=== PATIENT | female | born 1960 | race African-American/Black ===

== ENCOUNTER 2019-11-23 | Outpatient (REF) | payer OTHER, SELFPAY | END 2019-11-23 00:01 | disposition home or self-care (01) | LOC: HO.MDS | PROVIDERS: PCP Family Medicine; Visit Provider Internal Medicine Pulmonary Disease | DX: J45.50 Severe persistent asthma, uncomplicated (principal); K75.81 Nonalcoholic steatohepatitis (NASH); I77.819 Aortic ectasia, unspecified site; K59.04 Chronic idiopathic constipation | CPT/HCPCS: 99213 ==

== ENCOUNTER → 2019-11-24 10:26 | Outpatient (REF) | payer OTHER, SELFPAY ==
--- NOTE | 2019-11-24 10:19 | CA_ITS ---
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 The visually estimated ejection fraction is between 60-65%. - There is an interatrial septal aneurysm seen. Interatrial shunt cannot be excluded. - Recommend contrast study to evaluate intracardiac shunting. - No obvious valvular pathology seen on this study. - There is mild dilatation of the ascending aorta measuring 4.20 cm. Findings Left Ventricle Normal left ventricular cavity size. There is mildly increased left ventricular wall thickness. The left ventricular systolic function is normal. The visually estimated ejection fraction is between 60-65%. There is no evidence of regional wall motion abnormalities. Diastolic function is normal for age. Right Ventricle Normal right ventricular cavity size and systolic function. Atria The left atrium is normal in size. There is an interatrial septal aneurysm seen. Interatrial shunt cannot be excluded. The right atrium is normal in size. Aortic Valve There is a normal trileaflet aortic valve. There is mild calcification of the aortic valve. There is no aortic valve stenosis. There is trace (trivial) aortic valve regurgitation. Mitral Valve The mitral valve appears normal. There is trace mitral valve regurgitation. There is no mitral valve stenosis. Pulmonic Valve The pulmonic valve was not well visualized. There is trace pulmonic valve regurgitation. Tricuspid Valve Normal tricuspid valve structure. There is trace tricuspid valve regurgitation. The pulmonary artery systolic pressure is normal. Great Vessels There is mild dilatation of the ascending aorta measuring 4.20 cm. Venous The inferior vena cava is normal in size and collapses greater than 50% with inspiration. Pericardium/Pleural There is no evidence of pericardial effusion. Prior Study Comparison Changes noted compared to prior study dated: 02/04/2008. Recommendations, Care & Conclusions No obvious valvular pathology seen on this study. Recommend contrast study to evaluate intracardiac shunting. Measurements 2D Linear Measurements IVSd: 1.31 0.6-0.9/0.6-1.0 cm LVIDd: 4.53 3.9-5.3/4.2-5.9 cm LVIDd Index: 2.30 2.4-3.2/2.2-3.1 cm/m2 LVIDs: 3.49 2.0-3.6 cm LVPWd: 1.05 0.7-1.1 cm Ao Root: 3.30 2.1-3.5 cm LA Diam: 3.50 2.7-3.8/3.0-4.0 cm LAIDs Index: 1.78 1.5-2.3 cm/m2 LV Mass: 243.49 67-162/88-224 g LV Mass Index: 123.60 43-95/49-115 g/m2 LVOT Diam: 2.20 3.0+(-)1.3 cm 2D Systolic Function EF 4C: 73.50 >55% EF 2C: 57.10 >55% EF BiP: 66.40 >55% Mitral Valve MV Pk E: 0.38 MV PK A: 0.63 MV Decel Time: 296.00 E/A: 0.60 E'Lateral: 5.61 E'Medial: 5.42 E/E' Med: 7.00 E/E' Lat: 6.70 PHT: 87.00 MVA PHT: 2.53 Decel Mobile: 1.28 Aortic Valve AoV Pk Robert: 1.15 AoV Pk Grad: 5.00 AI Pk Robert: 3.73 AI Mobile: 1.19 LVOT LVOT Pk Robert: 0.95 LVOT Mn Robert: 0.71 LVOT VTI: 0.21 LVOT Pk Grad: 4.00 LVOT Mn Grad: 2.00 LVOT Diam: 2.20 LVOT Area: 3.80 Diastolic Function MV Pk E: 0.38 MV Pk A: 0.63 E/A: 0.60 E'Medial: 5.42 E/E' Med: 7.00 E' Laterial: 5.61 E/E' Lat: 6.70 Tricuspid Valve TR Pk Robert: 2.01 TR Pk Grad: 16.00 RA Press: 3.00 RVSP: 19.00 Great Vessels Aorta Ao Root-2D: 3.30 2.0-3.7 cm Ao Asc: 4.30 2.1-3.4 cm Updated in Other Vendor System with Status of Final Felipe Alanis MD electronically signed on 11/27/2019 1:06:05 PM with status of Final
== END ==
LOC: HO.CARD 10:26
PROVIDERS: PCP Nurse Practitioner Family; Visit Provider Internal Medicine Cardiovascular Disease
DX: R07.9 Chest pain, unspecified (principal)
CPT/HCPCS: 93306

== ENCOUNTER → 2019-11-25 09:42 | Outpatient (BNVA) | payer OTHER, SELFPAY | PROVIDERS: PCP Nurse Practitioner Primary Care; Referring Provider Nurse Practitioner Primary Care; Visit Provider Dietitian, Registered | DX: Z76.89 Persons encountering health services in other specified circumstances (principal) ==

== ENCOUNTER 2019-12-07 10:36 | Outpatient (REF) | payer OTHER, SELFPAY | END 2019-12-07 10:37 | disposition home or self-care (01) | LOC: HO.MDS 10:36 | PROVIDERS: PCP Family Medicine; Visit Provider Internal Medicine Pulmonary Disease | DX: J45.50 Severe persistent asthma, uncomplicated (principal) | CPT/HCPCS: 96372 ==

== ENCOUNTER 2019-12-07 11:02 | Outpatient (REF) | payer OTHER, SELFPAY | END 2019-12-07 11:03 | disposition home or self-care (01) | LOC: HO.LAB 11:02 | PROVIDERS: Visit Provider Internal Medicine | DX: Z20.828 Contact with and (suspected) exposure to other viral communicable diseases (principal) | CPT/HCPCS: 87635 ==

== ENCOUNTER 2019-12-14 13:29 | Outpatient (REF) | payer OTHER, SELFPAY | END 2019-12-14 13:30 | disposition home or self-care (01) | LOC: HO.LAB 13:29 | PROVIDERS: Visit Provider Internal Medicine | DX: Z20.828 Contact with and (suspected) exposure to other viral communicable diseases (principal) | CPT/HCPCS: 87635 ==

== ENCOUNTER 2019-12-22 10:42 | Outpatient (REF) | payer OTHER, SELFPAY | END 2019-12-22 10:43 | disposition home or self-care (01) | LOC: HO.MDS 10:42 | PROVIDERS: PCP Family Medicine; Visit Provider Internal Medicine Pulmonary Disease | DX: J45.909 Unspecified asthma, uncomplicated (principal) | CPT/HCPCS: 96372; J2357 ==

== ENCOUNTER 2019-12-23 17:15 | Outpatient (REF) | payer OTHER, SELFPAY | END 2019-12-23 17:16 | disposition home or self-care (01) | LOC: HO.LAB 17:15 | PROVIDERS: Visit Provider Internal Medicine | DX: Z20.828 Contact with and (suspected) exposure to other viral communicable diseases (principal) | CPT/HCPCS: C9803; U0003 ==

== ENCOUNTER 2019-12-25 10:51 | Emergency (ER) | payer OTHER, SELFPAY ==
--- NOTE | 2019-12-25 11:22 | XR_ITS ---
EXAMINATION: XR CHEST CLINICAL INFORMATION: Cough. COMPARISON: Several priors. Most recent of 11/17/19. TECHNIQUE: Frontal view of the chest was obtained. FINDINGS: There is a small linear opacity at the left base consistent with subsegmental atelectasis or scarring. The lungs are otherwise clear. The pleural spaces are clear. Heart size is normal. Atherosclerotic changes in the thoracic aorta with mild unfolding is unchanged. No acute bony abnormality. XR/XR chest 1V IMPRESSION: Small linear opacity left base. Otherwise unremarkable. No pneumonic consolidation.
--- NOTE | 2019-12-25 11:22 | ED_ITS ---
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 Mode of arrival: ambulatory Limitations: no limitations History of Present Illness MD elicited complaint: cough, rhinorrhea and nasal congestion Pertinent past history: asthma Onset (ago): day(s) (5) Consistency: constant Severity: moderate Able to tolerate fluids by mouth: Yes Exacerbating factors: nothing Relieving factors: nothing Associated symptoms: chills, myalgias, rhinorrhea, cough and shortness of breath Treatments prior to arrival: other (on prednisone x 5 days, had COVID test friday, has seen PCP) Related Data Home Medications Medication Instructions Recorded Confirmed acetaminophen 325 mg tablet 0 mg PO 11/20/19 11/20/19 albuterol sulfate 90 mcg/actuation 2 puff PO QID 11/20/19 11/20/19 aerosol inhaler alcohol swabs pad TOPICAL DAILY 11/20/19 11/20/19 amlodipine 10 mg tablet 10 mg PO BEDTIME 11/20/19 11/20/19 blood sugar diagnostic #10 ea 11/20/19 11/20/19 blood-glucose meter #1 ea 11/20/19 11/20/19 buspirone 5 mg tablet 5 mg PO BID 11/20/19 11/20/19 calcium carbonate 600 mg (1,500 1 tab PO BID 11/20/19 11/20/19 mg)-vitamin D3 400 unit tablet cetirizine 10 mg tablet 10 mg PO BEDTIME 11/20/19 11/20/19 cholecalciferol (vitamin D3) 50 50 mcg PO QAM 11/20/19 11/20/19 mcg (2,000 unit) capsule clonazepam 1 mg tablet 3 mg PO Q OTHER DAY PRN 11/20/19 11/20/19 cyclobenzaprine 10 mg tablet 10 mg PO DAILY PRN 11/20/19 11/20/19 docusate sodium 100 mg capsule 100 mg PO BID 11/20/19 11/20/19 doxycycline hyclate 100 mg capsule 100 mg PO Q12H 11/20/19 11/20/19 enalapril maleate 10 mg tablet 10 mg PO QAM 11/20/19 11/20/19 fluticasone propionate 220 1 puff PO BID 11/20/19 11/20/19 mcg/actuation HFA aerosol inhaler fluticasone propionate 50 1 spray INTRANASAL BID 11/20/19 11/20/19 mcg/actuation nasal spray,suspension gabapentin 400 mg capsule 400 mg PO 11/20/19 11/20/19 glucose 4 gram chewable tablet 16 g PO 11/20/19 11/20/19 hydrocodone-homatropine 5 mg-1.5 5 ml PO Q6H PRN 11/20/19 11/20/19 mg/5 mL oral syrup ipratropium 0.5 mg-albuterol 3 mg ml INHALATION Q6H PRN 11/20/19 11/20/19 (2.5 mg base)/3 mL nebulization soln ipratropium 20 mcg-albuterol 100 1 puff PO QID 11/20/19 11/20/19 mcg/actuation mist for inhalation lancets 33 gauge #100 ea 11/20/19 11/20/19 levothyroxine 75 mcg tablet 75 mcg PO QAM 11/20/19 11/20/19 meclizine 25 mg tablet mg PO 11/20/19 11/20/19 montelukast 10 mg tablet 10 mg PO DAILY 11/20/19 11/20/19 multivitamin-ferrous 1 tab PO QAM 11/20/19 11/20/19 fumarate-folic acid 18 mg-400 mcg tablet omalizumab 150 mg/mL subcutaneous mg SUBCUT 11/20/19 11/20/19 syringe omeprazole 20 mg capsule,delayed 20 mg PO QAM 11/20/19 11/20/19 release potassium chloride 20 mEq 20 meq PO BID 11/20/19 11/20/19 tablet,extended release(part/cryst) pravastatin 80 mg tablet 80 mg PO BEDTIME 11/20/19 11/20/19 risperidone 0.5 mg tablet 0.5 mg PO BID 11/20/19 11/20/19 tiotropium bromide 18 mcg capsule 1 cap INHALATION DAILY 11/20/19 11/20/19 with inhalation device tramadol 50 mg tablet 50 mg PO Q12H PRN 11/20/19 11/20/19 zolpidem 10 mg tablet 10 mg PO BEDTIME PRN 11/20/19 11/20/19 omeprazole 20 mg capsule,delayed 20 mg PO BID 11/23/19 11/23/19 release Previous Rx's Medication Instructions Recorded Saccharomyces swapnildii 250 mg 250 mg PO BID #50 ea 11/24/19 capsule glucose 4 gram chewable tablet 16 g PO Q15M PRN 30 Days #30 tab 12/03/19 plecanatide 3 mg tablet 3 mg PO DAILY 30 Days #30 tab 12/23/19 prednisone 10 mg tablet 40 mg PO DAILY 7 Days #28 tab 12/24/19 doxycycline hyclate 100 mg PO BID 7 Days #14 cap 12/25/19 hydrocodone-homatropine 5 ml PO Q6H PRN #60 ml 12/25/19 Allergies Allergy/AdvReac Type Severity Reaction Status Date / Time aspirin [Aspirin] Allergy Mild ITCHY Verified 12/25/19 11:59 THROAT azithromycin Allergy Unknown Unknown Verified 12/25/19 11:59 naproxen Allergy Unknown Unknown Verified 12/25/19 11:59 simvastatin Allergy Unknown Unknown Verified 12/25/19 11:59 onion [ONION] AdvReac Mild RED FACE Verified 12/25/19 11:59 Seafood Allergy Mild ITCHY Uncoded 12/25/19 11:59 THROAT,SWELLING 1st Choice Lancets Super Thin Allergy Unknown Unknown Uncoded 12/25/19 11:59 fish Allergy Unknown Unknown Uncoded 12/25/19 11:59 macrolide antibiotics Allergy Unknown Unknown Uncoded 12/25/19 11:59 NSAIDS Allergy Unknown Unknown Uncoded 12/25/19 11:59 onions Allergy Unknown Unknown Uncoded 12/25/19 11:59 salicylates Allergy Unknown Unknown Uncoded 12/25/19 11:59 SEAFOOD Allergy Unknown Unknown Uncoded 12/25/19 11:59 shellfish Allergy Unknown Unknown Uncoded 12/25/19 11:59 ANTIBIOTICS AdvReac Unknown RASH Uncoded 12/25/19 11:59 Review of Systems Review of Systems: Constitutional : No Fever, pos Chills, pos myalgias ENT/Mouth : No Hoarseness, No sore throat, pos Rhinorrhea Eyes: No Redness, No Discharge, No Vision Changes Cardiovascular : No Chest Pain, positive SOB, positive Dyspnea on Exertion, No Edema Respiratory : positive Cough, No Sputum, positive Wheezing, Gastrointestinal : No Nausea, No Vomiting, No Diarrhea, No abdominal Pain Genitourinary : No Dysuria, No Hematuria Musculoskeletal : No joint pain, No Myalgias Skin : No rash Neuro : No Weakness, No Numbness, No Headache Psych : No anxiety, depression Heme/Lymph: No Bruising, No Bleeding Endocrine : No Polyuria, No Polydipsia All other systems reviewed and are negative [facility] Past Medical History Attestation statement: The following information was validated with the patient. Medical History Cocaine abuse DVT (deep venous thrombosis) Menometrorrhagia Surgical History H/O colonoscopy with polypectomy History of esophagogastroduodenoscopy (EGD) History of hysterectomy History of lithotripsy History of selective injection of anesthetic agent around lumbar nerve root Hx of right breast biopsy Family History Family History (Updated 11/19/19 @ 12:32 by FABIAN Yang) Father No problems noted. Mother Myocardial infarction CVA (cerebral vascular accident) Social History Social History (Updated 12/25/19 @ 11:53 by Lenka Butt DO) Alcohol intake: never Smoking Status: Former smoker Use of substances other than those prescribed or required for medical reasons: No Advance Directives: No Advance Directives Information Provided: No Physical Exam Vital Signs: Vital Signs: Last Vital Signs Temp 98.7 F 12/25/19 12:04 Pulse 78 12/25/19 12:04 Resp 18 12/25/19 12:04 BP 148/91 H 12/25/19 12:04 Pulse Ox 95 12/25/19 12:04 Body Mass Index 37.2 Appearance: Alert. Oriented X3. No acute distress. Eyes: Pupils equal, round and reactive to light. ENT: Pharynx normal. Neck: Normal inspection. Neck supple. CVS: Normal heart rate and rhythm. Pulses normal. Respiratory: No respiratory distress. Breath sounds slightly decreased, mild end exp wheezes. Abdomen: Soft and nontender. Skin: Skin warm and dry. Normal skin color. Normal skin turgor. Extremities: No lower extremity edema. No calf ttp Neuro: Oriented X 3. No motor deficit. No sensory deficit. Course Course Course Narrative: feels better stable for DC MDM - URI/Sore Throat MDM Narrative Medical decision making narrative: 59 yo female with COPD, asthma here with URI symptoms, no hypoxia not toxic, no resp distress, already on steroids, will need neb, CXR, basic labs, COVID pending from Friday, anti tussive, possible doxy for bronchitis, dispo per results and findings. Lab Data Result diagrams: 12/25/19 12:12 12/25/19 12:12 Labs: Lab Results 12/25/19 12/25/19 12/25/19 Range/Units 12:12 12:12 12:12 WBC 7.6 (4.8-10.8) X10*3/uL RBC 4.26 (4.20-5.50) X10*6/uL Hgb 13.3 (12.0-16.0) g/dl Hct 39.2 (37-47) % MCV 92.0 (80-98) fL MCH 31.2 (27.0-33.0) pg MCHC 33.9 (31.0-35.0) g/dl RDW 13.5 (11.0-16.0) % Plt Count 265 (160-400) X10*3/uL MPV 9.6 (9.4-12.3) fL Immature Gran % (Auto) 0.3 (0.0-0.4) % Neut % (Auto) 78.4 H (45-73) % Lymph % (Auto) 18.0 L (20-40) % [place] % (Auto) 2.9 (2-11) % Eos % (Auto) 0.1 (0-4) % Baso % (Auto) 0.3 (0-2) % Lymph # (Auto) 1.4 (1.2-4.9) X10*3/uL [place] # (Auto) 0.2 (0.1-1.2) X10*3/uL Eos # (Auto) 0.0 (0.0-0.4) X10*3/uL Baso # (Auto) 0.0 (0.0-0.2) X10*3/uL Abs Immat Gran (auto) 0.02 (0.00-0.03) X10*3/uL Absolute Neuts (auto) 6.0 (2.0-8.3) X10*3/uL Absolute Nucleated RBC 0.000 (0.0-0.012) X10*3/uL Nucleated RBC % (auto) 0.0 (0.0-0.2) /100WBC Sodium 140 (135-145) mmol/L Potassium 3.9 (3.3-5.1) mmol/l Chloride 108 (96-108) mmol/L Carbon Dioxide 24 (22-29) mmol/L Anion Gap 12 (12-20) BUN 17 H (9-16) mg/dL Creatinine 0.86 (0.5-1.4) mg/dL Estim Creat Clear Calc 77.3 Estimated GFR > 60 Random Glucose 145 H (60-115) mg/dL Calcium 8.6 (8.4-10.2) mg/dL Troponin I High Sens < 3.5 (<3.5-17.0) ng/L ECG Data Attestation: I personally reviewed and interpreted this ECG as follows: ECG interpretation date: 12/25/19 ECG interpretation time: 11:50 Interpretation: Rate: 76 Rhythm: NSR with 1st degree AVB [place]: left, LVH Normal P waves. Normal NEREYDA. Normal QRS complex. ST T wave : normal qTC: normal prior studies: no acute ischemia The study has been interpreted contemporaneously by me. . Discharge Plan Discharge Clinical Impression: Bronchitis Patient Disposition: Home, Self-Care Instructions: Acute Bronchitis (ED) Prescriptions: New doxycycline hyclate 100 mg capsule 100 mg PO BID 7 Days Qty: 14 RF: 0 hydrocodone-homatropine 5-1.5 mg/5 mL (5 mL) syrup 5 ml PO Q6H PRN (Reason: cough) Qty: 60 RF: 0 No Action Saccharomyces boulardii [Florastor] 250 mg capsule 250 mg PO BID Qty: 50 RF: 5 glucose [Dex4 Glucose] 4 gram tablet,chewable 16 g PO Q15M PRN (Reason: hypoglycemia) 30 Days Qty: 30 RF: 5 plecanatide [Trulance] 3 mg tablet 3 mg PO DAILY 30 Days Qty: 30 RF: 5 prednisone 10 mg tablet 40 mg PO DAILY 7 Days Qty: 28 RF: 0 meclizine 25 mg tablet PO RF: 0 Xolair 150 mg/mL syringe subcut RF: 0 hydrocodone-homatropine 5-1.5 mg/5 mL syrup 5 ml PO Q6H PRN (Reason: cough) RF: 0 doxycycline hyclate 100 mg capsule 100 mg PO Q12H RF: 0 glucose 4 gram tablet,chewable 16 g PO RF: 0 tramadol 50 mg tablet 50 mg PO Q12H PRN (Reason: pain) RF: 0 ipratropium-albuterol 0.5 mg-3 mg(2.5 mg base)/3 mL solution for nebulization inhalation Q6H PRNRF: 0 alcohol swabs Pads, Medicated topical DAILY RF: 0 acetaminophen 325 mg tablet 0 mg PO RF: 0 zolpidem 10 mg tablet 10 mg PO BEDTIME PRNRF: 0 clonazepam 1 mg tablet 3 mg PO Q OTHER DAY PRNRF: 0 buspirone 5 mg tablet 5 mg PO BID RF: 0 Spiriva with HandiHaler 18 mcg capsule, w/inhalation device 1 cap inhalation DAILY RF: 0 fluticasone propionate 50 mcg/actuation spray,suspension 1 spray intranasal BID RF: 0 montelukast 10 mg tablet 10 mg PO DAILY RF: 0 Cerovite Advanced Formula 18-400 mg-mcg tablet 1 tab PO QAM RF: 0 cholecalciferol (vitamin D3) 50 mcg (2,000 unit) capsule 50 mcg PO QAM RF: 0 risperidone 0.5 mg tablet 0.5 mg PO BID RF: 0 albuterol sulfate 90 mcg/actuation HFA aerosol inhaler 2 puff PO QID RF: 0 docusate sodium 100 mg capsule 100 mg PO BID RF: 0 amlodipine 10 mg tablet 10 mg PO BEDTIME RF: 0 pravastatin 80 mg tablet 80 mg PO BEDTIME RF: 0 levothyroxine 75 mcg tablet 75 mcg PO QAM RF: 0 gabapentin 400 mg capsule 400 mg PO RF: 0 enalapril maleate 10 mg tablet 10 mg PO QAM RF: 0 cyclobenzaprine 10 mg tablet 10 mg PO DAILY PRNRF: 0 Combivent Respimat 20-100 mcg/actuation mist 1 puff PO QID RF: 0 (DME) lancets 33 gauge misc See Rx Instructions ea Not Applicable DAILY Qty: 100 RF: 0 Flovent HFA 220 mcg/actuation HFA aerosol inhaler 1 puff PO BID RF: 0 (DME) FreeStyle Lite Strips Strip See Rx Instructions ea Not Applicable DAILY Qty: 10 RF: 0 calcium carbonate-vitamin D3 600 mg(1,500mg) -400 unit tablet 1 tab PO BID RF: 0 omeprazole 20 mg capsule,delayed release(DR/EC) 20 mg PO QAM RF: 0 potassium chloride 20 mEq tablet,ER particles/crystals 20 meq PO BID RF: 0 cetirizine 10 mg tablet 10 mg PO BEDTIME RF: 0 (DME) blood-glucose meter Kit See Rx Instructions ea .ROUTE DAILY Qty: 1 RF: 0 omeprazole 20 mg capsule,delayed release(DR/EC) 20 mg PO BID RF: 0 Referrals: Sariah Vickers [Primary Care Provider] - 2 days (if not better) Print Language: Austrian
--- NOTE | 2019-12-25 11:32 | ECG_ITS ---
Test Reason : CHEST PAIN Blood Pressure : / mmHG Vent. Rate : 076 BPM Atrial Rate : 076 BPM P-R Int : 240 ms QRS Dur : 104 ms QT Int : 396 ms P-R-T Axes : 021 -32 021 degrees QTc Int : 445 ms Sinus rhythm with 1st degree A-V block Left anterior fascicular block Abnormal ECG When compared with ECG of 12-OCT-2019 19:41, No significant change was found Referred By: Lenka Btut Electronically Signed By:NATALIA WEBER MD
[2019-12-25 11:59] VITALS: BP 148/91; PULSE 83; RESP 16; TEMP 37.1; O2SAT 95; BMI 37.2
[2019-12-25] MEDS: HYDROcodone/Homat 5/1.5/5 ML 5 ML SYRUP PO (12:02)
[2019-12-25 12:04] VITALS: BP 148/91; PULSE 78; RESP 18; TEMP 37.1; O2SAT 95
[2019-12-25 12:17] LABS: Basophils Percent Auto 0.3 % (0-2); Eosinophils Percent Auto 0.1 % (0-4); Hematocrit 39.2 % (37-47); Hemoglobin 13.3 g/dl (12.0-16.0); Imm Gran Abs Auto 0.02 X10*3/uL (0.00-0.03); Imm Gran Pct Auto 0.3 % (0.0-0.4); Lymphocytes Absolute Auto 1.4 X10*3/uL (1.2-4.9); MANUAL DIFF FLAG NO; Mean Corpuscular HGB Conc 33.9 g/dl (31.0-35.0); Mean Corpuscular Hemoglobin 31.2 pg (27.0-33.0); Mean Platelet Volume 9.6 fL (9.4-12.3); Monocytes Absolute Auto 0.2 X10*3/uL (0.1-1.2); Monocytes Percent Auto 2.9 % (2-11); Neutrophils Percent Auto 78.4 % (45-73); Platelet Count 265 X10*3/uL (160-400); Red Blood Count 4.26 X10*6/uL (4.20-5.50); Red Cell Distribution Width 13.5 % (11.0-16.0); White Blood Count 7.6 X10*3/uL (4.8-10.8)
[2019-12-25 12:52] LABS: Anion Gap 12 (12-20); Blood Urea Nitrogen 17 mg/dL (9-16); Calcium 8.6 mg/dL (8.4-10.2); Carbon Dioxide 24 mmol/L (22-29); Chloride 108 mmol/L (96-108); Creatinine Clr Calc Pharmacy 77.3; Estimated Glomerular Filt Rate > 60; Glucose Random 145 mg/dL (60-115); Potassium 3.9 mmol/l (3.3-5.1); Sodium 140 mmol/L (135-145)
[2019-12-25 12:56] LABS: Troponin-I High Sensitivity < 3.5 ng/L (<3.5-17.0)
[2019-12-25] MEDS: Albuterol Sulfate (0.083%) 2.5 MG/3 ML VIAL.NEB INHALE (13:50)
[2019-12-25 14:02] VITALS: BP 146/96; PULSE 88; RESP 18; O2SAT 95
--- NOTE | 2019-12-25 14:09 | PC.NURSE ---
PT WAS TRIAGED C/O GENERAL MALAISE, PRODUCTIVE COUGH, CHILLS AT HOME X A FEW DAYS. LS CLEAR, HX ASTHMA. VS WNL, AFEBRILE. CALL MADE OUT TO RESPIRATORY FOR NEB TX. PT SPEAKING IN CLEAR FULL SENTENCES, RESP EVEN AND NONLABOURED. SKIN COLOUR APPROPRIATE FOR ETHNICITY, WARM & DRY.
== END 2019-12-25 14:15 | disposition home or self-care (01) ==
PROVIDERS: Emergency Provider Emergency Medicine
DX: J40 Bronchitis, not specified as acute or chronic (principal); R05 Cough; M79.10 Myalgia, unspecified site; Z79.899 Other long term (current) drug therapy
CPT/HCPCS: 36415; 71045; 80048; 84484; 85025; 93005; 94640; 99284; 99285

== ENCOUNTER 2020-01-06 10:09 | Outpatient (REF) | payer OTHER, SELFPAY | END 2020-01-06 10:10 | disposition home or self-care (01) | LOC: HO.MDS 10:09 | PROVIDERS: Visit Provider Internal Medicine Pulmonary Disease | DX: J45.909 Unspecified asthma, uncomplicated (principal) | CPT/HCPCS: 96372; J2357 ==

== ENCOUNTER 2020-01-11 17:09 | Outpatient (REF) | payer OTHER, SELFPAY | END 2020-01-11 17:10 | disposition home or self-care (01) | LOC: HO.LAB 17:09 | PROVIDERS: PCP Nurse Practitioner Primary Care; Visit Provider Internal Medicine | DX: Z20.828 Contact with and (suspected) exposure to other viral communicable diseases (principal) | CPT/HCPCS: C9803; U0003 ==

== ENCOUNTER 2020-01-17 08:42 | Outpatient (REF) | payer OTHER, SELFPAY ==
[2020-01-17 10:47] LABS: Estimated Average Glucose 166 mg/dL; Hemoglobin A1c % 7.4 %
[2020-01-17 11:25] LABS: Alanine Aminotransferase 16 U/L (0-31); Albumin Level 4.2 g/dL (3.5-5.0); Alkaline Phosphatase 84 U/L (39-117); Anion Gap 13 (12-20); Aspartate Amino Transferase 19 U/L (5-31); Bilirubin Total 0.4 mg/dL (0.0-1.0); Blood Urea Nitrogen 11 mg/dL (9-16); Calcium 8.8 mg/dL (8.4-10.2); Carbon Dioxide 26 mmol/L (22-29); Chloride 107 mmol/L (96-108); Cholesterol 197 mg/dL; Estimated Glomerular Filt Rate > 60; Glucose Fasting 139 mg/dL (60-99); HDL Cholesterol 64 mg/dL; LDL Cholesterol Calculated 110 mg/dl; Sodium 142 mmol/L (135-145); Total Protein 6.9 g/dL (6.5-8.0); Triglycerides 117 mg/dL
[2020-01-17 11:39] LABS: Vitamin B12 716 pg/mL (200-900)
[2020-01-17 11:40] LABS: Free T4 (Free Thyroxine) 1.04 ng/dL (0.71-1.85); Thyroid Stimulating Hormone 3.35 uIU/mL (0.32-4.0)
[2020-01-17 11:53] LABS: Creatinine Urine 152.71 mg/dL; Microalbum/Creatinine Ratio Ur 9.8 ug/mg cr
[2020-01-18 07:28] LABS: LDL Cholesterol Direct 111 mg/dL (<100)
== END 2020-01-17 08:43 | disposition home or self-care (01) ==
LOC: HO.LAB 08:42
PROVIDERS: PCP Nurse Practitioner Primary Care; Visit Provider Internal Medicine Endocrinology, Diabetes & Metabolism
DX: E11.65 Type 2 diabetes mellitus with hyperglycemia (principal)
CPT/HCPCS: 80053; 80061; 82043; 82607; 83036; 83721; 84439; 84443

== ENCOUNTER 2020-01-17 10:30 | Outpatient (RCR) | payer OTHER, SELFPAY | END 2020-03-06 11:06 | disposition other institution (70) | LOC: HO.PT 10:30 | PROVIDERS: Visit Provider Nurse Practitioner Primary Care | DX: R42 Dizziness and giddiness (principal) | CPT/HCPCS: 95992; 97161; 97535; Q3014 ==

== ENCOUNTER 2020-01-18 13:53 | Emergency (ER) | payer OTHER, SELFPAY | END 2020-01-18 16:49 | disposition left against medical advice (07) | PROVIDERS: Emergency Provider Emergency Medicine | DX: L02.214 Cutaneous abscess of groin (principal); Z79.899 Other long term (current) drug therapy | CPT/HCPCS: 10060; 99281 ==

== ENCOUNTER 2020-01-19 08:56 | Emergency (ER) | payer OTHER, SELFPAY ==
[2020-01-19 09:06] VITALS: BP 128/72; PULSE 97; RESP 18; TEMP 36.6; O2SAT 97; BMI 38.6
--- NOTE | 2020-01-19 09:17 | XR_ITS ---
EXAMINATION: XR CHEST CLINICAL INFORMATION: Shortness of breath, cough COMPARISON: Chest radiographs 12/25/2019, 11/17/2019, 11/11/2019 TECHNIQUE: Portable upright AP view of the chest was obtained. FINDINGS: The lungs are clear. There is no airspace consolidation or groundglass opacity or effusion. Subsegmental atelectasis left lateral base noted on prior study is resolved. The heart is normal in size. The costophrenic sulci are clear. The hilar and mediastinal contours and bony structures are unremarkable. XR/XR chest 1V IMPRESSION: Unremarkable examination.
--- NOTE | 2020-01-19 09:26 | ED.URI ---
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 No fevers, chills, vomiting. No shortness of breath or chest pain. <Alexandra Martinez NP - Last Filed: 01/19/20 12:08> MD elicited complaint: cough <MARKO Mcdaniels Last Filed: 01/19/20 12:08> Pertinent past history: asthma <MARKO Mcdaniels Last Filed: 01/19/20 12:08> Onset (ago): day(s) <MARKO Mcdaniels Last Filed: 01/19/20 12:08> Consistency: intermittent <MARKO Mcdaniels Last Filed: 01/19/20 12:08> Severity: mild <MARKO Mcdaniels Last Filed: 01/19/20 12:08> Able to tolerate fluids by mouth: Yes <MARKO Mcdaniels Last Filed: 01/19/20 12:08> Exacerbating factors: nothing <MARKO Mcdaniels Last Filed: 01/19/20 12:08> Relieving factors: nothing <Alexandra Martinez NP - Last Filed: 01/19/20 12:08> Associated symptoms: chills, myalgias, headache, cough, abdominal pain and diarrhea <Alexandra Martinez NP - Last Filed: 01/19/20 12:08> Treatments prior to arrival: none <Alexandra Martinez NP - Last Filed: 01/19/20 12:08> Related Data Home Medications: Home Medications Medication Instructions Recorded Confirmed acetaminophen 325 mg tablet 0 mg PO 11/20/19 01/11/20 albuterol sulfate 90 mcg/actuation 2 puff PO QID 11/20/19 01/11/20 aerosol inhaler alcohol swabs pad TOPICAL DAILY 11/20/19 01/11/20 amlodipine 10 mg tablet 10 mg PO BEDTIME 11/20/19 01/11/20 blood sugar diagnostic #10 ea 11/20/19 01/11/20 blood-glucose meter #1 ea 11/20/19 01/11/20 buspirone 5 mg tablet 5 mg PO BID 11/20/19 01/11/20 calcium carbonate 600 mg (1,500 1 tab PO BID 11/20/19 01/11/20 mg)-vitamin D3 400 unit tablet cetirizine 10 mg tablet 10 mg PO BEDTIME 11/20/19 01/11/20 cholecalciferol (vitamin D3) 50 50 mcg PO QAM 11/20/19 01/11/20 mcg (2,000 unit) capsule clonazepam 1 mg tablet 3 mg PO Q OTHER DAY PRN 11/20/19 01/11/20 cyclobenzaprine 10 mg tablet 10 mg PO DAILY PRN 11/20/19 01/11/20 docusate sodium 100 mg capsule 100 mg PO BID 11/20/19 01/11/20 enalapril maleate 10 mg tablet 10 mg PO QAM 11/20/19 01/11/20 fluticasone propionate 220 1 puff PO BID 11/20/19 01/11/20 mcg/actuation HFA aerosol inhaler fluticasone propionate 50 1 spray INTRANASAL BID 11/20/19 01/11/20 mcg/actuation nasal spray,suspension gabapentin 400 mg capsule 400 mg PO 11/20/19 01/11/20 glucose 4 gram chewable tablet 16 g PO 11/20/19 01/11/20 hydrocodone-homatropine 5 mg-1.5 5 ml PO Q6H PRN 11/20/19 01/11/20 mg/5 mL oral syrup ipratropium 0.5 mg-albuterol 3 mg ml INHALATION Q6H PRN 11/20/19 01/11/20 (2.5 mg base)/3 mL nebulization soln ipratropium 20 mcg-albuterol 100 1 puff PO QID 11/20/19 01/11/20 mcg/actuation mist for inhalation lancets 33 gauge #100 ea 11/20/19 01/11/20 meclizine 25 mg tablet mg PO 11/20/19 01/11/20 montelukast 10 mg tablet 10 mg PO DAILY 11/20/19 01/11/20 multivitamin-ferrous 1 tab PO QAM 11/20/19 01/11/20 fumarate-folic acid 18 mg-400 mcg tablet omalizumab 150 mg/mL subcutaneous mg SUBCUT 11/20/19 01/11/20 syringe potassium chloride 20 mEq 20 meq PO BID 11/20/19 01/11/20 tablet,extended release(part/cryst) risperidone 0.5 mg tablet 0.5 mg PO BID 11/20/19 01/11/20 tramadol 50 mg tablet 50 mg PO Q12H PRN 11/20/19 01/11/20 zolpidem 10 mg tablet 10 mg PO BEDTIME PRN 11/20/19 01/11/20 omeprazole 20 mg capsule,delayed 20 mg PO BID 11/23/19 01/11/20 release codeine 10 mg-guaifenesin 100 mg/5 10 ml PO Q6H PRN 01/11/20 01/11/20 mL oral liquid fluticasone 250 mcg-salmeterol 50 ea INHALATION 01/11/20 01/11/20 mcg/dose blistr powdr for inhalation Previous Rx's Medication Instructions Recorded Saccharomyces boulardii 250 mg 250 mg PO BID #50 ea 11/24/19 capsule glucose 4 gram chewable tablet 16 g PO Q15M PRN 30 Days #30 tab 12/03/19 plecanatide 3 mg tablet 3 mg PO DAILY 30 Days #30 tab 12/23/19 hydrocodone-homatropine 5 ml PO Q6H PRN #60 ml 12/25/19 tiotropium bromide 18 mcg capsule 1 cap INHALATION DAILY 30 Days #30 12/31/19 with inhalation device inh levothyroxine 75 mcg tablet 75 mcg PO QAM 90 Days #90 tab 01/11/20 metformin 500 mg tablet,extended 500 mg PO BID 30 Days #60 tab 01/11/20 release 24 hr prednisone 40 mg PO DAILY #10 tab 01/19/20 bisacodyl 5 mg tablet,delayed See Rx Instructions PO BEDTIME 30 01/27/20 release Days #90 tab rosuvastatin 40 mg tablet 40 mg PO DAILY 30 Days #30 tab 01/27/20 <Alexandra Martinez NP - Last Filed: 01/19/20 12:08> Allergies/Adverse Reactions: Allergies Allergy/AdvReac Type Severity Reaction Status Date / Time aspirin [Aspirin] Allergy Mild ITCHY Verified 01/28/20 09:46 THROAT azithromycin Allergy Unknown Unknown Verified 01/28/20 09:46 naproxen Allergy Unknown Unknown Verified 01/28/20 09:46 simvastatin Allergy Unknown Unknown Verified 01/28/20 09:46 onion [ONION] AdvReac Mild RED FACE Verified 01/28/20 09:46 <Alexandra Martinez NP - Last Filed: 01/19/20 12:08> Review of Systems Review of Systems: Yes all other systems are reviewed and are negative <Alexandra Martinez NP - Last Filed: 01/19/20 12:08> Constitutional: Constitutional: Reports no additional constitutional complaints, Reports body ache(s), Denies chills, Denies fever(s), Denies headache(s) and Denies weakness <Alexandra Martinez NP - Last Filed: 01/19/20 12:08> Eyes: Eyes: Reports no additional eye complaints and Denies change in vision <Alexandra Martinez NP - Last Filed: 01/19/20 12:08> ENT: Reports system reviewed and no additional complaints, except as documented, Denies dizziness, Denies headache(s), Denies nasal congestion, Denies nasal discharge and Denies neck pain <Alexandra Martinez NP - Last Filed: 01/19/20 12:08> Cardiovascular: Cardiovascular: Reports no additional cardiovascular complaints, Denies chest pain, Denies leg edema and Denies dyspnea <Alexandra Martinez NP - Last Filed: 01/19/20 12:08> Respiratory: Respiratory: Reports no additional respiratory complaints, Reports cough and Denies dyspnea <Alexandra Martinez NP - Last Filed: 01/19/20 12:08> Gastrointestinal: Gastrointestinal: Reports no additional gastrointestinal complaints, Reports abdominal pain, Reports diarrhea, Denies nausea and Denies vomiting <Alexandra Martinez NP - Last Filed: 01/19/20 12:08> Genitourinary: Genitourinary: Reports no additional female genitourinary complaints and Denies urinary incontinence <Alexandra Martinez NP - Last Filed: 01/19/20 12:08> Musculoskeletal: Musculoskeletal: Reports no additional musculoskeletal complaints, Denies back pain, Denies arthralgias, Denies joint swelling, Denies neck pain, Denies numbness and Denies tingling <Alexandra Martinez NP - Last Filed: 01/19/20 12:08> Integumentary/Breasts: Skin/Breast: Reports system reviewed and no additional complaints, except as docu and Denies rash <Alexandra Martinez NP - Last Filed: 01/19/20 12:08> Neurologic: Reports system reviewed and no additional complaints, except as documented, Denies Abnormal speech present, Denies dizziness, Denies headache(s), Denies numbness, Denies tingling and Denies weakness <Alexandra Martinez NP - Last Filed: 01/19/20 12:08> PMF Past Medical History Attestation statement: The following information was validated with the patient. <Alexandra Martinez NP - Last Filed: 01/19/20 12:08> Source: old records reviewed and nursing notes reviewed <Alexandra Martinez NP - Last Filed: 01/19/20 12:08> Medical History: Medical History Cocaine abuse DVT (deep venous thrombosis) Hypothyroidism Menometrorrhagia Non-toxic multinodular goiter <Alexandra Martinez NP - Last Filed: 01/19/20 12:08> Surgical History: Surgical History H/O colonoscopy with polypectomy History of esophagogastroduodenoscopy (EGD) History of hysterectomy History of lithotripsy History of selective injection of anesthetic agent around lumbar nerve root Hx of right breast biopsy <Alexandra Martinez NP - Last Filed: 01/19/20 12:08> Family History Family History: Family History Father No problems noted. Mother Myocardial infarction CVA (cerebral vascular accident) <Alexandra Martinez NP - Last Filed: 01/19/20 12:08> Social History Social History: Social History (Updated 01/27/20 @ 08:36 by LIZET Cox) Household Members: None Alcohol intake: current Alcohol intake frequency: does not drink Smoking Status: Former smoker Smoked in Last 30 Days: No Use of substances other than those prescribed or required for medical reasons: No Advance Directives: No Advance Directives Information Provided: Yes Current occupational status: disabled <Alexandra Martinez NP - Last Filed: 01/19/20 12:08> Physical Exam Vital Signs: Vital Signs: Last Vital Signs Temp 97.6 F 01/19/20 11:04 Pulse 76 01/19/20 11:04 Resp 16 01/19/20 11:04 BP 131/90 H 01/19/20 11:04 Pulse Ox 98 01/19/20 11:14 Body Mass Index 38.6 <Alexandra Martinez NP - Last Filed: 01/19/20 12:08> Vital Signs: Last Vital Signs Temp 97.6 F 01/19/20 11:04 Pulse 76 01/19/20 11:04 Resp 16 01/19/20 11:04 BP 131/90 H 01/19/20 11:04 Pulse Ox 98 01/19/20 11:14 Body Mass Index 38.6 <Juan Ramon Vickers MD - Last Filed: 02/06/20 19:59> Const: General: cooperative, healthy appearing, comfortable and no acute distress <Alexandra Martinez NP - Last Filed: 01/19/20 12:08> Orientation/consciousness: patient oriented x3 <Alexandra Martinez NP - Last Filed: 01/19/20 12:08> Limitations: no limitations <Alexandra Martinez NP - Last Filed: 01/19/20 12:08> HENMT: Head: Yes normal to inspection <Alexandra Martinez NP - Last Filed: 01/19/20 12:08> Ears: hearing grossly normal bilaterally <Alexandra Martinez NP - Last Filed: 01/19/20 12:08> General nose exam: Normal external nose present <Alexandra Martinez NP - Last Filed: 01/19/20 12:08> Face and sinus: Yes normal facial exam <Alexandra Martinez NP - Last Filed: 01/19/20 12:08> Mouth: Normal oral and palatal mucosa present <Alexandra Martinez NP - Last Filed: 01/19/20 12:08> Throat: Yes posterior oropharynx normal <Alexandra Martinez NP - Last Filed: 01/19/20 12:08> Eyes: General: appearance normal, both eyes and all related structures <Alexandra Martinez NP - Last Filed: 01/19/20 12:08> Pupils: Equal, round and reactive pupils present <Alexandra Martinez NP - Last Filed: 01/19/20 12:08> Neck: Neck: Yes normal visual inspection <Alexandra Martinez NP - Last Filed: 01/19/20 12:08> Chest: Chest palpation & inspection: normal inspection of the chest <Alexandra Martinez NP - Last Filed: 01/19/20 12:08> Resp: Other: Patient has a forced expiratory wheeze. She has no inspiratory or expiratory wheezing on her lung exam. <Alexandra Martinez NP - Last Filed: 01/19/20 12:08> Effort & Inspection: normal respiratory effort <Alexandra Martinez NP - Last Filed: 01/19/20 12:08> Auscultation: clear to auscultation bilaterally <Alexandra Martinez NP - Last Filed: 01/19/20 12:08> Cardio: Rate: regular rate <Alexandra Martinez NP - Last Filed: 01/19/20 12:08> Rhythm: regular rhythm <Alexandra Martinez NP - Last Filed: 01/19/20 12:08> Peripheral pulses: Peripheral pulses 2+ throughout <Alexandra Martinez NP - Last Filed: 01/19/20 12:08> GI: Other: Mild epigastric discomfort. No rebound or guarding. <Alexandra Martinez NP - Last Filed: 01/19/20 12:08> Inspection: Yes normal to inspection <Alexandra Martinez NP - Last Filed: 01/19/20 12:08> Palpation (GI): Soft to palpation, nontender and no guarding <Alexandra Martinez NP - Last Filed: 01/19/20 12:08> Auscultation: normal bowel sounds <Alexandra Martinez NP - Last Filed: 01/19/20 12:08> Back/Spine/Pelvis: Thoracic/Lumbar Spine: thoracic and lumbar spine normal to inspection <Alexandra Martinez NP - Last Filed: 01/19/20 12:08> Skin: General skin exam: no rashes or lesions noted <Alexandra Martinez NP - Last Filed: 01/19/20 12:08> Neuro: General: patient oriented x3, no focal motor deficits and normal sensation to monofilament <Alexandra Martinez NP - Last Filed: 01/19/20 12:08> Cranial nerves: Yes Equal, round and reactive pupils present <Alexandra Martinez NP - Last Filed: 01/19/20 12:08> Cognition (Neuro): normal cognition <Alexandra Martinez NP - Last Filed: 01/19/20 12:08> Speech: No Abnormal speech present <Alexandra Martinez NP - Last Filed: 01/19/20 12:08> Gait exam (Neuro): Normal gait present <Alexandra Martinez NP - Last Filed: 01/19/20 12:08> Motor exam (neuro): 5/5 motor strength present throughout <Alexandra Martinez NP - Last Filed: 01/19/20 12:08> Extrem: General: Yes normal to inspection <Alexandra Martinez NP - Last Filed: 01/19/20 12:08> Course Course Course Narrative: 59-year-old female here with cough, congestion, chills, body aches, headache, upper abdominal pain diarrhea for the last 3-4 days. On exam patient appears well, stable vital signs, afebrile. Mild epigastric discomfort. Will check labs, COVID testing, chest x-ray. Will give bronchodilator, GI cocktail reassess. 1140- Labs unremarkable. Chest x-ray unremarkable. COVID testing negative. Patient is feeling improved and is tolerating p.o.. No abdominal pain on exam. Her lungs are clear with stable saturations. Likely viral syndrome with some gastritis. Reviewed worrisome signs and symptoms and when to return to the emergency department. Comfortable discharge home. <Alexandra Martinez NP - Last Filed: 01/19/20 12:08> I have reviewed the chart <Juan Ramon Vickers MD - Last Filed: 02/06/20 19:59> MDM - URI/Sore Throat Medical Records Attestation: I reviewed the patient's medical records. <Alexandra Martinez NP - Last Filed: 01/19/20 12:08> Lab Data Attestation: I reviewed the patient's lab results. <Alexandra Martinez NP - Last Filed: 01/19/20 12:08> Result diagrams: : 01/19/20 10:03 01/19/20 10:03 <Alexandra Martinez NP - Last Filed: 01/19/20 12:08> Labs: Lab Results 01/19/20 01/19/20 01/19/20 Range/Units 10:00 10:03 10:03 WBC 6.3 (4.8-10.8) X10*3/uL RBC 4.59 (4.20-5.50) X10*6/uL Hgb 14.1 (12.0-16.0) g/dl Hct 42.9 (37-47) % MCV 93.5 (80-98) fL MCH 30.7 (27.0-33.0) pg MCHC 32.9 (31.0-35.0) g/dl RDW 13.9 (11.0-16.0) % Plt Count 289 (160-400) X10*3/uL MPV 9.7 (9.4-12.3) fL Immature Gran % (Auto) 0.2 (0.0-0.4) % Neut % (Auto) 43.4 L (45-73) % Lymph % (Auto) 47.6 H (20-40) % [place] % (Auto) 6.2 (2-11) % Eos % (Auto) 2.1 (0-4) % Baso % (Auto) 0.5 (0-2) % Lymph # (Auto) 3.0 (1.2-4.9) X10*3/uL [place] # (Auto) 0.4 (0.1-1.2) X10*3/uL Eos # (Auto) 0.1 (0.0-0.4) X10*3/uL Baso # (Auto) 0.0 (0.0-0.2) X10*3/uL Abs Immat Gran (auto) 0.01 (0.00-0.03) X10*3/uL Absolute Neuts (auto) 2.7 (2.0-8.3) X10*3/uL Absolute Nucleated RBC 0.000 (0.0-0.012) X10*3/uL Nucleated RBC % (auto) 0.0 (0.0-0.2) /100WBC Hold Blue Top SEE NOTE Sodium (135-145) mmol/L Potassium (3.3-5.1) mmol/l Chloride (96-108) mmol/L Carbon Dioxide (22-29) mmol/L Anion Gap (12-20) BUN (9-16) mg/dL Creatinine (0.5-1.4) mg/dL Estim Creat Clear Calc Estimated GFR Random Glucose (60-115) mg/dL Calcium (8.4-10.2) mg/dL Magnesium (1.6-2.6) mg/dL Total Bilirubin (0.0-1.0) mg/dL Direct Bilirubin (0.0-0.5) mg/dL AST (5-31) U/L ALT (0-31) U/L Alkaline Phosphatase (39-117) U/L Total Protein (6.5-8.0) g/dL Albumin (3.5-5.0) g/dL Lipase (8-78) U/L Coronavirus (PCR) NEGATIVE (Negative) Influenza Type A (PCR) NEGATIVE (Negative) Influenza Type B (PCR) NEGATIVE (Negative) RSV RNA Qual (PCR) NEGATIVE (Negative) 01/19/20 Range/Units 10:03 WBC (4.8-10.8) X10*3/uL RBC (4.20-5.50) X10*6/uL Hgb (12.0-16.0) g/dl Hct (37-47) % MCV (80-98) fL MCH (27.0-33.0) pg MCHC (31.0-35.0) g/dl RDW (11.0-16.0) % Plt Count (160-400) X10*3/uL MPV (9.4-12.3) fL Immature Gran % (Auto) (0.0-0.4) % Neut % (Auto) (45-73) % Lymph % (Auto) (20-40) % [place] % (Auto) (2-11) % Eos % (Auto) (0-4) % Baso % (Auto) (0-2) % Lymph # (Auto) (1.2-4.9) X10*3/uL [place] # (Auto) (0.1-1.2) X10*3/uL Eos # (Auto) (0.0-0.4) X10*3/uL Baso # (Auto) (0.0-0.2) X10*3/uL Abs Immat Gran (auto) (0.00-0.03) X10*3/uL Absolute Neuts (auto) (2.0-8.3) X10*3/uL Absolute Nucleated RBC (0.0-0.012) X10*3/uL Nucleated RBC % (auto) (0.0-0.2) /100WBC Hold Blue Top Sodium 142 (135-145) mmol/L Potassium 4.1 (3.3-5.1) mmol/l Chloride 108 (96-108) mmol/L Carbon Dioxide 25 (22-29) mmol/L Anion Gap 13 (12-20) BUN 14 (9-16) mg/dL Creatinine 0.88 (0.5-1.4) mg/dL Estim Creat Clear Calc 77.2 Estimated GFR > 60 Random Glucose 134 H (60-115) mg/dL Calcium 9.4 D (8.4-10.2) mg/dL Magnesium 2.2 (1.6-2.6) mg/dL Total Bilirubin 0.4 (0.0-1.0) mg/dL Direct Bilirubin < 0.2 (0.0-0.5) mg/dL AST 20 (5-31) U/L ALT 15 (0-31) U/L Alkaline Phosphatase 80 (39-117) U/L Total Protein 6.9 (6.5-8.0) g/dL Albumin 4.1 (3.5-5.0) g/dL Lipase 19 (8-78) U/L Coronavirus (PCR) (Negative) Influenza Type A (PCR) (Negative) Influenza Type B (PCR) (Negative) RSV RNA Qual (PCR) (Negative) <Alexandra Martinez NP - Last Filed: 01/19/20 12:08> Lab Results 01/19/20 01/19/20 01/19/20 Range/Units 10:00 10:03 10:03 WBC 6.3 (4.8-10.8) X10*3/uL RBC 4.59 (4.20-5.50) X10*6/uL Hgb 14.1 (12.0-16.0) g/dl Hct 42.9 (37-47) % MCV 93.5 (80-98) fL MCH 30.7 (27.0-33.0) pg MCHC 32.9 (31.0-35.0) g/dl RDW 13.9 (11.0-16.0) % Plt Count 289 (160-400) X10*3/uL MPV 9.7 (9.4-12.3) fL Immature Gran % (Auto) 0.2 (0.0-0.4) % Neut % (Auto) 43.4 L (45-73) % Lymph % (Auto) 47.6 H (20-40) % [place] % (Auto) 6.2 (2-11) % Eos % (Auto) 2.1 (0-4) % Baso % (Auto) 0.5 (0-2) % Lymph # (Auto) 3.0 (1.2-4.9) X10*3/uL [place] # (Auto) 0.4 (0.1-1.2) X10*3/uL Eos # (Auto) 0.1 (0.0-0.4) X10*3/uL Baso # (Auto) 0.0 (0.0-0.2) X10*3/uL Abs Immat Gran (auto) 0.01 (0.00-0.03) X10*3/uL Absolute Neuts (auto) 2.7 (2.0-8.3) X10*3/uL Absolute Nucleated RBC 0.000 (0.0-0.012) X10*3/uL Nucleated RBC % (auto) 0.0 (0.0-0.2) /100WBC Hold Blue Top SEE NOTE Sodium (135-145) mmol/L Potassium (3.3-5.1) mmol/l Chloride (96-108) mmol/L Carbon Dioxide (22-29) mmol/L Anion Gap (12-20) BUN (9-16) mg/dL Creatinine (0.5-1.4) mg/dL Estim Creat Clear Calc Estimated GFR Random Glucose (60-115) mg/dL Calcium (8.4-10.2) mg/dL Magnesium (1.6-2.6) mg/dL Total Bilirubin (0.0-1.0) mg/dL Direct Bilirubin (0.0-0.5) mg/dL AST (5-31) U/L ALT (0-31) U/L Alkaline Phosphatase (39-117) U/L Total Protein (6.5-8.0) g/dL Albumin (3.5-5.0) g/dL Lipase (8-78) U/L Coronavirus (PCR) NEGATIVE (Negative) Influenza Type A (PCR) NEGATIVE (Negative) Influenza Type B (PCR) NEGATIVE (Negative) RSV RNA Qual (PCR) NEGATIVE (Negative) 01/19/20 Range/Units 10:03 WBC (4.8-10.8) X10*3/uL RBC (4.20-5.50) X10*6/uL Hgb (12.0-16.0) g/dl Hct (37-47) % MCV (80-98) fL MCH (27.0-33.0) pg MCHC (31.0-35.0) g/dl RDW (11.0-16.0) % Plt Count (160-400) X10*3/uL MPV (9.4-12.3) fL Immature Gran % (Auto) (0.0-0.4) % Neut % (Auto) (45-73) % Lymph % (Auto) (20-40) % [place] % (Auto) (2-11) % Eos % (Auto) (0-4) % Baso % (Auto) (0-2) % Lymph # (Auto) (1.2-4.9) X10*3/uL [place] # (Auto) (0.1-1.2) X10*3/uL Eos # (Auto) (0.0-0.4) X10*3/uL Baso # (Auto) (0.0-0.2) X10*3/uL Abs Immat Gran (auto) (0.00-0.03) X10*3/uL Absolute Neuts (auto) (2.0-8.3) X10*3/uL Absolute Nucleated RBC (0.0-0.012) X10*3/uL Nucleated RBC % (auto) (0.0-0.2) /100WBC Hold Blue Top Sodium 142 (135-145) mmol/L Potassium 4.1 (3.3-5.1) mmol/l Chloride 108 (96-108) mmol/L Carbon Dioxide 25 (22-29) mmol/L Anion Gap 13 (12-20) BUN 14 (9-16) mg/dL Creatinine 0.88 (0.5-1.4) mg/dL Estim Creat Clear Calc 77.2 Estimated GFR > 60 Random Glucose 134 H (60-115) mg/dL Calcium 9.4 D (8.4-10.2) mg/dL Magnesium 2.2 (1.6-2.6) mg/dL Total Bilirubin 0.4 (0.0-1.0) mg/dL Direct Bilirubin < 0.2 (0.0-0.5) mg/dL AST 20 (5-31) U/L ALT 15 (0-31) U/L Alkaline Phosphatase 80 (39-117) U/L Total Protein 6.9 (6.5-8.0) g/dL Albumin 4.1 (3.5-5.0) g/dL Lipase 19 (8-78) U/L Coronavirus (PCR) (Negative) Influenza Type A (PCR) (Negative) Influenza Type B (PCR) (Negative) RSV RNA Qual (PCR) (Negative) <Juan Ramon Vickers MD - Last Filed: 02/06/20 19:59> Imaging Data Chest x-ray: Attestation: I personally reviewed and interpreted this imaging study as follows: <Alexandra Martinez NP - Last Filed: 01/19/20 12:08> Radiologist's impression: EXAMINATION: XR CHEST CLINICAL INFORMATION: Shortness of breath, cough COMPARISON: Chest radiographs 12/25/2019, 11/17/2019, 11/11/2019 TECHNIQUE: Portable upright AP view of the chest was obtained. FINDINGS: The lungs are clear. There is no airspace consolidation or groundglass opacity or effusion. Subsegmental atelectasis left lateral base noted on prior study is resolved. The heart is normal in size. The costophrenic sulci are clear. The hilar and mediastinal contours and bony structures are unremarkable. XR/XR chest 1V IMPRESSION: Unremarkable examination. <Alexandra Martinez NP - Last Filed: 01/19/20 12:08> Discharge Plan Discharge Clinical Impression: Acute viral syndrome, Asthma, Acute epigastric pain <Alexandra Martinez NP - Last Filed: 01/19/20 12:08> Patient Disposition: Home, Self-Care <Alexandra Martinez NP - Last Filed: 01/19/20 12:08> Instructions: Asthma (ED), Viral Syndrome (ED), Abdominal Pain (ED) <Alexandra Martinez NP - Last Filed: 01/19/20 12:08> Additional Instructions: Spink diet Start prednisone today <Alexandra Martinez NP - Last Filed: 01/19/20 12:08> Prescriptions: New prednisone 20 mg tablet 40 mg PO DAILY Qty: 10 RF: 0 No Action Saccharomyces boulardii [Florastor] 250 mg capsule 250 mg PO BID Qty: 50 RF: 5 glucose [Dex4 Glucose] 4 gram tablet,chewable 16 g PO Q15M PRN (Reason: hypoglycemia) 30 Days Qty: 30 RF: 5 plecanatide [Trulance] 3 mg tablet 3 mg PO DAILY 30 Days Qty: 30 RF: 5 tiotropium bromide 18 mcg capsule, w/inhalation device 1 cap inhalation DAILY 30 Days Qty: 30 RF: 6 rosuvastatin 40 mg tablet 40 mg PO DAILY 30 Days Qty: 30 RF: 5 hydrocodone-homatropine 5-1.5 mg/5 mL (5 mL) syrup 5 ml PO Q6H PRN (Reason: cough) Qty: 60 RF: 0 codeine-guaifenesin 10-100 mg/5 mL liquid 10 ml PO Q6H PRNRF: 0 fluticasone propion-salmeterol 250-50 mcg/dose blister with device inhalation RF: 0 metformin 500 mg tablet extended release 24 hr 500 mg PO BID 30 Days Qty: 60 RF: 6 levothyroxine 75 mcg tablet 75 mcg PO QAM 90 Days Qty: 90 RF: 2 bisacodyl [Dulcolax (bisacodyl)] 5 mg tablet,delayed release (DR/EC) See Rx Instructions PO BEDTIME 30 Days Qty: 90 RF: 3 meclizine 25 mg tablet PO RF: 0 Xolair 150 mg/mL syringe subcut RF: 0 hydrocodone-homatropine 5-1.5 mg/5 mL syrup 5 ml PO Q6H PRN (Reason: cough) RF: 0 glucose 4 gram tablet,chewable 16 g PO RF: 0 tramadol 50 mg tablet 50 mg PO Q12H PRN (Reason: pain) RF: 0 ipratropium-albuterol 0.5 mg-3 mg(2.5 mg base)/3 mL solution for nebulization inhalation Q6H PRNRF: 0 alcohol swabs Pads, Medicated topical DAILY RF: 0 acetaminophen 325 mg tablet 0 mg PO RF: 0 zolpidem 10 mg tablet 10 mg PO BEDTIME PRNRF: 0 clonazepam 1 mg tablet 3 mg PO Q OTHER DAY PRNRF: 0 buspirone 5 mg tablet 5 mg PO BID RF: 0 fluticasone propionate 50 mcg/actuation spray,suspension 1 spray intranasal BID RF: 0 montelukast 10 mg tablet 10 mg PO DAILY RF: 0 Cerovite Advanced Formula 18-400 mg-mcg tablet 1 tab PO QAM RF: 0 cholecalciferol (vitamin D3) 50 mcg (2,000 unit) capsule 50 mcg PO QAM RF: 0 risperidone 0.5 mg tablet 0.5 mg PO BID RF: 0 albuterol sulfate 90 mcg/actuation HFA aerosol inhaler 2 puff PO QID RF: 0 docusate sodium 100 mg capsule 100 mg PO BID RF: 0 amlodipine 10 mg tablet 10 mg PO BEDTIME RF: 0 gabapentin 400 mg capsule 400 mg PO RF: 0 enalapril maleate 10 mg tablet 10 mg PO QAM RF: 0 cyclobenzaprine 10 mg tablet 10 mg PO DAILY PRNRF: 0 Combivent Respimat 20-100 mcg/actuation mist 1 puff PO QID RF: 0 (DME) lancets 33 gauge misc See Rx Instructions ea Not Applicable DAILY Qty: 100 RF: 0 Flovent HFA 220 mcg/actuation HFA aerosol inhaler 1 puff PO BID RF: 0 (DME) FreeStyle Lite Strips Strip See Rx Instructions ea Not Applicable DAILY Qty: 10 RF: 0 calcium carbonate-vitamin D3 600 mg(1,500mg) -400 unit tablet 1 tab PO BID RF: 0 potassium chloride 20 mEq tablet,ER particles/crystals 20 meq PO BID RF: 0 cetirizine 10 mg tablet 10 mg PO BEDTIME RF: 0 (DME) blood-glucose meter Kit See Rx Instructions ea .ROUTE DAILY Qty: 1 RF: 0 omeprazole 20 mg capsule,delayed release(DR/EC) 20 mg PO BID RF: 0 <Alexandra Martinez NP - Last Filed: 01/19/20 12:08> Referrals: Physician,Unknown [Primary Care Provider] - 2 days <Alexandra Martinez NP - Last Filed: 01/19/20 12:08> Interventions: ED Discharge Assessment Last Done: 01/19/20 11:44 <Alexandra Martinez NP - Last Filed: 01/19/20 12:08> Discharge Date/Time: 01/19/20 11:35 <Alexandra Martinez NP - Last Filed: 01/19/20 12:08> Print Language: Eritrean <Alexandra Martinez NP - Last Filed: 01/19/20 12:08>
[2020-01-19] MEDS: Albuterol/Iprat 2.5/0.5MG 3 ML AMPUL.NEB INHALE (09:50)
[2020-01-19 10:00] VITALS: BP 141/97; PULSE 98; RESP 16; TEMP 36.8; O2SAT 96
[2020-01-19 10:09] LABS: MANUAL DIFF FLAG NO
[2020-01-19 10:12] LABS: Basophils Percent Auto 0.5 % (0-2); Eosinophils Absolute Auto 0.1 X10*3/uL (0.0-0.4); Eosinophils Percent Auto 2.1 % (0-4); Hematocrit 42.9 % (37-47); Hemoglobin 14.1 g/dl (12.0-16.0); Imm Gran Abs Auto 0.01 X10*3/uL (0.00-0.03); Imm Gran Pct Auto 0.2 % (0.0-0.4); Lymphocytes Percent Auto 47.6 % (20-40); Mean Corpuscular HGB Conc 32.9 g/dl (31.0-35.0); Mean Corpuscular Hemoglobin 30.7 pg (27.0-33.0); Mean Corpuscular Volume 93.5 fL (80-98); Mean Platelet Volume 9.7 fL (9.4-12.3); Monocytes Absolute Auto 0.4 X10*3/uL (0.1-1.2); Monocytes Percent Auto 6.2 % (2-11); Neutrophils Absolute Auto 2.7 X10*3/uL (2.0-8.3); Neutrophils Percent Auto 43.4 % (45-73); Platelet Count 289 X10*3/uL (160-400); Red Blood Count 4.59 X10*6/uL (4.20-5.50); Red Cell Distribution Width 13.9 % (11.0-16.0); White Blood Count 6.3 X10*3/uL (4.8-10.8)
[2020-01-19] MEDS: Magnesium Hydrox/Alum Hydrox 30 ML ORAL.SUSP PO (10:18)
[2020-01-19] MEDS: Lidocaine HCl Viscous 2 % 15 ML SOLUTION MUCOUS MEM (10:18)
[2020-01-19 10:40] LABS: Alanine Aminotransferase 15 U/L (0-31); Albumin Level 4.1 g/dL (3.5-5.0); Alkaline Phosphatase 80 U/L (39-117); Anion Gap 13 (12-20); Aspartate Amino Transferase 20 U/L (5-31); Bilirubin Direct < 0.2 mg/dL (0.0-0.5); Bilirubin Total 0.4 mg/dL (0.0-1.0); Blood Urea Nitrogen 14 mg/dL (9-16); Calcium 9.4 mg/dL (8.4-10.2); Carbon Dioxide 25 mmol/L (22-29); Chloride 108 mmol/L (96-108); Creatinine Clr Calc Pharmacy 77.2; Estimated Glomerular Filt Rate > 60; Glucose Random 134 mg/dL (60-115); Lipase 19 U/L (8-78); Magnesium 2.2 mg/dL (1.6-2.6); Potassium 4.1 mmol/l (3.3-5.1); Sodium 142 mmol/L (135-145); Total Protein 6.9 g/dL (6.5-8.0)
[2020-01-19 10:50] LABS: Influenza A PCR NEGATIVE (Negative); Influenza B PCR NEGATIVE (Negative); Resp Syncy Virus RNA Qual PCR NEGATIVE (Negative); SARS COV2 PCR INHOUSE NEGATIVE (Negative)
[2020-01-19 11:04] VITALS: BP 131/90; PULSE 76; RESP 16; TEMP 36.4; O2SAT 98
[2020-01-19 11:14] VITALS: O2SAT 98
== END 2020-01-19 11:35 | disposition home or self-care (01) ==
PROVIDERS: Nurse Practitioner Family; Emergency Provider Emergency Medicine
DX: B34.9 Viral infection, unspecified (principal); J45.909 Unspecified asthma, uncomplicated; R10.13 Epigastric pain; M79.10 Myalgia, unspecified site; R05 Cough; Z20.828 Contact with and (suspected) exposure to other viral communicable diseases; F17.200 Nicotine dependence, unspecified, uncomplicated; Z71.6 Tobacco abuse counseling
CPT/HCPCS: 0241U; 36415; 71045; 80048; 80076; 83690; 83735; 85025; 94640; 99284; 99285

== ENCOUNTER 2020-01-21 09:45 | Outpatient (REF) | payer OTHER, SELFPAY | END 2020-01-21 09:46 | disposition home or self-care (01) | LOC: HO.MDS 09:45 | PROVIDERS: Visit Provider Internal Medicine Pulmonary Disease | DX: J45.909 Unspecified asthma, uncomplicated (principal) | CPT/HCPCS: 96372; J2357 ==

== ENCOUNTER 2020-01-27 08:32 | Outpatient (REF) | payer OTHER, SELFPAY | END 2020-01-27 08:33 | disposition home or self-care (01) | LOC: HO.LAB 08:32 | PROVIDERS: PCP Nurse Practitioner Primary Care; Referring Provider Nurse Practitioner Primary Care; Visit Provider Nurse Practitioner | DX: E11.65 Type 2 diabetes mellitus with hyperglycemia (principal); K59.04 Chronic idiopathic constipation; K75.81 Nonalcoholic steatohepatitis (NASH); K21.9 Gastro-esophageal reflux disease without esophagitis | CPT/HCPCS: Q3014 ==

== ENCOUNTER 2020-01-28 09:20 | Outpatient (REF) | payer OTHER, SELFPAY | END 2020-01-28 09:21 | disposition home or self-care (01) | LOC: HO.LAB 09:20 | PROVIDERS: PCP Internal Medicine Geriatric Medicine; Visit Provider Nurse Practitioner | DX: J45.50 Severe persistent asthma, uncomplicated (principal); R68.2 Dry mouth, unspecified; Z91.09 Other allergy status, other than to drugs and biological substances | CPT/HCPCS: 82105; 99212 ==

== ENCOUNTER 2020-02-04 09:45 | Outpatient (REF) | payer OTHER, SELFPAY | END 2020-02-04 09:46 | disposition home or self-care (01) | LOC: HO.MDS 09:45 | PROVIDERS: Visit Provider Internal Medicine Pulmonary Disease | DX: J45.50 Severe persistent asthma, uncomplicated (principal) | CPT/HCPCS: 96372; J2357 ==

== ENCOUNTER 2020-02-04 10:16 | Emergency (ER) | payer OTHER, SELFPAY ==
[2020-02-04 10:39] VITALS: BP 126/86; PULSE 88; RESP 18; TEMP 36.7; O2SAT 95; BMI 35.5
--- NOTE | 2020-02-04 11:21 | ED_ITS ---
HPI - Fever General Chief Complaint: Fever Stated Complaint: body aches,temp Time Seen by Provider: 02/04/20 10:41 Source: patient Mode of arrival: ambulatory Limitations: no limitations and language barrier (player development manager used to obtain history) History of Present Illness HPI Narrative: 59-year-old female who was referred to the emergency department from the outpatient clinic for evaluation of fever of 99.4, body aches cough and shortness of breath. Patient states she was at the clinic to receive an injection for her asthma and was noted to have a temperature of 99.5?. Given her symptoms, she was referred to the emergency department for further evaluation. Patient states she has been feeling sick for approximately 2-3 days. She states that she has had total body aches. She has had fatigue. She states she has felt hot and cold at home but did not take her temperature. She has had intermittent chest pain which is worse with breathing. She states that she has had some mild shortness of breath and mild dyspnea on exertion. She does have asthma and she states she has been using her inhaler and her nebulizer over the past several days with improvement of her shortness of breath. She denied nausea, vomiting or diarrhea. She does not know of any known COVID-19 exposures. Currently in the emergency department she states that she is feeling fine and has no complaints. Related Data Home Medications Medication Instructions Recorded Confirmed acetaminophen 325 mg tablet 0 mg PO 11/20/19 01/11/20 albuterol sulfate 90 mcg/actuation 2 puff PO QID 11/20/19 01/11/20 aerosol inhaler alcohol swabs pad TOPICAL DAILY 11/20/19 01/11/20 amlodipine 10 mg tablet 10 mg PO BEDTIME 11/20/19 01/11/20 blood sugar diagnostic #10 ea 11/20/19 01/11/20 blood-glucose meter #1 ea 11/20/19 01/11/20 buspirone 5 mg tablet 5 mg PO BID 11/20/19 01/11/20 calcium carbonate 600 mg (1,500 1 tab PO BID 11/20/19 01/11/20 mg)-vitamin D3 400 unit tablet cetirizine 10 mg tablet 10 mg PO BEDTIME 11/20/19 01/11/20 cholecalciferol (vitamin D3) 50 50 mcg PO QAM 11/20/19 01/11/20 mcg (2,000 unit) capsule clonazepam 1 mg tablet 3 mg PO Q OTHER DAY PRN 11/20/19 01/11/20 cyclobenzaprine 10 mg tablet 10 mg PO DAILY PRN 11/20/19 01/11/20 docusate sodium 100 mg capsule 100 mg PO BID 11/20/19 01/11/20 enalapril maleate 10 mg tablet 10 mg PO QAM 11/20/19 01/11/20 fluticasone propionate 220 1 puff PO BID 11/20/19 01/11/20 mcg/actuation HFA aerosol inhaler fluticasone propionate 50 1 spray INTRANASAL BID 11/20/19 01/11/20 mcg/actuation nasal spray,suspension gabapentin 400 mg capsule 400 mg PO 11/20/19 01/11/20 glucose 4 gram chewable tablet 16 g PO 11/20/19 01/11/20 hydrocodone-homatropine 5 mg-1.5 5 ml PO Q6H PRN 11/20/19 01/11/20 mg/5 mL oral syrup ipratropium 0.5 mg-albuterol 3 mg ml INHALATION Q6H PRN 11/20/19 01/11/20 (2.5 mg base)/3 mL nebulization soln ipratropium 20 mcg-albuterol 100 1 puff PO QID 11/20/19 01/11/20 mcg/actuation mist for inhalation lancets 33 gauge #100 ea 11/20/19 01/11/20 meclizine 25 mg tablet mg PO 11/20/19 01/11/20 montelukast 10 mg tablet 10 mg PO DAILY 11/20/19 01/11/20 multivitamin-ferrous 1 tab PO QAM 11/20/19 01/11/20 fumarate-folic acid 18 mg-400 mcg tablet omalizumab 150 mg/mL subcutaneous mg SUBCUT 11/20/19 01/11/20 syringe potassium chloride 20 mEq 20 meq PO BID 11/20/19 01/11/20 tablet,extended release(part/cryst) risperidone 0.5 mg tablet 0.5 mg PO BID 11/20/19 01/11/20 tramadol 50 mg tablet 50 mg PO Q12H PRN 11/20/19 01/11/20 zolpidem 10 mg tablet 10 mg PO BEDTIME PRN 11/20/19 01/11/20 omeprazole 20 mg capsule,delayed 20 mg PO BID 11/23/19 01/11/20 release codeine 10 mg-guaifenesin 100 mg/5 10 ml PO Q6H PRN 01/11/20 01/11/20 mL oral liquid fluticasone 250 mcg-salmeterol 50 ea INHALATION 01/11/20 01/11/20 mcg/dose blistr powdr for inhalation Previous Rx's Medication Instructions Recorded Saccharomyces boulardii 250 mg 250 mg PO BID #50 ea 11/24/19 capsule glucose 4 gram chewable tablet 16 g PO Q15M PRN 30 Days #30 tab 12/03/19 plecanatide 3 mg tablet 3 mg PO DAILY 30 Days #30 tab 12/23/19 hydrocodone-homatropine 5 ml PO Q6H PRN #60 ml 12/25/19 tiotropium bromide 18 mcg capsule 1 cap INHALATION DAILY 30 Days #30 12/31/19 with inhalation device inh levothyroxine 75 mcg tablet 75 mcg PO QAM 90 Days #90 tab 01/11/20 metformin 500 mg tablet,extended 500 mg PO BID 30 Days #60 tab 01/11/20 release 24 hr prednisone 40 mg PO DAILY #10 tab 01/19/20 bisacodyl 5 mg tablet,delayed See Rx Instructions PO BEDTIME 30 01/27/20 release Days #90 tab rosuvastatin 40 mg tablet 40 mg PO DAILY 30 Days #30 tab 01/27/20 Allergies Allergy/AdvReac Type Severity Reaction Status Date / Time aspirin [Aspirin] Allergy Mild ITCHY Verified 01/28/20 09:46 THROAT azithromycin Allergy Unknown Unknown Verified 01/28/20 09:46 naproxen Allergy Unknown Unknown Verified 01/28/20 09:46 simvastatin Allergy Unknown Unknown Verified 01/28/20 09:46 onion [ONION] AdvReac Mild RED FACE Verified 01/28/20 09:46 Review of Systems Review of Systems: Yes all other systems are reviewed and are negative Constitutional: Constitutional: Reports as per HPI Eyes: Eyes: Reports as per HPI ENT: Reports as per HPI Cardiovascular: Cardiovascular: Reports as per HPI Respiratory: Respiratory: Reports as per HPI Gastrointestinal: Gastrointestinal: Reports as per HPI Genitourinary: Genitourinary: Reports as per HPI Musculoskeletal: Musculoskeletal: Reports as per HPI Integumentary/Breasts: Skin/Breast: Reports as per HPI Neurologic: Reports as per HPI and Reports Abnormal speech present Psychiatric: Psychiatric: Reports as per HPI Allergic/Immunologic: Allergic/Immunologic: Reports as per HPI [facility] Past Medical History Attestation statement: The following information was validated with the patient. [facility] Narrative: The patient states that she is a former smoker and quit 8 years prior, she denies current tobacco use, she denies alcohol and drug use. Medical History Cocaine abuse DVT (deep venous thrombosis) Hypothyroidism Menometrorrhagia Non-toxic multinodular goiter Surgical History H/O colonoscopy with polypectomy History of esophagogastroduodenoscopy (EGD) History of hysterectomy History of lithotripsy History of selective injection of anesthetic agent around lumbar nerve root Hx of right breast biopsy Family History Family History Father No problems noted. Mother Myocardial infarction CVA (cerebral vascular accident) Social History Social History (Updated 01/27/20 @ 08:36 by LIZET Cox) Household Members: None Alcohol intake: current Alcohol intake frequency: does not drink Smoking Status: Former smoker Smoked in Last 30 Days: No Use of substances other than those prescribed or required for medical reasons: No Advance Directives: No Advance Directives Information Provided: Yes Current occupational status: disabled Physical Exam Vital Signs: Vital Signs: Last Vital Signs Temp 98.1 F 02/04/20 10:39 Pulse 88 02/04/20 10:39 Resp 18 02/04/20 10:39 BP 126/86 02/04/20 10:39 Pulse Ox 95 02/04/20 10:39 Body Mass Index 35.5 Const: General: cooperative and healthy appearing Nutritional Appearance: average body habitus Orientation/consciousness: oriented to person and oriented to place Limitations: no limitations HENMT: Head: Yes normal to inspection, Yes normocephalic and Yes atraumatic Ears: external ears normal General nose exam: Normal external nose present Face and sinus: Yes normal facial exam Mouth: Normal oral and palatal mucosa present Throat: Yes posterior oropharynx normal Eyes: General: appearance normal, both eyes and all related structures Alignment and Position: alignment normal Periorbital: periorbital findings normal Eyelids: Yes eyelids normal Conjunctivae: conjunctivae normal Sclerae: sclerae normal Pupils: Equal, round and reactive pupils present Direct Ophthalmoscopy: normal light reflex Neck: Neck: Yes normal visual inspection and Yes supple Thyroid: Thyroid normal Chest: Chest palpation & inspection: normal inspection of the chest and tenderness (Diffuse anterior wall tenderness) Resp: Effort & Inspection: normal respiratory effort and able to speak in complete sentences Auscultation: clear to auscultation bilaterally, no crackles, no rales and no rhonchi Cardio: Rate: regular rate Rhythm: regular rhythm Heart sounds: S1 normal heart sound present, S2 normal heart sound present and no murmurs GI: Inspection: Yes normal to inspection Palpation (GI): Soft to palpation, nontender and no guarding Auscultation: normal bowel sounds : General: Yes no CVA tenderness Back/Spine/Pelvis: Back: no CVA tenderness Cervical Spine: normal cervical lordosis Thoracic/Lumbar Spine: thoracic and lumbar spine normal to inspection Skin: General skin exam: no rashes or lesions noted Lesions: no lesions Rashes: no rashes Trauma: no lacerations or abrasions Neuro: General: oriented to person and oriented to place Cranial nerves: Yes CN's II-XII intact bilaterally and Yes Equal, round and reactive pupils present Cognition (Neuro): normal cognition Speech: Abnormal speech present Motor exam (neuro): 5/5 motor strength present throughout Extrem: General: Yes normal to inspection and Yes full ROM Psych: Appearance: grossly normal and well kempt Mental Status: mental status grossly normal Speech and movement: Normal speech and movement present Affect: normal affect Attitude: cooperative Thought process: Normal thought process present Thought content: Normal thought content present Insight: Good insight present (Psych) Judgement: Good judgement present (Psych) Course Course Course Narrative: 59-year-old female with history of asthma who presents emergency department for evaluation of viral-like symptoms and low-grade fever of 99.5. Patient's vital signs here in the emergency department release was afebrile, O2 saturation was 95% on room air suggest that she does not have significant hypoxia. Lung exam was normal. The patient most likely has a viral syndrome and I did discuss this with her. The patient will be tested for COVID- 19 and influenza. The patient was discharged home and advised to isolate until she knows her results. She was also advised to take Tylenol for fever and to continue using her asthma medications as prescribed by her doctor. Please advise follow up with the doctor in 2 days and return to the emergency department if she develops symptoms that are concerning to her. Discharge Plan Discharge Clinical Impression: Viral URI Patient Disposition: Home, Self-Care Instructions: Viral Syndrome (ED) Additional Instructions: Rest at home. Take Tylenol 500 mg pills, 2 pills every 4-6 hours as needed for pain or fever. Continue to take your asthma medications as prescribed by your doctors. I will contact you with your COVID-19 and your influenza results. Until you know your COVID-19 result, stay home and isolate yourself. Follow-up with doctor in 2 days. Please return to the emergency department if her symptoms get worse or if you develop any new symptoms that are concerning to you. Prescriptions: No Action Saccharomyces boulardii [Florastor] 250 mg capsule 250 mg PO BID Qty: 50 RF: 5 glucose [Dex4 Glucose] 4 gram tablet,chewable 16 g PO Q15M PRN (Reason: hypoglycemia) 30 Days Qty: 30 RF: 5 plecanatide [Trulance] 3 mg tablet 3 mg PO DAILY 30 Days Qty: 30 RF: 5 tiotropium bromide 18 mcg capsule, w/inhalation device 1 cap inhalation DAILY 30 Days Qty: 30 RF: 6 rosuvastatin 40 mg tablet 40 mg PO DAILY 30 Days Qty: 30 RF: 5 hydrocodone-homatropine 5-1.5 mg/5 mL (5 mL) syrup 5 ml PO Q6H PRN (Reason: cough) Qty: 60 RF: 0 prednisone 20 mg tablet 40 mg PO DAILY Qty: 10 RF: 0 codeine-guaifenesin 10-100 mg/5 mL liquid 10 ml PO Q6H PRNRF: 0 fluticasone propion-salmeterol 250-50 mcg/dose blister with device inhalation RF: 0 metformin 500 mg tablet extended release 24 hr 500 mg PO BID 30 Days Qty: 60 RF: 6 levothyroxine 75 mcg tablet 75 mcg PO QAM 90 Days Qty: 90 RF: 2 bisacodyl [Dulcolax (bisacodyl)] 5 mg tablet,delayed release (DR/EC) See Rx Instructions PO BEDTIME 30 Days Qty: 90 RF: 3 meclizine 25 mg tablet PO RF: 0 Xolair 150 mg/mL syringe subcut RF: 0 hydrocodone-homatropine 5-1.5 mg/5 mL syrup 5 ml PO Q6H PRN (Reason: cough) RF: 0 glucose 4 gram tablet,chewable 16 g PO RF: 0 tramadol 50 mg tablet 50 mg PO Q12H PRN (Reason: pain) RF: 0 ipratropium-albuterol 0.5 mg-3 mg(2.5 mg base)/3 mL solution for nebulization inhalation Q6H PRNRF: 0 alcohol swabs Pads, Medicated topical DAILY RF: 0 acetaminophen 325 mg tablet 0 mg PO RF: 0 zolpidem 10 mg tablet 10 mg PO BEDTIME PRNRF: 0 clonazepam 1 mg tablet 3 mg PO Q OTHER DAY PRNRF: 0 buspirone 5 mg tablet 5 mg PO BID RF: 0 fluticasone propionate 50 mcg/actuation spray,suspension 1 spray intranasal BID RF: 0 montelukast 10 mg tablet 10 mg PO DAILY RF: 0 Cerovite Advanced Formula 18-400 mg-mcg tablet 1 tab PO QAM RF: 0 cholecalciferol (vitamin D3) 50 mcg (2,000 unit) capsule 50 mcg PO QAM RF: 0 risperidone 0.5 mg tablet 0.5 mg PO BID RF: 0 albuterol sulfate 90 mcg/actuation HFA aerosol inhaler 2 puff PO QID RF: 0 docusate sodium 100 mg capsule 100 mg PO BID RF: 0 amlodipine 10 mg tablet 10 mg PO BEDTIME RF: 0 gabapentin 400 mg capsule 400 mg PO RF: 0 enalapril maleate 10 mg tablet 10 mg PO QAM RF: 0 cyclobenzaprine 10 mg tablet 10 mg PO DAILY PRNRF: 0 Combivent Respimat 20-100 mcg/actuation mist 1 puff PO QID RF: 0 (DME) lancets 33 gauge misc See Rx Instructions ea Not Applicable DAILY Qty: 100 RF: 0 Flovent HFA 220 mcg/actuation HFA aerosol inhaler 1 puff PO BID RF: 0 (DME) FreeStyle Lite Strips Strip See Rx Instructions ea Not Applicable DAILY Qty: 10 RF: 0 calcium carbonate-vitamin D3 600 mg(1,500mg) -400 unit tablet 1 tab PO BID RF: 0 potassium chloride 20 mEq tablet,ER particles/crystals 20 meq PO BID RF: 0 cetirizine 10 mg tablet 10 mg PO BEDTIME RF: 0 (DME) blood-glucose meter Kit See Rx Instructions ea .ROUTE DAILY Qty: 1 RF: 0 omeprazole 20 mg capsule,delayed release(DR/EC) 20 mg PO BID RF: 0
[2020-02-04 12:29] LABS: Influenza A PCR NEGATIVE (Negative); Influenza B PCR NEGATIVE (Negative); Resp Syncy Virus RNA Qual PCR NEGATIVE (Negative); SARS COV2 PCR INHOUSE NEGATIVE (Negative)
== END 2020-02-04 11:31 | disposition home or self-care (01) ==
PROVIDERS: Emergency Provider Emergency Medicine Emergency Medical Services
DX: J06.9 Acute upper respiratory infection, unspecified (principal); Z20.828 Contact with and (suspected) exposure to other viral communicable diseases; J45.909 Unspecified asthma, uncomplicated; F14.10 Cocaine abuse, uncomplicated; Z86.718 Personal history of other venous thrombosis and embolism; Z79.899 Other long term (current) drug therapy
CPT/HCPCS: 0241U; 99283; 99284

== ENCOUNTER 2020-02-15 10:52 | Outpatient (REF) | payer OTHER, SELFPAY | END 2020-02-15 10:53 | disposition home or self-care (01) | LOC: HO.LAB 10:52 | PROVIDERS: Visit Provider Internal Medicine | DX: Z20.828 Contact with and (suspected) exposure to other viral communicable diseases (principal) | CPT/HCPCS: C9803; U0003 ==

== ENCOUNTER 2020-02-21 08:05 | Outpatient (REF) | payer OTHER, SELFPAY ==
--- NOTE | 2020-02-21 08:08 | US_ITS ---
EXAMINATION: US ABDOMEN LIMITED CLINICAL INFORMATION: OKEEFE (nonalcoholic steatosis). COMPARISON: Ultrasound abdomen 07/28/2019 TECHNIQUE: Real-time imaging of the right upper quadrant abdominal viscera. FINDINGS: PANCREAS: The head and the body of the pancreas are homogeneous in echotexture. The tail is obscured by overlying gas. LIVER: The liver is normal in size and contour with increased echogenicity. No focal hepatic lesion. There is no intrahepatic biliary duct dilatation seen. GALLBLADDER: Gallbladder wall thickness measures 0.2 cm. The gallbladder is physiologically distended without evidence of stones, sludge, polyps, wall thickening or pericholecystic fluid. COMMON BILE DUCT: Normal in caliber measuring 0.7 cm in diameter. RIGHT KIDNEY: There is an anechoic cyst in the upper pole measuring 1.1 x 1.0 x 1.2 cm. No hydronephrosis or renal calculi. The kidney measures 11.4 cm in maximum dimension. FREE FLUID: None. US/US abdomen limited IMPRESSION: Diffusely echogenic liver without focal lesion. No change from 07/28/2019 ultrasound. Anechoic cyst upper pole right kidney. New since previous ultrasound exam Unremarkable gallbladder, pancreas and CBD.
== END 2020-02-21 08:06 | disposition home or self-care (01) ==
LOC: HO.US 08:05
PROVIDERS: Visit Provider Nurse Practitioner
DX: K75.81 Nonalcoholic steatohepatitis (NASH) (principal)
CPT/HCPCS: 76705

== ENCOUNTER 2020-02-21 09:58 | Outpatient (REF) | payer OTHER, SELFPAY | END 2020-02-21 09:59 | disposition home or self-care (01) | LOC: HO.MDS 09:58 | PROVIDERS: Visit Provider Internal Medicine Pulmonary Disease | DX: J45.50 Severe persistent asthma, uncomplicated (principal) | CPT/HCPCS: 96372; J2357 ==

== ENCOUNTER 2020-03-01 09:59 | Emergency (ER) | payer OTHER, SELFPAY ==
[2020-03-01 10:27] VITALS: BP 141/97; PULSE 87; RESP 20; TEMP 37.1; O2SAT 96; BMI 33.2
[2020-03-01 11:53] LABS: Influenza A PCR NEGATIVE (Negative); Influenza B PCR NEGATIVE (Negative); Resp Syncy Virus RNA Qual PCR NEGATIVE (Negative); SARS COV2 PCR INHOUSE NEGATIVE (Negative)
--- NOTE | 2020-03-01 13:00 | ED_ITS ---
HPI - General Adult General Chief complaint: General Medical <Abdi Barahona NP - Last Filed: 03/01/20 13:34> Stated complaint: covid symptoms <Abdi Barahona NP - Last Filed: 03/01/20 13:34> Time Seen by Provider: 03/01/20 10:33 <Abdi Barahona NP - Last Filed: 03/01/20 13:34> Source: patient <Abdi Barahona NP - Last Filed: 03/01/20 13:34> Mode of arrival: ambulatory <Abdi Barahona NP - Last Filed: 03/01/20 13:34> Limitations: no limitations <Abdi Barahona NP - Last Filed: 03/01/20 13:34> History of Present Illness HPI narrative: Body aches, chills, runny nose and congestion for 1 day. <Abdi Barahona NP - Last Filed: 03/01/20 13:34> Onset (ago): day(s) <Abdi Barahona NP - Last Filed: 03/01/20 13:34> Treatments prior to arrival: none <Abdi Barahona NP - Last Filed: 03/01/20 13:34> Related Data Home medications: Home Medications Medication Instructions Recorded Confirmed acetaminophen 325 mg tablet 0 mg PO 11/20/19 03/08/20 albuterol sulfate 90 mcg/actuation 2 puff PO QID 11/20/19 03/08/20 aerosol inhaler alcohol swabs pad TOPICAL DAILY 11/20/19 03/08/20 amlodipine 10 mg tablet 10 mg PO BEDTIME 11/20/19 03/08/20 blood sugar diagnostic #10 ea 11/20/19 03/08/20 blood-glucose meter #1 ea 11/20/19 03/08/20 buspirone 5 mg tablet 5 mg PO BID 11/20/19 03/08/20 calcium carbonate 600 mg (1,500 1 tab PO BID 11/20/19 03/08/20 mg)-vitamin D3 400 unit tablet cetirizine 10 mg tablet 10 mg PO BEDTIME 11/20/19 03/08/20 cyclobenzaprine 10 mg tablet 10 mg PO DAILY PRN 11/20/19 03/08/20 docusate sodium 100 mg capsule 100 mg PO BID 11/20/19 03/08/20 enalapril maleate 10 mg tablet 10 mg PO QAM 11/20/19 03/08/20 fluticasone propionate 220 1 puff PO BID 11/20/19 03/08/20 mcg/actuation HFA aerosol inhaler fluticasone propionate 50 1 spray INTRANASAL BID 11/20/19 03/08/20 mcg/actuation nasal spray,suspension glucose 4 gram chewable tablet 16 g PO 11/20/19 03/08/20 ipratropium 0.5 mg-albuterol 3 mg ml INHALATION Q6H PRN 11/20/19 03/08/20 (2.5 mg base)/3 mL nebulization soln ipratropium 20 mcg-albuterol 100 1 puff PO QID 11/20/19 03/08/20 mcg/actuation mist for inhalation lancets 33 gauge #100 ea 11/20/19 03/08/20 meclizine 25 mg tablet mg PO 11/20/19 03/08/20 montelukast 10 mg tablet 10 mg PO DAILY 11/20/19 03/08/20 multivitamin-ferrous 1 tab PO QAM 11/20/19 03/08/20 fumarate-folic acid 18 mg-400 mcg tablet omalizumab 150 mg/mL subcutaneous mg SUBCUT 11/20/19 03/08/20 syringe potassium chloride 20 mEq 20 meq PO BID 11/20/19 03/08/20 tablet,extended release(part/cryst) risperidone 0.5 mg tablet 0.5 mg PO BID 11/20/19 03/08/20 tramadol 50 mg tablet 50 mg PO Q12H PRN 11/20/19 03/08/20 zolpidem 10 mg tablet 10 mg PO BEDTIME PRN 11/20/19 03/08/20 omeprazole 20 mg capsule,delayed 20 mg PO BID 11/23/19 03/08/20 release fluticasone 250 mcg-salmeterol 50 ea INHALATION 01/11/20 03/08/20 mcg/dose blistr powdr for inhalation clonazepam 1 mg tablet 1 mg PO BEDTIME 03/08/20 03/08/20 levothyroxine 75 mcg capsule 75 mcg PO DAILY 03/08/20 03/08/20 montelukast 10 mg tablet 10 mg PO DAILY 03/08/20 03/08/20 tramadol 50 mg tablet 50 mg PO BID PRN 03/08/20 03/08/20 Previous Rx's Medication Instructions Recorded Saccharomyces boulardii 250 mg 250 mg PO BID #50 ea 11/24/19 capsule glucose 4 gram chewable tablet 16 g PO Q15M PRN 30 Days #30 tab 12/03/19 plecanatide 3 mg tablet 3 mg PO DAILY 30 Days #30 tab 12/23/19 tiotropium bromide 18 mcg capsule 1 cap INHALATION DAILY 30 Days #30 12/31/19 with inhalation device inh metformin 500 mg tablet,extended 500 mg PO BID 30 Days #60 tab 01/11/20 release 24 hr prednisone 40 mg PO DAILY #10 tab 01/19/20 bisacodyl 5 mg tablet,delayed See Rx Instructions PO BEDTIME 30 01/27/20 release Days #90 tab rosuvastatin 40 mg tablet 40 mg PO DAILY 30 Days #30 tab 01/27/20 cholecalciferol (vitamin D3) 50 50 mcg PO QAM #30 cap 02/15/20 mcg (2,000 unit) capsule gabapentin 400 mg capsule 400 mg PO BID #60 cap 02/22/20 prednisone 10 mg tablet 40 mg PO DAILY 5 Days #20 tab 03/01/20 leg brace #2 ea 03/08/20 <Abdi Barahona NP - Last Filed: 03/01/20 13:34> Allergies/adverse reactions: Allergies Allergy/AdvReac Type Severity Reaction Status Date / Time aspirin [Aspirin] Allergy Mild ITCHY Verified 03/08/20 13:03 THROAT azithromycin Allergy Unknown Unknown Verified 03/08/20 13:03 naproxen Allergy Unknown Unknown Verified 03/08/20 13:03 simvastatin Allergy Unknown Unknown Verified 03/08/20 13:03 onion [ONION] AdvReac Mild RED FACE Verified 03/08/20 13:03 <Abdi Barahona NP - Last Filed: 03/01/20 13:34> Review of Systems Review of Systems: Constitutional: No Weight loss, No Fever, No Chills, No Night Sweats, No Fatigue, No Malaise ENT/Mouth: No Hearing loss, No Ear Pain, + Nasal Congestion, No Sinus Pain, No Hoarseness, No sore throat, + Rhinorrhea, No Swallowing Difficulty Eyes: No Eye Pain, No Swelling, No Redness, No Foreign Body, No Discharge, No Vision Changes Cardiovascular: No Chest Pain, No SOB, No Dyspnea on Exertion, No Orthopnea, No Edema, No Palpitations Respiratory: No Cough, No Sputum, No Wheezing, No Smoke Exposure, No Dyspnea Gastrointestinal: No Nausea, No Vomiting, No Diarrhea, No Constipation, No abdominal Pain, No Hematochezia, No Melena Genitourinary: no irregular bleeding, No Dysuria, No Urinary Frequency, No Hematuria, No Urinary Incontinence, No Urgency, No Flank Pain Musculoskeletal: No joint pain, No Myalgias, No Joint Swelling Skin: No Skin Lesions, No rash Neuro: No Weakness, No Numbness, No Paresthesias, No Loss of Consciousness, No Dizziness, No Headache Psych: No Social Issues Heme/Lymph: No Bruising, No Bleeding,No Lymphadenopathy Endocrine: No Polyuria, No Polydipsia, No Temperature Intolerance <Abdi Barahona NP - Last Filed: 03/01/20 13:34> Yes all other systems are reviewed and are negative <Abdi Barahona NP - Last Filed: 03/01/20 13:34> [facility] Past Medical History Medical History: Medical History Cocaine abuse DVT (deep venous thrombosis) Hypothyroidism Low vitamin D level Menometrorrhagia Non-toxic multinodular goiter <Abdi Barahona NP - Last Filed: 03/01/20 13:34> Surgical History: Surgical History H/O colonoscopy with polypectomy History of esophagogastroduodenoscopy (EGD) History of hysterectomy History of lithotripsy History of selective injection of anesthetic agent around lumbar nerve root Hx of right breast biopsy <Abdi Barahona NP - Last Filed: 03/01/20 13:34> Family History Family History: Family History Father No problems noted. Mother Myocardial infarction CVA (cerebral vascular accident) <Abdi Barahona NP - Last Filed: 03/01/20 13:34> Social History Social History: Social History Household Members: None Alcohol intake: current Alcohol intake frequency: does not drink Smoking Status: Former smoker Current occupational status: disabled <Abdi Barahona NP - Last Filed: 03/01/20 13:34> Physical Exam Vital Signs: Vital Signs: Last Vital Signs Temp 98.7 F 03/01/20 10:27 Pulse 87 03/01/20 10:27 Resp 20 03/01/20 10:27 BP 141/97 H 03/01/20 10:27 Pulse Ox 96 03/01/20 10:27 Body Mass Index 33.2 Reviewed <Abdi Barahona NP - Last Filed: 03/01/20 13:34> Vital Signs: Last Vital Signs Temp 98.7 F 03/01/20 10:27 Pulse 87 03/01/20 10:27 Resp 03/01/20 10:27 BP 141/97 H 03/01/20 10:27 Pulse Ox 96 03/01/20 10:27 Body Mass Index 33.2 <Juan Ramon Vickers MD - Last Filed: 03/09/20 23:27> Const: General: cooperative and healthy appearing; No acute distress or intoxicated appearing <Abdi Barahona NP - Last Filed: 03/01/20 13:34> Nutritional Appearance: average body habitus <Abdi Barahona NP - Last Filed: 03/01/20 13:34> Orientation/consciousness: patient oriented x3 <Abdi Barahona NP - Last Filed: 03/01/20 13:34> HENMT: Head: Yes normal to inspection <Abdi Barahona NP - Last Filed: 03/01/20 13:34> Ears: hearing grossly normal bilaterally <Abdi Barahona NP - Last Filed: 03/01/20 13:34> Eyes: General: appearance normal, both eyes and all related structures <Abdi Barahona NP - Last Filed: 03/01/20 13:34> Visual Gonazlez: normal visual gonzalez by confrontation <Abdi Barahona NP - Last Filed: 03/01/20 13:34> Neck: Neck: Yes normal visual inspection, No positive Brudzinski's sign, No positive Kernig's sign and No tender <Abdi Barahona NP - Last Filed: 03/01/20 13:34> Thyroid: Thyroid normal <Abdi Barahona [facility] Last Filed: 03/01/20 13:34> Chest: Chest palpation & inspection: normal inspection of the chest <Abdi Barahona [facility] - Last Filed: 03/01/20 13:34> Resp: Effort & Inspection: normal respiratory effort <Abdi Barahona - Last Filed: 03/01/20 13:34> Cardio: Jugular venous distension: no JVD <Abdi Jun - Last Filed: 03/01/20 13:34> Rate: regular rate <Abdi Jun - Last Filed: 03/01/20 13:34> Rhythm: regular rhythm <[facility] Jun - Last Filed: 03/01/20 13:34> Heart sounds: S1 normal heart sound present and S2 normal heart sound present <[facility] Jun - Last Filed: 03/01/20 13:34> GI: Inspection: Yes normal to inspection <[facility] Jun - Last Filed: 03/01/20 13:34> Palpation (GI): Soft to palpation <Abdi Jun - Last Filed: 03/01/20 13:34> Percussion: Yes normal to percussion <[facility] Jun - Last Filed: 03/01/20 13:34> Auscultation: normal bowel sounds <Abdienrique Barahona - Last Filed: 03/01/20 13:34> : General: Yes no CVA tenderness <Abdi Jun [facility] Last Filed: 03/01/20 13:34> Back/Spine/Pelvis: Back: no CVA tenderness <[facility] Jun - Last Filed: 03/01/20 13:34> Skin: General skin exam: no rashes or lesions noted <[facility] Jun - Last Filed: 03/01/20 13:34> Neuro: General: patient oriented x3 <Abdienrique Barahona - Last Filed: 03/01/20 13:34> Extrem: General: Yes normal to inspection <[facility] Jun [facility] - Last Filed: 03/01/20 13:34> Course Course Course Narrative: A P of 59-year-old female with above history presents with mild rhinorrhea and congestion seeking COVID-19 test. COVID/RSV/fluid done negative though given her symptoms this could be early false negative. She is overall nontoxic appearing. Lung sounds are clear. No chest pain or shortness of breath. Hemodynamically stable. Will go ahead and proceed with self-quarantine out of caution and return if any concerns. Clear return follow-up precautions provided. <Abdi Barahona NP - Last Filed: 03/01/20 13:34> I have reviewed the chart <Juan Ramon Vickers MD - Last Filed: 03/09/20 23:27> Medical Decision Making MDM Narrative Medical decision making narrative: POC 90 this morning prior to coming Differential diagnosis include but not limited to viral URI, nasal pharyngitis, COVID-19, influenza, sinusitis, less likely pneumonia. <Abdi Barahona NP - Last Filed: 03/01/20 13:34> Lab Data Labs: Lab Results 03/01/20 Range/Units Unknown Coronavirus (PCR) NEGATIVE (Negative) Influenza Type A (PCR) NEGATIVE (Negative) Influenza Type B (PCR) NEGATIVE (Negative) RSV RNA Qual (PCR) NEGATIVE (Negative) <Abdi Barahona NP - Last Filed: 03/01/20 13:34> Lab Results 03/01/20 Range/Units Unknown Coronavirus (PCR) NEGATIVE (Negative) Influenza Type A (PCR) NEGATIVE (Negative) Influenza Type B (PCR) NEGATIVE (Negative) RSV RNA Qual (PCR) NEGATIVE (Negative) <Juan Ramon Vickers MD - Last Filed: 03/09/20 23:27> Discharge Plan Discharge Clinical Impression: Acute viral syndrome <Abdi Barahona NP - Last Filed: 03/01/20 13:34> Patient Disposition: Home, Self-Care <Abdi Barahona NP - Last Filed: 03/01/20 13:34> Instructions: Viral Syndrome (ED) <Abdi Barahona NP - Last Filed: 03/01/20 13:34> Additional Instructions: Your COVID test was negative there is a potential that this could be a false negative given with tested you at 2 days of your symptoms Quarantine yourself for 14 days Social distancing Self-isolation Drink plenty of fluids Return if any concerns worsening symptoms Thank you <Abdi Barahona NP - Last Filed: 03/01/20 13:34> Prescriptions: No Action Saccharomyces boulardii [Florastor] 250 mg capsule 250 mg PO BID Qty: 50 RF: 5 glucose [Dex4 Glucose] 4 gram tablet,chewable 16 g PO Q15M PRN (Reason: hypoglycemia) 30 Days Qty: 30 RF: 5 plecanatide [Trulance] 3 mg tablet 3 mg PO DAILY 30 Days Qty: 30 RF: 5 tiotropium bromide 18 mcg capsule, w/inhalation device 1 cap inhalation DAILY 30 Days Qty: 30 RF: 6 rosuvastatin 40 mg tablet 40 mg PO DAILY 30 Days Qty: 30 RF: 5 cholecalciferol (vitamin D3) 50 mcg (2,000 unit) capsule 50 mcg PO QAM Qty: 30 RF: 3 gabapentin 400 mg capsule 400 mg PO BID Qty: 60 RF: 5 prednisone 10 mg tablet 40 mg PO DAILY 5 Days Qty: 20 RF: 0 prednisone 20 mg tablet 40 mg PO DAILY Qty: 10 RF: 0 fluticasone propion-salmeterol 250-50 mcg/dose blister with device inhalation RF: 0 metformin 500 mg tablet extended release 24 hr 500 mg PO BID 30 Days Qty: 60 RF: 6 tramadol 50 mg tablet 50 mg PO BID PRNRF: 0 levothyroxine 75 mcg capsule 75 mcg PO DAILY RF: 0 montelukast 10 mg tablet 10 mg PO DAILY RF: 0 clonazepam [Klonopin] 1 mg tablet 1 mg PO BEDTIME RF: 0 (DME) Knee Support Brace Misc See Rx Instructions .ROUTE .MEDSUPPLY Qty: 2 RF: 0 bisacodyl [Dulcolax (bisacodyl)] 5 mg tablet,delayed release (DR/EC) See Rx Instructions PO BEDTIME 30 Days Qty: 90 RF: 3 meclizine 25 mg tablet PO RF: 0 Xolair 150 mg/mL syringe subcut RF: 0 glucose 4 gram tablet,chewable 16 g PO RF: 0 tramadol 50 mg tablet 50 mg PO Q12H PRN (Reason: pain) RF: 0 ipratropium-albuterol 0.5 mg-3 mg(2.5 mg base)/3 mL solution for nebulization inhalation Q6H PRNRF: 0 alcohol swabs Pads, Medicated topical DAILY RF: 0 acetaminophen 325 mg tablet 0 mg PO RF: 0 zolpidem 10 mg tablet 10 mg PO BEDTIME PRNRF: 0 buspirone 5 mg tablet 5 mg PO BID RF: 0 fluticasone propionate 50 mcg/actuation spray,suspension 1 spray intranasal BID RF: 0 montelukast 10 mg tablet 10 mg PO DAILY RF: 0 Cerovite Advanced Formula 18-400 mg-mcg tablet 1 tab PO QAM RF: 0 risperidone 0.5 mg tablet 0.5 mg PO BID RF: 0 albuterol sulfate 90 mcg/actuation HFA aerosol inhaler 2 puff PO QID RF: 0 docusate sodium 100 mg capsule 100 mg PO BID RF: 0 amlodipine 10 mg tablet 10 mg PO BEDTIME RF: 0 enalapril maleate 10 mg tablet 10 mg PO QAM RF: 0 cyclobenzaprine 10 mg tablet 10 mg PO DAILY PRNRF: 0 Combivent Respimat 20-100 mcg/actuation mist 1 puff PO QID RF: 0 (DME) lancets 33 gauge misc See Rx Instructions ea Not Applicable DAILY Qty: 100 RF: 0 Flovent HFA 220 mcg/actuation HFA aerosol inhaler 1 puff PO BID RF: 0 (DME) FreeStyle Lite Strips Strip See Rx Instructions ea Not Applicable DAILY Qty: 10 RF: 0 calcium carbonate-vitamin D3 600 mg(1,500mg) -400 unit tablet 1 tab PO BID RF: 0 potassium chloride 20 mEq tablet,ER particles/crystals 20 meq PO BID RF: 0 cetirizine 10 mg tablet 10 mg PO BEDTIME RF: 0 (DME) blood-glucose meter Kit See Rx Instructions ea .ROUTE DAILY Qty: 1 RF: 0 omeprazole 20 mg capsule,delayed release(DR/EC) 20 mg PO BID RF: 0 <Abdi Barahona NP - Last Filed: 03/01/20 13:34> Referrals: [facility] [Primary Care Provider] - 1 week (PHONE VISIT ) <Abdi Barahona NP - Last Filed: 03/01/20 13:34> Interventions: ED Discharge Assessment Last Done: 03/01/20 13:36 <Abdi Barahona NP - Last Filed: 03/01/20 13:34> Discharge Date/Time: 03/01/20 13:36 <Abdi Barahona, [facility] - Last Filed: 03/01/20 13:34>
== END 2020-03-01 13:36 | disposition home or self-care (01) ==
PROVIDERS: Physician Assistant Medical; Emergency Provider Emergency Medicine
DX: B34.9 Viral infection, unspecified (principal); Z20.822 Contact with and (suspected) exposure to COVID-19; F14.10 Cocaine abuse, uncomplicated; Z86.718 Personal history of other venous thrombosis and embolism; Z79.899 Other long term (current) drug therapy; Z87.891 Personal history of nicotine dependence
CPT/HCPCS: 0241U; 36415; 99283

== ENCOUNTER 2020-03-06 10:03 | Outpatient (REF) | payer OTHER, SELFPAY | END 2020-03-06 10:04 | disposition home or self-care (01) | LOC: HO.MDS 10:03 | PROVIDERS: Visit Provider Internal Medicine Pulmonary Disease | DX: J45.50 Severe persistent asthma, uncomplicated (principal) | CPT/HCPCS: 96372; J2357 ==

== ENCOUNTER → 2020-03-08 12:54 | Outpatient (BNVA) | payer OTHER, SELFPAY | PROVIDERS: PCP Family Medicine; Referring Provider Nurse Practitioner Primary Care; Visit Provider Student in an Organized Health Care Education/Training Program | DX: M79.7 Fibromyalgia (principal); M25.561 Pain in right knee; M25.562 Pain in left knee; M79.641 Pain in right hand; M79.642 Pain in left hand | CPT/HCPCS: 99212 ==

== ENCOUNTER 2020-03-09 09:43 | Outpatient (REF) | payer OTHER, SELFPAY ==
--- NOTE | 2020-03-09 09:56 | XR_ITS ---
EXAMINATION: XR KNEE, RIGHT XR KNEE, LEFT CLINICAL INFORMATION: Fibromyalgia. COMPARISON: Right and left knee radiographs dated 11/18/2018. TECHNIQUE: AP, tunnel, lateral, and sunrise views of the right and left knee. FINDINGS: Right Knee: No acute fracture or dislocation. No significant joint space narrowing or marginal osteophytes. No osseous erosion. No abnormal soft tissue calcification. No significant joint effusion. Left Knee: Medial compartment joint space narrowing. Tiny medial and patellofemoral compartment marginal osteophytes. No osseous erosion. No fracture or dislocation. No significant joint effusion. Previously seen intercondylar notch loose body partially visualized and unchanged. XR/XR knee LT 3V IMPRESSION: RIGHT KNEE: Unremarkable examination. LEFT KNEE: Mild medial and patellofemoral compartment degenerative arthritis, unchanged. Possible intercondylar notch loose body partially visualized and grossly unchanged.
--- NOTE | 2020-03-09 09:56 | XR_ITS ---
EXAMINATION: XR HAND, RIGHT XR HAND, LEFT CLINICAL INFORMATION: Fibromyalgia. COMPARISON: Right and left hand radiographs dated 11/01/2016 TECHNIQUE: AP, oblique, and lateral views of the right and left hand. FINDINGS: Right hand: No fracture or dislocation. Normal carpal alignment. No significant joint space narrowing or marginal osteophytes. No osseous erosion. No periarticular osteopenia. No abnormal soft tissue calcification. Left hand: No fracture or dislocation. Normal carpal alignment. No significant joint space narrowing or marginal osteophytes. No osseous erosion. No periarticular osteopenia. No abnormal soft tissue calcification. XR/XR hand LT min 3V IMPRESSION: Right hand: Unremarkable examination. Left hand: Unremarkable examination.
--- NOTE | 2020-03-09 09:56 | XR_ITS ---
EXAMINATION: XR KNEE, RIGHT XR KNEE, LEFT CLINICAL INFORMATION: Fibromyalgia. COMPARISON: Right and left knee radiographs dated 11/18/2018. TECHNIQUE: AP, tunnel, lateral, and sunrise views of the right and left knee. FINDINGS: Right Knee: No acute fracture or dislocation. No significant joint space narrowing or marginal osteophytes. No osseous erosion. No abnormal soft tissue calcification. No significant joint effusion. Left Knee: Medial compartment joint space narrowing. Tiny medial and patellofemoral compartment marginal osteophytes. No osseous erosion. No fracture or dislocation. No significant joint effusion. Previously seen intercondylar notch loose body partially visualized and unchanged. XR/XR knee RT 3V IMPRESSION: RIGHT KNEE: Unremarkable examination. LEFT KNEE: Mild medial and patellofemoral compartment degenerative arthritis, unchanged. Possible intercondylar notch loose body partially visualized and grossly unchanged.
--- NOTE | 2020-03-09 09:56 | XR_ITS ---
EXAMINATION: XR HAND, RIGHT XR HAND, LEFT CLINICAL INFORMATION: Fibromyalgia. COMPARISON: Right and left hand radiographs dated 11/01/2016 TECHNIQUE: AP, oblique, and lateral views of the right and left hand. FINDINGS: Right hand: No fracture or dislocation. Normal carpal alignment. No significant joint space narrowing or marginal osteophytes. No osseous erosion. No periarticular osteopenia. No abnormal soft tissue calcification. Left hand: No fracture or dislocation. Normal carpal alignment. No significant joint space narrowing or marginal osteophytes. No osseous erosion. No periarticular osteopenia. No abnormal soft tissue calcification. XR/XR hand RT min 3V IMPRESSION: Right hand: Unremarkable examination. Left hand: Unremarkable examination.
== END 2020-03-09 09:44 | disposition home or self-care (01) ==
LOC: HO.XRAY 09:43
PROVIDERS: PCP Nurse Practitioner Primary Care; Visit Provider Student in an Organized Health Care Education/Training Program
DX: M79.7 Fibromyalgia (principal)
CPT/HCPCS: 73130; 73562

== ENCOUNTER 2020-03-10 08:55 | Outpatient (REF) | payer OTHER, SELFPAY ==
[2020-03-10 09:43] LABS: Cholesterol 245 mg/dL; HDL Cholesterol 67 mg/dL; LDL Cholesterol Calculated 160 mg/dl; Triglycerides 93 mg/dL
== END 2020-03-10 08:56 | disposition home or self-care (01) ==
LOC: HO.LAB 08:55
PROVIDERS: PCP Nurse Practitioner Primary Care; Visit Provider Internal Medicine Endocrinology, Diabetes & Metabolism
DX: E78.00 Pure hypercholesterolemia, unspecified (principal)
CPT/HCPCS: 36415; 80061

== ENCOUNTER 2020-03-16 10:13 | Outpatient (REF) | payer OTHER, SELFPAY | END 2020-03-16 10:14 | disposition home or self-care (01) | LOC: HO.LAB 10:13 | PROVIDERS: Visit Provider Internal Medicine | DX: Z20.822 Contact with and (suspected) exposure to COVID-19 (principal) | CPT/HCPCS: 36415; C9803; U0003 ==

== ENCOUNTER 2020-03-20 09:18 | Outpatient (REF) | payer OTHER, SELFPAY | END 2020-03-20 09:19 | disposition home or self-care (01) | LOC: HO.MDS 09:18 | PROVIDERS: PCP Nurse Practitioner Primary Care; Visit Provider Internal Medicine Pulmonary Disease | DX: J45.50 Severe persistent asthma, uncomplicated (principal) | CPT/HCPCS: 96372; J2357 ==

== ENCOUNTER 2020-03-31 09:39 | Outpatient (RCR) | payer OTHER, SELFPAY ==
--- NOTE | 2020-03-31 11:11 | MHC.PT.EP ---
[facility] [place] [facility] [place] [facility] [place] [facility] [address] [phone] F: [phone] F: [phone] F: [phone] F: [phone] Physical Therapy Plan of Care Date of Evaluation: 03/31/20 Date of Surgery: Diagnosis: BPPV and knee pain. Assessment: The patient arrived reporting dizziness with movement. Pt was negative during Hallpike testing and during bilateral roll tests for nystagmus and reports of vertigo. I did CRM for right side as a precautionary measure because she reported dizziness in this position. She will return for an evaluation for her knees once BPPV is resolved. Frequency and Duration: The patient will be seen 1x/week x 4 weeks. Short Term Goals: Short term goals 1.Pt to be negative for nystagmus in all diagnostic positions for BPPV to facilitate improved functional movements. Detention Goals: 1. For the patient to be negative for nystagmus or reports of vertigo in all diagnostic positions bilaterally to resolution of BPPV in 4 weeks. 2. For the patient to be able to functionally move in all planes and directions without provocation of dizziness to show return to PLOF. 3.For the patient to be educated on symptoms and indications to return to therapy when needed in 4 weeks. Treatment Plan: Modalities to reduce pain, spasms and effusion. Manual therapy to restore motion and function. Therapeutic exercise to improve strength and flexibility. Neuromuscular re-education for posture and balance. Therapeutic activities to return to functional activities of daily living. Electronically signed by: Lanette Burton PT DPT Please sign and return to therapist. Thank you for your referral.
== END 2020-05-22 15:39 | disposition other institution (70) ==
LOC: HO.PT 09:39
PROVIDERS: PCP Nurse Practitioner Primary Care; Visit Provider Nurse Practitioner Primary Care
DX: R42 Dizziness and giddiness (principal)
CPT/HCPCS: 97162

== ENCOUNTER 2020-03-31 10:44 | Outpatient (REF) | payer OTHER, SELFPAY | END 2020-03-31 10:45 | disposition home or self-care (01) | LOC: HO.LAB 10:44 | PROVIDERS: Visit Provider Internal Medicine | DX: Z20.822 Contact with and (suspected) exposure to COVID-19 (principal) | CPT/HCPCS: 36415; C9803; U0003; U0005 ==

== ENCOUNTER 2020-04-07 09:08 | Outpatient (REF) | payer OTHER, SELFPAY | END 2020-04-07 09:09 | disposition home or self-care (01) | LOC: HO.MDS 09:08 | PROVIDERS: Visit Provider Internal Medicine Pulmonary Disease | DX: J45.50 Severe persistent asthma, uncomplicated (principal) | CPT/HCPCS: 96372; J2357 ==

== ENCOUNTER 2020-04-17 09:54 | Outpatient (RCR) | payer OTHER, SELFPAY | END 2020-05-31 07:48 | disposition other institution (70) | LOC: HO.PT 09:54 | PROVIDERS: PCP Student in an Organized Health Care Education/Training Program; Visit Provider Student in an Organized Health Care Education/Training Program | DX: Z13.89 Encounter for screening for other disorder (principal) ==

== ENCOUNTER 2020-04-21 09:03 | Outpatient (REF) | payer OTHER, SELFPAY | END 2020-04-21 09:04 | disposition home or self-care (01) | LOC: HO.MDS 09:03 | PROVIDERS: Visit Provider Internal Medicine Pulmonary Disease | DX: J45.50 Severe persistent asthma, uncomplicated (principal) | CPT/HCPCS: 96372; J2357 ==

== ENCOUNTER → 2020-04-24 12:04 | Outpatient (BNVA) | payer OTHER, SELFPAY | PROVIDERS: PCP Student in an Organized Health Care Education/Training Program; Visit Provider Dietitian, Registered ==

== ENCOUNTER 2020-04-26 10:38 | Emergency (ER) | payer OTHER, SELFPAY ==
--- NOTE | 2020-04-26 | ECG_ITS ---
Test Reason : CHEST PAIN Blood Pressure : / mmHG Vent. Rate : 080 BPM Atrial Rate : 080 BPM P-R Int : 216 ms QRS Dur : 102 ms QT Int : 400 ms P-R-T Axes : 039 -50 029 degrees QTc Int : 461 ms Sinus rhythm with 1st degree A-V block Left anterior fascicular block Abnormal ECG When compared with ECG of 25-DEC-2019 11:45, No significant change was found Referred By: Tomy Glover Electronically Signed By:Agus Denise
--- NOTE | ~2020-04-26 | XR_ITS ---
EXAMINATION: XR CHEST CLINICAL INFORMATION: Chest pain COMPARISON: Chest radiographs 01/19/2020, 12/25/2019 TECHNIQUE: 2 views of the chest were obtained. FINDINGS: There is no pneumothorax, pleural reaction, infiltrate, or effusion. Linear disc atelectasis present left lateral base. The costophrenic sulci are clear. The heart is normal in size. The hilar and mediastinal contours and visualized bony structures are unremarkable. XR/XR chest 2V IMPRESSION: Disc atelectasis left lateral base. No pneumothorax, airspace consolidation, or effusion.
[2020-04-26 11:18] VITALS: BP 126/87; PULSE 78; RESP 16; TEMP 36.8; O2SAT 97; BMI 34.4
[2020-04-26 11:31] VITALS: BP 130/80; PULSE 74; RESP 14; RESP 18; TEMP 36.9; O2SAT 96
--- NOTE | 2020-04-26 11:59 | PC.NURSE ---
Addendum entered by Maia Butts 04/26/20 12:00: WRONG PATIENT - CHARTING. Original Note: JUNIOR FROM [facility] ).
[2020-04-26 12:47] LABS: MANUAL DIFF FLAG NO
[2020-04-26 12:48] LABS: Basophils Percent Auto 0.5 % (0-2); Eosinophils Absolute Auto 0.2 X10*3/uL (0.0-0.4); Eosinophils Percent Auto 2.4 % (0-4); Hemoglobin 14.2 g/dl (12.0-16.0); Imm Gran Abs Auto 0.01 X10*3/uL (0.00-0.03); Imm Gran Pct Auto 0.2 % (0.0-0.4); Lymphocytes Absolute Auto 2.5 X10*3/uL (1.2-4.9); Mean Corpuscular Volume 93.9 fL (80-98); Monocytes Absolute Auto 0.4 X10*3/uL (0.1-1.2); Monocytes Percent Auto 6.6 % (2-11); Neutrophils Absolute Auto 3.2 X10*3/uL (2.0-8.3); Neutrophils Percent Auto 50.3 % (45-73); Platelet Count 292 X10*3/uL (160-400); Red Blood Count 4.58 X10*6/uL (4.20-5.50); Red Cell Distribution Width 13.2 % (11.0-16.0); White Blood Count 6.3 X10*3/uL (4.8-10.8)
[2020-04-26 13:06] LABS: Glucose, Whole Blood 96 mg/dL (60-115)
[2020-04-26 13:22] VITALS: BP 132/78; PULSE 65; RESP 18; O2SAT 98
[2020-04-26 13:25] VITALS: RESP 18
[2020-04-26] MEDS: Morphine Sulfate 4 MG/ML CARTRIDGE IVPUSH (13:25)
[2020-04-26] MEDS: ondansetron HCL 4 MG/2 ML VIAL IVPUSH (13:25)
[2020-04-26 13:53] LABS: Alanine Aminotransferase 18 U/L (0-31); Albumin Level 4.3 g/dL (3.5-5.0); Alkaline Phosphatase 86 U/L (39-117); Anion Gap 13 (12-20); Aspartate Amino Transferase 21 U/L (5-31); Bilirubin Total 0.3 mg/dL (0.0-1.0); Blood Urea Nitrogen 18 mg/dL (9-16); Calcium 9.4 mg/dL (8.4-10.2); Carbon Dioxide 27 mmol/L (22-29); Chloride 107 mmol/L (96-108); Creatinine Clr Calc Pharmacy 78.8; Estimated Glomerular Filt Rate > 60; Glucose Random 106 mg/dL (60-115); Potassium 4.6 mmol/L (3.3-5.1); Sodium 142 mmol/L (135-145); Total Protein 7.1 g/dL (6.5-8.0); Troponin-I High Sensitivity < 3.5 ng/L (<3.5-17.0)
--- NOTE | 2020-04-26 14:02 | ED_ITS ---
HPI - Chest Pain General Chief Complaint: Chest Pain Stated Complaint: chest pain Time Seen by Provider: 04/26/20 11:15 Source: patient Mode of arrival: ambulatory Limitations: language barrier (interpreter for the deaf used to obtain information) History of Present Illness HPI narrative: 59-year-old female who presents emergency department for evaluation right-sided chest pain. The patient states that the chest pain started 4 days prior. The pain came on gradually while she was at home carrying a bag. She describes the pain as a stabbing sensation which is worse with movement and with breathing. The pain is intermittent. The pain lasts 10-15 minutes and she gets the pain several times a day. She states that she has associated dizziness. She denies radiation of the pain tear neck, jaw, arms. She denied associated diaphoresis, nausea, vomiting. She states she has had similar pain in the past. She denied cough, myalgias, arthralgias, loss of sense of taste or smell. Related Data Home Medications Medication Instructions Recorded Confirmed acetaminophen 325 mg tablet 0 mg PO 11/20/19 03/08/20 albuterol sulfate 90 mcg/actuation 2 puff PO QID 11/20/19 03/08/20 aerosol inhaler alcohol swabs pad TOPICAL DAILY 11/20/19 03/08/20 amlodipine 10 mg tablet 10 mg PO BEDTIME 11/20/19 03/08/20 blood sugar diagnostic #10 ea 11/20/19 03/08/20 blood-glucose meter #1 ea 11/20/19 03/08/20 buspirone 5 mg tablet 5 mg PO BID 11/20/19 03/08/20 calcium carbonate 600 mg (1,500 1 tab PO BID 11/20/19 03/08/20 mg)-vitamin D3 400 unit tablet cetirizine 10 mg tablet 10 mg PO BEDTIME 11/20/19 03/08/20 cyclobenzaprine 10 mg tablet 10 mg PO DAILY PRN 11/20/19 03/08/20 docusate sodium 100 mg capsule 100 mg PO BID 11/20/19 03/08/20 enalapril maleate 10 mg tablet 10 mg PO QAM 11/20/19 03/08/20 fluticasone propionate 220 1 puff PO BID 11/20/19 03/08/20 mcg/actuation HFA aerosol inhaler fluticasone propionate 50 1 spray INTRANASAL BID 10/03/20 01/20/21 mcg/actuation nasal spray,suspension glucose 4 gram chewable tablet 16 g PO 11/20/19 03/08/20 ipratropium 0.5 mg-albuterol 3 mg ml INHALATION Q6H PRN 11/20/19 03/08/20 (2.5 mg base)/3 mL nebulization soln ipratropium 20 mcg-albuterol 100 1 puff PO QID 11/20/19 03/08/20 mcg/actuation mist for inhalation lancets 33 gauge #100 ea 11/20/19 03/08/20 meclizine 25 mg tablet mg PO 11/20/19 03/08/20 montelukast 10 mg tablet 10 mg PO DAILY 11/20/19 03/08/20 multivitamin-ferrous 1 tab PO QAM 11/20/19 03/08/20 fumarate-folic acid 18 mg-400 mcg tablet omalizumab 150 mg/mL subcutaneous mg SUBCUT 11/20/19 03/08/20 syringe potassium chloride 20 mEq 20 meq PO BID 11/20/19 03/08/20 tablet,extended release(part/cryst) risperidone 0.5 mg tablet 0.5 mg PO BID 11/20/19 03/08/20 tramadol 50 mg tablet 50 mg PO Q12H PRN 11/20/19 03/08/20 zolpidem 10 mg tablet 10 mg PO BEDTIME PRN 11/20/19 03/08/20 omeprazole 20 mg capsule,delayed 20 mg PO BID 11/23/19 03/08/20 release fluticasone 250 mcg-salmeterol 50 ea INHALATION 01/11/20 03/08/20 mcg/dose blistr powdr for inhalation clonazepam 1 mg tablet 1 mg PO BEDTIME 03/08/20 03/08/20 levothyroxine 75 mcg capsule 75 mcg PO DAILY 03/08/20 03/08/20 montelukast 10 mg tablet 10 mg PO DAILY 03/08/20 03/08/20 tramadol 50 mg tablet 50 mg PO BID PRN 03/08/20 03/08/20 Previous Rx's Medication Instructions Recorded Saccharomyces boulardii 250 mg 250 mg PO BID #50 ea 11/24/19 capsule plecanatide 3 mg tablet 3 mg PO DAILY 30 Days #30 tab 12/23/19 tiotropium bromide 18 mcg capsule 1 cap INHALATION DAILY 30 Days #30 12/31/19 with inhalation device inh metformin 500 mg tablet,extended 500 mg PO BID 30 Days #60 tab 01/11/20 release 24 hr bisacodyl 5 mg tablet,delayed See Rx Instructions PO BEDTIME 30 01/27/20 release Days #90 tab rosuvastatin 40 mg tablet 40 mg PO DAILY 30 Days #30 tab 01/27/20 cholecalciferol (vitamin D3) 50 50 mcg PO QAM #30 cap 02/15/20 mcg (2,000 unit) capsule gabapentin 400 mg capsule 400 mg PO BID #60 cap 02/22/20 leg brace #2 ea 03/08/20 prednisone 10 mg tablet 40 mg PO DAILY 5 Days #20 tab 03/20/20 Culturelle 10 billion cell capsule 1 cap PO DAILY 30 Days #30 cap NS 04/14/20 glucose 4 gram chewable tablet 16 g PO Q15M PRN 30 Days #30 tab 04/20/20 Lactobacillus rhamnosus GG 10 1 cap PO DAILY 30 Days #30 cap 04/26/20 billion cell capsule Allergies Allergy/AdvReac Type Severity Reaction Status Date / Time aspirin [Aspirin] Allergy Mild ITCHY Verified 03/08/20 13:03 THROAT azithromycin Allergy Unknown Unknown Verified 03/08/20 13:03 naproxen Allergy Unknown Unknown Verified 03/08/20 13:03 simvastatin Allergy Unknown Unknown Verified 03/08/20 13:03 onion [ONION] AdvReac Mild RED FACE Verified 03/08/20 13:03 Review of Systems Review of Systems: Yes all other systems are reviewed and are negative [facility] Past Medical History Medical History Cocaine abuse DVT (deep venous thrombosis) Hypothyroidism Low vitamin D level Menometrorrhagia Non-toxic multinodular goiter Surgical History H/O colonoscopy with polypectomy History of esophagogastroduodenoscopy (EGD) History of hysterectomy History of lithotripsy History of selective injection of anesthetic agent around lumbar nerve root Hx of right breast biopsy Family History Family History Father No problems noted. Mother Myocardial infarction CVA (cerebral vascular accident) Social History Social History Household Members: None Alcohol intake: never Smoking Status: Former smoker Smoked in Last 30 Days: No Use of substances other than those prescribed or required for medical reasons: No Advance Directives: Yes Advance Directives Information Provided: Yes Advance Directives on File: No Current occupational status: disabled Physical Exam Vital Signs: Vital Signs: Last Vital Signs Temp 98.4 F 04/26/20 11:31 Pulse 65 04/26/20 13:22 Resp 18 04/26/20 13:25 BP 132/78 04/26/20 13:22 Pulse Ox 98 04/26/20 13:22 Body Mass Index 34.4 Const: General: cooperative and healthy appearing Nutritional Appearance: overweight Orientation/consciousness: oriented to person and oriented to place Limitations: no limitations HENMT: Head: Yes normal to inspection, Yes normocephalic and Yes atraumatic Ears: external ears normal General nose exam: Normal external nose present Face and sinus: Yes normal facial exam Mouth: Normal oral and palatal mucosa present Throat: Yes posterior oropharynx normal Eyes: Periorbital: periorbital findings normal Eyelids: Yes eyelids normal Conjunctivae: conjunctivae normal Sclerae: sclerae normal Corneas: corneas normal Pupils: Equal, round and reactive pupils present Direct Ophthalmoscopy: normal light reflex Neck: Neck: Yes full ROM, Yes no lymphadenopathy, Yes no meningeal signs, Yes trachea midline and Yes supple Chest: Chest palpation & inspection: normal inspection of the chest and tenderness (Right anterior chest) Resp: Effort & Inspection: normal respiratory effort and able to speak in complete sentences Auscultation: clear to auscultation bilaterally Cardio: Rate: regular rate Rhythm: regular rhythm Heart sounds: S1 normal heart sound present, S2 normal heart sound present and no murmurs GI: Inspection: Yes normal to inspection Palpation (GI): Soft to palpation, nontender, no guarding, not rigid and No hepatosplenomegaly present : General: Yes no CVA tenderness Back/Spine/Pelvis: Back: no CVA tenderness Cervical Spine: normal cervical lordosis Thoracic/Lumbar Spine: thoracic and lumbar spine normal to inspection Skin: Lesions: no lesions Rashes: no rashes Wounds: no wounds Neuro: General: oriented to person, oriented to place and no meningeal signs Cranial nerves: Yes CN's II-XII intact bilaterally and Yes Equal, round and reactive pupils present Cognition (Neuro): normal cognition Motor exam (neuro): 5/5 motor strength present throughout Extrem: General: Yes normal to inspection and Yes full ROM Psych: Appearance: well kempt Mental Status: mental status grossly normal Speech and movement: Normal speech and movement present Affect: normal affect Attitude: cooperative Thought process: Normal thought process present Thought content: Normal thought content present Course Course Course Narrative: 59-year-old female who presents emergency department for e valuation of intermittent right-sided chest pain x4 days. The patient's physical examination did reveal right-sided chest wall tenderness. Twelve EKG revealed no evidence of cardiac ischemia or injury. The patient's high sensitivity troponin was undetectable which is reassuring. The patient's other laboratory evaluation was normal. X-ray revealed no evidence of pneumonia. The patient was treated with morphine 4 mg IV with improvement of her pain. The patient was discharged home advised to take Tylenol for her pain. She was given verbal and printed instructions on costochondritis and discharged home. MDM - Chest Pain Lab Data Result diagrams: 04/26/20 12:42 04/26/20 12:42 Labs: Lab Results 04/26/20 04/26/20 04/26/20 Range/Units 12:42 12:42 12:42 WBC 6.3 (4.8-10.8) X10*3/uL RBC 4.58 (4.20-5.50) X10*6/uL Hgb 14.2 (12.0-16.0) g/dl Hct 43.0 (37-47) % MCV 93.9 (80-98) fL MCH 31.0 (27.0-33.0) pg MCHC 33.0 (31.0-35.0) g/dl RDW 13.2 (11.0-16.0) % Plt Count 292 (160-400) X10*3/uL MPV 10.0 (9.4-12.3) fL Immature Gran % (Auto) 0.2 (0.0-0.4) % Neut % (Auto) 50.3 (45-73) % Lymph % (Auto) 40.0 (20-40) % [place] % (Auto) 6.6 (2-11) % Eos % (Auto) 2.4 (0-4) % Baso % (Auto) 0.5 (0-2) % Lymph # (Auto) 2.5 (1.2-4.9) X10*3/uL [place] # (Auto) 0.4 (0.1-1.2) X10*3/uL Eos # (Auto) 0.2 (0.0-0.4) X10*3/uL Baso # (Auto) 0.0 (0.0-0.2) X10*3/uL Abs Immat Gran (auto) 0.01 (0.00-0.03) X10*3/uL Absolute Neuts (auto) 3.2 (2.0-8.3) X10*3/uL Absolute Nucleated RBC 0.000 (0.0-0.012) X10*3/uL Nucleated RBC % (auto) 0.0 (0.0-0.2) /100WBC Sodium 142 (135-145) mmol/L Potassium 4.6 (3.3-5.1) mmol/L Chloride 107 (96-108) mmol/L Carbon Dioxide 27 (22-29) mmol/L Anion Gap 13 (12-20) BUN 18 H (9-16) mg/dL Creatinine 0.87 (0.5-1.4) mg/dL Estim Creat Clear Calc 78.8 Estimated GFR > 60 POC Glucose (60-115) mg/dL Random Glucose 106 (60-115) mg/dL Calcium 9.4 (8.4-10.2) mg/dL Total Bilirubin 0.3 (0.0-1.0) mg/dL AST 21 (5-31) U/L ALT 18 (0-31) U/L Alkaline Phosphatase 86 (39-117) U/L Troponin I High Sens < 3.5 (<3.5-17.0) ng/L Total Protein 7.1 (6.5-8.0) g/dL Albumin 4.3 (3.5-5.0) g/dL 04/26/20 Range/Units 12:57 WBC (4.8-10.8) X10*3/uL RBC (4.20-5.50) X10*6/uL Hgb (12.0-16.0) g/dl Hct (37-47) % MCV (80-98) fL MCH (27.0-33.0) pg MCHC (31.0-35.0) g/dl RDW (11.0-16.0) % Plt Count (160-400) X10*3/uL MPV (9.4-12.3) fL Immature Gran % (Auto) (0.0-0.4) % Neut % (Auto) (45-73) % Lymph % (Auto) (20-40) % [place] % (Auto) (2-11) % Eos % (Auto) (0-4) % Baso % (Auto) (0-2) % Lymph # (Auto) (1.2-4.9) X10*3/uL [place] # (Auto) (0.1-1.2) X10*3/uL Eos # (Auto) (0.0-0.4) X10*3/uL Baso # (Auto) (0.0-0.2) X10*3/uL Abs Immat Gran (auto) (0.00-0.03) X10*3/uL Absolute Neuts (auto) (2.0-8.3) X10*3/uL Absolute Nucleated RBC (0.0-0.012) X10*3/uL Nucleated RBC % (auto) (0.0-0.2) /100WBC Sodium (135-145) mmol/L Potassium (3.3-5.1) mmol/L Chloride (96-108) mmol/L Carbon Dioxide (22-29) mmol/L Anion Gap (12-20) BUN (9-16) mg/dL Creatinine (0.5-1.4) mg/dL Estim Creat Clear Calc Estimated GFR POC Glucose 96 (60-115) mg/dL Random Glucose (60-115) mg/dL Calcium (8.4-10.2) mg/dL Total Bilirubin (0.0-1.0) mg/dL AST (5-31) U/L ALT (0-31) U/L Alkaline Phosphatase (39-117) U/L Troponin I High Sens (<3.5-17.0) ng/L Total Protein (6.5-8.0) g/dL Albumin (3.5-5.0) g/dL ECG Data ECG #1: Attestation: I personally reviewed and interpreted this ECG as follows: Interpretation: 1111: Sinus rhythm with a first-degree AV block, rate 80, prolonged QRS interval of 102 milliseconds, normal QTC interval, T-wave in lead 3, no ST segment elevation, no ST segment depression, no old EKG for comparison. Discharge Plan Discharge Clinical Impression: Acute costochondritis Patient Disposition: Home, Self-Care Instructions: Costochondritis (ED) Additional Instructions: Your blood work was normal. Your troponin was normal, the suggest that she did not have a heart attack today. Your very tender when I push on the right side of your chest, your pain is caused by inflammation of the joints of the chest. Take Tylenol (acetaminophen) 500 mg pills, 2 pills every 4 to 6 hours as needed for pain. Use a heating pad on low for 10-15 minutes 4 to 6 times a day. Follow-up with your doctor in 2 days. Please return to the emergency department if your symptoms get worse or if you develop any symptoms that are concerning to you. Prescriptions: No Action Saccharomyces boulardii [Florastor] 250 mg capsule 250 mg PO BID Qty: 50 RF: 5 plecanatide [Trulance] 3 mg tablet 3 mg PO DAILY 30 Days Qty: 30 RF: 5 tiotropium bromide 18 mcg capsule, w/inhalation device 1 cap inhalation DAILY 30 Days Qty: 30 RF: 6 rosuvastatin 40 mg tablet 40 mg PO DAILY 30 Days Qty: 30 RF: 5 cholecalciferol (vitamin D3) 50 mcg (2,000 unit) capsule 50 mcg PO QAM Qty: 30 RF: 3 gabapentin 400 mg capsule 400 mg PO BID Qty: 60 RF: 5 prednisone 10 mg tablet 40 mg PO DAILY 5 Days Qty: 20 RF: 0 Culturelle 10 billion cell capsule 1 cap PO DAILY 30 Days Qty: 30 RF: 3 glucose [Dex4 Glucose] 4 gram tablet,chewable 16 g PO Q15M PRN (Reason: hypoglycemia) 30 Days Qty: 30 RF: 5 Culturelle 10 billion cell capsule 1 cap PO DAILY 30 Days Qty: 30 RF: 6 fluticasone propion-salmeterol 250-50 mcg/dose blister with device inhalation RF: 0 metformin 500 mg tablet extended release 24 hr 500 mg PO BID 30 Days Qty: 60 RF: 6 tramadol 50 mg tablet 50 mg PO BID PRNRF: 0 levothyroxine 75 mcg capsule 75 mcg PO DAILY RF: 0 montelukast 10 mg tablet 10 mg PO DAILY RF: 0 clonazepam [Klonopin] 1 mg tablet 1 mg PO BEDTIME RF: 0 (DME) Knee Support Brace Misc See Rx Instructions .ROUTE .MEDSUPPLY Qty: 2 RF: 0 bisacodyl [Dulcolax (bisacodyl)] 5 mg tablet,delayed release (DR/EC) See Rx Instructions PO BEDTIME 30 Days Qty: 90 RF: 3 meclizine 25 mg tablet PO RF: 0 Xolair 150 mg/mL syringe subcut RF: 0 glucose 4 gram tablet,chewable 16 g PO RF: 0 tramadol 50 mg tablet 50 mg PO Q12H PRN (Reason: pain) RF: 0 ipratropium-albuterol 0.5 mg-3 mg(2.5 mg base)/3 mL solution for nebulization inhalation Q6H PRNRF: 0 alcohol swabs Pads, Medicated topical DAILY RF: 0 acetaminophen 325 mg tablet 0 mg PO RF: 0 zolpidem 10 mg tablet 10 mg PO BEDTIME PRNRF: 0 buspirone 5 mg tablet 5 mg PO BID RF: 0 fluticasone propionate 50 mcg/actuation spray,suspension 1 spray intranasal BID RF: 0 montelukast 10 mg tablet 10 mg PO DAILY RF: 0 Cerovite Advanced Formula 18-400 mg-mcg tablet 1 tab PO QAM RF: 0 risperidone 0.5 mg tablet 0.5 mg PO BID RF: 0 albuterol sulfate 90 mcg/actuation HFA aerosol inhaler 2 puff PO QID RF: 0 docusate sodium 100 mg capsule 100 mg PO BID RF: 0 amlodipine 10 mg tablet 10 mg PO BEDTIME RF: 0 enalapril maleate 10 mg tablet 10 mg PO QAM RF: 0 cyclobenzaprine 10 mg tablet 10 mg PO DAILY PRNRF: 0 Combivent Respimat 20-100 mcg/actuation mist 1 puff PO QID RF: 0 (DME) lancets 33 gauge misc See Rx Instructions ea Not Applicable DAILY Qty: 100 RF: 0 Flovent HFA 220 mcg/actuation HFA aerosol inhaler 1 puff PO BID RF: 0 (DME) FreeStyle Lite Strips Strip See Rx Instructions ea Not Applicable DAILY Qty: 10 RF: 0 calcium carbonate-vitamin D3 600 mg(1,500mg) -400 unit tablet 1 tab PO BID RF: 0 potassium chloride 20 mEq tablet,ER particles/crystals 20 meq PO BID RF: 0 cetirizine 10 mg tablet 10 mg PO BEDTIME RF: 0 (DME) blood-glucose meter Kit See Rx Instructions ea .ROUTE DAILY Qty: 1 RF: 0 omeprazole 20 mg capsule,delayed release(DR/EC) 20 mg PO BID RF: 0
[2020-04-26 14:05] VITALS: BP 151/105; PULSE 70; RESP 12; TEMP 36.6; O2SAT 99
== END 2020-04-26 14:25 | disposition home or self-care (01) ==
PROVIDERS: Emergency Provider Emergency Medicine Emergency Medical Services; PCP Nurse Practitioner Primary Care
DX: M94.0 Chondrocostal junction syndrome [Tietze] (principal); F14.10 Cocaine abuse, uncomplicated; Z86.718 Personal history of other venous thrombosis and embolism; Z79.899 Other long term (current) drug therapy
CPT/HCPCS: 36415; 71046; 80053; 82947; 84484; 85025; 93005; 96374; 96375; 99284; 99285; J2270; J2405

== ENCOUNTER → 2020-05-02 13:09 | Outpatient (BNVA) | payer OTHER, SELFPAY | PROVIDERS: PCP Nurse Practitioner Primary Care; Visit Provider Internal Medicine Pulmonary Disease | DX: J45.50 Severe persistent asthma, uncomplicated (principal); Z91.09 Other allergy status, other than to drugs and biological substances | CPT/HCPCS: 99212 ==

== ENCOUNTER 2020-05-05 10:14 | Outpatient (REF) | payer OTHER, SELFPAY | END 2020-05-05 10:15 | disposition home or self-care (01) | LOC: HO.MDS 10:14 | PROVIDERS: Visit Provider Internal Medicine Pulmonary Disease | DX: J45.50 Severe persistent asthma, uncomplicated (principal) | CPT/HCPCS: 96372; J2357 ==

== ENCOUNTER 2020-05-08 10:00 | Outpatient (RCR) | payer OTHER, SELFPAY ==
--- NOTE | 2020-03-27 15:00 | MHC.OT.OEV ---
[address] [phone] F: [phone] Occupational Therapy Evaluation Diagnosis: B/L HAND PAIN Date of Onset: 11/18/19 Date of Surgery: Attending Provider: Mariel Carver Prescribed Treatment: EVAL AND TREAT History of Current Condition: REPORTS AN INCREASE IN B/L HAND PAIN R>L, AGGRIVATED BY COLD TEMPERATURES. HX OF ATTENDING OUTPATIENT OT 2 YEARS AGO WITH (+) RELIEF. Significant Medical History: DM TYPE I, ARTHRITIS IN HANDS AND KNEES Precautions/Contraindications: LANGUAGE BARRIER Patient Goals: TO DECREASE PAIN Hand Dominance: Right QuickDASH Score: CONTINUE TO ASSESS Prior Level of Function and Occupation Self Care, Employment, Leisure: SOME ASSIST FROM TRANSPORTATION SUPERVISOR FOR ADLs AND RECEIVES MOST ASSIST FOR IADLs HOBBIES: EXERCISING AND BIKE RIDING, LISTENING TO MUSIC, USING/ PLAYING ON CELL PHONE Living Situation, Family and/or Social Support: HAS TRANSPORTATION SUPERVISOR 3 PM -6 PM AND 10 PM-2 AM; 7 DAYS/ WEEK FROM SON LIVES ALONE Current Level of Function and Occupation Self Care, Employment, Leisure: ASSIST FOR BUTTONS, ZIPPERS, AND OPENING JARS. RECENT INCREASE IN ASSIST FOR ADLs. Sleep: SOME INTERRUPTIONS DUE TO PAIN IN B/L HANDS (COLD) Driving: DOES NOT DRIVE Pain Assessment Pain Score: 5-9/10 Pain Scale Used: Numeric (0 - 10) Pain Location and Description: 5-6/10 LEFT HAND 7/10 RIGHT HAND AT REST, 9/10 LEFT HAND WITH USE, 9/10 RIGHT HAND WITH USE Aggravating Factors: COLD, GRIPPING ACTIVITES Alleviating Factors: SOAKING HANDS IN HOT WATER Skin and Soft Tissue Assessment Skin and Soft Tissue: Comments: DRY B/L HANDS Nerve assessment Ulnar Nerve: Median Nerve: WFL Radial Nerve: Comments: Sensory Assessment Temperature: Light Touch: WFL Proprioception: Vibration: Comments: DIMINISHED TO LIGHT TOUCH B/L PER SEMMES CRISTOFER ASSESSMENT Edema Assessment Upper Extremity: WNL Lower Extremity: Comments: GROSSLY EQUAL B/L'LY IN WRISTS AND DIGITS Dexterity Assessment Dexterity: B/L Impaired Comments: FUNCTIONAL DEXTERITY TEST: 51 SECONDS RIGHT ( NONFUNCTIONAL) DROPPED 1 TIME, 41 SECONDS LEFT (MODERATELY FUNCTIONAL) Special Tests Comments: (-) PHALENES B/L'LY AROM(PROM) Strength Wrist Flexion: L 60, R 60 Extension: L 75, R 75 Ulnar Deviation: Radial Deviation: Comments: WFL B/L'LY Flexion: Extension: Ulnar Deviation: Radial Deviation: Comments: Digits Index MCP: PIP: DIP: Long MCP: PIP: DIP: Ring MCP: PIP: DIP: Small MCP: PIP: DIP: Comments: TIP TO DPC, ABLE TO MAKE COMPOSITE FIST Gross Grasp: R 55, L 52 Lateral Pinch: R 13, L 12 Two-Point Pinch: R 6, L 6 Three-Jaw Gus: R 11, L 10 Comments: Patient Education 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 Patient demonstrates Patient verbalizes Needs reinforcement Barriers to Learning: Other Readiness for Learning: Accepting Who was educated? 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 SHE REPORTS INCREASED DIFFICULTIES WITH PERFORMING ADLs AND WITH HER QUALITY OF SLEEP. SHE PREVIOUSLY OWNED A RIGHT RESTING HAND SPLINT, YET HAS MISPLACED SPLINT. HER SON/ TRANSPORTATION SUPERVISOR ASSISTS WITH MOST IADLs, YET Pt RECEPTIVE TO PATIENT EDUCATION AND JOINT PROTECTION. SHE WOULD CONTINUE TO BENEFIT FROM ONGOING OT TO ACHIEVE OPTIMAL FUNCTIONAL LEVEL. STG Duration: 2 WEEKS Short Term Goals: IND HEP IND WITH USE OF HEAT, INCLUDING HOME PARAFFIN UNIT IND JOINT PROTECTION AND ACTIVITY MODIFICATION IND WITH ORTHOSIS WEAR REPORT <3/10 PAIN AT REST IND WITH ADL CLOSURE BOARD/ FINE MOTOR TASKS LTG Duration: 4 WEEKS Pull Through Hooker Goals: IMPROVE DEXTERITY TO MODERATELY FUNCTIONAL LEVEL FOR R HAND, PER FDT REPORT <4/10 WITH ADLs AND LIGHT IADLs IMPROVE B/L GRASP BY 5 POUNDS REPORT <MINIMAL SLEEP INTERRUPTIONS DUE TO PAIN Frequency and Duration: The patient will be seen 2x/WEEK FOR 4 WEEKS Treatment Plan: Therapeutic Exercise Therapeutic Activity Home Exercise Program Splinting Neuro Re-ed Patient Education Desensitization/Sensory Re-ed Edema Control ADL Training Ultrasound NMES Paraffin Fluidotherapy MHP Cold Packs Joint Mobilization Soft Tissue Mobilization Kinesiotaping Electronically Signed By: PADMA BRISENO, OTR/L Please sign and return to therapist, Thank you for your referral.
--- NOTE | 2020-05-30 07:49 | MHC.OT.DC ---
[address] [phone] F: [phone] Occupational Therapy Discharge Note Provider: Mariel Carver MD Diagnosis: B/L HAND PAIN Date of Surgery: Date of Evaluation: 03/27/20 Date of Discharge: Treatments to Date: 4 Discharge Status: Achieved Goals Improved Function Independent with HEP Discharge Summary: Pt reports hands are painfree with daily activities unless their cold Associate Producer and hand dexterity are WNL Pt is aware of activity modification for joint protection with homemaking tasks. Goals met. Electronically Signed By: Rosana Javier OT CHT CLT Reviewed/agree with student documentation: N/A Therapist: Please Sign and return to therapist, thank you for your referral.
--- NOTE | 2020-05-30 08:22 | MHC.OT.DC ---
[address] [phone] F: [phone] Occupational Therapy Discharge Note Provider: Mariel Carver MD Diagnosis: B/L HAND PAIN Date of Surgery: Date of Evaluation: 03/27/20 Date of Discharge: Treatments to Date: 4 Cancellations to Date: No Shows to Date: Discharge Status: Achieved Goals Improved Function Independent with HEP Discharge Summary: Pt reports hands are painfree with daily activities unless their cold Telepathist and hand dexterity are WNL Pt is aware of activity modification for joint protection with homemaking tasks. Goals met. Electronically Signed By: Rosana Javier OT CHT CLT Reviewed/agree with student documentation: N/A Therapist: Please Sign and return to therapist, thank you for your referral.
== END 2020-05-30 08:24 | disposition other institution (70) ==
LOC: HO.OT 10:00
PROVIDERS: PCP Nurse Practitioner Family; Visit Provider Student in an Organized Health Care Education/Training Program
DX: M79.7 Fibromyalgia (principal)
CPT/HCPCS: 29130; 97018; 97110; 97166; 97760

== ENCOUNTER 2020-05-09 09:35 | Outpatient (REF) | payer OTHER, SELFPAY ==
[2020-05-09 16:36] LABS: CT PCR NOT DETECTED (Not Detect.); NG PCR NOT DETECTED (Not Detect.)
[2020-05-10 09:23] LABS: BV Int Neg Control Negative (Negative); BV Int Pos Control Positive (Positive)
[2020-05-12 00:36] LABS: HPV mRNA E6/E7 rflx Not Detected (Not Detected)
== END 2020-05-09 09:36 | disposition home or self-care (01) ==
LOC: HO.LAB 09:35
PROVIDERS: PCP Nurse Practitioner Primary Care; Visit Provider Advanced Practice Midwife
DX: Z01.419 Encounter for gynecological examination (general) (routine) without abnormal findings (principal); Z11.51 Encounter for screening for human papillomavirus (HPV); B37.9 Candidiasis, unspecified; Z62.810 Personal history of physical and sexual abuse in childhood
CPT/HCPCS: 36415; 87480; 87491; 87510; 87591; 87624; 87660; 88142

== ENCOUNTER 2020-05-17 10:55 | Emergency (ER) | payer OTHER, SELFPAY ==
[2020-05-17 11:44] VITALS: BP 133/93; PULSE 82; RESP 18; TEMP 36.8; O2SAT 95; BMI 34.6
== END 2020-05-17 13:07 | disposition left against medical advice (07) ==
PROVIDERS: Emergency Provider Emergency Medicine; PCP Nurse Practitioner Primary Care
DX: J45.909 Unspecified asthma, uncomplicated (principal); Z79.899 Other long term (current) drug therapy
CPT/HCPCS: 99281; 99282

== ENCOUNTER → 2020-05-18 11:10 | Outpatient (BNVA) | payer OTHER, SELFPAY | PROVIDERS: PCP Nurse Practitioner Primary Care; Visit Provider Internal Medicine | DX: J44.1 Chronic obstructive pulmonary disease with (acute) exacerbation (principal); J45.50 Severe persistent asthma, uncomplicated; J30.9 Allergic rhinitis, unspecified; J40 Bronchitis, not specified as acute or chronic; F17.200 Nicotine dependence, unspecified, uncomplicated | CPT/HCPCS: 99212 ==

== ENCOUNTER 2020-05-19 09:32 | Outpatient (REF) | payer OTHER, SELFPAY | END 2020-05-19 09:33 | disposition home or self-care (01) | LOC: HO.MDS 09:32 | PROVIDERS: PCP Nurse Practitioner Primary Care; Visit Provider Internal Medicine Pulmonary Disease | DX: J45.50 Severe persistent asthma, uncomplicated (principal) | CPT/HCPCS: 96372; J2357 ==

== ENCOUNTER → 2020-05-22 09:46 | Outpatient (BNVA) | payer OTHER, SELFPAY | PROVIDERS: PCP Nurse Practitioner Primary Care; Visit Provider Nurse Practitioner | DX: Z13.89 Encounter for screening for other disorder (principal) | CPT/HCPCS: 99212 ==

== ENCOUNTER 2020-05-24 13:30 | Outpatient (RCR) | payer OTHER, SELFPAY | END 2020-10-25 13:27 | disposition home or self-care (01) | LOC: HO.PT 13:30 | PROVIDERS: Visit Provider Nurse Practitioner Primary Care | DX: R42 Dizziness and giddiness (principal) | CPT/HCPCS: 95992; 97161; 97535 ==

== ENCOUNTER 2020-06-02 09:17 | Outpatient (REF) | payer OTHER, SELFPAY | END 2020-06-02 09:18 | disposition home or self-care (01) | LOC: HO.MDS 09:17 | PROVIDERS: PCP Nurse Practitioner Primary Care; Visit Provider Internal Medicine Pulmonary Disease | DX: J45.50 Severe persistent asthma, uncomplicated (principal) | CPT/HCPCS: 96372; J2357 ==

== ENCOUNTER 2020-06-06 07:54 | Outpatient (REF) | payer OTHER, SELFPAY ==
--- NOTE | ~2020-06-06 | US_ITS ---
EXAMINATION: US ABDOMEN COMPLETE CLINICAL INFORMATION: [place]. COMPARISON: Ultrasound abdomen limited 02/21/2020 and 07/28/2019. CT abdomen and pelvis 12/25/2018. KUB 04/21/2017 and 05/15/2017. TECHNIQUE: Real-time imaging of the abdominal viscera. FINDINGS: PANCREAS: Normal. ABDOMINAL AORTA: Focal dilatation of the distal abdominal aorta is redemonstrated measuring approximately 2.6 x 2.7 cm, similar when compared to the CT dated 12/25/2018. The proximal abdominal aorta measures up to 2.2 cm in greatest dimension. Given the difference in caliber of the proximal and distal abdominal aorta, no routine follow-up imaging recommended. INFERIOR VENA CAVA: Visualized portions are normal. LIVER: Normal. The liver is normal in size. The liver contour is normal. Parenchymal echogenicity is normal. No focal hepatic lesion. There is no intrahepatic biliary duct dilatation seen. GALLBLADDER: Normal. The gallbladder is physiologically distended without evidence of stones, sludge, polyps, wall thickening or pericholecystic fluid. COMMON BILE DUCT: Normal in caliber measuring 0.34 cm in diameter. RIGHT KIDNEY: Normal. No hydronephrosis. No renal calculi or focal parenchymal lesions. The kidney measures 10.6 cm in maximum dimension. LEFT KIDNEY: Midpole simple cyst measuring 2.1 cm. Findings are not clinically significant and no follow-up imaging is recommended. Lower pole stone measuring up to 0.6 cm, slightly more prominent when compared to the prior CT. No hydronephrosis. The kidney measures 12.5 cm in maximum dimension. SPLEEN: Normal. The spleen measures 7.5 cm in maximum dimension. FREE FLUID: None. US/US abdomen complete IMPRESSION: 1. Left lower pole renal stone measuring 0.6 cm, slightly more prominent when compared to the prior CT. No right-sided renal stone. No hydronephrosis. 2. Normal hepatic echogenicity. No hepatic parenchymal lesion or biliary ductal dilatation. 3. No cholelithiasis, gallbladder wall thickening, or pericholecystic free fluid to suggest acute cholecystitis.
== END 2020-06-06 07:55 | disposition home or self-care (01) ==
LOC: HO.US 07:54
PROVIDERS: Visit Provider Nurse Practitioner
DX: K75.81 Nonalcoholic steatohepatitis (NASH) (principal)
CPT/HCPCS: 76700

== ENCOUNTER 2020-06-11 14:17 | Emergency (ER) | payer OTHER, SELFPAY ==
--- NOTE | ~2020-06-11 | US_ITS ---
EXAMINATION: US DIAGNOSTIC ULTRASOUND BREAST, LEFT CLINICAL INFORMATION: Erythema. Pain. Concern for abscess.. COMPARISON: Mammogram from October 12, 2019. TECHNIQUE: Ultrasound of the breast is performed with real-time quiñones scale imaging and color Doppler. FINDINGS: There are no concerning solid or cystic lesions. There is mild periareolar ductal dilation. No intraductal mass lesions are demonstrable. US/US breast LT limited IMPRESSION: Periareolar ductal dilation without intraductal mass lesions. No concerning solid or cystic lesions. ASSESSMENT: BI-RADS 2: Benign RECOMMENDATION: Routine annual mammography screening, due in September 2020. This patient's information was entered into a reminder system with a target due date for their next mammogram.
[2020-06-11 14:28] VITALS: BP 112/70; PULSE 83; RESP 18; TEMP 37.1; O2SAT 94; BMI 31.8
--- NOTE | 2020-06-11 15:35 | ED.SKABFB ---
HPI - Skin/Abscess/Foreign Bdy General Chief complaint: Skin/Abscess/Foreign Body Stated complaint: abscess Time Seen by Provider: 06/11/20 15:34 Source: patient Mode of arrival: ambulatory Limitations: no limitations History of Present Illness HPI narrative: 59 yo female with history of diabetes, COPD, GERD, OKEEFE, fibromyalgia, depression/anxiety who presents with a reddened tender area on her left breast that has been worsening over the last 3 days. She states she 1st noticed some tenderness to her left breast around her nipple area about 3 days when she touched it. It was slightly hard and red. She had left over antibiotics (unknown name) and started taking them. She states the redness has improved with the antibiotic but the pain has not. She reports when she squeezed her breast she was able to express a small amount of pink fluid from her left nipple. She states this feels similar to when she had mastitis when she was nursing decades ago. She denies fever, chills, N/V or chest pain. She had a normal mammogram in the last 1 year and denies family history of breast cancer. She states her glucose has been under adequate control, 120 this morning. MD complaint: discoloration (& tenderness) Onset (ago): day(s) (3) Tetanus up to date: yes Location: chest Severity: moderate Quality: aching Pain Consistency: constant Relieving factors: medication Exacerbating factors: palpation Context: none Associated symptoms: denies other symptoms Treatments prior to arrival: attempted to drain pus at home and other (old antibiotic) Related Data Home Medications Medication Instructions Recorded Confirmed acetaminophen 325 mg tablet 0 mg PO 11/20/19 05/09/20 albuterol sulfate 90 mcg/actuation 2 puff PO QID 11/20/19 05/09/20 aerosol inhaler alcohol swabs pad TOPICAL DAILY 11/20/19 03/08/20 amlodipine 10 mg tablet 10 mg PO BEDTIME 11/20/19 03/08/20 blood sugar diagnostic #10 ea 11/20/19 03/08/20 blood-glucose meter #1 ea 11/20/19 03/08/20 buspirone 5 mg tablet 5 mg PO BID 11/20/19 03/08/20 calcium carbonate 600 mg (1,500 1 tab PO BID 11/20/19 03/08/20 mg)-vitamin D3 400 unit tablet cetirizine 10 mg tablet 10 mg PO BEDTIME 11/20/19 03/08/20 cyclobenzaprine 10 mg tablet 10 mg PO DAILY PRN 11/20/19 03/08/20 enalapril maleate 10 mg tablet 10 mg PO QAM 11/20/19 05/09/20 fluticasone propionate 220 1 puff PO BID 11/20/19 05/09/20 mcg/actuation HFA aerosol inhaler fluticasone propionate 50 1 spray INTRANASAL BID 11/20/19 03/08/20 mcg/actuation nasal spray,suspension glucose 4 gram chewable tablet 16 g PO 11/20/19 03/08/20 ipratropium 0.5 mg-albuterol 3 mg ml INHALATION Q6H PRN 11/20/19 03/08/20 (2.5 mg base)/3 mL nebulization soln ipratropium 20 mcg-albuterol 100 1 puff PO QID 11/20/19 03/08/20 mcg/actuation mist for inhalation lancets 33 gauge #100 ea 11/20/19 03/08/20 meclizine 25 mg tablet mg PO 11/20/19 05/09/20 omalizumab 150 mg/mL subcutaneous mg SUBCUT 11/20/19 03/08/20 syringe potassium chloride 20 mEq 20 meq PO BID 11/20/19 05/09/20 tablet,extended release(part/cryst) risperidone 0.5 mg tablet 0.5 mg PO BID 11/20/19 05/09/20 zolpidem 10 mg tablet 10 mg PO BEDTIME PRN 11/20/19 05/09/20 omeprazole 20 mg capsule,delayed 20 mg PO BID 11/23/19 05/09/20 release fluticasone 250 mcg-salmeterol 50 ea INHALATION 01/11/20 03/08/20 mcg/dose blistr powdr for inhalation clonazepam 1 mg tablet 1 mg PO BEDTIME 03/08/20 05/09/20 levothyroxine 75 mcg capsule 75 mcg PO DAILY 03/08/20 05/09/20 montelukast 10 mg tablet 10 mg PO DAILY 03/08/20 05/09/20 tramadol 50 mg tablet 50 mg PO BID PRN 03/08/20 03/08/20 Previous Rx's Medication Instructions Recorded tiotropium bromide 18 mcg capsule 1 cap INHALATION DAILY 30 Days #30 12/31/19 with inhalation device inh metformin 500 mg tablet,extended 500 mg PO BID 30 Days #60 tab 01/11/20 release 24 hr rosuvastatin 40 mg tablet 40 mg PO DAILY 30 Days #30 tab 01/27/20 cholecalciferol (vitamin D3) 50 50 mcg PO QAM #30 cap 02/15/20 mcg (2,000 unit) capsule gabapentin 400 mg capsule 400 mg PO BID #60 cap 02/22/20 leg brace #2 ea 03/08/20 prednisone 10 mg tablet 40 mg PO DAILY 5 Days #20 tab 03/20/20 Culturelle 10 billion cell capsule 1 cap PO DAILY 30 Days #30 cap NS 04/14/20 glucose 4 gram chewable tablet 16 g PO Q15M PRN 30 Days #30 tab 04/20/20 Lactobacillus rhamnosus GG 10 1 cap PO DAILY 30 Days #30 cap 04/26/20 billion cell capsule fluconazole 150 mg tablet 150 mg PO ONCE 1 Days #2 tab 05/09/20 miconazole nitrate 2 % vaginal 1 appful VAGINAL BEDTIME 7 Days 05/09/20 cream #45 g amoxicillin 500 mg-potassium 1 tab PO TID 7 Days #21 tab 05/18/20 clavulanate 125 mg tablet prednisone 20 mg tablet 20 mg PO BID 5 Days #10 tab 05/18/20 bisacodyl 5 mg tablet,delayed See Rx Instructions PO BEDTIME 30 05/22/20 release Days #90 tab docusate sodium 100 mg capsule 100 mg PO BID 30 Days #60 cap 05/22/20 plecanatide 3 mg tablet 3 mg PO DAILY 30 Days #30 tab 05/22/20 hydrocortisone 2.5 % topical cream 1 appl [place] BID PRN #30 g 05/23/20 with perineal applicator cephalexin 500 mg PO Q8H 10 Days #30 cap 06/11/20 doxycycline hyclate 100 mg PO BID #14 tab 06/11/20 Allergies Allergy/AdvReac Type Severity Reaction Status Date / Time aspirin [Aspirin] Allergy Mild ITCHY Verified 05/22/20 09:48 THROAT azithromycin Allergy Unknown Unknown Verified 05/22/20 09:48 naproxen Allergy Unknown Unknown Verified 05/22/20 09:48 simvastatin Allergy Unknown Unknown Verified 05/22/20 09:48 onion [ONION] AdvReac Mild RED FACE Verified 05/22/20 09:48 Review of Systems Review of Systems: Constitutional: No Fever, No Chills Cardiovascular: No Chest Pain, No SOB Respiratory: No Cough, No Sputum Gastrointestinal: No Nausea, No Vomiting, No Diarrhea, No abdominal Pain Musculoskeletal: No joint pain, No Myalgias Skin: + Skin Lesions, No rash Heme/Lymph: No Bruising, No Lymphadenopathy PMFSH Past Medical History Medical History Bronchitis Cocaine abuse COPD exacerbation DVT (deep venous thrombosis) Hypothyroidism Low vitamin D level Menometrorrhagia Non-toxic multinodular goiter Surgical History H/O colonoscopy with polypectomy History of esophagogastroduodenoscopy (EGD) History of hysterectomy History of lithotripsy History of selective injection of anesthetic agent around lumbar nerve root Hx of right breast biopsy Family History Family History Father No problems noted. Mother Myocardial infarction CVA (cerebral vascular accident) Social History Social History (Updated 05/22/20 @ 10:03 by LIZET Tillman) Household Members: None Alcohol intake: never Smoking Status: Former smoker Smoked in Last 30 Days: No Use of substances other than those prescribed or required for medical reasons: No Advance Directives: No Advance Directives Information Provided: No Current occupational status: disabled Physical Exam Vital Signs: Vital Signs: Last Vital Signs Temp 98.8 F 06/11/20 14:28 Pulse 83 06/11/20 14:28 Resp 18 06/11/20 14:28 BP 112/70 06/11/20 14:28 Pulse Ox 94 06/11/20 14:28 Body Mass Index 31.8 Appearance: Alert. Oriented X3. No acute distress. HEENT: normal inspection CVS: Normal heart rate and rhythm. Pulses normal. Respiratory: No respiratory distress. Lungs clear throughout Chest: left breast with mild javier-areolar erythema, tenderness. normal appearing left areola, unable to express discharge or pus, no palpable mass or fluctuance Skin: Skin warm and dry. Normal skin color. Normal skin turgor. No rashes. Extremities: atraumatic, no edema. Neuro: Oriented X 3. No motor deficit. No sensory deficit. Course Course Course Narrative: 59 y/o female with multiple co-morbidities presenting with reddened and tender area on her left breast around her areola. She is non-toxic appearing and afebrile on arrival. Will get U/S to r/o underlying abscess. No palpable mass or area of fluctuance on examination. PO abx ordered to cover for cellulitis. Reevaluation(s) Reevaluation #1: U/S showing: Periareolar ductal dilation without intraductal mass lesions. No concerning solid or cystic lesions. ASSESSMENT: BI-RADS 2: Benign RECOMMENDATION: Routine annual mammography screening, due in September 2020. This patient's information was entered into a reminder system with a target due date for their next mammogram. Will treat with PO antibiotics and have her follow up with her PCP. Instructed to return to the ER if symptoms worsen or change despite abx. Discharge Plan Discharge Clinical Impression: Cellulitis Qualifiers: Site of cellulitis: trunk Site of cellulitis of trunk: chest wall Qualified Code(s): L03.313 - Cellulitis of chest wall Patient Disposition: Home, Self-Care Instructions: Cellulitis (ED) Additional Instructions: Your ultrasound results are as follows: Periareolar ductal dilation without intraductal mass lesions. No concerning solid or cystic lesions. ASSESSMENT: BI-RADS 2: Benign RECOMMENDATION: Routine annual mammography screening, due in September 2020. This patient's information was entered into a reminder system with a target due date for their next mammogram. Take the prescribed antibiotics as directed. Use warm compresses to the area several times per day. Follow up with your doctor in 1 week. If the redness extends beyond the margins call your doctor or come back to the ER. If you have worsening symptoms come back to the ER for further evaluation. Prescriptions: New doxycycline hyclate 100 mg tablet,delayed release (DR/EC) 100 mg PO BID Qty: 14 RF: 0 cephalexin 500 mg capsule 500 mg PO Q8H 10 Days Qty: 30 RF: 0 No Action tiotropium bromide 18 mcg capsule, w/inhalation device 1 cap inhalation DAILY 30 Days Qty: 30 RF: 6 rosuvastatin 40 mg tablet 40 mg PO DAILY 30 Days Qty: 30 RF: 5 cholecalciferol (vitamin D3) 50 mcg (2,000 unit) capsule 50 mcg PO QAM Qty: 30 RF: 3 gabapentin 400 mg capsule 400 mg PO BID Qty: 60 RF: 5 prednisone 10 mg tablet 40 mg PO DAILY 5 Days Qty: 20 RF: 0 Culturelle 10 billion cell capsule 1 cap PO DAILY 30 Days Qty: 30 RF: 3 glucose [Dex4 Glucose] 4 gram tablet,chewable 16 g PO Q15M PRN (Reason: hypoglycemia) 30 Days Qty: 30 RF: 5 Culturelle 10 billion cell capsule 1 cap PO DAILY 30 Days Qty: 30 RF: 6 hydrocortisone [Proctosol HC] 2.5 % cream with perineal applicator 1 appl [place] BID PRN (Reason: hemorrhoids) Qty: 30 RF: 6 fluticasone propion-salmeterol 250-50 mcg/dose blister with device inhalation RF: 0 metformin 500 mg tablet extended release 24 hr 500 mg PO BID 30 Days Qty: 60 RF: 6 tramadol 50 mg tablet 50 mg PO BID PRNRF: 0 levothyroxine 75 mcg capsule 75 mcg PO DAILY RF: 0 montelukast 10 mg tablet 10 mg PO DAILY RF: 0 clonazepam [Klonopin] 1 mg tablet 1 mg PO BEDTIME RF: 0 (DME) Knee Support Brace Misc See Rx Instructions .ROUTE .MEDSUPPLY Qty: 2 RF: 0 Trulance 3 mg tablet 3 mg PO DAILY 30 Days Qty: 30 RF: 5 bisacodyl [Dulcolax (bisacodyl)] 5 mg tablet,delayed release (DR/EC) See Rx Instructions PO BEDTIME 30 Days Qty: 90 RF: 6 docusate sodium 100 mg capsule 100 mg PO BID 30 Days Qty: 60 RF: 4 fluconazole 150 mg tablet 150 mg PO ONCE 1 Days Qty: 2 RF: 6 miconazole nitrate [Miconazole 7] 2 % cream 1 appful vaginal BEDTIME 7 Days Qty: 45 RF: 6 meclizine 25 mg tablet PO RF: 0 Xolair 150 mg/mL syringe subcut RF: 0 glucose 4 gram tablet,chewable 16 g PO RF: 0 ipratropium-albuterol 0.5 mg-3 mg(2.5 mg base)/3 mL solution for nebulization inhalation Q6H PRNRF: 0 alcohol swabs Pads, Medicated topical DAILY RF: 0 acetaminophen 325 mg tablet 0 mg PO RF: 0 zolpidem 10 mg tablet 10 mg PO BEDTIME PRNRF: 0 buspirone 5 mg tablet 5 mg PO BID RF: 0 fluticasone propionate 50 mcg/actuation spray,suspension 1 spray intranasal BID RF: 0 risperidone 0.5 mg tablet 0.5 mg PO BID RF: 0 albuterol sulfate 90 mcg/actuation HFA aerosol inhaler 2 puff PO QID RF: 0 amlodipine 10 mg tablet 10 mg PO BEDTIME RF: 0 enalapril maleate 10 mg tablet 10 mg PO QAM RF: 0 cyclobenzaprine 10 mg tablet 10 mg PO DAILY PRNRF: 0 Combivent Respimat 20-100 mcg/actuation mist 1 puff PO QID RF: 0 (DME) lancets 33 gauge misc See Rx Instructions ea Not Applicable DAILY Qty: 100 RF: 0 Flovent HFA 220 mcg/actuation HFA aerosol inhaler 1 puff PO BID RF: 0 (DME) FreeStyle Lite Strips Strip See Rx Instructions ea Not Applicable DAILY Qty: 10 RF: 0 calcium carbonate-vitamin D3 600 mg(1,500mg) -400 unit tablet 1 tab PO BID RF: 0 potassium chloride 20 mEq tablet,ER particles/crystals 20 meq PO BID RF: 0 cetirizine 10 mg tablet 10 mg PO BEDTIME RF: 0 (DME) blood-glucose meter Kit See Rx Instructions ea .ROUTE DAILY Qty: 1 RF: 0 omeprazole 20 mg capsule,delayed release(DR/EC) 20 mg PO BID RF: 0 amoxicillin-pot clavulanate [Augmentin] 500-125 mg tablet 1 tab PO TID 7 Days Qty: 21 RF: 0 prednisone 20 mg tablet 20 mg PO BID 5 Days Qty: 10 RF: 0 Referrals: Sariah Vickers, [facility] [Primary Care Provider] - 1 week
[2020-06-11] MEDS: cephALEXin 500 MG CAPSULE PO (16:25)
== END 2020-06-11 17:03 | disposition home or self-care (01) ==
PROVIDERS: Emergency Provider Emergency Medicine; PCP Nurse Practitioner Primary Care
DX: L03.313 Cellulitis of chest wall (principal); I10 Essential (primary) hypertension; E78.5 Hyperlipidemia, unspecified; J44.9 Chronic obstructive pulmonary disease, unspecified; F14.10 Cocaine abuse, uncomplicated; Z86.718 Personal history of other venous thrombosis and embolism; Z79.02 Long term (current) use of antithrombotics/antiplatelets; Z79.899 Other long term (current) drug therapy; Z87.891 Personal history of nicotine dependence
CPT/HCPCS: 76642; 99284

== ENCOUNTER 2020-06-16 09:38 | Outpatient (REF) | payer OTHER, SELFPAY | END 2020-06-16 09:39 | disposition home or self-care (01) | LOC: HO.MDS 09:38 | PROVIDERS: PCP Nurse Practitioner Primary Care; Visit Provider Internal Medicine Pulmonary Disease | DX: J45.50 Severe persistent asthma, uncomplicated (principal) | CPT/HCPCS: 96372; J2357 ==

== ENCOUNTER 2020-06-19 10:00 | Outpatient (RCR) | payer OTHER, SELFPAY ==
--- NOTE | 2020-06-02 13:12 | MHC.PT.EP ---
[facility] [place] [facility] [place] [facility] [place] [facility] [address] [phone] F: [phone] F: [phone] F: [phone] F: [phone] Physical Therapy Plan of Care Date of Evaluation: 06/02/20 Date of Surgery: NA Diagnosis: FIBROMYALGIA, B KNEE PAIN Assessment: Pt IS 59 YO F REFERRED TO PT FROM DR MCQUEEN WITH FIBROMYALGIA AND B KNEE PAIN.. Pt HAS HAD PT IN PAST BUT REPORTS SHE DOES NOT DO EXS AT HOME. Pt WAS NOT SURE WHY THE DR SENT HER FOR PT. REPORTS NO PAIN IN KNEES WITH REST BUT PAIN IN KNEES WITH INCREASED WALKING. PRESENTS WITH ROM AND STRENGTH WFLS BUT SOME DECREASE IN ENDURANCE WITH PERFORMANCE OF EXS. 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 I HEP 2. INCREASED AWARENESS KNEE CARE 3. DECREASED KNEE PAIN AT LEAST 50% WITH ADLS Ladle Operator Goals: Treatment Plan: Modalities to reduce pain, spasms and effusion. Manual therapy to restore motion and function. Therapeutic exercise to improve strength and flexibility. Neuromuscular re-education for posture and balance. Therapeutic activities to return to functional activities of daily living. Electronically signed by: VAISHNAVI GAMBAO PT Please sign and return to therapist. Thank you for your referral.
--- NOTE | 2020-07-03 16:02 | MHC.PT.DC ---
[facility] [place] Office [place] Office [place] Office [address] Fred Brown [address] [phone] F: [phone] F: [phone] F: [phone] F: [phone] Physical Therapy Discharge Report Diagnosis: FIBROMYALGIA, B KNEE PAIN Date of Surgery: NA Date of Evaluation: 06/02/20 Date of Discharge: 07/03/20 Treatments to Date: 3 Cancellations to Date: No Shows to Date: Discharge Status: Independent with HEP Discharge Summary: AT LAST VISIT, PER NOTE FROM 06/19/20: ART IS INDEPENDENT WITH CURRENT HEP AND SELF MANAGEMENT OF SYMPTOMS. SHE DOES REPORT HER PAIN LEVELS CAN VARY. WE WILL DC ON THIS DAY PER PLAN. ART IS IN AGREEMENT AND WILL CONTACT US WITH ANY QUESTIONS Electronically signed by: VAISHNAVI GAMBOA PT Please sign and return to therapist. Thank you for your referral.
== END 2020-07-03 15:58 | disposition other institution (70) ==
LOC: HO.PT 10:00
PROVIDERS: Visit Provider Student in an Organized Health Care Education/Training Program
DX: M79.7 Fibromyalgia (principal)
CPT/HCPCS: 97110; 97161

== ENCOUNTER 2020-06-27 11:17 | Outpatient (REF) | payer OTHER, SELFPAY ==
--- NOTE | ~2020-06-27 | XR_ITS ---
EXAMINATION: XR HAND, RIGHT CLINICAL INFORMATION: Pain right fingers. COMPARISON: None TECHNIQUE: PA, lateral, and oblique views of the right hand. FINDINGS: The bones and soft tissues are normal. No fracture. Alignment is anatomic. Joint spaces are maintained. No erosions or soft tissue calcifications. XR/XR hand RT min 3V IMPRESSION: Unremarkable right hand exam.
[2020-06-27 12:58] LABS: Cholesterol 255 mg/dL; HDL Cholesterol 59 mg/dL; LDL Cholesterol Calculated 164 mg/dl; Triglycerides 163 mg/dL
[2020-06-28 12:44] LABS: Alpha Fetoprotein 2.3 ng/mL; LDL Cholesterol Direct 161 mg/dL (<100)
== END 2020-06-27 11:18 | disposition home or self-care (01) ==
LOC: HO.XRAY 11:17
PROVIDERS: Nurse Practitioner; Absent Provider Nurse Practitioner Primary Care; PCP Nurse Practitioner Primary Care; Referring Provider Internal Medicine Endocrinology, Diabetes & Metabolism; Visit Provider Emergency Medicine
DX: M79.644 Pain in right finger(s) (principal); Z91.81 History of falling; K59.04 Chronic idiopathic constipation; K75.81 Nonalcoholic steatohepatitis (NASH); E78.00 Pure hypercholesterolemia, unspecified
CPT/HCPCS: 36415; 73130; 80061; 82105; 83721; 84443

== ENCOUNTER 2020-06-30 09:54 | Outpatient (REF) | payer OTHER, SELFPAY | END 2020-06-30 09:55 | disposition home or self-care (01) | LOC: HO.MDS 09:54 | PROVIDERS: PCP Nurse Practitioner Primary Care; Visit Provider Internal Medicine Pulmonary Disease | DX: J45.50 Severe persistent asthma, uncomplicated (principal) | CPT/HCPCS: 96372; J2357 ==

== ENCOUNTER → 2020-07-03 15:35 | Outpatient (BNVA) | payer OTHER, SELFPAY | PROVIDERS: PCP Nurse Practitioner Primary Care; Visit Provider Nurse Practitioner Family | DX: M47.816 Spondylosis without myelopathy or radiculopathy, lumbar region (principal); M17.0 Bilateral primary osteoarthritis of knee | CPT/HCPCS: 99212 ==

== ENCOUNTER 2020-07-04 10:23 | Emergency (ER) | payer OTHER, SELFPAY ==
--- NOTE | ~2020-07-04 | XR_ITS ---
EXAMINATION: XR CHEST CLINICAL INFORMATION: Chest pain. COMPARISON: Chest 04/26/2020 TECHNIQUE: Frontal view of the chest was obtained. FINDINGS: No significant abnormality is noted involving the heart, lungs, mediastinum, bony thorax or soft tissues. XR/XR chest 1V IMPRESSION: Unremarkable chest examination.
--- NOTE | ~2020-07-04 | CT_ITS ---
EXAMINATION: CT ANGIOGRAM OF THE CHEST WITH AND WITHOUT CONTRAST (CT PULMONARY ANGIOGRAM FOR PE) CLINICAL INFORMATION: Reason for Exam pleuretic chest pain. Rule out PE? COMPARISON: Previous chest x-ray was recent from earlier the same day and chest CT September 2019 TECHNIQUE: Prior to contrast administration, noncontrast localization images were obtained. Subsequently, multidetector volumetric imaging was performed from the thoracic inlet to below the diaphragms following the administration of 70 mL Omnipaque 350 intravenous contrast. No contrast reaction reported Sagittal, coronal, and MIP oblique sagittal reformatted images were obtained on the CT workstation, uploaded to PACS, and reviewed. This CT examination was performed using dose optimization techniques as appropriate, variously including the following: *Automated exposure control *Adjustment of mA and/or kV according to patient size (this includes techniques or standardized protocols for targeted exams where dose is matched to indication/reason for exam; i.e. extremities or head) *Use of iterative reconstruction technique Total exam dose-length product 359 mGy-cm FINDINGS: QUALITY OF STUDY/CONTRAST BOLUS: Satisfactory. PULMONARY ARTERIES: No central or segmental pulmonary emboli. THORACIC AORTA: The thoracic aorta is dilated. The ascending thoracic aorta measures 4 x 4.3 cm. The aortic arch measures 3.3 cm. The descending thoracic aorta is normal in caliber measuring 2.5 cm but tortuous. There is a bovine arch. LUNG: There is a 4 mm calcified left lower lobe nodule axial image 47 series 7 that is stable. The lungs are otherwise clear. PLEURA: No pleural effusion or pneumothorax. MEDIASTINUM: Normal heart size. No pericardial effusion. No hilar or mediastinal lymphadenopathy. No evidence of septal bowing or right heart strain. CHEST WALL/AXILLA: No axillary or internal mammary lymphadenopathy. OSSEOUS STRUCTURES: No acute or suspicious osseous abnormality. UPPER ABDOMEN: Unremarkable. No reflux of contrast into the hepatic veins to suggest elevated right heart pressures. CT/CT angio chest PE protocol IMPRESSION: No evidence of pulmonary embolism. Slightly dilated ascending thoracic aorta and aortic arch. This is similar to September 2019 exam. Stable small calcified left lower lobe nodule probably representing a calcified granuloma. VTE: negative
--- NOTE | 2020-07-04 10:51 | ECG_ITS ---
Test Reason : CHEST PAIN Blood Pressure : / mmHG Vent. Rate : 091 BPM Atrial Rate : 091 BPM P-R Int : 210 ms QRS Dur : 098 ms QT Int : 386 ms P-R-T Axes : 046 -44 029 degrees QTc Int : 474 ms Sinus rhythm with 1st degree A-V block Left axis deviation Abnormal ECG When compared with ECG of 26-APR-2020 11:11, No significant change was found Referred By: Derian Allen Electronically Signed By:BEHZAD LOUIE MD
[2020-07-04 10:52] VITALS: BP 126/84; PULSE 86; RESP 18; TEMP 36.8; O2SAT 96; BMI 40.4
--- NOTE | 2020-07-04 11:08 | ED.CHESTPAIN ---
HPI - Chest Pain General Chief Complaint: Chest Pain <RAYMUNDO Nova Last Filed: 07/04/20 16:51> Stated Complaint: CHEST PAIN <RAYMUNDO Nova Last Filed: 07/04/20 16:51> Time Seen by Provider: 07/04/20 10:40 <RAYMUNDO Nova Last Filed: 07/04/20 16:51> Source: patient <RAYMUNDO Nova Last Filed: 07/04/20 16:51> Mode of arrival: ambulatory <RAYMUNDO Nova Last Filed: 07/04/20 16:51> Limitations: no limitations <RAYMUNDO Nova Last Filed: 07/04/20 16:51> History of Present Illness HPI narrative: Patient presents to ED for right-sided chest pain, cough, hemoptysis, body aches, and chest pain on inspiration. Patient states having symptoms for 3 days. Patient denies any fever chills. <RAYMUNDO Nova Last Filed: 07/04/20 16:51> MD complaint: chest pain <RAYMUNDO Nova Last Filed: 07/04/20 16:51> Related Data Home Medications: Home Medications Medication Instructions Recorded Confirmed albuterol sulfate 90 mcg/actuation 2 puff PO QID 11/20/19 07/10/20 aerosol inhaler alcohol swabs pad TOPICAL DAILY 11/20/19 07/10/20 amlodipine 10 mg tablet 10 mg PO BEDTIME 11/20/19 07/10/20 blood sugar diagnostic #10 ea 11/20/19 07/10/20 blood-glucose meter #1 ea 11/20/19 07/10/20 buspirone 5 mg tablet 5 mg PO BID 11/20/19 07/10/20 calcium carbonate 600 mg (1,500 1 tab PO BID 11/20/19 07/10/20 mg)-vitamin D3 400 unit tablet cetirizine 10 mg tablet 10 mg PO BEDTIME 11/20/19 07/10/20 cyclobenzaprine 10 mg tablet 10 mg PO DAILY PRN 11/20/19 07/10/20 enalapril maleate 10 mg tablet 10 mg PO QAM 11/20/19 07/10/20 fluticasone propionate 220 1 puff PO BID 11/20/19 07/10/20 mcg/actuation HFA aerosol inhaler fluticasone propionate 50 1 spray INTRANASAL BID 11/20/19 07/10/20 mcg/actuation nasal spray,suspension glucose 4 gram chewable tablet 16 g PO 11/20/19 07/10/20 ipratropium 0.5 mg-albuterol 3 mg ml INHALATION Q6H PRN 11/20/19 07/10/20 (2.5 mg base)/3 mL nebulization soln ipratropium 20 mcg-albuterol 100 1 puff PO QID 11/20/19 07/10/20 mcg/actuation mist for inhalation lancets 33 gauge #100 ea 11/20/19 07/10/20 potassium chloride 20 mEq 20 meq PO BID 11/20/19 07/10/20 tablet,extended release(part/cryst) risperidone 0.5 mg tablet 0.5 mg PO BID 11/20/19 07/10/20 zolpidem 10 mg tablet 10 mg PO BEDTIME PRN 11/20/19 07/10/20 omeprazole 20 mg capsule,delayed 20 mg PO BID 11/23/19 07/10/20 release fluticasone 250 mcg-salmeterol 50 ea INHALATION 01/11/20 07/10/20 mcg/dose blistr powdr for inhalation clonazepam 1 mg tablet 1 mg PO BEDTIME 03/08/20 07/10/20 montelukast 10 mg tablet 10 mg PO DAILY 03/08/20 07/10/20 tramadol 50 mg tablet 50 mg PO BID PRN 03/08/20 07/10/20 acetaminophen 325 mg tablet 650 mg PO QID tab 07/03/20 07/10/20 meclizine 25 mg tablet 25 mg PO PRN tab 07/10/20 07/10/20 Previous Rx's Medication Instructions Recorded gabapentin 400 mg capsule 400 mg PO BID #60 cap 02/22/20 leg brace #2 ea 03/08/20 Culturelle 10 billion cell capsule 1 cap PO DAILY 30 Days #30 cap NS 04/14/20 glucose 4 gram chewable tablet 16 g PO Q15M PRN 30 Days #30 tab 04/20/20 Lactobacillus rhamnosus GG 10 1 cap PO DAILY 30 Days #30 cap 04/26/20 billion cell capsule fluconazole 150 mg tablet 150 mg PO ONCE 1 Days #2 tab 05/09/20 miconazole nitrate 2 % vaginal 1 appful VAGINAL BEDTIME 7 Days 05/09/20 cream #45 g amoxicillin 500 mg-potassium 1 tab PO TID 7 Days #21 tab 05/18/20 clavulanate 125 mg tablet bisacodyl 5 mg tablet,delayed See Rx Instructions PO BEDTIME 30 05/22/20 release Days #90 tab docusate sodium 100 mg capsule 100 mg PO BID 30 Days #60 cap 05/22/20 plecanatide 3 mg tablet 3 mg PO DAILY 30 Days #30 tab 05/22/20 hydrocortisone 2.5 % topical cream 1 appl ID BID PRN #30 g 05/23/20 with perineal applicator doxycycline hyclate 100 mg PO BID #14 tab 06/11/20 cholecalciferol (vitamin D3) 50 50 mcg PO QAM #30 cap 06/19/20 mcg (2,000 unit) capsule dextrose 40 % oral gel 10 g PO Q15M PRN 30 Days #37.5 g 06/23/20 albuterol sulfate 2 puff INHALATION Q6H PRN #8.5 g 07/04/20 benzonatate [Tessalon Perles] 100 mg PO TID PRN #15 cap 07/04/20 cephalexin 500 mg PO BID 10 Days #20 cap 07/05/20 levothyroxine 75 mcg tablet 75 mcg PO DAILY 90 Days #90 tab 07/10/20 metformin 500 mg tablet,extended 500 mg PO DAILY 30 Days #30 tab 07/10/20 release 24 hr omalizumab 150 mg/mL subcutaneous 300 mg SUBCUT Q2W #2 ml 07/10/20 syringe pravastatin 80 mg tablet 80 mg PO BEDTIME 30 Days #30 tab 07/10/20 tiotropium 2.5 mcg-olodaterol 2.5 2 puff INHALATION DAILY 30 Days #1 07/18/20 mcg/actuation mist for inhalation ea <RAYMUNDO Nova - Last Filed: 07/04/20 16:51> Allergies/Adverse Reactions: Allergies Allergy/AdvReac Type Severity Reaction Status Date / Time aspirin [Aspirin] Allergy Mild ITCHY Verified 07/03/20 15:43 THROAT azithromycin Allergy Unknown Unknown Verified 07/03/20 15:43 naproxen Allergy Unknown Unknown Verified 07/03/20 15:43 simvastatin Allergy Unknown Unknown Verified 07/03/20 15:43 onion [ONION] AdvReac Mild RED FACE Verified 07/03/20 15:43 <RAYMUNDO Nova Last Filed: 07/04/20 16:51> Review of Systems Review of Systems: Yes all other systems are reviewed and are negative <RAYMUNDO Nova Last Filed: 07/04/20 16:51> Constitutional: Constitutional: Reports as per HPI and Reports no additional constitutional complaints <RAYMUNDO Nova Last Filed: 07/04/20 16:51> Eyes: Eyes: Reports as per HPI and Reports no additional eye complaints <RAYMUNDO Nova Last Filed: 07/04/20 16:51> ENT: Reports system reviewed and no additional complaints, except as documented and Reports as per HPI <RAYMUNDO Nova Last Filed: 07/04/20 16:51> Cardiovascular: Cardiovascular: Reports as per HPI, Reports no additional cardiovascular complaints, Reports chest pain (Right-sided) and Reports dyspnea <RAYMUNDO Nova Last Filed: 07/04/20 16:51> Respiratory: Respiratory: Reports as per HPI, Reports no additional respiratory complaints, Reports cough, Reports pain on inspiration and Reports dyspnea <RAYMUNDO Nova Last Filed: 07/04/20 16:51> Gastrointestinal: Gastrointestinal: Reports as per HPI and Reports no additional gastrointestinal complaints <RAYMUNDO Nova Last Filed: 07/04/20 16:51> Genitourinary: Genitourinary: Reports no additional female genitourinary complaints and Reports as per HPI <RAYMUNDO Nova Last Filed: 07/04/20 16:51> Musculoskeletal: Musculoskeletal: Reports no additional musculoskeletal complaints and Reports as per HPI <RAYMUNDO Nova Last Filed: 07/04/20 16:51> Neurologic: Reports system reviewed and no additional complaints, except as documented and Reports as per HPI <RAYMUNDO Nova Last Filed: 07/04/20 16:51> Psychiatric: Psychiatric: Reports no additional psychiatric complaints and Reports as per HPI <RAYMNUDO Nova Last Filed: 07/04/20 16:51> PMFSH Past Medical History Medical History: Medical History (Updated 07/05/20 @ 00:02 by Doris Guo) Bronchitis Cocaine abuse COPD exacerbation DVT (deep venous thrombosis) Hypothyroidism Low vitamin D level Menometrorrhagia Non-toxic multinodular goiter Spondylosis of cervical region without myelopathy or radiculopathy <RAYMUNDO Nova - Last Filed: 07/04/20 16:51> Surgical History: Surgical History H/O colonoscopy with polypectomy History of esophagogastroduodenoscopy (EGD) History of hysterectomy History of lithotripsy History of selective injection of anesthetic agent around lumbar nerve root Hx of right breast biopsy <RAYMUNDO Nova - Last Filed: 07/04/20 16:51> Family History Family History: Family History Father No problems noted. Mother Myocardial infarction CVA (cerebral vascular accident) <RAYMUNDO Nova - Last Filed: 07/04/20 16:51> Social History Social History: Social History (Updated 05/22/20 @ 10:03 by LIZET Tillman) Household Members: None Alcohol intake: never Current occupational status: disabled <RAYMUNDO Nova - Last Filed: 07/04/20 16:51> Physical Exam Vital Signs: Vital Signs: Last Vital Signs Temp 97.8 F 07/04/20 15:36 Pulse 76 07/04/20 15:36 Resp 16 07/04/20 15:36 BP 134/88 07/04/20 15:36 Pulse Ox 99 07/04/20 15:36 Body Mass Index 40.4 <RAYMUNDO Nova - Last Filed: 07/04/20 16:51> Vital Signs: Last Vital Signs Temp 97.8 F 07/04/20 15:36 Pulse 76 07/04/20 15:36 Resp 16 07/04/20 15:36 BP 134/88 07/04/20 15:36 Pulse Ox 99 07/04/20 15:36 Body Mass Index 40.4 <Juan Ramon Vickers MD - Last Filed: 07/27/20 01:43> Const: General: cooperative, healthy appearing, comfortable, no acute distress, well developed, alert, awake and Physically active <Derian Aeljandro, PA Last Filed: 07/04/20 16:51> Orientation/consciousness: patient oriented x3 <Derian Alejandro, [facility] Last Filed: 07/04/20 16:51> HENMT: Head: Yes normal to inspection, Yes No palpable skull fracture present, Yes normocephalic and Yes atraumatic <Derian Alejandro, PA Last Filed: 07/04/20 16:51> Eyes: General: appearance normal, both eyes and all related structures <Derian Alejandro, [facility] Last Filed: 07/04/20 16:51> Neck: Neck: Yes normal visual inspection, Yes full ROM, Yes no lymphadenopathy, Yes no meningeal signs, Yes trachea midline, Yes supple and No tender <Derian Alejandro, PA Last Filed: 07/04/20 16:51> Chest: Other: Positive for right chest wall tenderness on palpation <Derian Alejandro, [facility] Last Filed: 07/04/20 16:51> Chest palpation & inspection: normal inspection of the chest <Derian Alejandro, [facility] Last Filed: 07/04/20 16:51> Resp: Other: Positive for pleurisy <Derian Alejandro, [facility] Last Filed: 07/04/20 16:51> Effort & Inspection: normal respiratory effort and able to speak in complete sentences <Derian Alejandro, [facility] Filed: 07/04/20 16:51> Auscultation: clear to auscultation bilaterally <Derian Alejandro, PA Filed: 07/04/20 16:51> Cardio: Jugular venous distension: no JVD <Derian Alejandro, [facility] Last Filed: 07/04/20 16:51> Heart sounds: S1 normal heart sound present and S2 normal heart sound present <RAYMUNDO Noav Last Filed: 07/04/20 16:51> GI: Inspection: Yes normal to inspection <RAYMUNDO Nova Filed: 07/04/20 16:51> Palpation (GI): Soft to palpation, not firm, nontender, no guarding and not rigid <RAYMUNDO Nvoa Last Filed: 07/04/20 16:51> : General: No CVA tenderness and Yes no CVA tenderness <RAYMUNDO Nova Last Filed: 07/04/20 16:51> Back/Spine/Pelvis: Back: no CVA tenderness, No CVA tenderness and No back tenderness <RAYMUNDO Nova - Last Filed: 07/04/20 16:51> Skin: General skin exam: no rashes or lesions noted and elasticity normal <RAYMUNDO Nova Last Filed: 07/04/20 16:51> Neuro: General: patient oriented x3, gait normal, no meningeal signs and CN's II-XI intact bilaterally <RAYMUNDO Nova Last Filed: 07/04/20 16:51> Cranial nerves: Yes CN's II-XII intact bilaterally <RAYMUNDO Nova Last Filed: 07/04/20 16:51> Extrem: Other: Lower extremities negative for swelling, pain edema, calf tenderness <RAYMUNDO Nova Last Filed: 07/04/20 16:51> Psych: Appearance: grossly normal and well kempt <RAYMUNDO Nova Last Filed: 07/04/20 16:51> Course Course Course Narrative: Patient will have a cardiac evaluation which will include troponin BNP. Patient have a chest x-ray to rule out pneumonia. Patient also have a SARS COVID swab sent. <RAYMUNDO Nova - Last Filed: 07/04/20 16:51> I have reviewed the chart <Juan Ramon Vickers MD - Last Filed: 07/27/20 01:43> Reevaluation(s) Reevaluation #1: EKG negative for STEMI. EKG shows sinus rhythm with first-degree AV block. Troponin negative after 3 days of right-sided chest pain. Chest x-ray negative for pneumonia. COVID swab negative for COVID. BNP negative for CHF. Was sent for chest CT to rule out PE due to history of DVT and now having hemoptysis right-sided chest pain and pleuritic chest pain. <RAYMUNDO Nova Last Filed: 07/04/20 16:51> Reevaluation #2: Chest CT came back negative for PE. Diagnosis bronchitis. Discharged with antibiotics. <RAYMUNDO Nova Last Filed: 07/04/20 16:51> MDM - Chest Pain MDM Narrative Medical decision making narrative: Bronchitis <RAYMUNDO Nova - Last Filed: 07/04/20 16:51> Lab Data Result diagrams: : 07/04/20 11:06 07/04/20 11:06 <RAYMUNDO Nova - Last Filed: 07/04/20 16:51> Labs: Lab Results 07/04/20 07/04/20 07/04/20 Range/Units 11:06 11:06 11:06 WBC 5.6 (4.8-10.8) X10*3/uL RBC 4.21 (4.20-5.50) X10*6/uL Hgb 13.2 (12.0-16.0) g/dl Hct 39.3 (37-47) % MCV 93.3 (80-98) fL MCH 31.4 (27.0-33.0) pg MCHC 33.6 (31.0-35.0) g/dl RDW 13.5 (11.0-16.0) % Plt Count 265 (160-400) X10*3/uL MPV 9.9 (9.4-12.3) fL Immature Gran % (Auto) 0.2 (0.0-0.4) % Neut % (Auto) 49.1 (45-73) % Lymph % (Auto) 39.9 (20-40) % [place] % (Auto) 7.6 (2-11) % Eos % (Auto) 2.8 (0-4) % Baso % (Auto) 0.4 (0-2) % Lymph # (Auto) 2.3 (1.2-4.9) X10*3/uL [place] # (Auto) 0.4 (0.1-1.2) X10*3/uL Eos # (Auto) 0.2 (0.0-0.4) X10*3/uL Baso # (Auto) 0.0 (0.0-0.2) X10*3/uL Abs Immat Gran (auto) 0.01 (0.00-0.03) X10*3/uL Absolute Neuts (auto) 2.8 (2.0-8.3) X10*3/uL Absolute Nucleated RBC 0.000 (0.0-0.012) X10*3/uL Nucleated RBC % (auto) 0.0 (0.0-0.2) /100WBC PT 11.7 (10.8-13.0) SEC INR 1.0 (0.9-1.1) APTT 38.0 (24.1-38.0) SEC Sodium 141 (135-145) mmol/L Potassium 3.6 D (3.3-5.1) mmol/L Chloride 110 H (96-108) mmol/L Carbon Dioxide 23 (22-29) mmol/L Anion Gap 12 (12-20) BUN 17 H (9-16) mg/dL Creatinine 0.81 (0.5-1.4) mg/dL Estim Creat Clear Calc 79.6 Estimated GFR > 60 Random Glucose 151 H D (60-115) mg/dL Calcium 8.8 D (8.4-10.2) mg/dL Total Bilirubin 0.4 (0.0-1.0) mg/dL Direct Bilirubin < 0.2 (0.0-0.5) mg/dL AST 21 (5-31) U/L ALT 16 (0-31) U/L Alkaline Phosphatase 88 (39-117) U/L Troponin I High Sens (<3.5-17.0) ng/L B-Natriuretic Peptide (<100) pg/mL Total Protein 6.6 (6.5-8.0) g/dL Albumin 3.9 (3.5-5.0) g/dL Lipase 20 (8-78) U/L Coronavirus (PCR) (Negative) Influenza Type A (PCR) (Negative) Influenza Type B (PCR) (Negative) RSV RNA Qual (PCR) (Negative) 07/04/20 07/04/20 Range/Units 11:06 11:06 WBC (4.8-10.8) X10*3/uL RBC (4.20-5.50) X10*6/uL Hgb (12.0-16.0) g/dl Hct (37-47) % MCV (80-98) fL MCH (27.0-33.0) pg MCHC (31.0-35.0) g/dl RDW (11.0-16.0) % Plt Count (160-400) X10*3/uL MPV (9.4-12.3) fL Immature Gran % (Auto) (0.0-0.4) % Neut % (Auto) (45-73) % Lymph % (Auto) (20-40) % [place] % (Auto) (2-11) % Eos % (Auto) (0-4) % Baso % (Auto) (0-2) % Lymph # (Auto) (1.2-4.9) X10*3/uL [place] # (Auto) (0.1-1.2) X10*3/uL Eos # (Auto) (0.0-0.4) X10*3/uL Baso # (Auto) (0.0-0.2) X10*3/uL Abs Immat Gran (auto) (0.00-0.03) X10*3/uL Absolute Neuts (auto) (2.0-8.3) X10*3/uL Absolute Nucleated RBC (0.0-0.012) X10*3/uL Nucleated RBC % (auto) (0.0-0.2) /100WBC PT (10.8-13.0) SEC INR (0.9-1.1) APTT (24.1-38.0) SEC Sodium (135-145) mmol/L Potassium (3.3-5.1) mmol/L Chloride (96-108) mmol/L Carbon Dioxide (22-29) mmol/L Anion Gap (12-20) BUN (9-16) mg/dL Creatinine (0.5-1.4) mg/dL Estim Creat Clear Calc Estimated GFR Random Glucose (60-115) mg/dL Calcium (8.4-10.2) mg/dL Total Bilirubin (0.0-1.0) mg/dL Direct Bilirubin (0.0-0.5) mg/dL AST (5-31) U/L ALT (0-31) U/L Alkaline Phosphatase (39-117) U/L Troponin I High Sens < 3.5 (<3.5-17.0) ng/L B-Natriuretic Peptide 52 (<100) pg/mL Total Protein (6.5-8.0) g/dL Albumin (3.5-5.0) g/dL Lipase (8-78) U/L Coronavirus (PCR) NEGATIVE (Negative) Influenza Type A (PCR) NEGATIVE (Negative) Influenza Type B (PCR) NEGATIVE (Negative) RSV RNA Qual (PCR) NEGATIVE (Negative) <RAYMUNDO Nova - Last Filed: 07/04/20 16:51> Lab Results 07/04/20 07/04/20 07/04/20 Range/Units 11:06 11:06 11:06 WBC 5.6 (4.8-10.8) X10*3/uL RBC 4.21 (4.20-5.50) X10*6/uL Hgb 13.2 (12.0-16.0) g/dl Hct 39.3 (37-47) % MCV 93.3 (80-98) fL MCH 31.4 (27.0-33.0) pg MCHC 33.6 (31.0-35.0) g/dl RDW 13.5 (11.0-16.0) % Plt Count 265 (160-400) X10*3/uL MPV 9.9 (9.4-12.3) fL Immature Gran % (Auto) 0.2 (0.0-0.4) % Neut % (Auto) 49.1 (45-73) % Lymph % (Auto) 39.9 (20-40) % [place] % (Auto) 7.6 (2-11) % Eos % (Auto) 2.8 (0-4) % Baso % (Auto) 0.4 (0-2) % Lymph # (Auto) 2.3 (1.2-4.9) X10*3/uL [place] # (Auto) 0.4 (0.1-1.2) X10*3/uL Eos # (Auto) 0.2 (0.0-0.4) X10*3/uL Baso # (Auto) 0.0 (0.0-0.2) X10*3/uL Abs Immat Gran (auto) 0.01 (0.00-0.03) X10*3/uL Absolute Neuts (auto) 2.8 (2.0-8.3) X10*3/uL Absolute Nucleated RBC 0.000 (0.0-0.012) X10*3/uL Nucleated RBC % (auto) 0.0 (0.0-0.2) /100WBC PT 11.7 (10.8-13.0) SEC INR 1.0 (0.9-1.1) APTT 38.0 (24.1-38.0) SEC Sodium 141 (135-145) mmol/L Potassium 3.6 D (3.3-5.1) mmol/L Chloride 110 H (96-108) mmol/L Carbon Dioxide 23 (22-29) mmol/L Anion Gap 12 (12-20) BUN 17 H (9-16) mg/dL Creatinine 0.81 (0.5-1.4) mg/dL Estim Creat Clear Calc 79.6 Estimated GFR > 60 Random Glucose 151 H D (60-115) mg/dL Calcium 8.8 D (8.4-10.2) mg/dL Total Bilirubin 0.4 (0.0-1.0) mg/dL Direct Bilirubin < 0.2 (0.0-0.5) mg/dL AST 21 (5-31) U/L ALT 16 (0-31) U/L Alkaline Phosphatase 88 (39-117) U/L Troponin I High Sens (<3.5-17.0) ng/L B-Natriuretic Peptide (<100) pg/mL Total Protein 6.6 (6.5-8.0) g/dL Albumin 3.9 (3.5-5.0) g/dL Lipase 20 (8-78) U/L Coronavirus (PCR) (Negative) Influenza Type A (PCR) (Negative) Influenza Type B (PCR) (Negative) RSV RNA Qual (PCR) (Negative) 07/04/20 07/04/20 Range/Units 11:06 11:06 WBC (4.8-10.8) X10*3/uL RBC (4.20-5.50) X10*6/uL Hgb (12.0-16.0) g/dl Hct (37-47) % MCV (80-98) fL MCH (27.0-33.0) pg MCHC (31.0-35.0) g/dl RDW (11.0-16.0) % Plt Count (160-400) X10*3/uL MPV (9.4-12.3) fL Immature Gran % (Auto) (0.0-0.4) % Neut % (Auto) (45-73) % Lymph % (Auto) (20-40) % [place] % (Auto) (2-11) % Eos % (Auto) (0-4) % Baso % (Auto) (0-2) % Lymph # (Auto) (1.2-4.9) X10*3/uL [place] # (Auto) (0.1-1.2) X10*3/uL Eos # (Auto) (0.0-0.4) X10*3/uL Baso # (Auto) (0.0-0.2) X10*3/uL Abs Immat Gran (auto) (0.00-0.03) X10*3/uL Absolute Neuts (auto) (2.0-8.3) X10*3/uL Absolute Nucleated RBC (0.0-0.012) X10*3/uL Nucleated RBC % (auto) (0.0-0.2) /100WBC PT (10.8-13.0) SEC INR (0.9-1.1) APTT (24.1-38.0) SEC Sodium (135-145) mmol/L Potassium (3.3-5.1) mmol/L Chloride (96-108) mmol/L Carbon Dioxide (22-29) mmol/L Anion Gap (12-20) BUN (9-16) mg/dL Creatinine (0.5-1.4) mg/dL Estim Creat Clear Calc Estimated GFR Random Glucose (60-115) mg/dL Calcium (8.4-10.2) mg/dL Total Bilirubin (0.0-1.0) mg/dL Direct Bilirubin (0.0-0.5) mg/dL AST (5-31) U/L ALT (0-31) U/L Alkaline Phosphatase (39-117) U/L Troponin I High Sens < 3.5 (<3.5-17.0) ng/L B-Natriuretic Peptide 52 (<100) pg/mL Total Protein (6.5-8.0) g/dL Albumin (3.5-5.0) g/dL Lipase (8-78) U/L Coronavirus (PCR) NEGATIVE (Negative) Influenza Type A (PCR) NEGATIVE (Negative) Influenza Type B (PCR) NEGATIVE (Negative) RSV RNA Qual (PCR) NEGATIVE (Negative) <Juan Ramon Vickers MD - Last Filed: 07/27/20 01:43> ECG Data ECG #1: Interpretation: Sinus rhythm with first-degree AV block. Ventricular rate 91. Pr interval 210. QRS 98. QTC 474. Negative STEMI. <RAYMUNDO Nova - Last Filed: 07/04/20 16:51> Discharge Plan Discharge Clinical Impression: Bronchitis <RAYMUNDO Nova Last Filed: 07/04/20 16:51> Patient Disposition: Home, Self-Care <RAYMUNDO Nova Last Filed: 07/04/20 16:51> Instructions: Acute Bronchitis (ED) <RAYMUNDO Nova Last Filed: 07/04/20 16:51> Additional Instructions: Regrese al servicio de urgencias si tiene dolor de pecho, dificultad para respirar, debilidad, mareos, dolor en la pantorrilla, hinchaz?n de las piernas, dificultad para respirar al hacer ejercicio o cualquier otro s?ntoma que le preocupe. Tus laboratorios volvieron normales. El electrocardiograma volvi? a la normalidad. La troponina result? negativa. El hisopo COVID result? negativo. La radiograf?a de t?rax result? negativa para neumon?a. Y la ATC de t?rax result? negativa para embolia pulmonar. <RAYMUNDO Nova - Last Filed: 07/04/20 16:51> Prescriptions: New albuterol sulfate 90 mcg/actuation HFA aerosol inhaler 2 puff inhalation Q6H PRN (Reason: bronchitis) Qty: 8.5 RF: 0 benzonatate [Tessalon Perles] 100 mg capsule 100 mg PO TID PRN (Reason: cough) Qty: 15 RF: 0 cephalexin 500 mg capsule 500 mg PO BID 10 Days Qty: 20 RF: 0 No Action gabapentin 400 mg capsule 400 mg PO BID Qty: 60 RF: 5 Culturelle 10 billion cell capsule 1 cap PO DAILY 30 Days Qty: 30 RF: 3 glucose [Dex4 Glucose] 4 gram tablet,chewable 16 g PO Q15M PRN (Reason: hypoglycemia) 30 Days Qty: 30 RF: 5 Culturelle 10 billion cell capsule 1 cap PO DAILY 30 Days Qty: 30 RF: 6 hydrocortisone [Proctosol HC] 2.5 % cream with perineal applicator 1 appl ID BID PRN (Reason: hemorrhoids) Qty: 30 RF: 6 cholecalciferol (vitamin D3) 50 mcg (2,000 unit) capsule 50 mcg PO QAM Qty: 30 RF: 3 dextrose [Dex4 Glucose] 40 % gel 10 g PO Q15M PRN (Reason: hypoglycemia) 30 Days Qty: 37.5 RF: 5 omalizumab 150 mg/mL syringe 300 mg subcut Q2W Qty: 2 RF: 12 Stiolto Respimat 2.5-2.5 mcg/actuation mist 2 puff inhalation DAILY 30 Days Qty: 1 RF: 6 doxycycline hyclate 100 mg tablet,delayed release (DR/EC) 100 mg PO BID Qty: 14 RF: 0 fluticasone propion-salmeterol 250-50 mcg/dose blister with device inhalation RF: 0 tramadol 50 mg tablet 50 mg PO BID PRNRF: 0 montelukast 10 mg tablet 10 mg PO DAILY RF: 0 clonazepam [Klonopin] 1 mg tablet 1 mg PO BEDTIME RF: 0 (DME) Knee Support Brace Misc See Rx Instructions .ROUTE .MEDSUPPLY Qty: 2 RF: 0 Trulance 3 mg tablet 3 mg PO DAILY 30 Days Qty: 30 RF: 5 bisacodyl [Dulcolax (bisacodyl)] 5 mg tablet,delayed release (DR/EC) See Rx Instructions PO BEDTIME 30 Days Qty: 90 RF: 6 docusate sodium 100 mg capsule 100 mg PO BID 30 Days Qty: 60 RF: 4 levothyroxine 75 mcg tablet 75 mcg PO DAILY 90 Days Qty: 90 RF: 2 metformin 500 mg tablet extended release 24 hr 500 mg PO DAILY 30 Days Qty: 30 RF: 6 pravastatin 80 mg tablet 80 mg PO BEDTIME 30 Days Qty: 30 RF: 6 fluconazole 150 mg tablet 150 mg PO ONCE 1 Days Qty: 2 RF: 6 miconazole nitrate [Miconazole 7] 2 % cream 1 appful vaginal BEDTIME 7 Days Qty: 45 RF: 6 glucose 4 gram tablet,chewable 16 g PO RF: 0 ipratropium-albuterol 0.5 mg-3 mg(2.5 mg base)/3 mL solution for nebulization inhalation Q6H PRNRF: 0 alcohol swabs Pads, Medicated topical DAILY RF: 0 zolpidem 10 mg tablet 10 mg PO BEDTIME PRNRF: 0 buspirone 5 mg tablet 5 mg PO BID RF: 0 fluticasone propionate 50 mcg/actuation spray,suspension 1 spray intranasal BID RF: 0 risperidone 0.5 mg tablet 0.5 mg PO BID RF: 0 albuterol sulfate 90 mcg/actuation HFA aerosol inhaler 2 puff PO QID RF: 0 amlodipine 10 mg tablet 10 mg PO BEDTIME RF: 0 enalapril maleate 10 mg tablet 10 mg PO QAM RF: 0 cyclobenzaprine 10 mg tablet 10 mg PO DAILY PRNRF: 0 Combivent Respimat 20-100 mcg/actuation mist 1 puff PO QID RF: 0 (DME) lancets 33 gauge misc See Rx Instructions ea Not Applicable DAILY Qty: 100 RF: 0 Flovent HFA 220 mcg/actuation HFA aerosol inhaler 1 puff PO BID RF: 0 (DME) FreeStyle Lite Strips Strip See Rx Instructions ea Not Applicable DAILY Qty: 10 RF: 0 calcium carbonate-vitamin D3 600 mg(1,500mg) -400 unit tablet 1 tab PO BID RF: 0 potassium chloride 20 mEq tablet,ER particles/crystals 20 meq PO BID RF: 0 cetirizine 10 mg tablet 10 mg PO BEDTIME RF: 0 (DME) blood-glucose meter Kit See Rx Instructions ea .ROUTE DAILY Qty: 1 RF: 0 omeprazole 20 mg capsule,delayed release(DR/EC) 20 mg PO BID RF: 0 acetaminophen 325 mg tablet 650 mg PO QID RF: 0 meclizine 25 mg tablet 25 mg PO PRN (Reason: dizziness) RF: 0 amoxicillin-pot clavulanate [Augmentin] 500-125 mg tablet 1 tab PO TID 7 Days Qty: 21 RF: 0 <RAYMUNDO Nova - Last Filed: 07/04/20 16:51> Referrals: Vickers,Sariah, HEDIS MANAGER [Primary Care Provider] - 2 days (Bronchitis.) <RAYMUNDO Nova - Last Filed: 07/04/20 16:51> Interventions: ED Discharge Assessment Last Done: 07/04/20 16:44 <RAYMUNDO Nova - Last Filed: 07/04/20 16:51> Discharge Date/Time: 07/04/20 16:46 <RAYMUNDO Nova - Last Filed: 07/04/20 16:51> Print Language: [place] <RAYMUNDO Nova - Last Filed: 07/04/20 16:51>
--- NOTE | 2020-07-04 11:09 | PC.NURSE ---
IV placed and labs obtained. Pt resting in bed quietly
[2020-07-04 11:11] LABS: MANUAL DIFF FLAG NO
[2020-07-04 11:14] LABS: Basophils Percent Auto 0.4 % (0-2); Eosinophils Absolute Auto 0.2 X10*3/uL (0.0-0.4); Eosinophils Percent Auto 2.8 % (0-4); Hematocrit 39.3 % (37-47); Hemoglobin 13.2 g/dl (12.0-16.0); Imm Gran Abs Auto 0.01 X10*3/uL (0.00-0.03); Imm Gran Pct Auto 0.2 % (0.0-0.4); Lymphocytes Absolute Auto 2.3 X10*3/uL (1.2-4.9); Lymphocytes Percent Auto 39.9 % (20-40); Mean Corpuscular HGB Conc 33.6 g/dl (31.0-35.0); Mean Corpuscular Hemoglobin 31.4 pg (27.0-33.0); Mean Corpuscular Volume 93.3 fL (80-98); Mean Platelet Volume 9.9 fL (9.4-12.3); Monocytes Absolute Auto 0.4 X10*3/uL (0.1-1.2); Monocytes Percent Auto 7.6 % (2-11); Neutrophils Absolute Auto 2.8 X10*3/uL (2.0-8.3); Neutrophils Percent Auto 49.1 % (45-73); Platelet Count 265 X10*3/uL (160-400); Red Blood Count 4.21 X10*6/uL (4.20-5.50); Red Cell Distribution Width 13.5 % (11.0-16.0); White Blood Count 5.6 X10*3/uL (4.8-10.8)
[2020-07-04 11:20] LABS: Prothrombin Time 11.7 SEC (10.8-13.0)
[2020-07-04 11:38] LABS: Alanine Aminotransferase 16 U/L (0-31); Albumin Level 3.9 g/dL (3.5-5.0); Alkaline Phosphatase 88 U/L (39-117); Anion Gap 12 (12-20); Aspartate Amino Transferase 21 U/L (5-31); Bilirubin Direct < 0.2 mg/dL (0.0-0.5); Bilirubin Total 0.4 mg/dL (0.0-1.0); Blood Urea Nitrogen 17 mg/dL (9-16); Calcium 8.8 mg/dL (8.4-10.2); Carbon Dioxide 23 mmol/L (22-29); Chloride 110 mmol/L (96-108); Creatinine Clr Calc Pharmacy 79.6; Estimated Glomerular Filt Rate > 60; Glucose Random 151 mg/dL (60-115); Lipase 20 U/L (8-78); Potassium 3.6 mmol/L (3.3-5.1); Sodium 141 mmol/L (135-145); Total Protein 6.6 g/dL (6.5-8.0)
[2020-07-04 11:43] LABS: B Type Natriuretic Peptide 52 pg/mL (<100); Troponin-I High Sensitivity < 3.5 ng/L (<3.5-17.0)
[2020-07-04 12:00] VITALS: BP 139/92; PULSE 74; RESP 18; O2SAT 95
[2020-07-04 12:47] VITALS: PULSE 76
--- NOTE | 2020-07-04 13:04 | PC.NURSE ---
Pt resting quietly. Awaiting CT scan of the chest.
[2020-07-04 14:09] LABS: Influenza A PCR NEGATIVE (Negative); Influenza B PCR NEGATIVE (Negative); Resp Syncy Virus RNA Qual PCR NEGATIVE (Negative); SARS COV2 PCR INHOUSE NEGATIVE (Negative)
[2020-07-04] MEDS: iohexoL 350 MG/ML 100 ML INFUS..BTL IV (15:01)
[2020-07-04 15:36] VITALS: BP 134/88; PULSE 76; RESP 16; TEMP 36.6; O2SAT 99
--- NOTE | 2020-07-04 16:13 | PC.NURSE ---
pt becomes more and more irriated. Slovak-speaking staff pulled to bedside to help with conversation. Pt visibly irritated that she has been waiting all day for this bullshit Per patient i want to go home. if i there so be it . Pt now calling for ride. Per patient I'll only wait a few more minutes then i'll pull out my IV myself. MLP aware.
== END 2020-07-04 16:46 | disposition home or self-care (01) ==
PROVIDERS: Physician Assistant; Emergency Provider Emergency Medicine; PCP Nurse Practitioner Primary Care
DX: J20.9 Acute bronchitis, unspecified (principal); R07.9 Chest pain, unspecified; Z20.822 Contact with and (suspected) exposure to COVID-19; I10 Essential (primary) hypertension; E11.9 Type 2 diabetes mellitus without complications; E78.5 Hyperlipidemia, unspecified; F17.200 Nicotine dependence, unspecified, uncomplicated; Z79.02 Long term (current) use of antithrombotics/antiplatelets; Z79.84 Long term (current) use of oral hypoglycemic drugs; Z79.899 Other long term (current) drug therapy
CPT/HCPCS: 0241U; 36415; 71045; 71275; 80053; 80076; 82248; 83690; 83880; 84484; 85025; 85610; 85730; 93005; 99284; Q9967

== ENCOUNTER → 2020-07-10 13:07 | Outpatient (BNVA) | payer OTHER, SELFPAY | PROVIDERS: PCP Nurse Practitioner Primary Care; Visit Provider Internal Medicine Endocrinology, Diabetes & Metabolism | DX: E11.65 Type 2 diabetes mellitus with hyperglycemia (principal); E03.9 Hypothyroidism, unspecified; E04.2 Nontoxic multinodular goiter; I10 Essential (primary) hypertension; E78.00 Pure hypercholesterolemia, unspecified | CPT/HCPCS: 82947; 99212 ==

== ENCOUNTER 2020-07-14 09:31 | Outpatient (REF) | payer OTHER, SELFPAY | END 2020-07-14 09:32 | disposition home or self-care (01) | LOC: HO.MDS 09:31 | PROVIDERS: PCP Nurse Practitioner Primary Care; Visit Provider Internal Medicine Pulmonary Disease | DX: J45.50 Severe persistent asthma, uncomplicated (principal) | CPT/HCPCS: 96372; J2357 ==

== ENCOUNTER → 2020-07-18 13:04 | Outpatient (BNVA) | payer OTHER, SELFPAY | PROVIDERS: PCP Nurse Practitioner Primary Care; Visit Provider Dietitian, Registered | DX: Z13.89 Encounter for screening for other disorder (principal) | CPT/HCPCS: 97803 ==

== ENCOUNTER 2020-07-28 10:12 | Outpatient (REF) | payer OTHER, SELFPAY | END 2020-07-28 10:13 | disposition home or self-care (01) | LOC: HO.MDS 10:12 | PROVIDERS: PCP Nurse Practitioner Primary Care; Visit Provider Internal Medicine Pulmonary Disease | DX: J45.50 Severe persistent asthma, uncomplicated (principal) | CPT/HCPCS: 96372; J2357 ==

== ENCOUNTER → 2020-08-01 14:13 | Outpatient (BNVA) | payer OTHER, SELFPAY | PROVIDERS: PCP Nurse Practitioner Primary Care; Visit Provider Internal Medicine | DX: J44.1 Chronic obstructive pulmonary disease with (acute) exacerbation (principal); J40 Bronchitis, not specified as acute or chronic; J45.50 Severe persistent asthma, uncomplicated | CPT/HCPCS: 99212 ==

== ENCOUNTER → 2020-08-04 08:41 | Outpatient (BNVA) | payer OTHER, SELFPAY | PROVIDERS: PCP Nurse Practitioner Primary Care; Visit Provider Nurse Practitioner | DX: K21.9 Gastro-esophageal reflux disease without esophagitis (principal); K59.04 Chronic idiopathic constipation; K75.81 Nonalcoholic steatohepatitis (NASH); F41.8 Other specified anxiety disorders; B37.81 Candidal esophagitis; B37.0 Candidal stomatitis | CPT/HCPCS: Q3014 ==

== ENCOUNTER 2020-08-08 11:27 | Outpatient (REF) | payer OTHER, SELFPAY ==
[2020-08-08 13:47] LABS: Alanine Aminotransferase 14 U/L (0-31); Albumin Level 4.3 g/dL (3.5-5.0); Alkaline Phosphatase 85 U/L (39-117); Aspartate Amino Transferase 21 U/L (5-31); Bilirubin Direct < 0.2 mg/dL (0.0-0.5); Bilirubin Total 0.4 mg/dL (0.0-1.0)
[2020-08-08 14:09] LABS: TSH reflex Free T4 1.79 uIU/mL (0.32-4.0)
[2020-08-09 11:33] LABS: Alpha Fetoprotein 2.1 ng/mL
== END 2020-08-08 11:28 | disposition home or self-care (01) ==
LOC: HO.LAB 11:27
PROVIDERS: PCP Nurse Practitioner Primary Care; Visit Provider Nurse Practitioner
DX: K59.04 Chronic idiopathic constipation (principal); K75.81 Nonalcoholic steatohepatitis (NASH); F41.8 Other specified anxiety disorders
CPT/HCPCS: 36415; 80076; 82105; 84443

== ENCOUNTER 2020-08-08 11:53 | Emergency (ER) | payer OTHER, SELFPAY ==
--- NOTE | 2020-08-08 11:57 | ECG_ITS ---
Test Reason : CHEST PAIN Blood Pressure : / mmHG Vent. Rate : 073 BPM Atrial Rate : 073 BPM P-R Int : 210 ms QRS Dur : 098 ms QT Int : 398 ms P-R-T Axes : 042 -44 026 degrees QTc Int : 438 ms Sinus rhythm with 1st degree A-V block Left axis deviation Abnormal ECG When compared with ECG of 04-JUL-2020 10:32, No significant change was found Referred By: Generic ED Physician Electronically Signed By:Agus Denise
[2020-08-08 12:10] VITALS: BP 101/75; PULSE 67; RESP 18; TEMP 36.9; O2SAT 97; BMI 37.8
== END 2020-08-08 14:59 | disposition left against medical advice (07) ==
PROVIDERS: Emergency Provider Emergency Medicine; PCP Nurse Practitioner Primary Care
DX: R07.9 Chest pain, unspecified (principal)
CPT/HCPCS: 93005; 99282; 99283

== ENCOUNTER 2020-08-14 12:22 | Outpatient (REF) | payer OTHER, SELFPAY | END 2020-08-14 12:23 | disposition home or self-care (01) | LOC: HO.MDS 12:22 | PROVIDERS: PCP Nurse Practitioner Primary Care; Visit Provider Internal Medicine Pulmonary Disease | DX: J45.50 Severe persistent asthma, uncomplicated (principal) | CPT/HCPCS: J2357 ==

== ENCOUNTER 2020-08-16 06:05 | Outpatient (REF) | payer OTHER, SELFPAY ==
--- NOTE | ~2020-08-16 | FL_ITS ---
EXAMINATION: XR FLUOROSCOPY WITH IMAGES CLINICAL INFORMATION: M17.0 - Bilateral primary osteoarthritis of knee COMPARISON: Radiographs right knee 03/09/2020 TECHNIQUE: Fluoroscopy performed by Nicole Paiz NP. Fluoroscopy time: 0.3 minutes DAP: 0.814 Gycm2 Images: 3 FINDINGS: There are spinal needles overlying mid aspect distal femur and mid aspect proximal tibia, respectively. FL/FL guidance in treatment room IMPRESSION: Fluoroscopy for pain management procedures.
== END 2020-08-16 06:06 | disposition home or self-care (01) ==
LOC: HO.RADIR 06:05
PROVIDERS: Visit Provider Internal Medicine
DX: M17.0 Bilateral primary osteoarthritis of knee (principal)
CPT/HCPCS: 64450; 64454

== ENCOUNTER → 2020-08-24 09:45 | Outpatient (BNVA) | payer OTHER, SELFPAY | PROVIDERS: PCP Nurse Practitioner Primary Care; Visit Provider Surgery Vascular Surgery | DX: I83.12 Varicose veins of left lower extremity with inflammation (principal) | CPT/HCPCS: 99212 ==

== ENCOUNTER → 2020-08-25 10:31 | Outpatient (BNVA) | payer OTHER, SELFPAY | PROVIDERS: PCP Nurse Practitioner Primary Care; Visit Provider Internal Medicine | DX: M25.561 Pain in right knee (principal); M25.562 Pain in left knee; G89.29 Other chronic pain | CPT/HCPCS: Q3014 ==

== ENCOUNTER 2020-08-28 09:08 | Outpatient (REF) | payer OTHER, SELFPAY | END 2020-08-28 09:09 | disposition home or self-care (01) | LOC: HO.MDS 09:08 | PROVIDERS: PCP Nurse Practitioner Primary Care; Visit Provider Internal Medicine Pulmonary Disease | DX: J45.50 Severe persistent asthma, uncomplicated (principal) | CPT/HCPCS: 96372; J2357 ==

== ENCOUNTER 2020-09-05 12:53 | Outpatient (REF) | payer OTHER, SELFPAY ==
--- NOTE | ~2020-09-05 | XR_ITS ---
EXAMINATION: XR CHEST CLINICAL INFORMATION: COPD with acute exacerbation. COMPARISON: Multiple priors, most recent CTA chest dated 07/04/2020. TECHNIQUE: 2 views of the chest were obtained. FINDINGS: The lungs are clear. The cardiomediastinal silhouette is normal in size. There is no pleural effusion or pneumothorax. No acute osseous abnormality. XR/XR chest 2V IMPRESSION: No acute cardiopulmonary findings.
== END 2020-09-05 12:54 | disposition home or self-care (01) ==
LOC: HO.XRAY 12:53
PROVIDERS: PCP Nurse Practitioner Primary Care; Referring Provider Emergency Medicine; Visit Provider Internal Medicine Pulmonary Disease
DX: J44.1 Chronic obstructive pulmonary disease with (acute) exacerbation (principal); J45.50 Severe persistent asthma, uncomplicated; Z91.09 Other allergy status, other than to drugs and biological substances
CPT/HCPCS: 71046; 99212

== ENCOUNTER 2020-09-11 09:11 | Outpatient (REF) | payer OTHER, SELFPAY | END 2020-09-11 09:12 | disposition home or self-care (01) | LOC: HO.MDS 09:11 | PROVIDERS: PCP Nurse Practitioner Primary Care; Visit Provider Internal Medicine Pulmonary Disease | DX: J45.50 Severe persistent asthma, uncomplicated (principal) | CPT/HCPCS: 96372; J2357 ==

== ENCOUNTER → 2020-09-18 09:21 | Outpatient (BNVA) | payer OTHER, SELFPAY | PROVIDERS: PCP Nurse Practitioner Primary Care; Visit Provider Nurse Practitioner | CPT/HCPCS: Q3014 ==

== ENCOUNTER 2020-09-25 09:58 | Outpatient (REF) | payer OTHER, SELFPAY | END 2020-09-25 09:59 | disposition home or self-care (01) | LOC: HO.MDS 09:58 | PROVIDERS: PCP Nurse Practitioner Primary Care; Visit Provider Internal Medicine Pulmonary Disease | DX: J45.50 Severe persistent asthma, uncomplicated (principal) | CPT/HCPCS: 96372; J2357 ==

== ENCOUNTER 2020-09-29 09:47 | Emergency (ER) | payer OTHER, SELFPAY ==
--- NOTE | ~2020-09-29 | CT_ITS ---
EXAMINATION: CT ANGIOGRAM OF THE CHEST WITH AND WITHOUT CONTRAST (CT PULMONARY ANGIOGRAM FOR PE) CLINICAL INFORMATION: SOB, elevated D-dimer. COMPARISON: None TECHNIQUE: Prior to contrast administration, noncontrast localization images were obtained. Subsequently, multidetector volumetric imaging was performed from the thoracic inlet to below the diaphragms following the administration of 80 mL Omnipaque 350 intravenous contrast. No contrast reaction reported. Sagittal, coronal, and MIP oblique sagittal reformatted images were obtained on the CT workstation, uploaded to PACS, and reviewed. This CT examination was performed using dose optimization techniques as appropriate, variously including the following: Automated exposure control. Adjustment of mA and/or kV according to patient size (this includes techniques or standardized protocols for targeted exams where dose is matched to indication/reason for exam; i.e. extremities or head). Use of iterative reconstruction technique. Total exam dose-length product 389 mGy-cm FINDINGS: QUALITY OF STUDY/CONTRAST BOLUS: Satisfactory. PULMONARY ARTERIES: No central or segmental pulmonary emboli. THORACIC AORTA: No aneurysm or dissection. LUNG: The lungs are well expanded and clear of acute pneumonic process. There are no pulmonary nodules, mass or ground-glass density. There are minimal atelectatic changes visualized in the left lung base. There is a punctate 2 mm calcification left lower lobe centrally image 34/7. No atelectasis seen either. PLEURA: No pleural effusion or pneumothorax. MEDIASTINUM: Heart size is enlarged. No pericardial effusion seen. No abnormal size mediastinal or hilar lymph nodes. Central trachea and the bronchi is widely patent. No evidence of septal bowing or right heart strain. CHEST WALL/AXILLA: No axillary or internal mammary lymphadenopathy. OSSEOUS STRUCTURES: No acute or suspicious osseous abnormality. UPPER ABDOMEN: Visualized liver, spleen, pancreas and bilateral adrenal glands are unremarkable. There is a partially exophytic 1.3 cm complex cyst upper pole left kidney. No reflux of contrast into the hepatic veins to suggest elevated right heart pressures. CT/CT angio chest PE protocol IMPRESSION: No evidence of PE. No evidence of aortic dissection or aneurysm. Punctate 2 mm calcification left lower lobe. Minimal subpleural atelectasis left lower lobe. VTEC: Negative.
--- NOTE | ~2020-09-29 | XR_ITS ---
EXAMINATION: XR CHEST CLINICAL INFORMATION: Shortness of breath with cough COMPARISON: September 05, 2020 TECHNIQUE: AP portable view of the chest was obtained. FINDINGS: There is no evidence of acute parenchymal disease, pneumothorax, or pleural effusion. Heart normal size. No evidence of pulmonary edema. Linear scarring is seen at the left base. XR/XR chest 1V IMPRESSION: No acute disease.
--- NOTE | 2020-09-29 10:07 | ED_ITS ---
HPI - SOB/Dyspnea General Chief Complaint: Dyspnea Stated Complaint: sob Time Seen by Provider: 09/29/20 09:58 Source: patient Mode of arrival: ambulatory Limitations: no limitations History of Present Illness HPI Narrative: 6-year-old female with history of COPD, bronchitis, diabetes, presents with 4 days of coughing, feeling short of breath, and wheezing. Patient has not had fevers, but has had chills, and body aches. States she is using her nebulizer every 2 hours, but when I asked the last time she used her nebulizer she said it was yesterday. States she has had streaking of blood in her sputum. She was vaccinated for COVID, and had a negative COVID test last week. Patient had chest pain for short period 2 days ago. No leg swelling no sick contacts. No chest pain now. . MD elicited complaint: shortness of breath and cough Pertinent past history: COPD, asthma and diabetes Related Data Home Medications Medication Instructions Recorded Confirmed alcohol swabs pad TOPICAL DAILY 11/20/19 08/16/20 amlodipine 10 mg tablet 10 mg PO BEDTIME 11/20/19 08/16/20 blood sugar diagnostic #10 ea 11/20/19 08/16/20 blood-glucose meter #1 ea 11/20/19 08/16/20 buspirone 5 mg tablet 5 mg PO BID 11/20/19 08/16/20 calcium carbonate 600 mg (1,500 1 tab PO BID 11/20/19 08/16/20 mg)-vitamin D3 400 unit tablet cetirizine 10 mg tablet 10 mg PO BEDTIME 11/20/19 08/16/20 cyclobenzaprine 10 mg tablet 10 mg PO DAILY PRN 11/20/19 08/16/20 enalapril maleate 10 mg tablet 10 mg PO QAM 11/20/19 08/16/20 fluticasone propionate 220 1 puff PO BID 11/20/19 08/16/20 mcg/actuation HFA aerosol inhaler fluticasone propionate 50 1 spray INTRANASAL BID 11/20/19 08/16/20 mcg/actuation nasal spray,suspension glucose 4 gram chewable tablet 16 g PO 11/20/19 08/16/20 ipratropium 0.5 mg-albuterol 3 mg ml INHALATION Q6H PRN 11/20/19 08/16/20 (2.5 mg base)/3 mL nebulization soln lancets 33 gauge #100 ea 11/20/19 08/16/20 potassium chloride 20 mEq 20 meq PO BID 11/20/19 08/16/20 tablet,extended release(part/cryst) risperidone 0.5 mg tablet 0.5 mg PO BID 11/20/19 08/16/20 zolpidem 10 mg tablet 10 mg PO BEDTIME PRN 11/20/19 08/16/20 omeprazole 20 mg capsule,delayed 20 mg PO BID 11/23/19 08/16/20 release clonazepam 1 mg tablet (Klonopin) 1 mg PO BEDTIME 03/08/20 08/16/20 montelukast 10 mg tablet 10 mg PO DAILY 03/08/20 08/16/20 tramadol 50 mg tablet 50 mg PO BID PRN 03/08/20 08/16/20 acetaminophen 325 mg tablet 650 mg PO QID tab 07/03/20 08/16/20 meclizine 25 mg tablet 25 mg PO PRN tab 07/10/20 08/16/20 Previous Rx's Medication Instructions Recorded leg brace (Knee Support Brace) #2 ea 03/08/20 Culturelle 10 billion cell capsule 1 cap PO DAILY 30 Days #30 cap NS 04/14/20 (Lactobacillus rhamnosus GG) Lactobacillus rhamnosus GG 10 1 cap PO DAILY 30 Days #30 cap 04/26/20 billion cell capsule (Culturelle) bisacodyl 5 mg tablet,delayed See Rx Instructions PO BEDTIME 30 05/22/20 release (Dulcolax (bisacodyl)) Days #90 tab docusate sodium 100 mg capsule 100 mg PO BID 30 Days #60 cap 05/22/20 plecanatide 3 mg tablet (Trulance) 3 mg PO DAILY 30 Days #30 tab 05/22/20 cholecalciferol (vitamin D3) 50 50 mcg PO QAM #30 cap 06/19/20 mcg (2,000 unit) capsule albuterol sulfate 90 mcg/actuation 2 puff INHALATION Q6H PRN #8.5 g 07/04/20 aerosol inhaler benzonatate 100 mg capsule 100 mg PO TID PRN #15 cap 07/04/20 (Hilaria Garcia) levothyroxine 75 mcg tablet 75 mcg PO DAILY 90 Days #90 tab 07/10/20 metformin 500 mg tablet,extended 500 mg PO DAILY 30 Days #30 tab 07/10/20 release 24 hr omalizumab 150 mg/mL subcutaneous 300 mg SUBCUT Q2W #2 ml 07/10/20 syringe pravastatin 80 mg tablet 80 mg PO BEDTIME 30 Days #30 tab 07/10/20 gabapentin 400 mg capsule 400 mg PO BID #60 cap 08/15/20 tiotropium bromide 18 mcg capsule 1 cap INHALATION DAILY 30 Days #30 08/15/20 with inhalation device (Spiriva inh with HandiHaler) dextrose 40 % oral gel (Dex4 10 g PO Q15M PRN 30 Days #37.5 g 08/24/20 Glucose) hydrocortisone 2.5 % topical cream 1 appl NJ BID PRN #30 g 08/30/20 with perineal applicator (Proctosol HC) albuterol sulfate 90 mcg/actuation 2 puff INHALATION Q4-6H PRN #6.7 g 09/29/20 aerosol inhaler benzonatate 200 mg capsule 200 mg PO BID PRN 5 Days #10 cap 09/29/20 cephalexin 500 mg capsule 500 mg PO QID 7 Days #28 cap 09/29/20 Allergies Allergy/AdvReac Type Severity Reaction Status Date / Time aspirin [Aspirin] Allergy Mild ITCHY Verified 09/18/20 09:22 THROAT azithromycin Allergy Unknown Unknown Verified 09/18/20 09:22 naproxen Allergy Unknown Unknown Verified 09/18/20 09:22 simvastatin Allergy Unknown Unknown Verified 09/18/20 09:22 onion [ONION] AdvReac Mild RED FACE Verified 09/18/20 09:22 Review of Systems Constitutional: Constitutional: Reports body ache(s), Reports chills, Reports fatigue, Denies fever(s), Denies headache(s), Denies malaise and Denies weakness Eyes: Eyes: Denies diplopia ENT: Denies vertigo, Denies dizziness, Denies otalgia, Denies headache(s), Denies mouth pain, Denies post nasal drip, Denies sinus pain, Denies sinus pressure, Denies sore throat and Denies throat swelling Cardiovascular: Cardiovascular: Reports chest pain, Denies syncope, Denies leg edema, Denies lightheadedness, Denies palpitations and Reports dyspnea Respiratory: Respiratory: Reports chest congestion, Reports cough, Reports dyspnea and Reports wheezing Gastrointestinal: Gastrointestinal: Denies abdominal pain, Denies hematochezia, Denies constipation, Denies diarrhea and Denies vomiting Genitourinary: Genitourinary: Reports no additional female genitourinary complaints Musculoskeletal: Musculoskeletal: Reports myalgias Integumentary/Breasts: Skin/Breast: Denies erythema and Denies rash Neurologic: Denies confusion, Denies vertigo, Denies dizziness, Denies syncope, Denies headache(s) and Denies weakness Psychiatric: Psychiatric: Denies anxiety, Denies confusion and Denies depression Endocrine: Endocrine: Reports fatigue and Denies palpitations Allergic/Immunologic: Allergic/Immunologic: Denies throat swelling and Reports wheezing PMFSH Past Medical History Medical History Bronchitis Bronchitis Cocaine abuse COPD exacerbation DVT (deep venous thrombosis) Hypothyroidism Low vitamin D level Menometrorrhagia Non-toxic multinodular goiter Spondylosis of cervical region without myelopathy or radiculopathy Surgical History H/O colonoscopy with polypectomy History of esophagogastroduodenoscopy (EGD) History of hysterectomy History of lithotripsy History of selective injection of anesthetic agent around lumbar nerve root Hx of right breast biopsy Family History Family History Father No problems noted. Mother Myocardial infarction CVA (cerebral vascular accident) Social History Social History Household Members: None Alcohol intake: never Patient Tobacco Use Status: Never used Tobacco Current occupational status: disabled Physical Exam Vital Signs: Vital Signs: Last Vital Signs Temp 98.0 F 09/29/20 14:25 Pulse 78 09/29/20 14:25 Resp 18 09/29/20 14:25 BP 133/89 09/29/20 14:25 Pulse Ox 95 09/29/20 14:25 Body Mass Index 0.3 Const: General: No confusion Nutritional Appearance: well nourished Orientation/consciousness: No confusion Limitations: no limitations HENMT: Head: Yes normal to inspection, Yes normocephalic and Yes atraumatic Ears: hearing grossly normal bilaterally, external ears normal, TM's normal bilaterally and EAC's normal General nose exam: Normal external nose present Face and sinus: Yes normal facial exam and Yes sinuses nontender Mouth: Normal oral and palatal mucosa present Throat: Yes posterior oropharynx normal Eyes: Conjunctivae: conjunctivae normal Pupils: Equal, round and reactive pupils present EOM: EOMs intact bilaterally Neck: Neck: Yes full ROM, Yes no lymphadenopathy and Yes supple Resp: Effort & Inspection: able to speak in complete sentences Auscultation: no crackles, no rales, no rhonchi and wheezes Cardio: Rate: regular rate Rhythm: regular rhythm Heart sounds: S1 normal heart sound present and S2 normal heart sound present GI: Inspection: Yes normal to inspection Palpation (GI): Soft to palpation, nontender, no guarding and not rigid Percussion: Yes normal to percussion Auscultation: normal bowel sounds Skin: General skin exam: no rashes or lesions noted Neuro: General: No confusion Cranial nerves: Yes Equal, round and reactive pupils present Extrem: General: Yes normal to inspection and Yes full ROM Psych: Appearance: grossly normal Affect: normal affect Attitude: cooperative Thought process: Normal thought process present Course Course Course Narrative: 60-year-old female with past medical history of COPD, asthma, diabetes, and DVT presents for 4 days of chills, body aches, cough, wheezing, shortness of breath. States mild blood streaking in sputum. Patient was seen for similar symptoms then June and had a CTA which was negative. On exam, patient is well-appearing, is satting 94% on room air, has scattered wheezes throughout. Give albuterol inhaler, prednisone, Discussed with Dr. Butt D-dimer versus CTA.Dr Butt felt ddimer would be sufficient. On exam, patient is satting 94% on room air. She has scattered wheezes throughout her lung khan, able to speak in complete sentences, no work of breathing. Chest x-ray is negative, troponin is negative, EKGs shows no ischemic changes, labs are unremarkable, COVID is negative. Patient was given albuterol inhaler and prednisone d-dimer is 270, prior d-dimers were less than 200. Will do a CTA to rule out PE NO PE on CTA. Will treat with albuterol inhaler and keflex. Gave return precautions. MDM - SOB/Dyspnea Lab Data Attestation: I reviewed the patient's lab results. Result diagrams: 09/29/20 11:10 09/29/20 11:10 Labs: Lab Results 09/29/20 09/29/20 09/29/20 Range/Units 11:10 11:10 11:10 WBC 6.3 (4.8-10.8) X10*3/uL RBC 4.52 (4.20-5.50) X10*6/uL Hgb 14.1 (12.0-16.0) g/dl Hct 42.3 (37-47) % MCV 93.6 (80-98) fL MCH 31.2 (27.0-33.0) pg MCHC 33.3 (31.0-35.0) g/dl RDW 13.4 (11.0-16.0) % Plt Count 275 (160-400) X10*3/uL MPV 9.8 (9.4-12.3) fL Immature Gran % (Auto) 0.2 (0.0-0.4) % Neut % (Auto) 54.8 (45-73) % Lymph % (Auto) 33.5 (20-40) % [place] % (Auto) 8.9 (2-11) % Eos % (Auto) 2.1 (0-4) % Baso % (Auto) 0.5 (0-2) % Lymph # (Auto) 2.1 (1.2-4.9) X10*3/uL [place] # (Auto) 0.6 (0.1-1.2) X10*3/uL Eos # (Auto) 0.1 (0.0-0.4) X10*3/uL Baso # (Auto) 0.0 (0.0-0.2) X10*3/uL Abs Immat Gran (auto) 0.01 (0.00-0.03) X10*3/uL Absolute Neuts (auto) 3.5 (2.0-8.3) X10*3/uL Absolute Nucleated RBC 0.000 (0.0-0.012) X10*3/uL Nucleated RBC % (auto) 0.0 (0.0-0.2) /100WBC D-Dimer NG/ML Sodium 144 (135-145) mmol/L Potassium 3.9 (3.3-5.1) mmol/L Chloride 111 H (96-108) mmol/L Carbon Dioxide 24 (22-29) mmol/L Anion Gap 13 (12-20) BUN 12 (9-16) mg/dL Creatinine 0.84 (0.5-1.4) mg/dL Estim Creat Clear Calc 104.0 Estimated GFR > 60 Random Glucose 121 H (60-115) mg/dL Calcium 9.9 D (8.4-10.2) mg/dL Total Bilirubin 0.4 (0.0-1.0) mg/dL AST 21 (5-31) U/L ALT 17 (0-31) U/L Alkaline Phosphatase 89 (39-117) U/L Troponin I High Sens < 3.5 (<3.5-17.0) ng/L B-Natriuretic Peptide 63 (<100) pg/mL Total Protein 6.9 (6.5-8.0) g/dL Albumin 4.2 (3.5-5.0) g/dL COVID-19 (DONALD) (Negative) COVID-19 Clin Com 09/29/20 09/29/20 Range/Units 11:14 13:56 WBC (4.8-10.8) X10*3/uL RBC (4.20-5.50) X10*6/uL Hgb (12.0-16.0) g/dl Hct (37-47) % MCV (80-98) fL MCH (27.0-33.0) pg MCHC (31.0-35.0) g/dl RDW (11.0-16.0) % Plt Count (160-400) X10*3/uL MPV (9.4-12.3) fL Immature Gran % (Auto) (0.0-0.4) % Neut % (Auto) (45-73) % Lymph % (Auto) (20-40) % [place] % (Auto) (2-11) % Eos % (Auto) (0-4) % Baso % (Auto) (0-2) % Lymph # (Auto) (1.2-4.9) X10*3/uL [place] # (Auto) (0.1-1.2) X10*3/uL Eos # (Auto) (0.0-0.4) X10*3/uL Baso # (Auto) (0.0-0.2) X10*3/uL Abs Immat Gran (auto) (0.00-0.03) X10*3/uL Absolute Neuts (auto) (2.0-8.3) X10*3/uL Absolute Nucleated RBC (0.0-0.012) X10*3/uL Nucleated RBC % (auto) (0.0-0.2) /100WBC D-Dimer 270 NG/ML Sodium (135-145) mmol/L Potassium (3.3-5.1) mmol/L Chloride (96-108) mmol/L Carbon Dioxide (22-29) mmol/L Anion Gap (12-20) BUN (9-16) mg/dL Creatinine (0.5-1.4) mg/dL Estim Creat Clear Calc Estimated GFR Random Glucose (60-115) mg/dL Calcium (8.4-10.2) mg/dL Total Bilirubin (0.0-1.0) mg/dL AST (5-31) U/L ALT (0-31) U/L Alkaline Phosphatase (39-117) U/L Troponin I High Sens (<3.5-17.0) ng/L B-Natriuretic Peptide (<100) pg/mL Total Protein (6.5-8.0) g/dL Albumin (3.5-5.0) g/dL COVID-19 (DONALD) Negative (Negative) COVID-19 Clin Com See Note ECG Data Interpretation: Sinus rhythm with first-degree AV block, rate is 66, normal axis, NJ interval 2-6, QRS 100, QTC 457. No ST elevations or depressions, no T- wave inversions or flattening. Discharge Plan Discharge Clinical Impression: Bronchitis Patient Disposition: Home, Self-Care Instructions: Acute Bronchitis (ED) Additional Instructions: Your COVID test today is negative. Your chest x-ray shows no sign of pneumonia. All of your labs are within normal limits. This may be bronchitis. I am starting you on antibiotics, Tessalon Perles, and albuterol inhaler. Please take your daily oral inhaler 2 puffs every 4 hours for next 2 or 3 days. Please return to emergency room if you have fevers, worsening shortness of breath, chest pain, or any other new or concerning symptoms. Please call your primary care provider today for follow-up appointment next 2 or 3 days. Tu prueba de COVID de hoy es negativa. Booth radiograf?a de t?rax no muestra signos de neumon?a. Todos norah laboratorios est?n dentro de los l?mites normales. [place] puede ser bronquitis. Te estoy comenzando con antibi?ticos, Tessalon Perles e inhalador de albuterol. [place] booth inhalador oral diario 2 inhalaciones cada 4 horas anabel los pr?ximos 2 o 3 d?as. Regrese a la chucky de emergencias si tiene fiebre, empeoramiento de la dificultad para respirar, dolor en el pecho o cualquier otro s?ntoma nuevo o preocupante. Llame a booth proveedor de atenci?n primaria hoy para glory william de seguimiento los pr?ximos 2 o 3 d?as. Prescriptions: New cephalexin 500 mg capsule 500 mg PO QID 7 Days Qty: 28 RF: 0 benzonatate 200 mg capsule 200 mg PO BID PRN (Reason: cough) 5 Days Qty: 10 RF: 0 albuterol sulfate 90 mcg/actuation HFA aerosol inhaler 2 puff inhalation Q4-6H PRN (Reason: shortness of breath or wheezing) Qty: 6.7 RF: 0 No Action Culturelle 10 billion cell capsule 1 cap PO DAILY 30 Days Qty: 30 RF: 3 Culturelle 10 billion cell capsule 1 cap PO DAILY 30 Days Qty: 30 RF: 6 cholecalciferol (vitamin D3) 50 mcg (2,000 unit) capsule 50 mcg PO QAM Qty: 30 RF: 3 omalizumab 150 mg/mL syringe 300 mg subcut Q2W Qty: 2 RF: 12 gabapentin 400 mg capsule 400 mg PO BID Qty: 60 RF: 5 Spiriva with HandiHaler 18 mcg capsule, w/inhalation device 1 cap inhalation DAILY 30 Days Qty: 30 RF: 6 dextrose [Dex4 Glucose] 40 % gel 10 g PO Q15M PRN (Reason: hypoglycemia) 30 Days Qty: 37.5 RF: 5 hydrocortisone [Proctosol HC] 2.5 % cream with perineal applicator 1 appl NJ BID PRN (Reason: hemorrhoids) Qty: 30 RF: 6 albuterol sulfate 90 mcg/actuation HFA aerosol inhaler 2 puff inhalation Q6H PRN (Reason: bronchitis) Qty: 8.5 RF: 0 benzonatate [Tessalon Perles] 100 mg capsule 100 mg PO TID PRN (Reason: cough) Qty: 15 RF: 0 tramadol 50 mg tablet 50 mg PO BID PRNRF: 0 montelukast 10 mg tablet 10 mg PO DAILY RF: 0 clonazepam [Klonopin] 1 mg tablet 1 mg PO BEDTIME RF: 0 (DME) Knee Support Brace Misc See Rx Instructions .ROUTE .MEDSUPPLY Qty: 2 RF: 0 Trulance 3 mg tablet 3 mg PO DAILY 30 Days Qty: 30 RF: 5 bisacodyl [Dulcolax (bisacodyl)] 5 mg tablet,delayed release (DR/EC) See Rx Instructions PO BEDTIME 30 Days Qty: 90 RF: 6 docusate sodium 100 mg capsule 100 mg PO BID 30 Days Qty: 60 RF: 4 levothyroxine 75 mcg tablet 75 mcg PO DAILY 90 Days Qty: 90 RF: 2 metformin 500 mg tablet extended release 24 hr 500 mg PO DAILY 30 Days Qty: 30 RF: 6 pravastatin 80 mg tablet 80 mg PO BEDTIME 30 Days Qty: 30 RF: 6 glucose 4 gram tablet,chewable 16 g PO RF: 0 ipratropium-albuterol 0.5 mg-3 mg(2.5 mg base)/3 mL solution for nebulization inhalation Q6H PRNRF: 0 alcohol swabs Pads, Medicated topical DAILY RF: 0 zolpidem 10 mg tablet 10 mg PO BEDTIME PRNRF: 0 buspirone 5 mg tablet 5 mg PO BID RF: 0 fluticasone propionate 50 mcg/actuation spray,suspension 1 spray intranasal BID RF: 0 risperidone 0.5 mg tablet 0.5 mg PO BID RF: 0 amlodipine 10 mg tablet 10 mg PO BEDTIME RF: 0 enalapril maleate 10 mg tablet 10 mg PO QAM RF: 0 cyclobenzaprine 10 mg tablet 10 mg PO DAILY PRNRF: 0 (DME) lancets 33 gauge misc See Rx Instructions ea Not Applicable DAILY Qty: 100 RF: 0 Flovent HFA 220 mcg/actuation HFA aerosol inhaler 1 puff PO BID RF: 0 (DME) FreeStyle Lite Strips Strip See Rx Instructions ea Not Applicable DAILY Qty: 10 RF: 0 calcium carbonate-vitamin D3 600 mg(1,500mg) -400 unit tablet 1 tab PO BID RF: 0 potassium chloride 20 mEq tablet,ER particles/crystals 20 meq PO BID RF: 0 cetirizine 10 mg tablet 10 mg PO BEDTIME RF: 0 (DME) blood-glucose meter Kit See Rx Instructions ea .ROUTE DAILY Qty: 1 RF: 0 omeprazole 20 mg capsule,delayed release(DR/EC) 20 mg PO BID RF: 0 acetaminophen 325 mg tablet 650 mg PO QID RF: 0 meclizine 25 mg tablet 25 mg PO PRN (Reason: dizziness) RF: 0 Interventions: ED Discharge Assessment Last Done: 09/29/20 17:19 Discharge Date/Time: 09/29/20 17:20 Print Language: Barbadian
[2020-09-29 10:16] VITALS: BP 141/91; PULSE 72; RESP 18; TEMP 36.8; O2SAT 94
--- NOTE | 2020-09-29 10:54 | ECG_ITS ---
Test Reason : SHORTNESS OF BREATH Blood Pressure : / mmHG Vent. Rate : 066 BPM Atrial Rate : 066 BPM P-R Int : 226 ms QRS Dur : 100 ms QT Int : 436 ms P-R-T Axes : 046 -41 016 degrees QTc Int : 457 ms Sinus rhythm with 1st degree A-V block Left axis deviation Abnormal ECG When compared with ECG of 08-AUG-2020 12:08, No significant change was found Referred By: Catie Davis Electronically Signed By:LIVE YANEZ
[2020-09-29] MEDS: predniSONE 20 MG TABLET 60 MG PO (11:03)
[2020-09-29 11:12] VITALS: BP 141/91; PULSE 64; RESP 16; O2SAT 98
[2020-09-29 11:17] LABS: MANUAL DIFF FLAG NO
[2020-09-29 11:19] LABS: Basophils Percent Auto 0.5 % (0-2); Eosinophils Absolute Auto 0.1 X10*3/uL (0.0-0.4); Eosinophils Percent Auto 2.1 % (0-4); Hematocrit 42.3 % (37-47); Hemoglobin 14.1 g/dl (12.0-16.0); Imm Gran Abs Auto 0.01 X10*3/uL (0.00-0.03); Imm Gran Pct Auto 0.2 % (0.0-0.4); Lymphocytes Absolute Auto 2.1 X10*3/uL (1.2-4.9); Lymphocytes Percent Auto 33.5 % (20-40); Mean Corpuscular HGB Conc 33.3 g/dl (31.0-35.0); Mean Corpuscular Hemoglobin 31.2 pg (27.0-33.0); Mean Corpuscular Volume 93.6 fL (80-98); Mean Platelet Volume 9.8 fL (9.4-12.3); Monocytes Absolute Auto 0.6 X10*3/uL (0.1-1.2); Monocytes Percent Auto 8.9 % (2-11); Neutrophils Absolute Auto 3.5 X10*3/uL (2.0-8.3); Neutrophils Percent Auto 54.8 % (45-73); Platelet Count 275 X10*3/uL (160-400); Red Blood Count 4.52 X10*6/uL (4.20-5.50); Red Cell Distribution Width 13.4 % (11.0-16.0); White Blood Count 6.3 X10*3/uL (4.8-10.8)
[2020-09-29 11:36] VITALS: PULSE 67; O2SAT 98
[2020-09-29] MEDS: Albuterol Sulfate 90 MCG 8 GM INHALER 2 PUFF INHALE (11:36)
[2020-09-29 11:39] LABS: COVID-19 Test Negative (Negative)
[2020-09-29 11:42] LABS: Alanine Aminotransferase 17 U/L (0-31); Albumin Level 4.2 g/dL (3.5-5.0); Alkaline Phosphatase 89 U/L (39-117); Anion Gap 13 (12-20); Aspartate Amino Transferase 21 U/L (5-31); Bilirubin Total 0.4 mg/dL (0.0-1.0); Blood Urea Nitrogen 12 mg/dL (9-16); Calcium 9.9 mg/dL (8.4-10.2); Carbon Dioxide 24 mmol/L (22-29); Chloride 111 mmol/L (96-108); Estimated Glomerular Filt Rate > 60; Glucose Random 121 mg/dL (60-115); Potassium 3.9 mmol/L (3.3-5.1); Sodium 144 mmol/L (135-145); Total Protein 6.9 g/dL (6.5-8.0)
[2020-09-29 11:48] LABS: B Type Natriuretic Peptide 63 pg/mL (<100); Troponin-I High Sensitivity < 3.5 ng/L (<3.5-17.0)
[2020-09-29 13:22] VITALS: BP 132/109; PULSE 72; RESP 16; TEMP 36.7; O2SAT 96
[2020-09-29 14:17] LABS: D Dimer 270 NG/ML
[2020-09-29 14:25] VITALS: BP 133/89; PULSE 78; RESP 18; TEMP 36.7; O2SAT 95
--- NOTE | 2020-09-29 15:03 | PC.NURSE ---
PT TO CT IN STRETCHER. PT COMPLAINING THAT SANDRA BEEN HERE SINCE 9AM [employer] BILINGUAL IN ROOM FOR EXPLANATION. WILL CONTINUE TO MONITOR PT.
[2020-09-29] MEDS: iohexoL 350 MG/ML 100 ML INFUS..BTL 71 ML IV (15:05)
--- NOTE | 2020-09-29 16:52 | PC.NURSE ---
PT UP AND AMBULATES TO RESTROOM W/O DIFFICULTY. PT AWAITING FOR PENDING CTA. WILL CONTINUE TO [id number] PT.
== END 2020-09-29 17:20 | disposition home or self-care (01) ==
PROVIDERS: Physician Assistant; Emergency Provider Emergency Medicine; PCP Nurse Practitioner Primary Care
DX: J40 Bronchitis, not specified as acute or chronic (principal); R06.02 Shortness of breath; J44.9 Chronic obstructive pulmonary disease, unspecified; Z79.899 Other long term (current) drug therapy; Z20.822 Contact with and (suspected) exposure to COVID-19
CPT/HCPCS: 36415; 71045; 71275; 80053; 83880; 84484; 85025; 85379; 87635; 93005; 94640; 99284; Q9967

== ENCOUNTER 2020-10-09 09:18 | Outpatient (REF) | payer OTHER, SELFPAY | END 2020-10-09 09:19 | disposition home or self-care (01) | LOC: HO.MDS 09:18 | PROVIDERS: PCP Nurse Practitioner Primary Care; Visit Provider Internal Medicine Pulmonary Disease | DX: J45.50 Severe persistent asthma, uncomplicated (principal) | CPT/HCPCS: 96372; J2357 ==

== ENCOUNTER → 2020-10-16 13:48 | Outpatient (BNVA) | payer OTHER, SELFPAY | PROVIDERS: PCP Nurse Practitioner Primary Care; Visit Provider Dietitian, Registered | DX: E11.65 Type 2 diabetes mellitus with hyperglycemia (principal) | CPT/HCPCS: 97803 ==

== ENCOUNTER 2020-10-23 08:52 | Emergency (ER) | payer OTHER, SELFPAY ==
--- NOTE | ~2020-10-23 | XR_ITS ---
EXAMINATION: XR CHEST CLINICAL INFORMATION: Cough and shortness of breath COMPARISON: Previous chest x-ray and chest CTA September 2020 TECHNIQUE: 2 views of the chest were obtained. FINDINGS: The cardiac silhouette does not appear enlarged. The thoracic aorta is tortuous. Hilar and mediastinal contours are otherwise unremarkable. There is new subsegmental atelectasis at the left lung base. The lungs are otherwise clear. There is no pleural effusion or pneumothorax. Bony structures are unremarkable. XR/XR chest 2V IMPRESSION: Subsegmental atelectasis at the left lung base. Otherwise unremarkable exam.
[2020-10-23 08:53] VITALS: BP 140/88; PULSE 69; RESP 18; TEMP 36.6; O2SAT 98; BMI 36.6
--- NOTE | 2020-10-23 09:27 | ED.GENADULT ---
HPI - General Adult General Chief complaint: General Medical Stated complaint: MULTIPLE ISSUES Time Seen by Provider: 10/23/20 09:19 Source: patient Mode of arrival: ambulatory Limitations: language barrier History of Present Illness HPI narrative: 60 years old female with past medical history of bronchitis, osteoarthritis of her knees, COPD, diabetes, hypercholesteremia, GERD, CIC, Mccoy, fibromyalgia, hypertension is here today for complaints of low oxygen level. Patient reports that she checked her oxygen level in it was 62 on her machine at home. Patient began starting feeling dizzy. Patient reports that for the last couple days she had been coughing and had cold symptoms. Patient denies any fever or chills. Patient reports that she had both COVID vaccines. Related Data Home Medications Medication Instructions Recorded Confirmed alcohol swabs pad TOPICAL DAILY 11/20/19 08/16/20 amlodipine 10 mg tablet 10 mg PO BEDTIME 11/20/19 08/16/20 blood sugar diagnostic #10 ea 11/20/19 08/16/20 blood-glucose meter #1 ea 11/20/19 08/16/20 buspirone 5 mg tablet 5 mg PO BID 11/20/19 08/16/20 calcium carbonate 600 mg (1,500 1 tab PO BID 11/20/19 08/16/20 mg)-vitamin D3 400 unit tablet cetirizine 10 mg tablet 10 mg PO BEDTIME 11/20/19 08/16/20 cyclobenzaprine 10 mg tablet 10 mg PO DAILY PRN 11/20/19 08/16/20 enalapril maleate 10 mg tablet 10 mg PO QAM 11/20/19 08/16/20 fluticasone propionate 220 1 puff PO BID 11/20/19 08/16/20 mcg/actuation HFA aerosol inhaler fluticasone propionate 50 1 spray INTRANASAL BID 11/20/19 08/16/20 mcg/actuation nasal spray,suspension glucose 4 gram chewable tablet 16 g PO 11/20/19 08/16/20 ipratropium 0.5 mg-albuterol 3 mg ml INHALATION Q6H PRN 11/20/19 08/16/20 (2.5 mg base)/3 mL nebulization soln lancets 33 gauge #100 ea 11/20/19 08/16/20 potassium chloride 20 mEq 20 meq PO BID 11/20/19 08/16/20 tablet,extended release(part/cryst) risperidone 0.5 mg tablet 0.5 mg PO BID 11/20/19 08/16/20 zolpidem 10 mg tablet 10 mg PO BEDTIME PRN 11/20/19 08/16/20 omeprazole 20 mg capsule,delayed 20 mg PO BID 11/23/19 08/16/20 release clonazepam 1 mg tablet (Klonopin) 1 mg PO BEDTIME 03/08/20 08/16/20 montelukast 10 mg tablet 10 mg PO DAILY 03/08/20 08/16/20 tramadol 50 mg tablet 50 mg PO BID PRN 03/08/20 08/16/20 acetaminophen 325 mg tablet 650 mg PO QID tab 07/03/20 08/16/20 meclizine 25 mg tablet 25 mg PO PRN tab 07/10/20 08/16/20 Previous Rx's Medication Instructions Recorded leg brace (Knee Support Brace) #2 ea 03/08/20 Culturelle 10 billion cell capsule 1 cap PO DAILY 30 Days #30 cap NS 04/14/20 (Lactobacillus rhamnosus GG) Lactobacillus rhamnosus GG 10 1 cap PO DAILY 30 Days #30 cap 04/26/20 billion cell capsule (Culturelle) bisacodyl 5 mg tablet,delayed See Rx Instructions PO BEDTIME 30 05/22/20 release (Dulcolax (bisacodyl)) Days #90 tab plecanatide 3 mg tablet (Trulance) 3 mg PO DAILY 30 Days #30 tab 05/22/20 albuterol sulfate 90 mcg/actuation 2 puff INHALATION Q6H PRN #8.5 g 07/04/20 aerosol inhaler benzonatate 100 mg capsule 100 mg PO TID PRN #15 cap 07/04/20 (Tessalmary Garcia) levothyroxine 75 mcg tablet 75 mcg PO DAILY 90 Days #90 tab 07/10/20 metformin 500 mg tablet,extended 500 mg PO DAILY 30 Days #30 tab 07/10/20 release 24 hr omalizumab 150 mg/mL subcutaneous 300 mg SUBCUT Q2W #2 ml 07/10/20 syringe pravastatin 80 mg tablet 80 mg PO BEDTIME 30 Days #30 tab 07/10/20 gabapentin 400 mg capsule 400 mg PO BID #60 cap 06/29/21 tiotropium bromide 18 mcg capsule 1 cap INHALATION DAILY 30 Days #30 08/15/20 with inhalation device (Spiriva inh with HandiHaler) dextrose 40 % oral gel (Dex4 10 g PO Q15M PRN 30 Days #37.5 g 08/24/20 Glucose) hydrocortisone 2.5 % topical cream 1 appl ID BID PRN #30 g 08/30/20 with perineal applicator (Proctosol HC) albuterol sulfate 90 mcg/actuation 2 puff INHALATION Q4-6H PRN #6.7 g 09/29/20 aerosol inhaler benzonatate 200 mg capsule 200 mg PO BID PRN 5 Days #10 cap 09/29/20 cephalexin 500 mg capsule 500 mg PO QID 7 Days #28 cap 09/29/20 cholecalciferol (vitamin D3) 50 50 mcg PO QAM #30 cap 10/19/20 mcg (2,000 unit) capsule docusate sodium 100 mg capsule 100 mg PO BID 30 Days #60 cap 10/20/20 Allergies Allergy/AdvReac Type Severity Reaction Status Date / Time aspirin [Aspirin] Allergy Mild ITCHY Verified 09/18/20 09:22 THROAT azithromycin Allergy Unknown Unknown Verified 09/18/20 09:22 naproxen Allergy Unknown Unknown Verified 09/18/20 09:22 simvastatin Allergy Unknown Unknown Verified 09/18/20 09:22 onion [ONION] AdvReac Mild RED FACE Verified 09/18/20 09:22 Review of Systems Review of Systems: Constitutional : No Weight loss, No Fever, No Chills, No Night Sweats, No Fatigue, No Malaise ENT/Mouth : No Hearing loss, No Ear Pain, No Nasal Congestion, No Sinus Pain, No Hoarseness, No sore throat, No Rhinorrhea, No Swallowing Difficulty Eyes: No Eye Pain, No Swelling, No Redness, No Foreign Body, No Discharge, No Vision Changes Cardiovascular : No Chest Pain, No SOB, No Dyspnea on Exertion, No Orthopnea, No Edema, No Palpitations Respiratory : Cough, No Sputum, No Wheezing, No Smoke Exposure, No Dyspnea Gastrointestinal : No Nausea, No Vomiting, No Diarrhea, No Constipation, No abdominal Pain, No Hematochezia, No Melena Genitourinary : no irregular bleeding, No Dysuria, No Urinary Frequency, No Hematuria, No Urinary Incontinence, No Urgency, No Flank Pain, No Urinary Flow Changes, No Hesitancy Musculoskeletal : No joint pain, No Myalgias, No Joint Swelling Skin : No Skin Lesions, No rash Neuro : No Weakness, No Numbness, No Paresthesias, No Loss of Consciousness, No Dizziness, No Headache Psych : No Anxiety/Panic, No Depression, No SI/HI/AH/VH, No Social Issues, Heme/Lymph: No Bruising, No Bleeding,No Lymphadenopathy Endocrine : No Polyuria, No Polydipsia, No Temperature Intolerance Yes all other systems are reviewed and are negative PMFSH Past Medical History Medical History Bronchitis Bronchitis Cocaine abuse COPD exacerbation DVT (deep venous thrombosis) Hypothyroidism Low vitamin D level Menometrorrhagia Non-toxic multinodular goiter Spondylosis of cervical region without myelopathy or radiculopathy Surgical History H/O colonoscopy with polypectomy History of esophagogastroduodenoscopy (EGD) History of hysterectomy History of lithotripsy History of selective injection of anesthetic agent around lumbar nerve root Hx of right breast biopsy Family History Family History Father No problems noted. Mother Myocardial infarction CVA (cerebral vascular accident) Social History Social History Household Members: None Alcohol intake: never Patient Tobacco Use Status: Never used Tobacco Advance Directives: Yes Advance Directives Information Provided: No Advance Directives on File: No Patient : No Current occupational status: disabled Physical Exam Vital Signs: Vital Signs: Last Vital Signs Temp 97.9 F 10/23/20 08:53 Pulse 69 10/23/20 08:53 Resp 18 10/23/20 08:53 BP 140/88 H 10/23/20 08:53 Pulse Ox 98 10/23/20 08:53 Body Mass Index 36.6 Const: General: healthy appearing, no acute distress and well developed Nutritional Appearance: well nourished Orientation/consciousness: patient oriented x3 HENMT: Head: Yes normal to inspection, Yes normocephalic and Yes atraumatic Ears: hearing grossly normal bilaterally General nose exam: Normal external nose present Face and sinus: Yes normal facial exam Mouth: Normal oral and palatal mucosa present Throat: Yes posterior oropharynx normal Eyes: General: appearance normal, both eyes and all related structures Neck: Neck: Yes normal visual inspection, Yes full ROM and Yes trachea midline Thyroid: Thyroid normal Resp: Auscultation: clear to auscultation bilaterally Cardio: Rate: regular rate Rhythm: regular rhythm GI: Inspection: Yes normal to inspection and No distended Palpation (GI): No hepatosplenomegaly present Auscultation: normal bowel sounds Skin: General skin exam: elasticity normal, turgor normal and dry skin Neuro: General: patient oriented x3 Course Course Course Narrative: 60 years old female is here today for complaints of cold symptoms, cough. Checked her O2 sat at home and reports that on her machine it was 62. Patient was 98% in triage. Afebrile. Will check for COVID, chest x-ray as she reports that she has cough symptoms. Lung sounds are clear with no wheezing. Will do CBC to make sure that she does not have a leukocytosis. Patient is agreeable to this plan she does not have any other symptoms. Reevaluation(s) Reevaluation #1: No leukocytosis, awaiting COVID testing and x-ray. Reevaluation #2: X-ray negative for any acute processes. Patient reports that she is feeling well. Denies any SOB, respiratory distress. O2 saturation 98. Will send patient home and she can follow-up with her PCP on as needed basis. Medical Decision Making Lab Data Result diagrams: 10/23/20 09:42 Labs: Lab Results 10/23/20 10/23/20 Range/Units 09:42 09:42 WBC 6.3 (4.8-10.8) X10*3/uL RBC 4.37 (4.20-5.50) X10*6/uL Hgb 13.6 (12.0-16.0) g/dl Hct 40.5 (37-47) % MCV 92.7 (80-98) fL MCH 31.1 (27.0-33.0) pg MCHC 33.6 (31.0-35.0) g/dl RDW 13.4 (11.0-16.0) % Plt Count 257 (160-400) X10*3/uL MPV 9.7 (9.4-12.3) fL Immature Gran % (Auto) 0.2 (0.0-0.4) % Neut % (Auto) 55.6 (45-73) % Lymph % (Auto) 32.5 (20-40) % Maury % (Auto) 9.1 (2-11) % Eos % (Auto) 2.1 (0-4) % Baso % (Auto) 0.5 (0-2) % Lymph # (Auto) 2.0 (1.2-4.9) X10*3/uL Maury # (Auto) 0.6 (0.1-1.2) X10*3/uL Eos # (Auto) 0.1 (0.0-0.4) X10*3/uL Baso # (Auto) 0.0 (0.0-0.2) X10*3/uL Abs Immat Gran (auto) 0.01 (0.00-0.03) X10*3/uL Absolute Neuts (auto) 3.5 (2.0-8.3) X10*3/uL Absolute Nucleated RBC 0.000 (0.0-0.012) X10*3/uL Nucleated RBC % (auto) 0.0 (0.0-0.2) /100WBC Coronavirus (PCR) NEGATIVE (Negative) Influenza Type A (PCR) NEGATIVE (Negative) Influenza Type B (PCR) NEGATIVE (Negative) RSV RNA Qual (PCR) NEGATIVE (Negative) Imaging Data Chest x-ray: Radiologist's impression: FINDINGS: The cardiac silhouette does not appear enlarged. The thoracic aorta is tortuous. Hilar and mediastinal contours are otherwise unremarkable. There is new subsegmental atelectasis at the left lung base. The lungs are otherwise clear. There is no pleural effusion or pneumothorax. Bony structures are unremarkable. Discharge Plan Discharge Clinical Impression: Dyspnea Qualifiers: Dyspnea type: unspecified Qualified Code(s): R06.00 - Dyspnea, unspecified Patient Disposition: Home, Self-Care Instructions: Breathing Techniques (ED) Additional Instructions: Lo vieron aqu? hoy por un nivel bajo de ox?montrell. Respire profunda y lentamente. Booth ox?montrell en la chucky de emergencias era normal. Booth radiograf?a de t?rax es normal. Holli un seguimiento con booth proveedor de atenci?n primaria en 2-3 d?as. Puede regresar al departamento de emergencias si experimenta un empeoramiento de los s?ntomas o desarrolla cualquier otro s?ntoma preocupante. Prescriptions: No Action Culturelle 10 billion cell capsule 1 cap PO DAILY 30 Days Qty: 30 RF: 3 Culturelle 10 billion cell capsule 1 cap PO DAILY 30 Days Qty: 30 RF: 6 omalizumab 150 mg/mL syringe 300 mg subcut Q2W Qty: 2 RF: 12 gabapentin 400 mg capsule 400 mg PO BID Qty: 60 RF: 5 Spiriva with HandiHaler 18 mcg capsule, w/inhalation device 1 cap inhalation DAILY 30 Days Qty: 30 RF: 6 dextrose [Dex4 Glucose] 40 % gel 10 g PO Q15M PRN (Reason: hypoglycemia) 30 Days Qty: 37.5 RF: 5 hydrocortisone [Proctosol HC] 2.5 % cream with perineal applicator 1 appl ID BID PRN (Reason: hemorrhoids) Qty: 30 RF: 6 cholecalciferol (vitamin D3) 50 mcg (2,000 unit) capsule 50 mcg PO QAM Qty: 30 RF: 3 docusate sodium 100 mg capsule 100 mg PO BID 30 Days Qty: 60 RF: 5 albuterol sulfate 90 mcg/actuation HFA aerosol inhaler 2 puff inhalation Q6H PRN (Reason: bronchitis) Qty: 8.5 RF: 0 benzonatate [Tessalon Perles] 100 mg capsule 100 mg PO TID PRN (Reason: cough) Qty: 15 RF: 0 cephalexin 500 mg capsule 500 mg PO QID 7 Days Qty: 28 RF: 0 benzonatate 200 mg capsule 200 mg PO BID PRN (Reason: cough) 5 Days Qty: 10 RF: 0 albuterol sulfate 90 mcg/actuation HFA aerosol inhaler 2 puff inhalation Q4-6H PRN (Reason: shortness of breath or wheezing) Qty: 6.7 RF: 0 tramadol 50 mg tablet 50 mg PO BID PRNRF: 0 montelukast 10 mg tablet 10 mg PO DAILY RF: 0 clonazepam [Klonopin] 1 mg tablet 1 mg PO BEDTIME RF: 0 (DME) Knee Support Brace Misc See Rx Instructions .ROUTE .MEDSUPPLY Qty: 2 RF: 0 Trulance 3 mg tablet 3 mg PO DAILY 30 Days Qty: 30 RF: 5 bisacodyl [Dulcolax (bisacodyl)] 5 mg tablet,delayed release (DR/EC) See Rx Instructions PO BEDTIME 30 Days Qty: 90 RF: 6 levothyroxine 75 mcg tablet 75 mcg PO DAILY 90 Days Qty: 90 RF: 2 metformin 500 mg tablet extended release 24 hr 500 mg PO DAILY 30 Days Qty: 30 RF: 6 pravastatin 80 mg tablet 80 mg PO BEDTIME 30 Days Qty: 30 RF: 6 glucose 4 gram tablet,chewable 16 g PO RF: 0 ipratropium-albuterol 0.5 mg-3 mg(2.5 mg base)/3 mL solution for nebulization inhalation Q6H PRNRF: 0 alcohol swabs Pads, Medicated topical DAILY RF: 0 zolpidem 10 mg tablet 10 mg PO BEDTIME PRNRF: 0 buspirone 5 mg tablet 5 mg PO BID RF: 0 fluticasone propionate 50 mcg/actuation spray,suspension 1 spray intranasal BID RF: 0 risperidone 0.5 mg tablet 0.5 mg PO BID RF: 0 amlodipine 10 mg tablet 10 mg PO BEDTIME RF: 0 enalapril maleate 10 mg tablet 10 mg PO QAM RF: 0 cyclobenzaprine 10 mg tablet 10 mg PO DAILY PRNRF: 0 (DME) lancets 33 gauge misc See Rx Instructions ea Not Applicable DAILY Qty: 100 RF: 0 Flovent HFA 220 mcg/actuation HFA aerosol inhaler 1 puff PO BID RF: 0 (DME) FreeStyle Lite Strips Strip See Rx Instructions ea Not Applicable DAILY Qty: 10 RF: 0 calcium carbonate-vitamin D3 600 mg(1,500mg) -400 unit tablet 1 tab PO BID RF: 0 potassium chloride 20 mEq tablet,ER particles/crystals 20 meq PO BID RF: 0 cetirizine 10 mg tablet 10 mg PO BEDTIME RF: 0 (DME) blood-glucose meter Kit See Rx Instructions ea .ROUTE DAILY Qty: 1 RF: 0 omeprazole 20 mg capsule,delayed release(DR/EC) 20 mg PO BID RF: 0 acetaminophen 325 mg tablet 650 mg PO QID RF: 0 meclizine 25 mg tablet 25 mg PO PRN (Reason: dizziness) RF: 0 Referrals: Sariah Vickers CONDUCTOR/BRAKEMAN [Primary Care Provider] - 2 days Interventions: ED Discharge Assessment Last Done: 10/23/20 11:32 Discharge Date/Time: 10/23/20 11:33
[2020-10-23 09:46] LABS: MANUAL DIFF FLAG NO
[2020-10-23 09:48] LABS: Basophils Percent Auto 0.5 % (0-2); Eosinophils Absolute Auto 0.1 X10*3/uL (0.0-0.4); Eosinophils Percent Auto 2.1 % (0-4); Hematocrit 40.5 % (37-47); Hemoglobin 13.6 g/dl (12.0-16.0); Imm Gran Abs Auto 0.01 X10*3/uL (0.00-0.03); Imm Gran Pct Auto 0.2 % (0.0-0.4); Lymphocytes Percent Auto 32.5 % (20-40); Mean Corpuscular HGB Conc 33.6 g/dl (31.0-35.0); Mean Corpuscular Hemoglobin 31.1 pg (27.0-33.0); Mean Corpuscular Volume 92.7 fL (80-98); Mean Platelet Volume 9.7 fL (9.4-12.3); Monocytes Absolute Auto 0.6 X10*3/uL (0.1-1.2); Monocytes Percent Auto 9.1 % (2-11); Neutrophils Absolute Auto 3.5 X10*3/uL (2.0-8.3); Neutrophils Percent Auto 55.6 % (45-73); Platelet Count 257 X10*3/uL (160-400); Red Blood Count 4.37 X10*6/uL (4.20-5.50); Red Cell Distribution Width 13.4 % (11.0-16.0); White Blood Count 6.3 X10*3/uL (4.8-10.8)
[2020-10-23 10:26] LABS: Influenza A PCR NEGATIVE (Negative); Influenza B PCR NEGATIVE (Negative); Resp Syncy Virus RNA Qual PCR NEGATIVE (Negative); SARS COV2 PCR INHOUSE NEGATIVE (Negative)
== END 2020-10-23 11:33 | disposition home or self-care (01) ==
PROVIDERS: Nurse Practitioner Family; Emergency Provider Emergency Medicine; PCP Nurse Practitioner Primary Care
DX: R06.00 Dyspnea, unspecified (principal); Z20.822 Contact with and (suspected) exposure to COVID-19; E11.9 Type 2 diabetes mellitus without complications; I10 Essential (primary) hypertension; F17.210 Nicotine dependence, cigarettes, uncomplicated; F14.10 Cocaine abuse, uncomplicated; Z79.899 Other long term (current) drug therapy
CPT/HCPCS: 0241U; 36415; 71046; 85025; 99283

== ENCOUNTER 2020-10-24 10:07 | Outpatient (REF) | payer OTHER, SELFPAY | END 2020-10-24 10:08 | disposition home or self-care (01) | LOC: HO.MDS 10:07 | PROVIDERS: Visit Provider Internal Medicine Pulmonary Disease | DX: J45.50 Severe persistent asthma, uncomplicated (principal) | CPT/HCPCS: 96372; J2357 ==

== ENCOUNTER → 2020-10-26 10:17 | Outpatient (BNVA) | payer OTHER, SELFPAY | PROVIDERS: PCP Nurse Practitioner Primary Care; Visit Provider Internal Medicine Pulmonary Disease | DX: J45.50 Severe persistent asthma, uncomplicated (principal); Z91.09 Other allergy status, other than to drugs and biological substances | CPT/HCPCS: 99212 ==

== ENCOUNTER 2020-11-01 | Outpatient (REF) | payer OTHER, SELFPAY ==
--- NOTE | ~2020-11-01 | FL_ITS ---
EXAMINATION: XR FLUOROSCOPY WITH IMAGES CLINICAL INFORMATION: Pain left knee COMPARISON: None. TECHNIQUE: Fluoroscopy performed by Dr. Michael. Fluoroscopy time: 0.3 minutes DAP: 0.389 Gycm2 Images: 2 FINDINGS: There are needles residing adjacent to the distal femur on both the medial and lateral sides, mid depth. There is a needle adjacent to the medial side proximal tibia, mid depth. There is no bony destructive process. No fracture or dislocation. FL/FL guidance in treatment room IMPRESSION: Fluoroscopy for pain management procedure.
== END 2020-11-01 00:01 | disposition home or self-care (01) ==
LOC: HO.RADIR
PROVIDERS: Visit Provider Internal Medicine
DX: Z13.89 Encounter for screening for other disorder (principal)

== ENCOUNTER → 2020-11-01 09:58 | Outpatient (BNVA) | payer OTHER, SELFPAY | PROVIDERS: PCP Nurse Practitioner Primary Care; Visit Provider Internal Medicine | DX: M25.561 Pain in right knee (principal); M25.562 Pain in left knee; G89.29 Other chronic pain | CPT/HCPCS: 64450 ==

== ENCOUNTER 2020-11-07 09:58 | Outpatient (REF) | payer OTHER, SELFPAY | END 2020-11-07 09:59 | disposition home or self-care (01) | LOC: HO.MDS 09:58 | PROVIDERS: PCP Nurse Practitioner Primary Care; Visit Provider Internal Medicine Pulmonary Disease | DX: J45.50 Severe persistent asthma, uncomplicated (principal) | CPT/HCPCS: 96372; J2357 ==

== ENCOUNTER 2020-11-07 13:51 | Outpatient (REF) | payer OTHER, SELFPAY | END 2020-11-07 13:52 | disposition home or self-care (01) | LOC: HO.RADIR 13:51 | PROVIDERS: Visit Provider Internal Medicine | DX: Z13.89 Encounter for screening for other disorder (principal) ==

== ENCOUNTER 2020-11-10 09:20 | Outpatient (REF) | payer OTHER, SELFPAY ==
--- NOTE | ~2020-11-10 | XR_ITS ---
EXAMINATION: XR LUMBOSACRAL SPINE CLINICAL INFORMATION: Spondylosis COMPARISON: None TECHNIQUE: Three views of the lumbosacral spine. FINDINGS: The vertebral body heights are maintained. There is mild intervertebral disc space loss with endplate degenerative changes L3-L4. The paraspinal soft tissues are normal. XR/XR lumbar spine 2-3V IMPRESSION: Mild degenerative disease of the lumbar spine.
== END 2020-11-10 09:21 | disposition home or self-care (01) ==
LOC: HO.XRAY 09:20
PROVIDERS: PCP Nurse Practitioner Primary Care; Visit Provider Internal Medicine
DX: M47.816 Spondylosis without myelopathy or radiculopathy, lumbar region (principal); M17.0 Bilateral primary osteoarthritis of knee
CPT/HCPCS: 72100; 99212

== ENCOUNTER 2020-11-14 13:00 | Outpatient (RCR) | payer OTHER, SELFPAY | END 2020-11-14 15:13 | disposition home or self-care (01) | LOC: HO.PT 13:00 | PROVIDERS: PCP Nurse Practitioner Primary Care; Visit Provider Nurse Practitioner Primary Care | DX: R42 Dizziness and giddiness (principal) | CPT/HCPCS: 95992; 97161 ==

== ENCOUNTER 2020-11-21 08:56 | Outpatient (REF) | payer OTHER, SELFPAY | END 2020-11-21 08:57 | disposition home or self-care (01) | LOC: HO.MDS 08:56 | PROVIDERS: Visit Provider Internal Medicine Pulmonary Disease | DX: J45.50 Severe persistent asthma, uncomplicated (principal) | CPT/HCPCS: 96372; J2357 ==

== ENCOUNTER 2020-12-05 11:30 | Outpatient (REF) | payer OTHER, SELFPAY | END 2020-12-05 11:31 | disposition home or self-care (01) | LOC: HO.MDS 11:30 | PROVIDERS: PCP Nurse Practitioner Primary Care; Visit Provider Internal Medicine Pulmonary Disease | DX: J45.50 Severe persistent asthma, uncomplicated (principal) | CPT/HCPCS: 96372; J2357 ==

== ENCOUNTER → 2020-12-06 13:24 | Outpatient (BNVA) | payer OTHER, SELFPAY | PROVIDERS: PCP Nurse Practitioner Primary Care; Visit Provider Internal Medicine Pulmonary Disease | DX: J45.901 Unspecified asthma with (acute) exacerbation (principal) | CPT/HCPCS: 99212 ==

== ENCOUNTER 2020-12-19 10:33 | Outpatient (REF) | payer OTHER, SELFPAY | END 2020-12-19 10:34 | disposition home or self-care (01) | LOC: HO.MDS 10:33 | PROVIDERS: PCP Nurse Practitioner Primary Care; Visit Provider Internal Medicine Pulmonary Disease | DX: J45.50 Severe persistent asthma, uncomplicated (principal) | CPT/HCPCS: 96372; J2357 ==

== ENCOUNTER 2020-12-25 08:10 | Emergency (ER) | payer OTHER, SELFPAY ==
--- NOTE | ~2020-12-25 | XR_ITS ---
EXAMINATION: XR CHEST CLINICAL INFORMATION: Chest pain COMPARISON: Chest x-ray 10/23/2020 TECHNIQUE: Frontal view of the chest was obtained. FINDINGS: Cardiac silhouette is normal in size. Atherosclerotic disease of the aortic arch. The lungs are adequately aerated. There is no lobar consolidation. No pleural effusion or pneumothorax. XR/XR chest 1V IMPRESSION: No acute pulmonary pathology.
--- NOTE | 2020-12-25 08:22 | ECG_ITS ---
Test Reason : CHEST PAIN Blood Pressure : / mmHG Vent. Rate : 084 BPM Atrial Rate : 084 BPM P-R Int : 214 ms QRS Dur : 104 ms QT Int : 388 ms P-R-T Axes : 054 -51 046 degrees QTc Int : 458 ms Sinus rhythm with 1st degree A-V block Left anterior fascicular block Abnormal ECG No significant changes seen Referred By: Kourtney Jones Electronically Signed By:NATALIA WEBER MD
[2020-12-25 08:27] VITALS: BP 139/84; PULSE 87; RESP 18; TEMP 37; O2SAT 93; BMI 37.5
--- NOTE | 2020-12-25 08:34 | ED.CHESTPAIN ---
HPI - Chest Pain General Chief Complaint: Chest Pain Stated Complaint: chest pain Time Seen by Provider: 12/25/20 08:19 History of Present Illness HPI narrative: Patient is 60-year-old female with a history of diabetes, hypertension, asthma. No previous history of smoking. Presented today with having right-sided chest pain that is been constant since last night. It is sharp in nature it is worse with touch. Not associated with worsening shortness of breath. Patient from home. No travel history no leg swelling. No history of blood clots. Patient from home. No history of stress test. Never had a stent. Never had a heart attack. Never had a stroke. Related Data Home Medications Medication Instructions Recorded Confirmed alcohol swabs pad TOPICAL DAILY 11/20/19 11/01/20 amlodipine 10 mg tablet 10 mg PO BEDTIME 11/20/19 11/01/20 blood sugar diagnostic #10 ea 11/20/19 11/01/20 blood-glucose meter #1 ea 11/20/19 11/01/20 buspirone 5 mg tablet 5 mg PO BID 11/20/19 11/01/20 calcium carbonate 600 mg (1,500 1 tab PO BID 11/20/19 11/01/20 mg)-vitamin D3 400 unit tablet cetirizine 10 mg tablet 10 mg PO BEDTIME 11/20/19 11/01/20 cyclobenzaprine 10 mg tablet 10 mg PO DAILY PRN 11/20/19 11/01/20 enalapril maleate 10 mg tablet 10 mg PO QAM 11/20/19 11/01/20 fluticasone propionate 220 1 puff PO BID 11/20/19 11/01/20 mcg/actuation HFA aerosol inhaler fluticasone propionate 50 1 spray INTRANASAL BID 11/20/19 11/01/20 mcg/actuation nasal spray,suspension glucose 4 gram chewable tablet 16 g PO 11/20/19 11/01/20 ipratropium 0.5 mg-albuterol 3 mg ml INHALATION Q6H PRN 11/20/19 11/01/20 (2.5 mg base)/3 mL nebulization soln lancets 33 gauge #100 ea 11/20/19 11/01/20 potassium chloride 20 mEq 20 meq PO BID 11/20/19 11/01/20 tablet,extended release(part/cryst) risperidone 0.5 mg tablet 0.5 mg PO BID 11/20/19 11/01/20 zolpidem 10 mg tablet 10 mg PO BEDTIME PRN 11/20/19 11/01/20 omeprazole 20 mg capsule,delayed 20 mg PO BID 11/23/19 11/01/20 release clonazepam 1 mg tablet (Klonopin) 1 mg PO BEDTIME 03/08/20 11/01/20 montelukast 10 mg tablet 10 mg PO DAILY 03/08/20 11/01/20 tramadol 50 mg tablet 50 mg PO BID PRN 03/08/20 11/01/20 acetaminophen 325 mg tablet 650 mg PO QID tab 07/03/20 11/01/20 meclizine 25 mg tablet 25 mg PO PRN tab 07/10/20 11/01/20 Previous Rx's Medication Instructions Recorded leg brace (Knee Support Brace) #2 ea 03/08/20 Culturelle 10 billion cell capsule 1 cap PO DAILY 30 Days #30 cap NS 04/14/20 (Lactobacillus rhamnosus GG) albuterol sulfate 90 mcg/actuation 2 puff INHALATION Q6H PRN #8.5 g 07/04/20 aerosol inhaler benzonatate 100 mg capsule 100 mg PO TID PRN #15 cap 07/04/20 (Tessalon Radha) levothyroxine 75 mcg tablet 75 mcg PO DAILY 90 Days #90 tab 07/10/20 metformin 500 mg tablet,extended 500 mg PO DAILY 30 Days #30 tab 07/10/20 release 24 hr omalizumab 150 mg/mL subcutaneous 300 mg (2 mL) SUBCUT Q2W #2 ml 07/10/20 syringe pravastatin 80 mg tablet 80 mg PO BEDTIME 30 Days #30 tab 07/10/20 gabapentin 400 mg capsule 400 mg PO BID #60 cap 08/15/20 tiotropium bromide 18 mcg capsule 1 cap INHALATION DAILY 30 Days #30 08/15/20 with inhalation device (Spiriva inh with HandiHaler) dextrose 40 % oral gel (Dex4 10 g PO Q15M PRN 30 Days #37.5 g 08/24/20 Glucose) hydrocortisone 2.5 % topical cream 1 appl MD BID PRN #30 g 08/30/20 with perineal applicator (Proctosol HC) albuterol sulfate 90 mcg/actuation 2 puff INHALATION Q4-6H PRN #6.7 g 09/29/20 aerosol inhaler benzonatate 200 mg capsule 200 mg PO BID PRN 5 Days #10 cap 09/29/20 cholecalciferol (vitamin D3) 50 50 mcg PO QAM #30 cap 10/19/20 mcg (2,000 unit) capsule docusate sodium 100 mg capsule 100 mg PO BID 30 Days #60 cap 10/20/20 bisacodyl 5 mg tablet,delayed 10 mg PO BID #90 tab 11/08/20 release Lactobacillus rhamnosus GG 10 1 cap PO DAILY 30 Days #30 cap 11/17/20 billion cell capsule (Culturelle) prednisone 10 mg tablet 40 mg PO DAILY 7 Days #28 tab 12/06/20 cefpodoxime 200 mg tablet 400 mg PO BID 7 Days #28 tab 12/07/20 plecanatide 3 mg tablet (Trulance) 3 mg PO DAILY 30 Days #30 tab 12/12/20 Allergies Allergy/AdvReac Type Severity Reaction Status Date / Time aspirin [Aspirin] Allergy Mild ITCHY Verified 12/06/20 13:28 THROAT azithromycin Allergy Unknown Unknown Verified 12/06/20 13:28 naproxen Allergy Unknown Unknown Verified 12/06/20 13:28 simvastatin Allergy Unknown Unknown Verified 12/06/20 13:28 onion [ONION] AdvReac Mild RED FACE Verified 12/06/20 13:28 Review of Systems Review of Systems: Positive right-sided chest pain No new shortness of breath No new coughing congestion upper respiratory symptoms Patient immunized for COVID No diaphoresis All systems reviewed otherwise negative PMFSH Past Medical History Attestation statement: The following information was validated with the patient. Medical History Bronchitis Bronchitis Cocaine abuse COPD exacerbation DVT (deep venous thrombosis) Hypothyroidism Low vitamin D level Menometrorrhagia Non-toxic multinodular goiter Spondylosis of cervical region without myelopathy or radiculopathy Surgical History H/O colonoscopy with polypectomy History of esophagogastroduodenoscopy (EGD) History of hysterectomy History of lithotripsy History of selective injection of anesthetic agent around lumbar nerve root Hx of right breast biopsy Family History Family History Father No problems noted. Mother Myocardial infarction CVA (cerebral vascular accident) Social History Social History Household Members: None Alcohol intake: never Patient Tobacco Use Status: Never used Tobacco Advance Directives: No Advance Directives Information Provided: No Patient : No Current occupational status: disabled Physical Exam Vital Signs: Vital Signs: Last Vital Signs Temp 97.9 F 12/25/20 11:43 Pulse 67 12/25/20 11:43 Resp 16 12/25/20 11:43 BP 142/89 H 12/25/20 11:43 Pulse Ox 97 12/25/20 11:43 Body Mass Index 37.5 Appearance: Alert. Oriented X3. No acute distress. Eyes: Pupils equal, round and reactive to light. ENT: Pharynx normal. Neck: Normal inspection. Neck supple. No lymph nodes noted. No crepitus CVS: Normal heart rate and rhythm. Pulses normal. Normal S1 and S2 Respiratory: No respiratory distress. Minimal wheezing bilaterally. Abdomen: Soft and nontender. No rigidity. No distention. good BS x4 Skin: Skin warm and dry. Normal skin color. Normal skin turgor. Extremities: No lower extremity edema. Neurovascular intact to all extremities. No Lacerations. No Rash Neuro: Oriented X 3. No motor deficit. No sensory deficit. Moving all extermities. No slurred speech MDM - Chest Pain MDM Narrative Medical decision making narrative: Patient's EKG showed a sinus pattern heart rate is 80 MD QRS QT within normal limits is no acute ST segment elevation. Patient has significant risk factor being hypertension and also diabetes. She is 60 years old. Her pain is atypical for ACS. Troponin is currently pending. X-ray pending. Two sets of heart enzymes are negative. Will discharge patient home. Close follow-up on an outpatient basis. In stable condition. Medical Records Data Attestation: I reviewed the patient's medical records. Lab Data Attestation: I reviewed the patient's lab results. Result diagrams: 12/25/20 08:52 12/25/20 08:52 Labs: Lab Results 12/25/20 12/25/20 12/25/20 Range/Units 08:52 08:52 08:52 WBC 6.6 (4.8-10.8) X10*3/uL RBC 4.68 (4.20-5.50) X10*6/uL Hgb 14.6 (12.0-16.0) g/dl Hct 43.9 (37.0-47.0) % MCV 93.8 (80.0-98.0) fL MCH 31.2 (27.0-33.0) pg MCHC 33.3 (31.0-35.0) g/dl RDW 13.4 (11.0-16.0) % Plt Count 297 (160-400) X10*3/uL MPV 9.6 (9.4-12.3) fL Immature Gran % (Auto) 0.2 (0.0-0.4) % Neut % (Auto) 54.1 (45-73) % Lymph % (Auto) 36.9 (20-40) % [place] % (Auto) 6.5 (2-11) % Eos % (Auto) 2.0 (0-4) % Baso % (Auto) 0.3 (0-2) % Lymph # (Auto) 2.4 (1.2-4.9) X10*3/uL [place] # (Auto) 0.4 (0.1-1.2) X10*3/uL Eos # (Auto) 0.1 (0.0-0.4) X10*3/uL Baso # (Auto) 0.0 (0.0-0.2) X10*3/uL Abs Immat Gran (auto) 0.01 (0.00-0.03) X10*3/uL Absolute Neuts (auto) 3.6 (2.0-8.3) x10*3/uL Absolute Nucleated RBC 0.000 (0.0-0.012) X10*3/uL Nucleated RBC % (auto) 0.0 (0.0-0.2) /100WBC Sodium 142 (135-145) mmol/L Potassium 3.7 (3.3-5.1) mmol/L Chloride 110 H (96-108) mmol/L Carbon Dioxide 22 (22-29) mmol/L Anion Gap 14 (12-20) BUN 16 (9-16) mg/dL Creatinine 0.85 (0.5-1.4) mg/dL Estim Creat Clear Calc 74.8 Estimated GFR > 60 Random Glucose 144 H (60-115) mg/dL Calcium 9.8 (8.4-10.2) mg/dL Troponin I High Sens < 3.5 (<3.5-17.0) ng/L 12/25/20 Range/Units 11:11 WBC (4.8-10.8) X10*3/uL RBC (4.20-5.50) X10*6/uL Hgb (12.0-16.0) g/dl Hct (37.0-47.0) % MCV (80.0-98.0) fL MCH (27.0-33.0) pg MCHC (31.0-35.0) g/dl RDW (11.0-16.0) % Plt Count (160-400) X10*3/uL MPV (9.4-12.3) fL Immature Gran % (Auto) (0.0-0.4) % Neut % (Auto) (45-73) % Lymph % (Auto) (20-40) % [place] % (Auto) (2-11) % Eos % (Auto) (0-4) % Baso % (Auto) (0-2) % Lymph # (Auto) (1.2-4.9) X10*3/uL [place] # (Auto) (0.1-1.2) X10*3/uL Eos # (Auto) (0.0-0.4) X10*3/uL Baso # (Auto) (0.0-0.2) X10*3/uL Abs Immat Gran (auto) (0.00-0.03) X10*3/uL Absolute Neuts (auto) (2.0-8.3) x10*3/uL Absolute Nucleated RBC (0.0-0.012) X10*3/uL Nucleated RBC % (auto) (0.0-0.2) /100WBC Sodium (135-145) mmol/L Potassium (3.3-5.1) mmol/L Chloride (96-108) mmol/L Carbon Dioxide (22-29) mmol/L Anion Gap (12-20) BUN (9-16) mg/dL Creatinine (0.5-1.4) mg/dL Estim Creat Clear Calc Estimated GFR Random Glucose (60-115) mg/dL Calcium (8.4-10.2) mg/dL Troponin I High Sens < 3.5 (<3.5-17.0) ng/L Discharge Plan Discharge Clinical Impression: Chest pain Patient Disposition: Home, Self-Care Instructions: Chest Pain (ED) Prescriptions: No Action Culturelle 10 billion cell capsule 1 cap PO DAILY 30 Days Qty: 30 RF: 3 omalizumab 150 mg/mL syringe 300 mg subcut Q2W Qty: 2 RF: 12 gabapentin 400 mg capsule 400 mg PO BID Qty: 60 RF: 5 Spiriva with HandiHaler 18 mcg capsule, w/inhalation device 1 cap inhalation DAILY 30 Days Qty: 30 RF: 6 dextrose [Dex4 Glucose] 40 % gel 10 g PO Q15M PRN (Reason: hypoglycemia) 30 Days Qty: 37.5 RF: 5 hydrocortisone [Proctosol HC] 2.5 % cream with perineal applicator 1 appl MD BID PRN (Reason: hemorrhoids) Qty: 30 RF: 6 cholecalciferol (vitamin D3) 50 mcg (2,000 unit) capsule 50 mcg PO QAM Qty: 30 RF: 3 docusate sodium 100 mg capsule 100 mg PO BID 30 Days Qty: 60 RF: 5 bisacodyl 5 mg tablet,delayed release (DR/EC) 10 mg PO BID Qty: 90 RF: 6 Culturelle 10 billion cell capsule 1 cap PO DAILY 30 Days Qty: 30 RF: 6 cefpodoxime 200 mg tablet 400 mg PO BID 7 Days Qty: 28 RF: 0 Trulance 3 mg tablet 3 mg PO DAILY 30 Days Qty: 30 RF: 5 albuterol sulfate 90 mcg/actuation HFA aerosol inhaler 2 puff inhalation Q6H PRN (Reason: bronchitis) Qty: 8.5 RF: 0 benzonatate [Tessalon Perles] 100 mg capsule 100 mg PO TID PRN (Reason: cough) Qty: 15 RF: 0 benzonatate 200 mg capsule 200 mg PO BID PRN (Reason: cough) 5 Days Qty: 10 RF: 0 albuterol sulfate 90 mcg/actuation HFA aerosol inhaler 2 puff inhalation Q4-6H PRN (Reason: shortness of breath or wheezing) Qty: 6.7 RF: 0 tramadol 50 mg tablet 50 mg PO BID PRNRF: 0 montelukast 10 mg tablet 10 mg PO DAILY RF: 0 clonazepam [Klonopin] 1 mg tablet 1 mg PO BEDTIME RF: 0 (DME) Knee Support Brace Misc See Rx Instructions .ROUTE .MEDSUPPLY Qty: 2 RF: 0 levothyroxine 75 mcg tablet 75 mcg PO DAILY 90 Days Qty: 90 RF: 2 metformin 500 mg tablet extended release 24 hr 500 mg PO DAILY 30 Days Qty: 30 RF: 6 pravastatin 80 mg tablet 80 mg PO BEDTIME 30 Days Qty: 30 RF: 6 glucose 4 gram tablet,chewable 16 g PO RF: 0 ipratropium-albuterol 0.5 mg-3 mg(2.5 mg base)/3 mL solution for nebulization inhalation Q6H PRNRF: 0 alcohol swabs Pads, Medicated topical DAILY RF: 0 zolpidem 10 mg tablet 10 mg PO BEDTIME PRNRF: 0 buspirone 5 mg tablet 5 mg PO BID RF: 0 fluticasone propionate 50 mcg/actuation spray,suspension 1 spray intranasal BID RF: 0 risperidone 0.5 mg tablet 0.5 mg PO BID RF: 0 amlodipine 10 mg tablet 10 mg PO BEDTIME RF: 0 enalapril maleate 10 mg tablet 10 mg PO QAM RF: 0 cyclobenzaprine 10 mg tablet 10 mg PO DAILY PRNRF: 0 (DME) lancets 33 gauge misc See Rx Instructions ea Not Applicable DAILY Qty: 100 RF: 0 Flovent HFA 220 mcg/actuation HFA aerosol inhaler 1 puff PO BID RF: 0 (DME) FreeStyle Lite Strips Strip See Rx Instructions ea Not Applicable DAILY Qty: 10 RF: 0 calcium carbonate-vitamin D3 600 mg(1,500mg) -400 unit tablet 1 tab PO BID RF: 0 potassium chloride 20 mEq tablet,ER particles/crystals 20 meq PO BID RF: 0 cetirizine 10 mg tablet 10 mg PO BEDTIME RF: 0 (DME) blood-glucose meter Kit See Rx Instructions ea .ROUTE DAILY Qty: 1 RF: 0 omeprazole 20 mg capsule,delayed release(DR/EC) 20 mg PO BID RF: 0 acetaminophen 325 mg tablet 650 mg PO QID RF: 0 meclizine 25 mg tablet 25 mg PO PRN (Reason: dizziness) RF: 0 prednisone 10 mg tablet 40 mg PO DAILY 7 Days Qty: 28 RF: 0 Print Language: Nepali
[2020-12-25 09:00] LABS: MANUAL DIFF FLAG NO
[2020-12-25 09:06] LABS: Basophils Percent Auto 0.3 % (0-2); Eosinophils Absolute Auto 0.1 X10*3/uL (0.0-0.4); Hematocrit 43.9 % (37.0-47.0); Hemoglobin 14.6 g/dl (12.0-16.0); Imm Gran Abs Auto 0.01 X10*3/uL (0.00-0.03); Imm Gran Pct Auto 0.2 % (0.0-0.4); Lymphocytes Absolute Auto 2.4 X10*3/uL (1.2-4.9); Lymphocytes Percent Auto 36.9 % (20-40); Mean Corpuscular HGB Conc 33.3 g/dl (31.0-35.0); Mean Corpuscular Hemoglobin 31.2 pg (27.0-33.0); Mean Corpuscular Volume 93.8 fL (80.0-98.0); Mean Platelet Volume 9.6 fL (9.4-12.3); Monocytes Absolute Auto 0.4 X10*3/uL (0.1-1.2); Monocytes Percent Auto 6.5 % (2-11); Neutrophils Absolute Auto 3.6 x10*3/uL (2.0-8.3); Neutrophils Percent Auto 54.1 % (45-73); Platelet Count 297 X10*3/uL (160-400); Red Blood Count 4.68 X10*6/uL (4.20-5.50); Red Cell Distribution Width 13.4 % (11.0-16.0); White Blood Count 6.6 X10*3/uL (4.8-10.8)
[2020-12-25 09:21] LABS: Troponin-I High Sensitivity < 3.5 ng/L (<3.5-17.0)
[2020-12-25 09:24] LABS: Anion Gap 14 (12-20); Blood Urea Nitrogen 16 mg/dL (9-16); Calcium 9.8 mg/dL (8.4-10.2); Carbon Dioxide 22 mmol/L (22-29); Chloride 110 mmol/L (96-108); Creatinine Clr Calc Pharmacy 74.8; Estimated Glomerular Filt Rate > 60; Glucose Random 144 mg/dL (60-115); Potassium 3.7 mmol/L (3.3-5.1); Sodium 142 mmol/L (135-145)
[2020-12-25 11:43] VITALS: BP 142/89; PULSE 67; RESP 16; TEMP 36.6; O2SAT 97
[2020-12-25 11:44] LABS: Troponin-I High Sensitivity < 3.5 ng/L (<3.5-17.0)
== END 2020-12-25 12:00 | disposition home or self-care (01) ==
PROVIDERS: Emergency Provider Emergency Medicine Emergency Medical Services; PCP Nurse Practitioner Primary Care
DX: R07.9 Chest pain, unspecified (principal); E11.9 Type 2 diabetes mellitus without complications; I10 Essential (primary) hypertension; Z79.899 Other long term (current) drug therapy
CPT/HCPCS: 36415; 71045; 80048; 84484; 85025; 93005; 99283; 99284

== ENCOUNTER 2021-01-01 12:32 | Outpatient (REF) | payer OTHER, SELFPAY | END 2021-01-01 12:33 | disposition home or self-care (01) | LOC: HO.LAB 12:32 | PROVIDERS: PCP Nurse Practitioner Primary Care; Visit Provider Internal Medicine | DX: Z20.822 Contact with and (suspected) exposure to COVID-19 (principal) | CPT/HCPCS: C9803; U0003; U0005 ==

== ENCOUNTER 2021-01-02 10:55 | Outpatient (REF) | payer OTHER, SELFPAY | END 2021-01-02 10:56 | disposition home or self-care (01) | LOC: HO.MDS 10:55 | PROVIDERS: PCP Nurse Practitioner Primary Care; Visit Provider Internal Medicine Pulmonary Disease | DX: J45.50 Severe persistent asthma, uncomplicated (principal) | CPT/HCPCS: 96372; J2357 ==

== ENCOUNTER 2021-01-12 11:30 | Outpatient (REF) | payer OTHER, SELFPAY ==
--- NOTE | ~2021-01-12 | MM_ITS ---
EXAMINATION: MM DIAGNOSTIC DIGITAL BREAST TOMOSYNTHESIS, BILATERAL US DIAGNOSTIC ULTRASOUND BREAST, RIGHT CLINICAL INFORMATION: Recent right breast pain subareolar region with course of antibiotics, seen at outside facility. Symptoms have expanded slightly decreased, almost resolved. No palpable mass or discharge. Due for yearly. No known family history breast cancer. The lifetime risk of breast cancer based on the Tyrer-Cuzick Model is 5%. COMPARISON: Mammography: 10/12/2019, 05/05/2018, 04/30/2017 TECHNIQUE: Digital breast tomosynthesis is performed in both the craniocaudal and mediolateral oblique views along with computer-aided detection (CAD). Synthesized 2D images are generated from the tomosynthesis. Additional bilateral CC and additional bilateral MLO views are provided. Ultrasound right breast is targeted to the retroareolar and periareolar region. Grayscale imaging and color Doppler are performed without and with harmonics. FINDINGS: There are scattered areas of fibroglandular density (ACR BI-RADS breast composition Category b). Breast tissue borders on predominantly fatty. There is no interval significant mass or architectural abnormality or developing density. No skin thickening or coarsening of the Eric's ligaments. A biopsy clip marker again seen anterior lower inner right breast. No interval duct ectasia. No abnormal calcifications. The axilla are unremarkable. No significant changes. Ultrasound demonstrates no cystic or solid mass or architectural abnormality. No focal duct ectasia. No hyperemia. No skin thickening or edema tracking in soft tissue planes. Results are discussed with the patient at time of visit, using an wind turbine service technician. MM/MM tomosynthesis diagnostic RT IMPRESSION: No mammographic evidence of malignancy or inflammatory changes. Unremarkable targeted right breast ultrasound. ASSESSMENT: BI-RADS 1: Negative RECOMMENDATION: 1. Patient may be managed and followed clinically for the recent right breast symptoms as needed. 2. Otherwise, routine annual screening mammography. This patient's information was entered into a reminder system with a target due date for their next mammogram.
== END 2021-01-12 11:31 | disposition home or self-care (01) ==
LOC: HO.MAMMO 11:30
PROVIDERS: Visit Provider Nurse Practitioner Primary Care
DX: N64.4 Mastodynia (principal)
CPT/HCPCS: 76642; 77061; 77065

== ENCOUNTER → 2021-01-16 13:51 | Outpatient (BNVA) | payer OTHER, MEDICARE, SELFPAY | PROVIDERS: PCP Nurse Practitioner Primary Care; Visit Provider Dietitian, Registered | DX: E11.65 Type 2 diabetes mellitus with hyperglycemia (principal); E03.9 Hypothyroidism, unspecified; E04.2 Nontoxic multinodular goiter; E55.9 Vitamin D deficiency, unspecified; J44.1 Chronic obstructive pulmonary disease with (acute) exacerbation; J45.50 Severe persistent asthma, uncomplicated; Z82.49 Family history of ischemic heart disease and other diseases of the circulatory system; Z88.6 Allergy status to analgesic agent; Z88.1 Allergy status to other antibiotic agents; Z88.8 Allergy status to other drugs, medicaments and biological substances; Z91.018 Allergy to other foods; Z71.3 Dietary counseling and surveillance | CPT/HCPCS: 97803 ==

== ENCOUNTER 2021-01-17 09:40 | Outpatient (REF) | payer OTHER, SELFPAY | END 2021-01-17 09:41 | disposition home or self-care (01) | LOC: HO.MDS 09:40 | PROVIDERS: PCP Nurse Practitioner Primary Care; Visit Provider Internal Medicine Pulmonary Disease | DX: J45.50 Severe persistent asthma, uncomplicated (principal) | CPT/HCPCS: 96372; J2357 ==

== ENCOUNTER 2021-01-18 12:47 | Outpatient (REF) | payer OTHER, SELFPAY | END 2021-01-18 12:48 | disposition home or self-care (01) | LOC: HO.LAB 12:47 | PROVIDERS: Visit Provider Internal Medicine | DX: Z20.822 Contact with and (suspected) exposure to COVID-19 (principal) | CPT/HCPCS: 99212; C9803; U0003; U0005 ==

== ENCOUNTER 2021-01-22 10:22 | Emergency (ER) | payer OTHER, SELFPAY ==
[2021-01-22 10:44] VITALS: BP 151/95; PULSE 90; RESP 18; TEMP 36.6; O2SAT 95; BMI 36.9
[2021-01-22 11:05] LABS: Appearance Urine CLOUDY; Color Urine DK YELLOW; Glucose Urine UA NEG (NEG); Leukocyte Esterase Urine 3+ (NEG); Nitrite Urine NEG (NEG); PH 6.5 (5.0-8.0); Specific Gravity - Urine 1.015 (1.005-1.025); UACC Culture Trigger YES; Urine Blood 3+ (NEG); Urine Ketones NEG (NEG); Urine Protein 2+ MG/DL (NEG-TRACE)
[2021-01-22 11:25] LABS: Bacteria Urine 1+ /LPF; RBC Urine TNTC /HPF (0)
[2021-01-22 11:26] LABS: Squamous Epithelial Cell Urine TRACE /LPF
[2021-01-22 11:48] VITALS: BP 151/95; PULSE 90; RESP 18; TEMP 36.6; O2SAT 95
--- NOTE | 2021-01-22 12:03 | ED_ITS ---
HPI - Female Genitourinary General Chief complaint: Urogenital-Female Stated complaint: Pain when urinating Time Seen by Provider: 01/22/21 12:03 Source: patient Mode of arrival: ambulatory Limitations: no limitations History of Present Illness HPI Narrative: dysuria for the past week, she at times noticed a little blood. patient states shehas chills. MD elicited complaint: dysuria and UTI Onset (ago): week(s) Severity: moderate Quality of pain: burning Related Data Home Medications Medication Instructions Recorded Confirmed alcohol swabs pad TOPICAL DAILY 11/20/19 11/01/20 amlodipine 10 mg tablet 10 mg PO BEDTIME 11/20/19 11/01/20 blood sugar diagnostic #10 ea 11/20/19 11/01/20 blood-glucose meter #1 ea 11/20/19 11/01/20 buspirone 5 mg tablet 5 mg PO BID 11/20/19 11/01/20 calcium carbonate 600 mg (1,500 1 tab PO BID 11/20/19 11/01/20 mg)-vitamin D3 400 unit tablet cetirizine 10 mg tablet 10 mg PO BEDTIME 11/20/19 11/01/20 cyclobenzaprine 10 mg tablet 10 mg PO DAILY PRN 11/20/19 11/01/20 enalapril maleate 10 mg tablet 10 mg PO QAM 11/20/19 11/01/20 fluticasone propionate 220 1 puff PO BID 11/20/19 11/01/20 mcg/actuation HFA aerosol inhaler fluticasone propionate 50 1 spray INTRANASAL BID 11/20/19 11/01/20 mcg/actuation nasal spray,suspension glucose 4 gram chewable tablet 16 g PO 11/20/19 11/01/20 ipratropium 0.5 mg-albuterol 3 mg ml INHALATION Q6H PRN 11/20/19 11/01/20 (2.5 mg base)/3 mL nebulization soln lancets 33 gauge #100 ea 11/20/19 11/01/20 potassium chloride 20 mEq 20 meq PO BID 11/20/19 11/01/20 tablet,extended release(part/cryst) risperidone 0.5 mg tablet 0.5 mg PO BID 11/20/19 11/01/20 zolpidem 10 mg tablet 10 mg PO BEDTIME PRN 11/20/19 11/01/20 omeprazole 20 mg capsule,delayed 20 mg PO BID 11/23/19 11/01/20 release clonazepam 1 mg tablet (Klonopin) 1 mg PO BEDTIME 03/08/20 11/01/20 montelukast 10 mg tablet 10 mg PO DAILY 03/08/20 11/01/20 tramadol 50 mg tablet 50 mg PO BID PRN 03/08/20 11/01/20 acetaminophen 325 mg tablet 650 mg PO QID tab 07/03/20 11/01/20 meclizine 25 mg tablet 25 mg PO PRN tab 07/10/20 11/01/20 Previous Rx's Medication Instructions Recorded leg brace (Knee Support Brace) #2 ea 03/08/20 Culturelle 10 billion cell capsule 1 cap PO DAILY 30 Days #30 cap NS 04/14/20 (Lactobacillus rhamnosus GG) albuterol sulfate 90 mcg/actuation 2 puff INHALATION Q6H PRN #8.5 g 07/04/20 aerosol inhaler benzonatate 100 mg capsule 100 mg PO TID PRN #15 cap 07/04/20 (Tessalon Perles) levothyroxine 75 mcg tablet 75 mcg PO DAILY 90 Days #90 tab 07/10/20 metformin 500 mg tablet,extended 500 mg PO DAILY 30 Days #30 tab 07/10/20 release 24 hr omalizumab 150 mg/mL subcutaneous 300 mg (2 mL) SUBCUT Q2W #2 ml 07/10/20 syringe pravastatin 80 mg tablet 80 mg PO BEDTIME 30 Days #30 tab 07/10/20 gabapentin 400 mg capsule 400 mg PO BID #60 cap 08/15/20 dextrose 40 % oral gel (Dex4 10 g PO Q15M PRN 30 Days #37.5 g 08/24/20 Glucose) hydrocortisone 2.5 % topical cream 1 appl FL BID PRN #30 g 08/30/20 with perineal applicator (Proctosol HC) albuterol sulfate 90 mcg/actuation 2 puff INHALATION Q4-6H PRN #6.7 g 09/29/20 aerosol inhaler benzonatate 200 mg capsule 200 mg PO BID PRN 5 Days #10 cap 09/29/20 cholecalciferol (vitamin D3) 50 50 mcg PO QAM #30 cap 10/19/20 mcg (2,000 unit) capsule docusate sodium 100 mg capsule 100 mg PO BID 30 Days #60 cap 10/20/20 bisacodyl 5 mg tablet,delayed 10 mg PO BID #90 tab 11/08/20 release Lactobacillus rhamnosus GG 10 1 cap PO DAILY 30 Days #30 cap 11/17/20 billion cell capsule (Culturelle) prednisone 10 mg tablet 40 mg PO DAILY 7 Days #28 tab 12/06/20 cefpodoxime 200 mg tablet 400 mg PO BID 7 Days #28 tab 12/07/20 plecanatide 3 mg tablet (Trulance) 3 mg PO DAILY 30 Days #30 tab 12/12/20 tiotropium bromide 18 mcg capsule 1 cap INHALATION DAILY 30 Days #30 01/15/21 with inhalation device (Spiriva inh with HandiHaler) tiotropium bromide 18 mcg capsule 1 cap INHALATION DAILY 30 Days #30 01/18/21 with inhalation device (Spiriva inh with HandiHaler) cephalexin 500 mg capsule 500 mg PO Q6H #20 cap 01/22/21 phenazopyridine 100 mg tablet 100 mg PO TID #6 tab 01/22/21 (Pyridium) Allergies Allergy/AdvReac Type Severity Reaction Status Date / Time aspirin [Aspirin] Allergy Mild ITCHY Verified 01/18/21 13:07 THROAT azithromycin Allergy Unknown Unknown Verified 01/18/21 13:07 naproxen Allergy Unknown Unknown Verified 01/18/21 13:07 simvastatin Allergy Unknown Unknown Verified 01/18/21 13:07 onion [ONION] AdvReac Mild RED FACE Verified 01/18/21 13:07 Review of Systems Constitutional: Constitutional: Reports no additional constitutional complaints Eyes: Eyes: Reports no additional eye complaints ENT: Denies dizziness Cardiovascular: Cardiovascular: Reports no additional cardiovascular complaints Respiratory: Respiratory: Reports as per HPI Gastrointestinal: Gastrointestinal: Reports no additional gastrointestinal complaints Genitourinary: Genitourinary: Reports no additional female genitourinary complaints Musculoskeletal: Musculoskeletal: Reports no additional musculoskeletal complaints Integumentary/Breasts: Skin/Breast: Denies rash Neurologic: Reports system reviewed and no additional complaints, except as documented, Denies dizziness and Denies Sensory deficit (Neuro) Psychiatric: Psychiatric: Denies anxiety PMFSH Past Medical History Medical History Bronchitis Bronchitis Cocaine abuse COPD exacerbation DVT (deep venous thrombosis) Hypothyroidism Low vitamin D level Menometrorrhagia Non-toxic multinodular goiter Spondylosis of cervical region without myelopathy or radiculopathy Surgical History H/O colonoscopy with polypectomy History of esophagogastroduodenoscopy (EGD) History of hysterectomy History of lithotripsy History of selective injection of anesthetic agent around lumbar nerve root Hx of right breast biopsy Family History Family History Father No problems noted. Mother Myocardial infarction CVA (cerebral vascular accident) Social History Social History Household Members: None Alcohol intake: never Patient Tobacco Use Status: Never used Tobacco Advance Directives: No Advance Directives Information Provided: No Current occupational status: disabled Physical Exam Vital Signs: Vital Signs: Last Vital Signs Temp 98 F 01/22/21 11:48 Pulse 90 01/22/21 11:48 Resp 18 01/22/21 11:48 BP 151/95 H 01/22/21 11:48 Pulse Ox 95 01/22/21 11:48 BMI result Body Mass Index 36.9 Const: General: healthy appearing Nutritional Appearance: average body habitus Orientation/consciousness: oriented to person and patient oriented x3 Limitations: no limitations HENMT: Head: Yes normal to inspection Ears: external ears normal General nose exam: Normal external nose present Mouth: Normal oral and palatal mucosa present and oropharynx normal Throat: Yes posterior oropharynx normal Eyes: General: appearance normal, both eyes and all related structures Neck: Other: supple Neck: Yes normal visual inspection Chest: Chest palpation & inspection: normal inspection of the chest Resp: Auscultation: clear to auscultation bilaterally Cardio: Jugular venous distension: no JVD Rate: regular rate Rhythm: regular rhythm Heart sounds: S1 normal heart sound present and S2 normal heart sound present GI: Inspection: Yes normal to inspection Palpation (GI): Soft to palpation, nontender and No hepatosplenomegaly present Auscultation: normal bowel sounds : General: Yes no CVA tenderness Back/Spine/Pelvis: Back: no CVA tenderness Skin: General skin exam: no rashes or lesions noted Neuro: General: oriented to person and patient oriented x3 Cranial nerves: Yes CN's II-XII intact bilaterally Motor exam (neuro): 5/5 motor strength present throughout Sensory Exam: No Sensory deficit (Neuro) Extrem: General: Yes normal to inspection Psych: Appearance: grossly normal MDM - Female Genitourinary Lab Data Labs: Lab Results 01/22/21 Range/Units 10:56 Urine Color DK YELLOW Urine Appearance CLOUDY Urine pH 6.5 (5.0-8.0) Ur Specific [place] 1.015 (1.005-1.025) Urine Protein 2+ H (NEG-TRACE) MG/DL Urine Glucose (UA) NEG (NEG) MG/DL Urine Ketones NEG (NEG) MG/DL Urine Blood 3+ H (NEG) Urine Nitrite NEG (NEG) Ur Leukocyte Esterase 3+ H (NEG) Urine RBC TNTC H (0) /HPF Urine WBC 15-29 H (0-4) /HPF Ur Squamous Epith Cells TRACE /LPF Urine Bacteria 1+ /LPF Discharge Plan Discharge Clinical Impression: Urinary tract infection, Cystitis Patient Disposition: Home, Self-Care Instructions: Urinary Tract Infection in Women (ED) Prescriptions: New phenazopyridine [Pyridium] 100 mg tablet 100 mg PO TID Qty: 6 RF: 0 cephalexin 500 mg capsule 500 mg PO Q6H Qty: 20 RF: 0 No Action Culturelle 10 billion cell capsule 1 cap PO DAILY 30 Days Qty: 30 RF: 3 omalizumab 150 mg/mL syringe 300 mg subcut Q2W Qty: 2 RF: 12 gabapentin 400 mg capsule 400 mg PO BID Qty: 60 RF: 5 dextrose [Dex4 Glucose] 40 % gel 10 g PO Q15M PRN (Reason: hypoglycemia) 30 Days Qty: 37.5 RF: 5 hydrocortisone [Proctosol HC] 2.5 % cream with perineal applicator 1 appl FL BID PRN (Reason: hemorrhoids) Qty: 30 RF: 6 cholecalciferol (vitamin D3) 50 mcg (2,000 unit) capsule 50 mcg PO QAM Qty: 30 RF: 3 docusate sodium 100 mg capsule 100 mg PO BID 30 Days Qty: 60 RF: 5 bisacodyl 5 mg tablet,delayed release (DR/EC) 10 mg PO BID Qty: 90 RF: 6 Culturelle 10 billion cell capsule 1 cap PO DAILY 30 Days Qty: 30 RF: 6 cefpodoxime 200 mg tablet 400 mg PO BID 7 Days Qty: 28 RF: 0 Trulance 3 mg tablet 3 mg PO DAILY 30 Days Qty: 30 RF: 5 Spiriva with HandiHaler 18 mcg capsule, w/inhalation device 1 cap inhalation DAILY 30 Days Qty: 30 RF: 6 albuterol sulfate 90 mcg/actuation HFA aerosol inhaler 2 puff inhalation Q6H PRN (Reason: bronchitis) Qty: 8.5 RF: 0 benzonatate [Tessalon Perles] 100 mg capsule 100 mg PO TID PRN (Reason: cough) Qty: 15 RF: 0 benzonatate 200 mg capsule 200 mg PO BID PRN (Reason: cough) 5 Days Qty: 10 RF: 0 albuterol sulfate 90 mcg/actuation HFA aerosol inhaler 2 puff inhalation Q4-6H PRN (Reason: shortness of breath or wheezing) Qty: 6.7 RF: 0 tramadol 50 mg tablet 50 mg PO BID PRNRF: 0 montelukast 10 mg tablet 10 mg PO DAILY RF: 0 clonazepam [Klonopin] 1 mg tablet 1 mg PO BEDTIME RF: 0 (DME) Knee Support Brace Misc See Rx Instructions .ROUTE .MEDSUPPLY Qty: 2 RF: 0 levothyroxine 75 mcg tablet 75 mcg PO DAILY 90 Days Qty: 90 RF: 2 metformin 500 mg tablet extended release 24 hr 500 mg PO DAILY 30 Days Qty: 30 RF: 6 pravastatin 80 mg tablet 80 mg PO BEDTIME 30 Days Qty: 30 RF: 6 glucose 4 gram tablet,chewable 16 g PO RF: 0 ipratropium-albuterol 0.5 mg-3 mg(2.5 mg base)/3 mL solution for nebulization inhalation Q6H PRNRF: 0 alcohol swabs Pads, Medicated topical DAILY RF: 0 zolpidem 10 mg tablet 10 mg PO BEDTIME PRNRF: 0 buspirone 5 mg tablet 5 mg PO BID RF: 0 fluticasone propionate 50 mcg/actuation spray,suspension 1 spray intranasal BID RF: 0 risperidone 0.5 mg tablet 0.5 mg PO BID RF: 0 amlodipine 10 mg tablet 10 mg PO BEDTIME RF: 0 enalapril maleate 10 mg tablet 10 mg PO QAM RF: 0 cyclobenzaprine 10 mg tablet 10 mg PO DAILY PRNRF: 0 (DME) lancets 33 gauge misc See Rx Instructions ea Not Applicable DAILY Qty: 100 RF: 0 Flovent HFA 220 mcg/actuation HFA aerosol inhaler 1 puff PO BID RF: 0 (DME) FreeStyle Lite Strips Strip See Rx Instructions ea Not Applicable DAILY Qty: 10 RF: 0 calcium carbonate-vitamin D3 600 mg(1,500mg) -400 unit tablet 1 tab PO BID RF: 0 potassium chloride 20 mEq tablet,ER particles/crystals 20 meq PO BID RF: 0 cetirizine 10 mg tablet 10 mg PO BEDTIME RF: 0 (DME) blood-glucose meter Kit See Rx Instructions ea .ROUTE DAILY Qty: 1 RF: 0 omeprazole 20 mg capsule,delayed release(DR/EC) 20 mg PO BID RF: 0 acetaminophen 325 mg tablet 650 mg PO QID RF: 0 meclizine 25 mg tablet 25 mg PO PRN (Reason: dizziness) RF: 0 prednisone 10 mg tablet 40 mg PO DAILY 7 Days Qty: 28 RF: 0 Spiriva with HandiHaler 18 mcg capsule, w/inhalation device 1 cap inhalation DAILY 30 Days Qty: 30 RF: 6 Referrals: Sariah Vickers NP [Primary Care Provider] - 1 week
[2021-01-22] MEDS: cephALEXin 500 MG CAPSULE PO (12:29)
[2021-01-22] MEDS: Phenazopyridine HCL 100 MG TABLET PO (12:29)
== END 2021-01-22 12:56 | disposition home or self-care (01) ==
PROVIDERS: Emergency Provider Emergency Medicine; PCP Nurse Practitioner Primary Care
DX: N30.00 Acute cystitis without hematuria (principal); I10 Essential (primary) hypertension; E78.5 Hyperlipidemia, unspecified; F17.200 Nicotine dependence, unspecified, uncomplicated
CPT/HCPCS: 81001; 81003; 87086; 87088; 87186; 99283

== ENCOUNTER 2021-01-30 13:01 | Outpatient (REF) | payer OTHER, SELFPAY ==
[2021-01-31 11:17] LABS: BV Int Neg Control Negative (Negative); BV Int Pos Control Positive (Positive)
== END 2021-01-30 13:02 | disposition home or self-care (01) ==
LOC: HO.LAB 13:01
PROVIDERS: PCP Nurse Practitioner Primary Care; Visit Provider Obstetrics & Gynecology
DX: N76.0 Acute vaginitis (principal)
CPT/HCPCS: 87480; 87510; 87660; 99212

== ENCOUNTER 2021-01-31 09:57 | Outpatient (REF) | payer OTHER, SELFPAY | END 2021-01-31 09:58 | disposition home or self-care (01) | LOC: HO.MDS 09:57 | PROVIDERS: PCP Nurse Practitioner Primary Care; Visit Provider Internal Medicine Pulmonary Disease | DX: J45.50 Severe persistent asthma, uncomplicated (principal) | CPT/HCPCS: 96372; J2357 ==

== ENCOUNTER 2021-02-14 09:38 | Outpatient (REF) | payer OTHER, SELFPAY | END 2021-02-14 09:39 | disposition home or self-care (01) | LOC: HO.MDS 09:38 | PROVIDERS: PCP Nurse Practitioner Primary Care; Visit Provider Internal Medicine Pulmonary Disease | DX: J45.50 Severe persistent asthma, uncomplicated (principal) | CPT/HCPCS: 96372; J2357 ==

== ENCOUNTER → 2021-02-21 15:59 | Outpatient (BNVA) | payer OTHER, SELFPAY | PROVIDERS: PCP Nurse Practitioner Primary Care; Visit Provider Anesthesiology | DX: M47.816 Spondylosis without myelopathy or radiculopathy, lumbar region (principal); M17.0 Bilateral primary osteoarthritis of knee | CPT/HCPCS: Q3014 ==

== ENCOUNTER 2021-02-28 11:18 | Outpatient (REF) | payer OTHER, SELFPAY | END 2021-02-28 11:19 | disposition home or self-care (01) | LOC: HO.MDS 11:18 | PROVIDERS: PCP Nurse Practitioner Primary Care; Visit Provider Internal Medicine Pulmonary Disease | DX: J45.50 Severe persistent asthma, uncomplicated (principal) | CPT/HCPCS: 96372; J2357 ==

== ENCOUNTER 2021-03-01 11:24 | Outpatient (REF) | payer OTHER, SELFPAY ==
--- NOTE | ~2021-03-01 | XR_ITS ---
EXAMINATION: XR CHEST CLINICAL INFORMATION: Acute lower respiratory infection. COMPARISON: None TECHNIQUE: 2 views of the chest were obtained. FINDINGS: The lungs are expanded with platelike atelectasis or scarring in the left lung base. Rest of lungs are clear. The heart size and progress clarities normal. No gross bony abnormality seen. XR/XR chest 2V IMPRESSION: Left lower lobe platelike atelectasis.
== END 2021-03-01 11:25 | disposition home or self-care (01) ==
LOC: HO.XRAY 11:24
PROVIDERS: Absent Provider Nurse Practitioner Primary Care; PCP Nurse Practitioner Primary Care; Visit Provider Emergency Medicine
DX: J22 Unspecified acute lower respiratory infection (principal)
CPT/HCPCS: 71046

== ENCOUNTER → 2021-03-02 12:13 | Outpatient (BNVA) | payer OTHER, SELFPAY | PROVIDERS: PCP Nurse Practitioner Primary Care; Visit Provider Dietitian, Registered | DX: E11.65 Type 2 diabetes mellitus with hyperglycemia (principal); Z79.84 Long term (current) use of oral hypoglycemic drugs; Z71.3 Dietary counseling and surveillance | CPT/HCPCS: 97803 ==

== ENCOUNTER → 2021-03-08 09:52 | Outpatient (BNVA) | payer OTHER, SELFPAY | PROVIDERS: PCP Family Medicine; Visit Provider Nurse Practitioner Family | DX: M79.7 Fibromyalgia (principal); M25.561 Pain in right knee; M25.562 Pain in left knee; G89.29 Other chronic pain | CPT/HCPCS: 99212 ==

== ENCOUNTER 2021-03-12 11:00 | Outpatient (RCR) | payer OTHER, SELFPAY | END 2021-04-11 13:54 | disposition home or self-care (01) | LOC: HO.PT 11:00 | PROVIDERS: PCP Nurse Practitioner Primary Care; Visit Provider Nurse Practitioner Primary Care | DX: R42 Dizziness and giddiness (principal) | CPT/HCPCS: 95992; 97112; 97161 ==

== ENCOUNTER 2021-03-16 09:26 | Outpatient (REF) | payer OTHER, SELFPAY | END 2021-03-16 09:27 | disposition home or self-care (01) | LOC: HO.MDS 09:26 | PROVIDERS: PCP Nurse Practitioner Primary Care; Visit Provider Internal Medicine Pulmonary Disease | DX: J45.50 Severe persistent asthma, uncomplicated (principal) | CPT/HCPCS: 96372; J2357 ==

== ENCOUNTER 2021-03-19 12:04 | Outpatient (REF) | payer OTHER, SELFPAY ==
[2021-03-19 14:07] LABS: Estimated Average Glucose 157 mg/dL; Hemoglobin A1c % 7.1 %
[2021-03-19 14:19] LABS: Alanine Aminotransferase 14 U/L (0-31); Albumin Level 4.3 g/dL (3.5-5.0); Alkaline Phosphatase 84 U/L (39-117); Anion Gap 11 (12-20); Aspartate Amino Transferase 21 U/L (5-31); Bilirubin Total 0.3 mg/dL (0.0-1.0); Blood Urea Nitrogen 15 mg/dL (9-16); Carbon Dioxide 28 mmol/L (22-29); Chloride 109 mmol/L (96-108); Estimated Glomerular Filt Rate > 60; Glucose Random 118 mg/dL (60-115); Potassium 4.5 mmol/L (3.3-5.1); Sodium 143 mmol/L (135-145); Total Protein 7.3 g/dL (6.5-8.0)
[2021-03-21 11:41] LABS: Alpha Fetoprotein 2.3 ng/mL
== END 2021-03-19 12:05 | disposition home or self-care (01) ==
LOC: HO.LAB 12:04
PROVIDERS: PCP Nurse Practitioner Primary Care; Referring Provider Nurse Practitioner Primary Care; Visit Provider Nurse Practitioner
DX: K21.9 Gastro-esophageal reflux disease without esophagitis (principal); K75.81 Nonalcoholic steatohepatitis (NASH); K59.04 Chronic idiopathic constipation; D12.6 Benign neoplasm of colon, unspecified
CPT/HCPCS: 36415; 80053; 82105; 83036; 99202

== ENCOUNTER 2021-03-28 12:14 | Outpatient (REF) | payer OTHER, SELFPAY ==
[2021-03-28 15:11] LABS: Cholesterol 211 mg/dL; HDL Cholesterol 62 mg/dL; LDL Cholesterol Calculated 112 mg/dl; Triglycerides 188 mg/dL
== END 2021-03-28 12:15 | disposition home or self-care (01) ==
LOC: HO.LAB 12:14
PROVIDERS: PCP Nurse Practitioner Primary Care; Visit Provider Internal Medicine Endocrinology, Diabetes & Metabolism
DX: E03.9 Hypothyroidism, unspecified (principal); E04.2 Nontoxic multinodular goiter; E11.65 Type 2 diabetes mellitus with hyperglycemia
CPT/HCPCS: 36415; 80061; 82947; 99212

== ENCOUNTER 2021-03-29 14:20 | Outpatient (REF) | payer OTHER, SELFPAY ==
--- NOTE | ~2021-03-29 | XR_ITS ---
EXAMINATION: XR CHEST CLINICAL INFORMATION: Chest pain COMPARISON: Previous chest x-rays most recent 03/01/2021 and chest CTA September 2020 TECHNIQUE: 2 views of the chest were obtained. FINDINGS: The heart does not appear enlarged. The thoracic aorta is tortuous. There may be ectasia of the ascending thoracic aorta.. Hilar and mediastinal contours are unremarkable. Chronic scarring or subsegmental atelectasis at the left lung base similar to previous exams The lungs are otherwise clear. There is no pleural effusion or pneumothorax. Bony structures are unremarkable. XR/XR chest 2V IMPRESSION: No evidence for acute disease in the chest. Chronic scarring or linear subsegmental atelectasis at the left lung base. Tortuous and slightly ectatic thoracic aorta.
[2021-03-29 15:27] LABS: MANUAL DIFF FLAG NO
[2021-03-29 16:08] LABS: Basophils Percent Auto 0.5 % (0-2); Eosinophils Absolute Auto 0.2 X10*3/uL (0.0-0.4); Eosinophils Percent Auto 3.1 % (0-4); Hematocrit 42.3 % (37.0-47.0); Hemoglobin 13.9 g/dl (12.0-16.0); Imm Gran Abs Auto 0.02 X10*3/uL (0.00-0.03); Imm Gran Pct Auto 0.3 % (0.0-0.4); Lymphocytes Absolute Auto 2.7 X10*3/uL (1.2-4.9); Lymphocytes Percent Auto 44.9 % (20-40); Mean Corpuscular HGB Conc 32.9 g/dl (31.0-35.0); Mean Corpuscular Hemoglobin 31.1 pg (27.0-33.0); Mean Corpuscular Volume 94.6 fL (80.0-98.0); Mean Platelet Volume 9.8 fL (9.4-12.3); Monocytes Absolute Auto 0.4 X10*3/uL (0.1-1.2); Monocytes Percent Auto 6.6 % (2-11); Neutrophils Absolute Auto 2.7 x10*3/uL (2.0-8.3); Neutrophils Percent Auto 44.6 % (45-73); Platelet Count 299 X10*3/uL (160-400); Red Blood Count 4.47 X10*6/uL (4.20-5.50); Red Cell Distribution Width 13.5 % (11.0-16.0); White Blood Count 6.1 X10*3/uL (4.8-10.8)
[2021-03-29 16:35] LABS: Anion Gap 10 (12-20); Blood Urea Nitrogen 13 mg/dL (9-16); Calcium 9.8 mg/dL (8.4-10.2); Carbon Dioxide 30 mmol/L (22-29); Chloride 106 mmol/L (96-108); Estimated Glomerular Filt Rate 59; Glucose Random 129 mg/dL (60-115); Potassium 4.3 mmol/L (3.3-5.1); Sodium 142 mmol/L (135-145)
[2021-03-29 16:54] LABS: D Dimer High Sensitivity < 150 NG/ML
[2021-03-29 17:19] LABS: Erythrocyte Sedimentation Rate 12 MM/HR (0-20)
== END 2021-03-29 14:21 | disposition home or self-care (01) ==
LOC: HO.XRAY 14:20
PROVIDERS: PCP Nurse Practitioner Primary Care; Visit Provider Hospitalist
DX: R07.9 Chest pain, unspecified (principal); J45.50 Severe persistent asthma, uncomplicated; J44.0 Chronic obstructive pulmonary disease with (acute) lower respiratory infection; E78.00 Pure hypercholesterolemia, unspecified
CPT/HCPCS: 36415; 71046; 80048; 85025; 85379; 85652; 99212

== ENCOUNTER 2021-03-30 10:01 | Outpatient (REF) | payer OTHER, SELFPAY | END 2021-03-30 10:02 | disposition home or self-care (01) | LOC: HO.MDS 10:01 | PROVIDERS: PCP Nurse Practitioner Primary Care; Visit Provider Internal Medicine Pulmonary Disease | DX: J45.50 Severe persistent asthma, uncomplicated (principal) | CPT/HCPCS: 96372; J2357 ==

== ENCOUNTER → 2021-04-02 15:43 | Outpatient (BNVA) | payer OTHER, SELFPAY | PROVIDERS: PCP Nurse Practitioner Primary Care; Referring Provider Nurse Practitioner Primary Care; Visit Provider Nurse Practitioner | DX: K75.81 Nonalcoholic steatohepatitis (NASH) (principal); K59.04 Chronic idiopathic constipation; K21.9 Gastro-esophageal reflux disease without esophagitis | CPT/HCPCS: 99212 ==

== ENCOUNTER → 2021-04-10 09:14 | Outpatient (BNVA) | payer OTHER, SELFPAY | PROVIDERS: PCP Nurse Practitioner Primary Care; Visit Provider Registered Nurse Diabetes Educator | DX: E11.65 Type 2 diabetes mellitus with hyperglycemia (principal) | CPT/HCPCS: 99211 ==

== ENCOUNTER 2021-04-12 11:05 | Outpatient (REF) | payer OTHER, SELFPAY | END 2021-04-12 11:06 | disposition home or self-care (01) | LOC: HO.MDS 11:05 | PROVIDERS: Visit Provider Internal Medicine Pulmonary Disease | DX: J45.50 Severe persistent asthma, uncomplicated (principal) | CPT/HCPCS: 96372; J2357 ==

== ENCOUNTER 2021-04-15 11:40 | Emergency (ER) | payer OTHER, SELFPAY ==
--- NOTE | ~2021-04-15 | CT_ITS ---
EXAMINATION: CT ABDOMEN AND PELVIS WITH CONTRAST CLINICAL INFORMATION: Right upper quadrant and right lower quadrant tenderness to touch. Nausea and vomiting. COMPARISON: None TECHNIQUE: Multidetector volumetric images were obtained from the superior aspect of the liver through the pubic symphysis following administration 85 mL of Omnipaque 350 intravenous contrast. Sagittal and coronal reformatted images were obtained on the technologist's workstation. Oral contrast: No This CT examination was performed using dose optimization techniques as appropriate, variously including the following: *Automated exposure control *Adjustment of mA and/or kV according to patient size (this includes techniques or standardized protocols for targeted exams where dose is matched to indication/reason for exam; i.e. extremities or head) *Use of iterative reconstruction technique DLP: 759 mGy-cm FINDINGS: LUNG BASES: There is minimal dependent by basilar atelectasis. Heart size is normal. LIVER, GALLBLADDER, AND BILIARY TREE: The liver is normal in size, shape, and attenuation. No focal hepatic lesion or biliary ductal dilatation is present. The gallbladder is unremarkable with no evidence of radiopaque gallstones, gallbladder wall thickening, or obvious pericholecystic inflammatory changes. PANCREAS: Unremarkable. SPLEEN: Unremarkable. ADRENAL GLANDS: Unremarkable. KIDNEYS AND URETERS: The kidneys are normal in size, shape, and attenuation. No hydronephrosis, hydroureter, or calculi seen. No perinephric stranding. There is a 2 cm exophytic cyst upper pole left kidney. BLADDER: Unremarkable. GASTROINTESTINAL TRACT: There is moderate scattered stool and diverticuli seen in the colon without any significant distention. The small bowel loops are normal caliber. Appendix is normal caliber. No fat stranding, free fluid or free air seen. ABDOMINAL WALL: There is a small and umbilical hernia measuring 17 cm in length, 4.2 cm in thickness and approximately and 10.2 cm in AP dimension. LYMPH NODES: Normal. VASCULAR: There is atherosclerotic calcification of abdominal aorta with mild aneurysmal dilatation of distal abdominal aorta measuring 2.8 cm in AP and the 2.9 cm wide. The common iliac artery and the bifurcation is normal.. PELVIC VISCERA: The uterus is surgically removed. No adnexal mass or free fluid seen. OSSEOUS STRUCTURES: Unremarkable. CT/CT abdomen pelvis w con IMPRESSION: Moderate constipation with colonic diverticulosis without diverticulitis. Moderate size right abdominal wall lipoma. Normal appendix. Partially exophytic cyst upper pole left kidney Fleischner guidelines were followed.
--- NOTE | 2021-04-15 11:44 | PC.NURSE ---
called spanish medical interpreter - triage pending.
[2021-04-15 11:52] VITALS: PULSE 90; RESP 18; TEMP 36.9; O2SAT 94; BMI 35.0
[2021-04-15 12:19] LABS: COVID-19 Test Negative (Negative)
--- NOTE | 2021-04-15 12:27 | ECG_ITS ---
Test Reason : abdominal pain Blood Pressure : / mmHG Vent. Rate : 076 BPM Atrial Rate : 076 BPM P-R Int : 230 ms QRS Dur : 106 ms QT Int : 402 ms P-R-T Axes : 048 -40 015 degrees QTc Int : 452 ms Sinus rhythm with 1st degree A-V block Left axis deviation Minimal voltage criteria for LVH, may be normal variant ( Bala product ) Abnormal ECG When compared with ECG of 25-DEC-2020 09:17, No significant change was found Referred By: Maritza Mckeon Electronically Signed By:Agus Denise
--- NOTE | 2021-04-15 12:44 | ED.ABDPAIN ---
HPI - Abdominal Pain General Chief Complaint: Abdominal Pain Stated Complaint: Liver pain Time Seen by Provider: 04/15/21 12:24 Source: patient Mode of arrival: ambulatory History of Present Illness HPI narrative: 60-year-old female with a past medical history of COPD, diabetes, DVT, vertigo, substance abuse, hypothyroid, menometrorrhagia, presenting to the ED complaining of RUQ abdominal pain x3 days with associated nausea, vomiting, and chills. Admits to similar symptoms in the past. Also reports room spinning dizziness worse with position changes/head movement similar to prior vertigo episodes. Denies headache, CP/SOB, diarrhea/constipation, dysuria/hematuria, weakness MD elicited complaint: abdominal pain Pertinent past history: none Onset (ago): day(s) Related Data Home Medications Medication Instructions Recorded Confirmed alcohol swabs 1 pad TOPICAL DAILY 11/20/19 03/08/21 amlodipine 10 mg tablet 10 mg PO BEDTIME 11/20/19 03/29/21 blood sugar diagnostic #10 ea 11/20/19 03/08/21 blood-glucose meter #1 ea 11/20/19 03/08/21 buspirone 5 mg tablet 5 mg PO BID 11/20/19 03/29/21 calcium carbonate 600 mg-vitamin 1 tab PO BID 11/20/19 03/29/21 D3 10 mcg (400 unit) tablet cetirizine 10 mg tablet 10 mg PO BEDTIME 11/20/19 03/29/21 enalapril maleate 10 mg tablet 10 mg PO QAM 11/20/19 03/29/21 fluticasone propionate 220 1 puff PO BID 11/20/19 03/29/21 mcg/actuation HFA aerosol inhaler fluticasone propionate 50 1 spray INTRANASAL BID 11/20/19 03/29/21 mcg/actuation nasal spray,suspension glucose 4 gram chewable tablet 16 g PO 11/20/19 03/08/21 ipratropium 0.5 mg-albuterol 3 mg 3 ml INHALATION Q6H PRN 11/20/19 03/29/21 (2.5 mg base)/3 mL nebulization soln lancets 33 gauge #100 ea 11/20/19 03/08/21 potassium chloride 20 mEq 20 meq PO BID 11/20/19 03/29/21 tablet,extended release(part/cryst) risperidone 0.5 mg tablet 0.5 mg PO BID 11/20/19 03/29/21 zolpidem 10 mg tablet 10 mg PO BEDTIME PRN 11/20/19 03/29/21 clonazepam 1 mg tablet (Klonopin) 1 mg PO BEDTIME 03/08/20 03/08/21 montelukast 10 mg tablet 10 mg PO DAILY 03/08/20 03/29/21 tramadol 50 mg tablet 50 mg PO BID PRN 03/08/20 03/29/21 acetaminophen 325 mg tablet 650 mg PO QID tab 07/03/20 03/29/21 meclizine 25 mg tablet 25 mg PO DAILY PRN tab 07/10/20 03/29/21 Lactobacil rhamnosus GG 10 billion 1 cap PO DAILY 04/02/21 cell-inulin 200 mg sprinkle capsule ([facility] [facility]) prednisone 20 mg tablet 20 mg PO BID 04/02/21 Previous Rx's Medication Instructions Recorded leg brace (Knee Support Brace) #2 ea 03/08/20 levothyroxine 75 mcg tablet 75 mcg PO DAILY 90 Days #90 tab 07/10/20 dextrose 40 % oral gel (Dex4 10 g PO Q15M PRN 30 Days #37.5 g 08/24/20 Glucose) albuterol sulfate 90 mcg/actuation 2 puff INHALATION Q4-6H PRN #6.7 g 09/29/20 aerosol inhaler Lactobacillus rhamnosus GG 10 1 cap PO DAILY 30 Days #30 cap 11/17/20 billion cell capsule (SpeechTranslle) tiotropium bromide 18 mcg capsule 1 cap INHALATION DAILY 30 Days #30 01/18/21 with inhalation device (Spiriva inh with HandiHaler) phenazopyridine 100 mg tablet 100 mg PO TID #6 tab 01/22/21 (Pyridium) terconazole 0.8 % vaginal cream 1 appful VAGINAL BEDTIME 3 Days 01/30/21 #20 g gabapentin 400 mg capsule 400 mg PO BID #60 cap 02/06/21 omalizumab 150 mg/mL subcutaneous 300 mg (2 mL) SUBCUT Q2W #2 ml 02/19/21 syringe hydrocortisone 2.5 % topical cream 1 appl [place] BID PRN #30 g 02/26/21 with perineal applicator (Proctozone-HC) bisacodyl 5 mg tablet,delayed 10 mg PO BEDTIME 2 Days #4 tab 03/19/21 release (Dulcolax (bisacodyl)) docusate sodium 100 mg capsule 100 mg PO BID 30 Days #60 cap 03/19/21 magnesium citrate 150 ml PO DAILY #300 ml 03/19/21 metoclopramide HCl 5 mg tablet 5 mg PO QIDACHS 30 Days #120 tab 03/19/21 (Reglan) omeprazole 20 mg capsule,delayed 20 mg PO BID 60 Days #120 cap 03/19/21 release plecanatide 3 mg tablet (Trulance) 3 mg PO DAILY 30 Days #30 tab 03/19/21 sennosides 8.6 mg capsule (senna) 17.2 mg PO BEDTIME 30 Days #60 cap 03/19/21 atorvastatin 80 mg tablet 80 mg PO DAILY 30 Days #30 tab 03/29/21 doxycycline hyclate 100 mg capsule 100 mg PO BID 10 Days #20 cap 03/29/21 prednisone 10 mg tablet See Rx Instructions PO DAILY 10 03/29/21 Days #15 tab sodium,potassium,mag sulfates 17.5 See Rx Instructions PO .COMPLEX 04/04/21 gram-3.13 gram-1.6 gram oral soln #354 ml (Suprep Bowel Prep Kit) peg 3350-electrolytes 236 240 ml PO Q10M 1 Days #4000 ml 04/05/21 gram-22.74 gram-6.74 gram-5.86 gram solution (Golytely) aluminum-mag hydroxide-simethicone 5 ml PO 5XD PRN #30 ml 04/15/21 200 mg-200 mg-20 mg/5 mL oral susp (Maalox Advanced) famotidine 20 mg tablet (Pepcid) 20 mg PO DAILY #14 tab 04/15/21 meclizine 25 mg tablet 25 mg PO TID PRN #14 tab 04/15/21 Allergies Allergy/AdvReac Type Severity Reaction Status Date / Time aspirin [Aspirin] Allergy Mild ITCHY Verified 04/15/21 11:52 THROAT azithromycin Allergy Unknown Unknown Verified 04/15/21 11:52 naproxen Allergy Unknown Unknown Verified 04/15/21 11:52 simvastatin Allergy Unknown Unknown Verified 04/15/21 11:52 Fish Containing Products Allergy Swelling Verified 04/15/21 11:52 onion [ONION] AdvReac Mild RED FACE Verified 04/15/21 11:52 Review of Systems Review of Systems Constitutional: No Fever, + Chills, No Fatigue, No Malaise ENT/Mouth: No Ear Pain, No Nasal Congestion, No Sinus Pain, No sore throat, No Rhinorrhea, No Swallowing Difficulty Eyes: No Eye Pain, No Swelling, No Redness Cardiovascular: No Chest Pain, No SOB, No Dyspnea on Exertion, No Orthopnea, No Edema, No Palpitations Respiratory: No Cough, No Sputum, No Dyspnea Gastrointestinal: + Nausea, + Vomiting, No Diarrhea, No Constipation, + Abdominal pain Genitourinary: No Dysuria, No Urinary Frequency, No Hematuria, No Flank Pain, No Urinary Flow Changes Musculoskeletal: No joint pain, No Myalgias, No Joint Swelling Skin: No Skin Lesions, No rash Neuro: No Weakness, No Numbness, No Paresthesias, No Loss of Consciousness, + Dizziness, No Headache Yes all other systems are reviewed and are negative Denies Abnormal speech present [facility] Past Medical History Attestation statement: The following information was validated with the patient. Medical History Bronchitis Chest pain Cocaine abuse COPD exacerbation Diabetes DVT (deep venous thrombosis) Hypothyroidism Low vitamin D level Menometrorrhagia Non-toxic multinodular goiter Spondylosis of cervical region without myelopathy or radiculopathy Vertigo Surgical History H/O colonoscopy with polypectomy History of esophagogastroduodenoscopy (EGD) History of hysterectomy History of lithotripsy History of selective injection of anesthetic agent around lumbar nerve root Hx of right breast biopsy Family History Family History Father No problems noted. Mother Myocardial infarction CVA (cerebral vascular accident) Social History Social History Household Members: None Alcohol intake: never Patient Tobacco Use Status: Never used Tobacco Use of substances other than those prescribed or required for medical reasons: No Advance Directives: No Advance Directives Information Provided: No Patient : No Current occupational status: disabled Physical Exam ED Vital Signs: Vital Signs - 24 hr 04/15/21 11:52 04/15/21 13:03 04/15/21 13:18 Temperature 98.4 F Pulse Rate 90 74 80 Respiratory Rate 18 16 Blood Pressure 133/87 122/82 Pulse Oximetry 94 96 04/15/21 13:19 Temperature Pulse Rate 76 Respiratory Rate Blood Pressure 131/85 Pulse Oximetry BMI result Body Mass Index 35.0 Const General: cooperative, healthy appearing and no acute distress Orientation/consciousness: patient oriented x3 Limitations: no limitations HENIL Head: Yes normal to inspection Ears: hearing grossly normal bilaterally General nose exam: Normal external nose present Face and sinus: Yes normal facial exam Eyes General: appearance normal, both eyes and all related structures EOM: EOMs intact bilaterally Neck Neck: Yes normal visual inspection and Yes no meningeal signs Resp Effort & Inspection: normal respiratory effort and no respiratory distress Auscultation: clear to auscultation bilaterally Cardio Rate: regular rate Heart sounds: S1 normal heart sound present and S2 normal heart sound present GI Inspection: Yes normal to inspection Palpation (GI): Soft to palpation, Tenderness to palpation present (GI) in the epigastrum, in the RLQ and in the RUQ, no guarding and not rigid General: Yes no CVA tenderness Back/Spine/Pelvis Back: no CVA tenderness Skin Rashes: no rashes Wounds: no wounds Neuro General: patient oriented x3, gait normal, tone normal, moves all extremities, no meningeal signs, no focal motor deficits and CN's II-XI intact bilaterally Cranial nerves: Yes CN's II-XII intact bilaterally, Yes Bilaterally intact EOM present and Yes Nystagmus not present Cognition (Neuro): normal cognition Speech: No Abnormal speech present Gait exam (Neuro): Normal gait present Motor exam (neuro): 5/5 motor strength present throughout, Pronator motor function not present and no tremor noted Coordination: [id number] test normal Romberg Test: Negative Extrem General: Yes normal to inspection, Yes no pedal edema and Yes no calf tenderness Course Course Course Narrative: -1327--no leukocytosis. Labs otherwise unremarkable -UA negative -1451--CT abdomen pelvis w con IMPRESSION: Moderate constipation with colonic diverticulosis without diverticulitis. ? Moderate size right abdominal wall lipoma. ? Normal appendix. ? Partially exophytic cyst upper pole left kidney ? Fleischner guidelines were followed. >> results discussed with patient with dictaphone operator. Patient requesting food> Tolerating p.o. without difficulty. Reports pain improvement/resolution. Discussed worrisome signs and symptoms and strict return precautions & needed close follow-up with PCP and GI. Patient verbalized understanding feel safe for discharge home at this time. Denies dizziness at present. Orthostatic vital signs were negative MDM - Abdominal Pain MDM Narrative Medical decision making narrative: 60-year-old female with a past medical history of COPD, diabetes, DVT, vertigo, substance abuse, hypothyroid, menometrorrhagia, presenting to the ED complaining of RUQ abdominal pain x3 days with associated nausea, vomiting, and chills. Also reports room spinning dizziness worse with position changes/head movement similar to prior vertigo episodes. On exam vital signs stable, NAD/nontoxic abdomen soft with RUQ/epigastric and RLQ tenderness to palpation, no rebound or guarding. No focal neuro deficits. Concern for cholelithiasis/cystitis vs pancreatitis vs appendicitis vs GERD/PUD/gastritis. Concern for BPPV/vertigo. Lower concern for SAH the central causes of vertigo or meningitis/encephalitis Plan: EKG, labs, UA, CT abdomen/pelvis, IVF, orthostatic some symptomatic remedies, re-evaluate Differential Diagnosis Differential diagnosis: Likely abdominal pain, gastroenteritis, gastritis, pancreatitis and peptic ulcer disease Medical Records Attestation: I reviewed the patient's medical records. Lab Data Attestation: I reviewed the patient's lab results. Result diagrams: 04/15/21 12:55 04/15/21 12:55 Labs: Lab Results 04/15/21 04/15/21 04/15/21 Range/Units 11:58 12:55 12:55 WBC 6.2 (4.8-10.8) X10*3/uL RBC 4.42 (4.20-5.50) X10*6/uL Hgb 14.0 (12.0-16.0) g/dl Hct 40.8 (37.0-47.0) % MCV 92.3 (80.0-98.0) fL MCH 31.7 (27.0-33.0) pg MCHC 34.3 (31.0-35.0) g/dl RDW 13.4 (11.0-16.0) % Plt Count 272 (160-400) X10*3/uL MPV 9.5 (9.4-12.3) fL Immature Gran % (Auto) 0.2 (0.0-0.4) % Neut % (Auto) 49.9 (45-73) % Lymph % (Auto) 37.8 (20-40) % [place] % (Auto) 8.2 (2-11) % Eos % (Auto) 3.4 (0-4) % Baso % (Auto) 0.5 (0-2) % Lymph # (Auto) 2.3 (1.2-4.9) X10*3/uL [place] # (Auto) 0.5 (0.1-1.2) X10*3/uL Eos # (Auto) 0.2 (0.0-0.4) X10*3/uL Baso # (Auto) 0.0 (0.0-0.2) X10*3/uL Abs Immat Gran (auto) 0.01 (0.00-0.03) X10*3/uL Absolute Neuts (auto) 3.1 (2.0-8.3) x10*3/uL Absolute Nucleated RBC 0.000 (0.0-0.012) X10*3/uL Nucleated RBC % (auto) 0.0 (0.0-0.2) /100WBC Sodium 144 (135-145) mmol/L Potassium 3.7 (3.3-5.1) mmol/L Chloride 111 H (96-108) mmol/L Carbon Dioxide 25 (22-29) mmol/L Anion Gap 12 (12-20) BUN 15 (9-16) mg/dL Creatinine 0.86 (0.5-1.4) mg/dL Estim Creat Clear Calc 77.3 Estimated GFR > 60 POC Glucose (60-115) mg/dL Random Glucose 114 (60-115) mg/dL Calcium 9.9 (8.4-10.2) mg/dL Magnesium 2.1 (1.6-2.6) mg/dL Total Bilirubin 0.5 (0.0-1.0) mg/dL Direct Bilirubin < 0.2 (0.0-0.5) mg/dL AST 20 (5-31) U/L ALT 16 (0-31) U/L Alkaline Phosphatase 86 (39-117) U/L Total Protein 6.9 (6.5-8.0) g/dL Albumin 4.1 (3.5-5.0) g/dL Lipase 30 (8-78) U/L Urine Color Urine Appearance Urine pH (5.0-8.0) Ur Specific [place] (1.005-1.025) Urine Protein (NEG-TRACE) MG/DL Urine Glucose (UA) (NEG) MG/DL Urine Ketones (NEG) MG/DL Urine Blood (NEG) Urine Nitrite (NEG) Ur Leukocyte Esterase (NEG) COVID-19 (DONALD) Negative (Negative) COVID-19 Clin Com See Note 04/15/21 04/15/21 Range/Units 13:25 14:45 WBC (4.8-10.8) X10*3/uL RBC (4.20-5.50) X10*6/uL Hgb (12.0-16.0) g/dl Hct (37.0-47.0) % MCV (80.0-98.0) fL MCH (27.0-33.0) pg MCHC (31.0-35.0) g/dl RDW (11.0-16.0) % Plt Count (160-400) X10*3/uL MPV (9.4-12.3) fL Immature Gran % (Auto) (0.0-0.4) % Neut % (Auto) (45-73) % Lymph % (Auto) (20-40) % [place] % (Auto) (2-11) % Eos % (Auto) (0-4) % Baso % (Auto) (0-2) % Lymph # (Auto) (1.2-4.9) X10*3/uL [place] # (Auto) (0.1-1.2) X10*3/uL Eos # (Auto) (0.0-0.4) X10*3/uL Baso # (Auto) (0.0-0.2) X10*3/uL Abs Immat Gran (auto) (0.00-0.03) X10*3/uL Absolute Neuts (auto) (2.0-8.3) x10*3/uL Absolute Nucleated RBC (0.0-0.012) X10*3/uL Nucleated RBC % (auto) (0.0-0.2) /100WBC Sodium (135-145) mmol/L Potassium (3.3-5.1) mmol/L Chloride (96-108) mmol/L Carbon Dioxide (22-29) mmol/L Anion Gap (12-20) BUN (9-16) mg/dL Creatinine (0.5-1.4) mg/dL Estim Creat Clear Calc Estimated GFR POC Glucose 94 (60-115) mg/dL Random Glucose (60-115) mg/dL Calcium (8.4-10.2) mg/dL Magnesium (1.6-2.6) mg/dL Total Bilirubin (0.0-1.0) mg/dL Direct Bilirubin (0.0-0.5) mg/dL AST (5-31) U/L ALT (0-31) U/L Alkaline Phosphatase (39-117) U/L Total Protein (6.5-8.0) g/dL Albumin (3.5-5.0) g/dL Lipase (8-78) U/L Urine Color YELLOW Urine Appearance CLEAR Urine pH 6.5 (5.0-8.0) Ur Specific [place] 1.010 (1.005-1.025) Urine Protein NEG (NEG-TRACE) MG/DL Urine Glucose (UA) NEG (NEG) MG/DL Urine Ketones NEG (NEG) MG/DL Urine Blood NEG (NEG) Urine Nitrite NEG (NEG) Ur Leukocyte Esterase NEG (NEG) COVID-19 (DONALD) (Negative) COVID-19 Clin Com ECG Data Attestation: I personally reviewed and interpreted this ECG as follows: ECG interpretation date: 04/15/21 ECG interpretation time: 12:39 Interpretation: EKG sinus rhythm first-degree AV block at a rate of 76. . Tooth 30. QRS 106. Inverted T-wave in lead 3. No STEMI. Nonischemic. Discharge Plan Discharge Clinical Impression: Abdominal pain, Dizziness Patient Disposition: Home, Self-Care Instructions: Vertigo (DC), Abdominal Pain (ED) Additional Instructions: Your blood work was reassuring today in the ED. Her CT showed moderate constipation, and a cyst in her left kidney, otherwise unremarkable. Meclizine will help with dizziness. Pepcid and Maalox will help with acid reduction. Please avoid spicy foods, caffeine, chocolate, eating right before bed as well exacerbate her abdominal pain Please follow-up with Gastroenterology and her primary care doctor If her symptoms persist or worsen, pain becomes unbearable, your unable to eat or drink, constant worsening dizziness, headache, or developed chest pain or shortness of breath please return to the ED Booth an?lisis de rocky fue tranquilizador hoy en el servicio de urgencias. Booth TC mostr? estre?imiento moderado y un quiste en el ri??n loki, por lo dem?s sin complicaciones. La meclizina ayudar? con los mareos. Pepcid y Maalox ayudar?n con la reducci?n de ?cido. Evite las comidas picantes, la cafe?na, el chocolate, comer laura antes de acostarse y exacerbar booth dolor abdominal. Por favor, jessica un seguimiento con Gastroenterolog?a y booth m?dico de atenci?n primaria. Si norah s?ntomas persisten o empeoran, el dolor se vuelve insoportable, no puede comer ni beber, mareos que empeoran constantemente, dolor de ricco o dolor en el pecho o dificultad para respirar, regrese al servicio de urgencias. Prescriptions: New famotidine [Pepcid] 20 mg tablet 20 mg PO DAILY Qty: 14 0RF alum-mag hydroxide-simeth [Maalox Advanced] 200-200-20 mg/5 mL suspension 5 ml PO 5XD PRN (Reason: dyspepsia) Qty: 30 0RF Rx Instructions: administer between meals and at bedtime meclizine 25 mg tablet 25 mg PO TID PRN (Reason: dizziness) Qty: 14 0RF No Action dextrose [Dex4 Glucose] 40 % gel 10 g PO Q15M PRN (Reason: hypoglycemia) 30 Days Qty: 37.5 5RF Rx Instructions: until symptoms of low blood sugar are controlled Culturelle 10 billion cell capsule 1 cap PO DAILY 30 Days Qty: 30 6RF gabapentin 400 mg capsule 400 mg PO BID Qty: 60 5RF omalizumab 150 mg/mL syringe 300 mg subcut Q2W Qty: 2 12RF hydrocortisone [Proctozone-HC] 2.5 % cream with perineal applicator 1 appl [place] BID PRN (Reason: hemorrhoids) Qty: 30 6RF atorvastatin 80 mg tablet 80 mg PO DAILY 30 Days Qty: 30 4RF Suprep Bowel Prep Kit 17.5-3.13-1.6 gram recon soln See Rx Instructions PO .COMPLEX Qty: 354 0RF Rx Instructions: DILUTE; drink full amount early evening before AND next morning at least 2 hr before procedure; follow w 32 oz. water PO peg 3350-electrolytes [Golytely] 236-22.74-6.74 -5.86 gram recon soln 240 ml PO Q10M 1 Days Qty: 4000 0RF Rx Instructions: until fecal effluent is clear; do not exceed a total volume of 2,000 mL albuterol sulfate 90 mcg/actuation HFA aerosol inhaler 2 puff inhalation Q4-6H PRN (Reason: shortness of breath or wheezing) Qty: 6.7 0RF phenazopyridine [Pyridium] 100 mg tablet 100 mg PO TID Qty: 6 0RF tramadol 50 mg tablet 50 mg PO BID PRN (Reason: Pain) 0RF montelukast 10 mg tablet 10 mg PO DAILY 0RF clonazepam [Klonopin] 1 mg tablet 1 mg PO BEDTIME 0RF Rx Instructions: administer 30 minutes before bedtime (DME) Knee Support Brace Misc See Rx Instructions .ROUTE .MEDSUPPLY Qty: 2 0RF Rx Instructions: As directed levothyroxine 75 mcg tablet 75 mcg PO DAILY 90 Days Qty: 90 2RF bisacodyl [Dulcolax (bisacodyl)] 5 mg tablet,delayed release (DR/EC) 10 mg PO BEDTIME 2 Days Qty: 4 0RF magnesium citrate Solution 150 ml PO DAILY Qty: 300 0RF docusate sodium 100 mg capsule 100 mg PO BID 30 Days Qty: 60 5RF omeprazole 20 mg capsule,delayed release(DR/EC) 20 mg PO BID 60 Days Qty: 120 6RF Trulance 3 mg tablet 3 mg PO DAILY 30 Days Qty: 30 6RF Rx Instructions: Take one tablet by mouth once a day senna 8.6 mg capsule 17.2 mg PO BEDTIME 30 Days Qty: 60 6RF metoclopramide HCl [Reglan] 5 mg tablet 5 mg PO QIDACHS 30 Days Qty: 120 6RF Rx Instructions: Provider aware of possible interaction and pt is being monitored glucose 4 gram tablet,chewable 16 g PO 0RF ipratropium-albuterol 0.5 mg-3 mg(2.5 mg base)/3 mL solution for nebulization 3 ml inhalation Q6H PRN (Reason: Shortness Of Breath) 0RF alcohol swabs Pads, Medicated 1 pad topical DAILY 0RF zolpidem 10 mg tablet 10 mg PO BEDTIME PRN (Reason: Insomnia) 0RF buspirone 5 mg tablet 5 mg PO BID 0RF fluticasone propionate 50 mcg/actuation spray,suspension 1 spray intranasal BID 0RF risperidone 0.5 mg tablet 0.5 mg PO BID 0RF amlodipine 10 mg tablet 10 mg PO BEDTIME 0RF enalapril maleate 10 mg tablet 10 mg PO QAM 0RF (DME) lancets 33 gauge misc See Rx Instructions ea Not Applicable DAILY Qty: 100 0RF Rx Instructions: As directed Flovent HFA 220 mcg/actuation HFA aerosol inhaler 1 puff PO BID 0RF (DME) FreeStyle Lite Strips Strip See Rx Instructions ea Not Applicable DAILY Qty: 10 0RF Rx Instructions: As directed calcium carbonate-vitamin D3 600 mg(1,500mg) -400 unit tablet 1 tab PO BID 0RF potassium chloride 20 mEq tablet,ER particles/crystals 20 meq PO BID 0RF cetirizine 10 mg tablet 10 mg PO BEDTIME 0RF (DME) blood-glucose meter Kit See Rx Instructions ea .ROUTE DAILY Qty: 1 0RF Rx Instructions: As directed acetaminophen 325 mg tablet 650 mg PO QID 0RF meclizine 25 mg tablet 25 mg PO DAILY PRN (Reason: dizziness) 0RF prednisone 20 mg tablet 20 mg PO BID 0RF Culturelle [facility] 10 billion cell -200 mg capsule, sprinkle 1 cap PO DAILY 0RF doxycycline hyclate 100 mg capsule 100 mg PO BID 10 Days Qty: 20 0RF prednisone 10 mg tablet See Rx Instructions PO DAILY 10 Days Qty: 15 0RF Rx Instructions: 2 tablets x 5 day, then 1 tab daily x 5 days Spiriva with HandiHaler 18 mcg capsule, w/inhalation device 1 cap inhalation DAILY 30 Days Qty: 30 6RF Rx Instructions: puncture 1 cap using device; one dose = 2 inhalations terconazole 0.8 % cream 1 appful vaginal BEDTIME 3 Days Qty: 20 0RF Referrals: Miguel Bryant MD [Physician] - 3 days Sariah Vickers NP [Primary Care Provider] - 2 days Print Language: Setswana
[2021-04-15 13:00] LABS: Basophils Percent Auto 0.5 % (0-2); Eosinophils Absolute Auto 0.2 X10*3/uL (0.0-0.4); Eosinophils Percent Auto 3.4 % (0-4); Hematocrit 40.8 % (37.0-47.0); Imm Gran Abs Auto 0.01 X10*3/uL (0.00-0.03); Imm Gran Pct Auto 0.2 % (0.0-0.4); Lymphocytes Absolute Auto 2.3 X10*3/uL (1.2-4.9); Lymphocytes Percent Auto 37.8 % (20-40); MANUAL DIFF FLAG NO; Mean Corpuscular HGB Conc 34.3 g/dl (31.0-35.0); Mean Corpuscular Hemoglobin 31.7 pg (27.0-33.0); Mean Corpuscular Volume 92.3 fL (80.0-98.0); Mean Platelet Volume 9.5 fL (9.4-12.3); Monocytes Absolute Auto 0.5 X10*3/uL (0.1-1.2); Monocytes Percent Auto 8.2 % (2-11); Neutrophils Absolute Auto 3.1 x10*3/uL (2.0-8.3); Neutrophils Percent Auto 49.9 % (45-73); Platelet Count 272 X10*3/uL (160-400); Red Blood Count 4.42 X10*6/uL (4.20-5.50); Red Cell Distribution Width 13.4 % (11.0-16.0); White Blood Count 6.2 X10*3/uL (4.8-10.8)
[2021-04-15] MEDS: ondansetron HCL 4 MG/2 ML VIAL IVPUSH (13:01)
[2021-04-15] MEDS: Meclizine HCl 25 MG TABLET PO (13:01)
[2021-04-15] MEDS: Magnesium Hydrox/Alum Hydrox 30 ML ORAL.SUSP PO (13:01)
[2021-04-15] MEDS: 0.9 % Sodium Chloride 1,000 ML 999 ML IV (13:02)
[2021-04-15] MEDS: Famotidine/PF 20 MG/2 ML VIAL IVPUSH (13:02)
[2021-04-15 13:03] VITALS: BP 133/87; PULSE 74; RESP 16; O2SAT 96
[2021-04-15 13:17] LABS: Alanine Aminotransferase 16 U/L (0-31); Albumin Level 4.1 g/dL (3.5-5.0); Alkaline Phosphatase 86 U/L (39-117); Anion Gap 12 (12-20); Aspartate Amino Transferase 20 U/L (5-31); Bilirubin Direct < 0.2 mg/dL (0.0-0.5); Bilirubin Total 0.5 mg/dL (0.0-1.0); Blood Urea Nitrogen 15 mg/dL (9-16); Calcium 9.9 mg/dL (8.4-10.2); Carbon Dioxide 25 mmol/L (22-29); Chloride 111 mmol/L (96-108); Creatinine Clr Calc Pharmacy 77.3; Estimated Glomerular Filt Rate > 60; Glucose Random 114 mg/dL (60-115); Lipase 30 U/L (8-78); Magnesium 2.1 mg/dL (1.6-2.6); Potassium 3.7 mmol/L (3.3-5.1); Sodium 144 mmol/L (135-145); Total Protein 6.9 g/dL (6.5-8.0)
[2021-04-15 13:18] VITALS: BP 122/82; PULSE 80
[2021-04-15 13:19] VITALS: BP 125/84; BP 131/85; PULSE 75; PULSE 76
[2021-04-15 13:31] LABS: Appearance Urine CLEAR; Color Urine YELLOW; Glucose Urine UA NEG (NEG); Leukocyte Esterase Urine NEG (NEG); Nitrite Urine NEG (NEG); PH 6.5 (5.0-8.0); Urine Blood NEG (NEG); Urine Ketones NEG (NEG); Urine Protein NEG (NEG-TRACE)
[2021-04-15] MEDS: iohexoL 350 MG/ML 100 ML INFUS..BTL IV (13:50)
[2021-04-15 14:50] LABS: Glucose, Whole Blood 94 mg/dL (60-115)
== END 2021-04-15 15:15 | disposition home or self-care (01) ==
PROVIDERS: Physician Assistant; Emergency Provider Emergency Medicine Emergency Medical Services; PCP Nurse Practitioner Primary Care
DX: R10.11 Right upper quadrant pain (principal); R42 Dizziness and giddiness; J44.9 Chronic obstructive pulmonary disease, unspecified; E11.9 Type 2 diabetes mellitus without complications; Z20.822 Contact with and (suspected) exposure to COVID-19; Z79.4 Long term (current) use of insulin; Z79.899 Other long term (current) drug therapy
CPT/HCPCS: 36415; 74177; 80048; 80076; 81003; 82947; 83690; 83735; 85025; 87635; 93005; 96360; 96376; 99285; J2405; Q9967

== ENCOUNTER 2021-04-18 08:22 | Outpatient (REF) | payer OTHER, SELFPAY ==
--- NOTE | ~2021-04-18 | US_ITS ---
EXAMINATION: US ABDOMEN LIMITED CLINICAL INFORMATION: Nonalcoholic steatohepatitis. COMPARISON: CT abdomen and pelvis 04/15/2021. Ultrasound abdomen complete 06/06/2020. Ultrasound abdomen limited 02/21/2020. X-ray KUB 05/15/2017 and 04/21/2017. TECHNIQUE: Real-time imaging of the right upper quadrant abdominal viscera. FINDINGS: PANCREAS: The head and the body of the pancreas is homogeneous in echotexture. The tail of the pancreas is obscured by overlying gas. LIVER: Normal. The liver is normal in size. The liver contour is normal. Parenchymal echogenicity is normal. No focal hepatic lesion. There is no intrahepatic biliary duct dilatation seen. GALLBLADDER: Gallbladder wall measures 0.17 cm. The gallbladder is physiologically distended without evidence of stones, sludge, polyps, wall thickening or pericholecystic fluid. COMMON BILE DUCT: Normal in caliber measuring 0.7 cm in diameter. RIGHT KIDNEY: There is mild lobulation in the upper pole. No hydronephrosis. No renal calculi or focal parenchymal lesions. The kidney measures 11.2 cm in maximum dimension. FREE FLUID: None. US/US abdomen limited IMPRESSION: Unremarkable liver, gallbladder, CBD and right kidney. Visualized head and body of the pancreas is unremarkable.
== END 2021-04-18 08:23 | disposition home or self-care (01) ==
LOC: HO.US 08:22
PROVIDERS: Visit Provider Nurse Practitioner
DX: K75.81 Nonalcoholic steatohepatitis (NASH) (principal)
CPT/HCPCS: 76705

== ENCOUNTER → 2021-04-25 12:45 | Outpatient (BNVA) | payer OTHER, SELFPAY | PROVIDERS: PCP Nurse Practitioner Primary Care; Visit Provider Internal Medicine Pulmonary Disease | DX: Z01.811 Encounter for preprocedural respiratory examination (principal); J45.50 Severe persistent asthma, uncomplicated; Z91.09 Other allergy status, other than to drugs and biological substances | CPT/HCPCS: 99212 ==

== ENCOUNTER 2021-04-26 09:56 | Outpatient (REF) | payer OTHER, SELFPAY | END 2021-04-26 09:57 | disposition home or self-care (01) | LOC: HO.MDS 09:56 | PROVIDERS: Visit Provider Internal Medicine Pulmonary Disease | DX: J45.50 Severe persistent asthma, uncomplicated (principal) | CPT/HCPCS: 96372; J2357 ==

== ENCOUNTER 2021-05-01 07:46 | Day surgery (SDC) | payer OTHER, SELFPAY ==
[2021-03-29 15:16] VITALS: BMI 37.5
--- NOTE | 2021-04-04 10:14 | P.CONAN_ITS ---
HPI - Anesthesia Eval Consult details Narrative: 60yo F for Colonoscopy 03/30/21 Sick visit with pulmo - rx for abx and prednisone. Last dose 04/05/21. Covid negative 04/03/21. Pt states feeling better, at baseline. Hx cocaine abuse - ? last used. Tox screen DOS. PMFSH Active Problems Active Problems: All Active Problems (Updated 04/01/21 @ 20:49 by Pedrito Wallace MD) Asthma (Acute) Chest pain (Acute) Hypertension (Acute) High cholesterol (Acute) NIDDY (non-insulin dependent diabetes mellitus in young) (Acute) COPD (chronic obstructive pulmonary disease) (Acute) Smoker (Acute) PTSD (post-traumatic stress disorder) (Acute) Depression with anxiety (Acute) Fibromyalgia (Acute) Cervical spondylosis (Acute) Plantar fasciitis (Acute) CTS (carpal tunnel syndrome) (Acute) Allergic rhinitis (Acute) Menopausal state (Acute) Nephrolithiasis (Acute) OKEEFE (nonalcoholic steatohepatitis) (Acute) Chronic idiopathic constipation (Acute) GERD (gastroesophageal reflux disease) (Acute) Ectatic aorta (Acute) Type 2 diabetes mellitus with hyperglycemia (Acute) Severe persistent asthma (Acute) Environmental allergies (Acute) Dry mouth (Acute) Bilateral knee pain (Acute) Bilateral hand pain (Acute) Well woman exam with routine gynecological exam (Acute) Papanicolaou smear for cervical cancer screening (Acute) Yeast infection (Acute) Hemorrhoids (Acute) Osteoarthritis of knees, bilateral (Acute) Spondylosis of lumbar region without myelopathy or radiculopathy (Acute) Candidiasis of mouth and esophagus (Acute) Varicose veins of left lower extremity with inflammation (Acute) Acute asthma exacerbation (Acute) Vulvovaginitis (Acute) Tubular adenoma of colon (Acute) Bronchitis (Acute) Bronchitis (Acute) COPD exacerbation (Acute) Non-toxic multinodular goiter (Acute) Hypothyroidism (Acute) Past Medical History Medical History (Updated 04/01/21 @ 20:49 by Pedrito Wallace MD) Bronchitis Chest pain Cocaine abuse COPD exacerbation DVT (deep venous thrombosis) Hypothyroidism Low vitamin D level Menometrorrhagia Non-toxic multinodular goiter Spondylosis of cervical region without myelopathy or radiculopathy Family History Family History Father No problems noted. Mother Myocardial infarction CVA (cerebral vascular accident) Surgical History Surgical History H/O colonoscopy with polypectomy History of esophagogastroduodenoscopy (EGD) History of hysterectomy History of lithotripsy History of selective injection of anesthetic agent around lumbar nerve root Hx of right breast biopsy Social History Social History Household Members: None Alcohol intake: never Patient Tobacco Use Status: Never used Tobacco Current occupational status: disabled Meds Allergies Allergy/AdvReac Type Severity Reaction Status Date / Time aspirin [Aspirin] Allergy Mild ITCHY Verified 04/02/21 15:52 THROAT azithromycin Allergy Unknown Unknown Verified 04/02/21 15:52 naproxen Allergy Unknown Unknown Verified 04/02/21 15:52 simvastatin Allergy Unknown Unknown Verified 04/02/21 15:52 Fish Containing Products Allergy Swelling Verified 04/02/21 15:52 onion [ONION] AdvReac Mild RED FACE Verified 04/02/21 15:52 Home Medications Medication Instructions Recorded Confirmed Last Taken Type alcohol swabs 1 pad TOPICAL DAILY 11/20/19 03/08/21 Unknown History amlodipine 10 mg tablet 10 mg PO BEDTIME 11/20/19 03/29/21 Unknown History blood sugar diagnostic #10 ea 11/20/19 03/08/21 Unknown History blood-glucose meter #1 ea 11/20/19 03/08/21 Unknown History buspirone 5 mg tablet 5 mg PO BID 11/20/19 03/29/21 Unknown History calcium carbonate 600 mg-vitamin 1 tab PO BID 11/20/19 03/29/21 Unknown History D3 10 mcg (400 unit) tablet cetirizine 10 mg tablet 10 mg PO BEDTIME 11/20/19 03/29/21 Unknown History enalapril maleate 10 mg tablet 10 mg PO QAM 11/20/19 03/29/21 Unknown History fluticasone propionate 220 1 puff PO BID 11/20/19 03/29/21 Unknown History mcg/actuation HFA aerosol inhaler fluticasone propionate 50 1 spray INTRANASAL BID 11/20/19 03/29/21 Unknown History mcg/actuation nasal spray,suspension glucose 4 gram chewable tablet 16 g PO 11/20/19 03/08/21 Unknown History ipratropium 0.5 mg-albuterol 3 mg 3 ml INHALATION Q6H PRN 11/20/19 03/29/21 Unknown History (2.5 mg base)/3 mL nebulization soln lancets 33 gauge #100 ea 11/20/19 03/08/21 Unknown History potassium chloride 20 mEq 20 meq PO BID 11/20/19 03/29/21 Unknown History tablet,extended release(part/cryst) risperidone 0.5 mg tablet 0.5 mg PO BID 11/20/19 03/29/21 Unknown History zolpidem 10 mg tablet 10 mg PO BEDTIME PRN 11/20/19 03/29/21 Unknown History clonazepam 1 mg tablet (Klonopin) 1 mg PO BEDTIME 03/08/20 03/08/21 Unknown History montelukast 10 mg tablet 10 mg PO DAILY 03/08/20 03/29/21 Unknown History tramadol 50 mg tablet 50 mg PO BID PRN 03/08/20 03/29/21 Unknown History acetaminophen 325 mg tablet 650 mg PO QID tab 07/03/20 03/29/21 Unknown History meclizine 25 mg tablet 25 mg PO DAILY PRN tab 07/10/20 03/29/21 Unknown History Lactobacil rhamnosus GG 10 billion 1 cap PO DAILY 04/02/21 Unknown History cell-inulin 200 mg sprinkle capsule ([facility] V[facility]) prednisone 20 mg tablet 20 mg PO BID 04/02/21 Unknown History Exam Exam Date and Time: April 04, 2021 1014 Height,Weight and Vital Signs: Height 5 ft 2 in Weight 92.986 kg Pertinent Lab Results Pertinent Lab Results: Laboratory Tests 03/29/21 03/29/21 15:25 15:25 WBC 6.1 Hgb 13.9 Hct 42.3 Plt Count 299 Sodium 142 Potassium 4.3 Chloride 106 Carbon Dioxide 30 H BUN 13 Creatinine 0.96 Narrative Narrative: EKG 12/2020 Vent. Rate : 084 BPM ? ? Atrial Rate : 084 BPM ?? P-R Int : 214 ms? QRS Dur : 104 ms ? ? QT Int : 388 ms ? ? ? P-R-T Axes : 054 -51 046 degrees ?? QTc Int : 458 ms ? Sinus rhythm with 1st degree A-V block Left anterior fascicular block Abnormal ECG No significant changes seen Assessment and Plan Assessment Anesthesia Assessment: Chart Reviewed
--- NOTE | 2021-04-30 10:02 | HO.ANESPROP2 ---
Documented by User: Swapna Lockwood NP 04/30/21 10:05 HPI - Anesthesia Eval Consult details Narrative: 60yo F for Colonoscopy Cocaine use disorder - ? 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) (Acute) COPD (chronic obstructive pulmonary disease) (Acute) Smoker (Acute) PTSD (post-traumatic stress disorder) (Acute) Depression with anxiety (Acute) Fibromyalgia (Acute) Cervical spondylosis (Acute) Plantar fasciitis (Acute) CTS (carpal tunnel syndrome) (Acute) Allergic rhinitis (Acute) Menopausal state (Acute) Nephrolithiasis (Acute) [place]EEFE (nonalcoholic steatohepatitis) (Acute) Chronic idiopathic constipation (Acute) GERD (gastroesophageal reflux disease) (Acute) Ectatic aorta (Acute) Type 2 diabetes mellitus with hyperglycemia (Acute) Severe persistent asthma (Acute) Environmental allergies (Acute) Dry mouth (Acute) Bilateral knee pain (Acute) Bilateral hand pain (Acute) Well woman exam with routine gynecological exam (Acute) Papanicolaou smear for cervical cancer screening (Acute) Yeast infection (Acute) Hemorrhoids (Acute) Osteoarthritis of knees, bilateral (Acute) Spondylosis of lumbar region without myelopathy or radiculopathy (Acute) Bronchitis (Acute) Candidiasis of mouth and esophagus (Acute) Varicose veins of left lower extremity with inflammation (Acute) Acute asthma exacerbation (Acute) Vulvovaginitis (Acute) Tubular adenoma of colon (Acute) Asthma (Acute) Preop pulmonary/respiratory exam (Acute) Chest pain (Acute) Bronchitis (Acute) COPD exacerbation (Acute) Non-toxic multinodular goiter (Acute) Hypothyroidism (Acute) Past Medical History Medical History (Updated 04/25/21 @ 15:14 by Arina Loza, MARTIN) Allergic rhinitis Anxiety and depression Bronchitis Chest pain Cocaine abuse COPD exacerbation Diabetes DVT (deep venous thrombosis) Fibromyalgia HTN (hypertension) Hypothyroidism Low vitamin D level Menometrorrhagia Non-toxic multinodular goiter PTSD (post-traumatic stress disorder) Spondylosis of cervical region without myelopathy or radiculopathy Vertigo Family History Family History Father No problems noted. Mother Myocardial infarction CVA (cerebral vascular accident) Surgical History Surgical History H/O colonoscopy with polypectomy History of esophagogastroduodenoscopy (EGD) History of hysterectomy History of lithotripsy History of selective injection of anesthetic agent around lumbar nerve root Hx of right breast biopsy Social History Social History Household Members: None Alcohol intake: never Patient Tobacco Use Status: Never used Tobacco Current occupational status: disabled Meds Allergies Allergy/AdvReac Type Severity Reaction Status Date / Time aspirin [Aspirin] Allergy Mild ITCHY Verified 04/25/21 12:58 THROAT azithromycin Allergy Unknown Unknown Verified 04/25/21 12:58 naproxen Allergy Unknown Unknown Verified 04/25/21 12:58 simvastatin Allergy Unknown Unknown Verified 04/25/21 12:58 Fish Containing Products Allergy Swelling Verified 04/25/21 12:58 onion [ONION] AdvReac Mild RED FACE Verified 04/25/21 12:58 Home Medications Medication Instructions Recorded Confirmed Last Taken Type alcohol swabs 1 pad TOPICAL DAILY 11/20/19 03/08/21 Unknown History amlodipine 10 mg tablet 10 mg PO BEDTIME 11/20/19 03/29/21 Unknown History blood sugar diagnostic #10 ea 11/20/19 03/08/21 Unknown History blood-glucose meter #1 ea 11/20/19 03/08/21 Unknown History buspirone 5 mg tablet 5 mg PO BID 11/20/19 03/29/21 Unknown History calcium carbonate 600 mg-vitamin 1 tab PO BID 11/20/19 03/29/21 Unknown History D3 10 mcg (400 unit) tablet cetirizine 10 mg tablet 10 mg PO BEDTIME 11/20/19 03/29/21 Unknown History enalapril maleate 10 mg tablet 10 mg PO QAM 11/20/19 03/29/21 Unknown History fluticasone propionate 220 1 puff PO BID 11/20/19 03/29/21 Unknown History mcg/actuation HFA aerosol inhaler fluticasone propionate 50 1 spray INTRANASAL BID 11/20/19 03/29/21 Unknown History mcg/actuation nasal spray,suspension glucose 4 gram chewable tablet 16 g PO 11/20/19 03/08/21 Unknown History ipratropium 0.5 mg-albuterol 3 mg 3 ml INHALATION Q6H PRN 11/20/19 03/29/21 Unknown History (2.5 mg base)/3 mL nebulization soln lancets 33 gauge #100 ea 11/20/19 03/08/21 Unknown History potassium chloride 20 mEq 20 meq PO BID 11/20/19 03/29/21 Unknown History tablet,extended release(part/cryst) risperidone 0.5 mg tablet 0.5 mg PO BID 11/20/19 03/29/21 Unknown History zolpidem 10 mg tablet 10 mg PO BEDTIME PRN 11/20/19 03/29/21 Unknown History clonazepam 1 mg tablet (Klonopin) 1 mg PO BEDTIME 03/08/20 04/25/21 Unknown History montelukast 10 mg tablet 10 mg PO DAILY 03/08/20 03/29/21 Unknown History tramadol 50 mg tablet 50 mg PO BID PRN 03/08/20 03/29/21 Unknown History acetaminophen 325 mg tablet 650 mg PO QID tab 07/03/20 03/29/21 Unknown History Exam Exam Date and Time: April 30, 2021 1002 Height,Weight and Vital Signs: Height 5 ft 2 in Weight 92.986 kg Pertinent Lab Results Pertinent Lab Results: Laboratory Tests 04/15/21 04/15/21 12:55 12:55 WBC 6.2 Hgb 14.0 Hct 40.8 Plt Count 272 Sodium 144 Potassium 3.7 Chloride 111 H Carbon Dioxide 25 BUN 15 Creatinine 0.86 Narrative Narrative: EKG 03/2021 Vent. Rate : 076 BPM ? ? Atrial Rate : 076 BPM ?? P-R Int : 230 ms? QRS Dur : 106 ms ? ? QT Int : 402 ms ? ? ? P-R-T Axes : 048 -40 015 degrees ?? QTc Int : 452 ms ? Sinus rhythm with 1st degree A-V block Left axis deviation Minimal voltage criteria for LVH, may be normal variant ( Bala product ) Abnormal ECG When compared with ECG of 25-DEC-2020 09:17, No significant change was found Assessment and Plan Assessment Anesthesia Assessment: Chart Reviewed Documented by User: Letha Xiao MD 05/01/21 07:26 COUNTS INCLUDE 234 BEDS AT THE [facility] Past Medical History Medical History (Updated 04/25/21 @ 15:14 by Arina Loza, MARTIN) Allergic rhinitis Anxiety and depression Bronchitis Chest pain Cocaine abuse COPD exacerbation Diabetes DVT (deep venous thrombosis) Fibromyalgia HTN (hypertension) Hypothyroidism Low vitamin D level Menometrorrhagia Non-toxic multinodular goiter PTSD (post-traumatic stress disorder) Spondylosis of cervical region without myelopathy or radiculopathy Vertigo Family History Family History Father No problems noted. Mother Myocardial infarction CVA (cerebral vascular accident) Family history of problems with anesthesia: No Surgical History Surgical History H/O colonoscopy with polypectomy History of esophagogastroduodenoscopy (EGD) History of hysterectomy History of lithotripsy History of selective injection of anesthetic agent around lumbar nerve root Hx of right breast biopsy History of Problems with Anesthesia: No Social History Social History Household Members: None Alcohol intake: never Patient Tobacco Use Status: Never used Tobacco Current occupational status: disabled Meds Allergies Allergy/AdvReac Type Severity Reaction Status Date / Time aspirin [Aspirin] Allergy Mild ITCHY Verified 04/25/21 12:58 THROAT azithromycin Allergy Unknown Unknown Verified 04/25/21 12:58 naproxen Allergy Unknown Unknown Verified 04/25/21 12:58 simvastatin Allergy Unknown Unknown Verified 04/25/21 12:58 Fish Containing Products Allergy Swelling Verified 04/25/21 12:58 onion [ONION] AdvReac Mild RED FACE Verified 04/25/21 12:58 Home Medications Medication Instructions Recorded Confirmed Last Taken Type alcohol swabs 1 pad TOPICAL DAILY 11/20/19 03/08/21 Unknown History amlodipine 10 mg tablet 10 mg PO BEDTIME 11/20/19 03/29/21 Unknown History blood sugar diagnostic #10 ea 11/20/19 03/08/21 Unknown History blood-glucose meter #1 ea 11/20/19 03/08/21 Unknown History buspirone 5 mg tablet 5 mg PO BID 11/20/19 03/29/21 Unknown History calcium carbonate 600 mg-vitamin 1 tab PO BID 11/20/19 03/29/21 Unknown History D3 10 mcg (400 unit) tablet cetirizine 10 mg tablet 10 mg PO BEDTIME 11/20/19 03/29/21 Unknown History enalapril maleate 10 mg tablet 10 mg PO QAM 11/20/19 03/29/21 Unknown History fluticasone propionate 220 1 puff PO BID 11/20/19 03/29/21 Unknown History mcg/actuation HFA aerosol inhaler fluticasone propionate 50 1 spray INTRANASAL BID 11/20/19 03/29/21 Unknown History mcg/actuation nasal spray,suspension glucose 4 gram chewable tablet 16 g PO 11/20/19 03/08/21 Unknown History ipratropium 0.5 mg-albuterol 3 mg 3 ml INHALATION Q6H PRN 11/20/19 03/29/21 Unknown History (2.5 mg base)/3 mL nebulization soln lancets 33 gauge #100 ea 11/20/19 03/08/21 Unknown History potassium chloride 20 mEq 20 meq PO BID 11/20/19 03/29/21 Unknown History tablet,extended release(part/cryst) risperidone 0.5 mg tablet 0.5 mg PO BID 11/20/19 03/29/21 Unknown History zolpidem 10 mg tablet 10 mg PO BEDTIME PRN 11/20/19 03/29/21 Unknown History clonazepam 1 mg tablet (Klonopin) 1 mg PO BEDTIME 03/08/20 04/25/21 Unknown History montelukast 10 mg tablet 10 mg PO DAILY 03/08/20 03/29/21 Unknown History tramadol 50 mg tablet 50 mg PO BID PRN 03/08/20 03/29/21 Unknown History acetaminophen 325 mg tablet 650 mg PO QID tab 07/03/20 03/29/21 Unknown History Exam Airway Mallampati Class: II TM Dist: >3cm Neck ROM: Full Assessment and Plan Assessment Anesthesia Assessment: Anesthesia Plan Discussed and Smoking Cess. Discussed Final Anesthetic Review Family History of Problems with Anesthesia: No History of Problems with Anesthesia: No NPO: Yes ASA Class: III Final Preanesthetic Review: No Changes in Pt Med Stat, Meds/Allgs Chart Reviewed, Consent Obtained/Reviewed and Anes Risks/Benef Reviewed Patient Risk: Intermediate Procedure Risk: Low Anesthetic Plan Anesthetic Plan: MAC: Disposition: Standard PACU
[2021-05-01 07:52] VITALS: BP 121/84; PULSE 100; RESP 18; TEMP 36.8; O2SAT 97
[2021-05-01] MEDS: Lactated Ringers 1,000 ML 100 ML IVCONT (08:12)
--- NOTE | 2021-05-01 08:12 | PC.NURSE ---
no utox neede per dr sosa
--- NOTE | 2021-05-01 08:29 | MHC.SHP ---
Pre-Procedural Eval Section A Date of Service: 05/01/21 Section B Chief Complaint: Benign Neoplasm of colon,unspecified Details of Present Illness: hx of polyps Relevant Family History (Specify if Yes): No Relevant Social History: None Present Medications: see Short Stay Collaborative assessment Medical History: Significant History (Allergic rhinitis Anxiety and depression Bronchitis Chest pain Cocaine abuse COPD exacerbation Diabetes DVT (deep venous thrombosis) Fibromyalgia HTN (hypertension) Hypothyroidism Low vitamin D level Menometrorrhagia Non-toxic multinodular goiter PTSD (post-traumatic stress disorder) Spondylosis of ) History of Previous Operations: Relevant previous surgery/procedure and date(s) (H/O colonoscopy with polypectomy History of esophagogastroduodenoscopy (EGD) History of hysterectomy History of lithotripsy History of selective injection of anesthetic agent around lumbar nerve root Hx of right breast biopsy) Allergies: Allergies Allergy/AdvReac Type Severity Reaction Status Date / Time aspirin [Aspirin] Allergy Mild ITCHY Verified 04/25/21 12:58 THROAT azithromycin Allergy Unknown Unknown Verified 04/25/21 12:58 naproxen Allergy Unknown Unknown Verified 04/25/21 12:58 simvastatin Allergy Unknown Unknown Verified 04/25/21 12:58 Fish Containing Products Allergy Swelling Verified 04/25/21 12:58 onion [ONION] AdvReac Mild RED FACE Verified 04/25/21 12:58 Review of Systems Sugical H&P ROS: Negative: Constitution, Cardiovascular, Respiratory, Neurological, Psychiatric, Hem-Onc, Allergic/Immunologic, Gastrointestinal, Genitourinary, Musculoskeletal, Integumentary, Endocrine and Eyes/Ears/Nose/Throat Exam Surgical H&P Exam: Normal: HEENT, Normal: Heart, Normal: Lungs, Normal: Extremities, Normal: Abdomen, Normal: Skin and Normal: Neurological Plan Diagnosis/Plan: Unchanged I have reviewed the history and physical and performed a pertinent physical examination on my patient. No changes have occurred unless specified.
--- NOTE | 2021-05-01 08:32 | P.BOP_ITS ---
Brief Operative Note Date of Service: 05/01/21 Pre-op diagnosis: colon screening, hx of colon polyps Post-op diagnosis: same Procedure: see op note Surgeon: Renetta Vanessa MD Anesthesia: MAC Was an C [employer] Developer used for this Procedure?: No Estimated blood loss (mL): 0 Condition: stable Disposition: PACU
[2021-05-01 08:37] LABS: Glucose, Whole Blood 153 mg/dL (60-115)
--- NOTE | 2021-05-01 09:03 | W.PM.OPN ---
Operative Note Operative Note Date of Service: 05/01/21 Narrative: Operative Information Procedure Description: Colonoscopy COLONOSCOPY Instrument: Olympus variable stiffness pediatric scope 190L Colonoscopy Monitoring: Vital signs and clinical assessment, continuous EKG monitoring, Pulse oximetry, Carbon Dioxide monitoring and blood pressure monitoring were done throughout the procedure. Colon withdrawal time was 19 minutes. Procedure: The patient was placed in the left lateral decubitis position and pre-procedure medications were administered. After a digital rectal examination of the ano-rectum, the video colonoscope was inserted into the rectum and advanced through the colon to the cecum/TI. The colonoscope was slowly withdrawn in a retrograde panoramic fashion and the colon mucosa was carefully examined including a retroflexed view of the rectum. Findings and interventions are described below. Procedure Difficulty: moderate Findings: Terminal Ileum-normal, bx taken Cecum: localized area of edema and erythema with small erosion bx taken from here and in separate jar random right sided bx Ascending Colon: normal Transverse Colon -normal Descending Colon: 8-9 mm sessile polyp removed with cold snare Sigmoid Colon: moderate diverticulosis Rectum: Retroflexion with small internal hemorrhoids, grade I, x 3 sessile polyps noted, 8-9 mm, x2 removed with forceps and x 1 with cold snare Anorectum - normal Colon preparation: [place] Bowel Preparation Scale Right colon; 2 Transverse colon: 2 Left colon; 2 (0 = Unprepared colon segment with mucosa not seen due to solid stool that cannot be cleared. 1 = Portion of mucosa of the colon segment seen, but other areas of the colon segment not well seen due to staining, residual stool and/or opaque liquid. 2 = Minor amount of residual staining, small fragments of stool and/or opaque liquid, but mucosa of colon segment seen well. 3 = Entire mucosa of colon segment seen well with no residual staining, small fragments of stool or opaque liquid) Impression and Post Procedure Diagnosis: polyps internal hemorrhoids diverticular disease localized cecal colitis, ?medication or prep artifact Plan: High fiber diet leaflet Avoid straining at stool, epsom salts and sitz bath, anusol supps or cream Repeat Colonoscopy in 3-5 years or earlier if clinically indicated Above findings were reviewed with the patient and relevant handouts were provided if indicated.
[2021-05-01 09:11] VITALS: BP 120/78; PULSE 84; RESP 19; TEMP 36.4; O2SAT 96
[2021-05-01 09:26] VITALS: BP 127/84; PULSE 71; RESP 18; TEMP 36.4; O2SAT 97
== END 2021-05-01 09:43 | disposition home or self-care (01) ==
PROVIDERS: PCP Nurse Practitioner Primary Care; Visit Provider Internal Medicine Gastroenterology
PROC: 0DJD8ZZ Inspection of Lower Intestinal Tract, Via Natural or Artificial Opening Endoscopic (ICD-10-PCS; CPT 45378; principal; 2021-05-01 08:30)
DX: Z12.11 Encounter for screening for malignant neoplasm of colon (principal); Z86.010 Personal history of colon polyps; D12.4 Benign neoplasm of descending colon; K62.1 Rectal polyp; K57.30 Diverticulosis of large intestine without perforation or abscess without bleeding; K64.0 First degree hemorrhoids; K52.9 Noninfective gastroenteritis and colitis, unspecified; K63.89 Other specified diseases of intestine; K59.04 Chronic idiopathic constipation; K75.81 Nonalcoholic steatohepatitis (NASH); K21.9 Gastro-esophageal reflux disease without esophagitis; J44.9 Chronic obstructive pulmonary disease, unspecified; J45.50 Severe persistent asthma, uncomplicated; Z87.891 Personal history of nicotine dependence; J40 Bronchitis, not specified as acute or chronic; E11.9 Type 2 diabetes mellitus without complications; Z79.51 Long term (current) use of inhaled steroids; Z79.899 Other long term (current) drug therapy; F14.10 Cocaine abuse, uncomplicated; Z88.8 Allergy status to other drugs, medicaments and biological substances
CPT/HCPCS: 45385; 45380; 82947; 88305

== ENCOUNTER → 2021-05-07 12:29 | Outpatient (BNVA) | payer OTHER, SELFPAY | PROVIDERS: PCP Nurse Practitioner Primary Care; Visit Provider Dietitian, Registered | DX: E11.65 Type 2 diabetes mellitus with hyperglycemia (principal); I10 Essential (primary) hypertension; E03.9 Hypothyroidism, unspecified; E55.9 Vitamin D deficiency, unspecified; Z88.6 Allergy status to analgesic agent; Z88.1 Allergy status to other antibiotic agents; Z91.013 Allergy to seafood; Z88.8 Allergy status to other drugs, medicaments and biological substances; Z91.018 Allergy to other foods | CPT/HCPCS: 97803 ==

== ENCOUNTER 2021-05-10 08:34 | Outpatient (REF) | payer OTHER, SELFPAY | END 2021-05-10 08:35 | disposition home or self-care (01) | LOC: HO.MDS 08:34 | PROVIDERS: Visit Provider Internal Medicine Pulmonary Disease | DX: J45.50 Severe persistent asthma, uncomplicated (principal) | CPT/HCPCS: 96372; J2357 ==

== ENCOUNTER 2021-05-10 14:30 | Outpatient (RCR) | payer OTHER, SELFPAY ==
[2021-05-04 11:00] VITALS: BP 153/92; PULSE 77
== END 2021-06-13 08:28 | disposition home or self-care (01) ==
LOC: HO.PT 14:30
PROVIDERS: PCP Nurse Practitioner Primary Care; Visit Provider Nurse Practitioner Primary Care
DX: R42 Dizziness and giddiness (principal)
CPT/HCPCS: 95992; 97112; 97161

== ENCOUNTER → 2021-05-14 09:30 | Outpatient (BNVA) | payer OTHER, SELFPAY | PROVIDERS: PCP Nurse Practitioner Primary Care; Visit Provider Registered Nurse Diabetes Educator | DX: E11.65 Type 2 diabetes mellitus with hyperglycemia (principal) | CPT/HCPCS: 99211 ==

== ENCOUNTER 2021-05-24 09:13 | Outpatient (REF) | payer OTHER, SELFPAY | END 2021-05-24 09:14 | disposition home or self-care (01) | LOC: HO.MDS 09:13 | PROVIDERS: Visit Provider Internal Medicine Pulmonary Disease | DX: J45.50 Severe persistent asthma, uncomplicated (principal) | CPT/HCPCS: 96372; J2357 ==

== ENCOUNTER 2021-06-06 08:41 | Emergency (ER) | payer OTHER, SELFPAY ==
--- NOTE | 2021-06-06 | ECG_ITS ---
Test Reason : CHEST PAIN Blood Pressure : / mmHG Vent. Rate : 075 BPM Atrial Rate : 075 BPM P-R Int : 218 ms QRS Dur : 090 ms QT Int : 406 ms P-R-T Axes : 049 -52 042 degrees QTc Int : 453 ms Sinus rhythm with 1st degree A-V block Left anterior fascicular block Abnormal ECG When compared with ECG of 15-APR-2021 12:39, No significant change was found Referred By: Generic ED Physician Electronically Signed By:BEHZAD LOUIE MD
--- NOTE | ~2021-06-06 | CT_ITS ---
EXAMINATION: CT angio head neck CLINICAL INFORMATION: Dizziness and headache. COMPARISON: CT scan of the head 09/19/2019. TECHNIQUE: Process Designer images were obtained. A CT angiogram of the head and neck was performed in the arterial phase after the intravenous administration of 50 mL Omnipaque 350. Pre and delayed postcontrast images of the head were also obtained. MIP reconstructions were generated in multiple orientations at the acquisition workstation. Multiple three-dimensional surface rendered images and maximum intensity projection images were generated on a dedicated 3-D lab workstation. Arterial stenoses are measured in accordance with NASCET criteria or similar method if applicable. This CT examination was performed using dose optimization techniques as appropriate, including one or more of the following: Automated exposure control, iterative reconstruction, and adjustment of technique factors (mA and/or kVp) according to patient size (this includes techniques or standardized protocols for targeted exams where dose is matched to indication/reason for exam). Total exam dose-length product 2447 mGy-cm FINDINGS: Head: There is no acute intracranial hemorrhage or abnormal extra-axial collection. Postcontrast images reveal no abnormal mass or enhancement within the intracranial compartment. There is no intracranial mass effect or midline shift. No abnormal extra-axial collection. Lateral and third ventricles are normal. No hydrocephalus. There are a few tiny chronic bilateral cerebellar infarcts and a few scattered nonspecific foci of hypoattenuation within the periventricular white matter. Huston-white matter differentiation is otherwise preserved and there is no evidence of acute territorial infarct. The calvarium and skull base are intact. Mastoid air cells and middle ear cavities are well aerated. There is mild to moderate mucosal thickening within the alveolar recesses of the maxillary sinuses. Globes and orbits are grossly symmetric. CT angiogram neck: The aortic arch apex is normal. Origins of the major aortic branches are widely patent. Common carotid arteries are patent. Heavily calcified atheromatous plaque involves both carotid bifurcations. No stenosis of the extracranial internal carotid arteries. The cervical segments of the vertebral arteries as well as their origins are grossly patent. Of note the proximal V2 segments of both vertebral arteries are obscured by reflux of high density venous contrast. CT angiogram head: There is a 0.4 cm posteriorly projecting aneurysm involving the left extradural internal carotid artery at the junction of the vertical and horizontal petrous segments that causes chronic remodeling of the left temporal bone best depicted on axial image 452 of 1129 series 10. Intracranial internal carotid arteries are otherwise normal. The intradural vertebral artery segments and basilar artery are normal. Anterior, middle, and posterior cerebral artery complexes are normal. No intracranial large vessel occlusion. The timing of contrast injection provides adequate opacification of the dural venous sinuses which are patent. Other: Soft tissues of the neck including the thyroid gland are normal. Grossly no pathologically enlarged cervical lymph nodes. Visualized lung apices are clear. CT/CT angio head neck IMPRESSION: There is a 0.5 cm incidental aneurysm involving the left extradural internal carotid artery at the junction of the vertical and horizontal petrous segments causing chronic remodeling of the left petrous temporal bone. No intradural aneurysm. Heavily calcified atheromatous plaque involves both carotid bifurcations. No stenosis of the cervical carotid or vertebral arteries is identified on this examination. Of note the proximal V2 segments of both vertebral arteries are partially obscured by reflux of high density venous contrast into the vertebral veins. No intracranial large vessel occlusion. There are a few small chronic bilateral cerebellar infarcts and a few scattered chronic small vessel ischemic changes within the periventricular white matter. No evidence of acute territorial infarct or hemorrhage. No abnormal intracranial mass or enhancement.
--- NOTE | ~2021-06-06 | XR_ITS ---
EXAMINATION: XR CHEST CLINICAL INFORMATION: Chest pain. COMPARISON: 03/29/2021 chest radiographs. TECHNIQUE: Frontal view of the chest was obtained. FINDINGS: No significant abnormality is noted involving the heart, lungs, mediastinum, bony thorax or soft tissues. XR/XR chest 1V IMPRESSION: No acute cardiopulmonary process.
[2021-06-06 08:53] VITALS: BP 132/96; PULSE 79; RESP 18; TEMP 36.6; O2SAT 96; BMI 36.0
[2021-06-06 09:08] LABS: Glucose, Whole Blood 133 mg/dL (60-115)
--- NOTE | 2021-06-06 09:09 | ED_ITS ---
HPI - Chest Pain General Chief Complaint: Chest Pain Stated Complaint: DIZZY CHEST HEAVYNESS Time Seen by Provider: 06/06/21 09:05 Source: patient Limitations: language barrier (Stacker Driver used) History of Present Illness HPI narrative: This is a 6-year-old female with a history of hypertension, hyperlipidemia, aov-avwddyx-tgumjqohe diabetes mellitus, COPD, PTSD, depression anxiety, fibromyalgia, among many other problems who complains of a feeling of dizziness and chest pain. The patient started with some right-sided headache and neck pain yesterday then developed feeling of dizziness which she said does not feel like her usual vertigo. This morning she felt very unsteady of trying to stand up. Dizziness is worse with turning her head to the left. He denies any ear complaints, does use ear drops for her right ear. She has some headache this morning. She denies any nausea or vomiting. She has had discomfort in her chest this morning but denies any new shortness of breath. She denies any swelling in her extremities. She does have a heaviness in all 4 for arms and legs. She has had constipation and some abdominal discomfort associated with that. Related Data Home Medications Medication Instructions Recorded Confirmed alcohol swabs 1 pad TOPICAL DAILY 11/20/19 03/08/21 amlodipine 10 mg tablet 10 mg PO BEDTIME 11/20/19 03/29/21 blood sugar diagnostic #10 ea 11/20/19 03/08/21 blood-glucose meter #1 ea 11/20/19 03/08/21 buspirone 5 mg tablet 5 mg PO BID 11/20/19 03/29/21 calcium carbonate 600 mg-vitamin 1 tab PO BID 11/20/19 03/29/21 D3 10 mcg (400 unit) tablet cetirizine 10 mg tablet 10 mg PO BEDTIME 11/20/19 03/29/21 enalapril maleate 10 mg tablet 10 mg PO QAM 11/20/19 03/29/21 fluticasone propionate 220 1 puff PO BID 11/20/19 03/29/21 mcg/actuation HFA aerosol inhaler fluticasone propionate 50 1 spray INTRANASAL BID 11/20/19 03/29/21 mcg/actuation nasal spray,suspension glucose 4 gram chewable tablet 16 g PO 11/20/19 03/08/21 ipratropium 0.5 mg-albuterol 3 mg 3 ml INHALATION Q6H PRN 11/20/19 03/29/21 (2.5 mg base)/3 mL nebulization soln lancets 33 gauge #100 ea 11/20/19 03/08/21 potassium chloride 20 mEq 20 meq PO BID 11/20/19 03/29/21 tablet,extended release(part/cryst) risperidone 0.5 mg tablet 0.5 mg PO BID 11/20/19 03/29/21 zolpidem 10 mg tablet 10 mg PO BEDTIME PRN 11/20/19 03/29/21 clonazepam 1 mg tablet (Klonopin) 1 mg PO BEDTIME 03/08/20 04/25/21 montelukast 10 mg tablet 10 mg PO DAILY 03/08/20 03/29/21 tramadol 50 mg tablet 50 mg PO BID PRN 03/08/20 03/29/21 acetaminophen 325 mg tablet 650 mg PO QID tab 07/03/20 03/29/21 Previous Rx's Medication Instructions Recorded leg brace (Knee Support Brace) #2 ea 03/08/20 dextrose 40 % oral gel (Dex4 10 g PO Q15M PRN 30 Days #37.5 g 08/24/20 Glucose) albuterol sulfate 90 mcg/actuation 2 puff INHALATION Q4-6H PRN #6.7 g 09/29/20 aerosol inhaler Lactobacillus rhamnosus GG 10 1 cap PO DAILY 30 Days #30 cap 11/17/20 billion cell capsule (Culturelle) tiotropium bromide 18 mcg capsule 1 cap INHALATION DAILY 30 Days #30 01/18/21 with inhalation device (Spiriva inh with HandiHaler) phenazopyridine 100 mg tablet 100 mg PO TID #6 tab 01/22/21 (Pyridium) terconazole 0.8 % vaginal cream 1 appful VAGINAL BEDTIME 3 Days 01/30/21 #20 g gabapentin 400 mg capsule 400 mg PO BID #60 cap 02/06/21 omalizumab 150 mg/mL subcutaneous 300 mg (2 mL) SUBCUT Q2W #2 ml 02/19/21 syringe hydrocortisone 2.5 % topical cream 1 appl VT BID PRN #30 g 02/26/21 with perineal applicator (Proctozone-HC) bisacodyl 5 mg tablet,delayed 10 mg PO BEDTIME 2 Days #4 tab 03/19/21 release (Dulcolax (bisacodyl)) docusate sodium 100 mg capsule 100 mg PO BID 30 Days #60 cap 03/19/21 magnesium citrate 150 ml PO DAILY #300 ml 03/19/21 metoclopramide HCl 5 mg tablet 5 mg PO QIDACHS 30 Days #120 tab 03/19/21 (Reglan) omeprazole 20 mg capsule,delayed 20 mg PO BID 60 Days #120 cap 03/19/21 release plecanatide 3 mg tablet (Trulance) 3 mg PO DAILY 30 Days #30 tab 03/19/21 sennosides 8.6 mg capsule (senna) 17.2 mg PO BEDTIME 30 Days #60 cap 03/19/21 atorvastatin 80 mg tablet 80 mg PO DAILY 30 Days #30 tab 03/29/21 sodium,potassium,mag sulfates 17.5 See Rx Instructions PO .COMPLEX 04/04/21 gram-3.13 gram-1.6 gram oral soln #354 ml (Suprep Bowel Prep Kit) peg 3350-electrolytes 236 240 ml PO Q10M 1 Days #4000 ml 04/05/21 gram-22.74 gram-6.74 gram-5.86 gram solution (Golytely) aluminum-mag hydroxide-simethicone 5 ml PO 5XD PRN #30 ml 04/15/21 200 mg-200 mg-20 mg/5 mL oral susp (Maalox Advanced) famotidine 20 mg tablet (Pepcid) 20 mg PO DAILY #14 tab 04/15/21 meclizine 25 mg tablet 25 mg PO TID PRN #14 tab 04/15/21 levothyroxine 75 mcg tablet 75 mcg PO DAILY 90 Days #90 tab 04/16/21 meclizine 25 mg chewable tablet 12.5 mg PO TID PRN #20 tab 06/06/21 (Bonine) Allergies Allergy/AdvReac Type Severity Reaction Status Date / Time aspirin [Aspirin] Allergy Mild ITCHY Verified 04/25/21 12:58 THROAT azithromycin Allergy Unknown Unknown Verified 04/25/21 12:58 naproxen Allergy Unknown Unknown Verified 04/25/21 12:58 simvastatin Allergy Unknown Unknown Verified 04/25/21 12:58 Fish Containing Products Allergy Swelling Verified 04/25/21 12:58 onion [ONION] AdvReac Mild RED FACE Verified 04/25/21 12:58 Review of Systems Review of Systems: Yes all other systems are reviewed and are negative [facility] Past Medical History Medical History (Updated 06/06/21 @ 12:24 by Bronson Mccarty MD) Allergic rhinitis Anxiety and depression Bronchitis Chest pain Cocaine abuse COPD exacerbation Diabetes DVT (deep venous thrombosis) Fibromyalgia HTN (hypertension) Hypothyroidism Low vitamin D level Menometrorrhagia Non-toxic multinodular goiter PTSD (post-traumatic stress disorder) Spondylosis of cervical region without myelopathy or radiculopathy Vertigo Surgical History H/O colonoscopy with polypectomy History of esophagogastroduodenoscopy (EGD) History of hysterectomy History of lithotripsy History of selective injection of anesthetic agent around lumbar nerve root Hx of right breast biopsy Family History Family History Father No problems noted. Mother Myocardial infarction CVA (cerebral vascular accident) Social History Social History Household Members: None Alcohol intake: never Patient Tobacco Use Status: Never used Tobacco Use of substances other than those prescribed or required for medical reasons: No Advance Directives: No Advance Directives Information Provided: No Patient : No Current occupational status: disabled Physical Exam Vital Signs: Vital Signs: Last Vital Signs Temp 98.0 F 06/06/21 11:42 Pulse 65 06/06/21 13:20 Resp 18 06/06/21 13:20 BP 123/74 06/06/21 13:20 Pulse Ox 97 06/06/21 13:20 BMI result Body Mass Index 36.0 Const: Other: Somewhat anxious appearing General: cooperative and no acute distress Nutritional Appearance: obese Orientation/consciousness: patient oriented x3 HEENT: Head: Yes normal to inspection Ears: hearing grossly normal bilaterally and TM's normal bilaterally Mouth: Normal oral and palatal mucosa present Eyes: General: appearance normal, both eyes and all related structures Resp: Effort & Inspection: normal respiratory effort Auscultation: clear to auscultation bilaterally Cardio: Jugular venous distension: no JVD Rate: regular rate Rhythm: regular rhythm Heart sounds: S1 normal heart sound present, S2 normal heart sound present, no gallops, no murmurs and no rubs GI: Palpation (GI): Soft to palpation and nontender Skin: Other: Warm and dry Neuro: General: patient oriented x3 and CN's II-XI intact bilaterally Motor exam (neuro): 5/5 motor strength present throughout MDM - Chest Pain MDM Narrative Medical decision making narrative: Patient with history of anxiety, had myriad complaints including headache, dizziness, chest pain. Given the patient's age risk factors, CTA of the head and neck was done to rule out any evidence of arterial dissection or hemorrhagic stroke. Patient was treated with Ativan and had relief of her symptoms. CTA other workup is negative, except for incidental finding of a carotid artery aneurysm, which can be worked up as an outpatient. Lab Data Attestation: I reviewed the patient's lab results. Result diagrams: 06/06/21 09:35 06/06/21 09:35 Labs: Lab Results 06/06/21 06/06/21 06/06/21 Range/Units 08:57 09:35 09:35 WBC 5.9 (4.8-10.8) X10*3/uL RBC 4.39 (4.20-5.50) X10*6/uL Hgb 13.7 (12.0-16.0) g/dl Hct 41.4 (37.0-47.0) % MCV 94.3 (80.0-98.0) fL MCH 31.2 (27.0-33.0) pg MCHC 33.1 (31.0-35.0) g/dl RDW 13.3 (11.0-16.0) % Plt Count 250 (160-400) X10*3/uL MPV 9.7 (9.4-12.3) fL Immature Gran % (Auto) 0.2 (0.0-0.4) % Neut % (Auto) 48.1 (45-73) % Lymph % (Auto) 34.2 (20-40) % Swisher % (Auto) 7.9 (2-11) % Eos % (Auto) 9.1 H (0-4) % Baso % (Auto) 0.5 (0-2) % Lymph # (Auto) 2.0 (1.2-4.9) X10*3/uL Swisher # (Auto) 0.5 (0.1-1.2) X10*3/uL Eos # (Auto) 0.5 H (0.0-0.4) X10*3/uL Baso # (Auto) 0.0 (0.0-0.2) X10*3/uL Abs Immat Gran (auto) 0.01 (0.00-0.03) X10*3/uL Absolute Neuts (auto) 2.8 (2.0-8.3) x10*3/uL Absolute Nucleated RBC 0.000 (0.0-0.012) X10*3/uL Nucleated RBC % (auto) 0.0 (0.0-0.2) /100WBC Sodium 142 (135-145) mmol/L Potassium 3.9 (3.3-5.1) mmol/L Chloride 108 (96-108) mmol/L Carbon Dioxide 27 (22-29) mmol/L Anion Gap 11 L (12-20) BUN 12 (9-16) mg/dL Creatinine 0.84 (0.5-1.4) mg/dL Estim Creat Clear Calc 76.8 Estimated GFR > 60 POC Glucose 133 H (60-115) mg/dL Random Glucose 148 H (60-115) mg/dL Calcium 9.5 (8.4-10.2) mg/dL Troponin I High Sens (<3.5-17.0) ng/L 06/06/21 Range/Units 09:35 WBC (4.8-10.8) X10*3/uL RBC (4.20-5.50) X10*6/uL Hgb (12.0-16.0) g/dl Hct (37.0-47.0) % MCV (80.0-98.0) fL MCH (27.0-33.0) pg MCHC (31.0-35.0) g/dl RDW (11.0-16.0) % Plt Count (160-400) X10*3/uL MPV (9.4-12.3) fL Immature Gran % (Auto) (0.0-0.4) % Neut % (Auto) (45-73) % Lymph % (Auto) (20-40) % Swisher % (Auto) (2-11) % Eos % (Auto) (0-4) % Baso % (Auto) (0-2) % Lymph # (Auto) (1.2-4.9) X10*3/uL Swisher # (Auto) (0.1-1.2) X10*3/uL Eos # (Auto) (0.0-0.4) X10*3/uL Baso # (Auto) (0.0-0.2) X10*3/uL Abs Immat Gran (auto) (0.00-0.03) X10*3/uL Absolute Neuts (auto) (2.0-8.3) x10*3/uL Absolute Nucleated RBC (0.0-0.012) X10*3/uL Nucleated RBC % (auto) (0.0-0.2) /100WBC Sodium (135-145) mmol/L Potassium (3.3-5.1) mmol/L Chloride (96-108) mmol/L Carbon Dioxide (22-29) mmol/L Anion Gap (12-20) BUN (9-16) mg/dL Creatinine (0.5-1.4) mg/dL Estim Creat Clear Calc Estimated GFR POC Glucose (60-115) mg/dL Random Glucose (60-115) mg/dL Calcium (8.4-10.2) mg/dL Troponin I High Sens < 3.5 (<3.5-17.0) ng/L Imaging Data Chest x-ray: Radiologist's impression: IMPRESSION: No acute cardiopulmonary process. CTA head neck: Radiologist's impression: IMPRESSION: There is a 0.5 cm incidental aneurysm involving the left extradural internal carotid artery at the junction of the vertical and horizontal petrous segments causing chronic remodeling of the left petrous temporal bone. No intradural aneurysm. Heavily calcified atheromatous plaque involves both carotid bifurcations. No stenosis of the cervical carotid or vertebral arteries is identified on this examination. Of note the proximal V2 segments of both vertebral arteries are partially obscured by reflux of high density venous contrast into the vertebral veins. No intracranial large vessel occlusion. There are a few small chronic bilateral cerebellar infarcts and a few scattered chronic small vessel ischemic changes within the periventricular white matter. No evidence of acute territorial infarct or hemorrhage. No abnormal intracranial mass or enhancement. ECG Data ECG #1: ECG interpretation date: 06/06/21 ECG interpretation time: 09:18 Interpretation: Sinus rhythm with first-degree AV block. Rate of 75. Artifact in lead these 6. Pulse artifact in lead V3. No apparent ST elevation or depression. No ectopy. Left anterior fascicular block. Discharge Plan Discharge Clinical Impression: Headache, Vertigo, Aneurysm of carotid artery Patient Disposition: Home, Self-Care Instructions: Vertigo (ED), Acute Headache (ED) Additional Instructions: Follow-up with her primary care physician. You had an incidental finding of a 0.4 cm posteriorly projecting aneurysm involving the left extradural internal carotid artery at the junction of the vertical and horizontal petrous segments that causes chronic remodeling of the left temporal bone?. This is not an acute finding and is not causing her symptoms today, however you should have appropriate follow-up for it. Return for any new or worsened symptoms. Use Antivert as prescribed Prescriptions: New meclizine [Bonine] 25 mg tablet,chewable 12.5 mg PO TID PRN (Reason: dizziness) Qty: 20 0RF No Action dextrose [Dex4 Glucose] 40 % gel 10 g PO Q15M PRN (Reason: hypoglycemia) 30 Days Qty: 37.5 5RF Rx Instructions: until symptoms of low blood sugar are controlled Culturelle 10 billion cell capsule 1 cap PO DAILY 30 Days Qty: 30 6RF gabapentin 400 mg capsule 400 mg PO BID Qty: 60 5RF omalizumab 150 mg/mL syringe 300 mg subcut Q2W Qty: 2 12RF hydrocortisone [Proctozone-HC] 2.5 % cream with perineal applicator 1 appl VT BID PRN (Reason: hemorrhoids) Qty: 30 6RF atorvastatin 80 mg tablet 80 mg PO DAILY 30 Days Qty: 30 4RF Suprep Bowel Prep Kit 17.5-3.13-1.6 gram recon soln See Rx Instructions PO .COMPLEX Qty: 354 0RF Rx Instructions: DILUTE; drink full amount early evening before AND next morning at least 2 hr before procedure; follow w 32 oz. water PO peg 3350-electrolytes [Golytely] 236-22.74-6.74 -5.86 gram recon soln 240 ml PO Q10M 1 Days Qty: 4000 0RF Rx Instructions: until fecal effluent is clear; do not exceed a total volume of 2,000 mL levothyroxine 75 mcg tablet 75 mcg PO DAILY 90 Days Qty: 90 1RF albuterol sulfate 90 mcg/actuation HFA aerosol inhaler 2 puff inhalation Q4-6H PRN (Reason: shortness of breath or wheezing) Qty: 6.7 0RF phenazopyridine [Pyridium] 100 mg tablet 100 mg PO TID Qty: 6 0RF famotidine [Pepcid] 20 mg tablet 20 mg PO DAILY Qty: 14 0RF alum-mag hydroxide-simeth [Maalox Advanced] 200-200-20 mg/5 mL suspension 5 ml PO 5XD PRN (Reason: dyspepsia) Qty: 30 0RF Rx Instructions: administer between meals and at bedtime meclizine 25 mg tablet 25 mg PO TID PRN (Reason: dizziness) Qty: 14 0RF tramadol 50 mg tablet 50 mg PO BID PRN (Reason: Pain) 0RF montelukast 10 mg tablet 10 mg PO DAILY 0RF clonazepam [Klonopin] 1 mg tablet 1 mg PO BEDTIME 0RF Rx Instructions: administer 30 minutes before bedtime (DME) Knee Support Brace Misc See Rx Instructions .ROUTE .MEDSUPPLY Qty: 2 0RF Rx Instructions: As directed bisacodyl [Dulcolax (bisacodyl)] 5 mg tablet,delayed release (DR/EC) 10 mg PO BEDTIME 2 Days Qty: 4 0RF magnesium citrate Solution 150 ml PO DAILY Qty: 300 0RF docusate sodium 100 mg capsule 100 mg PO BID 30 Days Qty: 60 5RF omeprazole 20 mg capsule,delayed release(DR/EC) 20 mg PO BID 60 Days Qty: 120 6RF Trulance 3 mg tablet 3 mg PO DAILY 30 Days Qty: 30 6RF Rx Instructions: Take one tablet by mouth once a day senna 8.6 mg capsule 17.2 mg PO BEDTIME 30 Days Qty: 60 6RF metoclopramide HCl [Reglan] 5 mg tablet 5 mg PO QIDACHS 30 Days Qty: 120 6RF Rx Instructions: Provider aware of possible interaction and pt is being monitored glucose 4 gram tablet,chewable 16 g PO 0RF ipratropium-albuterol 0.5 mg-3 mg(2.5 mg base)/3 mL solution for nebulization 3 ml inhalation Q6H PRN (Reason: Shortness Of Breath) 0RF alcohol swabs Pads, Medicated 1 pad topical DAILY 0RF zolpidem 10 mg tablet 10 mg PO BEDTIME PRN (Reason: Insomnia) 0RF buspirone 5 mg tablet 5 mg PO BID 0RF fluticasone propionate 50 mcg/actuation spray,suspension 1 spray intranasal BID 0RF risperidone 0.5 mg tablet 0.5 mg PO BID 0RF amlodipine 10 mg tablet 10 mg PO BEDTIME 0RF enalapril maleate 10 mg tablet 10 mg PO QAM 0RF (DME) lancets 33 gauge misc See Rx Instructions ea Not Applicable DAILY Qty: 100 0RF Rx Instructions: As directed Flovent HFA 220 mcg/actuation HFA aerosol inhaler 1 puff PO BID 0RF (DME) FreeStyle Lite Strips Strip See Rx Instructions ea Not Applicable DAILY Qty: 10 0RF Rx Instructions: As directed calcium carbonate-vitamin D3 600 mg(1,500mg) -400 unit tablet 1 tab PO BID 0RF potassium chloride 20 mEq tablet,ER particles/crystals 20 meq PO BID 0RF cetirizine 10 mg tablet 10 mg PO BEDTIME 0RF (DME) blood-glucose meter Kit See Rx Instructions ea .ROUTE DAILY Qty: 1 0RF Rx Instructions: As directed acetaminophen 325 mg tablet 650 mg PO QID 0RF Spiriva with HandiHaler 18 mcg capsule, w/inhalation device 1 cap inhalation DAILY 30 Days Qty: 30 6RF Rx Instructions: puncture 1 cap using device; one dose = 2 inhalations terconazole 0.8 % cream 1 appful vaginal BEDTIME 3 Days Qty: 20 0RF Interventions: ED Discharge Assessment Last Done: 06/06/21 13:22 Discharge Date/Time: 06/06/21 13:23
[2021-06-06] MEDS: LORazepam 2 MG/ML VIAL 1 MG IVPUSH (09:36)
[2021-06-06 09:44] LABS: MANUAL DIFF FLAG NO
[2021-06-06 09:46] LABS: Basophils Percent Auto 0.5 % (0-2); Eosinophils Absolute Auto 0.5 X10*3/uL (0.0-0.4); Eosinophils Percent Auto 9.1 % (0-4); Hematocrit 41.4 % (37.0-47.0); Hemoglobin 13.7 g/dl (12.0-16.0); Imm Gran Abs Auto 0.01 X10*3/uL (0.00-0.03); Imm Gran Pct Auto 0.2 % (0.0-0.4); Lymphocytes Percent Auto 34.2 % (20-40); Mean Corpuscular HGB Conc 33.1 g/dl (31.0-35.0); Mean Corpuscular Hemoglobin 31.2 pg (27.0-33.0); Mean Corpuscular Volume 94.3 fL (80.0-98.0); Mean Platelet Volume 9.7 fL (9.4-12.3); Monocytes Absolute Auto 0.5 X10*3/uL (0.1-1.2); Monocytes Percent Auto 7.9 % (2-11); Neutrophils Absolute Auto 2.8 x10*3/uL (2.0-8.3); Neutrophils Percent Auto 48.1 % (45-73); Platelet Count 250 X10*3/uL (160-400); Red Blood Count 4.39 X10*6/uL (4.20-5.50); Red Cell Distribution Width 13.3 % (11.0-16.0); White Blood Count 5.9 X10*3/uL (4.8-10.8)
[2021-06-06 10:00] LABS: Anion Gap 11 (12-20); Blood Urea Nitrogen 12 mg/dL (9-16); Calcium 9.5 mg/dL (8.4-10.2); Carbon Dioxide 27 mmol/L (22-29); Chloride 108 mmol/L (96-108); Creatinine Clr Calc Pharmacy 76.8; Estimated Glomerular Filt Rate > 60; Glucose Random 148 mg/dL (60-115); Potassium 3.9 mmol/L (3.3-5.1); Sodium 142 mmol/L (135-145)
[2021-06-06 10:07] LABS: Troponin-I High Sensitivity < 3.5 ng/L (<3.5-17.0)
[2021-06-06] MEDS: iohexoL 350 MG/ML 100 ML INFUS..BTL IV (11:21)
[2021-06-06 11:42] VITALS: BP 123/74; PULSE 59; RESP 17; TEMP 36.7; O2SAT 96
[2021-06-06 13:20] VITALS: BP 123/74; PULSE 65; RESP 18; O2SAT 97
== END 2021-06-06 13:23 | disposition home or self-care (01) ==
PROVIDERS: Emergency Provider Emergency Medicine; PCP Nurse Practitioner Primary Care
DX: I72.0 Aneurysm of carotid artery (principal); R51.9 Headache, unspecified; R42 Dizziness and giddiness; I10 Essential (primary) hypertension; E11.9 Type 2 diabetes mellitus without complications; J44.9 Chronic obstructive pulmonary disease, unspecified; F43.10 Post-traumatic stress disorder, unspecified; F41.9 Anxiety disorder, unspecified; Z86.718 Personal history of other venous thrombosis and embolism
CPT/HCPCS: 36415; 70496; 70498; 71045; 80048; 82947; 84484; 85025; 93005; 96374; 99284; J2060; Q9967

== ENCOUNTER 2021-06-07 09:08 | Outpatient (REF) | payer OTHER, SELFPAY | END 2021-06-07 09:09 | disposition home or self-care (01) | LOC: HO.MDS 09:08 | PROVIDERS: Visit Provider Internal Medicine Pulmonary Disease | DX: J45.50 Severe persistent asthma, uncomplicated (principal) | CPT/HCPCS: 96372; J2357 ==

== ENCOUNTER 2021-06-18 13:59 | Outpatient (REF) | payer OTHER, SELFPAY ==
[2021-06-18 16:26] LABS: Alanine Aminotransferase 20 U/L (0-31); Albumin Level 4.2 g/dL (3.5-5.0); Alkaline Phosphatase 96 U/L (39-117); Anion Gap 10 (12-20); Aspartate Amino Transferase 21 U/L (5-31); Bilirubin Total 0.4 mg/dL (0.0-1.0); Blood Urea Nitrogen 24 mg/dL (9-16); Calcium 9.6 mg/dL (8.4-10.2); Carbon Dioxide 27 mmol/L (22-29); Chloride 109 mmol/L (96-108); Estimated Glomerular Filt Rate > 60; Glucose Random 120 mg/dL (60-115); Potassium 4.1 mmol/L (3.3-5.1); Sodium 142 mmol/L (135-145); Total Protein 7.1 g/dL (6.5-8.0)
[2021-06-22 11:32] LABS: Alpha Fetoprotein 1.9 ng/mL
== END 2021-06-18 14:00 | disposition home or self-care (01) ==
LOC: HO.LAB 13:59
PROVIDERS: PCP Nurse Practitioner Primary Care; Referring Provider Nurse Practitioner Primary Care; Visit Provider Nurse Practitioner
DX: Z01.818 Encounter for other preprocedural examination (principal); K75.81 Nonalcoholic steatohepatitis (NASH); K59.04 Chronic idiopathic constipation; K21.9 Gastro-esophageal reflux disease without esophagitis; D12.6 Benign neoplasm of colon, unspecified
CPT/HCPCS: 36415; 80053; 82105; 99212

== ENCOUNTER 2021-06-21 13:24 | Outpatient (REF) | payer OTHER, SELFPAY | END 2021-06-21 13:25 | disposition home or self-care (01) | LOC: HO.MDS 13:24 | PROVIDERS: Visit Provider Internal Medicine Pulmonary Disease | DX: J45.50 Severe persistent asthma, uncomplicated (principal) | CPT/HCPCS: 96372; J2357 ==

== ENCOUNTER 2021-06-29 08:40 | Outpatient (REF) | payer OTHER, SELFPAY | END 2021-06-29 08:41 | disposition home or self-care (01) | LOC: HO.LAB 08:40 | PROVIDERS: PCP Nurse Practitioner Primary Care | DX: N39.0 Urinary tract infection, site not specified (principal); N20.0 Calculus of kidney | CPT/HCPCS: 87086; 99202 ==

== ENCOUNTER 2021-06-30 12:22 | Emergency (ER) | payer OTHER, SELFPAY ==
--- NOTE | ~2021-06-30 | XR_ITS ---
EXAMINATION: XR CHEST CLINICAL INFORMATION: Chest pain COMPARISON: chest x-ray June 06, 2021 TECHNIQUE: Frontal view of the chest was obtained. FINDINGS: Cardiac silhouette is normal in size. The lungs are well aerated. There is no lobar consolidation. Subtle linear opacity in the left lung base is most suggestive of atelectasis. No pleural effusion. No pneumothorax. XR/XR chest 1V IMPRESSION: No acute pulmonary pathology.
--- NOTE | 2021-06-30 12:26 | ECG_ITS ---
Test Reason : CP Blood Pressure : / mmHG Vent. Rate : 078 BPM Atrial Rate : 078 BPM P-R Int : 218 ms QRS Dur : 094 ms QT Int : 390 ms P-R-T Axes : 057 -41 032 degrees QTc Int : 444 ms Sinus rhythm with 1st degree A-V block Left axis deviation Abnormal ECG When compared with ECG of 06-JUN-2021 08:50, No significant change was found Referred By: Generic ED Physician Electronically Signed By:BEHZAD LOUIE MD
[2021-06-30 12:35] VITALS: BP 129/78; PULSE 80; RESP 16; TEMP 36.6; O2SAT 98; BMI 31.6
[2021-06-30 12:40] LABS: Basophils Percent Auto 0.5 % (0-2); Eosinophils Absolute Auto 0.1 X10*3/uL (0.0-0.4); Eosinophils Percent Auto 1.4 % (0-4); Hematocrit 40.2 % (37.0-47.0); Hemoglobin 13.4 g/dl (12.0-16.0); Imm Gran Abs Auto 0.01 X10*3/uL (0.00-0.03); Imm Gran Pct Auto 0.2 % (0.0-0.4); Lymphocytes Absolute Auto 3.2 X10*3/uL (1.2-4.9); Lymphocytes Percent Auto 51.4 % (20-40); MANUAL DIFF FLAG NO; Mean Corpuscular HGB Conc 33.3 g/dl (31.0-35.0); Mean Corpuscular Hemoglobin 31.5 pg (27.0-33.0); Mean Corpuscular Volume 94.4 fL (80.0-98.0); Mean Platelet Volume 9.3 fL (9.4-12.3); Monocytes Absolute Auto 0.5 X10*3/uL (0.1-1.2); Monocytes Percent Auto 7.9 % (2-11); Neutrophils Absolute Auto 2.4 x10*3/uL (2.0-8.3); Neutrophils Percent Auto 38.6 % (45-73); Platelet Count 272 X10*3/uL (160-400); Red Blood Count 4.26 X10*6/uL (4.20-5.50); Red Cell Distribution Width 13.4 % (11.0-16.0); White Blood Count 6.2 X10*3/uL (4.8-10.8)
[2021-06-30 12:56] LABS: Anion Gap 12 (12-20); Blood Urea Nitrogen 15 mg/dL (9-16); Calcium 9.6 mg/dL (8.4-10.2); Carbon Dioxide 24 mmol/L (22-29); Chloride 110 mmol/L (96-108); Creatinine Clr Calc Pharmacy 83.5; Estimated Glomerular Filt Rate > 60; Glucose Random 128 mg/dL (60-115); Potassium 3.7 mmol/L (3.3-5.1); Sodium 142 mmol/L (135-145)
[2021-06-30 13:04] LABS: Troponin-I High Sensitivity < 3.5 ng/L (<3.5-17.0)
== END 2021-06-30 16:41 | disposition left against medical advice (07) ==
PROVIDERS: Emergency Provider Emergency Medicine; PCP Nurse Practitioner Primary Care
DX: R07.9 Chest pain, unspecified (principal); M79.601 Pain in right arm; R20.0 Anesthesia of skin
CPT/HCPCS: 36415; 71045; 80048; 84484; 85025; 93005; 99281; 99283

== ENCOUNTER → 2021-07-04 12:38 | Outpatient (BNVA) | payer OTHER, SELFPAY | PROVIDERS: PCP Nurse Practitioner Primary Care; Visit Provider Dietitian, Registered | DX: E11.65 Type 2 diabetes mellitus with hyperglycemia (principal) | CPT/HCPCS: 97803 ==

== ENCOUNTER 2021-07-05 11:45 | Outpatient (REF) | payer OTHER, SELFPAY | END 2021-07-05 11:46 | disposition home or self-care (01) | LOC: HO.MDS 11:45 | PROVIDERS: Visit Provider Internal Medicine Pulmonary Disease | DX: J45.50 Severe persistent asthma, uncomplicated (principal) | CPT/HCPCS: 96372; J2357 ==

== ENCOUNTER 2021-07-06 08:44 | Emergency (ER) | payer OTHER, SELFPAY ==
--- NOTE | 2021-07-06 | ECG_ITS ---
Test Reason : L ARM NUMBNESS Blood Pressure : / mmHG Vent. Rate : 078 BPM Atrial Rate : 078 BPM P-R Int : 208 ms QRS Dur : 104 ms QT Int : 398 ms P-R-T Axes : 048 -46 038 degrees QTc Int : 453 ms Normal sinus rhythm with 1st degree A-V block Left axis deviation Abnormal ECG When compared with ECG of 30-JUN-2021 12:25, No significant change was found Referred By: Generic ED Physician Electronically Signed By:LIVE YANEZ
--- NOTE | ~2021-07-06 | CT_ITS ---
EXAMINATION: CT HEAD WITHOUT CONTRAST CLINICAL INFORMATION: Left-sided numbness. COMPARISON: None TECHNIQUE: Contiguous axial imaging was performed from the skull base to vertex without intravenous administration of contrast. Coronal and sagittal reformatted images were obtained. This CT examination was performed using dose optimization techniques as appropriate, variously including the following: *Automated exposure control *Adjustment of mA and/or kV according to patient size (this includes techniques or standardized protocols for targeted exams where dose is matched to indication/reason for exam; i.e. extremities or head) *Use of iterative reconstruction technique DLP: 751.57 mGy-cm FINDINGS: There is no evidence of acute intracranial hemorrhage or territorial infarction. No abnormal mass effect or midline shift is seen. [place] to white matter differentiation is well preserved. No extra-axial fluid collections are identified. The ventricles are normal in size. There is no abnormal attenuation within the brain parenchyma. The osseous structures and soft tissues are normal. The mastoid air cells and visualized portions of the paranasal sinuses are well aerated. Left yusra bullosa and mild mid nasal septal deviation, apex of the right. CT/CT head/brain wo con IMPRESSION: No acute intracranial pathology.
--- NOTE | ~2021-07-06 | MR_ITS ---
EXAMINATION: MR BRAIN WITHOUT CONTRAST CLINICAL INFORMATION: New right-sided numbness. COMPARISON: CT head from 07/06/2021. TECHNIQUE: MRI of the brain was obtained using routine sequences without contrast. FINDINGS: No focal restricted diffusion is demonstrated to suggest acute or subacute cerebral ischemia. No evidence of acute or chronic hemorrhagic products on heme-sensitive imaging. Chronic lacunar infarcts of the bilateral caudate and lentiform nuclei as well as the bilateral cerebellar hemispheres. Scattered periventricular, deep white matter, and brainstem T2 FLAIR hyperintensities consistent with moderate underlying microangiopathy. The ventricles are normal in morphology and size. No abnormal mass effect. No midline shift. Normal appearance of the pituitary gland. Normal positioning of the cerebellar tonsils. Normal arterial and venous vascular flow voids are present. Normal, homogeneous marrow signal. Mild mucosal thickening of the paranasal sinuses. Mild rightward deviation of the nasal septum. No signal abnormalities within the mastoids. MR/MR head/brain wo con IMPRESSION: 1. No acute intracranial abnormalities. 2. Moderate underlying microangiopathy. Multifocal chronic lacunar infarcts of the deep nuclei and cerebellum.
[2021-07-06 08:47] VITALS: PULSE 99; RESP 18; TEMP 37.2; O2SAT 95; BMI 36.1
--- NOTE | 2021-07-06 11:03 | ED_ITS ---
HPI - Neuro Symptoms/Deficit General Chief Complaint: Neuro Symptoms/Deficit Stated Complaint: L arm numbness Time Seen by Provider: 07/06/21 11:03 Source: patient and historical interpreter Mode of arrival: ambulatory Limitations: no limitations History of Present Illness HPI Narrative: 60 y/o female with history of DM, COPD, HTN, HLD, hx UTI, fibromyalgia, depression/anxiety, GERD, hypothyroidism, PTSD, hx UTI, kidney stones, [place] who presents to the ER from home with 1 week of right-sided numbness. She reports on June 29 she had development of numbness in her left lower extremity and slowly moved up to her right arm and right face. It has been present for 1 week, she came here on 06/30 but the wait was too long so she went home. She reports when she walks the numbness improves and when she lays down it gets worse. She feels like her right side is heavy and a little bit weaker than the left. She has been on abx and prednisone for bronchitis and reports the numbness is worse with the prednisone. She denies any difficulty speaking, difficulty ambulating, difficulty swallowing. Denies any headaches or vision changes. She reports adequate glucose control at home. She has no numbness on the left side of her body. Onset (ago): week(s) (1) Location: right face, right arm and right leg History of same: No Severity: moderate Quality: numb Relieving factors: other (Walking) Exacerbating factors: rest Context: gradual onset Associated symptoms: cough Treatments Prior to Arrival: none Related Data Home Medications Medication Instructions Recorded Confirmed amlodipine 10 mg tablet 10 mg PO BEDTIME 11/20/19 07/06/21 blood sugar diagnostic #10 ea 11/20/19 03/08/21 blood-glucose meter #1 ea 11/20/19 03/08/21 calcium carbonate 600 mg-vitamin 1 tab PO BID 11/20/19 07/06/21 D3 10 mcg (400 unit) tablet cetirizine 10 mg tablet 10 mg PO BEDTIME 11/20/19 07/06/21 enalapril maleate 10 mg tablet 10 mg PO DAILY 11/20/19 07/06/21 lancets 33 gauge #100 ea 11/20/19 03/08/21 potassium chloride 20 mEq 20 meq PO BID 11/20/19 07/06/21 tablet,extended release(part/cryst) risperidone 0.5 mg tablet 0.5 mg PO BID 11/20/19 07/06/21 zolpidem 10 mg tablet 10 mg PO BEDTIME PRN 11/20/19 07/06/21 clonazepam 1 mg tablet (Klonopin) 1 mg PO DAILY 03/08/20 07/06/21 montelukast 10 mg tablet 10 mg PO BEDTIME 03/08/20 07/06/21 tramadol 50 mg tablet 50 mg PO BID PRN 03/08/20 07/06/21 acetaminophen 325 mg tablet 650 mg PO QID PRN tab 07/03/20 07/06/21 gabapentin 400 mg capsule 400 mg PO BEDTIME 06/27/21 07/06/21 buspirone 7.5 mg tablet 7.5 mg PO BID 06/29/21 07/06/21 carbamide peroxide 6.5 % ear drops 5 drp OTIC (EARS) BID 06/29/21 07/06/21 (Ear Drops (carbamide peroxide)) chlorhexidine gluconate 0.12 % 15 ml PO BID 06/29/21 07/06/21 mouthwash fluticasone 250 mcg-salmeterol 50 1 ea INHALATION BID 06/29/21 07/06/21 mcg/dose blistr powdr for inhalation ipratropium 20 mcg-albuterol 100 1 puff INHALATION QID 06/29/21 07/06/21 mcg/actuation mist for inhalation (Combivent Respimat) atorvastatin 80 mg tablet 80 mg PO BEDTIME 07/06/21 07/06/21 clonazepam 0.5 mg tablet 0.5 mg PO BEDTIME 07/06/21 07/06/21 clotrimazole 10 mg yanick 10 mg MUCOUS MEMBRANE 5XD 07/06/21 07/06/21 ipratropium 0.5 mg-albuterol 3 mg 3 ml INHALATION Q6H PRN 07/06/21 07/06/21 (2.5 mg base)/3 mL nebulization soln multivitamin-ferrous 1 tab PO DAILY 07/06/21 07/06/21 fumarate-folic acid 18 mg-400 mcg tablet (Certavite-Antioxidant) omeprazole 20 mg capsule,delayed 20 mg PO BID@0630,1630 07/06/21 07/06/21 release Previous Rx's Medication Instructions Recorded leg brace (Knee Support Brace) #2 ea 03/08/20 albuterol sulfate 90 mcg/actuation 2 puff INHALATION Q4-6H PRN #6.7 g 09/29/20 aerosol inhaler tiotropium bromide 18 mcg capsule 1 cap INHALATION DAILY 30 Days #30 01/18/21 with inhalation device (Spiriva inh with HandiHaler) sennosides 8.6 mg capsule (senna) 17.2 mg PO BEDTIME 30 Days #60 cap 03/19/21 levothyroxine 75 mcg tablet 75 mcg PO DAILY 90 Days #90 tab 04/16/21 Lactobacil rhamnosus GG 10 billion 1 cap PO DAILY 30 Days #30 cap 06/13/21 cell-inulin 200 mg sprinkle capsule ([facility]) bisacodyl 5 mg tablet,delayed 10 mg PO BEDTIME 30 Days #60 tab 06/18/21 release (Dulcolax (bisacodyl)) docusate sodium 100 mg capsule 100 mg PO BID 30 Days #60 cap 06/18/21 metoclopramide HCl 5 mg tablet 5 mg PO QIDACHS 30 Days #120 tab 06/18/21 (Reglan) plecanatide 3 mg tablet (Trulance) 3 mg PO DAILY 30 Days #30 tab 06/18/21 Allergies Allergy/AdvReac Type Severity Reaction Status Date / Time aspirin [Aspirin] Allergy Mild ITCHY Verified 06/29/21 08:44 THROAT azithromycin Allergy Unknown Unknown Verified 06/29/21 08:44 naproxen Allergy Unknown Unknown Verified 06/29/21 08:44 simvastatin Allergy Unknown Unknown Verified 06/29/21 08:44 Fish Containing Products Allergy Swelling Verified 06/29/21 08:44 onion [ONION] AdvReac Mild RED FACE Verified 06/29/21 08:44 Review of Systems Review of Systems: Constitutional: No Fever, No Chills ENT/Mouth: No sore throat, No Rhinorrhea, No Swallowing Difficulty Eyes: No Eye Pain, No Swelling, No Redness Cardiovascular: No Chest Pain, No SOB, No Orthopnea, No Edema Respiratory: No Cough, No Sputum, No Wheezing, No dyspnea Gastrointestinal: No Nausea, No Vomiting, No Diarrhea, No abdominal Pain Genitourinary: No Dysuria, No Urinary Frequency, No Hematuria Musculoskeletal: No joint pain, No Myalgias Skin: No Skin Lesions, No rash Neuro: + Weakness, + Numbness, No Dizziness, No Headache Psych: No Anxiety/Panic, No Depression Heme/Lymph: No Bruising, No Lymphadenopathy Endocrine: No Polyuria, No Polydipsia [facility] Past Medical History Medical History Allergic rhinitis Anxiety and depression Bronchitis Chest pain Cocaine abuse COPD exacerbation Diabetes DVT (deep venous thrombosis) Fibromyalgia HTN (hypertension) Hypothyroidism Low vitamin D level Menometrorrhagia Non-toxic multinodular goiter PTSD (post-traumatic stress disorder) Renal calculi Spondylosis of cervical region without myelopathy or radiculopathy UTI (urinary tract infection) Vertigo Surgical History H/O colonoscopy with polypectomy History of esophagogastroduodenoscopy (EGD) History of hysterectomy History of lithotripsy History of selective injection of anesthetic agent around lumbar nerve root Hx of right breast biopsy Family History Family History Father No problems noted. Mother Myocardial infarction CVA (cerebral vascular accident) Social History Social History Household Members: None Alcohol intake: never Patient Tobacco Use Status: Never used Tobacco Advance Directives: Yes Advance Directives Information Provided: Yes Advance Directives on File: No Current occupational status: disabled Physical Exam Vital Signs: Vital Signs: Last Vital Signs Temp 98.9 F 07/06/21 08:47 Pulse 65 07/06/21 18:00 Resp 18 07/06/21 18:00 BP 129/78 07/06/21 18:00 Pulse Ox 96 07/06/21 18:00 BMI result Body Mass Index 36.1 Appearance: Alert. Oriented X3. No acute distress. Eyes: Pupils equal, round and reactive to light. ENT: Pharynx normal. Neck: Normal inspection. Neck supple. CVS: Normal heart rate and rhythm. Pulses normal. Respiratory: No respiratory distress. Breath sounds normal. Abdomen: Obese, Soft and nontender. +BS x4 Skin: Skin warm and dry. Normal skin color. Normal skin turgor. No rashes. Extremities: No lower extremity edema. No calf tenderness. Neuro: Oriented X 3. Strength is equal and symmetrical throughout. + sensory deficit of the right lower extremity and right upper extremity. CN II-XII intact. question of a mild left facial droops. speech and cognition are normal. Gait is normal. Course Course Course Narrative: 6-year-old female with history of HTN, HLD, COPD, GERD, hypothyroidism, fibromyalgia, osteoarthritis, [place], kidney stones, seasonal allergies, PTSD, jill betes who presents to the ER with 1 week of right-sided numbness. She reports subjective weakness and heaviness as well. Examination reveals mild sensory loss of the right extremities and right side of her face. She has no weakness. NIH is 2. Will get CT scan and metabolic workup. Numbness and not in the typical glove and stocking distribution of diabetic neuropathy. Concern for possible CVA. May need admission, dispo pending results. Reevaluation(s) Reevaluation #1: CT head is negative. Will get MRI of the brain for further evaluation. Reevaluation #2: MRI of the brain does not show any acute findings, moderate microangiopathy with multifocal chronic lacunar infarcts seen throughout the cerebellum and deep nuclei. Patient relieved to hear the results of her MRI without acute findings. At this time she is stable for discharge home with plan to follow-up with her primary care doctor early next week. Patient agrees with plan. MDM - Neuro Symptoms/Deficit Medical Records Attestation: I reviewed the patient's medical records. Lab Data Attestation: I reviewed the patient's lab results. Result diagrams: 07/06/21 11:19 07/06/21 11:19 Labs: Lab Results 07/06/21 07/06/21 07/06/21 Range/Units 11:19 11:19 11:19 WBC 6.2 (4.8-10.8) X10*3/uL RBC 4.50 (4.20-5.50) X10*6/uL Hgb 14.2 (12.0-16.0) g/dl Hct 43.1 (37.0-47.0) % MCV 95.8 (80.0-98.0) fL MCH 31.6 (27.0-33.0) pg MCHC 32.9 (31.0-35.0) g/dl RDW 13.3 (11.0-16.0) % Plt Count 280 (160-400) X10*3/uL MPV 9.5 (9.4-12.3) fL Immature Gran % (Auto) 0.2 (0.0-0.4) % Neut % (Auto) 49.7 (45-73) % Lymph % (Auto) 39.9 (20-40) % Becker % (Auto) 7.6 (2-11) % Eos % (Auto) 2.1 (0-4) % Baso % (Auto) 0.5 (0-2) % Lymph # (Auto) 2.5 (1.2-4.9) X10*3/uL Becker # (Auto) 0.5 (0.1-1.2) X10*3/uL Eos # (Auto) 0.1 (0.0-0.4) X10*3/uL Baso # (Auto) 0.0 (0.0-0.2) X10*3/uL Abs Immat Gran (auto) 0.01 (0.00-0.03) X10*3/uL Absolute Neuts (auto) 3.1 (2.0-8.3) x10*3/uL Absolute Nucleated RBC 0.000 (0.0-0.012) X10*3/uL Nucleated RBC % (auto) 0.0 (0.0-0.2) /100WBC PT (9.9-13.0) SEC INR (0.9-1.1) APTT (24.1-38.0) SEC Sodium 142 (135-145) mmol/L Potassium 4.4 (3.3-5.1) mmol/L Chloride 106 (96-108) mmol/L Carbon Dioxide 30 H (22-29) mmol/L Anion Gap 10 L (12-20) BUN 15 (9-16) mg/dL Creatinine 0.87 (0.5-1.4) mg/dL Estim Creat Clear Calc 77.0 Estimated GFR > 60 POC Glucose (60-115) mg/dL Random Glucose 132 H (60-115) mg/dL Calcium 9.7 (8.4-10.2) mg/dL Magnesium 2.3 (1.6-2.6) mg/dL Total Bilirubin 0.4 (0.0-1.0) mg/dL Direct Bilirubin 0.2 (0.0-0.5) mg/dL AST 22 (5-31) U/L ALT 23 (0-31) U/L Alkaline Phosphatase 95 (39-117) U/L Total Protein 7.2 (6.5-8.0) g/dL Albumin 4.3 (3.5-5.0) g/dL TSH (0.32-4.0) uIU/mL Urine Color Urine Appearance Urine pH (5.0-8.0) Ur Specific [place] (1.005-1.025) Urine Protein (NEG-TRACE) MG/DL Urine Glucose (UA) (NEG) MG/DL Urine Ketones (NEG) MG/DL Urine Blood (NEG) Urine Nitrite (NEG) Ur Leukocyte Esterase (NEG) Urine RBC (0) /HPF Urine WBC (0-4) /HPF Ur Squamous Epith Cells /LPF Urine Bacteria /LPF COVID-19 (DONALD) Negative (Negative) COVID-19 Clin Com See Note 07/06/21 07/06/21 07/06/21 Range/Units 11:19 11:19 12:47 WBC (4.8-10.8) X10*3/uL RBC (4.20-5.50) X10*6/uL Hgb (12.0-16.0) g/dl Hct (37.0-47.0) % MCV (80.0-98.0) fL MCH (27.0-33.0) pg MCHC (31.0-35.0) g/dl RDW (11.0-16.0) % Plt Count (160-400) X10*3/uL MPV (9.4-12.3) fL Immature Gran % (Auto) (0.0-0.4) % Neut % (Auto) (45-73) % Lymph % (Auto) (20-40) % Becker % (Auto) (2-11) % Eos % (Auto) (0-4) % Baso % (Auto) (0-2) % Lymph # (Auto) (1.2-4.9) X10*3/uL Becker # (Auto) (0.1-1.2) X10*3/uL Eos # (Auto) (0.0-0.4) X10*3/uL Baso # (Auto) (0.0-0.2) X10*3/uL Abs Immat Gran (auto) (0.00-0.03) X10*3/uL Absolute Neuts (auto) (2.0-8.3) x10*3/uL Absolute Nucleated RBC (0.0-0.012) X10*3/uL Nucleated RBC % (auto) (0.0-0.2) /100WBC PT 10.6 (9.9-13.0) SEC INR 0.9 (0.9-1.1) APTT 33.9 (24.1-38.0) SEC Sodium (135-145) mmol/L Potassium (3.3-5.1) mmol/L Chloride (96-108) mmol/L Carbon Dioxide (22-29) mmol/L Anion Gap (12-20) BUN (9-16) mg/dL Creatinine (0.5-1.4) mg/dL Estim Creat Clear Calc Estimated GFR POC Glucose 131 H (60-115) mg/dL Random Glucose (60-115) mg/dL Calcium (8.4-10.2) mg/dL Magnesium (1.6-2.6) mg/dL Total Bilirubin (0.0-1.0) mg/dL Direct Bilirubin (0.0-0.5) mg/dL AST (5-31) U/L ALT (0-31) U/L Alkaline Phosphatase (39-117) U/L Total Protein (6.5-8.0) g/dL Albumin (3.5-5.0) g/dL TSH 3.32 (0.32-4.0) uIU/mL Urine Color Urine Appearance Urine pH (5.0-8.0) Ur Specific [place] (1.005-1.025) Urine Protein (NEG-TRACE) MG/DL Urine Glucose (UA) (NEG) MG/DL Urine Ketones (NEG) MG/DL Urine Blood (NEG) Urine Nitrite (NEG) Ur Leukocyte Esterase (NEG) Urine RBC (0) /HPF Urine WBC (0-4) /HPF Ur Squamous Epith Cells /LPF Urine Bacteria /LPF COVID-19 (DONALD) (Negative) COVID-19 Clin Com 07/06/21 Range/Units 16:29 WBC (4.8-10.8) X10*3/uL RBC (4.20-5.50) X10*6/uL Hgb (12.0-16.0) g/dl Hct (37.0-47.0) % MCV (80.0-98.0) fL MCH (27.0-33.0) pg MCHC (31.0-35.0) g/dl RDW (11.0-16.0) % Plt Count (160-400) X10*3/uL MPV (9.4-12.3) fL Immature Gran % (Auto) (0.0-0.4) % Neut % (Auto) (45-73) % Lymph % (Auto) (20-40) % Becker % (Auto) (2-11) % Eos % (Auto) (0-4) % Baso % (Auto) (0-2) % Lymph # (Auto) (1.2-4.9) X10*3/uL Becker # (Auto) (0.1-1.2) X10*3/uL Eos # (Auto) (0.0-0.4) X10*3/uL Baso # (Auto) (0.0-0.2) X10*3/uL Abs Immat Gran (auto) (0.00-0.03) X10*3/uL Absolute Neuts (auto) (2.0-8.3) x10*3/uL Absolute Nucleated RBC (0.0-0.012) X10*3/uL Nucleated RBC % (auto) (0.0-0.2) /100WBC PT (9.9-13.0) SEC INR (0.9-1.1) APTT (24.1-38.0) SEC Sodium (135-145) mmol/L Potassium (3.3-5.1) mmol/L Chloride (96-108) mmol/L Carbon Dioxide (22-29) mmol/L Anion Gap (12-20) BUN (9-16) mg/dL Creatinine (0.5-1.4) mg/dL Estim Creat Clear Calc Estimated GFR POC Glucose (60-115) mg/dL Random Glucose (60-115) mg/dL Calcium (8.4-10.2) mg/dL Magnesium (1.6-2.6) mg/dL Total Bilirubin (0.0-1.0) mg/dL Direct Bilirubin (0.0-0.5) mg/dL AST (5-31) U/L ALT (0-31) U/L Alkaline Phosphatase (39-117) U/L Total Protein (6.5-8.0) g/dL Albumin (3.5-5.0) g/dL TSH (0.32-4.0) uIU/mL Urine Color YELLOW Urine Appearance CLEAR Urine pH 7.0 (5.0-8.0) Ur Specific [place] 1.010 (1.005-1.025) Urine Protein NEG (NEG-TRACE) MG/DL Urine Glucose (UA) 100 H (NEG) MG/DL Urine Ketones 5 (NEG) MG/DL Urine Blood NEG (NEG) Urine Nitrite NEG (NEG) Ur Leukocyte Esterase TRACE H (NEG) Urine RBC 0 (0) /HPF Urine WBC 0-2 (0-4) /HPF Ur Squamous Epith Cells TRACE /LPF Urine Bacteria TRACE /LPF COVID-19 (DONALD) (Negative) COVID-19 Clin Com ECG Data Attestation: I personally reviewed and interpreted this ECG as follows: ECG interpretation date: 07/06/21 Prior ECG tracings: available for review Interpretation: Normal sinus rhythm with first-degree AV block, heart rate 70 beats per minute, NM interval prolonged to AMS, left axis deviation, normal QTC, no ST segment elevations or depressions, no change from prior last week. NIH Stroke Scale Internal: Initial- Upon Arrival Level of Consciousness: Alert Level of Consciousness Questions: Answers both questions correctly Level of Consciousness Commands: Performs both tasks correctly Best Gaze: Normal Visual: No visual loss Facial Palsy: Minor paralyis Motor Arm (Right): No drift Motor Arm (Left): No drift Motor Leg (Right): No drift Motor Leg (Left): No drift Limb Ataxia: Absent Sensory: Mild to moderate sensory loss Best Language: No aphasia Dysarthia: Normal Extinction and Inattention: No abnormality Score: 2 Critical Care Time Critical Care Time Critical Care Time: Yes Total Critical Care Time: 35 Attestation: I have personally provided critical care time exclusive of time spent on separately billable procedures. Time includes review of lab data, radiology results, frequent bedside reassessment, and monitoring for potential decompensation. Intervention performed as documented. Discharge Plan Discharge Clinical Impression: Numbness on right side Patient Disposition: Home, Self-Care Instructions: Paresthesia (ED) Additional Instructions: Your CT scans and MRI scans did not show any evidence of acute strokes. Recommend tight blood sugar control at home. Follow up with your doctor next week. If you develop new or worsening symptoms call 911 or come back to the ER for further evaluation. Prescriptions: No Action levothyroxine 75 mcg tablet 75 mcg PO DAILY 90 Days Qty: 90 1RF [facility] 10 billion cell -200 mg capsule, sprinkle 1 cap PO DAILY 30 Days Qty: 30 6RF gabapentin 400 mg capsule 400 mg PO BEDTIME 0RF albuterol sulfate 90 mcg/actuation HFA aerosol inhaler 2 puff inhalation Q4-6H PRN (Reason: shortness of breath or wheezing) Qty: 6.7 0RF ipratropium-albuterol [DuoNeb] 0.5 mg-3 mg(2.5 mg base)/3 mL Solution For Nebulization 3 ml INHALATION Q6H PRN (Reason: Respiratory Distress) 0RF atorvastatin 80 mg tablet 80 mg PO BEDTIME 0RF omeprazole 20 mg capsule,delayed release(DR/EC) 20 mg PO BID@0630,1630 0RF Certavite-Antioxidant 18-400 mg-mcg Tablet 1 tab PO DAILY 0RF clonazepam 0.5 mg Tablet 0.5 mg PO BEDTIME 0RF Rx Instructions: administer 30 minutes before bedtime clotrimazole 10 mg Yanick 10 mg MUCOUS MEMBRANE 5XD 0RF Rx Instructions: USE WHEN NEEDED FOR ORAL FUNGAL INFECTION tramadol 50 mg tablet 50 mg PO BID PRN (Reason: Pain) 0RF montelukast 10 mg tablet 10 mg PO BEDTIME 0RF clonazepam [Klonopin] 1 mg tablet 1 mg PO DAILY 0RF Rx Instructions: administer 30 minutes before bedtime (DME) Knee Support Brace Misc See Rx Instructions .ROUTE .MEDSUPPLY Qty: 2 0RF Rx Instructions: As directed senna 8.6 mg capsule 17.2 mg PO BEDTIME 30 Days Qty: 60 6RF zolpidem 10 mg tablet 10 mg PO BEDTIME PRN (Reason: Insomnia) 0RF risperidone 0.5 mg tablet 0.5 mg PO BID 0RF amlodipine 10 mg tablet 10 mg PO BEDTIME 0RF enalapril maleate 10 mg tablet 10 mg PO DAILY 0RF (DME) lancets 33 gauge misc See Rx Instructions ea Not Applicable DAILY Qty: 100 0RF Rx Instructions: As directed (DME) FreeStyle Lite Strips Strip See Rx Instructions ea Not Applicable DAILY Qty: 10 0RF Rx Instructions: As directed calcium carbonate-vitamin D3 600 mg(1,500mg) -400 unit tablet 1 tab PO BID 0RF potassium chloride 20 mEq tablet,ER particles/crystals 20 meq PO BID 0RF cetirizine 10 mg tablet 10 mg PO BEDTIME 0RF (DME) blood-glucose meter Kit See Rx Instructions ea .ROUTE DAILY Qty: 1 0RF Rx Instructions: As directed acetaminophen 325 mg tablet 650 mg PO QID PRN (Reason: FEVER/PAIN) 0RF buspirone 7.5 mg tablet 7.5 mg PO BID 0RF Combivent Respimat 20-100 mcg/actuation mist 1 puff inhalation QID 0RF fluticasone propion-salmeterol 250-50 mcg/dose blister with device 1 ea inhalation BID 0RF Ear Drops (carbamide peroxide) 6.5 % drops 5 drp otic (ears) BID 0RF chlorhexidine gluconate 0.12 % mouthwash 15 ml PO BID 0RF Spiriva with HandiHaler 18 mcg capsule, w/inhalation device 1 cap inhalation DAILY 30 Days Qty: 30 6RF Rx Instructions: puncture 1 cap using device; one dose = 2 inhalations Trulance 3 mg tablet 3 mg PO DAILY 30 Days Qty: 30 6RF Rx Instructions: Take one tablet by mouth once a day bisacodyl [Dulcolax (bisacodyl)] 5 mg tablet,delayed release (DR/EC) 10 mg PO BEDTIME 30 Days Qty: 60 6RF metoclopramide HCl [Reglan] 5 mg tablet 5 mg PO QIDACHS 30 Days Qty: 120 6RF Rx Instructions: Provider aware of possible interaction and pt is being monitored docusate sodium 100 mg capsule 100 mg PO BID 30 Days Qty: 60 6RF Referrals: Sariah Vickers, CAD APPLICATION SUPPORT SPECIALIST [Primary Care Provider] - (right sided paresthesias )
[2021-07-06 11:24] LABS: MANUAL DIFF FLAG NO
[2021-07-06 11:27] LABS: Basophils Percent Auto 0.5 % (0-2); Eosinophils Absolute Auto 0.1 X10*3/uL (0.0-0.4); Eosinophils Percent Auto 2.1 % (0-4); Hematocrit 43.1 % (37.0-47.0); Hemoglobin 14.2 g/dl (12.0-16.0); Imm Gran Abs Auto 0.01 X10*3/uL (0.00-0.03); Imm Gran Pct Auto 0.2 % (0.0-0.4); Lymphocytes Absolute Auto 2.5 X10*3/uL (1.2-4.9); Lymphocytes Percent Auto 39.9 % (20-40); Mean Corpuscular HGB Conc 32.9 g/dl (31.0-35.0); Mean Corpuscular Hemoglobin 31.6 pg (27.0-33.0); Mean Corpuscular Volume 95.8 fL (80.0-98.0); Mean Platelet Volume 9.5 fL (9.4-12.3); Monocytes Absolute Auto 0.5 X10*3/uL (0.1-1.2); Monocytes Percent Auto 7.6 % (2-11); Neutrophils Absolute Auto 3.1 x10*3/uL (2.0-8.3); Neutrophils Percent Auto 49.7 % (45-73); Platelet Count 280 X10*3/uL (160-400); Red Cell Distribution Width 13.3 % (11.0-16.0); White Blood Count 6.2 X10*3/uL (4.8-10.8)
[2021-07-06 11:33] LABS: INTERNATIONAL NORM RATIO 0.9 (0.9-1.1); Prothrombin Time 10.6 SEC (9.9-13.0)
[2021-07-06 11:35] LABS: Partial Thromboplastin Time 33.9 SEC (24.1-38.0)
[2021-07-06 11:45] LABS: Alanine Aminotransferase 23 U/L (0-31); Albumin Level 4.3 g/dL (3.5-5.0); Alkaline Phosphatase 95 U/L (39-117); Anion Gap 10 (12-20); Aspartate Amino Transferase 22 U/L (5-31); Bilirubin Direct 0.2 mg/dL (0.0-0.5); Bilirubin Total 0.4 mg/dL (0.0-1.0); Blood Urea Nitrogen 15 mg/dL (9-16); Calcium 9.7 mg/dL (8.4-10.2); Carbon Dioxide 30 mmol/L (22-29); Chloride 106 mmol/L (96-108); Estimated Glomerular Filt Rate > 60; Glucose Random 132 mg/dL (60-115); Magnesium 2.3 mg/dL (1.6-2.6); Potassium 4.4 mmol/L (3.3-5.1); Sodium 142 mmol/L (135-145); Total Protein 7.2 g/dL (6.5-8.0)
[2021-07-06 11:54] LABS: COVID-19 Test Negative (Negative)
[2021-07-06 12:03] LABS: TSH reflex Free T4 3.32 uIU/mL (0.32-4.0)
[2021-07-06 12:10] VITALS: BP 132/80; PULSE 71; RESP 13; O2SAT 98
[2021-07-06 12:51] LABS: Glucose, Whole Blood 131 mg/dL (60-115)
[2021-07-06 15:17] VITALS: BP 123/71; PULSE 64; RESP 22; O2SAT 96
--- NOTE | 2021-07-06 15:21 | PC.NURSE ---
pt a&ox3, vss, denies any pain at this time, requesting water, unable to obtain urine sample. no new orders at this time.
--- NOTE | 2021-07-06 15:24 | PHA.MEDREC ---
MED REC COMPLETE Pharmacy Consult ? Medication Reconciliation Pharmacy has completed the medication reconciliation.
--- NOTE | 2021-07-06 15:54 | PC.NURSE ---
spoke w MRI, pt should be heading to MRI around 1700
[2021-07-06 16:35] LABS: Appearance Urine CLEAR; Color Urine YELLOW; Glucose Urine UA 100 MG/DL (NEG); Leukocyte Esterase Urine TRACE (NEG); Nitrite Urine NEG (NEG); Urine Blood NEG (NEG); Urine Ketones 5 MG/DL (NEG); Urine Protein NEG (NEG-TRACE)
[2021-07-06 16:46] LABS: Bacteria Urine TRACE /LPF; RBC Urine 0 /HPF (0); Squamous Epithelial Cell Urine TRACE /LPF; WBC Urine 0-2 /HPF (0-4)
[2021-07-06 18:00] VITALS: BP 129/78; PULSE 65; RESP 18; O2SAT 96
== END 2021-07-06 19:33 | disposition home or self-care (01) ==
PROVIDERS: Physician Assistant; Emergency Provider Emergency Medicine Emergency Medical Services; PCP Nurse Practitioner Primary Care
DX: R20.0 Anesthesia of skin (principal); R29.702 NIHSS score 2; I10 Essential (primary) hypertension; E11.9 Type 2 diabetes mellitus without complications; J44.9 Chronic obstructive pulmonary disease, unspecified; Z86.718 Personal history of other venous thrombosis and embolism; Z79.899 Other long term (current) drug therapy; Z20.822 Contact with and (suspected) exposure to COVID-19
CPT/HCPCS: 36415; 70450; 70551; 80048; 80076; 81001; 82947; 83735; 84443; 85025; 85610; 85730; 87635; 93005; 99284; 99291

== ENCOUNTER → 2021-07-13 13:10 | Outpatient (BNVA) | payer OTHER, SELFPAY | PROVIDERS: PCP Nurse Practitioner Primary Care; Visit Provider Registered Nurse Diabetes Educator | DX: E13.9 Other specified diabetes mellitus without complications (principal) | CPT/HCPCS: 99211 ==

== ENCOUNTER 2021-07-13 16:48 | Outpatient (REF) | payer OTHER, SELFPAY ==
--- NOTE | ~2021-07-13 | US_ITS ---
EXAMINATION: US VENOUS ULTRASOUND WITH DOPPLER LOWER EXTREMITY, RIGHT CLINICAL INFORMATION: Pain COMPARISON: Previous exam October 2019 TECHNIQUE: Ultrasound of the deep veins is performed from the hip to the calf with compression sonography and color and pulse Doppler assessment. Spectral analysis with color-flow imaging is performed. FINDINGS: There is normal venous compression and respiratory variation and augmented flow. The visualized common femoral vein, superficial femoral vein, profunda femoral vein, popliteal vein, and the trifurcation region shows no evidence of deep venous thrombosis. There is no significant popliteal fossa cyst. US/US venous duplex LE RT IMPRESSION: No DVT demonstrated in the right lower extremity.
== END 2021-07-13 16:49 | disposition home or self-care (01) ==
LOC: HO.US 16:48
PROVIDERS: PCP Nurse Practitioner Primary Care; Visit Provider Nurse Practitioner Primary Care
DX: I80.01 Phlebitis and thrombophlebitis of superficial vessels of right lower extremity (principal); Z86.718 Personal history of other venous thrombosis and embolism
CPT/HCPCS: 93971

== ENCOUNTER 2021-07-19 10:36 | Outpatient (REF) | payer OTHER, SELFPAY | END 2021-07-19 10:37 | disposition home or self-care (01) | LOC: HO.MDS 10:36 | PROVIDERS: Visit Provider Internal Medicine Pulmonary Disease | DX: J45.50 Severe persistent asthma, uncomplicated (principal) | CPT/HCPCS: 96372; J2357 ==

== ENCOUNTER 2021-07-24 07:37 | Outpatient (REF) | payer OTHER, SELFPAY ==
[2021-07-24 08:37] LABS: Cholesterol 181 mg/dL; HDL Cholesterol 63 mg/dL; LDL Cholesterol Calculated 91 mg/dl; Triglycerides 138 mg/dL
== END 2021-07-24 07:38 | disposition home or self-care (01) ==
LOC: HO.LAB 07:37
PROVIDERS: PCP Nurse Practitioner Primary Care; Visit Provider Internal Medicine Endocrinology, Diabetes & Metabolism
DX: E78.00 Pure hypercholesterolemia, unspecified (principal)
CPT/HCPCS: 36415; 80061

== ENCOUNTER 2021-07-25 07:40 | Outpatient (REF) | payer OTHER, SELFPAY ==
--- NOTE | ~2021-07-25 | XR_ITS ---
EXAMINATION: XR CHEST 2 VIEWS CLINICAL INFORMATION: COPD. COMPARISON: Prior chest radiographs, most recently 06/30/2021. TECHNIQUE: Frontal and lateral views of the chest were obtained. FINDINGS: The heart, great vessels, pulmonary vasculature and mediastinum are normal. The thoracic aorta is tortuous and shows mild atherosclerosis. The lungs show no focal infiltrate, effusion or pneumothorax. There is no acute osseous abnormality. XR/XR chest 2V IMPRESSION: No active cardiopulmonary disease.
== END 2021-07-25 07:41 | disposition home or self-care (01) ==
LOC: HO.XRAY 07:40
PROVIDERS: Absent Provider Nurse Practitioner Primary Care; PCP Nurse Practitioner Primary Care; Visit Provider Nurse Practitioner Family
DX: J44.1 Chronic obstructive pulmonary disease with (acute) exacerbation (principal); Z20.822 Contact with and (suspected) exposure to COVID-19
CPT/HCPCS: 71046

== ENCOUNTER → 2021-07-26 12:31 | Outpatient (BNVA) | payer OTHER, SELFPAY | PROVIDERS: PCP Nurse Practitioner Primary Care; Visit Provider Internal Medicine Endocrinology, Diabetes & Metabolism | DX: E03.9 Hypothyroidism, unspecified (principal); E04.2 Nontoxic multinodular goiter; E11.65 Type 2 diabetes mellitus with hyperglycemia | CPT/HCPCS: 82947; 83036; 99212 ==

== ENCOUNTER 2021-07-29 11:15 | Emergency (ER) | payer OTHER, SELFPAY ==
[2021-07-29 11:24] VITALS: BP 157/76; PULSE 84; RESP 22; TEMP 36.6; O2SAT 97; BMI 36.6
--- NOTE | 2021-07-29 11:41 | ED.GENADULT ---
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 Patient states that she has an ongoing issue with this back pain that radiates into her right leg. Patient denies any dizziness, lightheadedness, abdominal pain, nausea, vomiting, fever, chills, blurry vision, double vision, loss of vision, chest pain, difficulty breathing, shortness of breath, night sweats, pain with urination, increased urinary frequency, increased urinary urgency, blood in her urine or stool, syncope or a near syncopal episode, recent trauma or falls, bowel incontinence, bladder incontinence, bowel retention, bladder retention, or any other complaints at this time. Onset (ago): day(s) Location: back Radiation: extremity Severity: mild Severity scale (1-10): 2 Quality: dull Pain Consistency: constant Relieving factors: none Exacerbating factors: movement Associated symptoms: denies other symptoms Treatments prior to arrival: none Related Data Home Medications Medication Instructions Recorded Confirmed amlodipine 10 mg tablet 10 mg PO BEDTIME 11/20/19 07/06/21 blood sugar diagnostic #10 ea 11/20/19 03/08/21 blood-glucose meter #1 ea 11/20/19 03/08/21 calcium carbonate 600 mg-vitamin 1 tab PO BID 11/20/19 07/06/21 D3 10 mcg (400 unit) tablet cetirizine 10 mg tablet 10 mg PO BEDTIME 11/20/19 07/06/21 enalapril maleate 10 mg tablet 10 mg PO DAILY 11/20/19 07/06/21 lancets 33 gauge #100 ea 11/20/19 03/08/21 potassium chloride 20 mEq 20 meq PO BID 11/20/19 07/06/21 tablet,extended release(part/cryst) risperidone 0.5 mg tablet 0.5 mg PO BID 11/20/19 07/06/21 zolpidem 10 mg tablet 10 mg PO BEDTIME PRN Insomnia 11/20/19 07/06/21 clonazepam 1 mg tablet (Klonopin) 1 mg PO DAILY 03/08/20 07/06/21 montelukast 10 mg tablet 10 mg PO BEDTIME 03/08/20 07/06/21 gabapentin 400 mg capsule 400 mg PO BEDTIME 06/27/21 07/06/21 buspirone 7.5 mg tablet 7.5 mg PO BID 06/29/21 07/06/21 carbamide peroxide 6.5 % ear drops 5 drp otic (ears) BID 06/29/21 07/06/21 (Ear Drops (carbamide peroxide)) chlorhexidine gluconate 0.12 % 15 ml PO BID 06/29/21 07/06/21 mouthwash fluticasone 250 mcg-salmeterol 50 1 ea inhalation BID 06/29/21 07/06/21 mcg/dose blistr powdr for inhalation ipratropium 20 mcg-albuterol 100 1 puff inhalation QID 06/29/21 07/06/21 mcg/actuation mist for inhalation (Combivent Respimat) atorvastatin 80 mg tablet 80 mg PO BEDTIME 07/06/21 07/06/21 clonazepam 0.5 mg tablet 0.5 mg PO BEDTIME 07/06/21 07/06/21 clotrimazole 10 mg yanick 10 mg mucous membrane 5XD 07/06/21 07/06/21 ipratropium 0.5 mg-albuterol 3 mg 3 ml inhalation Q6H PRN 07/06/21 07/06/21 (2.5 mg base)/3 mL nebulization Respiratory Distress soln multivitamin-ferrous 1 tab PO DAILY 07/06/21 07/06/21 fumarate-folic acid 18 mg-400 mcg tablet (Certavite-Antioxidant) omeprazole 20 mg capsule,delayed 20 mg PO BID@0630,1630 07/06/21 07/06/21 release prednisone 20 mg tablet 20 mg PO BID 07/26/21 Previous Rx's Medication Instructions Recorded leg brace (Knee Support Brace) #2 ea 03/08/20 albuterol sulfate 90 mcg/actuation 2 puff inhalation Q4-6H PRN 09/29/20 aerosol inhaler shortness of breath or wheezing #6.7 grams tiotropium bromide 18 mcg capsule 1 cap inhalation DAILY 30 days #30 01/18/21 with inhalation device (Spiriva inhalations with HandiHaler) sennosides 8.6 mg capsule (senna) 17.2 mg PO BEDTIME constipation 30 03/19/21 days #60 caps levothyroxine 75 mcg tablet 75 mcg PO DAILY 90 days #90 tabs 04/16/21 Lactobacil rhamnosus GG 10 billion 1 cap PO DAILY 30 days #30 caps 06/13/21 cell-inulin 200 mg sprinkle capsule ([facility] What's in My Handbag [facility]) bisacodyl 5 mg tablet,delayed 10 mg PO BEDTIME 30 days #60 tabs 06/18/21 release (Dulcolax (bisacodyl)) docusate sodium 100 mg capsule 100 mg PO BID 30 days #60 caps 06/18/21 metoclopramide HCl 5 mg tablet 5 mg PO QIDACHS 30 days #120 tabs 06/18/21 (Reglan) plecanatide 3 mg tablet (Trulance) 3 mg PO DAILY 30 days #30 tabs 06/18/21 dulaglutide 1.5 mg/0.5 mL 1.5 mg (0.5 mL) subcut QWEEK #2 mL 07/26/21 subcutaneous pen injector ([facility]) cyclobenzaprine 10 mg tablet 10 mg PO TID PRN sciatic nerve 07/29/21 pain 7 days #21 tabs Allergies Allergy/AdvReac Type Severity Reaction Status Date / Time aspirin [Aspirin] Allergy Mild ITCHY Verified 07/26/21 12:46 THROAT azithromycin Allergy Unknown Unknown Verified 07/26/21 12:46 naproxen Allergy Unknown Unknown Verified 07/26/21 12:46 simvastatin Allergy Unknown Unknown Verified 07/26/21 12:46 Fish Containing Products Allergy Swelling Verified 07/26/21 12:46 onion [ONION] AdvReac Mild RED FACE Verified 07/26/21 12:46 Review of Systems Constitutional: Constitutional: Reports no additional constitutional complaints, Denies chills, Denies fever(s) and Denies night sweats Eyes: Eyes: Reports no additional eye complaints, Denies blurry vision, Denies change in vision, Denies diplopia, Denies eye discharge, Denies loss of vision and Denies eye pain ENT: Denies dizziness Cardiovascular: Cardiovascular: Reports no additional cardiovascular complaints, Denies chest pain, Denies lightheadedness, Denies Loss of Consciousness and Denies dyspnea Respiratory: Respiratory: Reports no additional respiratory complaints and Denies dyspnea Gastrointestinal: Gastrointestinal: Reports no additional gastrointestinal complaints, Denies abdominal pain, Denies melena, Denies hematochezia, Denies change in bowel habits and Denies change in stool character Genitourinary: Genitourinary: Denies hematuria, Denies urinary frequency, Denies dysuria, Denies urinary incontinence, Denies urinary hesitancy and Denies urinary urgency Musculoskeletal: Musculoskeletal: Reports no additional musculoskeletal complaints, Reports back pain, Denies numbness and Denies tingling Neurologic: Denies dizziness, Denies loss of vision, Denies numbness and Denies tingling Psychiatric: Psychiatric: Reports no additional psychiatric complaints Endocrine: Endocrine: Reports no additional endocrine complaints Hematologic/Lymphatic: Hematologic/Lymphatic: Reports no additional hematologic/lymphatic complaints Allergic/Immunologic: Allergic/Immunologic: Reports no additional allergic/immunologic complaints [facility] Past Medical History Attestation statement: The following information was validated with the patient. Source: old records reviewed Medical History Allergic rhinitis Anxiety and depression Bronchitis Chest pain Cocaine abuse COPD exacerbation Diabetes DVT (deep venous thrombosis) Fibromyalgia HTN (hypertension) Hypothyroidism Low vitamin D level Menometrorrhagia Non-toxic multinodular goiter PTSD (post-traumatic stress disorder) Renal calculi Spondylosis of cervical region without myelopathy or radiculopathy UTI (urinary tract infection) Vertigo Surgical History H/O colonoscopy with polypectomy History of esophagogastroduodenoscopy (EGD) History of hysterectomy History of lithotripsy History of selective injection of anesthetic agent around lumbar nerve root Hx of right breast biopsy Family History Family History Father No problems noted. Mother Myocardial infarction CVA (cerebral vascular accident) Social History Social History Household Members: None Alcohol intake: never Patient Tobacco Use Status: Never used Tobacco Advance Directives: No Advance Directives Information Provided: No Current occupational status: disabled Physical Exam ED Vital Signs: Vital Signs - 24 hr 07/29/21 11:24 Temperature 97.8 F Pulse Rate 84 Respiratory Rate 22 H Blood Pressure 157/76 H Pulse Oximetry 97 Oxygen Delivery Method Room Air BMI result Body Mass Index 36.6 Const General: cooperative, no acute distress, alert and awake Nutritional Appearance: well nourished Orientation/consciousness: patient oriented x3 Limitations: no limitations HENMT Head: Yes normal to inspection and Yes atraumatic Ears: hearing grossly normal bilaterally and external ears normal General nose exam: Normal external nose present, no nasal discharge noted and no epistaxis Face and sinus: Yes normal facial exam, No abrasion and No laceration Mouth: Normal oral and palatal mucosa present, no drooling and no muffled voice Eyes General: appearance normal, both eyes and all related structures Periorbital: periorbital findings normal Eyelids: Yes eyelids normal Conjunctivae: conjunctivae normal Pupils: Equal, round and reactive pupils present EOM: EOMs intact bilaterally Neck Neck: Yes normal visual inspection, Yes full ROM and Yes no lymphadenopathy Chest Chest palpation & inspection: normal inspection of the chest Resp Effort & Inspection: normal respiratory effort and able to speak in complete sentences Auscultation: clear to auscultation bilaterally Cardio Rate: regular rate Rhythm: regular rhythm GI Inspection: Yes normal to inspection General: Yes no CVA tenderness Back/Spine/Pelvis Back: no CVA tenderness Cervical Spine: normal cervical lordosis and cervical ROM normal Thoracic/Lumbar Spine: thoracic and lumbar spine normal to inspection and thoraco-lumbar ROM normal Pelvis: no pain with anterior-posterior compression Neuro General: patient oriented x3 and moves all extremities Cranial nerves: Yes Equal, round and reactive pupils present Cognition (Neuro): normal cognition Motor exam (neuro): 5/5 motor strength present throughout Sensory Exam: Normal double simultaneous stimulation for sensation Coordination: [id number] test normal Extrem General: Yes normal to inspection, Yes full ROM and Yes capillary refill normal Psych Appearance: grossly normal Mental Status: mental status grossly normal Affect: normal affect Attitude: cooperative Thought process: Normal thought process present Thought content: Normal thought content present Insight: Good insight present (Psych) Medical Decision Making MDM Narrative Medical decision making narrative: Patient is a 60 year old female presenting to the emergency department today with right sided low back pain. Patient's physical exam was unremarkable. I explained my physical exam findings to the patient. I answered all questions asked by the patient. Patient received IM toradol and PO Flexeril which she stated helped her symptoms significantly. I stressed the importance of the patient taking her medication as prescribed. I stressed the importance of the patient following up with her primary care provider. I stressed the importance of the patient returning to the emergency department immediately if her symptoms were to worsen or if she were to develop any dizziness, shortness of breath, difficulty breathing, chest pain, blurry vision, loss of vision, nausea, vomiting, abdominal pain, fever, chills, back pain, or any other complaints. Patient verbalized agreement and understanding with this treatment plan and discharge. Differential Diagnosis Differential Diagnosis: sciatic back pain, low back pain Medical Records Medical records reviewed: Yes I reviewed the patient's medical records. Discharge Plan Discharge Clinical Impression: Sciatica Patient Disposition: Home, Self-Care Instructions: Acute Low Back Pain (ED) Additional Instructions: Follow up with your primary care provider. Return to the emergency department immediately if your symptoms worsen or if you develop any dizziness, shortness of breath, difficulty breathing, chest pain, blurry vision, loss of vision, nausea, vomiting, abdominal pain, fever, chills, back pain, or any other complaints. Prescriptions: New cyclobenzaprine 10 mg tablet 10 mg PO TID PRN (Reason: sciatic nerve pain) 7 Days Qty: 21 0RF Continued gabapentin 400 mg capsule 400 mg PO BEDTIME albuterol sulfate 90 mcg/actuation HFA aerosol inhaler 2 puff inhalation Q4-6H PRN (Reason: shortness of breath or wheezing) Qty: 6.7 0RF ipratropium-albuterol 0.5 mg-3 mg(2.5 mg base)/3 mL Solution For Nebulization 3 ml INHALATION Q6H PRN (Reason: Respiratory Distress) atorvastatin 80 mg tablet 80 mg PO BEDTIME clonazepam 0.5 mg Tablet 0.5 mg PO BEDTIME Rx Instructions: administer 30 minutes before bedtime clonazepam [Klonopin] 1 mg tablet 1 mg PO DAILY Rx Instructions: administer 30 minutes before bedtime zolpidem 10 mg tablet 10 mg PO BEDTIME PRN (Reason: Insomnia) risperidone 0.5 mg tablet 0.5 mg PO BID amlodipine 10 mg tablet 10 mg PO BEDTIME enalapril maleate 10 mg tablet 10 mg PO DAILY calcium carbonate-vitamin D3 600 mg(1,500mg) -400 unit tablet 1 tab PO BID potassium chloride 20 mEq tablet,ER particles/crystals 20 meq PO BID cetirizine 10 mg tablet 10 mg PO BEDTIME buspirone 7.5 mg tablet 7.5 mg PO BID Combivent Respimat 20-100 mcg/actuation mist 1 puff inhalation QID Spiriva with HandiHaler 18 mcg capsule, w/inhalation device 1 cap inhalation DAILY 30 Days Qty: 30 6RF Rx Instructions: puncture 1 cap using device; one dose = 2 inhalations Discontinued tramadol 50 mg tablet 50 mg PO BID PRN (Reason: Pain) acetaminophen 325 mg tablet 650 mg PO QID PRN (Reason: FEVER/PAIN) No Action levothyroxine 75 mcg tablet 75 mcg PO DAILY 90 Days Qty: 90 1RF [facility] 10 billion cell -200 mg capsule, sprinkle 1 cap PO DAILY 30 Days Qty: 30 6RF omeprazole 20 mg capsule,delayed release(DR/EC) 20 mg PO BID@0630,1630 Certavite-Antioxidant 18-400 mg-mcg Tablet 1 tab PO DAILY clotrimazole 10 mg Yanick 10 mg MUCOUS MEMBRANE 5XD Rx Instructions: USE WHEN NEEDED FOR ORAL FUNGAL INFECTION montelukast 10 mg tablet 10 mg PO BEDTIME (DME) Knee Support Brace Misc See Rx Instructions .ROUTE .MEDSUPPLY Qty: 2 0RF Rx Instructions: As directed senna 8.6 mg capsule 17.2 mg PO BEDTIME 30 Days Qty: 60 6RF (DME) lancets 33 gauge misc See Rx Instructions Not Applicable DAILY Qty: 100 Rx Instructions: As directed (DME) FreeStyle Lite Strips Strip See Rx Instructions Not Applicable DAILY Qty: 10 Rx Instructions: As directed (DME) blood-glucose meter Kit See Rx Instructions .ROUTE DAILY Qty: 1 Rx Instructions: As directed fluticasone propion-salmeterol 250-50 mcg/dose blister with device 1 ea inhalation BID Ear Drops (carbamide peroxide) 6.5 % drops 5 drp otic (ears) BID chlorhexidine gluconate 0.12 % mouthwash 15 ml PO BID prednisone 20 mg tablet 20 mg PO BID Trulicity 1.5 mg/0.5 mL pen injector 1.5 mg subcut QWEEK Qty: 2 4RF Trulance 3 mg tablet 3 mg PO DAILY 30 Days Qty: 30 6RF Rx Instructions: Take one tablet by mouth once a day bisacodyl [Dulcolax (bisacodyl)] 5 mg tablet,delayed release (DR/EC) 10 mg PO BEDTIME 30 Days Qty: 60 6RF metoclopramide HCl [Reglan] 5 mg tablet 5 mg PO QIDACHS 30 Days Qty: 120 6RF Rx Instructions: Provider aware of possible interaction and pt is being monitored docusate sodium 100 mg capsule 100 mg PO BID 30 Days Qty: 60 6RF Referrals: [facility] [place] Family Medicine [Provider Group] [facility] [place] Primary Care[facility] [Provider Group] [facility] [place] Primary [facility] [Provider Group] Print Language: Danish
[2021-07-29] MEDS: Cyclobenzaprine HCl 10 MG TABLET PO (12:20)
[2021-07-29] MEDS: Ketorolac Tromethamine 30 MG/ML VIAL IM (12:20)
== END 2021-07-29 12:31 | disposition home or self-care (01) ==
PROVIDERS: Emergency Provider Emergency Medicine
DX: M54.41 Lumbago with sciatica, right side (principal); I10 Essential (primary) hypertension; E11.9 Type 2 diabetes mellitus without complications; Z86.718 Personal history of other venous thrombosis and embolism
CPT/HCPCS: 96372; 99283; 99284; J1885

== ENCOUNTER 2021-08-02 08:50 | Outpatient (REF) | payer OTHER, SELFPAY | END 2021-08-02 08:51 | disposition home or self-care (01) | LOC: HO.MDS 08:50 | PROVIDERS: Visit Provider Internal Medicine Pulmonary Disease | DX: J45.50 Severe persistent asthma, uncomplicated (principal) | CPT/HCPCS: 96372 ==

== ENCOUNTER → 2021-08-13 12:51 | Outpatient (BNVA) | payer OTHER, SELFPAY | PROVIDERS: PCP Nurse Practitioner Primary Care; Visit Provider Internal Medicine Pulmonary Disease | DX: J44.0 Chronic obstructive pulmonary disease with (acute) lower respiratory infection (principal); J45.50 Severe persistent asthma, uncomplicated; Z91.09 Other allergy status, other than to drugs and biological substances; Z79.899 Other long term (current) drug therapy | CPT/HCPCS: 99212 ==

== ENCOUNTER 2021-08-16 09:57 | Outpatient (REF) | payer OTHER, SELFPAY | END 2021-08-16 09:58 | disposition home or self-care (01) | LOC: HO.MDS 09:57 | PROVIDERS: Visit Provider Internal Medicine Pulmonary Disease | DX: J45.50 Severe persistent asthma, uncomplicated (principal) | CPT/HCPCS: J2357 ==

== ENCOUNTER → 2021-08-24 13:49 | Outpatient (BNVA) | payer OTHER, SELFPAY | PROVIDERS: PCP Nurse Practitioner Primary Care; Visit Provider Registered Nurse Diabetes Educator | DX: E11.65 Type 2 diabetes mellitus with hyperglycemia (principal) | CPT/HCPCS: 99211 ==

== ENCOUNTER 2021-08-27 08:54 | Emergency (ER) | payer OTHER, SELFPAY ==
--- NOTE | ~2021-08-27 | XR_ITS ---
EXAMINATION: XR CHEST CLINICAL INFORMATION: Chest pain COMPARISON: None TECHNIQUE: 2 views of the chest were obtained. FINDINGS: The lungs are well-expanded and clear of acute process. There is platelike atelectasis left lung base. Heart size and pulmonary vascularity is normal. No gross bony abnormality seen. XR/XR chest 2V IMPRESSION: Platelike atelectasis left lung base.
--- NOTE | 2021-08-27 09:24 | ECG_ITS ---
Test Reason : cp Blood Pressure : / mmHG Vent. Rate : 073 BPM Atrial Rate : 073 BPM P-R Int : 224 ms QRS Dur : 098 ms QT Int : 410 ms P-R-T Axes : 054 -47 037 degrees QTc Int : 451 ms Sinus rhythm with 1st degree A-V block with Premature atrial complexes Left anterior fascicular block Minimal voltage criteria for LVH, may be normal variant ( Bala product ) Abnormal ECG When compared with ECG of 06-JUL-2021 08:49, Premature atrial complexes are now Present Referred By: Generic ED Physician Electronically Signed By:BEHZAD LOUIE MD
[2021-08-27 09:28] VITALS: BP 138/89; PULSE 76; RESP 18; TEMP 36.6; O2SAT 97; BMI 39.1
[2021-08-27 09:50] LABS: MANUAL DIFF FLAG NO
[2021-08-27 09:54] LABS: Basophils Percent Auto 0.3 % (0-2); Eosinophils Absolute Auto 0.1 X10*3/uL (0.0-0.4); Eosinophils Percent Auto 1.4 % (0-4); Hematocrit 40.1 % (37.0-47.0); Hemoglobin 13.3 g/dl (12.0-16.0); Imm Gran Abs Auto 0.02 X10*3/uL (0.00-0.03); Imm Gran Pct Auto 0.3 % (0.0-0.4); Lymphocytes Absolute Auto 1.8 X10*3/uL (1.2-4.9); Lymphocytes Percent Auto 23.9 % (20-40); Mean Corpuscular HGB Conc 33.2 g/dl (31.0-35.0); Mean Corpuscular Hemoglobin 31.4 pg (27.0-33.0); Mean Corpuscular Volume 94.8 fL (80.0-98.0); Mean Platelet Volume 9.4 fL (9.4-12.3); Monocytes Absolute Auto 0.7 X10*3/uL (0.1-1.2); Monocytes Percent Auto 9.1 % (2-11); Platelet Count 234 X10*3/uL (160-400); Red Blood Count 4.23 X10*6/uL (4.20-5.50); Red Cell Distribution Width 13.6 % (11.0-16.0); White Blood Count 7.7 X10*3/uL (4.8-10.8)
[2021-08-27 10:14] LABS: IDNOW Serial# 08D9AD1C; Influenza A Negative (Negative); Influenza B2 Negative (Negative); Strep A Nucleic Acid Negative (Negative)
[2021-08-27 10:15] LABS: Troponin-I High Sensitivity < 3.5 ng/L (<3.5-17.0)
[2021-08-27 11:06] LABS: COVID-19 Test Negative (Negative)
== END 2021-08-27 13:38 | disposition left against medical advice (07) ==
PROVIDERS: Emergency Provider Emergency Medicine; PCP Nurse Practitioner Primary Care
DX: R07.89 Other chest pain (principal); J02.9 Acute pharyngitis, unspecified; Z20.822 Contact with and (suspected) exposure to COVID-19; Z79.899 Other long term (current) drug therapy
CPT/HCPCS: 36415; 71046; 84484; 85025; 87502; 87635; 87651; 93005; 99283

== ENCOUNTER 2021-08-30 10:07 | Outpatient (REF) | payer OTHER, SELFPAY | END 2021-08-30 10:08 | disposition home or self-care (01) | LOC: HO.MDS 10:07 | PROVIDERS: Visit Provider Internal Medicine Pulmonary Disease | DX: J45.50 Severe persistent asthma, uncomplicated (principal) | CPT/HCPCS: 96372; J2357 ==

== ENCOUNTER → 2021-08-31 12:07 | Outpatient (BNVA) | payer OTHER, SELFPAY | PROVIDERS: PCP Nurse Practitioner Primary Care; Visit Provider Registered Nurse Diabetes Educator | DX: E11.65 Type 2 diabetes mellitus with hyperglycemia (principal) | CPT/HCPCS: 99211 ==

== ENCOUNTER 2021-09-05 10:41 | Emergency (ER) | payer OTHER, SELFPAY ==
--- NOTE | ~2021-09-05 | CT_ITS ---
EXAMINATION: CT CHEST WITHOUT CONTRAST CT THORACIC SPINE WITHOUT CONTRAST CLINICAL INFORMATION: Pain following fall. COMPARISON: Most recent chest radiograph dated 08/27/2021. CTA chest dated 09/29/2020. TECHNIQUE: Contiguous axial CT images of the chest were obtained without contrast. Contiguous axial CT images of the thoracic spine were obtained without contrast. Sagittal and coronal reformats were provided and reviewed. This CT examination was performed using dose optimization techniques as appropriate, variously including the following: *Automated exposure control *Adjustment of mA and/or kV according to patient size (this includes techniques or standardized protocols for targeted exams where dose is matched to indication/reason for exam; i.e. extremities or head) *Use of iterative reconstruction technique DOSE: 1248 mGy-cm. 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 Left basilar linear atelectasis. The central airways are patent. Pleura: No pleural effusion or pneumothorax. No pleural mass or thickening. Mediastinum: No cardiomegaly. No significant pericardial effusion. Mild dilatation of the ascending thoracic aorta measuring 4.3 cm in greatest dimension, similar when compared to the prior CT. Atherosclerotic calcifications. Stable, small superior mediastinal lymph nodes. No increasing mediastinal or hilar lymphadenopathy. Chest Wall/Axilla: No lymphadenopathy. No soft tissue mass or fluid collection. THYROID: Unremarkable UPPER ABDOMEN: The visualized upper abdominal structures are unremarkable. OSSEOUS STRUCTURES: There are nondisplaced anterolateral left fifth and sixth rib fractures. No additional fracture or dislocation. No concerning lytic or blastic osseous lesion. THORACIC SPINE: Normal vertebral body alignment. The thoracic kyphosis is maintained. No acute fracture or subluxation. No loss of vertebral body height. Mild multilevel loss of intervertebral disc height with small endplate osteophytes. No concerning lytic or blastic osseous lesion. The visualized paraspinal soft tissues are unremarkable. No abnormal soft tissue mass or fluid collection. No significant bony central canal or neural foraminal stenosis. Evaluation of disc bulges and stenosis limited on CT examination. CT/CT thoracic spine wo con IMPRESSION: CHEST: 1. Nondisplaced anterolateral left fifth and sixth rib fractures. 2. No new pulmonary nodule, mass, or airspace consolidation. 3. Stable, mild dilatation of the ascending thoracic aorta, unchanged. THORACIC SPINE: 1. No acute osseous abnormality. No fracture or subluxation. 2. Mild multilevel degenerative disc disease.
--- NOTE | ~2021-09-05 | XR_ITS ---
EXAMINATION: XR KNEE, BILATERAL CLINICAL INFORMATION: Pain, trauma COMPARISON: 03/09/2020 TECHNIQUE: 4 views of each knee FINDINGS: Right knee: No joint space narrowing. No fracture. No joint effusion. No change. Left knee: Mild medial compartment narrowing with small marginal osteophytes. No joint effusion. No fracture. A small posterior calcification may represent a loose body within a Tolentino's cyst. XR/XR knee RT 4V IMPRESSION: Right knee: Normal. Left knee: Mild medial compartment osteoarthritis. Possible loose body within a Tolentino's cyst. No change.
--- NOTE | ~2021-09-05 | XR_ITS ---
EXAMINATION: XR KNEE, BILATERAL CLINICAL INFORMATION: Pain, trauma COMPARISON: 03/09/2020 TECHNIQUE: 4 views of each knee FINDINGS: Right knee: No joint space narrowing. No fracture. No joint effusion. No change. Left knee: Mild medial compartment narrowing with small marginal osteophytes. No joint effusion. No fracture. A small posterior calcification may represent a loose body within a Tolentino's cyst. XR/XR knee LT 4V IMPRESSION: Right knee: Normal. Left knee: Mild medial compartment osteoarthritis. Possible loose body within a Tolentino's cyst. No change.
--- NOTE | ~2021-09-05 | CT_ITS ---
EXAMINATION: CT HEAD WITHOUT CONTRAST CT CERVICAL SPINE WITHOUT CONTRAST CLINICAL INFORMATION: Pain following a fall. COMPARISON: CT head and MR head dated 07/06/2021. TECHNIQUE: Contiguous axial imaging was performed from the skull base to vertex without intravenous administration of contrast. Contiguous axial CT images of the cervical spine were obtained without contrast. Sagittal and coronal reformats were provided and reviewed. This CT examination was performed using dose optimization techniques as appropriate, variously including the following: *Automated exposure control *Adjustment of mA and/or kV according to patient size (this includes techniques or standardized protocols for targeted exams where dose is matched to indication/reason for exam; i.e. extremities or head) *Use of iterative reconstruction technique DLP: 128 mGy-cm FINDINGS: HEAD: There is no evidence of acute intracranial hemorrhage or territorial infarction. No abnormal mass effect or midline shift is seen. [place] to white matter differentiation is well preserved. No extra-axial fluid collections are identified. The ventricles are normal in size. There is no abnormal attenuation within the brain parenchyma. The osseous structures and soft tissues are normal. Mucous retention cysts versus polyps within the bases of the maxillary sinuses. Otherwise, the visualized paranasal sinuses and mastoid air cells are clear. CERVICAL SPINE: Straightening of the normal cervical lordosis which may be positional or related to muscular spasm. No acute fracture or subluxation. No loss of vertebral body height. Loss of intervertebral disc height at C4-C5 and to a lesser degree at C5-C6. Degenerative endplate changes at C4-C5. Unremarkable facet joints. No lytic or blastic osseous lesion. Unremarkable prevertebral soft tissues. No abnormal soft tissue mass or fluid collection. Thyroid within normal limits. Visualized lung apices are clear. No significant central canal or neural foraminal stenosis. CT/CT cervical spine wo con IMPRESSION: Head: No acute intracranial hemorrhage or mass effect. Cervical Spine: No acute fracture or subluxation. Straightening of the normal cervical lordosis which may be positional or related to muscle spasm. Degenerative disc disease at C4-C5 and to a lesser degree at C5-C6.
[2021-09-05 11:07] VITALS: BP 138/94; PULSE 83; O2SAT 95
[2021-09-05 11:18] VITALS: BP 118/80; PULSE 81; RESP 16; TEMP 36.4; O2SAT 95; BMI 37.5
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
[2021-09-05] MEDS: Albuterol/Iprat 2.5/0.5MG 3 ML AMPUL.NEB INHALE (12:05)
[2021-09-05 12:07] VITALS: PULSE 72; RESP 18; O2SAT 96
[2021-09-05] MEDS: ondansetron HCL 4 MG/2 ML VIAL IVPUSH (12:28)
[2021-09-05 12:31] LABS: MANUAL DIFF FLAG NO
[2021-09-05] MEDS: 0.9 % Sodium Chloride 1,000 ML 999 ML IV (12:31)
[2021-09-05 12:32] VITALS: RESP 16
[2021-09-05] MEDS: Morphine Sulfate 4 MG/ML CARTRIDGE IVPUSH (12:32)
[2021-09-05 12:41] LABS: Basophils Percent Auto 0.2 % (0-2); Eosinophils Absolute Auto 0.1 X10*3/uL (0.0-0.4); Eosinophils Percent Auto 0.9 % (0-4); Hematocrit 41.5 % (37.0-47.0); Hemoglobin 13.6 g/dl (12.0-16.0); Imm Gran Abs Auto 0.04 X10*3/uL (0.00-0.03); Imm Gran Pct Auto 0.5 % (0.0-0.4); Lymphocytes Absolute Auto 2.3 X10*3/uL (1.2-4.9); Lymphocytes Percent Auto 26.6 % (20-40); Mean Corpuscular HGB Conc 32.8 g/dl (31.0-35.0); Mean Corpuscular Hemoglobin 31.3 pg (27.0-33.0); Mean Corpuscular Volume 95.6 fL (80.0-98.0); Mean Platelet Volume 9.3 fL (9.4-12.3); Monocytes Absolute Auto 0.6 X10*3/uL (0.1-1.2); Monocytes Percent Auto 6.5 % (2-11); Neutrophils Absolute Auto 5.7 x10*3/uL (2.0-8.3); Neutrophils Percent Auto 65.3 % (45-73); Platelet Count 284 X10*3/uL (160-400); Red Blood Count 4.34 X10*6/uL (4.20-5.50); Red Cell Distribution Width 13.8 % (11.0-16.0); White Blood Count 8.8 X10*3/uL (4.8-10.8)
[2021-09-05 12:55] LABS: Troponin-I High Sensitivity < 3.5 ng/L (<3.5-17.0)
[2021-09-05 13:14] LABS: Alanine Aminotransferase 28 U/L (0-31); Albumin Level 4.3 g/dL (3.5-5.0); Alkaline Phosphatase 89 U/L (39-117); Anion Gap 9 (12-20); Aspartate Amino Transferase 33 U/L (5-31); Bilirubin Total 0.5 mg/dL (0.0-1.0); Blood Urea Nitrogen 12 mg/dL (9-16); Calcium 9.7 mg/dL (8.4-10.2); Carbon Dioxide 29 mmol/L (22-29); Chloride 109 mmol/L (96-108); Creatinine Clr Calc Pharmacy 76.8; Estimated Glomerular Filt Rate > 60; Glucose Random 126 mg/dL (60-115); Potassium 4.1 mmol/L (3.3-5.1); Sodium 143 mmol/L (135-145); Total Protein 6.9 g/dL (6.5-8.0)
[2021-09-05 15:32] LABS: Appearance Urine CLEAR; Color Urine YELLOW; Glucose Urine UA NEG (NEG); Leukocyte Esterase Urine NEG (NEG); Nitrite Urine NEG (NEG); PH 7.5 (5.0-8.0); Specific Gravity - Urine 1.015 (1.005-1.025); Urine Blood NEG (NEG); Urine Ketones NEG (NEG); Urine Protein NEG (NEG-TRACE)
[2021-09-05 15:33] VITALS: BP 128/92; PULSE 74; RESP 16; TEMP 36.4; O2SAT 96
[2021-09-05 16:46] LABS: Troponin-I High Sensitivity < 3.5 ng/L (<3.5-17.0)
[2021-09-05 16:49] LABS: COVID-19 Test Negative (Negative); IDNOW Serial# 16C4AD1C
== END 2021-09-05 18:54 | disposition home or self-care (01) ==
PROVIDERS: Physician Assistant; Emergency Provider Emergency Medicine
DX: S22.42XA Multiple fractures of ribs, left side, initial encounter for closed fracture (principal); S16.1XXA Strain of muscle, fascia and tendon at neck level, initial encounter; R42 Dizziness and giddiness; R07.89 Other chest pain; N64.4 Mastodynia; M54.50 Low back pain, unspecified; M54.6 Pain in thoracic spine; R51.9 Headache, unspecified; M25.562 Pain in left knee; M25.561 Pain in right knee; V19.9XXA Pedal cyclist (driver) (passenger) injured in unspecified traffic accident, initial encounter; Y93.9 Activity, unspecified; Y92.9 Unspecified place or not applicable; Y99.9 Unspecified external cause status; Z20.822 Contact with and (suspected) exposure to COVID-19; Z79.899 Other long term (current) drug therapy
CPT/HCPCS: 36415; 70450; 71250; 72125; 72128; 73564; 80053; 81003; 84484; 85025; 87635; 94640; 96361; 96374; 96375; 99284; J2270; J2405

== ENCOUNTER 2021-09-08 09:37 | Emergency (ER) | payer OTHER, SELFPAY ==
--- NOTE | 2021-09-08 | ECG_ITS ---
Test Reason : chest pain Blood Pressure : / mmHG Vent. Rate : 068 BPM Atrial Rate : 068 BPM P-R Int : 230 ms QRS Dur : 090 ms QT Int : 408 ms P-R-T Axes : 041 -39 019 degrees QTc Int : 433 ms Sinus rhythm with 1st degree A-V block Left axis deviation Abnormal ECG When compared with ECG of 27-AUG-2021 09:19, Premature atrial complexes are no longer Present Referred By: Generic ED Physician Electronically Signed By:Agus Denise
--- NOTE | ~2021-09-08 | XR_ITS ---
EXAMINATION: XR CHEST CLINICAL INFORMATION: Chest pain. COMPARISON: Most recent CT chest dated 09/05/2021. TECHNIQUE: Frontal view of the chest was obtained. FINDINGS: Linear atelectasis redemonstrated within the left lung base. No focal airspace consolidation. No pleural effusion or pneumothorax. Stable cardiomediastinal silhouette. XR/XR chest 1V IMPRESSION: No acute cardiopulmonary findings.
[2021-09-08 09:46] VITALS: BP 143/98; PULSE 81; RESP 18; TEMP 36.4; O2SAT 95; BMI 36.3
[2021-09-08 12:03] LABS: MANUAL DIFF FLAG NO
[2021-09-08 12:05] LABS: Basophils Percent Auto 0.1 % (0-2); Eosinophils Absolute Auto 0.1 X10*3/uL (0.0-0.4); Eosinophils Percent Auto 1.9 % (0-4); Hematocrit 42.7 % (37.0-47.0); Hemoglobin 14.1 g/dl (12.0-16.0); Imm Gran Abs Auto 0.01 X10*3/uL (0.00-0.03); Imm Gran Pct Auto 0.1 % (0.0-0.4); Lymphocytes Absolute Auto 1.8 X10*3/uL (1.2-4.9); Lymphocytes Percent Auto 26.3 % (20-40); Mean Corpuscular Hemoglobin 31.3 pg (27.0-33.0); Mean Corpuscular Volume 94.9 fL (80.0-98.0); Mean Platelet Volume 9.4 fL (9.4-12.3); Monocytes Absolute Auto 0.5 X10*3/uL (0.1-1.2); Monocytes Percent Auto 6.5 % (2-11); Neutrophils Absolute Auto 4.5 x10*3/uL (2.0-8.3); Neutrophils Percent Auto 65.1 % (45-73); Platelet Count 281 X10*3/uL (160-400); Red Cell Distribution Width 13.4 % (11.0-16.0); White Blood Count 6.9 X10*3/uL (4.8-10.8)
[2021-09-08 12:23] LABS: Anion Gap 10 (12-20); Blood Urea Nitrogen 10 mg/dL (9-16); Calcium 9.3 mg/dL (8.4-10.2); Carbon Dioxide 27 mmol/L (22-29); Chloride 108 mmol/L (96-108); Estimated Glomerular Filt Rate > 60; Glucose Random 130 mg/dL (60-115); Potassium 4.4 mmol/L (3.3-5.1); Sodium 141 mmol/L (135-145)
[2021-09-08 12:31] LABS: Troponin-I High Sensitivity < 3.5 ng/L (<3.5-17.0)
--- NOTE | 2021-09-08 15:23 | ED_ITS ---
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 Patient states that the lidocaine patches work very well for her and endorses that she is otherwise allergic to aspirin as well as Naprosyn. She denies any chest pain/palpitations or shortness of breath or difficulty walking. Related Data Home Medications Medication Instructions Recorded Confirmed amlodipine 10 mg tablet 10 mg PO BEDTIME 11/20/19 07/06/21 blood sugar diagnostic #10 ea 11/20/19 03/08/21 blood-glucose meter #1 ea 11/20/19 03/08/21 calcium carbonate 600 mg-vitamin 1 tab PO BID 11/20/19 07/06/21 D3 10 mcg (400 unit) tablet cetirizine 10 mg tablet 10 mg PO BEDTIME 11/20/19 07/06/21 lancets 33 gauge #100 ea 11/20/19 03/08/21 potassium chloride 20 mEq 20 meq PO BID 11/20/19 07/06/21 tablet,extended release(part/cryst) risperidone 0.5 mg tablet 0.5 mg PO BID 11/20/19 07/06/21 zolpidem 10 mg tablet 10 mg PO BEDTIME PRN Insomnia 11/20/19 07/06/21 clonazepam 1 mg tablet (Klonopin) 1 mg PO DAILY 03/08/20 07/06/21 montelukast 10 mg tablet 10 mg PO BEDTIME 03/08/20 07/06/21 chlorhexidine gluconate 0.12 % 15 ml PO BID 06/29/21 07/06/21 mouthwash fluticasone 250 mcg-salmeterol 50 1 ea inhalation BID 06/29/21 07/06/21 mcg/dose blistr powdr for inhalation ipratropium 20 mcg-albuterol 100 1 puff inhalation QID 06/29/21 07/06/21 mcg/actuation mist for inhalation (Combivent Respimat) ipratropium 0.5 mg-albuterol 3 mg 3 ml inhalation Q6H PRN 05/20/22 05/20/22 (2.5 mg base)/3 mL nebulization Respiratory Distress soln multivitamin-ferrous 1 tab PO DAILY 07/06/21 07/06/21 fumarate-folic acid 18 mg-400 mcg tablet (Certavite-Antioxidant) omeprazole 20 mg capsule,delayed 20 mg PO BID@0630,1630 07/06/21 07/06/21 release Previous Rx's Medication Instructions Recorded leg brace (Knee Support Brace) #2 ea 03/08/20 albuterol sulfate 90 mcg/actuation 2 puff inhalation Q4-6H PRN 09/29/20 aerosol inhaler shortness of breath or wheezing #6.7 grams sennosides 8.6 mg capsule (senna) 17.2 mg PO BEDTIME constipation 30 03/19/21 days #60 caps levothyroxine 75 mcg tablet 75 mcg PO DAILY 90 days #90 tabs 04/16/21 Lactobacil rhamnosus GG 10 billion 1 cap PO DAILY 30 days #30 caps 06/13/21 cell-inulin 200 mg sprinkle capsule ([facility]) bisacodyl 5 mg tablet,delayed 10 mg PO BEDTIME 30 days #60 tabs 06/18/21 release (Dulcolax (bisacodyl)) docusate sodium 100 mg capsule 100 mg PO BID 30 days #60 caps 06/18/21 metoclopramide HCl 5 mg tablet 5 mg PO QIDACHS 30 days #120 tabs 06/18/21 (Reglan) plecanatide 3 mg tablet (Trulance) 3 mg PO DAILY 30 days #30 tabs 06/18/21 cyclobenzaprine 10 mg tablet 10 mg PO TID PRN sciatic nerve 07/29/21 pain 7 days #21 tabs gabapentin 400 mg capsule 400 mg PO BEDTIME #30 caps 07/30/21 tiotropium bromide 18 mcg capsule 1 cap inhalation DAILY #30 caps 08/07/21 with inhalation device (Spiriva with HandiHaler) doxycycline monohydrate 100 mg 100 mg PO BID 5 days #10 caps 08/13/21 capsule prednisone 10 mg tablet 40 mg PO DAILY 5 days #20 tabs 08/13/21 atorvastatin 80 mg tablet 80 mg PO BEDTIME #30 tabs 08/16/21 insulin NPH isoph U-100 human 100 20 unit (0.2 mL) subcut QAM #15 mL 08/31/21 unit/mL (3 mL) subcutaneous pen (Humulin N NPH U-100 Insulin KwikPen) insulin aspart 8 unit subcut TID #15 mL 08/31/21 (niacinamide)(U-100) 100 unit/mL(3 mL) subcutaneous pen (Fiasp FlexTouch U-100 Insulin) omalizumab 150 mg/mL subcutaneous 300 mg (2 mL) subcut Q2W #4 mL 08/31/21 syringe (Xolair) pen needle, diabetic 32 gauge x #100 ea 09/03/21 (BD Lorna 2nd Gen Pen Needle) acetaminophen 500 mg tablet 1,000 mg PO Q8-10H PRN pain 7 days 09/05/21 (Tylenol Extra Strength) #42 tabs oxycodone 5 mg capsule 5 mg PO DAILY PRN pain #9 caps 09/05/21 Allergies Allergy/AdvReac Type Severity Reaction Status Date / Time aspirin [Aspirin] Allergy Mild ITCHY Verified 08/13/21 13:12 THROAT azithromycin Allergy Unknown Unknown Verified 08/13/21 13:12 naproxen Allergy Unknown Unknown Verified 08/13/21 13:12 simvastatin Allergy Unknown Unknown Verified 08/13/21 13:12 Fish Containing Products Allergy Swelling Verified 08/13/21 13:12 onion [ONION] AdvReac Mild RED FACE Verified 08/13/21 13:12 Review of Systems Review of Systems: Pertinent positives and negatives as stated in HPI 10 point review of systems is otherwise negative. [facility] Past Medical History Medical History Allergic rhinitis Anxiety and depression Bronchitis Chest pain Cocaine abuse COPD exacerbation Diabetes DVT (deep venous thrombosis) Fibromyalgia HTN (hypertension) Hypothyroidism Low vitamin D level Non-toxic multinodular goiter PTSD (post-traumatic stress disorder) Renal calculi Spondylosis of cervical region without myelopathy or radiculopathy UTI (urinary tract infection) Vertigo Surgical History H/O colonoscopy with polypectomy History of esophagogastroduodenoscopy (EGD) History of hysterectomy History of lithotripsy History of selective injection of anesthetic agent around lumbar nerve root Hx of right breast biopsy Family History Family History Father No problems noted. Mother Myocardial infarction CVA (cerebral vascular accident) Social History Social History Household Members: None Alcohol intake: never Patient Tobacco Use Status: Never used Tobacco Advance Directives: No Advance Directives Information Provided: Yes Current occupational status: disabled Physical Exam ED Vital Signs: Vital Signs - 24 hr 09/08/21 09:46 Temperature 97.5 F Pulse Rate 81 Respiratory Rate 18 Blood Pressure 143/98 H Pulse Oximetry 95 Oxygen Delivery Method Room Air BMI result Body Mass Index 36.3 VITAL SIGNS: Reviewed. GENERAL: Well developed, well nourished, in no acute distress. HEAD: Normocephalic/atraumatic EYES: PERRLA, EOMI EARS: Ext canals without abnormality OROPHARYNX: no oral lesions noted, posterior pharynx clear NECK: Supple, no adenopathy LUNGS: Normal breath sounds, no tachypnea/rhonchi/rales. SpO2<95>; CHEST WALL: Tenderness over site rib fractures without noted crepitus CARDIOVASCULAR: Regular rate and rhythm without noted murmurs ABDOMEN: Soft, non-tender, non-distended with bowel sounds. SKIN: Inspection of the skin reveals no rashes NEUROLOGIC: Alert and oriented x 4. Strength and sensation to light touch were grossly intact x 4. Course Course Course Narrative: 61-year-old female with history and clinical presentation consistent with poorly controlled pain that is associated with known rib fractures on the left side. On review of all investigations there are no acute findings to include no evidence of pneumothorax. Patient appeared to be unaware that she was able to purchase lidocaine patches [id number]. She was provided with 1 g of Tyl enol as well as a lidocaine patch here in the emergency room and then provided with the information to purchase lidocaine patches in [facility]. She is otherwise stable for discharge. Medical Decision Making Lab Data Result diagrams: 09/08/21 11:46 09/08/21 11:46 Labs: Lab Results 09/08/21 09/08/21 09/08/21 Range/Units 11:46 11:46 11:46 WBC 6.9 (4.8-10.8) X10*3/uL RBC 4.50 (4.20-5.50) X10*6/uL Hgb 14.1 (12.0-16.0) g/dl Hct 42.7 (37.0-47.0) % MCV 94.9 (80.0-98.0) fL MCH 31.3 (27.0-33.0) pg MCHC 33.0 (31.0-35.0) g/dl RDW 13.4 (11.0-16.0) % Plt Count 281 (160-400) X10*3/uL MPV 9.4 (9.4-12.3) fL Immature Gran % (Auto) 0.1 (0.0-0.4) % Neut % (Auto) 65.1 (45-73) % Lymph % (Auto) 26.3 (20-40) % [place] % (Auto) 6.5 (2-11) % Eos % (Auto) 1.9 (0-4) % Baso % (Auto) 0.1 (0-2) % Lymph # (Auto) 1.8 (1.2-4.9) X10*3/uL [place] # (Auto) 0.5 (0.1-1.2) X10*3/uL Eos # (Auto) 0.1 (0.0-0.4) X10*3/uL Baso # (Auto) 0.0 (0.0-0.2) X10*3/uL Abs Immat Gran (auto) 0.01 (0.00-0.03) X10*3/uL Absolute Neuts (auto) 4.5 (2.0-8.3) x10*3/uL Absolute Nucleated RBC 0.000 (0.0-0.012) X10*3/uL Nucleated RBC % (auto) 0.0 (0.0-0.2) /100WBC Sodium 141 (135-145) mmol/L Potassium 4.4 (3.3-5.1) mmol/L Chloride 108 (96-108) mmol/L Carbon Dioxide 27 (22-29) mmol/L Anion Gap 10 L (12-20) BUN 10 (9-16) mg/dL Creatinine 0.80 (0.5-1.4) mg/dL Estim Creat Clear Calc 80.0 Estimated GFR > 60 Random Glucose 130 H (60-115) mg/dL Calcium 9.3 (8.4-10.2) mg/dL Troponin I High Sens < 3.5 (<3.5-17.0) ng/L Discharge Plan Discharge Clinical Impression: Closed rib fracture Patient Disposition: Home, Self-Care Instructions: Rib Fracture (ED) Additional Instructions: 1. Resume all home medications as prescribed. 2. Tylenol 1000 mg, orally, every 6 hours as needed for pain control. Do not exceed 4000 mg within 24 hours. 3. Lidocaine patch, the name in the store is Salonpas, these can be applied to the area of maximal tenderness as directed on the outside packaging. 4. Continue with your breathing exercises as directed. 5. Follow-up with your primary care provider on Friday morning. Return to the ER for worsening symptoms. Prescriptions: No Action levothyroxine 75 mcg tablet 75 mcg PO DAILY 90 Days Qty: 90 1RF [facility] 10 billion cell -200 mg capsule, sprinkle 1 cap PO DAILY 30 Days Qty: 30 6RF gabapentin 400 mg capsule 400 mg PO BEDTIME Qty: 30 2RF Spiriva with HandiHaler 18 mcg capsule, w/inhalation device 1 cap inhalation DAILY Qty: 30 6RF atorvastatin 80 mg tablet 80 mg PO BEDTIME Qty: 30 4RF Xolair 150 mg/mL syringe 300 mg subcut Q2W Qty: 4 11RF Humulin N NPH Insulin KwikPen 100 unit/mL (3 mL) insulin pen 20 unit subcut QAM Qty: 15 2RF Fiasp FlexTouch U-100 Insulin 100 unit/mL (3 mL) insulin pen 8 unit subcut TID Qty: 15 5RF (DME) pen needle, diabetic [BD Lorna 2nd Gen Pen Needle] 32 gauge x 5/32 needle See Rx Instructions .Route Qty: 100 5RF Rx Instructions: injects 4 X/day albuterol sulfate 90 mcg/actuation HFA aerosol inhaler 2 puff inhalation Q4-6H PRN (Reason: shortness of breath or wheezing) Qty: 6.7 0RF ipratropium-albuterol 0.5 mg-3 mg(2.5 mg base)/3 mL Solution For Nebulization 3 ml INHALATION Q6H PRN (Reason: Respiratory Distress) omeprazole 20 mg capsule,delayed release(DR/EC) 20 mg PO BID@0630,1630 Certavite-Antioxidant 18-400 mg-mcg Tablet 1 tab PO DAILY cyclobenzaprine 10 mg tablet 10 mg PO TID PRN (Reason: sciatic nerve pain) 7 Days Qty: 21 0RF oxycodone 5 mg capsule 5 mg PO DAILY PRN (Reason: pain) Qty: 9 0RF Rx Instructions: Partial Fill upon patient request. acetaminophen [Tylenol Extra Strength] 500 mg tablet 1,000 mg PO Q8-10H PRN (Reason: pain) 7 Days Qty: 42 0RF montelukast 10 mg tablet 10 mg PO BEDTIME clonazepam [Klonopin] 1 mg tablet 1 mg PO DAILY Rx Instructions: administer 30 minutes before bedtime (DME) Knee Support Brace Misc See Rx Instructions .ROUTE .MEDSUPPLY Qty: 2 0RF Rx Instructions: As directed senna 8.6 mg capsule 17.2 mg PO BEDTIME 30 Days Qty: 60 6RF zolpidem 10 mg tablet 10 mg PO BEDTIME PRN (Reason: Insomnia) risperidone 0.5 mg tablet 0.5 mg PO BID amlodipine 10 mg tablet 10 mg PO BEDTIME (DME) lancets 33 gauge misc See Rx Instructions Not Applicable DAILY Qty: 100 Rx Instructions: As directed (DME) FreeStyle Lite Strips Strip See Rx Instructions Not Applicable DAILY Qty: 10 Rx Instructions: As directed calcium carbonate-vitamin D3 600 mg(1,500mg) -400 unit tablet 1 tab PO BID potassium chloride 20 mEq tablet,ER particles/crystals 20 meq PO BID cetirizine 10 mg tablet 10 mg PO BEDTIME (DME) blood-glucose meter Kit See Rx Instructions .ROUTE DAILY Qty: 1 Rx Instructions: As directed Combivent Respimat 20-100 mcg/actuation mist 1 puff inhalation QID fluticasone propion-salmeterol 250-50 mcg/dose blister with device 1 ea inhalation BID chlorhexidine gluconate 0.12 % mouthwash 15 ml PO BID doxycycline monohydrate 100 mg capsule 100 mg PO BID 5 Days Qty: 10 0RF prednisone 10 mg tablet 40 mg PO DAILY 5 Days Qty: 20 0RF Trulance 3 mg tablet 3 mg PO DAILY 30 Days Qty: 30 6RF Rx Instructions: Take one tablet by mouth once a day bisacodyl [Dulcolax (bisacodyl)] 5 mg tablet,delayed release (DR/EC) 10 mg PO BEDTIME 30 Days Qty: 60 6RF metoclopramide HCl [Reglan] 5 mg tablet 5 mg PO QIDACHS 30 Days Qty: 120 6RF Rx Instructions: Provider aware of possible interaction and pt is being monitored docusate sodium 100 mg capsule 100 mg PO BID 30 Days Qty: 60 6RF
== END 2021-09-08 15:50 | disposition home or self-care (01) ==
PROVIDERS: Emergency Provider Student in an Organized Health Care Education/Training Program
DX: S22.32XD Fracture of one rib, left side, subsequent encounter for fracture with routine healing (principal); X58.XXXD Exposure to other specified factors, subsequent encounter; E11.9 Type 2 diabetes mellitus without complications; E78.00 Pure hypercholesterolemia, unspecified; F14.10 Cocaine abuse, uncomplicated; F17.200 Nicotine dependence, unspecified, uncomplicated; Z86.718 Personal history of other venous thrombosis and embolism; Z79.4 Long term (current) use of insulin; Z79.02 Long term (current) use of antithrombotics/antiplatelets
CPT/HCPCS: 36415; 71045; 80048; 84484; 85025; 93005; 99283

== ENCOUNTER 2021-09-14 09:27 | Outpatient (REF) | payer OTHER, SELFPAY | END 2021-09-14 09:28 | disposition home or self-care (01) | LOC: HO.MDS 09:27 | PROVIDERS: Visit Provider Internal Medicine Pulmonary Disease | DX: J45.50 Severe persistent asthma, uncomplicated (principal) | CPT/HCPCS: 96372; J2357 ==

== ENCOUNTER → 2021-09-17 13:25 | Outpatient (BNVA) | payer OTHER, SELFPAY | PROVIDERS: PCP Nurse Practitioner Primary Care; Visit Provider Registered Nurse Diabetes Educator | DX: E11.65 Type 2 diabetes mellitus with hyperglycemia (principal) | CPT/HCPCS: 99211 ==

== ENCOUNTER 2021-09-19 12:39 | Outpatient (REF) | payer OTHER, SELFPAY ==
--- NOTE | ~2021-09-19 | US_ITS ---
EXAMINATION: US RETROPERITONEAL LIMITED (RENAL ONLY) CLINICAL INFORMATION: Calculus of kidney. COMPARISON: Ultrasound abdomen limited 04/18/2021. CT abdomen and pelvis with contrast 04/15/2021. TECHNIQUE: Real-time imaging of the kidneys. FINDINGS: RIGHT KIDNEY: 11.4 x 4.1 x 3.2 cm (SAG x AP x TRV). Right renal parenchymal cortical scarring. Renal cortical thickness is normal. No calculi or focal parenchymal lesions. No hydronephrosis. LEFT KIDNEY: 9.3 x 3.7 x 3.7 cm (SAG x AP x TRV). Left renal parenchymal cortical scarring. Renal cortical thickness is normal. No focal parenchymal lesions or hydronephrosis. A 4 mm echogenic focus in the left lower pole without associated twinkle artifact or shadowing, possibly a vascular reflector with a stone considered less likely. US/US renal BI IMPRESSION: A 4 mm echogenic focus in the left lower pole without associated twinkle artifact or shadowing, possibly a vascular reflector with a stone considered less likely. Bilateral renal parenchymal cortical scarring.
== END 2021-09-19 12:40 | disposition home or self-care (01) ==
LOC: HO.US 12:39
PROVIDERS: PCP Nurse Practitioner Primary Care
DX: N20.0 Calculus of kidney (principal)
CPT/HCPCS: 76775

== ENCOUNTER 2021-09-20 10:58 | Outpatient (REF) | payer OTHER, SELFPAY ==
--- NOTE | ~2021-09-20 | XR_ITS ---
EXAMINATION: XR CHEST CLINICAL INFORMATION: Productive cough. COMPARISON: Chest radiograph 09/08/2021. TECHNIQUE: 2 views of the chest were obtained. FINDINGS: Stable appearance of the cardiomediastinal silhouette with a tortuous atherosclerotic thoracic aorta. Unchanged platelike opacities in the left lower lobe, likely subsegmental atelectases and scarring. No new focal airspace opacity. No pleural effusion or pneumothorax. No acute osseous abnormalities. XR/XR chest 2V IMPRESSION: No acute cardiopulmonary findings.
== END 2021-09-20 10:59 | disposition home or self-care (01) ==
LOC: HO.XRAY 10:58
PROVIDERS: Absent Provider Nurse Practitioner Primary Care; PCP Nurse Practitioner Primary Care; Visit Provider Internal Medicine
DX: R05.8 Other specified cough (principal)
CPT/HCPCS: 71046

== ENCOUNTER 2021-09-27 09:38 | Emergency (ER) | payer OTHER, SELFPAY ==
[2021-09-27 09:42] VITALS: BP 137/91; PULSE 97; O2SAT 98
== END 2021-09-27 10:45 | disposition left against medical advice (07) ==
PROVIDERS: Emergency Provider Emergency Medicine
DX: R05.9 Cough, unspecified (principal); R50.9 Fever, unspecified

== ENCOUNTER 2021-10-04 09:50 | Outpatient (REF) | payer OTHER, SELFPAY | END 2021-10-04 09:51 | disposition home or self-care (01) | LOC: HO.MDS 09:50 | PROVIDERS: Visit Provider Internal Medicine Pulmonary Disease | DX: J45.50 Severe persistent asthma, uncomplicated (principal) | CPT/HCPCS: 96372; J2357 ==

== ENCOUNTER 2021-10-09 15:02 | Outpatient (REF) | payer OTHER, SELFPAY ==
--- NOTE | ~2021-10-09 | XR_ITS ---
EXAMINATION: XR CHEST CLINICAL INFORMATION: Covid infection. Worsening asthma shortness of breath and dyspnea COMPARISON: Previous chest x-ray most recent 09/20/2021 TECHNIQUE: 2 views of the chest were obtained. FINDINGS: The cardiac silhouette does not appear enlarged. The thoracic aorta is tortuous but stable. Hilar and mediastinal contours are otherwise unremarkable. There is minimal linear scarring or chronic subsegmental atelectasis at the left lung base that is stable. The lungs are otherwise clear. There is no pleural effusion or pneumothorax. There are degenerative changes of the spine. XR/XR chest 2V IMPRESSION: No evidence for acute disease in the chest.
== END 2021-10-09 15:03 | disposition home or self-care (01) ==
LOC: HO.XRAY 15:02
PROVIDERS: Absent Provider Nurse Practitioner Primary Care; PCP Nurse Practitioner Primary Care; Visit Provider Emergency Medicine
DX: J45.40 Moderate persistent asthma, uncomplicated (principal); R06.00 Dyspnea, unspecified
CPT/HCPCS: 71046

== ENCOUNTER 2021-10-11 10:10 | Outpatient (REF) | payer OTHER, SELFPAY ==
[2021-10-11 11:12] LABS: COVID-19 Test Negative (Negative); IDNOW Serial# 16C4AD1C
== END 2021-10-11 10:11 | disposition home or self-care (01) ==
LOC: HO.LAB 10:10
PROVIDERS: Visit Provider Internal Medicine
DX: Z20.822 Contact with and (suspected) exposure to COVID-19 (principal)
CPT/HCPCS: 87635; C9803

== ENCOUNTER 2021-10-11 10:27 | Outpatient (REF) | payer OTHER, SELFPAY ==
--- NOTE | 2021-10-11 10:32 | EMG_ITS ---
Right median and ulnar, motor and sensory studies were performed. Right radial sensory studies were performed and paraspinal muscles were tested with a needle. IMPRESSION: 1. [id number] right median neuropathy across carpal tunnel. 2. Mild right ulnar neuropathy across cubital tunnel. MD ORIANA Plaza/GUSL / [phone]
== END 2021-10-11 10:28 | disposition home or self-care (01) ==
LOC: HO.NEURO 10:27
PROVIDERS: PCP Nurse Practitioner Primary Care; Visit Provider Nurse Practitioner Primary Care
DX: R20.2 Paresthesia of skin (principal)
CPT/HCPCS: 95886; 95909

== ENCOUNTER → 2021-10-12 11:09 | Outpatient (BNVA) | payer OTHER, SELFPAY | PROVIDERS: PCP Nurse Practitioner Primary Care; Visit Provider Internal Medicine Pulmonary Disease | DX: J44.0 Chronic obstructive pulmonary disease with (acute) lower respiratory infection (principal); J45.50 Severe persistent asthma, uncomplicated; Z91.09 Other allergy status, other than to drugs and biological substances; Z79.899 Other long term (current) drug therapy | CPT/HCPCS: 99212 ==

== ENCOUNTER → 2021-10-16 13:07 | Outpatient (BNVA) | payer OTHER, SELFPAY | PROVIDERS: PCP Nurse Practitioner Primary Care; Visit Provider Urology | DX: N20.0 Calculus of kidney (principal); N39.0 Urinary tract infection, site not specified | CPT/HCPCS: Q3014 ==

== ENCOUNTER 2021-10-18 10:14 | Outpatient (REF) | payer OTHER, SELFPAY | END 2021-10-18 10:15 | disposition home or self-care (01) | LOC: HO.MDS 10:14 | PROVIDERS: Visit Provider Internal Medicine Pulmonary Disease | DX: J45.50 Severe persistent asthma, uncomplicated (principal) | CPT/HCPCS: 96372; J2357 ==

== ENCOUNTER 2021-10-28 11:21 | Emergency (ER) | payer OTHER, SELFPAY ==
--- NOTE | ~2021-10-28 | XR_ITS ---
EXAMINATION: XR CHEST CLINICAL INFORMATION: Chest pain. COMPARISON: Chest x-ray dated October 09, 2021. Chest CT dated September 05, 2021. TECHNIQUE: Frontal view of the chest was obtained. FINDINGS: No significant abnormality is noted involving the heart, lungs, bony thorax or soft tissues. Uncoiled, mildly atherosclerotic aorta, consistent with hypertension. XR/XR chest 1V IMPRESSION: No acute finding.
[2021-10-28 11:56] VITALS: BP 131/88; PULSE 74; RESP 18; TEMP 35.9; O2SAT 96; BMI 49.1
--- NOTE | 2021-10-28 12:00 | ECG_ITS ---
Test Reason : HYPERTENSION Blood Pressure : / mmHG Vent. Rate : 066 BPM Atrial Rate : 066 BPM P-R Int : 220 ms QRS Dur : 104 ms QT Int : 434 ms P-R-T Axes : 045 -44 024 degrees QTc Int : 454 ms Sinus rhythm with 1st degree A-V block Left axis deviation Minimal voltage criteria for LVH, may be normal variant ( Bala product ) Abnormal ECG When compared with ECG of 08-SEP-2021 11:14, No significant change was found Referred By: Generic ED Physician Electronically Signed By:GERARDO VASQUES
[2021-10-28 12:22] LABS: MANUAL DIFF FLAG NO
[2021-10-28 12:24] LABS: Basophils Percent Auto 0.5 % (0-2); Eosinophils Absolute Auto 0.1 X10*3/uL (0.0-0.4); Eosinophils Percent Auto 1.7 % (0-4); Hematocrit 41.7 % (37.0-47.0); Hemoglobin 13.9 g/dl (12.0-16.0); Imm Gran Abs Auto 0.01 X10*3/uL (0.00-0.03); Imm Gran Pct Auto 0.2 % (0.0-0.4); Lymphocytes Absolute Auto 2.4 X10*3/uL (1.2-4.9); Lymphocytes Percent Auto 40.2 % (20-40); Mean Corpuscular HGB Conc 33.3 g/dl (31.0-35.0); Mean Corpuscular Hemoglobin 31.7 pg (27.0-33.0); Mean Platelet Volume 9.5 fL (9.4-12.3); Monocytes Absolute Auto 0.4 X10*3/uL (0.1-1.2); Monocytes Percent Auto 7.3 % (2-11); Neutrophils Percent Auto 50.1 % (45-73); Platelet Count 276 X10*3/uL (160-400); Red Blood Count 4.39 X10*6/uL (4.20-5.50); Red Cell Distribution Width 13.2 % (11.0-16.0); White Blood Count 6.1 X10*3/uL (4.8-10.8)
[2021-10-28 12:42] LABS: Anion Gap 12 (12-20); Blood Urea Nitrogen 12 mg/dL (9-16); Calcium 9.3 mg/dL (8.4-10.2); Carbon Dioxide 28 mmol/L (22-29); Chloride 106 mmol/L (96-108); Creatinine Clr Calc Pharmacy 85.2; Estimated Glomerular Filt Rate > 60; Glucose Random 143 mg/dL (60-115); Potassium 4.1 mmol/L (3.3-5.1); Sodium 142 mmol/L (135-145)
[2021-10-28 12:50] LABS: Troponin-I High Sensitivity < 3.5 ng/L (<3.5-17.0)
== END 2021-10-28 18:39 | disposition left against medical advice (07) ==
PROVIDERS: Emergency Provider Emergency Medicine; PCP Nurse Practitioner Primary Care
DX: R07.89 Other chest pain (principal); I10 Essential (primary) hypertension; R51.9 Headache, unspecified; Z79.899 Other long term (current) drug therapy
CPT/HCPCS: 36415; 71045; 80048; 84484; 85025; 93005; 99283

== ENCOUNTER 2021-11-01 10:53 | Outpatient (REF) | payer OTHER, SELFPAY | END 2021-11-01 10:54 | disposition home or self-care (01) | LOC: HO.MDS 10:53 | PROVIDERS: Visit Provider Internal Medicine Pulmonary Disease | DX: J45.50 Severe persistent asthma, uncomplicated (principal) | CPT/HCPCS: 96372; J2357 ==

== ENCOUNTER → 2021-11-14 09:48 | Outpatient (BNVA) | payer OTHER, SELFPAY | PROVIDERS: PCP Nurse Practitioner Primary Care; Visit Provider Registered Nurse Diabetes Educator | DX: E11.65 Type 2 diabetes mellitus with hyperglycemia (principal) | CPT/HCPCS: 99211 ==

== ENCOUNTER 2021-11-15 12:30 | Outpatient (REF) | payer OTHER, SELFPAY | END 2021-11-15 12:31 | disposition home or self-care (01) | LOC: HO.MDS 12:30 | PROVIDERS: Visit Provider Internal Medicine Pulmonary Disease | DX: J45.50 Severe persistent asthma, uncomplicated (principal) | CPT/HCPCS: 96372; J2357 ==

== ENCOUNTER → 2021-11-21 09:45 | Outpatient (BNVA) | payer OTHER, SELFPAY | PROVIDERS: PCP Nurse Practitioner Primary Care; Visit Provider Orthopaedic Surgery | DX: G56.01 Carpal tunnel syndrome, right upper limb (principal); G56.21 Lesion of ulnar nerve, right upper limb | CPT/HCPCS: 99202 ==

== ENCOUNTER 2021-11-29 08:56 | Outpatient (REF) | payer OTHER, SELFPAY | END 2021-11-29 08:57 | disposition home or self-care (01) | LOC: HO.MDS 08:56 | PROVIDERS: Visit Provider Internal Medicine Pulmonary Disease | DX: J45.50 Severe persistent asthma, uncomplicated (principal) | CPT/HCPCS: 96372; J2357 ==

== ENCOUNTER 2021-12-06 12:18 | Day surgery (SDC) | payer OTHER, SELFPAY ==
--- NOTE | 2021-12-06 11:27 | W.PM.OPN ---
Operative Note Operative Note Date of Service: 12/06/21 Narrative: Preop diagnosis: 1. right Carpal tunnel syndrome Postop diagnosis: same Procedure: 1. right Carpal tunnel release Surgeon: Nicole Stewart MD Anesthesia: local block using 1% lidocaine with epinephrine Findings: Thickened transverse carpal ligament. EBL: Less than 5 mL Specimens: None Complications: None Disposition: Brought to recovery room in stable condition Plan: Follow-up for 10-14 days for wound check and suture removal Indications: The patient is 61 years old, with right carpal tunnel syndrome that has been unresponsive to nonoperative management. The risks and benefits of operative treatment including but not limited to risk of damage to blood vessels, nerves, tendons, infection, persistent pain, persistent symptoms, or possible need for additional surgery were discussed with the patient and the patient wishes to proceed with surgery. Procedure: Once consent was obtained a local block was performed using a combination of 1% lidocaine with epinephrine. The patient was then brought back to the operating suite and placed on the operative table in supine position. A tourniquet was applied to the proximal aspect of the right upper extremity and the limb was prepped and draped in a standard surgical fashion. Once assured that we had a good block, a 2.0 cm longitudinal incision was made centered over the carpal tunnel. The incision was made through the skin to the subcutaneous tissues using a #15 blade. Dissection was made down to the level of the transverse carpal ligament with care being taken to protect the palmar cutaneous nerve. Once the transverse carpal ligament was clearly visualized, a longitudinal incision was made in the transverse carpal ligament 1st using a #15 blade, then using tenotomy scissors under direct visualization. Care was taken to look for and protect the motor branch of the median nerve when seen in this area. Once satisfied with our carpal tunnel release the wound was copiously irrigated with normal saline and hemostasis was obtained with a brief period of local pressure. The skin edges were reapproximated with some 5.0 nylon suture material and a sterile dressing was applied. The patient appears to have tolerated the procedure well and with no complications. All digits were well vascularized at the conclusion of the case.
[2021-12-06 12:43] VITALS: BMI 36.5
--- NOTE | 2021-12-06 14:10 | MHC.SHP ---
Pre-Procedural Eval Section A Date of Service: 12/06/21 The patient is an INPATIENT: No Changes since office visit: No Cold of Flu in the past 2 weeks, No New Medical Problems, No Changes in Medication and No Patient answered all questions The History & Physical has been completed within 30 days and I have reviewed it.: Yes Section B Chief Complaint: Carpal tunnel syndrome, right upper limb Allergies: Allergies Allergy/AdvReac Type Severity Reaction Status Date / Time aspirin [Aspirin] Allergy Mild ITCHY Verified 11/21/21 10:28 THROAT azithromycin Allergy Unknown Unknown Verified 11/21/21 10:28 naproxen Allergy Unknown Unknown Verified 11/21/21 10:28 simvastatin Allergy Unknown Unknown Verified 11/21/21 10:28 Fish Containing Products Allergy Swelling Verified 11/21/21 10:28 onion [ONION] AdvReac Mild RED FACE Verified 11/21/21 10:28 Plan I have reviewed the history and physical and performed a pertinent physical examination on my patient. No changes have occurred unless specified.
== END 2021-12-06 14:00 | disposition home or self-care (01) ==
PROVIDERS: PCP Nurse Practitioner Primary Care; Visit Provider Orthopaedic Surgery
PROC: (CPT 64721; principal; 2021-12-06 17:00)
DX: G56.01 Carpal tunnel syndrome, right upper limb (principal); R20.0 Anesthesia of skin; R20.2 Paresthesia of skin; I10 Essential (primary) hypertension; J44.9 Chronic obstructive pulmonary disease, unspecified; E11.9 Type 2 diabetes mellitus without complications; M79.7 Fibromyalgia; E55.9 Vitamin D deficiency, unspecified; I82.409 Acute embolism and thrombosis of unspecified deep veins of unspecified lower extremity; F14.10 Cocaine abuse, uncomplicated; Z88.1 Allergy status to other antibiotic agents; Z88.8 Allergy status to other drugs, medicaments and biological substances; F17.210 Nicotine dependence, cigarettes, uncomplicated
CPT/HCPCS: 64721; J0171

== ENCOUNTER 2021-12-13 10:37 | Outpatient (REF) | payer OTHER, SELFPAY | END 2021-12-13 10:38 | disposition home or self-care (01) | LOC: HO.MDS 10:37 | PROVIDERS: Visit Provider Internal Medicine Pulmonary Disease | DX: J45.50 Severe persistent asthma, uncomplicated (principal) | CPT/HCPCS: 96372; J2357 ==

== ENCOUNTER → 2021-12-26 09:36 | Outpatient (BNVA) | payer OTHER, SELFPAY | PROVIDERS: PCP Nurse Practitioner Primary Care; Visit Provider Registered Nurse Diabetes Educator | DX: E11.65 Type 2 diabetes mellitus with hyperglycemia (principal) | CPT/HCPCS: 99211 ==

== ENCOUNTER 2021-12-27 11:14 | Outpatient (REF) | payer OTHER, SELFPAY | END 2021-12-27 11:15 | disposition home or self-care (01) | LOC: HO.MDS 11:14 | PROVIDERS: Visit Provider Internal Medicine Pulmonary Disease | DX: J45.50 Severe persistent asthma, uncomplicated (principal) | CPT/HCPCS: 96372; 99212; J2357 ==

== ENCOUNTER 2021-12-27 11:33 | Outpatient (REF) | payer OTHER, SELFPAY ==
[2021-12-27 13:04] LABS: Alanine Aminotransferase 16 U/L (0-31); Albumin Level 4.3 g/dL (3.5-5.0); Alkaline Phosphatase 98 U/L (39-117); Aspartate Amino Transferase 18 U/L (5-31); Bilirubin Direct < 0.2 mg/dL (0.0-0.5); Bilirubin Total 0.3 mg/dL (0.0-1.0); Total Protein 7.1 g/dL (6.5-8.0)
[2021-12-31 13:53] LABS: Alpha Fetoprotein 2.1 ng/mL
== END 2021-12-27 11:34 | disposition home or self-care (01) ==
LOC: HO.LAB 11:33
PROVIDERS: PCP Nurse Practitioner Primary Care; Visit Provider Nurse Practitioner
DX: K75.81 Nonalcoholic steatohepatitis (NASH) (principal)
CPT/HCPCS: 36415; 80076; 82105

== ENCOUNTER → 2022-01-04 11:56 | Outpatient (BNVA) | payer OTHER, SELFPAY | PROVIDERS: PCP Nurse Practitioner Primary Care; Visit Provider Dietitian, Registered | DX: E11.65 Type 2 diabetes mellitus with hyperglycemia (principal) | CPT/HCPCS: 97803 ==

== ENCOUNTER 2022-01-14 09:52 | Outpatient (REF) | payer OTHER, SELFPAY | END 2022-01-14 09:53 | disposition home or self-care (01) | LOC: HO.MDS 09:52 | PROVIDERS: Visit Provider Internal Medicine Pulmonary Disease | DX: J45.50 Severe persistent asthma, uncomplicated (principal) | CPT/HCPCS: 96372 ==

== ENCOUNTER 2022-01-22 10:51 | Outpatient (REF) | payer OTHER, SELFPAY ==
[2022-01-22 14:52] LABS: Creatinine Urine 100.57 mg/dL; Microalbum/Creatinine Ratio Ur 7.9 ug/mg cr
== END 2022-01-22 10:52 | disposition home or self-care (01) ==
LOC: HO.10HDLNP 10:51
PROVIDERS: Visit Provider Internal Medicine Endocrinology, Diabetes & Metabolism
DX: E11.65 Type 2 diabetes mellitus with hyperglycemia (principal)
CPT/HCPCS: 82043

== ENCOUNTER → 2022-01-23 10:28 | Outpatient (BNVA) | payer OTHER, SELFPAY | PROVIDERS: PCP Nurse Practitioner Primary Care; Visit Provider Internal Medicine Pulmonary Disease | DX: J45.50 Severe persistent asthma, uncomplicated (principal); Z91.09 Other allergy status, other than to drugs and biological substances; J44.0 Chronic obstructive pulmonary disease with (acute) lower respiratory infection | CPT/HCPCS: 99212 ==

== ENCOUNTER → 2022-01-24 12:47 | Outpatient (BNVA) | payer OTHER, SELFPAY | PROVIDERS: PCP Nurse Practitioner Primary Care; Visit Provider Internal Medicine Endocrinology, Diabetes & Metabolism | DX: E03.9 Hypothyroidism, unspecified (principal); E04.2 Nontoxic multinodular goiter; E11.65 Type 2 diabetes mellitus with hyperglycemia; Z79.4 Long term (current) use of insulin; Z79.52 Long term (current) use of systemic steroids; Z79.899 Other long term (current) drug therapy | CPT/HCPCS: 82947; 83036; 99211; 99212 ==

== ENCOUNTER 2022-01-28 09:28 | Outpatient (REF) | payer OTHER, SELFPAY | END 2022-01-28 09:29 | disposition home or self-care (01) | LOC: HO.MDS 09:28 | PROVIDERS: Visit Provider Internal Medicine Pulmonary Disease | DX: J45.50 Severe persistent asthma, uncomplicated (principal); E11.65 Type 2 diabetes mellitus with hyperglycemia | CPT/HCPCS: 96372; 99211 ==

== ENCOUNTER → 2022-01-31 14:34 | Outpatient (BNVA) | payer OTHER, SELFPAY | PROVIDERS: PCP Nurse Practitioner Primary Care; Referring Provider Nurse Practitioner Primary Care; Visit Provider Nurse Practitioner | DX: K75.81 Nonalcoholic steatohepatitis (NASH) (principal); K59.04 Chronic idiopathic constipation; K21.9 Gastro-esophageal reflux disease without esophagitis; Z79.899 Other long term (current) drug therapy | CPT/HCPCS: 99212 ==

== ENCOUNTER 2022-02-01 08:44 | Emergency (ER) | payer OTHER, SELFPAY ==
--- NOTE | ~2022-02-01 | CT_ITS ---
EXAMINATION: CT ABDOMEN AND PELVIS WITHOUT CONTRAST CLINICAL INFORMATION: Right low back pain. Right lower quadrant pain. History of kidney stones. COMPARISON: CT scans dating between April 15, 2021 and October 17, 2010 TECHNIQUE: Multidetector volumetric imaging was performed from the superior aspect of the liver through the pubic symphysis. Sagittal and coronal reformatted images were obtained on the technologist's workstation. This CT examination was performed using dose optimization techniques as appropriate, variously including the following: *Automated exposure control *Adjustment of mA and/or kV according to patient size (this includes techniques or standardized protocols for targeted exams where dose is matched to indication/reason for exam; i.e. extremities or head) *Use of iterative reconstruction technique DLP: 853 mGy-cm FINDINGS: LUNG BASES: The lung bases appear clear, with no evidence of inflammation or nodules. LIVER, GALLBLADDER, AND BILIARY TREE: The liver appears unremarkable in size, shape, and attenuation. No focal hepatic lesion or biliary ductal dilatation is appreciated. Unremarkable appearance of the gallbladder. PANCREAS: Unremarkable SPLEEN: Unremarkable ADRENAL GLANDS: Unremarkable KIDNEYS AND URETERS: Approximately 2.5 cm, exophytic, benign left upper pole simple renal cyst. 3 mm, nonobstructing left lower pole collecting system stone. No stone identified on the right. No evidence of hydronephrosis, hydroureter, or perinephric stranding on either side. BLADDER: Collapsed, therefore suboptimally evaluated. Grossly unremarkable. GASTROINTESTINAL TRACT: Unremarkable appearance of the stomach and small bowel. Sigmoid and descending colonic diverticulosis without evidence of diverticulitis. Normal-appearing distal ileum and vermiform appendix. ABDOMINAL WALL: Approximately 10.5 x by 4 cm right lateral abdominal wall lipoma appears unchanged over at least 6 years, therefore benign (image 52, series 3). There is eventration versus [place], 2.5 cm umbilical herniation. LYMPH NODES: No evidence of adenopathy by size criteria. VASCULAR: Mild fusiform aneurysmal dilation of the ascending thoracic aorta measuring approximately 4.2 cm in diameter. Mildly atherosclerotic aorta. Mildly ectatic infrarenal abdominal aorta. No aneurysm. PELVIC VISCERA: Status post hysterectomy, unchanged. OSSEOUS STRUCTURES: Unremarkable CT/CT abdomen pelvis wo IV con IMPRESSION: No acute finding. 4.2 cm ascending thoracic aortic aneurysm. Additional findings, as above.
[2022-02-01 08:46] VITALS: BP 137/95; PULSE 100; RESP 20; TEMP 37.2; O2SAT 95; BMI 37.8
--- NOTE | 2022-02-01 09:03 | ED_ITS ---
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 At times it goes down her right leg. She states it feels like similar pain to a kidney stone. She describes the pain as burning and constant. She denies any urinary symptoms except maybe some frequency but no blood or burning. No fever or chills, no N/V/D. MD elicited complaint: back pain Pertinent past history: prior back pain Onset (ago): day(s) (3) Timing: constant Severity: moderate Pain scale (0-10): 6 Similar Symptoms Previously: Yes Quality: sharp and aching Location: right lower back Radiation: abdomen, groin and right upper leg Exacerbating factors: movement Relieving factors: none Context: unknown Associated symptoms: denies other symptoms Work related injury: No Related Data Home Medications Medication Instructions Recorded Confirmed amlodipine 10 mg tablet 10 mg PO BEDTIME 11/20/19 01/24/22 blood sugar diagnostic #10 ea 11/20/19 01/24/22 blood-glucose meter #1 ea 11/20/19 01/24/22 calcium carbonate 600 mg-vitamin 1 tab PO BID 11/20/19 01/24/22 D3 10 mcg (400 unit) tablet cetirizine 10 mg tablet 10 mg PO BEDTIME 11/20/19 01/24/22 lancets 33 gauge #100 ea 11/20/19 01/24/22 potassium chloride 20 mEq 20 meq PO BID 11/20/19 01/24/22 tablet,extended release(part/cryst) risperidone 0.5 mg tablet 0.5 mg PO BID 11/20/19 01/24/22 zolpidem 10 mg tablet 10 mg PO BEDTIME PRN Insomnia 11/20/19 01/24/22 clonazepam 1 mg tablet (Klonopin) 1 mg PO DAILY 03/08/20 01/24/22 montelukast 10 mg tablet 10 mg PO BEDTIME 03/08/20 01/24/22 fluticasone 250 mcg-salmeterol 50 1 ea inhalation BID 06/29/21 01/24/22 mcg/dose blistr powdr for inhalation ipratropium 20 mcg-albuterol 100 1 puff inhalation QID 06/29/21 01/24/22 mcg/actuation mist for inhalation (Combivent Respimat) ipratropium 0.5 mg-albuterol 3 mg 3 ml inhalation Q6H PRN 07/06/21 01/24/22 (2.5 mg base)/3 mL nebulization Respiratory Distress soln multivitamin-ferrous 1 tab PO DAILY 07/06/21 01/24/22 fumarate-folic acid 18 mg-400 mcg tablet (Certavite-Antioxidant) fluoride (sodium) 1.1 % dental appl PO 10/16/21 01/24/22 cream (SF 5000 Plus) enalapril maleate 20 mg tablet 20 mg PO DAILY 01/24/22 01/24/22 buspirone 7.5 mg tablet 7.5 mg PO BID 01/31/22 dulaglutide 0.75 mg/0.5 mL mg subcut QWEEK 01/31/22 subcutaneous pen injector (Trulicity) emtricitabine 200 mg-tenofovir 1 tab PO DAILY 01/31/22 disoproxil fumarate 300 mg tablet levofloxacin 500 mg tablet 500 mg PO DAILY 01/31/22 lidocaine 5 % topical patch 1 patch topical DAILY 01/31/22 metformin 500 mg tablet,extended 500 mg PO QPM 01/31/22 release 24 hr sennosides 8.6 mg tablet (senna) 17.2 mg PO BEDTIME constipation 01/31/22 tramadol 50 mg tablet 50 mg PO BID PRN 01/31/22 Previous Rx's Medication Instructions Recorded leg brace (Knee Support Brace) #2 ea 03/08/20 albuterol sulfate 90 mcg/actuation 2 puff inhalation Q4-6H PRN 09/29/20 aerosol inhaler shortness of breath or wheezing #6.7 grams sennosides 8.6 mg capsule (senna) 17.2 mg PO BEDTIME constipation 30 03/19/21 days #60 caps tiotropium bromide 18 mcg capsule 1 cap inhalation DAILY #30 caps 08/07/21 with inhalation device (Spiriva with HandiHaler) omalizumab 150 mg/mL subcutaneous 300 mg (2 mL) subcut Q2W #4 mL 08/31/21 syringe (Xolair) acetaminophen 500 mg tablet 1,000 mg PO Q8-10H PRN pain 7 days 09/05/21 (Tylenol Extra Strength) #42 tabs pen needle, diabetic 32 gauge x #100 ea 10/11/21 (BD Lorna 2nd Gen Pen Needle) gabapentin 400 mg capsule 400 mg PO BEDTIME #30 caps 10/15/21 levothyroxine 75 mcg tablet 75 mcg PO QAM #90 tabs 10/16/21 dextrose 40 % oral gel (Glutose-15) 15 g PO DIRECTED #112.5 grams 11/13/21 insulin aspart 6 unit subcut TID #15 mL 12/14/21 (niacinamide)(U-100) 100 unit/mL(3 mL) subcutaneous pen (Fiasp FlexTouch U-100 Insulin) bisacodyl 5 mg tablet,delayed See Rx Instructions PO BEDTIME 30 12/27/21 release (Dulcolax (bisacodyl)) days #90 tabs docusate sodium 100 mg capsule 100 mg PO BID 30 days #60 caps 12/27/21 omeprazole 20 mg capsule,delayed 20 mg PO BID@0630,1630 #60 caps 12/27/21 release Lactobacil rhamnosus GG 10 billion 1 cap PO DAILY #30 caps 01/02/22 cell-inulin 200 mg sprinkle capsule ([facility] FoxyP2 [facility]) atorvastatin 80 mg tablet 80 mg PO BEDTIME #30 tabs 01/02/22 prednisone 10 mg tablet 40 mg PO DAILY 7 days #28 tabs 01/23/22 semaglutide 0.25 mg or 0.5 mg (2 0.5 mg (0.4 mL) subcut QWEEK #1.5 01/24/22 mg/1.5 mL) subcutaneous pen mL injector (Ozempic) metoclopramide HCl 10 mg tablet 10 mg PO TID #90 tabs 01/31/22 (Reglan) peg 3350-electrolytes 236 240 ml PO Q10M 1 day #4,000 mL 01/31/22 gram-22.74 gram-6.74 gram-5.86 gram solution (Golytely) plecanatide 3 mg tablet (Trulance) 3 mg PO DAILY 30 days #30 tabs 01/31/22 cefuroxime axetil 250 mg tablet 250 mg PO BID 7 days #14 tabs 02/01/22 Allergies Allergy/AdvReac Type Severity Reaction Status Date / Time aspirin [Aspirin] Allergy Mild ITCHY Verified 01/31/22 14:40 THROAT azithromycin Allergy Unknown Unknown Verified 01/31/22 14:40 naproxen Allergy Unknown Unknown Verified 01/31/22 14:40 simvastatin Allergy Unknown Unknown Verified 01/31/22 14:40 Fish Containing Products Allergy Swelling Verified 01/31/22 14:40 onion [ONION] AdvReac Mild RED FACE Verified 01/31/22 14:40 Review of Systems Review of Systems: Constitutional: No Fever, No Chills ENT/Mouth: No sore throat, No Rhinorrhea Cardiovascular: No Chest Pain, No SOB, No Orthopnea, No Edema Respiratory: No Cough, No Sputum, No Wheezing, No dyspnea Gastrointestinal: No Nausea, No Vomiting, No Diarrhea,+abdominal Pain Genitourinary: No Dysuria, + Urinary Frequency, No Hematuria Musculoskeletal: + joint pain, +Myalgias Skin: No Skin Lesions, No rash Neuro: No Weakness, No Numbness, No Dizziness, No Headache Heme/Lymph: No Bruising, No Lymphadenopathy PMFSH Past Medical History Medical History (Updated 02/01/22 @ 11:30 by RAYMUNDO Ward) Allergic rhinitis Anxiety and depression Bronchitis Chest pain Cocaine abuse COPD exacerbation Diabetes DVT (deep venous thrombosis) Fibromyalgia HTN (hypertension) Hypothyroidism Low vitamin D level Non-toxic multinodular goiter PTSD (post-traumatic stress disorder) Renal calculi Spondylosis of cervical region without myelopathy or radiculopathy UTI (urinary tract infection) Vertigo Surgical History (Updated 12/27/21 @ 16:48 by FABIAN Yang) H/O colonoscopy with polypectomy History of esophagogastroduodenoscopy (EGD) History of hysterectomy History of lithotripsy History of selective injection of anesthetic agent around lumbar nerve root Hx of right breast biopsy Family History Family History Father No problems noted. 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 Oriented X3. No acute distress. Eyes: Pupils equal, round and reactive to light. ENT: Pharynx normal. Neck: Normal inspection. Neck supple. CVS: Normal heart rate and rhythm. Pulses normal. Respiratory: No respiratory distress. Breath sounds normal. Abdomen: Soft and nontender, large soft mass in RLQ +BS x4 Back: tender soft tissues of the right lower back, no midline tenderness. normal ROM. Skin: Skin warm and dry. Normal skin color. Normal skin turgor. No rashes. Extremities: No lower extremity edema. Neuro: Oriented X 3. No motor deficit. No sensory deficit. Course Course Course Narrative: 61-year-old female with low back pain for the last 3 days that radiates to the groin, abdomen and down the leg. Most consistent with possible sciatica but could be kidney stone. will get CT scanned, lab workup, urinalysis. Pain meds ordered. Will reassess. She appears comfortable. Reevaluation(s) Reevaluation #1: Lab workup showing normal renal function, no leukocytosis. CT scan without any acute abnormalities. No kidney stones. Her urinalysis is slightly positive. Will empirically treat. Doubt pyelonephritis. Her pain is most likely musculoskeletal. Encouraged Tylenol around the clock and following up with her primary care doctor. Patient agrees with plan. 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 She is stable for NH home. Medications Administered Discontinued Medications Generic Name Dose Route Start Last Admin Trade Name Freq PRN Reason Stop Dose Admin Sodium Chloride 1,000 mls @ 999 mls/hr 02/01/22 09:15 02/01/22 12:37 Ns IV 02/01/22 10:15 Infused .Q1H1M HEIDE Infusion Oxycodone HCl 5 mg 02/01/22 10:11 02/01/22 10:24 Oxycodone Hcl Immed Release 5 Mg Tablet PO 02/01/22 10:12 5 mg ONCE ONE Administration Medical Decision Making Lab Data Result Diagrams: 02/01/22 09:57 02/01/22 12:26 Labs: Lab Results 02/01/22 02/01/22 02/01/22 Range/Units 09:57 10:00 12:26 WBC 7.4 (4.8-10.8) X10*3/uL RBC 4.58 (4.20-5.50) X10*6/uL Hgb 14.1 (12.0-16.0) g/dl Hct 42.6 (37.0-47.0) % MCV 93.0 (80.0-98.0) fL MCH 30.8 (27.0-33.0) pg MCHC 33.1 (31.0-35.0) g/dl RDW 13.7 (11.0-16.0) % Plt Count 258 (160-400) X10*3/uL MPV 9.6 (9.4-12.3) fL Immature Gran % (Auto) 0.3 (0.0-0.4) % Neut % (Auto) 52.2 (45-73) % Lymph % (Auto) 37.2 (20-40) % [place]field % (Auto) 8.2 (2-11) % Eos % (Auto) 1.6 (0-4) % Baso % (Auto) 0.5 (0-2) % Lymph # (Auto) 2.8 (1.2-4.9) X10*3/uL [place] # (Auto) 0.6 (0.1-1.2) X10*3/uL Eos # (Auto) 0.1 (0.0-0.4) X10*3/uL Baso # (Auto) 0.0 (0.0-0.2) X10*3/uL Abs Immat Gran (auto) 0.02 (0.00-0.03) X10*3/uL Absolute Neuts (auto) 3.9 (2.0-8.3) x10*3/uL Absolute Nucleated RBC 0.000 (0.0-0.012) X10*3/uL Nucleated RBC % (auto) 0.0 (0.0-0.2) /100WBC Sodium 142 (135-145) mmol/L Potassium 3.7 (3.3-5.1) mmol/L Chloride 109 H (96-108) mmol/L Carbon Dioxide 27 (22-29) mmol/L Anion Gap 10 L (12-20) BUN 11 (9-16) mg/dL Creatinine 0.81 (0.5-1.4) mg/dL Estim Creat Clear Calc 77.8 Estimated GFR > 60 Random Glucose 136 H (60-115) mg/dL Calcium 9.1 (8.4-10.2) mg/dL Magnesium 2.0 (1.6-2.6) mg/dL Total Bilirubin 0.3 (0.0-1.0) mg/dL Direct Bilirubin < 0.2 (0.0-0.5) mg/dL AST 18 (5-31) U/L ALT 18 (0-31) U/L Alkaline Phosphatase 93 (39-117) U/L Total Protein 6.5 (6.5-8.0) g/dL Albumin 4.1 (3.5-5.0) g/dL Urine Color Dark Yellow Urine Appearance Clear Urine pH 8.5 (5.0-9.0) Ur Specific [place] 1.020 (1.005-1.025) Urine Protein Trace (Neg-Trace) mg/dL Urine Glucose (UA) Negative (Negative) mg/dL Urine Ketones Negative (Negative) mg/dL Urine Blood Negative (Negative) Urine Nitrite Negative (Negative) Ur Leukocyte Esterase Small (1+) H (Negative) Urine RBC 0-2 (0-2) /HPF Urine WBC 0-5 (0-5) /HPF Ur Squamous Epith Cells 0-2 (0-2) /HPF Urine Bacteria None Seen (None Seen) Hyaline Casts 0-2 (0-2) /LPF Discharge Plan Discharge Clinical Impression: UTI (urinary tract infection), Low back pain Patient Disposition: Home, Self-Care Instructions: Urinary Tract Infection in Women (ED), Acute Low Back Pain (ED), Lower Back Exercises (ED) Additional Instructions: Your lab workup today was unremarkable. Your urine test showed possible infection, take the prescribed antibiotic as directed. Complete the entire course of do not miss any doses. Your CT scan did not show any evidence of kidney stones or any other causes of your pain Recommend using your lidocaine patches at home Recommend Tylenol 975 mg every 6 hours for pain No bending, lifting or twisting. Use ice several times per day for 20 minutes at a time for the next 48 hours and then change to heat. Follow up with your Primary Care Doctor nexk week. If your pain worsens, if you develop new numbness, tingling, weakness, loss of function or incontinence call 911 or come back to the ER right away for evaluation. Tu an?lisis de laboratorio de hoy no tuvo nada especial. Booth an?lisis de orina mostr? glory posible infecci?n, tome el antibi?jose recetado seg?n las indicaciones. Completa todo el curso de No te pierdas ninguna dosis. Booth tomograf?a computarizada no mostr? ninguna evidencia de c?lculos renales o cualquier otra causa de booth dolor. Recomiende usar norah parches de lidoca?na en casa Recomendar Tylenol 975 mg cada 6 horas para el dolor Sin doblar, levantar o torcer. Use hielo varias veces al d?a anabel 20 minutos a la vez anabel las pr?ximas 48 horas y luego cambie a calor. Holli un seguimiento con booth m?dico de atenci?n primaria la pr?xima semana. Si booth dolor empeora, si desarrolla un nuevo entumecimiento, hormigueo, debilidad, p?rdida de funci?n o incontinencia, llame al 911 o regrese a la chucky de emergencias de inmediato para glory evaluaci?n. Prescriptions: New cefuroxime axetil 250 mg tablet 250 mg PO BID 7 Days Qty: 14 0RF No Action Spiriva with HandiHaler 18 mcg capsule, w/inhalation device 1 cap inhalation DAILY Qty: 30 6RF Xolair 150 mg/mL syringe 300 mg subcut Q2W Qty: 4 11RF (DME) pen needle, diabetic [BD Lorna 2nd Gen Pen Needle] 32 gauge x /32 needle See Rx Instructions .Route Qty: 100 5RF Rx Instructions: injects 4 X/day gabapentin 400 mg capsule 400 mg PO BEDTIME Qty: 30 4RF levothyroxine 75 mcg tablet 75 mcg PO QAM Qty: 90 1RF dextrose [Glutose-15] 40 % gel 15 g PO DIRECTED Qty: 112.5 5RF Fiasp FlexTouch U-100 Insulin 100 unit/mL (3 mL) insulin pen 6 unit subcut TID Qty: 15 5RF atorvastatin 80 mg tablet 80 mg PO BEDTIME Qty: [address] [facility] 10 billion cell -200 mg capsule, sprinkle 1 cap PO DAILY Qty: 30 6RF albuterol sulfate 90 mcg/actuation HFA aerosol inhaler 2 puff inhalation Q4-6H PRN (Reason: shortness of breath or wheezing) Qty: 6.7 0RF ipratropium-albuterol 0.5 mg-3 mg(2.5 mg base)/3 mL Solution For Nebulization 3 ml INHALATION Q6H PRN (Reason: Respiratory Distress) Certavite-Antioxidant 18-400 mg-mcg Tablet 1 tab PO DAILY acetaminophen [Tylenol Extra Strength] 500 mg tablet 1,000 mg PO Q8-10H PRN (Reason: pain) 7 Days Qty: 42 0RF montelukast 10 mg tablet 10 mg PO BEDTIME clonazepam [Klonopin] 1 mg tablet 1 mg PO DAILY Rx Instructions: administer 30 minutes before bedtime (DME) Knee Support Brace Misc See Rx Instructions .ROUTE .MEDSUPPLY Qty: 2 0RF Rx Instructions: As directed senna 8.6 mg capsule 17.2 mg PO BEDTIME 30 Days Qty: 60 6RF zolpidem 10 mg tablet 10 mg PO BEDTIME PRN (Reason: Insomnia) risperidone 0.5 mg tablet 0.5 mg PO BID amlodipine 10 mg tablet 10 mg PO BEDTIME (DME) lancets 33 gauge misc See Rx Instructions Not Applicable DAILY Qty: 100 Rx Instructions: As directed (DME) FreeStyle Lite Strips Strip See Rx Instructions Not Applicable DAILY Qty: 10 Rx Instructions: As directed calcium carbonate-vitamin D3 600 mg(1,500mg) -400 unit tablet 1 tab PO BID potassium chloride 20 mEq tablet,ER particles/crystals 20 meq PO BID cetirizine 10 mg tablet 10 mg PO BEDTIME (DME) blood-glucose meter Kit See Rx Instructions .ROUTE DAILY Qty: 1 Rx Instructions: As directed Combivent Respimat 20-100 mcg/actuation mist 1 puff inhalation QID fluticasone propion-salmeterol 250-50 mcg/dose blister with device 1 ea inhalation BID enalapril maleate 20 mg tablet 20 mg PO DAILY Ozempic 0.25 mg or 0.5 mg(2 mg/1.5 mL) pen injector 0.5 mg subcut QWEEK Qty: 1.5 5RF prednisone 10 mg tablet 40 mg PO DAILY 7 Days Qty: 28 0RF omeprazole 20 mg capsule,delayed release(DR/EC) 20 mg PO BID@0630,1630 Qty: 60 6RF bisacodyl [Dulcolax (bisacodyl)] 5 mg tablet,delayed release (DR/EC) See Rx Instructions PO BEDTIME 30 Days Qty: 90 6RF Rx Instructions: 2 tabs qhs and 1 qam orally bedtime; docusate sodium 100 mg capsule 100 mg PO BID 30 Days Qty: 60 6RF fluoride (sodium) [SF 5000 Plus] 1.1 % cream PO buspirone 7.5 mg tablet 7.5 mg PO BID lidocaine 5 % adhesive patch,medicated 1 patch topical DAILY tramadol 50 mg tablet 50 mg PO BID PRN sennosides [senna] 8.6 mg tablet 17.2 mg PO BEDTIME levofloxacin 500 mg tablet 500 mg PO DAILY Trulicity 0.75 mg/0.5 mL pen injector subcut QWEEK metformin 500 mg tablet extended release 24 hr 500 mg PO QPM emtricitabine-tenofovir (TDF) 200-300 mg tablet 1 tab PO DAILY peg 3350-electrolytes [Golytely] 236-22.74-6.74 -5.86 gram recon soln 240 ml PO Q10M 1 Days Qty: 4000 0RF Rx Instructions: until fecal effluent is clear; do not exceed a total volume of 2,000 mL metoclopramide HCl [Reglan] 10 mg tablet 10 mg PO TID Qty: 90 6RF Trulance 3 mg tablet 3 mg PO DAILY 30 Days Qty: 30 6RF Rx Instructions: Take one tablet by mouth once a day Referrals: Sariah Vickers STOCK REPAIRER [Primary Care Provider] - Interventions: ED Discharge Assessment Last Done: 02/01/22 13:17 Discharge Date/Time: 02/01/22 13:22 Print Language: Nam[place]ian
[2022-02-01 10:04] LABS: MANUAL DIFF FLAG NO
[2022-02-01 10:07] LABS: Appearance Urine Clear; Color Urine Dark Yellow; Glucose Urine UA Negative (Negative); Leukocyte Esterase Urine Small (1+) (Negative); Nitrite Urine Negative (Negative); PH 8.5 (5.0-9.0); UMIC TRIGGER UACC YES; Urine Blood Negative (Negative); Urine Ketones Negative (Negative); Urine Protein Trace mg/dL (Neg-Trace)
[2022-02-01 10:07] LABS: Basophils Percent Auto 0.5 % (0-2); Eosinophils Absolute Auto 0.1 X10*3/uL (0.0-0.4); Eosinophils Percent Auto 1.6 % (0-4); Hematocrit 42.6 % (37.0-47.0); Hemoglobin 14.1 g/dl (12.0-16.0); Imm Gran Abs Auto 0.02 X10*3/uL (0.00-0.03); Imm Gran Pct Auto 0.3 % (0.0-0.4); Lymphocytes Absolute Auto 2.8 X10*3/uL (1.2-4.9); Lymphocytes Percent Auto 37.2 % (20-40); Mean Corpuscular HGB Conc 33.1 g/dl (31.0-35.0); Mean Corpuscular Hemoglobin 30.8 pg (27.0-33.0); Mean Platelet Volume 9.6 fL (9.4-12.3); Monocytes Absolute Auto 0.6 X10*3/uL (0.1-1.2); Monocytes Percent Auto 8.2 % (2-11); Neutrophils Absolute Auto 3.9 x10*3/uL (2.0-8.3); Neutrophils Percent Auto 52.2 % (45-73); Platelet Count 258 X10*3/uL (160-400); Red Blood Count 4.58 X10*6/uL (4.20-5.50); Red Cell Distribution Width 13.7 % (11.0-16.0); White Blood Count 7.4 X10*3/uL (4.8-10.8)
[2022-02-01] MEDS: 0.9 % Sodium Chloride 1,000 ML 999 ML IV (10:11)
[2022-02-01] MEDS: oxyCODONE HCl Immed Release 5 MG TABLET PO (10:24)
[2022-02-01 10:28] LABS: Bacteria Urine None Seen (None Seen); Hyaline Casts Urine 0-2 /LPF (0-2); RBC Urine 0-2 /HPF (0-2); Squamous Epithelial Cell Urine 0-2 /HPF (0-2); UACC Culture Trigger YES; WBC Urine 0-5 /HPF (0-5)
[2022-02-01 12:32] VITALS: BP 143/85; PULSE 67; RESP 16; O2SAT 98
[2022-02-01 12:51] LABS: Alanine Aminotransferase 18 U/L (0-31); Albumin Level 4.1 g/dL (3.5-5.0); Alkaline Phosphatase 93 U/L (39-117); Anion Gap 10 (12-20); Aspartate Amino Transferase 18 U/L (5-31); Bilirubin Direct < 0.2 mg/dL (0.0-0.5); Bilirubin Total 0.3 mg/dL (0.0-1.0); Blood Urea Nitrogen 11 mg/dL (9-16); Calcium 9.1 mg/dL (8.4-10.2); Carbon Dioxide 27 mmol/L (22-29); Chloride 109 mmol/L (96-108); Creatinine Clr Calc Pharmacy 77.8; Estimated Glomerular Filt Rate > 60; Glucose Random 136 mg/dL (60-115); Potassium 3.7 mmol/L (3.3-5.1); Sodium 142 mmol/L (135-145); Total Protein 6.5 g/dL (6.5-8.0)
== END 2022-02-01 13:22 | disposition home or self-care (01) ==
PROVIDERS: Physician Assistant; Emergency Provider Student in an Organized Health Care Education/Training Program; PCP Nurse Practitioner Primary Care
DX: N39.0 Urinary tract infection, site not specified (principal); M54.50 Low back pain, unspecified; I10 Essential (primary) hypertension; E11.9 Type 2 diabetes mellitus without complications; E78.5 Hyperlipidemia, unspecified; Z79.4 Long term (current) use of insulin; Z79.02 Long term (current) use of antithrombotics/antiplatelets; Z79.899 Other long term (current) drug therapy
CPT/HCPCS: 36415; 74176; 80048; 80076; 81001; 83735; 85025; 87086; 96360; 96361; 99284

== ENCOUNTER 2022-02-13 09:57 | Outpatient (REF) | payer OTHER, SELFPAY | END 2022-02-13 09:58 | disposition home or self-care (01) | LOC: HO.MDS 09:57 | PROVIDERS: Visit Provider Internal Medicine Pulmonary Disease | DX: J45.50 Severe persistent asthma, uncomplicated (principal) | CPT/HCPCS: 96372; J2357 ==

== ENCOUNTER 2022-02-22 17:33 | Emergency (ER) | payer OTHER, SELFPAY ==
--- NOTE | 2022-02-22 | ECG_ITS ---
Test Reason : chest pain Blood Pressure : / mmHG Vent. Rate : 096 BPM Atrial Rate : 096 BPM P-R Int : 214 ms QRS Dur : 090 ms QT Int : 368 ms P-R-T Axes : 049 -46 039 degrees QTc Int : 464 ms Sinus rhythm with 1st degree A-V block Left anterior fascicular block Minimal voltage criteria for LVH, may be normal variant ( Bala product ) Abnormal ECG When compared with ECG of 28-OCT-2021 12:10, No significant change was found Referred By: Generic ED Physician Electronically Signed By:LIVE YANEZ
--- NOTE | ~2022-02-22 | XR_ITS ---
EXAMINATION: XR CHEST CLINICAL INFORMATION: Shortness of breath with chest pain COMPARISON: 10/28/2021 TECHNIQUE: Frontal view of the chest was obtained. FINDINGS: No acute finding. Lung khan comparable to previous. No obvious failure or infiltrate. There is no effusion. The cardiac silhouette is within normal limits. XR/XR chest 1V IMPRESSION: No acute finding.
[2022-02-22 17:47] VITALS: BP 117/78; PULSE 101; RESP 20; TEMP 36.9; O2SAT 94; BMI 36.6
[2022-02-22 18:07] LABS: MANUAL DIFF FLAG NO
--- NOTE | 2022-02-22 18:07 | ED_ITS ---
HPI - Chest Pain General Chief Complaint: Chest Pain Stated Complaint: Chest pain/+Covid Time Seen by Provider: 02/22/22 18:07 Source: patient Mode of arrival: ambulatory Limitations: no limitations History of Present Illness HPI narrative: 61-year-old female presents with 4 days of chest pain, shortness of breath, body aches, cough, intermittent fevers and weakness. She did test positive for COVID at home, and she would like a COVID test at this time. MD complaint: chest discomfort Pertinent past history: asthma Onset (ago): day(s) (4) Timing of current episode: constant Prior episodes: Yes Onset: during rest Pain location: substernal, left chest and right chest Pain radiation: none Severity: moderate Pain scale (0-10): 5 Quality: tightness and aching Relieving factors: nothing Exacerbating factors: exertion Context: recent illness Associated symptoms: dyspnea, fever and cough Treatment prior to arrival: none Risk Factors Coronary artery disease risk factors: diabetes, hyperlipidemia and hypertension Thoracic aortic dissection risk factors: none Related Data On Oral Contraceptives: No Home Medications Medication Instructions Recorded Confirmed amlodipine 10 mg tablet 10 mg PO BEDTIME 11/20/19 01/24/22 blood sugar diagnostic #10 ea 11/20/19 01/24/22 blood-glucose meter #1 ea 11/20/19 01/24/22 calcium carbonate 600 mg-vitamin 1 tab PO BID 11/20/19 01/24/22 D3 10 mcg (400 unit) tablet cetirizine 10 mg tablet 10 mg PO BEDTIME 11/20/19 01/24/22 lancets 33 gauge #100 ea 11/20/19 01/24/22 potassium chloride 20 mEq 20 meq PO BID 11/20/19 01/24/22 tablet,extended release(part/cryst) risperidone 0.5 mg tablet 0.5 mg PO BID 11/20/19 01/24/22 zolpidem 10 mg tablet 10 mg PO BEDTIME PRN Insomnia 11/20/19 01/24/22 clonazepam 1 mg tablet (Klonopin) 1 mg PO DAILY 03/08/20 01/24/22 montelukast 10 mg tablet 10 mg PO BEDTIME 03/08/20 01/24/22 fluticasone 250 mcg-salmeterol 50 1 ea inhalation BID 06/29/21 01/24/22 mcg/dose blistr powdr for inhalation ipratropium 20 mcg-albuterol 100 1 puff inhalation QID 06/29/21 01/24/22 mcg/actuation mist for inhalation (Combivent Respimat) ipratropium 0.5 mg-albuterol 3 mg 3 ml inhalation Q6H PRN 07/06/21 01/24/22 (2.5 mg base)/3 mL nebulization Respiratory Distress soln multivitamin-ferrous 1 tab PO DAILY 07/06/21 01/24/22 fumarate-folic acid 18 mg-400 mcg tablet (Certavite-Antioxidant) fluoride (sodium) 1.1 % dental appl PO 10/16/21 01/24/22 cream (SF 5000 Plus) enalapril maleate 20 mg tablet 20 mg PO DAILY 01/24/22 01/24/22 buspirone 7.5 mg tablet 7.5 mg PO BID 01/31/22 dulaglutide 0.75 mg/0.5 mL mg subcut QWEEK 01/31/22 subcutaneous pen injector (Trulicity) emtricitabine 200 mg-tenofovir 1 tab PO DAILY 01/31/22 disoproxil fumarate 300 mg tablet levofloxacin 500 mg tablet 500 mg PO DAILY 01/31/22 lidocaine 5 % topical patch 1 patch topical DAILY 01/31/22 metformin 500 mg tablet,extended 500 mg PO QPM 01/31/22 release 24 hr sennosides 8.6 mg tablet (senna) 17.2 mg PO BEDTIME constipation 01/31/22 tramadol 50 mg tablet 50 mg PO BID PRN 01/31/22 Previous Rx's Medication Instructions Recorded leg brace (Knee Support Brace) #2 ea 03/08/20 albuterol sulfate 90 mcg/actuation 2 puff inhalation Q4-6H PRN 09/29/20 aerosol inhaler shortness of breath or wheezing #6.7 grams sennosides 8.6 mg capsule (senna) 17.2 mg PO BEDTIME constipation 30 03/19/21 days #60 caps tiotropium bromide 18 mcg capsule 1 cap inhalation DAILY #30 caps 08/07/21 with inhalation device (Spiriva with HandiHaler) omalizumab 150 mg/mL subcutaneous 300 mg (2 mL) subcut Q2W #4 mL 08/31/21 syringe (Xolair) acetaminophen 500 mg tablet 1,000 mg PO Q8-10H PRN pain 7 days 09/05/21 (Tylenol Extra Strength) #42 tabs pen needle, diabetic 32 gauge x #100 ea 10/11/21 (BD Lorna 2nd Gen Pen Needle) gabapentin 400 mg capsule 400 mg PO BEDTIME #30 caps 10/15/21 levothyroxine 75 mcg tablet 75 mcg PO QAM #90 tabs 10/16/21 insulin aspart 6 unit subcut TID #15 mL 12/14/21 (niacinamide)(U-100) 100 unit/mL(3 mL) subcutaneous pen (Fiasp FlexTouch U-100 Insulin) bisacodyl 5 mg tablet,delayed See Rx Instructions PO BEDTIME 30 12/27/21 release (Dulcolax (bisacodyl)) days #90 tabs docusate sodium 100 mg capsule 100 mg PO BID 30 days #60 caps 12/27/21 omeprazole 20 mg capsule,delayed 20 mg PO BID@0630,1630 #60 caps 12/27/21 release Lactobacil rhamnosus GG 10 billion 1 cap PO DAILY #30 caps 01/02/22 cell-inulin 200 mg sprinkle capsule ([facility]) atorvastatin 80 mg tablet 80 mg PO BEDTIME #30 tabs 01/02/22 prednisone 10 mg tablet 40 mg PO DAILY 7 days #28 tabs 01/23/22 semaglutide 0.25 mg or 0.5 mg (2 0.5 mg (0.4 mL) subcut QWEEK #1.5 01/24/22 mg/1.5 mL) subcutaneous pen mL injector (Ozempic) metoclopramide HCl 10 mg tablet 10 mg PO TID #90 tabs 01/31/22 (Reglan) peg 3350-electrolytes 236 240 ml PO Q10M 1 day #4,000 mL 01/31/22 gram-22.74 gram-6.74 gram-5.86 gram solution (Golytely) plecanatide 3 mg tablet (Trulance) 3 mg PO DAILY 30 days #30 tabs 01/31/22 cefuroxime axetil 250 mg tablet 250 mg PO BID 7 days #14 tabs 02/01/22 dextrose 40 % oral gel (Glutose-15) 15 g PO DIRECTED for 02/06/22 hypoglycemia #112.5 grams prednisone 20 mg tablet 40 mg PO DAILY 5 days #10 tabs 02/22/22 Allergies Allergy/AdvReac Type Severity Reaction Status Date / Time aspirin [Aspirin] Allergy Mild ITCHY Verified 01/31/22 14:40 THROAT azithromycin Allergy Unknown Unknown Verified 01/31/22 14:40 naproxen Allergy Unknown Unknown Verified 01/31/22 14:40 simvastatin Allergy Unknown Unknown Verified 01/31/22 14:40 Fish Containing Products Allergy Swelling Verified 01/31/22 14:40 onion [ONION] AdvReac Mild RED FACE Verified 01/31/22 14:40 Review of Systems Review of Systems: Constitutional: positive Fever, positive Chills, positive fatigue, positive Malaise ENT/Mouth: positive sore throat, positive runny nose Eyes: No Discharge Cardiovascular: Positive Chest Pain, positive SOB Respiratory: Positive Cough, No Sputum, No Wheezing, No Dyspnea Gastrointestinal: No Nausea, No Vomiting, No Diarrhea Musculoskeletal: positive Myalgia Skin: No rash Neuro: Positive Headache Yes all other systems are reviewed and are negative PMFSH Past Medical History Attestation statement: The following information was validated with the patient. Source: old records reviewed Medical History Allergic rhinitis Anxiety and depression Bronchitis Chest pain Cocaine abuse COPD exacerbation Diabetes DVT (deep venous thrombosis) Fibromyalgia HTN (hypertension) Hypothyroidism Low vitamin D level Non-toxic multinodular goiter PTSD (post-traumatic stress disorder) Renal calculi Spondylosis of cervical region without myelopathy or radiculopathy UTI (urinary tract infection) Vertigo Surgical History H/O colonoscopy with polypectomy History of esophagogastroduodenoscopy (EGD) History of hysterectomy History of lithotripsy History of selective injection of anesthetic agent around lumbar nerve root Hx of right breast biopsy Family History Family History Father No problems noted. 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 Oriented X3. No acute distress. Eyes: Pupils equal, round and reactive to light. ENT: Pharynx normal. Neck: Normal inspection. Neck supple. CVS: Tachycardic heart rate and rhythm. Apical pulse equal pulses to extremities. Respiratory: No respiratory distress. Expiratory wheezing. Abdomen: Soft and nontender. Obese. Skin: Skin warm and dry. Normal skin color. Normal skin turgor. Extremities: No lower extremity edema. Gait well-balanced well coordinated. Neuro: No motor deficit. No sensory deficit. Cranial nerves 2-12 intact. Course Course Course Narrative: 61-year-old female presents with upper respiratory symptoms with a positive COVID test. She has had out these symptoms for approximately 4 days which includes chest pain, shortness breath, body aches, cough, and intermittent fevers. Will repeat COVID testing, chest x-ray is negative for acute findings requiring emergent intervention, labs are unremarkable. Will order respiratory albuterol. EKG is normal sinus, no indication of ST elevation or depression, troponins are negative. Low likelihood of ACS at this time. No indication of pneumonia. Plan of care is to discharge home with supportive measures. Patient's O2 sats were maintained above 98% on room air, patient is able to ambulate without difficulty. facility maintenance helper utilized for all correspondence. Patient verbalized understanding of and agrees plan of care discharge home. Verbalized understanding of signs and symptoms indicating need for emergent intervention. Medications Administered Discontinued Medications Generic Name Dose Route Start Last Admin Trade Name Freq PRN Reason Stop Dose Admin Acetaminophen 650 mg 02/22/22 18:08 02/22/22 19:01 Acetaminophen 325 Mg Tablet PO 02/22/22 18:09 650 mg ONCE ONE Administration Albuterol Sulfate 2.5 mg/ 5 mg 02/22/22 20:41 02/22/22 20:45 Albuterol Sulfate 2.5 mg INHALE 02/22/22 20:42 5 mg ONCE ONE Administration Medical Decision Making Differential Diagnosis Differential Diagnoses: The differential diagnosis associated with the presentation includes ACS, pneumonia, COVID, RSV, influenza Admission/Observation Consideration of admission/observation: Escalation of care including admission/observation considered If patient becomes hypoxic, or has grossly abnormal lab values will consider admission Lab Data MDM Lab Attestation statement: I reviewed the patient's lab results. 02/22/22 18:02 02/22/22 18:02 Labs: Lab Results 02/22/22 02/22/22 02/22/22 Range/Units 18:02 18:02 18:02 WBC 6.4 (4.8-10.8) X10*3/uL RBC 4.36 (4.20-5.50) X10*6/uL Hgb 13.5 (12.0-16.0) g/dl Hct 40.1 (37.0-47.0) % MCV 92.0 (80.0-98.0) fL MCH 31.0 (27.0-33.0) pg MCHC 33.7 (31.0-35.0) g/dl RDW 13.5 (11.0-16.0) % Plt Count 309 (160-400) X10*3/uL MPV 9.5 (9.4-12.3) fL Immature Gran % (Auto) 0.2 (0.0-0.4) % Neut % (Auto) 45.6 (45-73) % Lymph % (Auto) 44.4 H (20-40) % [place] % (Auto) 7.1 (2-11) % Eos % (Auto) 2.2 (0-4) % Baso % (Auto) 0.5 (0-2) % Lymph # (Auto) 2.9 (1.2-4.9) X10*3/uL [place] # (Auto) 0.5 (0.1-1.2) X10*3/uL Eos # (Auto) 0.1 (0.0-0.4) X10*3/uL Baso # (Auto) 0.0 (0.0-0.2) X10*3/uL Abs Immat Gran (auto) 0.01 (0.00-0.03) X10*3/uL Absolute Neuts (auto) 2.9 (2.0-8.3) x10*3/uL Absolute Nucleated RBC 0.000 (0.0-0.012) X10*3/uL Nucleated RBC % (auto) 0.0 (0.0-0.2) /100WBC Sodium 142 (135-145) mmol/L Potassium 4.0 (3.3-5.1) mmol/L Chloride 112 H (96-108) mmol/L Carbon Dioxide 21 L (22-29) mmol/L Anion Gap 13 (12-20) BUN 13 (9-16) mg/dL Creatinine 0.92 (0.5-1.4) mg/dL Estim Creat Clear Calc 69.9 Estimated GFR > 60 Random Glucose 166 H (60-115) mg/dL Calcium 9.3 (8.4-10.2) mg/dL Troponin I High Sens < 3.5 (<3.5-17.0) ng/L COVID-19 (DONALD) (Negative) COVID-19 Clin Com Influenza Type A (MAGDALENE) (Negative) Influenza Type B (MAGDALENE) (Negative) Influenza A & B Note 02/22/22 02/22/22 Range/Units 18:02 18:26 WBC (4.8-10.8) X10*3/uL RBC (4.20-5.50) X10*6/uL Hgb (12.0-16.0) g/dl Hct (37.0-47.0) % MCV (80.0-98.0) fL MCH (27.0-33.0) pg MCHC (31.0-35.0) g/dl RDW (11.0-16.0) % Plt Count (160-400) X10*3/uL MPV (9.4-12.3) fL Immature Gran % (Auto) (0.0-0.4) % Neut % (Auto) (45-73) % Lymph % (Auto) (20-40) % [place] % (Auto) (2-11) % Eos % (Auto) (0-4) % Baso % (Auto) (0-2) % Lymph # (Auto) (1.2-4.9) X10*3/uL [place] # (Auto) (0.1-1.2) X10*3/uL Eos # (Auto) (0.0-0.4) X10*3/uL Baso # (Auto) (0.0-0.2) X10*3/uL Abs Immat Gran (auto) (0.00-0.03) X10*3/uL Absolute Neuts (auto) (2.0-8.3) x10*3/uL Absolute Nucleated RBC (0.0-0.012) X10*3/uL Nucleated RBC % (auto) (0.0-0.2) /100WBC Sodium (135-145) mmol/L Potassium (3.3-5.1) mmol/L Chloride (96-108) mmol/L Carbon Dioxide (22-29) mmol/L Anion Gap (12-20) BUN (9-16) mg/dL Creatinine (0.5-1.4) mg/dL Estim Creat Clear Calc Estimated GFR Random Glucose (60-115) mg/dL Calcium (8.4-10.2) mg/dL Troponin I High Sens (<3.5-17.0) ng/L COVID-19 (DONALD) Positive A (Negative) COVID-19 Clin Com See Note Influenza Type A (MAGDALENE) Negative (Negative) Influenza Type B (MAGDALENE) Negative (Negative) Influenza A & B Note See Note Independent Interpretation I performed an independent interpretation of an: EKG and Plain X-Ray Interpretation: Vent. rate 96 BPM CA interval 214 ms QRS duration 90 ms QT/QTc 368/464 ms P-R-T axes 49 -46 39 Sinus rhythm with 1st degree A-V block Left anterior fascicular block Minimal voltage criteria for LVH, may be normal variant ( [place] product ) Abnormal ECG When compared with ECG of 28-OCT-2021 12:10, No significant change was found 22-FEB-2022 17:36:19 Radiology Impression Discussion of test interpretation with radiology: I have reviewed the radiologist's reading. Radiologist Impression: EXAMINATION: XR CHEST CLINICAL INFORMATION: Shortness of breath with chest pain COMPARISON: 10/28/2021 TECHNIQUE: Frontal view of the chest was obtained. FINDINGS: No acute finding. Lung khan comparable to previous. No obvious failure or infiltrate. There is no effusion. The cardiac silhouette is within normal limits. XR/XR chest 1V IMPRESSION: No acute finding. ? External Record Review External record reviewed: Outpatient record and Prior outpatient labs Chronic Conditions Patient?s care impacted by: Diabetes and Hypertension Discharge Plan Discharge Clinical Impression: COVID-19 Patient Disposition: Home, Self-Care Instructions: Covid-19 Viral Syndrome and Novel Coronavirus (ED) Hey/Ath, COVID-19 (Coronavirus Disease 2019) (ED) Additional Instructions: You tested positive for COVID. Rest. Drink plenty of fluids. Alternate Tylenol 650 mg every 6 hours and Motrin 600 mg every 6 hours as needed for fever and pain management. Write down what time you take these medications to prevent accidental overdose. Take prednisone 40 mg for the next 5 days. Start this medication tomorrow, 02/23/2022. We did your 1st dose in the emergency department. Use your albuterol inhaler and albuterol nebulizer treatments as needed for shortness of breath. Thank you for choosing this emergency department for evaluation. Please follow-up with primary care physician as needed. Return to the emergency department for any new, concerning, or worsening symptoms. Prescriptions: New prednisone 20 mg tablet 40 mg PO DAILY 5 Days Qty: 10 0RF No Action Spiriva with HandiHaler 18 mcg capsule, w/inhalation device 1 cap inhalation DAILY Qty: 30 6RF Xolair 150 mg/mL syringe 300 mg subcut Q2W Qty: 4 11RF (DME) pen needle, diabetic [BD Lorna 2nd Gen Pen Needle] 32 gauge x needle See Rx Instructions .Route Qty: 100 5RF Rx Instructions: injects 4 X/day gabapentin 400 mg capsule 400 mg PO BEDTIME Qty: 30 4RF levothyroxine 75 mcg tablet 75 mcg PO QAM Qty: 90 1RF Fiasp FlexTouch U-100 Insulin 100 unit/mL (3 mL) insulin pen 6 unit subcut TID Qty: 15 5RF atorvastatin 80 mg tablet 80 mg PO BEDTIME Qty: 30 4RF [facility] 10 billion cell -200 mg capsule, sprinkle 1 cap PO DAILY Qty: 30 6RF dextrose [Glutose-15] 40 % gel 15 g PO DIRECTED Qty: 112.5 5RF albuterol sulfate 90 mcg/actuation HFA aerosol inhaler 2 puff inhalation Q4-6H PRN (Reason: shortness of breath or wheezing) Qty: 6.7 0RF ipratropium-albuterol 0.5 mg-3 mg(2.5 mg base)/3 mL Solution For Nebulization 3 ml INHALATION Q6H PRN (Reason: Respiratory Distress) Certavite-Antioxidant 18-400 mg-mcg Tablet 1 tab PO DAILY acetaminophen [Tylenol Extra Strength] 500 mg tablet 1,000 mg PO Q8-10H PRN (Reason: pain) 7 Days Qty: 42 0RF cefuroxime axetil 250 mg tablet 250 mg PO BID 7 Days Qty: 14 0RF montelukast 10 mg tablet 10 mg PO BEDTIME clonazepam [Klonopin] 1 mg tablet 1 mg PO DAILY Rx Instructions: administer 30 minutes before bedtime (DME) Knee Support Brace Misc See Rx Instructions .ROUTE .MEDSUPPLY Qty: 2 0RF Rx Instructions: As directed senna 8.6 mg capsule 17.2 mg PO BEDTIME 30 Days Qty: 60 6RF zolpidem 10 mg tablet 10 mg PO BEDTIME PRN (Reason: Insomnia) risperidone 0.5 mg tablet 0.5 mg PO BID amlodipine 10 mg tablet 10 mg PO BEDTIME (DME) lancets 33 gauge misc See Rx Instructions Not Applicable DAILY Qty: 100 Rx Instructions: As directed (DME) FreeStyle Lite Strips Strip See Rx Instructions Not Applicable DAILY Qty: 10 Rx Instructions: As directed calcium carbonate-vitamin D3 600 mg(1,500mg) -400 unit tablet 1 tab PO BID potassium chloride 20 mEq tablet,ER particles/crystals 20 meq PO BID cetirizine 10 mg tablet 10 mg PO BEDTIME (DME) blood-glucose meter Kit See Rx Instructions .ROUTE DAILY Qty: 1 Rx Instructions: As directed Combivent Respimat 20-100 mcg/actuation mist 1 puff inhalation QID fluticasone propion-salmeterol 250-50 mcg/dose blister with device 1 ea inhalation BID enalapril maleate 20 mg tablet 20 mg PO DAILY Ozempic 0.25 mg or 0.5 mg(2 mg/1.5 mL) pen injector 0.5 mg subcut QWEEK Qty: 1.5 5RF prednisone 10 mg tablet 40 mg PO DAILY 7 Days Qty: 28 0RF omeprazole 20 mg capsule,delayed release(DR/EC) 20 mg PO BID@0630,1630 Qty: 60 6RF bisacodyl [Dulcolax (bisacodyl)] 5 mg tablet,delayed release (DR/EC) See Rx Instructions PO BEDTIME 30 Days Qty: 90 6RF Rx Instructions: 2 tabs qhs and 1 qam orally bedtime; docusate sodium 100 mg capsule 100 mg PO BID 30 Days Qty: 60 6RF fluoride (sodium) [SF 5000 Plus] 1.1 % cream PO buspirone 7.5 mg tablet 7.5 mg PO BID lidocaine 5 % adhesive patch,medicated 1 patch topical DAILY tramadol 50 mg tablet 50 mg PO BID PRN sennosides [senna] 8.6 mg tablet 17.2 mg PO BEDTIME levofloxacin 500 mg tablet 500 mg PO DAILY Trulicity 0.75 mg/0.5 mL pen injector subcut QWEEK metformin 500 mg tablet extended release 24 hr 500 mg PO QPM emtricitabine-tenofovir (TDF) 200-300 mg tablet 1 tab PO DAILY peg 3350-electrolytes [Golytely] 236-22.74-6.74 -5.86 gram recon soln 240 ml PO Q10M 1 Days Qty: 4000 0RF Rx Instructions: until fecal effluent is clear; do not exceed a total volume of 2,000 mL metoclopramide HCl [Reglan] 10 mg tablet 10 mg PO TID Qty: 90 6RF Trulance 3 mg tablet 3 mg PO DAILY 30 Days Qty: 30 6RF Rx Instructions: Take one tablet by mouth once a day Interventions: ED Discharge Assessment Last Done: 02/22/22 22:18 Discharge Date/Time: 02/22/22 22:17
[2022-02-22 18:08] VITALS: PULSE 93
[2022-02-22 18:14] VITALS: BP 115/85; PULSE 89; RESP 18; TEMP 36.7; O2SAT 95
[2022-02-22 18:17] LABS: Basophils Percent Auto 0.5 % (0-2); Eosinophils Absolute Auto 0.1 X10*3/uL (0.0-0.4); Eosinophils Percent Auto 2.2 % (0-4); Hematocrit 40.1 % (37.0-47.0); Hemoglobin 13.5 g/dl (12.0-16.0); Imm Gran Abs Auto 0.01 X10*3/uL (0.00-0.03); Imm Gran Pct Auto 0.2 % (0.0-0.4); Lymphocytes Absolute Auto 2.9 X10*3/uL (1.2-4.9); Lymphocytes Percent Auto 44.4 % (20-40); Mean Corpuscular HGB Conc 33.7 g/dl (31.0-35.0); Mean Platelet Volume 9.5 fL (9.4-12.3); Monocytes Absolute Auto 0.5 X10*3/uL (0.1-1.2); Monocytes Percent Auto 7.1 % (2-11); Neutrophils Absolute Auto 2.9 x10*3/uL (2.0-8.3); Neutrophils Percent Auto 45.6 % (45-73); Platelet Count 309 X10*3/uL (160-400); Red Blood Count 4.36 X10*6/uL (4.20-5.50); Red Cell Distribution Width 13.5 % (11.0-16.0); White Blood Count 6.4 X10*3/uL (4.8-10.8)
[2022-02-22 18:22] LABS: COVID-19 Test Positive (Negative); IDNOW Serial# 6674DD1D
[2022-02-22 18:32] LABS: Anion Gap 13 (12-20); Blood Urea Nitrogen 13 mg/dL (9-16); Calcium 9.3 mg/dL (8.4-10.2); Carbon Dioxide 21 mmol/L (22-29); Chloride 112 mmol/L (96-108); Creatinine Clr Calc Pharmacy 69.9; Estimated Glomerular Filt Rate > 60; Glucose Random 166 mg/dL (60-115); Sodium 142 mmol/L (135-145)
[2022-02-22 18:40] LABS: Troponin-I High Sensitivity < 3.5 ng/L (<3.5-17.0)
[2022-02-22 18:57] LABS: IDNOW Serial# 16C4AD1C; Influenza A Negative (Negative); Influenza B2 Negative (Negative)
[2022-02-22] MEDS: Acetaminophen 325 MG TABLET 650 MG PO (19:01)
--- NOTE | 2022-02-22 20:30 | PC.NURSE ---
Assumed care of patient, pt alert and oriented, c/o headache, pt states chest pain has resolved.
[2022-02-22 20:32] VITALS: BP 154/90; PULSE 74; RESP 18; TEMP 36.5; O2SAT 99
[2022-02-22] MEDS: Albuterol Sulfate 2.5 MG, Albuterol Sulfate (0.083%) 2.5 MG 5 MG INHALE (20:45)
[2022-02-22 20:48] VITALS: PULSE 71; RESP 18; O2SAT 95
--- NOTE | 2022-02-22 22:18 | PC.NURSE ---
Discharge instructions given to patient and explained to pt; ambulates safely and independently; no apparent distress; speaking in full sentences (no respiratory distress)
== END 2022-02-22 22:17 | disposition home or self-care (01) ==
PROVIDERS: Nurse Practitioner Family; Emergency Provider Emergency Medicine; PCP Nurse Practitioner Primary Care
DX: U07.1 COVID-19 (principal); R07.89 Other chest pain; E11.9 Type 2 diabetes mellitus without complications; I10 Essential (primary) hypertension; Z79.899 Other long term (current) drug therapy
CPT/HCPCS: 71045; 80048; 84484; 85025; 87502; 87635; 93005; 94640; 99283; 99284; 99285

== ENCOUNTER 2022-02-28 11:38 | Emergency (ER) | payer OTHER, SELFPAY ==
--- NOTE | ~2022-02-28 | XR_ITS ---
EXAMINATION: XR CHEST CLINICAL INFORMATION: Shortness of breath and chest pain. COMPARISON: 09/08/2021 and 02/22/2022 TECHNIQUE: 2 views of the chest were obtained. FINDINGS: Lungs are mildly hypoinflated. Linear opacity of atelectasis or focal scarring at the left lateral base. No airspace disease or pleural effusion. Cardiac silhouette is normal in size. The hilar contours are normal. Atherosclerotic calcification of the thoracic aorta. The visualized bones are intact. Left diaphragm is chronically, mildly elevated. XR/XR chest 2V IMPRESSION: 1. No evidence of pneumonia. No acute pulmonary disease compared to 09/08/2021. 2. Linear opacity of atelectasis or focal scarring at the left lateral base.
--- NOTE | 2022-02-28 11:48 | ED.CHESTPAIN ---
HPI - Chest Pain General Chief Complaint: General Medical Stated Complaint: chest pain Time Seen by Provider: 02/28/22 13:14 Related Data Home Medications Medication Instructions Recorded Confirmed amlodipine 10 mg tablet 10 mg PO BEDTIME 11/20/19 01/24/22 blood sugar diagnostic #10 ea 11/20/19 01/24/22 blood-glucose meter #1 ea 11/20/19 01/24/22 calcium carbonate 600 mg-vitamin 1 tab PO BID 11/20/19 01/24/22 D3 10 mcg (400 unit) tablet cetirizine 10 mg tablet 10 mg PO BEDTIME 11/20/19 01/24/22 lancets 33 gauge #100 ea 11/20/19 01/24/22 potassium chloride 20 mEq 20 meq PO BID 11/20/19 01/24/22 tablet,extended release(part/cryst) risperidone 0.5 mg tablet 0.5 mg PO BID 11/20/19 01/24/22 zolpidem 10 mg tablet 10 mg PO BEDTIME PRN Insomnia 11/20/19 01/24/22 clonazepam 1 mg tablet (Klonopin) 1 mg PO DAILY 03/08/20 01/24/22 montelukast 10 mg tablet 10 mg PO BEDTIME 03/08/20 01/24/22 fluticasone 250 mcg-salmeterol 50 1 ea inhalation BID 06/29/21 01/24/22 mcg/dose blistr powdr for inhalation ipratropium 20 mcg-albuterol 100 1 puff inhalation QID 06/29/21 01/24/22 mcg/actuation mist for inhalation (Combivent Respimat) ipratropium 0.5 mg-albuterol 3 mg 3 ml inhalation Q6H PRN 07/06/21 01/24/22 (2.5 mg base)/3 mL nebulization Respiratory Distress soln multivitamin-ferrous 1 tab PO DAILY 07/06/21 01/24/22 fumarate-folic acid 18 mg-400 mcg tablet (Certavite-Antioxidant) fluoride (sodium) 1.1 % dental appl PO 10/16/21 01/24/22 cream (SF 5000 Plus) enalapril maleate 20 mg tablet 20 mg PO DAILY 01/24/22 01/24/22 buspirone 7.5 mg tablet 7.5 mg PO BID 01/31/22 dulaglutide 0.75 mg/0.5 mL mg subcut QWEEK 01/31/22 subcutaneous pen injector (Trulicity) emtricitabine 200 mg-tenofovir 1 tab PO DAILY 01/31/22 disoproxil fumarate 300 mg tablet lidocaine 5 % topical patch 1 patch topical DAILY 01/31/22 metformin 500 mg tablet,extended 500 mg PO QPM 01/31/22 release 24 hr sennosides 8.6 mg tablet (senna) 17.2 mg PO BEDTIME constipation 01/31/22 tramadol 50 mg tablet 50 mg PO BID PRN 01/31/22 Previous Rx's Medication Instructions Recorded leg brace (Knee Support Brace) #2 ea 03/08/20 albuterol sulfate 90 mcg/actuation 2 puff inhalation Q4-6H PRN 09/29/20 aerosol inhaler shortness of breath or wheezing #6.7 grams sennosides 8.6 mg capsule (senna) 17.2 mg PO BEDTIME constipation 30 03/19/21 days #60 caps tiotropium bromide 18 mcg capsule 1 cap inhalation DAILY #30 caps 08/07/21 with inhalation device (Spiriva with HandiHaler) omalizumab 150 mg/mL subcutaneous 300 mg (2 mL) subcut Q2W #4 mL 08/31/21 syringe (Xolair) acetaminophen 500 mg tablet 1,000 mg PO Q8-10H PRN pain 7 days 09/05/21 (Tylenol Extra Strength) #42 tabs pen needle, diabetic 32 gauge x #100 ea 10/11/21 (BD Lorna 2nd Gen Pen Needle) gabapentin 400 mg capsule 400 mg PO BEDTIME #30 caps 10/15/21 levothyroxine 75 mcg tablet 75 mcg PO QAM #90 tabs 10/16/21 insulin aspart 6 unit subcut TID #15 mL 12/14/21 (niacinamide)(U-100) 100 unit/mL(3 mL) subcutaneous pen (Fiasp FlexTouch U-100 Insulin) bisacodyl 5 mg tablet,delayed See Rx Instructions PO BEDTIME 30 12/27/21 release (Dulcolax (bisacodyl)) days #90 tabs docusate sodium 100 mg capsule 100 mg PO BID 30 days #60 caps 12/27/21 omeprazole 20 mg capsule,delayed 20 mg PO BID@0630,1630 #60 caps 12/27/21 release Lactobacil rhamnosus GG 10 billion 1 cap PO DAILY #30 caps 01/02/22 cell-inulin 200 mg sprinkle capsule ([facility] [employer] [facility]) atorvastatin 80 mg tablet 80 mg PO BEDTIME #30 tabs 01/02/22 prednisone 10 mg tablet 40 mg PO DAILY 7 days #28 tabs 01/23/22 semaglutide 0.25 mg or 0.5 mg (2 0.5 mg (0.4 mL) subcut QWEEK #1.5 01/24/22 mg/1.5 mL) subcutaneous pen mL injector (Ozempic) metoclopramide HCl 10 mg tablet 10 mg PO TID #90 tabs 01/31/22 (Reglan) peg 3350-electrolytes 236 240 ml PO Q10M 1 day #4,000 mL 01/31/22 gram-22.74 gram-6.74 gram-5.86 gram solution (Golytely) plecanatide 3 mg tablet (Trulance) 3 mg PO DAILY 30 days #30 tabs 01/31/22 dextrose 40 % oral gel (Glutose-15) 15 g PO DIRECTED for 02/06/22 hypoglycemia #112.5 grams prednisone 20 mg tablet 40 mg PO DAILY 5 days #10 tabs 02/22/22 amoxicillin 875 mg-potassium 1 tab PO BID 7 days #14 tabs 02/25/22 clavulanate 125 mg tablet blood-glucose meter (FreeStyle #1 ea 02/28/22 Flash System kit) lancets 28 gauge (FreeStyle #100 ea 02/28/22 Lancets) Allergies Allergy/AdvReac Type Severity Reaction Status Date / Time aspirin [Aspirin] Allergy Mild ITCHY Verified 01/31/22 14:40 THROAT azithromycin Allergy Unknown Unknown Verified 01/31/22 14:40 naproxen Allergy Unknown Unknown Verified 01/31/22 14:40 simvastatin Allergy Unknown Unknown Verified 01/31/22 14:40 Fish Containing Products Allergy Swelling Verified 01/31/22 14:40 onion [ONION] AdvReac Mild RED FACE Verified 01/31/22 14:40 [facility] Past Medical History Medical History Allergic rhinitis Anxiety and depression Bronchitis Chest pain Cocaine abuse COPD exacerbation Diabetes DVT (deep venous thrombosis) Fibromyalgia HTN (hypertension) Hypothyroidism Low vitamin D level Non-toxic multinodular goiter PTSD (post-traumatic stress disorder) Renal calculi Spondylosis of cervical region without myelopathy or radiculopathy UTI (urinary tract infection) Vertigo Surgical History H/O colonoscopy with polypectomy History of esophagogastroduodenoscopy (EGD) History of hysterectomy History of lithotripsy History of selective injection of anesthetic agent around lumbar nerve root Hx of right breast biopsy Family History Family History Father No problems noted. 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 Defer additional HPI, ROS, PE to primary provider. 61-year-old? female with history of HTN, HLD, COPD, diabetes, kidney stones, UTI,? fibromyalgia, depression, anxiety, Mccoy, constipation?here with 1 week of chest pain, shortness of breath, dizziness. COVID + 1/6. Will obtain EKG, labs, CXR, testing for flu/covid/rsv. VSS Medications Administered Discontinued Medications Generic Name Dose Route Start Last Admin Trade Name Freq PRN Reason Stop Dose Admin Lorazepam 0.5 mg 02/28/22 13:34 02/28/22 14:05 Lorazepam 0.5 Mg Tablet PO 02/28/22 13:35 Not Given ONCE ONE Medical Decision Making Lab Data 02/28/22 12:08 01/12/23 12:08 Labs: Lab Results 02/28/22 02/28/22 02/28/22 Range/Units 12:08 12:08 12:08 WBC 7.7 (4.8-10.8) X10*3/uL RBC 4.51 (4.20-5.50) X10*6/uL Hgb 13.9 (12.0-16.0) g/dl Hct 41.9 (37.0-47.0) % MCV 92.9 (80.0-98.0) fL MCH 30.8 (27.0-33.0) pg MCHC 33.2 (31.0-35.0) g/dl RDW 13.5 (11.0-16.0) % Plt Count 279 (160-400) X10*3/uL MPV 9.3 L (9.4-12.3) fL Immature Gran % (Auto) 0.3 (0.0-0.4) % Neut % (Auto) 47.2 (45-73) % Lymph % (Auto) 45.5 H (20-40) % [place] % (Auto) 6.3 (2-11) % Eos % (Auto) 0.4 (0-4) % Baso % (Auto) 0.3 (0-2) % Lymph # (Auto) 3.5 (1.2-4.9) X10*3/uL [place] # (Auto) 0.5 (0.1-1.2) X10*3/uL Eos # (Auto) 0.0 (0.0-0.4) X10*3/uL Baso # (Auto) 0.0 (0.0-0.2) X10*3/uL Abs Immat Gran (auto) 0.02 (0.00-0.03) X10*3/uL Absolute Neuts (auto) 3.7 (2.0-8.3) x10*3/uL Absolute Nucleated RBC 0.000 (0.0-0.012) X10*3/uL Nucleated RBC % (auto) 0.0 (0.0-0.2) /100WBC PT 10.3 (10.0-13.1) SEC INR 0.9 (0.9-1.1) Sodium (135-145) mmol/L Potassium (3.3-5.1) mmol/L Chloride (96-108) mmol/L Carbon Dioxide (22-29) mmol/L Anion Gap (12-20) BUN (9-16) mg/dL Creatinine (0.5-1.4) mg/dL Estim Creat Clear Calc Estimated GFR Random Glucose (60-115) mg/dL Calcium (8.4-10.2) mg/dL Total Bilirubin (0.0-1.0) mg/dL Direct Bilirubin (0.0-0.5) mg/dL AST (5-31) U/L ALT (0-31) U/L Alkaline Phosphatase (39-117) U/L Troponin I High Sens (<3.5-17.0) ng/L Total Protein (6.5-8.0) g/dL Albumin (3.5-5.0) g/dL Influenza Type A (PCR) NEGATIVE (Negative) Influenza Type B (PCR) NEGATIVE (Negative) RSV RNA Qual (PCR) NEGATIVE (Negative) SARS-CoV-2 RNA (RT-PCR) POSITIVE A (Negative) 02/28/22 02/28/22 Range/Units 12:08 12:08 WBC (4.8-10.8) X10*3/uL RBC (4.20-5.50) X10*6/uL Hgb (12.0-16.0) g/dl Hct (37.0-47.0) % MCV (80.0-98.0) fL MCH (27.0-33.0) pg MCHC (31.0-35.0) g/dl RDW (11.0-16.0) % Plt Count (160-400) X10*3/uL MPV (9.4-12.3) fL Immature Gran % (Auto) (0.0-0.4) % Neut % (Auto) (45-73) % Lymph % (Auto) (20-40) % Dade % (Auto) (2-11) % Eos % (Auto) (0-4) % Baso % (Auto) (0-2) % Lymph # (Auto) (1.2-4.9) X10*3/uL Dade # (Auto) (0.1-1.2) X10*3/uL Eos # (Auto) (0.0-0.4) X10*3/uL Baso # (Auto) (0.0-0.2) X10*3/uL Abs Immat Gran (auto) (0.00-0.03) X10*3/uL Absolute Neuts (auto) (2.0-8.3) x10*3/uL Absolute Nucleated RBC (0.0-0.012) X10*3/uL Nucleated RBC % (auto) (0.0-0.2) /100WBC PT (10.0-13.1) SEC INR (0.9-1.1) Sodium 140 (135-145) mmol/L Potassium 3.3 (3.3-5.1) mmol/L Chloride 106 (96-108) mmol/L Carbon Dioxide 24 (22-29) mmol/L Anion Gap 13 (12-20) BUN 14 (9-16) mg/dL Creatinine 0.83 (0.5-1.4) mg/dL Estim Creat Clear Calc 86.3 Estimated GFR > 60 Random Glucose 168 H (60-115) mg/dL Calcium 9.3 (8.4-10.2) mg/dL Total Bilirubin 0.3 (0.0-1.0) mg/dL Direct Bilirubin < 0.2 (0.0-0.5) mg/dL AST 21 (5-31) U/L ALT 18 (0-31) U/L Alkaline Phosphatase 95 (39-117) U/L Troponin I High Sens < 3.5 (<3.5-17.0) ng/L Total Protein 6.7 (6.5-8.0) g/dL Albumin 4.0 (3.5-5.0) g/dL Influenza Type A (PCR) (Negative) Influenza Type B (PCR) (Negative) RSV RNA Qual (PCR) (Negative) SARS-CoV-2 RNA (RT-PCR) (Negative) Discharge Plan Discharge Clinical Impression: COVID-19 Patient Disposition: Home, Self-Care Instructions: COVID-19 (Coronavirus Disease 2019) (ED) Prescriptions: No Action Spiriva with HandiHaler 18 mcg capsule, w/inhalation device 1 cap inhalation DAILY Qty: 30 6RF Xolair 150 mg/mL syringe 300 mg subcut Q2W Qty: 4 11RF (DME) pen needle, diabetic [BD Lorna 2nd Gen Pen Needle] 32 gauge x 5/32 needle See Rx Instructions .Route Qty: 100 5RF Rx Instructions: injects 4 X/day gabapentin 400 mg capsule 400 mg PO BEDTIME Qty: 30 4RF levothyroxine 75 mcg tablet 75 mcg PO QAM Qty: 90 1RF Fiasp FlexTouch U-100 Insulin 100 unit/mL (3 mL) insulin pen 6 unit subcut TID Qty: 15 5RF atorvastatin 80 mg tablet 80 mg PO BEDTIME Qty: 30 4RF [facility] 10 billion cell -200 mg capsule, sprinkle 1 cap PO DAILY Qty: 30 6RF dextrose [Glutose-15] 40 % gel 15 g PO DIRECTED Qty: 112.5 5RF amoxicillin-pot clavulanate 875-125 mg tablet 1 tab PO BID 7 Days Qty: 14 0RF (DME) lancets [FreeStyle Lancets] 28 gauge misc See Rx Instructions .Route Qty: 100 5RF Rx Instructions: check blood sugars 3 times a day (DME) blood-glucose meter [Desktop [employer] Flash System] Kit See Rx Instructions .Route Qty: 1 0RF Rx Instructions: As directed albuterol sulfate 90 mcg/actuation HFA aerosol inhaler 2 puff inhalation Q4-6H PRN (Reason: shortness of breath or wheezing) Qty: 6.7 0RF prednisone 20 mg tablet 40 mg PO DAILY 5 Days Qty: 10 0RF ipratropium-albuterol 0.5 mg-3 mg(2.5 mg base)/3 mL Solution For Nebulization 3 ml INHALATION Q6H PRN (Reason: Respiratory Distress) Certavite-Antioxidant 18-400 mg-mcg Tablet 1 tab PO DAILY acetaminophen [Tylenol Extra Strength] 500 mg tablet 1,000 mg PO Q8-10H PRN (Reason: pain) 7 Days Qty: 42 0RF montelukast 10 mg tablet 10 mg PO BEDTIME clonazepam [Klonopin] 1 mg tablet 1 mg PO DAILY Rx Instructions: administer 30 minutes before bedtime (DME) Knee Support Brace Misc See Rx Instructions .ROUTE .MEDSUPPLY Qty: 2 0RF Rx Instructions: As directed senna 8.6 mg capsule 17.2 mg PO BEDTIME 30 Days Qty: 60 6RF zolpidem 10 mg tablet 10 mg PO BEDTIME PRN (Reason: Insomnia) risperidone 0.5 mg tablet 0.5 mg PO BID amlodipine 10 mg tablet 10 mg PO BEDTIME (DME) lancets 33 gauge misc See Rx Instructions Not Applicable DAILY Qty: 100 Rx Instructions: As directed (DME) FreeStyle Lite Strips Strip See Rx Instructions Not Applicable DAILY Qty: 10 Rx Instructions: As directed calcium carbonate-vitamin D3 600 mg(1,500mg) -400 unit tablet 1 tab PO BID potassium chloride 20 mEq tablet,ER particles/crystals 20 meq PO BID cetirizine 10 mg tablet 10 mg PO BEDTIME (DME) blood-glucose meter Kit See Rx Instructions .ROUTE DAILY Qty: 1 Rx Instructions: As directed Combivent Respimat 20-100 mcg/actuation mist 1 puff inhalation QID fluticasone propion-salmeterol 250-50 mcg/dose blister with device 1 ea inhalation BID enalapril maleate 20 mg tablet 20 mg PO DAILY Ozempic 0.25 mg or 0.5 mg(2 mg/1.5 mL) pen injector 0.5 mg subcut QWEEK Qty: 1.5 5RF prednisone 10 mg tablet 40 mg PO DAILY 7 Days Qty: 28 0RF omeprazole 20 mg capsule,delayed release(DR/EC) 20 mg PO BID@0630,1630 Qty: 60 6RF bisacodyl [Dulcolax (bisacodyl)] 5 mg tablet,delayed release (DR/EC) See Rx Instructions PO BEDTIME 30 Days Qty: 90 6RF Rx Instructions: 2 tabs qhs and 1 qam orally bedtime; docusate sodium 100 mg capsule 100 mg PO BID 30 Days Qty: 60 6RF fluoride (sodium) [SF 5000 Plus] 1.1 % cream PO buspirone 7.5 mg tablet 7.5 mg PO BID lidocaine 5 % adhesive patch,medicated 1 patch topical DAILY tramadol 50 mg tablet 50 mg PO BID PRN sennosides [senna] 8.6 mg tablet 17.2 mg PO BEDTIME Trulicity 0.75 mg/0.5 mL pen injector subcut QWEEK metformin 500 mg tablet extended release 24 hr 500 mg PO QPM emtricitabine-tenofovir (TDF) 200-300 mg tablet 1 tab PO DAILY peg 3350-electrolytes [Golytely] 236-22.74-6.74 -5.86 gram recon soln 240 ml PO Q10M 1 Days Qty: 4000 0RF Rx Instructions: until fecal effluent is clear; do not exceed a total volume of 2,000 mL metoclopramide HCl [Reglan] 10 mg tablet 10 mg PO TID Qty: 90 6RF Trulance 3 mg tablet 3 mg PO DAILY 30 Days Qty: 30 6RF Rx Instructions: Take one tablet by mouth once a day Referrals: Sariah Vickers APARTMENT MAINTENANCE [Primary Care Provider] - Interventions: ED Discharge Assessment Last Done: 02/28/22 14:06 Discharge Date/Time: 02/28/22 14:12 Print Language: Citizen [place]
[2022-02-28 11:49] VITALS: BP 146/78; PULSE 89; RESP 20; TEMP 36.6; O2SAT 96; BMI 44.2
--- NOTE | 2022-02-28 11:50 | ECG_ITS ---
Test Reason : cp Blood Pressure : / mmHG Vent. Rate : 083 BPM Atrial Rate : 083 BPM P-R Int : 200 ms QRS Dur : 104 ms QT Int : 382 ms P-R-T Axes : 035 -49 035 degrees QTc Int : 448 ms Normal sinus rhythm Left anterior fascicular block Minimal voltage criteria for LVH, may be normal variant ( [place] product ) Abnormal ECG When compared with ECG of 22-FEB-2022 17:36, No significant change was found Referred By: Alexandra Martinez Electronically Signed By:Agus Denise
[2022-02-28 12:20] LABS: MANUAL DIFF FLAG NO
[2022-02-28 12:21] LABS: Basophils Percent Auto 0.3 % (0-2); Eosinophils Percent Auto 0.4 % (0-4); Hematocrit 41.9 % (37.0-47.0); Hemoglobin 13.9 g/dl (12.0-16.0); Imm Gran Abs Auto 0.02 X10*3/uL (0.00-0.03); Imm Gran Pct Auto 0.3 % (0.0-0.4); Lymphocytes Absolute Auto 3.5 X10*3/uL (1.2-4.9); Lymphocytes Percent Auto 45.5 % (20-40); Mean Corpuscular HGB Conc 33.2 g/dl (31.0-35.0); Mean Corpuscular Hemoglobin 30.8 pg (27.0-33.0); Mean Corpuscular Volume 92.9 fL (80.0-98.0); Mean Platelet Volume 9.3 fL (9.4-12.3); Monocytes Absolute Auto 0.5 X10*3/uL (0.1-1.2); Monocytes Percent Auto 6.3 % (2-11); Neutrophils Absolute Auto 3.7 x10*3/uL (2.0-8.3); Neutrophils Percent Auto 47.2 % (45-73); Platelet Count 279 X10*3/uL (160-400); Red Blood Count 4.51 X10*6/uL (4.20-5.50); Red Cell Distribution Width 13.5 % (11.0-16.0); White Blood Count 7.7 X10*3/uL (4.8-10.8)
[2022-02-28 12:27] LABS: INTERNATIONAL NORM RATIO 0.9 (0.9-1.1); Prothrombin Time 10.3 SEC (10.0-13.1)
[2022-02-28 12:44] LABS: Alanine Aminotransferase 18 U/L (0-31); Alkaline Phosphatase 95 U/L (39-117); Anion Gap 13 (12-20); Aspartate Amino Transferase 21 U/L (5-31); Bilirubin Direct < 0.2 mg/dL (0.0-0.5); Bilirubin Total 0.3 mg/dL (0.0-1.0); Blood Urea Nitrogen 14 mg/dL (9-16); Calcium 9.3 mg/dL (8.4-10.2); Carbon Dioxide 24 mmol/L (22-29); Chloride 106 mmol/L (96-108); Creatinine Clr Calc Pharmacy 86.3; Estimated Glomerular Filt Rate > 60; Glucose Random 168 mg/dL (60-115); Potassium 3.3 mmol/L (3.3-5.1); Sodium 140 mmol/L (135-145); Total Protein 6.7 g/dL (6.5-8.0)
[2022-02-28 12:53] LABS: Troponin-I High Sensitivity < 3.5 ng/L (<3.5-17.0)
[2022-02-28 12:56] VITALS: PULSE 84; RESP 18; O2SAT 96
[2022-02-28 12:57] LABS: Influenza A PCR NEGATIVE (Negative); Influenza B PCR NEGATIVE (Negative); Resp Syncy Virus RNA Qual PCR NEGATIVE (Negative); SARS COV2 PCR INHOUSE POSITIVE (Negative)
[2022-02-28 13:18] VITALS: BP 157/95; PULSE 72; RESP 16; O2SAT 98
== END 2022-02-28 14:12 | disposition home or self-care (01) ==
PROVIDERS: Nurse Practitioner Family; Emergency Provider Student in an Organized Health Care Education/Training Program; PCP Nurse Practitioner Primary Care
DX: U07.1 COVID-19 (principal); E11.9 Type 2 diabetes mellitus without complications; I10 Essential (primary) hypertension; E78.00 Pure hypercholesterolemia, unspecified; F14.10 Cocaine abuse, uncomplicated; Z86.718 Personal history of other venous thrombosis and embolism; Z87.442 Personal history of urinary calculi; Z87.440 Personal history of urinary (tract) infections; Z20.828 Contact with and (suspected) exposure to other viral communicable diseases; Z79.02 Long term (current) use of antithrombotics/antiplatelets; Z79.899 Other long term (current) drug therapy
CPT/HCPCS: 0241U; 36415; 71046; 80048; 80076; 84484; 85025; 85610; 93005; 99283; 99284

== ENCOUNTER 2022-03-06 07:48 | Outpatient (REF) | payer OTHER, SELFPAY ==
--- NOTE | ~2022-03-06 | XR_ITS ---
EXAMINATION: XR HIP, RIGHT CLINICAL INFORMATION: Pain COMPARISON: CT abdomen pelvis 12/25/2018 TECHNIQUE: Two views of the right hip. One view of the pelvis. FINDINGS: Sclerosis and irregularity along the pubic symphysis which may reflect sequelae of osteitis pubis. Sclerosis along the bilateral sacroiliac joints which may reflect sequelae of sacroiliitis or osteitis condensans ilii. Hip joint spaces are maintained without significant degenerative change. Few calcified phleboliths in the pelvis. No acute fracture or dislocation. XR/XR hip RT w PEL1V IMPRESSION: Sclerosis and irregularity along the pubic symphysis which may reflect sequelae of osteitis pubis. Sclerosis along the bilateral sacroiliac joints which may reflect sequelae of sacroiliitis or osteitis condensans ilii. Hip joint spaces are maintained without significant degenerative change.
== END 2022-03-06 07:49 | disposition home or self-care (01) ==
LOC: HO.HOSX 07:48
PROVIDERS: Visit Provider Physician Assistant
DX: M25.561 Pain in right knee (principal); M70.61 Trochanteric bursitis, right hip; M53.3 Sacrococcygeal disorders, not elsewhere classified; G89.29 Other chronic pain
CPT/HCPCS: 73502; 99202

== ENCOUNTER 2022-03-08 09:59 | Outpatient (REF) | payer OTHER, SELFPAY | END 2022-03-08 10:00 | disposition home or self-care (01) | LOC: HO.MDS 09:59 | PROVIDERS: Visit Provider Internal Medicine Pulmonary Disease | DX: J45.50 Severe persistent asthma, uncomplicated (principal); M79.7 Fibromyalgia; M17.12 Unilateral primary osteoarthritis, left knee; M53.3 Sacrococcygeal disorders, not elsewhere classified; G89.29 Other chronic pain; E11.65 Type 2 diabetes mellitus with hyperglycemia; Z79.4 Long term (current) use of insulin; Z79.899 Other long term (current) drug therapy | CPT/HCPCS: 96372; 99212; J2357 ==

== ENCOUNTER 2022-03-08 11:12 | Outpatient (REF) | payer OTHER, SELFPAY ==
[2022-03-08 13:38] LABS: C Reactive Protein 0.26 mg/dL (< or = 0.50)
[2022-03-08 14:04] LABS: Erythrocyte Sedimentation Rate 14 MM/HR (0-20)
[2022-03-12 14:53] LABS: HLA B27 Negative (Negative)
== END 2022-03-08 11:13 | disposition home or self-care (01) ==
LOC: HO.10HDL 11:12
PROVIDERS: Visit Provider Nurse Practitioner Family
DX: M79.18 Myalgia, other site (principal)
CPT/HCPCS: 36415; 85652; 86140; 86812

== ENCOUNTER → 2022-03-13 10:30 | Outpatient (BNVA) | payer OTHER, SELFPAY | PROVIDERS: PCP Nurse Practitioner Primary Care; Visit Provider Anesthesiology | DX: M47.816 Spondylosis without myelopathy or radiculopathy, lumbar region (principal); M17.0 Bilateral primary osteoarthritis of knee | CPT/HCPCS: 99212 ==

== ENCOUNTER 2022-03-14 08:31 | Outpatient (REF) | payer OTHER, SELFPAY ==
--- NOTE | ~2022-03-14 | US_ITS ---
EXAMINATION: US ABDOMEN LIMITED CLINICAL INFORMATION: Nonalcoholic steatohepatitis (OKEEFE). COMPARISON: CT abdomen and pelvis without contrast 02/01/2022. Ultrasound retroperitoneal limited (renal only) 09/19/2021. Ultrasound abdomen limited 04/18/2021. X-ray abdomen KUB 05/15/2017 and 04/21/2017. TECHNIQUE: Real-time imaging of the right upper quadrant abdominal viscera. FINDINGS: PANCREAS: The head and the body the pancreas is homogeneous in echotexture. The tail is obscured by overlying gas. LIVER: The liver contour is normal. There is diffuse liver echogenicity. The liver is enlarged measuring 19.3 cm. No focal hepatic lesion. There is no intrahepatic biliary duct dilatation seen. GALLBLADDER: Gallbladder wall thickness is 0.2 cm. The gallbladder is physiologically distended without evidence of stones, sludge, polyps, wall thickening or pericholecystic fluid. COMMON BILE DUCT: Normal in caliber measuring 1.0 cm in diameter. RIGHT KIDNEY: No hydronephrosis. No renal calculi or focal parenchymal lesions. The kidney measures 9.9 cm in maximum dimension. There is an echogenic foci without twinkle in midpole measuring 0.6 x 0.8 cm FREE FLUID: None. US/US abdomen limited IMPRESSION: 1. Diffusely echogenic liver without focal lesion. Mild hepatomegaly 2. Visualized gallbladder, CBD, right kidney and visualized pancreas are unremarkable.
== END 2022-03-14 08:32 | disposition home or self-care (01) ==
LOC: HO.US 08:31
PROVIDERS: PCP Nurse Practitioner Primary Care; Visit Provider Nurse Practitioner
DX: K75.81 Nonalcoholic steatohepatitis (NASH) (principal)
CPT/HCPCS: 76705

== ENCOUNTER → 2022-03-19 10:34 | Outpatient (BNVA) | payer OTHER, SELFPAY | PROVIDERS: PCP Nurse Practitioner Primary Care; Visit Provider Dietitian, Registered | DX: Z13.89 Encounter for screening for other disorder (principal) ==

== ENCOUNTER 2022-03-29 10:05 | Outpatient (REF) | payer OTHER, SELFPAY | END 2022-03-29 10:06 | disposition home or self-care (01) | LOC: HO.MDS 10:05 | PROVIDERS: Visit Provider Internal Medicine Pulmonary Disease | DX: J45.50 Severe persistent asthma, uncomplicated (principal) | CPT/HCPCS: 96372 ==

== ENCOUNTER → 2022-04-05 10:09 | Outpatient (BNVA) | payer OTHER, SELFPAY | PROVIDERS: PCP Nurse Practitioner Primary Care; Visit Provider Urology | DX: N20.0 Calculus of kidney (principal) | CPT/HCPCS: 99212 ==

== ENCOUNTER 2022-04-07 11:21 | Emergency (ER) | payer OTHER, SELFPAY ==
--- NOTE | 2022-04-07 | ECG_ITS ---
Test Reason : chest tightness Blood Pressure : / mmHG Vent. Rate : 085 BPM Atrial Rate : 085 BPM P-R Int : 212 ms QRS Dur : 102 ms QT Int : 380 ms P-R-T Axes : 056 -50 039 degrees QTc Int : 452 ms Sinus rhythm with 1st degree A-V block Left anterior fascicular block Abnormal ECG When compared with ECG of 28-FEB-2022 12:04, No significant change was found Referred By: Generic ED Physician Electronically Signed By:LIVE YANEZ
--- NOTE | ~2022-04-07 | XR_ITS ---
EXAMINATION: XR CHEST CLINICAL INFORMATION: Chest tightness COMPARISON: X-ray 02/28/2022 TECHNIQUE: Frontal view of the chest was obtained. FINDINGS: Unchanged cardiomediastinal silhouette. Aortic arch calcification. No focal consolidation, effusion, edema or pneumothorax is seen. XR/XR chest 1V IMPRESSION: No evidence of acute pulmonary process.
[2022-04-07 11:23] VITALS: BP 143/85; PULSE 87; RESP 20; TEMP 36.7; O2SAT 95; BMI 36.6
[2022-04-07 12:04] LABS: IDNOW Serial# 6674DD1D; Strep A Nucleic Acid Negative (Negative)
[2022-04-07 12:29] LABS: Influenza A PCR NEGATIVE (Negative); Influenza B PCR NEGATIVE (Negative); Resp Syncy Virus RNA Qual PCR NEGATIVE (Negative); SARS COV2 PCR INHOUSE NEGATIVE (Negative)
[2022-04-07] MEDS: predniSONE 20 MG TABLET 60 MG PO (13:10)
[2022-04-07 13:18] VITALS: PULSE 72; RESP 15; O2SAT 99
--- NOTE | 2022-04-07 13:25 | ED_ITS ---
HPI - URI/Sore Throat General Chief Complaint: Upper Respiratory Symptoms Stated Complaint: phlegm, cp Time Seen by Provider: 04/07/22 11:55 History of Present Illness HPI Narrative: History taken through senior staff psychologist Patient complains of 5 days of worsening cough with sputum, and 3 days of using her albuterol nebulizer for asthma symptoms that are typical of many prior flares of her asthma She is getting episodes of chest tightness as well as sharp pain when she coughs or moves certain ways The chest tightness is very typical of prior asthma, the sharp chest pain is only with movement and cough and is not related to exertion there is no diaphoresis no vomiting no radiation of the pain no fainting or feeling faint no syncope no dizziness no confusion Related Data Home Medications Medication Instructions Recorded Confirmed amlodipine 10 mg tablet 10 mg PO BEDTIME 11/20/19 04/05/22 blood sugar diagnostic #10 ea 11/20/19 04/05/22 blood-glucose meter #1 ea 11/20/19 04/05/22 calcium carbonate 600 mg-vitamin 1 tab PO BID 11/20/19 04/05/22 D3 10 mcg (400 unit) tablet cetirizine 10 mg tablet 10 mg PO BEDTIME 11/20/19 04/05/22 lancets 33 gauge #100 ea 11/20/19 04/05/22 potassium chloride 20 mEq 20 meq PO BID 11/20/19 04/05/22 tablet,extended release(part/cryst) risperidone 0.5 mg tablet 0.5 mg PO BID 11/20/19 04/05/22 zolpidem 10 mg tablet 10 mg PO BEDTIME PRN Insomnia 11/20/19 04/05/22 clonazepam 1 mg tablet (Klonopin) 1 mg PO DAILY 03/08/20 04/05/22 montelukast 10 mg tablet 10 mg PO BEDTIME 03/08/20 04/05/22 fluticasone 250 mcg-salmeterol 50 1 ea inhalation BID 06/29/21 04/05/22 mcg/dose blistr powdr for inhalation ipratropium 20 mcg-albuterol 100 1 puff inhalation QID 06/29/21 04/05/22 mcg/actuation mist for inhalation (Combivent Respimat) ipratropium 0.5 mg-albuterol 3 mg 3 ml inhalation Q6H PRN 07/06/21 04/05/22 (2.5 mg base)/3 mL nebulization Respiratory Distress soln multivitamin-ferrous 1 tab PO DAILY 07/06/21 04/05/22 fumarate-folic acid 18 mg-400 mcg tablet (Certavite-Antioxidant) fluoride (sodium) 1.1 % dental appl PO 10/16/21 04/05/22 cream (SF 5000 Plus) enalapril maleate 20 mg tablet 20 mg PO DAILY 01/24/22 04/05/22 buspirone 7.5 mg tablet 7.5 mg PO BID 01/31/22 04/05/22 emtricitabine 200 mg-tenofovir 1 tab PO DAILY 01/31/22 04/05/22 disoproxil fumarate 300 mg tablet sennosides 8.6 mg tablet (senna) 17.2 mg PO BEDTIME constipation 01/31/22 04/05/22 tramadol 50 mg tablet 50 mg PO BID PRN 01/31/22 04/05/22 acetaminophen 325 mg tablet 325 mg PO 04/05/22 04/05/22 Previous Rx's Medication Instructions Recorded leg brace (Knee Support Brace) #2 ea 03/08/20 albuterol sulfate 90 mcg/actuation 2 puff inhalation Q4-6H PRN 09/29/20 aerosol inhaler shortness of breath or wheezing #6.7 grams sennosides 8.6 mg capsule (senna) 17.2 mg PO BEDTIME constipation 30 03/19/21 days #60 caps omalizumab 150 mg/mL subcutaneous 300 mg (2 mL) subcut Q2W #4 mL 08/31/21 syringe (Xolair) acetaminophen 500 mg tablet 1,000 mg PO Q8-10H PRN pain 7 days 09/05/21 (Tylenol Extra Strength) #42 tabs levothyroxine 75 mcg tablet 75 mcg PO QAM #90 tabs 10/16/21 insulin aspart 6 unit subcut TID #15 mL 12/14/21 (niacinamide)(U-100) 100 unit/mL(3 mL) subcutaneous pen (Fiasp FlexTouch U-100 Insulin) bisacodyl 5 mg tablet,delayed See Rx Instructions PO BEDTIME 30 12/27/21 release (Dulcolax (bisacodyl)) days #90 tabs docusate sodium 100 mg capsule 100 mg PO BID 30 days #60 caps 12/27/21 omeprazole 20 mg capsule,delayed 20 mg PO BID@0630,1630 #60 caps 12/27/21 release Lactobacil rhamnosus GG 10 billion 1 cap PO DAILY #30 caps 01/02/22 cell-inulin 200 mg sprinkle capsule ([facility]) atorvastatin 80 mg tablet 80 mg PO BEDTIME #30 tabs 01/02/22 metoclopramide HCl 10 mg tablet 10 mg PO TID #90 tabs 01/31/22 (Reglan) peg 3350-electrolytes 236 240 ml PO Q10M 1 day #4,000 mL 01/31/22 gram-22.74 gram-6.74 gram-5.86 gram solution (Golytely) plecanatide 3 mg tablet (Trulance) 3 mg PO DAILY 30 days #30 tabs 01/31/22 dextrose 40 % oral gel (Glutose-15) 15 g PO DIRECTED for 02/06/22 hypoglycemia #112.5 grams blood-glucose meter (FreeStyle #1 ea 02/28/22 Flash System kit) lancets 28 gauge (FreeStyle #100 ea 02/28/22 Lancets) gabapentin 400 mg capsule 400 mg PO BEDTIME #30 caps 03/06/22 tiotropium bromide 18 mcg capsule 1 cap inhalation DAILY #30 caps 03/14/22 with inhalation device (Spiriva with HandiHaler) prednisone 10 mg tablet 40 mg PO DAILY 5 days #20 tabs 03/15/22 pen needle, diabetic 32 gauge x ##100 03/29/22 (UltiCare Pen Needle) pyridoxine (vitamin B6) 100 mg 100 mg PO DAILY #90 tabs 04/05/22 tablet doxycycline hyclate 100 mg capsule 100 mg PO BID 7 days #14 caps 04/07/22 prednisone 20 mg tablet 60 mg PO DAILY 4 days #12 tabs 04/07/22 Allergies Allergy/AdvReac Type Severity Reaction Status Date / Time aspirin [Aspirin] Allergy Mild ITCHY Verified 04/05/22 10:29 THROAT azithromycin Allergy Unknown Unknown Verified 04/05/22 10:29 naproxen Allergy Unknown Unknown Verified 04/05/22 10:29 simvastatin Allergy Unknown Unknown Verified 04/05/22 10:29 Fish Containing Products Allergy Swelling Verified 04/05/22 10:29 onion [ONION] AdvReac Mild RED FACE Verified 04/05/22 10:29 [facility] Past Medical History Source: nursing notes reviewed Medical History Allergic rhinitis Anxiety and depression Bronchitis Chest pain Cocaine abuse COPD exacerbation Diabetes DVT (deep venous thrombosis) Fibromyalgia HTN (hypertension) Hypothyroidism Low vitamin D level Non-toxic multinodular goiter PTSD (post-traumatic stress disorder) Renal calculi Spondylosis of cervical region without myelopathy or radiculopathy UTI (urinary tract infection) Vertigo Surgical History H/O colonoscopy with polypectomy History of esophagogastroduodenoscopy (EGD) History of hysterectomy History of lithotripsy History of selective injection of anesthetic agent around lumbar nerve root Hx of right breast biopsy Family History Family History Father No problems noted. 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 Physical Exam Vital Signs: Vital Signs: Last Vital Signs Temp 98.0 F 04/07/22 11:23 Pulse 72 04/07/22 13:18 Resp 15 04/07/22 13:18 BP 143/85 H 04/07/22 11:23 Pulse Ox 95 04/07/22 11:23 O2 Del Method 04/07/22 11:23 BMI result Body Mass Index 36.6 General appearance is no acute distress Eyes no redness or discharge Head is normocephalic atraumatic The sinuses are nontender The pharynx is clear without redness swelling or exudate membranes are moist Neck is supple Respiratory no distress speaking full sentences The chest is clear to auscultation bilateral with mildly decreased breath sounds bilaterally, no adventitious sounds no wheeze no prolonged expiration The heart no murmur auscultated Abdomen soft nontender Extremities no edema no calf tenderness or swelling Skin no rash Course Course Course Narrative: EKG is a sinus rhythm with 1st degree AV block, GA is 212, there is a left anterior fascicle block, rate is 85, QRS duration is normal QT is normal, no acute ischemic changes no ST elevations When compared to prior EKG of 02/28/2022 there are no acute changes Chest x-ray no acute findings, no evidence of pneumonia, COVID and flu tests were negative Patient's symptoms very unlikely to be cardiac as there typical symptoms of asthma with some tightness in her chest but no other chest pain except a sharp pain when she coughs or moves the wrong way not related to exertion Patient's asthma symptoms were relieved after 1 treatment and her lung sounds were very improved with full symmetric air entry as opposed to the diminished air entry prior to the treatment and she is discharged with treatment for bronchitis with doxycycline and prednisone for her asthma, she does have plenty of treatments at home and has a pump Her breathing felt very improved, no short of breath, and patient ambulated easily speaking full sentences and was discharged Medications Administered Discontinued Medications Generic Name Dose Route Start Last Admin Trade Name Freq PRN Reason Stop Dose Admin Albuterol Sulfate 5 mg/ 0 mg 04/07/22 12:55 04/07/22 13:15 Ipratropium [place] 0.5 mg INHALE 04/07/22 12:56 1 each ONCE ONE Administration Prednisone 60 mg 04/07/22 12:55 04/07/22 13:10 Prednisone 20 Mg Tablet PO 04/07/22 12:56 60 mg ONCE ONE Administration Medical Decision Making Lab Data Labs: Lab Results 04/07/22 04/07/22 Range/Units 11:44 11:44 Influenza Type A (PCR) NEGATIVE (Negative) Influenza Type B (PCR) NEGATIVE (Negative) RSV RNA Qual (PCR) NEGATIVE (Negative) SARS-CoV-2 RNA (RT-PCR) NEGATIVE (Negative) S. pyogenes GrpA MAGDALENE Negative (Negative) Discharge Plan Discharge Clinical Impression: Asthma, Bronchitis Patient Disposition: Home, Self-Care Additional Instructions: EKG did not show any sign of heart attack, the tightness in your chest is most likely from asthma similar to many prior times and the sharper pain with a deep breath and cough is likely from strains of muscles in the chest wall Use antibiotic doxycycline for bronchitis and prednisone to reduce inflammation from asthma Use nebulizer as needed Return any time for difficulty breathing chest pain any worse condition or any concerns Prescriptions: New prednisone 20 mg tablet 60 mg PO DAILY 4 Days Qty: 12 0RF doxycycline hyclate 100 mg capsule 100 mg PO BID 7 Days Qty: 14 0RF No Action Xolair 150 mg/mL syringe 300 mg subcut Q2W Qty: 4 11RF levothyroxine 75 mcg tablet 75 mcg PO QAM Qty: 90 1RF Fiasp FlexTouch U-100 Insulin 100 unit/mL (3 mL) insulin pen 6 unit subcut TID Qty: 15 5RF atorvastatin 80 mg tablet 80 mg PO BEDTIME Qty: 30 4RF [facility] 10 billion cell -200 mg capsule, sprinkle 1 cap PO DAILY Qty: 30 6RF dextrose [Glutose-15] 40 % gel 15 g PO DIRECTED Qty: 112.5 5RF (DME) lancets [FreeStyle Lancets] 28 gauge misc See Rx Instructions .Route Qty: 100 5RF Rx Instructions: check blood sugars 3 times a day (DME) blood-glucose meter [TastyNow.comStyle Flash System] Kit See Rx Instructions .Route Qty: 1 0RF Rx Instructions: As directed gabapentin 400 mg capsule 400 mg PO BEDTIME Qty: 30 4RF Spiriva with HandiHaler 18 mcg capsule, w/inhalation device 1 cap inhalation DAILY Qty: 30 6RF prednisone 10 mg tablet 40 mg PO DAILY 5 Days Qty: 20 0RF (DME) pen needle, diabetic [UltiCare Pen Needle] 32 gauge x 5/32 needle See Rx Instructions .ROUTE .COMPLEX Qty: 100 5RF Dose Instruction: USE FOUR TIMES DAILY Rx Instructions: USE FOUR TIMES DAILY albuterol sulfate 90 mcg/actuation HFA aerosol inhaler 2 puff inhalation Q4-6H PRN (Reason: shortness of breath or wheezing) Qty: 6.7 0RF ipratropium-albuterol 0.5 mg-3 mg(2.5 mg base)/3 mL Solution For Nebulization 3 ml INHALATION Q6H PRN (Reason: Respiratory Distress) Certavite-Antioxidant 18-400 mg-mcg Tablet 1 tab PO DAILY acetaminophen [Tylenol Extra Strength] 500 mg tablet 1,000 mg PO Q8-10H PRN (Reason: pain) 7 Days Qty: 42 0RF montelukast 10 mg tablet 10 mg PO BEDTIME clonazepam [Klonopin] 1 mg tablet 1 mg PO DAILY Rx Instructions: administer 30 minutes before bedtime (DME) Knee Support Brace Misc See Rx Instructions .ROUTE .MEDSUPPLY Qty: 2 0RF Rx Instructions: As directed senna 8.6 mg capsule 17.2 mg PO BEDTIME 30 Days Qty: 60 6RF zolpidem 10 mg tablet 10 mg PO BEDTIME PRN (Reason: Insomnia) risperidone 0.5 mg tablet 0.5 mg PO BID amlodipine 10 mg tablet 10 mg PO BEDTIME (DME) lancets 33 gauge misc See Rx Instructions Not Applicable DAILY Qty: 100 Rx Instructions: As directed (DME) FreeStyle Lite Strips Strip See Rx Instructions Not Applicable DAILY Qty: 10 Rx Instructions: As directed calcium carbonate-vitamin D3 600 mg(1,500mg) -400 unit tablet 1 tab PO BID potassium chloride 20 mEq tablet,ER particles/crystals 20 meq PO BID cetirizine 10 mg tablet 10 mg PO BEDTIME (DME) blood-glucose meter Kit See Rx Instructions .ROUTE DAILY Qty: 1 Rx Instructions: As directed Combivent Respimat 20-100 mcg/actuation mist 1 puff inhalation QID fluticasone propion-salmeterol 250-50 mcg/dose blister with device 1 ea inhalation BID enalapril maleate 20 mg tablet 20 mg PO DAILY acetaminophen 325 mg tablet 325 mg PO pyridoxine (vitamin B6) 100 mg tablet 100 mg PO DAILY Qty: 90 3RF omeprazole 20 mg capsule,delayed release(DR/EC) 20 mg PO BID@0630,1630 Qty: 60 6RF bisacodyl [Dulcolax (bisacodyl)] 5 mg tablet,delayed release (DR/EC) See Rx Instructions PO BEDTIME 30 Days Qty: 90 6RF Rx Instructions: 2 tabs qhs and 1 qam orally bedtime; docusate sodium 100 mg capsule 100 mg PO BID 30 Days Qty: 60 6RF fluoride (sodium) [SF 5000 Plus] 1.1 % cream PO buspirone 7.5 mg tablet 7.5 mg PO BID tramadol 50 mg tablet 50 mg PO BID PRN sennosides [senna] 8.6 mg tablet 17.2 mg PO BEDTIME emtricitabine-tenofovir (TDF) 200-300 mg tablet 1 tab PO DAILY peg 3350-electrolytes [Golytely] 236-22.74-6.74 -5.86 gram recon soln 240 ml PO Q10M 1 Days Qty: 4000 0RF Rx Instructions: until fecal effluent is clear; do not exceed a total volume of 2,000 mL metoclopramide HCl [Reglan] 10 mg tablet 10 mg PO TID Qty: 90 6RF Trulance 3 mg tablet 3 mg PO DAILY 30 Days Qty: 30 6RF Rx Instructions: Take one tablet by mouth once a day
--- NOTE | 2022-04-07 13:58 | PC.NURSE ---
pt was reevaluated and discharged by the provider
== END 2022-04-07 14:00 | disposition home or self-care (01) ==
PROVIDERS: Emergency Provider Emergency Medicine; PCP Nurse Practitioner Primary Care
DX: J45.909 Unspecified asthma, uncomplicated (principal); R07.89 Other chest pain; Z20.822 Contact with and (suspected) exposure to COVID-19; Z79.899 Other long term (current) drug therapy
CPT/HCPCS: 0241U; 71045; 87651; 93005; 94640; 99284

== ENCOUNTER 2022-04-19 11:25 | Outpatient (REF) | payer OTHER, SELFPAY | END 2022-04-19 11:26 | disposition home or self-care (01) | LOC: HO.MDS 11:25 | PROVIDERS: Visit Provider Internal Medicine Pulmonary Disease | DX: J45.50 Severe persistent asthma, uncomplicated (principal); M17.12 Unilateral primary osteoarthritis, left knee; M25.561 Pain in right knee; M25.562 Pain in left knee; M79.7 Fibromyalgia | CPT/HCPCS: 96372; 99212 ==

== ENCOUNTER 2022-04-19 11:58 | Outpatient (REF) | payer OTHER, SELFPAY ==
--- NOTE | ~2022-04-19 | XR_ITS ---
EXAMINATION: XR KNEES, STANDING AP BILATERAL XR KNEE, RIGHT XR KNEE, LEFT CLINICAL INFORMATION: Bilateral knee pain COMPARISON: Bilateral knee radiographs 09/05/2021 TECHNIQUE: Bilateral standing AP view of the knees is performed. Each knee is also imaged in lateral and axial patella views. FINDINGS: Right: Normal bony mineralization. No destructive process or arthropathy. No knee joint compartment narrowing, erosive changes, or chondrocalcinosis. No suprapatellar effusion. The patella shows no lateralization or definite tilting. Left: Normal bony mineralization. No destructive process. Again, there is mild narrowing medial knee joint compartment. No erosive change or chondrocalcinosis. No subchondral sclerosis. No definite suprapatellar effusion. Axial view patella shows no lateralization or tilting. Some punctate mineralization posterior knee soft tissues noted previously are stable. XR/XR knee RT 2V IMPRESSION: Right: None joint compartment narrowing. No effusion. Left: Mild narrowing medial knee joint compartment. No effusion.
--- NOTE | ~2022-04-19 | XR_ITS ---
EXAMINATION: XR KNEES, STANDING AP BILATERAL XR KNEE, RIGHT XR KNEE, LEFT CLINICAL INFORMATION: Bilateral knee pain COMPARISON: Bilateral knee radiographs 09/05/2021 TECHNIQUE: Bilateral standing AP view of the knees is performed. Each knee is also imaged in lateral and axial patella views. FINDINGS: Right: Normal bony mineralization. No destructive process or arthropathy. No knee joint compartment narrowing, erosive changes, or chondrocalcinosis. No suprapatellar effusion. The patella shows no lateralization or definite tilting. Left: Normal bony mineralization. No destructive process. Again, there is mild narrowing medial knee joint compartment. No erosive change or chondrocalcinosis. No subchondral sclerosis. No definite suprapatellar effusion. Axial view patella shows no lateralization or tilting. Some punctate mineralization posterior knee soft tissues noted previously are stable. XR/XR knee LT 2V IMPRESSION: Right: None joint compartment narrowing. No effusion. Left: Mild narrowing medial knee joint compartment. No effusion.
--- NOTE | ~2022-04-19 | XR_ITS ---
EXAMINATION: XR KNEES, STANDING AP BILATERAL XR KNEE, RIGHT XR KNEE, LEFT CLINICAL INFORMATION: Bilateral knee pain COMPARISON: Bilateral knee radiographs 09/05/2021 TECHNIQUE: Bilateral standing AP view of the knees is performed. Each knee is also imaged in lateral and axial patella views. FINDINGS: Right: Normal bony mineralization. No destructive process or arthropathy. No knee joint compartment narrowing, erosive changes, or chondrocalcinosis. No suprapatellar effusion. The patella shows no lateralization or definite tilting. Left: Normal bony mineralization. No destructive process. Again, there is mild narrowing medial knee joint compartment. No erosive change or chondrocalcinosis. No subchondral sclerosis. No definite suprapatellar effusion. Axial view patella shows no lateralization or tilting. Some punctate mineralization posterior knee soft tissues noted previously are stable. XR/XR knee standing BI IMPRESSION: Right: None joint compartment narrowing. No effusion. Left: Mild narrowing medial knee joint compartment. No effusion.
== END 2022-04-19 11:59 | disposition home or self-care (01) ==
LOC: HO.HOSX 11:58
PROVIDERS: Visit Provider Physician Assistant
DX: M25.561 Pain in right knee (principal); M25.562 Pain in left knee
CPT/HCPCS: 73560; 73565

== ENCOUNTER 2022-04-24 14:00 | Outpatient (RCR) | payer OTHER, SELFPAY ==
--- NOTE | 2022-03-28 13:54 | MHC.PT.EP ---
[facility] [place] Office [place] Office [place] Office [address] [phone] F: [phone] F: [phone] F: [phone] F: [phone] Physical Therapy Plan of Care Date of Evaluation: Date of Surgery: Diagnosis: R hip trochanteric bursitis chronic RIGHT SIJ pain Assessment: Patient is a 61 y.o. who is referred to PT by RAYMUNDO Tariq, with Dx of R hip trochanteric bursits, chronic R SIJ pain. Patient impairments include pain, weakness, limited ROM, poor balance (she expressed vestibular concerns, referred to PT for it 04/2022). Patient current functional limitations are difficulty with bend/squat, lift something (groceries on floor), ascend/descend stairs, walking any distance, bathing and dressing without help. Patient will benefit from skilled PT to address aforementioned impairments and functional limitations to meet established goals. Frequency and Duration: The patient will be seen 1-2x/week for 4 weeks Short Term Goals: 2 weeks Patient demonstrates consistency and independence with HEP to self manage symptoms. Patient presents with increased R hip flexion 105 degrees to be able to perform sit to stand from low surface. 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 Patient presents with increased R hip glut med strength 4/5 to be able to walk outside with LRAD. Treatment Plan: Modalities to reduce pain, spasms and effusion. Manual therapy to restore motion and function. Therapeutic exercise to improve strength and flexibility. Neuromuscular re-education for posture and balance. Therapeutic activities to return to functional activities of daily living. Electronically signed by: Andreea Vo, PT, DPT Please sign and return to therapist. Thank you for your referral.
--- NOTE | 2022-07-02 14:17 | MHC.PT.DC ---
[facility] [place] [facility] [place] [facility] [place] [facility] [address] Fred Brown [address] [phone] F: [phone] F: [phone] F: [phone] F: [phone] Physical Therapy Discharge Report Diagnosis: R hip trochanteric bursitis chronic RIGHT SIJ pain Date of Surgery: Date of Evaluation: 03/27/22 Date of Discharge: 07/02/22 Treatments to Date: 3 Cancellations to Date: 4 No Shows to Date: 4 Discharge Status: Visit Non-compliance Discharge Summary: Patient with inconsistent and poor attendance with PT. She is discharged for visit non-compliance. Electronically signed by: Andreea Vo, PT, DPT Please sign and return to therapist. Thank you for your referral.
== END 2022-07-02 14:17 | disposition home or self-care (01) ==
LOC: HO.PT 14:00
PROVIDERS: PCP Nurse Practitioner Primary Care; Visit Provider Physician Assistant
DX: M70.61 Trochanteric bursitis, right hip (principal); M53.3 Sacrococcygeal disorders, not elsewhere classified; G89.29 Other chronic pain
CPT/HCPCS: 95992; 97110; 97140; 97162; 97530

== ENCOUNTER 2022-04-30 06:12 | Outpatient (REF) | payer OTHER, SELFPAY | END 2022-04-30 06:13 | disposition home or self-care (01) | LOC: CF 06:12 | PROVIDERS: Visit Provider Anesthesiology | DX: Z13.89 Encounter for screening for other disorder (principal) ==

== ENCOUNTER 2022-05-03 13:20 | Outpatient (REF) | payer OTHER, SELFPAY | END 2022-05-03 13:21 | disposition home or self-care (01) | LOC: HO.MDS 13:20 | PROVIDERS: Visit Provider Internal Medicine Pulmonary Disease | DX: J45.50 Severe persistent asthma, uncomplicated (principal) | CPT/HCPCS: 96372 ==

== ENCOUNTER 2022-05-07 06:34 | Outpatient (REF) | payer OTHER, SELFPAY ==
--- NOTE | ~2022-05-07 | FL_ITS ---
EXAMINATION: XR FLUOROSCOPY WITH IMAGES CLINICAL INFORMATION: M17.12 - Unilateral primary osteoarthritis, left knee COMPARISON: None available. TECHNIQUE: Fluoroscopy Supervised By: Dr. Bryan Velázquez. Fluoroscopy Time: Under 1 minute. Cumulative Dose: 1.82 mGy. DAP: 0.498 Gycm2. Images: 1. FINDINGS: There are spinal needles overlying the distal shaft femur on both the medial and lateral sides. There is a metallic marker pointing towards the proximal medial tibia. FL/FL guidance in treatment room IMPRESSION: Fluoroscopy for pain management procedures.
== END 2022-05-07 06:35 | disposition home or self-care (01) ==
LOC: CF 06:34
PROVIDERS: Visit Provider Anesthesiology
DX: M47.816 Spondylosis without myelopathy or radiculopathy, lumbar region (principal); M17.0 Bilateral primary osteoarthritis of knee
CPT/HCPCS: 64454

== ENCOUNTER 2022-05-10 09:54 | Emergency (ER) | payer OTHER, SELFPAY ==
--- NOTE | ~2022-05-10 | XR_ITS ---
EXAMINATION: XR CHEST CLINICAL INFORMATION: Shortness of breath. COMPARISON: 04/07/2022 chest radiograph. TECHNIQUE: Frontal view of the chest was obtained. FINDINGS: No significant abnormality is noted involving the heart, lungs, mediastinum, bony thorax or soft tissues. XR/XR chest 1V IMPRESSION: No acute cardiopulmonary process.
[2022-05-10 10:00] VITALS: BP 140/86; PULSE 86; RESP 16; TEMP 36.6; O2SAT 95; BMI 32.3
--- NOTE | 2022-05-10 10:02 | ECG_ITS ---
Test Reason : sob Blood Pressure : / mmHG Vent. Rate : 078 BPM Atrial Rate : 078 BPM P-R Int : 220 ms QRS Dur : 104 ms QT Int : 396 ms P-R-T Axes : 046 -48 030 degrees QTc Int : 451 ms Sinus rhythm with 1st degree A-V block Left anterior fascicular block Minimal voltage criteria for LVH, may be normal variant ( Bala product ) Abnormal ECG When compared with ECG of 07-APR-2022 11:40, No significant change was found Referred By: Generic ED Physician Electronically Signed By:BEHZAD LOUIE MD
--- NOTE | 2022-05-10 10:28 | ED.SOB ---
HPI - SOB/Dyspnea General Chief Complaint: Dyspnea Stated Complaint: difficulty breathing Time Seen by Provider: 05/10/22 10:22 Source: patient, old records reviewed and certified court interpreter Mode of arrival: ambulatory Limitations: no limitations History of Present Illness HPI Narrative: 61 yo Eritrean speaking female with history of HTN, HLD, DM, PTSD, depression/anxiety, fibromyalgia, OKEEFE, asthma/COPD, hypothyrodism who presents to the ER for evaluation of 3 days of chest tightness, wheezing, and SOB despite using her nebulizer machine at home. She states last night it got worse. She has been coughing up yellow phlegm. She denies any fevers or sick contacts. No chest pains. MD elicited complaint: shortness of breath, cough and asthma attack Pertinent past history: COPD and asthma Onset (ago): day(s) (3) Timing: progressively worsening Severity: similar to previous episodes Exacerbating factors: exertion and coughing Relieving factors: rest, bronchodilators and upright position Known history of: COPD and asthma Associated symptoms: cough, wheezing, sputum production and chest congestion Treatment prior to arrival: none Related Data Home Medications Medication Instructions Recorded Confirmed amlodipine 10 mg tablet 10 mg PO BEDTIME 11/20/19 04/05/22 blood sugar diagnostic #10 ea 11/20/19 04/05/22 blood-glucose meter #1 ea 11/20/19 04/05/22 calcium carbonate 600 mg-vitamin 1 tab PO BID 11/20/19 04/05/22 D3 10 mcg (400 unit) tablet cetirizine 10 mg tablet 10 mg PO BEDTIME 11/20/19 04/05/22 lancets 33 gauge #100 ea 11/20/19 04/05/22 potassium chloride 20 mEq 20 meq PO BID 11/20/19 04/05/22 tablet,extended release(part/cryst) risperidone 0.5 mg tablet 0.5 mg PO BID 11/20/19 04/05/22 zolpidem 10 mg tablet 10 mg PO BEDTIME PRN Insomnia 11/20/19 04/05/22 clonazepam 1 mg tablet (Klonopin) 1 mg PO DAILY 03/08/20 04/05/22 montelukast 10 mg tablet 10 mg PO BEDTIME 03/08/20 04/05/22 fluticasone 250 mcg-salmeterol 50 1 ea inhalation BID 06/29/21 04/05/22 mcg/dose blistr powdr for inhalation ipratropium 20 mcg-albuterol 100 1 puff inhalation QID 06/29/21 04/05/22 mcg/actuation mist for inhalation (Combivent Respimat) ipratropium 0.5 mg-albuterol 3 mg 3 ml inhalation Q6H PRN 07/06/21 04/05/22 (2.5 mg base)/3 mL nebulization Respiratory Distress soln multivitamin-ferrous 1 tab PO DAILY 07/06/21 04/05/22 fumarate-folic acid 18 mg-400 mcg tablet (Certavite-Antioxidant) fluoride (sodium) 1.1 % dental appl PO 10/16/21 04/05/22 cream (SF 5000 Plus) enalapril maleate 20 mg tablet 20 mg PO DAILY 01/24/22 04/05/22 buspirone 7.5 mg tablet 7.5 mg PO BID 01/31/22 04/05/22 emtricitabine 200 mg-tenofovir 1 tab PO DAILY 01/31/22 04/05/22 disoproxil fumarate 300 mg tablet sennosides 8.6 mg tablet (senna) 17.2 mg PO BEDTIME constipation 01/31/22 04/05/22 tramadol 50 mg tablet 50 mg PO BID PRN 01/31/22 04/05/22 acetaminophen 325 mg tablet 325 mg PO 04/05/22 04/05/22 carbamide peroxide 6.5 % ear drops 0 drp otic (ears) 05/07/22 (Ear Drops (carbamide peroxide)) diclofenac sodium 1 % topical gel g topical 05/07/22 naloxone 4 mg/actuation nasal spray 0 spray intranasal 05/07/22 Previous Rx's Medication Instructions Recorded leg brace (Knee Support Brace) #2 ea 03/08/20 albuterol sulfate 90 mcg/actuation 2 puff inhalation Q4-6H PRN 09/29/20 aerosol inhaler shortness of breath or wheezing #6.7 grams sennosides 8.6 mg capsule (senna) 17.2 mg PO BEDTIME constipation 30 03/19/21 days #60 caps omalizumab 150 mg/mL subcutaneous 300 mg (2 mL) subcut Q2W #4 mL 08/31/21 syringe (Xolair) acetaminophen 500 mg tablet 1,000 mg PO Q8-10H PRN pain 7 days 09/05/21 (Tylenol Extra Strength) #42 tabs insulin aspart 6 unit subcut TID #15 mL 12/14/21 (niacinamide)(U-100) 100 unit/mL(3 mL) subcutaneous pen (Fiasp FlexTouch U-100 Insulin) bisacodyl 5 mg tablet,delayed See Rx Instructions PO BEDTIME 30 12/27/21 release (Dulcolax (bisacodyl)) days #90 tabs docusate sodium 100 mg capsule 100 mg PO BID 30 days #60 caps 12/27/21 omeprazole 20 mg capsule,delayed 20 mg PO BID@0630,1630 #60 caps 12/27/21 release Lactobacil rhamnosus GG 10 billion 1 cap PO DAILY #30 caps 01/02/22 cell-inulin 200 mg sprinkle capsule ([facility]) atorvastatin 80 mg tablet 80 mg PO BEDTIME #30 tabs 01/02/22 metoclopramide HCl 10 mg tablet 10 mg PO TID #90 tabs 01/31/22 (Reglan) peg 3350-electrolytes 236 240 ml PO Q10M 1 day #4,000 mL 01/31/22 gram-22.74 gram-6.74 gram-5.86 gram solution (Golytely) plecanatide 3 mg tablet (Trulance) 3 mg PO DAILY 30 days #30 tabs 01/31/22 dextrose 40 % oral gel (Glutose-15) 15 g PO DIRECTED for 02/06/22 hypoglycemia #112.5 grams blood-glucose meter (FreeStyle #1 ea 02/28/22 Flash System kit) lancets 28 gauge (FreeStyle #100 ea 02/28/22 Lancets) gabapentin 400 mg capsule 400 mg PO BEDTIME #30 caps 03/06/22 tiotropium bromide 18 mcg capsule 1 cap inhalation DAILY #30 caps 03/14/22 with inhalation device (Spiriva with HandiHaler) prednisone 10 mg tablet 40 mg PO DAILY 5 days #20 tabs 03/15/22 pen needle, diabetic 32 gauge x ##100 03/29/22 (UltiCare Pen Needle) pyridoxine (vitamin B6) 100 mg 100 mg PO DAILY #90 tabs 04/05/22 tablet doxycycline hyclate 100 mg capsule 100 mg PO BID 7 days #14 caps 04/07/22 prednisone 20 mg tablet 60 mg PO DAILY 4 days #12 tabs 04/07/22 levothyroxine 75 mcg tablet 75 mcg PO QAM #90 tabs 04/11/22 benzonatate 100 mg capsule 100 mg PO TID PRN cough #30 caps 05/10/22 doxycycline hyclate 100 mg tablet 100 mg PO BID #10 tabs 05/10/22 prednisone 20 mg tablet 40 mg PO DAILY #10 tabs 05/10/22 Allergies Allergy/AdvReac Type Severity Reaction Status Date / Time aspirin [Aspirin] Allergy Mild ITCHY Verified 05/07/22 14:37 THROAT azithromycin Allergy Unknown Unknown Verified 05/07/22 14:37 naproxen Allergy Unknown Unknown Verified 05/07/22 14:37 simvastatin Allergy Unknown Unknown Verified 05/07/22 14:37 Fish Containing Products Allergy Swelling Verified 05/07/22 14:37 onion [ONION] AdvReac Mild RED FACE Verified 05/07/22 14:37 Review of Systems Review of Systems: Yes all other systems are reviewed and are negative [facility] Past Medical History Medical History Allergic rhinitis Anxiety and depression Bronchitis Chest pain Cocaine abuse COPD exacerbation Diabetes DVT (deep venous thrombosis) Fibromyalgia HTN (hypertension) Hypothyroidism Low vitamin D level Non-toxic multinodular goiter PTSD (post-traumatic stress disorder) Renal calculi Spondylosis of cervical region without myelopathy or radiculopathy UTI (urinary tract infection) Vertigo Surgical History H/O colonoscopy with polypectomy History of esophagogastroduodenoscopy (EGD) History of hysterectomy History of lithotripsy History of selective injection of anesthetic agent around lumbar nerve root Hx of right breast biopsy Family History Family History Father No problems noted. 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 Oriented X3. No acute distress. Eyes: Pupils equal, round and reactive to light. ENT: Pharynx normal. Neck: Normal inspection. Neck supple. CVS: Normal heart rate and rhythm. Pulses normal. Respiratory: No respiratory distress. Breath sounds with end expiratory wheeze at the bases, no rales or rhonchi. forceful expiratory wheeze audible in the neck Abdomen: Soft and nontender. +BS x4 Skin: Skin warm and dry. Normal skin color. Normal skin turgor. No rashes. Extremities: No lower extremity edema. No calf tenderness or redness Neuro: Oriented X 3. No motor deficit. No sensory deficit. Course Reevaluation(s) Reevaluation #1: improved after neb and prednisone. cxr negative stable for d/c home w/ tx for bronchitis Medications Administered Discontinued Medications Generic Name Dose Route Start Last Admin Trade Name Freq PRN Reason Stop Dose Admin Albuterol Sulfate 7.5 mg 05/10/22 10:27 05/10/22 11:01 Albuterol Sulfate (0.083%) 2.5 Mg/3 Ml Vial.Neb INHALE 05/10/22 10:28 7.5 mg ONCE ONE Administration Prednisone 50 mg 05/10/22 10:27 05/10/22 10:51 Prednisone 5 Mg Tablet PO 05/10/22 10:28 50 mg ONCE ONE Administration Medical Decision Making Medical Decision Making MDM Narrative: 61-year-old female with history of asthma/COPD presents to the ER for evaluation 3 days of chest tightness, wheezing, shortness of breath. She is saturating well with stable vital signs on arrival. She is speaking complete sentences. On examination she has forced expiratory wheezes, question VCD. She is not anxious. She was given a a 7.5 mg nebulizer treatment and 50 mg of oral prednisone. She is feeling much better. Chest x-ray is negative for pneumonia. Stable for d/c home with treatment for acute bronchitis. Differential Diagnosis Differential Diagnoses: The differential diagnosis associated with the presentation includes Acute asthma exacerbation, acute COPD exacerbation, acute viral syndrome, community-acquired pneumonia, COVID, flu, RSV, seasonal allergy, less likely ACS or PE Independent Interpretation I performed an independent interpretation of an: Plain X-Ray Interpretation: Chest x-ray reviewed, no evidence of pneumonia, infiltrate, effusion. Lungs are clear. Radiology Impression Discussion of test interpretation with radiology: I have reviewed the radiologist's reading. Radiologist Impression: XR/XR chest 1V IMPRESSION: No acute cardiopulmonary process. ? External Record Review External record reviewed: Outpatient record, Prior outpatient labs and Prior outpatient radiology Prescription Management I considered prescription management with: Antibiotic and Other (Steroids) Chronic Conditions Patient?s care impacted by: Other (Asthma/COPD) Critical Care Time Critical Care Time Critical Care Time: No Discharge Plan Discharge Clinical Impression: Acute bronchitis Patient Disposition: Home, Self-Care Instructions: Acute Bronchitis (ED) Additional Instructions: Your x-ray did not show any evidence of pneumonia. Continue to use your albuterol treatments at home. Take the prescribed medications as directed. Do not start your prednisone until tomorrow, your given 1st dose today in the emergency department. Follow-up with your lung doctor and her primary care doctor. If you develop new or worsening symptoms call 911 or come back to the ER for further evaluation. Booth radiograf?a no mostr? ninguna evidencia de neumon?a. Contin?e usando norah tratamientos de albuterol en casa. Oak los medicamentos recetados seg?n las indicaciones. No comience booth prednisona hasta ma?sally, booth primera dosis ryan hoy en el departamento de emergencias. Seguimiento con booth m?dico de pulm?n y booth m?dico de atenci?n primaria. Si desarrolla s?ntomas nuevos o que empeoran, llame al 911 o regrese a la chucky de emergencias para glory evaluaci?n adicional. Prescriptions: New prednisone 20 mg tablet 40 mg PO DAILY Qty: 10 0RF benzonatate 100 mg capsule 100 mg PO TID PRN (Reason: cough) Qty: 30 0RF doxycycline hyclate 100 mg tablet 100 mg PO BID Qty: 10 0RF No Action Xolair 150 mg/mL syringe 300 mg subcut Q2W Qty: 4 11RF Fiasp FlexTouch U-100 Insulin 100 unit/mL (3 mL) insulin pen 6 unit subcut TID Qty: 15 5RF atorvastatin 80 mg tablet 80 mg PO BEDTIME Qty: [address] [facility] 10 billion cell -200 mg capsule, sprinkle 1 cap PO DAILY Qty: 30 6RF dextrose [Glutose-15] 40 % gel 15 g PO DIRECTED Qty: 112.5 5RF (DME) lancets [FreeStyle Lancets] 28 gauge misc See Rx Instructions .Route Qty: 100 5RF Rx Instructions: check blood sugars 3 times a day (DME) blood-glucose meter [[employer]Style Flash System] Kit See Rx Instructions .Route Qty: 1 0RF Rx Instructions: As directed gabapentin 400 mg capsule 400 mg PO BEDTIME Qty: 30 4RF Spiriva with HandiHaler 18 mcg capsule, w/inhalation device 1 cap inhalation DAILY Qty: 30 6RF prednisone 10 mg tablet 40 mg PO DAILY 5 Days Qty: 20 0RF (DME) pen needle, diabetic [UltiCare Pen Needle] 32 gauge x 5/32 needle See Rx Instructions .ROUTE .COMPLEX Qty: 100 5RF Dose Instruction: USE FOUR TIMES DAILY Rx Instructions: USE FOUR TIMES DAILY levothyroxine 75 mcg tablet 75 mcg PO QAM Qty: 90 4RF albuterol sulfate 90 mcg/actuation HFA aerosol inhaler 2 puff inhalation Q4-6H PRN (Reason: shortness of breath or wheezing) Qty: 6.7 0RF ipratropium-albuterol 0.5 mg-3 mg(2.5 mg base)/3 mL Solution For Nebulization 3 ml INHALATION Q6H PRN (Reason: Respiratory Distress) Certavite-Antioxidant 18-400 mg-mcg Tablet 1 tab PO DAILY acetaminophen [Tylenol Extra Strength] 500 mg tablet 1,000 mg PO Q8-10H PRN (Reason: pain) 7 Days Qty: 42 0RF prednisone 20 mg tablet 60 mg PO DAILY 4 Days Qty: 12 0RF doxycycline hyclate 100 mg capsule 100 mg PO BID 7 Days Qty: 14 0RF montelukast 10 mg tablet 10 mg PO BEDTIME clonazepam [Klonopin] 1 mg tablet 1 mg PO DAILY Rx Instructions: administer 30 minutes before bedtime (DME) Knee Support Brace Misc See Rx Instructions .ROUTE .MEDSUPPLY Qty: 2 0RF Rx Instructions: As directed senna 8.6 mg capsule 17.2 mg PO BEDTIME 30 Days Qty: 60 6RF zolpidem 10 mg tablet 10 mg PO BEDTIME PRN (Reason: Insomnia) risperidone 0.5 mg tablet 0.5 mg PO BID amlodipine 10 mg tablet 10 mg PO BEDTIME (DME) lancets 33 gauge misc See Rx Instructions Not Applicable DAILY Qty: 100 Rx Instructions: As directed (DME) FreeStyle Lite Strips Strip See Rx Instructions Not Applicable DAILY Qty: 10 Rx Instructions: As directed calcium carbonate-vitamin D3 600 mg(1,500mg) -400 unit tablet 1 tab PO BID potassium chloride 20 mEq tablet,ER particles/crystals 20 meq PO BID cetirizine 10 mg tablet 10 mg PO BEDTIME (DME) blood-glucose meter Kit See Rx Instructions .ROUTE DAILY Qty: 1 Rx Instructions: As directed Combivent Respimat 20-100 mcg/actuation mist 1 puff inhalation QID fluticasone propion-salmeterol 250-50 mcg/dose blister with device 1 ea inhalation BID enalapril maleate 20 mg tablet 20 mg PO DAILY acetaminophen 325 mg tablet 325 mg PO pyridoxine (vitamin B6) 100 mg tablet 100 mg PO DAILY Qty: 90 3RF omeprazole 20 mg capsule,delayed release(DR/EC) 20 mg PO BID@0630,1630 Qty: 60 6RF bisacodyl [Dulcolax (bisacodyl)] 5 mg tablet,delayed release (DR/EC) See Rx Instructions PO BEDTIME 30 Days Qty: 90 6RF Rx Instructions: 2 tabs qhs and 1 qam orally bedtime; docusate sodium 100 mg capsule 100 mg PO BID 30 Days Qty: 60 6RF fluoride (sodium) [SF 5000 Plus] 1.1 % cream PO buspirone 7.5 mg tablet 7.5 mg PO BID tramadol 50 mg tablet 50 mg PO BID PRN sennosides [senna] 8.6 mg tablet 17.2 mg PO BEDTIME emtricitabine-tenofovir (TDF) 200-300 mg tablet 1 tab PO DAILY peg 3350-electrolytes [Golytely] 236-22.74-6.74 -5.86 gram recon soln 240 ml PO Q10M 1 Days Qty: 4000 0RF Rx Instructions: until fecal effluent is clear; do not exceed a total volume of 2,000 mL metoclopramide HCl [Reglan] 10 mg tablet 10 mg PO TID Qty: 90 6RF Trulance 3 mg tablet 3 mg PO DAILY 30 Days Qty: 30 6RF Rx Instructions: Take one tablet by mouth once a day naloxone 4 mg/actuation spray,non-aerosol 0 spray intranasal diclofenac sodium 1 % gel topical Ear Drops (carbamide peroxide) 6.5 % drops 0 drp otic (ears) Referrals: [facility] [place] Pulmonology Services [Provider Group] Sariah Vickers DIRECTOR OF SALES SUPPORT [Primary Care Provider] - Interventions: ED Discharge Assessment Last Done: 05/10/22 12:52 Discharge Date/Time: 05/10/22 12:52 Print Language: Eritrean
--- NOTE | 2022-05-10 10:40 | PC.NURSE ---
Patient with some SOB and congestion with cough since last night reports 8/10 pain some wheezing noted. Patient primarily Latvian speaking understands some gibraltarian. No distress noted denies smoking. AOx 4 neuros intact will CTM
--- NOTE | 2022-05-10 10:47 | PC.NURSE ---
ED radiology at bedside
[2022-05-10] MEDS: predniSONE 5 MG TABLET 50 MG PO (10:51)
[2022-05-10] MEDS: Albuterol Sulfate (0.083%) 2.5 MG/3 ML VIAL.NEB 7.5 MG INHALE (11:01)
[2022-05-10 11:02] VITALS: PULSE 86; RESP 18; O2SAT 95
[2022-05-10 12:51] VITALS: BP 121/85; PULSE 76; RESP 18; TEMP 36.6; O2SAT 97
== END 2022-05-10 12:52 | disposition home or self-care (01) ==
PROVIDERS: Emergency Provider Student in an Organized Health Care Education/Training Program; PCP Nurse Practitioner Primary Care
DX: J20.9 Acute bronchitis, unspecified (principal); R06.02 Shortness of breath; R09.89 Other specified symptoms and signs involving the circulatory and respiratory systems; Z79.899 Other long term (current) drug therapy
CPT/HCPCS: 71045; 93005; 94640; 99284; 99285

== ENCOUNTER 2022-05-16 09:07 | Emergency (ER) | payer OTHER, SELFPAY ==
--- NOTE | ~2022-05-16 | CT_ITS ---
EXAMINATION: CT HEAD WITHOUT CONTRAST CLINICAL INFORMATION: Acute headache and vertigo COMPARISON: CT head from 09/05/2021 TECHNIQUE: Contiguous axial imaging was performed from the skull base to vertex without intravenous administration of contrast. This CT examination was performed using dose optimization techniques as appropriate, variously including the following: *Automated exposure control *Adjustment of mA and/or kV according to patient size (this includes techniques or standardized protocols for targeted exams where dose is matched to indication/reason for exam; i.e. extremities or head) *Use of iterative reconstruction technique DLP: 657 mGy-cm FINDINGS: There is no evidence of acute intracranial hemorrhage or territorial infarction. No abnormal mass effect or midline shift is seen. [place] to white matter differentiation is well preserved. No extra-axial fluid collections are identified. The ventricles are normal in size. There is no abnormal attenuation within the brain parenchyma. The osseous structures and soft tissues are normal. The mastoid air cells and visualized portions of the paranasal sinuses are well aerated. CT/CT head/brain wo IV con IMPRESSION: No acute intracranial pathology.
[2022-05-16 09:10] VITALS: BP 149/90; PULSE 78; RESP 17; TEMP 36.2; O2SAT 97; BMI 37.6
--- NOTE | 2022-05-16 09:15 | ECG_ITS ---
Test Reason : hypertension Blood Pressure : / mmHG Vent. Rate : 075 BPM Atrial Rate : 075 BPM P-R Int : 212 ms QRS Dur : 106 ms QT Int : 386 ms P-R-T Axes : 050 -48 031 degrees QTc Int : 431 ms Sinus rhythm with 1st degree A-V block Left anterior fascicular block Minimal voltage criteria for LVH, may be normal variant ( Bala product ) Abnormal ECG When compared with ECG of 10-MAY-2022 10:04, No significant change was found Referred By: Generic ED Physician Electronically Signed By:LIVE YANEZ
[2022-05-16 09:29] LABS: MANUAL DIFF FLAG NO
[2022-05-16 09:31] LABS: Basophils Percent Auto 0.5 % (0-2); Eosinophils Absolute Auto 0.1 X10*3/uL (0.0-0.4); Eosinophils Percent Auto 1.4 % (0-4); Hematocrit 42.9 % (37.0-47.0); Hemoglobin 14.2 g/dl (12.0-16.0); Imm Gran Abs Auto 0.02 X10*3/uL (0.00-0.03); Imm Gran Pct Auto 0.3 % (0.0-0.4); Lymphocytes Absolute Auto 3.2 X10*3/uL (1.2-4.9); Lymphocytes Percent Auto 48.7 % (20-40); Mean Corpuscular HGB Conc 33.1 g/dl (31.0-35.0); Mean Corpuscular Hemoglobin 31.3 pg (27.0-33.0); Mean Corpuscular Volume 94.5 fL (80.0-98.0); Mean Platelet Volume 9.4 fL (9.4-12.3); Monocytes Absolute Auto 0.6 X10*3/uL (0.1-1.2); Monocytes Percent Auto 8.6 % (2-11); Neutrophils Absolute Auto 2.7 x10*3/uL (2.0-8.3); Neutrophils Percent Auto 40.5 % (45-73); Platelet Count 278 X10*3/uL (160-400); Red Blood Count 4.54 X10*6/uL (4.20-5.50); Red Cell Distribution Width 13.6 % (11.0-16.0); White Blood Count 6.6 X10*3/uL (4.8-10.8)
[2022-05-16 09:32] VITALS: BP 147/78; PULSE 79; RESP 21; TEMP 37; O2SAT 96
[2022-05-16 09:41] LABS: Anion Gap 14 (12-20); Blood Urea Nitrogen 15 mg/dL (9-16); Calcium 9.3 mg/dL (8.4-10.2); Carbon Dioxide 26 mmol/L (22-29); Chloride 107 mmol/L (96-108); Creatinine Clr Calc Pharmacy 64.1; Estimated Glomerular Filt Rate 58; Glucose Random 142 mg/dL (60-115); Potassium 3.5 mmol/L (3.3-5.1); Sodium 143 mmol/L (135-145)
--- NOTE | 2022-05-16 09:44 | PC.NURSE ---
optical instrument assembler at bedside with this business writer and MD to go over symptoms. Pt became tearful with MD that she was scared. Reported dizziness at this time, pt placed on monitor, vitals stable. awaiting further testing. Lab work has been sent down, EKG completed.
[2022-05-16 09:50] LABS: Troponin-I High Sensitivity < 3.5 ng/L (<3.5-17.0)
[2022-05-16 10:28] VITALS: BP 144/85; PULSE 69; RESP 15; O2SAT 97
--- NOTE | 2022-05-16 10:36 | PC.NURSE ---
Pt got up to use the bathroom, she was able to walk steady down the cain way with staff present
--- NOTE | 2022-05-16 10:59 | ED_ITS ---
HPI - General Adult General Chief complaint: General Medical Stated complaint: high blood pressure Time Seen by Provider: 05/16/22 09:27 Source: patient Mode of arrival: ambulatory Limitations: no limitations History of Present Illness HPI narrative: 61-year-old female presents with elevated blood pressure, dizziness and headache. Symptoms started over the last 24 hours. She describes them as severe in nature. Her dizziness is worse with movement and eye gaze. She denies any chest pain with exertion chest pain, orthopnea, PND, palpitations. She reports some lightheadedness symptoms as well. She has had some nausea but no vomiting. No fevers or chills. No sore throat, cough runny nose. She has a headache which is generalized. Does not radiate. Not associated with photo and phonophobia. Patient has had a had similar headaches in the past. Gradual in onset. Did not occur suddenly. She denies any neck pain or stiffness. She denies any fevers or chills. Related Data Home Medications Medication Instructions Recorded Confirmed amlodipine 10 mg tablet 10 mg PO BEDTIME 11/20/19 04/05/22 blood sugar diagnostic #10 ea 11/20/19 04/05/22 blood-glucose meter #1 ea 11/20/19 04/05/22 calcium carbonate 600 mg-vitamin 1 tab PO BID 11/20/19 04/05/22 D3 10 mcg (400 unit) tablet cetirizine 10 mg tablet 10 mg PO BEDTIME 11/20/19 04/05/22 lancets 33 gauge #100 ea 11/20/19 04/05/22 potassium chloride 20 mEq 20 meq PO BID 11/20/19 04/05/22 tablet,extended release(part/cryst) risperidone 0.5 mg tablet 0.5 mg PO BID 11/20/19 04/05/22 zolpidem 10 mg tablet 10 mg PO BEDTIME PRN Insomnia 11/20/19 04/05/22 clonazepam 1 mg tablet (Klonopin) 1 mg PO DAILY 03/08/20 04/05/22 montelukast 10 mg tablet 10 mg PO BEDTIME 03/08/20 04/05/22 fluticasone 250 mcg-salmeterol 50 1 ea inhalation BID 06/29/21 04/05/22 mcg/dose blistr powdr for inhalation ipratropium 20 mcg-albuterol 100 1 puff inhalation QID 06/29/21 04/05/22 mcg/actuation mist for inhalation (Combivent Respimat) ipratropium 0.5 mg-albuterol 3 mg 3 ml inhalation Q6H PRN 07/06/21 04/05/22 (2.5 mg base)/3 mL nebulization Respiratory Distress soln multivitamin-ferrous 1 tab PO DAILY 07/06/21 04/05/22 fumarate-folic acid 18 mg-400 mcg tablet (Certavite-Antioxidant) fluoride (sodium) 1.1 % dental appl PO 10/16/21 04/05/22 cream (SF 5000 Plus) enalapril maleate 20 mg tablet 20 mg PO DAILY 01/24/22 04/05/22 buspirone 7.5 mg tablet 7.5 mg PO BID 01/31/22 04/05/22 emtricitabine 200 mg-tenofovir 1 tab PO DAILY 01/31/22 04/05/22 disoproxil fumarate 300 mg tablet sennosides 8.6 mg tablet (senna) 17.2 mg PO BEDTIME constipation 01/31/22 04/05/22 tramadol 50 mg tablet 50 mg PO BID PRN 01/31/22 04/05/22 acetaminophen 325 mg tablet 325 mg PO 04/05/22 04/05/22 carbamide peroxide 6.5 % ear drops 0 drp otic (ears) 05/07/22 (Ear Drops (carbamide peroxide)) diclofenac sodium 1 % topical gel g topical 05/07/22 naloxone 4 mg/actuation nasal spray 0 spray intranasal 05/07/22 Previous Rx's Medication Instructions Recorded leg brace (Knee Support Brace) #2 ea 03/08/20 albuterol sulfate 90 mcg/actuation 2 puff inhalation Q4-6H PRN 09/29/20 aerosol inhaler shortness of breath or wheezing #6.7 grams sennosides 8.6 mg capsule (senna) 17.2 mg PO BEDTIME constipation 30 03/19/21 days #60 caps omalizumab 150 mg/mL subcutaneous 300 mg (2 mL) subcut Q2W #4 mL 08/31/21 syringe (Xolair) acetaminophen 500 mg tablet 1,000 mg PO Q8-10H PRN pain 7 days 09/05/21 (Tylenol Extra Strength) #42 tabs insulin aspart 6 unit subcut TID #15 mL 12/14/21 (niacinamide)(U-100) 100 unit/mL(3 mL) subcutaneous pen (Fiasp FlexTouch U-100 Insulin) bisacodyl 5 mg tablet,delayed See Rx Instructions PO BEDTIME 30 12/27/21 release (Dulcolax (bisacodyl)) days #90 tabs docusate sodium 100 mg capsule 100 mg PO BID 30 days #60 caps 12/27/21 omeprazole 20 mg capsule,delayed 20 mg PO BID@0630,1630 #60 caps 12/27/21 release Lactobacil rhamnosus GG 10 billion 1 cap PO DAILY #30 caps 01/02/22 cell-inulin 200 mg sprinkle capsule ([facility]) atorvastatin 80 mg tablet 80 mg PO BEDTIME #30 tabs 01/02/22 metoclopramide HCl 10 mg tablet 10 mg PO TID #90 tabs 01/31/22 (Reglan) peg 3350-electrolytes 236 240 ml PO Q10M 1 day #4,000 mL 01/31/22 gram-22.74 gram-6.74 gram-5.86 gram solution (Golytely) plecanatide 3 mg tablet (Trulance) 3 mg PO DAILY 30 days #30 tabs 01/31/22 dextrose 40 % oral gel (Glutose-15) 15 g PO DIRECTED for 02/06/22 hypoglycemia #112.5 grams blood-glucose meter (FreeStyle #1 ea 02/28/22 Flash System kit) lancets 28 gauge (FreeStyle #100 ea 02/28/22 Lancets) gabapentin 400 mg capsule 400 mg PO BEDTIME #30 caps 03/06/22 tiotropium bromide 18 mcg capsule 1 cap inhalation DAILY #30 caps 03/14/22 with inhalation device (Spiriva with HandiHaler) prednisone 10 mg tablet 40 mg PO DAILY 5 days #20 tabs 03/15/22 pen needle, diabetic 32 gauge x ##100 03/29/22 (UltiCare Pen Needle) pyridoxine (vitamin B6) 100 mg 100 mg PO DAILY #90 tabs 04/05/22 tablet doxycycline hyclate 100 mg capsule 100 mg PO BID 7 days #14 caps 02/19/23 prednisone 20 mg tablet 60 mg PO DAILY 4 days #12 tabs 04/07/22 levothyroxine 75 mcg tablet 75 mcg PO QAM #90 tabs 04/11/22 benzonatate 100 mg capsule 100 mg PO TID PRN cough #30 caps 05/10/22 doxycycline hyclate 100 mg tablet 100 mg PO BID #10 tabs 05/10/22 prednisone 20 mg tablet 40 mg PO DAILY #10 tabs 05/10/22 ondansetron 4 mg disintegrating 4 mg PO Q8H PRN nausea and 05/16/22 tablet vomiting #10 tabs Allergies Allergy/AdvReac Type Severity Reaction Status Date / Time aspirin [Aspirin] Allergy Mild ITCHY Verified 05/07/22 14:37 THROAT azithromycin Allergy Unknown Unknown Verified 05/07/22 14:37 naproxen Allergy Unknown Unknown Verified 05/07/22 14:37 simvastatin Allergy Unknown Unknown Verified 05/07/22 14:37 Fish Containing Products Allergy Swelling Verified 05/07/22 14:37 onion [ONION] AdvReac Mild RED FACE Verified 05/07/22 14:37 [facility] Past Medical History Medical History Allergic rhinitis Anxiety and depression Bronchitis Chest pain Cocaine abuse COPD exacerbation Diabetes DVT (deep venous thrombosis) Fibromyalgia HTN (hypertension) Hypothyroidism Low vitamin D level Non-toxic multinodular goiter PTSD (post-traumatic stress disorder) Renal calculi Spondylosis of cervical region without myelopathy or radiculopathy UTI (urinary tract infection) Vertigo Surgical History H/O colonoscopy with polypectomy History of esophagogastroduodenoscopy (EGD) History of hysterectomy History of lithotripsy History of selective injection of anesthetic agent around lumbar nerve root Hx of right breast biopsy Family History Family History Father No problems noted. 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 Physical Exam ED Vital Signs: Vital Signs - 24 hr 05/16/22 09:10 05/16/22 09:32 05/16/22 10:28 Temperature 97.1 F 98.6 F Pulse Rate 78 79 69 Respiratory Rate 17 21 H 15 Blood Pressure 149/90 H 147/78 H 144/85 H Pulse Oximetry 97 96 97 Oxygen Delivery Method Room Air Room Air Room Air 05/16/22 12:10 Temperature 97.8 F Pulse Rate 64 Respiratory Rate 18 Blood Pressure 136/81 Pulse Oximetry 98 Oxygen Delivery Method Room Air BMI result Body Mass Index 37.6 GEN: Well developed, no acute distress, alert, oriented HEENT: Normocephalic, atraumatic, normal external ears, nose appears normal, no oropharyngeal edema or exudates Eyes: Normal to appearance Neck: Supple, no lymphadenopathy Respiratory: Talks in complete sentences, no respiratory distress, clear to auscultation bilaterally Cardiovascular: Regular rate and rhythm, no murmurs rubs or gallops Abdomen: Soft, nontender, nondistended, no guarding, no rebound Back: No CVA tenderness Extremities: No clubbing cyanosis or edema Neurologic: No focal neurologic deficits, cranial nerves 2-12 intact, strength is 5/5 bilaterally, gait normal Skin: No rash Course Course Course Narrative: A 61-year-old female presents with headache, vertigo, lightheadedness, elevated blood pressure. My examination is benign. There is no focal neurologic deficits. There is no nystagmus. Doubt mass effect. She does have a history of vertigo but not significantly associated with headache. She denies any chest pain, doubt acute coronary syndrome. She does also have some mild nausea which I believe is associated with vertigo and unlikely to be associated with a viral gastroenteritis. Patient will have routine laboratory analysis, CT scan of the head and symptomatic treatment with frequent re-evaluations. Reevaluation(s) Reevaluation #1: Patient is feeling a little bit better. I will prescribe her meclizine and ondansetron. She will follow up with her primary care provider. Discussed all results. All questions were addressed and answered. Time: 14:19 Medical Decision Making Medical Decision Making MDM Narrative: A 61-year-old female presents with headache, vertigo, lightheadedness, elevated blood pressure. My examination is benign. There is no focal neurologic deficits. There is no nystagmus. Doubt mass effect. She does have a history of vertigo but not significantly associated with headache. She denies any chest pain, doubt acute coronary syndrome. She does also have some mild nausea which I believe is associated with vertigo and unlikely to be associated with a viral gastroenteritis. Patient will have routine laboratory analysis, CT scan of the head and symptomatic treatment with frequent re-evaluations. Differential Diagnosis Differential Diagnoses: The differential diagnosis associated with the presentation includes (Peripheral vertigo, BPPV, labyrinthitis, Meniere's dis ease, vestibular neuritis, mass effect, hyponatremia, electrolyte abnormality, glucose related issue, anemia, migraine, tension headache, cluster headache, sinus headache) Vertigo, headache Admission/Observation Consideration of admission/observation: Escalation of care including admission/observation considered Lab Data MDM Lab Attestation statement: I reviewed the patient's lab results. 05/16/22 09:24 05/16/22 09:24 Labs: Lab Results 05/16/22 05/16/22 05/16/22 Range/Units 09:24 09:24 09:24 WBC 6.6 (4.8-10.8) X10*3/uL RBC 4.54 (4.20-5.50) X10*6/uL Hgb 14.2 (12.0-16.0) g/dl Hct 42.9 (37.0-47.0) % MCV 94.5 (80.0-98.0) fL MCH 31.3 (27.0-33.0) pg MCHC 33.1 (31.0-35.0) g/dl RDW 13.6 (11.0-16.0) % Plt Count 278 (160-400) X10*3/uL MPV 9.4 (9.4-12.3) fL Immature Gran % (Auto) 0.3 (0.0-0.4) % Neut % (Auto) 40.5 L (45-73) % Lymph % (Auto) 48.7 H (20-40) % [place] % (Auto) 8.6 (2-11) % Eos % (Auto) 1.4 (0-4) % Baso % (Auto) 0.5 (0-2) % Lymph # (Auto) 3.2 (1.2-4.9) X10*3/uL [place] # (Auto) 0.6 (0.1-1.2) X10*3/uL Eos # (Auto) 0.1 (0.0-0.4) X10*3/uL Baso # (Auto) 0.0 (0.0-0.2) X10*3/uL Abs Immat Gran (auto) 0.02 (0.00-0.03) X10*3/uL Absolute Neuts (auto) 2.7 (2.0-8.3) x10*3/uL Absolute Nucleated RBC 0.000 (0.0-0.012) X10*3/uL Nucleated RBC % (auto) 0.0 (0.0-0.2) /100WBC Sodium 143 (135-145) mmol/L Potassium 3.5 (3.3-5.1) mmol/L Chloride 107 (96-108) mmol/L Carbon Dioxide 26 (22-29) mmol/L Anion Gap 14 (12-20) BUN 15 (9-16) mg/dL Creatinine 0.98 (0.5-1.4) mg/dL Estim Creat Clear Calc 64.1 Estimated GFR 58 POC Glucose (60-115) mg/dL Random Glucose 142 H (60-115) mg/dL Calcium 9.3 (8.4-10.2) mg/dL Troponin I High Sens < 3.5 (<3.5-17.0) ng/L 05/16/22 Range/Units 12:57 WBC (4.8-10.8) X10*3/uL RBC (4.20-5.50) X10*6/uL Hgb (12.0-16.0) g/dl Hct (37.0-47.0) % MCV (80.0-98.0) fL MCH (27.0-33.0) pg MCHC (31.0-35.0) g/dl RDW (11.0-16.0) % Plt Count (160-400) X10*3/uL MPV (9.4-12.3) fL Immature Gran % (Auto) (0.0-0.4) % Neut % (Auto) (45-73) % Lymph % (Auto) (20-40) % [place] % (Auto) (2-11) % Eos % (Auto) (0-4) % Baso % (Auto) (0-2) % Lymph # (Auto) (1.2-4.9) X10*3/uL [place] # (Auto) (0.1-1.2) X10*3/uL Eos # (Auto) (0.0-0.4) X10*3/uL Baso # (Auto) (0.0-0.2) X10*3/uL Abs Immat Gran (auto) (0.00-0.03) X10*3/uL Absolute Neuts (auto) (2.0-8.3) x10*3/uL Absolute Nucleated RBC (0.0-0.012) X10*3/uL Nucleated RBC % (auto) (0.0-0.2) /100WBC Sodium (135-145) mmol/L Potassium (3.3-5.1) mmol/L Chloride (96-108) mmol/L Carbon Dioxide (22-29) mmol/L Anion Gap (12-20) BUN (9-16) mg/dL Creatinine (0.5-1.4) mg/dL Estim Creat Clear Calc Estimated GFR POC Glucose 135 H (60-115) mg/dL Random Glucose (60-115) mg/dL Calcium (8.4-10.2) mg/dL Troponin I High Sens (<3.5-17.0) ng/L Independent Interpretation I performed an independent interpretation of an: EKG (Normal sinus rhythm heart rate 75, first-degree AV block, no acute ST elevations depressions, nonspecific T-wave changes, possible LVH) and CT Scan (NAD CT head) Radiology Impression Discussion of test interpretation with radiology: I have reviewed the radiologist's reading. ( CT/CT head/brain wo IV con IMPRESSION: No acute intracranial pathology. Dictated By:Jeffrey Ragsdale MDSigned By:<Electronically signed by Jeffrey Ragsdale MD in [place]>05/16/22 [id number]) Tests considered The following testing was considered but not selected: MRI, chest x-ray Prescription Management I considered prescription management with: Pain Medication Chronic Conditions Patient?s care impacted by: Diabetes and Hypertension Discharge Plan Discharge Clinical Impression: Vertigo, Elevated blood pressure reading, Headache Patient Disposition: Home, Self-Care Instructions: Vertigo (ED), Acute Headache (ED), Chronic Hypertension (DC), Dizziness (ED) Prescriptions: New ondansetron 4 mg tablet,disintegrating 4 mg PO Q8H PRN (Reason: nausea and vomiting) Qty: 10 0RF No Action Xolair 150 mg/mL syringe 300 mg subcut Q2W Qty: 4 11RF Fiasp FlexTouch U-100 Insulin 100 unit/mL (3 mL) insulin pen 6 unit subcut TID Qty: 15 5RF atorvastatin 80 mg tablet 80 mg PO BEDTIME Qty: 30 4RF [facility] 10 billion cell -200 mg capsule, sprinkle 1 cap PO DAILY Qty: 30 6RF dextrose [Glutose-15] 40 % gel 15 g PO DIRECTED Qty: 112.5 5RF (DME) lancets [FreeStyle Lancets] 28 gauge misc See Rx Instructions .Route Qty: 100 5RF Rx Instructions: check blood sugars 3 times a day (DME) blood-glucose meter [mo9 (moKredit)Style Flash System] Kit See Rx Instructions .Route Qty: 1 0RF Rx Instructions: As directed gabapentin 400 mg capsule 400 mg PO BEDTIME Qty: 30 4RF Spiriva with HandiHaler 18 mcg capsule, w/inhalation device 1 cap inhalation DAILY Qty: 30 6RF prednisone 10 mg tablet 40 mg PO DAILY 5 Days Qty: 20 0RF (DME) pen needle, diabetic [UltiCare Pen Needle] 32 gauge x 5/32 needle See Rx Instructions .ROUTE .COMPLEX Qty: 100 5RF Dose Instruction: USE FOUR TIMES DAILY Rx Instructions: USE FOUR TIMES DAILY levothyroxine 75 mcg tablet 75 mcg PO QAM Qty: 90 4RF albuterol sulfate 90 mcg/actuation HFA aerosol inhaler 2 puff inhalation Q4-6H PRN (Reason: shortness of breath or wheezing) Qty: 6.7 0RF ipratropium-albuterol 0.5 mg-3 mg(2.5 mg base)/3 mL Solution For Nebulization 3 ml INHALATION Q6H PRN (Reason: Respiratory Distress) Certavite-Antioxidant 18-400 mg-mcg Tablet 1 tab PO DAILY acetaminophen [Tylenol Extra Strength] 500 mg tablet 1,000 mg PO Q8-10H PRN (Reason: pain) 7 Days Qty: 42 0RF prednisone 20 mg tablet 60 mg PO DAILY 4 Days Qty: 12 0RF doxycycline hyclate 100 mg capsule 100 mg PO BID 7 Days Qty: 14 0RF prednisone 20 mg tablet 40 mg PO DAILY Qty: 10 0RF benzonatate 100 mg capsule 100 mg PO TID PRN (Reason: cough) Qty: 30 0RF doxycycline hyclate 100 mg tablet 100 mg PO BID Qty: 10 0RF montelukast 10 mg tablet 10 mg PO BEDTIME clonazepam [Klonopin] 1 mg tablet 1 mg PO DAILY Rx Instructions: administer 30 minutes before bedtime (DME) Knee Support Brace Misc See Rx Instructions .ROUTE .MEDSUPPLY Qty: 2 0RF Rx Instructions: As directed senna 8.6 mg capsule 17.2 mg PO BEDTIME 30 Days Qty: 60 6RF zolpidem 10 mg tablet 10 mg PO BEDTIME PRN (Reason: Insomnia) risperidone 0.5 mg tablet 0.5 mg PO BID amlodipine 10 mg tablet 10 mg PO BEDTIME (DME) lancets 33 gauge misc See Rx Instructions Not Applicable DAILY Qty: 100 Rx Instructions: As directed (DME) FreeStyle Lite Strips Strip See Rx Instructions Not Applicable DAILY Qty: 10 Rx Instructions: As directed calcium carbonate-vitamin D3 600 mg(1,500mg) -400 unit tablet 1 tab PO BID potassium chloride 20 mEq tablet,ER particles/crystals 20 meq PO BID cetirizine 10 mg tablet 10 mg PO BEDTIME (DME) blood-glucose meter Kit See Rx Instructions .ROUTE DAILY Qty: 1 Rx Instructions: As directed Combivent Respimat 20-100 mcg/actuation mist 1 puff inhalation QID fluticasone propion-salmeterol 250-50 mcg/dose blister with device 1 ea inhalation BID enalapril maleate 20 mg tablet 20 mg PO DAILY acetaminophen 325 mg tablet 325 mg PO pyridoxine (vitamin B6) 100 mg tablet 100 mg PO DAILY Qty: 90 3RF omeprazole 20 mg capsule,delayed release(DR/EC) 20 mg PO BID@0630,1630 Qty: 60 6RF bisacodyl [Dulcolax (bisacodyl)] 5 mg tablet,delayed release (DR/EC) See Rx Instructions PO BEDTIME 30 Days Qty: 90 6RF Rx Instructions: 2 tabs qhs and 1 qam orally bedtime; docusate sodium 100 mg capsule 100 mg PO BID 30 Days Qty: 60 6RF fluoride (sodium) [SF 5000 Plus] 1.1 % cream PO buspirone 7.5 mg tablet 7.5 mg PO BID tramadol 50 mg tablet 50 mg PO BID PRN sennosides [senna] 8.6 mg tablet 17.2 mg PO BEDTIME emtricitabine-tenofovir (TDF) 200-300 mg tablet 1 tab PO DAILY peg 3350-electrolytes [Golytely] 236-22.74-6.74 -5.86 gram recon soln 240 ml PO Q10M 1 Days Qty: 4000 0RF Rx Instructions: until fecal effluent is clear; do not exceed a total volume of 2,000 mL metoclopramide HCl [Reglan] 10 mg tablet 10 mg PO TID Qty: 90 6RF Trulance 3 mg tablet 3 mg PO DAILY 30 Days Qty: 30 6RF Rx Instructions: Take one tablet by mouth once a day naloxone 4 mg/actuation spray,non-aerosol 0 spray intranasal diclofenac sodium 1 % gel topical Ear Drops (carbamide peroxide) 6.5 % drops 0 drp otic (ears) Referrals: Sariah Vickers, PHYSICAL THERAPY PROFESSOR [Primary Care Provider] - 3 days Print Language: Sudanese
[2022-05-16 12:10] VITALS: BP 136/81; PULSE 64; RESP 18; TEMP 36.6; O2SAT 98
[2022-05-16 13:01] LABS: Glucose, Whole Blood 135 mg/dL (60-115)
--- NOTE | 2022-05-16 14:12 | PC.NURSE ---
Patient telling translator/interpreter and nursing that she was going to walk out if the doctor didnt come and talk with her, She did not understand what was taking so long. She wanted lab results as well. MD made aware, he stated he was making his rounds and would be there shortly. Pt walked out AMA, did not sign any paperwork or AMA sheet, no IV was present on patient. MD made aware she walked out of ED.
--- NOTE | 2022-05-16 14:27 | PC.NURSE ---
staff able to get patient back into room, she was able to speak with the provider, and is being discharged at this time
== END 2022-05-16 14:30 | disposition home or self-care (01) ==
PROVIDERS: Emergency Provider Emergency Medicine; PCP Nurse Practitioner Primary Care
DX: R42 Dizziness and giddiness (principal); R03.0 Elevated blood-pressure reading, without diagnosis of hypertension; R51.9 Headache, unspecified; R94.31 Abnormal electrocardiogram [ECG] [EKG]; Z79.899 Other long term (current) drug therapy
CPT/HCPCS: 36415; 70450; 80048; 82947; 84484; 85025; 93005; 99284

== ENCOUNTER 2022-05-17 12:41 | Outpatient (REF) | payer OTHER, SELFPAY | END 2022-05-17 12:42 | disposition home or self-care (01) | LOC: HO.MDS 12:41 | PROVIDERS: Visit Provider Internal Medicine Pulmonary Disease | DX: J45.50 Severe persistent asthma, uncomplicated (principal) | CPT/HCPCS: 96372; J2357 ==

== ENCOUNTER → 2022-05-30 12:58 | Outpatient (BNVA) | payer OTHER, SELFPAY | PROVIDERS: PCP Nurse Practitioner Primary Care; Visit Provider Internal Medicine Endocrinology, Diabetes & Metabolism | DX: E11.65 Type 2 diabetes mellitus with hyperglycemia (principal); E03.9 Hypothyroidism, unspecified; E04.2 Nontoxic multinodular goiter; Z79.52 Long term (current) use of systemic steroids | CPT/HCPCS: 82947; 83036; 99212 ==

== ENCOUNTER 2022-05-31 09:27 | Outpatient (REF) | payer OTHER, SELFPAY | END 2022-05-31 09:28 | disposition home or self-care (01) | LOC: HO.MDS 09:27 | PROVIDERS: Visit Provider Internal Medicine Pulmonary Disease | DX: J45.50 Severe persistent asthma, uncomplicated (principal) | CPT/HCPCS: 96372 ==

== ENCOUNTER 2022-06-07 11:35 | Day surgery (SDC) | payer OTHER, SELFPAY ==
[2022-05-28 16:28] VITALS: BMI 36.5
--- NOTE | 2022-06-06 11:06 | HO.ANESPROP2 ---
Documented by User: Swapna Lockwood NP 06/06/22 11:09 HPI - Anesthesia Eval Consult details Narrative: 61yo F for Left Genicular Nerve Block Diagnostic 04/2022 [facility] [place] with vertigo, elevated BP Hx cocaine abuse, no further info avail during chart review [facility] Active Problems Active Problems: All Active Problems (Updated 05/17/22 @ 00:00 by Doris Guo) Patellofemoral arthritis of left knee (Acute) Trochanteric bursitis of right hip (Acute) Chronic SI joint pain (Acute) COVID-19 (Acute) COVID-19 (Acute) Cubital tunnel syndrome on right (Acute) Carpal tunnel syndrome of right wrist (Acute) Renal calculi (Acute) UTI (urinary tract infection) (Acute) Tubular adenoma of colon (Acute) Hypertension (Acute) High cholesterol (Acute) NIDDY (non-insulin dependent diabetes mellitus in young) (Acute) COPD (chronic obstructive pulmonary disease) (Acute) Smoker (Acute) PTSD (post-traumatic stress disorder) (Acute) Depression with anxiety (Acute) Fibromyalgia (Acute) Cervical spondylosis (Acute) Plantar fasciitis (Acute) CTS (carpal tunnel syndrome) (Acute) Allergic rhinitis (Acute) Menopausal state (Acute) Nephrolithiasis (Acute) OKEEFE (nonalcoholic steatohepatitis) (Acute) Chronic idiopathic constipation (Acute) GERD (gastroesophageal reflux disease) (Acute) Ectatic aorta (Acute) Type 2 diabetes mellitus with hyperglycemia (Acute) Severe persistent asthma (Acute) Environmental allergies (Acute) Dry mouth (Acute) Bilateral knee pain (Acute) Bilateral hand pain (Acute) Well woman exam with routine gynecological exam (Acute) Papanicolaou smear for cervical cancer screening (Acute) Yeast infection (Acute) Hemorrhoids (Acute) Osteoarthritis of knees, bilateral (Acute) Spondylosis of lumbar region without myelopathy or radiculopathy (Acute) Bronchitis (Acute) Candidiasis of mouth and esophagus (Acute) Varicose veins of left lower extremity with inflammation (Acute) Acute asthma exacerbation (Acute) Vulvovaginitis (Acute) Tubular adenoma of colon (Acute) Asthma (Acute) Preop pulmonary/respiratory exam (Acute) Chest pain (Acute) Bronchitis (Acute) COPD exacerbation (Acute) Non-toxic multinodular goiter (Acute) Hypothyroidism (Acute) Past Medical History Medical History Allergic rhinitis Anxiety and depression Bronchitis Chest pain Cocaine abuse COPD exacerbation Diabetes DVT (deep venous thrombosis) Fibromyalgia HTN (hypertension) Hypothyroidism Low vitamin D level Non-toxic multinodular goiter PTSD (post-traumatic stress disorder) Renal calculi Spondylosis of cervical region without myelopathy or radiculopathy UTI (urinary tract infection) Vertigo Family History Family History Father No problems noted. Mother Myocardial infarction CVA (cerebral vascular accident) Family history of problems with anesthesia: No Surgical History Surgical History H/O colonoscopy with polypectomy History of esophagogastroduodenoscopy (EGD) History of hysterectomy History of lithotripsy History of selective injection of anesthetic agent around lumbar nerve root Hx of right breast biopsy History of Problems with Anesthesia: No Social History Social History Household Members: None Alcohol intake: unknown Patient Tobacco Use Status: Never used Tobacco Are you DNR?: No Advance Directives: No Advance Directives Information Provided: Yes Nutrition Risks: No Nutritional Risk Current occupational status: disabled 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 Meds Allergies Allergy/AdvReac Type Severity Reaction Status Date / Time aspirin [Aspirin] Allergy Mild ITCHY Verified 06/07/22 12:16 THROAT azithromycin Allergy Unknown Unknown Verified 06/07/22 12:16 naproxen Allergy Unknown Unknown Verified 06/07/22 12:16 simvastatin Allergy Unknown Unknown Verified 06/07/22 12:16 Fish Containing Products Allergy Swelling Verified 06/07/22 12:16 onion [ONION] AdvReac Mild RED FACE Verified 06/07/22 12:16 Home Medications Medication Instructions Recorded Confirmed Last Taken Type amlodipine 10 mg tablet 10 mg PO BEDTIME 11/20/19 05/30/22 05/01/21 History blood sugar diagnostic #10 ea 11/20/19 05/30/22 Unknown History blood-glucose meter #1 ea 11/20/19 05/30/22 Unknown History calcium carbonate 600 mg-vitamin 1 tab PO BID 11/20/19 05/30/22 Unknown History D3 10 mcg (400 unit) tablet cetirizine 10 mg tablet 10 mg PO BEDTIME 11/20/19 05/30/2222 History lancets 33 gauge #100 ea 11/20/19 05/30/22 Unknown History potassium chloride 20 mEq 20 meq PO BID 11/20/19 05/30/22 Unknown History tablet,extended release(part/cryst) risperidone 0.5 mg tablet 0.5 mg PO BID 11/20/19 05/30/22 Unknown History zolpidem 10 mg tablet 10 mg PO BEDTIME PRN Insomnia 11/20/19 05/30/22 Unknown History clonazepam 1 mg tablet (Klonopin) 1 mg PO DAILY 03/08/20 05/30/22 Unknown History montelukast 10 mg tablet 10 mg PO BEDTIME 03/08/20 05/30/22 Unknown History fluticasone 250 mcg-salmeterol 50 1 ea inhalation BID 06/29/21 05/30/22 Unknown History mcg/dose blistr powdr for inhalation ipratropium 20 mcg-albuterol 100 1 puff inhalation QID 06/29/21 05/30/22 Unknown History mcg/actuation mist for inhalation (Combivent Respimat) ipratropium 0.5 mg-albuterol 3 mg 3 ml inhalation Q6H PRN 07/06/21 05/30/22 Unknown History (2.5 mg base)/3 mL nebulization Respiratory Distress soln multivitamin-ferrous 1 tab PO DAILY 07/06/21 05/30/22 Unknown History fumarate-folic acid 18 mg-400 mcg tablet (Certavite-Antioxidant) fluoride (sodium) 1.1 % dental appl PO 10/16/21 05/30/22 Unknown History cream (SF 5000 Plus) enalapril maleate 20 mg tablet 20 mg PO DAILY 01/24/22 05/30/22 Unknown History buspirone 7.5 mg tablet 7.5 mg PO BID 01/31/22 05/30/22 Unknown History emtricitabine 200 mg-tenofovir 1 tab PO DAILY 01/31/22 05/30/22 Unknown History disoproxil fumarate 300 mg tablet sennosides 8.6 mg tablet (senna) 17.2 mg PO BEDTIME constipation 01/31/22 05/30/22 Unknown History tramadol 50 mg tablet 50 mg PO BID PRN 01/31/22 05/30/22 Unknown History acetaminophen 325 mg tablet 325 mg PO 04/05/22 05/30/22 Unknown History carbamide peroxide 6.5 % ear drops 0 drp otic (ears) 05/07/22 05/30/22 Unknown History (Ear Drops (carbamide peroxide)) diclofenac sodium 1 % topical gel g topical 05/07/22 05/30/22 Unknown History naloxone 4 mg/actuation nasal spray 0 spray intranasal 05/07/22 05/30/22 Unknown History Exam Exam Date and Time: June 06, 2022 1106 Height,Weight and Vital Signs: Height 5 ft 3 in Weight 93.44 kg Pertinent Lab Results Pertinent Lab Results: Laboratory Tests 05/16/22 05/16/22 09:24 09:24 WBC 6.6 Hgb 14.2 Hct 42.9 Plt Count 278 Sodium 143 Potassium 3.5 Chloride 107 Carbon Dioxide 26 BUN 15 Creatinine 0.98 Narrative Narrative: EKG 04/2022 Vent. Rate : 075 BPM ? ? Atrial Rate : 075 BPM ?? P-R Int : 212 ms? QRS Dur : 106 ms ? ? QT Int : 386 ms ? ? ? P-R-T Axes : 050 -48 031 degrees ?? QTc Int : 431 ms ? Sinus rhythm with 1st degree A-V block Left anterior fascicular block Minimal voltage criteria for LVH, may be normal variant ( [place] product ) Abnormal ECG When compared with ECG of 10-MAY-2022 10:04, No significant change was found Assessment and Plan Assessment Anesthesia Assessment: Chart Reviewed Final Anesthetic Review Family History of Problems with Anesthesia: No History of Problems with Anesthesia: No Documented by User: Vincenzo Nguyen MD 06/07/22 12:19 [facility] Past Medical History Medical History Allergic rhinitis Anxiety and depression Bronchitis Chest pain Cocaine abuse COPD exacerbation Diabetes DVT (deep venous thrombosis) Fibromyalgia HTN (hypertension) Hypothyroidism Low vitamin D level Non-toxic multinodular goiter PTSD (post-traumatic stress disorder) Renal calculi Spondylosis of cervical region without myelopathy or radiculopathy UTI (urinary tract infection) Vertigo Family History Family History Father No problems noted. Mother Myocardial infarction CVA (cerebral vascular accident) Surgical History Surgical History H/O colonoscopy with polypectomy History of esophagogastroduodenoscopy (EGD) History of hysterectomy History of lithotripsy History of selective injection of anesthetic agent around lumbar nerve root Hx of right breast biopsy Social History Social History Household Members: None Alcohol intake: unknown Patient Tobacco Use Status: Never used Tobacco Are you DNR?: No Advance Directives: No Advance Directives Information Provided: Yes Nutrition Risks: No Nutritional Risk Current occupational status: disabled 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 Meds Allergies Allergy/AdvReac Type Severity Reaction Status Date / Time aspirin [Aspirin] Allergy Mild ITCHY Verified 06/07/22 12:16 THROAT azithromycin Allergy Unknown Unknown Verified 06/07/22 12:16 naproxen Allergy Unknown Unknown Verified 06/07/22 12:16 simvastatin Allergy Unknown Unknown Verified 06/07/22 12:16 Fish Containing Products Allergy Swelling Verified 06/07/22 12:16 onion [ONION] AdvReac Mild RED FACE Verified 06/07/22 12:16 Home Medications Medication Instructions Recorded Confirmed Last Taken Type amlodipine 10 mg tablet 10 mg PO BEDTIME 11/20/19 05/30/22 05/01/21 History blood sugar diagnostic #10 ea 11/20/19 05/30/22 Unknown History blood-glucose meter #1 ea 11/20/19 05/30/22 Unknown History calcium carbonate 600 mg-vitamin 1 tab PO BID 11/20/19 05/30/22 Unknown History D3 10 mcg (400 unit) tablet cetirizine 10 mg tablet 10 mg PO BEDTIME 11/20/19 05/30/22 05/01/21 History lancets 33 gauge #100 ea 11/20/19 05/30/22 Unknown History potassium chloride 20 mEq 20 meq PO BID 11/20/19 05/30/22 Unknown History tablet,extended release(part/cryst) risperidone 0.5 mg tablet 0.5 mg PO BID 11/20/19 05/30/22 Unknown History zolpidem 10 mg tablet 10 mg PO BEDTIME PRN Insomnia 11/20/19 05/30/22 Unknown History clonazepam 1 mg tablet (Klonopin) 1 mg PO DAILY 03/08/20 05/30/22 Unknown History montelukast 10 mg tablet 10 mg PO BEDTIME 03/08/20 05/30/22 Unknown History fluticasone 250 mcg-salmeterol 50 1 ea inhalation BID 06/29/21 05/30/22 Unknown History mcg/dose blistr powdr for inhalation ipratropium 20 mcg-albuterol 100 1 puff inhalation QID 06/29/21 05/30/22 Unknown History mcg/actuation mist for inhalation (Combivent Respimat) ipratropium 0.5 mg-albuterol 3 mg 3 ml inhalation Q6H PRN 07/06/21 05/30/22 Unknown History (2.5 mg base)/3 mL nebulization Respiratory Distress soln multivitamin-ferrous 1 tab PO DAILY 07/06/21 05/30/22 Unknown History fumarate-folic acid 18 mg-400 mcg tablet (Certavite-Antioxidant) fluoride (sodium) 1.1 % dental appl PO 10/16/21 05/30/22 Unknown History cream (SF 5000 Plus) enalapril maleate 20 mg tablet 20 mg PO DAILY 01/24/22 05/30/22 Unknown History buspirone 7.5 mg tablet 7.5 mg PO BID 01/31/22 05/30/22 Unknown History emtricitabine 200 mg-tenofovir 1 tab PO DAILY 01/31/22 05/30/22 Unknown History disoproxil fumarate 300 mg tablet sennosides 8.6 mg tablet (senna) 17.2 mg PO BEDTIME constipation 01/31/22 05/30/22 Unknown History tramadol 50 mg tablet 50 mg PO BID PRN 01/31/22 05/30/22 Unknown History acetaminophen 325 mg tablet 325 mg PO 04/05/22 05/30/22 Unknown History carbamide peroxide 6.5 % ear drops 0 drp otic (ears) 05/07/22 05/30/22 Unknown History (Ear Drops (carbamide peroxide)) diclofenac sodium 1 % topical gel g topical 05/07/22 05/30/22 Unknown History naloxone 4 mg/actuation nasal spray 0 spray intranasal 05/07/22 05/30/22 Unknown History Exam Airway Mallampati Class: II TM Dist: >3cm Neck ROM: Full Partial: Upper and Lower Loose/Missing/Broken Teeth: Yes, Upper and Lower Heart: rrr Lungs: clear Assessment and Plan Final Anesthetic Review NPO: Yes ASA Class: IV Final Preanesthetic Review: No Changes in Pt Med Stat, Meds/Allgs Chart Reviewed and Consent Obtained/Reviewed Patient Risk: High Procedure Risk: Low Anesthetic Plan Anesthetic Plan: MAC: Disposition: Standard PACU
--- NOTE | ~2022-06-07 | FL_ITS ---
EXAMINATION: XR FLUOROSCOPY WITH IMAGES CLINICAL INFORMATION: Genicular nerve block left COMPARISON: Radiographs left knee 04/19/2022 TECHNIQUE: Fluoroscopy Supervised By: Dr. Bryan Velázquez. Fluoroscopy Time: 0.1 minutes. Cumulative Dose: 0.756 mGy. DAP: 0.21 Gycm2. Images: 2. FINDINGS: There are spinal needles adjacent to the distal femoral shaft, medial and lateral sides, mid depth. There is a spinal needle adjacent to the proximal tibia on medial side mid depth. Mild narrowing medial knee joint compartment again seen. FL/FL guidance in OR IMPRESSION: Fluoroscopy for pain management procedures.
[2022-06-07 12:01] VITALS: BP 134/90; PULSE 71; RESP 18; TEMP 36.4; O2SAT 97
[2022-06-07 12:04] LABS: Glucose, Whole Blood 135 mg/dL (60-115)
[2022-06-07] MEDS: Lactated Ringers 1,000 ML 100 ML IVCONT (12:13)
--- NOTE | 2022-06-07 12:16 | PC.NURSE ---
Patient states she is unsure of what medications she takes at home. States they are all in an envelope.
[2022-06-07 12:17] LABS: Amphetamine Screen Urine Not Detected (Not Detect); Barbiturates, Urine Not Detected (Not Detect); Benzodiazepines Screen Urine Not Detected (Not Detect); Cannabinoid Screen Urine Not Detected (Not Detect); Cocaine Screen Urine Not Detected (Not Detect); Fentanyl, urine Not Detected (Not Detect); Opiate Screen Urine Not Detected (Not Detect); Phencyclidine Screen Urine Not Detected (Not Detect)
--- NOTE | 2022-06-07 12:19 | MHC.SHP ---
Pre-Procedural Eval Section A Date of Service: 06/07/22 The patient is an INPATIENT: No Changes since office visit: Yes Patient answered all questions The History & Physical has been completed within 30 days and I have reviewed it.: No Section B Chief Complaint: Bilateral primary osteoarthritis of knee,(L) knee Details of Present Illness: as above Relevant Family History (Specify if Yes): No Relevant Social History: None Present Medications: see Short Stay Collaborative assessment Medical History: No relevant PMH History of Previous Operations: No relevant previous surgery Allergies: Allergies Allergy/AdvReac Type Severity Reaction Status Date / Time aspirin [Aspirin] Allergy Mild ITCHY Verified 06/07/22 12:16 THROAT azithromycin Allergy Unknown Unknown Verified 06/07/22 12:16 naproxen Allergy Unknown Unknown Verified 06/07/22 12:16 simvastatin Allergy Unknown Unknown Verified 06/07/22 12:16 Fish Containing Products Allergy Swelling Verified 06/07/22 12:16 onion [ONION] AdvReac Mild RED FACE Verified 06/07/22 12:16 Review of Systems Sugical H&P ROS: Negative: Constitution, Cardiovascular, Respiratory, Neurological, Psychiatric, Hem-Onc, Allergic/Immunologic, Gastrointestinal, Genitourinary, Musculoskeletal, Integumentary, Endocrine and Eyes/Ears/Nose/Throat Exam Surgical H&P Exam: Normal: HEENT, Normal: Heart, Normal: Lungs, Normal: Extremities, Normal: Abdomen, Normal: Skin and Normal: Neurological Plan Diagnosis/Plan: Unchanged I have reviewed the history and physical and performed a pertinent physical examination on my patient. No changes have occurred unless specified. Time Spent With Patient Time: Total time managing care of this patient today ___5_ minutes.
--- NOTE | 2022-06-07 12:20 | W.PM.OPN ---
Operative Note Operative Note Date of Service: 06/07/22 Narrative: Left diagnostic genicular nerve block. ? Informed consent was explained to the patient. All questions were explained and answered. The patient was taken inside the operating room. The patient was positioned supine on operating table with her left leg elevated on a gel bin. ?Time-out was performed delineating correct site, side, the nature of the procedure, patient's allergy, preoperative antibiotic if needed. All operating room staff was participating in OR time-out procedure. C-arm was brought over the operating field and picture of the left knee was demonstrated on the screen. Anterolateral and anteromedial surfaces of the knee as well as lower leg and the lower thigh were prepped with chloroprep and draped with utility towels. ?The point of interest were delineated for: FOR: superior lateral genicular nerve (branch of lateral femoral cutaneous nerve) as the connection of the metaphysis of the left? femur with corresponding diaphysis on the lateral silhouette of the femur distal bone, ?For superior medial genicular nerve (suprapatellar saphenous nerve) the point of interest was delineated is the connection of metaphysis of left femur with corresponding diaphysis on the medial silhouette on the femoral distal bone. ?For inferior medial genicular nerve (infrapatellar saphenous nerve) the point of interest was delineated as connection of metaphysis of the proximal tibia on the medial side with corresponding diaphysis of the same bone. ?The projections of the points of interest on anterior surface of the right knee was injected with small amount of lidocaine 2% 1-to 2 ml. After that to needles 22 gauge 3-1/2 inch long were driven to were the point of interest in tunnel vision fashion.? When the needle gently contacted the bones the C arm view was turned lateral , care was taken to superimpose condyles of the knee. With condyles superimpsed the needles were adjusted the way the tips of the needle positioned at the middle of the shaft of the bone. After that injection of ropivacaine o.5% 1 to 1.5 mls was performed at each needle location. the needles were removed and bandaids were applied. the patient tolerated the procedure very well.
--- NOTE | 2022-06-07 12:21 | PM.OP ---
Brief Operative Note Date of Service: 06/07/22 Pre-op diagnosis: left knee pain, left knee arthritis Post-op diagnosis: same Procedure: left knee diagnostic genicular nerve block Surgeon: Bryan Velázquez MD Anesthesia: MAC Was an Security Dispatcher used for this Procedure?: No Estimated blood loss (mL): 0 Condition: stable Disposition: PACU
[2022-06-07 12:53] VITALS: BP 135/89; PULSE 80; RESP 16; TEMP 37.2; O2SAT 93
[2022-06-07 13:08] VITALS: BP 119/89; PULSE 69; RESP 18; TEMP 36.1; O2SAT 94
== END 2022-06-07 13:30 | disposition home or self-care (01) ==
PROVIDERS: Nurse Practitioner; PCP Nurse Practitioner Primary Care; Visit Provider Anesthesiology
PROC: (CPT 64454; principal; 2022-06-07 13:50)
DX: M25.562 Pain in left knee (principal); M17.12 Unilateral primary osteoarthritis, left knee; M47.816 Spondylosis without myelopathy or radiculopathy, lumbar region; G89.29 Other chronic pain; M53.3 Sacrococcygeal disorders, not elsewhere classified; M79.7 Fibromyalgia; J44.9 Chronic obstructive pulmonary disease, unspecified; J45.50 Severe persistent asthma, uncomplicated; J30.9 Allergic rhinitis, unspecified; I10 Essential (primary) hypertension; E11.9 Type 2 diabetes mellitus without complications; E78.00 Pure hypercholesterolemia, unspecified; E03.9 Hypothyroidism, unspecified; E55.9 Vitamin D deficiency, unspecified; F41.8 Other specified anxiety disorders; R42 Dizziness and giddiness; Z79.51 Long term (current) use of inhaled steroids; Z79.899 Other long term (current) drug therapy; Z88.1 Allergy status to other antibiotic agents; Z88.8 Allergy status to other drugs, medicaments and biological substances; Z87.442 Personal history of urinary calculi
CPT/HCPCS: 64454; 80307; 82947; J2250; J2795

== ENCOUNTER 2022-06-08 09:41 | Emergency (ER) | payer OTHER, SELFPAY ==
[2022-06-08 09:55] VITALS: BP 150/96; PULSE 93; RESP 18; TEMP 36.6; O2SAT 95; BMI 40.0
[2022-06-08 10:00] VITALS: RESP 18
--- NOTE | 2022-06-08 10:08 | PC.NURSE ---
Pt on stretcher, airway open and patent, pt grimacing in pain, breathing equal and unlabored. A&ox4, skin slightly flushed, warm, and dry. Lung sounds clr bilaterally all khan. Heart sounds normal. Bowel sounds present all khan, abdomen soft, pt reports tenderness middle right side of abdomen upon palpation. Pt has 3 band aids around left knee. Pt reports that she is unsure exactly what the injection was, but that it was not cortisone. No edema noted. Pt reporting a really bad headache rated 10/10 since last night which she took Tylenol for, but the Tylenol didn't help. Pt reports her knee pain is 10/10, but this is her baseline pain in her knee that she has chronically. Pt reports feeling very tired as well.
--- NOTE | 2022-06-08 10:46 | ED.GENADULT ---
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 Patient has a history of left knee pain secondary to osteoarthritis. The patient had a left knee genicular nerve block done by Dr. Velázquez on 06/07/2022. Patient was injected with ropivacaine 0.5% into 4 different locations. Patient states that she was given medication to make her fall asleep however I cannot determine which medication was used. She states she has had adverse reactions to anesthesia in the past and she has had similar feelings after having procedures. Related Data Home Medications Medication Instructions Recorded Confirmed amlodipine 10 mg tablet 10 mg PO BEDTIME 11/20/19 05/30/22 blood sugar diagnostic #10 ea 11/20/19 05/30/22 blood-glucose meter #1 ea 11/20/19 05/30/22 calcium carbonate 600 mg-vitamin 1 tab PO BID 11/20/19 05/30/22 D3 10 mcg (400 unit) tablet cetirizine 10 mg tablet 10 mg PO BEDTIME 11/20/19 05/30/22 lancets 33 gauge #100 ea 11/20/19 05/30/22 potassium chloride 20 mEq 20 meq PO BID 11/20/19 05/30/22 tablet,extended release(part/cryst) risperidone 0.5 mg tablet 0.5 mg PO BID 11/20/19 05/30/22 zolpidem 10 mg tablet 10 mg PO BEDTIME PRN Insomnia 11/20/19 05/30/22 clonazepam 1 mg tablet (Klonopin) 1 mg PO DAILY 03/08/20 05/30/22 montelukast 10 mg tablet 10 mg PO BEDTIME 03/08/20 05/30/22 fluticasone 250 mcg-salmeterol 50 1 ea inhalation BID 06/29/21 05/30/22 mcg/dose blistr powdr for inhalation ipratropium 20 mcg-albuterol 100 1 puff inhalation QID 06/29/21 05/30/22 mcg/actuation mist for inhalation (Combivent Respimat) ipratropium 0.5 mg-albuterol 3 mg 3 ml inhalation Q6H PRN 07/06/21 05/30/22 (2.5 mg base)/3 mL nebulization Respiratory Distress soln multivitamin-ferrous 1 tab PO DAILY 07/06/21 05/30/22 fumarate-folic acid 18 mg-400 mcg tablet (Certavite-Antioxidant) fluoride (sodium) 1.1 % dental appl PO 10/16/21 05/30/22 cream (SF 5000 Plus) enalapril maleate 20 mg tablet 20 mg PO DAILY 01/24/22 05/30/22 buspirone 7.5 mg tablet 7.5 mg PO BID 01/31/22 05/30/22 emtricitabine 200 mg-tenofovir 1 tab PO DAILY 01/31/22 05/30/22 disoproxil fumarate 300 mg tablet sennosides 8.6 mg tablet (senna) 17.2 mg PO BEDTIME constipation 01/31/22 05/30/22 tramadol 50 mg tablet 50 mg PO BID PRN 01/31/22 05/30/22 acetaminophen 325 mg tablet 325 mg PO 04/05/22 05/30/22 carbamide peroxide 6.5 % ear drops 0 drp otic (ears) 05/07/22 05/30/22 (Ear Drops (carbamide peroxide)) diclofenac sodium 1 % topical gel g topical 05/07/22 05/30/22 naloxone 4 mg/actuation nasal spray 0 spray intranasal 05/07/22 05/30/22 Previous Rx's Medication Instructions Recorded leg brace (Knee Support Brace) #2 ea 03/08/20 albuterol sulfate 90 mcg/actuation 2 puff inhalation Q4-6H PRN 09/29/20 aerosol inhaler shortness of breath or wheezing #6.7 grams sennosides 8.6 mg capsule (senna) 17.2 mg PO BEDTIME constipation 30 03/19/21 days #60 caps omalizumab 150 mg/mL subcutaneous 300 mg (2 mL) subcut Q2W #4 mL 08/31/21 syringe (Xolair) acetaminophen 500 mg tablet 1,000 mg PO Q8-10H PRN pain 7 days 09/05/21 (Tylenol Extra Strength) #42 tabs insulin aspart 6 unit subcut TID #15 mL 12/14/21 (niacinamide)(U-100) 100 unit/mL(3 mL) subcutaneous pen (Fiasp FlexTouch U-100 Insulin) bisacodyl 5 mg tablet,delayed See Rx Instructions PO BEDTIME 30 12/27/21 release (Dulcolax (bisacodyl)) days #90 tabs docusate sodium 100 mg capsule 100 mg PO BID 30 days #60 caps 12/27/21 omeprazole 20 mg capsule,delayed 20 mg PO BID@0630,1630 #60 caps 12/27/21 release Lactobacil rhamnosus GG 10 billion 1 cap PO DAILY #30 caps 01/02/22 cell-inulin 200 mg sprinkle capsule ([facility] [employer] [facility]) metoclopramide HCl 10 mg tablet 10 mg PO TID #90 tabs 01/31/22 (Reglan) peg 3350-electrolytes 236 240 ml PO Q10M 1 day #4,000 mL 01/31/22 gram-22.74 gram-6.74 gram-5.86 gram solution (Golytely) plecanatide 3 mg tablet (Trulance) 3 mg PO DAILY 30 days #30 tabs 01/31/22 dextrose 40 % oral gel (Glutose-15) 15 g PO DIRECTED for 02/06/22 hypoglycemia #112.5 grams blood-glucose meter (FreeStyle #1 ea 02/28/22 Flash System kit) lancets 28 gauge (FreeStyle #100 ea 02/28/22 Lancets) gabapentin 400 mg capsule 400 mg PO BEDTIME #30 caps 03/06/22 tiotropium bromide 18 mcg capsule 1 cap inhalation DAILY #30 caps 03/14/22 with inhalation device (Spiriva with HandiHaler) prednisone 10 mg tablet 40 mg PO DAILY 5 days #20 tabs 03/15/22 pen needle, diabetic 32 gauge x ##100 03/29/22 (UltiCare Pen Needle) pyridoxine (vitamin B6) 100 mg 100 mg PO DAILY #90 tabs 04/05/22 tablet doxycycline hyclate 100 mg capsule 100 mg PO BID 7 days #14 caps 04/07/22 prednisone 20 mg tablet 60 mg PO DAILY 4 days #12 tabs 04/07/22 levothyroxine 75 mcg tablet 75 mcg PO QAM #90 tabs 04/11/22 benzonatate 100 mg capsule 100 mg PO TID PRN cough #30 caps 05/10/22 doxycycline hyclate 100 mg tablet 100 mg PO BID #10 tabs 05/10/22 prednisone 20 mg tablet 40 mg PO DAILY #10 tabs 05/10/22 ondansetron 4 mg disintegrating 4 mg PO Q8H PRN nausea and 05/16/22 tablet vomiting #10 tabs atorvastatin 80 mg tablet 80 mg PO BEDTIME #30 tabs 05/28/22 Allergies Allergy/AdvReac Type Severity Reaction Status Date / Time aspirin [Aspirin] Allergy Mild ITCHY Verified 06/08/22 10:00 THROAT azithromycin Allergy Unknown Unknown Verified 06/08/22 10:00 naproxen Allergy Unknown Unknown Verified 06/08/22 10:00 simvastatin Allergy Unknown Unknown Verified 06/08/22 10:00 Fish Containing Products Allergy Swelling Verified 06/08/22 10:00 onion [ONION] AdvReac Mild RED FACE Verified 06/08/22 10:00 Review of Systems Review of Systems: Yes all other systems are reviewed and are negative [facility] Past Medical History [facility] Narrative: Social history: She denies tobacco, alcohol and drug use. Medical History Allergic rhinitis Anxiety and depression Bronchitis Chest pain Cocaine abuse COPD exacerbation Diabetes DVT (deep venous thrombosis) Fibromyalgia HTN (hypertension) Hypothyroidism Low vitamin D level Non-toxic multinodular goiter PTSD (post-traumatic stress disorder) Renal calculi Spondylosis of cervical region without myelopathy or radiculopathy UTI (urinary tract infection) Vertigo Surgical History H/O colonoscopy with polypectomy History of esophagogastroduodenoscopy (EGD) History of hysterectomy History of lithotripsy History of selective injection of anesthetic agent around lumbar nerve root Hx of right breast biopsy Family History Family History Father No problems noted. 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 Physical Exam ED Vital Signs: Vital Signs - 24 hr 06/08/22 09:55 06/08/22 10:00 06/08/22 12:42 Temperature 97.9 F 98.2 F Pulse Rate 93 65 Respiratory Rate 18 18 16 Blood Pressure 150/96 H 142/83 H Pulse Oximetry 95 98 Oxygen Delivery Method Room Air Room Air BMI result Body Mass Index 40.0 Const Other: Awake, alert, female patient, very pleasant cooperative she does not appear to be in distress, answers all questions appropriately [facility] Head: Yes normal to inspection, Yes normocephalic and Yes atraumatic Ears: external ears normal General nose exam: Normal external nose present Face and sinus: Yes normal facial exam Mouth: Normal oral and palatal mucosa present Throat: Yes posterior oropharynx normal Eyes General: appearance normal, both eyes and all related structures Pupils: Equal, round and reactive pupils present Neck Neck: Yes normal visual inspection, Yes no lymphadenopathy, Yes trachea midline and Yes supple Chest Chest palpation & inspection: normal inspection of the chest and normal palpation of entire chest wall Resp Effort & Inspection: normal respiratory effort and able to speak in complete sentences Auscultation: clear to auscultation bilaterally Cardio Rate: regular rate Rhythm: regular rhythm Heart sounds: S1 normal heart sound present, S2 normal heart sound present and no murmurs GI Inspection: Yes normal to inspection Palpation (GI): Soft to palpation, nontender and no guarding Auscultation: normal bowel sounds General: Yes no CVA tenderness Back/Spine/Pelvis Back: no CVA tenderness Skin General skin exam: no rashes or lesions noted Neuro Cranial nerves: Yes CN's II-XII intact bilaterally and Yes Equal, round and reactive pupils present Cognition (Neuro): normal cognition Motor exam (neuro): 5/5 motor strength present throughout Extrem Other: The patient's left knee has no increased warmth or erythema noted. There are for surgical puncture sites that appear to be intact in her covered with Band-Aids, there is no purulent drainage. There is no joint effusion. Patient is able to flex and extend her knee without any difficulty, no significant asymmetry between the left and right knee. The patient's extremities in the event that Psych Appearance: grossly normal Speech and movement: Normal speech and movement present Affect: normal affect Attitude: cooperative Medications Administered Discontinued Medications Generic Name Dose Route Start Last Admin Trade Name Barb PRN Reason Stop Dose Admin Sodium Chloride 1,000 mls @ 999 mls/hr 06/08/22 10:57 06/08/22 13:15 Ns IV 06/08/22 11:57 Infused .Q1H1M STA Infusion Ondansetron HCl 4 mg 06/08/22 10:57 06/08/22 11:39 Ondansetron Hcl 4 Mg/2 Ml Vial IVPUSH 06/08/22 10:58 4 mg ONCE ONE Administration Medical Decision Making Medical Decision Making [facility] Narrative: 61-year-old female who presents emergency department for evaluation of subjective fever, chills, nausea, vomiting, confusion and feeling off balance after having genicular nerve block with ropivacaine done on 06/07/2022. Patient did receive a medication for procedural sedation. Patient's physical examination revealed a normal appearing knee with 4 injection sites, no evidence for cellulitis or joint effusion at this time. Her vital signs did reveal an elevated blood pressure of 150/96 otherwise was unremarkable. I did order laboratory evaluation to include CBC, CMP, lactic case, lipase, urinalysis and blood cultures x2. Patient will be treated with normal saline IV x1 L and Zofran 4 mg IV. 1415: My interpretation patient's laboratory evaluation as follows: CBC normal. CMP elevated chloride 111, elevated glucose 145. Lipase normal. Urinalysis normal. The patient did feel better after received IV fluid and Zofran. I do not think that the patient had allergic reaction I told her that sometimes people can feel bad after receiving sedation and that it does not mean she can not receive sedation in the future or pursue a nerve block to the other knee. Patient was advised to go home, rest increase her fluid intake and to follow-up with her providers for re-evaluation. This point I do not think that the patient has bacteremia or joint infection, blood cultures are pending. Differential Diagnosis Differential diagnosis includes but is not limited to adverse reaction to she is procedural sedation medication, adverse reaction ropivacaine or lidocaine, urinary tract infection, cellulitis, joint infection, anxiety Lab Data [facility] Lab Attestation statement: I reviewed the patient's lab results. See MDM 06/08/22 11:29 06/08/22 11:52 Labs: Lab Results 06/08/22 06/08/22 06/08/22 Range/Units 11:29 11:29 11:29 WBC 5.5 (4.8-10.8) X10*3/uL RBC 4.50 (4.20-5.50) X10*6/uL Hgb 14.3 (12.0-16.0) g/dl Hct 42.0 (37.0-47.0) % MCV 93.3 (80.0-98.0) fL MCH 31.8 (27.0-33.0) pg MCHC 34.0 (31.0-35.0) g/dl RDW 13.3 (11.0-16.0) % Plt Count 279 (160-400) X10*3/uL MPV 10.0 (9.4-12.3) fL Immature Gran % (Auto) 0.2 (0.0-0.4) % Neut % (Auto) 47.6 (45-73) % Lymph % (Auto) 42.6 H (20-40) % Alexander % (Auto) 7.2 (2-11) % Eos % (Auto) 2.0 (0-4) % Baso % (Auto) 0.4 (0-2) % Lymph # (Auto) 2.4 (1.2-4.9) X10*3/uL Alexander # (Auto) 0.4 (0.1-1.2) X10*3/uL Eos # (Auto) 0.1 (0.0-0.4) X10*3/uL Baso # (Auto) 0.0 (0.0-0.2) X10*3/uL Abs Immat Gran (auto) 0.01 (0.00-0.03) X10*3/uL Absolute Neuts (auto) 2.6 (2.0-8.3) x10*3/uL Absolute Nucleated RBC 0.000 (0.0-0.012) X10*3/uL Nucleated RBC % (auto) 0.0 (0.0-0.2) /100WBC Sodium (135-145) mmol/L Potassium (3.3-5.1) mmol/L Chloride (96-108) mmol/L Carbon Dioxide (22-29) mmol/L Anion Gap (12-20) BUN (9-16) mg/dL Creatinine (0.5-1.4) mg/dL Estim Creat Clear Calc Estimated GFR Random Glucose (60-115) mg/dL Lactic Acid 0.9 (0.5-2.0) mmol/L Calcium (8.4-10.2) mg/dL Total Bilirubin (0.0-1.0) mg/dL AST (5-31) U/L ALT (0-31) U/L Alkaline Phosphatase (39-117) U/L Total Protein (6.5-8.0) g/dL Albumin (3.5-5.0) g/dL Lipase (8-78) U/L Urine Color Yellow Urine Appearance Clear Urine pH 7.0 (5.0-9.0) Ur Specific [place] 1.010 (1.005-1.025) Urine Protein Negative (Neg-Trace) mg/dL Urine Glucose (UA) Negative (Negative) mg/dL Urine Ketones Negative (Negative) mg/dL Urine Blood Negative (Negative) Urine Nitrite Negative (Negative) Ur Leukocyte Esterase Negative (Negative) 06/08/22 Range/Units 11:52 WBC (4.8-10.8) X10*3/uL RBC (4.20-5.50) X10*6/uL Hgb (12.0-16.0) g/dl Hct (37.0-47.0) % MCV (80.0-98.0) fL MCH (27.0-33.0) pg MCHC (31.0-35.0) g/dl RDW (11.0-16.0) % Plt Count (160-400) X10*3/uL MPV (9.4-12.3) fL Immature Gran % (Auto) (0.0-0.4) % Neut % (Auto) (45-73) % Lymph % (Auto) (20-40) % Alexander % (Auto) (2-11) % Eos % (Auto) (0-4) % Baso % (Auto) (0-2) % Lymph # (Auto) (1.2-4.9) X10*3/uL Alexander # (Auto) (0.1-1.2) X10*3/uL Eos # (Auto) (0.0-0.4) X10*3/uL Baso # (Auto) (0.0-0.2) X10*3/uL Abs Immat Gran (auto) (0.00-0.03) X10*3/uL Absolute Neuts (auto) (2.0-8.3) x10*3/uL Absolute Nucleated RBC (0.0-0.012) X10*3/uL Nucleated RBC % (auto) (0.0-0.2) /100WBC Sodium 144 (135-145) mmol/L Potassium 4.0 (3.3-5.1) mmol/L Chloride 111 H (96-108) mmol/L Carbon Dioxide 26 (22-29) mmol/L Anion Gap 11 L (12-20) BUN 14 (9-16) mg/dL Creatinine 0.82 (0.5-1.4) mg/dL Estim Creat Clear Calc 73.3 Estimated GFR > 60 Random Glucose 145 H (60-115) mg/dL Lactic Acid (0.5-2.0) mmol/L Calcium 9.2 (8.4-10.2) mg/dL Total Bilirubin 0.4 (0.0-1.0) mg/dL AST 27 (5-31) U/L ALT 27 (0-31) U/L Alkaline Phosphatase 89 (39-117) U/L Total Protein 6.7 (6.5-8.0) g/dL Albumin 4.1 (3.5-5.0) g/dL Lipase 16 (8-78) U/L Urine Color Urine Appearance Urine pH (5.0-9.0) Ur Specific [place] (1.005-1.025) Urine Protein (Neg-Trace) mg/dL Urine Glucose (UA) (Negative) mg/dL Urine Ketones (Negative) mg/dL Urine Blood (Negative) Urine Nitrite (Negative) Ur Leukocyte Esterase (Negative) Discharge Plan Discharge Clinical Impression: Nausea, Weakness, Acute dehydration Patient Disposition: Home, Self-Care Additional Instructions: Your blood work was normal. Your urinalysis was negative. My impression is that your dehydrated and you may still be feeling some affect from the sedation that you received yesterday. I do not think that your having allergic reaction. Go home, rest, increase your fluid intake. Follow-up with your doctor in 2 days. Please return to the emergency department if your symptoms get worse or if you develop any symptoms that are concerning to you. Prescriptions: No Action Xolair 150 mg/mL syringe 300 mg subcut Q2W Qty: 4 11RF Fiasp FlexTouch U-100 Insulin 100 unit/mL (3 mL) insulin pen 6 unit subcut TID Qty: 15 5RF [facility] 10 billion cell -200 mg capsule, sprinkle 1 cap PO DAILY Qty: 30 6RF dextrose [Glutose-15] 40 % gel 15 g PO DIRECTED Qty: 112.5 5RF (DME) lancets [FreeStyle Lancets] 28 gauge misc See Rx Instructions .Route Qty: 100 5RF Rx Instructions: check blood sugars 3 times a day (DME) blood-glucose meter [FreeStyle Flash System] Kit See Rx Instructions .Route Qty: 1 0RF Rx Instructions: As directed gabapentin 400 mg capsule 400 mg PO BEDTIME Qty: 30 4RF Spiriva with HandiHaler 18 mcg capsule, w/inhalation device 1 cap inhalation DAILY Qty: 30 6RF prednisone 10 mg tablet 40 mg PO DAILY 5 Days Qty: 20 0RF (DME) pen needle, diabetic [UltiCare Pen Needle] 32 gauge x 5/32 needle See Rx Instructions .ROUTE .COMPLEX Qty: 100 5RF Dose Instruction: USE FOUR TIMES DAILY Rx Instructions: USE FOUR TIMES DAILY levothyroxine 75 mcg tablet 75 mcg PO QAM Qty: 90 4RF atorvastatin 80 mg tablet 80 mg PO BEDTIME Qty: 30 4RF albuterol sulfate 90 mcg/actuation HFA aerosol inhaler 2 puff inhalation Q4-6H PRN (Reason: shortness of breath or wheezing) Qty: 6.7 0RF ipratropium-albuterol 0.5 mg-3 mg(2.5 mg base)/3 mL Solution For Nebulization 3 ml INHALATION Q6H PRN (Reason: Respiratory Distress) Certavite-Antioxidant 18-400 mg-mcg Tablet 1 tab PO DAILY acetaminophen [Tylenol Extra Strength] 500 mg tablet 1,000 mg PO Q8-10H PRN (Reason: pain) 7 Days Qty: 42 0RF prednisone 20 mg tablet 60 mg PO DAILY 4 Days Qty: 12 0RF doxycycline hyclate 100 mg capsule 100 mg PO BID 7 Days Qty: 14 0RF ondansetron 4 mg tablet,disintegrating 4 mg PO Q8H PRN (Reason: nausea and vomiting) Qty: 10 0RF prednisone 20 mg tablet 40 mg PO DAILY Qty: 10 0RF benzonatate 100 mg capsule 100 mg PO TID PRN (Reason: cough) Qty: 30 0RF doxycycline hyclate 100 mg tablet 100 mg PO BID Qty: 10 0RF montelukast 10 mg tablet 10 mg PO BEDTIME clonazepam [Klonopin] 1 mg tablet 1 mg PO DAILY Rx Instructions: administer 30 minutes before bedtime (DME) Knee Support Brace Misc See Rx Instructions .ROUTE .MEDSUPPLY Qty: 2 0RF Rx Instructions: As directed senna 8.6 mg capsule 17.2 mg PO BEDTIME 30 Days Qty: 60 6RF zolpidem 10 mg tablet 10 mg PO BEDTIME PRN (Reason: Insomnia) risperidone 0.5 mg tablet 0.5 mg PO BID amlodipine 10 mg tablet 10 mg PO BEDTIME (DME) lancets 33 gauge misc See Rx Instructions Not Applicable DAILY Qty: 100 Rx Instructions: As directed (DME) FreeStyle Lite Strips Strip See Rx Instructions Not Applicable DAILY Qty: 10 Rx Instructions: As directed calcium carbonate-vitamin D3 600 mg(1,500mg) -400 unit tablet 1 tab PO BID potassium chloride 20 mEq tablet,ER particles/crystals 20 meq PO BID cetirizine 10 mg tablet 10 mg PO BEDTIME (DME) blood-glucose meter Kit See Rx Instructions .ROUTE DAILY Qty: 1 Rx Instructions: As directed Combivent Respimat 20-100 mcg/actuation mist 1 puff inhalation QID fluticasone propion-salmeterol 250-50 mcg/dose blister with device 1 ea inhalation BID enalapril maleate 20 mg tablet 20 mg PO DAILY acetaminophen 325 mg tablet 325 mg PO pyridoxine (vitamin B6) 100 mg tablet 100 mg PO DAILY Qty: 90 3RF omeprazole 20 mg capsule,delayed release(DR/EC) 20 mg PO BID@0630,1630 Qty: 60 6RF bisacodyl [Dulcolax (bisacodyl)] 5 mg tablet,delayed release (DR/EC) See Rx Instructions PO BEDTIME 30 Days Qty: 90 6RF Rx Instructions: 2 tabs qhs and 1 qam orally bedtime; docusate sodium 100 mg capsule 100 mg PO BID 30 Days Qty: 60 6RF fluoride (sodium) [SF 5000 Plus] 1.1 % cream PO buspirone 7.5 mg tablet 7.5 mg PO BID tramadol 50 mg tablet 50 mg PO BID PRN sennosides [senna] 8.6 mg tablet 17.2 mg PO BEDTIME emtricitabine-tenofovir (TDF) 200-300 mg tablet 1 tab PO DAILY peg 3350-electrolytes [Golytely] 236-22.74-6.74 -5.86 gram recon soln 240 ml PO Q10M 1 Days Qty: 4000 0RF Rx Instructions: until fecal effluent is clear; do not exceed a total volume of 2,000 mL metoclopramide HCl [Reglan] 10 mg tablet 10 mg PO TID Qty: 90 6RF Trulance 3 mg tablet 3 mg PO DAILY 30 Days Qty: 30 6RF Rx Instructions: Take one tablet by mouth once a day naloxone 4 mg/actuation spray,non-aerosol 0 spray intranasal diclofenac sodium 1 % gel topical Ear Drops (carbamide peroxide) 6.5 % drops 0 drp otic (ears)
[2022-06-08] MEDS: 0.9 % Sodium Chloride 1,000 ML 999 ML IV (11:33)
[2022-06-08 11:35] LABS: MANUAL DIFF FLAG NO
[2022-06-08 11:38] LABS: Appearance Urine Clear; Color Urine Yellow; Glucose Urine UA Negative (Negative); Leukocyte Esterase Urine Negative (Negative); Nitrite Urine Negative (Negative); Urine Blood Negative (Negative); Urine Ketones Negative (Negative); Urine Protein Negative (Neg-Trace)
[2022-06-08 11:39] LABS: Basophils Percent Auto 0.4 % (0-2); Eosinophils Absolute Auto 0.1 X10*3/uL (0.0-0.4); Hemoglobin 14.3 g/dl (12.0-16.0); Imm Gran Abs Auto 0.01 X10*3/uL (0.00-0.03); Imm Gran Pct Auto 0.2 % (0.0-0.4); Lymphocytes Absolute Auto 2.4 X10*3/uL (1.2-4.9); Lymphocytes Percent Auto 42.6 % (20-40); Mean Corpuscular Hemoglobin 31.8 pg (27.0-33.0); Mean Corpuscular Volume 93.3 fL (80.0-98.0); Monocytes Absolute Auto 0.4 X10*3/uL (0.1-1.2); Monocytes Percent Auto 7.2 % (2-11); Neutrophils Absolute Auto 2.6 x10*3/uL (2.0-8.3); Neutrophils Percent Auto 47.6 % (45-73); Platelet Count 279 X10*3/uL (160-400); Red Cell Distribution Width 13.3 % (11.0-16.0); White Blood Count 5.5 X10*3/uL (4.8-10.8)
[2022-06-08] MEDS: ondansetron HCL 4 MG/2 ML VIAL IVPUSH (11:39)
--- NOTE | 2022-06-08 11:41 | PC.NURSE ---
Pt on stretcher, airway open and patent, no obvious signs of distress. Pt appears to be in less pain. Pt reports her headache has gotten slightly better, rating the pain 7/10.
[2022-06-08 11:49] LABS: Lactic Acid 0.9 mmol/L (0.5-2.0)
[2022-06-08 12:16] LABS: Alanine Aminotransferase 27 U/L (0-31); Albumin Level 4.1 g/dL (3.5-5.0); Alkaline Phosphatase 89 U/L (39-117); Anion Gap 11 (12-20); Aspartate Amino Transferase 27 U/L (5-31); Bilirubin Total 0.4 mg/dL (0.0-1.0); Blood Urea Nitrogen 14 mg/dL (9-16); Calcium 9.2 mg/dL (8.4-10.2); Carbon Dioxide 26 mmol/L (22-29); Chloride 111 mmol/L (96-108); Creatinine Clr Calc Pharmacy 73.3; Estimated Glomerular Filt Rate > 60; Glucose Random 145 mg/dL (60-115); Lipase 16 U/L (8-78); Sodium 144 mmol/L (135-145); Total Protein 6.7 g/dL (6.5-8.0)
[2022-06-08 12:42] VITALS: BP 142/83; PULSE 65; RESP 16; TEMP 36.8; O2SAT 98
--- NOTE | 2022-06-08 12:47 | PC.NURSE ---
Pt on stretcher, airway open and patent, no obvious signs of distress, no difficulty breathing. Pt reports that she does not have a headache anymore, pain 0/10 and she feels really good from the fluids.
[2022-06-08 14:15] VITALS: BP 143/72; PULSE 72; RESP 16; TEMP 36.7; O2SAT 96
== END 2022-06-08 14:26 | disposition home or self-care (01) ==
PROVIDERS: Emergency Provider Emergency Medicine Emergency Medical Services; PCP Nurse Practitioner Primary Care
DX: E86.0 Dehydration (principal); R53.1 Weakness; R11.2 Nausea with vomiting, unspecified
CPT/HCPCS: 36415; 80053; 81003; 83605; 83690; 85025; 87040; 96361; 96374; 99284; J2405

== ENCOUNTER → 2022-06-11 12:09 | Outpatient (BNVA) | payer OTHER, SELFPAY | PROVIDERS: PCP Nurse Practitioner Primary Care; Visit Provider Nurse Practitioner | DX: K59.04 Chronic idiopathic constipation (principal); K21.9 Gastro-esophageal reflux disease without esophagitis; K75.81 Nonalcoholic steatohepatitis (NASH) | CPT/HCPCS: 99212 ==

== ENCOUNTER → 2022-06-12 12:25 | Outpatient (BNVA) | payer OTHER, SELFPAY | PROVIDERS: PCP Nurse Practitioner Primary Care; Visit Provider Anesthesiology | DX: M47.816 Spondylosis without myelopathy or radiculopathy, lumbar region (principal); M17.0 Bilateral primary osteoarthritis of knee | CPT/HCPCS: Q3014 ==

== ENCOUNTER 2022-06-14 11:22 | Outpatient (REF) | payer OTHER, SELFPAY | END 2022-06-14 11:23 | disposition home or self-care (01) | LOC: HO.MDS 11:22 | PROVIDERS: Visit Provider Internal Medicine Pulmonary Disease | DX: J45.50 Severe persistent asthma, uncomplicated (principal) | CPT/HCPCS: 96372 ==

== ENCOUNTER 2022-06-28 09:57 | Outpatient (REF) | payer OTHER, SELFPAY | END 2022-06-28 09:58 | disposition home or self-care (01) | LOC: HO.MDS 09:57 | PROVIDERS: Visit Provider Internal Medicine Pulmonary Disease | DX: J45.50 Severe persistent asthma, uncomplicated (principal) | CPT/HCPCS: 96372 ==

== ENCOUNTER 2022-07-01 09:09 | Emergency (ER) | payer OTHER, SELFPAY ==
--- NOTE | 2022-07-01 09:17 | ECG_ITS ---
Test Reason : chest pain Blood Pressure : / mmHG Vent. Rate : 086 BPM Atrial Rate : 086 BPM P-R Int : 214 ms QRS Dur : 092 ms QT Int : 378 ms P-R-T Axes : 051 -54 036 degrees QTc Int : 452 ms Sinus rhythm with 1st degree A-V block Left anterior fascicular block Minimal voltage criteria for LVH, may be normal variant ( Bala product ) Possible Anterior infarct , age undetermined Abnormal ECG When compared with ECG of 16-MAY-2022 09:17, No significant change was found Referred By: Generic ED Physician Electronically Signed By:Agus Denise
--- NOTE | 2022-07-01 09:35 | MHC.EDTECH ---
EKG completed and signed by
[2022-07-01 09:57] LABS: MANUAL DIFF FLAG NO
[2022-07-01 10:01] LABS: Basophils Percent Auto 0.7 % (0-2); Eosinophils Absolute Auto 0.1 X10*3/uL (0.0-0.4); Eosinophils Percent Auto 2.2 % (0-4); Hematocrit 43.2 % (37.0-47.0); Hemoglobin 14.4 g/dl (12.0-16.0); Lymphocytes Absolute Auto 2.5 X10*3/uL (1.2-4.9); Lymphocytes Percent Auto 45.6 % (20-40); Mean Corpuscular HGB Conc 33.3 g/dl (31.0-35.0); Mean Corpuscular Hemoglobin 31.5 pg (27.0-33.0); Mean Corpuscular Volume 94.5 fL (80.0-98.0); Mean Platelet Volume 9.9 fL (9.4-12.3); Monocytes Absolute Auto 0.4 X10*3/uL (0.1-1.2); Monocytes Percent Auto 6.5 % (2-11); Neutrophils Absolute Auto 2.5 x10*3/uL (2.0-8.3); Platelet Count 273 X10*3/uL (160-400); Red Blood Count 4.57 X10*6/uL (4.20-5.50); Red Cell Distribution Width 13.3 % (11.0-16.0); White Blood Count 5.6 X10*3/uL (4.8-10.8)
[2022-07-01 10:11] VITALS: BP 149/90; PULSE 76; RESP 18; TEMP 37.2; O2SAT 97; BMI 35.0
[2022-07-01 10:12] LABS: Anion Gap 12 (12-20); Blood Urea Nitrogen 20 mg/dL (9-16); Calcium 9.9 mg/dL (8.4-10.2); Carbon Dioxide 27 mmol/L (22-29); Chloride 109 mmol/L (96-108); Estimated Glomerular Filt Rate 57; Glucose Random 150 mg/dL (60-115); Potassium 4.1 mmol/L (3.3-5.1); Sodium 144 mmol/L (135-145)
[2022-07-01 10:23] LABS: Troponin-I High Sensitivity < 2.7 ng/L (<3.5-17.0)
--- NOTE | 2022-07-01 11:10 | ED.CHESTPAIN ---
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 However, she denies any fever, chills, diaphoresis, nausea, shortness of breath, palpitations. Related Data Home Medications Medication Instructions Recorded Confirmed amlodipine 10 mg tablet 10 mg PO BEDTIME 11/20/19 05/30/22 calcium carbonate 600 mg-vitamin 1 tab PO BID 11/20/19 05/30/22 D3 10 mcg (400 unit) tablet cetirizine 10 mg tablet 10 mg PO BEDTIME 11/20/19 05/30/22 potassium chloride 20 mEq 20 meq PO BID 11/20/19 05/30/22 tablet,extended release(part/cryst) risperidone 0.5 mg tablet 0.5 mg PO BID 11/20/19 05/30/22 zolpidem 10 mg tablet 10 mg PO BEDTIME PRN Insomnia 11/20/19 05/30/22 clonazepam 1 mg tablet (Klonopin) 1 mg PO DAILY 03/08/20 05/30/22 montelukast 10 mg tablet 10 mg PO BEDTIME 03/08/20 05/30/22 fluticasone 250 mcg-salmeterol 50 1 ea inhalation BID 06/29/21 05/30/22 mcg/dose blistr powdr for inhalation ipratropium 20 mcg-albuterol 100 1 puff inhalation QID 06/29/21 05/30/22 mcg/actuation mist for inhalation (Combivent Respimat) ipratropium 0.5 mg-albuterol 3 mg 3 ml inhalation Q6H PRN 07/06/21 05/30/22 (2.5 mg base)/3 mL nebulization Respiratory Distress soln multivitamin-ferrous 1 tab PO DAILY 07/06/21 05/30/22 fumarate-folic acid 18 mg-400 mcg tablet (Certavite-Antioxidant) fluoride (sodium) 1.1 % dental appl PO 10/16/21 05/30/22 cream (SF 5000 Plus) enalapril maleate 20 mg tablet 20 mg PO DAILY 01/24/22 05/30/22 buspirone 7.5 mg tablet 7.5 mg PO BID 01/31/22 05/30/22 emtricitabine 200 mg-tenofovir 1 tab PO DAILY 01/31/22 05/30/22 disoproxil fumarate 300 mg tablet sennosides 8.6 mg tablet (senna) 17.2 mg PO BEDTIME constipation 01/31/22 05/30/22 tramadol 50 mg tablet 50 mg PO BID PRN 01/31/22 05/30/22 carbamide peroxide 6.5 % ear drops 0 drp otic (ears) 05/07/22 05/30/22 (Ear Drops (carbamide peroxide)) diclofenac sodium 1 % topical gel g topical 05/07/22 05/30/22 naloxone 4 mg/actuation nasal spray 0 spray intranasal 05/07/22 05/30/22 acetaminophen 325 mg tablet 325 mg PO PRN pain 06/11/22 Previous Rx's Medication Instructions Recorded leg brace (Knee Support Brace) #2 ea 03/08/20 albuterol sulfate 90 mcg/actuation 2 puff inhalation Q4-6H PRN 09/29/20 aerosol inhaler shortness of breath or wheezing #6.7 grams omalizumab 150 mg/mL subcutaneous 300 mg (2 mL) subcut Q2W #4 mL 08/31/21 syringe (Xolair) insulin aspart 6 unit subcut TID #15 mL 12/14/21 (niacinamide)(U-100) 100 unit/mL(3 mL) subcutaneous pen (Fiasp FlexTouch U-100 Insulin) Lactobacil rhamnosus GG 10 billion 1 cap PO DAILY #30 caps 01/02/22 cell-inulin 200 mg sprinkle capsule (BlazeArzeda) peg 3350-electrolytes 236 240 ml PO Q10M 1 day #4,000 mL 01/31/22 gram-22.74 gram-6.74 gram-5.86 gram solution (Golytely) dextrose 40 % oral gel (Glutose-15) 15 g PO DIRECTED for 02/06/22 hypoglycemia #112.5 grams blood-glucose meter (FreeStyle #1 ea 02/28/22 Flash System kit) lancets 28 gauge (FreeStyle #100 ea 02/28/22 Lancets) gabapentin 400 mg capsule 400 mg PO BEDTIME #30 caps 03/06/22 tiotropium bromide 18 mcg capsule 1 cap inhalation DAILY #30 caps 03/14/22 with inhalation device (Spiriva with HandiHaler) pen needle, diabetic 32 gauge x ##100 03/29/22 (UltiCare Pen Needle) pyridoxine (vitamin B6) 100 mg 100 mg PO DAILY #90 tabs 04/05/22 tablet levothyroxine 75 mcg tablet 75 mcg PO QAM #90 tabs 04/11/22 benzonatate 100 mg capsule 100 mg PO TID PRN cough #30 caps 05/10/22 ondansetron 4 mg disintegrating 4 mg PO Q8H PRN nausea and 05/16/22 tablet vomiting #10 tabs atorvastatin 80 mg tablet 80 mg PO BEDTIME #30 tabs 05/28/22 bisacodyl 5 mg tablet,delayed See Rx Instructions PO BEDTIME 30 06/11/22 release (Dulcolax (bisacodyl)) days #90 tabs docusate sodium 100 mg capsule 100 mg PO BID 30 days #60 caps 06/11/22 metoclopramide HCl 10 mg tablet 10 mg PO TID #90 tabs 06/11/22 (Reglan) omeprazole 20 mg capsule,delayed 20 mg PO BID@0630,1630 #60 caps 06/11/22 release plecanatide 3 mg tablet (Trulance) 3 mg PO DAILY 30 days #30 tabs 06/11/22 amoxicillin 875 mg-potassium 1 tab PO BID 7 days #14 tabs 06/18/22 clavulanate 125 mg tablet prednisone 10 mg tablet 40 mg PO DAILY 5 days #20 tabs 06/18/22 Allergies Allergy/AdvReac Type Severity Reaction Status Date / Time aspirin [Aspirin] Allergy Mild ITCHY Verified 06/12/22 12:25 THROAT azithromycin Allergy Unknown Unknown Verified 06/12/22 12:25 naproxen Allergy Unknown Unknown Verified 06/12/22 12:25 simvastatin Allergy Unknown Unknown Verified 06/12/22 12:25 Fish Containing Products Allergy Swelling Verified 06/12/22 12:25 onion [ONION] AdvReac Mild RED FACE Verified 06/12/22 12:25 Review of Systems Review of Systems: Pertinent positives and negatives as stated [facility] Past Medical History Source: nursing notes reviewed Medical History Allergic rhinitis Anxiety and depression Bronchitis Chest pain Cocaine abuse COPD exacerbation Diabetes DVT (deep venous thrombosis) Fibromyalgia HTN (hypertension) Hypothyroidism Low vitamin D level Non-toxic multinodular goiter PTSD (post-traumatic stress disorder) Renal calculi Spondylosis of cervical region without myelopathy or radiculopathy UTI (urinary tract infection) Vertigo Surgical History H/O colonoscopy with polypectomy History of esophagogastroduodenoscopy (EGD) History of hysterectomy History of lithotripsy History of selective injection of anesthetic agent around lumbar nerve root Hx of right breast biopsy Family History Family History Father No problems noted. 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 GENERAL: Well developed, well nourished, in no acute distress. HEAD: Normocephalic/atraumatic EYES: PERRLA, EOMI EARS: Ext canals without abnormality NOSE: Nares patent bilateral OROPHARYNX: no oral lesions noted, posterior pharynx clear NECK: Supple, no adenopathy LUNGS: Normal breath sounds. No adventitious sounds or accessory muscle use. SpO2<97> CARDIOVASCULAR: Regular rate and rhythm without noted murmurs, no JVD or lower extremity edema. ABDOMEN: Soft, non-tender, non-distended with bowel sounds. MUSCULOSKELETAL: No tenderness, deformities, or effusions noted on gross inspection. EXTREMITIES: No cyanosis, clubbing or edema. SKIN: Inspection of the skin reveals no rashes NEUROLOGIC: Alert and oriented x 4. Strength and sensation to light touch were grossly intact x 4. Medical Decision Making Medical Decision Making MDM Narrative: 61-year-old female for which I suspect more of the atypical chest pain potentially associated with acid reflux right costochondritis. I have no clinical suspicion for pneumonia per primary cardiac etiology. Will obtain basic labs to include EKG. I reviewed all investigations and my interpretation is that patient had acid reflux, 1143: I found out that patient eloped prior to receiving medications. Differential Diagnosis Please see the discussion above Lab Data Please see the discussion above 07/01/22 09:47 07/01/22 09:47 Labs: Lab Results 07/01/22 07/01/22 07/01/22 Range/Units 09:47 09:47 09:47 WBC 5.6 (4.8-10.8) X10*3/uL RBC 4.57 (4.20-5.50) X10*6/uL Hgb 14.4 (12.0-16.0) g/dl Hct 43.2 (37.0-47.0) % MCV 94.5 (80.0-98.0) fL MCH 31.5 (27.0-33.0) pg MCHC 33.3 (31.0-35.0) g/dl RDW 13.3 (11.0-16.0) % Plt Count 273 (160-400) X10*3/uL MPV 9.9 (9.4-12.3) fL Immature Gran % (Auto) 0.0 (0.0-0.4) % Neut % (Auto) 45.0 (45-73) % Lymph % (Auto) 45.6 H (20-40) % [place] % (Auto) 6.5 (2-11) % Eos % (Auto) 2.2 (0-4) % Baso % (Auto) 0.7 (0-2) % Lymph # (Auto) 2.5 (1.2-4.9) X10*3/uL [place] # (Auto) 0.4 (0.1-1.2) X10*3/uL Eos # (Auto) 0.1 (0.0-0.4) X10*3/uL Baso # (Auto) 0.0 (0.0-0.2) X10*3/uL Abs Immat Gran (auto) 0.00 (0.00-0.03) X10*3/uL Absolute Neuts (auto) 2.5 (2.0-8.3) x10*3/uL Absolute Nucleated RBC 0.000 (0.0-0.012) X10*3/uL Nucleated RBC % (auto) 0.0 (0.0-0.2) /100WBC Sodium 144 (135-145) mmol/L Potassium 4.1 (3.3-5.1) mmol/L Chloride 109 H (96-108) mmol/L Carbon Dioxide 27 (22-29) mmol/L Anion Gap 12 (12-20) BUN 20 H (9-16) mg/dL Creatinine 0.99 (0.5-1.4) mg/dL Estim Creat Clear Calc TNP Estimated GFR 57 Random Glucose 150 H (60-115) mg/dL Calcium 9.9 D (8.4-10.2) mg/dL Troponin I High Sens < 2.7 (<3.5-17.0) ng/L Independent Interpretation I performed an independent interpretation of an: EKG Interpretation: Sinus rhythm with first-degree AV block (baseline), HR-86, no STEMI, MI -214, QRS/QTC is within normal limits. External Record Review External record reviewed: Outpatient record and Prior outpatient labs Chronic Conditions Patient?s care impacted by: Hypertension Discharge Plan Discharge Clinical Impression: Atypical chest pain Patient Disposition: Elopement Prescriptions: No Action Xolair 150 mg/mL syringe 300 mg subcut Q2W Qty: 4 11RF Fiasp FlexTouch U-100 Insulin 100 unit/mL (3 mL) insulin pen 6 unit subcut TID Qty: 15 5RF [employer] 10 billion cell -200 mg capsule, sprinkle 1 cap PO DAILY Qty: 30 6RF dextrose [Glutose-15] 40 % gel 15 g PO DIRECTED Qty: 112.5 5RF (DME) lancets [FreeStyle Lancets] 28 gauge misc See Rx Instructions .Route Qty: 100 5RF Rx Instructions: check blood sugars 3 times a day (DME) blood-glucose meter [FreeStyle Flash System] Kit See Rx Instructions .Route Qty: 1 0RF Rx Instructions: As directed gabapentin 400 mg capsule 400 mg PO BEDTIME Qty: 30 4RF Spiriva with HandiHaler 18 mcg capsule, w/inhalation device 1 cap inhalation DAILY Qty: 30 6RF (DME) pen needle, diabetic [UltiCare Pen Needle] 32 gauge x 5/32 needle See Rx Instructions .ROUTE .COMPLEX Qty: 100 5RF Dose Instruction: USE FOUR TIMES DAILY Rx Instructions: USE FOUR TIMES DAILY levothyroxine 75 mcg tablet 75 mcg PO QAM Qty: 90 4RF atorvastatin 80 mg tablet 80 mg PO BEDTIME Qty: 30 4RF prednisone 10 mg tablet 40 mg PO DAILY 5 Days Qty: 20 0RF amoxicillin-pot clavulanate 875-125 mg tablet 1 tab PO BID 7 Days Qty: 14 0RF albuterol sulfate 90 mcg/actuation HFA aerosol inhaler 2 puff inhalation Q4-6H PRN (Reason: shortness of breath or wheezing) Qty: 6.7 0RF ipratropium-albuterol 0.5 mg-3 mg(2.5 mg base)/3 mL Solution For Nebulization 3 ml INHALATION Q6H PRN (Reason: Respiratory Distress) Certavite-Antioxidant 18-400 mg-mcg Tablet 1 tab PO DAILY ondansetron 4 mg tablet,disintegrating 4 mg PO Q8H PRN (Reason: nausea and vomiting) Qty: 10 0RF benzonatate 100 mg capsule 100 mg PO TID PRN (Reason: cough) Qty: 30 0RF montelukast 10 mg tablet 10 mg PO BEDTIME clonazepam [Klonopin] 1 mg tablet 1 mg PO DAILY Rx Instructions: administer 30 minutes before bedtime (DME) Knee Support Brace Misc See Rx Instructions .ROUTE .MEDSUPPLY Qty: 2 0RF Rx Instructions: As directed zolpidem 10 mg tablet 10 mg PO BEDTIME PRN (Reason: Insomnia) risperidone 0.5 mg tablet 0.5 mg PO BID amlodipine 10 mg tablet 10 mg PO BEDTIME calcium carbonate-vitamin D3 600 mg(1,500mg) -400 unit tablet 1 tab PO BID potassium chloride 20 mEq tablet,ER particles/crystals 20 meq PO BID cetirizine 10 mg tablet 10 mg PO BEDTIME Combivent Respimat 20-100 mcg/actuation mist 1 puff inhalation QID fluticasone propion-salmeterol 250-50 mcg/dose blister with device 1 ea inhalation BID enalapril maleate 20 mg tablet 20 mg PO DAILY pyridoxine (vitamin B6) 100 mg tablet 100 mg PO DAILY Qty: 90 3RF acetaminophen 325 mg tablet 325 mg PO PRN (Reason: pain) fluoride (sodium) [SF 5000 Plus] 1.1 % cream PO buspirone 7.5 mg tablet 7.5 mg PO BID tramadol 50 mg tablet 50 mg PO BID PRN sennosides [senna] 8.6 mg tablet 17.2 mg PO BEDTIME emtricitabine-tenofovir (TDF) 200-300 mg tablet 1 tab PO DAILY peg 3350-electrolytes [Golytely] 236-22.74-6.74 -5.86 gram recon soln 240 ml PO Q10M 1 Days Qty: 4000 0RF Rx Instructions: until fecal effluent is clear; do not exceed a total volume of 2,000 mL bisacodyl [Dulcolax (bisacodyl)] 5 mg tablet,delayed release (DR/EC) See Rx Instructions PO BEDTIME 30 Days Qty: 90 6RF Rx Instructions: 2 tabs qhs and 1 qam orally bedtime; docusate sodium 100 mg capsule 100 mg PO BID 30 Days Qty: 60 6RF metoclopramide HCl [Reglan] 10 mg tablet 10 mg PO TID Qty: 90 6RF omeprazole 20 mg capsule,delayed release(DR/EC) 20 mg PO BID@0630,1630 Qty: 60 6RF Trulance 3 mg tablet 3 mg PO DAILY 30 Days Qty: 30 6RF Rx Instructions: Take one tablet by mouth once a day naloxone 4 mg/actuation spray,non-aerosol 0 spray intranasal diclofenac sodium 1 % gel topical Ear Drops (carbamide peroxide) 6.5 % drops 0 drp otic (ears)
--- NOTE | 2022-07-01 11:31 | PC.NURSE ---
Pt not in room when attempting to medicate. Unable to give meds and d/c
== END 2022-07-01 11:55 | disposition left against medical advice (07) ==
PROVIDERS: Emergency Provider Student in an Organized Health Care Education/Training Program; PCP Nurse Practitioner Primary Care
DX: R07.89 Other chest pain (principal); Z79.899 Other long term (current) drug therapy
CPT/HCPCS: 36415; 80048; 84484; 85025; 93005; 99283; 99284

== ENCOUNTER 2022-07-12 09:54 | Outpatient (REF) | payer OTHER, SELFPAY | END 2022-07-12 09:55 | disposition home or self-care (01) | LOC: HO.MDS 09:54 | PROVIDERS: Visit Provider Internal Medicine Pulmonary Disease | DX: J45.50 Severe persistent asthma, uncomplicated (principal) | CPT/HCPCS: 96372 ==

== ENCOUNTER → 2022-07-17 13:17 | Outpatient (BNVA) | payer OTHER, SELFPAY | PROVIDERS: PCP Nurse Practitioner Primary Care; Visit Provider Internal Medicine Pulmonary Disease | DX: J44.0 Chronic obstructive pulmonary disease with (acute) lower respiratory infection (principal); J45.909 Unspecified asthma, uncomplicated; R06.09 Other forms of dyspnea; Z79.899 Other long term (current) drug therapy | CPT/HCPCS: 99212 ==

== ENCOUNTER 2022-07-19 08:19 | Emergency (ER) | payer OTHER, SELFPAY ==
--- NOTE | ~2022-07-19 | XR_ITS ---
EXAMINATION: XR CHEST CLINICAL INFORMATION: Chest pain COMPARISON: May 10, 2022 TECHNIQUE: AP portable view of the chest was obtained. FINDINGS: No significant abnormality is noted involving the heart, lungs, mediastinum, bony thorax or soft tissues. XR/XR chest 1V IMPRESSION: No acute disease.
[2022-07-19 08:31] VITALS: BP 144/89; PULSE 72; RESP 16; TEMP 36.6; O2SAT 99; BMI 34.6
--- NOTE | 2022-07-19 08:54 | ED.CHESTPAIN ---
HPI - Chest Pain General Chief Complaint: Chest Pain Stated Complaint: chest pain, swollen Time Seen by Provider: 07/19/22 08:24 Source: patient Mode of arrival: ambulatory Limitations: no limitations History of Present Illness HPI narrative: chest pain last night and today. She is on an antibiotic for bronchitis. She is also on a diuretic. patient has a history of COPD and diabetes but no CAD. Patient had a nuclear stress test that is reportedly normal at a cardiology office. MD complaint: chest pain Onset (ago): hour(s) Timing of current episode: episodic Onset: during rest Pain location: substernal Severity: mild Quality: sharp Risk Factors Coronary artery disease risk factors: diabetes, hyperlipidemia and hypertension Related Data Home Medications Medication Instructions Recorded Confirmed amlodipine 10 mg tablet 10 mg PO BEDTIME 11/20/19 05/30/22 calcium carbonate 600 mg-vitamin 1 tab PO BID 11/20/19 05/30/22 D3 10 mcg (400 unit) tablet cetirizine 10 mg tablet 10 mg PO BEDTIME 11/20/19 05/30/22 potassium chloride 20 mEq 20 meq PO BID 11/20/19 05/30/22 tablet,extended release(part/cryst) risperidone 0.5 mg tablet 0.5 mg PO BID 11/20/19 05/30/22 zolpidem 10 mg tablet 10 mg PO BEDTIME PRN Insomnia 11/20/19 05/30/22 clonazepam 1 mg tablet (Klonopin) 1 mg PO DAILY 03/08/20 05/30/22 montelukast 10 mg tablet 10 mg PO BEDTIME 03/08/20 05/30/22 fluticasone 250 mcg-salmeterol 50 1 ea inhalation BID 06/29/21 05/30/22 mcg/dose blistr powdr for inhalation ipratropium 20 mcg-albuterol 100 1 puff inhalation QID 06/29/21 05/30/22 mcg/actuation mist for inhalation (Combivent Respimat) ipratropium 0.5 mg-albuterol 3 mg 3 ml inhalation Q6H PRN 07/06/21 05/30/22 (2.5 mg base)/3 mL nebulization Respiratory Distress soln multivitamin-ferrous 1 tab PO DAILY 07/06/21 05/30/22 fumarate-folic acid 18 mg-400 mcg tablet (Certavite-Antioxidant) fluoride (sodium) 1.1 % dental appl PO 10/16/21 05/30/22 cream (SF 5000 Plus) enalapril maleate 20 mg tablet 20 mg PO DAILY 01/24/22 05/30/22 buspirone 7.5 mg tablet 7.5 mg PO BID 01/31/22 05/30/22 emtricitabine 200 mg-tenofovir 1 tab PO DAILY 01/31/22 05/30/22 disoproxil fumarate 300 mg tablet tramadol 50 mg tablet 50 mg PO BID PRN 01/31/22 05/30/22 carbamide peroxide 6.5 % ear drops 0 drp otic (ears) 05/07/22 05/30/22 (Ear Drops (carbamide peroxide)) diclofenac sodium 1 % topical gel g topical 05/07/22 05/30/22 naloxone 4 mg/actuation nasal spray 0 spray intranasal 05/07/22 05/30/22 acetaminophen 325 mg tablet 325 mg PO PRN pain 06/11/22 Previous Rx's Medication Instructions Recorded leg brace (Knee Support Brace) #2 ea 03/08/20 albuterol sulfate 90 mcg/actuation 2 puff inhalation Q4-6H PRN 09/29/20 aerosol inhaler shortness of breath or wheezing #6.7 grams omalizumab 150 mg/mL subcutaneous 300 mg (2 mL) subcut Q2W #4 mL 08/31/21 syringe (Xolair) insulin aspart 6 unit subcut TID #15 mL 12/14/21 (niacinamide)(U-100) 100 unit/mL(3 mL) subcutaneous pen (Fiasp FlexTouch U-100 Insulin) Lactobacil rhamnosus GG 10 billion 1 cap PO DAILY #30 caps 01/02/22 cell-inulin 200 mg sprinkle capsule ([employer]) peg 3350-electrolytes 236 240 ml PO Q10M 1 day #4,000 mL 01/31/22 gram-22.74 gram-6.74 gram-5.86 gram solution (Golytely) dextrose 40 % oral gel (Glutose-15) 15 g PO DIRECTED for 02/06/22 hypoglycemia #112.5 grams blood-glucose meter (FreeStyle #1 ea 02/28/22 Flash System kit) gabapentin 400 mg capsule 400 mg PO BEDTIME #30 caps 03/06/22 tiotropium bromide 18 mcg capsule 1 cap inhalation DAILY #30 caps 03/14/22 with inhalation device (Spiriva with HandiHaler) pen needle, diabetic 32 gauge x ##100 03/29/22 (UltiCare Pen Needle) pyridoxine (vitamin B6) 100 mg 100 mg PO DAILY #90 tabs 04/05/22 tablet levothyroxine 75 mcg tablet 75 mcg PO QAM #90 tabs 04/11/22 benzonatate 100 mg capsule 100 mg PO TID PRN cough #30 caps 05/10/22 ondansetron 4 mg disintegrating 4 mg PO Q8H PRN nausea and 05/16/22 tablet vomiting #10 tabs atorvastatin 80 mg tablet 80 mg PO BEDTIME #30 tabs 05/28/22 bisacodyl 5 mg tablet,delayed See Rx Instructions PO BEDTIME 30 06/11/22 release (Dulcolax (bisacodyl)) days #90 tabs docusate sodium 100 mg capsule 100 mg PO BID 30 days #60 caps 06/11/22 metoclopramide HCl 10 mg tablet 10 mg PO TID #90 tabs 06/11/22 (Reglan) omeprazole 20 mg capsule,delayed 20 mg PO BID@0630,1630 #60 caps 06/11/22 release plecanatide 3 mg tablet (Trulance) 3 mg PO DAILY 30 days #30 tabs 06/11/22 amoxicillin 875 mg-potassium 1 tab PO BID 7 days #14 tabs 06/18/22 clavulanate 125 mg tablet prednisone 10 mg tablet 40 mg PO DAILY 5 days #20 tabs 06/18/22 semaglutide 0.25 mg or 0.5 mg (2 0.5 mg (0.8 mL) subcut QWEEK #3 mL 07/02/22 mg/3 mL) subcutaneous pen injector (Ozempic) sennosides 8.6 mg tablet (senna) 17.2 mg PO BEDTIME constipation 07/04/22 #60 tabs blood sugar diagnostic (FreeStyle #100 ea 07/16/22 Lite Strips) lancets 28 gauge (FreeStyle #100 ea 07/16/22 Lancets) furosemide 40 mg tablet 40 mg PO DAILY 7 days #7 tabs 07/17/22 flash glucose scanning reader #1 ea 07/18/22 ([employer] Jalil 2 [place]) Allergies Allergy/AdvReac Type Severity Reaction Status Date / Time aspirin [Aspirin] Allergy Mild ITCHY Verified 07/17/22 13:23 THROAT azithromycin Allergy Unknown Unknown Verified 07/17/22 13:23 naproxen Allergy Unknown Unknown Verified 07/17/22 13:23 simvastatin Allergy Unknown Unknown Verified 07/17/22 13:23 Fish Containing Products Allergy Swelling Verified 07/17/22 13:23 onion [ONION] AdvReac Mild RED FACE Verified 07/17/22 13:23 Review of Systems Review of Systems: Yes all other systems are reviewed and are negative Cardiovascular: Cardiovascular: Reports chest pain Neurologic: Denies Sensory deficit (Neuro) [facility] Past Medical History Medical History Allergic rhinitis Anxiety and depression Bronchitis Chest pain Cocaine abuse COPD exacerbation Diabetes DVT (deep venous thrombosis) Fibromyalgia HTN (hypertension) Hypothyroidism Low vitamin D level Non-toxic multinodular goiter PTSD (post-traumatic stress disorder) Renal calculi Spondylosis of cervical region without myelopathy or radiculopathy UTI (urinary tract infection) Vertigo Surgical History H/O colonoscopy with polypectomy History of esophagogastroduodenoscopy (EGD) History of hysterectomy History of lithotripsy History of selective injection of anesthetic agent around lumbar nerve root Hx of right breast biopsy Family History Family History Father No problems noted. 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 Physical Exam Vital Signs: Vital Signs: Last Vital Signs Temp 97.8 F 07/19/22 08:31 Pulse 72 07/19/22 08:31 Resp 16 07/19/22 08:31 BP 144/89 H 07/19/22 08:31 Pulse Ox 99 07/19/22 08:31 O2 Del Method Room Air 07/19/22 08:31 BMI result Body Mass Index 34.6 Const: Other: anxious, pressured speech General: healthy appearing Nutritional Appearance: average body habitus Orientation/consciousness: oriented to person and patient oriented x3 Limitations: no limitations HEENT: Head: Yes normal to inspection Ears: external ears normal General nose exam: Normal external nose present Mouth: Normal oral and palatal mucosa present and oropharynx normal Throat: Yes posterior oropharynx normal Eyes: General: appearance normal, both eyes and all related structures Neck: Other: supple Neck: Yes normal visual inspection Chest: Chest palpation & inspection: normal inspection of the chest Resp: Auscultation: clear to auscultation bilaterally Cardio: Jugular venous distension: no JVD Rate: regular rate Rhythm: regular rhythm Heart sounds: S1 normal heart sound present and S2 normal heart sound present GI: Inspection: Yes normal to inspection Palpation (GI): Soft to palpation, nontender and No hepatosplenomegaly present Auscultation: normal bowel sounds : General: Yes no CVA tenderness Back/Spine/Pelvis: Back: no CVA tenderness Skin: General skin exam: no rashes or lesions noted Neuro: General: oriented to person and patient oriented x3 Cranial nerves: Yes CN's II-XII intact bilaterally Motor exam (neuro): 5/5 motor strength present throughout Sensory Exam: No Sensory deficit (Neuro) Extrem: General: Yes normal to inspection Psych: Other: anxious pressured speech Course Reevaluation(s) Reevaluation #1: cardiac work up and xray negative will discharge home Time: 10:29 Medical Decision Making Differential Diagnosis Differential Diagnoses: The differential diagnosis associated with the presentation includes (cardiac ischemia, pneumonia, costrochondritis, anxiety) Admission/Observation Consideration of admission/observation: Escalation of care including admission/observation considered (in this 61 yo female with with DM, HTN and high cholesterol admission was considered) Lab Data MDM Lab Attestation statement: I reviewed the patient's lab results. 07/19/22 09:24 07/19/22 09:24 Labs: Lab Results 07/19/22 07/19/22 07/19/22 Range/Units 09:24 09:24 09:24 WBC 4.9 (4.8-10.8) X10*3/uL RBC 4.60 (4.20-5.50) X10*6/uL Hgb 14.4 (12.0-16.0) g/dl Hct 43.2 (37.0-47.0) % MCV 93.9 (80.0-98.0) fL MCH 31.3 (27.0-33.0) pg MCHC 33.3 (31.0-35.0) g/dl RDW 13.5 (11.0-16.0) % Plt Count 275 (160-400) X10*3/uL MPV 9.2 L (9.4-12.3) fL Immature Gran % (Auto) 0.2 (0.0-0.4) % Neut % (Auto) 65.8 (45-73) % Lymph % (Auto) 28.9 (20-40) % Amelia % (Auto) 4.1 (2-11) % Eos % (Auto) 0.6 (0-4) % Baso % (Auto) 0.4 (0-2) % Lymph # (Auto) 1.4 (1.2-4.9) X10*3/uL Amelia # (Auto) 0.2 (0.1-1.2) X10*3/uL Eos # (Auto) 0.0 (0.0-0.4) X10*3/uL Baso # (Auto) 0.0 (0.0-0.2) X10*3/uL Abs Immat Gran (auto) 0.01 (0.00-0.03) X10*3/uL Absolute Neuts (auto) 3.2 (2.0-8.3) x10*3/uL Absolute Nucleated RBC 0.000 (0.0-0.012) X10*3/uL Nucleated RBC % (auto) 0.0 (0.0-0.2) /100WBC Sodium 144 (135-145) mmol/L Potassium 4.1 (3.3-5.1) mmol/L Chloride 109 H (96-108) mmol/L Carbon Dioxide 26 (22-29) mmol/L Anion Gap 13 (12-20) BUN 14 (9-16) mg/dL Creatinine 0.88 (0.5-1.4) mg/dL Estim Creat Clear Calc 73.5 Estimated GFR > 60 Random Glucose 178 H (60-115) mg/dL Calcium 9.4 (8.4-10.2) mg/dL Troponin I High Sens < 2.7 (<3.5-17.0) ng/L Independent Interpretation I performed an independent interpretation of an: EKG (sinus [address] or twave changes) and Plain X-Ray (no infiltrate) Chronic Conditions Patient?s care impacted by: Diabetes and Hypertension Social Determinants Patient?s care significantly limited by Social Determinants of Health including: Low income and Alcoholism and drug addiction in family Discharge Plan Discharge Clinical Impression: Chest pain Patient Disposition: Home, Self-Care Instructions: Chest Pain (ED) Prescriptions: No Action Xolair 150 mg/mL syringe 300 mg subcut Q2W Qty: 4 11RF Fiasp FlexTouch U-100 Insulin 100 unit/mL (3 mL) insulin pen 6 unit subcut TID Qty: [address] [facility] 10 billion cell -200 mg capsule, sprinkle 1 cap PO DAILY Qty: 30 6RF dextrose [Glutose-15] 40 % gel 15 g PO DIRECTED Qty: 112.5 5RF (DME) blood-glucose meter [FreeStyle Flash System] Kit See Rx Instructions .Route Qty: 1 0RF Rx Instructions: As directed gabapentin 400 mg capsule 400 mg PO BEDTIME Qty: 30 4RF Spiriva with HandiHaler 18 mcg capsule, w/inhalation device 1 cap inhalation DAILY Qty: 30 6RF (DME) pen needle, diabetic [UltiCare Pen Needle] 32 gauge x 5/32 needle See Rx Instructions .ROUTE .COMPLEX Qty: 100 5RF Dose Instruction: USE FOUR TIMES DAILY Rx Instructions: USE FOUR TIMES DAILY levothyroxine 75 mcg tablet 75 mcg PO QAM Qty: 90 4RF atorvastatin 80 mg tablet 80 mg PO BEDTIME Qty: 30 4RF prednisone 10 mg tablet 40 mg PO DAILY 5 Days Qty: 20 0RF amoxicillin-pot clavulanate 875-125 mg tablet 1 tab PO BID 7 Days Qty: 14 0RF Ozempic 0.25 mg or 0.5 mg (2 mg/3 mL) pen injector 0.5 mg subcut QWEEK Qty: 3 5RF sennosides [senna] 8.6 mg tablet 17.2 mg PO BEDTIME Qty: 60 1RF (DME) FreeStyle Lite Strips Strip See Rx Instructions .Route Qty: 100 5RF Rx Instructions: Check blood sugars 4x a day. (DME) lancets [FreeStyle Lancets] 28 gauge misc See Rx Instructions .Route Qty: 100 5RF Rx Instructions: check blood sugars 3 times a day (DME) FreeStyle Jalil 2 [place] Misc See Rx Instructions .Route Qty: 1 0RF Rx Instructions: As directed albuterol sulfate 90 mcg/actuation HFA aerosol inhaler 2 puff inhalation Q4-6H PRN (Reason: shortness of breath or wheezing) Qty: 6.7 0RF ipratropium-albuterol 0.5 mg-3 mg(2.5 mg base)/3 mL Solution For Nebulization 3 ml INHALATION Q6H PRN (Reason: Respiratory Distress) Certavite-Antioxidant 18-400 mg-mcg Tablet 1 tab PO DAILY ondansetron 4 mg tablet,disintegrating 4 mg PO Q8H PRN (Reason: nausea and vomiting) Qty: 10 0RF benzonatate 100 mg capsule 100 mg PO TID PRN (Reason: cough) Qty: 30 0RF montelukast 10 mg tablet 10 mg PO BEDTIME clonazepam [Klonopin] 1 mg tablet 1 mg PO DAILY Rx Instructions: administer 30 minutes before bedtime (DME) Knee Support Brace Misc See Rx Instructions .ROUTE .MEDSUPPLY Qty: 2 0RF Rx Instructions: As directed zolpidem 10 mg tablet 10 mg PO BEDTIME PRN (Reason: Insomnia) risperidone 0.5 mg tablet 0.5 mg PO BID amlodipine 10 mg tablet 10 mg PO BEDTIME calcium carbonate-vitamin D3 600 mg(1,500mg) -400 unit tablet 1 tab PO BID potassium chloride 20 mEq tablet,ER particles/crystals 20 meq PO BID cetirizine 10 mg tablet 10 mg PO BEDTIME Combivent Respimat 20-100 mcg/actuation mist 1 puff inhalation QID fluticasone propion-salmeterol 250-50 mcg/dose blister with device 1 ea inhalation BID enalapril maleate 20 mg tablet 20 mg PO DAILY pyridoxine (vitamin B6) 100 mg tablet 100 mg PO DAILY Qty: 90 3RF acetaminophen 325 mg tablet 325 mg PO PRN (Reason: pain) fluoride (sodium) [SF 5000 Plus] 1.1 % cream PO buspirone 7.5 mg tablet 7.5 mg PO BID tramadol 50 mg tablet 50 mg PO BID PRN emtricitabine-tenofovir (TDF) 200-300 mg tablet 1 tab PO DAILY peg 3350-electrolytes [Golytely] 236-22.74-6.74 -5.86 gram recon soln 240 ml PO Q10M 1 Days Qty: 4000 0RF Rx Instructions: until fecal effluent is clear; do not exceed a total volume of 2,000 mL bisacodyl [Dulcolax (bisacodyl)] 5 mg tablet,delayed release (DR/EC) See Rx Instructions PO BEDTIME 30 Days Qty: 90 6RF Rx Instructions: 2 tabs qhs and 1 qam orally bedtime; docusate sodium 100 mg capsule 100 mg PO BID 30 Days Qty: 60 6RF metoclopramide HCl [Reglan] 10 mg tablet 10 mg PO TID Qty: 90 6RF omeprazole 20 mg capsule,delayed release(DR/EC) 20 mg PO BID@0630,1630 Qty: 60 6RF Trulance 3 mg tablet 3 mg PO DAILY 30 Days Qty: 30 6RF Rx Instructions: Take one tablet by mouth once a day naloxone 4 mg/actuation spray,non-aerosol 0 spray intranasal diclofenac sodium 1 % gel topical Ear Drops (carbamide peroxide) 6.5 % drops 0 drp otic (ears) furosemide 40 mg tablet 40 mg PO DAILY 7 Days Qty: 7 0RF Referrals: Sariah Vickers [employer] [Primary Care Provider] - 5 days
--- NOTE | 2022-07-19 08:59 | ECG_ITS ---
Test Reason : CHEST PAIN Blood Pressure : / mmHG Vent. Rate : 065 BPM Atrial Rate : 065 BPM P-R Int : 248 ms QRS Dur : 106 ms QT Int : 432 ms P-R-T Axes : 049 -43 024 degrees QTc Int : 449 ms Sinus rhythm with 1st degree A-V block Left axis deviation Minimal voltage criteria for LVH, may be normal variant ( Bala product ) Abnormal ECG When compared with ECG of 01-JUL-2022 09:17, No significant change was found Referred By: Juan Ramon Vickers Electronically Signed By:BEHZAD LOUIE MD
[2022-07-19 09:32] LABS: Basophils Percent Auto 0.4 % (0-2); Eosinophils Percent Auto 0.6 % (0-4); Hematocrit 43.2 % (37.0-47.0); Hemoglobin 14.4 g/dl (12.0-16.0); Imm Gran Abs Auto 0.01 X10*3/uL (0.00-0.03); Imm Gran Pct Auto 0.2 % (0.0-0.4); Lymphocytes Absolute Auto 1.4 X10*3/uL (1.2-4.9); Lymphocytes Percent Auto 28.9 % (20-40); MANUAL DIFF FLAG NO; Mean Corpuscular HGB Conc 33.3 g/dl (31.0-35.0); Mean Corpuscular Hemoglobin 31.3 pg (27.0-33.0); Mean Corpuscular Volume 93.9 fL (80.0-98.0); Mean Platelet Volume 9.2 fL (9.4-12.3); Monocytes Absolute Auto 0.2 X10*3/uL (0.1-1.2); Monocytes Percent Auto 4.1 % (2-11); Neutrophils Absolute Auto 3.2 x10*3/uL (2.0-8.3); Neutrophils Percent Auto 65.8 % (45-73); Platelet Count 275 X10*3/uL (160-400); Red Cell Distribution Width 13.5 % (11.0-16.0); White Blood Count 4.9 X10*3/uL (4.8-10.8)
--- NOTE | 2022-07-19 09:42 | PC.NURSE ---
pt a&o x4, [place] speaking only, calm, cooperative. pt reports sob and midsternal chest pain that is similar to previous episodes that kept her up all night. pt reports she was also dx with bronchitis and prescried abx and prednisone on friday with no relief. pt changed over to hospital attire, placed on pvc monitor, labs drawn, and EKG done. pt resting quietly on stretcher in no apparent distress. vss. wctm
[2022-07-19 09:49] LABS: Anion Gap 13 (12-20); Blood Urea Nitrogen 14 mg/dL (9-16); Calcium 9.4 mg/dL (8.4-10.2); Carbon Dioxide 26 mmol/L (22-29); Chloride 109 mmol/L (96-108); Creatinine Clr Calc Pharmacy 73.5; Estimated Glomerular Filt Rate > 60; Glucose Random 178 mg/dL (60-115); Potassium 4.1 mmol/L (3.3-5.1); Sodium 144 mmol/L (135-145)
[2022-07-19 10:03] LABS: Troponin-I High Sensitivity < 2.7 ng/L (<3.5-17.0)
[2022-07-19 10:34] VITALS: BP 135/74; PULSE 68; RESP 16; TEMP 36.8; O2SAT 97
== END 2022-07-19 11:07 | disposition home or self-care (01) ==
PROVIDERS: Emergency Provider Emergency Medicine; PCP Nurse Practitioner Primary Care
DX: R07.9 Chest pain, unspecified (principal); E11.9 Type 2 diabetes mellitus without complications; I10 Essential (primary) hypertension; E78.5 Hyperlipidemia, unspecified; Z79.4 Long term (current) use of insulin; Z79.02 Long term (current) use of antithrombotics/antiplatelets; Z79.899 Other long term (current) drug therapy
CPT/HCPCS: 36415; 71045; 80048; 84484; 85025; 93005; 99283; 99284

== ENCOUNTER → 2022-07-23 12:06 | Outpatient (BNVA) | payer OTHER, SELFPAY | PROVIDERS: PCP Nurse Practitioner Primary Care; Visit Provider Registered Nurse Diabetes Educator | DX: E11.65 Type 2 diabetes mellitus with hyperglycemia (principal) | CPT/HCPCS: 99211 ==

== ENCOUNTER 2022-07-26 09:03 | Outpatient (REF) | payer OTHER, SELFPAY | END 2022-07-26 09:04 | disposition home or self-care (01) | LOC: HO.MDS 09:03 | PROVIDERS: Visit Provider Internal Medicine Pulmonary Disease | DX: J45.50 Severe persistent asthma, uncomplicated (principal) | CPT/HCPCS: 96372 ==

== ENCOUNTER 2022-08-09 08:30 | Outpatient (REF) | payer OTHER, SELFPAY | END 2022-08-09 08:31 | disposition home or self-care (01) | LOC: HO.MDS 08:30 | PROVIDERS: Visit Provider Internal Medicine Pulmonary Disease | DX: J45.50 Severe persistent asthma, uncomplicated (principal) | CPT/HCPCS: 96372 ==

== ENCOUNTER → 2022-08-14 10:32 | Outpatient (BNVA) | payer OTHER, SELFPAY | PROVIDERS: PCP Nurse Practitioner Primary Care; Visit Provider Dietitian, Registered | DX: E11.65 Type 2 diabetes mellitus with hyperglycemia (principal); Z71.3 Dietary counseling and surveillance | CPT/HCPCS: 97803 ==

== ENCOUNTER 2022-08-22 16:48 | Emergency (ER) | payer OTHER, SELFPAY ==
[2022-08-22 17:13] VITALS: BP 140/91; PULSE 88; RESP 20; TEMP 36; O2SAT 94; BMI 35.0
--- NOTE | 2022-08-22 17:17 | ED.GENADULT ---
HPI - General Adult General Chief complaint: General Medical Stated complaint: Bp high/dizziness/chest pain Time Seen by Provider: 08/22/22 21:13 Related Data Home Medications Medication Instructions Recorded Confirmed amlodipine 10 mg tablet 10 mg PO BEDTIME 11/20/19 05/30/22 calcium carbonate 600 mg-vitamin 1 tab PO BID 11/20/19 05/30/22 D3 10 mcg (400 unit) tablet cetirizine 10 mg tablet 10 mg PO BEDTIME 11/20/19 05/30/22 potassium chloride 20 mEq 20 meq PO BID 11/20/19 05/30/22 tablet,extended release(part/cryst) risperidone 0.5 mg tablet 0.5 mg PO BID 11/20/19 05/30/22 zolpidem 10 mg tablet 10 mg PO BEDTIME PRN Insomnia 11/20/19 05/30/22 clonazepam 1 mg tablet (Klonopin) 1 mg PO DAILY 03/08/20 05/30/22 montelukast 10 mg tablet 10 mg PO BEDTIME 03/08/20 05/30/22 fluticasone 250 mcg-salmeterol 50 1 ea inhalation BID 06/29/21 05/30/22 mcg/dose blistr powdr for inhalation ipratropium 0.5 mg-albuterol 3 mg 3 ml inhalation Q6H PRN 07/06/21 05/30/22 (2.5 mg base)/3 mL nebulization Respiratory Distress soln multivitamin-ferrous 1 tab PO DAILY 07/06/21 05/30/22 fumarate-folic acid 18 mg-400 mcg tablet (Certavite-Antioxidant) fluoride (sodium) 1.1 % dental appl PO 10/16/21 05/30/22 cream (SF 5000 Plus) enalapril maleate 20 mg tablet 20 mg PO DAILY 01/24/22 05/30/22 buspirone 7.5 mg tablet 7.5 mg PO BID 01/31/22 05/30/22 emtricitabine 200 mg-tenofovir 1 tab PO DAILY 01/31/22 05/30/22 disoproxil fumarate 300 mg tablet tramadol 50 mg tablet 50 mg PO BID PRN 01/31/22 05/30/22 carbamide peroxide 6.5 % ear drops 0 drp otic (ears) 05/07/22 05/30/22 (Ear Drops (carbamide peroxide)) diclofenac sodium 1 % topical gel g topical 05/07/22 05/30/22 naloxone 4 mg/actuation nasal spray 0 spray intranasal 05/07/22 05/30/22 acetaminophen 325 mg tablet 325 mg PO PRN pain 06/11/22 Previous Rx's Medication Instructions Recorded leg brace (Knee Support Brace) #2 ea 03/08/20 albuterol sulfate 90 mcg/actuation 2 puff inhalation Q4-6H PRN 09/29/20 aerosol inhaler shortness of breath or wheezing #6.7 grams omalizumab 150 mg/mL subcutaneous 300 mg (2 mL) subcut Q2W #4 mL 08/31/21 syringe (Xolair) insulin aspart 6 unit subcut TID #15 mL 12/14/21 (niacinamide)(U-100) 100 unit/mL(3 mL) subcutaneous pen (Fiasp FlexTouch U-100 Insulin) peg 3350-electrolytes 236 240 ml PO Q10M 1 day #4,000 mL 01/31/22 gram-22.74 gram-6.74 gram-5.86 gram solution (Golytely) blood-glucose meter (FreeStyle #1 ea 02/28/22 Flash System kit) tiotropium bromide 18 mcg capsule 1 cap inhalation DAILY #30 caps 03/14/22 with inhalation device (Spiriva with HandiHaler) pen needle, diabetic 32 gauge x ##100 03/29/22 (UltiCare Pen Needle) pyridoxine (vitamin B6) 100 mg 100 mg PO DAILY #90 tabs 04/05/22 tablet levothyroxine 75 mcg tablet 75 mcg PO QAM #90 tabs 04/11/22 benzonatate 100 mg capsule 100 mg PO TID PRN cough #30 caps 05/10/22 ondansetron 4 mg disintegrating 4 mg PO Q8H PRN nausea and 05/16/22 tablet vomiting #10 tabs atorvastatin 80 mg tablet 80 mg PO BEDTIME #30 tabs 05/28/22 bisacodyl 5 mg tablet,delayed See Rx Instructions PO BEDTIME 30 06/11/22 release (Dulcolax (bisacodyl)) days #90 tabs docusate sodium 100 mg capsule 100 mg PO BID 30 days #60 caps 06/11/22 metoclopramide HCl 10 mg tablet 10 mg PO TID #90 tabs 06/11/22 (Reglan) omeprazole 20 mg capsule,delayed 20 mg PO BID@0630,1630 #60 caps 06/11/22 release plecanatide 3 mg tablet (Trulance) 3 mg PO DAILY 30 days #30 tabs 06/11/22 amoxicillin 875 mg-potassium 1 tab PO BID 7 days #14 tabs 06/18/22 clavulanate 125 mg tablet prednisone 10 mg tablet 40 mg PO DAILY 5 days #20 tabs 06/18/22 semaglutide 0.25 mg or 0.5 mg (2 0.5 mg (0.8 mL) subcut QWEEK #3 mL 07/02/22 mg/3 mL) subcutaneous pen injector (Ozempic) sennosides 8.6 mg tablet (senna) 17.2 mg PO BEDTIME constipation 07/04/22 #60 tabs blood sugar diagnostic (FreeStyle #100 ea 07/16/22 Lite Strips) lancets 28 gauge (FreeStyle #100 ea 07/16/22 Lancets) furosemide 40 mg tablet 40 mg PO DAILY 7 days #7 tabs 07/17/22 flash glucose scanning reader #1 ea 07/18/22 (FreeStyle Jalil 2 [place]) Lactobacil rhamnosus GG 10 billion 1 cap PO DAILY #30 caps 07/30/22 cell-inulin 200 mg sprinkle capsule ([facility] [email or web address] [facility]) dextrose 40 % oral gel (Glutose-15) 15 g PO DIRECTED for 08/13/22 hypoglycemia #112.5 grams Combivent Respimat 20 mcg-100 1 puff inhalation QID #4 grams 08/16/22 mcg/actuation solution for inhalation (ipratropium-albuterol) gabapentin 400 mg capsule 400 mg PO BEDTIME #30 caps 08/19/22 Allergies Allergy/AdvReac Type Severity Reaction Status Date / Time aspirin [Aspirin] Allergy Mild ITCHY Verified 08/22/22 17:12 THROAT azithromycin Allergy Unknown Unknown Verified 08/22/22 17:12 naproxen Allergy Unknown Unknown Verified 08/22/22 17:12 simvastatin Allergy Unknown Unknown Verified 08/22/22 17:12 Fish Containing Products Allergy Swelling Verified 08/22/22 17:12 onion [ONION] AdvReac Mild RED FACE Verified 08/22/22 17:12 [facility] Past Medical History Medical History Allergic rhinitis Anxiety and depression Bronchitis Chest pain Cocaine abuse COPD exacerbation Diabetes DVT (deep venous thrombosis) Fibromyalgia HTN (hypertension) Hypothyroidism Low vitamin D level Non-toxic multinodular goiter PTSD (post-traumatic stress disorder) Renal calculi Spondylosis of cervical region without myelopathy or radiculopathy UTI (urinary tract infection) Vertigo Surgical History H/O colonoscopy with polypectomy History of esophagogastroduodenoscopy (EGD) History of hysterectomy History of lithotripsy History of selective injection of anesthetic agent around lumbar nerve root Hx of right breast biopsy Family History Family History Father No problems noted. 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 This is a 26-[id number]-[id number] speaking female, with a history of HTN, diabetes, COPD, PTSD, GERD, and hypothyroidism, presenting to the emergency department with complaints of headache, elevated BP, dizziness, and shortness of breath x 4 days worsening today after taking dose of prednisone. VSS. Plan: labs, ekg, chest xray. Medical Decision Making Lab Data 08/22/22 17:34 08/22/22 17:34 Labs: Lab Results 08/22/22 08/22/22 08/22/22 Range/Units 17:34 17:34 17:34 WBC 6.0 (4.8-10.8) X10*3/uL RBC 4.35 (4.20-5.50) X10*6/uL Hgb 13.7 (12.0-16.0) g/dl Hct 39.9 (37.0-47.0) % MCV 91.7 (80.0-98.0) fL MCH 31.5 (27.0-33.0) pg MCHC 34.3 (31.0-35.0) g/dl RDW 13.2 (11.0-16.0) % Plt Count 312 (160-400) X10*3/uL MPV 9.4 (9.4-12.3) fL Immature Gran % (Auto) 0.2 (0.0-0.4) % Neut % (Auto) 75.2 H (45-73) % Lymph % (Auto) 21.1 (20-40) % Stark % (Auto) 3.3 (2-11) % Eos % (Auto) 0.0 (0-4) % Baso % (Auto) 0.2 (0-2) % Lymph # (Auto) 1.3 (1.2-4.9) X10*3/uL Stark # (Auto) 0.2 (0.1-1.2) X10*3/uL Eos # (Auto) 0.0 (0.0-0.4) X10*3/uL Baso # (Auto) 0.0 (0.0-0.2) X10*3/uL Abs Immat Gran (auto) 0.01 (0.00-0.03) X10*3/uL Absolute Neuts (auto) 4.5 (2.0-8.3) x10*3/uL Absolute Nucleated RBC 0.000 (0.0-0.012) X10*3/uL Nucleated RBC % (auto) 0.0 (0.0-0.2) /100WBC Sodium 140 (135-145) mmol/L Potassium 4.5 (3.3-5.1) mmol/L Chloride 110 H (96-108) mmol/L Carbon Dioxide 20 L (22-29) mmol/L Anion Gap 15 (12-20) BUN 17 H (9-16) mg/dL Creatinine 0.86 (0.5-1.4) mg/dL Estim Creat Clear Calc 72.9 Estimated GFR > 60 Random Glucose 148 H (60-115) mg/dL Calcium 10.2 D (8.4-10.2) mg/dL Magnesium 2.2 (1.6-2.6) mg/dL Troponin I High Sens < 2.7 (<3.5-17.0) ng/L COVID-19 (DONALD) (Negative) COVID-19 Clin Com 08/22/22 Range/Units 17:34 WBC (4.8-10.8) X10*3/uL RBC (4.20-5.50) X10*6/uL Hgb (12.0-16.0) g/dl Hct (37.0-47.0) % MCV (80.0-98.0) fL MCH (27.0-33.0) pg MCHC (31.0-35.0) g/dl RDW (11.0-16.0) % Plt Count (160-400) X10*3/uL MPV (9.4-12.3) fL Immature Gran % (Auto) (0.0-0.4) % Neut % (Auto) (45-73) % Lymph % (Auto) (20-40) % Stark % (Auto) (2-11) % Eos % (Auto) (0-4) % Baso % (Auto) (0-2) % Lymph # (Auto) (1.2-4.9) X10*3/uL Stark # (Auto) (0.1-1.2) X10*3/uL Eos # (Auto) (0.0-0.4) X10*3/uL Baso # (Auto) (0.0-0.2) X10*3/uL Abs Immat Gran (auto) (0.00-0.03) X10*3/uL Absolute Neuts (auto) (2.0-8.3) x10*3/uL Absolute Nucleated RBC (0.0-0.012) X10*3/uL Nucleated RBC % (auto) (0.0-0.2) /100WBC Sodium (135-145) mmol/L Potassium (3.3-5.1) mmol/L Chloride (96-108) mmol/L Carbon Dioxide (22-29) mmol/L Anion Gap (12-20) BUN (9-16) mg/dL Creatinine (0.5-1.4) mg/dL Estim Creat Clear Calc Estimated GFR Random Glucose (60-115) mg/dL Calcium (8.4-10.2) mg/dL Magnesium (1.6-2.6) mg/dL Troponin I High Sens (<3.5-17.0) ng/L COVID-19 (DONALD) Negative (Negative) COVID-19 Clin Com See Note Discharge Plan Discharge Prescriptions: No Action Xolair 150 mg/mL syringe 300 mg subcut Q2W Qty: 4 11RF Fiasp FlexTouch U-100 Insulin 100 unit/mL (3 mL) insulin pen 6 unit subcut TID Qty: 15 5RF (DME) blood-glucose meter [FreeStyle Flash System] Kit See Rx Instructions .Route Qty: 1 0RF Rx Instructions: As directed Spiriva with HandiHaler 18 mcg capsule, w/inhalation device 1 cap inhalation DAILY Qty: 30 6RF (DME) pen needle, diabetic [UltiCare Pen Needle] 32 gauge x 5/32 needle See Rx Instructions .ROUTE .COMPLEX Qty: 100 5RF Dose Instruction: USE FOUR TIMES DAILY Rx Instructions: USE FOUR TIMES DAILY levothyroxine 75 mcg tablet 75 mcg PO QAM Qty: 90 4RF atorvastatin 80 mg tablet 80 mg PO BEDTIME Qty: 30 4RF prednisone 10 mg tablet 40 mg PO DAILY 5 Days Qty: 20 0RF amoxicillin-pot clavulanate 875-125 mg tablet 1 tab PO BID 7 Days Qty: 14 0RF Ozempic 0.25 mg or 0.5 mg (2 mg/3 mL) pen injector 0.5 mg subcut QWEEK Qty: 3 5RF sennosides [senna] 8.6 mg tablet 17.2 mg PO BEDTIME Qty: 60 1RF (DME) FreeStyle Lite Strips Strip See Rx Instructions .Route Qty: 100 5RF Rx Instructions: Check blood sugars 4x a day. (DME) lancets [FreeStyle Lancets] 28 gauge misc See Rx Instructions .Route Qty: 100 5RF Rx Instructions: check blood sugars 3 times a day (DME) FreeStyle Jalil 2 [place] [facility] See Rx Instructions .Route Qty: 1 0RF Rx Instructions: As directed [facility] 10 billion cell -200 mg capsule, sprinkle 1 cap PO DAILY Qty: 30 6RF dextrose [Glutose-15] 40 % gel 15 g PO DIRECTED Qty: 112.5 5RF Combivent Respimat 20-100 mcg/actuation mist 1 puff inhalation QID Qty: 4 0RF gabapentin 400 mg capsule 400 mg PO BEDTIME Qty: 30 4RF albuterol sulfate 90 mcg/actuation HFA aerosol inhaler 2 puff inhalation Q4-6H PRN (Reason: shortness of breath or wheezing) Qty: 6.7 0RF ipratropium-albuterol 0.5 mg-3 mg(2.5 mg base)/3 mL Solution For Nebulization 3 ml INHALATION Q6H PRN (Reason: Respiratory Distress) Certavite-Antioxidant 18-400 mg-mcg Tablet 1 tab PO DAILY ondansetron 4 mg tablet,disintegrating 4 mg PO Q8H PRN (Reason: nausea and vomiting) Qty: 10 0RF benzonatate 100 mg capsule 100 mg PO TID PRN (Reason: cough) Qty: 30 0RF montelukast 10 mg tablet 10 mg PO BEDTIME clonazepam [Klonopin] 1 mg tablet 1 mg PO DAILY Rx Instructions: administer 30 minutes before bedtime (DME) Knee [place]ace [facility] See Rx Instructions .ROUTE .MEDSUPPLY Qty: 2 0RF Rx Instructions: As directed zolpidem 10 mg tablet 10 mg PO BEDTIME PRN (Reason: Insomnia) risperidone 0.5 mg tablet 0.5 mg PO BID amlodipine 10 mg tablet 10 mg PO BEDTIME calcium carbonate-vitamin D3 600 mg(1,500mg) -400 unit tablet 1 tab PO BID potassium chloride 20 mEq tablet,ER particles/crystals 20 meq PO BID cetirizine 10 mg tablet 10 mg PO BEDTIME fluticasone propion-salmeterol 250-50 mcg/dose blister with device 1 ea inhalation BID enalapril maleate 20 mg tablet 20 mg PO DAILY pyridoxine (vitamin B6) 100 mg tablet 100 mg PO DAILY Qty: 90 3RF acetaminophen 325 mg tablet 325 mg PO PRN (Reason: pain) fluoride (sodium) [SF 5000 Plus] 1.1 % cream PO buspirone 7.5 mg tablet 7.5 mg PO BID tramadol 50 mg tablet 50 mg PO BID PRN emtricitabine-tenofovir (TDF) 200-300 mg tablet 1 tab PO DAILY peg 3350-electrolytes [Golytely] 236-22.74-6.74 -5.86 gram recon soln 240 ml PO Q10M 1 Days Qty: 4000 0RF Rx Instructions: until fecal effluent is clear; do not exceed a total volume of 2,000 mL bisacodyl [Dulcolax (bisacodyl)] 5 mg tablet,delayed release (DR/EC) See Rx Instructions PO BEDTIME 30 Days Qty: 90 6RF Rx Instructions: 2 tabs qhs and 1 qam orally bedtime; docusate sodium 100 mg capsule 100 mg PO BID 30 Days Qty: 60 6RF metoclopramide HCl [Reglan] 10 mg tablet 10 mg PO TID Qty: 90 6RF omeprazole 20 mg capsule,delayed release(DR/EC) 20 mg PO BID@0630,1630 Qty: 60 6RF Trulance 3 mg tablet 3 mg PO DAILY 30 Days Qty: 30 6RF Rx Instructions: Take one tablet by mouth once a day naloxone 4 mg/actuation spray,non-aerosol 0 spray intranasal diclofenac sodium 1 % gel topical Ear Drops (carbamide peroxide) 6.5 % drops 0 drp otic (ears) furosemide 40 mg tablet 40 mg PO DAILY 7 Days Qty: 7 0RF
[2022-08-22 17:56] LABS: Anion Gap 15 (12-20); Blood Urea Nitrogen 17 mg/dL (9-16); Calcium 10.2 mg/dL (8.4-10.2); Carbon Dioxide 20 mmol/L (22-29); Chloride 110 mmol/L (96-108); Creatinine Clr Calc Pharmacy 72.9; Estimated Glomerular Filt Rate > 60; Glucose Random 148 mg/dL (60-115); Magnesium 2.2 mg/dL (1.6-2.6); Potassium 4.5 mmol/L (3.3-5.1); Sodium 140 mmol/L (135-145)
[2022-08-22 20:01] VITALS: BP 120/71; PULSE 79; RESP 16; TEMP 36.7; O2SAT 93
--- NOTE | 2022-08-22 20:53 | PC.NURSE ---
Pt A&Ox4, reports taking BP at home and feeling dizziness, room spinning, and headache x today. Pt denies CP, and palpitations. Reports some SOB, speaking in full sentences, lung sounds wheezy, RR 18, O2 sat 97% on RA.
--- NOTE | 2022-08-22 21:30 | PC.NURSE ---
Pt was not in room of time of provider going in to see Pt.
== END 2022-08-22 21:33 | disposition left against medical advice (07) ==
PROVIDERS: Physician Assistant Medical; Emergency Provider Internal Medicine; PCP Nurse Practitioner Primary Care
DX: I10 Essential (primary) hypertension (principal); R42 Dizziness and giddiness; R51.9 Headache, unspecified; R06.02 Shortness of breath; J45.909 Unspecified asthma, uncomplicated
CPT/HCPCS: 36415; 71046; 80048; 83735; 84484; 85025; 87635; 93005; 99283; 99284

== ENCOUNTER 2022-08-23 10:56 | Outpatient (REF) | payer OTHER, SELFPAY | END 2022-08-23 10:57 | disposition home or self-care (01) | LOC: HO.MDS 10:56 | PROVIDERS: Visit Provider Internal Medicine Pulmonary Disease | DX: J45.50 Severe persistent asthma, uncomplicated (principal) | CPT/HCPCS: 96372 ==

== ENCOUNTER 2022-08-29 09:21 | Outpatient (AMB) | payer OTHER, SELFPAY ==
[2022-08-29 09:24] VITALS: BP 118/70; PULSE 81; O2SAT 96; BMI 35.8
--- NOTE | 2022-08-29 09:24 | A.OFFVIS_ITS ---
Intake Vital Signs 08/29/22 09:24 Height 5 ft 3 in Weight 202 lb BMI 35.8 BP 118/70 Pulse 81 Pulse Oximetry (%) 96 Intake Visit Reasons: Asthma Intake Note: pt was last prescribed 7 day course of lasix. she needs refill on combivent. pt is req to have her lungs checked to see if there ok and she does state lasix helped her swelling go down. Allergies aspirin [Aspirin] Allergy (Mild, Verified 08/29/22 09:31) ITCHY THROAT azithromycin Allergy (Unknown, Verified 08/29/22 09:31) Unknown naproxen Allergy (Unknown, Verified 08/29/22 09:31) Unknown simvastatin Allergy (Unknown, Verified 08/29/22 09:31) Unknown Fish Containing Products Allergy (Verified 08/29/22 09:31) Swelling onion [ONION] Adverse Reaction (Mild, Verified 08/29/22 09:31) RED FACE HPI Asthma HPI Details 62-year-old lady, former 30+ pack-year smoker, quit 2014 followed for severe persistent allergic asthma/COPD overlap syndrome and environmental allergies. She continues on Wixela, Spiriva, albuterol MDI, and Xolair with good baseline symptomatic control of her symptoms at the baseline.? After the last office visit she has been treated with a brief diuretic course with significant improvement in lower extremity edema and dyspnea on exertion. Patient denies any recent exacerbations. [facility] Medical History Allergic rhinitis Anxiety and depression Bronchitis Chest pain Cocaine abuse COPD exacerbation Diabetes DVT (deep venous thrombosis) Fibromyalgia HTN (hypertension) Hypothyroidism Low vitamin D level Non-toxic multinodular goiter PTSD (post-traumatic stress disorder) Renal calculi Spondylosis of cervical region without myelopathy or radiculopathy UTI (urinary tract infection) Vertigo Surgical History H/O colonoscopy with polypectomy History of esophagogastroduodenoscopy (EGD) History of hysterectomy History of lithotripsy History of selective injection of anesthetic agent around lumbar nerve root Hx of right breast biopsy Family History Father No problems noted. 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 Female Reproductive History Menstrual Age of Menarche: 10 Review of Systems Const Denies daytime sleepiness, Denies excessive sweating, Denies fatigue, Denies fever(s), Denies lethargy, Denies malaise, Denies night sweats, Denies snoring and Denies weight loss Eyes Denies blurry vision and Denies itchy eyes ENT Denies nasal congestion, Denies post nasal drip, Denies sinus pain, Denies sinus pressure and Denies other ( Thrush) Card Denies chest pain, Denies pedal edema, Denies dyspnea, Denies orthopnea and Denies paroxysmal nocturnal dyspnea Resp Denies cough, Denies hemoptysis, Denies excessive phlegm production, Denies dyspnea, Denies snoring and Denies wheezing GI Denies abdominal pain and Denies heartburn Musc Denies myalgias, Denies arthralgias and Denies joint swelling Skin/Breast Denies rash Neuro Denies memory loss and Denies seizure-like activity Psych Denies abnormal sleep pattern, Denies anxiety and Denies memory loss Endo Denies excessive sweating, Denies fatigue and Denies heat intolerance Bruno/Lymph Denies easy bruising Aller/Immun Denies itchy eyes, Denies seasonal rhinorrhea and Denies wheezing Physical Exam Vital Signs: Last Vital Signs Pulse 81 08/29/22 09:24 BP 118/70 08/29/22 09:24 Pulse Ox 96 08/29/22 09:24 BMI result Body Mass Index 35.8 Const General: no acute distress and alert Nutritional Appearance: not obese Orientation/consciousness: Other orientation findings ( oriented) HEENT Head: Yes atraumatic Eyes General: appearance normal, both eyes and all related structures Sclerae: sclerae normal EOM: EOMs intact bilaterally Neck Neck: Yes supple Lymphatic: no lymphadenopathy noted Resp Effort & Inspection: normal respiratory effort and no use of accessory muscles Auscultation: clear to auscultation bilaterally Cardio Rate: regular rate Rhythm: regular rhythm Heart sounds: no gallops, no murmurs and no rubs Skin General skin exam: other ( warm) Extrem General: No clubbing, No cyanosis and No edema Assessment & Plan Assessment & Plan (1) Severe persistent asthma: Code(s): J45.50 - Severe persistent asthma, uncomplicated Plan: Well controlled on current regimen of Xolair, Spiriva, Combivent, Wixela, and albuterol MDI. Continue current regimen. (2) Environmental allergies: Code(s): Z91.09 - Other allergy status, other than to drugs and biological substances Plan: Well controlled on Xolair. Continue current regimen. (3) MOCK (dyspnea on exertion): Code(s): R06.09 - Other forms of dyspnea Plan: Lower extremity edema, orthopnea, and dyspnea on exertion improved significantly after a diuretic regimen. Patient does not require an additional diuretic at this time. Will continue to monitor clinically. Coding Level of Care Code Est Pt Level 4 (17436) Diagnoses Severe persistent asthma J45.50 Environmental allergies Z91.09 MOCK (dyspnea on exertion) R06.09
== END 2022-08-29 09:49 | disposition home or self-care (01) ==
PROVIDERS: PCP Nurse Practitioner Primary Care; Visit Provider Internal Medicine Pulmonary Disease
DX: J45.50 Severe persistent asthma, uncomplicated (principal); Z91.09 Other allergy status, other than to drugs and biological substances; R06.09 Other forms of dyspnea
CPT/HCPCS: 99214

== ENCOUNTER → 2022-08-29 09:21 | Outpatient (BNVA) | payer OTHER, SELFPAY | PROVIDERS: PCP Nurse Practitioner Primary Care; Visit Provider Internal Medicine Pulmonary Disease | DX: J45.50 Severe persistent asthma, uncomplicated (principal); R06.09 Other forms of dyspnea; Z79.899 Other long term (current) drug therapy; Z91.09 Other allergy status, other than to drugs and biological substances | CPT/HCPCS: 99212 ==

== ENCOUNTER 2022-08-29 12:30 | Outpatient (REF) | payer OTHER, SELFPAY ==
[2022-08-29 13:57] LABS: Influenza A PCR NEGATIVE (Negative); Influenza B PCR NEGATIVE (Negative); Resp Syncy Virus RNA Qual PCR NEGATIVE (Negative); SARS COV2 PCR INHOUSE NEGATIVE (Negative)
== END 2022-08-29 12:31 | disposition home or self-care (01) ==
LOC: HO.HHCL 12:30
PROVIDERS: Visit Provider Internal Medicine
DX: Z20.822 Contact with and (suspected) exposure to COVID-19 (principal); J45.50 Severe persistent asthma, uncomplicated; R06.09 Other forms of dyspnea; Z91.09 Other allergy status, other than to drugs and biological substances
CPT/HCPCS: 0241U

== ENCOUNTER 2022-09-04 10:58 | Outpatient (AMB) | payer OTHER, SELFPAY ==
--- NOTE | 2022-09-04 11:04 | A.OFFVIS_ITS ---
Intake Vital Signs 09/04/22 11:06 Height 5 ft 3 in Weight 204 lb 9.423 oz BMI 36.2 BP 112/82 Blood Pressure Location Rt brachial Position Sitting Pulse 85 Pulse Source Pulse Oximeter Intake Visit Reasons: f/u Type 2 DM Intake Note: Patient present today to follow up on Type 2 Diabetes Mellitus. 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 Random Glucose: 144 mg/dl HgA1C: 7.7% Document Imaging Specialist Required: Yes Document Imaging Specialist Language: Slat Basket Top Maker Name: Jelena, Medical Staff Information Interpreted: non-clinical & clinical Accompanied by: Self / Same As Patient Allergies aspirin [Aspirin] Allergy (Mild, Verified 09/04/22 11:09) ITCHY THROAT azithromycin Allergy (Unknown, Verified 09/04/22 11:09) Unknown naproxen Allergy (Unknown, Verified 09/04/22 11:09) Unknown simvastatin Allergy (Unknown, Verified 09/04/22 11:09) Unknown Fish Containing Products Allergy (Verified 09/04/22 11:09) Swelling onion [ONION] Adverse Reaction (Mild, Verified 09/04/22 11:09) RED FACE HPI HPI Comments History of Present Illness Details ?62 yo female today for fup visit, for diiabetes management and hypothyroidism. She started a predisone taper for bronchitis She is off Trulicity 0.75 mg Qwkly. Because of sour taste in the mouth. She is on Fiasp 4 units TID Ozempic 0.5 mg Qwkly Review Jalil download shows average glucose to be 165 with sensor active 79% of the time. GMI is 7.3%. 75% range with 24% hyperglycemia and no hypoglycemia once a wk after breakfast ? She has PMH od GERD, asthma, hypertension, nephrolithiasis, Jerri's thyroiditis. ? She has DM type diagnosed 2016. ? 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 Non toxic multinodular goiter.with subcm nodules ? She is Currently on LT4 75 mcg , 100 % compliance , she has good method of administration. ? She has not known no retinopathy, no nephropathy, no neuropathy, no CVA, CAD, PVD . ? Last ophthalmology evaluation:saw optho this yr off prednisone for asthma [facility] Medical History Allergic rhinitis Anxiety and depression Bronchitis Chest pain Cocaine abuse COPD exacerbation Diabetes DVT (deep venous thrombosis) Fibromyalgia HTN (hypertension) Hypothyroidism Low vitamin D level Non-toxic multinodular goiter PTSD (post-traumatic stress disorder) Renal calculi Spondylosis of cervical region without myelopathy or radiculopathy UTI (urinary tract infection) Vertigo Surgical History H/O colonoscopy with polypectomy History of esophagogastroduodenoscopy (EGD) History of hysterectomy History of lithotripsy History of selective injection of anesthetic agent around lumbar nerve root Hx of right breast biopsy Family History Father No problems noted. 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 Neck exam shows nl thyroid about 15 gms. Lungs CTA. Heart S1 S2 Reg R/R -MRG. Abdominal exam benign . Muscle strength 5/5 proximally. No hirsuitism present. No striae present. Skin exam without lesions. Const Other: Extrem Other: Visual exam of foot performed. No ulcerations or open lesions. No onchomycosis, no callouses. Sensation intact to monofilament exam. Vibratory sensation sensed 10 seconds in right, 10 seconds in left with 128 Hz tuning fork. Results AMB Hemoglobin A1c AMB Hemoglobin A1c 7.7 % Last Edit by LIZET Francis on 09/04/22 11:34 Results Reviewed Results Reviewed: 09/04/22 11:15 Glucose, Whole Blood Routine Laboratory Last Values Glucose (Clinic) 144 mg/dL (60-115) H 09/04/22 11:15 Hgb A1c (Clinic) 7.7 % (4.0-6.0) H 09/04/22 11:33 Assessment & Plan Assessment & Plan (1) Hypothyroidism: Comment: Clinically and biochemically euthyroid on 75 ug of L-T4. Continue present management Code(s): E03.9 - Hypothyroidism, unspecified Plan: Clinically and euthyroid on 75 mcg levothyroxine . Will check TSH and free T4 adjust levothyroxine accordingly (2) Non-toxic multinodular goiter: Code(s): E04.2 - Nontoxic multinodular goiter Plan: subcm nodules benign appearing. No need for further US (3) Type 2 diabetes mellitus with hyperglycemia: Code(s): E11.65 - Type 2 diabetes mellitus with hyperglycemia Qualifiers: Diabetes mellitus medical terminologist insulin use: without medical terminologist use Qualified Code(s): E11.65 - Type 2 diabetes mellitus with hyperglycemia Plan: This is a 61 yo female with a hx of Type 2 DM being treated with short- acting insulin and Ozempic with good improved glycemic control and no known microvascular or macrovascular complications The plan is to increase the Ozempic to 1 mg Q weekly. Patient was told to report any hypoglycemia or to report of steroid was be re-initiated for asthma any point Patient will follow up with wellness educator Orders: Orders Free T4 (Free Thyroxine) Today E03.9 - Hypothyroidism, unspecified, E04.2 - Nontoxic multinodular goiter Thyroid Stimulating Hormone Today E03.9 - Hypothyroidism, unspecified, E04.2 - Nontoxic multinodular goiter AMB Hemoglobin A1c 09/04/22 E11.65 - Type 2 diabetes mellitus with hyperglycemia Medications: New semaglutide (Ozempic) 1 mg (0.75 mL) subcut QWEEK 3 mL 4RF Discontinued semaglutide (Ozempic) Discontinued Reason: Doctor's Order 0.5 mg (0.8 mL) subcut QWEEK 3 mL 5RF Coding Level of Care Code Est Pt Level 4 (70030) Diagnoses Hypothyroidism E03.9 Non-toxic multinodular goiter E04.2 Type 2 diabetes mellitus with hyperglycemia E11.65 Diabetes mellitus medical terminologist insulin use: without fci use
[2022-09-04 11:06] VITALS: BP 112/82; PULSE 85; BMI 36.2
[2022-09-04 11:20] LABS: Glucose, Whole Blood 144 mg/dL (60-115)
== END 2022-09-04 11:33 | disposition home or self-care (01) ==
PROVIDERS: PCP Nurse Practitioner Primary Care; Visit Provider Internal Medicine Endocrinology, Diabetes & Metabolism
DX: E03.9 Hypothyroidism, unspecified (principal); E04.2 Nontoxic multinodular goiter; E11.65 Type 2 diabetes mellitus with hyperglycemia
CPT/HCPCS: 99214

== ENCOUNTER → 2022-09-04 10:58 | Outpatient (BNVA) | payer OTHER, SELFPAY | PROVIDERS: Visit Provider Internal Medicine Endocrinology, Diabetes & Metabolism | DX: E11.65 Type 2 diabetes mellitus with hyperglycemia (principal); E03.9 Hypothyroidism, unspecified; E04.2 Nontoxic multinodular goiter | CPT/HCPCS: 82947; 83036; 99212 ==

== ENCOUNTER 2022-09-05 08:24 | Outpatient (REF) | payer OTHER, SELFPAY ==
[2022-09-05 11:15] LABS: Cholesterol 163 mg/dL; HDL Cholesterol 57 mg/dL; LDL Cholesterol Calculated 88 mg/dl; Triglycerides 92 mg/dL
[2022-09-05 11:35] LABS: Thyroid Stimulating Hormone 2.25 uIU/mL (0.32-4.0)
== END 2022-09-05 08:25 | disposition home or self-care (01) ==
LOC: HO.LAB 08:24
PROVIDERS: PCP Nurse Practitioner Primary Care; Visit Provider Internal Medicine Endocrinology, Diabetes & Metabolism
DX: E03.9 Hypothyroidism, unspecified (principal); E04.2 Nontoxic multinodular goiter; E11.65 Type 2 diabetes mellitus with hyperglycemia
CPT/HCPCS: 36415; 80061; 84439; 84443

== ENCOUNTER 2022-09-06 09:03 | Outpatient (REF) | payer OTHER, SELFPAY | END 2022-09-06 09:04 | disposition home or self-care (01) | LOC: HO.MDS 09:03 | PROVIDERS: Visit Provider Internal Medicine Pulmonary Disease | DX: J45.50 Severe persistent asthma, uncomplicated (principal) | CPT/HCPCS: 96372; J2357 ==

== ENCOUNTER 2022-09-10 14:22 | Outpatient (AMB) | payer OTHER, SELFPAY ==
--- NOTE | 2022-09-10 14:24 | MHC.OFFVIS ---
Intake Vital Signs 09/10/22 14:31 Height 5 ft 3 in Weight 202 lb BMI 35.8 BP 132/79 Blood Pressure Location Lt brachial Position Sitting Pulse 87 Intake Visit Reasons: 3 month follow up Intake Note: Patient presents to in office visit today in 3 months follow up. CC: Patient states she has been having RUQ abdominal pain and constipation. Denies other GI symptoms. Lathe Puller Required: Yes Lathe Puller Language: Manager Book Name: Lanette munoz final cigar and box examiner Accompanied by: Self / Same As Patient Allergies aspirin [Aspirin] Allergy (Mild, Verified 09/10/22 14:29) ITCHY THROAT azithromycin Allergy (Unknown, Verified 09/10/22 14:29) Unknown naproxen Allergy (Unknown, Verified 09/10/22 14:29) Unknown simvastatin Allergy (Unknown, Verified 09/10/22 14:29) Unknown Fish Containing Products Allergy (Verified 09/10/22 14:29) Swelling onion [ONION] Adverse Reaction (Mild, Verified 09/10/22 14:29) RED FACE HPI 3 month follow up HPI Details Assessment & Plan (1) Chronic idiopathic constipation: ?Code(s): K59.04 - Chronic idiopathic constipation ?Plan: SAUDI ARABIAN #[id number] Betsy She is doing well and has been moving her bowels well recently. She is tolerating the reglan w/o a/e. She also is using Trulance, senna, colace and bisacodyl for her very severe CIC. She will be due for repeat US and liver panel in 3 mos. Continues on omeprazole bid with good gerd control.? At this time she is quite satisfied with her GI regimen saying ?you of help me so much with the medication!? ROV 3 mos. (2) GERD (gastroesophageal reflux disease): ?Code(s): K21.9 - Gastro-esophageal reflux disease without esophagitis (3) OKEEFE (nonalcoholic steatohepatitis): ?Comment: LABS;? 07/2011 LIver panel is totally normal, hemoglobin A1c covers around 7, alpha fetoprotein tumor marker at baseline is 1.6, 05/2018 autoimmune workup is negative, ferritin is normal at 49, she is immune to hepatitis a B and negative for hepatitis C. CURRENT LABS 12/27/2210/10/22 ?11:5411:[id number] Total Bilirubin 0.3 Direct Bilirubin < 0.2 AST 18 ALT 16 Alkaline Phosphatase 98 Alpha Fetoprotein 2.1 * US ABD? 04/19/21 IMPRESSION: Unremarkable liver, gallbladder, CBD and right kidney. ? Visualized head and body of the pancreas is unremarkable. ?Code(s): K75.81 - Nonalcoholic steatohepatitis (OKEEFE) ? ? ? Medications: Refilled bisacodyl (Dulcola x (bisacodyl)) ?2 tabs qhs and 1 qam orally bedtim e;? 30 days 90 tab s 6RF K75.81 - Nonalcoho lic steatohepatiti s (OKEEFE) ? docusate sodium 100 mg? PO BID 30 days 60 caps 6RF K59.04 - Chronic i diopathic constipa tion ? metoclopramide HCl (Reglan) 10 mg? PO TID 90 t abs 6RF ? ? omeprazole 20 mg? PO BID@0630 ,1630 60 caps 6RF D ? ? plecanatide (Trula nce) ?? Take one t ablet by mouth onc e a day 3 mg? PO DAILY 30 days 30 tabs 6RF ? ? TODAY'S VISIT SAUDI ARABIAN #Lanette Live She had been doing well for a while, but then she ate white rice and again developed RUQ and CIC. She continues on the Trulance and senna, but has stopped taking the reglan - likely she just forgot about it as she is inconsistent in compliance at times. This is likely c/t her CIC. We will order a bowel prep to get her going and then re evaluate on the reglan. She continues on her omeprazole with good control of her GERD twice a day. She is agreeable for going for her liver testing and US. ROV 6 weeks to kyle muir. 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 Female Reproductive History Menstrual Age of Menarche: 10 Review of Systems Const Denies fatigue, Denies fever(s), Denies night sweats, Denies poor appetite and Denies weight loss ENT Reports Normal hearing present, Denies dental pain, Denies dysphagia, Denies hearing loss, Denies mouth pain, Denies odynophagia, Denies throat swelling, Denies tongue swelling and Reports other (Dentition adequate) Card Reports no additional complaints Resp Reports no additional complaints GI Reports abdominal pain, Denies melena, Denies bloating, Denies hematochezia, Reports constipation, Denies GI cramping, Denies dysphagia, Denies excessive flatus, Denies early satiety, Reports heartburn, Denies diarrhea, Denies nausea, Denies odynophagia, Denies vomiting and Denies hematemesis Skin/Breast Denies pruritus, Denies lesions, Denies rash and Denies jaundice Neuro Reports Normal hearing present and Denies Abnormal speech present Endo Denies fatigue Aller/Immun Denies throat swelling and Denies tongue swelling Physical Exam Vital Signs: Last Vital Signs Pulse 87 09/10/22 14:31 BP 132/79 09/10/22 14:31 BMI result Body Mass Index 35.8 Const General: cooperative, no acute distress, well developed and well groomed Nutritional Appearance: well nourished and obese morbidly obese Orientation/consciousness: oriented to person, oriented to place and oriented to time Limitations: language barrier HEENT Head: Yes normocephalic and Yes atraumatic Eyes General: appearance normal, both eyes and all related structures Pupils: Equal, round and reactive pupils present Neck Neck: Yes normal visual inspection and Yes no lymphadenopathy Thyroid: Thyroid normal Resp Effort & Inspection: normal respiratory effort and able to speak in complete sentences Auscultation: clear to auscultation bilaterally Cardio Rate: regular rate Rhythm: regular rhythm Heart sounds: Normal, physiologic split S2 sound present Peripheral pulses: radial pulses present and posterior tibial pulses present GI Inspection: No distended, Yes Abdominal panniculus present and Yes obesity Palpation (GI): Soft to palpation, nontender, no guarding, not rigid and No hepatosplenomegaly present Percussion: Yes normal to percussion Auscultation: normal bowel sounds Rectal Exam - Female: deferred Skin General skin exam: no rashes or lesions noted, turgor normal, skin not dry, no jaundice, No spider nevi and no striae Rashes: no rashes Nails: normal Neuro General: oriented to person, oriented to place and oriented to time Cranial nerves: Yes Equal, round and reactive pupils present and Yes Normal hearing present Speech: No Abnormal speech present Extrem General: Yes normal to inspection, No clubbing, No cyanosis and No edema Psych Appearance: grossly normal and well kempt Mental Status: mental status grossly normal Speech and movement: Normal speech and movement present Affect: normal affect Attitude: cooperative Thought process: Normal thought process present and not confabulating Thought content: Normal thought content present Insight: Limited insight present (Psych) Judgement: Limited judgement present (Psych) Assessment & Plan Assessment & Plan (1) Chronic idiopathic constipation: Code(s): K59.04 - Chronic idiopathic constipation Plan: SAUDI ARABIAN #Lanette Live She had been doing well for a while, but then she ate white rice and again developed RUQ and CIC. She continues on the Trulance and senna, but has stopped taking the reglan - likely she just forgot about it as she is inconsistent in compliance at times. This is likely c/t her CIC. We will order a bowel prep to get her going and then re evaluate on the reglan. She continues on her omeprazole with good control of her GERD twice a day. She is agreeable for going for her liver testing and US. ROV 6 weeks to eval all. (2) GERD (gastroesophageal reflux disease): Code(s): K21.9 - Gastro-esophageal reflux disease without esophagitis (3) OKEEFE (nonalcoholic steatohepatitis): Comment: LABS; 07/2011 LIver panel is totally normal, hemoglobin A1c covers around 7, alpha fetoprotein tumor marker at baseline is 1.6, 05/2018 autoimmune workup is negative, ferritin is normal at 49, she is immune to hepatitis a B and negative for hepatitis C. CURRENT LABS 12/27/2210/10/22 11:5411:54 Total Bilirubin 0.3 Direct Bilirubin < 0.2 AST 18 ALT 16 Alkaline Phosphatase 98 Alpha Fetoprotein 2.1 * US ABD 03/14/22 IMPRESSION: 1. Diffusely echogenic liver without focal lesion. Mild hepatomegaly 2. Visualized gallbladder, CBD, right kidney and visualized pancreas are unremarkable. Dictated By:Saad Howell MDSigned By:<Electronically signed by Saad Howell MD in OV>03/14/22 Code(s): K75.81 - Nonalcoholic steatohepatitis (OKEEFE) (4) Small bowel motility disorder: Code(s): K59.9 - Functional intestinal disorder, unspecified Orders: Orders Alpha Fetoprotein Today K75.81 - Nonalcoholic steatohepatitis (OKEEFE) Liver Panel Today K75.81 - Nonalcoholic steatohepatitis (OKEEFE) US abdomen complete Today K75.81 - Nonalcoholic steatohepatitis (OKEEFE) Medications: New peg 3350-electrolytes 236-22.74-6.74 -5.86 gram (Golytely) until fecal effluent is clear; do not exceed a total volume of 2,000 mL 240 mL PO Q10M 1 day 4,000 mL 0RF Z12.11 - Encounter for screening for malignant neoplasm of colon metoclopramide HCl (Reglan) 10 mg PO .tidac 90 tabs 6RF K59.9 - Functional intestinal disorder, unspecified Refilled plecanatide (Trulance) Take one tablet by mouth once a day 3 mg PO DAILY 30 days 30 tabs 6RF sennosides (senna) 17.2 mg (2 x 8.6 mg) PO BEDTIME 60 tabs 6RF constipation omeprazole 20 mg PO BID@0630,1630 60 caps 6RF Coding Level of Care Code Est Pt Level 3 (67662) Diagnoses Chronic idiopathic constipation K59.04 GERD (gastroesophageal reflux disease) K21.9 OKEEFE (nonalcoholic steatohepatitis) K75.81 Small bowel motility disorder K59.9
[2022-09-10 14:31] VITALS: BP 132/79; PULSE 87; BMI 35.8
== END 2022-09-10 14:50 | disposition home or self-care (01) ==
PROVIDERS: Visit Provider Nurse Practitioner
DX: K59.04 Chronic idiopathic constipation (principal); K21.9 Gastro-esophageal reflux disease without esophagitis; K75.81 Nonalcoholic steatohepatitis (NASH); K59.9 Functional intestinal disorder, unspecified
CPT/HCPCS: 99213

== ENCOUNTER 2022-09-10 14:22 | Outpatient (REF) | payer OTHER, SELFPAY ==
[2022-09-10 16:49] LABS: Alanine Aminotransferase 31 U/L (0-31); Albumin Level 4.2 g/dL (3.5-5.0); Alkaline Phosphatase 93 U/L (39-117); Aspartate Amino Transferase 27 U/L (5-31); Bilirubin Direct 0.1 mg/dL (0.0-0.5); Bilirubin Total 0.3 mg/dL (0.0-1.0); Total Protein 7.3 g/dL (6.5-8.0)
[2022-09-12 13:29] LABS: Alpha Fetoprotein 2.1 ng/mL
== END 2022-09-10 14:23 | disposition home or self-care (01) ==
LOC: HO.LAB 14:22
PROVIDERS: PCP Nurse Practitioner Primary Care; Visit Provider Nurse Practitioner
DX: K75.81 Nonalcoholic steatohepatitis (NASH) (principal); K59.04 Chronic idiopathic constipation; K21.9 Gastro-esophageal reflux disease without esophagitis; K59.9 Functional intestinal disorder, unspecified
CPT/HCPCS: 36415; 80076; 82105; 99212

== ENCOUNTER 2022-09-17 12:06 | Outpatient (REF) | payer OTHER, SELFPAY ==
--- NOTE | ~2022-09-17 | US_ITS ---
EXAMINATION: US RETROPERITONEAL LIMITED (RENAL ONLY) CLINICAL INFORMATION: Calculus of kidney. COMPARISON: Ultrasound abdomen limited 03/14/2022. Ultrasound renal bilateral 09/19/2021. CT abdomen pelvis 12/02/2021. TECHNIQUE: Real-time imaging of the kidneys. FINDINGS: RIGHT KIDNEY: 11.0 x 3.6 x 3.9 cm (SAG x AP x TRV). The kidney is normal in size, contour, and echogenicity. Renal cortical thickness is normal. No calculi or focal parenchymal lesions. No hydronephrosis. LEFT KIDNEY: 11.4 x 4.4 x 4.4 cm (SAG x AP x TRV). The kidney is normal in size, contour, and echogenicity. Renal cortical thickness is normal. No renal calculi or hydronephrosis. 3.0 cm simple cyst in the upper pole. No follow-up imaging is recommended. Stable caliectasis in the lower pole. US/US renal BI IMPRESSION: No visible nephrolithiasis. No hydronephrosis. Stable mild caliectasis in the left lower kidney compared to CT 02/01/2022.
== END 2022-09-17 12:07 | disposition home or self-care (01) ==
LOC: HO.US 12:06
PROVIDERS: PCP Nurse Practitioner Primary Care; Visit Provider Urology
DX: N20.0 Calculus of kidney (principal)
CPT/HCPCS: 76775

== ENCOUNTER 2022-09-20 08:54 | Outpatient (REF) | payer OTHER, SELFPAY | END 2022-09-20 08:55 | disposition home or self-care (01) | LOC: HO.MDS 08:54 | PROVIDERS: Visit Provider Internal Medicine Pulmonary Disease | DX: J45.50 Severe persistent asthma, uncomplicated (principal) | CPT/HCPCS: 96372; J2357 ==

== ENCOUNTER 2022-09-26 08:49 | Outpatient (REF) | payer OTHER, SELFPAY ==
--- NOTE | ~2022-09-26 | US_ITS ---
EXAMINATION: US ABDOMEN COMPLETE CLINICAL INFORMATION: OKEEFE (nonalcoholic steatosis). COMPARISON: Bilateral renal ultrasound dated 09/17/2022. Ultrasound abdomen limited dated 03/14/2022. TECHNIQUE: Real-time imaging of the abdominal viscera. Technically difficult study secondary to bowel gas and body habitus. FINDINGS: PANCREAS: Visualized portions of the pancreas are unremarkable. The pancreatic tail is obscured by bowel gas. ABDOMINAL AORTA: Atherosclerosis of the abdominal aorta. Dilated infrarenal abdominal aorta measuring 2.7 cm in diameter. INFERIOR VENA CAVA: Visualized portions are normal. LIVER: Liver is borderline enlarged measuring 16.5 cm in span decreased from prior previously 19.3 cm.. The liver contour is normal. Increased hepatic echogenicity which can be seen in the setting of hepatic steatosis or underlying liver disease. No focal hepatic lesion. There is no intrahepatic biliary duct dilatation seen. GALLBLADDER: Normal. The gallbladder is physiologically distended without evidence of stones, sludge, polyps, wall thickening or pericholecystic fluid. COMMON BILE DUCT: Dilated for age measuring 0.9 cm in diameter, not increased in size from prior previously 1.0 cm. RIGHT KIDNEY: Normal. No hydronephrosis. No renal calculi or focal parenchymal lesions. The kidney measures 10.6 cm in maximum dimension. LEFT KIDNEY: Benign-appearing renal cyst measuring 3.3 cm. No follow up imaging is recommended. No hydronephrosis or renal calculi. The kidney measures 11.4 cm in maximum dimension. SPLEEN: Normal. The spleen measures 7.6 cm in maximum dimension. FREE FLUID: None. US/US abdomen complete IMPRESSION: * Increased hepatic echogenicity which can be seen in the setting of hepatic steatosis or underlying liver disease. Liver is borderline enlarged, decreased from prior. * Dilated infrarenal abdominal aorta measuring 2.7 cm in diameter. Atherosclerosis of the abdominal aorta. Recommend followup every 5 years. Reference: J Am Bull Radiol 2013; 10 (10): 789-794. * Common bile duct is dilated for age measuring 0.9 cm another node increased from prior. No intrahepatic biliary duct dilatation. Consider correlation with LFTs and MRCP if warranted clinically.
== END 2022-09-26 08:50 | disposition home or self-care (01) ==
LOC: HO.US 08:49
PROVIDERS: Visit Provider Nurse Practitioner
DX: K75.81 Nonalcoholic steatohepatitis (NASH) (principal)
CPT/HCPCS: 76700

== ENCOUNTER 2022-10-01 14:54 | Outpatient (AMB) | payer OTHER, SELFPAY ==
[2022-10-01 14:59] VITALS: BP 139/88; PULSE 86; BMI 36.1
--- NOTE | 2022-10-01 14:59 | MHC.OFFVIS ---
Intake Vital Signs 10/01/22 14:59 Height 5 ft 3 in Weight 204 lb BMI 36.1 BP 139/88 Blood Pressure Location Lt brachial Position Sitting Pulse 86 Intake Visit Reasons: 3 week follow up Intake Note: Patient presents to in office visit today in follow up of US of liver. CC: Patient Single Ending 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 Required: Yes Single Ending 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 Language: Kinyarwanda Accompanied by: Self / Same As Patient Allergies aspirin [Aspirin] Allergy (Mild, Verified 10/03/22 11:46) ITCHY THROAT azithromycin Allergy (Unknown, Verified 10/03/22 11:46) Unknown naproxen Allergy (Unknown, Verified 10/03/22 11:46) Unknown simvastatin Allergy (Unknown, Verified 10/03/22 11:46) Unknown Fish Containing Products Allergy (Verified 10/03/22 11:46) Swelling onion [ONION] Adverse Reaction (Mild, Verified 10/03/22 11:46) RED FACE HPI 3 week follow up HPI Details Assessment & Plan (1) Chronic idiopathic constipation: ?Code(s): K59.04 - Chronic idiopathic constipation ?Plan: KOREAN #Lanette Live She had been doing well for a while, but then she ate white rice and again developed RUQ and CIC. She continues on the Trulance and senna, but has stopped taking the reglan - likely she just forgot about it as she is inconsistent in compliance at times. This is likely c/t her CIC. We will order a bowel prep to get her going and then re evaluate on the reglan.? She continues on her omeprazole with good control of her GERD twice a day. She is agreeable for going for her liver testing and US. ROV 6 weeks to eval all. (2) GERD (gastroesophageal reflux disease): ?Code(s): K21.9 - Gastro-esophageal reflux disease without esophagitis (3) OKEEFE (nonalcoholic steatohepatitis): ?Comment: LABS;? 07/2011 LIver panel is totally normal, hemoglobin A1c covers around 7, alpha fetoprotein tumor marker at baseline is 1.6, 05/2018 autoimmune workup is negative, ferritin is normal at 49, she is immune to hepatitis a B and negative for hepatitis C. CURRENT LABS 12/27/2210/10/22 ?[id number] Total Bilirubin 0.3 Direct Bilirubin < 0.2 AST 18 ALT 16 Alkaline Phosphatase 98 Alpha Fetoprotein 2.1 * US ABD? 03/14/22 IMPRESSION: 1.? Diffusely echogenic liver without focal lesion. Mild hepatomegaly ? 2.? Visualized gallbladder, CBD, right kidney and visualized pancreas are unremarkable. ? Dictated By:Saad Howell MDSigned By:<Electronically signed by Saad Howell MD in [place]>03/14/22 ?Code(s): K75.81 - Nonalcoholic steatohepatitis (OKEEFE) (4) Small bowel motility disorder: ?Code(s): K59.9 - Functional intestinal disorder, unspecified ? ? ? Orders: Orders Alpha FetoproteinA Today K75.81 - Nonalcoho lic steatohepatiti s (OKEEFE) ? Liver Panel Today K75.81 - Nonalcoho lic steatohepatiti s (OKEEFE) ? US abdomen complet e Today K75.81 - Nonalcoho lic steatohepatiti s (OKEEFE) ? Medications: New peg 3350-electroly ugo 236-22.74-6.74 -5.86 gram (Golyt mouna) ?? until feca l effluent is treva r; do not exceed a total volume of 2 ,000 mL 240 mL? PO Q10M 1 day 4,000 mL 0RF Z12.11 - Encounter for screening for malignant neoplas m of colon ? metoclopramide HCl (Reglan) 10 mg? PO .tidac 9 0 tabs 6RF K59.9 - Functional intestinal disord er, unspecified ? Refilled plecanatide (Trula nce) ?? Take one t ablet by mouth onc e a day 3 mg? PO DAILY 30 days 30 tabs 6RF ? ? sennosides (senna) 17.2 mg (2 x 8.6 m g) PO BEDTIME 60 t abs 6RF constipati on ? ? omeprazole 20 mg? PO BID@0630 ,1630 60 caps 6RF ? ? LABS: Laboratory Tests 08/22/22 09/04/22 09/10/22 17:34 11:33 14:59 Plt Count 312 Hgb A1c (Clinic) 7.7 H Total Bilirubin 0.3 AST 27 ALT 31 Alkaline Phosphata se 93 Alpha Fetoprotein 09/10/22 14:59 Plt Count Hgb A1c (Clinic) Total Bilirubin AST ALT Alkaline Phosphata se Alpha Fetoprotein 2.1 ULTRASOUND OF THE ABDOMEN 09/27/22? : FINDINGS: PANCREAS: Visualized portions of the pancreas are unremarkable. The pancreatic tail is obscured by bowel gas. ABDOMINAL AORTA: Atherosclerosis of the abdominal aorta. Dilated infrarenal abdominal aorta measuring 2.7 cm in diameter. INFERIOR VENA CAVA: Visualized portions are normal. LIVER: Liver is borderline enlarged measuring 16.5 cm in span decreased from prior previously 19.3 cm.. The liver contour is normal. Increased hepatic echogenicity which can be seen in the setting of hepatic steatosis or underlying liver disease.? No focal hepatic lesion. There is no intrahepatic biliary duct dilatation seen. GALLBLADDER: Normal. The gallbladder is physiologically distended without evidence of stones, sludge, polyps, wall thickening or pericholecystic fluid. COMMON BILE DUCT: Dilated for age measuring 0.9 cm in diameter, not increased in size from prior previously 1.0 cm. RIGHT KIDNEY: Normal. No hydronephrosis. No renal calculi or focal parenchymal lesions. The kidney measures 10.6 cm in maximum dimension. LEFT KIDNEY: Benign-appearing renal cyst measuring 3.3 cm. No follow up imaging is recommended. No hydronephrosis or renal calculi. The kidney measures 11.4 cm in maximum dimension. SPLEEN: Normal. The spleen measures 7.6 cm in maximum dimension. FREE FLUID: None. US/US abdomen complete IMPRESSION: *? Increased hepatic echogenicity which can be seen in the setting of hepatic steatosis or underlying liver disease. Liver is borderline enlarged, decreased from prior. ? *? Dilated infrarenal abdominal aorta measuring 2.7 cm in diameter. Atherosclerosis of the abdominal aorta. Recommend followup every 5 years. Reference: J Am Bull Radiol 2013; 10 (10): 789-794. ? *? Common bile duct is dilated for age measuring 0.9 cm another node increased from prior. No intrahepatic biliary duct dilatation. Consider correlation with LFTs and MRCP if warranted clinically. ? TODAY'S VISIT KOREAN #Finesse Martin. She was anxious to hear about her liver. I review the results and she seems to be stable. She asks if she can have beer at [place] and this is okay - she should not drink every day. We again review diet and wt loss along with sugar control to best control her OKEEFE. She has been eating more salads and trying to avoid what bread and white rice. This is morton to controlling her CIC. She says she was just started on Ozempic and was taking it but got scared when I read the recent news. I think this was the new about possible gastroparesis, and having this permanently is quite rare. I encourage her to continue this. When she was on it in the past she tolerated it well. She continues on her Trulance, senna, Reglan, and omeprazole and is now satisfied with her GI regimen. ROV 6 mos. PFSH Medical History Allergic rhinitis Anxiety and depression Bronchitis Chest pain Cocaine abuse COPD exacerbation Diabetes DVT (deep venous thrombosis) Fibromyalgia HTN (hypertension) Hypothyroidism Low vitamin D level Non-toxic multinodular goiter PTSD (post-traumatic stress disorder) Renal calculi Spondylosis of cervical region without myelopathy or radiculopathy UTI (urinary tract infection) Vertigo Surgical History H/O colonoscopy with polypectomy History of esophagogastroduodenoscopy (EGD) History of hysterectomy History of lithotripsy History of selective injection of anesthetic agent around lumbar nerve root Hx of right breast biopsy Family History Father No problems noted. 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 Female Reproductive History Menstrual Age of Menarche: 10 Review of Systems Const Denies fatigue, Denies fever(s), Denies night sweats, Denies poor appetite and Denies weight loss ENT Reports Normal hearing present, Denies dental pain, Denies dysphagia, Denies hearing loss, Denies mouth pain, Denies odynophagia, Denies throat swelling, Denies tongue swelling and Reports other (Dentition adequate) Card Reports no additional complaints Resp Reports no additional complaints GI Denies abdominal pain, Denies melena, Denies bloating, Denies hematochezia, Reports constipation, Denies GI cramping, Denies dysphagia, Denies excessive flatus, Denies early satiety, Reports heartburn, Denies diarrhea, Denies nausea, Denies odynophagia, Denies vomiting and Denies hematemesis Skin/Breast Denies pruritus, Denies lesions, Denies rash and Denies jaundice Neuro Reports Normal hearing present and Denies Abnormal speech present Endo Denies fatigue Aller/Immun Denies throat swelling and Denies tongue swelling Physical Exam Vital Signs: Last Vital Signs Pulse 86 10/01/22 14:59 BP 139/88 10/01/22 14:59 BMI result Body Mass Index 36.1 Const General: cooperative, no acute distress, well developed and well groomed Nutritional Appearance: well nourished and obese Orientation/consciousness: oriented to person, oriented to place and oriented to time Limitations: language barrier HEENT Head: Yes normocephalic and Yes atraumatic Eyes General: appearance normal, both eyes and all related structures Pupils: Equal, round and reactive pupils present Neck Neck: Yes normal visual inspection and Yes no lymphadenopathy Thyroid: Thyroid normal Resp Effort & Inspection: normal respiratory effort and able to speak in complete sentences Auscultation: clear to auscultation bilaterally Cardio Rate: regular rate Rhythm: regular rhythm Heart sounds: Normal, physiologic split S2 sound present Peripheral pulses: radial pulses present and posterior tibial pulses present GI Inspection: No distended, Yes Abdominal panniculus present and Yes obesity Palpation (GI): Soft to palpation, nontender, no guarding, not rigid and No hepatosplenomegaly present Percussion: Yes normal to percussion Auscultation: normal bowel sounds Rectal Exam - Female: deferred Skin General skin exam: no rashes or lesions noted, turgor normal, skin not dry, no jaundice, No spider nevi and no striae Rashes: no rashes Nails: normal Neuro General: oriented to person, oriented to place and oriented to time Cranial nerves: Yes Equal, round and reactive pupils present and Yes Normal hearing present Speech: No Abnormal speech present Extrem General: Yes normal to inspection, No clubbing, No cyanosis and No edema Psych Appearance: grossly normal and well kempt Mental Status: mental status grossly normal Speech and movement: Normal speech and movement present Affect: normal affect Attitude: cooperative Thought process: Normal thought process present and not confabulating Thought content: Normal thought content present Insight: Limited insight present (Psych) Judgement: Limited judgement present (Psych) Results Reviewed Results Reviewed: 08/22/22 09/04/22 09/10/22 17:34 11:33 14:59 Plt Count 312 Hgb A1c (Clinic) 7.7 H Total Bilirubin 0.3 AST 27 ALT 31 Alkaline Phosphatase 93 Alpha Fetoprotein 09/10/22 14:59 Plt Count Hgb A1c (Clinic) Total Bilirubin AST ALT Alkaline Phosphatase Alpha Fetoprotein 2.1 ULTRASOUND OF THE ABDOMEN 09/27/22? : FINDINGS: PANCREAS: Visualized portions of the pancreas are unremarkable. The pancreatic tail is obscured by bowel gas. ABDOMINAL AORTA: Atherosclerosis of the abdominal aorta. Dilated infrarenal abdominal aorta measuring 2.7 cm in diameter. INFERIOR VENA CAVA: Visualized portions are normal. LIVER: Liver is borderline enlarged measuring 16.5 cm in span decreased from prior previously 19.3 cm.. The liver contour is normal. Increased hepatic echogenicity which can be seen in the setting of hepatic steatosis or underlying liver disease.? No focal hepatic lesion. There is no intrahepatic biliary duct dilatation seen. GALLBLADDER: Normal. The gallbladder is physiologically distended without evidence of stones, sludge, polyps, wall thickening or pericholecystic fluid. COMMON BILE DUCT: Dilated for age measuring 0.9 cm in diameter, not increased in size from prior previously 1.0 cm. RIGHT KIDNEY: Normal. No hydronephrosis. No renal calculi or focal parenchymal lesions. The kidney measures 10.6 cm in maximum dimension. LEFT KIDNEY: Benign-appearing renal cyst measuring 3.3 cm. No follow up imaging is recommended. No hydronephrosis or renal calculi. The kidney measures 11.4 cm in maximum dimension. SPLEEN: Normal. The spleen measures 7.6 cm in maximum dimension. FREE FLUID: None. US/US abdomen complete IMPRESSION: *? Increased hepatic echogenicity which can be seen in the setting of hepatic steatosis or underlying liver disease. Liver is borderline enlarged, decreased from prior. ? *? Dilated infrarenal abdominal aorta measuring 2.7 cm in diameter. Atherosclerosis of the abdominal aorta. Recommend followup every 5 years. Reference: J Am Bull Radiol 2013; 10 (10): 789-794. ? *? Common bile duct is dilated for age measuring 0.9 cm another node increased from prior. No intrahepatic biliary duct dilatation. Consider correlation with LFTs and MRCP if warranted clinicall Assessment & Plan Assessment & Plan (1) OKEEFE (nonalcoholic steatohepatitis): Comment: LABS; 07/2011 LIver panel is totally normal, hemoglobin A1c covers around 7, alpha fetoprotein tumor marker at baseline is 1.6, 05/2018 autoimmune workup is negative, ferritin is normal at 49, she is immune to hepatitis a B and negative for hepatitis C. CURRENT LABS 08/22/22 Plt Count 312 Hgb A1c (Clinic) 7.7 H Total Bilirubin 0.3 AST 27 ALT 31 Alkaline Phosphatase 93 Alpha Fetoprotein 2.1 ULTRASOUND OF THE ABDOMEN 09/27/22? : FINDINGS: PANCREAS: Visualized portions of the pancreas are unremarkable. The pancreatic tail is obscured by bowel gas. ABDOMINAL AORTA: Atherosclerosis of the abdominal aorta. Dilated infrarenal abdominal aorta measuring 2.7 cm in diameter. INFERIOR VENA CAVA: Visualized portions are normal. LIVER: Liver is borderline enlarged measuring 16.5 cm in span decreased from prior previously 19.3 cm.. The liver contour is normal. Increased hepatic echogenicity which can be seen in the setting of hepatic steatosis or underlying liver disease.? No focal hepatic lesion. There is no intrahepatic biliary duct dilatation seen. GALLBLADDER: Normal. The gallbladder is physiologically distended without evidence of stones, sludge, polyps, wall thickening or pericholecystic fluid. COMMON BILE DUCT: Dilated for age measuring 0.9 cm in diameter, not increased in size from prior previously 1.0 cm. RIGHT KIDNEY: Normal. No hydronephrosis. No renal calculi or focal parenchymal lesions. The kidney measures 10.6 cm in maximum dimension. LEFT KIDNEY: Benign-appearing renal cyst measuring 3.3 cm. No follow up imaging is recommended. No hydronephrosis or renal calculi. The kidney measures 11.4 cm in maximum dimension. SPLEEN: Normal. The spleen measures 7.6 cm in maximum dimension. FREE FLUID: None. US/US abdomen complete IMPRESSION: *? Increased hepatic echogenicity which can be seen in the setting of hepatic steatosis or underlying liver disease. Liver is borderline enlarged, decreased from prior. ? *? Dilated infrarenal abdominal aorta measuring 2.7 cm in diameter. Atherosclerosis of the abdominal aorta. Recommend followup every 5 years. Reference: J Am Bull Radiol 2013; 10 (10): 789-794. ? *? Common bile duct is dilated for age measuring 0.9 cm another node increased from prior. No intrahepatic biliary duct dilatation. Consider correlation with LFTs and MRCP if warranted clinicall Code(s): K75.81 - Nonalcoholic steatohepatitis (OKEEFE) Plan: [place]OREAN #Veronica, Finesse. She was anxious to hear about her liver. I review the results and she seems to be stable. She asks if she can have beer at [place] and this is okay - she should not drink every day. We again review diet and wt loss along with sugar control to best control her OKEEFE. She has been eating more salads and trying to avoid what bread and white rice. This is morton to controlling her CIC. She says she was just started on Ozempic and was taking it but got scared when I read the recent news. I think this was the new about possible gastroparesis, and having this permanently is quite rare. I encourage her to continue this. When she was on it in the past she tolerated it well. She continues on her Trulance, senna, Reglan, and omeprazole and is now satisfied with her GI regimen. ROV 6 mos. (2) Chronic idiopathic constipation: Code(s): K59.04 - Chronic idiopathic constipation (3) GERD (gastroesophageal reflux disease): Code(s): K21.9 - Gastro-esophageal reflux disease without esophagitis Coding Level of Care Code Est Pt Level 3 (25607) Diagnoses OKEEFE (nonalcoholic steatohepatitis) K75.81 Chronic idiopathic constipation K59.04 GERD (gastroesophageal reflux disease) K21.9
== END 2022-10-01 15:14 | disposition home or self-care (01) ==
PROVIDERS: PCP Nurse Practitioner Primary Care; Visit Provider Nurse Practitioner
DX: K75.81 Nonalcoholic steatohepatitis (NASH) (principal); K59.04 Chronic idiopathic constipation; K21.9 Gastro-esophageal reflux disease without esophagitis
CPT/HCPCS: 99213

== ENCOUNTER → 2022-10-01 14:54 | Outpatient (BNVA) | payer OTHER, SELFPAY | PROVIDERS: PCP Nurse Practitioner Primary Care; Visit Provider Nurse Practitioner | DX: K59.04 Chronic idiopathic constipation (principal); K75.81 Nonalcoholic steatohepatitis (NASH); K21.9 Gastro-esophageal reflux disease without esophagitis | CPT/HCPCS: 99212 ==

== ENCOUNTER 2022-10-03 11:39 | Outpatient (AMB) | payer OTHER, SELFPAY ==
--- NOTE | 2022-10-03 03:22 | A.OFFVIS_ITS ---
Intake Intake Visit Reasons: 6 month follow up/ US(?) Intake Note: Patient presents today for a follow-up on US Results Completed on 09/26/2022: Meds- None Allergies to Antibiotic- Azithromycin Blood Thinner- None Prosthodontist Required: Yes Prosthodontist Language: [place] Information Interpreted: non-clinical & clinical Accompanied by: Self / Same As Patient Allergies aspirin [Aspirin] Allergy (Mild, Verified 10/03/22 11:46) ITCHY THROAT azithromycin Allergy (Unknown, Verified 10/03/22 11:46) Unknown naproxen Allergy (Unknown, Verified 10/03/22 11:46) Unknown simvastatin Allergy (Unknown, Verified 10/03/22 11:46) Unknown Fish Containing Products Allergy (Verified 10/03/22 11:46) Swelling onion [ONION] Adverse Reaction (Mild, Verified 10/03/22 11:46) RED FACE HPI HPI Comments History of Present Illness Details Nuvia is a 62-year-old female who presents today via tele-visit for a 6 month follow up on US results. 10/03/2022? The patient is a [place] speaking female. Certified mail room was present during the visit. She was last seen by me on 04/05/2022 for nephrolithiasis. Recommended to continue monitor with imaging and continue vitamin B6 daily at that time. She has had US of the abdomen done on 09/26/2022. I reviewed the results of the renal US from 09/17/2022 revealed no kidney stones were visualized, no hydronephrosis. She states she is taking vitamin B6 daily. Review of charts: Last visit: 04/05/2022. nephrolithiasis, [place] speaker.? [place] translation provided in office by Certified anesthesiology medical doctor I reviewed imaging 02/01/2023 - CT Abd/pelvis - left kidney 2.5 cm exophytic cyst.? 3 mm left renal stone pt asymptomatic. Plan cont to monitor with imaging. Vit B6 100mg. Prior Imaging - 10/08 renal ultrasound no evidence of stones Plan: Renal US in months. [facility] Medical History Allergic rhinitis Anxiety and depression Bronchitis Chest pain Cocaine abuse COPD exacerbation Diabetes DVT (deep venous thrombosis) Fibromyalgia HTN (hypertension) Hypothyroidism Low vitamin D level Non-toxic multinodular goiter PTSD (post-traumatic stress disorder) Renal calculi Spondylosis of cervical region without myelopathy or radiculopathy UTI (urinary tract infection) Vertigo Surgical History H/O colonoscopy with polypectomy History of esophagogastroduodenoscopy (EGD) History of hysterectomy History of lithotripsy History of selective injection of anesthetic agent around lumbar nerve root Hx of right breast biopsy Family History Father No problems noted. 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 Female Reproductive History Menstrual Age of Menarche: 10 Review of Systems Const All systems reviewed & are unremarkable except as noted in HPI and below Reports no additional complaints Eyes Reports no additional complaints ENT Reports no additional complaints Card Denies dyspnea Resp Denies cough and Denies dyspnea GI Reports no additional complaints Reports no additional complaints Musc Reports no additional complaints Skin/Breast Denies rash and Denies unusual bruising Neuro Reports no additional complaints Psych Reports no additional complaints Endo Reports no additional complaints Bruno/Lymph Reports no additional complaints Aller/Immun Reports no additional complaints Results Reviewed Results Reviewed: Date of Service: 09/26/22 EXAMINATION: US ABDOMEN COMPLETE CLINICAL INFORMATION: [place]EEFE (nonalcoholic steatosis). COMPARISON: Bilateral renal ultrasound dated 09/17/2022. Ultrasound abdomen limited dated 03/14/2022.? FINDINGS: PANCREAS: Visualized portions of the pancreas are unremarkable. The pancreatic tail is obscured by bowel gas. ABDOMINAL AORTA: Atherosclerosis of the abdominal aorta. Dilated infrarenal abdominal aorta measuring 2.7 cm in diameter. INFERIOR VENA CAVA: Visualized portions are normal. LIVER: Liver is borderline enlarged measuring 16.5 cm in span decreased from prior previously 19.3 cm.. The liver contour is normal. Increased hepatic echogenicity which can be seen in the setting of hepatic steatosis or underlying liver disease.? No focal hepatic lesion. There is no intrahepatic biliary duct dilatation seen. GALLBLADDER: Normal. The gallbladder is physiologically distended without evidence of stones, sludge, polyps, wall thickening or pericholecystic fluid. COMMON BILE DUCT: Dilated for age measuring 0.9 cm in diameter, not increased in size from prior previously 1.0 cm. RIGHT KIDNEY: Normal. No hydronephrosis. No renal calculi or focal parenchymal lesions. The kidney measures 10.6 cm in maximum dimension. LEFT KIDNEY: Benign-appearing renal cyst measuring 3.3 cm. No follow up imaging is recommended. No hydronephrosis or renal calculi. The kidney measures 11.4 cm in maximum dimension. SPLEEN: Normal. The spleen measures 7.6 cm in maximum dimension. FREE FLUID: None. IMPRESSION: *? Increased hepatic echogenicity which can be seen in the setting of hepatic steatosis or underlying liver disease. Liver is borderline enlarged, decreased from prior. ? *? Dilated infrarenal abdominal aorta measuring 2.7 cm in diameter. Atherosclerosis of the abdominal aorta. Recommend followup every 5 years. Reference: J Am Bull Radiol 2013; 10 (10): 789-794. ? *? Common bile duct is dilated for age measuring 0.9 cm another node increased from prior. No intrahepatic biliary duct dilatation. Consider correlation with LFTs and MRCP if warranted clinically. Date of Service: 09/17/22 EXAMINATION: US RETROPERITONEAL LIMITED (RENAL ONLY) CLINICAL INFORMATION: Calculus of kidney. COMPARISON: Ultrasound abdomen limited 03/14/2022. Ultrasound renal bilateral 09/19/2021. CT abdomen pelvis 12/02/2021. FINDINGS: RIGHT KIDNEY: 11.0 x 3.6 x 3.9 cm (SAG x AP x TRV). The kidney is normal in size, contour, and echogenicity. Renal cortical thickness is normal. No calculi or focal parenchymal lesions. No hydronephrosis. LEFT KIDNEY: 11.4 x 4.4 x 4.4 cm (SAG x AP x TRV). The kidney is normal in size, contour, and echogenicity. Renal cortical thickness is normal. No renal calculi or hydronephrosis. 3.0 cm simple cyst in the upper pole. No follow-up imaging is recommended. Stable caliectasis in the lower pole. IMPRESSION: No visible nephrolithiasis. No hydronephrosis. Stable mild caliectasis in the left lower kidney compared to CT 02/01/2022. Assessment & Plan Assessment & Plan (1) Kidney stone on left side: Code(s): N20.0 - Calculus of kidney Plan Renal US in 9 months. Orders: Orders US renal BI 8 Months N20.0 - Calculus of kidney Patient Instructions: The patient had an opportunity to ask questions regarding treatment plan. All questions were answered. Imaging, Laboratory studies and physical exam results were discussed and reviewed in detail. No major barriers to understanding were identified. The patient expressed understanding and agreement with the above treatment plan.? ? ? The patient is aware they should contact our office by phone for worsening of their current condition or the appearance of new symptoms. Compliance is encouraged with any medications and followup testing that is ordered.? ? ? It is a privilege to be allowed the opportunity to participate in the urologic care of your patient. If you have any questions or concerns regarding treatment for the above conditions please do not hesitate to contact me. The office telephone contact is [phone].? ? ? This note is constructed in part using voice recognition software. 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 ? ? Yours sincerely,? ? ? Moses Mccoy MD? Telehealth Telehealth Location of provider rendering services: practice address Location of patient: address on file Patient Identification confirmed using: Name, : Yes Telehealth method: voice only Patient verbally consented to treatment: Yes Patient verbally consented to billing insurance company: Yes Patient informed of any privacy concerns related to visit: Yes Minutes spent on Phone/Video with Pt.: 15 Coding Level of Care Code Est Pt Level 3 (13246) Diagnoses Kidney stone on left side N20.0
== END 2022-10-03 12:04 | disposition home or self-care (01) ==
LOC: HO.HUSH 11:39
PROVIDERS: PCP Nurse Practitioner Primary Care; Visit Provider Urology
DX: N20.0 Calculus of kidney (principal)
CPT/HCPCS: 99213

== ENCOUNTER → 2022-10-03 11:39 | Outpatient (BNVA) | payer OTHER, SELFPAY | PROVIDERS: PCP Nurse Practitioner Primary Care; Visit Provider Urology | DX: N20.0 Calculus of kidney (principal) | CPT/HCPCS: 99212 ==

== ENCOUNTER 2022-10-04 10:06 | Outpatient (REF) | payer OTHER, SELFPAY | END 2022-10-04 10:07 | disposition home or self-care (01) | LOC: HO.MDS 10:06 | PROVIDERS: Visit Provider Internal Medicine Pulmonary Disease | DX: J45.50 Severe persistent asthma, uncomplicated (principal) | CPT/HCPCS: 96372 ==

== ENCOUNTER 2022-10-18 08:57 | Outpatient (REF) | payer OTHER, SELFPAY | END 2022-10-18 08:58 | disposition home or self-care (01) | LOC: HO.MDS 08:57 | PROVIDERS: Visit Provider Internal Medicine Pulmonary Disease | DX: J45.50 Severe persistent asthma, uncomplicated (principal) | CPT/HCPCS: 96372 ==

== ENCOUNTER 2022-10-20 11:49 | Emergency (ER) | payer OTHER, SELFPAY ==
--- NOTE | ~2022-10-20 | XR_ITS ---
EXAMINATION: XR CHEST CLINICAL INFORMATION: Chest pain COMPARISON: Previous chest x-rays most recent August 2022 TECHNIQUE: 2 views of the chest were obtained. FINDINGS: The cardiac and mediastinal contours are stable. The thoracic aorta is tortuous. The lungs are clear. No pleural effusion or pneumothorax. There is slight elevation of the left hemidiaphragm similar to previous exams. There are are degenerative changes of the spine. XR/XR chest 2V IMPRESSION: No evidence for acute disease in the chest.
--- NOTE | 2022-10-20 11:55 | ECG_ITS ---
Test Reason : CP Blood Pressure : / mmHG Vent. Rate : 071 BPM Atrial Rate : 071 BPM P-R Int : 234 ms QRS Dur : 094 ms QT Int : 422 ms P-R-T Axes : 043 -40 013 degrees QTc Int : 458 ms Sinus rhythm with 1st degree A-V block Left axis deviation Minimal voltage criteria for LVH, may be normal variant ( Bala product ) Abnormal ECG When compared with ECG of 22-AUG-2022 17:25, No significant change was found Referred By: Alexandra Aldana Electronically Signed By:GERARDO VASQUES
--- NOTE | 2022-10-20 12:24 | ED.CHESTPAIN ---
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 Patient reports that she is currently being treated for bronchitis, has had nasal congestion and cough. Reports some shortness of breath with onset of chest pain. Reports that prior to onset of chest pain she was doing a lot of heavy lifting. Denies fevers. Reports pain is worse with movement and palpation. Denies any nausea, vomiting, diarrhea or constipation. Denies abdominal pain. Denies hemoptysis. Denies recent calf pain or swelling. MD complaint: chest pain Pertinent past history: other (DM, HTN) Onset (ago): day(s) Timing of current episode: constant (colicky) Prior episodes: No Onset: during rest Pain location: parasternal Pain radiation: none Severity: moderate Quality: aching Relieving factors: rest Exacerbating factors: palpation and movement Context: recent illness Associated symptoms: cough Treatment prior to arrival: other (tramadol) Risk Factors Coronary artery disease risk factors: diabetes and hypertension Related Data Home Medications Medication Instructions Recorded Confirmed calcium carbonate 600 mg-vitamin 1 tab PO BID 11/20/19 05/30/22 D3 10 mcg (400 unit) tablet potassium chloride 20 mEq 20 meq PO BID 11/20/19 05/30/22 tablet,extended release(part/cryst) risperidone 0.5 mg tablet 0.5 mg PO BID 11/20/19 05/30/22 zolpidem 10 mg tablet 10 mg PO BEDTIME PRN Insomnia 11/20/19 05/30/22 clonazepam 1 mg tablet (Klonopin) 1 mg PO DAILY 03/08/20 05/30/22 montelukast 10 mg tablet 10 mg PO BEDTIME 03/08/20 05/30/22 ipratropium 0.5 mg-albuterol 3 mg 3 ml inhalation Q6H PRN 07/06/21 05/30/22 (2.5 mg base)/3 mL nebulization Respiratory Distress soln multivitamin-ferrous 1 tab PO DAILY 07/06/21 05/30/22 fumarate-folic acid 18 mg-400 mcg tablet (Certavite-Antioxidant) fluoride (sodium) 1.1 % dental appl PO 10/16/21 05/30/22 cream (SF 5000 Plus) buspirone 7.5 mg tablet 7.5 mg PO BID 01/31/22 05/30/22 tramadol 50 mg tablet 50 mg PO BID PRN 01/31/22 05/30/22 diclofenac sodium 1 % topical gel g topical 05/07/22 05/30/22 acetaminophen 325 mg tablet 325 mg PO PRN pain 06/11/22 Previous Rx's Medication Instructions Recorded leg brace (Knee Support Brace) #2 ea 03/08/20 blood-glucose meter (FreeStyle #1 ea 02/28/22 Flash System kit) pyridoxine (vitamin B6) 100 mg 100 mg PO DAILY #90 tabs 04/05/22 tablet levothyroxine 75 mcg tablet 75 mcg PO QAM #90 tabs 04/11/22 benzonatate 100 mg capsule 100 mg PO TID PRN cough #30 caps 05/10/22 docusate sodium 100 mg capsule 100 mg PO BID 30 days #60 caps 06/11/22 blood sugar diagnostic (FreeStyle #100 ea 07/16/22 Lite Strips) lancets 28 gauge (FreeStyle #100 ea 07/16/22 Lancets) flash glucose scanning reader #1 ea 07/18/22 (FreeStyle Jalil 2 Volcano) Lactobacil rhamnosus GG 10 billion 1 cap PO DAILY #30 caps 07/30/22 cell-inulin 200 mg sprinkle capsule ([facility]) dextrose 40 % oral gel (Glutose-15) 15 g PO DIRECTED for 08/13/22 hypoglycemia #112.5 grams gabapentin 400 mg capsule 400 mg PO BEDTIME #30 caps 08/19/22 Xolair 150 mg/mL subcutaneous 300 mg (2 mL) subcut Q2W #4 mL 09/03/22 syringe (omalizumab) semaglutide 1 mg/dose (4 mg/3 mL) 1 mg (0.75 mL) subcut QWEEK #3 mL 09/04/22 subcutaneous pen injector (Ozempic) metoclopramide HCl 10 mg tablet 10 mg PO .tidac #90 tabs 09/10/22 (Reglan) omeprazole 20 mg capsule,delayed 20 mg PO BID@0630,1630 #60 caps 09/10/22 release peg 3350-electrolytes 236 240 ml PO Q10M 1 day #4,000 mL 09/10/22 gram-22.74 gram-6.74 gram-5.86 gram solution (Golytely) plecanatide 3 mg tablet (Trulance) 3 mg PO DAILY 30 days #30 tabs 09/10/22 sennosides 8.6 mg tablet (senna) 17.2 mg PO BEDTIME constipation 09/10/22 #60 tabs pen needle, diabetic 32 gauge x ##100 10/01/2232 (UltiCare Pen Needle) Combivent Respimat 20 mcg-100 1 puff inhalation QID #4 grams 10/02/22 mcg/actuation solution for inhalation (ipratropium-albuterol) albuterol sulfate 90 mcg/actuation 2 puff inhalation Q4-6H PRN 10/02/22 aerosol inhaler shortness of breath or wheezing #6.7 grams fluticasone 250 mcg-salmeterol 50 1 ea inhalation BID 30 days #60 ea 10/02/22 mcg/dose blistr powdr for inhalation tiotropium bromide 18 mcg capsule 1 cap inhalation DAILY #30 caps 10/02/22 with inhalation device (Spiriva with HandiHaler) insulin aspart See Rx Instructions subcut QAM #15 10/03/22 (niacinamide)(U-100) 100 unit/mL(3 mL mL) subcutaneous pen (Fiasp FlexTouch U-100 Insulin) levofloxacin 750 mg tablet 750 mg PO DAILY 7 days #7 tabs 10/16/22 lidocaine 5 % topical patch 1 patch topical DAILY #15 ea 10/20/22 Allergies Allergy/AdvReac Type Severity Reaction Status Date / Time aspirin [Aspirin] Allergy Mild ITCHY Verified 10/20/22 12:25 THROAT azithromycin Allergy Unknown Unknown Verified 10/20/22 12:25 naproxen Allergy Unknown Unknown Verified 10/20/22 12:25 simvastatin Allergy Unknown Unknown Verified 10/20/22 12:25 Fish Containing Products Allergy Swelling Verified 10/20/22 12:25 onion [ONION] AdvReac Mild RED FACE Verified 10/20/22 12:25 Review of Systems Review of Systems: As per HPI. Yes all other systems are reviewed and are negative Constitutional: Constitutional: Reports as per HPI [facility] Past Medical History Medical History Allergic rhinitis Anxiety and depression Bronchitis Chest pain Cocaine abuse COPD exacerbation Diabetes DVT (deep venous thrombosis) Fibromyalgia HTN (hypertension) Hypothyroidism Low vitamin D level Non-toxic multinodular goiter PTSD (post-traumatic stress disorder) Renal calculi Spondylosis of cervical region without myelopathy or radiculopathy UTI (urinary tract infection) Vertigo Surgical History H/O colonoscopy with polypectomy History of esophagogastroduodenoscopy (EGD) History of hysterectomy History of lithotripsy History of selective injection of anesthetic agent around lumbar nerve root Hx of right breast biopsy Family History Family History Father No problems noted. 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 Blood pressure elevated. Heart rate normal. Respiratory rate normal. Temperature normal. Oxygen saturation normal. Const: General: cooperative, healthy appearing and no acute distress Orientation/consciousness: oriented to person, oriented to place, oriented to time and patient oriented x3 Limitations: no limitations HEENT: Head: Yes normocephalic and Yes atraumatic Ears: external ears normal General nose exam: Normal external nose present Face and sinus: Yes face symmetric Mouth: oropharynx normal and moist mucous membranes Throat: Yes uvula midline Eyes: Pupils: Equal, round and reactive pupils present Neck: Neck: Yes normal visual inspection and Yes supple Chest: Chest palpation & inspection: normal inspection of the chest and tenderness sternum Resp: Effort & Inspection: normal respiratory effort and able to speak in complete sentences Auscultation: clear to auscultation bilaterally Cardio: Rate: regular rate Rhythm: regular rhythm Heart sounds: S1 normal heart sound present and S2 normal heart sound present GI: Palpation (GI): Soft to palpation and nontender Auscultation: normoactive bowel sounds : General: Yes no CVA tenderness Back/Spine/Pelvis: Back: no CVA tenderness Skin: General skin exam: elasticity normal and turgor normal Neuro: General: oriented to person, oriented to place, oriented to time, patient oriented x3, moves all extremities, no focal motor deficits and CN's II-XI intact bilaterally Cranial nerves: Yes Equal, round and reactive pupils present Cognition (Neuro): normal cognition Extrem: General: Yes full ROM, Yes no pedal edema and Yes no calf tenderness Psych: Mental Status: mental status grossly normal Affect: normal affect Thought process: Normal thought process present Course Course Course Narrative: This is a rapid medical exam. Defer additional HPI, ROS, PE to primary provider. 62 yo Monegasque speaking female with history of HTN, HLD, DM, PTSD, depression/anxiety, fibromyalgia, [place]EEFE, asthma/COPD, hypothyrodism?here with complaints of 3 days of stabbing chest pain unrelieved with home tramadol. Currently on antibiotics for bronchitis. Also having rhinorrhea, chills, cough, shortness of breath. Will obtain labs, EKG, CXR, testing for covid/flu/rsv VSS Medical Decision Making Medical Decision Making MDM Narrative: Patient is a 62-year-old female with history of DM, COPD, DVT, HTN, fibromyalgia, hypothyroidism, PTSD presenting to the emergency department with 3 days of chest pain. On exam patient is awake, A+Ox3, VS WNL, afebrile, normal neurological exam without focal deficits, RRR, LS CTA throughout, sternal/parasternal tenderness to palpation. Given reported symptoms and physical exam findings, initial differential includes ACS, pneumonia, costochondritis, pneumothorax. Unlikely aortic dissection. HEART score of 4, Wells score low risk for PE. Labs notable for no leukocytosis, no electrolyte abnormalities, negative troponin. X-ray notable for no acute process. My interpretation is in agreement with the radiologist's interpretation. Feel symptoms likely related to costochondritis. 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 Will prescribe topical lidocaine patches as patient reports she has adequate Tylenol and tramadol at home. Instructed patient to follow-up with primary care provider this week. Return precautions discussed at bedside. Patient verbalized understanding of and agreement with plan. Differential Diagnosis Differential Diagnoses: The differential diagnosis associated with the presentation includes As per [facility]. Admission/Observation Consideration of admission/observation: Escalation of care including admission/observation considered Lab Data [facility] Lab Attestation statement: I reviewed the patient's lab results. As per MDM. 10/20/22 12:24 10/20/22 12:24 Labs: Lab Results 10/20/22 10/20/22 10/20/22 Range/Units 12:24 12:24 13:05 WBC 5.7 (4.8-10.8) X10*3/uL RBC 4.37 (4.20-5.50) X10*6/uL Hgb 13.9 (12.0-16.0) g/dl Hct 41.0 (37.0-47.0) % MCV 93.8 (80.0-98.0) fL MCH 31.8 (27.0-33.0) pg MCHC 33.9 (31.0-35.0) g/dl RDW 13.0 (11.0-16.0) % Plt Count 257 (160-400) X10*3/uL MPV 9.5 (9.4-12.3) fL Immature Gran % (Auto) 0.2 (0.0-0.4) % Neut % (Auto) 40.8 L (45-73) % Lymph % (Auto) 49.2 H (20-40) % Ferry % (Auto) 7.4 (2-11) % Eos % (Auto) 1.9 (0-4) % Baso % (Auto) 0.5 (0-2) % Lymph # (Auto) 2.8 (1.2-4.9) X10*3/uL Ferry # (Auto) 0.4 (0.1-1.2) X10*3/uL Eos # (Auto) 0.1 (0.0-0.4) X10*3/uL Baso # (Auto) 0.0 (0.0-0.2) X10*3/uL Abs Immat Gran (auto) 0.01 (0.00-0.03) X10*3/uL Absolute Neuts (auto) 2.3 (2.0-8.3) x10*3/uL Absolute Nucleated RBC 0.000 (0.0-0.012) X10*3/uL Nucleated RBC % (auto) 0.0 (0.0-0.2) /100WBC PT 11.9 (11.1-13.3) SEC INR 1.0 (0.9-1.1) Sodium 144 (135-145) mmol/L Potassium 3.6 (3.3-5.1) mmol/L Chloride 110 H (96-108) mmol/L Carbon Dioxide 26 (22-29) mmol/L Anion Gap 11 L (12-20) BUN 13 (9-16) mg/dL Creatinine 0.87 (0.5-1.4) mg/dL Estim Creat Clear Calc 74.3 Estimated GFR > 60 Random Glucose 123 H (60-115) mg/dL Calcium 9.5 D (8.4-10.2) mg/dL Total Bilirubin 0.3 (0.0-1.0) mg/dL Direct Bilirubin 0.1 (0.0-0.5) mg/dL AST 34 H (5-31) U/L ALT 42 H (0-31) U/L Alkaline Phosphatase 89 (39-117) U/L Troponin I High Sens (<3.5-17.0) ng/L Total Protein 7.2 (6.5-8.0) g/dL Albumin 4.2 (3.5-5.0) g/dL Influenza Type A (PCR) (Negative) Influenza Type B (PCR) (Negative) RSV RNA Qual (PCR) (Negative) SARS-CoV-2 RNA (RT-PCR) (Negative) 10/20/22 10/20/22 Range/Units 13:05 13:05 WBC (4.8-10.8) X10*3/uL RBC (4.20-5.50) X10*6/uL Hgb (12.0-16.0) g/dl Hct (37.0-47.0) % MCV (80.0-98.0) fL MCH (27.0-33.0) pg MCHC (31.0-35.0) g/dl RDW (11.0-16.0) % Plt Count (160-400) X10*3/uL MPV (9.4-12.3) fL Immature Gran % (Auto) (0.0-0.4) % Neut % (Auto) (45-73) % Lymph % (Auto) (20-40) % Ferry % (Auto) (2-11) % Eos % (Auto) (0-4) % Baso % (Auto) (0-2) % Lymph # (Auto) (1.2-4.9) X10*3/uL Ferry # (Auto) (0.1-1.2) X10*3/uL Eos # (Auto) (0.0-0.4) X10*3/uL Baso # (Auto) (0.0-0.2) X10*3/uL Abs Immat Gran (auto) (0.00-0.03) X10*3/uL Absolute Neuts (auto) (2.0-8.3) x10*3/uL Absolute Nucleated RBC (0.0-0.012) X10*3/uL Nucleated RBC % (auto) (0.0-0.2) /100WBC PT (11.1-13.3) SEC INR (0.9-1.1) Sodium (135-145) mmol/L Potassium (3.3-5.1) mmol/L Chloride (96-108) mmol/L Carbon Dioxide (22-29) mmol/L Anion Gap (12-20) BUN (9-16) mg/dL Creatinine (0.5-1.4) mg/dL Estim Creat Clear Calc Estimated GFR Random Glucose (60-115) mg/dL Calcium (8.4-10.2) mg/dL Total Bilirubin (0.0-1.0) mg/dL Direct Bilirubin (0.0-0.5) mg/dL AST (5-31) U/L ALT (0-31) U/L Alkaline Phosphatase (39-117) U/L Troponin I High Sens < 2.7 (<3.5-17.0) ng/L Total Protein (6.5-8.0) g/dL Albumin (3.5-5.0) g/dL Influenza Type A (PCR) NEGATIVE (Negative) Influenza Type B (PCR) NEGATIVE (Negative) RSV RNA Qual (PCR) NEGATIVE (Negative) SARS-CoV-2 RNA (RT-PCR) NEGATIVE (Negative) Independent Interpretation I performed an independent interpretation of an: EKG and Plain X-Ray Interpretation: Sinus rhythm with first degree AV block, rate 71 bpm, no evidence of STEMI No acute abnormalities on chest x-ray Radiology Impression Discussion of test interpretation with radiology: I have reviewed the radiologist's reading. Radiologist Impression: XR/XR chest 2V IMPRESSION: No evidence for acute disease in the chest. External Record Review External record reviewed: Inpatient record, Office record and Outpatient record Prescription Management I considered prescription management with: Pain Medication Scores Heart Score History: -0- slightly suspicious ECG: -1- non specific repolarization disturbance Age: -1- >45 - <65 Risk factory: -2- 3 or more risk factors or treated atherosclerosis Troponin: -0- < or = normal limit Score: 4 Risk: 16.6% Wells PE Previous DVT or PE: 1.5 Score: 1.5 2-tier Risk: unlikely risk (5%) 3-tier Risk: low risk (3.4%) Discharge Plan Discharge Clinical Impression: Acute costochondritis Patient Disposition: Home, Self-Care Instructions: Costochondritis (ED) Additional Instructions: Hoy lo evaluaron en el departamento de emergencias por dolor en el pecho. Booth evaluaci?n no guzman mostrado signos de condiciones m?dicas que requieran glory intervenci?n de emergencia en jose momento; sin embargo, le recomendamos que realice un seguimiento con booth m?dico de atenci?n primaria o booth cardi?logo lo antes posible para realizar m?s pruebas keily paciente ambulatorio. Programe glory william de seguimiento con booth m?dico de atenci?n primaria lo antes posible. Regrese al departamento de emergencias si experimenta dolor en el pecho incontrolado o que empeora, dificultad para respirar, aturdimiento, sensaci?n de desmayo, p?rdida del conocimiento, n?useas, v?mitos o cualquier otro s?ntoma preocupante. Prescriptions: New lidocaine 5 % adhesive patch,medicated 1 patch topical DAILY Qty: 15 0RF Rx Instructions: leave on most painful area for up to 12 hrs No Action (DME) blood-glucose meter [FreeStyle Flash System] Kit See Rx Instructions .Route Qty: 1 0RF Rx Instructions: As directed levothyroxine 75 mcg tablet 75 mcg PO QAM Qty: 90 4RF (DME) FreeStyle Lite Strips Strip See Rx Instructions .Route Qty: 100 5RF Rx Instructions: Check blood sugars 4x a day. (DME) lancets [FreeStyle Lancets] 28 gauge misc See Rx Instructions .Route Qty: 100 5RF Rx Instructions: check blood sugars 3 times a day (DME) FreeStyle Jalil 2 Volcano Misc See Rx Instructions .Route Qty: 1 0RF Rx Instructions: As directed [facility] 10 billion cell -200 mg capsule, sprinkle 1 cap PO DAILY Qty: 30 6RF dextrose [Glutose-15] 40 % gel 15 g PO DIRECTED Qty: 112.5 5RF gabapentin 400 mg capsule 400 mg PO BEDTIME Qty: 30 4RF Xolair 150 mg/mL syringe 300 mg subcut Q2W Qty: 4 11RF (DME) pen needle, diabetic [UltiCare Pen Needle] 32 gauge x 5/32 needle See Rx Instructions .ROUTE .COMPLEX Qty: 100 5RF Dose Instruction: USE FOUR TIMES DAILY Rx Instructions: USE FOUR TIMES DAILY Spiriva with HandiHaler 18 mcg capsule, w/inhalation device 1 cap inhalation DAILY Qty: 30 6RF Combivent Respimat 20-100 mcg/actuation mist 1 puff inhalation QID Qty: 4 0RF albuterol sulfate 90 mcg/actuation HFA aerosol inhaler 2 puff inhalation Q4-6H PRN (Reason: shortness of breath or wheezing) Qty: 6.7 6RF fluticasone propion-salmeterol 250-50 mcg/dose blister with device 1 ea inhalation BID 30 Days Qty: 60 6RF Fiasp FlexTouch U-100 Insulin 100 unit/mL (3 mL) insulin pen See Rx Instructions subcut QAM Qty: 15 4RF Rx Instructions: 2 units before meals 3 times a day subcutaneously every morning; levofloxacin 750 mg tablet 750 mg PO DAILY 7 Days Qty: 7 0RF ipratropium-albuterol 0.5 mg-3 mg(2.5 mg base)/3 mL Solution For Nebulization 3 ml INHALATION Q6H PRN (Reason: Respiratory Distress) Certavite-Antioxidant 18-400 mg-mcg Tablet 1 tab PO DAILY benzonatate 100 mg capsule 100 mg PO TID PRN (Reason: cough) Qty: 30 0RF montelukast 10 mg tablet 10 mg PO BEDTIME clonazepam [Klonopin] 1 mg tablet 1 mg PO DAILY Rx Instructions: administer 30 minutes before bedtime (DME) Knee Support Brace Misc See Rx Instructions .ROUTE .MEDSUPPLY Qty: 2 0RF Rx Instructions: As directed zolpidem 10 mg tablet 10 mg PO BEDTIME PRN (Reason: Insomnia) risperidone 0.5 mg tablet 0.5 mg PO BID calcium carbonate-vitamin D3 600 mg(1,500mg) -400 unit tablet 1 tab PO BID potassium chloride 20 mEq tablet,ER particles/crystals 20 meq PO BID pyridoxine (vitamin B6) 100 mg tablet 100 mg PO DAILY Qty: 90 3RF acetaminophen 325 mg tablet 325 mg PO PRN (Reason: pain) fluoride (sodium) [SF 5000 Plus] 1.1 % cream PO buspirone 7.5 mg tablet 7.5 mg PO BID tramadol 50 mg tablet 50 mg PO BID PRN docusate sodium 100 mg capsule 100 mg PO BID 30 Days Qty: 60 6RF diclofenac sodium 1 % gel topical Ozempic 1 mg/dose (4 mg/3 mL) pen injector 1 mg subcut QWEEK Qty: 3 4RF peg 3350-electrolytes [Golytely] 236-22.74-6.74 -5.86 gram recon soln 240 ml PO Q10M 1 Days Qty: 4000 0RF Rx Instructions: until fecal effluent is clear; do not exceed a total volume of 2,000 mL Trulance 3 mg tablet 3 mg PO DAILY 30 Days Qty: 30 6RF Rx Instructions: Take one tablet by mouth once a day sennosides [senna] 8.6 mg tablet 17.2 mg PO BEDTIME Qty: 60 6RF omeprazole 20 mg capsule,delayed release(DR/EC) 20 mg PO BID@0630,1630 Qty: 60 6RF metoclopramide HCl [Reglan] 10 mg tablet 10 mg PO .tidac Qty: 90 6RF Print Language: Monegasque
[2022-10-20 12:28] LABS: MANUAL DIFF FLAG NO
[2022-10-20 12:29] LABS: Basophils Percent Auto 0.5 % (0-2); Eosinophils Absolute Auto 0.1 X10*3/uL (0.0-0.4); Eosinophils Percent Auto 1.9 % (0-4); Hemoglobin 13.9 g/dl (12.0-16.0); Imm Gran Abs Auto 0.01 X10*3/uL (0.00-0.03); Imm Gran Pct Auto 0.2 % (0.0-0.4); Lymphocytes Absolute Auto 2.8 X10*3/uL (1.2-4.9); Lymphocytes Percent Auto 49.2 % (20-40); Mean Corpuscular HGB Conc 33.9 g/dl (31.0-35.0); Mean Corpuscular Hemoglobin 31.8 pg (27.0-33.0); Mean Corpuscular Volume 93.8 fL (80.0-98.0); Mean Platelet Volume 9.5 fL (9.4-12.3); Monocytes Absolute Auto 0.4 X10*3/uL (0.1-1.2); Monocytes Percent Auto 7.4 % (2-11); Neutrophils Absolute Auto 2.3 x10*3/uL (2.0-8.3); Neutrophils Percent Auto 40.8 % (45-73); Platelet Count 257 X10*3/uL (160-400); Red Blood Count 4.37 X10*6/uL (4.20-5.50); White Blood Count 5.7 X10*3/uL (4.8-10.8)
[2022-10-20 12:35] LABS: Prothrombin Time 11.9 SEC (11.1-13.3)
[2022-10-20 12:46] VITALS: BP 162/78; PULSE 87; RESP 18; TEMP 36.9; O2SAT 98; BMI 34.8
[2022-10-20 13:37] LABS: Alanine Aminotransferase 42 U/L (0-31); Albumin Level 4.2 g/dL (3.5-5.0); Alkaline Phosphatase 89 U/L (39-117); Anion Gap 11 (12-20); Aspartate Amino Transferase 34 U/L (5-31); Bilirubin Direct 0.1 mg/dL (0.0-0.5); Bilirubin Total 0.3 mg/dL (0.0-1.0); Blood Urea Nitrogen 13 mg/dL (9-16); Calcium 9.5 mg/dL (8.4-10.2); Carbon Dioxide 26 mmol/L (22-29); Chloride 110 mmol/L (96-108); Creatinine Clr Calc Pharmacy 74.3; Estimated Glomerular Filt Rate > 60; Glucose Random 123 mg/dL (60-115); Potassium 3.6 mmol/L (3.3-5.1); Sodium 144 mmol/L (135-145); Total Protein 7.2 g/dL (6.5-8.0)
[2022-10-20 13:52] LABS: Influenza A PCR NEGATIVE (Negative); Influenza B PCR NEGATIVE (Negative); Resp Syncy Virus RNA Qual PCR NEGATIVE (Negative); SARS COV2 PCR INHOUSE NEGATIVE (Negative)
[2022-10-20 14:09] LABS: Troponin-I High Sensitivity < 2.7 ng/L (<3.5-17.0)
== END 2022-10-20 15:15 | disposition home or self-care (01) ==
PROVIDERS: Nurse Practitioner Family; Emergency Provider Emergency Medicine; PCP Nurse Practitioner Primary Care
DX: R07.89 Other chest pain (principal); R05.9 Cough, unspecified; M94.0 Chondrocostal junction syndrome [Tietze]; Z20.822 Contact with and (suspected) exposure to COVID-19; Z20.828 Contact with and (suspected) exposure to other viral communicable diseases; Z79.899 Other long term (current) drug therapy
CPT/HCPCS: 0241U; 36415; 71046; 80048; 80076; 84484; 85025; 85610; 93005; 99283

== ENCOUNTER 2022-10-22 12:25 | Outpatient (AMB) | payer OTHER, SELFPAY ==
--- NOTE | 2022-10-22 13:04 | A.OFFVIS_ITS ---
Intake Intake Visit Reasons: DM/lvm 10/17 Allergies aspirin [Aspirin] Allergy (Mild, Verified 10/20/22 12:25) ITCHY THROAT azithromycin Allergy (Unknown, Verified 10/20/22 12:25) Unknown naproxen Allergy (Unknown, Verified 10/20/22 12:25) Unknown simvastatin Allergy (Unknown, Verified 10/20/22 12:25) Unknown Fish Containing Products Allergy (Verified 10/20/22 12:25) Swelling onion [ONION] Adverse Reaction (Mild, Verified 10/20/22 12:25) RED FACE HPI Comprehensive Diabetes Asmnt Most Recent Diabetes Results: Creatinine 0.87 mg/dL (0.5-1.4) 10/20/22 Blood Urea Nitrogen 13 mg/dL (9-16) 10/20/22 Sodium 144 mmol/L (135-145) 10/20/22 Potassium 3.6 mmol/L (3.3-5.1) 10/20/22 Chloride 110 mmol/L (96-108) H 10/20/22 Carbon Dioxide 26 mmol/L (22-29) 10/20/22 Calcium 9.5 mg/dL (8.4-10.2) 10/20/22 AST 34 U/L (5-31) H 10/20/22 ALT 42 U/L (0-31) H 10/20/22 Total Protein 7.2 g/dL (6.5-8.0) 10/20/22 Albumin 4.2 g/dL (3.5-5.0) 10/20/22 PFSH Medical History Allergic rhinitis Anxiety and depression Bronchitis Chest pain Cocaine abuse COPD exacerbation Diabetes DVT (deep venous thrombosis) Fibromyalgia HTN (hypertension) Hypothyroidism Low vitamin D level Non-toxic multinodular goiter PTSD (post-traumatic stress disorder) Renal calculi Spondylosis of cervical region without myelopathy or radiculopathy UTI (urinary tract infection) Vertigo Surgical History H/O colonoscopy with polypectomy History of esophagogastroduodenoscopy (EGD) History of hysterectomy History of lithotripsy History of selective injection of anesthetic agent around lumbar nerve root Hx of right breast biopsy Family History Father No problems noted. 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 10% Time in Range:? 90% Average glucose for the last 2 weeks? 150 mg/dL Patient reports that last visit Dr. Reyes stopped mealtime insulin and started Ozempic 0.5 mg, she picked up last prescription from pharmacy for Ozempic 1 mg, instructed patient to start 1 mg Ozempic after completing 0.5 mg Ozempic Reviewed with patient how to use Ozempic pen. Reviewed how to interpret trend arrows Reminded patient that to check finger sticks if symptoms do not match sensor reading. Discussed lag time between finger stick and sensor data.? Patient able to insert sensor independently at home without issue.? Patient will follow-up with medical educator in 3 months Patient Instructions: Termine Ozempic 0.5 mg y luego comience Ozempic 1.0 semanalmente Coding Level of Care Code Est Pt Level 1 (49183) Diagnoses Type 2 diabetes mellitus with hyperglycemia E11.65 Diabetes mellitus moth exterminator insulin use: without senior care use
== END 2022-10-22 13:08 | disposition home or self-care (01) ==
LOC: HO.ENCR 12:25
PROVIDERS: PCP Nurse Practitioner Primary Care; Visit Provider Registered Nurse Diabetes Educator
DX: E11.65 Type 2 diabetes mellitus with hyperglycemia (principal)

== ENCOUNTER → 2022-10-22 12:25 | Outpatient (BNVA) | payer OTHER, SELFPAY | PROVIDERS: PCP Nurse Practitioner Primary Care; Visit Provider Registered Nurse Diabetes Educator | DX: E11.65 Type 2 diabetes mellitus with hyperglycemia (principal) | CPT/HCPCS: 99211 ==

== ENCOUNTER 2022-10-24 09:46 | Outpatient (AMB) | payer OTHER, SELFPAY ==
[2022-10-24 09:55] VITALS: BP 118/70; PULSE 86; TEMP 36.6; O2SAT 97; BMI 34.6
--- NOTE | 2022-10-24 09:55 | MHC.OFFVIS ---
Intake Vital Signs 10/24/22 09:55 Height 5 ft 4 in Weight 201 lb 11.567 oz BMI 34.6 BP 118/70 Blood Pressure Location Rt brachial Position Sitting Pulse 86 Pulse Source Pulse Oximeter Temp 97.9 F Temp Source Skin Pulse Oximetry (%) 97 Intake Visit Reasons: FM Intake Note: Pt seen today for FM follow up. 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 Name: Osmin # [id number] Accompanied by: Self / Same As Patient Allergies aspirin [Aspirin] Allergy (Mild, Verified 10/24/22 09:59) ITCHY THROAT azithromycin Allergy (Unknown, Verified 10/24/22 09:59) Unknown naproxen Allergy (Unknown, Verified 10/24/22 09:59) Unknown simvastatin Allergy (Unknown, Verified 10/24/22 09:59) Unknown Fish Containing Products Allergy (Verified 10/24/22 09:59) Swelling onion [ONION] Adverse Reaction (Mild, Verified 10/24/22 09:59) RED FACE Medication List - Last Reconciled 10/24/22 by Thi Aaron MD acetaminophen 325 mg PO PRN albuterol sulfate 90 mcg/actuation 2 puffs inhalation Q4-6H PRN benzonatate 100 mg PO TID PRN blood sugar diagnostic (FreeStyle Lite Strips) Check blood sugars 4x a day. blood-glucose meter ([employer] Flash System kit) As directed buspirone 7.5 mg PO BID calcium carbonate-vitamin D3 600 mg-10 mcg (400 unit) 1 tab PO BID clonazepam (Klonopin) 1 mg PO DAILY Combivent Respimat 20-100 mcg/actuation (ipratropium-albuterol) 1 puff inhalation QID NS dextrose 40% (Glutose-15) 15 grams PO DIRECTED diclofenac sodium 1% grams topical docusate sodium 100 mg PO BID 30 days flash glucose scanning reader ([employer] [place] 2 [place]) As directed fluoride (sodium) 1.1% (SF 5000 Plus) appl PO fluticasone propion-salmeterol 250-50 mcg/dose 1 ea inhalation BID 30 days gabapentin 400 mg PO BEDTIME insulin aspart (niacinamide) 100 unit/mL (3 mL) (Fiasp FlexTouch U-100 Insulin) 2 units before meals 3 times a day subcutaneously every morning; ipratropium-albuterol 0.5 mg-3 mg(2.5 mg base)/3 mL 3 mL inhalation Q6H PRN Lactobac. rhamnosus GG-inulin 10 billion cell -200 mg ([facility] [place] [facility]) 1 cap PO DAILY lancets (FreeStyle Lancets) check blood sugars 3 times a day leg brace (Knee Support Brace) As directed levofloxacin 750 mg PO DAILY 7 days levothyroxine 75 mcg PO QAM lidocaine 5% 1 patch topical DAILY metoclopramide HCl (Reglan) 10 mg PO .tidac montelukast 10 mg PO BEDTIME ekfzfwfqcwpv-inve-kwmzi acid 18-400 mg-mcg (Certavite-Antioxidant) 1 tab PO DAILY omeprazole 20 mg PO BID@0630,1630 peg 3350-electrolytes 236-22.74-6.74 -5.86 gram (Golytely) 240 mL PO Q10M 1 day pen needle, diabetic (UltiCare Pen Needle) USE FOUR TIMES DAILY plecanatide (Trulance) 3 mg PO DAILY 30 days potassium chloride ER 20 mEq PO BID pyridoxine (vitamin B6) 100 mg PO DAILY risperidone 0.5 mg PO BID semaglutide (Ozempic) 1 mg (0.75 mL) subcut QWEEK sennosides (senna) 17.2 mg (2 x 8.6 mg) PO BEDTIME tiotropium bromide (Spiriva with HandiHaler) 1 cap inhalation DAILY tramadol 50 mg PO BID PRN Xolair (omalizumab) 300 mg (2 mL) subcut Q2W NS zolpidem 10 mg PO BEDTIME PRN HPI HPI Comments History of Present Illness Details This is a 62-year-old female with fibromyalgia who presents for follow-up. 2 days ago she started having pain and crackling sensation on her left thumb. She stated that she lifted a heavy box and that might have caused it. She is doing well otherwise [facility] Medical History Renal calculi UTI (urinary tract infection) Allergic rhinitis Anxiety and depression Fibromyalgia HTN (hypertension) PTSD (post-traumatic stress disorder) Vertigo Diabetes Chest pain Spondylosis of cervical region without myelopathy or radiculopathy Bronchitis COPD exacerbation Low vitamin D level Non-toxic multinodular goiter Hypothyroidism DVT (deep venous thrombosis) Cocaine abuse Surgical History History of esophagogastroduodenoscopy (EGD) H/O colonoscopy with polypectomy History of selective injection of anesthetic agent around lumbar nerve root Hx of right breast biopsy History of hysterectomy History of lithotripsy Family History Father No problems noted. 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 Female Reproductive History Menstrual Age of Menarche: 10 Review of Systems Musc Reports arthralgias, Reports limited range of motion and Reports stiffness Physical Exam Vital Signs: Last Vital Signs Temp 97.9 F 10/24/22 09:55 Pulse 86 10/24/22 09:55 BP 118/70 10/24/22 09:55 Pulse Ox 97 10/24/22 09:55 BMI result Body Mass Index 34.6 Const General: cooperative, healthy appearing and comfortable Nutritional Appearance: obese Orientation/consciousness: patient oriented x3 Limitations: no limitations HEENT Head: Yes normocephalic and Yes atraumatic Mouth: moist mucous membranes Resp Effort & Inspection: normal respiratory effort and able to speak in complete sentences Neuro General: patient oriented x3 Extrem Other: Left thumb triggering and firm nodule at the base of the left thumb. Left 1st MCP tenderness Left 1st CMC tenderness and positive grind test with pain Assessment & Plan Assessment & Plan (1) Fibromyalgia: Code(s): M79.7 - Fibromyalgia Plan: Fibromyalgia overall stable. Continue current medications including gabapentin 400 mg at bedtime. Continue follow-up with mental health. (2) Osteoarthritis of first carpometacarpal (CMC) joint of one hand: Code(s): M18.9 - Osteoarthritis of first carpometacarpal joint, unspecified (3) Trigger finger of left thumb: Code(s): M65.312 - Trigger thumb, left thumb Plan: 62-year-old female fibromyalgia presents for evaluation. On exam she has left thumb triggering as well as left 1st CMC joint tenderness. Patient is refusing steroid injections as she was told that she had thrombophlebitis as a side effect to it in the past. Will refer patient to occupational therapy for trigger finger of the left thumb and left 1st CMC arthritis Plan I spent 25 minutes reviewing patient's chart, evaluating patient placing orders, counseling patient and documenting in the chart Orders: Orders OT Evaluation and Treatment Today M18.9 - Osteoarthritis of first carpometacarpal joint, unspecified, M65.312 - Trigger thumb, left thumb Coding Level of Care Code Est Pt Level 4 (83187) Diagnoses Fibromyalgia M79.7 Osteoarthritis of first carpometacarpal (CMC) joint of one hand M18.9 Trigger finger of left thumb M65.312
== END 2022-10-24 10:34 | disposition home or self-care (01) ==
PROVIDERS: PCP Nurse Practitioner Primary Care; Visit Provider Student in an Organized Health Care Education/Training Program
DX: M79.7 Fibromyalgia (principal); M18.9 Osteoarthritis of first carpometacarpal joint, unspecified; M65.312 Trigger thumb, left thumb
CPT/HCPCS: 99214

== ENCOUNTER → 2022-10-24 09:46 | Outpatient (BNVA) | payer OTHER, SELFPAY | PROVIDERS: PCP Nurse Practitioner Primary Care; Visit Provider Student in an Organized Health Care Education/Training Program | DX: M79.7 Fibromyalgia (principal); M65.312 Trigger thumb, left thumb; M18.12 Unilateral primary osteoarthritis of first carpometacarpal joint, left hand | CPT/HCPCS: 99212 ==

== ENCOUNTER 2022-10-29 14:02 | Outpatient (REF) | payer OTHER, SELFPAY ==
--- NOTE | ~2022-10-29 | XR_ITS ---
EXAMINATION: XR CHEST CLINICAL INFORMATION: COPD exacerbation COMPARISON: Previous x-ray most recent 10/20/2022 TECHNIQUE: 2 views of the chest were obtained. FINDINGS: The cardiac and mediastinal contours are stable. The thoracic aorta is tortuous. The lungs are clear. No pleural effusion or pneumothorax. There are degenerative changes of the spine. XR/XR chest 2V IMPRESSION: No evidence for acute disease in the chest.
== END 2022-10-29 14:03 | disposition home or self-care (01) ==
LOC: HO.HHCX 14:02
PROVIDERS: Visit Provider Family Medicine
DX: J44.1 Chronic obstructive pulmonary disease with (acute) exacerbation (principal)
CPT/HCPCS: 71046

== ENCOUNTER 2022-11-11 14:37 | Outpatient (REF) | payer OTHER, SELFPAY ==
--- NOTE | ~2022-11-11 | XR_ITS ---
EXAMINATION: XR HAND, LEFT CLINICAL INFORMATION: Pain COMPARISON: None available. TECHNIQUE: PA, lateral, and oblique views of the left hand. FINDINGS: No acute fracture or dislocation. Joint spaces are maintained. Soft tissues are unremarkable. XR/XR hand LT min 3V IMPRESSION: No acute osseous abnormality.
== END 2022-11-11 14:38 | disposition home or self-care (01) ==
LOC: HO.HHCX 14:37
PROVIDERS: Visit Provider Nurse Practitioner Primary Care
DX: M79.642 Pain in left hand (principal)
CPT/HCPCS: 73130

== ENCOUNTER 2022-11-12 14:58 | Outpatient (AMB) | payer OTHER, SELFPAY ==
[2022-11-12 14:59] VITALS: BP 112/76; PULSE 101; O2SAT 94; BMI 34.6
--- NOTE | 2022-11-12 14:59 | MHC.OFFVIS ---
Intake Vital Signs 11/12/22 14:59 Height 5 ft 4 in Weight 201 lb 11.567 oz BMI 34.6 BP 112/76 Blood Pressure Location Lt brachial Position Sitting Pulse 101 H Pulse Source Doppler Pulse Oximetry (%) 94 Oxygen Delivery Method Room Air Intake Visit Reasons: Asthma Allergies aspirin [Aspirin] Allergy (Mild, Verified 11/12/22 15:04) ITCHY THROAT azithromycin Allergy (Unknown, Verified 11/12/22 15:04) Unknown naproxen Allergy (Unknown, Verified 11/12/22 15:04) Unknown simvastatin Allergy (Unknown, Verified 11/12/22 15:04) Unknown Fish Containing Products Allergy (Verified 11/12/22 15:04) Swelling onion [ONION] Adverse Reaction (Mild, Verified 11/12/22 15:04) RED FACE HPI Asthma HPI Details 62-year-old lady, former 30+ pack-year smoker, quit 2014 followed for severe persistent allergic asthma/COPD overlap syndrome and environmental allergies. She continues on Wixela, Spiriva, albuterol MDI, and Xolair with good baseline symptomatic control of her symptoms at the baseline. Today she complains of an acute exacerbation symptomatic with wheezing and dyspnea. [facility] Medical History Renal calculi UTI (urinary tract infection) Allergic rhinitis Anxiety and depression Fibromyalgia HTN (hypertension) PTSD (post-traumatic stress disorder) Vertigo Diabetes Chest pain Spondylosis of cervical region without myelopathy or radiculopathy Bronchitis COPD exacerbation Low vitamin D level Non-toxic multinodular goiter Hypothyroidism DVT (deep venous thrombosis) Cocaine abuse Surgical History History of esophagogastroduodenoscopy (EGD) H/O colonoscopy with polypectomy History of selective injection of anesthetic agent around lumbar nerve root Hx of right breast biopsy History of hysterectomy History of lithotripsy Family History Father No problems noted. 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 Female Reproductive History Menstrual Age of Menarche: 10 Review of Systems Const Denies daytime sleepiness, Denies excessive sweating, Denies fatigue, Denies fever(s), Denies lethargy, Denies malaise, Denies night sweats, Denies snoring and Denies weight loss Eyes Denies blurry vision and Denies itchy eyes ENT Denies nasal congestion, Denies post nasal drip, Denies sinus pain, Denies sinus pressure and Denies other ( Thrush) Card Denies chest pain, Denies pedal edema, Reports dyspnea, Denies orthopnea and Denies paroxysmal nocturnal dyspnea Resp Denies cough, Denies hemoptysis, Denies excessive phlegm production, Reports dyspnea, Denies snoring and Reports wheezing GI Denies abdominal pain and Denies heartburn Musc Denies myalgias, Denies arthralgias and Denies joint swelling Skin/Breast Denies rash Neuro Denies memory loss and Denies seizure-like activity Psych Denies abnormal sleep pattern, Denies anxiety and Denies memory loss Endo Denies excessive sweating, Denies fatigue and Denies heat intolerance Bruno/Lymph Denies easy bruising Aller/Immun Denies itchy eyes, Denies seasonal rhinorrhea and Reports wheezing Physical Exam Vital Signs: Last Vital Signs Pulse 101 H 11/12/22 14:59 BP 112/76 11/12/22 14:59 Pulse Ox 94 11/12/22 14:59 Oxygen Delivery Method Room Air 11/12/22 14:59 BMI result Body Mass Index 34.6 Const General: no acute distress and alert Nutritional Appearance: not obese Orientation/consciousness: Other orientation findings ( oriented) HEENT Head: Yes atraumatic Eyes General: appearance normal, both eyes and all related structures Sclerae: sclerae normal EOM: EOMs intact bilaterally Neck Neck: Yes supple Lymphatic: no lymphadenopathy noted Resp Effort & Inspection: normal respiratory effort and no use of accessory muscles Auscultation: clear to auscultation bilaterally Cardio Rate: regular rate Rhythm: regular rhythm Heart sounds: no gallops, no murmurs and no rubs Skin General skin exam: other ( warm) Extrem General: No clubbing, No cyanosis and No edema Assessment & Plan Assessment & Plan (1) Severe persistent asthma: Code(s): J45.50 - Severe persistent asthma, uncomplicated Plan: Baseline controlled on Spiriva, Advair, Xolair, duo nebs, Combivent, and albuterol MDI. Continue current regimen. Now with an acute exacerbation, will treat with a brief prednisone course. (2) Environmental allergies: Code(s): Z91.09 - Other allergy status, other than to drugs and biological substances Plan: Well controlled on Xolair. Continue current regimen. Medications: New prednisone 40 mg (2 x 20 mg) PO DAILY 8 tabs 0RF 4 days Coding Level of Care Code Est Pt Level 4 (99819) Diagnoses Severe persistent asthma J45.50 Environmental allergies Z91.09
== END 2022-11-12 15:28 | disposition home or self-care (01) ==
PROVIDERS: PCP Nurse Practitioner Primary Care; Visit Provider Internal Medicine Pulmonary Disease
DX: J45.50 Severe persistent asthma, uncomplicated (principal); Z91.09 Other allergy status, other than to drugs and biological substances
CPT/HCPCS: 99214

== ENCOUNTER → 2022-11-12 14:58 | Outpatient (BNVA) | payer OTHER, SELFPAY | PROVIDERS: PCP Nurse Practitioner Primary Care; Visit Provider Internal Medicine Pulmonary Disease | DX: J45.50 Severe persistent asthma, uncomplicated (principal); Z91.09 Other allergy status, other than to drugs and biological substances | CPT/HCPCS: 99212 ==

== ENCOUNTER 2022-11-14 09:32 | Outpatient (REF) | payer OTHER, SELFPAY | END 2022-11-14 09:33 | disposition home or self-care (01) | LOC: HO.MDS 09:32 | PROVIDERS: Visit Provider Internal Medicine Pulmonary Disease | DX: J45.50 Severe persistent asthma, uncomplicated (principal) | CPT/HCPCS: 96372 ==

== ENCOUNTER 2022-11-18 15:25 | Emergency (ER) | payer OTHER, SELFPAY ==
--- NOTE | ~2022-11-18 | XR_ITS ---
EXAMINATION: XR CHEST CLINICAL INFORMATION: Cough and chest pain COMPARISON: 10/29/2022 TECHNIQUE: 2 views of the chest were obtained. FINDINGS: Lungs are clear cardiomediastinal silhouette revealed unfolded aorta. No evidence of infiltrates, nodules, pleural effusion, or pneumothorax. XR/XR chest 2V IMPRESSION: Stable examination
--- NOTE | 2022-11-18 15:26 | ECG_ITS ---
Test Reason : CHEST PAIN Blood Pressure : / mmHG Vent. Rate : 092 BPM Atrial Rate : 092 BPM P-R Int : 204 ms QRS Dur : 094 ms QT Int : 362 ms P-R-T Axes : 054 -51 036 degrees QTc Int : 447 ms Normal sinus rhythm Left anterior fascicular block Minimal voltage criteria for LVH, may be normal variant ( Bala product ) Abnormal ECG When compared with ECG of 20-OCT-2022 11:59, [place] interval has decreased Referred By: Joanie Bryant Electronically Signed By:GERARDO VASQUES
[2022-11-18 15:54] VITALS: BP 112/68; PULSE 93; RESP 18; TEMP 36.4; O2SAT 95; BMI 34.5
--- NOTE | 2022-11-18 15:59 | ED_ITS ---
HPI - General Adult General Chief complaint: Chest Pain Stated complaint: chest pain Related Data Home Medications Medication Instructions Recorded Confirmed calcium carbonate 600 mg-vitamin 1 tab PO BID 11/20/19 05/30/22 D3 10 mcg (400 unit) tablet potassium chloride 20 mEq 20 meq PO BID 11/20/19 05/30/22 tablet,extended release(part/cryst) risperidone 0.5 mg tablet 0.5 mg PO BID 11/20/19 05/30/22 zolpidem 10 mg tablet 10 mg PO BEDTIME PRN Insomnia 11/20/19 05/30/22 clonazepam 1 mg tablet (Klonopin) 1 mg PO DAILY 03/08/20 05/30/22 montelukast 10 mg tablet 10 mg PO BEDTIME 03/08/20 05/30/22 ipratropium 0.5 mg-albuterol 3 mg 3 ml inhalation Q6H PRN 07/06/21 05/30/22 (2.5 mg base)/3 mL nebulization Respiratory Distress soln multivitamin-ferrous 1 tab PO DAILY 07/06/21 05/30/22 fumarate-folic acid 18 mg-400 mcg tablet (Certavite-Antioxidant) fluoride (sodium) 1.1 % dental appl PO 10/16/21 05/30/22 cream (SF 5000 Plus) buspirone 7.5 mg tablet 7.5 mg PO BID 01/31/22 05/30/22 tramadol 50 mg tablet 50 mg PO BID PRN 01/31/22 05/30/22 diclofenac sodium 1 % topical gel g topical 05/07/22 05/30/22 acetaminophen 325 mg tablet 325 mg PO PRN pain 06/11/22 Previous Rx's Medication Instructions Recorded leg brace (Knee Support Brace) #2 ea 03/08/20 blood-glucose meter (FreeStyle #1 ea 02/28/22 Flash System kit) pyridoxine (vitamin B6) 100 mg 100 mg PO DAILY #90 tabs 04/05/22 tablet levothyroxine 75 mcg tablet 75 mcg PO QAM #90 tabs 04/11/22 benzonatate 100 mg capsule 100 mg PO TID PRN cough #30 caps 05/10/22 docusate sodium 100 mg capsule 100 mg PO BID 30 days #60 caps 06/11/22 blood sugar diagnostic (FreeStyle #100 ea 07/16/22 Lite Strips) lancets 28 gauge (FreeStyle #100 ea 07/16/22 Lancets) Lactobacil rhamnosus GG 10 billion 1 cap PO DAILY #30 caps 07/30/22 cell-inulin 200 mg sprinkle capsule ([facility] Fast PCR Diagnostics [facility]) dextrose 40 % oral gel (Glutose-15) 15 g PO DIRECTED for 08/13/22 hypoglycemia #112.5 grams gabapentin 400 mg capsule 400 mg PO BEDTIME #30 caps 08/19/22 Xolair 150 mg/mL subcutaneous 300 mg (2 mL) subcut Q2W #4 mL 09/03/22 syringe (omalizumab) semaglutide 1 mg/dose (4 mg/3 mL) 1 mg (0.75 mL) subcut QWEEK #3 mL 09/04/22 subcutaneous pen injector (Ozempic) metoclopramide HCl 10 mg tablet 10 mg PO .tidac #90 tabs 09/10/22 (Reglan) omeprazole 20 mg capsule,delayed 20 mg PO BID@0630,1630 #60 caps 09/10/22 release peg 3350-electrolytes 236 240 ml PO Q10M 1 day #4,000 mL 09/10/22 gram-22.74 gram-6.74 gram-5.86 gram solution (Golytely) plecanatide 3 mg tablet (Trulance) 3 mg PO DAILY 30 days #30 tabs 09/10/22 sennosides 8.6 mg tablet (senna) 17.2 mg (2 x 8.6 mg) PO BEDTIME 09/10/22 constipation #60 tabs pen needle, diabetic 32 gauge x ##100 10/01/22/32 (UltiCare Pen Needle) albuterol sulfate 90 mcg/actuation 2 puff inhalation Q4-6H PRN 10/02/22 aerosol inhaler shortness of breath or wheezing #6.7 grams fluticasone 250 mcg-salmeterol 50 1 ea inhalation BID 30 days #60 ea 10/02/22 mcg/dose blistr powdr for inhalation tiotropium bromide 18 mcg capsule 1 cap inhalation DAILY #30 caps 10/02/22 with inhalation device (Spiriva with HandiHaler) levofloxacin 750 mg tablet 750 mg PO DAILY 7 days #7 tabs 10/16/22 lidocaine 5 % topical patch 1 patch topical DAILY #15 ea 10/20/22 insulin aspart See Rx Instructions subcut QAM #15 10/29/22 (niacinamide)(U-100) 100 unit/mL(3 mL mL) subcutaneous pen (Fiasp FlexTouch U-100 Insulin) prednisone 20 mg tablet 40 mg (2 x 20 mg) PO DAILY 4 days 11/12/22 #8 tabs ipratropium 20 mcg-albuterol 100 1 puff PO QID #4 grams 11/15/22 mcg/actuation mist for inhalation (Combivent Respimat) flash glucose scanning reader #1 ea 11/28/22 (FreeStyle Jalil 2 [place]) flash glucose sensor (FreeStyle #2 ea 11/28/22 Jalil 2 Sensor kit) Allergies Allergy/AdvReac Type Severity Reaction Status Date / Time aspirin [Aspirin] Allergy Mild ITCHY Verified 11/12/22 15:04 THROAT azithromycin Allergy Unknown Unknown Verified 11/12/22 15:04 naproxen Allergy Unknown Unknown Verified 11/12/22 15:04 simvastatin Allergy Unknown Unknown Verified 11/12/22 15:04 Fish Containing Products Allergy Swelling Verified 11/12/22 15:04 onion [ONION] AdvReac Mild RED FACE Verified 11/12/22 15:04 [facility] Past Medical History Medical History Renal calculi UTI (urinary tract infection) Allergic rhinitis Anxiety and depression Fibromyalgia HTN (hypertension) PTSD (post-traumatic stress disorder) Vertigo Diabetes Chest pain Spondylosis of cervical region without myelopathy or radiculopathy Bronchitis COPD exacerbation Low vitamin D level Non-toxic multinodular goiter Hypothyroidism DVT (deep venous thrombosis) Cocaine abuse Surgical History History of esophagogastroduodenoscopy (EGD) H/O colonoscopy with polypectomy History of selective injection of anesthetic agent around lumbar nerve root Hx of right breast biopsy History of hysterectomy History of lithotripsy Family History Family History Father No problems noted. 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 This is a 62-year-old female with history of DM, COPD, DVT, HTN, fibromyalgia, hypothyroidism, PTSD presenting to the emergency department with a complaint of chest pain and productive cough. Patient reports that she was seen 2 weeks ago and was given a prescription for antibiotics and prednisone which she is taking without any relief. Patient becoming upset with questions being asked in triage. Vital signs stable. Plan: Labs, EKG, chest x-ray, viral swabs pt eloped prior to being fully evaluated by primary provider. Medical Decision Making Lab Data 11/18/22 16:14 11/18/22 16:14 Labs: Lab Results 11/18/22 Range/Units 16:14 WBC 9.3 (4.8-10.8) X10*3/uL RBC 4.49 (4.20-5.50) X10*6/uL Hgb 14.1 (12.0-16.0) g/dl Hct 41.9 (37.0-47.0) % MCV 93.3 (80.0-98.0) fL MCH 31.4 (27.0-33.0) pg MCHC 33.7 (31.0-35.0) g/dl RDW 13.2 (11.0-16.0) % Plt Count 276 (160-400) X10*3/uL MPV 9.3 L (9.4-12.3) fL Immature Gran % (Auto) 0.3 (0.0-0.4) % Neut % (Auto) 53.1 (45-73) % Lymph % (Auto) 39.2 (20-40) % [place] % (Auto) 5.3 (2-11) % Eos % (Auto) 1.7 (0-4) % Baso % (Auto) 0.4 (0-2) % Lymph # (Auto) 3.7 (1.2-4.9) X10*3/uL [place] # (Auto) 0.5 (0.1-1.2) X10*3/uL Eos # (Auto) 0.2 (0.0-0.4) X10*3/uL Baso # (Auto) 0.0 (0.0-0.2) X10*3/uL Abs Immat Gran (auto) 0.03 (0.00-0.03) X10*3/uL Absolute Neuts (auto) 4.9 (2.0-8.3) x10*3/uL Absolute Nucleated RBC 0.000 (0.0-0.012) X10*3/uL Nucleated RBC % (auto) 0.0 (0.0-0.2) /100WBC Sodium 141 (135-145) mmol/L Potassium 4.0 (3.3-5.1) mmol/L Chloride 111 H (96-108) mmol/L Carbon Dioxide 20 L (22-29) mmol/L Anion Gap 14 (12-20) BUN 26 H (9-16) mg/dL Creatinine 0.87 (0.5-1.4) mg/dL Estim Creat Clear Calc 73.3 Estimated GFR > 60 Random Glucose 151 H (60-115) mg/dL Calcium 9.2 (8.4-10.2) mg/dL Total Bilirubin 0.3 (0.0-1.0) mg/dL Direct Bilirubin 0.1 (0.0-0.5) mg/dL AST 24 (5-31) U/L ALT 28 (0-31) U/L Alkaline Phosphatase 78 (39-117) U/L Troponin I High Sens < 2.7 (<3.5-17.0) ng/L Total Protein 7.0 (6.5-8.0) g/dL Albumin 4.1 (3.5-5.0) g/dL Influenza Type A (PCR) NEGATIVE (Negative) Influenza Type B (PCR) NEGATIVE (Negative) RSV RNA Qual (PCR) NEGATIVE (Negative) SARS-CoV-2 RNA (RT-PCR) NEGATIVE (Negative) Discharge Plan Discharge Clinical Impression: Cough Patient Disposition: Left W/O Completing Treatment Prescriptions: No Action (DME) blood-glucose meter [Mad MimiStyle Flash System] Kit See Rx Instructions .Route Qty: 1 0RF Rx Instructions: As directed levothyroxine 75 mcg tablet 75 mcg PO QAM Qty: 90 4RF (DME) FreeStyle Lite Strips Strip See Rx Instructions .Route Qty: 100 5RF Rx Instructions: Check blood sugars 4x a day. (DME) lancets [FreeStyle Lancets] 28 gauge misc See Rx Instructions .Route Qty: 100 5RF Rx Instructions: check blood sugars 3 times a day [facility] [employer] 10 billion cell -200 mg capsule, sprinkle 1 cap PO DAILY Qty: 30 6RF dextrose [Glutose-15] 40 % gel 15 g PO DIRECTED Qty: 112.5 5RF gabapentin 400 mg capsule 400 mg PO BEDTIME Qty: 30 4RF Xolair 150 mg/mL syringe 300 mg subcut Q2W Qty: 4 11RF (DME) pen needle, diabetic [UltiCare Pen Needle] 32 gauge x 5/ needle See Rx Instructions .ROUTE .COMPLEX Qty: 100 5RF Dose Instruction: USE FOUR TIMES DAILY Rx Instructions: USE FOUR TIMES DAILY Spiriva with HandiHaler 18 mcg capsule, w/inhalation device 1 cap inhalation DAILY Qty: 30 6RF albuterol sulfate 90 mcg/actuation HFA aerosol inhaler 2 puff inhalation Q4-6H PRN (Reason: shortness of breath or wheezing) Qty: 6.7 6RF fluticasone propion-salmeterol 250-50 mcg/dose blister with device 1 ea inhalation BID 30 Days Qty: 60 6RF levofloxacin 750 mg tablet 750 mg PO DAILY 7 Days Qty: 7 0RF Fiasp FlexTouch U-100 Insulin 100 unit/mL (3 mL) insulin pen See Rx Instructions subcut QAM Qty: 15 4RF Rx Instructions: 2 units before meals 3 times a day subcutaneously every morning; Combivent Respimat 20-100 mcg/actuation mist 1 puff PO QID Qty: 4 0RF (DME) FreeStyle Jalil 2 [place] Misc See Rx Instructions .Route Qty: 1 0RF Rx Instructions: As directed (DME) FreeStyle Jalil 2 Sensor Kit See Rx Instructions .Route Qty: 2 4RF Rx Instructions: As directed change every 14 days ipratropium-albuterol 0.5 mg-3 mg(2.5 mg base)/3 mL Solution For Nebulization 3 ml INHALATION Q6H PRN (Reason: Respiratory Distress) Certavite-Antioxidant 18-400 mg-mcg Tablet 1 tab PO DAILY benzonatate 100 mg capsule 100 mg PO TID PRN (Reason: cough) Qty: 30 0RF lidocaine 5 % adhesive patch,medicated 1 patch topical DAILY Qty: 15 0RF Rx Instructions: leave on most painful area for up to 12 hrs montelukast 10 mg tablet 10 mg PO BEDTIME clonazepam [Klonopin] 1 mg tablet 1 mg PO DAILY Rx Instructions: administer 30 minutes before bedtime (DME) Knee Support Brace Misc See Rx Instructions .ROUTE .MEDSUPPLY Qty: 2 0RF Rx Instructions: As directed zolpidem 10 mg tablet 10 mg PO BEDTIME PRN (Reason: Insomnia) risperidone 0.5 mg tablet 0.5 mg PO BID calcium carbonate-vitamin D3 600 mg(1,500mg) -400 unit tablet 1 tab PO BID potassium chloride 20 mEq tablet,ER particles/crystals 20 meq PO BID pyridoxine (vitamin B6) 100 mg tablet 100 mg PO DAILY Qty: 90 3RF acetaminophen 325 mg tablet 325 mg PO PRN (Reason: pain) fluoride (sodium) [SF 5000 Plus] 1.1 % cream PO buspirone 7.5 mg tablet 7.5 mg PO BID tramadol 50 mg tablet 50 mg PO BID PRN docusate sodium 100 mg capsule 100 mg PO BID 30 Days Qty: 60 6RF diclofenac sodium 1 % gel topical Ozempic 1 mg/dose (4 mg/3 mL) pen injector 1 mg subcut QWEEK Qty: 3 4RF prednisone 20 mg tablet 40 mg PO DAILY 4 Days Qty: 8 0RF peg 3350-electrolytes [Golytely] 236-22.74-6.74 -5.86 gram recon soln 240 ml PO Q10M 1 Days Qty: 4000 0RF Rx Instructions: until fecal effluent is clear; do not exceed a total volume of 2,000 mL Trulance 3 mg tablet 3 mg PO DAILY 30 Days Qty: 30 6RF Rx Instructions: Take one tablet by mouth once a day sennosides [senna] 8.6 mg tablet 17.2 mg PO BEDTIME Qty: 60 6RF omeprazole 20 mg capsule,delayed release(DR/EC) 20 mg PO BID@0630,1630 Qty: 60 6RF metoclopramide HCl [Reglan] 10 mg tablet 10 mg PO .tidac Qty: 90 6RF Discharge Date/Time: 11/18/22 19:59
[2022-11-18 16:27] LABS: MANUAL DIFF FLAG NO
[2022-11-18 16:33] LABS: Basophils Percent Auto 0.4 % (0-2); Eosinophils Absolute Auto 0.2 X10*3/uL (0.0-0.4); Eosinophils Percent Auto 1.7 % (0-4); Hematocrit 41.9 % (37.0-47.0); Hemoglobin 14.1 g/dl (12.0-16.0); Imm Gran Abs Auto 0.03 X10*3/uL (0.00-0.03); Imm Gran Pct Auto 0.3 % (0.0-0.4); Lymphocytes Absolute Auto 3.7 X10*3/uL (1.2-4.9); Lymphocytes Percent Auto 39.2 % (20-40); Mean Corpuscular HGB Conc 33.7 g/dl (31.0-35.0); Mean Corpuscular Hemoglobin 31.4 pg (27.0-33.0); Mean Corpuscular Volume 93.3 fL (80.0-98.0); Mean Platelet Volume 9.3 fL (9.4-12.3); Monocytes Absolute Auto 0.5 X10*3/uL (0.1-1.2); Monocytes Percent Auto 5.3 % (2-11); Neutrophils Absolute Auto 4.9 x10*3/uL (2.0-8.3); Neutrophils Percent Auto 53.1 % (45-73); Platelet Count 276 X10*3/uL (160-400); Red Blood Count 4.49 X10*6/uL (4.20-5.50); Red Cell Distribution Width 13.2 % (11.0-16.0); White Blood Count 9.3 X10*3/uL (4.8-10.8)
[2022-11-18 16:47] LABS: Alanine Aminotransferase 28 U/L (0-31); Albumin Level 4.1 g/dL (3.5-5.0); Alkaline Phosphatase 78 U/L (39-117); Anion Gap 14 (12-20); Aspartate Amino Transferase 24 U/L (5-31); Bilirubin Direct 0.1 mg/dL (0.0-0.5); Bilirubin Total 0.3 mg/dL (0.0-1.0); Blood Urea Nitrogen 26 mg/dL (9-16); Calcium 9.2 mg/dL (8.4-10.2); Carbon Dioxide 20 mmol/L (22-29); Chloride 111 mmol/L (96-108); Creatinine Clr Calc Pharmacy 73.3; Estimated Glomerular Filt Rate > 60; Glucose Random 151 mg/dL (60-115); Sodium 141 mmol/L (135-145)
[2022-11-18 16:57] LABS: Troponin-I High Sensitivity < 2.7 ng/L (<3.5-17.0)
[2022-11-18 17:08] LABS: Influenza A PCR NEGATIVE (Negative); Influenza B PCR NEGATIVE (Negative); Resp Syncy Virus RNA Qual PCR NEGATIVE (Negative); SARS COV2 PCR INHOUSE NEGATIVE (Negative)
== END 2022-11-18 19:59 | disposition left against medical advice (07) ==
PROVIDERS: Physician Assistant Medical; Emergency Provider Emergency Medicine; PCP Nurse Practitioner Primary Care
DX: R07.89 Other chest pain (principal); R05.9 Cough, unspecified; Z20.822 Contact with and (suspected) exposure to COVID-19; Z20.828 Contact with and (suspected) exposure to other viral communicable diseases; Z79.899 Other long term (current) drug therapy
CPT/HCPCS: 0241U; 71046; 80048; 80076; 84484; 85025; 93005; 99283

== ENCOUNTER 2022-11-19 11:21 | Outpatient (AMB) | payer OTHER, SELFPAY ==
[2022-11-19 11:32] VITALS: BMI 35.0
--- NOTE | 2022-11-19 11:32 | MHC.AMNUTRGE ---
Intake VS Expanded 11/19/22 11:32 Height 5 ft 4 in Weight 203 lb 11.314 oz BMI 35.0 Intake Visit Reasons: DM/CONFIRMED Allergies aspirin [Aspirin] Allergy (Mild, Verified 11/12/22 15:04) ITCHY THROAT azithromycin Allergy (Unknown, Verified 11/12/22 15:04) Unknown naproxen Allergy (Unknown, Verified 11/12/22 15:04) Unknown simvastatin Allergy (Unknown, Verified 11/12/22 15:04) Unknown Fish Containing Products Allergy (Verified 11/12/22 15:04) Swelling onion [ONION] Adverse Reaction (Mild, Verified 11/12/22 15:04) RED FACE HPI Nutrition Presentation Details Pt presents for MNT for T2DM. Pt reports doing well. Pt reports increased appetite due to anxiety. She reports following up with mental health care provider. food frequency fried foods : 4 -5 times/wk dairy: whole milk , cheese fruits: 0-1/d protein foods: poultry, beef, eggs, has fish allergy starches > 20 servings vegetables: not including pastries an the like: daily physical activity: walks daily, reports never stays still water: 2-3 cups/d, mostly juices, diet soda ETOH/SMoking: denies Most Recent Diabetes Results: Creatinine 0.87 mg/dL (0.5-1.4) 11/18/22 Blood Urea Nitrogen 26 mg/dL (9-16) H 11/18/22 Sodium 141 mmol/L (135-145) 11/18/22 Potassium 4.0 mmol/L (3.3-5.1) 11/18/22 Chloride 111 mmol/L (96-108) H 11/18/22 Carbon Dioxide 20 mmol/L (22-29) L 11/18/22 Calcium 9.2 mg/dL (8.4-10.2) 11/18/22 AST 24 U/L (5-31) 11/18/22 ALT 28 U/L (0-31) 11/18/22 Total Protein 7.0 g/dL (6.5-8.0) 11/18/22 Albumin 4.1 g/dL (3.5-5.0) 11/18/22 [facility] Medical History Renal calculi UTI (urinary tract infection) Allergic rhinitis Anxiety and depression Fibromyalgia HTN (hypertension) PTSD (post-traumatic stress disorder) Vertigo Diabetes Chest pain Spondylosis of cervical region without myelopathy or radiculopathy Bronchitis COPD exacerbation Low vitamin D level Non-toxic multinodular goiter Hypothyroidism DVT (deep venous thrombosis) Cocaine abuse Surgical History History of esophagogastroduodenoscopy (EGD) H/O colonoscopy with polypectomy History of selective injection of anesthetic agent around lumbar nerve root Hx of right breast biopsy History of hysterectomy History of lithotripsy Family History Father No problems noted. 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 use: without intermodal truck driver use Qualified Code(s): E11.65 - Type 2 diabetes mellitus with hyperglycemia Plan: Discuss Increasing fiber intake, reducing portions of starches/higher fat foods EST Kcal NEEDS as per [place] St Jeor: 1505 USED ADJUSTED BODY WT 71 kg est protein needs as per 0.8-1.0 g/kg bw: 57-71 g/d est fluid needs as per 25 ml/kg bw: 1775 ml/d Rec fiber: increase to 8-10 g per day and gradually increase to 25 g/d as tolerated Rec Na: < 2000 mg /d Educate patient on: (R= Reviewed, V = verbalizes understanding N/R= Needs review N/A= not applicable) Food sources of carbohydrates and serving adequate serving sizes : R V Difference between complex carbohydrates and simple carbohydrates, role of fiber: R V Differences between fats (MUFA/PUFA/saturated fats, trans fats) and food sources of various fats: R V Food sources of sodium and salt and healthy modifications for heart health and kidney health: N/R Vitamins and minerals: v How to interpret food labels: R V Healthy Plate method concept: R V Physical activity: benefits and precaution: R V REINFORCED nutrition concepts related to increased weight gain and importance of reducing total calories from fats and carbs at meal times and snacks for weight loss Plan Patient Instructions: Make a routine of having a fruit in place of pastries, aim at 2 fruits a day (ok canned, ok frozen , ok fresh) Drink water with meals and snacks cook meats/poultry in its own fat , do not add additional fat/oils , ok to add vinegar, lemon, water , herbs, seseaonings Coding Level of Care Code Nutr Indiv Subseq (29431) Diagnoses Type 2 diabetes mellitus with hyperglycemia, without long-term current use of insulin E11.65 Diabetes mellitus half-way insulin use: without half-way use Time Spent (min) 20
== END 2022-11-19 11:53 | disposition home or self-care (01) ==
PROVIDERS: PCP Nurse Practitioner Primary Care; Visit Provider Dietitian, Registered
DX: E11.65 Type 2 diabetes mellitus with hyperglycemia (principal)

== ENCOUNTER → 2022-11-19 11:21 | Outpatient (BNVA) | payer OTHER, SELFPAY | PROVIDERS: PCP Nurse Practitioner Primary Care; Visit Provider Dietitian, Registered | DX: E11.65 Type 2 diabetes mellitus with hyperglycemia (principal); Z71.3 Dietary counseling and surveillance | CPT/HCPCS: 97803 ==

== ENCOUNTER 2022-11-28 09:05 | Outpatient (REF) | payer OTHER, SELFPAY | END 2022-11-28 09:06 | disposition home or self-care (01) | LOC: HO.MDS 09:05 | PROVIDERS: Visit Provider Internal Medicine Pulmonary Disease | DX: J45.50 Severe persistent asthma, uncomplicated (principal) | CPT/HCPCS: 96372 ==

== ENCOUNTER 2022-12-10 10:33 | Outpatient (AMB) | payer OTHER, SELFPAY ==
--- NOTE | 2022-12-10 11:51 | A.OFFVIS_ITS ---
Intake Vital Signs 12/10/22 11:52 Height 5 ft 4 in Weight 197 lb 15.602 oz BMI 34.0 BP 122/72 Blood Pressure Location Rt brachial Position Sitting Pulse 85 Pulse Source Pulse Oximeter Temp 97.7 F Temp Source Skin Pulse Oximetry (%) 97 Intake Visit Reasons: CORTISONE INJECTION Intake Note: Patient presents for left thumb cortisone injection. Pt wears a cgm- in office blood glucose 109 Home Care Music Therapist Required: Yes Home Care Music Therapist Name: Nuvia Griffith Accompanied by: Self / Same As Patient Allergies aspirin [Aspirin] Allergy (Mild, Verified 12/10/22 11:57) ITCHY THROAT azithromycin Allergy (Unknown, Verified 12/10/22 11:57) Unknown naproxen Allergy (Unknown, Verified 12/10/22 11:57) Unknown simvastatin Allergy (Unknown, Verified 12/10/22 11:57) Unknown Fish Containing Products Allergy (Verified 12/10/22 11:57) Swelling onion [ONION] Adverse Reaction (Mild, Verified 12/10/22 11:57) RED FACE Medication List - Last Reconciled 12/10/22 by Thi Aaron MD acetaminophen 325 mg PO PRN albuterol sulfate 90 mcg/actuation 2 puffs inhalation Q4-6H PRN benzonatate 100 mg PO TID PRN blood sugar diagnostic (FreeStyle Lite Strips) TEST BLOOD SUGAR 4 TIMES A DAY blood-glucose meter (FreeStyle Flash System kit) As directed buspirone 7.5 mg PO BID calcium carbonate-vitamin D3 600 mg-10 mcg (400 unit) 1 tab PO BID clonazepam (Klonopin) 1 mg PO DAILY dextrose 40% (Glutose-15) 15 grams PO DIRECTED diclofenac sodium 1% grams topical docusate sodium 100 mg PO BID 30 days flash glucose scanning reader (FreeStyle Jalil 2 [place]) As directed flash glucose sensor (FreeStyle Jalil 2 Sensor kit) As directed change every 14 days fluoride (sodium) 1.1% (SF 5000 Plus) appl PO fluticasone propion-salmeterol 250-50 mcg/dose 1 ea inhalation BID 30 days gabapentin 400 mg PO BEDTIME insulin aspart (niacinamide) 100 unit/mL (3 mL) (Fiasp FlexTouch U-100 Insulin) 2 units before meals 3 times a day subcutaneously every morning; ipratropium-albuterol 0.5 mg-3 mg(2.5 mg base)/3 mL 3 mL inhalation Q6H PRN ipratropium-albuterol 20-100 mcg/actuation (Combivent Respimat) 1 puff PO QID Lactobac. rhamnosus GG-inulin 10 billion cell -200 mg ([facility]) 1 cap PO DAILY lancets (Easy Touch Twist Lancets) TEST BLOOD SUGAR 4 TIMES A DAY leg brace (Knee Support Brace) As directed levofloxacin 750 mg PO DAILY 7 days levothyroxine 75 mcg PO QAM lidocaine 5% 1 patch topical DAILY metoclopramide HCl (Reglan) 10 mg PO .tidac montelukast 10 mg PO BEDTIME [id number] acid 18-400 mg-mcg (Certavite-Antioxidant) 1 tab PO DAILY omeprazole 20 mg PO BID@0630,1630 peg 3350-electrolytes 236-22.74-6.74 -5.86 gram (Golytely) 240 mL PO Q10M 1 day pen needle, diabetic (UltiCare Pen Needle) USE FOUR TIMES DAILY plecanatide (Trulance) 3 mg PO DAILY 30 days potassium chloride ER 20 mEq PO BID prednisone 40 mg (2 x 20 mg) PO DAILY 4 days pyridoxine (vitamin B6) 100 mg PO DAILY risperidone 0.5 mg PO BID semaglutide (Ozempic) 1 mg (0.75 mL) subcut QWEEK sennosides (senna) 17.2 mg (2 x 8.6 mg) PO BEDTIME tiotropium bromide (Spiriva with HandiHaler) 1 cap inhalation DAILY tramadol 50 mg PO BID PRN Xolair (omalizumab) 300 mg (2 mL) subcut Q2W NS zolpidem 10 mg PO BEDTIME PRN HPI HPI Comments History of Present Illness Details 62-year-old female with left thumb gregoria er finger presents for injection. Her blood sugar today is 109 PFSH Medical History Renal calculi UTI (urinary tract infection) Allergic rhinitis Anxiety and depression Fibromyalgia HTN (hypertension) PTSD (post-traumatic stress disorder) Vertigo Diabetes Chest pain Spondylosis of cervical region without myelopathy or radiculopathy Bronchitis COPD exacerbation Low vitamin D level Non-toxic multinodular goiter Hypothyroidism DVT (deep venous thrombosis) Cocaine abuse Surgical History History of esophagogastroduodenoscopy (EGD) H/O colonoscopy with polypectomy History of selective injection of anesthetic agent around lumbar nerve root Hx of right breast biopsy History of hysterectomy History of lithotripsy Family History Father No problems noted. 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 Female Reproductive History Menstrual Age of Menarche: 10 Review of Systems Musc Reports arthralgias, Reports limited range of motion and Reports stiffness Physical Exam Vital Signs: Last Vital Signs Temp 97.7 F 12/10/22 11:52 Pulse 85 12/10/22 11:52 BP 122/72 12/10/22 11:52 Pulse Ox 97 12/10/22 11:52 BMI result Body Mass Index 34.0 Const General: cooperative, healthy appearing and comfortable Nutritional Appearance: obese Orientation/consciousness: patient oriented x3 Limitations: no limitations HEENT Head: Yes normocephalic and Yes atraumatic Resp Effort & Inspection: normal respiratory effort and able to speak in complete sentences Neuro General: patient oriented x3 Extrem Other: Left thumb triggering and firm nodule at the base of the left thumb. Office Procedures Tendon Injection Tendon Injection Details: The palm of the left hand was prepped with ChloraPrep and alcohol. Under topical ethyl chloride spray the [1st] flexor tendon sheath was injected with 20 mg of triamcinolone and 0.1 cc of 1% lidocaine. The patient tolerated the procedure without any acute complications. [id number] Tendon Sheath Injection All charges added?: Procedure code (CPT) selection complete Assessment & Plan Assessment & Plan (1) Trigger finger of left thumb: Code(s): M65.312 - Trigger thumb, left thumb Plan: With patient's consent, Left thumb trigger finger injected with Kenalog today. Follow-up as needed Plan I spent 15 minutes reviewing patient's chart, evaluating patient, counseling patient and documenting in the chart Orders: Orders AMB Injection-Tendon Today M65.312 - Trigger thumb, left thumb Coding Level of Care Code Est Pt Level 3 (60289) Diagnoses Trigger finger of left thumb M65.312 CPT Codes Tendon Injection - Tendon Injection 1: [id number] Tendon Sheath Injection ([id number])
[2022-12-10 11:52] VITALS: BP 122/72; PULSE 85; TEMP 36.5; O2SAT 97; BMI 34.0
== END 2022-12-10 12:25 | disposition home or self-care (01) ==
PROVIDERS: PCP Nurse Practitioner Primary Care; Visit Provider Student in an Organized Health Care Education/Training Program
DX: M65.312 Trigger thumb, left thumb (principal)
CPT/HCPCS: 20550

== ENCOUNTER → 2022-12-10 10:33 | Outpatient (BNVA) | payer OTHER, SELFPAY | PROVIDERS: PCP Nurse Practitioner Primary Care; Visit Provider Student in an Organized Health Care Education/Training Program | DX: M65.312 Trigger thumb, left thumb (principal) | CPT/HCPCS: 20550 ==

== ENCOUNTER 2022-12-11 12:50 | Outpatient (AMB) | payer OTHER, SELFPAY ==
[2022-12-11 13:35] VITALS: BMI 33.3
--- NOTE | 2022-12-11 13:35 | MHC.OFFVIS ---
Intake Vital Signs 12/11/22 13:35 Height 5 ft 4 in Weight 194 lb BMI 33.3 Intake Visit Reasons: Lt hand trigger Intake Note: right hand dominant , presents today for a new problem, states she has left thumb locking and catching for the last 2 months. Seen with her rhumatologist yesterday who injected her for a trigger finger. States she is interested in surgery. Hx of rt hand CTR Allergies aspirin [Aspirin] Allergy (Mild, Verified 12/11/22 13:51) ITCHY THROAT azithromycin Allergy (Unknown, Verified 12/11/22 13:51) Unknown naproxen Allergy (Unknown, Verified 12/11/22 13:51) Unknown simvastatin Allergy (Unknown, Verified 12/11/22 13:51) Unknown Fish Containing Products Allergy (Verified 12/11/22 13:51) Swelling onion [ONION] Adverse Reaction (Mild, Verified 12/11/22 13:51) RED FACE HPI Lt hand trigger HPI Details Nuvia is a 62 year old right hand dominant Cypriot speaking woman who presents with complaints of painful left thumb locking. She complains of locking of her left thumb, which has been present for ~2 months. She follows with Rheumatology, and received a trigger thumb injection yesterday, on 12/10/22. She was upset with this injection as it made her pain worse. She would like to discuss surgery for this. She says her right hand sensation is normal and she is happy with the results of her surgery She is a Diabetic and has a hx of Fibromyalgia [facility] Medical History Renal calculi UTI (urinary tract infection) Allergic rhinitis Anxiety and depression Fibromyalgia HTN (hypertension) PTSD (post-traumatic stress disorder) Vertigo Diabetes Chest pain Spondylosis of cervical region without myelopathy or radiculopathy Bronchitis COPD exacerbation Low vitamin D level Non-toxic multinodular goiter Hypothyroidism DVT (deep venous thrombosis) Cocaine abuse Surgical History History of esophagogastroduodenoscopy (EGD) H/O colonoscopy with polypectomy History of selective injection of anesthetic agent around lumbar nerve root Hx of right breast biopsy History of hysterectomy History of lithotripsy Family History Father No problems noted. 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 Female Reproductive History Menstrual Age of Menarche: 10 Review of Systems Const All systems reviewed & are unremarkable except as noted in HPI and below Physical Exam Vital Signs: BMI result Body Mass Index 33.3 Const General: no acute distress and alert Orientation/consciousness: patient oriented x3 Neuro General: patient oriented x3 Extrem Other: Evaluation of Left Upper Extremity: The patient is alert, oriented, and in no acute distress Neuro: Median, Ulnar, Radial nerves motor and sensory intact and sensation is normal to the tips of all digits Vascular: Cap refill brisk ROM: She can make a fist and extend all her digits She has visible palpable locking and catching of the left thumb. She is tender over the A1 amalia of the left thumb Psych Appearance: grossly normal Affect: normal affect Attitude: cooperative Assessment & Plan Assessment & Plan (1) Cubital tunnel syndrome on right: Code(s): G56.21 - Lesion of ulnar nerve, right upper limb (2) Trigger finger of left thumb: Code(s): M65.312 - Trigger thumb, left thumb Plan Assessment & plan: 1. Left trigger thumb, S/P injection Date of Injection: 12/10/22, by Dr. Aaron in Rheumatology I educated her about this condition I discussed operative and non-operative treatment options As she just received an injection yesterday, no intervention warranted at this time If the patient continues to have locking and catching 4-6 weeks following this injection, they may call to schedule appointment to discuss alternative treatment options She can follow up prn 2. Right Cubital tunnel syndrome, mild Symptoms intermittent & occasional I educated her about this condition No complaint of numbness in her small finger We will manage this conservatively for now 3. Left Carpal tunnel syndrome, S/P release DOS: 12/06/21 Good resolution of symptoms She is very happy with the results of her surgery Scribed for Nicole Stewart MD by Wei Penaloza, biomedical equipment specialist, on 12/11/22 at 1:55 PM, EST. Coding Level of Care Code Est Pt Level 3 (69996) Diagnoses Cubital tunnel syndrome on right G56.21 Trigger finger of left thumb M65.312
== END 2022-12-11 13:57 | disposition home or self-care (01) ==
PROVIDERS: PCP Nurse Practitioner Primary Care; Visit Provider Orthopaedic Surgery
DX: G56.21 Lesion of ulnar nerve, right upper limb (principal); M65.312 Trigger thumb, left thumb
CPT/HCPCS: 99213

== ENCOUNTER → 2022-12-11 12:50 | Outpatient (BNVA) | payer OTHER, SELFPAY | PROVIDERS: PCP Nurse Practitioner Primary Care; Visit Provider Orthopaedic Surgery | DX: M65.312 Trigger thumb, left thumb (principal); G56.21 Lesion of ulnar nerve, right upper limb | CPT/HCPCS: 99212 ==

== ENCOUNTER 2022-12-12 09:12 | Outpatient (REF) | payer OTHER, SELFPAY | END 2022-12-12 09:13 | disposition home or self-care (01) | LOC: HO.MDS 09:12 | PROVIDERS: Visit Provider Internal Medicine Pulmonary Disease | DX: J45.50 Severe persistent asthma, uncomplicated (principal) | CPT/HCPCS: 96372 ==

== ENCOUNTER 2022-12-13 17:53 | Outpatient (REF) | payer OTHER, SELFPAY ==
[2022-12-13 18:36] LABS: Influenza A PCR NEGATIVE (Negative); Influenza B PCR NEGATIVE (Negative); Resp Syncy Virus RNA Qual PCR NEGATIVE (Negative); SARS COV2 PCR INHOUSE NEGATIVE (Negative)
== END 2022-12-13 17:54 | disposition home or self-care (01) ==
LOC: HO.HHCLNP 17:53
PROVIDERS: Visit Provider Emergency Medicine
DX: Z11.52 Encounter for screening for COVID-19 (principal); J44.1 Chronic obstructive pulmonary disease with (acute) exacerbation
CPT/HCPCS: 0241U

== ENCOUNTER 2022-12-26 09:37 | Outpatient (REF) | payer OTHER, SELFPAY | END 2022-12-26 09:38 | disposition home or self-care (01) | LOC: HO.MDS 09:37 | PROVIDERS: Visit Provider Internal Medicine Pulmonary Disease | DX: J45.50 Severe persistent asthma, uncomplicated (principal) | CPT/HCPCS: 96372 ==

== ENCOUNTER 2022-12-30 21:17 | Emergency (ER) | payer OTHER, SELFPAY ==
[2022-12-30 21:20] VITALS: BP 157/87; PULSE 93; RESP 20; TEMP 36.5; O2SAT 94; BMI 33.9
--- NOTE | 2022-12-30 21:23 | ECG_ITS ---
Test Reason : chest pain Blood Pressure : / mmHG Vent. Rate : 080 BPM Atrial Rate : 080 BPM P-R Int : 262 ms QRS Dur : 104 ms QT Int : 402 ms P-R-T Axes : 050 -40 026 degrees QTc Int : 463 ms Sinus rhythm with 1st degree A-V block Left anterior fascicular block Abnormal ECG When compared with ECG of 18-NOV-2022 15:37, AL interval has increased Referred By: Generic ED Physician Electronically Signed By:NATALIA WEBER MD
[2022-12-30 21:47] LABS: MANUAL DIFF FLAG NO
[2022-12-30 21:50] LABS: Basophils Percent Auto 0.4 % (0-2); Eosinophils Absolute Auto 0.2 X10*3/uL (0.0-0.4); Eosinophils Percent Auto 2.9 % (0-4); Hematocrit 39.1 % (37.0-47.0); Hemoglobin 13.2 g/dl (12.0-16.0); Imm Gran Abs Auto 0.01 X10*3/uL (0.00-0.03); Imm Gran Pct Auto 0.1 % (0.0-0.4); Lymphocytes Absolute Auto 3.3 X10*3/uL (1.2-4.9); Mean Corpuscular HGB Conc 33.8 g/dl (31.0-35.0); Mean Corpuscular Hemoglobin 31.9 pg (27.0-33.0); Mean Corpuscular Volume 94.4 fL (80.0-98.0); Mean Platelet Volume 9.2 fL (9.4-12.3); Monocytes Absolute Auto 0.5 X10*3/uL (0.1-1.2); Monocytes Percent Auto 6.6 % (2-11); Neutrophils Absolute Auto 3.4 x10*3/uL (2.0-8.3); Platelet Count 234 X10*3/uL (160-400); Red Blood Count 4.14 X10*6/uL (4.20-5.50); Red Cell Distribution Width 13.4 % (11.0-16.0); White Blood Count 7.5 X10*3/uL (4.8-10.8)
[2022-12-30 21:51] LABS: Appearance Urine Clear; Color Urine Yellow; Glucose Urine UA Negative (Negative); Leukocyte Esterase Urine Moderate (2+) (Negative); Nitrite Urine Negative (Negative); UMIC TRIGGER UACC YES; Urine Blood Negative (Negative); Urine Ketones Negative (Negative); Urine Protein Negative (Neg-Trace)
[2022-12-30 22:03] LABS: Bacteria Urine None Seen (None Seen); Hyaline Casts Urine 0-2 /LPF (0-2); RBC Urine 0-2 /HPF (0-2); Squamous Epithelial Cell Urine 0-2 /HPF (0-2); WBC Urine 0-5 /HPF (0-5)
[2022-12-30 22:08] LABS: Alanine Aminotransferase 29 U/L (0-31); Alkaline Phosphatase 76 U/L (39-117); Anion Gap 13 (12-20); Aspartate Amino Transferase 29 U/L (5-31); Bilirubin Total 0.3 mg/dL (0.0-1.0); Blood Urea Nitrogen 14 mg/dL (9-16); Calcium 9.2 mg/dL (8.4-10.2); Carbon Dioxide 25 mmol/L (22-29); Chloride 108 mmol/L (96-108); Creatinine Clr Calc Pharmacy 75.3; Estimated Glomerular Filt Rate > 60; Glucose Random 119 mg/dL (60-115); Magnesium 2.1 mg/dL (1.6-2.6); Potassium 3.5 mmol/L (3.3-5.1); Sodium 142 mmol/L (135-145)
[2022-12-30 22:16] LABS: Troponin-I High Sensitivity < 2.7 ng/L (<3.5-17.0)
--- NOTE | 2022-12-30 22:17 | ED.GENADULT ---
HPI - General Adult General Chief complaint: General Medical Stated complaint: sugar issues , heart palpitations Time Seen by Provider: 12/30/22 22:04 Source: patient Mode of arrival: ambulatory Limitations: no limitations History of Present Illness HPI narrative: Patient diabetic uses insulin change to Ozempic last 1 month and since the dose was increased to 1 mg last week patient has been having low glucose in 50s does not like the side effect . On arrival patient's blood sugar 119 no fever no chills no signs of infection Related Data Home Medications Medication Instructions Recorded Confirmed calcium carbonate 600 mg-vitamin 1 tab PO BID 11/20/19 05/30/22 D3 10 mcg (400 unit) tablet potassium chloride 20 mEq 20 meq PO BID 11/20/19 05/30/22 tablet,extended release(part/cryst) risperidone 0.5 mg tablet 0.5 mg PO BID 11/20/19 05/30/22 zolpidem 10 mg tablet 10 mg PO BEDTIME PRN Insomnia 11/20/19 05/30/22 clonazepam 1 mg tablet (Klonopin) 1 mg PO DAILY 03/08/20 05/30/22 montelukast 10 mg tablet 10 mg PO BEDTIME 03/08/20 05/30/22 ipratropium 0.5 mg-albuterol 3 mg 3 ml inhalation Q6H PRN 07/06/21 05/30/22 (2.5 mg base)/3 mL nebulization Respiratory Distress soln multivitamin-ferrous 1 tab PO DAILY 07/06/21 05/30/22 fumarate-folic acid 18 mg-400 mcg tablet (Certavite-Antioxidant) fluoride (sodium) 1.1 % dental appl PO 10/16/21 05/30/22 cream (SF 5000 Plus) buspirone 7.5 mg tablet 7.5 mg PO BID 01/31/22 05/30/22 tramadol 50 mg tablet 50 mg PO BID PRN 01/31/22 05/30/22 diclofenac sodium 1 % topical gel g topical 05/07/22 05/30/22 acetaminophen 325 mg tablet 325 mg PO PRN pain 06/11/22 Previous Rx's Medication Instructions Recorded leg brace (Knee Support Brace) #2 ea 03/08/20 blood-glucose meter (FreeStyle #1 ea 02/28/22 Flash System kit) pyridoxine (vitamin B6) 100 mg 100 mg PO DAILY #90 tabs 04/05/22 tablet levothyroxine 75 mcg tablet 75 mcg PO QAM #90 tabs 04/11/22 benzonatate 100 mg capsule 100 mg PO TID PRN cough #30 caps 05/10/22 docusate sodium 100 mg capsule 100 mg PO BID 30 days #60 caps 06/11/22 Lactobacil rhamnosus GG 10 billion 1 cap PO DAILY #30 caps 07/30/22 cell-inulin 200 mg sprinkle capsule ([facility]bel [facility]) dextrose 40 % oral gel (Glutose-15) 15 g PO DIRECTED for 08/13/22 hypoglycemia #112.5 grams gabapentin 400 mg capsule 400 mg PO BEDTIME #30 caps 08/19/22 Xolair 150 mg/mL subcutaneous 300 mg (2 mL) subcut Q2W #4 mL 09/03/22 syringe (omalizumab) semaglutide 1 mg/dose (4 mg/3 mL) 1 mg (0.75 mL) subcut QWEEK #3 mL 09/04/22 subcutaneous pen injector (Ozempic) metoclopramide HCl 10 mg tablet 10 mg PO .tidac #90 tabs 09/10/22 (Reglan) omeprazole 20 mg capsule,delayed 20 mg PO BID@0630,1630 #60 caps 09/10/22 release plecanatide 3 mg tablet (Trulance) 3 mg PO DAILY 30 days #30 tabs 09/10/22 sennosides 8.6 mg tablet (senna) 17.2 mg (2 x 8.6 mg) PO BEDTIME 09/10/22 constipation #60 tabs pen needle, diabetic 32 gauge x ##100 10/01/22 5/32 (UltiCare Pen Needle) albuterol sulfate 90 mcg/actuation 2 puff inhalation Q4-6H PRN 10/02/22 aerosol inhaler shortness of breath or wheezing #6.7 grams fluticasone 250 mcg-salmeterol 50 1 ea inhalation BID 30 days #60 ea 10/02/22 mcg/dose blistr powdr for inhalation lidocaine 5 % topical patch 1 patch topical DAILY #15 ea 10/20/22 insulin aspart See Rx Instructions subcut QAM #15 10/29/22 (niacinamide)(U-100) 100 unit/mL(3 mL mL) subcutaneous pen (Fiasp FlexTouch U-100 Insulin) flash glucose scanning reader #1 ea 11/28/22 (FreeStyle Jalil 2 [place]) flash glucose sensor (FreeStyle #2 ea 11/28/22 Jalil 2 Sensor kit) peg 3350-electrolytes 236 240 ml PO Q10M 1 day #4,000 mL 12/02/22 gram-22.74 gram-6.74 gram-5.86 gram solution (Golytely) blood sugar diagnostic (FreeStyle #100 strips 12/03/22 Lite Strips) lancets 33 gauge (Easy Touch Twist #100 ea 12/03/22 Lancets) ipratropium 20 mcg-albuterol 100 1 puff PO QID #4 grams 12/06/22 mcg/actuation mist for inhalation (Combivent Respimat) amoxicillin 875 mg-potassium 1 tab PO BID 10 days #20 tabs 12/12/22 clavulanate 125 mg tablet prednisone 20 mg tablet 40 mg (2 x 20 mg) PO DAILY 5 days 12/12/22 #10 tabs tiotropium bromide 18 mcg capsule 1 cap inhalation DAILY #30 caps 12/13/22 with inhalation device (Spiriva with HandiHaler) clotrimazole-betamethasone 1 1 appl topical BID itching 7 days 12/25/22 %-0.05 % topical cream #45 grams miconazole nitrate 4 % (200 mg)-2 1 appful vaginal BEDTIME 3 days 12/25/22 % (9 gram)vaginal,prefill #24 grams appl,cream (Monistat 3) Allergies Allergy/AdvReac Type Severity Reaction Status Date / Time aspirin [Aspirin] Allergy Mild ITCHY Verified 12/11/22 13:51 THROAT azithromycin Allergy Unknown Unknown Verified 12/11/22 13:51 naproxen Allergy Unknown Unknown Verified 12/11/22 13:51 simvastatin Allergy Unknown Unknown Verified 12/11/22 13:51 Fish Containing Products Allergy Swelling Verified 12/11/22 13:51 onion [ONION] AdvReac Mild RED FACE Verified 12/11/22 13:51 Review of Systems Review of Systems: Yes all other systems are reviewed and are negative PMFSH Past Medical History Medical History Renal calculi UTI (urinary tract infection) Allergic rhinitis Anxiety and depression Fibromyalgia HTN (hypertension) PTSD (post-traumatic stress disorder) Vertigo Diabetes Chest pain Spondylosis of cervical region without myelopathy or radiculopathy Bronchitis COPD exacerbation Low vitamin D level Non-toxic multinodular goiter Hypothyroidism DVT (deep venous thrombosis) Cocaine abuse Surgical History History of esophagogastroduodenoscopy (EGD) H/O colonoscopy with polypectomy History of selective injection of anesthetic agent around lumbar nerve root Hx of right breast biopsy History of hysterectomy History of lithotripsy Family History Family History Father No problems noted. 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 Oriented X3. No acute distress. Eyes: PERRLA, No Nystagmus ENT: Pharynx normal. Oral Mucosa moist Neck: Normal inspection. Neck supple. CVS: Normal heart rate and rhythm. Pulses normal. Respiratory: No respiratory distress. Equal air entry bilateral, no wheezing/rales/rhonchi Abdomen: Soft and nontender. Bowel sounds are present, no mass palpable, no CVA tenderness Skin: Skin warm and dry. Normal skin color. Normal skin turgor. Extremities: No lower extremity edema. No calf tenderness Neuro: Oriented X 3. No motor deficit. No sensory deficit.No cerebellar signs , cranial nerves II-XII intact Medical Decision Making Medical Decision Making [facility] Narrative: Patient advised to follow-up with PCP to change medications metformin/Trulicity injection Differential Diagnosis Differential Diagnoses: The differential diagnosis associated with the presentation includes Hypoglycemia/medication side effect/diabetes Lab Data [facility] Lab Attestation statement: I reviewed the patient's lab results. 12/30/22 21:40 12/30/22 21:40 Labs: Lab Results 12/30/22 Range/Units 21:40 WBC 7.5 (4.8-10.8) X10*3/uL RBC 4.14 L (4.20-5.50) X10*6/uL Hgb 13.2 (12.0-16.0) g/dl Hct 39.1 (37.0-47.0) % MCV 94.4 (80.0-98.0) fL MCH 31.9 (27.0-33.0) pg MCHC 33.8 (31.0-35.0) g/dl RDW 13.4 (11.0-16.0) % Plt Count 234 (160-400) X10*3/uL MPV 9.2 L (9.4-12.3) fL Immature Gran % (Auto) 0.1 (0.0-0.4) % Neut % (Auto) 46.0 (45-73) % Lymph % (Auto) 44.0 H (20-40) % [place] % (Auto) 6.6 (2-11) % Eos % (Auto) 2.9 (0-4) % Baso % (Auto) 0.4 (0-2) % Lymph # (Auto) 3.3 (1.2-4.9) X10*3/uL [place] # (Auto) 0.5 (0.1-1.2) X10*3/uL Eos # (Auto) 0.2 (0.0-0.4) X10*3/uL Baso # (Auto) 0.0 (0.0-0.2) X10*3/uL Abs Immat Gran (auto) 0.01 (0.00-0.03) X10*3/uL Absolute Neuts (auto) 3.4 (2.0-8.3) x10*3/uL Absolute Nucleated RBC 0.000 (0.0-0.012) X10*3/uL Nucleated RBC % (auto) 0.0 (0.0-0.2) /100WBC Sodium 142 (135-145) mmol/L Potassium 3.5 (3.3-5.1) mmol/L Chloride 108 (96-108) mmol/L Carbon Dioxide 25 (22-29) mmol/L Anion Gap 13 (12-20) BUN 14 (9-16) mg/dL Creatinine 0.87 (0.5-1.4) mg/dL Estim Creat Clear Calc 75.3 Estimated GFR > 60 Random Glucose 119 H (60-115) mg/dL Calcium 9.2 (8.4-10.2) mg/dL Magnesium 2.1 (1.6-2.6) mg/dL Total Bilirubin 0.3 (0.0-1.0) mg/dL AST 29 (5-31) U/L ALT 29 (0-31) U/L Alkaline Phosphatase 76 (39-117) U/L Troponin I High Sens < 2.7 (<3.5-17.0) ng/L Total Protein 7.0 (6.5-8.0) g/dL Albumin 4.0 (3.5-5.0) g/dL Urine Color Yellow Urine Appearance Clear Urine pH 7.0 (5.0-9.0) Ur Specific [place] 1.010 (1.005-1.025) Urine Protein Negative (Neg-Trace) mg/dL Urine Glucose (UA) Negative (Negative) mg/dL Urine Ketones Negative (Negative) mg/dL Urine Blood Negative (Negative) Urine Nitrite Negative (Negative) Ur Leukocyte Esterase Moderate (2+) H (Negative) Urine RBC 0-2 (0-2) /HPF Urine WBC 0-5 (0-5) /HPF Ur Squamous Epith Cells 0-2 (0-2) /HPF Urine Bacteria None Seen (None Seen) Hyaline Casts 0-2 (0-2) /LPF Discharge Plan Discharge Clinical Impression: Diabetes mellitus Patient Disposition: Home, Self-Care Instructions: Type 2 Diabetes Management for Adults (ED) Additional Instructions: Drink plenty of fluid Call your doctor for further management you may need Trulicity inj once a week/metformin for diabetes management Itzel mucho l?quido Llame a arcos m?dico para un mayor control; es posible que necesite Trulicity inj glory vez a la semana/metformina para el control de la diabetes. Prescriptions: No Action (DME) blood-glucose meter [LeeviaStDynamic Signal Flash System] Kit See Rx Instructions .Route Qty: 1 0RF Rx Instructions: As directed levothyroxine 75 mcg tablet 75 mcg PO QAM Qty: 90 4RF [facility] 10 billion cell -200 mg capsule, sprinkle 1 cap PO DAILY Qty: 30 6RF dextrose [Glutose-15] 40 % gel 15 g PO DIRECTED Qty: 112.5 5RF gabapentin 400 mg capsule 400 mg PO BEDTIME Qty: 30 4RF Xolair 150 mg/mL syringe 300 mg subcut Q2W Qty: 4 11RF (DME) pen needle, diabetic [UltiCare Pen Needle] 32 gauge x needle See Rx Instructions .ROUTE .COMPLEX Qty: 100 5RF Dose Instruction: USE FOUR TIMES DAILY Rx Instructions: USE FOUR TIMES DAILY albuterol sulfate 90 mcg/actuation HFA aerosol inhaler 2 puff inhalation Q4-6H PRN (Reason: shortness of breath or wheezing) Qty: 6.7 6RF fluticasone propion-salmeterol 250-50 mcg/dose blister with device 1 ea inhalation BID 30 Days Qty: 60 6RF Fiasp FlexTouch U-100 Insulin 100 unit/mL (3 mL) insulin pen See Rx Instructions subcut QAM Qty: 15 4RF Rx Instructions: 2 units before meals 3 times a day subcutaneously every morning; (DME) FreeStyle Jalil 2 [place] Misc See Rx Instructions .Route Qty: 1 0RF Rx Instructions: As directed (DME) FreeStyle Jalil 2 Sensor Kit See Rx Instructions .Route Qty: 2 4RF Rx Instructions: As directed change every 14 days peg 3350-electrolytes [Golytely] 236-22.74-6.74 -5.86 gram recon soln 240 ml PO Q10M 1 Days Qty: 4000 0RF Rx Instructions: until fecal effluent is clear; do not exceed a total volume of 2,000 mL (DME) FreeStyle Lite Strips Strip See Rx Instructions .ROUTE .COMPLEX Qty: 100 5RF Dose Instruction: TEST BLOOD SUGAR 4 TIMES A DAY Rx Instructions: TEST BLOOD SUGAR 4 TIMES A DAY (DME) lancets [Easy Touch Twist Lancets] 33 gauge misc See Rx Instructions .ROUTE .COMPLEX Qty: 100 5RF Dose Instruction: TEST BLOOD SUGAR 4 TIMES A DAY Rx Instructions: TEST BLOOD SUGAR 4 TIMES A DAY Combivent Respimat 20-100 mcg/actuation mist 1 puff PO QID Qty: 4 0RF amoxicillin-pot clavulanate 875-125 mg tablet 1 tab PO BID 10 Days Qty: 20 0RF prednisone 20 mg tablet 40 mg PO DAILY 5 Days Qty: 10 0RF Spiriva with HandiHaler 18 mcg capsule, w/inhalation device 1 cap inhalation DAILY Qty: 30 6RF miconazole nitrate [Monistat 3] 4 % (200 mg)- 2 % (9 gram) comb pack,prefill appl, cream 1 appful vaginal BEDTIME 3 Days Qty: 24 0RF clotrimazole-betamethasone 1-0.05 % cream 1 appl topical BID 7 Days Qty: 45 0RF Rx Instructions: apply externally a thin coat to the area ipratropium-albuterol 0.5 mg-3 mg(2.5 mg base)/3 mL Solution For Nebulization 3 ml INHALATION Q6H PRN (Reason: Respiratory Distress) Certavite-Antioxidant 18-400 mg-mcg Tablet 1 tab PO DAILY benzonatate 100 mg capsule 100 mg PO TID PRN (Reason: cough) Qty: 30 0RF lidocaine 5 % adhesive patch,medicated 1 patch topical DAILY Qty: 15 0RF Rx Instructions: leave on most painful area for up to 12 hrs montelukast 10 mg tablet 10 mg PO BEDTIME clonazepam [Klonopin] 1 mg tablet 1 mg PO DAILY Rx Instructions: administer 30 minutes before bedtime (DME) Knee Support Brace Misc See Rx Instructions .ROUTE .MEDSUPPLY Qty: 2 0RF Rx Instructions: As directed zolpidem 10 mg tablet 10 mg PO BEDTIME PRN (Reason: Insomnia) risperidone 0.5 mg tablet 0.5 mg PO BID calcium carbonate-vitamin D3 600 mg(1,500mg) -400 unit tablet 1 tab PO BID potassium chloride 20 mEq tablet,ER particles/crystals 20 meq PO BID pyridoxine (vitamin B6) 100 mg tablet 100 mg PO DAILY Qty: 90 3RF acetaminophen 325 mg tablet 325 mg PO PRN (Reason: pain) fluoride (sodium) [SF 5000 Plus] 1.1 % cream PO buspirone 7.5 mg tablet 7.5 mg PO BID tramadol 50 mg tablet 50 mg PO BID PRN docusate sodium 100 mg capsule 100 mg PO BID 30 Days Qty: 60 6RF diclofenac sodium 1 % gel topical Ozempic 1 mg/dose (4 mg/3 mL) pen injector 1 mg subcut QWEEK Qty: 3 4RF Trulance 3 mg tablet 3 mg PO DAILY 30 Days Qty: 30 6RF Rx Instructions: Take one tablet by mouth once a day sennosides [senna] 8.6 mg tablet 17.2 mg PO BEDTIME Qty: 60 6RF omeprazole 20 mg capsule,delayed release(DR/EC) 20 mg PO BID@0630,1630 Qty: 60 6RF metoclopramide HCl [Reglan] 10 mg tablet 10 mg PO .tidac Qty: 90 6RF Print Language: Greenlandic
== END 2022-12-30 22:50 | disposition home or self-care (01) ==
PROVIDERS: Emergency Provider Internal Medicine; PCP Nurse Practitioner Primary Care
DX: E11.9 Type 2 diabetes mellitus without complications (principal); R07.9 Chest pain, unspecified; E03.9 Hypothyroidism, unspecified; I10 Essential (primary) hypertension; J44.9 Chronic obstructive pulmonary disease, unspecified; Z79.4 Long term (current) use of insulin; Z79.899 Other long term (current) drug therapy
CPT/HCPCS: 36415; 80053; 81001; 83735; 84484; 85025; 93005; 99283; 99284

== ENCOUNTER 2023-01-13 09:15 | Outpatient (REF) | payer OTHER, SELFPAY | END 2023-01-13 09:16 | disposition home or self-care (01) | LOC: HO.MDS 09:15 | PROVIDERS: Visit Provider Internal Medicine Pulmonary Disease | DX: J45.50 Severe persistent asthma, uncomplicated (principal) | CPT/HCPCS: 96372 ==

== ENCOUNTER 2023-01-13 09:35 | Emergency (ER) | payer OTHER, SELFPAY ==
[2023-01-13 10:01] VITALS: BP 126/86; PULSE 100; RESP 18; TEMP 36.8; O2SAT 95; BMI 33.1
[2023-01-13 10:37] LABS: MANUAL DIFF FLAG NO
[2023-01-13 10:39] LABS: Basophils Percent Auto 0.4 % (0-2); Eosinophils Absolute Auto 0.2 X10*3/uL (0.0-0.4); Eosinophils Percent Auto 2.8 % (0-4); Hematocrit 43.9 % (37.0-47.0); Hemoglobin 14.5 g/dl (12.0-16.0); Imm Gran Abs Auto 0.01 X10*3/uL (0.00-0.03); Imm Gran Pct Auto 0.2 % (0.0-0.4); Lymphocytes Absolute Auto 1.7 X10*3/uL (1.2-4.9); Lymphocytes Percent Auto 31.4 % (20-40); Mean Corpuscular Hemoglobin 31.4 pg (27.0-33.0); Mean Platelet Volume 9.2 fL (9.4-12.3); Monocytes Absolute Auto 0.5 X10*3/uL (0.1-1.2); Monocytes Percent Auto 9.8 % (2-11); Neutrophils Percent Auto 55.4 % (45-73); Platelet Count 278 X10*3/uL (160-400); Red Blood Count 4.62 X10*6/uL (4.20-5.50); Red Cell Distribution Width 13.4 % (11.0-16.0); White Blood Count 5.4 X10*3/uL (4.8-10.8)
[2023-01-13 10:42] LABS: Appearance Urine Clear; Color Urine Dark Yellow; Glucose Urine UA Negative (Negative); Leukocyte Esterase Urine Negative (Negative); Nitrite Urine Negative (Negative); PH 6.5 (5.0-9.0); Urine Blood Negative (Negative); Urine Ketones Negative (Negative); Urine Protein Negative (Neg-Trace)
[2023-01-13 10:48] LABS: Bacteria Urine None Seen (None Seen); Hyaline Casts Urine 0-2 /LPF (0-2); RBC Urine 0-2 /HPF (0-2); Squamous Epithelial Cell Urine 0-2 /HPF (0-2); WBC Urine 0-5 /HPF (0-5)
[2023-01-13 11:01] LABS: Alanine Aminotransferase 34 U/L (0-31); Albumin Level 4.2 g/dL (3.5-5.0); Alkaline Phosphatase 90 U/L (39-117); Anion Gap 12 (12-20); Aspartate Amino Transferase 34 U/L (5-31); Bilirubin Direct 0.1 mg/dL (0.0-0.5); Bilirubin Total 0.3 mg/dL (0.0-1.0); Blood Urea Nitrogen 11 mg/dL (9-16); Calcium 9.5 mg/dL (8.4-10.2); Carbon Dioxide 25 mmol/L (22-29); Chloride 109 mmol/L (96-108); Creatinine Clr Calc Pharmacy 74.3; Estimated Glomerular Filt Rate > 60; Glucose Random 131 mg/dL (60-115); Lipase 13 U/L (8-78); Potassium 3.6 mmol/L (3.3-5.1); Sodium 142 mmol/L (135-145); Total Protein 7.5 g/dL (6.5-8.0)
--- NOTE | 2023-01-13 13:27 | ED_ITS ---
HPI - Abdominal Pain General Chief Complaint: Abdominal Pain Stated Complaint: L back pain rad to leg Time Seen by Provider: 01/13/23 13:28 Related Data Home Medications Medication Instructions Recorded Confirmed calcium carbonate 600 mg-vitamin 1 tab PO BID 11/20/19 05/30/22 D3 10 mcg (400 unit) tablet potassium chloride 20 mEq 20 meq PO BID 11/20/19 05/30/22 tablet,extended release(part/cryst) risperidone 0.5 mg tablet 0.5 mg PO BID 11/20/19 05/30/22 zolpidem 10 mg tablet 10 mg PO BEDTIME PRN Insomnia 11/20/19 05/30/22 clonazepam 1 mg tablet (Klonopin) 1 mg PO DAILY 03/08/20 05/30/22 montelukast 10 mg tablet 10 mg PO BEDTIME 03/08/20 05/30/22 ipratropium 0.5 mg-albuterol 3 mg 3 ml inhalation Q6H PRN 07/06/21 05/30/22 (2.5 mg base)/3 mL nebulization Respiratory Distress soln multivitamin-ferrous 1 tab PO DAILY 07/06/21 05/30/22 fumarate-folic acid 18 mg-400 mcg tablet (Certavite-Antioxidant) fluoride (sodium) 1.1 % dental appl PO 10/16/21 05/30/22 cream (SF 5000 Plus) buspirone 7.5 mg tablet 7.5 mg PO BID 01/31/22 05/30/22 tramadol 50 mg tablet 50 mg PO BID PRN 01/31/22 05/30/22 diclofenac sodium 1 % topical gel g topical 05/07/22 05/30/22 acetaminophen 325 mg tablet 325 mg PO PRN pain 06/11/22 Previous Rx's Medication Instructions Recorded leg brace (Knee Support Brace) #2 ea 03/08/20 blood-glucose meter (FreeStyle #1 ea 02/28/22 Flash System kit) pyridoxine (vitamin B6) 100 mg 100 mg PO DAILY #90 tabs 04/05/22 tablet levothyroxine 75 mcg tablet 75 mcg PO QAM #90 tabs 04/11/22 benzonatate 100 mg capsule 100 mg PO TID PRN cough #30 caps 05/10/22 Lactobacil rhamnosus GG 10 billion 1 cap PO DAILY #30 caps 07/30/22 cell-inulin 200 mg sprinkle capsule ([facility]) dextrose 40 % oral gel (Glutose-15) 15 g PO DIRECTED for 08/13/22 hypoglycemia #112.5 grams Xolair 150 mg/mL subcutaneous 300 mg (2 mL) subcut Q2W #4 mL 09/03/22 syringe (omalizumab) semaglutide 1 mg/dose (4 mg/3 mL) 1 mg (0.75 mL) subcut QWEEK #3 mL 09/04/22 subcutaneous pen injector (Ozempic) metoclopramide HCl 10 mg tablet 10 mg PO .tidac #90 tabs 09/10/22 (Reglan) plecanatide 3 mg tablet (Trulance) 3 mg PO DAILY 30 days #30 tabs 09/10/22 sennosides 8.6 mg tablet (senna) 17.2 mg (2 x 8.6 mg) PO BEDTIME 09/10/22 constipation #60 tabs pen needle, diabetic 32 gauge x ##100 10/01/22 5/32 (UltiCare Pen Needle) albuterol sulfate 90 mcg/actuation 2 puff inhalation Q4-6H PRN 10/02/22 aerosol inhaler shortness of breath or wheezing #6.7 grams fluticasone 250 mcg-salmeterol 50 1 ea inhalation BID 30 days #60 ea 10/02/22 mcg/dose blistr powdr for inhalation lidocaine 5 % topical patch 1 patch topical DAILY #15 ea 10/20/22 insulin aspart See Rx Instructions subcut QAM #15 10/29/22 (niacinamide)(U-100) 100 unit/mL(3 mL mL) subcutaneous pen (Fiasp FlexTouch U-100 Insulin) flash glucose scanning reader #1 ea 11/28/22 (FreeStyle Jalil 2 [place]) flash glucose sensor (FreeStyle #2 ea 11/28/22 Jalil 2 Sensor kit) peg 3350-electrolytes 236 240 ml PO Q10M 1 day #4,000 mL 12/02/22 gram-22.74 gram-6.74 gram-5.86 gram solution (Golytely) blood sugar diagnostic (FreeStyle #100 strips 12/03/22 Lite Strips) lancets 33 gauge (Easy Touch Twist #100 ea 12/03/22 Lancets) amoxicillin 875 mg-potassium 1 tab PO BID 10 days #20 tabs 12/12/22 clavulanate 125 mg tablet prednisone 20 mg tablet 40 mg (2 x 20 mg) PO DAILY 5 days 12/12/22 #10 tabs clotrimazole-betamethasone 1 1 appl topical BID itching 7 days 12/25/22 %-0.05 % topical cream #45 grams miconazole nitrate 4 % (200 mg)-2 1 appful vaginal BEDTIME 3 days 12/25/22 % (9 gram)vaginal,prefill #24 grams appl,cream (Monistat 3) docusate sodium 100 mg capsule 100 mg PO BID 30 days #60 caps 01/01/23 gabapentin 400 mg capsule 400 mg PO BEDTIME #30 caps 01/01/23 omeprazole 20 mg capsule,delayed 20 mg PO BID@0630,1630 #60 caps 01/01/23 release ipratropium 20 mcg-albuterol 100 1 puff PO QID #4 grams 01/06/23 mcg/actuation mist for inhalation (Combivent Respimat) tiotropium bromide 18 mcg capsule 1 cap inhalation DAILY #30 caps 01/06/23 with inhalation device (Spiriva with HandiHaler) Allergies Allergy/AdvReac Type Severity Reaction Status Date / Time aspirin [Aspirin] Allergy Mild ITCHY Verified 12/11/22 13:51 THROAT azithromycin Allergy Unknown Unknown Verified 12/11/22 13:51 naproxen Allergy Unknown Unknown Verified 12/11/22 13:51 simvastatin Allergy Unknown Unknown Verified 12/11/22 13:51 Fish Containing Products Allergy Swelling Verified 12/11/22 13:51 onion [ONION] AdvReac Mild RED FACE Verified 12/11/22 13:51 FORMERLY [facility] Past Medical History Medical History Renal calculi UTI (urinary tract infection) Allergic rhinitis Anxiety and depression Fibromyalgia HTN (hypertension) PTSD (post-traumatic stress disorder) Vertigo Diabetes Chest pain Spondylosis of cervical region without myelopathy or radiculopathy Bronchitis COPD exacerbation Low vitamin D level Non-toxic multinodular goiter Hypothyroidism DVT (deep venous thrombosis) Cocaine abuse Surgical History History of esophagogastroduodenoscopy (EGD) H/O colonoscopy with polypectomy History of selective injection of anesthetic agent around lumbar nerve root Hx of right breast biopsy History of hysterectomy History of lithotripsy Family History Family History Father No problems noted. 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 Deferred additional HPI, ROS, PE to primary provider. 62-year-old female here with several days of flank pain radiating to the abdomen w/ dysuria. Will obtain labs, ua vss Medical Decision Making Lab Data 01/13/23 10:33 01/13/23 10:33 Labs: Lab Results 01/13/23 Range/Units 10:33 WBC 5.4 (4.8-10.8) X10*3/uL RBC 4.62 (4.20-5.50) X10*6/uL Hgb 14.5 (12.0-16.0) g/dl Hct 43.9 (37.0-47.0) % MCV 95.0 (80.0-98.0) fL MCH 31.4 (27.0-33.0) pg MCHC 33.0 (31.0-35.0) g/dl RDW 13.4 (11.0-16.0) % Plt Count 278 (160-400) X10*3/uL MPV 9.2 L (9.4-12.3) fL Immature Gran % (Auto) 0.2 (0.0-0.4) % Neut % (Auto) 55.4 (45-73) % Lymph % (Auto) 31.4 (20-40) % [place] % (Auto) 9.8 (2-11) % Eos % (Auto) 2.8 (0-4) % Baso % (Auto) 0.4 (0-2) % Lymph # (Auto) 1.7 (1.2-4.9) X10*3/uL [place] # (Auto) 0.5 (0.1-1.2) X10*3/uL Eos # (Auto) 0.2 (0.0-0.4) X10*3/uL Baso # (Auto) 0.0 (0.0-0.2) X10*3/uL Abs Immat Gran (auto) 0.01 (0.00-0.03) X10*3/uL Absolute Neuts (auto) 3.0 (2.0-8.3) x10*3/uL Absolute Nucleated RBC 0.000 (0.0-0.012) X10*3/uL Nucleated RBC % (auto) 0.0 (0.0-0.2) /100WBC Sodium 142 (135-145) mmol/L Potassium 3.6 (3.3-5.1) mmol/L Chloride 109 H (96-108) mmol/L Carbon Dioxide 25 (22-29) mmol/L Anion Gap 12 (12-20) BUN 11 (9-16) mg/dL Creatinine 0.87 (0.5-1.4) mg/dL Estim Creat Clear Calc 74.3 Estimated GFR > 60 Random Glucose 131 H (60-115) mg/dL Calcium 9.5 (8.4-10.2) mg/dL Total Bilirubin 0.3 (0.0-1.0) mg/dL Direct Bilirubin 0.1 (0.0-0.5) mg/dL AST 34 H (5-31) U/L ALT 34 H (0-31) U/L Alkaline Phosphatase 90 (39-117) U/L Total Protein 7.5 (6.5-8.0) g/dL Albumin 4.2 (3.5-5.0) g/dL Lipase 13 (8-78) U/L Urine Color Dark Yellow Urine Appearance Clear Urine pH 6.5 (5.0-9.0) Ur Specific [place] 1.020 (1.005-1.025) Urine Protein Negative (Neg-Trace) mg/dL Urine Glucose (UA) Negative (Negative) mg/dL Urine Ketones Negative (Negative) mg/dL Urine Blood Negative (Negative) Urine Nitrite Negative (Negative) Ur Leukocyte Esterase Negative (Negative) Urine RBC 0-2 (0-2) /HPF Urine WBC 0-5 (0-5) /HPF Ur Squamous Epith Cells 0-2 (0-2) /HPF Urine Bacteria None Seen (None Seen) Hyaline Casts 0-2 (0-2) /LPF Discharge Plan Discharge Clinical Impression: Abdominal pain Patient Disposition: Left W/O Completing Treatment Prescriptions: No Action (DME) blood-glucose meter [FreeStyle Flash System] Kit See Rx Instructions .Route Qty: 1 0RF Rx Instructions: As directed levothyroxine 75 mcg tablet 75 mcg PO QAM Qty: 90 4RF [facility] 10 billion cell -200 mg capsule, sprinkle 1 cap PO DAILY Qty: 30 6RF dextrose [Glutose-15] 40 % gel 15 g PO DIRECTED Qty: 112.5 5RF Xolair 150 mg/mL syringe 300 mg subcut Q2W Qty: 4 11RF (DME) pen needle, diabetic [UltiCare Pen Needle] 32 gauge x 5/32 needle See Rx Instructions .ROUTE .COMPLEX Qty: 100 5RF Dose Instruction: USE FOUR TIMES DAILY Rx Instructions: USE FOUR TIMES DAILY albuterol sulfate 90 mcg/actuation HFA aerosol inhaler 2 puff inhalation Q4-6H PRN (Reason: shortness of breath or wheezing) Qty: 6.7 6RF fluticasone propion-salmeterol 250-50 mcg/dose blister with device 1 ea inhalation BID 30 Days Qty: 60 6RF Fiasp FlexTouch U-100 Insulin 100 unit/mL (3 mL) insulin pen See Rx Instructions subcut QAM Qty: 15 4RF Rx Instructions: 2 units before meals 3 times a day subcutaneously every morning; (DME) FreeStyle Jalil 2 [place] Misc See Rx Instructions .Route Qty: 1 0RF Rx Instructions: As directed (DME) FreeStyle Jalil 2 Sensor Kit See Rx Instructions .Route Qty: 2 4RF Rx Instructions: As directed change every 14 days peg 3350-electrolytes [Golytely] 236-22.74-6.74 -5.86 gram recon soln 240 ml PO Q10M 1 Days Qty: 4000 0RF Rx Instructions: until fecal effluent is clear; do not exceed a total volume of 2,000 mL (DME) FreeStyle Lite Strips Strip See Rx Instructions .ROUTE .COMPLEX Qty: 100 5RF Dose Instruction: TEST BLOOD SUGAR 4 TIMES A DAY Rx Instructions: TEST BLOOD SUGAR 4 TIMES A DAY (DME) lancets [Easy Touch Twist Lancets] 33 gauge misc See Rx Instructions .ROUTE .COMPLEX Qty: 100 5RF Dose Instruction: TEST BLOOD SUGAR 4 TIMES A DAY Rx Instructions: TEST BLOOD SUGAR 4 TIMES A DAY amoxicillin-pot clavulanate 875-125 mg tablet 1 tab PO BID 10 Days Qty: 20 0RF prednisone 20 mg tablet 40 mg PO DAILY 5 Days Qty: 10 0RF miconazole nitrate [Monistat 3] 4 % (200 mg)- 2 % (9 gram) comb pack,prefill appl, cream 1 appful vaginal BEDTIME 3 Days Qty: 24 0RF clotrimazole-betamethasone 1-0.05 % cream 1 appl topical BID 7 Days Qty: 45 0RF Rx Instructions: apply externally a thin coat to the area docusate sodium 100 mg capsule 100 mg PO BID 30 Days Qty: 60 6RF omeprazole 20 mg capsule,delayed release(DR/EC) 20 mg PO BID@0630,1630 Qty: 60 6RF gabapentin 400 mg capsule 400 mg PO BEDTIME Qty: 30 4RF Combivent Respimat 20-100 mcg/actuation mist 1 puff PO QID Qty: 4 0RF Spiriva with HandiHaler 18 mcg capsule, w/inhalation device 1 cap inhalation DAILY Qty: 30 0RF ipratropium-albuterol 0.5 mg-3 mg(2.5 mg base)/3 mL Solution For Nebulization 3 ml INHALATION Q6H PRN (Reason: Respiratory Distress) Certavite-Antioxidant 18-400 mg-mcg Tablet 1 tab PO DAILY benzonatate 100 mg capsule 100 mg PO TID PRN (Reason: cough) Qty: 30 0RF lidocaine 5 % adhesive patch,medicated 1 patch topical DAILY Qty: 15 0RF Rx Instructions: leave on most painful area for up to 12 hrs montelukast 10 mg tablet 10 mg PO BEDTIME clonazepam [Klonopin] 1 mg tablet 1 mg PO DAILY Rx Instructions: administer 30 minutes before bedtime (DME) Knee Support Brace Misc See Rx Instructions .ROUTE .MEDSUPPLY Qty: 2 0RF Rx Instructions: As directed zolpidem 10 mg tablet 10 mg PO BEDTIME PRN (Reason: Insomnia) risperidone 0.5 mg tablet 0.5 mg PO BID calcium carbonate-vitamin D3 600 mg(1,500mg) -400 unit tablet 1 tab PO BID potassium chloride 20 mEq tablet,ER particles/crystals 20 meq PO BID pyridoxine (vitamin B6) 100 mg tablet 100 mg PO DAILY Qty: 90 3RF acetaminophen 325 mg tablet 325 mg PO PRN (Reason: pain) fluoride (sodium) [SF 5000 Plus] 1.1 % cream PO buspirone 7.5 mg tablet 7.5 mg PO BID tramadol 50 mg tablet 50 mg PO BID PRN diclofenac sodium 1 % gel topical Ozempic 1 mg/dose (4 mg/3 mL) pen injector 1 mg subcut QWEEK Qty: 3 4RF Trulance 3 mg tablet 3 mg PO DAILY 30 Days Qty: 30 6RF Rx Instructions: Take one tablet by mouth once a day sennosides [senna] 8.6 mg tablet 17.2 mg PO BEDTIME Qty: 60 6RF metoclopramide HCl [Reglan] 10 mg tablet 10 mg PO .tidac Qty: 90 6RF
== END 2023-01-13 13:35 | disposition left against medical advice (07) ==
PROVIDERS: Emergency Provider Emergency Medicine; PCP Nurse Practitioner Primary Care
DX: R10.9 Unspecified abdominal pain (principal); E11.9 Type 2 diabetes mellitus without complications; I10 Essential (primary) hypertension; Z86.718 Personal history of other venous thrombosis and embolism; Z79.01 Long term (current) use of anticoagulants; Z79.899 Other long term (current) drug therapy; Z79.4 Long term (current) use of insulin
CPT/HCPCS: 36415; 80053; 81001; 82248; 83690; 85025; 99282; 99283

== ENCOUNTER 2023-01-15 12:57 | Outpatient (AMB) | payer OTHER, SELFPAY ==
[2023-01-15 13:06] VITALS: BP 124/72; PULSE 99; O2SAT 95; BMI 33.6
--- NOTE | 2023-01-15 13:06 | MHC.OFFVIS ---
Intake Vital Signs 01/15/23 13:06 Height 5 ft 5 in Weight 201 lb 11.567 oz BMI 33.6 BP 124/72 Blood Pressure Location Rt brachial Position Sitting Pulse 99 Pulse Source Doppler Pulse Oximetry (%) 95 Oxygen Delivery Method Room Air Intake Visit Reasons: asthma Mutuel 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 Required: Yes Mutuel 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 Name: Samantha Ledesma C.L.Estefania Allergies aspirin [Aspirin] Allergy (Mild, Verified 12/11/22 13:51) ITCHY THROAT azithromycin Allergy (Unknown, Verified 12/11/22 13:51) Unknown naproxen Allergy (Unknown, Verified 12/11/22 13:51) Unknown simvastatin Allergy (Unknown, Verified 12/11/22 13:51) Unknown Fish Containing Products Allergy (Verified 12/11/22 13:51) Swelling onion [ONION] Adverse Reaction (Mild, Verified 12/11/22 13:51) RED FACE HPI asthma HPI Details 62-year-old lady, former 30+ pack-year smoker, quit 2014 followed for severe persistent allergic asthma/COPD overlap syndrome and environmental allergies. She continues on Wixela, Spiriva, albuterol MDI, and Xolair with good baseline symptomatic control of her symptoms at the baseline. Patient is complaining of acute exacerbation of her symptoms after whether getting colder, now with cough productive of yellowish sputum. FORMERLY [facility] Medical History Renal calculi UTI (urinary tract infection) Allergic rhinitis Anxiety and depression Fibromyalgia HTN (hypertension) PTSD (post-traumatic stress disorder) Vertigo Diabetes Chest pain Spondylosis of cervical region without myelopathy or radiculopathy Bronchitis COPD exacerbation Low vitamin D level Non-toxic multinodular goiter Hypothyroidism DVT (deep venous thrombosis) Cocaine abuse Surgical History History of esophagogastroduodenoscopy (EGD) H/O colonoscopy with polypectomy History of selective injection of anesthetic agent around lumbar nerve root Hx of right breast biopsy History of hysterectomy History of lithotripsy Family History Father No problems noted. 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 Female Reproductive History Menstrual Age of Menarche: 10 Review of Systems Const Denies daytime sleepiness, Denies excessive sweating, Denies fatigue, Denies fever(s), Denies lethargy, Denies malaise, Denies night sweats, Denies snoring and Denies weight loss Eyes Denies blurry vision and Denies itchy eyes ENT Denies nasal congestion, Denies post nasal drip, Denies sinus pain, Denies sinus pressure and Denies other ( Thrush) Card Denies chest pain, Denies pedal edema, Denies dyspnea, Denies orthopnea and Denies paroxysmal nocturnal dyspnea Resp Reports cough, Denies hemoptysis, Reports excessive phlegm production, Denies dyspnea, Denies snoring and Denies wheezing GI Denies abdominal pain and Denies heartburn Musc Denies myalgias, Denies arthralgias and Denies joint swelling Skin/Breast Denies rash Neuro Denies memory loss and Denies seizure-like activity Psych Denies abnormal sleep pattern, Denies anxiety and Denies memory loss Endo Denies excessive sweating, Denies fatigue and Denies heat intolerance Bruno/Lymph Denies easy bruising Aller/Immun Denies itchy eyes, Denies seasonal rhinorrhea and Denies wheezing Physical Exam Vital Signs: Last Vital Signs Pulse 99 01/15/23 13:06 BP 124/72 01/15/23 13:06 Pulse Ox 95 01/15/23 13:06 Oxygen Delivery Method Room Air 01/15/23 13:06 BMI result Body Mass Index 33.6 Const General: no acute distress and alert Nutritional Appearance: not obese Orientation/consciousness: Other orientation findings ( oriented) HEENT Head: Yes atraumatic Eyes General: appearance normal, both eyes and all related structures Sclerae: sclerae normal EOM: EOMs intact bilaterally Neck Neck: Yes supple Lymphatic: no lymphadenopathy noted Resp Effort & Inspection: normal respiratory effort and no use of accessory muscles Auscultation: clear to auscultation bilaterally Cardio Rate: regular rate Rhythm: regular rhythm Heart sounds: no gallops, no murmurs and no rubs Skin General skin exam: other ( warm) Extrem General: No clubbing, No cyanosis and No edema Assessment & Plan Assessment & Plan (1) Severe persistent asthma: Code(s): J45.50 - Severe persistent asthma, uncomplicated Plan: Baseline well controlled with Xolair, Advair, duo nebs, and albuterol MDI. Continue current regimen. (2) Environmental allergies: Code(s): Z91.09 - Other allergy status, other than to drugs and biological substances Plan: Baseline controlled on Xolair. Continue current regimen. (3) Acute bronchitis: Code(s): J20.9 - Acute bronchitis, unspecified Plan: Now with an acute bronchitis, will treat with a course of prednisone Levaquin. Medications: New levofloxacin 750 mg PO DAILY 7 tabs 0RF Refilled prednisone 40 mg (2 x 20 mg) PO DAILY 10 tabs 0RF 5 days Discontinued amoxicillin-pot clavulanate 875-125 mg Discontinued Reason: Doctor's Order 1 tab PO BID 20 tabs 0RF 10 days Coding Level of Care Code Est Pt Level 4 (37659) Diagnoses Severe persistent asthma J45.50 Environmental allergies Z91.09 Acute bronchitis J20.9
== END 2023-01-15 13:23 | disposition home or self-care (01) ==
PROVIDERS: PCP Nurse Practitioner Primary Care; Visit Provider Internal Medicine Pulmonary Disease
DX: J45.50 Severe persistent asthma, uncomplicated (principal); Z91.09 Other allergy status, other than to drugs and biological substances; J20.9 Acute bronchitis, unspecified
CPT/HCPCS: 99214

== ENCOUNTER → 2023-01-15 12:57 | Outpatient (BNVA) | payer OTHER, SELFPAY | PROVIDERS: PCP Nurse Practitioner Primary Care; Visit Provider Internal Medicine Pulmonary Disease | DX: J45.50 Severe persistent asthma, uncomplicated (principal); J20.9 Acute bronchitis, unspecified; Z91.09 Other allergy status, other than to drugs and biological substances | CPT/HCPCS: 99212 ==

== ENCOUNTER 2023-01-27 09:55 | Outpatient (REF) | payer OTHER, SELFPAY | END 2023-01-27 09:56 | disposition home or self-care (01) | LOC: HO.MDS 09:55 | PROVIDERS: Visit Provider Internal Medicine Pulmonary Disease | DX: J45.50 Severe persistent asthma, uncomplicated (principal) | CPT/HCPCS: 96372 ==

== ENCOUNTER 2023-02-04 11:00 | Outpatient (AMB) | payer OTHER, SELFPAY ==
--- NOTE | 2023-02-04 11:09 | MHC.OFFVIS ---
Intake Vital Signs 02/04/23 11:12 Height 5 ft 5 in Weight 201 lb 15.095 oz BMI 33.6 BP 130/92 H Blood Pressure Location Rt brachial Position Sitting Pulse 100 Pulse Source Pulse Oximeter Intake Visit Reasons: f/u Type 2 DM/hypothyroidism/MNG-CONFIRMED Intake Note: Patient present today to follow up on Type 2 Diabetes Mellitus, Hypothyroidism, and MNG. Patient receives DME supplies through: Pharmacy Last Diabetic Eye exam: March 2022 Last Podiatry Visit: Has not seen a Facility Examiner Random Glucose: 131 mg/dl HgA1C: 7.0% Unemployment Examiner Required: Yes Unemployment Examiner Language: Investment Consultant Name: Mary, Medical Staff CMI Information Interpreted: non-clinical only Accompanied by: Self / Same As Patient Allergies aspirin [Aspirin] Allergy (Mild, Verified 02/04/23 11:12) ITCHY THROAT azithromycin Allergy (Unknown, Verified 02/04/23 11:12) Unknown naproxen Allergy (Unknown, Verified 02/04/23 11:12) Unknown simvastatin Allergy (Unknown, Verified 02/04/23 11:12) Unknown Fish Containing Products Allergy (Verified 02/04/23 11:12) Swelling onion [ONION] Adverse Reaction (Mild, Verified 02/04/23 11:12) RED FACE HPI HPI Comments History of Present Illness Details ?62 yo female today for fup visit, for diiabetes management and hypothyroidism. She started a predisone taper for bronchitis She is off Trulicity 0.75 mg Qwkly. Because of sour taste in the mouth. She is on Fiasp 4 units TID not taking Ozempic 0.25 mg Qwkly Review Jalil download shows average glucose to be 140 with sensor active 96% of the time. GMI is 6.7%. 96% range with 4% hyperglycemia and no hypoglycemia ? She has PMH od GERD, asthma, hypertension, nephrolithiasis, Jerri's thyroiditis. ? She has DM type diagnosed 2016. ? 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 Non toxic multinodular goiter.with subcm nodules ? She is Currently on LT4 75 mcg , 100 % compliance , she has good method of administration. ? She has not known no retinopathy, no nephropathy, no neuropathy, no CVA, CAD, PVD . ? Last ophthalmology evaluation:saw optho in 03/2022 off prednisone for asthma [facility] Medical History Renal calculi UTI (urinary tract infection) Allergic rhinitis Anxiety and depression Fibromyalgia HTN (hypertension) PTSD (post-traumatic stress disorder) Vertigo Diabetes Chest pain Spondylosis of cervical region without myelopathy or radiculopathy Bronchitis COPD exacerbation Low vitamin D level Non-toxic multinodular goiter Hypothyroidism DVT (deep venous thrombosis) Cocaine abuse Surgical History History of esophagogastroduodenoscopy (EGD) H/O colonoscopy with polypectomy History of selective injection of anesthetic agent around lumbar nerve root Hx of right breast biopsy History of hysterectomy History of lithotripsy Family History Father No problems noted. 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 Neck exam shows nl thyroid about 15 gms. Lungs CTA. Heart S1 S2 Reg R/R -MRG. Abdominal exam benign . Muscle strength 5/5 proximally. No hirsuitism present. No striae present. Skin exam without lesions. Const Other: Extrem Other: Visual exam of foot performed. No ulcerations or open lesions. No onchomycosis, no callouses. Sensation intact to monofilament exam. Vibratory sensation sensed 10 seconds in right, 10 seconds in left with 128 Hz tuning fork. Results AMB Hemoglobin A1c AMB Hemoglobin A1c 7.0 % Last Edit by LIZET Francis on 02/04/23 11:32 Results Reviewed Results Reviewed: Laboratory Last Values Glucose (Clinic) 131 mg/dL (60-115) H 02/04/23 11:19 Hgb A1c (Clinic) 7.0 % (4.0-6.0) H 02/04/23 11:23 Assessment & Plan Assessment & Plan (1) Hypothyroidism: Comment: Clinically and biochemically euthyroid on 75 ug of L-T4. Continue present management Code(s): E03.9 - Hypothyroidism, unspecified Plan: Clinically and euthyroid on 75 mcg levothyroxine . She appears to be clinically biochemically euthyroid At This point, patient returned back to her primary care provider and return back to endocrinology as needed (2) Non-toxic multinodular goiter: Code(s): E04.2 - Nontoxic multinodular goiter Plan: subcm nodules benign appearing. No need for further US (3) Type 2 diabetes mellitus with hyperglycemia: Code(s): E11.65 - Type 2 diabetes mellitus with hyperglycemia Qualifiers: Diabetes mellitus care home insulin use: without terminal worker use Qualified Code(s): E11.65 - Type 2 diabetes mellitus with hyperglycemia Plan: This is a 62 yo female with a hx of Type 2 DM being treated with short-acting insulin and Ozempic with excellent improved glycemic control and no known microvascular or macrovascular complications The plan is to continue the current manage. This point, patient returned to the care of her primary care provider and return back to endocrinology should her HbA1c deteriorate Orders: Orders AMB Hemoglobin A1c Today E11.65 - Type 2 diabetes mellitus with hyperglycemia Medications: Refilled dextrose 40% (Glutose-15) 15 grams PO DIRECTED 112.5 grams 5RF for hypoglycemia Coding Level of Care Code Est Pt Level 4 (90719) Diagnoses Hypothyroidism E03.9 Non-toxic multinodular goiter E04.2 Type 2 diabetes mellitus with hyperglycemia, without long-term current use of insulin E11.65 Diabetes mellitus care home insulin use: without terminal worker use
[2023-02-04 11:12] VITALS: BP 130/92; PULSE 100; BMI 33.6
[2023-02-04 11:24] LABS: Glucose, Whole Blood 131 mg/dL (60-115)
== END 2023-02-04 11:29 | disposition home or self-care (01) ==
PROVIDERS: PCP Nurse Practitioner Primary Care; Visit Provider Internal Medicine Endocrinology, Diabetes & Metabolism
DX: E03.9 Hypothyroidism, unspecified (principal); E04.2 Nontoxic multinodular goiter; E11.65 Type 2 diabetes mellitus with hyperglycemia
CPT/HCPCS: 99214

== ENCOUNTER → 2023-02-04 11:00 | Outpatient (BNVA) | payer OTHER, SELFPAY | PROVIDERS: PCP Nurse Practitioner Primary Care; Visit Provider Internal Medicine Endocrinology, Diabetes & Metabolism | DX: E03.9 Hypothyroidism, unspecified (principal); E04.2 Nontoxic multinodular goiter; E11.65 Type 2 diabetes mellitus with hyperglycemia | CPT/HCPCS: 82947; 83036; 99212 ==

== ENCOUNTER 2023-02-05 10:32 | Outpatient (AMB) | payer OTHER, SELFPAY ==
[2023-02-05 10:35] VITALS: BMI 33.5
--- NOTE | 2023-02-05 10:35 | MHC.AMNUTRGE ---
Intake VS Expanded 02/05/23 10:35 Height 5 ft 5 in Weight 201 lb 0.985 oz BMI 33.5 Intake Visit Reasons: DM Allergies aspirin [Aspirin] Allergy (Mild, Verified 02/06/23 13:12) ITCHY THROAT azithromycin Allergy (Unknown, Verified 02/06/23 13:12) Unknown naproxen Allergy (Unknown, Verified 02/06/23 13:12) Unknown simvastatin Allergy (Unknown, Verified 02/06/23 13:12) Unknown Fish Containing Products Allergy (Verified 02/06/23 13:12) Swelling onion [ONION] Adverse Reaction (Mild, Verified 02/06/23 13:12) RED FACE HPI Nutrition Presentation Details Pt presents for MNT for T2DM. Pt reports doing well, no questions or concerns expressed today. food frequency fruits: 0-1/d vegetables: 2 serving/wk , likes salads not including dairy: once/day protein: beef 3x/wk, poultry 5x/wk, eggs fried foods 3-5 x/wk pastries : daily beverages: water , juice physical activity: reports not able to stay still Most Recent Diabetes Results: Creatinine 0.87 mg/dL (0.5-1.4) 01/13/23 Blood Urea Nitrogen 11 mg/dL (9-16) 01/13/23 Sodium 142 mmol/L (135-145) 01/13/23 Potassium 3.6 mmol/L (3.3-5.1) 01/13/23 Chloride 109 mmol/L (96-108) H 01/13/23 Carbon Dioxide 25 mmol/L (22-29) 01/13/23 Calcium 9.5 mg/dL (8.4-10.2) 01/13/23 AST 34 U/L (5-31) H 01/13/23 ALT 34 U/L (0-31) H 01/13/23 Total Protein 7.5 g/dL (6.5-8.0) 01/13/23 Albumin 4.2 g/dL (3.5-5.0) 01/13/23 [facility] Medical History Renal calculi UTI (urinary tract infection) Allergic rhinitis Anxiety and depression Fibromyalgia HTN (hypertension) PTSD (post-traumatic stress disorder) Vertigo Diabetes Chest pain Spondylosis of cervical region without myelopathy or radiculopathy Bronchitis COPD exacerbation Low vitamin D level Non-toxic multinodular goiter Hypothyroidism DVT (deep venous thrombosis) Cocaine abuse Surgical History History of esophagogastroduodenoscopy (EGD) H/O colonoscopy with polypectomy History of selective injection of anesthetic agent around lumbar nerve root Hx of right breast biopsy History of hysterectomy History of lithotripsy Family History Father No problems noted. 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 Female Reproductive History Menstrual Age of Menarche: 10 Assessment & Plan Assessment & Plan (1) Type 2 diabetes mellitus with hyperglycemia: Code(s): E11.65 - Type 2 diabetes mellitus with hyperglycemia Qualifiers: Diabetes mellitus long term care administrator insulin use: without long term care administrator use Qualified Code(s): E11.65 - Type 2 diabetes mellitus with hyperglycemia Plan: Discuss Increasing fiber intake, reducing portions of starches/higher fat foods EST Kcal NEEDS as per [place] [address] Jeor: 1505 USED ADJUSTED BODY WT 71 kg est protein needs as per 0.8-1.0 g/kg bw: 57-71 g/d est fluid needs as per 25 ml/kg bw: 1775 ml/d Rec fiber: increase to 8-10 g per day and gradually increase to 25 g/d as tolerated Rec Na: < 2000 mg /d Educate patient on: (R= Reviewed, V = verbalizes understanding N/R= Needs review N/A= not applicable) Food sources of carbohydrates and serving adequate serving sizes : R V Difference between complex carbohydrates and simple carbohydrates, role of fiber: R V Differences between fats (MUFA/PUFA/saturated fats, trans fats) and food sources of various fats: R V Food sources of sodium and salt and healthy modifications for heart health and kidney health: R Vitamins and minerals: v How to interpret food labels: R V Healthy Plate method concept: R V Physical activity: benefits and precaution: R V REINFORCED nutrition concepts related to increased weight gain and importance of reducing total calories from fats and carbs at meal times and snacks for weight loss Plan Patient Instructions: Aim at consuming 3-4 fruits a day in place of pastries/chips/bread Choose water as main beverage, dilute juices with water Maintain physically active, goal 1 hour daily or as tolerated unless otherwise specified by your doctor Coding Level of Care Code Nutr Indiv Subseq (46621) Diagnoses Type 2 diabetes mellitus with hyperglycemia, without long-term current use of insulin E11.65 Diabetes mellitus jail insulin use: without jail use Time Spent (min) 20
== END 2023-02-05 10:57 | disposition home or self-care (01) ==
PROVIDERS: PCP Nurse Practitioner Primary Care; Visit Provider Dietitian, Registered
DX: E11.65 Type 2 diabetes mellitus with hyperglycemia (principal)

== ENCOUNTER → 2023-02-05 10:32 | Outpatient (BNVA) | payer OTHER, SELFPAY | PROVIDERS: PCP Nurse Practitioner Primary Care; Visit Provider Dietitian, Registered | DX: E11.65 Type 2 diabetes mellitus with hyperglycemia (principal) | CPT/HCPCS: 97803 ==

== ENCOUNTER 2023-02-06 13:07 | Outpatient (AMB) | payer OTHER, SELFPAY ==
--- NOTE | 2023-02-06 13:08 | A.OFFVIS_ITS ---
Intake Intake Visit Reasons: pain and burning in legs Intake Note: pt here for pain and burning in legs. pt states that she has a vein on her right leg that is swollen and pain. She states that her left leg feels ok that the burning and swelling is on the right side Electrical Test Engineer Required: Yes Electrical Test Engineer Name: Pedrito velasquez Information Interpreted: non-clinical & clinical Allergies aspirin [Aspirin] Allergy (Mild, Verified 02/06/23 13:12) ITCHY THROAT azithromycin Allergy (Unknown, Verified 02/06/23 13:12) Unknown naproxen Allergy (Unknown, Verified 02/06/23 13:12) Unknown simvastatin Allergy (Unknown, Verified 02/06/23 13:12) Unknown Fish Containing Products Allergy (Verified 02/06/23 13:12) Swelling onion [ONION] Adverse Reaction (Mild, Verified 02/06/23 13:12) RED FACE HPI pain and burning in legs HPI Details Very pleasant 62-year-old female presents for follow-up regarding lower extremity varicosities. She had prior previous bilateral ablation is. She now presents for pain and discomfort on the right medial calf. She does note that she was exercising and she does think that she did injury it. She was concerned about the varicosities that are in the area. She now presents for vascular evaluation [facility] Medical History Renal calculi UTI (urinary tract infection) Allergic rhinitis Anxiety and depression Fibromyalgia HTN (hypertension) PTSD (post-traumatic stress disorder) Vertigo Diabetes Chest pain Spondylosis of cervical region without myelopathy or radiculopathy Bronchitis COPD exacerbation Low vitamin D level Non-toxic multinodular goiter Hypothyroidism DVT (deep venous thrombosis) Cocaine abuse Surgical History History of esophagogastroduodenoscopy (EGD) H/O colonoscopy with polypectomy History of selective injection of anesthetic agent around lumbar nerve root Hx of right breast biopsy History of hysterectomy History of lithotripsy Family History Father No problems noted. 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 Female Reproductive History Menstrual Age of Menarche: 10 Review of Systems Const All systems reviewed & are unremarkable except as noted in HPI and below Reports no additional complaints ENT Reports Normal hearing present Card Denies chest pain, Denies chest pain at rest, Denies chest pain with activity and Denies pedal edema Resp Denies cough GI Denies abdominal pain Musc Denies abnormal gait, Denies muscle cramps and Denies radiating pain into limb Skin/Breast Denies skin ulcer and Denies wounds Neuro Reports Normal hearing present and Denies abnormal gait Psych Reports no additional complaints Physical Exam Const General: cooperative, healthy appearing and comfortable Orientation/consciousness: oriented to person, oriented to place and oriented to time HEENT Head: Yes normal to inspection Neck Neck: Yes normal visual inspection Carotids: no bruits Chest Chest palpation & inspection: normal inspection of the chest Resp Effort & Inspection: normal respiratory effort and able to speak in complete sentences Auscultation: clear to auscultation bilaterally, no crackles, no rales, no rhonchi and no wheezes Cardio Rate: regular rate Rhythm: regular rhythm Heart sounds: S1 normal heart sound present and S2 normal heart sound present Bruits: no carotid bruits Peripheral pulses: Peripheral pulses 2+ throughout GI Inspection: Yes normal to inspection Skin Wounds: no wounds Hair: normal Neuro General: oriented to person, oriented to place and oriented to time Cranial nerves: Yes CN's II-XII intact bilaterally and Yes Normal hearing p resent Cognition (Neuro): normal cognition Motor exam (neuro): 5/5 motor strength present throughout Extrem Other: venous exam: +1 edema spider telangiectasias Calf pinpoint tenderness near bony prominence near the muscular head of the gastrocs. General: No clubbing, No cyanosis and No edema Psych Appearance: grossly normal Mental Status: mental status grossly normal Speech and movement: Normal speech and movement present Assessment & Plan Assessment & Plan (1) Leg pain: Code(s): M79.606 - Pain in leg, unspecified Qualifiers: Laterality: right Qualified Code(s): M79.604 - Pain in right leg Plan: In short patient has what I believe to be more musculoskeletal pain. Varicosities do not appear inflamed or tender to touch. We did discuss routine conservative measures including warm compresses and use of nonsteroidal anti- inflammatories. She will follow up with us on an as-needed basis. Thank you for allowing us to assist in her care. If there are any questions or concerns please do not hesitate to contact us The patient had an opportunity to ask questions regarding the treatment plan. All questions were answered. Imaging studies, laboratory studies and physical exam results were discussed and reviewed in detail. No major barriers to understanding were identified. The patient expressed understanding and agreement with the above treatment plan. The patient is aware they should contact our office by phone for worsening of the current condition or the appearance of new symptoms. Thank you for allowing me to participate in the vascular care of this patient. If you have any questions or concerns regarding the treatment for the above condition please do not hesitate to contact me. The office telephone contact is [phone]. This note is constructed using voice recognition software. While every effort has been made to ensure accuracy, post hole digger errors may have been included. Thank you for allowing me to participate in the care of your patient. Yours sincerely, Kyler Zepeda MD, FACS, R.P.V.I. Coding Level of Care Code Est Pt Level 3 (75120) Diagnoses Pain of right lower extremity M79.604 Laterality: right
== END 2023-02-06 13:31 | disposition home or self-care (01) ==
PROVIDERS: PCP Nurse Practitioner Primary Care; Visit Provider Surgery Vascular Surgery
DX: M79.604 Pain in right leg (principal)
CPT/HCPCS: 99213

== ENCOUNTER → 2023-02-06 13:07 | Outpatient (BNVA) | payer OTHER, SELFPAY | PROVIDERS: PCP Nurse Practitioner Primary Care; Visit Provider Surgery Vascular Surgery | DX: M79.604 Pain in right leg (principal) | CPT/HCPCS: 99212 ==

== ENCOUNTER 2023-02-11 10:23 | Outpatient (REF) | payer OTHER, SELFPAY | END 2023-02-11 10:24 | disposition home or self-care (01) | LOC: HO.MDS 10:23 | PROVIDERS: Visit Provider Internal Medicine Pulmonary Disease | DX: J45.50 Severe persistent asthma, uncomplicated (principal) | CPT/HCPCS: 96372 ==

== ENCOUNTER 2023-02-13 14:12 | Outpatient (REF) | payer OTHER, SELFPAY ==
[2023-02-14 15:23] LABS: BV Int Neg Control Negative (Negative); BV Int Pos Control Positive (Positive)
== END 2023-02-13 14:13 | disposition home or self-care (01) ==
LOC: HO.LAB 14:12
PROVIDERS: PCP Nurse Practitioner Primary Care; Visit Provider Advanced Practice Midwife
DX: Z01.419 Encounter for gynecological examination (general) (routine) without abnormal findings (principal); L29.2 Pruritus vulvae
CPT/HCPCS: 87480; 87510; 87660

== ENCOUNTER 2023-02-13 14:12 | Outpatient (AMB) | payer OTHER, SELFPAY ==
[2023-02-13 14:36] VITALS: BP 122/86; BMI 33.3
--- NOTE | 2023-02-13 14:36 | A.OFFVIS_ITS ---
Intake Vital Signs 02/13/23 14:36 Height 5 ft 5 in Weight 200 lb BMI 33.3 BP 122/86 Intake Visit Reasons: FISH SMOKER annual exam/DO NOT RS Intake Note: c/o of vaginal itch Sweat Band Separator Required: Yes Sweat Band Separator Language: Certified Physician'S Assistant Name: Virginie HINDS Information Interpreted: non-clinical & clinical Sociology Faculty Member: Sociology Faculty Member Present (Virginie HINDS) Accompanied by: Self / Same As Patient Allergies aspirin [Aspirin] Allergy (Mild, Verified 02/13/23 14:40) ITCHY THROAT azithromycin Allergy (Unknown, Verified 02/13/23 14:40) Unknown naproxen Allergy (Unknown, Verified 02/13/23 14:40) Unknown simvastatin Allergy (Unknown, Verified 02/13/23 14:40) Unknown Fish Containing Products Allergy (Verified 02/13/23 14:40) Swelling onion [ONION] Adverse Reaction (Mild, Verified 02/13/23 14:40) RED FACE Post menopausal: Yes HPI HPI Comments History of Present Illness Details She is a postmenopausal woman 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 She is doing well with concerns: external itching/scratching, no odor, discharge. Used Clorox to clean her underclothes. Attempting to eat a healthy diet with calcium and vitamin D and stays active with exercise. Currently no sexually active. STI testing offered; she declined. Had lab work at the clinic. Last pap smear; 2020. Last mammogram; not UTD Colonoscopy is UTD. Denies any family history of breast, ovarian or colon cancer. [facility] Medical History Renal calculi UTI (urinary tract infection) Allergic rhinitis Anxiety and depression Fibromyalgia HTN (hypertension) PTSD (post-traumatic stress disorder) Vertigo Diabetes Chest pain Spondylosis of cervical region without myelopathy or radiculopathy Bronchitis COPD exacerbation Low vitamin D level Non-toxic multinodular goiter Hypothyroidism DVT (deep venous thrombosis) Cocaine abuse Surgical History History of esophagogastroduodenoscopy (EGD) H/O colonoscopy with polypectomy History of selective injection of anesthetic agent around lumbar nerve root Hx of right breast biopsy History of hysterectomy History of lithotripsy Family History Father No problems noted. 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 Female Reproductive History Menstrual Age of Menarche: 10 Total pregnancies: 3 Full term: 3 Number of Living Children: 3 Date of last pap smear: 05/10/20 Date of Mammogram: 10/31/22 (Birad 1) Review of Systems Const All systems reviewed & are unremarkable except as noted in HPI and below Reports as per HPI Eyes Reports no additional complaints ENT Reports no additional complaints Card Reports no additional complaints Resp Reports no additional complaints GI Reports as per HPI and Reports no additional complaints Reports as per HPI Musc Reports no additional complaints Skin/Breast Reports as per HPI Neuro Reports no additional complaints Psych Reports no additional complaints Endo Reports no additional complaints Bruno/Lymph Reports no additional complaints Aller/Immun Reports no additional complaints Physical Exam Vital Signs: Last Vital Signs BP 122/86 02/13/23 14:36 BMI result Body Mass Index 33.3 Const General: cooperative, healthy appearing, no acute distress, well developed and alert Orientation/consciousness: patient oriented x3 HEENT Head: Yes normal to inspection Eyes General: appearance normal, both eyes and all related structures Neck Neck: Yes normal visual inspection Thyroid: Thyroid normal Chest Chest palpation & inspection: normal inspection of the chest and other (no puckering, dimpling, peau de orange, retraction, discharge, masses) Breast/axilla inspection: normal inspection of the breasts Breast/axilla palpation: normal palpation of the breasts Resp Effort & Inspection: normal respiratory effort GI Inspection: Yes normal to inspection Palpation (GI): Soft to palpation Rectal Exam - Female: deferred Other: small fissure right mid labial minora General: Yes bladder normal to palpation External Female Exam: normal external appearance and normal appearance of the urethra Speculum Exam - Vagina: normal appearance of the vagina, normal palpation, normal vaginal discharge and vagina atrophic Speculum Exam - Cervix: normal appearance of the cervix and Cervix absent (Vaginal cuff no lesions or nodules) Bimanual exam- vagina & uterus: normal bimanual exam, normal palpation and bladder normal to palpation Bimanual Exam- Adnexa, other: no masses Skin General skin exam: no rashes or lesions noted Rashes: no rashes Neuro General: patient oriented x3 Cognition (Neuro): normal cognition Extrem General: Yes normal to inspection Psych Attitude: cooperative Thought process: Normal thought process present Assessment & Plan Assessment & Plan (1) Well woman exam with routine gynecological exam: Code(s): Z01.419 - Encounter for gynecological examination (general) (routine) without abnormal findings (2) Vulvar itching: Code(s): L29.2 - Pruritus vulvae Plan Discussed: Current recommendations for pap smears per ASCCP guidelines. Breast awareness, periodic self breast exams and yearly mammogram. Maintain a healthy lifestyle, well balanced diet including Calcium 1,200 mg and Vitamin D 600 IU daily, and routine exercise. Instructions: Clean with warm water, no soaps, scented products. Use a cool cloth to the area several times a day if swollen and/or uncomfortable. Wear loose, cotton underclothes, avoid tight outer clothing. Air when possible. No shaving. Apply a thin coat of Aquaphor or Vaseline to the area where the small skin tear is on the right side, to coat and protect the area. Complete all medications as prescribed. Await final pending results for any changes in the plan of care. All of her questions and concerns were addressed to the best of my ability. RTO in 1 year for annual dispatcher chief oil exam. This note is constructed using voice recognition software. While every effort has been made to ensure accuracy, dean of boys errors may have been included. Orders: Orders MM tomosynthesis screening BI Today Z12.31 - Encounter for screening mammogram for malignant neoplasm of breast Bacterial Vaginosis Panel Today L29.2 - Pruritus vulvae Coding Level of Care Code Est Pt Prev Care 40-64y(69814) Diagnoses Well woman exam with routine gynecological exam Z01.419 Vulvar itching L29.2
== END 2023-02-13 15:14 | disposition home or self-care (01) ==
LOC: HO.HWS 14:12
PROVIDERS: PCP Nurse Practitioner Primary Care; Visit Provider Advanced Practice Midwife
DX: Z01.419 Encounter for gynecological examination (general) (routine) without abnormal findings (principal); L29.2 Pruritus vulvae
CPT/HCPCS: 99396

== ENCOUNTER 2023-02-18 13:32 | Outpatient (AMB) | payer OTHER, SELFPAY ==
--- NOTE | 2023-02-18 13:34 | MHC.OFFVIS ---
Intake Vital Signs 02/18/23 13:41 Height 5 ft 5 in Weight 201 lb 4.513 oz BMI 33.5 BP 110/70 Blood Pressure Location Rt brachial Position Sitting Pulse 91 Pulse Source Pulse Oximeter Temp 97.9 F Temp Source Skin Pulse Oximetry (%) 97 Oxygen Delivery Method Room Air Intake Visit Reasons: Knee Cortisone Injection Intake Note: Pt last seen 12/10/22 presents today for knee injection. Contract Admin Required: No Allergies aspirin [Aspirin] Allergy (Mild, Verified 02/18/23 13:45) ITCHY THROAT azithromycin Allergy (Unknown, Verified 02/18/23 13:45) Unknown naproxen Allergy (Unknown, Verified 02/18/23 13:45) Unknown simvastatin Allergy (Unknown, Verified 02/18/23 13:45) Unknown Fish Containing Products Allergy (Verified 02/18/23 13:45) Swelling onion [ONION] Adverse Reaction (Mild, Verified 02/18/23 13:45) RED FACE Medication List - Last Reconciled 02/18/23 by Thi Aaron MD acetaminophen 325 mg PO PRN albuterol sulfate 90 mcg/actuation (Ventolin HFA) 2 puffs inhalation Q4-6H PRN blood sugar diagnostic (FreeStyle Lite Strips) TEST BLOOD SUGAR 4 TIMES A DAY blood-glucose meter (FreeStyle Flash System kit) As directed buspirone 7.5 mg PO BID calcium carbonate-vitamin D3 600 mg-10 mcg (400 unit) 1 tab PO BID clonazepam (Klonopin) 1 mg PO DAILY clotrimazole-betamethasone 1-0.05 % 1 appl topical BID 7 days dextrose 40% (Glutose-15) 15 grams PO DIRECTED diclofenac sodium 1% grams topical docusate sodium 100 mg PO BID 30 days flash glucose scanning reader ([employer] Jalil 2 [place]) As directed flash glucose sensor (FreeStyle Jalil 2 Sensor kit) As directed change every 14 days fluoride (sodium) 1.1% (SF 5000 Plus) appl PO fluticasone propion-salmeterol 250-50 mcg/dose 1 ea inhalation BID 30 days gabapentin 400 mg PO BEDTIME hydrocortisone 2.5% (Proctosol HC) 1 appl UT BID ipratropium-albuterol 0.5 mg-3 mg(2.5 mg base)/3 mL 3 mL inhalation Q6H PRN ipratropium-albuterol 20-100 mcg/actuation (Combivent Respimat) 1 puff PO QID Lactobac. rhamnosus GG-inulin 10 billion cell -200 mg ([facility]) 1 cap PO DAILY lancets (Easy Touch Twist Lancets) TEST BLOOD SUGAR 4 TIMES A DAY leg brace (Knee Support Brace) As directed levothyroxine 75 mcg PO QAM lidocaine 5% 1 patch topical DAILY metoclopramide HCl (Reglan) 10 mg PO .tidac miconazole nitrate (Monistat 3) 1 appful vaginal BEDTIME 3 days montelukast 10 mg PO BEDTIME btkqgomkcqhx-nnyt-xsmmu acid 18-400 mg-mcg (Certavite-Antioxidant) 1 tab PO DAILY omeprazole 20 mg PO BID@0630,1630 peg 3350-electrolytes 236-22.74-6.74 -5.86 gram (Golytely) 240 mL PO Q10M 1 day pen needle, diabetic (UltiCare Pen Needle) USE FOUR TIMES DAILY plecanatide (Trulance) 3 mg PO DAILY 30 days potassium chloride ER 20 mEq PO BID pyridoxine (vitamin B6) 100 mg PO DAILY risperidone 0.5 mg PO BID semaglutide (Ozempic) 1 mg (0.75 mL) subcut QWEEK sennosides (senna) 17.2 mg (2 x 8.6 mg) PO BEDTIME tiotropium bromide (Spiriva with HandiHaler) 1 cap inhalation DAILY tramadol 50 mg PO BID PRN Xolair (omalizumab) 300 mg (2 mL) subcut Q2W NS zolpidem 10 mg PO BEDTIME PRN HPI HPI Comments History of Present Illness Details Patient returns for follow-up. She presents requesting left knee cortisone injection. She states that over the last 6 months or so, her left knee madan and gives out on her. There is not much pain. She does not recall an injury or a fall. Of note patient had knee x-rays this year which showed bilateral knee osteoarthritis. She was also referred for physical therapy [facility] Medical History Renal calculi UTI (urinary tract infection) Allergic rhinitis Anxiety and depression Fibromyalgia HTN (hypertension) PTSD (post-traumatic stress disorder) Vertigo Diabetes Chest pain Spondylosis of cervical region without myelopathy or radiculopathy Bronchitis COPD exacerbation Low vitamin D level Non-toxic multinodular goiter Hypothyroidism DVT (deep venous thrombosis) Cocaine abuse Surgical History History of esophagogastroduodenoscopy (EGD) H/O colonoscopy with polypectomy History of selective injection of anesthetic agent around lumbar nerve root Hx of right breast biopsy History of hysterectomy History of lithotripsy Family History Father No problems noted. 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 Female Reproductive History Menstrual Age of Menarche: 10 Review of Systems Musc Details: Left knee giving out Physical Exam Vital Signs: Last Vital Signs Temp 97.9 F 02/18/23 13:41 Pulse 91 02/18/23 13:41 BP 110/70 02/18/23 13:41 Pulse Ox 97 02/18/23 13:41 Oxygen Delivery Method Room Air 02/18/23 13:41 BMI result Body Mass Index 33.5 Const General: cooperative, healthy appearing and comfortable Nutritional Appearance: obese Orientation/consciousness: patient oriented x3 Limitations: no limitations HEENT Head: Yes normocephalic and Yes atraumatic Resp Effort & Inspection: normal respiratory effort and able to speak in complete sentences Neuro General: patient oriented x3 Extrem Other: Left thumb triggering resolved Right knee without swelling or pain with flexion extension Left knee crepitus and pain with full extension Equivocal Vilma's test on the left Assessment & Plan Assessment & Plan (1) Internal derangement of left knee: Code(s): M23.92 - Unspecified internal derangement of left knee Plan: This is a 62-year-old female who presents for evaluation of lack of stability of the left knee. Her left knee gives out on her. She had x-rays earlier this year and they showed mild osteoarthritis. She has been referred to PT. she continues to have left knee buckling. I would like to rule out internal derangement such as a meniscal tear. Will order left knee MRI (2) Trigger finger of left thumb: Code(s): M65.312 - Trigger thumb, left thumb Plan: Injected last visit with resolution pain. Injections can be repeated as needed Plan I spent 26 minutes reviewing patient's chart, evaluating patient, ordering diagnostic workup, counseling patient and documenting in the chart Orders: Orders MR knee LT wo con Today M23.92 - Unspecified internal derangement of left knee Coding Level of Care Code Est Pt Level 4 (19269) Diagnoses Internal derangement of left knee M23.92 Trigger finger of left thumb M65.312
[2023-02-18 13:41] VITALS: BP 110/70; PULSE 91; TEMP 36.6; O2SAT 97; BMI 33.5
== END 2023-02-18 13:50 | disposition home or self-care (01) ==
LOC: HO.RHE 13:32
PROVIDERS: PCP Nurse Practitioner Primary Care; Visit Provider Student in an Organized Health Care Education/Training Program
DX: M23.92 Unspecified internal derangement of left knee (principal); M65.312 Trigger thumb, left thumb
CPT/HCPCS: 99214

== ENCOUNTER → 2023-02-18 13:32 | Outpatient (BNVA) | payer OTHER, SELFPAY | PROVIDERS: PCP Nurse Practitioner Primary Care; Visit Provider Student in an Organized Health Care Education/Training Program | DX: M23.92 Unspecified internal derangement of left knee (principal); M65.312 Trigger thumb, left thumb | CPT/HCPCS: 99212 ==

== ENCOUNTER 2023-02-20 13:48 | Outpatient (AMB) | payer OTHER, SELFPAY ==
[2023-02-20 13:49] VITALS: BP 122/82; PULSE 90; O2SAT 97; BMI 33.7
--- NOTE | 2023-02-20 13:49 | MHC.OFFVIS ---
Intake Vital Signs 02/20/23 13:49 Height 5 ft 5 in Weight 202 lb 13.204 oz BMI 33.7 BP 122/82 Blood Pressure Location Lt brachial Position Sitting Pulse 90 Pulse Source Doppler Pulse Oximetry (%) 97 Oxygen Delivery Method Room Air Intake Visit Reasons: asthma Able Bodied Seaman Required: Yes Able Bodied Seaman Name: Samantha Baltazar Howard Allergies aspirin [Aspirin] Allergy (Mild, Verified 02/20/23 13:54) ITCHY THROAT azithromycin Allergy (Unknown, Verified 02/20/23 13:54) Unknown naproxen Allergy (Unknown, Verified 02/20/23 13:54) Unknown simvastatin Allergy (Unknown, Verified 02/20/23 13:54) Unknown Fish Containing Products Allergy (Verified 02/20/23 13:54) Swelling onion [ONION] Adverse Reaction (Mild, Verified 02/20/23 13:54) RED FACE HPI asthma HPI Details 62-year-old lady, former 30+ pack-year smoker, quit 2014 followed for severe persistent allergic asthma/COPD overlap syndrome and environmental allergies. She continues on Wixela, Spiriva, albuterol MDI, and Xolair with good symptomatic control. She denies any recent exacerbations. [facility] Medical History Renal calculi UTI (urinary tract infection) Allergic rhinitis Anxiety and depression Fibromyalgia HTN (hypertension) PTSD (post-traumatic stress disorder) Vertigo Diabetes Chest pain Spondylosis of cervical region without myelopathy or radiculopathy Bronchitis COPD exacerbation Low vitamin D level Non-toxic multinodular goiter Hypothyroidism DVT (deep venous thrombosis) Cocaine abuse Surgical History History of esophagogastroduodenoscopy (EGD) H/O colonoscopy with polypectomy History of selective injection of anesthetic agent around lumbar nerve root Hx of right breast biopsy History of hysterectomy History of lithotripsy Family History Father No problems noted. 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 Female Reproductive History Menstrual Age of Menarche: 10 Review of Systems Const Denies daytime sleepiness, Denies excessive sweating, Denies fatigue, Denies fever(s), Denies lethargy, Denies malaise, Denies night sweats, Denies snoring and Denies weight loss Eyes Denies blurry vision and Denies itchy eyes ENT Denies nasal congestion, Denies post nasal drip, Denies sinus pain, Denies sinus pressure and Denies other ( Thrush) Card Denies chest pain, Denies pedal edema, Denies dyspnea, Denies orthopnea and Denies paroxysmal nocturnal dyspnea Resp Denies cough, Denies hemoptysis, Denies excessive phlegm production, Denies dyspnea, Denies snoring and Denies wheezing GI Denies abdominal pain and Denies heartburn Musc Denies myalgias, Denies arthralgias and Denies joint swelling Skin/Breast Denies rash Neuro Denies memory loss and Denies seizure-like activity Psych Denies abnormal sleep pattern, Denies anxiety and Denies memory loss Endo Denies excessive sweating, Denies fatigue and Denies heat intolerance Bruno/Lymph Denies easy bruising Aller/Immun Denies itchy eyes, Denies seasonal rhinorrhea and Denies wheezing Physical Exam Vital Signs: Last Vital Signs Pulse 90 02/20/23 13:49 BP 122/82 02/20/23 13:49 Pulse Ox 97 02/20/23 13:49 Oxygen Delivery Method Room Air 02/20/23 13:49 BMI result Body Mass Index 33.7 Const General: no acute distress and alert Nutritional Appearance: not obese Orientation/consciousness: Other orientation findings ( oriented) HEENT Head: Yes atraumatic Eyes General: appearance normal, both eyes and all related structures Sclerae: sclerae normal EOM: EOMs intact bilaterally Neck Neck: Yes supple Lymphatic: no lymphadenopathy noted Resp Effort & Inspection: normal respiratory effort and no use of accessory muscles Auscultation: clear to auscultation bilaterally Cardio Rate: regular rate Rhythm: regular rhythm Heart sounds: no gallops, no murmurs and no rubs Skin General skin exam: other ( warm) Extrem General: No clubbing, No cyanosis and No edema Assessment & Plan Assessment & Plan (1) Severe persistent asthma: Code(s): J45.50 - Severe persistent asthma, uncomplicated Plan: Well controlled on current regimen of Wixela, Spiriva, duo nebs, and Xolair. Continue current regimen. (2) Environmental allergies: Code(s): Z91.09 - Other allergy status, other than to drugs and biological substances Plan: Well controlled on Xolair. Continue current regimen. (3) COPD (chronic obstructive pulmonary disease): Code(s): J44.9 - Chronic obstructive pulmonary disease, unspecified Qualifiers: COPD type: COPD with acute lower respiratory infection Qualified Code(s): J44.0 - Chronic obstructive pulmonary disease with (acute) lower respiratory infection Plan: Well controlled on Spiriva, duo nebs, and Advair. Continue current regimen. Coding Level of Care Code Est Pt Level 4 (77358) Diagnoses Severe persistent asthma J45.50 Environmental allergies Z91.09 Chronic obstructive pulmonary disease with acute lower respiratory infection J44.0 COPD type: COPD with acute lower respiratory infection
== END 2023-02-20 14:05 | disposition home or self-care (01) ==
PROVIDERS: PCP Nurse Practitioner Primary Care; Visit Provider Internal Medicine Pulmonary Disease
DX: J45.50 Severe persistent asthma, uncomplicated (principal); Z91.09 Other allergy status, other than to drugs and biological substances; J44.0 Chronic obstructive pulmonary disease with (acute) lower respiratory infection
CPT/HCPCS: 99214

== ENCOUNTER → 2023-02-20 13:48 | Outpatient (BNVA) | payer OTHER, SELFPAY | PROVIDERS: PCP Nurse Practitioner Primary Care; Visit Provider Internal Medicine Pulmonary Disease | DX: J45.50 Severe persistent asthma, uncomplicated (principal); J44.0 Chronic obstructive pulmonary disease with (acute) lower respiratory infection; Z91.09 Other allergy status, other than to drugs and biological substances | CPT/HCPCS: 99212 ==

== ENCOUNTER 2023-02-25 10:06 | Outpatient (REF) | payer OTHER, SELFPAY | END 2023-02-25 10:07 | disposition home or self-care (01) | LOC: HO.MDS 10:06 | PROVIDERS: Visit Provider Internal Medicine Pulmonary Disease | DX: J45.50 Severe persistent asthma, uncomplicated (principal) | CPT/HCPCS: 96372 ==

== ENCOUNTER 2023-03-10 16:14 | Emergency (ER) | payer OTHER, SELFPAY ==
[2023-03-10 16:44] VITALS: BP 138/90; BP 145/84; PULSE 90; PULSE 92; RESP 18; TEMP 37.1; O2SAT 93; O2SAT 94; BMI 29.9
--- NOTE | 2023-03-10 16:48 | ED.GENADULT ---
HPI - General Adult General Chief complaint: General Medical Stated complaint: hypoglycemia, chest pain, bgl 187 prev. 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 Her last dose was yesterday. Her doctor took her off of all of her other DM medications due to this. She notes today was particularly bad. She could only eat brown rice, beans and one egg today due to lack of appetite and she has some nausea. She drank juice and took oral glucose prior to EMS coming they note bs was 187. She has been having these symptoms on and off since this started. MD complaint: palpitations, hypoglycemia Onset (ago): month(s) (1) Location: chest Radiation: non-radiation Severity: mild Pain Consistency: intermittent Relieving factors: none Exacerbating factors: medication and other Associated symptoms: chest pain, loss of appetite, malaise, nausea/vomiting and weakness Treatments prior to arrival: other (oral glucose) Related Data Home Medications Medication Instructions Recorded Confirmed calcium carbonate 600 mg-vitamin 1 tab PO BID 11/20/19 02/18/23 D3 10 mcg (400 unit) tablet potassium chloride 20 mEq 20 meq PO BID 11/20/19 02/18/23 tablet,extended release(part/cryst) risperidone 0.5 mg tablet 0.5 mg PO BID 11/20/19 02/18/23 zolpidem 10 mg tablet 10 mg PO BEDTIME PRN Insomnia 11/20/19 02/18/23 clonazepam 1 mg tablet (Klonopin) 1 mg PO DAILY 03/08/20 02/18/23 montelukast 10 mg tablet 10 mg PO BEDTIME 03/08/20 02/18/23 ipratropium 0.5 mg-albuterol 3 mg 3 ml inhalation Q6H PRN 07/06/21 02/18/23 (2.5 mg base)/3 mL nebulization Respiratory Distress soln multivitamin-ferrous 1 tab PO DAILY 07/06/21 02/18/23 fumarate-folic acid 18 mg-400 mcg tablet (Certavite-Antioxidant) fluoride (sodium) 1.1 % dental appl PO 10/16/21 02/18/23 cream (SF 5000 Plus) buspirone 7.5 mg tablet 7.5 mg PO BID 01/31/22 02/18/23 tramadol 50 mg tablet 50 mg PO BID PRN 01/31/22 02/18/23 diclofenac sodium 1 % topical gel g topical 05/07/22 02/18/23 acetaminophen 325 mg tablet 325 mg PO PRN pain 06/11/22 02/18/23 Previous Rx's Medication Instructions Recorded leg brace (Knee Support Brace) #2 ea 03/08/20 blood-glucose meter (FreeStyle #1 ea 02/28/22 Flash System kit) levothyroxine 75 mcg tablet 75 mcg PO QAM #90 tabs 04/11/22 Lactobacil rhamnosus GG 10 billion 1 cap PO DAILY #30 caps 07/30/22 cell-inulin 200 mg sprinkle capsule ([facility]) Xolair 150 mg/mL subcutaneous 300 mg (2 mL) subcut Q2W #4 mL 09/03/22 syringe (omalizumab) semaglutide 1 mg/dose (4 mg/3 mL) 1 mg (0.75 mL) subcut QWEEK #3 mL 09/04/22 subcutaneous pen injector (Ozempic) metoclopramide HCl 10 mg tablet 10 mg PO .tidac #90 tabs 09/10/22 (Reglan) plecanatide 3 mg tablet (Trulance) 3 mg PO DAILY 30 days #30 tabs 09/10/22 sennosides 8.6 mg tablet (senna) 17.2 mg (2 x 8.6 mg) PO BEDTIME 09/10/22 constipation #60 tabs pen needle, diabetic 32 gauge x ##100 10/01/22 (UltiCare Pen Needle) fluticasone 250 mcg-salmeterol 50 1 ea inhalation BID 30 days #60 ea 10/02/22 mcg/dose blistr powdr for inhalation lidocaine 5 % topical patch 1 patch topical DAILY #15 ea 10/20/22 flash glucose scanning reader #1 ea 11/28/22 (FreeStyle Jalil 2 Clinton) flash glucose sensor (FreeStyle #2 ea 11/28/22 Jalil 2 Sensor kit) peg 3350-electrolytes 236 240 ml PO Q10M 1 day #4,000 mL 12/02/22 gram-22.74 gram-6.74 gram-5.86 gram solution (Golytely) blood sugar diagnostic (FreeStyle #100 strips 12/03/22 Lite Strips) lancets 33 gauge (Easy Touch Twist #100 ea 12/03/22 Lancets) clotrimazole-betamethasone 1 1 appl topical BID itching 7 days 12/25/22 %-0.05 % topical cream #45 grams miconazole nitrate 4 % (200 mg)-2 1 appful vaginal BEDTIME 3 days 12/25/22 % (9 gram)vaginal,prefill #24 grams appl,cream (Monistat 3) docusate sodium 100 mg capsule 100 mg PO BID 30 days #60 caps 01/01/23 gabapentin 400 mg capsule 400 mg PO BEDTIME #30 caps 01/01/23 omeprazole 20 mg capsule,delayed 20 mg PO BID@0630,1630 #60 caps 01/01/23 release dextrose 40 % oral gel (Glutose-15) 15 g PO DIRECTED for 02/04/23 hypoglycemia #112.5 grams hydrocortisone 2.5 % topical cream 1 appl ID BID hemorrhoids #30 grams 02/04/23 with perineal applicator (Proctosol HC) albuterol sulfate 90 mcg/actuation 2 puff inhalation Q4-6H PRN for 02/11/23 aerosol inhaler (Ventolin HFA) wheezing #18 grams ipratropium 20 mcg-albuterol 100 1 puff inhalation QID #4 grams 03/04/23 mcg/actuation mist for inhalation (Combivent Respimat) pyridoxine (vitamin B6) 100 mg 100 mg PO DAILY #90 tabs 03/04/23 tablet tiotropium bromide 18 mcg capsule 1 cap inhalation DAILY #30 caps 03/06/23 with inhalation device (Spiriva with HandiHaler) Allergies Allergy/AdvReac Type Severity Reaction Status Date / Time aspirin [Aspirin] Allergy Mild ITCHY Verified 02/20/23 13:54 THROAT azithromycin Allergy Unknown Unknown Verified 02/20/23 13:54 naproxen Allergy Unknown Unknown Verified 02/20/23 13:54 simvastatin Allergy Unknown Unknown Verified 02/20/23 13:54 Fish Containing Products Allergy Swelling Verified 02/20/23 13:54 onion [ONION] AdvReac Mild RED FACE Verified 02/20/23 13:54 Review of Systems Review of Systems: Constitutional : No Fever, No Chills, pos Fatigue ENT/Mouth : No sore throat, No Rhinorrhea Eyes: No Eye Pain, No Swelling, No Redness Cardiovascular : pos Chest Pain, No SOB, No Dyspnea on Exertion, pos palpitations Respiratory : No Cough, No Sputum Gastrointestinal : No Nausea, No Vomiting, No Diarrhea, No abdominal Pain Genitourinary : No Dysuria, No Urinary Frequency, No Hematuria, Musculoskeletal : No joint pain, No Myalgias, No Joint Swelling Skin : No Skin Lesions, No rash Neuro : pos Weakness, No Numbness, No Dizziness, no Headache Psych : No Anxiety/Panic, No Depression Heme/Lymph: No Bruising, No Bleeding,No Lymphadenopathy Endocrine : No Polyuria, No Polydipsia All other systems reviewed and are negative [facility] Past Medical History Attestation statement: The following information was validated with the patient. Source: old records reviewed Medical History Renal calculi UTI (urinary tract infection) Allergic rhinitis Anxiety and depression Fibromyalgia HTN (hypertension) PTSD (post-traumatic stress disorder) Vertigo Diabetes Chest pain Spondylosis of cervical region without myelopathy or radiculopathy Bronchitis COPD exacerbation Low vitamin D level Non-toxic multinodular goiter Hypothyroidism DVT (deep venous thrombosis) Cocaine abuse Surgical History History of esophagogastroduodenoscopy (EGD) H/O colonoscopy with polypectomy History of selective injection of anesthetic agent around lumbar nerve root Hx of right breast biopsy History of hysterectomy History of lithotripsy Family History Family History Father No problems noted. 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 Oriented X3. No acute distress. Eyes: Pupils equal, round and reactive to light. ENT: Pharynx normal. Neck: Normal inspection. Neck supple. CVS: Normal heart rate and rhythm. Pulses normal. Respiratory: No respiratory distress. Breath sounds normal. Abdomen: Soft and nontender. Skin: Skin warm and dry. Normal skin color. Normal skin turgor. Extremities: No lower extremity edema. No calf ttp Neuro: Oriented X 3. No motor deficit. No sensory deficit. Course Course Course Narrative: Patient placed in physician observation at 716pm.. The indication for observation is that the patient needs more time to monitor blood sugars given reported episodes of hypoglycemia will monitor overnight, instructed her to follow up with Dr. Reyes if normal in AM can go home. At this time the patient is well developed well nourished, lungs clear, CV RRR, abd nontender, neuro is intact. Medical Decision Making Medical Decision Making [facility] Narrative: 62 yo female with PMH of HTN, HLD, COPD, PTSD, depression, diabetes, GERD, OKEEFE, hypothyroidism here with c/o palpitations, poor PO intake, low BS, weakness, chest pain x 1+ month after starting ozempic. It has escalated to the point she had sugars at 58 today felt it but almost passed out. She only has the chest symptoms with low blood sugars. At this time she is not on any other DM medications - she just took her last injection yesterday. She does have symptoms with the low BS will obtain basic labs, observe, and come up with a plan for her. She should stop the ozempic at this time Differential Diagnosis Differential Diagnoses: The differential diagnosis associated with the presentation includes low blood sugar, dehydration, atypical chest pain Admission/Observation Consideration of admission/observation: Escalation of care including admission/observation considered will likely keep in observation overnight Lab Data [facility] Lab Attestation statement: I reviewed the patient's lab results. 03/10/23 17:40 03/10/23 17:40 Labs: Lab Results 03/10/23 03/10/23 03/10/23 Range/Units 17:26 17:40 18:28 WBC 5.8 (4.8-10.8) X10*3/uL RBC 4.30 (4.20-5.50) X10*6/uL Hgb 13.9 (12.0-16.0) g/dl Hct 41.6 (37.0-47.0) % MCV 96.7 (80.0-98.0) fL MCH 32.3 (27.0-33.0) pg MCHC 33.4 (31.0-35.0) g/dl RDW 13.2 (11.0-16.0) % Plt Count 268 (160-400) X10*3/uL MPV 9.8 (9.4-12.3) fL Immature Gran % (Auto) 1.0 H (0.0-0.4) % Neut % (Auto) 51.8 (45-73) % Lymph % (Auto) 36.3 (20-40) % Spencer % (Auto) 7.8 (2-11) % Eos % (Auto) 2.8 (0-4) % Baso % (Auto) 0.3 (0-2) % Lymph # (Auto) 2.1 (1.2-4.9) X10*3/uL Spencer # (Auto) 0.5 (0.1-1.2) X10*3/uL Eos # (Auto) 0.2 (0.0-0.4) X10*3/uL Baso # (Auto) 0.0 (0.0-0.2) X10*3/uL Abs Immat Gran (auto) 0.06 H (0.00-0.03) X10*3/uL Absolute Neuts (auto) 3.0 (2.0-8.3) x10*3/uL Absolute Nucleated RBC 0.000 (0.0-0.012) X10*3/uL Nucleated RBC % (auto) 0.0 (0.0-0.2) /100WBC Sodium 144 (135-145) mmol/L Potassium 3.6 (3.3-5.1) mmol/L Chloride 109 H (96-108) mmol/L Carbon Dioxide 27 (22-29) mmol/L Anion Gap 12 (12-20) BUN 11 (9-16) mg/dL Creatinine 0.79 (0.5-1.4) mg/dL Estim Creat Clear Calc 80.6 Estimated GFR > 60 POC Glucose 119 H (60-115) mg/dL Random Glucose 100 (60-115) mg/dL Calcium 9.5 (8.4-10.2) mg/dL Magnesium 2.1 (1.6-2.6) mg/dL Total Bilirubin 0.2 (0.0-1.0) mg/dL Direct Bilirubin < 0.2 (0.0-0.5) mg/dL AST 40 H (5-31) U/L ALT 58 H (0-31) U/L Alkaline Phosphatase 89 (39-117) U/L Troponin I High Sens < 2.7 (<3.5-17.0) ng/L Total Protein 7.1 (6.5-8.0) g/dL Albumin 4.1 (3.5-5.0) g/dL Lipase 21 (8-78) U/L TSH 1.22 (0.32-4.0) uIU/mL Urine Color Yellow Urine Appearance Clear Urine pH 7.0 (5.0-9.0) Ur Specific Valdez 1.010 (1.005-1.025) Urine Protein Negative (Neg-Trace) mg/dL Urine Glucose (UA) Negative (Negative) mg/dL Urine Ketones Negative (Negative) mg/dL Urine Blood Negative (Negative) Urine Nitrite Negative (Negative) Ur Leukocyte Esterase Negative (Negative) COVID-19 (DONALD) Negative (Negative) COVID-19 Clin Com See Note Independent Interpretation I performed an independent interpretation of an: EKG Interpretation: Rate: 84 Rhythm: NSR with 1st degree AVB Keno: left, LVH Normal P waves. Normal NEREYDA. Normal QRS complex. ST T wave : no JOSH, normal qTC: 465 prior studies: no acute ischemia The study has been interpreted contemporaneously by me. . Radiology Impression Discussion of test interpretation with radiology: I have reviewed the radiologist's reading. Independent Historian Clinical information obtained from an independent historian. History obtained from or confirmed by: EMS External Record Review External record reviewed: Inpatient record Discharge Plan Discharge Clinical Impression: Atypical chest pain, Heart palpitations Adverse drug reaction Qualifiers: Encounter type: initial encounter Qualified Code(s): T50.905A - Adverse effect of unspecified drugs, medicaments and biological substances, initial encounter Patient Disposition: Still a Patient Instructions: Chest Pain (ED), Heart Palpitations (ED) Additional Instructions: monitor blood sugar closely carry juice and glucose gel with you return for worsening symptoms or concerns. please talk to your doctor about these side effects of ozempic. if you are having these kinds of issues stop taking it. Controle de cerca el nivel de az?car en la rocky. Lleve consigo jugo y gel de glucosa. Regrese si los s?ntomas o inquietudes empeoran. Hable con arcos m?dico sobre estos efectos secundarios de ozempic. Si tiene ojse tipo de problemas, deje de tomarlo. Prescriptions: No Action (DME) blood-glucose meter [FreeStyle Flash System] Kit See Rx Instructions .Route Qty: 1 0RF Rx Instructions: As directed levothyroxine 75 mcg tablet 75 mcg PO QAM Qty: 90 4RF [facility] 10 billion cell -200 mg capsule, sprinkle 1 cap PO DAILY Qty: 30 6RF Xolair 150 mg/mL syringe 300 mg subcut Q2W Qty: 4 11RF (DME) pen needle, diabetic [UltiCare Pen Needle] 32 gauge x 5/32 needle See Rx Instructions .ROUTE .COMPLEX Qty: 100 5RF Dose Instruction: USE FOUR TIMES DAILY Rx Instructions: USE FOUR TIMES DAILY fluticasone propion-salmeterol 250-50 mcg/dose blister with device 1 ea inhalation BID 30 Days Qty: 60 6RF (DME) FreeStyle Jalil 2 Clinton Misc See Rx Instructions .Route Qty: 1 0RF Rx Instructions: As directed (DME) FreeStyle Jalil 2 Sensor Kit See Rx Instructions .Route Qty: 2 4RF Rx Instructions: As directed change every 14 days peg 3350-electrolytes [Golytely] 236-22.74-6.74 -5.86 gram recon soln 240 ml PO Q10M 1 Days Qty: 4000 0RF Rx Instructions: until fecal effluent is clear; do not exceed a total volume of 2,000 mL (DME) FreeStyle Lite Strips Strip See Rx Instructions .ROUTE .COMPLEX Qty: 100 5RF Dose Instruction: TEST BLOOD SUGAR 4 TIMES A DAY Rx Instructions: TEST BLOOD SUGAR 4 TIMES A DAY (DME) lancets [Easy Touch Twist Lancets] 33 gauge misc See Rx Instructions .ROUTE .COMPLEX Qty: 100 5RF Dose Instruction: TEST BLOOD SUGAR 4 TIMES A DAY Rx Instructions: TEST BLOOD SUGAR 4 TIMES A DAY miconazole nitrate [Monistat 3] 4 % (200 mg)- 2 % (9 gram) comb pack,prefill appl, cream 1 appful vaginal BEDTIME 3 Days Qty: 24 0RF clotrimazole-betamethasone 1-0.05 % cream 1 appl topical BID 7 Days Qty: 45 0RF Rx Instructions: apply externally a thin coat to the area docusate sodium 100 mg capsule 100 mg PO BID 30 Days Qty: 60 6RF omeprazole 20 mg capsule,delayed release(DR/EC) 20 mg PO BID@0630,1630 Qty: 60 6RF gabapentin 400 mg capsule 400 mg PO BEDTIME Qty: 30 4RF hydrocortisone [Proctosol HC] 2.5 % cream with perineal applicator 1 appl ID BID Qty: 30 6RF Rx Instructions: BE SURE TO INCLUDE RECTAL APPICATOR!! albuterol sulfate [Ventolin HFA] 90 mcg/actuation HFA aerosol inhaler 2 puff inhalation Q4-6H PRN (Reason: for wheezing) Qty: 18 6RF pyridoxine (vitamin B6) 100 mg tablet 100 mg PO DAILY Qty: 90 3RF Combivent Respimat 20-100 mcg/actuation mist 1 puff inhalation QID Qty: 4 0RF Spiriva with HandiHaler 18 mcg capsule, w/inhalation device 1 cap inhalation DAILY Qty: 30 0RF ipratropium-albuterol 0.5 mg-3 mg(2.5 mg base)/3 mL Solution For Nebulization 3 ml INHALATION Q6H PRN (Reason: Respiratory Distress) Certavite-Antioxidant 18-400 mg-mcg Tablet 1 tab PO DAILY lidocaine 5 % adhesive patch,medicated 1 patch topical DAILY Qty: 15 0RF Rx Instructions: leave on most painful area for up to 12 hrs montelukast 10 mg tablet 10 mg PO BEDTIME clonazepam [Klonopin] 1 mg tablet 1 mg PO DAILY Rx Instructions: administer 30 minutes before bedtime (DME) Knee Support Brace Misc See Rx Instructions .ROUTE .MEDSUPPLY Qty: 2 0RF Rx Instructions: As directed zolpidem 10 mg tablet 10 mg PO BEDTIME PRN (Reason: Insomnia) risperidone 0.5 mg tablet 0.5 mg PO BID calcium carbonate-vitamin D3 600 mg(1,500mg) -400 unit tablet 1 tab PO BID potassium chloride 20 mEq tablet,ER particles/crystals 20 meq PO BID acetaminophen 325 mg tablet 325 mg PO PRN (Reason: pain) fluoride (sodium) [SF 5000 Plus] 1.1 % cream PO buspirone 7.5 mg tablet 7.5 mg PO BID tramadol 50 mg tablet 50 mg PO BID PRN diclofenac sodium 1 % gel topical Ozempic 1 mg/dose (4 mg/3 mL) pen injector 1 mg subcut QWEEK Qty: 3 4RF dextrose [Glutose-15] 40 % gel 15 g PO DIRECTED Qty: 112.5 5RF Trulance 3 mg tablet 3 mg PO DAILY 30 Days Qty: 30 6RF Rx Instructions: Take one tablet by mouth once a day sennosides [senna] 8.6 mg tablet 17.2 mg PO BEDTIME Qty: 60 6RF metoclopramide HCl [Reglan] 10 mg tablet 10 mg PO .tidac Qty: 90 6RF Print Language: Mongolian
--- NOTE | 2023-03-10 16:57 | ECG_ITS ---
Test Reason : PALPITATIONS Blood Pressure : / mmHG Vent. Rate : 084 BPM Atrial Rate : 084 BPM P-R Int : 244 ms QRS Dur : 110 ms QT Int : 394 ms P-R-T Axes : 038 -42 017 degrees QTc Int : 465 ms Sinus rhythm with 1st degree A-V block Left axis deviation Minimal voltage criteria for LVH, may be normal variant ( Bala product ) Abnormal ECG When compared with ECG of 30-DEC-2022 21:32, No significant change was found Referred By: Kiki Butt Electronically Signed By:Agus Denise
[2023-03-10 17:47] LABS: MANUAL DIFF FLAG NO
[2023-03-10 18:11] LABS: Basophils Percent Auto 0.3 % (0-2); Eosinophils Absolute Auto 0.2 X10*3/uL (0.0-0.4); Eosinophils Percent Auto 2.8 % (0-4); Hematocrit 41.6 % (37.0-47.0); Hemoglobin 13.9 g/dl (12.0-16.0); Imm Gran Abs Auto 0.06 X10*3/uL (0.00-0.03); Lymphocytes Absolute Auto 2.1 X10*3/uL (1.2-4.9); Lymphocytes Percent Auto 36.3 % (20-40); Mean Corpuscular HGB Conc 33.4 g/dl (31.0-35.0); Mean Corpuscular Hemoglobin 32.3 pg (27.0-33.0); Mean Corpuscular Volume 96.7 fL (80.0-98.0); Mean Platelet Volume 9.8 fL (9.4-12.3); Monocytes Absolute Auto 0.5 X10*3/uL (0.1-1.2); Monocytes Percent Auto 7.8 % (2-11); Neutrophils Percent Auto 51.8 % (45-73); Platelet Count 268 X10*3/uL (160-400); Red Cell Distribution Width 13.2 % (11.0-16.0); White Blood Count 5.8 X10*3/uL (4.8-10.8)
[2023-03-10 18:13] LABS: Alanine Aminotransferase 58 U/L (0-31); Albumin Level 4.1 g/dL (3.5-5.0); Alkaline Phosphatase 89 U/L (39-117); Anion Gap 12 (12-20); Aspartate Amino Transferase 40 U/L (5-31); Bilirubin Direct < 0.2 mg/dL (0.0-0.5); Bilirubin Total 0.2 mg/dL (0.0-1.0); Blood Urea Nitrogen 11 mg/dL (9-16); Calcium 9.5 mg/dL (8.4-10.2); Carbon Dioxide 27 mmol/L (22-29); Chloride 109 mmol/L (96-108); Creatinine Clr Calc Pharmacy 80.6; Estimated Glomerular Filt Rate > 60; Glucose Random 100 mg/dL (60-115); Lipase 21 U/L (8-78); Magnesium 2.1 mg/dL (1.6-2.6); Potassium 3.6 mmol/L (3.3-5.1); Sodium 144 mmol/L (135-145); Total Protein 7.1 g/dL (6.5-8.0)
[2023-03-10 18:14] LABS: Troponin-I High Sensitivity < 2.7 ng/L (<3.5-17.0)
[2023-03-10 18:27] VITALS: BP 126/84; PULSE 83; RESP 16; TEMP 36.9; O2SAT 95
[2023-03-10 18:27] LABS: TSH reflex Free T4 1.22 uIU/mL (0.32-4.0)
[2023-03-10 18:38] LABS: Appearance Urine Clear; Color Urine Yellow; Glucose Urine UA Negative (Negative); Leukocyte Esterase Urine Negative (Negative); Nitrite Urine Negative (Negative); Urine Blood Negative (Negative); Urine Ketones Negative (Negative); Urine Protein Negative (Neg-Trace)
[2023-03-10 18:38] LABS: COVID-19 Test Negative (Negative); IDNOW Serial# 08D9AD1C
[2023-03-10 19:05] LABS: Glucose, Whole Blood 119 mg/dL (60-115)
[2023-03-10 21:38] LABS: Glucose, Whole Blood 124 mg/dL (60-115)
[2023-03-10 22:38] VITALS: BP 122/66; PULSE 83; RESP 20; O2SAT 93
[2023-03-10 23:46] VITALS: BP 111/65; PULSE 89; O2SAT 98
[2023-03-10 23:51] LABS: Glucose, Whole Blood 138 mg/dL (60-115)
--- NOTE | 2023-03-11 02:07 | PC.NURSE ---
noble placed in decon by security
[2023-03-11 02:22] VITALS: BP 95/50; PULSE 80; RESP 15; TEMP 36.9; O2SAT 96
[2023-03-11 02:33] LABS: Glucose, Whole Blood 155 mg/dL (60-115)
[2023-03-11 05:19] LABS: Glucose, Whole Blood 134 mg/dL (60-115)
[2023-03-11 08:23] LABS: Glucose, Whole Blood 172 mg/dL (60-115)
== END 2023-03-11 09:08 | disposition home or self-care (01) ==
PROVIDERS: Emergency Provider Emergency Medicine; PCP Nurse Practitioner Primary Care
DX: R07.89 Other chest pain (principal); R00.2 Palpitations; T50.905A Adverse effect of unspecified drugs, medicaments and biological substances, initial encounter; E11.649 Type 2 diabetes mellitus with hypoglycemia without coma; Y92.009 Unspecified place in unspecified non-institutional (private) residence as the place of occurrence of the external cause; E11.9 Type 2 diabetes mellitus without complications; I10 Essential (primary) hypertension; E78.5 Hyperlipidemia, unspecified; F14.10 Cocaine abuse, uncomplicated
CPT/HCPCS: 80048; 80076; 81003; 82947; 83690; 83735; 84443; 84484; 85025; 87635; 93005; 99284; 99285

== ENCOUNTER → 2023-03-10 16:57 | Outpatient (BNV) | payer OTHER, SELFPAY | PROVIDERS: Emergency Provider Emergency Medicine; PCP Nurse Practitioner Primary Care; Visit Provider Internal Medicine Cardiovascular Disease | DX: I44.0 Atrioventricular block, first degree (principal) | CPT/HCPCS: 93010 ==

== ENCOUNTER 2023-03-11 09:29 | Outpatient (REF) | payer OTHER, SELFPAY | END 2023-03-11 09:30 | disposition home or self-care (01) | LOC: HO.MDS 09:29 | PROVIDERS: Visit Provider Internal Medicine Pulmonary Disease | DX: J45.50 Severe persistent asthma, uncomplicated (principal) | CPT/HCPCS: 96372 ==

== ENCOUNTER 2023-03-20 12:37 | Outpatient (REF) | payer OTHER, SELFPAY ==
--- NOTE | ~2023-03-20 | MM_ITS ---
EXAMINATION: MM SCREENING DIGITAL BREAST TOMOSYNTHESIS, BILATERAL CLINICAL INFORMATION: Screening. Asymptomatic. COMPARISON: Mammography: This study is compared with prior exams dating back to 2018. TECHNIQUE: Digital breast tomosynthesis is performed in both the craniocaudal and mediolateral oblique views along with computer-aided detection (CAD). Synthesized 2D images are generated from the tomosynthesis. FINDINGS: The breasts are almost entirely fatty (ACR BI-RADS breast composition Category a). There are no significant masses, abnormal calcifications, or other abnormalities. There is a tissue marker in the right breast from prior benign percutaneous biopsy. MM/MM tomosynthesis screening BI IMPRESSION: No mammographic evidence of malignancy. ASSESSMENT: BI-RADS BI-RADS 2 - Benign Findings RECOMMENDATION: Routine annual mammography screening. 1 year F/U This examination should not preclude the clinical evaluation of a suspicious palpable abnormality. This patient's information was entered into a reminder system with a target due date for their next mammogram.
== END 2023-03-20 12:38 | disposition home or self-care (01) ==
LOC: HO.MAMMO 12:37
PROVIDERS: PCP Nurse Practitioner Primary Care; Visit Provider Advanced Practice Midwife
DX: Z12.31 Encounter for screening mammogram for malignant neoplasm of breast (principal)
CPT/HCPCS: 77063; 77067

== ENCOUNTER → 2023-03-20 12:45 | Outpatient (BNV) | payer OTHER, SELFPAY | PROVIDERS: PCP Nurse Practitioner Primary Care; Visit Provider Radiology Diagnostic Radiology | DX: Z12.31 Encounter for screening mammogram for malignant neoplasm of breast (principal) | CPT/HCPCS: 77063; 77067 ==

== ENCOUNTER 2023-03-25 08:58 | Outpatient (REF) | payer OTHER, SELFPAY | END 2023-03-25 08:59 | disposition home or self-care (01) | LOC: HO.MDS 08:58 | PROVIDERS: Visit Provider Internal Medicine Pulmonary Disease | DX: J45.50 Severe persistent asthma, uncomplicated (principal) | CPT/HCPCS: 96372; J2357 ==

== ENCOUNTER 2023-03-27 13:30 | Outpatient (AMB) | payer OTHER, SELFPAY ==
[2023-03-27 13:34] VITALS: BP 110/72; PULSE 91; O2SAT 96
--- NOTE | 2023-03-27 13:34 | A.OFFVIS_ITS ---
Intake Vital Signs 03/27/23 13:34 Weight 203 lb 14.841 oz BP 110/72 Blood Pressure Location Rt brachial Position Sitting Pulse 91 Pulse Source Doppler Pulse Oximetry (%) 96 Oxygen Delivery Method Room Air Intake Visit Reasons: Asthma Counseling Psychologist Required: Yes Counseling Psychologist Name: Samantha Baltazar Howard Allergies aspirin [Aspirin] Allergy (Mild, Verified 03/27/23 13:38) ITCHY THROAT azithromycin Allergy (Unknown, Verified 03/27/23 13:38) Unknown naproxen Allergy (Unknown, Verified 03/27/23 13:38) Unknown simvastatin Allergy (Unknown, Verified 03/27/23 13:38) Unknown Fish Containing Products Allergy (Verified 03/27/23 13:38) Swelling onion [ONION] Adverse Reaction (Mild, Verified 03/27/23 13:38) RED FACE HPI Asthma HPI Details 62-year-old lady, former 30+ pack-year s moker, quit 2014 followed for severe persistent allergic asthma/COPD overlap syndrome and environmental allergies. She continues on Wixela, Spiriva, albuterol MDI, and Xolair with good symptomatic control. She denies any recent exacerbations. No significant changes since prior visit. [facility] Medical History Renal calculi UTI (urinary tract infection) Allergic rhinitis Anxiety and depression Fibromyalgia HTN (hypertension) PTSD (post-traumatic stress disorder) Vertigo Diabetes Chest pain Spondylosis of cervical region without myelopathy or radiculopathy Bronchitis COPD exacerbation Low vitamin D level Non-toxic multinodular goiter Hypothyroidism DVT (deep venous thrombosis) Cocaine abuse Surgical History History of esophagogastroduodenoscopy (EGD) H/O colonoscopy with polypectomy History of selective injection of anesthetic agent around lumbar nerve root Hx of right breast biopsy History of hysterectomy History of lithotripsy Family History Father No problems noted. 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 Female Reproductive History Menstrual Age of Menarche: 10 Review of Systems Const Denies daytime sleepiness, Denies excessive sweating, Denies fatigue, Denies fever(s), Denies lethargy, Denies malaise, Denies night sweats, Denies snoring and Denies weight loss Eyes Denies blurry vision and Denies itchy eyes ENT Denies nasal congestion, Denies post nasal drip, Denies sinus pain, Denies sinus pressure and Denies other ( Thrush) Card Denies chest pain, Denies pedal edema, Denies dyspnea, Denies orthopnea and Denies paroxysmal nocturnal dyspnea Resp Denies cough, Denies hemoptysis, Denies excessive phlegm production, Denies dyspnea, Denies snoring and Denies wheezing GI Denies abdominal pain and Denies heartburn Musc Denies myalgias, Denies arthralgias and Denies joint swelling Skin/Breast Denies rash Neuro Denies memory loss and Denies seizure-like activity Psych Denies abnormal sleep pattern, Denies anxiety and Denies memory loss Endo Denies excessive sweating, Denies fatigue and Denies heat intolerance Bruno/Lymph Denies easy bruising Aller/Immun Denies itchy eyes, Denies seasonal rhinorrhea and Denies wheezing Physical Exam Vital Signs: Last Vital Signs Pulse 91 03/27/23 13:34 BP 110/72 03/27/23 13:34 Pulse Ox 96 03/27/23 13:34 Oxygen Delivery Method Room Air 03/27/23 13:34 Const General: no acute distress and alert Nutritional Appearance: obese Orientation/consciousness: Other orientation findings ( oriented) HEENT Head: Yes atraumatic Eyes General: appearance normal, both eyes and all related structures Sclerae: sclerae normal EOM: EOMs intact bilaterally Neck Neck: Yes supple Lymphatic: no lymphadenopathy noted Resp Effort & Inspection: normal respiratory effort and no use of accessory muscles Auscultation: clear to auscultation bilaterally Cardio Rate: regular rate Rhythm: regular rhythm Heart sounds: no gallops, no murmurs and no rubs Skin General skin exam: other ( warm) Extrem General: No clubbing, No cyanosis and No edema Assessment & Plan Assessment & Plan (1) Asthma-COPD overlap syndrome: Code(s): J44.89 - Other specified chronic obstructive pulmonary disease Plan: Well controlled on current regimen Spiriva, Advair, duo nebs, Combivent, and albuterol MDI. Continue current regimen. (2) Environmental allergies: Code(s): Z91.09 - Other allergy status, other than to drugs and biological substances Plan: Well controlled on Xolair. Continue current regimen. Coding Level of Care Code Est Pt Level 4 (47222) Diagnoses Asthma-COPD overlap syndrome J44.89 Environmental allergies Z91.09
== END 2023-03-27 13:47 | disposition home or self-care (01) ==
PROVIDERS: PCP Nurse Practitioner Primary Care; Visit Provider Internal Medicine Pulmonary Disease
DX: J44.89 Other specified chronic obstructive pulmonary disease (principal); Z91.09 Other allergy status, other than to drugs and biological substances
CPT/HCPCS: 99214

== ENCOUNTER → 2023-03-27 13:30 | Outpatient (BNVA) | payer OTHER, SELFPAY | PROVIDERS: PCP Nurse Practitioner Primary Care; Visit Provider Internal Medicine Pulmonary Disease | DX: J44.89 Other specified chronic obstructive pulmonary disease (principal); Z91.09 Other allergy status, other than to drugs and biological substances | CPT/HCPCS: 99212 ==

== ENCOUNTER 2023-04-08 08:34 | Outpatient (REF) | payer OTHER, SELFPAY | END 2023-04-08 08:35 | disposition home or self-care (01) | LOC: HO.MDS 08:34 | PROVIDERS: Visit Provider Internal Medicine Pulmonary Disease | DX: J45.50 Severe persistent asthma, uncomplicated (principal) | CPT/HCPCS: 96372 ==

== ENCOUNTER 2023-04-11 09:27 | Outpatient (REF) | payer OTHER, SELFPAY ==
--- NOTE | ~2023-04-11 | MR_ITS ---
EXAMINATION: MR KNEE WITHOUT CONTRAST, LEFT CLINICAL INFORMATION: Left knee instability COMPARISON: None available. TECHNIQUE: MRI of the knee without contrast was performed using routine sequences on a high-field scanner. FINDINGS: MENISCUS: The Left medial meniscus shows branching oblique horizontal T2 hyperintensity in the posterior horn cutting through the inferior and superior articular surface. The lateral meniscus is intact. CARTILAGE: Articular cartilage of the femoral condyles and tibial plateaus are intact. LIGAMENTS: The anterior and posterior cruciate ligaments are intact. Tibial and fibular collateral ligaments, iliotibial band, biceps femoris tendon attachment are intact. PATELLA: The Left patellar tendon and patellar articular cartilage are intact. There is mild left knee effusion. BONES: No focal bone lesions with abnormal signal can be seen. MR/MR knee LT wo con IMPRESSION: 1. Branching horizontal Tear of the posterior horn of the medial meniscus. 2. Mild left knee effusion.
== END 2023-04-11 09:28 | disposition home or self-care (01) ==
LOC: HO.MRI 09:27
PROVIDERS: PCP Nurse Practitioner Primary Care; Visit Provider Student in an Organized Health Care Education/Training Program
DX: M23.92 Unspecified internal derangement of left knee (principal)
CPT/HCPCS: 73721

== ENCOUNTER 2023-04-22 10:30 | Outpatient (REF) | payer OTHER, SELFPAY ==
[2023-04-22 10:43] VITALS: PULSE 86; RESP 149; TEMP 37.1; O2SAT 97
[2023-04-22] MEDS: Omalizumab 150 MG/ML SYRINGE 300 MG SUBCUT (10:44)
== END 2023-04-22 10:31 | disposition home or self-care (01) ==
LOC: HO.MDS 10:30
PROVIDERS: Visit Provider Internal Medicine Pulmonary Disease
DX: J45.50 Severe persistent asthma, uncomplicated (principal)
CPT/HCPCS: 96372

== ENCOUNTER 2023-04-24 10:41 | Outpatient (AMB) | payer OTHER, SELFPAY ==
--- NOTE | 2023-04-24 11:05 | A.OFFVIS_ITS ---
Intake Vital Signs 04/24/23 11:08 Height 5 ft 6 in Weight 196 lb 3.382 oz BMI 31.7 BP 114/66 Pulse 90 Pulse Oximetry (%) 97 Oxygen Delivery Method Room Air Intake Visit Reasons: Knee OA Intake Note: Patient last seen 02/18/23 presents today for follow up and test results. R knee pain, gives out, falling Customer Service Leader Required: Yes Customer Service Leader Name: Juan [facility] [place] Customer Service Leader Servic Information Interpreted: clinical only Accompanied by: Self / Same As Patient Allergies aspirin [Aspirin] Allergy (Mild, Verified 04/24/23 11:12) ITCHY THROAT azithromycin Allergy (Unknown, Verified 04/24/23 11:12) Unknown naproxen Allergy (Unknown, Verified 04/24/23 11:12) Unknown simvastatin Allergy (Unknown, Verified 04/24/23 11:12) Unknown Fish Containing Products Allergy (Verified 04/24/23 11:12) Swelling onion [ONION] Adverse Reaction (Mild, Verified 04/24/23 11:12) RED FACE Medication List - Last Reconciled 04/24/23 by Thi Aaron MD acetaminophen 325 mg PO PRN albuterol sulfate 90 mcg/actuation (Ventolin HFA) 2 puffs inhalation Q4-6H PRN blood sugar diagnostic (FreeStyle Lite Strips) TEST BLOOD SUGAR 4 TIMES A DAY blood-glucose meter ([employer]Style Flash System kit) As directed buspirone 7.5 mg PO BID calcium carbonate-vitamin D3 600 mg-10 mcg (400 unit) 1 tab PO BID clonazepam (Klonopin) 1 mg PO DAILY clotrimazole-betamethasone 1-0.05 % 1 appl topical BID 7 days dextrose 40% (Glutose-15) 15 grams PO DIRECTED diclofenac sodium 1% grams topical docusate sodium 100 mg PO BID 30 days flash glucose scanning reader ([employer]Style Jalil 2 Juntura) As directed flash glucose sensor (FreeStyle Jalil 2 Sensor kit) As directed change every 14 days fluoride (sodium) 1.1% (SF 5000 Plus) appl PO fluticasone propion-salmeterol 250-50 mcg/dose 1 ea inhalation BID 30 days gabapentin 400 mg PO BEDTIME hydrocortisone 2.5% (Proctosol HC) 1 appl IA BID ipratropium-albuterol 0.5 mg-3 mg(2.5 mg base)/3 mL 3 mL inhalation Q6H PRN ipratropium-albuterol 20-100 mcg/actuation (Combivent Respimat) 1 puff inhalation QID Lactobac. rhamnosus GG-inulin 10 billion cell -200 mg ([facility] [employer] [facility]) 1 cap PO DAILY lancets (Easy Touch Twist Lancets) TEST BLOOD SUGAR 4 TIMES A DAY leg brace (Knee Support Brace) As directed levofloxacin 750 mg PO DAILY levothyroxine 75 mcg PO QAM lidocaine 5% 1 patch topical DAILY metoclopramide HCl 10 mg PO TID miconazole nitrate (Monistat 3) 1 appful vaginal BEDTIME 3 days montelukast 10 mg PO BEDTIME zowyyxgagxkw-dpns-vetoc acid 18-400 mg-mcg (Certavite-Antioxidant) 1 tab PO DAILY omeprazole 20 mg PO BID@0630,1630 peg 3350-electrolytes 236-22.74-6.74 -5.86 gram (Golytely) 240 mL PO Q10M 1 day pen needle, diabetic (UltiCare Pen Needle) USE FOUR TIMES DAILY plecanatide (Trulance) 3 mg PO DAILY 30 days potassium chloride ER 20 mEq PO BID pyridoxine (vitamin B6) 100 mg PO DAILY risperidone 0.5 mg PO BID semaglutide (Ozempic) 1 mg (0.75 mL) subcut QWEEK sennosides (senna) 17.2 mg (2 x 8.6 mg) PO BEDTIME tiotropium bromide (Spiriva with HandiHaler) 1 cap inhalation DAILY tramadol 50 mg PO BID PRN Xolair (omalizumab) 300 mg (2 mL) subcut Q2W NS zolpidem 10 mg PO BEDTIME PRN HPI HPI Comments History of Present Illness Details 62-year-old female with osteoarthritis r eturns for follow-up. She is here to review left knee MRI results. [facility] Medical History Renal calculi UTI (urinary tract infection) Allergic rhinitis Anxiety and depression Fibromyalgia HTN (hypertension) PTSD (post-traumatic stress disorder) Vertigo Diabetes Chest pain Spondylosis of cervical region without myelopathy or radiculopathy Bronchitis COPD exacerbation Low vitamin D level Non-toxic multinodular goiter Hypothyroidism DVT (deep venous thrombosis) Cocaine abuse Surgical History History of esophagogastroduodenoscopy (EGD) H/O colonoscopy with polypectomy History of selective injection of anesthetic agent around lumbar nerve root Hx of right breast biopsy History of hysterectomy History of lithotripsy Family History Father No problems noted. 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 Female Reproductive History Menstrual Age of Menarche: 10 Review of Systems Musc Details: Knee is unsteady Physical Exam Vital Signs: Last Vital Signs Pulse 90 04/24/23 11:08 BP 114/66 04/24/23 11:08 Pulse Ox 97 04/24/23 11:08 Oxygen Delivery Method Room Air 04/24/23 11:08 BMI result Body Mass Index 31.7 Const General: cooperative, healthy appearing and comfortable Nutritional Appearance: obese Orientation/consciousness: patient oriented x3 Limitations: no limitations HEENT Head: Yes normocephalic and Yes atraumatic Resp Effort & Inspection: normal respiratory effort and able to speak in complete sentences Neuro General: patient oriented x3 Assessment & Plan Assessment & Plan (1) Tear of medial meniscus of left knee: Code(s): S83.242A - Other tear of medial meniscus, current injury, left knee, initial encounter Qualifiers: Tear current or old: current Encounter type: initial encounter Meniscus tear of knee type: unspecified type Qualified Code(s): S83.242A - Other tear of medial meniscus, current injury, left knee, initial encounter Plan: Discussed meniscus tears with patient. Referred her to Orthopedics Plan I spent 15 minutes reviewing patient's chart, evaluating patient, counseling patient and documenting in the chart Orders: Referrals Orthopedics Referral S83.242A - Other tear of medial meniscus, current injury, left knee, initial encounter Coding Level of Care Code Est Pt Level 3 (60939) Diagnoses Tear of medial meniscus of left knee, current, unspecified tear type, initial encounter S83.242A Tear current or old: current Encounter type: initial encounter Meniscus tear of knee type: unspecified type
[2023-04-24 11:08] VITALS: BP 114/66; PULSE 90; O2SAT 97; BMI 31.7
== END 2023-04-24 11:32 | disposition home or self-care (01) ==
LOC: HO.RHE 10:42
PROVIDERS: PCP Nurse Practitioner Primary Care; Visit Provider Student in an Organized Health Care Education/Training Program
DX: S83.242A Other tear of medial meniscus, current injury, left knee, initial encounter (principal)
CPT/HCPCS: 99213

== ENCOUNTER → 2023-04-24 10:41 | Outpatient (BNVA) | payer OTHER, SELFPAY | PROVIDERS: PCP Nurse Practitioner Primary Care; Visit Provider Student in an Organized Health Care Education/Training Program | DX: S83.242D Other tear of medial meniscus, current injury, left knee, subsequent encounter (principal) | CPT/HCPCS: 99212 ==

== ENCOUNTER 2023-04-25 12:00 | Outpatient (AMB) | payer OTHER, SELFPAY ==
--- NOTE | 2023-04-25 12:14 | A.OFFVIS_ITS ---
Intake Vital Signs 04/25/23 12:21 Height 5 ft 6 in Weight 199 lb 4.766 oz BMI 32.2 BP 125/80 Blood Pressure Location Lt brachial Position Sitting Pulse 88 Intake Visit Reasons: 6 month fu Intake Note: Patient in office today in 6 months follow up of constipation. CC: She states she sometimes gets constipation, and heartburn. Denies other GI symptoms. 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 Information Interpreted: clinical only Accompanied by: Self / Same As Patient Allergies aspirin [Aspirin] Allergy (Mild, Verified 04/25/23 12:25) ITCHY THROAT azithromycin Allergy (Unknown, Verified 04/25/23 12:25) Unknown naproxen Allergy (Unknown, Verified 04/25/23 12:25) Unknown simvastatin Allergy (Unknown, Verified 04/25/23 12:25) Unknown Fish Containing Products Allergy (Verified 04/25/23 12:25) Swelling onion [ONION] Adverse Reaction (Mild, Verified 04/25/23 12:25) RED FACE HPI 6 month fu HPI Details Assessment & Plan (1) OKEEFE (nonalcoholic steatohepatitis): Comment: LABS; 07/2011 LIver panel is totally normal, hemoglobin A1c covers around 7, alpha fetoprotein tumor marker at baseline is 1.6, 05/2018 autoimmune workup is negative, ferritin is normal at 49, she is immune to hepatitis a B and negative for hepatitis C. CURRENT LABS 08/22/22 Plt Count 312 Hgb A1c (Clinic) 7.7 H Total Bilirubin 0.3 AST 27 ALT 31 Alkaline Phosphatase 93 Alpha Fetoprotein 2.1 ULTRASOUND OF THE ABDOMEN 09/27/22? : FINDINGS: PANCREAS: Visualized portions of the pancreas are unremarkable. The pancreatic tail is obscured by bowel gas. ABDOMINAL AORTA: Atherosclerosis of the abdominal aorta. Dilated infrarenal abdominal aorta measuring 2.7 cm in diameter. INFERIOR VENA CAVA: Visualized portions are normal. LIVER: Liver is borderline enlarged measuring 16.5 cm in span decreased from prior previously 19.3 cm.. The liver contour is normal. Increased hepatic echogenicity which can be seen in the setting of hepatic steatosis or underlying liver disease.? No focal hepatic lesion. There is no intrahepatic biliary duct dilatation seen. GALLBLADDER: Normal. The gallbladder is physiologically distended without evidence of stones, sludge, polyps, wall thickening or pericholecystic fluid. COMMON BILE DUCT: Dilated for age measuring 0.9 cm in diameter, not increased in size from prior previously 1.0 cm. RIGHT KIDNEY: Normal. No hydronephrosis. No renal calculi or focal parenchymal lesions. The kidney measures 10.6 cm in maximum dimension. LEFT KIDNEY: Benign-appearing renal cyst measuring 3.3 cm. No follow up imaging is recommended. No hydronephrosis or renal calculi. The kidney measures 11.4 cm in maximum dimension. SPLEEN: Normal. The spleen measures 7.6 cm in maximum dimension. FREE FLUID: None. US/US abdomen complete IMPRESSION: *? Increased hepatic echogenicity which can be seen in the setting of hepatic steatosis or underlying liver disease. Liver is borderline enlarged, decreased from prior. ? *? Dilated infrarenal abdominal aorta measuring 2.7 cm in diameter. Atherosclerosis of the abdominal aorta. Recommend followup every 5 years. Reference: J Am Bull Radiol 2013; 10 (10): 789-794. ? *? Common bile duct is dilated for age measuring 0.9 cm another node increased from prior. No intrahepatic biliary duct dilatation. Consider correlation with LFTs and MRCP if warranted clinicall Code(s): K75.81 - Nonalcoholic steatohepatitis (OKEEFE) Plan: MONGOLIAN #Veronica, Live. She was anxious to hear about her liver. I review the results and she seems to be stable. She asks if she can have beer at [place] and this is okay - she should not drink every day. We again review diet and wt loss along with sugar control to best control her OKEEFE. She has been eating more salads and trying to avoid what bread and white rice. This is morton to controlling her CIC. She says she was just started on Ozempic and was taking it but got scared when I read the recent news. I think this was the new about possible gastroparesis, and having this permanently is quite rare. I encourage her to continue this. When she was on it in the past she tolerated it well. She continues on her Trulance, senna, Reglan, and omeprazole and is now satisfied with her GI regimen. ROV 6 mos. (2) Chronic idiopathic constipation: Code(s): K59.04 - Chronic idiopathic constipation (3) GERD (gastroesophageal reflux diseas e): Code(s): K21.9 - Gastro-esophageal reflux disease without esophagitis CORRESPONDENCE On 12/03/22 @ 10:54 Umm Ellsworth Wrote To JodeeUmm (2) Ahhhh...so Ozempic causes delayed gastric emtying and constipation. I can't do much about this. She may need to speak with the prescriber...... On 12/03/22 @ 10:44 Maty Ramirez Wrote To JodeeMay Patient notified per message below. She states that she stopped eating white bread and rice but she has been having a burning sensation from her stomach, nausea, low blood sugars (70), and constipation since she started taking Ozempic. Please advise. On 12/02/22 @ 14:34 Umm Ellsworth Wrote To Maty Ramirez Tell her to stop eating white bread and white rice! She will know what I mean. Medication Orders peg 3350-electroly ugo 236-22.74-6.74 -5.86 gram 240 mL PO Q10M 4,0 00 mL 0RF 1 day Refilled On 11/29/22 @ 12:11 Meaghan Montano Wrote To Jodee She states she has not been able to use the bathroom she wants to know if you could please send her meds to help. Thanks TODAY'S VISIT MONGOLIAN #Juan Live She has been doing well. She had her dose of Ozempic lowered r/t nausea and CIC. This has been helping her lose weight. She had one episode of CIC after eating white rice. She has been having knee problems, and will be seeing ortho next week. She continues on her Trulance, senna, Reglan, and omeprazole and is now satisfied with her GI regimen. Return office visit in 6 months [facility] Medical History (Updated 04/25/23 @ 12:19 by FABIAN Yang) Preop pulmonary/respiratory exam Well woman exam with routine gynecological exam Renal calculi UTI (urinary tract infection) Allergic rhinitis Anxiety and depression Fibromyalgia HTN (hypertension) PTSD (post-traumatic stress disorder) Vertigo Diabetes Chest pain Spondylosis of cervical region without myelopathy or radiculopathy Bronchitis COPD exacerbation Low vitamin D level Non-toxic multinodular goiter Hypothyroidism DVT (deep venous thrombosis) Cocaine abuse Surgical History History of esophagogastroduodenoscopy (EGD) H/O colonoscopy with polypectomy History of selective injection of anesthetic agent around lumbar nerve root Hx of right breast biopsy History of hysterectomy History of lithotripsy Family History Father No problems noted. 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 Female Reproductive History Menstrual Age of Menarche: 10 Review of Systems Const Denies fatigue, Denies fever(s), Denies night sweats, Denies poor appetite and Reports weight loss ENT Reports Normal hearing present, Denies dental pain, Denies dysphagia, Denies hearing loss, Denies mouth pain, Denies odynophagia, Denies throat swelling, Denies tongue swelling and Reports other (Dentition adequate) Card Reports no additional complaints Resp Reports no additional complaints GI Details: Denies abdominal pain, Denies melena, Denies bloating, Denies hematochezia, Reports constipation, Denies GI cramping, Denies dysphagia, Denies excessive flatus, Denies early satiety, Reports heartburn, Denies diarrhea, Denies nausea, Denies odynophagia, Denies vomiting and Denies hematemesis Skin/Breast Denies pruritus, Denies lesions, Denies rash and Denies jaundice Neuro Reports Normal hearing present and Denies Abnormal speech present Endo Denies fatigue Aller/Immun Denies throat swelling and Denies tongue swelling Physical Exam Vital Signs: Last Vital Signs Pulse 88 04/25/23 12:21 BP 125/80 04/25/23 12:21 BMI result Body Mass Index 32.2 Const General: cooperative, no acute distress, well developed and well groomed Nutritional Appearance: well nourished and obese Orientation/consciousness: oriented to person, oriented to place and oriented to time Limitations: language barrier HEENT Head: Yes normocephalic and Yes atraumatic Eyes General: appearance normal, both eyes and all related structures Pupils: Equal, round and reactive pupils present Neck Neck: Yes normal visual inspection and Yes no lymphadenopathy Thyroid: Thyroid normal Resp Effort & Inspection: normal respiratory effort and able to speak in complete sentences Auscultation: clear to auscultation bilaterally Cardio Rate: regular rate Rhythm: regular rhythm Heart sounds: Normal, physiologic split S2 sound present Peripheral pulses: radial pulses present and posterior tibial pulses present GI Inspection: No distended, Yes Abdominal panniculus present and Yes obesity Palpation (GI): Soft to palpation, nontender, no guarding, not rigid and No hepatosplenomegaly present Percussion: Yes normal to percussion Auscultation: normal bowel sounds Rectal Exam - Female: deferred Skin General skin exam: no rashes or lesions noted, turgor normal, skin not dry, no jaundice, No spider nevi and no striae Rashes: no rashes Nails: normal Neuro General: oriented to person, oriented to place and oriented to time Cranial nerves: Yes Equal, round and reactive pupils present and Yes Normal hearing present Speech: No Abnormal speech present Extrem General: Yes normal to inspection, No clubbing, No cyanosis and No edema Psych Appearance: grossly normal and well kempt Mental Status: mental status grossly normal Speech and movement: Normal speech and movement present Affect: normal affect Attitude: cooperative Thought process: Normal thought process present and not confabulating Thought content: Normal thought content present Insight: Limited insight present (Psych) Judgement: Limited judgement present (Psych) Assessment & Plan Assessment & Plan (1) Small bowel motility disorder: Code(s): K59.9 - Functional intestinal disorder, unspecified (2) Chronic idiopathic constipation: Code(s): K59.04 - Chronic idiopathic constipation (3) GERD (gastroesophageal reflux disease): Code(s): K21.9 - Gastro-esophageal reflux disease without esophagitis (4) OKEEFE (nonalcoholic steatohepatitis): Comment: LABS; 07/2011 LIver panel is totally normal, hemoglobin A1c covers around 7, alpha fetoprotein tumor marker at baseline is 1.6, 05/2018 autoimmune workup is negative, ferritin is normal at 49, she is immune to hepatitis a B and negative for hepatitis C. CURRENT LABS 08/22/22 Plt Count 312 Hgb A1c (Clinic) 7.7 H Total Bilirubin 0.3 AST 27 ALT 31 Alkaline Phosphatase 93 Alpha Fetoprotein 2.1 ULTRASOUND OF THE ABDOMEN 09/27/22? : FINDINGS: PANCREAS: Visualized portions of the pancreas are unremarkable. The pancreatic tail is obscured by bowel gas. ABDOMINAL AORTA: Atherosclerosis of the abdominal aorta. Dilated infrarenal abdominal aorta measuring 2.7 cm in diameter. INFERIOR VENA CAVA: Visualized portions are normal. LIVER: Liver is borderline enlarged measuring 16.5 cm in span decreased from prior previously 19.3 cm.. The liver contour is normal. Increased hepatic echogenicity which can be seen in the setting of hepatic steatosis or underlying liver disease.? No focal hepatic lesion. There is no intrahepatic biliary duct dilatation seen. GALLBLADDER: Normal. The gallbladder is physiologically distended without evidence of stones, sludge, polyps, wall thickening or pericholecystic fluid. COMMON BILE DUCT: Dilated for age measuring 0.9 cm in diameter, not increased in size from prior previously 1.0 cm. RIGHT KIDNEY: Normal. No hydronephrosis. No renal calculi or focal parenchymal lesions. The kidney measures 10.6 cm in maximum dimension. LEFT KIDNEY: Benign-appearing renal cyst measuring 3.3 cm. No follow up imaging is recommended. No hydronephrosis or renal calculi. The kidney measures 11.4 cm in maximum dimension. SPLEEN: Normal. The spleen measures 7.6 cm in maximum dimension. FREE FLUID: None. US/US abdomen complete IMPRESSION: *? Increased hepatic echogenicity which can be seen in the setting of hepatic steatosis or underlying liver disease. Liver is borderline enlarged, decreased from prior. ? *? Dilated infrarenal abdominal aorta measuring 2.7 cm in diameter. Atherosclerosis of the abdominal aorta. Recommend followup every 5 years. Reference: J Am Bull Radiol 2013; 10 (10): 789-794. ? *? Common bile duct is dilated for age measuring 0.9 cm another node increased from prior. No intrahepatic biliary duct dilatation. Consider correlation with LFTs and MRCP if warranted clinicall Code(s): K75.81 - Nonalcoholic steatohepatitis (OKEEFE) Plan MONGOLIAN #Tachira Live She has been doing well. She had her dose of Ozempic lowered r/t nausea and CIC. This has been helping her lose weight. She is agreeable to doing more blood work and ultrasound for her OKEEFE monitoring. She had one episode of CIC after eating white rice. She has been having knee problems, and will be seeing ortho next week. She continues on her Trulance, senna, Reglan, and omeprazole and is now satisfied with her GI regimen. Return office visit in 6 months Orders: Orders Alpha Fetoprotein 04/25/23 K75.81 - Nonalcoholic steatohepatitis (OKEEFE) Comprehensive Met. Panel 04/25/23 K75.81 - Nonalcoholic steatohepatitis (OKEEFE) US abdomen complete 04/25/23 K75.81 - Nonalcoholic steatohepatitis (OKEEFE) Medications: Refilled plecanatide (Trulance) 3 mg PO DAILY 30 tabs 6RF omeprazole 20 mg PO BID@0630,1630 60 caps 6RF sennosides (senna) 17.2 mg (2 x 8.6 mg) PO BEDTIME 60 tabs 6RF constipation metoclopramide HCl 10 mg PO TID 90 tabs 6RF K59.9 - Functional intestinal disorder, unspecified docusate sodium 100 mg PO BID 30 days 60 caps 6RF K59.04 - Chronic idiopathic constipation Discontinued peg 3350-electrolytes 236-22.74-6.74 -5.86 gram (Golytely) until fecal effluent is clear; do not exceed a total volume of 2,000 mL Discontinued Reason: Doctor's Order 240 mL PO Q10M 1 day 4,000 mL 0RF Z12.11 - Encounter for screening for malignant neoplasm of colon Coding Level of Care Code Est Pt Level 3 (27554) Diagnoses Small bowel motility disorder K59.9 Chronic idiopathic constipation K59.04 GERD (gastroesophageal reflux disease) K21.9 OKEEFE (nonalcoholic steatohepatitis) K75.81
[2023-04-25 12:21] VITALS: BP 125/80; PULSE 88; BMI 32.2
== END 2023-04-25 12:53 | disposition home or self-care (01) ==
PROVIDERS: PCP Nurse Practitioner Primary Care; Visit Provider Nurse Practitioner
DX: K59.9 Functional intestinal disorder, unspecified (principal); K59.04 Chronic idiopathic constipation; K21.9 Gastro-esophageal reflux disease without esophagitis; K75.81 Nonalcoholic steatohepatitis (NASH)
CPT/HCPCS: 99213

== ENCOUNTER 2023-04-25 12:00 | Outpatient (REF) | payer OTHER, SELFPAY ==
[2023-04-25 14:45] LABS: Alanine Aminotransferase 43 U/L (0-31); Albumin Level 4.1 g/dL (3.5-5.0); Alkaline Phosphatase 87 U/L (39-117); Anion Gap 10 (12-20); Aspartate Amino Transferase 35 U/L (5-31); Bilirubin Total 0.3 mg/dL (0.0-1.0); Blood Urea Nitrogen 14 mg/dL (9-16); Calcium 9.6 mg/dL (8.4-10.2); Carbon Dioxide 25 mmol/L (22-29); Chloride 113 mmol/L (96-108); Estimated Glomerular Filt Rate 58; Glucose Random 131 mg/dL (60-115); Potassium 3.9 mmol/L (3.3-5.1); Sodium 144 mmol/L (135-145)
[2023-04-28 12:57] LABS: Alpha Fetoprotein 1.8 ng/mL
== END 2023-04-25 12:01 | disposition home or self-care (01) ==
LOC: HO.LAB 12:00
PROVIDERS: PCP Nurse Practitioner Primary Care; Visit Provider Nurse Practitioner
DX: K75.81 Nonalcoholic steatohepatitis (NASH) (principal); K59.04 Chronic idiopathic constipation; K21.9 Gastro-esophageal reflux disease without esophagitis; K59.9 Functional intestinal disorder, unspecified
CPT/HCPCS: 36415; 80053; 82105; 99212

== ENCOUNTER 2023-05-06 08:57 | Outpatient (REF) | payer OTHER, SELFPAY ==
[2023-05-06 09:05] VITALS: BP 123/80; PULSE 79; RESP 20; TEMP 36.6; O2SAT 96
[2023-05-06] MEDS: Omalizumab 150 MG/ML SYRINGE 300 MG SUBCUT (09:10)
== END 2023-05-06 08:58 | disposition home or self-care (01) ==
LOC: HO.MDS 08:57
PROVIDERS: Visit Provider Internal Medicine Pulmonary Disease
DX: J45.50 Severe persistent asthma, uncomplicated (principal)
CPT/HCPCS: 96372

== ENCOUNTER 2023-05-12 12:56 | Outpatient (AMB) | payer OTHER, SELFPAY ==
[2023-05-12 13:00] VITALS: BMI 32.1
--- NOTE | 2023-05-12 13:00 | MHC.OFFVIS ---
Intake Vital Signs 05/12/23 13:00 Height 5 ft 6 in Weight 199 lb BMI 32.1 Intake Visit Reasons: New Pt - Left Knee OA Intake Note: Nuvia is a 62 year old female who presents today for a follow up of her left knee patellofemoral OA. She was last seen with Rupali , where she declined injections and proceeded with PT and NSAIDS. Patient reports that she has not done physical therapy, she is interested in an injection today. She would like to get an allergy shot today as well and is unsure if this can be done in the same day/ Allergies aspirin [Aspirin] Allergy (Mild, Verified 04/25/23 12:25) ITCHY THROAT azithromycin Allergy (Unknown, Verified 04/25/23 12:25) Unknown naproxen Allergy (Unknown, Verified 04/25/23 12:25) Unknown simvastatin Allergy (Unknown, Verified 04/25/23 12:25) Unknown Fish Containing Products Allergy (Verified 04/25/23 12:25) Swelling onion [ONION] Adverse Reaction (Mild, Verified 04/25/23 12:25) RED FACE HPI New Pt - Left Knee OA HPI Details This is a 62-year-old woman with a 3 month history of left knee pain. She describes pain and discomfort and giving way when she twists. She is does well for most of the day but has episodes in which she has sharp pain that causes her leg to give way. She thinks she may have injured her knee not sure. When she does have pain localized to the medial aspect of her left knee. [facility] [place] Medical History (Updated 04/25/23 @ 12:19 by FABIAN Yang) Preop pulmonary/respiratory exam Well woman exam with routine gynecological exam Renal calculi UTI (urinary tract infection) Allergic rhinitis Anxiety and depression Fibromyalgia HTN (hypertension) PTSD (post-traumatic stress disorder) Vertigo Diabetes Chest pain Spondylosis of cervical region without myelopathy or radiculopathy Bronchitis COPD exacerbation Low vitamin D level Non-toxic multinodular goiter Hypothyroidism DVT (deep venous thrombosis) Cocaine abuse Surgical History History of esophagogastroduodenoscopy (EGD) H/O colonoscopy with polypectomy History of selective injection of anesthetic agent around lumbar nerve root Hx of right breast biopsy History of hysterectomy History of lithotripsy Family History Father No problems noted. 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 Resp Other: No audible wheezing Effort & Inspection: normal respiratory effort Cardio Other: Radial pulse palpable with no rythmic abnormalities Back/Spine/Pelvis Cervical Spine: normal cervical lordosis Skin General skin exam: no rashes or lesions noted Neuro General: no focal motor deficits Extrem Other: Full Range of motion left knee No effusion Tenderness palpation medial joint line Positive medial Elvia's Psych Appearance: grossly normal and well kempt Mental Status: mental status grossly normal Speech and movement: Normal speech and movement present Affect: normal affect Attitude: cooperative Results Reviewed Results Reviewed: I personally reviewed the MR images. There is an oblique tear of the medial meniscus. Assessment & Plan Assessment & Plan (1) Tear of medial meniscus of left knee: Code(s): S83.242A - Other tear of medial meniscus, current injury, left knee, initial encounter Qualifiers: Tear current or old: current Encounter type: initial encounter Meniscus tear of knee type: unspecified type Qualified Code(s): S83.242A - Other tear of medial meniscus, current injury, left knee, initial encounter Plan: This is a 62-year-old woman with left knee medial meniscus tear for 3-4 months at least. She continues to be symptomatic and I recommend knee arthroscopy. I discussed this with her. I discussed the procedure in detail and I discussed the risks benefits and alternatives including but not limited to the risk of pain, infection, stiffness, need for further surgery as well as potential medical complications such as blood clots, pulmonary embolism and cardiac complications. She expressed understanding and we will proceed forward accordingly. Coding Level of Care Code New Pt Level 4 (84101) Diagnoses Tear of medial meniscus of left knee, current, unspecified tear type, initial encounter S83.242A Tear current or old: current Encounter type: initial encounter Meniscus tear of knee type: unspecified type
== END 2023-05-12 13:21 | disposition home or self-care (01) ==
LOC: HO.HOS 12:56
PROVIDERS: PCP Nurse Practitioner Primary Care; Visit Provider Orthopaedic Surgery
DX: S83.242A Other tear of medial meniscus, current injury, left knee, initial encounter (principal)
CPT/HCPCS: 99214

== ENCOUNTER → 2023-05-12 12:56 | Outpatient (BNVA) | payer OTHER, SELFPAY | PROVIDERS: PCP Nurse Practitioner Primary Care; Visit Provider Orthopaedic Surgery | DX: S83.242A Other tear of medial meniscus, current injury, left knee, initial encounter (principal) | CPT/HCPCS: 99212 ==

== ENCOUNTER 2023-05-15 08:47 | Outpatient (REF) | payer OTHER, SELFPAY ==
--- NOTE | ~2023-05-15 | US_ITS ---
EXAMINATION: US ABDOMEN COMPLETE CLINICAL INFORMATION: Nonalcoholic steatohepatitis (OKEEFE). COMPARISON: Ultrasound abdomen complete 09/26/2022. Renal ultrasound 09/17/2022. CT abdomen and pelvis 02/01/2022. X-ray KUB 05/15/2017 and 04/21/2017. TECHNIQUE: Real-time imaging of the abdominal viscera. Limited visualization due to bowel gas. FINDINGS: PANCREAS: Limited visualization of pancreatic tail and head. Imaged portion of pancreatic body is unremarkable. ABDOMINAL AORTA: Atherosclerosis in the distal abdominal aorta with AP diameter of 2.5 cm. INFERIOR VENA CAVA: Visualized portions are normal. LIVER: Hepatomegaly, 16.1 cm. Increased hepatic parenchymal heterogeneity and echogenicity could be associated with hepatocellular disease/hepatic steatosis and substantially limits visualization. Correlation with liver function tests and clinical exam recommended to determine further management. GALLBLADDER: No gallstones. No gallbladder wall thickening. COMMON BILE DUCT: Normal in caliber measuring 0.8 cm in diameter. RIGHT KIDNEY: No hydronephrosis. No renal calculi. Limited visualization. The kidney measures 7.3 cm in maximum dimension. LEFT KIDNEY: 2.7 x 2.5 x 3.3 cm upper pole cyst. There is no indication for additional imaging at this time. No hydronephrosis. No renal calculi. Limited visualization. The kidney measures 10.5 cm in maximum dimension. SPLEEN: Normal. The spleen measures 9.5 cm in maximum dimension. FREE FLUID: None. US/US abdomen complete IMPRESSION: 1. Hepatomegaly, 16.1 cm. Increased hepatic parenchymal heterogeneity and echogenicity could be associated with hepatocellular disease/hepatic steatosis and substantially limits visualization. Correlation with liver function tests and clinical exam recommended to determine further management. 2. Atherosclerosis in the distal abdominal aorta with AP diameter of 2.5 cm.
== END 2023-05-15 08:48 | disposition home or self-care (01) ==
LOC: HO.US 08:47
PROVIDERS: PCP Nurse Practitioner Primary Care; Visit Provider Nurse Practitioner
DX: K75.81 Nonalcoholic steatohepatitis (NASH) (principal)
CPT/HCPCS: 76700

== ENCOUNTER 2023-05-26 15:59 | Outpatient (REF) | payer OTHER, SELFPAY ==
[2023-05-26 18:05] LABS: TSH reflex Free T4 1.52 uIU/mL (0.32-4.0)
== END 2023-05-26 16:00 | disposition home or self-care (01) ==
LOC: HO.HHCL 15:59
PROVIDERS: Visit Provider Nurse Practitioner Primary Care
DX: E03.9 Hypothyroidism, unspecified (principal)
CPT/HCPCS: 36415; 84443

== ENCOUNTER 2023-06-02 12:58 | Emergency (ER) | payer OTHER, SELFPAY ==
--- NOTE | 2023-06-02 | ECG_ITS ---
Test Reason : cp Blood Pressure : / mmHG Vent. Rate : 101 BPM Atrial Rate : 101 BPM P-R Int : 194 ms QRS Dur : 096 ms QT Int : 360 ms P-R-T Axes : 046 -55 042 degrees QTc Int : 466 ms Sinus tachycardia Left anterior fascicular block Minimal voltage criteria for LVH, may be normal variant ( Bala product ) Abnormal ECG When compared with ECG of 10-MAR-2023 17:23, NE interval has decreased Referred By: Generic ED Physician Electronically Signed By:LIVE YANEZ
--- NOTE | ~2023-06-02 | XR_ITS ---
EXAMINATION: XR CHEST CLINICAL INFORMATION: Cough. COMPARISON: Chest radiograph dated 11/18/2022. TECHNIQUE: 2 views of the chest were obtained. FINDINGS: The trachea is in normal anatomic position. Heart size is normal. There is calcific atherosclerotic disease of the aorta. Both lungs are clear. No pleural effusion. No pneumothorax. No acute osseous abnormality. XR/XR chest 2V IMPRESSION: No acute cardiopulmonary disease.
[2023-06-02 13:47] VITALS: BP 118/73; PULSE 95; RESP 20; TEMP 37.1; O2SAT 95; BMI 35.3
--- NOTE | 2023-06-02 13:50 | ED.GENADULT ---
HPI - General Adult General Chief complaint: Chest Pain Stated complaint: Chest pain/Asthma Time Seen by Provider: 06/02/23 16:54 Source: patient Mode of arrival: ambulatory Limitations: no limitations History of Present Illness HPI narrative: Patient is a 62-year-old female who presents to the emergency department for a productive cough with blood-tinged/purulent mucus which is changed from her baseline, shortness of breath notably with exertion, diffuse anterior chest pain during episodes of coughing. She reports this has been ongoing for approximately 1 week. She states that she received a prescription for prednisone which she has been taking for 5 days in addition to azithromycin prescribed by her doctor and reports minimal improvement. She denies any fevers, chills, dizziness, lightheadedness, nausea, vomiting, abdominal pain. Related Data Home Medications ?Medication ?Instructions ?Recorded ?Confirmed calcium carbonate 600 mg-vitamin 1 tab PO BID 11/20/19 02/18/23 D3 10 mcg (400 unit) tablet potassium chloride 20 mEq 20 meq PO BID 11/20/19 02/18/23 tablet,extended release(part/cryst) risperidone 0.5 mg tablet 0.5 mg PO BID 11/20/19 02/18/23 zolpidem 10 mg tablet 10 mg PO BEDTIME PRN Insomnia 11/20/19 02/18/23 clonazepam 1 mg tablet (Klonopin) 1 mg PO DAILY 03/08/20 02/18/23 montelukast 10 mg tablet 10 mg PO BEDTIME 03/08/20 02/18/23 multivitamin-ferrous 1 tab PO DAILY 07/06/21 02/18/23 fumarate-folic acid 18 mg-400 mcg tablet (Certavite-Antioxidant) fluoride (sodium) 1.1 % dental appl PO 10/16/21 02/18/23 cream (SF 5000 Plus) buspirone 7.5 mg tablet 7.5 mg PO BID 01/31/22 02/18/23 tramadol 50 mg tablet 50 mg PO BID PRN 01/31/22 02/18/23 diclofenac sodium 1 % topical gel g topical 05/07/22 02/18/23 acetaminophen 325 mg tablet 325 mg PO PRN pain 06/11/22 02/18/23 Previous Rx's ?Medication ?Instructions ?Recorded leg brace (Knee Support Brace) #2 ea 01/20/21 blood-glucose meter (FreeStyle #1 ea 02/28/22 Flash System kit) semaglutide 1 mg/dose (4 mg/3 mL) 1 mg (0.75 mL) subcut QWEEK #3 mL 09/04/22 subcutaneous pen injector (Ozempic) pen needle, diabetic 32 gauge x ##100 10/01/22 (UltiCare Pen Needle) fluticasone 250 mcg-salmeterol 50 1 ea inhalation BID 30 days #60 ea 10/02/22 mcg/dose blistr powdr for inhalation lidocaine 5 % topical patch 1 patch topical DAILY #15 ea 10/20/22 flash glucose sensor (FreeStyle #2 ea 11/28/22 Jalil 2 Sensor kit) clotrimazole-betamethasone 1 1 appl topical BID itching 7 days 12/25/22 %-0.05 % topical cream #45 grams miconazole nitrate 4 % (200 mg)-2 1 appful vaginal BEDTIME 3 days 12/25/22 % (9 gram)vaginal,prefill #24 grams appl,cream (Monistat 3) gabapentin 400 mg capsule 400 mg PO BEDTIME #30 caps 01/01/23 dextrose 40 % oral gel (Glutose-15) 15 g PO DIRECTED for 02/04/23 hypoglycemia #112.5 grams hydrocortisone 2.5 % topical cream 1 appl MO BID hemorrhoids #30 grams 02/04/23 with perineal applicator (Proctosol HC) albuterol sulfate 90 mcg/actuation 2 puff inhalation Q4-6H PRN for 02/11/23 aerosol inhaler (Ventolin HFA) wheezing #18 grams pyridoxine (vitamin B6) 100 mg 100 mg PO DAILY #90 tabs 03/04/23 tablet Lactobacil rhamnosus GG 10 billion 1 cap PO DAILY #30 caps 03/27/23 cell-inulin 200 mg sprinkle capsule ([facility] [employer] [facility]) levothyroxine 75 mcg tablet 75 mcg PO QAM #90 tabs 04/14/23 docusate sodium 100 mg capsule 100 mg PO BID 30 days #60 caps 04/25/23 metoclopramide HCl 10 mg tablet 10 mg PO TID #90 tabs 04/25/23 omeprazole 20 mg capsule,delayed 20 mg PO BID@0630,1630 #60 caps 04/25/23 release plecanatide 3 mg tablet (Trulance) 3 mg PO DAILY #30 tabs 04/25/23 sennosides 8.6 mg tablet (senna) 17.2 mg (2 x 8.6 mg) PO BEDTIME 04/25/23 constipation #60 tabs flash glucose scanning reader #1 ea 05/07/23 (FreeStyle Jalil 2 Somers) ipratropium 20 mcg-albuterol 100 1 puff inhalation QID #4 grams 05/09/23 mcg/actuation mist for inhalation (Combivent Respimat) tiotropium bromide 18 mcg capsule 1 cap inhalation DAILY #30 caps 05/09/23 with inhalation device (Spiriva with HandiHaler) blood sugar diagnostic (FreeStyle #100 strips 05/14/23 Lite Strips) lancets 33 gauge (TRUEplus Lancets) #100 ea 05/14/23 omalizumab 150 mg subcutaneous 300 mg subcut Q2W 28 days #4 ea 05/19/23 solution levofloxacin 750 mg tablet 750 mg PO DAILY #7 tabs 05/28/23 prednisone 20 mg tablet 40 mg (2 x 20 mg) PO DAILY #10 tabs 05/28/23 doxycycline hyclate 100 mg capsule 100 mg PO BID #13 caps 06/02/23 Allergies Allergy/AdvReac Type Severity Reaction Status Date / Time aspirin [Aspirin] Allergy Mild ITCHY Verified 06/02/23 13:48 THROAT azithromycin Allergy Unknown Unknown Verified 06/02/23 13:48 naproxen Allergy Unknown Unknown Verified 06/02/23 13:48 simvastatin Allergy Unknown Unknown Verified 06/02/23 13:48 Fish Containing Products Allergy Swelling Verified 06/02/23 13:48 onion [ONION] AdvReac Mild RED FACE Verified 06/02/23 13:48 Review of Systems Review of Systems: Yes all other systems are reviewed and are negative [facility] Past Medical History Attestation statement: The following information was validated with the patient. Source: old records reviewed Medical History Preop pulmonary/respiratory exam Well woman exam with routine gynecological exam Renal calculi UTI (urinary tract infection) Allergic rhinitis Anxiety and depression Fibromyalgia HTN (hypertension) PTSD (post-traumatic stress disorder) Vertigo Diabetes Chest pain Spondylosis of cervical region without myelopathy or radiculopathy Bronchitis COPD exacerbation Low vitamin D level Non-toxic multinodular goiter Hypothyroidism DVT (deep venous thrombosis) Cocaine abuse Surgical History History of esophagogastroduodenoscopy (EGD) H/O colonoscopy with polypectomy History of selective injection of anesthetic agent around lumbar nerve root Hx of right breast biopsy History of hysterectomy History of lithotripsy Family History Family History Father No problems noted. 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 No acute distress.?Normal affect. Eyes: Pupils equal, round and reactive to light.? ENT: Pharynx normal.?? Neck: Normal inspection.? Neck supple.?? CVS: Heart sounds normal. Normal heart rate and rhythm.? Pulses normal.?? Respiratory: No respiratory distress.? Lung sounds with rhonchi bilaterally?? Abdomen: Soft and non-tender. Normoactive bowel sounds. Skin: Skin warm and dry.? Normal skin color.? ? Extremities: No lower extremity edema.? No calf ttp? Neuro: Moves all extremities spontaneously. Sensation intact bilaterally. CN II-XII intact. No focal neuro deficits. Ambulates with normal steady gait. Course Course Course Narrative: RME- 62-year-old female presents for evaluation of cough, shortness of breath, chest pain. She reports that she is also ?coughing up yellow mucus mixed with blood. ? Patient reports that she is on antibiotics and prednisone and is not improving. Plan for x-ray viral swabs, labs Medical Decision Making Medical Decision Making [facility] Narrative: Patient is a 62-year-old female with past medical history of hypertension, hyperlipidemia, type 2 diabetes, anxiety, PTSD, GERD, hypothyroidism, severe persistent allergic asthma/COPD overlap syndrome environmental allergies and former 30+ pack-year smoker presenting to emergency department for evaluation of persistent cough shortness of breath and chest discomfort as per HPI. At the time my examination she appears overall well, no respiratory distress. She is speaking clear full sentences. She does report a change in her sputum from baseline, despite recently being treated with azithromycin and prednisone which she is on her 5th day of. Her outpatient regimen includes Spiriva, Advair, DuoNebs, Combivent, and an albuterol MDI. Reviewed labs obtained prior to my assumption of care; no leukocytosis, no anemia, CMP is overall unremarkable. High sensitive troponin is below detectable limits. Her viral testing is negative. Her EKG reveals a sinus tachycardia with ventricular rate of 101, QTC 466, no ST elevation, no ST depression, no acute ischemic changes, overall appears consistent with prior EKGs. Chest x-ray is without acute pulmonary abnormality; no pneumonia, no pleural effusions.. Doubt symptoms are secondary to ACS. Concern for viral syndrome versus COPD exacerbation. She has not hypoxic, ambulatory O2 trial reveals no evidence of hypoxia or indication for admission. She would like to be discharged home which I feel is reasonable. She received the 1st dose of doxycycline while in the emergency department and I have sent a prescription to her pharmacy for the remainder. We discussed strict return precautions. All questions were answered. Differential Diagnosis Differential Diagnoses: The differential diagnosis associated with the presentation includes (See narrative above) Admission/Observation Consideration of admission/observation: Escalation of care including admission/observation considered (See narrative above) Lab Data [facility] Lab Attestation statement: I reviewed the patient's lab results. (See narrative above) 06/02/23 15:34 06/02/23 15:34 Labs: Lab Results 06/02/23 Range/Units 15:34 WBC 6.0 (4.8-10.8) X10*3/uL RBC 4.34 (4.20-5.50) X10*6/uL Hgb 13.9 (12.0-16.0) g/dl Hct 40.8 (37.0-47.0) % MCV 94.0 (80.0-98.0) fL MCH 32.0 (27.0-33.0) pg MCHC 34.1 (31.0-35.0) g/dl RDW 13.6 (11.0-16.0) % Plt Count 275 (160-400) X10*3/uL MPV 9.5 (9.4-12.3) fL Immature Gran % (Auto) 0.2 (0.0-0.4) % Neut % (Auto) 84.8 H (45-73) % Lymph % (Auto) 12.6 L (20-40) % [place] % (Auto) 2.0 (2-11) % Eos % (Auto) 0.2 (0-4) % Baso % (Auto) 0.2 (0-2) % Lymph # (Auto) 0.8 L (1.2-4.9) X10*3/uL [place] # (Auto) 0.1 (0.1-1.2) X10*3/uL Eos # (Auto) 0.0 (0.0-0.4) X10*3/uL Baso # (Auto) 0.0 (0.0-0.2) X10*3/uL Abs Immat Gran (auto) 0.01 (0.00-0.03) X10*3/uL Absolute Neuts (auto) 5.1 (2.0-8.3) x10*3/uL Absolute Nucleated RBC 0.000 (0.0-0.012) X10*3/uL Nucleated RBC % (auto) 0.0 (0.0-0.2) /100WBC PT 11.7 (11.1-13.3) SEC INR 1.0 (0.9-1.1) Sodium 143 (135-145) mmol/L Potassium 4.1 (3.3-5.1) mmol/L Chloride 111 H (96-108) mmol/L Carbon Dioxide 23 (22-29) mmol/L Anion Gap 13 (12-20) BUN 15 (9-16) mg/dL Creatinine 0.92 (0.5-1.4) mg/dL Estim Creat Clear Calc 67.7 Estimated GFR > 60 Random Glucose 203 H (60-115) mg/dL Calcium 9.5 (8.4-10.2) mg/dL Total Bilirubin 0.3 (0.0-1.0) mg/dL AST 29 (5-31) U/L ALT 43 H (0-31) U/L Alkaline Phosphatase 102 (39-117) U/L Troponin I High Sens < 2.7 (<3.5-17.0) ng/L Total Protein 7.4 (6.5-8.0) g/dL Albumin 4.2 (3.5-5.0) g/dL Influenza Type A (PCR) NEGATIVE (Negative) Influenza Type B (PCR) NEGATIVE (Negative) RSV RNA Qual (PCR) NEGATIVE (Negative) SARS-CoV-2 RNA (RT-PCR) NEGATIVE (Negative) Independent Interpretation I performed an independent interpretation of an: EKG (See narrative above) and Plain X-Ray (See narrative above) Radiology Impression Discussion of test interpretation with radiology: I have reviewed the radiologist's reading. Radiologist Impression: XR/XR chest 2V IMPRESSION: No acute cardiopulmonary disease. External Record Review External record reviewed: Outpatient record Prescription Management I considered prescription management with: Antibiotic Chronic Conditions Patient?s care impacted by: Diabetes, Hypertension and Other (See narrative above) Discharge Plan Discharge Clinical Impression: COPD exacerbation Patient Disposition: Home, Self-Care Instructions: COPD (Chronic Obstructive Pulmonary Disease) (ED) Prescriptions: New doxycycline hyclate 100 mg capsule 100 mg PO BID Qty: 13 0RF No Action (DME) blood-glucose meter [FreeStyle Flash System] Kit See Rx Instructions .Route Qty: 1 0RF Rx Instructions: As directed (DME) pen needle, diabetic [UltiCare Pen Needle] 32 gauge x 5/32 needle See Rx Instructions .ROUTE .COMPLEX Qty: 100 5RF Dose Instruction: USE FOUR TIMES DAILY Rx Instructions: USE FOUR TIMES DAILY fluticasone propion-salmeterol 250-50 mcg/dose blister with device 1 ea inhalation BID 30 Days Qty: 60 6RF (DME) FreeStyle Jalil 2 Sensor Kit See Rx Instructions .Route Qty: 2 4RF Rx Instructions: As directed change every 14 days miconazole nitrate [Monistat 3] 4 % (200 mg)- 2 % (9 gram) comb pack,prefill appl, cream 1 appful vaginal BEDTIME 3 Days Qty: 24 0RF clotrimazole-betamethasone 1-0.05 % cream 1 appl topical BID 7 Days Qty: 45 0RF Rx Instructions: apply externally a thin coat to the area gabapentin 400 mg capsule 400 mg PO BEDTIME Qty: 30 4RF hydrocortisone [Proctosol HC] 2.5 % cream with perineal applicator 1 appl MO BID Qty: 30 6RF Rx Instructions: BE SURE TO INCLUDE RECTAL APPICATOR!! albuterol sulfate [Ventolin HFA] 90 mcg/actuation HFA aerosol inhaler 2 puff inhalation Q4-6H PRN (Reason: for wheezing) Qty: 18 6RF pyridoxine (vitamin B6) 100 mg tablet 100 mg PO DAILY Qty: 90 3RF [facility] 10 billion cell -200 mg capsule, sprinkle 1 cap PO DAILY Qty: 30 6RF levothyroxine 75 mcg tablet 75 mcg PO QAM Qty: 90 4RF (DME) FreeStyle Jalil 2 Somers Misc See Rx Instructions .Route Qty: 1 0RF Rx Instructions: As directed Spiriva with HandiHaler 18 mcg capsule, w/inhalation device 1 cap inhalation DAILY Qty: 30 0RF Combivent Respimat 20-100 mcg/actuation mist 1 puff inhalation QID Qty: 4 0RF (DME) lancets [TRUEplus Lancets] 33 gauge misc See Rx Instructions .ROUTE .COMPLEX Qty: 100 5RF Dose Instruction: USE TEST BLOOD SUGAR FOUR TIMES DAILY Rx Instructions: USE TEST BLOOD SUGAR FOUR TIMES DAILY (DME) FreeStyle Lite Strips Strip See Rx Instructions .ROUTE .COMPLEX Qty: 100 5RF Dose Instruction: USE TEST BLOOD SUGAR FOUR TIMES DAILY Rx Instructions: USE TEST BLOOD SUGAR FOUR TIMES DAILY omalizumab 150 mg recon soln 300 mg subcut Q2W 28 Days Qty: 4 11RF Rx Instructions: requires multiple injection sites; do not exceed 150 mg per injection site prednisone 20 mg tablet 40 mg PO DAILY Qty: 10 0RF levofloxacin 750 mg tablet 750 mg PO DAILY Qty: 7 0RF Certavite-Antioxidant 18-400 mg-mcg Tablet 1 tab PO DAILY lidocaine 5 % adhesive patch,medicated 1 patch topical DAILY Qty: 15 0RF Rx Instructions: leave on most painful area for up to 12 hrs montelukast 10 mg tablet 10 mg PO BEDTIME clonazepam [Klonopin] 1 mg tablet 1 mg PO DAILY Rx Instructions: administer 30 minutes before bedtime (DME) Knee Support Brace Misc See Rx Instructions .ROUTE .MEDSUPPLY Qty: 2 0RF Rx Instructions: As directed zolpidem 10 mg tablet 10 mg PO BEDTIME PRN (Reason: Insomnia) risperidone 0.5 mg tablet 0.5 mg PO BID calcium carbonate-vitamin D3 600 mg(1,500mg) -400 unit tablet 1 tab PO BID potassium chloride 20 mEq tablet,ER particles/crystals 20 meq PO BID acetaminophen 325 mg tablet 325 mg PO PRN (Reason: pain) fluoride (sodium) [SF 5000 Plus] 1.1 % cream PO buspirone 7.5 mg tablet 7.5 mg PO BID tramadol 50 mg tablet 50 mg PO BID PRN diclofenac sodium 1 % gel topical Ozempic 1 mg/dose (4 mg/3 mL) pen injector 1 mg subcut QWEEK Qty: 3 4RF dextrose [Glutose-15] 40 % gel 15 g PO DIRECTED Qty: 112.5 5RF Trulance 3 mg tablet 3 mg PO DAILY Qty: 30 6RF omeprazole 20 mg capsule,delayed release(DR/EC) 20 mg PO BID@0630,1630 Qty: 60 6RF sennosides [senna] 8.6 mg tablet 17.2 mg PO BEDTIME Qty: 60 6RF metoclopramide HCl 10 mg tablet 10 mg PO TID Qty: 90 6RF docusate sodium 100 mg capsule 100 mg PO BID 30 Days Qty: 60 6RF Referrals: Ron Preciado MD [Physician] - Sariah Vickers NP [Primary Care Provider] - Print Language: Portuguese
[2023-06-02 15:44] LABS: MANUAL DIFF FLAG NO
[2023-06-02 15:45] LABS: Basophils Percent Auto 0.2 % (0-2); Eosinophils Percent Auto 0.2 % (0-4); Hematocrit 40.8 % (37.0-47.0); Hemoglobin 13.9 g/dl (12.0-16.0); Imm Gran Abs Auto 0.01 X10*3/uL (0.00-0.03); Imm Gran Pct Auto 0.2 % (0.0-0.4); Lymphocytes Absolute Auto 0.8 X10*3/uL (1.2-4.9); Lymphocytes Percent Auto 12.6 % (20-40); Mean Corpuscular HGB Conc 34.1 g/dl (31.0-35.0); Mean Platelet Volume 9.5 fL (9.4-12.3); Monocytes Absolute Auto 0.1 X10*3/uL (0.1-1.2); Neutrophils Absolute Auto 5.1 x10*3/uL (2.0-8.3); Neutrophils Percent Auto 84.8 % (45-73); Platelet Count 275 X10*3/uL (160-400); Red Blood Count 4.34 X10*6/uL (4.20-5.50); Red Cell Distribution Width 13.6 % (11.0-16.0)
[2023-06-02 15:52] LABS: Prothrombin Time 11.7 SEC (11.1-13.3)
[2023-06-02 16:03] LABS: Alanine Aminotransferase 43 U/L (0-31); Albumin Level 4.2 g/dL (3.5-5.0); Alkaline Phosphatase 102 U/L (39-117); Anion Gap 13 (12-20); Aspartate Amino Transferase 29 U/L (5-31); Bilirubin Total 0.3 mg/dL (0.0-1.0); Blood Urea Nitrogen 15 mg/dL (9-16); Calcium 9.5 mg/dL (8.4-10.2); Carbon Dioxide 23 mmol/L (22-29); Chloride 111 mmol/L (96-108); Creatinine Clr Calc Pharmacy 67.7; Estimated Glomerular Filt Rate > 60; Glucose Random 203 mg/dL (60-115); Potassium 4.1 mmol/L (3.3-5.1); Sodium 143 mmol/L (135-145); Total Protein 7.4 g/dL (6.5-8.0)
[2023-06-02 16:17] LABS: Troponin-I High Sensitivity < 2.7 ng/L (<3.5-17.0)
[2023-06-02 16:25] LABS: Influenza A PCR NEGATIVE (Negative); Influenza B PCR NEGATIVE (Negative); Resp Syncy Virus RNA Qual PCR NEGATIVE (Negative); SARS COV2 PCR INHOUSE NEGATIVE (Negative)
[2023-06-02 16:51] VITALS: BP 130/86; PULSE 93; RESP 20; TEMP 36.9; O2SAT 94
[2023-06-02] MEDS: Doxycycline Monohydrate 100 MG CAPSULE PO (17:35)
[2023-06-02 17:38] VITALS: BP 118/78; PULSE 90; RESP 20; TEMP 36.9; O2SAT 95
[2023-06-02 17:39] VITALS: BP 118/78; PULSE 90; RESP 20; TEMP 36.9; O2SAT 95
== END 2023-06-02 17:46 | disposition home or self-care (01) ==
PROVIDERS: Physician Assistant; Emergency Provider Emergency Medicine; PCP Nurse Practitioner Primary Care
DX: J44.1 Chronic obstructive pulmonary disease with (acute) exacerbation (principal); J45.50 Severe persistent asthma, uncomplicated; I10 Essential (primary) hypertension; E11.9 Type 2 diabetes mellitus without complications; Z86.718 Personal history of other venous thrombosis and embolism; Z88.6 Allergy status to analgesic agent; Z88.8 Allergy status to other drugs, medicaments and biological substances
CPT/HCPCS: 0241U; 71046; 80053; 84484; 85025; 85610; 93005; 99283; 99284

== ENCOUNTER → 2023-06-02 13:08 | Outpatient (BNV) | payer OTHER, SELFPAY | PROVIDERS: Emergency Provider Emergency Medicine; PCP Nurse Practitioner Primary Care; Visit Provider Internal Medicine | DX: R00.0 Tachycardia, unspecified (principal); I44.4 Left anterior fascicular block | CPT/HCPCS: 93010 ==

== ENCOUNTER 2023-06-04 12:47 | Outpatient (REF) | payer OTHER, SELFPAY ==
--- NOTE | ~2023-06-04 | US_ITS ---
EXAMINATION: US RETROPERITONEAL LIMITED (RENAL ONLY) CLINICAL INFORMATION: Calculus of kidney. COMPARISON: Ultrasound abdomen complete 05/15/2023 and 09/26/2022. CT abdomen and pelvis 02/01/2022. X-ray abdomen KUB 05/15/2017 and 04/21/2017. TECHNIQUE: Real-time imaging of the kidneys. Technically limited study secondary to body habitus. Limited visualization due to bowel gas. FINDINGS: RIGHT KIDNEY: 10.4 x 3.9 x 5.0 cm (SAG x AP x TRV). No hydronephrosis. No renal calculi. There appears to be a focal cortical defect at the interpolar region of the right kidney, which is difficult to evaluate as visualization is limited due to bowel gas. LEFT KIDNEY: 11.9 x 4.4 x 3.7 cm (SAG x AP x TRV). No hydronephrosis. No renal calculi. Renal cortical thickness is normal. Limited visualization. US/US renal BI IMPRESSION: There appears to be a focal cortical defect at the interpolar region of the right kidney, which is difficult to evaluate as visualization is limited due to bowel gas. CT scan with intravenous contrast recommended for further evaluation.
== END 2023-06-04 12:48 | disposition home or self-care (01) ==
LOC: HO.US 12:47
PROVIDERS: PCP Nurse Practitioner Primary Care; Visit Provider Urology
DX: N20.0 Calculus of kidney (principal)
CPT/HCPCS: 76775

== ENCOUNTER 2023-06-12 10:19 | Outpatient (AMB) | payer OTHER, SELFPAY ==
[2023-06-12 10:25] VITALS: BP 126/78; BMI 35.6
--- NOTE | 2023-06-12 10:25 | MHC.OFFVIS ---
Vital Signs 06/12/23 10:25 Height 5 ft 3 in Weight 201 lb BMI 35.6 BP 126/78 Intake Visit Reasons: Vaginal odor/30 minutes Micro Computer Data Processor Required: Yes Micro Computer Data Processor Language: Tile Finisher Name: Virginie Augustine LIZET Information Interpreted: non-clinical & clinical Futures Trader: Futures Trader Present (Virginie Augustine LIZET) Allergies aspirin [Aspirin] Allergy (Mild, Verified 06/12/23 10:26) ITCHY THROAT azithromycin Allergy (Unknown, Verified 06/12/23 10:26) Unknown naproxen Allergy (Unknown, Verified 06/12/23 10:26) Unknown simvastatin Allergy (Unknown, Verified 06/12/23 10:26) Unknown Fish Containing Products Allergy (Verified 06/12/23 10:26) Swelling onion [ONION] Adverse Reaction (Mild, Verified 06/12/23 10:26) RED FACE Is last menstrual period known: No Post menopausal: Yes HPI Comments Details: Patient is here today with concerns that she may have scratched herself while shaving she has seen a little pink discharge and has some external itching. History of a hysterectomy due to heavy menstrual bleeding. COUNTS INCLUDE 234 BEDS AT THE [facility] Medical History Preop pulmonary/respiratory exam Well woman exam with routine gynecological exam Renal calculi UTI (urinary tract infection) Allergic rhinitis Anxiety and depression Fibromyalgia HTN (hypertension) PTSD (post-traumatic stress disorder) Vertigo Diabetes Chest pain Spondylosis of cervical region without myelopathy or radiculopathy Bronchitis COPD exacerbation Low vitamin D level Non-toxic multinodular goiter Hypothyroidism DVT (deep venous thrombosis) Cocaine abuse Surgical History History of esophagogastroduodenoscopy (EGD) H/O colonoscopy with polypectomy History of selective injection of anesthetic agent around lumbar nerve root Hx of right breast biopsy History of hysterectomy History of lithotripsy Family History Father No problems noted. 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 Female Reproductive History Menstrual Age of Menarche: 10 control method: permanent sterilization Date of last pap smear: 05/10/20 (negative) Review of Systems Const All systems reviewed & are unremarkable except as noted in HPI and below Physical Exam Vital Signs: Last Vital Signs BP 126/78 06/12/23 10:25 BMI result Body Mass Index 35.6 Const General: cooperative, healthy appearing and no acute distress Orientation/consciousness: patient oriented x3 GI Inspection: Yes normal to inspection Palpation (GI): Soft to palpation and Other GI palpation findings present (Nontender) Rectal Exam - Female: visual inspection normal Other: Labial erythema, left lower labia has a 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 No erosions or thickening. General: Yes bladder normal to palpation External Female Exam: normal appearance of the urethra Speculum Exam - Vagina: normal appearance of the vagina, normal palpation, normal vaginal discharge and vagina atrophic (Moderate to severe atrophy with yellow green discharge) Speculum Exam - Cervix: Cervix absent (Vaginal cuff no lesions or nodules) Bimanual exam- vagina & uterus: normal bimanual exam, normal palpation, bladder normal to palpation and uterus absent Bimanual Exam- Adnexa, other: normal adnexae Neuro General: patient oriented x3 Assessment & Plan Assessment & Plan (1) Vulvar itching: Code(s): L29.2 - Pruritus vulvae Plan Plan to treat for yeast externally for 1 week, return to the office for skin recheck. If any area requires biopsying a skin biopsy will be discussed and offered at that next visit. Advised not to shave due to risk of irritating and cutting the skin again. All of her questions and concerns were addressed to the best of my ability. She is agreeable to the plan of care. This note is constructed using voice recognition software. While every effort has been made to ensure accuracy, barrel lathe operator inside errors may have been included. Medications: Refilled clotrimazole-betamethasone 1-0.05 % apply externally a thin coat to the area 1 appl topical BID 45 grams 0RF itching 7 days Coding Level of Care Code Est Pt Level 3 (74881) Diagnoses Vulvar itching L29.2
== END 2023-06-12 10:55 | disposition home or self-care (01) ==
LOC: HO.HWSW 10:19
PROVIDERS: PCP Nurse Practitioner Primary Care; Visit Provider Advanced Practice Midwife
DX: L29.2 Pruritus vulvae (principal)
CPT/HCPCS: 99213

== ENCOUNTER 2023-06-12 10:19 | Outpatient (REF) | payer OTHER, SELFPAY ==
[2023-06-13 12:49] LABS: BV Int Neg Control Negative (Negative); BV Int Pos Control Positive (Positive)
== END 2023-06-12 10:20 | disposition home or self-care (01) ==
LOC: HO.LNP 10:19
PROVIDERS: PCP Nurse Practitioner Primary Care; Visit Provider Advanced Practice Midwife
DX: N89.8 Other specified noninflammatory disorders of vagina (principal); L29.2 Pruritus vulvae
CPT/HCPCS: 87480; 87510; 87660; 99212

== ENCOUNTER 2023-06-18 10:48 | Outpatient (AMB) | payer OTHER, SELFPAY ==
[2023-06-18 10:53] VITALS: BP 122/84; PULSE 92; O2SAT 94; BMI 35.7
--- NOTE | 2023-06-18 10:53 | MHC.OFFVIS ---
Vital Signs 06/18/23 10:53 Height 5 ft 3 in Weight 201 lb 11.567 oz BMI 35.7 BP 122/84 Blood Pressure Location Rt brachial Position Sitting Pulse 92 Pulse Source Doppler Pulse Oximetry (%) 94 Oxygen Delivery Method Room Air Intake Visit Reasons: Asthma Soil Science Teacher Required: Yes Soil Science Teacher Name: Samantha Ledesma C.L.M Allergies aspirin [Aspirin] Allergy (Mild, Verified 06/18/23 10:59) ITCHY THROAT azithromycin Allergy (Unknown, Verified 06/18/23 10:59) Unknown naproxen Allergy (Unknown, Verified 06/18/23 10:59) Unknown simvastatin Allergy (Unknown, Verified 06/18/23 10:59) Unknown Fish Containing Products Allergy (Verified 06/18/23 10:59) Swelling onion [ONION] Adverse Reaction (Mild, Verified 06/18/23 10:59) RED FACE HPI HPI Asthma: Details: 62-year-old lady, former 30+ pack-year smoker, quit 2014 followed for severe persistent allergic asthma/COPD overlap syndrome and environmental allergies. She continues on Wixela, Spiriva, albuterol MDI, and Xolair with good symptomatic control. Today she complains of an acute exacerbation symptomatic with cough productive yellowish sputum, but no wheezing. [facility] Medical History Preop pulmonary/respiratory exam Well woman exam with routine gynecological exam Renal calculi UTI (urinary tract infection) Allergic rhinitis Anxiety and depression Fibromyalgia HTN (hypertension) PTSD (post-traumatic stress disorder) Vertigo Diabetes Chest pain Spondylosis of cervical region without myelopathy or radiculopathy Bronchitis COPD exacerbation Low vitamin D level Non-toxic multinodular goiter Hypothyroidism DVT (deep venous thrombosis) Cocaine abuse Surgical History History of esophagogastroduodenoscopy (EGD) H/O colonoscopy with polypectomy History of selective injection of anesthetic agent around lumbar nerve root Hx of right breast biopsy History of hysterectomy History of lithotripsy Family History Father No problems noted. 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 Female Reproductive History Menstrual Age of Menarche: 10 Review of Systems Const Denies daytime sleepiness, Denies excessive sweating, Denies fatigue, Denies fever(s), Denies lethargy, Denies malaise, Denies night sweats, Denies snoring and Denies weight loss Eyes Denies blurry vision and Denies itchy eyes ENT Denies nasal congestion, Denies post nasal drip, Denies sinus pain, Denies sinus pressure and Denies other ( Thrush) Card Denies chest pain, Denies pedal edema, Denies dyspnea, Denies orthopnea and Denies paroxysmal nocturnal dyspnea Resp Reports cough, Denies hemoptysis, Reports excessive phlegm production, Denies dyspnea, Denies snoring and Denies wheezing GI Denies abdominal pain and Denies heartburn Musc Denies myalgias, Denies arthralgias and Denies joint swelling Skin/Breast Denies rash Neuro Denies memory loss and Denies seizure-like activity Psych Denies abnormal sleep pattern, Denies anxiety and Denies memory loss Endo Denies excessive sweating, Denies fatigue and Denies heat intolerance Bruno/Lymph Denies easy bruising Aller/Immun Denies itchy eyes, Denies seasonal rhinorrhea and Denies wheezing Physical Exam Vital Signs: Last Vital Signs Pulse 92 06/18/23 10:53 BP 122/84 06/18/23 10:53 Pulse Ox 94 06/18/23 10:53 Oxygen Delivery Method Room Air 06/18/23 10:53 BMI result Body Mass Index 35.7 Const General: no acute distress and alert Nutritional Appearance: not obese Orientation/consciousness: Other orientation findings ( oriented) HEENT Head: Yes atraumatic Eyes General: appearance normal, both eyes and all related structures Sclerae: sclerae normal EOM: EOMs intact bilaterally Neck Neck: Yes supple Lymphatic: no lymphadenopathy noted Resp Effort & Inspection: normal respiratory effort and no use of accessory muscles Auscultation: rales (Bibasilar) Cardio Rate: regular rate Rhythm: regular rhythm Heart sounds: no gallops, no murmurs and no rubs Skin General skin exam: other ( warm) Extrem General: No clubbing, No cyanosis and No edema Assessment & Plan Assessment & Plan (1) Asthma-COPD overlap syndrome: Code(s): J44.89 - Other specified chronic obstructive pulmonary disease Category: Medical Plan: Baseline well controlled on Xolair, Spiriva, Advair, Combivent, and albuterol MDI. Continue current regimen. Now with bronchitic exacerbation, will treat with a course of Augmentin. (2) Environmental allergies: Code(s): Z91.09 - Other allergy status, other than to drugs and biological substances Category: Medical Plan: Well controlled on Xolair. Continue current regimen. Medications: New amoxicillin-pot clavulanate 875-125 mg 1 tab PO BID 20 tabs 0RF Discontinued doxycycline hyclate Discontinued Reason: Doctor's Order 100 mg PO BID 13 caps 0RF levofloxacin Discontinued Reason: Doctor's Order 750 mg PO DAILY 7 tabs 0RF Coding Level of Care Code Est Pt Level 4 (71663) Diagnoses Asthma-COPD overlap syndrome J44.89 Environmental allergies Z91.09
== END 2023-06-18 11:10 | disposition home or self-care (01) ==
PROVIDERS: PCP Nurse Practitioner Primary Care; Visit Provider Internal Medicine Pulmonary Disease
DX: J44.89 Other specified chronic obstructive pulmonary disease (principal); Z91.09 Other allergy status, other than to drugs and biological substances
CPT/HCPCS: 99214

== ENCOUNTER → 2023-06-18 10:48 | Outpatient (BNVA) | payer OTHER, SELFPAY | PROVIDERS: PCP Nurse Practitioner Primary Care; Visit Provider Internal Medicine Pulmonary Disease | DX: J44.89 Other specified chronic obstructive pulmonary disease (principal); Z91.09 Other allergy status, other than to drugs and biological substances | CPT/HCPCS: 99212 ==

== ENCOUNTER 2023-06-20 08:22 | Emergency (ER) | payer OTHER, SELFPAY ==
--- NOTE | ~2023-06-20 | XR_ITS ---
EXAMINATION: XR LUMBOSACRAL SPINE CLINICAL INFORMATION: Lower back pain, no trauma. COMPARISON: CT abdomen/pelvis 12/25/2018. TECHNIQUE: Three views of the lumbosacral spine. FINDINGS: No evidence of acute compression deformity or subluxation. Mild to moderate intervertebral disc height loss from L3 through S1. Moderate facet arthropathy from L4 through S1 leading to certain degree of neural foraminal encroachment at L5-S1. Symmetric SI joints. No significant paraspinal soft tissue abnormality. XR/XR lumbar spine 2-3V IMPRESSION: 1. No acute compression deformity or subluxation. 2. Mild to moderate lower lumbar spondylosis leading to neural foraminal osseous encroachment at L5-S1.
[2023-06-20 08:38] VITALS: BP 136/93; PULSE 85; RESP 20; TEMP 36.8; O2SAT 97; BMI 30.8
[2023-06-20 11:09] VITALS: RESP 20
[2023-06-20] MEDS: Morphine Sulfate 2 MG/ML CARTRIDGE IM (11:09)
[2023-06-20] MEDS: predniSONE 20 MG TABLET 60 MG PO (11:09)
--- NOTE | 2023-06-20 11:13 | ED.GENADULT ---
HPI - General Adult General Chief complaint: Back Pain/Injury Stated complaint: lower back pain Time Seen by Provider: 06/20/23 09:21 Source: patient Mode of arrival: ambulatory Limitations: no limitations History of Present Illness HPI narrative: 62-year-old female history of osteoarthritis, kidney stone, COVID-19 the past, bursitis of the hip, asthma COPD overlap syndrome, presents to ED for low back pain exacerbation is worse on movement. Patient states last week she lifted something heavy and they are awkward movement ever since has had back pain not improved with tramadol. Patient denies any urinary/bowel incontinence. Patient denies any IV drug use. Patient states no fever or chills. Patient states no dysuria or hematuria. Patient denies any abdominal pain Related Data Home Medications ?Medication ?Instructions ?Recorded ?Confirmed calcium carbonate 600 mg-vitamin 1 tab PO BID 11/20/19 02/18/23 D3 10 mcg (400 unit) tablet potassium chloride 20 mEq 20 meq PO BID 11/20/19 02/18/23 tablet,extended release(part/cryst) risperidone 0.5 mg tablet 0.5 mg PO BID 11/20/19 02/18/23 zolpidem 10 mg tablet 10 mg PO BEDTIME PRN Insomnia 11/20/19 02/18/23 clonazepam 1 mg tablet (Klonopin) 1 mg PO DAILY 03/08/20 02/18/23 montelukast 10 mg tablet 10 mg PO BEDTIME 03/08/20 02/18/23 multivitamin-ferrous 1 tab PO DAILY 07/06/21 02/18/23 fumarate-folic acid 18 mg-400 mcg tablet (Certavite-Antioxidant) fluoride (sodium) 1.1 % dental appl PO 10/16/21 02/18/23 cream (SF 5000 Plus) buspirone 7.5 mg tablet 7.5 mg PO BID 01/31/22 02/18/23 tramadol 50 mg tablet 50 mg PO BID PRN 01/31/22 02/18/23 diclofenac sodium 1 % topical gel g topical 05/07/22 02/18/23 acetaminophen 325 mg tablet 325 mg PO PRN pain 06/11/22 02/18/23 Previous Rx's ?Medication ?Instructions ?Recorded leg brace (Knee Support Brace) #2 ea 03/08/20 blood-glucose meter (FreeStyle #1 ea 02/28/22 Flash System kit) semaglutide 1 mg/dose (4 mg/3 mL) 1 mg (0.75 mL) subcut QWEEK #3 mL 09/04/22 subcutaneous pen injector (Ozempic) pen needle, diabetic 32 gauge x ##100 10/01/22 5/32 (UltiCare Pen Needle) fluticasone 250 mcg-salmeterol 50 1 ea inhalation BID 30 days #60 ea 10/02/22 mcg/dose blistr powdr for inhalation lidocaine 5 % topical patch 1 patch topical DAILY #15 ea 10/20/22 flash glucose sensor (FreeStyle #2 ea 11/28/22 Jalil 2 Sensor kit) miconazole nitrate 4 % (200 mg)-2 1 appful vaginal BEDTIME 3 days 12/25/22 % (9 gram)vaginal,prefill #24 grams appl,cream (Monistat 3) gabapentin 400 mg capsule 400 mg PO BEDTIME #30 caps 01/01/23 dextrose 40 % oral gel (Glutose-15) 15 g PO DIRECTED for 02/04/23 hypoglycemia #112.5 grams hydrocortisone 2.5 % topical cream 1 appl NC BID hemorrhoids #30 grams 02/04/23 with perineal applicator (Proctosol HC) albuterol sulfate 90 mcg/actuation 2 puff inhalation Q4-6H PRN for 02/11/23 aerosol inhaler (Ventolin HFA) wheezing #18 grams pyridoxine (vitamin B6) 100 mg 100 mg PO DAILY #90 tabs 03/04/23 tablet Lactobacil rhamnosus GG 10 billion 1 cap PO DAILY #30 caps 03/27/23 cell-inulin 200 mg sprinkle capsule ([facility]) levothyroxine 75 mcg tablet 75 mcg PO QAM #90 tabs 04/14/23 docusate sodium 100 mg capsule 100 mg PO BID 30 days #60 caps 04/25/23 metoclopramide HCl 10 mg tablet 10 mg PO TID #90 tabs 04/25/23 omeprazole 20 mg capsule,delayed 20 mg PO BID@0630,1630 #60 caps 04/25/23 release plecanatide 3 mg tablet (Trulance) 3 mg PO DAILY #30 tabs 04/25/23 sennosides 8.6 mg tablet (senna) 17.2 mg (2 x 8.6 mg) PO BEDTIME 04/25/23 constipation #60 tabs flash glucose scanning reader #1 ea 05/07/23 (FreeStyle Jalil 2 [place]) blood sugar diagnostic (FreeStyle #100 strips 05/14/23 Lite Strips) lancets 33 gauge (TRUEplus Lancets) #100 ea 05/14/23 omalizumab 150 mg subcutaneous 300 mg subcut Q2W 28 days #4 ea 05/19/23 solution prednisone 20 mg tablet 40 mg (2 x 20 mg) PO DAILY #10 tabs 05/28/23 clotrimazole-betamethasone 1 1 appl topical BID itching 7 days 06/12/23 %-0.05 % topical cream #45 grams ipratropium 20 mcg-albuterol 100 1 puff PO QID #4 grams 06/16/23 mcg/actuation mist for inhalation (Combivent Respimat) tiotropium bromide 18 mcg capsule 1 cap inhalation DAILY #30 caps 06/16/23 with inhalation device (Spiriva with HandiHaler) amoxicillin 875 mg-potassium 1 tab PO BID #20 tabs 06/18/23 clavulanate 125 mg tablet cyclobenzaprine 10 mg tablet 10 mg PO TID PRN muscle spasm 7 06/20/23 days #21 tabs prednisone 20 mg tablet 40 mg (2 x 20 mg) PO DAILY 5 days 06/20/23 #10 tabs Allergies Allergy/AdvReac Type Severity Reaction Status Date / Time aspirin [Aspirin] Allergy Mild ITCHY Verified 06/20/23 08:40 THROAT azithromycin Allergy Unknown Unknown Verified 06/20/23 08:40 naproxen Allergy Unknown Unknown Verified 06/20/23 08:40 simvastatin Allergy Unknown Unknown Verified 06/20/23 08:40 Fish Containing Products Allergy Swelling Verified 06/20/23 08:40 onion [ONION] AdvReac Mild RED FACE Verified 06/20/23 08:40 Review of Systems Review of Systems: low back pain that is worse on movement Yes all other systems are reviewed and are negative [facility] Past Medical History Medical History Preop pulmonary/respiratory exam Well woman exam with routine gynecological exam Renal calculi UTI (urinary tract infection) Allergic rhinitis Anxiety and depression Fibromyalgia HTN (hypertension) PTSD (post-traumatic stress disorder) Vertigo Diabetes Chest pain Spondylosis of cervical region without myelopathy or radiculopathy Bronchitis COPD exacerbation Low vitamin D level Non-toxic multinodular goiter Hypothyroidism DVT (deep venous thrombosis) Cocaine abuse Surgical History History of esophagogastroduodenoscopy (EGD) H/O colonoscopy with polypectomy History of selective injection of anesthetic agent around lumbar nerve root Hx of right breast biopsy History of hysterectomy History of lithotripsy Family History Family History Father No problems noted. 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 Physical Exam ED Vital Signs: Vital Signs - 24 hr 06/20/23 08:38 06/20/23 11:09 Temperature 98.2 F Pulse Rate 85 Respiratory Rate 20 20 Blood Pressure 136/93 H Pulse Oximetry 97 Oxygen Delivery Method Room Air BMI result Body Mass Index 30.8 Const Orientation/consciousness: oriented to person, oriented to place, oriented to time and patient oriented x3 HENMT Head: Yes normal to inspection, Yes No palpable skull fracture present, Yes normocephalic, Yes atraumatic and No abrasion Eyes General: appearance normal, both eyes and all related structures Neck Neck: Yes normal visual inspection, Yes full ROM, Yes no lymphadenopathy, Yes no meningeal signs, Yes trachea midline, Yes supple, No anterior neck swelling and No tender Chest Chest palpation & inspection: normal inspection of the chest and normal palpation of entire chest wall Resp Effort & Inspection: normal respiratory effort and able to speak in complete sentences Auscultation: clear to auscultation bilaterally Cardio Jugular venous distension: no JVD Heart sounds: S1 normal heart sound present and S2 normal heart sound present GI Inspection: Yes normal to inspection Palpation (GI): Soft to palpation, not firm, nontender, no guarding and not rigid General: Yes no CVA tenderness Back/Spine/Pelvis Back: no CVA tenderness and back tenderness (lumbar spine tenderness) Skin General skin exam: no rashes or lesions noted, elasticity normal and turgor normal Neuro General: oriented to person, oriented to place, oriented to time, patient oriented x3, gait normal, tone normal, moves all extremities, Normal light touch and pain sensation, no meningeal signs, no focal motor deficits, CN's II-XI intact bilaterally and normal sensation to monofilament Extrem General: Yes normal to inspection and Yes full ROM Psych Appearance: grossly normal, well kempt and not disheveled Medications Administered Discontinued Medications Generic Name Dose Route Start Last Admin Trade Name Freq PRN Reason Stop Dose Admin Morphine Sulfate 2 mg 06/20/23 11:06/20/23 11:09 Morphine Sulfate 2 Mg/Ml Cartridge IM 06/20/23 11:06 2 mg ONCE ONE Administration Protocol Prednisone 60 mg 06/20/23 11:06/20/23 11:09 Prednisone 20 Mg Tablet PO 06/20/23 11:06 60 mg ONCE ONE Administration Medical Decision Making Medical Decision Making [facility] Narrative: 62-year-old female presents to ED for low back pain that is worse on movement after heavily lifting and awkward movement. x-ray shows severe lumbar spondylosis with neural foraminal encroachment. We will send UA shows no infection. Presently not suspecting cauda equinus syndrome or epidural abscess. 12:15pm: Urine negative for signs of infection or blood. Lumbar spine x-ray shows severe osteoarthritis with possible neuro encroachment. Patient informed of this. Presently not suspecting any epidural abscess, cauda equinus, kidney stones, pyelonephritis, or kidney arterial occlusion. Patient informed to follow up with primary care provider. Patient already has tramadol at home. Patient explained worrisome signs and informed to return to the ED for has some Differential Diagnosis Differential Diagnoses: The differential diagnosis associated with the presentation includes ( lumbar radiculopathy, spinal fracture, UTI, pyelonephritis, kidney stone) Admission/Observation Consideration of admission/observation: Escalation of care including admission/observation considered Lab Data [facility] Lab Attestation statement: I reviewed the patient's lab results. Labs: Lab Results 06/20/23 Range/Units 11:13 Urine Color Yellow Urine Appearance Clear Urine pH 6.5 (5.0-9.0) Ur Specific [place] 1.020 (1.005-1.025) Urine Protein Negative (Neg-Trace) mg/dL Urine Glucose (UA) Negative (Negative) mg/dL Urine Ketones Negative (Negative) mg/dL Urine Blood Negative (Negative) Urine Nitrite Negative (Negative) Ur Leukocyte Esterase Trace H (Negative) Urine RBC 0-2 (0-2) /HPF Urine WBC 0-5 (0-5) /HPF Ur Squamous Epith Cells 0-2 (0-2) /HPF Urine Bacteria None Seen (None Seen) Hyaline Casts 0-2 (0-2) /LPF Independent Interpretation I performed an independent interpretation of an: Plain X-Ray Radiology Impression Discussion of test interpretation with radiology: I have reviewed the radiologist's reading. Independent Historian Clinical information obtained from an independent historian. History obtained from or confirmed by: Other ( patient) External Record Review External record reviewed: Other ( prior visits) Prescription Management I considered prescription management with: Pain Medication Discharge Plan Discharge Clinical Impression: Acute lumbar radiculopathy Patient Disposition: Home, Self-Care Instructions: Lumbar Radiculopathy (ED) Additional Instructions: x-ray shows severe arthritis of the spine. You need to follow-up with your primary care provider. You may need MRI to check for nerve impingement. Return to the ED immediately for any urinary / bowel incontinence, abdominal pain, nausea, vomiting, fever, chills, flank pain, paralysis of lower extremities, weakness, inability to walk, abdominal pain, dysuria, hematuria, or any other concerning symptoms. Continue taking your tramadol you have at home. XR/XR lumbar spine 2-3V IMPRESSION: 1. No acute compression deformity or subluxation. 2. Mild to moderate lower lumbar spondylosis leading to neural foraminal osseous encroachment at L5-S1. Prescriptions: New prednisone 20 mg tablet 40 mg PO DAILY 5 Days Qty: 10 0RF cyclobenzaprine 10 mg tablet 10 mg PO TID PRN (Reason: muscle spasm) 7 Days Qty: 21 0RF Rx Instructions: Side effects of drowsiness. Do not take at the same time with tramadol. Do not take while driving or going to work. No Action (DME) blood-glucose meter [PettaStyle Flash System] Kit See Rx Instructions .Route Qty: 1 0RF Rx Instructions: As directed (DME) pen needle, diabetic [UltiCare Pen Needle] 32 gauge x 5/32 needle See Rx Instructions .ROUTE .COMPLEX Qty: 100 5RF Dose Instruction: USE FOUR TIMES DAILY Rx Instructions: USE FOUR TIMES DAILY fluticasone propion-salmeterol 250-50 mcg/dose blister with device 1 ea inhalation BID 30 Days Qty: 60 6RF (DME) FreeStyle Jalil 2 Sensor Kit See Rx Instructions .Route Qty: 2 4RF Rx Instructions: As directed change every 14 days miconazole nitrate [Monistat 3] 4 % (200 mg)- 2 % (9 gram) comb pack,prefill appl, cream 1 appful vaginal BEDTIME 3 Days Qty: 24 0RF gabapentin 400 mg capsule 400 mg PO BEDTIME Qty: 30 4RF hydrocortisone [Proctosol HC] 2.5 % cream with perineal applicator 1 appl NC BID Qty: 30 6RF Rx Instructions: BE SURE TO INCLUDE RECTAL APPICATOR!! albuterol sulfate [Ventolin HFA] 90 mcg/actuation HFA aerosol inhaler 2 puff inhalation Q4-6H PRN (Reason: for wheezing) Qty: 18 6RF pyridoxine (vitamin B6) 100 mg tablet 100 mg PO DAILY Qty: 90 3RF [facility] 10 billion cell -200 mg capsule, sprinkle 1 cap PO DAILY Qty: 30 6RF levothyroxine 75 mcg tablet 75 mcg PO QAM Qty: 90 4RF (DME) FreeStyle Jalil 2 [place] Misc See Rx Instructions .Route Qty: 1 0RF Rx Instructions: As directed (DME) lancets [TRUEplus Lancets] 33 gauge misc See Rx Instructions .ROUTE .COMPLEX Qty: 100 5RF Dose Instruction: USE TEST BLOOD SUGAR FOUR TIMES DAILY Rx Instructions: USE TEST BLOOD SUGAR FOUR TIMES DAILY (DME) FreeStyle Lite Strips Strip See Rx Instructions .ROUTE .COMPLEX Qty: 100 5RF Dose Instruction: USE TEST BLOOD SUGAR FOUR TIMES DAILY Rx Instructions: USE TEST BLOOD SUGAR FOUR TIMES DAILY omalizumab 150 mg recon soln 300 mg subcut Q2W 28 Days Qty: 4 11RF Rx Instructions: requires multiple injection sites; do not exceed 150 mg per injection site prednisone 20 mg tablet 40 mg PO DAILY Qty: 10 0RF Spiriva with HandiHaler 18 mcg capsule, w/inhalation device 1 cap inhalation DAILY Qty: 30 0RF Combivent Respimat 20-100 mcg/actuation mist 1 puff PO QID Qty: 4 0RF Certavite-Antioxidant 18-400 mg-mcg Tablet 1 tab PO DAILY lidocaine 5 % adhesive patch,medicated 1 patch topical DAILY Qty: 15 0RF Rx Instructions: leave on most painful area for up to 12 hrs montelukast 10 mg tablet 10 mg PO BEDTIME clonazepam [Klonopin] 1 mg tablet 1 mg PO DAILY Rx Instructions: administer 30 minutes before bedtime (DME) Knee Support Brace Misc See Rx Instructions .ROUTE .MEDSUPPLY Qty: 2 0RF Rx Instructions: As directed zolpidem 10 mg tablet 10 mg PO BEDTIME PRN (Reason: Insomnia) risperidone 0.5 mg tablet 0.5 mg PO BID calcium carbonate-vitamin D3 600 mg(1,500mg) -400 unit tablet 1 tab PO BID potassium chloride 20 mEq tablet,ER particles/crystals 20 meq PO BID acetaminophen 325 mg tablet 325 mg PO PRN (Reason: pain) fluoride (sodium) [SF 5000 Plus] 1.1 % cream PO buspirone 7.5 mg tablet 7.5 mg PO BID tramadol 50 mg tablet 50 mg PO BID PRN diclofenac sodium 1 % gel topical Ozempic 1 mg/dose (4 mg/3 mL) pen injector 1 mg subcut QWEEK Qty: 3 4RF dextrose [Glutose-15] 40 % gel 15 g PO DIRECTED Qty: 112.5 5RF Trulance 3 mg tablet 3 mg PO DAILY Qty: 30 6RF omeprazole 20 mg capsule,delayed release(DR/EC) 20 mg PO BID@0630,1630 Qty: 60 6RF sennosides [senna] 8.6 mg tablet 17.2 mg PO BEDTIME Qty: 60 6RF metoclopramide HCl 10 mg tablet 10 mg PO TID Qty: 90 6RF docusate sodium 100 mg capsule 100 mg PO BID 30 Days Qty: 60 6RF clotrimazole-betamethasone 1-0.05 % cream 1 appl topical BID 7 Days Qty: 45 0RF Rx Instructions: apply externally a thin coat to the area amoxicillin-pot clavulanate 875-125 mg tablet 1 tab PO BID Qty: 20 0RF Stand Alone Forms: Work/School Release Interventions: ED Discharge Assessment Last Done: 06/20/23 12:44 Discharge Date/Time: 06/20/23 12:44 Print Language: Kinyarwanda
[2023-06-20 11:21] LABS: Appearance Urine Clear; Color Urine Yellow; Glucose Urine UA Negative (Negative); Leukocyte Esterase Urine Trace (Negative); Nitrite Urine Negative (Negative); PH 6.5 (5.0-9.0); UMIC TRIGGER UACC YES; Urine Blood Negative (Negative); Urine Ketones Negative (Negative); Urine Protein Negative (Neg-Trace)
[2023-06-20 11:23] LABS: Bacteria Urine None Seen (None Seen); Hyaline Casts Urine 0-2 /LPF (0-2); RBC Urine 0-2 /HPF (0-2); Squamous Epithelial Cell Urine 0-2 /HPF (0-2); WBC Urine 0-5 /HPF (0-5)
[2023-06-20 12:44] VITALS: BP 136/93; PULSE 85; RESP 18; TEMP 36.8; O2SAT 98
== END 2023-06-20 12:44 | disposition home or self-care (01) ==
PROVIDERS: Physician Assistant; Emergency Provider Emergency Medicine; PCP Nurse Practitioner Primary Care
DX: M54.16 Radiculopathy, lumbar region (principal); I10 Essential (primary) hypertension; E11.9 Type 2 diabetes mellitus without complications
CPT/HCPCS: 72100; 81001; 96372; 99283; 99284; J2270

== ENCOUNTER → 2023-06-25 10:48 | Outpatient (BNVA) | payer OTHER, SELFPAY | PROVIDERS: PCP Nurse Practitioner Primary Care; Visit Provider Advanced Practice Midwife ==

== ENCOUNTER 2023-06-26 10:48 | Outpatient (AMB) | payer OTHER, SELFPAY ==
--- NOTE | 2023-06-26 10:49 | A.OFFVIS_ITS ---
Intake Visit Reasons: Preop LT knee 07/02/23 NE Intake Note: Nuvia is a 62 year old female who presents today for a pre op appointment for her LT knee 07/02/23 NE. Allergies aspirin [Aspirin] Allergy (Mild, Verified 06/26/23 10:49) ITCHY THROAT azithromycin Allergy (Unknown, Verified 06/26/23 10:49) Unknown naproxen Allergy (Unknown, Verified 06/26/23 10:49) Unknown simvastatin Allergy (Unknown, Verified 06/26/23 10:49) Unknown Fish Containing Products Allergy (Verified 06/26/23 10:49) Swelling onion [ONION] Adverse Reaction (Mild, Verified 06/26/23 10:49) RED FACE HPI HPI Preop LT knee 07/02/23 NE: Details: 62-year-old right hand dominant female, who is [place] speaking, presents in the office today for her preoperative history and physical exam prior to a left knee arthroscopy to be performed on 07/02/[address] Shane Sanchez. Patient has an allergy history, as follows: -Aspirin; itchy throat -Azithromycin; unknown -Naproxen; unknown -Simvastatin; unknown -Fish containing products; edema -Onion; red face Patient is currently taking, as follows: -Acetaminophen 325 mg PO PRN -Albuterol sulfate 90 mcg/actuation inhalation Q4-6H PRN -Amoxicillin-pot clavulanate 875-125 mg PO BID -Buspirone 7.5 mg PO BID -Calcium carbonate-vitamin D3 600 mg ? 10 mcg 1 tab PO BID -Clonazepam 1 mg PO Daily -Clotrimazole-betamethasone 1-0.05% topical BID -Dextrose 10% 15 grams PO as directed -Diclofenac sodium 100 mg PO BID -Docusate sodium 100 mg PO BID -Gabapentin 400 mg PO Bedtime -Hydrocortisone 2.5% topical BID -Ipratropium-albuterol 20-100 mcg/actuation 1 puff PO QID -Lactobac. Rhamnosus GG-inulin 10 billiion cell ?200 mg 1 cap PO daily -Levothyroxine 75 mcg PO QAM -Lidocaine 5% topical patch daily -Metoclopramide HCI 10 mg PO TID -Miconazole nitrate 1 application bedtime -Montelukast 10 mg PO bedtime -Yaaxbqrpwobm-rmdp-pxpom acid 88-775-cx-mcg 1 tab PO daily -Omalizumab 300 mg subcut Q2W -Omeprazole 20 mg PO BID -Plecanatide 3 mg PO daily -Potassium chloride ER 20 mEq PO BID -Pyridoxine 100 mg PO daily -Risperidone 0.5 mg PO BID -Semaglutide 1 mg subcut QWeek -Sennosides 17.2 mg PO bedtime -Tiotropium bromide 1 cap inhalation daily -Tramadol 50 mg PO BID PRN -Zolpidem 10 mg PO Bedtime PRN Patient has a medical history, as follows: -Asthma-COPD overlap syndrome -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 -Renal Calcuil -Hypertension -High cholesterol -NIDDY -COPD -PTSD -Depression -Anxiety -Fibromyalgia -Cervical spondylosis -Allergic rhinitis -Nephrolithiasis -Nonalcoholic steatohepatitits -Chronic constipation -GERD -Ectatic aorta -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 - Hypothyroidism -History of DVT -History of cocaine abuse -Vertigo Patient has a surgical history, as follows: -Hx of esophagogastroduodenoscopy (EGD); 2016 -Hx of colonoscopy with polypectomy; 2016 w/TA , 2021= TA repeat in 5 years -Hx of selective injection of anesthetic agent around lumbar nerve root -Hx of right breast biopsy -Hx of hysterectomy due to bleeding -Hx of lithotripsy PFSH Medical History Preop pulmonary/respiratory exam Well woman exam with routine gynecological exam Renal calculi UTI (urinary tract infection) Allergic rhinitis Anxiety and depression Fibromyalgia HTN (hypertension) PTSD (post-traumatic stress disorder) Vertigo Diabetes Chest pain Spondylosis of cervical region without myelopathy or radiculopathy Bronchitis COPD exacerbation Low vitamin D level Non-toxic multinodular goiter Hypothyroidism DVT (deep venous thrombosis) Cocaine abuse Surgical History History of esophagogastroduodenoscopy (EGD) H/O colonoscopy with polypectomy History of selective injection of anesthetic agent around lumbar nerve root Hx of right breast biopsy History of hysterectomy History of lithotripsy Family History Father No problems noted. 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 Female Reproductive History Menstrual Age of Menarche: 10 Review of Systems Const All systems reviewed & are unremarkable except as noted in HPI and below Physical Exam Const General: cooperative, healthy appearing, comfortable, no acute distress, well developed, alert and awake Orientation/consciousness: patient oriented x3 HEENT Head: Yes normal to inspection, Yes normocephalic and Yes atraumatic Mouth: moist mucous membranes Eyes General: appearance normal, both eyes and all related structures EOM: EOMs intact bilaterally Neck Neck: Yes normal visual inspection and Yes no lymphadenopathy Chest Other: no audible wheezing. Resp Other: No audible wheezing Effort & Inspection: normal respiratory effort and able to speak in complete sentences Cardio Other: Radial pulse palpable with no rythmic abnormalities Rate: regular rate Peripheral pulses: Peripheral pulses 2+ throughout GI Inspection: Yes normal to inspection Palpation (GI): Soft to palpation Back/Spine/Pelvis Cervical Spine: normal cervical lordosis Skin General skin exam: no rashes or lesions noted Neuro General: patient oriented x3 Extrem Other: Full Range of motion left knee No effusion Tenderness palpation medial joint line Positive medial Elvia's Psych Appearance: grossly normal and well kempt Mental Status: mental status grossly normal Speech and movement: Normal speech and movement present Affect: normal affect Attitude: cooperative Assessment & Plan Assessment & Plan (1) Tear of medial meniscus of left knee: Code(s): S83.242A - Other tear of medial meniscus, current injury, left knee, initial encounter Category: Medical Qualifiers: Encounter type: initial encounter Meniscus tear of knee type: unspecified type Tear current or old: current Qualified Code(s): S83.242A - Other tear of medial meniscus, current injury, left knee, initial encounter Plan Ms. Avinash Ho is a 62-year-old right hand dominant female, who is [place] speaking, presents in the office today for her preoperative history and physical exam prior to a left knee arthroscopy to be performed on 07/02/[address] Shane Sanchez. Patient has an allergy history, as follows: -Aspirin; itchy throat -Azithromycin; unknown -Naproxen; unknown -Simvastatin; unknown -Fish containing products; edema -Onion; red face Patient is currently taking, as follows: -Acetaminophen 325 mg PO PRN -Albuterol sulfate 90 mcg/actuation inhalation Q4-6H PRN -Amoxicillin-pot clavulanate 875-125 mg PO BID -Buspirone 7.5 mg PO BID -Calcium carbonate-vitamin D3 600 mg ? 10 mcg 1 tab PO BID -Clonazepam 1 mg PO Daily -Clotrimazole-betamethasone 1-0.05% topical BID -Dextrose 10% 15 grams PO as directed -Diclofenac sodium 100 mg PO BID -Docusate sodium 100 mg PO BID -Gabapentin 400 mg PO Bedtime -Hydrocortisone 2.5% topical BID -Ipratropium-albuterol 20-100 mcg/actuation 1 puff PO QID -Lactobac. Rhamnosus GG-inulin 10 billiion cell ?200 mg 1 cap PO daily -Levothyroxine 75 mcg PO QAM -Lidocaine 5% topical patch daily -Metoclopramide HCI 10 mg PO TID -Miconazole nitrate 1 application bedtime -Montelukast 10 mg PO bedtime -Kfeuqknvsbkq-qbls-cuoci acid 97-277-ks-mcg 1 tab PO daily -Omalizumab 300 mg subcut Q2W -Omeprazole 20 mg PO BID -Plecanatide 3 mg PO daily -Potassium chloride ER 20 mEq PO BID -Pyridoxine 100 mg PO daily -Risperidone 0.5 mg PO BID -Semaglutide 1 mg subcut QWeek -Sennosides 17.2 mg PO bedtime -Tiotropium bromide 1 cap inhalation daily -Tramadol 50 mg PO BID PRN -Zolpidem 10 mg PO Bedtime PRN Patient has a medical history, as follows: -Asthma-COPD overlap syndrome -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 -Renal Calcuil -Hypertension -High cholesterol -NIDDY -COPD -PTSD -Depression -Anxiety -Fibromyalgia -Cervical spondylosis -Allergic rhinitis -Nephrolithiasis -Nonalcoholic steatohepatitits -Chronic constipation -GERD -Ectatic aorta -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 - Hypothyroidism -History of DVT -History of cocaine abuse -Vertigo Patient has a surgical history, as follows: -Hx of esophagogastroduodenoscopy (EGD); 2017 -Hx of colonoscopy with polypectomy; 2016 w/TA , 2021= TA repeat in 5 years -Hx of selective injection of anesthetic agent around lumbar nerve root -Hx of right breast biopsy -Hx of hysterectomy due to bleeding -Hx of lithotripsy I discussed in detail the procedure and what to expect pre and post operatively. We discussed the risks, benefits and alternatives to the surgery and the rehabilitation course. The risks include infection, bleeding, nerve injury, ongoing pain, swelling, and stiffness, perioperative risk of injury to bones and soft tissues, and blood clots. I have answered all questions and with their understanding they have consented to move forward with a left knee arthroscopy to be performed on 07/02/[address] Shane Sanchez. Post operative medications were sent to the pharmacy, Oxycodone-acetaminophen 5- 325 mg (Percocet) PO Q4-6H PRN, quantity 42 tabs for 7 days, while in the office today. The patient was instructed that she should obtain the prescription prior to surgery but should not consume until after the procedure; as these should only be taken for post operative pain management. Should the patient take these medications before surgery, a refill will not be sent to the pharmacy until their scheduled refill date. Follow-up will be at the post operative appointment on 07/10/2023 at 1:15 pm, or sooner if needed. Medications: New hydrocodone-acetaminophen 5-325 mg Partial Fill upon patient request. 1 tab PO Q8H PRN 21 tabs 0RF pain 7 days Patient Instructions: Scribed by Tania Edmond medical dermatologist, for Ana Maria Galloway PA-C on 06/26/2023 at 10:52 am, EST. Coding Level of Care Code Global (04036) Diagnoses Tear of medial meniscus of left knee, current, unspecified tear type, initial encounter S83.242A Encounter type: initial encounter Meniscus tear of knee type: unspecified type Tear current or old: current
== END 2023-06-26 11:21 | disposition home or self-care (01) ==
PROVIDERS: PCP Nurse Practitioner Primary Care; Visit Provider Physician Assistant
DX: S83.242A Other tear of medial meniscus, current injury, left knee, initial encounter (principal)
CPT/HCPCS: 99024

== ENCOUNTER → 2023-06-26 10:48 | Outpatient (BNVA) | payer OTHER, SELFPAY | PROVIDERS: PCP Nurse Practitioner Primary Care; Visit Provider Physician Assistant | DX: Z01.818 Encounter for other preprocedural examination (principal); S83.242A Other tear of medial meniscus, current injury, left knee, initial encounter | CPT/HCPCS: 99212 ==

== ENCOUNTER → 2023-07-02 08:35 | Day surgery (SDC) | payer OTHER, SELFPAY ==
--- NOTE | 2023-06-30 14:28 | HO.ANESPROP2 ---
HPI - Anesthesia Eval Consult details Narrative: 62yo F for Left Knee Arthroscopy Anesthesia Pre-Procedure Meds Is the patient on any of the following meds?: GLP1/DPP4 PMFSH Active Problems Active Problems: All Active Problems Tear of medial meniscus of left knee (Acute) Asthma-COPD overlap syndrome (Acute) Leg pain (Acute) Osteoarthritis of first carpometacarpal (CMC) joint of one hand (Acute) Trigger finger of left thumb (Acute) Kidney stone on left side (Acute) Small bowel motility disorder (Acute) MOCK (dyspnea on exertion) (Acute) Patellofemoral arthritis of left knee (Acute) Trochanteric bursitis of right hip (Acute) Chronic SI joint pain (Acute) COVID-19 (Acute) COVID-19 (Acute) Cubital tunnel syndrome on right (Acute) Carpal tunnel syndrome of right wrist (Acute) Renal calculi (Acute) UTI (urinary tract infection) (Acute) Tubular adenoma of colon (Acute) Hypertension (Acute) High cholesterol (Acute) NIDDY (non-insulin dependent diabetes mellitus in young) (Acute) COPD (chronic obstructive pulmonary disease) (Acute) Smoker (Acute) PTSD (post-traumatic stress disorder) (Acute) Depression with anxiety (Acute) Fibromyalgia (Acute) Cervical spondylosis (Acute) Plantar fasciitis (Acute) CTS (carpal tunnel syndrome) (Acute) Allergic rhinitis (Acute) Menopausal state (Acute) Nephrolithiasis (Acute) [place]EE[place] (nonalcoholic steatohepatitis) (Acute) Chronic idiopathic constipation (Acute) GERD (gastroesophageal reflux disease) (Acute) Ectatic aorta (Acute) Type 2 diabetes mellitus with hyperglycemia (Acute) Severe persistent asthma (Acute) Environmental allergies (Acute) Dry mouth (Acute) Bilateral knee pain (Acute) Bilateral hand pain (Acute) Papanicolaou smear for cervical cancer screening (Acute) Yeast infection (Acute) Hemorrhoids (Acute) Osteoarthritis of knees, bilateral (Acute) Spondylosis of lumbar region without myelopathy or radiculopathy (Acute) Bronchitis (Acute) Candidiasis of mouth and esophagus (Acute) Varicose veins of left lower extremity with inflammation (Acute) Acute asthma exacerbation (Acute) Vulvovaginitis (Acute) Tubular adenoma of colon (Acute) Asthma (Acute) Chest pain (Acute) Bronchitis (Acute) COPD exacerbation (Acute) Non-toxic multinodular goiter (Acute) Hypothyroidism (Acute) Past Medical History Medical History Preop pulmonary/respiratory exam Well woman exam with routine gynecological exam Renal calculi UTI (urinary tract infection) Allergic rhinitis Anxiety and depression Fibromyalgia HTN (hypertension) PTSD (post-traumatic stress disorder) Vertigo Diabetes Chest pain Spondylosis of cervical region without myelopathy or radiculopathy Bronchitis COPD exacerbation Low vitamin D level Non-toxic multinodular goiter Hypothyroidism DVT (deep venous thrombosis) Cocaine abuse Family History Family History Father No problems noted. 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 Meds Allergies Allergy/AdvReac Type Severity Reaction Status Date / Time aspirin [Aspirin] Allergy Mild ITCHY Verified 06/26/23 10:49 THROAT azithromycin Allergy Unknown Unknown Verified 06/26/23 10:49 naproxen Allergy Unknown Unknown Verified 06/26/23 10:49 simvastatin Allergy Unknown Unknown Verified 06/26/23 10:49 Fish Containing Products Allergy Swelling Verified 06/26/23 10:49 onion [ONION] AdvReac Mild RED FACE Verified 06/26/23 10:49 Home Medications ?Medication ?Instructions ?Recorded ?Confirmed ?Last Taken ?Type calcium carbonate 600 mg-vitamin 1 tab PO BID 11/20/19 02/18/23 Unknown History D3 10 mcg (400 unit) tablet potassium chloride 20 mEq 20 meq PO BID 11/20/19 02/18/23 Unknown History tablet,extended release(part/cryst) risperidone 0.5 mg tablet 0.5 mg PO BID 11/20/19 02/18/23 Unknown History zolpidem 10 mg tablet 10 mg PO BEDTIME PRN Insomnia 11/20/19 02/18/23 Unknown History clonazepam 1 mg tablet (Klonopin) 1 mg PO DAILY 03/08/20 02/18/23 Unknown History montelukast 10 mg tablet 10 mg PO BEDTIME 03/08/20 02/18/23 Unknown History multivitamin-ferrous 1 tab PO DAILY 07/06/21 02/18/23 Unknown History fumarate-folic acid 18 mg-400 mcg tablet (Certavite-Antioxidant) fluoride (sodium) 1.1 % dental appl PO 10/16/21 02/18/23 Unknown History cream (SF 5000 Plus) buspirone 7.5 mg tablet 7.5 mg PO BID 01/31/22 02/18/23 Unknown History tramadol 50 mg tablet 50 mg PO BID PRN 01/31/22 02/18/23 Unknown History diclofenac sodium 1 % topical gel g topical 05/07/22 02/18/23 Unknown History acetaminophen 325 mg tablet 325 mg PO PRN pain 06/11/22 02/18/23 Unknown History Exam Pertinent Lab Results Pertinent Lab Results: Laboratory Tests 06/02/23 15:34 WBC 6.0 Hgb 13.9 Hct 40.8 Plt Count 275 Sodium 143 Potassium 4.1 Chloride 111 H Carbon Dioxide 23 BUN 15 Creatinine 0.92 Narrative Narrative: EKG 05/2023 Vent. Rate : 101 BPM Atrial Rate : 101 BPM P-R Int : 194 ms QRS Dur : 096 ms QT Int : 360 ms P-R-T Axes : 046 -55 042 degrees QTc Int : 466 ms Sinus tachycardia Left anterior fascicular block Minimal voltage criteria for LVH, may be normal variant ( [place] product ) Abnormal ECG When compared with ECG of 10-MAR-2023 17:23, ND interval has decreased Assessment and Plan Assessment Anesthesia Assessment: Chart Reviewed Final Anesthetic Review Family History of Problems with Anesthesia: No History of Problems with Anesthesia: No
--- NOTE | 2023-07-02 10:07 | PC.NURSE ---
pt sts took her ozempic fridayjune 28 anesthesia aware and cancelled patient pt didnot want to wait to speak to dr cardoza sts will call office and reschedule
== END | disposition home or self-care (01) ==
PROVIDERS: PCP Nurse Practitioner Primary Care; Visit Provider Orthopaedic Surgery
DX: S83.242A Other tear of medial meniscus, current injury, left knee, initial encounter (principal); Z53.09 Procedure and treatment not carried out because of other contraindication; Z79.85 Long-term (current) use of injectable non-insulin antidiabetic drugs; E11.9 Type 2 diabetes mellitus without complications
CPT/HCPCS: J0690

== ENCOUNTER 2023-07-04 13:28 | Outpatient (AMB) | payer OTHER, SELFPAY ==
--- NOTE | 2023-07-04 13:30 | A.OFFVIS_ITS ---
Intake Visit Reasons: 9 month follow up/ US Intake Note: Patient presents today for a follow-up on US Results Meds- None Allergies to Antibiotic- Azithromycin Blood Thinner- None Data Acquisition Technician Required: Yes Data Acquisition Technician Language: Forming Machine Upkeep Mechanic Name: Jayleen Dorman Information Interpreted: non-clinical & clinical Accompanied by: Self / Same As Patient Allergies aspirin [Aspirin] Allergy (Mild, Verified 06/26/23 10:49) ITCHY THROAT azithromycin Allergy (Unknown, Verified 06/26/23 10:49) Unknown naproxen Allergy (Unknown, Verified 06/26/23 10:49) Unknown simvastatin Allergy (Unknown, Verified 06/26/23 10:49) Unknown Fish Containing Products Allergy (Verified 06/26/23 10:49) Swelling onion [ONION] Adverse Reaction (Mild, Verified 06/26/23 10:49) RED FACE HPI Comments Details: 07/04/2023--Nuvia is a 62-year-old female who presents today via tele-visit for a 9 month follow up on US results. Certified c++ quant developer present during telehealth visit. The patient denies irritative voiding symptoms. The patient denies gross hematuria or renal colic symptoms. I have discussed with her that renal ultrasound 06/11/2023 was reviewed and no renal calculi noted. In the right kidney cortical defect at the interpolar region of the right kidney, which is difficult to evaluate as visualization is limited that needs further evaluation. I will order a CT abdomen with and without IV contrast. Review of chart laboratory data: Serum BUN 15, creatinine 0.92. Will continue vitamin B6 100 mg daily. 35 minutes spent in review of records pertaining to this visit and including discussion with the patient and documentation of this visit. Review of charts: 10/03/2022? The patient is a [place]ian speaking female. Certified event executive was present during the visit. She was last seen by me on 04/05/2022 for nephrolithiasis. Recommended to continue monitor with imaging and continue vitamin B6 daily at that time. She has had US of the abdomen done on 09/26/2022. I reviewed the results of the renal US from 09/17/2022 revealed no kidney stones were visualized, no hydronephrosis. She states she is taking vitamin B6 daily. 04/05/2022. nephrolithiasis, Burundian speaker.? [place]ian translation provided in office by Certified medical insurance coding specialist I reviewed imaging 02/01/2023 - CT Abd/pelvis - left kidney 2.5 cm exophytic cyst.? 3 mm left renal stone pt asymptomatic. Plan cont to monitor with imaging. Vit B6 100mg. Prior Imaging - 10/08 renal ultrasound no evidence of stones PFSH Medical History Preop pulmonary/respiratory exam Well woman exam with routine gynecological exam Renal calculi UTI (urinary tract infection) Allergic rhinitis Anxiety and depression Fibromyalgia HTN (hypertension) PTSD (post-traumatic stress disorder) Vertigo Diabetes Chest pain Spondylosis of cervical region without myelopathy or radiculopathy Bronchitis COPD exacerbation Low vitamin D level Non-toxic multinodular goiter Hypothyroidism DVT (deep venous thrombosis) Cocaine abuse Surgical History History of esophagogastroduodenoscopy (EGD) H/O colonoscopy with polypectomy History of selective injection of anesthetic agent around lumbar nerve root Hx of right breast biopsy History of hysterectomy History of lithotripsy Family History Father No problems noted. 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 Female Reproductive History Menstrual Age of Menarche: 10 Review of Systems Const All systems reviewed & are unremarkable except as noted in HPI and below Reports no additional complaints Eyes Reports no additional complaints ENT Reports no additional complaints Card Reports no additional complaints Resp Reports no additional complaints GI Reports no additional complaints Reports as per HPI Musc Reports no additional complaints Skin/Breast Reports system reviewed and no additional complaints, except as documented Neuro Reports no additional complaints Psych Reports no additional complaints Endo Reports no additional complaints Bruno/Lymph Reports no additional complaints Aller/Immun Reports no additional complaints Telehealth Telehealth Telehealth Platform: [facility] Location of provider rendering services: practice address Location of patient: address on file Patient Identification confirmed using: Name, : Yes Telehealth method: voice only Patient verbally consented to treatment: Yes Patient verbally consented to billing insurance company: Yes Patient informed of any privacy concerns related to visit: Yes Minutes spent on Phone/Video with Pt.: 15 Results Reviewed Results Reviewed: Date of Service: 06/04/23 EXAMINATION: US RETROPERITONEAL LIMITED (RENAL ONLY) CLINICAL INFORMATION: Calculus of kidney. COMPARISON: Ultrasound abdomen complete 05/15/2023 and 09/26/2022. CT abdomen and pelvis 02/01/2022. X-ray abdomen KUB 05/15/2017 and 04/21/2017. TECHNIQUE: Real-time imaging of the kidneys. Technically limited study secondary to body habitus. Limited visualization due to bowel gas. FINDINGS: RIGHT KIDNEY: 10.4 x 3.9 x 5.0 cm (SAG x AP x TRV). No hydronephrosis. No renal calculi. There appears to be a focal cortical defect at the interpolar region of the right kidney, which is difficult to evaluate as visualization is limited due to bowel gas. LEFT KIDNEY: 11.9 x 4.4 x 3.7 cm (SAG x AP x TRV). No hydronephrosis. No renal calculi. Renal cortical thickness is normal. Limited visualization. IMPRESSION: There appears to be a focal cortical defect at the interpolar region of the right kidney, which is difficult to evaluate as visualization is limited due to bowel gas. CT scan with intravenous contrast recommended for further evaluation. Date of Service: 02/01/22 CT ABDOMEN AND PELVIS WITHOUT CONTRAST? CLINICAL INFORMATION: Right low back pain. Right lower quadrant pain. History of kidney stones.? COMPARISON: CT scans dating between April 15, 2021 and October 17, 2010? FINDINGS: LUNG BASES: The lung bases appear clear, with no evidence of inflammation or nodules.? LIVER, GALLBLADDER, AND BILIARY TREE: The liver appears unremarkable in size, shape, and attenuation. No focal hepatic lesion or biliary ductal dilatation is appreciated. Unremarkable appearance of the gallbladder. PANCREAS: Unremarkable? SPLEEN: Unremarkable? ADRENAL GLANDS: Unremarkable? KIDNEYS AND URETERS: Approximately 2.5 cm, exophytic, benign left upper pole simple renal cyst. 3 mm, nonobstructing left lower pole collecting system stone. No stone identified on the right. No evidence of hydronephrosis, hydroureter, or perinephric stranding on either side. BLADDER: Collapsed, therefore suboptimally evaluated. Grossly unremarkable.? GASTROINTESTINAL TRACT: Unremarkable appearance of the stomach and small bowel. Sigmoid and descending colonic diverticulosis without evidence of diverticulitis. Normal-appearing distal ileum and vermiform appendix.? ABDOMINAL WALL: Approximately 10.5 x by 4 cm right lateral abdominal wall lipoma appears unchanged over at least 6 years, therefore benign (image 52, series 3). There is eventration versus widemouth, 2.5 cm umbilical herniation. LYMPH NODES: No evidence of adenopathy by size criteria. VASCULAR: Mild fusiform aneurysmal dilation of the ascending thoracic aorta measuring approximately 4.2 cm in diameter. Mildly atherosclerotic aorta. Mildly ectatic infrarenal abdominal aorta. No aneurysm. PELVIC VISCERA: Status post hysterectomy, unchanged. OSSEOUS STRUCTURES: Unremarkable? IMPRESSION: ? No acute finding.? 4.2 cm ascending thoracic aortic aneurysm. Assessment & Plan Assessment & Plan (1) Abnormal finding on ultrasound: Code(s): R93.89 - Abnormal findings on diagnostic imaging of other specified body structures Category: Medical (2) History of kidney stones: Code(s): Z87.442 - Personal history of urinary calculi Category: Medical Plan CT abdomen with and without IV contrast. Continue vitamin B6 100 mg daily Orders: Orders CT abdomen wo/w IV con Today R93.89 - Abnormal findings on diagnostic imaging of other specified body structures, Z87.442 - Personal history of urinary calculi Patient Instructions: The patient had an opportunity to ask questions regarding treatment plan. The patient expressed understanding and agreement with the above treatment plan. The patient is aware they should contact our office by phone for worsening of their current condition or the appearance of new symptoms. Compliance is encouraged with any medications and followup testing that is ordered. It is a privilege to be allowed the opportunity to participate in the urologic care of your patient. If you have any questions or concerns regarding treatment for the above conditions please do not hesitate to contact me. The office telephone contact is [phone]. This note is constructed in part using voice recognition software. While every effort has been made to ensure accuracy field education director errors may have been included. Yours sincerely, Moses Mccoy MD Coding Level of Care Code Tele Est Pt Level 4 (83594) Diagnoses Abnormal finding on ultrasound R93.89 History of kidney stones Z87.442
== END 2023-07-04 14:03 | disposition home or self-care (01) ==
LOC: HO.HUSH 13:28
PROVIDERS: PCP Nurse Practitioner Primary Care; Visit Provider Urology
DX: R93.89 Abnormal findings on diagnostic imaging of other specified body structures (principal); Z87.442 Personal history of urinary calculi
CPT/HCPCS: 99442

== ENCOUNTER → 2023-07-04 13:28 | Outpatient (BNVA) | payer OTHER, SELFPAY | PROVIDERS: PCP Nurse Practitioner Primary Care; Visit Provider Urology ==

== ENCOUNTER 2023-07-09 06:08 | Day surgery (SDC) | payer OTHER, SELFPAY ==
--- NOTE | 2023-07-08 08:33 | P.CONAN_ITS ---
Documented by User: Swapna Lockwood NP 07/08/23 08:33 HPI - Anesthesia Eval Consult details Narrative: 62yo F for Left Knee Arthroscopy Anesthesia Pre-Procedure Meds Is the patient on any of the following meds?: GLP1/DPP4 PMFSH Active Problems Active Problems: All Active Problems History of kidney stones (Acute) Abnormal finding on ultrasound (Acute) Tear of medial meniscus of left knee (Acute) Asthma-COPD overlap syndrome (Acute) Leg pain (Acute) Osteoarthritis of first carpometacarpal (CMC) joint of one hand (Acute) Trigger finger of left thumb (Acute) Kidney stone on left side (Acute) Small bowel motility disorder (Acute) MOCK (dyspnea on exertion) (Acute) Patellofemoral arthritis of left knee (Acute) Trochanteric bursitis of right hip (Acute) Chronic SI joint pain (Acute) COVID-19 (Acute) COVID-19 (Acute) Cubital tunnel syndrome on right (Acute) Carpal tunnel syndrome of right wrist (Acute) Renal calculi (Acute) UTI (urinary tract infection) (Acute) Tubular adenoma of colon (Acute) Hypertension (Acute) High cholesterol (Acute) NIDDY (non-insulin dependent diabetes mellitus in young) (Acute) COPD (chronic obstructive pulmonary disease) (Acute) Smoker (Acute) PTSD (post-traumatic stress disorder) (Acute) Depression with anxiety (Acute) Fibromyalgia (Acute) Cervical spondylosis (Acute) Plantar fasciitis (Acute) CTS (carpal tunnel syndrome) (Acute) Allergic rhinitis (Acute) Menopausal state (Acute) Nephrolithiasis (Acute) OKEEFE (nonalcoholic steatohepatitis) (Acute) Chronic idiopathic constipation (Acute) GERD (gastroesophageal reflux disease) (Acute) Ectatic aorta (Acute) Type 2 diabetes mellitus with hyperglycemia (Acute) Severe persistent asthma (Acute) Environmental allergies (Acute) Dry mouth (Acute) Bilateral knee pain (Acute) Bilateral hand pain (Acute) Papanicolaou smear for cervical cancer screening (Acute) Yeast infection (Acute) Hemorrhoids (Acute) Osteoarthritis of knees, bilateral (Acute) Spondylosis of lumbar region without myelopathy or radiculopathy (Acute) Bronchitis (Acute) Candidiasis of mouth and esophagus (Acute) Varicose veins of left lower extremity with inflammation (Acute) Acute asthma exacerbation (Acute) Vulvovaginitis (Acute) Tubular adenoma of colon (Acute) Asthma (Acute) Chest pain (Acute) Bronchitis (Acute) COPD exacerbation (Acute) Non-toxic multinodular goiter (Acute) Hypothyroidism (Acute) Past Medical History Medical History Preop pulmonary/respiratory exam Well woman exam with routine gynecological exam Renal calculi UTI (urinary tract infection) Allergic rhinitis Anxiety and depression Fibromyalgia HTN (hypertension) PTSD (post-traumatic stress disorder) Vertigo Diabetes Chest pain Spondylosis of cervical region without myelopathy or radiculopathy Bronchitis COPD exacerbation Low vitamin D level Non-toxic multinodular goiter Hypothyroidism DVT (deep venous thrombosis) Cocaine abuse Family History Family History Father No problems noted. Mother Myocardial infarction CVA (cerebral vascular accident) Family history of problems with anesthesia: No Surgical History Surgical History History of esophagogastroduodenoscopy (EGD) H/O colonoscopy with polypectomy History of selective injection of anesthetic agent around lumbar nerve root Hx of right breast biopsy History of hysterectomy History of lithotripsy History of Problems with Anesthesia: No Social History Social History Household Members: None Alcohol intake: never Patient Tobacco Use Status: Never used Tobacco Are you DNR?: No Advance Directives: No Advance Directives Information Provided: Yes Current occupational status: disabled 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 Meds Allergies Allergy/AdvReac Type Severity Reaction Status Date / Time aspirin [Aspirin] Allergy Mild ITCHY Verified 07/09/23 06:44 THROAT azithromycin Allergy Unknown Unknown Verified 07/09/23 06:44 naproxen Allergy Unknown Unknown Verified 07/09/23 06:44 simvastatin Allergy Unknown Unknown Verified 07/09/23 06:44 Fish Containing Products Allergy Swelling Verified 07/09/23 06:44 onion [ONION] AdvReac Mild RED FACE Verified 07/09/23 06:44 Home Medications ?Medication ?Instructions ?Recorded ?Confirmed ?Last Taken ?Type calcium carbonate 600 mg-vitamin 1 tab PO BID 11/20/19 07/09/23 Unknown History D3 10 mcg (400 unit) tablet potassium chloride 20 mEq 20 meq PO BID 11/20/19 07/09/23 Unknown History tablet,extended release(part/cryst) zolpidem 10 mg tablet 10 mg PO BEDTIME PRN Insomnia 11/20/19 07/09/23 Unknown History clonazepam 1 mg tablet (Klonopin) 1 mg PO DAILY 03/08/20 07/09/23 Unknown History montelukast 10 mg tablet 10 mg PO BEDTIME 03/08/20 07/09/23 Unknown History multivitamin-ferrous 1 tab PO DAILY 07/06/21 07/09/23 Unknown History fumarate-folic acid 18 mg-400 mcg tablet (Certavite-Antioxidant) fluoride (sodium) 1.1 % dental appl PO 10/16/21 02/18/23 Unknown History cream (SF 5000 Plus) buspirone 7.5 mg tablet 7.5 mg PO BID 01/31/22 07/09/23 Unknown History tramadol 50 mg tablet 50 mg PO BID PRN Pain 01/31/22 07/09/23 Unknown History diclofenac sodium 1 % topical gel g topical 05/07/22 02/18/23 Unknown History acetaminophen 325 mg tablet 325 mg PO PRN pain 06/11/22 02/18/23 Unknown History amlodipine 10 mg tablet 10 mg PO DAILY 07/09/23 07/09/23 Unknown History atorvastatin 80 mg tablet 80 mg PO BEDTIME 07/09/23 07/09/23 Unknown History cetirizine 10 mg tablet 10 mg PO QPM 07/09/23 07/09/23 Unknown History enalapril maleate 20 mg tablet 20 mg PO DAILY 07/09/23 07/09/23 Unknown History Exam Pertinent Lab Results Pertinent Lab Results: Laboratory Tests 06/02/23 15:34 WBC 6.0 Hgb 13.9 Hct 40.8 Plt Count 275 Sodium 143 Potassium 4.1 Chloride 111 H Carbon Dioxide 23 BUN 15 Creatinine 0.92 Narrative Narrative: EKG 05/2023 Vent. Rate : 101 BPM Atrial Rate : 101 BPM P-R Int : 194 ms QRS Dur : 096 ms QT Int : 360 ms P-R-T Axes : 046 -55 042 degrees QTc Int : 466 ms Sinus tachycardia Left anterior fascicular block Minimal voltage criteria for LVH, may be normal variant ( [place] product ) Abnormal ECG When compared with ECG of 10-MAR-2023 17:23, [place] interval has decreased Assessment and Plan Assessment Anesthesia Assessment: Chart Reviewed Final Anesthetic Review Family History of Problems with Anesthesia: No History of Problems with Anesthesia: No Documented by User: Balbina Márquez MD 07/09/23 07:27 [facility] Past Medical History Medical History Preop pulmonary/respiratory exam Well woman exam with routine gynecological exam Renal calculi UTI (urinary tract infection) Allergic rhinitis Anxiety and depression Fibromyalgia HTN (hypertension) PTSD (post-traumatic stress disorder) Vertigo Diabetes Chest pain Spondylosis of cervical region without myelopathy or radiculopathy Bronchitis COPD exacerbation Low vitamin D level Non-toxic multinodular goiter Hypothyroidism DVT (deep venous thrombosis) Cocaine abuse Family History Family History Father No problems noted. 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 Meds Allergies Allergy/AdvReac Type Severity Reaction Status Date / Time aspirin [Aspirin] Allergy Mild ITCHY Verified 07/09/23 06:44 THROAT azithromycin Allergy Unknown Unknown Verified 07/09/23 06:44 naproxen Allergy Unknown Unknown Verified 07/09/23 06:44 simvastatin Allergy Unknown Unknown Verified 07/09/23 06:44 Fish Containing Products Allergy Swelling Verified 07/09/23 06:44 onion [ONION] AdvReac Mild RED FACE Verified 07/09/23 06:44 Home Medications ?Medication ?Instructions ?Recorded ?Confirmed ?Last Taken ?Type calcium carbonate 600 mg-vitamin 1 tab PO BID 11/20/19 07/09/23 Unknown History D3 10 mcg (400 unit) tablet potassium chloride 20 mEq 20 meq PO BID 11/20/19 07/09/23 Unknown History tablet,extended release(part/cryst) zolpidem 10 mg tablet 10 mg PO BEDTIME PRN Insomnia 11/20/19 07/09/23 Unknown History clonazepam 1 mg tablet (Klonopin) 1 mg PO DAILY 03/08/20 07/09/23 Unknown History montelukast 10 mg tablet 10 mg PO BEDTIME 03/08/20 07/09/23 Unknown History multivitamin-ferrous 1 tab PO DAILY 07/06/21 07/09/23 Unknown History fumarate-folic acid 18 mg-400 mcg tablet (Certavite-Antioxidant) fluoride (sodium) 1.1 % dental appl PO 10/16/21 02/18/23 Unknown History cream (SF 5000 Plus) buspirone 7.5 mg tablet 7.5 mg PO BID 01/31/22 07/09/23 Unknown History tramadol 50 mg tablet 50 mg PO BID PRN Pain 01/31/22 07/09/23 Unknown History diclofenac sodium 1 % topical gel g topical 05/07/22 02/18/23 Unknown History acetaminophen 325 mg tablet 325 mg PO PRN pain 06/11/22 02/18/23 Unknown History amlodipine 10 mg tablet 10 mg PO DAILY 07/09/23 07/09/23 Unknown History atorvastatin 80 mg tablet 80 mg PO BEDTIME 07/09/23 07/09/23 Unknown History cetirizine 10 mg tablet 10 mg PO QPM 07/09/23 07/09/23 Unknown History enalapril maleate 20 mg tablet 20 mg PO DAILY 07/09/23 07/09/23 Unknown History Exam Airway Mallampati Class: II TM Dist: >3cm Neck ROM: Full Heart: rrr Lungs: exp wheeze, treatment given Assessment and Plan Assessment Anesthesia Assessment: Anesthesia Plan Discussed and Smoking Cess. Discussed Final Anesthetic Review NPO: Yes ASA Class: III Final Preanesthetic Review: No Changes in Pt Med Stat, Meds/Allgs Chart Reviewed, Consent Obtained/Reviewed and Anes Risks/Benef Reviewed Patient Risk: Intermediate Procedure Risk: Intermediate Anesthetic Plan Anesthetic Plan: GA (tight resp sounds) Disposition: Standard PACU
[2023-07-09] VITALS (10 sets, daily range): BP systolic 116–150; BP diastolic 64–89; PULSE 63–80; RESP 16–18; TEMP 36.6–36.9; O2SAT 95–97; BMI 35.5
--- NOTE | 2023-07-09 07:14 | MHC.SHP ---
Pre-Procedural Eval Section A - 24 Hr Update-Section A only Date of Service: 07/09/23 The patient is an INPATIENT: No Changes since office visit: No Cold of Flu in the past 2 weeks, No New Medical Problems, No Changes in Medication and No Patient answered all questions The patient has been examined within 24 hours of the surgical procedure. The History & Physical has been completed within 30 days and I have reviewed it.: Yes Section B - Complete if H&P > 30 days Chief Complaint: Other tear of medial meniscus, current injury, lef Allergies: Allergies Allergy/AdvReac Type Severity Reaction Status Date / Time aspirin [Aspirin] Allergy Mild ITCHY Verified 07/09/23 06:44 THROAT azithromycin Allergy Unknown Unknown Verified 07/09/23 06:44 naproxen Allergy Unknown Unknown Verified 07/09/23 06:44 simvastatin Allergy Unknown Unknown Verified 07/09/23 06:44 Fish Containing Products Allergy Swelling Verified 07/09/23 06:44 onion [ONION] AdvReac Mild RED FACE Verified 07/09/23 06:44 Plan I have reviewed the history and physical and performed a pertinent physical examination on my patient. No changes have occurred unless specified. Time Spent With Patient Time: Total time managing care of this patient today ____ minutes.
[2023-07-09] MEDS: Albuterol Sulfate (0.083%) 2.5 MG/3 ML VIAL.NEB INHALE (07:28)
--- NOTE | 2023-07-09 08:11 | W.PM.OPN ---
Operative Note Operative Note Date of Service: 07/09/23 Narrative: Date of Service: 07/09/23 Pre-op diagnosis: Left knee medial meniscus tear Post-op diagnosis: same Procedure: Left knee partial medial meniscectomy and chondroplasty Implants: none Surgeon: Shane Sanchez MD Anesthesia: GETA Was an Supervisor Shaving And Splitting used for this Procedure?: No Estimated blood loss (mL): 5 Tourniquet time (min): 20 IV fluids (mL): 500 Pathology: none sent Condition: stable Disposition: PACU Procedure in detail: Patient was brought to the operating room placed supine on the arthroscopic table and prepped and draped in standard sterile fashion. A time-out was called to identify proper site proper procedure proper surgeon and IV antibiotics per weight were administered. I began by exsanguinating the limb and insufflating tourniquet to 300 mm Hg. Then made a standard anterolateral stab incision. The knee was insufflated with water and 30 degree arthroscope was placed. There was grade 1/2 fibrillations of the patella b. There were chondral fragments in the suprapatellar pouch and the gutters. . I descended into the medial compartment where I made my medial portal under direct visualization. There was a radial tear of the posterior horn of the medial meniscus. The root was intact and there was grade 1/2 changes in the tibial plateau but minimal. I used a combination of biter shaver and cautery to remove unstable portions of the meniscus. Apporximately 25% meniscal volume was removed. There was a chondral/ soft tissue fragment in the notch that I removed with a shaver. Once I was satisfied with this the ACL was examined and found to be intact and the lateral compartment also was without the need for intervention. I then removed all instrumentation and closed the portals with skin glue. 25 mL of 2% Marcaine with epinephrine was injected into the joint and the surrounding soft tissues. Patient was then placed in sterile dressing extubated brought recovery room stable condition. There were no known complications.
[2023-07-09] MEDS: ondansetron HCL 4 MG/2 ML VIAL IVPUSH (08:40)
[2023-07-09] MEDS: fentaNYL citrate/PF 100 MCG/2 ML VIAL 25 MCG IVPUSH (08:59)
[2023-07-09 09:00] LABS: Glucose, Whole Blood 216 mg/dL (60-115)
--- NOTE | 2023-07-09 09:54 | HO.INF ---
PATIENT STATES SHE ALREADY HAS HER PRESCRIPTIONS AT HOME.
== END 2023-07-09 09:56 | disposition home or self-care (01) ==
LOC: HO.SSS 06:09
PROVIDERS: PCP Nurse Practitioner Primary Care; Visit Provider Orthopaedic Surgery
PROC: (CPT 29870; principal; 2023-07-09 07:30)
DX: S83.242A Other tear of medial meniscus, current injury, left knee, initial encounter (principal); X58.XXXA Exposure to other specified factors, initial encounter; E11.9 Type 2 diabetes mellitus without complications; I10 Essential (primary) hypertension; E78.5 Hyperlipidemia, unspecified; J44.9 Chronic obstructive pulmonary disease, unspecified; K75.81 Nonalcoholic steatohepatitis (NASH); F14.10 Cocaine abuse, uncomplicated; Z90.710 Acquired absence of both cervix and uterus; Z86.718 Personal history of other venous thrombosis and embolism; Z88.1 Allergy status to other antibiotic agents; Z88.8 Allergy status to other drugs, medicaments and biological substances; Z91.018 Allergy to other foods; Z79.02 Long term (current) use of antithrombotics/antiplatelets; Z79.899 Other long term (current) drug therapy
CPT/HCPCS: 29881; 82947; 94640; J0131; J0171; J0690; J2250; J2405; J2704; J2795; J3010

== ENCOUNTER → 2023-07-09 06:08 | Outpatient (BNV) | payer OTHER, SELFPAY | PROVIDERS: PCP Nurse Practitioner Primary Care; Visit Provider Orthopaedic Surgery | DX: S83.242A Other tear of medial meniscus, current injury, left knee, initial encounter (principal) | CPT/HCPCS: 29881 ==

== ENCOUNTER 2023-07-17 13:27 | Outpatient (AMB) | payer OTHER, SELFPAY ==
--- NOTE | 2023-07-17 13:33 | A.OFFVIS_ITS ---
Intake Visit Reasons: PO LT knee 07/09/23 NE Intake Note: Nuvia is a 62 year old female who presents today for a post op appointment s/p left knee 07/09/23 NE. Patient reports she is doing well, however still having pain. She states that she has been doing light exercises at home. Pain is on her knee but it moves to the back of her knee. Allergies aspirin [Aspirin] Allergy (Mild, Verified 07/17/23 13:40) ITCHY THROAT azithromycin Allergy (Unknown, Verified 07/17/23 13:40) Unknown naproxen Allergy (Unknown, Verified 07/17/23 13:40) Unknown simvastatin Allergy (Unknown, Verified 07/17/23 13:40) Unknown Fish Containing Products Allergy (Verified 07/17/23 13:40) Swelling onion [ONION] Adverse Reaction (Mild, Verified 07/17/23 13:40) RED FACE HPI HPI PO LT knee 07/09/23 NE: Details: 62-year-old female who returns to the office today for post-op left knee , 07/09/[address] Sanchez. She continues to have pain in her knee that radiates to the back of her knee. She has been working on light exercises at home as instructed. She is doing well otherwise and has no concerns today. [facility] Medical History Preop pulmonary/respiratory exam Well woman exam with routine gynecological exam Renal calculi UTI (urinary tract infection) Allergic rhinitis Anxiety and depression Fibromyalgia HTN (hypertension) PTSD (post-traumatic stress disorder) Vertigo Diabetes Chest pain Spondylosis of cervical region without myelopathy or radiculopathy Bronchitis COPD exacerbation Low vitamin D level Non-toxic multinodular goiter Hypothyroidism DVT (deep venous thrombosis) Cocaine abuse Surgical History History of esophagogastroduodenoscopy (EGD) H/O colonoscopy with polypectomy History of selective injection of anesthetic agent around lumbar nerve root Hx of right breast biopsy History of hysterectomy History of lithotripsy Family History Father No problems noted. 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 Full ROM. Calf supple, nontender. NVI. Results Reviewed Results Reviewed: Brief Operative Note Date of Service: 07/09/23 Pre-op diagnosis: Left knee medial meniscus tear Post-op diagnosis: same Procedure: Left knee partial medial meniscectomy and chondroplasty Implants: none Surgeon: Shane Sanchez MD Assessment & Plan Assessment & Plan (1) Tear of medial meniscus of left knee: Code(s): S83.242A - Other tear of medial meniscus, current injury, left knee, initial encounter Category: Medical Qualifiers: Encounter type: initial encounter Meniscus tear of knee type: unspecified type Tear current or old: current Qualified Code(s): S83.242A - Other tear of medial meniscus, current injury, left knee, initial encounter Plan She was given an order for physical therapy to work on ROM and quad strengthening. She will increase activity as tolerated and see me back in [address] Sanchez, sooner if needed. Orders: Orders PT Evaluation and Treatment 07/17/23 S83.242A - Other tear of medial meniscus, current injury, left knee, initial encounter Patient Instructions: Scribed for Rupali Scott PA-C, by Ancelmo Maldonado medical supply technician, on 07/17/2023 at 1:30 PM EST.? I, Rupali Scott PA-C, have personally reviewed and agree with the information entered by the scribe. Coding Level of Care Code Global (19312) Diagnoses Tear of medial meniscus of left knee, current, unspecified tear type, initial encounter S83.242A Encounter type: initial encounter Meniscus tear of knee type: unspecified type Tear current or old: current
== END 2023-07-22 21:05 | disposition home or self-care (01) ==
LOC: HO.HOS 13:27
PROVIDERS: PCP Nurse Practitioner Primary Care; Visit Provider Physician Assistant
DX: S83.242A Other tear of medial meniscus, current injury, left knee, initial encounter (principal)
CPT/HCPCS: 99024

== ENCOUNTER → 2023-07-17 13:27 | Outpatient (BNVA) | payer OTHER, SELFPAY | PROVIDERS: PCP Nurse Practitioner Primary Care; Visit Provider Physician Assistant | DX: S83.242D Other tear of medial meniscus, current injury, left knee, subsequent encounter (principal) | CPT/HCPCS: 99212 ==

== ENCOUNTER 2023-07-28 11:40 | Outpatient (RCR) | payer OTHER, SELFPAY ==
--- NOTE | 2023-07-30 13:21 | MHC.PT.EP ---
[facility] [place] Office [place] Office [place] Office [address] [phone] F: [phone] F: [phone] F: [phone] F: [phone] Physical Therapy Plan of Care Date of Evaluation: 07/28/23 Date of Surgery: 07/09/23 Diagnosis: L knee meniscectomy and chondroplasty Assessment: Pt is a 62yo female who presents 2.5 weeks after L knee meniscus repair and chondroplasty. Pt reports the knee is doing well, but struggles with mobility mostly due to back pain. PT exam reveals minimal ROM impairment, hip/core weakness, abnormal gait. Skilled PT indicated to reduce pain, teach HEP to maximize ROM and flexibility, and improve her gait quality to return to PLOF. Pt in agreement with POC and is motivated to participate. Frequency and Duration: The patient will be seen 2x/week, x 4 weeks Short Term Goals: 1. In 2 weeks, patient will be I with phase 2 HEP, including ITB stretching and standing 4 way hip SLR. 2. In 2 weeks, improve L knee flexion to equal R LE. Power Equipment Technology Instructor Goals: 1. In 4 weeks, patient will be able to maintain SLS on L LE x 10 seconds, indicating improved hip abductor strength. 2. In 4 weeks, improve LEFS score at least 10 points indicating reduced pain and improved functional mobility. 3. Pt will be I with standing CKC exercises program upon D/C. Treatment Plan: Modalities to reduce pain, spasms and effusion. Manual therapy to restore motion and function. Therapeutic exercise to improve strength and flexibility. Neuromuscular re-education for posture and balance. Therapeutic activities to return to functional activities of daily living. Electronically signed by: Natacha Hernandez PT, DPT Please sign and return to therapist. Thank you for your referral.
--- NOTE | 2023-12-15 12:56 | MHC.PT.DC ---
[facility] [place] Office [place] Office [place] Office [address] Fred Brown [address] [phone] F: [phone] F: [phone] F: [phone] F: [phone] Physical Therapy Discharge Report Diagnosis: L knee meniscectomy and chondroplasty Date of Surgery: 07/09/23 Date of Evaluation: 07/28/23 Date of Discharge: 12/15/23 Treatments to Date: 1 Cancellations to Date: No Shows to Date: Discharge Status: Patient Elected to Stop Recommend MD Follow-up Visit Non-compliance Discharge Summary: Pt is a 62yo female who presents 2.5 weeks after L knee meniscus repair and chondroplasty. Pt reports the knee is doing well, but struggles with mobility mostly due to back pain. PT exam reveals minimal ROM impairment, hip/core weakness, abnormal gait. Skilled PT indicated to reduce pain, teach HEP to maximize ROM and flexibility, and improve her gait quality to return to PLOF. Pt in agreement with POC and is motivated to participate. However, patient did not return for additional f/u visits post-op. Recommend f/u with MD as needed. Thank you for this referral. Electronically signed by: Please sign and return to therapist. Thank you for your referral.
== END 2023-12-15 12:56 | disposition home or self-care (01) ==
LOC: HO.PT 11:40
PROVIDERS: PCP Nurse Practitioner Primary Care; Visit Provider Physician Assistant
DX: S83.242D Other tear of medial meniscus, current injury, left knee, subsequent encounter (principal)
CPT/HCPCS: 97110; 97140; 97161

== ENCOUNTER 2023-07-30 19:08 | Outpatient (REF) | payer OTHER, SELFPAY ==
[2023-07-30 22:28] LABS: Influenza A PCR NEGATIVE (Negative); Influenza B PCR NEGATIVE (Negative); Resp Syncy Virus RNA Qual PCR NEGATIVE (Negative); SARS COV2 PCR INHOUSE NEGATIVE (Negative)
== END 2023-07-30 19:09 | disposition home or self-care (01) ==
LOC: HO.HHCLNP 19:08
PROVIDERS: Visit Provider Emergency Medicine
DX: R68.89 Other general symptoms and signs (principal)
CPT/HCPCS: 0241U

== ENCOUNTER 2023-08-29 13:41 | Outpatient (AMB) | payer OTHER, SELFPAY ==
--- NOTE | 2023-08-29 13:43 | MHC.OFFVIS ---
Vital Signs 08/29/23 13:49 Weight 200 lb BP 108/72 Blood Pressure Location Lt brachial Position Sitting Pulse 90 Pulse Source Pulse Oximeter Intake Visit Reasons: Type 2 DM/CONFIRMED Intake Note: Patient presents today to follow up on D2MT. Last Diabetic Eye exam: 2023 Last Podiatry Visit: Doesn't have one. Random Glucose: 98 mg/dl HgA1c: 6.9% Tensile Tester Required: Yes Tensile Tester Language: Earthmoving Labourer Services: Tensile Tester Present Information Interpreted: non-clinical & clinical Accompanied by: Self / Same As Patient Allergies aspirin [Aspirin] Allergy (Mild, Verified 08/29/23 13:47) ITCHY THROAT azithromycin Allergy (Unknown, Verified 08/29/23 13:47) Unknown naproxen Allergy (Unknown, Verified 08/29/23 13:47) Unknown simvastatin Allergy (Unknown, Verified 08/29/23 13:47) Unknown Fish Containing Products Allergy (Verified 08/29/23 13:47) Swelling onion [ONION] Adverse Reaction (Mild, Verified 08/29/23 13:47) RED FACE Medication List - Last Reconciled 08/29/23 by Tereza Antunez PA-C acetaminophen 325 mg PO PRN albuterol sulfate 90 mcg/actuation (Ventolin HFA) 2 puffs inhalation Q4-6H PRN amlodipine 10 mg PO DAILY amoxicillin-pot clavulanate 875-125 mg 1 tab PO BID atorvastatin 80 mg PO BEDTIME blood sugar diagnostic (FreeStyle Lite Strips) USE TEST BLOOD SUGAR FOUR TIMES DAILY blood-glucose meter (FreeStyle Flash System kit) As directed buspirone 7.5 mg PO BID calcium carbonate-vitamin D3 600 mg-10 mcg (400 unit) 1 tab PO BID cetirizine 10 mg PO QPM clonazepam (Klonopin) 1 mg PO DAILY clotrimazole-betamethasone 1-0.05 % 1 appl topical BID 7 days dextrose 40% (Glutose-15) 15 grams PO DIRECTED diclofenac sodium 1% grams topical docusate sodium 100 mg PO BID 30 days enalapril maleate 20 mg PO DAILY flash glucose scanning reader (RepairyStyle Jalil 2 [place]) As directed flash glucose sensor (FreeStyle Jalil 2 Sensor kit) As directed change every 14 days fluoride (sodium) 1.1% (SF 5000 Plus) appl PO fluticasone propion-salmeterol 250-50 mcg/dose 1 ea inhalation BID 30 days gabapentin 400 mg PO BEDTIME hydrocodone-acetaminophen 5-325 mg 1 tab PO Q8H PRN 7 days hydrocortisone 2.5% (Proctosol HC) 1 appl ME BID ipratropium-albuterol 20-100 mcg/actuation (Combivent Respimat) 1 puff PO QID Lactobac. rhamnosus GG-inulin 10 billion cell -[address] ([facility] [employer] [facility]) 1 cap PO DAILY lancets (TRUEplus Lancets) USE TEST BLOOD SUGAR FOUR TIMES DAILY leg brace (Knee Support Brace) As directed levothyroxine 75 mcg PO QAM lidocaine 5% 1 patch topical DAILY miconazole nitrate (Monistat 3) 1 appful vaginal BEDTIME 3 days montelukast 10 mg PO BEDTIME jcvunkykfwto-vlxl-rufbm acid 18-400 mg-mcg (Certavite-Antioxidant) 1 tab PO DAILY omalizumab 300 mg subcut Q2W 28 days omeprazole 20 mg PO BID@0630,1630 pen needle, diabetic (UltiCare Pen Needle) USE FOUR TIMES DAILY potassium chloride ER 20 mEq PO BID prednisone 40 mg (2 x 20 mg) PO DAILY pyridoxine (vitamin B6) 100 mg PO DAILY semaglutide (Ozempic) 1 mg (0.75 mL) subcut QWEEK sennosides (senna) 17.2 mg (2 x 8.6 mg) PO BEDTIME tiotropium bromide (Spiriva with HandiHaler) 1 cap inhalation DAILY tramadol 50 mg PO BID PRN zolpidem 10 mg PO BEDTIME PRN HPI HPI Type 2 DM/CONFIRMED: Details: Patient is a 63-year-old female with a significant past medical history of asthma, COPD, osteoarthritis, kidney stones, hypertension, hyperlipidemia, type 2 diabetes, fatty liver, hypothyroidism, depression, anxiety who presents today for a follow-up regarding her diabetes. Tensile Tester: Maggi # [id number] DM-A1c today in office is 6.9. Her CGM download shows usage 97% at the time, average blood sugar 125, 6.3, 15.9% variability. In range 99% of the time, 1% high. Denies any hypoglycemic events. She is currently managed with Ozempic 1 mg and Humalog if needed. She states that she only takes the Humalog when she is put on prednisone for her COPD. CV: Blood pressure today in the office is 108/72. She is on amlodipine 10 mg. Not on an Michael or an Arb. Cholesterol is controlled with atorvastatin 80 mg. [facility] Medical History Preop pulmonary/respiratory exam Well woman exam with routine gynecological exam Renal calculi UTI (urinary tract infection) Allergic rhinitis Anxiety and depression Fibromyalgia HTN (hypertension) PTSD (post-traumatic stress disorder) Vertigo Diabetes Chest pain Spondylosis of cervical region without myelopathy or radiculopathy Bronchitis COPD exacerbation Low vitamin D level Non-toxic multinodular goiter Hypothyroidism DVT (deep venous thrombosis) Cocaine abuse Surgical History History of esophagogastroduodenoscopy (EGD) H/O colonoscopy with polypectomy History of selective injection of anesthetic agent around lumbar nerve root Hx of right breast biopsy History of hysterectomy History of lithotripsy Family History Father No problems noted. 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 Female Reproductive History Menstrual Age of Menarche: 10 Physical Exam Vital Signs: Last Vital Signs Pulse 90 08/29/23 13:49 BP 108/72 08/29/23 13:49 Const Orientation/consciousness: patient oriented x3 Neck Neck: Yes no lymphadenopathy Thyroid: Thyroid normal Carotids: no bruits Resp Auscultation: clear to auscultation bilaterally Cardio Rate: regular rate Rhythm: regular rhythm Heart sounds: S1 normal heart sound present and S2 normal heart sound present Peripheral pulses: dorsalis pedis present Neuro General: patient oriented x3, gait normal and no focal motor deficits Extrem Other: Monofilament sensation intact bilaterally. Vibratory sensation intact bilaterally. Skin intact. General: Yes normal to inspection Results AMB Hemoglobin A1c AMB Hemoglobin A1c 6.9 % Last Edit by LIZET Britton on 08/29/23 14:01 Results Reviewed Results Reviewed: Laboratory Last Values Glucose (Clinic) 98 mg/dL (60-115) 08/29/23 13:52 Hgb A1c (Clinic) 6.9 % (4.0-6.0) H 08/29/23 13:55 Laboratory Tests 05/26/23 06/02/23 08/29/23 16:00 15:34 13:52 Sodium 143 Potassium 4.1 Chloride 111 H BUN 15 Creatinine 0.92 Estim Creat Clear Calc 67.7 Estimated GFR > 60 Glucose (Clinic) 98 Hgb A1c (Clinic) TSH 1.52 08/29/23 13:55 Sodium Potassium Chloride BUN Creatinine Estim Creat Clear Calc Estimated GFR Glucose (Clinic) Hgb A1c (Clinic) 6.9 H TSH Assessment & Plan Assessment & Plan (1) Type 2 diabetes mellitus: Code(s): E11.9 - Type 2 diabetes mellitus without complications Category: Medical Qualifiers: Diabetes mellitus complication status: with other specified complication Diabetes mellitus long term acute care registered nurse insulin use: with long term acute care registered nurse use Qualified Code(s): E11.69 - Type 2 diabetes mellitus with other specified complication; Z79.4 - nursing home (current) use of insulin Plan: Continue current regimen. Labs ordered prior to next appointment. Follow-up in 3 months. Sooner if needed. Patient understands and agrees with the plan. (2) Hypothyroidism: Comment: Clinically and biochemically euthyroid on 75 ug of L-T4. Continue present management Code(s): E03.9 - Hypothyroidism, unspecified Category: Medical Plan: Last TSH WNL. Continue current regimen (3) Hypertension: Code(s): I10 - Essential (primary) hypertension Category: Medical Qualifiers: Hypertension type: primary hypertension Qualified Code(s): I10 - Essential (primary) hypertension Plan: BP today in office is normal. Continue current regimen. (4) High cholesterol: Code(s): E78.00 - Pure hypercholesterolemia, unspecified Category: Medical Plan: Continue atorvastatin. Will check lipids prior to next exam Orders: Orders Microalbumin, Random (w Creat) Today E03.9 - Hypothyroidism, unspecified, E11.69 - Type 2 diabetes mellitus with other specified complication, E78.00 - Pure hypercholesterolemia, unspecified, I10 - Essential (primary) hypertension, Z79.4 - nursing home (current) use of insulin Hemoglobin A1c Today E03.9 - Hypothyroidism, unspecified, E11.69 - Type 2 diabetes mellitus with other specified complication, E78.00 - Pure hypercholesterolemia, unspecified, I10 - Essential (primary) hypertension, Z79.4 - intermediate card tender (current) use of insulin Basic Metabolic Panel Today E03.9 - Hypothyroidism, unspecified, E11.69 - Type 2 diabetes mellitus with other specified complication, E78.00 - Pure hypercholesterolemia, unspecified, I10 - Essential (primary) hypertension, Z79.4 - nursing home (current) use of insulin Lipid Panel Today E78.00 - Pure hypercholesterolemia, unspecified AMB Hemoglobin A1c Today E11.65 - Type 2 diabetes mellitus with hyperglycemia, Z13.9 - Encounter for screening, unspecified Coding Level of Care Code Est Pt Level 4 (62984) Complex EM visit Add On G2211 Diagnoses Type 2 diabetes mellitus with other specified complication, with long-term current use of insulin E11.69; Z79.4 Diabetes mellitus complication status: with other specified complication Diabetes mellitus intermediate insulin use: with intermediate use Hypothyroidism E03.9 Primary hypertension I10 Hypertension type: primary hypertension High cholesterol E78.00
[2023-08-29 13:49] VITALS: BP 108/72; PULSE 90
[2023-08-29 13:56] LABS: Glucose, Whole Blood 98 mg/dL (60-115)
== END 2023-08-29 14:19 | disposition home or self-care (01) ==
PROVIDERS: PCP Nurse Practitioner Primary Care; Visit Provider Physician Assistant
DX: E11.69 Type 2 diabetes mellitus with other specified complication (principal); Z79.4 Long term (current) use of insulin; E03.9 Hypothyroidism, unspecified; I10 Essential (primary) hypertension; E78.00 Pure hypercholesterolemia, unspecified; Z13.9 Encounter for screening, unspecified; E11.65 Type 2 diabetes mellitus with hyperglycemia
CPT/HCPCS: 99214; G2211

== ENCOUNTER → 2023-08-29 13:41 | Outpatient (BNVA) | payer OTHER, SELFPAY | PROVIDERS: PCP Nurse Practitioner Primary Care; Visit Provider Physician Assistant | DX: E11.69 Type 2 diabetes mellitus with other specified complication (principal); E03.9 Hypothyroidism, unspecified; E78.00 Pure hypercholesterolemia, unspecified; I10 Essential (primary) hypertension; Z79.4 Long term (current) use of insulin | CPT/HCPCS: 82947; 83036; 99212 ==

== ENCOUNTER 2023-09-04 13:18 | Emergency (ER) | payer OTHER, SELFPAY ==
--- NOTE | 2023-09-04 | ECG_ITS ---
Test Reason : CHES PAIN Blood Pressure : / mmHG Vent. Rate : 081 BPM Atrial Rate : 081 BPM P-R Int : 230 ms QRS Dur : 094 ms QT Int : 404 ms P-R-T Axes : 045 -45 030 degrees QTc Int : 469 ms Sinus rhythm with 1st degree A-V block Possible Left atrial enlargement Left anterior fascicular block Minimal voltage criteria for LVH, may be normal variant ( Bala product ) Abnormal ECG When compared with ECG of 02-JUN-2023 13:08, SC interval has increased Referred By: Generic ED Physician Electronically Signed By:BEHZAD LOUIE MD
--- NOTE | ~2023-09-04 | CT_ITS ---
EXAMINATION: CT ANGIOGRAM OF THE CHEST WITH AND WITHOUT CONTRAST (CT PULMONARY ANGIOGRAM FOR PE) CLINICAL INFORMATION: Reason for Exam Pleuritic chest pain, shortness of breath R/O PE COMPARISON: CT chest 09/05/2021 TECHNIQUE: Prior to contrast administration, noncontrast localization images were obtained. Subsequently, multidetector volumetric imaging was performed from the thoracic inlet to below the diaphragms following the administration of 65 mL Omnipaque 350 intravenous contrast. No contrast reaction reported Sagittal, coronal, and MIP oblique sagittal reformatted images were obtained on the CT workstation, uploaded to PACS, and reviewed. This CT examination was performed using dose optimization techniques as appropriate, variously including the following: *Automated exposure control *Adjustment of mA and/or kV according to patient size (this includes techniques or standardized protocols for targeted exams where dose is matched to indication/reason for exam; i.e. extremities or head) *Use of iterative reconstruction technique Total exam dose-length product 504 mGy-cm FINDINGS: QUALITY OF STUDY/CONTRAST BOLUS: Satisfactory. PULMONARY ARTERIES: No pulmonary emboli. THORACIC AORTA: No aneurysm. LUNG: No focal consolidation, nodules or masses. PLEURA: No pleural effusion or pneumothorax. MEDIASTINUM: Normal heart size. No pericardial effusion. No hilar or mediastinal lymphadenopathy. No evidence of septal bowing or right heart strain. CORONARY ARTERY CALCIFICATION: None visualized on this study. CHEST WALL/AXILLA: No axillary or internal mammary lymphadenopathy. OSSEOUS STRUCTURES: No acute or suspicious osseous abnormality. UPPER ABDOMEN: Unremarkable. No reflux of contrast into the hepatic veins to suggest elevated right heart pressures. CT/CT angio chest PE protocol IMPRESSION: No acute pulmonary embolus. VTE: negative
[2023-09-04 13:24] VITALS: BP 123/60; BP 145/89; PULSE 84; PULSE 87; RESP 18; TEMP 36.6; O2SAT 91; O2SAT 96; BMI 27.1
[2023-09-04 13:37] VITALS: BP 123/60; PULSE 84; RESP 18; TEMP 36.6; O2SAT 91
--- NOTE | 2023-09-04 14:16 | ED_ITS ---
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 Tomy Glover HPI narrative: 63-year-old female with a history of diabetes mellitus, hypertension, asthma, COPD, depression, PTSD, hypothyroidism, GERD who was seen at the [facility] for intermittent chest pain x3 days. There was a concerned that the patient's chest pain may be caused by a pulmonary embolism and there were EKG changes so she was sent to the emergency department by ambulance. The patient states that she has been having intermittent chest pain x3 days. She states that the pain is brief and will last seconds to minutes. The pain is worse with breathing and with movement. She states she gets multiple episodes in a row. She also feels like her heart is beating fast. She feels lightheaded and dizzy. She states she does feel short of breath at rest and the shortness of breath is worse with exertion. She denied fever but did have chills. She states that she had a cough 2 weeks prior and was treated with antibiotics and prednisone improvement of her cough. Patient had associated nausea but no vomiting. Patient states she has been under increased stress for a multiple reasons. She stated that her son has overdosed at least 3 times in her son's situation has been stressful for her. Related Data Home Medications ?Medication ?Instructions ?Recorded ?Confirmed calcium carbonate 600 mg-vitamin 1 tab PO BID 11/20/19 08/29/23 D3 10 mcg (400 unit) tablet potassium chloride 20 mEq 20 meq PO BID 11/20/19 08/29/23 tablet,extended release(part/cryst) zolpidem 10 mg tablet 10 mg PO BEDTIME PRN Insomnia 11/20/19 08/29/23 clonazepam 1 mg tablet (Klonopin) 1 mg PO DAILY 03/08/20 08/29/23 montelukast 10 mg tablet 10 mg PO BEDTIME 03/08/20 08/29/23 multivitamin-ferrous 1 tab PO DAILY 07/06/21 08/29/23 fumarate-folic acid 18 mg-400 mcg tablet (Certavite-Antioxidant) fluoride (sodium) 1.1 % dental appl PO 10/16/21 08/29/23 cream (SF 5000 Plus) buspirone 7.5 mg tablet 7.5 mg PO BID 01/31/22 08/29/23 tramadol 50 mg tablet 50 mg PO BID PRN Pain 01/31/22 08/29/23 diclofenac sodium 1 % topical gel g topical 05/07/22 08/29/23 acetaminophen 325 mg tablet 325 mg PO PRN pain 06/11/22 08/29/23 amlodipine 10 mg tablet 10 mg PO DAILY 07/09/23 08/29/23 atorvastatin 80 mg tablet 80 mg PO BEDTIME 07/09/23 08/29/23 cetirizine 10 mg tablet 10 mg PO QPM 07/09/23 08/29/23 enalapril maleate 20 mg tablet 20 mg PO DAILY 07/09/23 08/29/23 Previous Rx's ?Medication ?Instructions ?Recorded leg brace (Knee Support Brace) #2 ea 03/08/20 blood-glucose meter (FreeStyle #1 ea 02/28/22 Flash System kit) semaglutide 1 mg/dose (4 mg/3 mL) 1 mg (0.75 mL) subcut QWEEK #3 mL 09/04/22 subcutaneous pen injector (Ozempic) pen needle, diabetic 32 gauge x ##100 10/01/22 (UltiCare Pen Needle) fluticasone 250 mcg-salmeterol 50 1 ea inhalation BID 30 days #60 ea 10/02/22 mcg/dose blistr powdr for inhalation lidocaine 5 % topical patch 1 patch topical DAILY #15 ea 10/20/22 flash glucose sensor (FreeStyle #2 ea 11/28/22 Jalil 2 Sensor kit) miconazole nitrate 4 % (200 mg)-2 1 appful vaginal BEDTIME 3 days 12/25/22 % (9 gram)vaginal,prefill #24 grams appl,cream (Monistat 3) gabapentin 400 mg capsule 400 mg PO BEDTIME #30 caps 01/01/23 dextrose 40 % oral gel (Glutose-15) 15 g PO DIRECTED for 02/04/23 hypoglycemia #112.5 grams hydrocortisone 2.5 % topical cream 1 appl ME BID hemorrhoids #30 grams 02/04/23 with perineal applicator (Proctosol HC) pyridoxine (vitamin B6) 100 mg 100 mg PO DAILY #90 tabs 03/04/23 tablet Lactobacil rhamnosus GG 10 billion 1 cap PO DAILY #30 caps 03/27/23 cell-inulin 200 mg sprinkle capsule ([facility]) levothyroxine 75 mcg tablet 75 mcg PO QAM #90 tabs 04/14/23 docusate sodium 100 mg capsule 100 mg PO BID 30 days #60 caps 04/25/23 omeprazole 20 mg capsule,delayed 20 mg PO BID@0630,1630 #60 caps 04/25/23 release sennosides 8.6 mg tablet (senna) 17.2 mg (2 x 8.6 mg) PO BEDTIME 04/25/23 constipation #60 tabs flash glucose scanning reader #1 ea 05/07/23 (FreeStyle Jalil 2 [place]) blood sugar diagnostic (FreeStyle #100 strips 05/14/23 Lite Strips) lancets 33 gauge (TRUEplus Lancets) #100 ea 05/14/23 omalizumab 150 mg subcutaneous 300 mg subcut Q2W 28 days #4 ea 05/19/23 solution clotrimazole-betamethasone 1 1 appl topical BID itching 7 days 06/12/23 %-0.05 % topical cream #45 grams hydrocodone 5 mg-acetaminophen 325 1 tab PO Q8H PRN pain 7 days #21 06/26/23 mg tablet tabs albuterol sulfate 90 mcg/actuation 2 puff inhalation Q4-6H PRN for 07/10/23 aerosol inhaler (Ventolin HFA) wheezing #18 grams tiotropium bromide 18 mcg capsule 1 cap inhalation DAILY #30 caps 07/10/23 with inhalation device (Spiriva with HandiHaler) amoxicillin 875 mg-potassium 1 tab PO BID #14 tabs 08/20/23 clavulanate 125 mg tablet prednisone 20 mg tablet 40 mg (2 x 20 mg) PO DAILY #10 tabs 08/20/23 ipratropium 20 mcg-albuterol 100 1 puff PO QID #4 grams 08/26/23 mcg/actuation mist for inhalation (Combivent Respimat) Allergies Allergy/AdvReac Type Severity Reaction Status Date / Time aspirin [Aspirin] Allergy Mild ITCHY Verified 07/18/24 13:32 THROAT azithromycin Allergy Unknown Unknown Verified 09/04/23 13:32 naproxen Allergy Unknown Unknown Verified 09/04/23 13:32 simvastatin Allergy Unknown Unknown Verified 09/04/23 13:32 Fish Containing Products Allergy Swelling Verified 09/04/23 13:32 onion [ONION] AdvReac Mild RED FACE Verified 09/04/23 13:32 Review of Systems 2 Review of Systems: Yes all other systems are reviewed and are negative [facility] Past Medical History [facility] Narrative: Social history: She denies tobacco, alcohol and drug use Medical History Preop pulmonary/respiratory exam Well woman exam with routine gynecological exam Renal calculi UTI (urinary tract infection) Allergic rhinitis Anxiety and depression Fibromyalgia HTN (hypertension) PTSD (post-traumatic stress disorder) Vertigo Diabetes Chest pain Spondylosis of cervical region without myelopathy or radiculopathy Bronchitis COPD exacerbation Low vitamin D level Non-toxic multinodular goiter Hypothyroidism DVT (deep venous thrombosis) Cocaine abuse Surgical History History of esophagogastroduodenoscopy (EGD) H/O colonoscopy with polypectomy History of selective injection of anesthetic agent around lumbar nerve root Hx of right breast biopsy History of hysterectomy History of lithotripsy Family History Family History Father No problems noted. 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 Exam: General: Awake, alert in no distress Head: Normocephalic, atraumatic EENT: PERRL, Lids normal, sclera normal, conjunctiva normal, nose normal , ears normal, throat without erythema or exudates Neck: Supple, no adenopathy Lung: breath sounds symmetric, no wheezing, rales or rhonchi Chest: symmetric movement, tenderness with palpation of the patient's costochondral joints bilaterally Heart: regular rate and rhythm, normal S1, S2 no murmurs or rubs Abdomen: soft, non-tender, nondistended, normal bowel sounds Back: no vertebral tenderness, no CVAT Extremities: no deformities, moves all extremities symmetrically Neuro: Awake, alert, oriented, normal speech, cranial nerves intact, moves all extremities symmetrically Psych: Pleasant, cooperative Medications Administered Discontinued Medications Generic Name Dose Route Start Last Admin Trade Name Freq PRN Reason Stop Dose Admin Ketorolac Tromethamine 15 mg 09/04/23 15:03 09/04/23 15:17 Ketorolac Tromethamine 15 Mg/Ml Vial IVPUSH 09/04/23 15:04 15 mg ONCE STA Administration Lorazepam 1 mg 09/04/23 15:03 09/04/23 15:18 Lorazepam 2 Mg/Ml Vial IVPUSH 09/04/23 15:04 1 mg STAT STA Administration Ondansetron HCl 4 mg 09/04/23 15:03 09/04/23 15:18 Ondansetron Hcl 4 Mg/2 Ml Vial IVPUSH 09/04/23 15:04 4 mg ONCE ONE Administration Medical Decision Making Medical Decision Making [facility] Narrative: 63-year-old female with a history of diabetes mellitus, hypertension, asthma, COPD, depression, PTSD, hypothyroidism, GERD who was seen at the [facility] for intermittent chest pain x3 days, seen at [facility] and sent to the emergency department for EKG changes and to rule out pulmonary embolism. Vital signs were normal. Physical examination did reveal tenderness palpation over her costochondral joints. Differential diagnosis: ?Includes but is not limited to myocardial infarction, myocardial ischemia, pulmonary embolism, costochondritis, anemia, electrolyte abnormalities Following evaluation was ordered: CBC, CMP, PTT, D-dimer, troponin, CT pulmonary angiogram PE protocol Patient was initially treated with the following: Toradol 15 mg IV, Zofran 4 mg IV and Ativan 1 mg IV Course: 16:22 My independent interpretation patient's laboratory evaluation is as follows: CBC was normal. D-dimer was elevated at 235. CMP was normal. High sensitive troponin I was below detectable limits. The patient did feel better after the above treatment. Patient's D-dimer is above the 230 limit therefore I did order a CT angiogram PE protocol. At the end of my shift, this study is pending therefore the patient's care was turned over to my colleague, Dr. Jones Admission/Observation Consideration of admission/observation: Escalation of care including admission/observation considered Lab Data MDM Lab Attestation statement: I reviewed the patient's lab results. 09/04/23 14:05 09/04/23 14:05 Labs: Lab Results 09/04/23 09/04/23 Range/Units 14:05 15:08 WBC 6.5 (4.8-10.8) X10*3/uL RBC 4.43 (4.20-5.50) X10*6/uL Hgb 14.2 (12.0-16.0) g/dl Hct 42.5 (37.0-47.0) % MCV 95.9 (80.0-98.0) fL MCH 32.1 (27.0-33.0) pg MCHC 33.4 (31.0-35.0) g/dl RDW 13.2 (11.0-16.0) % Plt Count 257 (160-400) X10*3/uL MPV 9.5 (9.4-12.3) fL Immature Gran % (Auto) 0.2 (0.0-0.4) % Neut % (Auto) 40.4 L (45-73) % Lymph % (Auto) 48.3 H (20-40) % [place] % (Auto) 6.5 (2-11) % Eos % (Auto) 4.0 (0-4) % Baso % (Auto) 0.6 (0-2) % Lymph # (Auto) 3.1 (1.2-4.9) X10*3/uL [place] # (Auto) 0.4 (0.1-1.2) X10*3/uL Eos # (Auto) 0.3 (0.0-0.4) X10*3/uL Baso # (Auto) 0.0 (0.0-0.2) X10*3/uL Abs Immat Gran (auto) 0.01 (0.00-0.03) X10*3/uL Absolute Neuts (auto) 2.6 (2.0-8.3) x10*3/uL Absolute Nucleated RBC 0.000 (0.0-0.012) X10*3/uL Nucleated RBC % (auto) 0.0 (0.0-0.2) /100WBC APTT 31.3 (26.0-36.8) SEC D-Dimer High Sensitivty 235 NG/ML Sodium 145 (135-145) mmol/L Potassium 3.7 (3.3-5.1) mmol/L Chloride 110 H (96-108) mmol/L Carbon Dioxide 27 (22-29) mmol/L Anion Gap 12 (12-20) BUN 14 (9-16) mg/dL Creatinine 0.78 (0.5-1.4) mg/dL Estim Creat Clear Calc 82.3 Estimated GFR > 60 Random Glucose 114 (60-115) mg/dL Calcium 9.4 (8.4-10.2) mg/dL Troponin I High Sens < 2.7 (<3.5-17.0) ng/L Independent Interpretation I performed an independent interpretation of an: EKG Interpretation: My independent interpretation patient's 12 EKG is as follows: Sinus rhythm with a rate of 81, first-degree AV block with a ME interval 230 milliseconds, normal QRS duration, normal QTC interval, no ST segment elevation, no ST segment depression, inverted T-wave in V1 compared to the EKG sent to the emergency department from [facility] there were no significant changes. Independent Historian Clinical information obtained from an independent historian. History obtained from or confirmed by: Other (Son) External Record Review External record reviewed: Inpatient record Chronic Conditions Patient?s care impacted by: Diabetes and Hypertension Discharge Plan Discharge Clinical Impression: Chest pain, pleuritic Patient Disposition: Still a Patient Prescriptions: No Action (DME) blood-glucose meter [FreeStyle Flash System] Kit See Rx Instructions .Route Qty: 1 0RF Rx Instructions: As directed (DME) pen needle, diabetic [UltiCare Pen Needle] 32 gauge x 5/32 needle See Rx Instructions .ROUTE .COMPLEX Qty: 100 5RF Dose Instruction: USE FOUR TIMES DAILY Rx Instructions: USE FOUR TIMES DAILY fluticasone propion-salmeterol 250-50 mcg/dose blister with device 1 ea inhalation BID 30 Days Qty: 60 6RF (DME) FreeStyle Jalil 2 Sensor Kit See Rx Instructions .Route Qty: 2 4RF Rx Instructions: As directed change every 14 days miconazole nitrate [Monistat 3] 4 % (200 mg)- 2 % (9 gram) comb pack,prefill appl, cream 1 appful vaginal BEDTIME 3 Days Qty: 24 0RF gabapentin 400 mg capsule 400 mg PO BEDTIME Qty: 30 4RF hydrocortisone [Proctosol HC] 2.5 % cream with perineal applicator 1 appl ME BID Qty: 30 6RF Rx Instructions: BE SURE TO INCLUDE RECTAL APPICATOR!! pyridoxine (vitamin B6) 100 mg tablet 100 mg PO DAILY Qty: [address] [facility] 10 billion cell -200 mg capsule, sprinkle 1 cap PO DAILY Qty: 30 6RF levothyroxine 75 mcg tablet 75 mcg PO QAM Qty: 90 4RF (DME) FreeStyle Jalil 2 [place] Misc See Rx Instructions .Route Qty: 1 0RF Rx Instructions: As directed (DME) lancets [TRUEplus Lancets] 33 gauge misc See Rx Instructions .ROUTE .COMPLEX Qty: 100 5RF Dose Instruction: USE TEST BLOOD SUGAR FOUR TIMES DAILY Rx Instructions: USE TEST BLOOD SUGAR FOUR TIMES DAILY (DME) FreeStyle Lite Strips Strip See Rx Instructions .ROUTE .COMPLEX Qty: 100 5RF Dose Instruction: USE TEST BLOOD SUGAR FOUR TIMES DAILY Rx Instructions: USE TEST BLOOD SUGAR FOUR TIMES DAILY omalizumab 150 mg recon soln 300 mg subcut Q2W 28 Days Qty: 4 11RF Rx Instructions: requires multiple injection sites; do not exceed 150 mg per injection site albuterol sulfate [Ventolin HFA] 90 mcg/actuation HFA aerosol inhaler 2 puff inhalation Q4-6H PRN (Reason: for wheezing) Qty: 18 6RF Spiriva with HandiHaler 18 mcg capsule, w/inhalation device 1 cap inhalation DAILY Qty: 30 6RF prednisone 20 mg tablet 40 mg PO DAILY Qty: 10 0RF amoxicillin-pot clavulanate 875-125 mg tablet 1 tab PO BID Qty: 14 0RF Combivent Respimat 20-100 mcg/actuation mist 1 puff PO QID Qty: 4 0RF Certavite-Antioxidant 18-400 mg-mcg Tablet 1 tab PO DAILY lidocaine 5 % adhesive patch,medicated 1 patch topical DAILY Qty: 15 0RF Rx Instructions: leave on most painful area for up to 12 hrs atorvastatin 80 mg tablet 80 mg PO BEDTIME cetirizine 10 mg tablet 10 mg PO QPM enalapril maleate 20 mg tablet 20 mg PO DAILY amlodipine 10 mg tablet 10 mg PO DAILY montelukast 10 mg tablet 10 mg PO BEDTIME clonazepam [Klonopin] 1 mg tablet 1 mg PO DAILY Rx Instructions: administer 30 minutes before bedtime (DME) Knee Support Brace Misc See Rx Instructions .ROUTE .MEDSUPPLY Qty: 2 0RF Rx Instructions: As directed zolpidem 10 mg tablet 10 mg PO BEDTIME PRN (Reason: Insomnia) calcium carbonate-vitamin D3 600 mg(1,500mg) -400 unit tablet 1 tab PO BID potassium chloride 20 mEq tablet,ER particles/crystals 20 meq PO BID acetaminophen 325 mg tablet 325 mg PO PRN (Reason: pain) fluoride (sodium) [SF 5000 Plus] 1.1 % cream PO buspirone 7.5 mg tablet 7.5 mg PO BID tramadol 50 mg tablet 50 mg PO BID PRN (Reason: Pain) diclofenac sodium 1 % gel topical Ozempic 1 mg/dose (4 mg/3 mL) pen injector 1 mg subcut QWEEK Qty: 3 4RF dextrose [Glutose-15] 40 % gel 15 g PO DIRECTED Qty: 112.5 5RF hydrocodone-acetaminophen 5-325 mg tablet 1 tab PO Q8H PRN (Reason: pain) 7 Days Qty: 21 0RF Rx Instructions: Partial Fill upon patient request. omeprazole 20 mg capsule,delayed release(DR/EC) 20 mg PO BID@0630,1630 Qty: 60 6RF sennosides [senna] 8.6 mg tablet 17.2 mg PO BEDTIME Qty: 60 6RF docusate sodium 100 mg capsule 100 mg PO BID 30 Days Qty: 60 6RF clotrimazole-betamethasone 1-0.05 % cream 1 appl topical BID 7 Days Qty: 45 0RF Rx Instructions: apply externally a thin coat to the area Print Language: Martiniquais
[2023-09-04 14:17] LABS: MANUAL DIFF FLAG NO
[2023-09-04 14:19] LABS: Basophils Percent Auto 0.6 % (0-2); Eosinophils Absolute Auto 0.3 X10*3/uL (0.0-0.4); Hematocrit 42.5 % (37.0-47.0); Hemoglobin 14.2 g/dl (12.0-16.0); Imm Gran Abs Auto 0.01 X10*3/uL (0.00-0.03); Imm Gran Pct Auto 0.2 % (0.0-0.4); Lymphocytes Absolute Auto 3.1 X10*3/uL (1.2-4.9); Lymphocytes Percent Auto 48.3 % (20-40); Mean Corpuscular HGB Conc 33.4 g/dl (31.0-35.0); Mean Corpuscular Hemoglobin 32.1 pg (27.0-33.0); Mean Corpuscular Volume 95.9 fL (80.0-98.0); Mean Platelet Volume 9.5 fL (9.4-12.3); Monocytes Absolute Auto 0.4 X10*3/uL (0.1-1.2); Monocytes Percent Auto 6.5 % (2-11); Neutrophils Absolute Auto 2.6 x10*3/uL (2.0-8.3); Neutrophils Percent Auto 40.4 % (45-73); Platelet Count 257 X10*3/uL (160-400); Red Blood Count 4.43 X10*6/uL (4.20-5.50); Red Cell Distribution Width 13.2 % (11.0-16.0); White Blood Count 6.5 X10*3/uL (4.8-10.8)
[2023-09-04 14:31] LABS: Anion Gap 12 (12-20); Blood Urea Nitrogen 14 mg/dL (9-16); Calcium 9.4 mg/dL (8.4-10.2); Carbon Dioxide 27 mmol/L (22-29); Chloride 110 mmol/L (96-108); Creatinine Clr Calc Pharmacy 82.3; Estimated Glomerular Filt Rate > 60; Glucose Random 114 mg/dL (60-115); Potassium 3.7 mmol/L (3.3-5.1); Sodium 145 mmol/L (135-145)
[2023-09-04 14:42] LABS: Troponin-I High Sensitivity < 2.7 ng/L (<3.5-17.0)
[2023-09-04] MEDS: Ketorolac Tromethamine 15 MG/ML VIAL IVPUSH (15:17)
[2023-09-04] MEDS: ondansetron HCL 4 MG/2 ML VIAL IVPUSH (15:18)
[2023-09-04] MEDS: LORazepam 2 MG/ML VIAL 1 MG IVPUSH (15:18)
[2023-09-04 15:23] LABS: D Dimer High Sensitivity 235 NG/ML; Partial Thromboplastin Time 31.3 SEC (26.0-36.8)
[2023-09-04 16:21] VITALS: BP 129/81; PULSE 72; RESP 16; TEMP 36.6; O2SAT 94
[2023-09-04] MEDS: iohexoL 350 MG/ML 100 ML INFUS..BTL IV (16:44)
[2023-09-04 17:47] VITALS: BP 129/81; PULSE 72; RESP 16; TEMP 36.6; O2SAT 94
[2023-09-04 21:31] LABS: INTERNATIONAL NORM RATIO 0.9 (0.9-1.1); Prothrombin Time 11.5 SEC (11.1-13.3)
== END 2023-09-04 17:48 | disposition home or self-care (01) ==
PROVIDERS: Emergency Provider Emergency Medicine Emergency Medical Services; PCP Nurse Practitioner Primary Care
DX: M94.0 Chondrocostal junction syndrome [Tietze] (principal); R07.9 Chest pain, unspecified; R07.81 Pleurodynia; I10 Essential (primary) hypertension; J44.9 Chronic obstructive pulmonary disease, unspecified; E11.9 Type 2 diabetes mellitus without complications; E03.9 Hypothyroidism, unspecified; Z79.899 Other long term (current) drug therapy
CPT/HCPCS: 36415; 71275; 80048; 84484; 85025; 85379; 85610; 85730; 93005; 96374; 96375; 99284; 99285; J1885; J2060; J2405; Q9967

== ENCOUNTER → 2023-09-04 14:14 | Outpatient (BNV) | payer OTHER, SELFPAY | PROVIDERS: Emergency Provider Emergency Medicine Emergency Medical Services; PCP Nurse Practitioner Primary Care; Visit Provider Internal Medicine Cardiovascular Disease | DX: R94.31 Abnormal electrocardiogram [ECG] [EKG] (principal) | CPT/HCPCS: 93010 ==

== ENCOUNTER 2023-09-05 07:45 | Outpatient (REF) | payer OTHER, SELFPAY ==
--- NOTE | ~2023-09-05 | CT_ITS ---
EXAMINATION: CT ABDOMEN WITHOUT AND WITH CONTRAST CLINICAL INFORMATION: Personal history of urinary calculi. COMPARISON: None available. TECHNIQUE: Contiguous axial thin section helical images of the abdomen were performed before and after the administration of oral contrast and 85 mL of Omnipaque 350 intravenous contrast. The data set was reformatted in the coronal and sagittal planes and reviewed on an independent workstation. This CT examination was performed using dose optimization techniques as appropriate, variously including the following: *Automated exposure control *Adjustment of mA and/or kV according to patient size (this includes techniques or standardized protocols for targeted exams where dose is matched to indication/reason for exam; i.e. extremities or head) *Use of iterative reconstruction technique DLP: 710 mGy-cm FINDINGS: LUNG BASES: The visualized lung bases are unremarkable. LIVER, GALLBLADDER, AND BILIARY TREE: The liver is normal in size, shape, and attenuation. No focal hepatic lesion or biliary ductal dilatation is present. The gallbladder is unremarkable with no evidence of radiopaque gallstones, gallbladder wall thickening, or obvious pericholecystic inflammatory changes. PANCREAS: Unremarkable. SPLEEN: Unremarkable. ADRENAL GLANDS: Unremarkable. KIDNEYS AND URETERS: Initial imaging without IV contrast shows 2 faint areas of calcification in the left kidney, one in the mid kidney measuring about 4.5 mm and the other punctate measuring 1 mm (3:71 and 85). There are bilateral areas of focal renal cortical scarring present most marked in the right upper pole. Bilateral benign Bosniak class I renal cysts are noted, left greater than right, which require no additional imaging or follow-up. No solid renal masses are seen. No hydronephrosis. GASTROINTESTINAL TRACT: The visualized bowel is unremarkable. ABDOMINAL WALL: A small periumbilical hernia seen containing only fat. There is a lipoma present in the lateral musculature of the abdominal/pelvic wall on the right. LYMPH NODES: No retroperitoneal lymphadenopathy. VASCULAR: There is infrarenal dilatation of the abdominal aorta at 3.1 cm. OSSEOUS STRUCTURES: Degenerative changes are seen predominantly at L4-L5. CT/CT abdomen wo/w IV con IMPRESSION: 1. Nonobstructing left renal calculi. 2. Bilateral renal cortical scarring. 3. Incidental note made of 3.1 cm infrarenal abdominal aortic aneurysm, periumbilical hernia containing only fat and degenerative changes L4-L5. Aortic screening ultrasound is recommended every 3 years. Fleischner guidelines were followed.
[2023-09-05] MEDS: iohexoL 350 MG/ML 100 ML INFUS..BTL 85 ML IV (16:46)
== END 2023-09-05 07:46 | disposition home or self-care (01) ==
LOC: HO.CT 07:45
PROVIDERS: PCP Nurse Practitioner Primary Care; Visit Provider Urology
DX: R93.89 Abnormal findings on diagnostic imaging of other specified body structures (principal); Z87.442 Personal history of urinary calculi
CPT/HCPCS: 74170; Q9967

== ENCOUNTER 2023-09-15 13:42 | Outpatient (AMB) | payer OTHER, SELFPAY ==
--- NOTE | 2023-09-15 13:51 | MHC.OFFVIS ---
Intake Visit Reasons: 7w/CT(pending) Intake Note: Patient presents today for 7w/CT Meds-PYRIDOXINE Allergies to Antibiotic- Azithromycin Blood Thinner- None Motion Designer Required: Yes Motion Designer Language: Continuous Linter Drier Operator Name: Jayleen Dorman Information Interpreted: non-clinical & clinical Accompanied by: Self / Same As Patient Allergies aspirin [Aspirin] Allergy (Mild, Verified 10/12/23 14:12) ITCHY THROAT azithromycin Allergy (Unknown, Verified 10/12/23 14:12) Unknown naproxen Allergy (Unknown, Verified 10/12/23 14:12) Unknown simvastatin Allergy (Unknown, Verified 10/12/23 14:12) Unknown Fish Containing Products Allergy (Verified 10/12/23 14:12) Swelling onion [ONION] Adverse Reaction (Mild, Verified 10/12/23 14:12) RED FACE HPI Comments Details: 09/15/23--Nuvia is here in follow-up. Certified tunnel kiln firer present. The patient completed CT imaging renal mass protocol on 09/05/23. At time of visit the report has not been officially transcribed. I have contacted the radiology department. She states she had UTI symptoms, she was treated with Macrobid which she completed Review of charts: 07/04/2023--Nuvia is a 62-year-old female who presents today via tele-visit for a 9 month follow up on US results. Certified tunnel kiln firer present during telehealth visit. The patient denies irritative voiding symptoms. The patient denies gross hematuria or renal colic symptoms. I have discussed with her that renal ultrasound 06/11/2023 was reviewed and no renal calculi noted. In the right kidney cortical defect at the interpolar region of the right kidney, which is difficult to evaluate as visualization is limited that needs further evaluation. I will order a CT abdomen with and without IV contrast. Review of chart laboratory data: Serum BUN 15, creatinine 0.92. Will continue vitamin B6 100 mg daily. 35 minutes spent in review of records pertaining to this visit and including discussion with the patient and documentation of this visit. 10/03/2022? The patient is a Khmer speaking female. Certified city distribution clerk was present during the visit. She was last seen by me on 04/05/2022 for nephrolithiasis. Recommended to continue monitor with imaging and continue vitamin B6 daily at that time. She has had US of the abdomen done on 09/26/2022. I reviewed the results of the renal US from 09/17/2022 revealed no kidney stones were visualized, no hydronephrosis. She states she is taking vitamin B6 daily. 04/05/2022. nephrolithiasis, Khmer speaker.? Khmer translation provided in office by Certified medical office coordinator I reviewed imaging 02/01/2023 - CT Abd/pelvis - left kidney 2.5 cm exophytic cyst.? 3 mm left renal stone pt asymptomatic. Plan cont to monitor with imaging. Vit B6 100mg. Prior Imaging - 10/08 renal ultrasound no evidence of stones PFSH Medical History Preop pulmonary/respiratory exam Well woman exam with routine gynecological exam Renal calculi UTI (urinary tract infection) Allergic rhinitis Anxiety and depression Fibromyalgia HTN (hypertension) PTSD (post-traumatic stress disorder) Vertigo Diabetes Chest pain Spondylosis of cervical region without myelopathy or radiculopathy Bronchitis COPD exacerbation Low vitamin D level Non-toxic multinodular goiter Hypothyroidism DVT (deep venous thrombosis) Cocaine abuse Surgical History History of esophagogastroduodenoscopy (EGD) H/O colonoscopy with polypectomy History of selective injection of anesthetic agent around lumbar nerve root Hx of right breast biopsy History of hysterectomy History of lithotripsy Family History Father No problems noted. 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 Female Reproductive History Menstrual Age of Menarche: 10 Review of Systems Const All systems reviewed & are unremarkable except as noted in HPI and below Reports no additional complaints Eyes Reports no additional complaints ENT Reports no additional complaints Card Reports no additional complaints Resp Reports no additional complaints GI Reports no additional complaints Reports as per HPI Musc Reports no additional complaints Skin/Breast Reports system reviewed and no additional complaints, except as documented Neuro Reports no additional complaints Psych Reports no additional complaints Endo Reports no additional complaints Bruno/Lymph Reports no additional complaints Aller/Immun Reports no additional complaints Results AMB Urinalysis, Automated UA Leukoctes 125 Rey/uL Last Edit by CECI Simmons on 09/15/23 14:05 UA Nitrite Negative Last Edit by Puja Daniels [facility] [place] on 09/15/23 14:05 UA Urobilinogen 0.2 mg/dL Last Edit by Puja Daniels [facility] [place] on 09/15/23 14:05 UA Protein 15 mg/dL Last Edit by Puja Daniels [facility] [place] on 09/15/23 14:05 UA pH 6.5 Last Edit by Puja Daniels [facility] [place] on 09/15/23 14:05 UA Blood 0 Moses/uL Last Edit by Puja Daniels [facility] [place] on 09/15/23 14:05 UA Specific [place] 1.010 Last Edit by Puja Daniels [facility] [place] on 09/15/23 14:05 UA Ketone Positive Last Edit by Puja Daniels [facility] [place] on 09/15/23 14:05 UA Bilirubin 0 mg/dL Last Edit by Puja Daniels [facility] [place] on 09/15/23 14:05 UA Glucose 0 mg/dL Last Edit by Puja Daniels [facility] [place] on 09/15/23 14:05 Results Reviewed Results Reviewed: Laboratory Last Values Urine pH (Auto) 6.5 09/15/23 14:04 Specific [place] (Auto) 1.010 09/15/23 14:04 Urine Protein (Auto) 15 mg/dL 09/15/23 14:04 Glucose (UA)(Auto) 0 mg/dL 09/15/23 14:04 Urine Ketones (Auto) Positive 09/15/23 14:04 Urine Blood (Auto) 0 Moses/uL 09/15/23 14:04 Urine Nitrite (Auto) Negative 09/15/23 14:04 Urine Bilirubin (Auto) 0 mg/dL 09/15/23 14:04 Urine Urobilinogen (Auto) 0.2 mg/dL 09/15/23 14:04 Leukocyte Esterase (Auto) 125 Rey/uL 09/15/23 14:04 Date of Service: 06/04/23 EXAMINATION: US RETROPERITONEAL LIMITED (RENAL ONLY) CLINICAL INFORMATION: Calculus of kidney. COMPARISON: Ultrasound abdomen complete 05/15/2023 and 09/26/2022. CT abdomen and pelvis 02/01/2022. X-ray abdomen KUB 05/15/2017 and 04/21/2017. TECHNIQUE: Real-time imaging of the kidneys. Technically limited study secondary to body habitus. Limited visualization due to bowel gas. FINDINGS: RIGHT KIDNEY: 10.4 x 3.9 x 5.0 cm (SAG x AP x TRV). No hydronephrosis. No renal calculi. There appears to be a focal cortical defect at the interpolar region of the right kidney, which is difficult to evaluate as visualization is limited due to bowel gas. LEFT KIDNEY: 11.9 x 4.4 x 3.7 cm (SAG x AP x TRV). No hydronephrosis. No renal calculi. Renal cortical thickness is normal. Limited visualization. IMPRESSION: There appears to be a focal cortical defect at the interpolar region of the right kidney, which is difficult to evaluate as visualization is limited due to bowel gas. CT scan with intravenous contrast recommended for further evaluation. Date of Service: 02/01/22 CT ABDOMEN AND PELVIS WITHOUT CONTRAST? CLINICAL INFORMATION: Right low back pain. Right lower quadrant pain. History of kidney stones.? COMPARISON: CT scans dating between April 15, 2021 and October 17, 2010? FINDINGS: LUNG BASES: The lung bases appear clear, with no evidence of inflammation or nodules.? LIVER, GALLBLADDER, AND BILIARY TREE: The liver appears unremarkable in size, shape, and attenuation. No focal hepatic lesion or biliary ductal dilatation is appreciated. Unremarkable appearance of the gallbladder. PANCREAS: Unremarkable? SPLEEN: Unremarkable? ADRENAL GLANDS: Unremarkable? KIDNEYS AND URETERS: Approximately 2.5 cm, exophytic, benign left upper pole simple renal cyst. 3 mm, nonobstructing left lower pole collecting system stone. No stone identified on the right. No evidence of hydronephrosis, hydroureter, or perinephric stranding on either side. BLADDER: Collapsed, therefore suboptimally evaluated. Grossly unremarkable.? GASTROINTESTINAL TRACT: Unremarkable appearance of the stomach and small bowel. Sigmoid and descending colonic diverticulosis without evidence of diverticulitis. Normal-appearing distal ileum and vermiform appendix.? ABDOMINAL WALL: Approximately 10.5 x by 4 cm right lateral abdominal wall lipoma appears unchanged over at least 6 years, therefore benign (image 52, series 3). There is eventration versus widemouth, 2.5 cm umbilical herniation. LYMPH NODES: No evidence of adenopathy by size criteria. VASCULAR: Mild fusiform aneurysmal dilation of the ascending thoracic aorta measuring approximately 4.2 cm in diameter. Mildly atherosclerotic aorta. Mildly ectatic infrarenal abdominal aorta. No aneurysm. PELVIC VISCERA: Status post hysterectomy, unchanged. OSSEOUS STRUCTURES: Unremarkable? IMPRESSION: ? No acute finding.? 4.2 cm ascending thoracic aortic aneurysm. Assessment & Plan Assessment & Plan (1) Kidney stone on left side: Code(s): N20.0 - Calculus of kidney Category: Medical (2) Abnormal ultrasound of kidney: Code(s): R93.429 - Abnormal radiologic findings on diagnostic imaging of unspecified kidney Category: Medical Plan Right kidney, cortical defect vs mass. Orders: Orders AMB Urinalysis Automated 09/15/23 Z13.9 - Encounter for screening, unspecified Patient Instructions: The patient had an opportunity to ask questions regarding treatment plan. The patient expressed understanding and agreement with the above treatment plan. The patient is aware they should contact our office by phone for worsening of their current condition or the appearance of new symptoms. Compliance is encouraged with any medications and followup testing that is ordered. It is a privilege to be allowed the opportunity to participate in the urologic care of your patient. If you have any questions or concerns regarding treatment for the above conditions please do not hesitate to contact me. The office telephone contact is [phone]. This note is constructed in part using voice recognition software. While every effort has been made to ensure accuracy watch electrician errors may have been included. Yours sincerely, Moses Mccoy MD Coding Level of Care Code Est Pt Level 2 (49295) Diagnoses Kidney stone on left side N20.0 Abnormal ultrasound of kidney R93.429
== END 2023-09-15 14:22 | disposition home or self-care (01) ==
PROVIDERS: PCP Nurse Practitioner Primary Care; Visit Provider Urology
DX: N20.0 Calculus of kidney (principal); R93.429 Abnormal radiologic findings on diagnostic imaging of unspecified kidney
CPT/HCPCS: 99212

== ENCOUNTER → 2023-09-15 13:42 | Outpatient (BNVA) | payer OTHER, SELFPAY | PROVIDERS: PCP Nurse Practitioner Primary Care; Visit Provider Urology | DX: N20.0 Calculus of kidney (principal); R93.429 Abnormal radiologic findings on diagnostic imaging of unspecified kidney | CPT/HCPCS: 81003; 99212 ==

== ENCOUNTER 2023-09-26 14:42 | Outpatient (AMB) | payer OTHER, SELFPAY ==
--- NOTE | 2023-09-26 14:42 | A.OFFVIS_ITS ---
Intake Visit Reasons: CT results Intake Note: Nuvia is a 63 year old female who presents as a telehealth today for CT results. Allergies aspirin [Aspirin] Allergy (Mild, Verified 11/12/23 14:02) ITCHY THROAT azithromycin Allergy (Unknown, Verified 11/12/23 14:02) Unknown naproxen Allergy (Unknown, Verified 11/12/23 14:02) Unknown simvastatin Allergy (Unknown, Verified 11/12/23 14:02) Unknown Fish Containing Products Allergy (Verified 11/12/23 14:02) Swelling onion [ONION] Adverse Reaction (Mild, Verified 11/12/23 14:02) RED FACE HPI Comments Details: 09/26/23--Reviewed CT scan results, no evidence of sold renal mass, will continue to monitor kidney stones. Certified probation and patrol agent utiliized. CTAP 09/05/23--Bilateral renal cortical scarring, bilateral renal cysts, benign, left renal calculi, no hydronephrosis. Review of charts: 09/15/23--Nuvia is here in follow-up. Certified probation and patrol agent present. The patient completed CT imaging renal mass protocol on 09/05/23. At time of vi sit the report has not been officially transcribed. I have contacted the radiology department. 07/04/2023--Nuvia is a 62-year-old female who presents today via tele-visit for a 9 month follow up on US results. Certified probation and patrol agent present during telehealth visit. The patient denies irritative voiding symptoms. The patient denies gross hematuria or renal colic symptoms. I have discussed with her that renal ultrasound 06/11/2023 was reviewed and no renal calculi noted. In the right kidney cortical defect at the interpolar region of the right kidney, which is difficult to evaluate as visualization is limited that needs further evaluation. I will order a CT abdomen with and without IV contrast. Review of chart laboratory data: Serum BUN 15, creatinine 0.92. Will continue vitamin B6 100 mg daily. 35 minutes spent in review of records pertaining to this visit and including discussion with the patient and documentation of this visit. 10/03/2022? The patient is a [place] speaking female. Certified process supervisor was present during the visit. She was last seen by me on 04/05/2022 for nephrolithiasis. Recommended to continue monitor with imaging and continue vitamin B6 daily at that time. She has had US of the abdomen done on 09/26/2022. I reviewed the results of the renal US from 09/17/2022 revealed no kidney stones were visualized, no hydronephrosis. She states she is taking vitamin B6 daily. 04/05/2022. nephrolithiasis, North Korean speaker.? North Korean translation provided in office by Certified medical doctor md I reviewed imaging 02/01/2023 - CT Abd/pelvis - left kidney 2.5 cm exophytic cyst.? 3 mm left renal stone pt asymptomatic. Plan cont to monitor with imaging. Vit B6 100mg. Prior Imaging - 10/08 renal ultrasound no evidence of stones PFSH Medical History Preop pulmonary/respiratory exam Well woman exam with routine gynecological exam Renal calculi UTI (urinary tract infection) Allergic rhinitis Anxiety and depression Fibromyalgia HTN (hypertension) PTSD (post-traumatic stress disorder) Vertigo Diabetes Chest pain Spondylosis of cervical region without myelopathy or radiculopathy Bronchitis COPD exacerbation Low vitamin D level Non-toxic multinodular goiter Hypothyroidism DVT (deep venous thrombosis) Cocaine abuse Surgical History History of esophagogastroduodenoscopy (EGD) H/O colonoscopy with polypectomy History of selective injection of anesthetic agent around lumbar nerve root Hx of right breast biopsy History of hysterectomy History of lithotripsy Family History Father No problems noted. 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 Female Reproductive History Menstrual Age of Menarche: 10 Review of Systems Const All systems reviewed & are unremarkable except as noted in HPI and below Reports no additional complaints Eyes Reports no additional complaints ENT Reports no additional complaints Card Reports no additional complaints Resp Reports no additional complaints GI Reports no additional complaints Reports as per HPI Musc Reports no additional complaints Skin/Breast Reports system reviewed and no additional complaints, except as documented Neuro Reports no additional complaints Psych Reports no additional complaints Endo Reports no additional complaints Bruno/Lymph Reports no additional complaints Aller/Immun Reports no additional complaints Telehealth Telehealth Telehealth Platform: Telephone Location of provider rendering services: practice address Location of patient: address on file Patient Identification confirmed using: Name, : Yes Telehealth method: voice only Patient verbally consented to treatment: Yes Patient verbally consented to billing insurance company: Yes Patient informed of any privacy concerns related to visit: Yes Minutes spent on Phone/Video with Pt.: 12 Results Reviewed Results Reviewed: Date of Service: 09/05/23 EXAMINATION: CT ABDOMEN WITHOUT AND WITH CONTRAST CLINICAL INFORMATION: Personal history of urinary calculi. COMPARISON: None available. TECHNIQUE: Contiguous axial thin section helical images of the abdomen were performed before and after the administration of oral contrast and 85 mL of Omnipaque 350 intravenous contrast. The data set was reformatted in the coronal and sagittal planes and reviewed on an independent workstation. This CT examination was performed using dose optimization techniques as appropriate, variously including the following: *Automated exposure control *Adjustment of mA and/or kV according to patient size (this includes techniques or standardized protocols for targeted exams where dose is matched to indication/reason for exam; i.e. extremities or head) *Use of iterative reconstruction technique DLP: 710 mGy-cm FINDINGS: LUNG BASES: The visualized lung bases are unremarkable. LIVER, GALLBLADDER, AND BILIARY TREE: The liver is normal in size, shape, and attenuation. No focal hepatic lesion or biliary ductal dilatation is present. The gallbladder is unremarkable with no evidence of radiopaque gallstones, gallbladder wall thickening, or obvious pericholecystic inflammatory changes. PANCREAS: Unremarkable. SPLEEN: Unremarkable. ADRENAL GLANDS: Unremarkable. KIDNEYS AND URETERS: Initial imaging without IV contrast shows 2 faint areas of calcification in the left kidney, one in the mid kidney measuring about 4.5 mm and the other punctate measuring 1 mm (3:71 and 85). There are bilateral areas of focal renal cortical scarring present most marked in the right upper pole. Bilateral benign Bosniak class I renal cysts are noted, left greater than right, which require no additional imaging or follow-up. No solid renal masses are seen. No hydronephrosis. GASTROINTESTINAL TRACT: The visualized bowel is unremarkable. ABDOMINAL WALL: A small periumbilical hernia seen containing only fat. There is a lipoma present in the lateral musculature of the abdominal/pelvic wall on the right. LYMPH NODES: No retroperitoneal lymphadenopathy. VASCULAR: There is infrarenal dilatation of the abdominal aorta at 3.1 cm. OSSEOUS STRUCTURES: Degenerative changes are seen predominantly at L4-L5. IMPRESSION: 1. Nonobstructing left renal calculi. 2. Bilateral renal cortical scarring. 3. Incidental note made of 3.1 cm infrarenal abdominal aortic aneurysm, periumbilical hernia containing only fat and degenerative changes L4-L5. Aortic screening ultrasound is recommended every 3 years. Date of Service: 06/04/23 EXAMINATION: US RETROPERITONEAL LIMITED (RENAL ONLY) CLINICAL INFORMATION: Calculus of kidney. COMPARISON: Ultrasound abdomen complete 05/15/2023 and 09/26/2022. CT abdomen and pelvis 02/01/2022. X-ray abdomen KUB 05/15/2017 and 04/21/2017. TECHNIQUE: Real-time imaging of the kidneys. Technically limited study secondary to body habitus. Limited visualization due to bowel gas. FINDINGS: RIGHT KIDNEY: 10.4 x 3.9 x 5.0 cm (SAG x AP x TRV). No hydronephrosis. No renal calculi. There appears to be a focal cortical defect at the interpolar region of the right kidney, which is difficult to evaluate as visualization is limited due to bowel gas. LEFT KIDNEY: 11.9 x 4.4 x 3.7 cm (SAG x AP x TRV). No hydronephrosis. No renal calculi. Renal cortical thickness is normal. Limited visualization. IMPRESSION: There appears to be a focal cortical defect at the interpolar region of the right kidney, which is difficult to evaluate as visualization is limited due to bowel gas. CT scan with intravenous contrast recommended for further evaluation. Date of Service: 02/01/22 CT ABDOMEN AND PELVIS WITHOUT CONTRAST? CLINICAL INFORMATION: Right low back pain. Right lower quadrant pain. History of kidney stones.? COMPARISON: CT scans dating between April 15, 2021 and October 17, 2010? FINDINGS: LUNG BASES: The lung bases appear clear, with no evidence of inflammation or nodules.? LIVER, GALLBLADDER, AND BILIARY TREE: The liver appears unremarkable in size, shape, and attenuation. No focal hepatic lesion or biliary ductal dilatation is appreciated. Unremarkable appearance of the gallbladder. PANCREAS: Unremarkable? SPLEEN: Unremarkable? ADRENAL GLANDS: Unremarkable? KIDNEYS AND URETERS: Approximately 2.5 cm, exophytic, benign left upper pole simple renal cyst. 3 mm, nonobstructing left lower pole collecting system stone. No stone identified on the right. No evidence of hydronephrosis, hydroureter, or perinephric stranding on either side. BLADDER: Collapsed, therefore suboptimally evaluated. Grossly unremarkable.? GASTROINTESTINAL TRACT: Unremarkable appearance of the stomach and small bowel. Sigmoid and descending colonic diverticulosis without evidence of diverticulitis. Normal-appearing distal ileum and vermiform appendix.? ABDOMINAL WALL: Approximately 10.5 x by 4 cm right lateral abdominal wall lipoma appears unchanged over at least 6 years, therefore benign (image 52, series 3). There is eventration versus widem[place], 2.5 cm umbilical herniation. LYMPH NODES: No evidence of adenopathy by size criteria. VASCULAR: Mild fusiform aneurysmal dilation of the ascending thoracic aorta measuring approximately 4.2 cm in diameter. Mildly atherosclerotic aorta. Mildly ectatic infrarenal abdominal aorta. No aneurysm. PELVIC VISCERA: Status post hysterectomy, unchanged. OSSEOUS STRUCTURES: Unremarkable? IMPRESSION: ? No acute finding.? 4.2 cm ascending thoracic aortic aneurysm. Assessment & Plan Assessment & Plan (1) Kidney stone on left side: Code(s): N20.0 - Calculus of kidney Category: Medical (2) Bilateral renal cysts: Code(s): N28.1 - Cyst of kidney, acquired Category: Medical Plan Monitor kidney stones. US kidney in 8 months FU post. Orders: Orders US renal BI 8 Months N20.0 - Calculus of kidney Patient Instructions: The patient had an opportunity to ask questions regarding treatment plan. The patient expressed understanding and agreement with the above treatment plan. The patient is aware they should contact our office by phone for worsening of their current condition or the appearance of new symptoms. Compliance is encouraged with any medications and followup testing that is ordered. It is a privilege to be allowed the opportunity to participate in the urologic care of your patient. If you have any questions or concerns regarding treatment for the above conditions please do not hesitate to contact me. The office telephone contact is [phone]. This note is constructed in part using voice recognition software. While every effort has been made to ensure accuracy manufacturing helper errors may have been included. Yours sincerely, Moses Mccoy MD Coding Level of Care Code Tele Est Pt Level 3 (20585) Diagnoses Kidney stone on left side N20.0 Bilateral renal cysts N28.1
== END 2023-09-26 15:23 | disposition home or self-care (01) ==
LOC: HO.HUSH 14:42
PROVIDERS: PCP Nurse Practitioner Primary Care; Visit Provider Urology
DX: N20.0 Calculus of kidney (principal); N28.1 Cyst of kidney, acquired
CPT/HCPCS: 99441

== ENCOUNTER → 2023-09-26 14:42 | Outpatient (BNVA) | payer OTHER, SELFPAY | PROVIDERS: PCP Nurse Practitioner Primary Care; Visit Provider Urology ==

== ENCOUNTER 2023-10-01 13:50 | Outpatient (AMB) | payer OTHER, SELFPAY ==
--- NOTE | 2023-10-01 13:56 | MHC.OFFVIS ---
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 Required: Yes Typesetting 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/Tender Name: Samantha Ledesma C.L.M Allergies aspirin [Aspirin] Allergy (Mild, Verified 10/01/23 14:03) ITCHY THROAT azithromycin Allergy (Unknown, Verified 10/01/23 14:03) Unknown naproxen Allergy (Unknown, Verified 10/01/23 14:03) Unknown simvastatin Allergy (Unknown, Verified 10/01/23 14:03) Unknown Fish Containing Products Allergy (Verified 10/01/23 14:03) Swelling onion [ONION] Adverse Reaction (Mild, Verified 10/01/23 14:03) RED FACE HPI HPI asthma: Details: 63-year-old lady, former 30+ pack-year smoker, quit 2014 followed for severe persistent allergic asthma/COPD overlap syndrome and environmental allergies. She continues on Wixela, Spiriva, albuterol MDI, and Xolair with good symptomatic control. She denies recent exacerbation, though she does state that recently primary care physician put her on a course of prednisone. Currently patient has no wheezing dyspnea or exertion. [facility] Medical History Preop pulmonary/respiratory exam Well woman exam with routine gynecological exam Renal calculi UTI (urinary tract infection) Allergic rhinitis Anxiety and depression Fibromyalgia HTN (hypertension) PTSD (post-traumatic stress disorder) Vertigo Diabetes Chest pain Spondylosis of cervical region without myelopathy or radiculopathy Bronchitis COPD exacerbation Low vitamin D level Non-toxic multinodular goiter Hypothyroidism DVT (deep venous thrombosis) Cocaine abuse Surgical History History of esophagogastroduodenoscopy (EGD) H/O colonoscopy with polypectomy History of selective injection of anesthetic agent around lumbar nerve root Hx of right breast biopsy History of hysterectomy History of lithotripsy Family History Father No problems noted. 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 Female Reproductive History Menstrual Age of Menarche: 10 Review of Systems Const Denies daytime sleepiness, Denies excessive sweating, Denies fatigue, Denies fever(s), Denies lethargy, Denies malaise, Denies night sweats, Denies snoring and Denies weight loss Eyes Denies blurry vision and Denies itchy eyes ENT Denies nasal congestion, Denies post nasal drip, Denies sinus pain, Denies sinus pressure and Denies other ( Thrush) Card Denies chest pain, Denies pedal edema, Denies dyspnea, Denies orthopnea and Denies paroxysmal nocturnal dyspnea Resp Denies cough, Denies hemoptysis, Denies excessive phlegm production, Denies dyspnea, Denies snoring and Denies wheezing GI Denies abdominal pain and Denies heartburn Musc Denies myalgias, Denies arthralgias and Denies joint swelling Skin/Breast Denies rash Neuro Denies memory loss and Denies seizure-like activity Psych Denies abnormal sleep pattern, Denies anxiety and Denies memory loss Endo Denies excessive sweating, Denies fatigue and Denies heat intolerance Bruno/Lymph Denies easy bruising Aller/Immun Denies itchy eyes, Denies seasonal rhinorrhea and Denies wheezing Physical Exam Vital Signs: Last Vital Signs Pulse 81 10/01/23 13:57 BP 128/74 10/01/23 13:57 Pulse Ox 94 10/01/23 13:57 Oxygen Delivery Method Room Air 10/01/23 13:57 BMI result Body Mass Index 36.1 Const General: no acute distress and alert Nutritional Appearance: obese Orientation/consciousness: Other orientation findings ( oriented) HEENT Head: Yes atraumatic Eyes General: appearance normal, both eyes and all related structures Sclerae: sclerae normal EOM: EOMs intact bilaterally Neck Neck: Yes supple Lymphatic: no lymphadenopathy noted Resp Effort & Inspection: normal respiratory effort and no use of accessory muscles Auscultation: clear to auscultation bilaterally Cardio Rate: regular rate Rhythm: regular rhythm Heart sounds: no gallops, no murmurs and no rubs Skin General skin exam: other ( warm) Extrem General: No clubbing, No cyanosis and No edema Assessment & Plan Assessment & Plan (1) Asthma-COPD overlap syndrome: Code(s): J44.89 - Other specified chronic obstructive pulmonary disease Category: Medical Plan: Well controlled on current regimen of Xolair, Advair, Spiriva, Combivent, and albuterol MDI. Continue current regimen. (2) Environmental allergies: Code(s): Z91.09 - Other allergy status, other than to drugs and biological substances Category: Medical Plan: Well controlled on Xolair. Continue current regimen. Coding Level of Care Code Est Pt Level 4 (07042) Diagnoses Asthma-COPD overlap syndrome J44.89 Environmental allergies Z91.09
[2023-10-01 13:57] VITALS: BP 128/74; PULSE 81; O2SAT 94; BMI 36.1
== END 2023-10-01 14:12 | disposition home or self-care (01) ==
PROVIDERS: PCP Nurse Practitioner Primary Care; Visit Provider Internal Medicine Pulmonary Disease
DX: J44.89 Other specified chronic obstructive pulmonary disease (principal); Z91.09 Other allergy status, other than to drugs and biological substances
CPT/HCPCS: 99214

== ENCOUNTER → 2023-10-01 13:50 | Outpatient (BNVA) | payer OTHER, SELFPAY | PROVIDERS: PCP Nurse Practitioner Primary Care; Visit Provider Internal Medicine Pulmonary Disease | DX: J44.89 Other specified chronic obstructive pulmonary disease (principal); Z91.09 Other allergy status, other than to drugs and biological substances; Z79.899 Other long term (current) drug therapy | CPT/HCPCS: 99212 ==

== ENCOUNTER 2023-10-12 14:06 | Emergency (ER) | payer OTHER, SELFPAY ==
--- NOTE | 2023-10-12 | ECG_ITS ---
Test Reason : CP, COVID+ Blood Pressure : / mmHG Vent. Rate : 088 BPM Atrial Rate : 088 BPM P-R Int : 206 ms QRS Dur : 096 ms QT Int : 380 ms P-R-T Axes : 046 -45 030 degrees QTc Int : 459 ms Normal sinus rhythm Left anterior fascicular block Abnormal ECG When compared with ECG of 04-SEP-2023 14:14, No significant change was found Referred By: Generic ED Physician Electronically Signed By:GERARDO VASQUES
--- NOTE | ~2023-10-12 | XR_ITS ---
EXAMINATION: XR CHEST 2 VIEW CLINICAL INFORMATION: Cold, dyspnea COMPARISON: 06/02/2023 TECHNIQUE: PA and lateral views of the chest obtained. FINDINGS: Minimal linear opacity at the left lung base is stable. Otherwise, the lungs are clear. There are no pleural effusions. The cardiomediastinal silhouette is normal. XR/XR chest 2V IMPRESSION: No acute cardiopulmonary disease. Electronically signed by: Tiburcio Zeng MD 10/12/2023 03:15 PM EDT
--- NOTE | 2023-10-12 14:10 | ED.GENADULT ---
HPI - General Adult General Chief complaint: Upper Respiratory Symptoms Stated complaint: Chest tightness/Diff breathing Related Data Home Medications ?Medication ?Instructions ?Recorded ?Confirmed calcium carbonate 600 mg-vitamin 1 tab PO BID 11/20/19 08/29/23 D3 10 mcg (400 unit) tablet potassium chloride 20 mEq 20 meq PO BID 11/20/19 08/29/23 tablet,extended release(part/cryst) zolpidem 10 mg tablet 10 mg PO BEDTIME PRN Insomnia 11/20/19 08/29/23 clonazepam 1 mg tablet (Klonopin) 1 mg PO DAILY 03/08/20 08/29/23 montelukast 10 mg tablet 10 mg PO BEDTIME 03/08/20 08/29/23 multivitamin-ferrous 1 tab PO DAILY 07/06/21 08/29/23 fumarate-folic acid 18 mg-400 mcg tablet (Certavite-Antioxidant) fluoride (sodium) 1.1 % dental appl PO 10/16/21 08/29/23 cream (SF 5000 Plus) buspirone 7.5 mg tablet 7.5 mg PO BID 01/31/22 08/29/23 tramadol 50 mg tablet 50 mg PO BID PRN Pain 01/31/22 08/29/23 diclofenac sodium 1 % topical gel g topical 05/07/22 08/29/23 acetaminophen 325 mg tablet 325 mg PO PRN pain 06/11/22 08/29/23 amlodipine 10 mg tablet 10 mg PO DAILY 07/09/23 08/29/23 atorvastatin 80 mg tablet 80 mg PO BEDTIME 07/09/23 08/29/23 cetirizine 10 mg tablet 10 mg PO QPM 07/09/23 08/29/23 enalapril maleate 20 mg tablet 20 mg PO DAILY 07/09/23 08/29/23 Previous Rx's ?Medication ?Instructions ?Recorded leg brace (Knee Support Brace) #2 ea 03/08/20 blood-glucose meter (FreeStyle #1 ea 02/28/22 Flash System kit) semaglutide 1 mg/dose (4 mg/3 mL) 1 mg (0.75 mL) subcut QWEEK #3 mL 09/04/22 subcutaneous pen injector (Ozempic) pen needle, diabetic 32 gauge x ##100 10/01/22 (UltiCare Pen Needle) fluticasone 250 mcg-salmeterol 50 1 ea inhalation BID 30 days #60 ea 10/02/22 mcg/dose blistr powdr for inhalation lidocaine 5 % topical patch 1 patch topical DAILY #15 ea 10/20/22 flash glucose sensor (FreeStyle #2 ea 11/28/22 Jalil 2 Sensor kit) miconazole nitrate 4 % (200 mg)-2 1 appful vaginal BEDTIME 3 days 12/25/22 % (9 gram)vaginal,prefill #24 grams appl,cream (Monistat 3) gabapentin 400 mg capsule 400 mg PO BEDTIME #30 caps 01/01/23 hydrocortisone 2.5 % topical cream 1 appl [place] BID hemorrhoids #30 grams 02/04/23 with perineal applicator (Proctosol HC) pyridoxine (vitamin B6) 100 mg 100 mg PO DAILY #90 tabs 03/04/23 tablet Lactobacil rhamnosus GG 10 billion 1 cap PO DAILY #30 caps 03/27/23 cell-inulin 200 mg sprinkle capsule ([facility] [facility]) levothyroxine 75 mcg tablet 75 mcg PO QAM #90 tabs 04/14/23 docusate sodium 100 mg capsule 100 mg PO BID 30 days #60 caps 04/25/23 omeprazole 20 mg capsule,delayed 20 mg PO BID@0630,1630 #60 caps 04/25/23 release sennosides 8.6 mg tablet (senna) 17.2 mg (2 x 8.6 mg) PO BEDTIME 04/25/23 constipation #60 tabs flash glucose scanning reader #1 ea 05/07/23 (FreeStyle Jalil 2 [place]) blood sugar diagnostic (FreeStyle #100 strips 05/14/23 Lite Strips) lancets 33 gauge (TRUEplus Lancets) #100 ea 05/14/23 omalizumab 150 mg subcutaneous 300 mg subcut Q2W 28 days #4 ea 05/19/23 solution clotrimazole-betamethasone 1 1 appl topical BID itching 7 days 06/12/23 %-0.05 % topical cream #45 grams hydrocodone 5 mg-acetaminophen 325 1 tab PO Q8H PRN pain 7 days #21 06/26/23 mg tablet tabs albuterol sulfate 90 mcg/actuation 2 puff inhalation Q4-6H PRN for 07/10/23 aerosol inhaler (Ventolin HFA) wheezing #18 grams tiotropium bromide 18 mcg capsule 1 cap inhalation DAILY #30 caps 07/10/23 with inhalation device (Spiriva with HandiHaler) acetaminophen 500 mg tablet 1,000 mg (2 x 500 mg) PO Q6H PRN 09/04/23 (Tylenol Extra Strength) fever or pain #20 tabs ibuprofen 400 mg tablet 400 mg PO TID PRN fever or pain 09/04/23 #30 tabs lorazepam 1 mg tablet (Ativan) 1 mg PO TID PRN anxiety #10 tabs 09/04/23 ipratropium 20 mcg-albuterol 100 1 puff PO QID #4 grams 09/12/23 mcg/actuation mist for inhalation (Combivent Respimat) dextrose 40 % oral gel (Glutose-15) 15 g PO DIRECTED for 10/10/23 hypoglycemia #112.5 grams Allergies Allergy/AdvReac Type Severity Reaction Status Date / Time aspirin [Aspirin] Allergy Mild ITCHY Verified 10/12/23 14:12 THROAT azithromycin Allergy Unknown Unknown Verified 10/12/23 14:12 naproxen Allergy Unknown Unknown Verified 10/12/23 14:12 simvastatin Allergy Unknown Unknown Verified 10/12/23 14:12 Fish Containing Products Allergy Swelling Verified 10/12/23 14:12 onion [ONION] AdvReac Mild RED FACE Verified 10/12/23 14:12 [facility] Past Medical History Medical History Preop pulmonary/respiratory exam Well woman exam with routine gynecological exam Renal calculi UTI (urinary tract infection) Allergic rhinitis Anxiety and depression Fibromyalgia HTN (hypertension) PTSD (post-traumatic stress disorder) Vertigo Diabetes Chest pain Spondylosis of cervical region without myelopathy or radiculopathy Bronchitis COPD exacerbation Low vitamin D level Non-toxic multinodular goiter Hypothyroidism DVT (deep venous thrombosis) Cocaine abuse Surgical History History of esophagogastroduodenoscopy (EGD) H/O colonoscopy with polypectomy History of selective injection of anesthetic agent around lumbar nerve root Hx of right breast biopsy History of hysterectomy History of lithotripsy Family History Family History Father No problems noted. 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 Patient is a 63-year-old female with history of T2DM, asthma-COPD overlap syndrome, HTN, [place], GERD, hypothyroidism presenting with complaint of fever, chills, headaches, shortness of breath and chest pressure since testing positive for Covid on 10/07. Complains of 10/10 chest pain and pressure. Not taking Paxlovid. Patient A+Ox3, respirations even and unlabored, lung sounds CTA throughout, ambulating with steady gait Plan: EKG, labs, CXR Medical Decision Making Lab Data 10/12/23 14:31 10/12/23 14:31 Labs: Lab Results 10/12/23 Range/Units 14:31 WBC 6.2 (4.8-10.8) X10*3/uL RBC 4.34 (4.20-5.50) X10*6/uL Hgb 13.9 (12.0-16.0) g/dl Hct 41.1 (37.0-47.0) % MCV 94.7 (80.0-98.0) fL MCH 32.0 (27.0-33.0) pg MCHC 33.8 (31.0-35.0) g/dl RDW 13.4 (11.0-16.0) % Plt Count 244 (160-400) X10*3/uL MPV 9.2 L (9.4-12.3) fL Immature Gran % (Auto) 0.2 (0.0-0.4) % Neut % (Auto) 36.2 L (45-73) % Lymph % (Auto) 54.3 H (20-40) % [place] % (Auto) 8.0 (2-11) % Eos % (Auto) 1.0 (0-4) % Baso % (Auto) 0.3 (0-2) % Lymph # (Auto) 3.3 (1.2-4.9) X10*3/uL [place] # (Auto) 0.5 (0.1-1.2) X10*3/uL Eos # (Auto) 0.1 (0.0-0.4) X10*3/uL Baso # (Auto) 0.0 (0.0-0.2) X10*3/uL Abs Immat Gran (auto) 0.01 (0.00-0.03) X10*3/uL Absolute Neuts (auto) 2.2 (2.0-8.3) x10*3/uL Absolute Nucleated RBC 0.000 (0.0-0.012) X10*3/uL Nucleated RBC % (auto) 0.0 (0.0-0.2) /100WBC Sodium 143 (135-145) mmol/L Potassium 3.5 (3.3-5.1) mmol/L Chloride 109 H (96-108) mmol/L Carbon Dioxide 24 (22-29) mmol/L Anion Gap 14 (12-20) BUN 15 (9-16) mg/dL Creatinine 0.83 (0.5-1.4) mg/dL Estim Creat Clear Calc 73.4 Estimated GFR > 60 Random Glucose 114 (60-115) mg/dL Calcium 9.1 (8.4-10.2) mg/dL Total Bilirubin 0.4 (0.0-1.0) mg/dL AST 37 H (5-31) U/L ALT 50 H (0-31) U/L Alkaline Phosphatase 98 (39-117) U/L Troponin I High Sens < 2.7 (<3.5-17.0) ng/L Total Protein 7.2 (6.5-8.0) g/dL Albumin 4.0 (3.5-5.0) g/dL Discharge Plan Discharge Clinical Impression: Headache Patient Disposition: Left W/O Completing Treatment Prescriptions: No Action (DME) blood-glucose meter [FreeStyle Flash System] Kit See Rx Instructions .Route Qty: 1 0RF Rx Instructions: As directed (DME) pen needle, diabetic [UltiCare Pen Needle] 32 gauge x 5/32 needle See Rx Instructions .ROUTE .COMPLEX Qty: 100 5RF Dose Instruction: USE FOUR TIMES DAILY Rx Instructions: USE FOUR TIMES DAILY fluticasone propion-salmeterol 250-50 mcg/dose blister with device 1 ea inhalation BID 30 Days Qty: 60 6RF (DME) FreeStyle Jalil 2 Sensor Kit See Rx Instructions .Route Qty: 2 4RF Rx Instructions: As directed change every 14 days miconazole nitrate [Monistat 3] 4 % (200 mg)- 2 % (9 gram) comb pack,prefill appl, cream 1 appful vaginal BEDTIME 3 Days Qty: 24 0RF gabapentin 400 mg capsule 400 mg PO BEDTIME Qty: 30 4RF hydrocortisone [Proctosol HC] 2.5 % cream with perineal applicator 1 appl [place] BID Qty: 30 6RF Rx Instructions: BE SURE TO INCLUDE RECTAL APPICATOR!! pyridoxine (vitamin B6) 100 mg tablet 100 mg PO DAILY Qty: 90 3RF [facility] 10 billion cell -200 mg capsule, sprinkle 1 cap PO DAILY Qty: 30 6RF levothyroxine 75 mcg tablet 75 mcg PO QAM Qty: 90 4RF (DME) FreeStyle Jalil 2 [place] Misc See Rx Instructions .Route Qty: 1 0RF Rx Instructions: As directed (DME) lancets [TRUEplus Lancets] 33 gauge misc See Rx Instructions .ROUTE .COMPLEX Qty: 100 5RF Dose Instruction: USE TEST BLOOD SUGAR FOUR TIMES DAILY Rx Instructions: USE TEST BLOOD SUGAR FOUR TIMES DAILY (DME) FreeStyle Lite Strips Strip See Rx Instructions .ROUTE .COMPLEX Qty: 100 5RF Dose Instruction: USE TEST BLOOD SUGAR FOUR TIMES DAILY Rx Instructions: USE TEST BLOOD SUGAR FOUR TIMES DAILY omalizumab 150 mg recon soln 300 mg subcut Q2W 28 Days Qty: 4 11RF Rx Instructions: requires multiple injection sites; do not exceed 150 mg per injection site albuterol sulfate [Ventolin HFA] 90 mcg/actuation HFA aerosol inhaler 2 puff inhalation Q4-6H PRN (Reason: for wheezing) Qty: 18 6RF Spiriva with HandiHaler 18 mcg capsule, w/inhalation device 1 cap inhalation DAILY Qty: 30 6RF Combivent Respimat 20-100 mcg/actuation mist 1 puff PO QID Qty: 4 3RF dextrose [Glutose-15] 40 % gel 15 g PO DIRECTED Qty: 112.5 5RF Certavite-Antioxidant 18-400 mg-mcg Tablet 1 tab PO DAILY acetaminophen [Tylenol Extra Strength] 500 mg tablet 1,000 mg PO Q6H PRN (Reason: fever or pain) Qty: 20 0RF ibuprofen 400 mg tablet 400 mg PO TID PRN (Reason: fever or pain) Qty: 30 0RF lorazepam [Ativan] 1 mg tablet 1 mg PO TID PRN (Reason: anxiety) Qty: 10 0RF Rx Instructions: Patient may request partial fill lidocaine 5 % adhesive patch,medicated 1 patch topical DAILY Qty: 15 0RF Rx Instructions: leave on most painful area for up to 12 hrs atorvastatin 80 mg tablet 80 mg PO BEDTIME cetirizine 10 mg tablet 10 mg PO QPM enalapril maleate 20 mg tablet 20 mg PO DAILY amlodipine 10 mg tablet 10 mg PO DAILY montelukast 10 mg tablet 10 mg PO BEDTIME clonazepam [Klonopin] 1 mg tablet 1 mg PO DAILY Rx Instructions: administer 30 minutes before bedtime (DME) Knee Support Brace Misc See Rx Instructions .ROUTE .MEDSUPPLY Qty: 2 0RF Rx Instructions: As directed zolpidem 10 mg tablet 10 mg PO BEDTIME PRN (Reason: Insomnia) calcium carbonate-vitamin D3 600 mg(1,500mg) -400 unit tablet 1 tab PO BID potassium chloride 20 mEq tablet,ER particles/crystals 20 meq PO BID acetaminophen 325 mg tablet 325 mg PO PRN (Reason: pain) fluoride (sodium) [SF 5000 Plus] 1.1 % cream PO buspirone 7.5 mg tablet 7.5 mg PO BID tramadol 50 mg tablet 50 mg PO BID PRN (Reason: Pain) diclofenac sodium 1 % gel topical Ozempic 1 mg/dose (4 mg/3 mL) pen injector 1 mg subcut QWEEK Qty: 3 4RF hydrocodone-acetaminophen 5-325 mg tablet 1 tab PO Q8H PRN (Reason: pain) 7 Days Qty: 21 0RF Rx Instructions: Partial Fill upon patient request. omeprazole 20 mg capsule,delayed release(DR/EC) 20 mg PO BID@0630,1630 Qty: 60 6RF sennosides [senna] 8.6 mg tablet 17.2 mg PO BEDTIME Qty: 60 6RF docusate sodium 100 mg capsule 100 mg PO BID 30 Days Qty: 60 6RF clotrimazole-betamethasone 1-0.05 % cream 1 appl topical BID 7 Days Qty: 45 0RF Rx Instructions: apply externally a thin coat to the area Discharge Date/Time: 10/12/23 19:35
[2023-10-12 14:12] VITALS: BP 127/88; PULSE 89; RESP 18; TEMP 36.8; O2SAT 95; BMI 37.3
[2023-10-12 14:35] LABS: MANUAL DIFF FLAG NO
[2023-10-12 14:40] LABS: Basophils Percent Auto 0.3 % (0-2); Eosinophils Absolute Auto 0.1 X10*3/uL (0.0-0.4); Hematocrit 41.1 % (37.0-47.0); Hemoglobin 13.9 g/dl (12.0-16.0); Imm Gran Abs Auto 0.01 X10*3/uL (0.00-0.03); Imm Gran Pct Auto 0.2 % (0.0-0.4); Lymphocytes Absolute Auto 3.3 X10*3/uL (1.2-4.9); Lymphocytes Percent Auto 54.3 % (20-40); Mean Corpuscular HGB Conc 33.8 g/dl (31.0-35.0); Mean Corpuscular Volume 94.7 fL (80.0-98.0); Mean Platelet Volume 9.2 fL (9.4-12.3); Monocytes Absolute Auto 0.5 X10*3/uL (0.1-1.2); Neutrophils Absolute Auto 2.2 x10*3/uL (2.0-8.3); Neutrophils Percent Auto 36.2 % (45-73); Platelet Count 244 X10*3/uL (160-400); Red Blood Count 4.34 X10*6/uL (4.20-5.50); Red Cell Distribution Width 13.4 % (11.0-16.0); White Blood Count 6.2 X10*3/uL (4.8-10.8)
[2023-10-12 14:56] LABS: Alanine Aminotransferase 50 U/L (0-31); Alkaline Phosphatase 98 U/L (39-117); Anion Gap 14 (12-20); Aspartate Amino Transferase 37 U/L (5-31); Bilirubin Total 0.4 mg/dL (0.0-1.0); Blood Urea Nitrogen 15 mg/dL (9-16); Calcium 9.1 mg/dL (8.4-10.2); Carbon Dioxide 24 mmol/L (22-29); Chloride 109 mmol/L (96-108); Creatinine Clr Calc Pharmacy 73.4; Estimated Glomerular Filt Rate > 60; Glucose Random 114 mg/dL (60-115); Potassium 3.5 mmol/L (3.3-5.1); Sodium 143 mmol/L (135-145); Total Protein 7.2 g/dL (6.5-8.0)
[2023-10-12 15:04] LABS: Troponin-I High Sensitivity < 2.7 ng/L (<3.5-17.0)
== END 2023-10-12 19:35 | disposition left against medical advice (07) ==
PROVIDERS: Registered Nurse Emergency; Emergency Provider Emergency Medicine; PCP Nurse Practitioner Primary Care
DX: R07.89 Other chest pain (principal); U07.1 COVID-19; R51.9 Headache, unspecified; R06.02 Shortness of breath; Z79.899 Other long term (current) drug therapy
CPT/HCPCS: 36415; 71046; 80053; 84484; 85025; 93005; 99283

== ENCOUNTER 2023-10-24 11:02 | Outpatient (AMB) | payer OTHER, SELFPAY ==
[2023-10-24 11:32] VITALS: BP 138/83; PULSE 86; BMI 36.6
--- NOTE | 2023-10-24 11:32 | A.OFFVIS_ITS ---
Vital Signs 10/24/23 11:32 Height 5 ft 2 in Weight 200 lb 2.876 oz BMI 36.6 BP 138/83 Blood Pressure Location Rt brachial Position Sitting Pulse 86 Intake Visit Reasons: 6 mnth follow up Intake Note: Nuvia presents to in office 6 months follow up labs and US. CC: Patient reports that she is taking Ozempic injections and is sometimes nauseous. She also states that she d/c the metoclopramide because she did not like the way it was making her feel. Denies other GI concerns. Manager Cardiac Cath Required: Yes Accompanied by: Self / Same As Patient Allergies aspirin [Aspirin] Allergy (Mild, Verified 10/24/23 11:48) ITCHY THROAT azithromycin Allergy (Unknown, Verified 10/24/23 11:48) Unknown naproxen Allergy (Unknown, Verified 10/24/23 11:48) Unknown simvastatin Allergy (Unknown, Verified 10/24/23 11:48) Unknown Fish Containing Products Allergy (Verified 10/24/23 11:48) Swelling onion [ONION] Adverse Reaction (Mild, Verified 10/24/23 11:48) RED FACE HPI HPI 6 mnth follow up: Details: Assessment & Plan (1) Small bowel motility disorder: Code(s): K59.9 - Functional intestinal disorder, unspecified (2) Chronic idiopathic constipation: Code(s): K59.04 - Chronic idiopathic constipation (3) GERD (gastroesophageal reflux disease): Code(s): K21.9 - Gastro-esophageal reflux disease without esophagitis (4) MCCOY (nonalcoholic steatohepatitis): Comment: LABS; 07/2011 LIver panel is totally normal, hemoglobin A1c covers around 7, alpha fetoprotein tumor marker at baseline is 1.6, 05/2018 autoimmune workup is negative, ferritin is normal at 49, she is immune to hepatitis a B and negative for hepatitis C. CURRENT LABS 08/22/22 Plt Count 312 Hgb A1c (Clinic) 7.7 H Total Bilirubin 0.3 AST 27 ALT 31 Alkaline Phosphatase 93 Alpha Fetoprotein 2.1 ULTRASOUND OF THE ABDOMEN 09/27/22? : FINDINGS: PANCREAS: Visualized portions of the pancreas are unremarkable. The pancreatic tail is obscured by bowel gas. ABDOMINAL AORTA: Atherosclerosis of the abdominal aorta. Dilated infrarenal abdominal aorta measuring 2.7 cm in diameter. INFERIOR VENA CAVA: Visualized portions are normal. LIVER: Liver is borderline enlarged measuring 16.5 cm in span decreased from prior previously 19.3 cm.. The liver contour is normal. Increased hepatic echogenicity which can be seen in the setting of hepatic steatosis or underlying liver disease.? No focal hepatic lesion. There is no intrahepatic biliary duct dilatation seen. GALLBLADDER: Normal. The gallbladder is physiologically distended without evidence of stones, sludge, polyps, wall thickening or pericholecystic fluid. COMMON BILE DUCT: Dilated for age measuring 0.9 cm in diameter, not increased in size from prior previously 1.0 cm. RIGHT KIDNEY: Normal. No hydronephrosis. No renal calculi or focal parenchymal lesions. The kidney measures 10.6 cm in maximum dimension. LEFT KIDNEY: Benign-appearing renal cyst measuring 3.3 cm. No follow up imaging is recommended. No hydronephrosis or renal calculi. The kidney measures 11.4 cm in maximum dimension. SPLEEN: Normal. The spleen measures 7.6 cm in maximum dimension. FREE FLUID: None. US/US abdomen complete IMPRESSION: *? Increased hepatic echogenicity which can be seen in the setting of hepatic steatosis or underlying liver disease. Liver is borderline enlarged, decreased from prior. ? *? Dilated infrarenal abdominal aorta measuring 2.7 cm in diameter. Atherosclerosis of the abdominal aorta. Recommend followup every 5 years. Reference: J Am Bull Radiol 2013; 10 (10): 789-794. ? *? Common bile duct is dilated for age measuring 0.9 cm another node increased from prior. No intrahepatic biliary duct dilatation. Consider correlation with LFTs and MRCP if warranted clinicall Code(s): K75.81 - Nonalcoholic steatohepatitis (MCCOY) Plan WOLOF #Tachira Live She has been doing well. She had her dose of Ozempic lowered r/t nausea and CIC. This has been helping her lose weight. She is agreeable to doing more blood work and ultrasound for her MCCOY monitoring. She had one episode of CIC after eating white rice. She has been having knee problems, and will be seeing ortho next week. She continues on her Trulance, senna, Reglan, and omeprazole and is now satisfied with her GI regimen. Return office visit in 6 months Orders: Orders Alpha Fetoprotein 04/25/23 K75.81 - Nonalcoholic steatohepatitis (MCCOY) Comprehensive Met. Panel 04/25/23 K75.81 - Nonalcoholic steatohepatitis (MCCOY) US abdomen complete 04/25/23 K75.81 - Nonalcoholic steatohepatitis (MCCOY) Medications: Refilled plecanatide (Trulance) 3 mg PO DAILY 30 tabs 6RF omeprazole 20 mg PO BID@0630,1630 60 caps 6RF sennosides (senna) 17.2 mg (2 x 8.6 mg) PO BEDTIME 60 tabs 6RF constipation metoclopramide HCl 10 mg PO TID 90 tabs 6RF K59.9 - Functional intestinal disorder, unspecified docusate sodium 100 mg PO BID 30 days 60 caps 6RF K59.04 - Chronic idiopathic constipation Discontinued peg 3350-electrolytes 236-22.74-6.74 -5.86 gram (Golytely) until fecal effluent is clear; do not exceed a total volume of 2,000 mL Discontinued Reason: Doctor's Order 240 mL PO Q10M 1 day 4,000 mL 0RF Z12.11 - Encounter for screening for malignant neoplasm of colon LABS: Laboratory Tests 06/02/23 10/12/23 15:34 14:31 Estimated GFR > 60 Total Bilirubin 0.3 0.4 AST 29 37 H ALT 43 H 50 H Alkaline Phosphatase 98 ULTRASOUND OF THE ABDOMEN 05/20/23 FINDINGS: PANCREAS: Limited visualization of pancreatic tail and head. Imaged portion of pancreatic body is unremarkable. ABDOMINAL AORTA: Atherosclerosis in the distal abdominal aorta with AP diameter of 2.5 cm. INFERIOR VENA CAVA: Visualized portions are normal. LIVER: Hepatomegaly, 16.1 cm. Increased hepatic parenchymal heterogeneity and echogenicity could be associated with hepatocellular disease/hepatic steatosis and substantially limits visualization. Correlation with liver function tests and clinical exam recommended to determine further management. GALLBLADDER: No gallstones. No gallbladder wall thickening. COMMON BILE DUCT: Normal in caliber measuring 0.8 cm in diameter. RIGHT KIDNEY: No hydronephrosis. No renal calculi. Limited visualization. The kidney measures 7.3 cm in maximum dimension. LEFT KIDNEY: 2.7 x 2.5 x 3.3 cm upper pole cyst. There is no indication for additional imaging at this time. No hydronephrosis. No renal calculi. Limited visualization. The kidney measures 10.5 cm in maximum dimension. SPLEEN: Normal. The spleen measures 9.5 cm in maximum dimension. FREE FLUID: None. US/US abdomen complete IMPRESSION: 1. Hepatomegaly, 16.1 cm. Increased hepatic parenchymal heterogeneity and echogenicity could be associated with hepatocellular disease/hepatic steatosis and substantially limits visualization. Correlation with liver function tests and clinical exam recommended to determine further management. 2. Atherosclerosis in the distal abdominal aorta with AP diameter of 2.5 cm. TODAY'S VISIT WOLOF #Lorin Beltran She is doing fairly well, but she feels that the reglan is upsetting her stomach somewhat. There are no severe adverse effects such as tremor or anxiety. Of note, she is also on Ozempic and has very severe and difficult to control CIC. We will 1/2 the 10mg tid reglan to 5mg tid and evaluate if this will help. She continues on her senna, omeprazole, and Trulance. ROV 8 weeks. Mccoy labs reviewed, US ordered. FORMERLY [facility] Medical History Preop pulmonary/respiratory exam Well woman exam with routine gynecological exam Renal calculi UTI (urinary tract infection) Allergic rhinitis Anxiety and depression Fibromyalgia HTN (hypertension) PTSD (post-traumatic stress disorder) Vertigo Diabetes Chest pain Spondylosis of cervical region without myelopathy or radiculopathy Bronchitis COPD exacerbation Low vitamin D level Non-toxic multinodular goiter Hypothyroidism DVT (deep venous thrombosis) Cocaine abuse Surgical History History of esophagogastroduodenoscopy (EGD) H/O colonoscopy with polypectomy History of selective injection of anesthetic agent around lumbar nerve root Hx of right breast biopsy History of hysterectomy History of lithotripsy Family History Father No problems noted. 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 Female Reproductive History Menstrual Age of Menarche: 10 Review of Systems Const Denies fatigue, Denies fever(s), Denies night sweats, Denies poor appetite and Denies weight loss ENT Reports Normal hearing present, Denies dental pain, Denies dysphagia, Denies hearing loss, Denies mouth pain, Denies odynophagia, Denies throat swelling, Denies tongue swelling and Reports other (Dentition adequate) Card Reports no additional complaints Resp Reports no additional complaints GI Details: Denies abdominal pain, Denies melena, Denies bloating, Denies hematochezia, Reports constipation, Denies GI cramping, Denies dysphagia, Denies excessive flatus, Denies early satiety, Reports dyspepsia, Reports heartburn, Denies diarrhea, Denies nausea, Denies odynophagia, Denies vomiting and Denies hematemesis Skin/Breast Denies pruritus, Denies lesions, Denies rash and Denies jaundice Neuro Reports Normal hearing present and Denies Abnormal speech present Endo Denies fatigue Aller/Immun Denies throat swelling and Denies tongue swelling Physical Exam Vital Signs: Last Vital Signs Pulse 86 10/24/23 11:32 BP 138/83 10/24/23 11:32 BMI result Body Mass Index 36.6 Const General: cooperative, no acute distress, well developed and well groomed Nutritional Appearance: well nourished and obese morbidly obese Orientation/consciousness: oriented to person, oriented to place and oriented to time Limitations: language barrier HEENT Head: Yes normocephalic and Yes atraumatic Eyes General: appearance normal, both eyes and all related structures Pupils: Equal, round and reactive pupils present Neck Neck: Yes normal visual inspection and Yes no lymphadenopathy Thyroid: Thyroid normal Resp Effort & Inspection: normal respiratory effort and able to speak in complete sentences Auscultation: clear to auscultation bilaterally Cardio Rate: regular rate Rhythm: regular rhythm Heart sounds: Normal, physiologic split S2 sound present Peripheral pulses: radial pulses present and posterior tibial pulses present GI Inspection: No distended, Yes Abdominal panniculus present and Yes obesity Palpation (GI): Soft to palpation, nontender, no guarding, not rigid and No hepatosplenomegaly present Percussion: Yes normal to percussion Auscultation: normal bowel sounds Rectal Exam - Female: deferred Skin General skin exam: no rashes or lesions noted, turgor normal, skin not dry, no jaundice, No spider nevi and no striae Rashes: no rashes Nails: normal Neuro General: oriented to person, oriented to place and oriented to time Cranial nerves: Yes Equal, round and reactive pupils present and Yes Normal hearing present Speech: No Abnormal speech present Extrem General: Yes normal to inspection, No clubbing, No cyanosis and No edema Psych Appearance: grossly normal and well kempt Mental Status: mental status grossly normal Speech and movement: Normal speech and movement present Affect: normal affect Attitude: cooperative Thought process: Normal thought process present and not confabulating Thought content: Normal thought content present Insight: Limited insight present (Psych) Judgement: Limited judgement present (Psych) Results Reviewed Results Reviewed: Laboratory Tests 06/02/23 10/12/23 15:34 14:31 Estimated GFR > 60 Total Bilirubin 0.3 0.4 AST 29 37 H ALT 43 H 50 H Alkaline Phosphatase 98 ULTRASOUND OF THE ABDOMEN 05/20/23 FINDINGS: PANCREAS: Limited visualization of pancreatic tail and head. Imaged portion of pancreatic body is unremarkable. ABDOMINAL AORTA: Atherosclerosis in the distal abdominal aorta with AP diameter of 2.5 cm. INFERIOR VENA CAVA: Visualized portions are normal. LIVER: Hepatomegaly, 16.1 cm. Increased hepatic parenchymal heterogeneity and echogenicity could be associated with hepatocellular disease/hepatic steatosis and substantially limits visualization. Correlation with liver function tests and clinical exam recommended to determine further management. GALLBLADDER: No gallstones. No gallbladder wall thickening. COMMON BILE DUCT: Normal in caliber measuring 0.8 cm in diameter. RIGHT KIDNEY: No hydronephrosis. No renal calculi. Limited visualization. The kidney measures 7.3 cm in maximum dimension. LEFT KIDNEY: 2.7 x 2.5 x 3.3 cm upper pole cyst. There is no indication for additional imaging at this time. No hydronephrosis. No renal calculi. Limited visualization. The kidney measures 10.5 cm in maximum dimension. SPLEEN: Normal. The spleen measures 9.5 cm in maximum dimension. FREE FLUID: None. US/US abdomen complete IMPRESSION: 1. Hepatomegaly, 16.1 cm. Increased hepatic parenchymal heterogeneity and echogenicity could be associated with hepatocellular disease/hepatic steatosis and substantially limits visualization. Correlation with liver function tests and clinical exam recommended to determine further management. 2. Atherosclerosis in the distal abdominal aorta with AP diameter of 2.5 cm. Assessment & Plan Assessment & Plan (1) Small bowel motility disorder: Code(s): K59.9 - Functional intestinal disorder, unspecified Category: Medical (2) MCCOY (nonalcoholic steatohepatitis): Comment: LABS; 07/2011 LIver panel is totally normal, hemoglobin A1c covers around 7, alpha fetoprotein tumor marker at baseline is 1.6, 05/2018 autoimmune workup is negative, ferritin is normal at 49, she is immune to hepatitis a B and negative for hepatitis C. CURRENT LABS Laboratory Tests 06/02/2407/25/24 15:3414:31 Estimated GFR > 60 Total Bilirubin 0.3 0.4 AST 29 37 H ALT 43 H 50 H Alkaline Phosphatase 98 ULTRASOUND OF THE ABDOMEN 05/20/23 FINDINGS: PANCREAS: Limited visualization of pancreatic tail and head. Imaged portion of pancreatic body is unremarkable. ABDOMINAL AORTA: Atherosclerosis in the distal abdominal aorta with AP diameter of 2.5 cm. INFERIOR VENA CAVA: Visualized portions are normal. LIVER: Hepatomegaly, 16.1 cm. Increased hepatic parenchymal heterogeneity and echogenicity could be associated with hepatocellular disease/hepatic steatosis and substantially limits visualization. Correlation with liver function tests and clinical exam recommended to determine further management. GALLBLADDER: No gallstones. No gallbladder wall thickening. COMMON BILE DUCT: Normal in caliber measuring 0.8 cm in diameter. RIGHT KIDNEY: No hydronephrosis. No renal calculi. Limited visualization. The kidney measures 7.3 cm in maximum dimension. LEFT KIDNEY: 2.7 x 2.5 x 3.3 cm upper pole cyst. There is no indication for additional imaging at this time. No hydronephrosis. No renal calculi. Limited visualization. The kidney measures 10.5 cm in maximum dimension. SPLEEN: Normal. The spleen measures 9.5 cm in maximum dimension. FREE FLUID: None. US/US abdomen complete IMPRESSION: 1. Hepatomegaly, 16.1 cm. Increased hepatic parenchymal heterogeneity and echogenicity could be associated with hepatocellular disease/hepatic steatosis and substantially limits visualization. Correlation with liver function tests and clinical exam recommended to determine further management. 2. Atherosclerosis in the distal abdominal aorta with AP diameter of 2.5 cm. Code(s): K75.81 - Nonalcoholic steatohepatitis (MCCOY) Category: Medical Plan WOLOF #Lorin lIVE She is doing fairly well, but she feels that the reglan is upsetting her stomach somewhat. There are no severe adverse effects such as tremor or anxiety. Of note, she is also on Ozempic and has very severe and difficult to control CIC. We will 1/2 the 10mg tid reglan to 5mg tid and evaluate if this will help. She continues on her senna, omeprazole, and Trulance. ROV 8 weeks. Mccoy labs reviewed, US ordered. Orders: Orders US abdomen complete Today K75.81 - Nonalcoholic steatohepatitis (MCCOY) Medications: New metoclopramide HCl (Reglan) 5 mg PO TID 90 tabs 6RF K59.9 - Functional intestinal disorder, unspecified plecanatide (Trulance) 3 mg PO DAILY 30 tabs 6RF Refilled omeprazole 20 mg PO BID@0630,1630 60 caps 6RF sennosides (senna) 17.2 mg (2 x 8.6 mg) PO BEDTIME 60 tabs 6RF constipation Coding Level of Care Code Est Pt Level 3 (00434) Diagnoses Small bowel motility disorder K59.9 MCCOY (nonalcoholic steatohepatitis) K75.81
== END 2023-10-24 12:50 | disposition home or self-care (01) ==
PROVIDERS: PCP Nurse Practitioner Primary Care; Visit Provider Nurse Practitioner
DX: K59.9 Functional intestinal disorder, unspecified (principal); K75.81 Nonalcoholic steatohepatitis (NASH)
CPT/HCPCS: 99213

== ENCOUNTER → 2023-10-24 11:02 | Outpatient (BNVA) | payer OTHER, SELFPAY | PROVIDERS: PCP Nurse Practitioner Primary Care; Visit Provider Nurse Practitioner | DX: K59.04 Chronic idiopathic constipation (principal); K21.9 Gastro-esophageal reflux disease without esophagitis; K59.9 Functional intestinal disorder, unspecified; K75.81 Nonalcoholic steatohepatitis (NASH) | CPT/HCPCS: 99212 ==

== ENCOUNTER 2023-10-31 10:55 | Emergency (ER) | payer OTHER, SELFPAY ==
--- NOTE | ~2023-10-31 | XR_ITS ---
EXAMINATION: XR RIBS, RIGHT CLINICAL INFORMATION: Right posterior rib pain. COMPARISON: 10/12/2023 TECHNIQUE: 3 views of the right ribs and a PA view of the chest were obtained. FINDINGS: Lungs are clear though mildly hyperexpanded. No consolidation, pneumothorax, or pleural effusion. The cardiomediastinal silhouette and pulmonary vasculature are normal. Osseous structures are unremarkable. Ribs are intact. No fractures are identified. XR/XR ribs RT min 3V w CXR1V IMPRESSION: 1. No acute pulmonary findings. 2. No rib fractures. Electronically signed by: Billy Kennedy MD 10/31/2023 01:02 PM EDT
--- NOTE | ~2023-10-31 | XR_ITS ---
EXAMINATION: XR SHOULDER, RIGHT CLINICAL INFORMATION: Right shoulder pain. COMPARISON: None available. TECHNIQUE: AP external rotation, Grashey, scapular Y, and axillary views of the right shoulder. FINDINGS: There is no fracture. The glenohumeral joint is maintained. No dislocation. There is mild degenerative disease of the acromioclavicular joint. Visualized right lung is clear. Regional soft tissue is normal in appearance. XR/XR shoulder RT min 2V IMPRESSION: No fracture or dislocation. Electronically signed by: Merrill Beck DO 10/31/2023 02:34 PM EDT
--- NOTE | 2023-10-31 11:00 | ECG_ITS ---
Test Reason : CHEST PAIN Blood Pressure : / mmHG Vent. Rate : 082 BPM Atrial Rate : 082 BPM P-R Int : 216 ms QRS Dur : 112 ms QT Int : 388 ms P-R-T Axes : 047 -41 028 degrees QTc Int : 453 ms Sinus rhythm with 1st degree A-V block Left axis deviation Minimal voltage criteria for LVH, may be normal variant ( Bala product ) Abnormal ECG When compared with ECG of 12-OCT-2023 14:20, No significant change was found Referred By: Generic ED Physician Electronically Signed By:GERARDO VASQUES
[2023-10-31 11:16] VITALS: BP 128/68; PULSE 89; RESP 16; TEMP 37; O2SAT 95; BMI 39.7
--- NOTE | 2023-10-31 11:21 | ED.GENADULT ---
HPI - General Adult General Chief complaint: Back Pain/Injury Stated complaint: Chest pain/back pain Time Seen by Provider: 10/31/23 12:14 Source: patient Mode of arrival: ambulatory Limitations: no limitations History of Present Illness ED Provider: Derian Allen PA-C HPI narrative: 63 yold female with pmh of DM, asthma, covid, COPD, bronchitis, osteoarthritis, environmental allergies presents to the ED for right shoulder back pain that is worse on movement. Patient states pain starting after lifting heavy patient. Patient denies any chest pain, shortness of breath, pleurisy, leg swelling, calf pain, coughing up blood. Patient states she recently finished 15 days of COVID and was on steroids. Related Data Home Medications ?Medication ?Instructions ?Recorded ?Confirmed calcium carbonate 600 mg-vitamin 1 tab PO BID 11/20/19 08/29/23 D3 10 mcg (400 unit) tablet potassium chloride 20 mEq 20 meq PO BID 11/20/19 08/29/23 tablet,extended release(part/cryst) zolpidem 10 mg tablet 10 mg PO BEDTIME PRN Insomnia 11/20/19 08/29/23 clonazepam 1 mg tablet (Klonopin) 1 mg PO DAILY 03/08/20 08/29/23 montelukast 10 mg tablet 10 mg PO BEDTIME 03/08/20 08/29/23 multivitamin-ferrous 1 tab PO DAILY 07/06/21 08/29/23 fumarate-folic acid 18 mg-400 mcg tablet (Certavite-Antioxidant) fluoride (sodium) 1.1 % dental appl PO 10/16/21 08/29/23 cream (SF 5000 Plus) buspirone 7.5 mg tablet 7.5 mg PO BID 01/31/22 08/29/23 tramadol 50 mg tablet 50 mg PO BID PRN Pain 01/31/22 08/29/23 diclofenac sodium 1 % topical gel g topical 05/07/22 08/29/23 acetaminophen 325 mg tablet 325 mg PO PRN pain 06/11/22 08/29/23 amlodipine 10 mg tablet 10 mg PO DAILY 07/09/23 08/29/23 atorvastatin 80 mg tablet 80 mg PO BEDTIME 07/09/23 08/29/23 cetirizine 10 mg tablet 10 mg PO QPM 07/09/23 08/29/23 enalapril maleate 20 mg tablet 20 mg PO DAILY 07/09/23 08/29/23 Previous Rx's ?Medication ?Instructions ?Recorded leg brace (Knee Support Brace) #2 ea 03/08/20 blood-glucose meter (FreeStyle #1 ea 02/28/22 Flash System kit) semaglutide 1 mg/dose (4 mg/3 mL) 1 mg (0.75 mL) subcut QWEEK #3 mL 09/04/22 subcutaneous pen injector (Ozempic) pen needle, diabetic 32 gauge x ##100 10/01/22 (UltiCare Pen Needle) fluticasone 250 mcg-salmeterol 50 1 ea inhalation BID 30 days #60 ea 10/02/22 mcg/dose blistr powdr for inhalation lidocaine 5 % topical patch 1 patch topical DAILY #15 ea 10/20/22 flash glucose sensor (FreeStyle #2 ea 11/28/22 Jalil 2 Sensor kit) miconazole nitrate 4 % (200 mg)-2 1 appful vaginal BEDTIME 3 days 12/25/22 % (9 gram)vaginal,prefill #24 grams appl,cream (Monistat 3) gabapentin 400 mg capsule 400 mg PO BEDTIME #30 caps 01/01/23 hydrocortisone 2.5 % topical cream 1 appl CO BID hemorrhoids #30 grams 02/04/23 with perineal applicator (Proctosol HC) pyridoxine (vitamin B6) 100 mg 100 mg PO DAILY #90 tabs 03/04/23 tablet Lactobacil rhamnosus GG 10 billion 1 cap PO DAILY #30 caps 03/27/23 cell-inulin 200 mg sprinkle capsule ([facility]) levothyroxine 75 mcg tablet 75 mcg PO QAM #90 tabs 04/14/23 docusate sodium 100 mg capsule 100 mg PO BID 30 days #60 caps 04/25/23 omalizumab 150 mg subcutaneous 300 mg subcut Q2W 28 days #4 ea 05/19/23 solution clotrimazole-betamethasone 1 1 appl topical BID itching 7 days 06/12/23 %-0.05 % topical cream #45 grams hydrocodone 5 mg-acetaminophen 325 1 tab PO Q8H PRN pain 7 days #21 06/26/23 mg tablet tabs albuterol sulfate 90 mcg/actuation 2 puff inhalation Q4-6H PRN for 07/10/23 aerosol inhaler (Ventolin HFA) wheezing #18 grams tiotropium bromide 18 mcg capsule 1 cap inhalation DAILY #30 caps 07/10/23 with inhalation device (Spiriva with HandiHaler) acetaminophen 500 mg tablet 1,000 mg (2 x 500 mg) PO Q6H PRN 09/04/23 (Tylenol Extra Strength) fever or pain #20 tabs ibuprofen 400 mg tablet 400 mg PO TID PRN fever or pain 09/04/23 #30 tabs lorazepam 1 mg tablet (Ativan) 1 mg PO TID PRN anxiety #10 tabs 09/04/23 ipratropium 20 mcg-albuterol 100 1 puff PO QID #4 grams 09/12/23 mcg/actuation mist for inhalation (Combivent Respimat) dextrose 40 % oral gel (Glutose-15) 15 g PO DIRECTED for 10/10/23 hypoglycemia #112.5 grams blood sugar diagnostic (FreeStyle #100 strips 10/13/23 Lite Strips) lancets 33 gauge (TRUEplus Lancets) #100 ea 10/13/23 flash glucose scanning reader #1 ea 10/16/23 (FreeStyle Jalil 2 [place]) metoclopramide HCl 5 mg tablet 5 mg PO TID #90 tabs 10/24/23 (Reglan) omeprazole 20 mg capsule,delayed 20 mg PO BID@0630,1630 #60 caps 10/24/23 release plecanatide 3 mg tablet (Trulance) 3 mg PO DAILY #30 tabs 10/24/23 sennosides 8.6 mg tablet (senna) 17.2 mg (2 x 8.6 mg) PO BEDTIME 10/24/23 constipation #60 tabs insulin lispro 100 unit/mL 4 unit (0.04 mL) subcut TID 30 10/28/23 subcutaneous pen (Humalog Kw days #15 mL (U-100) Insulin) Allergies Allergy/AdvReac Type Severity Reaction Status Date / Time aspirin [Aspirin] Allergy Mild ITCHY Verified 10/31/23 11:21 THROAT azithromycin Allergy Unknown Unknown Verified 10/31/23 11:21 naproxen Allergy Unknown Unknown Verified 10/31/23 11:21 simvastatin Allergy Unknown Unknown Verified 10/31/23 11:21 Fish Containing Products Allergy Swelling Verified 10/31/23 11:21 onion [ONION] AdvReac Mild RED FACE Verified 10/31/23 11:21 Review of Systems Review of Systems: Right shoulder pain/back pain Yes all other systems are reviewed and are negative [facility] Past Medical History Medical History Preop pulmonary/respiratory exam Well woman exam with routine gynecological exam Renal calculi UTI (urinary tract infection) Allergic rhinitis Anxiety and depression Fibromyalgia HTN (hypertension) PTSD (post-traumatic stress disorder) Vertigo Diabetes Chest pain Spondylosis of cervical region without myelopathy or radiculopathy Bronchitis COPD exacerbation Low vitamin D level Non-toxic multinodular goiter Hypothyroidism DVT (deep venous thrombosis) Cocaine abuse Surgical History History of esophagogastroduodenoscopy (EGD) H/O colonoscopy with polypectomy History of selective injection of anesthetic agent around lumbar nerve root Hx of right breast biopsy History of hysterectomy History of lithotripsy Family History Family History Father No problems noted. 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 Physical Exam ED Vital Signs: Vital Signs - 24 hr 10/31/23 11:16 10/31/23 14:36 Temperature 98.6 F 0 F L Pulse Rate 89 0 L Respiratory Rate 16 0 L Blood Pressure 128/68 00/00 L Pulse Oximetry 95 0 L Oxygen Delivery Method Room Air Room Air BMI result Body Mass Index 39.7 Const General: cooperative, healthy appearing, comfortable, no acute distress, well developed, alert, awake and Physically active Orientation/consciousness: patient oriented x3 HENMT Head: Yes normal to inspection, Yes No palpable skull fracture present, Yes normocephalic and Yes atraumatic Throat: Yes posterior oropharynx normal, Yes tonsils normal and Yes uvula midline Eyes General: appearance normal, both eyes and all related structures Neck Neck: Yes normal visual inspection, Yes full ROM, Yes no lymphadenopathy, Yes no meningeal signs, Yes trachea midline, Yes supple, No anterior neck swelling and No tender Chest Chest palpation & inspection: normal inspection of the chest and normal palpation of entire chest wall Resp Effort & Inspection: normal respiratory effort and able to speak in complete sentences Auscultation: clear to auscultation bilaterally Cardio Jugular venous distension: no JVD Heart sounds: S1 normal heart sound present and S2 normal heart sound present GI Inspection: Yes normal to inspection Palpation (GI): Soft to palpation, not firm, nontender, no guarding and not rigid General: No CVA tenderness and Yes no CVA tenderness Back/Spine/Pelvis Back: no CVA tenderness, No CVA tenderness and No back tenderness Back/spine/pelvis image: 1. Positive for tenderness on palpation. Negative for rash, erythema, crepitus, ecchymosis, or deformity. Negative for spinal tenderness Skin General skin exam: no rashes or lesions noted, elasticity normal and turgor normal Neuro General: patient oriented x3, gait normal, tone normal, moves all extremities, Normal light touch and pain sensation, no meningeal signs, no focal motor deficits, CN's II-XI intact bilaterally and normal sensation to monofilament Extrem General: Yes normal to inspection, Yes full ROM and Yes capillary refill normal Shoulder/upper arm images: 1. Positive for tenderness on palpation and movement. Negative for erythema, swelling, ecchymosis, crepitus, or deformity. Motor/neuro/vascular exam intact. Rest of extremity normal Psych Appearance: grossly normal, well kempt and not disheveled Course Course Course Narrative: This is a Rapid Medical Examination (RME) performed by Arlet Ventura PA-C in triage. Full HPI, ROS, assessment and treatment plan per primary provider in the Main ED. 63 yo bulgarian speaking female w/ hx of DM, HTN, asthma, COPD, depression, PTSD, hypothyroidism, GERD, here for eval of right posterior rib/ upper back pain, worse w/ breathing and moving. unsure if she pulled a muscle. taking tylenol at home without relief. no known trauma/ injury. recent COVID 15 days ago. + speaking in full, complete sentences. no increased work of breathing. lungs clear. Plan: labs, trop, ekg, cxr Medical Decision Making Medical Decision Making [facility] Narrative: 63-year-old female presents to ED for right shoulder pain upper back pain that is worse on movement after lifting heavy patient. Patient denies any chest pain or shortness of breath. Patient denies any pleurisy. Patient denies any leg swelling, calf pain or coughing up blood. Patient denies any recent long travel recent surgery. Not suspecting PE, CHF, myocardial infarction, pneumothorax, or pneumonia. Not suspecting aortic dissection 14:36PM. Patient walked out during evaluation without staff knowing Differential Diagnosis Differential Diagnoses: The differential diagnosis associated with the presentation includes (Shoulder fracture, shoulder dislocation, muscle tear) Admission/Observation Consideration of admission/observation: Escalation of care including admission/observation considered Lab Data [facility] Lab Attestation statement: I reviewed the patient's lab results. 10/31/23 11:29 10/31/23 11:29 Labs: Lab Results 10/31/23 10/31/23 Range/Units 11:29 11:32 WBC 6.2 (4.8-10.8) X10*3/uL RBC 4.23 (4.20-5.50) X10*6/uL Hgb 13.7 (12.0-16.0) g/dl Hct 39.7 (37.0-47.0) % MCV 93.9 (80.0-98.0) fL MCH 32.4 (27.0-33.0) pg MCHC 34.5 (31.0-35.0) g/dl RDW 13.4 (11.0-16.0) % Plt Count 284 (160-400) X10*3/uL MPV 9.3 L (9.4-12.3) fL Immature Gran % (Auto) 0.2 (0.0-0.4) % Neut % (Auto) 44.8 L (45-73) % Lymph % (Auto) 44.4 H (20-40) % [place] % (Auto) 7.4 (2-11) % Eos % (Auto) 2.7 (0-4) % Baso % (Auto) 0.5 (0-2) % Lymph # (Auto) 2.8 (1.2-4.9) X10*3/uL [place] # (Auto) 0.5 (0.1-1.2) X10*3/uL Eos # (Auto) 0.2 (0.0-0.4) X10*3/uL Baso # (Auto) 0.0 (0.0-0.2) X10*3/uL Abs Immat Gran (auto) 0.01 (0.00-0.03) X10*3/uL Absolute Neuts (auto) 2.8 (2.0-8.3) x10*3/uL Absolute Nucleated RBC 0.000 (0.0-0.012) X10*3/uL Nucleated RBC % (auto) 0.0 (0.0-0.2) /100WBC PT 11.1 (11.1-13.3) SEC INR 0.9 (0.9-1.1) Sodium 144 (135-145) mmol/L Potassium 3.7 (3.3-5.1) mmol/L Chloride 112 H (96-108) mmol/L Carbon Dioxide 25 (22-29) mmol/L Anion Gap 11 L (12-20) BUN 17 H (9-16) mg/dL Creatinine 0.86 (0.5-1.4) mg/dL Estim Creat Clear Calc 67.7 Estimated GFR > 60 Random Glucose 122 H (60-115) mg/dL Calcium 9.4 (8.4-10.2) mg/dL Magnesium 2.0 (1.6-2.6) mg/dL Total Bilirubin 0.4 (0.0-1.0) mg/dL AST 71 H (5-31) U/L ALT 99 H (0-31) U/L Alkaline Phosphatase 94 (39-117) U/L Troponin I High Sens < 2.7 (<3.5-17.0) ng/L Total Protein 7.0 (6.5-8.0) g/dL Albumin 3.9 (3.5-5.0) g/dL Urine Color Dark Yellow Urine Appearance Clear Urine pH 6.0 (5.0-9.0) Ur Specific [place] >= 1.030 H (1.005-1.025) Urine Protein Trace (Neg-Trace) mg/dL Urine Glucose (UA) Negative (Negative) mg/dL Urine Ketones Trace (Negative) mg/dL Urine Blood Negative (Negative) Urine Nitrite Negative (Negative) Ur Leukocyte Esterase Negative (Negative) Independent Interpretation I performed an independent interpretation of an: EKG (Sinus rhythm with first-degree AV block. Negative STEMI) and Plain X-Ray Independent Historian Clinical information obtained from an independent historian. History obtained from or confirmed by: Other (Patient) External Record Review External record reviewed: Other (Prior visits) Discharge Plan Discharge Clinical Impression: Back pain Patient Disposition: Left Against Medical Advice Prescriptions: No Action (DME) blood-glucose meter [FreeStyle Flash System] Kit See Rx Instructions .Route Qty: 1 0RF Rx Instructions: As directed (DME) pen needle, diabetic [UltiCare Pen Needle] 32 gauge x 5/32 needle See Rx Instructions .ROUTE .COMPLEX Qty: 100 5RF Dose Instruction: USE FOUR TIMES DAILY Rx Instructions: USE FOUR TIMES DAILY fluticasone propion-salmeterol 250-50 mcg/dose blister with device 1 ea inhalation BID 30 Days Qty: 60 6RF (DME) FreeStyle Jalil 2 Sensor Kit See Rx Instructions .Route Qty: 2 4RF Rx Instructions: As directed change every 14 days miconazole nitrate [Monistat 3] 4 % (200 mg)- 2 % (9 gram) comb pack,prefill appl, cream 1 appful vaginal BEDTIME 3 Days Qty: 24 0RF gabapentin 400 mg capsule 400 mg PO BEDTIME Qty: 30 4RF hydrocortisone [Proctosol HC] 2.5 % cream with perineal applicator 1 appl CO BID Qty: 30 6RF Rx Instructions: BE SURE TO INCLUDE RECTAL APPICATOR!! pyridoxine (vitamin B6) 100 mg tablet 100 mg PO DAILY Qty: 90 3RF [facility] 10 billion cell -200 mg capsule, sprinkle 1 cap PO DAILY Qty: 30 6RF levothyroxine 75 mcg tablet 75 mcg PO QAM Qty: 90 4RF omalizumab 150 mg recon soln 300 mg subcut Q2W 28 Days Qty: 4 11RF Rx Instructions: requires multiple injection sites; do not exceed 150 mg per injection site albuterol sulfate [Ventolin HFA] 90 mcg/actuation HFA aerosol inhaler 2 puff inhalation Q4-6H PRN (Reason: for wheezing) Qty: 18 6RF Spiriva with HandiHaler 18 mcg capsule, w/inhalation device 1 cap inhalation DAILY Qty: 30 6RF Combivent Respimat 20-100 mcg/actuation mist 1 puff PO QID Qty: 4 3RF dextrose [Glutose-15] 40 % gel 15 g PO DIRECTED Qty: 112.5 5RF (DME) lancets [TRUEplus Lancets] 33 gauge misc See Rx Instructions .ROUTE .COMPLEX Qty: 100 5RF Dose Instruction: TEST BLOOD SUGAR FOUR TIMES DAILY Rx Instructions: TEST BLOOD SUGAR FOUR TIMES DAILY (DME) FreeStyle Lite Strips Strip See Rx Instructions .ROUTE .COMPLEX Qty: 100 5RF Dose Instruction: TEST BLOOD SUGAR FOUR TIMES DAILY Rx Instructions: TEST BLOOD SUGAR FOUR TIMES DAILY (DME) FreeStyle Jalil 2 [place] Misc See Rx Instructions .Route Qty: 1 0RF Rx Instructions: As directed insulin lispro [Humalog KwikPen Insulin] 100 unit/mL insulin pen 4 unit subcut TID 30 Days Qty: 15 3RF Rx Instructions: use as directed with meals Certavite-Antioxidant 18-400 mg-mcg Tablet 1 tab PO DAILY acetaminophen [Tylenol Extra Strength] 500 mg tablet 1,000 mg PO Q6H PRN (Reason: fever or pain) Qty: 20 0RF ibuprofen 400 mg tablet 400 mg PO TID PRN (Reason: fever or pain) Qty: 30 0RF lorazepam [Ativan] 1 mg tablet 1 mg PO TID PRN (Reason: anxiety) Qty: 10 0RF Rx Instructions: Patient may request partial fill lidocaine 5 % adhesive patch,medicated 1 patch topical DAILY Qty: 15 0RF Rx Instructions: leave on most painful area for up to 12 hrs atorvastatin 80 mg tablet 80 mg PO BEDTIME cetirizine 10 mg tablet 10 mg PO QPM enalapril maleate 20 mg tablet 20 mg PO DAILY amlodipine 10 mg tablet 10 mg PO DAILY montelukast 10 mg tablet 10 mg PO BEDTIME clonazepam [Klonopin] 1 mg tablet 1 mg PO DAILY Rx Instructions: administer 30 minutes before bedtime (DME) Knee Support Brace Misc See Rx Instructions .ROUTE .MEDSUPPLY Qty: 2 0RF Rx Instructions: As directed zolpidem 10 mg tablet 10 mg PO BEDTIME PRN (Reason: Insomnia) calcium carbonate-vitamin D3 600 mg(1,500mg) -400 unit tablet 1 tab PO BID potassium chloride 20 mEq tablet,ER particles/crystals 20 meq PO BID acetaminophen 325 mg tablet 325 mg PO PRN (Reason: pain) fluoride (sodium) [SF 5000 Plus] 1.1 % cream PO buspirone 7.5 mg tablet 7.5 mg PO BID tramadol 50 mg tablet 50 mg PO BID PRN (Reason: Pain) diclofenac sodium 1 % gel topical Ozempic 1 mg/dose (4 mg/3 mL) pen injector 1 mg subcut QWEEK Qty: 3 4RF metoclopramide HCl [Reglan] 5 mg tablet 5 mg PO TID Qty: 90 6RF omeprazole 20 mg capsule,delayed release(DR/EC) 20 mg PO BID@0630,1630 Qty: 60 6RF Trulance 3 mg tablet 3 mg PO DAILY Qty: 30 6RF sennosides [senna] 8.6 mg tablet 17.2 mg PO BEDTIME Qty: 60 6RF hydrocodone-acetaminophen 5-325 mg tablet 1 tab PO Q8H PRN (Reason: pain) 7 Days Qty: 21 0RF Rx Instructions: Partial Fill upon patient request. docusate sodium 100 mg capsule 100 mg PO BID 30 Days Qty: 60 6RF clotrimazole-betamethasone 1-0.05 % cream 1 appl topical BID 7 Days Qty: 45 0RF Rx Instructions: apply externally a thin coat to the area Interventions: ED Discharge Assessment Last Done: 10/31/23 14:36 Discharge Date/Time: 10/31/23 14:37 Print Language: Luxembourger
[2023-10-31 11:39] LABS: MANUAL DIFF FLAG NO
[2023-10-31 11:40] LABS: Basophils Percent Auto 0.5 % (0-2); Eosinophils Absolute Auto 0.2 X10*3/uL (0.0-0.4); Eosinophils Percent Auto 2.7 % (0-4); Hematocrit 39.7 % (37.0-47.0); Hemoglobin 13.7 g/dl (12.0-16.0); Imm Gran Abs Auto 0.01 X10*3/uL (0.00-0.03); Imm Gran Pct Auto 0.2 % (0.0-0.4); Lymphocytes Absolute Auto 2.8 X10*3/uL (1.2-4.9); Lymphocytes Percent Auto 44.4 % (20-40); Mean Corpuscular HGB Conc 34.5 g/dl (31.0-35.0); Mean Corpuscular Hemoglobin 32.4 pg (27.0-33.0); Mean Corpuscular Volume 93.9 fL (80.0-98.0); Mean Platelet Volume 9.3 fL (9.4-12.3); Monocytes Absolute Auto 0.5 X10*3/uL (0.1-1.2); Monocytes Percent Auto 7.4 % (2-11); Neutrophils Absolute Auto 2.8 x10*3/uL (2.0-8.3); Neutrophils Percent Auto 44.8 % (45-73); Platelet Count 284 X10*3/uL (160-400); Red Blood Count 4.23 X10*6/uL (4.20-5.50); Red Cell Distribution Width 13.4 % (11.0-16.0); White Blood Count 6.2 X10*3/uL (4.8-10.8)
[2023-10-31 11:47] LABS: INTERNATIONAL NORM RATIO 0.9 (0.9-1.1); Prothrombin Time 11.1 SEC (11.1-13.3)
[2023-10-31 11:48] LABS: Appearance Urine Clear; Color Urine Dark Yellow; Glucose Urine UA Negative (Negative); Leukocyte Esterase Urine Negative (Negative); Nitrite Urine Negative (Negative); Specific Gravity - Urine >= 1.030 (1.005-1.025); Urine Blood Negative (Negative); Urine Ketones Trace mg/dL (Negative); Urine Protein Trace mg/dL (Neg-Trace)
[2023-10-31 11:53] LABS: Alanine Aminotransferase 99 U/L (0-31); Albumin Level 3.9 g/dL (3.5-5.0); Alkaline Phosphatase 94 U/L (39-117); Anion Gap 11 (12-20); Aspartate Amino Transferase 71 U/L (5-31); Bilirubin Total 0.4 mg/dL (0.0-1.0); Blood Urea Nitrogen 17 mg/dL (9-16); Calcium 9.4 mg/dL (8.4-10.2); Carbon Dioxide 25 mmol/L (22-29); Chloride 112 mmol/L (96-108); Creatinine Clr Calc Pharmacy 67.7; Estimated Glomerular Filt Rate > 60; Glucose Random 122 mg/dL (60-115); Potassium 3.7 mmol/L (3.3-5.1); Sodium 144 mmol/L (135-145)
[2023-10-31 12:06] LABS: Troponin-I High Sensitivity < 2.7 ng/L (<3.5-17.0)
--- NOTE | 2023-10-31 14:35 | PC.NURSE ---
PT left AMA, Tech tried to stop pt from leaving pt continued walking, provider aware.
[2023-10-31 14:36] VITALS: BP 00/00; PULSE 0; RESP 0; TEMP -17.7; TEMP 0; O2SAT 0
== END 2023-10-31 14:37 | disposition left against medical advice (07) ==
PROVIDERS: Physician Assistant Medical; Emergency Provider Emergency Medicine; PCP Nurse Practitioner Primary Care
DX: M54.9 Dorsalgia, unspecified (principal); M25.511 Pain in right shoulder; I44.0 Atrioventricular block, first degree; E11.9 Type 2 diabetes mellitus without complications; I10 Essential (primary) hypertension; J45.909 Unspecified asthma, uncomplicated; Z86.718 Personal history of other venous thrombosis and embolism; Z79.899 Other long term (current) drug therapy
CPT/HCPCS: 36415; 71101; 73030; 80053; 81003; 83735; 84484; 85025; 85610; 93005; 99283; 99284

== ENCOUNTER 2023-11-05 08:26 | Outpatient (REF) | payer OTHER, SELFPAY ==
--- NOTE | ~2023-11-05 | US_ITS ---
EXAMINATION: US ABDOMEN COMPLETE CLINICAL INFORMATION: Nonalcoholic steatohepatitis. COMPARISON: CT abdomen 09/05/2023. Renal ultrasound 06/04/2023. Ultrasound abdomen complete 05/15/2023. TECHNIQUE: Real-time imaging of the abdominal viscera. FINDINGS: PANCREAS: Visualized portions of the pancreas are unremarkable however portions are obscured by bowel gas limiting evaluation. ABDOMINAL AORTA: Infrarenal abdominal aortic aneurysm appears somewhat under measured on today's exam measuring 2.4 cm, previously 3.[address] INFERIOR VENA CAVA: Visualized portions are normal. LIVER: The liver is normal in size. The liver contour is normal. Mildly increased hepatic echogenicity which can be seen in the setting of hepatic steatosis or underlying liver disease. No focal hepatic lesion. There is no intrahepatic biliary duct dilatation seen. GALLBLADDER: Normal. The gallbladder is physiologically distended without evidence of stones, sludge, polyps, wall thickening or pericholecystic fluid. COMMON BILE DUCT: Normal in caliber measuring 0.5 cm in diameter. RIGHT KIDNEY: Normal. No hydronephrosis. No renal calculi or focal parenchymal lesions. The kidney measures 7.4 cm in maximum dimension. LEFT KIDNEY: No hydronephrosis or renal calculi. The kidney measures 12.1 cm in maximum dimension. SPLEEN: Normal. The spleen measures 6.8 cm in maximum dimension. FREE FLUID: None. US/US abdomen complete IMPRESSION: 1. Mildly increased hepatic echogenicity which can be seen in the setting of hepatic steatosis or underlying liver disease. 2. Infrarenal abdominal aortic aneurysm appears somewhat under measured on today's exam measuring 2.4 cm, previously 3.[address] Recommend continued imaging surveillance as previously recommended. Electronically signed by: Chapis Sanchez MD 11/10/2023 05:09 PM EDT
== END 2023-11-05 08:27 | disposition home or self-care (01) ==
LOC: HO.US 08:26
PROVIDERS: PCP Nurse Practitioner Primary Care; Visit Provider Nurse Practitioner
DX: K75.81 Nonalcoholic steatohepatitis (NASH) (principal)
CPT/HCPCS: 76700

== ENCOUNTER 2023-11-12 09:03 | Outpatient (REF) | payer OTHER, SELFPAY ==
--- NOTE | ~2023-11-12 | XR_ITS ---
EXAMINATION: XR HAND, LEFT CLINICAL INFORMATION: Left hand/thumb pain. COMPARISON: Left hand radiographs dated 11/11/2022. TECHNIQUE: PA, lateral, and oblique views of the left hand. FINDINGS: No acute fracture or dislocation. Moderate joint space narrowing with marginal osteophytes at the first carpometacarpal joint, progressed when compared to the prior examination. No osseous erosion. No abnormal soft tissue calcification. XR/XR hand LT min 3V IMPRESSION: Moderate first carpometacarpal osteoarthritis, progressed when compared to the prior examination. Electronically signed by: Albert Hayes MD 11/12/2023 12:05 PM EDT
== END 2023-11-12 09:04 | disposition home or self-care (01) ==
LOC: HO.HOSX 09:03
PROVIDERS: PCP Nurse Practitioner Primary Care
DX: M79.642 Pain in left hand (principal); M65.312 Trigger thumb, left thumb
CPT/HCPCS: 73130; 99202

== ENCOUNTER 2023-11-12 13:47 | Outpatient (AMB) | payer OTHER, SELFPAY ==
--- NOTE | 2023-11-12 13:58 | A.OFFVIS_ITS ---
Vital Signs 11/12/23 14:03 Weight 201 lb Handedness Right Intake Visit Reasons: New prob- Left thumb chronic pain Intake Note: Nuvia is a 63 year old right hand dominant female who presents today for a new problem visit with complaints of left thumb pain. Patient reports pain at the base of her thumb. Date of injury is unknown, she lifted something heavy and that is when she noticed she hurt her left thumb. When she moves her thumb around she reports it is painful. She reports occasionally she feels her thumb stays stuck and she rubs it to try and alleviate that. She is unable to take Motrin so she takes Tylenol which provides some relief. Patient has hx of DM. Information Services Assistant Required: Yes Information Services Assistant Language: Demolition Crane Operator Name: [id number] Allergies aspirin [Aspirin] Allergy (Mild, Verified 11/12/23 14:02) ITCHY THROAT azithromycin Allergy (Unknown, Verified 11/12/23 14:02) Unknown naproxen Allergy (Unknown, Verified 11/12/23 14:02) Unknown simvastatin Allergy (Unknown, Verified 11/12/23 14:02) Unknown Fish Containing Products Allergy (Verified 11/12/23 14:02) Swelling onion [ONION] Adverse Reaction (Mild, Verified 11/12/23 14:02) RED FACE HPI HPI New prob- Left thumb chronic pain: Details: Patient is a 63-year-old female who presents for evaluation of left thumb pain, locking, and catching, ongoing for many years. The patient states that this pain is primarily located at the level of the A1 amalia of the left thumb, and then she feels her thumb is getting stuck when she flexes it. The patient does report that she does have a history of steroid injections, but she was advised to avoid them by vascular surgery, as they caused swelling and a thrombus in her legs. Patient denies numbness or tingling in the left hand. No other acute complaints or concerns at this time. [facility] Medical History Preop pulmonary/respiratory exam Well woman exam with routine gynecological exam Renal calculi UTI (urinary tract infection) Allergic rhinitis Anxiety and depression Fibromyalgia HTN (hypertension) PTSD (post-traumatic stress disorder) Vertigo Diabetes Chest pain Spondylosis of cervical region without myelopathy or radiculopathy Bronchitis COPD exacerbation Low vitamin D level Non-toxic multinodular goiter Hypothyroidism DVT (deep venous thrombosis) Cocaine abuse Surgical History History of esophagogastroduodenoscopy (EGD) H/O colonoscopy with polypectomy History of selective injection of anesthetic agent around lumbar nerve root Hx of right breast biopsy History of hysterectomy History of lithotripsy Family History Father No problems noted. 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 Neuro: Median, ulnar, radial nerves motor and sensory intact and sensation is normal to the tips of all digits. Vascular: Cap refill brisk ROM: Patient can make a fist and extend all the digits Visible and palpable locking and catching of the left thumb Tender over the A1 amalia of the left thumb Skin: No lacerations or abrasions. General: No ecchymosis, erythema, or evidence of infection. Psych: Appears grossly normal Affect normal Attitude cooperative Assessment & Plan Assessment & Plan (1) Trigger finger of left thumb: Code(s): M65.312 - Trigger thumb, left thumb Category: Medical Plan 1. Trigger thumb, left Ongoing for many years I educated the patient about the condition. I discussed both operative and nonoperative treatment options. The patient would like to proceed with surgery. The patient states she would like to avoid steroid injections if possible, due to the history of blood clots induced by them. The risks and benefits of operative treatment were discussed with the patient and the patient wishes to proceed with surgery. These risks include, but are not limited to, risk of damage to blood vessels, nerves, tendons, infection, recurrence, incomplete relief of preoperative symptoms, persistent pain, possible need for further surgery, and the risks associated with regional blocks and/or anesthesia. Plan is to take the patient to the operating room at some point in the next few weeks for the following procedures: 1. Left trigger thumb release under local anesthesia All of the preoperative paperwork including the consent was discussed today. All of the patient's questions were answered in the clinic today. The patient understands that they will be in contact with our hand frame surgical elastic knitter to discuss scheduling their procedure. Patient reports diabetes, last A1c 6.9. Of note, the patient reports that she takes Ozempic, and is told that she will have to discontinue use of this for at least 1 week prior to surgery. Denies blood thinners, asthma, heart issues, lung issues, kidney issues, or current smoking. Orders: Orders XR hand LT min 3V Today M79.642 - Pain in left hand Coding Level of Care Code New Pt Level 4 (20903) Diagnoses Trigger finger of left thumb M65.312
== END 2023-11-12 15:19 | disposition home or self-care (01) ==
PROVIDERS: PCP Nurse Practitioner Primary Care
DX: M65.312 Trigger thumb, left thumb (principal)
CPT/HCPCS: 99204

== ENCOUNTER 2023-11-28 13:11 | Outpatient (AMB) | payer OTHER, SELFPAY ==
[2023-11-28 13:16] VITALS: BP 120/80; PULSE 83
--- NOTE | 2023-11-28 13:16 | A.OFFVIS_ITS ---
Vital Signs 11/28/23 13:16 Weight 203 lb 7.787 oz BP 120/80 Blood Pressure Location Rt brachial Position Sitting Pulse 83 Pulse Source Pulse Oximeter Intake Visit Reasons: T2DM Intake Note: Patient presents today for D2MT follow up visit. Last Diabetic Eye exam: 2022 Last Podiatry Visit: Doesn't have one Random Glucose: 179 mg/dl HgA1c: 7.1% Under Trimmer Required: Yes Under Trimmer Language: Delinquency Prevention Social Worker Services: Under Trimmer Present Under Trimmer Name: Lucas [id number] Information Interpreted: non-clinical & clinical Accompanied by: Self / Same As Patient Allergies aspirin [Aspirin] Allergy (Mild, Verified 11/28/23 13:21) ITCHY THROAT azithromycin Allergy (Unknown, Verified 11/28/23 13:21) Unknown naproxen Allergy (Unknown, Verified 11/28/23 13:21) Unknown simvastatin Allergy (Unknown, Verified 11/28/23 13:21) Unknown Fish Containing Products Allergy (Verified 11/28/23 13:21) Swelling onion [ONION] Adverse Reaction (Mild, Verified 11/28/23 13:21) RED FACE Medication List - Last Reconciled 11/28/23 by Tereza Antunez PA-C acetaminophen (Tylenol Extra Strength) 1,000 mg (2 x 500 mg) PO Q6H PRN acetaminophen 325 mg PO PRN albuterol sulfate 90 mcg/actuation (Ventolin HFA) 2 puffs inhalation Q4-6H PRN amlodipine 10 mg PO DAILY amoxicillin-pot clavulanate 875-125 mg 1 tab PO BID atorvastatin 80 mg PO BEDTIME blood sugar diagnostic (FreeStyle Lite Strips) TEST BLOOD SUGAR FOUR TIMES DAILY blood-glucose meter (FreeStyle Flash System kit) As directed buspirone 7.5 mg PO BID calcium carbonate-vitamin D3 600 mg-10 mcg (400 unit) 1 tab PO BID cetirizine 10 mg PO QPM clonazepam (Klonopin) 1 mg PO DAILY clotrimazole-betamethasone 1-0.05 % 1 appl topical BID 7 days dextrose 40% (Glutose-15) 15 grams PO DIRECTED diclofenac sodium 1% grams topical docusate sodium (Stool Softener) 100 mg PO BID enalapril maleate 20 mg PO DAILY flash glucose scanning reader (Care.comStyle Jalil 2 [place]) As directed flash glucose sensor (FreeStyle Jalil 2 Sensor kit) As directed change every 14 days fluoride (sodium) 1.1% (SF 5000 Plus) appl PO fluticasone propion-salmeterol 250-50 mcg/dose 1 ea inhalation BID 30 days gabapentin 400 mg PO BEDTIME hydrocodone-acetaminophen 5-325 mg 1 tab PO Q8H PRN 7 days hydrocortisone 2.5% (Proctosol HC) 1 appl IA BID ibuprofen 400 mg PO TID PRN insulin lispro (Humalog KwikPen (U-100) Insulin) 4 units (0.04 mL) subcut TID 30 days ipratropium-albuterol 20-100 mcg/actuation (Combivent Respimat) 1 puff PO QID Lactobac. rhamnosus GG-inulin 10 billion cell -200 mg ([facility] [place]) 1 cap PO DAILY lancets (TRUEplus Lancets) TEST BLOOD SUGAR FOUR TIMES DAILY leg brace (Knee Support Brace) As directed levothyroxine 75 mcg PO QAM lidocaine 5% 1 patch topical DAILY lorazepam (Ativan) 1 mg PO TID PRN magnesium citrate 150 mL PO DAILY metoclopramide HCl (Reglan) 5 mg PO TID miconazole nitrate (Monistat 3) 1 appful vaginal BEDTIME 3 days montelukast 10 mg PO BEDTIME tiibgdgwvcef-rzol-tmxcy acid 18-400 mg-mcg (Certavite-Antioxidant) 1 tab PO DAILY omalizumab 300 mg subcut Q2W 28 days omeprazole 20 mg PO BID pen needle, diabetic (UltiCare Pen Needle) USE FOUR TIMES DAILY plecanatide (Trulance) 3 mg PO DAILY potassium chloride ER 20 mEq PO BID prednisone 40 mg (2 x 20 mg) PO DAILY pyridoxine (vitamin B6) 100 mg PO DAILY semaglutide (Ozempic) 1 mg (0.75 mL) subcut QWEEK sennosides (senna) 17.2 mg (2 x 8.6 mg) PO BEDTIME tiotropium bromide (Spiriva with HandiHaler) 1 cap inhalation DAILY tramadol 50 mg PO BID PRN zolpidem 10 mg PO BEDTIME PRN HPI HPI T2DM: Details: Patient is a 63-year-old female with a significant past medical history of asthma, COPD, osteoarthritis, kidney stones, hypertension, hyperlipidemia, type 2 diabetes, fatty liver, hypothyroidism, depression, anxiety who presents today for a follow-up regarding her diabetes. Under Trimmer: phone used Kurt #[id number] DM-A1c today in office is 7.1 Her CGM download shows usage 92% at the time, average blood sugar 125, 6.4, 18% variability. In range 97% of the time, 3% high. Denies any hypoglycemic events. She is currently managed with Ozempic 1 mg and Humalog if needed. She states that she only takes the Humalog when she is put on prednisone for her COPD. CV: Blood pressure today in the office is 120/80. She is on amlodipine 10 mg. Not on an Michael or an Arb. Cholesterol is controlled with atorvastatin 80 mg. [facility] Medical History Preop pulmonary/respiratory exam Well woman exam with routine gynecological exam Renal calculi UTI (urinary tract infection) Allergic rhinitis Anxiety and depression Fibromyalgia HTN (hypertension) PTSD (post-traumatic stress disorder) Vertigo Diabetes Chest pain Spondylosis of cervical region without myelopathy or radiculopathy Bronchitis COPD exacerbation Low vitamin D level Non-toxic multinodular goiter Hypothyroidism DVT (deep venous thrombosis) Cocaine abuse Surgical History History of esophagogastroduodenoscopy (EGD) H/O colonoscopy with polypectomy History of selective injection of anesthetic agent around lumbar nerve root Hx of right breast biopsy History of hysterectomy History of lithotripsy Family History Father No problems noted. 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 Female Reproductive History Menstrual Age of Menarche: 10 Physical Exam Vital Signs: Last Vital Signs Pulse 83 11/28/23 13:16 BP 120/80 11/28/23 13:16 Const Orientation/consciousness: patient oriented x3 Neck Neck: Yes no lymphadenopathy Thyroid: Thyroid normal Carotids: no bruits Resp Auscultation: clear to auscultation bilaterally Cardio Rate: regular rate Rhythm: regular rhythm Heart sounds: S1 normal heart sound present and S2 normal heart sound present Peripheral pulses: dorsalis pedis present Neuro General: patient oriented x3, gait normal and no focal motor deficits Extrem Other: Monofilament sensation intact bilaterally. Vibratory sensation intact bilaterally. Skin intact. General: Yes normal to inspection Results AMB Hemoglobin A1c AMB Hemoglobin A1c 7.1 % Last Edit by LIZET Britton on 11/28/23 13:33 Results Reviewed Results Reviewed: Laboratory Last Values Glucose (Clinic) 179 mg/dL (60-115) H 11/28/23 13:24 Hgb A1c (Clinic) 7.1 % (4.0-6.0) H 11/28/23 13:28 Laboratory Tests 10/31/23 11:29 Sodium 144 Potassium 3.7 Chloride 112 H Carbon Dioxide 25 Anion Gap 11 L BUN 17 H Creatinine 0.86 Estim Creat Clear Calc 67.7 Estimated GFR > 60 Assessment & Plan Assessment & Plan (1) Type 2 diabetes mellitus with hyperglycemia: Code(s): E11.65 - Type 2 diabetes mellitus with hyperglycemia Category: Medical Qualifiers: Diabetes mellitus tank terminal gauger insulin use: without group home use Qualified Code(s): E11.65 - Type 2 diabetes mellitus with hyperglycemia Plan: We will increase the Ozempic as she has gained a couple lb and her A1c did go slightly from her previous visit. She was educated on diet and exercise. She has been walking a lot and trying hard with her lifestyle modifications. I have referred her to podiatry per her request. (2) Hypertension: Code(s): I10 - Essential (primary) hypertension Category: Medical Qualifiers: Hypertension type: primary hypertension Qualified Code(s): I10 - Essential (primary) hypertension Plan: WNL. Continue current regimen (3) High cholesterol: Code(s): E78.00 - Pure hypercholesterolemia, unspecified Category: Medical Plan: As above. We will recheck prior to next appointment. Orders: Orders AMB Hemoglobin A1c Today E11.69 - Type 2 diabetes mellitus with other specified complication, Z13.9 - Encounter for screening, unspecified, Z79.4 - half-way (current) use of insulin Referrals Podiatry Referral E11.65 - Type 2 diabetes mellitus with hyperglycemia Medications: New semaglutide (Ozempic) 2 mg (0.75 mL) subcut QWEEK 3 mL 5RF Refilled flash glucose sensor (FreeStyle Jalil 2 Sensor kit) As directed change every 14 days 2 ea 4RF Discontinued semaglutide (Ozempic) Discontinued Reason: Doctor's Order 1 mg (0.75 mL) subcut QWEEK 3 mL 4RF Coding Level of Care Code Est Pt Level 4 (92909) Diagnoses Type 2 diabetes mellitus with hyperglycemia, without long-term current use of insulin E11.65 Diabetes mellitus tank terminal gauger insulin use: without tank terminal gauger use Primary hypertension I10 Hypertension type: primary hypertension High cholesterol E78.00
[2023-11-28 13:28] LABS: Glucose, Whole Blood 179 mg/dL (60-115)
== END 2023-11-28 13:50 | disposition home or self-care (01) ==
PROVIDERS: PCP Nurse Practitioner Primary Care; Visit Provider Physician Assistant
DX: E11.65 Type 2 diabetes mellitus with hyperglycemia (principal); I10 Essential (primary) hypertension; E78.00 Pure hypercholesterolemia, unspecified; Z13.9 Encounter for screening, unspecified; E11.69 Type 2 diabetes mellitus with other specified complication; Z79.4 Long term (current) use of insulin

== ENCOUNTER → 2023-11-28 13:11 | Outpatient (BNVA) | payer OTHER, SELFPAY | PROVIDERS: PCP Nurse Practitioner Primary Care; Visit Provider Physician Assistant | DX: E11.65 Type 2 diabetes mellitus with hyperglycemia (principal); I10 Essential (primary) hypertension; E78.00 Pure hypercholesterolemia, unspecified | CPT/HCPCS: 82947; 83036; 99212 ==

== ENCOUNTER 2023-12-04 08:56 | Outpatient (AMB) | payer OTHER, SELFPAY ==
--- NOTE | 2023-12-04 09:00 | A.OFFVIS_ITS ---
Intake Visit Reasons: vag bump/georgian/45 min Leadership Program Associate Required: Yes Leadership Program Associate Language: Adult Caregiver Name: Virginie HINDS Information Interpreted: non-clinical & clinical Termite Helper: Termite Helper Present (Virginie HINDS) Accompanied by: Self / Same As Patient Allergies aspirin [Aspirin] Allergy (Mild, Verified 11/28/23 13:21) ITCHY THROAT azithromycin Allergy (Unknown, Verified 11/28/23 13:21) Unknown naproxen Allergy (Unknown, Verified 11/28/23 13:21) Unknown simvastatin Allergy (Unknown, Verified 11/28/23 13:21) Unknown Fish Containing Products Allergy (Verified 11/28/23 13:21) Swelling onion [ONION] Adverse Reaction (Mild, Verified 11/28/23 13:21) RED FACE Is last menstrual period known: Yes HPI Comments Details: Patient is here today with a painful labial lump that is increasing in size over the last 4 days. She has been applying warm compress at home. [facility] Medical History Preop pulmonary/respiratory exam Well woman exam with routine gynecological exam Renal calculi UTI (urinary tract infection) Allergic rhinitis Anxiety and depression Fibromyalgia HTN (hypertension) PTSD (post-traumatic stress disorder) Vertigo Diabetes Chest pain Spondylosis of cervical region without myelopathy or radiculopathy Bronchitis COPD exacerbation Low vitamin D level Non-toxic multinodular goiter Hypothyroidism DVT (deep venous thrombosis) Cocaine abuse Surgical History History of esophagogastroduodenoscopy (EGD) H/O colonoscopy with polypectomy History of selective injection of anesthetic agent around lumbar nerve root Hx of right breast biopsy History of hysterectomy History of lithotripsy Family History Father No problems noted. 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 Female Reproductive History Menstrual Age of Menarche: 10 Review of Systems Const All systems reviewed & are unremarkable except as noted in HPI and below Endo Reports no additional complaints Physical Exam Const General: cooperative, healthy appearing and no acute distress Other: External inspection only: left labial edema, erythema and tenderness in the upper half of the labia majora, no drainage from scabbed area, unable to palpate abscess, no any fluctuations within the tissue Psych Appearance: well kempt Attitude: cooperative Thought process: Normal thought process present Assessment & Plan Assessment & Plan (1) Cellulitis of labia: Code(s): N76.2 - Acute vulvitis Category: Medical Plan Discussed: Initiation of antibiotic, importance of completing all medication and taking on time, use of warm compresses q.i.d.. Loose, comfortable clothing, Tylenol p.r.n. for discomfort. If no improvement within 24-48 hours or worsening symptoms she should report to the emergency room immediately for evaluation. If any fever flu-like symptoms lightheadedness or dizziness to report to the emergency room immediately. Advised to eat well and hydrate. Follow up appointment early next week scheduled. All of her questions and concerns were addressed to the best of my ability and shared decision making. She is agreeable to the plan of care. This note is constructed using voice recognition software. While every effort has been made to ensure accuracy, supervisor in circuit testing errors may have been included. Medications: New amoxicillin-pot clavulanate 875-125 mg 1 tab PO BID 20 tabs 0RF 10 days Coding Level of Care Code Est Pt Level 3 (80868) Diagnoses Cellulitis of labia N76.2
== END 2023-12-04 09:16 | disposition home or self-care (01) ==
LOC: HO.HWS 08:56
PROVIDERS: PCP Nurse Practitioner Primary Care; Visit Provider Advanced Practice Midwife
DX: N76.2 Acute vulvitis (principal)
CPT/HCPCS: 99213

== ENCOUNTER → 2023-12-04 08:56 | Outpatient (BNVA) | payer OTHER, SELFPAY | PROVIDERS: PCP Nurse Practitioner Primary Care; Visit Provider Advanced Practice Midwife | DX: N76.2 Acute vulvitis (principal) | CPT/HCPCS: 99212 ==

== ENCOUNTER 2023-12-09 10:47 | Outpatient (AMB) | payer OTHER, SELFPAY ==
--- NOTE | 2023-12-09 11:09 | A.OFFVIS_ITS ---
Intake Visit Reasons: Recheck per Monica Mac Director Independent Required: Yes Director Independent Language: Draw Bench Operator Helper Name: No [id number] Information Interpreted: non-clinical & clinical Manufacturing Engineer Machining: Manufacturing Engineer Machining Present (Shirley) Allergies aspirin [Aspirin] Allergy (Mild, Verified 11/28/23 13:21) ITCHY THROAT azithromycin Allergy (Unknown, Verified 11/28/23 13:21) Unknown naproxen Allergy (Unknown, Verified 11/28/23 13:21) Unknown simvastatin Allergy (Unknown, Verified 11/28/23 13:21) Unknown Fish Containing Products Allergy (Verified 11/28/23 13:21) Swelling onion [ONION] Adverse Reaction (Mild, Verified 11/28/23 13:21) RED FACE Is last menstrual period known: Yes HPI Comments Details: Patient is here today for a follow up on her vulvar cellulitis left labia, taking antibiotics as prescribed and using warm compresses at home as much as possible, she reports she is feeling better. [facility] Medical History Preop pulmonary/respiratory exam Well woman exam with routine gynecological exam Renal calculi UTI (urinary tract infection) Allergic rhinitis Anxiety and depression Fibromyalgia HTN (hypertension) PTSD (post-traumatic stress disorder) Vertigo Diabetes Chest pain Spondylosis of cervical region without myelopathy or radiculopathy Bronchitis COPD exacerbation Low vitamin D level Non-toxic multinodular goiter Hypothyroidism DVT (deep venous thrombosis) Cocaine abuse Surgical History History of esophagogastroduodenoscopy (EGD) H/O colonoscopy with polypectomy History of selective injection of anesthetic agent around lumbar nerve root Hx of right breast biopsy History of hysterectomy History of lithotripsy Family History Father No problems noted. 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 Psych Appearance: well kempt Attitude: cooperative Thought process: Normal thought process present Assessment & Plan Assessment & Plan (1) Cellulitis of labia: Code(s): N76.2 - Acute vulvitis Category: Medical Plan Discussed: Cellulitis has much improved. No need for I& D. Continue with warm compresses, cleaned with water loose cotton underwear after towel drying, no intimacy for now. Complete all antibiotics as prescribed. Call the office right away if any increase in pain or swelling. Follow up in 3 days for skin check. Encouraged to healthy diabetic diet, hydrate well. All of her questions and concerns were addressed to the best of my ability and shared decision making. She is agreeable to the plan of care. This note is constructed using voice recognition software. While every effort has been made to ensure accuracy, scout leaser errors may have been included. Coding Level of Care Code Est Pt Level 3 (45520) Diagnoses Cellulitis of labia N76.2
== END 2023-12-09 12:02 | disposition home or self-care (01) ==
PROVIDERS: PCP Nurse Practitioner Primary Care; Visit Provider Advanced Practice Midwife
DX: N76.2 Acute vulvitis (principal)
CPT/HCPCS: 99213

== ENCOUNTER → 2023-12-09 10:47 | Outpatient (BNVA) | payer OTHER, SELFPAY | PROVIDERS: PCP Nurse Practitioner Primary Care; Visit Provider Advanced Practice Midwife | DX: N76.2 Acute vulvitis (principal) | CPT/HCPCS: 99212 ==

== ENCOUNTER 2023-12-12 09:43 | Outpatient (AMB) | payer OTHER, SELFPAY ==
--- NOTE | 2023-12-12 09:48 | MHC.OFFVIS ---
Intake Visit Reasons: skin check/30 mins Rn Procedures Required: Yes Rn Procedures Language: Hse Manager Name: Neda [id number] Information Interpreted: non-clinical & clinical Wire Straightening 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: Wire Straightening 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 Present (Shirley) Allergies aspirin [Aspirin] Allergy (Mild, Verified 12/12/23 09:49) ITCHY THROAT azithromycin Allergy (Unknown, Verified 12/12/23 09:49) Unknown naproxen Allergy (Unknown, Verified 12/12/23 09:49) Unknown simvastatin Allergy (Unknown, Verified 12/12/23 09:49) Unknown Fish Containing Products Allergy (Verified 12/12/23 09:49) Swelling onion [ONION] Adverse Reaction (Mild, Verified 12/12/23 09:49) RED FACE Is last menstrual period known: Yes HPI Comments Details: Patient is here today for a follow up on her left labial cellulitis. She is continuing to complete her antibiotics. She is smiling and reports she is feeling much better with the discomfort and has continued to use warm compresses to the area. She reports the bump is still present and has reduced in size. [facility] Medical History Preop pulmonary/respiratory exam Well woman exam with routine gynecological exam Renal calculi UTI (urinary tract infection) Allergic rhinitis Anxiety and depression Fibromyalgia HTN (hypertension) PTSD (post-traumatic stress disorder) Vertigo Diabetes Chest pain Spondylosis of cervical region without myelopathy or radiculopathy Bronchitis COPD exacerbation Low vitamin D level Non-toxic multinodular goiter Hypothyroidism DVT (deep venous thrombosis) Cocaine abuse Surgical History History of esophagogastroduodenoscopy (EGD) H/O colonoscopy with polypectomy History of selective injection of anesthetic agent around lumbar nerve root Hx of right breast biopsy History of hysterectomy History of lithotripsy Family History Father No problems noted. 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 Psych Appearance: well kempt Attitude: cooperative Thought process: Normal thought process present Assessment & Plan Assessment & Plan (1) Cellulitis of labia: Code(s): N76.2 - Acute vulvitis Category: Medical Plan Discuss plan of care: Continue with warm compresses, finish all antibiotics, wear loose comfortable cotton clothing, return to the office early next week for recheck. Or call sooner if there is any increase in tenderness, redness, or swelling. Advised the bump may still remain for many months as this is a slow healing region and that is sometimes a residual scar or hard lump remains which may not go away completely. All of her questions and concerns were addressed to the best of my ability and shared decision making. She is agreeable to the plan of care. This note is constructed using voice recognition software. While every effort has been made to ensure accuracy, chicken picker errors may have been included. Coding Level of Care Code Est Pt Level 3 (75002) Diagnoses Cellulitis of labia N76.2
== END 2023-12-12 10:23 | disposition home or self-care (01) ==
LOC: HO.HWS 09:43
PROVIDERS: PCP Nurse Practitioner Primary Care; Visit Provider Advanced Practice Midwife
DX: N76.2 Acute vulvitis (principal)
CPT/HCPCS: 99213

== ENCOUNTER → 2023-12-12 09:43 | Outpatient (BNVA) | payer OTHER, SELFPAY | PROVIDERS: PCP Nurse Practitioner Primary Care; Visit Provider Advanced Practice Midwife | DX: N76.2 Acute vulvitis (principal) | CPT/HCPCS: 99212 ==

== ENCOUNTER 2023-12-16 10:45 | Outpatient (AMB) | payer OTHER, SELFPAY ==
--- NOTE | 2023-12-16 10:47 | MHC.OFFVIS ---
Intake Visit Reasons: Recheck Vulva Spin Instructor Required: Yes Spin Instructor Language: Tubular Stock Glass Bulb Machine Former Name: Francesca [id number] Information Interpreted: non-clinical & clinical Supervisor Newspaper Deliveries: Supervisor Newspaper Deliveries Present (Shirley) Allergies aspirin [Aspirin] Allergy (Mild, Verified 12/12/23 09:49) ITCHY THROAT azithromycin Allergy (Unknown, Verified 12/12/23 09:49) Unknown naproxen Allergy (Unknown, Verified 12/12/23 09:49) Unknown simvastatin Allergy (Unknown, Verified 12/12/23 09:49) Unknown Fish Containing Products Allergy (Verified 12/12/23 09:49) Swelling onion [ONION] Adverse Reaction (Mild, Verified 12/12/23 09:49) RED FACE Is last menstrual period known: Yes HPI Comments Details: Patient is here today for a follow up on her external left labial cellulitis. She reports that she is doing well has no concerns, has completed her antibiotics in the area is healing very well. [facility] Medical History Preop pulmonary/respiratory exam Well woman exam with routine gynecological exam Renal calculi UTI (urinary tract infection) Allergic rhinitis Anxiety and depression Fibromyalgia HTN (hypertension) PTSD (post-traumatic stress disorder) Vertigo Diabetes Chest pain Spondylosis of cervical region without myelopathy or radiculopathy Bronchitis COPD exacerbation Low vitamin D level Non-toxic multinodular goiter Hypothyroidism DVT (deep venous thrombosis) Cocaine abuse Surgical History History of esophagogastroduodenoscopy (EGD) H/O colonoscopy with polypectomy History of selective injection of anesthetic agent around lumbar nerve root Hx of right breast biopsy History of hysterectomy History of lithotripsy Family History Father No problems noted. 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 Female Reproductive History Menstrual Age of Menarche: 10 Review of Systems Const All systems reviewed & are unremarkable except as noted in HPI and below Endo Reports no additional complaints Physical Exam Const General: cooperative, healthy appearing and no acute distress Other: External inspection only: Left labia edema small residual remains, no erythema, nontender Psych Appearance: well kempt Attitude: cooperative Thought process: Normal thought process present Assessment & Plan Assessment & Plan (1) Vulvar cellulitis: Code(s): N76.2 - Acute vulvitis Plan Cellulitis resolved-report any concerns in the future. Small residual lump is due to inflammation within a hair follicle which can reinflame/infect in the future, the debris within the core may not resolve completely and a small firm lump can remain no need for surgery or removal of this area. Wear loose cotton clothing. Has follow up for annual exam in 03/08/2024. All of her questions and concerns were addressed to the best of my ability and shared decision making. She is agreeable to the plan of care. This note is constructed using voice recognition software. While every effort has been made to ensure accuracy, summer camp counselor errors may have been included. Coding Level of Care Code Est Pt Level 3 (17237) Diagnoses Vulvar cellulitis N76.2
== END 2023-12-16 11:05 | disposition home or self-care (01) ==
LOC: HO.HWS 10:45
PROVIDERS: PCP Nurse Practitioner Primary Care; Visit Provider Advanced Practice Midwife
DX: N76.2 Acute vulvitis (principal)
CPT/HCPCS: 99213

== ENCOUNTER → 2023-12-16 10:45 | Outpatient (BNVA) | payer OTHER, SELFPAY | PROVIDERS: PCP Nurse Practitioner Primary Care; Visit Provider Advanced Practice Midwife | DX: N76.2 Acute vulvitis (principal) | CPT/HCPCS: 99212 ==

== ENCOUNTER 2023-12-18 13:41 | Outpatient (AMB) | payer OTHER, SELFPAY ==
[2023-12-18 13:46] VITALS: BP 137/77; BMI 37.0
--- NOTE | 2023-12-18 13:46 | A.OFFVIS_ITS ---
Vital Signs 12/18/23 13:46 Height 5 ft 2 in Weight 202 lb 6.15 oz BMI 37.0 BP 137/77 Blood Pressure Location Lt brachial Position Sitting Intake Visit Reasons: 8 weeks f/u Intake Note: Nuvia presents to in office follow up of US. CC: Patient states that she has been doing better but sometimes gets nausea from the Ozempic. Allergies aspirin [Aspirin] Allergy (Mild, Verified 02/03/24 14:16) ITCHY THROAT azithromycin Allergy (Unknown, Verified 02/03/24 14:16) Unknown naproxen Allergy (Unknown, Verified 02/03/24 14:16) Unknown simvastatin Allergy (Unknown, Verified 02/03/24 14:16) Unknown Fish Containing Products Allergy (Verified 02/03/24 14:16) Swelling onion [ONION] Adverse Reaction (Mild, Verified 02/03/24 14:16) RED FACE HPI HPI 8 weeks f/u: Details: Assessment & Plan (1) Small bowel motility disorder: Code(s): K59.9 - Functional intestinal disorder, unspecified Category: Medical (2) MCCOY (nonalcoholic steatohepatitis): Comment: LABS; 07/2011 LIver panel is totally normal, hemoglobin A1c covers around 7, alpha fetoprotein tumor marker at baseline is 1.6, 05/2018 autoimmune workup is negative, ferritin is normal at 49, she is immune to hepatitis a B and negative for hepatitis C. CURRENT LABS Laboratory Tests 06/02/2407/25/24 15:3414:[id number] Estimated GFR > 60 Total Bilirubin 0.3 0.4 AST 29 37 H ALT 43 H 50 H Alkaline Phosphatase 98 ULTRASOUND OF THE ABDOMEN 05/20/23 FINDINGS: PANCREAS: Limited visualization of pancreatic tail and head. Imaged portion of pancreatic body is unremarkable. ABDOMINAL AORTA: Atherosclerosis in the distal abdominal aorta with AP diameter of 2.5 cm. INFERIOR VENA CAVA: Visualized portions are normal. LIVER: Hepatomegaly, 16.1 cm. Increased hepatic parenchymal heterogeneity and echogenicity could be associated with hepatocellular disease/hepatic steatosis and substantially limits visualization. Correlation with liver function tests and clinical exam recommended to determine further management. GALLBLADDER: No gallstones. No gallbladder wall thickening. COMMON BILE DUCT: Normal in caliber measuring 0.8 cm in diameter. RIGHT KIDNEY: No hydronephrosis. No renal calculi. Limited visualization. The kidney measures 7.3 cm in maximum dimension. LEFT KIDNEY: 2.7 x 2.5 x 3.3 cm upper pole cyst. There is no indication for additional imaging at this time. No hydronephrosis. No renal calculi. Limited visualization. The kidney measures 10.5 cm in maximum dimension. SPLEEN: Normal. The spleen measures 9.5 cm in maximum dimension. FREE FLUID: None. US/US abdomen complete IMPRESSION: 1. Hepatomegaly, 16.1 cm. Increased hepatic parenchymal heterogeneity and echogenicity could be associated with hepatocellular disease/hepatic steatosis and substantially limits visualization. Correlation with liver function tests and clinical exam recommended to determine further management. 2. Atherosclerosis in the distal abdominal aorta with AP diameter of 2.5 cm. Code(s): K75.81 - Nonalcoholic steatohepatitis (MCCOY) Category: Medical Plan TURKISH #Lorin lIVE She is doing fairly well, but she feels that the reglan is upsetting her stomach somewhat. There are no severe adverse effects such as tremor or anxiety. Of note, she is also on Ozempic and has very severe and difficult to control CIC. We will 1/2 the 10mg tid reglan to 5mg tid and evaluate if this will help. She continues on her senna, omeprazole, and Trulance. ROV 8 weeks. Mccoy labs reviewed, US ordered. Orders: Orders US abdomen complete Today K75.81 - Nonalcoholic steatohepatitis (MCCOY) Medications: New metoclopramide HCl (Reglan) 5 mg PO TID 90 tabs 6RF K59.9 - Functional intestinal disorder, unspecified plecanatide (Trulance) 3 mg PO DAILY 30 tabs 6RF Refilled omeprazole 20 mg PO BID@0630,1630 60 caps 6RF sennosides (senna) 17.2 mg (2 x 8.6 mg) PO BEDTIME 60 tabs 6RF constipation ULTRASOUND OF THE ABDOMEN 11/10/23 FINDINGS: PANCREAS: Visualized portions of the pancreas are unremarkable however portions are obscured by bowel gas limiting evaluation. ABDOMINAL AORTA: Infrarenal abdominal aortic aneurysm appears somewhat under measured on today's exam measuring 2.4 cm, previously 3.[address] INFERIOR VENA CAVA: Visualized portions are normal. LIVER: The liver is normal in size. The liver contour is normal. Mildly increased hepatic echogenicity which can be seen in the setting of hepatic steatosis or underlying liver disease. No focal hepatic lesion. There is no intrahepatic biliary duct dilatation seen. GALLBLADDER: Normal. The gallbladder is physiologically distended without evidence of stones, sludge, polyps, wall thickening or pericholecystic fluid. COMMON BILE DUCT: Normal in caliber measuring 0.5 cm in diameter. RIGHT KIDNEY: Normal. No hydronephrosis. No renal calculi or focal parenchymal lesions. The kidney measures 7.4 cm in maximum dimension. LEFT KIDNEY: No hydronephrosis or renal calculi. The kidney measures 12.1 cm in maximum dimension. SPLEEN: Normal. The spleen measures 6.8 cm in maximum dimension. FREE FLUID: None. US/US abdomen complete IMPRESSION: 1. Mildly increased hepatic echogenicity which can be seen in the setting of hepatic steatosis or underlying liver disease. 2. Infrarenal abdominal aortic aneurysm appears somewhat under measured on today's exam measuring 2.4 cm, previously 3.[address] Recommend continued imaging surveillance as previously recommended. CORRESPONDENCE On 11/21/23 @ 13:37 Osiris Wallace Wrote To Umm Ellsworth yes , correct she had white rice with pork chops. patient informed Magnesium Citrate sent and she did confirm taking Trulance and Reglan. On 11/21/23 @ 13:30 Umm Ellsworth Wrote To Osiris Wallace Umm Ellsworth removed from item. On 11/21/23 @ 13:29 Umm Ellsworth Wrote To Umm Ellsworth (2) This usually happens to her when she eats white rice or white bread. I will send some magnesium citrate to see if she can clear and get herself going. Also confirmed that she is still taking her Trulance and her Reglan. On 11/21/23 @ 10:10 Osiris Wallace Wrote To Umm Ellsworth patient states she ate something that she should not have and is now feeling this sharp pain near her liver. patient states recently had imaging of her liver, nothing has changed but that this comes and it goes. patient at this time is most concern about her constipation. patient states last BM was 4-5 days ago and states she has found herself straining. patient is also on Ozempic and she states that the senna and Docusate is not helping her. patient looking for advice given she is also on the Ozempic On 11/21/23 @ 09:36 Samuel Vega Wrote To Umm Ellsworth (2) Strong sharp pain on right side by liver area, constipation , nauseas, can not go to bathroom. Requesting a call back to number on file. On 11/21/23 @ 13:37 Osiris Wallace Wrote To Umm Ellsworth yes , correct she had white rice with pork chops. patient informed Magnesium Citrate sent and she did confirm taking Trulance and Reglan. TODAY'S VISIT TURKISH #Kayla Hicks She continues on omeprazole, senna, Trulance and reglan 5mg. She was recently constipated and had her usual presentation of RUQ burning, but this cleared with magnesium citrate and she is now back to regular BM's. However, she is also in the process of up titration of her Ozempic which has an obvious effect on her CIC adn nausea r/t paresis. I educated her that she needs to let me know if her conditions become uncontrolled, as this can happen at times and we may need to adjust her GI regiman. Return office visit in 6 months [facility] Medical History (Updated 02/06/24 @ 15:14 by FABIAN Yang) Trochanteric bursitis of right hip Patellofemoral arthritis of left knee Dry mouth Environmental allergies Type 2 diabetes mellitus with hyperglycemia Menopausal state Type 2 diabetes mellitus MOCK (dyspnea on exertion) Kidney stone on left side Leg pain Tear of medial meniscus of left knee Abnormal finding on ultrasound Abnormal ultrasound of kidney Bilateral renal cysts Severe persistent asthma Asthma Bilateral hand pain Bilateral knee pain Carpal tunnel syndrome of right wrist Cubital tunnel syndrome on right Renal calculi UTI (urinary tract infection) History of kidney stones COVID-19 COVID-19 COPD exacerbation Bronchitis Chest pain Acute asthma exacerbation Tubular adenoma of colon Vulvovaginitis Bronchitis Candidiasis of mouth and esophagus Yeast infection Papanicolaou smear for cervical cancer screening Preop pulmonary/respiratory exam Well woman exam with routine gynecological exam Allergic rhinitis Anxiety and depression Fibromyalgia HTN (hypertension) PTSD (post-traumatic stress disorder) Vertigo Diabetes Spondylosis of cervical region without myelopathy or radiculopathy Low vitamin D level Non-toxic multinodular goiter Hypothyroidism DVT (deep venous thrombosis) Cocaine abuse Surgical History History of esophagogastroduodenoscopy (EGD) H/O colonoscopy with polypectomy History of selective injection of anesthetic agent around lumbar nerve root Hx of right breast biopsy History of hysterectomy History of lithotripsy Family History Father No problems noted. 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 Female Reproductive History Menstrual Age of Menarche: 10 Review of Systems Const Denies fatigue, Denies fever(s), Denies night sweats, Denies poor appetite and Denies weight loss ENT Reports Normal hearing present, Denies dental pain, Denies dysphagia, Denies hearing loss, Denies mouth pain, Denies odynophagia, Denies throat swelling, Denies tongue swelling and Reports other (Dentition adequate) Card Reports no additional complaints Resp Reports no additional complaints and Reports wheezing GI Details: Denies abdominal pain, Denies melena, Denies bloating, Denies hematochezia, Reports constipation, Denies GI cramping, Denies dysphagia, Denies excessive flatus, Denies early satiety, Reports heartburn, Denies diarrhea, Denies nausea, Denies odynophagia, Denies vomiting and Denies hematemesis Musc Reports myalgias Skin/Breast Denies pruritus, Denies lesions, Denies rash and Denies jaundice Neuro Reports Normal hearing present and Denies Abnormal speech present Endo Denies fatigue Aller/Immun Denies throat swelling, Denies tongue swelling and Reports wheezing Physical Exam Vital Signs: Last Vital Signs BP 137/77 12/18/23 13:46 BMI result Body Mass Index 37.0 Const General: cooperative, no acute distress, well developed and well groomed Nutritional Appearance: well nourished and obese Orientation/consciousness: oriented to person, oriented to place and oriented to time Limitations: language barrier HEENT Head: Yes normocephalic and Yes atraumatic Eyes General: appearance normal, both eyes and all related structures Pupils: Equal, round and reactive pupils present Neck Neck: Yes normal visual inspection and Yes no lymphadenopathy Thyroid: Thyroid normal Resp Effort & Inspection: normal respiratory effort and able to speak in complete sentences Auscultation: clear to auscultation bilaterally Cardio Rate: regular rate Rhythm: regular rhythm Heart sounds: Normal, physiologic split S2 sound present Peripheral pulses: radial pulses present and posterior tibial pulses present GI Inspection: No distended, Yes Abdominal panniculus present and Yes obesity Palpation (GI): Soft to palpation, nontender, no guarding, not rigid and No hepatosplenomegaly present Percussion: Yes normal to percussion Auscultation: normal bowel sounds Rectal Exam - Female: deferred Skin General skin exam: no rashes or lesions noted, turgor normal, skin not dry, no jaundice, No spider nevi and no striae Rashes: no rashes Nails: normal Neuro General: oriented to person, oriented to place and oriented to time Cranial nerves: Yes Equal, round and reactive pupils present and Yes Normal h earing present Speech: No Abnormal speech present Extrem General: Yes normal to inspection, No clubbing, No cyanosis and No edema Psych Appearance: grossly normal and well kempt Mental Status: mental status grossly normal Speech and movement: Normal speech and movement present Affect: normal affect Attitude: cooperative Thought process: Normal thought process present and not confabulating Thought content: Normal thought content present Insight: Limited insight present (Psych) Judgement: Limited judgement present (Psych) Assessment & Plan Assessment & Plan (1) Small bowel motility disorder: Code(s): K59.9 - Functional intestinal disorder, unspecified Category: Medical (2) Chronic idiopathic constipation: Code(s): K59.04 - Chronic idiopathic constipation Category: Medical (3) GERD (gastroesophageal reflux disease): Code(s): K21.9 - Gastro-esophageal reflux disease without esophagitis Category: Medical (4) MCCOY (nonalcoholic steatohepatitis): Comment: LABS; 07/2011 LIver panel is totally normal, hemoglobin A1c covers around 7, alpha fetoprotein tumor marker at baseline is 1.6, 05/2018 autoimmune workup is negative, ferritin is normal at 49, she is immune to hepatitis a B and negative for hepatitis C. CURRENT LABS Laboratory Tests 06/02/2407/25/24 15:3414:31 Estimated GFR > 60 Total Bilirubin 0.3 0.4 AST 29 37 H ALT 43 H 50 H Alkaline Phosphatase 98 ULTRASOUND OF THE ABDOMEN 05/20/23 FINDINGS: PANCREAS: Limited visualization of pancreatic tail and head. Imaged portion of pancreatic body is unremarkable. ABDOMINAL AORTA: Atherosclerosis in the distal abdominal aorta with AP diameter of 2.5 cm. INFERIOR VENA CAVA: Visualized portions are normal. LIVER: Hepatomegaly, 16.1 cm. Increased hepatic parenchymal heterogeneity and echogenicity could be associated with hepatocellular disease/hepatic steatosis and substantially limits visualization. Correlation with liver function tests and clinical exam recommended to determine further management. GALLBLADDER: No gallstones. No gallbladder wall thickening. COMMON BILE DUCT: Normal in caliber measuring 0.8 cm in diameter. RIGHT KIDNEY: No hydronephrosis. No renal calculi. Limited visualization. The kidney measures 7.3 cm in maximum dimension. LEFT KIDNEY: 2.7 x 2.5 x 3.3 cm upper pole cyst. There is no indication for additional imaging at this time. No hydronephrosis. No renal calculi. Limited visualization. The kidney measures 10.5 cm in maximum dimension. SPLEEN: Normal. The spleen measures 9.5 cm in maximum dimension. FREE FLUID: None. US/US abdomen complete IMPRESSION: 1. Hepatomegaly, 16.1 cm. Increased hepatic parenchymal heterogeneity and echogenicity could be associated with hepatocellular disease/hepatic steatosis and substantially limits visualization. Correlation with liver function tests and clinical exam recommended to determine further management. 2. Atherosclerosis in the distal abdominal aorta with AP diameter of 2.5 cm. Code(s): K75.81 - Nonalcoholic steatohepatitis (MCCOY) Category: Medical Plan TURK[place] #Kayla Fabiola She continues on omeprazole, senna, Trulance and reglan 5mg. She was recently constipated and had her usual presentation of RUQ burning, but this cleared with magnesium citrate and she is now back to regular BM's. However, she is also in the process of up titration of her Ozempic which has an obvious effect on her CIC adn nausea r/t paresis. I educated her that she needs to let me know if her conditions become uncontrolled, as this can happen at times and we may need to adjust her GI regiman. Return office visit in 6 months Coding Level of Care Code Est Pt Level 3 (81266) Diagnoses Small bowel motility disorder K59.9 Chronic idiopathic constipation K59.04 GERD (gastroesophageal reflux disease) K21.9 MCCOY (nonalcoholic steatohepatitis) K75.81
== END 2023-12-18 14:25 | disposition home or self-care (01) ==
LOC: HO.HGI 13:42
PROVIDERS: PCP Nurse Practitioner Primary Care; Visit Provider Nurse Practitioner
DX: K59.9 Functional intestinal disorder, unspecified (principal); K59.04 Chronic idiopathic constipation; K21.9 Gastro-esophageal reflux disease without esophagitis; K75.81 Nonalcoholic steatohepatitis (NASH)
CPT/HCPCS: 99213

== ENCOUNTER → 2023-12-18 13:41 | Outpatient (BNVA) | payer OTHER, SELFPAY | PROVIDERS: PCP Nurse Practitioner Primary Care; Visit Provider Nurse Practitioner | DX: K59.9 Functional intestinal disorder, unspecified (principal); K75.81 Nonalcoholic steatohepatitis (NASH); R11.0 Nausea | CPT/HCPCS: 99212 ==

== ENCOUNTER → 2023-12-28 11:03 | Outpatient (BNV) | payer OTHER, SELFPAY | PROVIDERS: Emergency Provider Emergency Medicine; PCP Nurse Practitioner Primary Care; Visit Provider Internal Medicine Cardiovascular Disease | DX: R94.31 Abnormal electrocardiogram [ECG] [EKG] (principal) | CPT/HCPCS: 93010 ==

== ENCOUNTER 2023-12-28 11:04 | Emergency (ER) | payer OTHER, SELFPAY ==
--- NOTE | 2023-12-28 | ECG_ITS ---
Test Reason : CHEST PAIN Blood Pressure : / mmHG Vent. Rate : 084 BPM Atrial Rate : 084 BPM P-R Int : 218 ms QRS Dur : 102 ms QT Int : 388 ms P-R-T Axes : 048 -46 020 degrees QTc Int : 458 ms Sinus rhythm with 1st degree A-V block Left anterior fascicular block Minimal voltage criteria for LVH, may be normal variant ( Bala product ) Abnormal ECG When compared with ECG of 31-OCT-2023 11:00, No significant change was found Referred By: Generic ED Physician Electronically Signed By:Agus Denise
--- NOTE | ~2023-12-28 | XR_ITS ---
EXAMINATION: XR CHEST 2 VIEWS CLINICAL INFORMATION: cough, r./o PNA COMPARISON: October 2023 TECHNIQUE: XR CHEST 2 VIEWS, 2 Views Lungs and Jyothi: Elevation left hemidiaphragm unchanged. Lungs otherwise are clear. Pleura: Normal. Costophrenic angles are sharp. No pneumothorax. Heart: The heart is normal in size. Mediastinum: There is unfolding of the aorta unchanged. There are aortic calcifications.. Bones: No acute changes. XR/XR chest 2V IMPRESSION: 1. No radiographic evidence of acute infiltrates or failure. 2. Elevation left hemidiaphragm unchanged. Electronically signed by: Wesly Ponce MD 12/28/2023 01:54 PM EST RP
[2023-12-28 11:14] VITALS: BP 110/40; PULSE 81; RESP 18; O2SAT 96; BMI 34.3
[2023-12-28 11:18] VITALS: TEMP 36.9
--- NOTE | 2023-12-28 12:18 | ED.SOB ---
HPI - SOB/Dyspnea General Chief Complaint: Dyspnea Stated Complaint: sob-cp Time Seen by Provider: 12/28/23 11:39 Source: patient and healthcare interpreter Mode of arrival: ambulatory Limitations: language barrier History of Present Illness ED Provider: Alexandra Aldana APRN HPI Narrative: 63 yo female with past medical history of DM, asthma (spiriva, albuterol, omalizumab Q2 weeks) here with complaints of 3 days of chest congestion, productive cough with yellow sputum, SOB, wheezing, headache, body aches. She did a COVID test at home yesterday and it was negative. Multiple family members at home have URI symptoms. Former Smoker Last used albuterol at 9AM No history of hospitalizations for asthma. Related Data Home Medications ?Medication ?Instructions ?Recorded ?Confirmed calcium carbonate 600 mg-vitamin 1 tab PO BID 11/20/19 11/28/23 D3 10 mcg (400 unit) tablet potassium chloride 20 mEq 20 meq PO BID 11/20/19 11/28/23 tablet,extended release(part/cryst) zolpidem 10 mg tablet 10 mg PO BEDTIME PRN Insomnia 11/20/19 11/28/23 clonazepam 1 mg tablet (Klonopin) 1 mg PO DAILY 03/08/20 11/28/23 montelukast 10 mg tablet 10 mg PO BEDTIME 03/08/20 11/28/23 multivitamin-ferrous 1 tab PO DAILY 07/06/21 11/28/23 fumarate-folic acid 18 mg-400 mcg tablet (Certavite-Antioxidant) fluoride (sodium) 1.1 % dental appl PO 10/16/21 11/28/23 cream (SF 5000 Plus) tramadol 50 mg tablet 50 mg PO BID PRN Pain 01/31/22 11/28/23 diclofenac sodium 1 % topical gel g topical 05/07/22 11/28/23 acetaminophen 325 mg tablet 325 mg PO PRN pain 06/11/22 11/28/23 amlodipine 10 mg tablet 10 mg PO DAILY 07/09/23 11/28/23 atorvastatin 80 mg tablet 80 mg PO BEDTIME 07/09/23 11/28/23 cetirizine 10 mg tablet 10 mg PO QPM 07/09/23 11/28/23 enalapril maleate 20 mg tablet 20 mg PO DAILY 07/09/23 11/28/23 buspirone 15 mg tablet 15 mg PO TID 12/18/23 insulin lispro 100 unit/mL 4 unit subcut TID PRN 12/18/23 subcutaneous pen (Humalog KwikPen (U-100) Insulin) meclizine 25 mg tablet mg PO 12/18/23 Previous Rx's ?Medication ?Instructions ?Recorded leg brace (Knee Support Brace) #2 ea 03/08/20 blood-glucose meter (FreeStyle #1 ea 02/28/22 Flash System kit) pen needle, diabetic 32 gauge x ##100 10/01/22 (UltiCare Pen Needle) fluticasone 250 mcg-salmeterol 50 1 ea inhalation BID 30 days #60 ea 10/02/22 mcg/dose blistr powdr for inhalation lidocaine 5 % topical patch 1 patch topical DAILY #15 ea 10/20/22 gabapentin 400 mg capsule 400 mg PO BEDTIME #30 caps 01/01/23 hydrocortisone 2.5 % topical cream 1 appl UT BID hemorrhoids #30 grams 02/04/23 with perineal applicator (Proctosol HC) pyridoxine (vitamin B6) 100 mg 100 mg PO DAILY #90 tabs 03/04/23 tablet levothyroxine 75 mcg tablet 75 mcg PO QAM #90 tabs 04/14/23 omalizumab 150 mg subcutaneous 300 mg subcut Q2W 28 days #4 ea 05/19/23 solution clotrimazole-betamethasone 1 1 appl topical BID itching 7 days 06/12/23 %-0.05 % topical cream #45 grams hydrocodone 5 mg-acetaminophen 325 1 tab PO Q8H PRN pain 7 days #21 06/26/23 mg tablet tabs tiotropium bromide 18 mcg capsule 1 cap inhalation DAILY #30 caps 07/10/23 with inhalation device (Spiriva with HandiHaler) acetaminophen 500 mg tablet 1,000 mg (2 x 500 mg) PO Q6H PRN 09/04/23 (Tylenol Extra Strength) fever or pain #20 tabs ibuprofen 400 mg tablet 400 mg PO TID PRN fever or pain 09/04/23 #30 tabs lorazepam 1 mg tablet (Ativan) 1 mg PO TID PRN anxiety #10 tabs 09/04/23 dextrose 40 % oral gel (Glutose-15) 15 g PO DIRECTED for 10/10/23 hypoglycemia #112.5 grams blood sugar diagnostic (FreeStyle #100 strips 10/13/23 Lite Strips) lancets 33 gauge (TRUEplus Lancets) #100 ea 10/13/23 flash glucose scanning reader #1 ea 10/16/23 (FreeStyle Jalil 2 Everly) metoclopramide HCl 5 mg tablet 5 mg PO TID #90 tabs 10/24/23 (Reglan) plecanatide 3 mg tablet (Trulance) 3 mg PO DAILY #30 tabs 10/24/23 sennosides 8.6 mg tablet (senna) 17.2 mg (2 x 8.6 mg) PO BEDTIME 10/24/23 constipation #60 tabs Lactobacil rhamnosus GG 10 billion 1 cap PO DAILY #30 caps 11/07/23 cell-inulin 200 mg sprinkle capsule ([facility] [employer] [facility]) albuterol sulfate 90 mcg/actuation 2 puff inhalation Q4-6H PRN for 11/17/23 aerosol inhaler (Ventolin HFA) wheezing #18 grams docusate sodium 100 mg capsule 100 mg PO BID #60 caps 11/20/23 (Stool Softener) omeprazole 20 mg capsule,delayed 20 mg PO BID #60 caps 11/20/23 release magnesium citrate 150 ml PO DAILY #300 mL 11/21/23 ipratropium 20 mcg-albuterol 100 1 puff PO QID #4 grams 11/26/23 mcg/actuation mist for inhalation (Combivent Respimat) flash glucose sensor (FreeStyle #2 ea 11/28/23 Jalil 2 Sensor kit) amoxicillin 875 mg-potassium 1 tab PO BID 10 days #20 tabs 12/04/23 clavulanate 125 mg tablet semaglutide 1 mg/dose (4 mg/3 mL) 1 mg (0.75 mL) subcut QWEEK #3 mL 12/04/23 subcutaneous pen injector (Ozempic) doxycycline monohydrate 100 mg 100 mg PO BID #10 caps 12/28/23 capsule prednisone 20 mg tablet 40 mg (2 x 20 mg) PO DAILY #10 tabs 12/28/23 Allergies Allergy/AdvReac Type Severity Reaction Status Date / Time aspirin [Aspirin] Allergy Mild ITCHY Verified 12/28/23 11:16 THROAT azithromycin Allergy Unknown Unknown Verified 12/28/23 11:16 naproxen Allergy Unknown Unknown Verified 12/28/23 11:16 simvastatin Allergy Unknown Unknown Verified 12/28/23 11:16 Fish Containing Products Allergy Swelling Verified 12/28/23 11:16 onion [ONION] AdvReac Mild RED FACE Verified 12/28/23 11:16 Review of Systems Review of Systems: Yes all other systems are reviewed and are negative Constitutional: Constitutional: Reports no additional constitutional complaints, Reports body ache(s), Denies chills, Denies fever(s), Reports headache(s) and Denies weakness Eyes: Eyes: Reports no additional eye complaints and Denies change in vision ENT: Reports system reviewed and no additional complaints, except as documented, Denies dizziness, Reports headache(s), Denies nasal congestion, Denies nasal discharge and Denies neck pain Cardiovascular: Cardiovascular: Reports no additional cardiovascular complaints, Denies chest pain, Denies leg edema and Reports dyspnea Respiratory: Respiratory: Reports no additional respiratory complaints, Reports cough, Reports dyspnea and Reports wheezing Gastrointestinal: Gastrointestinal: Reports no additional gastrointestinal complaints, Denies abdominal pain, Denies diarrhea, Denies nausea and Denies vomiting Genitourinary: Genitourinary: Reports no additional female genitourinary complaints and Denies urinary incontinence Musculoskeletal: Musculoskeletal: Reports no additional musculoskeletal complaints, Denies back pain, Denies arthralgias, Denies joint swelling, Denies neck pain, Denies numbness and Denies tingling Integumentary/Breasts: Skin/Breast: Reports system reviewed and no additional complaints, except as docu and Denies rash Neurologic: Reports system reviewed and no additional complaints, except as documented, Denies Abnormal speech present, Denies dizziness, Reports headache(s), Denies numbness, Denies tingling and Denies weakness Allergic/Immunologic: Allergic/Immunologic: Reports wheezing PMFSH Past Medical History Attestation statement: The following information was validated with the patient. Source: old records reviewed and nursing notes reviewed Medical History History of kidney stones COVID-19 COVID-19 COPD exacerbation Bronchitis Chest pain Acute asthma exacerbation Tubular adenoma of colon Vulvovaginitis Bronchitis Candidiasis of mouth and esophagus Yeast infection Papanicolaou smear for cervical cancer screening Preop pulmonary/respiratory exam Well woman exam with routine gynecological exam Renal calculi UTI (urinary tract infection) Allergic rhinitis Anxiety and depression Fibromyalgia HTN (hypertension) PTSD (post-traumatic stress disorder) Vertigo Diabetes Spondylosis of cervical region without myelopathy or radiculopathy Low vitamin D level Non-toxic multinodular goiter Hypothyroidism DVT (deep venous thrombosis) Cocaine abuse Surgical History History of esophagogastroduodenoscopy (EGD) H/O colonoscopy with polypectomy History of selective injection of anesthetic agent around lumbar nerve root Hx of right breast biopsy History of hysterectomy History of lithotripsy Family History Family History Father No problems noted. 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 Physical Exam Vital Signs: Vital Signs: Last Vital Signs Temp 98.3 F 12/28/23 12:25 Pulse 67 12/28/23 12:50 Resp 23 H 12/28/23 12:50 BP 137/87 12/28/23 12:25 Pulse Ox 95 12/28/23 12:25 O2 Del Method Room Air 12/28/23 12:25 BMI result Body Mass Index 34.3 Const: General: cooperative, healthy appearing, comfortable and no acute distress Orientation/consciousness: patient oriented x3 Limitations: no limitations HEENT: Head: Yes normal to inspection Ears: hearing grossly normal bilaterally and TM's normal bilaterally General nose exam: Normal external nose present Face and sinus: Yes normal facial exam Mouth: Normal oral and palatal mucosa present Throat: Yes posterior oropharynx normal, Yes tonsils normal and Yes uvula midline Eyes: General: appearance normal, both eyes and all related structures Pupils: Equal, round and reactive pupils present Neck: Neck: Yes normal visual inspection, Yes full ROM, Yes no lymphadenopathy and Yes no meningeal signs Chest: Chest palpation & inspection: normal inspection of the chest Resp: Other: Mild wheezing expiratory Effort & Inspection: normal respiratory effort Cardio: Rate: regular rate Rhythm: regular rhythm Peripheral pulses: Peripheral pulses 2+ throughout GI: Inspection: Yes normal to inspection Palpation (GI): Soft to palpation and nontender Auscultation: normal bowel sounds Back/Spine/Pelvis: Thoracic/Lumbar Spine: thoracic and lumbar spine normal to inspection Skin: General skin exam: no rashes or lesions noted Neuro: General: patient oriented x3, no meningeal signs, no focal motor deficits and normal sensation to monofilament Cranial nerves: Yes Equal, round and reactive pupils present Cognition (Neuro): normal cognition Speech: No Abnormal speech present Gait exam (Neuro): Normal gait present Motor exam (neuro): 5/5 motor strength present throughout Extrem: General: Yes normal to inspection, Yes no pedal edema and Yes no calf tenderness Medications Administered Discontinued Medications Generic Name Dose Route Start Last Admin Trade Name Freq PRN Reason Stop Dose Admin Albuterol Sulfate 2.5 mg/ 0 mg 12/28/23 12:50 12/28/23 12:55 Albuterol/Ipratropium 3 ml INHALE 12/28/23 12:51 5 dose ONCE ONE Administration Medical Decision Making Medical Decision Making [facility] Narrative: 63 yo female with past medical history of DM, asthma (spiriva, albuterol, omalizumab Q2 weeks) here with complaints of 3 days of chest congestion, productive cough with yellow sputum, SOB, wheezing, headache, body aches. She did a COVID test at home yesterday and it was negative. Multiple family members at home have URI symptoms. Former Smoker Last used albuterol at 9AM No history of hospitalizations for asthma. VSS On exam mild exp wheezing otherwise benign exam Will obtain viral testing, CXR, EKG (ordered from triage), RT order for bronch protocol Differential Diagnosis Differential Diagnoses: The differential diagnosis associated with the presentation includes viral syndrome, asthma exacerbation, influenza, PNA Low suspician for ACS, PE Admission/Observation Consideration of admission/observation: Escalation of care including admission/observation considered Patient likely has a viral syndrome which is causing asthma exacerbation she may also have some bronchitis with underlying history of chronic lung disease and so will treat her as a presumed bronchitis. She has no hypoxia or tachypnea and she is not requiring supplemental oxygen so I do not believe that she needs admission at this time. Lab Data [facility] Lab Attestation statement: I reviewed the patient's lab results. Labs: Lab Results 12/28/23 12/28/23 Range/Units 11:46 13:19 POC Glucose 123 H (60-115) mg/dL Influenza Type A (PCR) NEGATIVE (Negative) Influenza Type B (PCR) NEGATIVE (Negative) RSV RNA Qual (PCR) NEGATIVE (Negative) SARS-CoV-2 RNA (RT-PCR) NEGATIVE (Negative) Independent Interpretation I performed an independent interpretation of an: EKG and Plain X-Ray Interpretation: I independently viewed the EKG which shows sinus rhythm with a first-degree AV block with a rate 84, normal QRS, normal QT I independently reviewed the x-ray and agree with the radiology report Radiology Impression Discussion of test interpretation with radiology: I have reviewed the radiologist's reading. Radiologist Impression: [place] [id number] XRay Report Signed Patient: Nuvia Fay MR#: [id number] : 1960 Acct:[id number] Age/Sex: 63 / F ADM Date: 12/28/23 Loc: .ED Attending Dr: Ordering Physician: Alexandra Martinez NP Date of Service: 12/28/23 Procedure(s): XR chest 2V Accession Number(s): [id number] cc: ANTHONY RUIZ MANUFACTURERS REPRESENTATIVE; Alexandra Martinez NP~ EXAMINATION: XR CHEST 2 VIEWS CLINICAL INFORMATION: cough, r./o PNA COMPARISON: October 2023 TECHNIQUE: XR CHEST 2 VIEWS, 2 Views Lungs and Jyothi: Elevation left hemidiaphragm unchanged. Lungs otherwise are clear. Pleura: Normal. Costophrenic angles are sharp. No pneumothorax. Heart: The heart is normal in size. Mediastinum: There is unfolding of the aorta unchanged. There are aortic calcifications.. Bones: No acute changes. XR/XR chest 2V IMPRESSION: 1. No radiographic evidence of acute infiltrates or failure. 2. Elevation left hemidiaphragm unchanged. Electronically signed by: Wesly Ponce MD 12/28/2023 01:54 PM [facility] Tests considered The following testing was considered but not selected: see above Prescription Management I considered prescription management with: Antibiotic Chronic Conditions Patient?s care impacted by: Diabetes and Other (asthma ) Discharge Plan Discharge Clinical Impression: Bronchitis Patient Disposition: Home, Self-Care Instructions: Acute Bronchitis (ED) Additional Instructions: Testing for flu, COVID, RSV are negative Chest x-ray shows no signs of pneumonia EKGs normal Take the medication as prescribed Follow up with the primary care doctor for any continued symptoms Return to the emergency room for any worsening symptoms Prescriptions: New doxycycline monohydrate 100 mg capsule 100 mg PO BID Qty: 10 0RF prednisone 20 mg tablet 40 mg PO DAILY Qty: 10 0RF No Action (DME) blood-glucose meter [FreeStyle Flash System] Kit See Rx Instructions .Route Qty: 1 0RF Rx Instructions: As directed (DME) pen needle, diabetic [UltiCare Pen Needle] 32 gauge x 5/32 needle See Rx Instructions .ROUTE .COMPLEX Qty: 100 5RF Dose Instruction: USE FOUR TIMES DAILY Rx Instructions: USE FOUR TIMES DAILY fluticasone propion-salmeterol 250-50 mcg/dose blister with device 1 ea inhalation BID 30 Days Qty: 60 6RF gabapentin 400 mg capsule 400 mg PO BEDTIME Qty: 30 4RF hydrocortisone [Proctosol HC] 2.5 % cream with perineal applicator 1 appl UT BID Qty: 30 6RF Rx Instructions: BE SURE TO INCLUDE RECTAL APPICATOR!! pyridoxine (vitamin B6) 100 mg tablet 100 mg PO DAILY Qty: 90 3RF levothyroxine 75 mcg tablet 75 mcg PO QAM Qty: 90 4RF omalizumab 150 mg recon soln 300 mg subcut Q2W 28 Days Qty: 4 11RF Rx Instructions: requires multiple injection sites; do not exceed 150 mg per injection site Spiriva with HandiHaler 18 mcg capsule, w/inhalation device 1 cap inhalation DAILY Qty: 30 6RF dextrose [Glutose-15] 40 % gel 15 g PO DIRECTED Qty: 112.5 5RF (DME) lancets [TRUEplus Lancets] 33 gauge misc See Rx Instructions .ROUTE .COMPLEX Qty: 100 5RF Dose Instruction: TEST BLOOD SUGAR FOUR TIMES DAILY Rx Instructions: TEST BLOOD SUGAR FOUR TIMES DAILY (DME) FreeStyle Lite Strips Strip See Rx Instructions .ROUTE .COMPLEX Qty: 100 5RF Dose Instruction: TEST BLOOD SUGAR FOUR TIMES DAILY Rx Instructions: TEST BLOOD SUGAR FOUR TIMES DAILY (DME) FreeStyle Jalil 2 Everly Misc See Rx Instructions .Route Qty: 1 0RF Rx Instructions: As directed [facility] [employer] [facility] 10 billion cell -200 mg capsule, sprinkle 1 cap PO DAILY Qty: 30 6RF albuterol sulfate [Ventolin HFA] 90 mcg/actuation HFA aerosol inhaler 2 puff inhalation Q4-6H PRN (Reason: for wheezing) Qty: 18 6RF docusate sodium [Stool Softener] 100 mg capsule 100 mg PO BID Qty: 60 6RF omeprazole 20 mg capsule,delayed release(DR/EC) 20 mg PO BID Qty: 60 6RF magnesium citrate Solution 150 ml PO DAILY Qty: 300 0RF Rx Instructions: Drink a half a bottle and wait half an hour, if no BM then complete the other. Repeat with the next bottle if no bowel movement Combivent Respimat 20-100 mcg/actuation mist 1 puff PO QID Qty: 4 3RF Ozempic 1 mg/dose (4 mg/3 mL) pen injector 1 mg subcut QWEEK Qty: 3 6RF Certavite-Antioxidant 18-400 mg-mcg Tablet 1 tab PO DAILY acetaminophen [Tylenol Extra Strength] 500 mg tablet 1,000 mg PO Q6H PRN (Reason: fever or pain) Qty: 20 0RF ibuprofen 400 mg tablet 400 mg PO TID PRN (Reason: fever or pain) Qty: 30 0RF lorazepam [Ativan] 1 mg tablet 1 mg PO TID PRN (Reason: anxiety) Qty: 10 0RF Rx Instructions: Patient may request partial fill lidocaine 5 % adhesive patch,medicated 1 patch topical DAILY Qty: 15 0RF Rx Instructions: leave on most painful area for up to 12 hrs atorvastatin 80 mg tablet 80 mg PO BEDTIME cetirizine 10 mg tablet 10 mg PO QPM enalapril maleate 20 mg tablet 20 mg PO DAILY amlodipine 10 mg tablet 10 mg PO DAILY montelukast 10 mg tablet 10 mg PO BEDTIME clonazepam [Klonopin] 1 mg tablet 1 mg PO DAILY Rx Instructions: administer 30 minutes before bedtime (DME) Knee Support Brace Misc See Rx Instructions .ROUTE .MEDSUPPLY Qty: 2 0RF Rx Instructions: As directed zolpidem 10 mg tablet 10 mg PO BEDTIME PRN (Reason: Insomnia) calcium carbonate-vitamin D3 600 mg(1,500mg) -400 unit tablet 1 tab PO BID potassium chloride 20 mEq tablet,ER particles/crystals 20 meq PO BID acetaminophen 325 mg tablet 325 mg PO PRN (Reason: pain) fluoride (sodium) [SF 5000 Plus] 1.1 % cream PO tramadol 50 mg tablet 50 mg PO BID PRN (Reason: Pain) diclofenac sodium 1 % gel topical metoclopramide HCl [Reglan] 5 mg tablet 5 mg PO TID Qty: 90 6RF Trulance 3 mg tablet 3 mg PO DAILY Qty: 30 6RF sennosides [senna] 8.6 mg tablet 17.2 mg PO BEDTIME Qty: 60 6RF hydrocodone-acetaminophen 5-325 mg tablet 1 tab PO Q8H PRN (Reason: pain) 7 Days Qty: 21 0RF Rx Instructions: Partial Fill upon patient request. insulin lispro [Humalog KwikPen Insulin] 100 unit/mL insulin pen 4 unit subcut TID PRN Rx Instructions: use as directed with meals buspirone 15 mg tablet 15 mg PO TID meclizine 25 mg tablet PO amoxicillin-pot clavulanate 875-125 mg tablet 1 tab PO BID 10 Days Qty: 20 0RF clotrimazole-betamethasone 1-0.05 % cream 1 appl topical BID 7 Days Qty: 45 0RF Rx Instructions: apply externally a thin coat to the area (DME) FreeStyle Jalil 2 Sensor Kit See Rx Instructions .Route Qty: 2 4RF Rx Instructions: As directed change every 14 days Referrals: Anthony Ruiz, MANUFACTURERS REPRESENTATIVE [Primary Care Provider] - 1 week Print Language: Cameroonian
[2023-12-28 12:25] VITALS: BP 137/87; PULSE 77; RESP 19; TEMP 36.8; O2SAT 95
[2023-12-28 12:36] LABS: Influenza A PCR NEGATIVE (Negative); Influenza B PCR NEGATIVE (Negative); Resp Syncy Virus RNA Qual PCR NEGATIVE (Negative); SARS COV2 PCR INHOUSE NEGATIVE (Negative)
[2023-12-28 12:50] VITALS: PULSE 67; RESP 23; O2SAT 96
[2023-12-28] MEDS: Albuterol Sulfate 2.5 MG, Albuterol/Iprat 2.5/0.5MG 3 ML 3 ML INHALE (12:55)
[2023-12-28 13:23] LABS: Glucose, Whole Blood 123 mg/dL (60-115)
[2023-12-28 14:37] VITALS: BP 00/00; PULSE 67; RESP 23; TEMP -17.7; TEMP 0
== END 2023-12-28 14:37 | disposition home or self-care (01) ==
PROVIDERS: Emergency Provider Emergency Medicine; PCP Nurse Practitioner Primary Care
DX: J40 Bronchitis, not specified as acute or chronic (principal); R06.00 Dyspnea, unspecified; R07.89 Other chest pain; R05.9 Cough, unspecified; R51.9 Headache, unspecified; M79.10 Myalgia, unspecified site; Z03.818 Encounter for observation for suspected exposure to other biological agents ruled out; Z79.899 Other long term (current) drug therapy
CPT/HCPCS: 0241U; 71046; 82947; 93005; 94640; 99284

== ENCOUNTER 2024-01-02 08:42 | Outpatient (REF) | payer OTHER, SELFPAY ==
[2024-01-02 11:27] LABS: Anion Gap 11 (12-20); Blood Urea Nitrogen 15 mg/dL (9-16); Calcium 9.4 mg/dL (8.4-10.2); Carbon Dioxide 27 mmol/L (22-29); Chloride 106 mmol/L (96-108); Cholesterol 177 mg/dL (<200); Estimated Glomerular Filt Rate > 60; Glucose Random 126 mg/dL (60-115); HDL Cholesterol 69 mg/dL (>40); LDL Cholesterol Calculated 90 mg/dL (<100); Potassium 3.3 mmol/L (3.3-5.1); Sodium 141 mmol/L (135-145); Triglycerides 93 mg/dL (<150)
[2024-01-02 12:00] LABS: Estimated Average Glucose 143 mg/dL; Hemoglobin A1C 272.5363 umol/L; Hemoglobin A1c % 6.6 % (<6.0); Total Hemoglobin (HGBA1C) 5558.1307 umol/L
[2024-01-02 12:18] LABS: Microalbum/Creatinine Ratio Ur 14.8 ug/mg cr (<30)
== END 2024-01-02 08:43 | disposition home or self-care (01) ==
LOC: HO.HHCL 08:42
PROVIDERS: Physician Assistant; Urology; Visit Provider Nurse Practitioner Primary Care
DX: E03.9 Hypothyroidism, unspecified (principal); E78.5 Hyperlipidemia, unspecified; E78.00 Pure hypercholesterolemia, unspecified; I10 Essential (primary) hypertension; E11.69 Type 2 diabetes mellitus with other specified complication; Z79.4 Long term (current) use of insulin
CPT/HCPCS: 36415; 80048; 80061; 82043; 82570; 83036

== ENCOUNTER 2024-01-05 07:44 | Day surgery (SDC) | payer OTHER, SELFPAY ==
--- NOTE | 2024-01-05 08:35 | W.PM.OPN ---
Operative Note Operative Note Date of Service: 01/05/24 Narrative: Operative Note Preop diagnosis: 1. Left trigger thumb Postop diagnosis: 1. Same Procedure: 1. Left thumb A1 amalia release Surgeon: Nicole Stewart MD Website Project Manager: None Anesthesia: local block using 1% lidocaine with epinephrine Findings: No locking or catching after A1 amalia release EBL: Less than 5 mL Tourniquet time: None Specimens: None Complications: None Disposition: Brought to recovery room in stable condition Plan: Follow-up for 10-14 days for wound check and suture removal Indications: The patient is 63 years old, with a left trigger thumb that has been unresponsive to nonoperative management. The risks and benefits of operative treatment including but not limited to risk of damage to blood vessels, nerves, tendons, infection, persistent pain, persistent symptoms, recurrence or possible need for additional surgery were discussed with the patient and the patient wishes to proceed with surgery. Procedure: Once consent was obtained a local block was performed in the preop area using a combination of 1% lidocaine with epinephrine. The patient was then brought back to the operating suite and placed on the operative table in supine position. The left upper extremity was prepped and draped in a standard surgical fashion. Once assured that we had a good block, a 1.5 cm oblique incision was made centered over the A1 amalia of the left thumb . The incision was made through the skin to the subcutaneous tissues using a #15 blade. Careful dissection was made down to the level of the A1 amalia using tenotomy scissors, with care being taken to protect the nearby neurovascular structures. A longitudinal incision was made in the A1 amalia 1st using a #15 blade, then using tenotomy scissors under direct visualization. The A1 amalia was noted to be thickened. Following our A1 amalia release, we no longer saw any locking or catching of the digit with flexion and extension. Once satisfied with our A1 amalia release the wound was copiously irrigated with normal saline and hemostasis was obtained with a brief period of local pressure. The skin edges were reapproximated with some 5.0 nylon suture material and a sterile dressing was applied. The patient appears to have tolerated the procedure well and with no complications. All digits were well vascularized at the conclusion of the case.
[2024-01-05 08:41] VITALS: BP 136/90; PULSE 79; RESP 16; TEMP 36.6; O2SAT 95; BMI 36.9
--- NOTE | 2024-01-05 09:12 | MHC.SHP ---
Pre-Procedural Eval Section A - 24 Hr Update-Section A only Date of Service: 01/05/24 The patient is an INPATIENT: No The patient has been examined within 24 hours of the surgical procedure. The History & Physical has been completed within 30 days and I have reviewed it.: Yes Section B - Complete if H&P > 30 days Chief Complaint: Trigger thumb, left thumb Allergies: Allergies Allergy/AdvReac Type Severity Reaction Status Date / Time aspirin [Aspirin] Allergy Mild ITCHY Verified 12/28/23 11:16 THROAT azithromycin Allergy Unknown Unknown Verified 12/28/23 11:16 naproxen Allergy Unknown Unknown Verified 12/28/23 11:16 simvastatin Allergy Unknown Unknown Verified 12/28/23 11:16 Fish Containing Products Allergy Swelling Verified 12/28/23 11:16 onion [ONION] AdvReac Mild RED FACE Verified 12/28/23 11:16 Plan Diagnosis/Plan: Unchanged I have reviewed the history and physical and performed a pertinent physical examination on my patient. No changes have occurred unless specified. Time Spent With Patient Time: Total time managing care of this patient today ____ minutes.
[2024-01-05 11:15] VITALS: BP 134/72; PULSE 84; RESP 20
== END 2024-01-05 11:38 | disposition home or self-care (01) ==
PROVIDERS: PCP Nurse Practitioner Primary Care; Visit Provider Orthopaedic Surgery
PROC: (CPT 26055; principal; 2024-01-05 10:40)
DX: M65.312 Trigger thumb, left thumb (principal); G89.29 Other chronic pain; I10 Essential (primary) hypertension; J44.9 Chronic obstructive pulmonary disease, unspecified; E11.9 Type 2 diabetes mellitus without complications; E03.9 Hypothyroidism, unspecified; Z98.890 Other specified postprocedural states; I82.409 Acute embolism and thrombosis of unspecified deep veins of unspecified lower extremity; Z79.1 Long term (current) use of non-steroidal anti-inflammatories (NSAID); Z79.899 Other long term (current) drug therapy; Z79.51 Long term (current) use of inhaled steroids; F14.10 Cocaine abuse, uncomplicated; Z88.6 Allergy status to analgesic agent; Z88.8 Allergy status to other drugs, medicaments and biological substances
CPT/HCPCS: 26055; J0171; J2003; J2795

== ENCOUNTER → 2024-01-05 07:44 | Outpatient (BNV) | payer OTHER, SELFPAY | PROVIDERS: PCP Nurse Practitioner Primary Care; Visit Provider Orthopaedic Surgery | DX: M65.312 Trigger thumb, left thumb (principal) | CPT/HCPCS: 26055 ==

== ENCOUNTER 2024-01-20 14:32 | Outpatient (AMB) | payer OTHER, SELFPAY ==
[2024-01-20 14:40] VITALS: BMI 36.8
--- NOTE | 2024-01-20 14:40 | MHC.OFFVIS ---
Vital Signs 01/20/24 14:40 Height 5 ft 2 in Weight 201 lb BMI 36.8 Handedness Right Intake Visit Reasons: PO LT trigger thumb 01/05/24 AR Intake Note: Nuvia is a 63 year old right hand dominant female who presents today for a post operative visit s/p Left thumb A1 amalia release DOS: 01/05/2024 w/ Dr Stewart. Patient reports she has swelling and pain at her incision site. She has been adding antibiotics on the site. Denies finger locking, numbness tingling, and drainage from wound. Incision feels had when palpitated. Explosive Ordnance Disposal Technician Required: Yes Explosive Ordnance Disposal Technician Language: Tennis Net Maker Name: [id number] Allergies aspirin [Aspirin] Allergy (Mild, Verified 01/20/24 14:42) ITCHY THROAT azithromycin Allergy (Unknown, Verified 01/20/24 14:42) Unknown naproxen Allergy (Unknown, Verified 01/20/24 14:42) Unknown simvastatin Allergy (Unknown, Verified 01/20/24 14:42) Unknown Fish Containing Products Allergy (Verified 01/20/24 14:42) Swelling onion [ONION] Adverse Reaction (Mild, Verified 01/20/24 14:42) RED FACE HPI HPI PO LT trigger thumb 01/05/24 AR: Details: Patient is a 63-year-old female who presents for postoperative evaluation status post left trigger thumb release, DOS 01/05/2024. Today, the patient reports that she has been experiencing some swelling and pain at the incision site, ever since she got the surgery site wet approximately 4 days after surgery while doing dishes. The patient states that she was previously prescribed antibiotics by primary care provider, and that this is help the swelling. Patient denies any discharge from the site. Patient does deny any further locking or catching of the left thumb. No other acute complaints or concerns this time. [facility] Medical History History of kidney stones COVID-19 COVID-19 COPD exacerbation Bronchitis Chest pain Acute asthma exacerbation Tubular adenoma of colon Vulvovaginitis Bronchitis Candidiasis of mouth and esophagus Yeast infection Papanicolaou smear for cervical cancer screening Preop pulmonary/respiratory exam Well woman exam with routine gynecological exam Renal calculi UTI (urinary tract infection) Allergic rhinitis Anxiety and depression Fibromyalgia HTN (hypertension) PTSD (post-traumatic stress disorder) Vertigo Diabetes Spondylosis of cervical region without myelopathy or radiculopathy Low vitamin D level Non-toxic multinodular goiter Hypothyroidism DVT (deep venous thrombosis) Cocaine abuse Surgical History History of esophagogastroduodenoscopy (EGD) H/O colonoscopy with polypectomy History of selective injection of anesthetic agent around lumbar nerve root Hx of right breast biopsy History of hysterectomy History of lithotripsy Family History Father No problems noted. 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 Neuro: Median, ulnar, radial nerves motor and sensory intact and sensation is normal to the tips of all digits. Vascular: Cap refill brisk ROM: Patient can make a fist and extend all the digits No Visible and palpable locking and catching of the left thumb Tender over the A1 amalia of the left thumb Skin: There is noted to be a focal area of swelling with what appears to be some underlying superficial purulence at the incision site over the A1 amalia of the left thumb No active drainage at this time No surrounding erythema No ecchymosis Psych: Appears grossly normal Affect normal Attitude cooperative Assessment & Plan Assessment & Plan (1) Trigger finger of left thumb: Code(s): M65.312 - Trigger thumb, left thumb Category: Medical Plan 1. Right trigger thumb status post trigger release DOS 01/05/2024 Patient is evaluated with Dr. Stewart, who was available to see the patient with me in clinic today, and a collaborative treatment plan was formed: At this time, patient's previous script for Augmentin is refilled, as this appears to be effective in reducing her infection symptoms, due to the lack of any erythema surrounding the site of focal purulence No purulence able to be expressed from the incision site today Patient was advised that she should soak the area in hot water to encourage any purulence that is under the skin to drain Patient is also advised she should keep the incision site clean and dry, but can wash it under the sink with soap and water Patient was amenable to this plan Patient will follow-up in 1 week for repeat wound check, sooner with any acute concerns Medications: New amoxicillin-pot clavulanate 875-125 mg 1 tab PO BID 14 tabs 0RF 7 days Coding Level of Care Code Global (48388) Diagnoses Trigger finger of left thumb M65.312
== END 2024-01-20 15:11 | disposition home or self-care (01) ==
PROVIDERS: PCP Nurse Practitioner Primary Care
DX: M65.312 Trigger thumb, left thumb (principal)
CPT/HCPCS: 99024

== ENCOUNTER → 2024-01-20 14:32 | Outpatient (BNVA) | payer OTHER, SELFPAY | PROVIDERS: PCP Nurse Practitioner Primary Care | DX: M79.645 Pain in left finger(s) (principal); Z47.89 Encounter for other orthopedic aftercare; Z98.890 Other specified postprocedural states | CPT/HCPCS: 99212 ==

== ENCOUNTER 2024-01-28 14:45 | Outpatient (AMB) | payer OTHER, SELFPAY ==
--- NOTE | 2024-01-28 14:50 | A.OFFVIS_ITS ---
Vital Signs 01/28/24 14:55 Height 5 ft 2 in Weight 201 lb BMI 36.8 Handedness Right Intake Visit Reasons: PO LT trigger thumb 01/05/24 AR Intake Note: Nuvia is a 63 year old right hand dominant female who presents today for a post operative visit s/p Left thumb A1 amalia release DOS: 01/05/2024 w/ Dr Stewart. Patient denies pain. States she can move her thumb now without any issue. Denies drainage, numbness and tingling. Java Application Engineer Required: Yes Java Application Engineer Language: Amplifier Mechanic Name: [id number] Allergies aspirin [Aspirin] Allergy (Mild, Verified 01/28/24 14:54) ITCHY THROAT azithromycin Allergy (Unknown, Verified 01/28/24 14:54) Unknown naproxen Allergy (Unknown, Verified 01/28/24 14:54) Unknown simvastatin Allergy (Unknown, Verified 01/28/24 14:54) Unknown Fish Containing Products Allergy (Verified 01/28/24 14:54) Swelling onion [ONION] Adverse Reaction (Mild, Verified 01/28/24 14:54) RED FACE HPI HPI PO LT trigger thumb 01/05/24 AR: Details: Patient is a 63-year-old female who presents for postoperative evaluation status post left trigger thumb release, DOS 01/05/2024. Today, the patient reports that she is experiencing no pain at the incision site, and that the redness, swelling, and discomfort she was experiencing there at previous visit has completely resolved. The patient also states she has no ongoing locking or catching of the left thumb. No other acute complaints or concerns at this time. [facility] Medical History History of kidney stones COVID-19 COVID-19 COPD exacerbation Bronchitis Chest pain Acute asthma exacerbation Tubular adenoma of colon Vulvovaginitis Bronchitis Candidiasis of mouth and esophagus Yeast infection Papanicolaou smear for cervical cancer screening Preop pulmonary/respiratory exam Well woman exam with routine gynecological exam Renal calculi UTI (urinary tract infection) Allergic rhinitis Anxiety and depression Fibromyalgia HTN (hypertension) PTSD (post-traumatic stress disorder) Vertigo Diabetes Spondylosis of cervical region without myelopathy or radiculopathy Low vitamin D level Non-toxic multinodular goiter Hypothyroidism DVT (deep venous thrombosis) Cocaine abuse Surgical History History of esophagogastroduodenoscopy (EGD) H/O colonoscopy with polypectomy History of selective injection of anesthetic agent around lumbar nerve root Hx of right breast biopsy History of hysterectomy History of lithotripsy Family History Father No problems noted. 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 Neuro: Median, ulnar, radial nerves motor and sensory intact and sensation is normal to the tips of all digits. Vascular: Cap refill brisk ROM: Patient can make a fist and extend all the digits No Visible and palpable locking and catching of the left thumb Tender over the A1 amalia of the left thumb Skin: The focal area of swelling with underlying purulence at previous visit has resolved today No active drainage at this time No surrounding erythema No ecchymosis Psych: Appears grossly normal Affect normal Attitude cooperative Assessment & Plan Assessment & Plan (1) Trigger finger of left thumb: Code(s): M65.312 - Trigger thumb, left thumb Category: Medical Plan 1. Right trigger thumb status post trigger release DOS 01/05/2024 Patient is evaluated with Dr. Stewart, who was available to see the patient with me in clinic today, and a collaborative treatment plan was formed: At this time, patient's symptoms concerning for potential surgical site infection at previous visit appear to have completely resolved with the antibiotic therapy over the last week No concerns for ongoing infection at this time Patient is informed that she will not require any acute follow-up with us, but should present if she has any concerns, such as redness, swelling, increasing pain, or any other symptoms in the left hand Patient was amenable to this plan Patient will follow-up as needed with any acute concerns Coding Level of Care Code Global (65487) Diagnoses Trigger finger of left thumb M65.312
[2024-01-28 14:55] VITALS: BMI 36.8
== END 2024-01-28 15:05 | disposition home or self-care (01) ==
PROVIDERS: PCP Nurse Practitioner Primary Care
DX: M65.312 Trigger thumb, left thumb (principal)
CPT/HCPCS: 99024

== ENCOUNTER → 2024-01-28 14:45 | Outpatient (BNVA) | payer OTHER, SELFPAY | PROVIDERS: PCP Nurse Practitioner Primary Care | DX: Z47.89 Encounter for other orthopedic aftercare (principal); Z98.890 Other specified postprocedural states | CPT/HCPCS: 99212 ==

== ENCOUNTER 2024-02-03 13:57 | Outpatient (AMB) | payer OTHER, SELFPAY ==
[2024-02-03 14:11] VITALS: BP 106/77; PULSE 88; O2SAT 95; BMI 36.9
--- NOTE | 2024-02-03 14:11 | A.OFFVIS_ITS ---
Vital Signs 02/03/24 14:11 Height 5 ft 2 in Weight 202 lb BMI 36.9 BP 106/77 Blood Pressure Location Rt brachial Position Sitting Pulse 88 Pulse Source Doppler Pulse Oximetry (%) 95 Oxygen Delivery Method Room Air Intake Visit Reasons: Asthma Excelsior 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 Required: Yes Excelsior 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 Name: Samantha PalaciosGaryLesleeGaryEstefania Allergies aspirin [Aspirin] Allergy (Mild, Verified 02/03/24 14:16) ITCHY THROAT azithromycin Allergy (Unknown, Verified 02/03/24 14:16) Unknown naproxen Allergy (Unknown, Verified 02/03/24 14:16) Unknown simvastatin Allergy (Unknown, Verified 02/03/24 14:16) Unknown Fish Containing Products Allergy (Verified 02/03/24 14:16) Swelling onion [ONION] Adverse Reaction (Mild, Verified 02/03/24 14:16) RED FACE HPI HPI Asthma: Details: 63-year-old lady, former 30+ pack-year smoker, quit 2014 followed for severe persistent allergic asthma/COPD overlap syndrome and environmental allergies. She continues on Wixela, Spiriva, albuterol MDI, and Xolair with good symptomatic control. Today she complains of an acute exacerbation symptomatic with productive cough, but no wheezing. [facility] Medical History History of kidney stones COVID-19 COVID-19 COPD exacerbation Bronchitis Chest pain Acute asthma exacerbation Tubular adenoma of colon Vulvovaginitis Bronchitis Candidiasis of mouth and esophagus Yeast infection Papanicolaou smear for cervical cancer screening Preop pulmonary/respiratory exam Well woman exam with routine gynecological exam Renal calculi UTI (urinary tract infection) Allergic rhinitis Anxiety and depression Fibromyalgia HTN (hypertension) PTSD (post-traumatic stress disorder) Vertigo Diabetes Spondylosis of cervical region without myelopathy or radiculopathy Low vitamin D level Non-toxic multinodular goiter Hypothyroidism DVT (deep venous thrombosis) Cocaine abuse Surgical History History of esophagogastroduodenoscopy (EGD) H/O colonoscopy with polypectomy History of selective injection of anesthetic agent around lumbar nerve root Hx of right breast biopsy History of hysterectomy History of lithotripsy Family History Father No problems noted. 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 Female Reproductive History Menstrual Age of Menarche: 10 Review of Systems Const Denies daytime sleepiness, Denies excessive sweating, Denies fatigue, Denies fever(s), Denies lethargy, Denies malaise, Denies night sweats, Denies snoring and Denies weight loss Eyes Denies blurry vision and Denies itchy eyes ENT Denies nasal congestion, Denies post nasal drip, Denies sinus pain, Denies sinus pressure and Denies other ( Thrush) Card Denies chest pain, Denies pedal edema, Denies dyspnea, Denies orthopnea and Denies paroxysmal nocturnal dyspnea Resp Reports cough, Denies hemoptysis, Reports excessive phlegm production, Denies dyspnea, Denies snoring and Denies wheezing GI Denies abdominal pain and Denies heartburn Musc Denies myalgias, Denies arthralgias and Denies joint swelling Skin/Breast Denies rash Neuro Denies memory loss and Denies seizure-like activity Psych Denies abnormal sleep pattern, Denies anxiety and Denies memory loss Endo Denies excessive sweating, Denies fatigue and Denies heat intolerance Bruno/Lymph Denies easy bruising Aller/Immun Denies itchy eyes, Denies seasonal rhinorrhea and Denies wheezing Physical Exam Vital Signs: Last Vital Signs Pulse 88 02/03/24 14:11 BP 106/77 02/03/24 14:11 Pulse Ox 95 02/03/24 14:11 Oxygen Delivery Method Room Air 02/03/24 14:11 BMI result Body Mass Index 36.9 Const General: no acute distress and alert Nutritional Appearance: not obese Orientation/consciousness: Other orientation findings ( oriented) HEENT Head: Yes atraumatic Eyes General: appearance normal, both eyes and all related structures Sclerae: sclerae normal EOM: EOMs intact bilaterally Neck Neck: Yes supple Lymphatic: no lymphadenopathy noted Resp Effort & Inspection: normal respiratory effort and no use of accessory muscles Auscultation: clear to auscultation bilaterally Cardio Rate: regular rate Rhythm: regular rhythm Heart sounds: no gallops, no murmurs and no rubs Skin General skin exam: other ( warm) Extrem General: No clubbing, No cyanosis and No edema Assessment & Plan Assessment & Plan (1) Asthma-COPD overlap syndrome: Code(s): J44.89 - Other specified chronic obstructive pulmonary disease Category: Medical Plan: Well controlled on current regimen of Xolair, Advair, Combivent, and albuterol MDI. Continue current regimen. Will treat acute bronchitic exacerbation with a course of Levaquin. (2) Environmental allergies: Code(s): Z91.09 - Other allergy status, other than to drugs and biological substances Category: Medical Plan: Well controlled on Xolair. Continue current regimen. Medications: New levofloxacin 750 mg PO DAILY 10 tabs 0RF Discontinued doxycycline monohydrate Discontinued Reason: Doctor's Order 100 mg PO BID 10 caps 0RF Coding Level of Care Code Est Pt Level 4 (13981) Complex EM visit Add On G2211 Diagnoses Asthma-COPD overlap syndrome J44.89 Environmental allergies Z91.09
== END 2024-02-03 14:28 | disposition home or self-care (01) ==
PROVIDERS: PCP Nurse Practitioner Primary Care; Visit Provider Internal Medicine Pulmonary Disease
DX: J44.89 Other specified chronic obstructive pulmonary disease (principal); Z91.09 Other allergy status, other than to drugs and biological substances
CPT/HCPCS: 99214; G2211

== ENCOUNTER → 2024-02-03 13:57 | Outpatient (BNVA) | payer OTHER, SELFPAY | PROVIDERS: PCP Nurse Practitioner Primary Care; Visit Provider Internal Medicine Pulmonary Disease | DX: J44.89 Other specified chronic obstructive pulmonary disease (principal); Z91.09 Other allergy status, other than to drugs and biological substances | CPT/HCPCS: 99212 ==

== ENCOUNTER 2024-02-19 13:18 | Outpatient (AMB) | payer OTHER, SELFPAY ==
--- NOTE | 2024-02-19 13:23 | MHC.OFFVIS ---
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 annual exam/30 mins Bicycle Technician Required: Yes Bicycle Technician Language: Full Stack Net Developer Services: Bicycle Technician Present Bicycle Technician Name: Virginie Information Interpreted: non-clinical & clinical Sales Enablement Specialist: Sales Enablement Specialist Present (Virginie) Allergies aspirin [Aspirin] Allergy (Mild, Verified 02/19/24 13:25) ITCHY THROAT azithromycin Allergy (Unknown, Verified 02/19/24 13:25) Unknown naproxen Allergy (Unknown, Verified 02/19/24 13:25) Unknown simvastatin Allergy (Unknown, Verified 02/19/24 13:25) Unknown Fish Containing Products Allergy (Verified 02/19/24 13:25) Swelling onion [ONION] Adverse Reaction (Mild, Verified 02/19/24 13:25) RED FACE HPI Comments Details: She is a postmenopausal woman presenting for her annual director advanced examination. She is doing well with director advanced concerns: itching when using detergent, or when her blood sugar is elevated she becomes symptomatic, uses the prescription for a few days and her symptoms resolved. Currently not sexually activity. History of hysterectomy due to heavy menstrual bleeding. Attempting to eat a healthy diet, stays active with walking. Last pap smear; 2020. Last mammogram; 2023. Colonoscopy is UTD. Denies any family history of breast, ovarian or colon cancer. [facility] Medical History (Updated 02/19/24 @ 13:46 by Monica Lozano CNM) Trochanteric bursitis of right hip Patellofemoral arthritis of left knee Dry mouth Environmental allergies Type 2 diabetes mellitus with hyperglycemia Menopausal state Type 2 diabetes mellitus MOCK (dyspnea on exertion) Kidney stone on left side Leg pain Tear of medial meniscus of left knee Abnormal finding on ultrasound Abnormal ultrasound of kidney Bilateral renal cysts Severe persistent asthma Asthma Bilateral hand pain Bilateral knee pain Carpal tunnel syndrome of right wrist Cubital tunnel syndrome on right Renal calculi UTI (urinary tract infection) History of kidney stones COVID-19 COVID-19 COPD exacerbation Bronchitis Chest pain Acute asthma exacerbation Tubular adenoma of colon Vulvovaginitis Bronchitis Candidiasis of mouth and esophagus Yeast infection Papanicolaou smear for cervical cancer screening Preop pulmonary/respiratory exam Allergic rhinitis Anxiety and depression Fibromyalgia HTN (hypertension) PTSD (post-traumatic stress disorder) Vertigo Diabetes Spondylosis of cervical region without myelopathy or radiculopathy Low vitamin D level Non-toxic multinodular goiter Hypothyroidism DVT (deep venous thrombosis) Cocaine abuse Surgical History History of esophagogastroduodenoscopy (EGD) H/O colonoscopy with polypectomy History of selective injection of anesthetic agent around lumbar nerve root Hx of right breast biopsy History of hysterectomy History of lithotripsy Family History Father No problems noted. 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 Female Reproductive History Menstrual Age of Menarche: 10 Menopause type: surgical Total pregnancies: 3 Full term: 3 Number of Living Children: 3 Date of last pap smear: 05/09/20 (neg pap and hpv) Date of Mammogram: 03/20/23 (Birad 2) Review of Systems Const All systems reviewed & are unremarkable except as noted in HPI and below Reports as per HPI Eyes Reports no additional complaints ENT Reports no additional complaints Card Reports no additional complaints Resp Reports no additional complaints GI Reports as per HPI and Reports no additional complaints Reports as per HPI Musc Reports no additional complaints Skin/Breast Reports as per HPI Neuro Reports no additional complaints Psych Reports no additional complaints Endo Reports no additional complaints Bruno/Lymph Reports no additional complaints Aller/Immun Reports no additional complaints Physical Exam Vital Signs: Last Vital Signs BP 120/74 02/19/24 13:25 BMI result Body Mass Index 36.9 Const General: cooperative, healthy appearing, no acute distress, well developed and alert Orientation/consciousness: patient oriented x3 HEENT Head: Yes normal to inspection Eyes General: appearance normal, both eyes and all related structures Neck Neck: Yes normal visual inspection Thyroid: Thyroid normal Chest Chest palpation & inspection: normal inspection of the chest and other (no puckering, dimpling, peau de orange, retraction, discharge, masses) Breast/axilla inspection: normal inspection of the breasts Breast/axilla palpation: normal palpation of the breasts Resp Effort & Inspection: normal respiratory effort GI Inspection: Yes normal to inspection Palpation (GI): Soft to palpation Rectal Exam - Female: deferred General: Yes bladder normal to palpation External Female Exam: normal external appearance and normal appearance of the urethra Speculum Exam - Vagina: normal appearance of the vagina, normal palpation, abnormal vaginal discharge yellow and vagina atrophic (moderate) Speculum Exam - Cervix: Cervix absent (vag cuff no lesions or nodules) Bimanual exam- vagina & uterus: normal bimanual exam, normal palpation, bladder normal to palpation and uterus absent Bimanual Exam- Adnexa, other: no masses Skin General skin exam: no rashes or lesions noted Rashes: no rashes Neuro General: patient oriented x3 Cognition (Neuro): normal cognition Extrem General: Yes normal to inspection Psych Attitude: cooperative Thought process: Normal thought process present Assessment & Plan Assessment & Plan (1) Well woman exam with routine gynecological exam: Code(s): Z01.419 - Encounter for gynecological examination (general) (routine) without abnormal findings Category: Medical (2) Vaginal discharge: Code(s): N89.8 - Other specified noninflammatory disorders of vagina Plan Discussed: Current recommendations for pap smears per ASCCP guidelines. Breast awareness, periodic self breast exams and yearly mammogram. Mammogram ordered. Maintain a healthy lifestyle, well balanced diet including Calcium 1,200 mg and Vitamin D 600 IU daily, and routine exercise. BV panel sent due to yellow discharge and occasional itching. Await results for plan of care. Use mild on sent it soap. Patient verbalizes understanding and agrees to the plan of care. She was given opportunity to ask questions and all questions were answered to the best of my ability. RTO in 1 year for annual director advanced exam. This note is constructed using voice recognition software. While every effort has been made to ensure accuracy, network infrastructure architect errors may have been included. Orders: Orders Bacterial Vaginosis Panel Today N89.8 - Other specified noninflammatory disorders of vagina MM tomosynthesis screening BI Today Z12.31 - Encounter for screening mammogram for malignant neoplasm of breast Coding Level of Care Code Est Pt Prev Care 40-64y(37170) Diagnoses Well woman exam with routine gynecological exam Z01.419 Vaginal discharge N89.8
[2024-02-19 13:25] VITALS: BP 120/74; BMI 36.9
== END 2024-02-19 14:08 | disposition home or self-care (01) ==
LOC: HO.HWS 13:18
PROVIDERS: PCP Nurse Practitioner Primary Care; Visit Provider Advanced Practice Midwife
DX: Z01.419 Encounter for gynecological examination (general) (routine) without abnormal findings (principal); N89.8 Other specified noninflammatory disorders of vagina
CPT/HCPCS: 99396; 99459

== ENCOUNTER 2024-02-19 13:18 | Outpatient (REF) | payer OTHER, SELFPAY ==
[2024-02-20 11:32] LABS: Bacterial Vaginosis PCR NEGATIVE (Negative); Candida Group PCR NOT DETECTED (Not Detect); Candida glab krusei PCR NOT DETECTED (Not Detect); Trichomonas vaginalis PCR NOT DETECTED (Not Detect)
== END 2024-02-19 13:19 | disposition home or self-care (01) ==
LOC: HO.LAB 13:18
PROVIDERS: PCP Nurse Practitioner Primary Care; Visit Provider Advanced Practice Midwife
DX: Z01.419 Encounter for gynecological examination (general) (routine) without abnormal findings (principal); N89.8 Other specified noninflammatory disorders of vagina
CPT/HCPCS: 81515; 99396; 99459

== ENCOUNTER 2024-02-29 11:59 | Emergency (ER) | payer OTHER, SELFPAY ==
--- NOTE | ~2024-02-29 | XR_ITS ---
CLINICAL HISTORY: cp Chest Radiograph Comparison: None Findings: No cardiomegaly. Normal mediastinal contours. No pneumothorax. Opacity in the right lower lung zone is favored to be secondary to artifact. No pleural effusion. Normal upper abdomen. No acute fracture. Impression: No acute findings. This document has been electronically signed by: Ligia Argueta MD on 02/29/2024 13:36:48
[2024-02-29 12:13] VITALS: BP 149/85; PULSE 93; RESP 18; TEMP 36.6; O2SAT 96; BMI 34.7
--- NOTE | 2024-02-29 12:23 | ECG_ITS ---
Test Reason : DYSPNEA Blood Pressure : */* mmHG Vent. Rate : 89 BPM Atrial Rate : 89 BPM P-R Int : 224 ms QRS Dur : 106 ms QT Int : 394 ms P-R-T Axes : 53 -52 50 degrees QTcB Int : 479 ms Sinus rhythm with 1st degree A-V block Left anterior fascicular block Minimal voltage criteria for LVH, may be normal variant ( Bala product ) Abnormal ECG When compared with ECG of 28-Dec-2023 11:03, No significant change was found Referred By: Kourtney Jones Electronically Signed By: Agus Denise
--- NOTE | 2024-02-29 12:26 | ED_ITS ---
HPI - SOB/Dyspnea General Chief Complaint: Dyspnea Stated Complaint: ASTHMA EXAC,NEB GIVEN PER EMS Time Seen by Provider: 02/29/24 12:05 History of Present Illness HPI Narrative: Patient is a 63-year-old female with a history of diabetes. Presents today with coughing congestion upper respiratory symptoms. Also feeling some tightness in her chest when she coughs. Patient had had a skin rash over the back area. She has been given antibiotics for the last 4 days seems like the symptom is improved. The same type of lesion is also present in her vulva area. Patient denies any vaginal discharge. Nose other systemic complaints. He is vaccinated for COVID. Not O2 dependent baseline. Has a history of asthma. No history of congestive heart failure. No history of MS. positive history of smoking. Related Data Home Medications ?Medication ?Instructions ?Recorded ?Confirmed calcium 600 mg (as 1 tab PO BID 11/20/19 11/28/23 carbonate)-vitamin D3 10 mcg (400 unit) tablet potassium chloride 20 mEq 20 meq PO BID 11/20/19 11/28/23 tablet,extended release(part/cryst) zolpidem 10 mg tablet 10 mg PO BEDTIME PRN Insomnia 11/20/19 11/28/23 clonazepam 1 mg tablet (Klonopin) 1 mg PO DAILY 03/08/20 11/28/23 montelukast 10 mg tablet 10 mg PO BEDTIME 03/08/20 11/28/23 multivitamin-ferrous 1 tab PO DAILY 07/06/21 11/28/23 fumarate-folic acid 18 mg-400 mcg tablet (Certavite-Antioxidant) fluoride (sodium) 1.1 % dental appl PO 10/16/21 11/28/23 cream (SF 5000 Plus) tramadol 50 mg tablet 50 mg PO BID PRN Pain 01/31/22 11/28/23 diclofenac sodium 1 % topical gel g topical 05/07/22 11/28/23 acetaminophen 325 mg tablet 325 mg PO PRN pain 06/11/22 11/28/23 amlodipine 10 mg tablet 10 mg PO DAILY 07/09/23 11/28/23 atorvastatin 80 mg tablet 80 mg PO BEDTIME 07/09/23 11/28/23 cetirizine 10 mg tablet 10 mg PO QPM 07/09/23 11/28/23 enalapril maleate 20 mg tablet 20 mg PO DAILY 07/09/23 11/28/23 buspirone 15 mg tablet 15 mg PO TID 12/18/23 insulin lispro 100 unit/mL 4 unit subcut TID PRN 12/18/23 subcutaneous pen (Humalog KwikPen (U-100) Insulin) meclizine 25 mg tablet mg PO 12/18/23 Previous Rx's ?Medication ?Instructions ?Recorded leg brace (Knee Support Brace) #2 ea 03/08/20 blood-glucose meter (FreeStyle #1 ea 02/28/22 Flash System kit) pen needle, diabetic 32 gauge x ##100 10/01/22 (UltiCare Pen Needle) fluticasone 250 mcg-salmeterol 50 1 ea inhalation BID 30 days #60 ea 10/02/22 mcg/dose blistr powdr for inhalation lidocaine 5 % topical patch 1 patch topical DAILY #15 ea 10/20/22 gabapentin 400 mg capsule 400 mg PO BEDTIME #30 caps 01/01/23 hydrocortisone 2.5 % topical cream 1 appl HI BID hemorrhoids #30 grams 02/04/23 with perineal applicator (Proctosol HC) levothyroxine 75 mcg tablet 75 mcg PO QAM #90 tabs 04/14/23 omalizumab 150 mg subcutaneous 300 mg subcut Q2W 28 days #4 ea 05/19/23 solution clotrimazole-betamethasone 1 1 appl topical BID itching 7 days 06/12/23 %-0.05 % topical cream #45 grams hydrocodone 5 mg-acetaminophen 325 1 tab PO Q8H PRN pain 7 days #21 06/26/23 mg tablet tabs acetaminophen 500 mg tablet 1,000 mg (2 x 500 mg) PO Q6H PRN 09/04/23 (Tylenol Extra Strength) fever or pain #20 tabs ibuprofen 400 mg tablet 400 mg PO TID PRN fever or pain 09/04/23 #30 tabs lorazepam 1 mg tablet (Ativan) 1 mg PO TID PRN anxiety #10 tabs 09/04/23 dextrose 40 % oral gel (Glutose-15) 15 g PO DIRECTED for 10/10/23 hypoglycemia #112.5 grams blood sugar diagnostic (FreeStyle #100 strips 10/13/23 Lite Strips) lancets 33 gauge (TRUEplus Lancets) #100 ea 10/13/23 flash glucose scanning reader #1 ea 10/16/23 (FreeStyle Jalil 2 [place]) metoclopramide HCl 5 mg tablet 5 mg PO TID #90 tabs 10/24/23 (Reglan) plecanatide 3 mg tablet (Trulance) 3 mg PO DAILY #30 tabs 10/24/23 sennosides 8.6 mg tablet (senna) 17.2 mg (2 x 8.6 mg) PO BEDTIME 10/24/23 constipation #60 tabs Lactobacil rhamnosus GG 10 billion 1 cap PO DAILY #30 caps 11/07/23 cell-inulin 200 mg sprinkle capsule ([facility]) albuterol sulfate 90 mcg/actuation 2 puff inhalation Q4-6H PRN for 11/17/23 aerosol inhaler (Ventolin HFA) wheezing #18 grams docusate sodium 100 mg capsule 100 mg PO BID #60 caps 11/20/23 (Stool Softener) omeprazole 20 mg capsule,delayed 20 mg PO BID #60 caps 11/20/23 release magnesium citrate 150 ml PO DAILY #300 mL 11/21/23 ipratropium 20 mcg-albuterol 100 1 puff PO QID #4 grams 11/26/23 mcg/actuation mist for inhalation (Combivent Respimat) semaglutide 1 mg/dose (4 mg/3 mL) 1 mg (0.75 mL) subcut QWEEK #3 mL 12/04/23 subcutaneous pen injector (Ozempic) hydrocodone 5 mg-acetaminophen 325 1 tab PO Q4-6H PRN pain #5 tabs 01/05/24 mg tablet amoxicillin 875 mg-potassium 1 tab PO BID 10 days #20 tabs 01/14/24 clavulanate 125 mg tablet prednisone 20 mg tablet 40 mg (2 x 20 mg) PO DAILY #10 tabs 01/14/24 pyridoxine (vitamin B6) 100 mg 100 mg PO DAILY #90 tabs 01/19/24 tablet amoxicillin 875 mg-potassium 1 tab PO BID 7 days #14 tabs 01/20/24 clavulanate 125 mg tablet levofloxacin 750 mg tablet 750 mg PO DAILY #10 tabs 02/03/24 tiotropium bromide 18 mcg capsule 1 cap inhalation DAILY #30 caps 02/09/24 with inhalation device (Spiriva with HandiHaler) flash glucose sensor (FreeStyle #2 ea 02/16/24 Jalil 2 Sensor kit) Allergies Allergy/AdvReac Type Severity Reaction Status Date / Time aspirin [Aspirin] Allergy Mild ITCHY Verified 02/29/24 12:22 THROAT azithromycin Allergy Unknown Unknown Verified 02/29/24 12:22 naproxen Allergy Unknown Unknown Verified 02/29/24 12:22 simvastatin Allergy Unknown Unknown Verified 02/29/24 12:22 Fish Containing Products Allergy Swelling Verified 02/29/24 12:22 onion [ONION] AdvReac Mild RED FACE Verified 02/29/24 12:22 Review of Systems 2 Review of Systems: Positive coughing upper respiratory symptoms Yes all other systems are reviewed and are negative PMFSH Past Medical History Attestation statement: The following information was validated with the patient. Medical History Trochanteric bursitis of right hip Patellofemoral arthritis of left knee Dry mouth Environmental allergies Type 2 diabetes mellitus with hyperglycemia Menopausal state Type 2 diabetes mellitus MOCK (dyspnea on exertion) Kidney stone on left side Leg pain Tear of medial meniscus of left knee Abnormal finding on ultrasound Abnormal ultrasound of kidney Bilateral renal cysts Severe persistent asthma Asthma Bilateral hand pain Bilateral knee pain Carpal tunnel syndrome of right wrist Cubital tunnel syndrome on right Renal calculi UTI (urinary tract infection) History of kidney stones COVID-19 COVID-19 COPD exacerbation Bronchitis Chest pain Acute asthma exacerbation Tubular adenoma of colon Vulvovaginitis Bronchitis Candidiasis of mouth and esophagus Yeast infection Papanicolaou smear for cervical cancer screening Preop pulmonary/respiratory exam Allergic rhinitis Anxiety and depression Fibromyalgia HTN (hypertension) PTSD (post-traumatic stress disorder) Vertigo Diabetes Spondylosis of cervical region without myelopathy or radiculopathy Low vitamin D level Non-toxic multinodular goiter Hypothyroidism DVT (deep venous thrombosis) Cocaine abuse Surgical History History of esophagogastroduodenoscopy (EGD) H/O colonoscopy with polypectomy History of selective injection of anesthetic agent around lumbar nerve root Hx of right breast biopsy History of hysterectomy History of lithotripsy Family History Family History Father No problems noted. 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 Oriented X3. No acute distress. Eyes: Pupils equal, round and reactive to light. ENT: Pharynx normal. Neck: Normal inspection. Neck supple. No lymph nodes noted. No crepitus CVS: Normal heart rate and rhythm. Pulses normal. Normal S1 and S2 Respiratory: No respiratory distress. Breath sounds normal. Positive expiratory wheezes noted. Abdomen: Soft and nontender. No rigidity. No distention. good BS x4 Skin: Skin warm and dry. Normal skin color. Normal skin turgor. Extremities: No lower extremity edema. Neurovascular intact to all extremities. No Lacerations. No Rash Neuro: Oriented X 3. No motor deficit. No sensory deficit. Moving all extermities. No slurred speech Medications Administered Discontinued Medications Generic Name Dose Route Start Last Admin Trade Name Freq PRN Reason Stop Dose Admin Albuterol Sulfate 2.5 mg/ 0 mg 02/29/24 12:26 02/29/24 12:35 Albuterol/Ipratropium 3 ml INHALE 02/29/24 12:27 5 dose ONCE ONE Administration Medical Decision Making Medical Decision Making MDM Narrative: Patient given neb treatment in the emergency department was already given a dose of steroids prior to arrival. O2 sats normal, speaking in complete sentences feels symptomatically much improved. COVID flu RSV were all negative. Patient's chest x-ray showed no focal infiltrate. Patient's has possible cellulitis over the back, an area that may have been a draining abscess. Patient stated there was pus that was draining. She has close follow-up in 2 days with her primary physician. Currently on likely Keflex and Bactrim as patient is on 2 antibiotics. There is no fever no chills otherwise well- appearing will have patient continue the antibiotics. Close follow-up advised. Differential Diagnosis Differential Diagnoses: The differential diagnosis associated with the presentation includes Cellulitis, draining abscess, asthma/COPD Admission/Observation Consideration of admission/observation: Escalation of care including admission/observation considered Lab Data MDM Lab Attestation statement: I reviewed the patient's lab results. 02/29/24 12:37 02/29/24 12:37 Labs: Lab Results 02/29/24 02/29/24 Range/Units 12:36 12:37 WBC 7.5 (4.8-10.8) X10*3/uL RBC 4.38 (4.20-5.50) X10*6/uL Hgb 13.7 (12.0-16.0) g/dl Hct 41.4 (37.0-47.0) % MCV 94.5 (80.0-98.0) fL MCH 31.3 (27.0-33.0) pg MCHC 33.1 (31.0-35.0) g/dl RDW 13.5 (11.0-16.0) % Plt Count 317 (160-400) X10*3/uL MPV 9.0 L (9.4-12.3) fL Immature Gran % (Auto) 0.3 (0.0-0.4) % Neut % (Auto) 47.4 (45-73) % Lymph % (Auto) 43.6 H (20-40) % Parke % (Auto) 6.6 (2-11) % Eos % (Auto) 1.6 (0-4) % Baso % (Auto) 0.5 (0-2) % Lymph # (Auto) 3.3 (1.2-4.9) X10*3/uL Parke # (Auto) 0.5 (0.1-1.2) X10*3/uL Eos # (Auto) 0.1 (0.0-0.4) X10*3/uL Baso # (Auto) 0.0 (0.0-0.2) X10*3/uL Abs Immat Gran (auto) 0.02 (0.00-0.03) X10*3/uL Absolute Neuts (auto) 3.6 (2.0-8.3) x10*3/uL Absolute Nucleated RBC 0.000 (0.0-0.012) X10*3/uL Nucleated RBC % (auto) 0.0 (0.0-0.2) /100WBC Sodium 141 (135-145) mmol/L Potassium 4.0 D (3.3-5.1) mmol/L Chloride 112 H (96-108) mmol/L Carbon Dioxide 23 (22-29) mmol/L Anion Gap 10 L (12-20) BUN 9 (9-16) mg/dL Creatinine 0.92 (0.5-1.4) mg/dL Estim Creat Clear Calc 68.6 Estimated GFR > 60 Random Glucose 175 H (60-115) mg/dL Calcium 9.3 (8.4-10.2) mg/dL Troponin I High Sens < 2.7 (<3.5-17.0) ng/L Influenza Type A (PCR) NEGATIVE (Negative) Influenza Type B (PCR) NEGATIVE (Negative) RSV RNA Qual (PCR) NEGATIVE (Negative) SARS-CoV-2 RNA (RT-PCR) NEGATIVE (Negative) Independent Interpretation I performed an independent interpretation of an: EKG (EKG showed a sinus rhythm heart rate is 80 there is a first-degree AV block. QRS is normal there is no ST segment elevation) and Plain X-Ray (Chest x-ray showed no focal infiltrate) Radiology Impression Discussion of test interpretation with radiology: I have reviewed the radiologist's reading. External Record Review External record reviewed: Inpatient record Discharge Plan Discharge Clinical Impression: Cellulitis, Asthma Patient Disposition: Home, Self-Care Instructions: Asthma (ED), Cellulitis (DC) Prescriptions: No Action (DME) blood-glucose meter [FreeStyle Flash System] Kit See Rx Instructions .Route Qty: 1 0RF Rx Instructions: As directed (DME) pen needle, diabetic [UltiCare Pen Needle] 32 gauge x 5/32 needle See Rx Instructions .ROUTE .COMPLEX Qty: 100 5RF Dose Instruction: USE FOUR TIMES DAILY Rx Instructions: USE FOUR TIMES DAILY fluticasone propion-salmeterol 250-50 mcg/dose blister with device 1 ea inhalation BID 30 Days Qty: 60 6RF gabapentin 400 mg capsule 400 mg PO BEDTIME Qty: 30 4RF hydrocortisone [Proctosol HC] 2.5 % cream with perineal applicator 1 appl HI BID Qty: 30 6RF Rx Instructions: BE SURE TO INCLUDE RECTAL APPICATOR!! levothyroxine 75 mcg tablet 75 mcg PO QAM Qty: 90 4RF omalizumab 150 mg recon soln 300 mg subcut Q2W 28 Days Qty: 4 11RF Rx Instructions: requires multiple injection sites; do not exceed 150 mg per injection site dextrose [Glutose-15] 40 % gel 15 g PO DIRECTED Qty: 112.5 5RF (DME) lancets [TRUEplus Lancets] 33 gauge misc See Rx Instructions .ROUTE .COMPLEX Qty: 100 5RF Dose Instruction: TEST BLOOD SUGAR FOUR TIMES DAILY Rx Instructions: TEST BLOOD SUGAR FOUR TIMES DAILY (DME) FreeStyle Lite Strips Strip See Rx Instructions .ROUTE .COMPLEX Qty: 100 5RF Dose Instruction: TEST BLOOD SUGAR FOUR TIMES DAILY Rx Instructions: TEST BLOOD SUGAR FOUR TIMES DAILY (DME) FreeStyle Jalil 2 [place] Misc See Rx Instructions .Route Qty: 1 0RF Rx Instructions: As directed [facility] 10 billion cell -200 mg capsule, sprinkle 1 cap PO DAILY Qty: 30 6RF albuterol sulfate [Ventolin HFA] 90 mcg/actuation HFA aerosol inhaler 2 puff inhalation Q4-6H PRN (Reason: for wheezing) Qty: 18 6RF docusate sodium [Stool Softener] 100 mg capsule 100 mg PO BID Qty: 60 6RF omeprazole 20 mg capsule,delayed release(DR/EC) 20 mg PO BID Qty: 60 6RF magnesium citrate Solution 150 ml PO DAILY Qty: 300 0RF Rx Instructions: Drink a half a bottle and wait half an hour, if no BM then complete the other. Repeat with the next bottle if no bowel movement Combivent Respimat 20-100 mcg/actuation mist 1 puff PO QID Qty: 4 3RF Ozempic 1 mg/dose (4 mg/3 mL) pen injector 1 mg subcut QWEEK Qty: 3 6RF prednisone 20 mg tablet 40 mg PO DAILY Qty: 10 0RF amoxicillin-pot clavulanate 875-125 mg tablet 1 tab PO BID 10 Days Qty: 20 0RF pyridoxine (vitamin B6) 100 mg tablet 100 mg PO DAILY Qty: 90 3RF Spiriva with HandiHaler 18 mcg capsule, w/inhalation device 1 cap inhalation DAILY Qty: 30 6RF (DME) FreeStyle Jalil 2 Sensor Kit See Rx Instructions .Route Qty: 2 11RF Rx Instructions: As directed change every 14 days Certavite-Antioxidant 18-400 mg-mcg Tablet 1 tab PO DAILY acetaminophen [Tylenol Extra Strength] 500 mg tablet 1,000 mg PO Q6H PRN (Reason: fever or pain) Qty: 20 0RF ibuprofen 400 mg tablet 400 mg PO TID PRN (Reason: fever or pain) Qty: 30 0RF lorazepam [Ativan] 1 mg tablet 1 mg PO TID PRN (Reason: anxiety) Qty: 10 0RF Rx Instructions: Patient may request partial fill hydrocodone-acetaminophen 5-325 mg tablet 1 tab PO Q4-6H PRN (Reason: pain) Qty: 5 0RF Rx Instructions: Partial Fill upon patient request. lidocaine 5 % adhesive patch,medicated 1 patch topical DAILY Qty: 15 0RF Rx Instructions: leave on most painful area for up to 12 hrs atorvastatin 80 mg tablet 80 mg PO BEDTIME cetirizine 10 mg tablet 10 mg PO QPM enalapril maleate 20 mg tablet 20 mg PO DAILY amlodipine 10 mg tablet 10 mg PO DAILY montelukast 10 mg tablet 10 mg PO BEDTIME clonazepam [Klonopin] 1 mg tablet 1 mg PO DAILY Rx Instructions: administer 30 minutes before bedtime (DME) Knee Support Brace [facility] See Rx Instructions .ROUTE .MEDSUPPLY Qty: 2 0RF Rx Instructions: As directed zolpidem 10 mg tablet 10 mg PO BEDTIME PRN (Reason: Insomnia) calcium carbonate-vitamin D3 600 mg(1,500mg) -400 unit tablet 1 tab PO BID potassium chloride 20 mEq tablet,ER particles/crystals 20 meq PO BID acetaminophen 325 mg tablet 325 mg PO PRN (Reason: pain) fluoride (sodium) [SF 5000 Plus] 1.1 % cream PO tramadol 50 mg tablet 50 mg PO BID PRN (Reason: Pain) diclofenac sodium 1 % gel topical metoclopramide HCl [Reglan] 5 mg tablet 5 mg PO TID Qty: 90 6RF Trulance 3 mg tablet 3 mg PO DAILY Qty: 30 6RF sennosides [senna] 8.6 mg tablet 17.2 mg PO BEDTIME Qty: 60 6RF hydrocodone-acetaminophen 5-325 mg tablet 1 tab PO Q8H PRN (Reason: pain) 7 Days Qty: 21 0RF Rx Instructions: Partial Fill upon patient request. levofloxacin 750 mg tablet 750 mg PO DAILY Qty: 10 0RF insulin lispro [Humalog KwikPen Insulin] 100 unit/mL insulin pen 4 unit subcut TID PRN Rx Instructions: use as directed with meals buspirone 15 mg tablet 15 mg PO TID meclizine 25 mg tablet PO clotrimazole-betamethasone 1-0.05 % cream 1 appl topical BID 7 Days Qty: 45 0RF Rx Instructions: apply externally a thin coat to the area amoxicillin-pot clavulanate 875-125 mg tablet 1 tab PO BID 7 Days Qty: 14 0RF Referrals: Sariah Vickers NP [Primary Care Provider] - 03/03/24 Print Language: Sinhala
[2024-02-29 12:27] VITALS: PULSE 97; RESP 16; O2SAT 96
[2024-02-29] MEDS: Albuterol Sulfate 2.5 MG, Albuterol/Iprat 2.5/0.5MG 3 ML 3 ML INHALE (12:35)
[2024-02-29 12:41] LABS: MANUAL DIFF FLAG NO
[2024-02-29 12:44] LABS: Basophils Percent Auto 0.5 % (0-2); Eosinophils Absolute Auto 0.1 X10*3/uL (0.0-0.4); Eosinophils Percent Auto 1.6 % (0-4); Hematocrit 41.4 % (37.0-47.0); Hemoglobin 13.7 g/dl (12.0-16.0); Imm Gran Abs Auto 0.02 X10*3/uL (0.00-0.03); Imm Gran Pct Auto 0.3 % (0.0-0.4); Lymphocytes Absolute Auto 3.3 X10*3/uL (1.2-4.9); Lymphocytes Percent Auto 43.6 % (20-40); Mean Corpuscular HGB Conc 33.1 g/dl (31.0-35.0); Mean Corpuscular Hemoglobin 31.3 pg (27.0-33.0); Mean Corpuscular Volume 94.5 fL (80.0-98.0); Monocytes Absolute Auto 0.5 X10*3/uL (0.1-1.2); Monocytes Percent Auto 6.6 % (2-11); Neutrophils Absolute Auto 3.6 x10*3/uL (2.0-8.3); Neutrophils Percent Auto 47.4 % (45-73); Platelet Count 317 X10*3/uL (160-400); Red Blood Count 4.38 X10*6/uL (4.20-5.50); Red Cell Distribution Width 13.5 % (11.0-16.0); White Blood Count 7.5 X10*3/uL (4.8-10.8)
[2024-02-29 13:02] LABS: Anion Gap 10 (12-20); Blood Urea Nitrogen 9 mg/dL (9-16); Calcium 9.3 mg/dL (8.4-10.2); Carbon Dioxide 23 mmol/L (22-29); Chloride 112 mmol/L (96-108); Creatinine Clr Calc Pharmacy 68.6; Estimated Glomerular Filt Rate > 60; Glucose Random 175 mg/dL (60-115); Sodium 141 mmol/L (135-145)
[2024-02-29 13:09] LABS: Troponin-I High Sensitivity < 2.7 ng/L (<3.5-17.0)
[2024-02-29 13:24] LABS: Influenza A PCR NEGATIVE (Negative); Influenza B PCR NEGATIVE (Negative); Resp Syncy Virus RNA Qual PCR NEGATIVE (Negative); SARS COV2 PCR INHOUSE NEGATIVE (Negative)
[2024-02-29 14:58] VITALS: BP 145/77; PULSE 94; RESP 16; TEMP -17.7; TEMP 0; O2SAT 95
== END 2024-02-29 14:59 | disposition home or self-care (01) ==
PROVIDERS: Emergency Provider Emergency Medicine Emergency Medical Services; PCP Nurse Practitioner Primary Care
DX: L03.319 Cellulitis of trunk, unspecified (principal); R06.02 Shortness of breath; R09.89 Other specified symptoms and signs involving the circulatory and respiratory systems; R07.89 Other chest pain; Z79.899 Other long term (current) drug therapy; Z03.818 Encounter for observation for suspected exposure to other biological agents ruled out
CPT/HCPCS: 0241U; 71045; 80048; 84484; 85025; 93005; 94640; 99283; 99285

== ENCOUNTER → 2024-02-29 12:23 | Outpatient (BNV) | payer OTHER, SELFPAY | PROVIDERS: Emergency Provider Emergency Medicine Emergency Medical Services; PCP Nurse Practitioner Primary Care; Visit Provider Radiology Diagnostic Radiology | DX: R07.9 Chest pain, unspecified (principal); R91.8 Other nonspecific abnormal finding of lung field | CPT/HCPCS: 71045 ==

== ENCOUNTER → 2024-02-29 12:23 | Outpatient (BNV) | payer OTHER, SELFPAY | PROVIDERS: Emergency Provider Emergency Medicine Emergency Medical Services; PCP Nurse Practitioner Primary Care; Visit Provider Internal Medicine Cardiovascular Disease | DX: R94.31 Abnormal electrocardiogram [ECG] [EKG] (principal) | CPT/HCPCS: 93010 ==

== ENCOUNTER 2024-03-01 13:43 | Outpatient (AMB) | payer OTHER, SELFPAY ==
--- NOTE | 2024-03-01 13:49 | A.OFFVIS_ITS ---
Vital Signs 03/01/24 13:51 Height 5 ft 4 in Weight 200 lb 9.93 oz BMI 34.4 BP 120/78 Blood Pressure Location Rt brachial Position Sitting Pulse 85 Pulse Source Pulse Oximeter Intake Visit Reasons: T2DM Intake Note: Patient presents today for a follow-up on Type 2 Diabetes Mellitus: Last Diabetic eye exam was on: DUE Last Podiatry exam was on: Patient does not see a Auditor Supervisor Most recent HbA1c: 6.6%, 01/02/2024 Random Glucose- 169 mg/dL, Today Ceramics 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 Required: Yes Ceramics 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 Language: Magazine Repairer Services: Ceramics 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 Present Ceramics 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 Name: LIZET Chavez/PARVEZ DUNHAM Accompanied by: Self / Same As Patient Allergies aspirin [Aspirin] Allergy (Mild, Verified 03/01/24 13:54) ITCHY THROAT azithromycin Allergy (Unknown, Verified 03/01/24 13:54) Unknown naproxen Allergy (Unknown, Verified 03/01/24 13:54) Unknown simvastatin Allergy (Unknown, Verified 03/01/24 13:54) Unknown Fish Containing Products Allergy (Verified 03/01/24 13:54) Swelling onion [ONION] Adverse Reaction (Mild, Verified 03/01/24 13:54) RED FACE HPI Comments Details: ?63 yo female today for fup visit, for diiabetes management and hypothyroidism. She started a predisone taper for bronchitis She is off Trulicity 0.75 mg Qwkly. Because of sour taste in the mouth. She is on Fiasp 4 units TID not taking Ozempic 1 mg Qwkly Review Jalil download shows average glucose to be 130 with sensor active 96% of the time. GMI is 6.4%. 95% range with 5% hyperglycemia and no hypoglycemia ? She has PMH od GERD, asthma, hypertension, nephrolithiasis, Jerri's thyroiditis. ? She has DM type diagnosed 2016. ? 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 Non toxic multinodular goiter.with subcm nodules ? She is Currently on LT4 75 mcg , 100 % compliance , she has good method of administration. ? She has not known no retinopathy, no nephropathy, no neuropathy, no CVA, CAD, PVD . ? Last ophthalmology evaluation:saw optho in last yr - has appt in Mar off prednisone for asthma Developing nausea on the 1 mg of Ozempic and can not tolerate PFSH Medical History Trochanteric bursitis of right hip Patellofemoral arthritis of left knee Dry mouth Environmental allergies Type 2 diabetes mellitus with hyperglycemia Menopausal state Type 2 diabetes mellitus MOCK (dyspnea on exertion) Kidney stone on left side Leg pain Tear of medial meniscus of left knee Abnormal finding on ultrasound Abnormal ultrasound of kidney Bilateral renal cysts Severe persistent asthma Asthma Bilateral hand pain Bilateral knee pain Carpal tunnel syndrome of right wrist Cubital tunnel syndrome on right Renal calculi UTI (urinary tract infection) History of kidney stones COVID-19 COVID-19 COPD exacerbation Bronchitis Chest pain Acute asthma exacerbation Tubular adenoma of colon Vulvovaginitis Bronchitis Candidiasis of mouth and esophagus Yeast infection Papanicolaou smear for cervical cancer screening Preop pulmonary/respiratory exam Allergic rhinitis Anxiety and depression Fibromyalgia HTN (hypertension) PTSD (post-traumatic stress disorder) Vertigo Diabetes Spondylosis of cervical region without myelopathy or radiculopathy Low vitamin D level Non-toxic multinodular goiter Hypothyroidism DVT (deep venous thrombosis) Cocaine abuse Surgical History History of esophagogastroduodenoscopy (EGD) H/O colonoscopy with polypectomy History of selective injection of anesthetic agent around lumbar nerve root Hx of right breast biopsy History of hysterectomy History of lithotripsy Family History Father No problems noted. 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 Neck exam shows nl thyroid about 15 gms. Lungs CTA. Heart S1 S2 Reg R/R -MRG. Abdominal exam benign . Muscle strength 5/5 proximally. No hirsuitism present. No striae present. Skin exam without lesions. Const Other: Extrem Other: Visual exam of foot performed. No ulcerations or open lesions. No onchomycosis, no callouses. Sensation intact to monofilament exam. Vibratory sensation sensed 10 seconds in right, 10 seconds in left with 128 Hz tuning fork. Results Reviewed Results Reviewed: Laboratory Last Values Glucose (Clinic) 169 mg/dL (60-115) H 03/01/24 13:55 Assessment & Plan Assessment & Plan Medications: New tirzepatide (Mounjaro) for 4 weeks 2.5 mg (0.5 mL) subcut QWEEK 2 mL 5RF Discontinued semaglutide (Ozempic) Discontinued Reason: Doctor's Order 1 mg (0.75 mL) subcut QWEEK 3 mL 6RF Coding Level of Care Code Est Pt Level 4 (13768) Complex EM visit Add On G2799
[2024-03-01 13:51] VITALS: BP 120/78; PULSE 85; BMI 34.4
[2024-03-01 14:03] LABS: Glucose, Whole Blood 169 mg/dL (60-115)
== END 2024-03-01 14:28 | disposition home or self-care (01) ==
PROVIDERS: PCP Physician Assistant; Visit Provider Internal Medicine Endocrinology, Diabetes & Metabolism
DX: E11.9 Type 2 diabetes mellitus without complications (principal)
CPT/HCPCS: 99214; G2211

== ENCOUNTER → 2024-03-01 13:43 | Outpatient (BNVA) | payer OTHER, SELFPAY | PROVIDERS: PCP Physician Assistant; Visit Provider Physician Assistant | DX: E11.9 Type 2 diabetes mellitus without complications (principal) | CPT/HCPCS: 82947; 99212 ==

== ENCOUNTER 2024-03-16 13:21 | Outpatient (AMB) | payer OTHER, SELFPAY ==
[2024-03-16 13:44] VITALS: BP 135/65; PULSE 90; BMI 34.7
--- NOTE | 2024-03-16 13:44 | MHC.OFFVIS ---
Vital Signs 03/16/24 13:44 Height 5 ft 4 in Weight 202 lb BMI 34.7 BP 135/65 Blood Pressure Location Rt brachial Position Sitting Pulse 90 Intake Visit Reasons: abscess x2 buttock, x1 LT labia mayora Intake Note: Patient referred by pcp Sariah Vickers for abscess on Lt gluteal area and Rt lower abd. Present for yrs. Patient c/o: abscess on groin area. Evp Chief Exploration Officer Required: No Accompanied by: Self / Same As Patient Allergies aspirin [Aspirin] Allergy (Mild, Verified 03/16/24 13:47) ITCHY THROAT azithromycin Allergy (Unknown, Verified 03/16/24 13:47) Unknown naproxen Allergy (Unknown, Verified 03/16/24 13:47) Unknown simvastatin Allergy (Unknown, Verified 03/16/24 13:47) Unknown Fish Containing Products Allergy (Verified 03/16/24 13:47) Swelling onion [ONION] Adverse Reaction (Mild, Verified 03/16/24 13:47) RED FACE HPI Comments Details: Patient has a longstanding history of carbuncle who presents here with 2. One involving her left buttock which is a few days old and a new 1 involving a right anterior abdominal wall. She has never required formalin incision and drainage in the past. She is not on antibiotics at present. She presents here for further evaluation. Chart was reviewed and patient evaluated [facility] Medical History Trochanteric bursitis of right hip Patellofemoral arthritis of left knee Dry mouth Environmental allergies Type 2 diabetes mellitus with hyperglycemia Menopausal state Type 2 diabetes mellitus MOCK (dyspnea on exertion) Kidney stone on left side Leg pain Tear of medial meniscus of left knee Abnormal finding on ultrasound Abnormal ultrasound of kidney Bilateral renal cysts Severe persistent asthma Asthma Bilateral hand pain Bilateral knee pain Carpal tunnel syndrome of right wrist Cubital tunnel syndrome on right Renal calculi UTI (urinary tract infection) History of kidney stones COVID-19 COVID-19 COPD exacerbation Bronchitis Chest pain Acute asthma exacerbation Tubular adenoma of colon Vulvovaginitis Bronchitis Candidiasis of mouth and esophagus Yeast infection Papanicolaou smear for cervical cancer screening Preop pulmonary/respiratory exam Allergic rhinitis Anxiety and depression Fibromyalgia HTN (hypertension) PTSD (post-traumatic stress disorder) Vertigo Diabetes Spondylosis of cervical region without myelopathy or radiculopathy Low vitamin D level Non-toxic multinodular goiter Hypothyroidism DVT (deep venous thrombosis) Cocaine abuse Surgical History History of esophagogastroduodenoscopy (EGD) H/O colonoscopy with polypectomy History of selective injection of anesthetic agent around lumbar nerve root Hx of right breast biopsy History of hysterectomy History of lithotripsy Family History Father No problems noted. 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 Early carbuncle type process involving the right lower quadrant abdominal wall. No fluctuance or abscess yet. Back/Spine/Pelvis Other: Patient has a resolving carbon involving the upper left buttock. Assessment & Plan Assessment & Plan (1) Carbuncle and furuncle of buttock: Code(s): L02.33 - Carbuncle of buttock Category: Surgical (2) Carbuncle of abdominal wall: Code(s): L02.231 - Carbuncle of abdominal wall Category: Surgical Plan Current plan is treat these conservatively with warm compresses and antibiotics. Patient will see me in few days' time for follow-up or p.r.n.. All questions answered. Coding Level of Care Code New Pt Level 4 (64234) Diagnoses Carbuncle and furuncle of buttock L02.33 Carbuncle of abdominal wall L02.231
--- OUTSIDE RECORDS SUMMARY | 2024-03-16 14:20 | XMS_ITS | Clinical Summary ---
Author Organization [address] [facility] Address [address] [place] [address] Phone Care Team Providers Care Director Radiation Oncology Name Role Phone Sariah Vickers NP Primary Care Provider [phone] Social History Tobacco Use Types Packs/Day Years Used Date Smoking Tobacco: Never Assessed Sex and Gender Information Value Date Recorded Sex Assigned at Not on file Gender Identity Not on file Sexual Orientation Not on file Plan of Treatment Health Maintenance Due Date Last Done Comments Breast Cancer Screening 1960 Cervical Cancer Screening: P ap Smear 1981 Hepatitis B Vaccines (2 of 3 - 19+ 3-dose series) 08/11/2018 07/14/2018 Zoster Vaccines (2 of 2) 06/04/2019 04/09/2019 Colorectal Cancer Screening: Colonoscopy 01/29/2022 Depression Screening 01/29/2022 HIV Screening 01/29/2022 Hepatitis C Screening 01/29/2022 Social Influencers of Health Screening 01/29/2022 COVID-19 Vaccine ( - 2023-2 5 season) 2023 Influenza Vaccine (#1) 2023 11/09/2018 DTaP,Tdap,and Td Vaccines (2 - Td or Tdap) 07/08/2028 07/08/2018 RSV Immunization Patients 60 + Years Old (1 - 1-dose 75+ series) 08/06/2035 HIB Vaccines Aged Out No longer eligi ble based on patient's age to complete this topic HPV Vaccines Aged Out No longer eligi ble based on patient's age to complete this topic Hepatitis A Vaccines Aged Out No long er eligible based on patient's age to complete this topic IPV Vaccines Aged Out No longer eligi ble based on patient's age to complete this topic MMR Vaccines Aged Out No longer eligi ble based on patient's age to complete this topic Meningococcal ACWY Vaccine Aged Out N o longer eligible based on patient's age to complete this topic Pneumococcal Vaccine: Pediat rics (0 to 5 Years) and At-Risk Patients (6 to 64 Years) Aged Out No longer eligi ble based on patient's age to complete this topic RSV Immunization Patients Un rosa 20 months Aged Out No longer eligible b ased on patient's age to complete this topic Varicella Vaccines Aged Out No longer eligible based on patient's age to complete this topic Care Teams Director Radiation Oncology Relationship Specialty Start Date End Date Sariah Vickers NP [address] [place] [id number] PCP - General 12/03/23
== END 2024-03-16 13:57 | disposition home or self-care (01) ==
PROVIDERS: PCP Physician Assistant; Visit Provider Surgery
DX: L02.33 Carbuncle of buttock (principal); L02.231 Carbuncle of abdominal wall
CPT/HCPCS: 99204

== ENCOUNTER → 2024-03-16 13:21 | Outpatient (BNVA) | payer OTHER, SELFPAY | PROVIDERS: PCP Physician Assistant; Visit Provider Surgery | DX: L02.33 Carbuncle of buttock (principal); L02.231 Carbuncle of abdominal wall | CPT/HCPCS: 99202 ==

== ENCOUNTER 2024-03-20 13:43 | Inpatient (IN) | payer OTHER, SELFPAY ==
--- NOTE | ~2024-03-20 | CT_ITS ---
CLINICAL HISTORY: abdominal wall cellulitis abscess CT abdomen and pelvis with contrast Comparison: CT/LA/SR - CT ABDOMEN WO/W IV CON - 09/05/23 16:27 EDT Findings: No consolidation or effusion. There is a 3 cm cyst within the superior pole of the left kidney. Posterior atrophy of the right kidney. No hydronephrosis of either kidney. No ureteral stones. Spleen, adrenal glands, pancreas, gallbladder and liver are unremarkable. No bowel obstruction, pneumoperitoneum, or pneumatosis. There are scattered colonic diverticula, however no evidence of diverticulitis. Skin thickening over the anterior right abdomen. No underlying fluid collection or abscess. No subcutaneous gas. Incidentally noted lateral right abdominal wall lipoma measuring 4.0 x 8.1 cm, unchanged. Small fat containing right inguinal hernia. Infrarenal abdominal aorta measures 2.7 x 2.9 cm. Aorta previously measured 2.9 x 3.0, not significantly changed. There are mild wall calcifications of the abdominal aorta. Pelvic contents unremarkable. Normal appendix. The bones are intact. Mild degenerative changes of the lumbar spine. Small fat containing umbilical hernia. IMPRESSION: 1. Skin thickening over the anterior right abdominal wall, compatible with cellulitis. No underlying abscess. 2. 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 This document has been electronically signed by: Gregory Brown MD on 03/20/2024 19:20:13
[2024-03-20 14:09] VITALS: BP 137/70; PULSE 93; RESP 19; TEMP 36.9; O2SAT 98; BMI 36.8
--- NOTE | 2024-03-20 14:10 | ED.SKABFB ---
HPI - Skin/Abscess/Foreign Bdy General Chief complaint: Wound/Laceration Stated complaint: abd abscess Time Seen by Provider: 03/20/24 14:48 Source: patient, RN notes reviewed and old records reviewed Mode of arrival: ambulatory History of Present Illness ED Provider: Maritza Mckeon PA-C HPI narrative: 63-year-old Grenadian-speaking female with a past medical history asthma/COPD overlap syndrome, HTN, dm, and PTSD, HLD, GERD, hypothyroid, presenting to the ED complaining of persistent right lower abdominal wall pain and infection x 1 week. Also reports buttock cysts. Patient was seen and treated by General surgery, Dr. Frank in 128, prescribed Bactrim without relief. Denies known fever, chills, drainage from area, nausea/vomiting, dysuria/hematuria Related Data Home Medications ?Medication ?Instructions ?Recorded ?Confirmed calcium 600 mg (as 1 tab PO BID 11/20/19 03/16/24 carbonate)-vitamin D3 10 mcg (400 unit) tablet potassium chloride 20 mEq 20 meq PO BID 11/20/19 03/16/24 tablet,extended release(part/cryst) zolpidem 10 mg tablet 10 mg PO BEDTIME PRN Insomnia 11/20/19 03/16/24 clonazepam 1 mg tablet (Klonopin) 1 mg PO DAILY 03/08/20 03/16/24 montelukast 10 mg tablet 10 mg PO BEDTIME 03/08/20 03/16/24 multivitamin-ferrous 1 tab PO DAILY 07/06/21 03/16/24 fumarate-folic acid 18 mg-400 mcg tablet (Certavite-Antioxidant) fluoride (sodium) 1.1 % dental appl PO 10/16/21 03/16/24 cream (SF 5000 Plus) tramadol 50 mg tablet 50 mg PO BID PRN Pain 01/31/22 03/16/24 diclofenac sodium 1 % topical gel g topical 05/07/22 03/16/24 acetaminophen 325 mg tablet 325 mg PO PRN pain 06/11/22 03/16/24 amlodipine 10 mg tablet 10 mg PO DAILY 07/09/23 03/16/24 atorvastatin 80 mg tablet 80 mg PO BEDTIME 07/09/23 03/16/24 cetirizine 10 mg tablet 10 mg PO QPM 07/09/23 03/16/24 enalapril maleate 20 mg tablet 20 mg PO DAILY 07/09/23 03/16/24 buspirone 15 mg tablet 15 mg PO TID 12/18/23 03/16/24 insulin lispro 100 unit/mL 4 unit subcut TID PRN 12/18/23 03/16/24 subcutaneous pen (Humalog KwikPen (U-100) Insulin) meclizine 25 mg tablet mg PO 12/18/23 03/16/24 Previous Rx's ?Medication ?Instructions ?Recorded leg brace (Knee Support Brace) #2 ea 03/08/20 blood-glucose meter (FreeStyle #1 ea 02/28/22 Flash System kit) pen needle, diabetic 32 gauge x ##100 10/01/22 (UltiCare Pen Needle) fluticasone 250 mcg-salmeterol 50 1 ea inhalation BID 30 days #60 ea 10/02/22 mcg/dose blistr powdr for inhalation lidocaine 5 % topical patch 1 patch topical DAILY #15 ea 10/20/22 gabapentin 400 mg capsule 400 mg PO BEDTIME #30 caps 01/01/23 hydrocortisone 2.5 % topical cream 1 appl OR BID hemorrhoids #30 grams 02/04/23 with perineal applicator (Proctosol HC) levothyroxine 75 mcg tablet 75 mcg PO QAM #90 tabs 04/14/23 omalizumab 150 mg subcutaneous 300 mg subcut Q2W 28 days #4 ea 05/19/23 solution clotrimazole-betamethasone 1 1 appl topical BID itching 7 days 06/12/23 %-0.05 % topical cream #45 grams acetaminophen 500 mg tablet 1,000 mg (2 x 500 mg) PO Q6H PRN 09/04/23 (Tylenol Extra Strength) fever or pain #20 tabs ibuprofen 400 mg tablet 400 mg PO TID PRN fever or pain 09/04/23 #30 tabs lorazepam 1 mg tablet (Ativan) 1 mg PO TID PRN anxiety #10 tabs 09/04/23 dextrose 40 % oral gel (Glutose-15) 15 g PO DIRECTED for 10/10/23 hypoglycemia #112.5 grams flash glucose scanning reader #1 ea 10/16/23 (FreeStyle Jalil 2 [place]) metoclopramide HCl 5 mg tablet 5 mg PO TID #90 tabs 10/24/23 (Reglan) plecanatide 3 mg tablet (Trulance) 3 mg PO DAILY #30 tabs 10/24/23 sennosides 8.6 mg tablet (senna) 17.2 mg (2 x 8.6 mg) PO BEDTIME 10/24/23 constipation #60 tabs Lactobacil rhamnosus GG 10 billion 1 cap PO DAILY #30 caps 11/07/23 cell-inulin 200 mg sprinkle capsule ([facility] [employer] [facility]) albuterol sulfate 90 mcg/actuation 2 puff inhalation Q4-6H PRN for 11/17/23 aerosol inhaler (Ventolin HFA) wheezing #18 grams docusate sodium 100 mg capsule 100 mg PO BID #60 caps 11/20/23 (Stool Softener) omeprazole 20 mg capsule,delayed 20 mg PO BID #60 caps 11/20/23 release magnesium citrate 150 ml PO DAILY #300 mL 11/21/23 prednisone 20 mg tablet 40 mg (2 x 20 mg) PO DAILY #10 tabs 01/14/24 pyridoxine (vitamin B6) 100 mg 100 mg PO DAILY #90 tabs 01/19/24 tablet levofloxacin 750 mg tablet 750 mg PO DAILY #10 tabs 02/03/24 tiotropium bromide 18 mcg capsule 1 cap inhalation DAILY #30 caps 02/09/24 with inhalation device (Spiriva with HandiHaler) ipratropium 20 mcg-albuterol 100 1 puff PO QID #4 grams 03/03/24 mcg/actuation mist for inhalation (Combivent Respimat) tirzepatide 2.5 mg/0.5 mL 2.5 mg (0.5 mL) subcut QWEEK #2 mL 03/13/24 subcutaneous pen injector (Mounjaro) sulfamethoxazole 400 1 tab PO BID #30 tabs 03/16/24 mg-trimethoprim 80 mg tablet (Bactrim) flash glucose sensor (FreeStyle #2 ea 03/17/24 Jalil 2 Sensor kit) blood sugar diagnostic (FreeStyle #100 strips 03/19/24 Lite Strips) lancets 33 gauge (TRUEplus Lancets) #100 ea 03/19/24 Allergies Allergy/AdvReac Type Severity Reaction Status Date / Time aspirin [Aspirin] Allergy Mild ITCHY Verified 03/20/24 14:11 THROAT azithromycin Allergy Unknown Unknown Verified 03/20/24 14:11 naproxen Allergy Unknown Unknown Verified 03/20/24 14:11 simvastatin Allergy Unknown Unknown Verified 03/20/24 14:11 Fish Containing Products Allergy Swelling Verified 03/20/24 14:11 vancomycin Allergy Rash Verified 03/20/24 19:57 onion [ONION] AdvReac Mild RED FACE Verified 03/20/24 14:11 Review of Systems Review of Systems: Yes all other systems are reviewed and are negative Constitutional: Constitutional: Reports as per [facility] Past Medical History Attestation statement: The following information was validated with the patient. Source: old records reviewed Medical History Trochanteric bursitis of right hip Patellofemoral arthritis of left knee Dry mouth Environmental allergies Type 2 diabetes mellitus with hyperglycemia Menopausal state Type 2 diabetes mellitus MOCK (dyspnea on exertion) Kidney stone on left side Leg pain Tear of medial meniscus of left knee Abnormal finding on ultrasound Abnormal ultrasound of kidney Bilateral renal cysts Severe persistent asthma Asthma Bilateral hand pain Bilateral knee pain Carpal tunnel syndrome of right wrist Cubital tunnel syndrome on right Renal calculi UTI (urinary tract infection) History of kidney stones COVID-19 COVID-19 COPD exacerbation Bronchitis Chest pain Acute asthma exacerbation Tubular adenoma of colon Vulvovaginitis Bronchitis Candidiasis of mouth and esophagus Yeast infection Papanicolaou smear for cervical cancer screening Preop pulmonary/respiratory exam Allergic rhinitis Anxiety and depression Fibromyalgia HTN (hypertension) PTSD (post-traumatic stress disorder) Vertigo Diabetes Spondylosis of cervical region without myelopathy or radiculopathy Low vitamin D level Non-toxic multinodular goiter Hypothyroidism DVT (deep venous thrombosis) Cocaine abuse Surgical History History of esophagogastroduodenoscopy (EGD) H/O colonoscopy with polypectomy History of selective injection of anesthetic agent around lumbar nerve root Hx of right breast biopsy History of hysterectomy History of lithotripsy Family History Family History Father No problems noted. 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 Physical Exam Vital Signs: Vital Signs: Last Vital Signs Temp 97.7 F 03/20/24 16:57 Pulse 83 03/20/24 16:57 Resp 20 03/20/24 16:57 BP 138/80 03/20/24 16:57 Pulse Ox 98 03/20/24 16:57 O2 Del Method Room Air 03/20/24 16:57 BMI result Body Mass Index 36.8 Const: General: cooperative, healthy appearing and no acute distress Orientation/consciousness: patient oriented x3 Limitations: no limitations HEENT: Head: Yes normal to inspection and Yes atraumatic Ears: hearing grossly normal bilaterally General nose exam: Normal external nose present Face and sinus: Yes normal facial exam Eyes: General: appearance normal, both eyes and all related structures EOM: EOMs intact bilaterally Neck: Neck: Yes normal visual inspection and Yes no meningeal signs Resp: Effort & Inspection: normal respiratory effort and no respiratory distress Cardio: Rate: regular rate GI: Other: Please refer to image above. Abdomen w/ appreciable indurated abscess with surrounding erythema. Warmth. Tender to palpation localized to cellulitic area. No fluctuance. No active drainage. Palpation (GI): Soft to palpation and Tenderness to palpation present (GI) Skin: Other: + indurated cysts noted to buttock region without erythema/warmth or fluctuance. Nontender. Rashes: no rashes Neuro: General: patient oriented x3, tone normal and no meningeal signs Cranial nerves: Yes CN's II-XII intact bilaterally Gait exam (Neuro): Normal gait present Extrem: General: Yes normal to inspection Course Course Course Narrative: 63 yo female with PMH of asthma-COPD overlap, HTN, DM, PTSD, HLD, GERD, hypothyroidism has been on bactrim for R lower abdominal wall cellulitis reports having fevers and chills at home she has only been on bactrim x 3 days. She is being managed by Zac who started her on the bactrim 03/16 no I+D done abx and warm compress for now. She also has buttock abscess/labia abscess. At this time will obtain basic labs refer to main for further workup this is a RAPID medical screening exam the rest of the history and physical exam is to be done by the main provider. --no leukocytosis. ESR/CRP elevated. + transaminitis. -[id number]--patient came back from bathroom and reported forehead/chest erythema/rash and pruritus. Vancomycin currently infusing. Suspect medication reaction. Vancomycin stopped. Patient given IV Benadryl and Pepcid. No SOB, throat closing sensation or oral swelling. Talking in complete sentences. CT abdomen pelvis w IV con IMPRESSION: 1. Skin thickening over the anterior right abdominal wall, compatible with cellulitis. No underlying abscess. 2. 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 > plan to admit for further management Medications Administered Discontinued Medications Generic Name Dose Route Start Last Admin Trade Name Freq PRN Reason Stop Dose Admin Ceftriaxone Sodium 1 gm 03/20/24 15:02 03/20/24 15:11 Ceftriaxone Sodium 1 Gm Vial IVPUSH 03/20/24 15:03 1 gm ONCE ONE Administration Diphenhydramine HCl 50 mg 03/20/24 16:53 03/20/24 17:06 Diphenhydramine Hcl 50 Mg/Ml Vial IVPUSH 03/20/24 16:54 50 mg ONCE ONE Administration Famotidine 20 mg 03/20/24 16:53 03/20/24 17:06 Famotidine/Pf 20 Mg/2 Ml Vial IVPUSH 03/20/24 16:54 20 mg ONCE ONE Administration Sodium Chloride 1,000 mls @ 999 mls/hr 03/20/24 15:15 03/20/24 16:15 Ns IV 03/20/24 16:15 Infused .Q1H1M HEIDE Infusion Vancomycin HCl 2,000 mg in 500 mls @ 250 mls/hr 03/20/24 15:02 03/20/24 17:00 Vancomycin/Ns IV 03/20/24 17:01 Infused ONCE ONE Infusion Iohexol 100 ml 03/20/24 18:26 03/20/24 18:34 Iohexol 350 Mg/Ml 100 Ml Infus..Btl IV 03/20/24 18:27 50 ml ONCE ONE Administration Medical Decision Making Medical Decision Making MDM Narrative: 63-year-old Grenadian-speaking female with a past medical history asthma/COPD overlap syndrome, HTN, dm, and PTSD, HLD, GERD, hypothyroid, presenting to the ED complaining of persistent right lower abdominal wall pain and infection x 1 week. Also reports buttock cysts. On exam vital signs stable, NAD, nontoxic appearing right physical exam as noted above. Please refer to image. Concern for abdominal wall cellulitis/indurated abscess verse deeper infection/edema. Low suspicion for acute appendicitis/diverticulitis. Patient has failed outpatient antibiotics Plan: Labs including lactic/blood cultures, empiric IV antibiotics, CTAP, anticipate admission Please refer to course for remaining clinical decision making, interpretation of labs/imaging results, and discussions with consultants and/or family members. Differential Diagnosis Differential Diagnoses: The differential diagnosis associated with the presentation includes As above Admission/Observation Consideration of admission/observation: Escalation of care including admission/observation considered Consult Healthcare Provider Management of the patient was discussed with: Hospitalist and Program Professional Lab Data [facility] Lab Attestation statement: I reviewed the patient's lab results. 03/20/24 14:28 03/20/24 14:28 Labs: Lab Results 03/20/24 03/20/24 03/20/24 Range/Units 14:28 15:54 17:01 WBC 6.8 (4.8-10.8) X10*3/uL RBC 4.08 L (4.20-5.50) X10*6/uL Hgb 13.0 (12.0-16.0) g/dl Hct 38.0 (37.0-47.0) % MCV 93.1 (80.0-98.0) fL MCH 31.9 (27.0-33.0) pg MCHC 34.2 (31.0-35.0) g/dl RDW 14.1 (11.0-16.0) % Plt Count 280 (160-400) X10*3/uL MPV 9.2 L (9.4-12.3) fL Immature Gran % (Auto) 0.1 (0.0-0.4) % Neut % (Auto) 53.1 (45-73) % Lymph % (Auto) 36.2 (20-40) % Woodward % (Auto) 7.9 (2-11) % Eos % (Auto) 2.4 (0-4) % Baso % (Auto) 0.3 (0-2) % Lymph # (Auto) 2.5 (1.2-4.9) X10*3/uL Woodward # (Auto) 0.5 (0.1-1.2) X10*3/uL Eos # (Auto) 0.2 (0.0-0.4) X10*3/uL Baso # (Auto) 0.0 (0.0-0.2) X10*3/uL Abs Immat Gran (auto) 0.01 (0.00-0.03) X10*3/uL Absolute Neuts (auto) 3.6 (2.0-8.3) x10*3/uL Absolute Nucleated RBC 0.000 (0.0-0.012) X10*3/uL Nucleated RBC % (auto) 0.0 (0.0-0.2) /100WBC ESR 46 H (0-20) MM/HR Sodium 143 (135-145) mmol/L Potassium 3.7 (3.3-5.1) mmol/L Chloride 112 H (96-108) mmol/L Carbon Dioxide 23 (22-29) mmol/L Anion Gap 12 (12-20) BUN 13 (9-16) mg/dL Creatinine 0.82 (0.5-1.4) mg/dL Estim Creat Clear Calc 73.7 Estimated GFR > 60 POC Glucose 65 163 H (60-115) mg/dL Random Glucose 112 (60-115) mg/dL Lactic Acid 0.8 (0.5-2.0) mmol/L Calcium 8.7 D (8.4-10.2) mg/dL Magnesium 2.2 (1.6-2.6) mg/dL Total Bilirubin 0.4 (0.0-1.0) mg/dL Direct Bilirubin 0.2 (0.0-0.5) mg/dL AST 173 H (5-31) U/L ALT 249 H (0-31) U/L Alkaline Phosphatase 138 H (39-117) U/L C-Reactive Protein 3.90 H (< or = 0.50) mg/dL Total Protein 7.8 (6.5-8.0) g/dL Albumin 3.8 (3.5-5.0) g/dL Lipase 16 (8-78) U/L Independent Interpretation I performed an independent interpretation of an: CT Scan Radiology Impression Discussion of test interpretation with radiology: I have reviewed the radiologist's reading. External Record Review External record reviewed: Inpatient record, Office record, Outpatient record, Prior outpatient labs, Prior outpatient radiology, Primary care record and Outside ED record Tests considered The following testing was considered but not selected: As above Prescription Management I considered prescription management with: Pain Medication and Antibiotic Chronic Conditions Patient?s care impacted by: Diabetes and Other Social Determinants Patient?s care significantly limited by Social Determinants of Health including: Other Social Determinant of Health Critical Care Time Critical Care Time Critical Care Time: Yes Total Critical Care Time: 40 Attestation: I have personally provided critical care time exclusive of time spent on separately billable procedures. Time includes review of lab data, radiology results, discussion with consultants, and monitoring for potential decompensation. Intervention performed as documented. Discharge Plan Discharge Clinical Impression: Abdominal wall cellulitis Patient Disposition: Admitted As Inpatient Print Language: Grenadian
[2024-03-20 14:35] LABS: MANUAL DIFF FLAG NO
[2024-03-20 14:39] LABS: Basophils Percent Auto 0.3 % (0-2); Eosinophils Absolute Auto 0.2 X10*3/uL (0.0-0.4); Eosinophils Percent Auto 2.4 % (0-4); Imm Gran Abs Auto 0.01 X10*3/uL (0.00-0.03); Imm Gran Pct Auto 0.1 % (0.0-0.4); Lymphocytes Absolute Auto 2.5 X10*3/uL (1.2-4.9); Lymphocytes Percent Auto 36.2 % (20-40); Mean Corpuscular HGB Conc 34.2 g/dl (31.0-35.0); Mean Corpuscular Hemoglobin 31.9 pg (27.0-33.0); Mean Corpuscular Volume 93.1 fL (80.0-98.0); Mean Platelet Volume 9.2 fL (9.4-12.3); Monocytes Absolute Auto 0.5 X10*3/uL (0.1-1.2); Monocytes Percent Auto 7.9 % (2-11); Neutrophils Absolute Auto 3.6 x10*3/uL (2.0-8.3); Neutrophils Percent Auto 53.1 % (45-73); Platelet Count 280 X10*3/uL (160-400); Red Blood Count 4.08 X10*6/uL (4.20-5.50); Red Cell Distribution Width 14.1 % (11.0-16.0); White Blood Count 6.8 X10*3/uL (4.8-10.8)
[2024-03-20 14:53] LABS: Alanine Aminotransferase 249 U/L (0-31); Albumin Level 3.8 g/dL (3.5-5.0); Alkaline Phosphatase 138 U/L (39-117); Anion Gap 12 (12-20); Aspartate Amino Transferase 173 U/L (5-31); Bilirubin Direct 0.2 mg/dL (0.0-0.5); Bilirubin Total 0.4 mg/dL (0.0-1.0); Blood Urea Nitrogen 13 mg/dL (9-16); Calcium 8.7 mg/dL (8.4-10.2); Carbon Dioxide 23 mmol/L (22-29); Chloride 112 mmol/L (96-108); Creatinine Clr Calc Pharmacy 73.7; Estimated Glomerular Filt Rate > 60; Glucose Random 112 mg/dL (60-115); Lactic Acid 0.8 mmol/L (0.5-2.0); Magnesium 2.2 mg/dL (1.6-2.6); Potassium 3.7 mmol/L (3.3-5.1); Sodium 143 mmol/L (135-145); Total Protein 7.8 g/dL (6.5-8.0)
--- OUTSIDE RECORDS SUMMARY | 2024-03-20 14:54 | XMS_ITS | Encounter Summary ---
Author Organization [employer] [facility] Address [address] [place] [address] [address] [place] [address] Care Team Providers Care Insole Lip Turner Name Role Phone Alee Sariah PAGE Primary Care Provider [phone] Encounter Details Date Type Department Care Team (Latest Contact Info) Description 05/15/2018 Abstract [facility], Provider, DDS Social History Tobacco Use Types Packs/Day Years Used Date Smoking Tobacco: Never Assessed Comments Unknown Sex and Gender Information Value Date Recorded Sex Assigned at Female 12/17/2021 10:16 AM EDT Legal Sex Female 10:16 AM EDT Gender Identity Female 12/17/2021 10:16 AM EDT Sexual Orientation Lesbian or Strong 12/17/2021 10 :16 AM EDT documented as of this encounter Plan of Treatment Upcoming Encounters Date Type Department Care Team (Late st Contact Info) Description 04/09/2024 10:00 AM EST Office Visit [facility] [address] [place] [address] Nuvia Duarte [address] [place] [address] 04/12/2024 1:30 PM EST Office Visit [facility] [address] [place] [address] Sariah Vickers ANP [address] [place] [address] 04/23/2024 11:30 AM EST Clinical Support [facility] [address] [place] [phone] Azeb Hall RN [address] [place] [address] documented as of this encounter Visit Diagnoses Not on filedocumented in this encounter Care Teams Insole Lip Turner Relationship Specialty Start Date End Date Sariah Vickers ANP [address] [place] [address] PCP - General Family Medicine 09/23/19 documented as of this encounter
--- OUTSIDE RECORDS SUMMARY | 2024-03-20 14:54 | XMS_ITS | Encounter Summary ---
Author Organization [employer] Address 75 [facility] 7t [place] [address] Care Team Providers Care Customs Brokerage Manager Name Role Phone Sariah Vickers Primary Care Provider [phone] Reason for Visit * Reason Comments Med Refill Encounter Details Date Type Department Care Team ([facility] st Contact Info) Description 03/01/2024 Refill [facility] MED & PEDS [address] [place] [address] Sariah Vickers ANP 230 [place] [address] Cervicalgia Social History Tobacco Use Types Packs/Day Years Used Date Smoking Tobacco: Former Cigarettes 0.3 7 2 010 - 2016 Passive Smoke Exposure: Past Smokeless Tobacco: Never Alcohol Use Standard Drinks/Week Comments Not Currently 0 (1 standard drink = 0.6 oz pur e alcohol) Depression Answer Date Recorded Patient Health Questionnaire-9 Score 12 10/01/2023 Patient Health Questionnaire-9 Score 12 10/01/2023 Last PHQ-9: Questionnaire Data Not on file 0 10/01/2023 Housing Stability Answer Date Recorded What is your housing situation today? I have rodrigo kent 06/23/[address] you li ve. Do you have problems with any of the following? None of the above 06/23/2023 Food Insecurity Answer Date Recorded Within the past 12 months, y ou worried that your food would run out before you got money to buy more: Never True 06/23/2023 Within the past 12 months,th e food you bought just didn't last and you didn't have enough money to get more: Never True 07/2023 Transportation Answer Date Recorded In the past 12 months, has l ack of transportation kept you from medical appts, meetings, work or from getting things needed for daily living? No 06/23/2023 Utilities Answer Date Recorded In the past 12 months, has t he electric, gas, oil or water company threatened to shut off services in your home? No 06/23/2023 Depression Answer Date Recorded Patient Health Questionnaire-2 Score 4 10/01/2023 Comments Unknown Sex and Gender Information Value [...] Description 04/09/2024 10:00 AM EST Office Visit [facility] ADULT DENTAL [address] [place] [address] Nuiva Duarte [address] [place] [address] 04/12/2024 1:30 PM EST Office Visit [facility] MEDICINE [address] [place] [address] Sariah Vickers ANP 230 [place] [address] 04/23/2024 11:30 AM EST Clinical Support [address] [address] Azeb Hall, RN [address] [place] [address] documented as of this encounter Goals Goal Patient Goal Type Associated Problems Recent Progress Patient-Stated? Author Blood Pressure < 140/90 Blood Pressure 130/91(2024 1:28 PM EST) No Piers-Gambl e, Aida, PharmD Record Your Blood Sugar As Directed General No Piers-Gambl e, Aida, PharmD Hemoglobin A1c < 7 Result Component 6.6( 8:44 AM EST) No Piers-Gambl e, Aida, PharmD documented as of this encounter Visit Diagnoses Diagnosis Cervicalgia documented in this encounter Additional Health Concerns Assessment Noted Time PHQ-9 Depression Total Score: 12 024 2:58 PM EDT documented as of this encounter Care Teams Customs Brokerage Manager Relationship Specialty Start Date End Date Sariah Vickers ANP 230 [facility] [place] [address] PCP - General Family Medicine 09/23/19 documented as of this encounter
--- OUTSIDE RECORDS SUMMARY | 2024-03-20 14:54 | XMS_ITS | Encounter Summary ---
Author Organization [employer] Address 75 [facility] 7t [place] [address] Care Team Providers Care Manager Entry Name Role Phone Sariah Vickers Primary Care Provider [phone] Reason for Visit * Reason Onset Date Comments Paperwork/Forms 03/15/2024 Encounter Details Date Type Department Care Team ([facility] st Contact Info) Description 03/15/2024 Telephone [facility] MEDICINE [address] [place] [address] Candy Bains, RN [address] [place] [address] Paperwork/Forms Social History Tobacco Use Types Packs/Day Years [...] AM EDT documented as of this encounter Miscellaneous Notes * Telephone Encounter - Candy Bains RN - 03/17/2024 3:08 PM EST Faxed completed form back to [facility] as below * Telephone Encounter - Candy Bains RN - 03/15/2024 3:46 PM EST Received form from [facility] reporting drug interaction between tramadol and ambien. Form placed on PCP'sdesk. Pending completion. documented in this encounter Plan of Treatment Upcoming Encounters Date Type Department Care Team (Late st Contact Info) Description 04/09/2024 10:00 AM EST Office Visit [facility] ADULT DENTAL [address] [place] [address] Nuvia Duarte [address] [place] [address] 04/12/2024 1:30 PM EST Office Visit [facility] MEDICINE [address] [place] [address] Sariah Vickers ANP [address] [place] [address] 04/23/2024 11:30 AM EST Clinical Support [address] [address] Azeb Hall, MARTIN 505 [place] [address] documented as of this encounter Goals Goal [...] Diagnoses Not on filedocumented in this encounter Additional Health Concerns Assessment Noted Time PHQ-9 Depression Total Score: 12 024 2:58 PM EDT documented as of this encounter Care Teams Manager Entry Relationship Specialty Start Date End Date Sariah Vickers ANP [address] [place] [address] PCP - General Family Medicine 09/23/19 documented as of this encounter
--- OUTSIDE RECORDS SUMMARY | 2024-03-20 14:54 | XMS_ITS | Encounter Summary ---
Author Organization [facility] Address [address] [place] [address] 7t [place] [address] Care Team Providers Care Overnight Stocker Name Role Phone Sariah Vickers Primary Care Provider [phone] Encounter Details Date Type Department Care Team (Late st Contact Info) Description 01/09/2022 Abstract [facility] ADULT DENTAL [address] [place] [address] Dental, Provider, DDS Social History Tobacco Use [...] Description 04/09/2024 10:00 AM EST Office Visit [facility] ADULT DENTAL [address] [place] [address] Nuvia Duarte [address] [place] [address] 04/12/2024 1:30 PM EST Office Visit [facility] MEDICINE [address] [place] [address] Sariah Vickers ANP 230 [place] [address] 04/23/2024 11:30 AM EST Clinical Support [facility] MEDICINE [address] [place] [address] Azeb Hall RN [address] [place] [address] documented as of this encounter Procedures Procedure Name Priority Date/Time Associated Diagnosis Comments 18,19,30,31 PARTIAL DENTURE Routine 01/09/2022 12:00 AM EST 3,5,12,14,15 PARTIAL DENTURE Routine 01/09/2022 12:00 AM EST 25 LI COMPOSITE FILLING Routine 01/10/20 12:00 AM EST 24 LEE COMPOSITE FILLING Routine 022 12:00 AM EST 23 LI COMPOSITE FILLING Routine 01/10/20 12:00 AM EST 22 LI COMPOSITE FILLING Routine 01/10/20 12:00 AM EST 11 LI COMPOSITE FILLING Routine 01/10/20 12:00 AM EST 10 LI COMPOSITE FILLING Routine 01/10/20 12:00 AM EST 7 LI COMPOSITE FILLING Routine 12:00 AM EST 6 LI COMPOSITE FILLING Routine 12:00 AM EST 4 M COMPOSITE FILLING Routine 01/09/2022 12:00 AM EST 30 EXTRACTION Routine 01/09/2022 12:00 AM EST 31 EXTRACTION Routine 01/09/2022 12:00 AM EST 32 EXTRACTION Routine 01/09/2022 12:00 AM EST 19 EXTRACTION Routine 01/09/2022 12:00 AM EST 18 EXTRACTION Routine 01/09/2022 12:00 AM EST 17 EXTRACTION Routine 01/09/2022 12:00 AM EST 16 EXTRACTION Routine 01/09/2022 12:00 AM EST 15 EXTRACTION Routine 01/09/2022 12:00 AM EST 14 EXTRACTION Routine 01/09/2022 12:00 AM EST 12 EXTRACTION Routine 01/09/2022 12:00 AM EST 5 EXTRACTION Routine 01/09/2022 12:00 AM EST 3 EXTRACTION Routine 01/09/2022 12:00 AM EST 2 EXTRACTION Routine 01/09/2022 12:00 AM EST 1 EXTRACTION Routine 01/09/2022 12:00 AM EST documented in this encounter Visit Diagnoses Not on filedocumented in this encounter Care Teams Overnight Stocker Relationship Specialty Start Date End Date Sariah Vickers ANP [address] [place] [address] PCP - General Family Medicine 09/23/19 documented as of this encounter
--- OUTSIDE RECORDS SUMMARY | 2024-03-20 14:54 | XMS_ITS | Encounter Summary ---
Author Organization [employer] [facility] Address [address] [place] [address] 7t [place] [address] Care Team Providers Care Auditor Supervisor Name Role Phone Sariah Vickers Primary Care Provider [phone] Reason for Visit * Reason Onset Date Comments Nurse Triage 11/01/2022 Encounter Details Date Type Department Care Team (Late st Contact Info) Description 11/01/2022 Telephone [facility] MEDICINE [address] [place] [address] Sariah Vickers ANP [address] [place] [address] Nurse Triage Social History Tobacco Use Types Packs/Day Years Used Date Smoking Tobacco: Former Cigarettes 0.3 7 2 - 2016 Passive Smoke Exposure: Past Smokeless Tobacco: Never Alcohol Use Standard Drinks/Week Comments Not Currently 0 (1 standard drink = 0.6 oz pur e alcohol) PHQ-2 Answer Date Recorded Patient Health Questionnaire-2 Score 0 02/05/2022 Depression Answer Date Recorded Patient Health Questionnaire-2 Score 0 02/05/2022 Comments Unknown Sex and Gender Information Value Date Recorded Sex Assigned at Female 12/17/2021 10:16 AM EDT Legal Sex Female 10:16 AM EDT Gender Identity Female 12/17/2021 10:16 AM EDT Sexual Orientation Lesbian or Strong 12/17/2021 10 :16 AM EDT documented as of this encounter Miscellaneous Notes * Telephone Encounter - Patricia Beck RN - 11/01/2022 3:51 PM EDT Triage call with [employer] Premium Card Cancellation Clerk [place] [id number] Pt reports blood sugars have been high in the mornings 235-243. Pt was just in office for copd exacerbation 10/29/22. Pt was prescribed prednisone in a tapering dose and spiriva inhaler. Pt is taking ozempic to control blood sugar. Pt was educated by provider that increased blood sugar could occur and if it got to be over 400 to seek eval in ER. Reinforced this information for Pt. also advised to increase water intake, 8oz q4hrs as needed to bring blood sugar down. Pt agreed and reports understanding. Will seek eval in ed if needed. Protocol Used: Information Only Call - No Triage (Adult) Protocol-Based Disposition: Home Care Positive Triage Question: * General information question, no triage required and triager able to answer question * All higher-acuity triage questions were negative Care Advice Discussed: * Reasons To Call Back - New symptoms develop - You have more questions - You become worse * Telephone Encounter - Osiris Lam - 11/01/2022 2:57 PM EDT Symptom: High Blood Sugar - Caller Reports Outcome: Schedule an urgent appointment (within 1 hour) or talk to a nurse or provider soon Reason: Getting worse The caller accepted this outcome documented in this encounter Plan of Treatment Upcoming Encounters Date Type Department Care Team ([facility] st Contact Info) Description 04/09/2024 10:00 AM EST Office Visit [facility] ADULT DENTAL [address] [place] [address] Nuvia Duarte [address] [place] [address] 04/12/2024 1:30 PM EST Office Visit [facility] MEDICINE [address] [place] [address] Sariah Vickers ANP [address] [place] [address] 04/23/2024 11:30 AM EST Clinical Support [facility] MEDICINE [address] [place] [address] Azeb Hall RN 505 [place] [address] documented as of this encounter Goals Goal Patient Goal Type Associated Problems Recent Progress Patient-Stated? Author Blood Pressure < 140/90 Blood Pressure 130/91(2024 1:28 PM EST) No Aida Ragland PharmD Record Your Blood Sugar As Directed General No Aida Ragland PharmD Hemoglobin A1c < 7 Result Component 6.6( 8:44 AM EST) No Aida Ragland PharmD documented as of this encounter Visit Diagnoses Not on filedocumented in this encounter Care Teams Auditor Supervisor Relationship Specialty Start Date End Date Sariah Vickers ANP [address] [place] [address] PCP - General Family Medicine 09/23/19 documented as of this encounter
--- OUTSIDE RECORDS SUMMARY | 2024-03-20 14:54 | XMS_ITS | Encounter Summary ---
Author Organization [employer] [facility] Address [address] [place] [address] 7t [place] [address] Care Team Providers Care Utilization Specialist Name Role Phone Sariah Vickers Primary Care Provider [phone] Reason for Visit * Reason Comments Med Refill Encounter Details Date Type Department Care Team (Late Contact Info) Description 02/06/2022 Refill [facility] MEDICINE [address] [place] [address] Sariah Vickers ANP 230 [place] [address] Social History Tobacco Use Types Packs/Day Years Used Date Smoking Tobacco: Former Cigarettes 2 2016 Smokeless Tobacco: Never Alcohol Use Standard Drinks/Week [...] or Strong 12/17/2021 10 :16 AM EDT COVID-19 Exposure Response Date Recorded In the last 10 days, have yo u been in contact with someone who was confirmed or suspected to have Coronavirus/COVID-19? No / Unsure 02/05/2022 2:24 PM EST documented as of this encounter Plan of Treatment Upcoming Encounters Date Type Department Care Team (Late Contact Info) Description 04/09/2024 10:00 AM EST Office Visit [facility] ADULT DENTAL [address] [place] [address] FeliciaNuvia [address] [place] [address] 04/12/2024 1:30 PM EST Office Visit [address] [address] Sariah Vickers ANP [address] [place] [address] 04/23/2024 11:30 AM EST Clinical Support [address] [address] Azeb Hall, MARTIN 505 [place], [place] [phone] documented as of this encounter Visit Diagnoses Not on filedocumented in this encounter Care Teams Utilization Specialist Relationship Specialty Start Date End Date Sariah Vickers ANP [address] [place] [address] PCP - General Family Medicine 09/23/19 documented as of this encounter
--- OUTSIDE RECORDS SUMMARY | 2024-03-20 14:54 | XMS_ITS | Encounter Summary ---
Author Organization [employer] Address 75 [facility] 7t [place] [address] Care Team Providers Care Cardiac Exercise Physiologist Name Role Phone Sariah Vickers Primary Care Provider [phone] Encounter Details Date Type Department Care Team (Late st Contact Info) Description 03/17/[address] [facility] MEDICINE [address] [place] [address] Sariah Vickers ANP [address] [place] [address] Social History Tobacco Use Types Packs/Day Years [...] encounter Miscellaneous Notes * Telephone Encounter - Alonciara Rodrigo - 03/17/2024 11:11 AM EST A new referral is needed for this patient to enroll care in [facility] - Diabetes E11.69 clinic. Please send at your earliest convenience. documented in this encounter Plan of Treatment Upcoming Encounters Date Type Department Care Team (Late st Contact Info) Description 04/09/2024 10:00 AM EST Office Visit [facility] ADULT DENTAL [address] [place] [address] Nuvia Duarte [address] [place] [address] 04/12/2024 1:30 PM EST Office Visit [facility] MEDICINE [address] [place] [address] Sariah Vickers ANP [address] [place] [address] 04/23/2024 11:30 AM EST Clinical Support [facility] MEDICINE [address] [place] [address] Azeb Hall RN 505 [place] [address] documented as of this encounter Goals Goal Patient Goal Type Associated Problems Recent Progress Patient-Stated? Author Blood Pressure < 140/90 Blood Pressure 130/91(2024 1:28 PM EST) No Aida Ragland, PharmD Record Your Blood Sugar As Directed General No Aida Ragland PharmD Hemoglobin A1c < 7 Result Component 6.6( 4 8:44 AM EST) No Aida Ragland PharmD documented as of this encounter Visit Diagnoses Not on filedocumented in this encounter Additional Health Concerns Assessment Noted Time PHQ-9 Depression Total Score: 12 09/30/ 024 2:58 PM EDT documented as of this encounter Care Teams Cardiac Exercise Physiologist Relationship Specialty Start Date End Date Sariah Vickers ANP [address] [place] [address] PCP - General Family Medicine 09/23/19 documented as of this encounter
--- OUTSIDE RECORDS SUMMARY | 2024-03-20 14:54 | XMS_ITS | Encounter Summary ---
Author Organization [employer] Address 75 [facility] 7t [place] [address] Care Team Providers Care Patrol Guard Name Role Phone Sariah Vickers Primary Care Provider [phone] Encounter Details Date Type Department Care Team (Latest Contact Info) Description 03/17/2024 Travel Social History Tobacco Use Types Packs/Day Years [...] Description 04/09/2024 10:00 AM EST Office Visit [facility] ADULT DENTAL [address] [place] [address] Felicia, Nuvia [address] [place] [address] 04/12/2024 1:30 PM EST Office Visit [facility] MEDICINE [address] [place] [address] Sariah Vickers ANP 230 [place] [address] 04/23/2024 11:30 AM EST Clinical Support [address] [address] Azeb Hall, MARTIN [address] [place], [place] [phone] documented as of this encounter Goals Goal [...] documented as of this encounter Care Teams Patrol Guard Relationship Specialty Start Date End Date Sariah Vickers ANP [address] [place] [address] PCP - General Family Medicine 09/23/19 documented as of this encounter
--- OUTSIDE RECORDS SUMMARY | 2024-03-20 14:54 | XMS_ITS | Encounter Summary ---
Author Organization [employer] Address 75 [facility] 7t [place] [address] Care Team Providers Care Lockstitch Shoulder Joiner Name Role Phone Sariah Vickers Primary Care Provider [phone] Reason for Visit * Reason Comments Med Refill Encounter Details Date Type Department Care Team ([facility] st Contact Info) Description 03/13/2024 Refill [facility] [address] [place] [address] Sariah Vickers ANP 230 [place] [address] Severe persistent asthma without complication Social History Tobacco Use Types Packs/Day Years [...] EST Office Visit [facility] ADULT DENTAL [address] [place] [address] Nuvia Duarte [address] [place] [address] 04/12/2024 1:30 PM EST Office Visit [facility] MEDICINE [address] [place] [address] Sariah Vickers ANP [address] [place] [address] 04/23/2024 11:30 AM EST Clinical Support [address] [address] Azeb Hall, RN 505 [place] [address] documented as of this encounter Goals Goal Patient Goal Type Associated Problems Recent Progress Patient-Stated? Author Blood Pressure < 140/90 Blood Pressure 130/91(2024 1:28 PM EST) No Phanis-Gambl ciara, Aida, PharmD Record Your Blood Sugar As Directed General No Piers-Gambl e, Aida, PharmD Hemoglobin A1c < 7 Result Component 6.6( 8:44 AM EST) No Phanis-Gambl eAida, PharmD documented as of this encounter Visit Diagnoses Diagnosis Severe persistent asthma without complication documented in this encounter Additional Health Concerns Assessment Noted Time PHQ-9 Depression Total Score: 12 024 2:58 PM EDT documented as of this encounter Care Teams Lockstitch Shoulder Joiner Relationship Specialty Start Date End Date Sariah Vickers ANP 230 [place] [address] PCP - General Family Medicine 09/23/19 documented as of this encounter
--- OUTSIDE RECORDS SUMMARY | 2024-03-20 14:54 | XMS_ITS | Encounter Summary ---
Author Organization [employer] Address 75 [facility] 7t [place] [address] Care Team Providers Care Computer Applications Developer Name Role Phone Sariah Vickers Primary Care Provider [phone] Reason for Visit * Reason Comments Med Refill Encounter Details Date Type Department Care Team ([facility] st Contact Info) Description 08/22/2023 Refill [facility] MEDICINE [address] [place] [address] Sariah Vickers ANP [address] [place] [address] Neck pain Social History Tobacco Use Types Packs/Day Years Used Date Smoking Tobacco: Former Cigarettes 0.3 7 2 - 2016 Passive Smoke Exposure: Past Smokeless Tobacco: Never Alcohol Use Standard Drinks/Week Comments Not Currently 0 (1 standard drink = 0.6 oz pur e alcohol) Depression Answer Date Recorded Patient Health Questionnaire-9 Score 2 06/23/2023 Patient Health Questionnaire-9 Score 2 06/23/2023 Last PHQ-9: Questionnaire Data Not on file 0 06/23/2023 Housing Stability Answer Date Recorded What is [...] Date Recorded Patient Health Questionnaire-2 Score 0 06/23/2023 Comments Unknown Sex and Gender Information Value [...] Description 04/09/2024 10:00 AM EST Office Visit [facility] ADULT DENTAL [address] [place] [address] Nuvia Duarte [address] [place] [address] 04/12/2024 1:30 PM EST Office Visit [facility] MEDICINE [address] [place] [address] Sariah Vickers ANP 230 [place] [address] 04/23/2024 11:30 AM EST Clinical Support [facility] MEDICINE [address] [place] [address] Azeb Hall, MARTIN [address] [place] [address] documented as of this encounter Goals Goal Patient Goal Type Associated Problems Recent Progress Patient-Stated? Author Blood Pressure < 140/90 Blood Pressure 130/91(2024 1:28 PM EST) No Piers-Gambl e, Aida, PharmD Record Your Blood Sugar As Directed General No Piers-Gambl e, Aida, PharmD Hemoglobin A1c < 7 Result Component 6.6( 4 8:44 AM EST) No Piers-Gambl e, Aida, PharmD documented as of this encounter Visit Diagnoses Diagnosis Neck pain Cervicalgia documented in this encounter Additional Health Concerns Assessment Noted Time PHQ-9 Depression Total Score: 2 06/23/19 24 2:10 PM EDT documented as of this encounter Care Teams Computer Applications Developer Relationship Specialty Start Date End Date Sariah Vickers ANP 230 [place] [address] PCP - General Family Medicine 09/23/19 documented as of this encounter
--- OUTSIDE RECORDS SUMMARY | 2024-03-20 14:54 | XMS_ITS | Encounter Summary ---
Author Organization [employer] Address [address] [facility] 7[address] [place] [address] Care Team Providers Care Operating Room Orderly Name Role Phone Sariah Vickers Primary Care Provider [phone] Reason for Visit * Reason Comments Abscess Encounter Details Date Type Department Care Team ([facility] st Contact Info) Description 02/23/2024 2:00 PM EST Office Visit [facility] [address] [place] [address] Marianna Manzo MD [address] [place] [address] Panniculitis affecting sacrum (Primary Dx) Social History Tobacco Use Types Packs/Day Years Used Date Smoking Tobacco: Former Cigarettes 0.3 7 2 010 - 2016 Passive Smoke Exposure: Past Smokeless Tobacco: Never Tobacco Cessation:Counseling Given: Not Answered Alcohol Use Standard Drinks/Week Comments Not Currently [...] AM EDT documented as of this encounter Last Filed Vital Signs Vital Sign Reading Time Taken Comments Blood Pressure 122/86 02/23/2024 2:05 PM EST Pulse 96 02/23/2024 2:05 PM EST Temperature 37.2 ??C (98.9 ??F) 02/23/2024 2:05 PM ES T Respiratory Rate 17 02/23/2024 2:05 PM EST Oxygen Saturation - - Inhaled Oxygen Concentration - - Weight 85.6 kg (188 lb 12.8 oz) 02/23/2024 2:05 PM EST Height 162.6 cm (5' 4 ) 02/23/2024 2:05 PM EST Body Mass Index 32.41 02/23/2024 2:05 PM EST documented in this encounter Progress Notes * Marianna Manzo MD - 02/23/2024 2:00 PM EST Images from the original note were not included. SUBJECTIVE: Nuvia Ho is a 63 y.o. year old female who presents for Walk In Center/skin bump . Denies recent illness, injury, or hospitalization. Acute Concerns: Patient co bump on her buttocks for 1w that is increasing in size since. She had fever x 2d, now resolved. Neg vaginal discharge although she has a similar induration on vulvar area. She saw VENDING ROUTE SERVICER lastweek and she was neg for BV. Social History Social History Narrative Not on file Patient Active Problem List Diagnosis Aneurysm of left internal carotid artery Anxiety state Chronic obstructive lung disease (CMS/HCC) Constipation Essential hypertension Gastroesophageal reflux disease Increased immunoglobulin Insomnia disorder with non-sleep disorder mental comorbidity Mixed anxiety and depressive disorder Neck pain Paresis of one side of face Paresthesia Type 2 diabetes mellitus with hyperlipidemia (CMS/HCC) Right foot pain Allergic rhinitis Atypical chest pain Bilateral knee pain Calculus of kidney Carpal tunnel syndrome of right wrist Chronic idiopathic constipation Chronic SI joint pain History of COVID-19 Ectatic aorta (CMS/HCC) Hemorrhoids Environmental allergies High cholesterol Hypothyroidism Menopausal state OKEEFE (nonalcoholic steatohepatitis) Non-toxic multinodular goiter Osteoarthritis of knees, bilateral Patellofemoral arthritis of left knee Plantar fasciitis Severe persistent allergic asthma Former smoker Spondylosis of lumbar region without myelopathy or radiculopathy Trochanteric bursitis of right hip Tubular adenoma of colon Varicose veins of left lower extremity with inflammation Weakness COPD with asthma (CMS/HCC) COPD exacerbation (CMS/HCC) Nausea Depression with anxiety PTSD (post-traumatic stress disorder) Fibromyalgia Dental calculus Gingival recession, generalized Acute cough Right bundle branch block Excessive attrition of teeth, generalized Moderate episode of recurrent major depressive disorder (CMS/HCC) COVID-19 Abnormal finding on ultrasound Abnormal ultrasound of kidney Cellulitis of labia Leg pain Osteoarthritis of first carpometacarpal (CMC) joint of one hand Small bowel motility disorder Smoker Tear of medial meniscus of left knee Trigger finger of left thumb Bilateral renal cysts Kidney stone on left side Asthma-COPD overlap syndrome (CMS/HCC) Type 2 diabetes mellitus (CMS/HCC) Panniculitis affecting sacrum Family History Problem Relation Name Age of Onset Diabetes Other Review of Systems Constitutional: Negative for chills, fatigue and fever. HENT: Negative for congestion, ear pain, nosebleeds, rhinorrhea, sinus pressure, sore throat and trouble swallowing. Eyes: Negative for pain and discharge. Respiratory: Negative for cough, chest tightness and shortness of breath. Cardiovascular: Negative for chest pain, palpitations and leg swelling. Gastrointestinal: Negative for abdominal pain, blood in stool, constipation, diarrhea and nausea. Endocrine: Negative for polydipsia and polyuria. Genitourinary: Negative for dysuria, frequency, genital sores, pelvic pain and vaginal discharge. Musculoskeletal: Negative for back pain and neck pain. Skin: Positive for color change. Negative for rash. Allergic/Immunologic: Negative for environmental allergies. Neurological: Negative for dizziness, seizures, weakness, light-headedness and headaches. Hematological: Negative for adenopathy. Psychiatric/Behavioral: Negative for agitation, behavioral problems, self-injury and suicidal ideas. OBJECTIVE: Vitals: 02/23/24 1405 BP: 122/86 Pulse: 96 Resp: 17 Temp: 98.9 ??F (37.2 ??C) Physical Exam Parts Cataloguer present: Luiza Eddy [place]. HENT: Right Ear: Tympanic membrane and ear canal normal. Left Ear: Tympanic membrane and ear canal normal. Mouth/Throat: Mouth: Mucous membranes are moist. Pharynx: No oropharyngeal exudate or posterior oropharyngeal erythema. Eyes: Pupils: Pupils are equal, round, and reactive to light. Cardiovascular: Rate and Rhythm: Regular rhythm. Pulses: Normal pulses. Heart sounds: Normal heart sounds. No murmur heard. Pulmonary: Breath sounds: Normal breath sounds. Abdominal: General: Bowel sounds are normal. Palpations: Abdomen is soft. Tenderness: There is no abdominal tenderness. Genitourinary: Labia: Left: Lesion (indurated, tender < 1cm lesion towards the mid of the labia, no discharge.) present. Musculoskeletal: General: Normal range of motion. Cervical back: Neck supple. Skin: General: Skin is warm. Comments: 5cm area of erythema and induration on left buttock extending to left Sacrococcygeal area, somewhat tender to palpation, has a purulent scab on top. Neurological: General: No focal deficit present. Mental Status: She is alert and oriented to person, place, and time. Psychiatric: Mood and Affect: Mood normal. Behavior: Behavior normal. ASSESSMENT/PLAN Problem List Items Addressed This Visit Panniculitis affecting sacrum - Primary Advised to apply heat to affected area bid Rx bactrim to cover MRSA as she recently used PCN and quinolone FU with PCP in 1w to see if it need further I&D Take tylenol prn pain/fever/ Follow Up: Current Outpatient Medications on File Prior to Visit Medication Sig Dispense Refill acetaminophen (Tylenol) 325 MG tablet TAKE 1 TO 2 TABLETS BY MOUTH EVERY 6 HOURS NEEDED 120 tablet 1 Alcohol Swabs (Alcohol Prep) 70 % pads USE DAILY DIRECTED 100 each 11 amLODIPine (Norvasc) 10 MG tablet TAKE 1 TABLET BY MOUTH EVERY EVENING 90 tablet 1 atorvastatin (Lipitor) 80 MG tablet TAKE 1 TABLET BY MOUTH AT BEDTIME 90 tablet 1 Baqsimi Two Pack 3 MG/DOSE nasal powder USE 1 SPRAY (3MG) IN ONE NOSTRIL FOR A PATIENT WITH SEVERE HYPOGLYCEMIA WHO IS NOT RESPONSIVE AND UNABLE SELF-TREAT WITH GLUCOSE. AFTERWARDS TURN ON SIDE. MAY REPEAT IN 15MINUTES IF PATIENT DOES NOT RESPOND. 2 each 1 Blood Glucose Monitoring Suppl (FreeStyle Oronogo Lite) w/Device kit USE DIRECTED busPIRone (Buspar) 15 MG tablet Take 15 mg by mouth 3 times daily. cetirizine (ZyrTEC) 10 MG tablet Take 1 tablet by mouth at bed time. clonazePAM (KlonoPIN) 1 MG tablet Take 1 tablet daily, may take an additional 1/2 tablet daily at bedtime as needed Combivent Respimat 20-100 MCG/ACT inhaler INHALE 1 PUFF FOUR TIMES DAILY Continuous Glucose Button Buttonhole Marker (FreeStyle Jalil 2 [place]) device Use to check blood sugar at least every 8 hours 1 each 0 Diclofenac Sodium 1 % gel APPLY 2 GRAMS TOPICALLY TO AFFECTED AREA(S) ONCE DAILY NEEDED FOR [id number] g 1 docusate sodium (Colace) 100 MG capsule Take 1 capsule by mouth every 12 (twelve) hours. enalapril (Vasotec) 20 MG tablet TAKE 1 TABLET BY MOUTH EVERY MORNING 30 tablet 1 famotidine (Pepcid) 20 MG tablet Take 1 tablet (20 mg) by mouth 2 times daily. 60 tablet 11 fluticasone (Flonase) 50 MCG/ACT nasal spray INHALE 2 PUFFS BY MOUTH EVERY MORNING 16 g 3 Fluticasone-Salmeterol 250-50 MCG/ACT aerosol powder INHALE 1 PUFF BY MOUTH 12 HOURS APART 60 each 5 gabapentin (Neurontin) 400 MG capsule TAKE 1 CAPSULE BY MOUTH AT BEDTIME 30 capsule 2 glucose 4 g chewable tablet CHEW 4 TABLETS BY MOUTH NEEDED LOW FOR BLOOD SUGAR 50 tablet 12 glucose blood (FREESTYLE LITE) test strip 1 strip at bed time. insulin lispro (HumaLOG KWIKPEN) 100 UNIT/ML injection Inject 2 Units under the skin with breakfast, with lunch, and with evening meal. As needed as directed by provider 6 mL 1 ipratropium-albuterol (Duo-Neb) 0.5-2.5 mg/3 mL nebulizer solution INHALE 1 AMPULE USING A NEBULIZER EVERY 6 HOURS NEEDED 90 mL 5 Lactobacillus-Inulin ([facility] Exaptive [facility]) capsule TAKE 1 CAPSULE BY MOUTH EVERY DAY levothyroxine (Synthroid, Levoxyl) 75 MCG tablet Take 1 tablet by mouth at bed time. lidocaine (Lidoderm) 5 % patch APPLY 1 PATCH TOPICALLY TO SKIN, LEAVE ON FOR 12 HOURS AND OFF FOR 12 HOURS DIRECTED 30 patch 1 [] methylPREDNISolone (Medrol Dospak) 4 MG tablets Follow schedule on package instructions 21 tablet 0 metoclopramide (Reglan) 10 MG tablet TAKE 1 TABLET BY MOUTH THREE TIMES DAILY Misc. Devices (Pulse Oximeter For Finger) misc 1 each 2 times daily. 1 each 0 montelukast (Singulair) 10 MG tablet TAKE 1 TABLET BY MOUTH EVERY EVENING 90 tablet 1 Multiple Vitamins-Minerals (CertaVite/Antioxidants) tablet TAKE 1 TABLET BY MOUTH EVERY MORNING 90 tablet 3 naloxone (Narcan) 4 mg/0.1 mL nasal spray Administer 1 spray (4 mg) into affected nostril(s) if needed for opioid reversal. 2 each 0 omeprazole (PriLOSEC) [address] capsule Take 1 capsule by mouth every 12 (twelve) hours. Ozempic, 0.25 or 0.5 MG/DOSE, 2 MG/3ML solution pen-injector INJECT 0.5 MG SUBCUTANEOUSLY EVERY 7 DAYS IN THE ABDOMEN, THIGHS, OR UPPER ARM, ROTATE INJECTION SITES. 3 mL 1 plecanatide (Trulance) tablet tablet Take 1 tablet by mouth at bed time. potassium chloride CR (Klor-Con M20) 20 MEQ ER tablet TAKE 1 TABLET BY MOUTH TWICE DAILY IN THE MORNING AND IN THE EVENING WITH FOOD 180 tablet 1 pyridoxine (Vitamin B-6) 100 MG tablet TAKE 1 TABLET BY MOUTH ONCE DAILY risperiDONE (RisperDAL) 0.5 MG tablet Take 1 tablet by mouth in the morning and at bedtime. senna (Senokot) 8.6 MG tablet TAKE 2 TABLETS BY MOUTH EVERY DAY AT BEDTIME FOR CONSTIPATION 180 tablet 0 TechLite Plus Pen [place] 32G X 4 MM mis USE DIRECTED THREE TIMES DAILY 100 each 5 tiotropium (Spiriva HandiHaler) [address] 1 capsule into inhaler and inhale at bed time. traMADol (Ultram) 50 MG tablet TAKE 1 TABLET BY MOUTH EVERY TWELVE HOURS NEEDED FOR SEVERE PAIN 60 tablet 0 TRUEplus Lancets 33G [facility] TEST BLOOD SUGAR THREE TIMES DAILY Ventolin HFA 108 (90 Base) MCG/ACT inhaler INHALE 2 PUFFS BY MOUTH EVERY 4 TO 6 HOURS NEEDED 18 g 2 Xolair 150 MG/ML injection Reconstitute as directed and inject subcutaneously once weekly (administered in office) zolpidem (Ambien) 10 MG tablet Take 1 tablet by mouth in the morning. [DISCONTINUED] amoxicillin-clavulanate (Augmentin) 875-125 MG tablet Take 1 tablet by mouth 2 timesdaily. 14 tablet 0 [DISCONTINUED] ipratropium-albuterol (Duo-Neb) 0.5-2.5 mg/3 mL nebulizer solution INHALE 1 AMPULE USING A NEBULIZER EVERY 6 HOURS NEEDED 90 mL 5 No current facility-administered medications on file prior to visit. documented in this encounter Miscellaneous Notes * Assessment & Plan Note - Marianna Manzo MD - 02/23/2024 2:34 PM EST Associated Problem(s): Panniculitis affecting sacrum Advised to apply heat to affected area bid Rx bactrim to cover MRSA as she recently used PCN and quinolone FU with PCP in 1w to see if it need further I&D Take tylenol prn pain/fever/ documented in this encounter Plan of Treatment Upcoming Encounters Date Type Department Care Team (Late st Contact Info) Description 04/09/2024 10:00 AM EST Office Visit [facility] [address] [place], [place] [phone] Nuvia Duarte [address] [place] [address] 04/12/2024 1:30 PM EST Office Visit [facility] MEDIC[facility] [address] [place] [address] Sariah Vickers ANP [address] [place] [address] 04/23/2024 11:30 AM EST Clinical Support [facility] [address] [place] [address] Azeb Hall RN [address] [place] [address] documented as of this encounter Goals Goal [...] as of this encounter Visit Diagnoses Diagnosis Panniculitis affecting sacrum- Primary Other symptoms referable to back documented in this encounter Additional Health Concerns Assessment Noted Time PHQ-9 Depression Total Score: 12 024 2:58 PM EDT documented as of this encounter Care Teams Operating Room Orderly Relationship Specialty Start Date End Date Sariah Vickers ANP [address] [place] [address] PCP - General Family Medicine 09/23/19 documented as of this encounter
--- OUTSIDE RECORDS SUMMARY | 2024-03-20 14:54 | XMS_ITS | Encounter Summary ---
Author Organization [employer] Address [address] [facility] [address] [place] [address] Care Team Providers Care Door Frame Assembler Machine Name Role Phone Sariah Vickers Primary Care Provider [phone] Encounter Details Date Type Department Care Team (Late st Contact Info) Description 03/20/2024 Orders Only GENERIC EXTERNAL DATA DEPARTMENT Provider, Generic External Data Social History Tobacco Use Types Packs/Day Years [...] Description 04/09/2024 10:00 AM EST Office Visit [facility] ADULT [facility] [address] [place] [address] Felicia, Nuvia [address] [place] [address] 04/12/2024 1:30 PM EST Office Visit [facility] MEDICINE [address] [place] [phone] Sariah Vickers ANP [address] [place] [address] 04/23/2024 11:30 AM EST Clinical Support [facility] [address] [place] [phone] Azeb Hall, RN [address] [place], [place] [phone] documented as of this encounter Goals Goal Patient Goal Type Associated Problems Recent Progress Patient-Stated? Author Blood Pressure < 140/90 Blood Pressure 130/91(2024 1:28 PM EST) No Aida Ragland, PharmD Record Your Blood Sugar As Directed General No Aida Ragland, PharmD Hemoglobin A1c < 7 Result Component 6.6( 8:44 AM EST) No Aida Ragland, PharmD documented as of this encounter Procedures Procedure Name Priority Date/Time Associated Diagnosis Comments CBC WITH AUTO DIFFERENTIAL Routine 03/20/2024 2:28 PM EST C-REACTIVE PROTEIN Routine 03/20/2024 2: 28 PM EST MAGNESIUM Routine 03/20/2024 2:28 PM EST HEPATIC FUNCTION PANEL Routine 03/20/2024 2:28 PM EST BASIC METABOLIC PANEL Routine 03/20/2024 2:28 PM EST documented in this encounter Results * (ABNORMAL) C-reactive Protein (03/20/2024 2:28 PM EST) Pathologist [facility] C Reactive Protein 3.90(H) < or = 0.50 mg/dL [facility] 03/20/2024 2:28 PM EST 03/20/2024 2:33 PM EST us Generic External Data Provider LAB BLOOD ORDERAB LES Final Result Performing Organization Address City/[facility]/ZIP Co de Phone Number [facility] [address] [place] [phone] * Magnesium (03/20/2024 2:28 PM EST) Pathologist [facility] Magnesium 2.2 1.6 - 2.6 mg/dL [facility] 03/20/2024 2:28 PM EST 03/20/2024 2:33 PM EST Generic External Data Provider LAB BLOOD ORDERAB LES Final Result Performing Organization Address [facility]/ZIP Co de Phone Number [facility] [address] [place] [phone] * (ABNORMAL) Basic Metabolic Panel (03/20/2024 2:28 PM EST) Pathologist [facility] Sodium 143 135 - 145 mmol/L [facility] Potassium 3.7 3.3 - 5.1 mmol/L [facility] Chloride 112(H) 96 - 108 mmol/L [facility] Carbon Dioxide 23 22 - 29 mmol/L [facility] Anion Gap 12 12 - 20 [facility] Urea Nitrogen (BUN) 13 9 - 16 mg/dL [facility] Creatinine, Serum 0.82 0.5 - 1.4 mg/dL [facility] Creatinine Clr Calc Pharmacy 73.7 [facility] Comment:Provided height and weight: 157.48 cm,91.172 kg.eGFR (calculated from the MDRD study equation) and eCrCl(calculated from the Cockcroft-Gault equation) are based ondifferent parameters and may not yield comparable results.If eCrCl result is absurd, please check patient'sheight/weight. Estimated Glomerular Filt Rate >60 [facility] Comment:Chronic Kidney Disea se: Estimated GFR < 60 mL/min/[id number] Kidney Disease: Estimated GFR < 15 mL/min/1.73m2 Glucose 112 60 - 115 mg/dL [facility] Calcium 8.7 8.4 - 10.2 mg/dL [facility] 03/20/2024 2:28 PM EST 03/20/2024 2:33 PM EST us Generic External Data Provider LAB BLOOD ORDERAB LES Final Result [facility] [address] [place] [address] [phone] * (ABNORMAL) Hepatic Function Panel (03/20/2024 2:28 PM EST) Bilirubin, Total 0.4 0.0 - 1.0 mg/dL [facility] Bilirubin, Direct 0.2 0.0 - 0.5 mg/dL [facility] Aspartate Amino Transferase 173(H) 5 - 31 U/L [facility] Alanine Aminotransferase 249(H) 0 - 31 U/L [facility] Total Protein 7.8 6.5 - 8.0 g/dL [facility] Albumin Level 3.8 3.5 - 5.0 g/dL [facility] Alkaline Phosphatase 138(H) 39 - 117 U/L [facility] 03/20/2024 2:28 PM EST 03/20/2024 2:33 PM EST us Generic External Data Provider LAB BLOOD ORDERAB LES Final Result [facility] [address] [place], [place] [phone] * (ABNORMAL) CBC auto differential (03/20/2024 2:28 PM EST) White Blood Count 6.8 4.8 - 10.8 X10*3/uL [facility] Red Blood Count 4.08(L) 4.20 - 5.50 X10*6/uL [facility] Hemoglobin 13.0 12.0 - 16.0 g/dl [facility] Hematocrit 38.0 37.0 - 47.0 % [facility] Mean Corpuscular Volume 93.1 80.0 - 98.0 fL [facility] Mean Corpuscular Hemoglobin 31.9 27.0 - 33.0 pg [facility] Mean Corpuscular HGB Conc 34.2 31.0 - 35.0 g/dl [facility] Red Cell Distribution Width 14.1 11.0 - 16.0 % [facility] Platelet Count 280 160 - 400 X10*3/uL [facility] Mean Platelet Volume 9.2(L) 9.4 - 12.3 fL [facility] Neutrophils Percent Auto 53.1 45 - 73 % [facility] Imm Gran Pct Auto 0.1 0.0 - 0.4 % [facility] Lymphocytes Percent Auto 36.2 20 - 40 % [facility] Monocytes Percent Auto 7.9 2 - 11 % [facility] Eosinophils Percent Auto 2.4 0 - 4 % [facility] Basophils Percent Auto 0.3 0 - 2 % [facility] NRBC Pct Auto 0.0 0.0 - 0.2 /100WBC [facility] Neutrophils Absolute Auto 3.6 2.0 - 8.3 x10*3/uL [facility] Imm Gran Abs Auto 0.01 0.00 - 0.03 X10*3/uL [facility] Lymphocytes Absolute Auto 2.5 1.2 - 4.9 X10*3/uL [facility] Monocytes Absolute Auto 0.5 0.1 - 1.2 X10*3/uL [facility] Eosinophils Absolute Auto 0.2 0.0 - 0.4 X10*3/uL [facility] Basophils Absolute Auto 0.0 0.0 - 0.2 X10*3/uL [facility] NRBC Abs Auto 0.000 0.0 - 0.012 X10*3/uL [facility] 03/20/2024 2:28 PM EST 03/20/2024 2:33 PM EST us Generic External Data Provider LAB BLOOD ORDERAB LES Final Result Performing Organization Address City/State/[facility] Co de Phone Number [facility] [address] [place] [address] [phone] documented in this encounter Visit Diagnoses Not on filedocumented in this encounter Additional Health Concerns Assessment Noted Time PHQ-9 Depression Total Score: 12 024 2:58 PM EDT documented as of this encounter Care Teams Door Frame Assembler Machine Relationship Specialty Start Date End Date Sariah Vickers ANP [address] [place] [address] PCP - General Family Medicine 09/23/19 documented as of this encounter
--- OUTSIDE RECORDS SUMMARY | 2024-03-20 14:54 | XMS_ITS | Encounter Summary ---
Author Organization [employer] Address [address] [facility] [address] [place] [address] Care Team Providers Care Manager Of Health Name Role Phone Sariah Vickers Primary Care Provider [phone] Reason for Visit * Reason Comments Med Refill Encounter Details Date Type Department Care Team ([facility] Contact Info) Description 09/13/2022 Refill [facility] MED & PEDS [address] [place] [address] Sariah Vickers ANP [address] [place] [address] Severe persistent allergic asthma without complication Social History Tobacco Use [...] suspected to have Coronavirus/COVID-19? No / Unsure 08/21/2022 8:43 AM EDT documented as of this encounter Plan of Treatment Upcoming Encounters Date Type Department Care Team ([facility] Contact Info) Description 04/09/2024 10:00 AM EST Office Visit [facility] ADULT DENTAL [address] [place] [phone] Brendan Duartearis [address] [place] [address] 04/12/2024 1:30 PM EST Office Visit [address] [address] Sariah Vickers ANP [address] [place] [phone] 04/23/2024 11:30 AM EST Clinical Support [address] [address] Azeb Hall, MARTIN [address] [place] [address] documented as of this encounter Visit Diagnoses Diagnosis Severe persistent allergic asthma without complication documented in this encounter Care Teams Manager Of Health Relationship Specialty Start Date End Date Sariah Vickers ANP [address] [place] [phone] PCP - General Family Medicine 09/23/19 documented as of this encounter
--- OUTSIDE RECORDS SUMMARY | 2024-03-20 14:54 | XMS_ITS | Encounter Summary ---
Author Organization [employer] Address [address] [facility] 7t [place] [address] Care Team Providers Care Payroll Representative Name Role Phone Sariah Vickers Primary Care Provider [phone] Reason for Visit * Reason Onset Date Comments Med Refill 02/04/2024 Encounter Details Date Type Department Care Team ([facility] st Contact Info) Description 02/04/2024 Telephone [facility] MEDICINE [address] [place] [address] Sariah Vickers ANP [address] [place] [address] Med Refill Social History Tobacco Use Types Packs/Day Years [...] encounter Miscellaneous Notes * Telephone Encounter - Blas Wallace - 02/04/2024 1:07 PM EST TC from pt requesting medication refill. Medications needing refill: traMADol (Ultram) 50 MG tablet To be sent to: [facility] - [place], [place] - [address] [place] [address] documented in this encounter Plan of Treatment Upcoming Encounters Date Type Department Care Team ([facility] st Contact Info) Description 04/09/2024 10:00 AM EST Office Visit [facility] ADULT DENTAL [address] [place] [address] Brendan Duartearis [address] [place] [address] 04/12/2024 1:30 PM EST Office Visit [facility] MEDICINE [address] [place] [address] Sariah Vickers ANP [address] [place] [address] 04/23/2024 11:30 AM EST Clinical Support [facility] [address] [place] [address] Azeb Hall RN [address] [place] [address] documented as of this encounter Goals Goal Patient Goal Type Associated Problems Recent Progress Patient-Stated? Author Blood Pressure < 140/90 Blood Pressure 130/91(2024 1:28 PM EST) No Phanis-Gambl Veronica urbinasa, PharmD Record Your Blood Sugar As Directed General No Phanis-Gambl Aida urbina, PharmD Hemoglobin A1c < 7 Result Component 6.6( 8:44 AM EST) No Katelin-iAda Medina PharmD documented as of this encounter Visit Diagnoses Not on filedocumented in this encounter Additional Health Concerns Assessment Noted Time PHQ-9 Depression Total Score: 12 024 2:58 PM EDT documented as of this encounter Care Teams Payroll Representative Relationship Specialty Start Date End Date Sariah Vickers ANP [address] [place] [address] PCP - General Family Medicine 09/23/19 documented as of this encounter
--- OUTSIDE RECORDS SUMMARY | 2024-03-20 14:54 | XMS_ITS | Encounter Summary ---
Author Organization [employer] [facility] Address [address] [facility] 7t [place] [address] Care Team Providers Care Baseball Umpire For Little League Name Role Phone Sariah Vickers Primary Care Provider [phone] Reason for Visit * Reason Onset Date Comments Nurse Triage 02/23/2024 Encounter Details Date Type Department Care Team ([facility] st Contact Info) Description 02/23/2024 Telephone [facility] MEDICINE [address] [place] [address] Sariah Vickers ANP [address] [place] [address] Nurse Triage Social History Tobacco Use Types [...] encounter Miscellaneous Notes * Telephone Encounter - Gina Andersen LPN - 02/23/2024 1:37 PM EST Triage call returned with BLS # [id number] [place]. Patient reports that they are in the [facility] [place] at time of call waiting to be seen by a provider. Advised to follow all MD instructions and to call back to [facility] @ [phone] as needed. Patient verbalized understanding and in agreement with plan. * Telephone Encounter - Nuvia Vila - 02/23/2024 12:04 PM EST Symptom: Abscess - Caller Reports Outcome: Schedule an urgent appointment (within 4 hours) or talk to a nurse or provider soon Reason: Growing rapidly The caller accepted this outcome. Contact pt at [phone] (icelandic) documented in this encounter Plan of Treatment Upcoming Encounters Date Type Department Care Team (Late st Contact Info) Description 04/09/2024 10:00 AM EST Office Visit [facility] ADULT DENTAL [address] [place] [address] Felicia, Nuvia [address] [place] [address] 04/12/2024 1:30 PM EST Office Visit [facility] MEDICINE [address] [place] [address] Sariah Vickers ANP [address] [place] [address] 04/23/2024 11:30 AM EST Clinical Support [facility] MEDICINE [address] [place] [address] Azeb Hall, MARTIN [address] [place] [address] documented as of this encounter Goals Goal Patient Goal Type Associated Problems Recent Progress Patient-Stated? Author Blood Pressure < 140/90 Blood Pressure 130/91(2024 1:28 PM EST) No Phanis-Gambl Aida urbina, PharmD Record Your Blood Sugar As Directed General No Phanis-Gambl eVeronicasa, PharmD Hemoglobin A1c < 7 Result Component 6.6( 4 8:44 AM EST) No Piers-Gambl eAida PharmD documented as of this encounter Visit Diagnoses Not on filedocumented in this encounter Additional Health Concerns Assessment Noted Time PHQ-9 Depression Total Score: 12 024 2:58 PM EDT documented as of this encounter Care Teams Baseball Umpire For [employer] Relationship Specialty Start Date End Date Sariah Vickers ANP [address] [place] [address] PCP - General Family Medicine 09/23/19 documented as of this encounter
--- OUTSIDE RECORDS SUMMARY | 2024-03-20 14:54 | XMS_ITS | Encounter Summary ---
Author Organization [employer] Address [address] [facility] 7t [place] [address] Care Team Providers Care Heel Dipper Name Role Phone Anthony Ruiz Primary Care Provider Encounter Details Date Type Department Care Team (Late st Contact Info) Description 02/19/2024 Orders Only GENERIC EXTERNAL DATA DEPARTMENT Provider, [...] Description 04/09/2024 10:00 AM EST Office Visit [facility] ADULT DENTAL [address] [place] [address] Felicia, Nuvia [address] [place] [address] 04/12/2024 1:30 PM EST Office Visit [facility] MEDICINE [address] [place] [address] Anthony Ruiz ANP [address] [place] [address] 04/23/2024 11:30 AM EST Clinical Support [facility] MEDICINE [address] [place] [address] Azeb Hall, RN [address] [place], [place] [phone] documented as of this encounter Goals Goal Patient Goal Type Associated Problems Recent Progress Patient-Stated? Author Blood Pressure < 140/90 Blood Pressure 130/91(2024 1:28 PM EST) No Aida Ragland, PharmD Record Your Blood Sugar As Directed General No Phanis-Veronica Medinasa, PharmD Hemoglobin A1c < 7 Result Component 6.6( 8:44 AM EST) No Aida Ragland, PharmD documented as of this encounter Procedures Procedure Name Priority Date/Time Associated Diagnosis Comments XR CHEST 1 VIEW Routine 02/29/2024 1:36 PM EST BACTERIAL VAGINOSIS PANEL Routine 02/19/2024 1:18 PM EST documented in this encounter Results * XR Chest 1 View (02/29/2024 1:36 PM EST) Anatomical Region Laterality Modality Chest Radiographic Griselda ging 02/29/2024 1:36 PM EST Narrative 02/29/2024 1:38 PM EST ? [facility] ?[address] ?[place] [address] ?XRay Report ? Signed ? Patient: Avinash Ho,Nuvia E ?MR ?? #: [id number] ? : 1960 ?Acct:[id number] ? Age/Sex: 63 / F ?ADM Date: 02/29/24 ? Loc: HO.ED ? Attending Dr: ? Ordering Physician: Kourtney Jones MD ?? Date of Service: 02/29/24 ?? Procedure(s): XR chest 1V ?? Accession Number(s): [id number] ? cc: Kourtney Jones MD; ANTHONY RUIZ NP ? CLINICAL HISTORY: cp ? Chest Radiograph ? Comparison: None ? Findings: ?? No cardiomegaly. ?? Normal mediastinal contours. ?? No pneumothorax. Opacity in the right lower lung zone is favored to be ?? secondary to artifact. No pleural effusion. ?? Normal upper abdomen. ?? No acute fracture. ? Impression: ?? No acute findings. ? This document has been electronically signed by: Ligia Argueta MD ?? on 02/29/2024 13:36:48 ? Dictated By: ?Ligia Myrick MD ? Signed By: ?<Electronically signed by Ligia Myrick MD in OV> ? 02/29/24 1337 ? DD/ 1336 ? TD/TT: 02/29/24 1336 ? Supervisor Safety Deposit: ? Procedure Note Otoniel, Image - 02/29/[address] [address] XRay Report Signed Patient: Nuvia Fay EMR #: [id number] : 1Acct:[id number] Age/Sex: 63 / FADM Date: 02/29/24 Loc: HO.ED Attending Dr: Ordering Physician: Kourtney Jones MD Date of Service: 02/29/24 Procedure(s): XR chest 1V Accession Number(s): [id number] cc: Kourtney Jones MD; ANTHONY RUIZ NP CLINICAL HISTORY: cp Chest Radiograph Comparison: None Findings: No cardiomegaly. Normal mediastinal contours. No pneumothorax. Opacity in the right lower lung zone is favored to be secondary to artifact. No pleural effusion. Normal upper abdomen. No acute fracture. Impression: No acute findings. This document has been electronically signed by: Ligia Argueta MD on 02/29/2024 13:36:48 Dictated By: Ligia Myrick MD Signed By: <Electronically signed by Ligia Myrick MD in OV> 02/29/24 1337 DD/ 35 TD/TT: 02/29/241335 Supervisor Safety Deposit: [facility] External Provider IMG XR PROCEDURES Edited Result - Final * Bacterial Vaginosis (02/19/2024 1:18 PM EST) TRICHOMONAS VAGINALIS DETECTION BY PCR NOT DETECTED Not Detect [facility] BACTERIAL VAGINOSIS DETECTION BY PCR NEGATIVE Negative [facility] Comment:The BV organism targ ets of the Xpert Xpress MVP test can becommensal in women; Xpert Xpress MVP positive results forbacterial vaginosis should be considered in conjunction withother clinical and patient information to determine thedisease status. Organisms that are not detected by the XpertXpress MVP test have also been reported to be associatedwith BV and aerobic vaginitis.The Xpert Xpress MVP test performance has not been evaluatedin patients under the age of 14. EUFEMIA GROUP DETECTION BY PCR NOT DETECTED Not Detect [facility] Eufemia glab krusei PCR NOT DETECTED Not Detect [facility] 02/19/2024 1:18 PM EST 02/19/2024 3:45 PM EST Generic External Data Provider LAB MICROBIOLOGY - GENERAL ORDERABLES Final Result [facility] [address] [place] [phone] documented in this encounter Visit Diagnoses Not on filedocumented in this encounter Additional Health Concerns Assessment Noted Time PHQ-9 Depression Total Score: 12 024 2:58 PM EDT documented as of this encounter Care Teams Heel Dipper Relationship Specialty Start Date End Date Anthony Ruiz ANP [address] [place] [address] PCP - General Family Medicine 09/23/19 documented as of this encounter
--- OUTSIDE RECORDS SUMMARY | 2024-03-20 14:54 | XMS_ITS | Encounter Summary ---
Author Organization [employer] [facility] Address [address] [place] [address] 7t [place] [address] Care Team Providers Care Epic Analyst Name Role Phone Sariah Vickers Primary Care Provider [phone] Encounter Details Date Type Department Care Team (Latest Contact Info) Description 04/14/2020 Abstract [facility] CONVERSIONS Dental, Provider, DDS Social History Tobacco [...] 04/09/2024 10:00 AM EST Office Visit [facility] ADULT DENTAL [address] [place] [address] Nuvia Duarte [address] [place] [address] 04/12/2024 1:30 PM EST Office Visit [facility] MEDICINE [address] [place] [address] Sariah Vickers ANP [address] [place] [address] 04/23/2024 11:30 AM EST Clinical Support [facility] MEDICINE [address] [place] [address] Azeb Hall RN [address] [place] [address] documented as of this encounter Visit Diagnoses Not on filedocumented in this encounter Care Teams Epic Analyst Relationship Specialty Start Date End Date Sariah Vickers ANP [address] [place] [address] PCP - General Family Medicine 09/23/19 documented as of this encounter
--- OUTSIDE RECORDS SUMMARY | 2024-03-20 14:54 | XMS_ITS | Encounter Summary ---
Author Organization [employer] [facility] Address [address] [facility] 7t [place] [address] Care Team Providers Care Forest Botany Instructor Name Role Phone Sariah Vickers Primary Care Provider [phone] Reason for Referral * Consultation (Routine) - Authorized Specialty Diagnoses / Procedures Referred By Queenie gomez Referred To Contact Pharmacy Diagnoses Essential hypertension Waldo Rojas MD [address] [place] [address] Phone: tel: fax: Referral ID Status Reason Start Date Expiration Date Visits Requested Visits Authorized [id number] Authorized Consult and Treat 03/18/2024 03/18/2025 6 6 Encounter Details Date Type Department Care Team (Late st Contact Info) Description 03/18/2024 Orders Only [facility] MEDICINE [address] [place] [address] [phone] Waldo Rojas MD [address] [place], [place] [phone] Essential hypertension (Primary Dx) Social History Tobacco Use Types Packs/Day Years Used Date Smoking Tobacco: Former Cigarettes 0.3 7 2 010 - 2017 Passive Smoke Exposure: Past Smokeless Tobacco: Never [...] 10:00 AM EST Office Visit [facility] ADULT DENTAL [address] [place] [address] Nuvia Duarte [address] [place] [address] 04/12/2024 1:30 PM EST Office Visit [facility] MEDICINE [address] [place] [address] Sariah Vickers ANP [address] [place] [address] 04/23/2024 11:30 AM EST Clinical Support [facility] MEDICINE [address] [place] [address] Azeb Hall RN [address] [place] [address] Scheduled Referrals Name Type Priority Associated Diagnoses Orde r Schedule Referral to Pharmacy CDTM Outpatient Referral Routine Essential hypertension Ordered: 03/18/2024 documented as of this encounter Goals Goal [...] as of this encounter Visit Diagnoses Diagnosis Essential hypertension- Primary Unspecified essential hypertension documented in this encounter Additional Health Concerns Assessment Noted Time PHQ-9 Depression Total Score: 12 024 2:58 PM EDT documented as of this encounter Care Teams Forest Botany Instructor Relationship Specialty Start Date End Date Sariah Vickers ANP [address] [place] [address] PCP - General Family Medicine 09/23/19 documented as of this encounter
--- OUTSIDE RECORDS SUMMARY | 2024-03-20 14:54 | XMS_ITS | Encounter Summary ---
Author Organization [employer] Address [address] [facility] 7t [place] [address] Care Team Providers Care First Aid Nurse Name Role Phone Sariah Vickers Primary Care Provider [phone] Encounter Details Date Type Department Care Team (Latest Contact Info) Description 03/03/2024 Travel Social History Tobacco Use Types Packs/Day [...] Description 04/09/2024 10:00 AM EST Office Visit [facility] ADULT DENTAL [address] [place] [address] Felicia, Nuvia [address] [place] [address] 04/12/2024 1:30 PM EST Office Visit [facility] MEDICINE [address] [place] [address] Sariah Vickers ANP [address] [place] [address] 04/23/2024 11:30 AM EST Clinical Support [address] [address] Azeb Hall, MARTIN [address] [place], [place] [phone] documented as of this encounter Goals Goal [...] documented as of this encounter Care Teams First Aid Nurse Relationship Specialty Start Date End Date Sariah Vickers ANP [address] [place] [address] PCP - General Family Medicine 09/23/19 documented as of this encounter
--- OUTSIDE RECORDS SUMMARY | 2024-03-20 14:54 | XMS_ITS | Encounter Summary ---
Author Organization [employer] [facility] Address [address] [facility] 7t [place] [address] Care Team Providers Care Stitchdown Toe Former Name Role Phone Sariah Vickers Primary Care Provider [phone] Encounter Details Date Type Department Care Team (Late Contact Info) Description 02/05/2022 Abstract [facility] MEDICINE [address] [place] [address] Sariah Vickers ANP [address] [place] [address] Social History Tobacco Use Types Packs/Day Years Used Date Smoking Tobacco: Former Cigarettes 2016 Smokeless Tobacco: Never Alcohol Use Standard [...] Description 04/09/2024 10:00 AM EST Office Visit [facility] ADULT DENTAL [address] [place] [address] Nuvia Duarte [address] [place] [address] 04/12/2024 1:30 PM EST Office Visit [address] [address] Sariah Vickers ANP [address] [place] [address] 04/23/2024 11:30 AM EST Clinical Support [address] [phone] Azeb Hall, MARTIN [address] [place] [address] documented as of this encounter Visit Diagnoses Not on filedocumented in this encounter Care Teams Stitchdown Toe Former Relationship Specialty Start Date End Date Sariah Vickers ANP [address] [place] [address] PCP - General Family Medicine 09/23/19 documented as of this encounter
--- OUTSIDE RECORDS SUMMARY | 2024-03-20 14:54 | XMS_ITS | Encounter Summary ---
Author Organization [employer] [facility] Address [address] [facility] 7t [place] [address] Care Team Providers Care Agricultural Agent Name Role Phone Sariah Vickers Primary Care Provider [phone] Reason for Referral * Consultation (Urgent) - Authorized Specialty Diagnoses / Procedures Referred By Queenie gomez Referred To Contact Dermatology Diagnoses Abscess Sariah Vickers ANP [address] [place] [address] Phone: tel: fax: Referral ID Status Reason Start Date Expiration Date Visits Requested Visits Authorized [id number] Authorized Specialty Services Required 03/17/2024 03/17/2025 1 1 Reason for Visit * Reason Comments sick on site Encounter Details Date Type Department Care Team (Latest Contact Info) Description 03/17/2024 1:30 PM EST Office Visit [facility] MEDICINE [address] [place] [address] Sariah Vickers ANP [address] [place] [address] Type 2 diabetes mellitus with hyperlipidemia (CMS/HCC) (Primary Dx); Abscess Social History Tobacco Use Types Packs/Day Years [...] Sign Reading Time Taken Comments Blood Pressure 130/91 03/17/2024 1:28 PM EST Pulse 101 03/17/2024 1:28 PM EST Temperature 36.5 ??C (97.7 ??F) 03/17/2024 1:28 PM ES T Respiratory Rate 16 03/17/2024 1:28 PM EST Oxygen Saturation 95% 03/17/2024 1:28 PM EST Inhaled Oxygen Concentration - - Weight 92 kg (202 lb 12.8 oz) 03/17/2024 1:28 PM EST Height - - Body Mass Index 34.81 02/23/2024 2:05 PM EST documented in this encounter Plan of Treatment Upcoming Encounters Date Type Department Care Team (Late st Contact Info) Description 04/09/2024 10:00 AM EST Office Visit [facility] ADULT DENTAL [address] [place] [address] Nuvia Duarte [address] [place] [address] 04/12/2024 1:30 PM EST Office Visit [address] [address] Sariah Vickers ANP [address] [place] [address] 04/23/2024 11:30 AM EST Clinical Support [address] [address] Azeb Hall, MARTIN [address] [place] [address] Scheduled Referrals Name Type Priority Associated Diagnoses Order Schedule Referral to Dermatology Outpatient Referral Urgent Abscess Expected: 03/17/2024 (Approximate), Expires: 03/17/2025 documented as of this encounter Goals Goal [...] as of this encounter Visit Diagnoses Diagnosis Type 2 diabetes mellitus with hyperlipidemia (CMS/HCC)- Primary Abscess Cellulitis and abscess of unspecified site documented in this encounter Additional Health Concerns Assessment Noted Time PHQ-9 Depression Total Score: 12 024 2:58 PM EDT documented as of this encounter Care Teams Agricultural Agent Relationship Specialty Start Date End Date Sariah Vickers ANP [address] [place] [address] PCP - General Family Medicine 09/23/19 documented as of this encounter
--- OUTSIDE RECORDS SUMMARY | 2024-03-20 14:54 | XMS_ITS | Encounter Summary ---
Author Organization [employer] [facility] Address [address] [place] [address] 7t [place] [address] Care Team Providers Care Short Haul Driver Name Role Phone Sariah Vickers Primary Care Provider [phone] Encounter Details Date Type Department Care Team (Latest Contact Info) Description 06/20/2021 Abstract [facility] CONVERSIONS Dental, Provider, DDS Social History [...] Description 04/09/2024 10:00 AM EST Office Visit [facility] ADULT DENTAL [address] [place] [address] Nuvia Duarte [address] [place] [address] 04/12/2024 1:30 PM EST Office Visit [facility] MEDICINE [address] [place] [address] Sariah Vickers ANP [address] [place] [address] 04/23/2024 11:30 AM EST Clinical Support [facility] MEDICINE [address] [place] [address] Azeb Hall RN [address] [place] [address] documented as of this encounter Visit Diagnoses Not on filedocumented in this encounter Care Teams Short Haul Driver Relationship Specialty Start Date End Date Sariah Vickers ANP [address] [place] [address] PCP - General Family Medicine 09/23/19 documented as of this encounter
--- OUTSIDE RECORDS SUMMARY | 2024-03-20 14:54 | XMS_ITS | Encounter Summary ---
Author Organization [employer] Address [address] [facility] 7t [place] [address] Care Team Providers Care Filling Machine Set Up Mechanic Name Role Phone Sariah Vickers Primary Care Provider [phone] Reason for Visit * Reason Onset Date Comments status check abscess 03/12/2024 Encounter Details Date Type Department Care Team ([facility] st Contact Info) Description 03/12/2024 Telephone [facility] MEDICINE 230 [place] [address] Sariah Vickers ANP 230 [place] [address] status check abscess Social History Tobacco Use Types Packs/Day Years [...] encounter Miscellaneous Notes * Telephone Encounter - Kang Levin RN - 03/12/2024 2:58 PM EST TC placed to patient (via [facility] desktop engineer) who was informed of providers message below. Patient states she would need specific instructions from PCP on what type of clorox to buy and how to dilute itetc. Patient advised that PCP will discussed once the area is healed at f/u appt on 04/12/24 at 1:30pm. Patient advised she can discuss specific instructions with him then. Patient verbalized understanding and agrees with plan. * Telephone Encounter - KAYLEE Lopez - 03/12/2024 10:38 AM EST Thank you! Please let her know - I do not want her showering with clorox! That is for getting rid of a possible offending organism that lives on our skin (MRSA) and is something we can discuss when she's healed. It would be a VERY diluted solution in a bath - but again, she does NOT need to do thatat present! thanks * Telephone Encounter - Kang Levin RN - 03/12/2024 10:22 AM EST TC placed to patient to ask her below if she attended visit on 03/09/24. Patient reports she did notmake it to the appt because it was really cold outside and she was not able to arrange transportation in time. Patient states she rescheduled her appt for 03/16/24 at 1:30 pm and has transportation arranged to get there. RN asked if the abscess is improving or getting any worse than when seen for the visit. Patient reports it is getting better because she uses warm compress and takes warm showers but she states she was a little bothered because provider advised her to shower with Clorox but the provider is aware that she has asthma so she's not sure why she was advised to do that and then she was just referred to General surgery. RN informed patient that provider was concerned that the area may have needed to be drained and that is not something all of the providers at the clinic do so that is why she was referred to General surgery. Patient verbalized understanding and reports she is going to be coming to discuss this request in person when she feels better. Patient advised to continue to take care of the area and keep appt for GS and if she develops fever or worsening symptoms she can call the clinic. Patient agrees with plan. Message sent to PCP as FYI. * Telephone Encounter - Kang Levin RN - 03/12/2024 10:20 AM EST ----- Message from Sariah Vickers sent at 03/12/2024 9:58 AM EST ----- Please outreach pt for status check re: abscess on buttock. Was referred to gen surg and per note below was scheduled, but I do not see any notes in [facility] for 03/09. Can you please confirm with pt that she went to appt and if she was not aware of it, please give info so she can confirm appt/reschedule if needed. thanks ----- Message ----- From: Candace Gonzalez RN Sent: 03/09/2024 1:25 PM EST To: KAYLEE Lopez Patient has appointment with general surgery this afternoon at 3:30pm. ----- Message ----- From: KAYLEE Lopez Sent: 03/03/2024 4:40 PM EST To: [facility] Green Team Nurses Please call general surgery on Friday to make sure that they received a referral for this patient for possible I&D thank you documented in this encounter Plan of Treatment Upcoming Encounters Date Type Department Care Team (Late st Contact Info) Description 04/09/2024 10:00 AM EST Office Visit [facility] ADULT DENTAL [address] [place] [address] Brendan Duartearis 230 [place] [address] 04/12/2024 1:30 PM EST Office Visit [address] [address] Sariah Vickers ANP [address] [place] [address] 04/23/2024 11:30 AM EST Clinical Support [address] [address] Azeb Hall, MARTIN 505 [place] [address] documented as of this encounter Goals Goal [...] documented as of this encounter Care Teams Filling Machine Set Up Mechanic Relationship Specialty Start Date End Date Sariah Vickers ANP [address] [place] [address] PCP - General Family Medicine 09/23/19 documented as of this encounter
--- OUTSIDE RECORDS SUMMARY | 2024-03-20 14:54 | XMS_ITS | Encounter Summary ---
Author Organization [employer] [facility] Address [address] [place] [address] 7t [place] [address] Care Team Providers Care Assistant Store Director Name Role Phone Sariah Vickers Primary Care Provider [phone] Reason for Visit * Reason Comments Med Refill Encounter Details Date Type Department Care Team (Late st Contact Info) Description 03/03/2022 Refill [facility] MEDICINE 230 [place] [address] Sariah Vickers ANP 230 [place] [address] Social History Tobacco Use Types Packs/Day Years [...] suspected to have Coronavirus/COVID-19? No / Unsure 02/19/2022 3:43 PM EST documented as of this encounter Miscellaneous Notes * Telephone Encounter - KAYLEE Lopez - 03/06/2022 10:19 AM EST Will speak w/ pt about meds, may be duplicating (vit D and Ca in multivitamin) documented in this encounter Plan of Treatment Upcoming Encounters Date Type Department Care Team (Late st Contact Info) Description 04/09/2024 10:00 AM EST Office Visit [facility] ADULT DENTAL [address] [place] [address] Nuvia Duarte 230 [place] [address] 04/12/2024 1:30 PM EST Office Visit [facility] MEDICINE [address] [place] [address] Sariah Vickers ANP [address] [place] [address] 04/23/2024 11:30 AM EST Clinical Support [address] [address] Azeb Hall RN 505 [place] [address] documented as of this encounter Visit Diagnoses Not on filedocumented in this encounter Care Teams Assistant Store Director Relationship Specialty Start Date End Date Sariah Vickers ANP [address] [place] [address] PCP - General Family Medicine 09/23/19 documented as of this encounter
--- OUTSIDE RECORDS SUMMARY | 2024-03-20 14:54 | XMS_ITS | Encounter Summary ---
Author Organization [employer] Address [address] [facility] 7t [place] [address] Care Team Providers Care Director Of Promotions Name Role Phone Sariah Vickers Primary Care Provider [phone] Reason for Visit * Reason Comments Med Refill Encounter Details Date Type Department Care Team ([facility] st Contact Info) Description 03/09/2024 Refill [facility] CH[facility] MED & PEDS [address] [place] [address] Sariah Vickers ANP 230 [place] [address] Neck pain Social History Tobacco Use Types [...] Description 04/09/2024 10:00 AM EST Office Visit [facility] ADULT DENTAL [address] [place] [address] Nuvia Duarte 230 [place] [address] 04/12/2024 1:30 PM EST Office Visit [facility] MEDICINE [address] [place] [address] Sariah Vickers ANP 230 [place] [address] 04/23/2024 11:30 AM EST Clinical Support [address] [address] Azeb Hall, RN 505 [place] [address] documented as of this encounter Goals Goal [...] documented as of this encounter Care Teams Director Of Promotions Relationship Specialty Start Date End Date Sariah Vickers ANP 230 [place] [address] PCP - General Family Medicine 09/23/19 documented as of this encounter
--- OUTSIDE RECORDS SUMMARY | 2024-03-20 14:54 | XMS_ITS | Encounter Summary ---
Author Organization [employer] Address [address] [place] [address] 7t [place] [address] Care Team Providers Care Orthopedically Impaired Teacher Name Role Phone Sariah Vickers Primary Care Provider [phone] Reason for Visit * Reason Onset Date Comments Durable Medical Equipment 03/15/2022 Encounter Details Date Type Department Care Team (Late st Contact Info) Description 03/15/[address] [facility] MEDICINE 230 [place] [address] Sariah Vickers ANP 230 [place] [address] Durable Medical Equipment Social History Tobacco Use Types Packs/Day Years [...] suspected to have Coronavirus/COVID-19? No / Unsure 03/13/2022 3:40 PM EST documented as of this encounter Miscellaneous Notes * Telephone Encounter - Osiris Lam - 03/15/2022 11:59 AM EST Tc from pt requesting a elevated raised toilet seat. States the one that was requested was to smalland [facility] does not want to exchanged . Pt states [facility] informed she had to get a new script sent . Please call pt to clarify . documented in this encounter Plan of Treatment Upcoming Encounters Date Type Department Care Team (Late st Contact Info) Description 04/09/2024 10:00 AM EST Office [address] [facility] ADULT DENTAL [address] [place] [address] Felicia, Nuvia 230 [place] [address] 04/12/2024 1:30 PM EST Office [address] [facility] MEDICINE [address] [place] [address] Sariah Vickers ANP [address] [place] [address] 04/23/2024 11:30 AM EST Clinical [address] [facility] MEDICINE [address] [place] [address] Azeb Hall, RN 505 [place], [place] [phone] documented as of this encounter Visit Diagnoses Not on filedocumented in this encounter Care Teams Orthopedically Impaired Teacher Relationship Specialty Start Date End Date Sariah Vickers ANP [address] [place] [address] PCP - General Family Medicine 09/23/19 documented as of this encounter
--- OUTSIDE RECORDS SUMMARY | 2024-03-20 14:54 | XMS_ITS | Encounter Summary ---
Author Organization [employer] Address [address] [facility] 7t [place] [address] Care Team Providers Care C 40A Crew Chief Name Role Phone Sariah Vickers Primary Care Provider [phone] Reason for Visit * Reason Onset Date Comments Med Refill 02/20/2024 Encounter Details Date Type Department Care Team (Late st Contact Info) Description 02/20/2024 Refill [facility] MEDICINE [address] [place] [address] Sariah Vickers ANP 230 [place] [address] Severe persistent asthma without complication Social History [...] encounter Miscellaneous Notes * Telephone Encounter - Samantha Pop LPN - 02/20/2024 10:53 AM EST Next appointment 04/12/24. * Telephone Encounter - Abad Ledesma - 02/20/2024 10:44 AM EST TC from pt requesting medication refill. Medications needing refill : ipratropium-albuterol (Duo-Neb) 0.5-2.5 mg/3 mL nebulizer solution To be sent to: [facility] documented in this encounter Plan of Treatment Upcoming Encounters Date Type Department Care Team (Late st Contact Info) Description 04/09/2024 10:00 AM EST Office Visit [facility] ADULT DENTAL [address] [place] [address] Nuvia Duarte [address] [place] [address] 04/12/2024 1:30 PM EST Office Visit [facility] MEDICINE [address] [place] [address] Sariah Vickers ANP 230 [place] [address] 04/23/2024 11:30 AM EST Clinical Support [facility] MEDICINE [address] [place] [address] Azeb Hall, MARTIN 505 [place] [address] documented as of this encounter Goals Goal Patient Goal Type Associated Problems Recent Progress Patient-Stated? Author Blood Pressure < 140/90 Blood Pressure 130/91(2024 1:28 PM EST) No Phanis-Gambl Aida urbina, PharmD Record Your Blood Sugar As Directed General No Phanis-Gambl Veronica urbinasa, PharmD Hemoglobin A1c < 7 Result Component 6.6( 8:44 AM EST) No Phanis-Aida Medina PharmD documented as of this encounter Visit Diagnoses Diagnosis Severe persistent asthma without complication documented in this encounter Additional Health Concerns Assessment Noted Time PHQ-9 Depression Total Score: 12 08/ 024 2:58 PM EDT documented as of this encounter Care Teams C 40A Crew Chief Relationship Specialty Start Date End Date Sariah Vickers ANP 230 [facility] [place] [address] PCP - General Family Medicine 09/23/19 documented as of this encounter
--- OUTSIDE RECORDS SUMMARY | 2024-03-20 14:54 | XMS_ITS | Encounter Summary ---
Author Organization [email or web address] [facility] Address [address] [place] [address] 7t [place] [address] Care Team Providers Care Cyber Workforce Developer And Manager Name Role Phone Sariah Vickers Primary Care Provider [phone] Reason for Visit * Reason Comments Med Refill Encounter Details Date Type Department Care Team (Late Contact Info) Description 03/26/2022 Refill [facility] MEDICINE 230 [place] [address] Sariah Vickers ANP 230 [place] [address] Social History Tobacco Use Types Packs/Day Years [...] suspected to have Coronavirus/COVID-19? No / Unsure 03/20/2022 9:15 AM EST documented as of this encounter Plan of Treatment Upcoming Encounters Date Type Department Care Team (Late Contact Info) Description 04/09/2024 10:00 AM EST Office Visit [facility] ADULT DENTAL 230 [place] [address] FeliciaNuvia 230 [place] [address] 04/12/2024 1:30 PM EST Office Visit [address] [address] Sariah Vickers ANP [address] [place] [address] 04/23/2024 11:30 AM EST Clinical Support [address] [address] Azeb Hall, MARTIN 505 [place], [place] [phone] documented as of this encounter Visit Diagnoses Not on filedocumented in this encounter Care Teams Cyber Workforce Developer And Manager Relationship Specialty Start Date End Date Sariah Vickers ANP [address] [place] [address] PCP - General Family Medicine 09/23/19 documented as of this encounter
--- OUTSIDE RECORDS SUMMARY | 2024-03-20 14:55 | XMS_ITS | Encounter Summary ---
Author Organization [employer] Address [address] [facility] 7t [place] [address] Care Team Providers Care Student Records Specialist Name Role Phone Sariah Vickers Primary Care Provider [phone] Reason for Visit * Reason Onset Date Comments chart prep 03/02/2024 Encounter Details Date Type Department Care Team (Late st Contact Info) Description 03/02/2024 Telephone [facility] MEDICINE 230 [place] [address] Day Pool [place] chart prep Social History Tobacco Use Types Packs/Day Years [...] encounter Miscellaneous Notes * Telephone Encounter - Day Pool [place] - 03/02/2024 3:25 PM EST Chart Prep Labs: done Images: done Vaccines due: yes Referrals: closed Screenings: mammogram , Foot Exam Overdue care gaps: Sbirt documented in this encounter Plan of Treatment Upcoming Encounters Date Type Department Care Team (Late st Contact Info) Description 04/09/2024 10:00 AM EST Office Visit [facility] ADULT DENTAL [address] [place] [address] Brendan Duartearis 230 [place] [address] 04/12/2024 1:30 PM EST Office Visit [facility] MEDICINE [address] [place] [address] Sariah Vickers ANP 230 [place] [address] 04/23/2024 11:30 AM EST Clinical Support [facility] MEDICINE [address] [place] [address] Azeb Hall, MARTIN 505 [place] [address] documented as of this encounter Goals Goal [...] documented as of this encounter Care Teams Student Records Specialist Relationship Specialty Start Date End Date Sariah Vickers ANP [address] [place] [address] PCP - General Family Medicine 09/23/19 documented as of this encounter
--- OUTSIDE RECORDS SUMMARY | 2024-03-20 14:55 | XMS_ITS | Encounter Summary ---
Author Organization [employer] Address [address] [facility] 7t [place] [address] Care Team Providers Care Roller Leveler Name Role Phone Sariah Vickers Primary Care Provider [phone] Reason for Visit * Reason Comments Med Refill Encounter Details Date Type Department Care Team ([facility] st Contact Info) Description 03/07/2023 Refill [facility] MEDICINE 230 [place] [address] Sariah Vickers ANP 230 [place] [address] Vertigo Social History Tobacco Use Types Packs/Day Years Used Date Smoking Tobacco: Former Cigarettes 0.3 7 2 - 2016 Passive Smoke Exposure: Past Smokeless Tobacco: Never Alcohol Use Standard Drinks/Week Comments Not Currently 0 (1 standard drink = 0.6 oz pur e alcohol) PHQ-2 Answer Date Recorded Patient Health Questionnaire-2 Score 0 02/05/2022 Housing Stability Answer Date Recorded What is your housing situation today? I have rodrigo kent 12/04/[address] you li ve. Do you have problems with any of the following? None of the above 12/04/2022 Food Insecurity Answer Date Recorded Within the past 12 months, y ou worried that your food would run out before you got money to buy more: Never True 12/04/2022 Within the past 12 months,th e food you bought just didn't last and you didn't have enough money to get more: Never True Transportation Answer Date Recorded In the past 12 months, has l ack of transportation kept you from medical appts, meetings, work or from getting things needed for daily living? No 12/04/2022 Utilities Answer Date Recorded In the past 12 months, has t he electric, gas, oil or water company threatened to shut off services in your home? No 12/04/2022 Depression Answer Date Recorded Patient Health Questionnaire-2 [...] Visit [facility] ADULT DENTAL [address] [place] [address] Nuvia Duarte [address] [place] [address] 04/12/2024 1:30 PM EST Office Visit [facility] MEDICINE [address] [place] [address] Sariah Vickers ANP [address] [place] [address] 04/23/2024 11:30 AM EST Clinical Support [address] [address] Azeb Hall, MARTIN [address] [place] [address] documented as of this encounter Goals Goal [...] as of this encounter Visit Diagnoses Diagnosis Vertigo Dizziness and giddiness documented in this encounter Care Teams Roller Leveler Relationship Specialty Start Date End Date Sariah Vickers ANP [address] [place] [address] PCP - General Family Medicine 09/23/19 documented as of this encounter
--- OUTSIDE RECORDS SUMMARY | 2024-03-20 14:55 | XMS_ITS | Encounter Summary ---
Author Organization [employer] Address 75 [facility] 7t [place] [address] Care Team Providers Care Gas Plumber Name Role Phone Sariah Vickers Primary Care Provider [phone] Reason for Visit * Reason Comments Med Refill Encounter Details Date Type Department Care Team ([facility] st Contact Info) Description 12/17/2023 Refill [facility] MEDICINE 230 [place] [address] Sariah Vickers ANP 230 [place] [address] Chronic SI joint pain Social History Tobacco Use Types Packs/Day [...] Description 04/09/2024 10:00 AM EST Office Visit [facility] ADULT DENTAL [address] [place] [address] Nuvia Duarte 230 [place] [address] 04/12/2024 1:30 PM EST Office Visit [facility] MEDICINE [address] [place] [address] Sariah Vickers ANP 230 [place] [address] 04/23/2024 11:30 AM EST Clinical Support [address] [address] Azeb Hall, MARTIN 505 [place] [address] documented as of this encounter Goals Goal Patient Goal Type Associated Problems Recent Progress Patient-Stated? Author Blood Pressure < 140/90 Blood Pressure 130/91(2024 1:28 PM EST) No Phanis-Gambl e, Aida, PharmD Record Your Blood Sugar As Directed General No Piers-Gambl e, Aida, PharmD Hemoglobin A1c < 7 Result Component 6.6( 8:44 AM EST) No Piers-Gambl e Aida, PharmD documented as of this encounter Visit Diagnoses Diagnosis Chronic SI joint pain Disorders of sacrum documented in this encounter Additional Health Concerns Assessment Noted Time PHQ-9 Depression Total Score: 12 024 2:58 PM EDT documented as of this encounter Care Teams Gas Plumber Relationship Specialty Start Date End Date Sariah Vickers ANP 230 [place] [address] PCP - General Family Medicine 09/23/19 documented as of this encounter
--- OUTSIDE RECORDS SUMMARY | 2024-03-20 14:55 | XMS_ITS | Encounter Summary ---
Author Organization [employer] Address 75 [facility] 7t [place] [address] Care Team Providers Care Leaf Sucker Operator Name Role Phone Sariah Vickers Primary Care Provider [phone] Reason for Visit * Reason Comments Med Refill Encounter Details Date Type Department Care Team ([facility] st Contact Info) Description 01/06/2024 Refill [facility] CHC MED & PEDS [address] [place] [address] Sariah Vickers ANP 230 [place] [address] Cervicalgia Social History Tobacco Use Types Packs/Day [...] Description 04/09/2024 10:00 AM EST Office Visit [facility] ADULT DENTAL [address] [place] [address] Nuvia Duarte 230 [place] [address] 04/12/2024 1:30 PM EST Office Visit [facility] MEDICINE [address] [place] [address] Sariah Vickers ANP 230 [place] [address] 04/23/2024 11:30 AM EST Clinical Support [address] [address] Azeb Hall, RN 505 [place] [address] documented as of this encounter Goals Goal [...] documented as of this encounter Care Teams Leaf Sucker Operator Relationship Specialty Start Date End Date Sariah Vickers ANP 230 [place] [address] PCP - General Family Medicine 09/23/19 documented as of this encounter
--- OUTSIDE RECORDS SUMMARY | 2024-03-20 14:55 | XMS_ITS | Encounter Summary ---
Author Organization [employer] Address [address] [facility] 7t [place] [address] Care Team Providers Care Auto Parts Delivery Driver Name Role Phone Sariah Vickers Primary Care Provider [phone] Reason for Visit * Reason Comments Med Refill Encounter Details Date Type Department Care Team ([facility] st Contact Info) Description 11/26/2023 Refill [facility] MEDICINE 230 [place] [address] Sariah Vickers ANP 230 [place] [address] Vertigo Social History Tobacco Use Types Packs/Day [...] 04/09/2024 10:00 AM EST Office Visit [facility] ADULT DENTAL [address] [place] [address] Nuvia Duarte [address] [place] [address] 04/12/2024 1:30 PM EST Office Visit [facility] MEDICINE [address] [place] [address] Sariah Vickers ANP 230 [place] [address] 04/23/2024 11:30 AM EST Clinical Support [address] [address] Azeb Hall, MARTIN [address] [place] [address] documented as of this encounter Goals Goal [...] Dizziness and giddiness documented in this encounter Additional Health Concerns Assessment Noted Time PHQ-9 Depression Total Score: 12 024 2:58 PM EDT documented as of this encounter Care Teams Auto Parts Delivery Driver Relationship Specialty Start Date End Date Sariah Vickers ANP 230 [place] [address] PCP - General Family Medicine 09/23/19 documented as of this encounter
--- OUTSIDE RECORDS SUMMARY | 2024-03-20 14:55 | XMS_ITS | Encounter Summary ---
Author Organization [facility] [employer] [facility] Address [address] [place] [address] 7t [place] [address] Care Team Providers Care Poultry Killer Name Role Phone Sariah Vickers Primary Care Provider Reason for Visit * Reason Onset Date Comments Referral 05/17/2022 Encounter Details Date Type Department Care Team ([facility] st Contact Info) Description 05/17/2022 Telephone [facility] MEDICINE [address] [place] [address] Sariah Vickers ANP 230 [place] [address] Referral Social History Tobacco Use Types Packs/Day Years [...] suspected to have Coronavirus/COVID-19? No / Unsure 05/15/2022 10:48 AM EDT documented as of this encounter Miscellaneous Notes * Telephone Encounter - Rolando Rodriguez - 05/17/2022 9:50 AM EDT Tc from pt requesting a referral to be seen by a physical therapy guide to vertigo. Please contact pt at [phone] documented in this encounter Plan of Treatment Upcoming Encounters Date Type Department Care Team (Late st Contact Info) Description 04/09/2024 10:00 AM EST Office Visit [facility] ADULT DENTAL [address] [place] [address] Felicia, Nuvia [address] [place] [address] 04/12/2024 1:30 PM EST Office Visit [facility] MEDICINE [address] [place] [address] Sariah Vickers ANP [address] [place] [address] 04/23/2024 11:30 AM EST Clinical Support [address] [address] Azeb Hall, RN 505 [place] [address] documented as of this encounter Visit Diagnoses Not on filedocumented in this encounter Care Teams Poultry Killer Relationship Specialty Start Date End Date Sariah Vickers ANP [address] [place] [address] PCP - General Family Medicine 09/23/19 documented as of this encounter
--- OUTSIDE RECORDS SUMMARY | 2024-03-20 14:55 | XMS_ITS | Encounter Summary ---
Author Organization [employer] Address [address] [facility] 7t [place] [address] Care Team Providers Care Sports Medicine Coordinator Name Role Phone Sariah Vickers Primary Care Provider [phone] Reason for Visit * Reason Comments Med Refill Encounter Details Date Type Department Care Team ([facility] st Contact Info) Description 10/17/2023 Refill [facility] MEDICINE 230 [place] [address] Sariah Vickers ANP 230 [place] [address] Neck pain Social History Tobacco Use Types [...] AM EST Office Visit [facility] ADULT DENTAL [address] [place] [address] Nuvia Duarte 230 [place] [address] 04/12/2024 1:30 PM EST Office Visit [facility] MEDICINE [address] [place] [address] Sariah Vickers ANP 230 [place] [address] 04/23/2024 11:30 AM EST Clinical Support [facility] MEDICINE [address] [place] [address] Azeb Hall, MARTIN 505 [place] [address] documented as of this encounter Goals Goal [...] documented as of this encounter Care Teams Sports Medicine Coordinator Relationship Specialty Start Date End Date Sariah Vickers ANP 230 [place] [address] PCP - General Family Medicine 09/23/19 documented as of this encounter
--- OUTSIDE RECORDS SUMMARY | 2024-03-20 14:55 | XMS_ITS | Encounter Summary ---
Author Organization [employer] Address 75 [facility] 7t [place] [address] Care Team Providers Care Biodiesel Plant Manager Name Role Phone Sariah Vickers Primary Care Provider [phone] Reason for Visit * Reason Comments Med Refill Encounter Details Date Type Department Care Team ([facility] st Contact Info) Description 05/09/[address] [facility] MEDICINE [address] [place] [address] Sariah Vickers ANP 230 [place] [address] High cholesterol Social History Tobacco Use Types Packs/Day Years [...] 10:00 AM EST Office Visit [facility] ADULT DENTAL [address] [place] [address] Nuvia Duarte [address] [place] [address] 04/12/2024 1:30 PM EST Office Visit [facility] MEDICINE [address] [place] [address] Sariah Vickers ANP [address] [place] [address] 04/23/2024 11:30 AM EST Clinical Support [address] [address] Azeb Hall, MARTIN [address] [place] [address] documented as of this encounter Goals Goal [...] as of this encounter Visit Diagnoses Diagnosis High cholesterol Pure hypercholesterolemia documented in this encounter Care Teams Biodiesel Plant Manager Relationship Specialty Start Date End Date Sariah Vickers ANP [address] [place] [address] PCP - General Family Medicine 09/23/19 documented as of this encounter
--- OUTSIDE RECORDS SUMMARY | 2024-03-20 14:55 | XMS_ITS | Encounter Summary ---
Author Organization [employer] [facility] Address 75 [facility] 7t [place] [address] Care Team Providers Care Shoe Coverer Name Role Phone Sariah Vickers Primary Care Provider [phone] Reason for Visit * Reason Onset Date Comments Nurse Triage 12/24/2022 Encounter Details Date Type Department Care Team ([facility] st Contact Info) Description 12/24/2022 Telephone [facility] MEDICINE 230 [place] [address] Sariah Vickers ANP 230 [place] [address] Nurse Triage Social History Tobacco Use Types [...] the past 12 months, has t he [employer], gas, oil or water Canines threatened to shut off services in your [...] encounter Miscellaneous Notes * Telephone Encounter - Natacha Matson RN - 12/24/2022 1:11 PM EST Called pt.via [employer] photonic laboratory technician [id number] Benjamin. Pt. States that she wants to let her PCP know thatthe Diabetic provider increased her Ozempic from 0.25mg to 1mg and now her blood sugars are all over the place 60, 69, 70 and 80. She states I don't understand how Dr. Reyes can jump from that doseto a much higher dose instead of increasing dose slowly . Pt. Blood sugars are low throughout the day. Pt. Has a decreased appetite. The medication is making pt. Nauseous and vomit. Pt. Has been having low sugars x 2 weeks in the 60's and pt. Has to eat a (candy) Glucose tablet and drink juice to increase her sugars. Pt. Does not want to talk to diabetic provider , Dr. Reyes, because she states he is not changing her medication for her. Pt. States she is worried because when she calls the Diabetic Doctor they get mad at her . Pt. States that she is upset that the diabetic Doctor increases and decreases her diabetic medication and he doesn't even know her. Pt. Wants PCP to check her glucose monitor to see if it is broken. She states that The Diabetic Doctor doesn't care about her and she feels like she may . Pt. Wants a different Diabetic Doctor and wants PCP to see her. Pt. States that this is causing her Anxiety to get worse and she wants appt. With PCP to fix this . Pt. States that after eating her Glucose tablet her blood sugars go into the 90's but then she checks her blood sugar with glucometer and it says 60's . Pt. Thinks glucometer is broken. Pt. States that she feels fine right now but she does not know if her blood glucose monitor is broken or not. I offered pt. To come to walk in but, she wants to see her PCP. I advised pt. That if blood sugars get low and she feels nauseous and or vomits that she is to call 911. Otherwise pt. Appt. Given for 12/27/22 at 115pm with PCP to go over her Diabetes medications and regimen and possible referral to a new [employer] due to pt. Not having jeremie in specialist. *I will send this note to PCP as FYI in case he wants team nurse to call pt* Protocol Used: Diabetes - Low Blood Sugar (Adult) Protocol-Based Disposition: Discuss with PCP and Callback by Nurse within 1 Hour Positive Triage Questions: * Low blood glucose (70 mg/dl [3.9 mmol/l] or below) with no other adult present AND hasn't tried Care Advice * Blood glucose 70 mg/dl (3.9 mmol/l) or below, OR symptomatic, AND cause known * All higher-acuity triage questions were negative Care Advice Discussed: * Low Blood Sugar - Treatment - Eat Some (15-20 grams) Sugar Now * Low Blood Sugar - Treatment - If Patient Is Taking Precose (Acarbose) * Measure and Record Your Blood Glucose * Telephone Encounter - Maciej Sam - 12/24/2022 12:57 PM EST Symptom: Low Blood Sugar - Caller Reports Outcome: Talk to a nurse or provider within 15 minutes Reason: Known blood sugar below 40 The caller accepted this outcome Please contact pt at [phone] documented in this encounter Plan of Treatment Upcoming Encounters Date Type Department Care Team (Late st Contact Info) Description 04/09/2024 10:00 AM EST Office Visit [facility] ADULT DENTAL 230 [place] [address] Nuvia Duarte [address] [place] [address] 04/12/2024 1:30 PM EST Office Visit [address] [address] Sariah Vickers ANP 230 [place] [address] 04/23/2024 11:30 AM EST Clinical Support [address] [address] Azeb Hall, MARTIN 505 [place] [address] documented as of this encounter Goals Goal Patient Goal Type Associated Problems Recent Progress Patient-Stated? Author Blood Pressure < 140/90 Blood Pressure 130/91(2024 1:28 PM EST) No PhanisAida Cheng, PharmD Record Your Blood Sugar As Directed General No Phanis-Aida Medina, PharmD Hemoglobin A1c < 7 Result Component 6.6( 8:44 AM EST) No Aida Ragland, PharmD documented as of this encounter Visit Diagnoses Not on filedocumented in this encounter Care Teams Shoe Coverer Relationship Specialty Start Date End Date Sariah Vickers ANP [address] [place] [address] PCP - General Family Medicine 09/23/19 documented as of this encounter
--- OUTSIDE RECORDS SUMMARY | 2024-03-20 14:55 | XMS_ITS | Encounter Summary ---
Author Organization [facility] [facility] Address [address] [place] [address] 7t [place] [address] Care Team Providers Care Customer Specialist Name Role Phone Sariah Vickers Primary Care Provider [phone] Reason for Referral * Consultation (Urgent) - Closed Specialty Diagnoses / Procedures Referred By Queenie gomez Referred To Contact General Surgery Diagnoses Panniculitis affecting sacrum Abscess Sariah Vickers ANP [address] [place] [address] Phone: tel: fax: Yaniv Frank MD [address] [place] [address] Phone: tel: fax: Referral ID Status Reason Start Date Expiration Date V isits Requested Visits Authorized [id number] Closed Specialty Services Required 03/03/2024 03/03/2025 1 1 Reason for Visit * Reason Comments Follow-up Encounter Details Date Type Department Care Team (Latest Contact Info) Description 03/03/2024 3:30 PM EST Office Visit [facility] MEDICINE [address] [place] [address] Sariah Vickers ANP 230 [place] [address] Panniculitis affecting sacrum (Primary Dx); Abscess; Spondylosis of lumbar region without myelopathy or radiculopathy Social History Tobacco Use Types Packs/Day Years [...] Sign Reading Time Taken Comments Blood Pressure 111/80 03/03/2024 3:49 PM EST Pulse 88 03/03/2024 3:49 PM EST Temperature 36.3 ??C (97.3 ??F) 03/03/2024 3:49 PM ES T Respiratory Rate 14 03/03/2024 3:49 PM EST Oxygen Saturation 94% 03/03/2024 3:49 PM EST Inhaled Oxygen Concentration - - Weight 90.2 kg (198 lb 12.8 oz) 03/03/2024 3:49 PM EST Height - - Body Mass Index 34.12 02/23/2024 2:05 PM EST documented in this encounter Progress Notes * Sariah Vickers, ANP - 03/03/2024 3:30 PM EST Images from the original note were not included. Subjective Patient ID: Nuvia Ho is a 63 y.o. female who presents for Follow-up. HPI Kinyarwanda interpretation by Alessia Stearns, medical instructor. Here today for follow-up for abscess for which she was seen at 02/23/24 at [facility]. At that time she had: On vulva Lesion (indurated, tender < 1cm lesion towards the mid of the labia, no discharge.) 5cm area of erythema and induration on left buttock extending to left Sacrococcygeal area, somewhat tender to palpation, has a purulent scab on top. Today she reports the area of concern is feeling better and she denies any fever or chills. She does still have some tenderness and would like the area checked. She has been doing warm soaks daily with good effect. She finished Bactrim as prescribed. We received a request for shower chair from her [facility] urgent care physician assistant. Discussed with Nuvia. She does need a new shower chair. She needs to use when her back pain is acting up. Lab Results Component Value Date HGBA1C 6.6 (H) 01/02/2024 Non-smoker Review of Systems Constitutional: Negative for chills and fever. HENT: Negative for sore throat. Respiratory: Negative for cough and shortness of breath. Cardiovascular: Negative for chest pain. Gastrointestinal: Negative for constipation and diarrhea. Endocrine: Negative for polydipsia, polyphagia and polyuria. Genitourinary: Negative for dysuria. Objective BP 111/80 (BP Location: Left arm, Patient Position: Sitting, BP Cuff Size: Adult long) Pulse 88 Temp 97.3 ??F (36.3 ??C) (Temporal) Resp 14 Wt 198 lb 12.8 oz (90.2 kg) SpO2 94% BMI 34.12 kg/m?? Physical Exam Vitals reviewed. Exam conducted with a cookie padder present. Constitutional: General: She is not in acute distress. Appearance: Normal appearance. She is not ill-appearing. HENT: Head: Normocephalic and atraumatic. Eyes: Extraocular Movements: Extraocular movements intact. Cardiovascular: Rate and Rhythm: Normal rate. Pulmonary: Effort: Pulmonary effort is normal. No accessory muscle usage or respiratory distress. Genitourinary: Pubic Area: No rash. Comments: Small indurated lesion in approximately the same place as documented on previous exam. Mildly erythematous and raised. Skin: Comments: 3 areas of concern on buttock. Left upper gluteal with round, tender, erythematous, induration, approximately 2 cm x 2cm. Small excoriated area near top left gluteal cleft. Small pustule mid right gluteal cleft without surrounding erythema. Neurological: Mental Status: She is alert and oriented to person, place, and time. Psychiatric: Mood and Affect: Mood normal. Behavior: Behavior normal. Alessia Stearns present for exam. Assessment/Plan Diagnoses and all orders for this visit: Panniculitis affecting sacrum Abscess With 3 areas of concern (2 on gluteal area and 1 on left labia majora). The lesion on the vulva is nonerythematous and per patient it is smaller than it was and not painful. I am more concerned aboutthe left upper gluteal lesion that is approximately 2 cm x 2 cm and indurated. No erythema extending out from this area and so did not treat for cellulitis today. Finished Bactrim 7d rx and had improvement in symptoms pain and swelling. She does continue to have an area that may need I&D. I will send to general surgery for evaluation. She may benefit from MRSA decolonization protocol however we will see if she continues to get abscesses after these heal. Also, have not cultured any (none open today to do so). She will continue to do warm soaks, follow-up with general surgery and let me know if they are not continuing to get better. Last amox-clav 01/22/2024, then levofloxacin use 02/03/2024 from pulmonology Last Doxy use 12/28/2023 Spondylosis of lumbar region M47.816 Patient would benefit from having shower chair to use when her chronic back pain flares, this woulddecrease her risk for falls and help her safely shower and bathe independently. documented in this encounter Plan of Treatment Upcoming Encounters Date Type Department Care Team (Late st Contact Info) Description 04/09/2024 10:00 AM EST Office Visit [facility] ADULT DENTAL [address] [place] [address] Nuvia Duarte [address] [place] [address] 04/12/2024 1:30 PM EST Office Visit [facility] MEDICINE [address] [place] [address] Sariah Vickers ANP 230 [place] [address] 04/23/2024 11:30 AM EST Clinical Support [address] [address] Azeb Hall RN 505 [place], [place] [phone] Scheduled Referrals Name Type Priority Associated Diagnoses Orde r Schedule Referral to General Surgery Outpatient Referral Urgent Panniculitis affecting sacrum Abscess Expected: 03/03/2024 (Approximate), Expires: 03/03/2025 documented as of this encounter Goals Goal [...] sacrum- Primary Other symptoms referable to back Abscess Cellulitis and abscess of unspecified site Spondylosis of lumbar region without myelopathy or radiculopathy documented in this encounter Additional Health Concerns Assessment Noted Time PHQ-9 Depression Total Score: 12 024 2:58 PM EDT documented as of this encounter Care Teams Customer Specialist Relationship Specialty Start Date End Date Sariah Vickers ANP [address] [place] [address] PCP - General Family Medicine 09/23/19 documented as of this encounter
--- OUTSIDE RECORDS SUMMARY | 2024-03-20 14:55 | XMS_ITS | Encounter Summary ---
Author Organization [employer] Address 75 [facility] 7t [place] [address] Care Team Providers Care Product Owner Name Role Phone Sariah Vickers Primary Care Provider [phone] Reason for Visit * Reason Comments Med Refill Encounter Details Date Type Department Care Team ([facility] st Contact Info) Description 11/24/2023 Refill [facility] MEDICINE 230 [place] [address] Sariah Vickers ANP 230 [place] [address] Vertigo Social History Tobacco Use Types Packs/Day [...] Description 04/09/2024 10:00 AM EST Office Visit [facility] ADULT DENTAL [address] [place] [address] Nuvia Duarte 230 [place] [address] 04/12/2024 1:30 PM EST Office Visit [facility] MEDICINE [address] [place] [address] Sariah Vickers ANP 230 [place] [address] 04/23/2024 11:30 AM EST Clinical Support [address] [address] Azeb Hall, MARTIN [address] [place] [address] documented as of this encounter Goals Goal [...] documented as of this encounter Care Teams Product Owner Relationship Specialty Start Date End Date Sariah Vickers ANP [address] [place] [address] PCP - General Family Medicine 09/23/19 documented as of this encounter
--- OUTSIDE RECORDS SUMMARY | 2024-03-20 14:55 | XMS_ITS | Encounter Summary ---
Author Organization [employer] Address 75 [facility] 7t [place] [address] Care Team Providers Care Radio Mechanic Apprentice Name Role Phone Sariah Vickers Primary Care Provider [phone] Reason for Visit * Reason Comments Med Refill Encounter Details Date Type Department Care Team ([facility] st Contact Info) Description 03/03/2024 Refill [facility] MEDICINE 230 [place] [address] Sariah Vickers ANP 230 [place] [address] Social History Tobacco Use Types Packs/Day Years [...] Description 04/09/2024 10:00 AM EST Office Visit [facility] ADULT DENTAL [address] [place] [address] Nuvia Duarte 230 [place] [address] 04/12/2024 1:30 PM EST Office Visit [facility] MEDICINE [address] [place] [address] Sariah Vickers ANP 230 [place] [address] 04/23/2024 11:30 AM EST Clinical Support [address] [address] Azeb Hall, MARTIN [address] [place] [address] documented as of this encounter Goals Goal [...] documented as of this encounter Care Teams Radio Mechanic Apprentice Relationship Specialty Start Date End Date Sariah Vickers ANP [address] [place] [address] PCP - General Family Medicine 09/23/19 documented as of this encounter
--- OUTSIDE RECORDS SUMMARY | 2024-03-20 14:55 | XMS_ITS | Encounter Summary ---
Author Organization [employer] Address 75 [facility] 7t [place] [address] Care Team Providers Care Flavor Extractor Name Role Phone Sariah Vickers Primary Care Provider [phone] Reason for Visit * Reason Comments Med Refill Encounter Details Date Type Department Care Team ([facility] st Contact Info) Description 01/06/2024 Refill [facility] & PEDS [address] [place] [address] Sariah Vickers ANP 230 [place] [address] Cervicalgia Social History Tobacco Use Types Packs/Day [...] 04/09/2024 10:00 AM EST Office Visit [facility] ADULT DENTAL [address] [place] [address] Nuvia Duarte [address] [place] [address] 04/12/2024 1:30 PM EST Office Visit [facility] MEDICINE [address] [place] [address] Sariah Vickers ANP [address] [place] [address] 04/23/2024 11:30 AM EST Clinical Support [address] [address] Azeb Hall, RN 505 [place] [address] documented as of this encounter Goals Goal [...] documented as of this encounter Care Teams Flavor Extractor Relationship Specialty Start Date End Date Sariah Vickers ANP 230 [facility] [address] PCP - General Family Medicine 09/23/19 documented as of this encounter
--- OUTSIDE RECORDS SUMMARY | 2024-03-20 14:55 | XMS_ITS | Encounter Summary ---
Author Organization [employer] Address [address] [facility] [address] 7t [place] [address] Care Team Providers Care Jewel Setter Name Role Phone Sariah Vickers Primary Care Provider [phone] Reason for Visit * Reason Comments Med Refill Patient walked [facility] hasn't finished her Medbox due to missing refill for medication Gabapetin . Encounter Details Date Type Department Care Team ([facility] st Contact Info) Description 10/03/2023 Refill [facility] 230 [place], [place] [phone] Sariah Vickers ANP [address] [place] [address] Chronic SI joint pain Social History Tobacco [...] encounter Miscellaneous Notes * Telephone Encounter - Aileen Wallace - 10/03/2023 9:52 AM EDT Patient walked in saying pharmacy hasn't finished her Medbox due to missing refill for medication Gabapetin . documented in this encounter Plan of Treatment Upcoming Encounters Date Type Department Care Team (Late st Contact Info) Description 04/09/2024 10:00 AM EST Office Visit [facility] ADULT DENTAL [address] [place] [address] Nuvia Duarte [address] [place] [address] 04/12/2024 1:30 PM EST Office Visit [facility] MEDICINE [address] [place] [address] Sariah Vickers ANP [address] [place] [address] 04/23/2024 11:30 AM EST Clinical Support [facility] [address] [place] [address] Azeb Hall, MARTIN [address] [place] [address] documented as of this encounter Goals Goal Patient Goal Type Associated Problems Recent Progress Patient-Stated? Author Blood Pressure < 140/90 Blood Pressure 130/91(2024 1:28 PM EST) No Aida Ragland PharmD Record Your Blood Sugar As Directed General No Aida Ragland PharmBear Hemoglobin A1c < 7 Result Component 6.6( 4 8:44 AM EST) No Aida Ragland PharmD documented as of this encounter Visit Diagnoses Diagnosis Chronic SI joint pain Disorders of sacrum documented in this encounter Additional Health Concerns Assessment Noted Time PHQ-9 Depression Total Score: 12 024 2:58 PM EDT documented as of this encounter Care Teams Jewel Setter Relationship Specialty Start Date End Date Sariah Vickers ANP [address] [place] [address] PCP - General Family Medicine 09/23/19 documented as of this encounter
--- OUTSIDE RECORDS SUMMARY | 2024-03-20 14:55 | XMS_ITS | Encounter Summary ---
Author Organization [employer] Address [address] [facility] 7t [place] [address] Care Team Providers Care Medical Scientific Officer Name Role Phone Sariah Vickers Primary Care Provider [phone] Reason for Visit * Reason Comments Med Refill Encounter Details Date Type Department Care Team ([facility] st Contact Info) Description 12/19/2022 Refill [facility] MEDICINE [address] [place] [address] Sariah Vickers ANP [address] [place] [address] Vertigo Social History Tobacco Use Types Packs/Day [...] 10:00 AM EST Office Visit [facility] ADULT DENTAL [address] [place] [phone] Nuvia Duarte [address] [place] [address] 04/12/2024 1:30 PM EST Office Visit [facility] MEDICINE [address] [place] [phone] Sariah Vickers ANP [address] [place] [phone] 04/23/2024 11:30 AM EST Clinical Support [address] [address] Azeb Hall, MARTIN [address] [place] [address] documented as of this encounter Goals Goal [...] giddiness documented in this encounter Care Teams Medical Scientific Officer Relationship Specialty Start Date End Date Sariah Vickers ANP [address] [place] [phone] PCP - General Family Medicine 09/23/19 documented as of this encounter
--- OUTSIDE RECORDS SUMMARY | 2024-03-20 14:55 | XMS_ITS | Encounter Summary ---
Author Organization [employer] Address [address] [facility] 7t [place] [address] Care Team Providers Care Repossessor Name Role Phone Sariah Vickers Primary Care Provider [phone] Reason for Visit * Reason Onset Date Comments Med Refill 09/18/2023 Encounter Details Date Type Department Care Team (Late st Contact Info) Description 09/18/2023 Telephone [facility] MEDICINE [address] [place] [address] Sariah Vickers ANP [address] [place] [address] Med Refill Social History Tobacco Use Types [...] encounter Miscellaneous Notes * Telephone Encounter - Maciej Sam - 09/18/2023 8:45 AM EDT TC from pt requesting medication refill. Medications needing refill : Tramadol To be sent to: [facility] - [place], [place] - [address] [place] [address] documented in this encounter Plan of Treatment Upcoming Encounters Date Type Department Care Team ([facility] st Contact Info) Description 04/09/2024 10:00 AM EST Office Visit [facility] ADULT DENTAL [address] [place] [address] Nuvia Duarte [address] [place] [address] 04/12/2024 1:30 PM EST Office Visit [facility] MEDICINE [address] [place] [phone] Sariah Vickers ANP [address] [place] [address] 04/23/2024 11:30 AM EST Clinical Support [address] [address] Azeb Hall RN [address] [place] [address] documented as of this encounter Goals Goal Patient Goal Type Associated Problems Recent Progress Patient-Stated? Author Blood Pressure < 140/90 Blood Pressure 130/91(2024 1:28 PM EST) No PhanisAida Cheng PharmD Record Your Blood Sugar As Directed General No Katelin-Aida Medina PharmD Hemoglobin A1c < 7 Result Component 6.6( 4 8:44 AM EST) No Aida Ragland PharmD documented as of this encounter Visit Diagnoses Not on filedocumented in this encounter Additional Health Concerns Assessment Noted Time PHQ-9 Depression Total Score: 2 06/23/19 24 2:10 PM EDT documented as of this encounter Care Teams Repossessor Relationship Specialty Start Date End Date Sariah Vickers ANP [address] [place] [phone] PCP - General Family Medicine 09/23/19 documented as of this encounter
--- OUTSIDE RECORDS SUMMARY | 2024-03-20 14:55 | XMS_ITS | Encounter Summary ---
Author Organization [facility] [employer] Address [address] [facility] 7t [place] [address] Care Team Providers Care Poultry Field Service Technician Name Role Phone Sariah Vickers Primary Care Provider [phone] Reason for Visit * Reason Comments Med Refill Encounter Details Date Type Department Care Team ([facility] st Contact Info) Description 03/04/2023 Refill [facility] [address] [place], [place] [phone] Brittney Nava MD [address] [place] [address] Social History Tobacco Use Types Packs/Day Years [...] 04/09/2024 10:00 AM EST Office Visit [facility] ADULT DENTAL [address] [place] [phone] Nuvia Duarte [address] [place] [phone] 04/12/2024 1:30 PM EST Office Visit [facility] [address] [place] [phone] Sariah Vickers ANP [address] [place] [phone] 04/23/2024 11:30 AM EST Clinical Support [address] [address] Azeb Hall, MARTIN [address] [place] [address] documented as of this encounter Goals Goal [...] filedocumented in this encounter Care Teams Poultry Field Service Technician Relationship Specialty Start Date End Date Sariah Vickers ANP [address] [place] [address] PCP - General Family Medicine 09/23/19 documented as of this encounter
--- OUTSIDE RECORDS SUMMARY | 2024-03-20 14:55 | XMS_ITS | Clinical Summary ---
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 did already sent it to randi ..info is in chart.did try to call back no answer.) 01/04/2024 Refill [facility] [address] [place] [address] Anthony Ruiz ANP Cervicalgia 01/02/2024 Orders Only GENERIC EXTERNAL DATA DEPARTMENT Provider, Generic External Data 12/30/2023 1:00 PM EST Office Visit [address] [address] Anthony Ruiz ANP Type 2 diabetes mellitus with hyperlipidemia (CMS/HCC) (Primary Dx); Essential hypertension; COPD with asthma (CMS/HCC); Chronic SI joint pain; Primary osteoarthritis of both knees 12/30/[address] [address] Anthony Ruiz ANP Durable Medical Equipment 12/30/2023 Travel 12/29/[address] [address] Day Pool [place] chart prep 12/28/2023 Orders Only GENERIC EXTERNAL DATA DEPARTMENT Provider, Generic External Data 12/23/2023 Refill [facility] [address] [place] [address] Anthony Ruiz ANP from Last 3 Months Immunizations Name Administration Dates Next Due DTaP 11/01/2010 Hep B, adult 07/14/2018,04/06/2009,06/26/2007 Influenza Injectable Quadriv alant Preservative Free IIV4 MDCK 11/22/2021 Influenza injectable quadriv alent IIV4 with preservative 11/11/2016,11/02/2014 Influenza injectable quadriv alent preservative free 10/25/2022,11/08/2020,10/26/2019,11/09,02/08/2016 Influenza, High Dose Seasona l, Preservative Free 11/11/2017 Influenza, IIV3, injectable 10/27/2023, 4 Influenza, Split (incl. phuong fied surface antigen) 10/23/2012,02/28/2012 Moderna Covid-19 Vaccine 12+ 06/12/2021, 11/17/2020,05/11/2020,04/13 Pfizer Covid-19 Vaccine 12+ 11/19/2022 Pfizer Covid-19 Vaccine 12+ Bivalent 11/29/2021 Pneumococcal Conjugate PCV 20 05/06/2022 Pneumococcal Polysaccharide PPSV23 08/18/2014 RSV Bivalent 03/26/2023 Td (adult), 5 Lf tetanus tox oid, preservative free, adsorbed 11/30/2012 Tdap 07/08/2018,11/01/2010 Zoster, Recombinant 08/24/2019,04/09/2019 Family History Medical History Relation Name Comments Diabetes Other Relation Name Status Comments Other Social History Tobacco Use Types Packs/Day Years [...] or Strong 12/17/2021 10 :16 AM EDT Last Filed Vital Signs Vital Sign Reading [...] 12.8 oz) 03/17/2024 1:28 PM EST Height 162.6 cm (5' 4 ) 02/23/2024 2:05 PM EST Body Mass Index 34.81 02/23/2024 2:05 PM EST Plan of Treatment Upcoming Encounters Date Type Department Care Team (Late st Contact Info) Description 04/09/2024 10:00 AM EST Office Visit [facility] [address] [place] [address] Nuvia Duarte [address] [place] [address] 04/12/2024 1:30 PM EST Office Visit [facility] [address] [place] [phone] Anthony Ruiz ANP [address] [place] [address] 04/23/2024 11:30 AM EST Clinical Support [facility] [address] [place] [phone] Azeb Hall, RN [address] [place] [address] Health Maintenance Due Date Last Done Comments CT Colonography 1960 FIT DNA/Cologuard 1960 FIT 1960 FOBT 1960 HIV Screening 1960 Sigmoidoscopy 1960 Alcohol/Substance Use Screening 1972 Hepatitis C Screening 1978 Hepatitis A Vaccines (1 of 2 - Risk 2-dose series) 08/06/1979 Pap Smear 1981 Diabetes: Foot Exam 06/12/2023 06/11/2022, 06/11/2022, 06/11/2022, Additional history exists COVID-19 Vaccine ( season) 2023 11/19/2022, 11/29/2021, 06/12/2021, Additional history exists Dental Oral Exam 03/15/2024 09/12/2023, 08/12/2022 Mammogram 03/20/2024 03/20/2023, 12/19, 10/13/2019, Additional history exists Depression Monitoring (PHQ-9) 04/02/2024 10/01/2023, 10/01/2023 Dental Prophylaxis 04/08/2024 10/06/2023, 0 09/18/2022, 01/18/2022 SDOH Screening 06/22/2024 06/23/2023 Diabetes: Hemoglobin A1C 07/01/2024 024, 12/30/2023, 04/30/2023, Additional history exists Dental X-Ray: Bitewings 09/12/2024 09/12/2023, 08/12 Depression Screening 09/30/2024 10/01/2023, 10/01/19 24 Diabetes: Urine Protein Screening 01/01/2025 01/02/2024, 01/22/2022, 02/12/2021, Additional history exists Lipid Panel 01/01/2025 01/02/2024, 08/18, 07/24/2021, Additional history exists Tobacco Screening 03/17/2025 03/17/2024 Cervical Cancer Screening 05/09/2025 HPV/Cotest 05/09/2025 05/09/2020, 05/09/2020 Eye Exam 05/28/2025 05/29/2023, 05/18, 05/29/2023, Additional history exists Dental X-Ray: Full Mouth 09/12/2026 09/12/2023, 09/18 Colonoscopy 12/27/2026 12/27/2021 Colorectal Cancer Screening 12/27/2026 DTaP/Tdap/Td Vaccines (5 - Td or Tdap) 07/08/2028 07/08/2018, 11/30/2012, 11/01/2010, Additional history exists Hepatitis B Vaccines Completed 07/14/2018, 04/06/2009, 06/26/2007 Zoster Vaccines Completed 08/24/2019, 04/09/2019 Pneumococcal Vaccine: 50+ Years Completed 05/06/2022, 08/18/2014 RSV Patients and Patients Aged 60 years or older Completed 03/26/2023 Influenza Vaccine Completed 10/27/2023, , 11/22/2021, Additional history exists HIB Vaccines Aged Out No longer eligi ble based on patient's age to complete this topic HPV Vaccines Aged Out No longer eligi ble based on patient's age to complete this topic IPV Vaccines Aged Out No longer eligi ble based on patient's age to complete this topic Meningococcal Vaccine Aged Out No kylah mariajose eligible based on patient's age to complete this topic RSV under 20 months Aged Out No longe r eligible based on patient's age to complete this topic Rotavirus Vaccines Aged Out No longer eligible based on patient's age to complete this topic Goals Goal Patient Goal Type Associated Problems Recent Progress Patient-Stated? Author Blood Pressure < 140/90 Blood Pressure 130/91(2024 1:28 PM EST) No Aida Ragland, PharmD Record Your Blood Sugar As Directed General No Phanis-Aida Medina, PharmD Hemoglobin A1c < 7 Result Component 6.6( 8:44 AM EST) No Phanis-Veronica Medinasa, PharmD Procedures Procedure Name Priority Date/Time Associated Diagnosis Comments LACTIC ACID Routine 03/20/2024 2:28 PM EST C-REACTIVE PROTEIN Routine 03/20/2024 2: 28 PM EST MAGNESIUM Routine 03/20/2024 2:28 PM EST BASIC METABOLIC PANEL Routine 03/20/2024 2:28 PM EST HEPATIC FUNCTION PANEL Routine 03/20/2024 2:28 PM EST CBC WITH AUTO DIFFERENTIAL Routine 03/20/2024 2:28 PM EST XR CHEST 1 VIEW Routine 02/29/2024 1:36 PM EST BACTERIAL VAGINOSIS PANEL Routine 02/19/2024 1:18 PM EST POCT FRANKLIN-14 URINE DRUG SCREEN Routine 02/04/2024 9:31 AM EST FPC (current) use of opiate analgesic HEMOGLOBIN A1C Routine 01/02/2024 8:44 AM EST LIPID PANEL, STANDARD Routine 01/02/2024 8:44 AM EST BASIC METABOLIC PANEL Routine 01/02/2024 8:44 AM EST ALBUMIN, RANDOM URINE W/CREATININE Routine 01/02/2024 8:44 AM EST Type 2 diabetes mellitus with hyperlipidemia (CMS/HCC) POCT GLYCATED HEMOGLOBIN, TOTAL Routine 12/30/2023 1:24 PM EST Type 2 diabetes mellitus with hyperlipidemia (CMS/HCC) POCT GLUCOSE Routine 12/30/2023 1:23 PM EST Type 2 diabetes mellitus with hyperlipidemia (CMS/HCC) GLUCOSE, WHOLE BLOOD Routine 12/28/2023 1:19 PM EST XR CHEST 2 VIEWS Routine 12/28/2023 12:2 3 PM EST SARS COV2/INFLUENZA A/B AND RSV RNA QL NAAT Routine 12/28/2023 11:46 AM EST PROPHYLAXIS - ADULT Routine 10/06/2023 9 :00 AM EDT Dental plaque PANORAMIC RADIOGRAPHIC IMAGE Routine 09/12/2023 3:00 PM EDT PERIODIC ORAL EVALUATION - ESTABLISHED PATIENT Routine 09/12/2023 3:00 PM EDT BI MAMMOGRAM SCREENING TOMOSYNTHESIS BILATERAL Routine 03/20/2023 12:57 PM EST BITEWINGS - 4 RADIOGRAPHIC IMAGES Routine 08/12/2022 9:00 AM EDT HM COLONOSCOPY Routine 12/27/2021 ZZZ HISTORICAL HPV E6/E7 RFLX ALFRED 16 18/45 Routine 05/09/2020 11:19 AM EDT from Last 3 Months or Most Recently Relevant to Health Maintenance Results * (ABNORMAL) CBC auto differential (03/20/2024 2:28 PM EST) White Blood Count 6.8 4.8 - 10.8 X10*3/uL [facility] Red Blood Count 4.08(L) 4.20 - 5.50 X10*6/uL [facility] Hemoglobin 13.0 12.0 - 16.0 g/dl [facility] Hematocrit 38.0 37.0 - 47.0 % [facility] Mean Corpuscular Volume 93.1 80.0 - 98.0 fL [facility] Mean Corpuscular Hemoglobin 31.9 27.0 - 33.0 pg [facility] Mean Corpuscular HGB Conc 34.2 31.0 - 35.0 g/dl [facility] Red Cell Distribution Width 14.1 11.0 - 16.0 % [facility] Platelet Count 280 160 - 400 X10*3/uL [facility] Mean Platelet Volume 9.2(L) 9.4 - 12.3 fL [facility] Neutrophils Percent Auto 53.1 45 - 73 % [facility] Imm Gran Pct Auto 0.1 0.0 - 0.4 % [facility] Lymphocytes Percent Auto 36.2 20 - 40 % [facility] Monocytes Percent Auto 7.9 2 - 11 % [facility] Eosinophils Percent Auto 2.4 0 - 4 % [facility] Basophils Percent Auto 0.3 0 - 2 % [facility] NRBC Pct Auto 0.0 0.0 - 0.2 /100WBC [facility] Neutrophils Absolute Auto 3.6 2.0 - 8.3 x10*3/uL [facility] Imm Gran Abs Auto 0.01 0.00 - 0.03 X10*3/uL [facility] Lymphocytes Absolute Auto 2.5 1.2 - 4.9 X10*3/uL [facility] Monocytes Absolute Auto 0.5 0.1 - 1.2 X10*3/uL [facility] Eosinophils Absolute Auto 0.2 0.0 - 0.4 X10*3/uL [facility] Basophils Absolute Auto 0.0 0.0 - 0.2 X10*3/uL [facility] NRBC Abs Auto 0.000 0.0 - 0.012 X10*3/uL [facility] 03/20/2024 2:28 PM EST 03/20/2024 2:33 PM EST us Generic External Data Provider LAB BLOOD ORDERAB LES Final Result Performing Organization Address [facility]/ZIP Co de Phone Number [facility] [address] [place] [phone] * (ABNORMAL) C-reactive Protein (03/20/2024 2:28 PM EST) C Reactive Protein 3.90(H) < or = 0.50 mg/dL [facility] 03/20/2024 2:28 PM EST 03/20/2024 2:33 PM EST us Generic External Data Provider LAB BLOOD ORDERAB LES Final Result [facility] [address] [place] [phone] * Magnesium (03/20/2024 2:28 PM EST) Magnesium 2.2 1.6 - 2.6 mg/dL [facility] 03/20/2024 2:28 PM EST 03/20/2024 2:33 PM EST Generic External Data Provider LAB BLOOD ORDERAB LES Final Result Performing Organization Address [facility] Co de Phone Number [facility] [address] [place] [phone] * Lactic Acid (03/20/2024 2:28 PM EST) Pathologist [facility] Lactic Acid 0.8 0.5 - 2.0 mmol/L [facility] 03/20/2024 2:28 PM EST 03/20/2024 2:33 PM EST Generic External Data Provider LAB BLOOD ORDERAB LES Final Result Performing Organization Address [facility] Phone Number [facility] [address] [place] [phone] * (ABNORMAL) Hepatic Function Panel (03/20/2024 2:28 PM EST) Bilirubin, Total 0.4 0.0 - 1.0 mg/dL [facility] Bilirubin, Direct 0.2 0.0 - 0.5 mg/dL [facility] Aspartate Amino Transferase 173(H) 5 - 31 U/L [facility] Alanine Aminotransferase 249(H) 0 - 31 U/L [facility] Total Protein 7.8 6.5 - 8.0 g/dL [facility] Albumin Level 3.8 3.5 - 5.0 g/dL [facility] Alkaline Phosphatase 138(H) 39 - 117 U/L [facility] 03/20/2024 2:28 PM EST 03/20/2024 2:33 PM EST us Generic External Data Provider LAB BLOOD ORDERAB LES Final Result Performing Organization Address City/[facility]/ZIP Co de Phone Number [facility] [address] [place] [phone] * (ABNORMAL) Basic Metabolic Panel (03/20/2024 2:28 PM EST) Only the most recent of2 resultswithin the time period is included. Sodium 143 135 - 145 mmol/L [facility] Potassium 3.7 3.3 - 5.1 mmol/L [facility] Chloride 112(H) 96 - 108 mmol/L [facility] Carbon Dioxide 23 22 - 29 mmol/L [facility] Anion Gap 12 12 - 20 [facility] Urea Nitrogen (BUN) 13 9 - 16 mg/dL [facility] Creatinine, Serum 0.82 0.5 - 1.4 mg/dL [facility] Creatinine Clr Calc Pharmacy 73.7 [facility] Comment:Provided height and weight: 157.48 cm,91.172 kg.eGFR (calculated from the MDRD study equation) and eCrCl(calculated from the Cockcroft-Gault equation) are based ondifferent parameters and may not yield comparable results.If eCrCl result is absurd, please check patient'sheight/weight. Estimated Glomerular Filt Rate >60 [facility] Comment:Chronic Kidney Disea se: Estimated GFR < 60 mL/min/1.48w5Lgckbc Kidney Disease: Estimated GFR < 15 mL/min/1.73m2 Glucose 112 60 - 115 mg/dL [facility] Calcium 8.7 8.4 - 10.2 mg/dL [facility] 03/20/2024 2:28 PM EST 03/20/2024 2:33 PM EST us Generic External Data Provider LAB BLOOD ORDERAB LES Final Result Performing Organization Address City/[facility]/ZIP Co de Phone Number [facility] [address] [place] [address] [place] [phone] * XR Chest 1 View (02/29/2024 1:36 PM EST) Anatomical Region Laterality Modality Chest Radiographic Griselda ging 02/29/2024 1:36 PM EST Narrative 02/29/2024 1:38 PM EST ? [facility] ?[address] ?[place] [address] ?XRay Report ? Signed ? Patient: Avinash Vic,Nuvia E ?MR ?? #: [id number] ? : 1960 ?Acct:[id number] ? Age/Sex: 63 / F ?ADM Date: 02/29/24 ? Loc: HO.ED ? Attending Dr: ? Ordering Physician: Kourtney Jones MD ?? Date of Service: 02/29/24 ?? Procedure(s): XR chest 1V ?? Accession Number(s): [id number] ? cc: Kourtney Jones MD; ANTHONY RUIZ [...] in OV> ? 02/29/24 1337 ? DD/ ? TD/TT: 02/29/246 ? Associate Professor Of Biostatistics: ? Procedure Note Vinicius Frederick - 02/29/[address] [address] XRay Report Signed Patient: Nuvia Fay EMR #: [id number] : 1Acct:[id number] Age/Sex: 63 / FADM Date: 02/29/24 Loc: HO.ED Attending Dr: Ordering Physician: Kourtney Jones MD Date of Service: 02/29/24 Procedure(s): XR chest 1V Accession Number(s): [id number] cc: Kourtney Jones MD; ANTHONY RUIZ NP [...] signed by Ligia Myrick MD in OV> 02/29/247 DD/ 35 TD/TT: 02/29/241335 Associate Professor Of Biostatistics: [facility] External Provider IMG XR PROCEDURES Edited Result [...] ORDERABLES Final Result [facility] [address] [place] [address] [phone] * POCT FRANKLIN-14 Urine Drug Screen (02/04/2024 9:31 AM EST) Urine Urine specimen obtained by clean catch procedure / Unknown 02/04/2024 9:31 AM EST Narrative Azeb Hall RN - 02/04/2024 9:31 AM EST negative for THC, MOP, OXY, RENETTA, MET, AMP, BZO, BAR, MTD, BUPG, TCA, MDMA, PCP, PPX. Lot# [id number] Exp: 01-23-25 Anthony PAGE POINT OF CARE TEST ENTER/EDIT OR DERABLES Final Result * Albumin, Random Urine W/Creatinine (01/02/2024 8:44 AM EST) Creatinine, Urine 47.20 mg/dL [facility] Microalbumin Urine 7.0 mg/L [facility] Microalbum Creatinine Ratio Ur 14.8 <30 ug/mg cr [facility] Comment:Albumin/Creatinine R atio Reference Ranges: Normal: < 30 ug/mg creatinine Microalbuminuria: 30 - 300 ug/mg creatinineClinical Albuminuria: > 300 ug/mg creatinine Urine (Urine, Random) 01/02/2024 8:44 AM EST 01/02/2024 11:09 AM EST Anthony PAGE LAB URINE ORDERABLES Final Resul t [facility] [address] [place] [phone] * (ABNORMAL) Hemoglobin A1c (01/02/2024 8:44 AM EST) Hemoglobin A1c 6.6(H) <6.0 % [facility] Comment:Hemoglobin A1C Refer ence Range Adults: 4.8 - 6.0 % Non diabetic: < 6.0 % Goal: < 7.0 %Additional Action Suggested: > 8.0 %Note: Hemoglobin A1c results are invalid for patients with abnormal amounts of HbF. Blood transfusions may impact the HbA1c concentration in the patient sample. Estimated Average Glucose 143 mg/dL [facility] Comment:eAG = Estimated ave rage glucose which is %A1C expressed asaverage glucose, using the formula of the P2O-GvvxjihHyefswi Glucose study (ADAG), Diabetes Care, Vol.31,#8,2007 01/02/2024 8:44 AM EST 01/02/2024 11:03 AM EST us Generic External Data Provider LAB BLOOD ORDERAB LES Final Result Performing Organization Address City/[facility]/ZIP Co de Phone Number [facility] [address] [place] [phone] * Lipid Panel, Standard (01/02/2024 8:44 AM EST) Triglycerides 93 <150 mg/dL [facility] Comment:Desirable Triglyceri de: less than 150 mg/dLBorderline High Triglyceride 150-199 mg/dLHigh Triglyceride: 200-499 mg/dLVery High Triglyceride: greater than or equal to 5OO mg/dL Cholesterol 177 <200 mg/dL [facility] Comment:Desirable Cholestero l: less than 200 mg/dLBorderline High Cholesterol: 200-239 mg/dLHigh Cholesterol: greater than 239 mg/dL LDL Cholesterol Calculated 90 <100 mg/dL [facility] Comment:Desirable LDL: less than 100 mg/dLNear Optimal/Above Optimal LDL: 110- 129 mg/dLBorderline High LDL: 130-159 mg/dLHigh LDL: 160-189 mg/dLVery High LDL: greater than or equal to 190 mg/dL HDL Cholesterol 69 >40 mg/dL [facility] Comment:Desirable HDL: great er than 40 mg/dL Note: This HDL assay may give artificially low results in patients with liver disease. 01/02/2024 8:44 AM EST 01/02/2024 11:03 AM EST us Generic External Data Provider LAB BLOOD ORDERAB LES Final Result [facility] [address] [place] [phone] * (ABNORMAL) POCT HGB A1C (12/30/2023 1:24 PM EST) Pathologist [facility] Hemoglobin A1C 6.8(A) 4.0 - 6.0 % QC Media Lot # [id number] Lot# Expiration Date Blood 12/30/2023 1:24 PM EST Anthony Ruiz ANP POINT OF CARE TEST ENTER/EDIT OR DERABLES Final Result * (ABNORMAL) POCT Glucose (12/30/2023 1:23 PM EST) [facility] Glucose Blood, POC 209(A) 60 - 200 mg/dL QC Media Lot # [id number] Lot# Expiration Date Blood Capillary blood specimen / Unknown 12/30/2023 1:23 PM EST Anthony Ruiz ANP POINT OF CARE TEST ENTER/EDIT OR DERABLES Final Result * (ABNORMAL) Glucose, Whole Blood (12/28/2023 1:19 PM EST) [facility] Glucose, Whole Blood 123(H) 60 - 115 mg/dL [facility] Comment:METER #: [id number] 12/28/2023 1:19 PM EST 12/28/2023 1:22 PM EST [facility] External Data Provider LAB BLOOD ORDERAB LES Final Result [facility] [address] [place] [phone] * XR Chest 2 Views (12/28/2023 12:23 PM EST) Anatomical Region Laterality Modality Chest Radiographic Griselda ging 12/28/2023 12:2 3 PM EST Narrative 12/28/2023 1:57 PM EST ? [facility] ?[address] ?[place] [address] ?XRay Report ? Signed ? Patient: Avinash Ho,Nuvia E ?MR ?? #: [id number] ? : 1960 ?Acct:[id number] ? Age/Sex: 63 / F ?ADM Date: 12/28/23 ? Loc: HO.ED ? Attending Dr: ? Ordering Physician: Alexandra Martinez NP ?? Date of Service: 12/28/23 ?? Procedure(s): XR chest 2V ?? Accession Number(s): [id number] ? cc: ANTHONY RUIZ NP; Alexandra Martinez NP ? EXAMINATION: XR CHEST 2 VIEWS ? CLINICAL INFORMATION: ?? cough, r./o PNA ? COMPARISON: ?? October 2023 ? TECHNIQUE: XR CHEST 2 VIEWS, 2 ??Views ? Lungs and Jyothi: Elevation left hemidiaphragm unchanged. Lungs otherwise ?? are clear. ? Pleura: Normal. Costophrenic angles are sharp. No pneumothorax. ? Heart: The heart is normal in size. ? Mediastinum: There is unfolding of the aorta unchanged. There are ?? aortic calcifications.. ? Bones: No acute changes. ? XR/XR chest 2V ?? IMPRESSION: ? 1. ??No radiographic evidence of acute infiltrates or failure. ? 2. ??Elevation left hemidiaphragm unchanged. ? Electronically signed by: ??Wesly Ponce MD ??12/28/2023 01:54 PM EST ? Dictated By: ?Wesly Ponce MD ? Signed By: ?<Electronically signed by Wesly Ponce MD in OV> ?12/28/23 1354 ? DD/ 1223 ? TD/TT: 12/28/23 1247 ? Associate Professor Of Biostatistics: HS ? Procedure Note Vinicius Frederick - 12/28/2023 [facility] [address] [facility] [place] [address] XRay Report Signed Patient: Avinash HoNuvia EMR #: [id number] : 1Acct:[id number] Age/Sex: 63 / FADM Date: 12/28/23 Loc: HO.ED Attending Dr: Ordering Physician: Alexandra Martinez NP Date of Service: 12/28/23 Procedure(s): XR chest 2V Accession Number(s): [id number] cc: ANTHONY RUIZ APPLICATION SECURITY ARCHITECT; Alexandra Martinez APPLICATION SECURITY ARCHITECT EXAMINATION: XR CHEST 2 VIEWS CLINICAL INFORMATION: cough, r./o PNA COMPARISON: October 2023 TECHNIQUE: XR CHEST 2 VIEWS, 2 Views Lungs and Jyothi: Elevation left hemidiaphragm unchanged. Lungs otherwise are clear. Pleura: Normal. Costophrenic angles are sharp. No pneumothorax. Heart: The heart is normal in size. Mediastinum: There is unfolding of the aorta unchanged. There are aortic calcifications.. Bones: No acute changes. XR/XR chest 2V IMPRESSION: 1. No radiographic evidence of acute infiltrates or failure. 2. Elevation left hemidiaphragm unchanged. Electronically signed by: Wesly Ponce MD 12/28/2023 01:54 PM EST Dictated By: Wesly Ponce MD Signed By: <Electronically signed by Wesly Ponce MD in OV> 12/28/23 1354 DD/ 1223 TD/TT: 12/28/23 1247 Associate Professor Of Biostatistics: HS [facility] External Provider IMG XR PROCEDURES Edited Result - Final * SARS-CoV-2 RNA, Influenza A/B, and RSV RNA, Ql NAAT (12/28/2023 11:46 AM EST) Influenza A PCR NEGATIVE Negative [facility] Influenza B PCR NEGATIVE Negative [facility] Resp Syncy Virus RNA Qual PCR NEGATIVE Negative [facility] SARS COV2 PCR NEGATIVE Negative [facility] Comment:All test results mus t be correlated with clinical findings.Negative results do not preclude SARS-CoV2, influenza Avirus, influenza B virus and/or RSV infectionand should not be used as the sole basis for treatment orother patient management decisions. Negative results must becombined with clinical observations, patient history, andepidemiological information.This test has not been evaluated for monitoring treatment ofinfection.This test has been authorized by the FDA under an EmergencyUse Authorization (EUA) for use by authorized laboratories.Testing performed on the [employer] GeneXpert utilizingreal-time RT-PCR.All SARS CoV2 and positive influenza A/B results arereported to [facility]. 12/28/2023 11:4 6 AM EST 12/28/2023 11:54 AM EST us Generic External Data Provider LAB MICROBIOLOGY - GENERAL ORDERABLES Final Result Performing Organization Address City/State/[facility] Co de Phone Number [facility] [address] [place] [phone] * BI Mammogram Screening Tomosynthesis Bilateral (03/20/2023 12:57 PM EST) Anatomical Region Laterality Modality Breast Bilateral Mammography 03/20/2023 12:5 7 PM EST Narrative 04/01/2023 9:47 AM EST ? [facility] [facility] ? [address] ?[place] [address] ? Mammography Report ? Signed ? Patient: Nuvia Fay E ?MR ?? #: [id number] ? : 1960 ?Acct:[id number] ? Age/Sex: 62 / F ?ADM Date: 02//24 ? Loc: HO.MAMMO ? Attending Dr: Monica Lozano CNM ? Ordering Physician: Monica Lozano CNM ?Results: 2Beni ?? gn Findings ? Date of Service: 03/20/23 ?Follow Up: 1 Year From Orig ?? inal Mammogram ? Procedure(s): MM tomosynthesis screening BI ?? Accession Number(s): [id number] ? cc: Monica Lozano CNM; ANTHONY RUIZ NP ? EXAMINATION: ?? MM SCREENING DIGITAL BREAST TOMOSYNTHESIS, BILATERAL ? CLINICAL INFORMATION: ? Screening. Asymptomatic. ? COMPARISON: ?? Mammography: This study is compared with prior exams dating back to ?? 2017. ? TECHNIQUE: ?? Digital breast tomosynthesis is performed in both the craniocaudal and ?? mediolateral oblique views along with computer-aided detection (CAD). ?? Synthesized 2D images are generated from the tomosynthesis. ? FINDINGS: ?? The breasts are almost entirely fatty (ACR BI-RADS breast composition ?? Category a). ? There are no significant masses, abnormal calcifications, or other ?? abnormalities. ?? There is a tissue marker in the right breast from prior benign ?? percutaneous biopsy. ? MM/MM tomosynthesis screening BI ?? IMPRESSION: ?? No mammographic evidence of malignancy. ? ASSESSMENT: ? BI-RADS BI-RADS 2 - Benign Findings ? RECOMMENDATION: ?? Routine annual mammography screening. ? 1 year F/U ? This examination should not preclude the clinical evaluation of a ?? suspicious palpable abnormality. ? This patient's information was entered into a reminder system with a ?? target due date for their next mammogram. ? Dictated By: ?Yanely Hogue MD ? Signed By: ?<Electronically signed by Yanely Hogue MD in OV> ? 04/01/23 0943 ? DD/ 1257 ? TD/TT: ? Associate Professor Of Biostatistics: ? Procedure Note Otoniel, Image - 04/01/2023 [facility] [address] Garcia, [place] [address] Mammography Report Signed Patient: Nuvia Fay EMR #: [id number] : 1Acct:[id number] Age/Sex: 62 / FADM Date: 03/20/23 Loc: HO.MAMMO Attending Dr: Monica Lozano CNM Ordering Physician: Monica LozanoMResults: 2Beni gn Findings Date of Service: 03/20/23Follow Up: 1 Year From Orig inal Mammogram Procedure(s): MM tomosynthesis screening BI Accession Number(s): [id number] cc: Monica Lozano CNM; ANTHONY RUIZ NP EXAMINATION: MM SCREENING DIGITAL BREAST TOMOSYNTHESIS, BILATERAL CLINICAL INFORMATION: Screening. Asymptomatic. COMPARISON: Mammography: This study is compared with prior exams dating back to 2018. TECHNIQUE: Digital breast tomosynthesis is performed in both the craniocaudal and mediolateral oblique views along with computer-aided detection (CAD). Synthesized 2D images are generated from the tomosynthesis. FINDINGS: The breasts are almost entirely fatty (ACR BI-RADS breast composition Category a). There are no significant masses, abnormal calcifications, or other abnormalities. There is a tissue marker in the right breast from prior benign percutaneous biopsy. MM/MM tomosynthesis screening BI IMPRESSION: No mammographic evidence of malignancy. ASSESSMENT: BI-RADS BI-RADS 2 - Benign Findings RECOMMENDATION: Routine annual mammography screening. 1 year F/U This examination should not preclude the clinical evaluation of a suspicious palpable abnormality. This patient's information was entered into a reminder system with a target due date for their next mammogram. Dictated By: Yanely Hogue MD Signed By: <Electronically signed by Yanely Hogue MD in OV> 04/01/23 0943 DD/ 1257 TD/TT: Associate Professor Of Biostatistics: [facility] External Provider IMG BI PROCEDURES Final Result * (ABNORMAL) Hm Colonoscopy (12/27/2021) Colonoscopy Abnormal(A ) Normal Historical Provider HEALTH MAINTENANCE Final Result * HPV E6/E7 RFLX ALFRED 16 18/45 (05/09/2020 11:19 AM EDT) HPV mRNA E6/E7 rflx Not Detected Not Detected [facility] Comment: Methodology: Business Info Consultant-Mediated Amplification This assay detects E6/E7 viral messenger RNA (mRNA) from 14 high-risk HPV types (16,18,31,33,35,39,45,51,52,56,58,59,66,68). The analytical performance characteristics of this assay have been determined by [employer]. The modifications have not been cleared or approved by the FDA. This assay has been validated pursuant to the CLIA regulations and is used for clinical purposes. For additional information, please refer to http://education.[employer]faq/KLU295m2 (This link if provided for information/ educational purposes only.) THIS TEST WAS PERFORMED AT: [facility] [address] [place] [address],[address] [place], [place] ??[address] HERNAN WARREN MD 05/09/2020 11:1 9 AM EDT Yohana VailToole HISTORICAL/NON ORDERABLE LABS Fi nal Result [facility] [address] from Last 3 Months or Most Recently Relevant to Health Maintenance Insurance [facility] Care Teams Data Administrator Relationship Specialty Start Date End Date Anthony Ruiz ANP [address] [place] [address] PCP - General Family Medicine 09/23/19
--- OUTSIDE RECORDS SUMMARY | 2024-03-20 14:55 | XMS_ITS | Encounter Summary ---
Author Organization [employer] Address 75 [facility] 7t [place] [address] Care Team Providers Care Wellhead Pumper Name Role Phone Sariah Vicekrs Primary Care Provider [phone] Reason for Visit * Reason Comments Med Refill Encounter Details Date Type Department Care Team ([facility] st Contact Info) Description 12/27/[address] [facility] MED[facility]INE [address] [place] [address] Sariah Vickers ANP 230 [place] [address] Neck pain Social History Tobacco Use Types [...] AM EST Office Visit [facility] ADULT DENTAL [address] [place] [address] Nuvia Duarte [address] [place] [address] 04/12/2024 1:30 PM EST Office Visit [facility] MED[facility]INE [address] [place] [address] Sariah Vickers ANP [address] [place] [address] 04/23/2024 11:30 AM EST Clinical Support [address] [address] Azeb Hall, RN [address] [place] [address] documented as of this encounter Goals Goal [...] Neck pain Cervicalgia documented in this encounter Care Teams Wellhead Pumper Relationship Specialty Start Date End Date Sariah Vickers ANP [address] [place] [address] PCP - General Family Medicine 09/23/19 documented as of this encounter
--- OUTSIDE RECORDS SUMMARY | 2024-03-20 14:55 | XMS_ITS | Encounter Summary ---
Author Organization [employer] Address 75 [facility] 7t [place] [address] Care Team Providers Care Director Funeral Name Role Phone Sariah Vikcers Primary Care Provider [phone] Reason for Visit * Reason Comments Med Refill Encounter Details Date Type Department Care Team ([facility] st Contact Info) Description 02/28/2023 Refill [facility] MEDIC[facility] [address] [place] [address] Sariah Vickers ANP 230 [place] [address] Cervicalgia Social History Tobacco Use Types Packs/Day [...] Description 04/09/2024 10:00 AM EST Office Visit [facility] ADULT DENTAL [address] [place] [address] Nuvia Duarte [address] [place] [address] 04/12/2024 1:30 PM EST Office Visit [facility] [address] [place] [address] Sariah Vickers ANP [address] [place] [address] 04/23/2024 11:30 AM EST Clinical Support [address] [address] Azeb Hall, RN 505 [place] [address] documented as of this encounter Goals Goal [...] Diagnoses Diagnosis Cervicalgia documented in this encounter Care Teams Director Funeral Relationship Specialty Start Date End Date Sariah Vickers ANP [address] [place] [address] PCP - General Family Medicine 09/23/19 documented as of this encounter
--- OUTSIDE RECORDS SUMMARY | 2024-03-20 14:55 | XMS_ITS | Encounter Summary ---
Author Organization [employer] Address [address] [facility] [address] 7t [place] [address] Care Team Providers Care Houseman Name Role Phone Sariah Vickers Primary Care Provider [phone] Reason for Visit * Reason Comments Med Refill Encounter Details Date Type Department Care Team ([facility] st Contact Info) Description 10/03/2023 Refill [facility] [address] [place] [address] Sariah Vickers ANP 230 [place] [address] Chronic SI joint pain Social History Tobacco [...] Description 04/09/2024 10:00 AM EST Office Visit [facility] ADULT DENTAL [address] [place] [address] Nuvia Duarte 230 [place] [address] 04/12/2024 1:30 PM EST Office Visit [facility] [address] [place] [address] Sariah Vickers ANP 230 [place] [address] 04/23/2024 11:30 AM EST Clinical Support [address] [address] Azeb Hall, MARTIN [address] [place] [address] documented as of this encounter Goals Goal Patient Goal Type Associated Problems Recent Progress Patient-Stated? Author Blood Pressure < 140/90 Blood Pressure 130/91(2024 1:28 PM EST) No Phanis-Veronica Medinasa, PharmD Record Your Blood Sugar As Directed General No Phanis-Gambl ciara, Aida, PharmD Hemoglobin A1c < 7 Result Component 6.6( 8:44 AM EST) No Phanis-Aida [place], PharmD documented as of this encounter Visit Diagnoses Diagnosis Chronic SI joint pain Disorders of sacrum documented in this encounter Additional Health Concerns Assessment Noted Time PHQ-9 Depression Total Score: 12 09/30/ 024 2:58 PM EDT documented as of this encounter Care Teams Houseman Relationship Specialty Start Date End Date Sariah Vickers ANP 230 [place] [address] PCP - General Family Medicine 09/23/19 documented as of this encounter
--- OUTSIDE RECORDS SUMMARY | 2024-03-20 14:55 | XMS_ITS | Encounter Summary ---
Author Organization [employer] Address 75 [facility] 7t [place] [address] Care Team Providers Care Welding Equipment Repairer Name Role Phone Sariah Vickers Primary Care Provider [phone] Reason for Visit * Reason Comments Med Refill Encounter Details Date Type Department Care Team ([facility] st Contact Info) Description 01/04/2024 Refill [facility] [address] [place] [address] Sariah Vickers ANP 230 [place] [address] Cervicalgia Social History Tobacco Use Types Packs/Day [...] Description 04/09/2024 10:00 AM EST Office Visit [facility] ADULT DENTAL [address] [place] [address] Nuvia Duarte 230 [place] [address] 04/12/2024 1:30 PM EST Office Visit [facility] MEDICINE [address] [place] [address] Sariah Vickers ANP 230 [place] [address] 04/23/2024 11:30 AM EST Clinical Support [address] [address] Azeb Hall, RN 505 [place] [address] documented as of this encounter Goals Goal [...] documented as of this encounter Care Teams Welding Equipment Repairer Relationship Specialty Start Date End Date Sariah Vickers ANP 230 [place] [address] PCP - General Family Medicine 09/23/19 documented as of this encounter
--- OUTSIDE RECORDS SUMMARY | 2024-03-20 14:55 | XMS_ITS | Encounter Summary ---
Author Organization [employer] [facility] Address [address] [place] [address] 7t [place] [address] Care Team Providers Care Pneumatic System Conveyor Operator Name Role Phone Sariah Vickers Primary Care Provider Reason for Visit * Reason Comments Med Refill Encounter Details Date Type Department Care Team (Late Contact Info) Description 07/10/2022 Refill [facility] MEDICINE 230 [place] [address] Sariah Vickers ANP 230 [place] [address] Vertigo Social History Tobacco Use Types Packs/Day Years Used Date Smoking Tobacco: Former Cigarettes 2 2016 Passive Smoke Exposure: Past Smokeless Tobacco: [...] suspected to have Coronavirus/COVID-19? No / Unsure 06/21/2022 8:48 AM EDT documented as of this encounter Plan of Treatment Upcoming Encounters Date Type Department Care Team (Late Contact Info) Description 04/09/2024 10:00 AM EST Office Visit [facility] ADULT DENTAL [address] [place] [address] Nuvia Duarte 230 [place] [address] 04/12/2024 1:30 PM EST Office Visit [address] [address] Sariah Vickers ANP [address] [place] [address] 04/23/2024 11:30 AM EST Clinical Support [address] [address] Azeb Hall RN 505 [place] [address] documented as of this encounter Visit Diagnoses Diagnosis Vertigo Dizziness and giddiness documented in this encounter Care Teams Pneumatic System Conveyor Operator Relationship Specialty Start Date End Date Sariah Vickers ANP [address] [place] [address] PCP - General Family Medicine 09/23/19 documented as of this encounter
--- OUTSIDE RECORDS SUMMARY | 2024-03-20 14:55 | XMS_ITS | Encounter Summary ---
Author Organization [employer] Address 75 [facility] 7t [place] [address] Care Team Providers Care Flight Purser Name Role Phone Sariah Vickers Primary Care Provider [phone] Reason for Visit * Reason Onset Date Comments Durable Medical Equipment 03/01/2024 Encounter Details Date Type Department Care Team (Late st Contact Info) Description 03/01/2024 Telephone [facility] MEDICINE 230 [place] [address] Sariah Vickers ANP 230 [place] [address] Durable Medical Equipment Social History Tobacco Use [...] encounter Miscellaneous Notes * Telephone Encounter - Dianna Hillman RN - 03/03/2024 11:42 AM EST Telephone call to pt using [employer] radiologic technologist chief Latoya #[id number]. Advised pt that [facility] received request for shower chair from [facility] [employer], asked for clarification on if she needs this, pt then stated if this is about the shower chair, I don't want to talk about it, I'll just buy it , pt then hung up. Will send as FYI to PCP. * Telephone Encounter - KAYLEE Lopez - 03/02/2024 4:21 PM EST Please clarify with pt directly whether she actually needs a shower chair. To my knowledge pt is very mobile. I know she has a rollator for PRN use when her back is acting up but I don't think she needs a shower chair. If she is worried about mobility, could do grab bars if she doesn't have any in her shower. * Telephone Encounter - Kang Levin RN - 03/01/2024 1:43 PM EST Please see below. Patients care worker is requesting the following DME on the patients behalf.Please review and advise request and if approved please send message to [place] to generate RX. DME Item: Shower Chair. Supportive DX:M79.606,M25.561,M25.562. * Telephone Encounter - Kang Levin RN - 03/01/2024 1:43 PM EST ----- Message from Arlin Ramirez sent at 03/01/2024 12:48 PM EST ----- Regarding: DME request Contact: Sanjay, I am (Arlin [place]), [employer] for [facility] [employer], requesting the following DME???s on behalf of Nuvia Da Silva 60. DME Item: Shower Chair. Supportive DX:M79.606,M25.561,M25.562. If you should have any inquiries regarding this request, feel free to contact the [employer] below. [employer]: Arlin [place] E-mail: [email or web address] Product Consultant: Osiris Bains E-mail: [email or web address] Thanks in advance for your assistance with this request. Sincerely, [facility] [employer] documented in this encounter Plan of Treatment Upcoming Encounters Date Type Department Care Team (Late st Contact Info) Description 04/09/2024 10:00 AM EST Office Visit [facility] ADULT DENTAL [address] [place] [address] Nuvia Duarte 230 [place] [address] 04/12/2024 1:30 PM EST Office Visit [facility] MEDICINE [address] [place] [address] Sariah Vickers ANP 230 [place] [address] 04/23/2024 11:30 AM EST Clinical Support [address] [address] Azeb Hall RN 505 [place] [address] documented as of this encounter Goals Goal [...] documented as of this encounter Care Teams Flight Purser Relationship Specialty Start Date End Date Sariah Vickers ANP 230 [place] [address] PCP - General Family Medicine 09/23/19 documented as of this encounter
--- OUTSIDE RECORDS SUMMARY | 2024-03-20 14:55 | XMS_ITS | Encounter Summary ---
Author Organization [email or web address] [facility] Address 75 [facility] 7t [place] [address] Care Team Providers Care Recruitment Director Name Role Phone Sariah Vickers Primary Care Provider [phone] Reason for Visit * Reason Onset Date Comments Nurse Triage 01/14/2023 Encounter Details Date Type Department Care Team ([facility] st Contact Info) Description 01/14/2023 Telephone [facility] MEDICINE 230 [place] [address] Sariah Vickers ANP 230 [place] [address] Nurse Triage Social History Tobacco Use Types [...] t he electric, gas, oil or water [employer] threatened to shut off services in your [...] Telephone Encounter - Natacha Matson RN - 01/14/2023 9:26 AM EST Called pt. Via [employer] yoker machine operator [phone] Kelly. Pt. States that she has been having a fire feeling in her legs. Its like A burning that goes down her legs . Pt. Unsure if it because of her Diabetes. Pt. Went to [facility] ED for pain on her left side and down both legs. Pt. States they did a urine but did not do any Ultrasound on her legs. Pt. Became very upset at ED because people were being seenbefore her that came in after her so she asked ED nurse to discharge her and she went home. Pt. Still having burning in legs bilaterally and pain with walking. Pt. Wants to be seen today by PCP. I notified pt. That she has an upcoming appt. With PCP on 01/24/23 but stated she can be seen today for ev aluation by another provider. Protocol Used: Leg Pain (Adult)Pt. Appt today at 10am. Will send note to clinical primary care coordinator to have note put in chart . Care Advice Discussed: * Reassurance and Education - Leg Pain * Pain Medicines * Reassurance and Education - Muscle Strain * Reassurance and Education - Overuse * Telephone Encounter - Alaina Beckman - 01/14/2023 8:47 AM EST Symptom: Leg Pain - Not From Injury Outcome: Schedule an urgent appointment (within 1 hour) or talk to a nurse or provider soon Reason: Severe pain now, pt was seen at [facility] on 01/13 for pain in leg. Pt is still symptomatic The caller accepted this outcome Please contact pt at [phone] (director of maintenance needed) documented in this encounter Plan of Treatment Upcoming Encounters Date Type Department Care Team ([facility] st Contact Info) Description 04/09/2024 10:00 AM EST Office Visit [facility] ADULT DENTAL 230 [place] [address] Felicia, Nuvia 230 [place] [address] 04/12/2024 1:30 PM EST Office Visit [address] [address] Sariah Vickers ANP 230 [place] [address] 04/23/2024 11:30 AM EST Clinical Support [address] [address] Azeb Hall, RN 505 [place] [address] documented as of this encounter Goals Goal [...] on filedocumented in this encounter Care Teams Recruitment Director Relationship Specialty Start Date End Date Sariah Vickers ANP [address] [place] [address] PCP - General Family Medicine 09/23/19 documented as of this encounter
--- OUTSIDE RECORDS SUMMARY | 2024-03-20 14:55 | XMS_ITS | Encounter Summary ---
Author Organization [employer] Address 75 [facility] 7t [place] [address] Care Team Providers Care Consulting Networking Engineer Name Role Phone Sariah Vickers Primary Care Provider [phone] Reason for Visit * Reason Comments Med Refill Encounter Details Date Type Department Care Team ([facility] st Contact Info) Description 10/24/2023 Refill [facility] MEDICINE 230 [place] [address] Sairah Vickers ANP [address] [place] [address] Neck pain Social History Tobacco Use Types [...] Description 04/09/2024 10:00 AM EST Office Visit [facility] ADULT DENTAL [address] [place] [address] Nuvia Duarte 230 [place] [address] 04/12/2024 1:30 PM EST Office Visit [facility] MEDICINE [address] [place] [address] Sariah Vickers ANP [address] [place] [address] 04/23/2024 11:30 AM EST Clinical Support [facility] MEDICINE [address] [place] [address] Azeb Hall, MARTIN [address] [place] [address] documented as of this encounter Goals Goal [...] documented as of this encounter Care Teams Consulting Networking Engineer Relationship Specialty Start Date End Date Sariah Vickers ANP [address] [place] [address] PCP - General Family Medicine 09/23/19 documented as of this encounter
--- OUTSIDE RECORDS SUMMARY | 2024-03-20 14:55 | XMS_ITS | Encounter Summary ---
Author Organization [employer] Address 75 [facility] 7t [place] [address] Care Team Providers Care Seat Joiner Chainstitch Name Role Phone Sariah Vickers Primary Care Provider [phone] Reason for Visit * Reason Onset Date Comments Med Refill 01/09/2024 Encounter Details Date Type Department Care Team ([facility] st Contact Info) Description 01/09/2024 Telephone [facility] MEDICINE [address] [place] [address] Sariah Vickers ANP [address] [place] [address] Med Refill Social History Tobacco Use Types [...] Description 04/09/2024 10:00 AM EST Office Visit [facility] ADULT DENTAL [address] [place] [address] Nuvia Duarte [address] [place] [address] 04/12/2024 1:30 PM EST Office Visit [facility] MEDICINE [address] [place] [address] Sariah Vickers ANP 230 [place] [address] 04/23/2024 11:30 AM EST Clinical Support [address] [address] Azeb Hall, MARTIN [address] [place] [address] documented as of this encounter Goals Goal Patient Goal Type Associated Problems Recent Progress Patient-Stated? Author Blood Pressure < 140/90 Blood Pressure 130/91(2024 1:28 PM EST) No Phanis-Gambl ciara, Aida, PharmD Record Your Blood Sugar As Directed General No Piers-Gambl e, Aida, PharmD Hemoglobin A1c < 7 Result Component 6.6( 4 8:44 AM EST) No Phanis-Gambl eVeronicasa, PharmD documented as of this encounter Visit Diagnoses Not on filedocumented in this encounter Additional Health Concerns Assessment Noted Time PHQ-9 Depression Total Score: 12 024 2:58 PM EDT documented as of this encounter Care Teams Seat Joiner Chainstitch Relationship Specialty Start Date End Date Sariah Vickers ANP 230 [place] [address] PCP - General Family Medicine 09/23/19 documented as of this encounter
--- OUTSIDE RECORDS SUMMARY | 2024-03-20 14:55 | XMS_ITS | Encounter Summary ---
Author Organization [employer] [facility] Address [address] [facility] 7t [place] [address] Care Team Providers Care Network Programmer Name Role Phone Sariah Vickers Primary Care Provider [phone] Reason for Visit * Reason Onset Date Comments Med Refill 03/04/2023 Encounter Details Date Type Department Care Team ([facility] st Contact Info) Description 03/04/2023 Telephone [facility] [address] [place] [address] Sariah Vickers ANP [address] [place] [address] Med Refill Social History Tobacco Use Types [...] encounter Miscellaneous Notes * Telephone Encounter - Lewis Meade - 03/04/2023 12:19 PM EST TC from pt requesting medication refill. Medications needing refill : traMADol (Ultram) 50 MG tablet To be sent to: [facility] - [place], [place] - [address] [place] [address] documented in this encounter Plan of Treatment Upcoming Encounters Date Type Department Care Team (Late st Contact Info) Description 04/09/2024 10:00 AM EST Office Visit [facility] ADULT DENTAL [address] [place] [address] Nuvia Duarte [address] [place] [address] 04/12/2024 1:30 PM EST Office Visit [facility] MED[facility]INE [address] [place] [address] Sariah Vickers ANP [address] [place] [address] 04/23/2024 11:30 AM EST Clinical Support [facility] [address] [place] [address] Azeb Hall RN [address] [place] [address] documented as of this encounter Goals Goal Patient Goal Type Associated Problems Recent Progress Patient-Stated? Author Blood Pressure < 140/90 Blood Pressure 130/91(2024 1:28 PM EST) No Aida Ragland, Dileep Record Your Blood Sugar As Directed General No Aida Ragland PharmD Hemoglobin A1c < 7 Result Component 6.6( 4 8:44 AM EST) No Aida Ragland PharmD documented as of this encounter Visit Diagnoses Not on filedocumented in this encounter Care Teams Network Programmer Relationship Specialty Start Date End Date Sariah Vickers ANP [address] [place] [address] PCP - General Family Medicine 09/23/19 documented as of this encounter
--- OUTSIDE RECORDS SUMMARY | 2024-03-20 14:55 | XMS_ITS | Encounter Summary ---
Author Organization [employer] Address [address] [facility] [address] 7t [place] [address] Care Team Providers Care Green Pipefitter Name Role Phone Sariah Vickers Primary Care Provider [phone] Reason for Visit * Reason Comments Med Refill Encounter Details Date Type Department Care Team ([facility] st Contact Info) Description 10/03/[address] [facility] [address] [place] [address] Sariah Vickers ANP [address] [place] [address] Chronic SI joint pain Social History Tobacco [...] 04/09/2024 10:00 AM EST Office Visit [facility] [address] [place] [address] Nuvia Duarte [address] [place] [address] 04/12/2024 1:30 PM EST Office [facility] [address] [place] [address] Sariah Vickers ANP [address] [place] [address] 04/23/2024 11:30 AM EST Clinical Support [address] [address] Azeb Hall, MARTIN [address] [place] [address] documented as of this encounter Goals Goal [...] documented as of this encounter Care Teams Green Pipefitter Relationship Specialty Start Date End Date Sariah Vickers ANP [address] [place] [address] PCP - General Family Medicine 09/23/19 documented as of this encounter
--- OUTSIDE RECORDS SUMMARY | 2024-03-20 14:55 | XMS_ITS | Encounter Summary ---
Author Organization [employer] Address [address] [facility] 7t [place] [address] Care Team Providers Care Vessel Manager Name Role Phone Sariah Vickers Primary Care Provider [phone] Reason for Visit * Reason Comments Med Refill Encounter Details Date Type Department Care Team ([facility] st Contact Info) Description 11/14/2023 Refill [facility] [address] [place] [address] Sariah Vickers ANP [address] [place] [address] Neck pain Social History Tobacco Use Types [...] Description 04/09/2024 10:00 AM EST Office Visit [facility] ADULT DENTAL [address] [place] [address] Nuvia Duarte [address] [place] [address] 04/12/2024 1:30 PM EST Office Visit [facility] [address] [place] [address] Sariah Vickers ANP [address] [place] [address] 04/23/2024 11:30 AM EST Clinical Support [facility] [address] [place] [address] Azeb Hall, MARTIN [address] [place] [address] documented as of this encounter Goals Goal [...] documented as of this encounter Care Teams Vessel Manager Relationship Specialty Start Date End Date Sariah Vickers ANP [address] [place] [address] PCP - General Family Medicine 09/23/19 documented as of this encounter
--- OUTSIDE RECORDS SUMMARY | 2024-03-20 14:55 | XMS_ITS | Clinical Summary ---
Author Organization [facility] Address [address] [place] [address] Phone Care Team Providers Care Bronc Buster Name Role Phone Sariah Vickers NP Primary Care Provider [phone] Social History Tobacco Use Types Packs/Day Years [...] age to complete this topic Care Teams Bronc Buster Relationship Specialty Start Date End Date Sariah Vickers NP [address] [place] [phone] PCP - General 12/03/23
--- OUTSIDE RECORDS SUMMARY | 2024-03-20 14:56 | XMS_ITS | Encounter Summary ---
Author Organization [employer] Address [address] [facility] 7t [place] [address] Care Team Providers Care Group Program Manager Name Role Phone Sariah Vickers Primary Care Provider [phone] Reason for Visit * Reason Comments Med Refill Encounter Details Date Type Department Care Team ([facility] st Contact Info) Description 06/30/2023 Refill [facility] MED[facility] [address] [place] [address] Sariah Vickers ANP [address] [place] [address] Neck pain Social History Tobacco Use Types [...] 04/09/2024 10:00 AM EST Office Visit [facility] ADULT DENTAL [address] [place] [address] Nuvia Duarte [address] [place] [address] 04/12/2024 1:30 PM EST Office Visit [facility] MED[facility]INE [address] [place] [address] Sariah Vickers ANP [address] [place] [address] 04/23/2024 11:30 AM EST Clinical Support [facility] [address] [place] [address] Azeb Hall, MARTIN [address] [place] [address] documented as of this encounter Goals Goal [...] documented as of this encounter Care Teams Group Program Manager Relationship Specialty Start Date End Date Sariah Vickers ANP [address] [place] [address] PCP - General Family Medicine 09/23/19 documented as of this encounter
--- OUTSIDE RECORDS SUMMARY | 2024-03-20 14:56 | XMS_ITS | Encounter Summary ---
Author Organization [employer] Address [address] [facility] 7t [place] [address] Care Team Providers Care Vamp Cut Out Worker Name Role Phone Sariah Vickers Primary Care Provider Reason for Visit * Reason Onset Date Comments Med Refill Durable Medical Equipment 07/15/2023 Foam M attress/Raised Toilet Seat Encounter Details Date Type Department Care Team ([facility] st Contact Info) Description 07/15/2023 Refill [facility] MED[facility] [address] [place], [place] [phone] Sariah Vickers ANP [address] [place] [address] Neck pain Social History Tobacco Use Types [...] encounter Miscellaneous Notes * Telephone Encounter - Ailyn Wallace - 07/16/2023 11:04 AM EDT Please see request sent via email by [facility] Manager Heart Failure Arlin Baker. Please Advise. Good morning, Our mutual patient CM : [id number] is requesting an oval raised toilet seat no handles and stated reason for the request is due to just had knee surgery , and back pain, leg weakness. Also requesting a full size mattress gel foam overlay pad., please reply to this email so our team can start processing. Thank you kindly for all you do, Arlin documented in this encounter Plan of Treatment Upcoming Encounters Date Type Department Care Team (Late st Contact Info) Description 04/09/2024 10:00 AM EST Office Visit [facility] ADULT DENTAL [address] [place] [address] Nuvia Duarte [address] [place] [address] 04/12/2024 1:30 PM EST Office Visit [facility] MEDICINE [address] [place] [address] Sariah Vickers ANP [address] [place] [address] 04/23/2024 11:30 AM EST Clinical Support [facility] MED[facility] [address] [place] [address] Azeb Hall, MARTIN [address] [place] [address] documented as of this encounter Goals Goal [...] documented as of this encounter Care Teams Vamp Cut Out Worker Relationship Specialty Start Date End Date Sariah Vickers ANP [address] [place] [address] PCP - General Family Medicine 09/23/19 documented as of this encounter
--- OUTSIDE RECORDS SUMMARY | 2024-03-20 14:56 | XMS_ITS | Encounter Summary ---
Author Organization [employer] [facility] Address [address] [place] [address] 7t [place] [address] Care Team Providers Care Centrifugal Drier Operator Name Role Phone Sariah Vickers Primary Care Provider [phone] Reason for Visit * Reason Comments Med Refill Encounter Details Date Type Department Care Team (Late Contact Info) Description 07/17/[address] [facility] MED[facility]INE [address] [place] [address] Sariah Vickers ANP [address] [place] [address] Neck pain Social History Tobacco Use Types [...] suspected to have Coronavirus/COVID-19? No / Unsure 07/17/2022 8:54 AM EDT documented as of this encounter Plan of Treatment Upcoming Encounters Date Type Department Care Team (Late Contact Info) Description 04/09/2024 10:00 AM EST Office Visit [facility] ADULT DENTAL [address] [place] [address] Nuvia Duarte [address] [place] [address] 04/12/2024 1:30 PM EST Office Visit [address] [address] Sariah Vickers ANP [address] [place] [address] 04/23/2024 11:30 AM EST Clinical Support [address] [address] Azeb Hall, MARTIN [address] [place], [place] [phone] documented as of this encounter Visit Diagnoses Diagnosis Neck pain Cervicalgia documented in this encounter Care Teams Centrifugal Drier Operator Relationship Specialty Start Date End Date Sariah Vickers ANP [address] [place] [address] PCP - General Family Medicine 09/23/19 documented as of this encounter
--- OUTSIDE RECORDS SUMMARY | 2024-03-20 14:56 | XMS_ITS | Encounter Summary ---
Author Organization [employer] [facility] Address [address] [facility] 7t [place] [address] Care Team Providers Care Ui Architect Name Role Phone Sariah Vickers Primary Care Provider [phone] Reason for Visit * Reason Comments Med Refill Encounter Details Date Type Department Care Team ([facility] st Contact Info) Description 05/21/2023 Refill [facility] [address] [place] [address] Sariah Vickers ANP [address] [place] [address] Neck pain Social History Tobacco Use Types [...] encounter Miscellaneous Notes * Telephone Encounter - Audi Parnell - 05/23/2023 9:07 AM EDT Tc from pt requesting a refill for acetaminophen (Tylenol) 325 MG tablet documented in this encounter Plan of Treatment Upcoming Encounters Date Type Department Care Team (Late st Contact Info) Description 04/09/2024 10:00 AM EST Office Visit [facility] ADULT DENTAL [address] [place] [address] Felicia, Nuvia [address] [place] [address] 04/12/2024 1:30 PM EST Office Visit [facility] MED[facility] [address] [place] [address] Sariah Vickers ANP [address] [place] [address] 04/23/2024 11:30 AM EST Clinical Support [facility] [address] [place] [address] Azeb Hall, MARTIN [address] [place] [address] documented as of this encounter Goals Goal Patient Goal Type Associated Problems Recent Progress Patient-Stated? Author Blood Pressure < 140/90 Blood Pressure 130/91(2024 1:28 PM EST) No Aida Ragland, PharmD Record Your Blood Sugar As Directed General No Aida Ragland, PharmD Hemoglobin A1c < 7 Result Component 6.6( 4 8:44 AM EST) No Aida Ragland, Dileep documented as of this encounter Visit Diagnoses Diagnosis Neck pain Cervicalgia documented in this encounter Care Teams Ui Architect Relationship Specialty Start Date End Date Sariah Vickers ANP [address] [place] [address] PCP - General Family Medicine 09/23/19 documented as of this encounter
--- OUTSIDE RECORDS SUMMARY | 2024-03-20 14:56 | XMS_ITS | Encounter Summary ---
Author Organization [employer] [facility] Address [address] [place] [address] 7t [place] [address] Care Team Providers Care Land Title Examiner Name Role Phone Sariah Vickers Primary Care Provider [phone] Reason for Visit * Reason Comments Med Refill Encounter Details Date Type Department Care Team (Late Contact Info) Description 07/12/2022 Refill [facility] [address] [place] [address] Sariah Vickers ANP [address] [place] [address] Social History Tobacco Use Types Packs/Day Years [...] 04/09/2024 10:00 AM EST Office Visit [facility] ADULT DENT[facility] [address] [place] [address] Nuvia Duarte [address] [place], [place] [phone] 04/12/2024 1:30 PM EST Office Visit [address] [address] Sariah Vickers ANP [address] [place] [address] 04/23/2024 11:30 AM EST Clinical Support [address] [phone] Azeb Hall RN [address] [place], [place] [phone] documented as of this encounter Visit Diagnoses Not on filedocumented in this encounter Care Teams Land Title Examiner Relationship Specialty Start Date End Date Sariah Vickers ANP [address] [place] [address] PCP - General Family Medicine 09/23/19 documented as of this encounter
--- OUTSIDE RECORDS SUMMARY | 2024-03-20 14:56 | XMS_ITS | Encounter Summary ---
Author Organization [employer] Address [address] [facility] 7t [place] [address] Care Team Providers Care Filenet Developer Name Role Phone Sariah Vickers Primary Care Provider [phone] Reason for Visit * Reason Comments Med Refill Encounter Details Date Type Department Care Team ([facility] Contact Info) Description 08/14/2022 Refill [facility] [address] [place] [address] Sariah Vickers ANP [address] [place] [address] Severe persistent asthma without complication Social History [...] suspected to have Coronavirus/COVID-19? No / Unsure 08/15/2022 10:45 AM EDT documented as of this encounter Plan of Treatment Upcoming Encounters Date Type Department Care Team ([facility] Contact Info) Description 04/09/2024 10:00 AM EST Office Visit [facility] ADULT DENTAL [address] [place] [address] Brendan Duartearis [address] [place] [address] 04/12/2024 1:30 PM EST Office Visit [address] [address] Sariah Vickers ANP [address] [place] [address] 04/23/2024 11:30 AM EST Clinical Support [address] [address] Azeb Hall RN [address] [place] [address] documented as of this encounter Visit Diagnoses Diagnosis Severe persistent asthma without complication documented in this encounter Care Teams Filenet Developer Relationship Specialty Start Date End Date Sariah Vickers ANP [address] [place] [address] PCP - General Family Medicine 09/23/19 documented as of this encounter
--- OUTSIDE RECORDS SUMMARY | 2024-03-20 14:56 | XMS_ITS | Encounter Summary ---
Author Organization [employer] Address [address] [facility] [address] 7t [place] [address] Care Team Providers Care Inspector Balance Wheel Motion Name Role Phone Sariah Vickers Primary Care Provider [phone] Reason for Visit * Reason Comments Med Refill Encounter Details Date Type Department Care Team ([facility] st Contact Info) Description 07/10/2023 Refill [facility] [address] [place] [address] Sariah Vickers ANP [address] [place] [address] Chronic SI joint pain Social History Tobacco [...] [facility] AD[facility] [address] [place] [address] Nuvia Duarte [address] [place] [address] 04/12/2024 1:30 PM EST Office Visit [facility] [address] [place] [address] Sariah Vickers ANP [address] [place] [address] 04/23/2024 11:30 AM EST Clinical Support [address] [address] Azeb Hall, MARTIN [address] [place] [address] documented as of this encounter Goals Goal [...] documented as of this encounter Care Teams Inspector Balance Wheel Motion Relationship Specialty Start Date End Date Sariah Vickers ANP [address] [place] [address] PCP - General Family Medicine 09/23/19 documented as of this encounter
[2024-03-20 15:07] LABS: Lipase 16 U/L (8-78)
[2024-03-20] MEDS: cefTRIAXone sodium 1 GM VIAL IVPUSH (15:11)
[2024-03-20] MEDS: 0.9 % Sodium Chloride 1,000 ML 999 ML IV (15:14)
[2024-03-20] MEDS: vancomycin/NS 2,000 MG/500 ML PLAST..BAG 250 MG IV (15:19)
--- NOTE | 2024-03-20 15:29 | PC.NURSE ---
pt brought back to exam room from waiting area, pt has large area of redness and warmth over lower right abdomen. IV access was obtained (20g L forearm) IV ABX and fluids initiated . pt to have ct scan of abdomen w/contrast- call brown within reach
[2024-03-20 15:50] LABS: Erythrocyte Sedimentation Rate 46 MM/HR (0-20)
[2024-03-20 15:58] LABS: Glucose, Whole Blood 65 mg/dL (60-115)
[2024-03-20 16:57] VITALS: BP 138/80; PULSE 83; RESP 20; TEMP 36.5; O2SAT 98
[2024-03-20 17:05] LABS: Glucose, Whole Blood 163 mg/dL (60-115)
[2024-03-20] MEDS: diphenhydrAMINE HCL 50 MG/ML VIAL IVPUSH (17:06)
[2024-03-20] MEDS: Famotidine/PF 20 MG/2 ML VIAL IVPUSH (17:06)
--- NOTE | 2024-03-20 17:12 | PC.NURSE ---
this nurse was called to pt room- pt c/o redness and itching, on forehead and arms- Pa Linda notified, Vanco 2g d/c'd IV benadryl, and IV pepcid given per APR- pt airway patent speaking in full sentiences, call brown within reach
[2024-03-20] MEDS: iohexoL 350 MG/ML 100 ML INFUS..BTL IV (18:34)
--- NOTE | 2024-03-20 20:26 | PM.IMHP ---
History of Present Illness Date of Service: 03/20/24 Attending physician on admission: Bernadine Shen Chief Complaint: Abdominal redness Pt is a 63-year-old female with a PMH significant for?asthma/COPD overlap syndrome, insulin-dependent type 2 diabetes, HLD, peripheral neuropathy, hypothyroidism, and GERD who presents to the ED with?worsening abdominal redness. Pt has a longstanding hx of carbuncles and presented to general surgery office 4 days prior for evaluation of 1 on her right anterior abdominal wall and left buttock. Apparently has not needed I&D for carbuncles in the past. Was prescribed Bactrim double strength which she took with no relief. Instead, symptoms worsened with redness continuing to spread and abdomen became warm to the touch and painful. Subjective fever and chills at home. Noted carbuncle did open up and drain a small amount of mostly clear liquid 1-2 days ago. Denies fever, chills, nausea, vomiting. No chest pain/pressure, palpitations. Denies shortness or breath or difficulty breathing. Of note, pt developed adverse reaction with pruritus when being administered vancomycin in the ED. Was given Benadryl 50 mg IV to good effect and with resolution of symptoms. Pt reports pruritus only, no SOB or difficulty breathing. In the ED pt with 1 episode HR of 93, vitals otherwise stable and WNL. No fever. Labs were significant for ESR 46, CRP 3.90, AST 173, ALT 249, alk-phos 138. No leukocytosis. Stable H&H. No significant electrolyte abnormalities. Renal function WNL. CT?of abdomen and pelvis found abdominal wall cellulitis without abscess. Pt was treated in the ED with IVF, Protonix, ceftriaxone, vancomycin, and Benadryl. Pt will be admitted to the hospital for treatment and further evaluation of abdominal wall cellulitis secondary to carbuncle that failed outpatient therapy. Review of Systems Review of Systems: Negative except for that which is stated in the [facility] Medical History Trochanteric bursitis of right hip Patellofemoral arthritis of left knee Dry mouth Environmental allergies Type 2 diabetes mellitus with hyperglycemia Menopausal state Type 2 diabetes mellitus MOCK (dyspnea on exertion) Kidney stone on left side Leg pain Tear of medial meniscus of left knee Abnormal finding on ultrasound Abnormal ultrasound of kidney Bilateral renal cysts Severe persistent asthma Asthma Bilateral hand pain Bilateral knee pain Carpal tunnel syndrome of right wrist Cubital tunnel syndrome on right Renal calculi UTI (urinary tract infection) History of kidney stones COVID-19 COVID-19 COPD exacerbation Bronchitis Chest pain Acute asthma exacerbation Tubular adenoma of colon Vulvovaginitis Bronchitis Candidiasis of mouth and esophagus Yeast infection Papanicolaou smear for cervical cancer screening Preop pulmonary/respiratory exam Allergic rhinitis Anxiety and depression Fibromyalgia HTN (hypertension) PTSD (post-traumatic stress disorder) Vertigo Diabetes Spondylosis of cervical region without myelopathy or radiculopathy Low vitamin D level Non-toxic multinodular goiter Hypothyroidism DVT (deep venous thrombosis) Cocaine abuse Family History Father No problems noted. Mother Myocardial infarction CVA (cerebral vascular accident) Surgical History History of esophagogastroduodenoscopy (EGD) H/O colonoscopy with polypectomy History of selective injection of anesthetic agent around lumbar nerve root Hx of right breast biopsy History of hysterectomy History of lithotripsy Social History Household Members: None Alcohol intake: never Patient Tobacco Use Status: Never used Tobacco Smoked in Last 30 Days: No Use of substances other than those prescribed or required for medical reasons: No Advance Directives: No Advance Directives Information Provided: No Do you have a plan to hurt others: No Plan Patient : No Current occupational status: disabled 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 Meds Allergies Allergy/AdvReac Type Severity Reaction Status Date / Time aspirin [Aspirin] Allergy Mild ITCHY Verified 03/20/24 14:11 THROAT azithromycin Allergy Unknown Unknown Verified 03/20/24 14:11 naproxen Allergy Unknown Unknown Verified 03/20/24 14:11 simvastatin Allergy Unknown Unknown Verified 03/20/24 14:11 Fish Containing Products Allergy Swelling Verified 03/20/24 14:11 vancomycin Allergy Rash Verified 03/20/24 19:57 onion [ONION] AdvReac Mild RED FACE Verified 03/20/24 14:11 Home Medications ?Medication ?Instructions ?Recorded ?Confirmed ?Last Taken ?Type calcium 600 mg (as 1 tab PO BID 11/20/19 03/16/24 Unknown History carbonate)-vitamin D3 10 mcg (400 unit) tablet potassium chloride 20 mEq 20 meq PO BID 11/20/19 03/16/24 Unknown History tablet,extended release(part/cryst) zolpidem 10 mg tablet 10 mg PO BEDTIME PRN Insomnia 11/20/19 03/16/24 Unknown History clonazepam 1 mg tablet (Klonopin) 1 mg PO DAILY 03/08/20 03/16/24 Unknown History montelukast 10 mg tablet 10 mg PO BEDTIME 03/08/20 03/16/24 Unknown History multivitamin-ferrous 1 tab PO DAILY 07/06/21 03/16/24 Unknown History fumarate-folic acid 18 mg-400 mcg tablet (Certavite-Antioxidant) fluoride (sodium) 1.1 % dental appl PO 10/16/21 03/16/24 Unknown History cream (SF 5000 Plus) tramadol 50 mg tablet 50 mg PO BID PRN Pain 01/31/22 03/16/24 Unknown History diclofenac sodium 1 % topical gel g topical 05/07/22 03/16/24 Unknown History acetaminophen 325 mg tablet 325 mg PO PRN pain 06/11/22 03/16/24 Unknown History amlodipine 10 mg tablet 10 mg PO DAILY 07/09/23 03/16/24 Unknown History atorvastatin 80 mg tablet 80 mg PO BEDTIME 07/09/23 03/16/24 Unknown History cetirizine 10 mg tablet 10 mg PO QPM 07/09/23 03/16/24 Unknown History enalapril maleate 20 mg tablet 20 mg PO DAILY 07/09/23 03/16/24 Unknown History buspirone 15 mg tablet 15 mg PO TID 12/18/23 03/16/24 Unknown History insulin lispro 100 unit/mL 4 unit subcut TID PRN 12/18/23 03/16/24 Unknown History subcutaneous pen (Humalog KwikPen (U-100) Insulin) meclizine 25 mg tablet mg PO 12/18/23 03/16/24 Unknown History Physical Exam Vital Signs and Narrative: Vital Signs: Last Vital Signs Temp 97.7 F 03/20/24 16:57 Pulse 83 03/20/24 16:57 Resp 20 03/20/24 16:57 BP 138/80 03/20/24 16:57 Pulse Ox 98 03/20/24 16:57 O2 Del Method Room Air 03/20/24 16:57 BMI result Body Mass Index 36.8 General: AOx3, no acute distress Resp: CTA bilaterally CVS: S1, S2, RRR GI: +BS, NT, no distention Skin: Right lower abdominal wall with lesion with surrounding area of induration, erythema, and that is exquisitely tender to the touch. No fluctuance noted. As pictured below Neuro: Cranial nerves II-XII grossly intact bilaterally. Motor grossly intact bilaterally Extremities: No edema Psych: Appropriate affect Results Labs 03/20/24 14:28 03/20/24 14:28 Labs: Laboratory Results - last 24 hr 03/20/24 03/20/24 03/20/24 14:28 15:54 17:01 MCV 93.1 MCH 31.9 MCHC 34.2 RDW 14.1 Plt Count 280 MPV 9.2 L Immature Gran % (Auto) 0.1 Neut % (Auto) 53.1 Lymph % (Auto) 36.2 [place] % (Auto) 7.9 Eos % (Auto) 2.4 Baso % (Auto) 0.3 Lymph # (Auto) 2.5 [place] # (Auto) 0.5 Eos # (Auto) 0.2 Baso # (Auto) 0.0 Abs Immat Gran (auto) 0.01 Absolute Neuts (auto) 3.6 Absolute Nucleated RBC 0.000 Nucleated RBC % (auto) 0.0 ESR 46 H Anion Gap 12 Estim Creat Clear Calc 73.7 Estimated GFR > 60 POC Glucose 65 163 H Random Glucose 112 Lactic Acid 0.8 Calcium 8.7 D Magnesium 2.2 Total Bilirubin 0.4 Direct Bilirubin 0.2 AST 173 H ALT 249 H Alkaline Phosphatase 138 H C-Reactive Protein 3.90 H Total Protein 7.8 Albumin 3.8 Lipase 16 Assessment and Plan (1) Abdominal wall cellulitis: Status: Acute Plan Pt is a 63-year-old female with a PMH significant for?asthma/COPD overlap syndrome, insulin-dependent type 2 diabetes, HLD, peripheral neuropathy, hypothyroidism, and GERD who presents to the ED with?worsening abdominal redness. Pt will be admitted to the hospital for treatment and further evaluation of abdominal wall cellulitis secondary to carbuncle that failed outpatient therapy. Abdominal wall cellulitis Secondary to carbuncle Seen by general surgery 4 days prior and started on Bactrim DS No sepsis: No fever, tachypnea, or leukocytosis; lactic acid WNL Will treat with vancomycin and ceftriaxone, started 03/20/2024 Pt with pruritus from vancomycin, administer Benadryl 25 mg IV prior to vanco doses General surgery consult Asthma/COPD overlap syndrome Not in acute exacerbation Continue home inhalers HTN Continue amlodipine, enalapril HLD Continue statin Insulin-dependent type 2 diabetes Sliding scale insulin, Lantus Diabetic diet Peripheral neuropathy Continue gabapentin Hypothyroidism Continue levofloxacin GERD Continue PPI Mood disorder Continue mood stabilizers Full Code Attending:?Dr. Shen DVT Prophylaxis: Lovenox Pt will require a hospitalization of at least two nights for treatment of?abdominal wall cellulitis secondary to carbuncle that failed outpatient therapy and will require administration of IV antibiotics. Quality Stroke Does the patient have a stroke diagnosis?: No VTE Prior VTE?: No VTE Risk Level:: Medical - moderate - high VTE Device Contraindication: Treatment Not Indicated VTE Drug Contraindication: N/A - Med Ordered
--- NOTE | 2024-03-20 20:47 | PC.NURSE ---
summary of care: 63yo F Primarily Malian-speaking , a&o x4, independent w/ ADL's at baseline PMHx:asthma/COPD overlap syndrome, HTN, DM, and PTSD, HLD, GERD, andhypothyroid. Presents today ED w/ c/o right lower abdominal wall pain and infection x 1 week, in addition to cysts on her buttocks. Patient was seen and treated by General surgery on 03/16/2024 gen surgery performed I&D to abdomen and prescribed Bactrim without relief of redness/pain. 20g IV placed in L-forearm, and 22g placed in right arm. labs were obtained an were significant for: ESR/CRP elevated. + transaminitis. Pt had CT imaging in dept which was siginificant for:1. Skin thickening over the anterior right abdominal wall, compatible with cellulitis. No underlying abscess. 2. 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 Pt was given rocephin in dept, Vancomycin 2gm was initiated however pt call ed this nurse to the room toward the end of infusion, and complained of itching and redness on her arms, and forehead. Vancomycin stopped. Patient given IV Benadryl and Pepcid. No SOB, throat closing sensation or oral swelling. Talking in complete sentences throughout, no respiratory distress noted. Plan is for admission for further eval and tx of cellulitis.
--- NOTE | 2024-03-20 21:13 | PHA.PROG ---
Admission Date/Time: Indication: skin Weight in k.172 kg Adjusted body weight in Kg: [place] body weight in Kg: Obesity Dosing Indication % IBW: Serum Creatinine - Last 168 Hours 03/20/24 14:28 Creatinine 0.82 Estimated CrCl and GFR - Last 168 Hours 03/20/24 14:28 Estim Creat Clear Calc 73.7 Estimated GFR > 60 Vancomycin Loading Dose: 2000mg x 1 Current Vancomycin Dosing Regimen: 1000mg Q12H Vancomycin Monitoring using AUC goal of 400 - 600 range with trough as surrogate marker: 505 mg/L Date and Time for next Vancomycin Level to be drawn: 03/21 @2100 Pharmacist Comments on Vancomycin Plan: Predicted trough of 16.4mg/L Vancomycin dosing will take advantage of [employer] as a clinical decision support tool that uses Bayesian modeling to calculate individual patient's pharmacokinetic parameters and forecast the patient's drug concentration time course with the target goal AUC 24 range of 400 - 600 mg/L/hr.
--- NOTE | 2024-03-20 21:42 | PC.NURSE ---
2100 POC 135- no insulin coverage
[2024-03-20 21:46] LABS: Glucose, Whole Blood 135 mg/dL (60-115)
--- NOTE | 2024-03-20 21:47 | PC.NURSE ---
Report given to Talita, RN- pt to be moved to Overflow 4
[2024-03-20 22:00] VITALS: BP 139/78; PULSE 81; RESP 16; TEMP 36.6
[2024-03-20] MEDS: Enoxaparin Sodium 40 MG/0.4 ML SYRINGE SUBCUT (22:27)
[2024-03-20] MEDS: vancomycin HCL 1,000 MG in 0.9 % Sodium Chloride 250 ML 270 MG IV (22:28)
[2024-03-20] MEDS: diphenhydrAMINE HCL 50 MG/ML VIAL 25 MG IVPUSH (22:49)
--- NOTE | 2024-03-20 22:53 | PC.NURSE ---
Pt medicated with Benadryl as ordered prior to Vanco administration. Pt currently receiving Vanco 1g via IV and tolerating well. No sign of allergic reaction noted. Right hand IV line removed per pt request as pt states it was hurting and burning. No infiltration noted.
[2024-03-21 06:00] VITALS: BP 108/58; PULSE 73; RESP 16; TEMP 36.6; O2SAT 96
[2024-03-21 06:59] LABS: Alanine Aminotransferase 218 U/L (0-31); Albumin Level 3.4 g/dL (3.5-5.0); Alkaline Phosphatase 126 U/L (39-117); Anion Gap 11 (12-20); Aspartate Amino Transferase 151 U/L (5-31); Bilirubin Total 0.4 mg/dL (0.0-1.0); Blood Urea Nitrogen 7 mg/dL (9-16); Calcium 8.8 mg/dL (8.4-10.2); Carbon Dioxide 22 mmol/L (22-29); Chloride 113 mmol/L (96-108); Estimated Glomerular Filt Rate > 60; Glucose Random 108 mg/dL (60-115); Potassium 3.4 mmol/L (3.3-5.1); Sodium 143 mmol/L (135-145); Total Protein 7.1 g/dL (6.5-8.0)
[2024-03-21 07:44] LABS: Glucose, Whole Blood 111 mg/dL (60-115)
[2024-03-21 08:39] VITALS: BP 114/74; PULSE 81; RESP 20; TEMP 36.9; O2SAT 97
--- NOTE | 2024-03-21 09:08 | P.PNIM_ITS ---
Subjective Subjective Date of Service: 03/21/24 Interval History: erythema and pain improving Physical Exam 2 Vital Signs: Vital Signs: Last Vital Signs Temp 98.4 F 03/21/24 08:39 Pulse 81 03/21/24 08:39 Resp 20 03/21/24 08:39 BP 114/74 03/21/24 08:39 Pulse Ox 97 03/21/24 08:39 O2 Del Method Room Air 03/21/24 08:39 BMI result Body Mass Index 36.8 still with erythema rlq of abdomen but improved Objective Data Active Medications Acetaminophen (Acetaminophen 325 Mg Tablet) 650 mg PO Q6H PRN PRN Reason: Pain, Mild 1-3,fever,headache Ceftriaxone Sodium (Ceftriaxone Sodium 1 Gm Vial) 1 gm IVPUSH Q24H HEIDE Dextrose (Dextrose 50 % 25 Gm/50 Ml Syringe) 25 gm IVPUSH Q15M PRN; Protocol PRN Reason: per Hypoglycemia Standing Ord. Diphenhydramine HCl (Diphenhydramine Hcl 50 Mg/Ml Vial) 25 mg IVPUSH Q6H PRN PRN Reason: Prior to vancomycin Last Admin: 03/20/24 22:49 Dose: 25 mg Documented By: KODAK Enoxaparin Sodium (Enoxaparin Sodium 40 Mg/0.4 Ml Syringe) 40 mg SUBCUT Q24H [facility] Last Admin: 03/20/24 22:27 Dose: 40 mg Documented By: KODAK Glucose (Glucose Gel 15 Gm Gel..Gram.) 15 gm PO Q15M PRN; Protocol PRN Reason: per Hypoglycemia Standing Ord. Vancomycin HCl 1,000 mg/ (Sodium Chloride) 270 mls @ 270 mls/hr IV Q12H [facility] Last Infusion: 03/20/24 23:38 Dose: Infused Documented By: KODAK Insulin Human Lispro (Insulin Lispro 100 Unit/Ml 3 Ml Vial) 0 unit SUBCUT QIDACHS [facility]; Protocol Magnesium Hydroxide (Milk Of Magnesia 30 Ml Oral.Susp) 30 ml PO DAILY PRN PRN Reason: Constipation Melatonin (Melatonin 3 Mg Tablet) 6 mg PO BEDTIME PRN PRN Reason: Insomnia Ondansetron HCl (Ondansetron Hcl 4 Mg/2 Ml Vial) 4 mg IVPUSH Q8H PRN PRN Reason: Nausea and Vomiting Pharmacy Consult (Consult Rx Vancomycin Dosing) 1 each MISCELLANE DAILY PRN PRN Reason: Consult order Sodium Chloride (0.9 % Sodium Chloride Flush 3 Ml Syringe) 3 ml IVFLUSH QSHIFT [facility] Last Admin: 03/20/24 23:55 Dose: Not Given Documented By: KODAK Non-Admin Reason: IV Running Labs 03/20/24 14:28 03/21/24 06:01 Labs: Laboratory Results - last 24 hr 03/20/24 03/20/24 03/20/24 14:28 15:54 17:01 MCV 93.1 MCH 31.9 MCHC 34.2 RDW 14.1 Plt Count 280 MPV 9.2 L Immature Gran % (Auto) 0.1 Neut % (Auto) 53.1 Lymph % (Auto) 36.2 [place] % (Auto) 7.9 Eos % (Auto) 2.4 Baso % (Auto) 0.3 Lymph # (Auto) 2.5 [place] # (Auto) 0.5 Eos # (Auto) 0.2 Baso # (Auto) 0.0 Abs Immat Gran (auto) 0.01 Absolute Neuts (auto) 3.6 Absolute Nucleated RBC 0.000 Nucleated RBC % (auto) 0.0 ESR 46 H Anion Gap 12 Estim Creat Clear Calc 73.7 Estimated GFR > 60 POC Glucose 65 163 H Random Glucose 112 Lactic Acid 0.8 Calcium 8.7 D Magnesium 2.2 Total Bilirubin 0.4 Direct Bilirubin 0.2 AST 173 H ALT 249 H Alkaline Phosphatase 138 H C-Reactive Protein 3.90 H Total Protein 7.8 Albumin 3.8 Lipase 16 03/20/24 03/21/24 03/21/24 21:41 06:01 07:40 MCV MCH MCHC RDW Plt Count MPV Immature Gran % (Auto) Neut % (Auto) Lymph % (Auto) [place] % (Auto) Eos % (Auto) Baso % (Auto) Lymph # (Auto) [place] # (Auto) Eos # (Auto) Baso # (Auto) Abs Immat Gran (auto) Absolute Neuts (auto) Absolute Nucleated RBC Nucleated RBC % (auto) ESR Anion Gap 11 L Estim Creat Clear Calc 93.0 Estimated GFR > 60 POC Glucose 135 H 111 Random Glucose 108 Lactic Acid Calcium 8.8 Magnesium Total Bilirubin 0.4 Direct Bilirubin AST 151 H ALT 218 H Alkaline Phosphatase 126 H C-Reactive Protein Total Protein 7.1 Albumin 3.4 L Lipase Assessment and Plan (1) [place] (nonalcoholic steatohepatitis): Status: Acute Plan 63F PMH diabetes, obesity, COPD, hyperlipidemia, peripheral neuropathy, hypothyroid, GERD, nonalcoholic steatohepatitis, hypothyroid presented with abdominal wall erythema and pain Abdominal wall cellulitis Continue vancomycin ceftriaxone, follow up General surgery Asthma/COPD overlap Stable Hypertension Continued amlodipine and enalapril Hyperlipidemia Continue statin Hypothyroid Continue levothyroxine Diabetes Basal bolus insulin Obesity Weight loss recommended DVT prophylaxis Lovenox Full Code reason for continued hospitalization: IV antibiotics for failure of p.o. Quality Stroke Does the patient have a stroke diagnosis?: No VTE Prior VTE?: No VTE Risk Level:: Medical - moderate - high VTE Device Contraindication: Treatment Not Indicated VTE Drug Contraindication: N/A - Med Ordered
[2024-03-21] MEDS: 0.9 % Sodium Chloride Flush 3 ML SYRINGE IVFLUSH ×3 (09:36→19:52)
--- NOTE | 2024-03-21 10:17 | PHA.MEDREC ---
Addendum entered by Diann Sparks RPh 03/21/24 10:59: [facility] REVIEWED Original Note: Pharmacy Consult ? Medication Reconciliation Pharmacy has completed the medication reconciliation. Spoke with patient through an court interpreter. She gets a med box from [facility]. Went through her list based off of claims and nacho was able to confirm. She is not on Mounjaro, she had GI issues, she is on Ozempic and had it yesterday. She has lispro at home which she uses 4 units as needed if her sugar is high, she did not have a specific scale or number. She receives Xolair injections q2w, last admin per medical record was 300 mg on 03/12/24. She last took her medications yesterday morning.
--- NOTE | 2024-03-21 10:26 | PM.CNGS ---
History of Present Illness Consult details Consult date: 03/21/24 Requesting physician: Billy Savage Narrative: 63-year-old female patient with multiple medical problems presenting with complaints of pain and cellulitis of the abdominal wall, right lower quadrant. She was previously evaluated as an outpatient by Dr. Frank and started on antibiotics. She presented to the emergency department because of increased pain associated with the site. Workup in the emergency department revealed a normal WBC. CT of the abdomen/pelvis was negative for abscess. Her past history is significant for hypertension, diabetes mellitus, asthma/COPD, PTSD, hyperlipidemia, GERD, and hypothyroidism. She is uncertain if she was injected medications in this location. Review of Systems Review of Systems: Yes all other systems are reviewed and are negative PMFSH Past Medical History Medical History Trochanteric bursitis of right hip Patellofemoral arthritis of left knee Dry mouth Environmental allergies Type 2 diabetes mellitus with hyperglycemia Menopausal state Type 2 diabetes mellitus MOCK (dyspnea on exertion) Kidney stone on left side Leg pain Tear of medial meniscus of left knee Abnormal finding on ultrasound Abnormal ultrasound of kidney Bilateral renal cysts Severe persistent asthma Asthma Bilateral hand pain Bilateral knee pain Carpal tunnel syndrome of right wrist Cubital tunnel syndrome on right Renal calculi UTI (urinary tract infection) History of kidney stones COVID-19 COVID-19 COPD exacerbation Bronchitis Chest pain Acute asthma exacerbation Tubular adenoma of colon Vulvovaginitis Bronchitis Candidiasis of mouth and esophagus Yeast infection Papanicolaou smear for cervical cancer screening Preop pulmonary/respiratory exam Allergic rhinitis Anxiety and depression Fibromyalgia HTN (hypertension) PTSD (post-traumatic stress disorder) Vertigo Diabetes Spondylosis of cervical region without myelopathy or radiculopathy Low vitamin D level Non-toxic multinodular goiter Hypothyroidism DVT (deep venous thrombosis) Cocaine abuse Family History Family History Father No problems noted. Mother Myocardial infarction CVA (cerebral vascular accident) Surgical History Surgical History History of esophagogastroduodenoscopy (EGD) H/O colonoscopy with polypectomy History of selective injection of anesthetic agent around lumbar nerve root Hx of right breast biopsy History of hysterectomy History of lithotripsy Social History Social History Household Members: Children Housing: Apartment Do you presently have visiting nurse or other home services: Yes (MEETING MANAGER) Alcohol intake: never Patient Tobacco Use Status: Never used Tobacco Smoked in Last 30 Days: No Use of substances other than those prescribed or required for medical reasons: No Have you been hit, kicked, punched, or otherwise hurt by someone within the past year? 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 Meds Allergies Allergy/AdvReac Type Severity Reaction Status Date / Time aspirin [Aspirin] Allergy Mild ITCHY Verified 03/20/24 14:11 THROAT azithromycin Allergy Unknown Unknown Verified 03/20/24 14:11 naproxen Allergy Unknown Unknown Verified 03/20/24 14:11 simvastatin Allergy Unknown Unknown Verified 03/20/24 14:11 Fish Containing Products Allergy Swelling Verified 03/20/24 14:11 vancomycin Allergy Rash Verified 03/20/24 19:57 onion [ONION] AdvReac Mild RED FACE Verified 03/20/24 14:11 Active Medications: Current Medications Acetaminophen (Acetaminophen 325 Mg Tablet) 650 mg PO Q6H PRN PRN Reason: Pain, Mild 1-3,fever,headache Ceftriaxone Sodium (Ceftriaxone Sodium 1 Gm Vial) 1 gm IVPUSH Q24H [facility] Dextrose (Dextrose 50 % 25 Gm/50 Ml Syringe) 25 gm IVPUSH Q15M PRN; Protocol PRN Reason: per Hypoglycemia Standing Ord. Diphenhydramine HCl (Diphenhydramine Hcl 50 Mg/Ml Vial) 25 mg IVPUSH Q6H PRN PRN Reason: Prior to vancomycin Last Admin: 03/20/24 22:49 Dose: 25 mg Enoxaparin Sodium (Enoxaparin Sodium 40 Mg/0.4 Ml Syringe) 40 mg SUBCUT Q24H [facility] Last Admin: 03/20/24 22:27 Dose: 40 mg Glucose (Glucose Gel 15 Gm Gel..Gram.) 15 gm PO Q15M PRN; Protocol PRN Reason: per Hypoglycemia Standing Ord. Vancomycin HCl 1,000 mg/ (Sodium Chloride) 270 mls @ 270 mls/hr IV Q12H REPLACED BY [facility] Last Infusion: 03/20/24 23:38 Dose: Infused Insulin Human Lispro (Insulin Lispro 100 Unit/Ml 3 Ml Vial) 0 unit SUBCUT QIDACHS REPLACED BY [facility]; Protocol Last Admin: 03/21/24 09:31 Dose: Not Given Magnesium Hydroxide (Milk Of Magnesia 30 Ml Oral.Susp) 30 ml PO DAILY PRN PRN Reason: Constipation Melatonin (Melatonin 3 Mg Tablet) 6 mg PO BEDTIME PRN PRN Reason: Insomnia Ondansetron HCl (Ondansetron Hcl 4 Mg/2 Ml Vial) 4 mg IVPUSH Q8H PRN PRN Reason: Nausea and Vomiting Pharmacy Consult (Consult Rx Vancomycin Dosing) 1 each MISCELLANE DAILY PRN PRN Reason: Consult order Sodium Chloride (0.9 % Sodium Chloride Flush 3 Ml Syringe) 3 ml IVFLUSH [facility] Last Admin: 03/21/24 09:36 Dose: 3 ml Home Medications ?Medication ?Instructions ?Recorded ?Confirmed ?Last Taken ?Type potassium chloride 20 mEq 20 meq PO BID 11/20/19 03/21/24 Unknown History tablet,extended release(part/cryst) zolpidem 10 mg tablet 10 mg PO BEDTIME PRN Insomnia 11/20/19 03/21/24 Unknown History clonazepam 1 mg tablet (Klonopin) 1 mg PO DAILY 03/08/20 03/21/24 Unknown History montelukast 10 mg tablet 10 mg PO BEDTIME 03/08/20 03/21/24 Unknown History multivitamin-ferrous 1 tab PO DAILY 07/06/21 03/21/24 Unknown History fumarate-folic acid 18 mg-400 mcg tablet (Certavite-Antioxidant) tramadol 50 mg tablet 50 mg PO Q12H PRN Pain 01/31/22 03/21/24 Unknown History acetaminophen 325 mg tablet 650 mg PO Q6H PRN pain 06/11/22 03/21/24 Unknown History amlodipine 10 mg tablet 10 mg PO DAILY 07/09/23 03/21/24 Unknown History atorvastatin 80 mg tablet 80 mg PO BEDTIME 07/09/23 03/21/24 Unknown History cetirizine 10 mg tablet 10 mg PO QPM 07/09/23 03/21/24 Unknown History enalapril maleate 20 mg tablet 20 mg PO DAILY 07/09/23 03/21/24 Unknown History buspirone 15 mg tablet 15 mg PO TID 12/18/23 03/21/24 Unknown History insulin lispro 100 unit/mL 4 unit subcut TID PRN Hyperglycemia 12/18/23 03/21/24 Unknown History subcutaneous pen (Humalog KwikPen (U-100) Insulin) meclizine 25 mg tablet 25 mg PO TID PRN Dizziness 12/18/23 03/21/24 Unknown History clonazepam 1 mg tablet 0.5 mg PO BEDTIME PRN Sleep 03/21/24 03/21/24 Unknown History fluticasone propionate 50 2 spray intranasal QAM 03/21/24 03/21/24 Unknown History mcg/actuation nasal spray,suspension ipratropium 0.5 mg-albuterol 3 mg 3 ml inhalation Q6H PRN Shortness 03/21/24 03/21/24 Unknown History (2.5 mg base)/3 mL nebulization Of Breath Or Wheezing soln ipratropium 20 mcg-albuterol 100 1 puff inhalation BID PRN 03/21/24 03/21/24 Unknown History mcg/actuation mist for inhalation Shortness Of Breath Or Wheezing (Combivent Respimat) lidocaine 5 % topical patch 1 patch topical DAILY PRN Pain 03/21/24 03/21/24 Unknown History risperidone 0.5 mg tablet 0.5 mg PO BID 03/21/24 03/21/24 Unknown History semaglutide 0.25 mg or 0.5 mg (2 0.5 mg subcut SA 03/21/24 03/21/24 03/20/24 10:00 History mg/3 mL) subcutaneous pen injector (Ozempic) Physical Exam Vital Signs: Vital Signs: Last Vital Signs Temp 98.4 F 03/21/24 08:39 Pulse 81 03/21/24 08:39 Resp 20 03/21/24 08:39 BP 114/74 03/21/24 08:39 Pulse Ox 97 03/21/24 08:39 O2 Del Method Room Air 03/21/24 08:39 BMI result Body Mass Index 36.8 Const: General: comfortable Nutritional Appearance: well nourished Orientation/consciousness: patient oriented x3 Resp: Effort & Inspection: normal respiratory effort, no audible wheezes, no cough and no respiratory distress GI: Other: Wide area of erythema with a central area of increased erythema and ulceration but no definite fluctuance noted to palpation. Site is tender and indurated Skin: Other: Abdomen as noted above Neuro: General: patient oriented x3 Extrem: General: No edema Results Labs 03/20/24 14:28 03/21/24 06:01 Labs: Abnormal lab results 03/20/24 03/20/24 03/20/24 Range/Units 14:28 17:01 21:41 RBC 4.08 L (4.20-5.50) X10*6/uL MPV 9.2 L (9.4-12.3) fL ESR 46 H (0-20) MM/HR Chloride 112 H (96-108) mmol/L Anion Gap (12-20) BUN (9-16) mg/dL POC Glucose 163 H 135 H (60-115) mg/dL AST 173 H (5-31) U/L ALT 249 H (0-31) U/L Alkaline Phosphatase 138 H (39-117) U/L C-Reactive Protein 3.90 H (< or = 0.50) mg/dL Albumin (3.5-5.0) g/dL 03/21/24 Range/Units 06:01 RBC (4.20-5.50) X10*6/uL MPV (9.4-12.3) fL ESR (0-20) MM/HR Chloride 113 H (96-108) mmol/L Anion Gap 11 L (12-20) BUN 7 L (9-16) mg/dL POC Glucose (60-115) mg/dL AST 151 H (5-31) U/L ALT 218 H (0-31) U/L Alkaline Phosphatase 126 H (39-117) U/L C-Reactive Protein (< or = 0.50) mg/dL Albumin 3.4 L (3.5-5.0) g/dL Short CBC 03/20/24 Range/Units 14:28 WBC 6.8 (4.8-10.8) X10*3/uL Hgb 13.0 (12.0-16.0) g/dl Hct 38.0 (37.0-47.0) % Plt Count 280 (160-400) X10*3/uL BMP 03/20/24 03/21/24 14:28 06:01 Sodium 143 143 Potassium 3.7 3.4 Chloride 112 H 113 H Carbon Dioxide 23 22 BUN 13 7 L Creatinine 0.82 0.65 Calcium 8.7 D 8.8 Liver Function 03/20/24 03/21/24 Range/Units 14:28 06:01 Total Bilirubin 0.4 0.4 (0.0-1.0) mg/dL Direct Bilirubin 0.2 (0.0-0.5) mg/dL AST 173 H 151 H (5-31) U/L ALT 249 H 218 H (0-31) U/L Alkaline Phosphatase 138 H 126 H (39-117) U/L Albumin 3.8 3.4 L (3.5-5.0) g/dL All other labs normal. Assessment and Plan (1) Abdominal wall cellulitis: Status: Acute Plan 63-year-old female patient with a persistent cellulitis of the abdominal wall which is tender but non fluctuant. Patient on IV antibiotics. We will continue to monitor for possible incision and drainage. Procedures Date of Service Date of Service: 03/21/24
[2024-03-21 11:54] LABS: Glucose, Whole Blood 118 mg/dL (60-115)
[2024-03-21] MEDS: diphenhydrAMINE HCL 50 MG/ML VIAL 25 MG IVPUSH (12:33)
[2024-03-21] MEDS: vancomycin HCL 1,000 MG in 0.9 % Sodium Chloride 250 ML 270 MG IV (12:34)
[2024-03-21] MEDS: Levothyroxine Sodium 75 MCG TABLET PO (12:35)
--- NOTE | 2024-03-21 12:55 | PC.NURSE ---
IV noted to be infiltrated. Removed. New IV placed in right forearm.
[2024-03-21] MEDS: busPIRone HCl 5 MG TABLET 15 MG PO ×2 (14:39→19:50)
[2024-03-21] MEDS: Metoclopramide HCl 5 MG TABLET PO ×2 (14:40→19:51)
[2024-03-21] MEDS: cefTRIAXone sodium 1 GM VIAL IVPUSH (14:40)
[2024-03-21] MEDS: methylPREDNISolone Sod Succ 125 MG/2 ML VIAL 60 MG IVPUSH (14:40)
[2024-03-21 15:05] VITALS: BP 136/80; PULSE 76; RESP 20; TEMP 37.2; O2SAT 96
[2024-03-21 16:27] LABS: Glucose, Whole Blood 164 mg/dL (60-115)
[2024-03-21] MEDS: Omeprazole 20 MG CAPSULE.DR PO (16:34)
[2024-03-21] MEDS: Insulin Lispro 100 UNIT/ML 3 ML VIAL SUBCUT ×2 (16:35→19:51)
[2024-03-21 19:22] VITALS: BP 152/77; PULSE 82; RESP 18; TEMP 36.4; O2SAT 96
[2024-03-21] MEDS: risperiDONE 0.5 MG TABLET PO (19:51)
[2024-03-21] MEDS: Atorvastatin Calcium 80 MG TABLET PO (19:51)
[2024-03-21] MEDS: Montelukast Sodium 10 MG TABLET PO (19:51)
[2024-03-21] MEDS: Loratadine 10 MG TABLET PO (19:51)
[2024-03-21] MEDS: Docusate Sodium 100 MG CAPSULE PO (19:51)
[2024-03-21] MEDS: Gabapentin 400 MG CAPSULE PO (19:51)
[2024-03-21 21:31] LABS: Glucose, Whole Blood 166 mg/dL (60-115)
[2024-03-21] MEDS: Enoxaparin Sodium 40 MG/0.4 ML SYRINGE SUBCUT (22:11)
[2024-03-21 22:19] LABS: Glucose, Whole Blood 199 mg/dL (60-115)
[2024-03-21 23:53] VITALS: BP 132/78; PULSE 75; RESP 16; TEMP 35.9; O2SAT 96
[2024-03-22] VITALS (7 sets, daily range): BP systolic 122–137; BP diastolic 67–88; PULSE 67–84; RESP 18; TEMP 36.3–36.7; O2SAT 93–97
[2024-03-22] MEDS: Levothyroxine Sodium 75 MCG TABLET PO (06:26)
[2024-03-22] MEDS: Omeprazole 20 MG CAPSULE.DR PO ×2 (06:29→15:37)
[2024-03-22 06:43] LABS: Hematocrit 38.2 % (37.0-47.0); Hemoglobin 13.3 g/dl (12.0-16.0); Mean Corpuscular HGB Conc 34.8 g/dl (31.0-35.0); Mean Corpuscular Hemoglobin 32.2 pg (27.0-33.0); Mean Corpuscular Volume 92.5 fL (80.0-98.0); Mean Platelet Volume 9.2 fL (9.4-12.3); Platelet Count 297 X10*3/uL (160-400); Red Blood Count 4.13 X10*6/uL (4.20-5.50); Red Cell Distribution Width 13.4 % (11.0-16.0); White Blood Count 7.4 X10*3/uL (4.8-10.8)
[2024-03-22 06:52] LABS: Anion Gap 12 (12-20); Blood Urea Nitrogen 22 mg/dL (9-16); Calcium 9.1 mg/dL (8.4-10.2); Carbon Dioxide 20 mmol/L (22-29); Chloride 112 mmol/L (96-108); Creatinine Clr Calc Pharmacy 79.6; Estimated Glomerular Filt Rate > 60; Glucose Random 151 mg/dL (60-115); Potassium 3.8 mmol/L (3.3-5.1); Sodium 140 mmol/L (135-145)
[2024-03-22 07:17] LABS: Glucose, Whole Blood 161 mg/dL (60-115)
[2024-03-22] MEDS: Fluticasone/Vilanterol 100/25 BLST.W.DEV 1 PUFF INHALE (08:27)
--- NOTE | 2024-03-22 09:17 | HO.PM.IMPN ---
Subjective Subjective Date of Service: 03/22/24 Interval History: erythema and pain improving Physical Exam Vital Signs: Vital Signs: Last Vital Signs Temp 97.4 F 03/22/24 07:21 Pulse 70 03/22/24 08:27 Resp 18 03/22/24 08:27 BP 137/84 03/22/24 07:21 Pulse Ox 96 03/22/24 07:21 O2 Del Method Room Air 03/22/24 07:21 BMI result Body Mass Index 36.8 Const: General: comfortable Nutritional Appearance: well nourished Orientation/consciousness: patient oriented x3 Resp: Effort & Inspection: normal respiratory effort, no audible wheezes, no cough and no respiratory distress GI: Other: Wide area of erythema with a central area of increased erythema and ulceration but no definite fluctuance noted to palpation. Site is tender and indurated Skin: Other: Abdomen as noted above Neuro: General: patient oriented x3 Extrem: General: No edema Objective Data Active Medications Acetaminophen (Acetaminophen 325 Mg Tablet) 650 mg PO Q6H PRN PRN Reason: Pain, Mild 1-3,fever,headache Amlodipine Besylate (Amlodipine Besylate 10 Mg Tablet) 10 mg PO DAILY [facility]; Protocol Atorvastatin Calcium (Atorvastatin Calcium 80 Mg Tablet) 80 mg PO BEDTIME [facility] Last Admin: 03/21/24 19:51 Dose: 80 mg Documented By: STEPAN Buspirone HCl (Buspirone Hcl 5 Mg Tablet) 15 mg PO TID [facility] Last Admin: 03/21/24 19:50 Dose: 15 mg Documented By: STEPAN Ceftriaxone Sodium (Ceftriaxone Sodium 1 Gm Vial) 1 gm IVPUSH Q24H [facility] Last Admin: 03/21/24 14:40 Dose: 1 gm Documented By: BETO Clonazepam (Clonazepam 0.5 Mg Tablet) 0.5 mg PO BEDTIME PRN PRN Reason: Sleep Clonazepam (Clonazepam 1 Mg Tablet) 1 mg PO DAILY [facility] Dextrose (Dextrose 50 % 25 Gm/50 Ml Syringe) 25 gm IVPUSH Q15M PRN; Protocol PRN Reason: per Hypoglycemia Standing Ord. Diphenhydramine HCl (Diphenhydramine Hcl 50 Mg/Ml Vial) 25 mg IVPUSH Q6H PRN PRN Reason: Prior to vancomycin Last Admin: 03/21/24 12:33 Dose: 25 mg Documented By: DEMETRIUS Docusate Sodium (Docusate Sodium 100 Mg Capsule) 100 mg PO BID [facility] Last Admin: 03/21/24 19:51 Dose: 100 mg Documented By: STEPAN Enalapril Maleate (Enalapril Maleate 10 Mg Tablet) 20 mg PO DAILY [facility]; Protocol Enoxaparin Sodium (Enoxaparin Sodium 40 Mg/0.4 Ml Syringe) 40 mg SUBCUT Q24H [facility] Last Admin: 03/21/24 22:11 Dose: 40 mg Documented By: STEPAN Fluticasone/Vilanterol (Fluticasone/Vilanterol / Blst.W.Dev) 1 puff INHALE RDAILY [facility] Last Admin: 03/22/24 08:27 Dose: 1 puff Documented By: LORRAINE Gabapentin (Gabapentin 400 Mg Capsule) 400 mg PO BEDTIME [facility] Last Admin: 03/21/24 19:51 Dose: 400 mg Documented By: STEPAN Glucose (Glucose Gel 15 Gm Gel..Gram.) 15 gm PO Q15M PRN; Protocol PRN Reason: per Hypoglycemia Standing Ord. Doxycycline Hyclate 100 mg/ (Sodium Chloride) 250 mls @ 166.67 mls/hr IV Q12H [facility] Insulin Human Lispro (Insulin Lispro 100 Unit/Ml 3 Ml Vial) 0 unit SUBCUT QIDACHS [facility]; Protocol Last Admin: 03/21/24 19:51 Dose: 2 unit Documented By: STEPAN Levothyroxine Sodium (Levothyroxine Sodium 75 Mcg Tablet) 75 mcg PO DAILY@0630 [facility] Last Admin: 03/22/24 06:26 Dose: 75 mcg Documented By: CICI Loratadine (Loratadine 10 Mg Tablet) 10 mg PO BEDTIME [facility] Last Admin: 03/21/24 19:51 Dose: 10 mg Documented By: STEPAN Magnesium Hydroxide (Milk Of Magnesia 30 Ml Oral.Susp) 30 ml PO DAILY PRN PRN Reason: Constipation Melatonin (Melatonin 3 Mg Tablet) 6 mg PO BEDTIME PRN PRN Reason: Insomnia Metoclopramide HCl (Metoclopramide Hcl 5 Mg Tablet) 5 mg PO TID [facility] Last Admin: 03/21/24 19:51 Dose: 5 mg Documented By: STEPAN Montelukast Sodium (Montelukast Sodium 10 Mg Tablet) 10 mg PO BEDTIME [facility] Last Admin: 03/21/24 19:51 Dose: 10 mg Documented By: STEPAN Omeprazole (Omeprazole 20 Mg Capsule.Dr) 20 mg PO BID@0630,1630 [facility] Last Admin: 03/22/24 06:29 Dose: 20 mg Documented By: CICI Ondansetron HCl (Ondansetron Hcl 4 Mg/2 Ml Vial) 4 mg IVPUSH Q8H PRN PRN Reason: Nausea and Vomiting Pyridoxine HCl (Pyridoxine Hcl (Vitamin B6) 50 Mg Tablet) 100 mg PO DAILY [facility] Risperidone (Risperidone 0.5 Mg Tablet) 0.5 mg PO BID [facility] Last Admin: 03/21/24 19:51 Dose: 0.5 mg Documented By: STEPAN Sodium Chloride (0.9 % Sodium Chloride Flush 3 Ml Syringe) 3 ml IVFLUSH QSHIFT [facility] Last Admin: 03/21/24 19:52 Dose: 3 ml Documented By: STEPAN Zolpidem Tartrate (Zolpidem Tartrate 5 Mg Tablet) 10 mg PO BEDTIME PRN PRN Reason: Insomnia Labs 03/22/24 06:25 03/22/24 06:25 Labs: Laboratory Results - last 24 hr 03/21/24 03/21/24 03/21/24 11:50 16:23 19:27 MCV MCH MCHC RDW Plt Count MPV Absolute Nucleated RBC Nucleated RBC % (auto) Anion Gap Estim Creat Clear Calc Estimated GFR POC Glucose 118 H 164 H 166 H Random Glucose Calcium 03/21/24 03/22/24 03/22/24 22:15 06:25 07:08 MCV 92.5 MCH 32.2 MCHC 34.8 RDW 13.4 Plt Count 297 MPV 9.2 L Absolute Nucleated RBC 0.000 Nucleated RBC % (auto) 0.0 Anion Gap 12 Estim Creat Clear Calc 79.6 Estimated GFR > 60 POC Glucose 199 H 161 H Random Glucose 151 H Calcium 9.1 Microbiology Microbiology Results: Microbiology 03/20/24 14:28 Blood Culture - Preliminary Blood - Venous No growth after 24 hours. 03/20/24 14:28 Blood Culture - Preliminary Blood - Venous No growth after 24 hours. Assessment and Plan (1) OKEEFE (nonalcoholic steatohepatitis): Status: Acute Plan 63F PMH diabetes, obesity, COPD, hyperlipidemia, peripheral neuropathy, hypothyroid, GERD, nonalcoholic steatohepatitis, hypothyroid presented with abdominal wall erythema and pain Abdominal wall cellulitis Had reaction to vancomycin, changed to doxycycline Continue ceftriaxone General surgery appreciated nothing to drain at this time Asthma/COPD overlap Stable Hypertension Continued amlodipine and enalapril Hyperlipidemia Continue statin Hypothyroid Continue levothyroxine Diabetes Basal bolus insulin Obesity Weight loss recommended DVT prophylaxis Lovenox Full Code reason for continued hospitalization: IV antibiotics for failure of p.o. Quality Stroke Does the patient have a stroke diagnosis?: No VTE Prior VTE?: No VTE Risk Level:: Medical - moderate - high VTE Device Contraindication: Treatment Not Indicated VTE Drug Contraindication: N/A - Med Ordered
[2024-03-22] MEDS: Insulin Lispro 100 UNIT/ML 3 ML VIAL SUBCUT (09:29)
[2024-03-22] MEDS: risperiDONE 0.5 MG TABLET PO ×2 (09:29→21:11)
[2024-03-22] MEDS: amLODIPine Besylate 10 MG TABLET PO (09:29)
[2024-03-22] MEDS: 0.9 % Sodium Chloride Flush 3 ML SYRINGE IVFLUSH ×3 (09:30→23:46)
[2024-03-22] MEDS: Enalapril Maleate 10 MG TABLET 20 MG PO (09:31)
[2024-03-22] MEDS: Metoclopramide HCl 5 MG TABLET PO ×3 (09:31→21:11)
[2024-03-22] MEDS: Pyridoxine HCl (Vitamin B6) 50 MG TABLET 100 MG PO (09:31)
[2024-03-22] MEDS: busPIRone HCl 5 MG TABLET 15 MG PO ×3 (09:31→21:11)
[2024-03-22] MEDS: Doxycycline Hyclate 100 MG in 0.9 % Sodium Chloride 250 ML 166.67 MG IV (09:32)
[2024-03-22] MEDS: clonazePAM 1 MG TABLET PO (09:33)
[2024-03-22] MEDS: Docusate Sodium 100 MG CAPSULE PO ×2 (09:33→21:12)
[2024-03-22 12:10] LABS: Glucose, Whole Blood 115 mg/dL (60-115)
[2024-03-22 15:36] LABS: Glucose, Whole Blood 136 mg/dL (60-115)
[2024-03-22] MEDS: cefTRIAXone sodium 1 GM VIAL IVPUSH (15:37)
--- NOTE | 2024-03-22 16:41 | MHC.CM.PN ---
CM MET WITH PT WITH A [employer] SHE LIVES WITH HER SON AND HAS DAILY LOAN SPECIALIST SERVICES (40 HRS PER WEEK) SHE HAS BOTH A CANE AND WALKER SHE COMPLETED A HCP TODAY NAMING HER SONS, SIRIA AND DENZEL, HER AGENTS PCP: ANTHONY LOZADA DELIVERED DCP: HOME, RESUME LOAN SPECIALIST SERVICES SON AND LOAN SPECIALIST TO TRANSPORT
[2024-03-22 20:59] LABS: Glucose, Whole Blood 154 mg/dL (60-115)
[2024-03-22] MEDS: Loratadine 10 MG TABLET PO (21:11)
[2024-03-22] MEDS: Gabapentin 400 MG CAPSULE PO (21:11)
[2024-03-22] MEDS: Calcium Carbonate 750 MG TAB.CHEW PO (21:11)
[2024-03-22] MEDS: Montelukast Sodium 10 MG TABLET PO (21:11)
[2024-03-22] MEDS: Enoxaparin Sodium 40 MG/0.4 ML SYRINGE SUBCUT (21:12)
[2024-03-22] MEDS: Atorvastatin Calcium 80 MG TABLET PO (21:12)
[2024-03-22] MEDS: Doxycycline Monohydrate 100 MG CAPSULE PO (23:44)
[2024-03-22 23:46] LABS: Glucose, Whole Blood 141 mg/dL (60-115)
[2024-03-23 03:39] VITALS: BP 128/79; PULSE 62; RESP 18; TEMP 37.1; O2SAT 93
[2024-03-23] MEDS: Omeprazole 20 MG CAPSULE.DR PO (05:51)
[2024-03-23] MEDS: Levothyroxine Sodium 75 MCG TABLET PO (05:51)
[2024-03-23 06:49] LABS: Hematocrit 38.8 % (37.0-47.0); Hemoglobin 13.1 g/dl (12.0-16.0); Mean Corpuscular HGB Conc 33.8 g/dl (31.0-35.0); Mean Corpuscular Hemoglobin 31.6 pg (27.0-33.0); Mean Corpuscular Volume 93.5 fL (80.0-98.0); Mean Platelet Volume 9.1 fL (9.4-12.3); Platelet Count 302 X10*3/uL (160-400); Red Blood Count 4.15 X10*6/uL (4.20-5.50); Red Cell Distribution Width 13.8 % (11.0-16.0); White Blood Count 7.2 X10*3/uL (4.8-10.8)
[2024-03-23 07:05] LABS: Glucose, Whole Blood 123 mg/dL (60-115)
[2024-03-23 07:18] LABS: Anion Gap 12 (12-20); Blood Urea Nitrogen 15 mg/dL (9-16); Calcium 8.8 mg/dL (8.4-10.2); Carbon Dioxide 25 mmol/L (22-29); Chloride 112 mmol/L (96-108); Creatinine Clr Calc Pharmacy 79.6; Estimated Glomerular Filt Rate > 60; Glucose Random 131 mg/dL (60-115); Potassium 3.3 mmol/L (3.3-5.1); Sodium 146 mmol/L (135-145)
[2024-03-23 07:34] VITALS: BP 127/80; PULSE 70; RESP 17; TEMP 36.4; O2SAT 93
[2024-03-23] MEDS: Fluticasone/Vilanterol 100/25 BLST.W.DEV 1 PUFF INHALE (07:57)
[2024-03-23 07:59] VITALS: PULSE 77; RESP 18; O2SAT 93
--- NOTE | 2024-03-23 08:07 | P.PNGS_ITS ---
Subjective Subjective Date of Service: 03/23/24 Interval history: Nuvia feels well this morning and denies any significant abdominal pain. Physical Exam 2 Vital Signs: Vital Signs: Last Vital Signs Temp 97.6 F 03/23/24 07:34 Pulse 77 03/23/24 07:59 Resp 18 03/23/24 07:59 BP 127/80 03/23/24 07:34 Pulse Ox 93 03/23/24 07:34 O2 Del Method Room Air 03/23/24 07:34 BMI result Body Mass Index 36.8 Const: General: comfortable Nutritional Appearance: well nourished O rientation/consciousness: patient oriented x3 Resp: Effort & Inspection: normal respiratory effort GI: Other: Abdominal cellulitis is much improved with minimal discharge noted from the central punctum. No fluctuance noted by palpation. Skin: Other: As noted above and abdomen Neuro: General: patient oriented x3 Objective Data Active Medications Acetaminophen (Acetaminophen 325 Mg Tablet) 650 mg PO Q6H PRN PRN Reason: Pain, Mild 1-3,fever,headache Amlodipine Besylate (Amlodipine Besylate 10 Mg Tablet) 10 mg PO DAILY [facility]; Protocol Last Admin: 03/22/24 09:29 Dose: 10 mg Documented By: ALTAGRACIA Atorvastatin Calcium (Atorvastatin Calcium 80 Mg Tablet) 80 mg PO BEDTIME [facility] Last Admin: 03/22/24 21:12 Dose: 80 mg Documented By: SANDER Buspirone HCl (Buspirone Hcl 5 Mg Tablet) 15 mg PO TID [facility] Last Admin: 03/22/24 21:11 Dose: 15 mg Documented By: SANDER Calcium Carbonate (Calcium Carbonate 750 Mg Tab.Chew) 750 mg PO Q6H PRN PRN Reason: Heartburn Last Admin: 03/22/24 21:11 Dose: 750 mg Documented By: SANDER Ceftriaxone Sodium (Ceftriaxone Sodium 1 Gm Vial) 1 gm IVPUSH Q24H [facility] Last Admin: 03/22/24 15:37 Dose: 1 gm Documented By: ALTAGRACIA Clonazepam (Clonazepam 0.5 Mg Tablet) 0.5 mg PO BEDTIME PRN PRN Reason: Sleep Clonazepam (Clonazepam 1 Mg Tablet) 1 mg PO DAILY [facility] Last Admin: 03/22/24 09:33 Dose: 1 mg Documented By: ALTAGRACIA Dextrose (Dextrose 50 % 25 Gm/50 Ml Syringe) 25 gm IVPUSH Q15M PRN; Protocol PRN Reason: per Hypoglycemia Standing Ord. Diphenhydramine HCl (Diphenhydramine Hcl 50 Mg/Ml Vial) 25 mg IVPUSH Q6H PRN PRN Reason: Prior to vancomycin Last Admin: 03/21/24 12:33 Dose: 25 mg Documented By: DEMETRIUS Docusate Sodium (Docusate Sodium 100 Mg Capsule) 100 mg PO BID [facility] Last Admin: 03/22/24 21:12 Dose: 100 mg Documented By: SANDER Doxycycline Monohydrate (Doxycycline Monohydrate 100 Mg Capsule) 100 mg PO BID [facility] Last Admin: 03/22/24 23:44 Dose: 100 mg Documented By: SANDER Enalapril Maleate (Enalapril Maleate 10 Mg Tablet) 20 mg PO DAILY [facility]; Protocol Last Admin: 03/22/24 09:31 Dose: 20 mg Documented By: ALTAGRACIA Enoxaparin Sodium (Enoxaparin Sodium 40 Mg/0.4 Ml Syringe) 40 mg SUBCUT Q24H [facility] Last Admin: 03/22/24 21:12 Dose: 40 mg Documented By: SANDER Fluticasone/Vilanterol (Fluticasone/Vilanterol 100/25 Blst.W.Dev) 1 puff INHALE RDAILY [facility] Last Admin: 03/23/24 07:57 Dose: 1 puff Documented By: PATIENCE Gabapentin (Gabapentin 400 Mg Capsule) 400 mg PO BEDTIME [facility] Last Admin: 03/22/24 21:11 Dose: 400 mg Documented By: SANDER Glucose (Glucose Gel 15 Gm Gel..Gram.) 15 gm PO Q15M PRN; Protocol PRN Reason: per Hypoglycemia Standing Ord. Insulin Human Lispro (Insulin Lispro 100 Unit/Ml 3 Ml Vial) 0 unit SUBCUT QIDACHS [facility]; Protocol Last Admin: 03/23/24 07:23 Dose: Not Given Documented By: MERCEDEZ Non-Admin Reason: No Insulin Coverage Levothyroxine Sodium (Levothyroxine Sodium 75 Mcg Tablet) 75 mcg PO DAILY@0630 [facility] Last Admin: 03/23/24 05:51 Dose: 75 mcg Documented By: MELITA Loratadine (Loratadine 10 Mg Tablet) 10 mg PO BEDTIME [facility] Last Admin: 03/22/24 21:11 Dose: 10 mg Documented By: SANDER Magnesium Hydroxide (Milk Of Magnesia 30 Ml Oral.Susp) 30 ml PO DAILY PRN PRN Reason: Constipation Melatonin (Melatonin 3 Mg Tablet) 6 mg PO BEDTIME PRN PRN Reason: Insomnia Metoclopramide HCl (Metoclopramide Hcl 5 Mg Tablet) 5 mg PO TID [facility] Last Admin: 03/22/24 21:11 Dose: 5 mg Documented By: SANDER Montelukast Sodium (Montelukast Sodium 10 Mg Tablet) 10 mg PO BEDTIME [facility] Last Admin: 03/22/24 21:11 Dose: 10 mg Documented By: SANDER Omeprazole (Omeprazole 20 Mg Capsule.Dr) 20 mg PO BID@0630,1630 [facility] Last Admin: 03/23/24 05:51 Dose: 20 mg Documented By: MELITA Ondansetron HCl (Ondansetron Hcl 4 Mg/2 Ml Vial) 4 mg IVPUSH Q8H PRN PRN Reason: Nausea and Vomiting Pyridoxine HCl (Pyridoxine Hcl (Vitamin B6) 50 Mg Tablet) 100 mg PO DAILY [facility] Last Admin: 03/22/24 09:31 Dose: 100 mg Documented By: ALTAGRACIA Risperidone (Risperidone 0.5 Mg Tablet) 0.5 mg PO BID [facility] Last Admin: 03/22/24 21:11 Dose: 0.5 mg Documented By: SANDER Sodium Chloride (0.9 % Sodium Chloride Flush 3 Ml Syringe) 3 ml IVFLUSH QSHIFT [facility] Last Admin: 03/22/24 23:46 Dose: 3 ml Documented By: SANDER Zolpidem Tartrate (Zolpidem Tartrate 5 Mg Tablet) 10 mg PO BEDTIME PRN PRN Reason: Insomnia Labs 03/23/24 06:12 03/23/24 06:12 Labs: Laboratory Results - last 24 hr 03/22/24 03/22/24 03/22/24 11:59 15:31 20:52 MCV MCH MCHC RDW Plt Count MPV Absolute Nucleated RBC Nucleated RBC % (auto) Anion Gap Estim Creat Clear Calc Estimated GFR POC Glucose 115 136 H 154 H Random Glucose Calcium 03/22/24 03/23/24 03/23/24 23:42 06:12 07:01 MCV 93.5 MCH 31.6 MCHC 33.8 RDW 13.8 Plt Count 302 MPV 9.1 L Absolute Nucleated RBC 0.000 Nucleated RBC % (auto) 0.0 Anion Gap 12 Estim Creat Clear Calc 79.6 Estimated GFR > 60 POC Glucose 141 H 123 H Random Glucose 131 H Calcium 8.8 Microbiology Microbiology Results: Microbiology 03/20/24 14:28 Blood Culture - Preliminary Blood - Venous No growth after 48 hours. 03/20/24 14:28 Blood Culture - Preliminary Blood - Venous No growth after 48 hours. Procedures Date of Service Date of Service: 03/23/24 Progress Note: A&P Assessment and plan (1) Abdominal wall cellulitis: Status: Acute Plan Patient is much improved with decreased cellulitis and no evidence of an undrained abscess. No surgical intervention recommended at this time. Time Spent With Patient Time: Total time managing care of this patient today ____ minutes. Quality Stroke Does the patient have a stroke diagnosis?: No VTE Prior VTE?: No VTE Risk Level:: Medical - moderate - high VTE Device Contraindication: Treatment Not Indicated VTE Drug Contraindication: N/A - Med Ordered
[2024-03-23] MEDS: Doxycycline Monohydrate 100 MG CAPSULE PO (08:14)
[2024-03-23] MEDS: 0.9 % Sodium Chloride Flush 3 ML SYRINGE IVFLUSH (08:14)
[2024-03-23] MEDS: risperiDONE 0.5 MG TABLET PO (08:14)
[2024-03-23] MEDS: Metoclopramide HCl 5 MG TABLET PO (08:14)
[2024-03-23] MEDS: busPIRone HCl 5 MG TABLET 15 MG PO (08:14)
[2024-03-23] MEDS: Acetaminophen 325 MG TABLET 650 MG PO (08:14)
[2024-03-23] MEDS: Enalapril Maleate 10 MG TABLET 20 MG PO (08:14)
[2024-03-23] MEDS: clonazePAM 1 MG TABLET PO (08:15)
[2024-03-23] MEDS: amLODIPine Besylate 10 MG TABLET PO (08:15)
[2024-03-23] MEDS: Pyridoxine HCl (Vitamin B6) 50 MG TABLET 100 MG PO (08:15)
[2024-03-23] MEDS: Docusate Sodium 100 MG CAPSULE PO (08:15)
--- NOTE | 2024-03-23 09:02 | PM.DS ---
DS: Providers Provider Date of Service: 03/23/24 Date of admission: 03/20/24 21:04 Date of discharge: 03/23/24 Primary care physician: Sariah Vickers NP Consults: 03/20/24 21:20 Consult to General Surgery Routine Consulting Provider: [facility] General Surgeons Reason for consultation: Cellulitis from carbuncle, saw Dr. Frank 4 days ago 03/22/24 12:50 Consult to Wound Care Routine Reason for consultation: Right lower abd wall cellulitis Has provider been notified: Yes DS: Diagnosis Discharge Diagnosis (1) Abdominal wall cellulitis: Status: Acute DS: Summary Hospital Course Hospital Course: from initial hpi: 63-year-old female with a PMH significant for?asthma/COPD overlap syndrome, insulin-dependent type 2 diabetes, HLD, peripheral neuropathy, hypothyroidism, and GERD who presents to the ED with?worsening abdominal redness. Pt has a longstanding hx of carbuncles and presented to general surgery office 4 days prior for evaluation of 1 on her right anterior abdominal wall and left buttock. Apparently has not needed I&D for carbuncles in the past. Was prescribed Bactrim double strength which she took with no relief. Instead, symptoms worsened with redness continuing to spread and abdomen became warm to the touch and painful. Subjective fever and chills at home. Noted carbuncle did open up and drain a small amount of mostly clear liquid 1-2 days ago. Denies fever, chills, nausea, vomiting. No chest pain/pressure, palpitations. Denies shortness or breath or difficulty breathing. Of note, pt developed adverse reaction with pruritus when being administered vancomycin in the ED. Was given Benadryl 50 mg IV to good effect and with resolution of symptoms. Pt reports pruritus only, no SOB or difficulty breathing. In the ED pt with 1 episode HR of 93, vitals otherwise stable and WNL. No fever. Labs were significant for ESR 46, CRP 3.90, AST 173, ALT 249, alk-phos 138. No leukocytosis. Stable H&H. No significant electrolyte abnormalities. Renal function WNL. CT?of abdomen and pelvis found abdominal wall cellulitis without abscess. Pt was treated in the ED with IVF, Protonix, ceftriaxone, vancomycin, and Benadryl. Pt will be admitted to the hospital for treatment and further evaluation of abdominal wall cellulitis secondary to carbuncle that failed outpatient therapy. hospital course: Patient was admitted for abdominal wall cellulitis. She was treated with vancomycin and ceftriaxone. She did have red man syndrome to vancomycin so was changed doxycycline. Was seen by General surgery who felt there was no drainable fluid. Erythema and pain significantly improved. Will be discharged home on 5 more days of doxycycline. For asthma/COPD overlap she remained stable. For hypertension was continued on amlodipine and enalapril. For hyperlipidemia was continued on statin. For hypothyroidism was continued on levothyroxine. For diabetes was continued on basal bolus insulin. For obesity weight loss recommended. Patient is feeling better will be discharged home. Time Attestation Discharge Coordination Time (in mins): 32 Quality: Safe Use of Opioids Does Pt have an Active Cancer Diagnosis on the Problem List?: No Quality: Stroke Does the patient have a stroke diagnosis?: No Physical Exam Vital Signs: Vital Signs: Last Vital Signs Temp 97.6 F 03/23/24 07:34 Pulse 77 03/23/24 07:59 Resp 18 03/23/24 07:59 BP 127/80 03/23/24 07:34 Pulse Ox 93 03/23/24 07:34 O2 Del Method Room Air 03/23/24 07:34 BMI result Body Mass Index 36.8 much improved erythema and induration to abdominal wall surround small carbunkle DS: Data Data Completed and Pending Labs on day of discharge: Laboratory Results - last 24 hr 03/22/24 03/22/24 03/22/24 11:59 15:31 20:52 WBC RBC Hgb Hct MCV MCH MCHC RDW Plt Count MPV Absolute Nucleated RBC Nucleated RBC % (auto) Sodium Potassium Chloride Carbon Dioxide Anion Gap BUN Creatinine Estim Creat Clear Calc Estimated GFR POC Glucose 115 136 H 154 H Random Glucose Calcium 03/22/24 03/23/24 03/23/24 23:42 06:12 07:01 WBC 7.2 RBC 4.15 L Hgb 13.1 Hct 38.8 MCV 93.5 MCH 31.6 MCHC 33.8 RDW 13.8 Plt Count 302 MPV 9.1 L Absolute Nucleated RBC 0.000 Nucleated RBC % (auto) 0.0 Sodium 146 H Potassium 3.3 Chloride 112 H Carbon Dioxide 25 Anion Gap 12 BUN 15 Creatinine 0.76 Estim Creat Clear Calc 79.6 Estimated GFR > 60 POC Glucose 141 H 123 H Random Glucose 131 H Calcium 8.8 Preliminary micro results at discharge 03/20/24 14:28 Blood Culture - Preliminary Blood - Venous No growth after 48 hours. 03/20/24 14:28 Blood Culture - Preliminary Blood - Venous No growth after 48 hours. Discharge Plan Discharge Anticipated Discharge Date/Time: 03/23/24 08:59 Patient Disposition: Home, Self-Care Discharge Diagnosis: cellulitis Referrals: Sariah Vickers, BEAVER TRAPPER [Primary Care Provider] - 1 Week Discharge Medications: New doxycycline hyclate 100 mg tablet 100 mg PO BID Qty: 10 0RF Continued (DME) blood-glucose meter [FreeStyle Flash System] Kit See Rx Instructions .Route Qty: 1 0RF Rx Instructions: As directed (DME) pen needle, diabetic [UltiCare Pen Needle] 32 gauge x 5/32 needle See Rx Instructions .ROUTE .COMPLEX Qty: 100 5RF Dose Instruction: USE FOUR TIMES DAILY Rx Instructions: USE FOUR TIMES DAILY fluticasone propion-salmeterol 250-50 mcg/dose blister with device 1 ea inhalation BID 30 Days Qty: 60 6RF gabapentin 400 mg capsule 400 mg PO BEDTIME Qty: 30 4RF levothyroxine 75 mcg tablet 75 mcg PO QAM Qty: 90 4RF omalizumab 150 mg recon soln 300 mg subcut Q2W 28 Days Qty: 4 11RF Rx Instructions: requires multiple injection sites; do not exceed 150 mg per injection site (DME) FreeStyle Jalil 2 [place] Misc See Rx Instructions .Route Qty: 1 0RF Rx Instructions: As directed [facility] 10 billion cell -200 mg capsule, sprinkle 1 cap PO DAILY Qty: 30 6RF albuterol sulfate [Ventolin HFA] 90 mcg/actuation HFA aerosol inhaler 2 puff inhalation Q4-6H PRN (Reason: for wheezing) Qty: 18 6RF docusate sodium [Stool Softener] 100 mg capsule 100 mg PO BID Qty: 60 6RF omeprazole 20 mg capsule,delayed release(DR/EC) 20 mg PO BID Qty: 60 6RF pyridoxine (vitamin B6) 100 mg tablet 100 mg PO DAILY Qty: 90 3RF Spiriva with HandiHaler 18 mcg capsule, w/inhalation device 1 cap inhalation DAILY Qty: 30 6RF Combivent Respimat 20-100 mcg/actuation mist 1 puff PO QID MDD 6 puffs per day Qty: 4 3RF (DME) FreeStyle Jalil 2 Sensor Kit See Rx Instructions .Route Qty: 2 11RF Rx Instructions: As directed change every 14 days (DME) FreeStyle Lite Strips Strip See Rx Instructions .ROUTE .COMPLEX Qty: 100 5RF Dose Instruction: TEST BLOOD SUGAR FOUR TIMES DAILY Rx Instructions: TEST BLOOD SUGAR FOUR TIMES DAILY (DME) lancets [TRUEplus Lancets] 33 gauge misc See Rx Instructions .ROUTE .COMPLEX Qty: 100 5RF Dose Instruction: TEST BLOOD SUGAR FOUR TIMES DAILY Rx Instructions: TEST BLOOD SUGAR FOUR TIMES DAILY Certavite-Antioxidant 18-400 mg-mcg Tablet 1 tab PO DAILY atorvastatin 80 mg tablet 80 mg PO BEDTIME cetirizine 10 mg tablet 10 mg PO QPM enalapril maleate 20 mg tablet 20 mg PO DAILY amlodipine 10 mg tablet 10 mg PO DAILY ipratropium-albuterol 0.5 mg-3 mg(2.5 mg base)/3 mL solution for nebulization 3 ml inhalation Q6H PRN (Reason: Shortness Of Breath Or Wheezing) clonazepam 1 mg tablet 0.5 mg PO BEDTIME PRN (Reason: Sleep) fluticasone propionate 50 mcg/actuation spray,suspension 2 spray intranasal QAM risperidone 0.5 mg tablet 0.5 mg PO BID Combivent Respimat 20-100 mcg/actuation mist 1 puff INHALATION BID MDD 6 puffs per day PRN (Reason: Shortness Of Breath Or Wheezing) Ozempic 0.25 mg or 0.5 mg (2 mg/3 mL) pen injector 0.5 mg subcut SA lidocaine 5 % adhesive patch,medicated 1 patch topical DAILY PRN (Reason: Pain) Rx Instructions: leave on most painful area for up to 12 hrs montelukast 10 mg tablet 10 mg PO BEDTIME clonazepam [Klonopin] 1 mg tablet 1 mg PO DAILY Rx Instructions: administer 30 minutes before bedtime (DME) Knee Support Brace Misc See Rx Instructions .ROUTE .MEDSUPPLY Qty: 2 0RF Rx Instructions: As directed zolpidem 10 mg tablet 10 mg PO BEDTIME PRN (Reason: Insomnia) potassium chloride 20 mEq tablet,ER particles/crystals 20 meq PO BID acetaminophen 325 mg tablet 650 mg PO Q6H PRN (Reason: pain) tramadol 50 mg tablet 50 mg PO Q12H PRN (Reason: Pain) metoclopramide HCl [Reglan] 5 mg tablet 5 mg PO TID Qty: 90 6RF Trulance 3 mg tablet 3 mg PO DAILY Qty: 30 6RF sennosides [senna] 8.6 mg tablet 17.2 mg PO BEDTIME Qty: 60 6RF insulin lispro [Humalog KwikPen Insulin] 100 unit/mL insulin pen 4 unit subcut TID PRN (Reason: Hyperglycemia) Rx Instructions: use as directed with meals buspirone 15 mg tablet 15 mg PO TID meclizine 25 mg tablet 25 mg PO TID PRN (Reason: Dizziness) Discontinued sulfamethoxazole-trimethoprim [Bactrim] 400-80 mg tablet 1 tab PO BID Qty: 30 0RF Discharge Orders: Discharge Order (Routine); Ordered 03/23/24 Ordered By: Meek Vasquez Diet: Advance to usual diet Activity on Discharge: As tolerated Stand Alone Forms: Patient Portal Discharge page Print Language: Citizen Of [place] Care Plan Goals: recovery Health Concerns: cellulitis Plan of Treatment: 5 more days of doxycycline Assessment: see above
--- NOTE | 2024-03-23 09:34 | MHC.CM.PN ---
Pt has been medically cleared for DC, she will go home via family transport, plan is self care.
== END 2024-03-23 11:18 | disposition home or self-care (01) | DRG 603 ==
LOC: HO.ED 20:47 → HO.EDOVER 21:19 → HO.IMC 03-21 10:38
PROVIDERS: Emergency Medicine; Physician Assistant; Student in an Organized Health Care Education/Training Program; Admitting Provider Student in an Organized Health Care Education/Training Program; Emergency Provider Emergency Medicine; PCP Nurse Practitioner Primary Care; Visit Provider Internal Medicine
DX: L03.311 Cellulitis of abdominal wall (principal); L02.231 Carbuncle of abdominal wall; E11.42 Type 2 diabetes mellitus with diabetic polyneuropathy; F39 Unspecified mood [affective] disorder; E78.5 Hyperlipidemia, unspecified; L29.9 Pruritus, unspecified; T36.8X5A Adverse effect of other systemic antibiotics, initial encounter; J44.9 Chronic obstructive pulmonary disease, unspecified; E03.9 Hypothyroidism, unspecified; Z79.51 Long term (current) use of inhaled steroids; Z79.890 Hormone replacement therapy; Z79.899 Other long term (current) drug therapy
CPT/HCPCS: 36415; 74177; 80048; 80053; 80076; 82947; 83605; 83690; 83735; 85025; 85027; 85652; 86140; 87040; 94640; 94664; 99285; J0696; J1200; J1650; J2919; J3370; Q9967

== ENCOUNTER → 2024-03-20 15:02 | Outpatient (BNV) | payer OTHER, SELFPAY | PROVIDERS: Emergency Provider Emergency Medicine; PCP Nurse Practitioner Primary Care; Visit Provider Radiology Diagnostic Radiology | DX: L03.311 Cellulitis of abdominal wall (principal); I71.43 Infrarenal abdominal aortic aneurysm, without rupture | CPT/HCPCS: 74177 ==

== ENCOUNTER → 2024-03-20 21:04 | Outpatient (BNV) | payer OTHER, SELFPAY | PROVIDERS: Admitting Provider Student in an Organized Health Care Education/Training Program; Emergency Provider Emergency Medicine; PCP Nurse Practitioner Primary Care; Visit Provider Student in an Organized Health Care Education/Training Program | DX: K75.81 Nonalcoholic steatohepatitis (NASH) (principal) | CPT/HCPCS: 99223; 99232 ==

== ENCOUNTER 2024-03-29 14:04 | Outpatient (AMB) | payer OTHER, SELFPAY ==
--- NOTE | 2024-03-29 14:06 | MHC.OFFVIS ---
Intake Visit Reasons: abscess x2 buttock, x1 LT labia mayora Intake Note: Patient here for 1wk #1. buttock X2 #2. Lt labia majora abscess check. Reports improvement with IV abx. 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 Required: No Accompanied by: Self / Same As Patient Allergies aspirin [Aspirin] Allergy (Mild, Verified 03/29/24 14:15) ITCHY THROAT azithromycin Allergy (Unknown, Verified 03/29/24 14:15) Unknown naproxen Allergy (Unknown, Verified 03/29/24 14:15) Unknown simvastatin Allergy (Unknown, Verified 03/29/24 14:15) Unknown Fish Containing Products Allergy (Verified 03/29/24 14:15) Swelling vancomycin Allergy (Verified 03/29/24 14:15) Rash onion [ONION] Adverse Reaction (Mild, Verified 03/29/24 14:15) RED FACE HPI Comments Details: Patient was sent for follow-up status post recent hospitalization for abdominal wall cellulitis secondary to abdominal wall carbuncle. She has had marked improvement/near total resolution of the cellulitis. She presents here for follow-up [facility] Medical History Trochanteric bursitis of right hip Patellofemoral arthritis of left knee Dry mouth Environmental allergies Type 2 diabetes mellitus with hyperglycemia Menopausal state Type 2 diabetes mellitus MOCK (dyspnea on exertion) Kidney stone on left side Leg pain Tear of medial meniscus of left knee Abnormal finding on ultrasound Abnormal ultrasound of kidney Bilateral renal cysts Severe persistent asthma Asthma Bilateral hand pain Bilateral knee pain Carpal tunnel syndrome of right wrist Cubital tunnel syndrome on right Renal calculi UTI (urinary tract infection) History of kidney stones COVID-19 COVID-19 COPD exacerbation Bronchitis Chest pain Acute asthma exacerbation Tubular adenoma of colon Vulvovaginitis Bronchitis Candidiasis of mouth and esophagus Yeast infection Papanicolaou smear for cervical cancer screening Preop pulmonary/respiratory exam Allergic rhinitis Anxiety and depression Fibromyalgia HTN (hypertension) PTSD (post-traumatic stress disorder) Vertigo Diabetes Spondylosis of cervical region without myelopathy or radiculopathy Low vitamin D level Non-toxic multinodular goiter Hypothyroidism DVT (deep venous thrombosis) Cocaine abuse Surgical History History of esophagogastroduodenoscopy (EGD) H/O colonoscopy with polypectomy History of selective injection of anesthetic agent around lumbar nerve root Hx of right breast biopsy History of hysterectomy History of lithotripsy Family History Father No problems noted. 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 Back/Spine/Pelvis Other: Patient also had carbuncle on her left buttock which is also healed. Assessment & Plan Assessment & Plan (1) Carbuncle of abdominal wall: Code(s): L02.231 - Carbuncle of abdominal wall Category: Surgical (2) Abdominal wall cellulitis: Code(s): L03.311 - Cellulitis of abdominal wall Category: Surgical Plan At present, no acute surgical interventions were required. Patient was been given local instructions including warm compresses to the area and will follow-up as directed or p.r.n.. All questions answered Coding Level of Care Code Est Pt Level 4 (29961) Diagnoses Carbuncle of abdominal wall L02.231 Abdominal wall cellulitis L03.311
== END 2024-03-29 14:18 | disposition home or self-care (01) ==
PROVIDERS: PCP Nurse Practitioner Primary Care; Visit Provider Surgery
DX: L02.231 Carbuncle of abdominal wall (principal); L03.311 Cellulitis of abdominal wall
CPT/HCPCS: 99214

== ENCOUNTER → 2024-03-29 14:04 | Outpatient (BNVA) | payer OTHER, SELFPAY | PROVIDERS: PCP Nurse Practitioner Primary Care; Visit Provider Surgery | DX: Z09 Encounter for follow-up examination after completed treatment for conditions other than malignant neoplasm (principal); L03.311 Cellulitis of abdominal wall; Z79.2 Long term (current) use of antibiotics | CPT/HCPCS: 99212 ==

== ENCOUNTER 2024-04-06 13:14 | Outpatient (AMB) | payer OTHER, SELFPAY ==
--- NOTE | 2024-04-06 13:20 | MHC.OFFVIS ---
Intake Visit Reasons: abscess x2 buttock, x1 LT labia mayora Intake Note: Patient here for 2wk follow up Cellulitis of abdominal wall. Reports site healed. Buttock abscess completely healed. Patient c/o: no concerns. Was told has umbilical hernia. 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 For follow-up for carbuncles of abdominal wall and buttock 2. Umbilical hernia. 1. She has complete resolution of the carbuncles. 2. She would like to have umbilical hernia repaired. [facility] Medical History Trochanteric bursitis of right hip Patellofemoral arthritis of left knee Dry mouth Environmental allergies Type 2 diabetes mellitus with hyperglycemia Menopausal state Type 2 diabetes mellitus MOCK (dyspnea on exertion) Kidney stone on left side Leg pain Tear of medial meniscus of left knee Abnormal finding on ultrasound Abnormal ultrasound of kidney Bilateral renal cysts Severe persistent asthma Asthma Bilateral hand pain Bilateral knee pain Carpal tunnel syndrome of right wrist Cubital tunnel syndrome on right Renal calculi UTI (urinary tract infection) History of kidney stones COVID-19 COVID-19 COPD exacerbation Bronchitis Chest pain Acute asthma exacerbation Tubular adenoma of colon Vulvovaginitis Bronchitis Candidiasis of mouth and esophagus Yeast infection Papanicolaou smear for cervical cancer screening Preop pulmonary/respiratory exam Allergic rhinitis Anxiety and depression Fibromyalgia HTN (hypertension) PTSD (post-traumatic stress disorder) Vertigo Diabetes Spondylosis of cervical region without myelopathy or radiculopathy Low vitamin D level Non-toxic multinodular goiter Hypothyroidism DVT (deep venous thrombosis) Cocaine abuse Surgical History History of esophagogastroduodenoscopy (EGD) H/O colonoscopy with polypectomy History of selective injection of anesthetic agent around lumbar nerve root Hx of right breast biopsy History of hysterectomy History of lithotripsy Family History Father No problems noted. 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 Right lower quadrant carbuncle was completely healed. Patient has a roughly 3 cm reducible umbilical hernia. Abdomen otherwise benign Back/Spine/Pelvis Other: Buttock carbuncle was also completely healed. Assessment & Plan Assessment & Plan (1) Umbilical hernia: Code(s): K42.9 - Umbilical hernia without obstruction or gangrene Category: Surgical (2) Carbuncle and furuncle of buttock: Code(s): L02.33 - Carbuncle of buttock Category: Surgical (3) Carbuncle of abdominal wall: Code(s): L02.231 - Carbuncle of abdominal wall Category: Surgical Plan Risks, benefits, alternatives of open umbilical hernia repair with mesh were reviewed with the patient and included but not limited to bleeding, infection, recurrence, numbness, pain, scarring, bowel injury and the patient wishes to proceed. All questions answered. Arrangements were made for this on a day which is convenient for her. Coding Level of Care Code Est Pt Level 5 (45759) Global (29176) Diagnoses Umbilical hernia K42.9 Carbuncle and furuncle of buttock L02.33 Carbuncle of abdominal wall L02.231
--- OUTSIDE RECORDS SUMMARY | 2024-04-06 14:08 | XMS_ITS | Encounter Summary ---
Author Organization [employer] Address [address] [place] [address] Care Team Providers Care Train Station Server Name Role Phone Sariah Vickers Primary Care Provider Reason for Visit * Reason Comments Med Refill Encounter Details Date Type Department Care Team ([facility] st Contact Info) Description 08/22/2023 Refill [facility] MEDICINE [address] [place] [address] Sariah Vickers ANP [address] [place] [address] Neck pain Social History Tobacco Use Types [...] Description 04/09/2024 10:00 AM EST Office Visit [facility] ADULT DENTAL [address] [place] [address] Nuvia Duarte [address] [place] [phone] 04/15/2024 1:30 PM EST Office Visit [address] [address] Sariah Vickers ANP [address] [place] [address] 04/23/2024 11:30 AM EST Clinical Support [address] [address] Azeb Hall, RN [address] [place] [address] 04/29/2024 11:30 AM EDT Medication Management [address] [address] Yuri Pierre, Dileep [address] [place] [phone] documented as of this encounter Goals Goal Patient Goal Type Associated Problems Recent Progress Patient-Stated? Author Blood Pressure < 140/90 Blood Pressure 130/91(2024 1:28 PM EST) Aida Ernst, PharmBear Record Your Blood Sugar As Directed General No Aida Ragalnd PharmD Hemoglobin A1c < 7 Result Component 6.6( 4 8:44 AM EST) No Aida Ragland PharmD documented as of this encounter Visit Diagnoses Diagnosis Neck pain Cervicalgia documented in this encounter Additional Health Concerns Assessment Noted Time PHQ-9 Depression Total Score: 2 06/23/19 24 2:10 PM EDT documented as of this encounter Care Teams Train Station Server Relationship Specialty Start Date End Date Sariah Vickers ANP [address] [place] [id number] PCP - General Family Medicine 09/23/19 documented as of this encounter
--- OUTSIDE RECORDS SUMMARY | 2024-04-06 14:08 | XMS_ITS | Encounter Summary ---
Author Organization [employer] Address [address] [facility] [address]t [place] [address] Care Team Providers Care Magazine Filler Name Role Phone Sariah Vickers Primary Care Provider [phone] Reason for Visit * Reason Comments Med Refill Encounter Details Date Type Department Care Team ([facility] Contact Info) Description 09/13/2022 Refill [facility] & PEDS [address] [place] [address] Sariah Vickers ANP [address] [place] [address] Severe persistent allergic asthma without complication Social [...] Upcoming Encounters Date Type Department Care Team ([facility] Contact Info) Description 04/09/2024 10:00 AM EST Office Visit [facility] ADULT DENTAL [address] [place] [phone] Brendan Duartearis [address] [place] [address] 04/15/2024 1:30 PM EST Office Visit [address] [address] Sariah Vickers ANP [address] [place] [phone] 04/23/2024 11:30 AM EST Clinical Support [address] [address] Azeb Hall, RN [address] [place] [address] 04/29/2024 11:30 AM EDT Medication Management [address] [address] Yuri Pierre, PharmD [address] [place] [phone] documented as of this encounter Visit Diagnoses Diagnosis Severe persistent allergic asthma without complication documented in this encounter Care Teams Magazine Filler Relationship Specialty Start Date End Date Sariah Vickers ANP [address] [place] [phone] PCP - General Family Medicine 09/23/19 documented as of this encounter
--- OUTSIDE RECORDS SUMMARY | 2024-04-06 14:08 | XMS_ITS | Encounter Summary ---
Author Organization [facility] Address [address] [place] [address] [address] [place] [address] Care Team Providers Care Inner Tube Tuber 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 Name Role Phone Alee Sariah PAGE Primary Care Provider [phone] Encounter Details Date Type Department Care Team (Latest Contact Info) Description 05/15/2018 Abstract [facility] CONVERSIONS Dental, Provider, DDS Social History Tobacco [...] Visit [facility] ADULT DENTAL [address] [place] [address] Nuvia Duarte [address] [place] [address] 04/15/2024 1:30 PM EST Office Visit [facility] MEDICINE [address] [place] [phone] Sariah Vickers ANP [address] [place] [address] 04/23/2024 11:30 AM EST Clinical Support [facility] MEDICINE [address] [place] [address] Azeb Hall RN [address] [place] [address] 04/29/2024 11:30 AM EDT Medication Management [facility] MEDICINE [address] [place] [address] Yuri Pierre, MikeD [address] [place] [address] documented as of this encounter Visit Diagnoses Not on filedocumented in this encounter Care Teams Inner Tube Tuber 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 Relationship Specialty Start Date End Date Sariah Vickers ANP [address] [place] [address] PCP - General Family Medicine 09/23/19 documented as of this encounter
--- OUTSIDE RECORDS SUMMARY | 2024-04-06 14:08 | XMS_ITS | Encounter Summary ---
Author Organization [facility] Address [address] [place] [address] [address] [place] [address] Care Team Providers Care Primary Care Nurse Name Role Phone Sariah Vickers Primary Care Provider [phone] Encounter Details Date Type Department Care Team (Latest Contact Info) Description 06/20/2021 Abstract [facility] CONVERSIONS Dental, Provider, DDS Social History [...] Visit [facility] ADULT DENTAL [address] [place] [address] Nuvia Duarte [address] [place] [address] 04/15/2024 1:30 PM EST Office Visit [facility] MEDICINE [address] [place] [phone] Sariah Vickers ANP [address] [place] [address] 04/23/2024 11:30 AM EST Clinical Support [facility] MEDICINE [address] [place] [phone] Azeb Hall RN [address] [place] [address] 04/29/2024 11:30 AM EDT Medication Management [facility] MEDICINE [address] [place] [address] Yuri Pierre, MikeD [address] [place] [address] documented as of this encounter Visit Diagnoses Not on filedocumented in this encounter Care Teams Primary Care Nurse Relationship Specialty Start Date End Date Sariah Vickers ANP [address] [place] [address] PCP - General Family Medicine 09/23/19 documented as of this encounter
--- OUTSIDE RECORDS SUMMARY | 2024-04-06 14:08 | XMS_ITS | Encounter Summary ---
Author Organization [employer] [facility] Address [address] [place] [address] 7t [place] [address] Care Team Providers Care Mascara Molder Name Role Phone Sariah Vickers Primary Care Provider Encounter Details Date Type Department Care Team (Latest Contact Info) Description 04/14/2020 Abstract [facility] CONVERSIONS Dental, Provider, DDS Social History Tobacco [...] 10:00 AM EST Office Visit [facility] ADULT DENTAL [address] [place] [address] Nuvia Duarte 230 [place] [address] 04/15/2024 1:30 PM EST Office Visit [facility] MEDICINE [address] [place] [address] Sariah Vickers ANP 230 [place] [address] 04/23/2024 11:30 AM EST Clinical Support [facility] MEDICINE [address] [place] [address] Azeb Hall RN 505 [place] [address] 04/29/2024 11:30 AM EDT Medication Management [facility] MEDICINE [address] [place] [address] Yuri Pierre, MikeD 230 [place] [address] documented as of this encounter Visit Diagnoses Not on filedocumented in this encounter Care Teams Mascara Molder Relationship Specialty Start Date End Date Sariah Vickers ANP 230 [place] [address] PCP - General Family Medicine 09/23/19 documented as of this encounter
--- OUTSIDE RECORDS SUMMARY | 2024-04-06 14:09 | XMS_ITS | Encounter Summary ---
Author Organization [employer] Address [address] 7t [place] [address] Care Team Providers Care Wire Stitcher Name Role Phone Sariah Vickers Primary Care Provider [phone] Reason for Visit * Reason Comments Med Refill Encounter Details Date Type Department Care Team ([facility] st Contact Info) Description 10/03/2023 Refill [facility] WALK-IN CENTER 230 [place] [address] Sariah Vickers ANP 230 [place] [address] Chronic SI joint pain Social History Tobacco [...] Description 04/09/2024 10:00 AM EST Office Visit [facility] ADULT DENTAL [address] [place] [address] Nuvia Duarte [address] [place] [address] 04/15/2024 1:30 PM EST Office Visit [facility] MEDICINE [address] [place] [address] Sairah Vickers ANP [address] [place] [address] 04/23/2024 11:30 AM EST Clinical Support [address] [address] Azeb Hall, RN [address] [place] [address] 04/29/2024 11:30 AM EDT Medication Management [address] [address] Yuri Pierre, Dileep [address] [place] [address] documented as of this encounter Goals Goal Patient Goal Type Associated Problems Recent Progress Patient-Stated? Author Blood Pressure < 140/90 Blood Pressure 130/91(2024 1:28 PM EST) No Aida Ragland, MikeD Record Your Blood Sugar As Directed General [...] documented as of this encounter Care Teams Wire Stitcher Relationship Specialty Start Date End Date Sariah Vickers ANP [address] [place] [address] PCP - General Family Medicine 09/23/19 documented as of this encounter
--- OUTSIDE RECORDS SUMMARY | 2024-04-06 14:09 | XMS_ITS | Encounter Summary ---
Author Organization [employer] Address [address] [facility] 7t [place] [address] Care Team Providers Care Property Preservation Specialist Name Role Phone Sariah Vickers Primary Care Provider [phone] Reason for Visit * Reason Comments Med Refill Encounter Details Date Type Department Care Team ([facility] st Contact Info) Description 12/17/2023 Refill [facility] MEDICINE 230 [place] [address] Sariah Vickers ANP 230 [place] [address] Chronic SI joint pain Social History Tobacco [...] 04/09/2024 10:00 AM EST Office Visit [facility] ADULT DENTAL [address] [place] [address] Nuvia Duarte [address] [place] [address] 04/15/2024 1:30 PM EST Office Visit [facility] MEDICINE [address] [place] [address] Sariah Vickers, KAYLEE [address] [place] [address] 04/23/2024 11:30 AM EST Clinical Support [address] [address] Azeb Hall, RN 505 [place] [address] 04/29/2024 11:30 AM EDT Medication Management [address] [address] Yuri Pierre, MikeD [address] [place] [address] documented as of this encounter Goals Goal [...] documented as of this encounter Care Teams Property Preservation Specialist Relationship Specialty Start Date End Date Sariah Vickers ANP [address] [place] [address] PCP - General Family Medicine 09/23/19 documented as of this encounter
--- OUTSIDE RECORDS SUMMARY | 2024-04-06 14:09 | XMS_ITS | Encounter Summary ---
Author Organization [employer] [facility] Address [address] [facility] 7t [place] [address] Care Team Providers Care Head Loader Name Role Phone Sariah Vickers Primary Care Provider Reason for Referral * Consultation (Urgent) - Authorized Specialty Diagnoses / Procedures Referred By Queenie gomez Referred To Contact Dermatology Diagnoses Abscess Sariah Vickers ANP 230 [place] [address] Phone: tel: fax: Referral ID Status Reason Start Date Expiration Date Visits Requested Visits Authorized [id number] Authorized Specialty Services Required 03/17/2024 03/17/2025 1 1 Reason for Visit * Reason Comments sick on site Encounter Details Date Type Department Care Team (Latest Contact Info) Description 03/17/2024 1:30 PM EST Office Visit [facility] MEDICINE 230 [place] [address] Sariah Vickers ANP 230 [place] [address] Type 2 diabetes mellitus with hyperlipidemia (CMS/HCC) [...] documented in this encounter Progress Notes * KAYLEE Lopez - 03/17/2024 1:30 PM EST Subjective Patient ID: Nuvia Ho is a 63 y.o. female who presents for sick on site. HPI Saw Dr. Frank for general surgery and he rx'd bactrim DS for 15d. She has f/u next week there to eval for need for I&D. Has a new lesion on her lower abdomen that Dr. Frank is aware of. She was getting a lot of nausea with the ozempic - she agreed to try mounjaro from endo but would like to resume CDTM w/ Yuri instead. Cambodian interpretation by Alessia Stearns, medical registrar. Lab Results Component Value Date HGBA1C 6.6 (H) 01/02/2024 Review of Systems Constitutional: Negative for chills and fever. HENT: Negative for sore throat. Respiratory: Negative for cough and shortness of breath. Cardiovascular: Negative for chest pain. Gastrointestinal: Negative for constipation and diarrhea. Endocrine: Negative for polydipsia, polyphagia and polyuria. Genitourinary: Negative for dysuria. Skin: abscesses Objective BP (!) 130/91 (BP Location: Left arm, Patient Position: Sitting, BP Cuff Size: Adult long) Pulse 101 Temp 97.7 ??F (36.5 ??C) (Temporal) Resp 16 Wt 202 lb 12.8 oz (92 kg) SpO2 95% BMI 34.81 kg/m?? Physical Exam Vitals reviewed. Constitutional: General: She is not in acute distress. Appearance: Normal appearance. She is not ill-appearing. HENT: Head: Normocephalic and atraumatic. Eyes: General: No scleral icterus. Extraocular Movements: Extraocular movements intact. Pupils: Pupils are equal, round, and reactive to light. Cardiovascular: Rate and Rhythm: Normal rate and regular rhythm. Pulmonary: Effort: Pulmonary effort is normal. No accessory muscle usage or respiratory distress. Skin: Comments: Localized area induration and erythema lower abdomen Neurological: Mental Status: She is alert and oriented to person, place, and time. Psychiatric: Mood and Affect: Mood normal. Behavior: Behavior normal. Assessment/Plan Diagnoses and all orders for this visit: Type 2 diabetes mellitus with hyperlipidemia (CMS/HCC) CDTM referral Once established w/ CDTM, pt knows she cannot follow w/ both endo and CDTM, would prefer CDTM - Continuous Glucose Sensor (FreeStyle Jalil 2 Sensor) misc; Apply 1 sensor every 14 days Abscess Cont bactrim and follow-up w/ general surgery as planned. Report fever, chills, worsening swelling,redness, pain. Refer to derm team for eval for why recurrent abscesses. - Referral to Dermatology; Future Derm referral and CDTM referral Needs refill for sensors documented in this encounter Plan of Treatment Upcoming Encounters Date Type Department Care Team (Late st Contact Info) Description 04/09/2024 10:00 AM EST Office Visit [facility] ADULT DENTAL [address] [place] [address] Felicia, Nuvia 230 [place] [address] 04/15/2024 1:30 PM EST Office Visit [facility] MEDICINE [address] [place] [address] Sariah Vickers ANP [address] [place] [address] 04/23/2024 11:30 AM EST Clinical Support [address] [address] Azeb Hall, RN 505 [place], [place] [phone] 04/29/2024 11:30 AM EDT Medication Management [address] [address] Yuri Pierre, Dileep [address] [place] [address] Scheduled Referrals Name Type Priority Associated Diagnoses [...] PharmD Hemoglobin A1c < 7 Result Component 6.6(11/15/202 4 8:44 AM EST) Aida Ernst, MikeD documented as of this encounter Visit Diagnoses Diagnosis Type 2 diabetes mellitus with hyperlipidemia (CMS/HCC)- Primary Abscess Cellulitis and abscess of unspecified site documented in this encounter Additional Health Concerns Assessment Noted Time PHQ-9 Depression Total Score: 12 024 2:58 PM EDT documented as of this encounter Care Teams Head Loader Relationship Specialty Start Date End Date Sariah Vickers ANP [address] [place] [address] PCP - General Family Medicine 09/23/19 documented as of this encounter
--- OUTSIDE RECORDS SUMMARY | 2024-04-06 14:09 | XMS_ITS | Encounter Summary ---
Author Organization [employer] Address 75 [facility] 7t [place] [address] Care Team Providers Care Grain Trader Name Role Phone Sariah Vickers Primary Care Provider [phone] Reason for Visit * Reason Comments Med Refill Encounter Details Date Type Department Care Team ([facility] st Contact Info) Description 11/14/2023 Refill [facility] MEDICINE 230 [place] [address] Sariah Vickers ANP 230 [place] [address] Neck pain Social History Tobacco Use Types [...] Visit [facility] ADULT DENTAL [address] [place] [address] Nuvia Duarte [address] [place] [address] 04/15/2024 1:30 PM EST Office Visit [address] [address] Sariah Vickers ANP [address] [place] [address] 04/23/2024 11:30 AM EST Clinical Support [address] [address] zAeb Hall, MARTIN 505 [place] [address] 04/29/2024 11:30 AM EDT Medication Management [address] [address] Yuri Pierre, Dileep [address] [place] [address] documented as of this encounter Goals Goal Patient Goal Type Associated Problems Recent Progress Patient-Stated? Author Blood Pressure < 140/90 Blood Pressure 130/91(2024 1:28 PM EST) Aida Ernst, PharmD Record Your Blood Sugar As Directed [...] documented as of this encounter Care Teams Grain Trader Relationship Specialty Start Date End Date Sariah Vickers ANP [address] [place] [address] PCP - General Family Medicine 09/23/19 documented as of this encounter
--- OUTSIDE RECORDS SUMMARY | 2024-04-06 14:09 | XMS_ITS | Encounter Summary ---
Author Organization [employer] Address 75 [facility] 7t [place] [address] Care Team Providers Care Dope Edger Name Role Phone Sariah Vickers Primary Care Provider [phone] Reason for Visit * Reason Onset Date Comments Med Refill 02/04/2024 Encounter Details Date Type Department Care Team ([facility] st Contact Info) Description 02/04/2024 Telephone [facility] MEDICINE 230 [place] [address] Sariah Vickers ANP 230 [place] [address] Med Refill Social History Tobacco Use Types [...] 50 MG tablet To be sent to: [facility] - [place], [place] - [address] [place] [address] documented in this encounter Plan of Treatment Upcoming Encounters Date Type Department Care Team ([facility] st Contact Info) Description 04/09/2024 10:00 AM EST Office Visit [facility] ADULT DENTAL [address] [place] [address] Nuvia Duarte 230 [place] [address] 04/15/2024 1:30 PM EST Office Visit [facility] MEDICINE [address] [place] [address] Sariah Vickers ANP 230 [place] [address] 04/23/2024 11:30 AM EST Clinical Support [address] [address] Azeb Hall RN 505 [place] [address] 04/29/2024 11:30 AM EDT Medication Management [address] [address] Yuri Pierre, MikeD 230 [place] [address] documented as of this encounter Goals Goal Patient Goal Type Associated Problems Recent Progress Patient-Stated? Author Blood Pressure < 140/90 Blood Pressure 130/91(2024 1:28 PM EST) No Aida Ragland PharmD Record Your Blood Sugar As Directed General No Phanis-Aida Medina PharmD Hemoglobin A1c < 7 Result Component 6.6( 8:44 AM EST) No Aida Ragland PharmD documented as of this encounter Visit Diagnoses Not on filedocumented in this encounter Additional Health Concerns Assessment Noted Time PHQ-9 Depression Total Score: 12 024 2:58 PM EDT documented as of this encounter Care Teams Dope Edger Relationship Specialty Start Date End Date Sariah Vickers ANP 230 [place] [address] PCP - General Family Medicine 09/23/19 documented as of this encounter
--- OUTSIDE RECORDS SUMMARY | 2024-04-06 14:09 | XMS_ITS | Encounter Summary ---
Author Organization [employer] Address 75 [facility] 7t [place] [address] Care Team Providers Care Ice Plant Operator Name Role Phone Sariah Vickers Primary Care Provider [phone] Reason for Visit * Reason Comments Med Refill Encounter Details Date Type Department Care Team ([facility] st Contact Info) Description 11/26/2023 Refill [facility] MEDICINE 230 [place] [address] Sariah Vickers ANP 230 [place] [address] Vertigo Social History Tobacco Use Types Packs/Day [...] Visit [facility] ADULT DENTAL [address] [place] [address] Nuvia Duarte [address] [place] [address] 04/15/2024 1:30 PM EST Office Visit [address] [address] Sariah Vicekrs ANP [address] [place] [address] 04/23/2024 11:30 AM EST Clinical Support [address] [address] Azeb Hall, MARTIN 505 [place] [address] 04/29/2024 11:30 AM EDT Medication Management [address] [address] Yuri Pierre, Dileep [address] [place] [address] documented as of this encounter Goals Goal [...] documented as of this encounter Care Teams Ice Plant Operator Relationship Specialty Start Date End Date Sariah Vickers ANP [address] [place] [address] PCP - General Family Medicine 09/23/19 documented as of this encounter
--- OUTSIDE RECORDS SUMMARY | 2024-04-06 14:09 | XMS_ITS | Encounter Summary ---
Author Organization [employer] [facility] Address 75 [facility] 7t [place] [address] Care Team Providers Care Adapted Physical Education Teacher Name Role Phone Sariah Vickers Primary Care Provider [phone] Encounter Details Date Type Department Care Team (Late Contact Info) Description 02/05/2022 Abstract [facility] MEDICINE 230 [place] [address] Sariah Vickers ANP 230 [place] [address] Social History Tobacco Use Types Packs/Day Years [...] Description 04/09/2024 10:00 AM EST Office Visit [facility] ADULT DENTAL 230 [place] [address] Nuvia Duarte [address] [place] [address] 04/15/2024 1:30 PM EST Office Visit [address] [address] Sariah Vickers ANP [address] [place] [address] 04/23/2024 11:30 AM EST Clinical Support [address] [address] Azeb Hall, RN 505 [place] [address] 04/29/2024 11:30 AM EDT Medication Management [address] [address] Yuri Pierre, PharmD [address] [place] [address] documented as of this encounter Visit Diagnoses Not on filedocumented in this encounter Care Teams Adapted Physical Education Teacher Relationship Specialty Start Date End Date Sariah Vickers ANP [address] [place] [address] [phone] PCP - General Family Medicine 09/23/19 documented as of this encounter
--- OUTSIDE RECORDS SUMMARY | 2024-04-06 14:09 | XMS_ITS | Encounter Summary ---
Author Organization [employer] Address 75 [facility] 7t [place] [address] Care Team Providers Care Stripper Color Name Role Phone Sariah Vickers Primary Care Provider [phone] Reason for Visit * Reason Comments Med Refill Encounter Details Date Type Department Care Team ([facility] st Contact Info) Description 01/04/2024 Refill [facility] MED & PEDS [address] [place] [address] Sariah Vickers ANP 230 [place] [address] Cervicalgia Social History Tobacco Use Types Packs/Day [...] 10:00 AM EST Office Visit [facility] ADULT DENTAL [address] [place] [address] Nuvia Duarte [address] [place] [address] 04/15/2024 1:30 PM EST Office Visit [facility] MEDICINE [address] [place] [address] Sariah Vickers, KAYLEE [address] [place] [address] 04/23/2024 11:30 AM EST Clinical Support [address] [address] Azeb Hall, RN 505 [place] [address] 04/29/2024 11:30 AM EDT Medication Management [address] [address] Yuri Pierre, MikeD [address] [place] [address] documented as of this encounter Goals Goal [...] documented as of this encounter Care Teams Stripper Color Relationship Specialty Start Date End Date Sariah Vickers ANP [address] [place] [address] PCP - General Family Medicine 09/23/19 documented as of this encounter
--- OUTSIDE RECORDS SUMMARY | 2024-04-06 14:09 | XMS_ITS | Encounter Summary ---
Author Organization [employer] Address 75 [facility] 7t [place] [address] Care Team Providers Care Director Of User Experience Name Role Phone Sariah Vickers Primary Care Provider [phone] Reason for Visit * Reason Onset Date Comments Med Refill 01/09/2024 Encounter Details Date Type Department Care Team ([facility] st Contact Info) Description 01/09/2024 Telephone [facility] MEDICINE 230 [place] [address] Sariah Vickers ANP 230 [place] [address] Med Refill Social History Tobacco Use Types [...] 04/09/2024 10:00 AM EST Office Visit [facility] ADULT DENTAL [address] [place] [address] Nuvia Duarte [address] [place] [address] 04/15/2024 1:30 PM EST Office Visit [facility] MEDICINE [address] [place] [address] Sariah Vickers ANP [address] [place] [address] 04/23/2024 11:30 AM EST Clinical Support [address] [address] Azeb Hall, RN 505 [place] [address] 04/29/2024 11:30 AM EDT Medication Management [address] [address] Yuri Pierre, Dileep [address] [place] [address] documented as of this encounter Goals Goal [...] of this encounter Care Teams Director Of User Experience Relationship Specialty Start Date End Date Sariah Vickers ANP [address] [place] [address] PCP - General Family Medicine 09/23/19 documented as of this encounter
--- OUTSIDE RECORDS SUMMARY | 2024-04-06 14:09 | XMS_ITS | Encounter Summary ---
Author Organization [employer] Address 75 [facility] 7t [place] [address] Care Team Providers Care Manager Intensive Care Name Role Phone Sariah Vickers Primary Care Provider [phone] Reason for Visit * Reason Comments Med Refill Encounter Details Date Type Department Care Team ([facility] st Contact Info) Description 10/24/2023 Refill [facility] MEDICINE 230 [place] [address] Sariah Vickers ANP 230 [place] [address] Neck pain Social History Tobacco Use Types [...] EST Office Visit [facility] ADULT DENTAL [address] [place] [address] Nuvia Duarte [address] [place] [address] 04/15/2024 1:30 PM EST Office Visit [address] [address] Sariah Vickers ANP [address] [place] [address] 04/23/2024 11:30 AM EST Clinical Support [address] [address] Azeb Hall, MARTIN 505 [place] [address] 04/29/2024 11:30 AM EDT Medication Management [address] [address] Yuri Pierre, Dileep [address] [place] [address] documented as of this encounter Goals Goal [...] as of this encounter Care Teams Manager Intensive Care Relationship Specialty Start Date End Date Sariah Vickers ANP [address] [place] [address] PCP - General Family Medicine 09/23/19 documented as of this encounter
--- OUTSIDE RECORDS SUMMARY | 2024-04-06 14:09 | XMS_ITS | Encounter Summary ---
Author Organization [employer] Address [address] [facility] [address] 7t [place] [address] Care Team Providers Care Spring Intern Name Role Phone Sariah Vickers Primary Care Provider [phone] Reason for Visit * Reason Comments Med Refill [facility] hasn't finished her Medbox due to missing refill for medication Gabapetin . Encounter Details Date Type Department Care Team ([facility] st Contact Info) Description 10/03/[address] [facility] 230 [place], [place] [phone] Sariah Vickers ANP 230 [place] [address] Chronic SI joint pain Social History Tobacco [...] 04/09/2024 10:00 AM EST Office Visit [facility] ADULT DENTAL [address] [place] [address] Nuvia Duarte 230 [place] [address] 04/15/2024 1:30 PM EST Office Visit [facility] MEDICINE [address] [place] [address] Sariah Vickers ANP 230 [place] [address] 04/23/2024 11:30 AM EST Clinical Support [facility] MED[facility] [address] [place] [address] Azeb Hall, MARTIN 505 [place] [address] 04/29/2024 11:30 AM EDT Medication Management [facility] MED[facility] 230 [place] [address] Yuri Pierre, MikeD 230 [place] [address] documented as of this encounter Goals Goal [...] documented as of this encounter Care Teams Spring Intern Relationship Specialty Start Date End Date Sariah Vickers ANP 230 [place] [address] PCP - General Family Medicine 09/23/19 documented as of this encounter
--- OUTSIDE RECORDS SUMMARY | 2024-04-06 14:09 | XMS_ITS | Encounter Summary ---
Author Organization [employer] Address [address] [facility] [employer] 7t [place] [address] Care Team Providers Care Tour Production Supervisor Name Role Phone Sariah Vickers Primary Care Provider [phone] Reason for Visit * Reason Comments Med Refill Encounter Details Date Type Department Care Team ([facility] st Contact Info) Description 03/09/2024 Refill [facility] [address] [place] [address] Sariah Vickers ANP 230 [place] [address] Neck pain Social History Tobacco Use Types [...] Description 04/09/2024 10:00 AM EST Office Visit [facility] ADULT DENTAL [address] [place] [address] Nuvia Duarte [address] [place] [address] 04/15/2024 1:30 PM EST Office Visit [facility] MEDICINE [address] [place] [address] Sariah Vickers, KAYLEE [address] [place] [address] 04/23/2024 11:30 AM EST Clinical Support [address] [address] Azeb Hall, RN 505 [place] [address] 04/29/2024 11:30 AM EDT Medication Management [address] [address] Yuri Pierre, MikeD [address] [place] [address] documented as of this encounter Goals Goal [...] documented as of this encounter Care Teams Tour Production Supervisor Relationship Specialty Start Date End Date Sariah Vickers ANP [address] [place] [address] PCP - General Family Medicine 09/23/19 documented as of this encounter
--- OUTSIDE RECORDS SUMMARY | 2024-04-06 14:09 | XMS_ITS | Encounter Summary ---
Author Organization [employer] [facility] Address [address] [place] [address] 7t [place] [address] Care Team Providers Care Threshing 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 Name Role Phone Sariah Vickers Primary Care Provider [phone] Reason for Visit * Reason Comments Med Refill Encounter Details Date Type Department Care Team (Late st Contact Info) Description 03/03/2022 Refill [facility] MEDICINE [address] [place] [address] Sariah Vickers ANP 230 [place] [address] Social History Tobacco Use Types Packs/Day Years [...] Description 04/09/2024 10:00 AM EST Office Visit [facility] ADULT DENTAL [address] [place] [address] FeliciaNuvia [address] [place] [address] 04/15/2024 1:30 PM EST Office Visit [address] [address] Sariah Vickers ANP [address] [place] [address] 04/23/2024 11:30 AM EST Clinical Support [address] [address] Azeb Hall RN 505 [place] [address] 04/29/2024 11:30 AM EDT Medication Management [address] [address] Yuri Pierre, MikeD [address] [place] [address] documented as of this encounter Visit Diagnoses Not on filedocumented in this encounter Care Teams Threshing 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 Relationship Specialty Start Date End Date Sariah Vickers ANP [address] [place] [address] PCP - General Family Medicine 09/23/19 documented as of this encounter
--- OUTSIDE RECORDS SUMMARY | 2024-04-06 14:09 | XMS_ITS | Encounter Summary ---
Author Organization [email or web address] Address [address] [facility] 7t [place] [address] Care Team Providers Care Wind Plant Manager Name Role Phone Anthony Ruiz Primary Care Provider [phone] Encounter Details Date Type Department Care Team [...] 10:00 AM EST Office Visit [facility] ADULT DENTAL [address] [place] [address] Felicia, Nuvia 230 [place] [address] 04/15/2024 1:30 PM EST Office Visit [address] [address] Anthony Ruiz ANP [address] [place] [address] 04/23/2024 11:30 AM EST Clinical Support [address] [address] Azeb Hall, RN 505 [place] [address] 04/29/2024 11:30 AM EDT Medication Management [address] [address] Yuri Pierre, PharmD [address] [place] [address] documented as of this encounter Goals Goal Patient Goal Type Associated Problems Recent Progress Patient-Stated? Author Blood Pressure < 140/90 Blood Pressure 130/91(2024 1:28 PM EST) No Aida Ragland, PharmD Record Your Blood Sugar As Directed General No Phanis-Veronica Medinasa, PharmD Hemoglobin A1c < 7 Result Component 6.6( 8:44 AM EST) No Phanis-Aida Medina, PharmD documented as of this encounter Procedures Procedure Name Priority Date/Time Associated Diagnosis Comments CT ABDOMEN PELVIS W CONTRAST Routine 03/20/2024 7:20 PM EST GLUCOSE, WHOLE BLOOD Routine 03/20/2024 5:01 PM EST GLUCOSE, WHOLE BLOOD Routine 03/20/2024 3:54 PM EST CBC WITH AUTO DIFFERENTIAL Routine 03/20/2024 2:28 PM EST SED RATE BY MODIFIED WESTERGREN Routine 03/20/2024 2:28 PM EST C-REACTIVE PROTEIN Routine 03/20/2024 2: 28 PM EST MAGNESIUM Routine 03/20/2024 2:28 PM EST LIPASE Routine 03/20/2024 2:28 PM EST LACTIC ACID Routine 03/20/2024 2:28 PM EST HEPATIC FUNCTION PANEL Routine 03/20/2024 2:28 PM EST BASIC METABOLIC PANEL Routine 03/20/2024 2:28 PM EST documented in this encounter Results * CT Abdomen Pelvis w/ Contrast (03/20/2024 7:20 PM EST) Anatomical Region Laterality Modality Body, Pelvis, Abdomen Computed T omography 03/20/2024 7:20 PM EST Narrative 03/20/2024 7:23 PM EST ? [facility] ?[address] ?[place] [address] ? CT Scan Report ? Signed ? Patient: Avinash Ho,Nuvia E ?MR ?? #: [id number] ? : 1960 ?Acct:[id number] ? Age/Sex: 63 / F ?ADM Date: 02//25 ? Loc: HO.ED ? Attending Dr: ? Ordering Physician: Maritza Mckeon ?? Date of Service: 03/20/24 ?? Procedure(s): CT abdomen pelvis w IV con ?? Accession Number(s): [id number] ? cc: Maritza Mckeon; ANTHONY RUIZ NP ? Report Number: ?? [id number]: Total DLP = ??844.00 mGy-cm ? CLINICAL HISTORY: abdominal wall cellulitis ?? abscess ? CT abdomen and pelvis with contrast ? Comparison: CT/ID/SR - CT ABDOMEN WO/W IV CON - 09/05/23 16:27 EDT ? Findings: ?? No consolidation or effusion. ? There is a 3 cm cyst within the superior pole of the left kidney. ?? Posterior atrophy of the right kidney. No hydronephrosis of either kidney. ?? No ureteral stones. ?? Spleen, adrenal glands, pancreas, gallbladder and liver are unremarkable. ?? No bowel obstruction, pneumoperitoneum, or pneumatosis. There are ?? scattered colonic diverticula, however no evidence of diverticulitis. ?? Skin thickening over the anterior right abdomen. No underlying fluid ?? collection or abscess. No subcutaneous gas. Incidentally noted lateral ?? right abdominal wall lipoma measuring 4.0 x 8.1 cm, unchanged. ?? Small fat containing right inguinal hernia. ?? Infrarenal abdominal aorta measures 2.7 x 2.9 cm. Aorta previously ?? measured 2.9 x 3.0, not significantly changed. There are mild wall ?? calcifications of the abdominal aorta. ? Pelvic contents unremarkable. Normal appendix. ?? The bones are intact. Mild degenerative changes of the lumbar spine. ?? Small fat containing umbilical hernia. ? IMPRESSION: ?? 1. Skin thickening over the anterior right abdominal wall, compatible with ?? cellulitis. No underlying abscess. ?? 2. 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 ? This document has been electronically signed by: [place] Brown MD on ?? 03/20/2024 19:20:13 ? Dictated By: ?[place] Brown MD ? Signed By: ?<Electronically signed by [place] Brown MD in OV> ? 03/20/241921 ? DD/ 19 ? TD/TT: 03/20/241919 ? Dental Aide: ? Procedure Note Vinicius Frederick - 03/20/[address] [address] [address] Scan Report Signed Patient: Nuvia Fay EMR #: [id number] : 1960cct:[id number] Age/Sex: 63 / FADM Date: 03/20/24 Loc: HO.ED Attending Dr: Ordering Physician: Maritza Mckeon Date of Service: 03/20/24 Procedure(s): CT abdomen pelvis w IV con Accession Number(s): [id number] cc: Maritza Mckeon; ANTHONY RUIZ NP Report Number: [id number]: Total DLP = 844.00 mGy-cm CLINICAL HISTORY: abdominal wall cellulitis abscess CT abdomen and pelvis with contrast Comparison: CT/ID/SR - CT ABDOMEN WO/W IV CON - 09/05/23 16:27 EDT Findings: No consolidation or effusion. There is a 3 cm cyst within the superior pole of the left kidney. Posterior atrophy of the right kidney. No hydronephrosis of either kidney. No ureteral stones. Spleen, adrenal glands, pancreas, gallbladder and liver are unremarkable. No bowel obstruction, pneumoperitoneum, or pneumatosis. There are scattered colonic diverticula, however no evidence of diverticulitis. Skin thickening over the anterior right abdomen. No underlying fluid collection or abscess. No subcutaneous gas. Incidentally noted lateral right abdominal wall lipoma measuring 4.0 x 8.1 cm, unchanged. Small fat containing right inguinal hernia. Infrarenal abdominal aorta measures 2.7 x 2.9 cm. Aorta previously measured 2.9 x 3.0, not significantly changed. There are mild wall calcifications of the abdominal aorta. Pelvic contents unremarkable. Normal appendix. The bones are intact. Mild degenerative changes of the lumbar spine. Small fat containing umbilical hernia. IMPRESSION: 1. Skin thickening over the anterior right abdominal wall, compatible with cellulitis. No underlying abscess. 2. Borderline aneurysmal infrarenal abdominal aorta measuring 2.7 x 2.9cm. This document has been electronically signed by: [place] Brown MD on 03/20/2024 19:20:13 Dictated By: [place] Brown MD Signed By: <Electronically signed by [place] Brown MD in OV> 03/20/241921 DD/ 19 TD/TT: 03/20/241919 Dental Aide: [facility] External Provider IMG CT PROCEDURES Edited Result - Final * (ABNORMAL) Glucose, Whole Blood (03/20/2024 5:01 PM EST) Glucose, Whole Blood 163(H) 60 - 115 mg/dL [facility] Comment:METER #: [id number] 03/20/2024 5:01 PM EST 03/20/2024 5:05 PM EST Generic External Data Provider LAB BLOOD ORDERAB LES Final Result Performing Organization Address [facility] Co de Phone Number [facility] [address] [place] [phone] * Glucose, Whole Blood (03/20/2024 3:54 PM EST) Glucose, Whole Blood 65 60 - 115 mg/dL [facility] Comment:METER #: [id number] 03/20/2024 3:54 PM EST 03/20/2024 3:58 PM EST Generic External Data Provider LAB BLOOD ORDERAB LES Final Result Performing Organization Address [facility] Co de Phone Number [facility] [address] [place] [phone] * (ABNORMAL) Sed Rate by Modified Earlineren (03/20/2024 2:28 PM EST) Erythrocyte Sedimentation Rate 46(H) 0 - 20 MM/HR [facility] Comment:Patients with polycy themia and many hemoglobin abnormalitiesmay have depressed sed rates whereas patients with anemiamay have elevated sed rates. 03/20/2024 2:28 PM EST 03/20/2024 2:58 PM EST Generic External Data Provider LAB BLOOD ORDERAB LES Final Result Performing Organization Address [facility]/ZIP Co de Phone Number [facility] [address] [place] [address] [phone] * Lipase (03/20/2024 2:28 PM EST) [facility] Lipase 16 8 - 78 U/L [facility] 03/20/2024 2:28 PM EST 03/20/2024 2:33 PM EST Generic External Data Provider LAB BLOOD ORDERAB LES Final Result Performing Organization Address [facility] Co de Phone Number [facility] [address] [place] [phone] * Lactic Acid (03/20/2024 2:28 PM EST) [facility] Lactic Acid 0.8 0.5 - 2.0 mmol/L [facility] 03/20/2024 2:28 PM EST 03/20/2024 2:33 PM EST Generic External Data Provider LAB BLOOD ORDERAB LES Final Result Performing Organization Address [facility] de Phone Number [facility] [address] [place] [phone] * (ABNORMAL) C-reactive Protein (03/20/2024 2:28 PM EST) [facility] C Reactive Protein 3.90(H) < or = 0.50 mg/dL [facility] 03/20/2024 2:28 PM EST 03/20/2024 2:33 PM EST Generic External Data Provider LAB BLOOD ORDERAB LES Final Result Performing Organization Address [facility] Co de Phone Number [facility] [address] [place] [phone] * Magnesium (03/20/2024 2:28 PM EST) Magnesium 2.2 1.6 - 2.6 mg/dL [facility] 03/20/2024 2:28 PM EST 03/20/2024 2:33 PM EST us Generic External Data Provider LAB BLOOD ORDERAB LES Final Result [facility] [address] [place], [place] [phone] * (ABNORMAL) Basic Metabolic Panel (03/20/2024 2:28 PM EST) Sodium 143 135 - 145 mmol/L [facility] Potassium 3.7 3.3 - 5.1 mmol/L [facility] Chloride 112(H) 96 - 108 mmol/L [facility] Carbon Dioxide 23 22 - 29 mmol/L [facility] Anion Gap 12 12 - 20 [facility] Urea Nitrogen (BUN) 13 9 - 16 mg/dL [facility] Creatinine, Serum 0.82 0.5 - 1.4 mg/dL [facility] Creatinine Clr Calc Pharmacy 73.7 [facility] Comment:Provided height and weight: 157.48 cm,91.172 kg.eGFR (calculated from the MDRD study equation) and eCrCl(calculated from the Cockcroft-Gault equation) are based ondifferent parameters and may not yield comparable results.If eCrCl result is absurd, please check patient'sheight/weight. Estimated Glomerular Filt Rate >60 [facility] Comment:Chronic Kidney Disea se: Estimated GFR < 60 mL/min/[id number] Kidney Disease: Estimated GFR < 15 mL/min/1.73m2 Glucose 112 60 - 115 mg/dL [facility] Calcium 8.7 8.4 - 10.2 mg/dL [facility] 03/20/2024 2:28 PM EST 03/20/2024 2:33 PM EST us Generic External Data Provider LAB BLOOD ORDERAB LES Final Result Performing Organization Address [facility]/ZIP Co de Phone Number [facility] [address] [place] [phone] * (ABNORMAL) Hepatic Function Panel (03/20/2024 2:28 PM EST) [facility] Bilirubin, Total 0.4 0.0 - 1.0 mg/dL [facility] Bilirubin, Direct 0.2 0.0 - 0.5 mg/dL [facility] Aspartate Amino Transferase 173(H) 5 - 31 U/L [facility] Alanine Aminotransferase 249(H) 0 - 31 U/L [facility] Total Protein 7.8 6.5 - 8.0 g/dL [facility] Albumin Level 3.8 3.5 - 5.0 g/dL [facility] Alkaline Phosphatase 138(H) 39 - 117 U/L [facility] 03/20/2024 2:28 PM EST 03/20/2024 2:33 PM EST us Generic External Data Provider LAB BLOOD ORDERAB LES Final Result Performing Organization Address [facility] Co de Phone Number [facility] [address] [place] [phone] * (ABNORMAL) CBC auto differential (03/20/2024 2:28 PM EST) [facility] White Blood Count 6.8 4.8 - 10.8 X10*3/uL [facility] Red Blood Count 4.08(L) 4.20 - 5.50 X10*6/uL [facility] Hemoglobin 13.0 12.0 - 16.0 g/dl [facility] Hematocrit 38.0 37.0 - 47.0 % [facility] Mean Corpuscular Volume 93.1 80.0 - 98.0 fL [facility] Mean Corpuscular Hemoglobin 31.9 27.0 - 33.0 pg [facility] Mean Corpuscular HGB Conc 34.2 31.0 - 35.0 g/dl [facility] Red Cell Distribution Width 14.1 11.0 - 16.0 % [facility] Platelet Count 280 160 - 400 X10*3/uL [facility] Mean Platelet Volume 9.2(L) 9.4 - 12.3 fL [facility] Neutrophils Percent Auto 53.1 45 - 73 % [facility] Imm Gran Pct Auto 0.1 0.0 - 0.4 % [facility] Lymphocytes Percent Auto 36.2 20 - 40 % [facility] Monocytes Percent Auto 7.9 2 - 11 % [facility] Eosinophils Percent Auto 2.4 0 - 4 % [facility] Basophils Percent Auto 0.3 0 - 2 % [facility] NRBC Pct Auto 0.0 0.0 - 0.2 /100WBC [facility] Neutrophils Absolute Auto 3.6 2.0 - 8.3 x10*3/uL [facility] Imm Gran Abs Auto 0.01 0.00 - 0.03 X10*3/uL [facility] Lymphocytes Absolute Auto 2.5 1.2 - 4.9 X10*3/uL [facility] Monocytes Absolute Auto 0.5 0.1 - 1.2 X10*3/uL [facility] Eosinophils Absolute Auto 0.2 0.0 - 0.4 X10*3/uL [facility] Basophils Absolute Auto 0.0 0.0 - 0.2 X10*3/uL [facility] NRBC Abs Auto 0.000 0.0 - 0.012 X10*3/uL [facility] 03/20/2024 2:28 PM EST 03/20/2024 2:33 PM EST us Generic External Data Provider LAB BLOOD ORDERAB LES Final Result [facility] [address] [place] [phone] documented in this encounter Visit Diagnoses Not on filedocumented in this encounter Additional Health Concerns Assessment Noted Time PHQ-9 Depression Total Score: 12 08/14/2 024 2:58 PM EDT documented as of this encounter Care Teams Wind Plant Manager Relationship Specialty Start Date End Date Anthony Ruiz ANP [address] [place] [address] PCP - General Family Medicine 09/23/19 documented as of this encounter
--- OUTSIDE RECORDS SUMMARY | 2024-04-06 14:09 | XMS_ITS | Encounter Summary ---
Author Organization [employer] [facility] Address [address] [place] [address] 7t [place] [address] Care Team Providers Care Supervisor Spring Up Name Role Phone Sariah Vickers Primary Care Provider Reason for Visit * Reason Comments Med Refill Encounter Details Date Type Department Care Team (Late Contact Info) Description 02/06/2022 Refill [facility] MEDICINE [address] [place] [address] Sariah Vickers ANP 230 [place] [address] Social History Tobacco Use Types Packs/Day Years [...] 04/09/2024 10:00 AM EST Office Visit [facility] ADULT DENTAL [address] [place] [address] Felicia Nuvia [address] [place] [address] 04/15/2024 1:30 PM EST Office Visit [address] [address] Sariah Vickers ANP [address] [place] [address] 04/23/2024 11:30 AM EST Clinical Support [address] [address] Azeb Hall, RN 505 [place], [place] [phone] 04/29/2024 11:30 AM EDT Medication Management [address] [address] Yuri Pierre, PharmD [address] [place] [phone] documented as of this encounter Visit Diagnoses Not on filedocumented in this encounter Care Teams Supervisor Spring Up Relationship Specialty Start Date End Date Sariah Vickers ANP [address] [place] [phone] PCP - General Family Medicine 09/23/19 documented as of this encounter
--- OUTSIDE RECORDS SUMMARY | 2024-04-06 14:09 | XMS_ITS | Encounter Summary ---
Author Organization [employer] Address [address] [facility] 7t [place] [address] Care Team Providers Care Police Patrol Lieutenant Name Role Phone Sariah Vickers Primary Care Provider [phone] Reason for Visit * Reason Comments Med Refill Encounter Details Date Type Department Care Team ([facility] st Contact Info) Description 11/24/2023 Refill [facility] MEDICINE 230 [place] [address] Sariah Vickers ANP [address] [place] [address] Vertigo Social History Tobacco Use Types Packs/Day [...] 10:00 AM EST Office Visit [facility] ADULT DENTAL [address] [place] [address] Nuvia Duarte [address] [place] [address] 04/15/2024 1:30 PM EST Office Visit [address] [address] Sariah Vickers ANP [address] [place] [address] 04/23/2024 11:30 AM EST Clinical Support [address] [address] Azeb Hall, MARTIN 505 [place] [address] 04/29/2024 11:30 AM EDT Medication Management [address] [address] Yuri Pierre, Dileep [address] [place] [address] documented as of this encounter Goals Goal [...] documented as of this encounter Care Teams Police Patrol Lieutenant Relationship Specialty Start Date End Date Sariah Vickers ANP [address] [place] [phone] PCP - General Family Medicine 09/23/19 documented as of this encounter
--- OUTSIDE RECORDS SUMMARY | 2024-04-06 14:09 | XMS_ITS | Encounter Summary ---
Author Organization [employer] Address [address] [facility] 7t [place] [address] Care Team Providers Care Stain Maker Name Role Phone Sariah Vickers Primary Care Provider Reason for Visit * Reason Onset Date Comments status check abscess 03/12/2024 Encounter Details Date Type Department Care Team ([facility] st Contact Info) Description 03/12/2024 Telephone [facility] MEDICINE 230 [place] [address] Sariah Vickers ANP 230 [place] [address] status check abscess Social History Tobacco Use [...] PM EST TC placed to patient (via [facility] official court interpreter) who was informed of providers message below. [...] I do not see any notes in [facility] for 03/09. Can you please [...] Lopez Sent: 03/03/2024 4:40 PM EST To: [facility] Green Team Nurses Please call general surgery on Friday to make sure that they received a referral for this patient for possible I&D thank you documented in this encounter Plan of Treatment Upcoming Encounters Date Type Department Care Team (Late st Contact Info) Description 04/09/2024 10:00 AM EST Office Visit [facility] ADULT DENTAL [address] [place] [address] Felicia Nuvia [address] [place] [address] 04/15/2024 1:30 PM EST Office Visit [address] [address] Sariah Vickers ANP [address] [place] [address] 04/23/2024 11:30 AM EST Clinical Support [address] [address] Azeb Hall, MARTIN [address] [place] [address] 04/29/2024 11:30 AM EDT Medication Management [address] [address] Yuri Pierre, MikeD [address] [place] [address] documented as of this encounter Goals Goal [...] Noted Time PHQ-9 Depression Total Score: 12 08/2 024 2:58 PM EDT documented as of this encounter Care Teams Stain Maker Relationship Specialty Start Date End Date Sariah Vickers ANP [address] [place] [address] PCP - General Family Medicine 09/23/19 documented as of this encounter
--- OUTSIDE RECORDS SUMMARY | 2024-04-06 14:09 | XMS_ITS | Encounter Summary ---
Author Organization [employer] Address [address] [place] [address] 7t [place] [address] Care Team Providers Care Fisher Trot Line Name Role Phone Sariah Vickers Primary Care Provider [phone] Reason for Visit * Reason Onset Date Comments Durable Medical Equipment 03/15/2022 Encounter Details Date Type Department Care Team (Late st Contact Info) Description 03/15/2022 Telephone [facility] MEDICINE [address] [place] [address] Sariah Vickers ANP [address] [place] [address] Durable Medical Equipment Social History Tobacco Use [...] Description 04/09/2024 10:00 AM EST Office Visit [facility] ADULT DENTAL [address] [place] [phone] Felicia, Nuvia [address] [place] [address] 04/15/2024 1:30 PM EST Office Visit [address] [address] Sariah Vickers ANP [address] [place] [address] 04/23/2024 11:30 AM EST Clinical Support [address] [address] Azeb Hall, RN [address] [place], [place] [phone] 04/29/2024 11:30 AM EDT Medication Management [address] [address] Yuri Pierre, PharmD [address] [place] [phone] documented as of this encounter Visit Diagnoses Not on filedocumented in this encounter Care Teams Fisher Trot Line Relationship Specialty Start Date End Date Sariah Vickers ANP [address] [place] [address] PCP - General Family Medicine 09/23/19 documented as of this encounter
--- OUTSIDE RECORDS SUMMARY | 2024-04-06 14:09 | XMS_ITS | Encounter Summary ---
Author Organization [facility] Address [address] [place] [address] 7t [place] [address] Care Team Providers Care Level Vial Setter Name Role Phone Sariah Vickers Primary Care Provider [phone] Encounter Details Date Type Department Care Team (Late st Contact Info) Description 01/09/2022 Abstract [facility] 230 [place] [address] Dental, Provider, DDS Social History Tobacco Use [...] Description 04/09/2024 10:00 AM EST Office Visit [facility] 230 [place] [address] Nuvia Duarte 230 [place] [address] 04/15/2024 1:30 PM EST Office Visit [facility] [address] [place] [address] Sariah Vickers ANP 230 [place] [address] 04/23/2024 11:30 AM EST Clinical Support [facility] [address] [place] [address] Azeb Hall RN [address] [place] [address] 04/29/2024 11:30 AM EDT Medication Management [facility] 230 [facility] [place] [address] Yuri Pierre, PharmD 230 [place] [address] documented as of this encounter Procedures Procedure [...] on filedocumented in this encounter Care Teams Level Vial Setter Relationship Specialty Start Date End Date Sariah Vickers ANP 230 [place] [address] PCP - General Family Medicine 09/23/19 documented as of this encounter
--- OUTSIDE RECORDS SUMMARY | 2024-04-06 14:09 | XMS_ITS | Encounter Summary ---
Author Organization [employer] Address [address] [facility] [address] 7t [place] [address] Care Team Providers Care Assembler Engine Name Role Phone Sariah Vickers Primary Care Provider [phone] Reason for Visit * Reason Comments Med Refill Encounter Details Date Type Department Care Team ([facility] st Contact Info) Description 10/03/2023 Refill [facility] 230 [place] [address] Sariah Vickers ANP 230 [place] [address] Chronic SI joint pain Social History Tobacco [...] EST Office Visit [facility] [address] [place] [address] Nuvia Duarte [address] [place] [address] 04/15/2024 1:30 PM EST Office Visit [facility] [address] [place] [address] Sariah Vickers ANP [address] [place] [address] 04/23/2024 11:30 AM EST Clinical Support [address] [address] Azeb Hall, RN [address] [place] [address] 04/29/2024 11:30 AM EDT Medication Management [address] [address] Yuri Pierre, Dileep [address] [place] [address] documented as of this encounter Goals Goal Patient Goal Type Associated Problems Recent Progress Patient-Stated? Author Blood Pressure < 140/90 Blood Pressure 130/91(2024 1:28 PM EST) No Aida Ragland, MikeD Record Your Blood Sugar As Directed General No Aiad Ragland PharmD Hemoglobin A1c < 7 Result Component 6.6( 4 8:44 AM EST) No Aida Ragland PharmD documented as of this encounter Visit Diagnoses Diagnosis Chronic SI joint pain Disorders of sacrum documented in this encounter Additional Health Concerns Assessment Noted Time PHQ-9 Depression Total Score: 12 024 2:58 PM EDT documented as of this encounter Care Teams Assembler Engine Relationship Specialty Start Date End Date Sariah Vickers ANP [address] [place] [address] PCP - General Family Medicine 09/23/19 documented as of this encounter
--- OUTSIDE RECORDS SUMMARY | 2024-04-06 14:09 | XMS_ITS | Encounter Summary ---
Author Organization [employer] Address [address] [facility] 7t [place] [address] Care Team Providers Care Automotive Finance Manager Name Role Phone Sariah Vickers Primary Care Provider [phone] Reason for Visit * Reason Onset Date Comments Med Refill 09/18/2023 Encounter Details Date Type Department Care Team (Late st Contact Info) Description 09/18/2023 Telephone [facility] 230 [place] [address] Sariah Vickers ANP 230 [place] [address] Med Refill Social History Tobacco Use Types [...] refill : Tramadol To be sent to: [facility] - [place], [place] - [address] [place] [address] documented in this encounter Plan of Treatment Upcoming Encounters Date Type Department Care Team ([facility] st Contact Info) Description 04/09/2024 10:00 AM EST Office Visit [facility] [address] [place] [address] Nuvia Duarte 230 [place] [address] 04/15/2024 1:30 PM EST Office Visit [facility] [address] [place] [address] Sariah Vickers ANP [address] [place] [address] 04/23/2024 11:30 AM EST Clinical Support [address] [address] Azeb Hall, MARTIN 505 [place] [address] 04/29/2024 11:30 AM EDT Medication Management [facility] [address] [place] [address] Yuri Pierre, MikeD 230 [place] [address] documented as of this encounter Goals Goal Patient Goal Type Associated Problems Recent Progress Patient-Stated? Author Blood Pressure < 140/90 Blood Pressure 130/91(2024 1:28 PM EST) No Adia Ragland PharmD Record Your Blood Sugar As Directed General No Phanis-Veronica Medinasa, PharmD Hemoglobin A1c < 7 Result Component 6.6( 8:44 AM EST) No Aida Ragland PharmD documented as of this encounter Visit Diagnoses Not on filedocumented in this encounter Additional Health Concerns Assessment Noted Time PHQ-9 Depression Total Score: 2 06/23/19 24 2:10 PM EDT documented as of this encounter Care Teams Automotive Finance Manager Relationship Specialty Start Date End Date Sariah Vickers ANP 230 [place] [address] PCP - General Family Medicine 09/23/19 documented as of this encounter
--- OUTSIDE RECORDS SUMMARY | 2024-04-06 14:09 | XMS_ITS | Encounter Summary ---
Author Organization [employer] Address 75 [facility] 7t [place] [address] Care Team Providers Care Gameplay Programmer Name Role Phone Sariah Vickers Primary Care Provider [phone] Encounter Details Date Type Department Care Team [...] Description 04/09/2024 10:00 AM EST Office Visit [facility] ADULT DENTAL [address] [place] [address] Felicia, Nuvia 230 [place] [address] 04/15/2024 1:30 PM EST Office Visit [facility] MEDICINE [address] [place] [address] Sariah Vickers ANP [address] [place] [address] 04/23/2024 11:30 AM EST Clinical Support [address] [address] Azeb Hall, RN 505 [place] [address] 04/29/2024 11:30 AM EDT Medication Management [address] [address] Yuri Pierre, MikeD [address] [place] [address] documented as of this encounter Goals Goal Patient Goal Type Associated Problems Recent Progress Patient-Stated? Author Blood Pressure < 140/90 Blood Pressure 130/91(2024 1:28 PM EST) No PhanisAida Cheng, PharmD Record Your Blood Sugar As Directed General No Piers-Gambl ciara, Aida, PharmD Hemoglobin A1c < 7 Result Component 6.6( 8:44 AM EST) No Phanis-GambAida buck, PharmD documented as of this encounter Visit Diagnoses Not on filedocumented in this encounter Additional Health Concerns Assessment Noted Time PHQ-9 Depression Total Score: 12 024 2:58 PM EDT documented as of this encounter Care Teams Gameplay Programmer Relationship Specialty Start Date End Date Sariah Vickers ANP 230 [place] [address] PCP - General Family Medicine 09/23/19 documented as of this encounter
--- OUTSIDE RECORDS SUMMARY | 2024-04-06 14:09 | XMS_ITS | Encounter Summary ---
Author Organization [employer] Address 75 [facility] 7t [place] [address] Care Team Providers Care 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 Hop Worker Name Role Phone Sariah Vickers Primary Care Provider [phone] Reason for Visit * Reason Comments Med Refill Encounter Details Date Type Department Care Team ([facility] st Contact Info) Description 01/06/2024 Refill [facility] [address] [place] [address] Sariah Vickers ANP 230 [place] [address] Cervicalgia Social History Tobacco Use Types Packs/Day [...] 10:00 AM EST Office Visit [facility] [address] [place] [address] Nuvia Duarte [address] [place] [address] 04/15/2024 1:30 PM EST Office Visit [facility] [address] [place] [address] Sariah Vickers, KAYLEE [address] [place] [address] 04/23/2024 11:30 AM EST Clinical Support [address] [address] Azeb Hall, RN 505 [place] [address] 04/29/2024 11:30 AM EDT Medication Management [address] [address] Yuri Pierre, MikeD [address] [place] [address] documented as of this encounter Goals Goal [...] documented as of this encounter Care Teams 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 Hop Worker Relationship Specialty Start Date End Date Sariah Vickers ANP [address] [place] [address] PCP - General Family Medicine 09/23/19 documented as of this encounter
--- OUTSIDE RECORDS SUMMARY | 2024-04-06 14:09 | XMS_ITS | Encounter Summary ---
Author Organization [employer] Address [address] [facility] 7t [place] [address] Care Team Providers Care Senior Commissions Analyst Name Role Phone Sariah Vickers Primary Care Provider [phone] Reason for Visit * Reason Comments Med Refill Encounter Details Date Type Department Care Team ([facility] st Contact Info) Description 03/13/2024 Refill [facility] 230 [place] [address] Sariah Vickers ANP 230 [place] [address] Severe persistent asthma without complication Social History [...] Description 04/09/2024 10:00 AM EST Office Visit [facility] [address] [place] [address] Nuvia Duarte [address] [place] [address] 04/15/2024 1:30 PM EST Office Visit [address] [address] Sariah Vickers ANP [address] [place] [address] 04/23/2024 11:30 AM EST Clinical Support [address] [address] Azeb Hall, RN 505 [place] [address] 04/29/2024 11:30 AM EDT Medication Management [address] [address] Yuri Pierre, Dileep [address] [place] [address] documented as of this encounter Goals Goal [...] documented as of this encounter Care Teams Senior Commissions Analyst Relationship Specialty Start Date End Date Sariah Vickers ANP [address] [place] [address] PCP - General Family Medicine 09/23/19 documented as of this encounter
--- OUTSIDE RECORDS SUMMARY | 2024-04-06 14:09 | XMS_ITS | Encounter Summary ---
Author Organization [employer] [facility] Address [address] [place] [address] 7t [place] [address] Care Team Providers Care Salesperson Recreational Vehicles Name Role Phone Sariah Vickers Primary Care Provider [phone] Reason for Visit * Reason Onset Date Comments Nurse Triage 11/01/2022 Encounter Details Date Type Department Care Team (Late st Contact Info) Description 11/01/2022 Telephone [facility] 230 [place] [address] Sariah Vickers ANP 230 [place] [address] Nurse Triage Social History Tobacco Use Types [...] 11/01/2022 3:51 PM EDT Triage call with [employer] Radiographer Cardiac Catheterization ID [id number] Pt reports blood sugars have been high [...] 10:00 AM EST Office Visit [facility] ADULT [facility] 230 [place] [address] Nuvia Duarte 230 [place] [address] 04/15/2024 1:30 PM EST Office Visit [facility] [address] [place] [address] Sariah Vickers ANP 230 [place] [address] 04/23/2024 11:30 AM EST Clinical Support [facility] [address] [place] [address] Azeb Hall RN 505 [place] [address] 04/29/2024 11:30 AM EDT Medication Management [facility] 230 [place] [address] Yuri Pierre, Dileep 230 [place] [address] documented as of this encounter Goals Goal [...] on filedocumented in this encounter Care Teams Salesperson Recreational Vehicles Relationship Specialty Start Date End Date Sariah Vickers ANP 230 [place] [address] PCP - General Family Medicine 09/23/19 documented as of this encounter
--- OUTSIDE RECORDS SUMMARY | 2024-04-06 14:09 | XMS_ITS | Encounter Summary ---
Author Organization [employer] [facility] Address [address] [facility] 7t [place] [address] Care Team Providers Care Certified Scrub Tech Name Role Phone Sariah Vickers Primary Care Provider [phone] Reason for Referral * Consultation (Routine) - Authorized Specialty Diagnoses / Procedures Referred By Queenie gomez Referred To Contact Pharmacy Diagnoses Essential hypertension Waldo Rojas MD 230 [place] [address] Phone: tel: fax: Referral ID Status Reason Start Date Expiration Date Visits Requested Visits Authorized [id number] Authorized Consult and Treat 03/18/2024 03/18/2025 6 6 Encounter Details Date Type Department Care Team (Late st Contact Info) Description 03/18/2024 Orders Only [facility] [address] [place] [phone] Waldo Rojas MD 230 [place], [place] [phone] Essential hypertension (Primary Dx) Social History Tobacco [...] 10:00 AM EST Office Visit [facility] [address] [place] [address] Nuvia Duarte 230 [place] [address] 04/15/2024 1:30 PM EST Office Visit [facility] [address] [place] [address] Sariah Vickers ANP 230 [place] [address] 04/23/2024 11:30 AM EST Clinical Support [facility] [address] [place] [address] Azeb Hall RN 505 [place] [address] 04/29/2024 11:30 AM EDT Medication Management [facility] 230 [place] [address] Yuri Pierre, MikeD 230 [place] [address] Scheduled Referrals Name Type Priority Associated Diagnoses Orde r Schedule Referral to Pharmacy CDTM Outpatient Referral Routine Essential hypertension Ordered: 03/18/2024 documented as of this encounter Goals Goal Patient Goal Type Associated Problems Recent Progress Patient-Stated? Author Blood Pressure < 140/90 Blood Pressure 130/91(2024 1:28 PM EST) No Phanis-GambAida buck, PharmD Record Your Blood Sugar As Directed [...] documented as of this encounter Care Teams Certified Scrub Tech Relationship Specialty Start Date End Date Sariah Vickers ANP 230 [place] [address] PCP - General Family Medicine 09/23/19 documented as of this encounter
--- OUTSIDE RECORDS SUMMARY | 2024-04-06 14:09 | XMS_ITS | Encounter Summary ---
Author Organization [employer] Address [address] [facility] 7t [place] [address] Care Team Providers Care Literacy Coordinator Name Role Phone Sariah Vickers Primary Care Provider [phone] Reason for Visit * Reason Comments Med Refill Encounter Details Date Type Department Care Team ([facility] st Contact Info) Description 10/17/2023 Refill [facility] 230 [place] [address] Sariah Vickers ANP 230 [place] [address] Neck pain Social History Tobacco Use Types [...] AM EST Office Visit [facility] ADULT DENTAL [address] [place] [address] Nuvia Duarte [address] [place] [address] 04/15/2024 1:30 PM EST Office Visit [address] [address] Sariah Vickers ANP [address] [place] [address] 04/23/2024 11:30 AM EST Clinical Support [address] [address] Azeb Hall, MARTIN 505 [place] [address] 04/29/2024 11:30 AM EDT Medication Management [address] [address] Yuri Pierre, Dileep [address] [place] [address] documented as of this encounter Goals Goal [...] documented as of this encounter Care Teams Literacy Coordinator Relationship Specialty Start Date End Date Sariah Vickers ANP [address] [place] [address] PCP - General Family Medicine 09/23/19 documented as of this encounter
--- OUTSIDE RECORDS SUMMARY | 2024-04-06 14:09 | XMS_ITS | Encounter Summary ---
Author Organization [employer] [facility] Address [address] [place] [address] 7t [place] [address] Care Team Providers Care Personal Injury Attorney Name Role Phone Sariah Vickers Primary Care Provider [phone] Reason for Visit * Reason Comments Med Refill Encounter Details Date Type Department Care Team (Late Contact Info) Description 03/26/2022 Refill [facility] 230 [place] [address] Sariah Vickers ANP 230 [place] [address] Social History Tobacco Use Types Packs/Day Years [...] 04/09/2024 10:00 AM EST Office Visit [facility]ULT [facility] 230 [place] [address] Felicia Nuvia [address] [place] [address] 04/15/2024 1:30 PM EST Office Visit [address] [address] Sariah Vickers ANP [address] [place] [address] 04/23/2024 11:30 AM EST Clinical Support [address] [address] Azeb Hall, RN 505 [place], [place] [phone] 04/29/2024 11:30 AM EDT Medication Management [address] [address] Yuri Pierre, PharmD [address] [place] [address] documented as of this encounter Visit Diagnoses Not on filedocumented in this encounter Care Teams Personal Injury Attorney Relationship Specialty Start Date End Date Sariah Vickers ANP [address] [place] [address] PCP - General Family Medicine 09/23/19 documented as of this encounter
--- OUTSIDE RECORDS SUMMARY | 2024-04-06 14:09 | XMS_ITS | Encounter Summary ---
Author Organization [employer] Address 75 [facility] 7t [place] [address] Care Team Providers Care Customer Service Coordinator Name Role Phone Sariah Vickers Primary Care Provider [phone] Encounter Details Date Type Department Care Team (Late st Contact Info) Description 03/17/2024 Telephone [facility] 230 [place] [address] Sariah Vickers ANP 230 [place] [address] Social History Tobacco Use Types Packs/Day Years [...] encounter Miscellaneous Notes * Telephone Encounter - Conjannie Rodrigo - 03/17/2024 11:11 AM EST A new referral is needed for this patient to enroll care in [facility] - Diabetes E11.69 clinic. Please send at your earliest convenience. documented in this encounter Plan of Treatment Upcoming Encounters Date Type Department Care Team (Late st Contact Info) Description 04/09/2024 10:00 AM EST Office Visit [facility] ADULT DENTAL [address] [place] [address] Nuvia Duarte [address] [place] [address] 04/15/2024 1:30 PM EST Office Visit [facility] [address] [place] [address] Sariah Vickers ANP [address] [place] [address] 04/23/2024 11:30 AM EST Clinical Support [address] [address] Azeb Hall, MARTIN 505 [place] [address] 04/29/2024 11:30 AM EDT Medication Management [address] [address] Yuri Pierre, PharmD [address] [place] [address] documented as of this encounter Goals Goal [...] as of this encounter Care Teams Customer Service Coordinator Relationship Specialty Start Date End Date Sariah Vickers ANP 230 [place] [address] PCP - General Family Medicine 09/23/19 documented as of this encounter
--- OUTSIDE RECORDS SUMMARY | 2024-04-06 14:09 | XMS_ITS | Encounter Summary ---
Author Organization [employer] Address 75 [facility] 7t [place] [address] Care Team Providers Care Computer Networking Instructor Name Role Phone Sariah Vickers Primary Care Provider [phone] Reason for Visit * Reason Onset Date Comments Paperwork/Forms 03/15/2024 Encounter Details Date Type Department Care Team ([facility] st Contact Info) Description 03/15/2024 Telephone [facility] 230 [place] [address] Candy Bains, RN 230 [place] [address] Paperwork/Forms Social History Tobacco Use Types Packs/Day [...] PM EST Faxed completed form back to [facility] as below * Telephone Encounter - Candy Bains RN - 03/15/2024 3:46 PM EST Received form from [facility] reporting drug interaction between tramadol and ambien. Form placed on PCP'sdesk. Pending completion. documented in this encounter Plan of Treatment Upcoming Encounters Date Type Department Care Team (Late st Contact Info) Description 04/09/2024 10:00 AM EST Office Visit [facility] ADULT DENTAL 230 [place] [address] Nuvia Duarte 230 [place] [address] 04/15/2024 1:30 PM EST Office Visit [facility] MED[facility]INE [address] [place] [address] Sariah Vickers ANP 230 [place] [address] 04/23/2024 11:30 AM EST Clinical Support [address] [address] Azeb Hall, MARTIN 505 [place] [address] 04/29/2024 11:30 AM EDT Medication Management [facility] 230 [place] [address] Yuri Pierre, PharmD 230 [place] [address] documented as of this encounter Goals Goal [...] as of this encounter Care Teams Computer Networking Instructor Relationship Specialty Start Date End Date Sariah Vickers ANP [address] [place] [address] PCP - General Family Medicine 09/23/19 documented as of this encounter
--- OUTSIDE RECORDS SUMMARY | 2024-04-06 14:09 | XMS_ITS | Encounter Summary ---
Author Organization [employer] Address [address] [facility] 7t [place] [address] Care Team Providers Care Operations Expert Name Role Phone Sariah Vickers Primary Care Provider [phone] Reason for Visit * Reason Comments Med Refill Encounter Details Date Type Department Care Team ([facility] st Contact Info) Description 01/06/2024 Refill [facility] [address] [place] [address] Sariah Vickers ANP 230 [place] [address] Cervicalgia Social History Tobacco Use Types Packs/Day [...] 04/09/2024 10:00 AM EST Office Visit [facility] ADULT DENTAL [address] [place] [address] Nuvia Duarte [address] [place] [address] 04/15/2024 1:30 PM EST Office Visit [facility] MEDICINE [address] [place] [address] Sariah Vickers, KAYLEE [address] [place] [address] 04/23/2024 11:30 AM EST Clinical Support [address] [address] Azeb Hall, RN 505 [place] [address] 04/29/2024 11:30 AM EDT Medication Management [address] [address] Yuri Pierre, MikeD [address] [place] [address] documented as of this encounter Goals Goal [...] documented as of this encounter Care Teams Operations Expert Relationship Specialty Start Date End Date Sariah Vickers ANP [address] [place] [address] PCP - General Family Medicine 09/23/19 documented as of this encounter
--- OUTSIDE RECORDS SUMMARY | 2024-04-06 14:10 | XMS_ITS | Clinical Summary ---
Author Organization [employer] Address [address] [facility] [address] [place] [address] Care Team Providers Care Certified Ophthalmic Surgical Assistant Name Role Phone Anthony Ruiz Primary Care Provider Allergies Active Allergy Reactions Criticality Noted Date Comments Aspirin Unknown 02/05/2010 Other reaction(s): face swelled Azithromycin Itching 04/07/2018 Cortisone 03/24/2019 Doxycycline Unknown 11/16/2021 Fish Allergy Angioedema 04/07/2018 Naproxen Unknown High 11/04/2019 Vancomycin Rash Low 03/20/2024 Vancomycin flushing syndrome at ED 03/2024 Medications * This document contains information received [...] the morning. Active Blood Glucose Monitoring Suppl (SinDelantal.Mx Lite) w/Device kit USE DIRECTED 023 Active Lactobacillus-In ulin ([facility] soup.me [facility]) capsule TAKE 1 CAPSULE BY MOUTH EVERY DAY Active TRUEplus Lancets 33G misc TEST BLOOD SUGAR THREE TIMES DAILY Active Xolair 150 MG/ML injection Reconstitute as directed and inject subcutaneously once weekly (administered in office) Active pyridoxine (Vitamin B-6) 100 MG tablet [...] neuropathy, with long-term current use of insulin ([facility]) USE 1 SPRAY (3MG) IN ONE NOSTRIL FOR A PATIENT WITH SEVERE HYPOGLYCEMIA WHO IS NOT RESPONSIVE AND UNABLE SELF-TREAT WITH GLUCOSE. AFTERWARDS TURN ON SIDE. MAY REPEAT IN 15MINUTES IF PATIENT DOES NOT RESPOND. 2 each 1 Active busPIRone (Buspar) 15 MG tablet Take 15 mg by mouth 3 times daily. Active insulin lispro (HumaLOG KWIKPEN) 100 UNIT/ML injectionIndicat ions:Type 2 diabetes mellitus with hyperlipidemia (CMS/HCC) ([facility]) Inject 2 Units under the skin with breakfast, with lunch, and with evening meal. As needed as directed by provider 6 mL Active TechLite Plus Pen Otho 32G X 4 MM miscIndications: Type 2 diabetes mellitus with hyperlipidemia (CMS/HCC) ([facility]) USE DIRECTED THREE TIMES DAILY 100 each Active atorvastatin (Lipitor) 80 MG tabletIndication s:High cholesterol TAKE 1 TABLET BY MOUTH AT BEDTIME 90 tablet Active potassium chloride CR (Klor-Con M20) 20 MEQ ER tablet TAKE 1 TABLET BY MOUTH TWICE DAILY IN THE MORNING AND IN THE EVENING WITH FOOD 180 tablet Active Diclofenac Sodium 1 % gelIndications:C hronic bilateral low back pain, unspecified whether sciatica present APPLY 2 GRAMS TOPICALLY TO AFFECTED AREA(S) ONCE DAILY NEEDED FOR PAIN 100 g Active glucose 4 g chewable tabletIndication s:Type 2 diabetes mellitus with hyperlipidemia (CMS/HCC) ([facility]) CHEW 4 TABLETS BY MOUTH NEEDED LOW FOR BLOOD SUGAR 50 tablet Active Ozempic, 0.25 or 0.5 MG/DOSE, 2 MG/3ML solution pen-injectorIndi cations:Type 2 diabetes mellitus with hyperlipidemia (CMS/HCC) ([facility]) INJECT 0.5 MG SUBCUTANEOUSLY EVERY 7 DAYS IN THE ABDOMEN, THIGHS, OR UPPER ARM, ROTATE INJECTION SITES. 3 mL Active montelukast (Singulair) 10 MG tablet TAKE 1 TABLET BY MOUTH EVERY EVENING 90 tablet Active amLODIPine (Norvasc) 10 MG tablet TAKE 1 TABLET BY MOUTH EVERY EVENING 90 tablet Active Alcohol Swabs (Alcohol Prep) 70 % pads USE DAILY DIRECTED 100 each 11 11/05/2 024 Active Multiple Vitamins-Mineral s (CertaVite/Antio xidants) tabletIndication s:Healthcare maintenance TAKE 1 TABLET BY MOUTH EVERY MORNING 90 tablet 3 024 Active ipratropium-albu terol (Duo-Neb) 0.5-2.5 mg/3 mL nebulizer solutionIndicati ons:Severe persistent asthma without complication INHALE 1 AMPULE USING A NEBULIZER EVERY 6 HOURS NEEDED 90 mL 5 025 Active fluticasone (Flonase) 50 MCG/ACT nasal [...] miscIndications: Type 2 diabetes mellitus with hyperlipidemia ([facility]) ([facility]) Apply 1 sensor every 14 days 2 each 025 Active traMADol (Ultram) 50 MG tabletIndication s:Cervicalgia TAKE 1 TABLET BY MOUTH EVERY TWELVE HOURS NEEDED FOR SEVERE PAIN 60 tablet 025 Active Continuous Glucose Credit Control Officer (FreeStyle Jalil 2 Lyons) deviceIndication s:Type 2 diabetes mellitus with hyperlipidemia (CMS/HCC) ([facility]) Use to check blood sugar at least every 8 hours 1 each 025 Active enalapril (Vasotec) 20 MG tabletIndication s:Essential hypertension TAKE 1 TABLET BY MOUTH EVERY MORNING 30 tablet 1 025 Active gabapentin (Neurontin) 400 MG capsuleIndicatio ns:Chronic SI joint pain TAKE 1 CAPSULE BY MOUTH AT BEDTIME 30 capsule 2 025 Active lidocaine (Lidoderm) 5 % patchIndications :Chronic bilateral low back pain, unspecified whether sciatica present APPLY 1 PATCH TOPICALLY TO SKIN, LEAVE ON FOR 12 HOURS AND OFF FOR 12 HOURS DIRECTED 30 patch 1 025 Active acetaminophen (Tylenol) 325 MG tabletIndication s:Neck pain TAKE 1 TO 2 TABLETS BY MOUTH EVERY 6 HOURS NEEDED 120 tablet 1 025 Active Fluticasone-Salm eterol 250-50 MCG/ACT aerosol powderIndication s:Severe persistent asthma without complication INHALE 1 PUFF BY MOUTH 12 HOURS APART 60 each 5 024 2024 Discontinued Continuous Glucose Credit Control Officer (FreeStyle Jalil 2 Lyons) device Use to check blood sugar at least every 8 hours 1 each 024 2024 Discontinued(R eorder (will not trigger notification to Pharmacy)) gabapentin (Neurontin) 400 MG capsuleIndicatio ns:Chronic SI joint pain TAKE 1 CAPSULE BY MOUTH AT BEDTIME 30 capsule 2 024 2024 Discontinued lidocaine (Lidoderm) 5 % patchIndications :Chronic bilateral low back pain, unspecified whether sciatica present APPLY 1 PATCH TOPICALLY TO SKIN, LEAVE ON FOR 12 HOURS AND OFF FOR 12 HOURS DIRECTED 30 patch 1 024 2024 Discontinued enalapril (Vasotec) 20 MG tabletIndication s:Essential hypertension TAKE 1 TABLET BY MOUTH EVERY MORNING 30 tablet 1 024 2024 Discontinued acetaminophen (Tylenol) 325 MG tabletIndication s:Neck pain TAKE 1 TO 2 TABLETS BY MOUTH EVERY 6 HOURS NEEDED 120 tablet 1 024 2024 Discontinued traMADol (Ultram) 50 MG tabletIndication s:Cervicalgia TAKE 1 TABLET BY MOUTH EVERY TWELVE HOURS NEEDED FOR SEVERE PAIN 60 tablet 025 2024 Discontinued Active Problems Problem Noted Date Diagnosed Date [...] her family. She will continue services with [facility] for OP therapy and psychiatry services. clinician will be available if needed during next medical appointment. PLAN: (check all that apply) Continue with current services (defined as services in the past 12 months) . Pt is engaged with OP therapy and psychiatry services with [facility] Excessive attrition of teeth, generalized 2023 Acute [...] inh at home q6h x 3d then prn Will be evaluated in the ED to [...] her family. She will continue services with [facility] for OP therapy and psychiatry services. clinician will be available if needed during next medical appointment. PLAN: (check all that apply) Continue with current services (defined as services in the past 12 months) . Pt is engaged with OP therapy and psychiatry services with [facility] @ [facility] Fibromyalgia 07/31/2022 Right foot pain 06/21/2022 Assessment [...] for possible plantar fasciitis -referred today to sanitary napkin machine tender x ongoing discomfort -may need orthopedic shoes [...] individual therapy and psychiatry with N at [facility]. Sees psych provider every two months and therapist bi-weekly. Pt will reach out to clinician as needed. Assessment & Plan (04/10/2023 11:08 AM EST): PLAN: (check all that apply) Behavioral Health Integration Plan Patient Self Plan Patient to reach out to [facility] team as needed Assessment & Plan (08/07/2022 [...] healthy manner PLAN: 1. Follow up with [facility]: Not recommended for follow-up 2. Patient goal [...] Hypoglycemia 09/27/2016 10/29/2022 Dizziness 01/19/2015 10/29/2022 Encounters Date Type Department Care Team Description 04/06/2024 Telephone [facility] [address] [place] [address] Anthony Ruiz, ANP Nurse Triage 04/06/2024 Refill [facility] [address] [place] [address] Anthony Ruzi ANP Severe persistent asthma without complication 04/02/2024 Refill [facility] [address] [place] [address] Anthony Ruiz ANP Neck pain 04/02/2024 Refill [facility] [address] [place] [address] Anthony Ruiz ANP Essential hypertension; Chronic SI joint pain; Chronic bilateral low back pain, unspecified whether sciatica present 04/01/2024 Refill [facility] [address] [place] [address] Anthony Ruiz ANP Type 2 diabetes mellitus with hyperlipidemia (CMS/HCC) (CMS/HCC) (Primary Dx) 03/29/2024 Telephone [facility] [address] [place] [address] [phone] Candy Bains RN ER Follow-up 03/29/2024 Orders Only [facility] [address] [place] [address] [phone] Anthony Ruiz ANP 03/28/2024 Refill [facility] [address] [place] [address] Anthony Ruiz ANP Cervicalgia 03/20/2024 Orders Only GENERIC EXTERNAL DATA DEPARTMENT Provider, Generic External Data 03/18/2024 Orders Only [facility] [address] [place] [address] 64174 Waldo Rojas MD Essential hypertension (Primary Dx) 03/17/2024 1:30 PM EST Office Visit [facility] [address] [place] [address] 12052 Anthony Ruiz ANP Type 2 diabetes mellitus with hyperlipidemia (CMS/HCC) (Primary Dx); Abscess 03/17/2024 Telephone [facility] [address] [place] [address] [phone] Anthony Ruiz ANP 03/17/2024 Travel 03/15/2024 Telephone [facility] [address] [place] [address] 23217 Candy Bains, RN Paperwork/Forms 03/13/2024 Refill [facility] [address] [place] [address] [phone] Anthony Ruiz ANP Severe persistent asthma without complication 03/12/2024 Telephone [facility] [address] [place] [address] 15892 Anthony Ruiz ANP status check abscess 03/09/2024 Refill [facility] [address] [place] [address] Anthony Ruiz ANP Neck pain 03/03/2024 3:30 PM EST Office Visit [facility] [address] [place] [address] 18949 Anthony Ruiz ANP Panniculitis affecting sacrum (Primary Dx); Abscess; Spondylosis of lumbar region without myelopathy or radiculopathy 03/03/2024 Travel 03/03/2024 Refill [facility] [address] [place] [address] 30934 Anthony Ruiz ANP 03/02/[address] [address] Day Pool [place] chart prep 03/01/2024 Telephone [facility] [address] [place] [phone] Anthony Ruiz ANP Durable Medical Equipment 03/01/2024 Refill [facility] [address] [place] [address] Anthony Ruiz ANP Cervicalgia 02/23/2024 2:00 PM EST Office Visit [facility] [address] [place] [address] Marianna Manzo MD Panniculitis affecting sacrum (Primary Dx) 02/23/2024 Telephone [facility] [address] [place] [address] 78031 Anthony Ruiz ANP Nurse Triage 02/20/2024 Refill [facility] [address] [place] [address] 16022 Anthony Ruiz ANP Severe persistent asthma without complication 02/19/2024 Orders Only GENERIC EXTERNAL DATA DEPARTMENT Provider, Generic External Data 02/16/[address] [address] Batsheva Baker MA March recall 02/16/2024 Telephone [facility] [address] [place] [address] 84858 Anthony Ruiz ANP Med Refill 02/15/2024 Refill [facility] [address] [place] [address] Anthony Ruiz ANP Healthcare maintenance; Neck pain 02/13/2024 11:00 AM EST Office Visit [facility] [address] [place] [address] 74180 Chava Presley MD Asthma-COPD overlap syndrome (CMS/HCC) (Primary Dx); COPD with asthma (CMS/HCC) 02/13/2024 Telephone [facility] [address] [place] [address] 81707 Anthony Ruiz ANP Med Refill 02/13/2024 Telephone [facility] [address] [place] [address]2447 Vicenta Constantino RN [facility] triage (Saw [facility] pulmonology 02/03/24:/Assessment:/ Asthma-COPD overlap syndrome/ chronic obstructive pulmonary disease / Plan: /Well controlled on current regimen of Xolair, Advair, Combivent, and albuterol MDI. 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 02/04/2024 Refill [facility] [address] [place] [address] Anthony Ruiz ANP Cervicalgia 02/04/2024 Telephone [facility] [address] [place] [address] Anthony Ruiz ANP Med Refill 02/04/2024 Travel 02/02/2024 Telephone [facility] [address] [place] [address] 66702 Anthony Ruiz ANP Nurse Triage 01/31/2024 Refill [facility] [address] [place] [address] Anthony Ruiz, KAYLEE Chronic bilateral low back pain, unspecified whether sciatica present 01/20/[address] [address] Anthony Ruiz ANP Change PCP; TelephoneCall 01/13/[address] [address] Batsheva Baker MA DME RX and from [facility] 01/13/[address] [address] Batsheva Baker [place] DME form [facility] 01/09/[address] [address] Anthony Ruiz ANP Med Refill 01/07/2024 Refill [facility] [address] [place] [address] Anthony Ruiz ANP Cervicalgia 01/06/[address] [address] Anthony Ruiz ANP Lab Results 01/06/[address] [address] Anthony Ruiz ANP Med Refill 01/06/2024 Refill [facility] [address] [place] [address] Anthony Ruiz ANP Cervicalgia 01/06/2024 Refill [facility] [address] [place] [address] Anthony Ruiz ANP Cervicalgia 01/05/[address] [address] Day Pool [place] script request (Pt was called in regard to ASTHMA machine..When spoke to pt she also mentioned a insentive spirometer anthony did do one is being worked on ,possible that insurance will not approve.She also was wondering about a walker we did already sent it to [facility] ..info is in chart.did try to call back no answer.) from Last 3 Months Immunizations Name Administration [...] the past 12 months, has t he [employer], gas, oil or water company threatened to [...] Description 04/09/2024 10:00 AM EST Office Visit [facility] [address] [place] [address] Nuvia Duarte [address] [place] [address] 04/15/2024 1:30 PM EST Office Visit [facility] [address] [place] [address] Anthony Ruiz, ANP [address] [place] [address] 04/23/2024 11:30 AM EST Clinical Support [address] [address] Azeb Hall, RN [address] [place] [address] 04/29/2024 11:30 AM EDT Medication Management [address] [address] Yuri Pierre, PharmD [address] [place], [place] Health Maintenance Due Date Last Done Comments [...] exists Depression Monitoring (PHQ-9) 04/02/2024 10/01/2023, 10/01/2023 Diabetes: Hemoglobin A1C 04/03/2024 024, 12/30/2023, 04/30/2023, Additional history exists Dental Prophylaxis 04/08/2024 10/06/2023, 0 09/18/2022, 01/18/2022 SDOH Screening 06/22/2024 06/23/2023 Dental X-Ray: Bitewings 09/12/2024 09/12/2023, 08/12 Depression Screening 09/30/2024 10/01/2023, 10/01/19 Diabetes: Urine Protein Screening 01/01/2025 01/02/2024, 01/22/2022, 02/12/2021, Additional history exists Lipid Panel 01/01/2025 01/02/2024, 08/18, 07/24/2021, Additional history exists Tobacco Screening 03/29/2025 03/29/2024 Cervical Cancer Screening 05/09/2025 HPV/Cotest 05/09/2025 05/09/2020, [...] 8:44 AM EST) No Aida Ragland PharmD Procedures Procedure Name Priority Date/Time Associated Diagnosis Comments CT ABDOMEN PELVIS W CONTRAST Routine 03/20/2024 7:20 PM EST GLUCOSE, WHOLE BLOOD Routine 03/20/2024 5:01 PM EST GLUCOSE, WHOLE BLOOD Routine 03/20/2024 3:54 PM EST SED RATE BY MODIFIED WESTERGREN Routine 03/20/2024 2:28 PM EST LIPASE Routine [...] DRUG SCREEN Routine 02/04/2024 9:31 AM EST longterm (current) use of opiate analgesic ALBUMIN, RANDOM URINE W/CREATININE Routine 01/02/2024 8:44 AM EST Type 2 diabetes mellitus with hyperlipidemia (CMS/HCC) HEMOGLOBIN A1C Routine 01/02/2024 8:44 AM EST LIPID PANEL, STANDARD Routine 01/02/2024 8:44 AM EST PROPHYLAXIS - ADULT Routine 10/06/2023 [...] Recently Relevant to Health Maintenance Results * CT Abdomen Pelvis w/ Contrast (03/20/2024 7:20 PM EST) Anatomical Region Laterality Modality Body, Pelvis, Abdomen Computed T omography 03/20/2024 7:20 PM EST Narrative 03/20/2024 7:23 PM EST ? [facility] ?[address] ?[place] [address] ? CT Scan Report ? Signed ? Patient: Nuvia Fay ?MR ?? #: [id number] ? : 1960 ?Acct:[id number] ? Age/Sex: 63 / F ?ADM Date: 02/01/25 ? Loc: HO.ED ? Attending Dr: ? Ordering Physician: Maritza Mckeon ?? Date of Service: 03/20/24 ?? Procedure(s): CT abdomen pelvis w IV con ?? Accession Number(s): [id number] ? cc: Maritza Mckeon; ANTHONY RUIZ NP ? Report Number: ?? [id number]: Total DLP = ??844.00 mGy-cm ? CLINICAL HISTORY: abdominal wall cellulitis ?? abscess ? CT abdomen and pelvis with contrast ? Comparison: CT/UT/SR - CT ABDOMEN WO/W IV CON - [...] ? DD/ 19 ? TD/TT: 03/20/241919 ? Visual Coordinator: ? Procedure Note Otoniel, Vinicius - 03/20/2024 [address] [place] [address] CT Scan Report Signed Patient: Nuvia Fay EMR #: [id number] : 1Acct:[id number] Age/Sex: 63 / FADM Date: 03/20/24 Loc: HO.ED Attending Dr: Ordering Physician: Maritza Mckeon Date of Service: 03/20/24 Procedure(s): CT abdomen pelvis w IV con Accession Number(s): [id number] cc: Maritza Mckeon; ANTHONY RUIZ NP Report Number: [id number]: Total DLP = 844.00 mGy-cm CLINICAL HISTORY: abdominal wall cellulitis abscess CT abdomen and pelvis with contrast Comparison: CT/UT/SR - CT ABDOMEN WO/W IV CON - [...] in OV> 03/20/241921 DD/ 19 TD/TT: 03/20/241919 Visual Coordinator: us [facility] External Provider IMG CT PROCEDURES Edited Result - Final * (ABNORMAL) Glucose, Whole Blood (03/20/2024 5:01 PM EST) Only the most recent of2 resultswithin the time period is included. Pathologist [facility] Glucose, Whole Blood 163(H) 60 - 115 mg/dL [facility] Comment:METER #: [id number] 03/20/2024 5:01 PM EST 03/20/2024 5:05 PM EST Generic External Data Provider LAB BLOOD ORDERAB LES Final Result [facility] [address] [place] [phone] * (ABNORMAL) CBC auto differential (03/20/2024 2:28 PM EST) [facility] White Blood Count 6.8 4.8 - 10.8 X10*3/uL [facility] Red Blood Count 4.08(L) 4.20 - 5.50 X10*6/uL [facility] Hemoglobin 13.0 12.0 - 16.0 g/dl [facility] Hematocrit 38.0 37.0 - 47.0 % [facility] Mean Corpuscular Volume 93.1 80.0 - 98.0 fL [facility] Mean Corpuscular Hemoglobin 31.9 27.0 - 33.0 pg [facility] Mean Corpuscular HGB Conc 34.2 31.0 - 35.0 g/dl [facility] Red Cell Distribution Width 14.1 11.0 - 16.0 % [facility] Platelet Count 280 160 - 400 X10*3/uL [facility] Mean Platelet Volume 9.2(L) 9.4 - 12.3 fL [facility] Neutrophils Percent Auto 53.1 45 - 73 % [facility] Imm Gran Pct Auto 0.1 0.0 - 0.4 % [facility] Lymphocytes Percent Auto 36.2 20 - 40 % [facility] Monocytes Percent Auto 7.9 2 - 11 % [facility] Eosinophils Percent Auto 2.4 0 - 4 % [facility] Basophils Percent Auto 0.3 0 - 2 % [facility] NRBC Pct Auto 0.0 0.0 - 0.2 /100WBC [facility] Neutrophils Absolute Auto 3.6 2.0 - 8.3 x10*3/uL [facility] Imm Gran Abs Auto 0.01 0.00 - 0.03 X10*3/uL [facility] Lymphocytes Absolute Auto 2.5 1.2 - 4.9 X10*3/uL [facility] Monocytes Absolute Auto 0.5 0.1 - 1.2 X10*3/uL [facility] Eosinophils Absolute Auto 0.2 0.0 - 0.4 X10*3/uL [facility] Basophils Absolute Auto 0.0 0.0 - 0.2 X10*3/uL [facility] NRBC Abs Auto 0.000 0.0 - 0.012 X10*3/uL [facility] 03/20/2024 2:28 PM EST 03/20/2024 2:33 PM EST us Generic External Data Provider LAB BLOOD ORDERAB LES Final Result [facility] [address] [place] [address] [phone] * (ABNORMAL) Sed Rate by Modified Jeffrey (03/20/2024 2:28 PM EST) Erythrocyte Sedimentation Rate 46(H) 0 - 20 MM/HR [facility] Comment:Patients with polycy themia and many hemoglobin abnormalitiesmay have depressed sed rates whereas patients with anemiamay have elevated sed rates. 03/20/2024 2:28 PM EST 03/20/2024 2:58 PM EST us Generic External Data Provider LAB BLOOD ORDERAB LES Final Result Performing Organization Address [facility] Co de Phone Number [facility] [address] [place] [phone] * (ABNORMAL) C-reactive Protein (03/20/2024 2:28 PM EST) C Reactive Protein 3.90(H) < or = 0.50 mg/dL [facility] 03/20/2024 2:28 PM EST 03/20/2024 2:33 PM EST Generic External Data Provider LAB BLOOD ORDERAB LES Final Result Performing Organization Address [facility] Phone Number [facility] [address] [place] [address] [phone] * Magnesium (03/20/2024 2:28 PM EST) Magnesium 2.2 1.6 - 2.6 mg/dL [facility] 03/20/2024 2:28 PM EST 03/20/2024 2:33 PM EST Generic External Data Provider LAB BLOOD ORDERAB LES Final Result Performing Organization Address [facility] Phone Number [facility] [address] [place] [address] [phone] * Lipase (03/20/2024 2:28 PM EST) Lipase 16 8 - 78 U/L [facility] 03/20/2024 2:28 PM EST 03/20/2024 2:33 PM EST Generic External Data Provider LAB BLOOD ORDERAB LES Final Result Performing Organization Address [facility] Co de Phone Number [facility] [address] [place] [address] [phone] * Lactic Acid (03/20/2024 2:28 PM EST) Pathologist [facility] Lactic Acid 0.8 0.5 - 2.0 mmol/L [facility] 03/20/2024 2:28 PM EST 03/20/2024 2:33 PM EST Generic External Data Provider LAB BLOOD ORDERAB LES Final Result Performing Organization Address [facility] Co de Phone Number [facility] [address] [place] [phone] * (ABNORMAL) Hepatic Function Panel (03/20/2024 2:28 PM EST) [facility] Bilirubin, Total 0.4 0.0 - 1.0 mg/dL [facility] Bilirubin, Direct 0.2 0.0 - 0.5 mg/dL [facility] Aspartate Amino Transferase 173(H) 5 - 31 U/L [facility] Alanine Aminotransferase 249(H) 0 - 31 U/L [facility] Total Protein 7.8 6.5 - 8.0 g/dL [facility] Albumin Level 3.8 3.5 - 5.0 g/dL [facility] Alkaline Phosphatase 138(H) 39 - 117 U/L [facility] 03/20/2024 2:28 PM EST 03/20/2024 2:33 PM EST [employer] External Data Provider LAB BLOOD ORDERAB LES Final Result Performing Organization Address [facility] [facility]/ZIP Co de Phone Number [facility] [address] [place] [phone] * (ABNORMAL) Basic Metabolic Panel (03/20/2024 2:28 PM EST) [facility] Sodium 143 135 - 145 mmol/L [facility] Potassium 3.7 3.3 - 5.1 mmol/L [facility] Chloride 112(H) 96 - 108 mmol/L [facility] Carbon Dioxide 23 22 - 29 mmol/L [facility] Anion Gap 12 12 - 20 [facility] Urea Nitrogen (BUN) 13 9 - 16 mg/dL [facility] Creatinine, Serum 0.82 0.5 - 1.4 mg/dL [facility] Creatinine Clr Calc Pharmacy 73.7 [facility] Comment:Provided height and weight: 157.48 cm,91.172 kg.eGFR (calculated from the MDRD study equation) and eCrCl(calculated from the Cockcroft-Gault equation) are based ondifferent parameters and may not yield comparable results.If eCrCl result is absurd, please check patient'sheight/weight. Estimated Glomerular Filt Rate >60 [facility] Comment:Chronic Kidney Disea se: Estimated GFR < 60 mL/min/[id number] Kidney Disease: Estimated GFR < 15 mL/min/1.73m2 Glucose 112 60 - 115 mg/dL [facility] Calcium 8.7 8.4 - 10.2 mg/dL [facility] 03/20/2024 2:28 PM EST 03/20/2024 2:33 PM EST us Generic External Data Provider LAB BLOOD ORDERAB LES Final Result Performing Organization Address City/State/[facility] Co de Phone Number [facility] [address] [place] [address] [phone] * XR Chest 1 View (02/29/2024 1:36 PM EST) Anatomical Region Laterality Modality Chest Radiographic Griselda ging 02/29/2024 1:36 PM EST Narrative 02/29/2024 1:38 PM EST ? [facility] ?[address] ?[place] [address] ?XRay Report ? Signed ? Patient: Avinash Ho,Nuvia E ?MR ?? #: [id number] ? : 1960 ?Acct:[id number] ? Age/Sex: 63 / F ?ADM Date: /12/25 ? Loc: HO.ED ? Attending Dr: ? Ordering Physician: Kourtney Jones MD ?? Date of Service: 02/29/24 ?? Procedure(s): XR chest 1V ?? Accession Number(s): [id number] ? cc: Kourtney Jones MD; ANTHONY RUIZ [...] DD/ 1336 ? TD/TT: 02/29/24 1336 ? Visual Coordinator: ? Procedure Note Donsahilmarshaanayeliter, Image - 02/29/[address] [address] XRay Report Signed Patient: Nuvia Fay EMR #: [id number] : 1960cct:[id number] Age/Sex: 63 / FADM Date: 02/29/24 Loc: HO.ED Attending Dr: Ordering Physician: Kourtney Jones MD Date of Service: 02/29/24 Procedure(s): XR chest 1V Accession Number(s): [id number] cc: Kourtney Jones MD; ANTHONY RUIZ NP [...] Myrick MD in OV> 02/29/24 1337 DD/ 1336 TD/TT: 02/29/24 1336 Visual Coordinator: [facility] External Provider IMG XR PROCEDURES Edited Result - Final * Bacterial Vaginosis (02/19/2024 1:18 PM EST) TRICHOMONAS VAGINALIS DETECTION BY PCR NOT DETECTED Not Detect [facility] BACTERIAL VAGINOSIS DETECTION BY PCR NEGATIVE Negative [facility] Comment:The BV organism targ ets [...] DETECTION BY PCR NOT DETECTED Not Detect [facility] Eufemia glab krusei PCR NOT DETECTED Not Detect [facility] 02/19/2024 1:18 PM EST 02/19/2024 3:45 PM EST Generic External Data Provider LAB MICROBIOLOGY - GENERAL ORDERABLES Final Result Performing Organization Address City/State/[facility] Co de Phone Number [facility] [address] [place] [phone] * POCT FRANKLIN-14 Urine Drug Screen (02/04/2024 9:31 AM EST) Urine Urine specimen obtained by clean catch procedure / Unknown 02/04/2024 9:31 AM EST Narrative Azeb Hall RN - 02/04/2024 9:31 AM EST negative for THC, MOP, OXY, RENETTA, MET, AMP, BZO, BAR, MTD, BUPG, TCA, MDMA, PCP, PPX. Lot# [id number] Exp: 01-23-25 Anthony Ruiz [facility] POINT OF CARE TEST ENTER/EDIT OR DERABLES Final Result * Albumin, Random Urine W/Creatinine (01/02/2024 8:44 AM EST) Creatinine, Urine 47.20 mg/dL [facility] Microalbumin Urine 7.0 mg/L H [facility] Microalbum Creatinine Ratio Ur 14.8 <30 ug/mg cr [facility] Comment:Albumin/Creatinine R atio Reference Ranges: Normal: < 30 ug/mg creatinine Microalbuminuria: 30 - 300 ug/mg creatinineClinical Albuminuria: > 300 ug/mg creatinine Urine (Urine, Random) 01/02/2024 8:44 AM EST 01/02/2024 11:09 AM EST [facility] LAB URINE ORDERABLES Final Resul t Performing Organization Address [facility]/ZIP Co de Phone Number [facility] [address] [place] [phone] * (ABNORMAL) Hemoglobin A1c (01/02/2024 8:44 AM EST) Hemoglobin A1c 6.6(H) <6.0 % [facility] Comment:Hemoglobin A1C Refer ence Range Adults: 4.8 - 6.0 % Non diabetic: < 6.0 % Goal: < 7.0 %Additional Action Suggested: > 8.0 %Note: Hemoglobin A1c results are invalid for patients with abnormal amounts of HbF. Blood transfusions may impact the HbA1c concentration in the patient sample. Estimated Average Glucose 143 mg/dL [facility] Comment:eAG = Estimated ave rage glucose which is %A1C expressed asaverage glucose, using the formula of the D0V-HqvdnpaQgcykze Glucose study (ADAG), Diabetes Care, Vol.31,#8,Sep. 2007 01/02/2024 8:44 AM EST 01/02/2024 11:03 AM EST [facility] External Data Provider LAB BLOOD ORDERAB LES Final Result Performing Organization Address [facility]/ZIP Co de Phone Number [facility] [address] [place] [phone] * Lipid Panel, Standard (01/02/2024 8:44 AM EST) Triglycerides 93 <150 mg/dL [facility] Comment:Desirable Triglyceri de: less than 150 mg/dLBorderline High Triglyceride 150-199 mg/dLHigh Triglyceride: 200-499 mg/dLVery High Triglyceride: greater than or equal to 5OO mg/dL Cholesterol 177 <200 mg/dL [facility] Comment:Desirable Cholestero l: less than 200 mg/dLBorderline High Cholesterol: 200-239 mg/dLHigh Cholesterol: greater than 239 mg/dL LDL Cholesterol Calculated 90 <100 mg/dL [facility] Comment:Desirable LDL: less than 100 mg/dLNear Optimal/Above Optimal LDL: 110- 129 mg/dLBorderline High LDL: 130-159 mg/dLHigh LDL: 160-189 mg/dLVery High LDL: greater than or equal to 190 mg/dL HDL Cholesterol 69 >40 mg/dL [facility] Comment:Desirable HDL: great er than 40 mg/dL Note: This HDL assay may give artificially low results in patients with liver disease. 01/02/2024 8:44 AM EST 01/02/2024 11:03 AM EST us Generic External Data Provider LAB BLOOD ORDERAB LES Final Result Performing Organization Address City/State/[facility] Co de Phone Number [facility] [address] [place] [phone] * BI Mammogram Screening Tomosynthesis Bilateral (03/20/2023 12:57 PM EST) Anatomical Region Laterality Modality Breast Bilateral Mammography 03/20/2023 12:5 7 PM EST Narrative 04/01/2023 9:47 AM EST ? [facility] [place] ? [address] ?[place] [address] ? Mammography Report ? Signed ? Patient: Avinash Ho,Nuvia E ?MR ?? #: [id number] ? : 1960 ?Acct:[id number] ? Age/Sex: 62 / F ?ADM Date: //24 ? Loc: HO.MAMMO ? Attending Dr: Monica Lozano CNM ? Ordering Physician: Monica Lozano CNM ?Results: 2Beni ?? gn Findings ? Date of Service: 03/20/23 ?Follow Up: 1 Year From Orig ?? inal Mammogram ? Procedure(s): MM tomosynthesis screening BI ?? Accession Number(s): [id number] ? cc: Monica Lozano CNM; ANTHONY RUIZ NP ? EXAMINATION: ?? MM SCREENING DIGITAL BREAST TOMOSYNTHESIS, BILATERAL ? CLINICAL INFORMATION: ? Screening. Asymptomatic. ? COMPARISON: ?? Mammography: This study is compared with prior exams dating back to ?? 2018. ? TECHNIQUE: ?? Digital breast tomosynthesis is [...] 0943 ? DD/ 1257 ? TD/TT: ? Visual Coordinator: ? Procedure Note Donotuseinterpreter, Image - 04/01/2023 [place] [facility] [address] [place] [address] Mammography Report Signed Patient: Nuvia Fay EMR #: [id number] : 1Acct:[id number] Age/Sex: 62 / FADM Date: 03/20/23 Loc: HO.MAMMO Attending Dr: Monica Lozano CNM Ordering Physician: Monica Lozanoesults: 2Beni gn Findings Date of Service: 03/20/23Follow Up: 1 Year From Orig inal Mammogram Procedure(s): MM tomosynthesis screening BI Accession Number(s): [id number] cc: Monica Lozano CNM; ANTHONY RUIZ NP [...] in OV> 04/01/23 0943 DD/ 1257 TD/TT: Visual Coordinator: [facility] External Provider IMG BI PROCEDURES Final Result * (ABNORMAL) Hm Colonoscopy (12/27/2021) Colonoscopy Abnormal(A ) Normal Historical Provider HEALTH MAINTENANCE Final Result * HPV E6/E7 RFLX ALFRED 16 18/45 (05/09/2020 11:19 AM EDT) HPV mRNA E6/E7 rflx Not Detected Not Detected [facility] Comment: Methodology: Commercial Appraiser-Mediated Amplification This assay detects E6/E7 viral messenger RNA (mRNA) from 14 high-risk HPV types (16,18,31,33,35,39,45,51,52,56,58,59,66,68). The analytical performance characteristics of this assay have been determined by [employer]. The modifications have not been cleared or approved by the FDA. This assay has been validated pursuant to the CLIA regulations and is used for clinical purposes. For additional information, please refer to http://education.[employer].Hobobe/faq/XBE253e2 (This link if provided for information/ educational purposes only.) THIS TEST WAS PERFORMED AT: [employer] [address] [place] [address] [address] [place], [place] ??[phone] HERNAN WARREN MD 05/09/2020 11:1 9 AM EDT Yohana Lu HISTORICAL/NON ORDERABLE LABS Fi nal Result [facility] [address] from Last 3 Months or Most Recently Relevant to Health Maintenance Insurance [facility] - [facility] Care Teams Certified Ophthalmic Surgical Assistant Relationship Specialty Start Date End Date Ruiz, Anthony, ANP [address] [place] [address] PCP - General Family Medicine 09/23/19
--- OUTSIDE RECORDS SUMMARY | 2024-04-06 14:10 | XMS_ITS | Encounter Summary ---
Author Organization [employer] Address [address] [facility] 7t [place] [address] Care Team Providers Care Link Trainer Maintenance Man Name Role Phone Sariah Vickers Primary Care Provider [phone] Reason for Visit * Reason Onset Date Comments ER Follow-up 03/29/2024 Encounter Details Date Type Department Care Team ([facility] st Contact Info) Description 03/29/2024 Telephone [facility] MEDICINE [address] [place] [address] Candy Bains, RN [address] [place] [address] ER Follow-up Social History Tobacco Use Types Packs/Day Years [...] Telephone Encounter - Candy Bains RN - 03/29/2024 3:29 PM EST Telephone call placed to pt for status check. She reports is doing better. She reports that she just left her appt with general surgery Dr Frank at [facility] and that the surgeon told her that she has an abscess and a hernia but that they told her they are going to take care of the abscess first. Reports improvement with Abx. Is scheduled to see general surgery again 03/06/24 at 1:45pm. Pt had a list of her appts and told me that she has mammo scheduled for same date and time as PCPvisit 03/12/24. Requesting to r/s PCP visit. R/Sd for 03/15 with PCP (still 30min follow up). Advisedshe contact us if she needs anything in the meantime but encouraged to keep appts with general surgery. Pt verbalized understanding and denied having any further questions or concerns at this time. Please call pt for status check s/p brief admission for abscesses. documented in this encounter Plan of Treatment Upcoming Encounters Date Type Department Care Team (Late st Contact Info) Description 04/09/2024 10:00 AM EST Office Visit [facility] ADULT DENTAL [address] [place] [address] Brendan Duartearis [address] [place] [address] 04/15/2024 1:30 PM EST Office Visit [address] [address] Sariah Vickers ANP [address] [place] [address] 04/23/2024 11:30 AM EST Clinical Support [address] [address] Azeb Hall, MARTIN [address] [place] [address] 04/29/2024 11:30 AM EDT Medication Management [address] [address] Yuri Pierre, MikeD [address] [place] [address] documented as of this encounter Goals Goal Patient Goal Type Associated Problems Recent Progress Patient-Stated? Author Blood Pressure < 140/90 Blood Pressure 130/91(2024 1:28 PM EST) No Phanis-Gambl Aida urbina, PharmD Record Your Blood Sugar As Directed General No Phanis-Gambl eVeronicasa, PharmD Hemoglobin A1c < 7 Result Component 6.6( 4 8:44 AM EST) No Phanis-Gambl Aida urbina, PharmD documented as of this encounter Visit Diagnoses Not on filedocumented in this encounter Additional Health Concerns Assessment Noted Time PHQ-9 Depression Total Score: 12 09/30/ 024 2:58 PM EDT documented as of this encounter Care Teams Link Trainer Maintenance Man Relationship Specialty Start Date End Date Sariah Vickers ANP [address] [place] [address] PCP - General Family Medicine 09/23/19 documented as of this encounter
--- OUTSIDE RECORDS SUMMARY | 2024-04-06 14:10 | XMS_ITS | Encounter Summary ---
Author Organization [employer] [facility] Address [address] [facility] 7t [place] [address] Care Team Providers Care Inclusion Special Educator Name Role Phone Sariah Vickers Primary Care Provider Reason for Visit * Reason Onset Date Comments Referral 05/17/2022 Encounter Details Date Type Department Care Team ([facility] st Contact Info) Description 05/17/2022 Telephone [facility] MEDICINE [address] [place] [address] Sariah Vickers ANP [address] [place] [address] Referral Social History Tobacco Use Types Packs/Day [...] guide to vertigo. Please contact pt at [phone] documented in this encounter Plan of Treatment Upcoming Encounters Date Type Department Care Team ([facility] st Contact Info) Description 04/09/2024 10:00 AM EST Office Visit [facility] ADULT DENTAL [address] [place] [address] Felicia, Nuvia [address] [place] [address] 04/15/2024 1:30 PM EST Office Visit [address] [address] Sariah Vickers ANP [address] [place] [address] 04/23/2024 11:30 AM EST Clinical Support [address] [address] Azeb Hall, RN [address] [place] [address] 04/29/2024 11:30 AM EDT Medication Management [address] [address] Yuri Pierre, PharmD [address] [place] [address] documented as of this encounter Visit Diagnoses Not on filedocumented in this encounter Care Teams Inclusion Special Educator Relationship Specialty Start Date End Date Sariah Vickers ANP [address] [place] [phone] PCP - General Family Medicine 09/23/19 documented as of this encounter
--- OUTSIDE RECORDS SUMMARY | 2024-04-06 14:10 | XMS_ITS | Encounter Summary ---
Author Organization [employer] Address [address] [facility] 7t [place] [address] Care Team Providers Care Credit Card Control Clerk Name Role Phone Sariah Vickers Primary Care Provider [phone] Reason for Visit * Reason Comments Med Refill Encounter Details Date Type Department Care Team ([facility] st Contact Info) Description 03/28/2024 Refill [facility] MED & PEDS [address] [place] [address] Sariah Vickers ANP [address] [place] [address] Cervicalgia Social History Tobacco Use Types Packs/Day [...] [facility] ADULT DENTAL [address] [place] [address] Nuvia Duarte [address] [place] [address] 04/15/2024 1:30 PM EST Office Visit [facility] MEDICINE [address] [place] [address] Sariah Vickers, KAYLEE [address] [place] [address] 04/23/2024 11:30 AM EST Clinical Support [address] [address] Azeb Hall, RN [address] [place] [address] 04/29/2024 11:30 AM EDT Medication Management [address] [address] Yuri Pierre, MikeD [address] [place] [phone] documented as of this encounter Goals Goal [...] documented as of this encounter Care Teams Credit Card Control Clerk Relationship Specialty Start Date End Date Sariah Vickers ANP [address] [place] [phone] PCP - General Family Medicine 09/23/19 documented as of this encounter
--- OUTSIDE RECORDS SUMMARY | 2024-04-06 14:10 | XMS_ITS | Encounter Summary ---
Author Organization [employer] [facility] Address [address] [facility] 7t [place] [address] Care Team Providers Care Revenue Field Agent Name Role Phone Sariah Vickers Primary Care Provider [phone] Reason for Visit * Reason Onset Date Comments Nurse Triage 12/24/2022 Encounter Details Date Type Department Care Team ([facility] st Contact Info) Description 12/24/[address] [facility] MEDICINE [address] [place] [address] Sariah Vickers ANP [address] [place] [address] Nurse Triage Social History Tobacco Use Types [...] the past 12 months, has t he [employer], gas, oil or water [employer] threatened to shut off services in your [...] - 12/24/2022 1:11 PM EST Called pt.via [employer] interpreter translator [phone] Benjamin. Pt. States that she wants to [...] regimen and possible referral to a new Pilot Supervisor due to pt. Not having jeremie in [...] accepted this outcome Please contact pt at [phone] documented in this encounter Plan of Treatment Upcoming Encounters Date Type Department Care Team (Late st Contact Info) Description 04/09/2024 10:00 AM EST Office Visit [facility] ADULT DENTAL [address] [place] [address] Nuvia Duarte [address] [place] [address] 04/15/2024 1:30 PM EST Office Visit [address] [address] Sariah Vickers ANP [address] [place] [address] 04/23/2024 11:30 AM EST Clinical Support [address] [phone] Azeb Hall, MARTIN [address] [place] [address] 04/29/2024 11:30 AM EDT Medication Management [address] [phone] Yuri Pierre, MikeD [address] [place] [address] documented as of this encounter Goals Goal Patient Goal Type Associated Problems Recent Progress Patient-Stated? Author Blood Pressure < 140/90 Blood Pressure 130/91(2024 1:28 PM EST) No Aida Ragland, PharmD Record Your Blood Sugar As Directed General No PhanisAida Cheng, PharmD Hemoglobin A1c < 7 Result Component 6.6( 4 8:44 AM EST) No Aida Ragland, PharmD documented as of this encounter Visit Diagnoses Not on filedocumented in this encounter Care Teams Revenue Field Agent Relationship Specialty Start Date End Date Sariah Vickers ANP [address] [place] [phone] PCP - General Family Medicine 09/23/19 documented as of this encounter
--- OUTSIDE RECORDS SUMMARY | 2024-04-06 14:10 | XMS_ITS | Encounter Summary ---
Author Organization [employer] Address [address] [facility] 7t [place] [address] Care Team Providers Care Bulk Clerk Name Role Phone Sariah Vickers Primary Care Provider [phone] Reason for Visit * Reason Comments Med Refill Encounter Details Date Type Department Care Team ([facility] st Contact Info) Description 12/27/2022 Refill [facility] MEDICINE [address] [place] [address] Sariah Vickers ANP [address] [place] [address] Neck pain Social History Tobacco Use Types [...] Description 04/09/2024 10:00 AM EST Office Visit [facility] ADULT DENTAL [address] [place] [address] Nuvia Duarte [address] [place] [address] 04/15/2024 1:30 PM EST Office Visit [facility] MEDICINE [address] [place] [address] Sariah Vickers, ANP [address] [place] [phone] 04/23/2024 11:30 AM EST Clinical Support [address] [address] Azeb Hall, RN [address] [place] [address] 04/29/2024 11:30 AM EDT Medication Management [address] [address] Yuri Pierre, Dileep [address] [place] [phone] documented as of this encounter Goals Goal Patient Goal Type Associated Problems Recent Progress Patient-Stated? Author Blood Pressure < 140/90 Blood Pressure 130/91(2024 1:28 PM EST) No Aida Ragland PharmD Record Your Blood Sugar As Directed General No Aida Ragland, PharmBear Hemoglobin A1c < 7 Result Component 6.6(11/15/202 4 8:44 AM EST) No Aida Ragland, MikeD documented as of this encounter Visit Diagnoses Diagnosis Neck pain Cervicalgia documented in this encounter Care Teams Bulk Clerk Relationship Specialty Start Date End Date Sariah Vickers ANP [address] [place] [phone] PCP - General Family Medicine 09/23/19 documented as of this encounter
--- OUTSIDE RECORDS SUMMARY | 2024-04-06 14:10 | XMS_ITS | Encounter Summary ---
Author Organization [employer] Address [address] [facility] 7t [place] [address] Care Team Providers Care Peer Counselor Name Role Phone Sariah Vickers Primary Care Provider [phone] Encounter Details Date Type Department Care Team (Late st Contact Info) Description 04/01/2024 Refill [facility] MEDICINE [address] [place] [address] Sariah Vickers ANP [address] [place] [address] Type 2 diabetes mellitus with hyperlipidemia (CMS/HCC) (CMS/HCC) (Primary Dx) Social History Tobacco Use Types [...] encounter Miscellaneous Notes * Telephone Encounter - Yuri Pierre PharmD - 04/01/2024 12:57 PM EST [facility] Pharmacy requested prescription for Freestyle jalil 2 reader to replace lost reader for patient. PCP agreeable to provide replacement ahead of visit 04/15/2024. Pharmacist sent prescription for Freestyle Jalil 2 reader, use to scan sensor every 8 hours to [facility] pharmacy. documented in this encounter Plan of Treatment Upcoming Encounters Date Type Department Care Team (Late st Contact Info) Description 04/09/2024 10:00 AM EST Office Visit [facility] ADULT DENTAL [address] [place] [address] Nuvia Duarte [address] [place] [address] 04/15/2024 1:30 PM EST Office Visit [facility] MEDICINE [address] [place] [address] Sariah Vickesr ANP [address] [place] [address] 04/23/2024 11:30 AM EST Clinical Support [facility] MEDICINE [address] [place] [address] Azeb Hall RN [address] [place] [address] 04/29/2024 11:30 AM EDT Medication Management [facility] MEDICINE [address] [place] [address] Yuri Pierre, Dileep [address] [place] [address] documented as of this encounter Goals Goal [...] Diagnosis Type 2 diabetes mellitus with hyperlipidemia (CMS/HCC) (CMS/HCC)- Primary documented in this encounter Additional Health Concerns Assessment Noted Time PHQ-9 Depression Total Score: 12 024 2:58 PM EDT documented as of this encounter Care Teams Peer Counselor Relationship Specialty Start Date End Date Sariah Vickers ANP [address] [place] [address] PCP - General Family Medicine 09/23/19 documented as of this encounter
--- OUTSIDE RECORDS SUMMARY | 2024-04-06 14:10 | XMS_ITS | Clinical Summary ---
Author Organization [address] [facility] Address 175 [place] [address] Phone Care Team Providers Care Movie Stunt Performer Name Role Phone Sariah Vickers NP Primary Care Provider [phone] Social History Tobacco Use Types Packs/Day Years Used Date Smoking Tobacco: Never Assessed Comments Unknown Sex and Gender Information Value Date Recorded Sex Assigned at Not on file Legal Sex Female 11:21 PM EST Gender Identity Not on file Sexual Orientation Not on file Plan of Treatment Health Maintenance Due Date Last Done Comments Breast Cancer Screening 1960 Cervical Cancer Screening: P ap Smear 1981 Pneumococcal Vaccine: 50+ Ye ars (1 of 1 - PCV) 2010 Hepatitis B Vaccines (2 of 3 - 19+ 3-dose series) 08/11/2018 07/14/2018 Zoster Vaccines (2 of 2) 06/04/2019 04/09/2019 Colorectal Cancer Screening: Colonoscopy 01/29/2022 Depression Screening 01/29/2022 HIV Screening 01/29/2022 Hepatitis C Screening 01/29/2022 Social Influencers of Health Screening 01/29/2022 COVID-19 Vaccine (1 - 2023-2 5 season) 2023 Influenza Vaccine [...] patient's age to complete this topic Meningococcal B Vacine Aged Out No lo nger eligible based on patient's age to complete [...] age to complete this topic Care Teams Movie Stunt Performer Relationship Specialty Start Date End Date Sariah Vickers NP [address] [place] [phone] PCP - General 12/03/23
--- OUTSIDE RECORDS SUMMARY | 2024-04-06 14:10 | XMS_ITS | Encounter Summary ---
Author Organization [employer] Address 75 [facility] 7t [place] [address] Care Team Providers Care Commissary Agent Name Role Phone Sariah Vickers Primary Care Provider [phone] Reason for Visit * Reason Comments Med Refill Encounter Details Date Type Department Care Team ([facility] st Contact Info) Description 05/09/2023 Refill [facility] 230 [place] [address] Sariah Vickers ANP 230 [place] [address] High cholesterol Social History Tobacco Use Types [...] Visit [facility] ADULT DENTAL [address] [place] [address] Nuvia Duarte [address] [place] [address] 04/15/2024 1:30 PM EST Office Visit [facility] [address] [place] [address] Sariah Vickers, ANP [address] [place] [address] 04/23/2024 11:30 AM EST Clinical Support [address] [address] Azeb Hall, RN 505 [place] [address] 04/29/2024 11:30 AM EDT Medication Management [address] [address] Yuri Pierre, Dileep [address] [place] [address] documented as of this encounter Goals Goal [...] hypercholesterolemia documented in this encounter Care Teams Commissary Agent Relationship Specialty Start Date End Date Sariah Vickers ANP [address] [place] [address] PCP - General Family Medicine 09/23/19 documented as of this encounter
--- OUTSIDE RECORDS SUMMARY | 2024-04-06 14:10 | XMS_ITS | Encounter Summary ---
Author Organization [employer] Address 75 [facility] 7t [place] [address] Care Team Providers Care Dry Cell Battery Assembler Name Role Phone Sariah Vickers Primary Care Provider [phone] Reason for Visit * Reason Comments Med Refill Encounter Details Date Type Department Care Team ([facility] st Contact Info) Description 04/02/2024 Refill [facility] [address] [place] [address] Sariah Vickers ANP 230 [place] [address] Neck pain Social History Tobacco Use Types [...] Description 04/09/2024 10:00 AM EST Office Visit [facility] ADULT [facility] [address] [place] [address] Nuvia Duarte [address] [place] [address] 04/15/2024 1:30 PM EST Office Visit [facility] [address] [place] [address] Sariah Vickers, KAYLEE [address] [place] [address] 04/23/2024 11:30 AM EST Clinical Support [address] [address] Azeb Hall, RN 505 [place] [address] 04/29/2024 11:30 AM EDT Medication Management [address] [address] Yuri Pierre, MikeD [address] [place] [address] documented as of this encounter Goals Goal [...] documented as of this encounter Care Teams Dry Cell Battery Assembler Relationship Specialty Start Date End Date Sariah Vickers ANP [address] [place] [address] PCP - General Family Medicine 09/23/19 documented as of this encounter
--- OUTSIDE RECORDS SUMMARY | 2024-04-06 14:10 | XMS_ITS | Encounter Summary ---
Author Organization [employer] Address 75 [facility] 7t [place] [address] Care Team Providers Care Mine Safety Director Name Role Phone Sariah Vickers Primary Care Provider [phone] Reason for Visit * Reason Comments Med Refill Encounter Details Date Type Department Care Team ([facility] st Contact Info) Description 04/06/2024 Refill [facility] MED[facility] 230 [place] [address] Sariah Vickers ANP 230 [place] [address] Severe persistent asthma without complication Social History [...] Description 04/09/2024 10:00 AM EST Office Visit [facility] ADULT DENTAL [address] [place] [address] Nuvia Duarte [address] [place] [address] 04/15/2024 1:30 PM EST Office Visit [facility] MED[facility] [address] [place] [address] Sariah Vickers, KAYLEE [address] [place] [address] 04/23/2024 11:30 AM EST Clinical Support [address] [address] Azeb Hall, RN 505 [place] [address] 04/29/2024 11:30 AM EDT Medication Management [address] [address] Yuri Pierre, MikeD [address] [place] [address] documented as of this encounter Goals Goal [...] documented as of this encounter Care Teams Mine Safety Director Relationship Specialty Start Date End Date Sariah Vickers ANP [address] [place] [address] PCP - General Family Medicine 09/23/19 documented as of this encounter
--- OUTSIDE RECORDS SUMMARY | 2024-04-06 14:10 | XMS_ITS | Encounter Summary ---
Author Organization [employer] Address 75 [facility] 7t [place] [address] Care Team Providers Care Rotoprinter Name Role Phone Sariah Vickers Primary Care Provider [phone] Reason for Visit * Reason Comments Med Refill Encounter Details Date Type Department Care Team ([facility] st Contact Info) Description 12/19/2022 Refill [facility] 230 [place] [address] Sariah Vickers ANP 230 [place] [address] Vertigo Social History Tobacco Use Types Packs/Day [...] Description 04/09/2024 10:00 AM EST Office Visit [facility] ADULT DENTAL [address] [place] [address] Nuvia Duarte [address] [place] [address] 04/15/2024 1:30 PM EST Office Visit [facility] [address] [place] [address] Sariah Vickers, ANP [address] [place] [address] 04/23/2024 11:30 AM EST Clinical Support [address] [address] Azeb Hall, RN 505 [place] [address] 04/29/2024 11:30 AM EDT Medication Management [address] [address] Yuri Pierre, Dileep [address] [place] [address] documented as of this encounter Goals Goal [...] giddiness documented in this encounter Care Teams Rotoprinter Relationship Specialty Start Date End Date Sariah Vickers ANP [address] [place] [address] PCP - General Family Medicine 09/23/19 documented as of this encounter
--- OUTSIDE RECORDS SUMMARY | 2024-04-06 14:10 | XMS_ITS | Encounter Summary ---
Author Organization [employer] Address 75 [facility] 7t [place] [address] Care Team Providers Care Antique Furniture Restorer Name Role Phone Sariah Vickers Primary Care Provider [phone] Reason for Visit * Reason Comments Med Refill Encounter Details Date Type Department Care Team ([facility] st Contact Info) Description 03/04/2023 Refill [facility] 230 [place], [place] [phone] Brittney Nava MD 230 [place] [address] Social History Tobacco Use Types Packs/Day Years [...] AM EST Office Visit [facility] [address] [place] [address] Nuvia Duarte [address] [place] [address] 04/15/2024 1:30 PM EST Office Visit [address] [address] Sariah Vickers, ANP [address] [place] [address] 04/23/2024 11:30 AM EST Clinical Support [address] [address] Azeb Hall, RN 505 [place] [address] 04/29/2024 11:30 AM EDT Medication Management [address] [address] Yuri Pierre, Dileep [address] [place] [address] documented as of this encounter Goals Goal [...] on filedocumented in this encounter Care Teams Antique Furniture Restorer Relationship Specialty Start Date End Date Sariah Vickers ANP [address] [place] [address] PCP - General Family Medicine 09/23/19 documented as of this encounter
--- OUTSIDE RECORDS SUMMARY | 2024-04-06 14:10 | XMS_ITS | Encounter Summary ---
Author Organization [employer] [facility] Address 75 [facility] 7t [place] [address] Care Team Providers Care Denture Technician Name Role Phone Sariah Vickers Primary Care Provider [phone] Reason for Referral * Medications - Closed Specialty Diagnoses / Procedures Referred By Queenie gomez Referred To Contact Diagnoses Chronic bilateral low back pain, unspecified whether sciatica present Sariah Vickers ANP 230 [place] [address] Phone: tel: fax: Referral ID Status Reason Start Date Expiration Date Visits Re quested Visits Authorized [id number] Closed 1 1 Reason for Visit * Reason Comments Med Refill Encounter Details Date Type Department Care Team (Late st Contact Info) Description 04/02/2024 Refill [facility] [address] [place] [address] [phone] Sariah Vickers ANP 230 [place], [place] [phone] Essential hypertension; Chronic SI joint pain; Chronic bilateral low back pain, unspecified whether sciatica present Social History Tobacco Use Types Packs/Day Years [...] Description 04/09/2024 10:00 AM EST Office Visit [facility] [address] [place] [address] Nuvia Duarte 230 [place] [address] 04/15/2024 1:30 PM EST Office Visit [facility] [address] [place] [address] Sariah Vickers ANP [address] [place] [address] 04/23/2024 11:30 AM EST Clinical Support [address] [address] Azeb Hall RN 505 [place] [address] 04/29/2024 11:30 AM EDT Medication Management [facility] 230 [place] [address] Yuri Pierre, MikeD 230 [place] [address] documented as of this encounter Goals Goal [...] of this encounter Visit Diagnoses Diagnosis Essential hypertension Unspecified essential hypertension Chronic SI joint pain Disorders of sacrum Chronic bilateral low back pain, unspecified whether sciatica present documented in this encounter Additional Health Concerns Assessment Noted Time PHQ-9 Depression Total Score: 12 024 2:58 PM EDT documented as of this encounter Care Teams Denture Technician Relationship Specialty Start Date End Date Sariah Vickers ANP 230 [place] [address] PCP - General Family Medicine 09/23/19 documented as of this encounter
--- OUTSIDE RECORDS SUMMARY | 2024-04-06 14:10 | XMS_ITS | Encounter Summary ---
Author Organization [employer] [facility] Address 75 [facility] 7t [place] [address] Care Team Providers Care Truck Body Repairer Name Role Phone Sariah Vickers Primary Care Provider [phone] Reason for Visit * Reason Onset Date Comments Nurse Triage 01/14/2023 Encounter Details Date Type Department Care Team ([facility] st Contact Info) Description 01/14/2023 Telephone [facility] MED[facility] 230 [place] [address] Sariah Vickers ANP 230 [place] [address] Nurse Triage Social History Tobacco Use Types [...] t he electric, gas, oil or water Age of Learning threatened to shut off services in your [...] 01/14/2023 9:26 AM EST Called pt. Via Walk [employer] pelt inspector [phone] Kelly. Pt. States that she has been having a fire feeling in her legs. Its like A burning that goes down her legs . Pt. Unsure if it because of her Diabetes. Pt. Went to [facility] ED for pain on her left side [...] at 10am. Will send note to clinical home health care respiratory therapist to have note put in chart . [...] Severe pain now, pt was seen at [facility] on 01/13 for pain in leg. Pt is still symptomatic The caller accepted this outcome Please contact pt at [phone] (case assembler needed) documented in this encounter Plan of Treatment Upcoming Encounters Date Type Department Care Team ([facility] st Contact Info) Description 04/09/2024 10:00 AM EST Office Visit [facility] ADULT DENTAL [address] [place] [address] Felicia, Nuvia 230 [place] [address] 04/15/2024 1:30 PM EST Office Visit [address] [address] Sariah Vickers ANP [address] [place] [address] 04/23/2024 11:30 AM EST Clinical Support [address] [address] Azeb Hall, RN 505 [place] [address] 04/29/2024 11:30 AM EDT Medication Management [address] [address] Yuri Pierre, Dileep [address] [place] [address] documented as of this encounter Goals Goal [...] on filedocumented in this encounter Care Teams Truck Body Repairer Relationship Specialty Start Date End Date Sariah Vickers ANP [address] [place] [address] PCP - General Family Medicine 09/23/19 documented as of this encounter
--- OUTSIDE RECORDS SUMMARY | 2024-04-06 14:10 | XMS_ITS | Encounter Summary ---
Author Organization [employer] [facility] Address [address] [place] [address] 7t [place] [address] Care Team Providers Care Paying Teller Name Role Phone Sariah Vickers Primary Care Provider [phone] Reason for Visit * Reason Comments Med Refill Encounter Details Date Type Department Care Team (Late Contact Info) Description 07/10/[address] [facility] MED[facility]INE 230 [place] [address] Sariah Vickers ANP 230 [place] [address] Vertigo Social History Tobacco Use Types Packs/Day [...] Visit [facility] ADULT DENTAL [address] [place] [address] Nuvia Duarte 230 [place] [address] 04/15/2024 1:30 PM EST Office Visit [address] [address] Sariah Vickers ANP [address] [place] [address] 04/23/2024 11:30 AM EST Clinical Support [address] [address] Azeb Hall RN 505 [place] [address] 04/29/2024 11:30 AM EDT Medication Management [address] [address] Yuri Pierre, PharmD [address] [place] [address] documented as of this encounter Visit Diagnoses Diagnosis Vertigo Dizziness and giddiness documented in this encounter Care Teams Paying Teller Relationship Specialty Start Date End Date Sariah Vickers ANP [address] [place] [address] PCP - General Family Medicine 09/23/19 documented as of this encounter
--- OUTSIDE RECORDS SUMMARY | 2024-04-06 14:10 | XMS_ITS | Encounter Summary ---
Author Organization [employer] [facility] Address 75 [facility] 7t [place] [address] Care Team Providers Care Adoption Specialist Name Role Phone Sariah Vickers Primary Care Provider [phone] Reason for Visit * Reason Onset Date Comments Med Refill 03/04/2023 Encounter Details Date Type Department Care Team ([facility] st Contact Info) Description 03/04/2023 Telephone [facility] MEDICINE 230 [place] [address] Sariah Vickers ANP 230 [place] [address] Med Refill Social History Tobacco Use Types [...] 50 MG tablet To be sent to: [facility] [place], [place] - [address] [place] [address] documented in this encounter Plan of Treatment Upcoming Encounters Date Type Department Care Team (Late st Contact Info) Description 04/09/2024 10:00 AM EST Office Visit [facility] ADULT DENTAL [address] [place] [address] Nuvia Duarte 230 [place] [address] 04/15/2024 1:30 PM EST Office Visit [facility] MED[facility]INE [address] [place] [address] Sariah Vickers, ANP 230 [place] [address] 04/23/2024 11:30 AM EST Clinical Support [facility] [address] [place] [address] Azeb Hall RN 505 [place] [address] 04/29/2024 11:30 AM EDT Medication Management [facility] [address] [place] [address] Yuri Pierre, PharmD [address] [place] [address] documented as of this encounter Goals Goal Patient Goal Type Associated Problems Recent Progress Patient-Stated? Author Blood Pressure < 140/90 Blood Pressure 130/91(2024 1:28 PM EST) No Phanis-Aida Medina, PharmD Record Your Blood Sugar As Directed General No Phanis-GambAida buck, PharmD Hemoglobin A1c < 7 Result Component 6.6( 8:44 AM EST) No PhanisAida Cheng, PharmD documented as of this encounter Visit Diagnoses Not on filedocumented in this encounter Care Teams Adoption Specialist Relationship Specialty Start Date End Date Sariah Vickers ANP [address] [place] [address] PCP - General Family Medicine 09/23/19 documented as of this encounter
--- OUTSIDE RECORDS SUMMARY | 2024-04-06 14:10 | XMS_ITS | Encounter Summary ---
Author Organization [employer] Address 75 [facility] 7t [place] [address] Care Team Providers Care Vulcan Crewmember Name Role Phone Sariah Vickers Primary Care Provider [phone] Encounter Details Date Type Department Care Team (Late st Contact Info) Description 03/29/2024 Orders Only [facility] MED[facility] 230 [place] [address] Sariah Vickers ANP 230 [place] [address] Social History Tobacco Use Types Packs/Day Years [...] AM EDT documented as of this encounter Progress Notes * KAYLEE Lopez - 03/29/2024 10:11 AM EST Please call pt for status check s/p brief admission for abscesses. Thanks documented in this encounter Plan of Treatment Upcoming Encounters Date Type Department Care Team (Late st Contact Info) Description 04/09/2024 10:00 AM EST Office Visit [facility] ADULT D[facility]AL [address] [place] [address] Nuvia Duarte [address] [place] [address] 04/15/2024 1:30 PM EST Office Visit [facility] [address] [place] [address] Sariah Vickers ANP [address] [place] [address] 04/23/2024 11:30 AM EST Clinical Support [address] [address] Azeb Hall, MARTIN 505 [place] [address] 04/29/2024 11:30 AM EDT Medication Management [address] [address] Yuri Pierre, PharmD [address] [place] [address] documented as of this encounter Goals Goal [...] documented as of this encounter Care Teams Vulcan Crewmember Relationship Specialty Start Date End Date Sariah Vickers ANP [address] [place] [address] PCP - General Family Medicine 09/23/19 documented as of this encounter
--- OUTSIDE RECORDS SUMMARY | 2024-04-06 14:10 | XMS_ITS | Encounter Summary ---
Author Organization [employer] Address 75 [facility] 7t [place] [address] Care Team Providers Care Clothes Shaker Name Role Phone Sariah Vickers Primary Care Provider [phone] Reason for Visit * Reason Comments Med Refill Encounter Details Date Type Department Care Team ([facility] st Contact Info) Description 03/07/2023 Refill [facility] 230 [place] [address] Sariah Vickers ANP 230 [place] [address] Vertigo Social History Tobacco Use Types Packs/Day [...] [facility] AD[facility] [address] [place] [address] Nuvia Duarte [address] [place] [address] 04/15/2024 1:30 PM EST Office Visit [facility] [address] [place] [address] Sariah Vickers, ANP [address] [place] [address] 04/23/2024 11:30 AM EST Clinical Support [address] [address] Azeb Hall, RN 505 [place] [address] 04/29/2024 11:30 AM EDT Medication Management [address] [address] Yuri Pierre, Dileep [address] [place] [address] documented as of this encounter Goals Goal [...] giddiness documented in this encounter Care Teams Clothes Shaker Relationship Specialty Start Date End Date Sariah Vickers ANP [address] [place] [address] PCP - General Family Medicine 09/23/19 documented as of this encounter
--- OUTSIDE RECORDS SUMMARY | 2024-04-06 14:10 | XMS_ITS | Encounter Summary ---
Author Organization [employer] [facility] Address 75 [facility] 7t [place] [address] Care Team Providers Care Insect Control Aide Name Role Phone Sariah Vickers Primary Care Provider [phone] Reason for Visit * Reason Onset Date Comments Nurse Triage 04/06/2024 Encounter Details Date Type Department Care Team ([facility] st Contact Info) Description 04/06/2024 Telephone [facility] MEDICINE 230 [place] [address] Sariah Vickers ANP 230 [place] [address] Nurse Triage Social History Tobacco Use Types [...] encounter Miscellaneous Notes * Telephone Encounter - Kiana Padilla RN - 04/06/2024 12:55 PM EST Reports having vomiting since dose Mounjaro on Friday. Per pt only had vomiting on Friday. No blood, green bile or coffee ground emesis. Per pt no vomiting today. Pt had fasting BS of 120mg/dL. Pt denies any diarrhea or FELISA sx . Mild abdominal pain. Pt advised that per last OV note with PCP pt had SE of Nausea to ozempic and was willing to try Mounjaro as Rx by Endo and refer to CDTM with [facility] pharmacist to continue DM management instead of Endo. Pt missed first appt in March. R/s for April, pt has upcoming appt with PCP. PCP out of office this week. Pt advised to follow up with Endo or to seek [facility] for evaluation of sx this week .Reviewed [facility] operating hours and that wait times vary. Reviewed home care advise, ER precautions and reasons to call back. Protocol Used: Vomiting (Adult) Protocol-Based Disposition: Callback or Video Visit by PCP Today Video visit offer not recorded Positive Triage Question: * Vomiting a prescription medication * All higher-acuity triage questions were negative Care Advice Discussed: * Clear Liquids * Reasons To Call Back - Vomiting lasts for more than 2 days (48 hours) - You become worse * Telephone Encounter - Maddy Garcias - 04/06/2024 11:02 AM EST Symptom: Vomiting Outcome: Schedule a same-day appointment or talk to a nurse or provider today Reason: Caller denied all higher acuity questions Pt requesting Ozempic The caller accepted this outcome. INDIAN SPEAKER documented in this encounter Plan of Treatment Upcoming Encounters Date Type Department Care Team (Late st Contact Info) Description 04/09/2024 10:00 AM EST Office Visit [facility] ADULT DENTAL [address] [place] [address] Brendan Duartearis 230 [place] [address] 04/15/2024 1:30 PM EST Office Visit [facility] MEDICINE [address] [place] [address] Sariah Vickers ANP 230 [place] [address] 04/23/2024 11:30 AM EST Clinical Support [address] [address] Azeb Hall, RN 505 [place] [address] 04/29/2024 11:30 AM EDT Medication Management [address] [address] Yuri Pierre, MikeD [address] [place] [address] documented as of this encounter Goals Goal [...] documented as of this encounter Care Teams Insect Control Aide Relationship Specialty Start Date End Date Sariah Vickers ANP 230 [place] [address] PCP - General Family Medicine 09/23/19 documented as of this encounter
--- OUTSIDE RECORDS SUMMARY | 2024-04-06 14:10 | XMS_ITS | Encounter Summary ---
Author Organization [employer] Address 75 [facility] 7t [place] [address] Care Team Providers Care Single Needle Operator Name Role Phone Sariah Vickers Primary Care Provider [phone] Reason for Visit * Reason Comments Med Refill Encounter Details Date Type Department Care Team ([facility] st Contact Info) Description 02/28/2023 Refill [facility] MEDICINE 230 [place] [address] Sariah Vickers ANP 230 [place] [address] Cervicalgia Social History Tobacco Use Types Packs/Day [...] Description 04/09/2024 10:00 AM EST Office Visit [facility] ADULT DENTAL [address] [place] [address] Nuvia Duarte [address] [place] [address] 04/15/2024 1:30 PM EST Office Visit [facility] MEDICINE [address] [place] [address] Sariah Vickers, ANP [address] [place] [address] 04/23/2024 11:30 AM EST Clinical Support [address] [address] Azeb Hall, RN 505 [place] [address] 04/29/2024 11:30 AM EDT Medication Management [address] [address] Yuri Pierre, Dileep [address] [place] [address] documented as of this encounter Goals Goal [...] Cervicalgia documented in this encounter Care Teams Single Needle Operator Relationship Specialty Start Date End Date Sariah Vickers ANP [address] [place] [address] PCP - General Family Medicine 09/23/19 documented as of this encounter
--- OUTSIDE RECORDS SUMMARY | 2024-04-06 14:11 | XMS_ITS | Encounter Summary ---
Author Organization [facility] Address [address] [place] [address] 7t [place] [address] Care Team Providers Care Supervisor Hanging And Trimming Name Role Phone Sariah Vickers Primary Care Provider [phone] Reason for Visit * Reason Comments Med Refill Encounter Details Date Type Department Care Team (Late Contact Info) Description 07/17/2022 Refill [facility] MEDICINE 230 [place] [address] Sariah Vickers ANP 230 [place] [address] Neck pain Social History Tobacco Use Types [...] 10:00 AM EST Office Visit [facility] ADULT DENTAL [address] [place] [address] Nuvia Duarte 230 [place] [address] 04/15/2024 1:30 PM EST Office Visit [address] [address] Sariah Vickers ANP [address] [place] [address] 04/23/2024 11:30 AM EST Clinical Support [address] [address] Azeb Hall, MARTIN 505 [place] [address] 04/29/2024 11:30 AM EDT Medication Management [address] [address] Yuri Pierre, PharmD [address] [place] [address] documented as of this encounter Visit Diagnoses Diagnosis Neck pain Cervicalgia documented in this encounter Care Teams Supervisor Hanging And Trimming Relationship Specialty Start Date End Date Sariah Vickers ANP [address] [place] [address] PCP - General Family Medicine 09/23/19 documented as of this encounter
--- OUTSIDE RECORDS SUMMARY | 2024-04-06 14:11 | XMS_ITS | Encounter Summary ---
Author Organization [employer] Address [address] [facility] [address] 7t [place] [address] Care Team Providers Care Supplier Engineer Name Role Phone Sariah Vickers Primary Care Provider [phone] Reason for Visit * Reason Comments Med Refill Encounter Details Date Type Department Care Team ([facility] st Contact Info) Description 07/10/2023 Refill [facility] 230 [place] [address] Sariah Vickers ANP 230 [place] [address] Chronic SI joint pain Social History Tobacco [...] Office Visit [facility] ADULT DENTAL [address] [place] [address] Nuvia Duarte [address] [place] [address] 04/15/2024 1:30 PM EST Office Visit [facility] MEDICINE [address] [place] [address] Sariah Vickers ANP [address] [place] [address] 04/23/2024 11:30 AM EST Clinical Support [address] [address] Azeb Hall, RN [address] [place] [address] 04/29/2024 11:30 AM EDT Medication Management [address] [address] Yuri Pierre, Dileep [address] [place] [address] documented as of this encounter Goals Goal [...] documented as of this encounter Care Teams Supplier Engineer Relationship Specialty Start Date End Date Sariah Vickers ANP [address] [place] [address] PCP - General Family Medicine 09/23/19 documented as of this encounter
--- OUTSIDE RECORDS SUMMARY | 2024-04-06 14:11 | XMS_ITS | Encounter Summary ---
Author Organization [employer] Address [address] [facility] 7t [place] [address] Care Team Providers Care Communication Skills Instructor Name Role Phone Sariah Vickers Primary Care Provider [phone] Reason for Visit * Reason Comments Med Refill Encounter Details Date Type Department Care Team ([facility] Contact Info) Description 08/14/2022 Refill [facility] MED & PEDS [address] [place] [address] Sariah Vickers ANP 230 [place] [address] Severe persistent asthma without complication Social History [...] Upcoming Encounters Date Type Department Care Team ([facility] Contact Info) Description 04/09/2024 10:00 AM EST Office Visit [facility] ADULT DENTAL [address] [place] [address] Brendan Duartearis 230 [place] [address] 04/15/2024 1:30 PM EST Office Visit [address] [address] Sariah Vickers ANP [address] [place] [address] 04/23/2024 11:30 AM EST Clinical Support [address] [address] Azeb Hall, RN 505 [place] [address] 04/29/2024 11:30 AM EDT Medication Management [address] [address] Yuri Pierre, PharmD [address] [place] [address] documented as of this encounter Visit Diagnoses Diagnosis Severe persistent asthma without complication documented in this encounter Care Teams Communication Skills Instructor Relationship Specialty Start Date End Date Sariah Vickers ANP [address] [place] [address] PCP - General Family Medicine 09/23/19 documented as of this encounter
--- OUTSIDE RECORDS SUMMARY | 2024-04-06 14:11 | XMS_ITS | Encounter Summary ---
Author Organization [employer] Address 75 [facility] 7t [place] [address] Care Team Providers Care Line Mover Name Role Phone Sariah Vickers Primary Care Provider [phone] Reason for Visit * Reason Onset Date Comments Med Refill Durable Medical Equipment 07/15/2023 Foam M attress/Raised Toilet Seat Encounter Details Date Type Department Care Team ([facility] st Contact Info) Description 07/15/2023 Refill [facility] MEDICINE 230 [place], [place] [phone] Sariah Vickers ANP 230 [place] [address] Neck pain Social History Tobacco Use Types [...] Please see request sent via email by [facility] Kiln Operator Helper Arlin Baker. Please Advise. Good morning, Our [...] Description 04/09/2024 10:00 AM EST Office Visit [facility] ADULT DENTAL 230 [place] [address] Nuvia Duarte 230 [place] [address] 04/15/2024 1:30 PM EST Office Visit [facility] MEDICINE 230 [place] [address] Sariah Vickers ANP 230 [place] [address] 04/23/2024 11:30 AM EST Clinical Support [address] [address] Azeb Hall, MARTIN 505 [place] [address] 04/29/2024 11:30 AM EDT Medication Management [address] [phone] Yuri Pierre, MikeD [address] [place] [address] documented as of this encounter Goals Goal [...] documented as of this encounter Care Teams Line Mover Relationship Specialty Start Date End Date Sariah Vickers ANP [address] [place] [address] PCP - General Family Medicine 09/23/19 documented as of this encounter
--- OUTSIDE RECORDS SUMMARY | 2024-04-06 14:11 | XMS_ITS | Encounter Summary ---
Author Organization [employer] Address 75 [facility] 7t [place] [address] Care Team Providers Care Paper Handler Name Role Phone Sariah Vickers Primary Care Provider [phone] Reason for Visit * Reason Comments Med Refill Encounter Details Date Type Department Care Team ([facility] st Contact Info) Description 06/30/2023 Refill [facility] MEDICINE 230 [place] [address] Sariah Vickers ANP 230 [place] [address] Neck pain Social History Tobacco Use Types [...] Visit [facility] ADULT DENTAL [address] [place] [address] Nuvia Duarte [address] [place] [address] 04/15/2024 1:30 PM EST Office Visit [address] [address] Sariah Vickers ANP [address] [place] [address] 04/23/2024 11:30 AM EST Clinical Support [address] [address] Azeb Hall, RN 505 [place] [address] 04/29/2024 11:30 AM EDT Medication Management [address] [address] Yuri Pierre, Dileep [address] [place] [address] documented as of this encounter Goals Goal [...] documented as of this encounter Care Teams Paper Handler Relationship Specialty Start Date End Date Sariah Vickers ANP [address] [place] [address] PCP - General Family Medicine 09/23/19 documented as of this encounter
--- OUTSIDE RECORDS SUMMARY | 2024-04-06 14:11 | XMS_ITS | Encounter Summary ---
Author Organization [employer] [facility] Address [address] [place] [address] 7t [place] [address] Care Team Providers Care Network Systems Engineer Name Role Phone Sariah Vickers Primary Care Provider [phone] Reason for Visit * Reason Comments Med Refill Encounter Details Date Type Department Care Team (Late Contact Info) Description 07/12/2022 Refill [facility] MEDICINE 230 [place] [address] Sariah Vickers ANP 230 [place] [address] Social History Tobacco Use Types Packs/Day Years [...] Visit [facility] ADULT DENTAL [address] [place] [address] Nuvia Duarte 230 [place] [address] 04/15/2024 1:30 PM EST Office Visit [address] [address] Sariah Vickers ANP [address] [place] [address] 04/23/2024 11:30 AM EST Clinical Support [address] [address] Azeb Hall, MARTIN 505 [place], [place] [phone] 04/29/2024 11:30 AM EDT Medication Management [address] [address] Yuri Pierre, PharmD [address] [place] [address] documented as of this encounter Visit Diagnoses Not on filedocumented in this encounter Care Teams Network Systems Engineer Relationship Specialty Start Date End Date Sariah Vickers ANP [address] [place] [address] PCP - General Family Medicine 09/23/19 documented as of this encounter
--- OUTSIDE RECORDS SUMMARY | 2024-04-06 14:11 | XMS_ITS | Encounter Summary ---
Author Organization [employer] [facility] Address [address] [facility] 7t [place] [address] Care Team Providers Care Fire Coordinator Name Role Phone Sariah Vickers Primary Care Provider [phone] Reason for Visit * Reason Comments Med Refill Encounter Details Date Type Department Care Team ([facility] st Contact Info) Description 05/21/2023 Refill [facility] MEDICINE 230 [place] [address] Sariah Vickers ANP 230 [place] [address] Neck pain Social History Tobacco Use Types [...] 10:00 AM EST Office Visit [facility] ADULT DENTAL [address] [place] [address] Nuvia Duarte [address] [place] [address] 04/15/2024 1:30 PM EST Office Visit [facility] MEDICINE [address] [place] [address] Sariah Vickers ANP [address] [place] [address] 04/23/2024 11:30 AM EST Clinical Support [address] [address] Azeb Hall, MARTIN [address] [place] [address] 04/29/2024 11:30 AM EDT Medication Management [address] [address] Yuri Pierre, PharmD [address] [place] [address] documented as of this encounter Goals Goal [...] Cervicalgia documented in this encounter Care Teams Fire Coordinator Relationship Specialty Start Date End Date Sariah Vickers ANP [address] [place] [address] PCP - General Family Medicine 09/23/19 documented as of this encounter
== END 2024-04-06 13:44 | disposition home or self-care (01) ==
PROVIDERS: PCP Nurse Practitioner Primary Care; Visit Provider Surgery
DX: K42.9 Umbilical hernia without obstruction or gangrene (principal); L02.33 Carbuncle of buttock; L02.231 Carbuncle of abdominal wall
CPT/HCPCS: 99214

== ENCOUNTER → 2024-04-06 13:14 | Outpatient (BNVA) | payer OTHER, SELFPAY | PROVIDERS: PCP Nurse Practitioner Primary Care; Visit Provider Surgery | DX: K42.9 Umbilical hernia without obstruction or gangrene (principal); Z09 Encounter for follow-up examination after completed treatment for conditions other than malignant neoplasm; Z87.2 Personal history of diseases of the skin and subcutaneous tissue; Z98.890 Other specified postprocedural states | CPT/HCPCS: 99212 ==

== ENCOUNTER 2024-04-12 13:43 | Outpatient (REF) | payer OTHER, SELFPAY ==
--- OUTSIDE RECORDS SUMMARY | 2024-04-12 15:42 | XMS_ITS | Clinical Summary ---
Author Organization [facility] Address [address] [place] [address] Phone Care Team Providers Care Ceo And Co Founder Name Role Phone Sariah Vickers NP Primary Care Provider [phone] Social History Tobacco Use Types Packs/Day Years [...] age to complete this topic Care Teams Ceo And Co Founder Relationship Specialty Start Date End Date Sariah Vickers NP [address] [place] [phone] PCP - General 12/03/23
== END 2024-04-12 13:44 | disposition home or self-care (01) ==
LOC: HO.MAMMO 13:43
PROVIDERS: PCP Nurse Practitioner Primary Care; Visit Provider Advanced Practice Midwife
DX: Z12.31 Encounter for screening mammogram for malignant neoplasm of breast (principal)
CPT/HCPCS: 77063; 77067

== ENCOUNTER → 2024-04-12 13:45 | Outpatient (BNV) | payer OTHER, SELFPAY | PROVIDERS: PCP Nurse Practitioner Primary Care; Visit Provider Internal Medicine | DX: Z12.31 Encounter for screening mammogram for malignant neoplasm of breast (principal) | CPT/HCPCS: 77063; 77067 ==

== ENCOUNTER 2024-04-20 12:56 | Outpatient (REF) | payer OTHER, SELFPAY ==
--- NOTE | ~2024-04-20 | XR_ITS ---
EXAMINATION: XR CHEST CLINICAL INFORMATION: cough, right posterior chest pain COMPARISON: None available. TECHNIQUE: 2 views of the chest were obtained. FINDINGS: The lungs are well-expanded and clear acute process. The heart size and pulmonary vascularity is normal. No gross bony abnormality seen XR/XR chest 2V IMPRESSION: Unremarkable chest examination. Electronically signed by: Saad Howell MD 04/21/2024 09:54 AM EST
[2024-04-20 14:24] LABS: D Dimer High Sensitivity 218 NG/ML
--- OUTSIDE RECORDS SUMMARY | 2024-04-20 16:03 | XMS_ITS | Encounter Summary ---
Author Organization [facility] Address [address] [place] [address] 7t [place] [address] Care Team Providers Care Forge Shop Supervisor Name Role Phone Sariah Vickers Primary Care Provider [phone] Encounter Details Date Type Department Care Team (Latest Contact Info) Description 05/15/2018 Abstract [facility] CONVERSIONS Dental, Provider, DDS Social History [...] Care Team (Late st Contact Info) Description 04/23/2024 11:30 AM EST Clinical Support [facility] MEDICINE [address] [place] [address] Azeb Hall RN 505 [place] [address] 04/29/2024 11:30 AM EDT Medication Management [facility] MEDICINE [address] [place] [address] Yuri Pierre, PharmD [address] [place] [address] 07/15/2024 1:00 PM EDT Office Visit [facility] MEDICINE [address] [place] [address] Sariah Vickers ANP 230 [place] [address] 08/04/2024 1:00 PM EDT Office Visit [facility] ADULT DENTAL 230 [place], [place] [phone] Brendan Duartearis 230 [place], [place] [phone] documented as of this encounter Visit Diagnoses Not on filedocumented in this encounter Care Teams Forge Shop Supervisor Relationship Specialty Start Date End Date Sariah Vickers ANP 230 [place] [address] PCP - General Family Medicine 09/23/19 documented as of this encounter
--- OUTSIDE RECORDS SUMMARY | 2024-04-20 16:03 | XMS_ITS | Encounter Summary ---
Author Organization [employer] Address 75 [facility] 7t [place] [address] Care Team Providers Care Mitigation Supervisor Name Role Phone Sariah Vickers Primary Care Provider [phone] Reason for Visit * Reason Comments Med Refill Encounter Details Date Type Department Care Team (Late Contact Info) Description 09/13/2022 Refill [facility] CHC MED & PEDS [address] [place] [address] Sariah Vickers ANP 230 [place] [address] Severe persistent allergic asthma without complication Social [...] Upcoming Encounters Date Type Department Care Team ([facility] Contact Info) Description 04/23/2024 11:30 AM EST Clinical Support [address] [address] Azeb Hall, RN 505 [place] [address] 04/29/2024 11:30 AM EDT Medication Management [address] [address] Yuri Pierre, MikeD [address] [place] [address] 07/15/2024 1:00 PM EDT Office Visit [address] [address] Sariah Vickers ANP [address] [place] [address] 08/04/2024 1:00 PM EDT Office Visit [facility] ADULT DENTAL [address] [place] [address] Nuvia Duarte [address] [place] [address] documented as of this encounter Visit Diagnoses Diagnosis Severe persistent allergic asthma without complication documented in this encounter Care Teams Mitigation Supervisor Relationship Specialty Start Date End Date Sariah Vickers ANP [address] [place] [address] PCP - General Family Medicine 09/23/19 documented as of this encounter
--- OUTSIDE RECORDS SUMMARY | 2024-04-20 16:03 | XMS_ITS | Encounter Summary ---
Author Organization [employer] [facility] Address [address] [place] [address] 7t [place] [address] Care Team Providers Care Service Unit Operator Name Role Phone Sariah Vickers Primary Care Provider [phone] Encounter Details Date Type Department Care Team (Latest Contact Info) Description 06/20/2021 Abstract [facility] CONVERSIONS Dental, Provider, DDS Social History [...] Description 04/23/2024 11:30 AM EST Clinical Support [facility] MEDICINE [address] [place] [address] Azeb Hall RN 505 [place] [address] 04/29/2024 11:30 AM EDT Medication Management [facility] MEDICINE [address] [place] [address] Yuri Pierre, PharmD [address] [place] [address] 07/15/2024 1:00 PM EDT Office Visit [facility] MEDICINE [address] [place] [address] Sariah Vickers ANP [address] [place] [address] 08/04/2024 1:00 PM EDT Office Visit [facility] ADULT DENTAL 230 [place], [place] [phone] Brendan Duartearis 230 [place], [place] [phone] documented as of this encounter Visit Diagnoses Not on filedocumented in this encounter Care Teams Service Unit Operator Relationship Specialty Start Date End Date Sariah Vickers ANP 230 [place] [address] PCP - General Family Medicine 09/23/19 documented as of this encounter
--- OUTSIDE RECORDS SUMMARY | 2024-04-20 16:03 | XMS_ITS | Encounter Summary ---
Author Organization [employer] Address 75 [facility] 7t [place] [address] Care Team Providers Care Chinese Instructor Name Role Phone Sariah Vickers Primary Care Provider Reason for Visit * Reason Comments Med Refill Encounter Details Date Type Department Care Team ([facility] st Contact Info) Description 12/17/2023 Refill [facility] MEDICINE 230 [place] [address] Saraih Vickers ANP 230 [place] [address] Chronic SI joint pain Social History Tobacco [...] Description 04/23/2024 11:30 AM EST Clinical Support [facility] MEDICINE [address] [place] [address] Azeb Hall RN 505 [place] [address] 04/29/2024 11:30 AM EDT Medication Management [address] [address] Yuri Pierre, PharmD [address] [place] [address] 07/15/2024 1:00 PM EDT Office Visit [facility] MEDICINE [address] [place] [address] Sariah Vickers ANP [address] [place] [address] 08/04/2024 1:00 PM EDT Office Visit [facility] ADULT DENTAL [address] [place] [address] Nuvia Duarte [address] [place] [address] documented as of this encounter Goals Goal Patient Goal Type Associated Problems Recent Progress Patient-Stated? Author Blood Pressure < 140/90 Blood Pressure 124/93(2024 11:36 AM EST) No Aida Ragland, PharmD Record Your [...] documented as of this encounter Care Teams Chinese Instructor Relationship Specialty Start Date End Date Sariah Vickers ANP [address] [place] [address] PCP - General Family Medicine 09/23/19 documented as of this encounter
--- OUTSIDE RECORDS SUMMARY | 2024-04-20 16:03 | XMS_ITS | Encounter Summary ---
Author Organization [employer] [facility] Address [address] [place] [address] 7t [place] [address] Care Team Providers Care Vice President Payer Name Role Phone Sariah Vickers Primary Care Provider [phone] Reason for Visit * Reason Comments Med Refill Encounter Details Date Type Department Care Team (Late st Contact Info) Description 03/26/2022 Refill [facility] MEDICINE [address] [place] [address] Sariah Vickers ANP 230 [place] [address] Social History Tobacco Use Types Packs/Day Years [...] Department Care Team (Late Contact Info) Description 04/23/2024 11:30 AM EST Clinical Support [facility] MEDICINE [address] [place] [address] Azeb Hall, RN 505 [place] [address] 04/29/2024 11:30 AM EDT Medication Management [address] [address] Yuri Pierre, MikeD [address] [place] [address] 07/15/2024 1:00 PM EDT Office Visit [facility] MEDICINE [address] [place] [address] Sariah Vickers ANP [address] [place] [address] 08/04/2024 1:00 PM EDT Office Visit [facility] ADULT DENTAL [address] [place] [address] Nuvia Duarte [address] [place] [address] documented as of this encounter Visit Diagnoses Not on filedocumented in this encounter Care Teams Vice President Payer Relationship Specialty Start Date End Date Sariah Vickers ANP [address] [place] [address] PCP - General Family Medicine 09/23/19 documented as of this encounter
--- OUTSIDE RECORDS SUMMARY | 2024-04-20 16:03 | XMS_ITS | Encounter Summary ---
Author Organization [employer] Address [address] [facility] [address] 7t [place] [address] Care Team Providers Care Public Safety Dispatcher Name Role Phone Sariah Vickers Primary Care Provider Reason for Visit * Reason Comments Med Refill Encounter Details Date Type Department Care Team ([facility] st Contact Info) Description 10/03/2023 Refill [facility] 230 [place] [address] Sariah Vickers ANP 230 [place] [address] Chronic SI joint pain Social History Tobacco [...] Description 04/23/2024 11:30 AM EST Clinical Support [facility] MEDICINE [address] [place] [address] Azeb Hall, MARTIN 505 [place] [address] 04/29/2024 11:30 AM EDT Medication Management [address] [address] Yuri Pierre, PharmD [address] [place] [address] 07/15/2024 1:00 PM EDT Office Visit [address] [address] Sariah Vickers ANP 230 [place] [address] 08/04/2024 1:00 PM EDT Office Visit [facility] ADULT DENTAL [address] [place] [address] Nuvia Duarte 230 [place] [address] documented as of this encounter Goals Goal [...] documented as of this encounter Care Teams Public Safety Dispatcher Relationship Specialty Start Date End Date Sariah Vickers ANP [address] [place] [address] PCP - General Family Medicine 09/23/19 documented as of this encounter
--- OUTSIDE RECORDS SUMMARY | 2024-04-20 16:03 | XMS_ITS | Encounter Summary ---
Author Organization [employer] Address [address] [place] [address] 7t [place] [address] Care Team Providers Care License Issuer Name Role Phone Sariah Vickers Primary Care Provider Reason for Visit * Reason Onset Date Comments Durable Medical Equipment 03/15/2022 Encounter Details Date Type Department Care Team (Late st Contact Info) Description 03/15/2022 Telephone [facility] MEDICINE 230 [place] [address] Sariah Vickers ANP 230 [place] [address] Durable Medical Equipment Social History Tobacco Use [...] Description 04/23/2024 11:30 AM EST Clinical Support [address] [address] Azeb Hall, RN 505 [place] [address] 04/29/2024 11:30 AM EDT Medication Management [address] [address] Yuri Pierre, PharmD [address] [place] [address] 07/15/2024 1:00 PM EDT Office Visit [facility] MEDICINE [address] [place] [address] Sariah Vickers ANP 230 [place] [address] 08/04/2024 1:00 PM EDT Office Visit [facility] ADULT DENTAL [address] [place] [address] Felicia, Nuvia 230 [place] [address] documented as of this encounter Visit Diagnoses Not on filedocumented in this encounter Care Teams License Issuer Relationship Specialty Start Date End Date Sariah Vickers ANP [address] [place] [address] PCP - General Family Medicine 09/23/19 documented as of this encounter
--- OUTSIDE RECORDS SUMMARY | 2024-04-20 16:03 | XMS_ITS | Encounter Summary ---
Author Organization [facility] Address [address] [place] [address] 7t [place] [address] Care Team Providers Care 6Th Grade Teacher Name Role Phone Sariah Vickers Primary Care Provider [phone] Reason for Visit * Reason Comments Med Refill Encounter Details Date Type Department Care Team (Late Contact Info) Description 02/06/2022 Refill [facility] MEDICINE [address] [place] [address] Sariah Vickers ANP 230 [place] [address] Social History Tobacco Use Types Packs/Day Years [...] 11:30 AM EST Clinical Support [facility] MEDICINE 230 [place] [address] Azeb Hall, RN 505 [place] [address] 04/29/2024 11:30 AM EDT Medication Management [address] [address] Yuri Pierre, MikeD [address] [place] [address] 07/15/2024 1:00 PM EDT Office Visit [facility] MEDICINE [address] [place] [address] Sariah Vickers ANP [address] [place] [address] 08/04/2024 1:00 PM EDT Office Visit [facility] ADULT DENTAL [address] [place] [address] Nuvia Duarte [address] [place] [address] documented as of this encounter Visit Diagnoses Not on filedocumented in this encounter Care Teams 6Th Grade Teacher Relationship Specialty Start Date End Date Sariah Vickers ANP [address] [place] [address] PCP - General Family Medicine 09/23/19 documented as of this encounter
--- OUTSIDE RECORDS SUMMARY | 2024-04-20 16:03 | XMS_ITS | Encounter Summary ---
Author Organization [employer] Address 75 [facility] 7t [place] [address] Care Team Providers Care Hearing Consultant Name Role Phone Sariah Vickers Primary Care Provider [phone] Reason for Visit * Reason Comments Med Refill Encounter Details Date Type Department Care Team ([facility] st Contact Info) Description 01/06/2024 Refill [facility] MED & PEDS [address] [place] [address] Sariah Vickers ANP 230 [place] [address] Cervicalgia Social History Tobacco Use Types Packs/Day [...] Description 04/23/2024 11:30 AM EST Clinical Support [facility] MEDICINE [address] [place] [address] Azeb Hall RN 505 [place] [address] 04/29/2024 11:30 AM EDT Medication Management [address] [address] Yuri Pierre, PharmD [address] [place] [address] 07/15/2024 1:00 PM EDT Office Visit [facility] MEDICINE [address] [place] [address] Sariah Vickers ANP [address] [place] [address] 08/04/2024 1:00 PM EDT Office Visit [facility] ADULT DENTAL [address] [place] [address] Nuvia Duarte [address] [place] [address] documented as of this encounter Goals Goal [...] documented as of this encounter Care Teams Hearing Consultant Relationship Specialty Start Date End Date Sariah Vickers ANP [address] [place] [address] PCP - General Family Medicine 09/23/19 documented as of this encounter
--- OUTSIDE RECORDS SUMMARY | 2024-04-20 16:03 | XMS_ITS | Encounter Summary ---
Author Organization [facility] Address [address] [place] [address] 7t [place] [address] Care Team Providers Care Blueprint Developer Name Role Phone Sariah Vickers ANP Primary Care Provider [phone] Encounter Details Date Type Department Care Team (Late st Contact Info) Description 01/09/2022 Abstract [facility] ADULT DENTAL 230 [place] [address] Dental, Provider, DDS Social History Tobacco Use [...] Description 04/23/2024 11:30 AM EST Clinical Support [facility] MEDICINE [address] [place] [address] Azeb Hall RN [address] [place] [address] 04/29/2024 11:30 AM EDT Medication Management [facility] MEDICINE [address] [place] [address] Yuri Pierre, PharmD 230 [place] [address] 07/15/2024 1:00 PM EDT Office Visit [facility] MEDICINE [address] [place] [address] Sariah Vickers ANP 230 [place] [address] 08/04/2024 1:00 PM EDT Office Visit [facility] ADULT DENTAL 230 [place] [address] Nuvia Duarte 230 [place] [address] documented as of this encounter Procedures Procedure Name Priority Date/Time Associated Diagnosis Comments 18,19,30,31 PARTIAL DENTURE Routine 01/09/2022 12:00 AM EST 3,5,12,14,15 PARTIAL DENTURE Routine 01/09/2022 12:00 AM EST 25 LI COMPOSITE FILLING Routine 01/10/20 12:00 AM EST 24 LEE COMPOSITE FILLING Routine 12:00 AM EST 23 LI COMPOSITE FILLING [...] on filedocumented in this encounter Care Teams Blueprint Developer Relationship Specialty Start Date End Date Sariah Vickers ANP 230 [place] [address] PCP - General Family Medicine 09/23/19 documented as of this encounter
--- OUTSIDE RECORDS SUMMARY | 2024-04-20 16:03 | XMS_ITS | Encounter Summary ---
Author Organization [employer] Address 75 [facility] 7t [place] [address] Care Team Providers Care Shed Workers Supervisor Name Role Phone Sariah Vickers Primary Care Provider [phone] Reason for Visit * Reason Comments Med Refill Encounter Details Date Type Department Care Team ([facility] st Contact Info) Description 01/04/2024 Refill [facility] CHC MED & PEDS [address] [place] [address] Sariah Vickers ANP 230 [place] [address] Cervicalgia Social History Tobacco Use Types Packs/Day [...] Description 04/23/2024 11:30 AM EST Clinical Support [facility] MEDICINE [address] [place] [address] Azeb Hall RN 505 [place] [address] 04/29/2024 11:30 AM EDT Medication Management [address] [address] Yuri Pierre, PharmD [address] [place] [address] 07/15/2024 1:00 PM EDT Office Visit [facility] MEDICINE [address] [place] [address] Sariah Vickers ANP [address] [place] [address] 08/04/2024 1:00 PM EDT Office Visit [facility] ADULT DENTAL [address] [place] [address] Nuvia Duarte [address] [place] [address] documented as of this encounter Goals Goal [...] documented as of this encounter Care Teams Shed Workers Supervisor Relationship Specialty Start Date End Date Sariah Vickers ANP [address] [place] [address] PCP - General Family Medicine 09/23/19 documented as of this encounter
--- OUTSIDE RECORDS SUMMARY | 2024-04-20 16:03 | XMS_ITS | Encounter Summary ---
Author Organization [employer] Address 75 [facility] 7t [place] [address] Care Team Providers Care Silver Wrapper Name Role Phone Sariah Vickers Primary Care Provider [phone] Reason for Visit * Reason Comments Med Refill Encounter Details Date Type Department Care Team ([facility] st Contact Info) Description 11/14/2023 Refill [facility] MEDICINE 230 [place] [address] Sariah Vickers ANP 230 [place] [address] Neck pain Social History Tobacco Use Types [...] Description 04/23/2024 11:30 AM EST Clinical Support [facility] MEDICINE [address] [place] [address] Azeb Hall RN 505 [place] [address] 04/29/2024 11:30 AM EDT Medication Management [address] [address] Yuri Pierre, PharmD [address] [place] [address] 07/15/2024 1:00 PM EDT Office Visit [facility] MEDICINE [address] [place] [address] Sariah Vickers ANP [address] [place] [address] 08/04/2024 1:00 PM EDT Office Visit [facility] ADULT DENTAL [address] [place] [address] Nuvia Duarte [address] [place] [address] documented as of this encounter Goals Goal Patient Goal Type Associated Problems Recent Progress Patient-Stated? Author Blood Pressure < 140/90 Blood Pressure 124/93(2024 11:36 AM EST) No Aida Ragland, PharmD Record Your Blood Sugar As Directed General No Aida Ragland, MikeD Hemoglobin A1c < 7 Result Component 6.6( 4 8:44 AM EST) No Aida Ragland PharmD documented as of this encounter Visit Diagnoses Diagnosis Neck pain Cervicalgia documented in this encounter Additional Health Concerns Assessment Noted Time PHQ-9 Depression Total Score: 12 024 2:58 PM EDT documented as of this encounter Care Teams Silver Wrapper Relationship Specialty Start Date End Date Sariah Vickers ANP [address] [place] [address] PCP - General Family Medicine 09/23/19 documented as of this encounter
--- OUTSIDE RECORDS SUMMARY | 2024-04-20 16:03 | XMS_ITS | Encounter Summary ---
Author Organization [employer] Address 75 [facility] 7t [place] [address] Care Team Providers Care Sand Caster Name Role Phone Sariah Vickers Primary Care Provider [phone] Reason for Visit * Reason Onset Date Comments Med Refill 02/04/2024 Encounter Details Date Type Department Care Team ([facility] st Contact Info) Description 02/04/2024 Telephone [facility] MEDICINE 230 [place] [address] Sariah Vickers ANP 230 [place] [address] Med Refill Social History Tobacco Use Types [...] 50 MG tablet To be sent to: [facility] - [place], [place] - [address] [place] [address] documented in this encounter Plan of Treatment Upcoming Encounters Date Type Department Care Team (Late st Contact Info) Description 04/23/2024 11:30 AM EST Clinical Support [facility] MEDICINE [address] [place] [address] Azeb Hall, RN 505 [place] [address] 04/29/2024 11:30 AM EDT Medication Management [address] [address] Yuri Pierre, PharmD [address] [place] [address] 07/15/2024 1:00 PM EDT Office Visit [facility] MEDICINE [address] [place] [address] Sariah Vickers, ANP [address] [place] [address] 08/04/2024 1:00 PM EDT Office Visit [facility] ADULT DENTAL 230 [place] [address] Nuvia Duarte 230 [place] [address] documented as of this encounter Goals Goal Patient Goal Type Associated Problems Recent Progress Patient-Stated? Author Blood Pressure < 140/90 Blood Pressure 124/93(2024 11:36 AM EST) No Phanis-Gambl Veronica urbinasa, PharmD Record Your Blood Sugar As Directed General No Phanis-Gambl e Aida, PharmD Hemoglobin A1c < 7 Result Component 6.6( 8:44 AM EST) No Piers-Gambl Aida urbina PharmD documented as of this encounter Visit Diagnoses Not on filedocumented in this encounter Additional Health Concerns Assessment Noted Time PHQ-9 Depression Total Score: 12 09/30/ 024 2:58 PM EDT documented as of this encounter Care Teams Sand Caster Relationship Specialty Start Date End Date Sariah Vickers ANP 230 [place] [address] PCP - General Family Medicine 09/23/19 documented as of this encounter
--- OUTSIDE RECORDS SUMMARY | 2024-04-20 16:03 | XMS_ITS | Encounter Summary ---
Author Organization [employer] Address [address] [facility] [address] 7t [place] [address] Care Team Providers Care Activity Aid Name Role Phone Sariah Vickers Primary Care Provider [phone] Reason for Visit * Reason Comments Med Refill Patient walked [facility] pharmacy hasn't finished her Medbox due to missing refill for medication Gabapetin . Encounter Details Date Type Department Care Team ([facility] st Contact Info) Description 10/03/2023 Refill [facility] 230 [place], [place] [phone] Sariah Vickers ANP 230 [place] [address] Chronic SI joint pain Social History Tobacco [...] Description 04/23/2024 11:30 AM EST Clinical Support [facility] MEDICINE [address] [place] [address] Azeb Hall, RN 505 [place] [address] 04/29/2024 11:30 AM EDT Medication Management [facility] MEDICINE [address] [place] [address] Yuri Pierre, PharmD [address] [place] [address] 07/15/2024 1:00 PM EDT Office Visit [facility] MEDICINE [address] [place] [address] Sariah Vickers, ANP [address] [place] [address] 08/04/2024 1:00 PM EDT Office Visit [facility] ADULT DENTAL 230 [place] [address] Nuvia Duarte 230 [place] [address] documented as of this encounter Goals Goal Patient Goal Type Associated Problems Recent Progress Patient-Stated? Author Blood Pressure < 140/90 Blood Pressure 124/93(2024 11:36 AM EST) No Piers-Gambl e, Aida, PharmD Record Your Blood Sugar As Directed General No Piers-Gambl e, Aida, PharmD Hemoglobin A1c < 7 Result Component 6.6( 8:44 AM EST) No Piers-Gambl eAida, PharmD documented as of this encounter Visit Diagnoses Diagnosis Chronic SI joint pain Disorders of sacrum documented in this encounter Additional Health Concerns Assessment Noted Time PHQ-9 Depression Total Score: 12 08/ 024 2:58 PM EDT documented as of this encounter Care Teams Activity Aid Relationship Specialty Start Date End Date Sariah Vickers ANP 230 [place] [address] PCP - General Family Medicine 09/23/19 documented as of this encounter
--- OUTSIDE RECORDS SUMMARY | 2024-04-20 16:03 | XMS_ITS | Encounter Summary ---
Author Organization [employer] Address 75 [facility] 7t [place] [address] Care Team Providers Care Look Out Tower Fire Watcher Name Role Phone Sariah Vickers Primary Care Provider [phone] Reason for Visit * Reason Onset Date Comments Med Refill 01/09/2024 Encounter Details Date Type Department Care Team ([facility] st Contact Info) Description 01/09/2024 Telephone [facility] MEDICINE 230 [place] [address] Sariah Vickers ANP 230 [place] [address] Med Refill Social History Tobacco Use Types [...] Description 04/23/2024 11:30 AM EST Clinical Support [facility] MEDICINE [address] [place] [address] Azeb Hall, RN 505 [place] [address] 04/29/2024 11:30 AM EDT Medication Management [address] [address] Yuri Pierre, PharmD [address] [place] [address] 07/15/2024 1:00 PM EDT Office Visit [facility] MEDICINE [address] [place] [address] Sariah Vickers ANP 230 [place] [address] 08/04/2024 1:00 PM EDT Office Visit [facility] ADULT DENTAL [address] [place] [address] Nuvia Duarte 230 [place] [address] documented as of this encounter Goals Goal [...] documented as of this encounter Care Teams Look Out Tower Fire Watcher Relationship Specialty Start Date End Date Sariah Vickers ANP [address] [place] [address] PCP - General Family Medicine 09/23/19 documented as of this encounter
--- OUTSIDE RECORDS SUMMARY | 2024-04-20 16:03 | XMS_ITS | Encounter Summary ---
Author Organization [employer] Address 75 [facility] 7t [place] [address] Care Team Providers Care Mac Artist Name Role Phone Sariah Vickers Primary Care Provider [phone] Reason for Visit * Reason Comments Med Refill Encounter Details Date Type Department Care Team ([facility] st Contact Info) Description 11/26/2023 Refill [facility] MEDICINE 230 [place] [address] Sariah Vickers ANP 230 [place] [address] Vertigo Social History Tobacco Use Types Packs/Day [...] Description 04/23/2024 11:30 AM EST Clinical Support [facility] MEDICINE [address] [place] [address] Azeb Hall RN 505 [place] [address] 04/29/2024 11:30 AM EDT Medication Management [address] [address] Yuri Pierre, PharmD [address] [place] [address] 07/15/2024 1:00 PM EDT Office Visit [facility] MEDICINE [address] [place] [address] Sariah Vickers ANP [address] [place] [address] 08/04/2024 1:00 PM EDT Office Visit [facility] ADULT DENTAL [address] [place] [address] Nuvia Duarte [address] [place] [address] documented as of this encounter Goals Goal [...] documented as of this encounter Care Teams Mac Artist Relationship Specialty Start Date End Date Sariah Vickers ANP [address] [place] [address] PCP - General Family Medicine 09/23/19 documented as of this encounter
--- OUTSIDE RECORDS SUMMARY | 2024-04-20 16:03 | XMS_ITS | Encounter Summary ---
Author Organization [facility] Address [address] [place] [address] 7t [place] [address] Care Team Providers Care Copyholder Name Role Phone Sariah Vickers Primary Care Provider [phone] Encounter Details Date Type Department Care Team (Latest Contact Info) Description 04/14/2020 Abstract [facility] CONVERSIONS Dental, Provider, DDS Social History Tobacco [...] Description 04/23/2024 11:30 AM EST Clinical Support [facility] MEDICINE [address] [place] [address] Azeb Hall RN 505 [place] [address] 04/29/2024 11:30 AM EDT Medication Management [facility] MEDICINE [address] [place] [address] Yuri Pierre, PharmD [address] [place] [address] 07/15/2024 1:00 PM EDT Office Visit [facility] MEDICINE [address] [place] [address] Sariah Vickers ANP [address] [place] [address] 08/04/2024 1:00 PM EDT Office Visit [facility] ADULT DENTAL 230 [place], [place] [phone] Brendan Duartearis 230 [place], [place] [phone] documented as of this encounter Visit Diagnoses Not on filedocumented in this encounter Care Teams Copyholder Relationship Specialty Start Date End Date Sariah Vickers ANP 230 [place] [address] PCP - General Family Medicine 09/23/19 documented as of this encounter
--- OUTSIDE RECORDS SUMMARY | 2024-04-20 16:03 | XMS_ITS | Encounter Summary ---
Author Organization [employer] Address [address] [facility] [address] 7t [place] [address] Care Team Providers Care Multimedia Author Name Role Phone Sariah Vickers Primary Care Provider [phone] Reason for Visit * Reason Comments Med Refill Encounter Details Date Type Department Care Team ([facility] st Contact Info) Description 10/03/2023 Refill [facility] 230 [place] [address] Sariah Vickers ANP 230 [place] [address] Chronic SI joint pain Social History Tobacco [...] 11:30 AM EST Clinical Support [facility] MEDICINE [address] [place] [address] Azeb Hall, MARTIN 505 [place] [address] 04/29/2024 11:30 AM EDT Medication Management [address] [address] Yuri Pierre, PharmD [address] [place] [address] 07/15/2024 1:00 PM EDT Office Visit [address] [address] Sariah Vickers ANP 230 [place] [address] 08/04/2024 1:00 PM EDT Office Visit [facility] ADULT DENTAL [address] [place] [address] Nuvia Duarte 230 [place] [address] documented as of this encounter Goals Goal [...] documented as of this encounter Care Teams Multimedia Author Relationship Specialty Start Date End Date Sariah Vickers ANP [address] [place] [address] PCP - General Family Medicine 09/23/19 documented as of this encounter
--- OUTSIDE RECORDS SUMMARY | 2024-04-20 16:03 | XMS_ITS | Encounter Summary ---
Author Organization [employer] Address 75 [facility] 7t [place] [address] Care Team Providers Care Recycling Coordinator Name Role Phone Sariah Vickers Primary Care Provider [phone] Reason for Visit * Reason Comments Med Refill Encounter Details Date Type Department Care Team ([facility] st Contact Info) Description 10/24/2023 Refill [facility] MEDICINE 230 [place] [address] Sariah Vickers ANP 230 [place] [address] Neck pain Social History Tobacco Use Types [...] Description 04/23/2024 11:30 AM EST Clinical Support [facility] MEDICINE [address] [place] [address] Azeb Hall RN 505 [place] [address] 04/29/2024 11:30 AM EDT Medication Management [address] [address] Yuri Pierre, PharmD [address] [place] [address] 07/15/2024 1:00 PM EDT Office Visit [facility] MEDICINE [address] [place] [address] Sariah Vickers ANP [address] [place] [address] 08/04/2024 1:00 PM EDT Office Visit [facility] ADULT DENTAL [address] [place] [address] Nuvia Duarte [address] [place] [address] documented as of this encounter Goals Goal [...] documented as of this encounter Care Teams Recycling Coordinator Relationship Specialty Start Date End Date Sariah Vickers ANP [address] [place] [address] PCP - General Family Medicine 09/23/19 documented as of this encounter
--- OUTSIDE RECORDS SUMMARY | 2024-04-20 16:03 | XMS_ITS | Encounter Summary ---
Author Organization [employer] Address 75 [facility] 7t [place] [address] Care Team Providers Care Tip Banding 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 Name Role Phone Sariah Vickers Primary Care Provider Reason for Visit * Reason Comments Med Refill Encounter Details Date Type Department Care Team ([facility] st Contact Info) Description 10/17/2023 Refill [facility] MEDICINE 230 [place] [address] Sariah Vickers ANP 230 [place] [address] Neck pain Social History Tobacco Use Types [...] Description 04/23/2024 11:30 AM EST Clinical Support [facility] MEDICINE [address] [place] [address] Azeb Hall RN 505 [place] [address] 04/29/2024 11:30 AM EDT Medication Management [address] [address] Yuri Pierre, PharmD [address] [place] [address] 07/15/2024 1:00 PM EDT Office Visit [facility] MEDICINE [address] [place] [address] Sariah Vickers ANP [address] [place] [address] 08/04/2024 1:00 PM EDT Office Visit [facility] ADULT DENTAL [address] [place] [address] Nuvia Duarte [address] [place] [address] documented as of this encounter Goals Goal [...] documented as of this encounter Care Teams Tip Banding 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 Relationship Specialty Start Date End Date Sariah Vickers ANP [address] [place] [address] PCP - General Family Medicine 09/23/19 documented as of this encounter
--- OUTSIDE RECORDS SUMMARY | 2024-04-20 16:03 | XMS_ITS | Encounter Summary ---
Author Organization [facility] Address [address] [place] [address] 7t [place] [address] Care Team Providers Care Public Area Attendant Name Role Phone Sariah Vickers Primary Care Provider [phone] Reason for Visit * Reason Comments Med Refill Encounter Details Date Type Department Care Team (Late st Contact Info) Description 03/03/2022 Refill [facility] [address] [place] [address] Sariah Vickers ANP 230 [place] [address] Social History Tobacco Use Types Packs/Day Years [...] Description 04/23/2024 11:30 AM EST Clinical Support [address] [address] Azeb Hall, RN 505 [place] [address] 04/29/2024 11:30 AM EDT Medication Management [address] [address] Yuri Pierre, PharmD [address] [place] [address] 07/15/2024 1:00 PM EDT Office Visit [address] [address] Sariah Vickers ANP [address] [place] [address] 08/04/2024 1:00 PM EDT Office Visit [facility]ULT D[facility]AL [address] [place] [address] Felicia, Nuvia [address] [place] [address] documented as of this encounter Visit Diagnoses Not on filedocumented in this encounter Care Teams Public Area Attendant Relationship Specialty Start Date End Date Sariah Vickers ANP [address] [place] [address] PCP - General Family Medicine 09/23/19 documented as of this encounter
--- OUTSIDE RECORDS SUMMARY | 2024-04-20 16:03 | XMS_ITS | Encounter Summary ---
Author Organization [facility] Address [address] [place] [address] 7t [place] [address] Care Team Providers Care Health And Safety Representative Name Role Phone Sariah Vickers Primary Care Provider [phone] Encounter Details Date Type Department Care Team ([facility] Contact Info) Description 02/05/2022 Abstract [facility] MEDICINE [address] [place] [address] Sariah Vickers ANP 230 [place] [address] Social History Tobacco Use Types Packs/Day Years [...] Description 04/23/2024 11:30 AM EST Clinical Support [facility] [address] [place] [address] Azeb Hall, RN 505 [place] [address] 04/29/2024 11:30 AM EDT Medication Management [facility] [address] [place] [address] Yuri Pierre, Dileep [address] [place] [address] 07/15/2024 1:00 PM EDT Office Visit [facility] [address] [place] [address] Sariah Vickers ANP [address] [place] [address] 08/04/2024 1:00 PM EDT Office Visit [facility] ADULT DENTAL [address] [place] [address] Nuvia Duarte [address] [place] [address] documented as of this encounter Visit Diagnoses Not on filedocumented in this encounter Care Teams Health And Safety Representative Relationship Specialty Start Date End Date Sariah Vickers ANP [address] [place] [address] PCP - General Family Medicine 09/23/19 documented as of this encounter
--- OUTSIDE RECORDS SUMMARY | 2024-04-20 16:03 | XMS_ITS | Encounter Summary ---
Author Organization [employer] Address [address] [facility] 7t [place] [address] Care Team Providers Care Incinerator Attendant Name Role Phone Sariah Vickers Primary Care Provider [phone] Reason for Visit * Reason Comments Med Refill Encounter Details Date Type Department Care Team ([facility] st Contact Info) Description 08/22/2023 Refill [facility] 230 [place] [address] Sariah Vickers ANP 230 [place] [address] Neck pain Social History Tobacco Use Types [...] Description 04/23/2024 11:30 AM EST Clinical Support [facility] [address] [place] [address] Azeb Hall RN 505 [place] [address] 04/29/2024 11:30 AM EDT Medication Management [address] [address] Yuri Pierre, PharmD [address] [place] [address] 07/15/2024 1:00 PM EDT Office Visit [facility] [address] [place] [address] Sariah Vickers ANP [address] [place] [address] 08/04/2024 1:00 PM EDT Office Visit [facility] ADULT D[facility] [address] [place] [address] Nuvia Duarte [address] [place] [address] documented as of this encounter Goals Goal [...] documented as of this encounter Care Teams Incinerator Attendant Relationship Specialty Start Date End Date Sariah Vickers ANP [address] [place] [address] PCP - General Family Medicine 09/23/19 documented as of this encounter
--- OUTSIDE RECORDS SUMMARY | 2024-04-20 16:03 | XMS_ITS | Encounter Summary ---
Author Organization [employer] Address [address] [facility] 7t [place] [address] Care Team Providers Care Client Relations Representative Name Role Phone Sariah Vickers Primary Care Provider [phone] Reason for Visit * Reason Comments Med Refill Encounter Details Date Type Department Care Team ([facility] st Contact Info) Description 03/09/2024 Refill [facility] PEDS [address] [place] [address] Sariah Vickers ANP 230 [place] [address] Neck pain Social History Tobacco Use Types [...] Description 04/23/2024 11:30 AM EST Clinical Support [facility] [address] [place] [address] Azeb Hall RN 505 [place] [address] 04/29/2024 11:30 AM EDT Medication Management [address] [address] Yuri Pierre, PharmD [address] [place] [address] 07/15/2024 1:00 PM EDT Office Visit [facility] [address] [place] [address] Sariah Vickers ANP [address] [place] [address] 08/04/2024 1:00 PM EDT Office Visit [facility] ADULT DENTAL [address] [place] [address] Nuvia Duarte [address] [place] [address] documented as of this encounter Goals Goal [...] documented as of this encounter Care Teams Client Relations Representative Relationship Specialty Start Date End Date Sariah Vickers ANP [address] [place] [address] PCP - General Family Medicine 09/23/19 documented as of this encounter
--- OUTSIDE RECORDS SUMMARY | 2024-04-20 16:03 | XMS_ITS | Encounter Summary ---
Author Organization [employer] Address [address] [facility] 7t [place] [address] Care Team Providers Care Rn Clinical Research Name Role Phone Sariah Vickers Primary Care Provider [phone] Reason for Visit * Reason Comments Med Refill Encounter Details Date Type Department Care Team ([facility] st Contact Info) Description 11/24/2023 Refill [facility] 230 [place] [address] Sariah Vickers ANP 230 [place] [address] Vertigo Social History Tobacco Use Types Packs/Day [...] Description 04/23/2024 11:30 AM EST Clinical Support [facility] [address] [place] [address] Azeb Hall RN 505 [place] [address] 04/29/2024 11:30 AM EDT Medication Management [address] [address] Yuri Pierre, PharmD [address] [place] [address] 07/15/2024 1:00 PM EDT Office Visit [facility] [address] [place] [address] Sariah Vickers ANP [address] [place] [address] 08/04/2024 1:00 PM EDT Office Visit [facility] ADULT DENTAL [address] [place] [address] Nuvia Duarte [address] [place] [address] documented as of this encounter Goals Goal Patient Goal Type Associated Problems Recent Progress Patient-Stated? Author Blood Pressure < 140/90 Blood Pressure 124/93(2024 11:36 AM EST) No Aida Ragland, PharmD Record Your Blood Sugar As Directed General No Aida Ralgand PharmD Hemoglobin A1c < 7 Result Component 6.6( 4 8:44 AM EST) No Aida Ragland PharmD documented as of this encounter Visit Diagnoses Diagnosis Vertigo Dizziness and giddiness documented in this encounter Additional Health Concerns Assessment Noted Time PHQ-9 Depression Total Score: 12 024 2:58 PM EDT documented as of this encounter Care Teams Rn Clinical Research Relationship Specialty Start Date End Date Sariah Vickers ANP [address] [place] [address] PCP - General Family Medicine 09/23/19 documented as of this encounter
--- OUTSIDE RECORDS SUMMARY | 2024-04-20 16:03 | XMS_ITS | Encounter Summary ---
Author Organization [facility] Address [address] [place] [address] 7t [place] [address] Care Team Providers Care Battery Starter Name Role Phone Sariah Vickers Primary Care Provider [phone] Reason for Visit * Reason Onset Date Comments Nurse Triage 11/01/2022 Encounter Details Date Type Department Care Team (Late st Contact Info) Description 11/01/2022 Telephone [facility] MEDICINE 230 [place] [address] Sariah Vickers ANP 230 [place] [address] Nurse Triage Social History Tobacco Use Types [...] 11/01/2022 3:51 PM EDT Triage call with [employer] Networking Engineer [place] [id number] Pt reports blood sugars have been high [...] Description 04/23/2024 11:30 AM EST Clinical Support [address] [address] Azeb Hall, RN 505 [place] [address] 04/29/2024 11:30 AM EDT Medication Management [address] [address] Yuri Pierre, PharmD [address] [place] [address] 07/15/2024 1:00 PM EDT Office Visit [address] [address] Sariah Vickers, ANP [address] [place] [address] 08/04/2024 1:00 PM EDT Office Visit [facility] ADULT DENTAL 230 [place] [address] Nuvia Duarte 230 [place] [address] documented as of this encounter Goals Goal [...] on filedocumented in this encounter Care Teams Battery Starter Relationship Specialty Start Date End Date Sariah Vickers ANP 230 [place] [address] PCP - General Family Medicine 09/23/19 documented as of this encounter
--- OUTSIDE RECORDS SUMMARY | 2024-04-20 16:03 | XMS_ITS | Encounter Summary ---
Author Organization [employer] Address [address] [facility] 7t [place] [address] Care Team Providers Care Leather Heel Breaster Name Role Phone Sariah Vickers Primary Care Provider [phone] Reason for Visit * Reason Onset Date Comments Med Refill 09/18/2023 Encounter Details Date Type Department Care Team (Late st Contact Info) Description 09/18/2023 Telephone [facility] MEDICINE 230 [place] [address] Sariah Vickers ANP 230 [place] [address] Med Refill Social History Tobacco Use Types [...] refill : Tramadol To be sent to: [facility] - [place], [place] - [address] [place] [address] documented in this encounter Plan of Treatment Upcoming Encounters Date Type Department Care Team ([facility] st Contact Info) Description 04/23/2024 11:30 AM EST Clinical Support [facility] MEDICINE [address] [place] [address] Azeb Hall, RN 505 [place] [address] 04/29/2024 11:30 AM EDT Medication Management [facility] MEDICINE [address] [place] [address] Yuri Pierre, PharmD [address] [place] [address] 07/15/2024 1:00 PM EDT Office Visit [facility] MEDICINE [address] [place] [address] Sariah Vickers, ANP [address] [place] [address] 08/04/2024 1:00 PM EDT Office Visit [facility] ADULT DENTAL 230 [place] [address] Nuvia Duarte [address] [place] [address] documented as of this encounter Goals Goal Patient Goal Type Associated Problems Recent Progress Patient-Stated? Author Blood Pressure < 140/90 Blood Pressure 124/93(2024 11:36 AM EST) No Phanis-Gambl eVeronicasa, PharmD Record Your Blood Sugar As Directed General No Piers-Gambl e, Aida, PharmD Hemoglobin A1c < 7 Result Component 6.6( 8:44 AM EST) No Phanis-GambAida buck, PharmD documented as of this encounter Visit Diagnoses Not on filedocumented in this encounter Additional Health Concerns Assessment Noted Time PHQ-9 Depression Total Score: 2 06/23/19 24 2:10 PM EDT documented as of this encounter Care Teams Leather Heel Breaster Relationship Specialty Start Date End Date Sariah Vickers ANP 230 [place] [address] PCP - General Family Medicine 09/23/19 documented as of this encounter
--- OUTSIDE RECORDS SUMMARY | 2024-04-20 16:03 | XMS_ITS | Encounter Summary ---
Author Organization [employer] Address [address] [facility] 7t [place] [address] Care Team Providers Care Director Digital Marketing Name Role Phone Sariah Vickers Primary Care Provider [phone] Reason for Visit * Reason Comments Med Refill Encounter Details Date Type Department Care Team ([facility] st Contact Info) Description 01/06/2024 Refill [facility] MED & PEDS [address] [place] [address] Sariah Vickers ANP 230 [place] [address] Cervicalgia Social History Tobacco Use Types Packs/Day [...] Description 04/23/2024 11:30 AM EST Clinical Support [facility] MEDICINE [address] [place] [address] Azeb Hall RN 505 [place] [address] 04/29/2024 11:30 AM EDT Medication Management [address] [address] Yuri Pierre, PharmD [address] [place] [address] 07/15/2024 1:00 PM EDT Office Visit [facility] MEDICINE [address] [place] [address] Sariah Vickers ANP [address] [place] [address] 08/04/2024 1:00 PM EDT Office Visit [facility] ADULT DENTAL [address] [place] [address] Nuvia Duarte [address] [place] [address] documented as of this encounter Goals Goal [...] as of this encounter Care Teams Director Digital Marketing Relationship Specialty Start Date End Date Sariah Vickers ANP [address] [place] [address] PCP - General Family Medicine 09/23/19 documented as of this encounter
--- OUTSIDE RECORDS SUMMARY | 2024-04-20 16:03 | XMS_ITS | Clinical Summary ---
Author Organization [employer] Address [address] [facility] 7[address] [place] [address] Care Team Providers Care Marketing Analyst Name Role Phone Anthony Ruiz Primary Care Provider [phone] Allergies Active Allergy Reactions Criticality Noted Date [...] the morning. Active Blood Glucose Monitoring Suppl ([employer] Lite) w/Device kit USE DIRECTED 023 Active Lactobacillus-In ulin ([facility] [place] [facility]) capsule TAKE 1 CAPSULE BY MOUTH EVERY [...] neuropathy, with long-term current use of insulin ([facility]) USE 1 SPRAY (3MG) IN ONE NOSTRIL [...] ions:Type 2 diabetes mellitus with hyperlipidemia (CMS/HCC) ([facility]) Inject 2 Units under the skin with breakfast, with lunch, and with evening meal. As needed as directed by provider 6 mL Active TechLite Plus Pen [place] 32G X 4 MM miscIndications: Type 2 diabetes mellitus with hyperlipidemia (CMS/HCC) ([facility]) USE DIRECTED THREE TIMES DAILY 100 each [...] s:Type 2 diabetes mellitus with hyperlipidemia (CMS/HCC) ([facility]) CHEW 4 TABLETS BY MOUTH NEEDED LOW FOR BLOOD SUGAR 50 tablet Active Ozempic, 0.25 or 0.5 MG/DOSE, 2 MG/3ML solution pen-injectorIndi cations:Type 2 diabetes mellitus with hyperlipidemia (CMS/HCC) ([facility]) INJECT 0.5 MG SUBCUTANEOUSLY EVERY 7 DAYS [...] EVERY MORNING 90 tablet 3 024 Active fluticasone (Flonase) 50 MCG/ACT nasal spray [...] miscIndications: Type 2 diabetes mellitus with hyperlipidemia ([facility]/HCC) ([facility]) Apply 1 sensor every 14 days 2 each 025 Active traMADol (Ultram) 50 MG tabletIndication s:Cervicalgia TAKE 1 TABLET BY MOUTH EVERY TWELVE HOURS NEEDED FOR SEVERE PAIN 60 tablet 025 Active Continuous Glucose [employer] (FreeStyle Jalil 2 [place]) deviceIndication s:Type 2 diabetes mellitus with hyperlipidemia (CMS/HCC) ([facility]) Use to check blood sugar at least [...] HOURS DIRECTED 30 patch 1 025 Active ipratropium-albu terol (Duo-Neb) 0.5-2.5 mg/3 mL nebulizer solutionIndicati ons:Severe persistent asthma without complication INHALE 1 AMPULE USING A NEBULIZER EVERY 6 HOURS NEEDED 90 mL 5 025 Active acetaminophen (Tylenol) 325 MG tabletIndication s:Neck pain TAKE 1 TO 2 TABLETS BY MOUTH EVERY 6 HOURS NEEDED 60 tablet 025 Active methylPREDNISolo ne (Medrol Dospak) 4 MG tablets Follow schedule on package instructions 21 tablet 025 2024 Active Continuous Glucose [employer] (FreeStyle Jalil 2 [place]) device Use to check blood sugar at [...] NEEDED 120 tablet 1 024 2024 Discontinued ipratropium-albu terol (Duo-Neb) 0.5-2.5 mg/3 mL nebulizer solutionIndicati ons:Severe persistent asthma without complication INHALE 1 AMPULE USING A NEBULIZER EVERY 6 HOURS NEEDED 90 mL 5 025 2024 Discontinued traMADol (Ultram) 50 MG tabletIndication s:Cervicalgia TAKE 1 TABLET BY MOUTH EVERY TWELVE HOURS NEEDED FOR SEVERE PAIN 60 tablet 025 2024 Discontinued acetaminophen (Tylenol) 325 MG tabletIndication s:Neck pain TAKE 1 TO 2 TABLETS BY MOUTH EVERY 6 HOURS NEEDED 120 tablet 1 025 2024 Discontinued(R eorder (will not trigger notification to Pharmacy)) Active Problems Problem Noted Date Diagnosed Date [...] her family. She will continue services with [facility] for OP therapy and psychiatry services. clinician will be available if needed during next medical appointment. PLAN: (check all that apply) Continue with current services (defined as services in the past 12 months) . Pt is engaged with OP therapy and psychiatry services with [facility] @ [facility] Excessive attrition of teeth, generalized [...] her family. She will continue services with [facility] for OP therapy and psychiatry services. clinician will be available if needed during next medical appointment. PLAN: (check all that apply) Continue with current services (defined as services in the past 12 months) . Pt is engaged with OP therapy and psychiatry services with [facility] @ [facility] Fibromyalgia 07/31/2022 Right foot pain [...] for possible plantar fasciitis -referred today to documentation improvement specialist x ongoing discomfort -may need orthopedic shoes [...] individual therapy and psychiatry with N at [facility]. Sees psych provider every two months and therapist bi-weekly. Pt will reach out to clinician as needed. Assessment & Plan (04/10/2023 11:08 AM EST): PLAN: (check all that apply) Behavioral Health Integration Plan Patient Self Plan Patient to reach out to [facility] team as needed Assessment & Plan [...] healthy manner PLAN: 1. Follow up with [facility]: Not recommended for follow-up 2. Patient goal is: reduce anxiousness 3. Behavioral Recommendations a. Patient will comply with medication b. Patient may request to speak with a [facility] during next PCP visit, if needed Chronic [...] Encounters Date Type Department Care Team Description 04/20/2024 11:00 AM EST Office Visit [facility] [address] [place] [address] [phone] Chava Presley MD Posterior chest pain (Primary Dx); Asthma-COPD overlap syndrome (CMS/HCC); Neck pain 04/20/2024 Orders Only [facility] [address] [place] [address] [phone] Chava Presley MD 04/15/2024 1:30 PM EST Office Visit [facility] [address] [place] [address] [phone] Anthony Ruiz ANP Umbilical hernia without obstruction and without gangrene (Primary Dx); Type 2 diabetes mellitus with hyperlipidemia (CMS/HCC) (CMS/HCC); Acute cough 04/15/2024 Travel 04/12/2024 Orders Only [facility] External Provider, [facility] 04/12/2024 Telephone [facility] [address] [place] [address] [phone] Anthony Ruiz ANP Chart Prep 04/06/2024 Telephone [facility] [address] [place] [address] 13491 Anthony Ruiz ANP Nurse Triage 04/06/2024 Refill [facility] [address] [place] [address] [phone] Anthony Ruiz ANP Severe persistent asthma without complication 04/02/2024 Refill [facility] [address] [place] [address] Anthony Ruiz ANP Neck pain 04/02/2024 Refill [facility] [address] [place] [address] [phone] Anthony Ruiz ANP Essential hypertension; Chronic SI joint pain; Chronic bilateral low back pain, unspecified whether sciatica present 04/01/2024 Refill [facility] [address] [place] [address] 22673 Anthony Ruiz ANP Type 2 diabetes mellitus with hyperlipidemia (CMS/HCC) (CMS/HCC) (Primary Dx) 03/29/2024 Telephone [facility] [address] [place] [address] [phone] Candy Bains, ASSET ADMINISTRATOR Follow-up 03/29/2024 Orders Only [facility] [address] [place] [address] [phone] Anthony Ruiz ANP 03/28/2024 Refill [facility] [address], [place] [phone] Anthony Ruiz ANP Cervicalgia 03/20/2024 Orders Only GENERIC EXTERNAL DATA DEPARTMENT Provider, Generic External Data 03/18/2024 Orders Only [facility] [address] [place] [address] [phone] Waldo Rojas MD Essential hypertension (Primary Dx) 03/17/2024 1:30 PM EST Office Visit [address] [address] Anthony Ruiz ANP Type 2 diabetes mellitus with hyperlipidemia (CMS/HCC) (Primary Dx); Abscess 03/17/2024 Telephone [facility] [address] [place] [address] [phone] Anthony Ruiz ANP 03/17/2024 Travel 03/15/2024 Telephone [facility] [address] [place] [address] [phone] Candy Bains, RN Paperwork/Forms 03/13/2024 Refill [facility] [address] [place] [address] [phone] Anthony Ruiz ANP Severe persistent asthma without complication 03/12/2024 Telephone [facility] [address] [place] [address] 76466 Anthony Ruiz ANP status check abscess 03/09/2024 Refill [facility] [address] [place] [address] Anthony Ruiz ANP Neck pain 03/03/2024 3:30 PM EST Office Visit [facility] [address] [place] [address] [phone] Anthony Ruiz ANP Panniculitis affecting sacrum (Primary Dx); Abscess; Spondylosis of lumbar region without myelopathy or radiculopathy 03/03/2024 Travel 03/03/2024 Refill [facility] [address] [place] [address] [phone] Anthony Ruiz ANP 03/02/2024 Telephone [facility] [address] [place] [address] 47871 Day Pool [place] chart prep 03/01/2024 Telephone [facility] [address] [place] [address] 52706 Anthony Ruiz ANP Durable Medical Equipment 03/01/2024 Refill [facility] [address] [place] [address] Anthony Ruiz ANP Cervicalgia 02/23/2024 2:00 PM EST Office Visit [facility] [address] [place] [address] 48531 Marianna Manzo MD Panniculitis affecting sacrum (Primary Dx) 02/23/2024 Telephone [facility] [address] [place] [address] 38886 Anthony Ruiz ANP Nurse Triage 02/20/2024 Refill [facility] [address] [place] [address] [phone] Anthony Ruiz ANP Severe persistent asthma without complication 02/19/2024 Orders Only GENERIC EXTERNAL DATA DEPARTMENT Provider, Generic External Data 02/16/[address] [address] Batsheva Baker [place] March recall 02/16/[address] [address] Anthony Ruiz ANP Med Refill 02/15/2024 Refill [facility] [address] [place] [address] Anthony Ruiz ANP Healthcare maintenance; Neck pain 02/13/2024 11:00 AM EST Office Visit [facility] [address] [place] [address] [phone] Chava Presley MD Asthma-COPD overlap syndrome (CMS/HCC) (Primary Dx); COPD with asthma (CMS/HCC) 02/13/2024 Telephone [facility] [address] [place] [address] 52836 Anthony Ruiz ANP Med Refill 02/13/2024 Telephone [facility] [address] [place] [address] Vicenta Constantino, [facility] triage (Saw [facility] pulmonology 02/03/24:/Assessment:/ Asthma-COPD overlap syndrome/ chronic obstructive pulmonary disease / Plan: /Well controlled on current regimen of Xolair, Advair, Combivent, and albuterol MDI. / Will treat acute bronchitic exacerbation with a course of Levaquin 750 mg PO DAILY 10 tabs 0RF / /) 02/09/2024 Refill [facility] [address] [place] [address] Anthony Ruiz ANP Essential hypertension 02/04/2024 9:00 AM EST Clinical Support [facility] [address] [place] [address] Azeb Hall RN alf (current) use of opiate analgesic 02/04/2024 Refill [facility] [address] [place] [address] Anthony Ruiz ANP Cervicalgia 02/04/2024 Telephone [facility] [address] [place] [address] 16470 Anthony Ruiz ANP Med Refill 02/04/2024 Travel 02/02/2024 Telephone [facility] [address] [place] [address] 95518 Anthony Ruiz ANP Nurse Triage 01/31/2024 Refill [facility] [address] [place] [address] [phone] Anthony Ruiz ANP Chronic bilateral low back pain, unspecified whether sciatica present from Last 3 Months Immunizations Name Administration [...] Sign Reading Time Taken Comments Blood Pressure 124/93 04/20/2024 11:36 AM EST Pulse 84 04/20/2024 11:36 AM EST Temperature 36.4 ??C (97.6 ??F) 04/20/2024 11:[address] Respiratory Rate 18 04/20/2024 11:36 AM EST Oxygen Saturation 94% 04/20/2024 11:36 AM EST Inhaled Oxygen Concentration - - Weight 90.4 kg (199 lb 3.2 oz) 04/20/2024 11:36 AM EST Height 162.6 cm (5' 4 ) 02/23/2024 2:05 PM EST Body Mass Index 34.19 02/23/2024 2:05 PM EST Plan of Treatment Upcoming Encounters Date Type Department Care Team (Late st Contact Info) Description 04/23/2024 11:30 AM EST Clinical Support [facility] [address] [place] [address] [phone] Azeb Hall, RN [address] [place] [address] 04/29/2024 11:30 AM EDT Medication Management [facility] [address] [place] [address] [phone] Yuri Pierre, PharmD [address] [place] [phone] 07/15/2024 1:00 PM EDT Office Visit [facility] [address] [place] [phone] Anthony Ruiz, ANP [address] [place] [phone] 08/04/2024 1:00 PM EDT Office Visit [facility] [address] [place] [address] Nuvia Duarte [address] [place] [address] Health Maintenance Due Date Last Done Comments [...] exists Dental Oral Exam 03/15/2024 09/12/2023, 08/12/2022 Depression Monitoring (PHQ-9) 04/02/2024 10/01/2023, 10/01/2023 Diabetes: Hemoglobin A1C 04/03/2024 024, 12/30/2023, 04/30/2023, Additional history exists Dental Prophylaxis 04/08/2024 10/06/2023, 0 09/18/2022, 01/18/2022 SDOH Screening 06/22/2024 06/23/2023 Dental X-Ray: Bitewings 09/12/2024 09/12/2023, 08/12 Depression Screening 09/30/2024 10/01/2023, 10/01/19 Diabetes: Urine Protein Screening 01/01/2025 01/02/2024, 01/22/2022, 02/12/2021, Additional history exists Lipid Panel 01/01/2025 01/02/2024, 07, 07/24/2021, Additional history exists Mammogram 04/12/2025 04/12/2024, 03/21, 03/20/2023, Additional history exists Tobacco Screening 04/20/2025 04/20/2024 Cervical Cancer Screening 05/09/2025 HPV/Cotest 05/09/2025 05/09/2020, [...] 124/93(2024 11:36 AM EST) No Aida Ragland, MikeD Record Your Blood Sugar As Directed General No Aida Ragland, PharmD Hemoglobin A1c < 7 Result Component 6.6( 8:44 AM EST) No Aida Ragland, Dileep Procedures Procedure Name Priority Date/Time Associated Diagnosis Comments D DIMER HIGH SENSITIVITY Routine 04/20/2024 1:21 PM EST POCT INFLUENZA B (ID NOW RAPID MOLECULAR) Routine 04/15/2024 2:02 PM EST Acute cough POCT RAPID COVID ANTIGEN Routine 04/15/2024 2:01 PM EST Acute cough POCT INFLUENZA A (ID NOW RAPID MOLECULAR) Routine 04/15/2024 1:59 PM EST Acute cough BI MAMMOGRAM SCREENING TOMOSYNTHESIS BILATERAL Routine 04/12/2024 1:[address] ABDOMEN PELVIS W CONTRAST Routine 03/20/2024 [...] DRUG SCREEN Routine 02/04/2024 9:31 AM EST alf (current) use of opiate analgesic ALBUMIN, RANDOM [...] ESTABLISHED PATIENT Routine 09/12/2023 3:00 PM EDT BITEWINGS - 4 RADIOGRAPHIC IMAGES Routine 08/12/2022 9:00 AM EDT HM COLONOSCOPY Routine 12/27/2021 ZZZ HISTORICAL HPV E6/E7 RFLX ALFRED 16 Routine 05/09/2020 11:19 AM EDT from Last 3 Months or Most Recently Relevant to Health Maintenance Results * D Dimer High Sensitivity (04/20/2024 1:21 PM EST) D Dimer High Sensitivity 218 NG/ML [facility] Comment:D-DIMER HS REFERENCE RANGENote: Our assay reports D-Dimer Units (D- DU).The cut-off value for venous thromboembolic (VTE) disease is230 ng/mL. This value has a very high negative predictivevalue when the patient has a low to moderate clinicalprobability of VTE.The upper limit of normal is 243 ng/mL. 04/20/2024 1:21 PM EST 04/20/2024 1:21 PM EST Chava Presley MD LAB BLOOD ORDERABLES Final Resul t Performing Organization Address [facility]/ZIP Co de Phone Number [facility] [address] [place] [phone] * POCT Rapid Influenza B BAILEY ID NOW (04/15/2024 2:02 PM EST) Influenza B Negative Negative, Indeterminate [facility] QC Media Lot # [id number] [facility] Lot# Expiration Date [facility] Swab 04/15/2024 2:02 PM EST Anthony Ruiz ANP POINT OF CARE TEST ENTER/EDIT OR DERABLES Final Result Performing Organization Address [facility] Co de Phone Number [facility] [address] [place] [phone] * POCT Rapid Covid-19 BinaxNOW (04/15/2024 2:01 PM EST) Rapid COVID Ag Negative QC Media Lot # [id number] Lot# Expiration Date Swab 04/15/2024 2:01 PM EST Anthony Ruiz ANP POINT OF CARE TEST ENTER/EDIT OR DERABLES Final Result * POCT Rapid Influenza A BAILEY ID NOW (04/15/2024 1:59 PM EST) Influenza A Negative Negative, Indeterminate [facility] QC Media Lot # [id number] [facility] Lot# Expiration Date [facility] Swab 04/15/2024 1:59 PM EST Anthony Ruiz ANP POINT OF CARE TEST ENTER/EDIT OR DERABLES Edited Result - Final Performing Organization Address [facility]/ZIP Co de Phone Number [facility] [address] [place] [phone] * BI Mammogram Screening Tomosynthesis Bilateral (04/12/2024 1:48 PM EST) Anatomical Region Laterality Modality Breast Bilateral Mammography 04/12/2024 1:48 PM EST Narrative 04/17/2024 12:38 PM EST ? [facility] ? [address] ?[place] [address] ? Mammography Report ? Signed ? Patient: Nuvia Fay ?MR ?? #: [id number] ? : 1960 ?Acct:[id number] ? Age/Sex: 63 / F ?ADM Date: 04/12/24 ? Loc: HO.MAMMO ? Attending Dr: Monica Lozano CNM ? Ordering Physician: Monica Lozano CNM ?Results: 2Beni ?? gn Findings ? Date of Service: 04/12/24 ?Follow Up: 1 Year From Orig ?? inal Mammogram ? Procedure(s): MM tomosynthesis screening BI ?? Accession Number(s): [id number] ? cc: Monica Lozano CNM; ANTHONY RUIZ NP ? EXAMINATION: ?? MM SCREENING DIGITAL BREAST TOMOSYNTHESIS, BILATERAL ? CLINICAL INFORMATION: ? Screening. Asymptomatic. ? COMPARISON: ?? Mammography: Comparison is made with available priors ? TECHNIQUE: ?? Digital breast mammography with tomosynthesis is performed in both the ?? craniocaudal and mediolateral oblique views along with computer-aided ?? detection (CAD). ? FINDINGS: ?? The breasts are almost entirely fatty (ACR BI-RADS breast composition ?? Category a). ?? Right marker clip. ?? There are no significant masses, abnormal calcifications, or other ?? abnormalities. ? MM/MM tomosynthesis screening BI ?? IMPRESSION: [...] due date for their next mammogram. ? Electronically signed by: ??Cherrie Roberts DO ??04/17/2024 12:35 PM EST ? Dictated By: ?Cherrie Roberts DO ? Signed By: ?<Electronically signed by Cherrie Roberts, DO in OV> ? 04/17/24 1235 ? DD/ 1348 ? TD/TT: 04/12/24 1405 ? Tour Manager: ? Procedure Note Otoniel, Vinicius - 04/17/2024 [facility] [address] [place] [address] Mammography Report Signed Patient: Nuvia Fay EMR #: [id number] : 1960cct:[id number] Age/Sex: 63 / FADM Date: 04/12/24 Loc: HOGaryMAMMO Attending Dr: Monica Lozano CNM Ordering Physician: Monica Lozanoesults: 2Beni gn Findings Date of Service: 04/12/24Follow Up: 1 Year From Orig inal Mammogram Procedure(s): MM tomosynthesis screening BI Accession Number(s): [id number] cc: Monica Lozano CNM; ANTHONY RUIZ NP EXAMINATION: MM SCREENING DIGITAL BREAST TOMOSYNTHESIS, BILATERAL CLINICAL INFORMATION: Screening. Asymptomatic. COMPARISON: Mammography: Comparison is made with available priors TECHNIQUE: Digital breast mammography with tomosynthesis is performed in both the craniocaudal and mediolateral oblique views along with computer-aided detection (CAD). FINDINGS: The breasts are almost entirely fatty (ACR BI-RADS breast composition Category a). Right marker clip. There are no significant masses, abnormal calcifications, or other abnormalities. MM/MM tomosynthesis screening BI IMPRESSION: No mammographic evidence of malignancy. ASSESSMENT: BI-RADS BI-RADS 2 - Benign Findings RECOMMENDATION: Routine annual mammography screening. 1 year F/U This examination should not preclude the clinical evaluation of a suspicious palpable abnormality. This patient's information was entered into a reminder system with a target due date for their next mammogram. Electronically signed by: Cherrie Roberts DO 04/17/2024 12:35 PM EST RP Dictated By: Cherrie Roberts DO Signed By: <Electronically signed by Cherrie Roberts DO in OV> 04/17/24 1235 DD/ 1348 TD/TT: 04/12/24 1405 Tour Manager: [employer] External Provider IMG BI PROCEDURES Edited Result - Final * CT Abdomen Pelvis w/ Contrast (03/20/2024 7:20 PM EST) Anatomical Region Laterality Modality Body, Pelvis, Abdomen Computed T omography 03/20/2024 7:20 PM EST Narrative 03/20/2024 7:23 PM EST ? [facility] ?[address] ?[place] [address] ? CT Scan Report ? Signed ? Patient: Nuvia Fay ?MR ?? #: [id number] ? : 1960 ?Acct:[id number] ? Age/Sex: 63 / F ?ADM Date: 02/01/25 ? Loc: HO.ED ? Attending Dr: ? Ordering Physician: Maritza Mckeon ?? Date of Service: 03/20/24 ?? Procedure(s): CT abdomen pelvis w IV con ?? Accession Number(s): [id number] ? cc: Maritza Mckeon; ANTHONY RUIZ NP ? Report Number: ?? [id number]: Total DLP = ??844.00 mGy-cm ? CLINICAL HISTORY: abdominal wall cellulitis ?? abscess ? CT abdomen and pelvis with contrast ? Comparison: CT/AR/SR - CT ABDOMEN WO/W IV CON - [...] ? DD/ 19 ? TD/TT: 03/20/241919 ? Tour Manager: ? Procedure Note Otoniel, Vinicius - 03/20/2024 [facility] [address] [place] [address] CT Scan Report Signed Patient: Avinash Nuvia Ho EMR #: [id number] : 1Acct:[id number] Age/Sex: 63 / FADM Date: 03/20/24 Loc: HO.ED Attending Dr: Ordering Physician: Maritza Mckeon Date of Service: 03/20/24 Procedure(s): CT abdomen pelvis w IV con Accession Number(s): [id number] cc: Maritza Mckeon; ANTHONY RUIZ NP Report Number: [id number]: Total DLP = 844.00 mGy-cm CLINICAL HISTORY: abdominal wall cellulitis abscess CT abdomen and pelvis with contrast Comparison: CT/AR/SR - CT ABDOMEN WO/W IV CON - [...] Brown MD Signed By: <Electronically signed by Gergory Brown MD in OV> 03/20/241921 DD/ 19 TD/TT: 03/20/241919 Tour Manager: [employer] External Provider IMG CT PROCEDURES Edited Result - Final * (ABNORMAL) Glucose, Whole Blood (03/20/2024 5:01 PM EST) Only the most recent of2 resultswithin the time period is included. Glucose, Whole Blood 163(H) 60 - 115 mg/dL [facility] Comment:METER #: [id number] 03/20/2024 5:01 PM EST 03/20/2024 5:05 PM EST us Generic External Data Provider LAB BLOOD ORDERAB LES Final Result [facility] [address] [place] [phone] * (ABNORMAL) CBC auto differential (03/20/2024 2:28 PM EST) Pathologist [facility] White Blood Count 6.8 4.8 - 10.8 X10*3/uL [facility] Red Blood Count 4.08(L) 4.20 - 5.50 X10*6/uL [facility] Hemoglobin 13.0 12.0 - 16.0 g/dl [facility] Hematocrit 38.0 37.0 - 47.0 % [facility] Mean Corpuscular Volume 93.1 80.0 - 98.0 fL [facility] Mean Corpuscular Hemoglobin 31.9 27.0 - 33.0 pg [facility] Mean Corpuscular HGB Conc 34.2 31.0 - 35.0 g/dl [facility] Red Cell Distribution Width 14.1 11.0 - 16.0 % [facility] Platelet Count 280 160 - 400 X10*3/uL [facility] Mean Platelet Volume 9.2(L) 9.4 - 12.3 fL [facility] Neutrophils Percent Auto 53.1 45 - 73 % [facility] Imm Gran Pct Auto 0.1 0.0 - 0.4 % [facility] Lymphocytes Percent Auto 36.2 20 - 40 % [facility] Monocytes Percent Auto 7.9 2 - 11 % [facility] Eosinophils Percent Auto 2.4 0 - 4 % [facility] Basophils Percent Auto 0.3 0 - 2 % [facility] NRBC Pct Auto 0.0 0.0 - 0.2 /100WBC [facility] Neutrophils Absolute Auto 3.6 2.0 - 8.3 x10*3/uL [facility] Imm Gran Abs Auto 0.01 0.00 - 0.03 X10*3/uL [facility] Lymphocytes Absolute Auto 2.5 1.2 - 4.9 X10*3/uL [facility] Monocytes Absolute Auto 0.5 0.1 - 1.2 X10*3/uL [facility] Eosinophils Absolute Auto 0.2 0.0 - 0.4 X10*3/uL [facility] Basophils Absolute Auto 0.0 0.0 - 0.2 X10*3/uL [facility] LABS NRBC Abs Auto 0.000 0.0 - 0.012 X10*3/uL [facility] 03/20/2024 2:28 PM EST 03/20/2024 2:33 PM EST us Generic External Data Provider LAB BLOOD ORDERAB LES Final Result Performing Organization Address [facility] Co de Phone Number [facility] [address] [place] [phone] * (ABNORMAL) Sed Rate by Modified Earlineren (03/20/2024 2:28 PM EST) Erythrocyte Sedimentation Rate 46(H) 0 - 20 MM/HR [facility] Comment:Patients with polycy themia and many hemoglobin abnormalitiesmay have depressed sed rates whereas patients with anemiamay have elevated sed rates. 03/20/2024 2:28 PM EST 03/20/2024 2:58 PM EST us Generic External Data Provider LAB BLOOD ORDERAB LES Final Result [facility] [address] [place] [address] [phone] * (ABNORMAL) C-reactive Protein (03/20/2024 2:28 PM EST) Pathologist [facility] [place] C Reactive Protein 3.90(H) < or = 0.50 mg/dL [facility] 03/20/2024 2:28 PM EST 03/20/2024 2:33 PM EST Generic External Data Provider LAB BLOOD ORDERAB LES Final Result Performing Organization Address [facility]/ZIP Co de Phone Number [facility] [address] [place] [address] [phone] * Magnesium (03/20/2024 2:28 PM EST) Pathologist [facility] [place] Magnesium 2.2 1.6 - 2.6 mg/dL [facility] 03/20/2024 2:28 PM EST 03/20/2024 2:33 PM EST Generic External Data Provider LAB BLOOD ORDERAB LES Final Result Performing Organization Address [facility] Co de Phone Number [facility] [address] [place] [address] [phone] * Lipase (03/20/2024 2:28 PM EST) Pathologist [facility] [place] Lipase 16 8 - 78 U/L [facility] 03/20/2024 2:28 PM EST 03/20/2024 2:33 PM EST Generic External Data Provider LAB BLOOD ORDERAB LES Final Result Performing Organization Address [facility] Co de Phone Number [facility] [address] [place] [address] [phone] * Lactic Acid (03/20/2024 2:28 PM EST) [facility] Lactic Acid 0.8 0.5 - 2.0 mmol/L [facility] 03/20/2024 2:28 PM EST 03/20/2024 2:33 PM EST Generic External Data Provider LAB BLOOD ORDERAB LES Final Result Performing Organization Address [facility] Phone Number [facility] [address] [place] [address] [phone] * (ABNORMAL) Hepatic Function Panel (03/20/2024 2:28 PM EST) Bilirubin, Total 0.4 0.0 - 1.0 mg/dL [facility] Bilirubin, Direct 0.2 0.0 - 0.5 mg/dL [facility] Aspartate Amino Transferase 173(H) 5 - 31 U/L [facility] Alanine Aminotransferase 249(H) 0 - 31 U/L [facility] Total Protein 7.8 6.5 - 8.0 g/dL [facility] Albumin Level 3.8 3.5 - 5.0 g/dL [facility] Alkaline Phosphatase 138(H) 39 - 117 U/L [facility] 03/20/2024 2:28 PM EST 03/20/2024 2:33 PM EST Generic External Data Provider LAB BLOOD ORDERAB LES Final Result Performing Organization Address [facility] Phone Number [facility] [address] [place] [address] [phone] * (ABNORMAL) Basic Metabolic Panel (03/20/2024 2:28 PM EST) Sodium 143 135 - 145 mmol/L [facility] Potassium 3.7 3.3 - 5.1 mmol/L [facility] Chloride 112(H) 96 - 108 mmol/L [facility] Carbon Dioxide 23 22 - 29 mmol/L [facility] Anion Gap 12 12 - 20 [facility] Urea Nitrogen (BUN) 13 9 - 16 mg/dL [facility] Creatinine, Serum 0.82 0.5 - 1.4 mg/dL [facility] Creatinine Clr Calc Pharmacy 73.7 [facility] Comment:Provided height and weight: 157.48 cm,91.172 kg.eGFR (calculated from the MDRD study equation) and eCrCl(calculated from the Cockcroft-Gault equation) are based ondifferent parameters and may not yield comparable results.If eCrCl result is absurd, please check patient'sheight/weight. Estimated Glomerular Filt Rate >60 [facility] Comment:Chronic Kidney Disea se: Estimated GFR < 60 mL/min/1.35c6Uamecp Kidney Disease: Estimated GFR < 15 mL/min/1.73m2 Glucose 112 60 - 115 mg/dL [facility] Calcium 8.7 8.4 - 10.2 mg/dL [facility] 03/20/2024 2:28 PM EST 03/20/2024 2:33 PM EST us Generic External Data Provider LAB BLOOD ORDERAB LES Final Result [facility] [address] [place] [phone] [phone] * XR Chest 1 View (02/29/2024 1:36 PM EST) Anatomical Region Laterality Modality Chest Radiographic Griselda ging 02/29/2024 1:36 PM EST Narrative 02/29/2024 1:38 PM EST ? [facility] ?[address] ?[place] [address] ?XRay Report ? Signed ? Patient: Nuvia Fay ?MR ?? #: [id number] ? : 1960 ?Acct:[id number] ? Age/Sex: 63 / F ?ADM Date: 01/12/25 ? Loc: HO.ED ? Attending Dr: ? Ordering Physician: Kourtney Jones MD ?? Date of Service: 02/29/24 ?? Procedure(s): XR chest 1V ?? Accession Number(s): [id number] ? cc: Kourtney Jones MD; ANTHONY RUIZ [...] DD/ 1336 ? TD/TT: 02/29/24 1336 ? Tour Manager: ? Procedure Note Donconnerter, Image - 02/29/2024 [place] [address] XRay Report Signed Patient: Nuvia Fay EMR #: [id number] : 1960cct:[id number] Age/Sex: 63 / FADM Date: 02/29/24 Loc: HO.ED Attending Dr: Ordering Physician: Kourtney Jones MD Date of Service: 02/29/24 Procedure(s): XR chest 1V Accession Number(s): [id number] cc: Kourtney Jones MD; ANTHONY RUIZ NP [...] 02/29/24 1337 DD/ 1336 TD/TT: 02/29/24 1336 Tour Manager: [employer] External Provider IMG XR PROCEDURES Edited Result - Final * Bacterial Vaginosis (02/19/2024 1:18 PM EST) TRICHOMONAS VAGINALIS DETECTION BY PCR NOT DETECTED Not Detect [facility] BACTERIAL VAGINOSIS DETECTION BY PCR NEGATIVE Negative [facility] Comment:The BV organism targ ets [...] DETECTION BY PCR NOT DETECTED Not Detect [facility] Eufemia glab krusei PCR NOT DETECTED Not Detect [facility] 02/19/2024 1:18 PM EST 02/19/2024 3:45 PM EST Generic External Data Provider LAB MICROBIOLOGY - GENERAL ORDERABLES Final Result Performing Organization Address City/State/[facility] Co de Phone Number [facility] [address] [place] [address] [phone] * POCT FRANKLIN-14 Urine Drug Screen (02/04/2024 9:31 AM EST) Urine Urine specimen obtained by clean catch procedure / Unknown 02/04/2024 9:31 AM EST Narrative Azeb Hall RN - 02/04/2024 9:31 AM EST negative for THC, MOP, OXY, RENETTA, MET, AMP, BZO, BAR, MTD, BUPG, TCA, MDMA, PCP, PPX. Lot# [id number] Exp: 01-23-25 [facility] POINT OF CARE TEST ENTER/EDIT OR DERABLES Final Result * Albumin, Random Urine W/Creatinine (01/02/2024 8:44 AM EST) Creatinine, Urine 47.20 mg/dL [facility] Microalbumin Urine 7.0 mg/L [facility] Microalbum Creatinine Ratio Ur 14.8 <30 ug/mg cr [facility] Comment:Albumin/Creatinine R atio Reference Ranges: Normal: < 30 ug/mg creatinine Microalbuminuria: 30 - 300 ug/mg creatinineClinical Albuminuria: > 300 ug/mg creatinine Urine (Urine, Random) 01/02/2024 8:44 AM EST 01/02/2024 11:09 AM EST us [facility] LAB URINE ORDERABLES Final Resul t Performing Organization Address City/[facility]/ZIP Co de Phone Number [facility] [address] [place] [address] [phone] * (ABNORMAL) Hemoglobin A1c (01/02/2024 8:44 AM EST) Hemoglobin A1c 6.6(H) <6.0 % [facility] Comment:Hemoglobin A1C Refer ence Range Adults: 4.8 - 6.0 % Non diabetic: < 6.0 % Goal: < 7.0 %Additional Action Suggested: > 8.0 %Note: Hemoglobin A1c results are invalid for patients with abnormal amounts of HbF. Blood transfusions may impact the HbA1c concentration in the patient sample. Estimated Average Glucose 143 mg/dL [facility] Comment:eAG = Estimated ave rage glucose which is %A1C expressed asaverage glucose, using the formula of the G7A-LlntbbsIkxfdeo Glucose study (ADAG), Diabetes Care, Vol.31,#8,Sep. 2007 01/02/2024 8:44 AM EST 01/02/2024 11:03 AM EST [facility] External Data Provider LAB BLOOD ORDERAB LES Final Result Performing Organization Address [facility]/ZIP Co de Phone Number [facility] [address] [place] [address] [phone] * Lipid Panel, Standard (01/02/2024 8:44 AM EST) Triglycerides 93 <150 mg/dL [facility] Comment:Desirable Triglyceri de: less than 150 mg/dLBorderline High Triglyceride 150-199 mg/dLHigh Triglyceride: 200-499 mg/dLVery High Triglyceride: greater than or equal to 5OO mg/dL Cholesterol 177 <200 mg/dL [facility] Comment:Desirable Cholestero l: less than 200 mg/dLBorderline High Cholesterol: 200-239 mg/dLHigh Cholesterol: greater than 239 mg/dL LDL Cholesterol Calculated 90 <100 mg/dL [facility] Comment:Desirable LDL: less than 100 mg/dLNear Optimal/Above Optimal LDL: 110- 129 mg/dLBorderline High LDL: 130-159 mg/dLHigh LDL: 160-189 mg/dLVery High LDL: greater than or equal to 190 mg/dL HDL Cholesterol 69 >40 mg/dL [facility] Comment:Desirable HDL: great er than 40 mg/dL Note: This HDL assay may give artificially low results in patients with liver disease. 01/02/2024 8:44 AM EST 01/02/2024 11:03 AM EST us Generic External Data Provider LAB BLOOD ORDERAB LES Final Result [facility] [address] [place] [address] [phone] * (ABNORMAL) Hm Colonoscopy (12/27/2021) Colonoscopy Abnormal(A ) Normal us Historical Provider HEALTH MAINTENANCE Final Result * HPV E6/E7 RFLX ALFRED 16 18/45 (05/09/2020 11:19 AM EDT) HPV mRNA E6/E7 rflx Not Detected Not Detected [facility] Comment: Methodology: Fitting Room Supervisor-Mediated Amplification This assay detects E6/E7 viral messenger RNA (mRNA) from 14 high-risk HPV types (16,18,31,33,35,39,45,51,52,56,58,59,66,68). The analytical performance characteristics of this assay have been determined by [employer]. The modifications have not been cleared or approved by the FDA. This assay has been validated pursuant to the CLIA regulations and is used for clinical purposes. For additional information, please refer to http://education.CareWire/faq/FVC215y9 (This link if provided for information/ educational purposes only.) THIS TEST WAS PERFORMED AT: [employer] [address] [place] [address] [address] [place], [place] ??[phone] HERNAN WARREN MD 05/09/2020 11:1 9 AM EDT [facility] HISTORICAL/NON ORDERABLE LABS Fi nal Result Performing Organization Address City/State/[facility] Co de Phone Number [facility]where [address] from Last 3 Months or Most Recently Relevant to Health Maintenance Insurance [facility] Care Teams Marketing Analyst Relationship Specialty Start Date End Date Anthony Ruiz ANP [address] [place] [phone] PCP - General Family Medicine 09/23/19
--- OUTSIDE RECORDS SUMMARY | 2024-04-20 16:04 | XMS_ITS | Encounter Summary ---
Author Organization [facility] [facility] Address [address] [place] [address] 7t [place] [address] Care Team Providers Care Navigating Officer Name Role Phone Sariah Vickers Primary Care Provider [phone] Reason for Visit * Reason Comments Med Refill Encounter Details Date Type Department Care Team (Late Contact Info) Description 07/12/2022 Refill [facility] [address] [place] [phone] Sariah Vickers ANP [address] [place] [address] Social History Tobacco Use Types Packs/Day Years [...] Description 04/23/2024 11:30 AM EST Clinical Support [address] [address] Azeb Hall, RN [address] [place] [address] 04/29/2024 11:30 AM EDT Medication Management [address] [address] Yuri Pierre, MikeD [address] [place] [address] 07/15/2024 1:00 PM EDT Office Visit [address] [address] Sariah Vickers ANP [address] [place] [address] 08/04/2024 1:00 PM EDT Office Visit [facility] [address] [place] [address] Nuvia Duarte [address] [place] [address] documented as of this encounter Visit Diagnoses Not on filedocumented in this encounter Care Teams Navigating Officer Relationship Specialty Start Date End Date Sariah Vickers ANP [address] [place] [address]251 PCP - General Family Medicine 09/23/19 documented as of this encounter
--- OUTSIDE RECORDS SUMMARY | 2024-04-20 16:04 | XMS_ITS | Encounter Summary ---
Author Organization [employer] Address [address] [facility] 7t [place] [address] Care Team Providers Care Residential Solar Consultant Name Role Phone Sariah Vickers Primary Care Provider [phone] Reason for Visit * Reason Comments Med Refill Encounter Details Date Type Department Care Team ([facility] st Contact Info) Description 04/02/2024 Refill [facility] [address] [place] [address] Sariah Vickers ANP [address] [place] [address] Neck pain Social History Tobacco Use Types [...] Description 04/23/2024 11:30 AM EST Clinical Support [facility] [address] [place] [address] Azeb Hall RN [address] [place] [address] 04/29/2024 11:30 AM EDT Medication Management [address] [address] Yuri Pierre, PharmD [address] [place] [address] 07/15/2024 1:00 PM EDT Office Visit [facility] [address] [place] [address] Sariah Vickers ANP [address] [place] [address] 08/04/2024 1:00 PM EDT Office Visit [facility] [address] [place] [address] Nuvia Duarte [address] [place] [address] documented as of this encounter Goals Goal Patient Goal Type Associated Problems Recent Progress Patient-Stated? Author Blood Pressure < 140/90 Blood Pressure 124/93(2024 11:36 AM EST) No Aida Rgaland, PharmD Record Your Blood Sugar As Directed [...] documented as of this encounter Care Teams Residential Solar Consultant Relationship Specialty Start Date End Date Sariah Vickers ANP [address] [place] [address] PCP - General Family Medicine 09/23/19 documented as of this encounter
--- OUTSIDE RECORDS SUMMARY | 2024-04-20 16:04 | XMS_ITS | Encounter Summary ---
Author Organization [employer] Address [address] [facility] 7t [place] [address] Care Team Providers Care Ob Gyn Physician Assistant Name Role Phone Sariah Vickers Primary Care Provider [phone] Reason for Visit * Reason Comments Med Refill Encounter Details Date Type Department Care Team ([facility] st Contact Info) Description 12/19/2022 Refill [facility] [address] [place] [address] Sariah Vickers ANP [address] [place] [address] Vertigo Social History Tobacco Use Types Packs/Day [...] Description 04/23/2024 11:30 AM EST Clinical Support [address] [address] Azeb Hall RN 505 [place] [address] 04/29/2024 11:30 AM EDT Medication Management [address] [address] Yuri Pierre, PharmD [address] [place] [address] 07/15/2024 1:00 PM EDT Office Visit [facility] [address] [place] [address] Sariah Vickers ANP [address] [place] [address] 08/04/2024 1:00 PM EDT Office Visit [facility] [address] [place] [address] Nuvia Duarte [address] [place] [address] documented as of this encounter Goals Goal Patient Goal Type Associated Problems Recent Progress Patient-Stated? Author Blood Pressure < 140/90 Blood Pressure 124/93(2024 11:36 AM EST) No Aida Ragland PharmD Record Your Blood Sugar As Directed General No Aida Ragland PharmD Hemoglobin A1c < 7 Result Component 6.6(11/15/202 4 8:44 AM EST) Aida Ernst PharmD documented as of this encounter Visit Diagnoses Diagnosis Vertigo Dizziness and giddiness documented in this encounter Care Teams Ob Gyn Physician Assistant Relationship Specialty Start Date End Date Sariah Vickers ANP [address] [place] [phone] PCP - General Family Medicine 09/23/19 documented as of this encounter
--- OUTSIDE RECORDS SUMMARY | 2024-04-20 16:04 | XMS_ITS | Encounter Summary ---
Author Organization [employer] Address [address] [facility] 7t [place] [address] Care Team Providers Care Padder Cushion Name Role Phone Sariah Vickers Primary Care Provider [phone] Reason for Visit * Reason Comments Med Refill Encounter Details Date Type Department Care Team ([facility] st Contact Info) Description 06/30/2023 Refill [facility] [address] [place] [address] Sariah Vickers ANP [address] [place] [address] Neck pain Social History Tobacco Use Types [...] [facility] [address] [place] [address] Azeb Hall RN 505 [place] [address] 04/29/2024 11:30 AM EDT Medication Management [address] [address] Yuri Pierre, PharmD [address] [place] [address] 07/15/2024 1:00 PM EDT Office Visit [facility] [address] [place] [address] Sariah Vickers ANP [address] [place] [address] 08/04/2024 1:00 PM EDT Office Visit [facility] ADULT DENTAL [address] [place] [address] Nuvia Duarte [address] [place] [address] documented as of this encounter Goals Goal [...] documented as of this encounter Care Teams Padder Cushion Relationship Specialty Start Date End Date Sariah Vickers ANP [address] [place] [address] PCP - General Family Medicine 09/23/19 documented as of this encounter
--- OUTSIDE RECORDS SUMMARY | 2024-04-20 16:04 | XMS_ITS | Encounter Summary ---
Author Organization [employer] Address [address] [facility] 7t [place] [address] Care Team Providers Care Splicer Operator Name Role Phone Sariah Vickers Primary Care Provider [phone] Encounter Details Date Type Department Care Team (Late st Contact Info) Description 04/01/2024 Refill [facility]INE [address] [place] [address] Sariah Vickers ANP [address] [place] [address] Type 2 diabetes mellitus with hyperlipidemia (CMS/HCC) [...] Pierre PharmD - 04/01/2024 12:57 PM EST [facility] Pharmacy requested prescription for Freestyle jalil 2 reader to replace lost reader for patient. PCP agreeable to provide replacement ahead of visit 04/15/2024. Pharmacist sent prescription for Freestyle Jalil 2 reader, use to scan sensor every 8 hours to [facility] pharmacy. documented in this encounter Plan of Treatment Upcoming Encounters Date Type Department Care Team (Late st Contact Info) Description 04/23/2024 11:30 AM EST Clinical Support [facility] MEDICINE [address] [place] [address] Azeb Hall, RN [address] [place] [address] 04/29/2024 11:30 AM EDT Medication Management [facility] MED[facility]INE [address] [place] [address] Yuri Pierre, Dileep [address] [place] [address] 07/15/2024 1:00 PM EDT Office Visit [facility] MED[facility]INE [address] [place] [address] Sariah Vickers, ANP [address] [place] [address] 08/04/2024 1:00 PM EDT Office Visit [facility] ADULT DENTAL [address] [place] [address] Nuvia Duarte [address] [place] [address] documented as of this encounter Goals Goal [...] documented as of this encounter Care Teams Splicer Operator Relationship Specialty Start Date End Date Sariah Vickers ANP [address] [place] [address] PCP - General Family Medicine 09/23/19 documented as of this encounter
--- OUTSIDE RECORDS SUMMARY | 2024-04-20 16:04 | XMS_ITS | Encounter Summary ---
Author Organization [employer] [facility] Address [address] [facility] 7t [place] [address] Care Team Providers Care Catheter Builder Name Role Phone Sariah Vickers Primary Care Provider [phone] Reason for Visit * Reason Comments Med Refill Encounter Details Date Type Department Care Team ([facility] st Contact Info) Description 05/21/2023 Refill [facility] [address] [place] [address] Sariah Vickers ANP [address] [place] [address] Neck pain Social History Tobacco Use Types [...] Description 04/23/2024 11:30 AM EST Clinical Support [facility] [address] [place] [address] Azeb Hall, RN [address] [place] [address] 04/29/2024 11:30 AM EDT Medication Management [address] [address] Yuri Pierre, PharmD [address] [place] [address] 07/15/2024 1:00 PM EDT Office Visit [facility] [address] [place] [address] Sariah Vickers, ANP [address] [place] [address] 08/04/2024 1:00 PM EDT Office Visit [facility] [address] [place] [address] Nuvia Duarte [address] [place] [address] documented as of this encounter Goals Goal Patient Goal Type Associated Problems Recent Progress Patient-Stated? Author Blood Pressure < 140/90 Blood Pressure 124/93(2024 11:36 AM EST) No Aida Ragland, Dileep Record Your Blood Sugar As Directed General No Aida Ragland PharmD Hemoglobin A1c < 7 Result Component 6.6( 8:44 AM EST) No Aida Ragland PharmD documented as of this encounter Visit Diagnoses Diagnosis Neck pain Cervicalgia documented in this encounter Care Teams Catheter Builder Relationship Specialty Start Date End Date Sariah Vickers ANP [address] [place] [address] PCP - General Family Medicine 09/23/19 documented as of this encounter
--- OUTSIDE RECORDS SUMMARY | 2024-04-20 16:04 | XMS_ITS | Encounter Summary ---
Author Organization [employer] Address 75 [facility] 7t [place] [address] Care Team Providers Care Pharmacy Data Analyst Name Role Phone Sariah Vickers Primary Care Provider [phone] Reason for Visit * Reason Onset Date Comments Med Refill Durable Medical Equipment 07/15/2023 Foam M attress/Raised Toilet Seat Encounter Details Date Type Department Care Team (Late st Contact Info) Description 07/15/2023 Refill [facility] MEDICINE 230 [place], [place] [phone] Sariah Vickers ANP 230 [place] [address] Neck pain Social History Tobacco Use Types [...] Please see request sent via email by [facility] Best Worker Arlin Baker. Please Advise. Good morning, Our [...] Description 04/23/2024 11:30 AM EST Clinical Support [address] [address] Azeb Hall RN 505 [place] [address] 04/29/2024 11:30 AM EDT Medication Management [address] [address] Yuri Pierre, Dileep 230 [place] [address] 07/15/2024 1:00 PM EDT Office Visit [facility] MEDICINE 230 [place] [address] Sariah Vickers ANP 230 [place] [address] 08/04/2024 1:00 PM EDT Office Visit [facility] ADULT DENTAL 230 [place] [address] FeliciaNuvia 230 [place] [address] documented as of this encounter Goals Goal Patient Goal Type Associated Problems Recent Progress Patient-Stated? Author Blood Pressure < 140/90 Blood Pressure 124/93(2024 11:36 AM EST) No Aida Ragland PharmD Record Your Blood Sugar As Directed General No PhanisAida Cheng PharmD Hemoglobin A1c < 7 Result Component 6.6( 4 8:44 AM EST) No Aida Ragland PharmD documented as of this encounter Visit Diagnoses Diagnosis Neck pain Cervicalgia documented in this encounter Additional Health Concerns Assessment Noted Time PHQ-9 Depression Total Score: 2 06/23/19 24 2:10 PM EDT documented as of this encounter Care Teams Pharmacy Data Analyst Relationship Specialty Start Date End Date Sariah Vickers ANP [address] [place] [address] PCP - General Family Medicine 09/23/19 documented as of this encounter
--- OUTSIDE RECORDS SUMMARY | 2024-04-20 16:04 | XMS_ITS | Encounter Summary ---
Author Organization [facility] [facility] Address [address] [place] [address] 7t [place] [address] Care Team Providers Care Electrotype Molder Name Role Phone Sariah Vickers Primary Care Provider [phone] Reason for Visit * Reason Comments Med Refill Encounter Details Date Type Department Care Team (Late st Contact Info) Description 07/10/2022 Refill [facility] MEDICINE [address] [place] [address] Sariah Vickers ANP 230 [place] [address] Vertigo Social History Tobacco Use Types Packs/Day [...] Description 04/23/2024 11:30 AM EST Clinical Support [address] [address] Azeb Hall, RN 505 [place] [address] 04/29/2024 11:30 AM EDT Medication Management [address] [address] Yuri Pierre, PharmD [address] [place] [address] 07/15/2024 1:00 PM EDT Office Visit [address] [address] Sariah Vickers ANP [address] [place] [address] 08/04/2024 1:00 PM EDT Office Visit [facility] ADULT DENTAL [address] [place] [address] Nuvia Duarte [address] [place] [address] documented as of this encounter Visit Diagnoses Diagnosis Vertigo Dizziness and giddiness documented in this encounter Care Teams Electrotype Molder Relationship Specialty Start Date End Date Sariah Vickers ANP [address] [place] [address] PCP - General Family Medicine 09/23/19 documented as of this encounter
--- OUTSIDE RECORDS SUMMARY | 2024-04-20 16:04 | XMS_ITS | Encounter Summary ---
Author Organization [employer] Address 75 [facility] 7t [place] [address] Care Team Providers Care Marketing Research Intern Name Role Phone Sariah Vickers Primary Care Provider Reason for Visit * Reason Comments Med Refill Encounter Details Date Type Department Care Team ([facility] st Contact Info) Description 04/06/[address] [facility] MEDICINE 230 [place] [address] Sariah Vickers ANP 230 [place] [address] Severe persistent asthma without complication Social History [...] Description 04/23/2024 11:30 AM EST Clinical Support [facility] MEDICINE [address] [place] [address] Azeb Hall RN 505 [place] [address] 04/29/2024 11:30 AM EDT Medication Management [address] [address] Yuri Pierre, PharmD [address] [place] [address] 07/15/2024 1:00 PM EDT Office Visit [facility] MEDICINE [address] [place] [address] Sariah Vickers ANP [address] [place] [address] 08/04/2024 1:00 PM EDT Office Visit [facility] ADULT DENTAL [address] [place] [address] Nuvia Duarte [address] [place] [address] documented as of this encounter Goals Goal [...] documented as of this encounter Care Teams Marketing Research Intern Relationship Specialty Start Date End Date Sariah Vickers ANP [address] [place] [address] PCP - General Family Medicine 09/23/19 documented as of this encounter
--- OUTSIDE RECORDS SUMMARY | 2024-04-20 16:04 | XMS_ITS | Encounter Summary ---
Author Organization [employer] Address [address] [facility] [address] 7t [place] [address] Care Team Providers Care Supervisor Statement Clerks Name Role Phone Sariah Vickers Primary Care Provider [phone] Encounter Details Date Type Department Care Team (Late st Contact Info) Description 04/20/2024 Orders Only [facility] 230 [place], [place] [phone] Chava Presley MD 230 [place], [place] [phone] Social History Tobacco Use Types Packs/Day Years [...] Description 04/23/2024 11:30 AM EST Clinical Support [facility] MEDICINE [address] [place] [address] Azeb Hall, RN 505 [place] [address] 04/29/2024 11:30 AM EDT Medication Management [address] [address] Yuri Pierre, MikeD [address] [place] [address] 07/15/2024 1:00 PM EDT Office Visit [facility] MEDICINE [address] [place] [address] Sariah Vickers ANP 230 [place] [address] 08/04/2024 1:00 PM EDT Office Visit [facility] ADULT DENTAL [address] [place] [address] Nuvia Duarte 230 [place] [address] documented as of this encounter Goals Goal Patient Goal Type Associated Problems Recent Progress Patient-Stated? Author Blood Pressure < 140/90 Blood Pressure 124/93(2024 11:36 AM EST) No Aida Ragland, PharmBear Record Your Blood Sugar As Directed General No Piers-Aida Medina PharmD Hemoglobin A1c < 7 Result Component 6.6( 4 8:44 AM EST) No Aida Ragland PharmD documented as of this encounter Procedures Procedure Name Priority Date/Time Associated Diagnosis Comments D DIMER HIGH SENSITIVITY Routine 04/20/2024 1:21 PM EST documented in this encounter Results * D Dimer High Sensitivity (04/20/2024 1:21 PM EST) D Dimer High Sensitivity 218 NG/ML [facility] Comment:D-DIMER HS REFERENCE RANGENote: Our assay reports D-Dimer Units (D- DU).The cut-off value for venous thromboembolic (VTE) disease is230 ng/mL. This value has a very high negative predictivevalue when the patient has a low to moderate clinicalprobability of VTE.The upper limit of normal is 243 ng/mL. 04/20/2024 1:21 PM EST 04/20/2024 1:21 PM EST us Chava Presley MD LAB BLOOD ORDERABLES Final Resul t [facility] [address] [place] [phone] documented in this encounter Visit Diagnoses Not on filedocumented in this encounter Additional Health Concerns Assessment Noted Time PHQ-9 Depression Total Score: 12 08/2 024 2:58 PM EDT documented as of this encounter Care Teams Supervisor Statement Clerks Relationship Specialty Start Date End Date Sariah Vickers ANP [address] [place] [address] PCP - General Family Medicine 09/23/19 documented as of this encounter
--- OUTSIDE RECORDS SUMMARY | 2024-04-20 16:04 | XMS_ITS | Encounter Summary ---
Author Organization [employer] [facility] Address 75 [facility] 7t [place] [address] Care Team Providers Care Senior Manager Quality Assurance Name Role Phone Sariah Vickers Primary Care Provider [phone] Reason for Visit * Reason Comments Follow-up Encounter Details Date Type Department Care Team (Latest Contact Info) Description 04/15/2024 1:30 PM EST Office Visit [facility] MEDICINE 230 [place], [place] [phone] Sariah Vickers ANP 230 [place] [address] Umbilical hernia without obstruction and without gangrene (Primary Dx); Type 2 diabetes mellitus with hyperlipidemia (CMS/HCC) (CMS/HCC); Acute cough Social History Tobacco Use Types Packs/Day Years [...] Sign Reading Time Taken Comments Blood Pressure 132/82 04/15/2024 1:54 PM EST Pulse 82 04/15/2024 1:26 PM EST Temperature 36.4 ??C (97.5 ??F) 04/15/2024 1:26 PM ES T Respiratory Rate 16 04/15/2024 1:26 PM EST Oxygen Saturation 94% 04/15/2024 1:26 PM EST Inhaled Oxygen Concentration - - Weight 91.4 kg (201 lb 9.6 oz) 04/15/2024 1:26 P M EST Height - - Body Mass Index 34.6 02/23/2024 2:05 PM EST documented in this encounter Plan of Treatment Upcoming Encounters Date Type Department Care Team (Late st Contact Info) Description 04/23/2024 11:30 AM EST Clinical Support [address] [address] Azeb Hall RN 505 [place] [address] 04/29/2024 11:30 AM EDT Medication Management [address] [address] Yuri Pierre, PharmD [address] [place] [address] 07/15/2024 1:00 PM EDT Office Visit [facility] MEDICINE 230 [place] [address] Sariah Vickers ANP 230 [place] [address] 08/04/2024 1:00 PM EDT Office Visit [facility] ADULT DENTAL 230 [place] [address] Felicia Nuvia 230 [place] [address] documented as of this encounter Goals Goal Patient Goal Type Associated Problems Recent Progress Patient-Stated? Author Blood Pressure < 140/90 Blood Pressure 124/93(2024 11:36 AM EST) No PhanisAida Cheng PharmD Record Your Blood Sugar As Directed General No Aida Ragland PharmD Hemoglobin A1c < 7 Result Component 6.6( 8:44 AM EST) No PhanisAida Cheng PharmD documented as of this encounter Procedures Procedure Name Priority Date/Time Associated Diagnosis Comments POCT INFLUENZA B (ID NOW RAPID MOLECULAR) Routine 04/15/2024 2:02 PM EST Acute cough POCT RAPID COVID ANTIGEN Routine 04/15/2024 2:01 PM EST Acute cough POCT INFLUENZA A (ID NOW RAPID MOLECULAR) Routine 04/15/2024 1:59 PM EST Acute cough documented in this encounter Results * POCT Rapid Influenza B BAILEY ID NOW (04/15/2024 2:02 PM EST) Influenza B Negative Negative, Indeterminate [facility] QC Media Lot # [id number] [facility] Lot# Expiration Date , [facility] Swab 04/15/2024 2:02 PM EST us Sariah PAGE POINT OF CARE TEST ENTER/EDIT OR DERABLES Final Result [facility] [address] [place] [address] [phone] * POCT Rapid Covid-19 BinaxNOW (04/15/2024 2:01 PM EST) Rapid COVID Ag Negative QC Media Lot # [id number] Lot# Expiration Date ,026 Swab 04/15/2024 2:01 PM EST Sariah Vickers ANP POINT OF CARE TEST ENTER/EDIT OR DERABLES Final Result * POCT Rapid Influenza A BAILEY ID NOW (04/15/2024 1:59 PM EST) Influenza A Negative Negative, Indeterminate [facility] QC Media Lot # [id number] [facility] Lot# Expiration Date , [facility] Swab 04/15/2024 1:59 PM EST Sariah Vickers ANP POINT OF CARE TEST ENTER/EDIT OR DERABLES Edited Result - Final Performing Organization Address City/[facility]/ZIP Co de Phone Number [facility] [address] [place] [address] [phone] documented in this encounter Visit Diagnoses Diagnosis Umbilical hernia without obstruction and without gangrene- Primary Type 2 diabetes mellitus with hyperlipidemia (CMS/HCC) ([facility]/HCC) Acute cough documented in this encounter Additional Health Concerns Assessment Noted Time PHQ-9 Depression Total Score: 12 024 2:58 PM EDT documented as of this encounter Care Teams Senior Manager Quality Assurance Relationship Specialty Start Date End Date Sariah Vickers ANP 230 [place] [address] PCP - General Family Medicine 09/23/19 documented as of this encounter
--- OUTSIDE RECORDS SUMMARY | 2024-04-20 16:04 | XMS_ITS | Encounter Summary ---
Author Organization [employer] Address 75 [facility] 7t [place] [address] Care Team Providers Care Communications Professor Name Role Phone Sariah Vickers Primary Care Provider [phone] Reason for Visit * Reason Onset Date Comments Chart Prep 04/12/2024 Encounter Details Date Type Department Care Team ([facility] st Contact Info) Description 04/12/[address] [facility] MEDICINE 230 [place] [address] Sariah Vickers ANP 230 [place] [address] Chart Prep Social History Tobacco Use Types Packs/Day Years [...] encounter Miscellaneous Notes * Telephone Encounter - Jayde Ley [place] - 04/12/2024 3:37 PM EST Chart Prep Labs: not applicable Images: not applicable Vaccines due: Covid Due and Hep A Due Referrals: Dermatology Pending appointment on n/a Screenings: Mammogram, Foot Exam, and HIV screening Overdue care gaps: A1C, Glucose, Sbirt, SDOH, PHQ-9, and Oral Health documented in this encounter Plan of Treatment Upcoming Encounters Date Type Department Care Team (Late st Contact Info) Description 04/23/2024 11:30 AM EST Clinical Support [facility] MEDICINE [address] [place] [address] Azeb Hall, MARTIN 505 [place] [address] 04/29/2024 11:30 AM EDT Medication Management [facility] [address] [place] [address] Yuri Pierre, PharmD [address] [place] [address] 07/15/2024 1:00 PM EDT Office Visit [facility] MEDICINE [address] [place] [address] Sariah Vickers, ANP [address] [place] [address] 08/04/2024 1:00 PM EDT Office Visit [facility] ADULT DENTAL 230 [place] [address] Nuvia Duarte 230 [place] [address] documented as of this encounter Goals Goal [...] documented as of this encounter Care Teams Communications Professor Relationship Specialty Start Date End Date Sariah Vickers ANP 230 [place] [address] PCP - General Family Medicine 09/23/19 documented as of this encounter
--- OUTSIDE RECORDS SUMMARY | 2024-04-20 16:04 | XMS_ITS | Encounter Summary ---
Author Organization [employer] Address 75 [facility] 7t [place] [address] Care Team Providers Care Job Service Specialist Name Role Phone Sariah Vickers Primary Care Provider [phone] Reason for Visit * Reason Comments Med Refill Encounter Details Date Type Department Care Team ([facility] Contact Info) Description 08/14/2022 Refill [facility] [address] [place] [address] Sariah Vickers ANP 230 [place] [address] Severe persistent asthma without complication Social History [...] Upcoming Encounters Date Type Department Care Team ([facility] Contact Info) Description 04/23/2024 11:30 AM EST Clinical Support [address] [address] Azeb Hall, RN 505 [place] [address] 04/29/2024 11:30 AM EDT Medication Management [address] [address] Yuri Pierre, MikeD [address] [place] [address] 07/15/2024 1:00 PM EDT Office Visit [address] [address] Sariah Vickers ANP [address] [place] [address] 08/04/2024 1:00 PM EDT Office Visit [facility] ADULT DENTAL [address] [place] [address] Nuvia Duarte [address] [place] [address] documented as of this encounter Visit Diagnoses Diagnosis Severe persistent asthma without complication documented in this encounter Care Teams Job Service Specialist Relationship Specialty Start Date End Date Sariah Vickers ANP [address] [place] [address] PCP - General Family Medicine 09/23/19 documented as of this encounter
--- OUTSIDE RECORDS SUMMARY | 2024-04-20 16:04 | XMS_ITS | Encounter Summary ---
Author Organization [facility] Address [address] [place] [address] 7t [place] [address] Care Team Providers Care Machine Sander Name Role Phone Sariah Vickers Primary Care Provider [phone] Reason for Visit * Reason Comments Med Refill Encounter Details Date Type Department Care Team (Late st Contact Info) Description 07/17/2022 Refill [facility] MEDICINE [address] [place] [address] Sariah Vickers ANP [address] [place] [address] Neck pain Social History Tobacco Use Types [...] 04/23/2024 11:30 AM EST Clinical Support [address] [address] Azeb Hall, RN 505 [place] [address] 04/29/2024 11:30 AM EDT Medication Management [address] [address] Yuri Pierre, MikeD [address] [place] [address] 07/15/2024 1:00 PM EDT Office Visit [address] [address] Sariah Vickers ANP [address] [place] [address] 08/04/2024 1:00 PM EDT Office Visit [facility] ADULT DENTAL [address] [place] [address] Nuvia Duarte [address] [place] [address] documented as of this encounter Visit Diagnoses Diagnosis Neck pain Cervicalgia documented in this encounter Care Teams Machine Sander Relationship Specialty Start Date End Date Sariah Vickers ANP [address] [place] [address] PCP - General Family Medicine 09/23/19 documented as of this encounter
--- OUTSIDE RECORDS SUMMARY | 2024-04-20 16:04 | XMS_ITS | Encounter Summary ---
Author Organization [employer] Address 75 [facility] 7t [place] [address] Care Team Providers Care Sales Agent Insurance Name Role Phone Sariah Vickers Primary Care Provider [phone] Reason for Visit * Reason Onset Date Comments ER Follow-up 03/29/2024 Encounter Details Date Type Department Care Team ([facility] st Contact Info) Description 03/29/2024 Telephone [facility] MEDICINE 230 [place] [address] Candy Bains, RN 230 [place] [address] ER Follow-up Social History Tobacco Use Types [...] appt with general surgery Dr Frank at [facility] and that the surgeon told her that [...] 04/23/2024 11:30 AM EST Clinical Support [facility] MEDICINE 230 [place] [address] Azeb Hall RN [address] [place] [phone] 04/29/2024 11:30 AM EDT Medication Management [facility] MEDICINE 230 [place] [address] Yuri Pierre, Dileep 230 [place] [address] 07/15/2024 1:00 PM EDT Office Visit [facility] MEDICINE [address] [place] [address] Sariah Vickers ANP 230 [place] [address] 08/04/2024 1:00 PM EDT Office Visit [facility] ADULT DENTAL 230 [place] [address] Nuvia Duarte [address] [place] [address] documented as of this encounter Goals Goal Patient Goal Type Associated Problems Recent Progress Patient-Stated? Author Blood Pressure < 140/90 Blood Pressure 124/93(2024 11:36 AM EST) No Phanis-Aida Medina, PharmD Record Your [...] documented as of this encounter Care Teams Sales Agent Insurance Relationship Specialty Start Date End Date Sariah Vickers ANP [address] [place] [address] PCP - General Family Medicine 09/23/19 documented as of this encounter
--- OUTSIDE RECORDS SUMMARY | 2024-04-20 16:04 | XMS_ITS | Encounter Summary ---
Author Organization [employer] Address 75 [facility] 7t [place] [address] Care Team Providers Care Tankage Grinder Operator Name Role Phone Sariah Vickers Primary Care Provider [phone] Reason for Visit * Reason Comments Med Refill Encounter Details Date Type Department Care Team ([facility] st Contact Info) Description 12/27/[address] [facility] MEDICINE 230 [place] [address] Sariah Vickers ANP 230 [place] [address] Neck pain Social History Tobacco Use Types [...] Description 04/23/2024 11:30 AM EST Clinical Support [address] [address] Azeb Hall RN 505 [place] [address] 04/29/2024 11:30 AM EDT Medication Management [address] [address] Yuri Pierre, PharmD [address] [place] [address] 07/15/2024 1:00 PM EDT Office Visit [facility] MEDICINE [address] [place] [address] Sariah Vickers ANP 230 [place] [address] 08/04/2024 1:00 PM EDT Office Visit [facility] ADULT DENTAL [address] [place] [address] Nuvia Duarte 230 [place] [address] documented as of this encounter Goals Goal [...] Cervicalgia documented in this encounter Care Teams Tankage Grinder Operator Relationship Specialty Start Date End Date Sariah Vickers ANP [address] [place] [address] PCP - General Family Medicine 09/23/19 documented as of this encounter
--- OUTSIDE RECORDS SUMMARY | 2024-04-20 16:04 | XMS_ITS | Encounter Summary ---
Author Organization [employer] Address 75 [facility] 7t [place] [address] Care Team Providers Care Herb Counselor Name Role Phone Sariah Vickers Primary Care Provider [phone] Encounter Details Date Type Department Care Team (Late st Contact Info) Description 03/29/2024 Orders Only [facility] MEDICINE 230 [place] [address] Sariah Vickers ANP 230 [place] [address] Social History Tobacco Use Types Packs/Day Years [...] Description 04/23/2024 11:30 AM EST Clinical Support [facility] MED[facility] [address] [place] [address] Azeb Hall, RN 505 [place] [address] 04/29/2024 11:30 AM EDT Medication Management [facility] [address] [place] [address] Yuri Pierre, PharmD 230 [place] [address] 07/15/2024 1:00 PM EDT Office Visit [facility] MEDICINE [address] [place] [address] Sariah Vickers ANP 230 [place] [address] 08/04/2024 1:00 PM EDT Office Visit [facility] ADULT DENTAL [address] [place] [address] Nuvia Duarte 230 [place] [address] documented as of this encounter Goals Goal Patient Goal Type Associated Problems Recent Progress Patient-Stated? Author Blood Pressure < 140/90 Blood Pressure 124/93(2024 11:36 AM EST) No PhanisAida Cheng, PharmD Record Your Blood Sugar As Directed General No Katelin-Aida Medina, PharmD Hemoglobin A1c < 7 Result Component 6.6( 8:44 AM EST) No Aida Ragland PharmD documented as of this encounter Visit Diagnoses Not on filedocumented in this encounter Additional Health Concerns Assessment Noted Time PHQ-9 Depression Total Score: 12 024 2:58 PM EDT documented as of this encounter Care Teams Herb Counselor Relationship Specialty Start Date End Date Sariah Vickers ANP 230 [place] [address] PCP - General Family Medicine 09/23/19 documented as of this encounter
--- OUTSIDE RECORDS SUMMARY | 2024-04-20 16:04 | XMS_ITS | Encounter Summary ---
Author Organization [facility] Address [address] [facility] 7t [place] [address] Care Team Providers Care Sales Executive Name Role Phone Sariah Vickers Primary Care Provider [phone] Reason for Visit * Reason Onset Date Comments Nurse Triage 04/06/2024 Encounter Details Date Type Department Care Team ([facility] st Contact Info) Description 04/06/[address] [facility] MEDICINE [address] [place] [address] Sariah Vickers ANP 230 [place] [address] Nurse Triage Social History Tobacco Use Types [...] by Endo and refer to CDTM with [facility] pharmacist to continue DM management instead of Endo. Pt missed first appt in March. R/s for April, pt has upcoming appt with PCP. PCP out of office this week. Pt advised to follow up with Endo or to seek [facility] for evaluation of sx this week .Reviewed [facility] operating hours and that wait times [...] requesting Ozempic The caller accepted this outcome. GIBRALTARIAN SPEAKER documented in this encounter Plan of Treatment Upcoming Encounters Date Type Department Care Team (Late st Contact Info) Description 04/23/2024 11:30 AM EST Clinical Support [facility] MEDICINE [address] [place] [address] Azeb Hall RN 505 [place] [address] 04/29/2024 11:30 AM EDT Medication Management [address] [address] Yuri Pierre, PharmD [address] [place] [address] 07/15/2024 1:00 PM EDT Office Visit [facility] MEDICINE [address] [place] [address] Sariah Vickers ANP 230 [place] [address] 08/04/2024 1:00 PM EDT Office Visit [facility] ADULT DENTAL [address] [place] [address] Nuvia Duarte 230 [place] [address] documented as of this encounter Goals Goal [...] as of this encounter Care Teams Sales Executive Relationship Specialty Start Date End Date Sariah Vickers ANP 230 [place] [address] PCP - General Family Medicine 09/23/19 documented as of this encounter
--- OUTSIDE RECORDS SUMMARY | 2024-04-20 16:04 | XMS_ITS | Encounter Summary ---
Author Organization [employer] Address [address] [facility] 7t [place] [address] Care Team Providers Care Vehicle Delivery Worker Name Role Phone Sariah Vickers Primary Care Provider [phone] Reason for Visit * Reason Comments lung pain Shortness of Breath Encounter Details Date Type Department Care Team ([facility] st Contact Info) Description 04/20/2024 11:00 AM EST Office Visit [facility] 230 [place] [address] Chava Presley MD 230 [place] [address] Posterior chest pain (Primary Dx); Asthma-COPD overlap syndrome (CMS/HCC); Neck pain Social History Tobacco Use Types [...] 3.2 oz) 04/20/2024 11:36 AM EST Height - - Body Mass Index 34.19 02/23/2024 2:05 PM EST documented in this encounter Progress Notes * Chava Presley MD - 04/20/2024 11:00 AM EST Subjective Patient ID: Nuvia Ho is a 63 y.o. female. 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 HPI Nuvia had onset 6-7 days ago of knife-like and pressure pain in right posterior chest, worse with inspiration, movements of torso and right UE. Has associated SOB. Has associated cough, wheezing at night, occasional chills. No fever or hemoptysis. Had neg rapid covid and flu tests at [facility] 04/15/2024. Tylenol helps a little. Using Duoneb, Singulair, Fluticasone-Salmeterol 250-50 MCG/ACT aerosol powder Followed by [facility] Dr. Preci[place] [facility] Lives with son. Former smoker. Not employed. Patient Active Problem List Diagnosis Aneurysm of [...] 2 diabetes mellitus (CMS/HCC) Panniculitis affecting sacrum The following portions of the chart were reviewed this encounter and updated as appropriate: Tobacco Allergies Meds Problems Med Hx Surg Hx Fam Hx Review of Systems Constitutional: Positive for chills. Negative for fever. Respiratory: Positive for cough, shortness of breath and wheezing. Cardiovascular: Positive for chest pain. Gastrointestinal: Negative for abdominal pain. Skin: Negative for rash. Neurological: Negative for headaches. Objective Physical Exam Constitutional: Appearance: Normal appearance. HENT: Right Ear: Tympanic membrane, ear canal and external ear normal. Left Ear: Tympanic membrane, ear canal and external ear normal. Nose: Nose normal. Mouth/Throat: Mouth: Mucous membranes are moist. Pharynx: Oropharynx is clear. Eyes: Conjunctiva/sclera: Conjunctivae normal. Pupils: Pupils are equal, round, and reactive to light. Cardiovascular: Rate and Rhythm: Normal rate and regular rhythm. Heart sounds: No murmur heard. Pulmonary: Effort: Pulmonary effort is normal. Breath sounds: Normal breath sounds. Musculoskeletal: General: Normal range of motion. Cervical back: No tenderness. Skin: Findings: No rash. Neurological: Mental Status: She is alert. Gait: Gait is intact. Psychiatric: Mood and Affect: Mood normal. Behavior: Behavior normal. Procedures Assessment/Plan Diagnoses and all orders for this visit: Posterior chest pain Refilled acetaminophen. CXR and d-dimer ordered. Will call pt with results. Rtc if not improving. - XR Chest 2 Views; Future - D-Dimer, Quantitative; Future Asthma-COPD overlap syndrome (CMS/HCC) Prescribed Medrol Dospak. Continue regular meds. Rtc if not improving. - acetaminophen (Tylenol) 325 MG tablet; TAKE 1 TO 2 TABLETS BY MOUTH EVERY 6 HOURS NEEDED Other orders - methylPREDNISolone (Medrol Dospak) 4 MG tablets; Follow schedule on package instructions documented in this encounter Plan of Treatment Upcoming Encounters Date Type Department Care Team (Late st Contact Info) Description 04/23/2024 11:30 AM EST Clinical Support [facility] MED[facility]INE [address] [place] [address] Azeb Hall, RN 505 [place] [address] 04/29/2024 11:30 AM EDT Medication Management [facility] MED[facility]INE [address] [place] [address] Yuri Pierre, PharmD [address] [place] [address] 07/15/2024 1:00 PM EDT Office Visit [facility] MED[facility]INE [address] [place] [address] Sariah Vickers, KAYLEE 230 [place] [address] 08/04/2024 1:00 PM EDT Office Visit [facility] ADULT DENTAL 230 [place] [address] Nuvia Duarte 230 [place] [address] Scheduled Orders Name Type Priority Associated Diagnoses Orde r Schedule XR Chest 2 Views Imaging Routine Posterior chest pain Expected: 04/20/2024, Expires: 04/20/2025 D-Dimer, Quantitative Lab Routine Posterior chest pain Expected: 04/20/2024 (Approximate), Expires: 04/20/2025 documented as of this encounter Goals Goal [...] as of this encounter Visit Diagnoses Diagnosis Posterior chest pain- Primary Asthma-COPD overlap syndrome (CMS/HCC) Neck pain Cervicalgia documented in this encounter Additional Health Concerns Assessment Noted Time PHQ-9 Depression Total Score: 12 024 2:58 PM EDT documented as of this encounter Care Teams Vehicle Delivery Worker Relationship Specialty Start Date End Date Sariah Vickers ANP 230 [place] [address] PCP - General Family Medicine 09/23/19 documented as of this encounter
--- OUTSIDE RECORDS SUMMARY | 2024-04-20 16:04 | XMS_ITS | Encounter Summary ---
Author Organization [employer] Address 75 [facility] 7t [place] [address] Care Team Providers Care Spaghetti 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 Name Role Phone Sariah Vickers Primary Care Provider [phone] Reason for Visit * Reason Comments Med Refill Encounter Details Date Type Department Care Team ([facility] st Contact Info) Description 03/07/2023 Refill [facility] MEDICINE 230 [place] [address] Sariah Vickers ANP 230 [place] [address] Vertigo Social History Tobacco Use Types Packs/Day [...] Description 04/23/2024 11:30 AM EST Clinical Support [address] [address] Azeb Hall RN 505 [place] [address] 04/29/2024 11:30 AM EDT Medication Management [address] [address] Yuri Pierre, PharmD [address] [place] [address] 07/15/2024 1:00 PM EDT Office Visit [facility] MEDICINE [address] [place] [address] Sariah Vickers ANP 230 [place] [address] 08/04/2024 1:00 PM EDT Office Visit [facility] ADULT DENTAL [address] [place] [address] Nuvia Duarte 230 [place] [address] documented as of this encounter Goals Goal [...] giddiness documented in this encounter Care Teams Spaghetti 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 Relationship Specialty Start Date End Date Sariah Vickers ANP [address] [place] [address] PCP - General Family Medicine 09/23/19 documented as of this encounter
--- OUTSIDE RECORDS SUMMARY | 2024-04-20 16:04 | XMS_ITS | Encounter Summary ---
Author Organization [employer] Address 75 [facility] 7t [place] [address] Care Team Providers Care Contract Writer Name Role Phone Sariah Vickers Primary Care Provider [phone] Reason for Visit * Reason Comments Med Refill Encounter Details Date Type Department Care Team ([facility] st Contact Info) Description 03/04/2023 Refill [facility] 230 [place], [place] [phone] Brittney Nava MD 230 [place] [address] Social History Tobacco Use Types Packs/Day Years [...] Description 04/23/2024 11:30 AM EST Clinical Support [address] [address] Azeb Hall, MARTIN 505 [place] [address] 04/29/2024 11:30 AM EDT Medication Management [address] [address] Yuri Pierre, MikeD [address] [place] [address] 07/15/2024 1:00 PM EDT Office Visit [facility] MEDICINE [address] [place] [address] Sariah Vickers ANP 230 [place] [address] 08/04/2024 1:00 PM EDT Office Visit [facility] ADULT DENTAL [address] [place] [address] Nuvia Duarte [address] [place] [address] documented as of this encounter Goals Goal [...] on filedocumented in this encounter Care Teams Contract Writer Relationship Specialty Start Date End Date Sariah Vickers ANP [address] [place] [address] PCP - General Family Medicine 09/23/19 documented as of this encounter
--- OUTSIDE RECORDS SUMMARY | 2024-04-20 16:04 | XMS_ITS | Encounter Summary ---
Author Organization [facility] Address [address] [facility] 7t [place] [address] Care Team Providers Care Crap Shooter Name Role Phone Sariah Vickers Primary Care Provider [phone] Reason for Visit * Reason Onset Date Comments Med Refill 03/04/2023 Encounter Details Date Type Department Care Team ([facility] st Contact Info) Description 03/04/[address] [facility] MEDICINE 230 [place] [address] Sariah Vickers ANP [address] [place] [address] Med Refill Social History Tobacco Use Types [...] 50 MG tablet To be sent to: [facility] [place], [place] - [address] [place] [address] documented in this encounter Plan of Treatment Upcoming Encounters Date Type Department Care Team (Late st Contact Info) Description 04/23/2024 11:30 AM EST Clinical Support [facility] MEDICINE [address] [place] [address] Azeb Hall RN 505 [place] [address] 04/29/2024 11:30 AM EDT Medication Management [facility] MEDICINE [address] [place] [address] Yuri Pierre, PharmD [address] [place] [address] 07/15/2024 1:00 PM EDT Office Visit [facility] MEDICINE [address] [place] [address] Sariah Vickers, KAYLEE 230 [place] [address] 08/04/2024 1:00 PM EDT Office Visit [facility] ADULT DENTAL 230 [place] [address] Nuvia Duarte 230 [place] [address] documented as of this encounter Goals Goal [...] on filedocumented in this encounter Care Teams Crap Shooter Relationship Specialty Start Date End Date Sariah Vickers ANP 230 [place] [address] PCP - General Family Medicine 09/23/19 documented as of this encounter
--- OUTSIDE RECORDS SUMMARY | 2024-04-20 16:04 | XMS_ITS | Encounter Summary ---
Author Organization [employer] Address [address] [facility] 7t [place] [address] Care Team Providers Care Marking Stitcher Name Role Phone Sariah Vickers Primary Care Provider [phone] Reason for Visit * Reason Comments Med Refill Encounter Details Date Type Department Care Team ([facility] st Contact Info) Description 02/28/2023 Refill [facility] MEDICINE 230 [place] [address] Sariah Vickers ANP 230 [place] [address] Cervicalgia Social History Tobacco Use Types Packs/Day [...] Description 04/23/2024 11:30 AM EST Clinical Support [address] [address] Azeb Hall RN 505 [place] [address] 04/29/2024 11:30 AM EDT Medication Management [address] [address] Yuri Pierre, PharmD [address] [place] [address] 07/15/2024 1:00 PM EDT Office Visit [facility] MEDICINE [address] [place] [address] Sariah Vickers ANP 230 [place] [address] 08/04/2024 1:00 PM EDT Office Visit [facility] ADULT DENTAL [address] [place] [address] Nuvia Duarte 230 [place] [address] documented as of this encounter Goals Goal [...] Cervicalgia documented in this encounter Care Teams Marking Stitcher Relationship Specialty Start Date End Date Sariah Vickers ANP [address] [place] [address] PCP - General Family Medicine 09/23/19 documented as of this encounter
--- OUTSIDE RECORDS SUMMARY | 2024-04-20 16:04 | XMS_ITS | Encounter Summary ---
Author Organization [email or web address] [facility] Address [address] [facility] 7t [place] [address] Care Team Providers Care Websphere Commerce Architect Name Role Phone Sariah Vickers Primary Care Provider [phone] Reason for Visit * Reason Onset Date Comments Nurse Triage 12/24/2022 Encounter Details Date Type Department Care Team ([facility] st Contact Info) Description 12/24/2022 Telephone [facility] MEDICINE 230 [place] [address] Sariah Vickers ANP 230 [place] [address] Nurse Triage Social History Tobacco Use Types [...] the past 12 months, has t he [place], gas, oil or water [employer] threatened to shut off services in your [...] - 12/24/2022 1:11 PM EST Called pt.via [employer] translator/interpreter [phone] Benjamin. Pt. States that she wants to [...] regimen and possible referral to a new Clothing Room Supervisor due to pt. Not having jeremie [...] accepted this outcome Please contact pt at [phone] documented in this encounter Plan of Treatment Upcoming Encounters Date Type Department Care Team (Late st Contact Info) Description 04/23/2024 11:30 AM EST Clinical Support [facility] MEDICINE [address] [place] [address] [phone] Azeb Hall, MARTIN [address] [place] [address] [phone] 04/29/2024 11:30 AM EDT Medication Management [facility] MEDICINE 230 [place] [address] Yuri Pierre, Dileep 230 [place], [place] 07/15/2024 1:00 PM EDT Office Visit [facility] MEDICINE [address] [place] [address] Sariah Vickers ANP 230 [place], [place] 08/04/2024 1:00 PM EDT Office Visit [facility] ADULT DENTAL 230 [place], [place] [phone] Nuvia Duarte 230 [place], [place] documented as of this encounter Goals Goal [...] on filedocumented in this encounter Care Teams Websphere Commerce Architect Relationship Specialty Start Date End Date Sariah Vickers ANP [address] [place] [address] PCP - General Family Medicine 09/23/19 documented as of this encounter
--- OUTSIDE RECORDS SUMMARY | 2024-04-20 16:04 | XMS_ITS | Clinical Summary ---
Author Organization [address] [facility] Address [address] [place] [address] Phone Care Team Providers Care Laser Beam Trim Operator Name Role Phone Sariah Vickers NP Primary Care Provider [phone] Social History Tobacco Use Types Packs/Day Years [...] age to complete this topic Care Teams Laser Beam Trim Operator Relationship Specialty Start Date End Date Sariah Vickers NP [address] [place] [phone] PCP - General 12/03/23
--- OUTSIDE RECORDS SUMMARY | 2024-04-20 16:04 | XMS_ITS | Encounter Summary ---
Author Organization [facility] [facility] Address [address] [place] [address] 7t [place] [address] Care Team Providers Care Workforce Consultant Name Role Phone Sariah Vickers Primary Care Provider [phone] Reason for Visit * Reason Onset Date Comments Referral 05/17/2022 Encounter Details Date Type Department Care Team ([facility] st Contact Info) Description 05/17/2022 Telephone [facility] MEDICINE 230 [place] [address] Sariah Vickers ANP 230 [place] [address] Referral Social History Tobacco Use Types Packs/Day [...] guide to vertigo. Please contact pt at [phone] documented in this encounter Plan of Treatment Upcoming Encounters Date Type Department Care Team ([facility] st Contact Info) Description 04/23/2024 11:30 AM EST Clinical Support [address] [address] Azeb Hall, RN 505 [place] [address] 04/29/2024 11:30 AM EDT Medication Management [address] [address] Yuri Pierre, PharmD [address] [place] [address] 07/15/2024 1:00 PM EDT Office Visit [facility] MED[facility]INE [address] [place] [address] Sariah Vickers ANP 230 [place] [address] 08/04/2024 1:00 PM EDT Office Visit [facility] ADULT DENTAL 230 [place] [address] Brendan Duartearis 230 [place] [address] documented as of this encounter Visit Diagnoses Not on filedocumented in this encounter Care Teams Workforce Consultant Relationship Specialty Start Date End Date Sariah Vickers ANP [address] [place] [address] PCP - General Family Medicine 09/23/19 documented as of this encounter
--- OUTSIDE RECORDS SUMMARY | 2024-04-20 16:04 | XMS_ITS | Encounter Summary ---
Author Organization [employer] Address [address] [facility] 7t [place] [address] Care Team Providers Care Chain Maker Name Role Phone Sariah Vickers Primary Care Provider [phone] Reason for Visit * Reason Comments Med Refill Encounter Details Date Type Department Care Team ([facility] st Contact Info) Description 03/28/2024 Refill [facility] [address] [place] [address] Sariah Vickers ANP 230 [place] [address] Cervicalgia Social History Tobacco Use Types Packs/Day [...] Description 04/23/2024 11:30 AM EST Clinical Support [facility] MEDICINE [address] [place] [address] Azeb Hall RN 505 [place] [address] 04/29/2024 11:30 AM EDT Medication Management [address] [address] Yuri Pierre, PharmD [address] [place] [address] 07/15/2024 1:00 PM EDT Office Visit [facility] MEDICINE [address] [place] [address] Sariah Vickers ANP [address] [place] [address] 08/04/2024 1:00 PM EDT Office Visit [facility] ADULT DENTAL [address] [place] [address] Nuvia Duarte [address] [place] [address] documented as of this encounter Goals Goal [...] documented as of this encounter Care Teams Chain Maker Relationship Specialty Start Date End Date Sariah Vickers ANP [address] [place] [address] PCP - General Family Medicine 09/23/19 documented as of this encounter
--- OUTSIDE RECORDS SUMMARY | 2024-04-20 16:04 | XMS_ITS | Encounter Summary ---
Author Organization [employer] Address [address] [facility] 7t [place] [address] Care Team Providers Care Pediatric Sports Medicine Specialist Name Role Phone Sariah Vickers Primary Care Provider [phone] Encounter Details Date Type Department Care Team (Latest Contact Info) Description 04/15/2024 Travel Social History Tobacco Use Types Packs/Day [...] Description 04/23/2024 11:30 AM EST Clinical Support [address] [address] Azeb Hall, RN 505 [place] [address] 04/29/2024 11:30 AM EDT Medication Management [address] [address] Yuri Pierre, MikeD [address] [place] [address] 07/15/2024 1:00 PM EDT Office Visit [facility] MEDICINE [address] [place] [address] Sariah Vickers ANP 230 [place] [address] 08/04/2024 1:00 PM EDT Office Visit [facility] ADULT DENTAL [address] [place] [address] Nuvia Duarte 230 [place] [address] documented as of this encounter Goals Goal [...] documented as of this encounter Care Teams Pediatric Sports Medicine Specialist Relationship Specialty Start Date End Date Sariah Vickers ANP 230 [place] [address] PCP - General Family Medicine 09/23/19 documented as of this encounter
--- OUTSIDE RECORDS SUMMARY | 2024-04-20 16:04 | XMS_ITS | Encounter Summary ---
Author Organization [employer] [facility] Address 75 [facility] 7t [place] [address] Care Team Providers Care Court Of Appeals Judge Name Role Phone Sariah Vickers Primary Care Provider [phone] Reason for Referral * Medications - Closed Specialty Diagnoses / Procedures Referred By Queenie gomez Referred To Contact Diagnoses Chronic bilateral low back pain, unspecified whether sciatica present Sariah Vickers ANP 230 [place] [address] Phone: tel: fax: Referral ID Status Reason Start Date Expiration Date Visits Re quested Visits Authorized [id number] Closed 1 1 Reason for Visit * Reason Comments Med Refill Encounter Details Date Type Department Care Team (Late st Contact Info) Description 04/02/2024 Refill [facility] [address] [place] [address] Sariah Vickers ANP 230 [place], [place] [phone] Essential hypertension; Chronic SI joint pain; Chronic [...] Description 04/23/2024 11:30 AM EST Clinical Support [address] [address] Azeb Hall, MARTIN 505 [place] [address] 04/29/2024 11:30 AM EDT Medication Management [address] [address] Yuri Pierre, PharmD [address] [place] [address] 07/15/2024 1:00 PM EDT Office Visit [facility] [address] [place] [address] Sariah Vickers, ANP [address] [place] [address] 08/04/2024 1:00 PM EDT Office Visit [facility] ADULT DENT[facility] 230 [place] [address] Nuvia Duarte 230 [place] [address] documented as of this encounter Goals Goal [...] documented as of this encounter Care Teams Court Of Appeals Judge Relationship Specialty Start Date End Date Sariah Vickers ANP 230 [place] [address] PCP - General Family Medicine 09/23/19 documented as of this encounter
--- OUTSIDE RECORDS SUMMARY | 2024-04-20 16:04 | XMS_ITS | Encounter Summary ---
Author Organization [employer] Address [address] [facility] [address] 7t [place] [address] Care Team Providers Care Client Solutions Manager Name Role Phone Sariah Vickers Primary Care Provider [phone] Reason for Visit * Reason Comments Med Refill Encounter Details Date Type Department Care Team ([facility] st Contact Info) Description 07/10/2023 Refill [facility] WALK-IN CENTER [address] [place] [address] Sariah Vickers ANP 230 [place] [address] Chronic SI joint pain Social History Tobacco [...] Support [facility] MEDICINE [address] [place] [address] Azeb Hall, MARTIN 505 [place] [address] 04/29/2024 11:30 AM EDT Medication Management [address] [address] Yuri Pierre, PharmD [address] [place] [address] 07/15/2024 1:00 PM EDT Office Visit [address] [address] Sariah Vickers ANP 230 [place] [address] 08/04/2024 1:00 PM EDT Office Visit [facility] ADULT DENTAL [address] [place] [address] Nuvia Duarte 230 [place] [address] documented as of this encounter Goals Goal [...] as of this encounter Care Teams Client Solutions Manager Relationship Specialty Start Date End Date Sariah Vickers ANP [address] [place] [address] PCP - General Family Medicine 09/23/19 documented as of this encounter
--- OUTSIDE RECORDS SUMMARY | 2024-04-20 16:04 | XMS_ITS | Encounter Summary ---
Author Organization [employer] Address [address] [facility] 7t [place] [address] Care Team Providers Care Passementerie Worker Name Role Phone Sariah Vickers Primary Care Provider [phone] Reason for Visit * Reason Comments Med Refill Encounter Details Date Type Department Care Team ([facility] st Contact Info) Description 05/09/2023 Refill [facility] MEDICINE [address] [place] [address] Sariah Vickers ANP 230 [place] [address] High cholesterol Social History Tobacco Use Types [...] 04/23/2024 11:30 AM EST Clinical Support [address] [address] Azeb Hall RN 505 [place] [address] 04/29/2024 11:30 AM EDT Medication Management [address] [address] Yuri Pierre, PharmD [address] [place] [address] 07/15/2024 1:00 PM EDT Office Visit [facility] MEDICINE [address] [place] [address] Sariah Vickers ANP 230 [place] [address] 08/04/2024 1:00 PM EDT Office Visit [facility] ADULT DENTAL [address] [place] [address] Nuvia Duarte 230 [place] [address] documented as of this encounter Goals Goal [...] hypercholesterolemia documented in this encounter Care Teams Passementerie Worker Relationship Specialty Start Date End Date Sariah Vickers ANP [address] [place] [address] PCP - General Family Medicine 09/23/19 documented as of this encounter
--- OUTSIDE RECORDS SUMMARY | 2024-04-20 16:04 | XMS_ITS | Encounter Summary ---
Author Organization [employer] Address [address] [facility] 7t [place] [address] Care Team Providers Care Home Stager Name Role Phone Anthony Ruiz Primary Care Provider [phone] Encounter Details Date Type Department Care Team (Late st Contact Info) Description 04/12/2024 Orders Only [facility] External Provider, [facility] Social History Tobacco Use Types Packs/Day Years [...] Description 04/23/2024 11:30 AM EST Clinical Support [facility] MEDICINE [address] [place] [address] Azeb Hall RN 505 [place] [address] 04/29/2024 11:30 AM EDT Medication Management [address] [address] Yuri Pierre, PharmD [address] [place] [address] 07/15/2024 1:00 PM EDT Office Visit [facility] MEDICINE [address] [place] [address] Anthony Ruiz ANP 230 [place] [address] 08/04/2024 1:00 PM EDT Office Visit [facility] ADULT DENTAL [address] [place] [address] Nuvia Duarte 230 [place] [address] documented as of this encounter Goals Goal [...] Procedure Name Priority Date/Time Associated Diagnosis Comments BI MAMMOGRAM SCREENING TOMOSYNTHESIS BILATERAL Routine 04/12/2024 1:48 PM EST documented in this encounter Results * BI Mammogram Screening Tomosynthesis Bilateral (04/12/2024 1:48 PM EST) Anatomical Region Laterality Modality Breast Bilateral Mammography 04/12/2024 1:48 PM EST Narrative 04/17/2024 12:38 PM EST ? [facility] ? [address] ?[place] Garcia [address] ? Mammography Report ? Signed ? Patient: Nuvia Fay ?MR ?? #: [id number] ? : 1960 ?Acct:[id number] ? Age/Sex: 63 / F ?ADM Date: 04/12/24 ? Loc: HO.MAMMO ? Attending Dr: Monica Lozano CNM ? Ordering Physician: Monica Lozano CNEstefania ?Results: 2Beni ?? gn Findings ? Date of Service: 04/12/24 ?Follow Up: 1 Year From Orig ?? inal Mammogram ? Procedure(s): MM tomosynthesis screening BI ?? Accession Number(s): [id number] ? cc: Monica Lozano CNM; ANTHONY RUIZ [...] DD/ 1348 ? TD/TT: 04/12/24 1405 ? Patient'S Librarian: ? Procedure Note Otoniel, Image - 04/17/2024 [facility] [address] [place] [address] [place] [address] Mammography Report Signed Patient: Nuvia Fay EMR #: [id number] : 1Acct:[id number] Age/Sex: 63 / FADM Date: 04/12/24 Loc: AMARJIT Attending Dr: Monica Lozano CNM Ordering Physician: Monica LozanoMResults: 2Beni gn Findings Date of Service: 04/12/24Follow Up: 1 Year From Orig inal Mammogram Procedure(s): MM tomosynthesis screening BI Accession Number(s): [id number] cc: Monica Lozano CNM; ANTHONY RUIZ KEYBOARDING CLERK EXAMINATION: MM SCREENING DIGITAL BREAST TOMOSYNTHESIS, BILATERAL [...] by: Cherrie Roberts DO 04/17/2024 12:35 PM [facility] Dictated By: Cherrie Roberts DO Signed By: <Electronically signed by Cherrie Roberts DO in OV> 04/17/24 1235 DD/ 1348 TD/TT: 04/12/24 1405 Patient'S Librarian: [facility] External Provider IMG BI PROCEDURES Edited Result - Final documented in this encounter Visit Diagnoses Not on filedocumented in this encounter Additional Health Concerns Assessment Noted Time PHQ-9 Depression Total Score: 12 024 2:58 PM EDT documented as of this encounter Care Teams Home Stager Relationship Specialty Start Date End Date Anthony Ruiz ANP 230 [place] [address] PCP - General Family Medicine 09/23/19 documented as of this encounter
--- OUTSIDE RECORDS SUMMARY | 2024-04-20 16:04 | XMS_ITS | Encounter Summary ---
Author Organization [employer] [facility] Address [address] [facility] 7t [place] [address] Care Team Providers Care Zoo Keeper Name Role Phone Sariah Vickers Primary Care Provider [phone] Reason for Visit * Reason Onset Date Comments Nurse Triage 01/14/2023 Encounter Details Date Type Department Care Team ([facility] st Contact Info) Description 01/14/2023 Telephone [facility] MEDICINE 230 [place] [address] Sariah Vickers ANP 230 [place] [address] Nurse Triage Social History Tobacco Use Types [...] t he electric, gas, oil or water [employer] threatened to shut off services in your [...] 01/14/2023 9:26 AM EST Called pt. Via [employer] electronic tech [phone] Kelly. Pt. States that she has been having a fire feeling in her legs. Its like A burning that goes down her legs . Pt. Unsure if it because of her Diabetes. Pt. Went to [facility] ED for pain on her left side [...] at 10am. Will send note to clinical child care group leader to have note put in chart . [...] Severe pain now, pt was seen at [facility] on 01/13 for pain in leg. Pt is still symptomatic The caller accepted this outcome Please contact pt at [phone] (public transit specialist needed) documented in this encounter Plan of Treatment Upcoming Encounters Date Type Department Care Team ([facility] st Contact Info) Description 04/23/2024 11:30 AM EST Clinical Support [facility] MEDICINE [address] [place] [address] Azeb Hall, MARTIN 505 [place] [address] 04/29/2024 11:30 AM EDT Medication Management [address] [address] Yuri Pierre, MikeD [address] [place] [address] 07/15/2024 1:00 PM EDT Office Visit [facility] MEDICINE [address] [place] [address] Sariah Vickers ANP 230 [place] [address] 08/04/2024 1:00 PM EDT Office Visit [facility] ADULT DENTAL 230 [place] [address] Nuvia Duarte 230 [place] [address] documented as of this encounter Goals Goal [...] on filedocumented in this encounter Care Teams Zoo Keeper Relationship Specialty Start Date End Date Sariah Vickers, ANP 230 [place] [address] PCP - General Family Medicine 09/23/19 documented as of this encounter
== END 2024-04-20 12:57 | disposition home or self-care (01) ==
LOC: HO.XRAY 12:56
PROVIDERS: PCP Nurse Practitioner Primary Care; Visit Provider Emergency Medicine
DX: R07.89 Other chest pain (principal)
CPT/HCPCS: 36415; 71046; 85379

== ENCOUNTER → 2024-04-20 13:03 | Outpatient (BNV) | payer OTHER, SELFPAY | PROVIDERS: PCP Nurse Practitioner Primary Care; Visit Provider Radiology Diagnostic Radiology | DX: R07.89 Other chest pain (principal); R05.9 Cough, unspecified | CPT/HCPCS: 71046 ==

== ENCOUNTER 2024-04-28 12:44 | Outpatient (AMB) | payer OTHER, SELFPAY ==
[2024-04-28 13:04] VITALS: BP 120/77; PULSE 84; O2SAT 96
--- NOTE | 2024-04-28 13:04 | A.OFFVIS_ITS ---
Vital Signs 04/28/24 13:04 Weight 198 lb 6.656 oz BP 120/77 Blood Pressure Location Rt brachial Position Sitting Pulse 84 Pulse Source Doppler Pulse Oximetry (%) 96 Oxygen Delivery Method Room Air Intake Visit Reasons: pulm clearance/umbilically hernia repair Rate And Cost Analyst Required: Yes Rate And Cost Analyst Name: Samantha Ledesma C.L.M Allergies aspirin [Aspirin] Allergy (Mild, Verified 04/06/24 13:20) ITCHY THROAT azithromycin Allergy (Unknown, Verified 04/06/24 13:20) Unknown naproxen Allergy (Unknown, Verified 04/06/24 13:20) Unknown simvastatin Allergy (Unknown, Verified 04/06/24 13:20) Unknown Fish Containing Products Allergy (Verified 04/06/24 13:20) Swelling vancomycin Allergy (Verified 04/06/24 13:20) Rash onion [ONION] Adverse Reaction (Mild, Verified 04/06/24 13:20) RED FACE HPI HPI pulm clearance/umbilically hernia repair: Details: 63-year-old lady, former 30+ pack-year smoker, quit 2014 followed for severe persistent allergic asthma/COPD overlap syndrome and environmental allergies. She continues on Wixela, Spiriva, albuterol MDI, and Xolair with good symptomatic control. She denies recent acute exacerbations. Patient is being planned for hernia repair. [facility] Medical History (Updated 04/28/24 @ 14:00 by Ron Preciado MD) Environmental allergies Trochanteric bursitis of right hip Patellofemoral arthritis of left knee Dry mouth Type 2 diabetes mellitus with hyperglycemia Menopausal state Type 2 diabetes mellitus MOCK (dyspnea on exertion) Kidney stone on left side Leg pain Tear of medial meniscus of left knee Abnormal finding on ultrasound Abnormal ultrasound of kidney Bilateral renal cysts Severe persistent asthma Asthma Bilateral hand pain Bilateral knee pain Carpal tunnel syndrome of right wrist Cubital tunnel syndrome on right Renal calculi UTI (urinary tract infection) History of kidney stones COVID-19 COVID-19 COPD exacerbation Bronchitis Chest pain Acute asthma exacerbation Tubular adenoma of colon Vulvovaginitis Bronchitis Candidiasis of mouth and esophagus Yeast infection Papanicolaou smear for cervical cancer screening Preop pulmonary/respiratory exam Allergic rhinitis Anxiety and depression Fibromyalgia HTN (hypertension) PTSD (post-traumatic stress disorder) Vertigo Diabetes Spondylosis of cervical region without myelopathy or radiculopathy Low vitamin D level Non-toxic multinodular goiter Hypothyroidism DVT (deep venous thrombosis) Cocaine abuse Surgical History (Updated 04/06/24 @ 13:50 by Yaniv Frank MD) History of esophagogastroduodenoscopy (EGD) H/O colonoscopy with polypectomy History of selective injection of anesthetic agent around lumbar nerve root Hx of right breast biopsy History of hysterectomy History of lithotripsy Family History Father No problems noted. 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 Female Reproductive History Menstrual Age of Menarche: 10 Review of Systems Const Denies daytime sleepiness, Denies excessive sweating, Denies fatigue, Denies fever(s), Denies lethargy, Denies malaise, Denies night sweats, Denies snoring and Denies weight loss Eyes Denies blurry vision and Denies itchy eyes ENT Denies nasal congestion, Denies post nasal drip, Denies sinus pain, Denies sinus pressure and Denies other ( Thrush) Card Denies chest pain, Denies pedal edema, Denies dyspnea, Denies orthopnea and Den ies paroxysmal nocturnal dyspnea Resp Denies cough, Denies hemoptysis, Denies excessive phlegm production, Denies dyspnea, Denies snoring and Denies wheezing GI Denies abdominal pain and Denies heartburn Musc Denies myalgias, Denies arthralgias and Denies joint swelling Skin/Breast Denies rash Neuro Denies memory loss and Denies seizure-like activity Psych Denies abnormal sleep pattern, Denies anxiety and Denies memory loss Endo Denies excessive sweating, Denies fatigue and Denies heat intolerance Bruno/Lymph Denies easy bruising Aller/Immun Denies itchy eyes, Denies seasonal rhinorrhea and Denies wheezing Physical Exam Vital Signs: Last Vital Signs Pulse 84 04/28/24 13:04 BP 120/77 04/28/24 13:04 Pulse Ox 96 04/28/24 13:04 Oxygen Delivery Method Room Air 04/28/24 13:04 Const General: no acute distress and alert Nutritional Appearance: not obese Orientation/consciousness: Other orientation findings ( oriented) HEENT Head: Yes atraumatic Eyes General: appearance normal, both eyes and all related structures Sclerae: sclerae normal EOM: EOMs intact bilaterally Neck Neck: Yes supple Lymphatic: no lymphadenopathy noted Resp Effort & Inspection: normal respiratory effort and no use of accessory muscles Auscultation: clear to auscultation bilaterally Cardio Rate: regular rate Rhythm: regular rhythm Heart sounds: no gallops, no murmurs and no rubs Skin General skin exam: other ( warm) Extrem General: No clubbing, No cyanosis and No edema Assessment & Plan Assessment & Plan (1) Asthma-COPD overlap syndrome: Code(s): J44.89 - Other specified chronic obstructive pulmonary disease Category: Medical Plan: Well controlled on current regimen of Xolair, duo nebs, Spiriva, Singulair, and albuterol MDI. Continue current regimen. (2) Environmental allergies: Code(s): Z91.09 - Other allergy status, other than to drugs and biological substances Category: Medical Plan: Well controlled on Xolair and Singulair. Continue current regimen. (3) Pulmonary hypertension, pre-operative cardiovascular examination: Code(s): Z01.810 - Encounter for preprocedural cardiovascular examination; I27.20 - Pulmonary hypertension, unspecified Category: Medical Plan: At this time patient is at low risk for pulmonary perioperative complications for the proposed hernia repair under general anesthesia. Medications: New prednisone 40 mg (2 x 20 mg) PO DAILY 10 tabs 0RF Coding Level of Care Code Est Pt Level 4 (04480) Complex EM visit Add On G2211 Diagnoses Asthma-COPD overlap syndrome J44.89 Environmental allergies Z91.09 Pulmonary hypertension, pre-operative cardiovascular examination Z01.810; I27.20
--- OUTSIDE RECORDS SUMMARY | 2024-04-28 14:46 | XMS_ITS | Encounter Summary ---
Author Organization [employer] Address [address] [facility] 7t [place] [address] Care Team Providers Care Rotary Dump Operator Name Role Phone Sariah Vickers Primary Care Provider Reason for Visit * Reason Comments Med Refill Encounter Details Date Type Department Care Team ([facility] st Contact Info) Description 08/22/2023 Refill [facility] MEDICINE 230 [place] [address] Sariah Vickers ANP 230 [place] [address] Neck pain Social History Tobacco Use Types [...] Care Team (Late st Contact Info) Description 04/29/2024 11:30 AM EDT Medication Management [address] [address] uYri Pierre, MikeD [address] [place] [address] 07/02/2024 11:00 AM EDT Clinical Support [address] [address] Azeb Hall, RN 505 [place] [address] 07/15/2024 1:00 PM EDT Office Visit [address] [address] Sariah Vickers ANP [address] [place] [address] 08/04/2024 1:00 PM EDT Office Visit [facility] ADULT DENTAL [address] [place] [address] Nuvia Duarte [address] [place] [address] documented as of this encounter Goals Goal [...] documented as of this encounter Care Teams Rotary Dump Operator Relationship Specialty Start Date End Date Sariah Vickers ANP [address] [place] [address] PCP - General Family Medicine 09/23/19 documented as of this encounter
--- OUTSIDE RECORDS SUMMARY | 2024-04-28 14:46 | XMS_ITS | Encounter Summary ---
Author Organization [employer] [facility] Address [address] [place] [address] 7t [place] [address] Care Team Providers Care Formula Maker Name Role Phone Sariah Vickers Primary Care Provider [phone] Encounter Details Date Type Department Care Team (Latest Contact Info) Description 05/15/2018 Abstract [facility] CONVERSIONS Dental, Provider, DDS Social History [...] Description 04/29/2024 11:30 AM EDT Medication Management [facility] MEDICINE [address] [place] [address] Yuri Pierre, PharmD [address] [place] [address] 07/02/2024 11:00 AM EDT Clinical Support [facility] MEDICINE [address] [place] [address] Azeb Hall RN 505 [place] [address] 07/15/2024 1:00 PM EDT Office Visit [facility] MEDICINE [address] [place] [address] Sariah Vickers ANP [address] [place] [address] 08/04/2024 1:00 PM EDT Office Visit [facility] ADULT DENTAL 230 [place], [place] [phone] Brendan Duartearis 230 [place], [place] [phone] documented as of this encounter Visit Diagnoses Not on filedocumented in this encounter Care Teams Formula Maker Relationship Specialty Start Date End Date Sariah Vickers ANP 230 [place] [address] PCP - General Family Medicine 09/23/19 documented as of this encounter
--- OUTSIDE RECORDS SUMMARY | 2024-04-28 14:46 | XMS_ITS | Encounter Summary ---
Author Organization [facility] Address [address] [place] [address] 7t [place] [address] Care Team Providers Care Paraeducator Name Role Phone Sariah Vickers Primary Care Provider [phone] Encounter Details Date Type Department Care Team (Late Contact Info) Description 02/05/2022 Abstract [facility] MEDICINE [address] [place] [address] Sariah Vickers ANP 230 [place] [address] Social History Tobacco Use Types Packs/Day Years [...] Department Care Team (Late Contact Info) Description 04/29/2024 11:30 AM EDT Medication Management [facility] MEDICINE [address] [place] [address] Yuri Pierre, Dileep [address] [place] [address] 07/02/2024 11:00 AM EDT Clinical Support [address] [address] Azeb Hall, RN 505 [place] [address] 07/15/2024 1:00 PM EDT Office Visit [facility] MEDICINE [address] [place] [address] Sariah Vickers ANP 230 [place] [address] 08/04/2024 1:00 PM EDT Office Visit [facility] ADULT DENTAL [address] [place] [address] Nuvia Duarte 230 [place] [address] documented as of this encounter Visit Diagnoses Not on filedocumented in this encounter Care Teams Paraeducator Relationship Specialty Start Date End Date Sariah Vickers ANP [address] [place] [address] PCP - General Family Medicine 09/23/19 documented as of this encounter
--- OUTSIDE RECORDS SUMMARY | 2024-04-28 14:46 | XMS_ITS | Encounter Summary ---
Author Organization [email or web address] [facility] Address [address] [place] [address] 7t [place] [address] Care Team Providers Care Accounts Payable Lead Name Role Phone Sariah Vickers Primary Care Provider [phone] Encounter Details Date Type Department Care Team (Latest Contact Info) Description 06/20/2021 Abstract [facility] CONVERSIONS Dental, Provider, DDS Social [...] Description 04/29/2024 11:30 AM EDT Medication Management [address] [address] Yuri Pierre, PharmD [address] [place] [address] 07/02/2024 11:00 AM EDT Clinical Support [facility] MEDICINE [address] [place] [address] Azeb Hall, MARTIN 505 [place] [address] 07/15/2024 1:00 PM EDT Office Visit [facility] MEDICINE [address] [place] [address] Sariah Vickers ANP [address] [place] [address] 08/04/2024 1:00 PM EDT Office Visit [facility] ADULT DENTAL 230 [place], [place] [phone] Brendan Duartearis 230 [place], [place] [phone] documented as of this encounter Visit Diagnoses Not on filedocumented in this encounter Care Teams Accounts Payable Lead Relationship Specialty Start Date End Date Sariah Vickers ANP 230 [place] [address] PCP - General Family Medicine 09/23/19 documented as of this encounter
--- OUTSIDE RECORDS SUMMARY | 2024-04-28 14:46 | XMS_ITS | Encounter Summary ---
Author Organization [employer] Address [address] [facility] 7t [place] [address] Care Team Providers Care Quality Control Director Name Role Phone Sariah Vickers Primary Care Provider [phone] Reason for Visit * Reason Comments Med Refill Encounter Details Date Type Department Care Team ([facility] st Contact Info) Description 03/09/2024 Refill [facility] MED [facility] PEDS [address] [place] [address] Sariah Vickers ANP 230 [place] [address] Neck pain Social History Tobacco Use Types [...] Description 04/29/2024 11:30 AM EDT Medication Management [address] [address] Yuri Pierre, Dileep [address] [place] [address] 07/02/2024 11:00 AM EDT Clinical Support [address] [address] Azeb Hall, RN 505 [place] [address] 07/15/2024 1:00 PM EDT Office Visit [address] [address] Sariah Vickers ANP [address] [place] [address] 08/04/2024 1:00 PM EDT Office Visit [facility] ADULT DENTAL [address] [place] [address] Nuvia Duarte [address] [place] [address] documented as of this encounter Goals Goal [...] documented as of this encounter Care Teams Quality Control Director Relationship Specialty Start Date End Date Sariah Vickers ANP [address] [place] [address] PCP - General Family Medicine 09/23/19 documented as of this encounter
--- OUTSIDE RECORDS SUMMARY | 2024-04-28 14:46 | XMS_ITS | Encounter Summary ---
Author Organization [facility] Address [address] [place] [address] 7t [place] [address] Care Team Providers Care Sagger Filler Name Role Phone Sariah Vickers ANP Primary Care Provider [phone] Encounter Details Date Type Department Care Team (Late st Contact Info) Description 01/09/2022 Abstract [facility] ADULT D[facility]AL [address] [place] [address] Dental, Provider, DDS Social History Tobacco Use [...] Description 04/29/2024 11:30 AM EDT Medication Management [facility] MEDICINE [address] [place] [address] Yuri Pierre, PharmD [address] [place] [address] 07/02/2024 11:00 AM EDT Clinical Support [facility] [address] [place] [address] Azeb Hall, MARTIN 505 [place] [address] 07/15/2024 1:00 PM EDT Office Visit [facility] [address] [place] [address] Sariah Vickers ANP 230 [place] [address] 08/04/2024 1:00 PM EDT Office Visit [facility]ULT [facility] [address] [place] [address] Nuvia Duarte [address] [place] [address] documented as of this encounter Procedures Procedure [...] on filedocumented in this encounter Care Teams Sagger Filler Relationship Specialty Start Date End Date Sariah Vickers ANP 230 [place] [address] PCP - General Family Medicine 09/23/19 documented as of this encounter
--- OUTSIDE RECORDS SUMMARY | 2024-04-28 14:46 | XMS_ITS | Encounter Summary ---
Author Organization [facility] Address [address] [place] [address] 7t [place] [address] Care Team Providers Care Monogram Maker Name Role Phone Sariah Vickers Primary Care Provider [phone] Reason for Visit * Reason Comments Med Refill Encounter Details Date Type Department Care Team (Late st Contact Info) Description 03/03/[address] [facility] MED[facility]INE 230 [place] [address] Sariah Vickers ANP 230 [place] [address] Social History Tobacco Use Types Packs/Day Years [...] Description 04/29/2024 11:30 AM EDT Medication Management [address] [address] Yuri Pierre, MikeD [address] [place] [address] 07/02/2024 11:00 AM EDT Clinical Support [address] [address] Azeb Hall, MARTIN 505 [place] [address] 07/15/2024 1:00 PM EDT Office Visit [address] [address] Sariah Vickers ANP [address] [place] [address] 08/04/2024 1:00 PM EDT Office Visit [facility] ADULT DENTAL [address] [place] [address] Felicia, Nuvia [address] [place] [address] documented as of this encounter Visit Diagnoses Not on filedocumented in this encounter Care Teams Monogram Maker Relationship Specialty Start Date End Date Sariah Vickers ANP [address] [place] [address] PCP - General Family Medicine 09/23/19 documented as of this encounter
--- OUTSIDE RECORDS SUMMARY | 2024-04-28 14:46 | XMS_ITS | Encounter Summary ---
Author Organization [facility] Address [address] [place] [address] 7t [place] [address] Care Team Providers Care Early Childhood Services Coordinator Name Role Phone Sariah Vickers Primary Care Provider [phone] Reason for Visit * Reason Comments Med Refill Encounter Details Date Type Department Care Team (Late Contact Info) Description 02/06/2022 Refill [facility] MED[facility]INE [address] [place] [address] Sariah Vickers ANP 230 [place] [address] Social History Tobacco Use Types Packs/Day Years [...] Description 04/29/2024 11:30 AM EDT Medication Management [facility] MED[facility] [address] [place] [address] Yuri Pierre, Dileep 230 [place] [address] 07/02/2024 11:00 AM EDT Clinical Support [address] [address] Azeb Hall, RN 505 [place] [address] 07/15/2024 1:00 PM EDT Office Visit [facility] MED[facility]INE [address] [place] [address] Sariah Vickers ANP 230 [place] [address] 08/04/2024 1:00 PM EDT Office Visit [facility] ADULT DENTAL [address] [place] [address] Nuvia Duarte 230 [place] [address] documented as of this encounter Visit Diagnoses Not on filedocumented in this encounter Care Teams Early Childhood Services Coordinator Relationship Specialty Start Date End Date Sariah Vickers ANP [address] [place] [address] PCP - General Family Medicine 09/23/19 documented as of this encounter
--- OUTSIDE RECORDS SUMMARY | 2024-04-28 14:46 | XMS_ITS | Encounter Summary ---
Author Organization [employer] Address [address] [facility] 7t [place] [address] Care Team Providers Care Cloth Covered Helmet Puller Name Role Phone Sariah Vickers Primary Care Provider [phone] Reason for Visit * Reason Comments Med Refill Encounter Details Date Type Department Care Team (Late Contact Info) Description 09/13/2022 Refill [facility] [address] [place] [address] Sariah Vickers ANP 230 [place] [address] Severe persistent allergic asthma without complication Social [...] Department Care Team ([facility] Contact Info) Description 04/29/2024 11:30 AM EDT Medication Management [address] [address] Yuri Pierre, MikeD [address] [place] [address] 07/02/2024 11:00 AM EDT Clinical Support [address] [address] Azeb Hall, MARTIN 505 [place] [address] 07/15/2024 1:00 PM EDT Office Visit [address] [address] Sariah Vickers ANP [address] [place] [address] 08/04/2024 1:00 PM EDT Office Visit [facility] ADULT DENTAL [address] [place] [address] Nuvia Duarte [address] [place] [address] documented as of this encounter Visit Diagnoses Diagnosis Severe persistent allergic asthma without complication documented in this encounter Care Teams Cloth Covered Helmet Puller Relationship Specialty Start Date End Date Sariah Vickers ANP [address] [place] [address] PCP - General Family Medicine 09/23/19 documented as of this encounter
--- OUTSIDE RECORDS SUMMARY | 2024-04-28 14:46 | XMS_ITS | Encounter Summary ---
Author Organization [facility] Address [address] [place] [address] 7t [place] [address] Care Team Providers Care Heating And Cooling Technician Name Role Phone Sariah Vickers Primary Care Provider [phone] Reason for Visit * Reason Onset Date Comments Nurse Triage 11/01/2022 Encounter Details Date Type Department Care Team (Late st Contact Info) Description 11/01/2022 Telephone [facility] MEDICINE 230 [place] [address] Sariah Vickers ANP [address] [place] [address] Nurse Triage Social History Tobacco Use Types [...] 11/01/2022 3:51 PM EDT Triage call with [employer] [employer] [id number] Pt reports blood sugars have been high [...] Description 04/29/2024 11:30 AM EDT Medication Management [address] [address] Yuri Pierre, PharmD [address] [place] [address] 07/02/2024 11:00 AM EDT Clinical Support [address] [address] Azeb Hall, MARTIN 505 [place] [address] 07/15/2024 1:00 PM EDT Office Visit [address] [address] Sariah Vickers, ANP [address] [place] [address] 08/04/2024 1:00 PM EDT Office Visit [facility] ADULT DENTAL [address] [place], [place] [phone] Nuvia Duarte 230 [place] [address] documented as of this encounter Goals Goal Patient Goal Type Associated Problems Recent Progress Patient-Stated? Author Blood Pressure < 140/90 Blood Pressure 124/93(2024 11:36 AM EST) No Phanis-Gambl Veronica urbinasa, PharmD Record Your Blood Sugar As Directed General No Phanis-GambVeronica bucksa, PharmD Hemoglobin A1c < 7 Result Component 6.6( 8:44 AM EST) No Phanis-GambAida buck, PharmD documented as of this encounter Visit Diagnoses Not on filedocumented in this encounter Care Teams Heating And Cooling Technician Relationship Specialty Start Date End Date Sariah Vickers ANP [address] [place] [address] PCP - General Family Medicine 09/23/19 documented as of this encounter
--- OUTSIDE RECORDS SUMMARY | 2024-04-28 14:46 | XMS_ITS | Encounter Summary ---
Author Organization [employer] [facility] Address [address] [place] [address] 7t [place] [address] Care Team Providers Care Tinner Automatic Name Role Phone Sariah Vickers Primary Care Provider [phone] Encounter Details Date Type Department Care Team (Latest Contact Info) Description 04/14/2020 Abstract [facility] CONVERSION[facility] Dental, Provider, DDS Social History [...] Description 04/29/2024 11:30 AM EDT Medication Management [address] [address] Yuri Pierre, PharmD [address] [place] [address] 07/02/2024 11:00 AM EDT Clinical Support [facility] MEDICINE [address] [place] [address] Azeb Hall, MARTIN 505 [place] [address] 07/15/2024 1:00 PM EDT Office Visit [facility] MEDICINE [address] [place] [address] Sariah Vickers ANP [address] [place] [address] 08/04/2024 1:00 PM EDT Office Visit [facility] ADULT DENTAL 230 [place], [place] [phone] Brendan Duartearis 230 [place], [place] [phone] documented as of this encounter Visit Diagnoses Not on filedocumented in this encounter Care Teams Tinner Automatic Relationship Specialty Start Date End Date Sariah Vickers ANP 230 [place] [address] PCP - General Family Medicine 09/23/19 documented as of this encounter
--- OUTSIDE RECORDS SUMMARY | 2024-04-28 14:46 | XMS_ITS | Encounter Summary ---
Author Organization [employer] Address [address] [place] [address] 7t [place] [address] Care Team Providers Care Regulatory Specialist Name Role Phone Sariah Vickers Primary Care Provider Reason for Visit * Reason Onset Date Comments Durable Medical Equipment 03/15/2022 Encounter Details Date Type Department Care Team (Late st Contact Info) Description 03/15/2022 Telephone [facility] MED[facility]INE 230 [place] [address] Sariah Vickers ANP 230 [place] [address] Durable Medical Equipment Social History Tobacco Use [...] Description 04/29/2024 11:30 AM EDT Medication Management [address] [address] Yuri Pierre, PharmD [address] [place] [address] 07/02/2024 11:00 AM EDT Clinical Support [address] [address] Azeb Hall, RN 505 [place] [address] 07/15/2024 1:00 PM EDT Office Visit [facility] MED[facility] [address] [place] [address] Sariah Vickers ANP 230 [place] [address] 08/04/2024 1:00 PM EDT Office Visit [facility] ADULT DENTAL [address] [place] [address] Brendan Duartearis 230 [place] [address] documented as of this encounter Visit Diagnoses Not on filedocumented in this encounter Care Teams Regulatory Specialist Relationship Specialty Start Date End Date Sariah Vickers ANP [address] [place] [address] PCP - General Family Medicine 09/23/19 documented as of this encounter
--- OUTSIDE RECORDS SUMMARY | 2024-04-28 14:47 | XMS_ITS | Encounter Summary ---
Author Organization [facility] Address [address] [place] [address] 7t [place] [address] Care Team Providers Care Auto Service Instructor Name Role Phone Sariah Vickers Primary Care Provider [phone] Reason for Visit * Reason Comments Med Refill Encounter Details Date Type Department Care Team (Late st Contact Info) Description 03/26/2022 Refill [facility] [address] [place] [address] Sariah Vickers ANP 230 [place] [address] Social History Tobacco Use Types Packs/Day Years [...] Description 04/29/2024 11:30 AM EDT Medication Management [facility] [address] [place] [address] Yuri Pierre, Dileep 230 [place] [address] 07/02/2024 11:00 AM EDT Clinical Support [address] [address] Azeb Hall, RN 505 [place] [address] 07/15/2024 1:00 PM EDT Office Visit [facility] [address] [place] [address] Sariah Vickers ANP 230 [place] [address] 08/04/2024 1:00 PM EDT Office Visit [facility]ULT [facility] [address] [place] [address] Nuvia Duarte 230 [place] [address] documented as of this encounter Visit Diagnoses Not on filedocumented in this encounter Care Teams Auto Service Instructor Relationship Specialty Start Date End Date Sariah Vickers ANP [address] [place] [address] PCP - General Family Medicine 09/23/19 documented as of this encounter
--- OUTSIDE RECORDS SUMMARY | 2024-04-28 14:47 | XMS_ITS | Encounter Summary ---
Author Organization [employer] Address [address] [facility] 7t [place] [address] Care Team Providers Care Radius Grinder Name Role Phone Sariah Vickers Primary Care Provider [phone] Reason for Visit * Reason Onset Date Comments Med Refill 01/09/2024 Encounter Details Date Type Department Care Team ([facility] st Contact Info) Description 01/09/2024 Telephone [facility] MEDICINE [address] [place] [address] Sariah Vickers ANP 230 [place] [address] Med Refill Social History Tobacco Use Types [...] Description 04/29/2024 11:30 AM EDT Medication Management [address] [address] Yuri Pierre, MikeD [address] [place] [address] 07/02/2024 11:00 AM EDT Clinical Support [address] [address] Azeb Hall RN 505 [place] [address] 07/15/2024 1:00 PM EDT Office Visit [facility] MEDICINE [address] [place] [address] Sariah Vickers ANP [address] [place] [address] 08/04/2024 1:00 PM EDT Office Visit [facility] ADULT DENTAL [address] [place] [address] Nuvia Duarte [address] [place] [address] documented as of this encounter Goals Goal [...] documented as of this encounter Care Teams Radius Grinder Relationship Specialty Start Date End Date aSriah Vickers ANP [address] [place] [address] PCP - General Family Medicine 09/23/19 documented as of this encounter
--- OUTSIDE RECORDS SUMMARY | 2024-04-28 14:47 | XMS_ITS | Encounter Summary ---
Author Organization [employer] Address [address] [facility] 7t [place] [address] Care Team Providers Care Want Ad Receiver Name Role Phone Sariah Vickers Primary Care Provider [phone] Reason for Visit * Reason Comments Med Refill Encounter Details Date Type Department Care Team ([facility] st Contact Info) Description 12/17/2023 Refill [facility] MEDICINE 230 [place] [address] Sariah Vickers ANP 230 [place] [address] Chronic SI joint pain Social History Tobacco [...] Description 04/29/2024 11:30 AM EDT Medication Management [facility] MEDICINE [address] [place] [address] Yuri Pierre, Dileep [address] [place] [address] 07/02/2024 11:00 AM EDT Clinical Support [address] [address] Azeb Hall, RN 505 [place] [address] 07/15/2024 1:00 PM EDT Office Visit [facility] MEDICINE [address] [place] [address] Sariah Vickers ANP [address] [place] [address] 08/04/2024 1:00 PM EDT Office Visit [facility] ADULT DENTAL [address] [place] [address] Nuvia Duarte [address] [place] [address] documented as of this encounter Goals Goal [...] documented as of this encounter Care Teams Want Ad Receiver Relationship Specialty Start Date End Date Sariah Vickers ANP [address] [place] [address] PCP - General Family Medicine 09/23/19 documented as of this encounter
--- OUTSIDE RECORDS SUMMARY | 2024-04-28 14:47 | XMS_ITS | Encounter Summary ---
Author Organization [employer] Address [address] [facility] [address] 7t [place] [address] Care Team Providers Care Fitting Supervisor Name Role Phone Sariah Vickers Primary Care Provider [phone] Reason for Visit * Reason Comments Med Refill Encounter Details Date Type Department Care Team ([facility] st Contact Info) Description 10/03/2023 Refill [facility] 230 [place] [address] Sariah Vickers ANP 230 [place] [address] Chronic SI joint pain Social History Tobacco [...] Description 04/29/2024 11:30 AM EDT Medication Management [facility] MEDICINE [address] [place] [address] Yuri Pierre, MikeD [address] [place] [address] 07/02/2024 11:00 AM EDT Clinical Support [address] [address] Azeb Hall, RN 505 [place] [address] 07/15/2024 1:00 PM EDT Office Visit [address] [address] Sariah Vickers ANP [address] [place] [address] 08/04/2024 1:00 PM EDT Office Visit [facility] ADULT DENTAL [address] [place] [address] Nuvia Duarte [address] [place] [address] documented as of this encounter Goals Goal [...] documented as of this encounter Care Teams Fitting Supervisor Relationship Specialty Start Date End Date Sariah Vickers ANP [address] [place] [address] PCP - General Family Medicine 09/23/19 documented as of this encounter
--- OUTSIDE RECORDS SUMMARY | 2024-04-28 14:47 | XMS_ITS | Encounter Summary ---
Author Organization [employer] Address 75 [facility] 7t [place] [address] Care Team Providers Care Bulb Planter Name Role Phone Sariah Vickers Primary Care Provider [phone] Reason for Visit * Reason Comments Med Refill Encounter Details Date Type Department Care Team ([facility] st Contact Info) Description 01/06/2024 Refill [facility] MED & PEDS [address] [place] [address] Sariah Vickers ANP 230 [place] [address] Cervicalgia Social History Tobacco Use Types Packs/Day [...] Description 04/29/2024 11:30 AM EDT Medication Management [address] [address] Yuri Pierre, Dileep [address] [place] [address] 07/02/2024 11:00 AM EDT Clinical Support [address] [address] Azeb Hall, RN 505 [place] [address] 07/15/2024 1:00 PM EDT Office Visit [address] [address] Sariah Vickers ANP [address] [place] [address] 08/04/2024 1:00 PM EDT Office Visit [facility] ADULT DENTAL [address] [place] [address] Nuvia Duarte [address] [place] [address] documented as of this encounter Goals Goal [...] documented as of this encounter Care Teams Bulb Planter Relationship Specialty Start Date End Date Sariah Vickers ANP [address] [place] [address] PCP - General Family Medicine 09/23/19 documented as of this encounter
--- OUTSIDE RECORDS SUMMARY | 2024-04-28 14:47 | XMS_ITS | Encounter Summary ---
Author Organization [employer] [facility] Address [address] [facility] 7t [place] [address] Care Team Providers Care Belt Turner Name Role Phone Sariah Vickers Primary Care Provider [phone] Reason for Visit * Reason Onset Date Comments Nurse Triage 04/06/2024 Encounter Details Date Type Department Care Team ([facility] st Contact Info) Description 04/06/2024 Telephone [facility] MEDICINE 230 [place] [address] Sariah Vickers ANP 230 [place] [address] Nurse Triage Social History Tobacco Use Types [...] by Endo and refer to CDTM with [facility] pharmacist to continue DM management instead of Endo. Pt missed first appt in March. R/s for April, pt has upcoming appt with PCP. PCP out of office this week. Pt advised to follow up with Endo or to seek [facility] for evaluation of sx this week .Reviewed [facility] operating hours and that wait times vary. [...] requesting Ozempic The caller accepted this outcome. IVORIAN SPEAKER documented in this encounter Plan of Treatment Upcoming Encounters Date Type Department Care Team (Late st Contact Info) Description 04/29/2024 11:30 AM EDT Medication Management [facility] MEDICINE [address] [place] [address] Yuri Pierre, Dileep [address] [place] [address] 07/02/2024 11:00 AM EDT Clinical Support [address] [address] Azeb Hall RN 505 [place] [address] 07/15/2024 1:00 PM EDT Office Visit [facility] MEDICINE [address] [place] [address] Sariah Vickers ANP 230 [place] [address] 08/04/2024 1:00 PM EDT Office Visit [facility] ADULT DENTAL [address] [place] [address] Nuvia Duarte 230 [place] [address] documented as of this encounter Goals Goal [...] documented as of this encounter Care Teams Belt Turner Relationship Specialty Start Date End Date Sariah Vickers ANP 230 [place] [address] PCP - General Family Medicine 09/23/19 documented as of this encounter
--- OUTSIDE RECORDS SUMMARY | 2024-04-28 14:47 | XMS_ITS | Encounter Summary ---
Author Organization [employer] Address [address] [facility] 7t [place] [address] Care Team Providers Care Skeet Operator Name Role Phone Sariah Vickers Primary Care Provider [phone] Reason for Visit * Reason Onset Date Comments ER Follow-up 03/29/2024 Encounter Details Date Type Department Care Team ([facility] st Contact Info) Description 03/29/2024 Telephone [facility] 230 [place] [address] Candy Bains, RN 230 [place] [address] ER Follow-up Social History Tobacco Use Types [...] appt with general surgery Dr Frank at [facility] and that the surgeon told her that [...] Description 04/29/2024 11:30 AM EDT Medication Management [facility] 230 [place] [address] Yuri Pierre, PharmD [address] [place] [address] 07/02/2024 11:00 AM EDT Clinical Support [facility] [address] [place] [address] Azeb Hall RN 505 [place] [address] 07/15/2024 1:00 PM EDT Office Visit [facility] MED[facility] [address] [place] [address] Sariah Vickers ANP [address] [place] [address] 08/04/2024 1:00 PM EDT Office Visit [facility] ADULT DENTAL [address] [place] [address] Nuvia Duarte 230 [place], [place] documented as of this encounter Goals [...] documented as of this encounter Care Teams Skeet Operator Relationship Specialty Start Date End Date Sariah Vickers ANP [address] [place] [address] PCP - General Family Medicine 09/23/19 documented as of this encounter
--- OUTSIDE RECORDS SUMMARY | 2024-04-28 14:47 | XMS_ITS | Clinical Summary ---
Author Organization [employer] Address [address] [place] [address] Care Team Providers Care Assistant Scientist Name Role Phone Anthony Ruiz Primary Care Provider [phone] Allergies Active Allergy Reactions Criticality Noted Date [...] the morning. Active Blood Glucose Monitoring Suppl (Style on Screen Lite) w/Device kit USE DIRECTED 023 Active Lactobacillus-In ulin ([facility]) capsule TAKE 1 CAPSULE BY MOUTH [...] neuropathy, with long-term current use of insulin ([facility]) USE 1 SPRAY (3MG) IN ONE NOSTRIL [...] ions:Type 2 diabetes mellitus with hyperlipidemia (CMS/HCC) ([facility]) Inject 2 Units under the skin with breakfast, with lunch, and with evening meal. As needed as directed by provider 6 mL Active TechLite Plus Pen [place] 32G X 4 MM miscIndications: Type 2 diabetes mellitus with hyperlipidemia (CMS/HCC) ([facility]) USE DIRECTED THREE TIMES DAILY 100 each [...] s:Type 2 diabetes mellitus with hyperlipidemia (CMS/HCC) ([facility]) CHEW 4 TABLETS BY MOUTH NEEDED LOW FOR BLOOD SUGAR 50 tablet Active Ozempic, 0.25 or 0.5 MG/DOSE, 2 MG/3ML solution pen-injectorIndi cations:Type 2 diabetes mellitus with hyperlipidemia (CMS/HCC) ([facility]) INJECT 0.5 MG SUBCUTANEOUSLY EVERY 7 DAYS [...] DAILY RINSE MOUTH AFTER USING. 60 each 025 Active Continuous Glucose Sensor (FreeStyle Jalil 2 Sensor) miscIndications: Type 2 diabetes mellitus with hyperlipidemia (CMS/HCC) ([facility]) Apply 1 sensor every 14 days 2 each 025 Active Continuous Glucose Hop Worker (FreeStyle Jalil 2 [place]) deviceIndication s:Type 2 diabetes mellitus with hyperlipidemia (CMS/HCC) ([facility]) Use to check blood sugar at least [...] 6 HOURS NEEDED 60 tablet 025 Active traMADol (Ultram) 50 MG tabletIndication s:Cervicalgia TAKE 1 TABLET BY MOUTH EVERY TWELVE HOURS NEEDED FOR SEVERE PAIN 60 tablet 025 Active Continuous Glucose Hop Worker (FreeStyle Jalil 2 [place]) device Use to check blood sugar at [...] eorder (will not trigger notification to Pharmacy)) methylPREDNISolo ne (Medrol Dospak) 4 MG tablets Follow schedule on package instructions 21 tablet 025 2024 Active Problems Problem Noted Date Diagnosed Date Long-term current use of opiate analgesic 2024 Panniculitis affecting sacrum 02/23/2024 Assessment & Plan [...] her family. She will continue services with [facility] for OP therapy and psychiatry services. clinician will be available if needed during next medical appointment. PLAN: (check all that apply) Continue with current services (defined as services in the past 12 months) . Pt is engaged with OP therapy and psychiatry services with [facility] @ [facility] Excessive attrition of teeth, generalized 2023 [...] her family. She will continue services with [facility] for OP therapy and psychiatry services. clinician will be available if needed during next medical appointment. PLAN: (check all that apply) Continue with current services (defined as services in the past 12 months) . Pt is engaged with OP therapy and psychiatry services with [facility] @ [facility] Fibromyalgia 07/31/2022 Right foot pain 06/21/2022 [...] for possible plantar fasciitis -referred today to rescue instructor x ongoing discomfort -may need orthopedic shoes [...] individual therapy and psychiatry with N at [facility]. Sees psych provider every two months and therapist bi-weekly. Pt will reach out to clinician as needed. Assessment & Plan (04/10/2023 11:08 AM EST): PLAN: (check all that apply) Behavioral Health Integration Plan Patient Self Plan Patient to reach out to [facility] team as needed Assessment & Plan (08/07/2022 [...] healthy manner PLAN: 1. Follow up with [facility]: Not recommended for follow-up 2. Patient goal is: reduce anxiousness 3. Behavioral Recommendations a. Patient will comply with medication b. Patient may request to speak with a [facility] during next PCP visit, if needed Chronic [...] Encounters Date Type Department Care Team Description 04/26/2024 Refill [facility] MED & PEDS [address] [place] [address] Anthony Ruiz ANP Cervicalgia 04/23/2024 11:30 AM EST Clinical Support [address] [address] Azeb Hall, RN Long-term current use of opiate analgesic 04/23/2024 Telephone [facility] MED & PEDS [address] [place] [address] Azeb Hall, MARTIN 04/23/2024 Travel 04/21/2024 Telephone [facility] WALK-IN [address] [address] Chava Presley MD 04/20/2024 11:00 AM EST [facility] [address] [address] Chava Presley MD Posterior chest pain (Primary Dx); Asthma-COPD overlap syndrome (CMS/HCC); Neck pain 04/20/2024 Orders Only [facility] [address] [address] Chava Presley MD 04/15/2024 1:30 PM EST Office Visit [address] [address] Anthony Ruiz ANP Umbilical hernia without obstruction and without gangrene (Primary Dx); Type 2 diabetes mellitus with hyperlipidemia (CMS/HCC) ([facility]/HCC); Acute cough 04/15/2024 Travel 04/12/2024 Orders Only External Provider, [facility] 04/12/[address] [address] Anthony Ruiz ANP Chart Prep 04/06/[address] [address] Anthony Ruiz ANP Nurse Triage 04/06/2024 Refill [facility] MEDICINE [address] [place] [address] Anthony Ruiz ANP Severe persistent asthma without complication 04/02/2024 Refill [facility] CHC MED & PEDS [address] [place] [address] Anthony Ruiz ANP Neck pain 04/02/2024 Refill [facility] WALK-IN CENTER [address] [place] [address] Anthony Ruiz ANP Essential hypertension; Chronic SI joint pain; Chronic bilateral low back pain, unspecified whether sciatica present 04/01/2024 Refill [facility] MEDICINE [address] [place] [address] Anthony Ruiz ANP Type 2 diabetes mellitus with hyperlipidemia (CMS/HCC) (CMS/HCC) (Primary Dx) 03/29/2024 Telephone [facility] MEDICINE [address] [place] [phone] Candy Bains RN ER Follow-up 03/29/2024 Orders Only [facility] MEDICINE [address] [place] [address] Anthony Ruiz ANP 03/28/2024 Refill [facility] CH[facility] MED & PEDS [address] [place] [address] Anthony Ruiz ANP Cervicalgia 03/20/2024 Orders Only GENERIC EXTERNAL DATA DEPARTMENT Provider, Generic External Data 03/18/2024 Orders Only [facility] MEDICINE [address] [place] [address] Waldo Rojas MD Essential hypertension (Primary Dx) 03/17/2024 1:30 PM EST Office Visit [facility] MEDICINE [address] [place] [address] Anthony Ruiz ANP Type 2 diabetes mellitus with hyperlipidemia (CMS/HCC) (Primary Dx); Abscess 03/17/2024 Telephone [facility] MEDICINE [address] [place] [address] Anthony Ruiz ANP 03/17/2024 Travel 03/15/2024 Telephone [facility] MEDICINE [address] [place] [address] Candy Bains, RN Paperwork/Forms 03/13/2024 Refill [facility] WALK-IN CENTER [address] [place] [address] Anthony Ruiz ANP Severe persistent asthma without complication 03/12/2024 Telephone [facility] MEDICINE [address] [place] [address] Anthony Ruiz ANP status check abscess 03/09/2024 Refill [facility] CHC MED & PEDS [address] [place] [address] Anthony Ruiz ANP Neck pain 03/03/2024 3:30 PM EST Office Visit [address] [address] Anthony Ruiz ANP Panniculitis affecting sacrum (Primary Dx); Abscess; Spondylosis of lumbar region without myelopathy or radiculopathy 03/03/2024 Travel 03/03/2024 Refill [facility] MEDICINE [address] [place] [address] Anthony Ruiz ANP 03/02/[address] [address] Day Pool [place] chart prep 03/01/[address] [address] Anthony Ruiz ANP Durable Medical Equipment 03/01/2024 Refill [facility] CH[facility] MED & PEDS [address] [place] [address] Anthony Ruiz ANP Cervicalgia 02/23/2024 2:00 PM EST Office Visit [facility] WALK-IN CENTER [address] [place] [address] Marianna Manzo MD Panniculitis affecting sacrum (Primary Dx) 02/23/[address] [address] Anthony Ruiz ANP Nurse Triage 02/20/2024 Refill [facility] MEDICINE [address] [place] [address] Anthony Ruiz ANP Severe persistent asthma without complication 02/19/2024 Orders Only GENERIC EXTERNAL DATA DEPARTMENT Provider, Generic External Data 02/16/[address] [address] Batsheva Baker [place] March recall 02/16/2024 Telephone [facility] MEDICINE [address] [place] [address] Anthony Ruiz ANP Med Refill 02/15/2024 Refill [facility] MED & PEDS [address] [place] [address] Anthony Ruiz ANP Healthcare maintenance; Neck pain 02/13/2024 11:00 AM EST Office Visit [facility] WALK-IN CENTER [address] [place] [phone] Chava Presley MD Asthma-COPD overlap syndrome (CMS/HCC) (Primary Dx); COPD with asthma (CMS/HCC) 02/13/2024 Telephone [facility] MEDICINE [address] [place] [address] Anthony Ruiz ANP Med Refill 02/13/2024 Telephone [facility] WALK-IN CENTER [address] [place] [address] Vicenta Constantino RN VTC triage (Saw [facility] pulmonology 02/03/24:/Assessment:/ Asthma-COPD overlap syndrome/ chronic obstructive pulmonary disease / Plan: /Well controlled on current regimen of Xolair, Advair, Combivent, and albuterol MDI. 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 02/04/2024 Refill [facility] CH[facility] MED & PEDS [address] [place] [address] Anthony Ruiz ANP Cervicalgia 02/04/[address] [address] Anthony Ruiz ANP Med Refill 02/04/2024 Travel 02/02/[address] [address] Anthony Ruiz ANP Nurse Triage 01/31/2024 Refill [facility] MEDICINE [address] [place] [address] Anthony Ruiz ANP Chronic bilateral low back [...] 11:30 AM EDT Medication Management [facility] MEDICINE [address] [place] [phone] Yuri Pierre, PharmD [address] [place] [address] 07/02/2024 11:00 AM EDT Clinical Support [address] [address] Azeb Hall, MARTIN [address] [place] [address] 07/15/2024 1:00 PM EDT Office Visit [facility] MEDICINE [address] [place] [address] Anthony Ruiz ANP [address] [place] [address] 08/04/2024 1:00 PM EDT Office Visit [facility] ADULT DENTAL [address] [place] [phone] Nuvia Duarte [address] [place] [address] Health Maintenance Due Date Last Done Comments [...] 08/12/2022 Depression Monitoring (PHQ-9) 04/02/2024 10/01/2023, 10/01/2023 Dental Prophylaxis 04/08/2024 10/06/2023, 0 09/18/2022, 01/18/2022 SDOH Screening 06/22/2024 06/23/2023 Diabetes: Hemoglobin A1C 07/01/2024 024, 12/30/2023, 04/30/2023, Additional history exists Dental X-Ray: Bitewings 09/12/2024 09/12/2023, 08/12 Depression Screening 09/30/2024 10/01/2023, 10/01/19 Diabetes: Urine Protein Screening 01/01/2025 01/02/2024, 01/22/2022, 02/12/2021, Additional history exists Lipid Panel 01/01/2025 01/02/2024, 08/18, 07/24/2021, Additional history exists Mammogram 04/12/2025 04/12/2024, [...] 6.6( 8:44 AM EST) No Aida Ragland [employer] Procedures Procedure Name Priority Date/Time Associated Diagnosis Comments POCT FRANKLIN-14 URINE DRUG SCREEN Routine 04/23/2024 10:56 AM EST Long-term current use of opiate analgesic D DIMER HIGH SENSITIVITY Routine 04/20/2024 1:21 PM EST XR CHEST 2 VIEWS Routine 04/20/2024 1:05 PM EST Posterior chest pain POCT INFLUENZA B (ID NOW RAPID MOLECULAR) [...] DRUG SCREEN Routine 02/04/2024 9:31 AM EST MCC (current) use of opiate analgesic ALBUMIN, RANDOM [...] Recently Relevant to Health Maintenance Results * POCT FRANKLIN-14 Urine Drug Screen (04/23/2024 10:56 AM EST) Only the most recent of2 resultswithin the time period is included. Urine Urine specimen obtained by clean catch procedure / Unknown 04/23/2024 10:56 AM EST Narrative Azeb Hall RN - 04/23/2024 10:56 AM EST .UTOX cup Lot#[id number] Exp. 10/06/25 Internal Pass Control negative AMP, BAR, BUP, BZO, RENETTA, FTY, MDMA, MET, MOP, MTD, OXY, PCP, TCA, THC. Anthony PAGE POINT OF CARE TEST ENTER/EDIT OR DERABLES Edited Result - Final * D Dimer High Sensitivity (04/20/2024 1:21 PM EST) D Dimer High Sensitivity 218 NG/ML LABS Comment:D-DIMER HS REFERENCE RANGENote: Our assay [...] MD LAB BLOOD ORDERABLES Final Resul t LABS [address] [place] [phone] * XR Chest 2 Views (04/20/2024 1:05 PM EST) Anatomical Region Laterality Modality Chest Radiographic Griselda ging 04/20/2024 1:05 PM EST Narrative 04/21/2024 9:57 AM EST ? [facility] ?[address] ?[place] [address] ?XRay Report ? Signed ? Patient: Nuvia Fay ?MR ?? #: [id number] ? : 1960 ?Acct:[id number] ? Age/Sex: 63 / F ?ADM Date: 04/20/24 ? Loc: HO.XRAY ? Attending Dr: Chava Presley MD ? Ordering Physician: CHAVA PRESLEY MD ?? Date of Service: 04/20/24 ?? Procedure(s): XR chest 2V ?? Accession Number(s): [id number] ? cc: CHAVA PRESLEY MD; ANTHONY RUIZ NP ? EXAMINATION: ?? XR CHEST ? CLINICAL INFORMATION: ?? cough, right posterior chest pain ? COMPARISON: ?? None available. ? TECHNIQUE: ?? 2 views of the chest were obtained. ? FINDINGS: ?? The lungs are well-expanded and clear acute process. The heart size and ?? pulmonary vascularity is normal. No gross bony abnormality seen ? XR/XR chest 2V ?? IMPRESSION: ?? Unremarkable chest examination. ? Electronically signed by: ??Saad Howell MD ??04/21/2024 09:54 AM EST RP ? Dictated By: ?Saad Howell MD ? Signed By: ?<Electronically signed by Saad Howell MD in OV> ?04/21/24 0954 ? DD/ 1305 ? TD/TT: 04/20/24 1310 ? Lasting 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 Bed: MSM ? Procedure Note Otoniel, Image - 04/21/[address] [address] XRay Report Signed Patient: Nuvia Fay EMR #: [id number] : 1Acct:[id number] Age/Sex: 63 / FADM Date: 04/20/24 Loc: [facility] Attending Dr: Chava Presley MD Ordering Physician: CHAVA PRESLEY MD Date of Service: 04/20/24 Procedure(s): XR chest 2V Accession Number(s): [id number] cc: CHAVA PRESLEY MD; ANTHONY RUIZ NP EXAMINATION: XR CHEST CLINICAL INFORMATION: cough, right posterior chest pain COMPARISON: None available. TECHNIQUE: 2 views of the chest were obtained. FINDINGS: The lungs are well-expanded and clear acute process. The heart size and pulmonary vascularity is normal. No gross bony abnormality seen XR/XR chest 2V IMPRESSION: Unremarkable chest examination. Electronically signed by: Saad Howell MD 04/21/2024 09:54 AM EST RP Dictated By: Saad Howell MD Signed By: <Electronically signed by Saad Howell MD in OV> 04/21/24 0954 DD/ 1305 TD/TT: 04/20/24 1310 Lasting 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 Bed: [facility] Chava Presley MD IMG XR PROCEDURES Edited Result - Final * POCT Rapid Influenza B BAILEY ID NOW (04/15/2024 2:02 PM EST) [facility] Influenza B Negative Negative, Indeterminate LABS QC Media Lot # [id number] LABS Lot# Expiration Date LABS Swab 04/15/2024 2:02 PM EST us Anthony PAGE POINT OF CARE TEST ENTER/EDIT OR DERABLES Final Result LABS [address] [place] [phone] * POCT Rapid Covid-19 BinaxNOW (04/15/2024 2:01 PM EST) [facility] Rapid COVID Ag Negative QC Media Lot # [id number] Lot# Expiration Date Swab 04/15/2024 2:01 PM EST us Anthony Ruiz ANP POINT OF CARE TEST ENTER/EDIT OR DERABLES Final Result * POCT Rapid Influenza A BAILEY ID NOW (04/15/2024 1:59 PM EST) Influenza A Negative Negative, Indeterminate LABS QC Media Lot # [id number] LABS Lot# Expiration Date [id number] LABS Swab 04/15/2024 1:59 PM EST us Anthony Ruiz ANP POINT OF CARE TEST ENTER/EDIT OR DERABLES Edited Result - Final LABS [address] [place] [address] [phone] * BI Mammogram Screening Tomosynthesis Bilateral (04/12/2024 1:48 PM EST) Anatomical Region Laterality Modality Breast Bilateral Mammography 04/12/2024 1:48 PM EST Narrative 04/17/2024 12:38 PM EST ? [facility] ? [address] ?[place] [address] ? Mammography Report ? Signed ? Patient: Nuvia Fay ?MR ?? #: [id number] ? : 1960 ?Acct:[id number] ? Age/Sex: 63 / F ?ADM Date: /24/25 ? Loc: HO.MAMMO ? Attending Dr: Monica Lozano CNM ? Ordering Physician: Monica Lozano CNM ?Results: 2Beni ?? gn Findings ? Date of Service: 04/12/24 ?Follow Up: 1 Year From Orig ?? inal Mammogram ? Procedure(s): MM tomosynthesis screening BI ?? Accession Number(s): [id number] ? cc: Monica Lozano CNM; ANTHONY RUIZ [...] ??Cherrie Roberts DO ??04/17/2024 12:35 PM EST ?? RP ? Dictated By: ?Cherrie Roberts DO ? Signed By: ?<Electronically signed by Cherrie Roberts, DO in OV> ? 04/17/24 1235 ? DD/ 1348 ? TD/TT: 04/12/24 1405 ? Lasting 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 Bed: ? Procedure Note Otoniel, Image - 04/17/2024 [facility] [address] [place] [address] Mammography Report Signed Patient: Nuvia Fay EMR #: [id number] : 1960cct:[id number] Age/Sex: 63 / FADM Date: 04/12/24 Loc: HO.MAMMO Attending Dr: Monica Lozano CNM Ordering Physician: Monica LozanoMResults: 2Beni gn Findings Date of Service: 04/12/24Follow Up: 1 Year From Orig inal Mammogram Procedure(s): MM tomosynthesis screening BI Accession Number(s): [id number] cc: Monica Lozano CNM; ANTHONY RUIZ NP [...] Cherrie Roberts DO 04/17/2024 12:35 PM EST Dictated By: Cherrie Roberts DO Signed By: <Electronically signed by Cherrie Roberts DO in OV> 04/17/24 1235 DD/ 1348 TD/TT: 04/12/24 1405 Lasting 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 Bed: [facility] External Provider IMG BI PROCEDURES Edited Result - Final * CT Abdomen Pelvis w/ Contrast (03/20/2024 7:20 PM EST) Anatomical Region Laterality Modality Body, Pelvis, Abdomen Computed T omography 03/20/2024 7:20 PM EST Narrative 03/20/2024 7:23 PM EST ? [facility] ?[address] ?[place], [place] [address] ? CT Scan Report ? Signed ? Patient: Avinash Ho,Nuvia E ?MR ?? #: [id number] ? : 1960 ?Acct:[id number] ? Age/Sex: 63 / F ?ADM Date: 03/20/24 ? Loc: HO.ED ? Attending Dr: ? Ordering Physician: Maritza Mckeon ?? Date of Service: 03/20/24 ?? Procedure(s): CT abdomen pelvis w IV con ?? Accession Number(s): [id number] ? cc: Maritza Mckeon; ANTHONY RUIZ NP ? Report Number: ?? [id number]: Total DLP = ??844.00 mGy-cm ? CLINICAL HISTORY: abdominal wall cellulitis ?? abscess ? CT abdomen and pelvis with contrast ? Comparison: CT/TX/SR - CT ABDOMEN WO/W IV CON - [...] ? DD/ 19 ? TD/TT: 03/20/241919 ? Lasting 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 Bed: ? Procedure Note Donotmarshainterpreter, Image - 03/20/[address] [address] [address] Scan Report Signed Patient: Nuvia Fay EMR #: [id number] : 1Acct:[id number] Age/Sex: 63 / FADM Date: 03/20/24 Loc: HO.ED Attending Dr: Ordering Physician: Maritza Mckeon Date of Service: 03/20/24 Procedure(s): CT abdomen pelvis w IV con Accession Number(s): [id number] cc: Maritza Mckeon; ANTHONY RUIZ NP Report Number: [id number]: Total DLP = 844.00 mGy-cm CLINICAL HISTORY: abdominal wall cellulitis abscess CT abdomen and pelvis with contrast Comparison: CT/TX/SR - CT ABDOMEN WO/W IV CON - [...] in OV> 03/20/241921 DD/ 19 TD/TT: 03/20/241919 Lasting 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 Bed: [facility] External Provider IMG CT PROCEDURES Edited Result - Final * (ABNORMAL) Glucose, Whole Blood (03/20/2024 5:01 PM EST) Only the most recent of2 resultswithin the time period is included. Pathologist [facility] Glucose, Whole Blood 163(H) 60 - 115 mg/dL LABS Comment:METER #: [id number] 03/20/2024 5:01 PM EST 03/20/2024 5:05 PM EST Generic External Data Provider LAB BLOOD ORDERAB LES Final Result LABS [address] [place] [phone] * (ABNORMAL) CBC auto differential (03/20/2024 2:28 PM EST) Pathologist [facility] White Blood Count 6.8 4.8 - 10.8 X10*3/uL LABS Red Blood Count 4.08(L) 4.20 - 5.50 X10*6/uL LABS Hemoglobin 13.0 12.0 - 16.0 g/dl LABS Hematocrit 38.0 37.0 - 47.0 % LABS Mean Corpuscular Volume 93.1 80.0 - 98.0 fL LABS Mean Corpuscular Hemoglobin 31.9 27.0 - 33.0 pg LABS Mean Corpuscular HGB Conc 34.2 31.0 - 35.0 g/dl LABS Red Cell Distribution Width 14.1 11.0 - 16.0 % LABS Platelet Count 280 160 - 400 X10*3/uL LABS Mean Platelet Volume 9.2(L) 9.4 - 12.3 fL LABS Neutrophils Percent Auto 53.1 45 - 73 % LABS Imm Gran Pct Auto 0.1 0.0 - 0.4 % LABS Lymphocytes Percent Auto 36.2 20 - 40 % LABS Monocytes Percent Auto 7.9 2 - 11 % LABS Eosinophils Percent Auto 2.4 0 - 4 % LABS Basophils Percent Auto 0.3 0 - 2 % LABS NRBC Pct Auto 0.0 0.0 - 0.2 /100WBC LABS Neutrophils Absolute Auto 3.6 2.0 - 8.3 x10*3/uL LABS Imm Gran Abs Auto 0.01 0.00 - 0.03 X10*3/uL LABS Lymphocytes Absolute Auto 2.5 1.2 - 4.9 X10*3/uL LABS Monocytes Absolute Auto 0.5 0.1 - 1.2 X10*3/uL LABS Eosinophils Absolute Auto 0.2 0.0 - 0.4 X10*3/uL LABS Basophils Absolute Auto 0.0 0.0 - 0.2 X10*3/uL LABS NRBC Abs Auto 0.000 0.0 - 0.012 X10*3/uL LABS 03/20/2024 2:28 PM EST 03/20/2024 2:33 PM EST us Generic External Data Provider LAB BLOOD ORDERAB LES Final Result LABS [address] [place] [phone] * (ABNORMAL) Sed Rate by Modified [place] (03/20/2024 2:28 PM EST) Erythrocyte Sedimentation Rate 46(H) 0 - 20 MM/HR LABS Comment:Patients with polycy themia and many hemoglobin abnormalitiesmay have depressed sed rates whereas patients with anemiamay have elevated sed rates. 03/20/2024 2:28 PM EST 03/20/2024 2:58 PM EST us Generic External Data Provider LAB BLOOD ORDERAB LES Final Result Performing Organization Address [facility]/ZIP Co de Phone Number LABS [address] [place] [phone] * (ABNORMAL) C-reactive Protein (03/20/2024 2:28 PM EST) C Reactive Protein 3.90(H) < or = 0.50 mg/dL LABS 03/20/2024 2:28 PM EST 03/20/2024 2:33 PM EST us Generic External Data Provider LAB BLOOD ORDERAB LES Final Result Performing Organization Address City/[facility]/ZIP Co de Phone Number LABS [address] [place] [phone] * Magnesium (03/20/2024 2:28 PM EST) Magnesium 2.2 1.6 - 2.6 mg/dL LABS 03/20/2024 2:28 PM EST 03/20/2024 2:33 PM EST us Generic External Data Provider LAB BLOOD ORDERAB LES Final Result Performing Organization Address City/[facility]/ZIP Co de Phone Number LABS [address] [place] [address] [phone] * Lipase (03/20/2024 2:28 PM EST) Lipase 16 8 - 78 U/L [facility] 03/20/2024 2:28 PM EST 03/20/2024 2:33 PM EST Generic External Data Provider LAB BLOOD ORDERAB LES Final Result Performing Organization Address [facility] Co de Phone Number LABS [address] [place] [phone] * Lactic Acid (03/20/2024 2:28 PM EST) Lactic Acid 0.8 0.5 - 2.0 mmol/L LABS 03/20/2024 2:28 PM EST 03/20/2024 2:33 PM EST Generic External Data Provider LAB BLOOD ORDERAB LES Final Result Performing Organization Address [facility] de Phone Number LABS [address] [place] [phone] * (ABNORMAL) Hepatic Function Panel (03/20/2024 2:28 PM EST) Bilirubin, Total 0.4 0.0 - 1.0 mg/dL LABS Bilirubin, Direct 0.2 0.0 - 0.5 mg/dL LABS Aspartate Amino Transferase 173(H) 5 - 31 U/L LABS Alanine Aminotransferase 249(H) 0 - 31 U/L LABS Total Protein 7.8 6.5 - 8.0 g/dL LABS Albumin Level 3.8 3.5 - 5.0 g/dL LABS Alkaline Phosphatase 138(H) 39 - 117 U/L LABS 03/20/2024 2:28 PM EST 03/20/2024 2:33 PM EST us Generic External Data Provider LAB BLOOD ORDERAB LES Final Result Performing Organization Address City/[facility]/ZIP Co de Phone Number LABS [address] [place] [phone] * (ABNORMAL) Basic Metabolic Panel (03/20/2024 2:28 PM EST) Sodium 143 135 - 145 mmol/L LABS Potassium 3.7 3.3 - 5.1 mmol/L LABS Chloride 112(H) 96 - 108 mmol/L LABS Carbon Dioxide 23 22 - 29 mmol/L LABS Anion Gap 12 12 - 20 LABS Urea Nitrogen (BUN) 13 9 - 16 mg/dL LABS Creatinine, Serum 0.82 0.5 - 1.4 mg/dL LABS Creatinine Clr Calc Pharmacy 73.7 LABS Comment:Provided height and weight: 157.48 cm,91.172 kg.eGFR (calculated from the MDRD study equation) and eCrCl(calculated from the Cockcroft-Gault equation) are based ondifferent parameters and may not yield comparable results.If eCrCl result is absurd, please check patient'sheight/weight. Estimated Glomerular Filt Rate >60 LABS Comment:Chronic Kidney Disea se: Estimated GFR < 60 mL/min/1.49p0Nyasxf Kidney Disease: Estimated GFR < 15 mL/min/1.73m2 Glucose 112 60 - 115 mg/dL LABS Calcium 8.7 8.4 - 10.2 mg/dL LABS 03/20/2024 2:28 PM EST 03/20/2024 2:33 PM EST us Generic External Data Provider LAB BLOOD ORDERAB LES Final Result Performing Organization Address City/[facility]/ZIP Co de Phone Number LABS [address] [place] [phone] * XR Chest 1 View (02/29/2024 1:36 PM EST) Anatomical Region Laterality Modality Chest Radiographic Griselda ging 02/29/2024 1:36 PM EST Narrative 02/29/2024 1:38 PM EST ? [facility] ?[address] ?[place] [address] ?XRay Report ? Signed ? Patient: Nuvia Fay ?MR ?? #: [id number] ? : 1960 ?Acct:[id number] ? Age/Sex: 63 / F ?ADM Date: 02/29/24 ? Loc: HO.ED ? Attending Dr: ? Ordering Physician: Kourtney Jones MD ?? Date of Service: 02/29/24 ?? Procedure(s): XR chest 1V ?? Accession Number(s): [id number] ? cc: Kourtney Jones MD; ANTHONY RUIZ [...] ? 02/29/24 1337 ? DD/ ? TD/TT: 02/29/241335 ? Lasting 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 Bed: ? Procedure Note Otoniel, Vinicius - 02/29/[address] [address] XRay Report Signed Patient: Nuvia Fay EMR #: [id number] : 1960cct:[id number] Age/Sex: 63 / FADM Date: 02/29/24 Loc: HO.ED Attending Dr: Ordering Physician: Kourtney Jones MD Date of Service: 02/29/24 Procedure(s): XR chest 1V Accession Number(s): [id number] cc: Kourtney Jones MD; ANTHONY RUIZ NP [...] 02/29/24 1337 DD/ 1336 TD/TT: 02/29/24 1336 Lasting 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 Bed: [facility] External Provider IMG XR PROCEDURES Edited Result - Final * Bacterial Vaginosis (02/19/2024 1:18 PM EST) TRICHOMONAS VAGINALIS DETECTION BY PCR NOT DETECTED Not Detect LABS BACTERIAL VAGINOSIS DETECTION BY PCR NEGATIVE Negative LABS Comment:The BV organism targ ets of [...] DETECTION BY PCR NOT DETECTED Not Detect LABS Eufemia glab krusei PCR NOT DETECTED Not Detect LABS 02/19/2024 1:18 PM EST 02/19/2024 3:45 PM EST Generic External Data Provider LAB MICROBIOLOGY - GENERAL ORDERABLES Final Result LABS [address] [place] [phone] * Albumin, Random Urine W/Creatinine (01/02/2024 8:44 AM EST) Creatinine, Urine 47.20 mg/dL [facility] Microalbumin Urine 7.0 mg/L [facility] LABS Microalbum Creatinine Ratio Ur 14.8 <30 ug/mg cr LABS Comment:Albumin/Creatinine R atio Reference Ranges: Normal: < 30 ug/mg creatinine Microalbuminuria: 30 - 300 ug/mg creatinineClinical Albuminuria: > 300 ug/mg creatinine Urine (Urine, Random) 01/02/2024 8:44 AM EST 01/02/2024 11:09 AM EST [facility] LAB URINE ORDERABLES Final Resul t Performing Organization Address [facility] Co de Phone Number LABS [address] [place] [phone] * (ABNORMAL) Hemoglobin A1c (01/02/2024 8:44 AM EST) Hemoglobin A1c 6.6(H) <6.0 % [facility] Comment:Hemoglobin A1C Refer ence Range Adults: 4.8 - 6.0 % Non diabetic: < 6.0 % Goal: < 7.0 %Additional Action Suggested: > 8.0 %Note: Hemoglobin A1c results are invalid for patients with abnormal amounts of HbF. Blood transfusions may impact the HbA1c concentration in the patient sample. Estimated Average Glucose 143 mg/dL LABS Comment:eAG = Estimated ave rage glucose which is %A1C expressed asaverage glucose, using the formula of the G1Z-DlrqmctNlgkume Glucose study (ADAG), Diabetes Care, Vol.31,#8,2007 01/02/2024 8:44 AM EST 01/02/2024 11:03 AM EST [facility] External Data Provider LAB BLOOD ORDERAB LES Final Result Performing Organization Address [facility] Co de Phone Number LABS [address] [place] [phone] * Lipid Panel, Standard (01/02/2024 8:44 AM EST) Triglycerides 93 <150 mg/dL [facility] Comment:Desirable Triglyceri de: less than 150 mg/dLBorderline High Triglyceride 150-199 mg/dLHigh Triglyceride: 200-499 mg/dLVery High Triglyceride: greater than or equal to 5OO mg/dL Cholesterol 177 <200 mg/dL LABS Comment:Desirable Cholestero l: less than 200 mg/dLBorderline High Cholesterol: 200-239 mg/dLHigh Cholesterol: greater than 239 mg/dL LDL Cholesterol Calculated 90 <100 mg/dL LABS Comment:Desirable LDL: less than 100 mg/dLNear Optimal/Above Optimal LDL: 110- 129 mg/dLBorderline High LDL: 130-159 mg/dLHigh LDL: 160-189 mg/dLVery High LDL: greater than or equal to 190 mg/dL HDL Cholesterol 69 >40 mg/dL [facility] LAB[facility] Comment:Desirable HDL: great er than 40 mg/dL Note: This HDL assay may give artificially low results in patients with liver disease. 01/02/2024 8:44 AM EST 01/02/2024 11:03 AM EST us Generic External Data Provider LAB BLOOD ORDERAB LES Final Result Performing Organization Address City/State/[facility] Co de Phone Number LABS [address] [place] [phone] * (ABNORMAL) Hm Colonoscopy (12/27/2021) Colonoscopy Abnormal(A ) Normal us Historical Provider HEALTH MAINTENANCE Final Result * HPV E6/E7 RFLX ALFRED 16 18/45 (05/09/2020 11:19 AM EDT) HPV mRNA E6/E7 rflx Not Detected Not Detected [facility] Comment: Methodology: Planner Intern-Mediated Amplification This assay detects E6/E7 viral messenger RNA (mRNA) from 14 high-risk HPV types (16,18,31,33,35,39,45,51,52,56,58,59,66,68). The analytical performance characteristics of this assay have been determined by [employer]. The modifications have not been cleared or approved by the FDA. This assay has been validated pursuant to the CLIA regulations and is used for clinical purposes. For additional information, please refer to http://education.[employer]/faq/HBD223x7 (This link if provided for information/ educational purposes only.) THIS TEST WAS PERFORMED AT: [employer] [address] [place] [address] [address] [place], [place] ??[phone] HERNAN WARREN MD 05/09/2020 11:1 9 AM EDT Yohana Lu HISTORICAL/NON ORDERABLE LABS Fi nal Result [facility] [address] from Last 3 Months or Most Recently Relevant to Health Maintenance Insurance - [facility] - [facility] Care Teams Assistant Scientist Relationship Specialty Start Date End Date Anthony Ruiz ANP [address] [place] [phone] PCP - General Family Medicine 09/23/19
--- OUTSIDE RECORDS SUMMARY | 2024-04-28 14:47 | XMS_ITS | Encounter Summary ---
Author Organization [employer] Address [address] 7t [place] [address] Care Team Providers Care Business Information Analyst Name Role Phone Sariah Vickers Primary Care Provider [phone] Reason for Visit * Reason Comments Med Refill Encounter Details Date Type Department Care Team ([facility] st Contact Info) Description 11/14/2023 Refill [facility] [address] [place] [address] Sariah Vickers ANP [address] [place] [address] Neck pain Social History Tobacco Use Types [...] Description 04/29/2024 11:30 AM EDT Medication Management [address] [address] Yuri Pierre, MikeD [address] [place] [address] 07/02/2024 11:00 AM EDT Clinical Support [address] [address] Azeb Hall, RN [address] [place] [address] 07/15/2024 1:00 PM EDT Office Visit [address] [address] Sariah Vickers ANP [address] [place] [address] 08/04/2024 1:00 PM EDT Office Visit [facility] [address] [place] [address] Nuvia Duarte [address] [place] [address] documented as of this encounter Goals Goal [...] documented as of this encounter Care Teams Business Information Analyst Relationship Specialty Start Date End Date Sariah Vickers ANP [address] [place] [address] PCP - General Family Medicine 09/23/19 documented as of this encounter
--- OUTSIDE RECORDS SUMMARY | 2024-04-28 14:47 | XMS_ITS | Encounter Summary ---
Author Organization [employer] Address [address] [facility] 7t [place] [address] Care Team Providers Care Mica Washer Gluer Name Role Phone Sariah Vickers Primary Care Provider [phone] Encounter Details Date Type Department Care Team (Late st Contact Info) Description 04/01/2024 Refill [facility] [address] [place] [address] Sariah Vickers ANP [address] [place] [address] Type 2 diabetes mellitus with hyperlipidemia (CMS/HCC) [...] Pierre PharmD - 04/01/2024 12:57 PM EST [facility] Pharmacy requested prescription for Freestyle jalil 2 reader to replace lost reader for patient. PCP agreeable to provide replacement ahead of visit 04/15/2024. Pharmacist sent prescription for Freestyle Jalil 2 reader, use to scan sensor every 8 hours to [facility] pharmacy. documented in this encounter Plan of Treatment Upcoming Encounters Date Type Department Care Team (Late st Contact Info) Description 04/29/2024 11:30 AM EDT Medication Management [facility] [address] [place] [address] Yuri Pierre, Dileep [address] [place] [address] 07/02/2024 11:00 AM EDT Clinical Support [facility] [address] [place] [address] Azeb Hall, MARTIN [address] [place] [address] 07/15/2024 1:00 PM EDT Office Visit [facility] [address] [place] [address] Sariah Vickers, ANP [address] [place] [phone] 08/04/2024 1:00 PM EDT Office Visit [facility] [address] [place] [address] Nuvia Duarte [address] [place] [address] documented as of this encounter Goals Goal Patient Goal Type Associated Problems Recent Progress Patient-Stated? Author Blood Pressure < 140/90 Blood Pressure 124/93(2024 11:36 AM EST) No Phanis-Gambl ciara, Aida, PharmD Record Your Blood Sugar As Directed General No Phanis-Gambl Veronica urbinasa, PharmD Hemoglobin A1c < 7 Result Component 6.6( 8:44 AM EST) No Phanis-GambAida bukc, PharmD documented as of this encounter Visit Diagnoses Diagnosis Type 2 diabetes mellitus with hyperlipidemia (CMS/HCC) (CMS/HCC)- Primary documented in this encounter Additional Health Concerns Assessment Noted Time PHQ-9 Depression Total Score: 12 024 2:58 PM EDT documented as of this encounter Care Teams Mica Washer Gluer Relationship Specialty Start Date End Date Sariah Vickers ANP [address] [place] [address] PCP - General Family Medicine 09/23/19 documented as of this encounter
--- OUTSIDE RECORDS SUMMARY | 2024-04-28 14:47 | XMS_ITS | Encounter Summary ---
Author Organization [employer] Address [address] [facility] 7t [place] [address] Care Team Providers Care Natural Gas Inspector Name Role Phone Sariah Vickers Primary Care Provider [phone] Reason for Visit * Reason Comments Med Refill Encounter Details Date Type Department Care Team ([facility] st Contact Info) Description 11/26/2023 Refill [facility] [address] [place] [address] Sariah Vickers ANP 230 [place] [address] Vertigo Social History Tobacco Use Types Packs/Day [...] Description 04/29/2024 11:30 AM EDT Medication Management [address] [address] Yuri Pierre, MikeD [address] [place] [address] 07/02/2024 11:00 AM EDT Clinical Support [address] [address] Azeb Hall, RN [address] [place] [address] 07/15/2024 1:00 PM EDT Office Visit [address] [address] Sariah Vickers ANP [address] [place] [address] 08/04/2024 1:00 PM EDT Office Visit [facility] [address] [place] [address] Nuvia Duarte [address] [place] [address] documented as of this encounter Goals Goal [...] documented as of this encounter Care Teams Natural Gas Inspector Relationship Specialty Start Date End Date Sariah Vickers ANP [address] [place] [phone] PCP - General Family Medicine 09/23/19 documented as of this encounter
--- OUTSIDE RECORDS SUMMARY | 2024-04-28 14:47 | XMS_ITS | Encounter Summary ---
Author Organization [employer] Address [address] [facility] [address] 7t [place] [address] Care Team Providers Care Reverberatory Furnace Operator Name Role Phone Sariah Vickers Primary Care Provider [phone] Reason for Visit * Reason Comments Med Refill Patient walked in [facility] pharmacy hasn't finished her Medbox due to missing refill for medication Gabapetin . Encounter Details Date Type Department Care Team ([facility] st Contact Info) Description 10/03/2023 Refill [facility] [address] [place], [place] [phone] Sariah Vickers ANP [address] [place] [address] Chronic SI joint pain Social History Tobacco [...] Description 04/29/2024 11:30 AM EDT Medication Management [address] [address] Yuri Pierre, PharmD [address] [place] [address] 07/02/2024 11:00 AM EDT Clinical Support [facility] [address] [place] [address] Azeb Hall RN 505 [place] [address] 07/15/2024 1:00 PM EDT Office Visit [address] [address] Sariah Vickers ANP [address] [place] [address] 08/04/2024 1:00 PM EDT Office Visit [facility] [address] [place] [address] Nuvia Duarte [address] [place] [address] documented as of this encounter Goals Goal Patient Goal Type Associated Problems Recent Progress Patient-Stated? Author Blood Pressure < 140/90 Blood Pressure 124/93(2024 11:36 AM EST) No Piers-Gambl e, Aida, PharmD Record Your Blood Sugar As Directed General No Piers-Gambl e, Aida, PharmD Hemoglobin A1c < 7 Result Component 6.6( 8:44 AM EST) No Piers-Gambl eVeronicasa, PharmD documented as of this encounter Visit Diagnoses Diagnosis Chronic SI joint pain Disorders of sacrum documented in this encounter Additional Health Concerns Assessment Noted Time PHQ-9 Depression Total Score: 12 08/ 024 2:58 PM EDT documented as of this encounter Care Teams Reverberatory Furnace Operator Relationship Specialty Start Date End Date Sariah Vickers ANP [address] [place] [address] PCP - General Family Medicine 09/23/19 documented as of this encounter
--- OUTSIDE RECORDS SUMMARY | 2024-04-28 14:47 | XMS_ITS | Encounter Summary ---
Author Organization [employer] Address [address] [facility] 7t [place] [address] Care Team Providers Care Housekeeping/Laundry Name Role Phone Sariah Vickers Primary Care Provider [phone] Reason for Visit * Reason Comments Med Refill Encounter Details Date Type Department Care Team ([facility] st Contact Info) Description 04/26/2024 Refill [facility] [address] [place] [address] Sariah Vickers ANP [address] [place] [address] Cervicalgia Social History Tobacco Use Types Packs/Day [...] Description 04/29/2024 11:30 AM EDT Medication Management [address] [address] Yuri Peirre, Dileep [address] [place] [address] 07/02/2024 11:00 AM EDT Clinical Support [address] [address] Azeb Hall, RN 505 [place] [address] 07/15/2024 1:00 PM EDT Office Visit [address] [address] Sariah Vickers ANP [address] [place] [address] 08/04/2024 1:00 PM EDT Office Visit [facility] [address] [place] [address] Nuvia Duarte [address] [place] [address] documented as of this encounter Goals Goal [...] documented as of this encounter Care Teams Housekeeping/Laundry Relationship Specialty Start Date End Date Sariah Vickers ANP [address] [place] [address] PCP - General Family Medicine 09/23/19 documented as of this encounter
--- OUTSIDE RECORDS SUMMARY | 2024-04-28 14:47 | XMS_ITS | Encounter Summary ---
Author Organization [employer] Address [address] [facility] [address] 7t [place] [address] Care Team Providers Care Manufacturing Industrial Engineer Name Role Phone Sariah Vickers Primary Care Provider Reason for Visit * Reason Comments Med Refill Encounter Details Date Type Department Care Team ([facility] st Contact Info) Description 10/03/2023 Refill [facility] [address] [place] [address] Sariah Vickers ANP [address] [place] [address] Chronic SI joint pain Social History Tobacco [...] Description 04/29/2024 11:30 AM EDT Medication Management [facility] [address] [place] [address] Yuri Pierre, MikeD [address] [place] [address] 07/02/2024 11:00 AM EDT Clinical Support [address] [address] Azeb Hall, RN [address] [place] [address] 07/15/2024 1:00 PM EDT Office Visit [address] [address] Sariah Vickers ANP [address] [place] [address] 08/04/2024 1:00 PM EDT Office Visit [facility] [address] [place] [address] Nuvia Duarte [address] [place] [address] documented as of this encounter Goals Goal [...] documented as of this encounter Care Teams Manufacturing Industrial Engineer Relationship Specialty Start Date End Date Sariah Vickers ANP [address] [place] [address] PCP - General Family Medicine 09/23/19 documented as of this encounter
--- OUTSIDE RECORDS SUMMARY | 2024-04-28 14:47 | XMS_ITS | Encounter Summary ---
Author Organization [employer] Address [address] [facility] 7t [place] [address] Care Team Providers Care Supervisor Special Effects Name Role Phone Sariah Vickers Primary Care Provider [phone] Reason for Visit * Reason Comments Med Refill Encounter Details Date Type Department Care Team ([facility] st Contact Info) Description 10/17/2023 Refill [facility] [address] [place] [address] Sariah Vickers ANP 230 [place] [address] Neck pain Social History Tobacco Use Types [...] Description 04/29/2024 11:30 AM EDT Medication Management [address] [address] Yuri Pierre, MikeD [address] [place] [address] 07/02/2024 11:00 AM EDT Clinical Support [address] [address] Azeb Hall, RN [address] [place] [address] 07/15/2024 1:00 PM EDT Office Visit [address] [address] Sariah Vickers ANP [address] [place] [address] 08/04/2024 1:00 PM EDT Office Visit [facility] [address] [place] [address] Nuvia Duarte [address] [place] [address] documented as of this encounter Goals Goal [...] as of this encounter Care Teams Supervisor Special Effects Relationship Specialty Start Date End Date Sariah Vickers ANP [address] [place] [phone] PCP - General Family Medicine 09/23/19 documented as of this encounter
--- OUTSIDE RECORDS SUMMARY | 2024-04-28 14:47 | XMS_ITS | Encounter Summary ---
Author Organization [employer] Address [address] [facility] 7t [place] [address] Care Team Providers Care Computer Programmer Chief Name Role Phone Sariah Vickers Primary Care Provider [phone] Reason for Visit * Reason Onset Date Comments Med Refill 02/04/2024 Encounter Details Date Type Department Care Team ([facility] st Contact Info) Description 02/04/2024 Telephone [facility] [address] [place] [address] Sariah Vickers ANP [address] [place] [address] Med Refill Social History Tobacco Use Types [...] 50 MG tablet To be sent to: [facility] - [place], [place] - [address] [place] [address] documented in this encounter Plan of Treatment Upcoming Encounters Date Type Department Care Team ([facility] st Contact Info) Description 04/29/2024 11:30 AM EDT Medication Management [address] [address] Yuri Pierre, PharmD [address] [place] [address] 07/02/2024 11:00 AM EDT Clinical Support [address] [address] Azeb Hall, MARTIN [address] [place] [address] 07/15/2024 1:00 PM EDT Office Visit [facility] [address] [place] [address] Sariah Vickers, KAYLEE [address] [place] [address] 08/04/2024 1:00 PM EDT Office Visit [facility] [address] [place] [address] Nuvia Duarte [address] [place] [address] documented as of this encounter Goals Goal Patient Goal Type Associated Problems Recent Progress Patient-Stated? Author Blood Pressure < 140/90 Blood Pressure 124/93(2024 11:36 AM EST) No Phanis-Gambl Veronica urbinasa, PharmD Record Your Blood Sugar As Directed General No Phanis-Gambl eVeronicasa, PharmD Hemoglobin A1c < 7 Result Component 6.6( 8:44 AM EST) No Phanis-Gambl Aida urbina PharmD documented as of this encounter Visit Diagnoses Not on filedocumented in this encounter Additional Health Concerns Assessment Noted Time PHQ-9 Depression Total Score: 12 09/30/ 024 2:58 PM EDT documented as of this encounter Care Teams Computer Programmer Chief Relationship Specialty Start Date End Date Sariah Vickers ANP [address] [place] [address] PCP - General Family Medicine 09/23/19 documented as of this encounter
--- OUTSIDE RECORDS SUMMARY | 2024-04-28 14:47 | XMS_ITS | Encounter Summary ---
Author Organization [employer] Address 75 [facility] 7t [place] [address] Care Team Providers Care Flex O Writer Operator Name Role Phone Sariah Vickers Primary Care Provider [phone] Reason for Visit * Reason Comments Med Refill Encounter Details Date Type Department Care Team ([facility] st Contact Info) Description 11/24/[address] [facility] MEDICINE 230 [place] [address] Sariah Vickers ANP 230 [place] [address] Vertigo Social History Tobacco Use Types Packs/Day [...] Description 04/29/2024 11:30 AM EDT Medication Management [address] [address] Yuri Pierre, MikeD [address] [place] [address] 07/02/2024 11:00 AM EDT Clinical Support [address] [address] Azeb Hall, RN 505 [place] [address] 07/15/2024 1:00 PM EDT Office Visit [address] [address] Sariah Vickers ANP [address] [place] [address] 08/04/2024 1:00 PM EDT Office Visit [facility] ADULT DENTAL [address] [place] [address] Nuvia Duarte [address] [place] [address] documented as of this encounter Goals Goal [...] documented as of this encounter Care Teams Flex O Writer Operator Relationship Specialty Start Date End Date Sariah Vickers ANP [address] [place] [address] PCP - General Family Medicine 09/23/19 documented as of this encounter
--- OUTSIDE RECORDS SUMMARY | 2024-04-28 14:47 | XMS_ITS | Encounter Summary ---
Author Organization [employer] Address 75 [facility] 7t [place] [address] Care Team Providers Care Lining Machine Tender Name Role Phone Sariah Vickers Primary Care Provider [phone] Reason for Visit * Reason Onset Date Comments Med Refill 09/18/2023 Encounter Details Date Type Department Care Team (Late st Contact Info) Description 09/18/2023 Telephone [facility] MEDICINE 230 [place] [address] Sariah Vickers ANP 230 [place] [address] Med Refill Social History Tobacco Use Types [...] refill : Tramadol To be sent to: [facility] - [place], [place] - [address] [place] [address] documented in this encounter Plan of Treatment Upcoming Encounters Date Type Department Care Team ([facility] st Contact Info) Description 04/29/2024 11:30 AM EDT Medication Management [address] [address] Yuri Pierre, PharmD [address] [place] [address] 07/02/2024 11:00 AM EDT Clinical Support [address] [address] Azeb Hall RN 505 [place] [address] 07/15/2024 1:00 PM EDT Office Visit [address] [address] Sariah Vickers, ANP [address] [place] [address] 08/04/2024 1:00 PM EDT Office Visit [facility] ADULT DENTAL 230 [place] [address] Nuvia Duarte 230 [place] [address] documented as of this encounter Goals Goal [...] documented as of this encounter Care Teams Lining Machine Tender Relationship Specialty Start Date End Date Sariah Vickers ANP 230 [place] [address] PCP - General Family Medicine 09/23/19 documented as of this encounter
--- OUTSIDE RECORDS SUMMARY | 2024-04-28 14:47 | XMS_ITS | Encounter Summary ---
Author Organization [employer] Address 75 [facility] 7t [place] [address] Care Team Providers Care Pulpwood Cutter Name Role Phone Sariha Vickers Primary Care Provider [phone] Encounter Details Date Type Department Care Team ([facility] Contact Info) Description 04/23/2024 Telephone [facility] CH[facility] MED & PEDS 505 [place], [place] [phone] Azeb Hall RN 505 [place], [place] Social History Tobacco Use Types Packs/Day Years [...] encounter Miscellaneous Notes * Telephone Encounter - Azeb Hall RN - 04/23/2024 10:54 AM EST Fyi. Pt 2 pills short at todays CLASS 1 OWNER OPERATOR appt. States has been in a lot of pain this month. Reminded pt of the CLASS 1 OWNER OPERATOR Agreement rules and to take med only as prescribed, pt verbalized understanding. F/u withyou 07/15/24. What CLASS 1 OWNER OPERATOR Tier would you like this patient to be? Tier 1 = HIGH RISK, Monthly CLASS 1 OWNER OPERATOR visits Tier 2 = MODerate RISK, Q3 Month visits Tier 3 = LOW RISK = Q4-6 month visits documented in this encounter Plan of Treatment Upcoming Encounters Date Type Department Care Team (Late st Contact Info) Description 04/29/2024 11:30 AM EDT Medication Management [facility] MEDICINE [address] [place] [address] Yuri Pierre, PharmD [address] [place] [address] 07/02/2024 11:00 AM EDT Clinical Support [facility] MED[facility]INE [address] [place] [address] Azeb Hall RN 505 [place] [address] 07/15/2024 1:00 PM EDT Office Visit [facility] MED[facility]INE [address] [place] [address] Sariah Vickers, ANP 230 [place] [address] 08/04/2024 1:00 PM EDT Office Visit [facility] ADULT DENTAL 230 [place], [place] [phone] Nuvia Duarte 230 [place] [address] documented as of this encounter Goals Goal [...] documented as of this encounter Care Teams Pulpwood Cutter Relationship Specialty Start Date End Date Sariah Vickers ANP 230 [place] [address] PCP - General Family Medicine 09/23/19 documented as of this encounter
--- OUTSIDE RECORDS SUMMARY | 2024-04-28 14:47 | XMS_ITS | Encounter Summary ---
Author Organization [employer] Address [address] [facility] [address] 7t [place] [address] Care Team Providers Care Sales And Service Officer Name Role Phone Sariah Vickers Primary Care Provider [phone] Encounter Details Date Type Department Care Team (Late st Contact Info) Description 04/21/2024 Telephone [facility] WALK[facility] 230 [place], [place] [phone] Chava Presley MD 230 [place] [address] Social History Tobacco Use Types Packs/Day Years [...] encounter Miscellaneous Notes * Telephone Encounter - Coleen Art RN - 04/21/2024 2:36 PM EST Incoming TC from pt. [facility] staff Jenna assisting with translation. Pt informed of message below per Dr. Presley. Pt inquiring on PT and reports she knows nothing about it. RN noted dx of neck pain in office visit today 04/22/23 and informed pt. Pt declines PT referral at this time and reports she has a lot going on, upcoming surgery but will let us know if she needs it. No further questions or concerns expressed at this time. Pt to F/U as needed. TC placed to pt regarding message below per Dr. Presley. No answer. Voice message left for pt to return call to [facility]. Pt to F/U as needed. [facility] staff Damaris assisting with translation. ----- Message from Chava Presley MD sent at 04/21/2024 1:29 PM EST ----- Please notify Nuvia that her blood test (d-dimer) and CXR were normal. I could refer her to PT if she would like. Thanks. Adalberto documented in this encounter Plan of Treatment Upcoming Encounters Date Type Department Care Team (Late st Contact Info) Description 04/29/2024 11:30 AM EDT Medication Management [address] [address] Yuri Pierre, Dileep [address] [place] [address] 07/02/2024 11:00 AM EDT Clinical Support [address] [address] Azeb Hall, RN 505 [place] [address] 07/15/2024 1:00 PM EDT Office Visit [address] [address] Sariah Vickers ANP [address] [place] [address] 08/04/2024 1:00 PM EDT Office Visit [facility] ADULT DENTAL [address] [place] [address] Nuvia Duarte [address] [place] [address] documented as of this encounter Goals Goal [...] as of this encounter Care Teams Sales And Service Officer Relationship Specialty Start Date End Date Sariah Vickers ANP [address] [place] [address] PCP - General Family Medicine 09/23/19 documented as of this encounter
--- OUTSIDE RECORDS SUMMARY | 2024-04-28 14:47 | XMS_ITS | Encounter Summary ---
Author Organization [employer] Address [address] [facility] [address] 7t [place] [address] Care Team Providers Care Manager Subway Name Role Phone Sariah Vickers Primary Care Provider [phone] Reason for Visit * Reason Comments controlled substance treatment Encounter Details Date Type Department Care Team (Latest Contact Info) Description 04/23/2024 11:30 AM EST Clinical Support [facility] MEDICINE 230 [place] [address] Azeb Hall RN 505 [place], [place] [phone] Long-term current use of opiate analgesic Social History Tobacco Use Types Packs/Day Years [...] as of this encounter Progress Notes * Azeb Hall RN - 04/23/2024 11:30 AM EST S: Pt here for FLOSSER RV. DAYA Hernandez interpreting. Prescribed Tramadol 50mg PO q12h PRN. Patient 2 pills short at todays visit. States has been in a lot of pain this month and took extra pills. Reminded ptof the FLOSSER Agreement rules and to take med only as prescribed, pt verbalized understanding. PCP notified. BZO from an outside provider. Pt denies nicotine/ETOH/street drug/marijuana. Currently rates pain a 8/10 and states medication is usually 100% effective at alleviating pain when taken. Chronic pain group pamphlet given, patient not interested at this time. No other questions/ concerns at thistime. O: WELL LOGGING CAPTAIN MUD ANALYSIS verified today. WELL LOGGING CAPTAIN MUD ANALYSIS checked 04/23/24. Pill count performed. Pt has 15 pills at this time, 17 expected. (See above). UTOX (-) all tested substances, as expected. A: FLOSSER Contract Revisit: Opioid dependence related to chronic pain. P: Patient to continue taking medication only as prescribed; Next FLOSSER RV appointment scheduled for 07/02/24 @ 11a @[facility]. F/u with PCP 07/15/24. F/U sooner PRN. Appointment reminder given. Patient verbalized understanding and agreed to plan. documented in this encounter Plan of Treatment Upcoming Encounters Date Type Department Care Team (Late st Contact Info) Description 04/29/2024 11:30 AM EDT Medication Management [address] [address] Yuri Pierre, PharmD [address] [place] [address] 07/02/2024 11:00 AM EDT Clinical Support [address] [address] Azeb Hall RN [address] [place] [address] 07/15/2024 1:00 PM EDT Office Visit [address] [address] Sariah Vickers ANP 230 [place] [address] 08/04/2024 1:00 PM EDT Office Visit [facility] ADULT DENTAL [address] [place] [address] Felicia, Nuvia 230 [place] [address] documented as of this encounter Goals Goal [...] EST Long-term current use of opiate analgesic documented in this encounter Results * POCT FRANKLIN-14 Urine Drug Screen (04/23/2024 10:56 AM EST) Urine Urine specimen obtained by clean catch procedure / Unknown 04/23/2024 10:56 AM EST Narrative Azeb Hall RN - 04/23/2024 10:56 AM EST .UTOX cup Lot#[id number] Exp. 10/06/25 Internal Pass Control negative AMP, BAR, BUP, BZO, RENETTA, FTY, MDMA, MET, MOP, MTD, OXY, PCP, TCA, THC. Sariah PAGE POINT OF CARE TEST ENTER/EDIT OR DERABLES Edited Result - Final documented in this encounter Visit Diagnoses Diagnosis Long-term current use of opiate analgesic Encounter for long-term (current) use of other medications documented in this encounter Additional Health Concerns Assessment Noted Time PHQ-9 Depression Total Score: 12 024 2:58 PM EDT documented as of this encounter Care Teams Manager Subway Relationship Specialty Start Date End Date Sariah Vickers ANP [address] [place] [address] PCP - General Family Medicine 09/23/19 documented as of this encounter
--- OUTSIDE RECORDS SUMMARY | 2024-04-28 14:47 | XMS_ITS | Encounter Summary ---
Author Organization [employer] Address 75 [facility] 7t [place] [address] Care Team Providers Care Field Interviewer Name Role Phone Sariah Vickers Primary Care Provider [phone] Reason for Visit * Reason Comments Med Refill Encounter Details Date Type Department Care Team ([facility] st Contact Info) Description 10/24/2023 Refill [facility] MEDICINE 230 [place] [address] Sariah Vickers ANP 230 [place] [address] Neck pain Social History Tobacco Use Types [...] Description 04/29/2024 11:30 AM EDT Medication Management [address] [address] Yuri Pierre, MikeD [address] [place] [address] 07/02/2024 11:00 AM EDT Clinical Support [address] [address] Azeb Hall, RN 505 [place] [address] 07/15/2024 1:00 PM EDT Office Visit [address] [address] Sariah Vickers ANP [address] [place] [address] 08/04/2024 1:00 PM EDT Office Visit [facility] ADULT DENTAL [address] [place] [address] Nuvia Duarte [address] [place] [address] documented as of this encounter Goals Goal [...] documented as of this encounter Care Teams Field Interviewer Relationship Specialty Start Date End Date Sariha Vickers ANP [address] [place] [address] PCP - General Family Medicine 09/23/19 documented as of this encounter
--- OUTSIDE RECORDS SUMMARY | 2024-04-28 14:47 | XMS_ITS | Encounter Summary ---
Author Organization [employer] Address [address] [facility] 7t [place] [address] Care Team Providers Care Rn Quality Name Role Phone Sariah Vickers Primary Care Provider [phone] Reason for Visit * Reason Comments Med Refill Encounter Details Date Type Department Care Team ([facility] st Contact Info) Description 04/02/[address] [facility] CH[facility] MED & PEDS [address] [place] [address] Sariah Vickers ANP 230 [place] [address] Neck pain Social History Tobacco Use Types [...] 04/29/2024 11:30 AM EDT Medication Management [address] [address] Yuri Pierre, Dileep [address] [place] [address] 07/02/2024 11:00 AM EDT Clinical Support [address] [address] Azeb Hall, RN 505 [place] [address] 07/15/2024 1:00 PM EDT Office Visit [address] [address] Sariah Vickers ANP [address] [place] [address] 08/04/2024 1:00 PM EDT Office Visit [facility] ADULT DENTAL [address] [place] [address] Nuvia Duarte [address] [place] [address] documented as of this encounter Goals Goal [...] as of this encounter Care Teams Rn Quality Relationship Specialty Start Date End Date Sariah Vickers ANP [address] [place] [address] PCP - General Family Medicine 09/23/19 documented as of this encounter
--- OUTSIDE RECORDS SUMMARY | 2024-04-28 14:47 | XMS_ITS | Encounter Summary ---
Author Organization [employer] [facility] Address 75 [facility] 7t [place] [address] Care Team Providers Care Claims Adjudicator Name Role Phone Sariah Vickers Primary Care Provider [phone] Reason for Referral * Medications - Closed Specialty Diagnoses / Procedures Referred By Queenie gomez Referred To Contact Diagnoses Chronic bilateral low back pain, unspecified whether sciatica present Sariah Vickers ANP 230 [place] [address] Phone: tel: fax: Referral ID Status Reason Start Date Expiration Date Visits Re quested Visits Authorized [id number] Closed 1 1 Reason for Visit * Reason Comments Med Refill Encounter Details Date Type Department Care Team (Late st Contact Info) Description 04/02/2024 Refill [facility] WALK[facility]IN CENTER [address] [place] [address] Sariah Vickers ANP 230 [place], [place] [phone] Essential hypertension; Chronic SI joint pain; Chronic [...] Description 04/29/2024 11:30 AM EDT Medication Management [address] [address] Yuri Pierre, PharmD [address] [place] [address] 07/02/2024 11:00 AM EDT Clinical Support [address] [address] Azeb Hall RN 505 [place] [address] 07/15/2024 1:00 PM EDT Office Visit [address] [address] Sariah Vickers, ANP [address] [place] [address] 08/04/2024 1:00 PM EDT Office Visit [facility] ADULT DENTAL 230 [place] [address] Nuvia Duarte 230 [place] [address] documented as of this encounter Goals Goal [...] documented as of this encounter Care Teams Claims Adjudicator Relationship Specialty Start Date End Date Sariah Vickers ANP 230 [place] [address] PCP - General Family Medicine 09/23/19 documented as of this encounter
--- OUTSIDE RECORDS SUMMARY | 2024-04-28 14:47 | XMS_ITS | Encounter Summary ---
Author Organization [employer] Address 75 [facility] 7t [place] [address] Care Team Providers Care Patient Financial Counselor Name Role Phone Sariah Vickers Primary Care Provider [phone] Reason for Visit * Reason Comments Med Refill Encounter Details Date Type Department Care Team ([facility] st Contact Info) Description 04/06/2024 Refill [facility] MEDICINE 230 [place] [address] Sariah Vickers ANP 230 [place] [address] Severe persistent asthma without complication Social History [...] Description 04/29/2024 11:30 AM EDT Medication Management [address] [address] Yuri Pierre, Dileep [address] [place] [address] 07/02/2024 11:00 AM EDT Clinical Support [address] [address] Azeb Hall, RN 505 [place] [address] 07/15/2024 1:00 PM EDT Office Visit [address] [address] Sariah Vickers ANP [address] [place] [address] 08/04/2024 1:00 PM EDT Office Visit [facility] ADULT DENTAL [address] [place] [address] Nuvia Duarte [address] [place] [address] documented as of this encounter Goals Goal [...] documented as of this encounter Care Teams Patient Financial Counselor Relationship Specialty Start Date End Date Sariah Vickers ANP [address] [place] [address] PCP - General Family Medicine 09/23/19 documented as of this encounter
--- OUTSIDE RECORDS SUMMARY | 2024-04-28 14:47 | XMS_ITS | Encounter Summary ---
Author Organization [employer] Address 75 [facility] 7t [place] [address] Care Team Providers Care Electricity Trader Name Role Phone Sariah Vickers Primary Care Provider [phone] Reason for Visit * Reason Comments Med Refill Encounter Details Date Type Department Care Team ([facility] st Contact Info) Description 01/04/2024 Refill [facility] CH[facility] MED & PEDS [address] [place] [address] Sariah Vickers ANP 230 [place] [address] Cervicalgia Social History Tobacco Use Types Packs/Day [...] 04/29/2024 11:30 AM EDT Medication Management [address] [address] Yuri Pierre, Dileep [address] [place] [address] 07/02/2024 11:00 AM EDT Clinical Support [address] [address] Azeb Hall, RN 505 [place] [address] 07/15/2024 1:00 PM EDT Office Visit [address] [address] Sariah Vickers ANP [address] [place] [address] 08/04/2024 1:00 PM EDT Office Visit [facility] ADULT DENTAL [address] [place] [address] Nuvia Duarte [address] [place] [address] documented as of this encounter Goals Goal [...] documented as of this encounter Care Teams Electricity Trader Relationship Specialty Start Date End Date Sariah Vickers ANP [address] [place] [address] PCP - General Family Medicine 09/23/19 documented as of this encounter
--- OUTSIDE RECORDS SUMMARY | 2024-04-28 14:47 | XMS_ITS | Encounter Summary ---
Author Organization [employer] Address 75 [facility] 7t [place] [address] Care Team Providers Care Allergist Name Role Phone Sariah Vickers Primary Care Provider [phone] Reason for Visit * Reason Comments Med Refill Encounter Details Date Type Department Care Team ([facility] st Contact Info) Description 01/06/2024 Refill [facility]EDS [address] [place] [address] Sariah Vickers ANP 230 [place] [address] Cervicalgia Social History Tobacco Use Types Packs/Day [...] Description 04/29/2024 11:30 AM EDT Medication Management [address] [address] Yuri Pierre, Dileep [address] [place] [address] 07/02/2024 11:00 AM EDT Clinical Support [address] [address] Azeb Hall, RN 505 [place] [address] 07/15/2024 1:00 PM EDT Office Visit [address] [address] Sariah Vickers ANP [address] [place] [address] 08/04/2024 1:00 PM EDT Office Visit [facility] [address] [place] [address] Nuvia Duarte [address] [place] [address] documented as of this encounter Goals Goal [...] documented as of this encounter Care Teams Allergist Relationship Specialty Start Date End Date Sariah Vickers ANP [address] [place] [address] PCP - General Family Medicine 09/23/19 documented as of this encounter
--- OUTSIDE RECORDS SUMMARY | 2024-04-28 14:48 | XMS_ITS | Encounter Summary ---
Author Organization [facility] Address 75 [facility] 7t [place] [address] Care Team Providers Care Program Clerk Name Role Phone Sariah Vickers Primary Care Provider [phone] Reason for Visit * Reason Comments Follow-up Encounter Details Date Type Department Care Team (Latest Contact Info) Description 04/15/2024 1:30 PM EST Office Visit [facility] MEDICINE 230 [place], [place] [phone] Sariah Vickers ANP 230 [place] [address] Umbilical hernia without obstruction and without gangrene [...] 11:30 AM EDT Medication Management [facility] MEDICINE [address] [place] [address] Yuri Pierre, PharmD 230 [place] [address] 07/02/2024 11:00 AM EDT Clinical Support [facility] MEDICINE [address] [place] [address] Azeb Hall RN 505 [place] [address] 07/15/2024 1:00 PM EDT Office Visit [facility] MEDICINE 230 [place] [address] Sariah Vickers ANP 230 [place] [address] 08/04/2024 1:00 PM EDT Office Visit [facility] ADULT DENTAL 230 [place], [place] [phone] Felicia Nuvia 230 [place] [address] documented as of this encounter Goals Goal [...] PM EST) Influenza B Negative Negative, Indeterminate [facility] QC Media Lot # [id number] [facility] Lot# Expiration Date , [facility] Swab 04/15/2024 2:02 PM EST us Sariah PAGE POINT OF CARE TEST ENTER/EDIT OR DERABLES Final Result [facility] [address] [place] [address] [phone] * POCT Rapid Covid-19 BinaxNOW (04/15/2024 2:01 PM EST) Rapid COVID Ag Negative QC Media Lot # [id number] Lot# Expiration Date ,026 Swab 04/15/2024 2:01 PM EST Sariah Vickers ANP POINT OF CARE TEST ENTER/EDIT OR DERABLES Final Result * POCT Rapid Influenza A BAILEY ID NOW (04/15/2024 1:59 PM EST) Influenza A Negative Negative, Indeterminate [facility] QC Media Lot # [id number] [facility] Lot# Expiration Date , [facility] Swab 04/15/2024 1:59 PM EST Sariah Vickers ANP POINT OF CARE TEST ENTER/EDIT OR DERABLES Edited Result - Final Performing Organization Address City/[facility]/ZIP Co de Phone Number [facility] [address] [place] [address] [phone] documented in this encounter Visit Diagnoses Diagnosis Umbilical hernia without obstruction and without gangrene- Primary Type 2 diabetes mellitus with hyperlipidemia (CMS/HCC) ([facility]/HCC) Acute cough documented in this encounter Additional Health Concerns Assessment Noted Time PHQ-9 Depression Total Score: 12 024 2:58 PM EDT documented as of this encounter Care Teams Program Clerk Relationship Specialty Start Date End Date Sariah Vickers ANP [address] [place] [address] PCP - General Family Medicine 09/23/19 documented as of this encounter
--- OUTSIDE RECORDS SUMMARY | 2024-04-28 14:48 | XMS_ITS | Encounter Summary ---
Author Organization [facility] Address [address] [facility] 7t [place] [address] Care Team Providers Care Cell Room Operator Name Role Phone Sariah Vickers Primary Care Provider [phone] Reason for Visit * Reason Comments Med Refill Encounter Details Date Type Department Care Team ([facility] st Contact Info) Description 05/21/2023 Refill [facility] 230 [place] [address] Sariah Vickers ANP 230 [place] [address] Neck pain Social History Tobacco Use Types [...] Description 04/29/2024 11:30 AM EDT Medication Management [facility] [address] [place] [address] Yuri Pierre, PharmD [address] [place] [address] 07/02/2024 11:00 AM EDT Clinical Support [address] [address] Azeb Hall, RN 505 [place] [address] 07/15/2024 1:00 PM EDT Office Visit [facility] [address] [place] [address] Sariah Vickers, ANP 230 [place] [address] 08/04/2024 1:00 PM EDT Office Visit [facility] ADULT DENTAL [address] [place] [address] Nuvia Duarte 230 [place] [address] documented as of this encounter Goals Goal [...] Cervicalgia documented in this encounter Care Teams Cell Room Operator Relationship Specialty Start Date End Date Sariah Vickers ANP [address] [place] [address] PCP - General Family Medicine 09/23/19 documented as of this encounter
--- OUTSIDE RECORDS SUMMARY | 2024-04-28 14:48 | XMS_ITS | Encounter Summary ---
Author Organization [employer] Address 75 [facility] 7t [place] [address] Care Team Providers Care Occupancy Specialist Name Role Phone Sariah Vickers Primary Care Provider [phone] Reason for Visit * Reason Comments Med Refill Encounter Details Date Type Department Care Team ([facility] st Contact Info) Description 02/28/2023 Refill [facility] MED[facility]INE 230 [place] [address] Sariah Vickers ANP 230 [place] [address] Cervicalgia Social History Tobacco Use Types Packs/Day [...] Description 04/29/2024 11:30 AM EDT Medication Management [address] [address] Yuri Pierre, Dileep [address] [place] [address] 07/02/2024 11:00 AM EDT Clinical Support [address] [address] Azeb Hall, RN 505 [place] [address] 07/15/2024 1:00 PM EDT Office Visit [facility] MEDICINE [address] [place] [address] Sariah Vickers ANP 230 [place] [address] 08/04/2024 1:00 PM EDT Office Visit [facility] ADULT DENTAL [address] [place] [address] Nuvia Duarte [address] [place] [address] documented as of this encounter Goals Goal Patient Goal Type Associated Problems Recent Progress Patient-Stated? Author Blood Pressure < 140/90 Blood Pressure 124/93(2024 11:36 AM EST) No Aida Ragland PharmBear Record Your Blood Sugar As Directed General No Aida Ragland PharmD Hemoglobin A1c < 7 Result Component 6.6(11/15/202 4 8:44 AM EST) Aida Ernst PharmD documented as of this encounter Visit Diagnoses Diagnosis Cervicalgia documented in this encounter Care Teams Occupancy Specialist Relationship Specialty Start Date End Date Sariah Vickers ANP [address] [place] [address] PCP - General Family Medicine 09/23/19 documented as of this encounter
--- OUTSIDE RECORDS SUMMARY | 2024-04-28 14:48 | XMS_ITS | Encounter Summary ---
Author Organization [employer] Address 75 [facility] 7t [place] [address] Care Team Providers Care Medicare Interviewer Name Role Phone Sariah Vickers Primary Care Provider [phone] Reason for Visit * Reason Comments Med Refill Encounter Details Date Type Department Care Team ([facility] st Contact Info) Description 06/30/2023 Refill [facility]INE 230 [place] [address] Sariah Vickers ANP 230 [place] [address] Neck pain Social History Tobacco Use Types [...] Description 04/29/2024 11:30 AM EDT Medication Management [address] [address] Yuri Pierre, MikeD [address] [place] [address] 07/02/2024 11:00 AM EDT Clinical Support [address] [address] Azeb Hall, RN 505 [place] [address] 07/15/2024 1:00 PM EDT Office Visit [address] [address] Sariah Vickers ANP [address] [place] [address] 08/04/2024 1:00 PM EDT Office Visit [facility] ADULT DENTAL [address] [place] [address] Nuvia Duarte [address] [place] [address] documented as of this encounter Goals Goal [...] documented as of this encounter Care Teams Medicare Interviewer Relationship Specialty Start Date End Date Sariah Vickers ANP [address] [place] [address] PCP - General Family Medicine 09/23/19 documented as of this encounter
--- OUTSIDE RECORDS SUMMARY | 2024-04-28 14:48 | XMS_ITS | Encounter Summary ---
Author Organization [facility] Address [address] [place] [address] 7t [place] [address] Care Team Providers Care Director Of Social Services Name Role Phone Sariah Vickers Primary Care Provider [phone] Reason for Visit * Reason Comments Med Refill Encounter Details Date Type Department Care Team (Late Contact Info) Description 07/17/2022 Refill [facility] [address] [place] [address] Sariah Vickers ANP [address] [place] [address] Neck pain Social History Tobacco Use Types [...] Description 04/29/2024 11:30 AM EDT Medication Management [address] [address] Yuri Pierre, PharmD [address] [place] [address] 07/02/2024 11:00 AM EDT Clinical Support [address] [address] Azeb Hall, RN 505 [place] [address] 07/15/2024 1:00 PM EDT Office Visit [address] [address] Sariah Vickers ANP [address] [place] [address] 08/04/2024 1:00 PM EDT Office Visit [facility] ADULT DENTAL [address] [place] [address] Nuvia Duarte [address] [place] [address] documented as of this encounter Visit Diagnoses Diagnosis Neck pain Cervicalgia documented in this encounter Care Teams Director Of Social Services Relationship Specialty Start Date End Date Sariah Vickers ANP [address] [place] [address] PCP - General Family Medicine 09/23/19 documented as of this encounter
--- OUTSIDE RECORDS SUMMARY | 2024-04-28 14:48 | XMS_ITS | Encounter Summary ---
Author Organization [employer] Address 75 [facility] 7t [place] [address] Care Team Providers Care Trenching 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 Name Role Phone Sariah Vickers Primary Care Provider [phone] Reason for Visit * Reason Comments Med Refill Encounter Details Date Type Department Care Team ([facility] st Contact Info) Description 03/28/2024 Refill [facility] [address] [place] [address] Sariah Vickers ANP 230 [place] [address] Cervicalgia Social History Tobacco Use Types Packs/Day [...] Description 04/29/2024 11:30 AM EDT Medication Management [address] [address] Yuri Pierre, Dileep [address] [place] [address] 07/02/2024 11:00 AM EDT Clinical Support [address] [address] Azeb Hall, RN 505 [place] [address] 07/15/2024 1:00 PM EDT Office Visit [address] [address] Sariah Vickers ANP [address] [place] [address] 08/04/2024 1:00 PM EDT Office Visit [facility] ADULT DENTAL [address] [place] [address] Nuvia Duarte [address] [place] [address] documented as of this encounter Goals Goal [...] documented as of this encounter Care Teams Trenching 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 Relationship Specialty Start Date End Date Sariah Vickers ANP [address] [place] [address] PCP - General Family Medicine 09/23/19 documented as of this encounter
--- OUTSIDE RECORDS SUMMARY | 2024-04-28 14:48 | XMS_ITS | Encounter Summary ---
Author Organization [facility] Address [address] [place] [address] 7t [place] [address] Care Team Providers Care Media Production Manager Name Role Phone Sariah Vickers Primary Care Provider [phone] Reason for Visit * Reason Comments Med Refill Encounter Details Date Type Department Care Team (Late Contact Info) Description 07/10/2022 Refill [facility] MEDICINE [address] [place] [address] Sariah Vickers ANP [address] [place] [address] Vertigo Social History Tobacco Use Types Packs/Day [...] 04/29/2024 11:30 AM EDT Medication Management [address] [address] Yuri Pierre, PharmD [address] [place] [address] 07/02/2024 11:00 AM EDT Clinical Support [address] [address] Azeb Hall, RN 505 [place] [address] 07/15/2024 1:00 PM EDT Office Visit [address] [address] Sariah Vickers ANP [address] [place] [address] 08/04/2024 1:00 PM EDT Office Visit [facility] ADULT DENTAL [address] [place] [address] Nuvia Duarte [address] [place] [address] documented as of this encounter Visit Diagnoses Diagnosis Vertigo Dizziness and giddiness documented in this encounter Care Teams Media Production Manager Relationship Specialty Start Date End Date Sariah Vickers ANP [address] [place] [address] PCP - General Family Medicine 09/23/19 documented as of this encounter
--- OUTSIDE RECORDS SUMMARY | 2024-04-28 14:48 | XMS_ITS | Encounter Summary ---
Author Organization [employer] Address 75 [facility] 7t [place] [address] Care Team Providers Care Rotary Bar Operator Name Role Phone Sariah Vickers Primary Care Provider [phone] Reason for Visit * Reason Comments Med Refill Encounter Details Date Type Department Care Team ([facility] st Contact Info) Description 03/04/2023 Refill [facility] 230 [place], [place] [phone] Brittney Nava MD 230 [place] [address] Social History Tobacco Use Types Packs/Day Years [...] 04/29/2024 11:30 AM EDT Medication Management [address] [address] Yuri Pierre, Dileep [address] [place] [address] 07/02/2024 11:00 AM EDT Clinical Support [address] [address] Azeb Hall, RN 505 [place] [address] 07/15/2024 1:00 PM EDT Office Visit [address] [address] Sariah Vickers ANP [address] [place] [address] 08/04/2024 1:00 PM EDT Office Visit [facility] ADULT DENTAL [address] [place] [address] Nuvia Duarte [address] [place] [address] documented as of this encounter Goals Goal [...] on filedocumented in this encounter Care Teams Rotary Bar Operator Relationship Specialty Start Date End Date Sariah Vickers ANP [address] [place] [address] PCP - General Family Medicine 09/23/19 documented as of this encounter
--- OUTSIDE RECORDS SUMMARY | 2024-04-28 14:48 | XMS_ITS | Encounter Summary ---
Author Organization [employer] Address 75 [facility] 7t h Floor [address] Care Team Providers Care Electrical Fitter Name Role Phone Sariah Vickers Primary Care Provider [phone] Reason for Visit * Reason Comments Med Refill Encounter Details Date Type Department Care Team ([facility] Contact Info) Description 08/14/2022 Refill [facility] MED & PEDS [address] [place] [address] Sariah Vickers ANP 230 [place] [address] Severe persistent asthma without complication Social History [...] Upcoming Encounters Date Type Department Care Team ([facility] Contact Info) Description 04/29/2024 11:30 AM EDT Medication Management [address] [address] Yuri Pierre, MikeD [address] [place] [address] 07/02/2024 11:00 AM EDT Clinical Support [address] [address] Azeb Hall, MARTIN 505 [place] [address] 07/15/2024 1:00 PM EDT Office Visit [address] [address] Sariah Vickers ANP [address] [place] [address] 08/04/2024 1:00 PM EDT Office Visit [facility] ADULT DENTAL [address] [place] [address] Nuvia Duarte [address] [place] [address] documented as of this encounter Visit Diagnoses Diagnosis Severe persistent asthma without complication documented in this encounter Care Teams Electrical Fitter Relationship Specialty Start Date End Date Sariah Vickers ANP [address] [place] [address] PCP - General Family Medicine 09/23/19 documented as of this encounter
--- OUTSIDE RECORDS SUMMARY | 2024-04-28 14:48 | XMS_ITS | Encounter Summary ---
Author Organization [employer] Address 75 [facility] 7t [place] [address] Care Team Providers Care Bank Vault Custodian Name Role Phone Sariah Vickers Primary Care Provider [phone] Encounter Details Date Type Department Care Team (Latest Contact Info) Description 04/23/2024 Travel Social History Tobacco Use Types Packs/Day [...] Description 04/29/2024 11:30 AM EDT Medication Management [address] [address] Yuri Pierre, PharmD [address] [place] [address] 07/02/2024 11:00 AM EDT Clinical Support [address] [address] Azeb Hall, MARTIN 505 [place] [address] 07/15/2024 1:00 PM EDT Office Visit [facility] MEDICINE [address] [place] [address] Sariah Vickers ANP 230 [place] [address] 08/04/2024 1:00 PM EDT Office Visit [facility] ADULT DENTAL [address] [place] [address] Nuvia Duarte 230 [place] [address] documented as of this encounter Goals Goal [...] documented as of this encounter Care Teams Bank Vault Custodian Relationship Specialty Start Date End Date Sariah Vickers ANP 230 [place] [address] PCP - General Family Medicine 09/23/19 documented as of this encounter
--- OUTSIDE RECORDS SUMMARY | 2024-04-28 14:48 | XMS_ITS | Encounter Summary ---
Author Organization [employer] Address 75 [facility] 7t [place] [address] Care Team Providers Care Front End Web Developer Name Role Phone Sariah Vickers Primary Care Provider [phone] Reason for Visit * Reason Onset Date Comments Chart Prep 04/12/2024 Encounter Details Date Type Department Care Team ([facility] st Contact Info) Description 04/12/2024 Telephone [facility] MEDICINE 230 [place] [address] Sariah Vickers ANP 230 [place] [address] Chart Prep Social History Tobacco Use Types [...] Description 04/29/2024 11:30 AM EDT Medication Management [facility] MED[facility] [address] [place] [address] Yuri Pierre, PharmD [address] [place] [address] 07/02/2024 11:00 AM EDT Clinical Support [facility] [address] [place] [address] Azeb Hall, MARTIN 505 [place] [address] 07/15/2024 1:00 PM EDT Office Visit [facility] MED[facility]INE [address] [place] [address] Sariah Vickers, ANP [address] [place] [address] 08/04/2024 1:00 PM EDT Office Visit [facility] ADULT DENTAL 230 [place], [place] [phone] Nuvia Duarte 230 [place] [address] documented as of this encounter Goals Goal [...] documented as of this encounter Care Teams Front End Web Developer Relationship Specialty Start Date End Date Sariah Vickers ANP 230 [place] [address] PCP - General Family Medicine 09/23/19 documented as of this encounter
--- OUTSIDE RECORDS SUMMARY | 2024-04-28 14:48 | XMS_ITS | Encounter Summary ---
Author Organization [facility] Address 75 [facility] 7t [place] [address] Care Team Providers Care Bicycle Repair Technician Name Role Phone Sariah Vickers Primary Care Provider [phone] Reason for Visit * Reason Onset Date Comments Nurse Triage 12/24/2022 Encounter Details Date Type Department Care Team ([facility] st Contact Info) Description 12/24/2022 Telephone [facility] MEDICINE 230 [place] [address] Sariah Vickers ANP 230 [place] [address] Nurse Triage Social History Tobacco Use Types [...] the past 12 months, has t he [employer], gas, oil or water [employer] threatened to shut off services in your [...] - 12/24/2022 1:11 PM EST Called pt.via [employer] refueling handler [id number] Benjamin. Pt. States that she wants to [...] regimen and possible referral to a new Manager Of Distribution due to pt. Not having jeremie in [...] accepted this outcome Please contact pt at [phone] documented in this encounter Plan of Treatment Upcoming Encounters Date Type Department Care Team (Late st Contact Info) Description 04/29/2024 11:30 AM EDT Medication Management [facility] MEDICINE 230 [place], [place] [phone] Yuri Pierre, PharmD 230 [place], [place] [phone] 07/02/2024 11:00 AM EDT Clinical Support [facility] MEDICINE [address] [place] [address] Azeb Hall, RN 505 [place] [address] 07/15/2024 1:00 PM EDT Office Visit [facility] MEDICINE [address] [place] [address] Sariah Vickers ANP 230 [place], [place] 08/04/2024 1:00 PM EDT Office Visit [facility] ADULT DENTAL [address] [place] [address] Nuvia Duarte 230 [place], [place] documented as of this encounter Goals Goal Patient Goal Type Associated Problems Recent Progress Patient-Stated? Author Blood Pressure < 140/90 Blood Pressure 124/93(2024 11:36 AM EST) No Phanis-Gambl Aida urbina, PharmD Record Your Blood Sugar As Directed General No Phanis-Aida Medina, PharmD Hemoglobin A1c < 7 Result Component 6.6( 8:44 AM EST) No Phanis-GambAida buck, PharmD documented as of this encounter Visit Diagnoses Not on filedocumented in this encounter Care Teams Bicycle Repair Technician Relationship Specialty Start Date End Date Sariah Vickers ANP [address] [place] [address] PCP - General Family Medicine 09/23/19 documented as of this encounter
--- OUTSIDE RECORDS SUMMARY | 2024-04-28 14:48 | XMS_ITS | Encounter Summary ---
Author Organization [employer] Address [address] [facility] [address] 7t [place] [address] Care Team Providers Care 8Th Grade Mathematics Teacher Name Role Phone Sariah Vickers Primary Care Provider [phone] Encounter Details Date Type Department Care Team (Late st Contact Info) Description 04/20/2024 Orders Only [facility] 230 [place], [place] [phone] Chava Presley MD 230 [place], [place] [phone] Social History Tobacco Use Types Packs/Day Years [...] Description 04/29/2024 11:30 AM EDT Medication Management [address] [address] Yuri Pierre, Dileep [address] [place] [address] 07/02/2024 11:00 AM EDT Clinical Support [address] [address] Azeb Hall, MARTIN 505 [place] [address] 07/15/2024 1:00 PM EDT Office Visit [facility] MEDICINE [address] [place] [address] Sariah Vickers ANP [address] [place] [address] 08/04/2024 1:00 PM EDT Office Visit [facility] ADULT DENTAL [address] [place] [address] Nuvia Duarte [address] [place] [address] documented as of this encounter Goals Goal Patient Goal Type Associated Problems Recent Progress Patient-Stated? Author Blood Pressure < 140/90 Blood Pressure 124/93(2024 11:36 AM EST) No Aida Ragland, PharmD Record Your Blood Sugar As Directed General No Piers-Aida Medina PharmD Hemoglobin A1c < 7 Result Component 6.6( 4 8:44 AM EST) No Katelin-Aida Medina PharmD documented as of this encounter Procedures Procedure Name Priority Date/Time Associated Diagnosis Comments D DIMER HIGH SENSITIVITY Routine 04/20/2024 1:21 PM EST documented in this encounter Results * D Dimer High Sensitivity (04/20/2024 1:21 PM EST) D Dimer High Sensitivity 218 NG/ML [facility] Comment:D-DIMER HS REFERENCE RANGENote: Our [...] MD LAB BLOOD ORDERABLES Final Resul t [facility] [address] [place] [phone] documented in this encounter Visit Diagnoses Not on filedocumented in this encounter Additional Health Concerns Assessment Noted Time PHQ-9 Depression Total Score: 12 08/2 024 2:58 PM EDT documented as of this encounter Care Teams 8Th Grade Mathematics Teacher Relationship Specialty Start Date End Date Sariah Vickers ANP [address] [place] [address] PCP - General Family Medicine 09/23/19 documented as of this encounter
--- OUTSIDE RECORDS SUMMARY | 2024-04-28 14:48 | XMS_ITS | Clinical Summary ---
Author Organization [facility] Address [address] [place] [address] Phone Care Team Providers Care Debridging 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 Name Role Phone Sariah Vickers NP Primary Care Provider [phone] Social History Tobacco Use Types Packs/Day Years [...] age to complete this topic Care Teams Debridging 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 Relationship Specialty Start Date End Date Sariah Vickers NP [address] [place] [phone] PCP - General 12/03/23
--- OUTSIDE RECORDS SUMMARY | 2024-04-28 14:48 | XMS_ITS | Encounter Summary ---
Author Organization [employer] Address 75 [facility] 7t [place] [address] Care Team Providers Care Tray Line Worker Name Role Phone Sariah Vickers Primary Care Provider [phone] Encounter Details Date Type Department Care Team [...] Description 04/29/2024 11:30 AM EDT Medication Management [address] [address] Yuri Pierre, PharmD [address] [place] [address] 07/02/2024 11:00 AM EDT Clinical Support [address] [address] Azeb Hall, MARTIN 505 [place] [address] 07/15/2024 1:00 PM EDT Office Visit [facility] MEDICINE [address] [place] [address] Sariah Vickers ANP 230 [place] [address] 08/04/2024 1:00 PM EDT Office Visit [facility] ADULT DENTAL [address] [place] [address] Nuvia Duarte 230 [place] [address] documented as of this encounter Goals Goal [...] documented as of this encounter Care Teams Tray Line Worker Relationship Specialty Start Date End Date Sariah Vickers ANP 230 [place] [address] PCP - General Family Medicine 09/23/19 documented as of this encounter
--- OUTSIDE RECORDS SUMMARY | 2024-04-28 14:48 | XMS_ITS | Encounter Summary ---
Author Organization [employer] Address 75 [facility] 7t [place] [address] Care Team Providers Care International First Officer Name Role Phone Sariah Vickers Primary Care Provider [phone] Encounter Details Date Type Department Care Team (Late st Contact Info) Description 03/29/[address] [facility] MED[facility]INE 230 [place] [address] Sariah Vickers ANP 230 [place] [address] Social History Tobacco Use Types Packs/Day Years [...] Description 04/29/2024 11:30 AM EDT Medication Management [facility] [address] [place] [address] Yuri Pierre, PharmD [address] [place] [address] 07/02/2024 11:00 AM EDT Clinical Support [address] [address] Azeb Hall, RN [address] [place] [address] 07/15/2024 1:00 PM EDT Office Visit [facility] MED[facility] [address] [place] [address] Sariah Vickers ANP 230 [place] [address] 08/04/2024 1:00 PM EDT Office Visit [facility] ADULT DENTAL [address] [place] [address] Nuvia Duarte 230 [place] [address] documented as of this encounter Goals Goal [...] documented as of this encounter Care Teams International First Officer Relationship Specialty Start Date End Date Sariah Vickers ANP 230 [place] [address] PCP - General Family Medicine 09/23/19 documented as of this encounter
--- OUTSIDE RECORDS SUMMARY | 2024-04-28 14:48 | XMS_ITS | Encounter Summary ---
Author Organization [employer] [facility] Address [address] [place] [address] 7t [place] [address] Care Team Providers Care Professor Of Historical Theology Name Role Phone Sariah Vickers Primary Care Provider [phone] Reason for Visit * Reason Onset Date Comments Referral 05/17/2022 Encounter Details Date Type Department Care Team ([facility] st Contact Info) Description 05/17/2022 Telephone [facility] MEDICINE [address] [place] [address] Sariah Vickers ANP 230 [place] [address] Referral Social History Tobacco Use Types Packs/Day [...] guide to vertigo. Please contact pt at [phone] documented in this encounter Plan of Treatment Upcoming Encounters Date Type Department Care Team ([facility] st Contact Info) Description 04/29/2024 11:30 AM EDT Medication Management [address] [address] Yuri Pierre, PharmD [address] [place] [address] 07/02/2024 11:00 AM EDT Clinical Support [address] [address] Azeb Hall, RN 505 [place] [address] 07/15/2024 1:00 PM EDT Office Visit [address] [address] Sariah Vickers ANP 230 [place] [address] 08/04/2024 1:00 PM EDT Office Visit [facility] ADULT DENTAL [address] [place] [address] Felicia, Nuvia 230 [place] [address] documented as of this encounter Visit Diagnoses Not on filedocumented in this encounter Care Teams Professor Of Historical Theology Relationship Specialty Start Date End Date Sariah Vickers ANP [address] [place] [address] PCP - General Family Medicine 09/23/19 documented as of this encounter
--- OUTSIDE RECORDS SUMMARY | 2024-04-28 14:48 | XMS_ITS | Encounter Summary ---
Author Organization [employer] [facility] Address 75 [facility] 7t [place] [address] Care Team Providers Care Evp Global Multimedia Sales Name Role Phone Sariah Vickers Primary Care Provider Reason for Visit * Reason Onset Date Comments Nurse Triage 01/14/2023 Encounter Details Date Type Department Care Team ([facility] st Contact Info) Description 01/14/2023 Telephone [facility] MEDICINE 230 [place] [address] Sariah Vickers ANP 230 [place] [address] Nurse Triage Social History Tobacco Use Types [...] t he electric, gas, oil or water [employer] threatened to shut off services in your [...] 01/14/2023 9:26 AM EST Called pt. Via [employer] real estate representative [phone] Kelly. Pt. States that she has been having a fire feeling in her legs. Its like A burning that goes down her legs . Pt. Unsure if it because of her Diabetes. Pt. Went to [facility] ED for pain on her left [...] at 10am. Will send note to clinical spiritual care coordinator to have note put in [...] Severe pain now, pt was seen at [facility] on 01/13 for pain in leg. Pt is still symptomatic The caller accepted this outcome Please contact pt at [phone] (purchase price analyst needed) documented in this encounter Plan of Treatment Upcoming Encounters Date Type Department Care Team ([facility] st Contact Info) Description 04/29/2024 11:30 AM EDT Medication Management [address] [address] Yuri Pierre, PharmD [address] [place] [address] 07/02/2024 11:00 AM EDT Clinical Support [address] [address] Azeb Hall, RN 505 [place] [address] 07/15/2024 1:00 PM EDT Office Visit [facility] MEDICINE [address] [place] [address] Sariah Vickers ANP 230 [place] [address] 08/04/2024 1:00 PM EDT Office Visit [facility] ADULT DENTAL 230 [place] [address] Nuvia Duarte 230 [place] [address] documented as of this encounter Goals Goal [...] on filedocumented in this encounter Care Teams [employer] Sales Relationship Specialty Start Date End Date Sariah Vickers, KAYLEE [address] [place] [address] PCP - General Family Medicine 09/23/19 documented as of this encounter
--- OUTSIDE RECORDS SUMMARY | 2024-04-28 14:48 | XMS_ITS | Encounter Summary ---
Author Organization [employer] [facility] Address 75 [facility] 7t [place] [address] Care Team Providers Care Digital Publishing Specialist Name Role Phone Sariah Vickers Primary Care Provider [phone] Reason for Visit * Reason Onset Date Comments Med Refill 03/04/2023 Encounter Details Date Type Department Care Team ([facility] st Contact Info) Description 03/04/2023 Telephone [facility] MEDICINE 230 [place] [address] Sariah Vickers ANP 230 [place] [address] Med Refill Social History Tobacco Use Types [...] 50 MG tablet To be sent to: [facility] [place], [place] - [address] [place] [address] documented in this encounter Plan of Treatment Upcoming Encounters Date Type Department Care Team (Late st Contact Info) Description 04/29/2024 11:30 AM EDT Medication Management [facility] MEDICINE [address] [place] [address] Yuri Pierre, PharmD [address] [place] [address] 07/02/2024 11:00 AM EDT Clinical Support [address] [address] Azeb Hall, RN 505 [place] [address] 07/15/2024 1:00 PM EDT Office Visit [facility] MEDICINE [address] [place] [address] Sariah Vickers ANP 230 [place] [address] 08/04/2024 1:00 PM EDT Office Visit [facility] ADULT DENTAL [address] [place] [address] Nuvia Duarte 230 [place] [address] documented as of this encounter Goals Goal [...] on filedocumented in this encounter Care Teams Digital Publishing Specialist Relationship Specialty Start Date End Date Sariah Vickers ANP 230 [place] [address] PCP - General Family Medicine 09/23/19 documented as of this encounter
--- OUTSIDE RECORDS SUMMARY | 2024-04-28 14:48 | XMS_ITS | Encounter Summary ---
Author Organization [employer] Address 75 [facility] 7t [place] [address] Care Team Providers Care Entry Level Programmer Name Role Phone Anthony Ruiz Primary Care Provider [phone] Reason for Visit * Reason Comments lung pain Shortness of Breath Encounter Details Date Type Department Care Team ([facility] st Contact Info) Description 04/20/2024 11:00 AM EST Office Visit [facility] 230 [place] [address] Chava Presley MD 230 [place] [address] Posterior chest pain (Primary Dx); Asthma-COPD overlap [...] Nuvia Ho is a 63 y.o. female. 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 HPI Nuvia had onset 6-7 days ago of knife-like and pressure pain in right posterior chest, worse with inspiration, movements of torso and right UE. Has associated SOB. Has associated cough, wheezing at night, occasional chills. No fever or hemoptysis. Had neg rapid covid and flu tests at [facility] 04/15/2024. Tylenol helps a little. Using Duoneb, Singulair, Fluticasone-Salmeterol 250-50 MCG/ACT aerosol powder Followed by Broadcaster Dr. Preciado [place] [facility]. Lives with son. Former smoker. Not employed. [...] 04/29/2024 11:30 AM EDT Medication Management [address] [address] Yuri Pierre, PharmD [address] [place] [address] 07/02/2024 11:00 AM EDT Clinical Support [address] [address] Azeb Hall, MARTIN 505 [place] [address] 07/15/2024 1:00 PM EDT Office Visit [address] [address] Anthony Ruiz ANP [address] [place] [address] 08/04/2024 1:00 PM EDT Office Visit [facility] ADULT DENTAL 230 [place] [address] Nuvia Daurte 230 [place] [address] Scheduled Orders Name Type Priority Associated Diagnoses Orde r Schedule D-Dimer, Quantitative Lab Routine Posterior chest pain Expected: 04/20/2024 (Approximate), Expires: 04/20/2025 documented as of this encounter Goals Goal Patient Goal Type Associated Problems Recent Progress Patient-Stated? Author Blood Pressure < 140/90 Blood Pressure 124/93(2024 11:36 AM EST) No Phanis-Veronica Medinasa, PharmD Record Your Blood Sugar As Directed General No Katelin-Aida Medina PharmD Hemoglobin A1c < 7 Result Component 6.6( 4 8:44 AM EST) No Phanis-Veronica Medinasa, PharmD documented as of this encounter Procedures Procedure Name Priority Date/Time Associated Diagnosis Comments XR CHEST 2 VIEWS Routine 04/20/2024 1:05 PM EST Posterior chest pain documented in this encounter Results * XR Chest 2 Views (04/20/2024 1:05 PM EST) Anatomical Region Laterality Modality Chest Radiographic Griselda ging 04/20/2024 1:05 PM EST Narrative 04/21/2024 9:57 AM EST ? [facility] ?[address] ?[place] [address] ?XRay Report ? Signed ? Patient: Nuvia Fay E ?MR ?? #: [id number] ? : 1960 ?Acct:[id number] ? Age/Sex: 63 / F ?ADM Date: 03/04/25 ? Loc: HO.XRAY ? Attending Dr: Chava Presley MD ? Ordering Physician: CHAVA PRESLEY MD ?? Date of Service: 04/20/24 ?? Procedure(s): XR chest 2V ?? Accession Number(s): [id number] ? cc: CHAVA PRESLEY MD; ANTHONY RUIZ [...] DD/ 1305 ? TD/TT: 04/20/24 1310 ? Manager Child: MSM ? Procedure Note Donconnerter, Image - 04/21/2024 [place] [address] XRay Report Signed Patient: Nuvia Fay EMR #: [id number] : 1960cct:[id number] Age/Sex: 63 / FADM Date: 04/20/24 Loc: HO.PAVANAY Attending Dr: Chava Presley MD Ordering Physician: CHAVA PRESLEY MD Date of Service: 04/20/24 Procedure(s): XR chest 2V Accession Number(s): [id number] cc: CHAVA PRESLEY MD; ANTHONY RUIZ NP [...] Saad Howell MD 04/21/2024 09:54 AM EST Dictated By: Saad Howell MD Signed By: <Electronically signed by Saad Howell MD in OV> 04/21/24 0954 DD/ 1305 TD/TT: 04/20/24 1310 Manager Child: MSM us Chava Presley MD IMG XR PROCEDURES Edited Result - Final documented in this encounter Visit Diagnoses Diagnosis Posterior chest pain- Primary Asthma-COPD overlap syndrome (CMS/HCC) Neck pain Cervicalgia documented in this encounter Additional Health Concerns Assessment Noted Time PHQ-9 Depression Total Score: 12 024 2:58 PM EDT documented as of this encounter Care Teams Entry Level Programmer Relationship Specialty Start Date End Date Anthony Ruiz ANP 230 [place] [address] PCP - General Family Medicine 09/23/19 documented as of this encounter
--- OUTSIDE RECORDS SUMMARY | 2024-04-28 14:48 | XMS_ITS | Encounter Summary ---
Author Organization [employer] Address 75 [facility] 7t [place] [address] Care Team Providers Care Healthcare Marketer Name Role Phone Sariah Vickers Primary Care Provider Reason for Visit * Reason Comments Med Refill Encounter Details Date Type Department Care Team ([facility] st Contact Info) Description 03/07/2023 Refill [facility] MEDICINE 230 [place] [address] Sariah Vickers ANP 230 [place] [address] Vertigo Social History Tobacco Use Types Packs/Day [...] Description 04/29/2024 11:30 AM EDT Medication Management [address] [address] Yuri Pierre, Dileep [address] [place] [address] 07/02/2024 11:00 AM EDT Clinical Support [address] [address] Azeb Hall, RN 505 [place] [address] 07/15/2024 1:00 PM EDT Office Visit [facility] MEDICINE [address] [place] [address] Sariah Vickers ANP 230 [place] [address] 08/04/2024 1:00 PM EDT Office Visit [facility] ADULT DENTAL [address] [place] [address] Nuvia Duarte [address] [place] [address] documented as of this encounter Goals Goal [...] giddiness documented in this encounter Care Teams Healthcare Marketer Relationship Specialty Start Date End Date Sariah Vickers ANP [address] [place] [address] PCP - General Family Medicine 09/23/19 documented as of this encounter
--- OUTSIDE RECORDS SUMMARY | 2024-04-28 14:48 | XMS_ITS | Encounter Summary ---
Author Organization [employer] Address 75 [facility] 7t [place] [address] Care Team Providers Care Filter Helper Name Role Phone Sariah Vickers Primary Care Provider [phone] Reason for Visit * Reason Comments Med Refill Encounter Details Date Type Department Care Team ([facility] st Contact Info) Description 05/09/2023 Refill [facility] MEDICINE 230 [place] [address] Sariah Vickers ANP [address] [place] [address] High cholesterol Social History Tobacco Use Types [...] Description 04/29/2024 11:30 AM EDT Medication Management [address] [address] Yuri Pierre, Dileep [address] [place] [address] 07/02/2024 11:00 AM EDT Clinical Support [address] [address] Azeb Hall, RN [address] [place] [address] 07/15/2024 1:00 PM EDT Office Visit [facility] MEDICINE [address] [place] [address] Sariah Vickers ANP [address] [place] [address] 08/04/2024 1:00 PM EDT Office Visit [facility] ADULT DENTAL [address] [place] [address] Nuvia Duarte [address] [place] [address] documented as of this encounter Goals Goal [...] hypercholesterolemia documented in this encounter Care Teams Filter Helper Relationship Specialty Start Date End Date Sariah Vickers ANP [address] [place] [address] PCP - General Family Medicine 09/23/19 documented as of this encounter
--- OUTSIDE RECORDS SUMMARY | 2024-04-28 14:48 | XMS_ITS | Encounter Summary ---
Author Organization [employer] Address 75 [facility] 7t [place] [address] Care Team Providers Care Budget Accountant Name Role Phone Anthony Ruiz Primary Care Provider [phone] Encounter Details Date Type Department Care Team (Late st Contact Info) Description 04/12/2024 Orders Only [facility] External Provider, [place] [facility] Social History Tobacco Use Types Packs/Day [...] Description 04/29/2024 11:30 AM EDT Medication Management [facility] MEDICINE [address] [place] [address] Yuri Pierre, Dileep [address] [place] [address] 07/02/2024 11:00 AM EDT Clinical Support [address] [address] Azeb Hall RN 505 [place] [address] 07/15/2024 1:00 PM EDT Office Visit [facility] MEDICINE [address] [place] [address] Anthony Ruiz ANP 230 [place] [address] 08/04/2024 1:00 PM EDT Office Visit [facility] ADULT DENTAL [address] [place] [address] Nuvia Duarte 230 [place] [address] documented as of this encounter Goals Goal Patient Goal Type Associated Problems Recent Progress Patient-Stated? Author Blood Pressure < 140/90 Blood Pressure 124/93(2024 11:36 AM EST) No Aida Ragland PharmBear Record Your Blood Sugar As Directed General No Aida Ragland, PharmD Hemoglobin A1c < 7 Result Component 6.6( 8:44 AM EST) No Aida Ragland PharmBear documented as of this encounter Procedures Procedure Name Priority Date/Time Associated Diagnosis Comments BI MAMMOGRAM SCREENING TOMOSYNTHESIS BILATERAL Routine 04/12/2024 1:48 PM EST documented in this encounter Results * BI Mammogram Screening Tomosynthesis Bilateral (04/12/2024 1:48 PM EST) Anatomical Region Laterality Modality Breast Bilateral Mammography 04/12/2024 1:48 PM EST Narrative 04/17/2024 12:38 PM EST ? [facility] ? [address] ?[place] [address] ? Mammography Report ? Signed ? Patient: Nuvia Fay ?MR ?? #: [id number] ? : 1960 ?Acct:[id number] ? Age/Sex: 63 / F ?ADM Date: 04/12/24 ? Loc: HO.MAMMO ? Attending Dr: Monica Lozano CNM ? Ordering Physician: Monica Lozano CNEstefania ?Results: 2Beni ?? gn Findings ? Date of Service: 04/12/24 ?Follow Up: 1 Year From Orig ?? inal Mammogram ? Procedure(s): MM tomosynthesis screening BI ?? Accession Number(s): [id number] ? cc: Monica Lozano CNM; ANTHONY RUIZ [...] DD/ 1348 ? TD/TT: 04/12/24 1405 ? Guest Relations Coordinator: ? Procedure Note Otoniel, Image - 04/17/2024 [facility] [address] [place] [address] [place] [address] Mammography Report Signed Patient: Nuvia Fay EMR #: [id number] : 1Acct:[id number] Age/Sex: 63 / FADM Date: 04/12/24 Loc: AMARJIT Attending Dr: Monica Lozano CNM Ordering Physician: Monica LozanoMResults: 2Beni gn Findings Date of Service: 04/12/24Follow Up: 1 Year From Orig inal Mammogram Procedure(s): MM tomosynthesis screening BI Accession Number(s): [id number] cc: Monica Lozano CNM; ANTHONY RUIZ YARN COMBER EXAMINATION: MM SCREENING DIGITAL BREAST TOMOSYNTHESIS, BILATERAL [...] by: Cherrie Roberts DO 04/17/2024 12:35 PM [facility] Dictated By: Cherrie Roberts DO Signed By: <Electronically signed by Cherrie Roberts DO in OV> 04/17/24 1235 DD/ 1348 TD/TT: 04/12/24 1405 Guest Relations Coordinator: [facility] External Provider IMG BI PROCEDURES Edited Result - Final documented in this encounter Visit Diagnoses Not on filedocumented in this encounter Additional Health Concerns Assessment Noted Time PHQ-9 Depression Total Score: 12 024 2:58 PM EDT documented as of this encounter Care Teams Budget Accountant Relationship Specialty Start Date End Date Anthony Ruiz ANP 230 [place] [address] PCP - General Family Medicine 09/23/19 documented as of this encounter
--- OUTSIDE RECORDS SUMMARY | 2024-04-28 14:48 | XMS_ITS | Encounter Summary ---
Author Organization [employer] Address 75 [facility] 7t [place] [address] Care Team Providers Care Manager Architecture Name Role Phone Sariah Vickers Primary Care Provider [phone] Reason for Visit * Reason Onset Date Comments Med Refill Durable Medical Equipment 07/15/2023 Foam M attress/Raised Toilet Seat Encounter Details Date Type Department Care Team ([facility] st Contact Info) Description 07/15/2023 Refill [facility] MEDICINE 230 [place], [place] [phone] Sariah Vickers ANP 230 [place] [address] Neck pain Social History Tobacco Use Types [...] Please see request sent via email by [facility] Assurance Auditor Arlin Baker. Please Advise. Good morning, Our [...] Description 04/29/2024 11:30 AM EDT Medication Management [address] [address] Yuri Pierre, PharmD 230 [place] [address] 07/02/2024 11:00 AM EDT Clinical Support [address] [address] Azeb Hall, MARTIN 505 [place] [address] 07/15/2024 1:00 PM EDT Office Visit [facility] MEDICINE 230 [place] [address] Sariah Vickers ANP 230 [place] [address] 08/04/2024 1:00 PM EDT Office Visit [facility] ADULT DENTAL 230 [place] [address] Felicia, Nuvia 230 [place] [address] documented as of this encounter Goals Goal Patient Goal Type Associated Problems Recent Progress Patient-Stated? Author Blood Pressure < 140/90 Blood Pressure 124/93(2024 11:36 AM EST) No Phanis-Aida Medina, PharmD Record Your Blood Sugar As Directed General No Phanis-Gambl Veronica urbinasa, PharmD Hemoglobin A1c < 7 Result Component 6.6( 4 8:44 AM EST) No Phanis-Aida Medina, PharmD documented as of this encounter Visit Diagnoses Diagnosis Neck pain Cervicalgia documented in this encounter Additional Health Concerns Assessment Noted Time PHQ-9 Depression Total Score: 2 06/23/19 24 2:10 PM EDT documented as of this encounter Care Teams Manager Architecture Relationship Specialty Start Date End Date Sariah Vickers ANP [address] [place] [address] PCP - General Family Medicine 09/23/19 documented as of this encounter
--- OUTSIDE RECORDS SUMMARY | 2024-04-28 14:48 | XMS_ITS | Encounter Summary ---
Author Organization [employer] [facility] Address [address] [place] [address] 7t [place] [address] Care Team Providers Care Traffic Analysis Technician Name Role Phone Sariah Vickers Primary Care Provider [phone] Reason for Visit * Reason Comments Med Refill Encounter Details Date Type Department Care Team (Late Contact Info) Description 07/12/2022 Refill [facility] MEDICINE [address] [place] [address] Sariah Vickers ANP 230 [place] [address] Social History Tobacco Use Types Packs/Day Years [...] Description 04/29/2024 11:30 AM EDT Medication Management [address] [address] Yuri Pierre, MikeD 230 [place] [address] 07/02/2024 11:00 AM EDT Clinical Support [address] [address] Azeb Hall, RN 505 [place] [address] 07/15/2024 1:00 PM EDT Office Visit [address] [address] Sariha Vickers ANP [address] [place] [address] 08/04/2024 1:00 PM EDT Office Visit [facility] ADULT DENTAL [address] [place] [address] Nuvia Duarte [address] [place] [address] documented as of this encounter Visit Diagnoses Not on filedocumented in this encounter Care Teams Traffic Analysis Technician Relationship Specialty Start Date End Date Sariah Vickers ANP [address] [place] [address] PCP - General Family Medicine 09/23/19 documented as of this encounter
--- OUTSIDE RECORDS SUMMARY | 2024-04-28 14:48 | XMS_ITS | Encounter Summary ---
Author Organization [employer] Address [address] [facility] [address] 7t [place] [address] Care Team Providers Care Senior Electronics Engineer Name Role Phone Sariah Vickers Primary Care Provider [phone] Reason for Visit * Reason Comments Med Refill Encounter Details Date Type Department Care Team ([facility] st Contact Info) Description 07/10/2023 Refill [facility] 230 [place] [address] Sariah Vickers ANP 230 [place] [address] Chronic SI joint pain Social History Tobacco [...] Description 04/29/2024 11:30 AM EDT Medication Management [facility] MEDICINE [address] [place] [address] Yuri Pierre, MikeD [address] [place] [address] 07/02/2024 11:00 AM EDT Clinical Support [address] [address] Azeb Hall, RN 505 [place] [address] 07/15/2024 1:00 PM EDT Office Visit [address] [address] Sariah Vickers ANP [address] [place] [address] 08/04/2024 1:00 PM EDT Office Visit [facility] ADULT DENTAL [address] [place] [address] Nuvia Duarte [address] [place] [address] documented as of this encounter Goals Goal [...] as of this encounter Care Teams Senior Electronics Engineer Relationship Specialty Start Date End Date Sariah Vickers ANP [address] [place] [address] PCP - General Family Medicine 09/23/19 documented as of this encounter
--- OUTSIDE RECORDS SUMMARY | 2024-04-28 14:48 | XMS_ITS | Encounter Summary ---
Author Organization [employer] Address 75 [facility] 7t [place] [address] Care Team Providers Care Project Engineer Name Role Phone Sariah Vickers Primary Care Provider [phone] Reason for Visit * Reason Comments Med Refill Encounter Details Date Type Department Care Team ([facility] st Contact Info) Description 12/19/2022 Refill [facility] MEDICINE 230 [place] [address] Sariah Vickers ANP 230 [place] [address] Vertigo Social History Tobacco Use Types Packs/Day [...] 04/29/2024 11:30 AM EDT Medication Management [address] [address] Yuri Pierre, Dileep [address] [place] [address] 07/02/2024 11:00 AM EDT Clinical Support [address] [address] Azeb Hall, RN 505 [place] [address] 07/15/2024 1:00 PM EDT Office Visit [facility] MEDICINE [address] [place] [address] Sariah Vickers ANP 230 [place] [address] 08/04/2024 1:00 PM EDT Office Visit [facility] ADULT DENTAL [address] [place] [address] Nuvia Duarte [address] [place] [address] documented as of this encounter Goals Goal [...] giddiness documented in this encounter Care Teams Project Engineer Relationship Specialty Start Date End Date Sariah Vickers ANP [address] [place] [address] PCP - General Family Medicine 09/23/19 documented as of this encounter
--- OUTSIDE RECORDS SUMMARY | 2024-04-28 14:48 | XMS_ITS | Encounter Summary ---
Author Organization [employer] Address 75 [facility] 7t [place] [address] Care Team Providers Care Cork Cutter Name Role Phone Sariah Vickers Primary Care Provider [phone] Reason for Visit * Reason Comments Med Refill Encounter Details Date Type Department Care Team ([facility] st Contact Info) Description 12/27/2022 Refill [facility] MEDICINE 230 [place] [address] Sariah Vickers ANP 230 [place] [address] Neck pain Social History Tobacco Use Types [...] 04/29/2024 11:30 AM EDT Medication Management [address] [address] Yuri Pierre, Dileep [address] [place] [address] 07/02/2024 11:00 AM EDT Clinical Support [address] [address] Azeb Hall, RN 505 [place] [address] 07/15/2024 1:00 PM EDT Office Visit [facility] MEDICINE [address] [place] [address] Sariah Vickesr ANP 230 [place] [address] 08/04/2024 1:00 PM EDT Office Visit [facility] ADULT DENTAL [address] [place] [address] Nuvia Duarte [address] [place] [address] documented as of this encounter Goals Goal [...] Cervicalgia documented in this encounter Care Teams Cork Cutter Relationship Specialty Start Date End Date Sariah Vickers ANP [address] [place] [address] PCP - General Family Medicine 09/23/19 documented as of this encounter
== END 2024-04-28 13:40 | disposition home or self-care (01) ==
LOC: HO.HPS 12:44
PROVIDERS: PCP Nurse Practitioner Primary Care; Visit Provider Internal Medicine Pulmonary Disease
DX: J44.89 Other specified chronic obstructive pulmonary disease (principal); Z91.09 Other allergy status, other than to drugs and biological substances; Z01.810 Encounter for preprocedural cardiovascular examination; I27.20 Pulmonary hypertension, unspecified
CPT/HCPCS: 99214; G2211

== ENCOUNTER → 2024-04-28 12:44 | Outpatient (BNVA) | payer OTHER, SELFPAY | PROVIDERS: PCP Nurse Practitioner Primary Care; Visit Provider Internal Medicine Pulmonary Disease | DX: Z01.810 Encounter for preprocedural cardiovascular examination (principal); J44.89 Other specified chronic obstructive pulmonary disease; Z91.09 Other allergy status, other than to drugs and biological substances; I27.20 Pulmonary hypertension, unspecified | CPT/HCPCS: 99212 ==

== ENCOUNTER 2024-05-04 10:59 | Outpatient (AMB) | payer OTHER, SELFPAY ==
--- NOTE | 2024-05-04 10:59 | A.OFFVIS_ITS ---
Intake Visit Reasons: Abscess on lower buttock Intake Note: Patient called and scheduled appointment c/o abscess on lower buttock. Reports tried warm compresses. Patient c/o: started flaring over the weekend. Of note: [facility] 03-29-2024 rxn to Doxycycline reported. Rn Psychiatric Required: Yes Accompanied by: Self / Same As Patient Allergies aspirin [Aspirin] Allergy (Mild, Verified 05/04/24 11:03) ITCHY THROAT azithromycin Allergy (Unknown, Verified 05/04/24 11:03) Unknown naproxen Allergy (Unknown, Verified 05/04/24 11:03) Unknown simvastatin Allergy (Unknown, Verified 05/04/24 11:03) Unknown Fish Containing Products Allergy (Verified 05/04/24 11:03) Swelling vancomycin Allergy (Verified 05/04/24 11:03) Rash onion [ONION] Adverse Reaction (Mild, Verified 05/04/24 11:03) RED FACE Medication List - Last Reconciled 05/04/24 by Yaniv Frank MD acetaminophen 650 mg PO Q6H PRN albuterol sulfate 90 mcg/actuation (Ventolin HFA) 2 puffs inhalation Q4-6H PRN amlodipine 10 mg PO DAILY atorvastatin 80 mg PO BEDTIME blood sugar diagnostic (FreeStyle Lite Strips) TEST BLOOD SUGAR FOUR TIMES DAILY blood-glucose meter (FreeStyle Flash System kit) As directed blood-glucose meter,continuous (FreeStyle Jalil 3 Stanley) Use daily As directed to monitor blood glucose blood-glucose sensor (FreeStyle Jalil 3 Plus Sensor device) Use daily As directed to monitor glucose buspirone 15 mg PO TID cephalexin 500 mg PO TID cetirizine 10 mg PO QPM clonazepam 0.5 mg PO BEDTIME PRN clonazepam (Klonopin) 1 mg PO DAILY docusate sodium (Stool Softener) 100 mg PO BID enalapril maleate 20 mg PO DAILY fluticasone propionate 50 mcg/actuation 2 sprays intranasal QAM gabapentin 400 mg PO BEDTIME insulin lispro (Humalog KwikPen (U-100) Insulin) 4 units subcut TID PRN ipratropium-albuterol 0.5 mg-3 mg(2.5 mg base)/3 mL 3 mL inhalation Q6H PRN ipratropium-albuterol 20-100 mcg/actuation (Combivent Respimat) 1 puff inhalation BID PRN MDD 6 puffs per day Lactobac. rhamnosus GG-inulin 10 billion cell -200 mg ([facility] Bondora (by isePankur) [facility]) 1 cap PO DAILY lancets (TRUEplus Lancets) TEST BLOOD SUGAR FOUR TIMES DAILY leg brace (Knee Support Brace) As directed levothyroxine 75 mcg PO QAM lidocaine 5% 1 patch topical DAILY PRN meclizine 25 mg PO TID PRN metoclopramide HCl (Reglan) 5 mg PO TID montelukast 10 mg PO BEDTIME oilqrwnfshxq-jgij-qeoii acid 18-400 mg-mcg (Certavite-Antioxidant) 1 tab PO DAILY omalizumab 300 mg subcut Q2W 28 days omeprazole 20 mg PO BID pen needle, diabetic (UltiCare Pen Needle) USE FOUR TIMES DAILY plecanatide (Trulance) 3 mg PO DAILY potassium chloride ER 20 mEq PO BID prednisone 40 mg (2 x 20 mg) PO DAILY pyridoxine (vitamin B6) 100 mg PO DAILY risperidone 0.5 mg PO BID semaglutide (Ozempic) 0.5 mg (0.736 mL) subcut SA sennosides (senna) 17.2 mg (2 x 8.6 mg) PO BEDTIME tiotropium bromide (Spiriva with HandiHaler) 1 cap inhalation DAILY tramadol 50 mg PO Q12H PRN zolpidem 10 mg PO BEDTIME PRN HPI Comments Details: Patient whom I know well from the past who presents here with a carbuncle/infected skin cyst involving her right buttock area. She has had history of these in the past. Because of progression of symptoms he presents here for further evaluation. Chart was reviewed and patient evaluated [facility] Medical History (Updated 04/28/24 @ 14:00 by Ron Preciado MD) Environmental allergies Trochanteric bursitis of right hip Patellofemoral arthritis of left knee Dry mouth Type 2 diabetes mellitus with hyperglycemia Menopausal state Type 2 diabetes mellitus MOCK (dyspnea on exertion) Kidney stone on left side Leg pain Tear of medial meniscus of left knee Abnormal finding on ultrasound Abnormal ultrasound of kidney Bilateral renal cysts Severe persistent asthma Asthma Bilateral hand pain Bilateral knee pain Carpal tunnel syndrome of right wrist Cubital tunnel syndrome on right Renal calculi UTI (urinary tract infection) History of kidney stones COVID-19 COVID-19 COPD exacerbation Bronchitis Chest pain Acute asthma exacerbation Tubular adenoma of colon Vulvovaginitis Bronchitis Candidiasis of mouth and esophagus Yeast infection Papanicolaou smear for cervical cancer screening Preop pulmonary/respiratory exam Allergic rhinitis Anxiety and depression Fibromyalgia HTN (hypertension) PTSD (post-traumatic stress disorder) Vertigo Diabetes Spondylosis of cervical region without myelopathy or radiculopathy Low vitamin D level Non-toxic multinodular goiter Hypothyroidism DVT (deep venous thrombosis) Cocaine abuse Surgical History (Updated 05/04/24 @ 11:11 by Yaniv Frank MD) History of esophagogastroduodenoscopy (EGD) H/O colonoscopy with polypectomy History of selective injection of anesthetic agent around lumbar nerve root Hx of right breast biopsy History of hysterectomy History of lithotripsy Family History Father No problems noted. 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 Old carbuncle infection sites visible but none actively infected. This current 1 measures roughly 1 x 1 cm. Assessment & Plan Assessment & Plan (1) Carbuncle: Code(s): L02.93 - Carbuncle, unspecified Category: Surgical Plan Current plan is to attempt conservative therapy with warm compresses, antib iotics, and patient was see me in a few days' time for follow-up. Should she developed progression of symptoms, she was instructed to return to the office sooner. All questions answered. Patient was see me as directed or p.r.n.. Medications: New cephalexin 500 mg PO TID 30 caps 0RF Coding Level of Care Code Est Pt Level 4 (31022) Diagnoses Carbuncle L02.93
--- OUTSIDE RECORDS SUMMARY | 2024-05-04 13:09 | XMS_ITS | Encounter Summary ---
Author Organization [employer] [facility] Address [address] [place] [address] 7t [place] [address] Care Team Providers Care Acoustical Carpenter Name Role Phone Sariah Vickers Primary Care Provider Encounter Details Date Type Department Care Team (Latest Contact Info) Description 05/15/2018 Abstract [facility] CONVERSIONS Dental, Provider, DDS Social History Tobacco [...] AM EDT Clinical Support [facility] MEDICINE [address] [place] [address] Azeb Hall RN [address] [place] [address] 07/15/2024 1:00 PM EDT Office Visit [facility] MEDICINE [address] [place] [address] Sariah Vickers ANP [address] [place] [address] 08/04/2024 1:00 PM EDT Office Visit [facility] ADULT DENTAL [address] [place] [address] Nuvia Duarte [address] [place] [address] documented as of this encounter Visit Diagnoses Not on filedocumented in this encounter Care Teams Acoustical Carpenter Relationship Specialty Start Date End Date Sariha Vickers ANP [address] [place] [address] PCP - General Family Medicine 09/23/19 documented as of this encounter
--- OUTSIDE RECORDS SUMMARY | 2024-05-04 13:09 | XMS_ITS | Encounter Summary ---
Author Organization [employer] [facility] Address [address] [place] [address] 7t [place] [address] Care Team Providers Care Electrolog Operator Name Role Phone Sariah Vickers Primary Care Provider [phone] Encounter Details Date Type Department Care Team (Latest Contact Info) Description 04/14/2020 Abstract [facility] CONVERSIONS Dental, Provider, DDS Social History [...] EDT Clinical Support [facility] MEDICINE [address] [place] [address] Azeb Hall RN [address] [place] [address] 07/15/2024 1:00 PM EDT Office Visit [facility] MEDICINE [address] [place] [address] Sariah Vickers ANP [address] [place] [address] 08/04/2024 1:00 PM EDT Office Visit [facility] ADULT DENTAL [address] [place] [address] Nuvia Duarte [address] [place] [address] documented as of this encounter Visit Diagnoses Not on filedocumented in this encounter Care Teams Electrolog Operator Relationship Specialty Start Date End Date Sariah Vickers ANP [address] [place] [address] PCP - General Family Medicine 09/23/19 documented as of this encounter
--- OUTSIDE RECORDS SUMMARY | 2024-05-04 13:09 | XMS_ITS | Encounter Summary ---
Author Organization [employer] Address 75 [facility] 7t [place] [address] Care Team Providers Care Ticket Puller Name Role Phone Sariah Vickers Primary Care Provider [phone] Reason for Visit * Reason Comments Med Refill Encounter Details Date Type Department Care Team ([facility] st Contact Info) Description 08/22/2023 Refill [facility] [address] [place] [address] Sariah Vickers ANP [address] [place] [address] Neck pain Social History Tobacco Use Types [...] Description 07/02/2024 11:00 AM EDT Clinical Support [facility] [address] [place] [address] Azeb Hall RN [address] [place] [address] 07/15/2024 1:00 PM EDT Office Visit [facility] [address] [place] [address] Sariah Vickers ANP [address] [place] [address] 08/04/2024 1:00 PM EDT Office Visit [facility] ADULT DENTAL [address] [place] [address] Nuvia Duarte [address] [place] [address] documented as of this encounter Goals Goal [...] documented as of this encounter Care Teams Ticket Puller Relationship Specialty Start Date End Date Sariah Vickers ANP [address] [place] [address] PCP - General Family Medicine 09/23/19 documented as of this encounter
--- OUTSIDE RECORDS SUMMARY | 2024-05-04 13:09 | XMS_ITS | Encounter Summary ---
Author Organization [employer] Address 75 [facility] 7t [place] [address] Care Team Providers Care Informatica Developer Name Role Phone Sariah Vickers Primary Care Provider [phone] Reason for Visit * Reason Comments Med Refill Encounter Details Date Type Department Care Team ([facility] Contact Info) Description 09/13/2022 Refill [facility] [address] [place] [address] Sariah Vickers ANP [address] [place] [address] Severe persistent allergic asthma without complication Social [...] Encounters Date Type Department Care Team ([facility] Contact Info) Description 07/02/2024 11:00 AM EDT Clinical Support [facility] [address] [place] [address] Azeb Hall, RN [address] [place] [address] 07/15/2024 1:00 PM EDT Office Visit [facility] [address] [place] [address] Sariah Vickers ANP [address] [place] [address] 08/04/2024 1:00 PM EDT Office Visit [facility] ADULT DENTAL [address] [place] [address] Nuvia Duarte [address] [place] [address] documented as of this encounter Visit Diagnoses Diagnosis Severe persistent allergic asthma without complication documented in this encounter Care Teams Informatica Developer Relationship Specialty Start Date End Date Sariah Vickers ANP [address] [place] [address] PCP - General Family Medicine 09/23/19 documented as of this encounter
--- OUTSIDE RECORDS SUMMARY | 2024-05-04 13:10 | XMS_ITS | Encounter Summary ---
Author Organization [employer] Address 75 [facility] 7t [place] [address] Care Team Providers Care Director Business Integration Name Role Phone Sariah Vickers Primary Care Provider [phone] Reason for Visit * Reason Comments Med Refill Encounter Details Date Type Department Care Team ([facility] st Contact Info) Description 10/24/[address] [facility] MEDICINE [address] [place] [address] Sariah Vickers ANP [address] [place] [address] Neck pain Social History Tobacco Use Types [...] 07/02/2024 11:00 AM EDT Clinical Support [facility] MEDICINE [address] [place] [address] Azeb Hall RN [address] [place] [address] 07/15/2024 1:00 PM EDT Office Visit [facility] MEDICINE [address] [place] [address] Sariah Vickers ANP [address] [place] [address] 08/04/2024 1:00 PM EDT Office Visit [facility] ADULT DENTAL [address] [place] [address] Nuvia Duarte [address] [place] [address] documented as of this encounter Goals Goal [...] as of this encounter Care Teams Director Business Integration Relationship Specialty Start Date End Date Sariah Vickers ANP [address] [place] [address] PCP - General Family Medicine 09/23/19 documented as of this encounter
--- OUTSIDE RECORDS SUMMARY | 2024-05-04 13:10 | XMS_ITS | Encounter Summary ---
Author Organization [employer] [facility] Address [address] [place] [address] 7t [place] [address] Care Team Providers Care Charter Bus Driver Name Role Phone Sariah Vickers Primary Care Provider [phone] Reason for Visit * Reason Onset Date Comments Nurse Triage 11/01/2022 Encounter Details Date Type Department Care Team (Late st Contact Info) Description 11/01/2022 Telephone [facility] MEDICINE [address] [place] [address] Sariah Vickers ANP [address] [place] [address] Nurse Triage Social History Tobacco Use Types [...] 11/01/2022 3:51 PM EDT Triage call with [facility] [employer] Operations Manager ID [id number] Pt reports blood sugars have been high [...] AM EDT Clinical Support [facility] [address] [place] [address] Azeb Hall RN [address] [place] [address] 07/15/2024 1:00 PM EDT Office Visit [facility] [address] [place] [address] Sariah Vickers ANP [address] [place] [address] 08/04/2024 1:00 PM EDT Office Visit [facility] ADULT DENTAL [address] [place] [address] Nuvia Duarte [address] [place] [address] documented as of this encounter Goals Goal [...] on filedocumented in this encounter Care Teams Charter Bus Driver Relationship Specialty Start Date End Date Sariah Vickers ANP [address] [place] [address] PCP - General Family Medicine 09/23/19 documented as of this encounter
--- OUTSIDE RECORDS SUMMARY | 2024-05-04 13:10 | XMS_ITS | Encounter Summary ---
Author Organization [employer] Address 75 [facility] 7t [place] [address] Care Team Providers Care Switch Operators Supervisor Name Role Phone Sariah Vickers Primary Care Provider [phone] Reason for Visit * Reason Comments Med Refill Encounter Details Date Type Department Care Team ([facility] st Contact Info) Description 01/06/2024 Refill [facility] MED & PEDS [address] [place] [address] Sariah Vickers ANP [address] [place] [address] Cervicalgia Social History Tobacco Use Types Packs/Day [...] 07/02/2024 11:00 AM EDT Clinical Support [facility] MEDICINE [address] [place] [address] Azeb Hall RN [address] [place] [address] 07/15/2024 1:00 PM EDT Office Visit [facility] MEDICINE [address] [place] [address] Sariah Vickers ANP [address] [place] [address] 08/04/2024 1:00 PM EDT Office Visit [facility] ADULT DENTAL [address] [place] [address] Nuvia Duarte [address] [place] [address] documented as of this encounter Goals Goal [...] documented as of this encounter Care Teams Switch Operators Supervisor Relationship Specialty Start Date End Date Sariah Vickers ANP [address] [place] [address] PCP - General Family Medicine 09/23/19 documented as of this encounter
--- OUTSIDE RECORDS SUMMARY | 2024-05-04 13:10 | XMS_ITS | Encounter Summary ---
Author Organization [employer] Address 75 [facility] 7t [place] [address] Care Team Providers Care Roll Contour Grinder Name Role Phone Sariah Vickers Primary Care Provider [phone] Reason for Visit * Reason Comments Med Refill Encounter Details Date Type Department Care Team ([facility] st Contact Info) Description 11/26/2023 Refill [facility] MEDICINE [address] [place] [address] Sariah Vickers ANP [address] [place] [address] Vertigo Social History Tobacco Use Types Packs/Day [...] Description 07/02/2024 11:00 AM EDT Clinical Support [facility] MEDICINE [address] [place] [address] Azeb Hall RN 505 [place] [address] 07/15/2024 1:00 PM EDT Office Visit [facility] MEDICINE [address] [place] [address] Sariah Vickers ANP [address] [place] [address] 08/04/2024 1:00 PM EDT Office Visit [facility] ADULT DENTAL [address] [place] [address] Nuvia Duarte [address] [place] [address] documented as of this encounter Goals Goal [...] documented as of this encounter Care Teams Roll Contour Grinder Relationship Specialty Start Date End Date Sariah Vickers ANP [address] [place] [address] PCP - General Family Medicine 09/23/19 documented as of this encounter
--- OUTSIDE RECORDS SUMMARY | 2024-05-04 13:10 | XMS_ITS | Encounter Summary ---
Author Organization [employer] Address [address] [facility] 7t [place] [address] Care Team Providers Care Disc Inspector Name Role Phone Sariah Vickers Primary Care Provider [phone] Reason for Visit * Reason Comments Med Refill Encounter Details Date Type Department Care Team ([facility] st Contact Info) Description 05/02/2024 Refill [facility] MEDICINE 230 [place] [address] Sariah Vickers ANP 230 [place] [address] High cholesterol Social History Tobacco Use Types [...] Description 07/02/2024 11:00 AM EDT Clinical Support [facility] MEDICINE [address] [place] [address] Azeb Hall RN 505 [place] [address] 07/15/2024 1:00 PM EDT Office Visit [facility] MEDICINE [address] [place] [address] Sariah Vickers ANP 230 [place] [address] 08/04/2024 1:00 PM EDT Office Visit [facility] ADULT DENTAL [address] [place] [address] Nuvia Duarte 230 [place] [address] documented as of this encounter Goals Goal [...] cholesterol Pure hypercholesterolemia documented in this encounter Additional Health Concerns Assessment Noted Time PHQ-9 Depression Total Score: 12 024 2:58 PM EDT documented as of this encounter Care Teams Disc Inspector Relationship Specialty Start Date End Date Sariah Vickers ANP 230 [place] [address] PCP - General Family Medicine 09/23/19 documented as of this encounter
--- OUTSIDE RECORDS SUMMARY | 2024-05-04 13:10 | XMS_ITS | Encounter Summary ---
Author Organization [employer] Address [address] [place] [address] 7t [place] [address] Care Team Providers Care Torch Straightener And Heater Name Role Phone Sariah Vickers Primary Care Provider [phone] Reason for Visit * Reason Onset Date Comments Durable Medical Equipment 03/15/2022 Encounter Details Date Type Department Care Team (Late st Contact Info) Description 03/15/2022 Telephone [facility] MEDICINE 230 [place] [address] Sariah Vickers ANP 230 [place] [address] Durable Medical Equipment Social History Tobacco Use [...] EDT Clinical Support [facility] MEDICINE [address] [place] [address] Azeb Hall, RN 505 [place] [address] 07/15/2024 1:00 PM EDT Office Visit [facility] MEDICINE 230 [place] [address] Sariah Vickers ANP 230 [place] [address] 08/04/2024 1:00 PM EDT Office Visit [facility] ADULT DENTAL 230 [place] [address] Nuvia Duarte 230 [place] [address] documented as of this encounter Visit Diagnoses Not on filedocumented in this encounter Care Teams Torch Straightener And Heater Relationship Specialty Start Date End Date Sariah Vickers ANP [address] [place] [address] PCP - General Family Medicine 09/23/19 documented as of this encounter
--- OUTSIDE RECORDS SUMMARY | 2024-05-04 13:10 | XMS_ITS | Encounter Summary ---
Author Organization [employer] Address 75 [facility] 7t [place] [address] Care Team Providers Care Bicycle Fitter Name Role Phone Sariah Vickers Primary Care Provider [phone] Reason for Visit * Reason Comments Med Refill Encounter Details Date Type Department Care Team ([facility] st Contact Info) Description 03/09/2024 Refill [facility]C MED & PEDS [address] [place] [address] Sariah Vickers ANP 230 [place] [address] Neck pain Social History Tobacco Use Types [...] Description 07/02/2024 11:00 AM EDT Clinical Support [facility] MEDICINE [address] [place] [address] Azeb Hall RN 505 [place] [address] 07/15/2024 1:00 PM EDT Office Visit [facility] MEDICINE [address] [place] [address] Sariah Vickers ANP 230 [place] [address] 08/04/2024 1:00 PM EDT Office Visit [facility] ADULT DENTAL [address] [place] [address] Nuvia Duarte 230 [place] [address] documented as of this encounter Goals Goal [...] documented as of this encounter Care Teams Bicycle Fitter Relationship Specialty Start Date End Date Sariah Vickers ANP 230 [place] [address] PCP - General Family Medicine 09/23/19 documented as of this encounter
--- OUTSIDE RECORDS SUMMARY | 2024-05-04 13:10 | XMS_ITS | Encounter Summary ---
Author Organization [employer] Address 75 [facility] 7t [place] [address] Care Team Providers Care Wildlife Ecology Professor Name Role Phone Sariah Vickers Primary Care Provider [phone] Reason for Visit * Reason Onset Date Comments Med Refill 01/09/2024 Encounter Details Date Type Department Care Team ([facility] st Contact Info) Description 01/09/2024 Telephone [facility] MEDICINE 230 [place] [address] Sariah Vickers ANP 230 [place] [address] Med Refill Social History Tobacco Use Types [...] EDT Clinical Support [facility] MEDICINE [address] [place] [address] Azeb Hall, MARTIN 505 [place] [address] 07/15/2024 1:00 PM EDT Office Visit [facility] MEDICINE [address] [place] [address] Sariah Vickers ANP 230 [place] [address] 08/04/2024 1:00 PM EDT Office Visit [facility] ADULT DENTAL [address] [place] [address] Nuvia Duarte 230 [place] [address] documented as of this encounter Goals Goal [...] documented as of this encounter Care Teams Wildlife Ecology Professor Relationship Specialty Start Date End Date Sariah Vickers ANP 230 [place] [address] PCP - General Family Medicine 09/23/19 documented as of this encounter
--- OUTSIDE RECORDS SUMMARY | 2024-05-04 13:10 | XMS_ITS | Encounter Summary ---
Author Organization [employer] [facility] Address [address] [place] [address] 7t [place] [address] Care Team Providers Care Cotton Puller Name Role Phone Sariah Vickers Primary Care Provider [phone] Encounter Details Date Type Department Care Team (Latest Contact Info) Description 06/20/2021 Abstract [facility] CONVERSIONS Dental, Provider, DDS Social History [...] Description 07/02/2024 11:00 AM EDT Clinical Support [facility] MEDICINE [address] [place] [address] Azeb Hall RN 505 [place] [address] 07/15/2024 1:00 PM EDT Office Visit [facility] MEDICINE 230 [place] [address] Sariah Vickers ANP 230 [place] [address] 08/04/2024 1:00 PM EDT Office Visit [facility] ADULT DENTAL 230 [place] [address] Nuvia Duarte 230 [place] [address] documented as of this encounter Visit Diagnoses Not on filedocumented in this encounter Care Teams Cotton Puller Relationship Specialty Start Date End Date Sariah Vickers ANP 230 [place] [address] PCP - General Family Medicine 09/23/19 documented as of this encounter
--- OUTSIDE RECORDS SUMMARY | 2024-05-04 13:10 | XMS_ITS | Encounter Summary ---
Author Organization [employer] Address [address] [facility] 7t [place] [address] Care Team Providers Care Healthcare Recruiter Name Role Phone Sariah Vickers Primary Care Provider [phone] Reason for Visit * Reason Comments Med Refill Encounter Details Date Type Department Care Team ([facility] st Contact Info) Description 11/14/2023 Refill [facility] MEDICINE 230 [place] [address] Sariah Vickers ANP 230 [place] [address] Neck pain Social History Tobacco Use Types [...] Description 07/02/2024 11:00 AM EDT Clinical Support [facility] MEDICINE [address] [place] [address] Azeb Hall RN 505 [place] [address] 07/15/2024 1:00 PM EDT Office Visit [facility] MEDICINE [address] [place] [address] Sariah Vickers ANP 230 [place] [address] 08/04/2024 1:00 PM EDT Office Visit [facility] ADULT DENTAL [address] [place] [address] Nuvia Duarte 230 [place] [address] documented as of this encounter Goals Goal [...] documented as of this encounter Care Teams Healthcare Recruiter Relationship Specialty Start Date End Date Sariah Vickers ANP 230 [place] [address] PCP - General Family Medicine 09/23/19 documented as of this encounter
--- OUTSIDE RECORDS SUMMARY | 2024-05-04 13:10 | XMS_ITS | Encounter Summary ---
Author Organization [employer] [facility] Address [address] [place] [address] 7t [place] [address] Care Team Providers Care Pipe Coverer And Insulator Name Role Phone Sariah Vickers Primary Care Provider [phone] Reason for Visit * Reason Comments Med Refill Encounter Details Date Type Department Care Team (Late Contact Info) Description 03/26/2022 Refill [facility] MEDICINE [address] [place] [address] Sariah Vickers ANP 230 [place] [address] Social History Tobacco Use Types Packs/Day Years [...] Description 07/02/2024 11:00 AM EDT Clinical Support [facility] MEDICINE [address] [place] [address] Azeb Hall, RN 505 [place] [address] 07/15/2024 1:00 PM EDT Office Visit [facility] MEDICINE 230 [place] [address] Sariah Vickers ANP 230 [place] [address] 08/04/2024 1:00 PM EDT Office Visit [facility] ADULT DENTAL 230 [place], [place] [phone] Nuvia Duarte 230 [place] [address] documented as of this encounter Visit Diagnoses Not on filedocumented in this encounter Care Teams Pipe Coverer And Insulator Relationship Specialty Start Date End Date Sariah Vickers ANP 230 [place] [address] PCP - General Family Medicine 09/23/19 documented as of this encounter
--- OUTSIDE RECORDS SUMMARY | 2024-05-04 13:10 | XMS_ITS | Encounter Summary ---
Author Organization [employer] Address [address] [facility] 7t [place] [address] Care Team Providers Care Casino Floor Supervisor Name Role Phone Sariah Vickers Primary Care Provider [phone] Reason for Visit * Reason Comments Med Refill Encounter Details Date Type Department Care Team ([facility] st Contact Info) Description 12/17/2023 Refill [facility] MEDICINE 230 [place] [address] Sariah Vickers ANP 230 [place] [address] Chronic SI joint pain Social History Tobacco [...] 11:00 AM EDT Clinical Support [facility] MEDICINE [address] [place] [address] Azeb Hall RN 505 [place] [address] 07/15/2024 1:00 PM EDT Office Visit [facility] MEDICINE [address] [place] [address] Sariah Vickers ANP 230 [place] [address] 08/04/2024 1:00 PM EDT Office Visit [facility] ADULT DENTAL [address] [place] [address] Nuvia Duarte 230 [place] [address] documented as of this encounter Goals Goal [...] documented as of this encounter Care Teams Casino Floor Supervisor Relationship Specialty Start Date End Date Sariah Vickers ANP 230 [place] [address] PCP - General Family Medicine 09/23/19 documented as of this encounter
--- OUTSIDE RECORDS SUMMARY | 2024-05-04 13:10 | XMS_ITS | Encounter Summary ---
Author Organization [employer] Address 75 [facility] 7t [place] [address] Care Team Providers Care Kinder Teacher Name Role Phone Sariah Vickers Primary Care Provider [phone] Reason for Visit * Reason Comments Med Refill Encounter Details Date Type Department Care Team ([facility] st Contact Info) Description 01/04/2024 Refill [facility] CHC MED & PEDS [address] [place] [address] Sariah Vickers ANP 230 [place] [address] Cervicalgia Social History Tobacco Use Types Packs/Day [...] Description 07/02/2024 11:00 AM EDT Clinical Support [facility] MEDICINE [address] [place] [address] Azeb Hall RN 505 [place] [address] 07/15/2024 1:00 PM EDT Office Visit [facility] MEDICINE [address] [place] [address] Sariah Vickers ANP 230 [place] [address] 08/04/2024 1:00 PM EDT Office Visit [facility] ADULT DENTAL [address] [place] [address] Nuvia Duarte 230 [place] [address] documented as of this encounter Goals Goal [...] documented as of this encounter Care Teams Kinder Teacher Relationship Specialty Start Date End Date Sariah Vickers ANP 230 [place] [address] PCP - General Family Medicine 09/23/19 documented as of this encounter
--- OUTSIDE RECORDS SUMMARY | 2024-05-04 13:10 | XMS_ITS | Encounter Summary ---
Author Organization [employer] Address [address] [facility] 7t [place] [address] Care Team Providers Care Document Preparation Specialist Name Role Phone Sariah Vickers Primary Care Provider [phone] Reason for Visit * Reason Comments Med Refill Encounter Details Date Type Department Care Team ([facility] st Contact Info) Description 11/24/2023 Refill [facility] MEDICINE 230 [place] [address] Sariah Vickers ANP 230 [place] [address] Vertigo Social History Tobacco Use Types Packs/Day [...] 07/02/2024 11:00 AM EDT Clinical Support [facility] MEDICINE [address] [place] [address] Azeb Hall RN 505 [place] [address] 07/15/2024 1:00 PM EDT Office Visit [facility] MEDICINE [address] [place] [address] Sariah Vickers ANP 230 [place] [address] 08/04/2024 1:00 PM EDT Office Visit [facility] ADULT DENTAL [address] [place] [address] Nuvia Duarte 230 [place] [address] documented as of this encounter Goals Goal [...] documented as of this encounter Care Teams Document Preparation Specialist Relationship Specialty Start Date End Date Sariah Vickers ANP 230 [place] [address] PCP - General Family Medicine 09/23/19 documented as of this encounter
--- OUTSIDE RECORDS SUMMARY | 2024-05-04 13:10 | XMS_ITS | Encounter Summary ---
Author Organization [facility] Address [address] [place] [address] 7t [place] [address] Care Team Providers Care Sap Hana Architect Name Role Phone Sariah Vickers Primary Care Provider [phone] Encounter Details Date Type Department Care Team (Late st Contact Info) Description 01/09/2022 Abstract [facility] ADULT DENTAL 230 [place] [address] Dental, Provider, DDS Social History Tobacco Use [...] Description 07/02/2024 11:00 AM EDT Clinical Support [facility] MEDICINE [address] [place] [address] Azeb Hall RN 505 [place] [address] 07/15/2024 1:00 PM EDT Office Visit [facility] MEDICINE [address] [place] [address] Sariah Vickers ANP 230 [place] [address] 08/04/2024 1:00 PM EDT Office Visit [facility] ADULT DENTAL 230 [place] [address] Nuvia Duarte 230 [place] [address] documented as of this encounter Procedures Procedure [...] on filedocumented in this encounter Care Teams Sap Hana Architect Relationship Specialty Start Date End Date [facility]ariah Vikcers [facility] [place] [address] PCP - General Family Medicine 09/23/19 documented as of this encounter
--- OUTSIDE RECORDS SUMMARY | 2024-05-04 13:10 | XMS_ITS | Encounter Summary ---
Author Organization [employer] Address 75 [facility] 7t [place] [address] Care Team Providers Care Insecticide Supervisor Name Role Phone Sariah Vickers Primary Care Provider [phone] Reason for Visit * Reason Onset Date Comments Med Refill 09/18/2023 Encounter Details Date Type Department Care Team (Late st Contact Info) Description 09/18/2023 Telephone [facility] MEDICINE 230 [place] [address] Sariah Vickers ANP 230 [place] [address] Med Refill Social History Tobacco Use Types [...] refill : Tramadol To be sent to: [facility] - [place], [place] - [address] [place] [address] documented in this encounter Plan of Treatment Upcoming Encounters Date Type Department Care Team ([facility] st Contact Info) Description 07/02/2024 11:00 AM EDT Clinical Support [facility] MEDICINE [address] [place] [address] Azeb Hall RN 505 [place] [address] 07/15/2024 1:00 PM EDT Office Visit [facility] MEDICINE [address] [place] [address] Sariah Vickers ANP 230 [place] [address] 08/04/2024 1:00 PM EDT Office Visit [facility] ADULT DENTAL 230 [place] [address] Nuvia Duarte 230 [place] [address] documented as of this encounter Goals Goal Patient Goal Type Associated Problems Recent Progress Patient-Stated? Author Blood Pressure < 140/90 Blood Pressure 136/88(2024 11:28 AM EDT) No Aida Ragland PharmD Record Your Blood Sugar As Directed General No Aida Ragland PharmD Hemoglobin A1c < 7 Result Component 6.6( 4 8:44 AM EST) No Aida aRgland PharmD documented as of this encounter Visit Diagnoses Not on filedocumented in this encounter Additional Health Concerns Assessment Noted Time PHQ-9 Depression Total Score: 2 06/23/19 24 2:10 PM EDT documented as of this encounter Care Teams Insecticide Supervisor Relationship Specialty Start Date End Date Sariah Vickers ANP [address] [place] [address] PCP - General Family Medicine 09/23/19 documented as of this encounter
--- OUTSIDE RECORDS SUMMARY | 2024-05-04 13:10 | XMS_ITS | Encounter Summary ---
Author Organization [employer] Address [address] [facility] [address] 7t [place] [address] Care Team Providers Care Rental Sales Representative Name Role Phone Sariah Vickers Primary Care Provider [phone] Reason for Visit * Reason Comments Med Refill Patient walked [facility] pharmacy hasn't finished her Medbox due to missing refill for medication Gabapetin . Encounter Details Date Type Department Care Team ([facility] st Contact Info) Description 10/03/2023 Refill [facility] 230 [place], [place] [phone] Sariah Vickers ANP 230 [place] [address] Chronic SI joint pain Social History Tobacco [...] 07/02/2024 11:00 AM EDT Clinical Support [facility] MEDICINE [address] [place] [address] Azeb Hall RN 505 [place] [address] 07/15/2024 1:00 PM EDT Office Visit [facility] MEDICINE [address] [place] [address] Sariah Vickers ANP 230 [place] [address] 08/04/2024 1:00 PM EDT Office Visit [facility] ADULT DENTAL 230 [place] [address] Nuvia Duarte 230 [place] [address] documented as of this encounter Goals Goal [...] documented as of this encounter Care Teams Rental Sales Representative Relationship Specialty Start Date End Date Sariah Vickers ANP [address] [place] [address] PCP - General Family Medicine 09/23/19 documented as of this encounter
--- OUTSIDE RECORDS SUMMARY | 2024-05-04 13:10 | XMS_ITS | Encounter Summary ---
Author Organization [employer] [facility] Address [address] [place] [address] 7t [place] [address] Care Team Providers Care Sawing And Assembly Supervisor Name Role Phone Sariah Vickers Primary Care Provider [phone] Reason for Visit * Reason Comments Med Refill Encounter Details Date Type Department Care Team (Late Contact Info) Description 02/06/2022 Refill [facility] MEDICINE [address] [place] [address] Sariah Vickers ANP 230 [place] [address] Social History Tobacco Use Types Packs/Day Years [...] 11:00 AM EDT Clinical Support [facility] MEDICINE [address] [place] [address] Azeb Hall, RN 505 [place] [address] 07/15/2024 1:00 PM EDT Office Visit [facility] MEDICINE 230 [place] [address] Sariah Vickers ANP 230 [place] [address] 08/04/2024 1:00 PM EDT Office Visit [facility] ADULT DENTAL 230 [place], [place] [phone] Nuvia Duarte 230 [place] [address] documented as of this encounter Visit Diagnoses Not on filedocumented in this encounter Care Teams Sawing And Assembly Supervisor Relationship Specialty Start Date End Date Sariah Vickers ANP 230 [place] [address] PCP - General Family Medicine 09/23/19 documented as of this encounter
--- OUTSIDE RECORDS SUMMARY | 2024-05-04 13:10 | XMS_ITS | Encounter Summary ---
Author Organization [employer] Address 75 [facility] 7t [place] [address] Care Team Providers Care Milk Driver Name Role Phone Sariah Vickers Primary Care Provider [phone] Reason for Visit * Reason Comments Med Refill Encounter Details Date Type Department Care Team ([facility] st Contact Info) Description 10/17/2023 Refill [facility] MEDICINE 230 [place] [address] Sariah Vickers ANP 230 [place] [address] Neck pain Social History Tobacco Use Types [...] 11:00 AM EDT Clinical Support [facility] MEDICINE [address] [place] [address] Azeb Hall RN 505 [place] [address] 07/15/2024 1:00 PM EDT Office Visit [facility] MEDICINE [address] [place] [address] Sariah Vickers ANP 230 [place] [address] 08/04/2024 1:00 PM EDT Office Visit [facility] ADULT DENTAL [address] [place] [address] Nuvia Duarte 230 [place] [address] documented as of this encounter Goals Goal [...] documented as of this encounter Care Teams Milk Driver Relationship Specialty Start Date End Date Sariah Vickers ANP 230 [place] [address] PCP - General Family Medicine 09/23/19 documented as of this encounter
--- OUTSIDE RECORDS SUMMARY | 2024-05-04 13:10 | XMS_ITS | Encounter Summary ---
Author Organization [employer] Address [address] [facility] [address] 7t [place] [address] Care Team Providers Care Transactional Paralegal Name Role Phone Sariah Vickers Primary Care Provider [phone] Reason for Visit * Reason Comments Med Refill Encounter Details Date Type Department Care Team ([facility] st Contact Info) Description 10/03/2023 Refill [facility] 230 [place] [address] Sariah Vickers ANP 230 [place] [address] Chronic SI joint pain Social History Tobacco [...] Description 07/02/2024 11:00 AM EDT Clinical Support [facility] MEDICINE [address] [place] [address] Azeb Hall RN 505 [place] [address] 07/15/2024 1:00 PM EDT Office Visit [facility] MEDICINE [address] [place] [address] Sariah Vickers ANP 230 [place] [address] 08/04/2024 1:00 PM EDT Office Visit [facility] ADULT DENTAL [address] [place] [address] Nuvia Duarte 230 [place] [address] documented as of this encounter Goals Goal [...] documented as of this encounter Care Teams Transactional Paralegal Relationship Specialty Start Date End Date Sariah Vickers ANP 230 [place] [address] PCP - General Family Medicine 09/23/19 documented as of this encounter
--- OUTSIDE RECORDS SUMMARY | 2024-05-04 13:10 | XMS_ITS | Encounter Summary ---
Author Organization [employer] [facility] Address [address] [place] [address] 7t [place] [address] Care Team Providers Care Digital Asset Specialist Name Role Phone Sariah Vickers Primary Care Provider [phone] Reason for Visit * Reason Comments Med Refill Encounter Details Date Type Department Care Team (Late st Contact Info) Description 03/03/2022 Refill [facility] MEDICINE [address] [place] [address] Sariah Vickers ANP 230 [place] [address] Social History Tobacco Use Types Packs/Day Years [...] Description 07/02/2024 11:00 AM EDT Clinical Support [facility] MEDICINE [address] [place] [address] Azeb Hall, RN 505 [place] [address] 07/15/2024 1:00 PM EDT Office Visit [facility] MEDICINE [address] [place] [address] Sariah Vickers ANP [address] [place] [address] 08/04/2024 1:00 PM EDT Office Visit [facility] ADULT DENTAL [address] [place] [address] Nuvia Duarte [address] [place] [address] documented as of this encounter Visit Diagnoses Not on filedocumented in this encounter Care Teams Digital Asset Specialist Relationship Specialty Start Date End Date Sariah Vickers ANP [address] [place] [address] PCP - General Family Medicine 09/23/19 documented as of this encounter
--- OUTSIDE RECORDS SUMMARY | 2024-05-04 13:10 | XMS_ITS | Encounter Summary ---
Author Organization [employer] Address 75 [facility] 7t [place] [address] Care Team Providers Care Mechanical Striper Name Role Phone Sariah Vickers Primary Care Provider [phone] Reason for Visit * Reason Onset Date Comments Med Refill 02/04/2024 Encounter Details Date Type Department Care Team ([facility] st Contact Info) Description 02/04/2024 Telephone [facility] MEDICINE 230 [place] [address] Sariah Vickers ANP 230 [place] [address] Med Refill Social History Tobacco Use Types [...] encounter Miscellaneous Notes * Telephone Encounter - Bals Wallace - 02/04/2024 1:07 PM EST TC from pt requesting medication refill. Medications needing refill: traMADol (Ultram) 50 MG tablet To be sent to: [facility] - [place], [place] - [address] [place] [address] documented in this encounter Plan of Treatment Upcoming Encounters Date Type Department Care Team (Late st Contact Info) Description 07/02/2024 11:00 AM EDT Clinical Support [facility] MEDICINE [address] [place] [address] Azeb Hall RN 505 [place] [address] 07/15/2024 1:00 PM EDT Office Visit [facility] MEDICINE [address] [place] [address] Sariah Vickers ANP 230 [place] [address] 08/04/2024 1:00 PM EDT Office Visit [facility] ADULT DENTAL [address] [place] [address] Nuvia Duarte 230 [place] [address] documented as of this encounter Goals Goal [...] as of this encounter Care Teams Mechanical Striper Relationship Specialty Start Date End Date Sariah Vickers ANP [address] [place] [address] PCP - General Family Medicine 09/23/19 documented as of this encounter
--- OUTSIDE RECORDS SUMMARY | 2024-05-04 13:10 | XMS_ITS | Encounter Summary ---
Author Organization [employer] [facility] Address 75 [facility] 7t [place] [address] Care Team Providers Care Predatory Animal Hunter Name Role Phone Sariah Vickers Primary Care Provider [phone] Encounter Details Date Type Department Care Team ([facility] Contact Info) Description 02/05/2022 Abstract [facility] MEDICINE [address] [place] [address] Sariah Vickers ANP 230 [place] [address] Social History Tobacco Use Types Packs/Day Years [...] Description 07/02/2024 11:00 AM EDT Clinical Support [facility] MEDICINE [address] [place] [address] Azeb Hall, RN 505 [place] [address] 07/15/2024 1:00 PM EDT Office Visit [facility] MEDICINE [address] [place] [address] Sariah Vickers ANP 230 [place] [address] 08/04/2024 1:00 PM EDT Office Visit [facility] ADULT DENTAL [address] [place] [address] Nuvia Duarte 230 [place] [address] documented as of this encounter Visit Diagnoses Not on filedocumented in this encounter Care Teams Predatory Animal Hunter Relationship Specialty Start Date End Date Sariah Vickers ANP [address] [place] [address] PCP - General Family Medicine 09/23/19 documented as of this encounter
--- OUTSIDE RECORDS SUMMARY | 2024-05-04 13:10 | XMS_ITS | Encounter Summary ---
Author Organization [employer] Address 75 [facility] 7t [place] [address] Care Team Providers Care City Collector Name Role Phone Sariah Vickers Primary Care Provider [phone] Reason for Visit * Reason Comments Med Refill Encounter Details Date Type Department Care Team ([facility] st Contact Info) Description 01/06/2024 Refill [facility] CHC MED & PEDS [address] [place] [address] Sariah Vickers ANP 230 [place] [address] Cervicalgia Social History Tobacco Use Types Packs/Day [...] 11:00 AM EDT Clinical Support [facility] MEDICINE [address] [place] [address] Azeb Hall RN 505 [place] [address] 07/15/2024 1:00 PM EDT Office Visit [facility] MEDICINE [address] [place] [address] Sariah Vickers ANP 230 [place] [address] 08/04/2024 1:00 PM EDT Office Visit [facility] ADULT DENTAL [address] [place] [address] Nuvia Duarte 230 [place] [address] documented as of this encounter Goals Goal [...] documented as of this encounter Care Teams City Collector Relationship Specialty Start Date End Date Sariah Vickers ANP 230 [place] [address] PCP - General Family Medicine 09/23/19 documented as of this encounter
--- OUTSIDE RECORDS SUMMARY | 2024-05-04 13:10 | XMS_ITS | Encounter Summary ---
Author Organization [employer] Address [address] [facility] [address] 7t [place] [address] Care Team Providers Care Poured Concrete Wall Technician Name Role Phone Sariah Vickers Primary Care Provider [phone] Reason for Visit * Reason Comments Med Refill Encounter Details Date Type Department Care Team ([facility] st Contact Info) Description 10/03/2023 Refill [facility] WALK-IN CENTER 230 [place] [address] Sariah Vickers ANP 230 [place] [address] Chronic SI joint pain Social History Tobacco [...] Description 07/02/2024 11:00 AM EDT Clinical Support [facility] MEDICINE [address] [place] [address] Azeb Hall RN 505 [place] [address] 07/15/2024 1:00 PM EDT Office Visit [facility] MEDICINE [address] [place] [address] Sariah Vickers ANP 230 [place] [address] 08/04/2024 1:00 PM EDT Office Visit [facility] ADULT DENTAL [address] [place] [address] Nuvia Duatre 230 [place] [address] documented as of this encounter Goals Goal [...] documented as of this encounter Care Teams Poured Concrete Wall Technician Relationship Specialty Start Date End Date Sariah Vickers ANP 230 [place] [address] PCP - General Family Medicine 09/23/19 documented as of this encounter
--- OUTSIDE RECORDS SUMMARY | 2024-05-04 13:11 | XMS_ITS | Encounter Summary ---
Author Organization [employer] Address 75 [facility] 7t [place] [address] Care Team Providers Care Desk Top Publisher Name Role Phone Sariah Vickers Primary Care Provider [phone] Reason for Visit * Reason Onset Date Comments Chart Prep 04/12/2024 Encounter Details Date Type Department Care Team ([facility] st Contact Info) Description 04/12/2024 Telephone [facility] MEDICINE 230 [place] [address] Sariah Vickers ANP 230 [place] [address] Chart Prep Social History Tobacco Use Types [...] 11:00 AM EDT Clinical Support [facility] MEDICINE [address] [place] [address] Azeb Hall RN 505 [place] [address] 07/15/2024 1:00 PM EDT Office Visit [facility] MEDICINE [address] [place] [address] Sariah Vickers ANP 230 [place] [address] 08/04/2024 1:00 PM EDT Office Visit [facility] ADULT DENTAL 230 [place] [address] Nuvia Duarte 230 [place] [address] documented as of this encounter Goals Goal [...] documented as of this encounter Care Teams Desk Top Publisher Relationship Specialty Start Date End Date Sariah Vickers ANP [address] [place] [address] PCP - General Family Medicine 09/23/19 documented as of this encounter
--- OUTSIDE RECORDS SUMMARY | 2024-05-04 13:11 | XMS_ITS | Encounter Summary ---
Author Organization [employer] Address 75 [facility] 7t [place] [address] Care Team Providers Care Granite Cutter Apprentice Name Role Phone Anthony Ruiz Primary Care Provider [phone] Encounter Details Date Type Department Care Team (Late st Contact Info) Description 04/12/2024 Orders Only [facility] External Provider, [facility] Social History Tobacco Use Types Packs/Day [...] Support [facility] MEDICINE 230 [place] [address] Azeb Hall, MARTIN 505 [place] [address] 07/15/2024 1:00 PM EDT Office Visit [facility] MEDICINE 230 [place] [address] Anthony Ruiz ANP 230 [place] [address] 08/04/2024 1:00 PM EDT Office Visit [facility] ADULT DENTAL 230 [place] [address] Nuvia Duarte 230 [place] [address] documented as of this encounter Goals Goal [...] EST Narrative 04/17/2024 12:38 PM EST ? [facility] ? [address] ?[place] [address] ? Mammography Report ? Signed ? Patient: Avinash Ho,Nuvia E ?MR ?? #: [id number] ? : 1960 ?Acct:[id number] ? Age/Sex: 63 / F ?ADM Date: 04/12/24 ? Loc: HO.MAMMO ? Attending Dr: Monica Lozano CNM ? Ordering Physician: Monica Lozano CNEstefania ?Results: 2Beni ?? gn Findings ? Date of Service: 04/12/24 ?Follow Up: 1 Year From Orig ?? inal Mammogram ? Procedure(s): MM tomosynthesis screening BI ?? Accession Number(s): [id number] ? cc: Monica Lozano CNM; ANTHONY RUIZ [...] DD/ 1348 ? TD/TT: 04/12/24 1405 ? Er Registrar: ? Procedure Note Otoniel, Image - 04/17/2024 [facility] [address] [place], [place] [address] Mammography Report Signed Patient: Nuvia Fay EMR #: [id number] : 1Acct:[id number] Age/Sex: 63 / FADM Date: 04/12/24 Loc: HO.MAMMO Attending Dr: Monica Lozano CNM Ordering Physician: Monica Lozanoesults: 2Beni gn Findings Date of Service: 04/12/24Follow Up: 1 Year From Orig inal Mammogram Procedure(s): MM tomosynthesis screening BI Accession Number(s): [id number] cc: Monica Lozano CNM; ANTHONY RUIZ NP [...] by: Cherrie Roberts DO 04/17/2024 12:35 PM [facility] Dictated By: Cherrie Roberts DO Signed By: <Electronically signed by Cherrie Roberts DO in OV> 04/17/24 1235 DD/ 1348 TD/TT: 04/12/24 1405 Er Registrar: [facility] External Provider IMG BI PROCEDURES Edited Result - Final documented in this encounter Visit Diagnoses Not on filedocumented in this encounter Additional Health Concerns Assessment Noted Time PHQ-9 Depression Total Score: 12 09/30/ 024 2:58 PM EDT documented as of this encounter Care Teams Granite Cutter Apprentice Relationship Specialty Start Date End Date Anthony Ruiz ANP [address] [place] [address] PCP - General Family Medicine 09/23/19 documented as of this encounter
--- OUTSIDE RECORDS SUMMARY | 2024-05-04 13:11 | XMS_ITS | Encounter Summary ---
Author Organization [employer] Address [address] [facility] [address] 7t [place] [address] Care Team Providers Care Escalator Attendant Name Role Phone Sariah Vickers Primary Care Provider [phone] Encounter Details Date Type Department Care Team (Late st Contact Info) Description 04/20/2024 Orders Only [facility] WALK[facility]IN [facility] 230 [place], [place] [phone] Chava Presley MD [address] [place], [place] [phone] Social History Tobacco Use Types Packs/Day Years [...] Description 07/02/2024 11:00 AM EDT Clinical Support [facility] MEDICINE [address] [place] [address] Azeb Hall, MARTIN 505 [place] [address] 07/15/2024 1:00 PM EDT Office Visit [facility] MEDICINE [address] [place] [address] Sariah Vickers ANP 230 [place] [address] 08/04/2024 1:00 PM EDT Office Visit [facility] ADULT DENTAL [address] [place] [address] Nuvia Duarte 230 [place] [address] documented as of this encounter Goals Goal [...] EST) D Dimer High Sensitivity 218 NG/ML [facility] Comment:D-DIMER HS REFERENCE RANGENote: Our assay [...] MD LAB BLOOD ORDERABLES Final Resul t [facility] [address] [place] [address] [phone] documented in this encounter Visit Diagnoses Not on filedocumented in this encounter Additional Health Concerns Assessment Noted Time PHQ-9 Depression Total Score: 12 024 2:58 PM EDT documented as of this encounter Care Teams Escalator Attendant Relationship Specialty Start Date End Date Sariah Vickers ANP [address] [place] [address] PCP - General Family Medicine 09/23/19 documented as of this encounter
--- OUTSIDE RECORDS SUMMARY | 2024-05-04 13:11 | XMS_ITS | Encounter Summary ---
Author Organization [facility] [employer] [facility] Address 75 [facility] 7t [place] [address] Care Team Providers Care Mortgage Funder Name Role Phone Sariah Vickers Primary Care Provider [phone] Reason for Visit * Reason Onset Date Comments Nurse Triage 04/06/2024 Encounter Details Date Type Department Care Team ([facility] st Contact Info) Description 04/06/2024 Telephone [facility] MEDICINE [address] [place] [address] Sariah Vickers ANP 230 [place] [address] Nurse Triage Social History Tobacco Use Types [...] by Endo and refer to CDTM with [facility] pharmacist to continue DM management instead of Endo. Pt missed first appt in March. R/s for April, pt has upcoming appt with PCP. PCP out of office this week. Pt advised to follow up with Endo or to seek [facility] for evaluation of sx this week .Reviewed [facility] operating hours and that wait [...] requesting Ozempic The caller accepted this outcome. SAMOAN SPEAKER documented in this encounter Plan of Treatment Upcoming Encounters Date Type Department Care Team (Late st Contact Info) Description 07/02/2024 11:00 AM EDT Clinical Support [facility] MEDICINE [address] [place] [address] Azeb Hall RN 505 [place] [address] 07/15/2024 1:00 PM EDT Office Visit [facility] MEDICINE [address] [place] [address] Sariah Vickers ANP 230 [place] [address] 08/04/2024 1:00 PM EDT Office Visit [facility] ADULT DENTAL [address] [place] [address] Nuvia Duarte [address] [place] [address] documented as of this encounter Goals Goal [...] documented as of this encounter Care Teams Mortgage Funder Relationship Specialty Start Date End Date Sariah Vickers ANP [address] [place] [address] PCP - General Family Medicine 09/23/19 documented as of this encounter
--- OUTSIDE RECORDS SUMMARY | 2024-05-04 13:11 | XMS_ITS | Encounter Summary ---
Author Organization [employer] Address 75 [facility] 7t [place] [address] Care Team Providers Care Document Management Consultant Name Role Phone Sariah Vickers Primary Care Provider [phone] Reason for Visit * Reason Comments Med Refill Encounter Details Date Type Department Care Team ([facility] st Contact Info) Description 02/28/2023 Refill [facility] MEDICINE 230 [place] [address] Sariah Vickers ANP 230 [place] [address] Cervicalgia Social History Tobacco Use Types Packs/Day [...] Description 07/02/2024 11:00 AM EDT Clinical Support [facility] MEDICINE [address] [place] [address] Azeb Hall RN 505 [place] [address] 07/15/2024 1:00 PM EDT Office Visit [facility] MEDICINE [address] [place] [address] Sariah Vickers ANP 230 [place] [address] 08/04/2024 1:00 PM EDT Office Visit [facility] ADULT DENTAL [address] [place] [address] Felicia, Nuvia 230 [place] [address] documented as of this encounter Goals Goal [...] Cervicalgia documented in this encounter Care Teams Document Management Consultant Relationship Specialty Start Date End Date Sariah Vickers ANP [address] [place] [address] PCP - General Family Medicine 09/23/19 documented as of this encounter
--- OUTSIDE RECORDS SUMMARY | 2024-05-04 13:11 | XMS_ITS | Clinical Summary ---
Author Organization [facility] Address [address] [place] [address] Phone Care Team Providers Care Tool Hardener Name Role Phone Sariah Vickers NP Primary Care Provider [phone] Social History Tobacco Use Types Packs/Day Years [...] age to complete this topic Care Teams Tool Hardener Relationship Specialty Start Date End Date Sariah Vickers NP [address] [place] [phone] PCP - General 12/03/23
--- OUTSIDE RECORDS SUMMARY | 2024-05-04 13:11 | XMS_ITS | Encounter Summary ---
Author Organization [email or web address] [facility] Address 75 [facility] 7t [place] [address] Care Team Providers Care Garnett Fixer Name Role Phone Sariah Vickers Primary Care Provider [phone] Reason for Visit * Reason Onset Date Comments Referral 05/17/2022 Encounter Details Date Type Department Care Team ([facility] st Contact Info) Description 05/17/2022 Telephone [facility] MEDIC[facility] 230 [place] [address] Sariah Vickers ANP 230 [place] [address] Referral Social History Tobacco Use Types Packs/Day [...] guide to vertigo. Please contact pt at [phone] documented in this encounter Plan of Treatment Upcoming Encounters Date Type Department Care Team ([facility] st Contact Info) Description 07/02/2024 11:00 AM EDT Clinical Support [facility] MEDICINE [address] [place] [address] Azeb Hall, MARTIN 505 [place] [address] 07/15/2024 1:00 PM EDT Office Visit [facility] MEDICINE [address] [place] [address] Sariah Vickers ANP 230 [place] [address] 08/04/2024 1:00 PM EDT Office Visit [facility] ADULT DENTAL 230 [place] [address] Nuvia Duarte 230 [place] [address] documented as of this encounter Visit Diagnoses Not on filedocumented in this encounter Care Teams Garnett Fixer Relationship Specialty Start Date End Date Sariah Vickers ANP [address] [place] [address] PCP - General Family Medicine 09/23/19 documented as of this encounter
--- OUTSIDE RECORDS SUMMARY | 2024-05-04 13:11 | XMS_ITS | Encounter Summary ---
Author Organization [employer] Address 75 [facility] 7t [place] [address] Care Team Providers Care Soda Dialyzer Name Role Phone Anthony Ruiz Primary Care Provider [phone] Reason for Visit * Reason Comments lung pain Shortness of Breath Encounter Details Date Type Department Care Team ([facility] st Contact Info) Description 04/20/2024 11:00 AM EST Office Visit [facility] WALK-IN CENTER 230 [place] [address] Chava Presley MD 230 [place] [address] Posterior chest pain (Primary Dx); Asthma-COPD overlap [...] Nuvia Ho is a 63 y.o. female. 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 HPI Nuvia had onset 6-7 days ago of knife-like and pressure pain in right posterior chest, worse with inspiration, movements of torso and right UE. Has associated SOB. Has associated cough, wheezing at night, occasional chills. No fever or hemoptysis. Had neg rapid covid and flu tests at [facility] 04/15/2024. Tylenol helps a little. Using Duoneb, Singulair, Fluticasone-Salmeterol 250-50 MCG/ACT aerosol powder Followed by [employer] 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 Dr. Preciado at [facility]. Lives with son. Former smoker. Not employed. [...] Description 07/02/2024 11:00 AM EDT Clinical Support [facility] MEDICINE [address] [place] [address] Azeb Hall RN 505 [place] [address] 07/15/2024 1:00 PM EDT Office Visit [facility] MEDICINE [address] [place] [address] Anthony Ruiz ANP [address] [place] [address] 08/04/2024 1:00 PM EDT Office Visit [facility] ADULT DENTAL 230 [place] [address] Nuvia Duarte [address] [place] [address] Scheduled Orders Name Type Priority Associated Diagnoses [...] EST Narrative 04/21/2024 9:57 AM EST ? [facility] ?[address] ?[place] [address] ?XRay Report ? Signed ? Patient: Nuvia Fay ?MR ?? #: [id number] ? : 1960 ?Acct:[id number] ? Age/Sex: 63 / F ?ADM Date: 04/20/24 ? Loc: HO.XRAY ? Attending Dr: Chava Presley MD ? Ordering Physician: CHAVA PRESLEY MD ?? Date of Service: 04/20/24 ?? Procedure(s): XR chest 2V ?? Accession Number(s): [id number] ? cc: CHAVA PRESLEY MD; ANTHONY RUIZ [...] DD/ 1305 ? TD/TT: 04/20/24 1310 ? Bar Assistant: NANCY ? Procedure Note Dontam, Vinicius - 04/21/[address] [address] XRay Report Signed Patient: Nuvia Fay EMR #: [id number] : 1960cct:[id number] Age/Sex: 63 / FADM Date: 04/20/24 Loc: [facility] Attending Dr: Chava Presley MD Ordering Physician: CHAVA PRESLEY MD Date of Service: 04/20/24 Procedure(s): XR chest 2V Accession Number(s): [id number] cc: CHAVA PRESLEY MD; ANTHONY RUIZ NP [...] 04/21/24 0954 DD/ 1305 TD/TT: 04/20/24 1310 Bar Assistant: NANCY Chava Presley MD IMG XR PROCEDURES Edited Result - Final documented in this encounter Visit Diagnoses Diagnosis Posterior chest pain- Primary Asthma-COPD overlap syndrome (CMS/HCC) Neck pain Cervicalgia documented in this encounter Additional Health Concerns Assessment Noted Time PHQ-9 Depression Total Score: 12 09/30/2 024 2:58 PM EDT documented as of this encounter Care Teams Soda Dialyzer Relationship Specialty Start Date End Date Anthony Ruiz ANP [address] [place] [address] PCP - General Family Medicine 09/23/19 documented as of this encounter
--- OUTSIDE RECORDS SUMMARY | 2024-05-04 13:11 | XMS_ITS | Encounter Summary ---
Author Organization [employer] Address [address] [facility] [address] 7t [place] [address] Care Team Providers Care Hasher Operator Name Role Phone Sariah Vickers Primary Care Provider [phone] Reason for Visit * Reason Comments controlled substance treatment Encounter Details Date Type Department Care Team (Latest Contact Info) Description 04/23/2024 11:30 AM EST Clinical Support [facility]ICINE [address] [place] [address] Azeb Hall RN 505 [place], [place] [phone] Long-term current use of opiate analgesic Social [...] 11:30 AM EST S: Pt here for SPRAYER AUTOMATIC SPRAY MACHINE RV. DAYA Hernandez interpreting. Prescribed Tramadol 50mg PO q12h PRN. Patient 2 pills short at todays visit. States has been in a lot of pain this month and took extra pills. Reminded ptof the SPRAYER AUTOMATIC SPRAY MACHINE Agreement rules and to take med only as prescribed, pt verbalized understanding. PCP notified. BZO from an outside provider. Pt denies nicotine/ETOH/street drug/marijuana. Currently rates pain a 8/10 and states medication is usually 100% effective at alleviating pain when taken. Chronic pain group pamphlet given, patient not interested at this time. No other questions/ concerns at thistime. O: POLYETHYLENE COMBINER verified today. POLYETHYLENE COMBINER checked 04/23/24. Pill count performed. Pt has 15 pills at this time, 17 expected. (See above). UTOX (-) all tested substances, as expected. A: SPRAYER AUTOMATIC SPRAY MACHINE Contract Revisit: Opioid dependence related to chronic pain. P: Patient to continue taking medication only as prescribed; Next SPRAYER AUTOMATIC SPRAY MACHINE RV appointment scheduled for 07/02/24 @ 11a @[facility]. F/u with PCP 07/15/24. F/U sooner PRN. Appointment reminder given. Patient verbalized understanding and agreed to plan. documented in this encounter Plan of Treatment Upcoming Encounters Date Type Department Care Team (Late st Contact Info) Description 07/02/2024 11:00 AM EDT Clinical Support [facility] [address] [place] [address] Azeb Hall RN 505 [place] [address] 07/15/2024 1:00 PM EDT Office Visit [facility] [address] [place] [address] Sariah Vickers ANP 230 [place] [address] 08/04/2024 1:00 PM EDT Office Visit [facility] [address] [place] [address] Nuiva Duarte [address] [place] [address] documented as of this encounter Goals Goal [...] - 04/23/2024 10:56 AM EST .UTOX cup Lot#[id number] Exp. 10/06/25 Internal Pass Control negative AMP, [...] documented as of this encounter Care Teams Hasher Operator Relationship Specialty Start Date End Date Sariah Vickers, KAYLEE [address] [place] [address] PCP - General Family Medicine 09/23/19 documented as of this encounter
--- OUTSIDE RECORDS SUMMARY | 2024-05-04 13:11 | XMS_ITS | Encounter Summary ---
Author Organization [employer] Address 75 [facility] 7t [place] [address] Care Team Providers Care Sexual Assault Counselor Name Role Phone Sariah Vickers Primary Care Provider [phone] Reason for Visit * Reason Comments Med Refill Encounter Details Date Type Department Care Team ([facility] st Contact Info) Description 04/26/2024 Refill [facility] [address] [place] [address] Sariah Vickers ANP 230 [place] [address] Cervicalgia Social History Tobacco Use Types Packs/Day [...] AM EDT Clinical Support [facility] [address] [place] [address] Azeb Hall RN 505 [place] [address] 07/15/2024 1:00 PM EDT Office Visit [facility] [address] [place] [address] Sariah Vickers ANP 230 [place] [address] 08/04/2024 1:00 PM EDT Office Visit [facility] ADULT DENTAL [address] [place] [address] Nuvia Duarte 230 [place] [address] documented as of this encounter Goals Goal [...] documented as of this encounter Care Teams Sexual Assault Counselor Relationship Specialty Start Date End Date Sariah Vickers ANP 230 [place] [address] PCP - General Family Medicine 09/23/19 documented as of this encounter
--- OUTSIDE RECORDS SUMMARY | 2024-05-04 13:11 | XMS_ITS | Encounter Summary ---
Author Organization [employer] [facility] Address 75 [facility] 7t [place] [address] Care Team Providers Care Screen Making Technician Name Role Phone Sariah Vickers Primary Care Provider [phone] Reason for Visit * Reason Onset Date Comments Referral 04/29/2024 Encounter Details Date Type Department Care Team ([facility] st Contact Info) Description 04/29/2024 Telephone [facility] [address] [place] [address] Sariah Vickers ANP 230 [place] [address] Referral Social History Tobacco Use Types Packs/Day [...] said she gets allergy injections from her android platform developer at [facility]. Patient was advised android platform developer will be out of practice as of 09/2024. Patient wants new referral to different android platform developer. documented in this encounter Plan of Treatment Upcoming Encounters Date Type Department Care Team (Late st Contact Info) Description 07/02/2024 11:00 AM EDT Clinical Support [facility] [address] [place] [address] Azeb Hall, MARTIN 505 [place] [address] 07/15/2024 1:00 PM EDT Office Visit [facility] [address] [place] [address] Sariah Vickers ANP 230 [place] [address] 08/04/2024 1:00 PM EDT Office Visit [facility] ADULT DENTAL [address] [place] [address] Nuvia Duarte [address] [place] [address] documented as of this encounter Goals Goal [...] documented as of this encounter Care Teams Screen Making Technician Relationship Specialty Start Date End Date Sariah Vickers ANP [address] [place] [address] PCP - General Family Medicine 09/23/19 documented as of this encounter
--- OUTSIDE RECORDS SUMMARY | 2024-05-04 13:11 | XMS_ITS | Encounter Summary ---
Author Organization [employer] Address 75 [facility] 7t [place] [address] Care Team Providers Care Handstitching Machine Armhole Feller Name Role Phone Sariah Vickers Primary Care [...] AM EDT Clinical Support [facility] [address] [place] [address] Azeb Hall, MARTIN 505 [place] [address] 07/15/2024 1:00 PM EDT Office Visit [facility] [address] [place] [address] Sariah Vickers ANP 230 [place] [address] 08/04/2024 1:00 PM EDT Office Visit [facility] ADULT DENTAL 230 [place] [address] Nuvia Duarte 230 [place] [address] documented as of this encounter Goals Goal [...] documented as of this encounter Care Teams Handstitching Machine Armhole Feller Relationship Specialty Start Date End Date Sariah Vickers ANP [address] [place] [address] PCP - General Family Medicine 09/23/19 documented as of this encounter
--- OUTSIDE RECORDS SUMMARY | 2024-05-04 13:11 | XMS_ITS | Encounter Summary ---
Author Organization [employer] Address 75 [facility] 7t [place] [address] Care Team Providers Care Tile Molder Name Role Phone Sariah Vickers Primary Care Provider [phone] Reason for Visit * Reason Comments Med Refill Encounter Details Date Type Department Care Team ([facility] st Contact Info) Description 03/04/2023 Refill [facility] 230 [place], [place] [phone] Brittney Nava MD 230 [place] [address] Social History Tobacco Use Types Packs/Day Years [...] AM EDT Clinical Support [facility] [address] [place] [address] Azeb Hall RN 505 [place] [address] 07/15/2024 1:00 PM EDT Office Visit [facility] [address] [place] [address] Sariah Vickers ANP [address] [place] [address] 08/04/2024 1:00 PM EDT Office Visit [facility] ADULT DENT[facility] [address] [place] [address] Nuvia Duarte 230 [place] [address] documented as of this encounter Goals Goal [...] on filedocumented in this encounter Care Teams Tile Molder Relationship Specialty Start Date End Date Sariah Vickers ANP [address] [place] [address] PCP - General Family Medicine 09/23/19 documented as of this encounter
--- OUTSIDE RECORDS SUMMARY | 2024-05-04 13:11 | XMS_ITS | Encounter Summary ---
Author Organization [employer] Address 75 [facility] 7t [place] [address] Care Team Providers Care Stone Finisher Name Role Phone Sariah Vickers Primary Care Provider [phone] Reason for Visit * Reason Comments Med Refill Encounter Details Date Type Department Care Team ([facility] st Contact Info) Description 04/06/2024 Refill [facility] 230 [place] [address] Sariah Vickers ANP 230 [place] [address] Severe persistent asthma without complication Social History [...] Clinical Support [facility] [address] [place] [address] Azeb Hall RN 505 [place] [address] 07/15/2024 1:00 PM EDT Office Visit [facility] [address] [place] [address] Sariah Vickers ANP 230 [place] [address] 08/04/2024 1:00 PM EDT Office Visit [facility] ADULT DENTAL [address] [place] [address] Nuvia Duarte 230 [place] [address] documented as of this encounter Goals Goal [...] documented as of this encounter Care Teams Stone Finisher Relationship Specialty Start Date End Date Sariah Vickers ANP 230 [place] [address] PCP - General Family Medicine 09/23/19 documented as of this encounter
--- OUTSIDE RECORDS SUMMARY | 2024-05-04 13:11 | XMS_ITS | Encounter Summary ---
Author Organization [facility] Address 75 [facility] 7t [place] [address] Care Team Providers Care Knit Goods Press Hand Name Role Phone Sariah Vickers Primary Care Provider [phone] Reason for Visit * Reason Onset Date Comments Nurse Triage 01/14/2023 Encounter Details Date Type Department Care Team ([facility] st Contact Info) Description 01/14/2023 Telephone [facility] 230 [place] [address] Sariah Vickers ANP 230 [place] [address] Nurse Triage Social History Tobacco Use Types [...] t he electric, gas, oil or water [employer] threatened to shut off services in your [...] 01/14/2023 9:26 AM EST Called pt. Via [employer] storekeeper [phone] Kelly. Pt. States that she has been having a fire feeling in her legs. Its like A burning that goes down her legs . Pt. Unsure if it because of her Diabetes. Pt. Went to [facility] ED for pain on [...] at 10am. Will send note to clinical careers adviser to have note put in chart . [...] Severe pain now, pt was seen at [facility] on 01/13 for pain in leg. Pt is still symptomatic The caller accepted this outcome Please contact pt at [phone] (periodontist needed) documented in this encounter Plan of Treatment Upcoming Encounters Date Type Department Care Team (Late st Contact Info) Description 07/02/2024 11:00 AM EDT Clinical Support [facility] [address] [place] [address] Azeb Hall, RN 505 [place] [address] 07/15/2024 1:00 PM EDT Office Visit [facility] [address] [place] [address] Sariah Vickers ANP 230 [place] [address] 08/04/2024 1:00 PM EDT Office Visit [facility] ADULT DENTAL [address] [place] [address] Nuvia Duarte 230 [place] [address] documented as of this encounter Goals Goal [...] on filedocumented in this encounter Care Teams Knit Goods Press Hand Relationship Specialty Start Date End Date Sariah Vickers ANP [address] [place] [address] PCP - General Family Medicine 09/23/19 documented as of this encounter
--- OUTSIDE RECORDS SUMMARY | 2024-05-04 13:11 | XMS_ITS | Encounter Summary ---
Author Organization [employer] [facility] Address 75 [facility] 7t [place] [address] Care Team Providers Care Nuclear Weapons Custodian Name Role Phone Sariah Vickers Primary Care Provider [phone] Reason for Visit * Reason Comments Follow-up Encounter Details Date Type Department Care Team (Latest Contact Info) Description 04/15/2024 1:30 PM EST Office Visit [facility] [address] [place], [place] [phone] Sariah Vickers ANP 230 [place] [address] Umbilical hernia without obstruction and without gangrene [...] 07/02/2024 11:00 AM EDT Clinical Support [facility] [address] [place] [address] Azeb Hall RN 505 [place] [address] 07/15/2024 1:00 PM EDT Office Visit [facility] [address] [place] [address] Sariah Vickers ANP [address] [place] [address] 08/04/2024 1:00 PM EDT Office Visit [facility] ADULT DENTAL 230 [place] [address] Nuvia Duarte 230 [place] [address] documented as of this encounter Goals Goal [...] BAILEY ID NOW (04/15/2024 2:02 PM EST) [facility] Influenza B Negative Negative, Indeterminate [facility] QC Media Lot # [id number] [facility] Lot# Expiration Date [facility] Swab 04/15/2024 2:02 PM EST us Sariah Vickers ANP POINT OF CARE TEST ENTER/EDIT OR DERABLES Final Result [facility] [address] [place] [address] [phone] * POCT Rapid Covid-19 BinaxNOW (04/15/2024 2:01 PM EST) Rapid COVID Ag Negative QC Media Lot # [id number] Lot# Expiration Date [id number] Swab 04/15/2024 2:01 PM EST Result Harjinder Vickers ANP POINT OF CARE TEST ENTER/EDIT OR DERABLES Final Result * POCT Rapid Influenza A BAILEY ID NOW (04/15/2024 1:59 PM EST) Influenza A Negative Negative, Indeterminate [facility] QC Media Lot # [id number] [facility] Lot# Expiration Date [id number] [facility] Swab 04/15/2024 1:59 PM EST us Sariah PAGE POINT OF CARE TEST ENTER/EDIT OR DERABLES Edited Result - Final Performing Organization Address City/[facility] Co de Phone Number [facility] [address] [place] [phone] documented in this encounter Visit Diagnoses Diagnosis Umbilical hernia without obstruction and without gangrene- Primary Type 2 diabetes mellitus with hyperlipidemia (CMS/HCC) (CMS/HCC) Acute cough documented in this encounter Additional Health Concerns Assessment Noted Time PHQ-9 Depression Total Score: 12 08/2 024 2:58 PM EDT documented as of this encounter Care Teams Nuclear Weapons Custodian Relationship Specialty Start Date End Date Sariah Vickers ANP [address] [place] [address] PCP - General Family Medicine 09/23/19 documented as of this encounter
--- OUTSIDE RECORDS SUMMARY | 2024-05-04 13:11 | XMS_ITS | Encounter Summary ---
Author Organization [employer] [facility] Address 75 [facility] 7t [place] [address] Care Team Providers Care Repair Specialist Name Role Phone Sariah Vickers Primary Care Provider Reason for Visit * Reason Onset Date Comments Nurse Triage 12/24/2022 Encounter Details Date Type Department Care Team ([facility] st Contact Info) Description 12/24/2022 Telephone [facility] MEDICINE 230 [place] [address] Sariah Vickers ANP 230 [place] [address] Nurse Triage Social History Tobacco Use Types [...] the past 12 months, has t he [employer], gas, oil or water [employer] threatened to shut off services in your [...] - 12/24/2022 1:11 PM EST Called pt.via [employer] [phone] Benjamin. Pt. States that she wants to [...] regimen and possible referral to a new Bowling Floor Manager due to pt. Not having jeremie [...] accepted this outcome Please contact pt at [phone] documented in this encounter Plan of Treatment Upcoming Encounters Date Type Department Care Team (Late st Contact Info) Description 07/02/2024 11:00 AM EDT Clinical Support [address] [phone] Azeb Hall RN [address] [place] [address] [phone] 07/15/2024 1:00 PM EDT Office Visit [facility] 230 [place] [address] Sariah Vickers ANP 230 [place] [address] 08/04/2024 1:00 PM EDT Office Visit [facility] ADULT DENTAL 230 [place], [place] [phone] Felicia, Nuvia 230 [place] [address] documented as of this encounter Goals Goal Patient Goal Type Associated Problems Recent Progress Patient-Stated? Author Blood Pressure < 140/90 Blood Pressure 136/88(2024 11:28 AM EDT) No Phanis-Dileepl Aida urbina, PharmD Record Your Blood Sugar As Directed General No Phanis-Aida Mdeina, PharmD Hemoglobin A1c < 7 Result Component 6.6( 4 8:44 AM EST) No Phanis-Aida Medina, PharmD documented as of this encounter Visit Diagnoses Not on filedocumented in this encounter Care Teams Repair Specialist Relationship Specialty Start Date End Date Sariah Vickers ANP [address] [place] [address] PCP - General Family Medicine 09/23/19 documented as of this encounter
--- OUTSIDE RECORDS SUMMARY | 2024-05-04 13:11 | XMS_ITS | Encounter Summary ---
Author Organization [employer] Address 75 [facility] 7t [place] [address] Care Team Providers Care Cloth Layer Name Role Phone Sariah Vickers Primary Care Provider [phone] Encounter Details Date Type Department Care Team ([facility] Contact Info) Description 04/23/2024 Telephone [facility] 505 [place], [place] [phone] Azeb Hall RN 505 [place], [place] Social History Tobacco Use Types Packs/Day [...] Fyi. Pt 2 pills short at todays ESTABLISHMENT GUIDE appt. States has been in a lot of pain this month. Reminded pt of the ESTABLISHMENT GUIDE Agreement rules and to take med only as prescribed, pt verbalized understanding. F/u withyou 07/15/24. What ESTABLISHMENT GUIDE Tier would you like this patient to be? Tier 1 = HIGH RISK, Monthly ESTABLISHMENT GUIDE visits Tier 2 = MODerate RISK, Q3 Month visits Tier 3 = LOW RISK = Q4-6 month visits documented in this encounter Plan of Treatment Upcoming Encounters Date Type Department Care Team (Late st Contact Info) Description 07/02/2024 11:00 AM EDT Clinical Support [facility] MEDICINE 230 [place] [address] Azeb Hall RN 505 [place] [address] 07/15/2024 1:00 PM EDT Office Visit [facility] MEDICINE 230 [place] [address] Sariah Vickers ANP 230 [place] [address] 08/04/2024 1:00 PM EDT Office Visit [facility] ADULT DENTAL [address] [place] [address] Nvuia Duarte [address] [place] [address] documented as of this encounter Goals Goal [...] documented as of this encounter Care Teams Cloth Layer Relationship Specialty Start Date End Date Sariah Vickers ANP 230 [place] [address] PCP - General Family Medicine 09/23/19 documented as of this encounter
--- OUTSIDE RECORDS SUMMARY | 2024-05-04 13:11 | XMS_ITS | Encounter Summary ---
Author Organization [employer] Address 75 [facility] 7t [place] [address] Care Team Providers Care Sap Director Name Role Phone Sariah Vickers Primary Care Provider [phone] Reason for Visit * Reason Comments Med Refill Encounter Details Date Type Department Care Team ([facility] st Contact Info) Description 12/27/2022 Refill [facility] 230 [place] [address] Sariah Vickers ANP 230 [place] [address] Neck pain Social History Tobacco Use Types [...] 07/02/2024 11:00 AM EDT Clinical Support [facility] [address] [place] [address] Azeb Hall RN 505 [place] [address] 07/15/2024 1:00 PM EDT Office Visit [facility] [address] [place] [address] Sariah Vickers ANP 230 [place] [address] 08/04/2024 1:00 PM EDT Office Visit [facility] ADULT DENTAL [address] [place] [address] Felicia, Nuvia [address] [place] [address] documented as of this encounter Goals Goal [...] Cervicalgia documented in this encounter Care Teams Sap Director Relationship Specialty Start Date End Date Sariah Vickers ANP [address] [place] [address] PCP - General Family Medicine 09/23/19 documented as of this encounter
--- OUTSIDE RECORDS SUMMARY | 2024-05-04 13:11 | XMS_ITS | Encounter Summary ---
Author Organization [employer] Address 75 [facility] 7t [place] [address] Care Team Providers Care Surveillance Analyst Name Role Phone Sariah Vickers Primary Care Provider [phone] Reason for Visit * Reason Comments Med Refill Encounter Details Date Type Department Care Team ([facility] st Contact Info) Description 03/07/2023 Refill [facility] 230 [place] [address] Sariah Vickers ANP [address] [place] [address] Vertigo Social History Tobacco Use Types Packs/Day [...] 10:16 AM EDT Sexual Orientation Lesbian or Strnog 12/17/2021 10 :16 AM EDT documented as of this encounter Plan of Treatment Upcoming Encounters Date Type Department Care Team (Late st Contact Info) Description 07/02/2024 11:00 AM EDT Clinical Support [facility] [address] [place] [address] Azeb Hall RN 505 [place] [address] 07/15/2024 1:00 PM EDT Office Visit [facility] MED[facility]INE [address] [place] [address] Sariah Vickers ANP 230 [place] [address] 08/04/2024 1:00 PM EDT Office Visit [facility] ADULT DENTAL [address] [place] [address] Felicia Nuvia [address] [place] [address] documented as of this encounter Goals Goal [...] giddiness documented in this encounter Care Teams Surveillance Analyst Relationship Specialty Start Date End Date Sariah Vickers ANP [address] [place] [address] PCP - General Family Medicine 09/23/19 documented as of this encounter
--- OUTSIDE RECORDS SUMMARY | 2024-05-04 13:11 | XMS_ITS | Encounter Summary ---
Author Organization [employer] Address 75 [facility] 7t [place] [address] Care Team Providers Care Administration Clerk Name Role Phone Sariah Vickers Primary Care Provider Reason for Visit * Reason Comments Med Refill Encounter Details Date Type Department Care Team ([facility] st Contact Info) Description 12/19/2022 Refill [facility] 230 [place] [address] Sariah Vickers ANP 230 [place] [address] Vertigo Social History Tobacco Use Types Packs/Day [...] 11:00 AM EDT Clinical Support [facility] MED[facility]INE [address] [place] [address] Azeb Hall RN 505 [place] [address] 07/15/2024 1:00 PM EDT Office Visit [facility] MED[facility] [address] [place] [address] Sariah Vickers ANP [address] [place] [address] 08/04/2024 1:00 PM EDT Office Visit [facility] ADULT DENTAL [address] [place] [address] Felicia Nuvia 230 [place] [address] documented as of this encounter Goals Goal [...] giddiness documented in this encounter Care Teams Administration Clerk Relationship Specialty Start Date End Date Sariah Vickers ANP [address] [place] [address] PCP - General Family Medicine 09/23/19 documented as of this encounter
--- OUTSIDE RECORDS SUMMARY | 2024-05-04 13:11 | XMS_ITS | Encounter Summary ---
Author Organization [employer] [facility] Address [address] [facility] 7t [place] [address] Care Team Providers Care Hot Head 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 Name Role Phone Sariah Vickers Primary Care Provider [phone] Reason for Visit * Reason Onset Date Comments Med Refill 03/04/2023 Encounter Details Date Type Department Care Team ([facility] st Contact Info) Description 03/04/2023 Telephone [facility] [address] [place] [address] Sariah Vickers ANP [address] [place] [address] Med Refill Social History Tobacco Use Types [...] 50 MG tablet To be sent to: [facility] - [place], [place] - [address] [place] [address] documented in this encounter Plan of Treatment Upcoming Encounters Date Type Department Care Team (Late st Contact Info) Description 07/02/2024 11:00 AM EDT Clinical Support [facility] [address] [place] [phone] Azeb Hall RN [address] [place] [address] 07/15/2024 1:00 PM EDT Office Visit [facility] [address] [place] [address] Sariah Vickers ANP [address] [place] [address] 08/04/2024 1:00 PM EDT Office Visit [facility] [address] [place] [address] Nuvia Duarte [address] [place] [address] documented as of this encounter Goals Goal [...] on filedocumented in this encounter Care Teams Hot Head 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 Relationship Specialty Start Date End Date Sariah Vickers ANP [address] [place] [id number] PCP - General Family Medicine 09/23/19 documented as of this encounter
--- OUTSIDE RECORDS SUMMARY | 2024-05-04 13:11 | XMS_ITS | Encounter Summary ---
Author Organization [employer] Address [address] [facility] 7t [place] [address] Care Team Providers Care Immigration Associate Name Role Phone Sariah Vickers Primary Care Provider [phone] Reason for Visit * Reason Comments Med Refill Encounter Details Date Type Department Care Team ([facility] st Contact Info) Description 05/09/2023 Refill [facility] [address] [place] [address] Sariah Vickers ANP [address] [place] [address] High cholesterol Social History Tobacco Use Types [...] EDT Clinical Support [facility] [address] [place] [phone] Azeb Hall RN [address] [place] [address] 07/15/2024 1:00 PM EDT Office Visit [facility] [address] [place] [address] Sariah Vickers ANP [address] [place] [address] 08/04/2024 1:00 PM EDT Office Visit [facility] ADULT [facility]ENT[facility] [address] [place] [phone] Felicia, Nuvia [address] [place] [address] documented as of this encounter Goals Goal [...] hypercholesterolemia documented in this encounter Care Teams Immigration Associate Relationship Specialty Start Date End Date Sariah Vickers ANP [address] [place] [phone] PCP - General Family Medicine 09/23/19 documented as of this encounter
--- OUTSIDE RECORDS SUMMARY | 2024-05-04 13:11 | XMS_ITS | Encounter Summary ---
Author Organization [employer] Address [address] [facility] 7t [place] [address] Care Team Providers Care Content Engineer Name Role Phone Sariah Vickers Primary Care Provider [phone] Encounter Details Date Type Department Care Team [...] EDT Clinical Support [facility] [address] [place] [address] Azeb Hall, MARTIN [address] [place] [address] 07/15/2024 1:00 PM EDT Office Visit [facility] [address] [place] [address] Sariah Vickers ANP [address] [place] [address] 08/04/2024 1:00 PM EDT Office Visit [facility] ADULT [facility] [address] [place] [address] Nuvia Duarte [address] [place] [address] documented as of this encounter Goals Goal [...] documented as of this encounter Care Teams Content Engineer Relationship Specialty Start Date End Date Sariah Vickers ANP [address] [place] [phone] PCP - General Family Medicine 09/23/19 documented as of this encounter
--- OUTSIDE RECORDS SUMMARY | 2024-05-04 13:11 | XMS_ITS | Encounter Summary ---
Author Organization [employer] Address [address] [facility] [address] 7[address] [place] [address] Care Team Providers Care Computer Technical Specialist Name Role Phone Sariah Vickers Primary Care Provider [phone] Encounter Details Date Type Department Care Team (Late st Contact Info) Description 04/21/2024 Telephone [facility] [address] [place], [place] [phone] Chava Presley MD [address] [place] [address] Social History Tobacco Use Types Packs/Day Years [...] 2:36 PM EST Incoming TC from pt. [facility] staff Jenna assisting with translation. Pt [...] to pt regarding message below per Dr. Presely. No answer. Voice message left for pt to return call to [facility]. Pt to F/U as needed. [facility] staff Damaris assisting with translation. ----- [...] 07/02/2024 11:00 AM EDT Clinical Support [facility] [address] [place] [address] Azeb Hall, RN [address] [place] [address] 07/15/2024 1:00 PM EDT Office Visit [facility] [address] [place] [address] Sariah Vickers ANP [address] [place] [address] 08/04/2024 1:00 PM EDT Office Visit [facility] [address] [place] [address] Nuvia Duarte [address] [place] [address] documented as of this encounter Goals Goal [...] as of this encounter Care Teams Computer Technical Specialist Relationship Specialty Start Date End Date Sariah Vickers ANP [address] [place] [phone] PCP - General Family Medicine 09/23/19 documented as of this encounter
--- OUTSIDE RECORDS SUMMARY | 2024-05-04 13:11 | XMS_ITS | Clinical Summary ---
Author Organization [employer] Address [address] [facility] [address] [place] [address] Care Team Providers Care Electronic Service Technician Name Role Phone Anthony Ruiz Primary Care Provider [phone] Allergies Active Allergy Reactions Criticality Noted Date [...] mouth in the morning. Active Lactobacillus-In ulin ([facility] [place] and Stag [facility]) capsule TAKE 1 CAPSULE BY MOUTH EVERY [...] neuropathy, with long-term current use of insulin ([facility]) USE 1 SPRAY (3MG) IN ONE NOSTRIL [...] ions:Type 2 diabetes mellitus with hyperlipidemia (CMS/HCC) ([facility]) Inject 2 Units under the skin with breakfast, with lunch, and with evening meal. As needed as directed by provider 6 mL 1 024 Active TechLite Plus [place] 32G X 4 MM miscIndications: Type 2 diabetes mellitus with hyperlipidemia ([facility]/HCC) ([facility]) USE DIRECTED THREE TIMES DAILY 100 each 5 024 Active Diclofenac Sodium 1 % gelIndications:C hronic bilateral low back pain, unspecified whether sciatica present APPLY 2 GRAMS TOPICALLY TO AFFECTED AREA(S) ONCE DAILY NEEDED FOR PAIN 100 g 1 024 Active glucose 4 g chewable tabletIndication s:Type 2 diabetes mellitus with hyperlipidemia ([facility]) ([facility]) CHEW 4 TABLETS BY MOUTH NEEDED LOW FOR BLOOD SUGAR 50 tablet 12 024 Active Ozempic, 0.25 or 0.5 MG/DOSE, 2 MG/3ML solution pen-injectorIndi cations:Type 2 diabetes mellitus with hyperlipidemia ([facility]) ([facility]) INJECT 0.5 MG SUBCUTANEOUSLY EVERY 7 DAYS [...] miscIndications: Type 2 diabetes mellitus with hyperlipidemia ([facility]/HCC) ([facility]) Apply 1 sensor every 14 days 2 each 025 Active Continuous Glucose Group Rooms Coordinator (FreeStyle Jalil 2 [place]) deviceIndication s:Type 2 diabetes mellitus with hyperlipidemia ([facility]) ([facility]) Use to check blood sugar at least [...] (six) hours during the day. 025 Active atorvastatin (Lipitor) 80 MG tabletIndication s:High cholesterol TAKE 1 TABLET BY MOUTH AT BEDTIME 90 tablet 1 025 Active potassium chloride CR (Klor-Con M20) 20 MEQ ER tablet TAKE 1 TABLET BY MOUTH TWICE DAILY IN THE MORNING AND IN THE EVENING 180 tablet 1 025 Active Blood Glucose Monitoring Suppl (FreeStyle [place] Lite) w/Device kit USE DIRECTED 023 2024 [...] cleanup (will not trigger notification to Pharmacy)) atorvastatin (Lipitor) 80 MG tabletIndication s:High cholesterol TAKE 1 TABLET BY MOUTH AT BEDTIME 90 tablet 1 024 2024 Discontinued potassium chloride CR (Klor-Con M20) 20 MEQ ER tablet TAKE 1 TABLET BY MOUTH TWICE DAILY IN THE MORNING AND IN THE EVENING WITH FOOD 180 tablet 1 024 2024 Discontinued ipratropium-albu terol [...] her family. She will continue services with [facility] for OP therapy and psychiatry services. clinician will be available if needed during next medical appointment. PLAN: (check all that apply) Continue with current services (defined as services in the past 12 months) . Pt is engaged with OP therapy and psychiatry services with [facility] @ [facility] Excessive attrition of teeth, generalized 2023 Acute [...] her family. She will continue services with [facility] for OP therapy and psychiatry services. clinician will be available if needed during next medical appointment. PLAN: (check all that apply) Continue with current services (defined as services in the past 12 months) . Pt is engaged with OP therapy and psychiatry services with [facility] @ [facility] Fibromyalgia 07/31/2022 Right foot pain 06/21/2022 Assessment [...] for possible plantar fasciitis -referred today to press supervisor x ongoing discomfort -may need orthopedic [...] for OP individual therapy and psychiatry with [facility] at [facility]. Sees psych provider every two months and therapist bi-weekly. Pt will reach out to clinician as needed. Assessment & Plan (04/10/2023 11:08 AM EST): PLAN: (check all that apply) Behavioral Health Integration Plan Patient Self Plan Patient to reach out to [facility] team as needed Assessment & [...] Encounters Date Type Department Care Team Description 05/02/[address] [address] Anthony Ruiz ANP High cholesterol 04/29/[address] [address] Anthony Ruiz ANP Referral 04/29/2024 Travel 04/26/2024 Refill [facility] [address] [place] [address] Anthony Ruiz ANP Cervicalgia 04/23/2024 11:30 AM EST Clinical Support [address] [address] Azeb Hall, RN Long-term current use of opiate analgesic 04/23/2024 Telephone [facility] [address] [place] [address] Azeb Hall RN 04/23/2024 Travel 04/21/2024 Telephone [facility] [address] [place] [phone] Chava Presley MD 04/20/2024 11:00 AM EST [facility] [address] [address] Chava Presley MD Posterior chest pain (Primary Dx); Asthma-COPD overlap syndrome (CMS/HCC); Neck pain 04/20/2024 Orders Only [facility] [address] [place] [phone] Chava Presley MD 04/15/2024 1:30 PM EST Office Visit [address] [address] Anthony Ruiz ANP Umbilical hernia without obstruction and without gangrene (Primary Dx); Type 2 diabetes mellitus with hyperlipidemia (CMS/HCC) (CMS/HCC); Acute cough 04/15/2024 Travel 04/12/2024 Orders Only [facility] External Provider, [facility] 04/12/[address] [place] [address] Anthony Ruiz ANP Chart Prep 04/06/2024 Telephone [facility] [address] [place] [phone] Anthony Ruiz ANP Nurse Triage 04/06/2024 Refill [facility] [address] [place] [phone] Anthony Ruiz ANP Severe persistent asthma without complication 04/02/2024 Refill [facility] [address] [place] [address] Anthony Ruiz ANP Neck pain 04/02/2024 Refill [facility] [address] [place] [address] Anthony Ruiz ANP Essential hypertension; Chronic SI joint pain; Chronic bilateral low back pain, unspecified whether sciatica present 04/01/2024 Refill [facility] [address] [place] [phone] Anthony Ruiz ANP Type 2 diabetes mellitus with hyperlipidemia (CMS/HCC) (CMS/HCC) (Primary Dx) 03/29/2024 Telephone [facility] [address] [place] [phone] Candy Bains, FIELD LIABILITY GENERALIST Follow-up 03/29/2024 Orders Only [facility] [address] [place] [address] Anthony Ruiz ANP 03/28/2024 Refill [facility] [address] [place] [address] Anthony Ruiz ANP Cervicalgia 03/20/2024 Orders Only GENERIC EXTERNAL DATA DEPARTMENT Provider, Generic External Data 03/18/2024 Orders Only [facility] [address] [place] [address] Waldo Rojas MD Essential hypertension (Primary Dx) 03/17/2024 1:30 PM EST Office Visit [facility] [address] [place] [phone] Anthony Ruiz ANP Type 2 diabetes mellitus with hyperlipidemia (CMS/HCC) (Primary Dx); Abscess 03/17/2024 Telephone [facility] [address] [place] [address] Anthony Ruiz ANP 03/17/2024 Travel 03/15/2024 Telephone [facility] [address] [place] [address] Candy Bains, MARTIN Paperwork/Forms 03/13/2024 Refill [facility] [address] [place] [address] Anthony Ruiz ANP Severe persistent asthma without complication 03/12/2024 Telephone [facility] [address] [place] [phone] Anthony Ruiz ANP status check abscess 03/09/2024 Refill [facility] [address] [place] [address] Anthony Ruiz ANP Neck pain 03/03/2024 3:30 PM EST Office Visit [address] [address] Anthony Ruiz ANP Panniculitis affecting sacrum (Primary Dx); Abscess; Spondylosis of lumbar region without myelopathy or radiculopathy 03/03/2024 Travel 03/03/2024 Refill [facility] [address] [place] [phone] Anthony Ruiz ANP 03/02/2024 Telephone [facility] [address] [place] [address] Day Pool [place] chart prep 03/01/[address] [address] Anthony Ruiz ANP Durable Medical Equipment 03/01/2024 Refill [facility] [address] [place] [address] Anthony Ruiz ANP Cervicalgia 02/23/2024 2:00 PM EST Office Visit [facility] [address] [place] [phone] Marianna Manzo MD Panniculitis affecting sacrum (Primary Dx) 02/23/2024 Telephone [facility] [address] [place] [address] Anthony Ruiz ANP Nurse Triage 02/20/2024 Refill [facility] [address] [place] [address] Anthony uRiz ANP Severe persistent asthma without complication 02/19/2024 Orders Only GENERIC EXTERNAL DATA DEPARTMENT Provider, Generic External Data 02/16/[address] [address] BakerBatsheva brown [place] March recall 02/16/[address] [address] Anthony Ruiz ANP Med Refill 02/15/2024 Refill [facility] [address] [place] [address] Anthony Ruiz ANP Healthcare maintenance; Neck pain 02/13/2024 11:00 AM EST Office Visit [facility] [address] [place] [address] Chava Presley MD Asthma-COPD overlap syndrome (CMS/HCC) (Primary Dx); COPD with asthma (CMS/HCC) 02/13/[address] [address] Anthony Ruiz ANP Med Refill 02/13/2024 Telephone [facility] [address] [place] [phone] Vicenta Constantino RN [facility] triage (Saw [facility] pulmonology 02/03/24:/Assessment:/ Asthma-COPD overlap syndrome/ chronic obstructive pulmonary disease / Plan: /Well controlled on current regimen of Xolair, Advair, Combivent, and albuterol MDI. 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 02/04/2024 Refill [facility] [address] [place] [address] Anthony Ruiz ANP Cervicalgia 02/04/[address] [address] Anthony Ruiz ANP Med Refill 02/04/2024 Travel from Last 3 Months Immunizations Name Administration [...] Description 07/02/2024 11:00 AM EDT Clinical Support [address] [address] Azeb Hall, RN [address] [place] [address] 07/15/2024 1:00 PM EDT Office Visit [facility] [address] [place] [address] Anthony Ruiz ANP [address] [place] [address] 08/04/2024 1:00 PM EDT Office Visit [facility] [address] [place] [address] Brendan Duartearis [address] [place] [address] Health Maintenance Due Date Last Done Comments [...] SDOH Screening 06/22/2024 06/23/2023 Diabetes: Hemoglobin A1C 07/01/202401/01/2 024, 12/30/2023, 04/30/2023, Additional history exists Dental [...] DRUG SCREEN Routine 02/04/2024 9:31 AM EST 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 10/06/25 Internal Pass Control negative AMP, BAR, BUP, BZO, RENETTA, FTY, MDMA, MET, MOP, MTD, OXY, PCP, TCA, THC. Anthony PAGE POINT OF CARE TEST ENTER/EDIT OR DERABLES Edited Result - Final * D Dimer High Sensitivity (04/20/2024 1:21 PM EST) Pathologist [facility] D Dimer High Sensitivity 218 NG/ML [facility] Comment:D-DIMER HS REFERENCE RANGENote: Our [...] MD LAB BLOOD ORDERABLES Final Resul t [facility] [address] [place] [phone] * XR Chest 2 Views (04/20/2024 1:05 PM EST) Anatomical Region Laterality Modality Chest Radiographic Griselda ging 04/20/2024 1:05 PM EST Narrative 04/21/2024 9:57 AM EST ? [facility] ?[address] ?[place] [address] ?XRay Report ? Signed ? Patient: Avinash Ho,Nuvia E ?MR ?? #: [id number] ? : 1960 ?Acct:[id number] ? Age/Sex: 63 / F ?ADM Date: 04/20/24 ? Loc: HO.XRAY ? Attending Dr: Chava Presley MD ? Ordering Physician: CHAVA PRESLEY MD ?? Date of Service: 04/20/24 ?? Procedure(s): XR chest 2V ?? Accession Number(s): [id number] ? cc: CHAVA PRESLEY MD; ANTHONY RUIZ [...] DD/ 1305 ? TD/TT: 04/20/24 1310 ? Senior Manager Mmcoe: MSM ? Procedure Note Vinicius Frederick - 04/21/2024 [place] [address] XRay Report Signed Patient: Nuvia Fay EMR #: [id number] : 1960cct:[id number] Age/Sex: 63 / FADM Date: 04/20/24 Loc: HO.XRAY Attending Dr: Chava Presley MD Ordering Physician: CHAVA PRESLEY MD Date of Service: 04/20/24 Procedure(s): XR chest 2V Accession Number(s): [id number] cc: CHAVA PRESLEY MD; ANTHONY RUIZ NP [...] 04/21/24 0954 DD/ 1305 TD/TT: 04/20/24 1310 Senior Manager Mmcoe: NANCY Chava Presley MD IMG XR PROCEDURES Edited Result - Final * POCT Rapid Influenza B BAILEY ID NOW (04/15/2024 2:02 PM EST) Influenza B Negative Negative, Indeterminate [facility] QC Media Lot # [id number] [facility] Lot# Expiration Date [facility] Swab 04/15/2024 2:02 PM EST Anthony Ruiz ANP POINT OF CARE TEST ENTER/EDIT OR DERABLES Final Result [facility] [address] [place] [phone] * POCT Rapid Covid-19 BinaxNOW (04/15/2024 2:01 PM EST) Rapid COVID Ag Negative QC Media Lot # [id number] Lot# Expiration Date Swab 04/15/2024 2:01 PM EST Anthony Ruiz ANP POINT OF CARE TEST ENTER/EDIT OR DERABLES Final Result * POCT Rapid Influenza A BAILEY ID NOW (04/15/2024 1:59 PM EST) Influenza A Negative Negative, Indeterminate [facility] QC Media Lot # [id number] [facility] Lot# Expiration Date [facility] Swab 04/15/2024 1:59 PM EST us Anthony PAGE POINT OF CARE TEST ENTER/EDIT OR DERABLES Edited Result - Final Performing Organization Address [facility]/State/ZIP Co de Phone Number [facility] [address] [facility] [place] [address] [phone] * BI Mammogram Screening Tomosynthesis Bilateral (04/12/2024 1:48 PM EST) Anatomical Region Laterality Modality Breast Bilateral Mammography 04/12/2024 1:48 PM EST Narrative 04/17/2024 12:38 PM EST ? [facility] ? [address] ?[place] [address] ? Mammography Report ? Signed ? Patient: Nuvia Fay E ?MR ?? #: [id number] ? : 1960 ?Acct:[id number] ? Age/Sex: 63 / F ?ADM Date: 04/12/24 ? Loc: HO.MAMMO ? Attending Dr: Monica Lozano CNM ? Ordering Physician: Monica Lozano CNM ?Results: 2Beni ?? gn Findings ? Date of Service: 04/12/24 ?Follow Up: 1 Year From Orig ?? inal Mammogram ? Procedure(s): MM tomosynthesis screening BI ?? Accession Number(s): [id number] ? cc: Monica Lozano CNM; ANTHONY RUIZ [...] DD/ 1348 ? TD/TT: 04/12/24 1405 ? Senior Manager Mmcoe: ? Procedure Note Otoniel, Image - 04/17/2024 [facility] [address] [place] [address] [place] [address] Mammography Report Signed Patient: Nuvia Fay EMR #: [id number] : 1Acct:[id number] Age/Sex: 63 / FADM Date: 04/12/24 Loc: HO.MAMMO Attending Dr: Monica Lozano CNM Ordering Physician: Lozano,Monica CNMResults: 2Beni gn Findings Date of Service: 04/12/24Follow Up: 1 Year From Orig inal Mammogram Procedure(s): MM tomosynthesis screening BI Accession Number(s): [id number] cc: Monica Lozano CNM; ANTHONY RUIZ NP [...] 04/17/24 1235 DD/ 1348 TD/TT: 04/12/24 1405 Senior Manager Mmcoe: [facility] External Provider IMG BI PROCEDURES Edited Result - Final * CT Abdomen Pelvis w/ Contrast (03/20/2024 7:20 PM EST) Anatomical Region Laterality Modality Body, Pelvis, Abdomen Computed T omography 03/20/2024 7:20 PM EST Narrative 03/20/2024 7:23 PM EST ? [facility] ?[address] ?[place] [address] ? CT Scan Report ? Signed ? Patient: Avinash Ho,Nuvia E ?MR ?? #: [id number] ? : 1960 ?Acct:[id number] ? Age/Sex: 63 / F ?ADM Date: 03/20/24 ? Loc: HO.ED ? Attending Dr: ? Ordering Physician: Maritza Mckeon ?? Date of Service: 03/20/24 ?? Procedure(s): CT abdomen pelvis w IV con ?? Accession Number(s): [id number] ? cc: Maritza Mckeon; ANTHONY RUIZ NP ? Report Number: ?? [id number]: Total DLP = ??844.00 mGy-cm ? CLINICAL HISTORY: abdominal wall cellulitis ?? abscess ? CT abdomen and pelvis with contrast ? Comparison: CT/NE/SR - CT ABDOMEN WO/W IV CON - [...] ? DD/ 19 ? TD/TT: 03/20/241919 ? Senior Manager Mmcoe: ? Procedure Note Donotuseinterpreter, Image - 03/20/[address] [address] CT Scan Report Signed Patient: Nuvia Fay EMR #: [id number] : 1Acct:[id number] Age/Sex: 63 / FADM Date: 03/20/24 Loc: HO.ED Attending Dr: Ordering Physician: Maritza Mckeon Date of Service: 03/20/24 Procedure(s): CT abdomen pelvis w IV con Accession Number(s): [id number] cc: Maritza Mckeon; ANTHONY RUIZ NP Report Number: [id number]: Total DLP = 844.00 mGy-cm CLINICAL HISTORY: abdominal wall cellulitis abscess CT abdomen and pelvis with contrast Comparison: CT/NE/SR - CT ABDOMEN WO/W IV CON - [...] in OV> 03/20/241921 DD/ 19 TD/TT: 03/20/241919 Senior Manager Mmcoe: [facility] External Provider IMG CT PROCEDURES Edited Result - Final * (ABNORMAL) Glucose, Whole Blood (03/20/2024 5:01 PM EST) Only the most recent of2 resultswithin the time period is included. Pathologist [facility] Glucose, Whole Blood 163(H) 60 - 115 mg/dL [facility] Comment:METER #: [id number] 03/20/2024 5:01 PM EST 03/20/2024 5:05 PM EST Generic External Data Provider LAB BLOOD ORDERAB LES Final Result [facility] [address] [place] [phone] * (ABNORMAL) CBC auto differential (03/20/2024 2:28 PM EST) [facility] White Blood Count 6.8 4.8 - 10.8 X10*3/uL [facility] Red Blood Count 4.08(L) 4.20 - 5.50 X10*6/uL [facility] Hemoglobin 13.0 12.0 - 16.0 g/dl [facility] Hematocrit 38.0 37.0 - 47.0 % [facility] Mean Corpuscular Volume 93.1 80.0 - 98.0 fL [facility] Mean Corpuscular Hemoglobin 31.9 27.0 - 33.0 pg [facility] Mean Corpuscular HGB Conc 34.2 31.0 - 35.0 g/dl [facility] Red Cell Distribution Width 14.1 11.0 - 16.0 % [facility] Platelet Count 280 160 - 400 X10*3/uL [facility] Mean Platelet Volume 9.2(L) 9.4 - 12.3 fL [facility] Neutrophils Percent Auto 53.1 45 - 73 % [facility] Imm Gran Pct Auto 0.1 0.0 - 0.4 % [facility] Lymphocytes Percent Auto 36.2 20 - 40 % [facility] Monocytes Percent Auto 7.9 2 - 11 % [facility] Eosinophils Percent Auto 2.4 0 - 4 % [facility] Basophils Percent Auto 0.3 0 - 2 % [facility] NRBC Pct Auto 0.0 0.0 - 0.2 /100WBC [facility] Neutrophils Absolute Auto 3.6 2.0 - 8.3 x10*3/uL [facility] Imm Gran Abs Auto 0.01 0.00 - 0.03 X10*3/uL [facility] Lymphocytes Absolute Auto 2.5 1.2 - 4.9 X10*3/uL [facility] Monocytes Absolute Auto 0.5 0.1 - 1.2 X10*3/uL [facility] Eosinophils Absolute Auto 0.2 0.0 - 0.4 X10*3/uL [facility] Basophils Absolute Auto 0.0 0.0 - 0.2 X10*3/uL [facility] NRBC Abs Auto 0.000 0.0 - 0.012 X10*3/uL [facility] 03/20/2024 2:28 PM EST 03/20/2024 2:33 PM EST us Generic External Data Provider LAB BLOOD ORDERAB LES Final Result [facility] [address] [place] [address] [phone] * (ABNORMAL) Sed Rate by Modified Jeffrey (03/20/2024 2:28 PM EST) Erythrocyte Sedimentation Rate 46(H) 0 - 20 MM/HR [facility] Comment:Patients with polycy themia and many hemoglobin abnormalitiesmay have depressed sed rates whereas patients with anemiamay have elevated sed rates. 03/20/2024 2:28 PM EST 03/20/2024 2:58 PM EST Generic External Data Provider LAB BLOOD ORDERAB LES Final Result Performing Organization Address [facility] Phone Number [facility] [address] [place] [phone] * (ABNORMAL) C-reactive Protein (03/20/2024 2:28 PM EST) C Reactive Protein 3.90(H) < or = 0.50 mg/dL [facility] 03/20/2024 2:28 PM EST 03/20/2024 2:33 PM EST Generic External Data Provider LAB BLOOD ORDERAB LES Final Result Performing Organization Address [facility] Number [facility] [address] [place] [phone] * Magnesium (03/20/2024 2:28 PM EST) Magnesium 2.2 1.6 - 2.6 mg/dL [facility] 03/20/2024 2:28 PM EST 03/20/2024 2:33 PM EST Generic External Data Provider LAB BLOOD ORDERAB LES Final Result Performing Organization Address [facility] Phone Number [facility] [address] [place] [phone] * Lipase (03/20/2024 2:28 PM EST) Lipase 16 8 - 78 U/L [facility] 03/20/2024 2:28 PM EST 03/20/2024 2:33 PM EST Generic External Data Provider LAB BLOOD ORDERAB LES Final Result Performing Organization Address [facility] Co de Phone Number [facility] [address] [place] [phone] * Lactic Acid (03/20/2024 2:28 PM EST) Lactic Acid 0.8 0.5 - 2.0 mmol/L [facility] 03/20/2024 2:28 PM EST 03/20/2024 2:33 PM EST Generic External Data Provider LAB BLOOD ORDERAB LES Final Result Performing Organization Address [facility] Phone Number [facility] [facility] [address] [place] [phone] * (ABNORMAL) Hepatic Function Panel (03/20/2024 2:28 PM EST) Bilirubin, Total 0.4 0.0 - 1.0 mg/dL [facility] Bilirubin, Direct 0.2 0.0 - 0.5 mg/dL [facility] Aspartate Amino Transferase 173(H) 5 - 31 U/L [facility] Alanine Aminotransferase 249(H) 0 - 31 U/L [facility] Total Protein 7.8 6.5 - 8.0 g/dL [facility] Albumin Level 3.8 3.5 - 5.0 g/dL [facility] Alkaline Phosphatase 138(H) 39 - 117 U/L [facility] 03/20/2024 2:28 PM EST 03/20/2024 2:33 PM EST Generic External Data Provider LAB BLOOD ORDERAB LES Final Result Performing Organization Address [facility] Co de Phone Number [facility] [address] [place] [address] [phone] * (ABNORMAL) Basic Metabolic Panel (03/20/2024 2:28 PM EST) Sodium 143 135 - 145 mmol/L [facility] Potassium 3.7 3.3 - 5.1 mmol/L [facility] Chloride 112(H) 96 - 108 mmol/L [facility] Carbon Dioxide 23 22 - 29 mmol/L [facility] Anion Gap 12 12 - 20 [facility] Urea Nitrogen (BUN) 13 9 - 16 mg/dL [facility] Creatinine, Serum 0.82 0.5 - 1.4 mg/dL [facility] Creatinine Clr Calc Pharmacy 73.7 [facility] Comment:Provided height and weight: 157.48 cm,91.172 kg.eGFR (calculated from the MDRD study equation) and eCrCl(calculated from the Cockcroft-Gault equation) are based ondifferent parameters and may not yield comparable results.If eCrCl result is absurd, please check patient'sheight/weight. Estimated Glomerular Filt Rate >60 [facility] Comment:Chronic Kidney Disea se: Estimated GFR < 60 mL/min/1.81c1Jaodpx Kidney Disease: Estimated GFR < 15 mL/min/1.73m2 Glucose 112 60 - 115 mg/dL [facility] Calcium 8.7 8.4 - 10.2 mg/dL [facility] 03/20/2024 2:28 PM EST 03/20/2024 2:33 PM EST us Generic External Data Provider LAB BLOOD ORDERAB LES Final Result Performing Organization Address City/State/[facility] Co de Phone Number [facility] [address] [place] [address] [phone] * XR Chest 1 View (02/29/2024 1:36 PM EST) Anatomical Region Laterality Modality Chest Radiographic Griselda ging 02/29/2024 1:36 PM EST Narrative 02/29/2024 1:38 PM EST ? [facility] ?[address] ?[place] [address] ?XRay Report ? Signed ? Patient: Avinash Ho,Nuvia E ?MR ?? #: [id number] ? : 1960 ?Acct:[id number] ? Age/Sex: 63 / F ?ADM Date: 02/29/24 ? Loc: HO.ED ? Attending Dr: ? Ordering Physician: Kourtney Jones MD ?? Date of Service: 02/29/24 ?? Procedure(s): XR chest 1V ?? Accession Number(s): [id number] ? cc: Kourtney Jones MD; ANTHONY RUIZ [...] DD/ 1336 ? TD/TT: 02/29/24 1336 ? Senior Manager Mmcoe: ? Procedure Note Remisahilmarshaanayeliter, Image - 02/29/[address] [address] XRay Report Signed Patient: Nuvia Fay EMR #: [id number] : 1960cct:[id number] Age/Sex: 63 / FADM Date: 02/29/24 Loc: HO.ED Attending Dr: Ordering Physician: Kourtney Jones MD Date of Service: 02/29/24 Procedure(s): XR chest 1V Accession Number(s): [id number] cc: Kourtney Jones MD; ANTHONY RUIZ NP [...] in OV> 02/29/247 DD/ 35 TD/TT: 02/29/241335 Senior Manager Mmcoe: [facility] External Provider IMG XR PROCEDURES Edited Result - Final * Bacterial Vaginosis (02/19/2024 1:18 PM EST) TRICHOMONAS VAGINALIS DETECTION BY PCR NOT DETECTED Not Detect [facility] BACTERIAL VAGINOSIS DETECTION BY PCR NEGATIVE Negative [facility] Comment:The BV organism targ ets [...] DETECTION BY PCR NOT DETECTED Not Detect [facility] Eufemia glab krusei PCR NOT DETECTED Not Detect [facility] 02/19/2024 1:18 PM EST 02/19/2024 3:45 PM EST Generic External Data Provider LAB MICROBIOLOGY - GENERAL ORDERABLES Final Result [facility] [address] [place] [address] [phone] * Albumin, Random Urine W/Creatinine (01/02/2024 8:44 AM EST) Creatinine, Urine 47.20 mg/dL [facility] Microalbumin Urine 7.0 mg/L [facility] Microalbum Creatinine Ratio Ur 14.8 <30 ug/mg cr [facility] Comment:Albumin/Creatinine R atio Reference Ranges: Normal: < 30 ug/mg creatinine Microalbuminuria: 30 - 300 ug/mg creatinineClinical Albuminuria: > 300 ug/mg creatinine Urine (Urine, Random) 01/02/2024 8:44 AM EST 01/02/2024 11:09 AM EST us Anthony PAGE LAB URINE ORDERABLES Final Resul t Performing Organization Address [facility] Co de Phone Number [facility] [address] [place] [address] [phone] * (ABNORMAL) Hemoglobin A1c (01/02/2024 8:44 AM EST) Hemoglobin A1c 6.6(H) <6.0 % [facility] Comment:Hemoglobin A1C Refer ence Range Adults: 4.8 - 6.0 % Non diabetic: < 6.0 % Goal: < 7.0 %Additional Action Suggested: > 8.0 %Note: Hemoglobin A1c results are invalid for patients with abnormal amounts of HbF. Blood transfusions may impact the HbA1c concentration in the patient sample. Estimated Average Glucose 143 mg/dL [facility] Comment:eAG = Estimated ave rage glucose which is %A1C expressed asaverage glucose, using the formula of the I8Y-HgwplmaWbwgsrf Glucose study (ADAG), Diabetes Care, Vol.31,#8,Sep. 2007 01/02/2024 8:44 AM EST 01/02/2024 11:03 AM EST [facility] [place] Data Provider LAB BLOOD ORDERAB LES Final Result Performing Organization Address [facility] Co de Phone Number [facility] [address] [place] [address] [phone] * Lipid Panel, Standard (01/02/2024 8:44 AM EST) Triglycerides 93 <150 mg/dL [facility] Comment:Desirable Triglyceri de: less than 150 mg/dLBorderline High Triglyceride 150-199 mg/dLHigh Triglyceride: 200-499 mg/dLVery High Triglyceride: greater than or equal to 5OO mg/dL Cholesterol 177 <200 mg/dL [facility] Comment:Desirable Cholestero l: less than 200 mg/dLBorderline High Cholesterol: 200-239 mg/dLHigh Cholesterol: greater than 239 mg/dL LDL Cholesterol Calculated 90 <100 mg/dL [facility] Comment:Desirable LDL: less than 100 mg/dLNear Optimal/Above Optimal LDL: 110- 129 mg/dLBorderline High LDL: 130-159 mg/dLHigh LDL: 160-189 mg/dLVery High LDL: greater than or equal to 190 mg/dL HDL Cholesterol 69 >40 mg/dL [facility] Comment:Desirable HDL: great er than 40 mg/dL Note: This HDL assay may give artificially low results in patients with liver disease. 01/02/2024 8:44 AM EST 01/02/2024 11:03 AM EST us Generic External Data Provider LAB BLOOD ORDERAB LES Final Result Performing Organization Address City/State/[facility] Co de Phone Number [facility] [address] [place] [phone] * (ABNORMAL) Hm Colonoscopy (12/27/2021) Colonoscopy Abnormal(A ) Normal Historical Provider MD HEALTH MAINTENANCE Final Result * HPV E6/E7 RFLX ALFRED 16 18/45 (05/09/2020 11:19 AM EDT) HPV mRNA E6/E7 rflx Not Detected Not Detected [facility] Comment: Methodology: Principal Security Architect-Mediated Amplification This assay detects E6/E7 viral messenger RNA (mRNA) from 14 high-risk HPV types (16,18,31,33,35,39,45,51,52,56,58,59,66,68). The analytical performance characteristics of this assay have been determined by [employer]. The modifications have not been cleared or approved by the FDA. This assay has been validated pursuant to the CLIA regulations and is used for clinical purposes. For additional information, please refer to http://education.[employer]/faq/NIM322c2 (This link if provided for information/ educational purposes only.) THIS TEST WAS PERFORMED AT: [facility] [address] [place] [address] [address] [place], [place] ??[phone] HERNAN WARREN MD 05/09/2020 11:1 9 AM EDT us Yohana Avalon HISTORICAL/NON ORDERABLE LABS Fi nal Result [facility] [address] [place] [address], from Last 3 Months or Most Recently Relevant to Health Maintenance [place] [address] [place] [address] - [facility] - [facility] Care Teams Electronic Service Technician Relationship Specialty Start Date End Date Anthony Ruiz ANP [address] [place] [phone] PCP - General Family Medicine 09/23/19
--- OUTSIDE RECORDS SUMMARY | 2024-05-04 13:11 | XMS_ITS | Encounter Summary ---
Author Organization [employer] Address [address] [facility] 7t [place] [address] Care Team Providers Care Invoice Checker Name Role Phone Sariah Vickers Primary Care Provider [phone] Encounter Details Date Type Department Care Team [...] [facility] [address] [place] [address] Azeb Hall, MARTIN 505 [place] [address] 07/15/2024 1:00 PM EDT Office Visit [facility] [address] [place] [address] Sariah Vickers ANP 230 [place] [address] 08/04/2024 1:00 PM EDT Office Visit [facility] ADULT DENTAL 230 [place] [address] Nuvia Duarte [address] [place] [address] documented as of this encounter Goals Goal [...] documented as of this encounter Care Teams Invoice Checker Relationship Specialty Start Date End Date Sariah Vickers ANP [address] [place] [phone] PCP - General Family Medicine 09/23/19 documented as of this encounter
--- OUTSIDE RECORDS SUMMARY | 2024-05-04 13:12 | XMS_ITS | Encounter Summary ---
Author Organization [employer] Address [address] [facility] 7t [place] [address] Care Team Providers Care Financial Legal Assistant Name Role Phone Sariah Vickers Primary Care Provider [phone] Reason for Visit * Reason Comments Med Refill Encounter Details Date Type Department Care Team ([facility] Contact Info) Description 08/14/2022 Refill [facility] [address] [place] [address] Sariah Vickers ANP 230 [place] [address] Severe persistent asthma without complication Social History [...] Upcoming Encounters Date Type Department Care Team ([facility] Contact Info) Description 07/02/2024 11:00 AM EDT Clinical Support [facility] [address] [place] [address] Azeb Hall, RN 505 [place] [address] 07/15/2024 1:00 PM EDT Office Visit [facility] [address] [place] [address] Sariah Vickers ANP [address] [place] [address] 08/04/2024 1:00 PM EDT Office Visit [facility] ADULT DENTAL [address] [place] [address] Nuvia Duarte [address] [place] [address] documented as of this encounter Visit Diagnoses Diagnosis Severe persistent asthma without complication documented in this encounter Care Teams Financial Legal Assistant Relationship Specialty Start Date End Date Sariah Vickers ANP [address] [place] [address] PCP - General Family Medicine 09/23/19 documented as of this encounter
--- OUTSIDE RECORDS SUMMARY | 2024-05-04 13:12 | XMS_ITS | Encounter Summary ---
Author Organization [employer] [facility] Address [address] [place] [address] 7t [place] [address] Care Team Providers Care Taker Off Hemp Fiber Name Role Phone Sariah Vickers ANP Primary Care Provider Reason for Visit * Reason Comments Med Refill Encounter Details Date Type Department Care Team (Late Contact Info) Description 07/17/[address] [facility] [address] [place] [phone] Sariah Vickers ANP [address] [place] [address] Neck pain Social History Tobacco Use Types [...] Clinical Support [facility] 230 [place] [address] Azeb Hall, MARTIN 505 [place] [address] 07/15/2024 1:00 PM EDT Office [facility] 230 [place] [address] Sariah Vickers ANP 230 [place] [address] 08/04/2024 1:00 PM EDT Office Visit [facility] ADULT D[facility] 230 [place] [address] Nuvia Duarte 230 [place] [address] documented as of this encounter Visit Diagnoses Diagnosis Neck pain Cervicalgia documented in this encounter Care Teams Taker Off Hemp Fiber Relationship Specialty Start Date End Date Sariah Vickers ANP [address] [place] [address] PCP - General Family Medicine 09/23/19 documented as of this encounter
--- OUTSIDE RECORDS SUMMARY | 2024-05-04 13:12 | XMS_ITS | Encounter Summary ---
Author Organization [employer] Address [address] [facility] [address] 7t [place] [address] Care Team Providers Care Scale Model Maker Name Role Phone Sariah Vickers Primary Care Provider [phone] Reason for Visit * Reason Comments Med Refill Encounter Details Date Type Department Care Team ([facility] st Contact Info) Description 07/10/2023 Refill [facility] 230 [place] [address] Sariah Vickers ANP 230 [place] [address] Chronic SI joint pain Social History Tobacco [...] Clinical Support [facility] [address] [place] [phone] Azeb Hall RN 505 [place] [address] 07/15/2024 1:00 PM EDT Office Visit [facility] [address] [place] [address] Sariah Vickers ANP [address] [place] [address] 08/04/2024 1:00 PM EDT Office Visit [facility] AD[facility] D[facility] [address] [place] [address] Nuvia Duarte 230 [place] [address] documented as of this encounter Goals Goal [...] documented as of this encounter Care Teams Scale Model Maker Relationship Specialty Start Date End Date Sariah Vickers ANP 230 [place] [address] PCP - General Family Medicine 09/23/19 documented as of this encounter
--- OUTSIDE RECORDS SUMMARY | 2024-05-04 13:12 | XMS_ITS | Encounter Summary ---
Author Organization [employer] [facility] Address [address] [place] [address] 7t [place] [address] Care Team Providers Care Civil Engineering Assistant Name Role Phone Sariah Vickers Primary Care Provider [phone] Reason for Visit * Reason Comments Med Refill Encounter Details Date Type Department Care Team (Late Contact Info) Description 07/12/[address] [facility] [address] [place] [phone] Sariah Vickers ANP 230 [place] [address] Social History Tobacco Use Types Packs/Day Years [...] Description 07/02/2024 11:00 AM EDT Clinical Support [facility] 230 [place] [address] Azeb Hall, MARTIN 505 [place] [address] 07/15/2024 1:00 PM EDT Office Visit [facility] 230 [place] [address] Sariah Vickers ANP 230 [place] [address] 08/04/2024 1:00 PM EDT Office Visit [facility] ADULT DENT[facility] 230 [place] [address] Nuvia Duarte 230 [place] [address] documented as of this encounter Visit Diagnoses Not on filedocumented in this encounter Care Teams Civil Engineering Assistant Relationship Specialty Start Date End Date Sariah Vickers ANP [address] [place] [address] PCP - General Family Medicine 09/23/19 documented as of this encounter
--- OUTSIDE RECORDS SUMMARY | 2024-05-04 13:12 | XMS_ITS | Encounter Summary ---
Author Organization [employer] Address 75 [facility] 7t [place] [address] Care Team Providers Care Information Technology Assistant Name Role Phone Sariah Vickers Primary Care Provider [phone] Reason for Visit * Reason Comments Med Refill Encounter Details Date Type Department Care Team ([facility] st Contact Info) Description 06/30/2023 Refill [facility] 230 [place] [address] Sariah Vickers ANP 230 [place] [address] Neck pain Social History Tobacco Use Types [...] Description 07/02/2024 11:00 AM EDT Clinical Support [facility] [address] [place] [address] Azeb Hall RN 505 [place] [address] 07/15/2024 1:00 PM EDT Office Visit [facility] MED[facility] [address] [place] [address] Sariah Vickers ANP 230 [place] [address] 08/04/2024 1:00 PM EDT Office Visit [facility] ADULT DENTAL [address] [place] [address] Nuvia Duarte 230 [place] [address] documented as of this encounter Goals Goal Patient Goal Type Associated Problems Recent Progress Patient-Stated? Author Blood Pressure < 140/90 Blood Pressure 136/88(2024 11:28 AM EDT) No Piers-Gambl e, Aiad, PharmD Record Your Blood Sugar As Directed [...] documented as of this encounter Care Teams Information Technology Assistant Relationship Specialty Start Date End Date Sariah Vickers ANP 230 [place] [address] PCP - General Family Medicine 09/23/19 documented as of this encounter
--- OUTSIDE RECORDS SUMMARY | 2024-05-04 13:12 | XMS_ITS | Encounter Summary ---
Author Organization [employer] Address 75 [facility] 7t [place] [address] Care Team Providers Care Control Panel Operator Name Role Phone Sariah Vickers Primary Care Provider [phone] Reason for Visit * Reason Onset Date Comments Med Refill Durable Medical Equipment 07/15/2023 Foam M attress/Raised Toilet Seat Encounter Details Date Type Department Care Team ([facility] st Contact Info) Description 07/15/2023 Refill [facility] [address] [place], [place] [phone] Sariah Vickers ANP 230 [place] [address] Neck pain Social History Tobacco Use Types [...] Please see request sent via email by [facility] Retread Mold Operator Arlin Baker. Please Advise. Good morning, [...] AM EDT Clinical Support [facility] [address] [place] [address] Azeb Hall RN 505 [place] [address] 07/15/2024 1:00 PM EDT Office Visit [facility] [address] [place] [address] Sariah Vickers ANP [address] [place] [address] 08/04/2024 1:00 PM EDT Office Visit [facility] [address] [place] [address] Nuvia Duarte [address] [place] [address] documented as of this encounter Goals Goal [...] documented as of this encounter Care Teams Control Panel Operator Relationship Specialty Start Date End Date Sariah Vickers ANP [address] [place] [address] PCP - General Family Medicine 09/23/19 documented as of this encounter
--- OUTSIDE RECORDS SUMMARY | 2024-05-04 13:12 | XMS_ITS | Encounter Summary ---
Author Organization [employer] [facility] Address [address] [facility] 7t [place] [address] Care Team Providers Care Impact Hammer Operator Name Role Phone Sariah Vickers Primary Care Provider [phone] Reason for Visit * Reason Comments Med Refill Encounter Details Date Type Department Care Team ([facility] st Contact Info) Description 05/21/2023 Refill [facility] [address] [place] [address] Sariah Vickers ANP 230 [place] [address] Neck pain Social History Tobacco Use Types [...] 07/02/2024 11:00 AM EDT Clinical Support [facility] MED[facility] [address] [place] [phone] Azeb Hall, MARTIN 505 [place] [address] 07/15/2024 1:00 PM EDT Office Visit [facility] MED[facility] [address] [place] [address] Sariah Vickers ANP 230 [place] [address] 08/04/2024 1:00 PM EDT Office Visit [facility] ADULT DENTAL [address] [place] [address] Nuvia Duarte [address] [place] [address] documented as of this encounter Goals Goal [...] Cervicalgia documented in this encounter Care Teams Impact Hammer Operator Relationship Specialty Start Date End Date Sariah Vickers ANP [address] [place] [address] PCP - General Family Medicine 09/23/19 documented as of this encounter
--- OUTSIDE RECORDS SUMMARY | 2024-05-04 13:12 | XMS_ITS | Encounter Summary ---
Author Organization [employer] [facility] Address [address] [place] [address] 7t [place] [address] Care Team Providers Care Bottom Ironer Name Role Phone Sariah Vickers Primary Care Provider [phone] Reason for Visit * Reason Comments Med Refill Encounter Details Date Type Department Care Team (Late Contact Info) Description 07/10/2022 Refill [facility] [address] [place] [address] Sariah Vickers ANP [address] [place] [address] Vertigo Social History Tobacco Use Types Packs/Day [...] 11:00 AM EDT Clinical Support [facility] 230 [place] [address] Azeb Hall, MARTIN 505 [place] [address] 07/15/2024 1:00 PM EDT Office Visit [facility] [address] [place] [address] Sariah Vickers ANP 230 [place] [address] 08/04/2024 1:00 PM EDT Office Visit [facility] ADULT DENTAL [address] [place] [address] Nuvia Duarte 230 [place] [address] documented as of this encounter Visit Diagnoses Diagnosis Vertigo Dizziness and giddiness documented in this encounter Care Teams Bottom Ironer Relationship Specialty Start Date End Date Sariah Vickers ANP [address] [place] [address] PCP - General Family Medicine 09/23/19 documented as of this encounter
== END 2024-05-04 11:12 | disposition home or self-care (01) ==
PROVIDERS: PCP Nurse Practitioner Primary Care; Visit Provider Surgery
DX: L02.93 Carbuncle, unspecified (principal)
CPT/HCPCS: 99214

== ENCOUNTER → 2024-05-04 10:59 | Outpatient (BNVA) | payer OTHER, SELFPAY | PROVIDERS: PCP Nurse Practitioner Primary Care; Visit Provider Surgery | DX: L02.93 Carbuncle, unspecified (principal) | CPT/HCPCS: 99212 ==

== ENCOUNTER 2024-05-11 10:59 | Outpatient (AMB) | payer OTHER, SELFPAY ==
[2024-05-11 11:02] VITALS: BMI 36.3
--- NOTE | 2024-05-11 11:02 | A.OFFVIS_ITS ---
Vital Signs 05/11/24 11:02 Height 5 ft 2 in Weight 198 lb 6.656 oz BMI 36.3 Intake Visit Reasons: 1wk f/u Abscess on lower buttock Intake Note: 1 week follow-up abscess or lower buttock Licensed Appraiser Required: Yes Allergies aspirin [Aspirin] Allergy (Mild, Verified 05/04/24 11:03) ITCHY THROAT azithromycin Allergy (Unknown, Verified 05/04/24 11:03) Unknown naproxen Allergy (Unknown, Verified 05/04/24 11:03) Unknown simvastatin Allergy (Unknown, Verified 05/04/24 11:03) Unknown Fish Containing Products Allergy (Verified 05/04/24 11:03) Swelling vancomycin Allergy (Verified 05/04/24 11:03) Rash onion [ONION] Adverse Reaction (Mild, Verified 05/04/24 11:03) RED FACE HPI Comments Details: Patient presents for follow-up. She has had complete resolution of her buttock carbuncle symptoms with the antibiotic and local wound care. [facility] Medical History (Updated 05/11/24 @ 09:04 by Ron Preciado MD) Severe persistent asthma Bilateral renal cysts Abnormal ultrasound of kidney Type 2 diabetes mellitus History of kidney stones Abnormal finding on ultrasound Tear of medial meniscus of left knee Leg pain Kidney stone on left side MOCK (dyspnea on exertion) Patellofemoral arthritis of left knee Trochanteric bursitis of right hip COVID-19 Cubital tunnel syndrome on right Carpal tunnel syndrome of right wrist Renal calculi UTI (urinary tract infection) Allergic rhinitis Anxiety and depression Fibromyalgia HTN (hypertension) PTSD (post-traumatic stress disorder) Preop pulmonary/respiratory exam Vertigo Diabetes Asthma Chest pain Tubular adenoma of colon Vulvovaginitis Acute asthma exacerbation Candidiasis of mouth and esophagus Bronchitis Spondylosis of cervical region without myelopathy or radiculopathy Bronchitis COPD exacerbation Yeast infection Papanicolaou smear for cervical cancer screening Bilateral hand pain Bilateral knee pain Low vitamin D level Dry mouth Environmental allergies Non-toxic multinodular goiter Hypothyroidism Type 2 diabetes mellitus with hyperglycemia DVT (deep venous thrombosis) Menopausal state Cocaine abuse Surgical History (Updated 05/11/24 @ 11:21 by Yaniv Frank MD) History of esophagogastroduodenoscopy (EGD) H/O colonoscopy with polypectomy History of selective injection of anesthetic agent around lumbar nerve root Hx of right breast biopsy History of hysterectomy History of lithotripsy Family History Father No problems noted. 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 Skin Other: Healing of perineal carbuncle. Assessment & Plan Assessment & Plan (1) Carbuncle and furuncle of buttock: Code(s): L02.33 - Carbuncle of buttock Category: Surgical (2) Umbilical hernia: Code(s): K42.9 - Umbilical hernia without obstruction or gangrene Category: Surgical Plan Patient was tentatively scheduled for follow-up surgery of umbilical hernia few weeks time. We will see her then or p.r.n.. Carbuncle has resolved. Coding Level of Care Code Est Pt Level 4 (73460) Diagnoses Carbuncle and furuncle of buttock L02.33 Umbilical hernia K42.9
--- OUTSIDE RECORDS SUMMARY | 2024-05-11 13:27 | XMS_ITS | Encounter Summary ---
Author Organization [employer] Address [address] 7t [place] [address] Care Team Providers Care Leasing Property Manager Name Role Phone Sariah Vickers Primary Care Provider [phone] Yuri Pierre PharmD Unavailable [phone] Reason for Visit * Reason Comments Med Refill Patient walked [facility] pharmacy hasn't finished her Medbox due to missing refill for medication Gabapetin . Encounter Details Date Type Department Care Team (Late st Contact Info) Description 10/03/[address] [facility] [address] [place] [address] Sariah Vickers ANP 230 [place], [place] [phone] Chronic SI joint pain Social History Tobacco [...] 07/02/2024 11:00 AM EDT Clinical Support [facility] [address] [place] [address] Azeb Hall RN 505 [place] [address] 07/15/2024 1:00 PM EDT Office Visit [facility] [address] [place] [address] Sariah Vickers, ANP [address] [place] [address] 08/04/2024 10:00 AM EDT Medication Management [facility] [address] [place] [address] Yuri Pierre, PharmD [address] [place] [address] 08/04/2024 1:00 PM EDT Office Visit [facility] [address] [place] [address] Nuvia Duarte 230 [place] [address] documented as of this encounter Goals Goal Patient Goal Type Associated Problems Recent Progress Patient-Stated? Author Blood Pressure < 140/90 Blood Pressure 136/88(2024 11:28 AM EDT) No Phanis-Gambl Veronica urbinasa, PharmD Record Your Blood Sugar As Directed General No Piers-Gambl eVeronicasa, PharmD Hemoglobin A1c < 7 Result Component 6.6( 8:44 AM EST) No Phanis-Gambl Aida urbina, PharmD documented as of this encounter Visit Diagnoses Diagnosis Chronic SI joint pain Disorders of sacrum documented in this encounter Additional Health Concerns Assessment Noted Time PHQ-9 Depression Total Score: 12 024 2:58 PM EDT documented as of this encounter Care Teams Leasing Property Manager Relationship Specialty Start Date End Date Sariah Vickers, KAYLEE 230 [place] [address] PCP - General Family Medicine 09/23/19 Yuri Pierre, Dileep 230 [place] [address] Pharmacist Internal Medicine 05/05/24 documented as of this encounter
--- OUTSIDE RECORDS SUMMARY | 2024-05-11 13:27 | XMS_ITS | Encounter Summary ---
Author Organization [facility] Address [address] [place] [address] 7t [place] [address] Care Team Providers Care Ultrasound Manager Name Role Phone Sariah Vickers Primary Care Provider [phone] Yuri Pierre PharmD Unavailable [phone] Encounter Details Date Type Department Care Team (Latest Contact Info) Description 05/15/2018 Abstract [facility] CONVERSIONS Dental, Provider, DDS Social [...] Description 07/02/2024 11:00 AM EDT Clinical Support [facility] [address] [place] [address] Azeb Hall RN 505 [place] [address] 07/15/2024 1:00 PM EDT Office Visit [facility] [address] [place] [address] Sariah Vickers ANP 230 [place] [address] 08/04/2024 10:00 AM EDT Medication Management [facility] [address] [place] [address] Yuri Pierre, PharmD 230 [place] [address] 08/04/2024 1:00 PM EDT Office Visit [facility]ULT [facility] [address] [place] [address] Nuvia Duarte [address] [place] [address] documented as of this encounter Visit Diagnoses Not on filedocumented in this encounter Care Teams Ultrasound Manager Relationship Specialty Start Date End Date Sariah Vickers ANP [address] [place] [address] PCP - General Family Medicine 09/23/19 Yuri Pierre, Dileep [address] [place] [address] Pharmacist Internal Medicine 05/05/24 documented as of this encounter
--- OUTSIDE RECORDS SUMMARY | 2024-05-11 13:27 | XMS_ITS | Encounter Summary ---
Author Organization [employer] [facility] Address [address] [facility] 7t [place] [address] Care Team Providers Care Beta Tester Name Role Phone Sariah Vickers Primary Care Provider [phone] Yuri Pierre PharmD Unavailable [phone] Reason for Visit * Reason Onset Date Comments Nurse Triage 11/01/2022 Encounter Details Date Type Department Care Team (Late st Contact Info) Description 11/01/2022 Telephone [facility] 230 [place] [address] Sariah Vickers ANP 230 [place] [address] Nurse Triage Social History Tobacco Use Types [...] 11/01/2022 3:51 PM EDT Triage call with Yamli Stock Room Manager [place] [id number] Pt reports blood sugars have been high [...] [facility] [address] [place] [address] Azeb Hall RN 505 [place] [address] 07/15/2024 1:00 PM EDT Office Visit [facility] [address] [place] [address] Sariah Vickers ANP 230 [place] [address] 08/04/2024 10:00 AM EDT Medication Management [facility] [address] [place] [address] Yuri Pierre, PharmD 230 [place] [address] 08/04/2024 1:00 PM EDT Office Visit [facility] AD[facility] [address] [place], [place] [phone] Nuvia Duarte 230 [place] [address] documented as of this encounter Goals Goal Patient Goal Type Associated Problems Recent Progress Patient-Stated? Author Blood Pressure < 140/90 Blood Pressure 136/88(2024 11:28 AM EDT) No Aida Ragland PharmBear Record Your Blood Sugar As Directed General No Aida Ragland PharmD Hemoglobin A1c < 7 Result Component 6.6( 4 8:44 AM EST) No Aida Ragland PharmD documented as of this encounter Visit Diagnoses Not on filedocumented in this encounter Care Teams Beta Tester Relationship Specialty Start Date End Date Sariah Vickers ANP 230 [place] [address] PCP - General Family Medicine 09/23/19 Yuri Pierre PharmD 230 [place] [address] Pharmacist Internal Medicine 05/05/24 documented as of this encounter
--- OUTSIDE RECORDS SUMMARY | 2024-05-11 13:27 | XMS_ITS | Encounter Summary ---
Author Organization [employer] [facility] Address [address] [place] [address] 7t [place] [address] Care Team Providers Care Disc Ruler Operator Name Role Phone Sariah Vickers Primary Care Provider [phone] Yuri Pierre PharmD Unavailable [phone] Encounter Details Date Type Department Care Team (Latest Contact Info) Description 06/20/2021 Abstract [facility] CONVERSIONS Dental, Provider, DDS Social History Tobacco [...] EDT Clinical Support [facility] MEDICINE [address] [place] [address] Azeb Hall RN 505 [place] [address] 07/15/2024 1:00 PM EDT Office Visit [facility] [address] [place] [address] Sariah Vickers ANP 230 [place] [address] 08/04/2024 10:00 AM EDT Medication Management [facility] [address] [place] [address] Yuri Pierre, PharmD 230 [place] [address] 08/04/2024 1:00 PM EDT Office Visit [facility]ULT [facility] 230 [place] [address] Nuvia Duarte [address] [place] [address] documented as of this encounter Visit Diagnoses Not on filedocumented in this encounter Care Teams Disc Ruler Operator Relationship Specialty Start Date End Date Sariah Vickers ANP 230 [place] [address] PCP - General Family Medicine 09/23/19 Yuri Pierre, Dileep [address] [place] [address] Pharmacist Internal Medicine 05/05/24 documented as of this encounter
--- OUTSIDE RECORDS SUMMARY | 2024-05-11 13:27 | XMS_ITS | Encounter Summary ---
Author Organization [employer] [facility] Address [address] [place] [address] 7t [place] [address] Care Team Providers Care Mental Health Director Name Role Phone Sariah Vickers Primary Care Provider [phone] Yuri Pierre PharmD Unavailable [phone] Encounter Details Date Type Department Care Team (Latest Contact Info) Description 04/14/2020 Abstract [facility] CONVERSIONS Dental, Provider, DDS Social History Tobacco [...] Description 07/02/2024 11:00 AM EDT Clinical Support [facility] [address] [place] [address] Azeb Hall RN 505 [place] [address] 07/15/2024 1:00 PM EDT Office Visit [facility] [address] [place] [address] Sariah Vickers ANP 230 [place] [address] 08/04/2024 10:00 AM EDT Medication Management [facility] [address] [place] [address] Yuri Pierre, PharmD 230 [place] [address] 08/04/2024 1:00 PM EDT Office Visit [facility] 230 [place] [address] Nuvia Duarte 230 [place] [address] documented as of this encounter Visit Diagnoses Not on filedocumented in this encounter Care Teams Mental Health Director Relationship Specialty Start Date End Date Sariah Vickers ANP [address] [place] [address] PCP - General Family Medicine 09/23/19 Yuri Pierre, Dileep [address] [place] [address] Pharmacist Internal Medicine 05/05/24 documented as of this encounter
--- OUTSIDE RECORDS SUMMARY | 2024-05-11 13:27 | XMS_ITS | Encounter Summary ---
Author Organization [employer] [facility] Address [address] [facility] 7t [place] [address] Care Team Providers Care Drawing Tender Name Role Phone Sariah Vickers ANP Primary Care Provider [phone] Yuri Pierre PharmD Unavailable [phone] Reason for Visit * Reason Onset Date Comments Durable Medical Equipment 03/15/2022 Encounter Details Date Type Department Care Team (Late st Contact Info) Description 03/15/2022 Telephone [facility] MEDICINE 230 [place] [address] Sariah Vickers ANP 230 [place] [address] Durable Medical Equipment Social History Tobacco Use [...] Description 07/02/2024 11:00 AM EDT Clinical Support [address] [address] Azeb Hall RN 505 [place] [address] 07/15/2024 1:00 PM EDT Office Visit [address] [address] Sariah Vickers ANP [address] [place] [address] 08/04/2024 10:00 AM EDT Medication Management [address] [address] Yuri Pierre PharmD [address] [place] [address] 08/04/2024 1:00 PM EDT Office Visit [facility] [address] [place] [address] Felicia, Nuvia [address] [place] [address] documented as of this encounter Visit Diagnoses Not on filedocumented in this encounter Care Teams Drawing Tender Relationship Specialty Start Date End Date Sariah Vickers ANP [address] [place] [address] PCP - General Family Medicine 09/23/19 Yuri Pierre, Dileep [address] [place] [address] Pharmacist Internal Medicine 05/05/24 documented as of this encounter
--- OUTSIDE RECORDS SUMMARY | 2024-05-11 13:27 | XMS_ITS | Encounter Summary ---
Author Organization [employer] [facility] Address [address] [facility] 7t [place] [address] Care Team Providers Care Farm Contractor Name Role Phone Sariah Vickers ANP Primary Care Provider [phone] Yuri Pierre PharmD Unavailable [phone] Encounter Details Date Type Department Care Team (Late Contact Info) Description 02/05/2022 Abstract [facility] MEDICINE [address] [place] [address] Sariah Vickers ANP [address] [place] [address] Social History Tobacco Use Types Packs/Day Years [...] [facility] [address] [place] [address] Azeb Hall, MARTIN 505 [place] [address] 07/15/2024 1:00 PM EDT Office Visit [address] [address] Sariah Vickers ANP [address] [place] [address] 08/04/2024 10:00 AM EDT Medication Management [address] [address] Yuri Pierre, Dileep [address] [place] [address] 08/04/2024 1:00 PM EDT Office Visit [facility] AD[facility] DENTAL [address] [place] [address] Nuvia Duarte [address] [place] [address] documented as of this encounter Visit Diagnoses Not on filedocumented in this encounter Care Teams Farm Contractor Relationship Specialty Start Date End Date Sariah Vickers ANP [address] [place] [address] PCP - General Family Medicine 09/23/19 Yuri Pierre PharmD [address] [place] [address] Pharmacist Internal Medicine 05/05/24 documented as of this encounter
--- OUTSIDE RECORDS SUMMARY | 2024-05-11 13:27 | XMS_ITS | Encounter Summary ---
Author Organization [employer] Address [address] [facility] 7t [place] [address] Care Team Providers Care Clinical Director Name Role Phone Sariah Vickers Primary Care Provider Yuri Pierre PharmD Unavailable [phone] Reason for Visit * Reason Comments Med Refill Encounter Details Date Type Department Care Team ([facility] st Contact Info) Description 11/14/2023 Refill [facility] 230 [place], [place] [phone] Sariah Vickers ANP 230 [place] [address] Neck pain Social History Tobacco Use Types [...] Description 07/02/2024 11:00 AM EDT Clinical Support [facility] [address] [place] [address] Azeb Hall RN 505 [place] [address] 07/15/2024 1:00 PM EDT Office Visit [facility] [address] [place] [address] Sariah Vickers, ANP 230 [place] [address] 08/04/2024 10:00 AM EDT Medication Management [facility] [address] [place] [address] Yuri Pierre, PharmD [address] [place] [address] 08/04/2024 1:00 PM EDT Office Visit [facility] [address] [place] [address] Nuvia Duarte 230 [place] [address] documented as of this encounter Goals Goal [...] documented as of this encounter Care Teams Clinical Director Relationship Specialty Start Date End Date Sariah Vickers, KAYLEE 230 [place] [address] PCP - General Family Medicine 09/23/19 Yuri Pierre, Dileep 230 [place] [address] Pharmacist Internal Medicine 05/05/24 documented as of this encounter
--- OUTSIDE RECORDS SUMMARY | 2024-05-11 13:27 | XMS_ITS | Encounter Summary ---
Author Organization [employer] [facility] Address [address] [facility] 7t [place] [address] Care Team Providers Care Surgery Tech Name Role Phone Sariah Vickers Primary Care Provider [phone] Yuri Pierre PharmD Unavailable [phone] Reason for Visit * Reason Comments Med Refill Encounter Details Date Type Department Care Team (Late Contact Info) Description 03/26/2022 Refill [facility] 230 [place] [address] Sariah Vickers ANP 230 [place] [address] Social History Tobacco Use Types Packs/Day Years [...] Description 07/02/2024 11:00 AM EDT Clinical Support [facility] [address] [place] [address] Azeb Hall, RN 505 [place] [address] 07/15/2024 1:00 PM EDT Office Visit [address] [address] Sariah Vickers ANP [address] [place] [address] 08/04/2024 10:00 AM EDT Medication Management [address] [address] Yuri Pierre, Dileep [address] [place] [address] 08/04/2024 1:00 PM EDT Office Visit [facility] [address] [place] [address] Nuvia Duarte [address] [place] [address] documented as of this encounter Visit Diagnoses Not on filedocumented in this encounter Care Teams Surgery Tech Relationship Specialty Start Date End Date Sariah Vickers ANP [address] [place] [address] PCP - General Family Medicine 09/23/19 Yuri Pierre PharmD [address] [place] [address] Pharmacist Internal Medicine 05/05/24 documented as of this encounter
--- OUTSIDE RECORDS SUMMARY | 2024-05-11 13:27 | XMS_ITS | Encounter Summary ---
Author Organization [employer] Address [address] [facility] 7t [place] [address] Care Team Providers Care Farmworker Fruit Name Role Phone Sariah Vickers Primary Care Provider [phone] Yuri Pierre PharmD Unavailable [phone] Reason for Visit * Reason Comments Med Refill Encounter Details Date Type Department Care Team ([facility] st Contact Info) Description 03/09/2024 Refill [facility] [address] [place], [place] [phone] Sariah Vickers ANP 230 [place] [address] Neck pain Social History Tobacco Use Types [...] 11:00 AM EDT Clinical Support [facility] MEDICINE [address] [place] [address] Azeb Hall RN 505 [place] [address] 07/15/2024 1:00 PM EDT Office Visit [facility] MEDICINE [address] [place] [address] Sariah Vickers, ANP 230 [place] [address] 08/04/2024 10:00 AM EDT Medication Management [facility] MEDICINE [address] [place] [address] Yuri Pierre, PharmD [address] [place] [address] 08/04/2024 1:00 PM EDT Office Visit [facility] ADULT DENTAL 230 [place] [address] Nuvia Duarte [address] [place] [address] documented as of this encounter Goals Goal [...] documented as of this encounter Care Teams Farmworker Fruit Relationship Specialty Start Date End Date Sariah Vickers, KAYLEE [address] [place] [address] PCP - General Family Medicine 09/23/19 Yuri Pierre, Dileep 230 [place] [address] Pharmacist Internal Medicine 05/05/24 documented as of this encounter
--- OUTSIDE RECORDS SUMMARY | 2024-05-11 13:27 | XMS_ITS | Encounter Summary ---
Author Organization [facility] Address [address] [place] [address] 7t [place] [address] Care Team Providers Care Teacher Selection Specialist Name Role Phone Sariah Vickers Primary Care Provider [phone] Yuri Pierre PharmD Unavailable [phone] Encounter Details Date Type Department Care Team (Late st Contact Info) Description 01/09/2022 Abstract [facility] AD[facility] DENTAL [address] [place] [address] Dental, Provider, DDS Social History Tobacco Use [...] [facility] [address] [place] [address] Azeb Hall RN [address] [place] [address] 07/15/2024 1:00 PM EDT Office Visit [facility] [address] [place] [address] Sariah Vickers ANP [address] [place] [address] 08/04/2024 10:00 AM EDT Medication Management [facility] MED[facility]INE [address] [place] [address] Yuri Pierre, PharmBear 230 [place] [address] 08/04/2024 1:00 PM EDT Office Visit [facility]ULT DENTAL 230 [place] [address] Brendan Duartearis 230 [place] [address] documented as of this encounter Procedures Procedure [...] on filedocumented in this encounter Care Teams Teacher Selection Specialist Relationship Specialty Start Date End Date Sariah Vickers ANP 230 [place] [address] PCP - General Family Medicine 09/23/19 Yuri Pierre PharmD [address] [place] [address] Pharmacist Internal Medicine 05/05/24 documented as of this encounter
--- OUTSIDE RECORDS SUMMARY | 2024-05-11 13:27 | XMS_ITS | Encounter Summary ---
Author Organization [employer] Address 75 [facility] 7t [place] [address] Care Team Providers Care Sumatra Opener Name Role Phone Sariah Vickers Primary Care Provider [phone] Yuri Pierre PharmD Unavailable [phone] Reason for Visit * Reason Comments Med Refill Encounter Details Date Type Department Care Team ([facility] st Contact Info) Description 08/22/2023 Refill [facility] MEDICINE [address] [place], [place] [phone] Sariah Vickers ANP 230 [place] [address] Neck pain Social History Tobacco Use Types [...] 11:00 AM EDT Clinical Support [facility] MEDICINE [address] [place] [address] Azeb Hall RN 505 [place] [address] 07/15/2024 1:00 PM EDT Office Visit [facility] MEDICINE [address] [place] [address] Sariah Vickers, ANP 230 [place] [address] 08/04/2024 10:00 AM EDT Medication Management [facility] MEDICINE [address] [place] [address] Yuri Pierre, PharmD [address] [place] [address] 08/04/2024 1:00 PM EDT Office Visit [facility] ADULT DENTAL [address] [place] [address] Nuvia Duarte 230 [place] [address] documented as of this encounter Goals Goal [...] documented as of this encounter Care Teams Sumatra Opener Relationship Specialty Start Date End Date Sariah Vickers, KAYLEE 230 [place] [address] PCP - General Family Medicine 09/23/19 Yuri Pierre, Dileep 230 [place] [address] Pharmacist Internal Medicine 05/05/24 documented as of this encounter
--- OUTSIDE RECORDS SUMMARY | 2024-05-11 13:27 | XMS_ITS | Encounter Summary ---
Author Organization [employer] Address 75 [facility] 7t [place] [address] Care Team Providers Care Machine Maintenance Name Role Phone Sariah Vickers Primary Care Provider [phone] Yuri Pierre PharmD Unavailable [phone] Reason for Visit * Reason Comments Med Refill Encounter Details Date Type Department Care Team ([facility] st Contact Info) Description 10/24/2023 Refill [facility] MEDICINE 230 [place], [place] [phone] Sariah Vickers ANP 230 [place] [address] Neck pain Social History Tobacco Use Types [...] Support [facility] MEDICINE [address] [place] [address] Azeb Hall RN 505 [place] [address] 07/15/2024 1:00 PM EDT Office Visit [facility] MEDICINE [address] [place] [address] Sariah Vickers, ANP 230 [place] [address] 08/04/2024 10:00 AM EDT Medication Management [facility] MEDICINE [address] [place] [address] Yuri Pierre, PharmD [address] [place] [address] 08/04/2024 1:00 PM EDT Office Visit [facility] ADULT DENTAL [address] [place] [address] Nuvia Duarte 230 [place] [address] documented as of this encounter Goals Goal [...] as of this encounter Care Teams Machine Maintenance Relationship Specialty Start Date End Date Sariah Vickers, KAYLEE 230 [place] [address] PCP - General Family Medicine 09/23/19 Yuri Pierre, Dileep 230 [place] [address] Pharmacist Internal Medicine 05/05/24 documented as of this encounter
--- OUTSIDE RECORDS SUMMARY | 2024-05-11 13:27 | XMS_ITS | Encounter Summary ---
Author Organization [employer] Address 75 [facility] 7t [place] [address] Care Team Providers Care Shoe Cobbler Name Role Phone Sariah Vickers Primary Care Provider [phone] Yuri Pierre PharmD Unavailable [phone] Reason for Visit * Reason Comments Med Refill Encounter Details Date Type Department Care Team ([facility] st Contact Info) Description 09/13/2022 Refill [facility] MED & PEDS [address] [place] [address] Sariah Vickers ANP 230 [place] [address] Severe persistent allergic asthma without complication Social [...] 11:00 AM EDT Clinical Support [facility] MEDICINE [address] [place] [address] Azeb Hall, RN 505 [place] [address] 07/15/2024 1:00 PM EDT Office Visit [facility] MEDICINE [address] [place] [address] Sariah Vickers ANP 230 [place] [address] 08/04/2024 10:00 AM EDT Medication Management [address] [address] Yuri Pierre, Dileep [address] [place] [address] 08/04/2024 1:00 PM EDT Office Visit [facility] ADULT DENTAL 230 [place] [address] Felicia Nuvia 230 [place] [address] documented as of this encounter Visit Diagnoses Diagnosis Severe persistent allergic asthma without complication documented in this encounter Care Teams Shoe Cobbler Relationship Specialty Start Date End Date Sariah Vickers ANP [address] [place] [address] PCP - General Family Medicine 09/23/19 Yuri Pierre, PharmD [address] [place] [address] Pharmacist Internal Medicine 05/05/24 documented as of this encounter
--- OUTSIDE RECORDS SUMMARY | 2024-05-11 13:27 | XMS_ITS | Encounter Summary ---
Author Organization [employer] Address 75 [facility] 7t [place] [address] Care Team Providers Care Tailing Hand Name Role Phone Sariah Vickers Primary Care Provider [phone] Yuri Pierre PharmD Unavailable [phone] Reason for Visit * Reason Comments Med Refill Encounter Details Date Type Department Care Team ([facility] st Contact Info) Description 10/17/2023 Refill [facility] MED[facility] 230 [place], [place] [phone] Sariah Vickers ANP 230 [place] [address] Neck pain Social History Tobacco Use Types [...] EDT Clinical Support [facility] MEDICINE [address] [place] [address] Azeb Hall RN 505 [place] [address] 07/15/2024 1:00 PM EDT Office Visit [facility] MEDICINE [address] [place] [address] Sariah Vickers, ANP 230 [place] [address] 08/04/2024 10:00 AM EDT Medication Management [facility] MEDICINE [address] [place] [address] Yuri Pierre, PharmD [address] [place] [address] 08/04/2024 1:00 PM EDT Office Visit [facility] ADULT DENTAL [address] [place] [address] Nuvia Duarte 230 [place] [address] documented as of this encounter Goals Goal [...] documented as of this encounter Care Teams Tailing Hand Relationship Specialty Start Date End Date Sariah Vickers, KAYLEE 230 [place] [address] PCP - General Family Medicine 09/23/19 Yuri Pierre, Dileep 230 [place] [address] Pharmacist Internal Medicine 05/05/24 documented as of this encounter
--- OUTSIDE RECORDS SUMMARY | 2024-05-11 13:27 | XMS_ITS | Encounter Summary ---
Author Organization [employer] [facility] Address [address] [place] [address] 7t [place] [address] Care Team Providers Care Client Services Vice President Name Role Phone Sariah Vickers Primary Care Provider [phone] Yuri Pierre PharmD Unavailable [phone] Reason for Visit * Reason Comments Med Refill Encounter Details Date Type Department Care Team (Late st Contact Info) Description 03/03/2022 Refill [facility] MEDICINE 230 [place] [address] Sariah Vickers ANP 230 [place] [address] Social History Tobacco Use Types Packs/Day Years [...] EDT Clinical Support [facility] MEDICINE [address] [place] [address] Azeb Hall, RN 505 [place] [address] 07/15/2024 1:00 PM EDT Office Visit [address] [address] Sariah Vickers ANP 230 [place] [address] 08/04/2024 10:00 AM EDT Medication Management [address] [address] Yuri Pierre, PharmD [address] [place] [address] 08/04/2024 1:00 PM EDT Office Visit [facility] ADULT DENTAL 230 [place] [address] Felicia, Nuvia 230 [place] [address] documented as of this encounter Visit Diagnoses Not on filedocumented in this encounter Care Teams Client Services Vice President Relationship Specialty Start Date End Date Sariah Vickers ANP [address] [place] [address] PCP - General Family Medicine 09/23/19 Yuri Pierre, PharmD [address] [place] [address] Pharmacist Internal Medicine 05/05/24 documented as of this encounter
--- OUTSIDE RECORDS SUMMARY | 2024-05-11 13:27 | XMS_ITS | Encounter Summary ---
Author Organization [employer] Address [address] [facility] [address] 7t [place] [address] Care Team Providers Care Hse Specialist Name Role Phone Sariah Vickers Primary Care Provider [phone] Yuri Pierre PharmD Unavailable [phone] Reason for Visit * Reason Comments Med Refill Encounter Details Date Type Department Care Team ([facility] st Contact Info) Description 10/03/2023 Refill [facility]ENTER 230 [place], [place] [phone] Sariah Vickers ANP 230 [place] [address] Chronic SI joint pain Social History Tobacco [...] Description 07/02/2024 11:00 AM EDT Clinical Support [facility] MEDICINE [address] [place] [address] Azeb Hall RN 505 [place] [address] 07/15/2024 1:00 PM EDT Office Visit [facility] MEDICINE [address] [place] [address] Sariah Vickers, ANP 230 [place] [address] 08/04/2024 10:00 AM EDT Medication Management [facility] MEDICINE [address] [place] [address] Yuri Pierre, PharmD [address] [place] [address] 08/04/2024 1:00 PM EDT Office Visit [facility] ADULT DENTAL 230 [place] [address] Nuvia Duarte 230 [place] [address] documented as of this encounter Goals Goal [...] documented as of this encounter Care Teams Hse Specialist Relationship Specialty Start Date End Date Sariah Vickers ANP 230 [place] [address] PCP - General Family Medicine 09/23/19 Yuri Pierre PharmD 230 [place] [address] Pharmacist Internal Medicine 05/05/24 documented as of this encounter
--- OUTSIDE RECORDS SUMMARY | 2024-05-11 13:27 | XMS_ITS | Encounter Summary ---
Author Organization [employer] Address 75 [facility] 7t [place] [address] Care Team Providers Care Promotions Team Leader Name Role Phone Sariah Vickers Primary Care Provider [phone] Yuri Pierre PharmD Unavailable [phone] Reason for Visit * Reason Onset Date Comments Med Refill 02/04/2024 Encounter Details Date Type Department Care Team (Late st Contact Info) Description 02/04/2024 Telephone [facility] MEDICINE 230 [place] [address] Sariah Vickers ANP 230 [place] [address] Med Refill Social History Tobacco Use Types [...] 50 MG tablet To be sent to: [facility] - [place], [place] - [address] [place] [address] documented in this encounter Plan of Treatment Upcoming Encounters Date Type Department Care Team ([facility] st Contact Info) Description 07/02/2024 11:00 AM EDT Clinical Support [facility] MEDICINE [address] [place] [address] Azeb Hall RN 505 [place] [address] 07/15/2024 1:00 PM EDT Office Visit [facility] MEDICINE [address] [place] [address] Sariah Vickers, ANP [address] [place] [address] 08/04/2024 10:00 AM EDT Medication Management [facility] MEDICINE [address] [place] [address] Yuri Pierre, PharmD [address] [place] [address] 08/04/2024 1:00 PM EDT Office Visit [facility] ADULT DENTAL 230 [place] [address] Nuvia Duarte 230 [place] [address] documented as of this encounter Goals Goal Patient Goal Type Associated Problems Recent Progress Patient-Stated? Author Blood Pressure < 140/90 Blood Pressure 136/88(2024 11:28 AM EDT) No Phanis-Gambl Veronica urbinasa, PharmD Record Your Blood Sugar As Directed General No Piers-Gambl Veronica urbinasa, PharmD Hemoglobin A1c < 7 Result Component 6.6( 8:44 AM EST) No Phanis-Dileepl Aida urbina, PharmD documented as of this encounter Visit Diagnoses Not on filedocumented in this encounter Additional Health Concerns Assessment Noted Time PHQ-9 Depression Total Score: 12 024 2:58 PM EDT documented as of this encounter Care Teams Promotions Team Leader Relationship Specialty Start Date End Date Sariah Vickers, KAYLEE 230 [place] [address] PCP - General Family Medicine 09/23/19 Yuri Pierre, Dileep 230 [place] [address] Pharmacist Internal Medicine 05/05/24 documented as of this encounter
--- OUTSIDE RECORDS SUMMARY | 2024-05-11 13:27 | XMS_ITS | Encounter Summary ---
Author Organization [employer] Address 75 [facility] 7t [place] [address] Care Team Providers Care Restoration Officer Name Role Phone Sariah Vickers Primary Care Provider [phone] Yuri Pierre PharmD Unavailable [phone] Reason for Visit * Reason Comments Med Refill Encounter Details Date Type Department Care Team ([facility] st Contact Info) Description 11/26/2023 Refill [facility] MEDICINE 230 [place], [place] [phone] Sariah Vickers ANP 230 [place] [address] Vertigo Social History Tobacco Use Types Packs/Day [...] Description 07/02/2024 11:00 AM EDT Clinical Support [facility] MEDICINE [address] [place] [address] Azeb Hall RN 505 [place] [address] 07/15/2024 1:00 PM EDT Office Visit [facility] MEDICINE [address] [place] [address] Sariah Vickers, ANP 230 [place] [address] 08/04/2024 10:00 AM EDT Medication Management [facility] MEDICINE [address] [place] [address] Yuri Pierre, PharmD [address] [place] [address] 08/04/2024 1:00 PM EDT Office Visit [facility] ADULT DENTAL [address] [place] [address] Nuvia Duarte 230 [place] [address] documented as of this encounter Goals Goal [...] documented as of this encounter Care Teams Restoration Officer Relationship Specialty Start Date End Date Sariah Vickers ANP 230 [place] [address] PCP - General Family Medicine 09/23/19 Yuri Pierre, Dileep 230 [place] [address] Pharmacist Internal Medicine 05/05/24 documented as of this encounter
--- OUTSIDE RECORDS SUMMARY | 2024-05-11 13:27 | XMS_ITS | Encounter Summary ---
Author Organization [email or web address] Address 75 [facility] 7t [place] [address] Care Team Providers Care Metal Baler Name Role Phone Sariah Vickers Primary Care Provider [phone] Yuri Pierre PharmD Unavailable [phone] Reason for Visit * Reason Onset Date Comments Med Refill 09/18/2023 Encounter Details Date Type Department Care Team (Late st Contact Info) Description 09/18/2023 Telephone [facility] MEDICINE 230 [place] [address] Sariah Vickers ANP 230 [place] [address] Med Refill Social History Tobacco Use Types [...] : Tramadol To be sent to: [facility] - [place], [place] - [address] [place] [address] documented in this encounter Plan of Treatment Upcoming Encounters Date Type Department Care Team ([facility] st Contact Info) Description 07/02/2024 11:00 AM EDT Clinical Support [facility] MEDICINE [address] [place] [address] Azeb Hall RN 505 [place] [address] 07/15/2024 1:00 PM EDT Office Visit [facility] MEDICINE [address] [place] [address] Sariah Vickers, ANP [address] [place] [address] 08/04/2024 10:00 AM EDT Medication Management [facility] MEDICINE [address] [place] [address] Yuri Pierre, PharmD [address] [place] [address] 08/04/2024 1:00 PM EDT Office Visit [facility] ADULT DENTAL 230 [place], [place] [phone] Nuvia Duarte 230 [place] [address] documented as of this encounter Goals Goal [...] documented as of this encounter Care Teams Metal Baler Relationship Specialty Start Date End Date Sariah Vickers ANP 230 [place] [address] PCP - General Family Medicine 09/23/19 Yuri Pierre, MikeD 230 [place] [address] Pharmacist Internal Medicine 05/05/24 documented as of this encounter
--- OUTSIDE RECORDS SUMMARY | 2024-05-11 13:27 | XMS_ITS | Encounter Summary ---
Author Organization [facility] Address 75 [facility] 7t [place] [address] Care Team Providers Care Topper Packer Name Role Phone Sariah Vickers Primary Care Provider [phone] Yuri Pierre PharmD Unavailable [phone] Reason for Visit * Reason Comments Med Refill Encounter Details Date Type Department Care Team (Late Contact Info) Description 02/06/2022 Refill [facility] MEDICINE 230 [place] [address] Sariah Vickers ANP 230 [place] [address] Social History Tobacco Use Types Packs/Day Years [...] Description 07/02/2024 11:00 AM EDT Clinical Support [facility] MEDICINE [address] [place] [address] Azeb Hall, RN 505 [place] [address] 07/15/2024 1:00 PM EDT Office Visit [address] [address] Sariah Vickers ANP [address] [place] [address] 08/04/2024 10:00 AM EDT Medication Management [address] [address] Yuri Pierre, Dileep [address] [place] [address] 08/04/2024 1:00 PM EDT Office Visit [facility] ADULT DENTAL [address] [place] [address] Nuvia Duarte [address] [place] [address] documented as of this encounter Visit Diagnoses Not on filedocumented in this encounter Care Teams Topper Packer Relationship Specialty Start Date End Date Sariah Vickers ANP [address] [place] [address] PCP - General Family Medicine 09/23/19 Yuri Pierre PharmD [address] [place] [address] Pharmacist Internal Medicine 05/05/24 documented as of this encounter
--- OUTSIDE RECORDS SUMMARY | 2024-05-11 13:27 | XMS_ITS | Encounter Summary ---
Author Organization [employer] Address 75 [facility] 7t [place] [address] Care Team Providers Care Aquatic Life Laborer Name Role Phone Sariah Vickers Primary Care Provider [phone] Reason for Visit * Reason Comments Med Refill Encounter Details Date Type Department Care Team ([facility] st Contact Info) Description 05/02/2024 Refill [facility] MEDICINE 230 [place] [address] Sariah Vickers ANP 230 [place] [address] High cholesterol Social History Tobacco Use Types [...] Clinical Support [facility] MEDICINE [address] [place] [address] Azeb Hall RN 505 [place] [address] 07/15/2024 1:00 PM EDT Office Visit [address] [address] Sariah Vickers ANP [address] [place] [address] 08/04/2024 10:00 AM EDT Medication Management [address] [address] Yuri Pierre, PharmD [address] [place] [address] 08/04/2024 1:00 PM EDT Office Visit [facility] ADULT DENTAL [address] [place] [address] Nuvia Duarte [address] [place] [address] documented as of this encounter Goals Goal [...] documented as of this encounter Care Teams Aquatic Life Laborer Relationship Specialty Start Date End Date Sariah Vickers ANP [address] [place] [address] PCP - General Family Medicine 09/23/19 documented as of this encounter
--- OUTSIDE RECORDS SUMMARY | 2024-05-11 13:28 | XMS_ITS | Encounter Summary ---
Author Organization [employer] Address 75 [facility] 7t [place] [address] Care Team Providers Care Cloud Operations Engineer Name Role Phone Sariah Vickers Primary Care Provider [phone] Reason for Visit * Reason Comments Med Refill Encounter Details Date Type Department Care Team ([facility] st Contact Info) Description 04/26/2024 Refill [facility] MED & PEDS [address] [place] [address] Sariah Vickers ANP 230 [place] [address] Cervicalgia Social History Tobacco Use Types Packs/Day [...] EDT Clinical Support [facility] MEDICINE [address] [place] [address] Azeb Hall RN 505 [place] [address] 07/15/2024 1:00 PM EDT Office Visit [facility] MEDICINE [address] [place] [address] Sariah Vickers ANP [address] [place] [address] 08/04/2024 10:00 AM EDT Medication Management [address] [address] Yuri Pierre, PharmD [address] [place] [address] 08/04/2024 1:00 PM EDT Office Visit [facility] ADULT DENTAL [address] [place] [address] Nuvia Duarte [address] [place] [address] documented as of this encounter Goals Goal [...] documented as of this encounter Care Teams Cloud Operations Engineer Relationship Specialty Start Date End Date Sariah Vickers ANP [address] [place] [address] PCP - General Family Medicine 09/23/19 documented as of this encounter
--- OUTSIDE RECORDS SUMMARY | 2024-05-11 13:28 | XMS_ITS | Encounter Summary ---
Author Organization [employer] Address 75 [facility] 7t [place] [address] Care Team Providers Care Clinical Liaison Name Role Phone Sariah Vickers Primary Care Provider [phone] Yuri Pierre PharmD Unavailable [phone] Reason for Visit * Reason Comments Med Refill Encounter Details Date Type Department Care Team ([facility] st Contact Info) Description 01/06/2024 Refill [facility] CH[facility] MED & PEDS [address] [place] [address] Sariah Vickers ANP [address] [place] [address] Cervicalgia Social History Tobacco Use Types Packs/Day [...] AM EDT Clinical Support [facility] MEDICINE [address] [place] [address] Azeb Hall RN 505 [place] [address] 07/15/2024 1:00 PM EDT Office Visit [facility] MEDICINE [address] [place] [address] Sariah Vickers, ANP [address] [place] [address] 08/04/2024 10:00 AM EDT Medication Management [facility] MEDICINE [address] [place] [address] Yuri Pierre, PharmD [address] [place] [address] 08/04/2024 1:00 PM EDT Office Visit [facility] ADULT DENTAL 230 [place] [address] Nuvia Duarte [address] [place] [address] documented as of this encounter Goals Goal [...] as of this encounter Care Teams Clinical Liaison Relationship Specialty Start Date End Date Sariah Vickers ANP [address] [place] [address] PCP - General Family Medicine 09/23/19 Yuri Pierre, Dileep [address] [place] [address] Pharmacist Internal Medicine 05/05/24 documented as of this encounter
--- OUTSIDE RECORDS SUMMARY | 2024-05-11 13:28 | XMS_ITS | Encounter Summary ---
Author Organization [employer] Address [address] [facility] [address] 7t [place] [address] Care Team Providers Care Outpatient Dietitian Name Role Phone Sariah Vickers Primary Care Provider [phone] Encounter Details Date Type Department Care Team (Late st Contact Info) Description 04/21/2024 Telephone [facility] [address] [place], [place] [phone] Chava Presley MD 230 [place] [address] Social History Tobacco Use Types Packs/Day Years [...] 2:36 PM EST Incoming TC from pt. [facility] staff Jenna assisting with translation. Pt [...] left for pt to return call to [facility]. Pt to F/U as needed. [facility] staff Damaris assisting with translation. ----- [...] Description 07/02/2024 11:00 AM EDT Clinical Support [facility] [address] [place] [address] Azeb Hall, RN 505 [place] [address] 07/15/2024 1:00 PM EDT Office Visit [address] [address] Sariah Vickers ANP 230 [place] [address] 08/04/2024 10:00 AM EDT Medication Management [address] [address] Yuri Pierre PharmD [address] [place] [address] 08/04/2024 1:00 PM EDT Office Visit [facility] [address] [place] [address] Nuvia Duarte [address] [place] [address] documented as of this encounter Goals Goal [...] documented as of this encounter Care Teams Outpatient Dietitian Relationship Specialty Start Date End Date Sariah Vickers ANP [address] [place] [address] PCP - General Family Medicine 09/23/19 documented as of this encounter
--- OUTSIDE RECORDS SUMMARY | 2024-05-11 13:28 | XMS_ITS | Encounter Summary ---
Author Organization [employer] Address [address] [facility] 7t [place] [address] Care Team Providers Care Tailoring Teacher Name Role Phone Sariah Vickers Primary Care Provider [phone] Yuri Pierre PharmD Unavailable [phone] Reason for Visit * Reason Comments Med Refill Encounter Details Date Type Department Care Team ([facility] st Contact Info) Description 12/17/2023 Refill [facility] 230 [place], [place] [phone] Sariah Vickers ANP 230 [place] [address] Chronic SI joint pain Social History Tobacco [...] EDT Clinical Support [facility] [address] [place] [address] Azeb Hall RN 505 [place] [address] 07/15/2024 1:00 PM EDT Office Visit [facility] [address] [place] [address] Sariah Vickers, ANP 230 [place] [address] 08/04/2024 10:00 AM EDT Medication Management [facility] [address] [place] [address] Yuri Pierre, PharmD [address] [place] [address] 08/04/2024 1:00 PM EDT Office Visit [facility] [address] [place] [address] Nuvia Duarte 230 [place] [address] documented as of this encounter Goals Goal [...] documented as of this encounter Care Teams Tailoring Teacher Relationship Specialty Start Date End Date Sariah Vickers, KAYLEE 230 [place] [address] PCP - General Family Medicine 09/23/19 Yuri Pierre PharmD 230 [place] [address] Pharmacist Internal Medicine 05/05/24 documented as of this encounter
--- OUTSIDE RECORDS SUMMARY | 2024-05-11 13:28 | XMS_ITS | Encounter Summary ---
Author Organization [employer] Address [address] [facility] 7t [place] [address] Care Team Providers Care Regional Rehabilitation Director Name Role Phone Sariah Vickers Primary [...] Description 07/02/2024 11:00 AM EDT Clinical Support [address] [address] Azeb Hall, MARTIN 505 [place] [address] 07/15/2024 1:00 PM EDT Office Visit [address] [address] Sariah Vickers ANP [address] [place] [address] 08/04/2024 10:00 AM EDT Medication Management [address] [address] Yuri Pierre PharmD [address] [place] [address] 08/04/2024 1:00 PM EDT Office Visit [facility] [address] [place] [address] Nuvia Duarte [address] [place] [address] documented as of this encounter Goals Goal Patient Goal Type Associated Problems Recent Progress Patient-Stated? Author Blood Pressure < 140/90 Blood Pressure 136/88(2024 11:28 AM EDT) No Phanis-Gambl ciara, Aida, PharmD Record Your Blood Sugar As Directed General No Piers-Gambl e, Aida, PharmD Hemoglobin A1c < 7 Result Component 6.6( 4 8:44 AM EST) No Phanis-Gambl eAida, PharmD documented as of this encounter Visit Diagnoses Not on filedocumented in this encounter Additional Health Concerns Assessment Noted Time PHQ-9 Depression Total Score: 12 024 2:58 PM EDT documented as of this encounter Care Teams Regional Rehabilitation Director Relationship Specialty Start Date End Date Sariah Vickers ANP 230 [place] [address] PCP - General Family Medicine 09/23/19 documented as of this encounter
--- OUTSIDE RECORDS SUMMARY | 2024-05-11 13:28 | XMS_ITS | Encounter Summary ---
Author Organization [employer] Address [address] 7t [place] [address] Care Team Providers Care Weight Training Instructor Name Role Phone Sariah Vickers Primary Care Provider [phone] Reason for Visit * Reason Comments controlled substance treatment Encounter Details Date Type Department Care Team (Latest Contact Info) Description 04/23/2024 11:30 AM EST Clinical Support [facility] 230 [place] [address] Azeb Hall RN 505 [place], [place] [phone] Long-term current use of opiate analgesic Social [...] 11:30 AM EST S: Pt here for ROLL OVER PRESS OPERATOR RV. DAYA Hernandez interpreting. Prescribed Tramadol 50mg PO q12h PRN. Patient 2 pills short at todays visit. States has been in a lot of pain this month and took extra pills. Reminded ptof the ROLL OVER PRESS OPERATOR Agreement rules and to take med only as prescribed, pt verbalized understanding. PCP notified. BZO from an outside provider. Pt denies nicotine/ETOH/street drug/marijuana. Currently rates pain a 8/10 and states medication is usually 100% effective at alleviating pain when taken. Chronic pain group pamphlet given, patient not interested at this time. No other questions/ concerns at thistime. O: TOOL PUSHER verified today. TOOL PUSHER checked 04/23/24. Pill count performed. Pt has 15 pills at this time, 17 expected. (See above). UTOX (-) all tested substances, as expected. A: ROLL OVER PRESS OPERATOR Contract Revisit: Opioid dependence related to chronic pain. P: Patient to continue taking medication only as prescribed; Next ROLL OVER PRESS OPERATOR RV appointment scheduled for 07/02/24 @ 11a @[facility]. F/u with PCP 07/15/24. F/U sooner PRN. Appointment reminder given. Patient verbalized understanding and agreed to plan. documented in this encounter Plan of Treatment Upcoming Encounters Date Type Department Care Team (Late st Contact Info) Description 07/02/2024 11:00 AM EDT Clinical Support [facility] [address] [place] [address] Azeb Hall RN 505 [place] [address] 07/15/2024 1:00 PM EDT Office Visit [address] [address] Sariah Vickers ANP 230 [place] [address] 08/04/2024 10:00 AM EDT Medication Management [address] [address] Yuri Pierre, PharmD [address] [place] [address] 08/04/2024 1:00 PM EDT Office Visit [facility] 230 [place] [address] Nuvia Duarte 230 [place] [address] documented as of this encounter Goals Goal [...] Unknown 04/23/2024 10:56 AM EST Narrative Azeb Hall, MARTIN - 04/23/2024 10:56 AM EST .UTOX cup Lot#[id number] Exp. 10/06/25 Internal Pass Control negative AMP, [...] documented as of this encounter Care Teams Weight Training Instructor Relationship Specialty Start Date End Date Sariah Vickers ANP [address] [place] [address] PCP - General Family Medicine 09/23/19 documented as of this encounter
--- OUTSIDE RECORDS SUMMARY | 2024-05-11 13:28 | XMS_ITS | Encounter Summary ---
Author Organization [employer] Address [address] 7t [place] [address] Care Team Providers Care Coke Crane Operator Name Role Phone Sariah Vickers Primary Care Provider [phone] Encounter Details Date Type Department Care Team (Late st Contact Info) Description 04/20/2024 Orders Only [facility] 230 [place], [place] [phone] Chava Presley MD 230 [place], [place] [phone] Social History Tobacco Use Types Packs/Day Years [...] Description 07/02/2024 11:00 AM EDT Clinical Support [address] [address] Azeb Hall, RN 505 [place] [address] 07/15/2024 1:00 PM EDT Office Visit [address] [address] Sariah Vickers ANP [address] [place] [address] 08/04/2024 10:00 AM EDT Medication Management [address] [address] Yuri Pierre, MikeD [address] [place] [address] 08/04/2024 1:00 PM EDT Office Visit [facility] [address] [place] [address] Nuvia Duarte [address] [place] [address] documented as of this encounter Goals Goal Patient Goal Type Associated Problems Recent Progress Patient-Stated? Author Blood Pressure < 140/90 Blood Pressure 136/88(2024 11:28 AM EDT) No Aida Ragland, PharmD Record Your Blood Sugar As Directed General No PierAida Fuentes PharmD Hemoglobin A1c < 7 Result Component 6.6( 4 8:44 AM EST) No Aida Ragland PharmD documented as of this encounter Procedures Procedure Name Priority Date/Time Associated Diagnosis Comments D DIMER HIGH SENSITIVITY Routine 04/20/2024 1:21 PM EST documented in this encounter Results * D Dimer High Sensitivity (04/20/2024 1:21 PM EST) D Dimer High Sensitivity 218 NG/ML [facility] Comment:D-DIMER HS REFERENCE RANGENote: Our [...] MD LAB BLOOD ORDERABLES Final Resul t [facility] [address] [place] [phone] documented in this encounter Visit Diagnoses Not on filedocumented in this encounter Additional Health Concerns Assessment Noted Time PHQ-9 Depression Total Score: 12 08/2 024 2:58 PM EDT documented as of this encounter Care Teams Coke Crane Operator Relationship Specialty Start Date End Date Sariah Vickers ANP [address] [place] [address] PCP - General Family Medicine 09/23/19 documented as of this encounter
--- OUTSIDE RECORDS SUMMARY | 2024-05-11 13:28 | XMS_ITS | Encounter Summary ---
Author Organization [employer] Address [address] [facility] 7t [place] [address] Care Team Providers Care Photographic Equipment Technician Name Role Phone Sariah Vickers Primary Care Provider [phone] Reason for Visit * Reason Onset Date Comments Prior Authorization 05/04/2024 Encounter Details Date Type Department Care Team ([facility] st Contact Info) Description 05/04/2024 Telephone [facility] 230 [place] [address] Sariah Vickers ANP 230 [place] [address] Prior Authorization Social History Tobacco Use Types Packs/Day Years [...] encounter Miscellaneous Notes * Telephone Encounter - Mayra Nguyễn - 05/04/2024 1:57 PM EDT PA for Advair 250-50 received. Tape Sewing 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 called [facility]/Pharmacy and confirmed PA not needed. Pt picked up 04/30/2024. documented in this encounter Plan of Treatment Upcoming Encounters Date Type Department Care Team (Late st Contact Info) Description 07/02/2024 11:00 AM EDT Clinical Support [facility] [address] [place] [address] Azeb Hall, MARTIN 505 [place] [address] 07/15/2024 1:00 PM EDT Office Visit [facility] [address] [place] [address] Sariah Vickers, ANP [address] [place] [address] 08/04/2024 10:00 AM EDT Medication Management [facility] [address] [place] [address] Yuri Pierre, PharmD [address] [place] [address] 08/04/2024 1:00 PM EDT Office Visit [facility] 230 [place] [address] Nuvia Duarte 230 [place] [address] documented as of this encounter Goals Goal [...] documented as of this encounter Care Teams Photographic Equipment Technician Relationship Specialty Start Date End Date Sariah Vickers ANP 230 [place] [address] PCP - General Family Medicine 09/23/19 documented as of this encounter
--- OUTSIDE RECORDS SUMMARY | 2024-05-11 13:28 | XMS_ITS | Encounter Summary ---
Author Organization [employer] Address [address] [facility] 7t [place] [address] Care Team Providers Care Manager Of Merchandising Name Role Phone Sariah Vickers Primary Care Provider [phone] Reason for Visit * Reason Onset Date Comments Chart Prep 04/12/2024 Encounter Details Date Type Department Care Team ([facility] st Contact Info) Description 04/12/2024 Telephone [facility] 230 [place] [address] Sariah Vickers ANP 230 [place] [address] Chart Prep Social History Tobacco Use Types [...] 07/02/2024 11:00 AM EDT Clinical Support [facility] [address] [place] [address] Azeb Hall, MARTIN 505 [place] [address] 07/15/2024 1:00 PM EDT Office Visit [facility] [address] [place] [address] Sariah Vickers, ANP [address] [place] [address] 08/04/2024 10:00 AM EDT Medication Management [facility] [address] [place] [address] Yuri Pierre, PharmD [address] [place] [address] 08/04/2024 1:00 PM EDT Office Visit [facility] 230 [place] [address] Nuvia Duarte 230 [place] [address] documented as of this encounter Goals Goal [...] as of this encounter Care Teams Manager Of Merchandising Relationship Specialty Start Date End Date Sariah Vickers ANP 230 [place] [address] PCP - General Family Medicine 09/23/19 documented as of this encounter
--- OUTSIDE RECORDS SUMMARY | 2024-05-11 13:28 | XMS_ITS | Encounter Summary ---
Author Organization [facility] Address [address] [facility] 7t [place] [address] Care Team Providers Care Ore Dryer Name Role Phone Sariah Vickers Primary Care Provider [phone] Reason for Visit * Reason Onset Date Comments Referral 04/29/2024 Encounter Details Date Type Department Care Team ([facility] st Contact Info) Description 04/29/2024 Telephone [facility] 230 [place] [address] Sariah Vickers ANP 230 [place] [address] Referral Social History Tobacco Use Types Packs/Day [...] said she gets allergy injections from her wound care coordinator at [facility]. Patient was advised wound care coordinator will be out of practice as of 09/2024. Patient wants new referral to different wound care coordinator. documented in this encounter Plan of Treatment Upcoming Encounters Date Type Department Care Team (Late st Contact Info) Description 07/02/2024 11:00 AM EDT Clinical Support [facility] [address] [place] [address] Azeb Hall, RN 505 [place] [address] 07/15/2024 1:00 PM EDT Office Visit [facility] [address] [place] [address] Sariah Vickers, KAYLEE [address] [place] [address] 08/04/2024 10:00 AM EDT Medication Management [facility] [address] [place] [address] Yuri Pierre, PharmD [address] [place] [address] 08/04/2024 1:00 PM EDT Office Visit [facility] 230 [place] [address] Nuvia Duarte 230 [place] [address] documented as of this encounter Goals Goal Patient Goal Type Associated Problems Recent Progress Patient-Stated? Author Blood Pressure < 140/90 Blood Pressure 136/88(2024 11:28 AM EDT) No Phanis-Gambl Veronica urbinasa, PharmD Record Your Blood Sugar As Directed General No Phanis-Gambl Veronica urbinasa, PharmD Hemoglobin A1c < 7 Result Component 6.6( 8:44 AM EST) No PhanisAida Cheng PharmD documented as of this encounter Visit Diagnoses Not on filedocumented in this encounter Additional Health Concerns Assessment Noted Time PHQ-9 Depression Total Score: 12 09/30/ 024 2:58 PM EDT documented as of this encounter Care Teams Ore Dryer Relationship Specialty Start Date End Date Sariah Vickers ANP 230 [place] [address] PCP - General Family Medicine 09/23/19 documented as of this encounter
--- OUTSIDE RECORDS SUMMARY | 2024-05-11 13:28 | XMS_ITS | Encounter Summary ---
Author Organization [employer] Address [address] [facility] 7t [place] [address] Care Team Providers Care Apprentice Painter Neckties Name Role Phone Sariah Vickers Primary Care Provider [phone] Yuri Pierre PharmD Unavailable [phone] Reason for Visit * Reason Comments Med Refill Encounter Details Date Type Department Care Team ([facility] st Contact Info) Description 01/06/2024 Refill [facility] [address] [place] [address] Sariah Vickers ANP 230 [place] [address] Cervicalgia Social History Tobacco Use Types Packs/Day [...] Description 07/02/2024 11:00 AM EDT Clinical Support [facility] [address] [place] [address] Azeb Hall RN 505 [place] [address] 07/15/2024 1:00 PM EDT Office Visit [facility] [address] [place] [address] Sariah Vickers, ANP 230 [place] [address] 08/04/2024 10:00 AM EDT Medication Management [facility] [address] [place] [address] Yuri Pierre, PharmD [address] [place] [address] 08/04/2024 1:00 PM EDT Office Visit [facility] ADULT [facility] 230 [place] [address] Nuvia Durate 230 [place] [address] documented as of this encounter Goals Goal [...] documented as of this encounter Care Teams Apprentice Painter Neckties Relationship Specialty Start Date End Date Sariah Vickers ANP 230 [place] [address] PCP - General Family Medicine 09/23/19 Yuri Pierre, Dileep 230 [place] [address] Pharmacist Internal Medicine 05/05/24 documented as of this encounter
--- OUTSIDE RECORDS SUMMARY | 2024-05-11 13:28 | XMS_ITS | Encounter Summary ---
Author Organization [employer] Address [address] [facility] 7t [place] [address] Care Team Providers Care Senior Oracle Applications Developer Name Role Phone Sariah Vickers Primary Care Provider Encounter Details Date Type Department Care Team ([facility] Contact Info) Description 04/23/2024 Telephone [facility] 505 [place], [place] [phone] Azeb Hall RN 505 [place], [place] Social History Tobacco Use Types Packs/Day [...] Fyi. Pt 2 pills short at todays SALVATIONIST appt. States has been in a lot of pain this month. Reminded pt of the SALVATIONIST Agreement rules and to take med only as prescribed, pt verbalized understanding. F/u withyou 07/15/24. What SALVATIONIST Tier would you like this patient to be? Tier 1 = HIGH RISK, Monthly SALVATIONIST visits Tier 2 = MODerate RISK, Q3 Month visits Tier 3 = LOW RISK = Q4-6 month visits documented in this encounter Plan of Treatment Upcoming Encounters Date Type Department Care Team (Late st Contact Info) Description 07/02/2024 11:00 AM EDT Clinical Support [facility] [address] [place] [address] Azeb Hall RN 505 [place] [address] 07/15/2024 1:00 PM EDT Office Visit [facility] [address] [place] [address] Sariah Vickers, KAYLEE 230 [place] [address] 08/04/2024 10:00 AM EDT Medication Management [facility] [address] [place] [address] Yuri Pierre, PharmD 230 [place] [address] 08/04/2024 1:00 PM EDT Office Visit [facility] 230 [place] [address] Nuvia Duarte 230 [place] [address] documented as of this encounter Goals Goal [...] as of this encounter Care Teams Senior Oracle Applications Developer Relationship Specialty Start Date End Date Sariah Vickers ANP 230 [place] [address] PCP - General Family Medicine 09/23/19 documented as of this encounter
--- OUTSIDE RECORDS SUMMARY | 2024-05-11 13:28 | XMS_ITS | Encounter Summary ---
Author Organization [employer] Address 75 [facility] 7t [place] [address] Care Team Providers Care Rn Hemo Dialysis Name Role Phone Anthony Ruiz Primary Care Provider [phone] Encounter Details Date Type Department Care Team (Late st Contact Info) Description 04/12/2024 Orders Only [facility] External Provider, [facility] Social History Tobacco Use Types Packs/Day [...] 07/02/2024 11:00 AM EDT Clinical Support [facility] [address] [place] [address] Azeb Hall, MARTIN 505 [place] [address] 07/15/2024 1:00 PM EDT Office Visit [address] [address] Anthony Ruiz ANP 230 [place] [address] 08/04/2024 10:00 AM EDT Medication Management [address] [address] Yuri Pierre PharmD [address] [place] [address] 08/04/2024 1:00 PM EDT Office Visit [facility]ULT [facility] [address] [place] [address] Nuvia Duarte 230 [place] [address] documented as of this encounter Goals Goal [...] EST Narrative 04/17/2024 12:38 PM EST ? [facility] ? [address] ?[place], [place] [address] ? Mammography Report ? Signed ? Patient: Nuvia Fay ?MR ?? #: [id number] ? : 1960 ?Acct:[id number] ? Age/Sex: 63 / F ?ADM Date: 04/12/24 ? Loc: HO.MAMMO ? Attending Dr: Monica Lozano CNM ? Ordering Physician: Monica Lozano CNEstefania ?Results: 2Beni ?? gn Findings ? Date of Service: 04/12/24 ?Follow Up: 1 Year From Orig ?? inal Mammogram ? Procedure(s): MM tomosynthesis screening BI ?? Accession Number(s): [id number] ? cc: Monica Lozano CNM; ANTHONY RUIZ [...] DD/ 1348 ? TD/TT: 04/12/24 1405 ? Barrel Loader: ? Procedure Note Otoniel, Image - 04/17/2024 [facility] [address] [place] [address] [place] [address] Mammography Report Signed Patient: Nuvia Fay EMR #: [id number] : 1Acct:[id number] Age/Sex: 63 / FADM Date: 04/12/24 Loc: AMARJIT Attending Dr: Monica Lozano CNM Ordering Physician: Monica LozanoMResults: 2Beni gn Findings Date of Service: 04/12/24Follow Up: 1 Year From Orig inal Mammogram Procedure(s): MM tomosynthesis screening BI Accession Number(s): [id number] cc: Monica Lozano CNM; ANTHONY RUIZ ROOM SERVICE SERVER EXAMINATION: MM SCREENING DIGITAL BREAST TOMOSYNTHESIS, BILATERAL [...] by: Cherrie Roberts DO 04/17/2024 12:35 PM [facility] Dictated By: Cherrie Roberts DO Signed By: <Electronically signed by Cherrie Roberts DO in OV> 04/17/24 1235 DD/ 1348 TD/TT: 04/12/24 1405 Barrel Loader: [facility] External Provider IMG BI PROCEDURES Edited Result - Final documented in this encounter Visit Diagnoses Not on filedocumented in this encounter Additional Health Concerns Assessment Noted Time PHQ-9 Depression Total Score: 12 024 2:58 PM EDT documented as of this encounter Care Teams Rn Hemo Dialysis Relationship Specialty Start Date End Date Anthony Ruiz ANP 230 [place] [address] PCP - General Family Medicine 09/23/19 documented as of this encounter
--- OUTSIDE RECORDS SUMMARY | 2024-05-11 13:28 | XMS_ITS | Encounter Summary ---
Author Organization [employer] Address [address] [facility] 7t [place] [address] Care Team Providers Care Farmer General Name Role Phone Sariah Vickers Primary Care Provider Yuri Pierre PharmD Unavailable [phone] Reason for Visit * Reason Onset Date Comments Med Refill 01/09/2024 Encounter Details Date Type Department Care Team (Late st Contact Info) Description 01/09/2024 Telephone [facility] [address] [place] [address] Sariah Vickers ANP [address] [place] [address] Med Refill Social History Tobacco Use Types [...] Support [facility] [address] [place] [phone] Azeb Hall, MARTIN [address] [place] [address] 07/15/2024 1:00 PM EDT Office Visit [facility] [address] [place] [address] Sariah Vcikers, ANP [address] [place] [address] 08/04/2024 10:00 AM EDT Medication Management [facility] [address] [place] [address] Yuri Pierre, PharmD [address] [place] [address] 08/04/2024 1:00 PM EDT Office Visit [facility] AD[facility] DENTAL [address] [place] [address] Nuvia Duarte [address] [place] [address] documented as of this encounter Goals Goal [...] documented as of this encounter Care Teams Farmer General Relationship Specialty Start Date End Date Sariah Vickers, KAYLEE [address] [place] [address] PCP - General Family Medicine 09/23/19 Yuri Pierre PharmD [address] [place] [address] Pharmacist Internal Medicine 05/05/24 documented as of this encounter
--- OUTSIDE RECORDS SUMMARY | 2024-05-11 13:28 | XMS_ITS | Encounter Summary ---
Author Organization [employer] Address [address] [facility] 7t [place] [address] Care Team Providers Care Shake Cutter Name Role Phone Sariah Vickers Primary Care Provider [phone] Encounter Details Date Type Department Care Team [...] Description 07/02/2024 11:00 AM EDT Clinical Support [address] [address] Azeb Hall, MARTIN [address] [place] [address] 07/15/2024 1:00 PM EDT Office Visit [address] [address] Sariah Vickers ANP [address] [place] [address] 08/04/2024 10:00 AM EDT Medication Management [address] [address] Yuri Pierre PharmD [address] [place] [address] 08/04/2024 1:00 PM EDT Office Visit [facility] ADULT DENTAL [address] [place] [address] Nuvia Duarte [address] [place] [phone] documented as of this encounter Goals Goal [...] documented as of this encounter Care Teams Shake Cutter Relationship Specialty Start Date End Date Sariah Vickers ANP [address] [place] [address] PCP - General Family Medicine 09/23/19 documented as of this encounter
--- OUTSIDE RECORDS SUMMARY | 2024-05-11 13:28 | XMS_ITS | Encounter Summary ---
Author Organization [employer] Address [address] [facility] 7t [place] [address] Care Team Providers Care Precast Worker Name Role Phone Sariah Vickers Primary Care Provider [phone] Yuri Pierre PharmD Unavailable Reason for Visit * Reason Onset Date Comments Prior Authorization 05/07/2024 Encounter Details Date Type Department Care Team (Late st Contact Info) Description 05/07/2024 Telephone [facility] MEDICINE [address] [place] [address] Sariah Vickers ANP [address] [place] [address] Prior Authorization Social History Tobacco Use Types [...] Miscellaneous Notes * Telephone Encounter - Dianna Kurtz RN - 05/07/2024 1:17 PM EDT Received request for prior authorization for Jalil 2 plus sensors recently prescribed by pharmacist. Called [facility] pharmacy, PA required. Generated PA packet, placed on PCP desk for signature. documented in this encounter Plan of Treatment Upcoming Encounters Date Type Department Care Team (Late st Contact Info) Description 07/02/2024 11:00 AM EDT Clinical Support [facility] MEDICINE [address] [place] [phone] Azeb Hall, MARTIN [address] [place] [address] 07/15/2024 1:00 PM EDT Office Visit [facility] MEDICINE [address] [place] [address] Sariah Vickers, ANP [address] [place] [address] 08/04/2024 10:00 AM EDT Medication Management [facility] MED[facility]INE [address] [place] [address] Yuri Pierre, PharmD [address] [place] [address] 08/04/2024 1:00 PM EDT Office Visit [facility] ADULT DENTAL [address] [place], [place] [phone] Nuvia Duarte [address] [place] [address] documented as of this encounter Goals Goal [...] documented as of this encounter Care Teams Precast Worker Relationship Specialty Start Date End Date Sariah Vickers, KAYLEE [address] [place] [address] PCP - General Family Medicine 09/23/19 Yuri Pierre, Dileep [address] [place] [address] Pharmacist Internal Medicine 05/05/24 documented as of this encounter
--- OUTSIDE RECORDS SUMMARY | 2024-05-11 13:28 | XMS_ITS | Encounter Summary ---
Author Organization [employer] Address [address] [facility] 7t [place] [address] Care Team Providers Care Rewinder Operator Helper Name Role Phone Sariah Vickers Primary Care Provider [phone] Yuri Pierre PharmD Unavailable [phone] Reason for Visit * Reason Comments Med Refill Encounter Details Date Type Department Care Team ([facility] st Contact Info) Description 01/04/2024 Refill [facility] [address] [place] [address] Sariah Vickers ANP [address] [place] [address] Cervicalgia Social History Tobacco Use Types Packs/Day [...] Clinical Support [facility] MEDICINE [address] [place] [phone] Azeb Hall RN [address] [place] [address] 07/15/2024 1:00 PM EDT Office Visit [facility] MEDICINE [address] [place] [phone] Sariah Vickers, ANP [address] [place] [address] 08/04/2024 10:00 AM EDT Medication Management [facility] MED[facility]INE [address] [place] [address] Yuri Pierre, PharmD [address] [place] [address] 08/04/2024 1:00 PM EDT Office Visit [facility] ADULT DENTAL [address] [place] [address] Nuvia Duarte [address] [place] [address] documented as of this encounter Goals Goal [...] documented as of this encounter Care Teams Rewinder Operator Helper Relationship Specialty Start Date End Date Sariah Vickers ANP [address] [place] [address] PCP - General Family Medicine 09/23/19 Yuri Pierre, Dileep [address] [place] [address] Pharmacist Internal Medicine 05/05/24 documented as of this encounter
--- OUTSIDE RECORDS SUMMARY | 2024-05-11 13:28 | XMS_ITS | Clinical Summary ---
Author Organization [employer] Address [address] [facility] 7t [place] [address] Care Team Providers Care Sign Designer Name Role Phone Anthony Ruiz KAYLEE Primary Care Provider [phone] Yuri Pierre PharmD Unavailable [phone] Allergies Active Allergy Reactions Criticality Noted Date [...] mouth in the morning. Active Lactobacillus-In ulin ([facility] [employer] [facility]) capsule TAKE 1 CAPSULE BY MOUTH [...] neuropathy, with long-term current use of insulin ([facility]) USE 1 SPRAY (3MG) IN ONE NOSTRIL FOR A PATIENT WITH SEVERE HYPOGLYCEMIA WHO IS NOT RESPONSIVE AND UNABLE SELF-TREAT WITH GLUCOSE. AFTERWARDS TURN ON SIDE. MAY REPEAT IN 15MINUTES IF PATIENT DOES NOT RESPOND. 2 each 1 024 Active insulin lispro (HumaLOG KWIKPEN) 100 UNIT/ML injectionIndicat ions:Type 2 diabetes mellitus with hyperlipidemia (CMS/HCC) ([facility]) Inject 2 Units under the skin with breakfast, with lunch, and with evening meal. As needed as directed by provider 6 mL 1 024 Active TechLite Plus Pen Hydro 32G X 4 MM miscIndications: Type 2 diabetes mellitus with hyperlipidemia (CMS/HCC) ([facility]) USE DIRECTED THREE TIMES DAILY 100 each 5 024 Active Diclofenac Sodium 1 % gelIndications:C hronic bilateral low back pain, unspecified whether sciatica present APPLY 2 GRAMS TOPICALLY TO AFFECTED AREA(S) ONCE DAILY NEEDED FOR PAIN 100 g 024 Active glucose 4 g chewable tabletIndication s:Type 2 diabetes mellitus with hyperlipidemia (CMS/HCC) ([facility]) CHEW 4 TABLETS BY MOUTH NEEDED LOW FOR BLOOD SUGAR 50 tablet 12 024 Active Ozempic, 0.25 or 0.5 MG/DOSE, 2 MG/3ML solution pen-injectorIndi cations:Type 2 diabetes mellitus with hyperlipidemia (CMS/HCC) ([facility]) INJECT 0.5 MG SUBCUTANEOUSLY EVERY 7 DAYS [...] 60 each 5 025 Active Continuous Glucose Punch Out Crew Member ([employer] Jalil 2 [place]) deviceIndication s:Type 2 diabetes mellitus with hyperlipidemia (CMS/HCC) ([facility]) Use to check blood sugar at least [...] THE EVENING 180 tablet 1 025 Active Continuous Glucose Sensor (FreeStyle Jalil 2 Plus Sensor) miscIndications: Type 2 diabetes mellitus with hyperlipidemia (CMS/HCC) (CMS/HCC) Apply 1 each topically every 15 days. Use to check blood sugar every 8 hours as directed. 2 each 025 Active busPIRone (Buspar) 10 MG tablet Take 10 mg by mouth 3 times daily. Active Blood Glucose Monitoring Suppl (AMEEStyle [place] Lite) w/Device kit USE DIRECTED 023 2024 [...] cleanup (will not trigger notification to Pharmacy)) busPIRone (Buspar) 15 MG tablet Take 15 mg by mouth 3 times daily. 024 2024 Discontinued(D ose adjustment) atorvastatin (Lipitor) 80 MG tabletIndication s:High cholesterol TAKE 1 TABLET BY MOUTH AT BEDTIME 90 tablet 1 024 2024 Discontinued potassium chloride CR (Klor-Con M20) 20 MEQ ER tablet TAKE 1 TABLET BY MOUTH TWICE DAILY IN THE MORNING AND IN THE EVENING WITH FOOD 180 tablet 1 024 2024 Discontinued Continuous Glucose Sensor (FreeStyle Jalil 2 Sensor) miscIndications: Type 2 diabetes mellitus with hyperlipidemia (CMS/HCC) ([facility]) Apply 1 sensor every 14 days 2 each 11 025 2024 Discontinued(A lternate therapy) traMADol (Ultram) 50 MG tabletIndication s:Cervicalgia TAKE [...] her family. She will continue services with [facility] for OP therapy and psychiatry services. clinician will be available if needed during next medical appointment. PLAN: (check all that apply) Continue with current services (defined as services in the past 12 months) . Pt is engaged with OP therapy and psychiatry services with [facility] @ [facility] Excessive attrition of teeth, generalized [...] her family. She will continue services with [facility] for OP therapy and psychiatry services. clinician will be available if needed during next medical appointment. PLAN: (check all that apply) Continue with current services (defined as services in the past 12 months) . Pt is engaged with OP therapy and psychiatry services with Ty @ [facility] Fibromyalgia 07/31/2022 Right foot pain [...] for possible plantar fasciitis -referred today to lvn x ongoing discomfort -may need orthopedic shoes [...] individual therapy and psychiatry with N at [facility]. Sees psych provider every two months and therapist bi-weekly. Pt will reach out to clinician as needed. Assessment & Plan (04/10/2023 11:08 AM EST): PLAN: (check all that apply) Behavioral Health Integration Plan Patient Self Plan Patient to reach out to [facility] team as needed Assessment & [...] healthy manner PLAN: 1. Follow up with [facility]: Not recommended for follow-up 2. Patient goal is: reduce anxiousness 3. Behavioral Recommendations a. Patient will comply with medication b. Patient may request to speak with a [facility] during next PCP visit, if needed Chronic [...] Encounters Date Type Department Care Team Description 05/07/[address] [address] Anthony Ruiz ANP Prior Authorization 05/04/[address] [address] Anhtony Ruiz ANP Prior Authorization 05/02/[address] [address] Anthony Ruiz ANP High cholesterol 04/29/[address] [address] Anthony Ruiz ANP Referral 04/29/2024 Travel 04/26/2024 Refill [facility] [address] [place] [address] Anthony Ruiz ANP Cervicalgia 04/23/2024 11:30 AM EST Clinical Support [address] [address] Azeb Hall, MARTIN Long-term current use of opiate analgesic 04/23/2024 Telephone [facility] [address] [place] [address] Azeb Hall, MARTIN 04/23/2024 Travel 04/21/2024 Telephone [facility] WALK-[facility] [address] [address] Chava Presley MD 04/20/2024 11:00 AM EST Office Visit [facility] [address] [address] Chava Presley MD Posterior chest pain (Primary Dx); Asthma-COPD overlap syndrome (CMS/HCC); Neck pain 04/20/2024 Orders Only [facility] [address] [place] [address] Chava Presley MD 04/15/2024 1:30 PM EST Office Visit [facility] MEDICINE [address] [place] [address] Anthony Ruiz ANP Umbilical hernia without obstruction and without gangrene (Primary Dx); Type 2 diabetes mellitus with hyperlipidemia (CMS/HCC) (CMS/HCC); Acute cough 04/15/2024 Travel 04/12/2024 Orders Only [facility] External Provider, [facility] 04/12/2024 Telephone [facility] MEDICINE [address] [place] [address] Anthony Ruiz ANP Chart Prep 04/06/2024 Telephone [facility] MED[facility] [address] [place] [phone] Anthony Ruiz ANP Nurse Triage 04/06/2024 Refill [facility] MED[facility] [address] [place] [phone] Anthony Ruiz ANP Severe persistent asthma without complication 04/02/2024 Refill [facility] [address] [place] [address] Anthony Ruiz ANP Neck pain 04/02/2024 Refill [facility] WALK-IN CENTER [address] [place] [phone] Anthony Ruiz ANP Essential hypertension; Chronic SI joint pain; Chronic bilateral low back pain, unspecified whether sciatica present 04/01/2024 Refill [facility] [address] [place] [address] Anthony Ruiz ANP Type 2 diabetes mellitus with hyperlipidemia (CMS/HCC) (CMS/HCC) (Primary Dx) 03/29/2024 Telephone [facility] MEDICINE [address] [place] [phone] Cnady Bains, RETAIL CLIENT MANAGER Follow-up 03/29/2024 Orders Only [facility] MEDICINE [address] [place] [phone] Anthony Ruiz ANP 03/28/2024 Refill [facility] [address] [place] [address] Anthony Ruiz ANP Cervicalgia 03/20/2024 Orders Only GENERIC EXTERNAL DATA DEPARTMENT Provider, Generic External Data 03/18/2024 Orders Only [facility] MEDICINE [address] [place] [phone] Waldo Rojas MD Essential hypertension (Primary Dx) 03/17/2024 1:30 PM EST Office Visit [address] [address] Anthony Ruiz ANP Type 2 diabetes mellitus with hyperlipidemia (CMS/HCC) (Primary Dx); Abscess 03/17/[address] [address] Anthony Ruiz ANP 03/17/2024 Travel 03/15/[address] [address] Candy Bains, MARTIN Paperwork/Forms 03/13/2024 Refill [facility] WALK-IN CENTER [address] [place] [address] Anthony Ruiz ANP Severe persistent asthma without complication 03/12/[address] [address] Anthony Ruiz ANP status check abscess 03/09/2024 Refill [facility] [address] [place] [address] Anthony Ruiz ANP Neck pain 03/03/2024 3:30 PM EST Office Visit [address] [address] Anthony Ruiz ANP Panniculitis affecting sacrum (Primary Dx); Abscess; Spondylosis of lumbar region without myelopathy or radiculopathy 03/03/2024 Travel 03/03/2024 Refill [facility] [address] [place] [phone] Anthony Ruiz ANP 03/02/[address] [address] Day Pool [place] chart prep 03/01/[address] [address] Anthony Ruiz ANP Durable Medical Equipment 03/01/2024 Refill [facility] [address] [place] [address] Anthony Ruiz ANP Cervicalgia 02/23/2024 2:00 PM EST Office Visit [facility] WALK-IN CENTER [address] [place] [phone] Marianna Manzo MD Panniculitis affecting sacrum (Primary Dx) 02/23/2024 Telephone [facility] MEDICINE [address] [place] [phone] Anthony Ruiz ANP Nurse Triage 02/20/[address] [address] Anthony Ruiz ANP Severe persistent asthma without complication 02/19/2024 Orders Only GENERIC EXTERNAL DATA DEPARTMENT Provider, Generic External Data 02/16/[address] [address] [place] March recall 02/16/[address] [address] Anthony Ruiz ANP Med Refill 02/15/2024 Refill [facility] [address] [place] [address] Anthony Ruiz ANP Healthcare maintenance; Neck pain 02/13/2024 11:00 AM EST Office Visit [facility] WALK-IN CENTER [address] [place] [address] Chava Presley MD Asthma-COPD overlap syndrome (CMS/HCC) (Primary Dx); COPD with asthma (CMS/HCC) 02/13/2024 Telephone [facility] MEDICINE [address] [place] [address] Anthony Ruiz ANP Med Refill 02/13/2024 Telephone [facility] WALK-IN CENTER [address] [place] [address] [phone] Vicenta Constantino RN [facility] triage ([facility]aw [facility] 02/03/24:/Assessment:/ Asthma-COPD overlap syndrome/ chronic obstructive pulmonary disease / Plan: /Well controlled on current regimen of Xolair, Advair, Combivent, and albuterol MDI. / Will treat acute bronchitic exacerbation with a course of Levaquin 750 mg PO DAILY 10 tabs 0RF / /) from Last 3 Months Immunizations Name Administration [...] 11:00 AM EDT Clinical Support [facility]IC[facility] [address] [place] [address] Azeb Hall, MARTIN [address] [place], [place] [phone] 07/15/2024 1:00 PM EDT Office Visit [facility] MEDICINE [address] [place] [address] Anthony Ruiz, ANP [address] [place] [address] 08/04/2024 10:00 AM EDT Medication Management [facility]IC[facility] [address] [place] [address] Yuri Pierre, PharmD [address] [place] [address] 08/04/2024 1:00 PM EDT Office Visit [facility] ADULT DENTAL [address] [place] [address] Nuvia Duarte [address] [place] [address] Health Maintenance Due Date Last Done Comments [...] VAGINOSIS PANEL Routine 02/19/2024 1:18 PM EST ALBUMIN, RANDOM URINE W/CREATININE Routine 01/02/2024 [...] - 04/23/2024 10:56 AM EST .UTOX cup Lot#[id number] Exp. 10/06/25 Internal Pass Control negative AMP, BAR, BUP, BZO, RENETTA, FTY, MDMA, MET, MOP, MTD, OXY, PCP, TCA, THC. us Anthony PAGE POINT OF CARE TEST ENTER/EDIT OR DERABLES Edited Result - Final * D Dimer High Sensitivity (04/20/2024 1:21 PM EST) D Dimer High Sensitivity 218 NG/ML [facility] Comment:D-DIMER HS REFERENCE RANGENote: [...] MD LAB BLOOD ORDERABLES Final Resul t [facility] [address] [place] [phone] * XR Chest 2 Views (04/20/2024 1:05 PM EST) Anatomical Region Laterality Modality Chest Radiographic Griselda ging 04/20/2024 1:05 PM EST Narrative 04/21/2024 9:57 AM EST ? [facility] ?[address] ?[place] [address] ?XRay Report ? Signed ? Patient: Avinash Ho,Nuvia E ?MR ?? #: [id number] ? : 1960 ?Acct:[id number] ? Age/Sex: 63 / F ?ADM Date: 03/04/25 ? Loc: HO.XRAY ? Attending Dr: Chava Presley MD ? Ordering Physician: CHAVA PRESLEY MD ?? Date of Service: 04/20/24 ?? Procedure(s): XR chest 2V ?? Accession Number(s): [id number] ? cc: CHAVA PRESLEY MD; ANTHONY RUIZ [...] DD/ 1305 ? TD/TT: 04/20/24 1310 ? Steward/Stewardess Deck: MSM ? Procedure Note Vinicius Frederick - 04/21/2024 [place] [address] XRay Report Signed Patient: Nuvia Fay EMR #: [id number] : 1Acct:[id number] Age/Sex: 63 / FADM Date: 04/20/24 Loc: ADRIA Attending Dr: Chava Presley MD Ordering Physician: CHAVA PRESLEY MD Date of Service: 04/20/24 Procedure(s): XR chest 2V Accession Number(s): [id number] cc: CHAVA PRESLEY MD; ANTHONY RUIZ NP [...] 04/21/24 0954 DD/ 1305 TD/TT: 04/20/24 1310 Steward/Stewardess Deck: [facility] Chava Presley MD IMG XR PROCEDURES Edited Result - Final * POCT Rapid Influenza B BAILEY ID NOW (04/15/2024 2:02 PM EST) Influenza B Negative Negative, Indeterminate [facility] QC Media Lot # [id number] [facility] Lot# Expiration Date [facility] Swab 04/15/2024 2:02 PM EST Anthony Ruiz ANP POINT OF CARE TEST ENTER/EDIT OR DERABLES Final Result [facility] [address] [place], [place] [phone] * POCT Rapid Covid-19 BinaxNOW (04/15/2024 2:01 PM EST) Rapid COVID Ag Negative QC Media Lot # [id number] Lot# Expiration Date Swab 04/15/2024 2:01 PM EST Anthony Ruiz ANP POINT OF CARE TEST ENTER/EDIT OR DERABLES Final Result * POCT Rapid Influenza A BAILEY ID NOW (04/15/2024 1:59 PM EST) Influenza A Negative Negative, Indeterminate [facility] QC Media Lot # [id number] [facility] Lot# Expiration Date [facility] Swab 04/15/2024 1:59 PM EST us Anthony PAGE POINT OF CARE TEST ENTER/EDIT OR DERABLES Edited Result - Final [facility] [address] [place] [address] [phone] * BI Mammogram Screening Tomosynthesis Bilateral (04/12/2024 1:48 PM EST) Anatomical Region Laterality Modality Breast Bilateral Mammography 04/12/2024 1:48 PM EST Narrative 04/17/2024 12:38 PM EST ? [facility] [place] ? [address] ?[place] [address] ? Mammography Report ? Signed ? Patient: Nuvia Fay ?MR ?? #: [id number] ? : 1960 ?Acct:[id number] ? Age/Sex: 63 / F ?ADM Date: 04/12/24 ? Loc: HO.MAMMO ? Attending Dr: Monica Lozano CNM ? Ordering Physician: Monica Lozano CNEstefania ?Results: 2Beni ?? gn Findings ? Date of Service: 04/12/24 ?Follow Up: 1 Year From Orig ?? inal Mammogram ? Procedure(s): MM tomosynthesis screening BI ?? Accession Number(s): [id number] ? cc: Monica Lozano CNM; ANTHONY RUIZ [...] DD/ 1348 ? TD/TT: 04/12/24 1405 ? Steward/Stewardess Deck: ? Procedure Note Otoniel, Image - 04/17/2024 [facility] [address] [place] [address] Dr. [place], [place] [address] Mammography Report Signed Patient: Nuvia Fay EMR #: [id number] : 1960cct:[id number] Age/Sex: 63 / FADM Date: 04/12/24 Loc: HO.MAMMO Attending Dr: Monica Lozano CNM Ordering Physician: Monica Lozano CNMResults: 2Beni gn Findings Date of Service: 04/12/24Follow Up: 1 Year From Orig inal Mammogram Procedure(s): MM tomosynthesis screening BI Accession Number(s): [id number] cc: Monica Lozano CNM; ANTHONY RUIZ NP [...] 04/17/24 1235 DD/ 1348 TD/TT: 04/12/24 1405 Steward/Stewardess Deck: [facility] External Provider IMG BI PROCEDURES Edited Result - Final * CT Abdomen Pelvis w/ Contrast (03/20/2024 7:20 PM EST) Anatomical Region Laterality Modality Body, Pelvis, Abdomen Computed T omography 03/20/2024 7:20 PM EST Narrative 03/20/2024 7:23 PM EST ? [facility] ?[address] ?[place] [address] ? CT Scan Report ? Signed ? Patient: Avinash Gamezon,Nuvia E ?MR ?? #: [id number] ? : 1960 ?Acct:[id number] ? Age/Sex: 63 / F ?ADM Date: //25 ? Loc: HO.ED ? Attending Dr: ? Ordering Physician: Maritza Mckeon ?? Date of Service: 03/20/24 ?? Procedure(s): CT abdomen pelvis w IV con ?? Accession Number(s): [id number] ? cc: Maritza Mckeon; ANTHONY RUIZ NP ? Report Number: ?? [id number]: Total DLP = ??844.00 mGy-cm ? CLINICAL HISTORY: abdominal wall cellulitis ?? abscess ? CT abdomen and pelvis with contrast ? Comparison: CT/NC/SR - CT ABDOMEN WO/W IV CON - [...] ? DD/ 19 ? TD/TT: 03/20/241919 ? Steward/Stewardess Deck: ? Procedure Note Donotuseinterpreter, Image - 03/20/[address] [address] [address] Scan Report Signed Patient: Nuvia Fay EMR #: [id number] : 1Acct:[id number] Age/Sex: 63 / FADM Date: 03/20/24 Loc: HO.ED Attending Dr: Ordering Physician: Maritza Mckeon Date of Service: 03/20/24 Procedure(s): CT abdomen pelvis w IV con Accession Number(s): [id number] cc: Maritza Mckeon; ANTHONY RUIZ NP Report Number: [id number]: Total DLP = 844.00 mGy-cm CLINICAL HISTORY: abdominal wall cellulitis abscess CT abdomen and pelvis with contrast Comparison: CT/NC/SR - CT ABDOMEN WO/W IV CON - [...] in OV> 03/20/241921 DD/ 19 TD/TT: 03/20/241919 Steward/Stewardess Deck: [facility] External Provider IMG CT PROCEDURES Edited Result - Final * (ABNORMAL) Glucose, Whole Blood (03/20/2024 5:01 PM EST) Only the most recent of2 resultswithin the time period is included. Pathologist [facility] Glucose, Whole Blood 163(H) 60 - 115 mg/dL [facility] Comment:METER #: [id number] 03/20/2024 5:01 PM EST 03/20/2024 5:05 PM EST Generic External Data Provider LAB BLOOD ORDERAB LES Final Result [facility] [address] [place] [phone] * (ABNORMAL) CBC auto differential (03/20/2024 2:28 PM EST) [facility] White Blood Count 6.8 4.8 - 10.8 X10*3/uL [facility] Red Blood Count 4.08(L) 4.20 - 5.50 X10*6/uL [facility] Hemoglobin 13.0 12.0 - 16.0 g/dl [facility] Hematocrit 38.0 37.0 - 47.0 % [facility] Mean Corpuscular Volume 93.1 80.0 - 98.0 fL [facility] Mean Corpuscular Hemoglobin 31.9 27.0 - 33.0 pg [facility] Mean Corpuscular HGB Conc 34.2 31.0 - 35.0 g/dl [facility] Red Cell Distribution Width 14.1 11.0 - 16.0 % [facility] Platelet Count 280 160 - 400 X10*3/uL [facility] Mean Platelet Volume 9.2(L) 9.4 - 12.3 fL [facility] Neutrophils Percent Auto 53.1 45 - 73 % [facility] Imm Gran Pct Auto 0.1 0.0 - 0.4 % [facility] Lymphocytes Percent Auto 36.2 20 - 40 % [facility] Monocytes Percent Auto 7.9 2 - 11 % [facility] Eosinophils Percent Auto 2.4 0 - 4 % [facility] Basophils Percent Auto 0.3 0 - 2 % [facility] NRBC Pct Auto 0.0 0.0 - 0.2 /100WBC [facility] Neutrophils Absolute Auto 3.6 2.0 - 8.3 x10*3/uL [facility] Imm Gran Abs Auto 0.01 0.00 - 0.03 X10*3/uL [facility] Lymphocytes Absolute Auto 2.5 1.2 - 4.9 X10*3/uL [facility] Monocytes Absolute Auto 0.5 0.1 - 1.2 X10*3/uL [facility] Eosinophils Absolute Auto 0.2 0.0 - 0.4 X10*3/uL [facility] Basophils Absolute Auto 0.0 0.0 - 0.2 X10*3/uL [facility] NRBC Abs Auto 0.000 0.0 - 0.012 X10*3/uL [facility] 03/20/2024 2:28 PM EST 03/20/2024 2:33 PM EST us Generic External Data Provider LAB BLOOD ORDERAB LES Final Result [facility] [address] [place] [address] [phone] * (ABNORMAL) Sed Rate by Juan Francisco Murphy (03/20/2024 2:28 PM EST) Erythrocyte Sedimentation Rate 46(H) 0 - 20 MM/HR [facility] Comment:Patients with polycy themia and many hemoglobin abnormalitiesmay have depressed sed rates whereas patients with anemiamay have elevated sed rates. 03/20/2024 2:28 PM EST 03/20/2024 2:58 PM EST us Generic External Data Provider LAB BLOOD ORDERAB LES Final Result Performing Organization Address [facility] Phone Number [facility] [address] [place] [phone] * (ABNORMAL) C-reactive Protein (03/20/2024 2:28 PM EST) C Reactive Protein 3.90(H) < or = 0.50 mg/dL [facility] 03/20/2024 2:28 PM EST 03/20/2024 2:33 PM EST us Generic External Data Provider LAB BLOOD ORDERAB LES Final Result Performing Organization Address [facility] Number [facility] [address] [place] [phone] * Magnesium (03/20/2024 2:28 PM EST) Magnesium 2.2 1.6 - 2.6 mg/dL [facility] 03/20/2024 2:28 PM EST 03/20/2024 2:33 PM EST us Generic External Data Provider LAB BLOOD ORDERAB LES Final Result Performing Organization Address [facility] Phone Number [facility] [address] [place] [phone] * Lipase (03/20/2024 2:28 PM EST) Lipase 16 8 - 78 U/L [facility] 03/20/2024 2:28 PM EST 03/20/2024 2:33 PM EST us Generic External Data Provider LAB BLOOD ORDERAB LES Final Result [facility] [address] [place] [address] [phone] * Lactic Acid (03/20/2024 2:28 PM EST) Pathologist [facility] Lactic Acid 0.8 0.5 - 2.0 mmol/L [facility] 03/20/2024 2:28 PM EST 03/20/2024 2:33 PM EST Generic External Data Provider LAB BLOOD ORDERAB LES Final Result Performing Organization Address [facility] Co de Phone Number [facility] [address] [place] [phone] * (ABNORMAL) Hepatic Function Panel (03/20/2024 2:28 PM EST) Pathologist [facility] Bilirubin, Total 0.4 0.0 - 1.0 mg/dL [facility] Bilirubin, Direct 0.2 0.0 - 0.5 mg/dL [facility] Aspartate Amino Transferase 173(H) 5 - 31 U/L [facility] Alanine Aminotransferase 249(H) 0 - 31 U/L [facility] Total Protein 7.8 6.5 - 8.0 g/dL [facility] Albumin Level 3.8 3.5 - 5.0 g/dL [facility] Alkaline Phosphatase 138(H) 39 - 117 U/L [facility] 03/20/2024 2:28 PM EST 03/20/2024 2:33 PM EST us Generic External Data Provider LAB BLOOD ORDERAB LES Final Result Performing Organization Address City/[facility]/ZIP Co de Phone Number [facility] [address] [place] [phone] * (ABNORMAL) Basic Metabolic Panel (03/20/2024 2:28 PM EST) Pathologist [facility] Sodium 143 135 - 145 mmol/L [facility] Potassium 3.7 3.3 - 5.1 mmol/L [facility] Chloride 112(H) 96 - 108 mmol/L [facility] Carbon Dioxide 23 22 - 29 mmol/L [facility] Anion Gap 12 12 - 20 [facility] Urea Nitrogen (BUN) 13 9 - 16 mg/dL [facility] Creatinine, Serum 0.82 0.5 - 1.4 mg/dL [facility] Creatinine Clr Calc Pharmacy 73.7 [facility] Comment:Provided height and weight: 157.48 cm,91.172 kg.eGFR (calculated from the MDRD study equation) and eCrCl(calculated from the Cockcroft-Gault equation) are based ondifferent parameters and may not yield comparable results.If eCrCl result is absurd, please check patient'sheight/weight. Estimated Glomerular Filt Rate >60 [facility] Comment:Chronic Kidney Disea se: Estimated GFR < 60 mL/min/1.25c6Arymww Kidney Disease: Estimated GFR < 15 mL/min/1.73m2 Glucose 112 60 - 115 mg/dL [facility] Calcium 8.7 8.4 - 10.2 mg/dL [facility] 03/20/2024 2:28 PM EST 03/20/2024 2:33 PM EST us Generic External Data Provider LAB BLOOD ORDERAB LES Final Result Performing Organization Address City/State/[facility] Co de Phone Number [facility] [address] [place] [phone] * XR Chest 1 View (02/29/2024 1:36 PM EST) Anatomical Region Laterality Modality Chest Radiographic Griselda ging 02/29/2024 1:36 PM EST Narrative 02/29/2024 1:38 PM EST ? [facility] ?[address] ?[place] [address] ?XRay Report ? Signed ? Patient: Avinash Ho,Nuvia E ?MR ?? #: [id number] ? : 1960 ?Acct:[id number] ? Age/Sex: 63 / F ?ADM Date: 01/12/25 ? Loc: HO.ED ? Attending Dr: ? Ordering Physician: Kourtney Jones MD ?? Date of Service: 02/29/24 ?? Procedure(s): XR chest 1V ?? Accession Number(s): [id number] ? cc: Kourtney Jones MD; ANTHONY RUIZ [...] 02/29/24 1337 ? DD/ 1336 ? TD/TT: 02/29/246 ? Steward/Stewardess Deck: ? Procedure Note Martitazane, Image - 02/29/[address] [address] XRay Report Signed Patient: Nuvia Fay EMR #: [id number] : 1960cct:[id number] Age/Sex: 63 / FADM Date: 02/29/24 Loc: HO.ED Attending Dr: Ordering Physician: Kourtney Jones MD Date of Service: 02/29/24 Procedure(s): XR chest 1V Accession Number(s): [id number] cc: Kourtney Jones MD; ANTHONY RUIZ NP [...] in OV> 02/29/24 1337 DD/ 1336 TD/TT: 02/29/241335 Steward/Stewardess Deck: [facility] External Provider IMG XR PROCEDURES Edited Result - Final * Bacterial Vaginosis (02/19/2024 1:18 PM EST) TRICHOMONAS VAGINALIS DETECTION BY PCR NOT DETECTED Not Detect [facility] BACTERIAL VAGINOSIS DETECTION BY PCR NEGATIVE Negative [facility] Comment:The BV organism targ ets of [...] DETECTION BY PCR NOT DETECTED Not Detect [facility] Eufemia glab krusei PCR NOT DETECTED Not Detect [facility] 02/19/2024 1:18 PM EST 02/19/2024 3:45 PM EST Generic External Data Provider LAB MICROBIOLOGY - GENERAL ORDERABLES Final Result Performing Organization Address City/State/[facility] Co de Phone Number [facility] [address] [place] [phone] * Albumin, Random Urine W/Creatinine (01/02/2024 8:44 AM EST) Creatinine, Urine 47.20 mg/dL [facility] Microalbumin Urine 7.0 mg/L [facility] Microalbum Creatinine Ratio Ur 14.8 <30 ug/mg cr [facility] Comment:Albumin/Creatinine R atio Reference Ranges: Normal: < 30 ug/mg creatinine Microalbuminuria: 30 - 300 ug/mg creatinineClinical Albuminuria: > 300 ug/mg creatinine Urine (Urine, Random) 01/02/2024 8:44 AM EST 01/02/2024 11:09 AM EST us Anthony PAGE LAB URINE ORDERABLES Final Resul t Performing Organization Address [facility] Co de Phone Number [facility] [address] [place] [phone] * (ABNORMAL) Hemoglobin A1c (01/02/2024 8:44 AM EST) Hemoglobin A1c 6.6(H) <6.0 % [facility] Comment:Hemoglobin A1C Refer ence Range Adults: 4.8 - 6.0 % Non diabetic: < 6.0 % Goal: < 7.0 %Additional Action Suggested: > 8.0 %Note: Hemoglobin A1c results are invalid for patients with abnormal amounts of HbF. Blood transfusions may impact the HbA1c concentration in the patient sample. Estimated Average Glucose 143 mg/dL [facility] Comment:eAG = Estimated ave rage glucose which is %A1C expressed asaverage glucose, using the formula of the T2L-LguotqwLuolsll Glucose study (ADAG), Diabetes Care, Vol.31,#8,2007 01/02/2024 8:44 AM EST 01/02/2024 11:03 AM EST [facility] External Data Provider LAB BLOOD ORDERAB LES Final Result Performing Organization Address City/[facility]/ZIP Co de Phone Number [facility] [address] [place] [phone] * Lipid Panel, Standard (01/02/2024 8:44 AM EST) Triglycerides 93 <150 mg/dL [facility] Comment:Desirable Triglyceri de: less than 150 mg/dLBorderline High Triglyceride 150-199 mg/dLHigh Triglyceride: 200-499 mg/dLVery High Triglyceride: greater than or equal to 5OO mg/dL Cholesterol 177 <200 mg/dL [facility] Comment:Desirable Cholestero l: less than 200 mg/dLBorderline High Cholesterol: 200-239 mg/dLHigh Cholesterol: greater than 239 mg/dL LDL Cholesterol Calculated 90 <100 mg/dL [facility] Comment:Desirable LDL: less than 100 mg/dLNear Optimal/Above Optimal LDL: 110- 129 mg/dLBorderline High LDL: 130-159 mg/dLHigh LDL: 160-189 mg/dLVery High LDL: greater than or equal to 190 mg/dL HDL Cholesterol 69 >40 mg/dL [facility] Comment:Desirable HDL: great er than 40 mg/dL Note: This HDL assay may give artificially low results in patients with liver disease. 01/02/2024 8:44 AM EST 01/02/2024 11:03 AM EST us Generic External Data Provider LAB BLOOD ORDERAB LES Final Result [facility] [address] [place] [phone] * (ABNORMAL) Hm Colonoscopy (12/27/2021) Colonoscopy Abnormal(A ) Normal Historical Provider HEALTH MAINTENANCE Final Result * HPV E6/E7 RFLX ALFRED 16 18/45 (05/09/2020 11:19 AM EDT) HPV mRNA E6/E7 rflx Not Detected Not Detected [facility] Comment: Methodology: Fire Inspector-Mediated Amplification This assay detects E6/E7 viral messenger RNA (mRNA) from 14 high-risk HPV types (16,18,31,33,35,39,45,51,52,56,58,59,66,68). The analytical performance characteristics of this assay have been determined by [employer]. The modifications have not been cleared or approved by the FDA. This assay has been validated pursuant to the CLIA regulations and is used for clinical purposes. For additional information, please refer to http://education.[employer]/faq/CTD184e3 (This link if provided for information/ educational purposes only.) THIS TEST WAS PERFORMED AT: [facility] [address] [place] [address] [address] [place], [place] ??[phone] HERNAN WARREN MD 05/09/2020 11:1 9 AM EDT us Yohana Lu HISTORICAL/NON ORDERABLE LABS Fi nal Result [facility] [address] [place] [address], from Last 3 Months or Most Recently Relevant to Health Maintenance Insurance [facility] * Guarantor: Nuvia Fay Account Type Relation to Patient Date of Phone Billing Address Personal/Family Self [place], [place] Care Teams Sign Designer Relationship Specialty Start Date End Date Anthony Ruiz ANP [address] [place] [address] PCP - General Family Medicine 09/23/19 Yuri Pierre, Dileep [address] [place] [address] Pharmacist Internal Medicine 05/05/24
--- OUTSIDE RECORDS SUMMARY | 2024-05-11 13:28 | XMS_ITS | Encounter Summary ---
Author Organization [facility] Address [address] [facility] 7t [place] [address] Care Team Providers Care Flight Attendant/Inflight Supervisor Name Role Phone Sariah Vickers Primary Care Provider [phone] Reason for Visit * Reason Comments Follow-up Encounter Details Date Type Department Care Team (Latest Contact Info) Description 04/15/2024 1:30 PM EST Office Visit [facility] [address] [place], [place] [phone] Sariah Vickers ANP [address] [place] [address] Umbilical hernia without obstruction and without gangrene [...] EDT Clinical Support [facility] [address] [place] [address] Azeb Hall RN [address] [place] [address] 07/15/2024 1:00 PM EDT Office Visit [facility] [address] [place] [address] Sariah Vickers ANP [address] [place] [address] 08/04/2024 10:00 AM EDT Medication Management [facility] [address] [place] [address] Yuri Pierre PharmD [address] [place] [address] 08/04/2024 1:00 PM EDT Office Visit [facility] [address] [place] [address] Brendan Duartearis [address] [place] [address] documented as of this encounter Goals Goal [...] PM EST) Influenza B Negative Negative, Indeterminate [facility] QC Media Lot # [id number] [facility] Lot# Expiration Date , [facility] Swab 04/15/2024 2:02 PM EST [facility] POINT OF CARE TEST ENTER/EDIT OR DERABLES Final Result [facility] [address] [place] [address] [phone] * POCT Rapid Covid-19 BinaxNOW (04/15/2024 2:01 PM EST) Rapid COVID Ag Negative QC Media Lot # [id number] Lot# Expiration Date ,026 Swab 04/15/2024 2:01 PM EST Sariah Vickers ANP POINT OF CARE TEST ENTER/EDIT OR DERABLES Final Result * POCT Rapid Influenza A BAILEY ID NOW (04/15/2024 1:59 PM EST) Influenza A Negative Negative, Indeterminate [facility] QC Media Lot # [id number] [facility] Lot# Expiration Date , [facility] Swab 04/15/2024 1:59 PM EST Sariah Vickers ANP POINT OF CARE TEST ENTER/EDIT OR DERABLES Edited Result - Final Performing Organization Address City/[facility]/ZIP Co de Phone Number [facility] [address] [place] [phone] [phone] documented in this encounter Visit Diagnoses Diagnosis Umbilical hernia without obstruction and without gangrene- Primary Type 2 diabetes mellitus with hyperlipidemia (CMS/HCC) ([facility]/HCC) Acute cough documented in this encounter Additional Health Concerns Assessment Noted Time PHQ-9 Depression Total Score: 12 024 2:58 PM EDT documented as of this encounter Care Teams Flight Attendant/Inflight Supervisor Relationship Specialty Start Date End Date Sariah Vickers ANP [address] [place] [address] PCP - General Family Medicine 09/23/19 documented as of this encounter
--- OUTSIDE RECORDS SUMMARY | 2024-05-11 13:28 | XMS_ITS | Encounter Summary ---
Author Organization [employer] Address [address] [facility] 7t [place] [address] Care Team Providers Care Rehab Services Aide Name Role Phone Anthony Ruiz Primary Care Provider Reason for Visit * Reason Comments lung pain Shortness of Breath Encounter Details Date Type Department Care Team ([facility] st Contact Info) Description 04/20/2024 11:00 AM EST Office Visit [facility] [address] [place] [address] Chava Presley MD [address] [place] [address] Posterior chest pain (Primary Dx); Asthma-COPD overlap [...] Nuvia Ho is a 63 y.o. female. 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 HPI Nuvia had onset 6-7 days ago of knife-like and pressure pain in right posterior chest, worse with inspiration, movements of torso and right UE. Has associated SOB. Has associated cough, wheezing at night, occasional chills. No fever or hemoptysis. Had neg rapid covid and flu tests at [facility] 04/15/2024. Tylenol helps a little. Using Duoneb, Singulair, Fluticasone-Salmeterol 250-50 MCG/ACT aerosol powder Followed by [facility] Trou[facility] Dr. Preciado at [facility]. Lives with son. Former smoker. Not employed. [...] EDT Clinical Support [facility] [address] [place] [address] Azeb Hall, RN [address] [place] [address] 07/15/2024 1:00 PM EDT Office Visit [facility] [address] [place] [address] Anthony Ruiz ANP [address] [place] [address] 08/04/2024 10:00 AM EDT Medication Management [facility] [address] [place] [address] Yuri Pierre, PharmD [address] [place] [address] 08/04/2024 1:00 PM EDT Office Visit [facility] [address] [place] [address] Nuvia Duarte [address] [place] [address] Scheduled Orders Name Type Priority Associated Diagnoses Orde r Schedule D-Dimer, Quantitative Lab Routine Posterior chest pain Expected: 04/20/2024 (Approximate), Expires: 04/20/2025 documented as of this encounter Goals Goal Patient Goal Type Associated Problems Recent Progress Patient-Stated? Author Blood Pressure < 140/90 Blood Pressure 136/88(2024 11:28 AM EDT) No PhanisAida Cheng, PharmD Record Your Blood [...] EST Narrative 04/21/2024 9:57 AM EST ? [facility] ?[address] ?[place] [address] ?XRay Report ? Signed ? Patient: Avinash Ho,Nuvia E ?MR ?? #: [id number] ? : 1960 ?Acct:[id number] ? Age/Sex: 63 / F ?ADM Date: 03/04/25 ? Loc: HO.XRAY ? Attending : Chava Presley MD ? Ordering Physician: CHAVA PRESLEY MD ?? Date of Service: 04/20/24 ?? Procedure(s): XR chest 2V ?? Accession Number(s): [id number] ? cc: CHAVA PRESLEY MD; ANTHONY RUIZ [...] DD/ 1305 ? TD/TT: 04/20/24 1310 ? [employer] Teacher: MSM ? Procedure Note Donconnerter, Image - 04/21/[address] [address] XRay Report Signed Patient: Nuvia Fay EMR #: [id number] : 1960cct:[id number] Age/Sex: 63 / FADM Date: 04/20/24 Loc: HO.PAVANAY Attending Dr: Chava Presley MD Ordering Physician: CHAVA PRESLEY MD Date of Service: 04/20/24 Procedure(s): XR chest 2V Accession Number(s): [id number] cc: CHAVA PRESLEY MD; ANTHONY RUIZ NP [...] 04/21/24 0954 DD/ 1305 TD/TT: 04/20/24 1310 [employer] Teacher: MSM us Chava Presley MD IMG XR PROCEDURES Edited Result - Final documented in this encounter Visit Diagnoses Diagnosis Posterior chest pain- Primary Asthma-COPD overlap syndrome (CMS/HCC) Neck pain Cervicalgia documented in this encounter Additional Health Concerns Assessment Noted Time PHQ-9 Depression Total Score: 12 024 2:58 PM EDT documented as of this encounter Care Teams Rehab Services Aide Relationship Specialty Start Date End Date Anthony Ruiz ANP [address] [place] [address] PCP - General Family Medicine 09/23/19 documented as of this encounter
--- OUTSIDE RECORDS SUMMARY | 2024-05-11 13:28 | XMS_ITS | Encounter Summary ---
Author Organization [employer] Address [address] [facility] 7t [place] [address] Care Team Providers Care Syrup Mixer Helper Name Role Phone Sariah Vickers Primary Care Provider [phone] Encounter Details Date Type Department Care Team [...] Description 07/02/2024 11:00 AM EDT Clinical Support [address] [address] Azeb Hall, MARTIN [address] [place] [address] 07/15/2024 1:00 PM EDT Office Visit [address] [address] Sariah Vickers ANP [address] [place] [address] 08/04/2024 10:00 AM EDT Medication Management [address] [address] Yuri Pierre PharmD [address] [place] [address] 08/04/2024 1:00 PM EDT Office Visit [facility] [address] [place] [address] Nuvia Duarte [address] [place] [address] documented as of this encounter Goals Goal [...] documented as of this encounter Care Teams Syrup Mixer Helper Relationship Specialty Start Date End Date Sariah Vickers ANP [address] [place] [address] PCP - General Family Medicine 09/23/19 documented as of this encounter
--- OUTSIDE RECORDS SUMMARY | 2024-05-11 13:29 | XMS_ITS | Encounter Summary ---
Author Organization [facility] Address [address] [facility] 7t [place] [address] Care Team Providers Care Bleach Analyst Name Role Phone Sariah Vickers Primary Care Provider [phone] Yuri Pierre PharmD Unavailable [phone] Reason for Visit * Reason Onset Date Comments Referral 05/17/2022 Encounter Details Date Type Department Care Team ([facility] st Contact Info) Description 05/17/2022 Telephone [facility] [address] [place] [address] Sariah Vickers ANP [address] [place] [address] Referral Social History Tobacco Use Types Packs/Day [...] guide to vertigo. Please contact pt at [phone] documented in this encounter Plan of Treatment Upcoming Encounters Date Type Department Care Team (Late st Contact Info) Description 07/02/2024 11:00 AM EDT Clinical Support [address] [address] Azeb Hall, RN [address] [place] [address] 07/15/2024 1:00 PM EDT Office Visit [address] [address] Sariah Vickers ANP [address] [place] [address] 08/04/2024 10:00 AM EDT Medication Management [address] [address] Yuri Pierre, Dileep [address] [place] [address] 08/04/2024 1:00 PM EDT Office Visit [facility] [address] [place] [address] Felicia, Nuvia [address] [place] [address] documented as of this encounter Visit Diagnoses Not on filedocumented in this encounter Care Teams Bleach Analyst Relationship Specialty Start Date End Date Sariah Vickers ANP [address] [place] [address] PCP - General Family Medicine 09/23/19 Yuri Pierre, PharmD [address] [place] [address] Pharmacist Internal Medicine 05/05/24 documented as of this encounter
--- OUTSIDE RECORDS SUMMARY | 2024-05-11 13:29 | XMS_ITS | Encounter Summary ---
Author Organization [employer] Address [address] [facility] 7t [place] [address] Care Team Providers Care Insurance Sales Assistant Name Role Phone Sariah Vickers Primary Care Provider [phone] Yuri Pierre PharmD Unavailable [phone] Reason for Visit * Reason Onset Date Comments Med Refill 03/04/2023 Encounter Details Date Type Department Care Team (Late st Contact Info) Description 03/04/2023 Telephone [facility] [address] [place], [place] [phone] Sariah Vickers ANP [address] [place] [address] Med Refill Social History Tobacco Use Types [...] 50 MG tablet To be sent to: [facility] [place], [place] - [address] [place] [address] documented in this encounter Plan of Treatment Upcoming Encounters Date Type Department Care Team (Late st Contact Info) Description 07/02/2024 11:00 AM EDT Clinical Support [facility] [address] [place] [address] Azeb Hall, MARTIN [address] [place] [address] 07/15/2024 1:00 PM EDT Office Visit [facility] [address] [place] [address] Sariah Vickers, ANP [address] [place] [address] 08/04/2024 10:00 AM EDT Medication Management [facility] [address] [place] [address] Yuri Pierre, PharmD [address] [place] [address] 08/04/2024 1:00 PM EDT Office Visit [facility] [address] [place] [address], [place] [address] Nuvia Duarte [address] [place] [address] documented as of this encounter Goals Goal [...] on filedocumented in this encounter Care Teams Insurance Sales Assistant Relationship Specialty Start Date End Date Sariah Vickers ANP [address] [place] [address] PCP - General Family Medicine 09/23/19 Yuri Pierre, MikeD [address] [place] [address] Pharmacist Internal Medicine 05/05/24 documented as of this encounter
--- OUTSIDE RECORDS SUMMARY | 2024-05-11 13:29 | XMS_ITS | Encounter Summary ---
Author Organization [employer] Address [address] [facility] 7t [place] [address] Care Team Providers Care Supervisor Stave Cutting Name Role Phone Sariah Vickers Primary Care Provider [phone] Yuri Pierre PharmD Unavailable [phone] Reason for Visit * Reason Comments Med Refill Encounter Details Date Type Department Care Team ([facility] st Contact Info) Description 05/09/2023 Refill [facility] [address] [place], [place] [phone] Sariah Vickers ANP [address] [place] [address] High cholesterol Social History Tobacco Use Types [...] Description 07/02/2024 11:00 AM EDT Clinical Support [address] [address] Azeb Hall, RN [address] [place] [address] 07/15/2024 1:00 PM EDT Office Visit [address] [address] Sariah Vickers, KAYLEE [address] [place] [address] 08/04/2024 10:00 AM EDT Medication Management [address] [address] Yuri Pierre, MikeD [address] [place] [address] 08/04/2024 1:00 PM EDT Office Visit [facility] [address] [place] [address] Nuvia Duarte [address] [place] [address] documented as of this encounter Goals Goal [...] hypercholesterolemia documented in this encounter Care Teams Supervisor Stave Cutting Relationship Specialty Start Date End Date Sariah Vickers ANP [address] [place] [address] PCP - General Family Medicine 09/23/19 Yuri Pierre, Dileep [address] [place] [address] Pharmacist Internal Medicine 05/05/24 documented as of this encounter
--- OUTSIDE RECORDS SUMMARY | 2024-05-11 13:29 | XMS_ITS | Encounter Summary ---
Author Organization [employer] Address [address] [facility] 7t [place] [address] Care Team Providers Care Equipment Installer Name Role Phone Sariah Vickers Primary Care Provider [phone] Yuri Pierre PharmD Unavailable [phone] Reason for Visit * Reason Comments Med Refill Encounter Details Date Type Department Care Team ([facility] st Contact Info) Description 02/28/2023 Refill [facility] [address] [place], [place] [phone] Sariah Vickers ANP [address] [place] [address] Cervicalgia Social History Tobacco Use Types Packs/Day [...] Description 07/02/2024 11:00 AM EDT Clinical Support [address] [address] Azeb Hall, RN [address] [place] [address] 07/15/2024 1:00 PM EDT Office Visit [address] [address] Sariah Vickers, KAYLEE [address] [place] [address] 08/04/2024 10:00 AM EDT Medication Management [address] [address] Yuri Pierre, MikeD [address] [place] [address] 08/04/2024 1:00 PM EDT Office Visit [facility] [address] [place] [address] Nuvia Duarte [address] [place] [address] documented as of this encounter Goals Goal [...] Cervicalgia documented in this encounter Care Teams Equipment Installer Relationship Specialty Start Date End Date Sariah Vickers ANP [address] [place] [address] PCP - General Family Medicine 09/23/19 Yuri Pierre PharmD [address] [place] [address] Pharmacist Internal Medicine 05/05/24 documented as of this encounter
--- OUTSIDE RECORDS SUMMARY | 2024-05-11 13:29 | XMS_ITS | Encounter Summary ---
Author Organization [facility] Address 75 [facility] 7t [place] [address] Care Team Providers Care Byproducts Maker Name Role Phone Sariah Vickers Primary Care Provider [phone] Yuri Pirere PharmD Unavailable Reason for Visit * Reason Comments Med Refill Encounter Details Date Type Department Care Team ([facility] Contact Info) Description 07/17/2022 Refill [facility] 230 [place] [address] Sariah Vickers ANP 230 [place] [address] Neck pain Social History Tobacco Use Types Packs/Day Years Used Date Smoking Tobacco: Former Cigarettes 2016 Passive Smoke Exposure: Past Smokeless Tobacco: [...] EDT Clinical Support [facility] [address] [place] [address] Azeb Hall, RN 505 [place] [address] 07/15/2024 1:00 PM EDT Office Visit [facility] [address] [place] [address] Sariah Vickers ANP 230 [place] [address] 08/04/2024 10:00 AM EDT Medication Management [address] [address] Yuri Pierre PharmD [address] [place] [address] 08/04/2024 1:00 PM EDT Office Visit [facility] ADULT D[facility]AL 230 [place] [address] Brendan Duartearis 230 [place] [address] documented as of this encounter Visit Diagnoses Diagnosis Neck pain Cervicalgia documented in this encounter Care Teams Byproducts Maker Relationship Specialty Start Date End Date Sariah Vickers ANP [address] [place] [address] PCP - General Family Medicine 09/23/19 Yuri Pierre, Dileep [address] [place] [address] Pharmacist Internal Medicine 05/05/24 documented as of this encounter
--- OUTSIDE RECORDS SUMMARY | 2024-05-11 13:29 | XMS_ITS | Encounter Summary ---
Author Organization [employer] Address 75 [facility] 7t [place] [address] Care Team Providers Care Hydraulic Design Engineer Name Role Phone Sariah Vickers Primary Care Provider [phone] Yuri Pierre PharmD Unavailable Reason for Visit * Reason Comments Med Refill Encounter Details Date Type Department Care Team ([facility] st Contact Info) Description 05/21/2023 Refill [facility] 230 [place], [place] [phone] Sariah Vickers ANP 230 [place] [address] Neck pain Social History Tobacco Use Types [...] 11:00 AM EDT Clinical Support [facility] [address] [place] [address] Azeb Hall, RN 505 [place] [address] 07/15/2024 1:00 PM EDT Office Visit [facility] [address] [place] [address] Sariah Vickers, ANP 230 [place] [address] 08/04/2024 10:00 AM EDT Medication Management [facility] [address] [place] [place] [address] Yuri Pierre, PharmD [address] [place] [address] 08/04/2024 1:00 PM EDT Office Visit [facility] ADULT DENTAL [address] [place] [address] Nuvia Duarte 230 [place] [address] documented as of this encounter Goals Goal [...] Cervicalgia documented in this encounter Care Teams Hydraulic Design Engineer Relationship Specialty Start Date End Date Sariah Vickers ANP 230 [place] [address] PCP - General Family Medicine 09/23/19 Yuri Pierre PharmD 230 [place] [address] Pharmacist Internal Medicine 05/05/24 documented as of this encounter
--- OUTSIDE RECORDS SUMMARY | 2024-05-11 13:29 | XMS_ITS | Encounter Summary ---
Author Organization [email or web address] Address 75 [facility] 7t [place] [address] Care Team Providers Care Associate Music Professor Name Role Phone Sariah Vickers Primary Care Provider [phone] Yuri Pierre PharmD Unavailable [phone] Reason for Visit * Reason Comments Med Refill Encounter Details Date Type Department Care Team ([facility] st Contact Info) Description 03/07/2023 Refill [facility] 230 [place], [place] [phone] Sariah Vickers ANP 230 [place] [address] Vertigo Social History Tobacco Use Types Packs/Day [...] Description 07/02/2024 11:00 AM EDT Clinical Support [address] [address] Azeb Hall, RN 505 [place] [address] 07/15/2024 1:00 PM EDT Office Visit [address] [address] Sariah Vickers, KAYLEE 230 [place] [address] 08/04/2024 10:00 AM EDT Medication Management [address] [address] Yuri Pierre, MikeD [address] [place] [address] 08/04/2024 1:00 PM EDT Office Visit [facility] ADULT DENTAL [address] [place] [address] Nuvia Duarte 230 [place] [address] documented as of this encounter Goals Goal [...] giddiness documented in this encounter Care Teams Associate Music Professor Relationship Specialty Start Date End Date Sariah Vickers ANP 230 [place] [address] PCP - General Family Medicine 09/23/19 Yuri Pierre, Dileep 230 [place] [address] Pharmacist Internal Medicine 05/05/24 documented as of this encounter
--- OUTSIDE RECORDS SUMMARY | 2024-05-11 13:29 | XMS_ITS | Encounter Summary ---
Author Organization [facility] Address 75 [facility] 7t [place] [address] Care Team Providers Care Catering Chef Name Role Phone Sariah Vickers Primary Care Provider [phone] Yuri Pierre PharmD Unavailable [phone] Reason for Visit * Reason Comments Med Refill Encounter Details Date Type Department Care Team ([facility] st Contact Info) Description 06/30/2023 Refill [facility] 230 [place], [place] [phone] Sariah Vickers ANP 230 [place] [address] Neck pain Social History Tobacco Use Types [...] AM EDT Clinical Support [facility] [address] [place] [address] Azeb Hall RN 505 [place] [address] 07/15/2024 1:00 PM EDT Office Visit [facility] [address] [place] [address] Sariah Vickers, ANP 230 [place] [address] 08/04/2024 10:00 AM EDT Medication Management [facility] [address] [place] [address] Yuri Pierre, PharmD [address] [place] [address] 08/04/2024 1:00 PM EDT Office Visit [facility] ADULT DENTAL [address] [place] [address] Nuvia Duarte 230 [place] [address] documented as of this encounter Goals Goal [...] documented as of this encounter Care Teams Catering Chef Relationship Specialty Start Date End Date Sariah Vickers, KAYLEE 230 [place] [address] PCP - General Family Medicine 09/23/19 Yuri Pierre, Dileep 230 [place] [address] Pharmacist Internal Medicine 05/05/24 documented as of this encounter
--- OUTSIDE RECORDS SUMMARY | 2024-05-11 13:29 | XMS_ITS | Encounter Summary ---
Author Organization [employer] Address 75 [facility] 7t [place] [address] Care Team Providers Care Agency Director Name Role Phone Sariah Vickers Primary Care Provider [phone] Yuri Pierre PharmD Unavailable [phone] Reason for Visit * Reason Comments Med Refill Encounter Details Date Type Department Care Team ([facility] st Contact Info) Description 12/19/[address] [facility] 230 [place], [place] [phone] Sariah Vickers ANP 230 [place] [address] Vertigo Social History Tobacco Use Types Packs/Day [...] Description 07/02/2024 11:00 AM EDT Clinical Support [address] [address] Azeb Hall, RN 505 [place] [address] 07/15/2024 1:00 PM EDT Office Visit [address] [address] Sariah Vickers, KAYLEE 230 [place] [address] 08/04/2024 10:00 AM EDT Medication Management [address] [address] Yuri Pierre, MikeD [address] [place] [address] 08/04/2024 1:00 PM EDT Office Visit [facility] ADULT DENTAL [address] [place] [address] Nuvia Duarte 230 [place] [address] documented as of this encounter Goals Goal [...] giddiness documented in this encounter Care Teams Agency Director Relationship Specialty Start Date End Date Sariah Vickers ANP 230 [place] [address] PCP - General Family Medicine 09/23/19 Yuri Pierre, Dileep 230 [place] [address] Pharmacist Internal Medicine 05/05/24 documented as of this encounter
--- OUTSIDE RECORDS SUMMARY | 2024-05-11 13:29 | XMS_ITS | Encounter Summary ---
Author Organization [employer] [facility] Address 75 [facility] 7t [place] [address] Care Team Providers Care Planning Coordinator Name Role Phone Sariah Vickers Primary Care Provider [phone] Yrui Pierre PharmD Unavailable [phone] Reason for Visit * Reason Comments Med Refill Encounter Details Date Type Department Care Team ([facility] Contact Info) Description 07/10/2022 Refill [facility] 230 [place] [address] Sariah Vickers ANP 230 [place] [address] Vertigo Social History Tobacco Use Types Packs/Day [...] Clinical Support [facility] MED[facility]INE [address] [place] [address] Azeb Hall, RN 505 [place] [address] 07/15/2024 1:00 PM EDT Office Visit [address] [address] Sariah Vickers ANP [address] [place] [address] 08/04/2024 10:00 AM EDT Medication Management [address] [address] Yuri Pierre, Dileep [address] [place] [address] 08/04/2024 1:00 PM EDT Office Visit [facility] ADULT DENTAL 230 [place] [address] Nuvia Duarte 230 [place] [address] documented as of this encounter Visit Diagnoses Diagnosis Vertigo Dizziness and giddiness documented in this encounter Care Teams Planning Coordinator Relationship Specialty Start Date End Date Sariah Vickers ANP [address] [place] [address] PCP - General Family Medicine 09/23/19 Yuri Pierre, Dileep [address] [place] [address] Pharmacist Internal Medicine 05/05/24 documented as of this encounter
--- OUTSIDE RECORDS SUMMARY | 2024-05-11 13:29 | XMS_ITS | Encounter Summary ---
Author Organization [employer] Address 75 [facility] 7t [place] [address] Care Team Providers Care Adjunct Physical Education Instructor Name Role Phone Sariah Vickers Primary Care Provider [phone] Yuri Pierre PharmD Unavailable [phone] Reason for Visit * Reason Onset Date Comments Nurse Triage 12/24/2022 Encounter Details Date Type Department Care Team (Late st Contact Info) Description 12/24/2022 Telephone [facility] 230 [place] [address] Sariah Vickers ANP 230 [place] [address] Nurse Triage Social History Tobacco Use Types [...] 10:16 AM EDT Sexual Orientation Lesbian or Tsrong 12/17/2021 10 :16 AM EDT documented as of this encounter Miscellaneous Notes * Telephone Encounter - Natacha Matson RN - 12/24/2022 1:11 PM EST Called pt.via [employer] traffic rate computer [phone] Benjamin. Pt. States that she wants to [...] regimen and possible referral to a new Professor Of Mathematics due to pt. Not having jeremie in [...] accepted this outcome Please contact pt at [phone] documented in this encounter Plan of Treatment Upcoming Encounters Date Type Department Care Team (Late st Contact Info) Description 07/02/2024 11:00 AM EDT Clinical Support [address] [address] Azeb Hall RN 505 [place] [address] 07/15/2024 1:00 PM EDT Office Visit [facility] [address] [place] [address] Sariah Vickers ANP [address] [place] [address] 08/04/2024 10:00 AM EDT Medication Management [facility] [address] [place] [address] Yuri Pierre, Dileep [address] [place] [address] 08/04/2024 1:00 PM EDT Office Visit [facility] D[facility] [address] [place] [address] Nuvia Duarte [address] [place] [address] documented as of this encounter Goals Goal [...] on filedocumented in this encounter Care Teams Adjunct Physical Education Instructor Relationship Specialty Start Date End Date Sariah Vickers ANP [address] [place] [address] PCP - General Family Medicine 09/23/19 Yuri Pierre, Dileep [address] [place] [address] Pharmacist Internal Medicine 05/05/24 documented as of this encounter
--- OUTSIDE RECORDS SUMMARY | 2024-05-11 13:29 | XMS_ITS | Encounter Summary ---
Author Organization [employer] Address 75 [facility] 7t [place] [address] Care Team Providers Care Logistics Support Name Role Phone Sariah Vickers Primary Care Provider [phone] Yuri Pierre PharmD Unavailable [phone] Reason for Visit * Reason Onset Date Comments Nurse Triage 01/14/2023 Encounter Details Date Type Department Care Team ([facility] st Contact Info) Description 01/14/2023 Telephone [facility] 230 [place] [address] Sariah Vickers ANP 230 [place] [address] Nurse Triage Social History Tobacco Use Types [...] 01/14/2023 9:26 AM EST Called pt. Via [employer] payroll and benefits manager [phone] Kelly. Pt. States that she has been having a fire feeling in her legs. Its like A burning that goes down her legs . Pt. Unsure if it because of her Diabetes. Pt. Went to [facility] ED for pain [...] at 10am. Will send note to clinical direct care specialist to have note put in chart . [...] Severe pain now, pt was seen at [facility] on 01/13 for pain in leg. Pt is still symptomatic The caller accepted this outcome Please contact pt at [phone] (cytogenetics laboratory manager needed) documented in this encounter Plan of Treatment Upcoming Encounters Date Type Department Care Team (Late st Contact Info) Description 07/02/2024 11:00 AM EDT Clinical Support [facility] MED[facility] [address] [place] [address] Azeb Hall, MARTIN 505 [place] [address] 07/15/2024 1:00 PM EDT Office Visit [address] [address] Sariah Vickers ANP 230 [place] [address] 08/04/2024 10:00 AM EDT Medication Management [address] [address] Yuri Pierre PharmD 230 [place] [address] 08/04/2024 1:00 PM EDT Office Visit [facility] ADULT DENTAL 230 [place] [address] Nuvia Duarte 230 [place] [address] documented as of this encounter Goals Goal [...] on filedocumented in this encounter Care Teams Logistics Support Relationship Specialty Start Date End Date Sariah Vickers ANP 230 [place] [address] PCP - General Family Medicine 09/23/19 Yuri Pierre, MikeD 230 [place] [address] Pharmacist Internal Medicine 05/05/24 documented as of this encounter
--- OUTSIDE RECORDS SUMMARY | 2024-05-11 13:29 | XMS_ITS | Encounter Summary ---
Author Organization [employer] Address [address] [facility] [address] 7t [place] [address] Care Team Providers Care Lead Consultant Name Role Phone Sariah Vickers Primary Care Provider Yuri Pierre PharmD Unavailable [phone] Reason for Visit * Reason Comments Med Refill Encounter Details Date Type Department Care Team ([facility] st Contact Info) Description 07/10/[address] [facility] 230 [place], [place] [phone] Sariah Vickers ANP 230 [place] [address] Chronic SI joint pain Social History Tobacco [...] AM EDT Clinical Support [facility] MED[facility]INE [address] [place] [address] Azeb Hall RN 505 [place] [address] 07/15/2024 1:00 PM EDT Office Visit [facility] [address] [place] [address] Sariah Vickers, ANP 230 [place] [address] 08/04/2024 10:00 AM EDT Medication Management [facility] [address] [place] [address] Yuri Pierre, PharmD [address] [place] [address] 08/04/2024 1:00 PM EDT Office Visit [facility] ADULT DENTAL 230 [place] [address] Nuvia Duarte 230 [place] [address] documented as of this encounter Goals Goal [...] documented as of this encounter Care Teams Lead Consultant Relationship Specialty Start Date End Date Sariah Vickers ANP 230 [place] [address] PCP - General Family Medicine 09/23/19 Yuri Pierre PharmD 230 [place] [address] Pharmacist Internal Medicine 05/05/24 documented as of this encounter
--- OUTSIDE RECORDS SUMMARY | 2024-05-11 13:29 | XMS_ITS | Encounter Summary ---
Author Organization [employer] [facility] Address [address] [place] [address] 7t [place] [address] Care Team Providers Care District Leader Name Role Phone Sariah Vickers Primary Care Provider [phone] Yuri Pierre PharmD Unavailable Reason for Visit * Reason Comments Med Refill Encounter Details Date Type Department Care Team (Late Contact Info) Description 07/12/2022 Refill [facility] 230 [place] [address] Sariah Vickers ANP 230 [place] [address] Social History Tobacco Use Types Packs/Day Years [...] 11:00 AM EDT Clinical Support [facility] [address] [place] [address] Azeb Hall, RN 505 [place] [address] 07/15/2024 1:00 PM EDT Office Visit [address] [address] Sariah Vickers ANP [address] [place] [address] 08/04/2024 10:00 AM EDT Medication Management [address] [address] Yuri Pierre PharmD [address] [place] [address] 08/04/2024 1:00 PM EDT Office Visit [facility] [address] [place] [address] Felicia, Nuvia [address] [place] [address] documented as of this encounter Visit Diagnoses Not on filedocumented in this encounter Care Teams District Leader Relationship Specialty Start Date End Date Sariah Vickers ANP [address] [place] [address] PCP - General Family Medicine 09/23/19 Yuri Pierre, Dileep [address] [place] [address] Pharmacist Internal Medicine 05/05/24 documented as of this encounter
--- OUTSIDE RECORDS SUMMARY | 2024-05-11 13:29 | XMS_ITS | Encounter Summary ---
Author Organization [employer] Address 75 [facility] 7t [place] [address] Care Team Providers Care Mold Cooler Name Role Phone Sariah Vickers Primary Care Provider [phone] Yuri Pierre PharmD Unavailable [phone] Reason for Visit * Reason Comments Med Refill Encounter Details Date Type Department Care Team ([facility] st Contact Info) Description 12/27/2022 Refill [facility] 230 [place], [place] [phone] Sariah Vickers ANP 230 [place] [address] Neck pain Social History Tobacco Use Types [...] 07/02/2024 11:00 AM EDT Clinical Support [address] [address] Azeb Hall, RN 505 [place] [address] 07/15/2024 1:00 PM EDT Office Visit [address] [address] Sariah Vickers, KAYLEE 230 [place] [address] 08/04/2024 10:00 AM EDT Medication Management [address] [address] Yuri Pierre, MikeD [address] [place] [address] 08/04/2024 1:00 PM EDT Office Visit [facility] ADULT DENTAL [address] [place] [address] Nuvia Duarte [address] [place] [address] documented as of this encounter Goals Goal [...] Cervicalgia documented in this encounter Care Teams Mold Cooler Relationship Specialty Start Date End Date Sariah Vickers ANP 230 [place] [address] PCP - General Family Medicine 09/23/19 Yuri Pierre PharmD [address] [place] [address] Pharmacist Internal Medicine 05/05/24 documented as of this encounter
--- OUTSIDE RECORDS SUMMARY | 2024-05-11 13:29 | XMS_ITS | Encounter Summary ---
Author Organization [employer] Address 75 [facility] 7t [place] [address] Care Team Providers Care Medical Equipment Sales Name Role Phone Sariah Vickers Primary Care Provider Yuri Pierre PharmD Unavailable [phone] Reason for Visit * Reason Onset Date Comments Med Refill Durable Medical Equipment 07/15/2023 Foam M attress/Raised Toilet Seat Encounter Details Date Type Department Care Team (Late st Contact Info) Description 07/15/2023 Refill [facility] 230 [place] [address] Sariah Vickers ANP 230 [place] [address] Neck pain Social History Tobacco Use Types [...] sent via email by [facility] Market Investigator Arlin Baker. Please Advise. Good morning, Our [...] EDT Clinical Support [facility] 230 [place] [address] Azeb Hall, MARTIN 505 [place], [place] [phone] 07/15/2024 1:00 PM EDT Office Visit [facility] 230 [place] [address] Sariah Vickers ANP 230 [place] [address] 08/04/2024 10:00 AM EDT Medication Management [facility] 230 [place] [address] Yuri Pierre, Dileep 230 [place] [address] 08/04/2024 1:00 PM EDT Office Visit [facility] ADULT DENTAL 230 [place], [place] [phone] FeliciaNuvia 230 [place] [address] documented as of this encounter Goals Goal [...] documented as of this encounter Care Teams Medical Equipment Sales Relationship Specialty Start Date End Date Sariah Vickers ANP [address] [place] [address] PCP - General Family Medicine 09/23/19 Yuri Pierre, Dileep [address] [place] [address] [phone] Pharmacist Internal Medicine 05/05/24 documented as of this encounter
--- OUTSIDE RECORDS SUMMARY | 2024-05-11 13:29 | XMS_ITS | Clinical Summary ---
Author Organization [facility] Address [address] [place] [address] Phone Care Team Providers Care Sap Basis Name Role Phone Sariah Vickers NP Primary Care Provider [phone] Social History Tobacco Use Types Packs/Day Years [...] age to complete this topic Care Teams Sap Basis Relationship Specialty Start Date End Date Sariah Vickers NP [address] [place] [phone] PCP - General 12/03/23
--- OUTSIDE RECORDS SUMMARY | 2024-05-11 13:29 | XMS_ITS | Encounter Summary ---
Author Organization [employer] Address 75 [facility] 7t [place] [address] Care Team Providers Care Casino Gaming Inspector Name Role Phone Sariah Vickers Primary Care Provider [phone] Yuri Pierre PharmD Unavailable [phone] Reason for Visit * Reason Comments Med Refill Encounter Details Date Type Department Care Team ([facility] st Contact Info) Description 08/14/2022 Refill [facility] [address] [place] [address] Sariah Vickers ANP 230 [place] [address] Severe persistent asthma without complication Social History [...] Clinical Support [facility] MEDICINE [address] [place] [address] Azeb Hall, RN 505 [place] [address] 07/15/2024 1:00 PM EDT Office Visit [facility] MED[facility] [address] [place] [address] Sariah Vickers ANP 230 [place] [address] 08/04/2024 10:00 AM EDT Medication Management [address] [address] Yuri Pierre, Dileep [address] [place] [address] 08/04/2024 1:00 PM EDT Office Visit [facility] ADULT DENTAL 230 [place] [address] Felicia, Nuvia 230 [place] [address] documented as of this encounter Visit Diagnoses Diagnosis Severe persistent asthma without complication documented in this encounter Care Teams Casino Gaming Inspector Relationship Specialty Start Date End Date Sariah Vickers ANP [address] [place] [address] PCP - General Family Medicine 09/23/19 Yuri Pierre, PharmD [address] [place] [address] Pharmacist Internal Medicine 05/05/24 documented as of this encounter
--- OUTSIDE RECORDS SUMMARY | 2024-05-11 13:29 | XMS_ITS | Encounter Summary ---
Author Organization [employer] Address [address] [facility] [address] 7t [place] [address] Care Team Providers Care Military Source Operations Officer Name Role Phone Sariah Vickers KAYLEE Primary Care Provider [phone] Yuri Pierre PharmD Unavailable [phone] Reason for Visit * Reason Comments Med Refill Encounter Details Date Type Department Care Team ([facility] st Contact Info) Description 03/04/2023 Refill [facility] 230 [place], [place] [phone] Brittney Nava MD 230 [place] [address] Social History Tobacco Use Types Packs/Day Years [...] 07/02/2024 11:00 AM EDT Clinical Support [address] [address] Azeb Hall, RN 505 [place] [address] 07/15/2024 1:00 PM EDT Office Visit [address] [address] Sariah Vickers, KAYLEE [address] [place] [address] 08/04/2024 10:00 AM EDT Medication Management [address] [address] Yuri Pierre, MikeD [address] [place] [address] 08/04/2024 1:00 PM EDT Office Visit [facility] [address] [place] [address] Nuvia Duarte [address] [place] [address] documented as of this encounter Goals Goal Patient Goal Type Associated Problems Recent Progress Patient-Stated? Author Blood Pressure < 140/90 Blood Pressure 136/88(2024 11:28 AM EDT) No Aida Ragland, PharmD Record Your Blood Sugar As Directed General No Aida Ragland, Dileep Hemoglobin A1c < 7 Result Component 6.6( 4 8:44 AM EST) No Aida Ragland PharmD documented as of this encounter Visit Diagnoses Not on filedocumented in this encounter Care Teams Military Source Operations Officer Relationship Specialty Start Date End Date Sariah Vickers ANP 230 [place] [address] PCP - General Family Medicine 09/23/19 Yuri Pierre, MikeD 230 [place] [address] Pharmacist Internal Medicine 05/05/24 documented as of this encounter
== END 2024-05-11 11:37 | disposition home or self-care (01) ==
LOC: HO.HGS 10:59
PROVIDERS: PCP Nurse Practitioner Primary Care; Visit Provider Surgery
DX: L02.33 Carbuncle of buttock (principal); K42.9 Umbilical hernia without obstruction or gangrene
CPT/HCPCS: 99214

== ENCOUNTER → 2024-05-11 10:59 | Outpatient (BNVA) | payer OTHER, SELFPAY | PROVIDERS: PCP Nurse Practitioner Primary Care; Visit Provider Surgery | DX: Z48.817 Encounter for surgical aftercare following surgery on the skin and subcutaneous tissue (principal); K42.9 Umbilical hernia without obstruction or gangrene; Z98.890 Other specified postprocedural states | CPT/HCPCS: 99212 ==

== ENCOUNTER 2024-05-26 12:51 | Outpatient (REF) | payer OTHER, SELFPAY ==
--- NOTE | ~2024-05-26 | US_ITS ---
CLINICAL HISTORY: N20.0 - Calculus of kidney US renal with Color Doppler Comparison: CT/SR - CT ABDOMEN PELVIS W IV CON - 03/20/24 18:22 EST US/SR - US ABDOMEN COMPLETE - 11/05/23 08:[address]/GA/SR - CT ABDOMEN WO/W IV CON - 09/05/23 16:27 EDT US/GA/SR - US RENAL BI - 06/04/23 12:55 EDT Findings: Right kidney normal size and echotexture, 11.4 cm length. No hydronephrosis calculus or mass. Normal color flow. Stable renal cortical defect upper pole Left kidney normal size and echotexture, 11.1 cm length. No hydronephrosis calculus or mass. Normal color flow. Simple exophytic cyst upper pole measuring 3.8 x 3.8 x 3.7 cm previously measuring 3.7 x [address] Impression: 1. No nephrolithiasis or hydronephrosis. Anechoic cyst upper pole left kidney described on recent CT. This was not described on previous abdominal or renal ultrasound probably obscured. Six-month follow-up renal ultrasound is recommended This document has been electronically signed by: Diogo Plasencia MD on 05/27/2024 10:05:47
--- OUTSIDE RECORDS SUMMARY | 2024-05-26 14:51 | XMS_ITS | Encounter Summary ---
Author Organization [facility] Address [address] [facility] 7t [place] [address] Care Team Providers Care Manager Nicu Name Role Phone Sariah Vickers Primary Care Provider Yuri Pierre PharmD Unavailable [phone] Basilio Hall MD Unavailable [phone] Ron Preciado MD Unavailable [phone] Reason for Visit * Reason Onset Date Comments Durable Medical Equipment 03/15/2022 Encounter Details Date Type Department Care Team (Late st Contact Info) Description 03/15/2022 Telephone [facility] 230 [place] [address] Sariah Vickers ANP 230 [place], [place] [phone] Durable Medical Equipment Social History Tobacco Use [...] Description 07/02/2024 11:00 AM EDT Clinical Support [address] [address] Azeb Hall, RN 505 [place] [address] 07/15/2024 1:00 PM EDT Office Visit [facility] [address] [place] [address] Sariah Vickers ANP 230 [place] [address] 08/04/2024 10:00 AM EDT Medication Management [facility] [address] [place] [address] Yuri Pierre, PharmD 230 [place] [address] 08/04/2024 1:00 PM EDT Office Visit [facility] [address] [place] [address] Nuvia Duarte 230 [place] [address] documented as of this encounter Visit Diagnoses Not on filedocumented in this encounter Care Teams Manager Nicu Relationship Specialty Start Date End Date Sariah Vickers ANP [address] [place] [address] PCP - General Family Medicine 09/23/19 Yuri Pierre, MikeD 230 [place] [address] Pharmacist Internal Medicine 05/05/24 Basilio Hall MD 596 [place] [address] Cardiology 05/17/24 Ron Preciado MD [address] [place] [address] Pulmonary Disease 05/17/24 documented as of this encounter
--- OUTSIDE RECORDS SUMMARY | 2024-05-26 14:51 | XMS_ITS | Encounter Summary ---
Author Organization [employer] [facility] Address [address] [facility] 7t [place] [address] Care Team Providers Care Slate Trimmer Name Role Phone Sariah Vickers Primary Care Provider [phone] Yuri Pierre PharmD Unavailable [phone] Basilio Hall MD Unavailable [phone] Ron Preciado MD Unavailable [phone] Reason for Visit * Reason Comments Med Refill Encounter Details Date Type Department Care Team (Late st Contact Info) Description 11/14/2023 Refill [facility] 230 [place] [address] Sariah Vickers ANP 230 [place] [address] Neck pain Social History Tobacco Use Types [...] Description 07/02/2024 11:00 AM EDT Clinical Support [facility] [address] [place] [address] Azeb Hall, RN 505 [place] [address] 07/15/2024 1:00 PM EDT Office Visit [facility] [address] [place] [address] Sariah Vickers, KAYLEE 230 [place] [address] 08/04/2024 10:00 AM EDT Medication Management [facility] [address] [place] [address] Yuri Pierre, PharmD [address] [place] [address] 08/04/2024 1:00 PM EDT Office Visit [facility] [address] [place] [address] Nuvia Duarte 230 [place] [address] documented as of this encounter Goals Goal [...] documented as of this encounter Care Teams Slate Trimmer Relationship Specialty Start Date End Date Sariah Vickers ANP 230 [place] [address] PCP - General Family Medicine 09/23/19 Yuri Pierre PharmD 230 [place] [address] Pharmacist Internal Medicine 05/05/24 Basilio Hall MD 596 [place] [address] Cardiology 05/17/24 Ron Preciado MD [address] [place] [address] Pulmonary Disease 05/17/24 documented as of this encounter
--- OUTSIDE RECORDS SUMMARY | 2024-05-26 14:51 | XMS_ITS | Encounter Summary ---
Author Organization [employer] [facility] Address 75 [facility] 7t [place] [address] Care Team Providers Care Descriptive Catalog Librarian Name Role Phone Sariah Vickers Primary Care Provider [phone] Yuri Pierre PharmD Unavailable [phone] Basilio Hall MD Unavailable [phone] Ron Preciado MD Unavailable [phone] Reason for Visit * Reason Comments Med Refill Encounter Details Date Type Department Care Team (Late st Contact Info) Description 10/17/2023 Refill [facility] 230 [place] [address] Sariah Vickers ANP 230 [place] [address] Neck pain Social History Tobacco Use Types [...] 11:00 AM EDT Clinical Support [facility] [address] [place] [address] Azeb Hall, RN 505 [place] [address] 07/15/2024 1:00 PM EDT Office Visit [facility] [address] [place] [address] Sariah Vickers, KAYLEE 230 [place] [address] 08/04/2024 10:00 AM EDT Medication Management [facility] [address] [place] [address] Yuri Pierre, PharmD [address] [place] [address] 08/04/2024 1:00 PM EDT Office Visit [facility] [address] [place] [address] Nuvia Duarte 230 [place] [address] documented as of this encounter Goals Goal [...] documented as of this encounter Care Teams Descriptive Catalog Librarian Relationship Specialty Start Date End Date Sariah Vickers ANP 230 [place] [address] PCP - General Family Medicine 09/23/19 Yuri Pierre PharmD 230 [place] [address] Pharmacist Internal Medicine 05/05/24 Basilio Hall MD 596 [place] [address] Cardiology 05/17/24 Ron Preciado MD [address] [place] [address] Pulmonary Disease 05/17/24 documented as of this encounter
--- OUTSIDE RECORDS SUMMARY | 2024-05-26 14:51 | XMS_ITS | Encounter Summary ---
Author Organization [employer] [facility] Address [address] [facility] 7t [place] [address] Care Team Providers Care Mail Sorter Name Role Phone Sariah Vickers Primary Care Provider Yuri Pierre PharmD Unavailable [phone] Basilio Hall MD Unavailable [phone] Ron Preciado MD Unavailable [phone] Encounter Details Date Type Department Care Team (Late st Contact Info) Description 01/09/2022 Abstract [facility] 230 [place] [address] Dental, Provider, DDS Social History Tobacco Use [...] 07/02/2024 11:00 AM EDT Clinical Support [facility] [address] [place] [address] Azeb Hall RN 505 [place] [address] 07/15/2024 1:00 PM EDT Office Visit [facility] [address] [place] [address] Sariah Vickers ANP 230 [place] [address] 08/04/2024 10:00 AM EDT Medication Management [facility] 230 [place] [address] Yuri Pierre, Dileep 230 [place] [address] 08/04/2024 1:00 PM EDT Office Visit [facility] 230 [place] [address] FeliciaNuvia 230 [place] [address] documented as of this encounter Procedures Procedure [...] on filedocumented in this encounter Care Teams Mail Sorter Relationship Specialty Start Date End Date Sariah Vickers ANP 230 [place] [address] PCP - General Family Medicine 09/23/19 Yuri Pierre, MikeD 230 [place] [address] Pharmacist Internal Medicine 05/05/24 Basilio Hall MD [address] [place] [address] Cardiology 05/17/24 Ron Preciado MD [address] [place] [address] Pulmonary Disease 05/17/24 documented as of this encounter
--- OUTSIDE RECORDS SUMMARY | 2024-05-26 14:51 | XMS_ITS | Encounter Summary ---
Author Organization [employer] Address 75 [facility] 7t [place] [address] Care Team Providers Care Roving Hand Name Role Phone Sariah Vickers Primary Care Provider [phone] Yuri Pierre PharmD Unavailable [phone] Basilio Hall MD Unavailable [phone] Ron Preciado MD Unavailable [phone] Reason for Visit * Reason Comments Med Refill Encounter Details Date Type Department Care Team (Late st Contact Info) Description 10/03/2023 Refill [facility] 230 [place], [place] [phone] aSriah Vickers ANP 230 [place], [place] [phone] Chronic SI joint pain Social History Tobacco [...] 07/02/2024 11:00 AM EDT Clinical Support [facility] [address] [place] [address] Azeb Hall, MARTIN 505 [place] [address] 07/15/2024 1:00 PM EDT Office Visit [facility] [address] [place] [address] Sariah Vickers, ANP 230 [place] [address] 08/04/2024 10:00 AM EDT Medication Management [facility] [address] [place] [address] Yuri Pierre, PharmD [address] [place] [address] 08/04/2024 1:00 PM EDT Office Visit [facility] [address] [place] [address] Nuvia Duarte 230 [place] [address] documented as of this encounter Goals Goal [...] documented as of this encounter Care Teams Roving Hand Relationship Specialty Start Date End Date Sariah Vickers ANP 230 [place] [address] PCP - General Family Medicine 09/23/19 Yuri Pierre PharmD [address] [place] [address] Pharmacist Internal Medicine 05/05/24 Basilio Hall MD [address] [place] [address] Cardiology 05/17/24 Ron Preciado MD [address] [place] [address] Pulmonary Disease 05/17/24 documented as of this encounter
--- OUTSIDE RECORDS SUMMARY | 2024-05-26 14:51 | XMS_ITS | Encounter Summary ---
Author Organization [employer] [facility] Address [address] [facility] 7t [place] [address] Care Team Providers Care Film Spooler Name Role Phone Sariah Vickers Primary Care Provider [phone] Yuri Pierre PharmD Unavailable [phone] Basilio Hall MD Unavailable [phone] Ron Preciado MD Unavailable [phone] Reason for Visit * Reason Comments Med Refill Encounter Details Date Type Department Care Team (Late st Contact Info) Description 02/06/2022 Refill [facility] 230 [place] [address] Sariah Vickers ANP 230 [place] [address] Social History Tobacco Use Types Packs/Day Years [...] Description 07/02/2024 11:00 AM EDT Clinical Support [address] [address] Azeb Hall, RN 505 [place] [address] 07/15/2024 1:00 PM EDT Office Visit [address] [address] Sariah Vickers ANP [address] [place] [address] 08/04/2024 10:00 AM EDT Medication Management [address] [address] Yuri Pierre, Dileep [address] [place] [address] 08/04/2024 1:00 PM EDT Office Visit [facility] [address] [place] [address] Felicia, Nuvia 230 [place] [address] documented as of this encounter Visit Diagnoses Not on filedocumented in this encounter Care Teams Film Spooler Relationship Specialty Start Date End Date Sariah Vickers ANP [address] [place] [address] PCP - General Family Medicine 09/23/19 Yuri Pierre, PharmD [address] [place] [address] Pharmacist Internal Medicine 05/05/24 Basilio Hall MD 596 [place] [address] Cardiology 05/17/24 Ron Preciado MD [address] [place] [address] Pulmonary Disease 05/17/24 documented as of this encounter
--- OUTSIDE RECORDS SUMMARY | 2024-05-26 14:51 | XMS_ITS | Encounter Summary ---
Author Organization [employer] [facility] Address 75 [facility] 7t [place] [address] Care Team Providers Care Boxing 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 Name Role Phone Sariah Vickers Primary Care Provider [phone] Yuri Pierre PharmD Unavailable [phone] Basilio Hall MD Unavailable [phone] Ron Preciado MD Unavailable [phone] Reason for Visit * Reason Comments Med Refill Encounter Details Date Type Department Care Team (Late st Contact Info) Description 03/03/2022 Refill [facility] 230 [place] [address] Sariah Vickers ANP 230 [place] [address] Social History Tobacco Use Types Packs/Day Years [...] Description 07/02/2024 11:00 AM EDT Clinical Support [address] [address] Azeb Hall RN 505 [place] [address] 07/15/2024 1:00 PM EDT Office Visit [address] [address] Sariah Vickers ANP [address] [place] [address] 08/04/2024 10:00 AM EDT Medication Management [address] [address] Yuri Pierre PharmD [address] [place] [address] 08/04/2024 1:00 PM EDT Office Visit [facility] [address] [place] [address] Felicia, Nuvia 230 [place] [address] documented as of this encounter Visit Diagnoses Not on filedocumented in this encounter Care Teams Boxing 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 Relationship Specialty Start Date End Date Sariah Vickers ANP [address] [place] [address] PCP - General Family Medicine 09/23/19 Yuri Pierre, PharmD [address] [place] [address] Pharmacist Internal Medicine 05/05/24 Basilio Hall MD 596 [place] [address] Cardiology 05/17/24 Ron Preciado MD [address] [place] [address] Pulmonary Disease 05/17/24 documented as of this encounter
--- OUTSIDE RECORDS SUMMARY | 2024-05-26 14:51 | XMS_ITS | Encounter Summary ---
Author Organization [employer] Address 75 [facility] 7t [place] [address] Care Team Providers Care Med Dir Name Role Phone Sariah Vickers Primary Care Provider [phone] Yuri Pierre PharmD Unavailable [phone] Basilio Hall MD Unavailable [phone] Ron Preciado MD Unavailable [phone] Reason for Visit * Reason Comments Med Refill Encounter Details Date Type Department Care Team (Late st Contact Info) Description 10/03/2023 Refill [facility] 230 [place], [place] [phone] Sariah Vickers ANP 230 [place], [place] [phone] Chronic SI joint pain Social History Tobacco [...] AM EDT Clinical Support [facility] [address] [place] [address] Azeb Hall, MARTIN 505 [place] [address] 07/15/2024 1:00 PM EDT Office Visit [facility] [address] [place] [address] Sariah Vickers, ANP 230 [place] [address] 08/04/2024 10:00 AM EDT Medication Management [facility] [address] [place] [address] Yuri Pierre, PharmD [address] [place] [address] 08/04/2024 1:00 PM EDT Office Visit [facility] [address] [place] [address] Nuvia Duarte 230 [place] [address] documented as of this encounter Goals Goal [...] documented as of this encounter Care Teams Med Dir Relationship Specialty Start Date End Date Sariah Vickers ANP 230 [place] [address] PCP - General Family Medicine 09/23/19 Yuri Pierre PharmD [address] [place] [address] Pharmacist Internal Medicine 05/05/24 Basilio Hall MD [address] [place] [address] Cardiology 05/17/24 Ron Preciado MD [address] [place] [address] Pulmonary Disease 05/17/24 documented as of this encounter
--- OUTSIDE RECORDS SUMMARY | 2024-05-26 14:51 | XMS_ITS | Encounter Summary ---
Author Organization [employer] [facility] Address 75 [facility] 7t [place] [address] Care Team Providers Care Drum Printer Name Role Phone Sariah Vickers Primary Care Provider [phone] Yuri Pierre PharmD Unavailable [phone] Basilio Hall MD Unavailable [phone] Ron Preciado MD Unavailable [phone] Reason for Visit * Reason Comments Med Refill Encounter Details Date Type Department Care Team (Late st Contact Info) Description 11/24/2023 Refill [facility] 230 [place] [address] Sariah Vickers ANP 230 [place] [address] Vertigo Social History Tobacco Use Types Packs/Day [...] EDT Clinical Support [facility] [address] [place] [address] Azeb Hall, RN 505 [place] [address] 07/15/2024 1:00 PM EDT Office Visit [facility] [address] [place] [address] Sariah Vicekrs, KAYLEE 230 [place] [address] 08/04/2024 10:00 AM EDT Medication Management [facility] [address] [place] [address] Yuri Pierre, PharmD [address] [place] [address] 08/04/2024 1:00 PM EDT Office Visit [facility] [address] [place] [address] Nuvia Duarte 230 [place] [address] documented as of this encounter Goals Goal [...] documented as of this encounter Care Teams Drum Printer Relationship Specialty Start Date End Date Sariah Vickers ANP 230 [place] [address] PCP - General Family Medicine 09/23/19 Yuri Pierre, MikeD [address] [place] [address] Pharmacist Internal Medicine 05/05/24 Basilio Hall MD 596 [place] [address] Cardiology 05/17/24 Ron Preciado MD [address] [place] [address] Pulmonary Disease 05/17/24 documented as of this encounter
--- OUTSIDE RECORDS SUMMARY | 2024-05-26 14:51 | XMS_ITS | Encounter Summary ---
Author Organization [employer] Address 75 [facility] 7t [place] [address] Care Team Providers Care Medical Sociologist Name Role Phone Sariah Vickers Primary Care Provider [phone] Yuri Pierre PharmD Unavailable [phone] Basilio Hall MD Unavailable [phone] Ron Preciado MD Unavailable [phone] Reason for Visit * Reason Comments Med Refill Encounter Details Date Type Department Care Team (Late st Contact Info) Description 01/06/2024 Refill [facility] [address] [place] [address] Sariah Vickers, KAYLEE 230 [place] [address] Cervicalgia Social History Tobacco Use Types Packs/Day [...] Clinical Support [facility] [address] [place] [address] Azeb Hall, MARTIN 505 [place] [address] 07/15/2024 1:00 PM EDT Office Visit [facility] [address] [place] [address] Sariah Vickers ANP 230 [place] [address] 08/04/2024 10:00 AM EDT Medication Management [facility] [address] [place] [address] Yuri Pierre, PharmD [address] [place] [address] 08/04/2024 1:00 PM EDT Office Visit [facility] ADULT DENT[facility] [address] [place] [address] Nuvia Duarte 230 [place] [address] documented as of this encounter Goals Goal [...] as of this encounter Care Teams Medical Sociologist Relationship Specialty Start Date End Date Sariah Vickers ANP 230 [place] [address] PCP - General Family Medicine 09/23/19 Yuri Pierre PharmD 230 [place] [address] Pharmacist Internal Medicine 05/05/24 Basilio Hall MD 596 [place] [address] Cardiology 05/17/24 Ron Preciado MD [address] [place] [address] Pulmonary Disease 05/17/24 documented as of this encounter
--- OUTSIDE RECORDS SUMMARY | 2024-05-26 14:51 | XMS_ITS | Encounter Summary ---
Author Organization [employer] Address 75 [facility] 7t [place] [address] Care Team Providers Care Dry Roller Name Role Phone Sariah Vickers Primary Care Provider [phone] Yuri Pierre PharmD Unavailable [phone] Basilio Hall MD Unavailable [phone] Ron Preciado MD Unavailable [phone] Reason for Visit * Reason Comments Med Refill Encounter Details Date Type Department Care Team (Late st Contact Info) Description 01/04/2024 Refill [facility] [address] [place] [address] aSriah Vickers, KAYLEE 230 [place] [address] Cervicalgia Social History Tobacco Use Types Packs/Day [...] 07/02/2024 11:00 AM EDT Clinical Support [facility] [address] [place] [address] Azeb Hall, MARTIN 505 [place] [address] 07/15/2024 1:00 PM EDT Office Visit [facility] [address] [place] [address] Sariah Vickers ANP 230 [place] [address] 08/04/2024 10:00 AM EDT Medication Management [facility] [address] [place] [address] Yuri Pierre, PharmD [address] [place] [address] 08/04/2024 1:00 PM EDT Office Visit [facility] [address] [place] [address] Nuvia Duarte 230 [place] [address] documented as of this encounter Goals Goal [...] as of this encounter Care Teams Dry Roller Relationship Specialty Start Date End Date Sariah Vickers ANP 230 [place] [address] PCP - General Family Medicine 09/23/19 Yuri Pierre PharmD 230 [place] [address] Pharmacist Internal Medicine 05/05/24 Basilio Hall MD 596 [place] [address] Cardiology 05/17/24 Ron Preciado MD [address] [place] [address] Pulmonary Disease 05/17/24 documented as of this encounter
--- OUTSIDE RECORDS SUMMARY | 2024-05-26 14:51 | XMS_ITS | Encounter Summary ---
Author Organization [employer] [facility] Address [address] [facility] 7t [place] [address] Care Team Providers Care Global Compensation Analyst Name Role Phone Sariah Vickers Primary Care Provider [phone] Yuri Pierre PharmD Unavailable [phone] Basilio Hall MD Unavailable [phone] Ron Preciado MD Unavailable [phone] Reason for Visit * Reason Onset Date Comments Med Refill 09/18/2023 Encounter Details Date Type Department Care Team (Late st Contact Info) Description 09/18/2023 Telephone [facility] MEDICINE [address] [place], [place] [phone] Sariah Vickers ANP 230 [place], [place] [phone] Med Refill Social History Tobacco Use Types [...] : Tramadol To be sent to: [facility] - [place], [place] - [address] [place] [address] documented in this encounter Plan of Treatment Upcoming Encounters Date Type Department Care Team ([facility] st Contact Info) Description 07/02/2024 11:00 AM EDT Clinical Support [facility] MEDICINE [address] [place] [address] Azeb Hall RN 505 [place] [address] 07/15/2024 1:00 PM EDT Office Visit [address] [address] Sariah Vickers ANP [address] [place] [address] 08/04/2024 10:00 AM EDT Medication Management [address] [address] Yuri Pierre, Dileep 230 [place] [address] 08/04/2024 1:00 PM EDT Office Visit [facility] ADULT DENTAL 230 [place] [address] Nuvia Duarte 230 [place] [address] documented as of this encounter Goals Goal [...] documented as of this encounter Care Teams Global Compensation Analyst Relationship Specialty Start Date End Date Sariah Vickers ANP 230 [place] [address] PCP - General Family Medicine 09/23/19 Yuri Pierre, PharmD 230 [place] [address] Pharmacist Internal Medicine 05/05/24 Basilio Hall MD 596 [place] [address] Cardiology 05/17/24 Ron Preciado MD [address] [place] [address] Pulmonary Disease 05/17/24 documented as of this encounter
--- OUTSIDE RECORDS SUMMARY | 2024-05-26 14:51 | XMS_ITS | Encounter Summary ---
Author Organization [facility] Address [address] [facility] 7t [place] [address] Care Team Providers Care Switchboard Mechanic Name Role Phone Sariah Vickers Primary Care Provider [phone] Yuri Pierre PharmD Unavailable [phone] Basilio Hall MD Unavailable [phone] Ron Preciado MD Unavailable [phone] Reason for Visit * Reason Comments Med Refill Encounter Details Date Type Department Care Team (Late st Contact Info) Description 11/26/2023 Refill [facility] MEDICINE 230 [place] [address] Sariah Vickers ANP 230 [place] [address] Vertigo Social History Tobacco Use Types Packs/Day [...] Clinical Support [facility] MEDICINE [address] [place] [address] Azeb Hall, RN 505 [place] [address] 07/15/2024 1:00 PM EDT Office Visit [facility] MEDICINE [address] [place] [address] Sariah Vickers, KAYLEE 230 [place] [address] 08/04/2024 10:00 AM EDT Medication Management [facility] MEDICINE [address] [place] [address] Yuri Pierre, PharmD [address] [place] [address] 08/04/2024 1:00 PM EDT Office Visit [facility] ADULT DENTAL [address] [place] [address] Nuvia Duarte 230 [place] [address] documented as of this encounter Goals Goal [...] documented as of this encounter Care Teams Switchboard Mechanic Relationship Specialty Start Date End Date Sariah Vickers ANP 230 [place] [address] PCP - General Family Medicine 09/23/19 Yuri Pierre, MikeD [address] [place] [address] Pharmacist Internal Medicine 05/05/24 Basilio Hall MD 596 [place] [address] Cardiology 05/17/24 Ron Preciado MD [address] [place] [address] Pulmonary Disease 05/17/24 documented as of this encounter
--- OUTSIDE RECORDS SUMMARY | 2024-05-26 14:51 | XMS_ITS | Encounter Summary ---
Author Organization [employer] Address [address] [facility] 7t [place] [address] Care Team Providers Care Upstairs Maid Name Role Phone Sariah Vickers Primary Care Provider [phone] Yuri Pierre PharmD Unavailable [phone] Basilio Hall MD Unavailable [phone] Ron Preciado MD Unavailable [phone] Reason for Visit * Reason Comments Med Refill Encounter Details Date Type Department Care Team (Late st Contact Info) Description 12/17/2023 Refill [facility] MEDICINE 230 [place] [address] Sariah Vickers ANP 230 [place] [address] Chronic SI joint pain Social History Tobacco [...] Description 07/02/2024 11:00 AM EDT Clinical Support [facility] MEDICINE [address] [place] [address] zAeb Hall RN 505 [place] [address] 07/15/2024 1:00 PM EDT Office Visit [facility] MEDICINE [address] [place] [address] Sariah Vickers, KAYLEE 230 [place] [address] 08/04/2024 10:00 AM EDT Medication Management [facility] MEDICINE [address] [place] [address] Yuri Pierre, PharmD [address] [place] [address] 08/04/2024 1:00 PM EDT Office Visit [facility] ADULT DENTAL [address] [place] [address] Nuvia Duarte 230 [place] [address] documented as of this encounter Goals Goal [...] documented as of this encounter Care Teams Upstairs Maid Relationship Specialty Start Date End Date Sariah Vickers ANP 230 [place] [address] PCP - General Family Medicine 09/23/19 Yuri Pierre PharmD [address] [place] [address] Pharmacist Internal Medicine 05/05/24 Basilio Hall MD [address] [place] [address] Cardiology 05/17/24 Ron Preciado MD [address] [place] [address] Pulmonary Disease 05/17/24 documented as of this encounter
--- OUTSIDE RECORDS SUMMARY | 2024-05-26 14:51 | XMS_ITS | Encounter Summary ---
Author Organization [facility] Address [address] [facility] 7t [place] [address] Care Team Providers Care Can Filling Room Sweeper Name Role Phone Sariah Vickers Primary Care Provider [phone] Yrui Pierre PharmD Unavailable [phone] Basilio Hall MD Unavailable [phone] Ron Preciado MD Unavailable [phone] Encounter Details Date Type Department Care Team (Latest Contact Info) Description 05/15/2018 Abstract [facility] CONVERSIONS Dental, Provider, DDS Social [...] Support [facility] MEDICINE [address] [place] [address] Azeb Hall RN 505 [place] [address] 07/15/2024 1:00 PM EDT Office Visit [facility] MEDICINE [address] [place] [address] Sariah Vickers ANP [address] [place] [address] 08/04/2024 10:00 AM EDT Medication Management [facility] MEDICINE 230 [place] [address] Yuri Pierre, PharmBear 230 [place] [address] 08/04/2024 1:00 PM EDT Office Visit [facility] ADULT DENTAL 230 [place] [address] Nuvia Duarte 230 [place] [address] documented as of this encounter Visit Diagnoses Not on filedocumented in this encounter Care Teams Can Filling Room Sweeper Relationship Specialty Start Date End Date Sariah Vickers ANP 230 [place] [address] PCP - General Family Medicine 09/23/19 Yuri Pierre, PharmD [address] [place] [address] Pharmacist Internal Medicine 05/05/24 Basilio Hall MD 596 [place] [address] Cardiology 05/17/24 Ron Preciado MD [address] [place] [address] Pulmonary Disease 05/17/24 documented as of this encounter
--- OUTSIDE RECORDS SUMMARY | 2024-05-26 14:51 | XMS_ITS | Encounter Summary ---
Author Organization [employer] [facility] Address [address] [facility] 7t [place] [address] Care Team Providers Care Letterpress Setter Name Role Phone Sariah Vickers Primary Care Provider [phone] Yuri Pierre PharmD Unavailable [phone] Basilio Hall MD Unavailable [phone] Ron Preciado MD Unavailable [phone] Reason for Visit * Reason Comments Med Refill Encounter Details Date Type Department Care Team (Late st Contact Info) Description 08/22/2023 Refill [facility] MEDICINE 230 [place] [address] Sariah Vickers ANP 230 [place] [address] Neck pain Social History Tobacco Use Types [...] EDT Clinical Support [facility] MEDICINE [address] [place] [address] Azeb Hall, RN 505 [place] [address] 07/15/2024 1:00 PM EDT Office Visit [facility] MEDICINE [address] [place] [address] Sariah Vickers, KAYLEE 230 [place] [address] 08/04/2024 10:00 AM EDT Medication Management [facility] MEDICINE [address] [place] [address] Yuri Pierre, PharmD [address] [place] [address] 08/04/2024 1:00 PM EDT Office Visit [facility] ADULT DENTAL [address] [place] [address] Nuvia Duarte 230 [place] [address] documented as of this encounter Goals Goal [...] documented as of this encounter Care Teams Letterpress Setter Relationship Specialty Start Date End Date Sariah Vickers ANP 230 [place] [address] PCP - General Family Medicine 09/23/19 Yuri Pirere PharmD 230 [place] [address] Pharmacist Internal Medicine 05/05/24 Basilio Hall MD [address] [place] [address] Cardiology 05/17/24 Ron Preciado MD [address] [place] [address] Pulmonary Disease 05/17/24 documented as of this encounter
--- OUTSIDE RECORDS SUMMARY | 2024-05-26 14:51 | XMS_ITS | Encounter Summary ---
Author Organization [employer] [facility] Address [address] [facility] 7t [place] [address] Care Team Providers Care Mobile Application Tester Name Role Phone Sariah Vickers Primary Care Provider [phone] Yuri Pierre PharmD Unavailable [phone] Basilio Hall MD Unavailable [phone] Ron Preciado MD Unavailable [phone] Reason for Visit * Reason Comments Med Refill Encounter Details Date Type Department Care Team (Late st Contact Info) Description 03/26/2022 Refill [facility] MEDICINE 230 [place] [address] Sariah Vickers ANP 230 [place] [address] Social History Tobacco Use Types Packs/Day Years [...] Description 07/02/2024 11:00 AM EDT Clinical Support [address] [address] Azeb Hall, RN 505 [place] [address] 07/15/2024 1:00 PM EDT Office Visit [address] [address] Sariah Vickers ANP [address] [place] [address] 08/04/2024 10:00 AM EDT Medication Management [address] [address] Yuri Pierre, Dileep [address] [place] [address] 08/04/2024 1:00 PM EDT Office Visit [facility] ADULT DENTAL [address] [place] [address] Felicia, Nuvia 230 [place] [address] documented as of this encounter Visit Diagnoses Not on filedocumented in this encounter Care Teams Mobile Application Tester Relationship Specialty Start Date End Date Sariah Vickers ANP [address] [place] [address] PCP - General Family Medicine 09/23/19 Yuri Pierre, PharmD [address] [place] [address] Pharmacist Internal Medicine 05/05/24 Basilio Hall MD 596 [place] [address] Cardiology 05/17/24 Ron Preciado MD [address] [place] [address] Pulmonary Disease 05/17/24 documented as of this encounter
--- OUTSIDE RECORDS SUMMARY | 2024-05-26 14:51 | XMS_ITS | Encounter Summary ---
Author Organization [employer] Address 75 [facility] 7t [place] [address] Care Team Providers Care Property Management Specialist Name Role Phone Sariah Vickers Primary Care Provider Yuri Pierre PharmD Unavailable [phone] Basilio Hall MD Unavailable [phone] Ron Preciado MD Unavailable [phone] Reason for Visit * Reason Comments Med Refill Encounter Details Date Type Department Care Team (Late st Contact Info) Description 01/06/2024 Refill [facility] CHC MED & PEDS [address] [place] [address] Sariah Vickers, KAYLEE 230 [place] [address] Cervicalgia Social History Tobacco Use Types Packs/Day [...] Support [facility] MEDICINE [address] [place] [address] Azeb Hall, MARTIN 505 [place] [address] 07/15/2024 1:00 PM EDT Office Visit [facility] MEDICINE [address] [place] [address] Sariah Vickers ANP 230 [place] [address] 08/04/2024 10:00 AM EDT Medication Management [facility] MEDICINE [address] [place] [address] Yuri Pierre, PharmD [address] [place] [address] 08/04/2024 1:00 PM EDT Office Visit [facility] ADULT DENTAL [address] [place] [address] Nuvia Duarte 230 [place] [address] documented as of this encounter Goals Goal [...] as of this encounter Care Teams Property Management Specialist Relationship Specialty Start Date End Date Sariah Vickers ANP 230 [place] [address] PCP - General Family Medicine 09/23/19 Yuri Pierre PharmD 230 [place] [address] Pharmacist Internal Medicine 05/05/24 Basilio Hall MD 596 [place] [address] Cardiology 05/17/24 Ron Preciado MD [address] [place] [address] Pulmonary Disease 05/17/24 documented as of this encounter
--- OUTSIDE RECORDS SUMMARY | 2024-05-26 14:51 | XMS_ITS | Encounter Summary ---
Author Organization [facility] Address [address] [place] [address] 7t [place] [address] Care Team Providers Care Country Printer Name Role Phone Sariah Vickers Primary Care Provider Yuri Pierre PharmD Unavailable [phone] Basilio Hall MD Unavailable [phone] Ron Preciado MD Unavailable [phone] Reason for Visit * Reason Onset Date Comments Nurse Triage 11/01/2022 Encounter Details Date Type Department Care Team (Late st Contact Info) Description 11/01/2022 Telephone [facility] MEDICINE 230 [place] [address] Sariah Vickers ANP 230 [place] [address] Nurse Triage Social History Tobacco Use Types [...] 11/01/2022 3:51 PM EDT Triage call with [place] [employer] [place] ID [id number] Pt reports blood sugars have been high [...] AM EDT Clinical Support [facility] MEDICINE [address] [place] [address] Azeb Hall RN 505 [place] [address] 07/15/2024 1:00 PM EDT Office Visit [facility] MEDICINE [address] [place] [address] Sariah Vickers ANP 230 [place] [address] 08/04/2024 10:00 AM EDT Medication Management [facility] MEDICINE [address] [place] [address] Yuri Pierre PharmD 230 [place] [address] 08/04/2024 1:00 PM EDT Office Visit [facility] ADULT DENTAL [address] [place] [address] Nuvia Duarte 230 [place] [address] documented as of this encounter Goals Goal [...] on filedocumented in this encounter Care Teams Country Printer Relationship Specialty Start Date End Date Sariah Vickers ANP 230 [place] [address] PCP - General Family Medicine 09/23/19 Yuri Pierre, PharmD 230 [place] [address] Pharmacist Internal Medicine 05/05/24 Basilio Hall MD 596 [place] [address] Cardiology 05/17/24 Ron Preciado MD [address] [place] [address] Pulmonary Disease 05/17/24 documented as of this encounter
--- OUTSIDE RECORDS SUMMARY | 2024-05-26 14:51 | XMS_ITS | Encounter Summary ---
Author Organization [facility] [facility] Address [address] [facility] 7t [place] [address] Care Team Providers Care Assistant Spa Director Name Role Phone Sariah Vickers Primary Care Provider [phone] Yuri Pierre PharmD Unavailable [phone] Basilio Hall MD Unavailable [phone] Ron Preciado MD Unavailable [phone] Encounter Details Date Type Department Care Team (Latest Contact Info) Description 04/14/2020 Abstract [facility] CONVERSIONS Dental, [...] Description 07/02/2024 11:00 AM EDT Clinical Support [facility] MEDICINE [address] [place] [address] Azeb Hall RN 505 [place] [address] 07/15/2024 1:00 PM EDT Office Visit [facility] MEDICINE [address] [place] [address] Sariah Vickers ANP [address] [place] [address] 08/04/2024 10:00 AM EDT Medication Management [facility] MEDICINE 230 [place] [address] Yuri Pierre, PharmBear 230 [place] [address] 08/04/2024 1:00 PM EDT Office Visit [facility] ADULT DENTAL 230 [place] [address] Nuvia Duarte 230 [place] [address] documented as of this encounter Visit Diagnoses Not on filedocumented in this encounter Care Teams Assistant Spa Director Relationship Specialty Start Date End Date Sariah Vickers ANP [address] [place] [address] PCP - General Family Medicine 09/23/19 Yuri Pierre, PharmD [address] [place] [address] Pharmacist Internal Medicine 05/05/24 Basilio Hall MD [address] [place] [address] Cardiology 05/17/24 Ron Preciado MD [address] [place] [address] Pulmonary Disease 05/17/24 documented as of this encounter
--- OUTSIDE RECORDS SUMMARY | 2024-05-26 14:51 | XMS_ITS | Encounter Summary ---
Author Organization [facility] Address [address] [facility] 7t [place] [address] Care Team Providers Care Protective Clothing Issuer Name Role Phone Sariah Vickers Primary Care Provider [phone] Yuri Pierre PharmD Unavailable [phone] Basilio Hall MD Unavailable [phone] Ron Preciado MD Unavailable [phone] Reason for Visit * Reason Onset Date Comments Med Refill 02/04/2024 Encounter Details Date Type Department Care Team (Late st Contact Info) Description 02/04/2024 Telephone [facility] MEDICINE 230 [place] [address] Sariah Vickers ANP 230 [place], [place] [phone] Med Refill Social History Tobacco Use Types [...] 50 MG tablet To be sent to: [facility] - [place], [place] - [address] [place] [address] documented in this encounter Plan of Treatment Upcoming Encounters Date Type Department Care Team ([facility] st Contact Info) Description 07/02/2024 11:00 AM EDT Clinical Support [facility] MEDICINE [address] [place] [address] Azeb Hall, MARTIN 505 [place] [address] 07/15/2024 1:00 PM EDT Office Visit [facility] MEDICINE [address] [place] [address] Sariah Vickers ANP 230 [place] [address] 08/04/2024 10:00 AM EDT Medication Management [address] [address] Yuri Pierre, MikeD 230 [place] [address] 08/04/2024 1:00 PM EDT Office Visit [facility] ADULT DENTAL 230 [place] [address] Nuvia Duarte 230 [place] [address] documented as of this encounter Goals Goal Patient Goal Type Associated Problems Recent Progress Patient-Stated? Author Blood Pressure < 140/90 Blood Pressure 136/88(2024 11:28 AM EDT) No PhanisAida Cheng PharmBear Record Your Blood Sugar As Directed General No Aida Ragland PharmBear Hemoglobin A1c < 7 Result Component 6.6( 4 8:44 AM EST) No Aida Ragland PharmBear documented as of this encounter Visit Diagnoses Not on filedocumented in this encounter Additional Health Concerns Assessment Noted Time PHQ-9 Depression Total Score: 12 024 2:58 PM EDT documented as of this encounter Care Teams Protective Clothing Issuer Relationship Specialty Start Date End Date Sariah Vickers ANP 230 [place] [address] PCP - General Family Medicine 09/23/19 Yuri Pierre, PharmD 230 [place] [address] Pharmacist Internal Medicine 05/05/24 Basilio Hall MD 596 [place] [address] Cardiology 05/17/24 Ron Preciado MD [address] [place] [address] Pulmonary Disease 05/17/24 documented as of this encounter
--- OUTSIDE RECORDS SUMMARY | 2024-05-26 14:51 | XMS_ITS | Encounter Summary ---
Author Organization [employer] Address [address] [facility] 7t [place] [address] Care Team Providers Care Lapper Name Role Phone Sariah Vickers Primary Care Provider [phone] Yuri Pierre PharmD Unavailable [phone] Basilio Hall MD Unavailable [phone] Ron Preciado MD Unavailable [phone] Reason for Visit * Reason Comments Med Refill Encounter Details Date Type Department Care Team (Late st Contact Info) Description 03/09/2024 Refill [facility] CHC MED & PEDS [address] [place] [address] Sariah Vickers, KAYLEE 230 [place] [address] Neck pain Social History Tobacco Use Types [...] Description 07/02/2024 11:00 AM EDT Clinical Support [facility] MEDICINE [address] [place] [address] Azeb Hall, MARTIN 505 [place] [address] 07/15/2024 1:00 PM EDT Office Visit [facility] MEDICINE [address] [place] [address] Sariah Vickers ANP 230 [place] [address] 08/04/2024 10:00 AM EDT Medication Management [facility] MEDICINE [address] [place] [address] Yuri Pierre, PharmD [address] [place] [address] 08/04/2024 1:00 PM EDT Office Visit [facility] ADULT DENTAL [address] [place] [address] Nuvia Duarte 230 [place] [address] documented as of this encounter Goals Goal [...] documented as of this encounter Care Teams Lapper Relationship Specialty Start Date End Date Sariah Vickers ANP 230 [place] [address] PCP - General Family Medicine 09/23/19 Yuri Pierre, MikeD [address] [place] [address] Pharmacist Internal Medicine 05/05/24 Basilio Hall MD 596 [place] [address] Cardiology 05/17/24 Ron Preciado MD [address] [place] [address] Pulmonary Disease 05/17/24 documented as of this encounter
--- OUTSIDE RECORDS SUMMARY | 2024-05-26 14:51 | XMS_ITS | Encounter Summary ---
Author Organization [facility] Address [address] 7t [place] [address] Care Team Providers Care Agile Coach Name Role Phone Sariah Vickers Primary Care Provider [phone] Yuri Pierre PharmD Unavailable [phone] Basilio Hall MD Unavailable [phone] Ron Preciado MD Unavailable [phone] Reason for Visit * Reason Comments Med Refill Patient [facility] in [facility] pharmacy hasn't finished her Medbox due to missing refill for medication Gabapetin . Encounter Details Date Type Department Care Team (Late st Contact Info) Description 10/03/2023 Refill [facility] 230 [place], [place] [phone] Sariah Vickers ANP 230 [place], [place] [phone] Chronic SI joint pain Social History Tobacco [...] the past 12 months, has t he [employer], gas, oil or water [employer] threatened to shut off services in your [...] [facility] [address] [place] [address] Azeb Hall RN 505 [place] [address] 07/15/2024 1:00 PM EDT Office Visit [facility] [address] [place] [address] Sariah Vickers ANP 230 [place] [address] 08/04/2024 10:00 AM EDT Medication Management [facility] [address] [place] [address] Yuri Pierre, MikeD 230 [place] [address] 08/04/2024 1:00 PM EDT Office Visit [facility] 230 [place] [address] Nuvia Duarte 230 [place] [address] documented as of this encounter Goals Goal [...] documented as of this encounter Care Teams Agile Coach Relationship Specialty Start Date End Date Sariah Vickers ANP 230 [place] [address] PCP - General Family Medicine 09/23/19 Yuri Pierre, PharmD 230 [place] [address] Pharmacist Internal Medicine 05/05/24 Basilio Hall MD 596 [place] [address] Cardiology 05/17/24 Ron Preciado MD [address] [place] [address] Pulmonary Disease 05/17/24 documented as of this encounter
--- OUTSIDE RECORDS SUMMARY | 2024-05-26 14:51 | XMS_ITS | Encounter Summary ---
Author Organization [employer] Address [address] [facility] 7t [place] [address] Care Team Providers Care Greeting Card Editor Name Role Phone Sariah Vickers Primary Care Provider Yuri Pierre PharmD Unavailable [phone] Basilio Hall MD Unavailable [phone] Ron Preciado MD Unavailable [phone] Reason for Visit * Reason Comments Med Refill Encounter Details Date Type Department Care Team (Late st Contact Info) Description 09/13/2022 Refill [facility] [address] [place] [address] Sariah Vickers, ANP 230 [place] [address] Severe persistent allergic asthma without complication Social [...] Description 07/02/2024 11:00 AM EDT Clinical Support [address] [address] Azeb Hall RN 505 [place] [address] 07/15/2024 1:00 PM EDT Office Visit [facility] MEDICINE [address] [place] [address] aSriah Vickers ANP [address] [place] [address] 08/04/2024 10:00 AM EDT Medication Management [address] [address] Yuri Pierre, Dileep [address] [place] [address] 08/04/2024 1:00 PM EDT Office Visit [facility] ADULT DENTAL [address] [place] [address] Felicia, Nuvia [address] [place] [address] documented as of this encounter Visit Diagnoses Diagnosis Severe persistent allergic asthma without complication documented in this encounter Care Teams Greeting Card Editor Relationship Specialty Start Date End Date Sariah Vickers ANP [address] [place] [address] PCP - General Family Medicine 09/23/19 Yuri Pierre, PharmD [address] [place] [address] Pharmacist Internal Medicine 05/05/24 Basilio Hall MD 596 [place] [address] Cardiology 05/17/24 Ron Preciado MD [address] [place] [address] Pulmonary Disease 05/17/24 documented as of this encounter
--- OUTSIDE RECORDS SUMMARY | 2024-05-26 14:51 | XMS_ITS | Encounter Summary ---
Author Organization [facility] Address [address] [facility] 7t [place] [address] Care Team Providers Care Range Technician Name Role Phone Sariah Vickers Primary Care Provider [phone] Yuri Pierre PharmD Unavailable [phone] Basilio Hall MD Unavailable [phone] Ron Preciado MD Unavailable [phone] Encounter Details Date Type Department Care Team (Latest Contact Info) Description 06/20/2021 Abstract [facility] CONVERSIONS Dental, Provider, DDS Social History [...] Clinical Support [facility] MEDICINE [address] [place] [address] Azeb Hall RN 505 [place] [address] 07/15/2024 1:00 PM EDT Office Visit [facility] MEDICINE [address] [place] [address] Sariah Vickers ANP [address] [place] [address] 08/04/2024 10:00 AM EDT Medication Management [facility] MEDICINE 230 [place] [address] Yuri Pierre, PharmBear 230 [place] [address] 08/04/2024 1:00 PM EDT Office Visit [facility] ADULT DENTAL 230 [place] [address] Nuvia Duarte 230 [place] [address] documented as of this encounter Visit Diagnoses Not on filedocumented in this encounter Care Teams Range Technician Relationship Specialty Start Date End Date Sariah Vickers ANP [address] [place] [address] PCP - General Family Medicine 09/23/19 Yuri Pierre, PharmD [address] [place] [address] Pharmacist Internal Medicine 05/05/24 Basilio Hall MD [address] [place] [address] Cardiology 05/17/24 Ron Preciado MD [address] [place] [address] Pulmonary Disease 05/17/24 documented as of this encounter
--- OUTSIDE RECORDS SUMMARY | 2024-05-26 14:51 | XMS_ITS | Encounter Summary ---
Author Organization [facility] Address [address] [facility] 7t [place] [address] Care Team Providers Care Vulnerability Assessment Analyst Name Role Phone Sariah Vickers Primary Care Provider [phone] Yuri Pierre PharmD Unavailable [phone] Basilio Hall MD Unavailable [phone] Ron Preciado MD Unavailable [phone] Encounter Details Date Type Department Care Team (Late st Contact Info) Description 02/05/2022 Abstract [facility] MEDICINE 230 [place] [address] Sariah Vickers ANP 230 [place] [address] Social History Tobacco Use Types Packs/Day Years [...] Description 07/02/2024 11:00 AM EDT Clinical Support [address] [address] Azeb Hall, RN 505 [place] [address] 07/15/2024 1:00 PM EDT Office Visit [address] [address] Sariah Vickers ANP [address] [place] [address] 08/04/2024 10:00 AM EDT Medication Management [address] [address] Yuri Pierre, Dileep [address] [place] [address] 08/04/2024 1:00 PM EDT Office Visit [facility] ADULT DENTAL [address] [place] [address] FeliciaBrendanNuvia [address] [place] [address] documented as of this encounter Visit Diagnoses Not on filedocumented in this encounter Care Teams Vulnerability Assessment Analyst Relationship Specialty Start Date End Date Sariah Vickers ANP [address] [place] [address] PCP - General Family Medicine 09/23/19 Yuri Pierre, PharmD [address] [place] [address] Pharmacist Internal Medicine 05/05/24 Basilio Hall MD 596 [place] [address] Cardiology 05/17/24 Ron Preciado MD [address] [place] [address] Pulmonary Disease 05/17/24 documented as of this encounter
--- OUTSIDE RECORDS SUMMARY | 2024-05-26 14:51 | XMS_ITS | Encounter Summary ---
Author Organization [facility] Address [address] [facility] 7t [place] [address] Care Team Providers Care Keller 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 Name Role Phone Sariah Vickers Primary Care Provider [phone] Yuri Pierre PharmD Unavailable [phone] Basilio Hall MD Unavailable [phone] Ron Preciado MD Unavailable [phone] Reason for Visit * Reason Comments Med Refill Encounter Details Date Type Department Care Team (Late st Contact Info) Description 10/24/2023 Refill [facility] MED[facility] 230 [place] [address] Sariah Vickers ANP 230 [place] [address] Neck pain Social History Tobacco Use Types [...] Description 07/02/2024 11:00 AM EDT Clinical Support [facility] MEDICINE [address] [place] [address] Azeb Hall, RN 505 [place] [address] 07/15/2024 1:00 PM EDT Office Visit [facility] MEDICINE [address] [place] [address] Sariah Vickers, KAYLEE 230 [place] [address] 08/04/2024 10:00 AM EDT Medication Management [facility] MEDICINE [address] [place] [address] Yuri Pierre, PharmD [address] [place] [address] 08/04/2024 1:00 PM EDT Office Visit [facility] ADULT DENTAL [address] [place] [address] Nuvia Duarte 230 [place] [address] documented as of this encounter Goals Goal [...] documented as of this encounter Care Teams Keller 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 Relationship Specialty Start Date End Date Sariah Vickers ANP 230 [place] [address] PCP - General Family Medicine 09/23/19 Yuri Pierre PharmD 230 [place] [address] Pharmacist Internal Medicine 05/05/24 Basilio Hall MD 596 [place] [address] Cardiology 05/17/24 Ron Preciado MD [address] [place] [address] Pulmonary Disease 05/17/24 documented as of this encounter
--- OUTSIDE RECORDS SUMMARY | 2024-05-26 14:52 | XMS_ITS | Encounter Summary ---
Author Organization [employer] Address [address] [facility] 7t [place] [address] Care Team Providers Care Property Site Manager Name Role Phone Sariah Vickers Primary Care Provider [phone] Yuri Pierre PharmD Unavailable [phone] Basilio Hall MD Unavailable [phone] Ron Preciado MD Unavailable [phone] Reason for Visit * Reason Comments Med Refill Encounter Details Date Type Department Care Team (Late st Contact Info) Description 05/26/2024 Refill [facility] CH[facility] MED & PEDS [address] [place] [address] Sariah Vickers, KAYLEE 230 [place] [address] Cervicalgia Social History Tobacco Use Types Packs/Day [...] 07/02/2024 11:00 AM EDT Clinical Support [facility] MEDICINE [address] [place] [address] Azeb Hall, MARTIN 505 [place] [address] 07/15/2024 1:00 PM EDT Office Visit [facility] MEDICINE [address] [place] [address] Sariah Vickers ANP 230 [place] [address] 08/04/2024 10:00 AM EDT Medication Management [facility] MEDICINE [address] [place] [address] Yuri Pierre, PharmD [address] [place] [address] 08/04/2024 1:00 PM EDT Office Visit [facility] ADULT DENTAL [address] [place] [address] Nuvia Duarte 230 [place] [address] documented as of this encounter Goals Goal [...] as of this encounter Care Teams Property Site Manager Relationship Specialty Start Date End Date Sariah Vickers ANP 230 [place] [address] PCP - General Family Medicine 09/23/19 Yuri Pierre PharmD 230 [place] [address] Pharmacist Internal Medicine 05/05/24 Basilio Hall MD 596 [place] [address] Cardiology 05/17/24 Ron Preciado MD [address] [place] [address] Pulmonary Disease 05/17/24 documented as of this encounter
--- OUTSIDE RECORDS SUMMARY | 2024-05-26 14:52 | XMS_ITS | Encounter Summary ---
Author Organization [facility] Address [address] [facility] 7t [place] [address] Care Team Providers Care Interventional Physiatrist Name Role Phone Sariah Vickers Primary Care Provider [phone] Yuri Pierre PharmD Unavailable [phone] Basilio Hall MD Unavailable [phone] Ron Preciado MD Unavailable [phone] Reason for Visit * Reason Onset Date Comments Med Refill 03/04/2023 Encounter Details Date Type Department Care Team (Late st Contact Info) Description 03/04/2023 Telephone [facility] MEDICINE 230 [place], [place] [phone] Sariah Vickers ANP 230 [place], [place] [phone] Med Refill Social History Tobacco Use Types [...] is your housing situation today? I have rodrigocarlie kent 12/04/[address] you [...] 50 MG tablet To be sent to: [facility] - [place], [place] - [address] [place] [address] documented in this encounter Plan of Treatment Upcoming Encounters Date Type Department Care Team (Late st Contact Info) Description 07/02/2024 11:00 AM EDT Clinical Support [facility] MEDICINE [address] [place] [address] Azeb Hall RN 505 [place] [address] 07/15/2024 1:00 PM EDT Office Visit [facility] MEDICINE [address] [place] [address] Sariah Vickers, ANP [address] [place] [address] 08/04/2024 10:00 AM EDT Medication Management [facility] MEDICINE [address] [place] [address] Yuri Pierre, PharmD [address] [place] [address] 08/04/2024 1:00 PM EDT Office Visit [facility] ADULT DENTAL 230 [place] [address] Nuvia Duarte 230 [place] [address] documented as of this encounter Goals Goal [...] on filedocumented in this encounter Care Teams Interventional Physiatrist Relationship Specialty Start Date End Date Sariah Vickers ANP 230 [place] [address] PCP - General Family Medicine 09/23/19 Yuri Pierre, MikeD 230 [place] [address] Pharmacist Internal Medicine 05/05/24 Basilio Hall MD 596 [place] [address] Cardiology 05/17/24 Ron Preciado MD [address] [place] [address] Pulmonary Disease 05/17/24 documented as of this encounter
--- OUTSIDE RECORDS SUMMARY | 2024-05-26 14:52 | XMS_ITS | Encounter Summary ---
Author Organization [employer] Address [address] [facility] 7t [place] [address] Care Team Providers Care Construction Equipment Operator Name Role Phone Sariah Vickers Primary Care Provider [phone] Yuri Pierre PharmD Unavailable [phone] Basilio Hall MD Unavailable [phone] Ron Preciado MD Unavailable [phone] Reason for Visit * Reason Comments Med Refill Encounter Details Date Type Department Care Team (Late st Contact Info) Description 05/23/2024 Refill [facility] CHC MED & PEDS [address] [place] [address] Sariah Vickers, KAYLEE 230 [place] [address] Cervicalgia Social History Tobacco Use Types Packs/Day [...] Description 07/02/2024 11:00 AM EDT Clinical Support [facility] MEDICINE [address] [place] [address] Azeb Hall, MARTIN 505 [place] [address] 07/15/2024 1:00 PM EDT Office Visit [facility] MEDICINE [address] [place] [address] Sariah Vickers ANP 230 [place] [address] 08/04/2024 10:00 AM EDT Medication Management [facility] MEDICINE [address] [place] [address] Yuri Pierre, PharmD [address] [place] [address] 08/04/2024 1:00 PM EDT Office Visit [facility] ADULT DENTAL [address] [place] [address] Nuvia Duarte 230 [place] [address] documented as of this encounter Goals Goal [...] documented as of this encounter Care Teams Construction Equipment Operator Relationship Specialty Start Date End Date Sariah Vickers ANP 230 [place] [address] PCP - General Family Medicine 09/23/19 Yuri Pierre PharmD 230 [place] [address] Pharmacist Internal Medicine 05/05/24 Basilio Hall MD 596 [place] [address] Cardiology 05/17/24 Ron Preciado MD [address] [place] [address] Pulmonary Disease 05/17/24 documented as of this encounter
--- OUTSIDE RECORDS SUMMARY | 2024-05-26 14:52 | XMS_ITS | Encounter Summary ---
Author Organization [employer] [facility] Address [address] [facility] 7t [place] [address] Care Team Providers Care Valet Attendant Name Role Phone Sariah Vickers Primary Care Provider [phone] Yuri Pierre PharmD Unavailable [phone] Basilio Hall MD Unavailable [phone] Ron Preciado MD Unavailable [phone] Reason for Visit * Reason Comments Med Refill Encounter Details Date Type Department Care Team (Late st Contact Info) Description 07/10/[address] [facility] MEDICINE 230 [place] [address] Sariah Vickers ANP 230 [place] [address] Vertigo Social History Tobacco Use Types Packs/Day [...] Description 07/02/2024 11:00 AM EDT Clinical Support [address] [address] Azeb Hall, RN 505 [place] [address] 07/15/2024 1:00 PM EDT Office Visit [address] [address] Sariah Vickers ANP [address] [place] [address] 08/04/2024 10:00 AM EDT Medication Management [address] [address] Yuri Pierre, Dileep [address] [place] [address] 08/04/2024 1:00 PM EDT Office Visit [facility] ADULT DENTAL [address] [place] [address] Nuvia Duarte [address] [place] [address] documented as of this encounter Visit Diagnoses Diagnosis Vertigo Dizziness and giddiness documented in this encounter Care Teams Valet Attendant Relationship Specialty Start Date End Date Sariah Vickers ANP [address] [place] [address] PCP - General Family Medicine 09/23/19 Yuri Pierre, PharmD [address] [place] [address] Pharmacist Internal Medicine 05/05/24 Basilio Hall MD 5[address] [place] [address] Cardiology 05/17/24 Ron Preciado MD [address] [place] [address] Pulmonary Disease 05/17/24 documented as of this encounter
--- OUTSIDE RECORDS SUMMARY | 2024-05-26 14:52 | XMS_ITS | Encounter Summary ---
Author Organization [facility] Address [address] [facility] 7t [place] [address] Care Team Providers Care Software Business Analyst Name Role Phone Sariah Vickers Primary Care Provider [phone] Yuri Pierre PharmD Unavailable [phone] Basilio Hall MD Unavailable [phone] Ron Preciado MD Unavailable [phone] Reason for Visit * Reason Comments Med Refill Encounter Details Date Type Department Care Team (Late st Contact Info) Description 02/28/2023 Refill [facility] MEDICINE 230 [place] [address] Sariah Vickers ANP 230 [place] [address] Cervicalgia Social History Tobacco Use Types Packs/Day [...] 11:00 AM EDT Clinical Support [facility] MEDICINE [address] [place] [address] Azeb Hall, MARTIN 505 [place] [address] 07/15/2024 1:00 PM EDT Office Visit [facility] MEDICINE [address] [place] [address] Sariah Vickers, ANP 230 [place] [address] 08/04/2024 10:00 AM EDT Medication Management [facility] MED[facility]INE [address] [place] [address] Yuri Pierre, PharmD [address] [place] [address] 08/04/2024 1:00 PM EDT Office Visit [facility] ADULT DENTAL [address] [place] [address] Nuvia Duarte 230 [place] [address] documented as of this encounter Goals Goal [...] Cervicalgia documented in this encounter Care Teams Software Business Analyst Relationship Specialty Start Date End Date Sariah Vickers ANP 230 [place] [address] PCP - General Family Medicine 09/23/19 Yuri Pierre, MikeD 230 [place] [address] Pharmacist Internal Medicine 05/05/24 Basilio Hall MD 596 [place] [address] Cardiology 05/17/24 Ron Preciado MD [address] [place] [address] Pulmonary Disease 05/17/24 documented as of this encounter
--- OUTSIDE RECORDS SUMMARY | 2024-05-26 14:52 | XMS_ITS | Clinical Summary ---
Author Organization [facility] Address [address] [place] [address] Phone Care Team Providers Care Electrical Equipment Technician Name Role Phone Sariah Vickers NP Primary Care Provider [phone] Social History Tobacco Use Types Packs/Day Years [...] Td or Tdap) 07/08/2028 07/08/2018 RSV Immunization Adult Patie nts (1 - 1-dose 75+ series) 08/06/2035 HIB [...] age to complete this topic Meningococcal B Vaccine Aged Out No l onger eligible based on patient's age to complete [...] age to complete this topic Care Teams Electrical Equipment Technician Relationship Specialty Start Date End Date Sariah Vickers NP [address] [place] [phone] PCP - General 12/03/23
--- OUTSIDE RECORDS SUMMARY | 2024-05-26 14:52 | XMS_ITS | Encounter Summary ---
Author Organization [facility] Address [address] [facility] 7t [place] [address] Care Team Providers Care Fighter Pilot Name Role Phone Sariah Vickers Primary Care Provider Yuri Pierre PharmD Unavailable [phone] Basilio Hall MD Unavailable [phone] Ron Preciado MD Unavailable [phone] Reason for Visit * Reason Comments Med Refill Encounter Details Date Type Department Care Team (Late st Contact Info) Description 12/19/[address] [facility] MEDICINE 230 [place] [address] Sariah Vickers ANP 230 [place] [address] Vertigo Social History Tobacco Use Types Packs/Day [...] 07/02/2024 11:00 AM EDT Clinical Support [facility] MEDICINE [address] [place] [address] Azeb Hall, MARTIN 505 [place] [address] 07/15/2024 1:00 PM EDT Office Visit [facility] MEDICINE [address] [place] [address] Sariah Vickers, ANP 230 [place] [address] 08/04/2024 10:00 AM EDT Medication Management [facility] MED[facility]INE [address] [place] [address] Yuri Pierre, PharmD [address] [place] [address] 08/04/2024 1:00 PM EDT Office Visit [facility] ADULT DENTAL [address] [place] [address] Nuvia Duarte 230 [place] [address] documented as of this encounter Goals Goal [...] giddiness documented in this encounter Care Teams Fighter Pilot Relationship Specialty Start Date End Date Sariah Vickers ANP 230 [place] [address] PCP - General Family Medicine 09/23/19 Yuri Pierre, MikeD [address] [place] [address] Pharmacist Internal Medicine 05/05/24 Basilio Hall MD [address] [place] [address] Cardiology 05/17/24 Ron Preciado MD [address] [place] [address] Pulmonary Disease 05/17/24 documented as of this encounter
--- OUTSIDE RECORDS SUMMARY | 2024-05-26 14:52 | XMS_ITS | Encounter Summary ---
Author Organization [employer] Address [address] [facility] 7t [place] [address] Care Team Providers Care Learning Solutions Specialist Name Role Phone Sariah Vickers Primary Care Provider [phone] Yuri Pierre PharmD Unavailable [phone] Basilio Hall MD Unavailable [phone] Ron Preciado MD Unavailable [phone] Reason for Visit * Reason Comments Med Refill Encounter Details Date Type Department Care Team (Late st Contact Info) Description 08/14/2022 Refill [facility] [address] [place] [address] Sariah Vickers, ANP 230 [place] [address] Severe persistent asthma without complication Social History [...] Description 07/02/2024 11:00 AM EDT Clinical Support [address] [address] Azeb Hall RN 505 [place] [address] 07/15/2024 1:00 PM EDT Office Visit [facility] MEDICINE [address] [place] [address] Sariah Vickers ANP [address] [place] [address] 08/04/2024 10:00 AM EDT Medication Management [address] [address] Yuri Pierre, Dileep [address] [place] [address] 08/04/2024 1:00 PM EDT Office Visit [facility] ADULT DENTAL [address] [place] [address] Felicia, Nuvia [address] [place] [address] documented as of this encounter Visit Diagnoses Diagnosis Severe persistent asthma without complication documented in this encounter Care Teams Learning Solutions Specialist Relationship Specialty Start Date End Date Sariah Vickers ANP [address] [place] [address] PCP - General Family Medicine 09/23/19 Yuri Pierre, PharmD [address] [place] [address] Pharmacist Internal Medicine 05/05/24 Basilio Hall MD 5[address] [place] [address] Cardiology 05/17/24 Ron Preciado MD [address] [place] [address] Pulmonary Disease 05/17/24 documented as of this encounter
--- OUTSIDE RECORDS SUMMARY | 2024-05-26 14:52 | XMS_ITS | Encounter Summary ---
Author Organization [facility] Address [address] [facility] 7t [place] [address] Care Team Providers Care Model Dresser Name Role Phone Sariah Vickers Primary Care Provider [phone] Yuri Pierre PharmD Unavailable [phone] Basilio Hall MD Unavailable [phone] Ron Preciado MD Unavailable [phone] Reason for Visit * Reason Onset Date Comments Referral 05/17/2022 Encounter Details Date Type Department Care Team (Late st Contact Info) Description 05/17/2022 Telephone [facility] MEDICINE [address] [place] [address] Sariah Vickers ANP [address] [place] [address] Referral Social History Tobacco Use Types Packs/Day [...] guide to vertigo. Please contact pt at [phone] documented in this encounter Plan of Treatment Upcoming Encounters Date Type Department Care Team (Late st Contact Info) Description 07/02/2024 11:00 AM EDT Clinical Support [address] [address] Azeb Hall RN 505 [place] [address] 07/15/2024 1:00 PM EDT Office Visit [facility] MEDICINE [address] [place] [address] Sariah Vickers ANP 230 [place] [address] 08/04/2024 10:00 AM EDT Medication Management [address] [address] Yuri Pierre PharmD [address] [place] [address] 08/04/2024 1:00 PM EDT Office Visit [facility] ADULT DENTAL [address] [place] [address] Brendan Duartearis [address] [place] [address] documented as of this encounter Visit Diagnoses Not on filedocumented in this encounter Care Teams Model Dresser Relationship Specialty Start Date End Date Sariah Vickers ANP [address] [place] [address] PCP - General Family Medicine 09/23/19 Yuri Pierre, MikeD [address] [place] [address] Pharmacist Internal Medicine 05/05/24 Basilio Hall MD [address] [place] [address] Cardiology 05/17/24 Ron Preciado MD [address] [place] [address] Pulmonary Disease 05/17/24 documented as of this encounter
--- OUTSIDE RECORDS SUMMARY | 2024-05-26 14:52 | XMS_ITS | Encounter Summary ---
Author Organization [facility] Address 75 [facility] 7t [place] [address] Care Team Providers Care Extract Operator Name Role Phone Sariah Vickers Primary Care Provider [phone] Yuri Pierre PharmD Unavailable [phone] Basilio Hall MD Unavailable [phone] Ron Preciado MD Unavailable [phone] Reason for Visit * Reason Comments Med Refill Encounter Details Date Type Department Care Team (Late st Contact Info) Description 05/21/2023 Refill [facility] 230 [place] [address] Sariah Vickers ANP [address] [place] [address] Neck pain Social History Tobacco Use Types [...] Description 07/02/2024 11:00 AM EDT Clinical Support [facility] [address] [place] [address] Azeb Hall, RN 505 [place] [address] 07/15/2024 1:00 PM EDT Office Visit [facility] [address] [place] [address] Sariah Vickers, KAYLEE [address] [place] [address] 08/04/2024 10:00 AM EDT Medication Management [facility] [address] [place] [address] Yuri Pierre, PharmD [address] [place] [address] 08/04/2024 1:00 PM EDT Office Visit [facility] ADULT DENTAL 230 [place] [address] Nuvia Duarte 230 [place] [address] documented as of this encounter Goals Goal Patient Goal Type Associated Problems Recent Progress Patient-Stated? Author Blood Pressure < 140/90 Blood Pressure 136/88(2024 11:28 AM EDT) No Phanis-Gambl Veronica urbinasa, PharmD Record Your Blood Sugar As Directed General No Piers-Gambl Veronica urbinasa, PharmD Hemoglobin A1c < 7 Result Component 6.6( 8:44 AM EST) No Piers-Gambl Aida urbina, PharmD documented as of this encounter Visit Diagnoses Diagnosis Neck pain Cervicalgia documented in this encounter Care Teams Extract Operator Relationship Specialty Start Date End Date Sariah Vickers ANP [address] [place] [address] PCP - General Family Medicine 09/23/19 Yuri Pierre, MikeD [address] [place] [address] Pharmacist Internal Medicine 05/05/24 Basilio Hall MD [address] [place] [address] Cardiology 05/17/24 Ron Preciado MD [address] [place] [address] Pulmonary Disease 05/17/24 documented as of this encounter
--- OUTSIDE RECORDS SUMMARY | 2024-05-26 14:52 | XMS_ITS | Encounter Summary ---
Author Organization [email or web address] [facility] Address [address] [facility] 7t [place] [address] Care Team Providers Care Neon Molder Name Role Phone Sariah Vickers Primary Care Provider Yuri Pierre PharmD Unavailable [phone] Basilio Hall MD Unavailable [phone] Ron Preciado MD Unavailable [phone] Reason for Visit * Reason Comments Med Refill Encounter Details Date Type Department Care Team (Late st Contact Info) Description 07/17/2022 Refill [facility] [address] [place] [address] Sariah Vickers ANP 230 [place] [address] Neck pain Social History Tobacco Use Types [...] Description 07/02/2024 11:00 AM EDT Clinical Support [address] [address] Azeb Hall, RN 505 [place] [address] 07/15/2024 1:00 PM EDT Office Visit [facility] [address] [place] [address] Sariah Vickers ANP [address] [place] [address] 08/04/2024 10:00 AM EDT Medication Management [address] [address] Yuri Pierre, Dileep [address] [place] [address] 08/04/2024 1:00 PM EDT Office Visit [facility] ADULT DENTAL [address] [place] [address] Nuvia Duarte [address] [place] [address] documented as of this encounter Visit Diagnoses Diagnosis Neck pain Cervicalgia documented in this encounter Care Teams Neon Molder Relationship Specialty Start Date End Date Sariah Vickers ANP [address] [place] [address] PCP - General Family Medicine 09/23/19 Yuri Pierre, PharmD [address] [place] [address] Pharmacist Internal Medicine 05/05/24 Basilio Hall MD 596 [place] [address] Cardiology 05/17/24 Ron Preciado MD [address] [place] [address] Pulmonary Disease 05/17/24 documented as of this encounter
--- OUTSIDE RECORDS SUMMARY | 2024-05-26 14:52 | XMS_ITS | Encounter Summary ---
Author Organization [employer] Address [address] [facility] 7t [place] [address] Care Team Providers Care Warehouse Receiving Supervisor Name Role Phone Sariah Vickers Primary Care Provider [phone] Yuri Pierre PharmD Unavailable [phone] Basilio Hall MD Unavailable [phone] Ron Preciado MD Unavailable [phone] Encounter Details Date Type Department Care Team (Late st Contact Info) Description 05/21/2024 Telephone [facility] [address] [place] [address] Sariah Vickers ANP [address] [place] [address] Social History Tobacco Use Types Packs/Day Years [...] Telephone Encounter - Yuri Pierre PharmD - 05/26/2024 11:47 AM EDT Pharmacy received message from [facility] that Sensor PA request will not be processed as CGM not a covered under pharmacy benefit program. Requested that PA specialist submit physician order with PCP note to [facility] (medical supply pharmacy). * Telephone Encounter - Yuri Pierre PharmD - 05/21/2024 3:11 PM EDT CGM PA submitted 05/13/2024, but prescription not billable at pharmacy. Pharmacist notices discrepancies in the form. Sending electronic prescription for Jalil 2 plus sensor to [facility] pharmacy with PCP name to resubmit form to [facility] today 05/21/2024. documented in this encounter Plan of Treatment Upcoming Encounters Date Type Department Care Team (Late st Contact Info) Description 07/02/2024 11:00 AM EDT Clinical Support [facility] [address] [place] [phone] Azeb Hall, MARTIN [address] [place], [place] [phone] 07/15/2024 1:00 PM EDT Office Visit [facility] [address] [place] [address] Sariah Vickers ANP [address] [place] [address] 08/04/2024 10:00 AM EDT Medication Management [facility] [address] [place] [address] Yuri Pierre, Dileep [address] [place] [address] 08/04/2024 1:00 PM EDT Office Visit [facility] ADULT DENTAL [address] [place] [address] Nuvia Duarte [address] [place] [address] documented as of this encounter Goals Goal [...] Type 2 diabetes mellitus with hyperlipidemia (CMS/HCC) ([facility]) documented in this encounter Additional Health Concerns Assessment Noted Time PHQ-9 Depression Total Score: 12 024 2:58 PM EDT documented as of this encounter Care Teams Warehouse Receiving Supervisor Relationship Specialty Start Date End Date Sariah Vickers ANP [address] [place] [address] PCP - General Family Medicine 09/23/19 Yuri Pierre, Dileep [address] [place] [address] Pharmacist Internal Medicine 05/05/24 Basilio Hall MD [address] [place] [address] Cardiology 05/17/24 Ron Preciado MD [address] [place] [address] Pulmonary Disease 05/17/24 documented as of this encounter
--- OUTSIDE RECORDS SUMMARY | 2024-05-26 14:52 | XMS_ITS | Clinical Summary ---
Author Organization [employer] Address [address] [place] [address] Care Team Providers Care Mobile Practice Lead Name Role Phone Anthony Ruiz KAYLEE Primary Care Provider [phone] Yuri Pierre PharmD Unavailable [phone] Basilio Hall MD Unavailable [phone] Ron Preciado MD Unavailable [phone] Allergies Active Allergy Reactions Criticality Noted Date [...] mouth in the morning. Active Lactobacillus-In ulin ([facility]) capsule TAKE 1 CAPSULE BY MOUTH [...] neuropathy, with long-term current use of insulin ([facility]) USE 1 SPRAY (3MG) IN ONE NOSTRIL FOR A PATIENT WITH SEVERE HYPOGLYCEMIA WHO IS NOT RESPONSIVE AND UNABLE SELF-TREAT WITH GLUCOSE. AFTERWARDS TURN ON SIDE. MAY REPEAT IN 15MINUTES IF PATIENT DOES NOT RESPOND. 2 each 1 024 Active insulin lispro (HumaLOG KWIKPEN) 100 UNIT/ML injectionIndicat ions:Type 2 diabetes mellitus with hyperlipidemia (CMS/HCC) ([facility]) Inject 2 Units under the skin with breakfast, with lunch, and with evening meal. As needed as directed by provider 6 mL 1 024 Active Diclofenac Sodium 1 % gelIndications:C hronic bilateral low back pain, unspecified whether sciatica present APPLY 2 GRAMS TOPICALLY TO AFFECTED AREA(S) ONCE DAILY NEEDED FOR PAIN 100 g 1 024 Active glucose 4 g chewable tabletIndication s:Type 2 diabetes mellitus with hyperlipidemia (CMS/HCC) ([facility]) CHEW 4 TABLETS BY MOUTH NEEDED LOW FOR BLOOD SUGAR 50 tablet 12 024 Active Ozempic, 0.25 or 0.5 MG/DOSE, 2 MG/3ML solution pen-injectorIndi cations:Type 2 diabetes mellitus with hyperlipidemia (CMS/HCC) ([facility]) INJECT 0.5 MG SUBCUTANEOUSLY [...] 60 each 5 025 Active Continuous Glucose Simulation Tech (FreeStyle Jalil 2 [place]) deviceIndication s:Type 2 diabetes mellitus with hyperlipidemia (CMS/HCC) ([facility]) Use to check blood [...] THE EVENING 180 tablet 1 025 Active busPIRone (Buspar) 10 MG tablet Take 10 mg by mouth 3 times daily. Active BD Pen Needle Lorna U/F 32G X 4 MM miscIndications: Type 2 diabetes mellitus with hyperlipidemia (CMS/HCC) ([facility]) USE DIRECTED THREE TIMES DAILY 100 each 5 025 Active Continuous Glucose Sensor (FreeStyle Jalil 2 Plus Sensor) miscIndications: Type 2 diabetes mellitus with hyperlipidemia (CMS/HCC) ([facility]) Apply 1 each topically every 15 days. Use to check blood sugar every 8 hours as directed. 2 each Active Blood Glucose Monitoring Suppl (FreeStyle Chapman Lite) w/Device kit USE DIRECTED 023 2024 Discontinued(M ed list cleanup (will not trigger notification to Pharmacy)) famotidine (Pepcid) 20 MG tabletIndication s:Heartburn Take 1 tablet (20 mg) by mouth 2 times daily. 60 tablet 023 2024 Discontinued(M ed list cleanup (will not trigger notification to Pharmacy)) metoclopramide (Reglan) 10 MG tablet TAKE 1 TABLET BY MOUTH THREE TIMES DAILY 023 2024 Discontinued(M ed list cleanup (will not trigger notification to Pharmacy)) busPIRone (Buspar) 15 MG tablet Take 15 mg by mouth 3 times daily. 024 2024 Discontinued(D ose adjustment) TechLite Plus Pen Lee 32G X 4 MM miscIndications: Type 2 diabetes mellitus with hyperlipidemia (CMS/HCC) ([facility]) USE DIRECTED THREE TIMES DAILY 100 each 5 024 2024 Discontinued atorvastatin (Lipitor) 80 MG tabletIndication s:High cholesterol [...] Type 2 diabetes mellitus with hyperlipidemia (CMS/HCC) ([facility]) Apply 1 sensor every 14 days 2 each 025 2024 Discontinued(A lternate therapy) traMADol (Ultram) 50 MG tabletIndication s:Cervicalgia TAKE 1 TABLET BY MOUTH EVERY TWELVE HOURS NEEDED FOR SEVERE PAIN 60 tablet 025 2024 Discontinued methylPREDNISolo ne (Medrol Dospak) 4 MG tablets Follow schedule on package instructions 21 tablet 025 2024 Discontinued(M ed list cleanup (will not trigger notification to Pharmacy)) Continuous Glucose Sensor (FreeStyle Jalil 2 Plus Sensor) miscIndications: Type 2 diabetes mellitus with hyperlipidemia ([facility]/HCC) ([facility]) Apply 1 each topically every 15 days. Use to check blood sugar every 8 hours as directed. 2 each 025 2024 Discontinued(R eorder (will not trigger [...] 02/13/2024 Kidney stone on left side 02/13/2024 Type 2 diabetes mellitus 02/13/2024 COVID-19 [...] family. She will continue services with [facility] for OP therapy and psychiatry services. clinician will be available if needed during next medical appointment. PLAN: (check all that apply) Continue with current services (defined as services in the past 12 months) . Pt is engaged with OP therapy and psychiatry services with [facility] Excessive attrition of teeth, generalized 2023 Right bundle branch block 09/04/2023 Assessment & [...] History of COVID-19 07/31/2022 Ectatic aorta 07/31/2022 Overview (05/17/2024): Abdominal CT 08/2023 Incidental note made of 3.1 cm infrarenal abdominal aortic aneurysm Abnormal Echo 04/28/2024 EF 60-65, aortic valve mildly calcified, mild thickening of the anterior & posterior mitral valve leaflets, aortic root and ascending aorta dilated up to 3.8cm and 4.2cm, evidence of communication between left and right atria at the level of the foramen ovale, and interatrial septal aneurysm, this is a positive bubble study Hemorrhoids 07/31/2022 Environmental allergies 07/31/2022 High cholesterol [...] extremity with infl ammation 07/31/2022 Weakness 07/31/2022 Nausea 07/31/2022 Depression with anxiety 07/31/2022 PTSD [...] family. She will continue services with [facility] for OP therapy and psychiatry services. clinician will be available if needed during next medical appointment. PLAN: (check all that apply) Continue with current services (defined as services in the past 12 months) . Pt is engaged with OP therapy and psychiatry services with [facility] Fibromyalgia 07/31/2022 Asthma-COPD overlap syndrome 07/31/2022 Right foot pain 06/21/2022 Assessment & [...] for possible plantar fasciitis -referred today to brick tester x ongoing discomfort -may need orthopedic shoes [...] individual therapy and psychiatry with [facility] at [facility]. Sees psych provider every two months and therapist bi-weekly. Pt will reach out to clinician as needed. Assessment & Plan (04/10/2023 11:08 AM EST): PLAN: (check all that apply) Behavioral Health Integration Plan Patient Self Plan Patient to reach out to [facility] team as needed Assessment & [...] Problem Noted Date Diagnosed Date Resolved Date Acute cough 09/04/2023 05/17/2024 Otitis externa of right ear 09/04/2022 10/29/2022 [...] infection 07/31/2022 10/29/2022 Acute asthma exacerbation 07/31/2022 COPD exacerbation 07/31/2022 05/17/2024 Assessment & Plan (10/27/2023 4:48 PM EDT): [...] importance of using Aspart inulin ac meals GERD (gastroesophageal reflux disease) 07/31/2022 10/29/2022 Bronchitis [...] Encounters Date Type Department Care Team Description 05/26/2024 Refill [facility] [address] [place] [address] Anthony Ruiz ANP Cervicalgia 05/23/2024 Refill [facility] [address] [place] [address] Anthony Ruiz ANP Cervicalgia 05/21/2024 Telephone [facility] [address] [place] [address] Anthony Ruiz ANP 05/17/2024 Refill [facility] [address] [place], [place] [phone] Anthony Ruiz ANP Type 2 diabetes mellitus with hyperlipidemia (CMS/HCC) 05/12/[address] [address] Yohana Quinn, RN CGM Documentation 05/07/[address] [address] Anthony Ruiz ANP Prior Authorization 05/04/[address] [address] Anthony Ruiz ANP Prior Authorization 05/02/[address] [address] Anthony Ruiz ANP High cholesterol 04/29/[address] [address] Anthony Ruiz ANP Referral 04/29/2024 Travel 04/26/2024 Refill [facility] [address] [place] [address] Anthony Ruiz ANP Cervicalgia 04/23/2024 11:30 AM EST Clinical Support [address] [address] Azeb Hall, MARTIN Long-term current use of opiate analgesic 04/23/2024 Telephone [facility] [address] [place] [address] Azeb Hall RN 04/23/2024 Travel 04/21/2024 Telephone [facility] [address] [place] [phone] Chava Presley MD 04/20/2024 11:00 AM EST Office Visit [facility] [address] [address] Chava Presley MD Posterior chest pain (Primary Dx); Asthma-COPD overlap syndrome ([facility]); Neck pain 04/20/2024 Orders Only [facility] [address] [address] Chava Presley MD 04/15/2024 1:30 PM EST Office Visit [address] [address] Anthony Ruiz ANP Umbilical hernia without obstruction and without gangrene (Primary Dx); Type 2 diabetes mellitus with hyperlipidemia (CMS/HCC) ([facility]); Acute cough; Severe persistent allergic asthma; Allergy to fish 04/15/2024 Travel 04/12/2024 Orders Only [facility] External Provider, [facility] 04/12/2024 Telephone [facility] [address] [place] [phone] Anthony Ruiz ANP Chart Prep 04/06/2024 Telephone [facility] [address] [place] [address] Anthony Ruiz ANP Nurse Triage 04/06/2024 Refill [facility] [address] [place] [phone] Anthony Ruiz ANP Severe persistent asthma without complication 04/02/2024 Refill [facility] [address] [place] [address] Anthony Ruiz ANP Neck pain 04/02/2024 Refill [facility] [address] [place] [address] Anthony Ruiz ANP Essential hypertension; Chronic SI joint pain; Chronic bilateral low back pain, unspecified whether sciatica present 04/01/2024 Refill [facility] [address] [place] [phone] Anthony Ruiz ANP Type 2 diabetes mellitus with hyperlipidemia (CMS/HCC) ([facility]) (Primary Dx) 03/29/2024 Telephone [facility] [address] [place] [phone] Candy Bains, RANCH RIDER Follow-up 03/29/2024 Orders Only [facility] [address] [place] [address] Anthony Ruiz ANP 03/28/2024 Refill [facility] [address] [place] [address] Anthony Ruiz ANP Cervicalgia 03/20/2024 Orders Only GENERIC EXTERNAL DATA DEPARTMENT Provider, Generic External Data 03/18/2024 Orders Only [facility] [address] [place] [phone] Waldo Rojas MD Essential hypertension (Primary Dx) 03/17/2024 1:30 PM EST Office Visit [facility] [address] [place] [address] Anthony Ruiz ANP Type 2 diabetes mellitus with hyperlipidemia (CMS/HCC) (Primary Dx); Abscess 03/17/2024 Telephone [facility] [address] [place] [address] Anthony Ruiz ANP 03/17/2024 Travel 03/15/[address] [address] Candy Bains RN Paperwork/Forms 03/13/2024 Refill [facility] [address] [place] [address] Anthony Ruiz ANP Severe persistent asthma without complication 03/12/[address] [address] Anthony Ruiz ANP status check abscess 03/09/2024 Refill [facility] [address] [place], [place] [phone] Anthony Ruiz ANP Neck pain 03/03/2024 3:30 PM EST Office Visit [address] [address] Anthony Ruiz ANP Panniculitis affecting sacrum (Primary Dx); Abscess; Spondylosis of lumbar region without myelopathy or radiculopathy 03/03/2024 Travel 03/03/2024 Refill [facility] [address] [place] [address] Anthony Ruiz ANP 03/02/[address] [address] Day Pool [place] chart prep 03/01/[address] [address] Anthony Ruiz ANP Durable Medical Equipment 03/01/2024 Refill [facility] [address] [place] [address] Anthony Ruiz ANP Cervicalgia from Last 3 Months Immunizations Name Administration [...] 07/02/2024 11:00 AM EDT Clinical Support [facility] [address] [place] [address] Azeb Hall RN [address] [place] [address] 07/15/2024 1:00 PM EDT Office Visit [facility] [address] [place] [phone] Anthony Ruiz ANP [address] [place] [address] 08/04/2024 10:00 AM EDT Medication Management [facility] [address] [place] [address] Yuri Pierre, PharmD [address] [place] [address] 08/04/2024 1:00 PM EDT Office Visit [facility] [address] [place] [address] Felicia Nuvia [address] [place] [address] Health Maintenance Due Date Last Done Comments [...] 1 VIEW Routine 02/29/2024 1:36 PM EST ALBUMIN, RANDOM URINE W/CREATININE Routine [...] - 04/23/2024 10:56 AM EST .UT[employer] cup Lot#[id number] Exp. 10/06/25 Internal Pass Control negative AMP, BAR, BUP, BZO, RENETTA, FTY, MDMA, MET, MOP, MTD, OXY, PCP, TCA, THC. us Anthony PAGE POINT OF CARE TEST ENTER/EDIT OR DERABLES Edited Result - Final * D Dimer High Sensitivity (04/20/2024 1:21 PM EST) D Dimer High Sensitivity 218 NG/ML [facility] Comment:D-DIMER HS REFERENCE RANGENote: Our [...] MD LAB BLOOD ORDERABLES Final Resul t [facility] [address] [place] [phone] * XR Chest 2 Views (04/20/2024 1:05 PM EST) Anatomical Region Laterality Modality Chest Radiographic Griselda ging 04/20/2024 1:05 PM EST Narrative 04/21/2024 9:57 AM EST ? [facility] ?[address] ?[place] [address] ?XRay Report ? Signed ? Patient: Nuvia Fay ?MR ?? #: [id number] ? : 1960 ?Acct:[id number] ? Age/Sex: 63 / F ?ADM Date: 03/04/25 ? Loc: HO.XRAY ? Attending Dr: Chava Presley MD ? Ordering Physician: CHAVA PRESLEY MD ?? Date of Service: 04/20/24 ?? Procedure(s): XR chest 2V ?? Accession Number(s): [id number] ? cc: CHAVA PRESLEY MD; ANTOHNY RUIZ NP ? EXAMINATION: ?? XR CHEST [...] DD/ 1305 ? TD/TT: 04/20/24 1310 ? Wireline Supervisor: MSM ? Procedure Note Donconnerter, Image - 04/21/[address] [address] XRay Report Signed Patient: Nuvia Fay EMR #: [id number] : 1960cct:[id number] Age/Sex: 63 / FADM Date: 04/20/24 Loc: ADRIA Attending Dr: Chava Presley MD Ordering Physician: CHAVA PRESLEY MD Date of Service: 04/20/24 Procedure(s): XR chest 2V Accession Number(s): [id number] cc: CHAVA PRESLEY MD; ANTHONY RUIZ NP [...] 04/21/24 0954 DD/ 1305 TD/TT: 04/20/24 1310 Wireline Supervisor: NANCY Chava Presley MD IMG XR PROCEDURES Edited Result - Final * POCT Rapid Influenza B BAILEY ID NOW (04/15/2024 2:02 PM EST) Influenza B Negative Negative, Indeterminate [facility] QC Media Lot # [id number] [facility] Lot# Expiration Date [facility] Swab 04/15/2024 2:02 PM EST Anthony Ruiz ANP POINT OF CARE TEST ENTER/EDIT OR DERABLES Final Result Performing Organization Address [facility] de Phone Number [facility] [address] [place] [phone] * POCT Rapid Covid-19 BinaxNOW (04/15/2024 2:01 PM EST) Rapid COVID Ag Negative QC Media Lot # [id number] Lot# Expiration Date Swab 04/15/2024 2:01 PM EST Anthony Ruiz ANP POINT OF CARE TEST ENTER/EDIT OR DERABLES Final Result * POCT Rapid Influenza A BAILEY ID NOW (04/15/2024 1:59 PM EST) Influenza A Negative Negative, Indeterminate [facility] QC Media Lot # [id number] [facility] Lot# Expiration Date [facility] Swab 04/15/2024 1:59 PM EST Anthony Ruiz ANP POINT OF CARE TEST ENTER/EDIT OR DERABLES Edited Result - Final Performing Organization Address [facility]/ZIP Co de Phone Number [facility] [address] [place] [phone] * BI Mammogram Screening Tomosynthesis Bilateral (04/12/2024 1:48 PM EST) Anatomical Region Laterality Modality Breast Bilateral Mammography 04/12/2024 1:48 PM EST Narrative 04/17/2024 12:38 PM EST ? [facility] ? [address] ?[place] [address] ? Mammography Report ? Signed ? Patient: Nuvia Fay ?MR ?? #: [id number] ? : 1960 ?Acct:[id number] ? Age/Sex: 63 / F ?ADM Date: 04/12/24 ? Loc: HO.MAMMO ? Attending Dr: Monica Lozano CNM ? Ordering Physician: Monica Lozano CNM ?Results: 2Beni ?? gn Findings ? Date of Service: 04/12/24 ?Follow Up: 1 Year From Orig ?? inal Mammogram ? Procedure(s): MM tomosynthesis screening BI ?? Accession Number(s): [id number] ? cc: Monica Lozano CNM; ANTHONY RUIZ [...] DD/ 1348 ? TD/TT: 04/12/24 1405 ? Wireline Supervisor: ? Procedure Note Otoniel, Vinicius - 04/17/2024 [facility] [address] [place] [address] Mammography Report Signed Patient: Nuvia Fay EMR #: [id number] : 1960cct:[id number] Age/Sex: 63 / FADM Date: 04/12/24 Loc: HOGaryMAMMO Attending Dr: Monica Lozano CNM Ordering Physician: Monica Lozanoesults: 2Beni gn Findings Date of Service: 04/12/24Follow Up: 1 Year From Orig inal Mammogram Procedure(s): MM tomosynthesis screening BI Accession Number(s): [id number] cc: Monica Lozano CNM; ANTHONY RUIZ NP [...] 04/17/24 1235 DD/ 1348 TD/TT: 04/12/24 1405 Wireline Supervisor: [facility] External Provider IMG BI PROCEDURES Edited Result - Final * CT Abdomen Pelvis w/ Contrast (03/20/2024 7:20 PM EST) Anatomical Region Laterality Modality Body, Pelvis, Abdomen Computed T omography 03/20/2024 7:20 PM EST Narrative 03/20/2024 7:23 PM EST ? [facility] ?[address] ?[place] [address] ? CT Scan Report ? Signed ? Patient: Nuvia Fay ?MR ?? #: [id number] ? : 1960 ?Acct:[id number] ? Age/Sex: 63 / F ?ADM Date: 02/01/25 ? Loc: HO.ED ? Attending Dr: ? Ordering Physician: Maritza Mckeon ?? Date of Service: 03/20/24 ?? Procedure(s): CT abdomen pelvis w IV con ?? Accession Number(s): [id number] ? cc: Maritza Mckeon; ANTHONY RUIZ NP ? Report Number: ?? [id number]: Total DLP = ??844.00 mGy-cm ? CLINICAL HISTORY: abdominal wall cellulitis ?? abscess ? CT abdomen and pelvis with contrast ? Comparison: CT/OK/SR - CT ABDOMEN WO/W IV CON - [...] ? DD/ 19 ? TD/TT: 03/20/241919 ? Wireline Supervisor: ? Procedure Note Otoniel, Vinicius - 03/20/2024 [facility] [address] [facility] [address] CT Scan Report Signed Patient: Avinash Nuvia Ho EMR #: [id number] : 1Acct:[id number] Age/Sex: 63 / FADM Date: 03/20/24 Loc: HO.ED Attending Dr: Ordering Physician: Maritza Mckeon Date of Service: 03/20/24 Procedure(s): CT abdomen pelvis w IV con Accession Number(s): [id number] cc: Maritza Mckeon; ANTHONY RUIZ NP Report Number: [id number]: Total DLP = 844.00 mGy-cm CLINICAL HISTORY: abdominal wall cellulitis abscess CT abdomen and pelvis with contrast Comparison: CT/OK/SR - CT ABDOMEN WO/W IV CON - [...] in OV> 03/20/241921 DD/ 19 TD/TT: 03/20/241919 Wireline Supervisor: [facility] External Provider IMG CT PROCEDURES Edited Result - Final * (ABNORMAL) Glucose, Whole Blood (03/20/2024 5:01 PM EST) Only the most recent of2 resultswithin the time period is included. Glucose, Whole Blood 163(H) 60 - 115 mg/dL [facility] Comment:METER #: [id number] 03/20/2024 5:01 PM EST 03/20/2024 5:05 PM EST us Generic External Data Provider LAB BLOOD ORDERAB LES Final Result [facility] [address] [place] [phone] * (ABNORMAL) CBC auto differential (03/20/2024 2:28 PM EST) Pathologist [facility] White Blood Count 6.8 4.8 - 10.8 X10*3/uL [facility] Red Blood Count 4.08(L) 4.20 - 5.50 X10*6/uL [facility] Hemoglobin 13.0 12.0 - 16.0 g/dl [facility] Hematocrit 38.0 37.0 - 47.0 % [facility] Mean Corpuscular Volume 93.1 80.0 - 98.0 fL [facility] Mean Corpuscular Hemoglobin 31.9 27.0 - 33.0 pg [facility] Mean Corpuscular HGB Conc 34.2 31.0 - 35.0 g/dl [facility] Red Cell Distribution Width 14.1 11.0 - 16.0 % [facility] Platelet Count 280 160 - 400 X10*3/uL [facility] Mean Platelet Volume 9.2(L) 9.4 - 12.3 fL [facility] Neutrophils Percent Auto 53.1 45 - 73 % [facility] Imm Gran Pct Auto 0.1 0.0 - 0.4 % [facility] Lymphocytes Percent Auto 36.2 20 - 40 % [facility] Monocytes Percent Auto 7.9 2 - 11 % [facility] Eosinophils Percent Auto 2.4 0 - 4 % [facility] Basophils Percent Auto 0.3 0 - 2 % [facility] NRBC Pct Auto 0.0 0.0 - 0.2 /100WBC [facility] Neutrophils Absolute Auto 3.6 2.0 - 8.3 x10*3/uL [facility] Imm Gran Abs Auto 0.01 0.00 - 0.03 X10*3/uL [facility] Lymphocytes Absolute Auto 2.5 1.2 - 4.9 X10*3/uL [facility] Monocytes Absolute Auto 0.5 0.1 - 1.2 X10*3/uL [facility] Eosinophils Absolute Auto 0.2 0.0 - 0.4 X10*3/uL [facility] Basophils Absolute Auto 0.0 0.0 - 0.2 X10*3/uL [facility] NRBC Abs Auto 0.000 0.0 - 0.012 X10*3/uL [facility] 03/20/2024 2:28 PM EST 03/20/2024 2:33 PM EST us Generic External Data Provider LAB BLOOD ORDERAB LES Final Result Performing Organization Address [facility] Co de Phone Number [facility] [address] [place] [phone] * (ABNORMAL) Sed Rate by Modified Earlineren (03/20/2024 2:28 PM EST) Erythrocyte Sedimentation Rate 46(H) 0 - 20 MM/HR [facility] Comment:Patients with polycy themia and many hemoglobin abnormalitiesmay have depressed sed rates whereas patients with anemiamay have elevated sed rates. 03/20/2024 2:28 PM EST 03/20/2024 2:58 PM EST us Generic External Data Provider LAB BLOOD ORDERAB LES Final Result [facility] [address] [place] [phone] * (ABNORMAL) C-reactive Protein (03/20/2024 2:28 PM EST) Pathologist [facility] C Reactive Protein 3.90(H) < or = 0.50 mg/dL [facility] 03/20/2024 2:28 PM EST 03/20/2024 2:33 PM EST Generic External Data Provider LAB BLOOD ORDERAB LES Final Result Performing Organization Address [facility]/ZIP Co de Phone Number [facility] [address] [place] [phone] * Magnesium (03/20/2024 2:28 PM EST) Pathologist [facility] Magnesium 2.2 1.6 - 2.6 mg/dL [facility] 03/20/2024 2:28 PM EST 03/20/2024 2:33 PM EST Generic External Data Provider LAB BLOOD ORDERAB LES Final Result Performing Organization Address [facility] Co de Phone Number [facility] [address] [place] [phone] * Lipase (03/20/2024 2:28 PM EST) Pathologist [facility] Lipase 16 8 - 78 U/L [facility] 03/20/2024 2:28 PM EST 03/20/2024 2:33 PM EST Generic External Data Provider LAB BLOOD ORDERAB LES Final Result Performing Organization Address [facility] Co de Phone Number [facility] [address] [place] [address] [phone] * Lactic Acid (03/20/2024 2:28 PM EST) [facility] Lactic Acid 0.8 0.5 - 2.0 mmol/L [facility] 03/20/2024 2:28 PM EST 03/20/2024 2:33 PM EST Generic External Data Provider LAB BLOOD ORDERAB LES Final Result Performing Organization Address [facility] Phone Number [facility] [address] [place] [address] [phone] * (ABNORMAL) Hepatic Function Panel (03/20/2024 2:28 PM EST) Bilirubin, Total 0.4 0.0 - 1.0 mg/dL [facility] Bilirubin, Direct 0.2 0.0 - 0.5 mg/dL [facility] Aspartate Amino Transferase 173(H) 5 - 31 U/L [facility] Alanine Aminotransferase 249(H) 0 - 31 U/L [facility] Total Protein 7.8 6.5 - 8.0 g/dL [facility] Albumin Level 3.8 3.5 - 5.0 g/dL [facility] Alkaline Phosphatase 138(H) 39 - 117 U/L [facility] 03/20/2024 2:28 PM EST 03/20/2024 2:33 PM EST Generic External Data Provider LAB BLOOD ORDERAB LES Final Result Performing Organization Address [facility] Phone Number [facility] [address] [place] [address] [phone] * (ABNORMAL) Basic Metabolic Panel (03/20/2024 2:28 PM EST) Sodium 143 135 - 145 mmol/L [facility] Potassium 3.7 3.3 - 5.1 mmol/L [facility] Chloride 112(H) 96 - 108 mmol/L [facility] Carbon Dioxide 23 22 - 29 mmol/L [facility] Anion Gap 12 12 - 20 [facility] Urea Nitrogen (BUN) 13 9 - 16 mg/dL [facility] Creatinine, Serum 0.82 0.5 - 1.4 mg/dL [facility] Creatinine Clr Calc Pharmacy 73.7 [facility] Comment:Provided height and weight: 157.48 cm,91.172 kg.eGFR (calculated from the MDRD study equation) and eCrCl(calculated from the Cockcroft-Gault equation) are based ondifferent parameters and may not yield comparable results.If eCrCl result is absurd, please check patient'sheight/weight. Estimated Glomerular Filt Rate >60 [facility] Comment:Chronic Kidney Disea se: Estimated GFR < 60 mL/min/1.35o6Adrugd Kidney Disease: Estimated GFR < 15 mL/min/1.73m2 Glucose 112 60 - 115 mg/dL [facility] Calcium 8.7 8.4 - 10.2 mg/dL [facility] 03/20/2024 2:28 PM EST 03/20/2024 2:33 PM EST us Generic External Data Provider LAB BLOOD ORDERAB LES Final Result [facility] [address] [place] [address] [phone] * XR Chest 1 View (02/29/2024 1:36 PM EST) Anatomical Region Laterality Modality Chest Radiographic Griselda ging 02/29/2024 1:36 PM EST Narrative 02/29/2024 1:38 PM EST ? [facility] ?[address] ?[place] [address] ?XRay Report ? Signed ? Patient: Nuvia Fay ?MR ?? #: [id number] ? : 1960 ?Acct:[id number] ? Age/Sex: 63 / F ?ADM Date: 01/12/25 ? Loc: HO.ED ? Attending Dr: ? Ordering Physician: Kourtney Jones MD ?? Date of Service: 02/29/24 ?? Procedure(s): XR chest 1V ?? Accession Number(s): [id number] ? cc: Kourtney Jones MD; ANTHONY RUIZ [...] ?? on 02/29/2024 13:36:48 ? Dictated By: ?iLgia Myrick MD ? Signed By: ?<Electronically signed by Ligia Myrick MD in OV> ? 02/29/24 1337 ? DD/ 1336 ? TD/TT: 02/29/24 1336 ? Wireline Supervisor: ? Procedure Note Donconnerter, Image - 02/29/2024 [place] [address] XRay Report Signed Patient: Nuvia Fay EMR #: [id number] : 1960cct:[id number] Age/Sex: 63 / FADM Date: 02/29/24 Loc: HO.ED Attending Dr: Ordering Physician: Kourtney Jones MD Date of Service: 02/29/24 Procedure(s): XR chest 1V Accession Number(s): [id number] cc: Kourtney Jones MD; ANTHONY RUIZ NP [...] in OV> 02/29/24 1337 DD/ 1336 TD/TT: 02/29/246 Wireline Supervisor: [facility] External Provider IMG XR PROCEDURES Edited Result - Final * Albumin, Random Urine W/Creatinine (01/02/2024 8:44 AM EST) Creatinine, Urine 47.20 mg/dL [facility] Microalbumin Urine 7.0 mg/L [facility] Microalbum Creatinine Ratio Ur 14.8 <30 ug/mg cr [facility] Comment:Albumin/Creatinine R atio Reference Ranges: Normal: < 30 ug/mg creatinine Microalbuminuria: 30 - 300 ug/mg creatinineClinical Albuminuria: > 300 ug/mg creatinine Urine (Urine, Random) 01/02/2024 8:44 AM EST 01/02/2024 11:09 AM EST Anthony [facility] LAB URINE ORDERABLES Final Resul t Performing Organization Address [facility]/ZIP Co de Phone Number [facility] [address] [place] [phone] * (ABNORMAL) Hemoglobin A1c (01/02/2024 8:44 AM EST) Hemoglobin A1c 6.6(H) <6.0 % [facility] Comment:Hemoglobin A1C Refer ence Range Adults: 4.8 - 6.0 % Non diabetic: < 6.0 % Goal: < 7.0 %Additional Action Suggested: > 8.0 %Note: Hemoglobin A1c results are invalid for patients with abnormal amounts of HbF. Blood transfusions may impact the HbA1c concentration in the patient sample. Estimated Average Glucose 143 mg/dL [facility] Comment:eAG = Estimated ave rage glucose which is %A1C expressed asaverage glucose, using the formula of the M6R-UqizgfoPnyskoq Glucose study (ADAG), Diabetes Care, Vol.31,#8,Sep. 2007 01/02/2024 8:44 AM EST 01/02/2024 11:03 AM EST us Generic External Data Provider LAB BLOOD ORDERAB LES Final Result Performing Organization Address [facility]/ZIP Co de Phone Number [facility] [address] [place] [address] [phone] * Lipid Panel, Standard (01/02/2024 8:44 AM EST) Triglycerides 93 <150 mg/dL [facility] Comment:Desirable Triglyceri de: less than 150 mg/dLBorderline High Triglyceride 150-199 mg/dLHigh Triglyceride: 200-499 mg/dLVery High Triglyceride: greater than or equal to 5OO mg/dL Cholesterol 177 <200 mg/dL [facility] Comment:Desirable Cholestero l: less than 200 mg/dLBorderline High Cholesterol: 200-239 mg/dLHigh Cholesterol: greater than 239 mg/dL LDL Cholesterol Calculated 90 <100 mg/dL [facility] Comment:Desirable LDL: less than 100 mg/dLNear Optimal/Above Optimal LDL: 110- 129 mg/dLBorderline High LDL: 130-159 mg/dLHigh LDL: 160-189 mg/dLVery High LDL: greater than or equal to 190 mg/dL HDL Cholesterol 69 >40 mg/dL [facility] Comment:Desirable HDL: great er than 40 mg/dL Note: This HDL assay may give artificially low results in patients with liver disease. 01/02/2024 8:44 AM EST 01/02/2024 11:03 AM EST us Generic External Data Provider LAB BLOOD ORDERAB LES Final Result [facility] [address] [place] [address] [phone] * (ABNORMAL) Hm Colonoscopy (12/27/2021) Colonoscopy Abnormal(A ) Normal us Historical Provider HEALTH MAINTENANCE Final Result * HPV E6/E7 RFLX ALFRED 16 18/45 (05/09/2020 11:19 AM EDT) HPV mRNA E6/E7 rflx Not Detected Not Detected [facility] Comment: Methodology: Geotechnical Operating Engineer-Mediated Amplification This assay detects E6/E7 viral messenger RNA (mRNA) from 14 high-risk HPV types (16,18,31,33,35,39,45,51,52,56,58,59,66,68). The analytical performance characteristics of this assay have been determined by [employer]. The modifications have not been cleared or approved by the FDA. This assay has been validated pursuant to the CLIA regulations and is used for clinical purposes. For additional information, please refer to http://education.Jobzippers/faq/XLA206v1 (This link if provided for information/ educational purposes only.) THIS TEST WAS PERFORMED AT: [employer] [address] [place] [address] [address] [place], [place] ??[phone] HERNAN WARREN MD 05/09/2020 11:1 9 AM EDT Yohana Lu HISTORICAL/NON ORDERABLE LABS Fi nal Result [facility] Anywhere [address] from Last 3 Months or Most Recently Relevant to Health Maintenance Insurance [facility] Care Teams Mobile Practice Lead Relationship Specialty Start Date End Date Anthony Ruiz ANP [address] [place] [address] PCP - General Family Medicine 09/23/19 Yuri Pierre, MikeD [address] [place] [address] Pharmacist Internal Medicine 05/05/24 Basilio Hall MD [address] [place] [address] Cardiology 05/17/24 Ron Preciado MD [address] [place] [address] Pulmonary Disease 05/17/24
--- OUTSIDE RECORDS SUMMARY | 2024-05-26 14:52 | XMS_ITS | Encounter Summary ---
Author Organization [facility] Address [address] [facility] 7t [place] [address] Care Team Providers Care Upholstery Bundler Name Role Phone Sariah Vickers Primary Care Provider [phone] Yuri Pierre PharmD Unavailable [phone] Basilio Hall MD Unavailable [phone] Ron Preciado MD Unavailable [phone] Reason for Visit * Reason Comments Med Refill Encounter Details Date Type Department Care Team (Late st Contact Info) Description 07/12/2022 Refill [facility] [address] [place] [address] Sariah Vickers ANP [address] [place] [address] Social History Tobacco Use Types Packs/Day Years [...] 07/02/2024 11:00 AM EDT Clinical Support [address] [address] Azeb Hall, RN [address] [place] [address] 07/15/2024 1:00 PM EDT Office Visit [address] [address] Sariah Vickers ANP [address] [place] [address] 08/04/2024 10:00 AM EDT Medication Management [address] [address] Yuri Pierre, Dileep [address] [place] [address] 08/04/2024 1:00 PM EDT Office Visit [facility] [address] [place] [address] Brendan Duartearis [address] [place] [address] documented as of this encounter Visit Diagnoses Not on filedocumented in this encounter Care Teams Upholstery Bundler Relationship Specialty Start Date End Date Sariah Vickers ANP [address] [place] [address] PCP - General Family Medicine 09/23/19 Yuri Pierre, PharmD [address] [place] [address] Pharmacist Internal Medicine 05/05/24 Basilio Hall MD [address] [place] [address] Cardiology 05/17/24 Ron Preciado MD [address] [place] [address] Pulmonary Disease 05/17/24 documented as of this encounter
--- OUTSIDE RECORDS SUMMARY | 2024-05-26 14:52 | XMS_ITS | Encounter Summary ---
Author Organization [facility] Address [address] [facility] 7t [place] [address] Care Team Providers Care Staff Weapons Officer Name Role Phone Sariah Vickers Primary Care Provider Yuri Pierre PharmD Unavailable [phone] Basilio Hall MD Unavailable [phone] Ron Preciado MD Unavailable [phone] Reason for Visit * Reason Comments Med Refill Encounter Details Date Type Department Care Team (Late st Contact Info) Description 05/09/2023 Refill [facility] [address] [place] [address] Sariah Vickers ANP [address] [place] [address] High cholesterol Social History Tobacco Use Types [...] Description 07/02/2024 11:00 AM EDT Clinical Support [facility] [address] [place] [address] Azeb Hall, MARITN [address] [place] [address] 07/15/2024 1:00 PM EDT Office Visit [facility] [address] [place] [address] Sariah Vickers, ANP [address] [place] [address] 08/04/2024 10:00 AM EDT Medication Management [facility] [address] [place] [address] Yuri Pierre, PharmD [address] [place] [address] 08/04/2024 1:00 PM EDT Office Visit [facility]ULT [facility] [address] [place] [address] Nuvia Duarte [address] [place] [address] documented as of this encounter Goals Goal [...] hypercholesterolemia documented in this encounter Care Teams Staff Weapons Officer Relationship Specialty Start Date End Date Sariah Vickers ANP [address] [place] [address] PCP - General Family Medicine 09/23/19 Yuri Pierre, MikeD [address] [place] [address] Pharmacist Internal Medicine 05/05/24 Basilio Hall MD [address] [place] [address] Cardiology 05/17/24 Ron Preciado MD [address] [place] [address] Pulmonary Disease 05/17/24 documented as of this encounter
--- OUTSIDE RECORDS SUMMARY | 2024-05-26 14:52 | XMS_ITS | Encounter Summary ---
Author Organization [employer] Address [address] [facility] 7t [place] [address] Care Team Providers Care Grease Remover Name Role Phone Sariah Vickers Primary Care Provider [phone] Yuri Pierre PharmD Unavailable [phone] Basilio Hall MD Unavailable [phone] Ron Preciado MD Unavailable [phone] Reason for Visit * Reason Comments Med Refill Encounter Details Date Type Department Care Team (Late st Contact Info) Description 12/27/2022 Refill [facility]INE [address] [place] [address] Sariah Vickers ANP [address] [place] [address] Neck pain Social History Tobacco Use Types [...] Support [facility] [address] [place] [address] Azeb Hall, MARTIN [address] [place] [address] 07/15/2024 1:00 PM EDT Office Visit [facility] [address] [place] [address] Sariah Vickers, ANP [address] [place] [address] 08/04/2024 10:00 AM EDT Medication Management [facility] [address] [place] [address] Yuri Pierre, PharmD [address] [place] [address] 08/04/2024 1:00 PM EDT Office Visit [facility] [address] [place] [address] Nuvia Duarte [address] [place] [address] documented as of this encounter Goals Goal [...] Cervicalgia documented in this encounter Care Teams Grease Remover Relationship Specialty Start Date End Date Sariah Vickres ANP [address] [place] [address] PCP - General Family Medicine 09/23/19 Yuri Pierre, MikeD [address] [place] [address] Pharmacist Internal Medicine 05/05/24 Basilio Hall MD [address] [place] [address] Cardiology 05/17/24 Ron Preciado MD [address] [place] [address] Pulmonary Disease 05/17/24 documented as of this encounter
--- OUTSIDE RECORDS SUMMARY | 2024-05-26 14:52 | XMS_ITS | Encounter Summary ---
Author Organization [facility] Address [address] [facility] 7t [place] [address] Care Team Providers Care Letterer Name Role Phone Sariah Vickers Primary Care Provider [phone] Yuri Pierre PharmD Unavailable [phone] Basilio Hall MD Unavailable [phone] Ron Preciado MD Unavailable [phone] Reason for Visit * Reason Onset Date Comments Nurse Triage 12/24/2022 Encounter Details Date Type Department Care Team (Late st Contact Info) Description 12/24/[address] 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 Pt. States that she wants to [...] regimen and possible referral to a new Pin Chaser due to pt. Not having jeremie in [...] accepted this outcome Please contact pt at [phone] documented in this encounter Plan of Treatment Upcoming Encounters Date Type Department Care Team (Late st Contact Info) Description 07/02/2024 11:00 AM EDT Clinical Support [facility] MED[facility]INE [address] [place] [address] Azeb Hall, RN [address] [place] [address] 07/15/2024 1:00 PM EDT Office Visit [address] [address] Sariah Vickers ANP [address] [place] [address] 08/04/2024 10:00 AM EDT Medication Management [address] [address] Yuri Pierre PharmD [address] [place] [address] 08/04/2024 1:00 PM EDT Office Visit [facility]ULT D[facility]AL [address] [place] [address] Nuvia Duarte [address] [place] [address] documented as of this encounter Goals Goal [...] on filedocumented in this encounter Care Teams Letterer Relationship Specialty Start Date End Date Sariah Vickers ANP [address] [place] [address] PCP - General Family Medicine 09/23/19 Yuri Pierre PharmD [address] [place] [address] Pharmacist Internal Medicine 05/05/24 Basilio Hall MD [address] [place] [address] Cardiology 05/17/24 Ron Preciado MD [address] [place] [address] Pulmonary Disease 05/17/24 documented as of this encounter
--- OUTSIDE RECORDS SUMMARY | 2024-05-26 14:52 | XMS_ITS | Encounter Summary ---
Author Organization [employer] [facility] Address [address] [facility] 7t [place] [address] Care Team Providers Care Auxiliary Powerplant Operator Name Role Phone Sariah Vickers Primary Care Provider [phone] Yuri Pierre PharmD Unavailable [phone] Basilio Hall MD Unavailable [phone] Ron Preciado MD Unavailable [phone] Reason for Visit * Reason Onset Date Comments Med Refill 01/09/2024 Encounter Details Date Type Department Care Team (Late st Contact Info) Description 01/09/2024 Telephone [facility] MEDICINE [address] [place] [address] Sariah Vickers ANP [address] [place], [place] [phone] Med Refill Social History Tobacco Use Types [...] 11:00 AM EDT Clinical Support [facility]INE [address] [place] [address] Azeb Hall RN [address] [place] [address] 07/15/2024 1:00 PM EDT Office Visit [facility] MEDICINE [address] [place] [address] Sariah Vickers, ANP [address] [place] [address] 08/04/2024 10:00 AM EDT Medication Management [facility] [address] [place] [address] Yuri Pierre, PharmD [address] [place] [address] 08/04/2024 1:00 PM EDT Office Visit [facility] ADULT DENTAL [address] [place] [address] Nuvia Duarte [address] [place] [address] documented as of this encounter Goals Goal [...] documented as of this encounter Care Teams Auxiliary Powerplant Operator Relationship Specialty Start Date End Date Sariah Vickers ANP [address] [place] [address] PCP - General Family Medicine 09/23/19 Yuri Pierre PharmD [address] [place] [address] Pharmacist Internal Medicine 05/05/24 Basilio Hall MD [address] [place] [address] Cardiology 05/17/24 Ron Preciado MD [address] [place] [address] Pulmonary Disease 05/17/24 documented as of this encounter
--- OUTSIDE RECORDS SUMMARY | 2024-05-26 14:52 | XMS_ITS | Encounter Summary ---
Author Organization [facility] [facility] Address [address] [facility] 7t [place] [address] Care Team Providers Care Farmworker Fryer Farm Name Role Phone Sariah Vickers Primary Care Provider Yuri Pierre PharmD Unavailable [phone] Basilio Hall MD Unavailable [phone] Ron Preciado MD Unavailable [phone] Reason for Visit * Reason Comments Med Refill Encounter Details Date Type Department Care Team (Late st Contact Info) Description 03/07/2023 Refill [facility] [address] [place] [address] Sariah Vickers ANP [address] [place] [address] Vertigo Social History Tobacco Use Types Packs/Day [...] 07/02/2024 11:00 AM EDT Clinical Support [facility] [address] [place] [address] Azeb Hall, MARTIN [address] [place] [address] 07/15/2024 1:00 PM EDT Office Visit [facility] [address] [place] [address] Sariah Vickers, ANP [address] [place] [address] 08/04/2024 10:00 AM EDT Medication Management [facility] [address] [place] [address] Yuri Pierre, PharmD [address] [place] [address] 08/04/2024 1:00 PM EDT Office Visit [facility]ULT D[facility] [address] [place] [address] Nuvia Duarte [address] [place] [address] documented as of this encounter Goals Goal [...] giddiness documented in this encounter Care Teams Farmworker Fryer Farm Relationship Specialty Start Date End Date Sariah Vickers ANP [address] [place] [address] PCP - General Family Medicine 09/23/19 Yuri Pierre, MikeD [address] [place] [address] Pharmacist Internal Medicine 05/05/24 Basilio Hall MD [address] [place] [address] Cardiology 05/17/24 Ron Preciado MD [address] [place] [address] Pulmonary Disease 05/17/24 documented as of this encounter
--- OUTSIDE RECORDS SUMMARY | 2024-05-26 14:52 | XMS_ITS | Encounter Summary ---
Author Organization [employer] Address [address] [facility] 7t [place] [address] Care Team Providers Care Information Systems Security Manager Name Role Phone Sariah Vickers KAYLEE Primary Care Provider [phone] Yuri Pierre PharmD Unavailable [phone] Basilio Hall MD Unavailable [phone] Ron Preciado MD Unavailable [phone] Reason for Visit * Reason Comments Med Refill Encounter Details Date Type Department Care Team (Late st Contact Info) Description 03/04/2023 Refill [facility] 230 [place] [address] Brittney Nava MD [address] [place], [place] [phone] Social History Tobacco Use Types Packs/Day Years [...] 11:00 AM EDT Clinical Support [facility] [address] [place] [address] Azeb Hall, RN [address] [place] [address] 07/15/2024 1:00 PM EDT Office Visit [facility] [address] [place] [address] Sariah Vickers, ANP [address] [place] [address] 08/04/2024 10:00 AM EDT Medication Management [facility] [address] [place] [address] Yuri Pierre, PharmD [address] [place] [address] 08/04/2024 1:00 PM EDT Office Visit [facility] [address] [place] [address] Nuvia Duarte [address] [place] [address] documented as of this encounter [...] on filedocumented in this encounter Care Teams Information Systems Security Manager Relationship Specialty Start Date End Date Sariah Vickers ANP [address] [place] [address] PCP - General Family Medicine 09/23/19 Yuri Pierre, MikeD [address] [place] [address] Pharmacist Internal Medicine 05/05/24 Basilio Hall MD [address] [place] [address] Cardiology 05/17/24 Ron Preciado MD [address] [place] [address] Pulmonary Disease 05/17/24 documented as of this encounter
--- OUTSIDE RECORDS SUMMARY | 2024-05-26 14:52 | XMS_ITS | Encounter Summary ---
Author Organization [facility] Address [address] [facility] 7t [place] [address] Care Team Providers Care Transcriber Name Role Phone Sariah Vickers Primary Care Provider [phone] Yuri Pierre PharmD Unavailable [phone] Basilio Hall MD Unavailable [phone] Ron Preciado MD Unavailable [phone] Reason for Visit * Reason Onset Date Comments Nurse Triage 01/14/2023 Encounter Details Date Type Department Care Team (Late st Contact Info) Description 01/14/[address] 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 Pt. States that she has been having a fire feeling in her legs. Its like A burning that goes down her legs . Pt. Unsure if it because of her Diabetes. Pt. Went to [facility] for pain on her left side [...] at 10am. Will send note to clinical health care facilities inspector to have note put in chart . [...] Severe pain now, pt was seen at [facility] on 01/13 for pain in leg. Pt is still symptomatic The caller accepted this outcome Please contact pt at [phone] (job putter up and ticket preparer needed) documented in this encounter Plan of Treatment Upcoming Encounters Date Type Department Care Team (Late st Contact Info) Description 07/02/2024 11:00 AM EDT Clinical Support [address] [address] Azeb Hall RN [address] [place] [address] 07/15/2024 1:00 PM EDT Office Visit [facility] [address] [place] [address] Sariah Vickers, ANP [address] [place] [address] 08/04/2024 10:00 AM EDT Medication Management [address] [address] Yuri Pierre, MikeD [address] [place] [address] 08/04/2024 1:00 PM EDT Office Visit [facility]AL [address] [place] [address] Nuvia Duarte [address] [place] [address] documented as of this encounter Goals Goal [...] on filedocumented in this encounter Care Teams Transcriber Relationship Specialty Start Date End Date Sariah Vickers ANP [address] [place] [address] PCP - General Family Medicine 09/23/19 Yuri Pierre, MikeD [address] [place] [address] Pharmacist Internal Medicine 05/05/24 Basilio Hall MD [address] [place], [place] [phone] Cardiology 05/17/24 Ron Preciado MD [address] [place] [address] Pulmonary Disease 05/17/24 documented as of this encounter
--- OUTSIDE RECORDS SUMMARY | 2024-05-26 14:53 | XMS_ITS | Encounter Summary ---
Author Organization [employer] Address [address] [facility] 7t [place] [address] Care Team Providers Care Computer Repairer Name Role Phone Sariah Vickers Primary Care Provider [phone] Yuri Pierre PharmD Unavailable [phone] Basilio Hall MD Unavailable [phone] Ron Preciado MD Unavailable [phone] Reason for Visit * Reason Comments Med Refill Encounter Details Date Type Department Care Team (Late st Contact Info) Description 07/10/2023 Refill [facility] [address] [place], [place] [phone] Sariah Vickers ANP [address] [place], [place] [phone] Chronic SI joint pain Social History Tobacco [...] Description 07/02/2024 11:00 AM EDT Clinical Support [facility] [address] [place] [address] Azeb Hall, MARTIN [address] [place] [address] 07/15/2024 1:00 PM EDT Office Visit [facility] [address] [place] [address] Sariah Vickers, ANP [address] [place] [address] 08/04/2024 10:00 AM EDT Medication Management [facility] [address] [place] [address] Yuri Pierre, PharmD [address] [place] [address] 08/04/2024 1:00 PM EDT Office Visit [facility] [address] [place] [address] Nuvia Duarte [address] [place] [address] documented as of this encounter Goals Goal [...] as of this encounter Care Teams Computer Repairer Relationship Specialty Start Date End Date Sariah Vickers ANP [address] [place] [address] PCP - General Family Medicine 09/23/19 Yuri Pierre PharmD [address] [place] [address] Pharmacist Internal Medicine 05/05/24 Basilio Hall MD [address] [place] [address] Cardiology 05/17/24 Ron Preciado MD [address] [place] [address] Pulmonary Disease 05/17/24 documented as of this encounter
--- OUTSIDE RECORDS SUMMARY | 2024-05-26 14:53 | XMS_ITS | Encounter Summary ---
Author Organization [facility] Address [address] [facility] 7t [place] [address] Care Team Providers Care Clinical Geneticist Name Role Phone Sariah Vickers Primary Care Provider [phone] Yuri Pierre PharmD Unavailable [phone] Basilio Hall MD Unavailable [phone] Ron Preciado MD Unavailable [phone] Reason for Visit * Reason Comments Med Refill Encounter Details Date Type Department Care Team (Late st Contact Info) Description 06/30/2023 Refill [facility] [address] [place] [address] Sariah Vickers ANP [address] [place] [address] Neck pain Social History Tobacco Use Types [...] 07/02/2024 11:00 AM EDT Clinical Support [facility] [address] [place] [address] Azeb Hall, RN [address] [place] [address] 07/15/2024 1:00 PM EDT Office Visit [facility] [address] [place] [address] Sariah Vickers, KAYLEE [address] [place] [address] 08/04/2024 10:00 AM EDT Medication Management [facility] [address] [place] [address] Yuri Pierre, PharmD [address] [place] [address] 08/04/2024 1:00 PM EDT Office Visit [facility] [address] [place] [address] Nuvia Duarte [address] [place] [address] documented as of this encounter Goals Goal [...] as of this encounter Care Teams Clinical Geneticist Relationship Specialty Start Date End Date Sariah Vickers ANP [address] [place] [address] PCP - General Family Medicine 09/23/19 Yuri Pierre PharmD [address] [place] [address] Pharmacist Internal Medicine 05/05/24 Basilio Hall MD [address] [place] [address] Cardiology 05/17/24 Ron Preciado MD [address] [place] [address] Pulmonary Disease 05/17/24 documented as of this encounter
--- OUTSIDE RECORDS SUMMARY | 2024-05-26 14:53 | XMS_ITS | Encounter Summary ---
Author Organization [facility] Address [address] [facility] 7t [place] [address] Care Team Providers Care Assistant Chief Nursing Officer Name Role Phone Sariah Vickers Primary Care Provider [phone] Yuri Pierre PharmD Unavailable [phone] Basilio Hall MD Unavailable [phone] Ron Preciado MD Unavailable [phone] Reason for Visit * Reason Onset Date Comments Med Refill Durable Medical Equipment 07/15/2023 Foam M attress/Raised Toilet Seat Encounter Details Date Type Department Care Team (Late st Contact Info) Description 07/15/2023 Refill [facility] [address] [place], [place] [phone] Sariah Vickers ANP [address] [place], [place] [phone] Neck pain Social History Tobacco Use Types [...] see request sent via email by [facility] Sash Finisher Arlin Baker. Please Advise. Good morning, Our [...] Upcoming Encounters Date Type Department Care Team ([facility] st Contact Info) Description 07/02/2024 11:00 AM EDT Clinical Support [address] [address] Azeb Hall, RN [address] [place] [address] 07/15/2024 1:00 PM EDT Office Visit [facility] [address] [place] [address] Sariah Vickers ANP [address] [place] [address] 08/04/2024 10:00 AM EDT Medication Management [facility] [address] [place] [address] Yuri Pierre PharmD [address] [place] [address] 08/04/2024 1:00 PM EDT Office Visit [facility] [address] [place] [address] Nuvia Duarte [address] [place] [address] documented as of this encounter Goals Goal [...] as of this encounter Care Teams Assistant Chief Nursing Officer Relationship Specialty Start Date End Date Sariah iVckers ANP [address] [place] [address] PCP - General Family Medicine 09/23/19 Yuri Pierre PharmD [address] [place] [address] Pharmacist Internal Medicine 05/05/24 Basilio Hall MD [address] [place] [address] Cardiology 05/17/24 Ron Preciado MD [address] [place] [address] Pulmonary Disease 05/17/24 documented as of this encounter
== END 2024-05-26 12:52 | disposition home or self-care (01) ==
LOC: HO.US 12:51
PROVIDERS: PCP Nurse Practitioner Primary Care; Visit Provider Urology
DX: N20.0 Calculus of kidney (principal)
CPT/HCPCS: 76775

== ENCOUNTER → 2024-05-26 12:53 | Outpatient (BNV) | payer OTHER, SELFPAY | PROVIDERS: PCP Nurse Practitioner Primary Care; Visit Provider Radiology Diagnostic Radiology | DX: N20.0 Calculus of kidney (principal) | CPT/HCPCS: 76775 ==

== ENCOUNTER 2024-05-27 07:53 | Day surgery (SDC) | payer OTHER, SELFPAY ==
--- OUTSIDE RECORDS SUMMARY | 2024-04-30 15:27 | XMS_ITS | Encounter Summary ---
Author Organization [employer] Address 75 [facility] 7t [place] [address] Care Team Providers Care Firestop/Containment Worker Name Role Phone Sariah Vickers Primary Care Provider [phone] Reason for Visit * Reason Onset Date Comments Med Refill 02/04/2024 Encounter Details Date Type Department Care Team ([facility] st Contact Info) Description 02/04/2024 Telephone [facility] MEDICINE 230 [place] [address] Sariah Vickers ANP 230 [place] [address] Med Refill Social History Tobacco Use Types [...] 50 MG tablet To be sent to: [facility] - [place], [place] - [address] [place] [address] documented in this encounter Plan of Treatment Upcoming Encounters Date Type Department Care Team (Late st Contact Info) Description 07/02/2024 11:00 AM EDT Clinical Support [facility] MEDICINE [address] [place] [address] Azeb Hall RN 505 [place] [address] 07/15/2024 1:00 PM EDT Office Visit [facility] MEDICINE [address] [place] [address] Sariah Vickers ANP 230 [place] [address] 08/04/2024 1:00 PM EDT Office Visit [facility] ADULT DENTAL 230 [place] [address] Nuvia Duarte 230 [place] [address] documented as of this encounter Goals Goal Patient Goal Type Associated Problems Recent Progress Patient-Stated? Author Blood Pressure < 140/90 Blood Pressure 136/88(2024 11:28 AM EDT) No Phanis-Gambl Aida urbina, PharmD Record Your Blood Sugar As Directed General No Phanis-Gambl Aida urbina, PharmD Hemoglobin A1c < 7 Result Component 6.6( 4 8:44 AM EST) No Phanis-Gambl Aida urbina PharmD documented as of this encounter Visit Diagnoses Not on filedocumented in this encounter Additional Health Concerns Assessment Noted Time PHQ-9 Depression Total Score: 12 024 2:58 PM EDT documented as of this encounter Care Teams Firestop/Containment Worker Relationship Specialty Start Date End Date Sariah Vickers ANP [address] [place] [address] PCP - General Family Medicine 09/23/19 documented as of this encounter
--- OUTSIDE RECORDS SUMMARY | 2024-04-30 15:27 | XMS_ITS | Encounter Summary ---
Author Organization [employer] [facility] Address [address] [place] [address] 7t [place] [address] Care Team Providers Care Industrial Safety And Health Manager Name Role Phone Sariah Vickers Primary Care Provider [phone] Encounter Details Date Type Department Care Team (Latest Contact Info) Description 06/20/2021 Abstract [facility] CONVERSIONS Dental, Provider, DDS Social [...] Description 07/02/2024 11:00 AM EDT Clinical Support [facility] MEDICINE [address] [place] [address] Azeb Hall RN 505 [place] [address] 07/15/2024 1:00 PM EDT Office Visit [facility] MEDICINE 230 [place] [address] Sariah Vickers ANP 230 [place] [address] 08/04/2024 1:00 PM EDT Office Visit [facility] ADULT DENTAL 230 [place] [address] Nuvia Duarte 230 [place] [address] documented as of this encounter Visit Diagnoses Not on filedocumented in this encounter Care Teams Industrial Safety And Health Manager Relationship Specialty Start Date End Date Sariah Vickers ANP 230 [place] [address] PCP - General Family Medicine 09/23/19 documented as of this encounter
--- OUTSIDE RECORDS SUMMARY | 2024-04-30 15:27 | XMS_ITS | Encounter Summary ---
Author Organization [employer] [facility] Address [address] [place] [address] 7t [place] [address] Care Team Providers Care Education Liaison Name Role Phone Sariah Vickers Primary Care Provider [phone] Reason for Visit * Reason Onset Date Comments Nurse Triage 11/01/2022 Encounter Details Date Type Department Care Team (Late st Contact Info) Description 11/01/2022 Telephone [facility] MEDICINE 230 [place] [address] Sariah Vickers ANP 230 [place] [address] Nurse Triage Social History Tobacco Use Types [...] 11/01/2022 3:51 PM EDT Triage call with [employer] [place] [id number] Pt reports blood sugars have been high [...] Description 07/02/2024 11:00 AM EDT Clinical Support [facility] MEDICINE 230 [place] [address] Azeb Hall RN 505 [place] [address] 07/15/2024 1:00 PM EDT Office Visit [facility] MEDICINE [address] [place] [address] Sariah Vickers ANP 230 [place] [address] 08/04/2024 1:00 PM EDT Office Visit [facility] ADULT DENTAL 230 [place] [address] Nuvia Duarte 230 [place] [address] documented as of this encounter Goals Goal Patient Goal Type Associated Problems Recent Progress Patient-Stated? Author Blood Pressure < 140/90 Blood Pressure 136/88(2024 11:28 AM EDT) No Aida Ragland PharmD Record Your Blood Sugar As Directed General No Aida Ragland PharmD Hemoglobin A1c < 7 Result Component 6.6( 4 8:44 AM EST) No Aida Ragland PharmD documented as of this encounter Visit Diagnoses Not on filedocumented in this encounter Care Teams Education Liaison Relationship Specialty Start Date End Date Sariah Vickers ANP [address] [place] [address] PCP - General Family Medicine 09/23/19 documented as of this encounter
--- OUTSIDE RECORDS SUMMARY | 2024-04-30 15:27 | XMS_ITS | Encounter Summary ---
Author Organization [employer] Address 75 [facility] 7t [place] [address] Care Team Providers Care Driver/Sales Workers Name Role Phone Sariah Vickers Primary Care Provider [phone] Reason for Visit * Reason Comments Med Refill Encounter Details Date Type Department Care Team ([facility] st Contact Info) Description 03/09/2024 Refill [facility] MED & PEDS [address] [place] [address] Sariah Vickers ANP 230 [place] [address] Neck pain Social History Tobacco Use Types [...] Description 07/02/2024 11:00 AM EDT Clinical Support [facility] MEDICINE [address] [place] [address] Azeb Hall RN 505 [place] [address] 07/15/2024 1:00 PM EDT Office Visit [facility] MEDICINE [address] [place] [address] Sariah Vickers ANP 230 [place] [address] 08/04/2024 1:00 PM EDT Office Visit [facility] ADULT DENTAL [address] [place] [address] Nuvia Duarte 230 [place] [address] documented as of this encounter Goals Goal Patient Goal Type Associated Problems Recent Progress Patient-Stated? Author Blood Pressure < 140/90 Blood Pressure 136/88(2024 11:28 AM EDT) No Piers-Gambl e, Aida, PharmD Record Your [...] documented as of this encounter Care Teams Driver/Sales Workers Relationship Specialty Start Date End Date Sariah Vickers ANP 230 [place] [address] PCP - General Family Medicine 09/23/19 documented as of this encounter
--- OUTSIDE RECORDS SUMMARY | 2024-04-30 15:27 | XMS_ITS | Encounter Summary ---
Author Organization [employer] Address 75 [facility] 7t [place] [address] Care Team Providers Care Computer Hardware Developer Name Role Phone Sariah Vickers Primary Care Provider Reason for Visit * Reason Comments Med Refill Encounter Details Date Type Department Care Team ([facility] Contact Info) Description 09/13/2022 Refill [facility] CHC MED & PEDS [address] [place] [address] Sariah Vickers ANP 230 [place] [address] Severe persistent allergic asthma without complication Social [...] Upcoming Encounters Date Type Department Care Team ([facility] Contact Info) Description 07/02/2024 11:00 AM EDT Clinical Support [facility] MEDICINE [address] [place] [address] Azeb Hall, RN 505 [place] [address] 07/15/2024 1:00 PM EDT Office Visit [facility] MEDICINE [address] [place] [address] Sariah Vickers ANP [address] [place] [address] 08/04/2024 1:00 PM EDT Office Visit [facility] ADULT DENTAL [address] [place] [address] Nuvia Duarte [address] [place] [address] documented as of this encounter Visit Diagnoses Diagnosis Severe persistent allergic asthma without complication documented in this encounter Care Teams Computer Hardware Developer Relationship Specialty Start Date End Date Sariah Vickers ANP [address] [place] [address] PCP - General Family Medicine 09/23/19 documented as of this encounter
--- OUTSIDE RECORDS SUMMARY | 2024-04-30 15:27 | XMS_ITS | Encounter Summary ---
Author Organization [employer] [facility] Address [address] [place] [address] 7t [place] [address] Care Team Providers Care Medical Biller Name Role Phone Sariah Vickers Primary Care Provider [phone] Reason for Visit * Reason Comments Med Refill Encounter Details Date Type Department Care Team (Late Contact Info) Description 03/26/2022 Refill [facility] MEDICINE [address] [place] [address] Sariah Vickers ANP 230 [place] [address] Social History Tobacco Use Types Packs/Day Years [...] Department Care Team (Late Contact Info) Description 07/02/2024 11:00 AM EDT Clinical Support [facility] MEDICINE [address] [place] [address] Azeb Hall, RN 505 [place] [address] 07/15/2024 1:00 PM EDT Office Visit [facility] MEDICINE 230 [place] [address] Sariah Vickers ANP 230 [place] [address] 08/04/2024 1:00 PM EDT Office Visit [facility] ADULT DENTAL 230 [place], [place] [phone] Nuvia Duarte 230 [place] [address] documented as of this encounter Visit Diagnoses Not on filedocumented in this encounter Care Teams Medical Biller Relationship Specialty Start Date End Date Sariah Vickers ANP 230 [place] [address] PCP - General Family Medicine 09/23/19 documented as of this encounter
--- OUTSIDE RECORDS SUMMARY | 2024-04-30 15:27 | XMS_ITS | Encounter Summary ---
Author Organization [employer] Address 75 [facility] 7t [place] [address] Care Team Providers Care Animal Nurse Name Role Phone Sariah Vickers Primary Care Provider [phone] Reason for Visit * Reason Comments Med Refill Encounter Details Date Type Department Care Team ([facility] st Contact Info) Description 08/22/2023 Refill [facility] MEDICINE 230 [place] [address] Sariah Vickers ANP 230 [place] [address] Neck pain Social History Tobacco Use Types [...] 11:00 AM EDT Clinical Support [facility] MEDICINE [address] [place] [address] Azeb Hall RN 505 [place] [address] 07/15/2024 1:00 PM EDT Office Visit [facility] MEDICINE [address] [place] [address] Sariah Vickers ANP 230 [place] [address] 08/04/2024 1:00 PM EDT Office Visit [facility] ADULT DENTAL [address] [place] [address] Nuvia Duarte 230 [place] [address] documented as of this encounter Goals Goal [...] documented as of this encounter Care Teams Animal Nurse Relationship Specialty Start Date End Date Sariah Vickers ANP 230 [place] [address] PCP - General Family Medicine 09/23/19 documented as of this encounter
--- OUTSIDE RECORDS SUMMARY | 2024-04-30 15:27 | XMS_ITS | Encounter Summary ---
Author Organization [facility] [employer] [facility] Address [address] [place] [address] 7t [place] [address] Care Team Providers Care Fisheries Officer Name Role Phone Sariah Vickers Primary Care Provider Encounter Details Date Type Department Care Team (Late st Contact Info) Description 01/09/2022 Abstract [facility] ADULT DENTAL 230 [place] [address] Dental, Provider, DDS Social History Tobacco Use [...] Description 07/02/2024 11:00 AM EDT Clinical Support [facility] MEDICINE [address] [place] [address] Azeb Hall RN 505 [place] [address] 07/15/2024 1:00 PM EDT Office Visit [facility] MEDICINE [address] [place] [address] Sariah Vickers ANP 230 [place] [address] 08/04/2024 1:00 PM EDT Office Visit [facility] ADULT DENTAL 230 [place] [address] Nuvia Duarte 230 [place] [address] documented as of this encounter Procedures Procedure [...] on filedocumented in this encounter Care Teams Fisheries Officer Relationship Specialty Start Date End Date Sariah Vickers ANP [facility] [place] [address] PCP - General Family Medicine 09/23/19 documented as of this encounter
--- OUTSIDE RECORDS SUMMARY | 2024-04-30 15:27 | XMS_ITS | Encounter Summary ---
Author Organization [employer] [facility] Address 75 [facility] 7t [place] [address] Care Team Providers Care Poker Dealer Name Role Phone Sariah Vickers Primary Care Provider [phone] Encounter Details Date Type Department Care Team ([facility] Contact Info) Description 02/05/2022 Abstract [facility] MEDICINE [address] [place] [address] Sariah Vickers ANP 230 [place] [address] Social History Tobacco Use Types Packs/Day Years [...] Description 07/02/2024 11:00 AM EDT Clinical Support [facility] MEDICINE [address] [place] [address] Azeb Hall, RN 505 [place] [address] 07/15/2024 1:00 PM EDT Office Visit [facility] MEDICINE [address] [place] [address] Sariah Vickers ANP 230 [place] [address] 08/04/2024 1:00 PM EDT Office Visit [facility] ADULT DENTAL [address] [place] [address] Nuvia Duarte 230 [place] [address] documented as of this encounter Visit Diagnoses Not on filedocumented in this encounter Care Teams Poker Dealer Relationship Specialty Start Date End Date Sariah Vickers ANP [address] [place] [address] PCP - General Family Medicine 09/23/19 documented as of this encounter
--- OUTSIDE RECORDS SUMMARY | 2024-04-30 15:27 | XMS_ITS | Encounter Summary ---
Author Organization [employer] Address [address] [place] [address] 7t [place] [address] Care Team Providers Care Manager Knowledge Name Role Phone Sariah Vickers Primary Care Provider [phone] Reason for Visit * Reason Onset Date Comments Durable Medical Equipment 03/15/2022 Encounter Details Date Type Department Care Team (Late st Contact Info) Description 03/15/2022 Telephone [facility] MEDICINE 230 [place] [address] Sariah Vickers ANP 230 [place] [address] Durable Medical Equipment Social History Tobacco Use [...] Description 07/02/2024 11:00 AM EDT Clinical Support [facility] MEDICINE [address] [place] [address] Azeb Hall, RN 505 [place] [address] 07/15/2024 1:00 PM EDT Office Visit [facility] MEDICINE 230 [place] [address] Sariah Vickers ANP 230 [place] [address] 08/04/2024 1:00 PM EDT Office Visit [facility] ADULT DENTAL 230 [place] [address] Nuvia Duarte 230 [place] [address] documented as of this encounter Visit Diagnoses Not on filedocumented in this encounter Care Teams Manager Knowledge Relationship Specialty Start Date End Date Sariah Vickers ANP [address] [place] [address] PCP - General Family Medicine 09/23/19 documented as of this encounter
--- OUTSIDE RECORDS SUMMARY | 2024-04-30 15:27 | XMS_ITS | Encounter Summary ---
Author Organization [employer] [facility] Address [address] [place] [address] 7t [place] [address] Care Team Providers Care Green Prize Packer Name Role Phone Sariah Vickers Primary Care Provider [phone] Reason for Visit * Reason Comments Med Refill Encounter Details Date Type Department Care Team (Late st Contact Info) Description 03/03/2022 Refill [facility] MEDICINE 230 [place] [address] Sariah Vickers ANP [address] [place] [address] Social History Tobacco Use Types Packs/Day Years [...] Support [facility] MEDICINE [address] [place] [address] Azeb Hall, RN 505 [place] [address] 07/15/2024 1:00 PM EDT Office Visit [facility] MEDICINE [address] [place] [address] Sariah Vickers ANP [address] [place] [address] 08/04/2024 1:00 PM EDT Office Visit [facility] ADULT DENTAL [address] [place] [address] Nuvia Duarte 230 [place] [address] documented as of this encounter Visit Diagnoses Not on filedocumented in this encounter Care Teams Green Prize Packer Relationship Specialty Start Date End Date Sariah Vickers ANP [address] [place] [address] PCP - General Family Medicine 09/23/19 documented as of this encounter
--- OUTSIDE RECORDS SUMMARY | 2024-04-30 15:27 | XMS_ITS | Encounter Summary ---
Author Organization [employer] [facility] Address [address] [place] [address] 7t [place] [address] Care Team Providers Care Associate Professor Of Physics Name Role Phone Sariah Vickers Primary Care Provider [phone] Reason for Visit * Reason Comments Med Refill Encounter Details Date Type Department Care Team (Late Contact Info) Description 02/06/2022 Refill [facility] MEDICINE [address] [place] [address] Sariah Vickers ANP 230 [place] [address] Social History Tobacco Use Types Packs/Day Years [...] Description 07/02/2024 11:00 AM EDT Clinical Support [facility] MEDICINE [address] [place] [address] Azeb Hall, RN 505 [place] [address] 07/15/2024 1:00 PM EDT Office Visit [facility] MEDICINE 230 [place] [address] Sariah Vickers ANP 230 [place] [address] 08/04/2024 1:00 PM EDT Office Visit [facility] ADULT DENTAL 230 [place], [place] [phone] Nuvia Duarte 230 [place] [address] documented as of this encounter Visit Diagnoses Not on filedocumented in this encounter Care Teams Associate Professor Of Physics Relationship Specialty Start Date End Date Sariah Vickers ANP 230 [place] [address] PCP - General Family Medicine 09/23/19 documented as of this encounter
--- OUTSIDE RECORDS SUMMARY | 2024-04-30 15:27 | XMS_ITS | Encounter Summary ---
Author Organization [employer] [facility] Address [address] [place] [address] 7t [place] [address] Care Team Providers Care Horticultural Nursery Assistant Name Role Phone Sariah Vickers Primary Care Provider [phone] Encounter Details Date Type Department Care Team (Latest Contact Info) Description 04/14/2020 Abstract [facility] CONVERSIONS Dental, Provider, DDS Social [...] Description 07/02/2024 11:00 AM EDT Clinical Support [facility] MEDICINE [address] [place] [address] Azeb Hall RN 505 [place] [address] 07/15/2024 1:00 PM EDT Office Visit [facility] MEDICINE 230 [place] [address] Sariah Vickers ANP 230 [place] [address] 08/04/2024 1:00 PM EDT Office Visit [facility] ADULT DENTAL [address] [place] [address] Nuvia Duarte [address] [place] [address] documented as of this encounter Visit Diagnoses Not on filedocumented in this encounter Care Teams Horticultural Nursery Assistant Relationship Specialty Start Date End Date Sariah Vickers ANP 230 [place] [address] PCP - General Family Medicine 09/23/19 documented as of this encounter
--- OUTSIDE RECORDS SUMMARY | 2024-04-30 15:27 | XMS_ITS | Encounter Summary ---
Author Organization [employer] [facility] Address [address] [place] [address] 7t [place] [address] Care Team Providers Care Day Care Provider Name Role Phone Sariah Vickers Primary Care Provider [phone] Encounter Details Date Type Department Care Team (Latest Contact Info) Description 05/15/2018 Abstract [facility] CONVERSIONS Dental, Provider, DDS Social History [...] Description 07/02/2024 11:00 AM EDT Clinical Support [facility] MEDICINE [address] [place] [address] Azeb Hall RN 505 [place] [address] 07/15/2024 1:00 PM EDT Office Visit [facility] MEDICINE 230 [place] [address] Sariah Vickers ANP 230 [place] [address] 08/04/2024 1:00 PM EDT Office Visit [facility] ADULT DENTAL [address] [place] [address] Nuvia Duarte [address] [place] [address] documented as of this encounter Visit Diagnoses Not on filedocumented in this encounter Care Teams Day Care Provider Relationship Specialty Start Date End Date Sariah Vickers ANP 230 [place] [address] PCP - General Family Medicine 09/23/19 documented as of this encounter
--- OUTSIDE RECORDS SUMMARY | 2024-04-30 15:28 | XMS_ITS | Clinical Summary ---
Author Organization [employer] Address [address] [place] [address] Care Team Providers Care Supervisor Pile Driving Name Role Phone Anthony Ruiz Primary Care Provider [phone] Allergies Active Allergy Reactions Criticality Noted Date [...] tablet by mouth in the morning. Active Lactobacillus-In ulin ([facility] Microstaq [facility]) capsule TAKE 1 CAPSULE BY MOUTH EVERY DAY 023 Active TRUEplus Lancets 33G misc TEST BLOOD [...] HOURS NEEDED 18 g 2 023 Active Combivent Respimat 20-100 MCG/ACT inhaler INHALE 1 PUFF FOUR TIMES DAILY 023 Active Misc. Devices (Pulse Oximeter For Finger) misc 1 each 2 times daily. 1 each 023 Active Baqsimi Two Pack 3 MG/DOSE nasal powderIndication s:Type 2 diabetes mellitus with diabetic neuropathy, with long-term current use of insulin ([facility]) USE 1 SPRAY (3MG) IN ONE NOSTRIL FOR A PATIENT WITH SEVERE HYPOGLYCEMIA WHO IS NOT RESPONSIVE AND UNABLE SELF-TREAT WITH GLUCOSE. AFTERWARDS TURN ON SIDE. MAY REPEAT IN 15MINUTES IF PATIENT DOES NOT RESPOND. 2 each 1 024 Active busPIRone (Buspar) 15 MG tablet Take 15 mg by mouth 3 times daily. 024 Active insulin lispro (HumaLOG KWIKPEN) 100 UNIT/ML injectionIndicat ions:Type 2 diabetes mellitus with hyperlipidemia (CMS/HCC) ([facility]) Inject 2 Units under the skin with breakfast, with lunch, and with evening meal. As needed as directed by provider 6 mL 1 024 Active TechLite Plus Pen [place] 32G X 4 MM miscIndications: Type 2 diabetes mellitus with hyperlipidemia ([facility]) ([facility]) USE DIRECTED THREE TIMES DAILY 100 each 5 024 Active atorvastatin (Lipitor) 80 MG tabletIndication s:High cholesterol TAKE 1 TABLET BY MOUTH AT BEDTIME 90 tablet 1 024 Active potassium chloride CR (Klor-Con M20) 20 MEQ ER tablet TAKE 1 TABLET BY MOUTH TWICE DAILY IN THE MORNING AND IN THE EVENING WITH FOOD 180 tablet 1 024 Active Diclofenac Sodium 1 % gelIndications:C hronic bilateral low back pain, unspecified whether sciatica present APPLY 2 GRAMS TOPICALLY TO AFFECTED AREA(S) ONCE DAILY NEEDED FOR PAIN 100 g 1 024 Active glucose 4 g chewable tabletIndication s:Type 2 diabetes mellitus with hyperlipidemia ([facility]) ([facility]) CHEW 4 TABLETS BY MOUTH NEEDED LOW FOR BLOOD SUGAR 50 tablet 12 024 Active Ozempic, 0.25 or 0.5 MG/DOSE, 2 MG/3ML solution pen-injectorIndi cations:Type 2 diabetes mellitus with hyperlipidemia ([facility]) ([facility]) INJECT 0.5 MG SUBCUTANEOUSLY EVERY 7 DAYS IN THE ABDOMEN, THIGHS, OR UPPER ARM, ROTATE INJECTION SITES. 3 mL 1 024 Active montelukast (Singulair) 10 MG tablet TAKE 1 TABLET BY MOUTH EVERY EVENING 90 tablet 1 024 Active amLODIPine (Norvasc) 10 MG tablet TAKE 1 TABLET BY MOUTH EVERY EVENING 90 tablet 1 024 Active Alcohol Swabs (Alcohol Prep) 70 % pads USE DAILY DIRECTED 100 each 11 024 Active Multiple Vitamins-Mineral s (CertaVite/Antio xidants) [...] Type 2 diabetes mellitus with hyperlipidemia (CMS/HCC) ([facility]) Apply 1 sensor every 14 days 2 each 11 025 Active Continuous Glucose Coat Check Attendant (FreeStyle Jalil 2 [place]) deviceIndication s:Type 2 diabetes mellitus with hyperlipidemia (CMS/HCC) ([facility]) Use to check blood sugar at least [...] FOR SEVERE PAIN 60 tablet 025 Active predniSONE (Deltasone) 20 MG tablet Take 2 tablets by mouth Once per day. 025 Active metoclopramide (Reglan) 5 MG tablet Take 1 tablet by mouth every 6 (six) hours during the day. 025 Active Blood Glucose Monitoring Suppl (FreeStyle [place] Lite) w/Device kit USE DIRECTED 023 2024 Discontinued(M ed list cleanup (will not trigger notification to Pharmacy)) famotidine (Pepcid) 20 MG tabletIndication s:Heartburn Take 1 tablet (20 mg) by mouth 2 times daily. 60 tablet 11 023 2024 Discontinued(M ed list cleanup (will not trigger notification to Pharmacy)) metoclopramide (Reglan) 10 MG tablet TAKE 1 TABLET BY MOUTH THREE TIMES DAILY 023 2024 Discontinued(M ed list cleanup (will not trigger notification to Pharmacy)) Continuous Glucose Coat Check Attendant (Mompery Jalil 2 [place]) device Use to check blood sugar at [...] on package instructions 21 tablet 025 2024 Discontinued(M ed list cleanup (will not trigger notification to Pharmacy)) Active [...] with [facility] for OP therapy and psychiatry services. clinician will be available if needed during next medical appointment. PLAN: (check all that apply) Continue with current services (defined as services in the past 12 months) . Pt is engaged with OP therapy and psychiatry services with [facility] @ [facility] Excessive attrition of teeth, generalized 2023 [...] with [facility] for OP therapy and psychiatry services. clinician will be available if needed during next medical appointment. PLAN: (check all that apply) Continue with current services (defined as services in the past 12 months) . 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 Sees psych provider every two months and therapist bi-weekly. Pt will reach out to clinician as needed. Assessment & Plan (04/10/2023 11:08 AM EST): PLAN: (check all that apply) Behavioral Health Integration Plan Patient Self Plan Patient to reach out to [facility] team as needed Assessment & Plan (08/07/2022 [...] healthy manner PLAN: 1. Follow up with [facility]: Not recommended for follow-up 2. Patient goal is: reduce anxiousness 3. Behavioral Recommendations a. Patient will comply with medication b. Patient may request to speak with a [facility] during next PCP visit, if needed Chronic [...] 07/31/2022 10/29/2022 Bilateral hand pain 07/31/2022 10/30/19 23 Oral candidiasis 07/31/2022 10/29/2022 Cubital tunnel syndrome [...] Encounters Date Type Department Care Team Description 04/29/2024 Telephone [facility] [address] [place] [address] Anthony Ruiz ANP Referral 04/29/2024 Travel 04/26/2024 Refill [facility] [address] [place] [address] Anthony Ruiz ANP Cervicalgia 04/23/2024 11:30 AM EST Clinical Support [address] [address] Azeb Hall, MARTIN Long-term current use of opiate analgesic 04/23/2024 Telephone [facility] [address] [place] [address] Azeb Hall, MARTIN 04/23/2024 Travel 04/21/2024 Telephone [facility] [address] [place] [address] Chava Presley MD 04/20/2024 11:00 AM EST Office Visit [facility] [address] [address] Chava Presley MD Posterior chest pain (Primary Dx); Asthma-COPD overlap syndrome (CMS/HCC); Neck pain 04/20/2024 Orders Only [facility] [address] [place] [address] Chava Presley MD 04/15/2024 1:30 PM EST Office Visit [facility] [address] [place] [address] Anthony Ruiz ANP Umbilical hernia without obstruction and without gangrene (Primary Dx); Type 2 diabetes mellitus with hyperlipidemia (CMS/HCC) (CMS/HCC); Acute cough 04/15/2024 Travel 04/12/2024 Orders Only [facility] External Provider, [facility] 04/12/2024 Telephone [facility] [address] [place] [address] Anthony Ruiz ANP Chart Prep 04/06/2024 Telephone [facility] [address] [place] [address] Anthony Ruiz ANP Nurse Triage 04/06/2024 Refill [facility] [address] [place] [address] Anthony Ruiz ANP Severe persistent asthma without complication 04/02/2024 Refill [facility] [address] [place] [address] Anthony Ruiz ANP Neck pain 04/02/2024 Refill [facility] [address] [place] [address] Anthony Ruiz ANP Essential hypertension; Chronic SI joint pain; Chronic bilateral low back pain, unspecified whether sciatica present 04/01/2024 Refill [facility] [address] [place] [address] Anthony Ruiz ANP Type 2 diabetes mellitus with hyperlipidemia (CMS/HCC) (CMS/HCC) (Primary Dx) 03/29/2024 Telephone [facility] [address] [place] [address] Candy Bains, DIRECTOR FAMILY Follow-up 03/29/2024 Orders Only [facility] [address] [place] [address] Anthony Ruiz ANP 03/28/2024 Refill [facility] [address] [place] [address] Anthony Ruiz ANP Cervicalgia 03/20/2024 Orders Only GENERIC EXTERNAL DATA DEPARTMENT Provider, Generic External Data 03/18/2024 Orders Only [facility] [address] [place] [address] Waldo Rojas MD Essential hypertension (Primary Dx) 03/17/2024 1:30 PM EST Office Visit [facility] [address] [place] [address] Anthony Ruiz ANP Type 2 diabetes mellitus with hyperlipidemia (CMS/HCC) (Primary Dx); Abscess 03/17/2024 Telephone [facility] [address] [place] [address] Anthony Ruiz ANP 03/17/2024 Travel 03/15/2024 Telephone [facility] [address] [place] [address] Candy Bains, MARTIN Paperwork/Forms 03/13/2024 Refill [facility] [address] [place] [address] Anthony Ruiz ANP Severe persistent asthma without complication 03/12/2024 Telephone [facility] [address] [place] [address] Anthony Ruiz ANP status check abscess 03/09/2024 Refill [facility] [address] [place] [address] Anthony Ruiz ANP Neck pain 03/03/2024 3:30 PM EST Office Visit [facility] [address] [place] [address] Anthony Ruiz ANP Panniculitis affecting sacrum (Primary Dx); Abscess; Spondylosis of lumbar region without myelopathy or radiculopathy 03/03/2024 Travel 03/03/2024 Refill [facility] [address] [place] [address] Anthony Ruiz ANP 03/02/2024 Telephone [facility] [address] [place] [address] Day Pool [place] chart prep 03/01/2024 Telephone [facility] [address] [place] [address] Anthony Ruiz ANP Durable Medical Equipment 03/01/2024 Refill [facility] [address] [place] [address] Anthony Ruiz ANP Cervicalgia 02/23/2024 2:00 PM EST Office Visit [facility] [address] [place] [address] Marianna Manzo MD Panniculitis affecting sacrum (Primary Dx) 02/23/[address] [address] Anthony Ruiz ANP Nurse Triage 02/20/[address] [address] Anthony Ruiz ANP Severe persistent asthma without complication 02/19/2024 Orders Only GENERIC EXTERNAL DATA DEPARTMENT Provider, Generic External Data 02/16/[address] [address] Batsheva Baker [place] March02/16/[address] [address] Anthony Ruiz ANP Med Refill 02/15/2024 Refill [facility] [address] [place], [place] [phone] Anthony Ruiz ANP Healthcare maintenance; Neck pain 02/13/2024 11:00 AM EST Office Visit [facility] [address] [address] Chava Presley MD Asthma-COPD overlap syndrome (CMS/HCC) (Primary Dx); COPD with asthma (CMS/HCC) 02/13/[address] [address] Anthony Ruiz ANP Med Refill 02/13/2024 Telephone [facility] [address] [place] [address] Vicenta Constantino, MARTIN [facility] triage (Saw [facility] 02/03/24:/Assessment:/ Asthma-COPD overlap syndrome/ chronic obstructive pulmonary disease / Plan: /Well controlled on current regimen of Xolair, Advair, Combivent, and albuterol MDI. / Will treat acute bronchitic exacerbation with a course of Levaquin 750 mg PO DAILY 10 tabs 0RF / /) 02/09/2024 Refill [facility] [address] [place] [address] Anthony Ruiz ANP Essential hypertension 02/04/2024 9:00 AM EST Clinical Support [facility] [address] [place] [address] Azeb Hall RN detention (current) use of opiate analgesic 02/04/2024 Refill [facility] [address] [place] [address] Anthony Ruiz ANP Cervicalgia 02/04/2024 Telephone [facility] [address] [place] [address] Anthony Ruiz ANP Med Refill 02/04/2024 Travel 02/02/2024 Telephone [facility] [address] [place], [place] [phone] Anthony Ruiz ANP Nurse Triage 01/31/2024 Refill [facility] [address] [place] [address] Anthony Ruiz ANP Chronic bilateral low back [...] the past 12 months, has t he [employer], gas, oil or water company threatened to [...] Sign Reading Time Taken Comments Blood Pressure 136/88 04/29/2024 11:28 AM EDT Pulse 94 04/29/2024 11:28 AM EDT Temperature 36.4 ??C (97.6 ??F) 04/20/2024 11:36 [...] 11:00 AM EDT Clinical Support [facility] [address] [place] [address] Azeb Hall, RN [address] [place] [address] 07/15/2024 1:00 PM EDT Office Visit [facility] [address] [place] [address] Anthony Ruiz, KAYLEE [address] [place] [address] 08/04/2024 1:00 PM EDT Office Visit [facility] [address] [place] [address] Nuvia Duarte [address] [place] [address] Health Maintenance Due Date Last Done Comments [...] DRUG SCREEN Routine 02/04/2024 9:31 AM EST detention (current) use of opiate analgesic ALBUMIN, RANDOM [...] - 04/23/2024 10:56 AM EST .UT[employer] cup Lot#[id number] Exp. 10/06/25 Internal Pass Control negative AMP, BAR, BUP, BZO, RENETTA, FTY, MDMA, MET, MOP, MTD, OXY, PCP, TCA, THC. Critical access hospital POINT OF CARE TEST ENTER/EDIT OR DERABLES Edited Result - Final * D Dimer High Sensitivity (04/20/2024 1:21 PM EST) D Dimer High Sensitivity 218 NG/ML [facility] Comment:D-DIMER HS REFERENCE RANGENote: Our [...] MD LAB BLOOD ORDERABLES Final Resul t [facility] [address] [place] [address] [phone] * XR Chest 2 Views (04/20/2024 1:05 PM EST) Anatomical Region Laterality Modality Chest Radiographic Griselda ging 04/20/2024 1:05 PM EST Narrative 04/21/2024 9:57 AM EST ? [facility] ?[address] ?[place] [address] ?XRay Report ? Signed ? Patient: Avinash Ho,Nuvia E ?MR ?? #: [id number] ? : 1960 ?Acct:[id number] ? Age/Sex: 63 / F ?ADM Date: 04/20/24 ? Loc: HO.XRAY ? Attending Dr: Chava Presley MD ? Ordering Physician: CHAVA PRESLEY MD ?? Date of Service: 04/20/24 ?? Procedure(s): XR chest 2V ?? Accession Number(s): [id number] ? cc: CHAVA PRESLEY MD; ANTHONY RUIZ [...] chest examination. ? Electronically signed by: ??Saad Lynda MD ??04/21/2024 09:54 AM EST RP ? Dictated By: ?Lynda,Saad S MD ? Signed By: ?<Electronically signed by Saad S Lynda, MD in OV> ?04/21/24 0954 ? DD/ 1305 ? TD/TT: 04/20/24 1310 ? Galvanizer: MSM ? Procedure Note Otoniel, Image - 04/21/[address] [address] XRay Report Signed Patient: Nuvia Fay EMR #: [id number] : 1960cct:[id number] Age/Sex: 63 / FADM Date: 04/20/24 Loc: HO.XRAY Attending Dr: Chava Presely MD Ordering Physician: CHAVA PRESLEY MD Date of Service: 04/20/24 Procedure(s): XR chest 2V Accession Number(s): [id number] cc: CHAVA PRESLEY MD; ANTHONY RUIZ NP [...] 04/21/24 0954 DD/ 1305 TD/TT: 04/20/24 1310 Galvanizer: NANCY Chava Presley MD IMG XR PROCEDURES Edited Result - Final * POCT Rapid Influenza B BAILEY ID NOW (04/15/2024 2:02 PM EST) Influenza B Negative Negative, Indeterminate [facility] QC Media Lot # [id number] [facility] Lot# Expiration Date [id number] [facility] Swab 04/15/2024 2:02 PM EST us Anthony PAGE POINT OF CARE TEST ENTER/EDIT OR DERABLES Final Result [facility] [address] [place] [phone] * POCT Rapid Covid-19 BinaxNOW (04/15/2024 2:01 PM EST) Rapid COVID Ag Negative QC Media Lot # [id number] Lot# Expiration Date ,026 Swab 04/15/2024 2:01 PM EST Anthony Ruiz ANP POINT OF CARE TEST ENTER/EDIT OR DERABLES Final Result * POCT Rapid Influenza A BAILEY ID NOW (04/15/2024 1:59 PM EST) Influenza A Negative Negative, Indeterminate [facility] QC Media Lot # [id number] [facility] Lot# Expiration Date , [facility] Swab 04/15/2024 1:59 PM EST Anhtony Ruiz [facility] POINT OF CARE TEST ENTER/EDIT OR DERABLES Edited Result - Final [facility] [address] [place] [address] [phone] * BI Mammogram Screening Tomosynthesis Bilateral (04/12/2024 1:48 PM EST) Anatomical Region Laterality Modality Breast Bilateral Mammography 04/12/2024 1:48 PM EST Narrative 04/17/2024 12:38 PM EST ? [facility] ? [address] ?[place] [address] ? Mammography Report ? Signed ? Patient: Nuvia Fay ?MR ?? #: [id number] ? : 1960 ?Acct:[id number] ? Age/Sex: 63 / F ?ADM Date: 02/24/25 ? Loc: HO.MAMMO ? Attending Dr: Monica Lozano CNEstefania ? Ordering Physician: Monica Lozano CNM ?Results: 2Beni ?? gn Findings ? Date of Service: 04/12/24 ?Follow Up: 1 Year From Orig ?? inal Mammogram ? Procedure(s): MM tomosynthesis screening BI ?? Accession Number(s): [id number] ? cc: Monica Lozano CNM; ANTHONY RUIZ [...] DD/ 1348 ? TD/TT: 04/12/24 1405 ? Galvanizer: ? Procedure Note Donotuseinterpreter, Image - 04/17/2024 [place] [facility] [address] [place], [place] [address] Mammography Report Signed Patient: Nuvia Fay EMR #: [id number] : 1960cct:[id number] Age/Sex: 63 / FADM Date: 04/12/24 Loc: HO.MAMMO Attending Dr: Monica Lozano CNM Ordering Physician: Monica Lozanoesults: 2Beni gn Findings Date of Service: 04/12/24Follow Up: 1 Year From Orig inal Mammogram Procedure(s): MM tomosynthesis screening BI Accession Number(s): [id number] cc: Monica Lozano CNM; ANTHONY RUIZ NP [...] by: Cherrie Roberts DO 04/17/2024 12:35 PM [facility] Dictated By: Cherrie Roberts DO Signed By: <Electronically signed by Cherrie Roberts DO in OV> 04/17/24 1235 DD/ 1348 TD/TT: 04/12/24 1405 Galvanizer: [facility] External Provider IMG BI PROCEDURES Edited Result - Final * CT Abdomen Pelvis w/ Contrast (03/20/2024 7:20 PM EST) Anatomical Region Laterality Modality Body, Pelvis, Abdomen Computed T omography 03/20/2024 7:20 PM EST Narrative 03/20/2024 7:23 PM EST ? [facility] ?[address] ?[place] [address] ? CT Scan Report ? Signed ? Patient: Avinash GamezNuvia hernandez ?MR ?? #: [id number] ? : 1960 ?Acct:[id number] ? Age/Sex: 63 / F ?ADM Date: 03/20/24 ? Loc: HO.ED ? Attending Dr: ? Ordering Physician: Maritza Mckeon ?? Date of Service: 03/20/24 ?? Procedure(s): CT abdomen pelvis w IV con ?? Accession Number(s): [id number] ? cc: Maritza Mckeon; ANTHONY RUIZ NP ? Report Number: ?? [id number]: Total DLP = ??844.00 mGy-cm ? CLINICAL HISTORY: abdominal wall cellulitis ?? abscess ? CT abdomen and pelvis with contrast ? Comparison: CT/WA/SR - CT ABDOMEN WO/W IV CON - [...] ? DD/ 19 ? TD/TT: 03/20/241919 ? Galvanizer: ? Procedure Note Vinicius Frederick - 03/20/[address] [place] [address] [address] Scan Report Signed Patient: Nuvia Fay EMR #: [id number] : 1960cct:[id number] Age/Sex: 63 / FADM Date: 03/20/24 Loc: HO.ED Attending Dr: Ordering Physician: Maritza Mckeon Date of Service: 03/20/24 Procedure(s): CT abdomen pelvis w IV con Accession Number(s): [id number] cc: Maritza Mckeon; ANTHONY RUIZ NP Report Number: [id number]: Total DLP = 844.00 mGy-cm CLINICAL HISTORY: abdominal wall cellulitis abscess CT abdomen and pelvis with contrast Comparison: CT/WA/SR - CT ABDOMEN WO/W IV CON - [...] in OV> 03/20/241921 DD/ 19 TD/TT: 03/20/241919 Galvanizer: [facility] External Provider IMG CT PROCEDURES Edited Result - Final * (ABNORMAL) Glucose, Whole Blood (03/20/2024 5:01 PM EST) Only the most recent of2 resultswithin the time period is included. Glucose, Whole Blood 163(H) 60 - 115 mg/dL [facility] Comment:METER #: [id number] 03/20/2024 5:01 PM EST 03/20/2024 5:05 PM EST Generic External Data Provider LAB BLOOD ORDERAB LES Final Result [facility] [address] [place] [phone] * (ABNORMAL) CBC auto differential (03/20/2024 2:28 PM EST) White Blood Count 6.8 4.8 - 10.8 X10*3/uL [facility] Red Blood Count 4.08(L) 4.20 - 5.50 X10*6/uL [facility] Hemoglobin 13.0 12.0 - 16.0 g/dl [facility] Hematocrit 38.0 37.0 - 47.0 % [facility] Mean Corpuscular Volume 93.1 80.0 - 98.0 fL [facility] Mean Corpuscular Hemoglobin 31.9 27.0 - 33.0 pg [facility] Mean Corpuscular HGB Conc 34.2 31.0 - 35.0 g/dl [facility] Red Cell Distribution Width 14.1 11.0 - 16.0 % [facility] Platelet Count 280 160 - 400 X10*3/uL [facility] Mean Platelet Volume 9.2(L) 9.4 - 12.3 fL [facility] Neutrophils Percent Auto 53.1 45 - 73 % [facility] Imm Gran Pct Auto 0.1 0.0 - 0.4 % [facility] Lymphocytes Percent Auto 36.2 20 - 40 % [facility] Monocytes Percent Auto 7.9 2 - 11 % [facility] Eosinophils Percent Auto 2.4 0 - 4 % [facility] Basophils Percent Auto 0.3 0 - 2 % [facility] NRBC Pct Auto 0.0 0.0 - 0.2 /100WBC [facility] Neutrophils Absolute Auto 3.6 2.0 - 8.3 x10*3/uL [facility] Imm Gran Abs Auto 0.01 0.00 - 0.03 X10*3/uL [facility] Lymphocytes Absolute Auto 2.5 1.2 - 4.9 X10*3/uL [facility] Monocytes Absolute Auto 0.5 0.1 - 1.2 X10*3/uL [facility] Eosinophils Absolute Auto 0.2 0.0 - 0.4 X10*3/uL [facility] Basophils Absolute Auto 0.0 0.0 - 0.2 X10*3/uL [facility] NRBC Abs Auto 0.000 0.0 - 0.012 X10*3/uL [facility] 03/20/2024 2:28 PM EST 03/20/2024 2:33 PM EST us Generic External Data Provider LAB BLOOD ORDERAB LES Final Result Performing Organization Address [facility] Co de Phone Number [facility] [address] [place] [phone] * (ABNORMAL) Sed Rate by Modified [place] (03/20/2024 2:28 PM EST) Erythrocyte Sedimentation Rate 46(H) 0 - 20 MM/HR [facility] Comment:Patients with polycy themia and many hemoglobin abnormalitiesmay have depressed sed rates whereas patients with anemiamay have elevated sed rates. 03/20/2024 2:28 PM EST 03/20/2024 2:58 PM EST us Generic External Data Provider LAB BLOOD ORDERAB LES Final Result Performing Organization Address [facility] Co de Phone Number [facility] [address] [place] [phone] * (ABNORMAL) C-reactive Protein (03/20/2024 2:28 PM EST) C Reactive Protein 3.90(H) < or = 0.50 mg/dL [facility] 03/20/2024 2:28 PM EST 03/20/2024 2:33 PM EST us Generic External Data Provider LAB BLOOD ORDERAB LES Final Result Performing Organization Address [facility] Co de Phone Number [facility] [address] [place] [address] [phone] * Magnesium (03/20/2024 2:28 PM EST) Magnesium 2.2 1.6 - 2.6 mg/dL [facility] 03/20/2024 2:28 PM EST 03/20/2024 2:33 PM EST Generic External Data Provider LAB BLOOD ORDERAB LES Final Result Performing Organization Address [facility] Co de Phone Number [facility] [address] [place] [address] [phone] * Lipase (03/20/2024 2:28 PM EST) Lipase 16 8 - 78 U/L [facility] 03/20/2024 2:28 PM EST 03/20/2024 2:33 PM EST us Generic External Data Provider LAB BLOOD ORDERAB LES Final Result Performing Organization Address [facility] Co ca Phone Number [facility] [address] [place] [address] [phone] * Lactic Acid (03/20/2024 2:28 PM EST) Lactic Acid 0.8 0.5 - 2.0 mmol/L [facility] 03/20/2024 2:28 PM EST 03/20/2024 2:33 PM EST Generic External Data Provider LAB BLOOD ORDERAB LES Final Result Performing Organization Address [facility] de Phone Number [facility] [address] [place] [address] [phone] * (ABNORMAL) Hepatic Function Panel (03/20/2024 2:28 PM EST) Bilirubin, Total 0.4 0.0 - 1.0 mg/dL [facility] Bilirubin, Direct 0.2 0.0 - 0.5 mg/dL [facility] Aspartate Amino Transferase 173(H) 5 - 31 U/L [facility] Alanine Aminotransferase 249(H) 0 - 31 U/L [facility] Total Protein 7.8 6.5 - 8.0 g/dL [facility] Albumin Level 3.8 3.5 - 5.0 g/dL [facility] Alkaline Phosphatase 138(H) 39 - 117 U/L [facility] 03/20/2024 2:28 PM EST 03/20/2024 2:33 PM EST us Generic External Data Provider LAB BLOOD ORDERAB LES Final Result [facility] [address], [place] [phone] * (ABNORMAL) Basic Metabolic Panel (03/20/2024 2:28 PM EST) Sodium 143 135 - 145 mmol/L [facility] Potassium 3.7 3.3 - 5.1 mmol/L [facility] Chloride 112(H) 96 - 108 mmol/L [facility] Carbon Dioxide 23 22 - 29 mmol/L [facility] Anion Gap 12 12 - 20 [facility] Urea Nitrogen (BUN) 13 9 - 16 mg/dL [facility] Creatinine, Serum 0.82 0.5 - 1.4 mg/dL [facility] Creatinine Clr Calc Pharmacy 73.7 [facility] Comment:Provided height and weight: 157.48 cm,91.172 kg.eGFR (calculated from the MDRD study equation) and eCrCl(calculated from the Cockcroft-Gault equation) are based ondifferent parameters and may not yield comparable results.If eCrCl result is absurd, please check patient'sheight/weight. Estimated Glomerular Filt Rate >60 [facility] Comment:Chronic Kidney Disea se: Estimated GFR < 60 mL/min/1.77b6Vlxwxw Kidney Disease: Estimated GFR < 15 mL/min/1.73m2 Glucose 112 60 - 115 mg/dL [facility] Calcium 8.7 8.4 - 10.2 mg/dL [facility] 03/20/2024 2:28 PM EST 03/20/2024 2:33 PM EST us Generic External Data Provider LAB BLOOD ORDERAB LES Final Result [facility] [address] [place] [phone] * XR Chest 1 View (02/29/2024 1:36 PM EST) Anatomical Region Laterality Modality Chest Radiographic Griselda ging 02/29/2024 1:36 PM EST Narrative 02/29/2024 1:38 PM EST ? [facility] ?[address] ?[place] [address] ?XRay Report ? Signed ? Patient: Avinash Ho,Nuvia E ?MR ?? #: [id number] ? : 1960 ?Acct:[id number] ? Age/Sex: 63 / F ?ADM Date: 02/29/24 ? Loc: HO.ED ? Attending Dr: ? Ordering Physician: Kourtney Jones MD ?? Date of Service: 02/29/24 ?? Procedure(s): XR chest 1V ?? Accession Number(s): [id number] ? cc: Kourtney Jones MD; ANTHONY RUIZ [...] DD/ 1336 ? TD/TT: 02/29/24 1336 ? Galvanizer: ? Procedure Note Otoniel, Vinicius - 02/29/2024 [facility] [address] [place] [address] XRay Report Signed Patient: Nuvia Fay EMR #: [id number] : 1960cct:[id number] Age/Sex: 63 / FADM Date: 02/29/24 Loc: HO.ED Attending Dr: Ordering Physician: Kourtney Jones MD Date of Service: 02/29/24 Procedure(s): XR chest 1V Accession Number(s): [id number] cc: Kourtney Jones MD; ANTHONY RUIZ NP [...] 02/29/24 1337 DD/ 1336 TD/TT: 02/29/24 1336 Galvanizer: [facility] External Provider IMG XR PROCEDURES Edited Result - Final * Bacterial Vaginosis (02/19/2024 1:18 PM EST) TRICHOMONAS VAGINALIS DETECTION BY PCR NOT DETECTED Not Detect [facility] BACTERIAL VAGINOSIS DETECTION BY PCR NEGATIVE Negative [facility] Comment:The BV organism targ ets [...] DETECTION BY PCR NOT DETECTED Not Detect [facility] Eufemia glab krusei PCR NOT DETECTED Not Detect [facility] 02/19/2024 1:18 PM EST 02/19/2024 3:45 PM EST Generic External Data Provider LAB MICROBIOLOGY - GENERAL ORDERABLES Final Result Performing Organization Address [facility] de Phone Number [facility] [address] [place] [phone] * Albumin, Random Urine W/Creatinine (01/02/2024 8:44 AM EST) Creatinine, Urine 47.20 mg/dL [facility] Microalbumin Urine 7.0 mg/L [facility] Microalbum Creatinine Ratio Ur 14.8 <30 ug/mg cr [facility] Comment:Albumin/Creatinine R atio Reference Ranges: Normal: < 30 ug/mg creatinine Microalbuminuria: 30 - 300 ug/mg creatinineClinical Albuminuria: > 300 ug/mg creatinine Urine (Urine, Random) 01/02/2024 8:44 AM EST 01/02/2024 11:09 AM EST Critical access hospital LAB URINE ORDERABLES Final Resul t Performing Organization Address [facility] de Phone Number [facility] [address] [place] [address] [phone] * (ABNORMAL) Hemoglobin A1c (01/02/2024 8:44 AM EST) Hemoglobin A1c 6.6(H) <6.0 % [facility] Comment:Hemoglobin A1C Refer ence Range Adults: 4.8 - 6.0 % Non diabetic: < 6.0 % Goal: < 7.0 %Additional Action Suggested: > 8.0 %Note: Hemoglobin A1c results are invalid for patients with abnormal amounts of HbF. Blood transfusions may impact the HbA1c concentration in the patient sample. Estimated Average Glucose 143 mg/dL [facility] Comment:eAG = Estimated ave rage glucose which is %A1C expressed asaverage glucose, using the formula of the S4T-CdbirhzMaivbmq Glucose study (ADAG), Diabetes Care, Vol.31,#8,2007 01/02/2024 8:44 AM EST 01/02/2024 11:03 AM EST Generic External Data Provider LAB BLOOD ORDERAB LES Final Result [facility] [address] [place] [phone] * Lipid Panel, Standard (01/02/2024 8:44 AM EST) Triglycerides 93 <150 mg/dL [facility] Comment:Desirable Triglyceri de: less than 150 mg/dLBorderline High Triglyceride 150-199 mg/dLHigh Triglyceride: 200-499 mg/dLVery High Triglyceride: greater than or equal to 5OO mg/dL Cholesterol 177 <200 mg/dL [facility] Comment:Desirable Cholestero l: less than 200 mg/dLBorderline High Cholesterol: 200-239 mg/dLHigh Cholesterol: greater than 239 mg/dL LDL Cholesterol Calculated 90 <100 mg/dL [facility] Comment:Desirable LDL: less than 100 mg/dLNear Optimal/Above Optimal LDL: 110- 129 mg/dLBorderline High LDL: 130-159 mg/dLHigh LDL: 160-189 mg/dLVery High LDL: greater than or equal to 190 mg/dL HDL Cholesterol 69 >40 mg/dL [facility] Comment:Desirable HDL: great er than 40 mg/dL Note: This HDL assay may give artificially low results in patients with liver disease. 01/02/2024 8:44 AM EST 01/02/2024 11:03 AM EST Generic External Data Provider LAB BLOOD ORDERAB LES Final Result [facility] [address] [place] [phone] [phone] * (ABNORMAL) Hm Colonoscopy (12/27/2021) Colonoscopy Abnormal(A ) Normal us Historical Provider HEALTH MAINTENANCE Final Result * HPV E6/E7 RFLX ALFRED 16 18/45 (05/09/2020 11:19 AM EDT) HPV mRNA E6/E7 rflx Not Detected Not Detected [facility] Comment: Methodology: Brand Attendant-Mediated Amplification This assay detects E6/E7 viral messenger RNA (mRNA) from 14 high-risk HPV types (16,18,31,33,35,39,45,51,52,56,58,59,66,68). The analytical performance characteristics of this assay have been determined by [employer]. The modifications have not been cleared or approved by the FDA. This assay has been validated pursuant to the CLIA regulations and is used for clinical purposes. For additional information, please refer to http://education.[employer]/faq/CBS781t5 (This link if provided for information/ educational purposes only.) THIS TEST WAS PERFORMED AT: [employer] [address] [place] [address] [address] [place], [place] ??[phone] HERNAN WARREN MD 05/09/2020 11:1 9 AM EDT Yohana VailRussell HISTORICAL/NON ORDERABLE LABS Fi nal Result Performing Organization Address City/State/[facility] Co de Phone Number [facility] [address] from Last 3 Months or Most Recently Relevant to Health Maintenance Insurance [facility] Care Teams Supervisor Pile Driving Relationship Specialty Start Date End Date Anthony Ruiz ANP [address] [place] [address] PCP - General Family Medicine 09/23/19
--- OUTSIDE RECORDS SUMMARY | 2024-04-30 15:28 | XMS_ITS | Encounter Summary ---
Author Organization [employer] Address [address] [facility] 7t [place] [address] Care Team Providers Care Certified Performance Technologist Name Role Phone Sariah Vickers Primary Care Provider [phone] Reason for Visit * Reason Comments Med Refill Encounter Details Date Type Department Care Team ([facility] st Contact Info) Description 12/17/2023 Refill [facility] [address] [place] [address] Sariah Vickers ANP [address] [place] [address] Chronic SI joint pain Social History Tobacco [...] Description 07/02/2024 11:00 AM EDT Clinical Support [facility] [address] [place] [address] Azeb Hall RN [address] [place] [address] 07/15/2024 1:00 PM EDT Office Visit [facility] [address] [place] [phone] Sariah Vickers ANP [address] [place] [address] 08/04/2024 1:00 PM EDT Office Visit [facility] ADULT DENTAL [address] [place] [address] Nuvia Duarte [address] [place] [address] documented as of this encounter Goals Goal Patient Goal Type Associated Problems Recent Progress Patient-Stated? Author Blood Pressure < 140/90 Blood Pressure 136/88(2024 11:28 AM EDT) No Phanis-Veronica Medinasa, PharmD Record Your Blood Sugar As Directed General No Phanis-GambVeronica bucksa, PharmD Hemoglobin A1c < 7 Result Component 6.6( 4 8:44 AM EST) No PhanisAida Cheng, PharmD documented as of this encounter Visit Diagnoses Diagnosis Chronic SI joint pain Disorders of sacrum documented in this encounter Additional Health Concerns Assessment Noted Time PHQ-9 Depression Total Score: 12 09/30/ 024 2:58 PM EDT documented as of this encounter Care Teams Certified Performance Technologist Relationship Specialty Start Date End Date Sariah Vickers ANP [address] [place] [address] PCP - General Family Medicine 09/23/19 documented as of this encounter
--- OUTSIDE RECORDS SUMMARY | 2024-04-30 15:28 | XMS_ITS | Encounter Summary ---
Author Organization [employer] Address [address] [facility] [address] 7[address] [place] [address] Care Team Providers Care Electrical Controls Engineer Name Role Phone Sariah Vickers Primary Care Provider [phone] Encounter Details Date Type Department Care Team (Late st Contact Info) Description 04/21/[address] [facility] [address] [place], [place] [phone] Chava Presley MD [address] [place] [address] Social History Tobacco Use Types Packs/Day Years [...] 2:36 PM EST Incoming TC from pt. [facility] staff Jenna assisting with translation. Pt [...] left for pt to return call to [facility]. Pt to F/U as needed. [facility] staff Damaris assisting with translation. ----- [...] Description 07/02/2024 11:00 AM EDT Clinical [address] [facility] [address] [place] [address] Azeb Hall, RN [address] [place] [address] 07/15/2024 1:00 PM EDT Office Visit [facility] [address] [place] [address] Sariah Vickers ANP [address] [place] [address] 08/04/2024 1:00 PM EDT Office Visit [facility] ADULT DENTAL [address] [place] [address] Nuvia Duarte [address] [place] [address] documented as of this encounter Goals Goal Patient Goal Type Associated Problems Recent Progress Patient-Stated? Author Blood Pressure < 140/90 Blood Pressure 136/88(2024 11:28 AM EDT) No Phanis-GambVeronica bucksa, PharmD Record Your Blood Sugar As Directed General No Phanis-GambVeronica bucksa, PharmD Hemoglobin A1c < 7 Result Component 6.6( 8:44 AM EST) No Phanis-GambAida buck, PharmD documented as of this encounter Visit Diagnoses Not on filedocumented in this encounter Additional Health Concerns Assessment Noted Time PHQ-9 Depression Total Score: 12 08/2 024 2:58 PM EDT documented as of this encounter Care Teams Electrical Controls Engineer Relationship Specialty Start Date End Date Sariah Vickers ANP [address] [place] [phone] PCP - General Family Medicine 09/23/19 documented as of this encounter
--- OUTSIDE RECORDS SUMMARY | 2024-04-30 15:28 | XMS_ITS | Encounter Summary ---
Author Organization [employer] Address [address] [facility] [address] 7t [place] [address] Care Team Providers Care Truck Operator Name Role Phone Sariah Vickers Primary Care Provider [phone] Reason for Visit * Reason Comments Med Refill Encounter Details Date Type Department Care Team ([facility] st Contact Info) Description 10/03/2023 Refill [facility] [address] [place] [address] Sariah Vickers ANP [address] [place] [address] Chronic SI joint pain Social History Tobacco [...] Description 07/02/2024 11:00 AM EDT Clinical Support [facility] [address] [place] [address] Azeb Hall RN [address] [place] [address] 07/15/2024 1:00 PM EDT Office Visit [facility] [address] [place] [address] Sariah Vickers ANP [address] [place] [address] 08/04/2024 1:00 PM EDT Office Visit [facility] ADULT DENTAL [address] [place] [address] Nuvia Duarte [address] [place] [address] documented as of this encounter Goals Goal Patient Goal Type Associated Problems Recent Progress Patient-Stated? Author Blood Pressure < 140/90 Blood Pressure 136/88(2024 11:28 AM EDT) No Phanis-Veronica Medinasa, PharmD Record Your Blood Sugar As Directed General No Phanis-Gambsd urbina, Aida, PharmD Hemoglobin A1c < 7 Result Component 6.6( 4 8:44 AM EST) No PhanisAida Cheng, PharmD documented as of this encounter Visit Diagnoses Diagnosis Chronic SI joint pain Disorders of sacrum documented in this encounter Additional Health Concerns Assessment Noted Time PHQ-9 Depression Total Score: 12 024 2:58 PM EDT documented as of this encounter Care Teams Truck Operator Relationship Specialty Start Date End Date Sariah Vickers ANP [address] [place] [address] PCP - General Family Medicine 09/23/19 documented as of this encounter
--- OUTSIDE RECORDS SUMMARY | 2024-04-30 15:28 | XMS_ITS | Encounter Summary ---
Author Organization [employer] Address [address] [facility] 7t [place] [address] Care Team Providers Care Photography Spotter Name Role Phone Sariah Vickers Primary Care Provider [phone] Encounter Details Date Type Department Care Team [...] Description 07/02/2024 11:00 AM EDT Clinical Support [facility] [address] [place] [phone] Azeb Hall, MARTIN [address] [place] [address] 07/15/2024 1:00 PM EDT Office Visit [facility]INE [address] [place] [address] Sariah Vickers ANP 230 [place] [address] 08/04/2024 1:00 PM EDT Office Visit [facility] ADULT DENTAL [address] [place] [address] Nuvia Duarte [address] [place] [address] documented as of this encounter Goals Goal [...] documented as of this encounter Care Teams Photography Spotter Relationship Specialty Start Date End Date Sariah Vickers ANP [address] [place] [address] PCP - General Family Medicine 09/23/19 documented as of this encounter
--- OUTSIDE RECORDS SUMMARY | 2024-04-30 15:28 | XMS_ITS | Encounter Summary ---
Author Organization [employer] Address [address] [facility] [address] [place] [address] Care Team Providers Care Laundry Superintendent Name Role Phone Sariah Vickers Primary Care Provider [phone] Reason for Visit * Reason Comments Med Refill Encounter Details Date Type Department Care Team ([facility] st Contact Info) Description 10/03/2023 Refill [facility] [address] [place] [address] Sariah Vickers ANP [address] [place] [address] Chronic SI joint pain Social History Tobacco [...] Description 07/02/2024 11:00 AM EDT Clinical Support [facility] [address] [place] [address] Azeb Hall RN [address] [place] [address] 07/15/2024 1:00 PM EDT Office Visit [facility] [address] [place] [address] Sariah Vickers ANP [address] [place] [address] 08/04/2024 1:00 PM EDT Office Visit [facility] [address] [place] [address] Nuvia Duarte [address] [place] [address] documented as of this encounter Goals Goal [...] documented as of this encounter Care Teams Laundry Superintendent Relationship Specialty Start Date End Date Sariah Vickers ANP [address] [place] [address] PCP - General Family Medicine 09/23/19 documented as of this encounter
--- OUTSIDE RECORDS SUMMARY | 2024-04-30 15:28 | XMS_ITS | Encounter Summary ---
Author Organization [employer] Address [address] [facility] 7t [place] [address] Care Team Providers Care Mechanical Assembly Name Role Phone Sariah Vickers Primary Care Provider Encounter Details Date Type Department Care Team (Late st Contact Info) Description 04/01/2024 Refill [facility] [address] [place] [address] Sariah Vickers ANP [address] [place] [address] Type 2 diabetes mellitus with hyperlipidemia (CMS/HCC) [...] Pierre PharmD - 04/01/2024 12:57 PM EST [facility] Pharmacy requested prescription for Freestyle jalil 2 reader to replace lost reader for patient. PCP agreeable to provide replacement ahead of visit 04/15/2024. Pharmacist sent prescription for Freestyle Jalil 2 reader, use to scan sensor every 8 hours to [facility] pharmacy. documented in this encounter Plan of Treatment Upcoming Encounters Date Type Department Care Team (Late st Contact Info) Description 07/02/2024 11:00 AM EDT Clinical Support [facility] [address] [place] [phone] Azeb Hall RN [address] [place] [address] 07/15/2024 1:00 PM EDT Office Visit [facility] [address] [place] [address] Sariah Vickers ANP [address] [place] [address] 08/04/2024 1:00 PM EDT Office Visit [facility] ADULT DENTAL [address] [place] [address] Nuvia Duarte [address] [place] [address] documented as of this encounter Goals Goal [...] documented as of this encounter Care Teams Mechanical Assembly Relationship Specialty Start Date End Date Sariah Vickers ANP [address] [place] [address] PCP - General Family Medicine 09/23/19 documented as of this encounter
--- OUTSIDE RECORDS SUMMARY | 2024-04-30 15:28 | XMS_ITS | Encounter Summary ---
Author Organization [employer] [facility] Address [address] [facility] 7t [place] [address] Care Team Providers Care Home Health Caregiver Name Role Phone Sariah Vickers Primary Care Provider [phone] Reason for Referral * Medications - Closed Specialty Diagnoses / Procedures Referred By Queenie gomez Referred To Contact Diagnoses Chronic bilateral low back pain, unspecified whether sciatica present Sariah Vickers ANP [address] [place] [address] Phone: tel: fax: Referral ID Status Reason Start Date Expiration Date Visits Re quested Visits Authorized [id number] Closed 1 1 Reason for Visit * Reason Comments Med Refill Encounter Details Date Type Department Care Team (Late st Contact Info) Description 04/02/[address] [facility] [address] [place] [phone] Sariah Vickers ANP [address] [place], [place] [phone] Essential hypertension; Chronic SI joint pain; Chronic [...] Description 07/02/2024 11:00 AM EDT Clinical Support [facility] [address] [place] [address] Azeb Hall RN [address] [place] [address] 07/15/2024 1:00 PM EDT Office Visit [facility] [address] [place] [address] Sariah Vickers ANP [address] [place] [address] 08/04/2024 1:00 PM EDT Office Visit [facility] ADULT DENTAL [address] [place] [address] Nuvia Duarte [address] [place] [address] documented as of this encounter Goals Goal [...] as of this encounter Care Teams Home Health Caregiver Relationship Specialty Start Date End Date Sariah Vickers ANP [address] [place] [address] PCP - General Family Medicine 09/23/19 documented as of this encounter
--- OUTSIDE RECORDS SUMMARY | 2024-04-30 15:28 | XMS_ITS | Encounter Summary ---
Author Organization [employer] Address [address] [facility] 7t [place] [address] Care Team Providers Care Jinriksha Driver Name Role Phone Sariah Vickers Primary Care Provider [phone] Reason for Visit * Reason Comments Med Refill Encounter Details Date Type Department Care Team ([facility] st Contact Info) Description 11/14/2023 Refill [facility] [address] [place] [address] Sariah Vickers ANP [address] [place] [address] Neck pain Social History Tobacco Use Types [...] Description 07/02/2024 11:00 AM EDT Clinical Support [facility] [address] [place] [address] Azeb Hall RN [address] [place] [address] 07/15/2024 1:00 PM EDT Office Visit [facility] [address] [place] [address] Sariah Vickers ANP [address] [place] [address] 08/04/2024 1:00 PM EDT Office Visit [facility] ADULT D[facility] [address] [place] [address] Nuvia Duarte [address] [place] [address] documented as of this encounter Goals Goal [...] documented as of this encounter Care Teams Jinriksha Driver Relationship Specialty Start Date End Date Sariah Vickers ANP [address] [place] [address] PCP - General Family Medicine 09/23/19 documented as of this encounter
--- OUTSIDE RECORDS SUMMARY | 2024-04-30 15:28 | XMS_ITS | Encounter Summary ---
Author Organization [employer] Address 75 [facility] 7t [place] [address] Care Team Providers Care Air Boatswain Name Role Phone Sariah Vickers Primary Care Provider [phone] Reason for Visit * Reason Comments Med Refill Encounter Details Date Type Department Care Team ([facility] st Contact Info) Description 04/06/2024 Refill [facility] MEDICINE [address] [place] [address] Sariah Vickers ANP [address] [place] [address] Severe persistent asthma without complication Social History [...] Description 07/02/2024 11:00 AM EDT Clinical Support [facility] MEDICINE [address] [place] [address] Azeb Hall RN 505 [place] [address] 07/15/2024 1:00 PM EDT Office Visit [facility] MEDICINE [address] [place] [address] Sariah Vickers ANP [address] [place] [address] 08/04/2024 1:00 PM EDT Office Visit [facility] ADULT DENTAL [address] [place] [address] Nuvia Duarte 230 [place] [address] documented as of this encounter Goals Goal Patient Goal Type Associated Problems Recent Progress Patient-Stated? Author Blood Pressure < 140/90 Blood Pressure 136/88(2024 11:28 AM EDT) No Phanis-Gambl ciara, Aida, PharmD Record Your Blood Sugar As Directed General No Piers-Gambl e, Aida, PharmD Hemoglobin A1c < 7 Result Component 6.6( 4 8:44 AM EST) No Phanis-Gambsd eAida, PharmD documented as of this encounter Visit Diagnoses Diagnosis Severe persistent asthma without complication documented in this encounter Additional Health Concerns Assessment Noted Time PHQ-9 Depression Total Score: 12 024 2:58 PM EDT documented as of this encounter Care Teams Air Boatswain Relationship Specialty Start Date End Date Sariah Vickers ANP [address] [place] [address] PCP - General Family Medicine 09/23/19 documented as of this encounter
--- OUTSIDE RECORDS SUMMARY | 2024-04-30 15:28 | XMS_ITS | Encounter Summary ---
Author Organization [employer] Address 75 [facility] 7t [place] [address] Care Team Providers Care Center Line Cutter Operator Name Role Phone Sariah Vickers Primary Care Provider [phone] Reason for Visit * Reason Comments Med Refill Encounter Details Date Type Department Care Team ([facility] st Contact Info) Description 11/24/2023 Refill [facility] MEDICINE [address] [place] [address] Sariah Vickers ANP 230 [place] [address] Vertigo Social History Tobacco Use Types Packs/Day [...] Support [facility] MEDICINE [address] [place] [address] Azeb Hall RN 505 [place] [address] 07/15/2024 1:00 PM EDT Office Visit [facility] MEDICINE [address] [place] [address] Sariah Vickers ANP 230 [place] [address] 08/04/2024 1:00 PM EDT Office Visit [facility] ADULT DENTAL [address] [place] [address] Nuvia Duarte 230 [place] [address] documented as of this encounter Goals Goal Patient Goal Type Associated Problems Recent Progress Patient-Stated? Author Blood Pressure < 140/90 Blood Pressure 136/88(2024 11:28 AM EDT) No Phanis-Gambl Veronica urbinasa, PharmD Record Your [...] documented as of this encounter Care Teams Center Line Cutter Operator Relationship Specialty Start Date End Date Sariah Vickers ANP 230 [place] [address] PCP - General Family Medicine 09/23/19 documented as of this encounter
--- OUTSIDE RECORDS SUMMARY | 2024-04-30 15:28 | XMS_ITS | Encounter Summary ---
Author Organization [employer] Address 75 [facility] 7t [place] [address] Care Team Providers Care Statistical Engineer Name Role Phone Sariah Vickers Primary Care Provider [phone] Reason for Visit * Reason Comments Med Refill Encounter Details Date Type Department Care Team ([facility] st Contact Info) Description 01/06/2024 Refill [facility] CHC MED & PEDS [address] [place] [address] Sariah Vickers ANP 230 [place] [address] Cervicalgia Social History Tobacco Use Types Packs/Day [...] Description 07/02/2024 11:00 AM EDT Clinical Support [facility] MEDICINE [address] [place] [address] Azeb Hall RN 505 [place] [address] 07/15/2024 1:00 PM EDT Office Visit [facility] MEDICINE [address] [place] [address] Sariah Vickers ANP 230 [place] [address] 08/04/2024 1:00 PM EDT Office Visit [facility] ADULT DENTAL [address] [place] [address] Nuvia Duarte 230 [place] [address] documented as of this encounter Goals Goal [...] documented as of this encounter Care Teams Statistical Engineer Relationship Specialty Start Date End Date Sariah Vickers ANP 230 [place] [address] PCP - General Family Medicine 09/23/19 documented as of this encounter
--- OUTSIDE RECORDS SUMMARY | 2024-04-30 15:28 | XMS_ITS | Encounter Summary ---
Author Organization [employer] Address 75 [facility] 7t [place] [address] Care Team Providers Care Assistant Merchandise Manager Name Role Phone Sariah Vickers Primary Care Provider [phone] Encounter Details Date Type Department Care Team (Latest Contact Info) Description 04/29/2024 Travel Social History Tobacco Use Types Packs/Day [...] Description 07/02/2024 11:00 AM EDT Clinical Support [facility] MEDICINE [address] [place] [address] Azeb Hall, MARTIN 505 [place] [address] 07/15/2024 1:00 PM EDT Office Visit [facility] MEDICINE [address] [place] [address] Sariah Vickers ANP 230 [place] [address] 08/04/2024 1:00 PM EDT Office Visit [facility] ADULT DENTAL 230 [place] [address] Nuvia Duarte [address] [place] [address] documented as of this encounter Goals Goal [...] documented as of this encounter Care Teams Assistant Merchandise Manager Relationship Specialty Start Date End Date Sariah Vickers ANP [address] [place] [address] PCP - General Family Medicine 09/23/19 documented as of this encounter
--- OUTSIDE RECORDS SUMMARY | 2024-04-30 15:28 | XMS_ITS | Encounter Summary ---
Author Organization [employer] Address 75 [facility] 7t [place] [address] Care Team Providers Care Aircraft Refueller Name Role Phone Sariah Vickers Primary Care Provider [phone] Reason for Visit * Reason Comments Med Refill Encounter Details Date Type Department Care Team ([facility] st Contact Info) Description 01/06/2024 Refill [facility] CHC MED & PEDS [address] [place] [address] Sariah Vickers ANP 230 [place] [address] Cervicalgia Social History Tobacco Use Types Packs/Day [...] Description 07/02/2024 11:00 AM EDT Clinical Support [facility] MEDICINE [address] [place] [address] Azeb Hall RN 505 [place] [address] 07/15/2024 1:00 PM EDT Office Visit [facility] MEDICINE [address] [place] [address] Sariah Vickers ANP 230 [place] [address] 08/04/2024 1:00 PM EDT Office Visit [facility] ADULT DENTAL [address] [place] [address] Nuvia Duarte 230 [place] [address] documented as of this encounter Goals Goal [...] documented as of this encounter Care Teams Aircraft Refueller Relationship Specialty Start Date End Date Sariah Vickers ANP 230 [place] [address] PCP - General Family Medicine 09/23/19 documented as of this encounter
--- OUTSIDE RECORDS SUMMARY | 2024-04-30 15:28 | XMS_ITS | Encounter Summary ---
Author Organization [employer] Address 75 [facility] 7t [place] [address] Care Team Providers Care Dimpling 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 Name Role Phone Sariah Vickers Primary Care Provider [phone] Encounter Details Date Type Department Care Team ([facility] Contact Info) Description 04/23/2024 Telephone C [facility] MED & PEDS 505 [place], [place] [phone] Azeb Hall RN 505 [place], [place] Social History Tobacco Use Types Packs/Day [...] Fyi. Pt 2 pills short at todays ASSOCIATE CONSULTING ENGINEER appt. States has been in a lot of pain this month. Reminded pt of the ASSOCIATE CONSULTING ENGINEER Agreement rules and to take med only as prescribed, pt verbalized understanding. F/u withyou 07/15/24. What ASSOCIATE CONSULTING ENGINEER Tier would you like this patient to be? Tier 1 = HIGH RISK, Monthly ASSOCIATE CONSULTING ENGINEER visits Tier 2 = MODerate RISK, Q3 Month visits Tier 3 = LOW RISK = Q4-6 month visits documented in this encounter Plan of Treatment Upcoming Encounters Date Type Department Care Team (Late st Contact Info) Description 07/02/2024 11:00 AM EDT Clinical Support [facility] MEDICINE 230 [place] [address] Azeb Hall RN 505 [place] [address] 07/15/2024 1:00 PM EDT Office Visit [facility] MEDICINE 230 [place] [address] Sariah Vickers ANP 230 [place] [address] 08/04/2024 1:00 PM EDT Office Visit [facility] ADULT DENTAL 230 [place] [address] Nuvia Duarte 230 [place] [address] documented as of this encounter Goals Goal [...] documented as of this encounter Care Teams Dimpling 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 Relationship Specialty Start Date End Date Sariah Vickers ANP 230 [place] [address] PCP - General Family Medicine 09/23/19 documented as of this encounter
--- OUTSIDE RECORDS SUMMARY | 2024-04-30 15:28 | XMS_ITS | Encounter Summary ---
Author Organization [employer] Address 75 [facility] 7t [place] [address] Care Team Providers Care Casket Trimmer Name Role Phone Sariah Vickers Primary Care Provider [phone] Reason for Visit * Reason Comments Med Refill Encounter Details Date Type Department Care Team ([facility] st Contact Info) Description 01/04/2024 Refill [facility] CHC MED & PEDS [address] [place] [address] Sariah Vickers ANP 230 [place] [address] Cervicalgia Social History Tobacco Use Types Packs/Day [...] Description 07/02/2024 11:00 AM EDT Clinical Support [facility] MEDICINE [address] [place] [address] Azeb Hall RN 505 [place] [address] 07/15/2024 1:00 PM EDT Office Visit [facility] MEDICINE [address] [place] [address] Sariah Vickers ANP 230 [place] [address] 08/04/2024 1:00 PM EDT Office Visit [facility] ADULT DENTAL [address] [place] [address] Nuvia Duarte 230 [place] [address] documented as of this encounter Goals Goal [...] documented as of this encounter Care Teams Casket Trimmer Relationship Specialty Start Date End Date Sariah Vickers ANP 230 [place] [address] PCP - General Family Medicine 09/23/19 documented as of this encounter
--- OUTSIDE RECORDS SUMMARY | 2024-04-30 15:28 | XMS_ITS | Encounter Summary ---
Author Organization [facility] Address 75 [facility] 7t [place] [address] Care Team Providers Care Process Trainer Name Role Phone Sariah Vickers Primary Care Provider [phone] Reason for Visit * Reason Onset Date Comments Nurse Triage 04/06/2024 Encounter Details Date Type Department Care Team ([facility] st Contact Info) Description 04/06/2024 Telephone [facility] MEDICINE 230 [place] [address] Sariah Vickers ANP 230 [place] [address] Nurse Triage Social History Tobacco Use Types [...] by Endo and refer to CDTM with [facility] pharmacist to continue DM management instead of Endo. Pt missed first appt in March. R/s for April, pt has upcoming appt with PCP. PCP out of office this week. Pt advised to follow up with Endo or to seek [facility] for evaluation of sx this week .Reviewed [facility] operating hours and that wait times [...] requesting Ozempic The caller accepted this outcome. BULGARIAN SPEAKER documented in this encounter Plan of Treatment Upcoming Encounters Date Type Department Care Team (Late st Contact Info) Description 07/02/2024 11:00 AM EDT Clinical Support [facility] MEDICINE [address] [place] [address] Azeb Hall RN 505 [place] [address] 07/15/2024 1:00 PM EDT Office Visit [facility] MEDICINE [address] [place] [address] Sariah Vickers ANP 230 [place] [address] 08/04/2024 1:00 PM EDT Office Visit [facility] ADULT DENTAL 230 [place] [address] Nuvia Duarte 230 [place] [address] documented as of this encounter Goals Goal [...] documented as of this encounter Care Teams Process Trainer Relationship Specialty Start Date End Date Sariah Vickers ANP [address] [place] [address] PCP - General Family Medicine 09/23/19 documented as of this encounter
--- OUTSIDE RECORDS SUMMARY | 2024-04-30 15:28 | XMS_ITS | Encounter Summary ---
Author Organization [employer] Address 75 [facility] 7t [place] [address] Care Team Providers Care Oyster Fisherman Name Role Phone Sariah Vickers Primary Care Provider [phone] Reason for Visit * Reason Comments Med Refill Encounter Details Date Type Department Care Team ([facility] st Contact Info) Description 04/26/2024 Refill [facility] CHC MED & PEDS [address] [place] [address] Sariah Vickers ANP 230 [place] [address] Cervicalgia Social History Tobacco Use Types Packs/Day [...] Description 07/02/2024 11:00 AM EDT Clinical Support [facility] MEDICINE [address] [place] [address] Azeb Hall RN 505 [place] [address] 07/15/2024 1:00 PM EDT Office Visit [facility] MEDICINE [address] [place] [address] Sariah Vickers ANP 230 [place] [address] 08/04/2024 1:00 PM EDT Office Visit [facility] ADULT DENTAL [address] [place] [address] Nuvia Duarte 230 [place] [address] documented as of this encounter Goals Goal [...] documented as of this encounter Care Teams Oyster Fisherman Relationship Specialty Start Date End Date Sariah Vickers ANP [address] [place] [address] PCP - General Family Medicine 09/23/19 documented as of this encounter
--- OUTSIDE RECORDS SUMMARY | 2024-04-30 15:28 | XMS_ITS | Encounter Summary ---
Author Organization [employer] Address [address] [facility] [address] 7t [place] [address] Care Team Providers Care Cup 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 Name Role Phone Sariah Vickers Primary Care Provider [phone] Reason for Visit * Reason Comments controlled substance treatment Encounter Details Date Type Department Care Team (Latest Contact Info) Description 04/23/2024 11:30 AM EST Clinical Support [facility] MEDICINE 230 [place] [address] Azeb Hall RN 505 [place], [place] [phone] Long-term current use of opiate analgesic Social [...] 11:30 AM EST S: Pt here for TIME STUDY TECHNICIAN RV. DAYA Hernandez interpreting. Prescribed Tramadol 50mg PO q12h PRN. Patient 2 pills short at todays visit. States has been in a lot of pain this month and took extra pills. Reminded ptof the TIME STUDY TECHNICIAN Agreement rules and to take med only as prescribed, pt verbalized understanding. PCP notified. BZO from an outside provider. Pt denies nicotine/ETOH/street drug/marijuana. Currently rates pain a 8/10 and states medication is usually 100% effective at alleviating pain when taken. Chronic pain group pamphlet given, patient not interested at this time. No other questions/ concerns at thistime. O: PHOTOCOPYING EQUIPMENT MECHANIC verified today. PHOTOCOPYING EQUIPMENT MECHANIC checked 04/23/24. Pill count performed. Pt has 15 pills at this time, 17 expected. (See above). UTOX (-) all tested substances, as expected. A: TIME STUDY TECHNICIAN Contract Revisit: Opioid dependence related to chronic pain. P: Patient to continue taking medication only as prescribed; Next TIME STUDY TECHNICIAN RV appointment scheduled for 07/02/24 @ 11a @[facility]. F/u with PCP 07/15/24. F/U sooner PRN. Appointment reminder given. Patient verbalized understanding and agreed to plan. documented in this encounter Plan of Treatment Upcoming Encounters Date Type Department Care Team (Late st Contact Info) Description 07/02/2024 11:00 AM EDT Clinical Support [facility] MEDICINE [address] [place] [address] Azeb Hall RN 505 [place] [address] 07/15/2024 1:00 PM EDT Office Visit [facility] MEDICINE [address] [place] [address] Sariah Vickers ANP 230 [place] [address] 08/04/2024 1:00 PM EDT Office Visit [facility] ADULT DENTAL [address] [place] [address] Nuvia Duarte [address] [place] [address] documented as of this encounter Goals Goal Patient Goal Type Associated Problems Recent Progress Patient-Stated? Author Blood Pressure < 140/90 Blood Pressure 136/88(2024 11:28 AM EDT) No Aida Ragland, PharmBear Record Your Blood [...] - 04/23/2024 10:56 AM EST .UTOX cup Lot#[id number] Exp. 10/06/25 Internal Pass Control negative AMP, BAR, BUP, BZO, RENETTA, FTY, MDMA, MET, MOP, MTD, OXY, PCP, TCA, THC. us Sariah PAGE POINT OF CARE TEST ENTER/EDIT OR DERABLES Edited Result - Final documented in this encounter Visit Diagnoses Diagnosis Long-term current use of opiate analgesic Encounter for long-term (current) use of other medications documented in this encounter Additional Health Concerns Assessment Noted Time PHQ-9 Depression Total Score: 12 024 2:58 PM EDT documented as of this encounter Care Teams Cup 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 Relationship Specialty Start Date End Date Sariah Vickers, KAYLEE [address] [place] [address] PCP - General Family Medicine 09/23/19 documented as of this encounter
--- OUTSIDE RECORDS SUMMARY | 2024-04-30 15:28 | XMS_ITS | Encounter Summary ---
Author Organization [facility] Address 75 [facility] 7t [place] [address] Care Team Providers Care Imagery Analyst Name Role Phone Sariah Vickers Primary Care Provider [phone] Reason for Visit * Reason Onset Date Comments Referral 04/29/2024 Encounter Details Date Type Department Care Team ([facility] st Contact Info) Description 04/29/2024 Telephone [facility] MEDICINE [address] [place] [address] Sariah Vickers ANP 230 [place] [address] Referral Social History Tobacco Use Types Packs/Day [...] encounter Miscellaneous Notes * Telephone Encounter - Calli Jensen - 04/29/2024 12:14 PM EDT Patient walked in said she gets allergy injections from her messenger office at [facility]. Patient was advised messenger office will be out of practice as of 09/2024. Patient wants new referral to different messenger office. documented in this encounter Plan of Treatment Upcoming Encounters Date Type Department Care Team (Late st Contact Info) Description 07/02/2024 11:00 AM EDT Clinical Support [facility] MEDICINE [address] [place] [address] Azeb Hall, MARTIN 505 [place] [address] 07/15/2024 1:00 PM EDT Office Visit [facility] MEDICINE [address] [place] [address] Sariah Vickers ANP 230 [place] [address] 08/04/2024 1:00 PM EDT Office Visit [facility] ADULT DENTAL [address] [place] [address] Nuvia Duarte [address] [place] [address] documented as of this encounter Goals Goal Patient Goal Type Associated Problems Recent Progress Patient-Stated? Author Blood Pressure < 140/90 Blood Pressure 136/88(2024 11:28 AM EDT) No Phanis-Dileepl Aida urbina, PharmD Record Your Blood Sugar As Directed General No Phanis-Gambl Aida urbina, PharmD Hemoglobin A1c < 7 Result Component 6.6( 4 8:44 AM EST) No Phanis-Aida Medina PharmD documented as of this encounter Visit Diagnoses Not on filedocumented in this encounter Additional Health Concerns Assessment Noted Time PHQ-9 Depression Total Score: 12 024 2:58 PM EDT documented as of this encounter Care Teams Imagery Analyst Relationship Specialty Start Date End Date Sariah Vickers ANP [address] [place] [address] PCP - General Family Medicine 09/23/19 documented as of this encounter
--- OUTSIDE RECORDS SUMMARY | 2024-04-30 15:28 | XMS_ITS | Encounter Summary ---
Author Organization [employer] Address 75 [facility] 7t [place] [address] Care Team Providers Care Stable Hand Name Role Phone Sariah Vickers Primary Care Provider [phone] Reason for Visit * Reason Comments Med Refill Encounter Details Date Type Department Care Team ([facility] st Contact Info) Description 10/24/2023 Refill [facility] MEDICINE 230 [place] [address] Sariah Vickers ANP [address] [place] [address] Neck pain Social History Tobacco Use Types [...] 11:00 AM EDT Clinical Support [facility] MEDICINE [address] [place] [address] Azeb Hall RN 505 [place] [address] 07/15/2024 1:00 PM EDT Office Visit [facility] MEDICINE [address] [place] [address] Sariah Vickers ANP [address] [place] [address] 08/04/2024 1:00 PM EDT Office Visit [facility] ADULT DENTAL [address] [place] [address] Nuvia Duarte 230 [place] [address] documented as of this encounter Goals Goal [...] documented as of this encounter Care Teams Stable Hand Relationship Specialty Start Date End Date Sariah Vickers ANP [address] [place] [address] PCP - General Family Medicine 09/23/19 documented as of this encounter
--- OUTSIDE RECORDS SUMMARY | 2024-04-30 15:28 | XMS_ITS | Encounter Summary ---
Author Organization [employer] Address [address] [facility] [address] 7t [place] [address] Care Team Providers Care Plumbing Instructor Name Role Phone Sariah Vickers Primary Care Provider [phone] Reason for Visit * Reason Comments Med Refill Patient walked in [facility] pharmacy hasn't finished her Medbox due to missing refill for medication Gabapetin . Encounter Details Date Type Department Care Team ([facility] st Contact Info) Description 10/03/2023 Refill [facility] 230 [place], [place] [phone] Sariah Vickers ANP 230 [place] [address] Chronic SI joint pain Social History Tobacco [...] Description 07/02/2024 11:00 AM EDT Clinical Support [facility] MEDICINE [address] [place] [address] Azeb Hall RN 505 [place] [address] 07/15/2024 1:00 PM EDT Office Visit [facility] MEDICINE [address] [place] [address] Sariah Vickers ANP 230 [place] [address] 08/04/2024 1:00 PM EDT Office Visit [facility] ADULT DENTAL [address] [place] [address] Nuvia Duarte [address] [place] [address] documented as of this encounter Goals Goal [...] documented as of this encounter Care Teams Plumbing Instructor Relationship Specialty Start Date End Date Sariah Vickers ANP [address] [place] [address] PCP - General Family Medicine 09/23/19 documented as of this encounter
--- OUTSIDE RECORDS SUMMARY | 2024-04-30 15:28 | XMS_ITS | Encounter Summary ---
Author Organization [employer] Address 75 [facility] 7t [place] [address] Care Team Providers Care Horizontal Boring Mill Operator Name Role Phone Sariah Vickers Primary Care Provider [phone] Reason for Visit * Reason Onset Date Comments Med Refill 09/18/2023 Encounter Details Date Type Department Care Team (Late st Contact Info) Description 09/18/2023 Telephone [facility] [address] [place] [address] Sariah Vickers ANP 230 [place] [address] Med Refill Social History Tobacco Use Types [...] Tramadol To be sent to: [facility] - [place], [place] - [address] [place] [address] documented in this encounter Plan of Treatment Upcoming Encounters Date Type Department Care Team ([facility] st Contact Info) Description 07/02/2024 11:00 AM EDT Clinical Support [facility] [address] [place] [address] Azeb Hall RN 505 [place] [address] 07/15/2024 1:00 PM EDT Office Visit [facility] [address] [place] [address] Sariah Vickers ANP 230 [place] [address] 08/04/2024 1:00 PM EDT Office Visit [facility] ADULT DENTAL [address] [place] [address] Nuvia Duarte [address] [place] [address] documented as of this encounter Goals Goal [...] documented as of this encounter Care Teams Horizontal Boring Mill Operator Relationship Specialty Start Date End Date Sariah Vickers ANP [address] [place] [address] PCP - General Family Medicine 09/23/19 documented as of this encounter
--- OUTSIDE RECORDS SUMMARY | 2024-04-30 15:28 | XMS_ITS | Encounter Summary ---
Author Organization [employer] Address 75 [facility] 7t [place] [address] Care Team Providers Care Incident Response Consultant Name Role Phone Sariah Vickers Primary Care Provider [phone] Reason for Visit * Reason Comments Med Refill Encounter Details Date Type Department Care Team ([facility] st Contact Info) Description 10/17/2023 Refill [facility] [address] [place] [address] Sariah Vickers ANP 230 [place] [address] Neck pain Social History Tobacco Use Types [...] Description 07/02/2024 11:00 AM EDT Clinical Support [facility] [address] [place] [address] Azeb Hall RN 505 [place] [address] 07/15/2024 1:00 PM EDT Office Visit [facility] [address] [place] [address] Sariah Vickers ANP [address] [place] [address] 08/04/2024 1:00 PM EDT Office Visit [facility] ADULT DENTAL [address] [place] [address] Nuvia Duarte 230 [place] [address] documented as of this encounter Goals Goal [...] documented as of this encounter Care Teams Incident Response Consultant Relationship Specialty Start Date End Date Sariah Vickers ANP [address] [place] [address] PCP - General Family Medicine 09/23/19 documented as of this encounter
--- OUTSIDE RECORDS SUMMARY | 2024-04-30 15:28 | XMS_ITS | Encounter Summary ---
Author Organization [employer] Address 75 [facility] 7t [place] [address] Care Team Providers Care Rn Prior Authorization Name Role Phone Sariah Vickers Primary Care Provider [phone] Reason for Visit * Reason Onset Date Comments Med Refill 01/09/2024 Encounter Details Date Type Department Care Team ([facility] st Contact Info) Description 01/09/2024 Telephone [facility] 230 [place] [address] Sariah Vickers ANP [address] [place] [address] Med Refill Social History Tobacco Use Types [...] Description 07/02/2024 11:00 AM EDT Clinical Support [facility] [address] [place] [address] Azeb Hall, MARTIN [address] [place] [address] 07/15/2024 1:00 PM EDT Office Visit [facility] [address] [place] [address] Sariah Vickers ANP [address] [place] [address] 08/04/2024 1:00 PM EDT Office Visit [facility] [address] [place] [address] Nuvia Duarte 230 [place] [address] documented as of this encounter Goals Goal Patient Goal Type Associated Problems Recent Progress Patient-Stated? Author Blood Pressure < 140/90 Blood Pressure 136/88(2024 11:28 AM EDT) No Phanis-Aida Medina, PharmD Record Your Blood [...] as of this encounter Care Teams Rn Prior Authorization Relationship Specialty Start Date End Date Sariah Vickers ANP [address] [place] [address] PCP - General Family Medicine 09/23/19 documented as of this encounter
--- OUTSIDE RECORDS SUMMARY | 2024-04-30 15:28 | XMS_ITS | Encounter Summary ---
Author Organization [employer] Address 75 [facility] 7t [place] [address] Care Team Providers Care Pumping Supervisor Name Role Phone Sariah Vickers Primary Care Provider [phone] Reason for Visit * Reason Comments Med Refill Encounter Details Date Type Department Care Team ([facility] st Contact Info) Description 04/02/2024 Refill [facility] [address] [place] [address] Sariah Vickers ANP 230 [place] [address] Neck pain Social History Tobacco Use Types [...] 07/02/2024 11:00 AM EDT Clinical Support [facility] [address] [place] [address] Azeb Hall RN 505 [place] [address] 07/15/2024 1:00 PM EDT Office Visit [facility] [address] [place] [address] Sariah Vickers ANP 230 [place] [address] 08/04/2024 1:00 PM EDT Office Visit [facility] ADULT DENTAL [address] [place] [address] Nuvia Duarte 230 [place] [address] documented as of this encounter Goals Goal [...] documented as of this encounter Care Teams Pumping Supervisor Relationship Specialty Start Date End Date Sariah Vickers ANP 230 [place] [address] PCP - General Family Medicine 09/23/19 documented as of this encounter
--- OUTSIDE RECORDS SUMMARY | 2024-04-30 15:28 | XMS_ITS | Encounter Summary ---
Author Organization [employer] Address 75 [facility] 7t [place] [address] Care Team Providers Care Lens Edge Grinder Machine Name Role Phone Sariah Vickers Primary Care Provider [phone] Reason for Visit * Reason Comments Med Refill Encounter Details Date Type Department Care Team ([facility] st Contact Info) Description 11/26/2023 Refill [facility] [address] [place] [address] Sariah Vickers ANP 230 [place] [address] Vertigo Social History Tobacco Use Types Packs/Day [...] Description 07/02/2024 11:00 AM EDT Clinical Support [facility] [address] [place] [address] Azeb Hall RN 505 [place] [address] 07/15/2024 1:00 PM EDT Office Visit [facility] [address] [place] [address] Sariah Vickers ANP 230 [place] [address] 08/04/2024 1:00 PM EDT Office Visit [facility] ADULT DENTAL [address] [place] [address] Nuvia Duarte 230 [place] [address] documented as of this encounter Goals Goal [...] documented as of this encounter Care Teams Lens Edge Grinder Machine Relationship Specialty Start Date End Date Sariah Vickers ANP 230 [place] [address] PCP - General Family Medicine 09/23/19 documented as of this encounter
--- OUTSIDE RECORDS SUMMARY | 2024-04-30 15:29 | XMS_ITS | Encounter Summary ---
Author Organization [employer] Address [address] [facility] [address] 7t [place] [address] Care Team Providers Care P 3 Armament/Ordnance Ima Technician Name Role Phone Sariah Vickers Primary Care Provider [phone] Reason for Visit * Reason Comments Med Refill Encounter Details Date Type Department Care Team ([facility] st Contact Info) Description 07/10/2023 Refill [facility] 230 [place] [address] Sariah Vickers ANP 230 [place] [address] Chronic SI joint pain Social History Tobacco [...] 07/02/2024 11:00 AM EDT Clinical Support [facility] [address] [place] [address] Azeb Hall RN 505 [place] [address] 07/15/2024 1:00 PM EDT Office Visit [facility] [address] [place] [address] Sariah Vickers ANP 230 [place] [address] 08/04/2024 1:00 PM EDT Office Visit [facility] [address] [place] [address] Nuvia Duarte 230 [place] [address] documented as of this encounter Goals Goal Patient Goal Type Associated Problems Recent Progress Patient-Stated? Author Blood Pressure < 140/90 Blood Pressure 136/88(2024 11:28 AM EDT) No Phanis-Veronica Medinasa, PharmD Record Your Blood Sugar As Directed General No Phanis-Gambsd urbina, Aiad, PharmD Hemoglobin A1c < 7 Result Component 6.6( 4 8:44 AM EST) No Aida Ragland, PharmD documented as of this encounter Visit Diagnoses Diagnosis Chronic SI joint pain Disorders of sacrum documented in this encounter Additional Health Concerns Assessment Noted Time PHQ-9 Depression Total Score: 2 06/23/19 24 2:10 PM EDT documented as of this encounter Care Teams P 3 Armament/Ordnance Ima Technician Relationship Specialty Start Date End Date Sariah Vickers ANP 230 [place] [address] PCP - General Family Medicine 09/23/19 documented as of this encounter
--- OUTSIDE RECORDS SUMMARY | 2024-04-30 15:29 | XMS_ITS | Encounter Summary ---
Author Organization [employer] [facility] Address 75 [facility] 7t [place] [address] Care Team Providers Care Director Product Safety Name Role Phone Sariah Vickers Primary Care Provider [phone] Reason for Visit * Reason Onset Date Comments Nurse Triage 01/14/2023 Encounter Details Date Type Department Care Team ([facility] st Contact Info) Description 01/14/[address] 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 Pt. States that she has been having a fire feeling in her legs. Its like A burning that goes down her legs . Pt. Unsure if it because of her Diabetes. Pt. Went to [facility] ED for pain on her left side [...] 10am. Will send note to clinical home care attendant to have note put in chart . [...] Severe pain now, pt was seen at [facility] on 01/13 for pain in leg. Pt is still symptomatic The caller accepted this outcome Please contact pt at [phone] (inverted block operator needed) documented in this encounter Plan of Treatment Upcoming Encounters Date Type Department Care Team (Late st Contact Info) Description 07/02/2024 11:00 AM EDT Clinical Support [facility] MEDICINE [address] [place] [address] Azeb Hall, RN 505 [place] [address] 07/15/2024 1:00 PM EDT Office Visit [facility] MED[facility]INE [address] [place] [address] Sariah Vickers ANP 230 [place] [address] 08/04/2024 1:00 PM EDT Office Visit [facility] ADULT DENTAL 230 [place] [address] Nuvia Duarte 230 [place] [address] documented as of this encounter Goals Goal [...] on filedocumented in this encounter Care Teams Director Product Safety Relationship Specialty Start Date End Date Sariah Vickers ANP [address] [place] [address] PCP - General Family Medicine 09/23/19 documented as of this encounter
--- OUTSIDE RECORDS SUMMARY | 2024-04-30 15:29 | XMS_ITS | Encounter Summary ---
Author Organization [employer] [facility] Address 75 [facility] 7t [place] [address] Care Team Providers Care Marketing Planning Manager Name Role Phone Sariah Vickers Primary Care Provider [phone] Reason for Visit * Reason Onset Date Comments Med Refill 03/04/2023 Encounter Details Date Type Department Care Team ([facility] st Contact Info) Description 03/04/2023 Telephone [facility] MED[facility] 230 [place] [address] Sariah Vickers ANP 230 [place] [address] Med Refill Social History Tobacco Use Types [...] 50 MG tablet To be sent to: [facility] - [place], [place] - [address] [place] [address] documented in this encounter Plan of Treatment Upcoming Encounters Date Type Department Care Team (Late st Contact Info) Description 07/02/2024 11:00 AM EDT Clinical Support [facility] [address] [place] [address] Azeb Hall RN 505 [place] [address] 07/15/2024 1:00 PM EDT Office Visit [facility] 230 [place] [address] Sariah Vickers ANP 230 [place] [address] 08/04/2024 1:00 PM EDT Office Visit [facility] ADULT DENTAL 230 [place] [address] Nuvia Duarte 230 [place] [address] documented as of this encounter Goals Goal [...] on filedocumented in this encounter Care Teams Marketing Planning Manager Relationship Specialty Start Date End Date Sariah Vickers ANP [address] [place] [address] PCP - General Family Medicine 09/23/19 documented as of this encounter
--- OUTSIDE RECORDS SUMMARY | 2024-04-30 15:29 | XMS_ITS | Clinical Summary ---
Author Organization [facility] Address [address] [place] [address] Phone Care Team Providers Care Park Guard Name Role Phone Sariah Vickers NP Primary Care Provider [phone] Social History Tobacco Use Types Packs/Day Years [...] age to complete this topic Care Teams Park Guard Relationship Specialty Start Date End Date Sariah Vickers NP [address] [place] [phone] PCP - General 12/03/23
--- OUTSIDE RECORDS SUMMARY | 2024-04-30 15:29 | XMS_ITS | Encounter Summary ---
Author Organization [employer] Address 75 [facility] 7t [place] [address] Care Team Providers Care Cardiology Technologist Name Role Phone Sariah Vickers Primary Care Provider Reason for Visit * Reason Comments Med Refill Encounter Details Date Type Department Care Team ([facility] st Contact Info) Description 03/04/2023 Refill [facility] 230 [place], [place] [phone] Brittney Nava MD 230 [place] [address] Social History Tobacco Use Types Packs/Day Years [...] Description 07/02/2024 11:00 AM EDT Clinical Support [facility] MED[facility]INE [address] [place] [address] Azeb Hall RN 505 [place] [address] 07/15/2024 1:00 PM EDT Office Visit [facility] [address] [place] [address] Sariah Vickers ANP [address] [place] [address] 08/04/2024 1:00 PM EDT Office Visit [facility] ADULT DENTAL [address] [place] [address] Nuvia Duarte 230 [place] [address] documented as of this encounter Goals Goal [...] on filedocumented in this encounter Care Teams Cardiology Technologist Relationship Specialty Start Date End Date Sariah Vickers ANP [address] [place] [address] PCP - General Family Medicine 09/23/19 documented as of this encounter
--- OUTSIDE RECORDS SUMMARY | 2024-04-30 15:29 | XMS_ITS | Encounter Summary ---
Author Organization [employer] Address 75 [facility] 7t [place] [address] Care Team Providers Care Yarder Operator Name Role Phone Anthony Ruiz Primary Care Provider [phone] Reason for Visit * Reason Comments lung pain Shortness of Breath Encounter Details Date Type Department Care Team ([facility] st Contact Info) Description 04/20/2024 11:00 AM EST Office Visit [facility] 230 [place] [address] Chava Presley MD 230 [place] [address] Posterior chest pain (Primary Dx); Asthma-COPD overlap [...] Nuvia Ho is a 63 y.o. female. 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 HPI Nuvia had onset 6-7 days ago of knife-like and pressure pain in right posterior chest, worse with inspiration, movements of torso and right UE. Has associated SOB. Has associated cough, wheezing at night, occasional chills. No fever or hemoptysis. Had neg rapid covid and flu tests at [facility] 04/15/2024. Tylenol helps a little. Using Duoneb, Singulair, Fluticasone-Salmeterol 250-50 MCG/ACT aerosol powder Followed by Operational Review Sergeant Dr. Preciado at [facility]. Lives with son. Former smoker. Not employed. [...] Description 07/02/2024 11:00 AM EDT Clinical Support [facility] [address] [place] [address] Azeb Hall RN 505 [place] [address] 07/15/2024 1:00 PM EDT Office Visit [facility] [address] [place] [address] Anthony Ruiz ANP 230 [place] [address] 08/04/2024 1:00 PM EDT Office Visit [facility] ADULT DENTAL 230 [place] [address] Nuvia Duarte 230 [place] [address] Scheduled Orders Name Type Priority Associated Diagnoses Orde r Schedule D-Dimer, Quantitative Lab Routine Posterior chest pain Expected: 04/20/2024 (Approximate), Expires: 04/20/2025 documented as of this encounter Goals Goal Patient Goal Type Associated Problems Recent Progress Patient-Stated? Author Blood Pressure < 140/90 Blood Pressure 136/88(2024 11:28 AM EDT) No Phanis-Gambl e, Aida, PharmD Record Your Blood Sugar As Directed General No Phanis-Gambl eVeronicasa, PharmD Hemoglobin A1c < 7 Result Component 6.6( 8:44 AM EST) No Piers-Gambl e, Aida, PharmD documented as of this encounter Procedures Procedure Name Priority Date/Time Associated Diagnosis Comments XR CHEST 2 VIEWS Routine 04/20/2024 1:05 PM EST Posterior chest pain documented in this encounter Results * XR Chest 2 Views (04/20/2024 1:05 PM EST) Anatomical Region Laterality Modality Chest Radiographic Griselda ging 04/20/2024 1:05 PM EST Narrative 04/21/2024 9:57 AM EST ? [facility] ?[address] ?[place] [address] ?XRay Report ? Signed ? Patient: Nuvia Fay ?MR ?? #: [id number] ? : 1960 ?Acct:[id number] ? Age/Sex: 63 / F ?ADM Date: 04/20/24 ? Loc: HO.XRAY ? Attending Dr: Chava Presley MD ? Ordering Physician: CHAVA PRESLEY MD ?? Date of Service: 04/20/24 ?? Procedure(s): XR chest 2V ?? Accession Number(s): [id number] ? cc: CHAVA PRESLEY MD; ANTHONY RUIZ [...] DD/ 1305 ? TD/TT: 04/20/24 1310 ? Reproduction Production Manager: NANCY ? Procedure Note Dontam, Vinicius - 04/21/[address] [address] XRay Report Signed Patient: Nuvia Fay EMR #: [id number] : 1960cct:[id number] Age/Sex: 63 / FADM Date: 04/20/24 Loc: [facility] Attending Dr: Chava Presley MD Ordering Physician: CHAVA PRESLEY MD Date of Service: 04/20/24 Procedure(s): XR chest 2V Accession Number(s): [id number] cc: CHAVA PRESLEY MD; ANTHONY RUIZ NP [...] 04/21/24 0954 DD/ 1305 TD/TT: 04/20/24 1310 Reproduction Production Manager: NANCY Chava Presley MD IMG XR PROCEDURES Edited Result - Final documented in this encounter Visit Diagnoses Diagnosis Posterior chest pain- Primary Asthma-COPD overlap syndrome (CMS/HCC) Neck pain Cervicalgia documented in this encounter Additional Health Concerns Assessment Noted Time PHQ-9 Depression Total Score: 12 09/30/2 024 2:58 PM EDT documented as of this encounter Care Teams Yarder Operator Relationship Specialty Start Date End Date Anthony Ruiz ANP 230 [place] [address] PCP - General Family Medicine 09/23/19 documented as of this encounter
--- OUTSIDE RECORDS SUMMARY | 2024-04-30 15:29 | XMS_ITS | Encounter Summary ---
Author Organization [employer] Address [address] [facility] [address] 7t [place] [address] Care Team Providers Care Terrazzo Roller Name Role Phone Sariah Vickers Primary Care Provider [phone] Encounter Details Date Type Department Care Team (Late st Contact Info) Description 04/20/2024 Orders Only [facility] 230 [place], [place] [phone] Chava Presley MD [address] [place], [place] [phone] Social History Tobacco Use Types Packs/Day Years [...] 11:00 AM EDT Clinical Support [facility] [address] [place] [address] Azeb Hall, MARTIN 505 [place] [address] 07/15/2024 1:00 PM EDT Office Visit [facility] [address] [place] [address] Sariah Vickers ANP 230 [place] [address] 08/04/2024 1:00 PM EDT Office Visit [facility] ADULT DENTAL [address] [place] [address] Nuvia Duarte 230 [place] [address] documented as of this encounter Goals Goal Patient Goal Type Associated Problems Recent Progress Patient-Stated? Author Blood Pressure < 140/90 Blood Pressure 136/88(2024 11:28 AM EDT) No Phanis-Gambl Veronica urbinasa, PharmD Record Your Blood Sugar As Directed General No Phanis-Gambl Veronica urbinasa, PharmD Hemoglobin A1c < 7 Result Component 6.6( 8:44 AM EST) No Phanis-Gambl e Aida, PharmD documented as of this encounter Procedures Procedure Name Priority Date/Time Associated Diagnosis Comments D DIMER HIGH SENSITIVITY Routine 04/20/2024 1:21 PM EST documented in this encounter Results * D Dimer High Sensitivity (04/20/2024 1:21 PM EST) D Dimer High Sensitivity 218 NG/ML [facility] Comment:D-DIMER HS REFERENCE RANGENote: Our [...] MD LAB BLOOD ORDERABLES Final Resul t [facility] [address] [place] [address] [phone] documented in this encounter Visit Diagnoses Not on filedocumented in this encounter Additional Health Concerns Assessment Noted Time PHQ-9 Depression Total Score: 12 024 2:58 PM EDT documented as of this encounter Care Teams Terrazzo Roller Relationship Specialty Start Date End Date Sariah Vickers ANP [address] [place] [address] PCP - General Family Medicine 09/23/19 documented as of this encounter
--- OUTSIDE RECORDS SUMMARY | 2024-04-30 15:29 | XMS_ITS | Encounter Summary ---
Author Organization [employer] Address 75 [facility] 7t [place] [address] Care Team Providers Care Film Maker Name Role Phone Sariah Vickers Primary Care Provider [phone] Reason for Visit * Reason Comments Med Refill Encounter Details Date Type Department Care Team ([facility] st Contact Info) Description 05/09/2023 Refill [facility] [address] [place] [address] Sariah Vickers ANP [address] [place] [address] High cholesterol Social History Tobacco Use Types [...] 11:00 AM EDT Clinical Support [facility] MED[facility] [address] [place] [address] Azeb Hall RN 505 [place] [address] 07/15/2024 1:00 PM EDT Office Visit [facility] MED[facility] [address] [place] [address] Sariah Vickers ANP 230 [place] [address] 08/04/2024 1:00 PM EDT Office Visit [facility] ADULT DENTAL [address] [place] [address] Felicia, Nuvia 230 [place] [address] documented as of this encounter Goals Goal [...] hypercholesterolemia documented in this encounter Care Teams Film Maker Relationship Specialty Start Date End Date Sariah Vickers ANP [address] [place] [address] PCP - General Family Medicine 09/23/19 documented as of this encounter
--- OUTSIDE RECORDS SUMMARY | 2024-04-30 15:29 | XMS_ITS | Encounter Summary ---
Author Organization [employer] [facility] Address [address] [place] [address] 7t [place] [address] Care Team Providers Care Flight Line Mechanic Name Role Phone Sariah Vickers Primary Care Provider [phone] Reason for Visit * Reason Onset Date Comments Referral 05/17/2022 Encounter Details Date Type Department Care Team ([facility] st Contact Info) Description 05/17/2022 Telephone [facility] 230 [place] [address] Sariah Vickers ANP 230 [place] [address] Referral Social History Tobacco Use Types Packs/Day [...] guide to vertigo. Please contact pt at [phone] documented in this encounter Plan of Treatment Upcoming Encounters Date Type Department Care Team ([facility] st Contact Info) Description 07/02/2024 11:00 AM EDT Clinical Support [facility] [address] [place] [address] Azeb Hall, MARTIN 505 [place] [address] 07/15/2024 1:00 PM EDT Office Visit [facility] [address] [place] [address] Sariah Vickers ANP 230 [place] [address] 08/04/2024 1:00 PM EDT Office Visit [facility] 230 [place] [address] Nuvia Duarte 230 [place] [address] documented as of this encounter Visit Diagnoses Not on filedocumented in this encounter Care Teams Flight Line Mechanic Relationship Specialty Start Date End Date Sariah Vickers ANP [address] [place] [address] PCP - General Family Medicine 09/23/19 documented as of this encounter
--- OUTSIDE RECORDS SUMMARY | 2024-04-30 15:29 | XMS_ITS | Encounter Summary ---
Author Organization [employer] Address 75 [facility] 7t [place] [address] Care Team Providers Care Dry Cleaning Supervisor Name Role Phone Sariah Vickers Primary Care Provider [phone] Reason for Visit * Reason Comments Med Refill Encounter Details Date Type Department Care Team ([facility] st Contact Info) Description 03/07/2023 Refill [facility] 230 [place] [address] Sariah Vickers ANP 230 [place] [address] Vertigo Social History Tobacco Use Types Packs/Day [...] 11:00 AM EDT Clinical Support [facility] MED[facility]INE [address] [place] [address] Azeb Hall RN 505 [place] [address] 07/15/2024 1:00 PM EDT Office Visit [facility] MED[facility]INE [address] [place] [address] Sariah Vickers ANP 230 [place] [address] 08/04/2024 1:00 PM EDT Office Visit [facility] ADULT DENTAL [address] [place] [address] Felicia Nuvia 230 [place] [address] documented as of this encounter Goals Goal [...] giddiness documented in this encounter Care Teams Dry Cleaning Supervisor Relationship Specialty Start Date End Date Sariah Vickers ANP [address] [place] [address] PCP - General Family Medicine 09/23/19 documented as of this encounter
--- OUTSIDE RECORDS SUMMARY | 2024-04-30 15:29 | XMS_ITS | Encounter Summary ---
Author Organization [email or web address] Address 75 [facility] 7t [place] [address] Care Team Providers Care Carpet Renovator Name Role Phone Sariah Vickers Primary Care Provider [phone] Reason for Visit * Reason Onset Date Comments Med Refill Durable Medical Equipment 07/15/2023 Foam M attress/Raised Toilet Seat Encounter Details Date Type Department Care Team ([facility] st Contact Info) Description 07/15/[address] [facility] 230 [place], [place] [phone] Sariah Vickers ANP 230 [place] [address] Neck pain Social History Tobacco Use Types [...] Please see request sent via email by [facility] Chalk 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 Arlin Baker. Please Advise. Good morning, Our [...] 07/02/2024 11:00 AM EDT Clinical Support [facility] 230 [place] [address] Azeb Hall RN 505 [place] [address] 07/15/2024 1:00 PM EDT Office Visit [facility] 230 [place] [address] Sariah Vickers ANP 230 [place] [address] 08/04/2024 1:00 PM EDT Office Visit [facility] ADULT DENTAL 230 [place] [address] Nuvia Duarte 230 [place] [address] documented as of this encounter Goals Goal [...] documented as of this encounter Care Teams Carpet Renovator Relationship Specialty Start Date End Date Sariah Vickers ANP 230 [place] [address] PCP - General Family Medicine 09/23/19 documented as of this encounter
--- OUTSIDE RECORDS SUMMARY | 2024-04-30 15:29 | XMS_ITS | Encounter Summary ---
Author Organization [employer] Address 75 [facility] 7t [place] [address] Care Team Providers Care Simulation Specialist Name Role Phone Sariah Vickers Primary Care Provider [phone] Reason for Visit * Reason Comments Med Refill Encounter Details Date Type Department Care Team ([facility] st Contact Info) Description 12/27/2022 Refill [facility] 230 [place] [address] Sariah Vickers ANP 230 [place] [address] Neck pain Social History Tobacco Use Types [...] Description 07/02/2024 11:00 AM EDT Clinical Support [facility] [address] [place] [address] Azeb Hall RN 505 [place] [address] 07/15/2024 1:00 PM EDT Office Visit [facility] [address] [place] [address] Sariah Vickers ANP 230 [place] [address] 08/04/2024 1:00 PM EDT Office Visit [facility] ADULT DENTAL [address] [place] [address] Felicia, Nuvia 230 [place] [address] documented as of this encounter Goals Goal [...] Cervicalgia documented in this encounter Care Teams Simulation Specialist Relationship Specialty Start Date End Date Sariah Vickers ANP [address] [place] [address] PCP - General Family Medicine 09/23/19 documented as of this encounter
--- OUTSIDE RECORDS SUMMARY | 2024-04-30 15:29 | XMS_ITS | Encounter Summary ---
Author Organization [employer] [facility] Address [address] [place] [address] 7t [place] [address] Care Team Providers Care Senior Product Analyst Name Role Phone Sariah Vickers ANP Primary Care Provider [phone] Reason for Visit * Reason Comments Med Refill Encounter Details Date Type Department Care Team (Late Contact Info) Description 07/17/2022 Refill [facility] MEDICINE [address] [place] [address] Sariah Vickers ANP [address] [place] [address] Neck pain Social History Tobacco Use Types [...] Description 07/02/2024 11:00 AM EDT Clinical Support [facility] MEDICINE 230 [place] [address] Azeb Hall, MARTIN 505 [place] [address] 07/15/2024 1:00 PM EDT Office Visit [facility]INE 230 [place] [address] Sariah Vickers ANP 230 [place] [address] 08/04/2024 1:00 PM EDT Office Visit [facility] ADULT DENTAL 230 [place] [address] Nuvia Duarte 230 [place] [address] documented as of this encounter Visit Diagnoses Diagnosis Neck pain Cervicalgia documented in this encounter Care Teams Senior Product Analyst Relationship Specialty Start Date End Date Sariah Vickers ANP [address] [place] [phone] PCP - General Family Medicine 09/23/19 documented as of this encounter
--- OUTSIDE RECORDS SUMMARY | 2024-04-30 15:29 | XMS_ITS | Encounter Summary ---
Author Organization [employer] [facility] Address 75 [facility] 7t [place] [address] Care Team Providers Care Brick Burner Head Name Role Phone Sariah Vickers Primary Care Provider [phone] Reason for Visit * Reason Comments Follow-up Encounter Details Date Type Department Care Team (Latest Contact Info) Description 04/15/2024 1:30 PM EST Office Visit [facility] 230 [place], [place] [phone] Sariah Vickers ANP 230 [place] [address] Umbilical hernia without obstruction and without gangrene [...] Description 07/02/2024 11:00 AM EDT Clinical Support [facility] [address] [place] [address] Azeb Hall RN 505 [place] [address] 07/15/2024 1:00 PM EDT Office Visit [facility] [address] [place] [address] Sariah Vickers ANP [address] [place] [address] 08/04/2024 1:00 PM EDT Office Visit [facility] ADULT DENTAL 230 [place] [address] Nuvia Duarte 230 [place] [address] documented as of this encounter Goals Goal Patient Goal Type Associated Problems Recent Progress Patient-Stated? Author Blood Pressure < 140/90 Blood Pressure 136/88(2024 11:28 AM EDT) No Piers-Gambl eAida, PharmD Record Your Blood Sugar As Directed General No Piers-Gambl e, Aida, PharmD Hemoglobin A1c < 7 Result Component 6.6( 8:44 AM EST) No Piers-Gambl eAida, PharmD documented as of this encounter Procedures [...] BAILEY ID NOW (04/15/2024 2:02 PM EST) [facility] Influenza B Negative Negative, Indeterminate [facility] QC Media Lot # [id number] [facility] Lot# Expiration Date [facility] Swab 04/15/2024 2:02 PM EST us Sariah Vickers ANP POINT OF CARE TEST ENTER/EDIT OR DERABLES Final Result [facility] [address] [place] [address] [phone] * POCT Rapid Covid-19 BinaxNOW (04/15/2024 2:01 PM EST) Rapid COVID Ag Negative QC Media Lot # [id number] Lot# Expiration Date [id number] Swab 04/15/2024 2:01 PM EST Result Harjinder Vickers ANP POINT OF CARE TEST ENTER/EDIT OR DERABLES Final Result * POCT Rapid Influenza A BAILEY ID NOW (04/15/2024 1:59 PM EST) Influenza A Negative Negative, Indeterminate [facility] QC Media Lot # [id number] [facility] Lot# Expiration Date [id number] [facility] Swab 04/15/2024 1:59 PM EST us Sariah PAGE POINT OF CARE TEST ENTER/EDIT OR DERABLES Edited Result - Final Performing Organization Address City/[facility] Co de Phone Number [facility] [address] [place] [phone] documented in this encounter Visit Diagnoses Diagnosis Umbilical hernia without obstruction and without gangrene- Primary Type 2 diabetes mellitus with hyperlipidemia (CMS/HCC) (CMS/HCC) Acute cough documented in this encounter Additional Health Concerns Assessment Noted Time PHQ-9 Depression Total Score: 12 08/2 024 2:58 PM EDT documented as of this encounter Care Teams Brick Burner Head Relationship Specialty Start Date End Date Sariah Vickers ANP [address] [place] [address] PCP - General Family Medicine 09/23/19 documented as of this encounter
--- OUTSIDE RECORDS SUMMARY | 2024-04-30 15:29 | XMS_ITS | Encounter Summary ---
Author Organization [employer] Address 75 [facility] 7t [place] [address] Care Team Providers Care Webfed Offset Press Operator Name Role Phone Sariah Vickers Primary Care Provider [phone] Encounter Details Date Type Department Care Team [...] 11:00 AM EDT Clinical Support [facility] MEDICINE [address] [place] [address] Azeb Hall, MARTIN 505 [place] [address] 07/15/2024 1:00 PM EDT Office Visit [facility] MEDICINE [address] [place] [address] Sariah Vickers ANP 230 [place] [address] 08/04/2024 1:00 PM EDT Office Visit [facility] ADULT DENTAL 230 [place] [address] Nuvia Duarte 230 [place] [address] documented as of this encounter Goals Goal [...] documented as of this encounter Care Teams Webfed Offset Press Operator Relationship Specialty Start Date End Date Sariah Vickers ANP [address] [place] [address] PCP - General Family Medicine 09/23/19 documented as of this encounter
--- OUTSIDE RECORDS SUMMARY | 2024-04-30 15:29 | XMS_ITS | Encounter Summary ---
Author Organization [employer] [facility] Address 75 [facility] 7t [place] [address] Care Team Providers Care Pointer Helper Name Role Phone Sariah Vickers Primary Care Provider [phone] Reason for Visit * Reason Onset Date Comments Nurse Triage 12/24/2022 Encounter Details Date Type Department Care Team ([facility] st Contact Info) Description 12/24/2022 Telephone [facility] 230 [place] [address] Sariah Vickers ANP 230 [place] [address] Nurse Triage Social History Tobacco Use Types [...] the past 12 months, has t he [employer], gas, oil or water [employer] threatened to shut off services in your [...] - 12/24/2022 1:11 PM EST Called pt.via Marcandi outboard motor mechanic [phone] Benjamin. Pt. States that she wants to [...] regimen and possible referral to a new Propagation Manager due to pt. Not having jeremie in [...] accepted this outcome Please contact pt at [phone] documented in this encounter Plan of Treatment Upcoming Encounters Date Type Department Care Team (Late st Contact Info) Description 07/02/2024 11:00 AM EDT Clinical Support [address] [phone] Azeb Hall RN [address] [place] [address] [phone] 07/15/2024 1:00 PM EDT Office Visit [facility] MED[facility]INE 230 [place] [address] Sariah Vickers ANP 230 [place] [address] 08/04/2024 1:00 PM EDT Office Visit [facility] ADULT DENTAL 230 [place], [place] [phone] Felicia, Nuvia 230 [place] [address] documented as of this encounter Goals Goal [...] on filedocumented in this encounter Care Teams Pointer Helper Relationship Specialty Start Date End Date Sariah Vickers ANP [address] [place] [address] PCP - General Family Medicine 09/23/19 documented as of this encounter
--- OUTSIDE RECORDS SUMMARY | 2024-04-30 15:29 | XMS_ITS | Encounter Summary ---
Author Organization [employer] [facility] Address [address] [place] [address] 7t [place] [address] Care Team Providers Care Title Insurance Sales Representative Name Role Phone Sariah Vickers Primary Care Provider [phone] Reason for Visit * Reason Comments Med Refill Encounter Details Date Type Department Care Team (Late Contact Info) Description 07/10/2022 Refill [facility] MEDICINE [address] [place] [address] Sariah Vickers ANP [address] [place] [address] Vertigo Social History Tobacco Use Types Packs/Day [...] Description 07/02/2024 11:00 AM EDT Clinical Support [facility]INE 230 [place] [address] zAeb Hall, MARTIN 505 [place] [address] 07/15/2024 1:00 PM EDT Office Visit [facility] 230 [place] [address] Sairah Vickers ANP 230 [place] [address] 08/04/2024 1:00 PM EDT Office Visit [facility] ADULT DENTAL [address] [place] [address] Nuvia Duarte 230 [place] [address] documented as of this encounter Visit Diagnoses Diagnosis Vertigo Dizziness and giddiness documented in this encounter Care Teams Title Insurance Sales Representative Relationship Specialty Start Date End Date Sariah Vickers ANP [address] [place] [address] PCP - General Family Medicine 09/23/19 documented as of this encounter
--- OUTSIDE RECORDS SUMMARY | 2024-04-30 15:29 | XMS_ITS | Encounter Summary ---
Author Organization [employer] Address 75 [facility] 7t [place] [address] Care Team Providers Care Workforce Staffing Advisor Name Role Phone Sariah Vickers Primary Care Provider [phone] Reason for Visit * Reason Onset Date Comments Chart Prep 04/12/2024 Encounter Details Date Type Department Care Team ([facility] st Contact Info) Description 04/12/2024 Telephone [facility] 230 [place] [address] Sariah Vickers ANP 230 [place] [address] Chart Prep Social History Tobacco Use Types [...] Description 07/02/2024 11:00 AM EDT Clinical Support [facility] MEDICINE [address] [place] [address] Azeb Hall RN 505 [place] [address] 07/15/2024 1:00 PM EDT Office Visit [facility] MEDICINE [address] [place] [address] Sariah Vickers ANP 230 [place] [address] 08/04/2024 1:00 PM EDT Office Visit [facility] ADULT DENTAL 230 [place] [address] Nuvia Duarte 230 [place] [address] documented as of this encounter Goals Goal Patient Goal Type Associated Problems Recent Progress Patient-Stated? Author Blood Pressure < 140/90 Blood Pressure 136/88(2024 11:28 AM EDT) No Aida Ragland, PharmD Record Your Blood [...] documented as of this encounter Care Teams Workforce Staffing Advisor Relationship Specialty Start Date End Date Sariah Vickers ANP [address] [place] [address] PCP - General Family Medicine 09/23/19 documented as of this encounter
--- OUTSIDE RECORDS SUMMARY | 2024-04-30 15:29 | XMS_ITS | Encounter Summary ---
Author Organization [employer] Address 75 [facility] 7t [place] [address] Care Team Providers Care Auto Driver Name Role Phone Sariah Vickers Primary Care Provider [phone] Reason for Visit * Reason Comments Med Refill Encounter Details Date Type Department Care Team ([facility] st Contact Info) Description 02/28/2023 Refill [facility] MED[facility]INE 230 [place] [address] Sariah Vickers ANP 230 [place] [address] Cervicalgia Social History Tobacco Use Types Packs/Day [...] Description 07/02/2024 11:00 AM EDT Clinical Support [facility] MEDICINE [address] [place] [address] Azeb Hall RN 505 [place] [address] 07/15/2024 1:00 PM EDT Office Visit [facility] MEDICINE [address] [place] [address] Sariah Vickers ANP 230 [place] [address] 08/04/2024 1:00 PM EDT Office Visit [facility] ADULT DENTAL [address] [place] [address] Felicia, Nuvia 230 [place] [address] documented as of this encounter Goals Goal [...] Cervicalgia documented in this encounter Care Teams Auto Driver Relationship Specialty Start Date End Date Sariah Vickers ANP [address] [place] [address] PCP - General Family Medicine 09/23/19 documented as of this encounter
--- OUTSIDE RECORDS SUMMARY | 2024-04-30 15:29 | XMS_ITS | Encounter Summary ---
Author Organization [employer] [facility] Address [address] [place] [address] 7t [place] [address] Care Team Providers Care Five Piece Expansion Maker Hand Name Role Phone Sariah Vickers Primary Care Provider [phone] Reason for Visit * Reason Comments Med Refill Encounter Details Date Type Department Care Team (Late Contact Info) Description 07/12/2022 Refill [facility] [address] [place] [address] Sariah Vickers ANP 230 [place] [address] Social History Tobacco Use Types Packs/Day Years [...] Description 07/02/2024 11:00 AM EDT Clinical Support [facility] 230 [place] [address] Azeb Hall, MARTIN 505 [place] [address] 07/15/2024 1:00 PM EDT Office Visit [facility] 230 [place] [address] Sariah Vickers ANP 230 [place] [address] 08/04/2024 1:00 PM EDT Office Visit [facility] ADULT DENTAL 230 [place] [address] Nuvia Duarte 230 [place] [address] documented as of this encounter Visit Diagnoses Not on filedocumented in this encounter Care Teams Five Piece Expansion Maker Hand Relationship Specialty Start Date End Date Sariah Vickers ANP [address] [place] [address] PCP - General Family Medicine 09/23/19 documented as of this encounter
--- OUTSIDE RECORDS SUMMARY | 2024-04-30 15:29 | XMS_ITS | Encounter Summary ---
Author Organization [employer] [facility] Address 75 [facility] 7t [place] [address] Care Team Providers Care Electrical Engineering Manager Name Role Phone Sariah Vickers Primary Care Provider [phone] Reason for Visit * Reason Comments Med Refill Encounter Details Date Type Department Care Team ([facility] st Contact Info) Description 05/21/2023 Refill [facility]INE 230 [place] [address] Sariah Vickers ANP 230 [place] [address] Neck pain Social History Tobacco Use Types [...] Clinical Support [facility] MEDICINE [address] [place] [address] Azeb Hall, MARTIN 505 [place] [address] 07/15/2024 1:00 PM EDT Office Visit [facility] MED[facility]INE [address] [place] [address] Sariah Vickers ANP 230 [place] [address] 08/04/2024 1:00 PM EDT Office Visit [facility] ADULT DENTAL [address] [place] [address] Nuvia Duarte 230 [place] [address] documented as of this encounter Goals Goal [...] Cervicalgia documented in this encounter Care Teams Electrical Engineering Manager Relationship Specialty Start Date End Date Sariah Vickers ANP [address] [place] [address] PCP - General Family Medicine 09/23/19 documented as of this encounter
--- OUTSIDE RECORDS SUMMARY | 2024-04-30 15:29 | XMS_ITS | Encounter Summary ---
Author Organization [employer] Address 75 [facility] 7t [place] [address] Care Team Providers Care Cold Work Operator Name Role Phone Sariah Vickers Primary Care Provider [phone] Reason for Visit * Reason Comments Med Refill Encounter Details Date Type Department Care Team ([facility] st Contact Info) Description 12/19/2022 Refill [facility] MEDICINE 230 [place] [address] Sariah Vickers ANP 230 [place] [address] Vertigo Social History Tobacco Use Types Packs/Day [...] Description 07/02/2024 11:00 AM EDT Clinical Support [facility] MEDICINE [address] [place] [address] Azeb Hall RN 505 [place] [address] 07/15/2024 1:00 PM EDT Office Visit [facility] MED[facility]INE [address] [place] [address] Sariah Vickers ANP 230 [place] [address] 08/04/2024 1:00 PM EDT Office Visit [facility] ADULT DENTAL [address] [place] [address] Felicia Nuvia 230 [place] [address] documented as of this encounter Goals Goal [...] giddiness documented in this encounter Care Teams Cold Work Operator Relationship Specialty Start Date End Date Sariah Vickers ANP [address] [place] [address] PCP - General Family Medicine 09/23/19 documented as of this encounter
--- OUTSIDE RECORDS SUMMARY | 2024-04-30 15:29 | XMS_ITS | Encounter Summary ---
Author Organization [employer] Address 75 [facility] 7t [place] [address] Care Team Providers Care Make Up Worker Name Role Phone Anthony Ruiz Primary Care Provider [phone] Encounter Details Date Type Department Care Team (Late st Contact Info) Description 04/12/2024 Orders Only [facility] External Provider, [facility] Social History Tobacco Use Types Packs/Day [...] Description 07/02/2024 11:00 AM EDT Clinical Support [facility] MEDICINE [address] [place] [address] Azeb Hall, MARTIN [address] [place] [address] 07/15/2024 1:00 PM EDT Office Visit [facility] [address] [place] [address] Anthony Ruiz ANP [address] [place] [address] 08/04/2024 1:00 PM EDT Office Visit [facility] ADULT DENTAL [address] [place] [address] Nuvia Duarte [address] [place] [address] documented as of this encounter Goals Goal [...] EST Narrative 04/17/2024 12:38 PM EST ? [facility] ? [address] ?[place] [address] ? Mammography Report ? Signed ? Patient: Avinash Ho,Nuvia E ?MR ?? #: [id number] ? : 1960 ?Acct:[id number] ? Age/Sex: 63 / F ?ADM Date: 04/12/24 ? Loc: HO.MAMMO ? Attending Dr: Monica Lozano CNM ? Ordering Physician: Monica Lozano CNEstefania ?Results: 2Beni ?? gn Findings ? Date of Service: 04/12/24 ?Follow Up: 1 Year From Orig ?? inal Mammogram ? Procedure(s): MM tomosynthesis screening BI ?? Accession Number(s): [id number] ? cc: Monica Lozano CNM; ANTHONY RUIZ [...] DD/ 1348 ? TD/TT: 04/12/24 1405 ? Managing Consultant: ? Procedure Note Otoniel, Image - 04/17/2024 [facility] [address] [place], [place] [address] Mammography Report Signed Patient: Nuvia Fay EMR #: [id number] : 1Acct:[id number] Age/Sex: 63 / FADM Date: 04/12/24 Loc: HO.MAMMO Attending Dr: Mnoica Lozano CNM Ordering Physician: Monica Lozanoesults: 2Beni gn Findings Date of Service: 04/12/24Follow Up: 1 Year From Orig inal Mammogram Procedure(s): MM tomosynthesis screening BI Accession Number(s): [id number] cc: Monica Lozano CNM; ANTHONY RUIZ NP [...] by: Cherrie Roberts DO 04/17/2024 12:35 PM [facility] Dictated By: Cherrie Roberts DO Signed By: <Electronically signed by Cherrie Roberts DO in OV> 04/17/24 1235 DD/ 1348 TD/TT: 04/12/24 1405 Managing Consultant: [facility] External Provider IMG BI PROCEDURES Edited Result - Final documented in this encounter Visit Diagnoses Not on filedocumented in this encounter Additional Health Concerns Assessment Noted Time PHQ-9 Depression Total Score: 12 09/30/ 024 2:58 PM EDT documented as of this encounter Care Teams Make Up Worker Relationship Specialty Start Date End Date Anthony Ruiz ANP [address] [place] [address] PCP - General Family Medicine 09/23/19 documented as of this encounter
--- OUTSIDE RECORDS SUMMARY | 2024-04-30 15:29 | XMS_ITS | Encounter Summary ---
Author Organization [employer] Address 75 [facility] 7t [place] [address] Care Team Providers Care Legal Department Manager Name Role Phone Sariah Vickers Primary Care Provider [phone] Reason for Visit * Reason Comments Med Refill Encounter Details Date Type Department Care Team ([facility] st Contact Info) Description 06/30/2023 Refill [facility] [address] [place] [address] Sariah Vickers ANP 230 [place] [address] Neck pain Social History Tobacco Use Types [...] Description 07/02/2024 11:00 AM EDT Clinical Support [facility] [address] [place] [address] Azeb Hall RN 505 [place] [address] 07/15/2024 1:00 PM EDT Office Visit [facility] [address] [place] [address] Sariah Vickers ANP 230 [place] [address] 08/04/2024 1:00 PM EDT Office Visit [facility] ADULT DENTAL [address] [place] [address] Nuvia Duarte 230 [place] [address] documented as of this encounter Goals Goal [...] documented as of this encounter Care Teams Legal Department Manager Relationship Specialty Start Date End Date Sariah Vickers ANP [address] [place] [address] PCP - General Family Medicine 09/23/19 documented as of this encounter
--- OUTSIDE RECORDS SUMMARY | 2024-04-30 15:29 | XMS_ITS | Encounter Summary ---
Author Organization [employer] Address 75 [facility] 7t [place] [address] Care Team Providers Care Cart Driver Name Role Phone Sariah Vickers Primary Care Provider Reason for Visit * Reason Comments Med Refill Encounter Details Date Type Department Care Team ([facility] Contact Info) Description 08/14/2022 Refill [facility]EDS [address] [place] [address] Sariah Vickers ANP [address] [place] [address] Severe persistent asthma without complication Social History [...] Upcoming Encounters Date Type Department Care Team ([facility] Contact Info) Description 07/02/2024 11:00 AM EDT Clinical Support [facility] MEDICINE [address] [place] [address] Azeb Hall, RN [address] [place] [address] 07/15/2024 1:00 PM EDT Office Visit [facility] MED[facility]INE [address] [place] [address] Sariah Vickers ANP [address] [place] [address] 08/04/2024 1:00 PM EDT Office Visit [facility] ADULT DENTAL [address] [place] [address] Nuvia Duarte [address] [place] [address] documented as of this encounter Visit Diagnoses Diagnosis Severe persistent asthma without complication documented in this encounter Care Teams Cart Driver Relationship Specialty Start Date End Date Sariah Vickers ANP [address] [place] [address] PCP - General Family Medicine 09/23/19 documented as of this encounter
[2024-05-12 10:40] VITALS: BP 141/87; PULSE 81; RESP 16; O2SAT 97; BMI 34.7
--- NOTE | 2024-05-26 21:09 | P.HPSUR_ITS ---
Pre-Procedural Eval Section A - 24 Hr Update-Section A only Date of Service: 05/27/24 The patient is an INPATIENT: No Changes since office visit: No Cold of Flu in the past 2 weeks, No New Medical Problems, No Changes in Medication and No Patient answered all questions Section B - Complete if H&P > 30 days Chief Complaint: Umbilical hernia without obstruction or gangrene Allergies: Allergies Allergy/AdvReac Type Severity Reaction Status Date / Time aspirin [Aspirin] Allergy Mild ITCHY Verified 05/04/24 11:03 THROAT azithromycin Allergy Unknown Unknown Verified 05/04/24 11:03 naproxen Allergy Unknown Unknown Verified 05/04/24 11:03 simvastatin Allergy Unknown Unknown Verified 05/04/24 11:03 Fish Containing Products Allergy Swelling Verified 05/04/24 11:03 vancomycin Allergy Rash Verified 05/04/24 11:03 onion [ONION] AdvReac Mild RED FACE Verified 05/04/24 11:03 Review of Systems Sugical H&P ROS: Negative: Constitution, Cardiovascular, Respiratory, Neurological, Psychiatric, Hem-Onc, Allergic/Immunologic, Gastrointestinal, Genitourinary, Musculoskeletal, Integumentary, Endocrine and Eyes/Ears/Nose/ Throat Exam Surgical H&P Exam: Normal: HEENT, Normal: Heart, Normal: Lungs, Normal: Extremities, Normal: Abdomen, Normal: Skin and Normal: Neurological Plan I have reviewed the history and physical and performed a pertinent physical examination on my patient. No changes have occurred unless specified. Time Spent With Patient Time: Total time managing care of this patient today ____ minutes.
[2024-05-27] VITALS (8 sets, daily range): BP systolic 120–134; BP diastolic 73–85; PULSE 69–99; RESP 16–22; TEMP 36.3–37.1; O2SAT 92–99; BMI 34.7
[2024-05-27 08:20] LABS: Glucose, Whole Blood 146 mg/dL (60-115)
[2024-05-27 08:33] LABS: Amphetamine Screen Urine Not Detected (Not Detect); Barbiturates, Urine Not Detected (Not Detect); Benzodiazepines Screen Urine Not Detected (Not Detect); Buprenorphine Scr Not Detected (Not Detect); Cannabinoid Screen Urine Not Detected (Not Detect); Cocaine Screen Urine Not Detected (Not Detect); Fentanyl, urine Not Detected (Not Detect); Methadone Screen, Urine Not Detected (Not Detect); Opiate Screen Urine Not Detected (Not Detect); Oxycodone Screen Urine Not Detected (Not Detect); Phencyclidine Screen Urine Not Detected (Not Detect)
[2024-05-27] MEDS: Lactated Ringers 1,000 ML 100 ML IVCONT (08:42)
[2024-05-27] MEDS: Albuterol Sulfate (0.083%) 2.5 MG/3 ML VIAL.NEB INHALE (08:46)
--- NOTE | 2024-05-27 10:20 | HO.ANESPROP2 ---
Documented by User: Swapna Lockwood NP 05/25/24 12:52 HPI - Anesthesia Eval Consult details Narrative: 63yo F for Hernia Umbilical Reducible with mesh, 05/27/24 Pulmo optimized. Follows [facility] [place] Pulmo for COPD/Asthma - well controlled on current regimen No CP/SOB with walking and biking all over [place] DM 2: FBS ~110 Asthma/COPD: well controlled Hx cocaine abuse: many years Anesthesia Pre-Procedure Meds Is the patient on any of the following meds?: GLP1/DPP4 PMFSH Active Problems Active Problems: All Active Problems Umbilical hernia (Acute) Carbuncle (Acute) Pulmonary hypertension, pre-operative cardiovascular examination (Acute) Umbilical hernia (Acute) Uncontrolled type 2 diabetes mellitus with hyperglycemia, with long-term current use of insulin (Acute) Abdominal wall cellulitis (Acute) Carbuncle of abdominal wall (Acute) Carbuncle and furuncle of buttock (Acute) Cellulitis of labia (Acute) Asthma-COPD overlap syndrome (Acute) Osteoarthritis of first carpometacarpal (CMC) joint of one hand (Acute) Trigger finger of left thumb (Acute) Small bowel motility disorder (Acute) Chronic SI joint pain (Acute) Tubular adenoma of colon (Acute) Varicose veins of left lower extremity with inflammation (Acute) Spondylosis of lumbar region without myelopathy or radiculopathy (Acute) Osteoarthritis of knees, bilateral (Acute) Hemorrhoids (Acute) Ectatic aorta (Acute) GERD (gastroesophageal reflux disease) (Acute) Chronic idiopathic constipation (Acute) OKEEFE (nonalcoholic steatohepatitis) (Acute) Nephrolithiasis (Acute) Allergic rhinitis (Acute) CTS (carpal tunnel syndrome) (Acute) Plantar fasciitis (Acute) Cervical spondylosis (Acute) Fibromyalgia (Acute) Depression with anxiety (Acute) PTSD (post-traumatic stress disorder) (Acute) Smoker (Acute) COPD (chronic obstructive pulmonary disease) (Acute) NIDDY (non-insulin dependent diabetes mellitus in young) (Acute) High cholesterol (Acute) Hypertension (Acute) Severe persistent asthma (Acute) Environmental allergies (Acute) Non-toxic multinodular goiter (Acute) Hypothyroidism (Acute) Past Medical History Medical History (Updated 05/12/24 @ 10:21 by Isis Pope RN) Arthritis Thyroid disease Bilateral renal cysts Right bundle branch block Dental calculus Depression Varicose veins of left lower extremity Ectatic aorta Paresthesia Paresis of one side of face Neck pain Insomnia disorder, with non-sleep disorder mental comorbidity Increased immunoglobulin Constipation Aneurysm of left internal carotid artery Abnormal ultrasound of kidney Type 2 diabetes mellitus History of kidney stones Abnormal finding on ultrasound Tear of medial meniscus of left knee Leg pain Kidney stone on left side MOCK (dyspnea on exertion) Patellofemoral arthritis of left knee Trochanteric bursitis of right hip COVID-19 Carpal tunnel syndrome of right wrist Renal calculi UTI (urinary tract infection) Allergic rhinitis Anxiety and depression Fibromyalgia HTN (hypertension) PTSD (post-traumatic stress disorder) Preop pulmonary/respiratory exam Vertigo Diabetes Asthma Chest pain Tubular adenoma of colon Vulvovaginitis Acute asthma exacerbation Candidiasis of mouth and esophagus Bronchitis Spondylosis of cervical region without myelopathy or radiculopathy Bronchitis COPD exacerbation Yeast infection Papanicolaou smear for cervical cancer screening Bilateral hand pain Bilateral knee pain Low vitamin D level Dry mouth Environmental allergies Severe persistent asthma Non-toxic multinodular goiter Hypothyroidism Type 2 diabetes mellitus with hyperglycemia DVT (deep venous thrombosis) Menopausal state Cocaine abuse Family History Family History Father No problems noted. Mother Myocardial infarction CVA (cerebral vascular accident) Family history of problems with anesthesia: No Surgical History Surgical History Hx of carpal tunnel repair History of esophagogastroduodenoscopy (EGD) H/O colonoscopy with polypectomy History of selective injection of anesthetic agent around lumbar nerve root Hx of right breast biopsy History of hysterectomy History of lithotripsy History of Problems with Anesthesia: No Social History Social History Household Members: Children Housing: Apartment Are you a primary home care manager rn to a significant other at home: No Do you presently have visiting nurse or other home services: Yes (PROGRAM/MUSIC DIRECTOR) Alcohol intake: never Patient Tobacco Use Status: Never used Tobacco Use of substances other than those prescribed or required for medical reasons: No Have you been hit, kicked, punched, or otherwise hurt by someone within the past year? 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 Meds Allergies Allergy/AdvReac Type Severity Reaction Status Date / Time Fish Containing Products Allergy Intermediate Swelling Verified 05/27/24 08:32 vancomycin Allergy Intermediate Rash Verified 05/27/24 08:32 aspirin [Aspirin] Allergy Mild ITCHY Verified 05/27/24 08:32 THROAT azithromycin Allergy Unknown Unknown Verified 05/27/24 08:32 naproxen Allergy Unknown Unknown Verified 05/27/24 08:32 simvastatin Allergy Unknown Unknown Verified 05/27/24 08:32 onion [ONION] AdvReac Mild RED FACE Verified 05/27/24 08:32 Home Medications ?Medication ?Instructions ?Recorded ?Confirmed ?Last Taken ?Type potassium chloride 20 mEq 20 meq PO BID 11/20/19 05/27/24 Unknown History tablet,extended release(part/cryst) zolpidem 10 mg tablet 10 mg PO BEDTIME PRN Insomnia 11/20/19 05/27/24 Unknown History clonazepam 1 mg tablet (Klonopin) 1 mg PO DAILY 03/08/20 05/27/24 Unknown History montelukast 10 mg tablet 10 mg PO BEDTIME 03/08/20 05/27/24 Unknown History multivitamin-ferrous 1 tab PO DAILY 07/06/21 05/27/24 Unknown History fumarate-folic acid 18 mg-400 mcg tablet (Certavite-Antioxidant) tramadol 50 mg tablet 50 mg PO Q12H PRN Pain 01/31/22 05/27/24 Unknown History acetaminophen 325 mg tablet 650 mg PO Q6H PRN pain 06/11/22 05/27/24 Unknown History amlodipine 10 mg tablet 10 mg PO BEDTIME 07/09/23 05/27/24 05/27/24 History atorvastatin 80 mg tablet 80 mg PO BEDTIME 07/09/23 05/27/24 Unknown History cetirizine 10 mg tablet 10 mg PO QPM 07/09/23 05/27/24 Unknown History enalapril maleate 20 mg tablet 20 mg PO DAILY 07/09/23 05/27/24 Unknown History buspirone 15 mg tablet 15 mg PO TID 12/18/23 05/27/24 Unknown History insulin lispro 100 unit/mL 4 unit subcut TID PRN Hyperglycemia 12/18/23 05/27/24 Unknown History subcutaneous pen (Humalog KwikPen (U-100) Insulin) meclizine 25 mg tablet 25 mg PO TID PRN Dizziness 12/18/23 05/27/24 Unknown History clonazepam 1 mg tablet 0.5 mg PO BEDTIME PRN Sleep 03/21/24 05/27/24 Unknown History fluticasone propionate 50 2 spray intranasal QAM 03/21/24 05/27/24 Unknown History mcg/actuation nasal spray,suspension ipratropium 0.5 mg-albuterol 3 mg 3 ml inhalation Q6H PRN Shortness 03/21/24 05/27/24 Unknown History (2.5 mg base)/3 mL nebulization Of Breath Or Wheezing soln ipratropium 20 mcg-albuterol 100 1 puff inhalation BID PRN 03/21/24 05/27/24 Unknown History mcg/actuation mist for inhalation Shortness Of Breath Or Wheezing (Combivent Respimat) lidocaine 5 % topical patch 1 patch topical DAILY PRN Pain 03/21/24 05/27/24 Unknown History risperidone 0.5 mg tablet 0.5 mg PO BID 03/21/24 05/27/24 Unknown History plecanatide 3 mg tablet (Trulance) 3 mg PO BEDTIME 05/12/24 05/27/24 Unknown History Exam Pertinent Lab Results Pertinent Lab Results: Laboratory Tests 03/23/24 06:12 WBC 7.2 Hgb 13.1 Hct 38.8 Plt Count 302 Sodium 146 H Potassium 3.3 Chloride 112 H Carbon Dioxide 25 BUN 15 Creatinine 0.76 Narrative Narrative: EKG 2024 Sinus rhythm with 1st degree A-V block Left anterior fascicular block Minimal voltage criteria for LVH, may be normal variant ( Knapp product ) Abnormal ECG When compared with ECG of 28-Dec-2023 11:03, No significant change was found Head CT 2022 FINDINGS: There is no evidence of acute intracranial hemorrhage or territorial infarction. No abnormal mass effect or midline shift is seen. [place] to white matter differentiation is well preserved. No extra-axial fluid collections are identified. The ventricles are normal in size. There is no abnormal attenuation within the brain parenchyma. The osseous structures and soft tissues are normal. The mastoid air cells and visualized portions of the paranasal sinuses are well aerated. CT angio head neck 2021 IMPRESSION: There is a 0.5 cm incidental aneurysm involving the left extradural internal carotid artery at the junction of the vertical and horizontal petrous segments causing chronic remodeling of the left petrous temporal bone. No intradural aneurysm. Heavily calcified atheromatous plaque involves both carotid bifurcations. No stenosis of the cervical carotid or vertebral arteries is identified on this examination. Of note the proximal V2 segments of both vertebral arteries are partially obscured by reflux of high density venous contrast into the vertebral veins. No intracranial large vessel occlusion. There are a few small chronic bilateral cerebellar infarcts and a few scattered chronic small vessel ischemic changes within the periventricular white matter. No evidence of acute territorial infarct or hemorrhage. No abnormal intracranial mass or enhancement. Airway Mallampati Class: II TM Dist: >3cm Neck ROM: Full Partial: Upper and Lower Heart: RRR Lungs: CTAB Assessment and Plan Assessment Anesthesia Assessment: Anesthesia Plan Discussed and PAT Visit Final Anesthetic Review Family History of Problems with Anesthesia: No History of Problems with Anesthesia: No Documented by User: Gabi Ruiz DO 05/27/24 10:46 HPI - Anesthesia Eval Anesthesia Pre-Procedure Meds Is the patient on any of the following meds?: GLP1/DPP4 [facility] Past Medical History Medical History (Updated 05/12/24 @ 10:21 by Isis Pope RN) Arthritis Thyroid disease Bilateral renal cysts Right bundle branch block Dental calculus Depression Varicose veins of left lower extremity Ectatic aorta Paresthesia Paresis of one side of face Neck pain Insomnia disorder, with non-sleep disorder mental comorbidity Increased immunoglobulin Constipation Aneurysm of left internal carotid artery Abnormal ultrasound of kidney Type 2 diabetes mellitus History of kidney stones Abnormal finding on ultrasound Tear of medial meniscus of left knee Leg pain Kidney stone on left side MOCK (dyspnea on exertion) Patellofemoral arthritis of left knee Trochanteric bursitis of right hip COVID-19 Carpal tunnel syndrome of right wrist Renal calculi UTI (urinary tract infection) Allergic rhinitis Anxiety and depression Fibromyalgia HTN (hypertension) PTSD (post-traumatic stress disorder) Preop pulmonary/respiratory exam Vertigo Diabetes Asthma Chest pain Tubular adenoma of colon Vulvovaginitis Acute asthma exacerbation Candidiasis of mouth and esophagus Bronchitis Spondylosis of cervical region without myelopathy or radiculopathy Bronchitis COPD exacerbation Yeast infection Papanicolaou smear for cervical cancer screening Bilateral hand pain Bilateral knee pain Low vitamin D level Dry mouth Environmental allergies Severe persistent asthma Non-toxic multinodular goiter Hypothyroidism Type 2 diabetes mellitus with hyperglycemia DVT (deep venous thrombosis) Menopausal state Cocaine abuse Family History Family History Father No problems noted. Mother Myocardial infarction CVA (cerebral vascular accident) Family history of problems with anesthesia: No Surgical History Surgical History Hx of carpal tunnel repair History of esophagogastroduodenoscopy (EGD) H/O colonoscopy with polypectomy History of selective injection of anesthetic agent around lumbar nerve root Hx of right breast biopsy History of hysterectomy History of lithotripsy History of Problems with Anesthesia: No Social History Social History Household Members: Children Housing: Apartment Are you a primary home care manager rn to a significant other at home: No Do you presently have visiting nurse or other home services: Yes (PROGRAM/MUSIC DIRECTOR) Alcohol intake: never Patient Tobacco Use Status: Never used Tobacco Use of substances other than those prescribed or required for medical reasons: No Have you been hit, kicked, punched, or otherwise hurt by someone within the past year? 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 Meds Allergies Allergy/AdvReac Type Severity Reaction Status Date / Time Fish Containing Products Allergy Intermediate Swelling Verified 05/27/24 08:32 vancomycin Allergy Intermediate Rash Verified 05/27/24 08:32 aspirin [Aspirin] Allergy Mild ITCHY Verified 05/27/24 08:32 THROAT azithromycin Allergy Unknown Unknown Verified 05/27/24 08:32 naproxen Allergy Unknown Unknown Verified 05/27/24 08:32 simvastatin Allergy Unknown Unknown Verified 05/27/24 08:32 onion [ONION] AdvReac Mild RED FACE Verified 05/27/24 08:32 Home Medications ?Medication ?Instructions ?Recorded ?Confirmed ?Last Taken ?Type potassium chloride 20 mEq 20 meq PO BID 11/20/19 05/27/24 Unknown History tablet,extended release(part/cryst) zolpidem 10 mg tablet 10 mg PO BEDTIME PRN Insomnia 11/20/19 05/27/24 Unknown History clonazepam 1 mg tablet (Klonopin) 1 mg PO DAILY 03/08/20 05/27/24 Unknown History montelukast 10 mg tablet 10 mg PO BEDTIME 03/08/20 05/27/24 Unknown History multivitamin-ferrous 1 tab PO DAILY 07/06/21 05/27/24 Unknown History fumarate-folic acid 18 mg-400 mcg tablet (Certavite-Antioxidant) tramadol 50 mg tablet 50 mg PO Q12H PRN Pain 01/31/22 05/27/24 Unknown History acetaminophen 325 mg tablet 650 mg PO Q6H PRN pain 06/11/22 05/27/24 Unknown History amlodipine 10 mg tablet 10 mg PO BEDTIME 07/09/23 05/27/24 05/27/24 History atorvastatin 80 mg tablet 80 mg PO BEDTIME 07/09/23 05/27/24 Unknown History cetirizine 10 mg tablet 10 mg PO QPM 07/09/23 05/27/24 Unknown History enalapril maleate 20 mg tablet 20 mg PO DAILY 07/09/23 05/27/24 Unknown History buspirone 15 mg tablet 15 mg PO TID 12/18/23 05/27/24 Unknown History insulin lispro 100 unit/mL 4 unit subcut TID PRN Hyperglycemia 12/18/23 05/27/24 Unknown History subcutaneous pen (Humalog KwikPen (U-100) Insulin) meclizine 25 mg tablet 25 mg PO TID PRN Dizziness 12/18/23 05/27/24 Unknown History clonazepam 1 mg tablet 0.5 mg PO BEDTIME PRN Sleep 03/21/24 05/27/24 Unknown History fluticasone propionate 50 2 spray intranasal QAM 03/21/24 05/27/24 Unknown History mcg/actuation nasal spray,suspension ipratropium 0.5 mg-albuterol 3 mg 3 ml inhalation Q6H PRN Shortness 03/21/24 05/27/24 Unknown History (2.5 mg base)/3 mL nebulization Of Breath Or Wheezing soln ipratropium 20 mcg-albuterol 100 1 puff inhalation BID PRN 03/21/24 05/27/24 Unknown History mcg/actuation mist for inhalation Shortness Of Breath Or Wheezing (Combivent Respimat) lidocaine 5 % topical patch 1 patch topical DAILY PRN Pain 03/21/24 05/27/24 Unknown History risperidone 0.5 mg tablet 0.5 mg PO BID 03/21/24 05/27/24 Unknown History plecanatide 3 mg tablet (Trulance) 3 mg PO BEDTIME 05/12/24 05/27/24 Unknown History Exam Exam Date and Time: 05/27/24 1020 Height,Weight and Vital Signs: Height 5 ft 3.5 in Weight 90.3 kg Vital Signs Pulse Rate 81 05/12/24 10:40 Respiratory Rate 16 05/12/24 10:40 Blood Pressure 141/87 H 05/12/24 10:40 Pulse Oximetry 97 05/12/24 10:40 Oxygen Delivery Method Room Air 05/12/24 10:40 Temperature 97.4 F 05/27/24 08:28 Pulse Rate 99 05/27/24 08:28 Respiratory Rate 16 05/27/24 08:28 Blood Pressure 132/84 05/27/24 08:28 Pulse Oximetry 94 05/27/24 08:28 Oxygen Delivery Method Room Air 05/27/24 08:28 Airway Mallampati Class: II TM Dist: >3cm Neck ROM: Full Partial: Upper and Lower Heart: S1S2 Assessment and Plan Assessment Anesthesia Assessment: Anesthesia Plan Discussed and Chart Reviewed Final Anesthetic Review Family History of Problems with Anesthesia: No History of Problems with Anesthesia: No NPO: Yes ASA Class: III Final Preanesthetic Review: No Changes in Pt Med Stat, Meds/Allgs Chart Reviewed, Consent Obtained/Reviewed (sports management intern at bedside for translation) and Anes Risks/Benef Reviewed Patient Risk: Intermediate Procedure Risk: Low Anesthetic Plan Anesthetic Plan: MAC: and Agree w/ Assess. and Plan Disposition: Standard PACU
[2024-05-27] MEDS: ceFAZolin Sodium/Dextrose,Iso 2 GM/50 ML PIGGYBACK IV (10:35)
--- NOTE | 2024-05-27 11:04 | P.OP_ITS ---
Operative Note Operative Note Date of Service: 05/27/24 Narrative: Preoperative diagnosis: [] Symptomatic enlarging incarcerated umbilical hernia Postop diagnosis: [] The same Procedure [] open umbilical herniorrhaphy with Bard mesh Surgeon: [] Zac [employer] Specialist: [] Yadi Type of Anesthesia: [] Mac Indication for surgery: [] Roughly 3 cm incarcerated umbilical hernia with omental contents Findings: [] Patient brought to the operating room, placed on operative table supine position, after an adequate level of MAC anesthesia was induced, the patient's abdomen which was moderately corpulent was prepped and draped in usual sterile fashion using an infraumbilical curvilinear incision, this carried down through skin, subcutaneous tissue, where hernia sac was identified, from the posterior aspect of the umbilicus, dissected down the fascia, and opened. Incarcerated omental contents were from the sac and reduced. Sac was then amputated using Bovie. Fascia margins were circumferentially cleared. Appropriately sized Bard mesh was placed in the defect and the superficial layer of the mesh circumferentially sutured to the surrounding fascia using interrupted 0 Ethibond suture. At completion of procedure, mesh was in good position with no gaps or tension. Wound was irrigated, secured hemostasis, and closed in the following manner; posterior aspect of the umbilicus was tacked to the wound floor using interrupted 3-0 Vicryl sutures. Skin wounds were closed using subcuticular 3-0 Vicryl sutures followed by Steri-Strips and sterile dressings. Wound was infiltrated at the beginning at the end of the case with 0.5% Marcaine/1% lidocaine. Sponge, needle, and instrument counts reported correct. Patient tolerated the procedure well and emerged from anesthesia stable condition. EBL minimal
[2024-05-27 12:14] LABS: Glucose, Whole Blood 179 mg/dL (60-115)
[2024-05-27] MEDS: Ondansetron ODT 4 MG TAB.RAPDIS TRANSLINGU (12:18)
== END 2024-05-27 12:54 | disposition home or self-care (01) ==
PROVIDERS: Nurse Practitioner; PCP Nurse Practitioner Primary Care; Visit Provider Surgery
PROC: (CPT 49592; principal; 2024-05-27 10:20)
DX: K42.0 Umbilical hernia with obstruction, without gangrene (principal); J45.50 Severe persistent asthma, uncomplicated; I10 Essential (primary) hypertension; J44.9 Chronic obstructive pulmonary disease, unspecified; E11.65 Type 2 diabetes mellitus with hyperglycemia; M79.7 Fibromyalgia; F41.9 Anxiety disorder, unspecified; F43.10 Post-traumatic stress disorder, unspecified; Z87.442 Personal history of urinary calculi; F14.10 Cocaine abuse, uncomplicated; Z79.4 Long term (current) use of insulin; Z79.84 Long term (current) use of oral hypoglycemic drugs; Z79.85 Long-term (current) use of injectable non-insulin antidiabetic drugs; Z79.51 Long term (current) use of inhaled steroids; Z79.52 Long term (current) use of systemic steroids; Z79.899 Other long term (current) drug therapy; Z88.1 Allergy status to other antibiotic agents; Z88.6 Allergy status to analgesic agent; Z88.8 Allergy status to other drugs, medicaments and biological substances; Z98.890 Other specified postprocedural states
CPT/HCPCS: 49592; 80307; 82947; C1781; J0690; J1885; J2003; J2250; J2704; J2795; J3010

== ENCOUNTER → 2024-05-27 07:53 | Outpatient (BNV) | payer OTHER, SELFPAY | PROVIDERS: PCP Nurse Practitioner Primary Care; Visit Provider Surgery | DX: K42.0 Umbilical hernia with obstruction, without gangrene (principal) | CPT/HCPCS: 49594 ==

== ENCOUNTER 2024-05-30 12:18 | Emergency (ER) | payer OTHER, SELFPAY ==
--- NOTE | 2024-05-30 12:38 | ED.GENADULT ---
HPI - General Adult General Chief complaint: Skin/Abscess/Foreign Body Stated complaint: abd pain Time Seen by Provider: 05/30/24 15:10 History of Present Illness ED Provider: Viji SETHI narrative: The patient is a 63-year-old woman who had an outpatient umbilical car hernia repair by Dr. Frank 3 days ago on May 27. She has subsequently developed an area of redness and discomfort to the skin below the umbilicus. She does not think she has had a fever. No nausea or vomiting. Related Data Home Medications ?Medication ?Instructions ?Recorded ?Confirmed potassium chloride 20 mEq 20 meq PO BID 11/20/19 05/27/24 tablet,extended release(part/cryst) zolpidem 10 mg tablet 10 mg PO BEDTIME PRN Insomnia 11/20/19 05/27/24 clonazepam 1 mg tablet (Klonopin) 1 mg PO DAILY 03/08/20 05/27/24 montelukast 10 mg tablet 10 mg PO BEDTIME 03/08/20 05/27/24 multivitamin-ferrous 1 tab PO DAILY 07/06/21 05/27/24 fumarate-folic acid 18 mg-400 mcg tablet (Certavite-Antioxidant) tramadol 50 mg tablet 50 mg PO Q12H PRN Pain 01/31/22 05/27/24 acetaminophen 325 mg tablet 650 mg PO Q6H PRN pain 06/11/22 05/27/24 amlodipine 10 mg tablet 10 mg PO BEDTIME 07/09/23 05/27/24 atorvastatin 80 mg tablet 80 mg PO BEDTIME 07/09/23 05/27/24 cetirizine 10 mg tablet 10 mg PO QPM 07/09/23 05/27/24 enalapril maleate 20 mg tablet 20 mg PO DAILY 07/09/23 05/27/24 buspirone 15 mg tablet 15 mg PO TID 12/18/23 05/27/24 insulin lispro 100 unit/mL 4 unit subcut TID PRN Hyperglycemia 12/18/23 05/27/24 subcutaneous pen (Humalog KwikPen (U-100) Insulin) meclizine 25 mg tablet 25 mg PO TID PRN Dizziness 12/18/23 05/27/24 clonazepam 1 mg tablet 0.5 mg PO BEDTIME PRN Sleep 03/21/24 05/27/24 fluticasone propionate 50 2 spray intranasal QAM 03/21/24 05/27/24 mcg/actuation nasal spray,suspension ipratropium 0.5 mg-albuterol 3 mg 3 ml inhalation Q6H PRN Shortness 03/21/24 05/27/24 (2.5 mg base)/3 mL nebulization Of Breath Or Wheezing soln ipratropium 20 mcg-albuterol 100 1 puff inhalation BID PRN 03/21/24 05/27/24 mcg/actuation mist for inhalation Shortness Of Breath Or Wheezing (Combivent Respimat) lidocaine 5 % topical patch 1 patch topical DAILY PRN Pain 03/21/24 05/27/24 risperidone 0.5 mg tablet 0.5 mg PO BID 03/21/24 05/27/24 plecanatide 3 mg tablet (Trulance) 3 mg PO BEDTIME 05/12/24 05/27/24 Previous Rx's ?Medication ?Instructions ?Recorded leg brace (Knee Support Brace) #2 ea 03/08/20 blood-glucose meter (FreeStyle #1 ea 02/28/22 Flash System kit) pen needle, diabetic 32 gauge x ##100 10/01/22 (UltiCare Pen Needle) gabapentin 400 mg capsule 400 mg PO BEDTIME #30 caps 01/01/23 levothyroxine 75 mcg tablet 75 mcg PO QAM #90 tabs 04/14/23 omalizumab 150 mg subcutaneous 300 mg subcut Q2W 28 days #4 ea 05/19/23 solution Lactobacil rhamnosus GG 10 billion 1 cap PO DAILY #30 caps 11/07/23 cell-inulin 200 mg sprinkle capsule ([facility] sofatutor [facility]) albuterol sulfate 90 mcg/actuation 2 puff inhalation Q4-6H PRN for 11/17/23 aerosol inhaler (Ventolin HFA) wheezing #18 grams docusate sodium 100 mg capsule 100 mg PO BID #60 caps 11/20/23 (Stool Softener) omeprazole 20 mg capsule,delayed 20 mg PO BID #60 caps 11/20/23 release tiotropium bromide 18 mcg capsule 1 cap inhalation DAILY #30 caps 02/09/24 with inhalation device (Spiriva with HandiHaler) blood sugar diagnostic (FreeStyle #100 strips 03/19/24 Lite Strips) lancets 33 gauge (TRUEplus Lancets) #100 ea 03/19/24 blood-glucose sensor (FreeStyle #2 ea 04/02/24 Jalil 3 Plus Sensor device) blood-glucose,general matcher,cont #1 ea 04/02/24 (FreeStyle Jalil 3 Mcgregor) semaglutide 0.25 mg or 0.5 mg (2 0.5 mg (0.736 mL) subcut SA #3 mL 04/06/24 mg/3 mL) subcutaneous pen injector (Ozempic) hydrocodone 5 mg-acetaminophen 325 1 tab PO Q4-6H PRN pain #30 tabs 05/27/24 mg tablet metoclopramide HCl 5 mg tablet 5 mg PO TID #90 tabs 05/27/24 sennosides 8.6 mg tablet (senna) 17.2 mg (2 x 8.6 mg) PO BEDTIME 05/27/24 for constipation #60 tabs cephalexin 500 mg capsule 500 mg PO QID 8 days #32 caps 05/30/24 doxycycline monohydrate 100 mg 100 mg PO BID 8 days #16 caps 05/30/24 capsule Allergies Allergy/AdvReac Type Severity Reaction Status Date / Time Fish Containing Products Allergy Intermediate Swelling Verified 05/30/24 12:42 vancomycin Allergy Intermediate Rash Verified 05/30/24 12:42 aspirin [Aspirin] Allergy Mild ITCHY Verified 05/30/24 12:42 THROAT azithromycin Allergy Unknown Unknown Verified 05/30/24 12:42 naproxen Allergy Unknown Unknown Verified 05/30/24 12:42 simvastatin Allergy Unknown Unknown Verified 05/30/24 12:42 onion [ONION] AdvReac Mild RED FACE Verified 05/30/24 12:42 Review of Systems Review of Systems: Yes all other systems are reviewed and are negative [facility] Past Medical History Medical History (Updated 05/30/24 @ 18:33 by Zachary Hallman MD) Arthritis Thyroid disease Bilateral renal cysts Right bundle branch block Dental calculus Depression Varicose veins of left lower extremity Ectatic aorta Paresthesia Paresis of one side of face Neck pain Insomnia disorder, with non-sleep disorder mental comorbidity Increased immunoglobulin Constipation Aneurysm of left internal carotid artery Abnormal ultrasound of kidney Type 2 diabetes mellitus History of kidney stones Abnormal finding on ultrasound Tear of medial meniscus of left knee Leg pain Kidney stone on left side MOCK (dyspnea on exertion) Patellofemoral arthritis of left knee Trochanteric bursitis of right hip COVID-19 Carpal tunnel syndrome of right wrist Renal calculi UTI (urinary tract infection) Allergic rhinitis Anxiety and depression Fibromyalgia HTN (hypertension) PTSD (post-traumatic stress disorder) Preop pulmonary/respiratory exam Vertigo Diabetes Asthma Chest pain Tubular adenoma of colon Vulvovaginitis Acute asthma exacerbation Candidiasis of mouth and esophagus Bronchitis Spondylosis of cervical region without myelopathy or radiculopathy Bronchitis COPD exacerbation Yeast infection Papanicolaou smear for cervical cancer screening Bilateral hand pain Bilateral knee pain Low vitamin D level Dry mouth Environmental allergies Severe persistent asthma Non-toxic multinodular goiter Hypothyroidism Type 2 diabetes mellitus with hyperglycemia DVT (deep venous thrombosis) Menopausal state Cocaine abuse Surgical History Hx of carpal tunnel repair History of esophagogastroduodenoscopy (EGD) H/O colonoscopy with polypectomy History of selective injection of anesthetic agent around lumbar nerve root Hx of right breast biopsy History of hysterectomy History of lithotripsy Family History Family History Father No problems noted. 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 She does not appear toxic or in distress. Orientation/consciousness: patient oriented x3 HENMT Other: Face is symmetrical, mucous membranes moist. Eyes General: appearance normal, both eyes and all related structures Neck Neck: Yes full ROM Resp Effort & Inspection: normal respiratory effort Auscultation: clear to auscultation bilaterally Cardio Rate: regular rate Rhythm: regular rhythm Heart sounds: S1 normal heart sound present and S2 normal heart sound present GI Other: The skin of the lower abdomen has a large patch of erythema that extends from the umbilicus into the suprapubic region. This area of skin is mildly tender. Otherwise the abdomen does not appear distended or acutely tender elsewhere. Skin Other: The skin is normal aside from the skin of the abdominal wall where there is an area of erythema extending from the umbilicus down into the suprapubic region. Neuro General: patient oriented x3, tone normal, moves all extremities, no focal motor deficits and CN's II-XI intact bilaterally Extrem Other: No deformities to the extremities, no tenderness Course Course Course Narrative: This is a rapid medical exam performed by Aguilar Ragsdale NP: Additional HPI, ROS, PE not included below will be deferred to primary provider. 05/30/24 12:39 Patient is a 63-year-old Telugu speaking female with history of T2DM, asthma, DVT is past no longer on Eliquis, hypothyroidism, HTN, PTSD, fibromyalgia, recent umbilical hernia repair on 05/27 presenting with complaint of erythema and warmth to lower abdomen since Friday. Was not started on abx after surgery. Plan: labs, cxs Medications Administered Discontinued Medications Generic Name Dose Route Start Last Admin Trade Name Mesfinq PRN Reason Stop Dose Admin Doxycycline Hyclate 100 mg/ 250 mls @ 166.67 mls/hr 05/30/24 15:58 05/30/24 17:12 Sodium Chloride IV 05/30/24 17:27 166.67 mls/hr ONCE ONE Administration Cefazolin Sodium/Dextrose 2 gm in 50 mls @ 100 mls/hr 05/30/24 16:00 05/30/24 17:13 Ancef IV 05/30/24 16:29 Infused ONCE ONE Infusion Medical Decision Making Medical Decision Making [facility] Narrative: The patient is a very pleasant 63-year-old woman who seems to have developed an abdominal wall cellulitis following an umbilical repair surgery. The patient was seen in the emergency room by Dr. Frank who performed the surgery. He thinks this is cellulitis rather than a more significant surgical complication. Her labs are unremarkable. She does not seem toxic or in distress. The patient will therefore be started on antibiotics in the emergency room. She received 2 g of cefazolin and 100 mg of doxycycline IV. She will be discharged with a prescriptions for cephalexin and oral doxycycline. She will follow up promptly with Dr. Frank. Lab Data 05/30/24 13:17 05/30/24 13:17 Labs: Lab Results 05/30/24 05/30/24 Range/Units 13:17 16:16 WBC 6.0 (4.8-10.8) X10*3/uL RBC 4.49 (4.20-5.50) X10*6/uL Hgb 14.6 (12.0-16.0) g/dl Hct 42.3 (37.0-47.0) % MCV 94.2 (80.0-98.0) fL MCH 32.5 (27.0-33.0) pg MCHC 34.5 (31.0-35.0) g/dl RDW 14.3 (11.0-16.0) % Plt Count 269 (160-400) X10*3/uL MPV 9.7 (9.4-12.3) fL Immature Gran % (Auto) 0.2 (0.0-0.4) % Neut % (Auto) 46.6 (45-73) % Lymph % (Auto) 41.4 H (20-40) % Kershaw % (Auto) 8.3 (2-11) % Eos % (Auto) 2.8 (0-4) % Baso % (Auto) 0.7 (0-2) % Lymph # (Auto) 2.5 (1.2-4.9) X10*3/uL Kershaw # (Auto) 0.5 (0.1-1.2) X10*3/uL Eos # (Auto) 0.2 (0.0-0.4) X10*3/uL Baso # (Auto) 0.0 (0.0-0.2) X10*3/uL Abs Immat Gran (auto) 0.01 (0.00-0.03) X10*3/uL Absolute Neuts (auto) 2.8 (2.0-8.3) x10*3/uL Absolute Nucleated RBC 0.000 (0.0-0.012) X10*3/uL Nucleated RBC % (auto) 0.0 (0.0-0.2) /100WBC ESR 28 H (0-20) MM/HR Sodium 142 (135-145) mmol/L Potassium 3.4 (3.3-5.1) mmol/L Chloride 112 H (96-108) mmol/L Carbon Dioxide 23 (22-29) mmol/L Anion Gap 10 L (12-20) BUN 11 (9-16) mg/dL Creatinine 0.75 (0.5-1.4) mg/dL Estim Creat Clear Calc 84.4 Estimated GFR > 60 POC Glucose 105 (60-115) mg/dL Random Glucose 133 H (60-115) mg/dL Lactic Acid 0.8 (0.5-2.0) mmol/L Calcium 8.8 (8.4-10.2) mg/dL Total Bilirubin 0.5 (0.0-1.0) mg/dL AST 197 H (5-31) U/L ALT 243 H (0-31) U/L Alkaline Phosphatase 164 H (39-117) U/L C-Reactive Protein 2.28 H (< or = 0.50) mg/dL Total Protein 7.6 (6.5-8.0) g/dL Albumin 3.7 (3.5-5.0) g/dL Discharge Plan Discharge Clinical Impression: Abdominal wall cellulitis Patient Disposition: Home, Self-Care Additional Instructions: Prescriptions for antibiotics has been sent to the pharmacy at the [facility]. Please flower buncher or picker these antibiotics first thing in the morning and take them as directed. Also please call Dr. Frank's office in the morning for a follow up appointment. I believe he expects you to call his office and I think he will probably get you in tomorrow for a recheck. Continue your other medications. Return to the emergency room if you feel significantly worse. Prescriptions: New cephalexin 500 mg capsule 500 mg PO QID 8 Days Qty: 32 0RF doxycycline monohydrate 100 mg capsule 100 mg PO BID 8 Days Qty: 16 0RF No Action (DME) blood-glucose meter [FreeStyle Flash System] Kit See Rx Instructions .Route Qty: 1 0RF Rx Instructions: As directed (DME) pen needle, diabetic [UltiCare Pen Needle] 32 gauge x 5/32 needle See Rx Instructions .ROUTE .COMPLEX Qty: 100 5RF Dose Instruction: USE FOUR TIMES DAILY Rx Instructions: USE FOUR TIMES DAILY gabapentin 400 mg capsule 400 mg PO BEDTIME Qty: 30 4RF levothyroxine 75 mcg tablet 75 mcg PO QAM Qty: 90 4RF omalizumab 150 mg recon soln 300 mg subcut Q2W 28 Days Qty: 4 11RF Rx Instructions: requires multiple injection sites; do not exceed 150 mg per injection site [facility] sofatutor [facility] 10 billion cell -200 mg capsule, sprinkle 1 cap PO DAILY Qty: 30 6RF albuterol sulfate [Ventolin HFA] 90 mcg/actuation HFA aerosol inhaler 2 puff inhalation Q4-6H PRN (Reason: for wheezing) Qty: 18 6RF docusate sodium [Stool Softener] 100 mg capsule 100 mg PO BID Qty: 60 6RF omeprazole 20 mg capsule,delayed release(DR/EC) 20 mg PO BID Qty: 60 6RF Spiriva with HandiHaler 18 mcg capsule, w/inhalation device 1 cap inhalation DAILY Qty: 30 6RF (DME) FreeStyle Lite Strips Strip See Rx Instructions .ROUTE .COMPLEX Qty: 100 5RF Dose Instruction: TEST BLOOD SUGAR FOUR TIMES DAILY Rx Instructions: TEST BLOOD SUGAR FOUR TIMES DAILY (DME) lancets [TRUEplus Lancets] 33 gauge misc See Rx Instructions .ROUTE .COMPLEX Qty: 100 5RF Dose Instruction: TEST BLOOD SUGAR FOUR TIMES DAILY Rx Instructions: TEST BLOOD SUGAR FOUR TIMES DAILY (DME) FreeStyle Jalil 3 Mcgregor Misc See Rx Instructions .MEDSUPPLY Qty: 1 0RF Rx Instructions: Use daily As directed to monitor blood glucose (DME) FreeStyle Jalil 3 Plus Sensor Device See Rx Instructions .MEDSUPPLY Qty: 2 5RF Rx Instructions: Use daily As directed to monitor glucose Ozempic 0.25 mg or 0.5 mg (2 mg/3 mL) pen injector 0.5 mg subcut SA Qty: 3 4RF Patient Comments: patient takes every Friday metoclopramide HCl 5 mg tablet 5 mg PO TID Qty: 90 6RF sennosides [senna] 8.6 mg tablet 17.2 mg PO BEDTIME Qty: 60 6RF Certavite-Antioxidant 18-400 mg-mcg Tablet 1 tab PO DAILY atorvastatin 80 mg tablet 80 mg PO BEDTIME cetirizine 10 mg tablet 10 mg PO QPM enalapril maleate 20 mg tablet 20 mg PO DAILY amlodipine 10 mg tablet 10 mg PO BEDTIME ipratropium-albuterol 0.5 mg-3 mg(2.5 mg base)/3 mL solution for nebulization 3 ml inhalation Q6H PRN (Reason: Shortness Of Breath Or Wheezing) clonazepam 1 mg tablet 0.5 mg PO BEDTIME PRN (Reason: Sleep) fluticasone propionate 50 mcg/actuation spray,suspension 2 spray intranasal QAM risperidone 0.5 mg tablet 0.5 mg PO BID Combivent Respimat 20-100 mcg/actuation mist 1 puff INHALATION BID MDD 6 puffs per day PRN (Reason: Shortness Of Breath Or Wheezing) lidocaine 5 % adhesive patch,medicated 1 patch topical DAILY PRN (Reason: Pain) Rx Instructions: leave on most painful area for up to 12 hrs Trulance 3 mg tablet 3 mg PO BEDTIME hydrocodone-acetaminophen 5-325 mg tablet 1 tab PO Q4-6H PRN (Reason: pain) Qty: 30 0RF Rx Instructions: Partial Fill upon patient request. montelukast 10 mg tablet 10 mg PO BEDTIME clonazepam [Klonopin] 1 mg tablet 1 mg PO DAILY Rx Instructions: administer 30 minutes before bedtime (DME) Knee Support Brace Misc See Rx Instructions .ROUTE .MEDSUPPLY Qty: 2 0RF Rx Instructions: As directed zolpidem 10 mg tablet 10 mg PO BEDTIME PRN (Reason: Insomnia) potassium chloride 20 mEq tablet,ER particles/crystals 20 meq PO BID acetaminophen 325 mg tablet 650 mg PO Q6H PRN (Reason: pain) tramadol 50 mg tablet 50 mg PO Q12H PRN (Reason: Pain) insulin lispro [Humalog KwikPen Insulin] 100 unit/mL insulin pen 4 unit subcut TID PRN (Reason: Hyperglycemia) Rx Instructions: use as directed with meals buspirone 15 mg tablet 15 mg PO TID meclizine 25 mg tablet 25 mg PO TID PRN (Reason: Dizziness) Referrals: Yaniv Frank MD [Physician] - (post-op cellulitis) Print Language: Telugu
[2024-05-30 12:40] VITALS: BP 148/98; PULSE 82; RESP 18; TEMP 36.7; O2SAT 95; BMI 32.5
[2024-05-30 13:25] LABS: MANUAL DIFF FLAG NO
[2024-05-30 13:27] LABS: Basophils Percent Auto 0.7 % (0-2); Eosinophils Absolute Auto 0.2 X10*3/uL (0.0-0.4); Eosinophils Percent Auto 2.8 % (0-4); Hematocrit 42.3 % (37.0-47.0); Hemoglobin 14.6 g/dl (12.0-16.0); Imm Gran Abs Auto 0.01 X10*3/uL (0.00-0.03); Imm Gran Pct Auto 0.2 % (0.0-0.4); Lymphocytes Absolute Auto 2.5 X10*3/uL (1.2-4.9); Lymphocytes Percent Auto 41.4 % (20-40); Mean Corpuscular HGB Conc 34.5 g/dl (31.0-35.0); Mean Corpuscular Hemoglobin 32.5 pg (27.0-33.0); Mean Corpuscular Volume 94.2 fL (80.0-98.0); Mean Platelet Volume 9.7 fL (9.4-12.3); Monocytes Absolute Auto 0.5 X10*3/uL (0.1-1.2); Monocytes Percent Auto 8.3 % (2-11); Neutrophils Absolute Auto 2.8 x10*3/uL (2.0-8.3); Neutrophils Percent Auto 46.6 % (45-73); Platelet Count 269 X10*3/uL (160-400); Red Blood Count 4.49 X10*6/uL (4.20-5.50); Red Cell Distribution Width 14.3 % (11.0-16.0)
[2024-05-30 13:48] LABS: Alanine Aminotransferase 243 U/L (0-31); Albumin Level 3.7 g/dL (3.5-5.0); Alkaline Phosphatase 164 U/L (39-117); Anion Gap 10 (12-20); Aspartate Amino Transferase 197 U/L (5-31); Bilirubin Total 0.5 mg/dL (0.0-1.0); Blood Urea Nitrogen 11 mg/dL (9-16); C Reactive Protein 2.28 mg/dL (< or = 0.50); Calcium 8.8 mg/dL (8.4-10.2); Carbon Dioxide 23 mmol/L (22-29); Chloride 112 mmol/L (96-108); Creatinine Clr Calc Pharmacy 84.4; Estimated Glomerular Filt Rate > 60; Glucose Random 133 mg/dL (60-115); Potassium 3.4 mmol/L (3.3-5.1); Sodium 142 mmol/L (135-145); Total Protein 7.6 g/dL (6.5-8.0)
[2024-05-30 13:49] LABS: Lactic Acid 0.8 mmol/L (0.5-2.0)
[2024-05-30 14:15] LABS: Erythrocyte Sedimentation Rate 28 MM/HR (0-20)
[2024-05-30 14:39] VITALS: BP 135/87; PULSE 74; RESP 14; TEMP 36.5; O2SAT 96
[2024-05-30 16:19] LABS: Glucose, Whole Blood 105 mg/dL (60-115)
[2024-05-30] MEDS: ceFAZolin Sodium/Dextrose,Iso 2 GM/50 ML PIGGYBACK IV (16:50)
[2024-05-30] MEDS: Doxycycline Hyclate 100 MG in 0.9 % Sodium Chloride 250 ML 166.67 MG IV (17:12)
[2024-05-30 17:23] VITALS: BP 134/85; PULSE 75; RESP 14; O2SAT 96
[2024-05-30 18:45] VITALS: BP 130/85; PULSE 72; RESP 14; O2SAT 94
[2024-05-30 19:15] VITALS: BP 130/85; PULSE 72; RESP 14; TEMP 36.7; O2SAT 94
== END 2024-05-30 19:34 | disposition home or self-care (01) ==
PROVIDERS: Registered Nurse Emergency; Emergency Provider Emergency Medicine; PCP Nurse Practitioner Primary Care
DX: L03.311 Cellulitis of abdominal wall (principal)
CPT/HCPCS: 36415; 80053; 82947; 83605; 85025; 85652; 86140; 87040; 96365; 96366; 96367; 99283; 99284; J0690

== ENCOUNTER 2024-05-31 12:56 | Outpatient (AMB) | payer OTHER, SELFPAY ==
--- NOTE | 2024-05-31 12:57 | MHC.OFFVIS ---
Vital Signs 05/31/24 13:05 Weight 197 lb BP 124/77 Blood Pressure Location Rt brachial Position Sitting Pulse 99 Intake Visit Reasons: pain at hernia surg site Intake Note: Patient scheduled today's appointment c/o severe pain at surgical site. HX: open umbilical herniorrhaphy with Bard mesh~ 05-27-2024 Patient states area is red, inflamed, tender to touch. Chairman & Ceo Required: No Accompanied by: Self / Same As Patient Allergies Fish Containing Products Allergy (Intermediate, Verified 05/31/24 13:04) Swelling vancomycin Allergy (Intermediate, Verified 05/31/24 13:04) Rash aspirin [Aspirin] Allergy (Mild, Verified 05/31/24 13:04) ITCHY THROAT azithromycin Allergy (Unknown, Verified 05/31/24 13:04) Unknown naproxen Allergy (Unknown, Verified 05/31/24 13:04) Unknown simvastatin Allergy (Unknown, Verified 05/31/24 13:04) Unknown onion [ONION] Adverse Reaction (Mild, Verified 05/31/24 13:04) RED FACE HPI Comments Details: Patient presents here status post ER visit yesterday for question of infraumbilical abdominal wall cellulitis. Patient was feeling better. She was given antibiotics and presents here for follow-up. She is tolerating her diet. He is having regular bowel habits. [facility] Medical History (Updated 05/31/24 @ 00:00 by Background Daemon) Arthritis Thyroid disease Bilateral renal cysts Right bundle branch block Dental calculus Depression Varicose veins of left lower extremity Ectatic aorta Paresthesia Paresis of one side of face Neck pain Insomnia disorder, with non-sleep disorder mental comorbidity Increased immunoglobulin Constipation Aneurysm of left internal carotid artery Abnormal ultrasound of kidney Type 2 diabetes mellitus History of kidney stones Abnormal finding on ultrasound Tear of medial meniscus of left knee Leg pain Kidney stone on left side MOCK (dyspnea on exertion) Patellofemoral arthritis of left knee Trochanteric bursitis of right hip COVID-19 Carpal tunnel syndrome of right wrist Renal calculi UTI (urinary tract infection) Allergic rhinitis Anxiety and depression Fibromyalgia HTN (hypertension) PTSD (post-traumatic stress disorder) Preop pulmonary/respiratory exam Vertigo Diabetes Asthma Chest pain Tubular adenoma of colon Vulvovaginitis Acute asthma exacerbation Candidiasis of mouth and esophagus Bronchitis Spondylosis of cervical region without myelopathy or radiculopathy Bronchitis COPD exacerbation Yeast infection Papanicolaou smear for cervical cancer screening Bilateral hand pain Bilateral knee pain Low vitamin D level Dry mouth Environmental allergies Severe persistent asthma Non-toxic multinodular goiter Hypothyroidism Type 2 diabetes mellitus with hyperglycemia DVT (deep venous thrombosis) Menopausal state Cocaine abuse Surgical History Hx of carpal tunnel repair History of esophagogastroduodenoscopy (EGD) H/O colonoscopy with polypectomy History of selective injection of anesthetic agent around lumbar nerve root Hx of right breast biopsy History of hysterectomy History of lithotripsy Family History Father No problems noted. 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 Patient was infraumbilical area of edema and ecchymosis. Not warm to the touch. Assessment & Plan Assessment & Plan (1) Abdominal wall cellulitis: Code(s): L03.311 - Cellulitis of abdominal wall Category: Surgical Plan Patient was is being treated for abdominal wall cellulitis. She has continued antibiotic course and local wound care. She will see me in 1 week's time for follow-up or p.r.n.. All questions answered Coding Level of Care Code Est Pt Level 3 (07685) Global (72626) Diagnoses Abdominal wall cellulitis L03.311
[2024-05-31 13:05] VITALS: BP 124/77; PULSE 99
--- OUTSIDE RECORDS SUMMARY | 2024-05-31 14:49 | XMS_ITS | Encounter Summary ---
Author Organization [facility] Address [address] [place] [address] Care Team Providers Care Sales And Marketing Intern Name Role Phone Sariah Vickers Primary Care Provider [phone] Yuri Pierre PharmD Unavailable [phone] Basilio Hall MD Unavailable [phone] Ron Preciado MD Unavailable [phone] Reason for Visit * Reason Comments Med Refill Encounter Details Date Type Department Care Team (Late st Contact Info) Description 02/06/2022 Refill [facility] [address] [place] [address] Sariah Vickers ANP [address] [place] [address] Social History Tobacco Use Types Packs/Day Years [...] Description 07/02/2024 11:00 AM EDT Clinical Support [address] [address] Azeb Hall, RN [address] [place] [address] 07/15/2024 1:00 PM EDT Office Visit [address] [address] Sariah Vickers ANP [address] [place] [id number] 08/04/2024 10:00 AM EDT Medication Management [address] [address] Yuri Pierre, Dileep [address] [place] [id number] 08/04/2024 1:00 PM EDT Office Visit [facility] [address] [place] [id number] Felicia, Nuvia [address] [place] [address] documented as of this encounter Visit Diagnoses Not on filedocumented in this encounter Care Teams Sales And Marketing Intern Relationship Specialty Start Date End Date Sariah Vickers ANP [address] [place] [id number] PCP - General Family Medicine 09/23/19 Yuri Pierre, PharmD [address] [place] [id number] Pharmacist Internal Medicine 05/05/24 Basilio Hall MD [address] [place] [address] Cardiology 05/17/24 Ron Preciado MD [address] [place] [id number] Pulmonary Disease 05/17/24 documented as of this encounter
--- OUTSIDE RECORDS SUMMARY | 2024-05-31 14:49 | XMS_ITS | Encounter Summary ---
Author Organization [facility] [facility] Address 75 [facility] 7t [place] [address] Care Team Providers Care Family Life Counselor Name Role Phone Sariah Vickers Primary Care Provider [phone] Yuri Pierre PharmD Unavailable [phone] Basilio Hall MD Unavailable [phone] Ron Preciado MD Unavailable [phone] Encounter Details Date Type Department Care Team (Late st Contact Info) Description 02/05/2022 Abstract [facility] 230 [place] [address] Sariah Vickers ANP 230 [place] [address] Social History Tobacco Use Types Packs/Day Years [...] 07/02/2024 11:00 AM EDT Clinical Support [address] [address] Azeb Hall, RN 505 [place] [address] 07/15/2024 1:00 PM EDT Office Visit [address] [address] Sariah Vickers ANP [address] [place] [address] 08/04/2024 10:00 AM EDT Medication Management [address] [address] Yuri Pierre, Dileep [address] [place] [address] 08/04/2024 1:00 PM EDT Office Visit [facility] [address] [place] [address] FeliciaBrendanNuvia [address] [place] [address] documented as of this encounter Visit Diagnoses Not on filedocumented in this encounter Care Teams Family Life Counselor Relationship Specialty Start Date End Date Sariah Vickers ANP [address] [place] [address] PCP - General Family Medicine 09/23/19 Yuri Pierre, PharmD [address] [place] [address] Pharmacist Internal Medicine 05/05/24 Basilio Hall MD 596 [place] [address] Cardiology 05/17/24 Ron Preciado MD [address] [place] [address] Pulmonary Disease 05/17/24 documented as of this encounter
--- OUTSIDE RECORDS SUMMARY | 2024-05-31 14:49 | XMS_ITS | Encounter Summary ---
Author Organization [employer] [facility] Address 75 [facility] 7t [place] [address] Care Team Providers Care Food Sampler Name Role Phone Sariah Vickers Primary Care Provider [phone] Yuri Pierre PharmD Unavailable [phone] Basilio Hall MD Unavailable [phone] Ron Preciado MD Unavailable [phone] Reason for Visit * Reason Onset Date Comments Durable Medical Equipment 03/15/2022 Encounter Details Date Type Department Care Team (Late st Contact Info) Description 03/15/2022 Telephone [facility] 230 [place] [address] Sariah Vickers ANP 230 [place], [place] [phone] Durable Medical Equipment Social History Tobacco Use [...] Description 07/02/2024 11:00 AM EDT Clinical Support [address] [address] Azeb Hall, RN 505 [place] [address] 07/15/2024 1:00 PM EDT Office Visit [facility] [address] [place] [address] Sariah Vickers ANP 230 [place] [address] 08/04/2024 10:00 AM EDT Medication Management [facility] [address] [place] [address] Yuri Pierre, PharmD 230 [place] [address] 08/04/2024 1:00 PM EDT Office Visit [facility] [address] [place] [address] Nuvia Duarte 230 [place] [address] documented as of this encounter Visit Diagnoses Not on filedocumented in this encounter Care Teams Food Sampler Relationship Specialty Start Date End Date Sariah Vickers ANP [address] [place] [address] PCP - General Family Medicine 09/23/19 Yuri Pierre, MikeD 230 [place] [address] Pharmacist Internal Medicine 05/05/24 Basilio Hall MD 596 [place] [address] Cardiology 05/17/24 Ron Preciado MD [address] [place] [address] Pulmonary Disease 05/17/24 documented as of this encounter
--- OUTSIDE RECORDS SUMMARY | 2024-05-31 14:49 | XMS_ITS | Encounter Summary ---
Author Organization [employer] Address 75 [facility] 7t [place] [address] Care Team Providers Care Residential Installer Name Role Phone Sariah Vickers Primary Care Provider Yuri Pierre PharmD Unavailable [phone] Basilio Hall MD Unavailable [phone] Ron Preciado MD Unavailable [phone] Reason for Visit * Reason Comments Med Refill Encounter Details Date Type Department Care Team (Late st Contact Info) Description 09/13/[address] [facility] MED & PEDS [address] [place] [address] Sariah Vickers, ANP 230 [place] [address] Severe persistent allergic asthma without complication Social [...] Description 07/02/2024 11:00 AM EDT Clinical Support [address] [address] Azeb Hall RN 505 [place] [address] 07/15/2024 1:00 PM EDT Office Visit [facility] MEDICINE [address] [place] [address] Sariah Vickers ANP [address] [place] [address] 08/04/2024 10:00 AM EDT Medication Management [address] [address] Yuri Pierre, Dileep [address] [place] [address] 08/04/2024 1:00 PM EDT Office Visit [facility] ADULT DENTAL [address] [place] [address] Felicia, Nuvia [address] [place] [address] documented as of this encounter Visit Diagnoses Diagnosis Severe persistent allergic asthma without complication documented in this encounter Care Teams Residential Installer Relationship Specialty Start Date End Date Sariah Vickers ANP [address] [place] [address] PCP - General Family Medicine 09/23/19 Yuri Pierre, PharmD [address] [place] [address] Pharmacist Internal Medicine 05/05/24 Basilio Hall MD 596 [place] [address] Cardiology 05/17/24 Ron Preciado MD [address] [place] [address] Pulmonary Disease 05/17/24 documented as of this encounter
--- OUTSIDE RECORDS SUMMARY | 2024-05-31 14:49 | XMS_ITS | Encounter Summary ---
Author Organization [employer] [facility] Address 75 [facility] 7t [place] [address] Care Team Providers Care Analysis Or Research Safety Inspector Name Role Phone Sariah Vickers Primary Care Provider [phone] Yuri Pierre PharmD Unavailable [phone] Basilio Hall MD Unavailable [phone] Ron Preciado MD Unavailable [phone] Encounter Details Date Type Department Care Team (Latest Contact Info) Description 06/20/2021 Abstract [facility] CONVERSIONS Dental, Provider, DDS Social [...] Description 07/02/2024 11:00 AM EDT Clinical Support [facility] MED[facility] [address] [place] [address] Azeb Hall RN 505 [place] [address] 07/15/2024 1:00 PM EDT Office Visit [facility] [address] [place] [address] Sariah Vickers ANP [address] [place] [address] 08/04/2024 10:00 AM EDT Medication Management [facility] 230 [place] [address] Yuri Pierre, PharmBear 230 [place] [address] 08/04/2024 1:00 PM EDT Office Visit [facility] ADULT DENTAL 230 [place] [address] Nuvia Duarte 230 [place] [address] documented as of this encounter Visit Diagnoses Not on filedocumented in this encounter Care Teams Analysis Or Research Safety Inspector Relationship Specialty Start Date End Date Sariah Vickers ANP [address] [place] [address] PCP - General Family Medicine 09/23/19 Yuri Pierre, PharmD [address] [place] [address] Pharmacist Internal Medicine 05/05/24 Basilio Hall MD [address] [place] [address] Cardiology 05/17/24 Ron Preciado MD [address] [place] [address] Pulmonary Disease 05/17/24 documented as of this encounter
--- OUTSIDE RECORDS SUMMARY | 2024-05-31 14:49 | XMS_ITS | Encounter Summary ---
Author Organization [employer] Address 75 [facility] 7t [place] [address] Care Team Providers Care Electrical Construction Project Manager Name Role Phone Sariah Vickers Primary Care Provider [phone] Yuri Pierre PharmD Unavailable [phone] Basilio Hall MD Unavailable [phone] Ron Preciado MD Unavailable [phone] Reason for Visit * Reason Comments Med Refill Encounter Details Date Type Department Care Team (Late st Contact Info) Description 10/03/2023 Refill [facility] 230 [place], [place] [phone] Sariah Vickers ANP 230 [place], [place] [phone] Chronic SI joint pain Social History Tobacco [...] EDT Clinical Support [facility] [address] [place] [address] Azeb Hall, MARTIN 505 [place] [address] 07/15/2024 1:00 PM EDT Office Visit [facility] [address] [place] [address] Sariah Vickers, ANP 230 [place] [address] 08/04/2024 10:00 AM EDT Medication Management [facility] [address] [place] [address] Yuri Pierre, PharmD [address] [place] [address] 08/04/2024 1:00 PM EDT Office Visit [facility]ULT [facility] [address] [place] [address] Nuvia Duarte 230 [place] [address] documented as of this encounter Goals Goal [...] as of this encounter Care Teams Electrical Construction Project Manager Relationship Specialty Start Date End Date Sariah Vickers ANP 230 [place] [address] PCP - General Family Medicine 09/23/19 Yuri Pierre PharmD [address] [place] [address] Pharmacist Internal Medicine 05/05/24 Basilio Hall MD [address] [place] [address] Cardiology 05/17/24 Ron Preciado MD [address] [place] [address] Pulmonary Disease 05/17/24 documented as of this encounter
--- OUTSIDE RECORDS SUMMARY | 2024-05-31 14:49 | XMS_ITS | Encounter Summary ---
Author Organization [employer] [facility] Address 75 [facility] 7t [place] [address] Care Team Providers Care Visual Supervisor Name Role Phone Sariah Vickers Primary Care Provider Yuri Pierre PharmD Unavailable [phone] Basilio Hall MD Unavailable [phone] Ron Preciado MD Unavailable [phone] Encounter Details Date Type Department Care Team (Late st Contact Info) Description 01/09/2022 Abstract [facility] 230 [place] [address] Dental, Provider, DDS Social History Tobacco Use [...] Description 07/02/2024 11:00 AM EDT Clinical Support [facility] [address] [place] [address] Azeb Hall RN 505 [place] [address] 07/15/2024 1:00 PM EDT Office Visit [facility] [address] [place] [address] Sariah Vickers ANP 230 [place] [address] 08/04/2024 10:00 AM EDT Medication Management [facility] 230 [place] [address] Yuri Pierre, Dileep 230 [place] [address] 08/04/2024 1:00 PM EDT Office Visit [facility] 230 [place] [address] FeliciaNuvia 230 [place] [address] documented as of this encounter Procedures Procedure [...] on filedocumented in this encounter Care Teams Visual Supervisor Relationship Specialty Start Date End Date Sariah Vickers ANP 230 [place] [address] PCP - General Family Medicine 09/23/19 Yuri Pierre, MikeD 230 [place] [address] Pharmacist Internal Medicine 05/05/24 Basilio Hall MD [address] [place] [address] Cardiology 05/17/24 Ron Preciado MD [address] [place] [address] Pulmonary Disease 05/17/24 documented as of this encounter
--- OUTSIDE RECORDS SUMMARY | 2024-05-31 14:49 | XMS_ITS | Encounter Summary ---
Author Organization [employer] Address 75 [facility] 7t [place] [address] Care Team Providers Care Computer Forensics Analyst Name Role Phone Sariah Vickers Primary Care Provider [phone] Yuri Pierre PharmD Unavailable [phone] Basilio Hall MD Unavailable [phone] Ron Preciado MD Unavailable [phone] Reason for Visit * Reason Comments Med Refill Encounter Details Date Type Department Care Team (Late st Contact Info) Description 03/09/2024 Refill [facility] P[facility]S [address] [place] [address] Sariah Vickers, KAYLEE 230 [place] [address] Neck pain Social History Tobacco Use Types [...] AM EDT Clinical Support [facility] [address] [place] [address] Azeb Hall, MARTIN 505 [place] [address] 07/15/2024 1:00 PM EDT Office Visit [facility] [address] [place] [address] Sariah Vickers ANP 230 [place] [address] 08/04/2024 10:00 AM EDT Medication Management [facility] [address] [place] [address] Yuri Pierre, PharmD [address] [place] [address] 08/04/2024 1:00 PM EDT Office Visit [facility] [address] [place] [address] Nuvia Duarte 230 [place] [address] documented as of this encounter Goals Goal [...] as of this encounter Care Teams Computer Forensics Analyst Relationship Specialty Start Date End Date Sariah Vickers ANP 230 [place] [address] PCP - General Family Medicine 09/23/19 Yuri Pierre, MikeD [address] [place] [address] Pharmacist Internal Medicine 05/05/24 Basilio Hall MD [address] [place] [address] Cardiology 05/17/24 Ron Preciado MD [address] [place] [address] Pulmonary Disease 05/17/24 documented as of this encounter
--- OUTSIDE RECORDS SUMMARY | 2024-05-31 14:49 | XMS_ITS | Encounter Summary ---
Author Organization [employer] [facility] Address 75 [facility] 7t [place] [address] Care Team Providers Care Computer Mechanic Name Role Phone Sariah Vickers Primary Care Provider [phone] Yuri Pierre PharmD Unavailable [phone] Basilio Hall MD Unavailable [phone] Ron Preciado MD Unavailable [phone] Reason for Visit * Reason Onset Date Comments Med Refill 09/18/2023 Encounter Details Date Type Department Care Team (Late st Contact Info) Description 09/18/2023 Telephone [facility] 230 [place], [place] [phone] Sariah Vickers ANP 230 [place], [place] [phone] Med Refill Social History Tobacco Use Types [...] refill : Tramadol To be sent to: [facility] - [place], [place] - [address] [place] [address] documented in this encounter Plan of Treatment Upcoming Encounters Date Type Department Care Team ([facility] st Contact Info) Description 07/02/2024 11:00 AM EDT Clinical Support [facility] MED[facility]INE [address] [place] [address] Azeb Hall RN 505 [place] [address] 07/15/2024 1:00 PM EDT Office Visit [address] [address] Sariah Vickers ANP [address] [place] [address] 08/04/2024 10:00 AM EDT Medication Management [address] [address] Yuri Pierre, Dileep 230 [place] [address] 08/04/2024 1:00 PM EDT Office Visit [facility] ADULT DENTAL 230 [place] [address] Nuvia Duarte 230 [place] [address] documented as of this encounter Goals Goal [...] as of this encounter Care Teams Computer Mechanic Relationship Specialty Start Date End Date Sariah Vickers ANP 230 [place] [address] PCP - General Family Medicine 09/23/19 Yuri Pierre, PharmD 230 [place] [address] Pharmacist Internal Medicine 05/05/24 Basilio Hall MD 596 [place] [address] Cardiology 05/17/24 Ron Preciado MD [address] [place] [address] Pulmonary Disease 05/17/24 documented as of this encounter
--- OUTSIDE RECORDS SUMMARY | 2024-05-31 14:49 | XMS_ITS | Encounter Summary ---
Author Organization [employer] [facility] Address 75 [facility] 7t [place] [address] Care Team Providers Care Neurosurgery Research Director Name Role Phone Sariah Vickers Primary Care Provider [phone] Yuri Pierre PharmD Unavailable [phone] Basilio Hall MD Unavailable [phone] Ron Preciado MD Unavailable [phone] Encounter Details Date Type Department Care Team (Latest Contact Info) Description 04/14/2020 Abstract [facility] CONVERSIONS Dental, Provider, DDS Social [...] 07/02/2024 11:00 AM EDT Clinical Support [facility] MEDICINE [address] [place] [address] Azeb Hall RN 505 [place] [address] 07/15/2024 1:00 PM EDT Office Visit [facility] [address] [place] [address] Sariah Vickers ANP [address] [place] [address] 08/04/2024 10:00 AM EDT Medication Management [facility] MEDICINE 230 [place] [address] Yuri Pierre, PharmBear 230 [place] [address] 08/04/2024 1:00 PM EDT Office Visit [facility] ADULT DENTAL 230 [place] [address] Nuvia Duarte 230 [place] [address] documented as of this encounter Visit Diagnoses Not on filedocumented in this encounter Care Teams Neurosurgery Research Director Relationship Specialty Start Date End Date Sariah Vickers ANP [address] [place] [address] PCP - General Family Medicine 09/23/19 Yuri Pierre, PharmD [address] [place] [address] Pharmacist Internal Medicine 05/05/24 Basilio Hall MD [address] [place] [address] Cardiology 05/17/24 Ron Preciado MD [address] [place] [address] Pulmonary Disease 05/17/24 documented as of this encounter
--- OUTSIDE RECORDS SUMMARY | 2024-05-31 14:49 | XMS_ITS | Encounter Summary ---
Author Organization [employer] [facility] Address 75 [facility] 7t [place] [address] Care Team Providers Care Machine Container Washer Name Role Phone Sariah Vickers Primary Care Provider [phone] Yuri Pierre PharmD Unavailable [phone] Basilio Hall MD Unavailable [phone] Ron Preciado MD Unavailable [phone] Reason for Visit * Reason Comments Med Refill Encounter Details Date Type Department Care Team (Late st Contact Info) Description 03/26/2022 Refill [facility] MEDICINE 230 [place] [address] Sariah Vickers ANP 230 [place] [address] Social History Tobacco Use Types Packs/Day Years [...] 07/02/2024 11:00 AM EDT Clinical Support [address] [address] Azeb Hall, RN 505 [place] [address] 07/15/2024 1:00 PM EDT Office Visit [address] [address] Sariah Vickers ANP [address] [place] [address] 08/04/2024 10:00 AM EDT Medication Management [address] [address] Yuri Pierre, Dileep [address] [place] [address] 08/04/2024 1:00 PM EDT Office Visit [facility] ADULT DENTAL [address] [place] [address] Felicia, Nuvia 230 [place] [address] documented as of this encounter Visit Diagnoses Not on filedocumented in this encounter Care Teams Machine Container Washer Relationship Specialty Start Date End Date Sariah Vickers ANP [address] [place] [address] PCP - General Family Medicine 09/23/19 Yuri Pierre, PharmD [address] [place] [address] Pharmacist Internal Medicine 05/05/24 Basilio Hall MD 5[address] [place] [address] Cardiology 05/17/24 Ron Preciado MD [address] [place] [address] Pulmonary Disease 05/17/24 documented as of this encounter
--- OUTSIDE RECORDS SUMMARY | 2024-05-31 14:49 | XMS_ITS | Encounter Summary ---
Author Organization [employer] [facility] Address 75 [facility] 7t [place] [address] Care Team Providers Care Jewel Bearing Polisher Name Role Phone Sairah Vickers Primary Care Provider [phone] Yuri Pierre PharmD Unavailable [phone] Basilio Hall MD Unavailable [phone] Ron Preciado MD Unavailable [phone] Reason for Visit * Reason Onset Date Comments Med Refill 02/04/2024 Encounter Details Date Type Department Care Team (Late st Contact Info) Description 02/04/2024 Telephone [facility] MEDICINE 230 [place] [address] Sariah Vickers ANP 230 [place], [place] [phone] Med Refill Social History Tobacco Use Types [...] 50 MG tablet To be sent to: [facility] - [place], [place] - [address] [place] [address] documented in this encounter Plan of Treatment Upcoming Encounters Date Type Department Care Team ([facility] st Contact Info) Description 07/02/2024 11:00 AM EDT Clinical Support [facility] MEDICINE [address] [place] [address] Azeb Hall, MARTIN 505 [place] [address] 07/15/2024 1:00 PM EDT Office Visit [facility] MEDICINE [address] [place] [address] Sariah Vickers ANP 230 [place] [address] 08/04/2024 10:00 AM EDT Medication Management [address] [address] Yuri Pierre, MikeD 230 [place] [address] 08/04/2024 1:00 PM EDT Office Visit [facility] ADULT DENTAL 230 [place] [address] Nuvia Duarte 230 [place] [address] documented as of this encounter Goals Goal [...] as of this encounter Care Teams Jewel Bearing Polisher Relationship Specialty Start Date End Date Sariah Vickers ANP 230 [place] [address] PCP - General Family Medicine 09/23/19 Yuri Pierre, PharmD 230 [place] [address] Pharmacist Internal Medicine 05/05/24 Basilio Hall MD 596 [place] [address] Cardiology 05/17/24 Ron Preciado MD [address] [place] [address] Pulmonary Disease 05/17/24 documented as of this encounter
--- OUTSIDE RECORDS SUMMARY | 2024-05-31 14:49 | XMS_ITS | Encounter Summary ---
Author Organization [employer] [facility] Address 75 [facility] 7t [place] [address] Care Team Providers Care Burglar Alarm Mechanic Name Role Phone Sariah Vickers Primary Care Provider [phone] Yuri Pierre PharmD Unavailable [phone] Basilio Hall MD Unavailable [phone] Ron Preciado MD Unavailable [phone] Encounter Details Date Type Department Care Team (Latest Contact Info) Description 05/15/2018 Abstract [facility] CONVERSIONS Dental, Provider, DDS Social History [...] Clinical Support [facility] MEDICINE [address] [place] [address] Azeb Hall RN 505 [place] [address] 07/15/2024 1:00 PM EDT Office Visit [facility] MEDICINE [address] [place] [address] Sariah Vickers ANP [address] [place] [address] 08/04/2024 10:00 AM EDT Medication Management [facility] MED[facility]INE 230 [place] [address] Yuri Pierre, PharmBear 230 [place] [address] 08/04/2024 1:00 PM EDT Office Visit [facility] ADULT DENTAL 230 [place] [address] Nuvia Duarte 230 [place] [address] documented as of this encounter Visit Diagnoses Not on filedocumented in this encounter Care Teams Burglar Alarm Mechanic Relationship Specialty Start Date End Date Sariah Vickers ANP 230 [place] [address] PCP - General Family Medicine 09/23/19 Yuri Pierre, PharmD [address] [place] [address] Pharmacist Internal Medicine 05/05/24 Basilio Hall MD 596 [place] [address] Cardiology 05/17/24 Ron Preciado MD [address] [place] [address] Pulmonary Disease 05/17/24 documented as of this encounter
--- OUTSIDE RECORDS SUMMARY | 2024-05-31 14:49 | XMS_ITS | Encounter Summary ---
Author Organization [facility] Address 75 [facility] 7t [place] [address] Care Team Providers Care Cardiograph Operator Name Role Phone Sariah Vickers Primary Care Provider [phone] Yuri Pierre PharmD Unavailable [phone] Basilio Hall MD Unavailable [phone] Ron Preciado MD Unavailable [phone] Reason for Visit * Reason Comments Med Refill Encounter Details Date Type Department Care Team (Late st Contact Info) Description 08/22/2023 Refill [facility] [address] [place] [address] Sariah Vickers ANP 230 [place] [address] Neck pain Social History Tobacco Use Types [...] Clinical Support [facility] [address] [place] [address] Azeb Hall, RN 505 [place] [address] 07/15/2024 1:00 PM EDT Office Visit [facility] [address] [place] [address] Sariah Vickers, KAYLEE [address] [place] [address] 08/04/2024 10:00 AM EDT Medication Management [facility] [address] [place] [address] Yuri Pierre, PharmD [address] [place] [address] 08/04/2024 1:00 PM EDT Office Visit [facility] ADULT DENTAL [address] [place] [address] Nuvia Duarte [address] [place] [address] documented as of this encounter Goals Goal [...] documented as of this encounter Care Teams Cardiograph Operator Relationship Specialty Start Date End Date Sariah Vickers ANP [address] [place] [address] PCP - General Family Medicine 09/23/19 Yuri Pierre PharmD 230 [place] [address] Pharmacist Internal Medicine 05/05/24 Basilio Hall MD 5[address] [place] [address] Cardiology 05/17/24 Ron Preciado MD [address] [place] [address] Pulmonary Disease 05/17/24 documented as of this encounter
--- OUTSIDE RECORDS SUMMARY | 2024-05-31 14:49 | XMS_ITS | Encounter Summary ---
Author Organization [facility] Address 75 [facility] 7t [place] [address] Care Team Providers Care Director Regulatory Affairs Name Role Phone Sariah Vickers Primary Care Provider [phone] Yuri Pierre PharmD Unavailable [phone] Basilio Hall MD Unavailable [phone] Ron Preciado MD Unavailable [phone] Reason for Visit * Reason Comments Med Refill Encounter Details Date Type Department Care Team (Late st Contact Info) Description 03/03/2022 Refill [facility] [address] [place] [address] Sariah Vickers ANP 230 [place] [address] Social History Tobacco Use Types Packs/Day Years [...] Description 07/02/2024 11:00 AM EDT Clinical Support [address] [address] Azeb Hall RN 505 [place] [address] 07/15/2024 1:00 PM EDT Office Visit [address] [address] Sariah Vickers ANP [address] [place] [address] 08/04/2024 10:00 AM EDT Medication Management [address] [address] Yuri Pierre PharmD [address] [place] [address] 08/04/2024 1:00 PM EDT Office Visit [facility] [address] [place] [address] Felicia, Nuvia [address] [place] [address] documented as of this encounter Visit Diagnoses Not on filedocumented in this encounter Care Teams Director Regulatory Affairs Relationship Specialty Start Date End Date Sariah Vickers ANP [address] [place] [address] PCP - General Family Medicine 09/23/19 Yuri Pierre, PharmD [address] [place] [address] Pharmacist Internal Medicine 05/05/24 Basilio Hall MD 5[address] [place] [address] Cardiology 05/17/24 Ron Preciado MD [address] [place] [address] Pulmonary Disease 05/17/24 documented as of this encounter
--- OUTSIDE RECORDS SUMMARY | 2024-05-31 14:49 | XMS_ITS | Encounter Summary ---
Author Organization [facility] Address [address] [place] [address] 7t [place] [address] Care Team Providers Care Mass Spec Name Role Phone Sariah Vickers Primary Care Provider Yuri Pierre PharmD Unavailable [phone] Basilio Hall MD Unavailable [phone] Ron Preciado MD Unavailable [phone] Reason for Visit * Reason Onset Date Comments Nurse Triage 11/01/2022 Encounter Details Date Type Department Care Team (Late st Contact Info) Description 11/01/2022 Telephone [facility] 230 [place] [address] Sariah Vickers ANP 230 [place] [address] Nurse Triage Social History Tobacco Use Types [...] 11/01/2022 3:51 PM EDT Triage call with [place] [id number] Pt reports blood sugars have been high [...] Support [facility] MED[facility]INE [address] [place] [address] Azeb Hall RN 505 [place] [address] 07/15/2024 1:00 PM EDT Office Visit [facility] [address] [place] [address] Sariah Vickers ANP 230 [place] [address] 08/04/2024 10:00 AM EDT Medication Management [facility] [address] [place] [address] Yuri Pierre PharmD 230 [place] [address] 08/04/2024 1:00 PM EDT Office Visit [facility] ADULT DENTAL 230 [place] [address] Nuvia Duarte 230 [place] [address] documented as of this encounter Goals Goal [...] on filedocumented in this encounter Care Teams Mass Spec Relationship Specialty Start Date End Date Sariah Vickers ANP 230 [place] [address] PCP - General Family Medicine 09/23/19 Yuri Pierre, PharmD 230 [place] [address] Pharmacist Internal Medicine 05/05/24 Basilio Hall MD 5[address] [place] [address] Cardiology 05/17/24 Ron Preciado MD [address] [place] [address] Pulmonary Disease 05/17/24 documented as of this encounter
--- OUTSIDE RECORDS SUMMARY | 2024-05-31 14:50 | XMS_ITS | Encounter Summary ---
Author Organization [employer] Address [address] [facility] 7t [place] [address] Care Team Providers Care Electrical Tests Supervisor Name Role Phone Sariah Vickers KAYLEE Primary Care Provider [phone] Yuri Pierre PharmD Unavailable [phone] Basilio Hall MD Unavailable [phone] Ron Preciado MD Unavailable [phone] Reason for Visit * Reason Comments Med Refill Encounter Details Date Type Department Care Team (Late st Contact Info) Description 03/04/2023 Refill [facility] 230 [place] [address] Brittney Nava MD 230 [place], [place] [phone] Social History Tobacco Use Types Packs/Day Years [...] [facility] [address] [place] [address] Azeb Hall, RN 505 [place] [address] 07/15/2024 1:00 PM EDT Office Visit [facility] [address] [place] [address] Sariah Vickers, ANP 230 [place] [address] 08/04/2024 10:00 AM EDT Medication Management [facility] [address] [place] [address] Yuri Pierre, PharmD [address] [place] [address] 08/04/2024 1:00 PM EDT Office Visit [facility]ULT D[facility]AL [address] [place] [address] Nuvia Duarte 230 [place] [address] documented as of this encounter Goals Goal [...] on filedocumented in this encounter Care Teams Electrical Tests Supervisor Relationship Specialty Start Date End Date Sariah Vickers ANP [address] [place] [address] PCP - General Family Medicine 09/23/19 Yuri Pierre, MikeD [address] [place] [address] Pharmacist Internal Medicine 05/05/24 Basilio Hall MD [address] [place] [address] Cardiology 05/17/24 Ron Preciado MD [address] [place] [address] Pulmonary Disease 05/17/24 documented as of this encounter
--- OUTSIDE RECORDS SUMMARY | 2024-05-31 14:50 | XMS_ITS | Encounter Summary ---
Author Organization [employer] Address [address] [facility] [address] 7t [place] [address] Care Team Providers Care Court Bailiff Or Sheriff Name Role Phone Sariah Vickers KAYLEE Primary Care Provider [phone] Yuri Pierre PharmD Unavailable [phone] Basilio Hall MD Unavailable [phone] Ron Preciado MD Unavailable [phone] Encounter Details Date Type Department Care Team (Late st Contact Info) Description 05/30/2024 Orders Only GENERIC EXTERNAL DATA DEPARTMENT Provider, [...] as of this encounter Miscellaneous Notes * Result Encounter Note - KAYLEE Lopez - 05/30/2024 1:28 PM EDT Please call Nuvia to check on her after emergency room visit yesterday for postop infection. Please also let her know I would like her to stop atorvastatin, her cholesterol medication, and repeat her liver function tests in 4 weeks as her liver function tests at the hospital were very elevated. Please advise her to bring med box to pharmacy to take this out. if we need to, we can use an alternate medication for cholesterol, and the protective effects of her atorvastatin will continue even if she does not take the medication for short time. [facility] and I will ask them to call her for follow-up appointment. documented in this encounter Plan of Treatment Upcoming Encounters Date Type Department Care Team (Late st Contact Info) Description 07/02/2024 11:00 AM EDT Clinical Support [facility] [address] [place] [address] Azeb Hall RN 505 [place] [address] 07/15/2024 1:00 PM EDT Office Visit [facility] 230 [place] [address] Sariah Vickers ANP 230 [place] [address] 08/04/2024 10:00 AM EDT Medication Management [facility] 230 [place] [address] Yuri Pierre PharmD 230 [place] [address] 08/04/2024 1:00 PM EDT Office Visit [facility] ADULT DENT[facility] 230 [place] [address] Felicia, Nuvia 230 [place] [address] documented as of this encounter Goals Goal [...] Procedure Name Priority Date/Time Associated Diagnosis Comments GLUCOSE, WHOLE BLOOD Routine 05/30/2024 4:16 PM EDT CBC WITH AUTO DIFFERENTIAL Routine 05/30/2024 1:17 PM EDT SED RATE BY MODIFIED WESTERGREN Routine 05/30/2024 1:17 PM EDT C-REACTIVE PROTEIN Routine 05/30/2024 1: 17 PM EDT LACTIC ACID Routine 05/30/2024 1:17 PM EDT COMPREHENSIVE METABOLIC PANEL Routine 05/30/2024 1:17 PM EDT documented in this encounter Results * Glucose, Whole Blood (05/30/2024 4:16 PM EDT) Glucose, Whole Blood 105 60 - 115 mg/dL [facility] Comment:METER #: [id number] 05/30/2024 4:16 PM EDT 05/30/2024 4:19 PM EDT Generic External Data Provider LAB BLOOD ORDERAB LES Final Result Performing Organization Address City/[facility]/ZIP Co de Phone Number [facility] [address] [place] [phone] * (ABNORMAL) Sed Rate by Modified Westergren (05/30/2024 1:17 PM EDT) Erythrocyte Sedimentation Rate 28(H) 0 - 20 MM/HR [facility] Comment:Patients with polycy themia and many hemoglobin abnormalitiesmay have depressed sed rates whereas patients with anemiamay have elevated sed rates. 05/30/2024 1:17 PM EDT 05/30/2024 1:23 PM EDT Generic External Data Provider LAB BLOOD ORDERAB LES Final Result Performing Organization Address [facility]/ZIP Co de Phone Number [facility] [address] [place] [phone] * Lactic Acid (05/30/2024 1:17 PM EDT) Lactic Acid 0.8 0.5 - 2.0 mmol/L [facility] 05/30/2024 1:17 PM EDT 05/30/2024 1:31 PM EDT Generic External Data Provider LAB BLOOD ORDERAB LES Final Result Performing Organization Address [facility] Co de Phone Number [facility] [address] [place] [address] [phone] * (ABNORMAL) C-reactive Protein (05/30/2024 1:17 PM EDT) C Reactive Protein 2.28(H) < or = 0.50 mg/dL [facility] 05/30/2024 1:17 PM EDT 05/30/2024 1:23 PM EDT us Generic External Data Provider LAB BLOOD ORDERAB LES Final Result [facility] [address] [place] [address] [phone] * (ABNORMAL) Comprehensive Metabolic Panel (05/30/2024 1:17 PM EDT) Sodium 142 135 - 145 mmol/L [facility] Potassium 3.4 3.3 - 5.1 mmol/L [facility] Chloride 112(H) 96 - 108 mmol/L [facility] Carbon Dioxide 23 22 - 29 mmol/L [facility] Anion Gap 10(L) 12 - 20 [facility] Urea Nitrogen (BUN) 11 9 - 16 mg/dL [facility] Creatinine, Serum 0.75 0.5 - 1.4 mg/dL [facility] Creatinine Clr Calc Pharmacy 84.4 [facility] Comment:Provided height and weight: 165.1 cm,88.6 kg.eGFR (calculated from the MDRD study equation) and eCrCl(calculated from the Cockcroft-Gault equation) are based ondifferent parameters and may not yield comparable results.If eCrCl result is absurd, please check patient'sheight/weight. Estimated Glomerular Filt Rate >60 [facility] Comment:Chronic Kidney Disea se: Estimated GFR < 60 mL/min/1.30l2Ywymql Kidney Disease: Estimated GFR < 15 mL/min/1.73m2 Glucose 133(H) 60 - 115 mg/dL [facility] Calcium 8.8 8.4 - 10.2 mg/dL [facility] Bilirubin, Total 0.5 0.0 - 1.0 mg/dL [facility] Aspartate Amino Transferase 197(H) 5 - 31 U/L [facility] Alanine Aminotransferase 243(H) 0 - 31 U/L [facility] Total Protein 7.6 6.5 - 8.0 g/dL [facility] Albumin Level 3.7 3.5 - 5.0 g/dL [facility] Alkaline Phosphatase 164(H) 39 - 117 U/L [facility] 05/30/2024 1:17 PM EDT 05/30/2024 1:23 PM EDT us Generic External Data Provider LAB BLOOD ORDERAB LES Final Result [facility] [address] [place] [phone] * (ABNORMAL) CBC auto differential (05/30/2024 1:17 PM EDT) White Blood Count 6.0 4.8 - 10.8 X10*3/uL [facility] Red Blood Count 4.49 4.20 - 5.50 X10*6/uL [facility] Hemoglobin 14.6 12.0 - 16.0 g/dl [facility] Hematocrit 42.3 37.0 - 47.0 % [facility] Mean Corpuscular Volume 94.2 80.0 - 98.0 fL [facility] Mean Corpuscular Hemoglobin 32.5 27.0 - 33.0 pg [facility] Mean Corpuscular HGB Conc 34.5 31.0 - 35.0 g/dl [facility] Red Cell Distribution Width 14.3 11.0 - 16.0 % [facility] Platelet Count 269 160 - 400 X10*3/uL [facility] Mean Platelet Volume 9.7 9.4 - 12.3 fL [facility] Neutrophils Percent Auto 46.6 45 - 73 % [facility] Imm Gran Pct Auto 0.2 0.0 - 0.4 % [facility] Lymphocytes Percent Auto 41.4(H) 20 - 40 % [facility] Monocytes Percent Auto 8.3 2 - 11 % [facility] Eosinophils Percent Auto 2.8 0 - 4 % [facility] Basophils Percent Auto 0.7 0 - 2 % [facility] NRBC Pct Auto 0.0 0.0 - 0.2 /100WBC [facility] Neutrophils Absolute Auto 2.8 2.0 - 8.3 x10*3/uL [facility] Imm Gran Abs Auto 0.01 0.00 - 0.03 X10*3/uL [facility] Lymphocytes Absolute Auto 2.5 1.2 - 4.9 X10*3/uL [facility] Monocytes Absolute Auto 0.5 0.1 - 1.2 X10*3/uL [facility] Eosinophils Absolute Auto 0.2 0.0 - 0.4 X10*3/uL [facility] Basophils Absolute Auto 0.0 0.0 - 0.2 X10*3/uL [facility] NRBC Abs Auto 0.000 0.0 - 0.012 X10*3/uL [facility] 05/30/2024 1:17 PM EDT 05/30/2024 1:23 PM EDT us Generic External Data Provider LAB BLOOD ORDERAB LES Final Result [facility] [address] [place] [address] [phone] documented in this encounter Visit Diagnoses Not on filedocumented in this encounter Additional Health Concerns Assessment Noted Time PHQ-9 Depression Total Score: 12 08/2 024 2:58 PM EDT documented as of this encounter Care Teams Court Bailiff Or Sheriff Relationship Specialty Start Date End Date Sariah Vickers ANP [address] [place] [address] PCP - General Family Medicine 09/23/19 Yuri Pierre, MikeD [address] [place] [address] Pharmacist Internal Medicine 05/05/24 Basilio Hall MD [address] [place] [address] Cardiology 05/17/24 Ron Preciado MD [address] [place], [place] [phone] Pulmonary Disease 05/17/24 documented as of this encounter
--- OUTSIDE RECORDS SUMMARY | 2024-05-31 14:50 | XMS_ITS | Encounter Summary ---
Author Organization [employer] Address 75 [facility] 7t [place] [address] Care Team Providers Care Photonics Engineer Name Role Phone Sariah Vickers Primary Care Provider [phone] Yuri Pierre PharmD Unavailable [phone] Basilio Hall MD Unavailable [phone] Ron Preciado MD Unavailable [phone] Encounter Details Date Type Department Care Team (Late st Contact Info) Description 05/21/2024 Telephone [facility]INE [address] [place] [address] Sariah Vickers ANP [address] [place] [address] Social History Tobacco Use Types Packs/Day Years [...] 11:47 AM EDT Pharmacy received message from [facility] that Sensor PA request will [...] prescription for Jalil 2 plus sensor to [facility] pharmacy with PCP name to resubmit form to [facility] today 05/21/2024. documented in this encounter Plan of Treatment Upcoming Encounters Date Type Department Care Team (Late st Contact Info) Description 07/02/2024 11:00 AM EDT Clinical Support [facility] [address] [place] [address] [phone] Azeb Hall, MARTIN [address] [place], [place] [phone] 07/15/2024 1:00 PM EDT Office Visit [facility] [address] [place] [address] Sariah Vickers ANP [address] [place] [address] 08/04/2024 10:00 AM EDT Medication Management [facility] [address] [place] [address] Yuri Pierre, Dileep [address] [place] [address] 08/04/2024 1:00 PM EDT Office Visit [facility] ADULT DENTAL [address] [place] [address] Nuvia Duarte [address] [place] [address] documented as of this encounter Goals Goal [...] Type 2 diabetes mellitus with hyperlipidemia (CMS/HCC) ([facility]) documented in this encounter Additional Health Concerns Assessment Noted Time PHQ-9 Depression Total Score: 12 024 2:58 PM EDT documented as of this encounter Care Teams Photonics Engineer Relationship Specialty Start Date End Date Sariah Vickers ANP [address] [place] [address] PCP - General Family Medicine 09/23/19 Yuri Pierre, Dileep [address] [place] [address] Pharmacist Internal Medicine 05/05/24 Basilio Hall MD [address] [place] [address] Cardiology 05/17/24 Ron Preciado MD [address] [place] [address] Pulmonary Disease 05/17/24 documented as of this encounter
--- OUTSIDE RECORDS SUMMARY | 2024-05-31 14:50 | XMS_ITS | Encounter Summary ---
Author Organization [employer] Address 75 [facility] 7t [place] [address] Care Team Providers Care Film Technician Name Role Phone Sariah Vickers Primary Care Provider [phone] Yuri Pierre PharmD Unavailable [phone] Basilio Hall MD Unavailable [phone] Ron Preciado MD Unavailable [phone] Reason for Visit * Reason Comments Med Refill Encounter Details Date Type Department Care Team (Late st Contact Info) Description 12/27/2022 Refill [facility] [address] [place] [address] Sariah Vickers ANP [address] [place] [address] Neck pain Social History Tobacco Use Types [...] 11:00 AM EDT Clinical Support [facility] [address] [place] [address] Azeb Hall, MARTIN [address] [place] [address] 07/15/2024 1:00 PM EDT Office Visit [facility] [address] [place] [address] Sariah Vickers, ANP [address] [place] [address] 08/04/2024 10:00 AM EDT Medication Management [facility] [address] [place] [address] Yuri Pierre, PharmD [address] [place] [address] 08/04/2024 1:00 PM EDT Office Visit [facility] ADULT DENTAL [address] [place] [address] Nuvia Duarte [address] [place] [address] documented as of this encounter Goals Goal [...] Cervicalgia documented in this encounter Care Teams Film Technician Relationship Specialty Start Date End Date Sariah Vickers ANP [address] [place] [address] PCP - General Family Medicine 09/23/19 Yuri Pierre, MikeD [address] [place] [address] Pharmacist Internal Medicine 05/05/24 Basilio Hall MD [address] [place] [address] Cardiology 05/17/24 Ron Preciado MD [address] [place] [address] Pulmonary Disease 05/17/24 documented as of this encounter
--- OUTSIDE RECORDS SUMMARY | 2024-05-31 14:50 | XMS_ITS | Encounter Summary ---
Author Organization [facility] Address 75 [facility] 7t [place] [address] Care Team Providers Care Barn Boss Name Role Phone Sariah Vickers Primary Care Provider [phone] Yuri Pierre PharmD Unavailable [phone] Basilio Hall MD Unavailable [phone] Ron Preciado MD Unavailable [phone] Reason for Visit * Reason Comments Med Refill Encounter Details Date Type Department Care Team (Late st Contact Info) Description 03/07/[address] [facility] MED[facility]INE [address] [place] [address] Sariah Vickers ANP 230 [place] [address] Vertigo Social History Tobacco Use Types Packs/Day [...] AM EDT Clinical Support [facility] [address] [place] [address] Azeb Hall, MARTIN 505 [place] [address] 07/15/2024 1:00 PM EDT Office Visit [facility] [address] [place] [address] Sariah Vickers, ANP 230 [place] [address] 08/04/2024 10:00 AM EDT Medication Management [facility] [address] [place] [address] Yuri Pierre, PharmD [address] [place] [address] 08/04/2024 1:00 PM EDT Office Visit [facility] ADULT DENTAL [address] [place] [address] Nuvia Duarte [address] [place] [address] documented as of this encounter Goals Goal [...] giddiness documented in this encounter Care Teams Barn Boss Relationship Specialty Start Date End Date Sariah Vickers ANP [address] [place] [address] PCP - General Family Medicine 09/23/19 Yuri Pierre, MikeD [address] [place] [address] Pharmacist Internal Medicine 05/05/24 Basilio Hall MD [address] [place] [address] Cardiology 05/17/24 Ron Preciado MD [address] [place] [address] Pulmonary Disease 05/17/24 documented as of this encounter
--- OUTSIDE RECORDS SUMMARY | 2024-05-31 14:50 | XMS_ITS | Clinical Summary ---
Author Organization [address] [facility] Address [address] [place] [address] Phone Care Team Providers Care Room Service Food Service Attendant Name Role Phone Sariah Vickers NP Primary Care Provider [phone] Social History Tobacco Use Types Packs/Day Years [...] - 2023-2 5 season) 2023 Influenza Vaccine (Season Ended) 2024 11/10/19 19 DTaP,Tdap,and Td Vaccines (2 - Td or [...] age to complete this topic Care Teams Room Service Food Service Attendant Relationship Specialty Start Date End Date Sariah Vickers NP [address] [place] [phone] PCP - General 12/03/23
--- OUTSIDE RECORDS SUMMARY | 2024-05-31 14:50 | XMS_ITS | Encounter Summary ---
Author Organization [facility] Address [address] 7t [place] [address] Care Team Providers Care Human Resource Management Instructor Name Role Phone Sariah Vickers Primary Care Provider [phone] Yuri Pierre PharmD Unavailable [phone] Basilio Hall MD Unavailable [phone] Ron Preciado MD Unavailable [phone] Reason for Visit * Reason Comments Med Refill Patient [facility] hasn't finished her Medbox due to missing refill for medication Gabapetin . Encounter Details Date Type Department Care Team (Late st Contact Info) Description 10/03/2023 Refill [facility] 230 [place], [place] [phone] Sariah Vickers ANP 230 [place], [place] [phone] Chronic SI joint pain Social History Tobacco [...] the past 12 months, has t he [employer], gas, oil or water [facility] threatened to shut off services in your [...] Clinical Support [facility] [address] [place] [address] Azeb Hall RN 505 [place] [address] 07/15/2024 1:00 PM EDT Office Visit [facility] [address] [place] [address] Sariah Vickers ANP 230 [place] [address] 08/04/2024 10:00 AM EDT Medication Management [facility] [address] [place] [address] Yuri Pierre, MikeD 230 [place] [address] 08/04/2024 1:00 PM EDT Office Visit [facility] 230 [place] [address] Nuvia Duarte 230 [place] [address] documented as of this encounter Goals Goal [...] documented as of this encounter Care Teams Human Resource Management Instructor Relationship Specialty Start Date End Date Sariah Vickers ANP 230 [place] [address] PCP - General Family Medicine 09/23/19 Yuri Pierre, PharmD 230 [place] [address] Pharmacist Internal Medicine 05/05/24 Basilio Hall MD 596 [place] [address] Cardiology 05/17/24 Ron Preciado MD [address] [place] [address] Pulmonary Disease 05/17/24 documented as of this encounter
--- OUTSIDE RECORDS SUMMARY | 2024-05-31 14:50 | XMS_ITS | Encounter Summary ---
Author Organization [facility] Address [address] [facility] 7t [place] [address] Care Team Providers Care Police Dispatcher Name Role Phone Sariah Vickers Primary Care Provider [phone] Yuri Pierre PharmD Unavailable [phone] Basilio Hall MD Unavailable [phone] Ron Preciado MD Unavailable [phone] Reason for Visit * Reason Onset Date Comments Nurse Triage 12/24/2022 Encounter Details Date Type Department Care Team (Late st Contact Info) Description 12/24/2022 Telephone [facility] 230 [place], [place] [phone] Sariah Vickers ANP 230 [place], [place] [phone] Nurse Triage Social History Tobacco Use Types [...] - 12/24/2022 1:11 PM EST Called pt.via [employer] reinsurance analyst [id number] Benjamin. Pt. States that she wants to [...] regimen and possible referral to a new Talent Management Manager due to pt. Not having jeremie [...] accepted this outcome Please contact pt at [phone] documented in this encounter Plan of Treatment Upcoming Encounters Date Type Department Care Team (Late st Contact Info) Description 07/02/2024 11:00 AM EDT Clinical Support [facility] [address] [place] [address] Azeb Hall, RN 505 [place] [address] 07/15/2024 1:00 PM EDT Office Visit [address] [address] Sariah Vickers ANP [address] [place] [address] 08/04/2024 10:00 AM EDT Medication Management [address] [address] Yuri Pierre PharmD [address] [place] [address] 08/04/2024 1:00 PM EDT Office Visit [facility] [address] [place] [address] Nuvia Duarte [address] [place] [address] documented as of this encounter Goals Goal [...] on filedocumented in this encounter Care Teams Police Dispatcher Relationship Specialty Start Date End Date Sariah Vickers ANP [address] [place] [address] PCP - General Family Medicine 09/23/19 Yuri Pierre PharmD [address] [place] [address] Pharmacist Internal Medicine 05/05/24 Basilio Hall MD 596 [place] [address] Cardiology 05/17/24 Ron Preciado MD [address] [place] [address] Pulmonary Disease 05/17/24 documented as of this encounter
--- OUTSIDE RECORDS SUMMARY | 2024-05-31 14:50 | XMS_ITS | Encounter Summary ---
Author Organization [employer] Address [address] [facility] 7t [place] [address] Care Team Providers Care Ocean Lifeguard Specialist Name Role Phone Sariah Vickers Primary Care Provider [phone] Yuri Pierre PharmD Unavailable [phone] Basilio Hall MD Unavailable [phone] Ron Preciado MD Unavailable [phone] Reason for Visit * Reason Comments Med Refill Encounter Details Date Type Department Care Team (Late st Contact Info) Description 10/03/2023 Refill [facility] 230 [place], [place] [phone] Sariah Vickers ANP 230 [place], [place] [phone] Chronic SI joint pain Social History Tobacco [...] AM EDT Clinical Support [facility] [address] [place] [address] Azeb Hall, MARTIN 505 [place] [address] 07/15/2024 1:00 PM EDT Office Visit [facility] [address] [place] [address] Sariah Vickers, ANP 230 [place] [address] 08/04/2024 10:00 AM EDT Medication Management [facility] [address] [place] [address] Yuri Pierre, PharmD [address] [place] [address] 08/04/2024 1:00 PM EDT Office Visit [facility] [address] [place] [address] Nuvia Duarte 230 [place] [address] documented as of this encounter Goals Goal [...] documented as of this encounter Care Teams Ocean Lifeguard Specialist Relationship Specialty Start Date End Date Sariah Vickers ANP 230 [place] [address] PCP - General Family Medicine 09/23/19 Yuri Pierre PharmD [address] [place] [address] Pharmacist Internal Medicine 05/05/24 Basilio Hall MD [address] [place] [address] Cardiology 05/17/24 Ron Preciado MD [address] [place] [address] Pulmonary Disease 05/17/24 documented as of this encounter
--- OUTSIDE RECORDS SUMMARY | 2024-05-31 14:50 | XMS_ITS | Encounter Summary ---
Author Organization [facility] Address [address] [facility] 7t [place] [address] Care Team Providers Care Piercer Name Role Phone Sariah Vickers Primary Care Provider [phone] Yuri Pierre PharmD Unavailable [phone] Basilio Hall MD Unavailable [phone] Ron Preciado MD Unavailable [phone] Reason for Visit * Reason Onset Date Comments Nurse Triage 01/14/2023 Encounter Details Date Type Department Care Team (Late st Contact Info) Description 01/14/2023 Telephone [facility] 230 [place], [place] [phone] Sariah Vickers ANP 230 [place], [place] [phone] Nurse Triage Social History Tobacco Use Types [...] 01/14/2023 9:26 AM EST Called pt. Via [employer] torpedoman's mate [id number] Kelly. Pt. States that she has been having a fire feeling in her legs. Its like A burning that goes down her legs . Pt. Unsure if it because of her Diabetes. Pt. Went to [facility] for pain on her left side [...] at 10am. Will send note to clinical care program resident to have note put in chart . [...] Severe pain now, pt was seen at [facility] on 01/13 for pain in leg. Pt is still symptomatic The caller accepted this outcome Please contact pt at [phone] (freight manager needed) documented in this encounter Plan of Treatment Upcoming Encounters Date Type Department Care Team (Late st Contact Info) Description 07/02/2024 11:00 AM EDT Clinical Support [address] [address] Azeb Hall RN 505 [place] [address] 07/15/2024 1:00 PM EDT Office Visit [facility] [address] [place] [address] Sariah Vickers, ANP 230 [place] [address] 08/04/2024 10:00 AM EDT Medication Management [address] [address] Yuri Pierre, MikeD [address] [place] [address] 08/04/2024 1:00 PM EDT Office Visit [facility] [address] [place] [address] Nuvia Duarte 230 [place] [address] documented as of this encounter Goals Goal [...] on filedocumented in this encounter Care Teams Piercer Relationship Specialty Start Date End Date Sariah Vickers ANP 230 [place] [address] PCP - General Family Medicine 09/23/19 Yuri Pierre, MikeD 230 [place] [address] Pharmacist Internal Medicine 05/05/24 Basilio Hall MD 596 [place], [place] [phone] Cardiology 05/17/24 Ron Preciado MD [address] [place] [address] Pulmonary Disease 05/17/24 documented as of this encounter
--- OUTSIDE RECORDS SUMMARY | 2024-05-31 14:50 | XMS_ITS | Encounter Summary ---
Author Organization [facility] Address [address] [facility] 7t [place] [address] Care Team Providers Care Slice Plug Cutter Operator Helper Name Role Phone Sariah Vickers Primary Care Provider [phone] Yuri Pierre PharmD Unavailable [phone] aBsilio Hall MD Unavailable [phone] Ron Preciado MD Unavailable [phone] Reason for Visit * Reason Onset Date Comments Referral 05/17/2022 Encounter Details Date Type Department Care Team (Late st Contact Info) Description 05/17/2022 Telephone [facility] 230 [place] [address] Sariah Vickers ANP 230 [place] [address] Referral Social History Tobacco Use Types Packs/Day [...] guide to vertigo. Please contact pt at [phone] documented in this encounter Plan of Treatment Upcoming Encounters Date Type Department Care Team (Late st Contact Info) Description 07/02/2024 11:00 AM EDT Clinical Support [address] [address] Azeb Hall RN 505 [place] [address] 07/15/2024 1:00 PM EDT Office Visit [facility] [address] [place] [address] Sariah Vickers ANP 230 [place] [address] 08/04/2024 10:00 AM EDT Medication Management [address] [address] Yuri Pierre PharmD [address] [place] [address] 08/04/2024 1:00 PM EDT Office Visit [facility] [address] [place] [address] Brendan Duartearis 230 [place] [address] documented as of this encounter Visit Diagnoses Not on filedocumented in this encounter Care Teams Slice Plug Cutter Operator Helper Relationship Specialty Start Date End Date Sariah Vickers ANP [address] [place] [address] PCP - General Family Medicine 09/23/19 Yuri Pierre, MikeD [address] [place] [address] Pharmacist Internal Medicine 05/05/24 Basilio Hall MD 596 [place] [address] Cardiology 05/17/24 Ron Preciado MD [address] [place] [address] Pulmonary Disease 05/17/24 documented as of this encounter
--- OUTSIDE RECORDS SUMMARY | 2024-05-31 14:50 | XMS_ITS | Encounter Summary ---
Author Organization [employer] Address [address] [facility] 7t [place] [address] Care Team Providers Care Bobbin Loose End Finder Name Role Phone Sariah Vickers Primary Care Provider [phone] Yuri Pierre PharmD Unavailable [phone] Basiilo Hall MD Unavailable [phone] Ron Preciado MD Unavailable [phone] Reason for Visit * Reason Comments Med Refill Encounter Details Date Type Department Care Team (Late st Contact Info) Description 12/17/2023 Refill [facility] 230 [place] [address] Sariah Vickers ANP 230 [place] [address] Chronic SI joint pain Social History Tobacco [...] 07/02/2024 11:00 AM EDT Clinical Support [facility] [address] [place] [address] Azeb Hall RN 505 [place] [address] 07/15/2024 1:00 PM EDT Office Visit [facility] [address] [place] [address] Sariah Vickers, AKYLEE 230 [place] [address] 08/04/2024 10:00 AM EDT Medication Management [facility] [address] [place] [address] Yuri Pierre, PharmD [address] [place] [address] 08/04/2024 1:00 PM EDT Office Visit [facility] [address] [place] [address] Nuvia Duarte 230 [place] [address] documented as of this encounter Goals Goal [...] documented as of this encounter Care Teams Bobbin Loose End Finder Relationship Specialty Start Date End Date Sariah Vickers ANP 230 [place] [address] PCP - General Family Medicine 09/23/19 Yuri Pierre PharmD [address] [place] [address] Pharmacist Internal Medicine 05/05/24 Basilio Hall MD [address] [place] [address] Cardiology 05/17/24 Ron Preciado MD [address] [place] [address] Pulmonary Disease 05/17/24 documented as of this encounter
--- OUTSIDE RECORDS SUMMARY | 2024-05-31 14:50 | XMS_ITS | Encounter Summary ---
Author Organization [employer] Address [address] [facility] 7t [place] [address] Care Team Providers Care Battery Container Inspector Name Role Phone Sariah Vickers Primary Care Provider Yuri Pierre PharmD Unavailable [phone] Basilio Hall MD Unavailable [phone] Ron Preciado MD Unavailable [phone] Reason for Visit * Reason Comments Med Refill Encounter Details Date Type Department Care Team (Late st Contact Info) Description 01/04/2024 Refill [facility] [address] [place] [address] Sariah Vickers, KAYLEE 230 [place] [address] Cervicalgia Social History Tobacco Use Types Packs/Day [...] Clinical Support [facility] [address] [place] [address] Azeb Hall, MARTIN 505 [place] [address] 07/15/2024 1:00 PM EDT Office Visit [facility] [address] [place] [address] Sariah Vickers ANP 230 [place] [address] 08/04/2024 10:00 AM EDT Medication Management [facility] [address] [place] [address] Yuri Pierre, PharmD [address] [place] [address] 08/04/2024 1:00 PM EDT Office Visit [facility] [address] [place] [address] Nuvia Duarte 230 [place] [address] documented as of this encounter Goals Goal [...] documented as of this encounter Care Teams Battery Container Inspector Relationship Specialty Start Date End Date Sariah Vickers ANP 230 [place] [address] PCP - General Family Medicine 09/23/19 Yuri Pierre PharmD 230 [place] [address] Pharmacist Internal Medicine 05/05/24 Basilio Hall MD 596 [place] [address] Cardiology 05/17/24 Ron Preciado MD [address] [place] [address] Pulmonary Disease 05/17/24 documented as of this encounter
--- OUTSIDE RECORDS SUMMARY | 2024-05-31 14:50 | XMS_ITS | Encounter Summary ---
Author Organization [employer] Address [address] [facility] 7t [place] [address] Care Team Providers Care Bark Press Operator Name Role Phone Sariah Vickers Primary Care Provider [phone] Yuri Pierre PharmD Unavailable [phone] Basilio Hall MD Unavailable [phone] Ron Preciado MD Unavailable [phone] Reason for Visit * Reason Comments Med Refill Encounter Details Date Type Department Care Team (Late st Contact Info) Description 01/06/2024 Refill [facility] [address] [place] [address] Sariah iVckers, KAYLEE 230 [place] [address] Cervicalgia Social History Tobacco Use Types Packs/Day [...] [facility] [address] [place] [address] Azeb Hall, MARTIN 505 [place] [address] 07/15/2024 1:00 PM EDT Office Visit [facility] [address] [place] [address] Sariah Vickers ANP 230 [place] [address] 08/04/2024 10:00 AM EDT Medication Management [facility] [address] [place] [address] Yuri Pierre, PharmD [address] [place] [address] 08/04/2024 1:00 PM EDT Office Visit [facility] [address] [place] [address] Nuvia Duarte 230 [place] [address] documented as of this encounter Goals Goal [...] documented as of this encounter Care Teams Bark Press Operator Relationship Specialty Start Date End Date Sariah Vickers ANP 230 [place] [address] PCP - General Family Medicine 09/23/19 Yuri Pierre PharmD 230 [place] [address] Pharmacist Internal Medicine 05/05/24 Basilio Hall MD 596 [place] [address] Cardiology 05/17/24 Ron Preciado MD [address] [place] [address] Pulmonary Disease 05/17/24 documented as of this encounter
--- OUTSIDE RECORDS SUMMARY | 2024-05-31 14:50 | XMS_ITS | Encounter Summary ---
Author Organization [facility] Address [address] [facility] 7t [place] [address] Care Team Providers Care Member Certification Manager Name Role Phone Sairah Vickers Primary Care Provider [phone] Yuri Pierre PharmD Unavailable [phone] Bsailio Hall MD Unavailable [phone] Ron Preciado MD Unavailable [phone] Reason for Visit * Reason Comments Med Refill Encounter Details Date Type Department Care Team (Late st Contact Info) Description 10/17/2023 Refill [facility] 230 [place] [address] Sariah Vickers ANP 230 [place] [address] Neck pain Social History Tobacco Use Types [...] 07/02/2024 11:00 AM EDT Clinical Support [facility] [address] [place] [address] Azeb Hall, RN 505 [place] [address] 07/15/2024 1:00 PM EDT Office Visit [facility] [address] [place] [address] Sariah Vickers, KAYLEE 230 [place] [address] 08/04/2024 10:00 AM EDT Medication Management [facility] [address] [place] [address] Yuri Pierre, PharmD [address] [place] [address] 08/04/2024 1:00 PM EDT Office Visit [facility] [address] [place] [address] Nuvia Duarte 230 [place] [address] documented as of this encounter Goals Goal [...] documented as of this encounter Care Teams Member Certification Manager Relationship Specialty Start Date End Date Sariah Vickers ANP 230 [place] [address] PCP - General Family Medicine 09/23/19 Yuri Pierre PharmD 230 [place] [address] Pharmacist Internal Medicine 05/05/24 Basilio Hall MD 5[address] [place] [address] Cardiology 05/17/24 Ron Preciado MD [address] [place] [address] Pulmonary Disease 05/17/24 documented as of this encounter
--- OUTSIDE RECORDS SUMMARY | 2024-05-31 14:50 | XMS_ITS | Encounter Summary ---
Author Organization [employer] Address [address] [facility] 7t [place] [address] Care Team Providers Care Wire Tester Name Role Phone Sariah Vickers Primary Care Provider [phone] Yuri Pierre PharmD Unavailable [phone] Basilio Hall MD Unavailable [phone] Ron Preciado MD Unavailable [phone] Reason for Visit * Reason Comments Med Refill Encounter Details Date Type Department Care Team (Late st Contact Info) Description 01/06/2024 Refill [facility] [address] [place] [address] Sariah Vickers, KAYLEE 230 [place] [address] Cervicalgia Social History Tobacco Use Types Packs/Day [...] Clinical Support [facility] [address] [place] [address] Azeb Hall, MARTIN 505 [place] [address] 07/15/2024 1:00 PM EDT Office Visit [facility] [address] [place] [address] Sariah Vickers ANP 230 [place] [address] 08/04/2024 10:00 AM EDT Medication Management [facility] [address] [place] [address] Yuri Pierre, PharmD [address] [place] [address] 08/04/2024 1:00 PM EDT Office Visit [facility] [address] [place] [address] Nuvia Duarte 230 [place] [address] documented as of this encounter Goals Goal [...] as of this encounter Care Teams Wire Tester Relationship Specialty Start Date End Date Sariah Vickers ANP 230 [place] [address] PCP - General Family Medicine 09/23/19 Yuri Pierre PharmD 230 [place] [address] Pharmacist Internal Medicine 05/05/24 Basilio Hall MD 596 [place] [address] Cardiology 05/17/24 Ron Preciado MD [address] [place] [address] Pulmonary Disease 05/17/24 documented as of this encounter
--- OUTSIDE RECORDS SUMMARY | 2024-05-31 14:50 | XMS_ITS | Encounter Summary ---
Author Organization [employer] Address 75 [facility] 7t [place] [address] Care Team Providers Care Whizzer Hand Name Role Phone Sariah Vickers KAYLEE Primary Care Provider [phone] Yuri Pierre PharmD Unavailable [phone] Basilio Hall MD Unavailable [phone] Ron Preciado MD Unavailable [phone] Reason for Visit * Reason Onset Date Comments Medication Question 05/31/2024 Encounter Details Date Type Department Care Team (Late st Contact Info) Description 05/31/2024 Telephone [facility] MEDICINE [address] [place] [address] Yohana Quinn RN Medication Question Social History Tobacco Use Types Packs/Day Years [...] encounter Miscellaneous Notes * Telephone Encounter - Yohana Quinn RN - 05/31/2024 10:37 AM EDT TC placed to pt with S sports book board attendant #[id number] to advise of the information below from PCP - Pt can confirm that she has a scheduled follow up appt with [facility], Dr. Frank this afternoon at 130. The pt endorses that she still has some marked redness at the surgical site but denied any worsening pain. The pt was prescribed antibiotics at the ED but states she has not picked them up yet and will inquire with Dr. Frank about how to proceed 2. The pt was advised to stop taking the prescribed Atorvastatin due to elevated liver enzymes. Thept will bring her Medbox into the pharmacy to have this removed and will have repeat labs done in 4weeks to see how the liver enzymes levels are. 3. Pt labs drawn yesterday showing elevated liver enzymes faxed to [facility] [phone] ----- Message from Sariah Vickers sent at 05/31/2024 10:04 AM EDT ----- Please call Nuvia to check on her [...] short time. [facility] and I will ask them to call her for follow-up appointment. documented in this encounter Plan of Treatment Upcoming Encounters Date Type Department Care Team (Late st Contact Info) Description 07/02/2024 11:00 AM EDT Clinical Support [address] [address] Azeb Hall RN 505 [place] [address] 07/15/2024 1:00 PM EDT Office Visit [address] [address] Sariah Vickers ANP 230 [place] [address] 08/04/2024 10:00 AM EDT Medication Management [address] [address] Yuri Pierre, PharmD [address] [place] [address] 08/04/2024 1:00 PM EDT Office Visit [facility] ADULT DENTAL [address] [place] [address] Nuvia Duarte 230 [place] [address] documented as of this encounter Goals Goal [...] documented as of this encounter Care Teams Whizzer Hand Relationship Specialty Start Date End Date Sariah Vickers ANP 230 [place] [address] PCP - General Family Medicine 09/23/19 Yuri Pierre, PharmD 230 [place] [address] Pharmacist Internal Medicine 05/05/24 Basilio Hall MD [address] [place] [address] Cardiology 05/17/24 Ron Preciado MD [address] [place] [address] Pulmonary Disease 05/17/24 documented as of this encounter
--- OUTSIDE RECORDS SUMMARY | 2024-05-31 14:50 | XMS_ITS | Encounter Summary ---
Author Organization [employer] [facility] Address 75 [facility] 7t [place] [address] Care Team Providers Care Front Window Cashier Name Role Phone Sariah Vickers Primary Care Provider [phone] Yuri Pierre PharmD Unavailable [phone] Basilio Hall MD Unavailable [phone] Ron Preciado MD Unavailable [phone] Reason for Visit * Reason Comments Med Refill Encounter Details Date Type Department Care Team (Late st Contact Info) Description 10/24/2023 Refill [facility] MEDICINE 230 [place] [address] Sariah Vickers ANP 230 [place] [address] Neck pain Social History Tobacco Use Types [...] 11:00 AM EDT Clinical Support [facility] [address] [place] [address] Azeb Hall, RN 505 [place] [address] 07/15/2024 1:00 PM EDT Office Visit [facility] [address] [place] [address] Sariah Vickers, KAYLEE 230 [place] [address] 08/04/2024 10:00 AM EDT Medication Management [facility] [address] [place] [address] Yuri Pierre, PharmD [address] [place] [address] 08/04/2024 1:00 PM EDT Office Visit [facility] ADULT DENTAL [address] [place] [address] Nuvia Duarte 230 [place] [address] documented as of this encounter Goals Goal [...] as of this encounter Care Teams Front Window Cashier Relationship Specialty Start Date End Date Sariah Vickers ANP 230 [place] [address] PCP - General Family Medicine 09/23/19 Yuri Pierre PharmD 230 [place] [address] Pharmacist Internal Medicine 05/05/24 Basilio Hall MD 596 [place] [address] Cardiology 05/17/24 Ron Preciado MD [address] [place] [address] Pulmonary Disease 05/17/24 documented as of this encounter
--- OUTSIDE RECORDS SUMMARY | 2024-05-31 14:50 | XMS_ITS | Encounter Summary ---
Author Organization [employer] [facility] Address 75 [facility] 7t [place] [address] Care Team Providers Care Acrylic Fabricator Name Role Phone Sariah Vickers Primary Care Provider [phone] Yuri Pierre PharmD Unavailable [phone] Basilio Hall MD Unavailable [phone] Ron Preciado MD Unavailable [phone] Reason for Visit * Reason Comments Med Refill Encounter Details Date Type Department Care Team (Late st Contact Info) Description 11/24/2023 Refill [facility] MEDICINE 230 [place] [address] Sariah Vickers ANP 230 [place] [address] Vertigo Social History Tobacco Use Types Packs/Day [...] Clinical Support [facility] MEDICINE [address] [place] [address] Azeb Hall, RN 505 [place] [address] 07/15/2024 1:00 PM EDT Office Visit [facility] MEDICINE [address] [place] [address] Sariah Vickers, KAYLEE 230 [place] [address] 08/04/2024 10:00 AM EDT Medication Management [facility] MED[facility]INE [address] [place] [address] Yuri Pierre, PharmD [address] [place] [address] 08/04/2024 1:00 PM EDT Office Visit [facility] ADULT DENTAL [address] [place] [address] Nuvia Duarte 230 [place] [address] documented as of this encounter Goals Goal [...] documented as of this encounter Care Teams Acrylic Fabricator Relationship Specialty Start Date End Date Sariah Vickers ANP 230 [place] [address] PCP - General Family Medicine 09/23/19 Yuri Pierre, MikeD [address] [place] [address] Pharmacist Internal Medicine 05/05/24 Basilio Hall MD 596 [place] [address] Cardiology 05/17/24 Ron Preciado MD [address] [place] [address] Pulmonary Disease 05/17/24 documented as of this encounter
--- OUTSIDE RECORDS SUMMARY | 2024-05-31 14:50 | XMS_ITS | Encounter Summary ---
Author Organization [employer] [facility] Address 75 [facility] 7t [place] [address] Care Team Providers Care Fiber Design Engineer Name Role Phone Sariah Vickers Primary Care Provider [phone] Yuri Pierre PharmD Unavailable [phone] Basilio Hall MD Unavailable [phone] Ron Preciado MD Unavailable [phone] Reason for Visit * Reason Comments Med Refill Encounter Details Date Type Department Care Team (Late st Contact Info) Description 11/26/2023 Refill [facility] MEDICINE 230 [place] [address] Sariah Vickers ANP 230 [place] [address] Vertigo Social History Tobacco Use Types Packs/Day [...] 07/02/2024 11:00 AM EDT Clinical Support [facility] MEDICINE [address] [place] [address] Azeb Hall, RN 505 [place] [address] 07/15/2024 1:00 PM EDT Office Visit [facility] MEDICINE [address] [place] [address] Sariah Vickers, KAYLEE 230 [place] [address] 08/04/2024 10:00 AM EDT Medication Management [facility] MEDICINE [address] [place] [address] Yuri Pierre, PharmD [address] [place] [address] 08/04/2024 1:00 PM EDT Office Visit [facility] ADULT DENTAL [address] [place] [address] Nuvia Duarte 230 [place] [address] documented as of this encounter Goals Goal [...] documented as of this encounter Care Teams Fiber Design Engineer Relationship Specialty Start Date End Date Sariah Vickers ANP 230 [place] [address] PCP - General Family Medicine 09/23/19 Yuri Pierre, MikeD [address] [place] [address] Pharmacist Internal Medicine 05/05/24 Basilio Hall MD 596 [place] [address] Cardiology 05/17/24 Ron Preciado MD [address] [place] [address] Pulmonary Disease 05/17/24 documented as of this encounter
--- OUTSIDE RECORDS SUMMARY | 2024-05-31 14:50 | XMS_ITS | Encounter Summary ---
Author Organization [employer] [facility] Address 75 [facility] 7t [place] [address] Care Team Providers Care Carpet Floor Layer Apprentice Name Role Phone Sariah Vickers Primary Care Provider [phone] Yuri Pierre PharmD Unavailable [phone] Basilio Hall MD Unavailable [phone] oRn Preciado MD Unavailable [phone] Reason for Visit * Reason Onset Date Comments Med Refill 03/04/2023 Encounter Details Date Type Department Care Team (Late st Contact Info) Description 03/04/2023 Telephone [facility] MEDICINE 230 [place], [place] [phone] Sariah Vickers ANP 230 [place], [place] [phone] Med Refill Social History Tobacco Use Types [...] 50 MG tablet To be sent to: [facility] [place], [place] - [address] [place] [address] documented in this encounter Plan of Treatment Upcoming Encounters Date Type Department Care Team (Late st Contact Info) Description 07/02/2024 11:00 AM EDT Clinical Support [facility] MEDICINE [address] [place] [address] Azeb Hall RN 505 [place] [address] 07/15/2024 1:00 PM EDT Office Visit [facility] MEDICINE [address] [place] [address] Sariah Vickers, ANP [address] [place] [address] 08/04/2024 10:00 AM EDT Medication Management [facility] MEDICINE [address] [place] [address] Yuri Pierre, PharmD [address] [place] [address] 08/04/2024 1:00 PM EDT Office Visit [facility] ADULT DENTAL 230 [place] [address] Nuvia Duarte 230 [place] [address] documented as of this encounter Goals Goal [...] on filedocumented in this encounter Care Teams Carpet Floor Layer Apprentice Relationship Specialty Start Date End Date Sariah Vickers ANP 230 [place] [address] PCP - General Family Medicine 09/23/19 Yuri Pierre, MikeD 230 [place] [address] Pharmacist Internal Medicine 05/05/24 Basilio Hall MD 596 [place] [address] Cardiology 05/17/24 Ron Preciado MD [address] [place] [address] Pulmonary Disease 05/17/24 documented as of this encounter
--- OUTSIDE RECORDS SUMMARY | 2024-05-31 14:50 | XMS_ITS | Encounter Summary ---
Author Organization [employer] [facility] Address 75 [facility] 7t [place] [address] Care Team Providers Care Raise Drill Operator Name Role Phone Sariah Vickers Primary Care Provider [phone] Yuri Pierre PharmD Unavailable [phone] Basilio Hall MD Unavailable [phone] Ron Preciado MD Unavailable [phone] Reason for Visit * Reason Comments Med Refill Encounter Details Date Type Department Care Team (Late st Contact Info) Description 02/28/2023 Refill [facility] MEDICINE 230 [place] [address] Sariah Vickers ANP 230 [place] [address] Cervicalgia Social History Tobacco Use Types Packs/Day [...] Description 07/02/2024 11:00 AM EDT Clinical Support [facility] MEDICINE [address] [place] [address] Azeb Hall, MARTIN 505 [place] [address] 07/15/2024 1:00 PM EDT Office Visit [facility] MEDICINE [address] [place] [address] Sariah Vickers, ANP 230 [place] [address] 08/04/2024 10:00 AM EDT Medication Management [facility] MEDICINE [address] [place] [address] Yuri Pierre, PharmD [address] [place] [address] 08/04/2024 1:00 PM EDT Office Visit [facility] ADULT DENTAL [address] [place] [address] Nuvia Duarte 230 [place] [address] documented as of this encounter Goals Goal [...] Cervicalgia documented in this encounter Care Teams Raise Drill Operator Relationship Specialty Start Date End Date Sariah Vickers ANP 230 [place] [address] PCP - General Family Medicine 09/23/19 Yuri Pierre, MikeD 230 [place] [address] Pharmacist Internal Medicine 05/05/24 Basilio Hall MD 5[address] [place] [address] Cardiology 05/17/24 Ron Preciado MD [address] [place] [address] Pulmonary Disease 05/17/24 documented as of this encounter
--- OUTSIDE RECORDS SUMMARY | 2024-05-31 14:50 | XMS_ITS | Encounter Summary ---
Author Organization [employer] [facility] Address 75 [facility] 7t [place] [address] Care Team Providers Care Needle Loom Weaver Name Role Phone Sariah Vickers Primary Care Provider [phone] Yuri Pierre PharmD Unavailable [phone] Basilio Hall MD Unavailable [phone] Ron Preciado MD Unavailable [phone] Reason for Visit * Reason Onset Date Comments Med Refill 01/09/2024 Encounter Details Date Type Department Care Team (Late st Contact Info) Description 01/09/2024 Telephone [facility] MEDICINE 230 [place] [address] Sariah Vickers ANP 230 [place], [place] [phone] Med Refill Social History Tobacco Use Types [...] Support [facility] MEDICINE [address] [place] [address] Azeb Hall RN 505 [place] [address] 07/15/2024 1:00 PM EDT Office Visit [facility] MEDICINE [address] [place] [address] Sariah Vickers, ANP 230 [place] [address] 08/04/2024 10:00 AM EDT Medication Management [facility] MEDICINE [address] [place] [address] Yuri Pierre, PharmD [address] [place] [address] 08/04/2024 1:00 PM EDT Office Visit [facility] ADULT DENTAL [address] [place] [address] Nuvia Duarte 230 [place] [address] documented as of this encounter Goals Goal [...] documented as of this encounter Care Teams Needle Loom Weaver Relationship Specialty Start Date End Date Sariah Vickers ANP 230 [place] [address] PCP - General Family Medicine 09/23/19 Yuri Pierre PharmD 230 [place] [address] Pharmacist Internal Medicine 05/05/24 Basilio Hall MD [address] [place] [address] Cardiology 05/17/24 Ron Preciado MD [address] [place] [address] Pulmonary Disease 05/17/24 documented as of this encounter
--- OUTSIDE RECORDS SUMMARY | 2024-05-31 14:50 | XMS_ITS | Encounter Summary ---
Author Organization [employer] [facility] Address 75 [facility] 7t [place] [address] Care Team Providers Care Fisheries Inspector Name Role Phone Sariah Vickers Primary Care Provider [phone] Yuri Pierre PharmD Unavailable [phone] Basilio Hall MD Unavailable [phone] Ron Preciado MD Unavailable [phone] Reason for Visit * Reason Comments Med Refill Encounter Details Date Type Department Care Team (Late st Contact Info) Description 12/19/2022 Refill [facility] MEDICINE 230 [place] [address] Sariah Vickers ANP 230 [place] [address] Vertigo Social History Tobacco Use Types Packs/Day [...] Description 07/02/2024 11:00 AM EDT Clinical Support [facility] MEDICINE [address] [place] [address] Azeb Hall, MARTIN 505 [place] [address] 07/15/2024 1:00 PM EDT Office Visit [facility] MEDICINE [address] [place] [address] Sariah Vickers, ANP 230 [place] [address] 08/04/2024 10:00 AM EDT Medication Management [facility] MEDICINE [address] [place] [address] Yuri Pierre, PharmD [address] [place] [address] 08/04/2024 1:00 PM EDT Office Visit [facility] ADULT DENTAL [address] [place] [address] Nuvia Duarte 230 [place] [address] documented as of this encounter Goals Goal [...] giddiness documented in this encounter Care Teams Fisheries Inspector Relationship Specialty Start Date End Date Sariah Vickers ANP 230 [place] [address] PCP - General Family Medicine 09/23/19 Yuri Pierre, MikeD [address] [place] [address] Pharmacist Internal Medicine 05/05/24 Basilio Hall MD [address] [place] [address] Cardiology 05/17/24 Ron Preciado MD [address] [place] [address] Pulmonary Disease 05/17/24 documented as of this encounter
--- OUTSIDE RECORDS SUMMARY | 2024-05-31 14:50 | XMS_ITS | Encounter Summary ---
Author Organization [employer] [facility] Address 75 [facility] 7t [place] [address] Care Team Providers Care Sourcing Engineer Name Role Phone Sariah Vickers Primary Care Provider [phone] Yuri Pierre PharmD Unavailable [phone] Basilio Hall MD Unavailable [phone] Ron Preciado MD Unavailable [phone] Reason for Visit * Reason Comments Med Refill Encounter Details Date Type Department Care Team (Late st Contact Info) Description 11/14/2023 Refill [facility] MEDICINE 230 [place] [address] Sariah Vickers ANP 230 [place] [address] Neck pain Social History Tobacco Use Types [...] EDT Clinical Support [facility] MEDICINE [address] [place] [address] Azeb Hall, RN 505 [place] [address] 07/15/2024 1:00 PM EDT Office Visit [facility] MEDICINE [address] [place] [address] Sariah Vickers, KAYLEE 230 [place] [address] 08/04/2024 10:00 AM EDT Medication Management [facility] MEDICINE [address] [place] [address] Yuri Pierre, PharmD [address] [place] [address] 08/04/2024 1:00 PM EDT Office Visit [facility] ADULT DENTAL [address] [place] [address] Nuvia Duarte 230 [place] [address] documented as of this encounter Goals Goal [...] documented as of this encounter Care Teams Sourcing Engineer Relationship Specialty Start Date End Date Sariah Vickers ANP 230 [place] [address] PCP - General Family Medicine 09/23/19 Yuri Pierre PharmD 230 [place] [address] Pharmacist Internal Medicine 05/05/24 Basilio Hall MD [address] [place] [address] Cardiology 05/17/24 Ron Preciado MD [address] [place] [address] Pulmonary Disease 05/17/24 documented as of this encounter
--- OUTSIDE RECORDS SUMMARY | 2024-05-31 14:50 | XMS_ITS | Clinical Summary ---
Author Organization [employer] Address [address] [place] [address] Care Team Providers [facility] Name Role Phone Anthony Ruiz KAYLEE Primary Care Provider Yuri Pierre PharmD Unavailable [phone] Baislio Hall MD Unavailable [phone] Ron Preciado MD Unavailable [phone] Allergies Active Allergy Reactions Criticality Noted [...] mouth in the morning. Active Lactobacillus-In ulin ([facility] [employer] [facility]) capsule TAKE 1 CAPSULE BY MOUTH EVERY [...] neuropathy, with long-term current use of insulin ([facility]) USE 1 SPRAY (3MG) IN ONE NOSTRIL FOR A PATIENT WITH SEVERE HYPOGLYCEMIA WHO IS NOT RESPONSIVE AND UNABLE SELF-TREAT WITH GLUCOSE. AFTERWARDS TURN ON SIDE. MAY REPEAT IN 15MINUTES IF PATIENT DOES NOT RESPOND. 2 each 1 024 Active insulin lispro (HumaLOG KWIKPEN) 100 UNIT/ML injectionIndicat ions:Type 2 diabetes mellitus with hyperlipidemia (CMS/HCC) ([facility]) Inject 2 Units under the skin with [...] s:Type 2 diabetes mellitus with hyperlipidemia (CMS/HCC) ([facility]) CHEW 4 TABLETS BY MOUTH NEEDED LOW FOR BLOOD SUGAR 50 tablet 12 024 Active Ozempic, 0.25 or 0.5 MG/DOSE, 2 MG/3ML solution pen-injectorIndi cations:Type 2 diabetes mellitus with hyperlipidemia (CMS/HCC) ([facility]) INJECT 0.5 MG SUBCUTANEOUSLY EVERY 7 DAYS [...] 60 each 5 025 Active Continuous Glucose [employer] Director (FreeStyle Jalil 2 Barton) deviceIndication s:Type 2 diabetes mellitus with hyperlipidemia (CMS/HCC) ([facility]) Use to check blood sugar at least every 8 hours 1 each 025 Active gabapentin (Neurontin) 400 MG capsuleIndicatio [...] 6 HOURS NEEDED 60 tablet 025 Active predniSONE (Deltasone) 20 MG tablet Take 2 tablets by mouth Once per day. 025 Active metoclopramide (Reglan) 5 MG tablet Take 1 tablet by mouth every 6 (six) hours during the day. 025 Active potassium chloride CR (Klor-Con M20) 20 MEQ ER tablet TAKE 1 TABLET BY MOUTH TWICE DAILY IN THE MORNING AND IN THE EVENING 180 tablet 1 025 Active busPIRone (Buspar) 10 MG tablet Take 10 mg by mouth 3 times daily. Active BD Pen Needle Lorna U/F 32G X 4 MM miscIndications: Type 2 diabetes mellitus with hyperlipidemia (CMS/HCC) ([facility]) USE DIRECTED THREE TIMES DAILY 100 each 025 Active Continuous Glucose Sensor (FreeStyle Jalil 2 Plus Sensor) miscIndications: Type 2 diabetes mellitus with hyperlipidemia (CMS/HCC) ([facility]) Apply 1 each topically every 15 days. Use to check blood sugar every 8 hours as directed. 2 each 025 Active traMADol (Ultram) 50 MG tabletIndication s:Cervicalgia TAKE 1 TABLET BY MOUTH EVERY TWELVE HOURS NEEDED FOR SEVERE PAIN 60 tablet 025 Active enalapril (Vasotec) 20 MG tabletIndication s:Essential hypertension TAKE 1 TABLET BY MOUTH EVERY MORNING 30 tablet 1 025 Active busPIRone (Buspar) 15 MG tablet Take 15 mg by mouth 3 times daily. 024 2024 Discontinued(D ose adjustment) TechLite Plus Pen [place] 32G X 4 MM miscIndications: Type 2 diabetes mellitus with hyperlipidemia (CMS/HCC) ([facility]) USE DIRECTED THREE TIMES DAILY 100 each [...] Type 2 diabetes mellitus with hyperlipidemia (CMS/HCC) ([facility]) Apply 1 sensor every 14 days 2 each 025 2024 Discontinued(A lternate therapy) enalapril (Vasotec) 20 MG tabletIndication s:Essential hypertension TAKE 1 TABLET BY MOUTH EVERY MORNING 30 tablet 1 025 2024 Discontinued traMADol (Ultram) 50 MG tabletIndication s:Cervicalgia TAKE 1 TABLET BY MOUTH EVERY TWELVE HOURS NEEDED FOR SEVERE PAIN 60 tablet 025 2024 Discontinued atorvastatin (Lipitor) 80 MG tabletIndication s:High cholesterol TAKE 1 TABLET BY MOUTH AT BEDTIME 90 tablet 1 025 2024 Discontinued Continuous Glucose Sensor (FreeStyle Jalil 2 Plus Sensor) miscIndications: Type 2 diabetes mellitus with hyperlipidemia (CMS/HCC) ([facility]) Apply 1 each topically every 15 days. [...] family. She will continue services with [facility] for OP therapy and psychiatry services. clinician will be available if needed during next medical appointment. PLAN: (check all that apply) Continue with current services (defined as services in the past 12 months) . Pt is engaged with OP therapy and psychiatry services with [facility] @ [facility] Excessive attrition of teeth, generalized 2023 [...] family. She will continue services with [facility] for OP therapy and psychiatry services. clinician will be available if needed during next medical appointment. PLAN: (check all that apply) Continue with current services (defined as services in the past 12 months) . Pt is engaged with OP therapy and psychiatry services with [facility] @ [facility] Fibromyalgia 07/31/2022 Asthma-COPD overlap syndrome 07/31/2022 [...] for possible plantar fasciitis -referred today to pen ruler operator x ongoing discomfort -may need orthopedic shoes [...] individual therapy and psychiatry with N at [facility]. Sees psych provider every two months and therapist bi-weekly. Pt will reach out to clinician as needed. Assessment & Plan (04/10/2023 11:08 AM EST): PLAN: (check all that apply) Behavioral Health Integration Plan Patient Self Plan Patient to reach out to [facility] team as needed Assessment & Plan [...] healthy manner PLAN: 1. Follow up with [facility]: Not recommended for follow-up 2. Patient [...] Encounters Date Type Department Care Team Description 05/31/2024 Telephone [facility] [address] [place] [phone] Yohana Quinn RN Medication Question 05/31/2024 Orders Only [facility] [address] [place] [phone] Anthony Ruiz ANP OKEEFE (nonalcoholic steatohepatitis) (Primary Dx) 05/30/2024 Orders Only GENER[facility] EXTERNAL DATA DEPARTMENT Provider, Generic External Data 05/27/2024 Orders Only GENERIC EXTERNAL DATA DEPARTMENT Provider, Generic External Data 05/27/2024 Refill [facility] [address] [place] [phone] Anthony Ruiz ANP Essential hypertension 05/26/2024 Refill [facility] [address] [place] [address] Anthony Ruiz ANP Cervicalgia 05/23/2024 Refill [facility] [address] [place] [address] Anthony Ruiz ANP Cervicalgia 05/21/2024 Telephone [facility] [address] [place] [phone] Anthony Ruiz ANP 05/17/2024 Refill [facility] [address] [place] [phone] Anthony Ruiz ANP Type 2 diabetes mellitus with hyperlipidemia ([facility]) 05/12/[address] [address] Yohana Quinn, RN CGM Documentation 05/07/[address] [address] Anthony Ruiz ANP Prior Authorization 05/04/[address] [address] Anthony Ruiz ANP Prior Authorization 05/02/[address] [address] Anthony Ruiz ANP High cholesterol 04/29/[address] [address] Anthony Ruiz ANP Referral 04/29/2024 Travel 04/26/2024 Refill [facility] [address] [place] [address] Anthony Ruiz ANP Cervicalgia 04/23/2024 11:30 AM EST Clinical Support [address] [address] Azeb Hall, MARTIN Long-term current use of opiate analgesic 04/23/2024 Telephone [facility] [address] [place] [address] Azeb Hall RN 04/23/2024 Travel 04/21/2024 Telephone [facility] [address] [place] [phone] Chava Presley MD 04/20/2024 11:00 AM EST Office Visit [facility] [address] [place] [phone] Chava Presley MD Posterior chest pain (Primary Dx); Asthma-COPD overlap syndrome (CMS/HCC); Neck pain 04/20/2024 Orders Only [facility] [address] [address] Chava Presley MD 04/15/2024 1:30 PM EST Office Visit [address] [address] Anthony Ruiz ANP Umbilical hernia without obstruction and without gangrene (Primary Dx); Type 2 diabetes mellitus with hyperlipidemia (CMS/HCC) ([facility]); Acute cough; Severe persistent allergic asthma; Allergy to fish 04/15/2024 Travel 04/12/2024 Orders Only [facility] External Provider, 04/12/2024 Telephone [facility] [address] [place] [phone] Anthony Ruiz ANP Chart Prep 04/06/2024 Telephone [facility] [address] [place] [phone] Anthony Ruiz ANP Nurse Triage 04/06/2024 Refill [facility] [address] [place] [phone] Anthony Ruiz ANP Severe persistent asthma without complication 04/02/2024 Refill [facility] [address] [place] [address] Anthony Ruiz ANP Neck pain 04/02/2024 Refill [facility] [address] [place] [address] Anthony Ruiz ANP Essential hypertension; Chronic SI joint pain; Chronic bilateral low back pain, unspecified whether sciatica present 04/01/2024 Refill [facility] [address] [place] [phone] Anthony Ruiz ANP Type 2 diabetes mellitus with hyperlipidemia (CMS/HCC) ([facility]) (Primary Dx) 03/29/2024 Telephone [facility] [address] [place] [phone] Candy Bains, [employer] Follow-up 03/29/2024 Orders Only [facility] [address] [place] [phone] Anthony Ruiz ANP 03/28/2024 Refill [facility] [address] [place] [address] Anthony Ruiz ANP Cervicalgia 03/20/2024 Orders Only GENERIC EXTERNAL DATA DEPARTMENT Provider, Generic External Data 03/18/2024 Orders Only [facility] [address] [place] [phone] Waldo Rojas MD Essential hypertension (Primary Dx) 03/17/2024 1:30 PM EST Office Visit [facility] [address] [place] [phone] Anthony Ruiz ANP Type 2 diabetes mellitus with hyperlipidemia (CMS/HCC) (Primary Dx); Abscess 03/17/2024 Telephone [facility] [address] [place] [phone] Anthony Ruiz ANP 03/17/2024 Travel 03/15/[address] [address] Candy Bains, MARTIN Paperwork/Forms 03/13/2024 Refill [facility] [address] [place] [phone] Anthony Ruiz ANP Severe persistent asthma without complication 03/12/[address] [address] Anthony Ruiz ANP status check abscess 03/09/2024 Refill [facility] [address] [place], [place] [phone] Anthony Ruiz ANP Neck pain 03/03/2024 3:30 PM EST Office Visit [address] [address] Anthony Ruiz ANP Panniculitis affecting sacrum (Primary Dx); Abscess; Spondylosis of lumbar region without myelopathy or radiculopathy 03/03/2024 Travel 03/03/2024 Refill [facility] [address] [place] [phone] Anthony Ruiz ANP 03/02/[address] [address] Day Pool [place] chart prep from Last 3 Months Immunizations Name Administration [...] 07/02/2024 11:00 AM EDT Clinical Support [address] [address] Azeb Hall, MARTIN [address] [place] [address] 07/15/2024 1:00 PM EDT Office Visit [facility] [address] [place] [address] Anthony Ruiz, ANP [address] [place] [address] 08/04/2024 10:00 AM EDT Medication Management [facility] [address] [place] [address] Yuri Pierre, PharmD [address] [place] [address] 08/04/2024 1:00 PM EDT Office Visit [facility] [address] [place] [address] Nuvia Duarte [address] [place] [address] Health Maintenance Due Date Last Done Comments [...] Oral Exam 03/15/2024 09/12/2023, 08/12/2022 Depression Monitoring 04/02/2024 10/01/2023, 024 Dental Prophylaxis 04/08/2024 10/06/2023, 0 09/18/2022, 01/18/2022 [...] 136/88(2024 11:28 AM EDT) No Aida Ragland, MikeD Record Your Blood Sugar As Directed General No Aida Ragland, PharmD Hemoglobin A1c < 7 Result Component 6.6( 8:44 AM EST) No Aida Ragland PharmD Procedures Procedure Name Priority Date/Time Associated Diagnosis Comments GLUCOSE, WHOLE BLOOD Routine 05/30/2024 4:16 PM EDT SED RATE BY MODIFIED WESTERGREN Routine 05/30/2024 1:17 PM EDT LACTIC ACID Routine 05/30/2024 1:17 PM EDT C-REACTIVE PROTEIN Routine 05/30/2024 1: 17 PM EDT COMPREHENSIVE METABOLIC PANEL Routine 05/30/2024 1:17 PM EDT CBC WITH AUTO DIFFERENTIAL Routine 05/30/2024 1:17 PM EDT GLUCOSE, WHOLE BLOOD Routine 05/27/2024 12:09 PM EDT US RENAL BI Routine 05/27/2024 10:05 AM EDT GLUCOSE, WHOLE BLOOD Routine 05/27/2024 8:16 AM EDT DRUG MONITOR, PANEL 1, SCREEN, URINE Routine 05/27/2024 8:07 AM EDT POCT FRANKLIN-14 URINE DRUG SCREEN Routine 04/23/2024 [...] AUTO DIFFERENTIAL Routine 03/20/2024 2:28 PM EST ALBUMIN, RANDOM URINE W/CREATININE Routine [...] 9:00 AM EDT HM COLONOSCOPY Routine 12/27/2021 KaylaZZ HISTORICAL HPV E6/E7 RFLX ALFRED 16 18/45 Routine 05/09/2020 11:19 AM EDT from Last 3 Months or Most Recently Relevant to Health Maintenance Results * Glucose, Whole Blood (05/30/2024 4:16 PM EDT) Only the most recent of5 resultswithin the time period is included. [facility] Glucose, Whole Blood 105 60 - 115 mg/dL [facility] Comment:METER #: [id number] 05/30/2024 4:16 PM EDT 05/30/2024 4:19 PM EDT us Generic External Data Provider LAB BLOOD ORDERAB LES Final Result [facility] [address] [place] [phone] * (ABNORMAL) CBC auto differential (05/30/2024 1:17 PM EDT) Only the most recent of2 resultswithin the time period is included. [facility] White Blood Count 6.0 4.8 - 10.8 X10*3/uL [facility] Red Blood Count 4.49 4.20 - 5.50 X10*6/uL [facility] Hemoglobin 14.6 12.0 - 16.0 g/dl [facility] Hematocrit 42.3 37.0 - 47.0 % [facility] Mean Corpuscular Volume 94.2 80.0 - 98.0 fL [facility] Mean Corpuscular Hemoglobin 32.5 27.0 - 33.0 pg [facility] Mean Corpuscular HGB Conc 34.5 31.0 - 35.0 g/dl [facility] Red Cell Distribution Width 14.3 11.0 - 16.0 % [facility] Platelet Count 269 160 - 400 X10*3/uL [facility] Mean Platelet Volume 9.7 9.4 - 12.3 fL [facility] Neutrophils Percent Auto 46.6 45 - 73 % [facility] Imm Gran Pct Auto 0.2 0.0 - 0.4 % [facility] Lymphocytes Percent Auto 41.4(H) 20 - 40 % [facility] Monocytes Percent Auto 8.3 2 - 11 % [facility] Eosinophils Percent Auto 2.8 0 - 4 % [facility] Basophils Percent Auto 0.7 0 - 2 % [facility] NRBC Pct Auto 0.0 0.0 - 0.2 /100WBC [facility] Neutrophils Absolute Auto 2.8 2.0 - 8.3 x10*3/uL [facility] Imm Gran Abs Auto 0.01 0.00 - 0.03 X10*3/uL [facility] Lymphocytes Absolute Auto 2.5 1.2 - 4.9 X10*3/uL [facility] Monocytes Absolute Auto 0.5 0.1 - 1.2 X10*3/uL [facility] Eosinophils Absolute Auto 0.2 0.0 - 0.4 X10*3/uL [facility] Basophils Absolute Auto 0.0 0.0 - 0.2 X10*3/uL [facility] NRBC Abs Auto 0.000 0.0 - 0.012 X10*3/uL [facility] 05/30/2024 1:17 PM EDT 05/30/2024 1:23 PM EDT us Generic External Data Provider LAB BLOOD ORDERAB LES Final Result [facility] [address] [place] [address] [phone] * (ABNORMAL) Sed Rate by Modified Jeffrey (05/30/2024 1:17 PM EDT) Only the most recent of2 resultswithin the time period is included. Erythrocyte Sedimentation Rate 28(H) 0 - 20 MM/HR [facility] Comment:Patients with polycy themia and many hemoglobin abnormalitiesmay have depressed sed rates whereas patients with anemiamay have elevated sed rates. 05/30/2024 1:17 PM EDT 05/30/2024 1:23 PM EDT Generic External Data Provider LAB BLOOD ORDERAB LES Final Result Performing Organization Address [facility] Co de Phone Number [facility] [address] [place] [phone] * (ABNORMAL) C-reactive Protein (05/30/2024 1:17 PM EDT) Only the most recent of2 resultswithin the time period is included. C Reactive Protein 2.28(H) < or = 0.50 mg/dL [facility] 05/30/2024 1:17 PM EDT 05/30/2024 1:23 PM EDT Generic External Data Provider LAB BLOOD ORDERAB LES Final Result Performing Organization Address [facility] Phone Number [facility] [address] [place] [phone] * Lactic Acid (05/30/2024 1:17 PM EDT) Only the most recent of2 resultswithin the time period is included. Lactic Acid 0.8 0.5 - 2.0 mmol/L [facility] 05/30/2024 1:17 PM EDT 05/30/2024 1:31 PM EDT Generic External Data Provider LAB BLOOD ORDERAB LES Final Result Performing Organization Address [facility] Co de Phone Number [facility] [address] [place] [phone] * (ABNORMAL) Comprehensive Metabolic Panel (05/30/2024 1:17 PM EDT) Sodium 142 135 - 145 mmol/L [facility] Potassium 3.4 3.3 - 5.1 mmol/L [facility] Chloride 112(H) 96 - 108 mmol/L [facility] Carbon Dioxide 23 22 - 29 mmol/L [facility] Anion Gap 10(L) 12 - 20 [facility] Urea Nitrogen (BUN) 11 9 - 16 mg/dL [facility] Creatinine, Serum 0.75 0.5 - 1.4 mg/dL [facility] Creatinine Clr Calc Pharmacy 84.4 [facility] Comment:Provided height and weight: 165.1 cm,88.6 kg.eGFR (calculated from the MDRD study equation) and eCrCl(calculated from the Cockcroft-Gault equation) are based ondifferent parameters and may not yield comparable results.If eCrCl result is absurd, please check patient'sheight/weight. Estimated Glomerular Filt Rate >60 [facility] Comment:Chronic Kidney Disea se: Estimated GFR < 60 mL/min/1.06s6Hjnxdj Kidney Disease: Estimated GFR < 15 mL/min/1.73m2 Glucose 133(H) 60 - 115 mg/dL [facility] Calcium 8.8 8.4 - 10.2 mg/dL [facility] Bilirubin, Total 0.5 0.0 - 1.0 mg/dL [facility] Aspartate Amino Transferase 197(H) 5 - 31 U/L [facility] Alanine Aminotransferase 243(H) 0 - 31 U/L [facility] Total Protein 7.6 6.5 - 8.0 g/dL [facility] Albumin Level 3.7 3.5 - 5.0 g/dL [facility] Alkaline Phosphatase 164(H) 39 - 117 U/L [facility] 05/30/2024 1:17 PM EDT 05/30/2024 1:23 PM EDT us Generic External Data Provider LAB BLOOD ORDERAB LES Final Result [facility] [address] [place] [phone] * US RENAL BI (05/27/2024 10:05 AM EDT) Anatomical Region Laterality Modality Abdomen Ultrasound 05/27/2024 10:0 5 AM EDT Narrative 05/27/2024 10:06 AM EDT ?[address] ?[place] [address] ? Ultrasound Report ? Signed ? Patient: Nuvia Fay E ?MR ?? #: [id number] ? : 1960 ?Acct:[id number] ? Age/Sex: 63 / F ?ADM Date: 05/26/24 ? Loc: HO.US ? Attending Dr: Moses Mccoy MD ? Ordering Physician: Moses Mccoy MD ?? Date of Service: 05/26/24 ?? Procedure(s): US renal BI ?? Accession Number(s): [id number] ? cc: Moses Mccoy MD; ANTHONY RUIZ NP ? CLINICAL HISTORY: N20.0 - Calculus of kidney ? US renal with Color Doppler ? Comparison: CT/SR - CT ABDOMEN PELVIS W IV CON - 03/20/24 18:22 EST ?? US/SR - US ABDOMEN COMPLETE - 11/05/23 08:43 EDT ?? CT/MT/SR - CT ABDOMEN WO/W IV CON - 09/05/23 16:27 EDT ?? US/MT/SR - US RENAL BI - 06/04/23 12:55 EDT ? Findings: ?? Right kidney normal size and echotexture, 11.4 cm length. No ?? hydronephrosis calculus or mass. Normal color flow. Stable renal cortical ?? defect upper pole ?? Left kidney normal size and echotexture, 11.1 cm length. No hydronephrosis ?? calculus or mass. Normal color flow. Simple exophytic cyst upper pole ?? measuring 3.8 x 3.8 x 3.7 cm previously measuring 3.7 x [address] ? Impression: ?? 1. No nephrolithiasis or hydronephrosis. Anechoic cyst upper pole left ?? kidney described on recent CT. This was not described on previous ?? abdominal or renal ultrasound probably obscured. Six-month follow-up renal ?? ultrasound is recommended ? This document has been electronically signed by: Diogo Plasencia MD on ?? 05/27/2024 10:05:47 ? Dictated By: ?Diogo Plasencia MD ? Signed By: ?<Electronically signed by Diogo Plasencia MD in OV> ?05/27/246 ? DD/ 1005 ? TD/TT: 05/27/24 1005 ? Dispatcher [employer] Trol[employer]: ? Procedure Note Donotmarshainterpreter, Image - 05/27/[address] [address] Ultrasound Report Signed Patient: Nuvia Fay EMR #: [id number] : 1960cct:[id number] Age/Sex: 63 / FADM Date: 05/26/24 Loc: HO.US Attending Dr: Moses Mccoy MD Ordering Physician: Moses Mccoy MD Date of Service: 05/26/24 Procedure(s): US renal BI Accession Number(s): [id number] cc: Moses Mccoy MD; ANTHONY RUIZ NP CLINICAL HISTORY: N20.0 - Calculus of kidney US renal with Color Doppler Comparison: CT/SR - CT ABDOMEN PELVIS W IV CON - 03/20/24 18:22 EST US/SR - US ABDOMEN COMPLETE - 11/05/23 08:[address]/MT/SR - CT ABDOMEN WO/W IV CON - 09/05/23 16:27 EDT US/MT/SR - US RENAL BI - 06/04/23 12:55 EDT Findings: Right kidney normal size and echotexture, 11.4 cm length. No hydronephrosis calculus or mass. Normal color flow. Stable renal cortical defect upper pole Left kidney normal size and echotexture, 11.1 cm length. No hydronephrosis calculus or mass. Normal color flow. Simple exophytic cyst upper pole measuring 3.8 x 3.8 x 3.7 cm previously measuring 3.7 x 3.[address] Impression: 1. No nephrolithiasis or hydronephrosis. Anechoic cyst upper pole left kidney described on recent CT. This was not described on previous abdominal or renal ultrasound probably obscured. Six-month follow-up renal ultrasound is recommended This document has been electronically signed by: Diogo Plasencia MD on 05/27/2024 10:05:47 Dictated By: Diogo Plasencia MD Signed By: <Electronically signed by Diogo Plasencia MD in OV> 05/27/24 1006 DD/ 1005 TD/TT: 05/27/24 1005 Dispatcher Bus And Trolley: us External Provider IMG US PROCEDURES Final Result * Drug Monitoring, Panel 1, Screen, Urine (05/27/2024 8:07 AM EDT) Opiate Screen Urine Not Detected Not Detect [facility] Comment:Opiate cut-off is 30 0 ng/mL.Positive results are unconfirmed and should not be used fornon-medical purposes. Barbiturates, Urine Not Detected Not Detect [facility] Comment:Barbiturate cut-off is 200 ng/mL.Positive results are unconfirmed and should not be used fornon-medical purposes. Phencyclidine Screen Urine Not Detected Not Detect [facility] Comment:Phencyclidine cut-of f is 25 ng/mL.Positive results are unconfirmed and should not be used fornon-medical purposes. Amphetamine Screen Urine Not Detected Not Detect [facility] Comment:Amphetamine cut-off is 1000 ng/mL.Positive results are unconfirmed and should not be used fornon-medical purposes. Benzodiazepines Screen Urine Not Detected Not Detect [facility] Comment:Benzodiazepine cut-o ff is 200 ng/mL.Positive results are unconfirmed and should not be used fornon-medical purposes. Cocaine Screen Urine Not Detected Not Detect [facility] Comment:Cocaine cut-off is 3 00 ng/mL.Positive results are unconfirmed and should not be used fornon-medical purposes. Cannabinoid Screen Urine Not Detected Not Detect [facility] Comment:Cannabinoid cut-off is 50 ng/mL.Positive results are unconfirmed and should not be used fornon-medical purposes. Methadone Screen, Urine Not Detected Not Detect ng/mL [facility] Comment:Methadone cut-off is 300 ng/mL.Positive results are unconfirmed and should not be used fornon-medical purposes. FENTANYL URINE Not Detected Not Detect [facility] Comment:Fentanyl cut-off is 1 ng/mL.Positive results are unconfirmed and should not be used fornon-medical purposes. Oxycodone Urine Screen Not Detected Not Detect ng/mL [facility] [facility] Comment:Oxycodone cut-off is 100 ng/mL.Positive results are unconfirmed and should not be used fornon-medical purposes. Buprenorphine Screen Not Detected Not Detect ng/mL [facility] Comment:Buprenorphine cut-of f is 5 ng/mL.Positive results are unconfirmed and should not be used fornon-medical purposes. 05/27/2024 8:07 AM EDT 05/27/2024 8:13 AM EDT Generic External Data Provider LAB URINE ORDERAB LES Final Result [facility] [address] [place] [phone] * POCT FRANKLIN-14 Urine Drug Screen (04/23/2024 10:56 AM EST) Urine Urine specimen obtained by clean catch procedure / Unknown 04/23/2024 10:56 AM EST Narrative Azeb Hall RN - 04/23/2024 10:56 AM EST .UTOX cup Lot#[id number] Exp. 10/06/25 Internal Pass Control negative AMP, BAR, BUP, BZO, RENETTA, FTY, MDMA, MET, MOP, MTD, OXY, PCP, TCA, THC. [facility] POINT OF CARE TEST ENTER/EDIT OR DERABLES Edited Result - Final * D Dimer High Sensitivity (04/20/2024 1:21 PM EST) D Dimer High Sensitivity 218 NG/ML [facility] Comment:D-DIMER HS REFERENCE RANGENote: Our [...] MD LAB BLOOD ORDERABLES Final Resul t [facility] [address] [place] [address] [phone] * XR Chest 2 Views (04/20/2024 1:05 PM EST) Anatomical Region Laterality Modality Chest Radiographic Griselda ging 04/20/2024 1:05 PM EST Narrative 04/21/2024 9:57 AM EST ?[address] ?[place] [address] ?XRay Report ? Signed ? Patient: Nuvia Fay ?MR ?? #: [id number] ? : 1960 ?Acct:[id number] ? Age/Sex: 63 / F ?ADM Date: 04/20/24 ? Loc: HO.XRAY ? Attending Dr: Chava Presley MD ? Ordering Physician: CHAVA PRESLEY MD ?? Date of Service: 04/20/24 ?? Procedure(s): XR chest 2V ?? Accession Number(s): [id number] ? cc: CHAVA PRESLEY MD; ANTHONY RUIZ [...] AM EST RP ? Dictated By: ?Lynda,Saad Ramirez MD ? Signed By: ?<Electronically signed by Saad Howell MD in OV> ?04/21/24 0954 ? DD/ 1305 ? TD/TT: 04/20/24 1310 ? Dispatcher Bus And Trolley: MSM ? Procedure Note Donotuseinterpreter, Image - 04/21/[address] [address] XRay Report Signed Patient: Nuvia Fay EMR #: [id number] : 1960cct:[id number] Age/Sex: 63 / FADM Date: 04/20/24 Loc: ZOILAGaryANDRAE Attending Dr: Chava Presley MD Ordering Physician: CHAVA PRESLEY MD Date of Service: 04/20/24 Procedure(s): XR chest 2V Accession Number(s): [id number] cc: CHAVA PRESLEY MD; ANTHONY RUIZ NP [...] 04/21/24 0954 DD/ 1305 TD/TT: 04/20/24 1310 Dispatcher Bus And Trolley: MSM us Chava Presley MD IMG XR PROCEDURES Edited Result - Final * POCT Rapid Influenza B BAILEY ID NOW (04/15/2024 2:02 PM EST) Influenza B Negative Negative, Indeterminate [facility] QC Media Lot # [id number] [facility] Lot# Expiration Date ,026 [facility] Swab 04/15/2024 2:02 PM EST Anthony Ruiz ANP POINT OF CARE TEST ENTER/EDIT OR DERABLES Final Result Performing Organization Address [facility] de Phone Number [facility] [address] [place] [address] [phone] * POCT Rapid Covid-19 BinaxNOW (04/15/2024 2:01 PM EST) Pathologist [facility] Rapid COVID Ag Negative QC Media Lot # [id number] Lot# Expiration Date 3968,026 Swab 04/15/2024 2:01 PM EST Anthony Ruiz ANP POINT OF CARE TEST ENTER/EDIT OR DERABLES Final Result * POCT Rapid Influenza A BAILEY ID NOW (04/15/2024 1:59 PM EST) Pathologist [facility] Influenza A Negative Negative, Indeterminate [facility] QC Media Lot # [id number] [facility] Lot# Expiration Date 08,026 [facility] Swab 04/15/2024 1:59 PM EST Anthony Ruiz ANP POINT OF CARE TEST ENTER/EDIT OR DERABLES Edited Result - Final Performing Organization Address [facility] Co de Phone Number [facility] [address] [place] [address] [phone] * BI Mammogram Screening Tomosynthesis Bilateral (04/12/2024 1:48 PM EST) Anatomical Region Laterality Modality Breast Bilateral Mammography 04/12/2024 1:48 PM EST Narrative 04/17/2024 12:38 PM EST ? [facility] ? [address] ?[place] [address] ? Mammography Report ? Signed ? Patient: Avinash Ho,Nuvia E ?MR ?? #: [id number] ? : 1960 ?Acct:[id number] ? Age/Sex: 63 / F ?ADM Date: 02/24/25 ? Loc: HO.MAMMO ? Attending Dr: Monica Lozano CNM ? Ordering Physician: Monica Lozano CNM ?Results: 2Beni ?? gn Findings ? Date of Service: 04/12/24 ?Follow Up: 1 Year From Orig ?? inal Mammogram ? Procedure(s): MM tomosynthesis screening BI ?? Accession Number(s): [id number] ? cc: Monica LozanoM; ANTHONY RUIZ NP ? EXAMINATION: ?? MM [...] DD/ 1348 ? TD/TT: 04/12/24 1405 ? Dispatcher Bus And Trolley: ? Procedure Note Donconnerter, Image - 04/17/2024 [facility] [address] [place], [place] [address] Mammography Report Signed Patient: Nuvia Fay EMR #: [id number] : 1960cct:[id number] Age/Sex: 63 / FADM Date: 04/12/24 Loc: HO.MAMMO Attending Dr: Monica Lozano CNM Ordering Physician: Monica Lozanoesults: 2Beni gn Findings Date of Service: 04/12/24Follow Up: 1 Year From Orig inal Mammogram Procedure(s): MM tomosynthesis screening BI Accession Number(s): [id number] cc: Monica Lozano CNM; ANTHONY RUIZ NP [...] 04/17/24 1235 DD/ 1348 TD/TT: 04/12/24 1405 Dispatcher Bus And Trolley: [facility] External Provider IMG BI PROCEDURES Edited Result - Final * CT Abdomen Pelvis w/ Contrast (03/20/2024 7:20 PM EST) Anatomical Region Laterality Modality Body, Pelvis, Abdomen Computed T omography 03/20/2024 7:20 PM EST Narrative 03/20/2024 7:23 PM EST ?[address] ?[place] [address] ? CT Scan Report ? Signed ? Patient: Nuvia Fay ?MR ?? #: [id number] ? : 1960 ?Acct:[id number] ? Age/Sex: 63 / F ?ADM Date: 03/20/24 ? Loc: HO.ED ? Attending Dr: ? Ordering Physician: Maritza Mckeon ?? Date of Service: 03/20/24 ?? Procedure(s): CT abdomen pelvis w IV con ?? Accession Number(s): [id number] ? cc: Maritza Mckeon; ANTHONY RUIZ NP ? Report Number: ?? [id number]: Total DLP = ??844.00 mGy-cm ? CLINICAL HISTORY: abdominal wall cellulitis ?? abscess ? CT abdomen and pelvis with contrast ? Comparison: CT/MT/SR - CT ABDOMEN WO/W IV CON - [...] ? DD/ 19 ? TD/TT: 03/20/241919 ? Dispatcher Bus And Trolley: ? Procedure Note Otoniel, Image - 03/20/[address] [place] [address] [address] Scan Report Signed Patient: Nuvia Fay EMR #: [id number] : 1Acct:[id number] Age/Sex: 63 / FADM Date: 03/20/24 Loc: HO.ED Attending Dr: Ordering Physician: Maritza Mckeon Date of Service: 03/20/24 Procedure(s): CT abdomen pelvis w IV con Accession Number(s): [id number] cc: Maritza Mckeon; ANTHONY RUIZ NP Report Number: [id number]: Total DLP = 844.00 mGy-cm CLINICAL HISTORY: abdominal wall cellulitis abscess CT abdomen and pelvis with contrast Comparison: CT/MT/SR - CT ABDOMEN WO/W IV CON - [...] in OV> 03/20/241921 DD/ 19 TD/TT: 03/20/241919 Dispatcher Bus And Trolley: [facility] External Provider IMG CT PROCEDURES Edited Result - Final * Magnesium (03/20/2024 2:28 PM EST) Magnesium 2.2 1.6 - 2.6 mg/dL [facility] 03/20/2024 2:28 PM EST 03/20/2024 2:33 PM EST Generic External Data Provider LAB BLOOD ORDERAB LES Final Result [facility] [address] [place] [address] [phone] * Lipase (03/20/2024 2:28 PM EST) Pathologist [facility] Lipase 16 8 - 78 U/L [facility] 03/20/2024 2:28 PM EST 03/20/2024 2:33 PM EST Generic External Data Provider LAB BLOOD ORDERAB LES Final Result [facility] [address] [place] [address] [phone] * (ABNORMAL) Hepatic Function Panel (03/20/2024 2:28 PM EST) [facility] Bilirubin, Total 0.4 0.0 - 1.0 mg/dL [facility] Bilirubin, Direct 0.2 0.0 - 0.5 mg/dL [facility] Aspartate Amino Transferase 173(H) 5 - 31 U/L [facility] Alanine Aminotransferase 249(H) 0 - 31 U/L [facility] Total Protein 7.8 6.5 - 8.0 g/dL [facility] Albumin Level 3.8 3.5 - 5.0 g/dL [facility] Alkaline Phosphatase 138(H) 39 - 117 U/L [facility] 03/20/2024 2:28 PM EST 03/20/2024 2:33 PM EST us Generic External Data Provider LAB BLOOD ORDERAB LES Final Result [facility] [address] [place] [address] [phone] * (ABNORMAL) Basic Metabolic Panel (03/20/2024 2:28 PM EST) [facility] Sodium 143 135 - 145 mmol/L [facility] Potassium 3.7 3.3 - 5.1 mmol/L [facility] Chloride 112(H) 96 - 108 mmol/L [facility] Carbon Dioxide 23 22 - 29 mmol/L [facility] Anion Gap 12 12 - 20 [facility] Urea Nitrogen (BUN) 13 9 - 16 mg/dL [facility] Creatinine, Serum 0.82 0.5 - 1.4 mg/dL [facility] Creatinine Clr Calc Pharmacy 73.7 [facility] Comment:Provided height and weight: 157.48 cm,91.172 kg.eGFR (calculated from the MDRD study equation) and eCrCl(calculated from the Cockcroft-Gault equation) are based ondifferent parameters and may not yield comparable results.If eCrCl result is absurd, please check patient'sheight/weight. Estimated Glomerular Filt Rate >60 [facility] Comment:Chronic Kidney Disea se: Estimated GFR < 60 mL/min/1.80g3Gtanrg Kidney Disease: Estimated GFR < 15 mL/min/1.73m2 Glucose 112 60 - 115 mg/dL [facility] Calcium 8.7 8.4 - 10.2 mg/dL [facility] 03/20/2024 2:28 PM EST 03/20/2024 2:33 PM EST us Generic External Data Provider LAB BLOOD ORDERAB LES Final Result [facility] [address] [place] [phone] * Albumin, Random Urine W/Creatinine (01/02/2024 8:44 AM EST) Creatinine, Urine 47.20 mg/dL [facility] Microalbumin Urine 7.0 mg/L [facility] Microalbum Creatinine Ratio Ur 14.8 <30 ug/mg cr [facility] Comment:Albumin/Creatinine R atio Reference Ranges: Normal: < 30 ug/mg creatinine Microalbuminuria: 30 - 300 ug/mg creatinineClinical Albuminuria: > 300 ug/mg creatinine Urine (Urine, Random) 01/02/2024 8:44 AM EST 01/02/2024 11:09 AM EST us Anthony PAGE LAB URINE ORDERABLES Final Resul t Performing Organization Address City/[facility]/ZIP Co de Phone Number [facility] [address] [place] [phone] * (ABNORMAL) Hemoglobin A1c (01/02/2024 8:44 AM EST) Hemoglobin A1c 6.6(H) <6.0 % [facility] Comment:Hemoglobin A1C Refer ence Range Adults: 4.8 - 6.0 % Non diabetic: < 6.0 % Goal: < 7.0 %Additional Action Suggested: > 8.0 %Note: Hemoglobin A1c results are invalid for patients with abnormal amounts of HbF. Blood transfusions may impact the HbA1c concentration in the patient sample. Estimated Average Glucose 143 mg/dL [facility] Comment:eAG = Estimated ave rage glucose which is %A1C expressed asaverage glucose, using the formula of the F5Z-XtgkcmbCznetzz Glucose study (ADAG), Diabetes Care, Vol.31,#8,Sep. 2007 01/02/2024 8:44 AM EST 01/02/2024 11:03 AM EST [facility] External Data Provider LAB BLOOD ORDERAB LES Final Result Performing Organization Address City/[facility]/ZIP Co de Phone Number [facility] [address] [place] [phone] * Lipid Panel, Standard (01/02/2024 8:44 AM EST) Triglycerides 93 <150 mg/dL [facility] Comment:Desirable Triglyceri de: less than 150 mg/dLBorderline High Triglyceride 150-199 mg/dLHigh Triglyceride: 200-499 mg/dLVery High Triglyceride: greater than or equal to 5OO mg/dL Cholesterol 177 <200 mg/dL [facility] Comment:Desirable Cholestero l: less than 200 mg/dLBorderline High Cholesterol: 200-239 mg/dLHigh Cholesterol: greater than 239 mg/dL LDL Cholesterol Calculated 90 <100 mg/dL [facility] Comment:Desirable LDL: less than 100 mg/dLNear Optimal/Above Optimal LDL: 110- 129 mg/dLBorderline High LDL: 130-159 mg/dLHigh LDL: 160-189 mg/dLVery High LDL: greater than or equal to 190 mg/dL HDL Cholesterol 69 >40 mg/dL [facility] Comment:Desirable HDL: great er than 40 mg/dL Note: This HDL assay may give artificially low results in patients with liver disease. 01/02/2024 8:44 AM EST 01/02/2024 11:03 AM EST us Generic External Data Provider LAB BLOOD ORDERAB LES Final Result [facility] [address] [place] [phone] * (ABNORMAL) Hm Colonoscopy (12/27/2021) Colonoscopy Abnormal(A ) Normal Historical Provider MD HEALTH MAINTENANCE Final Result * HPV E6/E7 RFLX ALFRED 16 18/45 (05/09/2020 11:19 AM EDT) HPV mRNA E6/E7 rflx Not Detected Not Detected [facility] Comment: Methodology: Aircraft Stress Analyst-Mediated Amplification This assay detects E6/E7 viral messenger RNA (mRNA) from 14 high-risk HPV types (16,18,31,33,35,39,45,51,52,56,58,59,66,68). The analytical performance characteristics of this assay have been determined by [employer]. The modifications have not been cleared or approved by the FDA. This assay has been validated pursuant to the CLIA regulations and is used for clinical purposes. For additional information, please refer to http://education.import2/faq/DSC675h3 (This link if provided for information/ educational purposes only.) THIS TEST WAS PERFORMED AT: [facility] [address] [place] [address],[address] [place], [place] ??[phone] HERNAN WARREN MD 05/09/2020 11:1 9 AM EDT Yohana Ada HISTORICAL/NON ORDERABLE LABS Fi nal Result [facility] [address] [place] [address], from Last 3 Months or Most Recently Relevant to Health Maintenance Insurance - [facility] - [facility] Care Teams [facility] Relationship Specialty Start Date End Date Anthony Ruiz ANP [address] [place], [place] PCP - General Family Medicine 09/23/19 Yuri Pierre, MikeD [address] [place] [address] Pharmacist Internal Medicine 05/05/24 Basilio Hall MD [address] [place] [address] Cardiology 05/17/24 Ron Preciado MD [address] [place] [address] Pulmonary Disease 05/17/24
--- OUTSIDE RECORDS SUMMARY | 2024-05-31 14:51 | XMS_ITS | Encounter Summary ---
Author Organization [employer] Address [address] [facility] 7t [place] [address] Care Team Providers Care Rehab Department Manager Name Role Phone Sariah Vickers Primary Care Provider Yuri Pierre PharmD Unavailable [phone] Basilio Hall MD Unavailable [phone] Ron Preciado MD Unavailable [phone] Encounter Details Date Type Department Care Team (Late st Contact Info) Description 05/31/2024 Orders Only [facility] [address] [place] [address] Sariah Vickers ANP [address] [place] [address] OKEEFE (nonalcoholic steatohepatitis) (Primary Dx) Social History Tobacco Use Types [...] encounter Progress Notes * KAYLEE Lopez - 05/31/2024 10:05 AM EDT Message sent to team RN: Please call Nuvia to check on her [...] short time. please forward the results to [facility] gastroenterology and I will ask them to call her for follow-up appointment. I called pharmacy and have stopped atorvastatin for now due to elevated LFTs. I left [facility] and asked them to out reach patient for follow- up appointment. documented in this encounter Plan of Treatment Upcoming Encounters Date Type Department Care Team (Late st Contact Info) Description 07/02/2024 11:00 AM EDT Clinical Support [address] [address] Azeb Hall, MARTIN [address] [place] [address] 07/15/2024 1:00 PM EDT Office Visit [facility] [address] [place] [address] Sariah Vickers ANP [address] [place] [address] 08/04/2024 10:00 AM EDT Medication Management [facility] [address] [place] [address] Yuri Pierre PharmD [address] [place] [address] 08/04/2024 1:00 PM EDT Office Visit [facility] [address] [place] [address] Nuvia Duarte [address] [place] [address] Scheduled Orders Name Type Priority Associated Diagnoses Orde r Schedule Hepatic Function Panel Lab Routine OKEEFE (nonalcoholic steatohepatitis) Expected: 06/30/2024 (Approximate), Expires: 05/31/2025 documented as of this encounter Goals Goal [...] as of this encounter Visit Diagnoses Diagnosis OKEEFE (nonalcoholic steatohepatitis)- Primary Other chronic nonalcoholic liver disease documented in this encounter Additional Health Concerns Assessment Noted Time PHQ-9 Depression Total Score: 12 024 2:58 PM EDT documented as of this encounter Care Teams Rehab Department Manager Relationship Specialty Start Date End Date Sariah Vickers ANP [address] [place] [address] PCP - General Family Medicine 09/23/19 Yuri Pierre, PharmD [address] [place] [address] Pharmacist Internal Medicine 05/05/24 Basilio Hall MD [address] [place] [address] Cardiology 05/17/24 Ron Preciado MD [address] [place] [address] Pulmonary Disease 05/17/24 documented as of this encounter
--- OUTSIDE RECORDS SUMMARY | 2024-05-31 14:51 | XMS_ITS | Encounter Summary ---
Author Organization [employer] [facility] Address [address] [facility] 7t [place] [address] Care Team Providers Care Fixing Carpenter Name Role Phone Sariah Vickers Primary Care Provider [phone] Yuri Pierre PharmD Unavailable [phone] Basilio Hall MD Unavailable [phone] Ron Preciado MD Unavailable [phone] Reason for Visit * Reason Comments Med Refill Encounter Details Date Type Department Care Team (Late st Contact Info) Description 07/10/2022 Refill [facility] [address] [place] [address] Sariah Vickers ANP [address] [place] [address] Vertigo Social History Tobacco Use Types Packs/Day [...] Description 07/02/2024 11:00 AM EDT Clinical Support [address] [address] Azeb Hall, RN [address] [place] [address] 07/15/2024 1:00 PM EDT Office Visit [address] [address] Sariah Vickers ANP [address] [place] [address] 08/04/2024 10:00 AM EDT Medication Management [address] [address] Yuri Pierre, Dileep [address] [place] [address] 08/04/2024 1:00 PM EDT Office Visit [facility] [address] [place] [address] Nuvia Duarte [address] [place] [address] documented as of this encounter Visit Diagnoses Diagnosis Vertigo Dizziness and giddiness documented in this encounter Care Teams Fixing Carpenter Relationship Specialty Start Date End Date Sariah Vickers ANP [address] [place] [address] PCP - General Family Medicine 09/23/19 Yuri Pierre, PharmD [address] [place] [address] Pharmacist Internal Medicine 05/05/24 Basilio Hall MD [address] [place] [address] Cardiology 05/17/24 Ron Preciado MD [address] [place] [address] Pulmonary Disease 05/17/24 documented as of this encounter
--- OUTSIDE RECORDS SUMMARY | 2024-05-31 14:51 | XMS_ITS | Encounter Summary ---
Author Organization [employer] [facility] Address [address] [facility] 7t [place] [address] Care Team Providers Care Metalsmith Apprentice Name Role Phone Sariah Vickers Primary Care Provider [phone] Yuri Pierre PharmD Unavailable [phone] Basilio Hall MD Unavailable [phone] Ron Preciado MD Unavailable [phone] Reason for Visit * Reason Comments Med Refill Encounter Details Date Type Department Care Team (Late st Contact Info) Description 05/09/2023 Refill [facility] [address] [place] [address] Sariah Vickers ANP [address] [place] [address] High cholesterol Social History Tobacco Use Types [...] AM EDT Clinical Support [facility] [address] [place] [address] Azeb Hall, MARTIN [address] [place] [address] 07/15/2024 1:00 PM EDT Office Visit [facility] [address] [place] [address] Sariah Vickers, ANP [address] [place] [address] 08/04/2024 10:00 AM EDT Medication Management [facility] [address] [place] [address] Yuri Pierre, PharmD [address] [place] [address] 08/04/2024 1:00 PM EDT Office Visit [facility] [address] [place] [address] Nuvia Duarte [address] [place] [address] documented as of this encounter Goals Goal [...] hypercholesterolemia documented in this encounter Care Teams Metalsmith Apprentice Relationship Specialty Start Date End Date Sariah Vickers ANP [address] [place] [address] PCP - General Family Medicine 09/23/19 Yuri Pierre, MikeD [address] [place] [address] Pharmacist Internal Medicine 05/05/24 Basilio Hall MD [address] [place] [address] Cardiology 05/17/24 Ron Preciado MD [address] [place] [address] Pulmonary Disease 05/17/24 documented as of this encounter
--- OUTSIDE RECORDS SUMMARY | 2024-05-31 14:51 | XMS_ITS | Data Portability ---
Author Organization [employer] Address [address] [place] [address] Care Team Providers Care Display Screen Fabricator Name Role Phone HIM CCA OTHER Assessment No assessment recorded. Plan of Treatment Reminders Order Date Submit Date Provider Last Modified By Organization Details Last Modified Time Details Appointments None record ed. Lab None record ed. Referral None record ed. Procedures None record ed. Surgeries None record ed. Imaging None record ed. Medication Orders None record ed. Patient TargetsNo targets recorded. Patient InstructionsNo instructions recorded. Reason for Referral None Reported. Medical Equipment None Reported. Allergies Allergen ID Allergen Name Allergen Category Reaction Reaction Severity Criticality Documentation Date Start Date Code Code System Note Provider Name and Address Organization Details Recorded Time 02937 aspirin medicatio n Not available Not available Not available 05/29/2024 1191 RxNorm Not Available [facility] - production 13:30:18 73088 naproxen medicatio n Not available Not available Not available 05/29/2024 7258 RxNorm Not Available [facility] - production 13:30:18 Medications Name Sig Start Date Stop Date Status Note LastModified by Organization Details LastModified Time cyclobenzapr ine 10 mg tablet TAKE 1 TABLET BY MOUTH THREE TIMES DAILY NEEDED FOR MUSCLE SPASMS FOR 7 DAYS, MAY CAUSE DROWSINESS DO NOT DRIVE WHILE TAKING active Not Available Not Available No t Available fluticasone 250 mcg-salmeter ol 50 mcg/dose blistr powdr for inhalation INHALE 1 PUFF BY MOUTH TWICE DAILY, RINSE MOUTH AFTER USING. active Not Available Not Available No t Available atorvastatin 80 mg tablet TAKE 1 TABLET BY MOUTH AT BEDTIME active Not Available Not Available No t Available acetaminophe n 325 mg tablet TAKE 1 TO 2 TABLETS BY MOUTH EVERY 6 HOURS NEEDED active Not Available Not Available No t Available doxycycline hyclate 100 mg capsule TAKE 1 CAPSULE BY MOUTH TWICE DAILY UNTIL FINISHED active Not Available Not Available No t Available ipratropium 0.5 mg-albuterol 3 mg (2.5 mg base)/3 mL nebulization soln INHALE 1 AMPULE USING A NEBULIZER EVERY 6 HOURS NEEDED active Not Available Not Available No t Available cetirizine 10 mg tablet TAKE 1 TABLET BY MOUTH EVERY EVENING active Not Available Not Available No t Available Stool Softener 100 mg capsule TAKE 1 CAPSULE BY MOUTH TWICE DAILY IN THE MORNING AND IN THE EVENING active Not Available Not Available No t Available sulfamethoxa zole 400 mg-trimethop rim 80 mg tablet TAKE 1 TABLET BY MOUTH TWICE DAILY active Not Available Not Available No t Available hydrocodone 5 mg-acetamino phen 325 mg tablet TAKE 1 TABLET BY MOUTH EVERY 4 TO 6 HOURS NEEDED FOR PAIN active Not Available Not Available No t Available enalapril maleate 20 mg tablet TAKE 1 TABLET BY MOUTH EVERY MORNING active Not Available Not Available No t Available senna 8.6 mg tablet TAKE 2 TABLETS BY MOUTH EVERY DAY AT BEDTIME FOR CONSTIPATIO N active Not Available Not Available No t Available prednisone 20 mg tablet TAKE 2 TABLETS BY MOUTH EVERY DAY active Not Available Not Available No t Available gabapentin 400 mg capsule TAKE 1 CAPSULE BY MOUTH AT BEDTIME active Not Available Not Available No t Available clonazepam 1 mg tablet TAKE 1 TABLET BY MOUTH EVERY DAY and TAKE 1/2 TABLET BY MOUTH AT BEDTIME NEEDED active Not Available Not Available No t Available sulfamethoxa zole 800 mg-trimethop rim 160 mg tablet TAKE 1 TABLET BY MOUTH TWICE DAILY FOR 7 DAYS active Not Available Not Available No t Available tramadol 50 mg tablet TAKE 1 TABLET BY MOUTH EVERY TWELVE HOURS NEEDED FOR SEVERE PAIN active Not Available Not Available Not Available acetaminophe n 500 mg tablet TAKE 2 TABLETS BY MOUTH EVERY 6 HOURS NEEDED FOR PAIN OR FEVER active Not Available Not Available No t Available levothyroxin e 75 mcg tablet TAKE 1 TABLET BY MOUTH EVERY MORNING active Not Available Not Available No t Available potassium chloride ER 20 mEq tablet,exten ded release(part /cryst) TAKE 1 TABLET BY MOUTH TWICE DAILY IN THE MORNING AND IN THE EVENING active Not Available Not Available No t Available famotidine 20 mg tablet TAKE 1 TABLET BY MOUTH TWICE DAILY active Not Available Not Available No t Available metocloprami de 5 mg tablet TAKE 1 TABLET BY MOUTH THREE TIMES DAILY active Not Available Not Available Not Available amlodipine 10 mg tablet TAKE 1 TABLET BY MOUTH EVERY EVENING active Not Available Not Available No t Available doxycycline monohydrate 100 mg capsule TOME 1 C PSULA POR V A ORAL DOS VECES AL D A active Not Available Not Available No t Available cephalexin 500 mg capsule TAKE 1 CAPSULE BY MOUTH THREE TIMES DAILY UNTIL FINISHED active Not Available Not Available No t Available buspirone 10 mg tablet TAKE 1 TABLET BY MOUTH THREE TIMES DAILY active Not Available Not Available Not Available clotrimazole -betamethaso ne 1 %-0.05 % topical cream APPLY A THIN LAYER TO AFFECTED AREA(S) TWICE DAILY FOR ITCHING FOR 7 DAYS DIRECTED active Not Available Not Available Not Available lidocaine 5 % topical patch APPLY 1 PATCH TOPICALLY TO SKIN, LEAVE ON FOR 12 HOURS AND OFF FOR 12 HOURS DIRECTED active Not Available Not Available No t Available ibuprofen 400 mg tablet TAKE 1 TABLET BY MOUTH THREE TIMES DAILY NEEDED FOR PAIN OR FEVER active Not Available Not Available No t Available omeprazole 20 mg capsule,martha yed release TAKE 1 CAPSULE TWICE DAILY IN THE MORNING AND IN THE EVENING active Not Available Not Available No t Available magnesium citrate oral solution DRINK 1/2 BOTTLE AND WAIT 30 MINUTES IF NO BOWEL MOVEMENT THEN REPEAT active Not Available Not Available Not Available montelukast 10 mg tablet TAKE 1 TABLET BY MOUTH EVERY EVENING active Not Available Not Available No t Available pyridoxine (vitamin B6) 100 mg tablet TAKE 1 TABLET BY MOUTH EVERY MORNING active Not Available Not Available No t Available cefuroxime axetil 500 mg tablet TAKE 1 TABLET BY MOUTH TWICE DAILY FOR 5 DAYS active Not Available Not Available No t Available levofloxacin 750 mg tablet TAKE 1 TABLET BY MOUTH ONCE DAILY active Not Available Not Available No t Available zolpidem 10 mg tablet TAKE 1 TABLET BY MOUTH AT BEDTIME NEEDED active Not Available Not Available No t Available methylpredni solone 4 mg tablets in a dose pack TAKE DIRECTED active Not Available Not Available No t Available fluticasone propionate 50 mcg/actuatio n nasal spray,suspen edwin INSTILL 2 SPRAYS IN EACH NOSTRIL ONCE DAILY IN THE MORNING active Not Available Not Available No t Available doxycycline hyclate 100 mg tablet TAKE 1 TABLET BY MOUTH TWICE DAILY FOR 5 DAYS active Not Available Not Available No t Available risperidone 0.5 mg tablet TAKE 1 TABLET BY MOUTH TWICE DAILY active Not Available Not Available No t Available metocloprami de 10 mg tablet TAKE 1 TABLET BY MOUTH THREE TIMES DAILY active Not Available Not Available Not Available amoxicillin 875 mg-potassium clavulanate 125 mg tablet TAKE 1 TABLET BY MOUTH TWICE DAILY FOR 7 DAYS active Not Available Not Available No t Available Ventolin HFA 90 mcg/actuatio n aerosol inhaler INHALE 2 PUFFS BY MOUTH EVERY 4 TO 6 HOURS NEEDED FOR WHEEZING active Not Available Not Available No t Available buspirone 15 mg tablet TAKE 1 TABLET BY MOUTH TWICE DAILY active Not Available Not Available No t Available Alcohol Prep Pads USE DIRECTED EVERY DAY active Not Available Not Available No t Available Spiriva with HandiHaler 18 mcg and inhalation capsules USE 1 CAPSULE FOR INHALATION ONCE A DAY DO NOT SWALLOW CAPSULE active Not Available Not Available No t Available Glutose-15 40 % oral gel TAKE 15 GRAM BY MOUTH DIRECTED FOR LOW BLOOD SUGAR active Not Available Not Available Not Available FreeStyle Lite Strips USE DIRECTED TO TEST BLOOD SUGAR FOUR TIMES DAILY active Not Available Not Available Not Available Humalog KwikPen (U-100) Insulin 100 unit/mL subcutaneous INJECT 4 UNITS SUBCUTANEOU SLY THREE TIMES DAILY WITH MEALS active Not Available Not Available N ot Available diclofenac 1 % topical gel APPLY 2 GRAMS TOPICALLY TO AFFECTED AREA(S) ONCE DAILY NEEDED FOR PAIN active Not Available Not Available No t Available [facility] 10 billion cell-200 mg sprinkle capsule TAKE 1 CAPSULE BY MOUTH EVERY DAY active Not Available Not Available No t Available BD Ultra-Fine Lorna Pen Needle 32 gauge x 5/32 USE DIRECTED THREE TIMES DAILY active Not Available Not Available No t Available Certavite-An tioxidant 18 mg-400 mcg tablet TAKE 1 TABLET BY MOUTH EVERY MORNING active Not Available Not Available No t Available Combivent Respimat 20 mcg-100 mcg/actuatio n solution for inhalation INHALE 1 PUFF 4 TIMES A DAY, MAY TAKE ADDITIONAL PUFFS NEEDED. (MAX OF 6 PUFFS PER DAY) active Not Available Not Available No t Available TRUEplus Lancets 33 gauge USE DIRECTED TO TEST BLOOD SUGAR FOUR TIMES DAILY active Not Available Not Available Not Available TRUEplus Glucose 3.75 gram chewable tablet CHEW 4 TABLETS NEEDED FOR low blood sugar (LESS THAN 70mg/dL) active Not Available Not Available No t Available Trulance 3 mg tablet TAKE 1 CAPSULE BY MOUTH EVERY MORNING active Not Available Not Available No t Available Fiasp FlexTouch U-100 Insulin 100 unit/mL (3 mL) subcutaneous pen INJECT 2 UNITS SUBCUTANEOU SLY THREE TIMES DAILY BEFORE MEALS active Not Available Not Available No t Available FreeStyle Jalil 2 Sensor kit USE 1 sensor EVERY 14 DAYS active Not Available Not Available No t Available FreeStyle Jalil 2 [place] USE DIRECTED TO TEST BLOOD SUGAR EVERY 8 HOURS active Not Available Not Available No t Available Ozempic 1 mg/dose (4 mg/3 mL) subcutaneous pen injector Inject 1 MG SUBCUTANEOU SLY EVERY 7 DAYS IN THE ABDOMEN, THIGHS OR UPPER ARM. ROTATE INJECTION SITES. active Not Available Not Available No t Available Paxlovid 300 mg (150 mg x 2)-100 mg tablets in a dose pack TAKE 2 TABLETS (300 MG) OF NIRMATRELVI R & 1 TABLET (100 MG) OF RITONAVIR BY MOUTH TWICE DAILY FOR 5 DAYS active Not Available Not Available N ot Available Ozempic 2 mg/dose (8 mg/3 mL) subcutaneous pen injector Inject 2 MG SUBCUTANEOU SLY EVERY 7 DAYS IN THE ABDOMEN, THIGHS OR UPPER ARM. ROTATE INJECTION SITES. active Not Available Not Available No t Available Mounjaro 2.5 mg/0.5 mL subcutaneous pen injector INJECT ONE PEN (=2.5MG) SUBCUTANEOU SLY ONCE A WEEK DIRECTED active Not Available Not Available No t Available Ozempic 0.25 mg or 0.5 mg (2 mg/3 mL) subcutaneous pen injector INJECT 0.5 MG SUBCUTANEOU SLY EVERY 7 DAYS IN THE ABDOMEN, THIGHS, OR UPPER ARM, ROTATE INJECTION SITES. active Not Available Not Available No t Available Vitals Date Recorded Oxygen saturation Oxygen saturation in Arterial blood by Pulse oximetry Heart rate Respiratory rate Body temperature Systolic blood pressure Diastolic blood pressure Provider Name and Address Organization Details Last Updated DateTime 5 93 % 93 % 88 /min 16 /min 98 [degF] 126 mm[Hg] 83 mm[Hg] Not Available [facility] - production 5 16:18:21 Social History None recorded. Functional Status None recorded. Mental Status None recorded. Family History Nothing Reported. Medical History No medical history recorded. Gynecological HistoryNo gynecological history recorded. Obstetrics History GPAL:G 0 P 0 0 0 0 Past Encounters Encounter ID Performer Location Encounter Start Date Encounter Closed Date Diagnosis/Indication Diagnosis SNOMED-CT Code Diagnosis ICD10 Code Diagnosis Note [id number] Kathy Gonzalez MD Main - [address] [address] 05/29/2024 16:18:16 05/30/2024 23:53:07 Wound finding [id number] Z51.89 Evaluation in the field was performed by my dewaterer operator colleague, as noted above, I provided real-time direction and supervisio n for this visit.This is a 63yo F T2DM who is POD#2 from umbilical hernia repaired calling for wound assessment . Was told to remove gauze today and okay to shower but unsure if she needs to replace gauze. Reports redness around wounds (under steris) is improving but not resolved. Eating and drinking normally, no fevers or constipati on. Pain adequately controlled VS: wnlParamed ic exam: steris in place over abd surgical wounds, minimal erythema no exudatePOC testing: none Impression : normal post-op woundsPlan : no need to cover steris with gauze, reviewed wound care and red flags with pt in SpanishRed flags reviewed, pt expressed understand ing For PCP: typical post-op care We discussed the diagnostic uncertaint y of home visits and the risk associated with this. In this case, the patient and I felt this to be an acceptable and reasonable amount of risk given the benefit of avoiding an ED visit. We discussed the need to seek care urgently/e mergently in the setting of any new or worsening serious symptoms, shortness of breath, cough, chest pain, fever. Health Concerns Section Related Observation LastModified by Organization Detai ls LastModified Time None Recorded Concern Status LastModified by Organization Details LastModified Time None Recorded Advance Directives Directive None Recorded Payers Encounter Date Sequence Insurance Name Policy Number Policy Laws Covered Member ID Laws Member ID Guarantor Name 05/29/[address] [facility] [employer] - DOS ON OR AFTER 2022 - DUAL ELIGIBLE - PENITENTIARY OPTIONS AND ONE CARE (MEDICARE REPLACEMENT/ADV ANTAGE - HMO) Nuvia Da Silva [id number] Nuvia Da Silva Notes Date Note Type Note Provider Name and Address Organization Details Recorded Time 05/29/2024 text/html CRC Nurse Triage Notes (Tania Kan): Reason For Request: wound care after surgery Chief Complaints: Wound Care PMH: Diabetes Mellitus Type 2, Hyperlipidemia, Hypertension, Kidney Stones, Hysterectomy, Hypothyroidism, Asthma PMH Reviewed at 05/29/2024 - :30 Allergies Reviewed at 05/29/2024:30 Comments: Referral taken via All Round [employer], patient calling in to place a referral. Patient who had a hernia repair surgery and had a mesh placed. Patient was told she could take the big bandage off today, which she did, but there is a tape/thin bandage of the stitches, that she believes can come off today but she is nervous to do so. She also notes some erythema, and is concerned for infection. Patient would like site evaluated and possible help with wound care. .................. .................. .................. .................. .................. .................. .................. ............... Software Support Technician Note From Albert Murphy: Arrived to find patient ambulating in her apartment. Patient AOX4, GCS 15, skin pink warm and dry. Patient Kiswahili speaking only. Daycare Manager line used. Patient had hernia surgery on and is wondering if the steri strips are suppose to remain or if she needs to remove them. Educated patient that they stay and will fall off on their own. VS as noted. [facility] came on and was able to interact with patient. answered all questions for pt. Patient reassured. Red flags went over with pt. Patient denies any cp, sob, fevers. Incision looks clean and intact. .................. .................. .................. .................. .................. .................. .................. ............... [facility] Consulted: Kathy Gonzalez .................. .................. .................. .................. .................. .................. .................. ............... Disposition: Fulfilled Kathy Gonzalez MD [address] [facility],[address], [place], [address], [employer] 05/29/2024 16:25:31 OBGyn Episode No OBEpisode recorded.
--- OUTSIDE RECORDS SUMMARY | 2024-05-31 14:51 | XMS_ITS | Encounter Summary ---
Author Organization [facility] [facility] Address [address] [facility] [address] [place] [address] Care Team Providers Care Bone Char Kiln Operator Name Role Phone Sariah Vickers Primary Care Provider [phone] Yuri Pierre PharmD Unavailable [phone] Basilio Hall MD Unavailable [phone] Ron Preciado MD Unavailable [phone] Reason for Visit * Reason Comments Med Refill Encounter Details Date Type Department Care Team (Late st Contact Info) Description 06/30/2023 Refill [facility] [address] [place] [address] Sariah Vickers ANP [address] [place] [address] Neck pain Social History Tobacco Use Types [...] EDT Clinical Support [facility] [address] [place] [phone] Azeb Hall, RN [address] [place] [address] 07/15/2024 1:00 PM EDT Office Visit [facility] [address] [place] [address] Sariah Vickers, KAYLEE [address] [place] [address] 08/04/2024 10:00 AM EDT Medication Management [facility] [address] [place] [phone] Yuri Pierre, PharmD [address] [place] [address] 08/04/2024 1:00 PM EDT Office Visit [facility] [address] [place] [address] Nuvia Duarte [address] [place] [address] documented as of this encounter Goals Goal [...] documented as of this encounter Care Teams Bone Char Kiln Operator Relationship Specialty Start Date End Date Sariah Vickers ANP [address] [place] [address] PCP - General Family Medicine 09/23/19 Yuri Pierre PharmD [address] [place] [address] Pharmacist Internal Medicine 05/05/24 Basilio Hall MD [address] [place] [address] Cardiology 05/17/24 Ron Preciado MD [address] [place] [phone] Pulmonary Disease 05/17/24 documented as of this encounter
--- OUTSIDE RECORDS SUMMARY | 2024-05-31 14:51 | XMS_ITS | Encounter Summary ---
Author Organization [employer] [facility] Address [address] [facility] [address] [place] [address] Care Team Providers Care Beater Engineer Helper Name Role Phone Sariah Vickers Primary Care Provider [phone] Yuri Pierre PharmD Unavailable [phone] Basilio Hall MD Unavailable [phone] Ron Preciado MD Unavailable [phone] Reason for Visit * Reason Onset Date Comments Med Refill Durable Medical Equipment 07/15/2023 Foam M attress/Raised Toilet Seat Encounter Details Date Type Department Care Team (Late st Contact Info) Description 07/15/2023 Refill [facility] [address] [place], [place] [phone] Sariah Vickers ANP [address] [place], [place] [phone] Neck pain Social History Tobacco Use Types [...] Please see request sent via email by [facility] Canvas Baster Jumpbasting Arlin Baker. Please Advise. Good morning, Our [...] Upcoming Encounters Date Type Department Care Team ([facility] st Contact Info) Description 07/02/2024 11:00 AM EDT Clinical Support [address] [address] Azeb Hall, RN [address] [place] [address] 07/15/2024 1:00 PM EDT Office Visit [facility] [address] [place] [address] Sariah Vickers ANP [address] [place] [address] 08/04/2024 10:00 AM EDT Medication Management [facility] [address] [place] [address] Yuri Pierre PharmD [address] [place] [phone] 08/04/2024 1:00 PM EDT Office Visit [facility] AD[facility] D[facility] [address] [place] [address] Nuvia Duarte [address] [place] [address] documented as of this encounter Goals Goal [...] documented as of this encounter Care Teams Beater Engineer Helper Relationship Specialty Start Date End Date Sariah Vickers ANP [address] [place] [phone] PCP - General Family Medicine 09/23/19 Yuri Pierre PharmD [address] [place] [address] Pharmacist Internal Medicine 05/05/24 Basilio Hall MD [address] [place] [address] Cardiology 05/17/24 Ron Preciado MD [address] [place] [address] Pulmonary Disease 05/17/24 documented as of this encounter
--- OUTSIDE RECORDS SUMMARY | 2024-05-31 14:51 | XMS_ITS | Continuity of Care Document ---
Author Organization [employer] Address [address] [place] [address] Care Team Providers Care Manager Cash Name Role Phone HIM CCA OTHER Assessment [...] Name and Address Organization Details Recorded Time 85447 aspirin medicatio n Not available Not available Not available 05/29/2024 1191 RxNorm Not Available [facility] - production 13:30:18 [address]1350 naproxen medicatio n Not available Not available [...] Not Available Not Available No t Available [facility] 10 billion cell-200 mg sprinkle capsule TAKE 1 CAPSULE BY MOUTH EVERY DAY active Not Available Not Available No t Available BD Ultra-Fine Lorna Pen Needle 32 gauge x USE DIRECTED THREE TIMES DAILY active Not [...] Available No t Available FreeStyle Jalil 2 [place] USE DIRECTED TO TEST BLOOD SUGAR EVERY [...] SNOMED-CT Code Diagnosis ICD10 Code Diagnosis Note [id number] Kathy Gonzalez MD Main - [address] [address] 05/29/2024 16:18:16 05/30/2024 23:53:07 Wound finding [id number] Z51.89 Evaluation in the field was performed by my automotive paint technician colleague, as noted above, I provided real-time [...] by Organization Details LastModified Time None Recorded Payers Encounter Date Sequence Insurance Name Policy Number Policy Laws Covered Member ID Laws Member ID Guarantor Name 05/29/2024 1 [facility] [employer] - DOS ON OR AFTER 2022 - DUAL ELIGIBLE - FPC OPTIONS AND ONE CARE (MEDICARE REPLACEMENT/ADV ANTAGE - HMO) Nuvia Da Silva [id number] Nuvia Da Silva Notes Date Note Type Note Provider Name and Address Organization Details Recorded Time 05/29/2024 text/html CRC Nurse Triage Notes (Tania Kan): Reason For Request: wound care after surgery Chief Complaints: Wound Care PMH: Diabetes Mellitus Type 2, Hyperlipidemia, Hypertension, Kidney Stones, Hysterectomy, Hypothyroidism, Asthma PMH Reviewed at 05/29/2024:30 Allergies Reviewed at 05/29/2024:30 Comments: Referral taken via [employer]ard Abatement Worker, patient calling in to place a referral. [...] .................. .................. .................. .................. .................. .................. ............... Borematic 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 Note From Albert Murphy: Arrived to find patient ambulating in her apartment. Patient AOX4, GCS 15, skin pink warm and dry. Patient Czech speaking only. Post Closer line used. Patient had hernia surgery on and is wondering if the steri strips are suppose to remain or if she needs to remove them. Educated patient that they stay and will fall off on their own. VS as noted. [facility] came on and was able to interact with patient. answered all questions for pt. Patient reassured. Red flags went over with pt. Patient denies any cp, sob, fevers. Incision looks clean and intact. .................. .................. .................. .................. .................. .................. .................. ............... [facility] Consulted: Kathy Gonzalez .................. .................. .................. .................. .................. .................. .................. ............... Disposition: Fulfilled Kathy Gonzalez MD [address] [facility],[address] [facility], [place], [address], [employer] 05/29/2024 16:25:31 OBGyn Episode No OBEpisode recorded.
--- OUTSIDE RECORDS SUMMARY | 2024-05-31 14:51 | XMS_ITS | Encounter Summary ---
Author Organization [facility] Address 75 [facility] 7t [place] [address] Care Team Providers Care Chief Order Dispatcher Name Role Phone Sariah Vickers Primary Care Provider [phone] Yuri Pierre PharmD Unavailable [phone] Basilio Hall MD Unavailable [phone] Ron Preciado MD Unavailable [phone] Reason for Visit * Reason Comments Med Refill Encounter Details Date Type Department Care Team (Late st Contact Info) Description 05/21/2023 Refill [facility] [address] [place] [address] Sariah Vickers ANP 230 [place] [address] Neck pain Social History Tobacco Use Types [...] AM EDT Clinical Support [facility] [address] [place] [address] Azeb Hall, RN 505 [place] [address] 07/15/2024 1:00 PM EDT Office Visit [facility] [address] [place] [address] Sariah Vickers, KAYLEE [address] [place] [address] 08/04/2024 10:00 AM EDT Medication Management [facility] [address] [place] [address] Yuri Pierre, PharmD [address] [place] [address] 08/04/2024 1:00 PM EDT Office Visit [facility] ADULT DENTAL [address] [place] [address] Nuvia Duarte [address] [place] [address] documented as of this encounter Goals Goal [...] Cervicalgia documented in this encounter Care Teams Chief Order Dispatcher Relationship Specialty Start Date End Date aSriah Vickers ANP 230 [place] [address] PCP - General Family Medicine 09/23/19 Yuri Pierre, MikeD 230 [place] [address] Pharmacist Internal Medicine 05/05/24 Basilio Hall MD 596 [place] [address] Cardiology 05/17/24 Ron Preciado MD [address] [place] [address] Pulmonary Disease 05/17/24 documented as of this encounter
--- OUTSIDE RECORDS SUMMARY | 2024-05-31 14:51 | XMS_ITS | Encounter Summary ---
Author Organization [employer] Address 75 [facility] 7t [place] [address] Care Team Providers Care Weatherization Director Name Role Phone Sariah Vickers Primary Care Provider [phone] Yuri Pierre PharmD Unavailable [phone] Basilio Hall MD Unavailable [phone] Ron Preciado MD Unavailable [phone] Reason for Visit * Reason Comments Med Refill Encounter Details Date Type Department Care Team (Late st Contact Info) Description 05/23/2024 Refill [facility] PEDS [address] [place] [address] Sariah Vickers, KAYLEE 230 [place] [address] Cervicalgia Social History Tobacco Use Types Packs/Day [...] EDT Clinical Support [facility] [address] [place] [address] Azeb Hall, MARTIN 505 [place] [address] 07/15/2024 1:00 PM EDT Office Visit [facility] [address] [place] [address] Sariah Vickers ANP 230 [place] [address] 08/04/2024 10:00 AM EDT Medication Management [facility] [address] [place] [address] Yuri Pierre, PharmD [address] [place] [address] 08/04/2024 1:00 PM EDT Office Visit [facility] ADULT DENTAL [address] [place] [address] Nuvia Duarte 230 [place] [address] documented as of this encounter Goals Goal [...] documented as of this encounter Care Teams Weatherization Director Relationship Specialty Start Date End Date Sariah Vickers ANP 230 [place] [address] PCP - General Family Medicine 09/23/19 Yuri Pierre PharmD 230 [place] [address] Pharmacist Internal Medicine 05/05/24 Basilio Hall MD 596 [place] [address] Cardiology 05/17/24 Ron Preciado MD [address] [place] [address] Pulmonary Disease 05/17/24 documented as of this encounter
--- OUTSIDE RECORDS SUMMARY | 2024-05-31 14:51 | XMS_ITS | Encounter Summary ---
Author Organization [employer] Address 75 [facility] 7t [place] [address] Care Team Providers Care Air Duct Mechanic Name Role Phone Sariah Vickers Primary Care Provider [phone] Yuri Pierre PharmD Unavailable [phone] Basilio Hall MD Unavailable [phone] Ron Preciado MD Unavailable [phone] Reason for Visit * Reason Comments Med Refill Encounter Details Date Type Department Care Team (Late st Contact Info) Description 05/26/2024 Refill [facility] MED & PEDS [address] [place] [address] Sariah Vickers, KAYLEE 230 [place] [address] Cervicalgia Social History Tobacco Use Types Packs/Day [...] 07/02/2024 11:00 AM EDT Clinical Support [facility] MEDICINE [address] [place] [address] Azeb Hall, MARTIN 505 [place] [address] 07/15/2024 1:00 PM EDT Office Visit [facility] MEDICINE [address] [place] [address] Sariah Vickers ANP 230 [place] [address] 08/04/2024 10:00 AM EDT Medication Management [facility] MEDICINE [address] [place] [address] Yuri Pierre, PharmD [address] [place] [address] 08/04/2024 1:00 PM EDT Office Visit [facility] ADULT DENTAL [address] [place] [address] Nuvia Duarte 230 [place] [address] documented as of this encounter Goals Goal [...] as of this encounter Care Teams Air Duct Mechanic Relationship Specialty Start Date End Date Sariah Vickers ANP 230 [place] [address] PCP - General Family Medicine 09/23/19 Yuri Pierre PharmD 230 [place] [address] Pharmacist Internal Medicine 05/05/24 Basilio Hall MD 596 [place] [address] Cardiology 05/17/24 Ron Preciado MD [address] [place] [address] Pulmonary Disease 05/17/24 documented as of this encounter
--- OUTSIDE RECORDS SUMMARY | 2024-05-31 14:51 | XMS_ITS | Encounter Summary ---
Author Organization [facility] Address 75 [facility] 7t [place] [address] Care Team Providers Care Neck Band Setter Name Role Phone Sariah Vickers Primary Care Provider [phone] Yuri Pierre PharmD Unavailable [phone] Basilio Hall MD Unavailable [phone] Ron Preciado MD Unavailable [phone] Reason for Visit * Reason Comments Med Refill Encounter Details Date Type Department Care Team (Late st Contact Info) Description 07/12/2022 Refill [facility] MED[facility] 230 [place] [address] Sariah Vickers ANP 230 [place] [address] Social History Tobacco Use Types Packs/Day Years [...] Description 07/02/2024 11:00 AM EDT Clinical Support [address] [address] Azeb Hall, RN 505 [place] [address] 07/15/2024 1:00 PM EDT Office Visit [address] [address] Sariah Vickers ANP [address] [place] [address] 08/04/2024 10:00 AM EDT Medication Management [address] [address] Yuri Pierre, Dileep [address] [place] [address] 08/04/2024 1:00 PM EDT Office Visit [facility] ADULT DENTAL [address] [place] [address] Brendan Duartearis [address] [place] [address] documented as of this encounter Visit Diagnoses Not on filedocumented in this encounter Care Teams Neck Band Setter Relationship Specialty Start Date End Date Sariah Vickers ANP [address] [place] [address] PCP - General Family Medicine 09/23/19 Yuri Pierre, PharmD [address] [place] [address] Pharmacist Internal Medicine 05/05/24 Basilio Hall MD 596 [place] [address] Cardiology 05/17/24 Ron Preciado MD [address] [place] [address] Pulmonary Disease 05/17/24 documented as of this encounter
--- OUTSIDE RECORDS SUMMARY | 2024-05-31 14:51 | XMS_ITS | Encounter Summary ---
Author Organization [employer] Address 75 [facility] 7t [place] [address] Care Team Providers Care Electronic Specialist Name Role Phone Sariah Vickers Primary Care Provider [phone] Yuri Pierre PharmD Unavailable [phone] Basilio Hall MD Unavailable [phone] Ron Preciado MD Unavailable [phone] Reason for Visit * Reason Comments Med Refill Encounter Details Date Type Department Care Team (Late st Contact Info) Description 05/27/2024 Refill [facility] 230 [place], [place] [phone] Sariah Vickers ANP 230 [place], [place] [phone] Essential hypertension Social History Tobacco Use Types Packs/Day Years [...] 07/02/2024 11:00 AM EDT Clinical Support [facility] MED[facility] [address] [place] [address] Azeb Hall, MARTIN 505 [place] [address] 07/15/2024 1:00 PM EDT Office Visit [facility] [address] [place] [address] Sariah Vickers ANP 230 [place] [address] 08/04/2024 10:00 AM EDT Medication Management [facility] [address] [place] [address] Yuri Pierre, PharmD [address] [place] [address] 08/04/2024 1:00 PM EDT Office Visit [facility] ADULT DENTAL [address] [place] [address] Nuvia Duarte 230 [place] [address] documented as of this encounter Goals Goal [...] Diagnoses Diagnosis Essential hypertension Unspecified essential hypertension documented in this encounter Additional Health Concerns Assessment Noted Time PHQ-9 Depression Total Score: 12 024 2:58 PM EDT documented as of this encounter Care Teams Electronic Specialist Relationship Specialty Start Date End Date Sariah Vickers ANP 230 [place] [address] PCP - General Family Medicine 09/23/19 Yuri Pierre PharmD [address] [place] [address] Pharmacist Internal Medicine 05/05/24 Basilio Hall MD [address] [place] [address] Cardiology 05/17/24 Ron Preciado MD [address] [place] [address] Pulmonary Disease 05/17/24 documented as of this encounter
--- OUTSIDE RECORDS SUMMARY | 2024-05-31 14:51 | XMS_ITS | Encounter Summary ---
Author Organization [employer] Address 75 [facility] 7t [place] [address] Care Team Providers Care Group Home Manager Name Role Phone Sariah Vickers Primary Care Provider [phone] Yuri Pierre PharmD Unavailable [phone] Basilio Hall MD Unavailable [phone] Ron Preciado MD Unavailable [phone] Reason for Visit * Reason Comments Med Refill Encounter Details Date Type Department Care Team (Late st Contact Info) Description 08/14/2022 Refill [facility] CHC MED & PEDS [address] [place] [address] Sariah Vickers, ANP 230 [place] [address] Severe persistent asthma without complication Social History [...] Description 07/02/2024 11:00 AM EDT Clinical Support [address] [address] Azeb Hall RN 505 [place] [address] 07/15/2024 1:00 PM EDT Office Visit [facility] MEDICINE [address] [place] [address] Sariah Vickers ANP [address] [place] [address] 08/04/2024 10:00 AM EDT Medication Management [address] [address] Yuri Pierre, Dileep [address] [place] [address] 08/04/2024 1:00 PM EDT Office Visit [facility] ADULT DENTAL [address] [place] [address] Felicia, Nuvia [address] [place] [address] documented as of this encounter Visit Diagnoses Diagnosis Severe persistent asthma without complication documented in this encounter Care Teams Group Home Manager Relationship Specialty Start Date End Date Sariah Vickers ANP [address] [place] [address] PCP - General Family Medicine 09/23/19 Yuri Pierre, PharmD [address] [place] [address] Pharmacist Internal Medicine 05/05/24 Basilio Hall MD 596 [place] [address] Cardiology 05/17/24 Ron Preciado MD [address] [place] [address] Pulmonary Disease 05/17/24 documented as of this encounter
--- OUTSIDE RECORDS SUMMARY | 2024-05-31 14:51 | XMS_ITS | Encounter Summary ---
Author Organization [employer] Address [address] [facility] [address] 7t [place] [address] Care Team Providers Care Gear Room Keeper Name Role Phone Anthony Ruiz KAYLEE Primary Care Provider [phone] Yuri Pierre PharmD Unavailable [phone] Basilio Hall MD Unavailable [phone] Ron Preciado MD Unavailable [phone] Encounter Details Date Type Department Care Team (Late st Contact Info) Description 05/27/2024 Orders Only GENERIC EXTERNAL DATA DEPARTMENT [...] Clinical Support [facility] MEDICINE [address] [place] [address] Azeb Hall, MARTIN 505 [place] [address] 07/15/2024 1:00 PM EDT Office Visit [facility] MEDICINE [address] [place] [address] Anthony Ruiz, ANP [address] [place] [address] 08/04/2024 10:00 AM EDT Medication Management [address] [address] Yuri Pierre, MikeD [address] [place] [address] 08/04/2024 1:00 PM EDT Office Visit [facility] ADULT DENTAL [address] [place] [address] Nuvia Duarte [address] [place] [address] documented as of this encounter Goals Goal [...] Associated Diagnosis Comments GLUCOSE, WHOLE BLOOD Routine 05/27/2024 12:09 PM EDT US RENAL BI Routine 05/27/2024 10:05 AM EDT GLUCOSE, WHOLE BLOOD Routine 05/27/2024 8:16 AM EDT DRUG MONITOR, PANEL 1, SCREEN, URINE Routine 05/27/2024 8:07 AM EDT documented in this encounter Results * (ABNORMAL) Glucose, Whole Blood (05/27/2024 12:09 PM EDT) Glucose, Whole Blood 179(H) 60 - 115 mg/dL [facility] Comment:METER #: [id number] 05/27/2024 12:0 9 PM EDT 05/27/2024 12:14 PM EDT us Generic External Data Provider LAB BLOOD ORDERAB LES Final Result [facility] [address] [place] [address] [phone] * US RENAL BI (05/27/2024 10:05 AM EDT) Anatomical Region Laterality Modality Abdomen Ultrasound 05/27/2024 10:0 5 AM EDT Narrative 05/27/2024 10:06 AM EDT ? [facility] ?[address] ?[place] [address] ? Ultrasound Report ? Signed ? Patient: Avinash Ho,Nuvia E ?MR ?? #: [id number] ? : 1960 ?Acct:[id number] ? Age/Sex: 63 / F ?ADM Date: // ? Loc: HO.US ? Attending Dr: Moses Mccoy MD ? Ordering Physician: Moses Mccoy MD ?? Date of Service: 05/26/24 ?? Procedure(s): US renal BI ?? Accession Number(s): [id number] ? cc: Moses Mccoy MD; ANTHONY RUIZ NP ? CLINICAL HISTORY: N20.0 - Calculus of kidney ? US renal with Color Doppler ? Comparison: CT/SR - CT ABDOMEN PELVIS W IV CON - 03/20/24 18:22 EST ?? US/SR - US ABDOMEN COMPLETE - 11/05/23 08:43 EDT ?? CT/ND/SR - CT ABDOMEN WO/W IV CON - 09/05/23 16:27 EDT ?? US/ND/SR - US RENAL BI - 06/04/23 12:55 [...] signed by Diogo Plasencia MD in OV> ?05/27/24 1006 ? DD/ 1005 ? TD/TT: 05/27/24 1005 ? Asphalt Tile Floor Layer: ? Procedure Note Vinicius Frederick - 05/27/2024 [address] [place] [address] Ultrasound Report Signed Patient: Nuvia Fay EMR #: [id number] : 1Acct:[id number] Age/Sex: 63 / FADM Date: 05/26/24 Loc: HO.US Attending Dr: Moses Mccoy MD Ordering Physician: Moses Mccoy MD Date of Service: 05/26/24 Procedure(s): US renal BI Accession Number(s): [id number] cc: Moses Mccoy MD; ANTHONY RUIZ NP CLINICAL HISTORY: N20.0 - Calculus of kidney US renal with Color Doppler Comparison: CT/SR - CT ABDOMEN PELVIS W IV CON - 03/20/24 18:22 EST US/SR - US ABDOMEN COMPLETE - 11/05/23 08:[address]/ND/SR - CT ABDOMEN WO/W IV CON - 09/05/23 16:27 EDT US/ND/SR - US RENAL BI - 06/04/23 12:55 [...] 05/27/24 1006 DD/ 1005 TD/TT: 05/27/24 1005 Asphalt Tile Floor Layer: us [facility] External Provider IMG US PROCEDURES Final Result * (ABNORMAL) Glucose, Whole Blood (05/27/2024 8:16 AM EDT) Glucose, Whole Blood 146(H) 60 - 115 mg/dL [facility] Comment:METER #: [id number] 05/27/2024 8:16 AM EDT 05/27/2024 8:20 AM EDT us Generic External Data Provider LAB BLOOD ORDERAB LES Final Result [facility] [address] [place] [address] [phone] * Drug Monitoring, Panel 1, Screen, Urine (05/27/2024 8:07 AM EDT) Opiate Screen Urine Not Detected Not Detect [facility] Comment:Opiate cut-off is 30 0 ng/mL.Positive results are unconfirmed and should not be used fornon-medical purposes. Barbiturates, Urine Not Detected Not Detect [facility] Comment:Barbiturate cut-off is 200 ng/mL.Positive results are unconfirmed and should not be used fornon-medical purposes. Phencyclidine Screen Urine Not Detected Not Detect [facility] Comment:Phencyclidine cut-of f is 25 ng/mL.Positive results are unconfirmed and should not be used fornon-medical purposes. Amphetamine Screen Urine Not Detected Not Detect [facility] Comment:Amphetamine cut-off is 1000 ng/mL.Positive results are unconfirmed and should not be used fornon-medical purposes. Benzodiazepines Screen Urine Not Detected Not Detect [facility] Comment:Benzodiazepine cut-o ff is 200 ng/mL.Positive results are unconfirmed and should not be used fornon-medical purposes. Cocaine Screen Urine Not Detected Not Detect [facility] Comment:Cocaine cut-off is 3 00 ng/mL.Positive results are unconfirmed and should not be used fornon-medical purposes. Cannabinoid Screen Urine Not Detected Not Detect [facility] Comment:Cannabinoid cut-off is 50 ng/mL.Positive results are unconfirmed and should not be used fornon-medical purposes. Methadone Screen, Urine Not Detected Not Detect ng/mL [facility] Comment:Methadone cut-off is 300 ng/mL.Positive results are unconfirmed and should not be used fornon-medical purposes. FENTANYL URINE Not Detected Not Detect [facility] Comment:Fentanyl cut-off is 1 ng/mL.Positive results are unconfirmed and should not be used fornon-medical purposes. Oxycodone Urine Screen Not Detected Not Detect ng/mL [facility] Comment:Oxycodone cut-off is 100 ng/mL.Positive results are unconfirmed and should not be used fornon-medical purposes. Buprenorphine Screen Not Detected Not Detect ng/mL [facility] Comment:Buprenorphine cut-of f is 5 ng/mL.Positive results are unconfirmed and should not be used fornon-medical purposes. 05/27/2024 8:07 AM EDT 05/27/2024 8:13 AM EDT us Generic External Data Provider LAB URINE ORDERAB LES Final Result Performing Organization Address City/State/[facility] Co de Phone Number [facility] [address] [place] [address] [phone] documented in this encounter Visit Diagnoses Not on filedocumented in this encounter Additional Health Concerns Assessment Noted Time PHQ-9 Depression Total Score: 12 024 2:58 PM EDT documented as of this encounter Care Teams Gear Room Keeper Relationship Specialty Start Date End Date Anthony Ruiz ANP [address] [place] [address] PCP - General Family Medicine 09/23/19 Yuri Pierre, MikeD [address] [place] [address] Pharmacist Internal Medicine 05/05/24 Basilio Hall MD [address] [place] [address] Cardiology 05/17/24 Ron Preciado MD [address] [place] [address] Pulmonary Disease 05/17/24 documented as of this encounter
--- OUTSIDE RECORDS SUMMARY | 2024-05-31 14:51 | XMS_ITS | Encounter Summary ---
Author Organization [facility] Address 75 [facility] 7t [place] [address] Care Team Providers Care Local Tanker Truck Driver Name Role Phone Sariah Vickers Primary Care Provider Yuri Pierre PharmD Unavailable [phone] Basilio Hall MD Unavailable [phone] Ron Preciado MD Unavailable [phone] Reason for Visit * Reason Comments Med Refill Encounter Details Date Type Department Care Team (Late st Contact Info) Description 07/17/2022 Refill [facility] MEDICINE [address] [place] [address] Sariah Vickers ANP [address] [place] [address] Neck pain Social History Tobacco Use Types [...] 07/02/2024 11:00 AM EDT Clinical Support [address] [address] Azeb Hall, RN 505 [place] [address] 07/15/2024 1:00 PM EDT Office Visit [facility] MEDICINE [address] [place] [address] Sariah Vickers ANP [address] [place] [address] 08/04/2024 10:00 AM EDT Medication Management [address] [address] Yuri Pierre, Dileep [address] [place] [address] 08/04/2024 1:00 PM EDT Office Visit [facility] ADULT DENTAL [address] [place] [address] Nuvia Duarte [address] [place] [address] documented as of this encounter Visit Diagnoses Diagnosis Neck pain Cervicalgia documented in this encounter Care Teams Local Tanker Truck Driver Relationship Specialty Start Date End Date Sariah Vickers ANP [address] [place] [address] PCP - General Family Medicine 09/23/19 Yuri Pierre, PharmD [address] [place] [address] Pharmacist Internal Medicine 05/05/24 Basilio Hall MD [address] [place] [address] Cardiology 05/17/24 Ron Preciado MD [address] [place] [address] Pulmonary Disease 05/17/24 documented as of this encounter
--- OUTSIDE RECORDS SUMMARY | 2024-05-31 14:51 | XMS_ITS | Encounter Summary ---
Author Organization [employer] Address 75 [facility] 7t [place] [address] Care Team Providers Care Motor Scooter Repairer Name Role Phone Sariah Vickers Primary Care Provider [phone] Yuri Pierre PharmD Unavailable [phone] Basilio Hall MD Unavailable [phone] Ron Preciado MD Unavailable [phone] Reason for Visit * Reason Comments Med Refill Encounter Details Date Type Department Care Team (Late st Contact Info) Description 07/10/2023 Refill [facility] [address] [place], [place] [phone] Sariah Vickers ANP 230 [place], [place] [phone] Chronic SI joint pain Social History Tobacco [...] EDT Clinical Support [facility] MEDICINE [address] [place] [address] Azeb Hall, MARTIN [address] [place] [address] 07/15/2024 1:00 PM EDT Office Visit [facility] MED[facility] [address] [place] [address] Sariah Vickers, ANP [address] [place] [address] 08/04/2024 10:00 AM EDT Medication Management [facility] [address] [place] [address] Yuri Pierre, PharmD [address] [place] [address] 08/04/2024 1:00 PM EDT Office Visit [facility] ADULT DENTAL [address] [place] [address] Nuvia Duarte [address] [place] [address] documented as of this encounter Goals Goal [...] documented as of this encounter Care Teams Motor Scooter Repairer Relationship Specialty Start Date End Date Sariah Vickers ANP [address] [place] [address] PCP - General Family Medicine 09/23/19 Yuri Pierre PharmD [address] [place] [address] Pharmacist Internal Medicine 05/05/24 Basilio Hall MD [address] [place] [address] Cardiology 05/17/24 Ron Preciado MD [address] [place] [address] Pulmonary Disease 05/17/24 documented as of this encounter
== END 2024-05-31 13:09 | disposition home or self-care (01) ==
LOC: HO.HGS 12:56
PROVIDERS: PCP Nurse Practitioner Primary Care; Visit Provider Surgery
DX: L03.311 Cellulitis of abdominal wall (principal)
CPT/HCPCS: 99213

== ENCOUNTER → 2024-05-31 12:56 | Outpatient (BNVA) | payer OTHER, SELFPAY | PROVIDERS: PCP Nurse Practitioner Primary Care; Visit Provider Surgery | DX: L03.311 Cellulitis of abdominal wall (principal); Z09 Encounter for follow-up examination after completed treatment for conditions other than malignant neoplasm; Z87.19 Personal history of other diseases of the digestive system; Z98.890 Other specified postprocedural states | CPT/HCPCS: 99212 ==

== ENCOUNTER 2024-06-08 10:59 | Outpatient (AMB) | payer OTHER, SELFPAY ==
--- NOTE | 2024-06-08 11:03 | MHC.OFFVIS ---
Vital Signs 06/08/24 11:11 Weight 197 lb BP 125/77 Blood Pressure Location Rt brachial Position Sitting Pulse 88 Intake Visit Reasons: S/P umbilical hernia w/mesh Intake Note: Patient here s/p open umbilical herniorrhaphy with Bard mesh. Reports incision healing well. Patient c/o: concern with adhesive stuck along umbilical incision. Surgery: 05-27-2024 Housekeeping Coordinator Required: No Accompanied by: Self / Same As Patient Allergies Fish Containing Products Allergy (Intermediate, Verified 06/08/24 11:10) Swelling vancomycin Allergy (Intermediate, Verified 06/08/24 11:10) Rash aspirin [Aspirin] Allergy (Mild, Verified 06/08/24 11:10) ITCHY THROAT azithromycin Allergy (Unknown, Verified 06/08/24 11:10) Unknown naproxen Allergy (Unknown, Verified 06/08/24 11:10) Unknown simvastatin Allergy (Unknown, Verified 06/08/24 11:10) Unknown onion [ONION] Adverse Reaction (Mild, Verified 06/08/24 11:10) RED FACE Medication List - Last Reconciled 06/08/24 by Yaniv Frank MD acetaminophen 650 mg PO Q6H PRN albuterol sulfate 90 mcg/actuation (Ventolin HFA) 2 puffs inhalation Q4-6H PRN amlodipine 10 mg PO BEDTIME atorvastatin 80 mg PO BEDTIME blood sugar diagnostic (FreeStyle Lite Strips) TEST BLOOD SUGAR FOUR TIMES DAILY blood-glucose meter (FreeStyle Flash System kit) As directed blood-glucose sensor (FreeStyle Jalil 3 Plus Sensor device) Use daily As directed to monitor glucose blood-glucose,brick maker,cont (FreeStyle Jalil 3 [place]) Use daily As directed to monitor blood glucose buspirone 15 mg PO TID cetirizine 10 mg PO QPM clonazepam 0.5 mg PO BEDTIME PRN clonazepam (Klonopin) 1 mg PO DAILY docusate sodium (Stool Softener) 100 mg PO BID enalapril maleate 20 mg PO DAILY fluticasone propionate 50 mcg/actuation 2 sprays intranasal QAM gabapentin 400 mg PO BEDTIME insulin lispro (Humalog KwikPen (U-100) Insulin) 4 units subcut TID PRN ipratropium-albuterol 0.5 mg-3 mg(2.5 mg base)/3 mL 3 mL inhalation Q6H PRN ipratropium-albuterol 20-100 mcg/actuation (Combivent Respimat) 1 puff inhalation BID PRN MDD 6 puffs per day Lactobac. rhamnosus GG-inulin 10 billion cell -200 mg ([facility] [employer] [facility]) 1 cap PO DAILY lancets (TRUEplus Lancets) TEST BLOOD SUGAR FOUR TIMES DAILY leg brace (Knee Support Brace) As directed levothyroxine 75 mcg PO QAM lidocaine 5% 1 patch topical DAILY PRN meclizine 25 mg PO TID PRN metoclopramide HCl 5 mg PO TID montelukast 10 mg PO BEDTIME aaqtaseduskx-rgdb-zlhts acid 18-400 mg-mcg (Certavite-Antioxidant) 1 tab PO DAILY omalizumab 300 mg subcut Q2W 28 days omeprazole 20 mg PO BID pen needle, diabetic (UltiCare Pen Needle) USE FOUR TIMES DAILY plecanatide (Trulance) 3 mg PO BEDTIME potassium chloride ER 20 mEq PO BID risperidone 0.5 mg PO BID semaglutide (Ozempic) 0.5 mg (0.736 mL) subcut SA sennosides (senna) 17.2 mg (2 x 8.6 mg) PO BEDTIME tiotropium bromide (Spiriva with HandiHaler) 1 cap inhalation DAILY tramadol 50 mg PO Q12H PRN zolpidem 10 mg PO BEDTIME PRN HPI Comments Details: Patient was to follow up. She has complete resolution of her abdominal wall symptoms. She is completing her antibiotic course. [facility] Medical History (Updated 05/31/24 @ 00:00 by Doris Guo) Arthritis Thyroid disease Bilateral renal cysts Right bundle branch block Dental calculus Depression Varicose veins of left lower extremity Ectatic aorta Paresthesia Paresis of one side of face Neck pain Insomnia disorder, with non-sleep disorder mental comorbidity Increased immunoglobulin Constipation Aneurysm of left internal carotid artery Abnormal ultrasound of kidney Type 2 diabetes mellitus History of kidney stones Abnormal finding on ultrasound Tear of medial meniscus of left knee Leg pain Kidney stone on left side MOCK (dyspnea on exertion) Patellofemoral arthritis of left knee Trochanteric bursitis of right hip COVID-19 Carpal tunnel syndrome of right wrist Renal calculi UTI (urinary tract infection) Allergic rhinitis Anxiety and depression Fibromyalgia HTN (hypertension) PTSD (post-traumatic stress disorder) Preop pulmonary/respiratory exam Vertigo Diabetes Asthma Chest pain Tubular adenoma of colon Vulvovaginitis Acute asthma exacerbation Candidiasis of mouth and esophagus Bronchitis Spondylosis of cervical region without myelopathy or radiculopathy Bronchitis COPD exacerbation Yeast infection Papanicolaou smear for cervical cancer screening Bilateral hand pain Bilateral knee pain Low vitamin D level Dry mouth Environmental allergies Severe persistent asthma Non-toxic multinodular goiter Hypothyroidism Type 2 diabetes mellitus with hyperglycemia DVT (deep venous thrombosis) Menopausal state Cocaine abuse Surgical History (Updated 06/08/24 @ 11:13 by Yaniv Frank MD) Hx of carpal tunnel repair History of esophagogastroduodenoscopy (EGD) H/O colonoscopy with polypectomy History of selective injection of anesthetic agent around lumbar nerve root Hx of right breast biopsy History of hysterectomy History of lithotripsy Family History Father No problems noted. 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 Incision clean dry and intact. Cellulitis has resolved entirely. Assessment & Plan Assessment & Plan (1) Status post umbilical hernia repair, follow-up exam: Code(s): Z09 - Encounter for follow-up examination after completed treatment for conditions other than malignant neoplasm Category: Surgical (2) Encounter for postoperative wound check: Code(s): Z48.89 - Encounter for other specified surgical aftercare Category: Surgical Plan Patient was been given local instructions, and will otherwise follow-up p.r.n.. All questions answered. Coding Level of Care Code Global (43098) Diagnoses Status post umbilical hernia repair, follow-up exam Z09 Encounter for postoperative wound check Z48.89
[2024-06-08 11:11] VITALS: BP 125/77; PULSE 88
--- OUTSIDE RECORDS SUMMARY | 2024-06-08 13:05 | XMS_ITS | Encounter Summary ---
Author Organization [employer] Address [address] [facility] 7t [place] [address] Care Team Providers Care Facilities Engineer Name Role Phone Sariah Vickers Primary Care Provider [phone] Yuri Pierre PharmD Unavailable [phone] Basilio Hall MD Unavailable [phone] Ron Preciado MD Unavailable [phone] Reason for Visit * Reason Onset Date Comments Prior Authorization 06/01/2024 Encounter Details Date Type Department Care Team (Late st Contact Info) Description 06/01/2024 Telephone [facility]INE [address] [place] [address] Sariah Vickers ANP [address] [place], [place] [phone] Prior Authorization Social History Tobacco Use Types [...] Telephone Encounter - Candy Bains RN - 06/04/2024 10:35 AM EDT PA packet generated and placed on PCP's desk. Pending signature. * Telephone Encounter - Eduardo Weinstein - 06/01/2024 11:59 AM EDT tC from pt requesting pa for med Continuous Glucose Sensor (FreeStyle Jalil 2 Plus Sensor) [facility]. Contact pt at [phone] documented in this encounter Plan of Treatment Upcoming Encounters Date Type Department Care Team (Late st Contact Info) Description 07/02/2024 11:00 AM EDT Clinical Support [facility] [address] [place] [address] Azeb Hall RN 505 [place] [address] 07/15/2024 1:00 PM EDT Office Visit [facility] [address] [place] [address] Sariah Vickers ANP [address] [place], [place] 08/04/2024 10:00 AM EDT Medication Management [facility] [address] [place] [address] Yuri Pierre, PharmD [address] [place] [address] 08/04/2024 1:00 PM EDT Office Visit [facility] ADULT DENTAL [address] [place] [address] Brendan Duartearis [address] [place] [address] documented as of this encounter Goals Goal [...] documented as of this encounter Care Teams Facilities Engineer Relationship Specialty Start Date End Date Sariah Vickers ANP [address] [place] [address] PCP - General Family Medicine 09/23/19 Yuri Pierre, PharmD [address] [place] [address] Pharmacist Internal Medicine 05/05/24 Basilio Hall MD [address] [place] [address] Cardiology 05/17/24 Ron Preciado MD [address] [place] [address] Pulmonary Disease 05/17/24 documented as of this encounter
--- OUTSIDE RECORDS SUMMARY | 2024-06-08 13:05 | XMS_ITS | Encounter Summary ---
Author Organization [facility] Address [address] [facility] 7t [place] [address] Care Team Providers Care Caul Puller Name Role Phone Sariah Vickers Primary Care Provider [phone] Yuri Pierre PharmD Unavailable [phone] Basilio Hall MD Unavailable [phone] Ron Preciado MD Unavailable [phone] Encounter Details Date Type Department Care Team (Latest Contact Info) Description 06/20/2021 Abstract [facility] CONVERSIONS Dental, Provider, DDS Social [...] 07/02/2024 11:00 AM EDT Clinical Support [facility] MED[facility] [address] [place] [address] Azeb Hall RN 505 [place] [address] 07/15/2024 1:00 PM EDT Office Visit [facility] [address] [place] [address] Sariah Vickers ANP [address] [place] [address] 08/04/2024 10:00 AM EDT Medication Management [facility] MED[facility] 230 [place] [address] Yuri Pierre, PharmBear 230 [place] [address] 08/04/2024 1:00 PM EDT Office Visit [facility] ADULT DENTAL 230 [place] [address] Nuvia Duarte 230 [place] [address] documented as of this encounter Visit Diagnoses Not on filedocumented in this encounter Care Teams Caul Puller Relationship Specialty Start Date End Date Sariah Vickers ANP [address] [place] [address] PCP - General Family Medicine 09/23/19 Yuri Pierre, PharmD [address] [place] [address] Pharmacist Internal Medicine 05/05/24 Basilio Hall MD [address] [place] [address] Cardiology 05/17/24 Ron Preciado MD [address] [place] [address] Pulmonary Disease 05/17/24 documented as of this encounter
--- OUTSIDE RECORDS SUMMARY | 2024-06-08 13:05 | XMS_ITS | Encounter Summary ---
Author Organization [employer] [facility] Address 75 [facility] 7t [place] [address] Care Team Providers Care Aircraft Air Conditioning Mechanic Name Role Phone Sariah Vickers Primary Care Provider [phone] Yuri Pierre PharmD Unavailable [phone] Basilio Hall MD Unavailable [phone] Ron Preciado MD Unavailable [phone] Encounter Details Date Type Department Care Team (Latest Contact Info) Description 04/14/[address] [facility] CONVERSIONS Dental, Provider, DDS Social History [...] EDT Clinical Support [facility] MEDICINE [address] [place] [address] Azeb Hall RN 505 [place] [address] 07/15/2024 1:00 PM EDT Office Visit [facility] MED[facility] [address] [place] [address] Sariah Vickers ANP [address] [place] [address] 08/04/2024 10:00 AM EDT Medication Management [facility] [address] [place] [address] Yuri Pierre, PharmBear 230 [place] [address] 08/04/2024 1:00 PM EDT Office Visit [facility] ADULT DENTAL [address] [place] [address] Nuvia Duarte [address] [place] [address] documented as of this encounter Visit Diagnoses Not on filedocumented in this encounter Care Teams Aircraft Air Conditioning Mechanic Relationship Specialty Start Date End Date Sariah Vickers ANP [address] [place] [address] PCP - General Family Medicine 09/23/19 Yuri Pierre, PharmD [address] [place] [address] Pharmacist Internal Medicine 05/05/24 Basilio Hall MD [address] [place] [address] Cardiology 05/17/24 Ron Preciado MD [address] [place] [address] Pulmonary Disease 05/17/24 documented as of this encounter
--- OUTSIDE RECORDS SUMMARY | 2024-06-08 13:05 | XMS_ITS | Encounter Summary ---
Author Organization [employer] Address 75 [facility] 7t [place] [address] Care Team Providers Care Pulp Plant Supervisor Name Role Phone Sariah Vickers Primary Care Provider Yuri Pierre PharmD Unavailable [phone] Basilio Hall MD Unavailable [phone] Ron Preciado MD Unavailable [phone] Reason for Visit * Reason Comments Med Refill Encounter Details Date Type Department Care Team (Late st Contact Info) Description 09/13/2022 Refill [facility] PEDS [address] [place] [address] Sariah Vickers, ANP 230 [place] [address] Severe persistent allergic asthma without complication Social [...] 07/02/2024 11:00 AM EDT Clinical Support [address] [address] Azeb Hall RN 505 [place] [address] 07/15/2024 1:00 PM EDT Office Visit [facility] MEDICINE [address] [place] [address] Sariah Vickers ANP [address] [place] [address] 08/04/2024 10:00 AM EDT Medication Management [address] [address] Yuri Pierre, Dileep [address] [place] [address] 08/04/2024 1:00 PM EDT Office Visit [facility] ADULT DENTAL [address] [place] [address] Felicia, Nuvia [address] [place] [address] documented as of this encounter Visit Diagnoses Diagnosis Severe persistent allergic asthma without complication documented in this encounter Care Teams Pulp Plant Supervisor Relationship Specialty Start Date End Date Sariah Vickers ANP [address] [place] [address] PCP - General Family Medicine 09/23/19 Yuri Pierre, PharmD [address] [place] [address] Pharmacist Internal Medicine 05/05/24 Basilio Hall MD 5[address] [place] [address] Cardiology 05/17/24 Ron Preciado MD [address] [place] [address] Pulmonary Disease 05/17/24 documented as of this encounter
--- OUTSIDE RECORDS SUMMARY | 2024-06-08 13:05 | XMS_ITS | Encounter Summary ---
Author Organization [employer] [facility] Address [address] [facility] 7t [place] [address] Care Team Providers Care Motel Manager Name Role Phone Sariah Vickers Primary Care Provider [phone] Yuri Pierre PharmD Unavailable [phone] Basilio Hall MD Unavailable [phone] Ron Preciado MD Unavailable [phone] Encounter Details Date Type Department Care Team (Late st Contact Info) Description 01/09/2022 Abstract [facility] ADULT DENTAL 230 [place] [address] Dental, Provider, DDS Social History Tobacco Use [...] Description 07/02/2024 11:00 AM EDT Clinical Support [facility] MEDICINE [address] [place] [address] Azeb Hall RN 505 [place] [address] 07/15/2024 1:00 PM EDT Office Visit [facility] MEDICINE [address] [place] [address] Sariah Vickers ANP 230 [place] [address] 08/04/2024 10:00 AM EDT Medication Management [facility] MEDICINE [address] [place] [address] Yuri Pierre, Dileep 230 [place] [address] 08/04/2024 1:00 PM EDT Office Visit [facility] ADULT DENTAL [address] [place] [address] FeliciaNuvia [address] [place] [address] documented as of this encounter Procedures Procedure [...] on filedocumented in this encounter Care Teams Motel Manager Relationship Specialty Start Date End Date Sariah Vickers ANP [address] [place] [address] PCP - General Family Medicine 09/23/19 Yuri Pierre, MikeD 230 [place] [address] Pharmacist Internal Medicine 05/05/24 Basilio Hall MD [address] [place] [address] Cardiology 05/17/24 Ron Precidao MD [address] [place] [address] Pulmonary Disease 05/17/24 documented as of this encounter
--- OUTSIDE RECORDS SUMMARY | 2024-06-08 13:05 | XMS_ITS | Encounter Summary ---
Author Organization [employer] [facility] Address [address] [place] [address] 7t [place] [address] Care Team Providers Care Server Software Engineer Name Role Phone Sariah Vickers Primary Care Provider Yuri Pierre PharmD Unavailable [phone] Basilio Hall MD Unavailable [phone] Ron Preciado MD Unavailable [phone] Reason for Visit * Reason Onset Date Comments Nurse Triage 11/01/2022 Encounter Details Date Type Department Care Team (Late st Contact Info) Description 11/01/2022 Telephone [facility] MEDICINE 230 [place] [address] Sariah Vickers ANP 230 [place] [address] Nurse Triage Social History Tobacco Use Types [...] 11/01/2022 3:51 PM EDT Triage call with [place] [employer] [place] [id number] Pt reports blood sugars have been high [...] Description 07/02/2024 11:00 AM EDT Clinical Support [facility] [address] [place] [address] Azeb Hall RN 505 [place] [address] 07/15/2024 1:00 PM EDT Office Visit [facility] MED[facility]INE [address] [place] [address] Sariah Vickers ANP 230 [place] [address] 08/04/2024 10:00 AM EDT Medication Management [facility] MED[facility] [address] [place] [address] Yuri Pierre PharmD 230 [place] [address] 08/04/2024 1:00 PM EDT Office Visit [facility] ADULT DENTAL 230 [place] [address] Nuvia Duarte 230 [place] [address] documented as of this encounter Goals Goal [...] on filedocumented in this encounter Care Teams Server Software Engineer Relationship Specialty Start Date End Date Sariah Vickers ANP 230 [place] [address] PCP - General Family Medicine 09/23/19 Yuri Pierre, PharmD 230 [place] [address] Pharmacist Internal Medicine 05/05/24 Basilio Hall MD [address] [place] [address] Cardiology 05/17/24 Ron Preciado MD [address] [place] [address] Pulmonary Disease 05/17/24 documented as of this encounter
--- OUTSIDE RECORDS SUMMARY | 2024-06-08 13:05 | XMS_ITS | Encounter Summary ---
Author Organization [employer] [facility] Address [address] [facility] 7t [place] [address] Care Team Providers Care Tumbling 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 Name Role Phone Sariah Vickers Primary Care Provider [phone] Yuri Pierre PharmD Unavailable [phone] Basilio Hall MD Unavailable [phone] Ron Preciado MD Unavailable [phone] Encounter Details Date Type Department Care Team (Latest Contact Info) Description 05/15/2018 Abstract [facility] CONVERSIONS Dental, Provider, DDS Social [...] EDT Clinical Support [facility] MEDICINE [address] [place] [address] Azeb Hall RN 505 [place] [address] 07/15/2024 1:00 PM EDT Office Visit [facility] MED[facility]INE [address] [place] [address] Sariah Vickers ANP [address] [place] [address] 08/04/2024 10:00 AM EDT Medication Management [facility] MEDICINE [address] [place] [address] Yuri Pierre, PharmBear 230 [place] [address] 08/04/2024 1:00 PM EDT Office Visit [facility] ADULT DENTAL [address] [place] [address] Nuvia Duarte [address] [place] [address] documented as of this encounter Visit Diagnoses Not on filedocumented in this encounter Care Teams Tumbling 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 Relationship Specialty Start Date End Date Sariah Vickers ANP 230 [place] [address] PCP - General Family Medicine 09/23/19 Yuri Pierre, PharmD [address] [place] [address] Pharmacist Internal Medicine 05/05/24 Basilio Hall MD [address] [place] [address] Cardiology 05/17/24 Ron Preciado MD [address] [place] [address] Pulmonary Disease 05/17/24 documented as of this encounter
--- OUTSIDE RECORDS SUMMARY | 2024-06-08 13:05 | XMS_ITS | Encounter Summary ---
Author Organization [employer] Address [address] [facility] 7t [place] [address] Care Team Providers Care Lab Systems Analyst Name Role Phone Sariah Vickers KAYLEE Primary Care Provider [phone] Yuri Pierre PharmD Unavailable [phone] Basilio Hall MD Unavailable [phone] Ron Preciado MD Unavailable [phone] Reason for Visit * Reason Comments Med Refill Encounter Details Date Type Department Care Team (Late st Contact Info) Description 06/03/2024 Refill [facility] MED[facility] 230 [place] [address] Debra Faye MD 230 [place], [place] [phone] Severe persistent asthma without complication Social History [...] EDT Clinical Support [facility] [address] [place] [address] Azeb Hall, MARTIN 505 [place] [address] 07/15/2024 1:00 PM EDT Office Visit [facility] MED[facility] [address] [place] [address] Sariah Vickers, ANP 230 [place] [address] 08/04/2024 10:00 AM EDT Medication Management [facility] [address] [place] [address] Yuri Pierre, PharmD [address] [place] [address] 08/04/2024 1:00 PM EDT Office Visit [facility] ADULT DENTAL [address] [place] [address] Nuvia Duarte [address] [place] [address] documented as of this encounter Goals Goal [...] documented as of this encounter Care Teams Lab Systems Analyst Relationship Specialty Start Date End Date Sariah Vickers ANP [address] [place] [address] PCP - General Family Medicine 09/23/19 Yuri Pierre PharmD [address] [place] [address] Pharmacist Internal Medicine 05/05/24 Basilio Hall MD [address] [place] [address] Cardiology 05/17/24 Ron Preciado MD [address] [place] [address] Pulmonary Disease 05/17/24 documented as of this encounter
--- OUTSIDE RECORDS SUMMARY | 2024-06-08 13:05 | XMS_ITS | Encounter Summary ---
Author Organization [facility] Address [address] [facility] 7t [place] [address] Care Team Providers Care Loading Inspector Name Role Phone Sariah Vickers Primary Care Provider [phone] Yuri Pierre PharmD Unavailable [phone] Basilio Hall MD Unavailable [phone] Ron Preciado MD Unavailable [phone] Reason for Visit * Reason Onset Date Comments Durable Medical Equipment 03/15/2022 Encounter Details Date Type Department Care Team (Late st Contact Info) Description 03/15/2022 Telephone [facility] MEDICINE [address] [place] [address] Sariah Vickers ANP [address] [place], [place] [phone] Durable Medical Equipment Social History Tobacco Use [...] 07/02/2024 11:00 AM EDT Clinical Support [address] [address] Azeb Hall, RN [address] [place] [address] 07/15/2024 1:00 PM EDT Office Visit [facility] MEDICINE [address] [place] [address] Sariah Vickers ANP [address] [place] [address] 08/04/2024 10:00 AM EDT Medication Management [facility] [address] [place] [address] Yuri Pierre, PharmD [address] [place] [address] 08/04/2024 1:00 PM EDT Office Visit [facility] ADULT DENTAL [address] [place] [address] Nuvia Duarte [address] [place] [address] documented as of this encounter Visit Diagnoses Not on filedocumented in this encounter Care Teams Loading Inspector Relationship Specialty Start Date End Date Sariah Vickers ANP [address] [place] [address] PCP - General Family Medicine 09/23/19 Yuri Pierre, MikeD 230 [place] [address] Pharmacist Internal Medicine 05/05/24 Basilio Hall MD [address] [place] [address] Cardiology 05/17/24 Ron Preciado MD [address] [place] [address] Pulmonary Disease 05/17/24 documented as of this encounter
--- OUTSIDE RECORDS SUMMARY | 2024-06-08 13:05 | XMS_ITS | Encounter Summary ---
Author Organization [facility] Address [address] [facility] 7t [place] [address] Care Team Providers Care Event Marketing Representative Name Role Phone Sariah Vickers Primary Care Provider [phone] Yuri Pierre PharmD Unavailable [phone] Basilio Hall MD Unavailable [phone] Ron Preciado MD Unavailable [phone] Encounter Details Date Type Department Care Team (Late st Contact Info) Description 02/05/2022 Abstract [facility] MEDICINE 230 [place] [address] Sariah Vickers ANP 230 [place] [address] Social History Tobacco Use Types Packs/Day Years [...] Description 07/02/2024 11:00 AM EDT Clinical Support [address] [address] Azeb Hall, RN 505 [place] [address] 07/15/2024 1:00 PM EDT Office Visit [address] [address] Sariah Vickers ANP [address] [place] [address] 08/04/2024 10:00 AM EDT Medication Management [address] [address] Yuri Pierre, Dileep [address] [place] [address] 08/04/2024 1:00 PM EDT Office Visit [facility] ADULT DENTAL [address] [place] [address] FeliciaBrendanNuvia [address] [place] [address] documented as of this encounter Visit Diagnoses Not on filedocumented in this encounter Care Teams Event Marketing Representative Relationship Specialty Start Date End Date Sariah Vickers ANP [address] [place] [address] PCP - General Family Medicine 09/23/19 Yuri Pierre, PharmD [address] [place] [address] Pharmacist Internal Medicine 05/05/24 Basilio Hall MD 596 [place] [address] Cardiology 05/17/24 Ron Preciado MD [address] [place] [address] Pulmonary Disease 05/17/24 documented as of this encounter
--- OUTSIDE RECORDS SUMMARY | 2024-06-08 13:05 | XMS_ITS | Encounter Summary ---
Author Organization [facility] Address [address] [facility] 7t [place] [address] Care Team Providers Care Fullerette Name Role Phone Sariah Vickers Primary Care Provider [phone] Yuri Pierre PharmD Unavailable [phone] Basilio Hall MD Unavailable [phone] Ron Preciado MD Unavailable [phone] Reason for Visit * Reason Comments Med Refill Encounter Details Date Type Department Care Team (Late st Contact Info) Description 08/22/2023 Refill [facility] MEDICINE 230 [place] [address] Sariah Vickers ANP 230 [place] [address] Neck pain Social History Tobacco Use Types [...] EDT Clinical Support [facility] MEDICINE [address] [place] [address] Azeb Hall, RN 505 [place] [address] 07/15/2024 1:00 PM EDT Office Visit [facility] MEDICINE [address] [place] [address] Sariah Vickers, KAYLEE 230 [place] [address] 08/04/2024 10:00 AM EDT Medication Management [facility] MEDICINE [address] [place] [address] Yuri Pierre, PharmD [address] [place] [address] 08/04/2024 1:00 PM EDT Office Visit [facility] ADULT DENTAL [address] [place] [address] Nuvia Duarte 230 [place] [address] documented as of this encounter Goals Goal [...] documented as of this encounter Care Teams Fullerette Relationship Specialty Start Date End Date Sariah Vickers ANP 230 [place] [address] PCP - General Family Medicine 09/23/19 Yuri Pierre PharmD 230 [place] [address] Pharmacist Internal Medicine 05/05/24 Basilio Hall MD 596 [place] [address] Cardiology 05/17/24 Ron Preciado MD [address] [place] [address] Pulmonary Disease 05/17/24 documented as of this encounter
--- OUTSIDE RECORDS SUMMARY | 2024-06-08 13:05 | XMS_ITS | Encounter Summary ---
Author Organization [employer] Address [address] [facility] 7t [place] [address] Care Team Providers Care Human Resources Analyst Name Role Phone Sariah Vickers KAYLEE Primary Care Provider [phone] Yuri Pierre PharmD Unavailable [phone] Basilio Hall MD Unavailable [phone] Ron Preciado MD Unavailable [phone] Reason for Visit * Reason Comments Med Refill Encounter Details Date Type Department Care Team (Late st Contact Info) Description 06/03/2024 Refill [facility] 230 [place], [place] [phone] Chava Presley MD 230 [place], [place] [phone] Neck pain Social History Tobacco Use Types [...] Support [facility] MEDICINE [address] [place] [address] Azeb Hall, MARITN 505 [place] [address] 07/15/2024 1:00 PM EDT Office Visit [facility] MEDICINE [address] [place] [address] Sariah Vickers ANP 230 [place] [address] 08/04/2024 10:00 AM EDT Medication Management [facility] MEDICINE [address] [place] [address] Yuri Pierre, PharmD [address] [place] [address] 08/04/2024 1:00 PM EDT Office Visit [facility] ADULT DENTAL [address] [place] [address] Nuvia Durate 230 [place] [address] documented as of this encounter Goals Goal [...] as of this encounter Care Teams Human Resources Analyst Relationship Specialty Start Date End Date Sariah Vickers ANP 230 [place] [address] PCP - General Family Medicine 09/23/19 Yuri Pierre, MikeD [address] [place] [address] Pharmacist Internal Medicine 05/05/24 Basilio Hall MD 596 [place] [address] Cardiology 05/17/24 Ron Preciado MD [address] [place] [address] Pulmonary Disease 05/17/24 documented as of this encounter
--- OUTSIDE RECORDS SUMMARY | 2024-06-08 13:05 | XMS_ITS | Encounter Summary ---
Author Organization [facility] Address [address] [facility] 7t [place] [address] Care Team Providers Care Farm Reporter Name Role Phone Sariah Vickers Primary Care Provider [phone] Yuri Pierre PharmD Unavailable [phone] Basilio Hall MD Unavailable [phone] Ron Preciado MD Unavailable [phone] Reason for Visit * Reason Comments Med Refill Encounter Details Date Type Department Care Team (Late st Contact Info) Description 02/06/2022 Refill [facility] MEDICINE 230 [place] [address] Sariah Vickers ANP 230 [place] [address] Social History Tobacco Use Types Packs/Day Years [...] 07/02/2024 11:00 AM EDT Clinical Support [address] [address] Azeb Hall, RN 505 [place] [address] 07/15/2024 1:00 PM EDT Office Visit [address] [address] Sariah Vickers ANP [address] [place] [address] 08/04/2024 10:00 AM EDT Medication Management [address] [address] Yuri Pierre, Dileep [address] [place] [address] 08/04/2024 1:00 PM EDT Office Visit [facility] ADULT DENTAL [address] [place] [address] Felicia, Nuvia 230 [place] [address] documented as of this encounter Visit Diagnoses Not on filedocumented in this encounter Care Teams Farm Reporter Relationship Specialty Start Date End Date Sariah Vickers ANP [address] [place] [address] PCP - General Family Medicine 09/23/19 Yuri Pierre, PharmD [address] [place] [address] Pharmacist Internal Medicine 05/05/24 Basilio Hall MD 596 [place] [address] Cardiology 05/17/24 Ron Preciado MD [address] [place] [address] Pulmonary Disease 05/17/24 documented as of this encounter
--- OUTSIDE RECORDS SUMMARY | 2024-06-08 13:05 | XMS_ITS | Encounter Summary ---
Author Organization [facility] Address [address] [facility] 7t [place] [address] Care Team Providers Care Business Advisor Name Role Phone Sariah Vickers Primary Care Provider [phone] Yuri Pierre PharmD Unavailable [phone] Basilio Hall MD Unavailable [phone] Ron Preciado MD Unavailable [phone] Reason for Visit * Reason Onset Date Comments Call Back Request 06/04/2024 Encounter Details Date Type Department Care Team (Late st Contact Info) Description 06/04/2024 Telephone [facility] MEDICINE 230 [place], [place] [phone] Sariah Vickers ANP 230 [place], [place] [phone] Call Back Request Social History Tobacco Use Types Packs/Day Years [...] Telephone Encounter - Yohana Quinn RN - 06/04/2024 4:08 PM EDT TC placed to pt with a student activities director to inform that PCP entered the order for a liver function blood test to be done in four weeks time. Indication for this is due to pt having elevated LFT's in the hospital. Pt advised that she should have this blood collected around the week of June 28. Pt stated understanding and had no further questions or concerns. * Telephone Encounter - Eduardo Weinstein - 06/04/2024 12:21 PM EDT TC from pt requesting a call back to discuss wheather she needs get some Blood taken out. Contact pt at [phone] documented in this encounter Plan of Treatment Upcoming Encounters Date Type Department Care Team (Late st Contact Info) Description 07/02/2024 11:00 AM EDT Clinical Support [facility] 230 [place], [place] [phone] Azeb Hall RN 505 [place] [address] 07/15/2024 1:00 PM EDT Office Visit [facility] MEDICINE [address] [place] [address] Sariah Vickers ANP [address] [place] [address] 08/04/2024 10:00 AM EDT Medication Management [facility] MEDICINE [address] [place] [address] Yuri Pierre, Dileep [address] [place] [address] 08/04/2024 1:00 PM EDT Office Visit [facility] ADULT DENTAL [address] [place] [address] Nuvia Duarte [address] [place] [address] documented as of this encounter Goals Goal [...] as of this encounter Care Teams Business Advisor Relationship Specialty Start Date End Date Sariah Vickers ANP [address] [place] [address] PCP - General Family Medicine 09/23/19 Yuri Pierre, Dileep [address] [place] [address] Pharmacist Internal Medicine 05/05/24 Basilio Hall MD 596 [place] [address] Cardiology 05/17/24 Ron Preciado MD [address] [place] [address] Pulmonary Disease 05/17/24 documented as of this encounter
--- OUTSIDE RECORDS SUMMARY | 2024-06-08 13:05 | XMS_ITS | Encounter Summary ---
Author Organization [employer] [facility] Address [address] [facility] 7t [place] [address] Care Team Providers Care Manager Global Communications Name Role Phone Sariah Vickers Primary Care Provider [phone] Yuri Pierre PharmD Unavailable [phone] Basilio Hall MD Unavailable [phone] Ron Preciado MD Unavailable [phone] Reason for Visit * Reason Comments Med Refill Encounter Details Date Type Department Care Team (Late st Contact Info) Description 03/03/[address] [facility] MEDICINE 230 [place] [address] Sariah Vickers ANP 230 [place] [address] Social History Tobacco Use Types Packs/Day Years [...] Description 07/02/2024 11:00 AM EDT Clinical Support [address] [address] Azeb Hall RN 505 [place] [address] 07/15/2024 1:00 PM EDT Office Visit [address] [address] Sariah Vickers ANP [address] [place] [address] 08/04/2024 10:00 AM EDT Medication Management [address] [address] Yuri Pierre PharmD [address] [place] [address] 08/04/2024 1:00 PM EDT Office Visit [facility] ADULT DENTAL [address] [place] [address] Felicia, Nuvia 230 [place] [address] documented as of this encounter Visit Diagnoses Not on filedocumented in this encounter Care Teams Manager Global Communications Relationship Specialty Start Date End Date Sariah Vickers ANP [address] [place] [address] PCP - General Family Medicine 09/23/19 Yuri Pierre, PharmD [address] [place] [address] Pharmacist Internal Medicine 05/05/24 Basilio Hall MD 596 [place] [address] Cardiology 05/17/24 Ron Preciado MD [address] [place] [address] Pulmonary Disease 05/17/24 documented as of this encounter
--- OUTSIDE RECORDS SUMMARY | 2024-06-08 13:05 | XMS_ITS | Encounter Summary ---
Author Organization [employer] Address 75 [facility] 7t [place] [address] Care Team Providers Care Client Technologies Analyst Name Role Phone Sariah Vickers Primary Care Provider [phone] Yuri Pierre PharmD Unavailable [phone] Basilio Hall MD Unavailable [phone] Ron Preciado MD Unavailable [phone] Reason for Visit * Reason Comments Med Refill Encounter Details Date Type Department Care Team (Late st Contact Info) Description 03/09/2024 Refill [facility] PEDS [address] [place] [address] Sariah Vickers, KAYLEE 230 [place] [address] Neck pain Social History Tobacco Use Types [...] 07/02/2024 11:00 AM EDT Clinical Support [facility] MEDICINE [address] [place] [address] Azeb Hall, MARTIN 505 [place] [address] 07/15/2024 1:00 PM EDT Office Visit [facility] MEDICINE [address] [place] [address] Sariah Vickers ANP 230 [place] [address] 08/04/2024 10:00 AM EDT Medication Management [facility] MEDICINE [address] [place] [address] Yuri Pierre, PharmD [address] [place] [address] 08/04/2024 1:00 PM EDT Office Visit [facility] ADULT DENTAL [address] [place] [address] Nuvia Duarte 230 [place] [address] documented as of this encounter Goals Goal [...] as of this encounter Care Teams Client Technologies Analyst Relationship Specialty Start Date End Date Sariah Vickers ANP 230 [place] [address] PCP - General Family Medicine 09/23/19 Yuri Pierre, MikeD [address] [place] [address] Pharmacist Internal Medicine 05/05/24 Basilio Hall MD 596 [place] [address] Cardiology 05/17/24 oRn Preciado MD [address] [place] [address] Pulmonary Disease 05/17/24 documented as of this encounter
--- OUTSIDE RECORDS SUMMARY | 2024-06-08 13:06 | XMS_ITS | Encounter Summary ---
Author Organization [facility] Address [address] [facility] 7t [place] [address] Care Team Providers Care Building Maintenance Engineer Name Role Phone Sariah Vickers Primary Care Provider [phone] Yuri Pierre PharmD Unavailable [phone] Basilio Hall MD Unavailable [phone] Ron Preciado MD Unavailable [phone] Reason for Visit * Reason Comments Med Refill Encounter Details Date Type Department Care Team (Late st Contact Info) Description 11/14/2023 Refill [facility] MEDICINE 230 [place] [address] Sariah Vickers ANP 230 [place] [address] Neck pain Social History Tobacco Use Types [...] EDT Clinical Support [facility] MEDICINE [address] [place] [address] Azeb Hall, RN 505 [place] [address] 07/15/2024 1:00 PM EDT Office Visit [facility] MEDICINE [address] [place] [address] Sariah Vickers, KAYLEE 230 [place] [address] 08/04/2024 10:00 AM EDT Medication Management [facility] MEDICINE [address] [place] [address] Yuri Pierre, PharmD [address] [place] [address] 08/04/2024 1:00 PM EDT Office Visit [facility] ADULT DENTAL [address] [place] [address] Nuvia Duarte 230 [place] [address] documented as of this encounter Goals Goal [...] documented as of this encounter Care Teams Building Maintenance Engineer Relationship Specialty Start Date End Date Sariah Vickers ANP 230 [place] [address] PCP - General Family Medicine 09/23/19 Yuri Pierre PharmD 230 [place] [address] Pharmacist Internal Medicine 05/05/24 Basilio Hall MD 596 [place] [address] Cardiology 05/17/24 Ron Preciado MD [address] [place] [address] Pulmonary Disease 05/17/24 documented as of this encounter
--- OUTSIDE RECORDS SUMMARY | 2024-06-08 13:06 | XMS_ITS | Encounter Summary ---
Author Organization [employer] Address [address] [facility] 7t [place] [address] Care Team Providers Care Associate Product Manager Name Role Phone Sariah Vickers Primary Care Provider [phone] Yuri Pierre PharmD Unavailable [phone] Basilio Hall MD Unavailable [phone] Ron Preciado MD Unavailable [phone] Reason for Visit * Reason Comments Med Refill Encounter Details Date Type Department Care Team (Late st Contact Info) Description 01/06/2024 Refill [facility] MED & PEDS [address] [place] [address] Sariah Vickers, KAYLEE 230 [place] [address] Cervicalgia Social History Tobacco Use Types Packs/Day [...] Description 07/02/2024 11:00 AM EDT Clinical Support [facility] MEDICINE [address] [place] [address] Azeb Hall, MARTIN 505 [place] [address] 07/15/2024 1:00 PM EDT Office Visit [facility] MEDICINE [address] [place] [address] Sariah Vickers ANP 230 [place] [address] 08/04/2024 10:00 AM EDT Medication Management [facility] MEDICINE [address] [place] [address] Yuri Pierre, PharmD [address] [place] [address] 08/04/2024 1:00 PM EDT Office Visit [facility] ADULT DENTAL [address] [place] [address] Nuvia Duarte 230 [place] [address] documented as of this encounter Goals Goal [...] documented as of this encounter Care Teams Associate Product Manager Relationship Specialty Start Date End Date Sariah Vickers ANP 230 [place] [address] PCP - General Family Medicine 09/23/19 Yuri Pierre PharmD 230 [place] [address] Pharmacist Internal Medicine 05/05/24 Basilio Hall MD 596 [place] [address] Cardiology 05/17/24 Ron Preciado MD [address] [place] [address] Pulmonary Disease 05/17/24 documented as of this encounter
--- OUTSIDE RECORDS SUMMARY | 2024-06-08 13:06 | XMS_ITS | Encounter Summary ---
Author Organization [employer] Address 75 [facility] 7t [place] [address] Care Team Providers Care Gun Perforator Name Role Phone Sariah Vickers Primary Care Provider [phone] Yuri Pierre PharmD Unavailable [phone] Basilio Hall MD Unavailable [phone] Ron Preciado MD Unavailable [phone] Reason for Visit * Reason Comments Med Refill Encounter Details Date Type Department Care Team (Late st Contact Info) Description 10/03/2023 Refill [facility] 230 [place], [place] [phone] Sariah Vickers ANP 230 [place], [place] [phone] Chronic SI joint pain Social History Tobacco [...] Clinical Support [facility] MEDICINE [address] [place] [address] Azeb Hall, MARTIN 505 [place] [address] 07/15/2024 1:00 PM EDT Office Visit [facility] MED[facility]INE [address] [place] [address] Sariah Vickers, ANP 230 [place] [address] 08/04/2024 10:00 AM EDT Medication Management [facility] [address] [place] [address] Yuri Pierre, PharmD [address] [place] [address] 08/04/2024 1:00 PM EDT Office Visit [facility] ADULT DENTAL [address] [place] [address] Nuvia Duarte 230 [place] [address] documented as of this encounter Goals Goal [...] documented as of this encounter Care Teams Gun Perforator Relationship Specialty Start Date End Date Sariah Vickers ANP 230 [place] [address] PCP - General Family Medicine 09/23/19 Yuri Pierre PharmD [address] [place] [address] Pharmacist Internal Medicine 05/05/24 Basilio Hall MD [address] [place] [address] Cardiology 05/17/24 Ron Preciado MD [address] [place] [address] Pulmonary Disease 05/17/24 documented as of this encounter
--- OUTSIDE RECORDS SUMMARY | 2024-06-08 13:06 | XMS_ITS | Encounter Summary ---
Author Organization [employer] [facility] Address [address] [facility] 7t [place] [address] Care Team Providers Care Drafter Name Role Phone Sariah Vickers Primary Care Provider [phone] Yuri Pierre PharmD Unavailable [phone] Basilio Hall MD Unavailable [phone] Ron Preciado MD Unavailable [phone] Reason for Visit * Reason Comments Med Refill Encounter Details Date Type Department Care Team (Late st Contact Info) Description 03/26/2022 Refill [facility] MEDICINE 230 [place] [address] Sariah Vickers ANP 230 [place] [address] Social History Tobacco Use Types Packs/Day Years [...] Description 07/02/2024 11:00 AM EDT Clinical Support [address] [address] Azeb Hall, RN 505 [place] [address] 07/15/2024 1:00 PM EDT Office Visit [address] [address] Sariah Vickers ANP [address] [place] [address] 08/04/2024 10:00 AM EDT Medication Management [address] [address] Yuri Pierre, Dileep [address] [place] [address] 08/04/2024 1:00 PM EDT Office Visit [facility] ADULT DENTAL [address] [place] [address] Felicia, Nuvia 230 [place] [address] documented as of this encounter Visit Diagnoses Not on filedocumented in this encounter Care Teams Drafter Relationship Specialty Start Date End Date Sariah Vickers ANP [address] [place] [address] PCP - General Family Medicine 09/23/19 Yuri Pierre, PharmD [address] [place] [address] Pharmacist Internal Medicine 05/05/24 Basilio Hall MD 596 [place] [address] Cardiology 05/17/24 Ron Preciado MD [address] [place] [address] Pulmonary Disease 05/17/24 documented as of this encounter
--- OUTSIDE RECORDS SUMMARY | 2024-06-08 13:06 | XMS_ITS | Clinical Summary ---
Author Organization [facility] Address [address] [place] [address] Phone Care Team Providers Care Wastewater Treatment Operator Name Role Phone Sariah Vickers NP Primary Care Provider [phone] Social History Tobacco Use Types Packs/Day Years [...] age to complete this topic Care Teams Wastewater Treatment Operator Relationship Specialty Start Date End Date Sariah Vickers NP [address] [place] [phone] PCP - General 12/03/23
--- OUTSIDE RECORDS SUMMARY | 2024-06-08 13:06 | XMS_ITS | Encounter Summary ---
Author Organization [employer] [facility] Address [address] [facility] 7t [place] [address] Care Team Providers Care Glass Novelty Maker Name Role Phone Sariah Vickers Primary Care Provider [phone] Yuri Pierre PharmD Unavailable [phone] Basilio Hall MD Unavailable [phone] Ron Preciado MD Unavailable [phone] Reason for Visit * Reason Onset Date Comments Med Refill 09/18/2023 Encounter Details Date Type Department Care Team (Late st Contact Info) Description 09/18/2023 Telephone [facility] MEDICINE 230 [place], [place] [phone] Sariah Vickers ANP 230 [place], [place] [phone] Med Refill Social History Tobacco Use Types [...] refill : Tramadol To be sent to: [facility] - [place], [place] - [address] [place] [address] documented in this encounter Plan of Treatment Upcoming Encounters Date Type Department Care Team ([facility] st Contact Info) Description 07/02/2024 11:00 AM EDT Clinical Support [facility] MEDICINE [address] [place] [address] Azeb Hall RN 505 [place] [address] 07/15/2024 1:00 PM EDT Office Visit [address] [address] Sariah Vickers ANP [address] [place] [address] 08/04/2024 10:00 AM EDT Medication Management [address] [address] Yuri Pierre, Dileep 230 [place] [address] 08/04/2024 1:00 PM EDT Office Visit [facility] ADULT DENTAL 230 [place] [address] Nuvia Duarte 230 [place] [address] documented as of this encounter Goals Goal [...] documented as of this encounter Care Teams Glass Novelty Maker Relationship Specialty Start Date End Date Sariah Vickers ANP 230 [place] [address] PCP - General Family Medicine 09/23/19 Yuri Pierre, PharmD 230 [place] [address] Pharmacist Internal Medicine 05/05/24 Basilio Hall MD 596 [place] [address] Cardiology 05/17/24 Ron Preciado MD [address] [place] [address] Pulmonary Disease 05/17/24 documented as of this encounter
--- OUTSIDE RECORDS SUMMARY | 2024-06-08 13:06 | XMS_ITS | Encounter Summary ---
Author Organization [facility] [facility] Address [address] [facility] 7t [place] [address] Care Team Providers Care Associate Editor Name Role Phone Sariah Vickesr Primary Care Provider [phone] Yuri Pierre PharmD Unavailable [phone] Basilio Hall MD Unavailable [phone] Ron Preciado MD Unavailable [phone] Reason for Visit * Reason Comments Med Refill Encounter Details Date Type Department Care Team (Late st Contact Info) Description 11/24/2023 Refill [facility] 230 [place] [address] Sariah Vickers ANP 230 [place] [address] Vertigo Social History Tobacco Use Types Packs/Day [...] Description 07/02/2024 11:00 AM EDT Clinical Support [facility] [address] [place] [address] Azeb Hall, RN 505 [place] [address] 07/15/2024 1:00 PM EDT Office Visit [facility] [address] [place] [address] Sariah Vickers, KAYLEE 230 [place] [address] 08/04/2024 10:00 AM EDT Medication Management [facility] [address] [place] [address] Yuri Pierre, PharmD [address] [place] [address] 08/04/2024 1:00 PM EDT Office Visit [facility] ADULT DENTAL [address] [place] [address] Nuvia Duarte 230 [place] [address] documented as of this encounter Goals Goal [...] as of this encounter Care Teams Associate Editor Relationship Specialty Start Date End Date Sariah Vickers ANP 230 [place] [address] PCP - General Family Medicine 09/23/19 Yuri Pierre, MikeD [address] [place] [address] Pharmacist Internal Medicine 05/05/24 Basilio Hall MD 596 [place] [address] Cardiology 05/17/24 Ron Preciado MD [address] [place] [address] Pulmonary Disease 05/17/24 documented as of this encounter
--- OUTSIDE RECORDS SUMMARY | 2024-06-08 13:06 | XMS_ITS | Encounter Summary ---
Author Organization [employer] Address [address] [facility] 7t [place] [address] Care Team Providers Care Director Equipment Name Role Phone Sariah Vickers Primary Care Provider [phone] Yuri Pierre PharmD Unavailable [phone] Basilio Hall MD Unavailable [phone] Ron Preciado MD Unavailable [phone] Reason for Visit * Reason Comments Med Refill Encounter Details Date Type Department Care Team (Late st Contact Info) Description 01/04/[address] [facility] 505 [place] [address] Sariah Vickers, KAYLEE 230 [place] [address] Cervicalgia Social History Tobacco Use Types Packs/Day [...] [facility] MEDICINE [address] [place] [address] Azeb Hall, MARTIN 505 [place] [address] 07/15/2024 1:00 PM EDT Office Visit [facility] MEDICINE [address] [place] [address] Sariah Vickers ANP 230 [place] [address] 08/04/2024 10:00 AM EDT Medication Management [facility] MEDICINE [address] [place] [address] Yuri Pierre, PharmD [address] [place] [address] 08/04/2024 1:00 PM EDT Office Visit [facility] ADULT DENTAL [address] [place] [address] Nuvia Duarte 230 [place] [address] documented as of this encounter Goals Goal [...] as of this encounter Care Teams Director Equipment Relationship Specialty Start Date End Date Sariah Vickers ANP 230 [place] [address] PCP - General Family Medicine 09/23/19 Yuri Pierre PharmD 230 [place] [address] Pharmacist Internal Medicine 05/05/24 Basilio Hall MD 596 [place] [address] Cardiology 05/17/24 Ron Preciado MD [address] [place] [address] Pulmonary Disease 05/17/24 documented as of this encounter
--- OUTSIDE RECORDS SUMMARY | 2024-06-08 13:06 | XMS_ITS | Encounter Summary ---
Author Organization [employer] [facility] Address [address] [facility] [address] 7t [place] [address] Care Team Providers Care Dry Transfer Man Name Role Phone Sariah Vickers Primary Care Provider [phone] Yuri Pierre PharmD Unavailable [phone] Basilio Hall MD Unavailable [phone] Ron Preciado MD Unavailable [phone] Reason for Visit * Reason Comments Med Refill Patient walked [facility] hasn't finished her Medbox due to missing refill for medication Gabapetin . Encounter Details Date Type Department Care Team (Late st Contact Info) Description 10/03/2023 Refill [facility] 230 [place], [place] [phone] Sariah Vickers ANP 230 [place], [place] [phone] Chronic SI joint pain Social History Tobacco [...] the past 12 months, has t he [employer], gas, oil or water [employer] threatened to shut off services in your [...] AM EDT Clinical Support [facility] [address] [place] [address] Azeb Hall RN 505 [place] [address] 07/15/2024 1:00 PM EDT Office Visit [facility] [address] [place] [address] Sariah Vickers ANP 230 [place] [address] 08/04/2024 10:00 AM EDT Medication Management [facility] [address] [place] [address] Yuri Pierre, MikeD 230 [place] [address] 08/04/2024 1:00 PM EDT Office Visit [facility] 230 [place] [address] Nuvia Duarte 230 [place] [address] documented as of this encounter Goals Goal [...] as of this encounter Care Teams Dry Transfer Man Relationship Specialty Start Date End Date Sariah Vickers ANP 230 [place] [address] PCP - General Family Medicine 09/23/19 Yuri Pierre, PharmD 230 [place] [address] Pharmacist Internal Medicine 05/05/24 Basilio Hall MD 596 [place] [address] Cardiology 05/17/24 Ron Preciado MD [address] [place] [address] Pulmonary Disease 05/17/24 documented as of this encounter
--- OUTSIDE RECORDS SUMMARY | 2024-06-08 13:06 | XMS_ITS | Encounter Summary ---
Author Organization [employer] [facility] Address 75 [facility] 7t [place] [address] Care Team Providers Care Risk Compliance Manager Name Role Phone Sariah Vickers Primary Care Provider [phone] Yuri Pierre PharmD Unavailable [phone] Basilio Hall MD Unavailable [phone] Ron Preciado MD Unavailable [phone] Reason for Visit * Reason Onset Date Comments Med Refill 02/04/2024 Encounter Details Date Type Department Care Team (Late st Contact Info) Description 02/04/2024 Telephone [facility] 230 [place] [address] Sariah Vickers ANP 230 [place], [place] [phone] Med Refill Social History Tobacco Use Types [...] 50 MG tablet To be sent to: [facility] - [place], [place] - [address] [place] [address] documented in this encounter Plan of Treatment Upcoming Encounters Date Type Department Care Team ([facility] st Contact Info) Description 07/02/2024 11:00 AM EDT Clinical Support [facility] [address] [place] [address] Azeb Hall, MARTIN 505 [place] [address] 07/15/2024 1:00 PM EDT Office Visit [facility] [address] [place] [address] Sariah Vickers ANP 230 [place] [address] 08/04/2024 10:00 AM EDT Medication Management [address] [address] Yuri Pierre, MikeD 230 [place] [address] 08/04/2024 1:00 PM EDT Office Visit [facility] ADULT [facility] 230 [place] [address] Nuvia Duarte 230 [place] [address] documented as of this encounter Goals Goal [...] documented as of this encounter Care Teams Risk Compliance Manager Relationship Specialty Start Date End Date Sariah Vickers ANP 230 [place] [address] PCP - General Family Medicine 09/23/19 Yuri Pierre, PharmD 230 [place] [address] Pharmacist Internal Medicine 05/05/24 Basilio Hall MD 596 [place] [address] Cardiology 05/17/24 Ron Preciado MD [address] [place] [address] Pulmonary Disease 05/17/24 documented as of this encounter
--- OUTSIDE RECORDS SUMMARY | 2024-06-08 13:06 | XMS_ITS | Encounter Summary ---
Author Organization [employer] [facility] Address [address] [facility] 7t [place] [address] Care Team Providers Care Registration Specialist Name Role Phone Sariah Vickers Primary Care Provider [phone] Yuri Pierre PharmD Unavailable [phone] Basilio Hall MD Unavailable [phone] Ron Preciado MD Unavailable [phone] Reason for Visit * Reason Comments Med Refill Encounter Details Date Type Department Care Team (Late st Contact Info) Description 10/17/2023 Refill [facility] MED[facility] 230 [place] [address] Sariah Vickers ANP 230 [place] [address] Neck pain Social History Tobacco Use Types [...] 07/02/2024 11:00 AM EDT Clinical Support [facility] MEDICINE [address] [place] [address] Azeb Hall, RN 505 [place] [address] 07/15/2024 1:00 PM EDT Office Visit [facility] MEDICINE [address] [place] [address] Sariah Vickers, KAYLEE 230 [place] [address] 08/04/2024 10:00 AM EDT Medication Management [facility] [address] [place] [address] Yuri Pierre, PharmD [address] [place] [address] 08/04/2024 1:00 PM EDT Office Visit [facility] ADULT DENTAL [address] [place] [address] Nuvia Duarte 230 [place] [address] documented as of this encounter Goals Goal [...] documented as of this encounter Care Teams Registration Specialist Relationship Specialty Start Date End Date Sariah Vickers ANP 230 [place] [address] PCP - General Family Medicine 09/23/19 Yuri Pierre PharmD 230 [place] [address] Pharmacist Internal Medicine 05/05/24 Basilio Hall MD 596 [place] [address] Cardiology 05/17/24 Ron Preciado MD [address] [place] [address] Pulmonary Disease 05/17/24 documented as of this encounter
--- OUTSIDE RECORDS SUMMARY | 2024-06-08 13:06 | XMS_ITS | Encounter Summary ---
Author Organization [employer] Address 75 [facility] 7t [place] [address] Care Team Providers Care Ruby Engineer Name Role Phone Sariah Vickers Primary Care Provider [phone] Yuri Pierre PharmD Unavailable [phone] Basilio Hall MD Unavailable [phone] Ron Preciado MD Unavailable [phone] Reason for Visit * Reason Comments Med Refill Encounter Details Date Type Department Care Team (Late st Contact Info) Description 12/17/2023 Refill [facility] MEDICINE 230 [place] [address] Sariah Vickers ANP 230 [place] [address] Chronic SI joint pain Social History Tobacco [...] 07/02/2024 11:00 AM EDT Clinical Support [facility] MEDICINE [address] [place] [address] Azeb Hall RN 505 [place] [address] 07/15/2024 1:00 PM EDT Office Visit [facility] MEDICINE [address] [place] [address] Sariah Vickers, KAYLEE 230 [place] [address] 08/04/2024 10:00 AM EDT Medication Management [facility] MEDICINE [address] [place] [address] Yuri Pierre, PharmD [address] [place] [address] 08/04/2024 1:00 PM EDT Office Visit [facility] ADULT DENTAL [address] [place] [address] Nuvia Duarte 230 [place] [address] documented as of this encounter Goals Goal [...] documented as of this encounter Care Teams Ruby Engineer Relationship Specialty Start Date End Date Sariah Vickers ANP 230 [place] [address] PCP - General Family Medicine 09/23/19 Yuri Pierre PharmD [address] [place] [address] Pharmacist Internal Medicine 05/05/24 Basilio Hall MD [address] [place] [address] Cardiology 05/17/24 Ron Preciado MD [address] [place] [address] Pulmonary Disease 05/17/24 documented as of this encounter
--- OUTSIDE RECORDS SUMMARY | 2024-06-08 13:06 | XMS_ITS | Encounter Summary ---
Author Organization [employer] [facility] Address [address] [facility] 7t [place] [address] Care Team Providers Care Whip Sawyer Name Role Phone Sariah Vickers Primary Care Provider [phone] Yuri Pierre PharmD Unavailable [phone] Basilio Hall MD Unavailable [phone] Ron Preciado MD Unavailable [phone] Reason for Visit * Reason Comments Med Refill Encounter Details Date Type Department Care Team (Late st Contact Info) Description 12/19/2022 Refill [facility] MEDICINE 230 [place] [address] Sariah Vickers ANP 230 [place] [address] Vertigo Social History Tobacco Use Types Packs/Day [...] EDT Clinical Support [facility] MEDICINE [address] [place] [address] Azeb Hall, MARTIN 505 [place] [address] 07/15/2024 1:00 PM EDT Office Visit [facility] MED[facility] [address] [place] [address] Sariah Vickers, ANP 230 [place] [address] 08/04/2024 10:00 AM EDT Medication Management [facility] [address] [place] [address] Yuri Pierre, PharmD [address] [place] [address] 08/04/2024 1:00 PM EDT Office Visit [facility] ADULT DENTAL [address] [place] [address] Nuvia Duarte 230 [place] [address] documented as of this encounter Goals Goal [...] giddiness documented in this encounter Care Teams Whip Sawyer Relationship Specialty Start Date End Date Sariah Vickers ANP 230 [place] [address] PCP - General Family Medicine 09/23/19 Yuri Pierre, MikeD [address] [place] [address] Pharmacist Internal Medicine 05/05/24 Basilio Hall MD [address] [place] [address] Cardiology 05/17/24 Ron Preciado MD [address] [place] [address] Pulmonary Disease 05/17/24 documented as of this encounter
--- OUTSIDE RECORDS SUMMARY | 2024-06-08 13:06 | XMS_ITS | Encounter Summary ---
Author Organization [employer] [facility] Address [address] [facility] 7t [place] [address] Care Team Providers Care Customs Brokerage Agent Name Role Phone Sariah Vickers Primary Care Provider [phone] Yuri Pierre PharmD Unavailable [phone] Basilio Hall MD Unavailable [phone] Ron Preciado MD Unavailable [phone] Reason for Visit * Reason Comments Med Refill Encounter Details Date Type Department Care Team (Late st Contact Info) Description 10/24/2023 Refill [facility] 230 [place] [address] Sariah Vickers ANP 230 [place] [address] Neck pain Social History Tobacco Use Types [...] AM EDT Clinical Support [facility] [address] [place] [address] Azeb Hall, RN 505 [place] [address] 07/15/2024 1:00 PM EDT Office Visit [facility] [address] [place] [address] Sariah Vickers, KAYLEE 230 [place] [address] 08/04/2024 10:00 AM EDT Medication Management [facility] [address] [place] [address] Yuri Pierre, PharmD [address] [place] [address] 08/04/2024 1:00 PM EDT Office Visit [facility] ADULT DENTAL [address] [place] [address] Nuvia Duarte 230 [place] [address] documented as of this encounter Goals Goal [...] of this encounter Care Teams Customs Brokerage Agent Relationship Specialty Start Date End Date Sariah Vickers ANP 230 [place] [address] PCP - General Family Medicine 09/23/19 Yuri Pierre PharmD 230 [place] [address] Pharmacist Internal Medicine 05/05/24 Basilio Hall MD 596 [place] [address] Cardiology 05/17/24 Ron Preciado MD [address] [place] [address] Pulmonary Disease 05/17/24 documented as of this encounter
--- OUTSIDE RECORDS SUMMARY | 2024-06-08 13:06 | XMS_ITS | Encounter Summary ---
Author Organization [employer] [facility] Address 75 [facility] 7t [place] [address] Care Team Providers Care Lamination Technician Name Role Phone Sariah Vickers Primary Care Provider [phone] Yuri Pierre PharmD Unavailable [phone] Basilio Hall MD Unavailable [phone] Ron Preciado MD Unavailable [phone] Reason for Visit * Reason Comments Med Refill Encounter Details Date Type Department Care Team (Late st Contact Info) Description 11/26/2023 Refill [facility] 230 [place] [address] Sariah Vickers ANP 230 [place] [address] Vertigo Social History Tobacco Use Types Packs/Day [...] Description 07/02/2024 11:00 AM EDT Clinical Support [facility] [address] [place] [address] Azeb Hall, RN 505 [place] [address] 07/15/2024 1:00 PM EDT Office Visit [facility] [address] [place] [address] Sariah Vickers, KAYLEE 230 [place] [address] 08/04/2024 10:00 AM EDT Medication Management [facility] [address] [place] [address] Yuri Pierre, PharmD [address] [place] [address] 08/04/2024 1:00 PM EDT Office Visit [facility] ADULT DENTAL [address] [place] [address] Nuvia Duarte 230 [place] [address] documented as of this encounter Goals Goal [...] documented as of this encounter Care Teams Lamination Technician Relationship Specialty Start Date End Date Sariah Vickers ANP 230 [place] [address] PCP - General Family Medicine 09/23/19 Yuri Pierre, MikeD [address] [place] [address] Pharmacist Internal Medicine 05/05/24 Basilio Hall MD 596 [place] [address] Cardiology 05/17/24 Ron Preciado MD [address] [place] [address] Pulmonary Disease 05/17/24 documented as of this encounter
--- OUTSIDE RECORDS SUMMARY | 2024-06-08 13:06 | XMS_ITS | Encounter Summary ---
Author Organization [employer] [facility] Address [address] [facility] 7t [place] [address] Care Team Providers Care Medication Aide Name Role Phone Sariah Vickers Primary Care Provider [phone] Yuri Pierre PharmD Unavailable [phone] Basilio Hall MD Unavailable [phone] Ron Preciado MD Unavailable [phone] Reason for Visit * Reason Onset Date Comments Nurse Triage 01/14/2023 Encounter Details Date Type Department Care Team (Late st Contact Info) Description 01/14/2023 Telephone [facility] MEDICINE 230 [place] [address] Sariah Vickers ANP 230 [place], [place] [phone] Nurse Triage Social History Tobacco Use Types [...] 01/14/2023 9:26 AM EST 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 Pt. States that she has been having a fire feeling in her legs. Its like A burning that goes down her legs . Pt. Unsure if it because of her Diabetes. Pt. Went to [facility] for pain on her left side [...] at 10am. Will send note to clinical transition of care specialist to have note put in [...] Severe pain now, pt was seen at [facility] on 01/13 for pain in leg. Pt is still symptomatic The caller accepted this outcome Please contact pt at [phone] (fruit tester needed) documented in this encounter Plan of Treatment Upcoming Encounters Date Type Department Care Team (Late st Contact Info) Description 07/02/2024 11:00 AM EDT Clinical Support [address] [address] Azeb Hall RN [address] [place] [address] 07/15/2024 1:00 PM EDT Office Visit [facility] MEDICINE [address] [place] [address] Sariah Vickers, ANP [address] [place] [address] 08/04/2024 10:00 AM EDT Medication Management [address] [address] Yuri Pierre, MikeD [address] [place] [address] 08/04/2024 1:00 PM EDT Office Visit [facility] ADULT DENTAL [address] [place] [address] Nuvia Duarte 230 [place] [address] documented as of this encounter Goals Goal [...] on filedocumented in this encounter Care Teams Medication Aide Relationship Specialty Start Date End Date Sariah Vickers ANP [address] [place] [address] PCP - General Family Medicine 09/23/19 Yuri Pierre, MikeD 230 [place] [address] Pharmacist Internal Medicine 05/05/24 Basilio Hall MD 596 [place], [place] 0754940 Cardiology 05/17/24 Ron Preciado MD [address] [place] [address] Pulmonary Disease 05/17/24 documented as of this encounter
--- OUTSIDE RECORDS SUMMARY | 2024-06-08 13:06 | XMS_ITS | Encounter Summary ---
Author Organization [facility] Address [address] [facility] [address] [place] [address] Care Team Providers Care Manager Food Name Role Phone Sariah Vickers Primary Care Provider [phone] Yuri Pierre PharmD Unavailable [phone] Basilio Hall MD Unavailable [phone] Ron Preciado MD Unavailable [phone] Reason for Visit * Reason Onset Date Comments Nurse Triage 12/24/2022 Encounter Details Date Type Department Care Team (Late st Contact Info) Description 12/24/[address] 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 Pt. States that she wants to [...] regimen and possible referral to a new [employer] T[employer]er due to pt. Not having jeremie in [...] accepted this outcome Please contact pt at [phone] documented in this encounter Plan of Treatment Upcoming Encounters Date Type Department Care Team (Late st Contact Info) Description 07/02/2024 11:00 AM EDT Clinical Support [facility] [address] [place] [phone] Azeb Hall, RN [address] [place] [address] 07/15/2024 1:00 PM EDT Office Visit [address] [phone] Sariah Vickers ANP [address] [place] [phone] 08/04/2024 10:00 AM EDT Medication Management [address] [phone] Yuri Pierre PharmD [address] [place] [id number] 08/04/2024 1:00 PM EDT Office Visit [facility] ADULT DENTAL [address] [place] [phone] Nuvia Duarte [address] [place] [phone] documented as of this encounter Goals Goal [...] filedocumented in this encounter Care Teams Manager Food Relationship Specialty Start Date End Date Sariah Vickers ANP [address] [place] [phone] PCP - General Family Medicine 09/23/19 Yuri Pierre PharmD [address] [place] [phone] Pharmacist Internal Medicine 05/05/24 Basilio Hall MD [address] [place] [address] Cardiology 05/17/24 Ron Preciado MD [address] [place] [address] Pulmonary Disease 05/17/24 documented as of this encounter
--- OUTSIDE RECORDS SUMMARY | 2024-06-08 13:06 | XMS_ITS | Clinical Summary ---
Author Organization [employer] Address [address] [facility] [address] [place] [address] Care Team Providers Care Director Supply Chain Name Role Phone Anthony Ruiz KAYLEE Primary Care Provider [phone] Yuri Pierre PharmD Unavailable [phone] Basilio Hall MD Unavailable [phone] Ron Preciado MD Unavailable [phone] Allergies Active Allergy Reactions Criticality Noted [...] 1 strip at bed time. 022 Active omeprazole (PriLOSEC) [address] capsule [...] the morning. Active Lactobacillus-In ulin ([facility]) capsule TAKE 1 CAPSULE BY MOUTH [...] neuropathy, with long-term current use of insulin ([facility]) USE 1 SPRAY (3MG) IN ONE NOSTRIL FOR A PATIENT WITH SEVERE HYPOGLYCEMIA WHO IS NOT RESPONSIVE AND UNABLE SELF-TREAT WITH GLUCOSE. AFTERWARDS TURN ON SIDE. MAY REPEAT IN 15MINUTES IF PATIENT DOES NOT RESPOND. 2 each 1 024 Active insulin lispro (HumaLOG KWIKPEN) 100 UNIT/ML injectionIndicat ions:Type 2 diabetes mellitus with hyperlipidemia (CMS/HCC) ([facility]) Inject 2 Units under the skin [...] tabletIndication s:Type 2 diabetes mellitus with hyperlipidemia ([facility]) ([facility]) CHEW 4 TABLETS BY MOUTH NEEDED LOW FOR BLOOD SUGAR 50 tablet 12 024 Active Ozempic, 0.25 or 0.5 MG/DOSE, 2 MG/3ML solution pen-injectorIndi cations:Type 2 diabetes mellitus with hyperlipidemia ([facility]) ([facility]) INJECT 0.5 MG SUBCUTANEOUSLY EVERY 7 DAYS IN THE ABDOMEN, THIGHS, OR UPPER ARM, ROTATE INJECTION SITES. 3 mL 1 024 Active Alcohol Swabs (Alcohol Prep) [...] 60 each 5 025 Active Continuous Glucose Manufacturing Test Engineer (FreeStyle Jalil 2 [place]) deviceIndication s:Type 2 diabetes mellitus with hyperlipidemia ([facility]) ([facility]) Use to check blood sugar at [...] HOURS DIRECTED 30 patch 1 025 Active predniSONE (Deltasone) 20 MG tablet Take 2 tablets by mouth Once per day. 025 Active metoclopramide (Reglan) 5 MG tablet Take 1 tablet by mouth every 6 (six) hours during the day. 025 Active potassium chloride CR (Klor-Con M20) 20 MEQ ER tablet TAKE 1 TABLET BY MOUTH TWICE DAILY IN THE MORNING AND IN THE EVENING 180 tablet Active busPIRone (Buspar) 10 MG tablet Take 10 mg by mouth 3 times daily. Active BD Pen Needle Lorna U/F 32G X 4 MM miscIndications: Type 2 diabetes mellitus with hyperlipidemia (CMS/HCC) ([facility]) USE DIRECTED THREE TIMES DAILY 100 each 025 Active Continuous Glucose Sensor (FreeStyle Jalil 2 Plus Sensor) miscIndications: Type 2 diabetes mellitus with hyperlipidemia (CMS/HCC) ([facility]) Apply 1 each topically every 15 days. Use to check blood sugar every 8 hours as directed. 2 each 025 Active traMADol (Ultram) 50 MG tabletIndication s:Cervicalgia TAKE 1 TABLET BY MOUTH EVERY TWELVE HOURS NEEDED FOR SEVERE PAIN 60 tablet 025 Active enalapril (Vasotec) 20 MG tabletIndication s:Essential hypertension TAKE 1 TABLET BY MOUTH EVERY MORNING 30 tablet 1 025 Active amLODIPine (Norvasc) 10 MG tablet TAKE 1 TABLET BY MOUTH EVERY EVENING 90 tablet 025 Active montelukast (Singulair) 10 MG tablet TAKE 1 TABLET BY MOUTH EVERY EVENING 90 tablet 025 Active levothyroxine (Synthroid, Levoxyl) 75 MCG tabletIndication s:Hypothyroidism , unspecified TAKE 1 TABLET BY MOUTH EVERY MORNING 90 tablet 025 Active ipratropium-albu terol (Duo-Neb) 0.5-2.5 mg/3 mL nebulizer solutionIndicati ons:Severe persistent asthma without complication INHALE 1 AMPULE USING A NEBULIZER EVERY 6 HOURS NEEDED 90 mL 5 025 Active acetaminophen (Tylenol) 325 MG tabletIndication s:Neck pain TAKE 1 TO 2 TABLETS BY MOUTH EVERY 6 HOURS NEEDED 60 tablet 025 Active levothyroxine (Synthroid, Levoxyl) 75 MCG tablet Take 1 tablet by mouth at bed time. 2024 Discontinued TechLite Plus Pen [place] 32G X 4 MM miscIndications: Type 2 diabetes mellitus with hyperlipidemia (CMS/HCC) ([facility]) USE DIRECTED THREE TIMES DAILY 100 each 5 024 2024 Discontinued montelukast (Singulair) 10 MG tablet TAKE 1 TABLET BY MOUTH EVERY EVENING 90 tablet 1 024 2024 Discontinued amLODIPine (Norvasc) 10 MG tablet TAKE 1 TABLET BY MOUTH EVERY EVENING 90 tablet 1 024 2024 Discontinued enalapril (Vasotec) 20 MG tabletIndication s:Essential hypertension TAKE 1 TABLET BY MOUTH EVERY MORNING 30 tablet 1 025 2024 Discontinued ipratropium-albu terol (Duo-Neb) 0.5-2.5 mg/3 mL nebulizer solutionIndicati ons:Severe persistent asthma without complication INHALE 1 AMPULE USING A NEBULIZER EVERY 6 HOURS NEEDED 90 mL 5 025 2024 Discontinued acetaminophen (Tylenol) 325 MG tabletIndication s:Neck pain TAKE 1 TO 2 TABLETS BY MOUTH EVERY 6 HOURS NEEDED 60 tablet 025 2024 Discontinued traMADol (Ultram) 50 MG tabletIndication s:Cervicalgia TAKE 1 TABLET BY MOUTH EVERY TWELVE HOURS NEEDED FOR SEVERE PAIN 60 tablet 025 2024 Discontinued atorvastatin (Lipitor) 80 MG tabletIndication s:High cholesterol TAKE 1 TABLET BY MOUTH AT BEDTIME 90 tablet 1 025 2024 Discontinued Continuous Glucose Sensor (FreeStyle Jalil 2 Plus Sensor) miscIndications: Type 2 diabetes mellitus with hyperlipidemia (CMS/HCC) ([facility]) Apply 1 each topically every 15 days. [...] her family. She will continue services with [facility] for OP therapy and psychiatry services. clinician will be available if needed during next medical appointment. PLAN: (check all that apply) Continue with current services (defined as services in the past 12 months) . Pt is engaged with OP therapy and psychiatry services with [facility] @ [facility] Excessive attrition of teeth, generalized 2023 Right [...] her family. She will continue services with [facility] for OP therapy and psychiatry services. clinician will be available if needed during next medical appointment. PLAN: (check all that apply) Continue with current services (defined as services in the past 12 months) . Pt is engaged with OP therapy and psychiatry services with [facility] @ [facility] Fibromyalgia 07/31/2022 Asthma-COPD overlap syndrome 07/31/2022 Right [...] for possible plantar fasciitis -referred today to newspaper photographer x ongoing discomfort -may need orthopedic shoes [...] psychiatry with N at [facility]. Sees psych provider every two months and therapist bi-weekly. Pt will reach out to clinician as needed. Assessment & Plan (04/10/2023 11:08 AM EST): PLAN: (check all that apply) Behavioral Health Integration Plan Patient Self Plan Patient to reach out to [facility] team as needed Assessment & Plan [...] Patient may request to speak with a [facility] during next PCP visit, if needed Chronic [...] Encounters Date Type Department Care Team Description 06/04/2024 Telephone [facility] [address] [place] [address] Anthony Ruiz ANP Call Back Request 06/03/2024 Refill [facility] [address] [place] [address] Chava Presley MD Neck pain 06/03/2024 Refill [facility] [address] [place] [address] Debra Faye MD Severe persistent asthma without complication 06/01/2024 Telephone [facility] [address] [place] [address] Anthony Ruiz ANP Prior Authorization 06/01/2024 Refill [facility] [address] [place], [place] [phone] Anthony Ruiz ANP Hypothyroidism, unspecified 05/31/2024 Telephone [facility] [address] [place] [address] Yohana Quinn service station cashier Question 05/31/2024 Orders Only [facility] [address] [place] [phone] Anthony Ruiz ANP OKEEFE (nonalcoholic steatohepatitis) (Primary Dx) 05/30/2024 Orders Only GENERIC EXTERNAL DATA DEPARTMENT Provider, Generic External Data 05/27/2024 Orders Only GENERIC EXTERNAL DATA DEPARTMENT Provider, Generic External Data 05/27/2024 Refill [facility] [address] [place] [phone] Anthony Ruiz ANP Essential hypertension 05/26/2024 Refill [facility] [address] [place] [address] Anthony Ruiz ANP Cervicalgia 05/23/2024 Refill [facility] [address] [place] [address] Anthony Ruiz ANP Cervicalgia 05/21/2024 Telephone [facility] [address] [place] [address] Anthony Ruiz ANP 05/17/2024 Refill [facility] [address] [place] [address] [phone] Anthony Ruiz ANP Type 2 diabetes mellitus with hyperlipidemia ([facility]) 05/12/2024 Telephone [facility] [address] [place] [phone] Yohana Quinn RN CGM Documentation 05/07/2024 Telephone [facility] [address] [place] [address] Anthony Ruiz ANP Prior Authorization 05/04/[address] [address] Anthony Ruiz ANP Prior Authorization 05/02/2024 Refill [facility] [address] [place] [phone] Anthony Ruiz ANP High cholesterol 04/29/2024 Telephone [facility] [address] [place] [address] Anthony Ruiz ANP Referral 04/29/2024 Travel 04/26/2024 Refill [facility] [address] [place] [address] Anthony Ruiz ANP Cervicalgia 04/23/2024 11:30 AM EST Clinical Support [facility] [address] [place] [phone] zAeb Hall, MARTIN Long-term current use of opiate analgesic 04/23/2024 Telephone [facility] [address] [place] [address] Azeb Hall RN 04/23/2024 Travel 04/21/2024 Telephone [facility] [address] [place] [address] Chaav Presley MD 04/20/2024 11:00 AM EST Office Visit [facility] [address] [place] [phone] Chava Presley MD Posterior chest pain (Primary Dx); Asthma-COPD overlap syndrome (CMS/HCC); Neck pain 04/20/2024 Orders Only [facility] [address] [place] [address] Chava Presley MD 04/15/2024 1:30 PM EST Office Visit [facility] [address] [place] [phone] Anthony Ruiz ANP Umbilical hernia without obstruction and without gangrene (Primary Dx); Type 2 diabetes mellitus with hyperlipidemia (CMS/HCC) (CMS/HCC); Acute cough; Severe persistent allergic asthma; Allergy to fish 04/15/2024 Travel 04/12/2024 Orders Only [facility] External Provider, [facility] 04/12/2024 Telephone [facility] [address] [place] [address] Anthony Ruiz ANP Chart Prep 04/06/2024 Telephone [facility] [address] [place] [address] Anthony Ruiz ANP Nurse Triage 04/06/2024 Refill [facility] [address] [place] [address] Anthony Ruiz ANP Severe persistent asthma without complication 04/02/2024 Refill [facility] [address] [place] [address] Anthony Ruiz ANP Neck pain 04/02/2024 Refill [facility] [address] [place] [address] Anthony Ruiz ANP Essential hypertension; Chronic SI joint pain; Chronic bilateral low back pain, unspecified whether sciatica present 04/01/2024 Refill [facility] [address] [place] [address] Anthony Ruiz ANP Type 2 diabetes mellitus with hyperlipidemia (CMS/HCC) (CMS/HCC) (Primary Dx) 03/29/2024 Telephone [facility] [address] [place] [phone] Candy Bains, DRY CANS OPERATOR Follow-up 03/29/2024 Orders Only [facility] [address] [place] [phone] Anthony Ruiz ANP 03/28/2024 Refill [facility] [address] [place] [address] Anthony Ruiz ANP Cervicalgia 03/20/2024 Orders Only GENERIC EXTERNAL DATA DEPARTMENT Provider, Generic External Data 03/18/2024 Orders Only [facility] [address] [place] [address] Waldo Rojas MD Essential hypertension (Primary Dx) 03/17/2024 1:30 PM EST Office Visit [address] [address] Anthony Ruiz ANP Type 2 diabetes mellitus with hyperlipidemia (CMS/HCC) (Primary Dx); Abscess 03/17/2024 Telephone [facility] [address] [place] [address] Anthony Ruiz ANP 03/17/2024 Travel 03/15/[address] [address] Candy Bains, RN Paperwork/Forms 03/13/2024 Refill [facility] [address] [place] [phone] Anthony Ruiz ANP Severe persistent asthma without complication 03/12/[address] [phone] Anthony Ruiz ANP status check abscess from Last 3 Months Immunizations Name Administration [...] Clinical Support [facility] [address] [place] [address] Azeb Hall, MARTIN [address] [place] [address] 07/15/2024 1:00 PM EDT Office Visit [address] [address] Anthony Ruiz ANP [address] [place] [address] 08/04/2024 10:00 AM EDT Medication Management [facility] [address] [place] [address] Yuri Pierre, PharmD [address] [place] [address] 08/04/2024 1:00 PM EDT Office Visit [facility] [address] [place] [address] Brendan Duartearis [address] [place] [address] Health Maintenance Due Date Last Done Comments [...] exists Dental Oral Exam 03/15/2024 09/12/2023, 08/12/2022 Dental Prophylaxis 04/08/2024 10/06/2023, 0 09/18/2022, 01/18/2022 [...] AUTO DIFFERENTIAL Routine 05/30/2024 1:17 PM EDT BLOOD CULTURE (FIRST) Routine 05/30/2024 1:17 PM EDT BLOOD CULTURE (SECOND) Routine 05/30/2024 1:17 PM EDT GLUCOSE, WHOLE [...] of5 resultswithin the time period is included. Glucose, Whole Blood 105 60 - 115 mg/dL [facility] Comment:METER #: [id number] 05/30/2024 4:16 PM EDT 05/30/2024 4:19 PM EDT Generic External Data Provider LAB BLOOD ORDERAB LES Final Result Performing Organization Address [facility] de Phone Number [facility] [address] [place] [phone] * Blood Culture (First) (05/30/2024 1:17 PM EDT) Blood Venous blood specimen / Unknown 05/30/2024 1:17 PM EDT 05/30/2024 1:23 PM EDT Comment:Blood Narrative [facility] - 06/04/2024 3:23 PM EDT Blood Culture (First) No growth after 5 days. Specimen Source: Blood Generic External Data Provider LAB MICROBIOLOGY - GENERAL ORDERABLES Final Result Performing Organization Address [facility] Co de Phone Number [facility] [address] [place] [address] [phone] * Blood Culture (Second) (05/30/2024 1:17 PM EDT) Blood Venous blood specimen / Unknown 05/30/2024 1:17 PM EDT 05/30/2024 1:23 PM EDT Comment:Blood Narrative [facility] - 06/04/2024 3:23 PM EDT Blood Culture (Second) No growth after 5 days. Specimen Source: Blood us Generic External Data Provider LAB MICROBIOLOGY - GENERAL ORDERABLES Final Result [facility] [address] [place] [phone] * (ABNORMAL) CBC auto differential (05/30/2024 1:17 PM EDT) Only the most recent of2 resultswithin the time period is included. White Blood Count 6.0 4.8 - 10.8 X10*3/uL [facility] Red Blood Count 4.49 4.20 - 5.50 X10*6/uL [facility] Hemoglobin 14.6 12.0 - 16.0 g/dl [facility] Hematocrit 42.3 37.0 - 47.0 % [facility] Mean Corpuscular Volume 94.2 80.0 - 98.0 fL [facility] Mean Corpuscular Hemoglobin 32.5 27.0 - 33.0 pg [facility] Mean Corpuscular HGB Conc 34.5 31.0 - 35.0 g/dl [facility] Red Cell Distribution Width 14.3 11.0 - 16.0 % [facility] Platelet Count 269 160 - 400 X10*3/uL [facility] Mean Platelet Volume 9.7 9.4 - 12.3 fL [facility] Neutrophils Percent Auto 46.6 45 - 73 % [facility] Imm Gran Pct Auto 0.2 0.0 - 0.4 % [facility] Lymphocytes Percent Auto 41.4(H) 20 - 40 % [facility] Monocytes Percent Auto 8.3 2 - 11 % [facility] Eosinophils Percent Auto 2.8 0 - 4 % [facility] Basophils Percent Auto 0.7 0 - 2 % [facility] NRBC Pct Auto 0.0 0.0 - 0.2 /100WBC [facility] Neutrophils Absolute Auto 2.8 2.0 - 8.3 x10*3/uL [facility] Imm Gran Abs Auto 0.01 0.00 - 0.03 X10*3/uL [facility] Lymphocytes Absolute Auto 2.5 1.2 - 4.9 X10*3/uL [facility] Monocytes Absolute Auto 0.5 0.1 - 1.2 X10*3/uL [facility] Eosinophils Absolute Auto 0.2 0.0 - 0.4 X10*3/uL [facility] Basophils Absolute Auto 0.0 0.0 - 0.2 X10*3/uL [facility] NRBC Abs Auto 0.000 0.0 - 0.012 X10*3/uL [facility] 05/30/2024 1:17 PM EDT 05/30/2024 1:23 PM EDT us Generic External Data Provider LAB BLOOD ORDERAB LES Final Result [facility] [address] [place] [address] [phone] * (ABNORMAL) Sed Rate by Modified Earlnieren (05/30/2024 1:17 PM EDT) Only the most recent of2 resultswithin the time period is included. Erythrocyte Sedimentation Rate 28(H) 0 - 20 MM/HR [facility] Comment:Patients with polycy themia and many hemoglobin abnormalitiesmay have depressed sed rates whereas patients with anemiamay have elevated sed rates. 05/30/2024 1:17 PM EDT 05/30/2024 1:23 PM EDT us Generic External Data Provider LAB BLOOD ORDERAB LES Final Result Performing Organization Address [facility] de Phone Number [facility] [address] [place] [phone] * (ABNORMAL) C-reactive Protein (05/30/2024 1:17 PM EDT) Only the most recent of2 resultswithin the time period is included. C Reactive Protein 2.28(H) < or = 0.50 mg/dL [facility] 05/30/2024 1:17 PM EDT 05/30/2024 1:23 PM EDT Generic External Data Provider LAB BLOOD ORDERAB LES Final Result Performing Organization Address [facility] de Phone Number [facility] [address] [place] [phone] * Lactic Acid (05/30/2024 1:17 PM EDT) Only the most recent of2 resultswithin the time period is included. Pathologist [facility] Lactic Acid 0.8 0.5 - 2.0 mmol/L [facility] 05/30/2024 1:17 PM EDT 05/30/2024 1:31 PM EDT Generic External Data Provider LAB BLOOD ORDERAB LES Final Result Performing Organization Address [facility] Co de Phone Number [facility] [address] [place] [phone] * (ABNORMAL) Comprehensive Metabolic Panel (05/30/2024 1:17 PM EDT) Sodium 142 135 - 145 mmol/L [facility] Potassium 3.4 3.3 - 5.1 mmol/L [facility] Chloride 112(H) 96 - 108 mmol/L [facility] Carbon Dioxide 23 22 - 29 mmol/L [facility] Anion Gap 10(L) 12 - 20 [facility] Urea Nitrogen (BUN) 11 9 - 16 mg/dL [facility] Creatinine, Serum 0.75 0.5 - 1.4 mg/dL [facility] Creatinine Clr Calc Pharmacy 84.4 [facility] Comment:Provided height and weight: 165.1 cm,88.6 kg.eGFR (calculated from the MDRD study equation) and eCrCl(calculated from the Cockcroft-Gault equation) are based ondifferent parameters and may not yield comparable results.If eCrCl result is absurd, please check patient'sheight/weight. Estimated Glomerular Filt Rate >60 [facility] Comment:Chronic Kidney Disea se: Estimated GFR < 60 mL/min/1.29v6Ebsdqg Kidney Disease: Estimated GFR < 15 mL/min/1.73m2 Glucose 133(H) 60 - 115 mg/dL [facility] Calcium 8.8 8.4 - 10.2 mg/dL [facility] Bilirubin, Total 0.5 0.0 - 1.0 mg/dL [facility] Aspartate Amino Transferase 197(H) 5 - 31 U/L [facility] Alanine Aminotransferase 243(H) 0 - 31 U/L [facility] Total Protein 7.6 6.5 - 8.0 g/dL [facility] Albumin Level 3.7 3.5 - 5.0 g/dL [facility] Alkaline Phosphatase 164(H) 39 - 117 U/L [facility] 05/30/2024 1:17 PM EDT 05/30/2024 1:23 PM EDT us Generic External Data Provider LAB BLOOD ORDERAB LES Final Result [facility] [address] [place], [place] [phone] * US RENAL BI (05/27/2024 10:05 AM EDT) Anatomical Region Laterality Modality Abdomen Ultrasound 05/27/2024 10:0 5 AM EDT Narrative 05/27/2024 10:06 AM EDT ? [facility] ?[address] ?[place] [address] ? Ultrasound Report ? Signed ? Patient: Avinash Ho,Nuvia E ?MR ?? #: [id number] ? : 1960 ?Acct:[id number] ? Age/Sex: 63 / F ?ADM Date: 05/26/24 ? Loc: HO.US ? Attending Dr: Moses Mccoy MD ? Ordering Physician: Moses Mccoy MD ?? Date of Service: 05/26/24 ?? Procedure(s): US renal BI ?? Accession Number(s): [id number] ? cc: Moses Mccoy MD; ANTHONY RUIZ NP ? CLINICAL HISTORY: N20.0 - Calculus of kidney ? US renal with Color Doppler ? Comparison: CT/SR - CT ABDOMEN PELVIS W IV CON - 03/20/24 18:22 EST ?? US/SR - US ABDOMEN COMPLETE - 11/05/23 08:43 EDT ?? CT/MN/SR - CT ABDOMEN WO/W IV CON - 09/05/23 16:27 EDT ?? US/MN/SR - US RENAL BI - 06/04/23 12:55 [...] signed by Diogo Plasencia MD in OV> ?05/27/241005 ? DD/ 04 ? TD/TT: 05/27/241004 ? Shut Off Worker: ? Procedure Note Donotuseinterpreter, Image - 05/27/[address] [address] Ultrasound Report Signed Patient: Nuvia Fay EMR #: [id number] : 1960cct:[id number] Age/Sex: 63 / FADM Date: 05/26/24 Loc: HO.US Attending Dr: Moses Mccoy MD Ordering Physician: Moses Mccoy MD Date of Service: 05/26/24 Procedure(s): US renal BI Accession Number(s): [id number] cc: Moses Mccoy MD; ANTHONY RUIZ NP CLINICAL HISTORY: N20.0 - Calculus of kidney US renal with Color Doppler Comparison: CT/SR - CT ABDOMEN PELVIS W IV CON - 03/20/24 18:22 EST US/SR - US ABDOMEN COMPLETE - 11/05/23 08:[address]/MN/SR - CT ABDOMEN WO/W IV CON - 09/05/23 16:27 EDT US/MN/SR - US RENAL BI - 06/04/23 12:55 [...] 05/27/24 1006 DD/ 1005 TD/TT: 05/27/24 1005 Shut Off Worker: [facility] External Provider IMG US PROCEDURES Final Result * Drug Monitoring, Panel 1, Screen, Urine (05/27/2024 8:07 AM EDT) Opiate Screen Urine Not Detected Not Detect [facility] Comment:Opiate cut-off is 30 0 ng/mL.Positive results are unconfirmed and should not be used fornon-medical purposes. Barbiturates, Urine Not Detected Not Detect [facility] Comment:Barbiturate cut-off is 200 ng/mL.Positive results are unconfirmed and should not be used fornon-medical purposes. Phencyclidine Screen Urine Not Detected Not Detect [facility] [facility] Comment:Phencyclidine cut-of f is 25 ng/mL.Positive results are unconfirmed and should not be used fornon-medical purposes. Amphetamine Screen Urine Not Detected Not Detect [facility] Comment:Amphetamine cut-off is 1000 ng/mL.Positive results are unconfirmed and should not be used fornon-medical purposes. Benzodiazepines Screen Urine Not Detected Not Detect [facility] Comment:Benzodiazepine cut-o ff is 200 ng/mL.Positive results are unconfirmed and should not be used fornon-medical purposes. Cocaine Screen Urine Not Detected Not Detect [facility] Comment:Cocaine cut-off is 3 00 ng/mL.Positive results are unconfirmed and should not be used fornon-medical purposes. Cannabinoid Screen Urine Not Detected Not Detect [facility] Comment:Cannabinoid cut-off is 50 ng/mL.Positive results are unconfirmed and should not be used fornon-medical purposes. Methadone Screen, Urine Not Detected Not Detect ng/mL [facility] Comment:Methadone cut-off is 300 ng/mL.Positive results are unconfirmed and should not be used fornon-medical purposes. FENTANYL URINE Not Detected Not Detect [facility] Comment:Fentanyl cut-off is 1 ng/mL.Positive results are unconfirmed and should not be used fornon-medical purposes. Oxycodone Urine Screen Not Detected Not Detect ng/mL [facility] Comment:Oxycodone cut-off is 100 ng/mL.Positive results are unconfirmed and should not be used fornon-medical purposes. Buprenorphine Screen Not Detected Not Detect ng/mL [facility] Comment:Buprenorphine cut-of f is 5 ng/mL.Positive results are unconfirmed and should not be used fornon-medical purposes. 05/27/2024 8:07 AM EDT 05/27/2024 8:13 AM EDT Generic External Data Provider LAB URINE ORDERAB LES Final Result Performing Organization Address City/State/[facility] Co de Phone Number [facility] [address] [place] [phone] * POCT FRANKLIN-14 Urine Drug Screen (04/23/2024 10:56 AM EST) Urine Urine specimen obtained by clean catch procedure / Unknown 04/23/2024 10:56 AM EST Narrative Azeb Hall RN - 04/23/2024 10:56 AM EST .[employer] cup Lot#[id number] Exp. 10/06/25 Internal Pass Control negative AMP, BAR, BUP, BZO, RENETTA, FTY, MDMA, MET, MOP, MTD, OXY, PCP, TCA, THC. [facility] POINT OF CARE TEST ENTER/EDIT OR DERABLES Edited Result - Final * D Dimer High Sensitivity (04/20/2024 1:21 PM EST) D Dimer High Sensitivity 218 NG/ML [facility] Comment:D-DIMER HS REFERENCE RANGENote: Our [...] MD LAB BLOOD ORDERABLES Final Resul t [facility] [address] [facility] [place] [phone] * XR Chest 2 Views (04/20/2024 1:05 PM EST) Anatomical Region Laterality Modality Chest Radiographic Griselda ging 04/20/2024 1:05 PM EST Narrative 04/21/2024 9:57 AM EST ? [facility] ?[address] ?[place] [address] ?XRay Report ? Signed ? Patient: Nuvia Fay ?MR ?? #: [id number] ? : 1960 ?Acct:[id number] ? Age/Sex: 63 / F ?ADM Date: 04/20/24 ? Loc: HO.XRAY ? Attending Dr: Chava Presley MD ? Ordering Physician: CHAVA PRESLEY MD ?? Date of Service: 04/20/24 ?? Procedure(s): XR chest 2V ?? Accession Number(s): [id number] ? cc: CHAVA PRESLEY MD; ANTHONY RUIZ [...] DD/ 1305 ? TD/TT: 04/20/24 1310 ? Shut Off Worker: MSM ? Procedure Note Otoniel, Image - 04/21/[address] [address] XRay Report Signed Patient: Nuvia Fay EMR #: [id number] : 1960cct:[id number] Age/Sex: 63 / FADM Date: 04/20/24 Loc: HO.XRAY Attending Dr: Chava Presley MD Ordering Physician: CHAVA PRESLEY MD Date of Service: 04/20/24 Procedure(s): XR chest 2V Accession Number(s): [id number] cc: CHAVA PRESLEY MD; ANTHONY RUIZ NP [...] 04/21/24 0954 DD/ 1305 TD/TT: 04/20/24 1310 Shut Off Worker: NANCY Chava Presley MD IMG XR PROCEDURES Edited Result - Final * POCT Rapid Influenza B BAILEY ID NOW (04/15/2024 2:02 PM EST) Influenza B Negative Negative, Indeterminate [facility] QC Media Lot # [id number] [facility] Lot# Expiration Date [id number] [facility] Swab 04/15/2024 2:02 PM EST Anthony PAGE POINT OF CARE TEST ENTER/EDIT OR DERABLES Final Result [facility] [address] [place] [phone] * POCT Rapid Covid-19 BinaxNOW (04/15/2024 2:01 PM EST) Rapid COVID Ag Negative QC Media Lot # [id number] Lot# Expiration Date ,026 Swab 04/15/2024 2:01 PM EST Anthony Ruiz ANP POINT OF CARE TEST ENTER/EDIT OR DERABLES Final Result * POCT Rapid Influenza A BAILEY ID NOW (04/15/2024 1:59 PM EST) Influenza A Negative Negative, Indeterminate [facility] QC Media Lot # [id number] [facility] Lot# Expiration Date , [facility] Swab 04/15/2024 1:59 PM EST Anthony Ruiz [facility] POINT OF CARE TEST ENTER/EDIT OR DERABLES Edited Result - Final [facility] [address] [place] [address] [phone] * BI Mammogram Screening Tomosynthesis Bilateral (04/12/2024 1:48 PM EST) Anatomical Region Laterality Modality Breast Bilateral Mammography 04/12/2024 1:48 PM EST Narrative 04/17/2024 12:38 PM EST ? [facility] [place] ? [address] [place] [address] ? Mammography Report ? Signed ? Patient: Avinashbrendan Gamezon,Nuvia E ?MR ?? #: [id number] ? : 1960 ?Acct:[id number] ? Age/Sex: 63 / F ?ADM Date: 02/24/25 ? Loc: HO.MAMMO ? Attending Dr: Monica Lozano CNM ? Ordering Physician: Monica Lozano CNM ?Results: 2Beni ?? gn Findings ? Date of Service: 04/12/24 ?Follow Up: 1 Year From Orig ?? inal Mammogram ? Procedure(s): MM tomosynthesis screening BI ?? Accession Number(s): [id number] ? cc: Monica Lozano CNM; ANTHONY RUIZ [...] DD/ 1348 ? TD/TT: 04/12/24 1405 ? Shut Off Worker: ? Procedure Note Donotuseinterpreter, Image - [facility] [address] [place] [address] Mammography Report Signed Patient: Nuvia Fay EMR #: [id number] : 1960cct:[id number] Age/Sex: 63 / FADM Date: 04/12/24 Loc: HO.MAMMO Attending Dr: Monica Lozano CNM Ordering Physician: Monica Lozanoesults: 2Beni gn Findings Date of Service: 04/12/24Follow Up: 1 Year From Orig inal Mammogram Procedure(s): MM tomosynthesis screening BI Accession Number(s): [id number] cc: Monica Lozano CNM; ANTHONY RUIZ NP [...] signed by Cherrie Roberts DO in OV> 03/01/25 1235 DD/ 1348 TD/TT: 04/12/24 1405 Shut Off Worker: [facility] External Provider IMG BI PROCEDURES Edited Result - Final * CT Abdomen Pelvis w/ Contrast (03/20/2024 7:20 PM EST) Anatomical Region Laterality Modality Body, Pelvis, Abdomen Computed T omography 03/20/2024 7:20 PM EST Narrative 03/20/2024 7:23 PM EST ? [facility] ?[address] ?[place] [address] ? [address] Scan Report ? Signed ? Patient: Nuvia Fay ?MR ?? #: [id number] ? : 1960 ?Acct:[id number] ? Age/Sex: 63 / F ?ADM Date: 03/20/24 ? Loc: HO.ED ? Attending Dr: ? Ordering Physician: Maritza Mckeon ?? Date of Service: 03/20/24 ?? Procedure(s): CT abdomen pelvis w IV con ?? Accession Number(s): [id number] ? cc: Maritza Mckeon; ANTHONY RUIZ NP ? Report Number: ?? [id number]: Total DLP = ??844.00 mGy-cm ? CLINICAL HISTORY: abdominal wall cellulitis ?? abscess ? CT abdomen and pelvis with contrast ? Comparison: CT/MN/SR - CT ABDOMEN WO/W IV CON - [...] ? DD/ 19 ? TD/TT: 03/20/241919 ? Shut Off Worker: ? Procedure Note Vinicius Frederick - 03/20/[address] [address] [address] Scan Report Signed Patient: Nuvia Fay EMR #: [id number] : 1960cct:[id number] Age/Sex: 63 / FADM Date: 03/20/24 Loc: HO.ED Attending Dr: Ordering Physician: Maritza Mckeon Date of Service: 03/20/24 Procedure(s): CT abdomen pelvis w IV con Accession Number(s): [id number] cc: Maritza Mckeon; ANTHONY RUIZ NP Report Number: [id number]: Total DLP = 844.00 mGy-cm CLINICAL HISTORY: abdominal wall cellulitis abscess CT abdomen and pelvis with contrast Comparison: CT/MN/SR - CT ABDOMEN WO/W IV CON - [...] in OV> 03/20/241921 DD/ 19 TD/TT: 03/20/241919 Shut Off Worker: [facility] External Provider IMG CT PROCEDURES Edited Result - Final * Magnesium (03/20/2024 2:28 PM EST) Magnesium 2.2 1.6 - 2.6 mg/dL [facility] 03/20/2024 2:28 PM EST 03/20/2024 2:33 PM EST Generic External Data Provider LAB BLOOD ORDERAB LES Final Result [facility] [address] [place] [phone] * Lipase (03/20/2024 2:28 PM EST) Lipase 16 8 - 78 U/L [facility] 03/20/2024 2:28 PM EST 03/20/2024 2:33 PM EST us Generic External Data Provider LAB BLOOD ORDERAB LES Final Result Performing Organization Address [facility]/ZIP Co de Phone Number [facility] [address] [place] [phone] * (ABNORMAL) Hepatic Function Panel (03/20/2024 2:28 PM EST) Bilirubin, Total 0.4 0.0 - 1.0 mg/dL [facility] Bilirubin, Direct 0.2 0.0 - 0.5 mg/dL [facility] Aspartate Amino Transferase 173(H) 5 - 31 U/L [facility] Alanine Aminotransferase 249(H) 0 - 31 U/L [facility] Total Protein 7.8 6.5 - 8.0 g/dL [facility] Albumin Level 3.8 3.5 - 5.0 g/dL [facility] Alkaline Phosphatase 138(H) 39 - 117 U/L [facility] 03/20/2024 2:28 PM EST 03/20/2024 2:33 PM EST us Generic External Data Provider LAB BLOOD ORDERAB LES Final Result Performing Organization Address [facility] Co de Phone Number [facility] [address] [place] [phone] * (ABNORMAL) Basic Metabolic Panel (03/20/2024 2:28 PM EST) Sodium 143 135 - 145 mmol/L [facility] Potassium 3.7 3.3 - 5.1 mmol/L [facility] Chloride 112(H) 96 - 108 mmol/L [facility] Carbon Dioxide 23 22 - 29 mmol/L [facility] Anion Gap 12 12 - 20 [facility] Urea Nitrogen (BUN) 13 9 - 16 mg/dL [facility] Creatinine, Serum 0.82 0.5 - 1.4 mg/dL [facility] Creatinine Clr Calc Pharmacy 73.7 [facility] Comment:Provided height and weight: 157.48 cm,91.172 kg.eGFR (calculated from the MDRD study equation) and eCrCl(calculated from the Cockcroft-Gault equation) are based ondifferent parameters and may not yield comparable results.If eCrCl result is absurd, please check patient'sheight/weight. Estimated Glomerular Filt Rate >60 [facility] Comment:Chronic Kidney Disea se: Estimated GFR < 60 mL/min/1.89u0Wlarbs Kidney Disease: Estimated GFR < 15 mL/min/1.73m2 Glucose 112 60 - 115 mg/dL [facility] Calcium 8.7 8.4 - 10.2 mg/dL [facility] 03/20/2024 2:28 PM EST 03/20/2024 2:33 PM EST [facility] External Data Provider LAB BLOOD ORDERAB LES Final Result Performing Organization Address [facility]/ZIP Co de Phone Number [facility] [address] [place] [phone] * Albumin, Random Urine W/Creatinine (01/02/2024 8:44 AM EST) Creatinine, Urine 47.20 mg/dL [facility] Microalbumin Urine 7.0 mg/L [facility] Microalbum Creatinine Ratio Ur 14.8 <30 ug/mg cr [facility] Comment:Albumin/Creatinine R atio Reference Ranges: Normal: < 30 ug/mg creatinine Microalbuminuria: 30 - 300 ug/mg creatinineClinical Albuminuria: > 300 ug/mg creatinine Urine (Urine, Random) 01/02/2024 8:44 AM EST 01/02/2024 11:09 AM EST us Anthony PAGE LAB URINE ORDERABLES Final Resul t Performing Organization Address [facility] Co de Phone Number [facility] [address] [place] [phone] * (ABNORMAL) Hemoglobin A1c (01/02/2024 8:44 AM EST) Hemoglobin A1c 6.6(H) <6.0 % [facility] Comment:Hemoglobin A1C Refer ence Range Adults: 4.8 - 6.0 % Non diabetic: < 6.0 % Goal: < 7.0 %Additional Action Suggested: > 8.0 %Note: Hemoglobin A1c results are invalid for patients with abnormal amounts of HbF. Blood transfusions may impact the HbA1c concentration in the patient sample. Estimated Average Glucose 143 mg/dL [facility] Comment:eAG = Estimated ave rage glucose which is %A1C expressed asaverage glucose, using the formula of the Z7A-QyszrwcFjzlcms Glucose study (ADAG), Diabetes Care, Vol.31,#8,Sep. 2007 01/02/2024 8:44 AM EST 01/02/2024 11:03 AM EST us Generic External Data Provider LAB BLOOD ORDERAB LES Final Result Performing Organization Address City/State/[facility] Co de Phone Number [facility] [address] [place] [phone] * Lipid Panel, Standard (01/02/2024 8:44 AM EST) Triglycerides 93 <150 mg/dL [facility] Comment:Desirable Triglyceri de: less than 150 mg/dLBorderline High Triglyceride 150-199 mg/dLHigh Triglyceride: 200-499 mg/dLVery High Triglyceride: greater than or equal to 5OO mg/dL Cholesterol 177 <200 mg/dL [facility] Comment:Desirable Cholestero l: less than 200 mg/dLBorderline High Cholesterol: 200-239 mg/dLHigh Cholesterol: greater than 239 mg/dL LDL Cholesterol Calculated 90 <100 mg/dL [facility] Comment:Desirable LDL: less than 100 mg/dLNear Optimal/Above Optimal LDL: 110- 129 mg/dLBorderline High LDL: 130-159 mg/dLHigh LDL: 160-189 mg/dLVery High LDL: greater than or equal to 190 mg/dL HDL Cholesterol 69 >40 mg/dL [facility] Comment:Desirable HDL: great er than 40 mg/dL Note: This HDL assay may give artificially low results in patients with liver disease. 01/02/2024 8:44 AM EST 01/02/2024 11:03 AM EST us Generic External Data Provider LAB BLOOD ORDERAB LES Final Result [facility] [address] [place] [phone] [phone] * (ABNORMAL) Hm Colonoscopy (12/27/2021) Colonoscopy Abnormal(A ) Normal Historical Provider HEALTH MAINTENANCE Final Result * HPV E6/E7 RFLX ALFRED 16 18/45 (05/09/2020 11:19 AM EDT) HPV mRNA E6/E7 rflx Not Detected Not Detected [facility] Comment: Methodology: New Home Sales Consultant-Mediated Amplification This assay detects E6/E7 viral messenger RNA (mRNA) from 14 high-risk HPV types (16,18,31,33,35,39,45,51,52,56,58,59,66,68). The analytical performance characteristics of this assay have been determined by [employer]. The modifications have not been cleared or approved by the FDA. This assay has been validated pursuant to the CLIA regulations and is used for clinical purposes. For additional information, please refer to http://education.[employer] Experience/faq/MOJ707e5 (This link if provided for information/ educational purposes only.) THIS TEST WAS PERFORMED AT: [facility] [address] [place] [address] [address]LO[address] [place], [place] ??[phone] HERNAN WARREN MD 05/09/2020 11:1 9 AM EDT us [facility] HISTORICAL/NON ORDERABLE LABS Fi nal Result Performing Organization Address City/[facility]/ZIP Co de Phone Number [facility] [address] from Last 3 Months or Most Recently Relevant to Health Maintenance Insurance [facility] - [facility] Care Teams Director Supply Chain Relationship Specialty Start Date End Date Anthony Ruiz ANP [address] [place] [address] PCP - General Family Medicine 09/23/19 Yuri Pierre, MikeD [address] [place] [address] Pharmacist Internal Medicine 05/05/24 Basilio Hall MD [address] [place] [address] Cardiology 05/17/24 Ron Preciado MD [address] [place] [address] Pulmonary Disease 05/17/24
--- OUTSIDE RECORDS SUMMARY | 2024-06-08 13:06 | XMS_ITS | Encounter Summary ---
Author Organization [employer] [facility] Address [address] [facility] 7t [place] [address] Care Team Providers Care Elementary School Director Name Role Phone Sariah Vickers Primary Care Provider [phone] Yuri Pierre PharmD Unavailable [phone] Basilio Hall MD Unavailable [phone] Ron Preciado MD Unavailable [phone] Reason for Visit * Reason Onset Date Comments Med Refill 01/09/2024 Encounter Details Date Type Department Care Team (Late st Contact Info) Description 01/09/2024 Telephone [facility] [address] [place] [address] Sariah Vickers ANP [address] [place], [place] [phone] Med Refill Social History Tobacco Use Types [...] EDT Clinical Support [facility] [address] [place] [phone] Azeb Hall RN [address] [place] [address] 07/15/2024 1:00 PM EDT Office Visit [facility] [address] [place] [address] Sariah Vickres, ANP [address] [place] [address] 08/04/2024 10:00 AM EDT Medication Management [facility] [address] [place] [phone] Yuri Pierre, PharmD [address] [place] [address] 08/04/2024 1:00 PM EDT Office Visit [facility] ADULT DENTAL [address] [place] [address] Nuvia Duarte [address] [place] [address] documented as of this encounter Goals Goal [...] documented as of this encounter Care Teams Elementary [employer] Director Relationship Specialty Start Date End Date Sariah Vickers ANP [address] [place] [address] PCP - General Family Medicine 09/23/19 Yuri Pierre PharmD [address] [place] [address] Pharmacist Internal Medicine 05/05/24 Basilio Hall MD [address] [place] [address] Cardiology 05/17/24 Ron Preciado MD [address] [place] [address] Pulmonary Disease 05/17/24 documented as of this encounter
--- OUTSIDE RECORDS SUMMARY | 2024-06-08 13:06 | XMS_ITS | Encounter Summary ---
Author Organization [employer] Address [address] [facility] 7t [place] [address] Care Team Providers Care Prism Inspector Name Role Phone Sariah Vickers Primary Care Provider Yuri Pierre PharmD Unavailable [phone] Basilio Hall MD Unavailable [phone] Ron Preciado MD Unavailable [phone] Reason for Visit * Reason Comments Med Refill Encounter Details Date Type Department Care Team (Late st Contact Info) Description 01/06/2024 Refill [facility] [address] [place] [address] Sariah Vickers, KAYLEE [address] [place] [address] Cervicalgia Social History Tobacco Use Types Packs/Day [...] Clinical Support [facility]INE [address] [place] [address] Azeb Hall, MARTIN [address] [place] [address] 07/15/2024 1:00 PM EDT Office Visit [facility] MED[facility]INE [address] [place] [address] Sariah Vickers ANP [address] [place] [address] 08/04/2024 10:00 AM EDT Medication Management [facility] [address] [place] [phone] Yuri Pierre, PharmD [address] [place] [address] 08/04/2024 1:00 PM EDT Office Visit [facility] ADULT DENTAL [address] [place] [address] Nvuia Duarte [address] [place] [address] documented as of this encounter Goals Goal [...] documented as of this encounter Care Teams Prism Inspector Relationship Specialty Start Date End Date Sariah Vickers ANP [address] [place] [address] PCP - General Family Medicine 09/23/19 Yuri Pierre PharmD [address] [place] [address] Pharmacist Internal Medicine 05/05/24 Basilio Hall MD [address] [place] [address] Cardiology 05/17/24 Ron Preciado MD [address] [place] [address] Pulmonary Disease 05/17/24 documented as of this encounter
--- OUTSIDE RECORDS SUMMARY | 2024-06-08 13:06 | XMS_ITS | Encounter Summary ---
Author Organization [employer] Address [address] [facility] 7t [place] [address] Care Team Providers Care Grades 9 Through 12 Teacher Name Role Phone Sariah Vickers Primary Care Provider [phone] Yuri Pierre PharmD Unavailable [phone] Basilio Hall MD Unavailable [phone] Ron Preciado MD Unavailable [phone] Reason for Visit * Reason Comments Med Refill Encounter Details Date Type Department Care Team (Late st Contact Info) Description 10/03/2023 Refill [facility] [address] [place], [place] [phone] Sariah Vickers ANP [address] [place], [place] [phone] Chronic SI joint pain Social History Tobacco [...] 07/02/2024 11:00 AM EDT Clinical Support [facility] [address] [place] [address] Azeb Hall, MARTIN [address] [place] [address] 07/15/2024 1:00 PM EDT Office Visit [facility] [address] [place] [address] Sariah Vickers, ANP [address] [place] [address] 08/04/2024 10:00 AM EDT Medication Management [facility] [address] [place] [address] Yuri Pierre, PharmD [address] [place] [address] 08/04/2024 1:00 PM EDT Office Visit [facility] ADULT DENTAL [address] [place] [address] Nuvia Duarte [address] [place] [address] documented as of this encounter Goals Goal [...] documented as of this encounter Care Teams Grades 9 Through 12 Teacher Relationship Specialty Start Date End Date Sariah Vickers ANP [address] [place] [address] PCP - General Family Medicine 09/23/19 Yuri Pierre PharmD [address] [place] [address] Pharmacist Internal Medicine 05/05/24 Basilio Hall MD [address] [place] [address] Cardiology 05/17/24 Ron Preciado MD [address] [place] [address] Pulmonary Disease 05/17/24 documented as of this encounter
--- OUTSIDE RECORDS SUMMARY | 2024-06-08 13:06 | XMS_ITS | Encounter Summary ---
Author Organization [employer] Address [address] [facility] 7t [place] [address] Care Team Providers Care Managing Manager Name Role Phone Sariah Vickers Primary Care Provider [phone] Yuri Pierre PharmD Unavailable [phone] Basilio Hall MD Unavailable [phone] Ron Preciado MD Unavailable [phone] Reason for Visit * Reason Comments Med Refill Encounter Details Date Type Department Care Team (Late st Contact Info) Description 12/27/2022 Refill [facility] [address] [place] [address] Sariah Vickers ANP [address] [place] [address] Neck pain Social History Tobacco Use Types [...] Description 07/02/2024 11:00 AM EDT Clinical Support [facility] [address] [place] [address] Azeb Hall, MARTIN [address] [place] [address] 07/15/2024 1:00 PM EDT Office Visit [facility] [address] [place] [address] Sariah Vickers, ANP [address] [place] [address] 08/04/2024 10:00 AM EDT Medication Management [facility] [address] [place] [address] Yuri Pierre, PharmD [address] [place] [address] 08/04/2024 1:00 PM EDT Office Visit [facility] ADULT DENTAL [address] [place] [address] Nuvia Duarte [address] [place] [address] documented as of this encounter Goals Goal [...] Cervicalgia documented in this encounter Care Teams Managing Manager Relationship Specialty Start Date End Date Sariah Vickers ANP [address] [place] [address] PCP - General Family Medicine 09/23/19 Yuri Pierre, MikeD [address] [place] [address] Pharmacist Internal Medicine 05/05/24 Basilio Hall MD [address] [place] [address] Cardiology 05/17/24 Ron Preciado MD [address] [place] [address] Pulmonary Disease 05/17/24 documented as of this encounter
--- OUTSIDE RECORDS SUMMARY | 2024-06-08 13:07 | XMS_ITS | Encounter Summary ---
Author Organization [employer] [facility] Address [address] [facility] 7t [place] [address] Care Team Providers Care Him Specialists Name Role Phone Sariah Vickers Primary Care Provider Yuri Pierre PharmD Unavailable [phone] Basilio Hall MD Unavailable [phone] Ron Preciado MD Unavailable [phone] Reason for Visit * Reason Comments Med Refill Encounter Details Date Type Department Care Team (Late st Contact Info) Description 03/07/2023 Refill [facility] 230 [place] [address] Sariah Vickers ANP 230 [place] [address] Vertigo Social History Tobacco Use Types Packs/Day [...] Clinical Support [facility] [address] [place] [address] Azeb Hall, MARTIN 505 [place] [address] 07/15/2024 1:00 PM EDT Office Visit [facility] [address] [place] [address] Sariah Vickers, ANP 230 [place] [address] 08/04/2024 10:00 AM EDT Medication Management [facility] [address] [place] [address] Yuri Pierre, PharmD [address] [place] [address] 08/04/2024 1:00 PM EDT Office Visit [facility] DENTAL [address] [place] [address] Nuvia Duarte 230 [place] [address] documented as of this encounter Goals Goal [...] giddiness documented in this encounter Care Teams Him Specialists Relationship Specialty Start Date End Date Sariah Vickers ANP 230 [place] [address] PCP - General Family Medicine 09/23/19 Yuri Pierre, MikeD [address] [place] [address]71 Pharmacist Internal Medicine 05/05/24 Basilio Hall MD [address] [place] [address] Cardiology 05/17/24 Ron Preciado MD [address] [place] [address] Pulmonary Disease 05/17/24 documented as of this encounter
--- OUTSIDE RECORDS SUMMARY | 2024-06-08 13:07 | XMS_ITS | Encounter Summary ---
Author Organization [employer] [facility] Address 75 [facility] 7t [place] [address] Care Team Providers Care Fuel Oil Truck Driver Name Role Phone Sariah Vickers Primary Care Provider [phone] Yuri Pierre PharmD Unavailable [phone] Basilio Hall MD Unavailable [phone] Ron Preciado MD Unavailable [phone] Reason for Visit * Reason Onset Date Comments Med Refill Durable Medical Equipment 07/15/2023 Foam M attress/Raised Toilet Seat Encounter Details Date Type Department Care Team (Late st Contact Info) Description 07/15/2023 Refill [facility] 230 [place], [place] [phone] Sariah Vickers ANP 230 [place], [place] [phone] Neck pain Social History Tobacco Use Types [...] Please see request sent via email by [facility] Package Delivery Room Service Runner Arlin Baker. Please Advise. Good morning, [facility] Contact Info) Description 07/02/2024 11:00 AM EDT Clinical Support [address] [address] Azeb Hall, RN 505 [place] [address] 07/15/2024 1:00 PM EDT Office Visit [facility] [address] [place] [address] Sariah Vickers ANP [address] [place] [address] 08/04/2024 10:00 AM EDT Medication Management [facility] [address] [place] [address] Yuri Pierre PharmD [address] [place] [address] 08/04/2024 1:00 PM EDT Office Visit [facility] ADULT DENTAL [address] [place] [address] Nuvia Duarte [address] [place] [address] documented as of this encounter Goals Goal [...] documented as of this encounter Care Teams Fuel Oil Truck Driver Relationship Specialty Start Date End Date Sariah iVckers ANP [address] [place] [address] PCP - General Family Medicine 09/23/19 Yuri Pierre PharmD [address] [place] [address] Pharmacist Internal Medicine 05/05/24 Basilio Hall MD 596 [place] [address] Cardiology 05/17/24 Ron Preciado MD [address] [place] [address] Pulmonary Disease 05/17/24 documented as of this encounter
--- OUTSIDE RECORDS SUMMARY | 2024-06-08 13:07 | XMS_ITS | Encounter Summary ---
Author Organization [facility] Address 75 [facility] 7t [place] [address] Care Team Providers Care Transplant Registered Nurse Name Role Phone Sariah Vickers Primary Care Provider [phone] Yuri Pierre PharmD Unavailable [phone] Basilio Hall MD Unavailable [phone] Ron Preciado MD Unavailable [phone] Reason for Visit * Reason Comments Med Refill Encounter Details Date Type Department Care Team (Late st Contact Info) Description 05/23/2024 Refill [facility] [address] [place] [address] Sariah Vickers, KAYLEE 230 [place] [address] Cervicalgia Social History Tobacco Use Types Packs/Day [...] 11:00 AM EDT Clinical Support [facility] [address] [place] [address] Azeb Hall, MARTIN 505 [place] [address] 07/15/2024 1:00 PM EDT Office Visit [facility] [address] [place] [address] 267[address] Sariah Vickers ANP 230 [place] [address] 08/04/2024 10:00 AM EDT Medication Management [facility] [address] [place] [address] 28[address] Yuri Pierre, PharmD [address] [place] [address] 08/04/2024 1:00 PM EDT Office Visit [facility] [address] [place] [address] Nuvia Duarte 230 [place] [address] documented as of this encounter Goals Goal [...] documented as of this encounter Care Teams Transplant Registered Nurse Relationship Specialty Start Date End Date Sariah Vickers ANP 230 [place] [address] PCP - General Family Medicine 09/23/19 Yuri Pierre PharmD 230 [place] [address] Pharmacist Internal Medicine 05/05/24 Basilio Hall MD 596 [place] [address] Cardiology 05/17/24 Ron Preciado MD [address] [place] [address] Pulmonary Disease 05/17/24 documented as of this encounter
--- OUTSIDE RECORDS SUMMARY | 2024-06-08 13:07 | XMS_ITS | Encounter Summary ---
Author Organization [employer] Address 75 [facility] 7t [place] [address] Care Team Providers Care Yard Cleaner Name Role Phone Sariah Vickers Primary Care Provider [phone] Yuri Pierre PharmD Unavailable [phone] Basilio Hall MD Unavailable [phone] Ron Preciado MD Unavailable [phone] Reason for Visit * Reason Comments Med Refill Encounter Details Date Type Department Care Team (Late st Contact Info) Description 05/09/2023 Refill [facility] 230 [place] [address] Sariah Vickers ANP 230 [place] [address] High cholesterol Social History Tobacco Use Types [...] EDT Clinical Support [facility] [address] [place] [address] Azeb Hall, MARTIN 505 [place] [address] 07/15/2024 1:00 PM EDT Office Visit [facility] [address] [place] [address] Sariah Vickers, ANP 230 [place] [address] 08/04/2024 10:00 AM EDT Medication Management [facility] [address] [place] [address] Yuri Pierre, PharmD [address] [place] [address] 08/04/2024 1:00 PM EDT Office Visit [facility] ADULT [facility] [address] [place] [address] Nuvia Duarte 230 [place] [address] documented as of this encounter Goals Goal [...] hypercholesterolemia documented in this encounter Care Teams Yard Cleaner Relationship Specialty Start Date End Date Sariah Vickers ANP 230 [place] [address] PCP - General Family Medicine 09/23/19 Yuri Pierre, MikeD [address] [place] [address]80 Pharmacist Internal Medicine 05/05/24 Basilio Hall MD [address] [place] [address] Cardiology 05/17/24 Ron Preciado MD [address] [place] [address] Pulmonary Disease 05/17/24 documented as of this encounter
--- OUTSIDE RECORDS SUMMARY | 2024-06-08 13:07 | XMS_ITS | Encounter Summary ---
Author Organization [facility] [facility] Address 75 [facility] 7t [place] [address] Care Team Providers Care Credit Union Examiner Name Role Phone Sariah Vickers Primary Care Provider [phone] Yuri Pierre PharmD Unavailable [phone] Basilio Hall MD Unavailable [phone] Ron Preciado MD Unavailable [phone] Reason for Visit * Reason Comments Med Refill Encounter Details Date Type Department Care Team (Late st Contact Info) Description 07/10/2022 Refill [facility] 230 [place] [address] Sariah Vickers ANP 230 [place] [address] Vertigo Social History Tobacco Use Types Packs/Day [...] Description 07/02/2024 11:00 AM EDT Clinical Support [address] [address] Azeb Hall, RN 505 [place] [address] 07/15/2024 1:00 PM EDT Office Visit [address] [address] Sariah Vickers ANP [address] [place] [address] 08/04/2024 10:00 AM EDT Medication Management [address] [address] Yuri Pierre, Dileep [address] [place] [address] 08/04/2024 1:00 PM EDT Office Visit [facility] [address] [place] [address] Nuvia Duarte [address] [place] [address] documented as of this encounter Visit Diagnoses Diagnosis Vertigo Dizziness and giddiness documented in this encounter Care Teams Credit Union Examiner Relationship Specialty Start Date End Date Sariah Vickers ANP [address] [place] [address] PCP - General Family Medicine 09/23/19 Yuri Pierre, PharmD [address] [place] [address]649 Pharmacist Internal Medicine 05/05/24 Basilio Hall MD 596 [place] [address] Cardiology 05/17/24 Ron Preciado MD [address] [place] [address] Pulmonary Disease 05/17/24 documented as of this encounter
--- OUTSIDE RECORDS SUMMARY | 2024-06-08 13:07 | XMS_ITS | Encounter Summary ---
Author Organization [facility] Address [address] [facility] 7t [place] [address] Care Team Providers Care Coal Cutter Name Role Phone Sariah Vickers Primary Care Provider [phone] Yuri Pierre PharmD Unavailable [phone] Basilio Hall MD Unavailable [phone] Ron Preciado MD Unavailable [phone] Reason for Visit * Reason Onset Date Comments Referral 05/17/2022 Encounter Details Date Type Department Care Team (Late st Contact Info) Description 05/17/2022 Telephone [facility] 230 [place] [address] Sariah Vickers ANP 230 [place] [address] Referral Social History Tobacco Use Types Packs/Day [...] guide to vertigo. Please contact pt at [phone] documented in this encounter Plan of Treatment Upcoming Encounters Date Type Department Care Team (Late st Contact Info) Description 07/02/2024 11:00 AM EDT Clinical Support [address] [address] Azeb Hall RN 505 [place] [address] 07/15/2024 1:00 PM EDT Office Visit [facility] [address] [place] [address] Sariah Vickers ANP 230 [place] [address] 08/04/2024 10:00 AM EDT Medication Management [address] [address] Yuri Pierre PharmD [address] [place] [address] 08/04/2024 1:00 PM EDT Office Visit [facility] AD[facility] DENT[facility] [address] [place] [address] Brendan Duartearis 230 [place] [address] documented as of this encounter Visit Diagnoses Not on filedocumented in this encounter Care Teams Coal Cutter Relationship Specialty Start Date End Date Sariah Vickers ANP [address] [place] [address]14 PCP - General Family Medicine 09/23/19 Yuri Pierre, MikeD [address] [place] [address] 11514 Pharmacist Internal Medicine 05/05/24 Basilio Hall MD 596 [place] [address] Cardiology 05/17/24 Ron Preciado MD [address] [place] [address] Pulmonary Disease 05/17/24 documented as of this encounter
--- OUTSIDE RECORDS SUMMARY | 2024-06-08 13:07 | XMS_ITS | Encounter Summary ---
Author Organization [employer] [facility] Address [address] [facility] 7t [place] [address] Care Team Providers Care Electrical Control Assembler Name Role Phone Sariah Vickers Primary Care Provider [phone] Yuri Pierre PharmD Unavailable [phone] Basilio Hall MD Unavailable [phone] Ron Preciado MD Unavailable [phone] Reason for Visit * Reason Comments Med Refill Encounter Details Date Type Department Care Team (Late st Contact Info) Description 07/12/2022 Refill [facility] 230 [place] [address] Sariah Vickers ANP 230 [place] [address] Social History Tobacco Use Types Packs/Day Years [...] 07/02/2024 11:00 AM EDT Clinical Support [address] [address] Azeb Hall, RN 505 [place] [address] 07/15/2024 1:00 PM EDT Office Visit [address] [address] Sariah Vickers ANP [address] [place] [address] 08/04/2024 10:00 AM EDT Medication Management [address] [address] Yuri Pierre, Dileep [address] [place] [address] 08/04/2024 1:00 PM EDT Office Visit [facility] ADULT DENTAL [address] [place] [address] Brendan Duartearis [address] [place] [address] documented as of this encounter Visit Diagnoses Not on filedocumented in this encounter Care Teams Electrical Control Assembler Relationship Specialty Start Date End Date Sariah Vickers ANP [address] [place] [address]29 PCP - General Family Medicine 09/23/19 Yuri Pierre, PharmD [address] [place] [address]54 Pharmacist Internal Medicine 05/05/24 Basilio Hall MD 596 [place] [address] Cardiology 05/17/24 Ron Preciado MD [address] [place] [address] Pulmonary Disease 05/17/24 documented as of this encounter
--- OUTSIDE RECORDS SUMMARY | 2024-06-08 13:07 | XMS_ITS | Encounter Summary ---
Author Organization [facility] Address 75 [facility] 7t [place] [address] Care Team Providers Care Supervisor Parking Lot Name Role Phone Sariah Vickers Primary Care Provider Yuri Pierre PharmD Unavailable [phone] Basilio Hall MD Unavailable [phone] Ron Preciado MD Unavailable [phone] Reason for Visit * Reason Comments Med Refill Encounter Details Date Type Department Care Team (Late st Contact Info) Description 07/17/2022 Refill [facility] 230 [place] [address] Sariah Vickers ANP 230 [place] [address] Neck pain Social History Tobacco Use Types [...] Description 07/02/2024 11:00 AM EDT Clinical Support [address] [address] Azeb Hall, RN 505 [place] [address] 07/15/2024 1:00 PM EDT Office Visit [facility] [address] [place] [address] Sariah Vickers ANP [address] [place] [address] 08/04/2024 10:00 AM EDT Medication Management [address] [address] Yuri Pierre, Dileep [address] [place] [address] 08/04/2024 1:00 PM EDT Office Visit [facility] ADULT DENTAL [address] [place] [address] Nuvia Duarte [address] [place] [address] documented as of this encounter Visit Diagnoses Diagnosis Neck pain Cervicalgia documented in this encounter Care Teams Supervisor Parking Lot Relationship Specialty Start Date End Date Sariah Vickers ANP [address] [place] [address] PCP - General Family Medicine 09/23/19 Yuri Pierre, PharmD [address] [place] [address] Pharmacist Internal Medicine 05/05/24 Basilio Hall MD 596 [place] [address] Cardiology 05/17/24 Ron Preciado MD [address] [place] [address] Pulmonary Disease 05/17/24 documented as of this encounter
--- OUTSIDE RECORDS SUMMARY | 2024-06-08 13:07 | XMS_ITS | Encounter Summary ---
Author Organization [facility] Address 75 [facility] 7t [place] [address] Care Team Providers Care Quick Sketch Artist Name Role Phone Sariah Vickers Primary Care Provider [phone] Yuri Pierre PharmD Unavailable [phone] Basilio Hall MD Unavailable [phone] Ron Preciado MD Unavailable [phone] Reason for Visit * Reason Comments Med Refill Encounter Details Date Type Department Care Team (Late st Contact Info) Description 05/21/2023 Refill [facility] 230 [place] [address] Sariah Vickers ANP 230 [place] [address] Neck pain Social History Tobacco Use Types [...] Support [facility] MEDICINE [address] [place] [address] Azeb aHll, RN 505 [place] [address] 07/15/2024 1:00 PM EDT Office Visit [facility] MED[facility]INE [address] [place] [address] Sariah Vickers, KAYLEE [address] [place] [address] 08/04/2024 10:00 AM EDT Medication Management [facility] [address] [place] [address] Yuri Pierre, PharmD [address] [place] [address] 08/04/2024 1:00 PM EDT Office Visit [facility] ADULT DENTAL 230 [place] [address] Nuvia Duarte 230 [place] [address] documented as of this encounter Goals Goal [...] Cervicalgia documented in this encounter Care Teams Quick Sketch Artist Relationship Specialty Start Date End Date Sariah Vickers ANP 230 [place] [address] PCP - General Family Medicine 09/23/19 Yuri Pierre, MikeD 230 [place] [address] Pharmacist Internal Medicine 05/05/24 Basilio Hall MD 596 [place] [address] Cardiology 05/17/24 Ron Preciado MD [address] [place] [address] Pulmonary Disease 05/17/24 documented as of this encounter
--- OUTSIDE RECORDS SUMMARY | 2024-06-08 13:07 | XMS_ITS | Encounter Summary ---
Author Organization [employer] Address 75 [facility] 7t [place] [address] Care Team Providers Care Senior Drupal Developer Name Role Phone Sariah Vickers KAYLEE Primary Care Provider [phone] Yuri Pierre PharmD Unavailable [phone] Basilio Hall MD Unavailable [phone] Ron Preciado MD Unavailable [phone] Reason for Visit * Reason Comments Med Refill Encounter Details Date Type Department Care Team (Late st Contact Info) Description 03/04/2023 Refill [facility] 230 [place] [address] Brittney Nava MD 230 [place], [place] [phone] Social History Tobacco Use Types Packs/Day Years [...] Clinical Support [facility] [address] [place] [address] Azeb Hall, RN 505 [place] [address] 07/15/2024 1:00 PM EDT Office Visit [facility] [address] [place] [address] Sariah Vickers, ANP 230 [place] [address] 08/04/2024 10:00 AM EDT Medication Management [facility] [address] [place] [address] Yuri Pierre, PharmD [address] [place] [address] 08/04/2024 1:00 PM EDT Office Visit [facility] [address] [place] [address] Nuvia Duarte 230 [place] [address] documented as of this encounter Goals Goal [...] on filedocumented in this encounter Care Teams Senior Drupal Developer Relationship Specialty Start Date End Date Sariah Vickers ANP 230 [place] [address] PCP - General Family Medicine 09/23/19 Yuri Pierre, MikeD [address] [place] [address] Pharmacist Internal Medicine 05/05/24 Basilio Hall MD [address] [place] [address] Cardiology 05/17/24 Ron Preciado MD [address] [place] [address] Pulmonary Disease 05/17/24 documented as of this encounter
--- OUTSIDE RECORDS SUMMARY | 2024-06-08 13:07 | XMS_ITS | Encounter Summary ---
Author Organization [employer] [facility] Address 75 [facility] 7t [place] [address] Care Team Providers Care Senior C Software Developer Name Role Phone Sariah Vickers Primary Care Provider [phone] Yuri Pierre PharmD Unavailable [phone] Basilio Hall MD Unavailable [phone] Ron Preciado MD Unavailable [phone] Reason for Visit * Reason Comments Med Refill Encounter Details Date Type Department Care Team (Late st Contact Info) Description 02/28/2023 Refill [facility] 230 [place] [address] Sariah Vickers ANP 230 [place] [address] Cervicalgia Social History Tobacco Use Types Packs/Day [...] [facility] [address] [place] [address] Azeb Hall, MARTIN 505 [place] [address] 07/15/2024 1:00 PM EDT Office Visit [facility] [address] [place] [address] Sariah Vickers, ANP 230 [place] [address] 08/04/2024 10:00 AM EDT Medication Management [facility] [address] [place] [address] Yuri Pierre, PharmD [address] [place] [address] 08/04/2024 1:00 PM EDT Office Visit [facility] ADULT DENTAL [address] [place] [address] Nuvia Duarte 230 [place] [address] documented as of this encounter Goals Goal [...] documented in this encounter Care Teams Senior C Software Developer Relationship Specialty Start Date End Date Sariah Vickers ANP 230 [place] [address] PCP - General Family Medicine 09/23/19 Yuri Pierre, MikeD 230 [place] [address] Pharmacist Internal Medicine 05/05/24 Basilio Hall MD 596 [place] [address] Cardiology 05/17/24 Ron Preciado MD [address] [place] [address] Pulmonary Disease 05/17/24 documented as of this encounter
--- OUTSIDE RECORDS SUMMARY | 2024-06-08 13:07 | XMS_ITS | Data Portability ---
Author Organization [employer] Address [address] [place] [id number] Care Team Providers Care Supervisor Seaming Name Role Phone HIM CCA OTHER Assessment [...] Name and Address Organization Details Recorded Time 96272 aspirin medicatio n Not available Not available Not available 05/29/2024 1191 RxNorm Not Available [facility] - production 13:30:18 79533 naproxen medicatio n Not available Not available [...] Not Available Not Available No t Available [facility] 10 billion cell-200 mg [...] Available No t Available [employer] Jalil 2 Jackson USE DIRECTED TO TEST BLOOD SUGAR EVERY [...] SNOMED-CT Code Diagnosis ICD10 Code Diagnosis Note [id number] Kathy Gonzalez MD Main - [address] [phone] 05/29/2024 16:18:16 05/30/2024 23:53:07 Wound finding [id number] Z51.89 Evaluation in the field was performed by my director of guidance colleague, as noted above, I provided real-time [...] Laws Member ID Guarantor Name 05/29/2024 1 [facility] - DOS ON OR AFTER 2022 - DUAL ELIGIBLE - CARE HOME OPTIONS AND ONE CARE (MEDICARE REPLACEMENT/ADV ANTAGE - HMO) Nuvia Da Silva [id number] Nuvia Da Silva Notes Date Note Type Note Provider Name and Address Organization Details Recorded Time 05/29/2024 text/html CRC Nurse Triage Notes (Tania Kan): Reason For Request: wound care after surgery Chief Complaints: Wound Care PMH: Diabetes Mellitus Type 2, Hyperlipidemia, Hypertension, Kidney Stones, Hysterectomy, Hypothyroidism, Asthma PMH Reviewed at 05/29/2024 - :30 Allergies Reviewed at 05/29/2024:30 Comments: Referral taken via Mowing 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, patient calling in to place a referral. [...] .................. .................. .................. .................. .................. .................. ............... Chief Relay Tester Note From Albert Murphy: Arrived to find patient ambulating in her apartment. Patient AOX4, GCS 15, skin pink warm and dry. Patient Welsh speaking only. Sommelier line used. Patient had hernia surgery on and is wondering if the steri strips are suppose to remain or if she needs to remove them. Educated patient that they stay and will fall off on their own. VS as noted. [facility] came on and was able to interact with patient. answered all questions for pt. Patient reassured. Red flags went over with pt. Patient denies any cp, sob, fevers. Incision looks clean and intact. .................. .................. .................. .................. .................. .................. .................. ............... [facility] Consulted: Kathy Gonzalez .................. .................. .................. .................. .................. .................. .................. ............... Disposition: Fulfilled Kathy Gonzalez MD [address] [facility],[address], [place], [address], [facility] STACK 05/29/2024 16:25:31 OBGyn Episode No OBEpisode recorded.
--- OUTSIDE RECORDS SUMMARY | 2024-06-08 13:07 | XMS_ITS | Encounter Summary ---
Author Organization [facility] Address [address] [facility] 7t [place] [address] Care Team Providers Care Burner Shaft Name Role Phone Sariah Vickers Primary Care Provider [phone] Yuri Pierre PharmD Unavailable [phone] Basilio Hall MD Unavailable [phone] Ron Preciado MD Unavailable [phone] Reason for Visit * Reason Comments Med Refill Encounter Details Date Type Department Care Team (Late st Contact Info) Description 06/30/2023 Refill [facility] [address] [place] [address] Sariah Vickers ANP [address] [place] [address] Neck pain Social History Tobacco Use Types [...] EDT Clinical Support [facility] [address] [place] [phone] Azeb Hall, RN [address] [place] [address] 07/15/2024 1:00 PM EDT Office Visit [facility] [address] [place] [address] Sariah Vickers, KAYLEE [address] [place] [address] 08/04/2024 10:00 AM EDT Medication Management [facility] [address] [place] [address] Yuri Pierre, PharmD [address] [place] [address] 08/04/2024 1:00 PM EDT Office Visit [facility] [address] [place] [address] Nuvia Duarte [address] [place] [address] documented as of this encounter Goals Goal [...] documented as of this encounter Care Teams Burner Shaft Relationship Specialty Start Date End Date Sariah Vickers ANP [address] [place] [address] PCP - General Family Medicine 09/23/19 Yuri Pierre PharmD [address] [place] [address] Pharmacist Internal Medicine 05/05/24 Basilio Hall MD [address] [place] [address] Cardiology 05/17/24 Ron Preciado MD [address] [place] [address] Pulmonary Disease 05/17/24 documented as of this encounter
--- OUTSIDE RECORDS SUMMARY | 2024-06-08 13:07 | XMS_ITS | Encounter Summary ---
Author Organization [employer] [facility] Address [address] [facility] 7t [place] [address] Care Team Providers Care Career Transition Specialist Name Role Phone Sariah Vickers Primary Care Provider [phone] Yuri Pierre PharmD Unavailable [phone] Basilio Hall MD Unavailable [phone] Ron Preciado MD Unavailable [phone] Reason for Visit * Reason Onset Date Comments Med Refill 03/04/2023 Encounter Details Date Type Department Care Team (Late st Contact Info) Description 03/04/2023 Telephone [facility] [address] [place], [place] [phone] Sariah Vickers ANP [address] [place], [place] [phone] Med Refill Social History Tobacco Use Types [...] 50 MG tablet To be sent to: [facility] [place], [place] - [address] [place] [address] documented in this encounter Plan of Treatment Upcoming Encounters Date Type Department Care Team (Late st Contact Info) Description 07/02/2024 11:00 AM EDT Clinical Support [facility] [address] [place] [phone] Azeb Hall RN [address] [place] [address] 07/15/2024 1:00 PM EDT Office Visit [facility] [address] [place] [phone] Sariah Vickers, ANP [address] [place] [address] 08/04/2024 10:00 AM EDT Medication Management [facility] [address] [place] [address] Yuri Pierre, PharmD [address] [place] [address] 08/04/2024 1:00 PM EDT Office Visit [facility] [address] [place] [address] Nuvia Duarte [address] [place] [address] documented as of this encounter Goals Goal [...] on filedocumented in this encounter Care Teams Career Transition Specialist Relationship Specialty Start Date End Date Sariah Vickers ANP [address] [place] [address] PCP - General Family Medicine 09/23/19 Yuri Pierre, MikeD [address] [place] [address] Pharmacist Internal Medicine 05/05/24 Basilio Hall MD [address] [place] [address] Cardiology 05/17/24 Ron Preciado MD [address] [place] [address] Pulmonary Disease 05/17/24 documented as of this encounter
--- OUTSIDE RECORDS SUMMARY | 2024-06-08 13:07 | XMS_ITS | Encounter Summary ---
Author Organization [employer] Address [address] [facility] 7t [place] [address] Care Team Providers Care Car Deliverer Name Role Phone Sariah Vickers Primary Care Provider [phone] Yuri Pierre PharmD Unavailable [phone] Basilio Hall MD Unavailable [phone] Ron Preciado MD Unavailable [phone] Reason for Visit * Reason Comments Med Refill Encounter Details Date Type Department Care Team (Late st Contact Info) Description 08/14/2022 Refill [facility] [address] [place] [address] Sariah Vickers, ANP [address] [place] [address] Severe persistent asthma without complication Social History [...] Description 07/02/2024 11:00 AM EDT Clinical Support [address] [address] Azeb Hall RN [address] [place] [address] 07/15/2024 1:00 PM EDT Office Visit [facility] [address] [place] [address] Sariah Vickers ANP [address] [place] [address] 08/04/2024 10:00 AM EDT Medication Management [address] [address] Yuri Pierre, Dileep [address] [place] [address] 08/04/2024 1:00 PM EDT Office Visit [facility] [address] [place] [address] Felicia, Nuvia [address] [place] [address] documented as of this encounter Visit Diagnoses Diagnosis Severe persistent asthma without complication documented in this encounter Care Teams Car Deliverer Relationship Specialty Start Date End Date Sariah Vickers ANP [address] [place] [address] PCP - General Family Medicine 09/23/19 Yuri Pierre, PharmD [address] [place] [address] Pharmacist Internal Medicine 05/05/24 Basilio Hall MD [address] [place] [address] Cardiology 05/17/24 Ron Preciado MD [address] [place] [address] Pulmonary Disease 05/17/24 documented as of this encounter
--- OUTSIDE RECORDS SUMMARY | 2024-06-08 13:07 | XMS_ITS | Encounter Summary ---
Author Organization [employer] Address [address] [facility] [address]t [place] [address] Care Team Providers Care Tipple Repairer Name Role Phone Sariah Vickers Primary Care Provider [phone] Yuri Pierre PharmD Unavailable [phone] Basilio Hall MD Unavailable [phone] Ron Preciado MD Unavailable [phone] Reason for Visit * Reason Comments Med Refill Encounter Details Date Type Department Care Team (Late st Contact Info) Description 07/10/2023 Refill [facility] [address] [place], [place] [phone] Sariah Vickers ANP [address] [place], [place] [phone] Chronic SI joint pain Social History Tobacco [...] [facility] [address] [place] [address] Azeb Hall, MARTIN [address] [place] [address] 07/15/2024 1:00 PM EDT Office Visit [facility] [address] [place] [address] Sariah Vickers, ANP [address] [place] [address] 08/04/2024 10:00 AM EDT Medication Management [facility] [address] [place] [address] Yuri Pierre, PharmD [address] [place] [address] 08/04/2024 1:00 PM EDT Office Visit [facility] [address] [place] [address] Nuvia Duarte [address] [place] [address] documented as of this encounter Goals Goal [...] documented as of this encounter Care Teams Tipple Repairer Relationship Specialty Start Date End Date Sariah Vickers ANP [address] [place] [address] PCP - General Family Medicine 09/23/19 Yuri Pierre PharmD [address] [place] [address] Pharmacist Internal Medicine 05/05/24 Basilio Hall MD [address] [place] [address] Cardiology 05/17/24 Ron Preciado MD [address] [place] [address] Pulmonary Disease 05/17/24 documented as of this encounter
== END 2024-06-08 11:32 | disposition home or self-care (01) ==
LOC: HO.HGS 11:00
PROVIDERS: PCP Nurse Practitioner Primary Care; Visit Provider Surgery
DX: Z09 Encounter for follow-up examination after completed treatment for conditions other than malignant neoplasm (principal)
CPT/HCPCS: 99212

== ENCOUNTER → 2024-06-08 10:59 | Outpatient (BNVA) | payer OTHER, SELFPAY | PROVIDERS: PCP Nurse Practitioner Primary Care; Visit Provider Surgery | DX: Z09 Encounter for follow-up examination after completed treatment for conditions other than malignant neoplasm (principal); Z87.19 Personal history of other diseases of the digestive system; Z98.890 Other specified postprocedural states | CPT/HCPCS: 99212 ==

== ENCOUNTER 2024-06-15 13:40 | Outpatient (AMB) | payer OTHER, SELFPAY ==
--- NOTE | 2024-06-15 13:44 | A.OFFVIS_ITS ---
Vital Signs 06/15/24 13:49 Height 5 ft 5 in Weight 194 lb 0.108 oz BMI 32.3 BP 123/83 Blood Pressure Location Lt brachial Position Sitting Pulse 92 Intake Visit Reasons: 6 mo f/u Intake Note: Nuvia presents in the office as a 6 month follow up. CC: She states that she is just waiting regarding her cholesterol levels - other than that she is okay. Classifications Officer Cc/Cm Required: Yes Allergies Fish Containing Products Allergy (Intermediate, Verified 06/15/24 13:46) Swelling vancomycin Allergy (Intermediate, Verified 06/15/24 13:46) Rash aspirin [Aspirin] Allergy (Mild, Verified 06/15/24 13:46) ITCHY THROAT azithromycin Allergy (Unknown, Verified 06/15/24 13:46) Unknown naproxen Allergy (Unknown, Verified 06/15/24 13:46) Unknown simvastatin Allergy (Unknown, Verified 06/15/24 13:46) Unknown onion [ONION] Adverse Reaction (Mild, Verified 06/15/24 13:46) RED FACE HPI HPI 6 mo f/u: Details: Assessment & Plan (1) Small bowel motility disorder: Code(s): K59.9 - Functional intestinal disorder, unspecified Category: Medical (2) Chronic idiopathic constipation: Code(s): K59.04 - Chronic idiopathic constipation Category: Medical (3) GERD (gastroesophageal reflux disease): Code(s): K21.9 - Gastro-esophageal reflux disease without esophagitis Category: Medical (4) OKEEFE (nonalcoholic steatohepatitis): Comment: LABS; 07/2011 LIver panel is totally normal, hemoglobin A1c covers around 7, alpha fetoprotein tumor marker at baseline is 1.6, 05/2018 autoimmune workup is negative, ferritin is normal at 49, she is immune to hepatitis a B and negative for hepatitis C. CURRENT LABS Laboratory Tests 06/02/2407/25/24 [id number]:[id number] Estimated GFR > 60 Total Bilirubin 0.3 0.4 AST 29 37 H ALT 43 H 50 H Alkaline Phosphatase 98 ULTRASOUND OF THE ABDOMEN 05/20/23 FINDINGS: PANCREAS: Limited visualization of pancreatic tail and head. Imaged portion of pancreatic body is unremarkable. ABDOMINAL AORTA: Atherosclerosis in the distal abdominal aorta with AP diameter of 2.5 cm. INFERIOR VENA CAVA: Visualized portions are normal. LIVER: Hepatomegaly, 16.1 cm. Increased hepatic parenchymal heterogeneity and echogenicity could be associated with hepatocellular disease/hepatic steatosis and substantially limits visualization. Correlation with liver function tests and clinical exam recommended to determine further management. GALLBLADDER: No gallstones. No gallbladder wall thickening. COMMON BILE DUCT: Normal in caliber measuring 0.8 cm in diameter. RIGHT KIDNEY: No hydronephrosis. No renal calculi. Limited visualization. The kidney measures 7.3 cm in maximum dimension. LEFT KIDNEY: 2.7 x 2.5 x 3.3 cm upper pole cyst. There is no indication for additional imaging at this time. No hydronephrosis. No renal calculi. Limited visualization. The kidney measures 10.5 cm in maximum dimension. SPLEEN: Normal. The spleen measures 9.5 cm in maximum dimension. FREE FLUID: None. US/US abdomen complete IMPRESSION: 1. Hepatomegaly, 16.1 cm. Increased hepatic parenchymal heterogeneity and echogenicity could be associated with hepatocellular disease/hepatic steatosis and substantially limits visualization. Correlation with liver function tests and clinical exam recommended to determine further management. 2. Atherosclerosis in the distal abdominal aorta with AP diameter of 2.5 cm. Code(s): K75.81 - Nonalcoholic steatohepatitis (OKEEFE) Category: Medical Plan CROATIAN #Kayla Hicks She continues on omeprazole, senna, Trulance and reglan 5mg. She was recently constipated and had her usual presentation of RUQ burning, but this cleared with magnesium citrate and she is now back to regular BM's. However, she is also in the process of up titration of her Ozempic which has an obvious effect on her CIC adn nausea r/t paresis. I educated her that she needs to let me know if her conditions become uncontrolled, as this can happen at times and we may need to adjust her GI regiman. Return office visit in 6 months CORRESPONDENCE On 05/31/24 @ 15:49 Umm Ellsworth Wrote To Umm Ellsworth (2) Looks like she has been seen for a post surgical cellulitis. But Bless her heart I am aware. On 05/31/24 @ 13:14 Osiris Wallace Wrote To Umm Ellsworth Deshaun May, patient had a follow up with Gen Surg today and was brought over to our dept as she wanted to look into when she has a follow up with you and to inform us that she was at the ED on 05/30/2024. Patient was here, records in - please review prn. patient provided with appt reminder in office with date and time. LABS: Laboratory Tests 05/30/24 13:17 WBC 6.0 Hgb 14.6 Hct 42.3 Plt Count 269 Estimated GFR > 60 Total Bilirubin 0.5 AST 197 H ALT 243 H Alkaline Phosphatase [address] abdomen and pelvis with contrast 03/20/2024 Comparison: CT/AZ/SR - CT ABDOMEN WO/W IV CON - 09/05/23 16:27 EDT Findings: No consolidation or effusion. There is a 3 cm cyst within the superior pole of the left kidney. Posterior atrophy of the right kidney. No hydronephrosis of either kidney. No ureteral stones. Spleen, adrenal glands, pancreas, gallbladder and liver are unremarkable. No bowel obstruction, pneumoperitoneum, or pneumatosis. There are scattered colonic diverticula, however no evidence of diverticulitis. Skin thickening over the anterior right abdomen. No underlying fluid collection or abscess. No subcutaneous gas. Incidentally noted lateral right abdominal wall lipoma measuring 4.0 x 8.1 cm, unchanged. Small fat containing right inguinal hernia. Infrarenal abdominal aorta measures 2.7 x 2.9 cm. Aorta previously measured 2.9 x 3.0, not significantly changed. There are mild wall calcifications of the abdominal aorta. Pelvic contents unremarkable. Normal appendix. The bones are intact. Mild degenerative changes of the lumbar spine. Small fat containing umbilical hernia. IMPRESSION: 1. Skin thickening over the anterior right abdominal wall, compatible with cellulitis. No underlying abscess. 2. 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 TODAY'S VISIT CROATIAN #Juan She had recent hernia surgery, and developed a cellulitis of the area. She had IV abx and it is improving. She says her cholesterol medication was taken away but she does not know why - investigation of the labs shows she is triple digit transaminases, so this is the likely reason. I will institute an investigation. Her diabetes also has not been controlled, she was seeing endo, but He keeps changing meds and I was doing well on Ozempic but had N/V on Mounjaro so her PCP will now control her diabetes per her report. She also has a cough. Has had CIC lately, eating out a lot. Having rectal pain. Will get labs and US..... Contributing factors could be the IV antibiotics, w orsening diabetes control due to changing medications and we need to rule out any chronic infections like hepatitis AB or C. ROV next avail. [facility] Medical History Severe persistent asthma NIDDY (non-insulin dependent diabetes mellitus in young) COPD (chronic obstructive pulmonary disease) Cellulitis of labia Pulmonary hypertension, pre-operative cardiovascular examination Arthritis Thyroid disease Bilateral renal cysts Right bundle branch block Dental calculus Depression Varicose veins of left lower extremity Ectatic aorta Paresthesia Paresis of one side of face Neck pain Insomnia disorder, with non-sleep disorder mental comorbidity Increased immunoglobulin Constipation Aneurysm of left internal carotid artery Abnormal ultrasound of kidney Type 2 diabetes mellitus History of kidney stones Abnormal finding on ultrasound Tear of medial meniscus of left knee Leg pain Kidney stone on left side MOCK (dyspnea on exertion) Patellofemoral arthritis of left knee Trochanteric bursitis of right hip COVID-19 Carpal tunnel syndrome of right wrist Renal calculi UTI (urinary tract infection) Allergic rhinitis Anxiety and depression Fibromyalgia HTN (hypertension) PTSD (post-traumatic stress disorder) Preop pulmonary/respiratory exam Vertigo Diabetes Asthma Chest pain Tubular adenoma of colon Vulvovaginitis Acute asthma exacerbation Candidiasis of mouth and esophagus Bronchitis Spondylosis of cervical region without myelopathy or radiculopathy Bronchitis COPD exacerbation Yeast infection Papanicolaou smear for cervical cancer screening Bilateral hand pain Bilateral knee pain Low vitamin D level Dry mouth Environmental allergies Non-toxic multinodular goiter Hypothyroidism Type 2 diabetes mellitus with hyperglycemia DVT (deep venous thrombosis) Menopausal state Cocaine abuse Surgical History Encounter for postoperative wound check Status post umbilical hernia repair, follow-up exam Carbuncle and furuncle of buttock Carbuncle of abdominal wall Umbilical hernia Umbilical hernia Hx of carpal tunnel repair History of esophagogastroduodenoscopy (EGD) H/O colonoscopy with polypectomy History of selective injection of anesthetic agent around lumbar nerve root Hx of right breast biopsy History of hysterectomy History of lithotripsy Family History Father No problems noted. 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 Female Reproductive History Menstrual Age of Menarche: 10 Review of Systems Const Denies fatigue, Denies fever(s), Denies night sweats, Denies poor appetite and Denies weight loss ENT Reports Normal hearing present, Denies dental pain, Denies dysphagia, Denies hearing loss, Denies mouth pain, Denies odynophagia, Denies throat swelling, Denies tongue swelling and Reports other (Dentition adequate) Card Reports no additional complaints Resp Reports no additional complaints GI Details: Reports abdominal pain, Denies melena, Denies bloating, Denies hematochezia, Reports constipation, Denies GI cramping, Denies dysphagia, Denies excessive flatus, Denies early satiety, Reports heartburn, Denies diarrhea, Denies nausea, Denies odynophagia, Denies vomiting, Denies hematemesis and Reports other (Rectal pain) Skin/Breast Denies pruritus, Denies lesions, Reports erythema, Denies rash and Denies jaundice Neuro Reports Normal hearing present and Denies Abnormal speech present Psych Reports anxiety Endo Denies fatigue Aller/Immun Denies throat swelling and Denies tongue swelling Physical Exam Vital Signs: Last Vital Signs Pulse 92 06/15/24 13:49 BP 123/83 06/15/24 13:49 BMI result Body Mass Index 32.3 Const General: cooperative, no acute distress, well developed and well groomed Nutritional Appearance: well nourished and obese Orientation/consciousness: oriented to person, oriented to place and oriented to time Limitations: language barrier and other limitations (Educational) HEENT Head: Yes normocephalic and Yes atraumatic Eyes General: appearance normal, both eyes and all related structures Pupils: Equal, round and reactive pupils present Neck Neck: Yes normal visual inspection and Yes no lymphadenopathy Thyroid: Thyroid normal Resp Effort & Inspection: normal respiratory effort and able to speak in complete sentences Auscultation: clear to auscultation bilaterally Cardio Rate: regular rate Rhythm: regular rhythm Heart sounds: Normal, physiologic split S2 sound present Peripheral pulses: radial pulses present and posterior tibial pulses present GI Inspection: No distended, Yes Abdominal panniculus present and Yes obesity Palpation (GI): Soft to palpation, nontender, no guarding, not rigid and No hepatosplenomegaly present Percussion: Yes normal to percussion Auscultation: normal bowel sounds Rectal Exam - Female: deferred Skin General skin exam: no rashes or lesions noted, turgor normal, skin not dry, no jaundice, No spider nevi and no striae Rashes: no rashes Nails: normal Neuro General: oriented to person, oriented to place and oriented to time Cranial nerves: Yes Equal, round and reactive pupils present and Yes Normal hearing present Speech: No Abnormal speech present Extrem General: Yes normal to inspection, No clubbing, No cyanosis and No edema Psych Appearance: grossly normal and well kempt Mental Status: mental status grossly normal Speech and movement: Normal speech and movement present Affect: Anxious affect present Attitude: cooperative Thought process: Circumstantial thought process present and not confabulating Thought content: Normal thought content present Insight: Limited insight present (Psych) Judgement: Limited judgement present (Psych) Results Reviewed Results Reviewed: Laboratory Tests 05/30/24 13:17 WBC 6.0 Hgb 14.6 Hct 42.3 Plt Count 269 Estimated GFR > 60 Total Bilirubin 0.5 AST 197 H ALT 243 H Alkaline Phosphatase [address] abdomen and pelvis with contrast 03/20/2024 Comparison: CT/AZ/SR - CT ABDOMEN WO/W IV CON - 09/05/23 16:27 EDT Findings: No consolidation or effusion. There is a 3 cm cyst within the superior pole of the left kidney. Posterior atrophy of the right kidney. No hydronephrosis of either kidney. No ureteral stones. Spleen, adrenal glands, pancreas, gallbladder and liver are unremarkable. No bowel obstruction, pneumoperitoneum, or pneumatosis. There are scattered colonic diverticula, however no evidence of diverticulitis. Skin thickening over the anterior right abdomen. No underlying fluid collection or abscess. No subcutaneous gas. Incidentally noted lateral right abdominal wall lipoma measuring 4.0 x 8.1 cm, unchanged. Small fat containing right inguinal hernia. Infrarenal abdominal aorta measures 2.7 x 2.9 cm. Aorta previously measured 2.9 x 3.0, not significantly changed. There are mild wall calcifications of the abdominal aorta. Pelvic contents unremarkable. Normal appendix. The bones are intact. Mild degenerative changes of the lumbar spine. Small fat containing umbilical hernia. IMPRESSION: 1. Skin thickening over the anterior right abdominal wall, compatible with cellulitis. No underlying abscess. 2. Borderline aneurysmal infrarenal abdominal aorta measuring 2.7 x 2.9 cm Assessment & Plan Assessment & Plan (1) Transaminitis: Comment: sudden increase over her baseline Code(s): R74.01 - Elevation of levels of liver transaminase levels Category: Medical (2) Uncontrolled type 2 diabetes mellitus with hyperglycemia, with long-term current use of insulin: Code(s): E11.65 - Type 2 diabetes mellitus with hyperglycemia; Z79.4 - FDC (current) use of insulin Category: Medical (3) OKEEFE (nonalcoholic steatohepatitis): Comment: LABS; 07/2011 LIver panel is totally normal, hemoglobin A1c covers around 7, alpha fetoprotein tumor marker at baseline is 1.6, 05/2018 autoimmune workup is negative, ferritin is normal at 49, she is immune to hepatitis a B and negative for hepatitis C. CURRENT LABS 05/30/24 13:17 WBC 6.0 Hgb 14.6 Hct 42.3 Plt Count 269 Estimated GFR > 60 Total Bilirubin 0.5 AST 197 H ALT 243 H Alkaline Phosphatase [address] abdomen and pelvis with contrast 03/20/2024 Comparison: CT/AZ/SR - CT ABDOMEN WO/W IV CON - 09/05/23 16:27 EDT Findings: No consolidation or effusion. There is a 3 cm cyst within the superior pole of the left kidney. Posterior atrophy of the right kidney. No hydronephrosis of either kidney. No ureteral stones. Spleen, adrenal glands, pancreas, gallbladder and liver are unremarkable. No bowel obstruction, pneumoperitoneum, or pneumatosis. There are scattered colonic diverticula, however no evidence of diverticulitis. Skin thickening over the anterior right abdomen. No underlying fluid collection or abscess. No subcutaneous gas. Incidentally noted lateral right abdominal wall lipoma measuring 4.0 x 8.1 cm, unchanged. Small fat containing right inguinal hernia. Infrarenal abdominal aorta measures 2.7 x 2.9 cm. Aorta previously measured 2.9 x 3.0, not significantly changed. There are mild wall calcifications of the abdominal aorta. Pelvic contents unremarkable. Normal appendix. The bones are intact. Mild degenerative changes of the lumbar spine. Small fat containing umbilical hernia. IMPRESSION: 1. Skin thickening over the anterior right abdominal wall, compatible with cellulitis. No underlying abscess. 2. Borderline aneurysmal infrarenal abdominal aorta measuring 2.7 x 2.9 cm Code(s): K75.81 - Nonalcoholic steatohepatitis (OKEEFE) Category: Medical (4) Small bowel motility disorder: Code(s): K59.9 - Functional intestinal disorder, unspecified Category: Medical (5) GERD (gastroesophageal reflux disease): Code(s): K21.9 - Gastro-esophageal reflux disease without esophagitis Category: Medical (6) Chronic idiopathic constipation: Code(s): K59.04 - Chronic idiopathic constipation Category: Medical (7) Abdominal pain: Code(s): R10.9 - Unspecified abdominal pain Category: Medical Plan CROATIAN #Juan She had recent hernia surgery, and developed a cellulitis of the area. She had IV abx and it is improving. She says her cholesterol medication was taken away but she does not know why - investigation of the labs shows she is triple digit transaminases, so this is the likely reason. I will institute an investigation. Her diabetes also has not been controlled, she was seeing endocrinology, but He keeps changing meds and I was doing well on Ozempic but had N/V on Mounjaro so her PCP will now control her diabetes per her report. She also has a cough. Has had CIC lately, eating out a lot. Having rectal pain. Will get labs and US..... Contributing factors could be the IV antibiotics (she was treated with vancomycin), worsening diabetes control due to changing medications and we need to rule out any chronic infections like hepatitis AB or C. ROV next avail. 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 Monotest Today E11.65 - Type 2 diabetes mellitus with hyperglycemia, R10.9 - Unspecified abdominal pain, R74.01 - Elevation of levels of liver transaminase levels, Z79.4 - FDC (current) use of insulin Hemoglobin A1c Today E11.65 - Type 2 diabetes mellitus with hyperglycemia, R10.9 - Unspecified abdominal pain, R74.01 - Elevation of levels of liver transaminase levels, Z79.4 - FDC (current) use of insulin REX Reflex Titer and Pattern Today E11.65 - Type 2 diabetes mellitus with hyperglycemia, R10.9 - Unspecified abdominal pain, R74.01 - Elevation of levels of liver transaminase levels, Z79.4 - FDC (current) use of insulin Lipase Today E11.65 - Type 2 diabetes mellitus with hyperglycemia, R10.9 - Unspecified abdominal pain, R74.01 - Elevation of levels of liver transaminase levels, Z79.4 - FDC (current) use of insulin CRP High Sensitivity Today R10.9 - Unspecified abdominal pain, R74.01 - Elevation of levels of liver transaminase levels US abdomen complete Today R10.9 - Unspecified abdominal pain, R74.01 - Elevation of levels of liver transaminase levels Liver Panel Today E11.65 - Type 2 diabetes mellitus with hyperglycemia, R10.9 - Unspecified abdominal pain, R74.01 - Elevation of levels of liver transaminase levels, 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 Alpha Fetoprotein Today E11.65 - Type 2 diabetes mellitus with hyperglycemia, R10.9 - Unspecified abdominal pain, R74.01 - Elevation of levels of liver transaminase levels, Z79.4 - FDC (current) use of insulin Hepatitis A,B,C Profile Today E11.65 - Type 2 diabetes mellitus with hyperglycemia, R10.9 - Unspecified abdominal pain, R74.01 - Elevation of levels of liver transaminase levels, Z79.4 - FDC (current) use of insulin HIV Ab/Ag Today E11.65 - Type 2 diabetes mellitus with hyperglycemia, R10.9 - Unspecified abdominal pain, R74.01 - Elevation of levels of liver transaminase levels, Z79.4 - FDC (current) use of insulin Ferritin Today E11.65 - Type 2 diabetes mellitus with hyperglycemia, R10.9 - Unspecified abdominal pain, R74.01 - Elevation of levels of liver transaminase levels, Z79.4 - FDC (current) use of insulin Amylase Today E11.65 - Type 2 diabetes mellitus with hyperglycemia, R10.9 - U nspecified abdominal pain, R74.01 - Elevation of levels of liver transaminase levels, 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 1 appl [place] BID 30 grams 6RF hemorrhoids K64.9 - Unspecified hemorrhoids Lactobacillus rhamnosus GG (Culturelle) 1 cap PO DAILY 30 caps 12RF Refilled omeprazole 20 mg PO BID 60 caps 6RF metoclopramide HCl 5 mg PO TID 90 tabs 6RF K59.9 - Functional intestinal disorder, unspecified sennosides (senna) 17.2 mg (2 x 8.6 mg) PO BEDTIME 60 tabs 6RF for constipation Coding Level of Care Code Est Pt Level 4 (20049) Diagnoses Transaminitis R74.01 Uncontrolled type 2 diabetes mellitus with hyperglycemia, with long-term current use of insulin E11.65; Z79.4 OKEEFE (nonalcoholic steatohepatitis) K75.81 Small bowel motility disorder K59.9 GERD (gastroesophageal reflux disease) K21.9 Chronic idiopathic constipation K59.04 Abdominal pain R10.9 Time Spent (min) 39
[2024-06-15 13:49] VITALS: BP 123/83; PULSE 92; BMI 32.3
--- OUTSIDE RECORDS SUMMARY | 2024-06-15 15:45 | XMS_ITS | Clinical Summary ---
Author Organization [address] [facility] Address [address] [place] [address] Phone Care Team Providers Care Document Photographer Name Role Phone Sariah Vickers NP Primary Care Provider [phone] Social History Tobacco Use Types Packs/Day Years [...] age to complete this topic Care Teams Document Photographer Relationship Specialty Start Date End Date Sariah Vickers NP [address] [place] [id number] PCP - General 12/03/23
--- OUTSIDE RECORDS SUMMARY | 2024-06-15 15:45 | XMS_ITS | Data Portability ---
Author Organization [email or web address] [place] [employer] Address [address] [place] [phone] Care Team Providers Care Paper Reeler Name Role Phone HIM CCA OTHER Assessment [...] Name and Address Organization Details Recorded Time 98142 aspirin medicatio n Not available Not available Not available 05/29/2024 1191 RxNorm Not Available InstEDNow - production 13:30:18 32699 naproxen medicatio n Not available Not available [...] Not Available Not Available No t Available [facility] 10 billion cell-200 [...] Available No t Available FreeStyle Jalil 2 [place] USE DIRECTED TO TEST BLOOD SUGAR EVERY [...] SNOMED-CT Code Diagnosis ICD10 Code Diagnosis Note [id number] Kathy Gonzalez MD Main - [address] [address] 05/29/2024 16:18:16 05/30/2024 23:53:07 Wound finding [id number] Z51.89 Evaluation in the field was performed by my freelance displayer colleague, as noted above, I provided real-time [...] Laws Member ID Guarantor Name 05/29/2024 1 [facility] - DOS ON OR AFTER 2022 - DUAL ELIGIBLE - CORRECTION OPTIONS AND ONE CARE (MEDICARE REPLACEMENT/ADV ANTAGE - HMO) Nuvia Da Silva [id number] Nuvia Da Silva Notes Date Note Type Note Provider Name and Address Organization Details Recorded Time 05/29/2024 text/html CRC Nurse Triage Notes (Tania Kan): Reason For Request: wound care after surgery Chief Complaints: Wound Care PMH: Diabetes Mellitus Type 2, Hyperlipidemia, Hypertension, Kidney Stones, Hysterectomy, Hypothyroidism, Asthma PMH Reviewed at 05/29/2024 - :30 Allergies Reviewed at 05/29/2024:30 Comments: Referral taken via Hotel Reservation Agent, patient calling in to place a referral. [...] .................. .................. .................. .................. .................. .................. ............... Melt House Drag Operator Note From Albert Murphy: Arrived to find patient ambulating in her apartment. Patient AOX4, GCS 15, skin pink warm and dry. Patient Greenlandic speaking only. Industrial Furnace Fabricator line used. Patient had hernia surgery on and is wondering if the steri strips are suppose to remain or if she needs to remove them. Educated patient that they stay and will fall off on their own. VS as noted. [facility] came on and was able to interact with patient. answered all questions for pt. Patient reassured. Red flags went over with pt. Patient denies any cp, sob, fevers. Incision looks clean and intact. .................. .................. .................. .................. .................. .................. .................. ............... [facility] Consulted: Kathy Gonzalez .................. .................. .................. .................. .................. .................. .................. ............... Disposition: Fulfilled Kathy Gonzalez MD [address] [facility],[address], [place], [address], [employer] STACK 05/29/2024 16:25:31 OBGyn Episode No OBEpisode recorded.
== END 2024-06-15 14:41 | disposition home or self-care (01) ==
LOC: HO.HGI 13:41
PROVIDERS: PCP Nurse Practitioner Primary Care; Visit Provider Nurse Practitioner
DX: R74.01 Elevation of levels of liver transaminase levels (principal); E11.65 Type 2 diabetes mellitus with hyperglycemia; Z79.4 Long term (current) use of insulin; K75.81 Nonalcoholic steatohepatitis (NASH); K59.9 Functional intestinal disorder, unspecified; K21.9 Gastro-esophageal reflux disease without esophagitis; K59.04 Chronic idiopathic constipation; R10.9 Unspecified abdominal pain
CPT/HCPCS: 99214

== ENCOUNTER 2024-06-15 13:40 | Outpatient (REF) | payer OTHER, SELFPAY ==
[2024-06-15 15:28] LABS: Estimated Average Glucose 143 mg/dL; Hemoglobin A1C 183.7882 umol/L; Hemoglobin A1c % 6.6 % (<6.0); Total Hemoglobin (HGBA1C) 3777.6682 umol/L
[2024-06-15 15:48] LABS: Monotest Negative (Negative)
[2024-06-15 15:52] LABS: Alanine Aminotransferase 97 U/L (0-31); Aspartate Amino Transferase 70 U/L (5-31); Bilirubin Direct 0.2 mg/dL (0.0-0.5); Bilirubin Total 0.4 mg/dL (0.0-1.0); Lipase 20 U/L (8-78); Total Protein 8.1 g/dL (6.5-8.0)
[2024-06-15 16:08] LABS: Alkaline Phosphatase 123 U/L (39-117); Amylase 45 U/L (28-100)
[2024-06-15 16:13] LABS: Ferritin 159 ng/mL (10-250)
[2024-06-16 08:32] LABS: HBS Num1 444.55 mIU/mL (0-7.99); HBc Num1 0.12 S/CO (0.00-0.79); HBsAGNum1 0.46 S/CO (0.00-0.99); HIV AB/AG Nonreactive (Nonreactive); HIV Num 1 0.06 S/CO (0.00-0.99); Hepatitis B Core Antibody Nonreactive (Nonreactive); Hepatitis B Surface Antigen Negative (Negative); ~HepC Num1 0.13 S/CO (0.00-0.79); ~Hepatitis B Surface Antibody REACTIVE (Nonreactive); ~Hepatitis C Antibody Nonreactive (Nonreactive)
[2024-06-16 12:18] LABS: Alpha Fetoprotein 3.6 ng/mL
[2024-06-17 08:22] LABS: Hepatitis A Antibody IgM 0.19 Index (0-0.79); ~Hepatitis A Antibody IgM Nonreactive (Nonreactive)
[2024-06-17 12:29] LABS: Anti Nuclear Antibody Pattern Nuclear, Homogeneous; Anti Nuclear Antibody Screen POSITIVE (NEGATIVE)
[2024-06-17 14:23] LABS: Mitochondrial Antibodies NEGATIVE (NEGATIVE)
[2024-06-17 23:18] LABS: Smooth Muscle Antibody 69 U (<20)
[2024-06-18 17:28] LABS: CRP High Sensitivity 3.7 mg/L
== END 2024-06-15 13:41 | disposition home or self-care (01) ==
LOC: HO.LAB 13:40
PROVIDERS: PCP Nurse Practitioner Primary Care; Visit Provider Nurse Practitioner
DX: R74.01 Elevation of levels of liver transaminase levels (principal); E11.65 Type 2 diabetes mellitus with hyperglycemia; Z79.4 Long term (current) use of insulin; R10.9 Unspecified abdominal pain; K75.81 Nonalcoholic steatohepatitis (NASH); K59.9 Functional intestinal disorder, unspecified; K21.9 Gastro-esophageal reflux disease without esophagitis; K59.04 Chronic idiopathic constipation
CPT/HCPCS: 36415; 80076; 82105; 82150; 82728; 83036; 83690; 86015; 86038; 86039; 86141; 86308; 86381; 86704; 86706; 86709; 86803; 87340; 87389; 99212

== ENCOUNTER 2024-06-18 10:15 | Outpatient (REF) | payer OTHER, SELFPAY ==
--- OUTSIDE RECORDS SUMMARY | 2024-06-18 11:18 | XMS_ITS | Clinical Summary ---
Author Organization [address] [facility] Address [address] [place] [address] Phone Care Team Providers Care Baseball Coach Name Role Phone Sariah Vickers NP Primary Care Provider [phone] Social History Tobacco Use Types Packs/Day Years [...] age to complete this topic Care Teams Baseball Coach Relationship Specialty Start Date End Date Sariah Vickers NP [address] [place] [phone] PCP - General 12/03/23
--- OUTSIDE RECORDS SUMMARY | 2024-06-18 11:18 | XMS_ITS | Data Portability ---
Author Organization [employer] Address [address] [place] [phone] Care Team Providers Care Insole Reinforcer Name Role Phone HIM CCA OTHER Assessment [...] Name and Address Organization Details Recorded Time 05779 aspirin medicatio n Not available Not available Not available 05/29/2024 1191 RxNorm Not Available [facility] - production 13:30:18 60067 naproxen medicatio n Not available Not available [...] Not Available Not Available No t Available [facility] 10 billion cell-200 mg sprinkle [...] Available No t Available FreeStyle Jalil 2 [place] USE DIRECTED TO TEST BLOOD SUGAR EVERY [...] SNOMED-CT Code Diagnosis ICD10 Code Diagnosis Note [id number] Kathy Gonzalez MD Main - [address] [address] 05/29/2024 16:18:16 05/30/2024 23:53:07 Wound finding [id number] Z51.89 Evaluation in the field was performed by my rn diabetes colleague, as noted above, I provided real-time [...] ID Guarantor Name 05/29/2024 1 [facility] - DOS ON OR AFTER 2022 - DUAL ELIGIBLE - CORRECTION OPTIONS AND ONE CARE (MEDICARE REPLACEMENT/ADV ANTAGE - HMO) Nuvia Da Silva [id number] Nuvia Da Silva Notes Date Note Type Note Provider Name and Address Organization Details Recorded Time 05/29/2024 text/html CRC Nurse Triage Notes (Tania Kan): Reason For Request: wound care after surgery Chief Complaints: Wound Care PMH: Diabetes Mellitus Type 2, Hyperlipidemia, Hypertension, Kidney Stones, Hysterectomy, Hypothyroidism, Asthma PMH Reviewed at 05/29/2024 - :30 Allergies Reviewed at 05/29/2024:30 Comments: Referral taken via Regulatory Affairs Specialist, patient calling in to place a referral. [...] .................. .................. .................. .................. .................. .................. ............... Restaurant Crew Person Note From Albert Murphy: Arrived to find patient ambulating in her apartment. Patient AOX4, GCS 15, skin pink warm and dry. Patient Divehi speaking only. Golf Starter And Ranger line used. Patient had hernia surgery on and is wondering if the steri strips are suppose to remain or if she needs to remove them. Educated patient that they stay and will fall off on their own. VS as noted. [facility] came on and was able to interact with patient. answered all questions for pt. Patient reassured. Red flags went over with pt. Patient denies any cp, sob, fevers. Incision looks clean and intact. .................. .................. .................. .................. .................. .................. .................. ............... [facility] Consulted: Kathy Gonzalez .................. .................. .................. .................. .................. .................. .................. ............... Disposition: Fulfilled Kathy Gonzalez MD [address] [facility],[address], [place], [address], [employer] STACK 05/29/2024 16:25:31 OBGyn Episode No OBEpisode recorded.
[2024-06-18 12:06] LABS: Alanine Aminotransferase 72 U/L (0-31); Albumin Level 3.9 g/dL (3.5-5.0); Alkaline Phosphatase 122 U/L (39-117); Aspartate Amino Transferase 61 U/L (5-31); Bilirubin Direct 0.2 mg/dL (0.0-0.5); Bilirubin Total 0.4 mg/dL (0.0-1.0); Cholesterol 216 mg/dL (<200); HDL Cholesterol 64 mg/dL (>40); LDL Cholesterol Calculated 128 mg/dL (<100); Total Protein 7.9 g/dL (6.5-8.0); Triglycerides 122 mg/dL (<150)
== END 2024-06-18 10:16 | disposition home or self-care (01) ==
LOC: HO.HHCL 10:15
PROVIDERS: Visit Provider Nurse Practitioner Primary Care
DX: E11.69 Type 2 diabetes mellitus with other specified complication (principal); E78.5 Hyperlipidemia, unspecified; K75.81 Nonalcoholic steatohepatitis (NASH)
CPT/HCPCS: 36415; 80061; 80076

== ENCOUNTER 2024-07-05 10:59 | Outpatient (AMB) | payer OTHER, SELFPAY ==
--- NOTE | 2024-07-05 11:01 | MHC.OFFVIS ---
Intake Visit Reasons: 9M follow up/ US(set) Intake Note: Pt presents to the office today for a 9 month follow up/US. Urology Meds: None Wound Care Technician Services: Wound Care Technician Present Wound Care Technician Name: Ridge Merritt Allergies Fish Containing Products Allergy (Intermediate, Verified 07/05/24 11:22) Swelling vancomycin Allergy (Intermediate, Verified 07/05/24 11:22) Rash aspirin [Aspirin] Allergy (Mild, Verified 07/05/24 11:22) ITCHY THROAT azithromycin Allergy (Unknown, Verified 07/05/24 11:22) Unknown naproxen Allergy (Unknown, Verified 07/05/24 11:22) Unknown simvastatin Allergy (Unknown, Verified 07/05/24 11:22) Unknown onion [ONION] Adverse Reaction (Mild, Verified 07/05/24 11:22) RED FACE Medication List - Last Reconciled 07/05/24 by NOÉ Duong acetaminophen 650 mg PO Q6H PRN albuterol sulfate 90 mcg/actuation (Ventolin HFA) 2 puffs inhalation Q4-6H PRN amlodipine 10 mg PO BEDTIME blood sugar diagnostic (FreeStyle Lite Strips) TEST BLOOD SUGAR FOUR TIMES DAILY blood-glucose meter (AppographyStyle Flash System kit) As directed blood-glucose sensor (FreeStyle Jalil 3 Plus Sensor device) Use daily As directed to monitor glucose blood-glucose,drying machine receiver,cont (FreeStyle Jalil 3 [place]) Use daily As directed to monitor blood glucose buspirone 10 mg PO TID cetirizine 10 mg PO QPM clonazepam 0.5 mg PO BEDTIME PRN clonazepam (Klonopin) 1 mg PO DAILY docusate sodium (Stool Softener) 100 mg PO BID enalapril maleate 20 mg PO DAILY flash glucose scanning reader (FreeStyle Jalil 2 [place]) As directed fluticasone propion-salmeterol 250-50 mcg/dose 1 ea inhalation BID fluticasone propionate 50 mcg/actuation 2 sprays intranasal QAM gabapentin 400 mg PO BEDTIME hydrocortisone 2.5% (Proctosol HC) 1 appl OH BID insulin lispro (Humalog KwikPen (U-100) Insulin) 4 units subcut TID PRN ipratropium-albuterol 0.5 mg-3 mg(2.5 mg base)/3 mL 3 mL inhalation Q6H PRN ipratropium-albuterol 20-100 mcg/actuation (Combivent Respimat) 1 puff inhalation BID PRN MDD 6 puffs per day Lactobac. rhamnosus GG-inulin 10 billion cell -200 mg ([employer]) 1 cap PO DAILY Lactobacillus rhamnosus GG (Donald Danforth Plant Science Centerlle) 1 cap PO DAILY lancets (TRUEplus Lancets) TEST BLOOD SUGAR FOUR TIMES DAILY leg brace (Knee Support Brace) As directed levothyroxine 75 mcg PO QAM lidocaine 5% 1 patch topical DAILY PRN meclizine 25 mg PO TID PRN metoclopramide HCl 5 mg PO TID montelukast 10 mg PO BEDTIME sswitjdtjeay-kfme-phsme acid 18-400 mg-mcg (Certavite-Antioxidant) 1 tab PO DAILY omalizumab 300 mg subcut Q2W 28 days omeprazole 20 mg PO BID pen needle, diabetic (UltiCare Pen Needle) USE FOUR TIMES DAILY plecanatide (Trulance) 3 mg PO BEDTIME potassium chloride ER 20 mEq PO BID risperidone 0.5 mg PO BID semaglutide (Ozempic) 0.5 mg (0.736 mL) subcut SA sennosides (senna) 17.2 mg (2 x 8.6 mg) PO BEDTIME tiotropium bromide (Spiriva with HandiHaler) 1 cap inhalation DAILY tramadol 50 mg PO Q12H PRN zolpidem 10 mg PO BEDTIME PRN HPI Comments Details: Nuvia is a pleasant 63-year-old Prydeinig-speaking female patient of Dr. Vickers. She has a past medical history of severe persistent asthma, COPD, pulmonary hypertension, arthritis, thyroid disease, bilateral renal cysts, right bundle branch block, depression, varicose veins of left lower extremity, insomnia, constipation, type 2 diabetes, nephrolithiasis, carpal tunnel syndrome, allergic rhinitis, fibromyalgia, anxiety, depression, PTSD, vertigo, and bronchitis. She is being followed up on today via telehealth for her history of nephrolithiasis was well as renal cysts. In discussion with the patient today she denies having had any bothersome urinary issues or concerns since her last office visit here approximately 9 months ago. Recent renal imaging results were reviewed with the patient today. 06/11 bilateral kidneys are normal in size and echotexture. No hydronephrosis or renal calculi noted bilaterally. Simple exophytic cyst of the upper pole measuring 3.8 cm previously measuring 3.[address] Six-month follow-up ultrasound is recommended per radiology report. When asked she currently denies any bothersome urinary issues. She denies urinary urgency, urinary frequency, incontinence, nocturia, hematuria, dysuria, foul smelling urine, changes to urinary stream, flank pain, fever, and or chills. She is happy with her current voiding parameters. We discussed continuation of surveillance monitoring of nephrolithiasis as well as renal cysts. She otherwise offers no other issues or concerns at this time. [facility] Medical History Severe persistent asthma NIDDY (non-insulin dependent diabetes mellitus in young) COPD (chronic obstructive pulmonary disease) Cellulitis of labia Pulmonary hypertension, pre-operative cardiovascular examination Arthritis Thyroid disease Bilateral renal cysts Right bundle branch block Dental calculus Depression Varicose veins of left lower extremity Ectatic aorta Paresthesia Paresis of one side of face Neck pain Insomnia disorder, with non-sleep disorder mental comorbidity Increased immunoglobulin Constipation Aneurysm of left internal carotid artery Abnormal ultrasound of kidney Type 2 diabetes mellitus History of kidney stones Abnormal finding on ultrasound Tear of medial meniscus of left knee Leg pain Kidney stone on left side MOCK (dyspnea on exertion) Patellofemoral arthritis of left knee Trochanteric bursitis of right hip COVID-19 Carpal tunnel syndrome of right wrist Renal calculi UTI (urinary tract infection) Allergic rhinitis Anxiety and depression Fibromyalgia HTN (hypertension) PTSD (post-traumatic stress disorder) Preop pulmonary/respiratory exam Vertigo Diabetes Asthma Chest pain Tubular adenoma of colon Vulvovaginitis Acute asthma exacerbation Candidiasis of mouth and esophagus Bronchitis Spondylosis of cervical region without myelopathy or radiculopathy Bronchitis COPD exacerbation Yeast infection Papanicolaou smear for cervical cancer screening Bilateral hand pain Bilateral knee pain Low vitamin D level Dry mouth Environmental allergies Non-toxic multinodular goiter Hypothyroidism Type 2 diabetes mellitus with hyperglycemia DVT (deep venous thrombosis) Menopausal state Cocaine abuse Surgical History Encounter for postoperative wound check Status post umbilical hernia repair, follow-up exam Carbuncle and furuncle of buttock Carbuncle of abdominal wall Umbilical hernia Umbilical hernia Hx of carpal tunnel repair History of esophagogastroduodenoscopy (EGD) H/O colonoscopy with polypectomy History of selective injection of anesthetic agent around lumbar nerve root Hx of right breast biopsy History of hysterectomy History of lithotripsy Family History Father No problems noted. 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 Female Reproductive History Menstrual Age of Menarche: 10 Review of Systems Eyes Reports no additional complaints ENT Reports no additional complaints Card Reports as per HPI Resp Reports as per HPI GI Reports no additional complaints Reports as per HPI Musc Reports as per HPI Neuro Reports as per HPI Psych Reports as per HPI Endo Reports as per HPI Physical Exam Const General: cooperative Orientation/consciousness: patient oriented x3 Resp Effort & Inspection: able to speak in complete sentences Neuro General: patient oriented x3 Psych Speech and movement: Clear speech present Attitude: cooperative Thought content: Normal thought content present Insight: Fair insight present (Psych) Judgement: Fair judgement present (Psych) Telehealth Telehealth Telehealth Platform: Telephone Location of provider rendering services: practice address Location of patient: address on file Patient Identification confirmed using: Name, : Yes Telehealth method: voice only Patient verbally consented to treatment: Yes Patient verbally consented to billing insurance company: Yes Patient informed of any privacy concerns related to visit: Yes Minutes spent on Phone/Video with Pt.: 15 Results Reviewed Results Reviewed: Date of Service: 05/26/24 Procedure(s): US renal BI Findings: Right kidney normal size and echotexture, 11.4 cm length. No hydronephrosis calculus or mass. Normal color flow. Stable renal cortical defect upper pole Left kidney normal size and echotexture, 11.1 cm length. No hydronephrosis calculus or mass. Normal color flow. Simple exophytic cyst upper pole measuring 3.8 x 3.8 x 3.7 cm previously measuring 3.7 x [address] Impression: 1. No nephrolithiasis or hydronephrosis. Anechoic cyst upper pole left kidney described on recent CT. This was not described on previous abdominal or renal ultrasound probably obscured. Six-month follow-up renal ultrasound is recommended Assessment & Plan Assessment & Plan (1) Nephrolithiasis: Code(s): N20.0 - Calculus of kidney Category: Medical (2) Renal cyst: Code(s): N28.1 - Cyst of kidney, acquired Category: Medical Plan Recent renal imaging results reviewed with the patient today; as noted above. Will continue with surveillance monitoring. She currently denies any bothersome urinary issues or concerns. She reports be happy with current voiding parameters. Discussed, educated, and stressed the importance of adequate hydration relation to nephrolithiasis as well as overall health and well-being. Continue adding 1 oz of lemon juice to water daily. Will obtain renal ultrasound in 6 months. Follow-up in 6 months with imaging to be completed prior; or sooner with any issues, concerns, and or questions. Orders: Orders US renal BI 6 Months N20.0 - Calculus of kidney Patient Instructions: The patient had an opportunity to ask questions regarding the treatment plan. All questions were answered. Physical exam, labs, and imaging were discussed and reviewed in detail. As well as risks, benefits, and discussion of treatment choices. No major barriers to understanding were identified. The patient expressed understanding and agreement with the above treatment plan. The patient was made aware they should contact our office by phone for worsening of their current condition, the appearance of new symptoms, or with any questions or concerns. Compliance is encouraged with any medications and follow up testing that is ordered. It is a privilege to be allowed the opportunity to participate in? your urological care.? Again, if you have any questions or concerns If you have any questions or concerns please do not hesitate to contact me. The office is [phone]. This note is constructed using voice recognition software. While every effort has been made to ensure accuracy hotel yardperson errors may have been included. Yours sincerely, NOÉ Duong Coding Level of Care Code Tele Est Pt Level 3 (71586) Diagnoses Nephrolithiasis N20.0 Renal cyst N28.1
--- OUTSIDE RECORDS SUMMARY | 2024-07-05 11:44 | XMS_ITS | Encounter Summary ---
Author Organization [employer] Address [address] [facility] [address] [place] [address] Care Team Providers Care Corridor Redevelopment Manager Name Role Phone Sariah Vickers Primary Care Provider [phone] Yuri Pierre PharmD Unavailable [phone] Basilio Hall MD Unavailable [phone] Ron Preciado MD Unavailable [phone] Reason for Visit * Reason Comments Med Refill Encounter Details Date Type Department Care Team (Late st Contact Info) Description 11/14/2023 Refill [facility] [address] [place] [address] Sariah Vickers ANP [address] [place] [address] Neck pain Social History Tobacco Use Types [...] Care Team (Late st Contact Info) Description 07/15/2024 1:00 PM EDT Office Visit [facility] [address] [place] [phone] Sariah Vickers, ANP [address] [place] [address] 07/16/2024 3:00 PM EDT Office Visit [facility] [address] [place] [phone] Yogesh Gomez, DMD [address] [place] [address] 08/04/2024 10:00 AM EDT Medication Management [facility] [address] [place] [phone] Yuri Pierre, PharmD [address] [place] [address] 08/04/2024 1:00 PM EDT Office Visit [facility] [address] [place] [phone] Nuvia Duarte [address] [place] [address] 09/03/2024 2:00 PM EDT Office Visit [facility] [address] [place] [address] Hallie Tapia MD [address] [place] [address] 09/27/2024 2:00 PM EDT Office Visit [facility] [address] [place] [address] Luisa Martinez, OD [address] [place] [address] 10/01/2024 11:00 AM EDT Clinical Support [facility] [address] [place] [address] Azeb Hall RN [address] [place] [address] documented as of this encounter Goals Goal Patient Goal Type Associated Problems Recent Progress Patient-Stated? Author Blood Pressure < 140/90 Blood Pressure 142/80(2024 11:35 AM EDT) No Phanis-Gambl Aida urbina, PharmD Record Your Blood Sugar As Directed General No Phanis-Gambl Aida urbina, PharmD Hemoglobin A1c < 7 Result Component 6.6( 3:08 PM EDT) No Phanis-Gambl Aida urbina, PharmD documented as of this encounter Visit Diagnoses Diagnosis Neck pain Cervicalgia documented in this encounter Additional Health Concerns Assessment Noted Time PHQ-9 Depression Total Score: 12 024 2:58 PM EDT documented as of this encounter Care Teams Corridor Redevelopment Manager Relationship Specialty Start Date End Date Sariah Vickers ANP [address] [place] [id number] PCP - General Family Medicine 09/23/19 Yuri Pierre, MikeD [address] [place] [phone] Pharmacist Internal Medicine 05/05/24 Basilio Hall MD [address] [place] [address] Cardiology 05/17/24 Ron Preciado MD [address] [place] [phone] Pulmonary Disease 05/17/24 documented as of this encounter
--- OUTSIDE RECORDS SUMMARY | 2024-07-05 11:44 | XMS_ITS | Encounter Summary ---
Author Organization [employer] Address 75 [facility] 7t [place] [address] Care Team Providers Care Geography Faculty Member Name Role Phone Sariah Vickers Primary Care Provider [phone] Yuri Pierre PharmD Unavailable [phone] Basilio Hall MD Unavailable [phone] Ron Preciado MD Unavailable [phone] Reason for Visit * Reason Onset Date Comments Med Refill 02/04/2024 Encounter Details Date Type Department Care Team (Late st Contact Info) Description 02/04/2024 Telephone [facility] MEDICINE 230 [place] [address] Sariah Vickers ANP 230 [place], [place] [phone] Med Refill Social History Tobacco Use Types [...] 50 MG tablet To be sent to: [facility] - [place], [place] - [address] [place] [address] documented in this encounter Plan of Treatment Upcoming Encounters Date Type Department Care Team ([facility] st Contact Info) Description 07/15/2024 1:00 PM EDT Office Visit [facility] MEDICINE [address] [place] [address] Sariah Vickers ANP 230 [place] [address] 07/16/2024 3:00 PM EDT Office Visit [facility] ADULT DENTAL 230 [place] [address] Yogesh Gomez, DMD 230 [place] [address] 08/04/2024 10:00 AM EDT Medication Management [facility] MEDICINE [address] [place] [address] Yuri Pierre, MikeD 230 [place] [address] 08/04/2024 1:00 PM EDT Office Visit [facility] ADULT DENTAL 230 [place] [address] Nuvia Duarte 230 [place] [address] 09/03/2024 2:00 PM EDT Office Visit [facility] MEDICINE 230 [place] [address] Hallie Tapia MD 230 [place] [address] 09/27/2024 2:00 PM EDT Office Visit [facility] OPTOMETRY [address] [place] [address] Luisa Martinez, OD 230 [place] [address] 10/01/2024 11:00 AM EDT Clinical Support [facility] MEDICINE 230 [place] [address] Azeb Hall, MARTIN [address] [place] [address] documented as of this encounter Goals Goal Patient Goal Type Associated Problems Recent Progress Patient-Stated? Author Blood Pressure < 140/90 Blood Pressure 142/80(2024 11:35 AM EDT) No Piers-Gambl e, Aida, PharmD Record Your Blood Sugar As Directed General No Piers-Gambl e, Aida, PharmD Hemoglobin A1c < 7 Result Component 6.6( 3:08 PM EDT) No Piers-Gambl e, Aida, PharmD documented as of this encounter Visit Diagnoses Not on filedocumented in this encounter Additional Health Concerns Assessment Noted Time PHQ-9 Depression Total Score: 12 024 2:58 PM EDT documented as of this encounter Care Teams Geography Faculty Member Relationship Specialty Start Date End Date Sariah Vickers ANP 230 [place] [address] PCP - General Family Medicine 09/23/19 Yuri Pierre, MikeD 230 [place] [address] Pharmacist Internal Medicine 05/05/24 Basilio Hall MD [address] [place] [address] [phone] Cardiology 05/17/24 Ron Preciado MD [address] [place] [address] [phone] Pulmonary Disease 05/17/24 documented as of this encounter
--- OUTSIDE RECORDS SUMMARY | 2024-07-05 11:44 | XMS_ITS | Encounter Summary ---
Author Organization [employer] Address 75 [facility] 7t [place] [address] Care Team Providers Care Book Binder Name Role Phone Sariah Vickers Primary Care Provider [phone] Yuri Pierre PharmD Unavailable [phone] Basilio Hall MD Unavailable [phone] Ron Preciado MD Unavailable [phone] Reason for Visit * Reason Comments Med Refill Encounter Details Date Type Department Care Team (Late st Contact Info) Description 10/24/2023 Refill [facility] MEDICINE [address] [place] [address] Sariah Vickers ANP 230 [place] [address] Neck pain Social History Tobacco Use Types [...] Description 07/15/2024 1:00 PM EDT Office Visit [facility] MEDICINE [address] [place] [address] Sariah Vickers, ANP 230 [place] [address] 07/16/2024 3:00 PM EDT Office Visit [facility] ADULT DENTAL [address] [place] [address] Yogesh Gomez, DMD 230 [place] [address] 08/04/2024 10:00 AM EDT Medication Management [facility] MEDICINE [address] [place] [address] Yuri Pierre, PharmD 230 [place] [address] 08/04/2024 1:00 PM EDT Office Visit [facility] ADULT DENTAL [address] [place] [address] Nuvia Duarte 230 [place] [address] 09/03/2024 2:00 PM EDT Office Visit [facility] MEDICINE [address] [place] [address] Hallie Tapia MD 230 [place] [address] 09/27/2024 2:00 PM EDT Office Visit [facility] OPTOMETRY [address] [place] [address] Luisa Martinez, OD 230 [place] [address] 10/01/2024 11:00 AM EDT Clinical Support [facility] MEDICINE [address] [place] [address] Azeb Hall RN 505 [place] [address] documented as of this encounter Goals Goal [...] documented as of this encounter Care Teams Book Binder Relationship Specialty Start Date End Date Sariah Vickers ANP [address] [place] [address] PCP - General Family Medicine 09/23/19 Yuri Pierre, MikeD [address] [place] [address] Pharmacist Internal Medicine 05/05/24 Basilio Hall MD [address] [place] [address] Cardiology 05/17/24 Ron Preciado MD [address] [place] [address] Pulmonary Disease 05/17/24 documented as of this encounter
--- OUTSIDE RECORDS SUMMARY | 2024-07-05 11:44 | XMS_ITS | Encounter Summary ---
Author Organization [employer] Address 75 [facility] 7t [place] [address] Care Team Providers Care Chainstitch Elastic Attacher Name Role Phone Sariah Vickers Primary Care Provider [phone] Yuri Pierre PharmD Unavailable [phone] Basilio Hall MD Unavailable [phone] Ron Preciado MD Unavailable [phone] Encounter Details Date Type Department Care Team (Latest Contact Info) Description 04/14/2020 Abstract [facility] CONVERSIONS Dental, Provider, DDS Social History Tobacco [...] Description 07/15/2024 1:00 PM EDT Office Visit [facility] MEDICINE 230 [place] [address] Sariah Vickers ANP 230 [place] [address] 07/16/2024 3:00 PM EDT Office Visit [facility] ADULT DENTAL 230 [place] [address] Yogesh Gomez, JOHN 230 [place] [address] 08/04/2024 10:00 AM EDT Medication Management [facility] MEDICINE [address] [place] [address] Yuri Pierre, PharmD 230 [place] [address] 08/04/2024 1:00 PM EDT Office Visit [facility] ADULT DENTAL 230 [place] [address] Brendan Duartearis 230 [place] [address] 09/03/2024 2:00 PM EDT Office Visit [facility] MEDICINE [address] [place] [address] Hallie Tapia MD 230 [place] [address] 09/27/2024 2:00 PM EDT Office Visit [facility] OPTOMETRY [address] [place] [address] Luisa Martinez, SANDHYA 230 [place] [address] 10/01/2024 11:00 AM EDT Clinical Support [address] [address] Azeb Hall, RN 505 [place] [address] documented as of this encounter Visit Diagnoses Not on filedocumented in this encounter Care Teams Chainstitch Elastic Attacher Relationship Specialty Start Date End Date Sariah Vickers ANP [address] [place] [address] PCP - General Family Medicine 09/23/19 Yuri Pierre, PharmD [address] [place] [address] Pharmacist Internal Medicine 05/05/24 Basilio Hall MD [address] [place] [address] Cardiology 05/17/24 Ron Preciado MD [address] [place] [address] Pulmonary Disease 05/17/24 documented as of this encounter
--- OUTSIDE RECORDS SUMMARY | 2024-07-05 11:44 | XMS_ITS | Encounter Summary ---
Author Organization [employer] Address 75 [facility] 7t [place] [address] Care Team Providers Care Dry Food Products Mixer Name Role Phone Sariah Vickers Primary Care Provider [phone] Yuri Pierre PharmD Unavailable [phone] Basilio Hall MD Unavailable [phone] Ron Preciado MD Unavailable [phone] Reason for Visit * Reason Onset Date Comments Med Refill 09/18/2023 Encounter Details Date Type Department Care Team (Late st Contact Info) Description 09/18/2023 Telephone [facility] MEDICINE 230 [place], [place] [phone] Sariah Vickers ANP 230 [place], [place] [phone] Med Refill Social History Tobacco Use Types [...] refill : Tramadol To be sent to: [facility] - [place], [place] - [address] [place] [address] documented in this encounter Plan of Treatment Upcoming Encounters Date Type Department Care Team ([facility] st Contact Info) Description 07/15/2024 1:00 PM EDT Office Visit [facility] MEDICINE [address] [place] [address] Sariah Vickers ANP 230 [place] [address] 07/16/2024 3:00 PM EDT Office Visit [facility] ADULT DENTAL [address] [place] [address] Yogesh Gomez, JOHN 230 [place] [address] 08/04/2024 10:00 AM EDT Medication Management [facility] MED[facility]INE [address] [place] [address] Yuri Pierre, PharmD 230 [place] [address] 08/04/2024 1:00 PM EDT Office Visit [facility] ADULT DENTAL 230 [place] [address] Nuvia Duarte 230 [place] [address] 09/03/2024 2:00 PM EDT Office Visit [facility] MEDICINE 230 [place] [address] Hallie Tapia MD 230 [place] [address] 09/27/2024 2:00 PM EDT Office Visit [facility] OPTOMETRY [address] [place] [address] Luisa Martinez, OD 230 [place] [address] 10/01/2024 11:00 AM EDT Clinical Support [address] [address] Azeb Hall, RN 505 [place] [address] documented as of this encounter Goals Goal [...] as of this encounter Care Teams Dry Food Products Mixer Relationship Specialty Start Date End Date Sariah Vickers ANP 230 [place] [address] PCP - General Family Medicine 09/23/19 Yuri Pierre, Dileep 230 [place] [address] Pharmacist Internal Medicine 05/05/24 Basilio Hall MD [address] [place] [address] Cardiology 05/17/24 Ron Preciado MD [address] [place] [address] Pulmonary Disease 05/17/24 documented as of this encounter
--- OUTSIDE RECORDS SUMMARY | 2024-07-05 11:44 | XMS_ITS | Encounter Summary ---
Author Organization [employer] Address 75 [facility] 7t [place] [address] Care Team Providers Care Software Quality Tester Name Role Phone Sariah Vickers Primary Care Provider [phone] Yuri Pierre PharmD Unavailable [phone] Basilio Hall MD Unavailable [phone] Ron Preciado MD Unavailable [phone] Reason for Visit * Reason Comments Med Refill Encounter Details Date Type Department Care Team (Late st Contact Info) Description 10/17/[address] [facility] MEDICINE [address] [place] [address] Sariah Vickers ANP 230 [place] [address] Neck pain Social History Tobacco Use Types [...] Description 07/15/2024 1:00 PM EDT Office Visit [facility] MEDICINE [address] [place] [address] Sariah Vickers, ANP 230 [place] [address] 07/16/2024 3:00 PM EDT Office Visit [facility] ADULT DENTAL [address] [place] [address] Yogesh Gomez, DMD 230 [place] [address] 08/04/2024 10:00 AM EDT Medication Management [facility] MEDICINE [address] [place] [address] Yuri Pierre, PharmD 230 [place] [address] 08/04/2024 1:00 PM EDT Office Visit [facility] ADULT DENTAL [address] [place] [address] Nuvia Duarte 230 [place] [address] 09/03/2024 2:00 PM EDT Office Visit [facility] MEDICINE [address] [place] [address] Hallie Tapia MD 230 [place] [address] 09/27/2024 2:00 PM EDT Office Visit [facility] OPTOMETRY [address] [place] [address] Luisa Martinez, OD 230 [place] [address] 10/01/2024 11:00 AM EDT Clinical Support [facility] MEDICINE 230 [place] [address] Azeb Hall RN 505 [place] [address] documented as of this encounter Goals Goal [...] documented as of this encounter Care Teams Software Quality Tester Relationship Specialty Start Date End Date Sariah Vickers ANP [address] [place] [address] PCP - General Family Medicine 09/23/19 Yuri Pierre, MikeD [address] [place] [address] Pharmacist Internal Medicine 05/05/24 Basilio Hall MD [address] [place] [address] Cardiology 05/17/24 Ron Preciado MD [address] [place] [address] Pulmonary Disease 05/17/24 documented as of this encounter
--- OUTSIDE RECORDS SUMMARY | 2024-07-05 11:44 | XMS_ITS | Encounter Summary ---
Author Organization [employer] Address 75 [facility] 7t [place] [address] Care Team Providers Care Sales Representative Public Utilities Name Role Phone Sariah Vickers Primary Care Provider [phone] Yuri Pierre PharmD Unavailable [phone] Basilio Hall MD Unavailable [phone] Ron Preciado MD Unavailable [phone] Reason for Visit * Reason Comments Med Refill Encounter Details Date Type Department Care Team (Late st Contact Info) Description 08/22/[address] [facility] MEDICINE 230 [place] [address] Sariah Vickers ANP 230 [place] [address] Neck pain Social History Tobacco Use Types [...] Description 07/15/2024 1:00 PM EDT Office Visit [facility] MEDICINE [address] [place] [address] Sariah Vickers, ANP 230 [place] [address] 07/16/2024 3:00 PM EDT Office Visit [facility] ADULT DENTAL [address] [place] [address] Yogesh Gomez, DMD 230 [place] [address] 08/04/2024 10:00 AM EDT Medication Management [facility] MED[facility]INE [address] [place] [address] Yuri Pierre, PharmD 230 [place] [address] 08/04/2024 1:00 PM EDT Office Visit [facility] ADULT DENTAL [address] [place] [address] Nuvia Duarte 230 [place] [address] 09/03/2024 2:00 PM EDT Office Visit [facility] MEDICINE 230 [place] [address] Hallie Tapia MD 230 [place] [address] 09/27/2024 2:00 PM EDT Office Visit [facility] OPTOMETRY [address] [place] [address] Luisa Martinez, OD 230 [place] [address] 10/01/2024 11:00 AM EDT Clinical Support [facility] MED[facility]INE 230 [place] [address] Azeb Hall RN 505 [place] [address] documented as of this encounter Goals Goal [...] as of this encounter Care Teams Sales Representative Public Utilities Relationship Specialty Start Date End Date Sariah Vickers ANP [address] [place] [address] PCP - General Family Medicine 09/23/19 Yuri Pierre, MikeD [address] [place] [address] Pharmacist Internal Medicine 05/05/24 Basilio Hall MD [address] [place] [address] Cardiology 05/17/24 Ron Preciado MD [address] [place] [address] Pulmonary Disease 05/17/24 documented as of this encounter
--- OUTSIDE RECORDS SUMMARY | 2024-07-05 11:44 | XMS_ITS | Encounter Summary ---
Author Organization [employer] Address 75 [facility] 7t [place] [address] Care Team Providers Care Linux Systems Engineer Name Role Phone Sariah Vickers Primary Care Provider Yuri Pierre PharmD Unavailable [phone] Basilio Hall MD Unavailable [phone] Ron Preciado MD Unavailable [phone] Encounter Details Date Type Department Care Team (Late st Contact Info) Description 01/09/2022 Abstract [facility] ADULT DENTAL 230 [place] [address] Dental, Provider, DDS Social History Tobacco Use [...] Department Care Team (Late Contact Info) Description 07/15/2024 1:00 PM EDT Office Visit [facility] MEDICINE 230 [place] [address] Sariah Vickers ANP 230 [place] [address] 07/16/2024 3:00 PM EDT Office Visit [facility] ADULT DENTAL 230 [place] [address] Yogesh Gomez, JOHN 230 [place] [address] 08/04/2024 10:00 AM EDT Medication Management [facility] MEDICINE 230 [place] [address] Yuri Pierre, PharmD 230 [place] [address] 08/04/2024 1:00 PM EDT Office Visit [facility] ADULT DENTAL 230 [place] [address] Brendan Duartearis 230 [place] [address] 09/03/2024 2:00 PM EDT Office Visit [address] [address] Hallie Tapia MD 230 [place] [address] 09/27/2024 2:00 PM EDT Office Visit [facility] OPTOMETRY [address] [place] [address] Juan, Luisa, OD 230 [place] [address] 10/01/2024 11:00 AM EDT Clinical Support [address] [address] Azeb Hall, RN 505 [place] [address] documented as of this encounter Procedures Procedure Name Priority Date/Time Associated Diagnosis Comments 18,19,30,31 PARTIAL DENTURE Routine 01/09/2022 12:00 AM EST 3,5,12,14,15 PARTIAL DENTURE Routine 01/09/2022 12:00 AM EST 25 LI COMPOSITE FILLING Routine 01/10/20 22 12:00 AM EST 24 LEE COMPOSITE FILLING Routine 022 12:00 AM EST 23 LI COMPOSITE FILLING Routine 01/10/20 22 12:00 AM EST 22 LI COMPOSITE FILLING Routine 01/10/20 22 12:00 AM EST 11 LI COMPOSITE FILLING Routine 01/10/20 22 12:00 AM EST 10 LI COMPOSITE FILLING [...] on filedocumented in this encounter Care Teams Linux Systems Engineer Relationship Specialty Start Date End Date Sariah Vickers ANP 230 [place] [address] PCP - General Family Medicine 09/23/19 Yuri Pierre, Dileep 230 [place] [address] Pharmacist Internal Medicine 05/05/24 Basilio Hall MD [address] [place] [address] Cardiology 05/17/24 Ron Preciado MD [address] [place] [address] Pulmonary Disease 05/17/24 documented as of this encounter
--- OUTSIDE RECORDS SUMMARY | 2024-07-05 11:44 | XMS_ITS | Encounter Summary ---
Author Organization [employer] Address 75 [facility] 7t [place] [address] Care Team Providers Care Oxygen Furnace Operator Name Role Phone Sariah Vickers Primary Care Provider [phone] Yuri Pierre PharmD Unavailable [phone] Basilio Hall MD Unavailable [phone] Ron Preciado MD Unavailable [phone] Encounter Details Date Type Department Care Team (Late st Contact Info) Description 02/05/2022 Abstract [facility] MEDICINE [address] [place] [address] Sariah Vickers ANP 230 [place] [address] Social History Tobacco Use Types Packs/Day Years [...] PM EST documented as of this encounter Functional Status * Over the past 2 weeks, how often have you been bothered by any of the following problems? Question Answer Date of Assessment Author Little interest or pleasure in doing things Not at all 02/05/2022 2:47 PM EST Sixto Stearns [place] Feeling down, depressed, or hopeless Not at all 02/05/2022 2:47 PM EST Sixto Stearns [place] Patient Health Questionnaire -2 Score 0 02/05/2022 2:47 PM EST Sixto Stearns [place] documented as of this encounter Plan of Treatment Upcoming Encounters Date Type Department Care Team (Late st Contact Info) Description 07/15/2024 1:00 PM EDT Office Visit [facility] MEDICINE [address] [place] [address] Sariah Vickers ANP 230 [place] [address] 07/16/2024 3:00 PM EDT Office Visit [facility] ADULT DENTAL 230 [place] [address] Yogesh Gomez, JOHN 230 [place] [address] 08/04/2024 10:00 AM EDT Medication Management [facility] [address] [place] [address] Yuri Pierre, PharmD 230 [place] [address] 08/04/2024 1:00 PM EDT Office Visit [facility] ADULT DENTAL [address] [place] [address] Nuvia Duarte [address] [place] [address] 09/03/2024 2:00 PM EDT Office Visit [facility] MED[facility]INE [address] [place] [address] Hallie Tapia MD 230 [place] [address] 09/27/2024 2:00 PM EDT Office Visit [facility] OPTOMETRY [address] [place] [address], [place] [address] Juan, Luisa, OD 230 [place] [address] 10/01/2024 11:00 AM EDT Clinical Support [facility] [address] [place] [address] Azeb Hall, RN 505 [place] [address] documented as of this encounter Visit Diagnoses Not on filedocumented in this encounter Care Teams Oxygen Furnace Operator Relationship Specialty Start Date End Date Sariah Vickers ANP 230 [place] [address] PCP - General Family Medicine 09/23/19 Yuri Pierre, MikeD 230 [place] [address] Pharmacist Internal Medicine 05/05/24 Basilio Hall MD [address] [place] [address] Cardiology 05/17/24 Ron Preciado MD [address] [place] [address] Pulmonary Disease 05/17/24 documented as of this encounter
--- OUTSIDE RECORDS SUMMARY | 2024-07-05 11:44 | XMS_ITS | Encounter Summary ---
Author Organization [employer] Address 75 [facility] 7t [place] [address] Care Team Providers Care Oil Plant Operator Name Role Phone Sariah Vickers Primary Care Provider Yuri Pierre PharmD Unavailable [phone] Basilio Hall MD Unavailable [phone] Ron Preciado MD Unavailable [phone] Reason for Visit * Reason Comments Med Refill Encounter Details Date Type Department Care Team (Late st Contact Info) Description 03/09/2024 Refill [facility] [address] [place] [address] Sariah Vickers ANP 230 [place] [address] Neck pain Social History Tobacco Use Types [...] Description 07/15/2024 1:00 PM EDT Office Visit [facility] MEDICINE [address] [place] [address] Sariah Vickers, ANP 230 [place] [address] 07/16/2024 3:00 PM EDT Office Visit [facility] ADULT DENTAL [address] [place] [address] Yogesh Gomez, DMD 230 [place] [address] 08/04/2024 10:00 AM EDT Medication Management [facility] MEDICINE [address] [place] [address] Yuri Pierre, PharmD 230 [place] [address] 08/04/2024 1:00 PM EDT Office Visit [facility] ADULT DENTAL [address] [place] [address] Nuvia Duarte 230 [place] [address] 09/03/2024 2:00 PM EDT Office Visit [facility] MEDICINE [address] [place] [address] Hallie Tapia MD 230 [place] [address] 09/27/2024 2:00 PM EDT Office Visit [facility] OPTOMETRY [address] [place] [address] Luisa Martinez, OD 230 [place] [address] 10/01/2024 11:00 AM EDT Clinical Support [facility] MEDICINE 230 [place] [address] Azeb Hall RN 505 [place] [address] documented as of this encounter Goals Goal Patient Goal Type Associated Problems Recent Progress Patient-Stated? Author Blood Pressure < 140/90 Blood Pressure 142/80(2024 11:35 AM EDT) No PhanisArlineGambAida buck, PharmD Record Your Blood Sugar As Directed General No Phanis-Aida Medina, PharmD Hemoglobin A1c < 7 Result Component 6.6( 3:08 PM EDT) No Phanis-Aida Medina, PharmD documented as of this encounter Visit Diagnoses Diagnosis Neck pain Cervicalgia documented in this encounter Additional Health Concerns Assessment Noted Time PHQ-9 Depression Total Score: 12 024 2:58 PM EDT documented as of this encounter Care Teams Oil Plant Operator Relationship Specialty Start Date End Date Sariah Vickers ANP [address] [place] [address] PCP - General Family Medicine 09/23/19 Yuri Pierre, MikeD [address] [place] [address] Pharmacist Internal Medicine 05/05/24 Basilio Hall MD [address] [place] [address] Cardiology 05/17/24 Ron Preciado MD [address] [place] [address] Pulmonary Disease 05/17/24 documented as of this encounter
--- OUTSIDE RECORDS SUMMARY | 2024-07-05 11:44 | XMS_ITS | Encounter Summary ---
Author Organization [employer] Address [address] 7t [place] [address] Care Team Providers Care Washer Blanket Name Role Phone Sariah Vickers Primary Care Provider [phone] Yuri Pierre PharmD Unavailable [phone] Basilio Hall MD Unavailable [phone] Ron Preciado MD Unavailable [phone] Reason for Visit * Reason Comments Med Refill Encounter Details Date Type Department Care Team (Late st Contact Info) Description 10/03/2023 Refill [facility] [address] [place] [address] Sariah Vickers ANP 230 [place] [address] Chronic SI joint pain Social History Tobacco [...] Description 07/15/2024 1:00 PM EDT Office Visit [facility] MEDICINE [address] [place] [address] Sariah Vickers, ANP 230 [place] [address] 07/16/2024 3:00 PM EDT Office Visit [facility] ADULT DENTAL [address] [place] [address] Yogesh Gomez, DMD [address] [place] [address] 08/04/2024 10:00 AM EDT Medication Management [facility] [address] [place] [address] Yuri Pierre, PharmD [address] [place] [address] 08/04/2024 1:00 PM EDT Office Visit [facility] [address] [place] [address] Nuvia Duarte [address] [place] [address] 09/03/2024 2:00 PM EDT Office Visit [facility] [address] [place] [address] Hallie Tapia MD [address] [place] [address] 09/27/2024 2:00 PM EDT Office Visit [facility] OPTOMETRY [address] [place] [address] Luisa Martinez, OD 230 [place] [address] 10/01/2024 11:00 AM EDT Clinical Support [facility] [address] [place] [address] Azeb Hall, MARTIN 505 [place] [address] documented as of this encounter Goals Goal Patient Goal Type Associated Problems Recent Progress Patient-Stated? Author Blood Pressure < 140/90 Blood Pressure 142/80(2024 11:35 AM EDT) No Aida Ragland, PharmD Record Your Blood Sugar As Directed General No Aida Ragland, PharmD Hemoglobin A1c < 7 Result Component 6.6( 3:08 PM EDT) No Aida Ragland, PharmD documented as of this encounter Visit Diagnoses Diagnosis Chronic SI joint pain Disorders of sacrum documented in this encounter Additional Health Concerns Assessment Noted Time PHQ-9 Depression Total Score: 12 024 2:58 PM EDT documented as of this encounter Care Teams Washer Blanket Relationship Specialty Start Date End Date Sariah Vickers ANP [address] [place] [address] PCP - General Family Medicine 09/23/19 Yuri Pierre, MikeD [address] [place] [address] Pharmacist Internal Medicine 05/05/24 Basilio Hall MD [address] [place] [address] Cardiology 05/17/24 Ron Preciado MD [address] [place] [address] Pulmonary Disease 05/17/24 documented as of this encounter
--- OUTSIDE RECORDS SUMMARY | 2024-07-05 11:44 | XMS_ITS | Encounter Summary ---
Author Organization [employer] Address 75 [facility] 7t [place] [address] Care Team Providers Care Automobile Painter Name Role Phone Sariah Vickers Primary Care Provider [phone] Yuri Pierre PharmD Unavailable [phone] Basilio Hall MD Unavailable [phone] Ron Preciado MD Unavailable [phone] Reason for Visit * Reason Comments Med Refill Encounter Details Date Type Department Care Team (Late st Contact Info) Description 03/26/2022 Refill [facility] MED[facility] 230 [place] [address] Sariah Vickers ANP [address] [place] [address] Social History Tobacco Use Types Packs/Day Years [...] Description 07/15/2024 1:00 PM EDT Office Visit [facility] MEDICINE 230 [place] [address] Sariah Vickers ANP [address] [place] [address] 07/16/2024 3:00 PM EDT Office Visit [facility] ADULT DENTAL 230 [place] [address] Yogesh Gomez, JOHN 230 [place] [address] 08/04/2024 10:00 AM EDT Medication Management [facility] MEDICINE 230 [place] [address] Yuri Pierre, PharmD 230 [place] [address] 08/04/2024 1:00 PM EDT Office Visit [facility] ADULT DENTAL 230 [place] [address] Nuvia Duarte [address] [place] [address] 09/03/2024 2:00 PM EDT Office Visit [facility] MEDICINE 230 [place] [address] Hallie Tapia MD 230 [place] [address] 09/27/2024 2:00 PM EDT Office Visit [facility] OPTOMETRY [address] [place] [address] Luisa Martinez, SANDHYA 230 [place] [address] 10/01/2024 11:00 AM EDT Clinical Support [address] [address] Azeb Hall, MARTIN 505 [place] [address] documented as of this encounter Visit Diagnoses Not on filedocumented in this encounter Care Teams Automobile Painter Relationship Specialty Start Date End Date Sariah Vickers ANP [address] [place] [address] PCP - General Family Medicine 09/23/19 Yuri Pierre, Dileep [address] [place] [address] Pharmacist Internal Medicine 05/05/24 Basilio Hall MD 596 [place] [address] Cardiology 05/17/24 Ron Preciado MD [address] [place] [address] Pulmonary Disease 05/17/24 documented as of this encounter
--- OUTSIDE RECORDS SUMMARY | 2024-07-05 11:44 | XMS_ITS | Encounter Summary ---
Author Organization [email or web address] Address 75 [facility] 7t [place] [address] Care Team Providers Care Outside Sales Account Manager Name Role Phone Sariah Vickers Primary Care Provider [phone] Yuri Pierre PharmD Unavailable [phone] Basilio Hall MD Unavailable [phone] Ron Preciado MD Unavailable [phone] Encounter Details Date Type Department Care Team (Latest Contact Info) Description 05/15/2018 Abstract [facility] CONVERSIONS Dental, Provider, DDS Social [...] Description 07/15/2024 1:00 PM EDT Office Visit [facility] MEDICINE 230 [place] [address] Sariah Vickers ANP 230 [place] [address] 07/16/2024 3:00 PM EDT Office Visit [facility] ADULT DENTAL 230 [place] [address] Yogesh Gomez, JOHN 230 [place] [address] 08/04/2024 10:00 AM EDT Medication Management [facility] MEDICINE 230 [place] [address] Yuri Pierre, PharmD 230 [place] [address] 08/04/2024 1:00 PM EDT Office Visit [facility] ADULT DENTAL 230 [place] [address] Brendan Duartearis 230 [place] [address] 09/03/2024 2:00 PM EDT Office Visit [facility] MEDICINE [address] [place] [address] Hallie Tapia MD 230 [place] [address] 09/27/2024 2:00 PM EDT Office Visit [facility] OPTOMETRY [address] [place] [address] Luisa Martinez, SANDHYA 230 [place] [address] 10/01/2024 11:00 AM EDT Clinical Support [address] [address] Azeb Hall, RN 505 [place] [address] documented as of this encounter Visit Diagnoses Not on filedocumented in this encounter Care Teams Outside Sales Account Manager Relationship Specialty Start Date End Date Sariah Vickers ANP [address] [place] [address] PCP - General Family Medicine 09/23/19 Yuri Pierre, PharmD [address] [place] [address] Pharmacist Internal Medicine 05/05/24 Basilio Hall MD 596 [place] [address] Cardiology 05/17/24 Ron Preciado MD [address] [place] [address] [place] [address] Pulmonary Disease 05/17/24 documented as of this encounter
--- OUTSIDE RECORDS SUMMARY | 2024-07-05 11:44 | XMS_ITS | Encounter Summary ---
Author Organization [employer] Address [address] [facility] 7t [place] [address] Care Team Providers Care Business Performance Analyst Name Role Phone Sariah Vickers Primary Care Provider [phone] Yuri Pierre PharmD Unavailable [phone] Basilio Hall MD Unavailable [phone] Ron Preciado MD Unavailable [phone] Reason for Visit * Reason Comments Med Refill Encounter Details Date Type Department Care Team (Late st Contact Info) Description 11/26/2023 Refill [facility] 230 [place] [address] Sariah Vickers ANP [address] [place] [address] Vertigo Social History Tobacco Use Types Packs/Day [...] Description 07/15/2024 1:00 PM EDT Office Visit [facility] MEDICINE [address] [place] [address] Sariah Vickers, ANP 230 [place] [address] 07/16/2024 3:00 PM EDT Office Visit [facility] ADULT DENTAL [address] [place] [address] Yogesh Gomez, DMD 230 [place] [address] 08/04/2024 10:00 AM EDT Medication Management [facility] MEDICINE [address] [place] [address] Yuri Pierre, PharmD 230 [place] [address] 08/04/2024 1:00 PM EDT Office Visit [facility] ADULT DENTAL [address] [place] [address] Nuvia Duarte [address] [place] [address] 09/03/2024 2:00 PM EDT Office Visit [facility] MEDICINE 230 [place] [address] Hallie Tapia MD 230 [place] [address] 09/27/2024 2:00 PM EDT Office Visit [facility] OPTOMETRY [address] [place] [address] Luisa Martinez, OD 230 [place] [address] 10/01/2024 11:00 AM EDT Clinical Support [facility] MEDICINE 230 [place] [address] Azeb Hall RN 505 [place] [address] documented as of this encounter Goals Goal Patient Goal Type Associated Problems Recent Progress Patient-Stated? Author Blood Pressure < 140/90 Blood Pressure 142/80(2024 11:35 AM EDT) No PhanisAida Cheng, PharmD Record Your Blood Sugar As Directed General No Phanis-Aida Medina, PharmD Hemoglobin A1c < 7 Result Component 6.6( 3:08 PM EDT) No PhanisAida Cheng, PharmD documented as of this encounter Visit Diagnoses Diagnosis Vertigo Dizziness and giddiness documented in this encounter Additional Health Concerns Assessment Noted Time PHQ-9 Depression Total Score: 12 024 2:58 PM EDT documented as of this encounter Care Teams Business Performance Analyst Relationship Specialty Start Date End Date Sariah Vickers ANP [address] [place] [address] PCP - General Family Medicine 09/23/19 Yuri Pierre, MikeD [address] [place] [address] Pharmacist Internal Medicine 05/05/24 Basilio Hall MD 596 [place] [address] Cardiology 05/17/24 Ron Preciado MD [address] [place] [address] Pulmonary Disease 05/17/24 documented as of this encounter
--- OUTSIDE RECORDS SUMMARY | 2024-07-05 11:44 | XMS_ITS | Encounter Summary ---
Author Organization [employer] Address 75 [facility] 7t [place] [address] Care Team Providers Care Kitchen Aide Name Role Phone Sariah Vickers Primary Care Provider [phone] Yuri Pierre PharmD Unavailable [phone] Basilio Hall MD Unavailable [phone] Ron Preciado MD Unavailable [phone] Reason for Visit * Reason Comments Med Refill Encounter Details Date Type Department Care Team (Late st Contact Info) Description 02/06/2022 Refill [facility] MEDICINE 230 [place] [address] Sariah Vickers ANP 230 [place] [address] Social History Tobacco Use Types Packs/Day Years [...] EDT Office Visit [facility] MEDICINE 230 [place] [address] Sariah Vickers ANP 230 [place] [address] 07/16/2024 3:00 PM EDT Office Visit [facility] ADULT DENTAL 230 [place] [address] Yogesh Gomez, JOHN 230 [place] [address] 08/04/2024 10:00 AM EDT Medication Management [facility] MEDICINE 230 [place] [address] Yuri Pierre, PharmD 230 [place] [address] 08/04/2024 1:00 PM EDT Office Visit [facility] ADULT DENTAL 230 [place] [address] Nuvia Duarte 230 [place] [address] 09/03/2024 2:00 PM EDT Office Visit [facility] MEDICINE 230 [place] [address] Hallie Tapia MD 230 [place] [address] 09/27/2024 2:00 PM EDT Office Visit [facility] OPTOMETRY [address] [place] [address] Luisa Martinez, SANDHYA 230 [place] [address] 10/01/2024 11:00 AM EDT Clinical Support [address] [address] Azeb Hall, MARTIN 505 [place] [address] documented as of this encounter Visit Diagnoses Not on filedocumented in this encounter Care Teams Kitchen Aide Relationship Specialty Start Date End Date Sariah Vickers ANP 230 [place] [address] PCP - General Family Medicine 09/23/19 Yuri Pierre, Dileep [address] [place] [address] Pharmacist Internal Medicine 05/05/24 Basilio Hall MD 596 [place] [address] Cardiology 05/17/24 Ron Preciado MD [address] [place] [address] Pulmonary Disease 05/17/24 documented as of this encounter
--- OUTSIDE RECORDS SUMMARY | 2024-07-05 11:44 | XMS_ITS | Encounter Summary ---
Author Organization [employer] Address 75 [facility] 7t [place] [address] Care Team Providers Care Excellence Coach Name Role Phone Sariah Vickers Primary Care Provider [phone] Yuri Pierre PharmD Unavailable [phone] Basilio Hall MD Unavailable [phone] Ron Preciado MD Unavailable [phone] Reason for Visit * Reason Comments Med Refill Encounter Details Date Type Department Care Team (Late st Contact Info) Description 11/24/2023 Refill [facility] MEDICINE 230 [place] [address] Sariah Vickers ANP [address] [place] [address] Vertigo Social History Tobacco Use Types Packs/Day [...] [facility] MEDICINE [address] [place] [address] Sariah Vickers, ANP [address] [place] [address] 07/16/2024 3:00 PM EDT Office Visit [facility] ADULT DENTAL [address] [place] [address] Yogesh Gomez, DMD 230 [place] [address] 08/04/2024 10:00 AM EDT Medication Management [facility] MEDICINE [address] [place] [address] Yuri Pierre, PharmD [address] [place] [address] 08/04/2024 1:00 PM EDT Office Visit [facility] ADULT DENTAL [address] [place] [address] Nuvia Duarte 230 [place] [address] 09/03/2024 2:00 PM EDT Office Visit [facility] MEDICINE 230 [place] [address] Hallie Tapia MD 230 [place] [address] 09/27/2024 2:00 PM EDT Office Visit [facility] OPTOMETRY [address] [place] [address] Luisa Martinez, OD 230 [place] [address] 10/01/2024 11:00 AM EDT Clinical Support [facility] MEDICINE 230 [place] [address] Azeb Hall RN 505 [place] [address] documented as of this encounter Goals Goal [...] documented as of this encounter Care Teams Excellence Coach Relationship Specialty Start Date End Date Sariah Vickers ANP [address] [place] [address] PCP - General Family Medicine 09/23/19 Yuri Pierre, MikeD [address] [place] [address] Pharmacist Internal Medicine 05/05/24 Basilio Hall MD 5[address] [place] [address] Cardiology 05/17/24 Ron Preciado MD [address] [place] [address] Pulmonary Disease 05/17/24 documented as of this encounter
--- OUTSIDE RECORDS SUMMARY | 2024-07-05 11:44 | XMS_ITS | Encounter Summary ---
Author Organization [employer] Address [address] [facility] [address] 7t [place] [address] Care Team Providers Care Inspector Heating And Refrigeration Name Role Phone Sariah Vickers Primary Care Provider [phone] Yuri Pierre PharmD Unavailable [phone] Basilio Hall MD Unavailable [phone] Ron Preciado MD Unavailable [phone] Reason for Visit * Reason Comments Med Refill Encounter Details Date Type Department Care Team (Late st Contact Info) Description 10/03/2023 Refill [facility] 230 [place] [address] Sariah Vickers ANP 230 [place] [address] Chronic SI joint pain Social History Tobacco [...] Description 07/15/2024 1:00 PM EDT Office Visit [facility] MEDICINE [address] [place] [address] Sariah Vickers, ANP 230 [place] [address] 07/16/2024 3:00 PM EDT Office Visit [facility] ADULT DENTAL [address] [place] [address] Yogesh Gomez, DMD 230 [place] [address] 08/04/2024 10:00 AM EDT Medication Management [facility] MEDICINE [address] [place] [address] Yuri Pierre, PharmD [address] [place] [address] 08/04/2024 1:00 PM EDT Office Visit [facility] ADULT DENTAL [address] [place] [address] Nuvia Duarte 230 [place] [address] 09/03/2024 2:00 PM EDT Office Visit [facility] MEDICINE 230 [place] [address] Hallie Tapia MD 230 [place] [address] 09/27/2024 2:00 PM EDT Office Visit [facility] OPTOMETRY [address] [place] [address] Luisa Martinez, OD 230 [place] [address] 10/01/2024 11:00 AM EDT Clinical Support [facility] MED[facility] 230 [place] [address] Azeb Hall, MARTIN 505 [place] [address] documented as of this encounter Goals Goal [...] as of this encounter Care Teams Inspector Heating And Refrigeration Relationship Specialty Start Date End Date Sariah Vickers ANP 230 [place] [address] PCP - General Family Medicine 09/23/19 Yuri Pierre, MikeD [address] [place] [address] Pharmacist Internal Medicine 05/05/24 Basilio Hall MD 596 [place] [address] Cardiology 05/17/24 Ron Preciado MD [address] [place] [address] Pulmonary Disease 05/17/24 documented as of this encounter
--- OUTSIDE RECORDS SUMMARY | 2024-07-05 11:44 | XMS_ITS | Encounter Summary ---
Author Organization [employer] Address 75 [facility] 7t [place] [address] Care Team Providers Care Parole Or Probation Officer Name Role Phone Sariah Vickers Primary Care Provider [phone] Yuri Pierre PharmD Unavailable [phone] Basilio Hall MD Unavailable [phone] Ron Preciado MD Unavailable [phone] Reason for Visit * Reason Comments Med Refill Encounter Details Date Type Department Care Team (Late st Contact Info) Description 12/17/2023 Refill [facility] MEDICINE [address] [place] [address] Sariah Vickers ANP 230 [place] [address] Chronic SI joint pain Social History Tobacco [...] Description 07/15/2024 1:00 PM EDT Office Visit [facility] MEDICINE [address] [place] [address] Sariah Vickers, ANP 230 [place] [address] 07/16/2024 3:00 PM EDT Office Visit [facility] ADULT DENTAL [address] [place] [address] Yogesh Gomez, DMD 230 [place] [address] 08/04/2024 10:00 AM EDT Medication Management [facility] MEDICINE [address] [place] [address] Yuri Pierre, PharmD 230 [place] [address] 08/04/2024 1:00 PM EDT Office Visit [facility] ADULT DENTAL [address] [place] [address] Nuvia Duarte [address] [place] [address] 09/03/2024 2:00 PM EDT Office Visit [facility] MEDICINE [address] [place] [address] Hallie Tapia MD 230 [place] [address] 09/27/2024 2:00 PM EDT Office Visit [facility] OPTOMETRY [address] [place] [address] Luisa Martinez, OD 230 [place] [address] 10/01/2024 11:00 AM EDT Clinical Support [facility] MEDICINE [address] [place] [address] Azeb Hall RN 505 [place] [address] documented as of this encounter Goals Goal Patient Goal Type Associated Problems Recent Progress Patient-Stated? Author Blood Pressure < 140/90 Blood Pressure 142/80(2024 11:35 AM EDT) No PhanisAida Cheng, PharmD Record Your Blood Sugar As Directed General No Phanis-Aida Medina, PharmD Hemoglobin A1c < 7 Result Component 6.6( 3:08 PM EDT) No Phanis-Aida Medina PharmD documented as of this encounter Visit Diagnoses Diagnosis Chronic SI joint pain Disorders of sacrum documented in this encounter Additional Health Concerns Assessment Noted Time PHQ-9 Depression Total Score: 12 024 2:58 PM EDT documented as of this encounter Care Teams Parole Or Probation Officer Relationship Specialty Start Date End Date Sariah Vickers ANP 230 [place] [address] PCP - General Family Medicine 09/23/19 Yuri Pierre, MikeD [address] [place] [address] Pharmacist Internal Medicine 05/05/24 Basilio Hall MD 596 [place] [address] Cardiology 05/17/24 Ron Preciado MD [address] [place] [address] Pulmonary Disease 05/17/24 documented as of this encounter
--- OUTSIDE RECORDS SUMMARY | 2024-07-05 11:44 | XMS_ITS | Encounter Summary ---
Author Organization [employer] Address [address] [facility] [address] 7t [place] [address] Care Team Providers Care Medical Billing Specialist Name Role Phone Sariah Vickers Primary Care Provider [phone] Yuri Pierre PharmD Unavailable [phone] Basilio Hall MD Unavailable [phone] Ron Preciado MD Unavailable [phone] Reason for Visit * Reason Comments Med Refill Patient walked [facility] hasn't finished her Medbox due to missing refill for medication Gabapetin . Encounter Details Date Type Department Care Team (Late st Contact Info) Description 10/03/2023 Refill [facility] 230 [place], [place] [phone] Sariah Vickers ANP 230 [place], [place] [phone] Chronic SI joint pain Social History Tobacco [...] the past 12 months, has t he [employer], gas, oil or water company threatened to [...] Description 07/15/2024 1:00 PM EDT Office Visit [facility] MEDICINE [address] [place] [address] Sariah Vickers ANP 230 [place] [address] 07/16/2024 3:00 PM EDT Office Visit [facility] ADULT DENTAL 230 [place] [address] Yogesh Gomez, DMD 230 [place] [address] 08/04/2024 10:00 AM EDT Medication Management [facility] MEDICINE 230 [place] [address] Yuri Pierre, PharmD 230 [place] [address] 08/04/2024 1:00 PM EDT Office Visit [facility] ADULT DENTAL 230 [place] [address] Felicia, Nuvia 230 [place] [address] 09/03/2024 2:00 PM EDT Office Visit [address] [address] Hallie Tapia MD 230 [place] [address] 09/27/2024 2:00 PM EDT Office Visit [facility] OPTOMETRY [address] [place] [address] Luisa Martinez, OD 230 [place] [address] 10/01/2024 11:00 AM EDT Clinical Support [address] [address] Azeb Hall, RN 505 [place] [address] documented as of this encounter Goals Goal [...] as of this encounter Care Teams Medical Billing Specialist Relationship Specialty Start Date End Date Sariah Vickers ANP 230 [place] [address] PCP - General Family Medicine 09/23/19 Yuri Pierre, Dileep 230 [place] [address] Pharmacist Internal Medicine 05/05/24 Basilio Hall MD 596 [place] [address] Cardiology 05/17/24 Ron Preciado MD [address] [place] [address] Pulmonary Disease 05/17/24 documented as of this encounter
--- OUTSIDE RECORDS SUMMARY | 2024-07-05 11:44 | XMS_ITS | Encounter Summary ---
Author Organization [employer] Address 75 [facility] 7t [place] [address] Care Team Providers Care Pump Stitcher Name Role Phone Sariah Vickers Primary Care Provider [phone] Yuri Pierre PharmD Unavailable [phone] Basilio Hall MD Unavailable [phone] Ron Preciado MD Unavailable [phone] Reason for Visit * Reason Comments Med Refill Encounter Details Date Type Department Care Team (Late st Contact Info) Description 06/17/2024 Refill [facility] WALK[facility]ENTER [address] [place] [address] Sariah Vickers ANP 230 [place] [address] Neck pain Social History Tobacco Use Types [...] Description 07/15/2024 1:00 PM EDT Office Visit [facility] MEDICINE [address] [place] [address] Sariah Vickers, ANP 230 [place] [address] 07/16/2024 3:00 PM EDT Office Visit [facility] ADULT DENTAL [address] [place] [address] Yogesh Gomez, DMD 230 [place] [address] 08/04/2024 10:00 AM EDT Medication Management [facility] MEDICINE [address] [place] [address] Yuri Pierre, PharmD 230 [place] [address] 08/04/2024 1:00 PM EDT Office Visit [facility] ADULT DENTAL [address] [place] [address] Nuvia Duarte 230 [place] [address] 09/03/2024 2:00 PM EDT Office Visit [facility] MEDICINE 230 [place] [address] Hallie Tapia MD 230 [place] [address] 09/27/2024 2:00 PM EDT Office Visit [facility] OPTOMETRY [address] [place] [address] Luisa Martinez, OD 230 [place] [address] 10/01/2024 11:00 AM EDT Clinical Support [facility] MEDICINE 230 [place] [address] Azeb Hall RN 505 [place] [address] documented as of this encounter Goals Goal [...] documented as of this encounter Care Teams Pump Stitcher Relationship Specialty Start Date End Date Sariah Vickers ANP [address] [place] [address] PCP - General Family Medicine 09/23/19 Yuri Pierre, MikeD [address] [place] [address] Pharmacist Internal Medicine 05/05/24 Basilio Hall MD [address] [place] [address] Cardiology 05/17/24 Ron Preciado MD [address] [place] [address] Pulmonary Disease 05/17/24 documented as of this encounter
--- OUTSIDE RECORDS SUMMARY | 2024-07-05 11:44 | XMS_ITS | Encounter Summary ---
Author Organization [employer] Address 75 [facility] 7t [place] [address] Care Team Providers Care Skiver Sock Linings Name Role Phone Sariah Vickers Primary Care Provider Yuri Pierre PharmD Unavailable [phone] Basilio Hall MD Unavailable [phone] Ron Preciado MD Unavailable [phone] Reason for Visit * Reason Onset Date Comments Nurse Triage 11/01/2022 Encounter Details Date Type Department Care Team (Late st Contact Info) Description 11/01/2022 Telephone [facility] MEDICINE [address] [place] [address] Sariah Vickers ANP 230 [place], [place] [phone] Nurse Triage Social History Tobacco Use Types [...] 11/01/2022 3:51 PM EDT Triage call [place] [id number] Pt reports blood sugars have been high [...] Description 07/15/2024 1:00 PM EDT Office Visit [facility] MEDICINE [address] [place] [address] Sariah Vickers ANP [address] [place] [address] 07/16/2024 3:00 PM EDT Office Visit [facility] ADULT DENTAL [address] [place] [address] Yogesh Gomez, JOHN [address] [place] [address] 08/04/2024 10:00 AM EDT Medication Management [facility] MEDICINE [address] [place] [address] Yuri Pierre, MikeD 230 [place] [address] 08/04/2024 1:00 PM EDT Office Visit [facility] ADULT DENTAL [address] [place] [address] Brendan Duartearis 230 [place] [address] 09/03/2024 2:00 PM EDT Office Visit [facility] MEDICINE [address] [place] [address] Hallie Tapia MD 230 [place] [address] 09/27/2024 2:00 PM EDT Office Visit [facility] OPTOMETRY [address] [place] [address] Luisa Martinez, OD 230 [place] [address] 10/01/2024 11:00 AM EDT Clinical Support [address] [address] Azeb Hall, RN 505 [place] [address] documented as of this encounter Goals Goal Patient Goal Type Associated Problems Recent Progress Patient-Stated? Author Blood Pressure < 140/90 Blood Pressure 142/80(2024 11:35 AM EDT) No Piers-Gambl e, Aida, PharmD Record Your Blood Sugar As Directed General No Piers-Gambl Veronica urbinasa, PharmD Hemoglobin A1c < 7 Result Component 6.6( 3:08 PM EDT) No Phanis-Gambl eAida, PharmD documented as of this encounter Visit Diagnoses Not on filedocumented in this encounter Care Teams Skiver Sock Linings Relationship Specialty Start Date End Date Sariah Vickers ANP [address] [place] [address] PCP - General Family Medicine 09/23/19 Yuri Pierre, MikeD 230 [place], [place] [phone] Pharmacist Internal Medicine 05/05/24 Basilio Hall MD 5[address] [place], [place] 1960240 Cardiology 05/17/24 Ron Preciado MD [address] [place] [address] [id number] Pulmonary Disease 05/17/24 documented as of this encounter
--- OUTSIDE RECORDS SUMMARY | 2024-07-05 11:44 | XMS_ITS | Encounter Summary ---
Author Organization [employer] Address [address] [facility] [address] 7t [place] [address] Care Team Providers Care Vp Clinical Research Name Role Phone Sariah Vickers Primary Care Provider [phone] Yuri Pierre PharmD Unavailable [phone] Basilio Hall MD Unavailable [phone] Ron Preciado MD Unavailable [phone] Reason for Visit * Reason Comments Med Refill Encounter Details Date Type Department Care Team (Late st Contact Info) Description 06/26/2024 Refill [facility] CH[facility] MED & PEDS [address] [place] [address] Sariah Vickers ANP 230 [place] [address] Cervicalgia Social History Tobacco Use Types Packs/Day [...] Description 07/15/2024 1:00 PM EDT Office Visit [facility] MEDICINE [address] [place] [address] Sariah Vickers, ANP 230 [place] [address] 07/16/2024 3:00 PM EDT Office Visit [facility] ADULT DENTAL [address] [place] [address] Yogesh Gomez, DMD 230 [place] [address] 08/04/2024 10:00 AM EDT Medication Management [facility] MEDICINE [address] [place] [address] Yuri Pierre, PharmD 230 [place] [address] 08/04/2024 1:00 PM EDT Office Visit [facility] ADULT DENTAL [address] [place] [address] Nuvia Duarte 230 [place] [address] 09/03/2024 2:00 PM EDT Office Visit [facility] MEDICINE 230 [place] [address] Hallie Tapia MD 230 [place] [address] 09/27/2024 2:00 PM EDT Office Visit [facility] OPTOMETRY [address] [place] [address] Luisa Martinez, OD 230 [place] [address] 10/01/2024 11:00 AM EDT Clinical Support [facility] MEDICINE 230 [place] [address] Azeb Hall RN 505 [place] [address] documented as of this encounter Goals Goal Patient Goal Type Associated Problems Recent Progress Patient-Stated? Author Blood Pressure < 140/90 Blood Pressure 142/80(2024 11:35 AM EDT) No PhanisAida Cheng, PharmD Record Your Blood Sugar As Directed General No Phanis-Aida Medina, PharmD Hemoglobin A1c < 7 Result Component 6.6( 3:08 PM EDT) No PhanisAida Cheng PharmD documented as of this encounter Visit Diagnoses Diagnosis Cervicalgia documented in this encounter Additional Health Concerns Assessment Noted Time PHQ-9 Depression Total Score: 12 024 2:58 PM EDT documented as of this encounter Care Teams Vp Clinical Research Relationship Specialty Start Date End Date Sariah Vickers ANP [address] [place] [address] PCP - General Family Medicine 09/23/19 Yuri Pierre, MikeD [address] [place] [address] Pharmacist Internal Medicine 05/05/24 Basilio Hall MD [address] [place] [address] Cardiology 05/17/24 Ron Preciado MD [address] [place] [address] Pulmonary Disease 05/17/24 documented as of this encounter
--- OUTSIDE RECORDS SUMMARY | 2024-07-05 11:44 | XMS_ITS | Encounter Summary ---
Author Organization [employer] Address 75 [facility] 7t [place] [address] Care Team Providers Care Lay Health Advocate Name Role Phone Sariah Vickers Primary Care Provider [phone] Yuri Pierre PharmD Unavailable [phone] Basilio Hall MD Unavailable Ron Preciado MD Unavailable [phone] Reason for Visit * Reason Onset Date Comments Durable Medical Equipment 03/15/2022 Encounter Details Date Type Department Care Team (Late st Contact Info) Description 03/15/2022 Telephone [facility] MEDICINE [address] [place] [address] Sariah Vickers ANP 230 [place] [address] Durable Medical Equipment Social History Tobacco Use [...] Description 07/15/2024 1:00 PM EDT Office Visit [facility] MEDICINE [address] [place] [address] Sariah Vickers, KAYLEE 230 [place] [address] 07/16/2024 3:00 PM EDT Office Visit [facility] ADULT DENTAL [address] [place] [address] Yogesh Gomez, JOHN [address] [place] [address] 08/04/2024 10:00 AM EDT Medication Management [facility] MEDICINE [address] [place] [address] Yuri Pierre, PharmD 230 [place] [address] 08/04/2024 1:00 PM EDT Office Visit [facility] ADULT DENTAL [address] [place] [address] Nuvia Duarte 230 [place] [address] 09/03/2024 2:00 PM EDT Office Visit [facility] MEDICINE [address] [place] [address] Hallie Tapia MD 230 [place] [address] 09/27/2024 2:00 PM EDT Office Visit [facility] OPTOMETRY [address] [place] [address] Luisa Martinez, OD 230 [place] [address] 10/01/2024 11:00 AM EDT Clinical Support [facility] MEDICINE [address] [place] [address] Azeb Hall, MARTIN 505 [place] [address] documented as of this encounter Visit Diagnoses Not on filedocumented in this encounter Care Teams Lay Health Advocate Relationship Specialty Start Date End Date Sariah Vickers ANP 230 [place] [address] PCP - General Family Medicine 09/23/19 Yuri Pierre, Dileep [address] [place] [address] Pharmacist Internal Medicine 05/05/24 Basilio Hall MD [address] [place] [address] Cardiology 05/17/24 Ron Preciado MD [address] [place] [address] Pulmonary Disease 05/17/24 documented as of this encounter
--- OUTSIDE RECORDS SUMMARY | 2024-07-05 11:44 | XMS_ITS | Encounter Summary ---
Author Organization [employer] Address 75 [facility] 7t [place] [address] Care Team Providers Care Gear Technician Name Role Phone Sariah Vickers Primary Care Provider [phone] Yuri Pierre PharmD Unavailable [phone] Basilio Hall MD Unavailable oRn Preciado MD Unavailable [phone] Reason for Visit * Reason Comments Med Refill Encounter Details Date Type Department Care Team (Late st Contact Info) Description 09/13/2022 Refill [facility] CHC MED & PEDS [address] [place] [address] Sariah Vickers ANP 230 [place] [address] Severe persistent allergic asthma without complication Social [...] Visit [facility] MEDICINE 230 [place] [address] Sariah Vickers ANP 230 [place] [address] 07/16/2024 3:00 PM EDT Office Visit [facility] ADULT DENTAL 230 [place] [address] Yogesh Gomez, JOHN 230 [place] [address] 08/04/2024 10:00 AM EDT Medication Management [facility] MEDICINE [address] [place] [address] Yuri Pierre, PharmD 230 [place] [address] 08/04/2024 1:00 PM EDT Office Visit [facility] ADULT DENTAL [address] [place] [address] Nuvia Duarte 230 [place] [address] 09/03/2024 2:00 PM EDT Office Visit [facility] MEDICINE 230 [place] [address] Hallie Tapia MD 230 [place] [address] 09/27/2024 2:00 PM EDT Office Visit [facility] OPTOMETRY [address] [place] [address] Luisa Martinez, SANDHYA 230 [place] [address] 10/01/2024 11:00 AM EDT Clinical Support [facility] MEDICINE [address] [place] [address] Azeb Hall, RN 505 [place] [address] documented as of this encounter Visit Diagnoses Diagnosis Severe persistent allergic asthma without complication documented in this encounter Care Teams Gear Technician Relationship Specialty Start Date End Date Sariah Vickers ANP 230 [place] [address] PCP - General Family Medicine 09/23/19 Yuri Pierre, MikeD 230 [place] [address] Pharmacist Internal Medicine 05/05/24 Basilio Hall MD [address] [place] [address] Cardiology 05/17/24 Ron Preciado MD [address] [place] [address] Pulmonary Disease 05/17/24 documented as of this encounter
--- OUTSIDE RECORDS SUMMARY | 2024-07-05 11:44 | XMS_ITS | Encounter Summary ---
Author Organization [employer] Address 75 [facility] 7t [place] [address] Care Team Providers Care Barrel Rib Matting 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 Name Role Phone Sariah Vickers Primary Care Provider [phone] Yuri Pierre PharmD Unavailable [phone] Basilio Hall MD Unavailable [phone] Ron Preciado MD Unavailable [phone] Reason for Visit * Reason Comments Med Refill Encounter Details Date Type Department Care Team (Late st Contact Info) Description 03/03/2022 Refill [facility] MEDICINE 230 [place] [address] Sariah Vickers ANP 230 [place] [address] Social History Tobacco Use Types Packs/Day Years [...] Description 07/15/2024 1:00 PM EDT Office Visit [facility] MEDICINE [address] [place] [address] Sariah Vickers ANP 230 [place] [address] 07/16/2024 3:00 PM EDT Office Visit [facility] ADULT DENTAL [address] [place] [address] Yogesh Gomez DMD 230 [place] [address] 08/04/2024 10:00 AM EDT Medication Management [facility] MEDICINE [address] [place] [address] Yuri Pierre, PharmD 230 [place] [address] 08/04/2024 1:00 PM EDT Office Visit [facility] ADULT DENTAL [address] [place] [address] Nuvia Duarte [address] [place] [address] 09/03/2024 2:00 PM EDT Office Visit [facility] MEDICINE [address] [place] [address] Hallie Tapia MD 230 [place] [address] 09/27/2024 2:00 PM EDT Office Visit [facility] OPTOMETRY [address] [place] [address] Luisa Martinez, OD 230 [place] [address] 10/01/2024 11:00 AM EDT Clinical Support [facility] MEDICINE [address] [place] [address] Azeb Hall, RN 505 [place] [address] documented as of this encounter Visit Diagnoses Not on filedocumented in this encounter Care Teams Barrel Rib Matting 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 Relationship Specialty Start Date End Date Sariah Vickers ANP [address] [place] [address] PCP - General Family Medicine 09/23/19 Yuri Pierre, MikeD [address] [place] [address] Pharmacist Internal Medicine 05/05/24 Basilio Hall MD [address] [place] [address] Cardiology 05/17/24 Ron Preciado MD [address] [place] [address] Pulmonary Disease 05/17/24 documented as of this encounter
--- OUTSIDE RECORDS SUMMARY | 2024-07-05 11:44 | XMS_ITS | Encounter Summary ---
Author Organization [employer] Address 75 [facility] 7t [place] [address] Care Team Providers Care Paper Baler Name Role Phone Sariah Vickers Primary Care Provider Yuri Pierre PharmD Unavailable [phone] Basilio Hall MD Unavailable [phone] Ron Preciado MD Unavailable [phone] Encounter Details Date Type Department Care Team (Latest Contact Info) Description 06/20/2021 Abstract [facility] CONVERSIONS Dental, Provider, DDS [...] Description 07/15/2024 1:00 PM EDT Office Visit [facility] MEDICINE 230 [place] [address] Sariah Vickers ANP 230 [place] [address] 07/16/2024 3:00 PM EDT Office Visit [facility] ADULT DENTAL 230 [place] [address] Yogesh Gomez, JOHN 230 [place] [address] 08/04/2024 10:00 AM EDT Medication Management [facility] MEDICINE 230 [place] [address] Yuri Pierre, PharmD 230 [place] [address] 08/04/2024 1:00 PM EDT Office Visit [facility] ADULT DENTAL 230 [place] [address] Brendan Duartearis 230 [place] [address] 09/03/2024 2:00 PM EDT Office Visit [facility] MEDICINE [address] [place] [address] Hallie Tapia MD 230 [place] [address] 09/27/2024 2:00 PM EDT Office Visit [facility] OPTOMETRY [address] [place] [address] Luisa Martinez, SANDHYA 230 [place] [address] 10/01/2024 11:00 AM EDT Clinical Support [address] [address] Azeb Hall, RN 505 [place] [address] documented as of this encounter Visit Diagnoses Not on filedocumented in this encounter Care Teams Paper Baler Relationship Specialty Start Date End Date Sariah Vickers ANP [address] [place] [address] PCP - General Family Medicine 09/23/19 Yuri Pierre, PharmD [address] [place] [address] Pharmacist Internal Medicine 05/05/24 Basilio Hall MD 596 [place] [address] Cardiology 05/17/24 Ron Preciado MD [address] [place] [address] Pulmonary Disease 05/17/24 documented as of this encounter
--- OUTSIDE RECORDS SUMMARY | 2024-07-05 11:45 | XMS_ITS | Encounter Summary ---
Author Organization [employer] Address 75 [facility] 7t [place] [address] Care Team Providers Care Radial Drill Operator For Plastic Name Role Phone Sariah Vickers Primary Care Provider Yuri Pierre PharmD Unavailable [phone] Basilio Hall MD Unavailable [phone] Ron Preciado MD Unavailable [phone] Reason for Visit * Reason Onset Date Comments Med Refill 03/04/2023 Encounter Details Date Type Department Care Team (Late st Contact Info) Description 03/04/2023 Telephone [facility] MEDICINE [address] [place], [place] [phone] Sariah Vickers ANP 230 [place], [place] [phone] Med Refill Social History Tobacco Use Types [...] your housing situation today? I have rodrigo donte 12/04/[address] you li [...] 50 MG tablet To be sent to: [facility] [place], [place] - [address] [place] [address] documented in this encounter Plan of Treatment Upcoming Encounters Date Type Department Care Team (Late st Contact Info) Description 07/15/2024 1:00 PM EDT Office Visit [facility] MEDICINE [address] [place] [address] Sariah Vickers, ANP 230 [place] [address] 07/16/2024 3:00 PM EDT Office Visit [facility] ADULT DENTAL [address] [place] [address] Yogesh Gomez, DMD [address] [place] [address] 08/04/2024 10:00 AM EDT Medication Management [facility] MEDICINE [address] [place] [address] Yuri Pierre, PharmD 230 [place] [address] 08/04/2024 1:00 PM EDT Office Visit [facility] ADULT DENTAL [address] [place] [address] Felicia, Nuvia [address] [place] [address] 09/03/2024 2:00 PM EDT Office Visit [facility] MEDICINE [address] [place] [address] Hallie Tapia MD 230 [place] [address] 09/27/2024 2:00 PM EDT Office Visit [facility] OPTOMETRY [address] [place] [address] JuanLuisa jolley, OD 230 [place] [address] 10/01/2024 11:00 AM EDT Clinical Support [facility] MEDICINE [address] [place] [address] Azeb Hall, MARTIN 505 [place] [address] documented as of this encounter Goals Goal [...] on filedocumented in this encounter Care Teams Radial Drill Operator For Plastic Relationship Specialty Start Date End Date Sariah Vickers ANP [address] [place] [address] PCP - General Family Medicine 09/23/19 Yuri Pierre, PharmD 230 [place] [address] Pharmacist Internal Medicine 05/05/24 Basilio Hall MD [address] [place] [address] Cardiology 05/17/24 Ron Preciado MD [address] [place] [address] Pulmonary Disease 05/17/24 documented as of this encounter
--- OUTSIDE RECORDS SUMMARY | 2024-07-05 11:45 | XMS_ITS | Encounter Summary ---
Author Organization [employer] Address 75 [facility] 7t [place] [address] Care Team Providers Care Grinding Operator Name Role Phone Sariah Vickers Primary Care Provider [phone] Yuri Pierre PharmD Unavailable [phone] Basilio Hall MD Unavailable [phone] Ron Preciado MD Unavailable [phone] Reason for Visit * Reason Comments Med Refill Encounter Details Date Type Department Care Team (Late st Contact Info) Description 02/28/2023 Refill [facility] MEDICINE 230 [place] [address] Sariah Vickers ANP [address] [place] [address] Cervicalgia Social History Tobacco Use Types Packs/Day [...] Description 07/15/2024 1:00 PM EDT Office Visit [facility] MEDICINE [address] [place] [address] Sariah Vickers, ANP 230 [place] [address] 07/16/2024 3:00 PM EDT Office Visit [facility] ADULT DENTAL [address] [place] [address] Yogesh Gomez, JOHN 230 [place] [address] 08/04/2024 10:00 AM EDT Medication Management [facility] MEDICINE [address] [place] [address] Yuri Pierre, PharmD [address] [place] [address] 08/04/2024 1:00 PM EDT Office Visit [facility] ADULT DENTAL [address] [place] [address] Nuvia Duarte 230 [place] [address] 09/03/2024 2:00 PM EDT Office Visit [facility] MEDICINE [address] [place] [address] [phone] Hallie Tapia MD 230 [place] [address] 09/27/2024 2:00 PM EDT Office Visit [facility] OPTOMETRY [address] [place] [address] Juan, Luisa, OD 230 [place] [address] 10/01/2024 11:00 AM EDT Clinical Support [facility] MEDICINE 230 [place] [address] Azeb Hall, MARTIN 505 [place] [address] documented as of this encounter Goals Goal Patient Goal Type Associated Problems Recent Progress Patient-Stated? Author Blood Pressure < 140/90 Blood Pressure 142/80(2024 11:35 AM EDT) No Aida Ragland, PharmD Record Your Blood Sugar As Directed General No Aiad Ragland, PharmD Hemoglobin A1c < 7 Result Component 6.6( 3:08 PM EDT) No Aida Ragland, PharmD documented as of this encounter Visit Diagnoses Diagnosis Cervicalgia documented in this encounter Care Teams Grinding Operator Relationship Specialty Start Date End Date Sariah Vickers ANP [address] [place] [address] PCP - General Family Medicine 09/23/19 Yuri Pierre, PharmD [address] [place] [address] Pharmacist Internal Medicine 05/05/24 Basilio Hall MD [address] [place] [address] Cardiology 05/17/24 Ron Preciado MD [address] [place] [address] Pulmonary Disease 05/17/24 documented as of this encounter
--- OUTSIDE RECORDS SUMMARY | 2024-07-05 11:45 | XMS_ITS | Encounter Summary ---
Author Organization [employer] Address 75 [facility] 7t [place] [address] Care Team Providers Care Mother Superior Name Role Phone Sariah Vickers Primary Care Provider [phone] Yuri Pierre PharmD Unavailable [phone] Basilio Hall MD Unavailable [phone] Ron Preciado MD Unavailable [phone] Reason for Visit * Reason Comments Med Refill Encounter Details Date Type Department Care Team (Late st Contact Info) Description 07/10/2022 Refill [facility] MEDICINE [address] [place] [address] Sariah Vickers ANP [address] [place] [address] Vertigo Social History Tobacco Use Types Packs/Day [...] Description 07/15/2024 1:00 PM EDT Office Visit [facility] MEDICINE [address] [place] [address] Sariah Vickers ANP [address] [place] [address] 07/16/2024 3:00 PM EDT Office Visit [facility] ADULT DENTAL [address] [place] [address] Yogesh Gomez, JOHN [address] [place] [address] 08/04/2024 10:00 AM EDT Medication Management [facility] [address] [place] [address] Yuri Pierre, PharmD [address] [place] [address] 08/04/2024 1:00 PM EDT Office Visit [facility] ADULT DENTAL [address] [place] [address] Nuvia Duarte [address] [place] [address] 09/03/2024 2:00 PM EDT Office Visit [facility] [address] [place] [address] Hallie Tapia MD [address] [place] [address] 09/27/2024 2:00 PM EDT Office Visit [facility] OPTOMETRY [address] [place] [address] Luisa Martinez, SANDHYA [address] [place] [address] 10/01/2024 11:00 AM EDT Clinical Support [address] [address] Azeb Hall, RN [address] [place] [address] documented as of this encounter Visit Diagnoses Diagnosis Vertigo Dizziness and giddiness documented in this encounter Care Teams Mother Superior Relationship Specialty Start Date End Date Sariah Vickers ANP [address] [place] [address] PCP - General Family Medicine 09/23/19 Yuri Pierre, MikeD [address] [place] [address] Pharmacist Internal Medicine 05/05/24 Basilio Hall MD [address] [place] [address] Cardiology 05/17/24 Ron Preciado MD [address] [place] [address] Pulmonary Disease 05/17/24 documented as of this encounter
--- OUTSIDE RECORDS SUMMARY | 2024-07-05 11:45 | XMS_ITS | Clinical Summary ---
Author Organization [address] [facility] Address [address] [place] [address] Phone Care Team Providers Care Tissue Coordinator Name Role Phone Sariah Vickers NP Primary Care Provider [phone] Social History Tobacco Use Types Packs/Day Years [...] age to complete this topic Care Teams Tissue Coordinator Relationship Specialty Start Date End Date Sariah Vickers NP [address] [place] [phone] PCP - General 12/03/23
--- OUTSIDE RECORDS SUMMARY | 2024-07-05 11:45 | XMS_ITS | Encounter Summary ---
Author Organization [employer] Address 75 [facility] 7t [place] [address] Care Team Providers Care Sourcing Coordinator Name Role Phone Sariah Vickers Primary Care Provider [phone] Yuri Pierre PharmD Unavailable [phone] Basilio Hall MD Unavailable [phone] Ron Preciado MD Unavailable [phone] Reason for Visit * Reason Comments Med Refill Encounter Details Date Type Department Care Team (Late st Contact Info) Description 12/19/2022 Refill [facility] MEDICINE [address] [place] [address] Sariah Vickers ANP [address] [place] [address] Vertigo Social History Tobacco Use Types Packs/Day [...] [facility] MED[facility]INE [address] [place] [address] Sariah Vickers, ANP [address] [place] [address] 07/16/2024 3:00 PM EDT Office Visit [facility] ADULT DENTAL [address] [place] [address] Yogesh Gomez, JOHN [address] [place] [address] 08/04/2024 10:00 AM EDT Medication Management [facility] MEDICINE [address] [place] [address] Yuri Pierre, PharmD [address] [place] [address] 08/04/2024 1:00 PM EDT Office Visit [facility] ADULT DENTAL [address] [place] [address] Nuvia Duarte [address] [place] [address] 09/03/2024 2:00 PM EDT Office Visit [facility] MEDICINE [address] [place] [phone] Hallie Tapia MD [address] [place] [address] 09/27/2024 2:00 PM EDT Office Visit [facility] OPTOMETRY [address] [place] [address] Juan, Luisa, OD [address] [place] [address] 10/01/2024 11:00 AM EDT Clinical Support [facility] MEDICINE [address] [place] [address] Azeb Hall, MARTIN [address] [place] [address] documented as of this encounter Goals Goal [...] giddiness documented in this encounter Care Teams Sourcing Coordinator Relationship Specialty Start Date End Date Sariah Vickers ANP [address] [place] [address] PCP - General Family Medicine 09/23/19 Yuri Pierre, MikeD [address] [place] [address] Pharmacist Internal Medicine 05/05/24 Basilio Hall MD [address] [place] [address] Cardiology 05/17/24 Ron Preciado MD [address] [place] [address] Pulmonary Disease 05/17/24 documented as of this encounter
--- OUTSIDE RECORDS SUMMARY | 2024-07-05 11:45 | XMS_ITS | Encounter Summary ---
Author Organization [employer] Address 75 [facility] 7t [place] [address] Care Team Providers Care Silviculturist Name Role Phone Sariah Vickers Primary Care Provider [phone] Yuri Pierre PharmD Unavailable [phone] Basilio Hall MD Unavailable [phone] oRn Preciado MD Unavailable [phone] Reason for Visit * Reason Comments Med Refill Encounter Details Date Type Department Care Team (Late st Contact Info) Description 05/09/2023 Refill [facility] MED[facility] [address] [place] [address] Sariah Vickers ANP [address] [place] [address] High cholesterol Social History Tobacco Use Types [...] Description 07/15/2024 1:00 PM EDT Office Visit [facility] MED[facility]INE [address] [place] [address] Sariah Vickers, ANP [address] [place] [address] 07/16/2024 3:00 PM EDT Office Visit [facility] ADULT DENTAL [address] [place] [address] Yogesh Gomez, JOHN [address] [place] [address] 08/04/2024 10:00 AM EDT Medication Management [facility] [address] [place] [address] Yuri Pierre, PharmD [address] [place] [address] 08/04/2024 1:00 PM EDT Office Visit [facility] ADULT DENTAL [address] [place] [address] Nuvia Duarte [address] [place] [address] 09/03/2024 2:00 PM EDT Office Visit [facility] MED[facility] [address] [place] [address] Hallie Tapia MD [address] [place] [address] 09/27/2024 2:00 PM EDT Office Visit [facility] OPTOMETRY [address] [place] [address] Juan, Luisa, OD [address] [place] [address] 10/01/2024 11:00 AM EDT Clinical Support [facility] [address] [place] [address] Azeb Hall, MARTIN [address] [place] [address] documented as of this encounter Goals Goal Patient Goal Type Associated Problems Recent Progress Patient-Stated? Author Blood Pressure < 140/90 Blood Pressure 142/80(2024 11:35 AM EDT) No Aida Ragland, PharmD Record Your Blood Sugar As Directed General No Aida Ragland, PharmD Hemoglobin A1c < 7 Result Component 6.6( 3:08 PM EDT) No Aida Ragland PharmD documented as of this encounter Visit Diagnoses Diagnosis High cholesterol Pure hypercholesterolemia documented in this encounter Care Teams Silviculturist Relationship Specialty Start Date End Date Sariah Vickers ANP [address] [place] [address] PCP - General Family Medicine 09/23/19 Yuri Pierre, MikeD [address] [place] [address] Pharmacist Internal Medicine 05/05/24 Basilio Hall MD [address] [place] [address] Cardiology 05/17/24 Ron Preciado MD [address] [place] [phone] Pulmonary Disease 05/17/24 documented as of this encounter
--- OUTSIDE RECORDS SUMMARY | 2024-07-05 11:45 | XMS_ITS | Clinical Summary ---
Author Organization [facility] Address [address] [facility] [address] [place] [address] Care Team Providers Care Entry Specialist Name Role Phone Anthony Ruiz KAYLEE Primary Care Provider [phone] Yuri Pierre PharmD Unavailable [phone] Basilio Hall MD Unavailable Ron Preciado MD Unavailable [phone] Allergies Active Allergy Reactions Criticality Noted [...] tablet by mouth in the morning. Active Lactobacillus-Inu namrata ([facility]) capsule TAKE 1 CAPSULE BY MOUTH EVERY DAY 023 Active TRUEplus Lancets 33G misc TEST BLOOD SUGAR THREE TIMES DAILY 023 Active Xolair 150 MG/ML injection Reconstitute as directed and inject subcutaneously once weekly (administered in office) 023 Active pyridoxine (Vitamin B-6) 100 MG tablet TAKE 1 TABLET BY MOUTH ONCE DAILY 023 Active naloxone (Narcan) 4 mg/0.1 mL nasal sprayIndications: Chronic bilateral low back pain, unspecified whether sciatica present Administer 1 spray (4 mg) into affected nostril(s) if needed for opioid reversal. 2 each 023 Active senna (Senokot) 8.6 MG tabletIndications :Constipation, unspecified constipation type TAKE 2 TABLETS BY MOUTH EVERY DAY AT BEDTIME FOR CONSTIPATION 180 tablet 023 Active Ventolin HFA 108 (90 Base) MCG/ACT inhalerIndication s:Severe persistent allergic asthma without complication INHALE 2 PUFFS BY MOUTH EVERY 4 TO 6 HOURS NEEDED 18 g 2 023 Active Combivent Respimat 20-100 MCG/ACT inhaler INHALE 1 PUFF FOUR TIMES DAILY 023 Active Misc. Devices (Pulse Oximeter For Finger) misc 1 each 2 times daily. 1 each 023 Active Baqsimi Two Pack 3 MG/DOSE nasal powderIndications :Type 2 diabetes mellitus with diabetic neuropathy, with long-term current use of insulin ([facility]) USE 1 SPRAY (3MG) IN ONE NOSTRIL FOR A PATIENT WITH SEVERE HYPOGLYCEMIA WHO IS NOT RESPONSIVE AND UNABLE SELF-TREAT WITH GLUCOSE. AFTERWARDS TURN ON SIDE. MAY REPEAT IN 15MINUTES IF PATIENT DOES NOT RESPOND. 2 each 1 024 Active insulin lispro (HumaLOG KWIKPEN) 100 UNIT/ML injectionIndicati ons:Type 2 diabetes mellitus with hyperlipidemia (CMS/HCC) ([facility]) Inject 2 Units under the skin with breakfast, with lunch, and with evening meal. As needed as directed by provider 6 mL 1 024 Active Diclofenac Sodium 1 % gelIndications:Ch ronic bilateral low back pain, unspecified whether sciatica present APPLY 2 GRAMS TOPICALLY TO AFFECTED AREA(S) ONCE DAILY NEEDED FOR PAIN 100 g 1 024 Active glucose 4 g chewable tabletIndications :Type 2 diabetes mellitus with hyperlipidemia ([facility]) ([facility]) CHEW 4 TABLETS BY MOUTH NEEDED LOW FOR BLOOD SUGAR 50 tablet 12 024 Active Alcohol Swabs (Alcohol Prep) 70 % pads USE DAILY DIRECTED 100 each 11 024 Active Multiple Vitamins-Minerals (CertaVite/Antiox idants) tabletIndications :Healthcare maintenance TAKE 1 TABLET BY MOUTH EVERY MORNING 90 tablet 3 024 Active fluticasone (Flonase) 50 MCG/ACT nasal spray INSTILL 2 SPRAYS IN EACH NOSTRIL ONCE DAILY IN THE MORNING 16 g 3 025 Active Fluticasone-Salme terol 250-50 MCG/ACT aerosol powderIndications :Severe persistent asthma without complication INHALE 1 PUFF BY MOUTH TWICE DAILY RINSE MOUTH AFTER USING. 60 each 5 025 Active Continuous Glucose Daytime Caregiver (First Stop HealthStyle Jalil 2 [facility]) deviceIndications :Type 2 diabetes mellitus with hyperlipidemia ([facility]) ([facility]) Use to check blood sugar at least every 8 hours 1 each 025 Active gabapentin (Neurontin) 400 MG capsuleIndication s:Chronic SI joint pain TAKE 1 CAPSULE BY MOUTH AT BEDTIME 30 capsule 2 025 Active lidocaine (Lidoderm) 5 % patchIndications: Chronic bilateral low back pain, unspecified whether [...] Needle Lorna U/F 32G X 4 MM miscIndications:T ype 2 diabetes mellitus with hyperlipidemia (CMS/HCC) ([facility]) USE DIRECTED THREE TIMES DAILY 100 each 5 025 Active Continuous Glucose Sensor (FreeStyle Jalil 2 Plus Sensor) miscIndications:T ype 2 diabetes mellitus with hyperlipidemia (CMS/HCC) ([facility]) Apply 1 each topically every 15 days. Use to check blood sugar every 8 hours as directed. 2 each Active enalapril (Vasotec) 20 MG tabletIndications :Essential hypertension TAKE 1 TABLET BY MOUTH EVERY MORNING 30 tablet 1 025 Active amLODIPine (Norvasc) 10 MG tablet TAKE 1 TABLET BY MOUTH EVERY EVENING 90 tablet 1 025 Active montelukast (Singulair) 10 MG tablet TAKE 1 TABLET BY MOUTH EVERY EVENING 90 tablet 025 Active levothyroxine (Synthroid, Levoxyl) 75 MCG tabletIndications :Hypothyroidism, unspecified TAKE 1 TABLET BY MOUTH EVERY MORNING 90 tablet 025 Active ipratropium-albut keyon (Duo-Neb) 0.5-2.5 mg/3 mL nebulizer solutionIndicatio ns:Severe persistent asthma without complication INHALE 1 AMPULE USING A NEBULIZER EVERY 6 HOURS NEEDED 90 mL 025 Active acetaminophen (Tylenol) 325 MG tabletIndications :Neck pain TAKE 1 TO 2 TABLETS BY MOUTH EVERY 6 HOURS NEEDED 60 tablet 025 Active Continuous Glucose Daytime Caregiver (FreeStyle Jalil 3 [facility]) device 1 each Once per day. Use as directed for CGM 1 each 025 Active Continuous Glucose Sensor (FreeStyle Jalil 3 Plus Sensor) misc 1 each every 15 days. Apply 1 every 15 days as directed for CGM 2 each Active Dulaglutide (Trulicity) 0.75 MG/0.5ML solution auto-injectorIndi cations:Type 2 diabetes mellitus with hyperlipidemia (CMS/HCC) ([facility]) Inject 0.75 mg under the skin 1 (one) time per week. 0.5 mL 025 Active Sodium Fluoride (PreviDent 5000 Booster Plus) 1.1 % paste Apply 1 Application. to teeth 2 times daily. 112 g 3 025 Active olopatadine (Pataday) 0.2 % ophthalmic solution Administer 1 drop into both eyes Once per day. 2.5 mL 5 025 Active traMADol (Ultram) 50 MG tabletIndications :Cervicalgia TAKE 1 TABLET BY MOUTH EVERY TWELVE HOURS NEEDED FOR SEVERE PAIN 60 tablet 025 Active Ozempic, 0.25 or 0.5 MG/DOSE, 2 MG/3ML solution pen-injectorIndic ations:Type 2 diabetes mellitus with hyperlipidemia (CMS/HCC) ([facility]) INJECT 0.5 MG SUBCUTANEOUSLY EVERY 7 DAYS IN THE ABDOMEN, THIGHS, OR UPPER ARM, ROTATE INJECTION SITES. 3 mL 1 024 2024 Discontinued traMADol (Ultram) 50 MG tabletIndications :Cervicalgia TAKE 1 TABLET BY MOUTH EVERY TWELVE HOURS NEEDED FOR SEVERE PAIN 60 tablet 025 2024 Discontinued acetaminophen (Tylenol) 500 MG tablet Take 1 tablet (500 mg) by mouth every 8 (eight) hours if needed for mild pain or moderate pain for up to 5 days. 15 tablet 025 2024 olopatadine (Pataday) 0.2 % ophthalmic solution Administer 1 drop into both eyes Once per day. 2.5 mL 5 025 2024 Discontinued Active Problems Problem Noted Date Diagnosed Date Diabetic hypoglycemia 06/21/2024 Assessment & Plan (06/21/2024 6:24 PM EDT): Extensive counseling about small frequent meals high in protein and vegetables to avoid hypoglycemia done today After extensive discussion patient decided to switch her Ozempic to Trulicity for this reason I discontinue her Ozempic and I put her on Trulicity and I advised to follow-up with PCP and pharmacy CDTM Chest discomfort 06/09/2024 Assessment & Plan (06/09/2024 1:52 PM EDT): Counseling done today Patient is being follow by cardiology closely I advised not to miss any appointment EKG NSR, no ST segment changes Long-term current use of opiate analgesic 2024 [...] her family. She will continue services with [facility] for OP therapy and psychiatry services. clinician will be available if needed during next medical appointment. PLAN: (check all that apply) Continue with current services (defined as services in the past 12 months) . Pt is engaged with OP therapy and psychiatry services with [facility] @ [facility] Excessive attrition of teeth, generalized 2023 Right [...] her family. She will continue services with [facility] for OP therapy and psychiatry services. clinician will be available if needed during next medical appointment. PLAN: (check all that apply) Continue with current services (defined as services in the past 12 months) . Pt is engaged with OP therapy and psychiatry services with [facility] @ [facility] Fibromyalgia 07/31/2022 Asthma-COPD overlap syndrome 07/31/2022 Right [...] for possible plantar fasciitis -referred today to pasting inspector x ongoing discomfort -may need orthopedic shoes [...] 01/19/2015 Anxiety state 08/12/2011 Assessment & Plan (06/09/2024 1:53 PM EDT): Counseling done, [facility] was call Assessment & Plan (07/30/2023 12:52 PM EDT): [...] individual therapy and psychiatry with [facility] at [facility]. Sees psych provider every two months and therapist bi-weekly. Pt will reach out to clinician as needed. Assessment & Plan (04/10/2023 11:08 AM EST): PLAN: (check all that apply) Behavioral Health Integration Plan Patient Self Plan Patient to reach out to [facility] team as needed Assessment & Plan (08/07/2022 [...] Patient may request to speak with a [facility] during next PCP visit, if needed [...] Encounters Date Type Department Care Team Description 07/02/2024 11:00 AM EDT Clinical Support [facility] [address] [place] [address] Azeb Hall, MARTIN Spondylosis of lumbar region without myelopathy or radiculopathy 07/02/2024 Travel 06/29/2024 1:00 PM EDT Office Visit [facility] [address] [place] [address] Juan, Luisa, OD Allergic conjunctivitis of both eyes (Primary Dx) 06/29/2024 Refill [facility] [address] [place] [address] Anthony Ruiz ANP Cervicalgia 06/29/2024 Travel 06/28/2024 11:30 AM EDT Office Visit [facility] [address] [place] [address] Yogesh Gomez DMD 06/26/2024 Refill [facility] [address] [place] [address] Anthony Ruiz ANP Cervicalgia 06/22/2024 Orders Only [facility] [address] [place] [phone] Anthony Ruiz ANP 06/22/2024 Telephone [facility] [address] [place] [phone] Mirna Barnes MD 06/21/2024 5:40 PM EDT Office Visit [facility] [address] [place] [phone] Mirna Barnes MD Diabetic hypoglycemia ([facility]) (Primary Dx); Type 2 diabetes mellitus with hyperlipidemia ([facility]/H[facility]) ([facility]) 06/21/2024 Telephone [facility] [address] [place] [phone] Anthony Ruiz ANP Results 06/21/2024 Telephone [facility] [address] [place] [phone] Anthony Ruiz ANP Nurse Triage 06/17/2024 Refill [facility] [address] [place] [phone] Anthony Ruiz ANP Neck pain 06/15/2024 Orders Only GENERIC EXTERNAL DATA DEPARTMENT Provider, Generic External Data 06/11/2024 Refill [facility] [address] [place] [phone] Anthony Ruiz ANP 06/09/2024 3:00 PM EDT Office Visit [facility] [address] [place] [phone] Mirna Barnes MD Chest discomfort (Primary Dx); Anxiety state 06/09/2024 Telephone [facility] [address] [place] [phone] Anthony Ruiz ANP Results 06/04/2024 Telephone [facility] [address] [place] [phone] Anthony Ruiz ANP Call Back Request 06/03/2024 Refill [facility] [address] [place] [phone] Chava Presley MD Neck pain 06/03/2024 Refill [facility] [address] [place] [address] Debra Faye MD Severe persistent asthma without complication 06/01/2024 Telephone [facility] [address] [place] [phone] Anthony Ruiz ANP Prior Authorization 06/01/2024 Refill [facility] [address] [place] [address] Anthony Ruiz ANP Hypothyroidism, unspecified 05/31/2024 Telephone [facility] [address] [place] [phone] Yohana Quinn RN Medication Question 05/31/2024 Orders Only [facility] [address] [place] [phone] Anthony Ruiz ANP OKEEFE (nonalcoholic steatohepatitis) (Primary Dx) 05/30/2024 Orders Only GENERIC EXTERNAL DATA DEPARTMENT Provider, Generic External Data 05/27/2024 Orders Only GENERIC EXTERNAL DATA DEPARTMENT Provider, Generic External Data 05/27/2024 Refill [facility] [address] [place] [phone] Anthony Ruiz ANP Essential hypertension 05/26/2024 Refill [facility] [address] [place] [address] Anthony Ruiz ANP Cervicalgia 05/23/2024 Refill [facility] [address] [place] [address] Anthony Ruiz ANP Cervicalgia 05/21/2024 Telephone [facility] [address] [place] [phone] Anthony Ruiz ANP 05/17/2024 Refill [facility] [address] [place] [phone] Anthony Ruiz ANP Type 2 diabetes mellitus with hyperlipidemia ([facility]CC) 05/12/2024 Telephone [facility] [address] [place] [phone] Yohana Quinn, RN CGM Documentation 05/07/2024 Telephone [facility] [address] [place] [phone] Anthony Ruiz ANP Prior Authorization 05/04/[address] [phone] Anthony Ruiz ANP Prior Authorization 05/02/[address] [address] Anthony Ruiz ANP High cholesterol 04/29/[address] [address] Anthony Ruiz ANP Referral 04/29/2024 Travel 04/26/2024 Refill [facility] [address] [place] [address] Anthony Ruiz ANP Cervicalgia 04/23/2024 11:30 AM EST Clinical Support [address] [address] Azeb Hall, RN Long-term current use of opiate analgesic 04/23/2024 Telephone [facility] [address] [place] [address] Azeb Hall RN 04/23/2024 Travel 04/21/2024 Telephone [facility] [address] [place] [address] Chava Presley MD 04/20/2024 11:00 AM EST Office Visit [facility] [address] [address] Chava Presley MD Posterior chest pain (Primary Dx); Asthma-COPD overlap syndrome (CMS/HCC); Neck pain 04/20/2024 Orders Only [facility] [address] [place] [address] Chava Presley MD 04/15/2024 1:30 PM EST Office Visit [address] [address] Anthony Ruiz ANP Umbilical hernia without obstruction and without gangrene (Primary Dx); Type 2 diabetes mellitus with hyperlipidemia (CMS/HCC) (CMS/HCC); Acute cough; Severe persistent allergic asthma; Allergy to fish 04/15/2024 Travel 04/12/2024 Orders Only [facility] External Provider, [facility] 04/12/2024 Telephone [facility] [address] [place] [phone] Anthony Ruiz ANP Chart Prep from Last 3 Months Immunizations Immunization Administration Dates Next Due DTaP 11/01/2010 Hep [...] your housing situation today? I have rodrigo sing 06/23/[address] you li [...] Sign Reading Time Taken Comments Blood Pressure 142/80 06/28/2024 11:35 AM EDT Pulse 70 06/28/2024 11:35 AM EDT Temperature 36.3 ??C (97.3 ??F) 06/21/2024 5:30 PM ED T Respiratory Rate 18 06/21/2024 5:30 PM EDT Oxygen Saturation 98% 06/21/2024 5:30 PM EDT Inhaled Oxygen Concentration - - Weight 90.6 kg (199 lb 12.8 oz) 06/21/2024 5:30 PM EDT Height 162.6 cm (5' 4 ) 02/23/2024 2:05 PM EST Body Mass Index 34.3 02/23/2024 2:05 PM EST Plan of Treatment Upcoming Encounters Date Type Department Care Team (Late st Contact Info) Description 07/15/2024 1:00 PM EDT Office Visit [facility] [address] [place] [address] Anthony Ruiz, ANP [address] [place] [address] 07/16/2024 3:00 PM EDT Office Visit [facility] [address] [place] [address] Yogesh Gomez, JOHN [address] [place] [address] 08/04/2024 10:00 AM EDT Medication Management [facility] [address] [place] [address] Yuri Pierre, PharmD [address] [place] [address] 08/04/2024 1:00 PM EDT Office Visit [facility] [address] [place] [address] Nuvia Duarte [address] [place] [address] 09/03/2024 2:00 PM EDT Office Visit [address] [address] Hallie Tapia MD [address] [place] [address] 09/27/2024 2:00 PM EDT Office Visit [facility] [address] [place] [phone] Luisa Martinez, OD [address] [place] [address] 10/01/2024 11:00 AM EDT Clinical Support [address] [address] Azeb Hall RN [address] [place] [address] Health Maintenance Due Date Last Done Comments CT Colonography 1960 FIT DNA/Cologuard 1960 FIT 1960 FOBT 1960 Sigmoidoscopy 1960 Alcohol/Substance Use Screening 1972 Hepatitis A Vaccines (1 of 2 - [...] 08/12 Depression Screening 09/30/2024 10/01/2023, 10/01/19 Diabetes: Hemoglobin A1C 12/15/2024 025, 01/02/2024, 12/30/2023, Additional history exists Diabetes: Urine Protein Screening 01/01/2025 01/02/2024, 01/22/2022, 02/12/2021, Additional history exists Mammogram 04/12/2025 04/12/2024, 03/21, 03/20/2023, Additional history exists Cervical Cancer Screening 05/09/2025 HPV/Cotest 05/09/2025 05/09/2020, 05/09/2020 Eye Exam 05/28/2025 05/29/2023, 05/18, 05/29/2023, Additional history exists Lipid Panel 06/18/2025 06/18/2024, 12/18, 09/05/2022, Additional history exists Tobacco Screening 06/28/2025 06/28/2024 Dental X-Ray: Full Mouth 09/12/2026 09/12/2023, 09/18 [...] Completed 10/27/2023, , 11/22/2021, Additional history exists HIV Screening Completed 06/15/2024 Hepatitis C Screening Completed 06/15/2024 HIB Vaccines Aged Out No longer eligi [...] 3:08 PM EDT) No Aida Ragland PharmD Procedures Procedure Name Priority Date/Time Associated Diagnosis Comments POCT FRANKLIN-14 URINE DRUG SCREEN Routine 07/02/2024 10:59 AM EDT Spondylosis of lumbar region without myelopathy or radiculopathy CASE PRESENTATION, DETAILED AND EXTENSIVE TREATMENT PLANNING Routine 06/28/2024 11:30 AM EDT INTRAORAL - PERIAPICAL FIRST RADIOGRAPHIC IMAGE Routine 06/28/2024 11:30 AM EDT PALLIATIVE (EMERGENCY) TREATMENT OF DENTAL PAIN - MINOR PROCEDURE Routine 06/28/2024 11:30 AM EDT POCT GLUCOSE Routine 06/21/2024 6:03 PM EDT Type 2 diabetes mellitus with hyperlipidemia (CMS/HCC) (CMS/HCC) HEPATIC FUNCTION PANEL Routine 06/18/2024 10:18 AM EDT OKEEFE (nonalcoholic steatohepatitis) LIPID PANEL, STANDARD Routine 06/18/2024 10:18 AM EDT Type 2 diabetes mellitus with hyperlipidemia (CMS/HCC) CRP, HIGH SENSITIVITY Routine 06/15/2024 3:08 PM EDT ACTIN (SMOOTH MUSCLE) ANTIBODY (IGG) Routine 06/15/2024 3:08 PM EDT MITOCHONDRIAL ANTIBODY WITH REFLEX TO TITER Routine 06/15/2024 3:08 PM EDT REX SCREEN, IFA, W/REFL TITER AND PATTERN Routine 06/15/2024 3:08 PM EDT ALPHA FETOPROTEIN, TUMOR MARKER Routine 06/15/2024 3:08 PM EDT HIV 1/2 ANTIGEN/ANTIBODY, FOURTH GENERATION W/RFL Routine 06/15/2024 3:08 PM EDT HEPATITIS PANEL, GENERAL Routine 06/15/2024 3:08 PM EDT FERRITIN Routine 06/15/2024 3:08 PM EDT AMYLASE Routine 06/15/2024 3:08 PM EDT LIPASE Routine 06/15/2024 3:08 PM EDT HEPATIC FUNCTION PANEL Routine 06/15/2024 3:08 PM EDT MONONUCLEOSIS TEST, QUALITATIVE Routine 06/15/2024 3:08 PM EDT HEMOGLOBIN A1C Routine 06/15/2024 3:08 PM EDT ECG 12-LEAD Routine 06/09/2024 1:51 PM EDT Chest discomfort GLUCOSE, WHOLE BLOOD Routine 05/30/2024 4:16 PM [...] TOMOSYNTHESIS BILATERAL Routine 04/12/2024 1:48 PM EST ALBUMIN, RANDOM URINE W/CREATININE Routine 01/02/2024 8:44 AM EST Type 2 diabetes mellitus with hyperlipidemia (CMS/HCC) PROPHYLAXIS - ADULT Routine 10/06/2023 9 :00 [...] Results * POCT FRANKLIN-14 Urine Drug Screen (07/02/2024 10:59 AM EDT) Only the most recent of2 resultswithin the time period is included. Urine Urine specimen obtained by clean catch procedure / Unknown 07/02/2024 10:59 AM EDT Narrative Azeb Hall RN - 07/02/2024 10:59 AM EDT negative AMP, BAR, BUP, BZO, RENETTA, FTY, MDMA, MET, MOP, MTD, OXY, PCP, TCA, THC. .UTOX cup Lot#[id number] Exp. 10/06/25 Internal Pass Control us Anthony PAGE POINT OF CARE TEST ENTER/EDIT OR DERABLES Final Result * POCT glucose manually resulted (06/21/2024 6:03 PM EDT) Glucose Blood, POC 119 60 - 200 mg/dL QC Media Lot # [id number] Lot# Expiration Date ,[id number],091 Blood Capillary blood specimen / Unknown 06/21/2024 6:03 PM EDT Mirna Navarro MD POINT OF CARE TEST EN TER/EDIT ORDERABLES Final Result * (ABNORMAL) Hepatic Function Panel (06/18/2024 10:18 AM EDT) Only the most recent of2 resultswithin the time period is included. Pathologist [facility] Bilirubin, Total 0.4 0.0 - 1.0 mg/dL [facility] Bilirubin, Direct 0.2 0.0 - 0.5 mg/dL [facility] Aspartate Amino Transferase 61(H) 5 - 31 U/L [facility] Alanine Aminotransferase 72(H) 0 - 31 U/L [facility] Total Protein 7.9 6.5 - 8.0 g/dL [facility] Albumin Level 3.9 3.5 - 5.0 g/dL [facility] Alkaline Phosphatase 122(H) 39 - 117 U/L [facility] Blood Venous blood specimen / Unknown 06/18/2024 10:18 AM EDT 06/18/2024 11:08 AM EDT Anthony PAGE LAB BLOOD ORDERABLES Final Resul t [facility] [address] [place] [address] [phone] * (ABNORMAL) Lipid Panel, Standard (06/18/2024 10:18 AM EDT) Triglycerides 122 <150 mg/dL [facility] Comment:Desirable Triglyceri de: less than 150 mg/dLBorderline High Triglyceride 150-199 mg/dLHigh Triglyceride: 200-499 mg/dLVery High Triglyceride: greater than or equal to 5OO mg/dL Cholesterol 216(H) <200 mg/dL [facility] Comment:Desirable Cholestero l: less than 200 mg/dLBorderline High Cholesterol: 200-239 mg/dLHigh Cholesterol: greater than 239 mg/dL LDL Cholesterol Calculated 128(H) <100 mg/dL [facility] Comment:Desirable LDL: less than 100 mg/dLNear Optimal/Above Optimal LDL: 110- 129 mg/dLBorderline High LDL: 130-159 mg/dLHigh LDL: 160-189 mg/dLVery High LDL: greater than or equal to 190 mg/dL HDL Cholesterol 64 >40 mg/dL [facility] Comment:Desirable HDL: great er than 40 mg/dL Note: This HDL assay may give artificially low results in patients with liver disease. Blood Venous blood specimen / Unknown 06/18/2024 10:18 AM EDT 06/18/2024 11:08 AM EDT us Anthony Ruiz [facility] LAB BLOOD ORDERABLES Final Resul t [facility] [address] [place] [address] [phone] * (ABNORMAL) CRP, HIGH SENSITIVITY (06/15/2024 3:08 PM EDT) CRP, High Sensitivity 3.7(A) mg/L [facility] Comment: Reference RangeOptimal <1.0Gamaliel Betancourt al. Endocr Pract.2017;23(Suppl 2):1- 87.For ages >17 Years:hs-CRP mg/L ??Risk According to AHA/CDC Guidelines<1.0 ? Lower relative cardiovascular risk.1.0-3.0 ?Average relative cardiovascular risk.3.1-10.0 ? Higher relative cardiovascular risk. ? Consider retesting in 1 to 2 weeks to ? exclude a benign transient elevation ? in the baseline CRP value secondary ? to infection or inflammation.>10.0 ?Persistent elevation, upon retesting, ? may be associated with infection and ? inflammation.Pendleton TA, Candace GA, Noe RW, et al. Markersof inflammation and cardiovascular disease:application to clinical and public health practice:A statement for healthcare professionals from theMemorial Health System Marietta Memorial Hospitalers for Disease Control and Prevention and theAmerican Heart Association. Circulation 2003; 107(3):499-511.THIS TEST WAS PERFORMED AT:[facility] [place] [address] ?? [id number] WARREN MD 06/15/2024 3:08 PM EDT 06/15/2024 3:08 PM EDT Generic External Data Provider LAB BLOOD ORDERAB LES Final Result Performing Organization Address [facility] de Phone Number [facility] [address] [place] [address] [phone] * Hepatitis Panel, General (06/15/2024 3:08 PM EDT) Hepatitis A IgM Nonreactive Nonreactive [facility] Comment:IgM antibodies to VARNER V not detected; does not exclude earlyacute or recovered HAV infection. ~Hepatitis B Surface Antibody REACTIVE Nonreactive [facility] Comment:REACTIVE: > 11.99 mI U/mL Hepatitis B Core Antibody Nonreactive Nonreactive [facility] Hepatitis C Antibody Nonreactive Nonreactive [facility] Comment:Antibodies to HCV no t detected; does not exclude early acuteHCV infection. Hepatitis B Surface Ag Negative Negative [facility] 06/15/2024 3:08 PM EDT 06/15/2024 3:08 PM EDT Generic External Data Provider LAB BLOOD ORDERAB LES Final Result Performing Organization Address [facility]/State/ZIP Co de Phone Number [facility] [address] [place] [address] [phone] * (ABNORMAL) Actin (Smooth Muscle) Antibody (IgG) (06/15/2024 3:08 PM EDT) Smooth Muscle Antibody 69(A) <20 U [facility] Comment:Reference Range: <20 U: Negative>or=20 U: PositiveAntibodies recognizing actin are the main componentof smooth muscle antibodies associated with auto- immune liver disease. Actin antibodies are found inapproximately 75% of patients with autoimmunehepatitis (AIH) type 1, approximately 65% of patientswith autoimmune cholangitis, approximately 30% ofpatients with primary biliary cirrhosis andapproximately 2% of healthy controls. High values areclosely correlated with AIH type 1.THIS TEST WAS PERFORMED AT:[employer]/[id number] [place] [address]WZTMQOCDEAN CASAS MD,PHD 06/15/2024 3:08 PM EDT 06/15/2024 3:08 PM EDT us Generic External Data Provider LAB BLOOD ORDERAB LES Final Result [facility] [address] [place] [address] [phone] * Alpha-Fetoprotein, Tumor Marker (06/15/2024 3:08 PM EDT) Alpha Fetoprotein 3.6 ng/mL [facility] Comment:Reference Range: <6. 1The use of AFP as a tumor marker in females is not recommended.This test was performed using the Fortunato Coulterchemiluminescent method. Values obtained fromdifferent assay methods cannot be usedinterchangeably. AFP levels, regardless ofvalue, should not be interpreted as absoluteevidence of the presence or absence of disease.THIS TEST WAS PERFORMED AT:[employer] [address] [id number] WARREN MD 06/15/2024 3:08 PM EDT 06/15/2024 3:08 PM EDT us Generic External Data Provider LAB BLOOD ORDERAB LES Final Result Performing Organization Address [facility] Co de Phone Number [facility] [address] [place] [phone] * Mitochondrial Antibody with Reflex to Titer (06/15/2024 3:08 PM EDT) Mitochondrial Antibodies NEGATIVE NEGATIVE [facility] Comment:The specimen was neg ative for cytoplasmic antibodies,however additional staining was observed suggesting thepresence of Antinuclear Antibodies. Consider requestingorder code 249, REX Screen, IFA with Reflex to Titer andPattern, or order code [id number], REX Screen, IFA w/reflexTiter/Pattern, and Reflex to Multiplex 11 Ab [place],if clinically indicated.THIS TEST WAS PERFORMED AT:[facility] [place] [id number] WARREN MD Mitochondrial Ab Titer TNP [facility] 06/15/2024 3:08 PM EDT 06/15/2024 3:08 PM EDT us Generic External Data Provider LAB BLOOD ORDERAB LES Final Result Performing Organization Address [facility] Co de Phone Number [facility] [address] [place] [phone] * Mononucleosis Test, Qualitative (06/15/2024 3:08 PM EDT) Monotest Negative Negative [facility] 06/15/2024 3:08 PM EDT 06/15/2024 3:08 PM EDT Generic External Data Provider LAB BLOOD ORDERAB LES Final Result Performing Organization Address [facility] Co de Phone Number [facility] [address] [place] [phone] * HIV-1/2 Antigen and Antibodies, Fourth Generation, with Reflexes (06/15/2024 3:08 PM EDT) HIV AB/AG Nonreactive Nonreactive [facility] Comment:HIV-1 p24 Ag and/or HIV-1/HIV-2 Ab not detected.A test result that is nonreactive does not exclude thepossibility of exposure to or infection with HIV-1 and/orHIV-2. Nonreactive results in this assay for individualswith prior exposure to HIV-1 and/or HIV-2 may be due toantigen and antibody levels that are below the limit ofdetection of this assay.The [employer]Date HIV Ag/Ab Combo assay result andsupplemental assay results should be interpreted inconjunction with the patient's clinical presentation,history and other laboratory results. If the results areinconsistent with clinical evidence, additional testing issuggested to confirm the result. 06/15/2024 3:08 PM EDT 06/15/2024 3:08 PM EDT us Generic External Data Provider LAB BLOOD ORDERAB LES Final Result [facility] [address] [place] [phone] * (ABNORMAL) REX Screen,IFA, with Reflex to Titer and Pattern (06/15/2024 3:08 PM EDT) Anti Nuclear Antibody Screen POSITIV E(A) NEGATIVE [facility] Comment:REX IFA is a first l ine screen for detecting thepresence of up to approximately 150 autoantibodies invarious autoimmune diseases. A positive REX IFA resultis suggestive of autoimmune disease and reflexes totiter and pattern. Further laboratory testing may beconsidered if clinically indicated.For additional information, please refer tohttp://education.Perception Software/faq/OFE641(This link is being provided for informational/educational purposes only.) REX Titer 1:1280( A) titer [facility] Comment:Reference Range <1:4 0 Negative 1:40-1:80 Low Antibody Level >1:80 Elevated Antibody Level REX Pattern Nuclear , Homogen eous(A) [facility] Comment:Homogeneous pattern is associated with systemic lupuserythematosus (SLE), drug-induced lupus and juvenileidiopathic arthritis.AC-1: HomogeneousInternational Consensus on REX Patterns(https://doi.org/10.1515/pbdx-6091-1930)THIS TEST WAS PERFORMED AT:[address] [place] [phone] WARREN MD REX TITER 2 (REF LAB) [facility] REX Pattern 2 [facility] T[facility] 3 [facility] REX PATTERN 3 [facility] 06/15/2024 3:08 PM EDT 06/15/2024 3:08 PM EDT Generic External Data Provider LAB BLOOD ORDERAB LES Final Result Performing Organization Address [facility]/ZIP Co de Phone Number [facility] [address] [place] [phone] * Lipase (06/15/2024 3:08 PM EDT) Pathologist [facility] Lipase 20 8 - 78 U/L [facility] 06/15/2024 3:08 PM EDT 06/15/2024 3:08 PM EDT Generic External Data Provider LAB BLOOD ORDERAB LES Final Result Performing Organization Address [facility] Co de Phone Number [facility] [address] [place] [phone] * (ABNORMAL) Hemoglobin A1c (06/15/2024 3:08 PM EDT) Hemoglobin A1c 6.6(H) <6.0 % [facility] Comment:Hemoglobin A1C Refer ence Range Adults: 4.8 - 6.0 % Non diabetic: < 6.0 % Goal: < 7.0 %Additional Action Suggested: > 8.0 %Note: Hemoglobin A1c results are invalid for patients with abnormal amounts of HbF. Blood transfusions may impact the HbA1c concentration in the patient sample. Estimated Average Glucose 143 mg/dL [facility] Comment:eAG = Estimated ave rage glucose which is %A1C expressed asaverage glucose, using the formula of the L2Q-ExlwakrLzrxewu Glucose study (ADAG), Diabetes Care, Vol.31,#8,2007 06/15/2024 3:08 PM EDT 06/15/2024 3:08 PM EDT us Generic External Data Provider LAB BLOOD ORDERAB LES Final Result Performing Organization Address [facility] Co de Phone Number [facility] [address] [place] [phone] * Ferritin (06/15/2024 3:08 PM EDT) Ferritin 159 10 - 250 ng/mL [facility] 06/15/2024 3:08 PM EDT 06/15/2024 3:08 PM EDT Generic External Data Provider LAB BLOOD ORDERAB LES Final Result Performing Organization Address [facility] Co il Phone Number [facility] [address] [place] [phone] * Amylase (06/15/2024 3:08 PM EDT) Amylase 45 28 - 100 U/L [facility] 06/15/2024 3:08 PM EDT 06/15/2024 3:08 PM EDT Generic External Data Provider LAB BLOOD ORDERAB LES Final Result Performing Organization Address [facility] de Phone Number [facility] [address] [place] [phone] * ECG 12 lead (06/09/2024 1:51 PM EDT) Narrative Mirna Barnes MD - 06/09/2024 1:51 PM EDT NSR us Mirna Navarro MD ECG ORDERABLES Final Result * Glucose, Whole Blood (05/30/2024 4:16 PM EDT) Only the most recent of3 resultswithin the time period is included. Glucose, Whole Blood 105 60 - 115 mg/dL [facility] Comment:METER #: [id number] 05/30/2024 4:16 PM EDT 05/30/2024 4:19 PM EDT Generic External Data Provider LAB BLOOD ORDERAB LES Final Result Performing Organization Address [facility] Co de Phone Number [facility] [address] [place] [phone] * Blood Culture (First) (05/30/2024 1:17 PM EDT) Blood Venous blood specimen / Unknown 05/30/2024 1:17 PM EDT 05/30/2024 1:23 PM EDT Comment:Blood Narrative [facility] - 06/04/2024 3:23 PM EDT Blood Culture (First) No growth after 5 days. Specimen Source: Blood Generic External Data Provider LAB MICROBIOLOGY - GENERAL ORDERABLES Final Result [facility] [address] [place] [phone] * Blood Culture (Second) (05/30/2024 1:17 PM EDT) Blood Venous blood specimen / Unknown 05/30/2024 1:17 PM EDT 05/30/2024 1:23 PM EDT Comment:Blood Narrative [facility] - 06/04/2024 3:23 PM EDT Blood Culture (Second) No growth after 5 days. Specimen Source: Blood us Generic External Data Provider LAB MICROBIOLOGY - GENERAL ORDERABLES Final Result [facility] [address], [place] [phone] * (ABNORMAL) CBC auto differential (05/30/2024 1:17 PM EDT) White Blood Count 6.0 4.8 - 10.8 X10*3/uL [facility] Red Blood Count 4.49 4.20 - 5.50 X10*6/uL [facility] Hemoglobin 14.6 12.0 - 16.0 g/dl [facility] Hematocrit 42.3 37.0 - 47.0 % [facility] Mean Corpuscular Volume 94.2 80.0 - 98.0 fL [facility] Mean Corpuscular Hemoglobin 32.5 27.0 - 33.0 pg [facility] Mean Corpuscular HGB Conc 34.5 31.0 - 35.0 g/dl [facility] Red Cell Distribution Width 14.3 11.0 - 16.0 % [facility] Platelet Count 269 160 - 400 X10*3/uL [facility] Mean Platelet Volume 9.7 9.4 - 12.3 fL [facility] Neutrophils Percent Auto 46.6 45 - 73 % [facility] Imm Gran Pct Auto 0.2 0.0 - 0.4 % [facility] Lymphocytes Percent Auto 41.4(H) 20 - 40 % [facility] Monocytes Percent Auto 8.3 2 - 11 % [facility] Eosinophils Percent Auto 2.8 0 - 4 % [facility] Basophils Percent Auto 0.7 0 - 2 % [facility] NRBC Pct Auto 0.0 0.0 - 0.2 /100WBC [facility] Neutrophils Absolute Auto 2.8 2.0 - 8.3 x10*3/uL [facility] Imm Gran Abs Auto 0.01 0.00 - 0.03 X10*3/uL [facility] Lymphocytes Absolute Auto 2.5 1.2 - 4.9 X10*3/uL [facility] Monocytes Absolute Auto 0.5 0.1 - 1.2 X10*3/uL [facility] Eosinophils Absolute Auto 0.2 0.0 - 0.4 X10*3/uL [facility] Basophils Absolute Auto 0.0 0.0 - 0.2 X10*3/uL [facility] NRBC Abs Auto 0.000 0.0 - 0.012 X10*3/uL [facility] 05/30/2024 1:17 PM EDT 05/30/2024 1:23 PM EDT us Generic External Data Provider LAB BLOOD ORDERAB LES Final Result Performing Organization Address [facility]/ZIP Co de Phone Number [facility] [address] [place] [phone] * (ABNORMAL) Sed Rate by Modified Earlineren (05/30/2024 1:17 PM EDT) Erythrocyte Sedimentation Rate 28(H) 0 - 20 MM/HR [facility] Comment:Patients with polycy themia and many hemoglobin abnormalitiesmay have depressed sed rates whereas patients with anemiamay have elevated sed rates. 05/30/2024 1:17 PM EDT 05/30/2024 1:23 PM EDT us Generic External Data Provider LAB BLOOD ORDERAB LES Final Result Performing Organization Address City/[facility]/ZIP Co de Phone Number [facility] [address] [place] [phone] * (ABNORMAL) C-reactive Protein (05/30/2024 1:17 PM EDT) C Reactive Protein 2.28(H) < or = 0.50 mg/dL [facility] 05/30/2024 1:17 PM EDT 05/30/2024 1:23 PM EDT us Generic External Data Provider LAB BLOOD ORDERAB LES Final Result Performing Organization Address City/[facility]/ZIP Co de Phone Number [facility] [address] [place] [phone] * Lactic Acid (05/30/2024 1:17 PM EDT) Lactic Acid 0.8 0.5 - 2.0 mmol/L [facility] 05/30/2024 1:17 PM EDT 05/30/2024 1:31 PM EDT us Generic External Data Provider LAB BLOOD ORDERAB LES Final Result Performing Organization Address City/[facility]/ZIP Co de Phone Number [facility] [address] [place] [phone] * (ABNORMAL) Comprehensive Metabolic Panel (05/30/2024 1:17 PM EDT) Sodium 142 135 - 145 mmol/L [facility] Potassium 3.4 3.3 - 5.1 mmol/L [facility] Chloride 112(H) 96 - 108 mmol/L [facility] Carbon Dioxide 23 22 - 29 mmol/L [facility] Anion Gap 10(L) 12 - 20 [facility] Urea Nitrogen (BUN) 11 9 - 16 mg/dL [facility] Creatinine, Serum 0.75 0.5 - 1.4 mg/dL [facility] Creatinine Clr Calc Pharmacy 84.4 [facility] Comment:Provided height and weight: 165.1 cm,88.6 kg.eGFR (calculated from the MDRD study equation) and eCrCl(calculated from the Cockcroft-Gault equation) are based ondifferent parameters and may not yield comparable results.If eCrCl result is absurd, please check patient'sheight/weight. Estimated Glomerular Filt Rate >60 [facility] Comment:Chronic Kidney Disea se: Estimated GFR < 60 mL/min/1.51e2Uqkykr Kidney Disease: Estimated GFR < 15 mL/min/1.73m2 Glucose 133(H) 60 - 115 mg/dL [facility] Calcium 8.8 8.4 - 10.2 mg/dL [facility] Bilirubin, Total 0.5 0.0 - 1.0 mg/dL [facility] Aspartate Amino Transferase 197(H) 5 - 31 U/L [facility] Alanine Aminotransferase 243(H) 0 - 31 U/L [facility] Total Protein 7.6 6.5 - 8.0 g/dL [facility] Albumin Level 3.7 3.5 - 5.0 g/dL [facility] Alkaline Phosphatase 164(H) 39 - 117 U/L [facility] 05/30/2024 1:17 PM EDT 05/30/2024 1:23 PM EDT us Generic External Data Provider LAB BLOOD ORDERAB LES Final Result Performing Organization Address City/State/[facility] Co de Phone Number [facility] [address] [place] [phone] * US RENAL BI (05/27/2024 10:05 AM EDT) Anatomical Region Laterality Modality Abdomen Ultrasound 05/27/2024 10:0 5 AM EDT Narrative 05/27/2024 10:06 AM EDT ? [facility] ?[address] ?[place] [address] ? Ultrasound Report ? Signed ? Patient: Nuvia Fay ?MR ?? #: [id number] ? : 1960 ?Acct:[id number] ? Age/Sex: 63 / F ?ADM Date: 05/26/24 ? Loc: HO.US ? Attending Dr: Moses Mccoy MD ? Ordering Physician: Moses Mccoy MD ?? Date of Service: 05/26/24 ?? Procedure(s): US renal BI ?? Accession Number(s): [id number] ? cc: Moses Mccoy MD; ANTHONY RUIZ [...] Plasencia MD in OV> ?05/27/246 ? DD/ ? TD/TT: 05/27/241004 ? Road Engineer: ? Procedure Note Vinicius Frederick - 05/27/[address] [address] Ultrasound Report Signed Patient: Nuvia Fay EMR #: [id number] : 1Acct:[id number] Age/Sex: 63 / FADM Date: 05/26/24 Loc: HO.US Attending Dr: Moses Mccoy MD Ordering Physician: Moses Mccoy MD Date of Service: 05/26/24 Procedure(s): US renal BI Accession Number(s): [id number] cc: Moses Mccoy MD; ANTHONY RUIZ NP [...] 05/27/24 1006 DD/ 1005 TD/TT: 05/27/24 [address] Engineer: us [facility] External Provider IMG US PROCEDURES Final Result * Drug Monitoring, Panel 1, Screen, Urine (05/27/2024 8:07 AM EDT) Opiate Screen Urine Not Detected Not Detect [facility] Comment:Opiate cut-off is 30 0 ng/mL.Positive results are unconfirmed and should not be used fornon-medical purposes. Barbiturates, Urine Not Detected Not Detect [facility] Comment:Barbiturate cut-off is 200 ng/mL.Positive results are unconfirmed and should not be used fornon-medical purposes. Phencyclidine Screen Urine Not Detected Not Detect [facility] Comment:Phencyclidine cut-of f is 25 ng/mL.Positive results are unconfirmed and should not be used fornon-medical purposes. Amphetamine Screen Urine Not Detected Not Detect [facility] Comment:Amphetamine cut-off is 1000 ng/mL.Positive results are unconfirmed and should not be used fornon-medical purposes. Benzodiazepines Screen Urine Not Detected Not Detect [facility] Comment:Benzodiazepine cut-o ff is 200 ng/mL.Positive results are unconfirmed and should not be used fornon-medical purposes. Cocaine Screen Urine Not Detected Not Detect [facility] Comment:Cocaine cut-off is 3 00 ng/mL.Positive results are unconfirmed and should not be used fornon-medical purposes. Cannabinoid Screen Urine Not Detected Not Detect [facility] Comment:Cannabinoid cut-off is 50 ng/mL.Positive results are unconfirmed and should not be used fornon-medical purposes. Methadone Screen, Urine Not Detected Not Detect ng/mL [facility] Comment:Methadone cut-off is 300 ng/mL.Positive results are unconfirmed and should not be used fornon-medical purposes. FENTANYL URINE Not Detected Not Detect [facility] Comment:Fentanyl cut-off is 1 ng/mL.Positive results are unconfirmed and should not be used fornon-medical purposes. Oxycodone Urine Screen Not Detected Not Detect ng/mL [facility] Comment:Oxycodone cut-off is 100 ng/mL.Positive results are unconfirmed and should not be used fornon-medical purposes. Buprenorphine Screen Not Detected Not Detect ng/mL [facility] Comment:Buprenorphine cut-of f is 5 ng/mL.Positive results are unconfirmed and should not be used fornon-medical purposes. 05/27/2024 8:07 AM EDT 05/27/2024 8:13 AM EDT us Generic External Data Provider LAB URINE ORDERAB LES Final Result [facility] [address] [place] [phone] * D Dimer High Sensitivity (04/20/2024 1:21 PM EST) D Dimer High Sensitivity 218 NG/ML [facility] Comment:D-DIMER HS REFERENCE RANGENote: Our [...] ORDERABLES Final Resul t Performing Organization Address [facility]/State/ZIP Co de Phone Number [facility] [address] [place] [phone] * XR Chest 2 Views (04/20/2024 1:05 PM EST) Anatomical Region Laterality Modality Chest Radiographic Griselda ging 04/20/2024 1:05 PM EST Narrative 04/21/2024 9:57 AM EST ? [facility] ?[address] ?[place] [address] ?XRay Report ? Signed ? Patient: Nuvia Fay E ?MR ?? #: [id number] ? : 1960 ?Acct:[id number] ? Age/Sex: 63 / F ?ADM Date: 04/20/24 ? Loc: HO.XRAY ? Attending Dr: Chava Presley MD ? Ordering Physician: CHAVA PRESLEY MD ?? Date of Service: 04/20/24 ?? Procedure(s): XR chest 2V ?? Accession Number(s): [id number] ? cc: CHAVA PRESLEY MD; ANTHONY RUIZ [...] DD/ 1305 ? TD/TT: 04/20/24 1310 ? Road Engineer: MSM ? Procedure Note Donotmarshainterpreter, Image - 04/21/[address] [address] XRay Report Signed Patient: Nuvia Fay EMR #: [id number] : 1960cct:[id number] Age/Sex: 63 / FADM Date: 04/20/24 Loc: ADRIA Attending Dr: Chava Presley MD Ordering Physician: CHAVA PRESLEY MD Date of Service: 04/20/24 Procedure(s): XR chest 2V Accession Number(s): [id number] cc: CHAVA PRESLEY MD; ANTHONY RUIZ NP [...] 04/21/24 0954 DD/ 1305 TD/TT: 04/20/24 [address] Engineer: NANCY Chava Presley MD IMG XR PROCEDURES Edited Result - Final * POCT Rapid Influenza B BAILEY ID NOW (04/15/2024 2:02 PM EST) Influenza B Negative Negative, Indeterminate [facility] QC Media Lot # [id number] [facility] Lot# Expiration Date [facility] Swab 04/15/2024 2:02 PM EST Anthony Ruiz ANP POINT OF CARE TEST ENTER/EDIT OR DERABLES Final Result Performing Organization Address [facility]/ZIP Co de Phone Number [facility] [address] [place] [phone] * POCT Rapid Covid-19 BinaxNOW (04/15/2024 2:01 PM EST) [facility] Rapid COVID Ag Negative QC Media Lot # [id number] Lot# Expiration Date Swab 04/15/2024 2:01 PM EST Anthony Ruiz [facility] POINT OF CARE TEST ENTER/EDIT OR DERABLES Final Result * POCT Rapid Influenza A BAILEY ID NOW (04/15/2024 1:59 PM EST) [facility] Influenza A Negative Negative, Indeterminate [facility] QC Media Lot # [id number] [facility] Lot# Expiration Date [facility] Swab 04/15/2024 1:59 PM EST Anthony Ruiz [facility] POINT OF CARE TEST ENTER/EDIT OR DERABLES Edited Result - Final Performing Organization Address [facility]/ZIP Co de Phone Number [facility] [address] [place] [address] [phone] * BI Mammogram Screening Tomosynthesis Bilateral (04/12/2024 1:48 PM EST) Anatomical Region Laterality Modality Breast Bilateral Mammography 04/12/2024 1:48 PM EST Narrative 04/17/2024 12:38 PM EST ? [facility] ? [address] ?[place] [address] ? Mammography Report ? Signed ? Patient: Avinash Ho,Nuvia E ?MR ?? #: [id number] ? : 1960 ?Acct:[id number] ? Age/Sex: 63 / F ?ADM Date: 04/12/24 ? Loc: HO.MAMMO ? Attending Dr: Monica Lozano CNM ? Ordering Physician: Monica Lozano CNM ?Results: 2Beni ?? gn Findings ? Date of Service: 04/12/24 ?Follow Up: 1 Year From Orig ?? inal Mammogram ? Procedure(s): MM tomosynthesis screening BI ?? Accession Number(s): [id number] ? cc: Monica Lozano CNM; ANTHONY RUIZ [...] DD/ 1348 ? TD/TT: 04/12/24 1405 ? Road Engineer: ? Procedure Note Donconnerter, Image - 04/17/2024 [facility] [address] [place] [address] Mammography Report Signed Patient: Nuvia Fay EMR #: [id number] : 1Acct:[id number] Age/Sex: 63 / FADM Date: 04/12/24 Loc: HO.MAMMO Attending Dr: Monica Lozano CNM Ordering Physician: Monica Lozanoesults: 2Beni gn Findings Date of Service: 04/12/24Follow Up: 1 Year From Orig inal Mammogram Procedure(s): MM tomosynthesis screening BI Accession Number(s): [id number] cc: Monica Lozano CNM; ANTHONY RUIZ NP [...] 04/17/24 1235 DD/ 1348 TD/TT: 04/12/[address] Engineer: [facility] External Provider IMG BI PROCEDURES Edited Result - Final * Albumin, Random Urine W/Creatinine (01/02/2024 8:44 AM EST) Creatinine, Urine 47.20 mg/dL [facility] Microalbumin Urine 7.0 mg/L [facility] Microalbum Creatinine Ratio Ur 14.8 <30 ug/mg cr [facility] Comment:Albumin/Creatinine R atio Reference Ranges: Normal: < 30 ug/mg creatinine Microalbuminuria: 30 - 300 ug/mg creatinineClinical Albuminuria: > 300 ug/mg creatinine Urine (Urine, Random) 01/02/2024 8:44 AM EST 01/02/2024 11:09 AM EST [facility] LAB URINE ORDERABLES Final Resul t [facility] [address] [place] [phone] * (ABNORMAL) Hm Colonoscopy (12/27/2021) Colonoscopy Abnormal(A ) Normal Historical Provider HEALTH MAINTENANCE Final Result * HPV E6/E7 RFLX ALFRED 16 18/45 (05/09/2020 11:19 AM EDT) HPV mRNA E6/E7 rflx Not Detected Not Detected [facility] Comment: Methodology: Sizing End Bander-Mediated Amplification This assay detects E6/E7 viral messenger RNA (mRNA) from 14 high-risk HPV types (16,18,31,33,35,39,45,51,52,56,58,59,66,68). The analytical performance characteristics of this assay have been determined by [employer]. The modifications have not been cleared or approved by the FDA. This assay has been validated pursuant to the CLIA regulations and is used for clinical purposes. For additional information, please refer to http://education.TranZfinity/faq/XZL562t1 (This link if provided for information/ educational purposes only.) THIS TEST WAS PERFORMED AT: [facility] [address] [place] [address],[address] [place], [place] ??[id number] HERNAN WARREN MD 05/09/2020 11:1 9 AM EDT [place] [place] HISTORICAL/NON ORDERABLE LABS Fi nal Result [facility] Counts include 234 beds at the [facility] Anywhere [address] from Last 3 Months or Most Recently Relevant to Health Maintenance Insurance [facility] < 65 RAYMUNDO BARRERA [id number] DENTAL - [facility] Care Teams Entry Specialist Relationship Specialty Start Date End Date Anthony Ruiz ANP [address] [place] [address] PCP - General Family Medicine 09/23/19 Yuri Pierre, MikeD [address] [place] [address] Pharmacist Internal Medicine 05/05/24 Basilio Hall MD [address] [place] [address] Cardiology 05/17/24 Ron Preciado MD [address] [place] [address] Pulmonary Disease 05/17/24
--- OUTSIDE RECORDS SUMMARY | 2024-07-05 11:45 | XMS_ITS | Encounter Summary ---
Author Organization [email or web address] Address [address] [facility] 7t [place] [address] Care Team Providers Care Drug Room Operator Name Role Phone Sariah Vickers Primary Care Provider [phone] Yuri Pierre PharmD Unavailable [phone] Basilio Hall MD Unavailable [phone] Ron Preciado MD Unavailable [phone] Reason for Visit * Reason Onset Date Comments Nurse Triage 12/24/2022 Encounter Details Date Type Department Care Team (Late st Contact Info) Description 12/24/2022 Telephone [facility] MEDICINE [address] [place], [place] [phone] Sariah Vickers ANP [address] [place], [place] [phone] Nurse Triage Social History Tobacco Use Types [...] - 12/24/2022 1:11 PM EST Called pt.via [employer] bilingual interpreter [id number] Benjamin. Pt. States that she wants to [...] regimen and possible referral to a new Wet Crown Blocking Operator due to pt. Not having jeremie in [...] accepted this outcome Please contact pt at [phone] documented in this encounter Plan of Treatment Upcoming Encounters Date Type Department Care Team (Late st Contact Info) Description 07/15/2024 1:00 PM EDT Office Visit [address] [address] Sariah Vickers ANP [address] [place] [address] 07/16/2024 3:00 PM EDT Office Visit [facility] ADULT DENTAL [address] [place] [address] Yogesh Gomez, JOHN [address] [place] [address] 08/04/2024 10:00 AM EDT Medication Management [address] [address] Yuri Pierre, PharmD [address] [place] [address] 08/04/2024 1:00 PM EDT Office Visit [facility] ADULT DENTAL [address] [place] [address] Nuvia Duarte [address] [place] [address] 09/03/2024 2:00 PM EDT Office Visit [address] [address] Hallie Tapia MD [address] [place] [address] 09/27/2024 2:00 PM EDT Office Visit [facility] OPTOMETRY [address] [place] [address] Luisa Martinez, OD 230 [place] [address] 10/01/2024 11:00 AM EDT Clinical Support [address] [address] Azeb Hall, MARTIN [address] [place] [address] documented as of this encounter Goals Goal Patient Goal Type Associated Problems Recent Progress Patient-Stated? Author Blood Pressure < 140/90 Blood Pressure 142/80(2024 11:35 AM EDT) No Aida Ragland PharmD Record Your Blood Sugar As Directed General No Aida Ragland PharmD Hemoglobin A1c < 7 Result Component 6.6( 3:08 PM EDT) No Aida Ragland PharmD documented as of this encounter Visit Diagnoses Not on filedocumented in this encounter Care Teams Drug Room Operator Relationship Specialty Start Date End Date Sariah Vickers ANP [address] [place] [address] PCP - General Family Medicine 09/23/19 Yuri Pierre, MikeD [address] [place] [address] Pharmacist Internal Medicine 05/05/24 Basilio Hall MD [address] [place] [address] Cardiology 05/17/24 Ron Preciado MD [address] [place] [address] Pulmonary Disease 05/17/24 documented as of this encounter
--- OUTSIDE RECORDS SUMMARY | 2024-07-05 11:45 | XMS_ITS | Encounter Summary ---
Author Organization [employer] Address [address] [facility] [address] 7t [place] [address] Care Team Providers Care General Engineering Teacher Name Role Phone Sariah Vickers Primary Care Provider [phone] Yuri Pierre PharmD Unavailable [phone] Basilio Hall MD Unavailable [phone] Ron Preciado MD Unavailable [phone] Reason for Visit * Reason Comments Med Refill Encounter Details Date Type Department Care Team (Late st Contact Info) Description 01/04/2024 Refill [facility] CHC MED & PEDS [address] [place] [address] Sariah Vickers ANP [address] [place] [address] Cervicalgia Social History Tobacco Use Types Packs/Day [...] Description 07/15/2024 1:00 PM EDT Office Visit [facility] MEDICINE [address] [place] [address] Sariah Vickers, ANP [address] [place] [address] 07/16/2024 3:00 PM EDT Office Visit [facility] ADULT DENTAL [address] [place] [address] Yogesh Gomez, DMD 230 [place] [address] 08/04/2024 10:00 AM EDT Medication Management [facility] MEDICINE [address] [place] [address] Yuri Pierre, PharmD [address] [place] [address] 08/04/2024 1:00 PM EDT Office Visit [facility] ADULT DENTAL [address] [place] [address] Nuvia Duarte 230 [place] [address] 09/03/2024 2:00 PM EDT Office Visit [facility] MEDICINE [address] [place] [address] Hallie Tapia MD [address] [place] [address] 09/27/2024 2:00 PM EDT Office Visit [facility] OPTOMETRY [address] [place] [address] Luisa Martinez, OD 230 [place] [address] 10/01/2024 11:00 AM EDT Clinical Support [facility] MEDICINE 230 [place] [address] Azeb Hall RN [address] [place] [address] documented as of this encounter Goals Goal [...] documented as of this encounter Care Teams General Engineering Teacher Relationship Specialty Start Date End Date Sariah Vickers ANP [address] [place] [address] PCP - General Family Medicine 09/23/19 Yuri Pierre, MikeD [address] [place] [address] Pharmacist Internal Medicine 05/05/24 Basilio Hall MD [address] [place] [address] Cardiology 05/17/24 Ron Preciado MD [address] [place] [address] Pulmonary Disease 05/17/24 documented as of this encounter
--- OUTSIDE RECORDS SUMMARY | 2024-07-05 11:45 | XMS_ITS | Encounter Summary ---
Author Organization [employer] Address [address] [facility] [address] 7t [place] [address] Care Team Providers Care Swimming Pool Maintenance Supervisor Name Role Phone Sariah Vickers Primary Care Provider [phone] Yuri Pierre PharmD Unavailable [phone] Basilio Hall MD Unavailable [phone] Ron Preciado MD Unavailable [phone] Reason for Visit * Reason Comments Med Refill Encounter Details Date Type Department Care Team (Late st Contact Info) Description 01/06/2024 Refill [facility] CHC MED & PEDS [address] [place] [address] Sariah Vickers ANP 230 [place] [address] Cervicalgia Social History Tobacco Use Types Packs/Day [...] Description 07/15/2024 1:00 PM EDT Office Visit [facility] MEDICINE [address] [place] [address] Sariah Vickers, ANP 230 [place] [address] 07/16/2024 3:00 PM EDT Office Visit [facility] ADULT DENTAL [address] [place] [address] Yogesh Gomez, DMD [address] [place] [address] 08/04/2024 10:00 AM EDT Medication Management [facility] MEDICINE [address] [place] [address] Yuri Pierre, PharmD 230 [place] [address] 08/04/2024 1:00 PM EDT Office Visit [facility] ADULT DENTAL [address] [place] [address] Nuvia Duarte [address] [place] [address] 09/03/2024 2:00 PM EDT Office Visit [facility] MEDICINE [address] [place] [address] Hallie Tapia MD 230 [place] [address] 09/27/2024 2:00 PM EDT Office Visit [facility] OPTOMETRY [address] [place] [address] Luisa Martinez, OD 230 [place] [address] 10/01/2024 11:00 AM EDT Clinical Support [facility] MEDICINE [address] [place] [address] Azeb Hall RN 505 [place] [address] documented as of this encounter Goals Goal [...] documented as of this encounter Care Teams Swimming Pool Maintenance Supervisor Relationship Specialty Start Date End Date Sariah Vickers ANP [address] [place] [address] PCP - General Family Medicine 09/23/19 Yuri Pierre, MikeD [address] [place] [address] Pharmacist Internal Medicine 05/05/24 Basilio Hall MD [address] [place] [address] Cardiology 05/17/24 Ron Preciado MD [address] [place] [address] Pulmonary Disease 05/17/24 documented as of this encounter
--- OUTSIDE RECORDS SUMMARY | 2024-07-05 11:45 | XMS_ITS | Encounter Summary ---
Author Organization [employer] Address [address] [facility] [address] 7t [place] [address] Care Team Providers Care Assembly Operator Name Role Phone Sariah Vickers KAYLEE Primary Care Provider [phone] Yuri Pierre PharmD Unavailable [phone] Basilio Hall MD Unavailable [phone] Ron Preciado MD Unavailable [phone] Reason for Visit * Reason Comments controlled substance treatment Encounter Details Date Type Department Care Team (Latest Contact Info) Description 07/02/2024 11:00 AM EDT Clinical Support [facility] MEDICINE [address] [place] [address] Azeb Hall, MARTIN [address] [place] [address] Spondylosis of lumbar region without myelopathy or [...] Progress Notes * Azeb Hall RN - 07/02/2024 11:00 AM EDT S: Pt here for OPTICS ENGINEER RV. [facility] health science instructor present at the visit. Prescribed Tramadol 50mg PO q12h PRN. Patient states has been taking medication only as prescribed. BZO from an outside provider. Pt denies nicotine/ETOH/street drug/marijuana. Currently rates pain a 2/10 and states medication is usually 100% effective at alleviating pain when taken. Chronic pain group pamphlet given at the last visit, patient still not interested at this time. No other questions/ concerns at this time. O: SAVINGS TELLER verified today. SAVINGS TELLER checked 07/02/24. Pill count performed. Pt has 67 pills at this time, 57 expected. UTOX (-) all tested substances, as expected. A: OPTICS ENGINEER Contract Revisit: Opioid dependence related to chronic pain. P: Patient to continue taking medication only as prescribed; Next OPTICS ENGINEER RV appointment scheduled for 07/02/24 @ 11a @[facility]. F/u with PCP 07/15/24. F/U sooner PRN. Appointment reminder given. Patient verbalized understanding and agreed to plan. documented in this encounter Plan of Treatment Upcoming Encounters Date Type Department Care Team (Late st Contact Info) Description 07/15/2024 1:00 PM EDT Office Visit [facility] MEDICINE [address] [place] [address] Sariah Vickers ANP 230 [place] [address] 07/16/2024 3:00 PM EDT Office Visit [facility] ADULT DENTAL [address] [place] [address] Yogesh Gomez, JOHN [address] [place] [address] 08/04/2024 10:00 AM EDT Medication Management [address] [address] Yuri Pierre, PharmD [address] [place] [address] 08/04/2024 1:00 PM EDT Office Visit [facility] ADULT DENTAL [address] [place] [address] Nuvia Duarte [address] [place] [address] 09/03/2024 2:00 PM EDT Office Visit [address] [address] Hallie Tapia MD 230 [place] [address] 09/27/2024 2:00 PM EDT Office Visit [facility] OPTOMETRY [address] [place] [address] Luisa Martinez, OD 230 [place] [address] 10/01/2024 11:00 AM EDT Clinical Support [address] [address] Azeb Hall, MARTIN [address] [place] [address] documented as of this encounter Goals Goal [...] myelopathy or radiculopathy documented in this encounter Results * POCT FRANKLIN-14 Urine Drug Screen (07/02/2024 10:59 AM EDT) Urine Urine specimen obtained by clean catch procedure / Unknown 07/02/2024 10:59 AM EDT Narrative Azeb Hall RN - 07/02/2024 10:59 AM EDT negative AMP, BAR, BUP, BZO, RENETTA, FTY, MDMA, MET, MOP, MTD, OXY, PCP, TCA, THC. .UTOX cup Lot#[id number] Exp. 10/06/25 Internal Pass Control us Sariah PAGE POINT OF CARE TEST ENTER/EDIT OR DERABLES Final Result documented in this encounter Visit Diagnoses Diagnosis Spondylosis of lumbar region without myelopathy or radiculopathy documented in this encounter Additional Health Concerns Assessment Noted Time PHQ-9 Depression Total Score: 12 024 2:58 PM EDT documented as of this encounter Care Teams Assembly Operator Relationship Specialty Start Date End Date Sariah Vickers ANP [address] [place] [address] PCP - General Family Medicine 09/23/19 Yuri Pierre PharmD [address] [place] [address] Pharmacist Internal Medicine 05/05/24 Basilio Hall MD [address] [place] [address] Cardiology 05/17/24 Ron Preciado MD [address] [place] [address] Pulmonary Disease 05/17/24 documented as of this encounter
--- OUTSIDE RECORDS SUMMARY | 2024-07-05 11:45 | XMS_ITS | Encounter Summary ---
Author Organization [employer] Address 75 [facility] 7t [place] [address] Care Team Providers Care Birth Attendant Name Role Phone Sariah Vickers Primary Care Provider [phone] Yuri Pierre PharmD Unavailable [phone] Basilio Hall MD Unavailable Ron Preciado MD Unavailable [phone] Reason for Visit * Reason Onset Date Comments Referral 05/17/2022 Encounter Details Date Type Department Care Team (Late st Contact Info) Description 05/17/2022 Telephone [facility] MEDICINE [address] [place] [address] Sariah Vickers ANP [address] [place], [place] [phone] Referral Social History Tobacco Use Types Packs/Day [...] guide to vertigo. Please contact pt at [phone] documented in this encounter Plan of Treatment Upcoming Encounters Date Type Department Care Team (Late st Contact Info) Description 07/15/2024 1:00 PM EDT Office Visit [facility] MEDICINE [address] [place] [address] Sariah Vickers ANP [address] [place] [address] 07/16/2024 3:00 PM EDT Office Visit [facility] ADULT DENTAL 230 [place] [address] Yogesh Gomez, JOHN [address] [place] [address] 08/04/2024 10:00 AM EDT Medication Management [facility] MEDICINE [address] [place] [address] Yuri Pierre, PharmD 230 [place] [address] 08/04/2024 1:00 PM EDT Office Visit [facility] ADULT DENTAL [address] [place] [address] Nuvia Duarte [address] [place] [address] 09/03/2024 2:00 PM EDT Office Visit [facility] MEDICINE [address] [place] [address] Hallie Tapia MD 230 [place] [address] 09/27/2024 2:00 PM EDT Office Visit [facility] OPTOMETRY [address] [place] [address] Juan, Luisa, OD 230 [place] [address] 10/01/2024 11:00 AM EDT Clinical Support [facility] MEDICINE [address] [place] [address] Azeb Hall, RN 505 [place] [address] documented as of this encounter Visit Diagnoses Not on filedocumented in this encounter Care Teams Birth Attendant Relationship Specialty Start Date End Date Sariah Vickers ANP 230 [place] [address] PCP - General Family Medicine 09/23/19 Yuri Pierre, MikeD 230 [place] [address] Pharmacist Internal Medicine 05/05/24 Basilio Hall MD [address] [place] [address] Cardiology 05/17/24 Ron Preciado MD [address] [place] [address] Pulmonary Disease 05/17/24 documented as of this encounter
--- OUTSIDE RECORDS SUMMARY | 2024-07-05 11:45 | XMS_ITS | Encounter Summary ---
Author Organization [employer] Address 75 [facility] 7t [place] [address] Care Team Providers Care Surgical Sales Representative Name Role Phone Sariah Vickers Primary Care Provider [phone] Yuri Pierre PharmD Unavailable [phone] Basilio Hall MD Unavailable [phone] Ron Preciado MD Unavailable [phone] Reason for Visit * Reason Onset Date Comments Nurse Triage 01/14/2023 Encounter Details Date Type Department Care Team (Late st Contact Info) Description 01/14/2023 Telephone [facility] MEDICINE 230 [place], [place] [phone] Sariah Vickers ANP 230 [place], [place] [phone] Nurse Triage Social History Tobacco Use Types [...] 01/14/2023 9:26 AM EST Called pt. Via [employer] technical staff engineer [id number] Kelly. Pt. States that she has been having a fire feeling in her legs. Its like A burning that goes down her legs . Pt. Unsure if it because of her Diabetes. Pt. Went to [facility] ED for pain on her left side [...] at 10am. Will send note to clinical critical care paramedic to have note put in chart . [...] Severe pain now, pt was seen at [facility] on 01/13 for pain in leg. Pt is still symptomatic The caller accepted this outcome Please contact pt at [phone] (tierce filler needed) documented in this encounter Plan of Treatment Upcoming Encounters Date Type Department Care Team (Late st Contact Info) Description 07/15/2024 1:00 PM EDT Office Visit [facility] MEDICINE 230 [place] [address] Sariah Vickers ANP 230 [place] [address] 07/16/2024 3:00 PM EDT Office Visit [facility] ADULT DENTAL 230 [place] [address] Yogesh Gomez, JOHN 230 [place] [address] 08/04/2024 10:00 AM EDT Medication Management [facility] MEDICINE [address] [place] [address] Yuri Pierre, PharmD 230 [place] [address] 08/04/2024 1:00 PM EDT Office Visit [facility] ADULT DENTAL [address] [place] [address] Nuvia Duarte 230 [place] [address] 09/03/2024 2:00 PM EDT Office Visit [facility] MEDICINE [address] [place] [address] Hallie Tapia MD 230 [place] [address] 09/27/2024 2:00 PM EDT Office Visit [facility] OPTOMETRY [address] [place] [address], [place] [address] Shaheed Martinezn, OD 230 [place] [address] 10/01/2024 11:00 AM EDT Clinical Support [facility] MEDICINE [address] [place] [address] Azeb Hall, RN [address] [place] [address] documented as of this encounter Goals Goal [...] on filedocumented in this encounter Care Teams Surgical Sales Representative Relationship Specialty Start Date End Date Sariah Vickers ANP [address] [place] [address] PCP - General Family Medicine 09/23/19 Yuri Pierre, MikeD 230 [place] [address] Pharmacist Internal Medicine 05/05/24 Basilio Hall MD [address] [place] [address] Cardiology 05/17/24 Ron Preciado MD [address] [place] [address] Pulmonary Disease 05/17/24 documented as of this encounter
--- OUTSIDE RECORDS SUMMARY | 2024-07-05 11:45 | XMS_ITS | Encounter Summary ---
Author Organization [employer] Address [address] [facility] [address] 7t [place] [address] Care Team Providers Care Relief Master Name Role Phone Sariah Vickers KAYLEE Primary Care Provider [phone] Yuri Pierre PharmD Unavailable [phone] Basilio Hall MD Unavailable [phone] Ron Preciado MD Unavailable [phone] Reason for Visit * Reason Comments Med Refill Encounter Details Date Type Department Care Team (Late st Contact Info) Description 03/04/2023 Refill [facility] WALK-IN CENTER [address] [place] [address] Brittney Nava MD [address] [place] [address] Social History Tobacco Use Types Packs/Day Years [...] Office Visit [facility] MEDICINE [address] [place] [address] Sariah Vickers, ANP [address] [place] [address] 07/16/2024 3:00 PM EDT Office Visit [facility] ADULT DENTAL [address] [place] [address] Yogesh Gomez, JOHN [address] [place] [address] 08/04/2024 10:00 AM EDT Medication Management [facility] MEDICINE [address] [place] [address] Yuri Pierre, PharmD [address] [place] [address] 08/04/2024 1:00 PM EDT Office Visit [facility] ADULT DENTAL [address] [place] [address] Nuvia Duarte [address] [place] [address] 09/03/2024 2:00 PM EDT Office Visit [facility] MEDICINE [address] [place] [address] Hallie Tapia MD [address] [place] [address] 09/27/2024 2:00 PM EDT Office Visit [facility] OPTOMETRY [address] [place] [address] Juan, Luisa, OD 230 [place] [address] 10/01/2024 11:00 AM EDT Clinical Support [facility] MEDICINE [address] [place] [address] Azeb Hall, MARTIN 505 [place] [address] documented as of this encounter Goals Goal [...] on filedocumented in this encounter Care Teams Relief Master Relationship Specialty Start Date End Date Sariah Vickers ANP [address] [place] [address] PCP - General Family Medicine 09/23/19 Yuri Pierre, PharmD [address] [place] [address] Pharmacist Internal Medicine 05/05/24 Basilio Hall MD [address] [place] [address] Cardiology 05/17/24 Ron Preciado MD [address] [place] [address] Pulmonary Disease 05/17/24 documented as of this encounter
--- OUTSIDE RECORDS SUMMARY | 2024-07-05 11:45 | XMS_ITS | Encounter Summary ---
Author Organization [employer] Address 75 [facility] 7t [place] [address] Care Team Providers Care Radiology Technologist Name Role Phone Sariah Vickers Primary Care Provider [phone] Yuri Pierre PharmD Unavailable [phone] Basilio Hall MD Unavailable [phone] Ron Preciado MD Unavailable [phone] Reason for Visit * Reason Comments Med Refill Encounter Details Date Type Department Care Team (Late st Contact Info) Description 05/21/2023 Refill [facility] [address] [place] [address] Sariah Vickers ANP 230 [place] [address] Neck pain Social History Tobacco Use Types [...] Description 07/15/2024 1:00 PM EDT Office Visit [facility] [address] [place] [address] Sariah Vickers ANP 230 [place] [address] 07/16/2024 3:00 PM EDT Office Visit [facility] ADULT DENTAL 230 [place] [address] Yogesh Gomez, DMD 230 [place] [address] 08/04/2024 10:00 AM EDT Medication Management [facility] [address] [place] [address] Yuri Pierre, PharmD 230 [place] [address] 08/04/2024 1:00 PM EDT Office Visit [facility] 230 [place] [address] Felicia Nuvia 230 [place] [address] 09/03/2024 2:00 PM EDT Office Visit [facility] 230 [place] [address] Hallie Tapia MD 230 [place] [address] 09/27/2024 2:00 PM EDT Office Visit [facility] [address] [place] [address] Luisa Martinez, SANDHYA 230 [place] [address] 10/01/2024 11:00 AM EDT Clinical Support [facility] [address] [place] [address] Azeb Hall, MARTIN 505 [place] [address] documented as of this encounter Goals Goal [...] Cervicalgia documented in this encounter Care Teams Radiology Technologist Relationship Specialty Start Date End Date Sariah Vickers ANP [address] [place] [address] PCP - General Family Medicine 09/23/19 Yuri Pierre PharmD [address] [place] [address] Pharmacist Internal Medicine 05/05/24 Basilio Hall MD 596 [place] [address] Cardiology 05/17/24 Ron Preciado MD [address] [place] [address] Pulmonary Disease 05/17/24 documented as of this encounter
--- OUTSIDE RECORDS SUMMARY | 2024-07-05 11:45 | XMS_ITS | Encounter Summary ---
Author Organization [employer] Address 75 [facility] 7t [place] [address] Care Team Providers Care Corporate Traffic Manager Name Role Phone Sariah Vickers Primary Care Provider Yuri Pierre PharmD Unavailable [phone] Basilio Hall MD Unavailable [phone] Ron Preciado MD Unavailable [phone] Reason for Visit * Reason Comments Med Refill Encounter Details Date Type Department Care Team (Late st Contact Info) Description 12/27/2022 Refill [facility] 230 [place] [address] Sariah Vickers ANP 230 [place] [address] Neck pain Social History Tobacco Use Types [...] 1:00 PM EDT Office Visit [facility] [address] [place] [address] Sariah Vickers, ANP 230 [place] [address] 07/16/2024 3:00 PM EDT Office Visit [facility] ADULT DENTAL [address] [place] [address] Yogesh Gomez, JOHN 230 [place] [address] 08/04/2024 10:00 AM EDT Medication Management [facility] [address] [place] [address] Yuri Pierre, PharmD [address] [place] [address] 08/04/2024 1:00 PM EDT Office Visit [facility] ADULT D[facility] [address] [place] [address] Nuvia Duarte 230 [place] [address] 09/03/2024 2:00 PM EDT Office Visit [facility] [address] [place] [address] Hallie Tapia MD 230 [place] [address] 09/27/2024 2:00 PM EDT Office Visit [facility] OPTOMET[facility] 267 [place] [address] Juan, Luisa, OD 230 [place] [address] 10/01/2024 11:00 AM EDT Clinical Support [facility] 230 [place] [address] Azeb Hall, MARTIN 505 [place] [address] documented as of this encounter Goals Goal [...] Cervicalgia documented in this encounter Care Teams Corporate Traffic Manager Relationship Specialty Start Date End Date Sariah Vickers ANP 230 [place] [address] PCP - General Family Medicine 09/23/19 Yuri Pierre, MikeD [address] [place] [address] Pharmacist Internal Medicine 05/05/24 Basilio Hall MD 596 [place] [address] Cardiology 05/17/24 Ron Preciado MD [address] [place] [address] Pulmonary Disease 05/17/24 documented as of this encounter
--- OUTSIDE RECORDS SUMMARY | 2024-07-05 11:45 | XMS_ITS | Encounter Summary ---
Author Organization [employer] Address [address] [facility] [address] 7t [place] [address] Care Team Providers Care Binder Stripper Machine Name Role Phone Sariah Vickers Primary Care Provider [phone] Yuri Pierre PharmD Unavailable [phone] Basilio Hall MD Unavailable [phone] Ron Preciado MD Unavailable [phone] Reason for Visit * Reason Comments Med Refill Encounter Details Date Type Department Care Team (Late st Contact Info) Description 01/06/2024 Refill [facility] [address] [place] [address] Sariah Vickers ANP 230 [place] [address] Cervicalgia Social History Tobacco Use Types Packs/Day [...] PM EDT Office Visit [facility] [address] [place] [address] Sariah Vickers, ANP 230 [place] [address] 07/16/2024 3:00 PM EDT Office Visit [facility] ADULT DENTAL [address] [place] [address] Yogesh Gomez, DMD 230 [place] [address] 08/04/2024 10:00 AM EDT Medication Management [facility] [address] [place] [address] Yuri Pierre, PharmD 230 [place] [address] 08/04/2024 1:00 PM EDT Office Visit [facility] ADULT DENTAL [address] [place] [address] Nuvia Duarte 230 [place] [address] 09/03/2024 2:00 PM EDT Office Visit [facility] 230 [place] [address] Hallie Tapia MD 230 [place] [address] 09/27/2024 2:00 PM EDT Office Visit [facility] 267 [place] [address] Luisa [place], OD 230 [place] [address] 10/01/2024 11:00 AM EDT Clinical Support [facility] 230 [place] [address] Azeb Hall RN 505 [place] [address] documented as of this encounter Goals Goal [...] documented as of this encounter Care Teams Binder Stripper Machine Relationship Specialty Start Date End Date Sariah Vickers ANP [address] [place] [address] PCP - General Family Medicine 09/23/19 Yuri Pierre, MikeD [address] [place] [address] Pharmacist Internal Medicine 05/05/24 Basilio Hall MD 5[address] [place] [address] Cardiology 05/17/24 Ron Preciado MD [address] [place] [address] Pulmonary Disease 05/17/24 documented as of this encounter
--- OUTSIDE RECORDS SUMMARY | 2024-07-05 11:45 | XMS_ITS | Encounter Summary ---
Author Organization [employer] Address [address] [facility] [address] 7t [place] [address] Care Team Providers Care Electrical Assemblies Supervisor Name Role Phone Sariah Vickers Primary Care Provider [phone] Yuri Pierre PharmD Unavailable [phone] Basilio Hall MD Unavailable [phone] Ron Preciado MD Unavailable [phone] Reason for Visit * Reason Comments Med Refill Encounter Details Date Type Department Care Team (Late st Contact Info) Description 05/23/2024 Refill [facility] [address] [place] [address] Sariah Vickers ANP 230 [place] [address] Cervicalgia Social History Tobacco Use Types Packs/Day [...] Description 07/15/2024 1:00 PM EDT Office Visit [facility] [address] [place] [address] Sariah Vickers, ANP 230 [place] [address] 07/16/2024 3:00 PM EDT Office Visit [facility] ADULT DENTAL [address] [place] [address] Yogesh Gomez, DMD 230 [place] [address] 08/04/2024 10:00 AM EDT Medication Management [facility] [address] [place] [address] Yuri Pierre, PharmD 230 [place] [address] 08/04/2024 1:00 PM EDT Office Visit [facility] ADULT D[facility] [address] [place] [address] Nuvia Duarte 230 [place] [address] 09/03/2024 2:00 PM EDT Office Visit [facility] 230 [place] [address] Hallie Tapia MD 230 [place] [address] 09/27/2024 2:00 PM EDT Office Visit [facility] 267 [place] [address] Luisa [place], OD 230 [place] [address] 10/01/2024 11:00 AM EDT Clinical Support [facility] 230 [place] [address] Azeb Hall RN 505 [place] [address] documented as of this encounter Goals Goal Patient Goal Type Associated Problems Recent Progress Patient-Stated? Author Blood Pressure < 140/90 Blood Pressure 142/80(2024 11:35 AM EDT) No PhanisAida Cheng, PharmD Record Your Blood Sugar As Directed General No Phnais-Aida Medina, PharmD Hemoglobin A1c < 7 Result Component 6.6( 3:08 PM EDT) No PhanisAida Cheng PharmD documented as of this encounter Visit Diagnoses Diagnosis Cervicalgia documented in this encounter Additional Health Concerns Assessment Noted Time PHQ-9 Depression Total Score: 12 024 2:58 PM EDT documented as of this encounter Care Teams Electrical Assemblies Supervisor Relationship Specialty Start Date End Date Sariah Vickers ANP [address] [place] [address] PCP - General Family Medicine 09/23/19 Yuri Pierre, MikeD [address] [place] [address] Pharmacist Internal Medicine 05/05/24 Basilio Hall MD 596 [place] [address] Cardiology 05/17/24 Ron Preciado MD [address] [place] [address] Pulmonary Disease 05/17/24 documented as of this encounter
--- OUTSIDE RECORDS SUMMARY | 2024-07-05 11:45 | XMS_ITS | Encounter Summary ---
Author Organization [employer] Address 75 [facility] 7t [place] [address] Care Team Providers Care Spinning Lathe Operator Hydraulic Name Role Phone Sariah Vickers Primary Care Provider [phone] Yuri Pierre PharmD Unavailable [phone] Basilio Hall MD Unavailable [phone] Ron Preciado MD Unavailable [phone] Reason for Visit * Reason Onset Date Comments Med Refill 01/09/2024 Encounter Details Date Type Department Care Team (Late st Contact Info) Description 01/09/2024 Telephone [facility] 230 [place] [address] Sariah Vickers ANP 230 [place], [place] [phone] Med Refill Social History Tobacco Use Types [...] PM EDT Office Visit [facility] [address] [place] [address] Sariah Vickers, ANP 230 [place] [address] 07/16/2024 3:00 PM EDT Office Visit [facility] [address] [place] [address] Yogesh Gomez, DMD 230 [place] [address] 08/04/2024 10:00 AM EDT Medication Management [facility] [address] [place] [address] Yuri Pierre, PharmD [address] [place] [address] 08/04/2024 1:00 PM EDT Office Visit [facility] [address] [place] [address] Nuvia Duarte 230 [place] [address] 09/03/2024 2:00 PM EDT Office Visit [facility] 230 [place] [address] Hallie Tapia MD 230 [place] [address] 09/27/2024 2:00 PM EDT Office Visit [facility] 267 [place] [address] Luisa [place], OD 230 [place] [address] 10/01/2024 11:00 AM EDT Clinical Support [facility] 230 [place] [address] Azeb Hall RN 505 [place] [address] documented as of this encounter Goals Goal Patient Goal Type Associated Problems Recent Progress Patient-Stated? Author Blood Pressure < 140/90 Blood Pressure 142/80(2024 11:35 AM EDT) No Phanis-GambAida buck, PharmD Record Your Blood [...] documented as of this encounter Care Teams Spinning Lathe Operator Hydraulic Relationship Specialty Start Date End Date Sariah Vickers ANP [address] [place] [address] PCP - General Family Medicine 09/23/19 Yuri Pierre, Dileep [address] [place] [address] Pharmacist Internal Medicine 05/05/24 Basilio Hall MD 596 [place] [address] Cardiology 05/17/24 Ron Preciado MD [address] [place] [address] Pulmonary Disease 05/17/24 documented as of this encounter
--- OUTSIDE RECORDS SUMMARY | 2024-07-05 11:45 | XMS_ITS | Encounter Summary ---
Author Organization [employer] Address 75 [facility] 7t [place] [address] Care Team Providers Care Chief Enterprise Architect Name Role Phone Sariah Vickers Primary Care Provider [phone] Yuri Pierre PharmD Unavailable [phone] Basilio Hall MD Unavailable [phone] Ron Preciado MD Unavailable [phone] Reason for Visit * Reason Comments Med Refill Encounter Details Date Type Department Care Team (Late st Contact Info) Description 03/07/2023 Refill [facility] 230 [place] [address] Sariah Vickers ANP 230 [place] [address] Vertigo Social History Tobacco Use Types Packs/Day [...] Description 07/15/2024 1:00 PM EDT Office Visit [facility] [address] [place] [address] Sariah Vickers, ANP 230 [place] [address] 07/16/2024 3:00 PM EDT Office Visit [facility] ADULT DENTAL [address] [place] [address] Yogesh Gomez, JOHN 230 [place] [address] 08/04/2024 10:00 AM EDT Medication Management [facility] [address] [place] [address] Yuri Pierre, PharmD [address] [place] [address] 08/04/2024 1:00 PM EDT Office Visit [facility] AD[facility] D[facility] [address] [place] [address] Nuvia Duarte 230 [place] [address] 09/03/2024 2:00 PM EDT Office Visit [facility] [address] [place] [address] [phone] Hallie Tapia MD 230 [place] [address] 09/27/2024 2:00 PM EDT Office Visit [facility] [address] [place] [address] Juan, Luisa, OD 230 [place] [address] 10/01/2024 11:00 AM EDT Clinical Support [facility] [address] [place] [address] Azeb Hall, MARTIN 505 [place] [address] documented as of this encounter Goals Goal [...] giddiness documented in this encounter Care Teams Chief Enterprise Architect Relationship Specialty Start Date End Date Sariah Vickers ANP 230 [place] [address] PCP - General Family Medicine 09/23/19 Yuri Pierre, MikeD 230 [place] [address] Pharmacist Internal Medicine 05/05/24 Basilio Hall MD [address] [place] [address] Cardiology 05/17/24 Ron Preciado MD [address] [place] [address] Pulmonary Disease 05/17/24 documented as of this encounter
--- OUTSIDE RECORDS SUMMARY | 2024-07-05 11:45 | XMS_ITS | Encounter Summary ---
Author Organization [employer] Address [address] [facility] [address] 7t [place] [address] Care Team Providers Care Cooker Chip Name Role Phone Sariah Vickers KAYLEE Primary Care Provider [phone] Yuri Pierre PharmD Unavailable [phone] Basilio Hall MD Unavailable [phone] Ron Preciado MD Unavailable [phone] Encounter Details Date Type Department Care Team (Latest Contact Info) Description 07/02/2024 Travel Social History Tobacco Use Types Packs/Day [...] Description 07/15/2024 1:00 PM EDT Office Visit [facility] [address] [place] [address] Sariah Vickers ANP 230 [place] [address] 07/16/2024 3:00 PM EDT Office Visit [facility] ADULT DENTAL [address] [place] [address] Yogesh Gomez, JOHN 230 [place] [address] 08/04/2024 10:00 AM EDT Medication Management [facility] [address] [place] [address] Yuri Pierre, PharmD 230 [place] [address] 08/04/2024 1:00 PM EDT Office Visit [facility] ADULT DENTAL 230 [place] [address] Nuvia Duarte 230 [place] [address] 09/03/2024 2:00 PM EDT Office Visit [facility] MED[facility] [address] [place] [address] Hallie Tapia MD 230 [place] [address] 09/27/2024 2:00 PM EDT Office Visit [facility] OPTOMETRY [address] [place] [address] Luisa [place], OD 230 [place] [address] 10/01/2024 11:00 AM EDT Clinical Support [facility] 230 [place] [address] Azeb Hall, MARTIN 505 [place] [address] documented as of this encounter Goals Goal [...] documented as of this encounter Care Teams Cooker Chip Relationship Specialty Start Date End Date Sariah Vickers ANP 230 [place] [address] PCP - General Family Medicine 09/23/19 Yuri Pierre, PharmD 230 [place] [address] Pharmacist Internal Medicine 05/05/24 Basilio Hall MD [address] [place] [address] Cardiology 05/17/24 Ron Preciado MD [address] [place] [address] Pulmonary Disease 05/17/24 documented as of this encounter
--- OUTSIDE RECORDS SUMMARY | 2024-07-05 11:46 | XMS_ITS | Data Portability ---
Author Organization [employer] Address [address] [place] [phone] Care Team Providers Care Coupling 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 Name Role Phone HIM CCA OTHER Assessment [...] Name and Address Organization Details Recorded Time 97705 aspirin medicatio n Not available Not available Not available 05/29/2024 1191 RxNorm Not Available [employer] - production 13:30:18 [address] naproxen medicatio n Not available Not available [...] Not Available Not Available No t Available [facility] 10 billion cell-200 [...] Available No t Available [employer] [place] USE DIRECTED TO TEST BLOOD SUGAR EVERY [...] SNOMED-CT Code Diagnosis ICD10 Code Diagnosis Note [id number] Kathy Gonzalez MD Main - [address] [address] 05/29/2024 16:18:16 05/30/2024 23:53:07 Wound finding [id number] Z51.89 Evaluation in the field was performed by my software test technician colleague, as noted above, I provided [...] Recorded Advance Directives Directive None Recorded Payers Insurance Date Sequence Insurance Name Policy Number Policy Laws Covered Member ID Laws Member ID Guarantor Name 05/29/2024 1 [employer] - DOS ON OR AFTER 2022 - DUAL ELIGIBLE - CORRECTION OPTIONS AND ONE CARE (MEDICARE REPLACEMENT/ADV ANTAGE - HMO) Nuvia Da Silva [id number] Nuvia Da Silva Notes Date Note Type Note Provider Name and Address Organization Details Recorded Time 05/29/2024 text/html CRC Nurse Triage Notes (Tania Kan): Reason For Request: wound care after surgery Chief Complaints: Wound Care PMH: Diabetes Mellitus Type 2, Hyperlipidemia, Hypertension, Kidney Stones, Hysterectomy, Hypothyroidism, Asthma PMH Reviewed at 05/29/2024 - :30 Allergies Reviewed at 05/29/2024:30 Comments: Referral taken via Flat Lock 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, patient calling in to place [...] .................. .................. .................. .................. .................. .................. ............... Doll Dresser Note From Albert Murphy: Arrived to find patient ambulating in her apartment. Patient AOX4, GCS 15, skin pink warm and dry. Patient Irish speaking only. Trucker Hand line used. Patient had hernia surgery on and is wondering if the steri strips are suppose to remain or if she needs to remove them. Educated patient that they stay and will fall off on their own. VS as noted. [facility] came on and was able to interact with patient. answered all questions for pt. Patient reassured. Red flags went over with pt. Patient denies any cp, sob, fevers. Incision looks clean and intact. .................. .................. .................. .................. .................. .................. .................. ............... [facility] Consulted: Kathy Gonzalez .................. .................. .................. .................. .................. .................. .................. ............... Disposition: Fulfilled Kathy Gonzalez MD [address] [facility],[address], [place], [address], [employer] - [email or web address] STACK 05/29/2024 16:25:31 OBGyn Episode No OBEpisode recorded.
--- OUTSIDE RECORDS SUMMARY | 2024-07-05 11:46 | XMS_ITS | Encounter Summary ---
Author Organization [employer] Address 75 [facility] 7t [place] [address] Care Team Providers Care Payroll Master Name Role Phone Sariah Vickers Primary Care Provider [phone] Yuri Pierre PharmD Unavailable [phone] Basilio Hall MD Unavailable [phone] Ron Preciado MD Unavailable [phone] Reason for Visit * Reason Onset Date Comments Med Refill Durable Medical Equipment 07/15/2023 Foam M attress/Raised Toilet Seat Encounter Details Date Type Department Care Team (Late st Contact Info) Description 07/15/2023 Refill [facility] MED[facility]INE 230 [place], [place] [phone] Sariah Vickers ANP 230 [place] [address] Neck pain Social History Tobacco Use Types [...] Please see request sent via email by [facility] Management Professor Arlin Baker. Please Advise. Good morning, Our [...] 07/15/2024 1:00 PM EDT Office Visit [facility] MEDICINE 230 [place] [address] Sariah Vickers, ANP 230 [place] [address] 07/16/2024 3:00 PM EDT Office Visit [facility] ADULT DENTAL 230 [place] [address] Yogesh Gomez, JOHN 230 [place] [address] 08/04/2024 10:00 AM EDT Medication Management [facility] MED[facility]INE [address] [place] [address] Yuri Pierre, MikeD [address] [place] [address] 08/04/2024 1:00 PM EDT Office Visit [facility] ADULT DENTAL 230 [place] [address] Nuvia Duarte 230 [place] [address] 09/03/2024 2:00 PM EDT Office Visit [facility] MEDICINE [address] [place] [address] Hallie Tapia MD 230 [place] [address] 09/27/2024 2:00 PM EDT Office Visit [facility] OPTOMETRY [address] [place] [address] Luisa Martinez OD 230 [place] [address] 10/01/2024 11:00 AM EDT Clinical Support [address] [address] Azeb Hall RN 505 [place] [address] documented as of this encounter Goals Goal Patient Goal Type Associated Problems Recent Progress Patient-Stated? Author Blood Pressure < 140/90 Blood Pressure 142/80(2024 11:35 AM EDT) No Aida Ragland, PharmD Record Your Blood Sugar As Directed General No Aida Ragland PharmD Hemoglobin A1c < 7 Result Component 6.6( 5 3:08 PM EDT) No Aida Ragland PharmD documented as of this encounter Visit Diagnoses Diagnosis Neck pain Cervicalgia documented in this encounter Additional Health Concerns Assessment Noted Time PHQ-9 Depression Total Score: 2 06/23/19 24 2:10 PM EDT documented as of this encounter Care Teams Payroll Master Relationship Specialty Start Date End Date Sariah Vickers, KAYLEE 230 [place] [address] PCP - General Family Medicine 09/23/19 Yuri Pierre, MikeD 230 [place] [address] Pharmacist Internal Medicine 05/05/24 Basilio Hall MD 5[address] [place] [address] Cardiology 05/17/24 Ron Preciado MD [address] [place] [address] Pulmonary Disease 05/17/24 documented as of this encounter
--- OUTSIDE RECORDS SUMMARY | 2024-07-05 11:46 | XMS_ITS | Encounter Summary ---
Author Organization [employer] Address 75 [facility] 7t [place] [address] Care Team Providers Care Med Care Manager Name Role Phone Sariah Vickers Primary Care Provider Yuri Pierre PharmD Unavailable [phone] Basilio Hall MD Unavailable [phone] Ron Preciado MD Unavailable [phone] Reason for Visit * Reason Comments Med Refill Encounter Details Date Type Department Care Team (Late st Contact Info) Description 07/17/2022 Refill [facility] MEDICINE [address] [place] [address] Sariah Vickers ANP [address] [place] [address] Neck pain Social History Tobacco Use Types [...] Office Visit [facility] MEDICINE [address] [place] [address] Sariah Vickers ANP [address] [place] [address] 07/16/2024 3:00 PM EDT Office Visit [facility] ADULT DENTAL [address] [place] [address] Yogesh Gomez, JOHN [address] [place] [address] 08/04/2024 10:00 AM EDT Medication Management [facility] [address] [place] [address] Yuri Pierre, PharmD [address] [place] [address] 08/04/2024 1:00 PM EDT Office Visit [facility] ADULT DENTAL [address] [place] [address] Nuvia Duarte [address] [place] [address] 09/03/2024 2:00 PM EDT Office Visit [facility] [address] [place] [address] Halile Tapia MD [address] [place] [address] 09/27/2024 2:00 PM EDT Office Visit [facility] OPTOMETRY [address] [place] [address] Luisa Martinez, SANDHYA 230 [place] [address] 10/01/2024 11:00 AM EDT Clinical Support [address] [address] Azeb Hall, RN 505 [place] [address] documented as of this encounter Visit Diagnoses Diagnosis Neck pain Cervicalgia documented in this encounter Care Teams Med Care Manager Relationship Specialty Start Date End Date Sariah Vickers ANP [address] [place] [address] PCP - General Family Medicine 09/23/19 Yuri Pierre, MikeD [address] [place] [address] Pharmacist Internal Medicine 05/05/24 Basilio Hall MD [address] [place] [address] Cardiology 05/17/24 Ron Preciado MD [address] [place] [address] Pulmonary Disease 05/17/24 documented as of this encounter
--- OUTSIDE RECORDS SUMMARY | 2024-07-05 11:46 | XMS_ITS | Encounter Summary ---
Author Organization [employer] Address 75 [facility] 7t [place] [address] Care Team Providers Care Flight Crew Ordnanceman Name Role Phone Sariah Vickers Primary Care Provider [phone] Yuri Pierre PharmD Unavailable [phone] Basilio Hall MD Unavailable [phone] Ron Preciado MD Unavailable [phone] Reason for Visit * Reason Comments Med Refill Encounter Details Date Type Department Care Team (Late st Contact Info) Description 07/10/2023 Refill [facility] WALK-IN CENTER [address] [place] [address] Sariah Vickers ANP [address] [place] [address] Chronic SI joint pain Social History Tobacco [...] 1:00 PM EDT Office Visit [facility] MEDICINE [address] [place] [address] Sariah Vickers, ANP 230 [place] [address] 07/16/2024 3:00 PM EDT Office Visit [facility] ADULT DENTAL [address] [place] [address] Yogesh Gomez, DMD [address] [place] [address] 08/04/2024 10:00 AM EDT Medication Management [facility] MEDICINE [address] [place] [address] Yuri Pierre, PharmD [address] [place] [address] 08/04/2024 1:00 PM EDT Office Visit [facility] ADULT DENTAL [address] [place] [address] Nuvia Duarte [address] [place] [address] 09/03/2024 2:00 PM EDT Office Visit [facility] MEDICINE [address] [place] [address] Hallie Tapia MD 230 [place] [address] 09/27/2024 2:00 PM EDT Office Visit [facility] OPTOMETRY [address] [place] [address] Luisa Martinez, OD 230 [place] [address] 10/01/2024 11:00 AM EDT Clinical Support [facility] MEDICINE [address] [place] [address] Azeb Hall, MARTIN 505 [place] [address] documented as of this encounter Goals Goal [...] as of this encounter Care Teams Flight Crew Ordnanceman Relationship Specialty Start Date End Date Sariah Vickers ANP 230 [place] [address] PCP - General Family Medicine 09/23/19 Yuri Pierre, MikeD [address] [place] [address] Pharmacist Internal Medicine 05/05/24 Basilio Hall MD [address] [place] [address] Cardiology 05/17/24 Ron Preciado MD [address] [place] [address] Pulmonary Disease 05/17/24 documented as of this encounter
--- OUTSIDE RECORDS SUMMARY | 2024-07-05 11:46 | XMS_ITS | Encounter Summary ---
Author Organization [employer] Address 75 [facility] 7t [place] [address] Care Team Providers Care Metal Washing 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 Name Role Phone Sariah Vickers Primary Care Provider [phone] Yuri Pierre PharmD Unavailable [phone] Basilio Hall MD Unavailable [phone] Ron Preciado MD Unavailable [phone] Reason for Visit * Reason Comments Med Refill Encounter Details Date Type Department Care Team (Late st Contact Info) Description 06/30/2023 Refill [facility] MEDICINE [address] [place] [address] Sariah Vickers ANP [address] [place] [address] Neck pain Social History Tobacco Use Types [...] Description 07/15/2024 1:00 PM EDT Office Visit [facility] MEDICINE [address] [place] [address] Sariah Vickers, ANP 230 [place] [address] 07/16/2024 3:00 PM EDT Office Visit [facility] ADULT DENTAL [address] [place] [address] Yogesh Gomez, DMD [address] [place] [address] 08/04/2024 10:00 AM EDT Medication Management [facility] MEDICINE [address] [place] [address] Yuri Pierre, PharmD 230 [place] [address] 08/04/2024 1:00 PM EDT Office Visit [facility] ADULT DENTAL [address] [place] [address] Nuvia Duarte 230 [place] [address] 09/03/2024 2:00 PM EDT Office Visit [facility] MEDICINE [address] [place] [address] Hallie Tapia MD 230 [place] [address] 09/27/2024 2:00 PM EDT Office Visit [facility] OPTOMETRY [address] [place] [address] Luisa Martinez, OD 230 [place] [address] 10/01/2024 11:00 AM EDT Clinical Support [facility] MEDICINE [address] [place] [address] Azeb Hall RN [address] [place] [address] documented as of this encounter Goals Goal [...] as of this encounter Care Teams Metal Washing 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 Relationship Specialty Start Date End Date Sariah Vickers ANP [address] [place] [address] PCP - General Family Medicine 09/23/19 Yuri Pierre, MikeD [address] [place] [address] Pharmacist Internal Medicine 05/05/24 Basilio Hall MD [address] [place] [address] Cardiology 05/17/24 Ron Preciado MD [address] [place] [address] Pulmonary Disease 05/17/24 documented as of this encounter
--- OUTSIDE RECORDS SUMMARY | 2024-07-05 11:46 | XMS_ITS | Encounter Summary ---
Author Organization [employer] Address 75 [facility] 7t [place] [address] Care Team Providers Care Repairer Name Role Phone Sariah Vickers Primary Care Provider [phone] Yuri Pierre PharmD Unavailable [phone] Basilio Hall MD Unavailable Ron Preciado MD Unavailable [phone] Reason for Visit * Reason Comments Med Refill Encounter Details Date Type Department Care Team (Late st Contact Info) Description 08/14/2022 Refill [facility] CHC MED & PEDS [address] [place] [address] Sariah Vickers ANP [address] [place] [address] Severe persistent asthma without complication Social History [...] Office Visit [facility] MEDICINE [address] [place] [address] Sariah Vickers, KAYLEE 230 [place] [address] 07/16/2024 3:00 PM EDT Office Visit [facility] ADULT DENTAL 230 [place] [address] Yogesh Gomez, JOHN 230 [place] [address] 08/04/2024 10:00 AM EDT Medication Management [facility] MEDICINE [address] [place] [address] Yuri Pierre, PharmD 230 [place] [address] 08/04/2024 1:00 PM EDT Office Visit [facility] ADULT DENTAL [address] [place] [address] Nuvia Duarte [address] [place] [address] 09/03/2024 2:00 PM EDT Office Visit [facility] MEDICINE [address] [place] [address] Hallie Tapia MD 230 [place] [address] 09/27/2024 2:00 PM EDT Office Visit [facility] OPTOMETRY [address] [place] [address] Luisa Martinez, OD 230 [place] [address] 10/01/2024 11:00 AM EDT Clinical Support [facility] MEDICINE [address] [place] [address] Azeb Hall, RN 505 [place] [address] documented as of this encounter Visit Diagnoses Diagnosis Severe persistent asthma without complication documented in this encounter Care Teams Repairer Relationship Specialty Start Date End Date Sariah Vickers ANP 230 [place] [address] PCP - General Family Medicine 09/23/19 Yuri Pierre, MikeD 230 [place] [address] Pharmacist Internal Medicine 05/05/24 Basilio Hall MD [address] [place] [address] Cardiology 05/17/24 Ron Preciado MD [address] [place] [address] Pulmonary Disease 05/17/24 documented as of this encounter
--- OUTSIDE RECORDS SUMMARY | 2024-07-05 11:46 | XMS_ITS | Encounter Summary ---
Author Organization [employer] Address 75 [facility] 7t [place] [address] Care Team Providers Care Hand Braille Transcriber Name Role Phone Sariah Vickers Primary Care Provider [phone] Yuri Pierre PharmD Unavailable [phone] Basilio Hall MD Unavailable [phone] Ron Preciado MD Unavailable [phone] Reason for Visit * Reason Comments Med Refill Encounter Details Date Type Department Care Team (Late st Contact Info) Description 07/12/2022 Refill [facility] MEDICINE [address] [place] [address] Sariah Vickers ANP [address] [place] [address] Social History Tobacco Use Types Packs/Day Years [...] Description 07/15/2024 1:00 PM EDT Office Visit [facility] MEDICINE [address] [place] [address] Sariah Vickers ANP [address] [place] [address] 07/16/2024 3:00 PM EDT Office Visit [facility] ADULT DENTAL [address] [place] [address] Yogesh Gomez, JOHN [address] [place] [address] 08/04/2024 10:00 AM EDT Medication Management [facility] MEDICINE [address] [place] [address] Yuri Pierre, PharmD 230 [place] [address] 08/04/2024 1:00 PM EDT Office Visit [facility] ADULT DENTAL 230 [place] [address] Nuvia Duarte [address] [place] [address] 09/03/2024 2:00 PM EDT Office Visit [facility] 230 [place] [address] Hallie Tapia MD 230 [place] [address] 09/27/2024 2:00 PM EDT Office Visit [facility] OPTOMETRY [address] [place] [address] Luisa Martinez, SANDHYA 230 [place] [address] 10/01/2024 11:00 AM EDT Clinical Support [facility] MEDICINE [address] [place] [address] Azeb Hall, RN 505 [place] [address] documented as of this encounter Visit Diagnoses Not on filedocumented in this encounter Care Teams Hand Braille Transcriber Relationship Specialty Start Date End Date Sariah Vickers ANP [address] [place] [address] PCP - General Family Medicine 09/23/19 Yuri Pierre, MikeD [address] [place] [address] Pharmacist Internal Medicine 05/05/24 Basilio Hall MD [address] [place] [address] Cardiology 05/17/24 Ron Preciado MD [address] [place] [address] Pulmonary Disease 05/17/24 documented as of this encounter
== END 2024-07-05 11:25 | disposition home or self-care (01) ==
LOC: HO.HUSH 10:59
PROVIDERS: PCP Nurse Practitioner Primary Care; Visit Provider Nurse Practitioner Family
DX: N20.0 Calculus of kidney (principal); N28.1 Cyst of kidney, acquired
CPT/HCPCS: 99213

== ENCOUNTER 2024-07-22 09:43 | Outpatient (REF) | payer OTHER, SELFPAY ==
--- NOTE | ~2024-07-22 | XR_ITS ---
EXAMINATION: XR CHEST 2 VIEWS HISTORY: cough and chest tightness COMPARISON: Comparison is made with the prior examination dated 04/20/2024. FINDINGS: PA and lateral views of the chest are submitted. The lungs are expanded and clear. There is no pleural effusion, pneumothorax, or pulmonary vascular congestion. The heart is normal in size. The aorta is calcified and tortuous. There is mild degenerative disc disease of the spine. XR/XR chest 2V IMPRESSION: No acute cardiopulmonary abnormality. Electronically signed by: Kelvin Eldridge MD 07/22/2024 10:25 AM EDT
--- OUTSIDE RECORDS SUMMARY | 2024-07-22 11:02 | XMS_ITS | Encounter Summary ---
Author Organization [employer] Address 75 [facility] 7t [place] [address] Care Team Providers Care Propellant Charge Zone Assembler Name Role Phone Sariah Vickers Primary Care Provider [phone] Yuri Pierre PharmD Unavailable [phone] Basilio Hall MD Unavailable [phone] Ron Preciado MD Unavailable [phone] Reason for Visit * Reason Comments Med Refill Encounter Details Date Type Department Care Team (Late st Contact Info) Description 09/13/2022 Refill [facility] CHC MED & PEDS [address] [place] [address] Sariah Vickers ANP 230 [place] [address] Severe persistent allergic asthma without complication Social [...] Care Team (Late st Contact Info) Description 08/04/2024 10:00 AM EDT Medication Management [facility] MEDICINE 230 [place] [address] Yuri Pierre, Dileep 230 [place] [address] 08/04/2024 1:00 PM EDT Office Visit [facility] ADULT DENTAL 230 [place] [address] Felicia, Nuvia 230 [place] [address] 09/27/2024 2:00 PM EDT Office Visit [facility] OPTOMETRY [address] [place] [address] Luisa Martinez, OD [address] [place] [address] 10/01/2024 11:00 AM EDT Clinical Support [facility] MEDICINE 230 [place] [address] Azeb Hall, MARTIN 505 [place] [address] documented as of this encounter Visit Diagnoses Diagnosis Severe persistent allergic asthma without complication documented in this encounter Care Teams Propellant Charge Zone Assembler Relationship Specialty Start Date End Date Sariah Vickers ANP [address] [place] [address] PCP - General Family Medicine 09/23/19 Yuri Pierre, PharmD [address] [place] [address] Pharmacist Internal Medicine 05/05/24 Basilio Hall MD [address] [place] [address] Cardiology 05/17/24 Ron Preciado MD [address] [place], [place] [address] Pulmonary Disease 05/17/24 documented as of this encounter
== END 2024-07-22 09:44 | disposition home or self-care (01) ==
LOC: HO.HHCX 09:43
PROVIDERS: Visit Provider Family Medicine
DX: J44.1 Chronic obstructive pulmonary disease with (acute) exacerbation (principal)
CPT/HCPCS: 71046

== ENCOUNTER → 2024-07-22 09:46 | Outpatient (BNV) | payer OTHER, SELFPAY | PROVIDERS: Visit Provider Radiology Diagnostic Radiology | DX: R05.9 Cough, unspecified (principal); R07.89 Other chest pain | CPT/HCPCS: 71046 ==

== ENCOUNTER 2024-07-26 12:30 | Outpatient (AMB) | payer OTHER, SELFPAY ==
--- NOTE | 2024-07-26 12:52 | A.OFFVIS_ITS ---
Vital Signs 07/26/24 12:53 Height 5 ft 5 in Weight 198 lb BMI 32.9 BP 122/70 Blood Pressure Location Rt brachial Position Sitting Pulse 79 Pulse Source Pulse Oximeter Pulse Oximetry (%) 97 Oxygen Delivery Method Room Air Intake Visit Reasons: asthma Township Supervisor Required: Yes Township Supervisor Name: Samantha Palacios.L.Estefania Allergies Fish Containing Products Allergy (Intermediate, Verified 07/26/24 13:03) Swelling vancomycin Allergy (Intermediate, Verified 07/26/24 13:03) Rash aspirin [Aspirin] Allergy (Mild, Verified 07/26/24 13:03) ITCHY THROAT azithromycin Allergy (Unknown, Verified 07/26/24 13:03) Unknown naproxen Allergy (Unknown, Verified 07/26/24 13:03) Unknown simvastatin Allergy (Unknown, Verified 07/26/24 13:03) Unknown onion [ONION] Adverse Reaction (Mild, Verified 07/26/24 13:03) RED FACE HPI HPI asthma: Details: 63-year-old lady, former 30+ pack-year smoker, quit 2014 followed for severe persistent allergic asthma/COPD overlap syndrome and environmental allergies. She continues on Wixela, Spiriva, albuterol MDI, and Xolair with good symptomatic control. She denies recent acute exacerbations. She has been having somewhat worse symptoms with seasonal allergies for which her primary care put her on prednisone course. [facility] Medical History Severe persistent asthma NIDDY (non-insulin dependent diabetes mellitus in young) COPD (chronic obstructive pulmonary disease) Cellulitis of labia Pulmonary hypertension, pre-operative cardiovascular examination Arthritis Thyroid disease Bilateral renal cysts Right bundle branch block Dental calculus Depression Varicose veins of left lower extremity Ectatic aorta Paresthesia Paresis of one side of face Neck pain Insomnia disorder, with non-sleep disorder mental comorbidity Increased immunoglobulin Constipation Aneurysm of left internal carotid artery Abnormal ultrasound of kidney Type 2 diabetes mellitus History of kidney stones Abnormal finding on ultrasound Tear of medial meniscus of left knee Leg pain Kidney stone on left side MOCK (dyspnea on exertion) Patellofemoral arthritis of left knee Trochanteric bursitis of right hip COVID-19 Carpal tunnel syndrome of right wrist Renal calculi UTI (urinary tract infection) Allergic rhinitis Anxiety and depression Fibromyalgia HTN (hypertension) PTSD (post-traumatic stress disorder) Preop pulmonary/respiratory exam Vertigo Diabetes Asthma Chest pain Tubular adenoma of colon Vulvovaginitis Acute asthma exacerbation Candidiasis of mouth and esophagus Bronchitis Spondylosis of cervical region without myelopathy or radiculopathy Bronchitis COPD exacerbation Yeast infection Papanicolaou smear for cervical cancer screening Bilateral hand pain Bilateral knee pain Low vitamin D level Dry mouth Environmental allergies Non-toxic multinodular goiter Hypothyroidism Type 2 diabetes mellitus with hyperglycemia DVT (deep venous thrombosis) Menopausal state Cocaine abuse Surgical History Encounter for postoperative wound check Status post umbilical hernia repair, follow-up exam Carbuncle and furuncle of buttock Carbuncle of abdominal wall Umbilical hernia Umbilical hernia Hx of carpal tunnel repair History of esophagogastroduodenoscopy (EGD) H/O colonoscopy with polypectomy History of selective injection of anesthetic agent around lumbar nerve root Hx of right breast biopsy History of hysterectomy History of lithotripsy Family History Father No problems noted. 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 Female Reproductive History Menstrual Age of Menarche: 10 Review of Systems Const Denies daytime sleepiness, Denies excessive sweating, Denies fatigue, Denies fever(s), Denies lethargy, Denies malaise, Denies night sweats, Denies snoring and Denies weight loss Eyes Denies blurry vision and Denies itchy eyes ENT Denies nasal congestion, Denies post nasal drip, Denies sinus pain, Denies sinus pressure and Denies other ( Thrush) Card Denies chest pain, Denies pedal edema, Denies dyspnea, Denies orthopnea and Denies paroxysmal nocturnal dyspnea Resp Denies cough, Denies hemoptysis, Denies excessive phlegm production, Denies dyspnea, Denies snoring and Denies wheezing GI Denies abdominal pain and Denies heartburn Musc Denies myalgias, Denies arthralgias and Denies joint swelling Skin/Breast Denies rash Neuro Denies memory loss and Denies seizure-like activity Psych Denies abnormal sleep pattern, Denies anxiety and Denies memory loss Endo Denies excessive sweating, Denies fatigue and Denies heat intolerance Bruno/Lymph Denies easy bruising Aller/Immun Denies itchy eyes, Denies seasonal rhinorrhea and Denies wheezing Physical Exam Vital Signs: Last Vital Signs Pulse 79 07/26/24 12:53 BP 122/70 07/26/24 12:53 Pulse Ox 97 07/26/24 12:53 Oxygen Delivery Method Room Air 07/26/24 12:53 BMI result Body Mass Index 32.9 Const General: no acute distress and alert Nutritional Appearance: not obese Orientation/consciousness: Other orientation findings ( oriented) HEENT Head: Yes atraumatic Eyes General: appearance normal, both eyes and all related structures Sclerae: sclerae normal EOM: EOMs intact bilaterally Neck Neck: Yes supple Lymphatic: no lymphadenopathy noted Resp Effort & Inspection: normal respiratory effort and no use of accessory muscles Auscultation: clear to auscultation bilaterally Cardio Rate: regular rate Rhythm: regular rhythm Heart sounds: no gallops, no murmurs and no rubs Skin General skin exam: other ( warm) Extrem General: No clubbing, No cyanosis and No edema Assessment & Plan Assessment & Plan (1) Asthma-COPD overlap syndrome: Code(s): J44.89 - Other specified chronic obstructive pulmonary disease Category: Medical Plan: Baseline well controlled on Xolair, Advair, Spiriva, duo nebs, and albuterol MDI. Finish prednisone course. (2) Environmental allergies: Code(s): Z91.09 - Other allergy status, other than to drugs and biological substances Category: Medical Plan: Overall well controlled on Xolair. Continue current regimen. (3) Smoker: Code(s): F17.200 - Nicotine dependence, unspecified, uncomplicated Category: Social Hx Plan: Will obtain lung cancer screening CT chest. Orders: Orders CT lung screening Today F17.200 - Nicotine dependence, unspecified, uncom plicated Coding Level of Care Code Est Pt Level 4 (43914) Complex EM visit Add On G2211 Diagnoses Asthma-COPD overlap syndrome J44.89 Environmental allergies Z91.09 Smoker F17.200
[2024-07-26 12:53] VITALS: BP 122/70; PULSE 79; O2SAT 97; BMI 32.9
== END 2024-07-26 13:12 | disposition home or self-care (01) ==
LOC: HO.HPS 12:30
PROVIDERS: PCP Nurse Practitioner Primary Care; Visit Provider Internal Medicine Pulmonary Disease
DX: J44.89 Other specified chronic obstructive pulmonary disease (principal); Z91.09 Other allergy status, other than to drugs and biological substances; F17.200 Nicotine dependence, unspecified, uncomplicated
CPT/HCPCS: 99214; G2211

== ENCOUNTER → 2024-07-26 12:30 | Outpatient (BNVA) | payer OTHER, SELFPAY | PROVIDERS: PCP Nurse Practitioner Primary Care; Visit Provider Internal Medicine Pulmonary Disease | DX: J45.50 Severe persistent asthma, uncomplicated (principal); J44.89 Other specified chronic obstructive pulmonary disease; Z91.09 Other allergy status, other than to drugs and biological substances; F17.210 Nicotine dependence, cigarettes, uncomplicated | CPT/HCPCS: 99212 ==

== ENCOUNTER 2024-07-27 13:35 | Emergency (ER) | payer OTHER, SELFPAY ==
--- NOTE | ~2024-07-27 | XR_ITS ---
EXAMINATION: XR CHEST 2 VIEWS HISTORY: CP COMPARISON: Comparison is made with the prior examination dated 04/20/2024. FINDINGS: PA and lateral views of the chest are submitted. The lungs are expanded and clear. There is no pleural effusion, pneumothorax, or pulmonary vascular congestion. The heart is normal in size. The aorta is tortuous and calcified. The bones are intact. XR/XR chest 2V IMPRESSION: No acute cardiopulmonary abnormality. Electronically signed by: Kevlin Eldridge MD 07/27/2024 02:05 PM EDT
--- NOTE | 2024-07-27 13:41 | ECG_ITS ---
Test Reason : chest pain Blood Pressure : */* mmHG Vent. Rate : 96 BPM Atrial Rate : 96 BPM P-R Int : 204 ms QRS Dur : 88 ms QT Int : 360 ms P-R-T Axes : 55 -54 40 degrees QTcB Int : 454 ms Normal sinus rhythm Left anterior fascicular block Minimal voltage criteria for LVH, may be normal variant ( Valmora product ) Abnormal ECG When compared with ECG of 29-Feb-2024 12:38, No significant change was found Referred By: Generic ED Physician Electronically Signed By: BEHZAD LOUIE MD
[2024-07-27 14:00] LABS: MANUAL DIFF FLAG NO
[2024-07-27 14:02] LABS: Basophils Absolute Auto 0.1 X10*3/uL (0.0-0.2); Basophils Percent Auto 0.7 % (0-2); Eosinophils Absolute Auto 0.3 X10*3/uL (0.0-0.4); Eosinophils Percent Auto 3.6 % (0-4); Hematocrit 43.5 % (37.0-47.0); Hemoglobin 14.6 g/dl (12.0-16.0); Imm Gran Abs Auto 0.02 X10*3/uL (0.00-0.03); Imm Gran Pct Auto 0.3 % (0.0-0.4); Lymphocytes Absolute Auto 3.3 X10*3/uL (1.2-4.9); Lymphocytes Percent Auto 45.7 % (20-40); Mean Corpuscular HGB Conc 33.6 g/dl (31.0-35.0); Mean Corpuscular Hemoglobin 31.7 pg (27.0-33.0); Mean Corpuscular Volume 94.6 fL (80.0-98.0); Mean Platelet Volume 9.4 fL (9.4-12.3); Monocytes Absolute Auto 0.4 X10*3/uL (0.1-1.2); Monocytes Percent Auto 5.5 % (2-11); Neutrophils Absolute Auto 3.2 x10*3/uL (2.0-8.3); Neutrophils Percent Auto 44.2 % (45-73); Platelet Count 301 X10*3/uL (160-400); Red Cell Distribution Width 13.7 % (11.0-16.0); White Blood Count 7.3 X10*3/uL (4.8-10.8)
[2024-07-27 14:14] LABS: Anion Gap 8 (12-20); Blood Urea Nitrogen 14 mg/dL (9-16); Calcium 9.2 mg/dL (8.4-10.2); Carbon Dioxide 26 mmol/L (22-29); Chloride 111 mmol/L (96-108); Estimated Glomerular Filt Rate > 60; Glucose Random 161 mg/dL (60-115); Potassium 3.7 mmol/L (3.3-5.1); Sodium 141 mmol/L (135-145)
[2024-07-27 14:17] VITALS: BP 128/78; PULSE 79; RESP 18; TEMP 36.6; O2SAT 96; BMI 34.2
[2024-07-27 14:22] LABS: Troponin-I High Sensitivity < 2.7 ng/L (<3.5-17.0)
--- NOTE | 2024-07-27 14:35 | ED_ITS ---
HPI - General Adult General Chief complaint: Upper Respiratory Symptoms Stated complaint: Chest pain History of Present Illness HPI narrative: left without completion of treatment by ED provider. Related Data Home Medications ?Medication ?Instructions ?Recorded ?Confirmed potassium chloride 20 mEq 20 meq PO BID 11/20/19 06/08/24 tablet,extended release(part/cryst) zolpidem 10 mg tablet 10 mg PO BEDTIME PRN Insomnia 11/20/19 06/08/24 clonazepam 1 mg tablet (Klonopin) 1 mg PO DAILY 03/08/20 06/08/24 montelukast 10 mg tablet 10 mg PO BEDTIME 03/08/20 06/08/24 multivitamin-ferrous 1 tab PO DAILY 07/06/21 06/08/24 fumarate-folic acid 18 mg-400 mcg tablet (Certavite-Antioxidant) tramadol 50 mg tablet 50 mg PO Q12H PRN Pain 01/31/22 06/08/24 acetaminophen 325 mg tablet 650 mg PO Q6H PRN pain 06/11/22 06/08/24 amlodipine 10 mg tablet 10 mg PO BEDTIME 07/09/23 06/08/24 cetirizine 10 mg tablet 10 mg PO QPM 07/09/23 06/08/24 enalapril maleate 20 mg tablet 20 mg PO DAILY 07/09/23 06/08/24 insulin lispro 100 unit/mL 4 unit subcut TID PRN Hyperglycemia 12/18/23 06/08/24 subcutaneous pen (Humalog KwikPen (U-100) Insulin) meclizine 25 mg tablet 25 mg PO TID PRN Dizziness 12/18/23 06/08/24 clonazepam 1 mg tablet 0.5 mg PO BEDTIME PRN Sleep 03/21/24 06/08/24 fluticasone propionate 50 2 spray intranasal QAM 03/21/24 06/08/24 mcg/actuation nasal spray,suspension ipratropium 0.5 mg-albuterol 3 mg 3 ml inhalation Q6H PRN Shortness 03/21/24 06/08/24 (2.5 mg base)/3 mL nebulization Of Breath Or Wheezing soln lidocaine 5 % topical patch 1 patch topical DAILY PRN Pain 03/21/24 06/08/24 risperidone 0.5 mg tablet 0.5 mg PO BID 03/21/24 06/08/24 buspirone 10 mg tablet 10 mg PO TID 06/15/24 flash glucose scanning reader #1 ea 06/15/24 (FreeStyle Jalil 2 [place]) fluticasone 250 mcg-salmeterol 50 1 ea inhalation BID 06/15/24 mcg/dose blistr powdr for inhalation Previous Rx's ?Medication ?Instructions ?Recorded leg brace (Knee Support Brace) #2 ea 03/08/20 blood-glucose meter (FreeStyle #1 ea 02/28/22 Flash System kit) pen needle, diabetic 32 gauge x ##100 10/01/22 (UltiCare Pen Needle) gabapentin 400 mg capsule 400 mg PO BEDTIME #30 caps 01/01/23 levothyroxine 75 mcg tablet 75 mcg PO QAM #90 tabs 04/14/23 omalizumab 150 mg subcutaneous 300 mg subcut Q2W 28 days #4 ea 05/19/23 solution Lactobacil rhamnosus GG 10 billion 1 cap PO DAILY #30 caps 11/07/23 cell-inulin 200 mg sprinkle capsule (Fly Victor) tiotropium bromide 18 mcg capsule 1 cap inhalation DAILY #30 caps 02/09/24 with inhalation device (Spiriva with HandiHaler) blood sugar diagnostic (FreeStyle #100 strips 03/19/24 Lite Strips) lancets 33 gauge (TRUEplus Lancets) #100 ea 03/19/24 blood-glucose sensor (FreeStyle #2 ea 04/02/24 Jalil 3 Plus Sensor device) blood-glucose,risk management specialist,cont #1 ea 04/02/24 (FreeStyle Jalil 3 [place]) semaglutide 0.25 mg or 0.5 mg (2 0.5 mg (0.736 mL) subcut SA #3 mL 04/06/24 mg/3 mL) subcutaneous pen injector (Ozempic) Lactobacillus rhamnosus GG 10 1 cap PO DAILY #30 caps 06/15/24 billion cell capsule (ExpertBeacon) albuterol sulfate 90 mcg/actuation 2 puff inhalation Q4-6H PRN for 06/15/24 aerosol inhaler (Ventolin HFA) wheezing #18 grams hydrocortisone 2.5 % topical cream 1 appl NM BID hemorrhoids #30 grams 06/15/24 with perineal applicator (Proctosol HC) metoclopramide HCl 5 mg tablet 5 mg PO TID #90 tabs 06/15/24 omeprazole 20 mg capsule,delayed 20 mg PO BID #60 caps 06/15/24 release plecanatide 3 mg tablet (Trulance) 3 mg PO BEDTIME #30 tabs 06/15/24 sennosides 8.6 mg tablet (senna) 17.2 mg (2 x 8.6 mg) PO BEDTIME 06/15/24 for constipation #60 tabs prednisone 20 mg tablet 40 mg (2 x 20 mg) PO DAILY #10 tabs 07/05/24 docusate sodium 100 mg capsule 100 mg PO BID #60 caps 07/08/24 (Stool Softener) Allergies Allergy/AdvReac Type Severity Reaction Status Date / Time Fish Containing Products Allergy Intermediate Swelling Verified 07/27/24 14:20 vancomycin Allergy Intermediate Rash Verified 07/27/24 14:20 aspirin [Aspirin] Allergy Mild ITCHY Verified 07/27/24 14:20 THROAT azithromycin Allergy Unknown Unknown Verified 07/27/24 14:20 naproxen Allergy Unknown Unknown Verified 07/27/24 14:20 simvastatin Allergy Unknown Unknown Verified 07/27/24 14:20 onion [ONION] AdvReac Mild RED FACE Verified 07/27/24 14:20 [facility] Past Medical History Medical History Severe persistent asthma NIDDY (non-insulin dependent diabetes mellitus in young) COPD (chronic obstructive pulmonary disease) Cellulitis of labia Pulmonary hypertension, pre-operative cardiovascular examination Arthritis Thyroid disease Bilateral renal cysts Right bundle branch block Dental calculus Depression Varicose veins of left lower extremity Ectatic aorta Paresthesia Paresis of one side of face Neck pain Insomnia disorder, with non-sleep disorder mental comorbidity Increased immunoglobulin Constipation Aneurysm of left internal carotid artery Abnormal ultrasound of kidney Type 2 diabetes mellitus History of kidney stones Abnormal finding on ultrasound Tear of medial meniscus of left knee Leg pain Kidney stone on left side MOCK (dyspnea on exertion) Patellofemoral arthritis of left knee Trochanteric bursitis of right hip COVID-19 Carpal tunnel syndrome of right wrist Renal calculi UTI (urinary tract infection) Allergic rhinitis Anxiety and depression Fibromyalgia HTN (hypertension) PTSD (post-traumatic stress disorder) Preop pulmonary/respiratory exam Vertigo Diabetes Asthma Chest pain Tubular adenoma of colon Vulvovaginitis Acute asthma exacerbation Candidiasis of mouth and esophagus Bronchitis Spondylosis of cervical region without myelopathy or radiculopathy Bronchitis COPD exacerbation Yeast infection Papanicolaou smear for cervical cancer screening Bilateral hand pain Bilateral knee pain Low vitamin D level Dry mouth Environmental allergies Non-toxic multinodular goiter Hypothyroidism Type 2 diabetes mellitus with hyperglycemia DVT (deep venous thrombosis) Menopausal state Cocaine abuse Surgical History Encounter for postoperative wound check Status post umbilical hernia repair, follow-up exam Carbuncle and furuncle of buttock Carbuncle of abdominal wall Umbilical hernia Umbilical hernia Hx of carpal tunnel repair History of esophagogastroduodenoscopy (EGD) H/O colonoscopy with polypectomy History of selective injection of anesthetic agent around lumbar nerve root Hx of right breast biopsy History of hysterectomy History of lithotripsy Family History Family History Father No problems noted. 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 Patient denies any chest pain. Patient prescribed prednisone from urgent care. Patient would like to be discharged. Patient recommend to get medical evaluation. Labs EKG chest x-ray ordered Medical Decision Making Lab Data 07/27/24 13:46 07/27/24 13:46 Labs: Lab Results 07/27/24 Range/Units 13:46 WBC 7.3 (4.8-10.8) X10*3/uL RBC 4.60 (4.20-5.50) X10*6/uL Hgb 14.6 (12.0-16.0) g/dl Hct 43.5 (37.0-47.0) % MCV 94.6 (80.0-98.0) fL MCH 31.7 (27.0-33.0) pg MCHC 33.6 (31.0-35.0) g/dl RDW 13.7 (11.0-16.0) % Plt Count 301 (160-400) X10*3/uL MPV 9.4 (9.4-12.3) fL Immature Gran % (Auto) 0.3 (0.0-0.4) % Neut % (Auto) 44.2 L (45-73) % Lymph % (Auto) 45.7 H (20-40) % [place] % (Auto) 5.5 (2-11) % Eos % (Auto) 3.6 (0-4) % Baso % (Auto) 0.7 (0-2) % Lymph # (Auto) 3.3 (1.2-4.9) X10*3/uL [place] # (Auto) 0.4 (0.1-1.2) X10*3/uL Eos # (Auto) 0.3 (0.0-0.4) X10*3/uL Baso # (Auto) 0.1 (0.0-0.2) X10*3/uL Abs Immat Gran (auto) 0.02 (0.00-0.03) X10*3/uL Absolute Neuts (auto) 3.2 (2.0-8.3) x10*3/uL Absolute Nucleated RBC 0.000 (0.0-0.012) X10*3/uL Nucleated RBC % (auto) 0.0 (0.0-0.2) /100WBC Sodium 141 (135-145) mmol/L Potassium 3.7 (3.3-5.1) mmol/L Chloride 111 H (96-108) mmol/L Carbon Dioxide 26 (22-29) mmol/L Anion Gap 8 L (12-20) BUN 14 (9-16) mg/dL Creatinine 0.94 (0.5-1.4) mg/dL Estim Creat Clear Calc TNP Estimated GFR > 60 Random Glucose 161 H (60-115) mg/dL Calcium 9.2 (8.4-10.2) mg/dL Troponin I High Sens < 2.7 (<3.5-17.0) ng/L Discharge Plan Discharge Clinical Impression: Chest pain Patient Disposition: Left W/O Completing Treatment Prescriptions: No Action (DME) blood-glucose meter [FreeStyle Flash System] Kit See Rx Instructions .Route Qty: 1 0RF Rx Instructions: As directed (DME) pen needle, diabetic [UltiCare Pen Needle] 32 gauge x 5/32 needle See Rx Instructions .ROUTE .COMPLEX Qty: 100 5RF Dose Instruction: USE FOUR TIMES DAILY Rx Instructions: USE FOUR TIMES DAILY gabapentin 400 mg capsule 400 mg PO BEDTIME Qty: 30 4RF levothyroxine 75 mcg tablet 75 mcg PO QAM Qty: 90 4RF omalizumab 150 mg recon soln 300 mg subcut Q2W 28 Days Qty: 4 11RF Rx Instructions: requires multiple injection sites; do not exceed 150 mg per injection site [facility] [employer] [facility] 10 billion cell -200 mg capsule, sprinkle 1 cap PO DAILY Qty: 30 6RF Spiriva with HandiHaler 18 mcg capsule, w/inhalation device 1 cap inhalation DAILY Qty: 30 6RF (DME) FreeStyle Lite Strips Strip See Rx Instructions .ROUTE .COMPLEX Qty: 100 5RF Dose Instruction: TEST BLOOD SUGAR FOUR TIMES DAILY Rx Instructions: TEST BLOOD SUGAR FOUR TIMES DAILY (DME) lancets [TRUEplus Lancets] 33 gauge misc See Rx Instructions .ROUTE .COMPLEX Qty: 100 5RF Dose Instruction: TEST BLOOD SUGAR FOUR TIMES DAILY Rx Instructions: TEST BLOOD SUGAR FOUR TIMES DAILY (DME) FreeStyle Jalil 3 [place] Misc See Rx Instructions .MEDSUPPLY Qty: 1 0RF Rx Instructions: Use daily As directed to monitor blood glucose (DME) FreeStyle Jalil 3 Plus Sensor Device See Rx Instructions .MEDSUPPLY Qty: 2 5RF Rx Instructions: Use daily As directed to monitor glucose Ozempic 0.25 mg or 0.5 mg (2 mg/3 mL) pen injector 0.5 mg subcut SA Qty: 3 4RF Patient Comments: patient takes every Friday albuterol sulfate [Ventolin HFA] 90 mcg/actuation HFA aerosol inhaler 2 puff inhalation Q4-6H PRN (Reason: for wheezing) Qty: 18 6RF prednisone 20 mg tablet 40 mg PO DAILY Qty: 10 0RF docusate sodium [Stool Softener] 100 mg capsule 100 mg PO BID Qty: 60 6RF Certavite-Antioxidant 18-400 mg-mcg Tablet 1 tab PO DAILY cetirizine 10 mg tablet 10 mg PO QPM enalapril maleate 20 mg tablet 20 mg PO DAILY amlodipine 10 mg tablet 10 mg PO BEDTIME ipratropium-albuterol 0.5 mg-3 mg(2.5 mg base)/3 mL solution for nebulization 3 ml inhalation Q6H PRN (Reason: Shortness Of Breath Or Wheezing) clonazepam 1 mg tablet 0.5 mg PO BEDTIME PRN (Reason: Sleep) fluticasone propionate 50 mcg/actuation spray,suspension 2 spray intranasal QAM risperidone 0.5 mg tablet 0.5 mg PO BID lidocaine 5 % adhesive patch,medicated 1 patch topical DAILY PRN (Reason: Pain) Rx Instructions: leave on most painful area for up to 12 hrs montelukast 10 mg tablet 10 mg PO BEDTIME clonazepam [Klonopin] 1 mg tablet 1 mg PO DAILY Rx Instructions: administer 30 minutes before bedtime (DME) Knee Support Brace Misc See Rx Instructions .ROUTE .MEDSUPPLY Qty: 2 0RF Rx Instructions: As directed zolpidem 10 mg tablet 10 mg PO BEDTIME PRN (Reason: Insomnia) potassium chloride 20 mEq tablet,ER particles/crystals 20 meq PO BID acetaminophen 325 mg tablet 650 mg PO Q6H PRN (Reason: pain) tramadol 50 mg tablet 50 mg PO Q12H PRN (Reason: Pain) insulin lispro [Humalog KwikPen Insulin] 100 unit/mL insulin pen 4 unit subcut TID PRN (Reason: Hyperglycemia) Rx Instructions: use as directed with meals meclizine 25 mg tablet 25 mg PO TID PRN (Reason: Dizziness) buspirone 10 mg tablet 10 mg PO TID (DME) FreeStyle Jalil 2 [place] Misc See Rx Instructions .ROUTE .MEDSUPPLY Qty: 1 Rx Instructions: As directed fluticasone propion-salmeterol 250-50 mcg/dose blister with device 1 ea inhalation BID Trulance 3 mg tablet 3 mg PO BEDTIME Qty: 30 12RF omeprazole 20 mg capsule,delayed release(DR/EC) 20 mg PO BID Qty: 60 6RF metoclopramide HCl 5 mg tablet 5 mg PO TID Qty: 90 6RF sennosides [senna] 8.6 mg tablet 17.2 mg PO BEDTIME Qty: 60 6RF hydrocortisone [Proctosol HC] 2.5 % cream with perineal applicator 1 appl NM BID Qty: 30 6RF Rx Instructions: BE SURE TO INCLUDE RECTAL APPICATOR!! [employer] 10 billion cell capsule 1 cap PO DAILY Qty: 30 12RF Discharge Date/Time: 07/27/24 19:16
--- NOTE | 2024-07-27 19:07 | PC.NURSE ---
NO ANSWER WHEN CALLED FROM AT 1900
== END 2024-07-27 19:16 | disposition left against medical advice (07) ==
LOC: HO.ED 19:16
PROVIDERS: Emergency Provider Emergency Medicine; PCP Nurse Practitioner Primary Care
DX: R07.89 Other chest pain (principal); E11.9 Type 2 diabetes mellitus without complications; J44.9 Chronic obstructive pulmonary disease, unspecified; Z79.4 Long term (current) use of insulin; Z79.899 Other long term (current) drug therapy
CPT/HCPCS: 36415; 71046; 80048; 84484; 85025; 93005; 99283

== ENCOUNTER → 2024-07-27 13:41 | Outpatient (BNV) | payer OTHER, SELFPAY | PROVIDERS: PCP Nurse Practitioner Primary Care; Visit Provider Radiology Diagnostic Radiology | DX: R07.9 Chest pain, unspecified (principal) | CPT/HCPCS: 71046 ==

== ENCOUNTER → 2024-07-27 13:41 | Outpatient (BNV) | payer OTHER, SELFPAY | PROVIDERS: Emergency Provider Emergency Medicine; PCP Nurse Practitioner Primary Care; Visit Provider Internal Medicine Cardiovascular Disease | DX: I44.7 Left bundle-branch block, unspecified (principal) | CPT/HCPCS: 93010 ==

== ENCOUNTER 2024-07-29 07:40 | Outpatient (REF) | payer OTHER, SELFPAY ==
--- NOTE | ~2024-07-29 | US_ITS ---
CLINICAL HISTORY: N20.0 - Calculus of kidney Renal ultrasound Comparison: US - US RENAL BI - 05/26/24 13:[address]/SR - CT ABDOMEN PELVIS W IV CON - 03/20/24 18:22 EST Findings: The kidneys are normal in echotexture bilaterally. Lobular contour of the kidneys; normal variant versus scarring. No hydronephrosis. No identified nephrolithiasis. The right kidney is normal in size, measuring 11.1cm in length. The left kidney is normal in size, measuring 11.1cm in length. Simple cyst in the upper pole measuring 3.8 x 3.8 x 3.7 cm. Impression: No acute findings. This document has been electronically signed by: Ligia Argueta MD on 07/29/2024 12:57:46
--- OUTSIDE RECORDS SUMMARY | 2024-07-29 07:43 | XMS_ITS | Encounter Summary ---
Author Organization [employer] Address [address] [facility] [address] [place] [address] Care Team Providers Care Microfilm Technician Name Role Phone Sariah Vickers Primary Care Provider [phone] Yuri Pierre PharmD Unavailable [phone] Basilio aHll MD Unavailable [phone] Ron Preciado MD Unavailable [phone] Reason for Visit * Reason Comments Med Refill Encounter Details Date Type Department Care Team (Late st Contact Info) Description 09/13/2022 Refill [facility] MED & PEDS [address] [place] [address] Sariah Vickers ANP [address] [place] [address] Severe persistent allergic asthma without complication Social [...] 08/04/2024 10:00 AM EDT Medication Management [facility] MEDICINE [address] [place] [phone] Yuri Pierre, PharmD [address] [place] [phone] 08/04/2024 1:00 PM EDT Office Visit [facility] ADULT DENTAL [address] [place] [phone] Nuvia Duarte [address] [place] [address] 09/27/2024 2:00 PM EDT Office Visit [facility] OPTOMETRY [address] [place] [phone] Luisa Martinez, OD [address] [place] [phone] 10/01/2024 11:00 AM EDT Clinical Support [facility] MEDICINE [address] [place] [phone] Azeb Hall, MARTIN [address] [place] [address] 10/14/2024 1:30 PM EDT Office Visit [facility] MEDICINE [address] [place] [phone] Sariah Vickers ANP [address] [place] [phone] documented as of this encounter Visit Diagnoses Diagnosis Severe persistent allergic asthma without complication documented in this encounter Care Teams Microfilm Technician Relationship Specialty Start Date End Date Sariah Vickers ANP [address] [place] [phone] PCP - General Family Medicine 09/23/19 Yuri Pierre, PharmD [address] [place] [phone] Pharmacist Internal Medicine 05/05/24 Basilio Hall MD [address] [place] [address] Cardiology 05/17/24 Ron Preciado MD [address] [place] [phone] Pulmonary Disease 05/17/24 documented as of this encounter
== END 2024-07-29 07:41 | disposition home or self-care (01) ==
LOC: HO.US 07:40
PROVIDERS: PCP Nurse Practitioner Primary Care; Visit Provider Nurse Practitioner
DX: R10.9 Unspecified abdominal pain (principal); N20.0 Calculus of kidney; R74.01 Elevation of levels of liver transaminase levels
CPT/HCPCS: 76775

== ENCOUNTER → 2024-07-29 07:42 | Outpatient (BNV) | payer OTHER, SELFPAY | PROVIDERS: PCP Nurse Practitioner Primary Care; Visit Provider Radiology Diagnostic Radiology | DX: N20.0 Calculus of kidney (principal) | CPT/HCPCS: 76775 ==

== ENCOUNTER 2024-09-07 11:50 | Emergency (ER) | payer OTHER, SELFPAY ==
[2024-09-07 11:59] VITALS: BP 139/93; PULSE 81; RESP 18; TEMP 36.8; O2SAT 97; BMI 34.6
--- NOTE | 2024-09-07 12:08 | ED_ITS ---
HPI - General Adult General Chief complaint: General Medical Stated complaint: right leg pain Time Seen by Provider: 09/07/24 13:01 Source: patient Limitations: language barrier (Wallisian speaking only, [facility] environmental aide used) History of Present Illness ED Provider: Dr. Tomy Glover HPI narrative: 63-year-old female with a history of diabetes mellitus, hypertension, asthma, COPD, depression, PTSD, hypothyroidism, GERD, fibromyalgia who presents emergency department for evaluation of diffuse body aches, chills, weakness, bilateral leg pain x4 days. Patient has been taking Tylenol and tramadol with no relief. Patient states she has had her symptoms for proximally 4 days. Patient did not take any pain medications today. She states that she feels hot and cold but did not think that she had a temperature. She denied shortness of breath or dyspnea on exertion. She denied nausea, vomiting, diarrhea, frequency or dysuria. The patient states she is on Ozempic and has lost weight. She has been on this medication for 6 months and she is concerned that her pain may be related to this medication. Related Data Home Medications ?Medication ?Instructions ?Recorded ?Confirmed potassium chloride 20 mEq 20 meq PO BID 11/20/1906/08 tablet,extended release(part/cryst) zolpidem 10 mg tablet 10 mg PO BEDTIME PRN Insomni a 11/20/19 06/08/24 clonazepam 1 mg tablet (Klonopin) 1 mg PO DAILY 06/08/24 montelukast 10 mg tablet 10 mg PO BEDTIME 03/08/20 multivitamin-ferrous 1 tab PO DAILY 07/06/2105/19 fumarate-folic acid 18 mg-400 mcg tablet (Certavite-Antioxidant) tramadol 50 mg tablet 50 mg PO Q12H PRN Pain 01/3106/08/24 acetaminophen 325 mg tablet 650 mg PO Q6H PRN pain 06/08/24 amlodipine 10 mg tablet 10 mg PO BEDTIME 07/09/23 cetirizine 10 mg tablet 10 mg PO QPM 07/09/23 enalapril maleate 20 mg tablet 20 mg PO DAILY 07/09/23 06/08/24 insulin lispro 100 unit/mL 4 unit subcut TID PRN Hyper glycemia 12/18/23 06/08/24 subcutaneous pen (Humalog KwikPen (U-100) Insulin) meclizine 25 mg tablet 25 mg PO TID PRN Dizziness 1 06/08/24 clonazepam 1 mg tablet 0.5 mg PO BEDTIME PRN Sleep 03/21/24 06/08/24 fluticasone propionate 50 2 spray intranasal QAM 03/2106/08/24 mcg/actuation nasal spray,suspension ipratropium 0.5 mg-albuterol 3 mg 3 ml inhalation Q6H PRN Shortness 03/21/24 06/08/24 (2.5 mg base)/3 mL nebulization Of Breath Or Wheezing soln lidocaine 5 % topical patch 1 patch topical DAILY PRN Pain 03/21/24 06/08/24 risperidone 0.5 mg tablet 0.5 mg PO BID 03/21/2406/08 buspirone 10 mg tablet 10 mg PO TID 06/15/24 flash glucose scanning reader #1 ea 06/15/24 (FreeStyle Jalil 2 [place]) fluticasone 250 mcg-salmeterol 50 1 ea inhalation BID 06/15/24 mcg/dose blistr powdr for inhalation Previous Rx's ?Medication ?Instructions ?Recorded leg brace (Knee Support Brace) #2 ea 03/08/20 blood-glucose meter (FreeStyle #1 ea 02/28/22 Flash System kit) pen needle, diabetic 32 gauge x ##100 10/01/22 (UltiCare Pen Needle) gabapentin 400 mg capsule 400 mg PO BEDTIME #30 caps 1 03/03/22 levothyroxine 75 mcg tablet 75 mcg PO QAM #90 tabs omalizumab 150 mg subcutaneous 300 mg subcut Q2W 28 da ys #4 ea 05/19/23 solution Lactobacil rhamnosus GG 10 billion 1 cap PO DAILY #30 caps 11/07/23 cell-inulin 200 mg sprinkle capsule ([facility] [employer] [facility]) blood sugar diagnostic (FreeStyle #100 strips 03/19/24 Lite Strips) lancets 33 gauge (TRUEplus Lancets) #100 ea 03/19/24 blood-glucose sensor (FreeStyle #2 ea 04/02/24 Jalil 3 Plus Sensor device) blood-glucose,rubber flap tuber machine operator,cont #1 ea 04/02/24 (FreeStyle Jalil 3 [place]) semaglutide 0.25 mg or 0.5 mg (2 0.5 mg (0.736 mL) sub cut SA #3 mL 04/06/24 mg/3 mL) subcutaneous pen injector (Ozempic) Lactobacillus rhamnosus GG 10 1 cap PO DAILY #30 caps 06/15/24 billion cell capsule (Culturelle) albuterol sulfate 90 mcg/actuation 2 puff inhalation Q 4-6H PRN for 06/15/24 aerosol inhaler (Ventolin HFA) wheezing #18 grams hydrocortisone 2.5 % topical cream 1 appl MO BID hemor rhoids #30 grams 06/15/24 with perineal applicator (Proctosol HC) metoclopramide HCl 5 mg tablet 5 mg PO TID #90 tabs omeprazole 20 mg capsule,delayed 20 mg PO BID #60 caps 06/15/24 release plecanatide 3 mg tablet (Trulance) 3 mg PO BEDTIME #30 tabs 06/15/24 sennosides 8.6 mg tablet (senna) 17.2 mg (2 x 8.6 mg) PO BEDTIME 06/15/24 for constipation #60 tabs docusate sodium 100 mg capsule 100 mg PO BID #60 caps 07/08/24 (Stool Softener) ipratropium 20 mcg-albuterol 100 1 puff inhalation Q6H #4 grams 07/29/24 mcg/actuation mist for inhalation (Combivent Respimat) levofloxacin 750 mg tablet 750 mg PO DAILY #7 tabs prednisone 20 mg tablet 40 mg (2 x 20 mg) PO DAILY # 10 tabs 08/03/24 peg 3350-electrolytes 236 240 ml PO Q10M 1 day #4,000 mL 08/12/24 gram-22.74 gram-6.74 gram-5.86 gram solution (Golytely) tiotropium bromide 18 mcg capsule 1 cap inhalation KRISSY LY #30 caps 08/26/24 with inhalation device (Spiriva with HandiHaler) Allergies Allergy/AdvReac Type Severity Reaction Status Date / Time Fish Containing Products Allergy Intermediate Swelling Verified 09/07/24 12:04 vancomycin Allergy Intermediate Rash Verified 09/07/24 12:04 aspirin (Aspirin) Allergy Mild ITCHY Verified 09/07/24 12:04 THROAT azithromycin Allergy Unknown Unknown Verified 09/07/24 12:04 naproxen Allergy Unknown Unknown Verified 09/07/24 12:04 simvastatin Allergy Unknown Unknown Verified 09/07/24 12:04 onion (ONION) AdvReac Mild RED FACE Verified 09/07/24 12:04 Review of Systems 2 Review of Systems: Yes all other systems are reviewed and are negative [facility] Past Medical History Medical History Severe persistent asthma NIDDY (non-insulin dependent diabetes mellitus in young) COPD (chronic obstructive pulmonary disease) Cellulitis of labia Pulmonary hypertension, pre-operative cardiovascular examination Arthritis Thyroid disease Bilateral renal cysts Right bundle branch block Dental calculus Depression Varicose veins of left lower extremity Ectatic aorta Paresthesia Paresis of one side of face Neck pain Insomnia disorder, with non-sleep disorder mental comorbidity Increased immunoglobulin Constipation Aneurysm of left internal carotid artery Abnormal ultrasound of kidney Type 2 diabetes mellitus History of kidney stones Abnormal finding on ultrasound Tear of medial meniscus of left knee Leg pain Kidney stone on left side MOCK (dyspnea on exertion) Patellofemoral arthritis of left knee Trochanteric bursitis of right hip COVID-19 Carpal tunnel syndrome of right wrist Renal calculi UTI (urinary tract infection) Allergic rhinitis Anxiety and depression Fibromyalgia HTN (hypertension) PTSD (post-traumatic stress disorder) Preop pulmonary/respiratory exam Vertigo Diabetes Asthma Chest pain Tubular adenoma of colon Vulvovaginitis Acute asthma exacerbation Candidiasis of mouth and esophagus Bronchitis Spondylosis of cervical region without myelopathy or radiculopathy Bronchitis COPD exacerbation Yeast infection Papanicolaou smear for cervical cancer screening Bilateral hand pain Bilateral knee pain Low vitamin D level Dry mouth Environmental allergies Non-toxic multinodular goiter Hypothyroidism Type 2 diabetes mellitus with hyperglycemia DVT (deep venous thrombosis) Menopausal state Cocaine abuse Surgical History Encounter for postoperative wound check Status post umbilical hernia repair, follow-up exam Carbuncle and furuncle of buttock Carbuncle of abdominal wall Umbilical hernia Umbilical hernia Hx of carpal tunnel repair History of esophagogastroduodenoscopy (EGD) H/O colonoscopy with polypectomy History of selective injection of anesthetic agent around lumbar nerve root Hx of right breast biopsy History of hysterectomy History of lithotripsy Family History Family History Father No problems noted. Mother Myocardial infarction CVA (cerebral vascular accident) Social History Social History Household Members: Children Housing: Apartment Are you a primary healthcare representative to a significant other at home: No Do you presently have visiting nurse or other home services: Yes ([employer]) Alcohol intake: never Comment: COUNTS CORRECT Patient Tobacco Use Status: Never used Tobacco Advance Directives: Yes Advance Directives Information Provided: Yes Advance Directives on File: No Do you have a plan to hurt others: No Plan Patient : No service: No Current occupational status: disabled 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 Physical Exam ED Vital Signs: Vital Signs - 24 hr 09/07/24 11:59 09/07/24 13:34 09/07/24 13:51 Temperature 98.2 F 97.6 F 97.6 F Pulse Rate 81 74 74 Respiratory Rate 18 18 18 Blood Pressure 139/93 H 141/81 H 141/81 H Pulse Oximetry 97 96 96 Oxygen Delivery Method Room Air Room Air Room Air BMI result Body Mass Index 34.6 Vital signs revealed an elevated blood pressure of 139/93 otherwise unremarkable Exam: General: Awake, alert in no distress Head: Normocephalic, atraumatic EENT: PERRL, Lids normal, sclera normal, conjunctiva normal, nose normal , ears normal, throat without erythema or exudates Neck: Supple, no adenopathy Lung: breath sounds symmetric, no wheezing, rales or rhonchi Chest: symmetric movement, nontender Heart: regular rate and rhythm, normal S1, S2 no murmurs or rubs Abdomen: soft, non-tender, nondistended, normal bowel sounds Back: no vertebral tenderness, no CVAT Extremities: no deformities, moves all extremities symmetrically Neuro: Awake, alert, oriented, normal speech, cranial nerves intact, moves all extremities symmetrically Psych: Pleasant, cooperative Course Course Course Narrative: RME: 60 story female presents to ED for multiple complaints. Patient patient states generalized body pain including legs, weakness, chills, and liver pain. Labs ordered Medical Decision Making Medical Decision Making MDM Narrative: 63-year-old female with a history of diabetes mellitus, hypertension, asthma, COPD, depression, PTSD, hypothyroidism, GERD, fibromyalgia who presents emergency department for evaluation of diffuse body aches, chills, weakness, bilateral leg pain x4 days. Patient has been taking Tylenol and tramadol with no relief. Patient states she has had her symptoms for proximally 4 days. Patient did not take any pain medications today. She states that she feels hot and cold but did not think that she had a temperature. She denied shortness of breath or dyspnea on exertion. She denied nausea, vomiting, diarrhea, frequency or dysuria. The patient states she is on Ozempic and has lost weight. She has been on this medication for 6 months and she is concerned that her pain may be related to this medication. Vital signs revealed an elevated blood pressure otherwise unremarkable. Physical examination was unremarkable. Differential diagnosis: ?Includes but is not limited to rhabdomyolysis, musculoskeletal pain, viral syndrome, influenza, RSV, COVID, anemia, electrolyte abnormalities Course: 13:30 My interpretation patient's laboratory evaluation is as follows: CBC was normal. CMP was normal. CK was not elevated. COVID-19, influenza and RSV tests were negative. At this time I do not have a clear cause for the patient's symptoms, it is possible she may have musculoskeletal pain, flare-up of her fibromyalgia or an early viral syndrome. I do not think that her symptoms are related to Ozempic and I did discuss this with her. The patient does not want any pain medications at this time. Patient states she will go home and take her Tylenol and her tramadol as needed for her pain. She was given printed and verbal instructions and discharged home. Admission/Observation Consideration of admission/observation: Escalation of care including admission/observation considered (Yes) Lab Data [facility] Lab Attestation statement: I reviewed the patient's lab results. 09/07/24 12:16 09/07/24 12:16 Labs: Lab Results 09/07/24 Range/Units 12:16 WBC 6.0 (4.8-10.8) X10*3/uL RBC 4.48 (4.20-5.50) X10*6/uL Hgb 14.3 (12.0-16.0) g/dl Hct 41.6 (37.0-47.0) % MCV 92.9 (80.0-98.0) fL MCH 31.9 (27.0-33.0) pg MCHC 34.4 (31.0-35.0) g/dl RDW 13.2 (11.0-16.0) % Plt Count 254 (160-400) X10*3/uL MPV 9.4 (9.4-12.3) fL Immature Gran % (Auto) 0.2 (0.0-0.4) % Neut % (Auto) 35.8 L (45-73) % Lymph % (Auto) 52.0 H (20-40) % [place] % (Auto) 7.0 (2-11) % Eos % (Auto) 4.5 H (0-4) % Baso % (Auto) 0.5 (0-2) % Lymph # (Auto) 3.1 (1.2-4.9) X10*3/uL [place] # (Auto) 0.4 (0.1-1.2) X10*3/uL Eos # (Auto) 0.3 (0.0-0.4) X10*3/uL Baso # (Auto) 0.0 (0.0-0.2) X10*3/uL Abs Immat Gran (auto) 0.01 (0.00-0.03) X10*3/uL Absolute Neuts (auto) 2.1 (2.0-8.3) x10*3/uL Absolute Nucleated RBC 0.000 (0.0-0.012) X10*3/uL Nucleated RBC % (auto) 0.0 (0.0-0.2) /100WBC Sodium 144 (135-145) mmol/L Potassium 3.6 (3.3-5.1) mmol/L Chloride 110 H (96-108) mmol/L Carbon Dioxide 27 (22-29) mmol/L Anion Gap 11 L (12-20) BUN 14 (9-16) mg/dL Creatinine 0.79 (0.5-1.4) mg/dL Estim Creat Clear Calc 78.8 Estimated GFR > 60 Random Glucose 99 (60-115) mg/dL Calcium 9.2 (8.4-10.2) mg/dL Total Bilirubin 0.3 (0.0-1.0) mg/dL AST 31 (5-31) U/L ALT 20 (0-31) U/L Alkaline Phosphatase 94 (39-117) U/L Total Creatine Kinase 145 H (26-140) U/L Total Protein 7.6 (6.5-8.0) g/dL Albumin 4.1 (3.5-5.0) g/dL Lipase 25 (8-78) U/L Influenza Type A (PCR) NEGATIVE (Negative) Influenza Type B (PCR) NEGATIVE (Negative) RSV RNA Qual (PCR) NEGATIVE (Negative) SARS-CoV-2 RNA (RT-PCR) NEGATIVE (Negative) Chronic Conditions Patient?s care impacted by: Diabetes, Hypertension and Other (Fibromyalgia) Discharge Plan Discharge Clinical Impression: Bilateral leg pain, Palpitations, Chills (without fever) Patient Disposition: Home, Self-Care Additional Instructions: Your blood work was normal. Your COVID-19, influenza and RSV tests were normal. At this time I do not have a clear cause for your pain. Continue taking your tramadol and Tylenol as prescribed by your providers. Follow-up with your doctor in 2 days. Please return to the emergency department if your symptoms get worse or if you develop any symptoms that are concerning to you. Prescriptions: No Action (DME) blood-glucose meter [FreeStyle Flash System] Kit See Rx Instructions .Route Qty: 1 0RF Rx Instructions: As directed (DME) pen needle, diabetic [UltiCare Pen Needle] 32 gauge x 5/32 needle See Rx Instructions .ROUTE .COMPLEX Qty: 100 5RF Dose Instruction: USE FOUR TIMES DAILY Rx Instructions: USE FOUR TIMES DAILY gabapentin 400 mg capsule 400 mg PO BEDTIME Qty: 30 4RF levothyroxine 75 mcg tablet 75 mcg PO QAM Qty: 90 4RF omalizumab 150 mg recon soln 300 mg subcut Q2W 28 Days Qty: 4 11RF Rx Instructions: requires multiple injection sites; do not exceed 150 mg per injection site [facility] [employer] [facility] 10 billion cell -200 mg capsule, sprinkle 1 cap PO DAILY Qty: 30 6RF (DME) FreeStyle Lite Strips Strip See Rx Instructions .ROUTE .COMPLEX Qty: 100 5RF Dose Instruction: TEST BLOOD SUGAR FOUR TIMES DAILY Rx Instructions: TEST BLOOD SUGAR FOUR TIMES DAILY (DME) lancets [TRUEplus Lancets] 33 gauge misc See Rx Instructions .ROUTE .COMPLEX Qty: 100 5RF Dose Instruction: TEST BLOOD SUGAR FOUR TIMES DAILY Rx Instructions: TEST BLOOD SUGAR FOUR TIMES DAILY (DME) FreeStyle Jalil 3 [place] Misc See Rx Instructions .MEDSUPPLY Qty: 1 0RF Rx Instructions: Use daily As directed to monitor blood glucose (DME) FreeStyle Jalil 3 Plus Sensor Device See Rx Instructions .MEDSUPPLY Qty: 2 5RF Rx Instructions: Use daily As directed to monitor glucose Ozempic 0.25 mg or 0.5 mg (2 mg/3 mL) pen injector 0.5 mg subcut SA Qty: 3 4RF Patient Comments: patient takes every Friday albuterol sulfate [Ventolin HFA] 90 mcg/actuation HFA aerosol inhaler 2 puff inhalation Q4-6H PRN (Reason: for wheezing) Qty: 18 6RF docusate sodium [Stool Softener] 100 mg capsule 100 mg PO BID Qty: 60 6RF Combivent Respimat 20-100 mcg/actuation mist 1 puff inhalation Q6H Qty: 4 6RF prednisone 20 mg tablet 40 mg PO DAILY Qty: 10 0RF levofloxacin 750 mg tablet 750 mg PO DAILY Qty: 7 0RF peg 3350-electrolytes [Golytely] 236-22.74-6.74 -5.86 gram recon soln 240 ml PO Q10M 1 Days Qty: 4000 0RF Rx Instructions: until fecal effluent is clear; do not exceed a total volume of 2,000 mL tiotropium bromide [Spiriva with HandiHaler] 18 mcg capsule, w/inhalation device 1 cap inhalation DAILY Qty: 30 6RF Certavite-Antioxidant 18-400 mg-mcg Tablet 1 tab PO DAILY cetirizine 10 mg tablet 10 mg PO QPM enalapril maleate 20 mg tablet 20 mg PO DAILY amlodipine 10 mg tablet 10 mg PO BEDTIME ipratropium-albuterol 0.5 mg-3 mg(2.5 mg base)/3 mL solution for nebulization 3 ml inhalation Q6H PRN (Reason: Shortness Of Breath Or Wheezing) clonazepam 1 mg tablet 0.5 mg PO BEDTIME PRN (Reason: Sleep) fluticasone propionate 50 mcg/actuation spray,suspension 2 spray intranasal QAM risperidone 0.5 mg tablet 0.5 mg PO BID lidocaine 5 % adhesive patch,medicated 1 patch topical DAILY PRN (Reason: Pain) Rx Instructions: leave on most painful area for up to 12 hrs montelukast 10 mg tablet 10 mg PO BEDTIME clonazepam [Klonopin] 1 mg tablet 1 mg PO DAILY Rx Instructions: administer 30 minutes before bedtime (DME) Knee Support Brace Misc See Rx Instructions .ROUTE .MEDSUPPLY Qty: 2 0RF Rx Instructions: As directed zolpidem 10 mg tablet 10 mg PO BEDTIME PRN (Reason: Insomnia) potassium chloride 20 mEq tablet,ER particles/crystals 20 meq PO BID acetaminophen 325 mg tablet 650 mg PO Q6H PRN (Reason: pain) tramadol 50 mg tablet 50 mg PO Q12H PRN (Reason: Pain) insulin lispro [Humalog KwikPen Insulin] 100 unit/mL insulin pen 4 unit subcut TID PRN (Reason: Hyperglycemia) Rx Instructions: use as directed with meals meclizine 25 mg tablet 25 mg PO TID PRN (Reason: Dizziness) buspirone 10 mg tablet 10 mg PO TID (DME) FreeStyle Jalil 2 [place] [facility] See Rx Instructions .ROUTE .MEDSUPPLY Qty: 1 Rx Instructions: As directed fluticasone propion-salmeterol 250-50 mcg/dose blister with device 1 ea inhalation BID Trulance 3 mg tablet 3 mg PO BEDTIME Qty: 30 12RF omeprazole 20 mg capsule,delayed release(DR/EC) 20 mg PO BID Qty: 60 6RF metoclopramide HCl 5 mg tablet 5 mg PO TID Qty: 90 6RF sennosides [senna] 8.6 mg tablet 17.2 mg PO BEDTIME Qty: 60 6RF hydrocortisone [Proctosol HC] 2.5 % cream with perineal applicator 1 appl MO BID Qty: 30 6RF Rx Instructions: BE SURE TO INCLUDE RECTAL APPICATOR!! Culturelle 10 billion cell capsule 1 cap PO DAILY Qty: 30 12RF Interventions: ED Discharge Assessment Last Done: 09/07/24 13:51 Discharge Date/Time: 09/07/24 13:52 Print Language: Wallisian
[2024-09-07 12:27] LABS: MANUAL DIFF FLAG NO
[2024-09-07 12:30] LABS: Hematocrit 41.6 % (37.0-47.0); Hemoglobin 14.3 g/dl (12.0-16.0); Imm Gran Abs Auto 0.01 X10*3/uL (0.00-0.03); Imm Gran Pct Auto 0.2 % (0.0-0.4); Lymphocytes Absolute Auto 3.1 X10*3/uL (1.2-4.9); Mean Corpuscular HGB Conc 34.4 g/dl (31.0-35.0); Mean Corpuscular Hemoglobin 31.9 pg (27.0-33.0); Mean Corpuscular Volume 92.9 fL (80.0-98.0); NRBC Abs Auto 0.000 X10*3/uL (0.0-0.012); NRBC Pct Auto 0.0 /100WBC (0.0-0.2); Platelet Count 254 X10*3/uL (160-400); Red Blood Count 4.48 X10*6/uL (4.20-5.50); White Blood Count 6.0 X10*3/uL (4.8-10.8)
[2024-09-07 12:46] LABS: Alanine Aminotransferase 20 U/L (0-31); Albumin Level 4.1 g/dL (3.5-5.0); Alkaline Phosphatase 94 U/L (39-117); Anion Gap 11 (12-20); Aspartate Amino Transferase 31 U/L (5-31); Blood Urea Nitrogen 14 mg/dL (9-16); Calcium 9.2 mg/dL (8.4-10.2); Carbon Dioxide 27 mmol/L (22-29); Chloride 110 mmol/L (96-108); Creatinine Clr Calc Pharmacy 78.8; Estimated Glomerular Filt Rate > 60; Lipase 25 U/L (8-78); Potassium 3.6 mmol/L (3.3-5.1); Sodium 144 mmol/L (135-145); Total Protein 7.6 g/dL (6.5-8.0)
[2024-09-07 13:08] LABS: Resp Syncy Virus RNA Qual PCR NEGATIVE (Negative); SARS COV2 PCR INHOUSE NEGATIVE (Negative)
[2024-09-07 13:34] VITALS: BP 141/81; PULSE 74; RESP 18; TEMP 36.4; O2SAT 96
--- OUTSIDE RECORDS SUMMARY | 2024-09-07 13:36 | XMS_ITS | Encounter Summary ---
Author Organization [employer] Address [address] [facility] [facility] [address] [place] [address] Care Team Providers Care Conservation Engineer Name Role Phone Sariah Vickers Primary Care Provider [phone] Yuri Pierre PharmD Unavailable [phone] Basilio Hall MD Unavailable [phone] Ron Preciado MD Unavailable [phone] Reason for Visit * Reason Comments Med Refill Encounter Details Date Type Department Care Team (Late st Contact Info) Description 09/13/2022 Refill [facility] [address] [place] [address] Sariah Vickers ANP [address] [place] [address] Severe persistent allergic asthma without complication Social [...] Care Team (Late st Contact Info) Description 09/27/2024 2:00 PM EDT Office Visit [facility] [address] [place] [address] Luisa Martinez, OD [address] [place] [address] 10/01/2024 11:00 AM EDT Clinical Support [facility] MEDICINE [address] [place] [address] Azeb Hall RN [address] [place] [address] 10/14/2024 1:30 PM EDT Office Visit [address] [address] Sariah Vickers ANP [address] [place] [address] 11/05/2024 2:30 PM EDT Office Visit [facility] [address] [place] [phone] Hallie Tapia MD [address] [place] [phone] documented as of this encounter Visit Diagnoses Diagnosis Severe persistent allergic asthma without complication documented in this encounter Care Teams Conservation Engineer Relationship Specialty Start Date End Date Sariah Vickers ANP [address] [place] [phone] PCP - General Family Medicine 09/23/19 Yuri Pierre, MikeD [address] [place] [phone] Pharmacist Internal Medicine 05/05/24 Basilio Hall MD [address] [place] [address] Cardiology 05/17/24 Ron Preciado MD [address] [place] [address] Pulmonary Disease 05/17/24 documented as of this encounter
--- OUTSIDE RECORDS SUMMARY | 2024-09-07 13:36 | XMS_ITS | Clinical Summary ---
Author Organization [address] [facility] Address [address] [place] [address] Phone Care Team Providers Care Engineering And Development Director Name Role Phone Sariah Vickers NP Primary Care Provider [phone] Social History Tobacco Use Types Packs/Day Years [...] 06/04/2019 04/09/2019 Colorectal Cancer Screening: Colonoscopy 01/29/2022 HIV Screening 01/29/2022 Hepatitis C Screening 01/29/2022 Social Influencers of Health Screening 01/29/2022 COVID-19 Vaccine (1 - 2023-2 5 season) 2023 Depression Screening 02/18/2024 Influenza Vaccine (#1) 2024 11/09/2018 DTaP,Tdap,and Td Vaccines (2 - Td [...] age to complete this topic Care Teams Engineering And Development Director Relationship Specialty Start Date End Date Sariah Vickers NP [address] [place] [phone] PCP - General 12/03/23
--- OUTSIDE RECORDS SUMMARY | 2024-09-07 13:37 | XMS_ITS | Data Portability ---
Author Organization [employer] [id number], [facility] Address [address] [place] [phone] Care Team Providers Care Tourism Radio Presenter Name Role Phone HIM CCA OTHER Assessment [...] Name and Address Organization Details Recorded Time 01137 aspirin medicatio n Not available Not available Not available 05/29/2024 1191 RxNorm Not Available [facility] - production 13:30:18 20833 naproxen medicatio n Not available Not available [...] Not Available Not Available No t Available [facility] 10 billion cell-200 mg sprinkle capsule TAKE 1 CAPSULE BY MOUTH EVERY DAY active Not Available Not Available No t Available BD Ultra-Fine Lorna Pen Needle 32 gauge x /32 USE DIRECTED THREE TIMES DAILY active Not [...] Available No t Available FreeStyle Jalil 2 Somis USE DIRECTED TO TEST BLOOD SUGAR EVERY [...] Heart rate Respiratory rate Body temperature Systolic And Diastolic Provider Name and Address Organization Details Last Updated DateTime 5 93 % 93 % 88 /min 16 /min 98 [degF] 126/83 mm[Hg] Not Available [facility] - production 5 16:18:21 Social History None recorded. Functional Status None recorded. Mental Status None recorded. Family History Nothing Reported. Medical History No medical history recorded. Gynecological HistoryNo gynecological history recorded. Obstetrics History GPAL:G 0 P 0 0 0 0 Past Encounters Encounter ID Performer Location Encounter Start Date Encounter Closed Date Diagnosis/Indication Diagnosis SNOMED-CT Code Diagnosis ICD10 Code Diagnosis Note [id number] Kathy Gonzalez MD Main - [address] [phone] 05/29/2024 16:18:16 05/30/2024 23:53:07 Wound finding [id number] Z51.89 Evaluation in the field was performed by my bobbin presser colleague, as noted above, I provided real-time [...] Laws Member ID Guarantor Name 05/29/2024 [facility] - [facility] ON OR AFTER 2022 - DUAL ELIGIBLE - GROUP HOME OPTIONS AND ONE CARE (MEDICARE REPLACEMENT/ADV ANTAGE - HMO) Nuvia Da Silva [id number] Nuvia Da Silva Notes Date Note Type Note Provider Name and Address Organization Details Recorded Time 05/29/2024 text/html CRC Nurse Triage Notes (Tania Kan): Reason For Request: wound care after surgery Chief Complaints: Wound Care PMH: Diabetes Mellitus Type 2, Hyperlipidemia, Hypertension, Kidney Stones, Hysterectomy, Hypothyroidism, Asthma PMH Reviewed at 05/29/2024 - 13:30 Allergies Reviewed at 05/29/2024:30 Comments: Referral taken via Safety Equipment Tester, patient calling in to place a referral. [...] .................. .................. .................. .................. .................. .................. ............... Wallpaper Scraper Note From Albert Murphy: Arrived to find patient ambulating in her apartment. Patient AOX4, GCS 15, skin pink warm and dry. Patient Czech speaking only. Telephone Maintainer line used. Patient had hernia surgery on and is wondering if the steri strips are suppose to remain or if she needs to remove them. Educated patient that they stay and will fall off on their own. VS as noted. [facility] [place] and was able to interact with patient. answered all questions for pt. Patient reassured. Red flags went over with pt. Patient denies any cp, sob, fevers. Incision looks clean and intact. .................. .................. .................. .................. .................. .................. .................. ............... [facility] Consulted: Kathy Gonzalez .................. .................. .................. .................. .................. .................. .................. ............... Disposition: Fulfilled Kathy Gonzalez MD [address] [facility], [place], [address], [employer] STACK 05/29/2024 16:25:31 OBGyn Episode No OBEpisode recorded.
[2024-09-07 13:51] VITALS: BP 141/81; PULSE 74; RESP 18; TEMP 36.4; O2SAT 96
== END 2024-09-07 13:52 | disposition home or self-care (01) ==
PROVIDERS: Physician Assistant; Emergency Provider Emergency Medicine Emergency Medical Services; PCP Nurse Practitioner Primary Care
DX: M79.604 Pain in right leg (principal); M79.605 Pain in left leg; R00.2 Palpitations; R68.83 Chills (without fever); Z03.818 Encounter for observation for suspected exposure to other biological agents ruled out; E11.9 Type 2 diabetes mellitus without complications; I10 Essential (primary) hypertension; E78.00 Pure hypercholesterolemia, unspecified; E03.9 Hypothyroidism, unspecified; J45.909 Unspecified asthma, uncomplicated; Z86.718 Personal history of other venous thrombosis and embolism; Z79.4 Long term (current) use of insulin; Z79.899 Other long term (current) drug therapy
CPT/HCPCS: 80053; 82550; 83690; 85025; 87637; 99283; 99284

== ENCOUNTER 2024-10-04 11:14 | Outpatient (AMB) | payer OTHER, SELFPAY ==
--- OUTSIDE RECORDS SUMMARY | 2024-10-04 12:31 | XMS_ITS | Encounter Summary ---
Author Organization [facility] Address [address] [place] [address] Encounters * CPT with Medical instED at [facility] on 2024-09-23 { reasonForRequest : PT reporting having asthma>noting her PCP gave her prednisone and antibiotics>recently vomited at 1:49pm est>tightness in her chest>weakness>is unsure if the antibiotic she took was too strong; she did not eat anything before taking>pt is on ozempic which affects her appetite>108/94 finger reading\n\nAllergies to Meds: Aspirin\nPMH: Asthma>diabetes> , patientReports : Cough, fever greater than 2 days ; History of asthma, increa sed use of inhaler; COVID Exposure; Sputum increase ; Cough; Pain with inspiration , denies :[ Increased work of breathing/labored with or without fever , Unable to speak in full sentences without distress , Discoloration of skin -cyanosis , Needs to sleep sitting up, can t catch breath , Shortness of breath in setting of confusion", Lower extremity swelling , COPD , Shortness of breath with exertion& quot;], chiefComplaints : Nausea / Vomiting, Weakness , pmh : Diabetes Mellitus Type 2, Hyperlipidemia, Hypertension, Kidney Stones, Hysterectomy, Hypothyroidism, Asthma , allergies : Aspirin, Ec-Naproxen , otherAllergies :null,&q uot;painAssessment : , visitOutcome : , additionalComments : 64 y.o female c/o chest tightness from asthma exacerbation, weakness, nausea, vomited x1, cough, chest congestion, chills, anxiety. Member was at a Festival recently and may have be exposed to illness, took home COVID negative. Member being treated with steroids and Antibiotics currently, ? Amoxicillin. Member on Ozempic also. Member feeling upset stomach/nausea and afraid to continue meds until assessment. POC glucose was 119. Primarily Luxem[place] Speaking. \nReferral for GI upset, chest congestion/cough/weakness. Member aware. \n\n\nI provided information on the mobile health provider response time and advised the patient and/or caregiver to monitor reported signs and symptoms. I discussed the warning signs of when to seek emergency care. } instED visit for female pt with complaint of vomiting. Visit was completed with harmonica maker by phone. Pt reports single episode of vomiting earlier this afternoon when she took her augmentin on an empty stomach. Pt reports she sipped water and milk afterwards and was able to settle stomach on her own and is currently asymptomatic. Pt prescribed augmentin along with prednisone a few days ago by PCP for reported asthma symptoms. Pt reports breathing has been better and that augmentin has been well tolerated by her in the past. Pt was just concerned after bout of vomiting. Pt presents appearing well in no obvious distress. V/S taken as listed. Pt afebrile. Abdomen soft and non tender. Lungs mostly clear with faint bilateral expiratory wheeze. Pt speaking full sentencesand not endorsing any shortness of breath. [place] with [facility] [place] Morales who prescribed some zofran sent to pt's pharmacy. Red flags relayed by Dr. Morales. Pt education provided. ORAL_MEDICATION, EKG, POC_BLOODWORK, URINE_DIPSTICK, WOUND_CARE Written by Medical instED on 2024-09-23
--- OUTSIDE RECORDS SUMMARY | 2024-10-04 12:31 | XMS_ITS | Clinical Summary ---
Author Organization [address] [facility] Address [address] [place] [address] Phone Care Team Providers Care Manager Corporate Strategy Name Role Phone Sariah Vickers NP Primary Care Provider [phone] Social History Tobacco Use Types Packs/Day Years [...] age to complete this topic Care Teams Manager Corporate Strategy Relationship Specialty Start Date End Date Sariah Vickers NP [address] [place] [phone] PCP - General 12/03/23
--- OUTSIDE RECORDS SUMMARY | 2024-10-04 12:31 | XMS_ITS | Encounter Summary ---
Author Organization [employer] Address [address] [facility] 7t [place] [address] Care Team Providers Care Machine Sand Mixer Name Role Phone Sariah Vickers Primary Care Provider [phone] Yuri Pierre PharmD Unavailable [phone] Basilio Hall MD Unavailable [phone] Ron Preciado MD Unavailable [phone] Reason for Visit * Reason Comments Med Refill Encounter Details Date Type Department Care Team (Late st Contact Info) Description 09/13/2022 Refill [facility] PEDS [address] [place] [address] Sariah Vickers ANP [address] [place] [address] Severe persistent allergic asthma without complication Social [...] Care Team (Late st Contact Info) Description 10/14/2024 1:30 PM EDT Office Visit [address] [address] Sariah Vickers ANP [address] [place] [address] 11/05/2024 2:30 PM EDT Office Visit [address] [address] Hallie Tapia MD [address] [place] [address] 11/12/2024 9:30 AM EDT Clinical Support [address] [address] Azeb Hall, MARTIN [address] [place] [address] 02/03/2025 11:00 AM EST Medication Management [address] [address] Yuri Pierre, PharmD [address] [place] [address] documented as of this encounter Visit Diagnoses Diagnosis Severe persistent allergic asthma without complication documented in this encounter Care Teams Machine Sand Mixer Relationship Specialty Start Date End Date Sariah Vickers ANP [address] [place] [address] PCP - General Family Medicine 09/23/19 Yuri Pierre, PharmD [address] [place] [address] Pharmacist Internal Medicine 05/05/24 Basilio Hall MD [address] [place] [address] Cardiology 05/17/24 Ron Preciado MD [address] [place] [address] Pulmonary Disease 05/17/24 documented as of this encounter
== END 2024-10-04 11:20 | disposition home or self-care (01) ==
LOC: HO.HMGAL 11:14
PROVIDERS: PCP Nurse Practitioner Primary Care; Visit Provider Registered Nurse Emergency
DX: J30.89 Other allergic rhinitis (principal)
CPT/HCPCS: 95117; 95165

== ENCOUNTER 2024-10-08 09:11 | Outpatient (REF) | payer OTHER, SELFPAY ==
--- NOTE | ~2024-10-08 | CT_ITS ---
CLINICAL HISTORY: F17.200 - Nicotine dependence, unspecified, uncomplicated Examination CT lung cancer screening History Screening examination performed for pulmonary nodules Technique Axial CT images of the chest using low-dose technique. Effective radiation dose total: 64.2 mGy-cm, CTDIvol 1.8 mGy. Referring provider counseled the patient on shared decision-making for LDCT screening. Additional counseling was provided on smoking cessation. Comparison: None available Findings: Lungs: Solid pulmonary nodules measure up to 5 mm (series 4, image 68, lingula). Calcified granuloma Mild emphysema. Mild amount of subsegmental atelectasis versus linear scarring which is most prominent at the lung bases Coronary artery calcifications: None Other: Dilated ascending aorta, measuring up to 4.2 cm and descending aorta, measuring up to 3.2 cm Limited upper abdomen: Abnormal contour of the kidneys could be secondary to scarring/atrophy. Fluid attenuation lesion in the upper pole of the left kidney measuring 3.3 cm Impression: LungRADS 2 - Benign Appearance: Continue annual screening with low dose Chest CT in 12 months. ##L2# Category 1: Normal; continue annual screening Category 2: Benign appearance or behavior, continue annual screening Category 3: Probably benign, [address] recommended Category 4A: Suspicious, [address] recommended; may consider PET/CT Category 4B: Suspicious, Additional diagnostics and/or tissue sampling recommended Category 4X: Suspicious, Additional diagnostics and/or tissue sampling recommended Category 0: Recalls (incomplete screen due to Incomplete coverage, Noise, Respiratory motion, Expiration, Obscured by acute abnormality) This document has been electronically signed by: Ligia Argueta MD on 10/09/2024 13:18:52
--- OUTSIDE RECORDS SUMMARY | 2024-10-08 09:20 | XMS_ITS | Encounter Summary ---
Author Organization [employer] Address [address] [facility] 7t [place] [address] Care Team Providers Care Guide Tour Name Role Phone Sariah Vickers Primary Care Provider [phone] Yuri Pierre PharmD Unavailable [phone] Basilio Hall MD Unavailable [phone] Ron Preciado MD Unavailable [phone] Reason for Visit * Reason Comments Med Refill Encounter Details Date Type Department Care Team (Late st Contact Info) Description 09/13/2022 Refill [facility] MED & PEDS [address] [place] [address] Sariah Vickers ANP [address] [place] [address] Severe persistent allergic asthma without complication Social [...] Description 10/14/2024 1:30 PM EDT Office Visit [address] [address] Sariah Vickers ANP [address] [place] [address] 11/05/2024 2:30 PM EDT Office Visit [address] [address] Hallie Tapia MD [address] [place] [address] 11/12/2024 9:30 AM EDT Clinical Support [address] [address] Azeb Hall, MARTIN [address] [place] [address] 02/03/2025 11:00 AM EST Medication Management [address] [address] Yuri Pierre, PharmD [address] [place] [address] documented as of this encounter Visit Diagnoses Diagnosis Severe persistent allergic asthma without complication documented in this encounter Care Teams Guide Tour Relationship Specialty Start Date End Date Sariah Vickers ANP [address] [place] [address] PCP - General Family Medicine 09/23/19 Yuri Pierre, PharmD [address] [place] [phone] Pharmacist Internal Medicine 05/05/24 Basilio Hall MD [address] [place] [address] Cardiology 05/17/24 Ron Preciado MD [address] [place] [address] Pulmonary Disease 05/17/24 documented as of this encounter
--- OUTSIDE RECORDS SUMMARY | 2024-10-08 09:20 | XMS_ITS | Clinical Summary ---
Author Organization [address] [facility] Address [address] [place] [address] Phone Care Team Providers Care Manufacturing Design Engineer Name Role Phone Sariah Vickers NP Primary Care Provider [phone] Social History Tobacco Use Types Packs/Day Years [...] age to complete this topic Care Teams Manufacturing Design Engineer Relationship Specialty Start Date End Date Sariah Vickers NP [address] [place] [phone] PCP - General 12/03/23
== END 2024-10-08 09:12 | disposition home or self-care (01) ==
LOC: HO.CT 09:11
PROVIDERS: PCP Nurse Practitioner Primary Care; Visit Provider Internal Medicine Pulmonary Disease
DX: Z12.2 Encounter for screening for malignant neoplasm of respiratory organs (principal); F17.210 Nicotine dependence, cigarettes, uncomplicated
CPT/HCPCS: 71271

== ENCOUNTER → 2024-10-08 09:13 | Outpatient (BNV) | payer OTHER, SELFPAY | PROVIDERS: PCP Nurse Practitioner Primary Care; Visit Provider Radiology Diagnostic Radiology | DX: Z12.2 Encounter for screening for malignant neoplasm of respiratory organs (principal); Z87.891 Personal history of nicotine dependence | CPT/HCPCS: 71271 ==

== ENCOUNTER 2024-10-11 09:01 | Outpatient (AMB) | payer OTHER, SELFPAY ==
--- OUTSIDE RECORDS SUMMARY | 2024-10-11 09:41 | XMS_ITS | Clinical Summary ---
Author Organization [address] [facility] Address [address] [place] [address] Phone Care Team Providers Care Disability Representative Name Role Phone Sariah Vickers NP Primary Care Provider [phone] Social History Tobacco Use Types Packs/Day Years [...] age to complete this topic Care Teams Disability Representative Relationship Specialty Start Date End Date Sariah Vickers NP [address] [place] [phone] PCP - General 12/03/23
--- OUTSIDE RECORDS SUMMARY | 2024-10-11 09:41 | XMS_ITS | Encounter Summary ---
Author Organization [employer] Address [address] [facility] 7[address] [place] [address] Care Team Providers Care Occupational Therapy Assistant Name Role Phone Sariah Vickers Primary Care Provider [phone] Yuri Pierre PharmD Unavailable [phone] Basilio Hall MD Unavailable [phone] Ron Preciado MD Unavailable [phone] Reason for Visit * Reason Comments Med Refill Encounter Details Date Type Department Care Team (Late st Contact Info) Description 09/13/2022 Refill [facility] P[facility]S [address] [place] [address] Sariah Vickers ANP [address] [place] [address] Severe persistent allergic asthma without complication Social [...] Description 10/14/2024 1:30 PM EDT Office Visit [address] [address] Sariah Vickers ANP [address] [place] [address] 11/05/2024 2:30 PM EDT Office Visit [address] [address] Hallie Tapia MD [address] [place] [address] 11/12/2024 9:30 AM EDT Clinical Support [address] [address] Azeb Hall, MARTIN [address] [place] [address] 02/03/2025 11:00 AM EST Medication Management [address] [address] Yuri Pierre, PharmD [address] [place] [address] documented as of this encounter Visit Diagnoses Diagnosis Severe persistent allergic asthma without complication documented in this encounter Care Teams Occupational Therapy Assistant Relationship Specialty Start Date End Date Sariah Vickers ANP [address] [place] [address] PCP - General Family Medicine 09/23/19 Yuri Pierre, PharmD [address] [place] [address] Pharmacist Internal Medicine 05/05/24 Basilio Hall MD [address] [place] [address] Cardiology 05/17/24 Ron Preciado MD [address] [place] [address] Pulmonary Disease 05/17/24 documented as of this encounter
== END 2024-10-11 12:53 | disposition home or self-care (01) ==
LOC: HO.HMGAL 09:01
PROVIDERS: PCP Nurse Practitioner Primary Care; Visit Provider Registered Nurse Emergency
DX: J30.89 Other allergic rhinitis (principal)
CPT/HCPCS: 95117; 95165

== ENCOUNTER 2024-10-12 13:12 | Outpatient (AMB) | payer OTHER, SELFPAY ==
--- NOTE | 2024-10-12 13:16 | MHC.OFFVIS ---
Vital Signs 10/12/24 13:18 Weight 200 lb 9.93 oz BP 111/78 Blood Pressure Location Lt brachial Position Sitting Pulse 85 Intake Visit Reasons: Follow up abd pain and US Intake Note: Nuvia presents in the office asa follow up for abdominal pains and ultrasound. CC: Sql Server Architect Required: Yes Sql Server Architect Name: [id number] Allergies Fish Containing Products Allergy (Intermediate, Verified 09/07/24 12:04) Swelling vancomycin Allergy (Intermediate, Verified 09/07/24 12:04) Rash aspirin (Aspirin) Allergy (Mild, Verified 09/07/24 12:04) ITCHY THROAT azithromycin Allergy (Unknown, Verified 09/07/24 12:04) Unknown naproxen Allergy (Unknown, Verified 09/07/24 12:04) Unknown simvastatin Allergy (Unknown, Verified 09/07/24 12:04) Unknown onion (ONION) Adverse Reaction (Mild, Verified 09/07/24 12:04) RED FACE HPI HPI Follow up abd pain and US: Details: Assessment & Plan (1) Transaminitis: Comment: sudden increase over her baseline Code(s): R74.01 - Elevation of levels of liver transaminase levels Category: Medical (2) Uncontrolled type 2 diabetes mellitus with hyperglycemia, with long-term current use of insulin: Code(s): E11.65 - Type 2 diabetes mellitus with hyperglycemia; Z79.4 - senior care (current) use of insulin Category: Medical (3) OKEEFE (nonalcoholic steatohepatitis): Comment: LABS; 07/2011 LIver panel is totally normal, hemoglobin A1c covers around 7, alpha fetoprotein tumor marker at baseline is 1.6, 05/2018 autoimmune workup is negative, ferritin is normal at 49, she is immune to hepatitis a B and negative for hepatitis C. CURRENT LABS 05/30/24 13:17 WBC 6.0 Hgb 14.6 Hct 42.3 Plt Count 269 Estimated GFR > 60 Total Bilirubin 0.5 AST 197 H ALT 243 H Alkaline Phosphatase [address] abdomen and pelvis with contrast 03/20/2024 Comparison: CT/[facility] - CT ABDOMEN WO/W IV CON - 09/05/23 16:27 EDT Findings: No consolidation or effusion. There is a 3 cm cyst within the superior pole of the left kidney. Posterior atrophy of the right kidney. No hydronephrosis of either kidney. No ureteral stones. Spleen, adrenal glands, pancreas, gallbladder and liver are unremarkable. No bowel obstruction, pneumoperitoneum, or pneumatosis. There are scattered colonic diverticula, however no evidence of diverticulitis. Skin thickening over the anterior right abdomen. No underlying fluid collection or abscess. No subcutaneous gas. Incidentally noted lateral right abdominal wall lipoma measuring 4.0 x 8.1 cm, unchanged. Small fat containing right inguinal hernia. Infrarenal abdominal aorta measures 2.7 x 2.9 cm. Aorta previously measured 2.9 x 3.0, not significantly changed. There are mild wall calcifications of the abdominal aorta. Pelvic contents unremarkable. Normal appendix. The bones are intact. Mild degenerative changes of the lumbar spine. Small fat containing umbilical hernia. IMPRESSION: 1. Skin thickening over the anterior right abdominal wall, compatible with cellulitis. No underlying abscess. 2. Borderline aneurysmal infrarenal abdominal aorta measuring 2.7 x 2.9 cm Code(s): K75.81 - Nonalcoholic steatohepatitis (OKEEFE) Category: Medical (4) Small bowel motility disorder: Code(s): K59.9 - Functional intestinal disorder, unspecified Category: Medical (5) GERD (gastroesophageal reflux disease): Code(s): K21.9 - Gastro-esophageal reflux disease without esophagitis Category: Medical (6) Chronic idiopathic constipation: Code(s): K59.04 - Chronic idiopathic constipation Category: Medical (7) Abdominal pain: Code(s): R10.9 - Unspecified abdominal pain Category: Medical Plan MACEDONIAN #Satishira She had recent hernia surgery, and developed a cellulitis of the area. She had IV abx and it is improving. She says her cholesterol medication was taken away but she does not know why - investigation of the labs shows she is triple digit transaminases, so this is the likely reason. I will institute an investigation. Her diabetes also has not been controlled, she was seeing endocrinology, but He keeps changing meds and I was doing well on Ozempic but had N/V on Mounjaro so her PCP will now control her diabetes per her report. She also has a cough. Has had CIC lately, eating out a lot. Having rectal pain. Will get labs and US..... Contributing factors could be the IV antibiotics (she was treated with vancomycin), worsening diabetes control due to changing medications and we need to rule out any chronic infections like hepatitis AB or C. ROV next avail. Orders: Orders Smooth Muscle Antibody Today E11.65 - Type 2 diabetes mellitus with hyperglycemia, R10.9 - Unspecified abdominal pain, R74.01 - Elevation of levels of liver transaminase levels, Z79.4 - senior care (current) use of insulin Mitochondrial Antibody Today E11.65 - Type 2 diabetes mellitus with hyperglycemia, R10.9 - Unspecified abdominal pain, R74.01 - Elevation of levels of liver transaminase levels, Z79.4 - continuous churn buttermaker (current) use of insulin Monotest Today E11.65 - Type 2 diabetes mellitus with hyperglycemia, R10.9 - Unspecified abdominal pain, R74.01 - Elevation of levels of liver transaminase levels, Z79.4 - continuous churn buttermaker (current) use of insulin Hemoglobin A1c Today E11.65 - Type 2 diabetes mellitus with hyperglycemia, R10.9 - Unspecified abdominal pain, R74.01 - Elevation of levels of liver transaminase levels, Z79.4 - continuous churn buttermaker (current) use of insulin REX Reflex Titer and Pattern Today E11.65 - Type 2 diabetes mellitus with hyperglycemia, R10.9 - Unspecified abdominal pain, R74.01 - Elevation of levels of liver transaminase levels, Z79.4 - senior care (current) use of insulin Lipase Today E11.65 - Type 2 diabetes mellitus with hyperglycemia, R10.9 - Unspecified abdominal pain, R74.01 - Elevation of levels of liver transaminase levels, Z79.4 - senior care (current) use of insulin CRP High Sensitivity Today R10.9 - Unspecified abdominal pain, R74.01 - Elevation of levels of liver transaminase levels US abdomen complete Today R10.9 - Unspecified abdominal pain, R74.01 - Elevation of levels of liver transaminase levels Liver Panel Today E11.65 - Type 2 diabetes mellitus with hyperglycemia, R10.9 - Unspecified abdominal pain, R74.01 - Elevation of levels of liver transaminase levels, Z79.4 - senior care (current) use of insulin Alpha Fetoprotein Today E11.65 - Type 2 diabetes mellitus with hyperglycemia, R10.9 - Unspecified abdominal pain, R74.01 - Elevation of levels of liver transaminase levels, Z79.4 - continuous churn buttermaker (current) use of insulin Hepatitis A,B,C Profile Today E11.65 - Type 2 diabetes mellitus with hyperglycemia, R10.9 - Unspecified abdominal pain, R74.01 - Elevation of levels of liver transaminase levels, Z79.4 - continuous churn buttermaker (current) use of insulin HIV Ab/Ag Today E11.65 - Type 2 diabetes mellitus with hyperglycemia, R10.9 - Unspecified abdominal pain, R74.01 - Elevation of levels of liver transaminase levels, Z79.4 - continuous churn buttermaker (current) use of insulin Ferritin Today E11.65 - Type 2 diabetes mellitus with hyperglycemia, R10.9 - Unspecified abdominal pain, R74.01 - Elevation of levels of liver transaminase levels, Z79.4 - continuous churn buttermaker (current) use of insulin Amylase Today E11.65 - Type 2 diabetes mellitus with hyperglycemia, R10.9 - Unspecified abdominal pain, R74.01 - Elevation of levels of liver transaminase levels, Z79.4 - continuous churn buttermaker (current) use of insulin Medications: New plecanatide (Trulance) 3 mg PO BEDTIME 30 tabs 12RF hydrocortisone 2.5% (Proctosol HC) BE SURE TO INCLUDE RECTAL APPICATOR!! 1 appl VA BID 30 grams 6RF hemorrhoids K64.9 - Unspecified hemorrhoids Lactobacillus rhamnosus GG (Culturelle) 1 cap PO DAILY 30 caps 12RF Refilled omeprazole 20 mg PO BID 60 caps 6RF metoclopramide HCl 5 mg PO TID 90 tabs 6RF K59.9 - Functional intestinal disorder, unspecified sennosides (senna) 17.2 mg (2 x 8.6 mg) PO BEDTIME 60 tabs 6RF for constipation LABS: Laboratory Tests 05/30/24 06/15/24 06/18/24 13:17 15:08 10:18 Plt Count 269 Total Bilirubin AST 61 H ALT 72 H Alkaline Phosphatase 122 H Lipase REX Screen POSITIVE A REX Titer 1:1280 H REX Pattern Nuclear, Homogeneous A Anti-Mitochondrial Ab NEGATIVE Anti-Smooth Muscle Ab 69 H Hepatitis A IgM Ab Nonreactive Hep Bs Antigen Negative Hep Bs Antibody REACTIVE Hep B Core Total Ab Nonreactive Hepatitis C Ab (EIA) Nonreactive Monoscreen Negative HIV 1&2 Ab/P24 Ag 4thGn Nonreactive 09/07/24 12:16 Plt Count Total Bilirubin 0.3 AST 31 ALT 20 Alkaline Phosphatase 94 Lipase 25 REX Screen REX Titer REX Pattern Anti-Mitochondrial Ab Anti-Smooth Muscle Ab Hepatitis A IgM Ab Hep Bs Antigen Hep Bs Antibody Hep B Core Total Ab Hepatitis C Ab (EIA) Monoscreen HIV 1&2 Ab/P24 Ag 4thGn ULTRASOUND OF THE ABDOMEN TODAY'S VISIT [facility] Medical History Severe persistent asthma NIDDY (non-insulin dependent diabetes mellitus in young) COPD (chronic obstructive pulmonary disease) Cellulitis of labia Pulmonary hypertension, pre-operative cardiovascular examination Arthritis Thyroid disease Bilateral renal cysts Right bundle branch block Dental calculus Depression Varicose veins of left lower extremity Ectatic aorta Paresthesia Paresis of one side of face Neck pain Insomnia disorder, with non-sleep disorder mental comorbidity Increased immunoglobulin Constipation Aneurysm of left internal carotid artery Abnormal ultrasound of kidney Type 2 diabetes mellitus History of kidney stones Abnormal finding on ultrasound Tear of medial meniscus of left knee Leg pain Kidney stone on left side MOCK (dyspnea on exertion) Patellofemoral arthritis of left knee Trochanteric bursitis of right hip COVID-19 Carpal tunnel syndrome of right wrist Renal calculi UTI (urinary tract infection) Allergic rhinitis Anxiety and depression Fibromyalgia HTN (hypertension) PTSD (post-traumatic stress disorder) Preop pulmonary/respiratory exam Vertigo Diabetes Asthma Chest pain Tubular adenoma of colon Vulvovaginitis Acute asthma exacerbation Candidiasis of mouth and esophagus Bronchitis Spondylosis of cervical region without myelopathy or radiculopathy Bronchitis COPD exacerbation Yeast infection Papanicolaou smear for cervical cancer screening Bilateral hand pain Bilateral knee pain Low vitamin D level Dry mouth Environmental allergies Non-toxic multinodular goiter Hypothyroidism Type 2 diabetes mellitus with hyperglycemia DVT (deep venous thrombosis) Menopausal state Cocaine abuse Surgical History Encounter for postoperative wound check Status post umbilical hernia repair, follow-up exam Carbuncle and furuncle of buttock Carbuncle of abdominal wall Umbilical hernia Umbilical hernia Hx of carpal tunnel repair History of esophagogastroduodenoscopy (EGD) H/O colonoscopy with polypectomy History of selective injection of anesthetic agent around lumbar nerve root Hx of right breast biopsy History of hysterectomy History of lithotripsy Family History Father No problems noted. 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 Female Reproductive History Menstrual Age of Menarche: 10 Review of Systems Const Denies fatigue, Denies fever(s), Denies night sweats, Denies poor appetite and Reports weight loss ENT Reports Normal hearing present, Denies dental pain, Denies dysphagia, Denies hearing loss, Denies mouth pain, Denies odynophagia, Denies throat swelling, Denies tongue swelling and Reports other (Dentition adequate) Card Reports no additional complaints Resp Reports no additional complaints GI Details: Denies abdominal pain, Denies melena, Denies bloating, Denies hematochezia, Reports constipation, Denies GI cramping, Denies dysphagia, Denies excessive flatus, Denies early satiety, Reports heartburn, Denies diarrhea, Reports nausea, Denies odynophagia, Denies vomiting and Denies hematemesis Skin/Breast Denies pruritus, Denies lesions, Denies rash and Denies jaundice Neuro Reports Normal hearing present and Denies Abnormal speech present Endo Denies fatigue Aller/Immun Denies throat swelling and Denies tongue swelling Physical Exam Vital Signs: Last Vital Signs Pulse 85 10/12/24 13:18 BP 111/78 10/12/24 13:18 Const General: cooperative, no acute distress, well developed and well groomed Nutritional Appearance: well nourished and obese Orientation/consciousness: oriented to person, oriented to place and oriented to time Limitations: language barrier HEENT Head: Yes normocephalic and Yes atraumatic Eyes General: appearance normal, both eyes and all related structures Pupils: Equal, round and reactive pupils present Neck Neck: Yes normal visual inspection and Yes no lymphadenopathy Thyroid: Thyroid normal Resp Effort & Inspection: normal respiratory effort and able to speak in complete sentences Auscultation: clear to auscultation bilaterally Cardio Rate: regular rate Rhythm: regular rhythm Heart sounds: Normal, physiologic split S2 sound present Peripheral pulses: radial pulses present and posterior tibial pulses present GI Inspection: No distended, Yes Abdominal panniculus present and Yes obesity Palpation (GI): Soft to palpation, nontender, no guarding, not rigid and No hepatosplenomegaly present Percussion: Yes normal to percussion Auscultation: normal bowel sounds Rectal Exam - Female: deferred Skin General skin exam: no rashes or lesions noted, turgor normal, skin not dry, no jaundice, No spider nevi and no striae Rashes: no rashes Nails: normal Neuro General: oriented to person, oriented to place and oriented to time Cranial nerves: Yes Equal, round and reactive pupils present and Yes Normal hearing present Speech: No Abnormal speech present Extrem General: Yes normal to inspection, No clubbing, No cyanosis and No edema Psych Appearance: grossly normal and well kempt Mental Status: mental status grossly normal Speech and movement: Normal speech and movement present Affect: normal affect Attitude: cooperative Thought process: Normal thought process present and not confabulating Thought content: Normal thought content present Insight: Limited insight present (Psych) Judgement: Limited judgement present (Psych) Results Reviewed Results Reviewed: Laboratory Tests 05/30/24 06/15/24 06/18/24 13:17 15:08 10:18 Plt Count 269 Total Bilirubin AST 61 H ALT 72 H Alkaline Phosphatase 122 H Lipase REX Screen POSITIVE A REX Titer 1:1280 H REX Pattern Nuclear, Homogeneous A Anti-Mitochondrial Ab NEGATIVE Anti-Smooth Muscle Ab 69 H Hepatitis A IgM Ab Nonreactive Hep Bs Antigen Negative Hep Bs Antibody REACTIVE Hep B Core Total Ab Nonreactive Hepatitis C Ab (EIA) Nonreactive Monoscreen Negative HIV 1&2 Ab/P24 Ag 4thGn Nonreactive 09/07/24 12:16 Plt Count Total Bilirubin 0.3 AST 31 ALT 20 Alkaline Phosphatase 94 Lipase 25 REX Screen REX Titer REX Pattern Anti-Mitochondrial Ab Anti-Smooth Muscle Ab Hepatitis A IgM Ab Hep Bs Antigen Hep Bs Antibody Hep B Core Total Ab Hepatitis C Ab (EIA) Monoscreen HIV 1&2 Ab/P24 Ag 4thG Assessment & Plan Assessment & Plan (1) Uncontrolled type 2 diabetes mellitus with hyperglycemia, with long-term current use of insulin: Code(s): E11.65 - Type 2 diabetes mellitus with hyperglycemia; Z79.4 - continuous churn buttermaker (current) use of insulin Category: Medical (2) Transaminitis: Comment: sudden increase over her baseline Code(s): R74.01 - Elevation of levels of liver transaminase levels Category: Medical (3) Elevated antinuclear antibody (REX) level: Code(s): R76.8 - Other specified abnormal immunological findings in serum Category: Medical (4) Nausea: Code(s): R11.0 - Nausea Category: Medical (5) OKEEFE (nonalcoholic steatohepatitis): Comment: LABS; 07/2011 LIver panel is totally normal, hemoglobin A1c covers around 7, alpha fetoprotein tumor marker at baseline is 1.6, 05/2018 autoimmune workup is negative, ferritin is normal at 49, she is immune to hepatitis a B and negative for hepatitis C. LABS ARE ELEVATED AFTER ANTIBIOTIC TREATMENT 05/30/24 13:17 WBC 6.0 Hgb 14.6 Hct 42.3 Plt Count 269 Estimated GFR > 60 Total Bilirubin 0.5 AST 197 H ALT 243 H Alkaline Phosphatase 164 H CURRENT LABS 05/31/2503/ 13:1715:0810:18 Plt Count 269 Total Bilirubin AST 61 H ALT 72 H Alkaline Phosphatase 122 H Lipase REX Screen POSITIVE A REX Titer 1:1280 H REX Pattern Nuclear, Homogeneous A Anti-Mitochondrial Ab NEGATIVE Anti-Smooth Muscle Ab 69 H Hepatitis A IgM Ab Nonreactive Hep Bs Antigen Negative Hep Bs Antibody REACTIVE Hep B Core Total Ab Nonreactive Hepatitis C Ab (EIA) Nonreactive Monoscreen Negative HIV 1&2 Ab/P24 Ag 4thGn Nonreactive Total Bilirubin 0.3 AST 31 ALT 20 Alkaline Phosphatase [address] abdomen and pelvis with contrast 03/20/2024 Comparison: [facility] - CT ABDOMEN WO/W IV CON - 09/05/23 16:27 EDT Findings: No consolidation or effusion. There is a 3 cm cyst within the superior pole of the left kidney. Posterior atrophy of the right kidney. No hydronephrosis of either kidney. No ureteral stones. Spleen, adrenal glands, pancreas, gallbladder and liver are unremarkable. No bowel obstruction, pneumoperitoneum, or pneumatosis. There are scattered colonic diverticula, however no evidence of diverticulitis. Skin thickening over the anterior right abdomen. No underlying fluid collection or abscess. No subcutaneous gas. Incidentally noted lateral right abdominal wall lipoma measuring 4.0 x 8.1 cm, unchanged. Small fat containing right inguinal hernia. Infrarenal abdominal aorta measures 2.7 x 2.9 cm. Aorta previously measured 2.9 x 3.0, not significantly changed. There are mild wall calcifications of the abdominal aorta. Pelvic contents unremarkable. Normal appendix. The bones are intact. Mild degenerative changes of the lumbar spine. Small fat containing umbilical hernia. IMPRESSION: 1. Skin thickening over the anterior right abdominal wall, compatible with cellulitis. No underlying abscess. 2. Borderline aneurysmal infrarenal abdominal aorta measuring 2.7 x 2.9 cm Code(s): K75.81 - Nonalcoholic steatohepatitis (OKEEFE) Category: Medical (6) Small bowel motility disorder: Code(s): K59.9 - Functional intestinal disorder, unspecified Category: Medical (7) Chronic idiopathic constipation: Code(s): K59.04 - Chronic idiopathic constipation Category: Medical (8) GERD (gastroesophageal reflux disease): Code(s): K21.9 - Gastro-esophageal reflux disease without esophagitis Category: Medical Plan Her GI regimen consists of Trulance, Colace, a probiotic, metoclopramide 5 mg 3 times a day, omeprazole twice a day, and senna as needed for breakthrough constipation. She is on Ozempic and this is causing her to have quite a bit of nausea and she is not eating much but she is losing weight which was the reason it was prescribed. Checking on her liver function tests, they had been very elevated after she had her surgery and after she was treated with too strong antibiotics for cellulitis but since she has lost weight it seems that her liver functions have now normalized. In investigating why her liver functions may have been elevated I noticed a very high REX. This could be signs of an autoimmune disease but it also could be from the potential immune system reactions to the liver insult. She is not having any particular myalgias or arthralgias at this time. It was elevated consistent with a connective tissue disorder and she also had an elevated smooth muscle antibody. I think we are going to repeat these labs and simply watch for now to see if I think she should be referred anywhere else are consider anything like autoimmune liver disease. This seems extremely unlikely given the normalization of her liver function testing. She is also a diabetic so we might want to check her A1c to see if this any metabolic contribution. Overall she still satisfied with her GI regimen. Return office visit in 6 months Orders: Orders C Reactive Protein Today E11.65 - Type 2 diabetes mellitus with hyperglycemia, R74.01 - Elevation of levels of liver transaminase levels, R76.8 - Other specified abnormal immunological findings in serum, Z79.4 - continuous churn buttermaker (current) use of insulin Ferritin Today E11.65 - Type 2 diabetes mellitus with hyperglycemia, R74.01 - Elevation of levels of liver transaminase levels, R76.8 - Other specified abnormal immunological findings in serum, Z79.4 - continuous churn buttermaker (current) use of insulin TSH reflex Free T4 Today E11.65 - Type 2 diabetes mellitus with hyperglycemia, R74.01 - Elevation of levels of liver transaminase levels, R76.8 - Other specified abnormal immunological findings in serum, Z79.4 - senior care (current) use of insulin REX Reflex Titer and Pattern Today R74.01 - Elevation of levels of liver transaminase levels Amylase Today R11.0 - Nausea Lipase Today R11.0 - Nausea Hemoglobin A1c Today E11.65 - Type 2 diabetes mellitus with hyperglycemia, R74.01 - Elevation of levels of liver transaminase levels, R76.8 - Other specified abnormal immunological findings in serum, Z79.4 - senior care (current) use of insulin Prothrombin Time INR Today E11.65 - Type 2 diabetes mellitus with hyperglycemia, R74.01 - Elevation of levels of liver transaminase levels, R76.8 - Other specified abnormal immunological findings in serum, Z79.4 - senior care (current) use of insulin Smooth Muscle Antibody Today R74.01 - Elevation of levels of liver transaminase levels Medications: Refilled docusate sodium (Stool Softener) 100 mg PO BID 60 caps 6RF K59.04 - Chronic idiopathic constipation metoclopramide HCl 5 mg PO TID 90 tabs 6RF K59.9 - Functional intestinal disorder, unspecified omeprazole 20 mg PO BID 60 caps 6RF plecanatide (Trulance) 3 mg PO BEDTIME 30 tabs 12RF sennosides (senna) 17.2 mg (2 x 8.6 mg) PO BEDTIME 60 tabs 6RF for constipation Coding Level of Care Code Est Pt Level 4 (95584) Diagnoses Uncontrolled type 2 diabetes mellitus with hyperglycemia, with long-term current use of insulin E11.65; Z79.4 Transaminitis R74.01 Elevated antinuclear antibody (REX) level R76.8 Nausea R11.0 OKEEFE (nonalcoholic steatohepatitis) K75.81 Small bowel motility disorder K59.9 Chronic idiopathic constipation K59.04 GERD (gastroesophageal reflux disease) K21.9 Time Spent (min) 33
[2024-10-12 13:18] VITALS: BP 111/78; PULSE 85
--- OUTSIDE RECORDS SUMMARY | 2024-10-12 14:00 | XMS_ITS | Encounter Summary ---
Author Organization [employer] Address 75 [facility] 7t [place] [address] Care Team Providers Care Erection Shop Supervisor Name Role Phone Sariah Vickers Primary Care Provider [phone] Yuri Pierre PharmD Unavailable [phone] Basilio Hall MD Unavailable [phone] Ron Preciado MD Unavailable [phone] Encounter Details Date Type Department Care Team (Late st Contact Info) Description 01/09/2022 Abstract [facility] [address] [place] [address] Dental, Provider, DDS Social History Tobacco Use [...] Department Care Team (Late Contact Info) Description 10/14/2024 1:30 PM EDT Office Visit [facility] [address] [place] [address] Sariah Vickers ANP [address] [place] [address] 11/05/2024 2:30 PM EDT Office Visit [facility] [address] [place] [address] Hallie Tapia MD [address] [place] [address] [phone] 11/12/2024 9:30 AM EDT Clinical Support [address] [address] Azeb Hall, RN 505 [place] [address] 02/03/2025 11:00 AM EST Medication Management [facility] [address] [place] [address] Yuri Pierre, PharmD [address] [place] [address] documented as of this encounter Procedures Procedure [...] on filedocumented in this encounter Care Teams Erection Shop Supervisor Relationship Specialty Start Date End Date Sariah Vickers ANP 230 [place] [address] PCP - General Family Medicine 09/23/19 Yuri Pierre, PharmD 230 [place] [address] Pharmacist Internal Medicine 05/05/24 Basilio Hall MD 596 [place] [address] Cardiology 05/17/24 Ron Preciado MD [address] [place] [address] Pulmonary Disease 05/17/24 documented as of this encounter
--- OUTSIDE RECORDS SUMMARY | 2024-10-12 14:00 | XMS_ITS | Encounter Summary ---
Author Organization [employer] Address 75 [facility] 7t [place] [address] Care Team Providers Care Loom Technician Name Role Phone Sariah Vickers Primary Care Provider [phone] Yuri Pierre PharmD Unavailable [phone] Basilio Hall MD Unavailable [phone] Ron Preciado MD Unavailable [phone] Reason for Visit * Reason Comments Med Refill Encounter Details Date Type Department Care Team (Late st Contact Info) Description 09/13/2022 Refill [facility] [address] [place] [address] Sariah Vickers ANP 230 [place] [address] Severe persistent allergic asthma without complication Social [...] Description 10/14/2024 1:30 PM EDT Office Visit [address] [address] Sariah Vickers ANP [address] [place] [address] 11/05/2024 2:30 PM EDT Office Visit [address] [address] Hallie Tapia MD [address] [place] [address] 11/12/2024 9:30 AM EDT Clinical Support [address] [address] Azeb Hall, MARTIN 505 [place] [address] 02/03/2025 11:00 AM EST Medication Management [address] [address] Yuri Pierre, PharmD [address] [place] [address] documented as of this encounter Visit Diagnoses Diagnosis Severe persistent allergic asthma without complication documented in this encounter Care Teams Loom Technician Relationship Specialty Start Date End Date Sariah Vickers ANP [address] [place] [address] PCP - General Family Medicine 09/23/19 Yuri Pierre, PharmD [address] [place] [address] Pharmacist Internal Medicine 05/05/24 Basilio Hall MD 596 [place] [address] Cardiology 05/17/24 Ron Preciado MD [address] [place] [address] Pulmonary Disease 05/17/24 documented as of this encounter
--- OUTSIDE RECORDS SUMMARY | 2024-10-12 14:00 | XMS_ITS | Encounter Summary ---
Author Organization [employer] Address 75 [facility] 7t [place] [address] Care Team Providers Care Wrap Turner Name Role Phone Sariah Vickers Primary Care Provider Yuri Pierre PharmD Unavailable [phone] Basilio Hall MD Unavailable [phone] Ron Preciado MD Unavailable [phone] Encounter Details Date Type Department Care Team (Latest Contact Info) Description 04/14/2020 Abstract [facility] Dental, Provider, DDS [...] Description 10/14/2024 1:30 PM EDT Office Visit [facility] [address] [place] [address] [phone] Sariah Vickers ANP [address] [place] [address] 11/05/2024 2:30 PM EDT Office Visit [facility] [address] [place] [address] Hallie Tapia MD [address] [place] [address] [phone] 11/12/2024 9:30 AM EDT Clinical Support [address] [address] Azeb Hall, RN 505 [place] [address] 02/03/2025 11:00 AM EST Medication Management [address] [address] Yuri Pierre, PharmD [address] [place] [address] documented as of this encounter Visit Diagnoses Not on filedocumented in this encounter Care Teams Wrap Turner Relationship Specialty Start Date End Date Sariah Vickers ANP [address] [place] [address] PCP - General Family Medicine 09/23/19 Yuri Pierre, PharmD [address] [place] [address] Pharmacist Internal Medicine 05/05/24 Basilio Hall MD [address] [place] [address] Cardiology 05/17/24 Ron Preciado MD [address] [place] [address]66 Pulmonary Disease 05/17/24 documented as of this encounter
--- OUTSIDE RECORDS SUMMARY | 2024-10-12 14:00 | XMS_ITS | Encounter Summary ---
Author Organization [employer] Address 75 [facility] 7t [place] [address] Care Team Providers Care Hand Tube Bender Name Role Phone Sariah Vickers Primary Care Provider Yuri Pierre PharmD Unavailable [phone] Basilio Hall MD Unavailable [phone] Ron Preciado MD Unavailable [phone] Encounter Details Date Type Department Care Team (Latest Contact Info) Description 06/20/2021 Abstract [facility] Dental, Provider, DDS Social [...] Description 10/14/2024 1:30 PM EDT Office Visit [facility] [address] [place] [address] [phone] Sariah Vickers ANP [address] [place] [address] 11/05/2024 2:30 PM EDT Office Visit [facility] [address] [place] [address] Hallie Tapia MD [address] [place] [address] [phone] 11/12/2024 9:30 AM EDT Clinical Support [address] [address] Azeb Hall, RN 505 [place] [address] 02/03/2025 11:00 AM EST Medication Management [address] [address] Yuri Pierre, PharmD [address] [place] [address] documented as of this encounter Visit Diagnoses Not on filedocumented in this encounter Care Teams Hand Tube Bender Relationship Specialty Start Date End Date Sariah Vickers ANP [address] [place] [address] PCP - General Family Medicine 09/23/19 Yuri Pierre, PharmD [address] [place] [address] Pharmacist Internal Medicine 05/05/24 Basilio Hall MD [address] [place] [address] Cardiology 05/17/24 Ron Preciado MD [address] [place] [address] Pulmonary Disease 05/17/24 documented as of this encounter
--- OUTSIDE RECORDS SUMMARY | 2024-10-12 14:00 | XMS_ITS | Encounter Summary ---
Author Organization [employer] Address 75 [facility] 7t [place] [address] Care Team Providers Care Resource Conservation Specialist Name Role Phone Sariah Vickers Primary Care Provider [phone] Yuri Pierre PharmD Unavailable [phone] Basilio Hall MD Unavailable [phone] Ron Preciado MD Unavailable [phone] Reason for Visit * Reason Comments Med Refill Encounter Details Date Type Department Care Team (Late st Contact Info) Description 08/22/2023 Refill [facility] 230 [place] [address] Sariah Vickers ANP 230 [place] [address] Neck pain Social History Tobacco Use Types [...] Description 10/14/2024 1:30 PM EDT Office Visit [address] [address] Sariah Vickers, ANP [address] [place] [address] 11/05/2024 2:30 PM EDT Office Visit [address] [address] Hallie Tapia MD [address] [place] [address] 11/12/2024 9:30 AM EDT Clinical Support [address] [address] Azeb Hall, MARTIN [address] [place] [address] 02/03/2025 11:00 AM EST Medication Management [address] [address] Yuri Pierre, PharmD [address] [place] [address] documented as of this encounter Goals Goal Patient Goal Type Associated Problems Recent Progress Patient-Stated? Author Blood Pressure < 140/90 Blood Pressure 122/84(2024 10:22 AM EDT) No Aida Ragland PharmBear Record [...] documented as of this encounter Care Teams Resource Conservation Specialist Relationship Specialty Start Date End Date Sariah Vickers ANP 230 [place] [address] PCP - General Family Medicine 09/23/19 Yuri Pierre PharmD [address] [place] [address] Pharmacist Internal Medicine 05/05/24 Basilio Hall MD 596 [place] [address] Cardiology 05/17/24 Ron Preciado MD [address] [place] [address] Pulmonary Disease 05/17/24 documented as of this encounter
--- OUTSIDE RECORDS SUMMARY | 2024-10-12 14:00 | XMS_ITS | Encounter Summary ---
Author Organization [employer] Address 75 [facility] 7t [place] [address] Care Team Providers Care Master Craftsman Name Role Phone Sariah Vickers Primary Care Provider Yuri Pierre PharmD Unavailable [phone] Basilio Hall MD Unavailable [phone] Ron Preciado MD Unavailable [phone] Encounter Details Date Type Department Care Team (Latest Contact Info) Description 05/15/2018 Abstract [facility] CON[facility] Dental, Provider, DDS Social History [...] Description 10/14/2024 1:30 PM EDT Office Visit [facility] [address] [place] [address] Sariah Vickesr ANP [address] [place] [address] 11/05/2024 2:30 PM EDT Office Visit [facility] [address] [place] [address] Hallie Tapia MD [address] [place] [address] [phone] 11/12/2024 9:30 AM EDT Clinical Support [address] [address] Azeb Hall, RN 505 [place] [address] 02/03/2025 11:00 AM EST Medication Management [address] [address] Yuri Pierre, PharmD 230 [place] [address] documented as of this encounter Visit Diagnoses Not on filedocumented in this encounter Care Teams Master Craftsman Relationship Specialty Start Date End Date Sariah Vickers ANP [address] [place] [address] PCP - General Family Medicine 09/23/19 Yuri Pierre, PharmD [address] [place] [address] Pharmacist Internal Medicine 05/05/24 Basilio Hall MD [address] [place] [address] Cardiology 05/17/24 Ron Preciado MD [address] [place] [address] Pulmonary Disease 05/17/24 documented as of this encounter
--- OUTSIDE RECORDS SUMMARY | 2024-10-12 14:00 | XMS_ITS | Encounter Summary ---
Author Organization [employer] Address 75 [facility] 7t [place] [address] Care Team Providers Care Grape Pruner Name Role Phone Sariah Vickers Primary Care Provider [phone] Yuri Pierre PharmD Unavailable [phone] Basilio Hall MD Unavailable [phone] Ron Preciado MD Unavailable [phone] Reason for Visit * Reason Comments Med Refill Encounter Details Date Type Department Care Team (Late st Contact Info) Description 02/06/2022 Refill [facility] 230 [place] [address] Sariah Vickers ANP 230 [place] [address] Social History Tobacco Use Types Packs/Day Years [...] Description 10/14/2024 1:30 PM EDT Office Visit [address] [address] Sariah Vickers ANP [address] [place] [address] 11/05/2024 2:30 PM EDT Office Visit [address] [address] Hallie Tapia MD [address] [place] [address] 11/12/2024 9:30 AM EDT Clinical Support [address] [address] Azeb Hall RN 505 [place] [address] 02/03/2025 11:00 AM EST Medication Management [address] [address] Yuri Pierre, Dileep [address] [place] [address] documented as of this encounter Visit Diagnoses Not on filedocumented in this encounter Care Teams Grape Pruner Relationship Specialty Start Date End Date Sariah Vickers ANP [address] [place] [address] PCP - General Family Medicine 09/23/19 Yuri Pierre, PharmD [address] [place] [address] Pharmacist Internal Medicine 05/05/24 Basilio Hall MD [address] [place] [address] Cardiology 05/17/24 Ron Preciado MD [address] [place] [address] Pulmonary Disease 05/17/24 documented as of this encounter
--- OUTSIDE RECORDS SUMMARY | 2024-10-12 14:03 | XMS_ITS | Encounter Summary ---
Author Organization [employer] Address 75 [facility] 7t [place] [address] Care Team Providers Care Salvage Clerk Name Role Phone Sariah Vickers Primary Care Provider Yuri Pierre PharmD Unavailable [phone] Basilio Hall MD Unavailable [phone] Ron Preciado MD Unavailable [phone] Reason for Visit * Reason Comments Med Refill Encounter Details Date Type Department Care Team (Late st Contact Info) Description 01/04/2024 Refill [facility] [address] [place] [address] Sariah Vickers ANP 230 [place] [address] Cervicalgia Social History Tobacco Use Types Packs/Day [...] Description 10/14/2024 1:30 PM EDT Office Visit [address] [address] Sariah Vickers ANP [address] [place] [address] 11/05/2024 2:30 PM EDT Office Visit [address] [address] Hallie Tapia MD [address] [place] [address] 11/12/2024 9:30 AM EDT Clinical Support [address] [address] Azeb Hall, MARTIN [address] [place] [address] 02/03/2025 11:00 AM EST Medication Management [address] [address] Yuri Pierre, PharmD [address] [place] [address] documented as of this encounter Goals Goal Patient Goal Type Associated Problems Recent Progress Patient-Stated? Author Blood Pressure < 140/90 Blood Pressure 122/84(2024 10:22 AM EDT) No PhanisAida Cheng, PharmD Record [...] documented as of this encounter Care Teams Salvage Clerk Relationship Specialty Start Date End Date Sariah Vickers ANP 230 [place] [address] PCP - General Family Medicine 09/23/19 Yuri Pierre, MikeD [address] [place] [address] Pharmacist Internal Medicine 05/05/24 Basilio Hall MD 596 [place] [address] Cardiology 05/17/24 Ron Preciado MD [address] [place] [address] Pulmonary Disease 05/17/24 documented as of this encounter
--- OUTSIDE RECORDS SUMMARY | 2024-10-12 14:03 | XMS_ITS | Encounter Summary ---
Author Organization [employer] Address 75 [facility] 7t [place] [address] Care Team Providers Care Calender Wind Up Helper Name Role Phone Sariah Vickers Primary Care Provider [phone] Yuri Pierre PharmD Unavailable [phone] Basilio Hall MD Unavailable [phone] Rno Preciado MD Unavailable [phone] Reason for Visit * Reason Comments Med Refill Encounter Details Date Type Department Care Team (Late st Contact Info) Description 03/09/2024 Refill [facility] [address] [place] [address] Sariah Vickers ANP 230 [place] [address] Neck pain Social History Tobacco Use Types [...] Description 10/14/2024 1:30 PM EDT Office Visit [address] [address] Sariah Vickers ANP [address] [place] [address] 11/05/2024 2:30 PM EDT Office Visit [address] [address] Hallie Tapia MD [address] [place] [address] 11/12/2024 9:30 AM EDT Clinical Support [address] [address] Azeb Hall, MARTIN [address] [place] [address] 02/03/2025 11:00 AM EST Medication Management [address] [address] Yuri Pierre, PharmD [address] [place] [address] documented as of this encounter Goals Goal Patient Goal Type Associated Problems Recent Progress Patient-Stated? Author Blood Pressure < 140/90 Blood Pressure 122/84(2024 10:22 AM EDT) No Phanis-Dileepl Aida urbina, PharmD [...] documented as of this encounter Care Teams Calender Wind Up Helper Relationship Specialty Start Date End Date Sariah Vickers ANP 230 [place] [address] PCP - General Family Medicine 09/23/19 Yuri Pierre, MikeD 230 [place] [address] Pharmacist Internal Medicine 05/05/24 Basilio Hall MD [address] [place] [address] Cardiology 05/17/24 Ron Preciado MD [address] [place] [address] Pulmonary Disease 05/17/24 documented as of this encounter
--- OUTSIDE RECORDS SUMMARY | 2024-10-12 14:03 | XMS_ITS | Encounter Summary ---
Author Organization [employer] Address 75 [facility] 7t [place] [address] Care Team Providers Care Medical Administrative Technician Name Role Phone Sariah Vickers Primary Care Provider Yuri Pierre PharmD Unavailable [phone] Basilio Hall MD Unavailable [phone] Ron Preciado MD Unavailable [phone] Reason for Visit * Reason Comments Med Refill Encounter Details Date Type Department Care Team (Late st Contact Info) Description 10/03/2023 Refill [facility] 230 [place] [address] Sariah Vickers ANP 230 [place], [place] [phone] Chronic SI joint pain Social History Tobacco [...] Description 10/14/2024 1:30 PM EDT Office Visit [address] [address] Sariah Vickers ANP [address] [place] [address] 11/05/2024 2:30 PM EDT Office Visit [address] [address] Hallie Tapia MD [address] [place] [address] 11/12/2024 9:30 AM EDT Clinical Support [address] [address] Azeb Hall, MARTIN [address] [place] [address] 02/03/2025 11:00 AM EST Medication Management [address] [address] Yuri Pierre, PharmD [address] [place] [address] documented as of this encounter Goals Goal Patient Goal Type Associated Problems Recent Progress Patient-Stated? Author Blood Pressure < 140/90 Blood Pressure 122/84(2024 10:22 AM EDT) No Phanis-Gambl Aida urbina, PharmD Record Your Blood Sugar As Directed General No Phanis-Gambl Veronica urbinasa, PharmD Hemoglobin A1c < 7 Result Component 6.6( 3:08 PM EDT) No Phanis-Dileepl Aida urbina, PharmD documented as of this encounter Visit Diagnoses Diagnosis Chronic SI joint pain Disorders of sacrum documented in this encounter Additional Health Concerns Assessment Noted Time PHQ-9 Depression Total Score: 12 024 2:58 PM EDT documented as of this encounter Care Teams Medical Administrative Technician Relationship Specialty Start Date End Date Sariah Vickers ANP 230 [place] [address] PCP - General Family Medicine 09/23/19 Yuri Pierre, MikeD 230 [place] [address] Pharmacist Internal Medicine 05/05/24 Basilio Hall MD 596 [place] [address] Cardiology 05/17/24 Ron Preciado MD [address] [place] [address] Pulmonary Disease 05/17/24 documented as of this encounter
--- OUTSIDE RECORDS SUMMARY | 2024-10-12 14:03 | XMS_ITS | Encounter Summary ---
Author Organization [employer] Address 75 [facility] 7t [place] [address] Care Team Providers Care Ramp Flight Attendant Name Role Phone Sariah Vickers Primary Care Provider [phone] Yuri Pierre PharmD Unavailable [phone] Basilio Hall MD Unavailable [phone] Ron Preciado MD Unavailable [phone] Reason for Visit * Reason Comments Med Refill Encounter Details Date Type Department Care Team (Late st Contact Info) Description 01/06/2024 Refill [facility] [address] [place] [address] Sariah Vickers ANP 230 [place] [address] Cervicalgia Social History Tobacco Use Types Packs/Day [...] Description 10/14/2024 1:30 PM EDT Office Visit [address] [address] Sariah Vickers ANP [address] [place] [address] 11/05/2024 2:30 PM EDT Office Visit [address] [address] Hallie Tapia MD [address] [place] [address] 11/12/2024 9:30 AM EDT Clinical Support [address] [address] Azeb Hall, MARTIN [address] [place] [address] 02/03/2025 11:00 AM EST Medication Management [address] [address] Yuri Pierre, PharmD [address] [place] [address] documented as of this encounter Goals Goal [...] documented as of this encounter Care Teams Ramp Flight Attendant Relationship Specialty Start Date End Date Sariah Vickers ANP 230 [place] [address] PCP - General Family Medicine 09/23/19 Yuri Pierre, MikeD [address] [place] [address] Pharmacist Internal Medicine 05/05/24 Basilio Hall MD 596 [place] [address] Cardiology 05/17/24 Ron Preciado MD [address] [place] [address] Pulmonary Disease 05/17/24 documented as of this encounter
--- OUTSIDE RECORDS SUMMARY | 2024-10-12 14:03 | XMS_ITS | Encounter Summary ---
Author Organization [employer] Address 75 [facility] 7t [place] [address] Care Team Providers Care Director Of Spa And Guest Experience Name Role Phone Sariah Vickers Primary Care Provider [phone] Yuri Pierre PharmD Unavailable [phone] Basilio Hall MD Unavailable [phone] Ron Preciado MD Unavailable [phone] Reason for Visit * Reason Comments Med Refill Pt wants to know if she can keep taking prednis Encounter Details Date Type Department Care Team (Late st Contact Info) Description 06/26/2024 Refill [facility] [address] [place] [address] Sariah Vickers ANP [address] [place] [address] Cervicalgia Social History Tobacco Use Types Packs/Day [...] 10/14/2024 1:30 PM EDT Office Visit [address] [address] Sariah Vickers ANP [address] [place] [address] 11/05/2024 2:30 PM EDT Office Visit [address] [address] Hallie Tapia MD [address] [place] [address] 11/12/2024 9:30 AM EDT Clinical Support [address] [address] Azeb Hall RN 505 [place] [address] 02/03/2025 11:00 AM EST Medication Management [address] [address] Yuri Pierre, PharmD [address] [place] [address] documented as of this encounter Goals Goal Patient Goal Type Associated Problems Recent Progress Patient-Stated? Author Blood Pressure < 140/90 Blood Pressure 122/84(2024 10:22 AM EDT) No Piers-Gambl e, Aida, PharmD [...] of this encounter Care Teams Director Of Spa And Guest Experience Relationship Specialty Start Date End Date Sariah Vickers ANP 230 [place] [address] PCP - General Family Medicine 09/23/19 Yuri Pierre, MikeD [address] [place] [address] Pharmacist Internal Medicine 05/05/24 Basilio Hall MD 596 [place] [address] Cardiology 05/17/24 Ron Preciado MD [address] [place] [address] Pulmonary Disease 05/17/24 documented as of this encounter
--- OUTSIDE RECORDS SUMMARY | 2024-10-12 14:03 | XMS_ITS | Encounter Summary ---
Author Organization [employer] Address 75 [facility] 7t [place] [address] Care Team Providers Care Brake Lining Finisher Asbestos Name Role Phone Sariah Vickers Primary Care Provider [phone] Yuri Pierre PharmD Unavailable [phone] Basilio Hall MD Unavailable [phone] Ron Preciado MD Unavailable [phone] Reason for Visit * Reason Comments Med Refill Encounter Details Date Type Department Care Team (Late st Contact Info) Description 10/09/2024 Refill [facility]INE 230 [place] [address] Sariah Vickers ANP 230 [place] [address] Severe persistent asthma without complication Social History [...] Recorded Patient Health Questionnaire-2 Score 4 10/01/2023 Internet Access Answer Date Recorded Internet Access [...] Description 10/14/2024 1:30 PM EDT Office Visit [address] [address] Sariah Vickers ANP [address] [place] [address] 11/05/2024 2:30 PM EDT Office Visit [address] [address] Hallie Tapia MD [address] [place] [address] 11/12/2024 9:30 AM EDT Clinical Support [address] [address] Azeb Hall, MARTIN 505 [place] [address] 02/03/2025 11:00 AM EST Medication Management [address] [address] Yuri Pierre, PharmD 230 [place] [address] documented as of this encounter Goals Goal Patient Goal Type Associated Problems Recent Progress Patient-Stated? Author Blood Pressure < 140/90 Blood Pressure 122/84(2024 10:22 AM EDT) No Katelin-Aida Medina, PharmD Record Your Blood Sugar As Directed General No Piers-Gambl eVeronicasa, PharmD Hemoglobin A1c < 7 Result Component 6.6( 3:08 PM EDT) No Piers-Gambl eAida, PharmD documented as of this encounter Visit Diagnoses Diagnosis Severe persistent asthma without complication documented in this encounter Additional Health Concerns Assessment Noted Time PHQ-9 Depression Total Score: 12 024 2:58 PM EDT documented as of this encounter Care Teams Brake Lining Finisher Asbestos Relationship Specialty Start Date End Date Sariah Vickers ANP 230 [place] [address] PCP - General Family Medicine 09/23/19 Yuri Pierre, PharmD 230 [place] [address] Pharmacist Internal Medicine 05/05/24 Basilio Hall MD 596 [place] [address] Cardiology 05/17/24 Ron Preciado MD [address] [place] [address] Pulmonary Disease 05/17/24 documented as of this encounter
--- OUTSIDE RECORDS SUMMARY | 2024-10-12 14:03 | XMS_ITS | Encounter Summary ---
Author Organization [employer] Address 75 [facility] 7t [place] [address] Care Team Providers Care Change House Attendant Name Role Phone Sariah Vickers Primary Care Provider [phone] Yuri Pierre PharmD Unavailable [phone] Basilio Hall MD Unavailable [phone] Ron Preciado MD Unavailable [phone] Reason for Visit * Reason Comments Med Refill Encounter Details Date Type Department Care Team (Late st Contact Info) Description 10/24/2023 Refill [facility]INE 230 [place] [address] Sariah Vickers ANP 230 [place] [address] Neck pain Social History Tobacco Use Types [...] Description 10/14/2024 1:30 PM EDT Office Visit [address] [address] Sariah Vickers, ANP [address] [place] [address] 11/05/2024 2:30 PM EDT Office Visit [address] [address] Hallie Tapia MD [address] [place] [address] 11/12/2024 9:30 AM EDT Clinical Support [address] [address] Azeb Hall, MARTIN [address] [place] [address] 02/03/2025 11:00 AM EST Medication Management [address] [address] Yuri Pierre, PharmD [address] [place] [address] documented as of this encounter Goals Goal Patient Goal Type Associated Problems Recent Progress Patient-Stated? Author Blood Pressure < 140/90 Blood Pressure 122/84(2024 10:22 AM EDT) No Aida Ragland PharmD Record [...] documented as of this encounter Care Teams Change House Attendant Relationship Specialty Start Date End Date Sariah Vickers ANP 230 [place] [address] PCP - General Family Medicine 09/23/19 Yuri Pierre PharmD [address] [place] [address] Pharmacist Internal Medicine 05/05/24 Basilio Hall MD [address] [place] [address] Cardiology 05/17/24 Ron Preciado MD [address] [place] [address] Pulmonary Disease 05/17/24 documented as of this encounter
--- OUTSIDE RECORDS SUMMARY | 2024-10-12 14:03 | XMS_ITS | Encounter Summary ---
Author Organization [employer] Address 75 [facility] 7t [place] [address] Care Team Providers Care Home Service Consultant Name Role Phone Sariah Vickers Primary Care Provider [phone] Yuri Pierre PharmD Unavailable [phone] Basilio Hall MD Unavailable [phone] Ron Preciado MD Unavailable [phone] Reason for Visit * Reason Onset Date Comments Med Refill 09/18/2023 Encounter Details Date Type Department Care Team (Late st Contact Info) Description 09/18/2023 Telephone [facility]INE 230 [place], [place] [address]240 Sariah Vickers ANP 230 [place], [place] [phone] Med Refill Social History Tobacco Use Types [...] refill : Tramadol To be sent to: [facility] - [place], [place] - [address] [place] [address] documented in this encounter Plan of Treatment Upcoming Encounters Date Type Department Care Team ([facility] st Contact Info) Description 10/14/2024 1:30 PM EDT Office Visit [facility] [address] [place] [address] Sariah Vickers ANP 230 [place] [address] 11/05/2024 2:30 PM EDT Office Visit [facility] [address] [place] [address] Hallie Tapia MD [address] [place] [address] 11/12/2024 9:30 AM EDT Clinical Support [facility] [address] [place] [address] Azeb Hall, RN 505 [place] [address] 02/03/2025 11:00 AM EST Medication Management [facility] 230 [place] [address] Yuri Pierre, PharmD 230 [place], [place] documented as of this encounter Goals [...] as of this encounter Care Teams Home Service Consultant Relationship Specialty Start Date End Date Sariah Vickers ANP [address] [place] [address] PCP - General Family Medicine 09/23/19 Yuri Pierre, PharmD [address] [place] [address] Pharmacist Internal Medicine 05/05/24 Basilio Hall MD [address] [place] [place] [address] Cardiology 05/17/24 Ron Preciado MD [address] [place] [address] Pulmonary Disease 05/17/24 documented as of this encounter
--- OUTSIDE RECORDS SUMMARY | 2024-10-12 14:03 | XMS_ITS | Encounter Summary ---
Author Organization [employer] Address 75 [facility] 7t [place] [address] Care Team Providers Care Construction Carpenter Name Role Phone Sariah Vickers Primary Care Provider [phone] Yuri Pierre PharmD Unavailable [phone] Basilio Hall MD Unavailable [phone] Ron Preciado MD Unavailable [phone] Reason for Visit * Reason Comments Med Refill Encounter Details Date Type Department Care Team (Late st Contact Info) Description 11/24/2023 Refill [facility]INE 230 [place] [address] Sariah Vickers ANP 230 [place] [address] Vertigo Social History Tobacco Use Types Packs/Day [...] Description 10/14/2024 1:30 PM EDT Office Visit [address] [address] Sariah Vickers, ANP [address] [place] [address] 11/05/2024 2:30 PM EDT Office Visit [address] [address] Hallie Tapia MD [address] [place] [address] 11/12/2024 9:30 AM EDT Clinical Support [address] [address] Azeb Hall, MARTIN [address] [place] [address] 02/03/2025 11:00 AM EST Medication Management [address] [address] Yuri Pierre, PharmD [address] [place] [address] documented as of this encounter Goals Goal Patient Goal Type Associated Problems Recent Progress Patient-Stated? Author Blood Pressure < 140/90 Blood Pressure 122/84(2024 10:22 AM EDT) No Aida Ragland, PharmD Record [...] as of this encounter Care Teams Construction Carpenter Relationship Specialty Start Date End Date Sariah Vickers ANP 230 [place] [address] PCP - General Family Medicine 09/23/19 Yuri Pierre, MikeD [address] [place] [address] Pharmacist Internal Medicine 05/05/24 Basilio Hall MD [address] [place] [address] Cardiology 05/17/24 Ron Preciado MD [address] [place] [address] Pulmonary Disease 05/17/24 documented as of this encounter
--- OUTSIDE RECORDS SUMMARY | 2024-10-12 14:03 | XMS_ITS | Encounter Summary ---
Author Organization [employer] Address 75 [facility] 7t [place] [address] Care Team Providers Care Reconditioning Associate Name Role Phone Sariah Vickers Primary Care Provider [phone] Yuri Pierre PharmD Unavailable [phone] Basilio Hlal MD Unavailable [phone] Ron Preciado MD Unavailable [phone] Reason for Visit * Reason Comments Med Refill Encounter Details Date Type Department Care Team (Late st Contact Info) Description 11/26/2023 Refill [facility] MED[facility]INE 230 [place] [address] Sariah Vickers ANP 230 [place] [address] Vertigo Social History Tobacco Use Types Packs/Day [...] Description 10/14/2024 1:30 PM EDT Office Visit [address] [address] Sariah Vickers, ANP [address] [place] [address] 11/05/2024 2:30 PM EDT Office Visit [address] [address] Hallie Tapia MD [address] [place] [address] 11/12/2024 9:30 AM EDT Clinical Support [address] [address] Azeb Hall, MARTIN [address] [place] [address] 02/03/2025 11:00 AM EST Medication Management [address] [address] Yuri Pierre, PharmD [address] [place] [address] documented as of this encounter Goals Goal [...] documented as of this encounter Care Teams Reconditioning Associate Relationship Specialty Start Date End Date Sariah Vickers ANP 230 [place] [address] PCP - General Family Medicine 09/23/19 Yuri Pierre, MikeD [address] [place] [address] Pharmacist Internal Medicine 05/05/24 Basilio Hall MD [address] [place] [address] Cardiology 05/17/24 Ron Preciado MD [address] [place] [address] Pulmonary Disease 05/17/24 documented as of this encounter
--- OUTSIDE RECORDS SUMMARY | 2024-10-12 14:03 | XMS_ITS | Encounter Summary ---
Author Organization [employer] Address 75 [facility] 7t [place] [address] Care Team Providers Care Ic Design Manager Name Role Phone Sariah Vickers Primary Care Provider [phone] Yuri Pierre PharmD Unavailable [phone] Basilio Hall MD Unavailable [phone] Ron Preciado MD Unavailable [phone] Reason for Visit * Reason Onset Date Comments Durable Medical Equipment 03/15/2022 Encounter Details Date Type Department Care Team (Late st Contact Info) Description 03/15/2022 Telephone [facility] MEDICINE 230 [place] [address] Sariah Vickers ANP 230 [place] [address] Durable Medical Equipment Social History Tobacco Use [...] Description 10/14/2024 1:30 PM EDT Office Visit [address] [address] Sariah Vickers ANP [address] [place] [address] 11/05/2024 2:30 PM EDT Office Visit [address] [address] Hallie Tapia MD [address] [place] [address] 11/12/2024 9:30 AM EDT Clinical Support [address] [address] Azeb Hall RN [address] [place] [address] 02/03/2025 11:00 AM EST Medication Management [address] [address] Yuri Pierre, MikeD [address] [place] [address] documented as of this encounter Visit Diagnoses Not on filedocumented in this encounter Care Teams Ic Design Manager Relationship Specialty Start Date End Date Sariah Vickers ANP [address] [place] [address] PCP - General Family Medicine 09/23/19 Yuri Pierre, MikeD 230 [place] [address] Pharmacist Internal Medicine 05/05/24 Basilio Hall MD 596 [place] [address] Cardiology 05/17/24 Ron Preciado MD [address] [place] [address] Pulmonary Disease 05/17/24 documented as of this encounter
--- OUTSIDE RECORDS SUMMARY | 2024-10-12 14:03 | XMS_ITS | Encounter Summary ---
Author Organization [email or web address] Address 75 [facility] 7t [place] [address] Care Team Providers Care Biological Inspector Name Role Phone Sariah Vickers Primary Care Provider [phone] Yuri Pierre PharmD Unavailable [phone] Basilio Hall MD Unavailable [phone] Ron Preciado MD Unavailable [phone] Reason for Visit * Reason Onset Date Comments Med Refill 02/04/2024 Encounter Details Date Type Department Care Team (Late st Contact Info) Description 02/04/2024 Telephone [facility] MEDICINE 230 [place] [address] Sariah Vickers ANP 230 [place], [place] [phone] Med Refill Social History Tobacco Use Types [...] sent to: [facility] - [place], [place] - [address] [place] [address] documented in this encounter Plan of Treatment Upcoming Encounters Date Type Department Care Team ([facility] st Contact Info) Description 10/14/2024 1:30 PM EDT Office Visit [facility] MED[facility]INE [address] [place] [address] Sariah Vickers ANP [address] [place] [address] 11/05/2024 2:30 PM EDT Office Visit [address] [address] Hallie Tapia MD [address] [place] [address] 11/12/2024 9:30 AM EDT Clinical Support [facility] MED[facility]INE [address] [place] [address], [place] [address] Azeb Hall, RN 505 [place] [address] 02/03/2025 11:00 AM EST Medication Management [facility] 230 [place] [address] Yuri Pierre, PharmD 230 [place] [address] documented as of this encounter Goals Goal [...] documented as of this encounter Care Teams Biological Inspector Relationship Specialty Start Date End Date Sariah Vickers ANP 230 [place] [address] PCP - General Family Medicine 09/23/19 Yuri Pierre, PharmD 230 [place] [address] Pharmacist Internal Medicine 05/05/24 Basilio Hall MD 596 [place] [address] Cardiology 05/17/24 Ron Preciado MD [address] [place] [address] Pulmonary Disease 05/17/24 documented as of this encounter
--- OUTSIDE RECORDS SUMMARY | 2024-10-12 14:03 | XMS_ITS | Encounter Summary ---
Author Organization [employer] Address 75 [facility] 7t [place] [address] Care Team Providers Care Sort Line Worker Name Role Phone Sariah Vickers Primary Care Provider Yuri Pierre PharmD Unavailable [phone] Basilio Hall MD Unavailable [phone] Ron Preciado MD Unavailable [phone] Reason for Visit * Reason Comments Med Refill Encounter Details Date Type Department Care Team (Late st Contact Info) Description 01/06/2024 Refill [facility] [address] [place] [address] Sariah Vickers ANP 230 [place] [address] Cervicalgia Social History Tobacco Use Types Packs/Day [...] Description 10/14/2024 1:30 PM EDT Office Visit [address] [address] Sariah Vickers ANP [address] [place] [address] 11/05/2024 2:30 PM EDT Office Visit [address] [address] Hallie Tapia MD [address] [place] [address] 11/12/2024 9:30 AM EDT Clinical Support [address] [address] Azeb Hall, MARTIN [address] [place] [address] 02/03/2025 11:00 AM EST Medication Management [address] [address] Yuri Pierre, PharmD [address] [place] [address] documented as of this encounter Goals Goal [...] documented as of this encounter Care Teams Sort Line Worker Relationship Specialty Start Date End Date Sariah Vickers ANP 230 [place] [address] PCP - General Family Medicine 09/23/19 Yuri Pierre, MikeD [address] [place] [address] Pharmacist Internal Medicine 05/05/24 Basilio Hall MD 596 [place] [address] Cardiology 05/17/24 Ron Preciado MD [address] [place] [address] Pulmonary Disease 05/17/24 documented as of this encounter
--- OUTSIDE RECORDS SUMMARY | 2024-10-12 14:03 | XMS_ITS | Encounter Summary ---
Author Organization [employer] Address 75 [facility] 7t [place] [address] Care Team Providers Care Patient Resource Coordinator Name Role Phone Sariah Vickers Primary Care Provider [phone] Yuri Pierre PharmD Unavailable [phone] Basilio Hall MD Unavailable [phone] Ron Preciado MD Unavailable [phone] Reason for Visit * Reason Comments Med Refill Encounter Details Date Type Department Care Team (Late st Contact Info) Description 03/26/2022 Refill [facility] MEDICINE 230 [place] [address] Sariah Vickers ANP 230 [place] [address] Social History Tobacco Use Types Packs/Day Years [...] 10/14/2024 1:30 PM EDT Office Visit [address] [address] Sariah Vickers ANP [address] [place] [address] 11/05/2024 2:30 PM EDT Office Visit [address] [address] Hallie Tapia MD [address] [place] [address] 11/12/2024 9:30 AM EDT Clinical Support [address] [address] Azeb Hall RN 505 [place] [address] 02/03/2025 11:00 AM EST Medication Management [address] [address] Yuri Pierre, Dileep [address] [place] [address] documented as of this encounter Visit Diagnoses Not on filedocumented in this encounter Care Teams Patient Resource Coordinator Relationship Specialty Start Date End Date Sariah Vickers ANP [address] [place] [address] PCP - General Family Medicine 09/23/19 Yuri Pierre, PharmD [address] [place] [address] Pharmacist Internal Medicine 05/05/24 Basilio Hall MD [address] [place] [address] Cardiology 05/17/24 Ron Preciado MD [address] [place] [address] Pulmonary Disease 05/17/24 documented as of this encounter
--- OUTSIDE RECORDS SUMMARY | 2024-10-12 14:03 | XMS_ITS | Encounter Summary ---
Author Organization [employer] Address 75 [facility] 7t [place] [address] Care Team Providers Care Administrative Assistant Front Desk Name Role Phone Sariah Vickers Primary Care Provider [phone] Yuri Pierre PharmD Unavailable [phone] Basilio Hall MD Unavailable [phone] Ron Preciado MD Unavailable [phone] Reason for Visit * Reason Comments Med Refill Encounter Details Date Type Department Care Team (Late st Contact Info) Description 10/17/2023 Refill [facility] MEDICINE 230 [place] [address] Sariah Vickers ANP 230 [place] [address] Neck pain Social History Tobacco Use Types [...] 10/14/2024 1:30 PM EDT Office Visit [address] [address] Sariah Vickers, ANP [address] [place] [address] 11/05/2024 2:30 PM EDT Office Visit [address] [address] Hallie Tapia MD [address] [place] [address] 11/12/2024 9:30 AM EDT Clinical Support [address] [address] Azeb Hall, MARTIN [address] [place] [address] 02/03/2025 11:00 AM EST Medication Management [address] [address] Yuri Pierre, PharmD [address] [place] [address] documented as of this encounter Goals Goal [...] documented as of this encounter Care Teams Administrative Assistant Front Desk Relationship Specialty Start Date End Date Sariah Vickers ANP 230 [place] [address] PCP - General Family Medicine 09/23/19 Yuri Pierre PharmD [address] [place] [address] Pharmacist Internal Medicine 05/05/24 Basilio Hall MD [address] [place] [address] Cardiology 05/17/24 Ron Preciado MD [address] [place] [address] Pulmonary Disease 05/17/24 documented as of this encounter
--- OUTSIDE RECORDS SUMMARY | 2024-10-12 14:03 | XMS_ITS | Encounter Summary ---
Author Organization [employer] Address 75 [facility] 7t [place] [address] Care Team Providers Care Exhibition Designer Name Role Phone Sariah Vickers Primary Care Provider Yuri Pierre PharmD Unavailable [phone] Basilio Hall MD Unavailable [phone] Ron Precidao MD Unavailable [phone] Encounter Details Date Type Department Care Team (Late st Contact Info) Description 02/05/2022 Abstract [facility] MEDICINE 230 [place] [address] Sariah Vickers ANP 230 [place] [address] Social History Tobacco Use Types Packs/Day Years [...] 10/14/2024 1:30 PM EDT Office Visit [address] [address] Sariah Vickers ANP [address] [place] [address] 11/05/2024 2:30 PM EDT Office Visit [address] [address] Hallie Tapia MD [address] [place] [address] 11/12/2024 9:30 AM EDT Clinical Support [address] [address] Azeb Hall, MARTIN 505 [place] [address] 02/03/2025 11:00 AM EST Medication Management [address] [address] Yuri Pierre, Dileep [address] [place] [address] documented as of this encounter Visit Diagnoses Not on filedocumented in this encounter Care Teams Exhibition Designer Relationship Specialty Start Date End Date Sariah Vickers ANP [address] [place] [address] PCP - General Family Medicine 09/23/19 Yuri Pierre, PharmD 230 [place] [address] Pharmacist Internal Medicine 05/05/24 Basilio Hall MD 596 [place] [address] Cardiology 05/17/24 Ron Preciado MD [address] [place] [address] Pulmonary Disease 05/17/24 documented as of this encounter
--- OUTSIDE RECORDS SUMMARY | 2024-10-12 14:03 | XMS_ITS | Encounter Summary ---
Author Organization [employer] Address 75 [facility] 7t [place] [address] Care Team Providers Care Reading Instructor Name Role Phone Sariah Vickers Primary Care Provider [phone] Yuri Pierre PharmD Unavailable [phone] Basilio Hall MD Unavailable [phone] Ron Preciado MD Unavailable [phone] Reason for Visit * Reason Comments Med Refill Encounter Details Date Type Department Care Team (Late st Contact Info) Description 06/17/2024 Refill [facility] 230 [place] [address] Sariah Vickers ANP 230 [place], [place] [phone] Neck pain Social History Tobacco Use Types [...] 10/14/2024 1:30 PM EDT Office Visit [address] [address] Sariah Vickers ANP [address] [place] [address] 11/05/2024 2:30 PM EDT Office Visit [address] [address] Hallie Tapia MD [address] [place] [address] 11/12/2024 9:30 AM EDT Clinical Support [address] [address] Azeb Hall, MARTIN [address] [place] [address] 02/03/2025 11:00 AM EST Medication Management [address] [address] Yuri Pierre, PharmD [address] [place] [address] documented as of this encounter Goals Goal [...] documented as of this encounter Care Teams Reading Instructor Relationship Specialty Start Date End Date Sariah Vickers ANP 230 [place] [address] PCP - General Family Medicine 09/23/19 Yuri Pierre, MikeD 230 [place] [address] Pharmacist Internal Medicine 05/05/24 Basilio Hall MD [address] [place] [address] Cardiology 05/17/24 Ron Preciado MD [address] [place] [address] Pulmonary Disease 05/17/24 documented as of this encounter
--- OUTSIDE RECORDS SUMMARY | 2024-10-12 14:03 | XMS_ITS | Encounter Summary ---
Author Organization [employer] Address 75 [facility] 7t [place] [address] Care Team Providers Care Greenhouse Laborer Name Role Phone Sariah Vickers Primary Care Provider [phone] Yuri Pierre PharmD Unavailable [phone] Basilio Hall MD Unavailable [phone] Ron Preciado MD Unavailable [phone] Reason for Visit * Reason Comments Med Refill Encounter Details Date Type Department Care Team (Late st Contact Info) Description 03/03/2022 Refill [facility] 230 [place] [address] Sariah Vickers ANP 230 [place] [address] Social History Tobacco Use Types Packs/Day Years [...] Description 10/14/2024 1:30 PM EDT Office Visit [address] [address] Sariah Vickers ANP [address] [place] [address] 11/05/2024 2:30 PM EDT Office Visit [address] [address] Hallie Tapia MD [address] [place] [address] 11/12/2024 9:30 AM EDT Clinical Support [address] [address] Azeb Hall RN 505 [place] [address] 02/03/2025 11:00 AM EST Medication Management [address] [address] Yuri Pierre PharmD [address] [place] [address] documented as of this encounter Visit Diagnoses Not on filedocumented in this encounter Care Teams Greenhouse Laborer Relationship Specialty Start Date End Date Sariah Vickers ANP [address] [place] [address] PCP - General Family Medicine 09/23/19 Yuri Pierre, PharmD [address] [place] [address] Pharmacist Internal Medicine 05/05/24 Basilio Hall MD 596 [place] [address] Cardiology 05/17/24 Ron Preciado MD [address] [place] [address] Pulmonary Disease 05/17/24 documented as of this encounter
--- OUTSIDE RECORDS SUMMARY | 2024-10-12 14:03 | XMS_ITS | Continuity of Care Document ---
Author Name [employer], Medical Address [address] [place] [address] Organization Unknown Address [address] [place] [address] Medications No known medications Problems No known problems
--- OUTSIDE RECORDS SUMMARY | 2024-10-12 14:03 | XMS_ITS | Encounter Summary ---
Author Organization [employer] Address 75 [facility] 7t [place] [address] Care Team Providers Care Chemistry Technician Name Role Phone Sariah Vickers Primary Care Provider [phone] Yuri Pierre PharmD Unavailable [phone] Basilio Hall MD Unavailable [phone] Ron Preciado MD Unavailable [phone] Reason for Visit * Reason Comments Med Refill Encounter Details Date Type Department Care Team (Late st Contact Info) Description 12/17/2023 Refill [facility] MEDICINE 230 [place] [address] Sariah Vickers ANP 230 [place] [address] Chronic SI joint pain Social History Tobacco [...] Description 10/14/2024 1:30 PM EDT Office Visit [address] [address] Sariah Vickers ANP [address] [place] [address] 11/05/2024 2:30 PM EDT Office Visit [address] [address] Hallie Tapia MD [address] [place] [address] 11/12/2024 9:30 AM EDT Clinical Support [address] [address] Azeb Hall, MARTIN [address] [place] [address] 02/03/2025 11:00 AM EST Medication Management [address] [address] Yuri Pierre, PharmD [address] [place] [address] documented as of this encounter Goals Goal [...] documented as of this encounter Care Teams Chemistry Technician Relationship Specialty Start Date End Date Sariah Vickers ANP 230 [place] [address] PCP - General Family Medicine 09/23/19 Yuri Pierre, MikeD 230 [place] [address] Pharmacist Internal Medicine 05/05/24 Basilio Hall MD [address] [place] [address] Cardiology 05/17/24 Ron Preciado MD [address] [place] [address] Pulmonary Disease 05/17/24 documented as of this encounter
--- OUTSIDE RECORDS SUMMARY | 2024-10-12 14:03 | XMS_ITS | Encounter Summary ---
Author Organization [employer] Address 75 [facility] 7t [place] [address] Care Team Providers Care Production Support Engineer Name Role Phone Sariah Vickers Primary Care Provider [phone] Yuri Pierre PharmD Unavailable [phone] Basilio Hall MD Unavailable [phone] Ron Preciado MD Unavailable [phone] Reason for Visit * Reason Comments Med Refill Encounter Details Date Type Department Care Team (Late st Contact Info) Description 10/03/2023 Refill [facility] 230 [place] [address] Sariah Vickers ANP 230 [place], [place] [phone] Chronic SI joint pain Social History Tobacco [...] Description 10/14/2024 1:30 PM EDT Office Visit [address] [address] Sariah Vickers ANP [address] [place] [address] 11/05/2024 2:30 PM EDT Office Visit [address] [address] Hallie Tapia MD [address] [place] [address] 11/12/2024 9:30 AM EDT Clinical Support [address] [address] Azeb Hall, MARTIN [address] [place] [address] 02/03/2025 11:00 AM EST Medication Management [address] [address] Yuri Pierre, PharmD [address] [place] [address] documented as of this encounter Goals Goal [...] documented as of this encounter Care Teams Production Support Engineer Relationship Specialty Start Date End Date Sariah Vickers ANP 230 [place] [address] PCP - General Family Medicine 09/23/19 Yuri Pierre, MikeD 230 [place] [address] Pharmacist Internal Medicine 05/05/24 Basliio Hall MD 596 [place] [address] Cardiology 05/17/24 Ron Preciado MD [address] [place] [address] Pulmonary Disease 05/17/24 documented as of this encounter
--- OUTSIDE RECORDS SUMMARY | 2024-10-12 14:03 | XMS_ITS | Encounter Summary ---
Author Organization [employer] Address 75 [facility] 7t [place] [address] Care Team Providers Care Sap Solution Manager Consultant Name Role Phone Sariah Vickers Primary Care Provider [phone] Yuri Pierre PharmD Unavailable [phone] Basilio Hall MD Unavailable [phone] Ron Preciado MD Unavailable [phone] Reason for Visit * Reason Onset Date Comments Med Refill 01/09/2024 Encounter Details Date Type Department Care Team (Late st Contact Info) Description 01/09/2024 Telephone [facility] MED[facility]INE 230 [place] [address] Sariah Vickers ANP 230 [place], [place] [phone] Med Refill Social History Tobacco Use Types [...] Description 10/14/2024 1:30 PM EDT Office Visit [address] [address] Sariah Vickers, ANP [address] [place] [address] 11/05/2024 2:30 PM EDT Office Visit [address] [address] Hallie Tapia MD [address] [place] [address] 11/12/2024 9:30 AM EDT Clinical Support [address] [address] Azeb Hall, MARTIN [address] [place] [address] 02/03/2025 11:00 AM EST Medication Management [address] [address] Yuri Pierre, PharmD [address] [place] [address] documented as of this encounter Goals Goal [...] documented as of this encounter Care Teams Sap Solution Manager Consultant Relationship Specialty Start Date End Date Sariah Vickers ANP 230 [place] [address] PCP - General Family Medicine 09/23/19 Yuri Pierre, MikeD [address] [place] [address] Pharmacist Internal Medicine 05/05/24 Basilio Hall MD 596 [place] [address] Cardiology 05/17/24 Ron Preciado MD [address] [place] [address] Pulmonary Disease 05/17/24 documented as of this encounter
--- OUTSIDE RECORDS SUMMARY | 2024-10-12 14:03 | XMS_ITS | Encounter Summary ---
Author Organization [employer] Address 75 [facility] 7t [place] [address] Care Team Providers Care Rejector Name Role Phone Sariah Vickers Primary Care Provider [phone] Yuri Pierre PharmD Unavailable [phone] Basilio Hall MD Unavailable [phone] Ron Preciado MD Unavailable [phone] Reason for Visit * Reason Comments Med Refill Encounter Details Date Type Department Care Team (Late st Contact Info) Description 11/14/2023 Refill [facility] 230 [place] [address] Sariah Vickers ANP 230 [place] [address] Neck pain Social History Tobacco Use Types [...] Description 10/14/2024 1:30 PM EDT Office Visit [address] [address] Sariah Vickers, ANP [address] [place] [address] 11/05/2024 2:30 PM EDT Office Visit [address] [address] Hallie Tapia MD [address] [place] [address] 11/12/2024 9:30 AM EDT Clinical Support [address] [address] Azeb Hall, MARTIN [address] [place] [address] 02/03/2025 11:00 AM EST Medication Management [address] [address] Yuri Pierre, PharmD [address] [place] [address] documented as of this encounter Goals Goal [...] documented as of this encounter Care Teams Rejector Relationship Specialty Start Date End Date Sariah Vickers ANP 230 [place] [address] PCP - General Family Medicine 09/23/19 Yuri Pierre PharmD [address] [place] [address] Pharmacist Internal Medicine 05/05/24 Basilio Hall MD [address] [place] [address] Cardiology 05/17/24 Ron Preciado MD [address] [place] [address] Pulmonary Disease 05/17/24 documented as of this encounter
--- OUTSIDE RECORDS SUMMARY | 2024-10-12 14:03 | XMS_ITS | Encounter Summary ---
Author Organization [employer] Address 75 [facility] 7t [place] [address] Care Team Providers Care Curtain Hemmer Automatic Name Role Phone Sariah Vickers Primary Care Provider [phone] Yuri Pierre PharmD Unavailable [phone] Basilio Hall MD Unavailable [phone] Ron Preciado MD Unavailable [phone] Reason for Visit * Reason Comments Med Refill Patient walked in [facility] pharmacy hasn't finished her Medbox due to missing refill for medication Gabapetin . Encounter Details Date Type Department Care Team (Late st Contact Info) Description 10/03/2023 Refill [facility] 230 [place], [place] [phone] Sariah Vickers ANP 230 [place], [place] [phone] Chronic SI joint pain Social History Tobacco [...] the past 12 months, has t he [employer], gas, oil or water tomoguides threatened to shut off services in your [...] Description 10/14/2024 1:30 PM EDT Office Visit [facility] [address] [place] [address] Sariah Vickers ANP [address] [place] [address] 11/05/2024 2:30 PM EDT Office Visit [facility] [address] [place] [address] Hallie Tapia MD [address] [place] [address] 11/12/2024 9:30 AM EDT Clinical Support [facility] [address] [place] [address] Azeb Hall, RN 505 [place] [address] 02/03/2025 11:00 AM EST Medication Management [facility] [address] [place] [address] Yuri Pierre, Dileep 230 [place], [place] documented as of this encounter Goals [...] documented as of this encounter Care Teams Curtain Hemmer Automatic Relationship Specialty Start Date End Date Sariah Vickers ANP [address] [place] [address] PCP - General Family Medicine 09/23/19 Yuri Pierre, PharmD [address] [place] [address] Pharmacist Internal Medicine 05/05/24 Basilio Hall MD [address] [place] [address] Cardiology 05/17/24 Ron Preciado MD [address] [place] [address] Pulmonary Disease 05/17/24 documented as of this encounter
--- OUTSIDE RECORDS SUMMARY | 2024-10-12 14:04 | XMS_ITS | Encounter Summary ---
Author Organization [employer] Address 75 [facility] 7t [place] [address] Care Team Providers Care Foreign Clerk Name Role Phone Anthony Ruiz Primary Care Provider [phone] Yuri Pierre PharmD Unavailable [phone] Basilio Hall MD Unavailable [phone] Ron Preciado MD Unavailable [phone] Encounter Details Date Type Department Care Team (Late st Contact Info) Description 09/28/2024 Orders Only [facility] MED[facility]INE 230 [place] [address] Anthony Ruiz ANP 230 [place] [address] Social History Tobacco Use Types Packs/Day Years [...] Description 10/14/2024 1:30 PM EDT Office Visit [address] [address] Anthony Ruiz ANP [address] [place] [address] 11/05/2024 2:30 PM EDT Office Visit [address] [address] Hallie Tapia MD [address] [place] [address] 11/12/2024 9:30 AM EDT Clinical Support [address] [address] Azeb Hall RN 505 [place] [address] 02/03/2025 11:00 AM EST Medication Management [address] [address] Yuri Pierre, PharmD [address] [place] [address] documented as of this encounter Goals Goal Patient Goal Type Associated Problems Recent Progress Patient-Stated? Author Blood Pressure < 140/90 Blood Pressure 122/84(2024 10:22 AM EDT) No Phanis-Aida Medina, PharmD Record Your Blood Sugar As Directed General No Phanis-Gambl Veronica urbinasa, PharmD Hemoglobin A1c < 7 Result Component 6.6( 3:08 PM EDT) No Phanis-Gambl eAida, PharmD documented as of this encounter Procedures Procedure Name Priority Date/Time Associated Diagnosis Comments LDCT LUNG SCREENING Routine 10/09/2024 1 :18 PM EDT documented in this encounter Results * CT Lung Screening Low dose (10/09/2024 1:18 PM EDT) Anatomical Region Laterality Modality Lung Computed Tomogra phy 10/09/2024 1:18 PM EDT Narrative 10/09/2024 1:20 PM EDT [address] [address] [address] Scan Report Signed Patient: Nuvia Fay MR #: [id number] : [id number] Acct:[id number] Age/Sex: 64 / F ADM Date: 10/08/24 Loc: HO.CT Attending Dr: Ron Preciado MD Ordering Physician: Ron Preciado MD Date of Service: 10/08/24 Procedure(s): CT lung screening Accession Number(s): [id number] cc: Ron Preciado MD; ANTHONY RUIZ NP Report Number: [id number]: Total DLP = 64.00 mGy-cm CLINICAL HISTORY: F17.200 - Nicotine dependence, unspecified, uncomplicated Examination CT lung cancer screening History Screening examination performed for pulmonary nodules Technique Axial CT images of the chest using low-dose technique. Effective radiation dose total: 64.2 mGy-cm, CTDIvol 1.8 mGy. Referring provider counseled the patient on shared decision-making for LDCT screening. Additional counseling was provided on smoking cessation. Comparison: None available Findings: Lungs: Solid pulmonary nodules measure up to 5 mm (series 4, image 68, lingula). Calcified granuloma Mild emphysema. Mild amount of subsegmental atelectasis versus linear scarring which is most prominent at the lung bases Coronary artery calcifications: None Other: Dilated ascending aorta, measuring up to 4.2 cm and descending aorta, measuring up to 3.2 cm Limited upper abdomen: Abnormal contour of the kidneys could be secondary to scarring/atrophy. Fluid attenuation lesion in the upper pole of the left kidney measuring 3.3 cm Impression: LungRADS 2 - Benign Appearance: Continue annual screening with low dose Chest CT in 12 months. ##L2# Category 1: Normal; continue annual screening Category 2: Benign appearance or behavior, continue annual screening Category 3: Probably benign, [address] recommended Category 4A: Suspicious, [address] recommended; may consider PET/CT Category 4B: Suspicious, Additional diagnostics and/or tissue sampling recommended Category 4X: Suspicious, Additional diagnostics and/or tissue sampling recommended Category 0: Recalls (incomplete screen due to Incomplete coverage, Noise, Respiratory motion, Expiration, Obscured by acute abnormality) This document has been electronically signed by: Ligia Argueta MD on 10/09/2024 13:18:52 Dictated By: Ligia Myrick MD Signed By: <Electronically signed by Ligia Myrick MD in OV> 10/09/24 1319 DD/ 1318 TD/TT: 10/09/24 1318 [employer] Dealer: Procedure Note Donotuseinterpreter, Image - 10/09/[address] [address] [address] Scan Report Signed Patient: Nuvia Fay EMR #: [id number] : 1Acct:[id number] Age/Sex: 64 / FADM Date: 10/08/24 Loc: HO.CT Attending Dr: Ron Preciado MD Ordering Physician: Ron Preciado MD Date of Service: 10/08/24 Procedure(s): CT lung screening Accession Number(s): [id number] cc: Ron Preciado MD; ANTHONY RUIZ NP Report Number: [id number]: Total DLP = 64.00 mGy-cm CLINICAL HISTORY: F17.200 - Nicotine dependence, unspecified,uncomplicated Examination CT lung cancer screening History Screening examination performed for pulmonary nodules Technique Axial CT images of the chest using low-dose technique. Effective radiation dose total: 64.2 mGy-cm, CTDIvol 1.8 mGy. Referring provider counseled the patient on shared decision-making for LDCT screening. Additional counseling was provided on smoking cessation. Comparison: None available Findings: Lungs: Solid pulmonary nodules measure up to 5 mm (series 4, image 68, lingula). Calcified granuloma Mild emphysema. Mild amount of subsegmental atelectasis versus linear scarring which is most prominent at the lung bases Coronary artery calcifications: None Other: Dilated ascending aorta, measuring up to 4.2 cm and descending aorta, measuring up to 3.2 cm Limited upper abdomen: Abnormal contour of the kidneys could be secondary to scarring/atrophy. Fluid attenuation lesion in the upper pole of the left kidney measuring 3.3 cm Impression: LungRADS 2 - Benign Appearance: Continue annual screening with low dose Chest CT in 12 months. ##L2# Category 1: Normal; continue annual screening Category 2: Benign appearance or behavior, continue annual screening Category 3: Probably benign, [address] recommended Category 4A: Suspicious, [address] recommended; may consider PET/CT Category 4B: Suspicious, Additional diagnostics and/or tissue sampling recommended Category 4X: Suspicious, Additional diagnostics and/or tissue sampling recommended Category 0: Recalls (incomplete screen due to Incomplete coverage, Noise, Respiratory motion, Expiration, Obscured by acute abnormality) This document has been electronically signed by: Ligia Argueta MD on 10/09/2024 13:18:52 Dictated By: Ligia Myrick MD Signed By: <Electronically signed by Ligia Myrick MD in OV> 10/09/24 1319 DD/ 1318 TD/TT: 10/09/24 1318 [employer] Dealer: [facility] External Provider IMG CT PROCEDURES Edited Result - Final documented in this encounter Visit Diagnoses Not on filedocumented in this encounter Additional Health Concerns Assessment Noted Time PHQ-9 Depression Total Score: 12 024 2:58 PM EDT documented as of this encounter Care Teams Foreign Clerk Relationship Specialty Start Date End Date Anthony Ruiz ANP 230 [place] [address] PCP - General Family Medicine 09/23/19 Yuri Pierre, MikeD 230 [place] [address] Pharmacist Internal Medicine 05/05/24 Basilio Hall MD [address] [place] [address] Cardiology 05/17/24 Ron Preciado MD [address] [place] [address] Pulmonary Disease 05/17/24 documented as of this encounter
--- OUTSIDE RECORDS SUMMARY | 2024-10-12 14:04 | XMS_ITS | Clinical Summary ---
Author Organization [employer] Address [address] [place] [address] Care Team Providers Care Firer Boiler Name Role Phone Anthony Ruiz KAYLEE Primary Care Provider [phone] Yuri Pierre PharmD Unavailable [phone] Basilio Hall MD Unavailable [phone] Ron Preciado MD Unavailable [phone] Allergies Active Allergy Reactions Criticality Noted Date Comments Aspirin Unknown 02/05/2010 Other reaction(s): face swelled Azithromycin Itching 04/07/2018 Cortisone 03/24/2019 Doxycycline Unknown 11/16/2021 Fish Allergy Angioedema 04/07/2018 Fish-Derived Products Swelling High 12/28/2023 Naproxen Unknown High 11/04/2019 Onion Low 12/28/2023 Other Reaction(s): RED FACE Simvastatin Unknown 12/28/2023 Vancomycin Rash Low 03/20/2024 Vancomycin flushing syndrome at ED 03/2024 Medications * This document contains information received from the source organization and may not represent a complete record from that organization. clonazePAM (KlonoPIN) 1 MG tablet Active docusate sodium (Colace) 100 MG capsule Take 1 capsule by mouth every 12 (twelve) hours. Active omeprazole (PriLOSEC) [address] capsule Take 1 capsule by mouth every 12 (twelve) hours. Active plecanatide (Trulance) tablet tablet Take 1 tablet by mouth at bed time. 019 Active risperiDONE (RisperDAL) 0.5 MG tablet Take 1 tablet by mouth in the morning and 1 tablet in the evening. Active tiotropium (Spiriva HandiHaler) [address] 1 capsule into inhaler and inhale at bed time. Active zolpidem (Ambien) 10 MG tablet Take 1 tablet by mouth in the morning. Active Lactobacillus-In ulin ([facility]) capsule 023 Active Xolair 150 MG/ML injection Reconstitute as directed and inject subcutaneously once weekly (administered in office) 023 Active pyridoxine (Vitamin B-6) 100 MG tablet 023 Active naloxone (Narcan) 4 mg/0.1 mL [...] 023 Active Combivent Respimat 20-100 MCG/ACT inhaler 023 Active Misc. Devices (Pulse Oximeter For Finger) misc 1 each 2 times daily. 1 each 023 Active glucose 4 g chewable tabletIndication s:Type 2 diabetes mellitus with hyperlipidemia (CMS/HCC) (CMS/HCC) CHEW 4 TABLETS BY MOUTH NEEDED LOW FOR BLOOD SUGAR 50 tablet 12 024 Active Alcohol Swabs (Alcohol Prep) 70 % pads USE DAILY DIRECTED 100 each 11 024 Active Multiple Vitamins-Mineral s (CertaVite/Antio xidants) tabletIndication s:Healthcare maintenance TAKE 1 TABLET BY MOUTH EVERY MORNING 90 tablet 3 024 Active lidocaine (Lidoderm) 5 % patchIndications :Chronic bilateral low back pain, unspecified whether sciatica present APPLY 1 PATCH TOPICALLY TO SKIN, LEAVE ON FOR 12 HOURS AND OFF FOR 12 HOURS DIRECTED 30 patch 1 025 Active metoclopramide (Reglan) 5 MG tablet Take 1 tablet by mouth every 6 (six) hours during the day. 025 Active potassium chloride CR (Klor-Con M20) 20 MEQ ER tablet TAKE 1 TABLET BY MOUTH TWICE DAILY IN THE MORNING AND IN THE EVENING 180 tablet 1 025 Active BD Pen Needle Lorna U/F 32G X 4 MM miscIndications: Type 2 diabetes mellitus with hyperlipidemia (CMS/HCC) ([facility]) USE DIRECTED THREE TIMES DAILY 100 each 5 025 Active amLODIPine (Norvasc) 10 MG tablet TAKE 1 TABLET BY MOUTH EVERY EVENING 90 tablet 1 025 Active montelukast (Singulair) 10 MG tablet TAKE 1 TABLET BY MOUTH EVERY EVENING 90 tablet 1 025 Active levothyroxine (Synthroid, Levoxyl) 75 MCG tabletIndication s:Hypothyroidism , unspecified TAKE 1 TABLET BY MOUTH EVERY MORNING 90 tablet 4 025 Active Continuous Glucose Circuit Manager (FreeStyle Jalil 3 Quincy) device 1 each Once per day. Use as directed for CGM 1 each 025 Active Continuous Glucose Sensor (FreeStyle Jalil 3 Plus Sensor) misc 1 each every 15 days. Apply 1 every 15 days as directed for CGM 2 each 11 025 Active Sodium Fluoride (PreviDent 5000 Booster Plus) 1.1 % paste Apply 1 Application. to teeth 2 times daily. 112 g 3 025 Active Ketotifen Fumarate ( Ketotifen Fumarate) 0.035 % solutionIndicati ons:Allergic conjunctivitis of both eyes Administer 1 drop into affected eye(s) 2 times daily. 10 mL 5 025 Active fluticasone (Flonase) 50 MCG/ACT nasal spray INSTILL 2 SPRAYS IN EACH NOSTRIL ONCE DAILY IN THE MORNING 16 g 3 025 Active semaglutide (Ozempic) 2 MG/1.5ML solution pen-injectorIndi cations:Type 2 diabetes mellitus with hyperlipidemia (CMS/HCC) ([facility]) Inject 0.5 mg under the skin 1 (one) time per week. 1 each 025 Active insulin lispro (HumaLOG KWIKPEN) 100 UNIT/ML injectionIndicat ions:Type 2 diabetes mellitus with hyperlipidemia (CMS/HCC) ([facility]) Take 4-6 units as needed if BG high while taking prednisone; As needed as directed by provider 6 mL Active hydrocortisone (Anusol-HC) 2.5 % rectal cream APPLY 1 APPLICATORFUL RECTALLY TWICE DAILY FOR FOR HEMORRHOIDS Active busPIRone (Buspar) 15 MG tablet Take 1 tablet by mouth every 6 (six) hours during the day. Active glucagon (Baqsimi Two Pack) 3 MG/DOSE nasal powderIndication s:Type 2 diabetes mellitus with diabetic neuropathy, with long-term current use of insulin ([facility]) Administer 3 mg into affected nostril(s) 1 (one) time if needed for low blood sugar for up to 1 dose. USE 1 SPRAY (3MG) IN ONE NOSTRIL FOR A PATIENT WITH SEVERE HYPOGLYCEMIA WHO IS NOT RESPONSIVE AND UNABLE SELF-TREAT WITH GLUCOSE. AFTERWARDS TURN ON SIDE. MAY REPEAT IN 15MINUTES IF PATIENT DOES NOT RESPOND. 2 each Active cetirizine (ZyrTEC) 10 MG tablet Take 1 tablet (10 mg) by mouth Once per day. 30 tablet 2025 Active Diclofenac Sodium 1 % gelIndications:C hronic bilateral low back pain, unspecified whether sciatica present APPLY 2 GRAMS TOPICALLY TO AFFECTED AREA(S) ONCE DAILY NEEDED FOR PAIN 100 g Active TRUEplus Lancets 33G miscIndications: Type 2 diabetes mellitus with hyperglycemia ([facility]) TEST BLOOD SUGAR FOUR TIMES DAILY 200 each Active acetaminophen (Tylenol) 325 MG tabletIndication s:Neck pain TAKE 1 TO 2 TABLETS BY MOUTH EVERY 6 HOURS NEEDED 120 tablet 025 Active traMADol (Ultram) 50 MG tabletIndication s:Cervicalgia TAKE 1 TABLET BY MOUTH TWICE DAILY IN THE MORNING AND AT BEDTIME NEEDED FOR SEVERE PAIN 60 tablet 025 Active enalapril (Vasotec) 20 MG tabletIndication s:Essential hypertension TAKE 1 TABLET BY MOUTH EVERY MORNING 30 tablet Active Fluticasone-Salm eterol 250-50 MCG/ACT aerosol powderIndication s:Severe persistent asthma without complication INHALE 1 PUFF BY MOUTH TWICE DAILY, RINSE MOUTH AFTER USING. 60 each 025 Active gabapentin (Neurontin) 400 MG capsuleIndicatio ns:Chronic SI joint pain TAKE 1 CAPSULE BY MOUTH AT BEDTIME 30 capsule 2 025 Active Glutose 15 40 % gel oral gel TAKE 15 GRAM BY MOUTH DIRECTED FOR LOW BLOOD SUGAR 025 Active ipratropium-albu terol (Duo-Neb) 0.5-2.5 mg/3 mL nebulizer solutionIndicati ons:Severe persistent asthma without complication INHALE AMPULE USING A NEBULIZER EVERY 6 HOURS NEEDED 90 mL 5 025 Active glucose blood (FREESTYLE LITE) test strip 1 strip at bed time. 022 2024 Discontinued(M ed list cleanup (will not trigger notification to Pharmacy)) Fluticasone-Salm eterol 250-50 MCG/ACT aerosol powderIndication s:Severe persistent asthma without complication INHALE 1 PUFF BY MOUTH TWICE DAILY RINSE MOUTH AFTER USING. 60 each 5 025 2024 Discontinued ipratropium-albu terol (Duo-Neb) 0.5-2.5 mg/3 mL nebulizer solutionIndicati ons:Severe persistent asthma without complication INHALE 1 AMPULE USING A NEBULIZER EVERY 6 HOURS NEEDED 90 mL 5 025 2024 Discontinued gabapentin (Neurontin) 400 MG capsuleIndicatio ns:Chronic SI joint pain TAKE 1 CAPSULE BY MOUTH AT BEDTIME 30 capsule 2 025 2024 Discontinued predniSONE (Deltasone) 20 MG tabletIndication s:Asthma-COPD overlap syndrome (CMS/HCC) Take 2 tablets (40 mg) by mouth Once per day. 10 tablet 025 2024 Discontinued(M ed list cleanup (will not trigger notification to Pharmacy)) guaiFENesin (Mucinex) 600 MG 12 hr tablet Take 1 tablet (600 mg) by mouth if needed in the morning and at bedtime for cough or congestion. Do not crush, chew, or split. 30 tablet 025 2024 Discontinued(M ed list cleanup (will not trigger notification to Pharmacy)) enalapril (Vasotec) 20 MG tabletIndication s:Essential hypertension TAKE 1 TABLET BY MOUTH EVERY MORNING 30 tablet 1 025 2024 Discontinued acetaminophen (Tylenol) 325 MG tabletIndication s:Neck pain TAKE 1 TO 2 TABLETS BY MOUTH EVERY 6 HOURS NEEDED 120 tablet 025 2024 Discontinued(R eorder (will not trigger notification to Pharmacy)) traMADol (Ultram) 50 MG tabletIndication s:Cervicalgia Take 1 tablet (50 mg) by mouth if needed in the morning and at bedtime for severe pain. Do not start before August 27, 2024. 60 tablet 025 2024 Discontinued TRUEplus Lancets 33G miscIndications: Type 2 diabetes mellitus with hyperglycemia ([facility]) USE DIRECTED TO TEST BLOOD SUGAR FOUR TIMES DAILY 100 each 5 025 2024 Discontinued Active Problems Problem [...] her family. She will continue services with [facility] for OP therapy and psychiatry services. clinician will be available if needed during next medical appointment. PLAN: (check all that apply) Continue with current services (defined as services in the past 12 months) . Pt is engaged with OP therapy and psychiatry services with [facility] Excessive attrition of teeth, generalized [...] her family. She will continue services with [facility] for OP therapy and psychiatry services. clinician will be available if needed during next medical appointment. PLAN: (check all that apply) Continue with current services (defined as services in the past 12 months) . Pt is engaged with OP therapy and psychiatry services with [facility] @ [facility] Fibromyalgia 07/31/2022 Asthma-COPD overlap syndrome 07/31/2022 Right [...] for possible plantar fasciitis -referred today to course developer x ongoing discomfort -may need orthopedic shoes [...] Plan (06/09/2024 1:53 PM EDT): Counseling done, N was call Assessment & Plan (07/30/2023 12:52 [...] individual therapy and psychiatry with N at [facility]. Sees psych provider every two months and therapist bi-weekly. Pt will reach out to clinician as needed. Assessment & Plan (04/10/2023 11:08 AM EST): PLAN: (check all that apply) Behavioral Health Integration Plan Patient Self Plan Patient to reach out to [facility] team as needed Assessment & [...] healthy manner PLAN: 1. Follow up with [facility]: Not recommended for follow-up 2. Patient goal [...] daily for 5 days augmentin Constipation 08/12/2011 Assessment & Plan (08/11/2024 4:43 PM EDT): Reassurance regarding asymmetry of abdomen due to normal body habitus. We added glycerin supp prn to her senna. Colonoscopy is up to date. Return for other concerns. Nuvia agrees with the plan. Essential hypertension 08/12/2011 Assessment & Plan (06/09/2023 [...] Encounters Date Type Department Care Team Description 10/09/2024 Refill [facility] [address] [place] [address] Anthony Ruiz ANP Severe persistent asthma without complication 10/06/2024 Travel 10/04/2024 Refill [facility] [address] [place] [address] Zakia Uriostegui NP Type 2 diabetes mellitus with hyperglycemia ([facility]) 10/01/2024 11:00 AM EDT Clinical Support [facility] [address] [place] [address] Azeb Hall, RN Neck pain 10/01/2024 Telephone [facility] [address] [place] [address] Azeb Hall RN 10/01/2024 Travel 09/30/2024 Telephone [facility] [address] [place] [address] Anthony Ruiz ANP Referral 09/30/2024 Telephone [facility] [address] [place] [address] Anthony Ruiz ANP Referral 09/30/2024 Refill [facility] [address] [place] [address] Anthony Ruiz ANP Chronic SI joint pain 09/28/2024 Orders Only [facility] [address] [place] [address] Anthony Ruiz ANP 09/25/2024 Refill [facility] [address] [place] [address] Anthony Ruiz ANP Chronic SI joint pain; Essential hypertension; Severe persistent asthma without complication 09/24/2024 2:00 PM EDT Office Visit [facility] [address] [place] [address] Juan, Luisa, OD Diabetes type 2, no ocular involvement (CMS/HCC) (Primary Dx); Mixed type age-related cataract, both eyes; Presbyopia; Allergic conjunctivitis of both eyes; Lesion of left lower eyelid 09/24/2024 Travel 09/19/2024 Refill [facility] [address] [place] [address] Debra Faye MD Cervicalgia 09/16/2024 Refill [facility] [address] [place] [address] Zakia Uriostegui NP Type 2 diabetes mellitus with hyperglycemia (CMS/HCC); Neck pain 09/03/2024 Telephone [facility] [address] [place] [phone] Anthony Ruiz ANP Appointment Request 09/02/2024 Telephone [facility] [address] [place] [phone] Anthony Ruiz ANP Durable Medical Equipment 08/26/2024 Telephone [facility] [address] [place] [phone] Anthony Ruiz ANP Durable Medical Equipment 08/23/2024 Refill [facility] [address] [place] [address] Anthony Ruiz ANP Type 2 diabetes mellitus with hyperglycemia (CMS/HCC) 08/21/2024 Refill [facility] [address] [place] [address] Anthony Ruiz ANP Cervicalgia; Chronic bilateral low back pain, unspecified whether sciatica present 08/20/2024 Refill [facility] [address] [place] [phone] Anthony Ruiz ANP Chronic bilateral low back pain, unspecified whether sciatica present 08/19/2024 9:00 AM EDT Office Visit [facility] [address] [place] [address] Ramon Damon MD Viral URI with cough 08/16/2024 Refill [facility] [address] [address] Debra Faye MD Neck pain 08/13/2024 Orders Only [address] [address] Leora Hoffman RN 08/11/2024 4:00 PM EDT Office Visit [facility] [address] [address] Brittney Nava MD Constipation, unspecified constipation type (Primary Dx) 08/11/2024 Travel 08/10/[address] [address] Anthony Ruiz ANP Prior Authorization 08/04/2024 1:00 PM EDT Office Visit [facility] [address] [place] [address] Nuvia Duarte Dental plaque (Primary Dx); Gingival recession, generalized; Missing teeth, acquired; Excessive attrition of teeth, generalized 08/04/2024 Travel 08/02/[address] [address] Anthony Ruiz ANP Referral 07/31/2024 Refill [facility] [address] [place] [address] Anthony Ruiz ANP Essential hypertension 07/29/[address] [address] Anthony Ruiz ANP Med Refill 07/28/[address] [address] Anthony Ruiz ANP ranjeet recall 07/28/2024 Refill [facility] [address] [place] [address] Anthony Ruiz ANP Neck pain 07/27/2024 Orders Only GENERIC EXTERNAL DATA DEPARTMENT Provider, Generic External Data 07/24/2024 Refill [facility] [address] [place] [address] Anthony Ruiz ANP Cervicalgia 07/22/2024 9:20 AM EDT Office Visit [facility] [address] [place] [phone] Samantha Kumar DO COPD exacerbation ([facility]) (Primary Dx) 07/22/2024 Travel 07/21/2024 Refill [facility] [address] [place] [address] Anthony Ruiz ANP Type 2 diabetes mellitus with diabetic neuropathy, with long-term current use of insulin ([facility]) 07/19/2024 Telephone [facility] [address] [place] [phone] Anthony Ruiz ANP Prior Authorization 07/16/2024 3:00 PM EDT Office Visit [facility] [address] [place] [address] Yogesh Gomez DMD 07/16/2024 Telephone [facility] [address] [place] [phone] Anthony Ruiz ANP Durable Medical Equipment 07/15/2024 1:00 PM EDT Office Visit [facility] [address] [place] [address] Anthony Ruiz ANP Essential hypertension (Primary Dx); Type 2 diabetes mellitus with hyperlipidemia ([facility]) ; Transaminitis; Elevated antinuclear antibody (REX) level; Asthma-COPD overlap syndrome ([facility]); Primary osteoarthritis of both knees; Dizziness; Benign paroxysmal positional vertigo, unspecified laterality 07/15/2024 Travel from Last 3 Months Immunizations Immunization Administration [...] Sign Reading Time Taken Comments Blood Pressure 122/84 10/06/2024 10:22 AM EDT Pulse 83 10/06/2024 10:22 AM EDT Temperature 36.6 C (97.9 F) 08/19/2024 9:08 AM EDT Respiratory Rate 18 08/19/2024 9:08 AM EDT Oxygen Saturation 96% 08/19/2024 9:08 AM EDT Inhaled Oxygen Concentration - - Weight 92.1 kg (203 lb) 08/19/2024 9:08 AM EDT Height 161.3 cm (5' 3.5 ) 08/11/2024 4:10 PM EDT Body Mass Index 35.4 08/11/2024 4:10 PM EDT Plan of Treatment Upcoming Encounters Date Type Department Care Team (Late st Contact Info) Description 10/14/2024 1:30 PM EDT Office Visit [facility] [address] [place] [phone] Anthony Ruiz ANP [address] [place] [address] 11/05/2024 2:30 PM EDT Office Visit [facility] [address] [place] [address] Hallie Tapia MD [address] [place] [phone] 11/12/2024 9:30 AM EDT Clinical Support [facility] [address] [place] [address] Azeb Hall, MARTIN [address] [place] [address] 02/03/2025 11:00 AM EST Medication Management [facility] [address] [place] [address] Yuri Pierre, PharmD [address] [place] [address] Health Maintenance Due Date Last Done Comments CT Colonography 1960 FIT DNA/Cologuard 1960 FIT 1960 FOBT 1960 Sigmoidoscopy 1960 Alcohol/Substance Use Screening 1972 Hepatitis A Vaccines (1 of 2 - Risk 2-dose series) 08/06/1979 Pap Smear 1981 Diabetes: Foot Exam 06/12/2023 06/11/2022, 06/11/2022, 06/11/2022, Additional history exists Depression Monitoring 04/02/2024 10/01/2023, 024 Influenza Vaccine (#1) 2024 , 10/25/2022, 11/22/2021, Additional history exists Diabetes: Hemoglobin A1C 12/15/2024 025, 01/02/2024, 12/30/2023, Additional history exists Diabetes: Urine Protein Screening 01/01/2025 01/02/2024, 01/22/2022, 02/12/2021, Additional history exists Dental Oral Exam 02/04/2025 08/04/2024, , 08/12/2022 Dental Prophylaxis 02/04/2025 08/04/2024, 0 10/06/2023, 09/18/2022, Additional history exists Mammogram 04/12/2025 04/12/2024, 03/21, 03/20/2023, Additional history exists Cervical Cancer Screening 05/09/2025 HPV/Cotest 05/09/2025 05/09/2020, 05/09/2020 Lipid Panel 06/18/2025 06/18/2024, 12/18, 09/05/2022, Additional history exists Disability Screening 07/15/2025 07/15/2024 SDOH Screening 07/15/2025 07/15/2024 Tobacco Screening 08/04/2025 08/04/2024 Dental X-Ray: Bitewings 2025 08/05/19 25, 09/12/2023, 08/12/2022 Dental X-Ray: Full Mouth 09/12/2026 09/12/2023, 09/18 Eye Exam 09/24/2026 09/24/2024, 0809/2024, 09/24/2024, Additional history exists Colonoscopy 12/27/2026 12/27/2021 Colorectal Cancer Screening 12/27/2026 DTaP/Tdap/Td Vaccines (5 - Td or Tdap) 07/08/2028 07/08/2018, 11/30/2012, 11/01/2010, Additional history exists Hepatitis B Vaccines Completed 07/14/2018, 04/06/2009, 06/26/2007 Zoster Vaccines Completed 08/24/2019, 04/09/2019 Pneumococcal Vaccine: 50+ Years Completed 05/06/2022, 08/18/2014 RSV Patients and Patients Aged 60 years or older Completed 03/26/2023 COVID-19 Vaccine Completed 08/04/2024, 04/2022, 11/29/2021, Additional history exists HIV Screening Completed 08/06/2024, 06/15/2024 Hepatitis C Screening Completed 08/06/2024, 025 HIB Vaccines Aged Out No longer eligi [...] SCREENING Routine 10/09/2024 1 :18 PM EDT POCT FRANKLIN-14 URINE DRUG SCREEN Routine 10/01/2024 10:43 AM EDT Neck pain POCT INFLUENZA A (ID NOW RAPID MOLECULAR) Routine 08/19/2024 9:20 AM EDT Viral URI with cough POCT INFLUENZA B (ID NOW RAPID MOLECULAR) Routine 08/19/2024 9:19 AM EDT Viral URI with cough POCT RAPID COVID ANTIGEN Routine 08/19/2024 9:11 AM EDT Viral URI with cough AMB REFERRAL TO RHEUMATOLOGY Urgent 08/06/2024 Transaminitis Elevated antinuclear antibody (REX) level HIV ANTIBODY/ANTIGEN ([facility]) Routine 08/06/2024 HEPATITIS C ANTIBODY ([facility]) Routine 08/06/2024 SYPHILIS ABS ([facility]) Routine 08/06/2024 PERIODIC ORAL EVALUATION - ESTABLISHED PATIENT Routine 08/04/2024 1:00 PM EDT 24,25 INTRAORAL - PERIAPICAL EACH ADDITIONAL RADIOGRAPHIC IMAGE Routine 08/04/2024 1:00 PM EDT Gingival recession, generalized Missing teeth, acquired Excessive attrition of teeth, generalized 9,10 INTRAORAL - PERIAPICAL EACH ADDITIONAL RADIOGRAPHIC IMAGE Routine 08/04/2024 1:00 PM EDT Gingival recession, generalized Missing teeth, acquired Excessive attrition of teeth, generalized 7,8 INTRAORAL - PERIAPICAL FIRST RADIOGRAPHIC IMAGE Routine 08/04/2024 1:00 PM EDT Gingival recession, generalized Missing teeth, acquired Excessive attrition of teeth, generalized CASE PRESENTATION, DETAILED AND EXTENSIVE TREATMENT PLANNING Routine 08/04/2024 1:00 PM EDT Dental plaque Gingival recession, generalized Missing teeth, acquired Excessive attrition of teeth, generalized ORAL HYGIENE INSTRUCTIONS Routine 08/04/2024 1:00 PM EDT Dental plaque Gingival recession, generalized Missing teeth, acquired Excessive attrition of teeth, generalized TOPICAL APPLICATION OF FLUORIDE VARNISH Routine 08/04/2024 1:00 PM EDT Dental plaque Gingival recession, generalized Excessive attrition of teeth, generalized PROPHYLAXIS - ADULT Routine 08/04/2024 1 :00 PM EDT Dental plaque BITEWINGS - 2 RADIOGRAPHIC IMAGES Routine 08/04/2024 1:00 PM EDT Gingival recession, generalized Missing teeth, acquired Excessive attrition of teeth, generalized US RENAL BI Routine 07/29/2024 12:57 PM EDT HIGH SENSITIVITY TROPONIN I Routine 07/27/2024 1:46 PM EDT BASIC METABOLIC PANEL Routine 07/27/2024 1:46 PM EDT CBC WITH AUTO DIFFERENTIAL Routine 07/27/2024 1:46 PM EDT XR CHEST 2 VIEWS Routine 07/27/2024 1:01 PM EDT POCT COVID-19 AG BAILEY ID NOW Routine 07/22/2024 12:19 PM EDT COPD exacerbation (CMS/HCC) POCT INFLUENZA A (ID NOW RAPID MOLECULAR) Routine 07/22/2024 12:19 PM EDT COPD exacerbation (CMS/HCC) POCT INFLUENZA B (ID NOW RAPID MOLECULAR) Routine 07/22/2024 12:19 PM EDT COPD exacerbation (CMS/HCC) XR CHEST 2 VIEWS STAT 07/22/2024 9:15 AM EDT COPD exacerbation (CMS/HCC) CASE PRESENTATION, DETAILED AND EXTENSIVE TREATMENT PLANNING Routine 07/16/2024 3:00 PM EDT 10 LI RESIN-BASED COMPOSITE - 2 SURF, ANTERIOR Routine 07/16/2024 3:00 PM EDT 11 LI RESIN-BASED COMPOSITE - 2 SURF, ANTERIOR Routine 07/16/2024 3:00 PM EDT LIPID PANEL, STANDARD Routine 06/18/2024 10:18 AM EDT Type 2 diabetes mellitus with hyperlipidemia (CMS/HCC) HEMOGLOBIN A1C Routine 06/15/2024 3:08 PM EDT BI MAMMOGRAM SCREENING TOMOSYNTHESIS BILATERAL Routine 04/12/2024 1:48 PM EST ALBUMIN, RANDOM URINE W/CREATININE Routine 01/02/2024 8:44 AM EST Type 2 diabetes mellitus with hyperlipidemia (CMS/HCC) PANORAMIC RADIOGRAPHIC IMAGE Routine 09/12/2023 3:00 PM EDT HM COLONOSCOPY Routine 12/27/2021 ZZZ HISTORICAL HPV E6/E7 RFLX ALFRED 16 18/45 Routine 05/09/2020 11:19 AM EDT from Last 3 Months or Most Recently Relevant to Health Maintenance Results * CT Lung Screening Low dose (10/09/2024 1:18 PM EDT) Anatomical Region Laterality Modality Lung Computed Tomogra phy 10/09/2024 1:18 PM EDT Narrative 10/09/2024 1:20 PM EDT [address] [address] [address] Scan Report Signed Patient: Nuvia Fay MR #: [id number] : 1960 Acct:[id number] Age/Sex: 64 / F ADM Date: 10/08/24 Loc: HO.CT Attending Dr: Ron Preciado MD Ordering Physician: Ron Preciado MD Date of Service: 10/08/24 Procedure(s): CT lung screening Accession Number(s): [id number] cc: Ron Preciado MD; ANTHONY RUIZ NP Report Number: [id number]: Total DLP = 64.00 mGy-cm CLINICAL HISTORY: [...] 10/09/24 1319 DD/ 1318 TD/TT: 10/09/24 1318 Process Development Manager: Procedure Note Donotuseinterpreter, Image - 10/09/[address] [address] [address] Scan Report Signed Patient: Nuvia Fay EMR #: [id number] : 1Acct:[id number] Age/Sex: 64 / FADM Date: 10/08/24 Loc: HO.CT Attending Dr: Ron Preciado MD Ordering Physician: Ron Preciado MD Date of Service: 10/08/24 Procedure(s): CT lung screening Accession Number(s): [id number] cc: Ron Preciado MD; ANTHONY RUIZ NP Report Number: [id number]: Total DLP = 64.00 mGy-cm CLINICAL HISTORY: [...] OV> 10/09/24 1319 DD/ 1318 TD/TT: 10/09/24 131 Process Development Manager: [facility] External Provider IMG CT PROCEDURES Edited Result - Final * POCT FRANKLIN-14 Urine Drug Screen (10/01/2024 10:43 AM EDT) Pathologist [facility] THC Negative Negative Cocaine Screen, Urine Negative [...] - 10/01/2024 10:43 AM EDT .UTOX cup Lot#[id number] Exp. 11/23/25 Internal Pass Control [facility] POINT OF CARE TEST ENTER/EDIT OR DERABLES Final Result * Influenza A (ID NOW Rapid Molecular) (08/19/2024 9:20 AM EDT) Only the most recent of2 resultswithin the time period is included. Pathologist [facility] Influenza A Negative Negative, Indeterminate [facility] Swab 08/19/2024 9:20 AM EDT Ramon Damon MD POINT OF CARE TEST ENTER/EDIT OR DERABLES Final Result Performing Organization Address City/[facility]/ZIP Co de Phone Number [facility] [address] [place] [phone] * Influenza B (ID NOW Rapid Molecular) (08/19/2024 9:19 AM EDT) Only the most recent of2 resultswithin the time period is included. [facility] Influenza B Negative Negative, Indeterminate [facility] Swab 08/19/2024 9:19 AM EDT Ramon Damon MD POINT OF CARE TEST ENTER/EDIT OR DERABLES Final Result Performing Organization Address City/[facility]/ZIP Co de Phone Number [facility] [address] [place] [phone] * POCT Rapid COVID Ag (08/19/2024 9:11 AM EDT) [facility] Rapid COVID Ag Negative Swab 08/19/2024 9:11 AM EDT Ramon Damon MD POINT OF CARE TEST ENTER/EDIT OR DERABLES Final Result * (ABNORMAL) Syphilis Antibodies (DPH) (08/06/2024) [facility] Syphilis Abs Reactive(A) Borderline, Nonreactive, Weakly Reactive, Inconclusive, Specimen unsatisfactory for evaluation Syphilis RPR Nonreactive Blood Venous blood specimen / Unknown 08/06/2024 Jeramie Chew MD LAB BLOOD ORDERABLES Kelsey l Result * Hepatitis C Antibody ([place] DPH) (08/06/2024) [facility] Hepatitis C Ab Nonreactive Blood 08/06/2024 Historical Provider MD LAB BLOOD ORDERABLES Kelsey l Result * HIV Ab/Ag (DAYA DPH) (08/06/2024) HIV Ag/Ab Nonreactive Blood 08/06/2024 Historical Provider LAB BLOOD ORDERABLES Kelsey l Result * Referral to Rheumatology (08/06/2024) 08/06/2024 us Anthony Ruiz ANP OUTPATIENT REFERRAL ORDERABLES F inal Result * US RENAL BI (07/29/2024 12:57 PM EDT) Anatomical Region Laterality Modality Abdomen Ultrasound 07/29/2024 12:5 7 PM EDT Narrative 07/29/2024 12:58 PM EDT [place] [address] Ultrasound Report Signed Patient: Nuvia Fay MR #: [id number] : 1960 Acct:[id number] Age/Sex: 63 / F ADM Date: 07/29/24 Loc: . Attending Dr: Umm Ellsworth ANP-C Ordering Physician: Rosemary Moses Date of Service: 07/29/24 Procedure(s): US renal BI Accession Number(s): [id number] cc: Rosemary Moses; ANTHONY RUIZ NP CLINICAL HISTORY: N20.0 - Calculus of kidney Renal ultrasound Comparison: US - US RENAL BI - 05/26/24 13:[address]/SR - CT ABDOMEN PELVIS W IV CON - 03/20/24 18:22 EST Findings: The kidneys are normal in echotexture bilaterally. Lobular contour of the kidneys; normal variant versus scarring. No hydronephrosis. No identified nephrolithiasis. The right kidney is normal in size, measuring 11.1cm in length. The left kidney is normal in size, measuring 11.1cm in length. Simple cyst in the upper pole measuring 3.8 x 3.8 x 3.7 cm. Impression: No acute findings. This document has been electronically signed by: Ligia Argueta MD on 07/29/2024 12:57:46 Dictated By: Ligia Myrick MD Signed By: <Electronically signed by Ligia Myrick MD in OV> 07/29/24 1258 DD/ 1257 TD/TT: 07/29/24 1257 Process Development Manager: Procedure Note Donotuseinterpreter, Image - 07/29/[address] [address] Ultrasound Report Signed Patient: Nuvia Fay EMR #: [id number] : 1Acct:[id number] Age/Sex: 63 / FADM Date: 07/29/24 Loc: HO.US Attending Dr: Umm Ellsworth ANP-C Ordering Physician: Rosemary Moses Date of Service: 07/29/24 Procedure(s): US renal BI Accession Number(s): [id number] cc: Rosemary Moses; ANTHONY RUIZ NP CLINICAL HISTORY: N20.0 - Calculus of kidney Renal ultrasound Comparison: US - US RENAL BI - 05/26/24 13:[address]/SR - CT ABDOMEN PELVIS W IV CON - 03/20/24 18:22 EST Findings: The kidneys are normal in echotexture bilaterally. Lobular contour of the kidneys; normal variant versus scarring. No hydronephrosis. No identified nephrolithiasis. The right kidney is normal in size, measuring 11.1cm in length. The left kidney is normal in size, measuring 11.1cm in length. Simple cyst in the upper pole measuring 3.8 x 3.8 x 3.7 cm. Impression: No acute findings. This document has been electronically signed by: Ligia Argueta MD on 07/29/2024 12:57:46 Dictated By: Ligia Myrick MD Signed By: <Electronically signed by Ligia Myrick MD in OV> 07/29/24 1258 DD/ 1257 TD/TT: 07/29/24 1257 Process Development Manager: us [facility] External Provider IMG US PROCEDURES Edited Result - Final * High Sensitivity Troponin I (07/27/2024 1:46 PM EDT) Pathologist [facility] TROPONIN I HIGH SENSITIVITY <2.7 <3.5 - 17.0 ng/L [facility] Comment:The Bailey high sens itivity Troponin-I results should beused in conjunction with other diagnostic information suchas ECG, clinical observations and information, and patientsymptoms to aid in the diagnosis of SC. 07/27/2024 1:46 PM EDT 07/27/2024 1:58 PM EDT Generic External Data Provider LAB BLOOD ORDERAB LES Final Result [facility] [address] [place] [address] [phone] * (ABNORMAL) CBC auto differential (07/27/2024 1:46 PM EDT) [facility] White Blood Count 7.3 4.8 - 10.8 X10*3/uL [facility] Red Blood Count 4.60 4.20 - 5.50 X10*6/uL [facility] Hemoglobin 14.6 12.0 - 16.0 g/dl [facility] Hematocrit 43.5 37.0 - 47.0 % [facility] Mean Corpuscular Volume 94.6 80.0 - 98.0 fL [facility] Mean Corpuscular Hemoglobin 31.7 27.0 - 33.0 pg [facility] Mean Corpuscular HGB Conc 33.6 31.0 - 35.0 g/dl [facility] Red Cell Distribution Width 13.7 11.0 - 16.0 % [facility] Platelet Count 301 160 - 400 X10*3/uL [facility] Mean Platelet Volume 9.4 9.4 - 12.3 fL [facility] Neutrophils Percent Auto 44.2(L) 45 - 73 % [facility] Imm Gran Pct Auto 0.3 0.0 - 0.4 % [facility] Lymphocytes Percent Auto 45.7(H) 20 - 40 % [facility] Monocytes Percent Auto 5.5 2 - 11 % [facility] Eosinophils Percent Auto 3.6 0 - 4 % [facility] Basophils Percent Auto 0.7 0 - 2 % [facility] NRBC Pct Auto 0.0 0.0 - 0.2 /100WBC [facility] Neutrophils Absolute Auto 3.2 2.0 - 8.3 x10*3/uL [facility] Imm Gran Abs Auto 0.02 0.00 - 0.03 X10*3/uL [facility] Lymphocytes Absolute Auto 3.3 1.2 - 4.9 X10*3/uL [facility] Monocytes Absolute Auto 0.4 0.1 - 1.2 X10*3/uL [facility] Eosinophils Absolute Auto 0.3 0.0 - 0.4 X10*3/uL [facility] Basophils Absolute Auto 0.1 0.0 - 0.2 X10*3/uL [facility] NRBC Abs Auto 0.000 0.0 - 0.012 X10*3/uL [facility] 07/27/2024 1:46 PM EDT 07/27/2024 1:58 PM EDT us Generic External Data Provider LAB BLOOD ORDERAB LES Final Result [facility] [address] [place] [phone] * (ABNORMAL) Basic Metabolic Panel (07/27/2024 1:46 PM EDT) Sodium 141 135 - 145 mmol/L [facility] Potassium 3.7 3.3 - 5.1 mmol/L [facility] Chloride 111(H) 96 - 108 mmol/L [facility] Carbon Dioxide 26 22 - 29 mmol/L [facility] Anion Gap 8(L) 12 - 20 [facility] Urea Nitrogen (BUN) 14 9 - 16 mg/dL [facility] Creatinine, Serum 0.94 0.5 - 1.4 mg/dL [facility] Creatinine Clr Calc Pharmacy TNP [facility] Comment:Unable to calculate eCrCL; all parameters not provided. Estimated Glomerular Filt Rate >60 [facility] Comment:Chronic Kidney Disea se: Estimated GFR < 60 mL/min/1.51p8Rfuptc Kidney Disease: Estimated GFR < 15 mL/min/1.73m2 Glucose 161(H) 60 - 115 mg/dL [facility] Calcium 9.2 8.4 - 10.2 mg/dL [facility] 07/27/2024 1:46 PM EDT 07/27/2024 1:58 PM EDT us Generic External Data Provider LAB BLOOD ORDERAB LES Final Result Performing Organization Address City/State/[facility] Co de Phone Number [facility] [address] [place] [phone] * XR Chest 2 Views (07/27/2024 1:01 PM EDT) Only the most recent of2 resultswithin the time period is included. Anatomical Region Laterality Modality Chest Radiographic Griselda ging 07/27/2024 1:01 PM EDT Narrative 07/27/2024 2:08 PM EDT [address] [address] XRay Report Signed Patient: Nuvia Fay MR #: [id number] : 1960 Acct:[id number] Age/Sex: 63 / F ADM Date: 07/27/24 Loc: .ED Attending Dr: Ordering Physician: Generic ED Physician Date of Service: 07/27/24 Procedure(s): XR chest 2V Accession Number(s): [id number] cc: Generic ED Physician; ANTHONY RUIZ NP EXAMINATION: XR CHEST 2 VIEWS HISTORY: CP COMPARISON: Comparison is made with the prior examination dated 04/20/2024. FINDINGS: PA and lateral views of the chest are submitted. The lungs are expanded and clear. There is no pleural effusion, pneumothorax, or pulmonary vascular congestion. The heart is normal in size. The aorta is tortuous and calcified. The bones are intact. XR/XR chest 2V IMPRESSION: No acute cardiopulmonary abnormality. Electronically signed by: Kelvin Eldridge MD 07/27/2024 02:05 PM EDT RP Dictated By: Kelvin Eldridge MD Signed By: <Electronically signed by Kelvin Eldridge MD in OV> 07/27/24 1405 DD/ 1301 TD/TT: 07/27/24 140 Process Development Manager: Procedure Note Donotuseinterpreter, Image - 07/27/[address] [address] XRay Report Signed Patient: Nuvia Fay EMR #: [id number] : 1960cct:[id number] Age/Sex: 63 / FADM Date: 07/27/24 Loc: .ED Attending Dr: Ordering Physician: Generic ED Physician Date of Service: 07/27/24 Procedure(s): XR chest 2V Accession Number(s): [id number] cc: Generic ED Physician; ANTHONY RUIZ NP EXAMINATION: XR CHEST 2 VIEWS HISTORY: CP COMPARISON: Comparison is made with the prior examination dated 04/20/2024. FINDINGS: PA and lateral views of the chest are submitted. The lungs are expanded and clear. There is no pleural effusion, pneumothorax, or pulmonary vascular congestion. The heart is normal in size. The aorta is tortuous and calcified. The bones are intact. XR/XR chest 2V IMPRESSION: No acute cardiopulmonary abnormality. Electronically signed by: Kelvin Eldridge MD 07/27/2024 02:05 PM EDT RP Dictated By: Kelvin Eldridge MD Signed By: <Electronically signed by Kelvin Eldridge MD in OV> 07/27/24 1405 DD/ 1301 TD/TT: 07/27/24 1401 Process Development Manager: [facility] External Provider IMG XR PROCEDURES Final Result * POCT COVID-19 Ag Bailey ID NOW (07/22/2024 12:19 PM EDT) Coronavirus Antigen PCR Negative Negative, Indeterminate, None Detected, Invalid, Specimen unsatisfactory for evaluation, Weakly Positive, 2+ Swab 07/22/2024 12:1 9 PM EDT Samantha Kumar DO POINT OF CARE TEST ENTER/CHRISTINA T ORDERABLES Final Result * (ABNORMAL) Lipid Panel, Standard (06/18/2024 10:18 AM EDT) Triglycerides 122 <150 mg/dL [facility] Comment:Desirable Triglyceri de: less than 150 mg/dLBorderline High Triglyceride 150-199 mg/dLHigh Triglyceride: 200-499 mg/dLVery High Triglyceride: greater than or equal to 5OO mg/dL Cholesterol 216(H) <200 mg/dL [facility] Comment:Desirable Cholestero l: less than 200 mg/dLBorderline High Cholesterol: 200-239 mg/dLHigh Cholesterol: greater than 239 mg/dL LDL Cholesterol Calculated 128(H) <100 mg/dL [facility] Comment:Desirable LDL: less than 100 mg/dLNear Optimal/Above Optimal LDL: 110- 129 mg/dLBorderline High LDL: 130-159 mg/dLHigh LDL: 160-189 mg/dLVery High LDL: greater than or equal to 190 mg/dL HDL Cholesterol 64 >40 mg/dL [facility] Comment:Desirable HDL: great er than 40 mg/dL Note: This HDL assay may give artificially low results in patients with liver disease. Blood Venous blood specimen / Unknown 06/18/2024 10:18 AM EDT 06/18/2024 11:08 AM EDT Anthony PAGE LAB BLOOD ORDERABLES Final Resul t [facility] [address] [place] [phone] * (ABNORMAL) Hemoglobin A1c (06/15/2024 3:08 PM EDT) Hemoglobin A1c 6.6(H) <6.0 % [facility] Comment:Hemoglobin A1C Refer ence Range Adults: 4.8 - 6.0 % Non diabetic: < 6.0 % Goal: < 7.0 %Additional Action Suggested: > 8.0 %Note: Hemoglobin A1c results are invalid for patients with abnormal amounts of HbF. Blood transfusions may impact the HbA1c concentration in the patient sample. Estimated Average Glucose 143 mg/dL [facility] Comment:eAG = Estimated ave rage glucose which is %A1C expressed asaverage glucose, using the formula of the O1H-QauelokKnqmmze Glucose study (ADAG), Diabetes Care, Vol.31,#8,Sep. 2007 06/15/2024 3:08 PM EDT 06/15/2024 3:08 PM EDT us Generic External Data Provider LAB BLOOD ORDERAB LES Final Result [facility] [address] [place] [phone] * BI Mammogram Screening Tomosynthesis Bilateral (04/12/2024 1:48 PM EST) Anatomical Region Laterality Modality Breast Bilateral Mammography 04/12/2024 1:48 PM EST Narrative 04/17/2024 12:38 PM EST [facility] [address] [place] [address] [place] [address] Mammography Report Signed Patient: Nuvia Fay MR #: [id number] : 1960 Acct:[id number] Age/Sex: 63 / F ADM Date: 04/12/24 Loc: HO.MAMMO Attending Dr: Monica Lozano CNM Ordering Physician: Monica Lozano CNM Results: 2Beni gn Findings Date of Service: 04/12/24 Follow Up: 1 Year From Orig inal Mammogram Procedure(s): MM tomosynthesis screening BI Accession Number(s): [id number] cc: Monica Lozano CNM; ANTHONY RUIZ LINE PAINTING MACHINE OPERATOR EXAMINATION: MM SCREENING DIGITAL BREAST TOMOSYNTHESIS, BILATERAL [...] by: Cherrie Roberts DO 04/17/2024 12:35 PM [facility] Dictated By: Cherrie Roberts DO Signed By: <Electronically signed by Cherrie Roberts DO in OV> 04/17/24 1235 DD/ 1348 TD/TT: 04/12/24 1405 Process Development Manager: Procedure Note Donotuseinterpreter, Image - 04/17/20[facility] [address] [place] [address] Mammography Report Signed Patient: Nuvia Fay EMR #: [id number] : 1Acct:[id number] Age/Sex: 63 / FADM Date: 04/12/24 Loc: ZOILA.MAMMO Attending Dr: Monica Lozano CNM Ordering Physician: Monica LozanoMResults: 2Beni gn Findings Date of Service: 04/12/24Follow Up: 1 Year From Orig inal Mammogram Procedure(s): MM tomosynthesis screening BI Accession Number(s): [id number] cc: Monica Lozano CNM; RUIZ,ANTHONY LINE PAINTING MACHINE OPERATOR EXAMINATION: MM SCREENING DIGITAL BREAST TOMOSYNTHESIS, BILATERAL [...] 04/17/24 1235 DD/ 1348 TD/TT: 04/12/24 1405 Process Development Manager: [facility] External Provider IMG BI PROCEDURES Edited Result - Final * Albumin, Random Urine W/Creatinine (01/02/2024 8:44 AM EST) Creatinine, Urine 47.20 mg/dL [facility] Microalbumin Urine 7.0 mg/L [facility] Microalbum Creatinine Ratio Ur 14.8 <30 ug/mg cr [facility] Comment:Albumin/Creatinine R atio Reference Ranges: Normal: < 30 ug/mg creatinine Microalbuminuria: 30 - 300 ug/mg creatinineClinical Albuminuria: > 300 ug/mg creatinine Urine (Urine, Random) 01/02/2024 8:44 AM EST 01/02/2024 11:09 AM EST Anthony Ruiz ANP LAB URINE ORDERABLES Final Resul t [facility] [address] [place] [phone] [phone] * (ABNORMAL) Hm Colonoscopy (12/27/2021) Colonoscopy Abnormal(A ) Normal us Historical Provider HEALTH MAINTENANCE Final Result * HPV E6/E7 RFLX ALFRED 16 18/45 (05/09/2020 11:19 AM EDT) HPV mRNA E6/E7 rflx Not Detected Not Detected [facility] Comment: Methodology: Associate Professor Of Sociology-Mediated Amplification This assay detects E6/E7 viral messenger RNA (mRNA) from 14 high-risk HPV types (16,18,31,33,35,39,45,51,52,56,58,59,66,68). The analytical performance characteristics of this assay have been determined by [employer]. The modifications have not been cleared or approved by the FDA. This assay has been validated pursuant to the CLIA regulations and is used for clinical purposes. For additional information, please refer to http://education.[employer]/faq/FMN548m5 (This link if provided for information/ educational purposes only.) THIS TEST WAS PERFORMED AT: [facility] [address] [facility] [address],[place] [address] HERNAN WARREN MD 05/09/2020 11:1 9 AM EDT [facility] [place] HISTORICAL/NON ORDERABLE LABS Fi nal Result [facility] [address] from Last 3 Months or Most Recently Relevant to Health Maintenance Insurance [facility] ONE CARE < 65 DENTAL [facility] Care Teams Firer Boiler Relationship Specialty Start Date End Date Anthony Ruiz ANP [address] [place], [place] PCP - General Family Medicine 09/23/19 Yuri Pierre, Dileep [address] [place], [place] Pharmacist Internal Medicine 05/05/24 Basilio Hall MD [address] [place] [address] Cardiology 05/17/24 Ron Preciado MD [address] [place] [phone] Pulmonary Disease 05/17/24
--- OUTSIDE RECORDS SUMMARY | 2024-10-12 14:04 | XMS_ITS | Encounter Summary ---
Author Organization [email or web address] Address [address] [facility] 7t [place] [address] Care Team Providers Care Wire Brush Maker Name Role Phone Sariah Vickers Primary Care Provider [phone] Yuri Pierre PharmD Unavailable [phone] Basilio Hall MD Unavailable [phone] Ron Preciado MD Unavailable [phone] Reason for Visit * Reason Comments Med Refill Encounter Details Date Type Department Care Team (Late st Contact Info) Description 07/17/2022 Refill [facility] [address] [place] [address] Sariah Vickers ANP [address] [place] [address] Neck pain Social History Tobacco Use Types [...] Description 10/14/2024 1:30 PM EDT Office Visit [address] [address] Sariah Vickers ANP [address] [place] [address] 11/05/2024 2:30 PM EDT Office Visit [address] [address] Hallie Tapia MD [address] [place] [address] 11/12/2024 9:30 AM EDT Clinical Support [address] [address] Azeb Hall RN [address] [place] [address] 02/03/2025 11:00 AM EST Medication Management [address] [address] Yuri Pierre, Dileep [address] [place] [phone] documented as of this encounter Visit Diagnoses Diagnosis Neck pain Cervicalgia documented in this encounter Care Teams Wire Brush Maker Relationship Specialty Start Date End Date Sariah Vickers ANP [address] [place] [phone] PCP - General Family Medicine 09/23/19 Yuri Pierre, PharmD [address] [place] [address] Pharmacist Internal Medicine 05/05/24 Basilio Hall MD [address] [place] [address] Cardiology 05/17/24 Ron Preciado MD [address] [place] [phone] Pulmonary Disease 05/17/24 documented as of this encounter
--- OUTSIDE RECORDS SUMMARY | 2024-10-12 14:04 | XMS_ITS | Encounter Summary ---
Author Organization [employer] Address [address] [facility] 7t [place] [address] Care Team Providers Care Early Morning Babysitter Name Role Phone Sariah Vickers Primary Care Provider [phone] Yrui Pierre PharmD Unavailable [phone] Basilio Hall MD Unavailable [phone] Ron Preciado MD Unavailable [phone] Reason for Visit * Reason Onset Date Comments Referral 08/02/2024 Encounter Details Date Type Department Care Team (Late st Contact Info) Description 08/02/2024 Telephone [facility] [address] [place], [place] [phone] Sariah Vickers ANP [address] [place], [place] [phone] Referral Social History Tobacco Use Types Packs/Day [...] * Telephone Encounter - KAYLEE Lopez - 08/03/2024 6:00 PM EDT Have placed * Telephone Encounter - Blas Wallace - 08/02/2024 11:47 AM EDT Tc from pt requesting a physical therapy referral for vertigo therapy. Please contact pt at [phone]. (Slovak Speaker) documented in this encounter Plan of Treatment Upcoming Encounters Date Type Department Care Team (Late st Contact Info) Description 10/14/2024 1:30 PM EDT Office Visit [facility] [address] [place] [phone] Sariah Vickers ANP [address] [place] [address] 11/05/2024 2:30 PM EDT Office Visit [facility] [address] [place] [address] [phone] Hallie Tapia MD [address] [place] [address] 11/12/2024 9:30 AM EDT Clinical Support [address] [phone] Azeb Hall, MARTIN [address] [place] [address] 02/03/2025 11:00 AM EST Medication Management [address] [phone] Yuri Pierre, MikeD [address] [place] [address] documented as of this encounter Goals Goal [...] documented as of this encounter Care Teams Early Morning Babysitter Relationship Specialty Start Date End Date Sariah Vickers ANP [address] [place] [address] PCP - General Family Medicine 09/23/19 Yuri Pierre, PharmD [address] [place] [address] Pharmacist Internal Medicine 05/05/24 Basilio Hall MD [address] [place] [address] Cardiology 05/17/24 Ron Preciado MD [address] [place] [phone] Pulmonary Disease 05/17/24 documented as of this encounter
--- OUTSIDE RECORDS SUMMARY | 2024-10-12 14:04 | XMS_ITS | Encounter Summary ---
Author Organization [employer] Address 75 [facility] 7t [place] [address] Care Team Providers Care Microphone Boom Operator Name Role Phone Sariah Vickers Primary Care Provider [phone] Yuri Pierre PharmD Unavailable [phone] Basilio Hall MD Unavailable [phone] Ron Preciado MD Unavailable [phone] Reason for Visit * Reason Comments Med Refill Encounter Details Date Type Department Care Team (Late st Contact Info) Description 05/23/2024 Refill [facility] MED & PEDS [address] [place] [address] Sariah Vickers ANP 230 [place] [address] Cervicalgia Social History Tobacco Use Types Packs/Day [...] Description 10/14/2024 1:30 PM EDT Office Visit [address] [address] Sariah Vickers ANP [address] [place] [address] 11/05/2024 2:30 PM EDT Office Visit [address] [address] Hallie Tapia MD [address] [place] [address] 11/12/2024 9:30 AM EDT Clinical Support [address] [address] Azeb Hall, MARTIN [address] [place] [address] 02/03/2025 11:00 AM EST Medication Management [address] [address] Yuri Pierre, PharmD [address] [place] [address] documented as of this encounter Goals Goal [...] documented as of this encounter Care Teams Microphone Boom Operator Relationship Specialty Start Date End Date Sariah Vickers ANP 230 [place] [address] PCP - General Family Medicine 09/23/19 Yuri Pierre, MikeD [address] [place] [address] Pharmacist Internal Medicine 05/05/24 Basilio Hall MD [address] [place] [address] Cardiology 05/17/24 Ron Preciado MD [address] [place] [address] Pulmonary Disease 05/17/24 documented as of this encounter
--- OUTSIDE RECORDS SUMMARY | 2024-10-12 14:04 | XMS_ITS | Encounter Summary ---
Author Organization [employer] Address 75 [facility] 7t [place] [address] Care Team Providers Care Acid Mixer Name Role Phone Sariah Vickers Primary Care Provider [phone] Yuri Pierre PharmD Unavailable [phone] Basilio Hall MD Unavailable [phone] Ron Preciado MD Unavailable [phone] Reason for Visit * Reason Comments Med Refill Encounter Details Date Type Department Care Team (Late st Contact Info) Description 05/09/2023 Refill [facility] MEDICINE 230 [place] [address] Sariah Vickers ANP [address] [place] [address] High cholesterol Social History Tobacco Use Types [...] 10/14/2024 1:30 PM EDT Office Visit [address] [address] Sariah Vickers, KAYLEE [address] [place] [address] 11/05/2024 2:30 PM EDT Office Visit [address] [address] Hallie Tapia MD [address] [place] [address] 11/12/2024 9:30 AM EDT Clinical Support [address] [address] Azeb Hall, MARTIN 505 [place] [address] 02/03/2025 11:00 AM EST Medication Management [address] [address] Yuri Pierre, PharmD [address] [place] [address] documented as of this encounter Goals Goal [...] hypercholesterolemia documented in this encounter Care Teams Acid Mixer Relationship Specialty Start Date End Date Sariah Vickers ANP [address] [place] [address] PCP - General Family Medicine 09/23/19 Yuri Pierre, MikeD [address] [place] [address] Pharmacist Internal Medicine 05/05/24 Basilio Hall MD [address] [place] [address] Cardiology 05/17/24 Ron Preciado MD [address] [place] [address] Pulmonary Disease 05/17/24 documented as of this encounter
--- OUTSIDE RECORDS SUMMARY | 2024-10-12 14:04 | XMS_ITS | Clinical Summary ---
Author Organization [facility] Address [address] [place] [address] Phone Care Team Providers Care Hematologist Name Role Phone Sariah Vickers NP Primary Care Provider Social History Tobacco Use Types Packs/Day Years [...] age to complete this topic Care Teams Hematologist Relationship Specialty Start Date End Date Sariah Vickers NP [address] [place] [phone] PCP - General 12/03/23
--- OUTSIDE RECORDS SUMMARY | 2024-10-12 14:04 | XMS_ITS | Encounter Summary ---
Author Organization [employer] Address 75 [facility] 7t [place] [address] Care Team Providers Care Mainspring Torque Tester Name Role Phone Sariah Vickers Primary Care Provider [phone] Yuri Pierre PharmD Unavailable [phone] Basilio Hall MD Unavailable [phone] Ron Preciado MD Unavailable [phone] Reason for Visit * Reason Comments Med Refill Encounter Details Date Type Department Care Team (Late st Contact Info) Description 07/10/2022 Refill [facility] MEDICINE 230 [place] [address] Sariah Vickers ANP 230 [place] [address] Vertigo Social History Tobacco Use Types Packs/Day [...] 10/14/2024 1:30 PM EDT Office Visit [address] [address] Sariah Vickers ANP [address] [place] [address] 11/05/2024 2:30 PM EDT Office Visit [address] [address] Hallie Tapia MD [address] [place] [address] 11/12/2024 9:30 AM EDT Clinical Support [address] [address] Azeb Hall RN 505 [place] [address] 02/03/2025 11:00 AM EST Medication Management [address] [address] Yuri Pierre, Dileep [address] [place] [address] documented as of this encounter Visit Diagnoses Diagnosis Vertigo Dizziness and giddiness documented in this encounter Care Teams Mainspring Torque Tester Relationship Specialty Start Date End Date Sariah Vickers ANP [address] [place] [address] PCP - General Family Medicine 09/23/19 Yuri Pierre, PharmD [address] [place] [address] Pharmacist Internal Medicine 05/05/24 Basilio Hall MD [address] [place] [address] Cardiology 05/17/24 Ron Preciado MD [address] [place] [address] Pulmonary Disease 05/17/24 documented as of this encounter
--- OUTSIDE RECORDS SUMMARY | 2024-10-12 14:04 | XMS_ITS | Encounter Summary ---
Author Organization [employer] Address 75 [facility] 7t [place] [address] Care Team Providers Care Handkerchief Folder Name Role Phone Sariah Vickers KAYLEE Primary Care Provider [phone] Yuri Pierre PharmD Unavailable [phone] Basilio Hall MD Unavailable [phone] Ron Preciado MD Unavailable [phone] Reason for Visit * Reason Comments Med Refill Encounter Details Date Type Department Care Team (Late st Contact Info) Description 03/04/2023 Refill [facility] 230 [place] [address] Brittney Nava MD 230 [place] [address] Social History Tobacco Use Types Packs/Day Years [...] 10/14/2024 1:30 PM EDT Office Visit [address] [address] Sariah Vickers, ANP [address] [place] [address] 11/05/2024 2:30 PM EDT Office Visit [address] [address] Hallie Tapia MD [address] [place] [address] 11/12/2024 9:30 AM EDT Clinical Support [address] [address] Azeb Hall, MARTIN 505 [place] [address] 02/03/2025 11:00 AM EST Medication Management [address] [address] Yuri Pierre, MikeD [address] [place] [address] documented as of this encounter Goals Goal [...] on filedocumented in this encounter Care Teams Handkerchief Folder Relationship Specialty Start Date End Date Sariah Vickers ANP 230 [place] [address] PCP - General Family Medicine 09/23/19 Yuri Pierre, MikeD [address] [place] [address] Pharmacist Internal Medicine 05/05/24 Basilio Hall MD 596 [place] [address] Cardiology 05/17/24 Ron Preciado MD [address] [place] [address] Pulmonary Disease 05/17/24 documented as of this encounter
--- OUTSIDE RECORDS SUMMARY | 2024-10-12 14:04 | XMS_ITS | Encounter Summary ---
Author Organization [employer] Address 75 [facility] 7t [place] [address] Care Team Providers Care Boating Safety Officer Name Role Phone Sariah Vickers Primary Care Provider [phone] Yuri Pierre PharmD Unavailable [phone] Basilio Hall MD Unavailable [phone] Ron Preciado MD Unavailable [phone] Reason for Visit * Reason Onset Date Comments Med Refill Durable Medical Equipment 07/15/2023 Foam M attress/Raised Toilet Seat Encounter Details Date Type Department Care Team (Late st Contact Info) Description 07/15/2023 Refill [facility] MEDICINE 230 [place], [place] [phone] Sariah Vickers ANP 230 [place] [address] Neck pain Social History Tobacco Use Types [...] Please see request sent via email by [facility] Turbine Attendant Arlin Baker. Please Advise. Good morning, Our [...] Description 10/14/2024 1:30 PM EDT Office Visit [facility] MEDICINE [address] [place] [address] Sariah VickersKAYLEE [address] [place] [address] 11/05/2024 2:30 PM EDT Office Visit [address] [phone] Hallie Tapia MD [address] [place] [address] 11/12/2024 9:30 AM EDT Clinical Support [address] [phone] Azeb Hall, MARTIN 505 [place], [place] [phone] 02/03/2025 11:00 AM EST Medication Management [address] [phone] Yuri Pierre, Dileep [address] [place] [address] documented as of this encounter Goals Goal [...] documented as of this encounter Care Teams Boating Safety Officer Relationship Specialty Start Date End Date Sariah Vickers ANP [address] [place] [address] PCP - General Family Medicine 09/23/19 Yuri Pierre, PharmD [address] [place] [address] Pharmacist Internal Medicine 05/05/24 Basilio Hall MD [address] [place] [address] Cardiology 05/17/24 Ron Preciado MD [address] [place] [address] Pulmonary Disease 05/17/24 documented as of this encounter
--- OUTSIDE RECORDS SUMMARY | 2024-10-12 14:04 | XMS_ITS | Encounter Summary ---
Author Organization [employer] Address 75 [facility] 7t [place] [address] Care Team Providers Care Industrial Eng Name Role Phone Sariah Vickers Primary Care Provider [phone] Yuri Pierre PharmD Unavailable [phone] Basilio Hall MD Unavailable [phone] Ron Preciado MD Unavailable [phone] Reason for Visit * Reason Comments Med Refill Encounter Details Date Type Department Care Team (Late st Contact Info) Description 06/30/2023 [facility]ill [facility] 230 [place] [address] Sariah Vickers ANP 230 [place] [address] Neck pain Social History Tobacco Use Types [...] Description 10/14/2024 1:30 PM EDT Office Visit [address] [address] Sariah Vickers, ANP [address] [place] [address] 11/05/2024 2:30 PM EDT Office Visit [address] [address] Hallie Tapia MD [address] [place] [address] 11/12/2024 9:30 AM EDT Clinical Support [address] [address] Azeb Hall, MARTIN [address] [place] [address] 02/03/2025 11:00 AM EST Medication Management [address] [address] Yuri Pierre, PharmD [address] [place] [address] documented as of this encounter Goals Goal [...] documented as of this encounter Care Teams Industrial Eng Relationship Specialty Start Date End Date Sariah Vickers ANP 230 [place] [address] PCP - General Family Medicine 09/23/19 Yuri Pierre PharmD [address] [place] [address] Pharmacist Internal Medicine 05/05/24 Basilio Hall MD 596 [place] [address] Cardiology 05/17/24 Ron Preciado MD [address] [place] [address] Pulmonary Disease 05/17/24 documented as of this encounter
--- OUTSIDE RECORDS SUMMARY | 2024-10-12 14:04 | XMS_ITS | Encounter Summary ---
Author Organization [employer] Address 75 [facility] 7t [place] [address] Care Team Providers Care Record Clerk Name Role Phone Sariah Vickers Primary Care Provider [phone] Yuri Pierre PharmD Unavailable [phone] Basilio Hall MD Unavailable [phone] Ron Preciado MD Unavailable [phone] Reason for Visit * Reason Onset Date Comments Nurse Triage 01/14/2023 Encounter Details Date Type Department Care Team (Late st Contact Info) Description 01/14/[address] [facility] MEDICINE 230 [place] [address] Sariah Vickers ANP 230 [place] [address] Nurse Triage Social History Tobacco Use Types [...] 01/14/2023 9:26 AM EST Called pt. Via [employer] translator and interpreter [id number] Kelly. Pt. States that she has been [...] at 10am. Will send note to clinical administrator health care facility to have note put in chart . [...] accepted this outcome Please contact pt at [phone] (translator and interpreter needed) documented in this encounter Plan of Treatment Upcoming Encounters Date Type Department Care Team (Late st Contact Info) Description 10/14/2024 1:30 PM EDT Office Visit [address] [address] Sariah Vickers ANP [address] [place] [address] 11/05/2024 2:30 PM EDT Office Visit [address] [address] Hallie Tapia MD [address] [place] [address] 11/12/2024 9:30 AM EDT Clinical Support [address] [address] Azeb Hall, RN 505 [place] [address] 02/03/2025 11:00 AM EST Medication Management [address] [address] Yuri Pierre, Dileep [address] [place] [address] documented as of this encounter Goals Goal Patient Goal Type Associated Problems Recent Progress Patient-Stated? Author Blood Pressure < 140/90 Blood Pressure 122/84(2024 10:22 AM EDT) No Aida Ragland, MikeD Record Your Blood Sugar As Directed General No Aida Ragland, PharmBear Hemoglobin A1c < 7 Result Component 6.6( 5 3:08 PM EDT) No Aida Ragland PharmD documented as of this encounter Visit Diagnoses Not on filedocumented in this encounter Care Teams Record Clerk Relationship Specialty Start Date End Date Sariah Vickers ANP 230 [place] [address] PCP - General Family Medicine 09/23/19 Yuri Pierre, MikeD [address] [place] [address] Pharmacist Internal Medicine 05/05/24 Basilio Hall MD [address] [place] [address] Cardiology 05/17/24 Ron Preciado MD [address] [place] [address] Pulmonary Disease 05/17/24 documented as of this encounter
--- OUTSIDE RECORDS SUMMARY | 2024-10-12 14:04 | XMS_ITS | Encounter Summary ---
Author Organization [employer] Address 75 [facility] 7t [place] [address] Care Team Providers Care Intellectual Property Lawyer Name Role Phone Sariah Vickers Primary Care Provider [phone] Yuri Pierre PharmD Unavailable [phone] Basilio Hall MD Unavailable [phone] Ron Preciado MD Unavailable [phone] Reason for Visit * Reason Comments Med Refill Encounter Details Date Type Department Care Team (Late st Contact Info) Description 02/28/2023 Refill [facility] MEDICINE 230 [place] [address] Sariah Vickers ANP 230 [place] [address] Cervicalgia Social History Tobacco Use Types Packs/Day [...] Description 10/14/2024 1:30 PM EDT Office Visit [address] [address] Sariah Vickers, KAYLEE [address] [place] [address] 11/05/2024 2:30 PM EDT Office Visit [address] [address] Hallie Tapia MD [address] [place] [address] 11/12/2024 9:30 AM EDT Clinical Support [address] [address] Azeb Hall, MARTIN 505 [place] [address] 02/03/2025 11:00 AM EST Medication Management [address] [address] Yuri Pierre, PharmD [address] [place] [address] documented as of this encounter Goals Goal [...] Cervicalgia documented in this encounter Care Teams Intellectual Property Lawyer Relationship Specialty Start Date End Date Sariah Vickers ANP 230 [place] [address] PCP - General Family Medicine 09/23/19 Yuri Pierre, MikeD 230 [place] [address] Pharmacist Internal Medicine 05/05/24 Basilio Hall MD 596 [place] [address] Cardiology 05/17/24 Ron Preciado MD [address] [place] [address] Pulmonary Disease 05/17/24 documented as of this encounter
--- OUTSIDE RECORDS SUMMARY | 2024-10-12 14:04 | XMS_ITS | Encounter Summary ---
Author Organization [employer] Address 75 [facility] 7t [place] [address] Care Team Providers Care Boat Officer Name Role Phone Sariah Vickers Primary Care Provider [phone] Yuri Pierre PharmD Unavailable [phone] Basilio Hall MD Unavailable [phone] Ron Preciado MD Unavailable [phone] Reason for Visit * Reason Comments Med Refill Encounter Details Date Type Department Care Team (Late st Contact Info) Description 08/14/2022 Refill [facility] MED & PEDS [address] [place] [address] Sariah Vickers ANP 230 [place] [address] Severe persistent asthma without complication Social History [...] Description 10/14/2024 1:30 PM EDT Office Visit [address] [address] Sariah Vickers ANP [address] [place] [address] 11/05/2024 2:30 PM EDT Office Visit [address] [address] Hallie Tapia MD [address] [place] [address] 11/12/2024 9:30 AM EDT Clinical Support [address] [address] Azeb Hall, MARTIN 505 [place] [address] 02/03/2025 11:00 AM EST Medication Management [address] [address] Yuri Pierre, Dileep [address] [place] [address] documented as of this encounter Visit Diagnoses Diagnosis Severe persistent asthma without complication documented in this encounter Care Teams Boat Officer Relationship Specialty Start Date End Date Sariah Vickers ANP [address] [place] [address] PCP - General Family Medicine 09/23/19 Yuri Pierre, PharmD [address] [place] [address] Pharmacist Internal Medicine 05/05/24 Basilio Hall MD [address] [place] [address] Cardiology 05/17/24 Ron Preciado MD [address] [place] [address] Pulmonary Disease 05/17/24 documented as of this encounter
--- OUTSIDE RECORDS SUMMARY | 2024-10-12 14:04 | XMS_ITS | Encounter Summary ---
Author Organization [employer] Address 75 [facility] 7t [place] [address] Care Team Providers Care Senior Training Specialist Name Role Phone Sariah Vickers Primary Care Provider [phone] Yuri Pierre PharmD Unavailable [phone] Basilio Hall MD Unavailable [phone] Ron Preciado MD Unavailable [phone] Reason for Visit * Reason Onset Date Comments Referral 05/17/2022 Encounter Details Date Type Department Care Team (Late st Contact Info) Description 05/17/2022 Telephone [facility] MEDICINE 230 [place] [address] Sariah Vickers ANP 230 [place], [place] [phone] Referral Social History Tobacco Use Types Packs/Day [...] guide to vertigo. Please contact pt at [phone] documented in this encounter Plan of Treatment Upcoming Encounters Date Type Department Care Team (Late st Contact Info) Description 10/14/2024 1:30 PM EDT Office Visit [address] [address] Sariah Vickers ANP [address] [place] [address] 11/05/2024 2:30 PM EDT Office Visit [address] [address] Hallie Tapia MD [address] [place] [address] 11/12/2024 9:30 AM EDT Clinical Support [address] [address] Azeb Hall, RN 505 [place] [address] 02/03/2025 11:00 AM EST Medication Management [address] [address] Yuri Pierre, Dileep [address] [place] [address] documented as of this encounter Visit Diagnoses Not on filedocumented in this encounter Care Teams Senior Training Specialist Relationship Specialty Start Date End Date Sariah Vickers ANP [address] [place] [address] PCP - General Family Medicine 09/23/19 Yuri Pierre, PharmD 230 [place] [address] Pharmacist Internal Medicine 05/05/24 Basilio Hall MD 5[address] [place] [address] Cardiology 05/17/24 Ron Preciado MD [address] [place] [address] Pulmonary Disease 05/17/24 documented as of this encounter
--- OUTSIDE RECORDS SUMMARY | 2024-10-12 14:04 | XMS_ITS | Encounter Summary ---
Author Organization [employer] Address 75 [facility] 7t [place] [address] Care Team Providers Care Refrigeration Systems Installer Name Role Phone Sariah Vickers Primary Care Provider [phone] Yuri Pierre PharmD Unavailable [phone] Basilio Hall MD Unavailable [phone] Ron Preciado MD Unavailable [phone] Reason for Visit * Reason Comments Med Refill Encounter Details Date Type Department Care Team (Late st Contact Info) Description 07/10/2023 Refill [facility] 230 [place] [address] Sariah Vickers ANP 230 [place], [place] [phone] Chronic SI joint pain Social History Tobacco [...] Description 10/14/2024 1:30 PM EDT Office Visit [address] [address] Sariah Vickers ANP [address] [place] [address] 11/05/2024 2:30 PM EDT Office Visit [address] [address] Hallie Tapia MD [address] [place] [address] 11/12/2024 9:30 AM EDT Clinical Support [address] [address] Azeb Hall, MARTIN [address] [place] [address] 02/03/2025 11:00 AM EST Medication Management [address] [address] Yuri Pierre, PharmD [address] [place] [address] documented as of this encounter Goals Goal [...] documented as of this encounter Care Teams Refrigeration Systems Installer Relationship Specialty Start Date End Date Sariah Vickers ANP [address] [place] [address] PCP - General Family Medicine 09/23/19 Yuri Pierre, MikeD [address] [place] [address] Pharmacist Internal Medicine 05/05/24 Basilio Hall MD 596 [place] [address] Cardiology 05/17/24 Ron Preciado MD [address] [place] [address] Pulmonary Disease 05/17/24 documented as of this encounter
--- OUTSIDE RECORDS SUMMARY | 2024-10-12 14:04 | XMS_ITS | Encounter Summary ---
Author Organization [employer] Address 75 [facility] 7t [place] [address] Care Team Providers Care Outplacement Consultant Name Role Phone Sariah Vickers Primary Care Provider [phone] Yuri Pierre PharmD Unavailable [phone] Basilio Hall MD Unavailable [phone] Ron Preciado MD Unavailable [phone] Reason for Visit * Reason Comments Med Refill Encounter Details Date Type Department Care Team (Late st Contact Info) Description 12/19/2022 Refill [facility] MEDICINE 230 [place] [address] Sariah Vickers ANP 230 [place] [address] Vertigo Social History Tobacco Use Types Packs/Day [...] 10/14/2024 1:30 PM EDT Office Visit [address] [address] Sariah Vickers, KAYLEE [address] [place] [address] 11/05/2024 2:30 PM EDT Office Visit [address] [address] Hallie Tapia MD [address] [place] [address] 11/12/2024 9:30 AM EDT Clinical Support [address] [address] Azeb Hall, MARTIN 505 [place] [address] 02/03/2025 11:00 AM EST Medication Management [address] [address] Yuri Pierre, PharmD [address] [place] [address] documented as of this encounter Goals Goal [...] giddiness documented in this encounter Care Teams Outplacement Consultant Relationship Specialty Start Date End Date Sariah Vickers ANP 230 [place] [address] PCP - General Family Medicine 09/23/19 Yuri Pierre, MikeD [address] [place] [address] Pharmacist Internal Medicine 05/05/24 Basilio Hall MD [address] [place] [address] Cardiology 05/17/24 Ron Preciado MD [address] [place] [address] Pulmonary Disease 05/17/24 documented as of this encounter
--- OUTSIDE RECORDS SUMMARY | 2024-10-12 14:04 | XMS_ITS | Encounter Summary ---
Author Organization [employer] Address [address] [facility] 7t [place] [address] Care Team Providers Care Transfusion Nurse Name Role Phone Sariah Vickers Primary Care Provider [phone] Yuri Pierre PharmD Unavailable [phone] Basilio Hall MD Unavailable [phone] Ron Preciado MD Unavailable [phone] Reason for Visit * Reason Onset Date Comments Appointment Request 09/03/2024 Encounter Details Date Type Department Care Team (Late st Contact Info) Description 09/03/2024 Telephone [facility] [address] [place] [address] Sariah Vickers ANP 230 [place] [address] Appointment Request Social History Tobacco Use Types Packs/Day [...] encounter Miscellaneous Notes * Telephone Encounter - Jim Conklin - 09/03/2024 10:18 AM EDT Tc from pt requesting an apt to r/s the derm one. Pt would like to be contacted when making the apt. Contact pt at [phone] documented in this encounter Plan of Treatment Upcoming Encounters Date Type Department Care Team (Late st Contact Info) Description 10/14/2024 1:30 PM EDT Office Visit [facility] [address] [place] [address] Sariah Vickers ANP [address] [place] [address] 11/05/2024 2:30 PM EDT Office Visit [facility] [address] [place] [address] Hallie Tapia MD [address] [place] [address] 11/12/2024 9:30 AM EDT Clinical Support [facility] [address] [place] [address] Azeb Hall, RN 505 [place] [address] 02/03/2025 11:00 AM EST Medication Management [facility] [address] [place] [address] Yuri Pierre, PharmD [address] [place] [address] documented as of this encounter Goals Goal [...] documented as of this encounter Care Teams Transfusion Nurse Relationship Specialty Start Date End Date Sariah Vickers ANP [address] [place] [address] PCP - General Family Medicine 09/23/19 Yuri Pierre, PharmD [address] [place] [address] Pharmacist Internal Medicine 05/05/24 Basilio Hall MD [address] [place] [address] Cardiology 05/17/24 Ron Preciado MD [address] [place] [address] Pulmonary Disease 05/17/24 documented as of this encounter
--- OUTSIDE RECORDS SUMMARY | 2024-10-12 14:04 | XMS_ITS | Encounter Summary ---
Author Organization [employer] Address 75 [facility] 7t [place] [address] Care Team Providers Care Maintenance Worker Swimming Pool Name Role Phone Sariah Vickers Primary Care Provider [phone] Yuri Pierre PharmD Unavailable [phone] Basilio Hall MD Unavailable [phone] Ron Preciado MD Unavailable [phone] Reason for Visit * Reason Comments Med Refill Encounter Details Date Type Department Care Team (Late st Contact Info) Description 03/07/2023 Refill [facility] 230 [place] [address] Sariah Vickers ANP 230 [place] [address] Vertigo Social History Tobacco Use Types Packs/Day [...] Description 10/14/2024 1:30 PM EDT Office Visit [address] [address] Sariah Vickers, KAYLEE [address] [place] [address] 11/05/2024 2:30 PM EDT Office Visit [address] [address] Hallie Tapia MD [address] [place] [address] 11/12/2024 9:30 AM EDT Clinical Support [address] [address] Azeb Hall, MARTIN 505 [place] [address] 02/03/2025 11:00 AM EST Medication Management [address] [address] Yuri Pierre, PharmD [address] [place] [address] documented as of this encounter Goals Goal [...] giddiness documented in this encounter Care Teams Maintenance Worker Swimming Pool Relationship Specialty Start Date End Date Sariah Vickers ANP 230 [place] [address] PCP - General Family Medicine 09/23/19 Yuri Pierre, MikeD [address] [place] [address] Pharmacist Internal Medicine 05/05/24 Basilio Hall MD [address] [place] [address] Cardiology 05/17/24 Ron Preciado MD [address] [place] [address] Pulmonary Disease 05/17/24 documented as of this encounter
--- OUTSIDE RECORDS SUMMARY | 2024-10-12 14:04 | XMS_ITS | Encounter Summary ---
Author Organization [employer] Address 75 [facility] 7t [place] [address] Care Team Providers Care Lockstitch Lining Setter Name Role Phone Sariah Vickers Primary Care Provider [phone] Yuri Pierre PharmD Unavailable [phone] Basilio Hall MD Unavailable [phone] Ron Preciado MD Unavailable [phone] Reason for Visit * Reason Onset Date Comments Nurse Triage 12/24/2022 Encounter Details Date Type Department Care Team (Late st Contact Info) Description 12/24/2022 Telephone [facility] 230 [place] [address] Sariah Vickers ANP 230 [place] [address] Nurse Triage Social History Tobacco Use Types [...] - 12/24/2022 1:11 PM EST Called pt.via [employer] floral artist [id number] Benjamin. Pt. States that she wants to [...] regimen and possible referral to a new Lease Out Man due to pt. Not having jeremie in [...] accepted this outcome Please contact pt at [phone] documented in this encounter Plan of Treatment Upcoming Encounters Date Type Department Care Team (Late st Contact Info) Description 10/14/2024 1:30 PM EDT Office Visit [address] [address] Sariah Vickers ANP [address] [place] [address] 11/05/2024 2:30 PM EDT Office Visit [address] [address] Hallie Tapia MD [address] [place] [address] 11/12/2024 9:30 AM EDT Clinical Support [address] [address] Azeb Hall RN 505 [place] [address] 02/03/2025 11:00 AM EST Medication Management [address] [address] Yuri Pierre PharmD [address] [place] [address] documented as of this encounter Goals Goal Patient Goal Type Associated Problems Recent Progress Patient-Stated? Author Blood Pressure < 140/90 Blood Pressure 122/84(2024 10:22 AM EDT) No Phanis-Aida Medina, PharmD Record Your Blood Sugar As Directed General No Phanis-Aida Medina, PharmD Hemoglobin A1c < 7 Result Component 6.6( 3:08 PM EDT) No Phanis-GambAida buck, PharmD documented as of this encounter Visit Diagnoses Not on filedocumented in this encounter Care Teams Lockstitch Lining Setter Relationship Specialty Start Date End Date Sariah Vickers ANP [address] [place] [address] PCP - General Family Medicine 09/23/19 Yuri Pierre, PharmD [address] [place] [address] Pharmacist Internal Medicine 05/05/24 Basilio Hall MD 596 [place] [address] Cardiology 05/17/24 Ron Preciado MD [address] [place] [address] Pulmonary Disease 05/17/24 documented as of this encounter
--- OUTSIDE RECORDS SUMMARY | 2024-10-12 14:04 | XMS_ITS | Encounter Summary ---
Author Organization [employer] Address 75 [facility] 7t [place] [address] Care Team Providers Care Petroleum Analyst Name Role Phone Sariah Vickers Primary Care Provider [phone] Yuri Pierre PharmD Unavailable [phone] Basilio Hall MD Unavailable [phone] Ron Preciado MD Unavailable [phone] Reason for Visit * Reason Comments Med Refill Encounter Details Date Type Department Care Team (Late st Contact Info) Description 05/21/2023 Refill [facility] MED[facility]INE 230 [place] [address] Sariah Vickers ANP 230 [place] [address] Neck pain Social History Tobacco Use Types [...] Description 10/14/2024 1:30 PM EDT Office Visit [address] [address] Sariah Vickers ANP [address] [place] [address] 11/05/2024 2:30 PM EDT Office Visit [address] [address] Hallie Tapia MD [address] [place] [address] 11/12/2024 9:30 AM EDT Clinical Support [address] [address] Azeb Hall RN 505 [place] [address] 02/03/2025 11:00 AM EST Medication Management [facility] 230 [place] [address] Yuri Pierre, PharmD 230 [place] [address] documented as of this encounter Goals Goal [...] Cervicalgia documented in this encounter Care Teams Petroleum Analyst Relationship Specialty Start Date End Date Sariah Vickers ANP 230 [place] [address] PCP - General Family Medicine 09/23/19 Yuri Pierre, PharmD 230 [place] [address] Pharmacist Internal Medicine 05/05/24 Basilio Hall MD 596 [place] [address] Cardiology 05/17/24 Ron Preciado MD [address] [place] [address] Pulmonary Disease 05/17/24 documented as of this encounter
--- OUTSIDE RECORDS SUMMARY | 2024-10-12 14:04 | XMS_ITS | Encounter Summary ---
Author Organization [employer] Address 75 [facility] 7t [place] [address] Care Team Providers Care Chlorinator Operator Name Role Phone Sariah Vickers Primary Care Provider [phone] Yuri Pierre PharmD Unavailable [phone] Basilio Hall MD Unavailable [phone] Ron Preciado MD Unavailable [phone] Reason for Visit * Reason Onset Date Comments Med Refill 03/04/2023 Encounter Details Date Type Department Care Team (Late st Contact Info) Description 03/04/2023 Telephone [facility] MEDICINE 230 [place], [place] [phone] Sariah Vickers ANP 230 [place], [place] [phone] Med Refill Social History Tobacco Use Types [...] 50 MG tablet To be sent to: [facility] - [place], [place] - [address] [place] [address] documented in this encounter Plan of Treatment Upcoming Encounters Date Type Department Care Team ([facility] st Contact Info) Description 10/14/2024 1:30 PM EDT Office Visit [facility] MEDICINE [address] [place] [address] Sariah Vickers ANP 230 [place] [address] 11/05/2024 2:30 PM EDT Office Visit [facility] MED[facility]INE [address] [place] [address] Hallie Tapia MD 230 [place] [address] 11/12/2024 9:30 AM EDT Clinical Support [facility]INE [address] [place] [address] Azeb Hall RN [address] [place] [address] [place] [address] 02/03/2025 11:00 AM EST Medication Management [facility]INE 230 [place] [address] Yuri Pirere, PharmD 230 [place] [address] documented as of this encounter Goals Goal [...] on filedocumented in this encounter Care Teams Chlorinator Operator Relationship Specialty Start Date End Date Sariah Vickers ANP 230 [place] [address] PCP - General Family Medicine 09/23/19 Yuri Pierre, PharmD 230 [place] [address] Pharmacist Internal Medicine 05/05/24 Basilio Hall MD [address] [place] [address] Cardiology 05/17/24 Ron Preciado MD [address] [place] [address] Pulmonary Disease 05/17/24 documented as of this encounter
--- OUTSIDE RECORDS SUMMARY | 2024-10-12 14:04 | XMS_ITS | Encounter Summary ---
Author Organization [employer] Address 75 [facility] 7t [place] [address] Care Team Providers Care Sole Leather Cutting 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 Name Role Phone Sariah Vickers KAYLEE Primary Care Provider [phone] Yuri Pierre PharmD Unavailable [phone] Basilio Hall MD Unavailable [phone] Ron Preciado MD Unavailable [phone] Reason for Visit * Reason Comments Med Refill Encounter Details Date Type Department Care Team (Late st Contact Info) Description 10/04/2024 Refill [facility] [address] [place] [address] Zakia Uriostegui, SPINNING MULE TENDER 230 [place] [address] Type 2 diabetes mellitus with hyperglycemia (CMS/HCC) Social History Tobacco Use Types Packs/Day Years [...] Description 10/14/2024 1:30 PM EDT Office Visit [address] [address] Sariah Vickers ANP [address] [place] [address] 11/05/2024 2:30 PM EDT Office Visit [address] [address] Hallie Tapia MD [address] [place] [address] 11/12/2024 9:30 AM EDT Clinical Support [address] [address] Azeb Hall RN 505 [place] [address] 02/03/2025 11:00 AM EST Medication Management [address] [address] Yuri Pierre, PharmD 230 [place] [address] documented as of this encounter Goals Goal [...] Diagnoses Diagnosis Type 2 diabetes mellitus with hyperglycemia (CMS/HCC) documented in this encounter Additional Health Concerns Assessment Noted Time PHQ-9 Depression Total Score: 12 024 2:58 PM EDT documented as of this encounter Care Teams Sole Leather Cutting 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 Relationship Specialty Start Date End Date Sariah Vickers ANP 230 [place] [address] PCP - General Family Medicine 09/23/19 Yuri Pierre, PharmD 230 [place] [address] Pharmacist Internal Medicine 05/05/24 Basilio Hall MD 596 [place] [address] Cardiology 05/17/24 Ron Preciado MD [address] [place] [address] Pulmonary Disease 05/17/24 documented as of this encounter
--- OUTSIDE RECORDS SUMMARY | 2024-10-12 14:04 | XMS_ITS | Encounter Summary ---
Author Organization [employer] Address 75 [facility] 7t [place] [address] Care Team Providers Care City Dispatch Supervisor Name Role Phone Sariah Vickers Primary Care Provider [phone] Yuri Pierre PharmD Unavailable [phone] Basilio Hall MD Unavailable [phone] Ron Preciado MD Unavailable [phone] Reason for Visit * Reason Comments Med Refill Encounter Details Date Type Department Care Team (Late st Contact Info) Description 12/27/2022 Refill [facility]INE 230 [place] [address] Sariah Vickers ANP 230 [place] [address] Neck pain Social History Tobacco Use Types [...] 10/14/2024 1:30 PM EDT Office Visit [address] [address] Sariah Vickers, KAYLEE [address] [place] [address] 11/05/2024 2:30 PM EDT Office Visit [address] [address] Hallie Tapia MD [address] [place] [address] 11/12/2024 9:30 AM EDT Clinical Support [address] [address] Azeb Hall, MARTIN 505 [place] [address] 02/03/2025 11:00 AM EST Medication Management [address] [address] Yuri Pierre, PharmD [address] [place] [address] documented as of this encounter Goals Goal [...] Cervicalgia documented in this encounter Care Teams City Dispatch Supervisor Relationship Specialty Start Date End Date Sariah iVckers ANP 230 [place] [address] PCP - General Family Medicine 09/23/19 Yuri Pierre, MikeD 230 [place] [address] Pharmacist Internal Medicine 05/05/24 Basilio Hall MD 596 [place] [address] Cardiology 05/17/24 Ron Preciado MD [address] [place] [address] Pulmonary Disease 05/17/24 documented as of this encounter
--- OUTSIDE RECORDS SUMMARY | 2024-10-12 14:04 | XMS_ITS | Encounter Summary ---
Author Organization [employer] Address 75 [facility] 7t [place] [address] Care Team Providers Care Blue Leather Sorter Name Role Phone Sariah Vickers Primary Care Provider [phone] Yuri Pierre PharmD Unavailable [phone] Basilio Hall MD Unavailable [phone] Ron Preciado MD Unavailable [phone] Reason for Visit * Reason Comments Med Refill Encounter Details Date Type Department Care Team (Late st Contact Info) Description 07/12/2022 Refill [facility] MEDICINE 230 [place] [address] Sariah Vickers ANP 230 [place] [address] Social History Tobacco Use Types Packs/Day Years [...] 10/14/2024 1:30 PM EDT Office Visit [address] [address] Sariah Vickers ANP [address] [place] [address] 11/05/2024 2:30 PM EDT Office Visit [address] [address] Hallie Tapia MD [address] [place] [address] 11/12/2024 9:30 AM EDT Clinical Support [address] [address] Azeb Hall RN 505 [place] [address] 02/03/2025 11:00 AM EST Medication Management [address] [address] Yuri Pierre, PharmD [address] [place] [address] documented as of this encounter Visit Diagnoses Not on filedocumented in this encounter Care Teams Blue Leather Sorter Relationship Specialty Start Date End Date Sariah Vickers ANP [address] [place] [address] PCP - General Family Medicine 09/23/19 Yuri Pierre, PharmD [address] [place] [address] Pharmacist Internal Medicine 05/05/24 Basilio Hall MD 596 [place] [address] Cardiology 05/17/24 Ron Preciado MD [address] [place] [address] Pulmonary Disease 05/17/24 documented as of this encounter
== END 2024-10-12 14:30 | disposition home or self-care (01) ==
LOC: HO.HGI 13:12
PROVIDERS: PCP Nurse Practitioner Primary Care; Visit Provider Nurse Practitioner
DX: E11.65 Type 2 diabetes mellitus with hyperglycemia (principal); Z79.4 Long term (current) use of insulin; R74.01 Elevation of levels of liver transaminase levels; R76.8 Other specified abnormal immunological findings in serum; R11.0 Nausea; K75.81 Nonalcoholic steatohepatitis (NASH); K59.9 Functional intestinal disorder, unspecified; K59.04 Chronic idiopathic constipation; K21.9 Gastro-esophageal reflux disease without esophagitis
CPT/HCPCS: 99214

== ENCOUNTER 2024-10-12 13:12 | Outpatient (REF) | payer OTHER, SELFPAY ==
[2024-10-12 14:30] LABS: INTERNATIONAL NORM RATIO 1.0 (0.9-1.1); Prothrombin Time 10.9 SEC (10.9-12.4)
[2024-10-12 15:16] LABS: Amylase 36 U/L (28-100); Lipase 20 U/L (8-78)
[2024-10-12 15:22] LABS: Ferritin 69 ng/mL (10-250)
[2024-10-12 15:30] LABS: Hemoglobin A1C 177.8659 umol/L; Total Hemoglobin (HGBA1C) 3715.9558 umol/L
[2024-10-12 15:55] LABS: Free T4 (Free Thyroxine) 0.99 ng/dL (0.71-1.85)
[2024-10-20 11:30] LABS: Anti Nuclear Antibody Screen POSITIVE (NEGATIVE)
[2024-10-20 11:38] LABS: Anti Nuclear Antibody Pattern Nuclear, Homogeneous; Anti Nuclear Antibody Titer 1:1280 titer
== END 2024-10-12 13:13 | disposition home or self-care (01) ==
LOC: HO.LAB 13:12
PROVIDERS: PCP Nurse Practitioner Primary Care; Visit Provider Nurse Practitioner
DX: K75.81 Nonalcoholic steatohepatitis (NASH) (principal); K21.9 Gastro-esophageal reflux disease without esophagitis; K59.04 Chronic idiopathic constipation; R74.01 Elevation of levels of liver transaminase levels; E11.65 Type 2 diabetes mellitus with hyperglycemia; Z79.4 Long term (current) use of insulin; R76.8 Other specified abnormal immunological findings in serum; R10.9 Unspecified abdominal pain; Z79.899 Other long term (current) drug therapy
CPT/HCPCS: 36415; 82150; 82728; 83036; 83690; 84439; 84443; 85610; 86015; 86038; 86039; 86140; 99212

== ENCOUNTER 2024-10-20 09:17 | Outpatient (AMB) | payer OTHER, SELFPAY ==
--- OUTSIDE RECORDS SUMMARY | 2024-10-20 09:59 | XMS_ITS | Encounter Summary ---
Author Organization [employer] Address 75 [facility] 7t [place] [address] Care Team Providers Care Bible Worker Name Role Phone Sariah Vickers Primary Care Provider Yuri Pierre PharmD Unavailable [phone] Basilio Hall MD Unavailable [phone] Ron Preciado MD Unavailable [phone] Encounter Details Date Type Department Care Team (Latest Contact Info) Description 04/14/2020 Abstract [facility] CONVERSIONS Dental, Provider, DDS Social [...] Care Team (Late st Contact Info) Description 11/05/2024 2:30 PM EDT Office Visit [facility] MEDICINE [address] [place] [address] Hallie Tapia MD [address] [place] [address] 11/12/2024 9:30 AM EDT Clinical Support [facility] MEDICINE [address] [place] [address] Azeb Hall RN 505 [place] [address] 01/11/2025 1:00 PM EST Office Visit [address] [address] Sariah Vickers ANP [address] [place] [address] 02/03/2025 11:00 AM EST Medication Management [address] [address] Yuri Pierre, PharmBear [address] [place] [address] documented as of this encounter Visit Diagnoses Not on filedocumented in this encounter Care Teams Bible Worker Relationship Specialty Start Date End Date Sariah Vickers ANP [address] [place] [address] PCP - General Family Medicine 09/23/19 Yuri Pierre, PharmD [address] [place] [address] Pharmacist Internal Medicine 05/05/24 Basilio Hall MD 6 [place] [address] Cardiology 05/17/24 Ron Preciado MD [address] [place] [address] Pulmonary Disease 05/17/24 documented as of this encounter
--- OUTSIDE RECORDS SUMMARY | 2024-10-20 09:59 | XMS_ITS | Encounter Summary ---
Author Organization [email or web address] Address 75 [facility] 7t [place] [address] Care Team Providers Care Leasing Sales Consultant Name Role Phone Sariah Vickers Primary Care Provider [phone] Yuri Pierre PharmD Unavailable [phone] Basilio Hall MD Unavailable [phone] Ron Preciado MD Unavailable [phone] Reason for Visit * Reason Comments Med Refill Encounter Details Date Type Department Care Team (Late st Contact Info) Description 02/06/2022 Refill [facility] MEDICINE 230 [place] [address] Sariah Vickers ANP 230 [place] [address] Social History Tobacco Use Types Packs/Day Years [...] Description 11/05/2024 2:30 PM EDT Office Visit [address] [address] Hallie Tapia MD [address] [place] [address] 11/12/2024 9:30 AM EDT Clinical Support [address] [address] Azeb Hall RN 505 [place] [address] 01/11/2025 1:00 PM EST Office Visit [address] [address] Sariah Vickers ANP [address] [place] [address] 02/03/2025 11:00 AM EST Medication Management [address] [address] Yuri Pierre, Dileep [address] [place] [address] documented as of this encounter Visit Diagnoses Not on filedocumented in this encounter Care Teams Leasing Sales Consultant Relationship Specialty Start Date End Date Sariah Vickers ANP [address] [place] [address] PCP - General Family Medicine 09/23/19 Yuri Pierre, PharmD [address] [place] [address] Pharmacist Internal Medicine 05/05/24 Basilio Hall MD 596 [place] [address] Cardiology 05/17/24 Ron Preciado MD [address] [place] [address] Pulmonary Disease 05/17/24 documented as of this encounter
--- OUTSIDE RECORDS SUMMARY | 2024-10-20 09:59 | XMS_ITS | Encounter Summary ---
Author Organization [employer] Address 75 [facility] 7t [place] [address] Care Team Providers Care Newspaper Delivery Counselor Name Role Phone Sariah Vickers Primary Care Provider [phone] Yuri Pierre PharmD Unavailable [phone] Basilio Hall MD Unavailable [phone] Ron Preciado MD Unavailable [phone] Reason for Visit * Reason Onset Date Comments Med Refill 09/18/2023 Encounter Details Date Type Department Care Team (Late st Contact Info) Description 09/18/2023 Telephone [facility] MEDICINE 230 [place], [place] [phone] Sariah Vickers ANP 230 [place], [place] [phone] Med Refill Social History Tobacco Use Types [...] refill : Tramadol To be sent to: [facility] - [place], [place] - [address] [place] [address] documented in this encounter Plan of Treatment Upcoming Encounters Date Type Department Care Team ([facility] st Contact Info) Description 11/05/2024 2:30 PM EDT Office Visit [address] [address] Hallie Tapia MD [address] [place] [address] 11/12/2024 9:30 AM EDT Clinical Support [address] [address] Azeb Hall RN 505 [place] [address] 01/11/2025 1:00 PM EST Office Visit [address] [place] [address] Sariah Vickers ANP 230 [place] [address] 02/03/2025 11:00 AM EST Medication Management [facility] MEDICINE 230 [place] [address] Yuri Pierre, MikeD 230 [place] [address] documented as of this encounter Goals Goal Patient Goal Type Associated Problems Recent Progress Patient-Stated? Author Blood Pressure < 140/90 Blood Pressure 140/90(2024 1:50 PM EDT) No Aida Ragland PharmBear Record Your [...] documented as of this encounter Care Teams Newspaper Delivery Counselor Relationship Specialty Start Date End Date Sariah Vickers ANP [address] [place] [address] PCP - General Family Medicine 09/23/19 Yuri Pierre, PharmD [address] [place] [address] Pharmacist Internal Medicine 05/05/24 Basiilo Hall MD 5[address] [place] [address] Cardiology 05/17/24 Ron Preciado MD [address] [place] [address] Pulmonary Disease 05/17/24 documented as of this encounter
--- OUTSIDE RECORDS SUMMARY | 2024-10-20 09:59 | XMS_ITS | Encounter Summary ---
Author Organization [employer] Address 75 [facility] 7t [place] [address] Care Team Providers Care Flaring 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 Name Role Phone Sariah Vickers Primary Care Provider Yuri Pierre PharmD Unavailable [phone] Basilio Hall MD Unavailable [phone] Ron Preciado MD Unavailable [phone] Encounter Details Date Type Department Care Team (Latest Contact Info) Description 05/15/[address] [facility] CONVERSIONS Dental, Provider, DDS Social History [...] Description 11/05/2024 2:30 PM EDT Office Visit [facility] MEDICINE [address] [place] [address] Hallie Tapia MD [address] [place] [address] 11/12/2024 9:30 AM EDT Clinical Support [facility] MEDICINE [address] [place] [address] Azeb Hall RN 505 [place] [address] 01/11/2025 1:00 PM EST Office Visit [address] [address] Sariah Vickers ANP [address] [place] [address] 02/03/2025 11:00 AM EST Medication Management [address] [address] Yuri Pierre, Dileep [address] [place] [address] documented as of this encounter Visit Diagnoses Not on filedocumented in this encounter Care Teams Flaring 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 Relationship Specialty Start Date End Date Sariah Vickers ANP [address] [place] [address] PCP - General Family Medicine 09/23/19 Yuri Pierre, PharmD [address] [place] [address] Pharmacist Internal Medicine 05/05/24 Basilio Hall MD 596 [place] [address] Cardiology 05/17/24 Ron Preciado MD [address] [place] [address] Pulmonary Disease 05/17/24 documented as of this encounter
--- OUTSIDE RECORDS SUMMARY | 2024-10-20 09:59 | XMS_ITS | Encounter Summary ---
Author Organization [employer] Address 75 [facility] 7t [place] [address] Care Team Providers Care Respiratory Care Practitioner Name Role Phone Sariah Vickers Primary Care Provider [phone] Yuri Pierre PharmD Unavailable [phone] Basilio Hall MD Unavailable [phone] Ron Preciado MD Unavailable [phone] Reason for Visit * Reason Comments Med Refill Encounter Details Date Type Department Care Team (Late st Contact Info) Description 08/22/2023 Refill [facility] MED[facility] 230 [place] [address] Sariah Vickers ANP 230 [place] [address] Neck pain Social History Tobacco Use Types [...] is your housing situation today? I have ordrigo kent 06/23/[address] you [...] Description 11/05/2024 2:30 PM EDT Office Visit [address] [address] Hallie Tapia MD [address] [place] [address] 11/12/2024 9:30 AM EDT Clinical Support [address] [address] Azeb Hall RN 505 [place] [address] 01/11/2025 1:00 PM EST Office Visit [address] [address] Sairah Vickers, ANP [address] [place] [address] 02/03/2025 11:00 AM EST Medication Management [address] [address] Yuri Pierre, PharmD [address] [place] [address] documented as of this encounter Goals Goal Patient Goal Type Associated Problems Recent Progress Patient-Stated? Author Blood Pressure < 140/90 Blood Pressure 140/90(2024 1:50 PM EDT) No Aida Ragland PharmD Record Your [...] documented as of this encounter Care Teams Respiratory Care Practitioner Relationship Specialty Start Date End Date Sariah Vickers ANP 230 [place] [address] PCP - General Family Medicine 09/23/19 Yuri Pierre PharmD [address] [place] [address] Pharmacist Internal Medicine 05/05/24 Basilio Hall MD [address] [place] [address] Cardiology 05/17/24 Ron Preciado MD [address] [place] [address] Pulmonary Disease 05/17/24 documented as of this encounter
--- OUTSIDE RECORDS SUMMARY | 2024-10-20 09:59 | XMS_ITS | Encounter Summary ---
Author Organization [employer] Address 75 [facility] 7t [place] [address] Care Team Providers Care Snow Plow Operator Name Role Phone Sariah Vickers Primary Care Provider [phone] Yuri Pierre PharmD Unavailable [phone] Basilio Hall MD Unavailable [phone] Ron Preciado MD Unavailable [phone] Reason for Visit * Reason Comments Med Refill Pt wants to know if she can keep taking prednis Encounter Details Date Type Department Care Team (Late st Contact Info) Description 06/26/2024 Refill [facility] & PEDS [address] [place] [address] Sariah Vickers ANP 230 [place] [address] Cervicalgia Social History Tobacco Use Types Packs/Day [...] Description 11/05/2024 2:30 PM EDT Office Visit [address] [address] Hallie Tapia MD [address] [place] [address] 11/12/2024 9:30 AM EDT Clinical Support [address] [address] Azeb Hall RN 505 [place] [address] 01/11/2025 1:00 PM EST Office Visit [address] [address] Sariah Vickers, KAYLEE [address] [place] [address] 02/03/2025 11:00 AM EST Medication Management [address] [address] Yuri Pierre, PharmD [address] [place] [address] documented as of this encounter Goals Goal Patient Goal Type Associated Problems Recent Progress Patient-Stated? Author Blood Pressure < 140/90 Blood Pressure 140/90(2024 1:50 PM EDT) No Piers-Gambl e, Aida, PharmD Record Your Blood Sugar As Directed General No Piers-Gambl e, Aida, PharmD Hemoglobin A1c < 7 Result Component 6.6( 1:54 PM EDT) No Piers-Gambl e, Aida, PharmD documented as of this encounter Visit Diagnoses Diagnosis Cervicalgia documented in this encounter Additional Health Concerns Assessment Noted Time PHQ-9 Depression Total Score: 12 024 2:58 PM EDT documented as of this encounter Care Teams Snow Plow Operator Relationship Specialty Start Date End Date Sariah Vickers ANP 230 [place] [address] PCP - General Family Medicine 09/23/19 Yuri Pierre, MikeD 230 [place] [address] Pharmacist Internal Medicine 05/05/24 Basilio Hall MD 596 [place] [address] Cardiology 05/17/24 Ron Preciado MD [address] [place] [address] Pulmonary Disease 05/17/24 documented as of this encounter
--- OUTSIDE RECORDS SUMMARY | 2024-10-20 09:59 | XMS_ITS | Encounter Summary ---
Author Organization [employer] Address 75 [facility] 7t [place] [address] Care Team Providers Care Physics Technical Officer Name Role Phone Sariah Vickers Primary Care Provider Yuri Pierre PharmD Unavailable [phone] Basilio Hall MD Unavailable [phone] Ron Preciado MD Unavailable [phone] Encounter Details Date Type Department Care Team (Late st Contact Info) Description 01/09/2022 Abstract [facility] [address] [place] [address] Dental, Provider, DDS Social History Tobacco Use [...] Department Care Team (Late Contact Info) Description 11/05/2024 2:30 PM EDT Office Visit [facility] MEDICINE [address] [place] [address] Hallie Tapia MD [address] [place] [address] 11/12/2024 9:30 AM EDT Clinical Support [facility] [address] [place] [address] Azeb Hall RN 505 [place] [address] 01/11/2025 1:00 PM EST Office Visit [facility] [address] [place] [address] Sariah Vickers ANP 230 [place] [address] 02/03/2025 11:00 AM EST Medication Management [facility] 230 [place] [address] Yuri Pierre, PharmD 230 [place], [place] [phone] documented as of this encounter Procedures Procedure [...] on filedocumented in this encounter Care Teams Physics Technical Officer Relationship Specialty Start Date End Date Sariah Vickers ANP 230 [place] [address] PCP - General Family Medicine 09/23/19 Yuri Pierre, MikeD 230 [place] [address] Pharmacist Internal Medicine 05/05/24 Basilio Hall MD 596 [place] [address] Cardiology 05/17/24 Ron Preciado MD [address] [place] [address] Pulmonary Disease 05/17/24 documented as of this encounter
--- OUTSIDE RECORDS SUMMARY | 2024-10-20 09:59 | XMS_ITS | Encounter Summary ---
Author Organization [employer] Address 75 [facility] 7t [place] [address] Care Team Providers Care Lobby Attendant Name Role Phone Sariah Vickers Primary Care Provider Yuri Pierre PharmD Unavailable [phone] Basilio Hall MD Unavailable [phone] Ron Preciado MD Unavailable [phone] Reason for Visit * Reason Onset Date Comments Durable Medical Equipment 03/15/2022 Encounter Details Date Type Department Care Team (Late st Contact Info) Description 03/15/2022 Telephone [facility] MEDICINE 230 [place] [address] Sariah Vickers ANP 230 [place], [place] [phone] Durable Medical Equipment Social History Tobacco Use [...] Description 11/05/2024 2:30 PM EDT Office Visit [address] [address] Hallie Tapia MD [address] [place] [address] 11/12/2024 9:30 AM EDT Clinical Support [address] [address] Azeb Hall, MARTIN 505 [place] [address] 01/11/2025 1:00 PM EST Office Visit [address] [address] Sariah Vickers ANP [address] [place] [address] 02/03/2025 11:00 AM EST Medication Management [address] [address] Yuri Pierre, MikeD [address] [place] [address] documented as of this encounter Visit Diagnoses Not on filedocumented in this encounter Care Teams Lobby Attendant Relationship Specialty Start Date End Date Sariah Vickers ANP [address] [place] [address] PCP - General Family Medicine 09/23/19 Yuri Pierre, MikeD 230 [place] [address] Pharmacist Internal Medicine 05/05/24 Basilio Hall MD [address] [place] [address] Cardiology 05/17/24 Ron Preciado MD [address] [place] [address] Pulmonary Disease 05/17/24 documented as of this encounter
--- OUTSIDE RECORDS SUMMARY | 2024-10-20 09:59 | XMS_ITS | Encounter Summary ---
Author Organization [employer] Address 75 [facility] 7t [place] [address] Care Team Providers Care Ply Cutter Name Role Phone Sariah Vickers Primary Care Provider [phone] Yuri Pierre PharmD Unavailable [phone] Basilio Hall MD Unavailable [phone] Ron Preciado MD Unavailable [phone] Reason for Visit * Reason Comments Med Refill Encounter Details Date Type Department Care Team (Late st Contact Info) Description 10/03/2023 Refill [facility] 230 [place] [address] Sariah Vickers ANP 230 [place], [place] [phone] Chronic SI joint pain Social History Tobacco [...] Description 11/05/2024 2:30 PM EDT Office Visit [address] [address] Hallie Tapia MD [address] [place] [address] 11/12/2024 9:30 AM EDT Clinical Support [address] [address] Azeb Hall RN 505 [place] [address] 01/11/2025 1:00 PM EST Office Visit [address] [address] Sariah Vickers, KAYLEE [address] [place] [address] 02/03/2025 11:00 AM EST Medication Management [address] [address] Yuri Pierre, PharmD [address] [place] [address] documented as of this encounter Goals Goal Patient Goal Type Associated Problems Recent Progress Patient-Stated? Author Blood Pressure < 140/90 Blood Pressure 140/90(2024 1:50 PM EDT) No Phanis-Dileepl Aida urbina, PharmD Record Your Blood Sugar As Directed General No Phanis-Gambl Veronica urbinasa, PharmD Hemoglobin A1c < 7 Result Component 6.6( 1:54 PM EDT) No Phanis-Gambl Aida urbina, PharmD documented as of this encounter Visit Diagnoses Diagnosis Chronic SI joint pain Disorders of sacrum documented in this encounter Additional Health Concerns Assessment Noted Time PHQ-9 Depression Total Score: 12 024 2:58 PM EDT documented as of this encounter Care Teams Ply Cutter Relationship Specialty Start Date End Date Sariah Vickers ANP 230 [place] [address] PCP - General Family Medicine 09/23/19 Yuri Pierre, MikeD [address] [place] [address] Pharmacist Internal Medicine 05/05/24 Basilio Hall MD 596 [place] [address] Cardiology 05/17/24 Ron Preciado MD [address] [place] [address] Pulmonary Disease 05/17/24 documented as of this encounter
--- OUTSIDE RECORDS SUMMARY | 2024-10-20 09:59 | XMS_ITS | Encounter Summary ---
Author Organization [employer] Address 75 [facility] 7t [place] [address] Care Team Providers Care Lumber Cutter Name Role Phone Sariah Vickers Primary Care Provider [phone] Yuri Pierre PharmD Unavailable [phone] Basilio Hall MD Unavailable [phone] Ron Preciado MD Unavailable [phone] Reason for Visit * Reason Comments Med Refill Encounter Details Date Type Department Care Team (Late st Contact Info) Description 10/03/2023 Refill [facility] 230 [place] [address] Sariah Vickers ANP 230 [place], [place] [phone] Chronic SI joint pain Social History Tobacco [...] Description 11/05/2024 2:30 PM EDT Office Visit [address] [address] Hallie Tapia MD [address] [place] [address] 11/12/2024 9:30 AM EDT Clinical Support [address] [address] Azeb Hall RN 505 [place] [address] 01/11/2025 1:00 PM EST Office Visit [address] [address] Sariah Vickers, KAYLEE [address] [place] [address] 02/03/2025 11:00 AM EST Medication Management [address] [address] Yuri Pierre, PharmD [address] [place] [address] documented as of this encounter Goals Goal [...] documented as of this encounter Care Teams Lumber Cutter Relationship Specialty Start Date End Date Sariah Vickers ANP 230 [place] [address] PCP - General Family Medicine 09/23/19 Yuri Pierre, MikeD [address] [place] [address] Pharmacist Internal Medicine 05/05/24 Basilio Hall MD 596 [place] [address] Cardiology 05/17/24 Ron Preciado MD [address] [place] [address] Pulmonary Disease 05/17/24 documented as of this encounter
--- OUTSIDE RECORDS SUMMARY | 2024-10-20 09:59 | XMS_ITS | Encounter Summary ---
Author Organization [employer] Address 75 [facility] 7t [place] [address] Care Team Providers Care Returned Item Clerk Name Role Phone Sariah Vickers Primary Care Provider [phone] Yuri Pierre PharmD Unavailable [phone] Basilio Hall MD Unavailable [phone] Ron Preciado MD Unavailable [phone] Reason for Visit * Reason Comments Med Refill Encounter Details Date Type Department Care Team (Late st Contact Info) Description 03/26/2022 Refill [facility] MEDICINE 230 [place] [address] Sariah Vickers ANP 230 [place] [address] Social History Tobacco Use Types Packs/Day Years [...] Description 11/05/2024 2:30 PM EDT Office Visit [address] [address] Hallie Tapia MD [address] [place] [address] 11/12/2024 9:30 AM EDT Clinical Support [address] [address] Azeb Hall RN 505 [place] [address] 01/11/2025 1:00 PM EST Office Visit [address] [address] Sariah Vickers ANP [address] [place] [address] 02/03/2025 11:00 AM EST Medication Management [address] [address] uYri Pierre, Dileep [address] [place] [address] documented as of this encounter Visit Diagnoses Not on filedocumented in this encounter Care Teams Returned Item Clerk Relationship Specialty Start Date End Date Sariah Vickers ANP [address] [place] [address] PCP - General Family Medicine 09/23/19 Yuri Pierre, PharmD [address] [place] [address] Pharmacist Internal Medicine 05/05/24 Basilio Hall MD 596 [place] [address] Cardiology 05/17/24 Ron Preciado MD [address] [place] [address] Pulmonary Disease 05/17/24 documented as of this encounter
--- OUTSIDE RECORDS SUMMARY | 2024-10-20 09:59 | XMS_ITS | Encounter Summary ---
Author Organization [employer] Address [address] [place] [address] 7t [place] [address] Care Team Providers Care Manager Infrastructure Name Role Phone Sariah Vickers Primary Care Provider [phone] Yuri Pierre PharmD Unavailable [phone] Basilio Hall MD Unavailable [phone] Ron Preciado MD Unavailable [phone] Reason for Visit * Reason Onset Date Comments Nurse Triage 11/01/2022 Encounter Details Date Type Department Care Team (Late st Contact Info) Description 11/01/2022 Telephone [facility] MEDICINE 230 [place] [address] Sariah Vickers ANP 230 [place] [address] Nurse Triage Social History Tobacco Use Types [...] 11/01/2022 3:51 PM EDT Triage call with Elbert Program Management Specialist ID [id number] Pt reports blood sugars have been high [...] Description 11/05/2024 2:30 PM EDT Office Visit [facility] [address] [place] [address] Hallie Tapia MD 230 [place] [address] 11/12/2024 9:30 AM EDT Clinical Support [facility] [address] [place] [address] Azeb Hall RN 505 [place] [address] 01/11/2025 1:00 PM EST Office Visit [address] [address] Sariah Vickers ANP 230 [place] [address] 02/03/2025 11:00 AM EST Medication Management [address] [address] Yuri Pierre PharmD [address] [place] [address] documented as of this encounter Goals Goal Patient Goal Type Associated Problems Recent Progress Patient-Stated? Author Blood Pressure < 140/90 Blood Pressure 140/90(2024 1:50 PM EDT) No Aida Ragland PharmBear Record Your Blood Sugar As Directed General No Aida Ragland PharmBear Hemoglobin A1c < 7 Result Component 6.6( 1:54 PM EDT) No Aida Ragland PharmBear documented as of this encounter Visit Diagnoses Not on filedocumented in this encounter Care Teams Manager Infrastructure Relationship Specialty Start Date End Date Sariah Vickers ANP [address] [place] [address] PCP - General Family Medicine 09/23/19 Yuri Pierre, PharmD [address] [place] [address] Pharmacist Internal Medicine 05/05/24 Basilio Hall MD [address] [place] [address] Cardiology 05/17/24 Ron Preciado MD [address] [place] [address] Pulmonary Disease 05/17/24 documented as of this encounter
--- OUTSIDE RECORDS SUMMARY | 2024-10-20 09:59 | XMS_ITS | Encounter Summary ---
Author Organization [employer] Address 75 [facility] 7t [place] [address] Care Team Providers Care Channel Executive Name Role Phone Sariah Vickers Primary Care Provider [phone] Yuri Pierre PharmD Unavailable [phone] Basilio Hall MD Unavailable [phone] Ron Preciado MD Unavailable [phone] Reason for Visit * Reason Comments Med Refill Encounter Details Date Type Department Care Team (Late st Contact Info) Description 03/03/2022 Refill [facility] MEDICINE 230 [place] [address] Sariah Vickers ANP 230 [place] [address] Social History Tobacco Use Types Packs/Day Years [...] Description 11/05/2024 2:30 PM EDT Office Visit [address] [address] Hallie Tapia MD [address] [place] [address] 11/12/2024 9:30 AM EDT Clinical Support [address] [address] Azeb Hall RN 505 [place] [address] 01/11/2025 1:00 PM EST Office Visit [address] [address] Sariah Vickers ANP [address] [place] [address] 02/03/2025 11:00 AM EST Medication Management [address] [address] Yuri Pierre, Dileep [address] [place] [address] documented as of this encounter Visit Diagnoses Not on filedocumented in this encounter Care Teams Channel Executive Relationship Specialty Start Date End Date Sariah Vickers ANP [address] [place] [address] PCP - General Family Medicine 09/23/19 Yuri Pierre, PharmD [address] [place] [address] Pharmacist Internal Medicine 05/05/24 Basilio Hall MD 596 [place] [address] Cardiology 05/17/24 Ron Preciado MD [address] [place] [address] Pulmonary Disease 05/17/24 documented as of this encounter
--- OUTSIDE RECORDS SUMMARY | 2024-10-20 09:59 | XMS_ITS | Encounter Summary ---
Author Organization [employer] Address 75 [facility] 7t [place] [address] Care Team Providers Care Site Leader Name Role Phone Sariah Vickers Primary Care Provider [phone] Yuri Pierre PharmD Unavailable [phone] Basilio Hall MD Unavailable [phone] Ron Preciado MD Unavailable [phone] Reason for Visit * Reason Onset Date Comments Med Refill 02/04/2024 Encounter Details Date Type Department Care Team (Late st Contact Info) Description 02/04/2024 Telephone [facility] MEDICINE 230 [place] [address] Sariah Vickers ANP 230 [place], [place] [phone] Med Refill Social History Tobacco Use Types [...] 50 MG tablet To be sent to: [facility] - [place], [place] - [address] [place] [address] documented in this encounter Plan of Treatment Upcoming Encounters Date Type Department Care Team ([facility] st Contact Info) Description 11/05/2024 2:30 PM EDT Office Visit [facility] MED[facility] [address] [place] [address] Hallie Tapia MD [address] [place] [address] 11/12/2024 9:30 AM EDT Clinical Support [address] [address] Azeb Hall RN 505 [place] [address] 01/11/2025 1:00 PM EST Office Visit [address] [address] Sariah Vickers ANP 230 [place] [address] 02/03/2025 11:00 AM EST Medication Management [facility] 230 [place] [address] Yuri Pierre, PharmD 230 [place] [address] documented as of this encounter Goals Goal [...] documented as of this encounter Care Teams Site Leader Relationship Specialty Start Date End Date Sariah Vickers ANP [address] [place] [address] PCP - General Family Medicine 09/23/19 Yuri Pierre, PharmD 230 [place] [address] Pharmacist Internal Medicine 05/05/24 Basilio Hall MD 596 [place] [address] Cardiology 05/17/24 Ron Preciado MD [address] [place] [address] Pulmonary Disease 05/17/24 documented as of this encounter
--- OUTSIDE RECORDS SUMMARY | 2024-10-20 09:59 | XMS_ITS | Encounter Summary ---
Author Organization [employer] Address 75 [facility] 7t [place] [address] Care Team Providers Care Cloth Dye Range Operator Name Role Phone Sariah Vickers Primary Care Provider Yuri Pierre PharmD Unavailable [phone] Basilio Hall MD Unavailable [phone] Ron Preciado MD Unavailable [phone] Reason for Visit * Reason Comments Med Refill Encounter Details Date Type Department Care Team (Late st Contact Info) Description 09/13/2022 Refill [facility] [address] [place] [address] Sariah Vickers ANP 230 [place] [address] Severe persistent allergic asthma without complication Social [...] Description 11/05/2024 2:30 PM EDT Office Visit [address] [address] Hallie Tapia MD [address] [place] [address] 11/12/2024 9:30 AM EDT Clinical Support [address] [address] Azeb Hall RN 505 [place] [address] 01/11/2025 1:00 PM EST Office Visit [address] [address] Sariah Vikcers ANP [address] [place] [address] 02/03/2025 11:00 AM EST Medication Management [address] [address] Yuri Pierre PharmD [address] [place] [address] documented as of this encounter Visit Diagnoses Diagnosis Severe persistent allergic asthma without complication documented in this encounter Care Teams Cloth Dye Range Operator Relationship Specialty Start Date End Date Sariah Vickers ANP [address] [place] [address] PCP - General Family Medicine 09/23/19 Yuri Pierre, PharmD [address] [place] [address] Pharmacist Internal Medicine 05/05/24 Basilio Hall MD 596 [place] [address] Cardiology 05/17/24 Ron Preciado MD [address] [place] [address] Pulmonary Disease 05/17/24 documented as of this encounter
--- OUTSIDE RECORDS SUMMARY | 2024-10-20 09:59 | XMS_ITS | Encounter Summary ---
Author Organization [employer] Address [facility] 7t [place] [address] Care Team Providers Care Hogshead Head Matcher Name Role Phone Sariah Vickers Primary Care Provider [phone] Yuri Pierre PharmD Unavailable [phone] Basilio Hall MD Unavailable [phone] Ron Preciado MD Unavailable [phone] Reason for Visit * Reason Comments Med Refill Encounter Details Date Type Department Care Team (Late st Contact Info) Description 06/17/2024 Refill [facility] [address] [place] [address] Sariah Vickers ANP [address] [place], [place] [phone] Neck pain Social History Tobacco Use Types [...] Description 11/05/2024 2:30 PM EDT Office Visit [address] [address] Hallie Tapia MD [address] [place] [address] 11/12/2024 9:30 AM EDT Clinical Support [address] [address] Azeb Hall RN [address] [place] [address] 01/11/2025 1:00 PM EST Office Visit [address] [address] Sariah Vickers, KAYLEE [address] [place] [address] 02/03/2025 11:00 AM EST Medication Management [address] [address] Yuri Pierre, PharmD [address] [place] [address] documented as of this encounter Goals Goal Patient Goal Type Associated Problems Recent Progress Patient-Stated? Author Blood Pressure < 140/90 Blood Pressure 140/90(2024 1:50 PM EDT) No Aida Ragland, PharmD Record Your [...] documented as of this encounter Care Teams Hogshead Head Matcher Relationship Specialty Start Date End Date Sariah Vickers ANP [address] [place] [address] PCP - General Family Medicine 09/23/19 Yuri Pierre, MikeD [address] [place] [address] Pharmacist Internal Medicine 05/05/24 Basilio Hall MD [address] [place] [address] Cardiology 05/17/24 Ron Preciado MD [address] [place] [address] Pulmonary Disease 05/17/24 documented as of this encounter
--- OUTSIDE RECORDS SUMMARY | 2024-10-20 09:59 | XMS_ITS | Encounter Summary ---
Author Organization [employer] Address 75 [facility] 7t [place] [address] Care Team Providers Care Lime Plant Operator Name Role Phone Sariah Vickers Primary Care Provider Yuri Pierre PharmD Unavailable [phone] Basilio Hall MD Unavailable [phone] Ron Preciado MD Unavailable [phone] Encounter Details Date Type Department Care Team (Latest Contact Info) Description 06/20/2021 Abstract [facility] CONVERSIONS Dental, Provider, DDS Social History [...] Description 11/05/2024 2:30 PM EDT Office Visit [facility] MEDICINE [address] [place] [address] Hallie Tapia MD [address] [place] [address] 11/12/2024 9:30 AM EDT Clinical Support [facility] MEDICINE [address] [place] [address] Azeb Hall RN 505 [place] [address] 01/11/2025 1:00 PM EST Office Visit [address] [address] Sariah Vickers ANP [address] [place] [address] 02/03/2025 11:00 AM EST Medication Management [address] [address] Yuri Pierre, PharmBear [address] [place] [address] documented as of this encounter Visit Diagnoses Not on filedocumented in this encounter Care Teams Lime Plant Operator Relationship Specialty Start Date End Date Sariah Vickers ANP [address] [place] [address] PCP - General Family Medicine 09/23/19 Yuri Pierre, PharmD [address] [place] [address] Pharmacist Internal Medicine 05/05/24 Basilio Hall MD 6 [place] [address] Cardiology 05/17/24 Ron Preciado MD [address] [place] [address] Pulmonary Disease 05/17/24 documented as of this encounter
--- OUTSIDE RECORDS SUMMARY | 2024-10-20 09:59 | XMS_ITS | Encounter Summary ---
Author Organization [employer] Address 75 [facility] 7t [place] [address] Care Team Providers Care Mail Officer Name Role Phone Sariah Vickers Primary Care Provider [phone] Yuri Pierre PharmD Unavailable [phone] Basilio Hall MD Unavailable [phone] Ron Preciado MD Unavailable [phone] Encounter Details Date Type Department Care Team (Late st Contact Info) Description 02/05/2022 Abstract [facility] MEDICINE [address] [place] [address] Sariah Vickers ANP [address] [place] [address] Social History Tobacco Use Types Packs/Day Years [...] Description 11/05/2024 2:30 PM EDT Office Visit [address] [address] Hallie Tapia MD [address] [place] [address] 11/12/2024 9:30 AM EDT Clinical Support [address] [address] Azeb Hall RN [address] [place] [address] 01/11/2025 1:00 PM EST Office Visit [address] [address] Sariah Vickers ANP [address] [place] [address] 02/03/2025 11:00 AM EST Medication Management [address] [address] Yuri Pierre, MikeD [address] [place] [address] documented as of this encounter Visit Diagnoses Not on filedocumented in this encounter Care Teams Mail Officer Relationship Specialty Start Date End Date Sariah Vickers ANP [address] [place] [address] PCP - General Family Medicine 09/23/19 Yuri Pierre, PharmD 230 [place] [address] Pharmacist Internal Medicine 05/05/24 Basilio Hall MD [address] [place] [address] Cardiology 05/17/24 Ron Preciado MD [address] [place] [address] Pulmonary Disease 05/17/24 documented as of this encounter
--- OUTSIDE RECORDS SUMMARY | 2024-10-20 09:59 | XMS_ITS | Encounter Summary ---
Author Organization [employer] Address 75 [facility] 7t [place] [address] Care Team Providers Care Coffee Taster Name Role Phone Sariah Vickers Primary Care Provider [phone] Yuri Pierre PharmD Unavailable [phone] Basilio Hall MD Unavailable [phone] Ron Preciado MD Unavailable [phone] Reason for Visit * Reason Comments Med Refill Encounter Details Date Type Department Care Team (Late st Contact Info) Description 03/09/2024 Refill [facility] [address] [place] [address] Sariah Vickers ANP [address] [place] [address] Neck pain Social History Tobacco Use Types [...] Description 11/05/2024 2:30 PM EDT Office Visit [address] [address] Hallie Tapia MD [address] [place] [address] 11/12/2024 9:30 AM EDT Clinical Support [address] [address] Azeb Hall RN [address] [place] [address] 01/11/2025 1:00 PM EST Office Visit [address] [address] Sariah Vickers, KAYLEE [address] [place] [address] 02/03/2025 11:00 AM EST Medication Management [address] [address] Yuri Pierre, PharmD [address] [place] [address] documented as of this encounter Goals Goal [...] documented as of this encounter Care Teams Coffee Taster Relationship Specialty Start Date End Date Sariah Vickers ANP [address] [place] [address] PCP - General Family Medicine 09/23/19 Yuri Pierre, MikeD [address] [place] [address] Pharmacist Internal Medicine 05/05/24 Basilio Hall MD [address] [place] [address] Cardiology 05/17/24 Ron Preciado MD [address] [place] [address] Pulmonary Disease 05/17/24 documented as of this encounter
--- OUTSIDE RECORDS SUMMARY | 2024-10-20 09:59 | XMS_ITS | Encounter Summary ---
Author Organization [employer] Address 75 [facility] 7t [place] [address] Care Team Providers Care Rigging Supervisor Name Role Phone Sariah Vickers Primary Care Provider [phone] Yuri Pierre PharmD Unavailable [phone] Basilio Hall MD Unavailable [phone] Ron Preciado MD Unavailable [phone] Reason for Visit * Reason Comments Med Refill Patient [facility] hasn't finished her Medbox due to missing refill for medication Gabapetin . Encounter Details Date Type Department Care Team (Late st Contact Info) Description 10/03/2023 Refill [facility] 230 [place], [place] [phone] Sariah Vickers ANP [address] [place], [place] [phone] Chronic SI joint pain Social History Tobacco [...] the past 12 months, has t he [employer] gas, oil or water company threatened to [...] Description 11/05/2024 2:30 PM EDT Office Visit [address] [address] Hallie Tapia MD [address] [place] [address] 11/12/2024 9:30 AM EDT Clinical Support [address] [address] Azeb Hall RN 505 [place] [address] 01/11/2025 1:00 PM EST Office Visit [address] [place] [address] Sariah Vickers ANP [address] [place] [address] 02/03/2025 11:00 AM EST Medication Management [facility] [address] [place] [address] Yuri Pierre PharmD [address] [place] [address] documented as of this encounter Goals Goal [...] documented as of this encounter Care Teams Rigging Supervisor Relationship Specialty Start Date End Date Sariah Vickers ANP [address] [place] [address] PCP - General Family Medicine 09/23/19 Yuri Pierre, PharmD [address] [place] [address] Pharmacist Internal Medicine 05/05/24 Basilio Hall MD [address] [place] [address] Cardiology 05/17/24 Ron Preciado MD [address] [place] [address] Pulmonary Disease 05/17/24 documented as of this encounter
--- OUTSIDE RECORDS SUMMARY | 2024-10-20 10:00 | XMS_ITS | Clinical Summary ---
Author Organization [facility] Address [address] [place] [address] Phone Care Team Providers Care Rn Bsn Name Role Phone Sariah Vickers NP Primary Care Provider [phone] Social History Tobacco Use Types Packs/Day Years [...] 01/29/2022 Social Influencers of Health Screening 01/29/2022 Depression Screening 02/18/2024 COVID-19 Vaccine (1 - 2023-2 5 season) 2024 Influenza Vaccine (#1) 2024 11/09/2018 DTaP,Tdap,and Td [...] age to complete this topic Care Teams Rn Bsn Relationship Specialty Start Date End Date Sariah Vickers NP [address] [place] [phone] PCP - General 12/03/23
--- OUTSIDE RECORDS SUMMARY | 2024-10-20 10:00 | XMS_ITS | Encounter Summary ---
Author Organization [employer] Address 75 [facility] 7t [place] [address] Care Team Providers Care Supervisor Concrete Stone Finishing Name Role Phone Sariah Vickers Primary Care Provider [phone] Yuri Pierre PharmD Unavailable [phone] Basilio Hall MD Unavailable [phone] Ron Preciado MD Unavailable [phone] Reason for Visit * Reason Comments Med Refill Encounter Details Date Type Department Care Team (Late st Contact Info) Description 11/14/2023 Refill [facility] [address] [place] [address] Sariah Vickers ANP 230 [place] [address] Neck pain Social History Tobacco Use Types [...] Description 11/05/2024 2:30 PM EDT Office Visit [address] [address] Hallie Tapia MD [address] [place] [address] 11/12/2024 9:30 AM EDT Clinical Support [address] [address] Azeb Hall RN 505 [place] [address] 01/11/2025 1:00 PM EST Office Visit [address] [address] Sariah Vickers, ANP [address] [place] [address] 02/03/2025 11:00 AM EST Medication Management [address] [address] Yuri Pierre, PharmD [address] [place] [address] documented as of this encounter Goals Goal [...] as of this encounter Care Teams Supervisor Concrete Stone Finishing Relationship Specialty Start Date End Date Sariah Vickers ANP [address] [place] [address] PCP - General Family Medicine 09/23/19 Yuri Pierre PharmD [address] [place] [address] Pharmacist Internal Medicine 05/05/24 Basilio Hall MD [address] [place] [address] Cardiology 05/17/24 Ron Preciado MD [address] [place] [address] Pulmonary Disease 05/17/24 documented as of this encounter
--- OUTSIDE RECORDS SUMMARY | 2024-10-20 10:00 | XMS_ITS | Encounter Summary ---
Author Organization [employer] Address 75 [facility] 7t [place] [address] Care Team Providers Care Sales Operations Assistant Name Role Phone Sariah Vickers Primary Care Provider [phone] Yuri Pierre PharmD Unavailable [phone] Basilio Hall MD Unavailable [phone] Ron Preciado MD Unavailable [phone] Reason for Visit * Reason Onset Date Comments Nurse Triage 01/14/2023 Encounter Details Date Type Department Care Team (Late st Contact Info) Description 01/14/2023 Telephone [facility] MED[facility] 230 [place] [address] Sariah Vickers ANP [address] [place] [address] Nurse Triage Social History Tobacco Use Types [...] 01/14/2023 9:26 AM EST Called pt. Via [employer] service administrator [phone] Kelly. Pt. States that she has been having a fire feeling in her legs. Its like A burning that goes down her legs . Pt. Unsure if it because of her Diabetes. Pt. Went to [facility] ED for pain on her left side [...] at 10am. Will send note to clinical ostomy care nurse to have note put in chart . [...] Severe pain now, pt was seen at [facility] on 01/13 for pain in leg. Pt is still symptomatic The caller accepted this outcome Please contact pt at [phone] (cota needed) documented in this encounter Plan of Treatment Upcoming Encounters Date Type Department Care Team (Late st Contact Info) Description 11/05/2024 2:30 PM EDT Office Visit [address] [address] Hallie Tapia MD [address] [place] [address] 11/12/2024 9:30 AM EDT Clinical Support [address] [address] Azeb Hall RN 505 [place] [address] 01/11/2025 1:00 PM EST Office Visit [address] [address] Sariah Vickers ANP [address] [place] [address] 02/03/2025 11:00 AM EST Medication Management [address] [address] Yuri Pierre, MikeD [address] [place] [address] documented as of this encounter Goals Goal Patient Goal Type Associated Problems Recent Progress Patient-Stated? Author Blood Pressure < 140/90 Blood Pressure 140/90(2024 1:50 PM EDT) No Aida Ragland PharmD Record Your Blood Sugar As Directed General No Aida Ragland PharmD Hemoglobin A1c < 7 Result Component 6.6(08/28/202 5 1:54 PM EDT) No Aida Ragland PharmD documented as of this encounter Visit Diagnoses Not on filedocumented in this encounter Care Teams Sales Operations Assistant Relationship Specialty Start Date End Date Sariah Vickers ANP [address] [place] [address] PCP - General Family Medicine 09/23/19 Yuri Pierre, MikeD [address] [place] [address] Pharmacist Internal Medicine 05/05/24 Basilio Hall MD [address] [place] [address] Cardiology 05/17/24 Ron Preciado MD [address] [place] [address] Pulmonary Disease 05/17/24 documented as of this encounter
--- OUTSIDE RECORDS SUMMARY | 2024-10-20 10:00 | XMS_ITS | Clinical Summary ---
Author Organization [employer] Address [address] 7[address] [place] [address] Care Team Providers Care Assistant Clinical Nurse Manager Name Role Phone Anthony Ruiz KAYLEE Primary Care Provider [phone] Yuri Pierre PharmD Unavailable [phone] Basilio Hall MD Unavailable [phone] Ron Preciado MD Unavailable [phone] Allergies Active Allergy Reactions Criticality Noted [...] mouth in the morning. Active Lactobacillus-In ulin ([facility]) capsule 023 Active Xolair 150 [...] Type 2 diabetes mellitus with hyperlipidemia (CMS/HCC) ([facility]) USE DIRECTED THREE TIMES DAILY [...] 90 tablet 4 025 Active Continuous Glucose Supervisor Area (FreeStyle Jalil 3 Webb) device 1 each Once per day. Use [...] cations:Type 2 diabetes mellitus with hyperlipidemia (CMS/HCC) ([facility]) Inject 0.5 mg under the skin 1 (one) time per week. 1 each 025 Active insulin lispro (HumaLOG KWIKPEN) 100 UNIT/ML injectionIndicat ions:Type 2 diabetes mellitus with hyperlipidemia (CMS/HCC) ([facility]) Take 4-6 units as needed [...] neuropathy, with long-term current use of insulin ([facility]) Administer 3 mg into affected [...] miscIndications: Type 2 diabetes mellitus with hyperglycemia ([facility]) TEST BLOOD SUGAR FOUR TIMES [...] BY MOUTH EVERY MORNING 30 tablet 1 08/02/2 025 2024 Discontinued Active Problems Problem Noted [...] depressive d isorder 09/25/2023 Assessment & Plan (10/19/2024 5:45 PM EDT): During IBH Consult Nuvia presenting with depressed mood, crying spells , irritable mood, isolating, changes in sleep difficulty falling asleep and difficulty staying asleep , psychomotor retardation, inappropriate/excessive guilt , difficulty concentrating, indecisiveness and Flashbacks, Intrusive trauma memories and thoughts, Avoidance of trauma reminders/triggers, Increased startle response, Isolation from normal social supports, and Fear of social judgement; for a period of 18+ mo, for most or all symptoms in the context of family issues and illness or family illness. Pt with PTSD diagnosis per her medical chart and presenting with sxs describe above. She is currently connected with MH services through [facility]. Pt needing additional support due to her son's substance abuse which is causing interpersonal conflicts within her family. Pt feels emotionally exhausted and afraid of things that are out of her control. Assessment & Plan (10/01/2023 3:43 PM EDT): [...] family. She will continue services with [facility] for OP therapy and psychiatry services. clinician will be available if needed during next medical appointment. PLAN: (check all that apply) Continue with current services (defined as services in the past 12 months) . Pt is engaged with OP therapy and psychiatry services with [facility] @ [facility] Excessive attrition of teeth, generalized 2023 [...] family. She will continue services with [facility] for OP therapy and psychiatry services. clinician will be available if needed during next medical appointment. PLAN: (check all that apply) Continue with current services (defined as services in the past 12 months) . Pt is engaged with OP therapy and psychiatry services with [facility] @ [facility] Fibromyalgia 07/31/2022 Asthma-COPD overlap syndrome 07/31/2022 [...] for possible plantar fasciitis -referred today to hostess party sales representative x ongoing discomfort -may need orthopedic shoes [...] individual therapy and psychiatry with N at [facility]. Sees psych provider every two months and therapist bi-weekly. Pt will reach out to clinician as needed. Assessment & Plan (04/10/2023 11:08 AM EST): PLAN: (check all that apply) Behavioral Health Integration Plan Patient Self Plan Patient to reach out to [facility] team as needed Assessment & Plan [...] organization. Date Type Department Care Team Description 10/19/2024 Refill [facility] MED & PEDS [address] [place] [address] Anthony Ruiz ANP Cervicalgia 10/14/2024 1:30 PM EDT Office Visit [facility] MEDICINE [address] [place] [phone] Anthony Ruiz ANP Type 2 diabetes mellitus with hyperlipidemia (CMS/HCC) ([facility]/HCC) (Primary Dx); Chronic pain of both knees 10/14/2024 Travel 10/13/2024 10:40 AM EDT Office Visit [facility] W[facility]IN [facility] [address] [place] [address] Chava Presley MD Essential hypertension (Primary Dx) 10/13/2024 Travel 10/12/2024 Orders Only GENERIC EXTERNAL DATA DEPARTMENT Provider, Generic External Data 10/09/2024 Refill [facility] [address] [place] [address] Anthony Ruiz ANP Severe persistent asthma without complication 10/06/2024 Travel 10/04/2024 Refill [facility] [address] [place] [address] Zakia Uriostegui NP Type 2 diabetes mellitus with hyperglycemia ([facility]/HCC) 10/01/2024 11:00 AM EDT Clinical Support [facility] [address] [place] [address] Azeb Hall, RN Neck pain 10/01/2024 Telephone [facility] MED & PEDS [address] [place] [address] Azeb Hall RN 10/01/2024 Travel 09/30/2024 Telephone [facility] [address] [place] [phone] Anthony Ruiz ANP Referral 09/30/2024 Telephone [facility] [address] [place] [phone] Anthony Ruiz ANP Referral 09/30/2024 Refill [facility] [address] [place] [phone] Anthony Ruiz ANP Chronic SI joint pain 09/28/2024 Orders Only [facility] [address] [place] [phone] Anthony Ruiz ANP 09/25/2024 Refill [facility] [address] [place] [phone] Anthony Ruiz ANP Chronic SI joint pain; Essential hypertension; Severe persistent asthma without complication 09/24/2024 2:00 PM EDT Office Visit [facility] OPTOMETRY [address] [place] [address] Luisa Martinez, OD Diabetes type 2, no ocular involvement ([facility]) (Primary Dx); Mixed type age-related cataract, both eyes; Lesion of left lower eyelid; Presbyopia 09/24/2024 Travel 09/19/2024 Refill [facility] MED & PEDS [address] [place] [address] Debra Faye MD Cervicalgia 09/16/2024 Refill [facility] [address] [place] [address] Zakia Uriostegui NP Type 2 diabetes mellitus with hyperglycemia ([facility]); Neck pain 09/03/2024 Telephone [facility] [address] [place] [phone] Anthony Ruiz ANP Appointment Request 09/02/[address] [address] Anthony Ruiz ANP Durable Medical Equipment 08/26/[address] [phone] Anthony Ruiz ANP Durable Medical Equipment 08/23/2024 Refill [facility] MED [facility] PEDS [address] [place] [address] Anthony Ruiz ANP Type 2 diabetes mellitus with hyperglycemia ([facility]) 08/21/2024 Refill [facility] MED & PEDS [address] [place] [address] Anthony Ruiz ANP Cervicalgia; Chronic bilateral low back pain, unspecified whether sciatica present 08/20/2024 Refill [facility] MED[facility] [address] [place] [phone] Anthony Ruiz ANP Chronic bilateral low back pain, unspecified whether sciatica present 08/19/2024 9:00 AM EDT Office Visit [facility] [address] [place] [phone] Ramon Damon MD Viral URI with cough 08/16/2024 Refill [facility] [address] [place] [phone] Debra Faye MD Neck pain 08/13/2024 Orders Only [address] [address] Leora Hoffman RN 08/11/2024 4:00 PM EDT Office Visit [facility] [address] [place] [phone] Brittney Nava MD Constipation, unspecified constipation type (Primary Dx) 08/11/2024 Travel 08/10/[address] [address] Anthony Ruiz ANP Prior Authorization 08/04/2024 1:00 PM EDT Office Visit [facility] ADULT DENTAL [address] [place] [phone] Nuvia Duarte Dental plaque (Primary Dx); Gingival recession, generalized; Missing teeth, acquired; Excessive attrition of teeth, generalized 08/04/2024 Travel 08/02/[address] [address] Anthony Ruiz ANP Referral 07/31/2024 Refill [facility] [address] [place] [phone] Anthony Ruiz ANP Essential hypertension 07/29/[address] [address] Anthony Ruiz ANP Med Refill 07/28/[address] [address] Anthony Ruiz ANP ranjeet recall 07/28/2024 Refill [facility] [address] [place] [phone] Anthony Ruiz ANP Neck pain 07/27/2024 Orders Only GENERIC EXTERNAL DATA DEPARTMENT Provider, Generic External Data 07/24/2024 Refill [facility] MED & PEDS [address] [place] [address] Anthony Ruiz ANP Cervicalgia 07/22/2024 9:20 AM EDT Office Visit [facility] [address] [place] [phone] Samantha Kumar DO COPD exacerbation ([facility]) (Primary Dx) 07/22/2024 Travel 07/21/2024 Refill [facility] MED & PEDS [address] [place] [address] Anthony Ruiz ANP Type 2 diabetes mellitus with diabetic neuropathy, with long-term current use of insulin ([facility]) from Last 3 Months Immunizations Immunization Administration [...] Sign Reading Time Taken Comments Blood Pressure 140/90 10/14/2024 1:50 PM EDT Pulse 87 10/14/2024 1:50 PM EDT Temperature 36.6 C (97.9 F) 10/14/2024 1:50 PM EDT Respiratory Rate 20 10/14/2024 1:50 PM EDT Oxygen Saturation 98% 10/14/2024 1:50 PM EDT Inhaled Oxygen Concentration - - Weight 92.2 kg (203 lb 3.2 oz) 10/14/2024 1:50 P M EDT Height 160 cm (5' 3 ) 10/14/2024 1:50 PM EDT Body Mass Index 36 10/14/2024 1:50 PM EDT Plan of Treatment Upcoming Encounters Date Type Department Care Team (Late st Contact Info) Description 11/05/2024 2:30 PM EDT Office Visit [facility] MED[facility]INE [address] [place] [phone] Hallie Tapia MD [address] [place] [phone] 11/12/2024 9:30 AM EDT Clinical Support [facility] [address] [place] [phone] Azeb Hall RN [address] [place] [address] 01/11/2025 1:00 PM EST Office Visit [facility] [address] [place] [address] [phone] Anthony Ruiz ANP [address] [place], [place] [phone] 02/03/2025 11:00 AM EST Medication Management [facility] [address] [place] [address] [phone] Yuri Pierre, PharmD [address] [place], [place] [phone] Health Maintenance Due Date Last Done Comments CT Colonography 1960 FIT DNA/Cologuard 1960 FIT 1960 FOBT 1960 Sigmoidoscopy 1960 Alcohol/Substance Use Screening 1972 Hepatitis A Vaccines (1 of 2 - Risk 2-dose series) 08/06/1979 Pap Smear 1981 Diabetes: Foot Exam 06/12/2023 06/11/2022, 06/11/2022, 06/11/2022, Additional history exists Influenza Vaccine (#1) 2024 , 10/25/2022, 11/22/2021, Additional history exists Diabetes: Urine Protein Screening 01/01/2025 01/02/2024, 01/22/2022, 02/12/2021, Additional history exists Dental Oral Exam 02/04/2025 08/04/2024, , 08/12/2022 Dental Prophylaxis 02/04/2025 08/04/2024, 0 10/06/2023, 09/18/2022, Additional history exists Mammogram 04/12/2025 04/12/2024, 03/21, 03/20/2023, Additional history exists Diabetes: Hemoglobin A1C 04/16/2025 025, 10/12/2024, 06/15/2024, Additional history exists Depression Monitoring 04/18/2025 10/19/2024, 025 Cervical Cancer Screening 05/09/2025 HPV/Cotest 05/09/2025 05/09/2020, 05/09/2020 Lipid Panel 06/18/2025 06/18/2024, 12/18, 09/05/2022, Additional history exists Disability Screening 07/15/2025 07/15/2024 SDOH Screening 07/15/2025 07/15/2024 Dental X-Ray: Bitewings 2025 08/05/19 25, 09/12/2023, 08/12/2022 Tobacco Screening 10/14/2025 10/14/2024 Dental X-Ray: Full Mouth 09/12/2026 09/12/2023, 09/18 [...] 1:54 PM EDT) No Aida Ragland PharmD Procedures Procedure Name Priority Date/Time Associated Diagnosis Comments POCT GLYCATED HEMOGLOBIN, TOTAL Routine 10/14/2024 1:54 PM EDT Type 2 diabetes mellitus with hyperlipidemia ([facility]/HCC) ([facility]) POCT GLUCOSE Routine 10/14/2024 1:52 PM EDT Type 2 diabetes mellitus with hyperlipidemia ([facility]/HCC) ([facility]) ACTIN (SMOOTH MUSCLE) ANTIBODY (IGG) Routine 10/12/2024 2:10 PM EDT T4, FREE Routine 10/12/2024 2:10 PM EDT HEMOGLOBIN A1C Routine 10/12/2024 2:10 PM EDT TSH W/REFLEX TO FT4 Routine 10/12/2024 2 :10 PM EDT FERRITIN Routine 10/12/2024 2:10 PM EDT LIPASE Routine 10/12/2024 2:10 PM EDT AMYLASE Routine 10/12/2024 2:10 PM EDT C-REACTIVE PROTEIN Routine 10/12/2024 2: 10 PM EDT PROTHROMBIN TIME-INR Routine 10/12/2024 2:10 PM EDT LDCT LUNG SCREENING Routine 10/09/2024 1 :18 [...] 07/22/2024 9:15 AM EDT COPD exacerbation (CMS/HCC) LIPID PANEL, STANDARD Routine 06/18/2024 10:18 AM EDT Type 2 diabetes mellitus with hyperlipidemia (CMS/HCC) BI MAMMOGRAM SCREENING TOMOSYNTHESIS BILATERAL Routine 04/12/2024 [...] Relevant to Health Maintenance Results * (ABNORMAL) POCT HGB A1C (10/14/2024 1:54 PM EDT) Pathologist [facility] [place] Hemoglobin A1C 6.6(A) 4.0 - 5.7 % QC Media Lot # [id number] Lot# Expiration Date [id number] Blood 10/14/2024 1:54 PM EDT Antohny PAGE POINT OF CARE TEST ENTER/EDIT OR DERABLES Final Result * POCT Glucose (10/14/2024 1:52 PM EDT) Pathologist [facility] [place] Glucose Blood, POC 121 60 - 200 mg/dL QC Media Lot # [id number] Lot# Expiration Date [id number] Blood Capillary blood specimen / Unknown 10/14/2024 1:52 PM EDT Anthony PAGE POINT OF CARE TEST ENTER/EDIT OR DERABLES Final Result * (ABNORMAL) TSH with Reflex to Free T4 (10/12/2024 2:10 PM EDT) Pathologist [facility] [place] TSH reflex Free T4 6.80(H) 0.32 - 4.0 uIU/mL [facility] 10/12/2024 2:10 PM EDT 10/12/2024 2:10 PM EDT Generic External Data Provider LAB BLOOD ORDERAB LES Final Result [facility] [address] [place] [phone] * (ABNORMAL) Actin (Smooth Muscle) Antibody (IgG) (10/12/2024 2:10 PM EDT) Smooth Muscle Antibody 51(A) <20 U [facility] Comment:Reference Range: <20 U: Negative>or=20 [...] with AIH type 1.THIS TEST WAS PERFORMED AT:[facility] [id number] [place] [id number] W. MASON,MD,PHD 10/12/2024 2:10 PM EDT 10/12/2024 2:10 PM EDT us Generic External Data Provider LAB BLOOD ORDERAB LES Final Result [facility] [address] [place] [phone] * Prothrombin Time-INR (10/12/2024 2:10 PM EDT) Prothrombin Time 10.9 10.9 - 12.4 SEC [facility] INTERNATIONAL NORM RATIO 1.0 0.9 - 1.1 [facility] Comment:INTERNATIONAL NORMAL IZED RATIO (INR) REFERENCE RANGES Reference RangeFor patients not on anticoagulant therapy: 0.9 - 1.1INR ranges for oral anticoagulanttherapy:For prevention and treatment of venous thrombosis and pulmonary embolism: 2.0 - 3.0For acute myocardial infarction with aspirin therapy: 2.0 - 3.0For acute myocardial infarction without aspirin therapy: 3.0 - 4.0For patients with mechanical prosthetic heart valves: 2.5 - 3.5 10/12/2024 2:10 PM EDT 10/12/2024 2:10 PM EDT us Generic External Data Provider LAB BLOOD ORDERAB LES Final Result Performing Organization Address [facility] Co de Phone Number [facility] [address] [place] [phone] * C-reactive Protein (10/12/2024 2:10 PM EDT) C Reactive Protein 0.31 < or = 0.50 mg/dL [facility] 10/12/2024 2:10 PM EDT 10/12/2024 2:10 PM EDT Generic External Data Provider LAB BLOOD ORDERAB LES Final Result Performing Organization Address [facility] de Phone Number [facility] [address] [place] [phone] * T4, Free (10/12/2024 2:10 PM EDT) Free T4 (Free Thyroxine) 0.99 0.71 - 1.85 ng/dL [facility] 10/12/2024 2:10 PM EDT 10/12/2024 2:10 PM EDT us Generic External Data Provider LAB BLOOD ORDERAB LES Final Result Performing Organization Address [facility] Co de Phone Number [facility] [address] [place] [phone] * Lipase (10/12/2024 2:10 PM EDT) Lipase 20 8 - 78 U/L [facility] 10/12/2024 2:10 PM EDT 10/12/2024 2:10 PM EDT us Generic External Data Provider LAB BLOOD ORDERAB LES Final Result Performing Organization Address [facility] Co de Phone Number [facility] [address] [place] [phone] * (ABNORMAL) Hemoglobin A1c (10/12/2024 2:10 PM EDT) Hemoglobin A1c 6.5(H) <6.0 % [facility] Comment:Hemoglobin A1C Refer ence Range Adults: 4.8 - 6.0 % Non diabetic: < 6.0 % Goal: < 7.0 %Additional Action Suggested: > 8.0 %Note: Hemoglobin A1c results are invalid for patients with abnormal amounts of HbF. Blood transfusions may impact the HbA1c concentration in the patient sample. Estimated Average Glucose 140 mg/dL [facility] Comment:eAG = Estimated ave rage glucose which is %A1C expressed asaverage glucose, using the formula of the X8R-JwcovqiErruoxb Glucose study (ADAG), Diabetes Care, Vol.31,#8,Sep. 2007 10/12/2024 2:10 PM EDT 10/12/2024 2:10 PM EDT Generic External Data Provider LAB BLOOD ORDERAB LES Final Result Performing Organization Address [facility]/ZIP Co de Phone Number [facility] [address] [place] [phone] * Ferritin (10/12/2024 2:10 PM EDT) Ferritin 69 10 - 250 ng/mL [facility] 10/12/2024 2:10 PM EDT 10/12/2024 2:10 PM EDT Generic External Data Provider LAB BLOOD ORDERAB LES Final Result Performing Organization Address [facility]/ZIP Co de Phone Number [facility] [address] [place] [phone] * Amylase (10/12/2024 2:10 PM EDT) Amylase 36 28 - 100 U/L [facility] 10/12/2024 2:10 PM EDT 10/12/2024 2:10 PM EDT us Generic External Data Provider LAB BLOOD ORDERAB LES Final Result [facility] [address] [place] [phone] * CT Lung Screening Low dose (10/09/2024 1:18 PM EDT) Anatomical Region Laterality Modality Lung Computed Tomogra phy 10/09/2024 1:18 PM EDT Narrative 10/09/2024 1:20 PM EDT [address] [address] [address] Scan Report Signed Patient: Nuvia Fay MR #: [id number] : 1960 Acct:[id number] Age/Sex: 64 / F ADM Date: 10/08/24 Loc: HO.CT Attending Dr: Ron Preciado MD Ordering Physician: Ron Preciado MD Date of Service: 10/08/24 Procedure(s): CT lung screening Accession Number(s): [id number] cc: Ron Preciado MD; ANTHONY RUIZ NP Report Number: [id number]: Total DLP = 64.00 mGy-cm CLINICAL HISTORY: [...] 10/09/24 1319 DD/ 1318 TD/TT: 10/09/24 1318 [employer] Instrument [employer] Tool Maker: Procedure Note Donotuseinterpreter, Image - 10/09/[address] [place] [address] [address] Scan Report Signed Patient: Nuvia Fay EMR #: [id number] : 1960cct:[id number] Age/Sex: 64 / FADM Date: 10/08/24 Loc: HO.CT Attending Dr: Ron Preciado MD Ordering Physician: Ron Preciado MD Date of Service: 10/08/24 Procedure(s): CT lung screening Accession Number(s): [id number] cc: Ron Preciado MD; ANTHONY RUIZ NP Report Number: [id number]: Total DLP = 64.00 mGy-cm CLINICAL HISTORY: [...] Myrick MD in OV> 10/09/24 1319 DD/ 17 TD/TT: 10/09/241317 [employer] Instrument [employer] Tool Maker: [facility] External Provider IMG CT PROCEDURES Edited [...] - 10/01/2024 10:43 AM EDT .UTOX cup Lot#[id number] Exp. 11/23/25 Internal Pass Control Anthony PAGE POINT OF CARE TEST ENTER/EDIT OR DERABLES Final Result * Influenza A (ID NOW Rapid Molecular) (08/19/2024 9:20 AM EDT) Only the most recent of2 resultswithin the time period is included. Influenza A Negative Negative, Indeterminate [facility] Swab 08/19/2024 9:20 AM EDT Ramon Damon MD POINT OF CARE TEST ENTER/EDIT OR DERABLES Final Result Performing Organization Address [facility] Co de Phone Number [facility] [address] [place] [address] [phone] * Influenza B (ID NOW Rapid Molecular) (08/19/2024 9:19 AM EDT) Only the most recent of2 resultswithin the time period is included. Influenza B Negative Negative, Indeterminate [facility] Swab 08/19/2024 9:19 AM EDT Ramon Damon MD POINT OF CARE TEST ENTER/EDIT OR DERABLES Final Result Performing Organization Address [facility] Co de Phone Number [facility] [address] [place] [phone] * POCT Rapid COVID Ag (08/19/2024 9:11 AM EDT) Pathologist [facility] Rapid COVID Ag Negative Swab 08/19/2024 9:11 AM EDT Ramon Damon MD POINT OF CARE TEST ENTER/EDIT OR DERABLES Final Result * (ABNORMAL) Syphilis Antibodies (DPH) (08/06/2024) [facility] Syphilis Abs Reactive(A) Borderline, Nonreactive, Weakly Reactive, Inconclusive, Specimen unsatisfactory for evaluation Syphilis RPR Nonreactive Blood Venous blood specimen / Unknown 08/06/2024 Result [facility] Historical Provider LAB BLOOD ORDERABLES Kelsey l Result * Hepatitis C Antibody ([facility]) (08/06/2024) [facility] Hepatitis C Ab Nonreactive Blood 08/06/2024 Result [facility] Historical Provider LAB BLOOD ORDERABLES Kelsey l Result * HIV Ab/Ag ([facility]) (08/06/2024) [facility] HIV Ag/Ab Nonreactive Blood 08/06/2024 Result [facility] Historical Provider LAB BLOOD ORDERABLES Kelsey l Result * Referral to Rheumatology (08/06/2024) 08/06/2024 Result [facility] Ruiz ANP OUTPATIENT REFERRAL ORDERABLES F inal Result * US RENAL BI (07/29/2024 12:57 PM EDT) Anatomical Region Laterality Modality Abdomen Ultrasound 07/29/2024 12:5 7 PM EDT Narrative 07/29/2024 12:58 PM EDT [address] [address] Ultrasound Report Signed Patient: Nuvia Fay MR #: [id number] : 1960 Acct:[id number] Age/Sex: 63 / F ADM Date: 07/29/24 Loc: HO.US Attending Dr: Umm PERALTA Ordering Physician: Rosemary Moses Date of Service: 07/29/24 Procedure(s): US renal BI Accession Number(s): [id number] cc: Rosemary Moses; ANTHONY RUIZ NP CLINICAL [...] 07/29/24 1258 DD/ 1257 TD/TT: 07/29/24 1257 [employer] Instrument [employer] Tool Maker: Procedure Note Donotuseinterpreter, Image - 07/29/[address] [address] Ultrasound Report Signed Patient: Nuvia Fay EMR #: [id number] : 1960cct:[id number] Age/Sex: 63 / FADM Date: 07/29/24 Loc: HO.US Attending Dr: Umm PERALTA Ordering Physician: Rosemary Moses Date of Service: 07/29/24 Procedure(s): US renal BI Accession Number(s): [id number] cc: AureliaRosemary OLIVAS-BC; ANTHONY RUIZ NP CLINICAL HISTORY: N20.0 - [...] 07/29/24 1258 DD/ 1257 TD/TT: 07/29/24 1257 Precision Instrument And Tool Maker: [facility] External Provider IMG US PROCEDURES Edited Result - Final * High Sensitivity Troponin I (07/27/2024 1:46 PM EDT) TROPONIN I HIGH SENSITIVITY <2.7 <3.5 - 17.0 ng/L [facility] Comment:The Bailey high sens itivity Troponin-I results should beused in conjunction with other diagnostic information suchas ECG, clinical observations and information, and patientsymptoms to aid in the diagnosis of NV. 07/27/2024 1:46 PM EDT 07/27/2024 1:58 PM EDT Generic External Data Provider LAB BLOOD ORDERAB LES Final Result [facility] [address] [place] [phone] * (ABNORMAL) CBC auto differential (07/27/2024 1:46 PM EDT) White Blood Count 7.3 4.8 - 10.8 X10*3/uL [facility] Red Blood Count 4.60 4.20 - 5.50 X10*6/uL [facility] Hemoglobin 14.6 12.0 - 16.0 g/dl [facility] Hematocrit 43.5 37.0 - 47.0 % [facility] Mean Corpuscular Volume 94.6 80.0 - 98.0 fL [facility] Mean Corpuscular Hemoglobin 31.7 27.0 - 33.0 pg [facility] Mean Corpuscular HGB Conc 33.6 31.0 - 35.0 g/dl [facility] Red Cell Distribution Width 13.7 11.0 - 16.0 % [facility] Platelet Count 301 160 - 400 X10*3/uL [facility] Mean Platelet Volume 9.4 9.4 - 12.3 fL [facility] Neutrophils Percent Auto 44.2(L) 45 - 73 % [facility] Imm Gran Pct Auto 0.3 0.0 - 0.4 % [facility] Lymphocytes Percent Auto 45.7(H) 20 - 40 % [facility] Monocytes Percent Auto 5.5 2 - 11 % [facility] Eosinophils Percent Auto 3.6 0 - 4 % [facility] Basophils Percent Auto 0.7 0 - 2 % [facility] NRBC Pct Auto 0.0 0.0 - 0.2 /100WBC [facility] Neutrophils Absolute Auto 3.2 2.0 - 8.3 x10*3/uL [facility] Imm Gran Abs Auto 0.02 0.00 - 0.03 X10*3/uL [facility] Lymphocytes Absolute Auto 3.3 1.2 - 4.9 X10*3/uL [facility] Monocytes Absolute Auto 0.4 0.1 - 1.2 X10*3/uL [facility] Eosinophils Absolute Auto 0.3 0.0 - 0.4 X10*3/uL [facility] Basophils Absolute Auto 0.1 0.0 - 0.2 X10*3/uL [facility] NRBC Abs Auto 0.000 0.0 - 0.012 X10*3/uL [facility] 07/27/2024 1:46 PM EDT 07/27/2024 1:58 PM EDT us Generic External Data Provider LAB BLOOD ORDERAB LES Final Result Performing Organization Address [facility]/ZIP Co de Phone Number [facility] [address] [place], [place] [phone] * (ABNORMAL) Basic Metabolic Panel (07/27/2024 1:46 PM EDT) Sodium 141 135 - 145 mmol/L [facility] Potassium 3.7 3.3 - 5.1 mmol/L [facility] Chloride 111(H) 96 - 108 mmol/L [facility] Carbon Dioxide 26 22 - 29 mmol/L [facility] Anion Gap 8(L) 12 - 20 [facility] Urea Nitrogen (BUN) 14 9 - 16 mg/dL [facility] Creatinine, Serum 0.94 0.5 - 1.4 mg/dL [facility] Creatinine Clr Calc Pharmacy TNP [facility] Comment:Unable to calculate eCrCL; all parameters not provided. Estimated Glomerular Filt Rate >60 [facility] Comment:Chronic Kidney Disea se: Estimated GFR < 60 mL/min/1.00t3Kxdbdk Kidney Disease: Estimated GFR < 15 mL/min/1.73m2 Glucose 161(H) 60 - 115 mg/dL [facility] Calcium 9.2 8.4 - 10.2 mg/dL [facility] 07/27/2024 1:46 PM EDT 07/27/2024 1:58 PM EDT us Generic External Data Provider LAB BLOOD ORDERAB LES Final Result [facility] [address] [place] [phone] * XR Chest 2 Views (07/27/2024 1:01 PM EDT) Only the most recent of2 resultswithin the time period is included. Anatomical Region Laterality Modality Chest Radiographic Griselda ging 07/27/2024 1:01 PM EDT Narrative 07/27/2024 2:08 PM EDT [address] [address] XRay Report Signed Patient: Nuvia Fay MR #: [id number] : 1960 Acct:[id number] Age/Sex: 63 / F ADM Date: 07/27/24 Loc: .ED Attending Dr: Ordering Physician: Generic ED Physician Date of Service: 07/27/24 Procedure(s): XR chest 2V Accession Number(s): [id number] cc: Generic ED Physician; ANTHONY RUIZ NP [...] Kelvin Eldridge MD 07/27/2024 02:05 PM EDT Dictated By: Kelvin Eldridge MD Signed By: <Electronically signed by Kelvin Eldridge MD in OV> 07/27/24 1405 DD/ 1301 TD/TT: 07/27/24 1401 Prec[employer] Instrument And Tool Maker: Procedure Note Donotuseinterpreter, Image - 07/27/[address] [address] XRay Report Signed Patient: Nuvia Fay EMR #: [id number] : 1960cct:[id number] Age/Sex: 63 / FADM Date: 07/27/24 Loc: HO.ED Attending Dr: Ordering Physician: Generic ED Physician Date of Service: 07/27/24 Procedure(s): XR chest 2V Accession Number(s): [id number] cc: Generic ED Physician; ANTHONY RUIZ NP [...] 07/27/24 1405 DD/ 1301 TD/TT: 07/27/24 1401 Precision Instrument And Tool Maker: [facility] External Provider IMG XR PROCEDURES Final Result * POCT COVID-19 Ag Bailey ID NOW (07/22/2024 12:19 PM EDT) Pathologist [facility] Coronavirus Antigen PCR Negative Negative, Indeterminate, None Detected, Invalid, Specimen unsatisfactory for evaluation, Weakly Positive, 2+ Swab 07/22/2024 12:1 9 PM EDT Samantha Kumar DO POINT OF CARE TEST ENTER/CHRISTINA T ORDERABLES Final Result * (ABNORMAL) Lipid Panel, Standard (06/18/2024 10:18 AM EDT) Triglycerides 122 <150 mg/dL [facility] Comment:Desirable Triglyceri de: less than 150 mg/dLBorderline High Triglyceride 150-199 mg/dLHigh Triglyceride: 200-499 mg/dLVery High Triglyceride: greater than or equal to 5OO mg/dL Cholesterol 216(H) <200 mg/dL [facility] Comment:Desirable Cholestero l: less than 200 mg/dLBorderline High Cholesterol: 200-239 mg/dLHigh Cholesterol: greater than 239 mg/dL LDL Cholesterol Calculated 128(H) <100 mg/dL [facility] Comment:Desirable LDL: less than 100 mg/dLNear Optimal/Above Optimal LDL: 110- 129 mg/dLBorderline High LDL: 130-159 mg/dLHigh LDL: 160-189 mg/dLVery High LDL: greater than or equal to 190 mg/dL HDL Cholesterol 64 >40 mg/dL [facility] Comment:Desirable HDL: great er than 40 mg/dL Note: This HDL assay may give artificially low results in patients with liver disease. Blood Venous blood specimen / Unknown 06/18/2024 10:18 AM EDT 06/18/2024 11:08 AM EDT [facility] LAB BLOOD ORDERABLES Final Resul t [facility] [address] [place] [phone] * BI Mammogram Screening Tomosynthesis Bilateral (04/12/2024 1:48 PM EST) Anatomical Region Laterality Modality Breast Bilateral Mammography 04/12/2024 1:48 PM EST Narrative 04/17/2024 12:38 PM EST [facility] [address] [place] [address] Mammography Report Signed Patient: Nuvia Fay MR #: [id number] : 1960 Acct:[id number] Age/Sex: 63 / F ADM Date: 04/12/24 Loc: HO.MAMMO Attending Dr: Monica Lozano CNM Ordering Physician: Monica Loznao CNM Results: 2Beni gn Findings Date of Service: 04/12/24 Follow Up: 1 Year From Orig inal Mammogram Procedure(s): MM tomosynthesis screening BI Accession Number(s): [id number] cc: Monica Lozano CNM; ANTHONY RUIZ ENGINEERING ILLUSTRATOR EXAMINATION: MM SCREENING DIGITAL BREAST TOMOSYNTHESIS, BILATERAL [...] DO 04/17/2024 12:35 PM [facility] Dictated By: Cherrie Roberts DO Signed By: <Electronically signed by Cherrie Roberts DO in OV> 04/17/24 1235 DD/ 1348 TD/TT: 04/12/24 1405 Precision Instrument And Tool Maker: Procedure Note Donotuseinterpreter, Image - 04/17/2024 [facility] [address] [place] [address] Mammography Report Signed Patient: Nuvia Fay EMR #: [id number] : 1960cct:[id number] Age/Sex: 63 / FADM Date: 04/12/24 Loc: HO.MAMMO Attending Dr: Monica Lozano CNM Ordering Physician: Monica LozanoMResults: 2Beni gn Findings Date of Service: 04/12/24Follow Up: 1 Year From Orig inal Mammogram Procedure(s): MM tomosynthesis screening BI Accession Number(s): [id number] cc: Monica Lozano CNM; ANTHONY RUIZ ENGINEERING ILLUSTRATOR EXAMINATION: MM SCREENING DIGITAL BREAST TOMOSYNTHESIS, BILATERAL [...] 04/17/24 1235 DD/ 1348 TD/TT: 04/12/24 1405 Precision Instrument And Tool Maker: [facility] External Provider IMG BI PROCEDURES Edited Result - Final * Albumin, Random Urine W/Creatinine (01/02/2024 8:44 AM EST) Creatinine, Urine 47.20 mg/dL [facility] Microalbumin Urine 7.0 mg/L [facility] Microalbum Creatinine Ratio Ur 14.8 <30 ug/mg cr [facility] Comment:Albumin/Creatinine R atio Reference Ranges: Normal: < 30 ug/mg creatinine Microalbuminuria: 30 - 300 ug/mg creatinineClinical Albuminuria: > 300 ug/mg creatinine Urine (Urine, Random) 01/02/2024 8:44 AM EST 01/02/2024 11:09 AM EST Anthony PAGE LAB URINE ORDERABLES Final Resul t [facility] [address] [place] [phone] * (ABNORMAL) Hm Colonoscopy (12/27/2021) Colonoscopy Abnormal(A ) Normal Historical Provider HEALTH MAINTENANCE Final Result * HPV E6/E7 RFLX ALFRED 16 18/45 (05/09/2020 11:19 AM EDT) HPV mRNA E6/E7 rflx Not Detected Not Detected [facility] Comment: Methodology: Acetylene Operator-Mediated Amplification This assay detects E6/E7 viral messenger RNA (mRNA) from 14 high-risk HPV types (16,18,31,33,35,39,45,51,52,56,58,59,66,68). The analytical performance characteristics of this assay have been determined by [employer]. The modifications have not been cleared or approved by the FDA. This assay has been validated pursuant to the CLIA regulations and is used for clinical purposes. For additional information, please refer to http://education.[employer]/faq/GYE193n0 (This link if provided for information/ educational purposes only.) THIS TEST WAS PERFORMED AT: [employer] [address] [place] [address] [address]LO[address],[place] [address] HERNAN WARREN MD 05/09/2020 11:1 9 AM EDT [place] HISTORICAL/NON ORDERABLE LABS Fi nal Result [facility] [address] from Last 3 Months or Most Recently Relevant to Health Maintenance Insurance [facility] ONE CARE < 65 DENTAL - [facility] Care Teams Assistant Clinical Nurse Manager Relationship Specialty Start Date End Date Anthony Ruiz ANP [address] [place], [place] PCP - General Family Medicine 09/23/19 Yuri Pierre PharmD [address] [place], [place] Pharmacist Internal Medicine 05/05/24 Basilio Hall MD [address] [place] [address] Cardiology 05/17/24 Ron Preciado MD [address] [place] [address] Pulmonary Disease 05/17/24
--- OUTSIDE RECORDS SUMMARY | 2024-10-20 10:00 | XMS_ITS | Encounter Summary ---
Author Organization [employer] Address 75 [facility] 7t [place] [address] Care Team Providers Care Clam Treader Name Role Phone Sariah Vickers Primary Care Provider [phone] Yuri Pierre PharmD Unavailable [phone] Basilio Hall MD Unavailable [phone] Ron Preciado MD Unavailable [phone] Reason for Visit * Reason Comments Med Refill Encounter Details Date Type Department Care Team (Late st Contact Info) Description 12/19/2022 Refill [facility] [address] [place] [address] Sariah Vickers ANP [address] [place] [address] Vertigo Social History Tobacco Use Types Packs/Day [...] Description 11/05/2024 2:30 PM EDT Office Visit [address] [address] Hallie Tapia MD [address] [place] [address] 11/12/2024 9:30 AM EDT Clinical Support [address] [address] Azeb Hall, RN [address] [place] [address] 01/11/2025 1:00 PM EST Office Visit [address] [address] Sariah Vickers ANP [address] [place] [address] 02/03/2025 11:00 AM EST Medication Management [address] [address] Yuri Pierre, PharmD [address] [place] [address] documented as of this encounter Goals Goal [...] giddiness documented in this encounter Care Teams Clam Treader Relationship Specialty Start Date End Date Sariah Vickers ANP [address] [place] [address] PCP - General Family Medicine 09/23/19 Yuri Pierre, MikeD [address] [place] [address] Pharmacist Internal Medicine 05/05/24 Basilio Hall MD [address] [place] [address] Cardiology 05/17/24 Ron Preciado MD [address] [place] [address] Pulmonary Disease 05/17/24 documented as of this encounter
--- OUTSIDE RECORDS SUMMARY | 2024-10-20 10:00 | XMS_ITS | Encounter Summary ---
Author Organization [email or web address] Address 75 [facility] 7t [place] [address] Care Team Providers Care Performance Engineer Name Role Phone Sariah Vickers Primary Care Provider [phone] Yuri Pierre PharmD Unavailable [phone] Basilio Hall MD Unavailable [phone] Ron Preciado MD Unavailable [phone] Reason for Visit * Reason Comments Med Refill Encounter Details Date Type Department Care Team (Late st Contact Info) Description 12/17/2023 Refill [facility] [address] [place] [address] Sariah Vickers ANP [address] [place] [address] Chronic SI joint pain Social History Tobacco [...] Description 11/05/2024 2:30 PM EDT Office Visit [address] [address] Hallie Tapia MD [address] [place] [address] 11/12/2024 9:30 AM EDT Clinical Support [address] [address] Azeb Hall RN [address] [place] [address] 01/11/2025 1:00 PM EST Office Visit [address] [address] Sariah Vickers, KAYLEE [address] [place] [address] 02/03/2025 11:00 AM EST Medication Management [address] [address] Yuri Pierre, PharmD [address] [place] [address] documented as of this encounter Goals Goal [...] documented as of this encounter Care Teams Performance Engineer Relationship Specialty Start Date End Date Sariah Vickers ANP [address] [place] [address] PCP - General Family Medicine 09/23/19 Yuri Pierre, MikeD [address] [place] [address] Pharmacist Internal Medicine 05/05/24 Basilio Hall MD [address] [place] [address] Cardiology 05/17/24 Ron Preciado MD [address] [place] [address] Pulmonary Disease 05/17/24 documented as of this encounter
--- OUTSIDE RECORDS SUMMARY | 2024-10-20 10:00 | XMS_ITS | Encounter Summary ---
Author Organization [employer] Address 75 [facility] 7t [place] [address] Care Team Providers Care Hospital Coder Name Role Phone Anthony Ruiz Primary Care Provider [phone] Yuri Pierre PharmD Unavailable [phone] Basilio Hall MD Unavailable [phone] Ron Preciado MD Unavailable [phone] Encounter Details Date Type Department Care Team (Late st Contact Info) Description 09/28/2024 Orders Only [facility] [address] [place] [address] Anthony Ruiz ANP [address] [place] [address] Social History Tobacco Use Types Packs/Day Years [...] Description 11/05/2024 2:30 PM EDT Office Visit [address] [address] Hallie Tapia MD [address] [place] [address] 11/12/2024 9:30 AM EDT Clinical Support [address] [address] Azeb Hall RN [address] [place] [address] 01/11/2025 1:00 PM EST Office Visit [address] [address] Anthony Ruiz ANP [address] [place] [address] 02/03/2025 11:00 AM EST Medication Management [address] [address] Yuri Pierre, PharmD [address] [place] [address] documented as of this encounter Goals Goal Patient Goal Type Associated Problems Recent Progress Patient-Stated? Author Blood Pressure < 140/90 Blood Pressure 140/90(2024 1:50 PM EDT) No Phanis-Aida Medina, PharmD Record Your Blood Sugar As Directed General No Phanis-Gambl Aida urbina, PharmD Hemoglobin A1c < 7 Result Component 6.6( 1:54 PM EDT) No Phanis-Dileepl Aida urbina, PharmD documented as of this encounter Procedures Procedure Name Priority Date/Time Associated Diagnosis Comments LDCT LUNG SCREENING Routine 10/09/2024 1 :18 PM EDT documented in this encounter Results * CT Lung Screening Low dose (10/09/2024 1:18 PM EDT) Anatomical Region Laterality Modality Lung Computed Tomogra phy 10/09/2024 1:18 PM EDT Narrative 10/09/2024 1:20 PM EDT [address] [address] [address] Scan Report Signed Patient: Nuvia Fay MR #: [id number] : 1960 Acct:[id number] Age/Sex: 64 / F ADM Date: 10/08/24 Loc: HO.CT Attending Dr: Ron Preciado MD Ordering Physician: Ron Preciado MD Date of Service: 10/08/24 Procedure(s): CT lung screening Accession Number(s): [id number] cc: Ron Preciado MD; ANTHONY RUIZ NP Report Number: [id number]: Total DLP = 64.00 mGy-cm CLINICAL HISTORY: [...] 10/09/24 1319 DD/ 1318 TD/TT: 10/09/24 1318 Paper 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: Procedure Note Donotuseinterpreter, Image - 10/09/[address] [address] [address] Scan Report Signed Patient: Nuvia Fay EMR #: [id number] : 1Acct:[id number] Age/Sex: 64 / FADM Date: 10/08/24 Loc: HO.CT Attending Dr: Ron Preciado MD Ordering Physician: Ron Preciado MD Date of Service: 10/08/24 Procedure(s): CT lung screening Accession Number(s): [id number] cc: Ron Preciado MD; ANTHONY RUIZ NP Report Number: [id number]: Total DLP = 64.00 mGy-cm CLINICAL HISTORY: [...] 10/09/24 1319 DD/ 1318 TD/TT: 10/09/24 1318 Paper 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: [facility] External Provider IMG CT PROCEDURES Edited Result - Final documented in this encounter Visit Diagnoses Not on filedocumented in this encounter Additional Health Concerns Assessment Noted Time PHQ-9 Depression Total Score: 12 024 2:58 PM EDT documented as of this encounter Care Teams Hospital Coder Relationship Specialty Start Date End Date Anthony Ruiz ANP [address] [place] [address] PCP - General Family Medicine 09/23/19 Yuri Pierre, MikeD [address] [place] [address] Pharmacist Internal Medicine 05/05/24 Basilio Hall MD [address] [place] [address] Cardiology 05/17/24 Ron Preciado MD [address] [place] [address] Pulmonary Disease 05/17/24 documented as of this encounter
--- OUTSIDE RECORDS SUMMARY | 2024-10-20 10:00 | XMS_ITS | Encounter Summary ---
Author Organization [employer] Address 75 [facility] 7t [place] [address] Care Team Providers Care Refractory Bricklayer Name Role Phone Sariah Vickers Primary Care Provider Yuri Pierre PharmD Unavailable [phone] Basilio Hall MD Unavailable [phone] Ron Preciado MD Unavailable [phone] Reason for Visit * Reason Comments Med Refill Encounter Details Date Type Department Care Team (Late st Contact Info) Description 01/04/2024 Refill [facility] [address] [place] [address] Sariah Vickers ANP [address] [place] [address] Cervicalgia Social History Tobacco Use Types Packs/Day [...] Description 11/05/2024 2:30 PM EDT Office Visit [address] [address] Hallie Tapia MD [address] [place] [address] 11/12/2024 9:30 AM EDT Clinical Support [address] [address] Azeb Hall RN [address] [place] [address] 01/11/2025 1:00 PM EST Office Visit [address] [address] Sariah Vickers, KAYLEE [address] [place] [address] 02/03/2025 11:00 AM EST Medication Management [address] [address] Yuri Pierre, PharmD [address] [place] [address] documented as of this encounter Goals Goal Patient Goal Type Associated Problems Recent Progress Patient-Stated? Author Blood Pressure < 140/90 Blood Pressure 140/90(2024 1:50 PM EDT) No Aida Ragland, PharmD Record Your Blood Sugar As Directed General No Katelin-Aida Median, PharmD Hemoglobin A1c < 7 Result Component 6.6( 1:54 PM EDT) No Aida Ragland PharmD documented as of this encounter Visit Diagnoses Diagnosis Cervicalgia documented in this encounter Additional Health Concerns Assessment Noted Time PHQ-9 Depression Total Score: 12 024 2:58 PM EDT documented as of this encounter Care Teams Refractory Bricklayer Relationship Specialty Start Date End Date Sariah Vickers ANP [address] [place] [address] PCP - General Family Medicine 09/23/19 Yuri Pierre, MikeD [address] [place] [address] Pharmacist Internal Medicine 05/05/24 Basilio Hall MD [address] [place] [address] Cardiology 05/17/24 Ron Preciado MD [address] [place] [address] Pulmonary Disease 05/17/24 documented as of this encounter
--- OUTSIDE RECORDS SUMMARY | 2024-10-20 10:00 | XMS_ITS | Encounter Summary ---
Author Organization [employer] Address 75 [facility] 7t [place] [address] Care Team Providers Care Director Search Name Role Phone Sariah Vickers Primary Care Provider [phone] Yuri Pierre PharmD Unavailable [phone] Basilio Hall MD Unavailable [phone] Ron Preciado MD Unavailable [phone] Reason for Visit * Reason Onset Date Comments Nurse Triage 12/24/2022 Encounter Details Date Type Department Care Team (Late st Contact Info) Description 12/24/2022 Telephone [facility] [address] [place] [address] Sariah Vickers ANP [address] [place] [address] Nurse Triage Social History Tobacco Use Types [...] - 12/24/2022 1:11 PM EST Called pt.via [employer] historical interpreter [phone] Benjamin. Pt. States that she wants to [...] regimen and possible referral to a new Seafood Preparer due to pt. Not having jeremie in [...] accepted this outcome Please contact pt at [phone] documented in this encounter Plan of Treatment Upcoming Encounters Date Type Department Care Team (Late st Contact Info) Description 11/05/2024 2:30 PM EDT Office Visit [address] [address] Hallie Tapia MD [address] [place] [address] 11/12/2024 9:30 AM EDT Clinical Support [address] [address] Azeb Hall, MARTIN [address] [place] [address] 01/11/2025 1:00 PM EST Office Visit [address] [address] Sariah Vickers ANP [address] [place] [address] 02/03/2025 11:00 AM EST Medication Management [address] [phone] Yuri Pierre PharmD [address] [place] [address] documented as of this encounter Goals Goal Patient Goal Type Associated Problems Recent Progress Patient-Stated? Author Blood Pressure < 140/90 Blood Pressure 140/90(2024 1:50 PM EDT) No Aida Ragland, PharmD Record Your Blood Sugar As Directed General No Aida Ragland, PharmD Hemoglobin A1c < 7 Result Component 6.6( 1:54 PM EDT) No Aida Ragland, PharmD documented as of this encounter Visit Diagnoses Not on filedocumented in this encounter Care Teams Director Search Relationship Specialty Start Date End Date Sariah Vickers ANP [address] [place] [address] PCP - General Family Medicine 09/23/19 Yuri Pierre, Dileep [address] [place] [address] Pharmacist Internal Medicine 05/05/24 Basilio Hall MD [address] [place] [address] Cardiology 05/17/24 Ron Preciado MD [address] [place] [address] Pulmonary Disease 05/17/24 documented as of this encounter
--- OUTSIDE RECORDS SUMMARY | 2024-10-20 10:00 | XMS_ITS | Encounter Summary ---
Author Organization [employer] Address 75 [facility] 7t [place] [address] Care Team Providers Care Statistical Technician Name Role Phone Sariah Vickers Primary Care Provider [phone] Yuri Pierre PharmD Unavailable [phone] Basilio Hall MD Unavailable [phone] Ron Preciado MD Unavailable [phone] Reason for Visit * Reason Comments Med Refill Encounter Details Date Type Department Care Team (Late st Contact Info) Description 10/19/2024 Refill [facility]S [address] [place] [address] Sariah Vickers ANP 230 [place] [address] Cervicalgia Social History Tobacco Use Types Packs/Day [...] Cynthia Bowen documented as of this encounter Plan of Treatment Upcoming Encounters Date Type Department Care Team (Late st Contact Info) Description 11/05/2024 2:30 PM EDT Office Visit [address] [address] Hallie Tapia MD [address] [place] [address] 11/12/2024 9:30 AM EDT Clinical Support [address] [address] Azeb Hall RN 505 [place] [address] 01/11/2025 1:00 PM EST Office Visit [address] [address] Sariah Vickers ANP [address] [place] [address] 02/03/2025 11:00 AM EST Medication Management [facility] 230 [place] [address] Yuri Pierre, PharmD 230 [place] [address] documented as of this encounter Goals Goal Patient Goal Type Associated Problems Recent Progress Patient-Stated? Author Blood Pressure < 140/90 Blood Pressure 140/90(2024 1:50 PM EDT) No PhanisAida Cheng, PharmD Record Your Blood Sugar As Directed General No Phanis-Aida Medina PharmD Hemoglobin A1c < 7 Result Component 6.6( 1:54 PM EDT) No Aida Ragland PharmD documented as of this encounter Visit Diagnoses Diagnosis Cervicalgia documented in this encounter Additional Health Concerns Assessment Noted Time PHQ-9 Depression Total Score: 11 025 5:30 PM EDT documented as of this encounter Care Teams Statistical Technician Relationship Specialty Start Date End Date Sariha Vickers ANP 230 [place] [address] PCP - General Family Medicine 09/23/19 Yuri Pierre, PharmD 230 [place] [address] Pharmacist Internal Medicine 05/05/24 Basilio Hall MD 5[address] [place] [address] Cardiology 05/17/24 Ron Preciado MD [address] [place] [address] Pulmonary Disease 05/17/24 documented as of this encounter
--- OUTSIDE RECORDS SUMMARY | 2024-10-20 10:00 | XMS_ITS | Encounter Summary ---
Author Organization [employer] Address 75 [facility] 7t [place] [address] Care Team Providers Care Consulting Psychiatrist Name Role Phone Sariah Vickers KAYLEE Primary Care Provider [phone] Yuri Pirere PharmD Unavailable [phone] Basilio Hall MD Unavailable [phone] Ron Preciado MD Unavailable [phone] Reason for Visit * Reason Comments Med Refill Encounter Details Date Type Department Care Team (Late st Contact Info) Description 10/04/2024 Refill [facility] MED & PEDS [address] [place] [address] Zakia Uriostegui, PARTS SALESPERSON 230 [place] [address] Type 2 diabetes mellitus with hyperglycemia (CMS/HCC) [...] Description 11/05/2024 2:30 PM EDT Office Visit [address] [address] Hallie Tapia MD [address] [place] [address] 11/12/2024 9:30 AM EDT Clinical Support [address] [address] Azeb Hall, MARTIN 505 [place] [address] 01/11/2025 1:00 PM EST Office Visit [address] [address] Sariah Vickers ANP [address] [place] [address] 02/03/2025 11:00 AM EST Medication Management [address] [address] Yuri Pierre, PharmD 230 [place] [address] documented as of this encounter Goals Goal [...] as of this encounter Care Teams Consulting Psychiatrist Relationship Specialty Start Date End Date Sariah Vickers ANP 230 [place] [address] PCP - General Family Medicine 09/23/19 Yuri Pierre, PharmD [address] [place] [address] Pharmacist Internal Medicine 05/05/24 Basilio Hall MD 596 [place] [address] Cardiology 05/17/24 Ron Preciado MD [address] [place] [address] Pulmonary Disease 05/17/24 documented as of this encounter
--- OUTSIDE RECORDS SUMMARY | 2024-10-20 10:00 | XMS_ITS | Encounter Summary ---
Author Organization [employer] Address 75 [facility] 7t [place] [address] Care Team Providers Care Water Trainer Name Role Phone Sariah Vickers Primary Care Provider [phone] Yuri Pierre PharmD Unavailable [phone] Basilio Hall MD Unavailable [phone] Ron Preciado MD Unavailable [phone] Reason for Visit * Reason Onset Date Comments Med Refill 01/09/2024 Encounter Details Date Type Department Care Team (Late st Contact Info) Description 01/09/[address] [facility] MEDICINE 230 [place] [address] Sariah Vickers ANP 230 [place], [place] [phone] Med Refill Social History Tobacco Use Types [...] Description 11/05/2024 2:30 PM EDT Office Visit [address] [address] Hallie Tapia MD [address] [place] [address] 11/12/2024 9:30 AM EDT Clinical Support [address] [address] Azeb Hall RN 505 [place] [address] 01/11/2025 1:00 PM EST Office Visit [address] [address] Sariah Vickers, KAYLEE [address] [place] [address] 02/03/2025 11:00 AM EST Medication Management [address] [address] Yuri Pierre, PharmD [address] [place] [address] documented as of this encounter Goals Goal [...] documented as of this encounter Care Teams Water Trainer Relationship Specialty Start Date End Date Sariah Vickers ANP 230 [place] [address] PCP - General Family Medicine 09/23/19 Yuri Pierre, MikeD [address] [place] [address] Pharmacist Internal Medicine 05/05/24 Basilio Hall MD 596 [place] [address] Cardiology 05/17/24 Ron Preciado MD [address] [place] [address] Pulmonary Disease 05/17/24 documented as of this encounter
--- OUTSIDE RECORDS SUMMARY | 2024-10-20 10:00 | XMS_ITS | Encounter Summary ---
Author Organization [employer] Address 75 [facility] 7t [place] [address] Care Team Providers Care Decoration Checker Name Role Phone Sariah Vickers Primary Care Provider [phone] Yuri Pierre PharmD Unavailable [phone] Basilio Hall MD Unavailable [phone] Ron Preciado MD Unavailable [phone] Reason for Visit * Reason Comments Med Refill Encounter Details Date Type Department Care Team (Late st Contact Info) Description 01/06/2024 Refill [facility] & PEDS [address] [place] [address] Sariah Vickers ANP 230 [place] [address] Cervicalgia Social History Tobacco Use Types Packs/Day [...] 11/05/2024 2:30 PM EDT Office Visit [address] [address] Hallie Tapia MD [address] [place] [address] 11/12/2024 9:30 AM EDT Clinical Support [address] [address] Azeb Hall RN [address] [place] [address] 01/11/2025 1:00 PM EST Office Visit [address] [address] Sariah Vickers, KAYLEE [address] [place] [address] 02/03/2025 11:00 AM EST Medication Management [address] [address] Yuri Pierre, PharmD [address] [place] [address] documented as of this encounter Goals Goal [...] documented as of this encounter Care Teams Decoration Checker Relationship Specialty Start Date End Date Sariah Vickers ANP 230 [place] [address] PCP - General Family Medicine 09/23/19 Yuri Pierre, MikeD [address] [place] [address] Pharmacist Internal Medicine 05/05/24 Basilio Hall MD [address] [place] [address] Cardiology 05/17/24 Ron Preciado MD [address] [place] [address] Pulmonary Disease 05/17/24 documented as of this encounter
--- OUTSIDE RECORDS SUMMARY | 2024-10-20 10:00 | XMS_ITS | Encounter Summary ---
Author Organization [employer] Address 75 [facility] 7t [place] [address] Care Team Providers Care Mine Exploration Engineer Name Role Phone Sariah Vickers Primary Care Provider [phone] Yuri Pierre PharmD Unavailable [phone] Basilio Hall MD Unavailable [phone] Ron Preciado MD Unavailable [phone] Reason for Visit * Reason Comments Med Refill Encounter Details Date Type Department Care Team (Late st Contact Info) Description 12/27/2022 Refill [facility] MEDICINE 230 [place] [address] Sariah Vickres ANP 230 [place] [address] Neck pain Social History Tobacco Use Types [...] Description 11/05/2024 2:30 PM EDT Office Visit [address] [address] Hallie Tpaia MD [address] [place] [address] 11/12/2024 9:30 AM EDT Clinical Support [address] [address] Azeb Hall, RN 505 [place] [address] 01/11/2025 1:00 PM EST Office Visit [address] [address] Sariah Vickers ANP [address] [place] [address] 02/03/2025 11:00 AM EST Medication Management [address] [address] Yuri Pierre, PharmD [address] [place] [address] documented as of this encounter Goals Goal [...] Cervicalgia documented in this encounter Care Teams Mine Exploration Engineer Relationship Specialty Start Date End Date Sariah Vickers ANP 230 [place] [address] PCP - General Family Medicine 09/23/19 Yuri Pierre, MikeD 230 [place] [address] Pharmacist Internal Medicine 05/05/24 Basilio Hall MD 596 [place] [address] Cardiology 05/17/24 Ron Preciado MD [address] [place] [address] Pulmonary Disease 05/17/24 documented as of this encounter
--- OUTSIDE RECORDS SUMMARY | 2024-10-20 10:00 | XMS_ITS | Encounter Summary ---
Author Organization [employer] Address 75 [facility] 7t [place] [address] Care Team Providers Care Lining Feller Name Role Phone Sariah Vickers Primary Care Provider [phone] Yuri Pierre PharmD Unavailable [phone] Basilio Hall MD Unavailable [phone] Ron Preciado MD Unavailable [phone] Reason for Visit * Reason Onset Date Comments Referral 08/02/2024 Encounter Details Date Type Department Care Team (Late st Contact Info) Description 08/02/2024 Telephone [facility] MEDICINE 230 [place], [place] [phone] Sariah Vickers ANP 230 [place], [place] [phone] Referral Social History Tobacco Use Types Packs/Day [...] for vertigo therapy. Please contact pt at [phone]. (Nepalese Speaker) documented in this encounter Plan of Treatment Upcoming Encounters Date Type Department Care Team (Late st Contact Info) Description 11/05/2024 2:30 PM EDT Office Visit [facility] MEDICINE [address] [place] [address] Hallie Tapia MD 230 [place] [address] 11/12/2024 9:30 AM EDT Clinical Support [facility] MED[facility]INE [address] [place] [address] Azeb Hall, MARTIN 505 [place] [address] 01/11/2025 1:00 PM EST Office Visit [address] [phone] Sariah Vickers ANP [address] [place] [address] 02/03/2025 11:00 AM EST Medication Management [address] [phone] Yuri Pierre, Dileep 230 [place], [place] documented as of this encounter Goals [...] as of this encounter Care Teams Lining Feller Relationship Specialty Start Date End Date Sariah Vickers ANP [address] [place] [address] PCP - General Family Medicine 09/23/19 Yuri Pierre, PharmD [address] [place] [address] Pharmacist Internal Medicine 05/05/24 Basilio Hall MD 5[address] [place], [place] Cardiology 05/17/24 Ron Preciado MD [address] [place] [address] Pulmonary Disease 05/17/24 documented as of this encounter
--- OUTSIDE RECORDS SUMMARY | 2024-10-20 10:00 | XMS_ITS | Encounter Summary ---
Author Organization [employer] Address 75 [facility] 7t [place] [address] Care Team Providers Care Assembling 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 Name Role Phone Sariah Vickers Primary Care Provider [phone] Yuri Pierre PharmD Unavailable [phone] Basilio Hall MD Unavailable [phone] Ron Preciado MD Unavailable [phone] Reason for Visit * Reason Comments Med Refill Encounter Details Date Type Department Care Team (Late st Contact Info) Description 11/24/2023 Refill [facility] MEDICINE 230 [place] [address] Sariah Vickers ANP 230 [place] [address] Vertigo Social History Tobacco Use Types Packs/Day [...] 11/05/2024 2:30 PM EDT Office Visit [address] [address] Hallie Tapia MD [address] [place] [address] 11/12/2024 9:30 AM EDT Clinical Support [address] [address] Azeb Hall RN 505 [place] [address] 01/11/2025 1:00 PM EST Office Visit [address] [address] Sariah Vickers, ANP [address] [place] [address] 02/03/2025 11:00 AM EST Medication Management [address] [address] Yuri Pierre, PharmD [address] [place] [address] documented as of this encounter Goals Goal Patient Goal Type Associated Problems Recent Progress Patient-Stated? Author Blood Pressure < 140/90 Blood Pressure 140/90(2024 1:50 PM EDT) No Adia Ragland, PharmD Record Your Blood Sugar As [...] documented as of this encounter Care Teams Assembling 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 Relationship Specialty Start Date End Date Sariah Vickers ANP 230 [place] [address] PCP - General Family Medicine 09/23/19 Yuri Pierre, MikeD [address] [place] [address] Pharmacist Internal Medicine 05/05/24 Basilio Hall MD [address] [place] [address] Cardiology 05/17/24 Ron Preciado MD [address] [place] [address] Pulmonary Disease 05/17/24 documented as of this encounter
--- OUTSIDE RECORDS SUMMARY | 2024-10-20 10:00 | XMS_ITS | Encounter Summary ---
Author Organization [employer] Address 75 [facility] 7t [place] [address] Care Team Providers Care Laminating 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 Helper Name Role Phone Sariah Vickers Primary Care Provider [phone] Yuri Pierre PharmD Unavailable [phone] Basilio Hall MD Unavailable [phone] Ron Preciado MD Unavailable [phone] Reason for Visit * Reason Comments Med Refill Encounter Details Date Type Department Care Team (Late st Contact Info) Description 10/17/2023 Refill [facility] MEDICINE 230 [place] [address] Sariah Vickers ANP 230 [place] [address] Neck pain Social History Tobacco Use Types [...] Description 11/05/2024 2:30 PM EDT Office Visit [address] [address] Hallie Tapia MD [address] [place] [address] 11/12/2024 9:30 AM EDT Clinical Support [address] [address] Azeb Hall RN 505 [place] [address] 01/11/2025 1:00 PM EST Office Visit [address] [address] Sariah Vickers, ANP [address] [place] [address] 02/03/2025 11:00 AM EST Medication Management [address] [address] Yuri Pierre, PharmD [address] [place] [address] documented as of this encounter Goals Goal [...] documented as of this encounter Care Teams Laminating 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 Helper Relationship Specialty Start Date End Date Sariah Vickers ANP [address] [place] [address] PCP - General Family Medicine 09/23/19 Yuri Pierre PharmD [address] [place] [address] Pharmacist Internal Medicine 05/05/24 Basilio Hall MD [address] [place] [address] Cardiology 05/17/24 Ron Preciado MD [address] [place] [address] Pulmonary Disease 05/17/24 documented as of this encounter
--- OUTSIDE RECORDS SUMMARY | 2024-10-20 10:00 | XMS_ITS | Encounter Summary ---
Author Organization [employer] Address 75 [facility] 7t [place] [address] Care Team Providers Care Principal Network Architect Name Role Phone Sariah Vickers Primary Care Provider [phone] Yuri Pierre PharmD Unavailable [phone] Basilio Hall MD Unavailable [phone] Ron Preciado MD Unavailable [phone] Reason for Visit * Reason Comments Med Refill Encounter Details Date Type Department Care Team (Late st Contact Info) Description 11/26/2023 Refill [facility] MEDICINE 230 [place] [address] Sariah Vickers ANP 230 [place] [address] Vertigo Social History Tobacco Use Types Packs/Day [...] 11/05/2024 2:30 PM EDT Office Visit [address] [address] Hallie Tapia MD [address] [place] [address] 11/12/2024 9:30 AM EDT Clinical Support [address] [address] Azeb Hall RN 505 [place] [address] 01/11/2025 1:00 PM EST Office Visit [address] [address] Sariah Vickers, ANP [address] [place] [address] 02/03/2025 11:00 AM EST Medication Management [address] [address] Yuri Pierre, PharmD [address] [place] [address] documented as of this encounter Goals Goal [...] documented as of this encounter Care Teams Principal Network Architect Relationship Specialty Start Date End Date Sariah Vickers ANP 230 [place] [address] PCP - General Family Medicine 09/23/19 Yuri Pierre, MikeD [address] [place] [address] Pharmacist Internal Medicine 05/05/24 Basilio Hall MD [address] [place] [address] Cardiology 05/17/24 Ron Preciado MD [address] [place] [address] Pulmonary Disease 05/17/24 documented as of this encounter
--- OUTSIDE RECORDS SUMMARY | 2024-10-20 10:00 | XMS_ITS | Encounter Summary ---
Author Organization [employer] Address 75 [facility] 7t [place] [address] Care Team Providers Care Metal Burrer Name Role Phone Sariah Vickers Primary Care Provider [phone] Yuri Pierre PharmD Unavailable [phone] Basilio Hall MD Unavailable [phone] Ron Preciado MD Unavailable [phone] Reason for Visit * Reason Comments Med Refill Encounter Details Date Type Department Care Team (Late st Contact Info) Description 01/06/2024 Refill [facility] MED & PEDS [address] [place] [address] Sariah Vickers ANP 230 [place] [address] Cervicalgia Social History Tobacco Use Types Packs/Day [...] Description 11/05/2024 2:30 PM EDT Office Visit [address] [address] Hallie Tapia MD [address] [place] [address] 11/12/2024 9:30 AM EDT Clinical Support [address] [address] Azeb Hall RN [address] [place] [address] 01/11/2025 1:00 PM EST Office Visit [address] [address] Sariah Vickers, KAYLEE [address] [place] [address] 02/03/2025 11:00 AM EST Medication Management [address] [address] Yuri Pierre, PharmD [address] [place] [address] documented as of this encounter Goals Goal [...] as of this encounter Care Teams Metal Burrer Relationship Specialty Start Date End Date Sariah Vickers ANP 230 [place] [address] PCP - General Family Medicine 09/23/19 Yuri Pierre, MikeD [address] [place] [address] Pharmacist Internal Medicine 05/05/24 Basilio Hall MD [address] [place] [address] Cardiology 05/17/24 Ron Preciado MD [address] [place] [address] Pulmonary Disease 05/17/24 documented as of this encounter
--- OUTSIDE RECORDS SUMMARY | 2024-10-20 10:00 | XMS_ITS | Encounter Summary ---
Author Organization [employer] Address 75 [facility] 7t [place] [address] Care Team Providers Care Elevator Dispatcher Name Role Phone Sariah Vickers Primary Care Provider Yuri Pierre PharmD Unavailable [phone] Basilio Hall MD Unavailable [phone] Ron Preciado MD Unavailable [phone] Reason for Visit * Reason Comments Med Refill Encounter Details Date Type Department Care Team (Late st Contact Info) Description 02/28/2023 Refill [facility] MEDICINE 230 [place] [address] Sariah Vickers ANP 230 [place] [address] Cervicalgia Social History Tobacco Use Types Packs/Day [...] Description 11/05/2024 2:30 PM EDT Office Visit [address] [address] Hallie Tapia MD [address] [place] [address] 11/12/2024 9:30 AM EDT Clinical Support [address] [address] Azeb Hall, RN 505 [place] [address] 01/11/2025 1:00 PM EST Office Visit [address] [address] Sariah Vickers ANP [address] [place] [address] 02/03/2025 11:00 AM EST Medication Management [address] [address] Yuri Pierre, PharmD [address] [place] [address] documented as of this encounter Goals Goal [...] Cervicalgia documented in this encounter Care Teams Elevator Dispatcher Relationship Specialty Start Date End Date Sariah Vickers ANP 230 [place] [address] PCP - General Family Medicine 09/23/19 Yuri Pierre, MikeD [address] [place] [address] Pharmacist Internal Medicine 05/05/24 Basilio Hall MD 596 [place] [address] Cardiology 05/17/24 Ron Preciado MD [address] [place] [address] Pulmonary Disease 05/17/24 documented as of this encounter
--- OUTSIDE RECORDS SUMMARY | 2024-10-20 10:00 | XMS_ITS | Encounter Summary ---
Author Organization [employer] Address 75 [facility] 7t [place] [address] Care Team Providers Care Rehab Aide Name Role Phone Sariah Vickers Primary Care Provider [phone] Yuri Pierre PharmD Unavailable [phone] Basilio Hall MD Unavailable [phone] Ron Preciado MD Unavailable [phone] Reason for Visit * Reason Comments Med Refill Encounter Details Date Type Department Care Team (Late st Contact Info) Description 10/24/2023 Refill [facility] MEDICINE 230 [place] [address] Sariah Vickers ANP 230 [place] [address] Neck pain Social History Tobacco Use Types [...] Description 11/05/2024 2:30 PM EDT Office Visit [address] [address] Hallie Tapia MD [address] [place] [address] 11/12/2024 9:30 AM EDT Clinical Support [address] [address] Azeb Hall RN 505 [place] [address] 01/11/2025 1:00 PM EST Office Visit [address] [address] Sariah Vickers, ANP [address] [place] [address] 02/03/2025 11:00 AM EST Medication Management [address] [address] Yuri Pierre, PharmD [address] [place] [address] documented as of this encounter Goals Goal [...] as of this encounter Care Teams Rehab Aide Relationship Specialty Start Date End Date Sariah Vickers ANP [address] [place] [address] PCP - General Family Medicine 09/23/19 Yuri Pierre PharmD [address] [place] [address] Pharmacist Internal Medicine 05/05/24 Basilio Hall MD [address] [place] [address] Cardiology 05/17/24 Ron Preciado MD [address] [place] [address] Pulmonary Disease 05/17/24 documented as of this encounter
--- OUTSIDE RECORDS SUMMARY | 2024-10-20 10:01 | XMS_ITS | Encounter Summary ---
Author Organization [employer] Address 75 [facility] 7t [place] [address] Care Team Providers Care Cable Inspector Name Role Phone Sariah Vickers Primary Care Provider [phone] Yuri Pierre PharmD Unavailable [phone] Basilio Hall MD Unavailable [phone] Ron Preciado MD Unavailable [phone] Reason for Visit * Reason Comments Med Refill Encounter Details Date Type Department Care Team (Late st Contact Info) Description 07/10/2022 Refill [facility] MED[facility]INE 230 [place] [address] Sariah Vickers ANP 230 [place] [address] Vertigo Social History Tobacco Use Types Packs/Day [...] 11/05/2024 2:30 PM EDT Office Visit [address] [address] Hallie Tapia MD [address] [place] [address] 11/12/2024 9:30 AM EDT Clinical Support [address] [address] Azeb Hall RN 505 [place] [address] 01/11/2025 1:00 PM EST Office Visit [address] [address] Sariah Vickers ANP [address] [place] [address] 02/03/2025 11:00 AM EST Medication Management [address] [address] Yuri Pierre, Dileep [address] [place] [address] documented as of this encounter Visit Diagnoses Diagnosis Vertigo Dizziness and giddiness documented in this encounter Care Teams Cable Inspector Relationship Specialty Start Date End Date Sariah Vickers ANP [address] [place] [address] PCP - General Family Medicine 09/23/19 Yuri Pierre, PharmD [address] [place] [address] Pharmacist Internal Medicine 05/05/24 Basilio Hall MD 596 [place] [address] Cardiology 05/17/24 Ron Preciado MD [address] [place], [place] [address] Pulmonary Disease 05/17/24 documented as of this encounter
--- OUTSIDE RECORDS SUMMARY | 2024-10-20 10:01 | XMS_ITS | Encounter Summary ---
Author Organization [employer] Address 75 [facility] 7t [place] [address] Care Team Providers Care Brim Presser Name Role Phone Sariah Vickers Primary Care Provider [phone] Yuri Pierre PharmD Unavailable [phone] Basilio Hall MD Unavailable [phone] Ron Preciado MD Unavailable [phone] Reason for Visit * Reason Comments Med Refill Encounter Details Date Type Department Care Team (Late st Contact Info) Description 07/12/2022 Refill [facility] MED[facility]INE 230 [place] [address] Sariah Vickers ANP 230 [place] [address] Social History Tobacco Use Types Packs/Day Years [...] 11/05/2024 2:30 PM EDT Office Visit [address] [address] Hallie Tapia MD [address] [place] [address] 11/12/2024 9:30 AM EDT Clinical Support [address] [address] Azeb Hall RN 505 [place] [address] 01/11/2025 1:00 PM EST Office Visit [address] [address] Sariah Vickers ANP [address] [place] [address] 02/03/2025 11:00 AM EST Medication Management [address] [address] Yuri Pierre, PharmBear [address] [place] [address] documented as of this encounter Visit Diagnoses Not on filedocumented in this encounter Care Teams Brim Presser Relationship Specialty Start Date End Date Sariah Vickers ANP [address] [place] [address] PCP - General Family Medicine 09/23/19 Yuri Pierre, PharmD [address] [place] [address] Pharmacist Internal Medicine 05/05/24 Basilio Hall MD 596 [place] [address] Cardiology 05/17/24 Ron Preciado MD [address] [place], [place] [address] Pulmonary Disease 05/17/24 documented as of this encounter
--- OUTSIDE RECORDS SUMMARY | 2024-10-20 10:01 | XMS_ITS | Encounter Summary ---
Author Organization [employer] Address 75 [facility] 7t [place] [address] Care Team Providers Care Panel Monitor Name Role Phone Sariah Vickers Primary Care Provider [phone] Yuri Pierre PharmD Unavailable [phone] Basilio Hall MD Unavailable [phone] Ron Preciado MD Unavailable [phone] Reason for Visit * Reason Comments Med Refill Encounter Details Date Type Department Care Team (Late st Contact Info) Description 05/21/2023 Refill [facility] MEDICINE 230 [place] [address] Sariah Vickers ANP 230 [place] [address] Neck pain Social History Tobacco Use Types [...] Description 11/05/2024 2:30 PM EDT Office Visit [address] [address] Hallie Tapia MD [address] [place] [address] 11/12/2024 9:30 AM EDT Clinical Support [address] [address] Azeb Hall RN 505 [place] [address] 01/11/2025 1:00 PM EST Office Visit [address] [address] Sariah Vickers ANP [address] [place] [address] 02/03/2025 11:00 AM EST Medication Management [place] [address] [place] [address] Yuri Pierre, PharmD 230 [place] [address] documented as of this encounter Goals Goal [...] Cervicalgia documented in this encounter Care Teams Panel Monitor Relationship Specialty Start Date End Date Sariah Vickers ANP 230 [place] [address] PCP - General Family Medicine 09/23/19 Yuri Pierre, PharmD 230 [place] [address] Pharmacist Internal Medicine 05/05/24 Basilio Hall MD 596 [place] [address] Cardiology 05/17/24 Ron Preciado MD [address] [place] [address] Pulmonary Disease 05/17/24 documented as of this encounter
--- OUTSIDE RECORDS SUMMARY | 2024-10-20 10:01 | XMS_ITS | Encounter Summary ---
Author Organization [employer] Address 75 [facility] 7t [place] [address] Care Team Providers Care Nurse Private Duty Name Role Phone Sariah Vickers Primary Care Provider [phone] Yuri Pierre PharmD Unavailable [phone] Basilio Hall MD Unavailable [phone] Ron Preciado MD Unavailable [phone] Reason for Visit * Reason Comments Med Refill Encounter Details Date Type Department Care Team (Late st Contact Info) Description 03/07/2023 Refill [facility] MEDICINE 230 [place] [address] Sariah Vickers ANP 230 [place] [address] Vertigo Social History Tobacco Use Types Packs/Day [...] 11/05/2024 2:30 PM EDT Office Visit [address] [address] Hallie Tapia MD [address] [place] [address] 11/12/2024 9:30 AM EDT Clinical Support [address] [address] Azeb Hall, RN 505 [place] [address] 01/11/2025 1:00 PM EST Office Visit [address] [address] Sariah Vickers ANP [address] [place] [address] 02/03/2025 11:00 AM EST Medication Management [address] [address] Yuri Pierre, PharmD [address] [place] [address] documented as of this encounter Goals Goal [...] giddiness documented in this encounter Care Teams Nurse Private Duty Relationship Specialty Start Date End Date Sariah Vickers ANP 230 [place] [address] PCP - General Family Medicine 09/23/19 Yuri Pierre, MikeD [address] [place] [address] Pharmacist Internal Medicine 05/05/24 Basilio Hall MD [address] [place] [address] Cardiology 05/17/24 Ron Preciado MD [address] [place] [address] Pulmonary Disease 05/17/24 documented as of this encounter
--- OUTSIDE RECORDS SUMMARY | 2024-10-20 10:01 | XMS_ITS | Encounter Summary ---
Author Organization [employer] Address 75 [facility] 7t [place] [address] Care Team Providers Care Spreader Operator Automatic Name Role Phone Sariah Vickers Primary Care Provider [phone] Yuri Pierre PharmD Unavailable [phone] Basilio Hall MD Unavailable [phone] Ron Preciado MD Unavailable [phone] Reason for Visit * Reason Comments Med Refill Encounter Details Date Type Department Care Team (Late st Contact Info) Description 05/23/2024 Refill [facility] [address] [place] [address] Sairah Vickers ANP 230 [place] [address] Cervicalgia Social History Tobacco Use Types Packs/Day [...] 11/05/2024 2:30 PM EDT Office Visit [address] [address] Hallie Tapia MD [address] [place] [address] 11/12/2024 9:30 AM EDT Clinical Support [address] [address] Azeb Hall RN [address] [place] [address] 01/11/2025 1:00 PM EST Office Visit [address] [address] Sariah Vickers, KAYLEE [address] [place] [address] 02/03/2025 11:00 AM EST Medication Management [address] [address] Yuri Pierre, PharmD [address] [place] [address] documented as of this encounter Goals Goal [...] documented as of this encounter Care Teams Spreader Operator Automatic Relationship Specialty Start Date End Date Sariah Vickers ANP 230 [place] [address] PCP - General Family Medicine 09/23/19 Yuri Pierre, MikeD [address] [place] [address] Pharmacist Internal Medicine 05/05/24 Basilio Hall MD [address] [place] [address] Cardiology 05/17/24 Ron Preciado MD [address] [place] [address] Pulmonary Disease 05/17/24 documented as of this encounter
--- OUTSIDE RECORDS SUMMARY | 2024-10-20 10:01 | XMS_ITS | Encounter Summary ---
Author Organization [employer] Address 75 [facility] 7t [place] [address] Care Team Providers Care Record Tabulating Clerk Name Role Phone Sariah Vickers Primary Care Provider [phone] Yuri Pierre PharmD Unavailable [phone] Basilio Hall MD Unavailable [phone] Ron Preciado MD Unavailable [phone] Reason for Visit * Reason Comments Med Refill Encounter Details Date Type Department Care Team (Late st Contact Info) Description 05/09/2023 Refill [facility] MEDICINE 230 [place] [address] Sariah Vickers ANP 230 [place] [address] High cholesterol Social History Tobacco Use Types [...] Description 11/05/2024 2:30 PM EDT Office Visit [address] [address] Hallie Tapia MD [address] [place] [address] 11/12/2024 9:30 AM EDT Clinical Support [address] [address] Azeb Hall, RN 505 [place] [address] 01/11/2025 1:00 PM EST Office Visit [address] [address] Sariah Vickers ANP [address] [place] [address] 02/03/2025 11:00 AM EST Medication Management [address] [address] Yuri Pierre, PharmD [address] [place] [address] documented as of this encounter Goals Goal [...] hypercholesterolemia documented in this encounter Care Teams Record Tabulating Clerk Relationship Specialty Start Date End Date Sariah Vickers ANP 230 [place] [address] PCP - General Family Medicine 09/23/19 Yuri Pierre, MikeD 230 [place] [address] Pharmacist Internal Medicine 05/05/24 Basilio Hall MD 596 [place] [address] Cardiology 05/17/24 Ron Preciado MD [address] [place] [address] Pulmonary Disease 05/17/24 documented as of this encounter
--- OUTSIDE RECORDS SUMMARY | 2024-10-20 10:01 | XMS_ITS | Encounter Summary ---
Author Organization [employer] Address 75 [facility] 7t [place] [address] Care Team Providers Care Senior Climate Advisor Name Role Phone Sariah Vickers Primary Care Provider [phone] Yuri Pierre PharmD Unavailable [phone] Basilio Hall MD Unavailable [phone] Ron Preciado MD Unavailable [phone] Reason for Visit * Reason Onset Date Comments Med Refill Durable Medical Equipment 07/15/2023 Foam M attress/Raised Toilet Seat Encounter Details Date Type Department Care Team (Late st Contact Info) Description 07/15/2023 Refill [facility] MEDICINE 230 [place], [place] [phone] Sariah Vickers ANP 230 [place] [address] Neck pain Social History Tobacco Use Types [...] Please see request sent via email by [facility] Auto Body Technician Arlin Baker. Please Advise. Good morning, Our [...] 2:30 PM EDT Office Visit [facility] MED[facility]INE [address] [place] [address] Hallie Tapia MD [address] [place] [address] 11/12/2024 9:30 AM EDT Clinical Support [address] [phone] Azeb Hall, MARTIN 505 [place] [address] 01/11/2025 1:00 PM EST Office Visit [address] [phone] Sariah Vickers ANP [address] [place] [address] 02/03/2025 11:00 AM EST Medication Management [address] [phone] Yuri Pierre, Dileep [address] [place] [address] documented as of this encounter Goals Goal [...] as of this encounter Care Teams Senior Climate Advisor Relationship Specialty Start Date End Date Sariah Vickers ANP [address] [place] [address] PCP - General Family Medicine 09/23/19 Yuri Pierre, MikeD [address] [place] [address] Pharmacist Internal Medicine 05/05/24 Basilio Hall MD 596 [place] [address] Cardiology 05/17/24 Ron Preciado MD [address] [place] [address] Pulmonary Disease 05/17/24 documented as of this encounter
--- OUTSIDE RECORDS SUMMARY | 2024-10-20 10:01 | XMS_ITS | Encounter Summary ---
Author Organization [facility] [employer] Address 75 [facility] 7t [place] [address] Care Team Providers Care Transit Department Clerk Name Role Phone Sariah Vickers Primary Care Provider [phone] Yuri Pierre PharmD Unavailable [phone] Basilio Hall MD Unavailable [phone] Ron Preciado MD Unavailable [phone] Reason for Visit * Reason Comments Med Refill Encounter Details Date Type Department Care Team (Late st Contact Info) Description 06/30/2023 Refill [facility] MEDICINE 230 [place] [address] Sariah Vickers ANP 230 [place] [address] Neck pain Social History Tobacco Use Types [...] 11/05/2024 2:30 PM EDT Office Visit [address] [address] Hallie Tapia MD [address] [place] [address] 11/12/2024 9:30 AM EDT Clinical Support [address] [address] Azeb Hall RN 505 [place] [address] 01/11/2025 1:00 PM EST Office Visit [address] [address] Sariah Vickers, ANP [address] [place] [address] 02/03/2025 11:00 AM EST Medication Management [address] [address] Yuri Pierre, PharmD [address] [place] [address] documented as of this encounter Goals Goal [...] documented as of this encounter Care Teams Transit Department Clerk Relationship Specialty Start Date End Date Sariah Vickers ANP 230 [place] [address] PCP - General Family Medicine 09/23/19 Yuri Pierre PharmD [address] [place] [address] Pharmacist Internal Medicine 05/05/24 Basilio Hall MD [address] [place] [address] Cardiology 05/17/24 Ron Preciado MD [address] [place] [address] Pulmonary Disease 05/17/24 documented as of this encounter
--- OUTSIDE RECORDS SUMMARY | 2024-10-20 10:01 | XMS_ITS | Encounter Summary ---
Author Organization [employer] Address 75 [facility] 7t [place] [address] Care Team Providers Care Lead Refiner Name Role Phone Sariah Vickers Primary Care Provider [phone] Yuri Pierre PharmD Unavailable [phone] Basilio Hall MD Unavailable [phone] Ron Preciado MD Unavailable [phone] Reason for Visit * Reason Onset Date Comments Referral 05/17/2022 Encounter Details Date Type Department Care Team (Late st Contact Info) Description 05/17/2022 Telephone [facility] MEDICINE 230 [place] [address] Sariah Vickers ANP 230 [place], [place] [phone] Referral Social History Tobacco Use Types Packs/Day [...] guide to vertigo. Please contact pt at [phone] documented in this encounter Plan of Treatment Upcoming Encounters Date Type Department Care Team (Late st Contact Info) Description 11/05/2024 2:30 PM EDT Office Visit [address] [address] Hallie Tapia MD [address] [place] [address] 11/12/2024 9:30 AM EDT Clinical Support [address] [address] Azeb Hall RN 505 [place] [address] 01/11/2025 1:00 PM EST Office Visit [address] [address] Sariah Vickers ANP [address] [place] [address] 02/03/2025 11:00 AM EST Medication Management [address] [address] Yuri Pierre, Dileep [address] [place] [address] documented as of this encounter Visit Diagnoses Not on filedocumented in this encounter Care Teams Lead Refiner Relationship Specialty Start Date End Date Sariah Vickers ANP [address] [place] [address] PCP - General Family Medicine 09/23/19 Yuri Pierre, PharmD 230 [place] [address] Pharmacist Internal Medicine 05/05/24 Basilio Hall MD 596 [place] [address] Cardiology 05/17/24 Ron Preciado MD [address] [place] [address] Pulmonary Disease 05/17/24 documented as of this encounter
--- OUTSIDE RECORDS SUMMARY | 2024-10-20 10:01 | XMS_ITS | Encounter Summary ---
Author Organization [employer] Address 75 [facility] 7t [place] [address] Care Team Providers Care Planer Setup Operator Name Role Phone Sariah Vickers KAYLEE Primary Care Provider [phone] Yuri Pierre PharmD Unavailable [phone] Basilio Hall MD Unavailable [phone] Ron Preciado MD Unavailable [phone] Reason for Visit * Reason Comments Med Refill Encounter Details Date Type Department Care Team (Late st Contact Info) Description 03/04/2023 Refill [facility] 230 [place] [address] Brittney Nava MD 230 [place] [address] Social History Tobacco Use Types Packs/Day Years [...] Description 11/05/2024 2:30 PM EDT Office Visit [address] [address] Hallie Tapia MD [address] [place] [address] 11/12/2024 9:30 AM EDT Clinical Support [address] [address] Azeb Hall, RN 505 [place] [address] 01/11/2025 1:00 PM EST Office Visit [address] [address] Sariah Vickers, KAYLEE [address] [place] [address] 02/03/2025 11:00 AM EST Medication Management [address] [address] Yuri Pierre, PharmD [address] [place] [address] documented as of this encounter Goals Goal [...] on filedocumented in this encounter Care Teams Planer Setup Operator Relationship Specialty Start Date End Date Sariah Vickers ANP 230 [place] [address] PCP - General Family Medicine 09/23/19 Yuri Pierre, PharmD [address] [place] [address] Pharmacist Internal Medicine 05/05/24 Basilio Hall MD 596 [place] [address] Cardiology 05/17/24 Ron Preciado MD [address] [place] [address] Pulmonary Disease 05/17/24 documented as of this encounter
--- OUTSIDE RECORDS SUMMARY | 2024-10-20 10:01 | XMS_ITS | Encounter Summary ---
Author Organization [employer] Address 75 [facility] 7t [place] [address] Care Team Providers Care Magnet Placer Name Role Phone Sariah Vickers Primary Care Provider [phone] Yuri Pierre PharmD Unavailable [phone] Basilio Hall MD Unavailable [phone] Ron Preciado MD Unavailable [phone] Reason for Visit * Reason Onset Date Comments Med Refill 03/04/2023 Encounter Details Date Type Department Care Team (Late st Contact Info) Description 03/04/2023 Telephone [facility] MEDICINE 230 [place], [place] [phone] Sariha Vickers ANP 230 [place], [place] [phone] Med Refill Social History Tobacco Use Types [...] MG tablet To be sent to: [facility] - [place], [place] - [address] [place] [address] documented in this encounter Plan of Treatment Upcoming Encounters Date Type Department Care Team ([facility] st Contact Info) Description 11/05/2024 2:30 PM EDT Office Visit [address] [address] Hallie Tapia MD [address] [place] [address] 11/12/2024 9:30 AM EDT Clinical Support [address] [address] Azeb Hall RN 505 [place] [address] 01/11/2025 1:00 PM EST Office Visit [address] [address] Sariah Vickers, ANP [address] [place] [address] 02/03/2025 11:00 AM EST Medication Management [facility] MEDICINE 230 [place] [address] Yuri Pierre, PharmD 230 [place] [address] documented as of this encounter Goals Goal [...] on filedocumented in this encounter Care Teams Magnet Placer Relationship Specialty Start Date End Date Sariah Vickers ANP 230 [place] [address] PCP - General Family Medicine 09/23/19 Yuri Pierre, PharmD 230 [place] [address] Pharmacist Internal Medicine 05/05/24 Basilio Hall MD [address] [place] [address] Cardiology 05/17/24 Ron Preciado MD [address] [place] [address] Pulmonary Disease 05/17/24 documented as of this encounter
--- OUTSIDE RECORDS SUMMARY | 2024-10-20 10:01 | XMS_ITS | Encounter Summary ---
Author Organization [employer] Address 75 [facility] 7t [place] [address] Care Team Providers Care Tray Packer Name Role Phone aSriah Vickers Primary Care Provider [phone] Yuri Pierre PharmD Unavailable [phone] Basilio Hall MD Unavailable [phone] Ron Preciado MD Unavailable [phone] Reason for Visit * Reason Comments Med Refill Encounter Details Date Type Department Care Team (Late st Contact Info) Description 07/17/2022 Refill [facility] MEDICINE 230 [place] [address] Sariah Vickers ANP 230 [place] [address] Neck pain Social History Tobacco Use Types [...] 11/05/2024 2:30 PM EDT Office Visit [address] [address] Hallie Tapia MD [address] [place] [address] 11/12/2024 9:30 AM EDT Clinical Support [address] [address] Azeb Hall RN 505 [place] [address] 01/11/2025 1:00 PM EST Office Visit [address] [address] Saraih Vickers ANP [address] [place] [address] 02/03/2025 11:00 AM EST Medication Management [address] [address] Yuri Pierre, Dileep [address] [place] [address] documented as of this encounter Visit Diagnoses Diagnosis Neck pain Cervicalgia documented in this encounter Care Teams Tray Packer Relationship Specialty Start Date End Date Sariah Vickers ANP [address] [place] [address] PCP - General Family Medicine 09/23/19 Yuri Pierre, PharmD [address] [place] [address] Pharmacist Internal Medicine 05/05/24 Basilio Hall MD 596 [place] [address] Cardiology 05/17/24 Ron Preciado MD [address] [place], [place] [address] Pulmonary Disease 05/17/24 documented as of this encounter
--- OUTSIDE RECORDS SUMMARY | 2024-10-20 10:01 | XMS_ITS | Encounter Summary ---
Author Organization [employer] Address 75 [facility] 7t [place] [address] Care Team Providers Care Big Data Hadoop Developer Name Role Phone Sariah Vickers Primary Care Provider [phone] Yuri Pierre PharmD Unavailable [phone] Basilio Hall MD Unavailable [phone] Ron Preciado MD Unavailable [phone] Reason for Visit * Reason Comments Med Refill Encounter Details Date Type Department Care Team (Late st Contact Info) Description 08/14/2022 Refill [facility] [address] [place] [address] Sariah Vickers ANP 230 [place] [address] Severe persistent asthma without complication Social History [...] 11/05/2024 2:30 PM EDT Office Visit [address] [address] Hallie Tapia MD [address] [place] [address] 11/12/2024 9:30 AM EDT Clinical Support [address] [address] Azeb Hall RN 505 [place] [address] 01/11/2025 1:00 PM EST Office Visit [address] [address] Sariah Vickers ANP [address] [place] [address] 02/03/2025 11:00 AM EST Medication Management [address] [address] Yuri Pierre, Dileep [address] [place] [address] documented as of this encounter Visit Diagnoses Diagnosis Severe persistent asthma without complication documented in this encounter Care Teams Big Data Hadoop Developer Relationship Specialty Start Date End Date Sariah Vickers ANP [address] [place] [address] PCP - General Family Medicine 09/23/19 Yuri Pierre, PharmD [address] [place] [address] Pharmacist Internal Medicine 05/05/24 Basilio Hall MD 596 [place] [address] Cardiology 05/17/24 Ron Preciado MD [address] [place] [address] Pulmonary Disease 05/17/24 documented as of this encounter
--- OUTSIDE RECORDS SUMMARY | 2024-10-20 10:01 | XMS_ITS | Encounter Summary ---
Author Organization [email or web address] Address 75 [facility] 7t [place] [address] Care Team Providers Care Trauma Doctor Name Role Phone Sariah Vickers Primary Care Provider [phone] Yuri Pierre PharmD Unavailable [phone] Basilio Hall MD Unavailable [phone] Ron Preciado MD Unavailable [phone] Reason for Visit * Reason Comments Med Refill Encounter Details Date Type Department Care Team (Late st Contact Info) Description 07/10/2023 Refill [facility] 230 [place] [address] Sariah Vickers ANP 230 [place], [place] [phone] Chronic SI joint pain Social History Tobacco [...] 11/05/2024 2:30 PM EDT Office Visit [address] [address] Hallie Tapia MD [address] [place] [address] 11/12/2024 9:30 AM EDT Clinical Support [address] [address] Azeb Hall RN 505 [place] [address] 01/11/2025 1:00 PM EST Office Visit [address] [address] Sariah Vickers, KAYLEE [address] [place] [address] 02/03/2025 11:00 AM EST Medication Management [address] [address] Yuri Pierre, PharmD [address] [place] [address] documented as of this encounter Goals Goal [...] documented as of this encounter Care Teams Trauma Doctor Relationship Specialty Start Date End Date Sariah Vickers ANP 230 [place] [address] PCP - General Family Medicine 09/23/19 Yuri Pierre, MikeD 230 [place] [address] Pharmacist Internal Medicine 05/05/24 Basilio Hall MD 596 [place] [address] Cardiology 05/17/24 Ron Preciado MD [address] [place] [address] Pulmonary Disease 05/17/24 documented as of this encounter
--- OUTSIDE RECORDS SUMMARY | 2024-10-20 10:01 | XMS_ITS | Encounter Summary ---
Author Organization [employer] Address 75 [facility] 7t [place] [address] Care Team Providers Care Facing 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 Name Role Phone Sariah Vickers Primary Care Provider [phone] Yuri Pierre PharmD Unavailable [phone] Basilio Hall MD Unavailable [phone] Ron Preciado MD Unavailable [phone] Reason for Visit * Reason Onset Date Comments Appointment Request 09/03/2024 Encounter Details Date Type Department Care Team (Late st Contact Info) Description 09/03/2024 Telephone [facility] MED[facility] 230 [place] [address] Sariah Vickers ANP 230 [place], [place] [phone] Appointment Request Social History Tobacco Use Types [...] when making the apt. Contact pt at [phone] documented in this encounter Plan of Treatment Upcoming Encounters Date Type Department Care Team ([facility] st Contact Info) Description 11/05/2024 2:30 PM EDT Office Visit [facility] [address] [place] [address] Hallie Tapia MD [address] [place] [address] 11/12/2024 9:30 AM EDT Clinical Support [facility] [address] [place] [address] Azeb Hall RN 505 [place] [address] 01/11/2025 1:00 PM EST Office Visit [address] [address] Sariah Vickers ANP [address] [place] [address] 02/03/2025 11:00 AM EST Medication Management [address] [address] Yuri Pierre, PharmBear [address] [place] [address] documented as of this encounter Goals Goal [...] documented as of this encounter Care Teams Facing 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 Relationship Specialty Start Date End Date Sariah Vickers ANP [address] [place] [address] PCP - General Family Medicine 09/23/19 Yuri Pierre, PharmD [address] [place] [address] Pharmacist Internal Medicine 05/05/24 Basilio Hall MD [address] [place] [address] Cardiology 05/17/24 Ron Preciado MD [address] [place] [address] Pulmonary Disease 05/17/24 documented as of this encounter
== END 2024-10-20 09:20 | disposition home or self-care (01) ==
LOC: HO.HMGAL 09:17
PROVIDERS: PCP Nurse Practitioner Primary Care; Visit Provider Registered Nurse Emergency
DX: J30.89 Other allergic rhinitis (principal)
CPT/HCPCS: 95117; 95165

== ENCOUNTER 2024-10-22 10:26 | Outpatient (REF) | payer OTHER, SELFPAY ==
--- OUTSIDE RECORDS SUMMARY | 2024-10-22 11:28 | XMS_ITS | Encounter Summary ---
Author Organization [employer] Address 75 [facility] 7t [place] [address] Care Team Providers Care Drain Cleaner Name Role Phone Sariah Vickers Primary Care Provider Yuri Pierre PharmD Unavailable [phone] Basilio Hall MD Unavailable [phone] Ron Preciado MD Unavailable [phone] Reason for Visit * Reason Comments Med Refill Encounter Details Date Type Department Care Team (Late st Contact Info) Description 03/09/2024 Refill [facility] [address] [place] [address] Sariah Vickers ANP 230 [place] [address] Neck pain Social History Tobacco Use Types [...] 11/05/2024 2:30 PM EDT Office Visit [address] [address] Hallie Tapia MD [address] [place] [address] 11/12/2024 9:30 AM EDT Clinical Support [address] [address] Azeb Hall RN [address] [place] [address] 01/11/2025 1:00 PM EST Office Visit [address] [address] Sariah Vickers, KAYLEE [address] [place] [address] 02/03/2025 11:00 AM EST Medication Management [address] [address] Yuri Pierre, PharmD [address] [place] [address] documented as of this encounter Goals Goal [...] documented as of this encounter Care Teams Drain Cleaner Relationship Specialty Start Date End Date Sariah Vickers ANP 230 [place] [address] PCP - General Family Medicine 09/23/19 Yuri Pierre, MikeD [address] [place] [address] Pharmacist Internal Medicine 05/05/24 Basilio Hall MD [address] [place] [address] Cardiology 05/17/24 Ron Preciado MD [address] [place] [address] Pulmonary Disease 05/17/24 documented as of this encounter
--- OUTSIDE RECORDS SUMMARY | 2024-10-22 11:28 | XMS_ITS | Encounter Summary ---
Author Organization [employer] Address 75 [facility] 7t [place] [address] Care Team Providers Care Timber Watchman Name Role Phone Sariah Vickers Primary Care Provider [phone] Yuri Pierre PharmD Unavailable [phone] Basilio Hall MD Unavailable [phone] Ron Preciado MD Unavailable [phone] Reason for Visit * Reason Onset Date Comments Med Refill 09/18/2023 Encounter Details Date Type Department Care Team (Late st Contact Info) Description 09/18/2023 Telephone [facility] 230 [place], [place] [phone] Sariah Vickers ANP 230 [place], [place] [phone] Med Refill Social History Tobacco Use Types [...] refill : Tramadol To be sent to: [facility] - [place], [place] - [address] [place] [address] documented in this encounter Plan of Treatment Upcoming Encounters Date Type Department Care Team ([facility] st Contact Info) Description 11/05/2024 2:30 PM EDT Office Visit [address] [address] Hallie Tapia MD [address] [place] [address] 11/12/2024 9:30 AM EDT Clinical Support [address] [address] Azeb Hall RN 505 [place] [address] 01/11/2025 1:00 PM EST Office Visit [address] [place] [address] Sariah Vickers ANP 230 [place] [address] 02/03/2025 11:00 AM EST Medication Management [facility] 230 [place] [address] Yuri Pierre, MikeD 230 [place] [address] documented as of this encounter Goals Goal [...] documented as of this encounter Care Teams Timber Watchman Relationship Specialty Start Date End Date Sariah Vickers ANP [address] [place] [address] PCP - General Family Medicine 09/23/19 Yuri Pierre, PharmD [address] [place] [address] Pharmacist Internal Medicine 05/05/24 Basilio Hall MD 596 [place] [address] Cardiology 05/17/24 Ron Preciado MD [address] [place] [address] Pulmonary Disease 05/17/24 documented as of this encounter
--- OUTSIDE RECORDS SUMMARY | 2024-10-22 11:28 | XMS_ITS | Encounter Summary ---
Author Organization [email or web address] Address 75 [facility] 7t [place] [address] Care Team Providers Care Lap Welder Name Role Phone Sariah Vickers Primary Care Provider [phone] Yuri Pierre PharmD Unavailable [phone] Basilio Hall MD Unavailable [phone] Ron Preciado MD Unavailable [phone] Reason for Visit * Reason Comments Med Refill Encounter Details Date Type Department Care Team (Late st Contact Info) Description 02/06/2022 Refill [facility] 230 [place] [address] Sariah Vickers ANP 230 [place] [address] Social History Tobacco Use Types Packs/Day Years [...] 11/05/2024 2:30 PM EDT Office Visit [address] [address] Hallie Tapia MD [address] [place] [address] 11/12/2024 9:30 AM EDT Clinical Support [address] [address] Azeb Hall RN 505 [place] [address] 01/11/2025 1:00 PM EST Office Visit [address] [address] Sariah Vickers ANP [address] [place] [address] 02/03/2025 11:00 AM EST Medication Management [address] [address] Yuri Pierre, Dileep [address] [place] [address] documented as of this encounter Visit Diagnoses Not on filedocumented in this encounter Care Teams Lap Welder Relationship Specialty Start Date End Date Sariah Vickers ANP [address] [place] [address] PCP - General Family Medicine 09/23/19 Yuri Pierre, PharmD [address] [place] [address] Pharmacist Internal Medicine 05/05/24 Basilio Hall MD 596 [place] [address] Cardiology 05/17/24 Ron Preciado MD [address] [place] [address] Pulmonary Disease 05/17/24 documented as of this encounter
--- OUTSIDE RECORDS SUMMARY | 2024-10-22 11:28 | XMS_ITS | Encounter Summary ---
Author Organization [employer] Address 75 [facility] 7t h Floor [address] Care Team Providers Care Housing Relocation Name Role Phone Sariah Vickers Primary Care Provider [phone] Yuri Pierre PharmD Unavailable [phone] Basilio Hall MD Unavailable [phone] Ron Preciado MD Unavailable [phone] Reason for Visit * Reason Comments Med Refill Encounter Details Date Type Department Care Team (Late st Contact Info) Description 08/22/2023 Refill [facility] 230 [place] [address] Sariah Vickers ANP 230 [place] [address] Neck pain Social History Tobacco Use Types [...] Description 11/05/2024 2:30 PM EDT Office Visit [address] [address] Hallie Tapia MD [address] [place] [address] 11/12/2024 9:30 AM EDT Clinical Support [address] [address] Azeb Hall RN 505 [place] [address] 01/11/2025 1:00 PM EST Office Visit [address] [address] Sariah Vickers, ANP [address] [place] [address] 02/03/2025 11:00 AM EST Medication Management [address] [address] Yuri Pierre, PharmD [address] [place] [address] documented as of this encounter Goals Goal [...] documented as of this encounter Care Teams Housing Relocation Relationship Specialty Start Date End Date Sariah Vickers ANP 230 [place] [address] PCP - General Family Medicine 09/23/19 Yuri Pierre PharmD [address] [place] [address] Pharmacist Internal Medicine 05/05/24 Basilio Hall MD [address] [place] [address] Cardiology 05/17/24 Ron Preciado MD [address] [place] [address] Pulmonary Disease 05/17/24 documented as of this encounter
--- OUTSIDE RECORDS SUMMARY | 2024-10-22 11:28 | XMS_ITS | Encounter Summary ---
Author Organization [employer] Address 75 [facility] 7t [place] [address] Care Team Providers Care Healthcare Recruiter Name Role Phone Sariah Vickers Primary Care Provider [phone] Yuri Pierre PharmD Unavailable [phone] Basilio Hall MD Unavailable [phone] Ron Preciado MD Unavailable [phone] Reason for Visit * Reason Onset Date Comments Durable Medical Equipment 03/15/2022 Encounter Details Date Type Department Care Team (Late st Contact Info) Description 03/15/2022 Telephone [facility] MED[facility]INE 230 [place] [address] Sariah Vickers ANP 230 [place], [place] [phone] Durable Medical Equipment Social History Tobacco Use [...] Description 11/05/2024 2:30 PM EDT Office Visit [address] [address] Hallie Tapia MD [address] [place] [address] 11/12/2024 9:30 AM EDT Clinical Support [address] [address] Azeb Hall, MARTIN 505 [place] [address] 01/11/2025 1:00 PM EST Office Visit [address] [address] Sariah Vickers ANP [address] [place] [address] 02/03/2025 11:00 AM EST Medication Management [address] [address] Yuri Pierre, MikeD [address] [place] [address] documented as of this encounter Visit Diagnoses Not on filedocumented in this encounter Care Teams Healthcare Recruiter Relationship Specialty Start Date End Date Sariah Vickers ANP [address] [place] [address] PCP - General Family Medicine 09/23/19 Yuri Pierre, MikeD 230 [place] [address] Pharmacist Internal Medicine 05/05/24 Basilio Hall MD 596 [place] [address] Cardiology 05/17/24 Ron Preciado MD [address] [place] [address] Pulmonary Disease 05/17/24 documented as of this encounter
--- OUTSIDE RECORDS SUMMARY | 2024-10-22 11:28 | XMS_ITS | Encounter Summary ---
Author Organization [employer] Address 75 [facility] 7t [place] [address] Care Team Providers Care Jewish Thought Professor Name Role Phone Sariah Vickers Primary Care Provider Yuri Pierre PharmD Unavailable [phone] Basilio Hall MD Unavailable [phone] Ron Preciado MD Unavailable [phone] Reason for Visit * Reason Comments Med Refill Encounter Details Date Type Department Care Team (Late st Contact Info) Description 09/13/2022 Refill [facility] [address] [place] [address] Sariah Vickers ANP 230 [place] [address] Severe persistent allergic asthma without complication Social [...] Description 11/05/2024 2:30 PM EDT Office Visit [address] [address] Hallie Tapia MD [address] [place] [address] 11/12/2024 9:30 AM EDT Clinical Support [address] [address] zAeb Hall RN 505 [place] [address] 01/11/2025 1:00 PM EST Office Visit [address] [address] Sariah Vickers ANP [address] [place] [address] 02/03/2025 11:00 AM EST Medication Management [address] [address] Yuri Pierre PharmD [address] [place] [address] documented as of this encounter Visit Diagnoses Diagnosis Severe persistent allergic asthma without complication documented in this encounter Care Teams Jewish Thought Professor Relationship Specialty Start Date End Date Sariah Vickers ANP [address] [place] [address] PCP - General Family Medicine 09/23/19 Yuri Pierre, PharmD [address] [place] [address] Pharmacist Internal Medicine 05/05/24 Basilio Hall MD 596 [place] [address] Cardiology 05/17/24 Ron Preciado MD [address] [place] [address] Pulmonary Disease 05/17/24 documented as of this encounter
--- OUTSIDE RECORDS SUMMARY | 2024-10-22 11:28 | XMS_ITS | Encounter Summary ---
Author Organization [employer] Address 75 [facility] 7t [place] [address] Care Team Providers Care Manager Publishing Name Role Phone Sariah Vickers Primary Care Provider [phone] Yuri Pierre PharmD Unavailable [phone] Basilio Hall MD Unavailable [phone] Ron Preciado MD Unavailable [phone] Reason for Visit * Reason Onset Date Comments Med Refill 02/04/2024 Encounter Details Date Type Department Care Team (Late st Contact Info) Description 02/04/2024 Telephone [facility] MEDICINE 230 [place] [address] Sariah Vickers ANP 230 [place], [place] [phone] Med Refill Social History Tobacco Use Types [...] 50 MG tablet To be sent to: [facility] - [place], [place] - [address] [place] [address] documented in this encounter Plan of Treatment Upcoming Encounters Date Type Department Care Team ([facility] st Contact Info) Description 11/05/2024 2:30 PM EDT Office Visit [facility] MEDICINE [address] [place] [address] Hallie Tapia MD [address] [place] [address] 11/12/2024 9:30 AM EDT Clinical Support [address] [address] Azeb Hall RN 505 [place] [address] 01/11/2025 1:00 PM EST Office Visit [address] [address] Sariah Vickers ANP 230 [place] [address] 02/03/2025 11:00 AM EST Medication Management [facility] MEDICINE 230 [place] [address] Yuri Pierre, PharmD 230 [place] [address] documented as of this encounter Goals Goal [...] as of this encounter Care Teams Manager Publishing Relationship Specialty Start Date End Date Sariah Vickers ANP [address] [place] [address] PCP - General Family Medicine 09/23/19 Yuri Pierre, PharmD 230 [place] [address] Pharmacist Internal Medicine 05/05/24 Basilio Hall MD 596 [place] [address] Cardiology 05/17/24 Ron Preciado MD [address] [place] [address] Pulmonary Disease 05/17/24 documented as of this encounter
--- OUTSIDE RECORDS SUMMARY | 2024-10-22 11:28 | XMS_ITS | Encounter Summary ---
Author Organization [employer] Address 75 [facility] 7t [place] [address] Care Team Providers Care Medical Screener Name Role Phone Sariah Vickers Primary Care Provider [phone] Yuri Pierre PharmD Unavailable [phone] Basilio Hall MD Unavailable [phone] Ron Preciado MD Unavailable [phone] Encounter Details Date Type Department Care Team (Late st Contact Info) Description 01/09/2022 Abstract [facility] [address] [place] [address] Dental, Provider, DDS Social History Tobacco Use [...] 11/05/2024 2:30 PM EDT Office Visit [facility] MED[facility]INE [address] [place] [address] Hallie Tapia MD [address] [place] [address] 11/12/2024 9:30 AM EDT Clinical Support [facility] [address] [place] [address] Azeb Hall RN 505 [place] [address] 01/11/2025 1:00 PM EST Office Visit [facility] MED[facility]INE [address] [place] [address] Sariah Vickers ANP 230 [place] [address] 02/03/2025 11:00 AM EST Medication Management [facility] MED[facility]INE 230 [place] [address] Yuri Pierre, PharmD 230 [place], [place] [phone] documented as of this encounter Procedures Procedure [...] filedocumented in this encounter Care Teams Medical Screener Relationship Specialty Start Date End Date Sariah Vickers ANP 230 [place] [address] PCP - General Family Medicine 09/23/19 Yuri Pierre, MikeD 230 [place] [address] Pharmacist Internal Medicine 05/05/24 Basilio Hall MD 596 [place] [address] Cardiology 05/17/24 Ron Preciado MD [address] [place] [address] Pulmonary Disease 05/17/24 documented as of this encounter
--- OUTSIDE RECORDS SUMMARY | 2024-10-22 11:28 | XMS_ITS | Encounter Summary ---
Author Organization [employer] Address 75 [facility] 7t [place] [address] Care Team Providers Care Material Mixer Name Role Phone Sariah Vickers Primary Care Provider Yuri Pierre PharmD Unavailable [phone] Basilio Hall MD Unavailable [phone] Ron Preciado MD Unavailable [phone] Reason for Visit * Reason Comments Med Refill Encounter Details Date Type Department Care Team (Late st Contact Info) Description 03/03/2022 Refill [facility] 230 [place] [address] Sariah Vickers ANP 230 [place] [address] Social History Tobacco Use Types Packs/Day Years [...] 11/05/2024 2:30 PM EDT Office Visit [address] [address] Hallie Tapia MD [address] [place] [address] 11/12/2024 9:30 AM EDT Clinical Support [address] [address] Azeb Hall RN 505 [place] [address] 01/11/2025 1:00 PM EST Office Visit [address] [address] Sariah Vickers ANP [address] [place] [address] 02/03/2025 11:00 AM EST Medication Management [address] [address] Yuri Pierre, Dileep [address] [place] [address] documented as of this encounter Visit Diagnoses Not on filedocumented in this encounter Care Teams Material Mixer Relationship Specialty Start Date End Date Sariah Vickers ANP [address] [place] [address] PCP - General Family Medicine 09/23/19 Yuri Pierre, PharmD [address] [place] [address] Pharmacist Internal Medicine 05/05/24 Basilio Hall MD 596 [place] [address] Cardiology 05/17/24 Ron Preciado MD [address] [place] [address] Pulmonary Disease 05/17/24 documented as of this encounter
--- OUTSIDE RECORDS SUMMARY | 2024-10-22 11:28 | XMS_ITS | Encounter Summary ---
Author Organization [employer] Address [address] [place] [address] 7t [place] [address] Care Team Providers Care Glove Operator Name Role Phone Sariah Vickers Primary Care Provider [phone] Yuri Pierre PharmD Unavailable [phone] Basilio Hall MD Unavailable [phone] Ron Preciado MD Unavailable [phone] Reason for Visit * Reason Onset Date Comments Nurse Triage 11/01/2022 Encounter Details Date Type Department Care Team (Late st Contact Info) Description 11/01/2022 Telephone [facility] MEDICINE 230 [place] [address] Sariah Vickers ANP 230 [place] [address] Nurse Triage Social History Tobacco Use Types [...] 11/01/2022 3:51 PM EDT Triage call with [employer] [id number] Pt reports blood sugars have been high [...] Description 11/05/2024 2:30 PM EDT Office Visit [facility] MEDICINE [address] [place] [address] Hallie Tapia MD 230 [place] [address] 11/12/2024 9:30 AM EDT Clinical Support [facility] MEDICINE [address] [place] [address] Azeb Hall RN 505 [place] [address] 01/11/2025 1:00 PM EST Office Visit [address] [address] Sariah Vickers ANP 230 [place] [address] 02/03/2025 11:00 AM EST Medication Management [address] [address] Yuri Pierre PharmD [address] [place] [address] documented as of this encounter Goals Goal [...] on filedocumented in this encounter Care Teams Glove Operator Relationship Specialty Start Date End Date Sariah Vickers ANP [address] [place] [address] PCP - General Family Medicine 09/23/19 Yuri Pierre, PharmD [address] [place] [address] Pharmacist Internal Medicine 05/05/24 Basilio Hall MD [address] [place] [address] Cardiology 05/17/24 Ron Preciado MD [address] [place] [address] Pulmonary Disease 05/17/24 documented as of this encounter
--- OUTSIDE RECORDS SUMMARY | 2024-10-22 11:28 | XMS_ITS | Encounter Summary ---
Author Organization [employer] Address 75 [facility] 7t [place] [address] Care Team Providers Care Founder Name Role Phone Sariah Vickers Primary Care Provider [phone] Yuri Pierre PharmD Unavailable [phone] Basilio Hall MD Unavailable [phone] Ron Preciado MD Unavailable [phone] Encounter Details Date Type Department Care Team (Late st Contact Info) Description 02/05/2022 Abstract [facility] 230 [place] [address] Sariah Vickers ANP 230 [place] [address] Social History Tobacco Use Types Packs/Day Years [...] 11/05/2024 2:30 PM EDT Office Visit [address] [address] Hallie Tapia MD [address] [place] [address] 11/12/2024 9:30 AM EDT Clinical Support [address] [address] Azeb Hall RN 505 [place] [address] 01/11/2025 1:00 PM EST Office Visit [address] [address] Sariah Vickers ANP [address] [place] [address] 02/03/2025 11:00 AM EST Medication Management [address] [address] Yuri Pierre, MikeD [address] [place] [address] documented as of this encounter Visit Diagnoses Not on filedocumented in this encounter Care Teams Founder Relationship Specialty Start Date End Date Sariah Vickers ANP [address] [place] [address] PCP - General Family Medicine 09/23/19 Yuri Pierre, PharmD 230 [place] [address] Pharmacist Internal Medicine 05/05/24 Basilio Hall MD [address] [place] [address] Cardiology 05/17/24 Ron Preciado MD [address] [place] [address] Pulmonary Disease 05/17/24 documented as of this encounter
--- OUTSIDE RECORDS SUMMARY | 2024-10-22 11:28 | XMS_ITS | Encounter Summary ---
Author Organization [employer] Address 75 [facility] 7t [place] [address] Care Team Providers Care Diamond Setter Name Role Phone Sariah Vickers Primary Care Provider [phone] Yuri Pierre PharmD Unavailable [phone] Basilio Hall MD Unavailable [phone] Ron Preciado MD Unavailable [phone] Reason for Visit * Reason Comments Med Refill Encounter Details Date Type Department Care Team (Late st Contact Info) Description 03/26/2022 Refill [facility] 230 [place] [address] Sariah Vickers ANP 230 [place] [address] Social History Tobacco Use Types Packs/Day Years [...] Description 11/05/2024 2:30 PM EDT Office Visit [address] [address] Hallie Tapia MD [address] [place] [address] 11/12/2024 9:30 AM EDT Clinical Support [address] [address] Azeb Hall RN 505 [place] [address] 01/11/2025 1:00 PM EST Office Visit [address] [address] Sariah Vickers ANP [address] [place] [address] 02/03/2025 11:00 AM EST Medication Management [address] [address] Yuri Pierre, Dileep [address] [place] [address] documented as of this encounter Visit Diagnoses Not on filedocumented in this encounter Care Teams Diamond Setter Relationship Specialty Start Date End Date Sariah Vickers ANP [address] [place] [address] PCP - General Family Medicine 09/23/19 Yuri Pierre, PharmD [address] [place] [address] Pharmacist Internal Medicine 05/05/24 Basilio Hall MD 596 [place] [address] Cardiology 05/17/24 Ron Preciado MD [address] [place] [address] Pulmonary Disease 05/17/24 documented as of this encounter
--- OUTSIDE RECORDS SUMMARY | 2024-10-22 11:28 | XMS_ITS | Encounter Summary ---
Author Organization [employer] Address 75 [facility] 7t [place] [address] Care Team Providers Care Music Typographer Name Role Phone Sariah Vickers Primary Care Provider [phone] Yuri Pierre PharmD Unavailable [phone] Basilio Hall MD Unavailable [phone] Ron Preciado MD Unavailable [phone] Reason for Visit * Reason Comments Med Refill Encounter Details Date Type Department Care Team (Late st Contact Info) Description 10/03/2023 Refill [facility] 230 [place] [address] Sariah Vickers ANP 230 [place], [place] [phone] Chronic SI joint pain Social History Tobacco [...] 11/05/2024 2:30 PM EDT Office Visit [address] [address] Hallie Tapia MD [address] [place] [address] 11/12/2024 9:30 AM EDT Clinical Support [address] [address] Azeb Hall RN 505 [place] [address] 01/11/2025 1:00 PM EST Office Visit [address] [address] Sariah Vickers, KAYLEE [address] [place] [address] 02/03/2025 11:00 AM EST Medication Management [address] [address] Yuri Pierre, PharmD [address] [place] [address] documented as of this encounter Goals Goal [...] documented as of this encounter Care Teams Music Typographer Relationship Specialty Start Date End Date Sariah Vickers ANP 230 [place] [address] PCP - General Family Medicine 09/23/19 Yuri Pierre, MikeD [address] [place] [address] Pharmacist Internal Medicine 05/05/24 Basilio Hall MD [address]96 [place] [address] Cardiology 05/17/24 Ron Preciado MD [address] [place] [address] Pulmonary Disease 05/17/24 documented as of this encounter
--- OUTSIDE RECORDS SUMMARY | 2024-10-22 11:28 | XMS_ITS | Encounter Summary ---
Author Organization [employer] Address 75 [facility] 7t [place] [address] Care Team Providers Care Information Clerk Cashier Name Role Phone Sariah Vickers Primary Care Provider Yuri Pierre PharmD Unavailable [phone] Basilio Hall MD Unavailable [phone] Ron Preciado MD Unavailable [phone] Encounter Details Date Type Department Care Team (Latest Contact Info) Description 05/15/2018 Abstract [facility] CONVERSIONS Dental, Provider, DDS Social History Tobacco [...] Description 11/05/2024 2:30 PM EDT Office Visit [facility] [address] [place] [address] Hallie Tapia MD [address] [place] [address] 11/12/2024 9:30 AM EDT Clinical Support [facility]INE [address] [place] [address] Azeb Hall RN 505 [place] [address] 01/11/2025 1:00 PM EST Office Visit [address] [address] Sariah Vickers ANP [address] [place] [address] 02/03/2025 11:00 AM EST Medication Management [address] [address] Yuri Pierre, Dileep [address] [place] [address] documented as of this encounter Visit Diagnoses Not on filedocumented in this encounter Care Teams Information Clerk Cashier Relationship Specialty Start Date End Date Sariah Vickers ANP [address] [place] [address] PCP - General Family Medicine 09/23/19 Yuri Pierre, PharmD [address] [place] [address] Pharmacist Internal Medicine 05/05/24 Basilio Hall MD 596 [place] [address] Cardiology 05/17/24 Ron Preciado MD [address] [place] [address] Pulmonary Disease 05/17/24 documented as of this encounter
--- OUTSIDE RECORDS SUMMARY | 2024-10-22 11:28 | XMS_ITS | Encounter Summary ---
Author Organization [employer] Address 75 [facility] 7t [place] [address] Care Team Providers Care Machine Crater Name Role Phone Sariah Vickers Primary Care Provider [phone] Yuri Pierre PharmD Unavailable [phone] Basilio Hall MD Unavailable [phone] Ron Preciado MD Unavailable [phone] Encounter Details Date Type Department Care Team (Latest Contact Info) Description 04/14/2020 Abstract [facility] CONVERSIONS Dental, Provider, DDS Social History [...] Description 11/05/2024 2:30 PM EDT Office Visit [facility] [address] [place] [address] Hallie Tapia MD [address] [place] [address] 11/12/2024 9:30 AM EDT Clinical Support [facility] [address] [place] [address] Azeb Hall RN 505 [place] [address] 01/11/2025 1:00 PM EST Office Visit [address] [address] Sariah Vickers ANP [address] [place] [address] 02/03/2025 11:00 AM EST Medication Management [address] [address] Yuri Pierre, PharmBear [address] [place] [address] documented as of this encounter Visit Diagnoses Not on filedocumented in this encounter Care Teams Machine Crater Relationship Specialty Start Date End Date Sariah Vickers ANP [address] [place] [address] PCP - General Family Medicine 09/23/19 Yuri Pierre, PharmD [address] [place] [address] Pharmacist Internal Medicine 05/05/24 Basilio Hall MD 6 [place] [address] Cardiology 05/17/24 Ron Preciado MD [address] [place] [address] Pulmonary Disease 05/17/24 documented as of this encounter
--- OUTSIDE RECORDS SUMMARY | 2024-10-22 11:28 | XMS_ITS | Encounter Summary ---
Author Organization [employer] Address 75 [facility] 7t [place] [address] Care Team Providers Care Road Hogger Operator Name Role Phone Sariah Vickers Primary Care Provider [phone] Yuri Pierre PharmD Unavailable [phone] Basilio Hall MD Unavailable [phone] Ron Preciado MD Unavailable [phone] Encounter Details Date Type Department Care Team (Latest Contact Info) Description 06/20/2021 Abstract [facility] CONVERSIONS Dental, Provider, DDS Social History [...] Description 11/05/2024 2:30 PM EDT Office Visit [facility] MED[facility]INE [address] [place] [address] Hallie Tapia MD [address] [place] [address] 11/12/2024 9:30 AM EDT Clinical Support [facility] [address] [place] [address] Azeb Hall RN 505 [place] [address] 01/11/2025 1:00 PM EST Office Visit [address] [address] Sariah Vickers ANP [address] [place] [address] 02/03/2025 11:00 AM EST Medication Management [address] [address] Yuri Pierre, PharmBear [address] [place] [address] documented as of this encounter Visit Diagnoses Not on filedocumented in this encounter Care Teams Road Hogger Operator Relationship Specialty Start Date End Date Sariah Vickers ANP [address] [place] [address] PCP - General Family Medicine 09/23/19 Yuri Pierre, PharmD [address] [place] [address] Pharmacist Internal Medicine 05/05/24 Basilio Hall MD 6 [place] [address] Cardiology 05/17/24 Ron Perciado MD [address] [place] [address] Pulmonary Disease 05/17/24 documented as of this encounter
--- OUTSIDE RECORDS SUMMARY | 2024-10-22 11:29 | XMS_ITS | Encounter Summary ---
Author Organization [employer] Address 75 [facility] 7t [place] [address] Care Team Providers Care Sand Mill Operator Core Sand Name Role Phone Sariah Vickers Primary Care Provider [phone] Yuri Pierre PharmD Unavailable [phone] Basilio Hall MD Unavailable [phone] Ron Preciado MD Unavailable [phone] Reason for Visit * Reason Onset Date Comments Nurse Triage 12/24/2022 Encounter Details Date Type Department Care Team (Late st Contact Info) Description 12/24/2022 Telephone [facility] 230 [place] [address] Sariah Vickers ANP 230 [place] [address] Nurse Triage Social History Tobacco Use Types [...] - 12/24/2022 1:11 PM EST 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 Pt. States that she wants to [...] regimen and possible referral to a new Insurance Commissioner due to pt. Not having jeremie in [...] accepted this outcome Please contact pt at [phone] documented in this encounter Plan of Treatment Upcoming Encounters Date Type Department Care Team (Late st Contact Info) Description 11/05/2024 2:30 PM EDT Office Visit [address] [address] Hallie Tapia MD [address] [place] [address] 11/12/2024 9:30 AM EDT Clinical Support [address] [address] Azeb Hall, MARTIN 505 [place] [address] 01/11/2025 1:00 PM EST Office Visit [address] [address] Sariah Vickers ANP [address] [place] [address] 02/03/2025 11:00 AM EST Medication Management [address] [phone] Yuri Pierre PharmD [address] [place] [address] documented as of this encounter Goals Goal [...] on filedocumented in this encounter Care Teams Sand Mill Operator Core Sand Relationship Specialty Start Date End Date Sariah Vickers ANP [address] [place] [address] PCP - General Family Medicine 09/23/19 Yuri Pierre, Dileep [address] [place] [address] Pharmacist Internal Medicine 05/05/24 Basilio Hall MD 596 [place] [address] Cardiology 05/17/24 Ron Preciado MD [address] [place] [address] Pulmonary Disease 05/17/24 documented as of this encounter
--- OUTSIDE RECORDS SUMMARY | 2024-10-22 11:29 | XMS_ITS | Encounter Summary ---
Author Organization [employer] Address 75 [facility] 7t [place] [address] Care Team Providers Care Beef Cattle Grazier Name Role Phone Sariah Vickers Primary Care Provider [phone] Yuri Pierre PharmD Unavailable [phone] Basilio Hall MD Unavailable [phone] Ron Preciado MD Unavailable [phone] Reason for Visit * Reason Comments Med Refill Patient walked [facility] hasn't finished her Medbox due to missing refill for medication Gabapetin . Encounter Details Date Type Department Care Team (Late st Contact Info) Description 10/03/2023 Refill [facility] 230 [place], [place] [phone] Sariah Vickers ANP 230 [place], [place] [phone] Chronic SI joint pain Social History Tobacco [...] the past 12 months, has t he [employer], gas, oil or water company threatened to [...] Description 11/05/2024 2:30 PM EDT Office Visit [address] [address] Hallie Tapia MD [address] [place] [address] 11/12/2024 9:30 AM EDT Clinical Support [address] [address] Azeb Hall RN 505 [place] [address] 01/11/2025 1:00 PM EST Office Visit [address] [place] [address] Sariah Vickers ANP [address] [place] [address] 02/03/2025 11:00 AM EST Medication Management [facility] [address] [place] [address] Yuri Pierre PharmD [address] [place] [address] documented as of this encounter Goals Goal [...] documented as of this encounter Care Teams Beef Cattle Grazier Relationship Specialty Start Date End Date Sariah Vickers ANP [address] [place] [address] PCP - General Family Medicine 09/23/19 Yuri Pierre, PharmD [address] [place] [address] Pharmacist Internal Medicine 05/05/24 Basilio Hall MD [address] [place] [address] Cardiology 05/17/24 Ron Preciado MD [address] [place] [address] Pulmonary Disease 05/17/24 documented as of this encounter
--- OUTSIDE RECORDS SUMMARY | 2024-10-22 11:29 | XMS_ITS | Encounter Summary ---
Author Organization [employer] Address 75 [facility] 7t [place] [address] Care Team Providers Care Community Education Coordinator Name Role Phone Sariah Vickers Primary Care Provider [phone] Yuri Pierre PharmD Unavailable [phone] Basilio Hall MD Unavailable [phone] Ron Preciado MD Unavailable [phone] Reason for Visit * Reason Comments Med Refill Encounter Details Date Type Department Care Team (Late st Contact Info) Description 12/27/2022 Refill [facility] 230 [place] [address] Sariah Vickers ANP 230 [place] [address] Neck pain Social History Tobacco Use Types [...] Description 11/05/2024 2:30 PM EDT Office Visit [address] [address] Hallie Tapia MD [address] [place] [address] 11/12/2024 9:30 AM EDT Clinical Support [address] [address] Azeb Hall, RN 505 [place] [address] 01/11/2025 1:00 PM EST Office Visit [address] [address] Sariah Vickers ANP [address] [place] [address] 02/03/2025 11:00 AM EST Medication Management [address] [address] Yuri Pierre, PharmD [address] [place] [address] documented as of this encounter Goals Goal [...] Cervicalgia documented in this encounter Care Teams Community Education Coordinator Relationship Specialty Start Date End Date Sariah Vickers ANP 230 [place] [address] PCP - General Family Medicine 09/23/19 Yuri Pierre, MikeD 230 [place] [address] Pharmacist Internal Medicine 05/05/24 Basilio Hall MD 596 [place] [address] Cardiology 05/17/24 Ron Preciado MD [address] [place] [address] Pulmonary Disease 05/17/24 documented as of this encounter
--- OUTSIDE RECORDS SUMMARY | 2024-10-22 11:29 | XMS_ITS | Encounter Summary ---
Author Organization [employer] Address 75 [facility] 7t [place] [address] Care Team Providers Care Filer Metal Patterns Name Role Phone Sariah Vickers Primary Care Provider [phone] Yuri Pierre PharmD Unavailable [phone] Basilio Hall MD Unavailable [phone] Ron Preciado MD Unavailable [phone] Reason for Visit * Reason Comments Med Refill Encounter Details Date Type Department Care Team (Late st Contact Info) Description 12/17/2023 Refill [facility] MEDICINE 230 [place] [address] Sariah Vickers ANP [address] [place] [address] Chronic SI joint pain Social History Tobacco [...] Description 11/05/2024 2:30 PM EDT Office Visit [address] [address] Hallie Tapia MD [address] [place] [address] 11/12/2024 9:30 AM EDT Clinical Support [address] [address] Azeb Hall RN [address] [place] [address] 01/11/2025 1:00 PM EST Office Visit [address] [address] Sariah Vickers, KAYLEE [address] [place] [address] 02/03/2025 11:00 AM EST Medication Management [address] [address] Yuri Pierre, PharmD [address] [place] [address] documented as of this encounter Goals Goal [...] documented as of this encounter Care Teams Filer Metal Patterns Relationship Specialty Start Date End Date Sariah Vickers ANP 230 [place] [address] PCP - General Family Medicine 09/23/19 Yuri Pierre, MikeD [address] [place] [address] Pharmacist Internal Medicine 05/05/24 Basilio Hall MD 596 [place] [address] Cardiology 05/17/24 Ron Preciado MD [address] [place] [address] Pulmonary Disease 05/17/24 documented as of this encounter
--- OUTSIDE RECORDS SUMMARY | 2024-10-22 11:29 | XMS_ITS | Encounter Summary ---
Author Organization [employer] Address 75 [facility] 7t [place] [address] Care Team Providers Care Cornice Maker Name Role Phone Sariah Vickers Primary Care Provider [phone] Yuri Pierre PharmD Unavailable [phone] Basilio Hall MD Unavailable [phone] Ron Preciado MD Unavailable [phone] Reason for Visit * Reason Comments Med Refill Encounter Details Date Type Department Care Team (Late st Contact Info) Description 10/19/2024 Refill [facility] [address] [place] [address] Sariah Vickers ANP 230 [place] [address] Cervicalgia Social History Tobacco Use Types Packs/Day [...] Description 11/05/2024 2:30 PM EDT Office Visit [address] [address] Hallie Tapia MD [address] [place] [address] 11/12/2024 9:30 AM EDT Clinical Support [address] [address] Azeb Hall RN 505 [place] [address] 01/11/2025 1:00 PM EST Office Visit [address] [address] Sariah Vickers ANP [address] [place] [address] 02/03/2025 11:00 AM EST Medication Management [facility] 230 [place] [address] Yuri Pierre, PharmD 230 [place] [address] documented as of this encounter Goals Goal [...] documented as of this encounter Care Teams Cornice Maker Relationship Specialty Start Date End Date Sariah Vickers ANP 230 [place] [address] PCP - General Family Medicine 09/23/19 Yuri Pierre, PharmD 230 [place] [address] Pharmacist Internal Medicine 05/05/24 Basilio Hall MD 596 [place] [address] Cardiology 05/17/24 Ron Preciado MD [address] [place] [address] Pulmonary Disease 05/17/24 documented as of this encounter
--- OUTSIDE RECORDS SUMMARY | 2024-10-22 11:29 | XMS_ITS | Clinical Summary ---
Author Organization [employer] Address [address] [facility] [address] [place] [address] Care Team Providers [employer] Cord Weaver Name Role Phone Anthony Ruiz KAYLEE Primary Care Provider [phone] Yuri Pierre PharmD Unavailable [phone] Basilio Hall MD Unavailable [phone] Ron Preciado MD Unavailable [phone] Allergies Active Allergy Reactions Criticality Noted [...] the morning. Active Lactobacillus-In ulin ([facility] [employer] [facility]) capsule 023 Active Xolair 150 MG/ML injection [...] Type 2 diabetes mellitus with hyperlipidemia (CMS/HCC) ([facility]) USE DIRECTED THREE TIMES DAILY 100 [...] 90 tablet 4 025 Active Continuous Glucose Host And Hostess (FreeStyle Jalil 3 Ava) device 1 each Once per day. Use [...] 2 diabetes mellitus with hyperlipidemia (CMS/HCC) ([facility]) Inject 0.5 mg under the skin 1 (one) time per week. 1 each 025 Active insulin lispro (HumaLOG KWIKPEN) 100 UNIT/ML injectionIndicat ions:Type 2 diabetes mellitus with hyperlipidemia (CMS/HCC) ([facility]) Take 4-6 units as needed if BG high while taking prednisone; As needed as directed by provider 6 mL 1 Active hydrocortisone (Anusol-HC) 2.5 % rectal cream APPLY 1 APPLICATORFUL RECTALLY TWICE DAILY FOR FOR HEMORRHOIDS Active busPIRone (Buspar) 15 MG tablet Take 1 tablet by mouth every 6 (six) hours during the day. Active glucagon (Baqsimi Two Pack) 3 MG/DOSE nasal powderIndication s:Type 2 diabetes mellitus with diabetic neuropathy, with long-term current use of insulin ([facility]) Administer 3 mg into affected nostril(s) 1 [...] miscIndications: Type 2 diabetes mellitus with hyperglycemia ([facility]) TEST BLOOD SUGAR FOUR TIMES DAILY 200 each Active acetaminophen (Tylenol) 325 MG tabletIndication s:Neck pain TAKE 1 TO 2 TABLETS BY MOUTH EVERY 6 HOURS NEEDED 120 tablet 025 Active enalapril (Vasotec) 20 MG tabletIndication s:Essential hypertension TAKE 1 TABLET BY MOUTH EVERY MORNING 30 tablet 1 025 Active Fluticasone-Salm eterol 250-50 MCG/ACT aerosol powderIndication s:Severe persistent asthma without complication INHALE 1 PUFF BY MOUTH TWICE DAILY, RINSE MOUTH AFTER USING. 60 each Active gabapentin (Neurontin) 400 MG capsuleIndicatio ns:Chronic [...] FOR SEVERE PAIN 60 tablet 025 Active glucose blood (FREESTYLE LITE) test [...] describe above. She is currently connected with services through [facility]. Pt needing additional support due [...] family. She will continue services with [facility] for OP therapy and psychiatry services. clinician will be available if needed during next medical appointment. PLAN: (check all that apply) Continue with current services (defined as services in the past 12 months) . Pt is engaged with OP therapy and psychiatry services with [facility] @ [facility] Excessive attrition of teeth, generalized 2023 Right [...] family. She will continue services with [facility] for OP therapy and psychiatry services. clinician will be available if needed during next medical appointment. PLAN: (check all that apply) Continue with current services (defined as services in the past 12 months) . Pt is engaged with OP therapy and psychiatry services with [facility] @ [facility] Fibromyalgia 07/31/2022 [...] for possible plantar fasciitis -referred today to correctional case records supervisor x ongoing discomfort -may need orthopedic [...] Self Plan Patient to reach out to [facility] team as needed Assessment & [...] manner PLAN: 1. Follow up with [facility]: Not recommended for follow-up 2. Patient goal is: reduce anxiousness 3. Behavioral Recommendations a. Patient will comply with medication b. Patient may request to speak with a [facility] during next PCP visit, if needed Chronic [...] organization. Date Type Department Care Team Description 10/20/2024 Results Follow-Up [facility] [address] [place] [address] Anthony Ruiz ANP Prothrombin Time-INR, C-reactive Protein, Amylase, Additional followed-up results: 7 10/19/2024 Refill [facility] [address] [place] [address] Anthony Ruiz ANP Cervicalgia 10/14/2024 1:30 PM EDT Office Visit [facility] [address] [place] [address] Anthony Ruiz ANP Type 2 diabetes mellitus with hyperlipidemia (CMS/HCC) (CMS/HCC) (Primary Dx); Chronic pain of both knees 10/14/2024 Travel 10/13/2024 10:40 AM EDT Office Visit [facility] [address] [place] [address] Chava Presley MD Essential hypertension (Primary Dx) 10/13/2024 Travel 10/12/2024 Orders Only GENERIC EXTERNAL DATA DEPARTMENT Provider, Generic External Data 10/09/2024 Refill [facility] [address] [place] [address] Anthony Ruiz ANP Severe persistent asthma without complication 10/06/2024 Travel 10/04/2024 Refill [facility] [address] [place] [address] Zakia Uriostegui NP Type 2 diabetes mellitus with hyperglycemia (CMS/HCC) 10/01/2024 11:00 AM EDT Clinical Support [facility] [address] [place] [phone] Azeb Hall, RN Neck pain 10/01/2024 Telephone [facility] [address] [place] [address] Azeb Hall, MARTIN 10/01/2024 Travel 09/30/2024 Telephone [facility] [address] [place] [address] Anthony Ruiz ANP Referral 09/30/2024 Telephone [facility] [address] [place] [phone] Anthnoy Ruiz ANP Referral 09/30/2024 Refill [facility] [address] [place] [phone] Anthony Ruiz ANP Chronic SI joint pain 09/28/2024 Orders Only [facility] [address] [place] [address] Anthony Ruiz ANP 09/25/2024 Refill [facility] [address] [place] [phone] Anthony Ruiz ANP Chronic SI joint pain; Essential hypertension; Severe persistent asthma without complication 09/24/2024 2:00 PM EDT Office Visit [facility] [address] [place] [address] Juan, Luisa, OD Diabetes type 2, no ocular involvement (CMS/HCC) (Primary Dx); Mixed type age-related cataract, both eyes; Lesion of left lower eyelid; Presbyopia 09/24/2024 Travel 09/19/2024 Refill [facility] [address] [place] [address] Debra Faye MD Cervicalgia 09/16/2024 Refill [facility] [address] [place] [address] Zakia Uriostegui, MARKO Type 2 diabetes mellitus with hyperglycemia ([facility]); Neck pain 09/03/2024 Telephone [facility] [address] [place] [phone] Anthony Ruiz ANP Appointment Request 09/02/2024 Telephone [facility] [address] [place] [phone] Anthony Ruiz ANP Durable Medical Equipment 08/26/2024 Telephone [facility] [address] [place] [phone] Anthony Ruiz ANP Durable Medical Equipment 08/23/2024 Refill [facility] [address] [place] [address] Anthony Ruiz ANP Type 2 diabetes mellitus with hyperglycemia ([facility]/HCC) 08/21/2024 Refill [facility] [address] [place] [address] Anthony Ruiz ANP Cervicalgia; Chronic bilateral low back pain, unspecified whether sciatica present 08/20/2024 Refill [facility] [address] [place] [phone] Anthony Ruiz ANP Chronic bilateral low back pain, unspecified whether sciatica present 08/19/2024 9:00 AM EDT Office Visit [facility] [address] [place] [phone] Ramon Damon MD Viral URI with cough 08/16/2024 Refill [facility] [address] [place] [phone] Debra Faye MD Neck pain 08/13/2024 Orders Only [facility] [address] [place] [phone] Leora Hoffman RN 08/11/2024 4:00 PM EDT Office Visit [facility] [address] [place] [phone] Brittney Nava MD Constipation, unspecified constipation type (Primary Dx) 08/11/2024 Travel 08/10/[address] [address] Anthony Ruiz ANP Prior Authorization 08/04/2024 1:00 PM EDT Office Visit [facility] [address] [place] [phone] Nuvia Duarte Dental plaque (Primary Dx); Gingival recession, generalized; Missing teeth, acquired; Excessive attrition of teeth, generalized 08/04/2024 Travel 08/02/[address] [address] Anthony Ruiz ANP Referral 07/31/[facility] [address] [address] Anthony Ruiz ANP Essential hypertension 07/29/[address] [address] Anthony Ruiz ANP Med Refill 07/28/[address] [address] Anthony Ruiz ANP ranjeet recall 07/28/2024 Refill [facility] [address] [address] Anthony Ruiz ANP Neck pain 07/27/2024 Orders Only GENERIC EXTERNAL DATA DEPARTMENT Provider, Generic External Data 07/24/2024 Refill [facility] [address] [place] [address] Anthony Ruiz ANP Cervicalgia 07/22/2024 9:20 AM EDT Office Visit [facility] [address] [place] [phone] Samantha Kumar DO COPD exacerbation ([facility]) (Primary Dx) 07/22/2024 Travel from Last 3 Months Immunizations Immunization [...] Description 11/05/2024 2:30 PM EDT Office Visit [facility] [address] [place] [address] Hallie Tapia MD [address] [place] [address] 11/12/2024 9:30 AM EDT Clinical Support [address] [address] Azeb Hall, MARTIN [address] [place] [address] 01/11/2025 1:00 PM EST Office Visit [address] [address] Anthony Ruiz ANP [address] [place] [address] 02/03/2025 11:00 AM EST Medication Management [address] [address] Yuri Pierre, PharmD [address] [place] [phone] Health Maintenance Due Date Last Done Comments [...] 10/14/2024 Dental X-Ray: Full Mouth 09/12/2026 09/12/2023, 2 08/2018 Eye Exam 09/24/2026 09/24/2024, 08/0 09/2024, 09/24/2024, Additional history exists Colonoscopy 12/27/2026 12/27/2021 [...] Type 2 diabetes mellitus with hyperlipidemia (CMS/HCC) ([facility]) POCT GLUCOSE Routine 10/14/2024 1:52 PM EDT Type 2 diabetes mellitus with hyperlipidemia (CMS/HCC) ([facility]) REX SCREEN, IFA, W/REFL TITER AND PATTERN Routine 10/12/2024 2:10 PM EDT ACTIN (SMOOTH MUSCLE) ANTIBODY (IGG) Routine 10/12/2024 [...] POCT HGB A1C (10/14/2024 1:54 PM EDT) Hemoglobin A1C 6.6(A) 4.0 - 5.7 % QC Media Lot # [id number] Lot# Expiration Date 312, Blood 10/14/2024 1:54 PM EDT us Anthony PAGE POINT OF CARE TEST ENTER/EDIT OR DERABLES Final Result * POCT Glucose (10/14/2024 1:52 PM EDT) Glucose Blood, POC 121 60 - 200 mg/dL [employer] Media Lot # [id number] Lot# Expiration Date [id number] Blood Capillary blood specimen / Unknown 10/14/2024 1:52 PM EDT us Anthony PAGE POINT OF CARE TEST ENTER/EDIT OR DERABLES Final Result * (ABNORMAL) TSH with Reflex to Free T4 (10/12/2024 2:10 PM EDT) TSH reflex Free T4 6.80(H) 0.32 - 4.0 uIU/mL [facility] 10/12/2024 2:10 PM EDT 10/12/2024 2:10 PM EDT Generic External Data Provider LAB BLOOD ORDERAB LES Final Result Performing Organization Address [facility] Co de Phone Number [facility] [address] [place] [phone] * (ABNORMAL) Actin (Smooth Muscle) Antibody (IgG) (10/12/2024 2:10 PM EDT) Smooth Muscle Antibody 51(A) <20 U [facility] Comment:Reference Range: <20 U: Negative>or=20 U: [...] with AIH type 1.THIS TEST WAS PERFORMED AT:[employer] [id number] [place] [id number] CASAS MD,PHD 10/12/2024 2:10 PM EDT 10/12/2024 2:10 PM EDT Generic External Data Provider LAB BLOOD ORDERAB LES Final Result Performing Organization Address [facility] Co de Phone Number [facility] [address] [place] [phone] * Prothrombin Time-INR (10/12/2024 2:10 PM EDT) Prothrombin Time 10.9 10.9 - 12.4 SEC [facility] INTERNATIONAL NORM RATIO 1.0 0.9 - 1.1 [facility] Comment:INTERNATIONAL NORMAL IZED RATIO (INR) REFERENCE [...] ORDERAB LES Final Result Performing Organization Address [facility]/ZIP Co de Phone Number [facility] [address] [place] [phone] * C-reactive Protein (10/12/2024 2:10 PM EDT) Pathologist [facility] C Reactive Protein 0.31 < or = 0.50 mg/dL [facility] 10/12/2024 2:10 PM EDT 10/12/2024 2:10 PM EDT [employer] External Data Provider LAB BLOOD ORDERAB LES Final Result Performing Organization Address [facility] Co de Phone Number [facility] [address] [place] [phone] * (ABNORMAL) REX Screen,IFA, with Reflex to Titer and Pattern (10/12/2024 2:10 PM EDT) Pathologist [facility] Anti Nuclear Antibody Screen POSITIV E(A) NEGATIVE [facility] Comment:REX IFA is a first l ine screen for detecting thepresence of up to approximately 150 autoantibodies invarious autoimmune diseases. A positive REX IFA resultis suggestive of autoimmune disease and reflexes totiter and pattern. Further laboratory testing may beconsidered if clinically indicated.For additional information, please refer tohttp://education.[employer]/faq/MZJ537(This link is being provided for informational/educational purposes only.)THIS TEST WAS PERFORMED AT:[employer] [place] [phone] WARREN MD REX Titer 1:1280( A) titer [facility] Comment:Reference Range <1:4 0 Negative 1:40-1:80 Low Antibody Level >1:80 Elevated Antibody Level REX Pattern Nuclear , Homogen eous(A) [facility] Comment:Homogeneous pattern is associated with systemic lupuserythematosus (SLE), drug-induced lupus and juvenileidiopathic arthritis.AC-1: HomogeneousInternational Consensus on REX Patterns(https://doi.org/10.[facility]5/qxcu-5880-4926)THIS TEST WAS PERFORMED AT:[employer] [place] [phone] WARREN MD REX TITER 2 (REF LAB) [facility] REX Pattern 2 TNP [facility] REX TITER 3 [facility] REX PATTERN 3 [facility] 10/12/2024 2:10 PM EDT 10/12/2024 2:10 PM EDT Generic External Data Provider LAB BLOOD ORDERAB LES Final Result Performing Organization Address City/[facility]/ZIP Co de Phone Number [facility] [address] [place] [phone] * T4, Free (10/12/2024 2:10 PM EDT) Free T4 (Free Thyroxine) 0.99 0.71 - 1.85 ng/dL [facility] 10/12/2024 2:10 PM EDT 10/12/2024 2:10 PM EDT Generic External Data Provider LAB BLOOD ORDERAB LES Final Result Performing Organization Address [facility]/ZIP Co de Phone Number [facility] [address] [place] [phone] * Lipase (10/12/2024 2:10 PM EDT) Lipase 20 8 - 78 U/L [facility] 10/12/2024 2:10 PM EDT 10/12/2024 2:10 PM EDT us Generic External Data Provider LAB BLOOD ORDERAB LES Final Result Performing Organization Address [facility] Co de Phone Number [facility] [address] [place] [phone] * (ABNORMAL) Hemoglobin A1c (10/12/2024 2:10 PM EDT) Hemoglobin A1c 6.5(H) <6.0 % [facility] Comment:Hemoglobin A1C Refer ence Range Adults: 4.8 - 6.0 % Non diabetic: < 6.0 % Goal: < 7.0 %Additional Action Suggested: > 8.0 %Note: Hemoglobin A1c results are invalid for patients with abnormal amounts of HbF. Blood transfusions may impact the HbA1c concentration in the patient sample. Estimated Average Glucose 140 mg/dL [facility] Comment:eAG = Estimated ave rage glucose which is %A1C expressed asaverage glucose, using the formula of the Z6T-[id number] Glucose study (ADAG), Diabetes Care, Vol.31,#8,Sep. 2007 10/12/2024 2:10 PM EDT 10/12/2024 2:10 PM EDT us Generic External Data Provider LAB BLOOD ORDERAB LES Final Result Performing Organization Address [facility] Co de Phone Number [facility] [address] [place] [phone] * Ferritin (10/12/2024 2:10 PM EDT) Ferritin 69 10 - 250 ng/mL [facility] 10/12/2024 2:10 PM EDT 10/12/2024 2:10 PM EDT us Generic External Data Provider LAB BLOOD ORDERAB LES Final Result Performing Organization Address [facility] Co de Phone Number [facility] [address] [place] [phone] * Amylase (10/12/2024 2:10 PM EDT) Amylase 36 28 - 100 U/L [facility] 10/12/2024 2:10 PM EDT 10/12/2024 2:10 PM EDT us Generic External Data Provider LAB BLOOD ORDERAB LES Final Result Performing Organization Address City/State/[facility] Co de Phone Number [facility] [address] [place] [phone] * CT Lung Screening Low dose (10/09/2024 1:18 PM EDT) Anatomical Region Laterality Modality Lung Computed Tomogra phy 10/09/2024 1:18 PM EDT Narrative 10/09/2024 1:20 PM EDT [address] [address] [address] Scan Report Signed Patient: Nuvia Fay MR #: [id number] : 1960 Acct:[id number] Age/Sex: 64 / F ADM Date: 10/08/24 Loc: HO.CT Attending Dr: Ron Preciado MD Ordering Physician: Ron Preciado MD Date of Service: 10/08/24 Procedure(s): CT lung screening Accession Number(s): [id number] cc: Ron Preciado MD; ANTHONY RUIZ NP Report Number: [id number]: Total DLP = 64.00 mGy-cm CLINICAL HISTORY: [...] 10/09/24 1319 DD/ 1318 TD/TT: 10/09/24 1318 Nurse Clinician: Procedure Note Donotuseinterpreter, Image - 10/09/[address] [address] [address] Scan Report Signed Patient: Nuvia Fay EMR #: [id number] : 1960cct:[id number] Age/Sex: 64 / FADM Date: 10/08/24 Loc: .CT Attending Dr: Ron Preciado MD Ordering Physician: Ron Preciado MD Date of Service: 10/08/24 Procedure(s): CT lung screening Accession Number(s): [id number] cc: Ron Preciado MD; ANTHONY RUIZ NP Report Number: [id number]: Total DLP = 64.00 mGy-cm CLINICAL HISTORY: [...] 10/09/24 1319 DD/ 1318 TD/TT: 10/09/24 1318 Nurse Clinician: [facility] External Provider IMG CT PROCEDURES Edited [...] - 10/01/2024 10:43 AM EDT .[employer] cup Lot#[id number] Exp. 11/23/25 Internal Pass Control Anthony PAGE POINT OF CARE TEST ENTER/EDIT OR DERABLES Final Result * Influenza A (ID NOW Rapid Molecular) (08/19/2024 9:20 AM EDT) Only the most recent of2 resultswithin the time period is included. Influenza A Negative Negative, Indeterminate [facility] Swab 08/19/2024 9:2 0 AM EDT Ramon Damon MD POINT OF CARE TEST ENTER/EDIT OR DERABLES Final Result [facility] [address] [place] [phone] * Influenza B (ID NOW Rapid Molecular) (08/19/2024 9:19 AM EDT) Only the most recent of2 resultswithin the time period is included. Influenza B Negative Negative, Indeterminate [facility] Swab 08/19/2024 9:19 AM EDT Result [facility] Ramon Damon MD POINT OF CARE TEST ENTER/EDIT OR DERABLES Final Result [facility] [address] [place] [phone] * POCT Rapid COVID Ag (08/19/2024 9:11 AM EDT) Rapid COVID Ag Negative Swab 08/19/2024 9:11 AM EDT Result [facility] Ramon Damon MD POINT OF CARE TEST ENTER/EDIT OR DERABLES Final Result * (ABNORMAL) Syphilis Antibodies (DPH) (08/06/2024) Syphilis Abs Reactive(A) Borderline, Nonreactive, Weakly Reactive, Inconclusive, Specimen unsatisfactory for evaluation Syphilis RPR Nonreactive Blood Venous blood specimen / Unknown 08/06/2024 Result [facility] Historical Provider LAB BLOOD ORDERABLES Kelsey l Result * Hepatitis C Antibody ([place] DPH) (08/06/2024) Hepatitis C Ab Nonreactive Blood 08/06/2024 Result [facility] Historical Provider LAB BLOOD ORDERABLES Kelsey l Result * HIV Ab/Ag ([place] DPH) (08/06/2024) HIV Ag/Ab Nonreactive Blood 08/06/2024 Result [facility] Historical Provider LAB BLOOD ORDERABLES Kelsey l Result * Referral to Rheumatology (08/06/2024) 08/06/2024 us Anthony Ruiz ANP OUTPATIENT REFERRAL ORDERABLES F inal Result * US RENAL BI (07/29/2024 12:57 PM EDT) Anatomical Region Laterality Modality Abdomen Ultrasound 07/29/2024 12:5 7 PM EDT Narrative 07/29/2024 12:58 PM EDT [address] [address] Ultrasound Report Signed Patient: Nuvia Fay MR #: [id number] : 1960 Acct:[id number] Age/Sex: 63 / F ADM Date: 07/29/24 Loc: HO.US Attending Dr: Umm Ellsworth ANP-C Ordering Physician: Rosemary Moses Date of Service: 07/29/24 Procedure(s): US renal BI Accession Number(s): [id number] cc: Rosemary Moses; ANTHONY RUIZ NP CLINICAL [...] 07/29/24 1258 DD/ 1257 TD/TT: 07/29/24 1257 Nurse Clinician: Procedure Note Donotuseinterpreter, Image - 07/29/[address] [address] Ultrasound Report Signed Patient: Nuvia Fay EMR #: [id number] : 1Acct:[id number] Age/Sex: 63 / FADM Date: 07/29/24 Loc: HO.US Attending Dr: Umm Ellsworth ANP-C Ordering Physician: Rosemary Moses Date of Service: 07/29/24 Procedure(s): US renal BI Accession Number(s): [id number] cc: Rosemary Moses; ANTHONY RUIZ NP CLINICAL [...] 07/29/24 1258 DD/ 1257 TD/TT: 07/29/24 1257 Nurse Clinician: us [facility] External Provider IMG US PROCEDURES Edited Result - Final * High Sensitivity Troponin I (07/27/2024 1:46 PM EDT) TROPONIN I HIGH SENSITIVITY <2.7 <3.5 - 17.0 ng/L [facility] Comment:The Bailey high sens itivity Troponin-I results should beused in conjunction with other diagnostic information suchas ECG, clinical observations and information, and patientsymptoms to aid in the diagnosis of GA. 07/27/2024 1:46 PM EDT 07/27/2024 1:58 PM EDT us Generic External Data Provider LAB BLOOD ORDERAB LES Final Result [facility] [address] [place] [phone] * (ABNORMAL) CBC auto differential (07/27/2024 1:46 PM EDT) White Blood Count 7.3 4.8 - 10.8 X10*3/uL [facility] Red Blood Count 4.60 4.20 - 5.50 X10*6/uL [facility] Hemoglobin 14.6 12.0 - 16.0 g/dl [facility] Hematocrit 43.5 37.0 - 47.0 % [facility] Mean Corpuscular Volume 94.6 80.0 - 98.0 fL [facility] Mean Corpuscular Hemoglobin 31.7 27.0 - 33.0 pg [facility] Mean Corpuscular HGB Conc 33.6 31.0 - 35.0 g/dl [facility] Red Cell Distribution Width 13.7 11.0 - 16.0 % [facility] Platelet Count 301 160 - 400 X10*3/uL [facility] Mean Platelet Volume 9.4 9.4 - 12.3 fL [facility] Neutrophils Percent Auto 44.2(L) 45 - 73 % [facility] Imm Gran Pct Auto 0.3 0.0 - 0.4 % [facility] Lymphocytes Percent Auto 45.7(H) 20 - 40 % [facility] Monocytes Percent Auto 5.5 2 - 11 % [facility] Eosinophils Percent Auto 3.6 0 - 4 % [facility] Basophils Percent Auto 0.7 0 - 2 % [facility] NRBC Pct Auto 0.0 0.0 - 0.2 /100WBC [facility] Neutrophils Absolute Auto 3.2 2.0 - 8.3 x10*3/uL [facility] Imm Gran Abs Auto 0.02 0.00 - 0.03 X10*3/uL [facility] Lymphocytes Absolute Auto 3.3 1.2 - 4.9 X10*3/uL [facility] Monocytes Absolute Auto 0.4 0.1 - 1.2 X10*3/uL [facility] Eosinophils Absolute Auto 0.3 0.0 - 0.4 X10*3/uL [facility] Basophils Absolute Auto 0.1 0.0 - 0.2 X10*3/uL [facility] NRBC Abs Auto 0.000 0.0 - 0.012 X10*3/uL [facility] 07/27/2024 1:46 PM EDT 07/27/2024 1:58 PM EDT us Generic External Data Provider LAB BLOOD ORDERAB LES Final Result [facility] [address] [place] [phone] * (ABNORMAL) Basic Metabolic Panel (07/27/2024 1:46 PM EDT) Sodium 141 135 - 145 mmol/L [facility] Potassium 3.7 3.3 - 5.1 mmol/L [facility] Chloride 111(H) 96 - 108 mmol/L [facility] Carbon Dioxide 26 22 - 29 mmol/L [facility] Anion Gap 8(L) 12 - 20 [facility] Urea Nitrogen (BUN) 14 9 - 16 mg/dL [facility] Creatinine, Serum 0.94 0.5 - 1.4 mg/dL [facility] Creatinine Clr Calc Pharmacy TNP [facility] Comment:Unable to calculate eCrCL; all parameters not provided. Estimated Glomerular Filt Rate >60 [facility] Comment:Chronic Kidney Disea se: Estimated GFR < 60 mL/min/1.33d4Alqven Kidney Disease: Estimated GFR < 15 mL/min/1.73m2 Glucose 161(H) 60 - 115 mg/dL [facility] Calcium 9.2 8.4 - 10.2 mg/dL [facility] 07/27/2024 1:46 PM EDT 07/27/2024 1:58 PM EDT us Generic External Data Provider LAB BLOOD ORDERAB LES Final Result [facility] [address] [place] [phone] * XR Chest 2 Views (07/27/2024 1:01 PM EDT) Only the most recent of2 resultswithin the time period is included. Anatomical Region Laterality Modality Chest Radiographic Griselda ging 07/27/2024 1:01 PM EDT Narrative 07/27/2024 2:08 PM EDT [address] [address] XRay Report Signed Patient: Nuvia Fay MR #: [id number] : 1960 Acct:[id number] Age/Sex: 63 / F ADM Date: 07/27/24 Loc: .ED Attending Dr: Ordering Physician: Generic ED Physician Date of Service: 07/27/24 Procedure(s): XR chest 2V Accession Number(s): [id number] cc: Generic ED Physician; ANTHONY RUIZ NP [...] 07/27/24 1405 DD/ 1301 TD/TT: 07/27/24 1401 Nurse Clinician: Procedure Note Donotuseinterpreter, Image - 07/27/2024 [id number] [place] [address] XRay Report Signed Patient: Nuvia Fay EMR #: [id number] : [id number]:[id number] Age/Sex: 63 / FADM Date: 07/27/24 Loc: .ED Attending Dr: Ordering Physician: Generic ED Physician Date of Service: 07/27/24 Procedure(s): XR chest 2V Accession Number(s): [id number] cc: Generic ED Physician; ANTHONY RUIZ DIRECTOR BROADCAST EXAMINATION: XR CHEST 2 VIEWS HISTORY: CP [...] 07/27/24 1405 DD/ 1301 TD/TT: 07/27/24 1401 Nurse Clinician: [facility] External Provider IMG XR PROCEDURES Final [...] 10:18 AM EDT) Triglycerides 122 <150 mg/dL [facility] Comment:Desirable Triglyceri de: less than 150 mg/dLBorderline High Triglyceride 150-199 mg/dLHigh Triglyceride: 200-499 mg/dLVery High Triglyceride: greater than or equal to 5OO mg/dL Cholesterol 216(H) <200 mg/dL [facility] Comment:Desirable Cholestero l: less than 200 mg/dLBorderline High Cholesterol: 200-239 mg/dLHigh Cholesterol: greater than 239 mg/dL LDL Cholesterol Calculated 128(H) <100 mg/dL [facility] Comment:Desirable LDL: less than 100 mg/dLNear Optimal/Above Optimal LDL: 110- 129 mg/dLBorderline High LDL: 130-159 mg/dLHigh LDL: 160-189 mg/dLVery High LDL: greater than or equal to 190 mg/dL HDL Cholesterol 64 >40 mg/dL [facility] Comment:Desirable HDL: great er than 40 mg/dL Note: This HDL assay may give artificially low results in patients with liver disease. Blood Venous blood specimen / Unknown 06/18/2024 10:18 AM EDT 06/18/2024 11:08 AM EDT Anthony Ruiz [facility] BLOOD ORDERABLES Final Resul t [facility] [address] [place] [address] [phone] * BI Mammogram Screening Tomosynthesis Bilateral (04/12/2024 1:48 PM EST) Anatomical Region Laterality Modality Breast Bilateral Mammography 04/12/2024 1:48 PM EST Narrative 04/17/2024 12:38 PM EST [facility] [address] [place] [address] Mammography Report Signed Patient: Nuvia Fay MR #: [id number] : 1960 Acct:[id number] Age/Sex: 63 / F ADM Date: 04/12/24 Loc: HO.MAMMO Attending Dr: Monica Lozano CNM Ordering Physician: Monica Lozano CNM Results: 2Beni gn Findings Date of Service: 04/12/24 Follow Up: 1 Year From Orig inal Mammogram Procedure(s): MM tomosynthesis screening BI Accession Number(s): [id number] cc: Monica Lozano CNM; ANTHONY RIUZ NP EXAMINATION: MM SCREENING DIGITAL BREAST TOMOSYNTHESIS, [...] 12:35 PM [facility] Dictated By: Cherrie Roberts DO Signed By: <Electronically signed by Cherrie Roberts DO in OV> 04/17/24 1235 DD/ 1348 TD/TT: 04/12/24 1405 Nurse Clinician: Procedure Note Donotuseinterpreter, Image - 04/17/2024 [facility] [address] [place], [place] [address] Mammography Report Signed Patient: Nuvia Fay EMR #: [id number] : 1960cct:[id number] Age/Sex: 63 / FADM Date: 04/12/24 Loc: HO.MAMMO Attending Dr: Monica Lozano CNM Ordering Physician: Monica Lozanoesults: 2Beni gn Findings Date of Service: 04/12/24Follow Up: 1 Year From Orig inal Mammogram Procedure(s): MM tomosynthesis screening BI Accession Number(s): [id number] cc: Monica Lozano CNM; ANTHONY RUIZ NP [...] 04/17/24 1235 DD/ 1348 TD/TT: 04/12/24 1405 Nurse Clinician: [facility] External Provider IM BI PROCEDURES Edited Result - Final * Albumin, Random Urine W/Creatinine (01/02/2024 8:44 AM EST) Creatinine, Urine 47.20 mg/dL [facility] Microalbumin Urine 7.0 mg/L [facility] Microalbum Creatinine Ratio Ur 14.8 <30 ug/mg cr [facility] Comment:Albumin/Creatinine R atio Reference Ranges: Normal: < 30 ug/mg creatinine Microalbuminuria: 30 - 300 ug/mg creatinineClinical Albuminuria: > 300 ug/mg creatinine Urine (Urine, Random) 01/02/2024 8:44 AM EST 01/02/2024 11:09 AM EST us Anthony PAGE LAB URINE ORDERABLES Final Resul t Performing Organization Address City/[facility]/ZIP Co de Phone Number [facility] [address] [place] [address] [phone] * (ABNORMAL) Hm Colonoscopy (12/27/2021) Colonoscopy Abnormal(A ) Normal Historical Provider MD HEALTH MAINTENANCE Final Result * HPV E6/E7 RFLX ALFRED 16 18/45 (05/09/2020 11:19 AM EDT) HPV mRNA E6/E7 rflx Not Detected Not Detected [facility] Comment: Methodology: Edger Saw Operator-Mediated Amplification This assay detects E6/E7 viral messenger RNA (mRNA) from 14 high-risk HPV types (16,18,31,33,35,39,45,51,52,56,58,59,66,68). The analytical performance characteristics of this assay have been determined by [employer]. The modifications have not been cleared or approved by the FDA. This assay has been validated pursuant to the CLIA regulations and is used for clinical purposes. For additional information, please refer to http://education.Re.Mu.Indige[employer]us/faq/BLE468w0 (This link if provided for information/ educational purposes only.) THIS TEST WAS PERFORMED AT: [employer] [address] [place] [address] FLOOR,[place] [address] HERNAN WARREN MD 05/09/2020 11:1 9 AM EDT [facility] HISTORICAL/NON ORDERABLE LABS Fi nal Result Performing Organization Address City/[facility]/ZIP Co de Phone Number [facility] [address] from Last 3 Months or Most Recently Relevant to Health Maintenance Insurance [facility] ONE CARE < 65 [facility] Care Teams Tire Cord Weaver Relationship Specialty Start Date End Date Anthony Ruiz ANP [address] [place] [address] PCP - General Family Medicine 09/23/19 Yuri Pierre, MikeD [address] [place] [address] [phone] Pharmacist Internal Medicine 05/05/24 Basilio Hall MD [address] [place] [address] Cardiology 05/17/24 Ron Preciado MD [address] [place] [address] Pulmonary Disease 05/17/24
--- OUTSIDE RECORDS SUMMARY | 2024-10-22 11:29 | XMS_ITS | Encounter Summary ---
Author Organization [employer] Address 75 [facility] 7t [place] [address] Care Team Providers Care Wardrobe Consultant Name Role Phone Sariah Vickers Primary Care Provider [phone] Yuri Pierre PharmD Unavailable [phone] Basilio Hall MD Unavailable [phone] Ron Preciado MD Unavailable [phone] Reason for Visit * Reason Comments Med Refill Encounter Details Date Type Department Care Team (Late st Contact Info) Description 10/24/2023 Refill [facility] [address] [place] [address] Sariah Vickers ANP [address] [place] [address] Neck pain Social History Tobacco Use Types [...] 11/05/2024 2:30 PM EDT Office Visit [address] [address] Hallie Tapia MD [address] [place] [address] 11/12/2024 9:30 AM EDT Clinical Support [address] [address] Azeb Hall RN 505 [place] [address] 01/11/2025 1:00 PM EST Office Visit [address] [address] Sariah Vickers, ANP [address] [place] [address] 02/03/2025 11:00 AM EST Medication Management [address] [address] Yuri Pierre, PharmD [address] [place] [address] documented as of this encounter Goals Goal [...] documented as of this encounter Care Teams Wardrobe Consultant Relationship Specialty Start Date End Date Sariah Vickers ANP [address] [place] [address] PCP - General Family Medicine 09/23/19 Yuri Pierre PharmD [address] [place] [address] Pharmacist Internal Medicine 05/05/24 Basilio Hall MD [address] [place] [address] Cardiology 05/17/24 Ron Preciado MD [address] [place] [address] Pulmonary Disease 05/17/24 documented as of this encounter
--- OUTSIDE RECORDS SUMMARY | 2024-10-22 11:29 | XMS_ITS | Encounter Summary ---
Author Organization [employer] Address 75 [facility] 7t [place] [address] Care Team Providers Care Director Of Investigations Name Role Phone Sariah Vickers Primary Care Provider [phone] Yuri Pierre PharmD Unavailable [phone] Basilio Hall MD Unavailable [phone] Ron Preciado MD Unavailable [phone] Reason for Visit * Reason Comments Med Refill Encounter Details Date Type Department Care Team (Late st Contact Info) Description 11/14/[address] [facility] [address] [place] [address] Sariah Vickers ANP 230 [place] [address] Neck pain Social History Tobacco Use Types [...] 11/05/2024 2:30 PM EDT Office Visit [address] [address] Hallie Tapia MD [address] [place] [address] 11/12/2024 9:30 AM EDT Clinical Support [address] [address] Azeb Hall RN 505 [place] [address] 01/11/2025 1:00 PM EST Office Visit [address] [address] Sariah Vickers, ANP [address] [place] [address] 02/03/2025 11:00 AM EST Medication Management [address] [address] Yuri Pierre, PharmD [address] [place] [address] documented as of this encounter Goals Goal [...] of this encounter Care Teams Director Of Investigations Relationship Specialty Start Date End Date Sariah Vickers ANP [address] [place] [address] PCP - General Family Medicine 09/23/19 Yuri Pierre PharmD [address] [place] [address] Pharmacist Internal Medicine 05/05/24 Basilio Hall MD [address] [place] [address] Cardiology 05/17/24 Ron Preciado MD [address] [place] [address] Pulmonary Disease 05/17/24 documented as of this encounter
--- OUTSIDE RECORDS SUMMARY | 2024-10-22 11:29 | XMS_ITS | Encounter Summary ---
Author Organization [employer] Address 75 [facility] 7t [place] [address] Care Team Providers Care Jail Keeper Name Role Phone Sariah Vickers Primary Care Provider [phone] Yuri Pierre PharmD Unavailable [phone] Basilio Hall MD Unavailable [phone] Ron Preciado MD Unavailable [phone] Reason for Visit * Reason Comments Med Refill Encounter Details Date Type Department Care Team (Late st Contact Info) Description 11/26/2023 Refill [facility] 230 [place] [address] Sariah Vickers ANP 230 [place] [address] Vertigo Social History Tobacco Use Types Packs/Day [...] 11/05/2024 2:30 PM EDT Office Visit [address] [address] Hallie Tapia MD [address] [place] [address] 11/12/2024 9:30 AM EDT Clinical Support [address] [address] Azeb Hall RN 505 [place] [address] 01/11/2025 1:00 PM EST Office Visit [address] [address] Sariah Vickers, ANP [address] [place] [address] 02/03/2025 11:00 AM EST Medication Management [address] [address] Yuri Pierre, PharmD [address] [place] [address] documented as of this encounter Goals Goal [...] documented as of this encounter Care Teams Jail Keeper Relationship Specialty Start Date End Date Sariah Vickers ANP 230 [place] [address] PCP - General Family Medicine 09/23/19 Yuri Pierre, MikeD [address] [place] [address] Pharmacist Internal Medicine 05/05/24 Basilio Hall MD [address] [place] [address] Cardiology 05/17/24 Ron Preciado MD [address] [place] [address] Pulmonary Disease 05/17/24 documented as of this encounter
--- OUTSIDE RECORDS SUMMARY | 2024-10-22 11:29 | XMS_ITS | Encounter Summary ---
Author Organization [employer] Address 75 [facility] 7t [place] [address] Care Team Providers Care Adjunct Faculty Name Role Phone Sariah Vickers Primary Care Provider [phone] Yuri Pierre PharmD Unavailable [phone] Basilio Hall MD Unavailable [phone] Ron Preciado MD Unavailable [phone] Reason for Visit * Reason Onset Date Comments Med Refill 01/09/2024 Encounter Details Date Type Department Care Team (Late st Contact Info) Description 01/09/2024 Telephone [facility] 230 [place] [address] Sariah Vickers ANP [address] [place], [place] [phone] Med Refill Social History Tobacco Use Types [...] Description 11/05/2024 2:30 PM EDT Office Visit [address] [address] Hallie Tapia MD [address] [place] [address] 11/12/2024 9:30 AM EDT Clinical Support [address] [address] Azeb Hall RN 505 [place] [address] 01/11/2025 1:00 PM EST Office Visit [address] [address] Sariah Vickers, KAYLEE [address] [place] [address] 02/03/2025 11:00 AM EST Medication Management [address] [address] Yuri Pierre, PharmD [address] [place] [address] documented as of this encounter Goals Goal [...] documented as of this encounter Care Teams Adjunct Faculty Relationship Specialty Start Date End Date aSriah Vickers ANP [address] [place] [address] PCP - General Family Medicine 09/23/19 Yuri Pierre, MikeD [address] [place] [address] Pharmacist Internal Medicine 05/05/24 Basilio Hall MD [address] [place] [address] Cardiology 05/17/24 Ron Preciado MD [address] [place] [address] Pulmonary Disease 05/17/24 documented as of this encounter
--- OUTSIDE RECORDS SUMMARY | 2024-10-22 11:29 | XMS_ITS | Encounter Summary ---
Author Organization [employer] Address 75 [facility] 7t [place] [address] Care Team Providers Care Freelance Court Reporter Name Role Phone Sariah Vickers Primary Care Provider [phone] Yuri Pierre PharmD Unavailable [phone] Basilio Hall MD Unavailable [phone] Ron Preciado MD Unavailable [phone] Reason for Visit * Reason Comments Med Refill Encounter Details Date Type Department Care Team (Late st Contact Info) Description 01/04/2024 Refill [facility] [address] [place] [address] Sariah Vickers ANP 230 [place] [address] Cervicalgia Social History Tobacco Use Types Packs/Day [...] Description 11/05/2024 2:30 PM EDT Office Visit [address] [address] Hallie Tapia MD [address] [place] [address] 11/12/2024 9:30 AM EDT Clinical Support [address] [address] Azeb Hall RN [address] [place] [address] 01/11/2025 1:00 PM EST Office Visit [address] [address] Sariah Vickers, KAYLEE [address] [place] [address] 02/03/2025 11:00 AM EST Medication Management [address] [address] Yuri Pierre, PharmD [address] [place] [address] documented as of this encounter Goals Goal [...] documented as of this encounter Care Teams Freelance Court Reporter Relationship Specialty Start Date End Date Sariah Vickers ANP 230 [place] [address] PCP - General Family Medicine 09/23/19 Yuri Pierre, MikeD [address] [place] [address] Pharmacist Internal Medicine 05/05/24 Basilio Hall MD [address] [place] [address] Cardiology 05/17/24 Ron Preciado MD [address] [place] [address] Pulmonary Disease 05/17/24 documented as of this encounter
--- OUTSIDE RECORDS SUMMARY | 2024-10-22 11:29 | XMS_ITS | Encounter Summary ---
Author Organization [employer] Address 75 [facility] 7t [place] [address] Care Team Providers Care Vice Chairman Name Role Phone Sariah Vickers Primary Care Provider [phone] Yuri Pierre PharmD Unavailable [phone] Basilio Hall MD Unavailable [phone] Ron Preciado MD Unavailable [phone] Reason for Visit * Reason Comments Med Refill Encounter Details Date Type Department Care Team (Late st Contact Info) Description 06/17/2024 Refill [facility] 230 [place] [address] Sariah Vickers ANP 230 [place], [place] [phone] Neck pain Social History Tobacco Use Types [...] Description 11/05/2024 2:30 PM EDT Office Visit [address] [address] Hallie Tapia MD [address] [place] [address] 11/12/2024 9:30 AM EDT Clinical Support [address] [address] Azeb Hall RN [address] [place] [address] 01/11/2025 1:00 PM EST Office Visit [address] [address] Sariah Vickers, KAYLEE [address] [place] [address] 02/03/2025 11:00 AM EST Medication Management [address] [address] Yuri Pierre, PharmD [address] [place] [address] documented as of this encounter Goals Goal [...] documented as of this encounter Care Teams Vice Chairman Relationship Specialty Start Date End Date Sariah Vickers ANP [address] [place] [address] PCP - General Family Medicine 09/23/19 Yuri Pierre, MikeD [address] [place] [address] Pharmacist Internal Medicine 05/05/24 Basilio Hall MD [address] [place] [address] Cardiology 05/17/24 Ron Preciado MD [address] [place] [address] Pulmonary Disease 05/17/24 documented as of this encounter
--- OUTSIDE RECORDS SUMMARY | 2024-10-22 11:29 | XMS_ITS | Encounter Summary ---
Author Organization [employer] Address 75 [facility] 7t [place] [address] Care Team Providers Care Orientation & Mobility Specialist Name Role Phone Sariah Vickers Primary Care Provider [phone] Yuri Pierre PharmD Unavailable [phone] Basilio Hall MD Unavailable [phone] Ron Preciado MD Unavailable [phone] Reason for Visit * Reason Comments Med Refill Encounter Details Date Type Department Care Team (Late st Contact Info) Description 10/03/2023 Refill [facility] [address] [place] [address] Sariah Vickers ANP [address] [place], [place] [phone] Chronic SI joint pain Social History Tobacco [...] 11/05/2024 2:30 PM EDT Office Visit [address] [address] Hallie Tapia MD [address] [place] [address] 11/12/2024 9:30 AM EDT Clinical Support [address] [address] Azeb Hall RN 505 [place] [address] 01/11/2025 1:00 PM EST Office Visit [address] [address] Sariah Vickers, KAYLEE [address] [place] [address] 02/03/2025 11:00 AM EST Medication Management [address] [address] Yuri Pierre, PharmD [address] [place] [address] documented as of this encounter Goals Goal [...] documented as of this encounter Care Teams Orientation & Mobility Specialist Relationship Specialty Start Date End Date Sariah Vickers ANP [address] [place] [address] PCP - General Family Medicine 09/23/19 Yuri Pierre, MikeD [address] [place] [address] Pharmacist Internal Medicine 05/05/24 Basilio Hall MD [address] [place] [address] Cardiology 05/17/24 Ron Preciado MD [address] [place] [address] Pulmonary Disease 05/17/24 documented as of this encounter
--- OUTSIDE RECORDS SUMMARY | 2024-10-22 11:29 | XMS_ITS | Encounter Summary ---
Author Organization [employer] Address 75 [facility] 7t [place] [address] Care Team Providers Care Board Member Name Role Phone Sariah Vickers Primary Care Provider [phone] Yuri Pierre PharmD Unavailable [phone] Basilio Hall MD Unavailable [phone] Ron Preciado MD Unavailable [phone] Reason for Visit * Reason Comments Med Refill Encounter Details Date Type Department Care Team (Late st Contact Info) Description 11/24/2023 Refill [facility] MEDICINE 230 [place] [address] Sariah Vickers ANP 230 [place] [address] Vertigo Social History Tobacco Use Types Packs/Day [...] Description 11/05/2024 2:30 PM EDT Office Visit [address] [address] Hallie Tapia MD [address] [place] [address] 11/12/2024 9:30 AM EDT Clinical Support [address] [address] Azeb Hall RN 505 [place] [address] 01/11/2025 1:00 PM EST Office Visit [address] [address] Sariah Vickers, ANP [address] [place] [address] 02/03/2025 11:00 AM EST Medication Management [address] [address] Yuri Pierre, PharmD [address] [place] [address] documented as of this encounter Goals Goal [...] documented as of this encounter Care Teams Board Member Relationship Specialty Start Date End Date Sariah Vickers ANP 230 [place] [address] PCP - General Family Medicine 09/23/19 Yuri Pierre, MikeD [address] [place] [address] Pharmacist Internal Medicine 05/05/24 Basilio Hall MD [address] [place] [address] Cardiology 05/17/24 Ron Preciado MD [address] [place] [address] Pulmonary Disease 05/17/24 documented as of this encounter
--- OUTSIDE RECORDS SUMMARY | 2024-10-22 11:29 | XMS_ITS | Encounter Summary ---
Author Organization [employer] Address 75 [facility] 7t [place] [address] Care Team Providers Care Clinical Trials Specialist Name Role Phone Anthony Ruiz Primary Care Provider [phone] Yuri Pierre PharmD Unavailable [phone] Basilio Hall MD Unavailable [phone] Ron Preciado MD Unavailable [phone] Encounter Details Date Type Department Care Team (Late st Contact Info) Description 09/28/2024 Orders Only [facility] MEDICINE 230 [place] [address] Anthony Ruiz ANP 230 [place] [address] Social History Tobacco Use Types Packs/Day Years [...] 11/05/2024 2:30 PM EDT Office Visit [address] [address] Hallie Tapia MD [address] [place] [address] 11/12/2024 9:30 AM EDT Clinical Support [address] [address] Azeb Hall RN 505 [place] [address] 01/11/2025 1:00 PM EST Office Visit [address] [address] Anthony Ruiz ANP [address] [place] [address] 02/03/2025 11:00 AM EST Medication Management [address] [address] Yuri Pierre, PharmD [address] [place] [address] documented as of this encounter Goals Goal [...] PM EDT Narrative 10/09/2024 1:20 PM EDT [address] [address] [address] Scan Report Signed Patient: Nuvia Fay MR #: [id number] : 1960 Acct:[id number] Age/Sex: 64 / F ADM Date: 10/08/24 Loc: HO.CT Attending Dr: Ron Preciado MD Ordering Physician: Ron Preciado MD Date of Service: 10/08/24 Procedure(s): CT lung screening Accession Number(s): [id number] cc: Ron Preciado MD; ANTHONY RUIZ NP Report Number: [id number]: Total DLP = 64.00 mGy-cm CLINICAL HISTORY: [...] 10/09/24 1319 DD/ 1318 TD/TT: 10/09/24 1318 Certified Financial Planner: Procedure Note Donotuseinterpreter, Image - 10/09/[address] [address] [address] Scan Report Signed Patient: Nuvia Fay EMR #: [id number] : 1Acct:[id number] Age/Sex: 64 / FADM Date: 10/08/24 Loc: HO.CT Attending Dr: Ron Preciado MD Ordering Physician: Ron Preciado MD Date of Service: 10/08/24 Procedure(s): CT lung screening Accession Number(s): [id number] cc: Ron Preciado MD; ANTHONY RUIZ NP Report Number: [id number]: Total DLP = 64.00 mGy-cm CLINICAL HISTORY: [...] 10/09/24 1319 DD/ 1318 TD/TT: 10/09/24 1318 Certified Financial Planner: [facility] External Provider IMG CT PROCEDURES Edited Result - Final documented in this encounter Visit Diagnoses Not on filedocumented in this encounter Additional Health Concerns Assessment Noted Time PHQ-9 Depression Total Score: 12 024 2:58 PM EDT documented as of this encounter Care Teams Clinical Trials Specialist Relationship Specialty Start Date End Date Anthony Ruiz ANP 230 [place] [address] PCP - General Family Medicine 09/23/19 Yuri Pierre, MikeD 230 [place] [address] Pharmacist Internal Medicine 05/05/24 Basilio Hall MD 596 [place] [address] Cardiology 05/17/24 Ron Preciado MD [address] [place] [address] Pulmonary Disease 05/17/24 documented as of this encounter
--- OUTSIDE RECORDS SUMMARY | 2024-10-22 11:29 | XMS_ITS | Encounter Summary ---
Author Organization [employer] Address 75 [facility] 7t [place] [address] Care Team Providers Care Biscuit Packer Name Role Phone Sariah Vickers Primary Care Provider [phone] Yuri Pierre PharmD Unavailable [phone] Basilio Hall MD Unavailable [phone] Ron Preciado MD Unavailable [phone] Reason for Visit * Reason Comments Med Refill Encounter Details Date Type Department Care Team (Late st Contact Info) Description 12/19/2022 Refill [facility] MEDICINE 230 [place] [address] Sariah Vickers ANP 230 [place] [address] Vertigo Social History Tobacco Use Types Packs/Day [...] Description 11/05/2024 2:30 PM EDT Office Visit [address] [address] Hallie Tapia MD [address] [place] [address] 11/12/2024 9:30 AM EDT Clinical Support [address] [address] Azeb Hall, RN 505 [place] [address] 01/11/2025 1:00 PM EST Office Visit [address] [address] Sariah Vickers ANP [address] [place] [address] 02/03/2025 11:00 AM EST Medication Management [address] [address] Yuri Pierre, PharmD [address] [place] [address] documented as of this encounter Goals Goal [...] giddiness documented in this encounter Care Teams Biscuit Packer Relationship Specialty Start Date End Date Sariah Vickers ANP 230 [place] [address] PCP - General Family Medicine 09/23/19 Yuri Pierre, MikeD [address] [place] [address] Pharmacist Internal Medicine 05/05/24 Basilio Hall MD [address] [place] [place] [address] Cardiology 05/17/24 Ron Preciado MD [address] [place] [address] Pulmonary Disease 05/17/24 documented as of this encounter
--- OUTSIDE RECORDS SUMMARY | 2024-10-22 11:29 | XMS_ITS | Encounter Summary ---
Author Organization [employer] Address 75 [facility] 7t [place] [address] Care Team Providers Care Mill Beam Fitter Name Role Phone Sariah Vickers Primary Care Provider [phone] Yuri Pierre PharmD Unavailable [phone] Basilio Hall MD Unavailable [phone] Ron Preciado MD Unavailable [phone] Reason for Visit * Reason Comments Med Refill Encounter Details Date Type Department Care Team (Late st Contact Info) Description 01/06/2024 Refill [facility] CHC MED & PEDS [address] [place] [address] Sariah Vickers ANP 230 [place] [address] Cervicalgia Social History Tobacco Use Types Packs/Day [...] Description 11/05/2024 2:30 PM EDT Office Visit [address] [address] Hallie Tapia MD [address] [place] [address] 11/12/2024 9:30 AM EDT Clinical Support [address] [address] Azeb Hall RN [address] [place] [address] 01/11/2025 1:00 PM EST Office Visit [address] [address] Sariah Vickers, KAYLEE [address] [place] [address] 02/03/2025 11:00 AM EST Medication Management [address] [address] Yuri Pierre, PharmD [address] [place] [address] documented as of this encounter Goals Goal [...] documented as of this encounter Care Teams Mill Beam Fitter Relationship Specialty Start Date End Date Sariah Vickers ANP 230 [place] [address] PCP - General Family Medicine 09/23/19 Yuri Pierre, MikeD [address] [place] [address] Pharmacist Internal Medicine 05/05/24 Basilio Hall MD [address] [place] [address] Cardiology 05/17/24 Ron Preciado MD [address] [place] [address] Pulmonary Disease 05/17/24 documented as of this encounter
--- OUTSIDE RECORDS SUMMARY | 2024-10-22 11:29 | XMS_ITS | Encounter Summary ---
Author Organization [employer] Address 75 [facility] 7t [place] [address] Care Team Providers Care Digital Content Coordinator Name Role Phone Sariah Vickers Primary Care Provider [phone] Yuri Pierre PharmD Unavailable [phone] Basilio Hall MD Unavailable [phone] Ron Preciado MD Unavailable [phone] Encounter Details Date Type Department Care Team (Late st Contact Info) Description 10/20/2024 Results Follow-Up [facility] MEDICINE 230 [place] [address] Sariah Vickers ANP 230 [place] [address] Prothrombin Time-INR, C-reactive Protein, Amylase, Additional followed-up results: 7 Social History Tobacco Use Types Packs/Day Years [...] Result Encounter Note - KAYLEE Lopez - 10/20/2024 11:49 AM EDT Labs from GI. Has been referred to rheumatology. documented in this encounter Plan of Treatment Upcoming Encounters Date Type Department Care Team (Late st Contact Info) Description 11/05/2024 2:30 PM EDT Office Visit [facility] MEDICINE [address] [place] [address] Hallie Tapia MD [address] [place] [address] 11/12/2024 9:30 AM EDT Clinical Support [address] [address] Azeb Hall RN 505 [place] [address] 01/11/2025 1:00 PM EST Office Visit [address] [address] Sariah Vickers ANP 230 [place] [address] 02/03/2025 11:00 AM EST Medication Management [facility] MEDICINE 230 [place] [address] Yuri Pierre, PharmD 230 [place] [address] documented as of this encounter Goals Goal [...] documented as of this encounter Care Teams Digital Content Coordinator Relationship Specialty Start Date End Date Sariah Vickers ANP [address] [place] [address] PCP - General Family Medicine 09/23/19 Yuri Pierre, PharmD [address] [place] [address] Pharmacist Internal Medicine 05/05/24 Basilio Hall MD 596 [place] [address] Cardiology 05/17/24 Ron Preciado MD [address] [place] [address] Pulmonary Disease 05/17/24 documented as of this encounter
--- OUTSIDE RECORDS SUMMARY | 2024-10-22 11:29 | XMS_ITS | Encounter Summary ---
Author Organization [employer] Address 75 [facility] 7t [place] [address] Care Team Providers Care Manager Behavior Name Role Phone Sariah Vickers Primary Care Provider [phone] Yuri Pierre PharmD Unavailable [phone] Basilio Hall MD Unavailable [phone] Ron Preciado MD Unavailable [phone] Reason for Visit * Reason Comments Med Refill Pt wants to know if she can keep taking prednis Encounter Details Date Type Department Care Team (Late st Contact Info) Description 06/26/2024 Refill [facility] CHC MED & PEDS [address] [place] [address] Sariah Vickers ANP 230 [place] [address] Cervicalgia Social History Tobacco Use Types Packs/Day [...] 11/05/2024 2:30 PM EDT Office Visit [address] [address] Hallie Tapia MD [address] [place] [address] 11/12/2024 9:30 AM EDT Clinical Support [address] [address] Azeb Hall RN 505 [place] [address] 01/11/2025 1:00 PM EST Office Visit [address] [address] Sariah Vickers, KAYLEE [address] [place] [address] 02/03/2025 11:00 AM EST Medication Management [address] [address] Yuri Pierre, PharmD [address] [place] [address] documented as of this encounter Goals Goal [...] as of this encounter Care Teams Manager Behavior Relationship Specialty Start Date End Date Sariah Vickers ANP 230 [place] [address] PCP - General Family Medicine 09/23/19 Yuri Pierre, MikeD 230 [place] [address] Pharmacist Internal Medicine 05/05/24 Basilio Hall MD 596 [place] [address] Cardiology 05/17/24 Ron Preciado MD [address] [place] [address] Pulmonary Disease 05/17/24 documented as of this encounter
--- OUTSIDE RECORDS SUMMARY | 2024-10-22 11:29 | XMS_ITS | Encounter Summary ---
Author Organization [employer] Address 75 [facility] 7t [place] [address] Care Team Providers Care Child Neurologist Name Role Phone Sariah Vickers Primary Care Provider [phone] Yuri Pierre PharmD Unavailable [phone] Basilio Hall MD Unavailable [phone] Ron Preciado MD Unavailable [phone] Reason for Visit * Reason Onset Date Comments Referral 08/02/2024 Encounter Details Date Type Department Care Team (Late st Contact Info) Description 08/02/2024 Telephone [facility] MED[facility]INE 230 [place], [place] [phone] Sariah Vickers ANP 230 [place], [place] [phone] Referral Social History Tobacco Use Types Packs/Day [...] for vertigo therapy. Please contact pt at [phone]. (Sudanese Speaker) documented in this encounter Plan of Treatment Upcoming Encounters Date Type Department Care Team (Late st Contact Info) Description 11/05/2024 2:30 PM EDT Office Visit [facility] MED[facility]INE [address] [place] [address] Hallie Tapia MD 230 [place] [address] 11/12/2024 9:30 AM EDT Clinical Support [facility] MED[facility]INE [address] [place] [address] Azeb Hall, MARTIN 505 [place] [address] 01/11/2025 1:00 PM EST Office Visit [address] [phone] Sariah Vickers ANP [address] [place] [address] 02/03/2025 11:00 AM EST Medication Management [address] [phone] Yuri Pierre, Dileep 230 [place], [place] documented as of this encounter Goals [...] documented as of this encounter Care Teams Child Neurologist Relationship Specialty Start Date End Date Sariah Vickers ANP [address] [place] [address] PCP - General Family Medicine 09/23/19 Yuri Pierre, PharmD [address] [place] [address] Pharmacist Internal Medicine 05/05/24 Basilio Hall MD 596 [place], [place] Cardiology 05/17/24 Ron Preciado MD [address] [place] [address] Pulmonary Disease 05/17/24 documented as of this encounter
--- OUTSIDE RECORDS SUMMARY | 2024-10-22 11:29 | XMS_ITS | Encounter Summary ---
Author Organization [employer] Address 75 [facility] 7t [place] [address] Care Team Providers Care Oyster Buyer Name Role Phone Sariah Vickers Primary Care Provider Yuri Pierre PharmD Unavailable [phone] Basilio Hall MD Unavailable [phone] Ron Preciado MD Unavailable [phone] Reason for Visit * Reason Comments Med Refill Encounter Details Date Type Department Care Team (Late st Contact Info) Description 01/06/2024 Refill [facility] CHC MED & PEDS [address] [place] [address] Sariah Vickers ANP 230 [place] [address] Cervicalgia Social History Tobacco Use Types Packs/Day [...] Description 11/05/2024 2:30 PM EDT Office Visit [address] [address] Hallie Tapia MD [address] [place] [address] 11/12/2024 9:30 AM EDT Clinical Support [address] [address] Azeb Hall RN [address] [place] [address] 01/11/2025 1:00 PM EST Office Visit [address] [address] Sariah Vickers, KAYLEE [address] [place] [address] 02/03/2025 11:00 AM EST Medication Management [address] [address] Yuri Pierre, PharmD [address] [place] [address] documented as of this encounter Goals Goal [...] as of this encounter Care Teams Oyster Buyer Relationship Specialty Start Date End Date Sariah Vickers ANP 230 [place] [address] PCP - General Family Medicine 09/23/19 Yuri Pierre, MikeD [address] [place] [address] Pharmacist Internal Medicine 05/05/24 Basilio Hall MD [address] [place] [address] Cardiology 05/17/24 Ron Preciado MD [address] [place] [address] Pulmonary Disease 05/17/24 documented as of this encounter
--- OUTSIDE RECORDS SUMMARY | 2024-10-22 11:29 | XMS_ITS | Encounter Summary ---
Author Organization [employer] Address 75 [facility] 7t [place] [address] Care Team Providers Care Pneumatic Jack Operator Name Role Phone Sariah Vickers Primary Care Provider [phone] Yuri Pierre PharmD Unavailable [phone] Basilio Hall MD Unavailable [phone] Ron Preciado MD Unavailable [phone] Reason for Visit * Reason Comments Med Refill Encounter Details Date Type Department Care Team (Late st Contact Info) Description 10/17/2023 Refill [facility] MEDICINE 230 [place] [address] Sariah Vickers ANP 230 [place] [address] Neck pain Social History Tobacco Use Types [...] Description 11/05/2024 2:30 PM EDT Office Visit [address] [address] Hallie Tapia MD [address] [place] [address] 11/12/2024 9:30 AM EDT Clinical Support [address] [address] Azeb Hall RN 505 [place] [address] 01/11/2025 1:00 PM EST Office Visit [address] [address] Sariah Vickers, ANP [address] [place] [address] 02/03/2025 11:00 AM EST Medication Management [address] [address] Yuri Pierre, PharmD [address] [place] [address] documented as of this encounter Goals Goal [...] documented as of this encounter Care Teams Pneumatic Jack Operator Relationship Specialty Start Date End Date Sariah Vickers ANP [address] [place] [address] PCP - General Family Medicine 09/23/19 Yuri Pierre PharmD [address] [place] [address] Pharmacist Internal Medicine 05/05/24 Basilio Hall MD [address] [place] [address] Cardiology 05/17/24 Ron Preciado MD [address] [place] [address] Pulmonary Disease 05/17/24 documented as of this encounter
--- OUTSIDE RECORDS SUMMARY | 2024-10-22 11:29 | XMS_ITS | Encounter Summary ---
Author Organization [employer] Address 75 [facility] 7t [place] [address] Care Team Providers Care Clearing Tub Worker Name Role Phone Sariah Vickers KAYLEE Primary Care Provider [phone] Yuri Pierre PharmD Unavailable [phone] Basilio Hall MD Unavailable [phone] Ron Preciado MD Unavailable [phone] Reason for Visit * Reason Comments Med Refill Encounter Details Date Type Department Care Team (Late st Contact Info) Description 10/04/2024 Refill [facility] CHC MED & PEDS [address] [place] [address] Zakia Uriostegui, MOTOR AND GENERATOR ASSEMBLER 230 [place] [address] Type 2 diabetes mellitus with hyperglycemia (CMS/HCC) [...] PM EDT Office Visit [address] [address] Hallie Tapia MD [address] [place] [address] 11/12/2024 9:30 AM EDT Clinical Support [address] [address] Azeb Hall, MARTIN 505 [place] [address] 01/11/2025 1:00 PM EST Office Visit [address] [address] Sariah Vickers ANP [address] [place] [address] 02/03/2025 11:00 AM EST Medication Management [address] [address] Yuri Pierre, PharmD 230 [place] [address] documented as of this encounter Goals Goal [...] documented as of this encounter Care Teams Clearing Tub Worker Relationship Specialty Start Date End Date Sariah Vickers ANP 230 [place] [address] PCP - General Family Medicine 09/23/19 Yuri Pierre, PharmD [address] [place] [address] Pharmacist Internal Medicine 05/05/24 Basilio Hall MD 596 [place] [address] Cardiology 05/17/24 Ron Perciado MD [address] [place] [address] Pulmonary Disease 05/17/24 documented as of this encounter
--- OUTSIDE RECORDS SUMMARY | 2024-10-22 11:30 | XMS_ITS | Encounter Summary ---
Author Organization [employer] Address 75 [facility] 7t [place] [address] Care Team Providers Care Field Account Director Name Role Phone Sariah Vickers Primary Care Provider Yuri Pierre PharmD Unavailable [phone] Basilio Hall MD Unavailable [phone] Ron Preciado MD Unavailable [phone] Reason for Visit * Reason Comments Med Refill Encounter Details Date Type Department Care Team (Late st Contact Info) Description 05/09/2023 Refill [facility] MEDICINE 230 [place] [address] Sariah Vickers ANP 230 [place] [address] High cholesterol Social History Tobacco Use Types [...] 11/05/2024 2:30 PM EDT Office Visit [address] [address] Hallie Tapia MD [address] [place] [address] 11/12/2024 9:30 AM EDT Clinical Support [address] [address] Azeb Hall, RN 505 [place] [address] 01/11/2025 1:00 PM EST Office Visit [address] [address] Sariah Vickers ANP [address] [place] [address] 02/03/2025 11:00 AM EST Medication Management [address] [address] Yuri Pierre, PharmD [address] [place] [address] documented as of this encounter Goals Goal [...] hypercholesterolemia documented in this encounter Care Teams Field Account Director Relationship Specialty Start Date End Date Sariah Vickers ANP 230 [place] [address] PCP - General Family Medicine 09/23/19 Yuri Pierre, MikeD 230 [place] [address] Pharmacist Internal Medicine 05/05/24 Basilio Hall MD 596 [place] [address] Cardiology 05/17/24 Ron Preciado MD [address] [place] [address] Pulmonary Disease 05/17/24 documented as of this encounter
--- OUTSIDE RECORDS SUMMARY | 2024-10-22 11:30 | XMS_ITS | Encounter Summary ---
Author Organization [employer] Address 75 [facility] 7t [place] [address] Care Team Providers Care Shipping Clerk Packing Name Role Phone Sariah Vickers Primary Care Provider [phone] Yuri Pierre PharmD Unavailable [phone] Basilio Hall MD Unavailable [phone] Ron Preciado MD Unavailable [phone] Reason for Visit * Reason Onset Date Comments Med Refill 03/04/2023 Encounter Details Date Type Department Care Team (Late st Contact Info) Description 03/04/2023 Telephone [facility] MEDICINE 230 [place], [place] [phone] Sariah Vickers ANP 230 [place], [place] [phone] Med Refill Social History Tobacco Use Types [...] 50 MG tablet To be sent to: [facility] - [place], [place] - [address] [place] [address] documented in this encounter Plan of Treatment Upcoming Encounters Date Type Department Care Team ([facility] st Contact Info) Description 11/05/2024 2:30 PM EDT Office Visit [address] [address] Hallie Tapia MD [address] [place] [address] 11/12/2024 9:30 AM EDT Clinical Support [address] [address] Azeb Hall RN 505 [place] [address] 01/11/2025 1:00 PM EST Office Visit [address] [address] Sariah Vickers, ANP [address] [place] [address] 02/03/2025 11:00 AM EST Medication Management [facility] MEDICINE 230 [place] [address] Yuri Pierre, PharmD 230 [place] [address] documented as of this encounter Goals Goal [...] on filedocumented in this encounter Care Teams Shipping Clerk Packing Relationship Specialty Start Date End Date Sariah Vickers ANP 230 [place] [address] PCP - General Family Medicine 09/23/19 Yuri Pierre, PharmD 230 [place] [address] Pharmacist Internal Medicine 05/05/24 Basilio Hall MD [address] [place] [address] Cardiology 05/17/24 Ron Preciado MD [address] [place] [address] Pulmonary Disease 05/17/24 documented as of this encounter
--- OUTSIDE RECORDS SUMMARY | 2024-10-22 11:30 | XMS_ITS | Encounter Summary ---
Author Organization [employer] Address 75 [facility] 7t [place] [address] Care Team Providers Care Bottle Assembler Name Role Phone Sariah Vickers Primary Care Provider [phone] Yuri Pierre PharmD Unavailable [phone] Basilio Hall MD Unavailable [phone] Ron Preciado MD Unavailable [phone] Reason for Visit * Reason Onset Date Comments Appointment Request 09/03/2024 Encounter Details Date Type Department Care Team (Late st Contact Info) Description 09/03/[address] [facility] MEDICINE 230 [place] [address] Sariah Vickers ANP 230 [place], [place] [phone] Appointment Request Social History Tobacco Use Types [...] when making the apt. Contact pt at [phone] documented in this encounter Plan of Treatment Upcoming Encounters Date Type Department Care Team ([facility] st Contact Info) Description 11/05/2024 2:30 PM EDT Office Visit [facility] MEDICINE [address] [place] [address] Hallie Tapia MD [address] [place] [address] 11/12/2024 9:30 AM EDT Clinical Support [facility] [address] [place] [address] Azeb Hall RN 505 [place] [address] 01/11/2025 1:00 PM EST Office Visit [address] [address] Sariah Vickers ANP [address] [place] [address] 02/03/2025 11:00 AM EST Medication Management [address] [address] Yuri Pierre, PharmBear [address] [place] [address] documented as of this encounter Goals Goal [...] documented as of this encounter Care Teams Bottle Assembler Relationship Specialty Start Date End Date Sariah Vickers ANP [address] [place] [address] PCP - General Family Medicine 09/23/19 Yuri Pierre, PharmD [address] [place] [address] Pharmacist Internal Medicine 05/05/24 Basilio Hall MD [address] [place] [address] Cardiology 05/17/24 Ron Preciado MD [address] [place] [address] Pulmonary Disease 05/17/24 documented as of this encounter
--- OUTSIDE RECORDS SUMMARY | 2024-10-22 11:30 | XMS_ITS | Encounter Summary ---
Author Organization [employer] Address 75 [facility] 7t [place] [address] Care Team Providers Care Baking Factory Worker Name Role Phone Sariah Vickers Primary Care Provider [phone] Yuri Pierre PharmD Unavailable [phone] Basilio Hall MD Unavailable [phone] Ron Preciado MD Unavailable [phone] Reason for Visit * Reason Comments Med Refill Encounter Details Date Type Department Care Team (Late st Contact Info) Description 08/14/2022 Refill [facility]EDS [address] [place] [address] Sariah Vickers ANP 230 [place] [address] Severe persistent asthma without complication Social History [...] 11/05/2024 2:30 PM EDT Office Visit [address] [address] Hallie Tapia MD [address] [place] [address] 11/12/2024 9:30 AM EDT Clinical Support [address] [address] Azeb Hall RN 505 [place] [address] 01/11/2025 1:00 PM EST Office Visit [address] [address] Sariah Vickers ANP [address] [place] [address] 02/03/2025 11:00 AM EST Medication Management [address] [address] Yuri Pierre, Dileep [address] [place] [address] documented as of this encounter Visit Diagnoses Diagnosis Severe persistent asthma without complication documented in this encounter Care Teams Baking Factory Worker Relationship Specialty Start Date End Date Sariah Vickers ANP [address] [place] [address] PCP - General Family Medicine 09/23/19 Yuri Pierre, PharmD [address] [place] [address] Pharmacist Internal Medicine 05/05/24 Basilio Hall MD 596 [place] [address] Cardiology 05/17/24 Ron Preciado MD [address] [place] [address] Pulmonary Disease 05/17/24 documented as of this encounter
--- OUTSIDE RECORDS SUMMARY | 2024-10-22 11:30 | XMS_ITS | Encounter Summary ---
Author Organization [employer] Address 75 [facility] 7t [place] [address] Care Team Providers Care Scourer Name Role Phone Sariah Vickers Primary Care Provider [phone] Yuri Pierre PharmD Unavailable [phone] Basilio Hall MD Unavailable [phone] Ron Preciado MD Unavailable [phone] Reason for Visit * Reason Comments Med Refill Encounter Details Date Type Department Care Team (Late st Contact Info) Description 06/30/2023 Refill [facility] MEDICINE 230 [place] [address] Sariah Vickers ANP 230 [place] [address] Neck pain Social History Tobacco Use Types [...] 11/05/2024 2:30 PM EDT Office Visit [address] [address] Hallie Tapia MD [address] [place] [address] 11/12/2024 9:30 AM EDT Clinical Support [address] [address] Azeb Hall RN 505 [place] [address] 01/11/2025 1:00 PM EST Office Visit [address] [address] Sariah Vickers, ANP [address] [place] [address] 02/03/2025 11:00 AM EST Medication Management [address] [address] Yuri Pierre, PharmD [address] [place] [address] documented as of this encounter Goals Goal [...] documented as of this encounter Care Teams Scourer Relationship Specialty Start Date End Date Sariah Vickers ANP 230 [place] [address] PCP - General Family Medicine 09/23/19 Yuri Pierre PharmD [address] [place] [address] Pharmacist Internal Medicine 05/05/24 Basilio Hall MD [address] [place] [address] Cardiology 05/17/24 Ron Preciado MD [address] [place] [address] Pulmonary Disease 05/17/24 documented as of this encounter
--- OUTSIDE RECORDS SUMMARY | 2024-10-22 11:30 | XMS_ITS | Encounter Summary ---
Author Organization [employer] Address 75 [facility] 7t [place] [address] Care Team Providers Care Photographic Hand Developer Name Role Phone Sariah Vickers Primary Care Provider [phone] Yuri Pierre PharmD Unavailable [phone] Basilio Hall MD Unavailable [phone] Ron Preciado MD Unavailable [phone] Reason for Visit * Reason Comments Med Refill Encounter Details Date Type Department Care Team (Late st Contact Info) Description 05/21/2023 Refill [facility] MEDICINE 230 [place] [address] Sariah Vickers ANP 230 [place] [address] Neck pain Social History Tobacco Use Types [...] Description 11/05/2024 2:30 PM EDT Office Visit [address] [address] Hallie Tapia MD [address] [place] [address] 11/12/2024 9:30 AM EDT Clinical Support [address] [address] Azeb Hall RN [address] [place] [address] 01/11/2025 1:00 PM EST Office Visit [address] [address] Sariah Vickers ANP [address] [place] [address] 02/03/2025 11:00 AM EST Medication Management [place] [address] [place] [address] Yuri Pierre, PharmD 230 [place] [address] documented as of this encounter Goals Goal [...] Cervicalgia documented in this encounter Care Teams Photographic Hand Developer Relationship Specialty Start Date End Date Sariah Vickers ANP 230 [place] [address] PCP - General Family Medicine 09/23/19 Yuri Pierre, PharmD 230 [place] [address] Pharmacist Internal Medicine 05/05/24 Basilio Hall MD 596 [place] [address] Cardiology 05/17/24 Ron Preciado MD [address] [place] [address] Pulmonary Disease 05/17/24 documented as of this encounter
--- OUTSIDE RECORDS SUMMARY | 2024-10-22 11:30 | XMS_ITS | Encounter Summary ---
Author Organization [employer] Address 75 [facility] 7t [place] [address] Care Team Providers Care Infrastructure Director Name Role Phone Sariah Vickers Primary Care Provider [phone] Yuri Pierre PharmD Unavailable [phone] Basilio Hall MD Unavailable [phone] Ron Preciado MD Unavailable [phone] Reason for Visit * Reason Comments Med Refill Encounter Details Date Type Department Care Team (Late st Contact Info) Description 07/10/2023 Refill [facility] 230 [place] [address] Sariah Vickers ANP 230 [place], [place] [phone] Chronic SI joint pain Social History Tobacco [...] 11/05/2024 2:30 PM EDT Office Visit [address] [address] Hallie Tapia MD [address] [place] [address] 11/12/2024 9:30 AM EDT Clinical Support [address] [address] Azeb Hall RN 505 [place] [address] 01/11/2025 1:00 PM EST Office Visit [address] [address] Sariah Vickers, KAYLEE [address] [place] [address] 02/03/2025 11:00 AM EST Medication Management [address] [address] Yuri Pierre, PharmD [address] [place] [address] documented as of this encounter Goals Goal [...] documented as of this encounter Care Teams Infrastructure Director Relationship Specialty Start Date End Date Sariah Vickers ANP 230 [place] [address] PCP - General Family Medicine 09/23/19 Yuri Pierre, MikeD 230 [place] [address] Pharmacist Internal Medicine 05/05/24 Basilio Hall MD 596 [place] [address] Cardiology 05/17/24 Ron Preciado MD [address] [place] [address] Pulmonary Disease 05/17/24 documented as of this encounter
--- OUTSIDE RECORDS SUMMARY | 2024-10-22 11:30 | XMS_ITS | Encounter Summary ---
Author Organization [employer] Address 75 [facility] 7t [place] [address] Care Team Providers Care Injector Assembler Name Role Phone Sariah Vickers KAYLEE Primary Care Provider [phone] Yuri Pierre PharmD Unavailable [phone] Basilio Hall MD Unavailable [phone] Ron Preciado MD Unavailable [phone] Reason for Visit * Reason Comments Med Refill Encounter Details Date Type Department Care Team (Late st Contact Info) Description 03/04/2023 Refill [facility] 230 [place] [address] Brittney Nava MD 230 [place] [address] Social History Tobacco Use Types Packs/Day Years [...] 11/05/2024 2:30 PM EDT Office Visit [address] [address] Hallie Tapia MD [address] [place] [address] 11/12/2024 9:30 AM EDT Clinical Support [address] [address] Azeb Hall, RN 505 [place] [address] 01/11/2025 1:00 PM EST Office Visit [address] [address] Sariah Vickers, KAYLEE [address] [place] [address] 02/03/2025 11:00 AM EST Medication Management [address] [address] Yuri Pierre, PharmD [address] [place] [address] documented as of this encounter Goals Goal [...] on filedocumented in this encounter Care Teams Injector Assembler Relationship Specialty Start Date End Date Sariah Vickers ANP 230 [place] [address] PCP - General Family Medicine 09/23/19 Yuri Pierre, PharmD [address] [place] [address] Pharmacist Internal Medicine 05/05/24 Basilio Hall MD 596 [place] [address] Cardiology 05/17/24 Ron Preciado MD [address] [place] [address] Pulmonary Disease 05/17/24 documented as of this encounter
--- OUTSIDE RECORDS SUMMARY | 2024-10-22 11:30 | XMS_ITS | Encounter Summary ---
Author Organization [employer] Address 75 [facility] 7t [place] [address] Care Team Providers Care Weight Recorder Name Role Phone Sariah Vickers Primary Care Provider [phone] Yuri Pierre PharmD Unavailable [phone] Basilio Hall MD Unavailable [phone] Ron Preciado MD Unavailable [phone] Reason for Visit * Reason Comments Med Refill Encounter Details Date Type Department Care Team (Late st Contact Info) Description 07/17/2022 Refill [facility] MEDICINE 230 [place] [address] Sariah Vickers ANP 230 [place] [address] Neck pain Social History Tobacco Use Types [...] 11/05/2024 2:30 PM EDT Office Visit [address] [address] Hallie Tapia MD [address] [place] [address] 11/12/2024 9:30 AM EDT Clinical Support [address] [address] Azeb Hall RN 505 [place] [address] 01/11/2025 1:00 PM EST Office Visit [address] [address] Sariah Vickers ANP [address] [place] [address] 02/03/2025 11:00 AM EST Medication Management [address] [address] Yuri Pierre, Dileep [address] [place] [address] documented as of this encounter Visit Diagnoses Diagnosis Neck pain Cervicalgia documented in this encounter Care Teams Weight Recorder Relationship Specialty Start Date End Date Sariah Vickers ANP [address] [place] [address] PCP - General Family Medicine 09/23/19 Yuri Pierre, PharmD [address] [place] [address] Pharmacist Internal Medicine 05/05/24 Basilio Hall MD 596 [place] [address] Cardiology 05/17/24 Ron Preciado MD [address] [place], [place] [address] Pulmonary Disease 05/17/24 documented as of this encounter
--- OUTSIDE RECORDS SUMMARY | 2024-10-22 11:30 | XMS_ITS | Encounter Summary ---
Author Organization [employer] Address 75 [facility] 7t [place] [address] Care Team Providers Care Powerhouse Mechanic Helper Name Role Phone Sariah Vickers Primary Care Provider [phone] Yuri Pierre PharmD Unavailable [phone] Basilio Hall MD Unavailable [phone] Ron Preciado MD Unavailable [phone] Reason for Visit * Reason Comments Med Refill Encounter Details Date Type Department Care Team (Late st Contact Info) Description 05/23/2024 Refill [facility] MED & PEDS [address] [place] [address] Sariah Vickers ANP 230 [place] [address] Cervicalgia Social History Tobacco Use Types Packs/Day [...] 11/05/2024 2:30 PM EDT Office Visit [address] [address] Hallie Tapia MD [address] [place] [address] 11/12/2024 9:30 AM EDT Clinical Support [address] [address] Azeb Hall RN [address] [place] [address] 01/11/2025 1:00 PM EST Office Visit [address] [address] Sariah Vickers, KAYLEE [address] [place] [address] 02/03/2025 11:00 AM EST Medication Management [address] [address] Yuri Pierre, PharmD [address] [place] [address] documented as of this encounter Goals Goal [...] documented as of this encounter Care Teams Powerhouse Mechanic Helper Relationship Specialty Start Date End Date Sariah Vickers ANP 230 [place] [address] PCP - General Family Medicine 09/23/19 Yuri Pierre, MikeD [address] [place] [address] Pharmacist Internal Medicine 05/05/24 Basilio Hall MD [address] [place] [address] Cardiology 05/17/24 Ron Preciado MD [address] [place] [address] Pulmonary Disease 05/17/24 documented as of this encounter
--- OUTSIDE RECORDS SUMMARY | 2024-10-22 11:30 | XMS_ITS | Clinical Summary ---
Author Organization [address] [facility] Address 175 [place] [address] Phone Care Team Providers Care Software Developer Intern Name Role Phone Sariah Vickers NP Primary Care Provider [phone] Social History Tobacco Use Types Packs/Day Years [...] age to complete this topic Care Teams Software Developer Intern Relationship Specialty Start Date End Date Sariah Vickers NP [address] [place] [place] [phone] PCP - General 12/03/23
--- OUTSIDE RECORDS SUMMARY | 2024-10-22 11:30 | XMS_ITS | Encounter Summary ---
Author Organization [employer] Address 75 [facility] 7t [place] [address] Care Team Providers Care Virtualization Engineer Name Role Phone Sariah Vickers Primary Care Provider [phone] Yuri Pierre PharmD Unavailable [phone] Basilio Hall MD Unavailable [phone] Ron Preciado MD Unavailable [phone] Reason for Visit * Reason Comments Med Refill Encounter Details Date Type Department Care Team (Late st Contact Info) Description 02/28/2023 Refill [facility] 230 [place] [address] Sariah Vickers ANP 230 [place] [address] Cervicalgia Social History Tobacco Use Types Packs/Day [...] 11/05/2024 2:30 PM EDT Office Visit [address] [address] Hallie Tapia MD [address] [place] [address] 11/12/2024 9:30 AM EDT Clinical Support [address] [address] Azeb Hall, RN 505 [place] [address] 01/11/2025 1:00 PM EST Office Visit [address] [address] Sariah Vickers ANP [address] [place] [address] 02/03/2025 11:00 AM EST Medication Management [address] [address] Yuri Pierre, PharmD [address] [place] [address] documented as of this encounter Goals Goal [...] Cervicalgia documented in this encounter Care Teams Virtualization Engineer Relationship Specialty Start Date End Date Sariah Vickers ANP 230 [place] [address] PCP - General Family Medicine 09/23/19 Yuri Pierre, MikeD [address] [place] [address] Pharmacist Internal Medicine 05/05/24 Basilio Hall MD 596 [place] [address] Cardiology 05/17/24 Ron Preciado MD [address] [place] [address] Pulmonary Disease 05/17/24 documented as of this encounter
--- OUTSIDE RECORDS SUMMARY | 2024-10-22 11:30 | XMS_ITS | Encounter Summary ---
Author Organization [employer] Address 75 [facility] 7t [place] [address] Care Team Providers Care Elderly Sitter Name Role Phone Sariah Vickers Primary Care Provider [phone] Yuri Pierre PharmD Unavailable [phone] Basilio Hall MD Unavailable [phone] Ron Preciado MD Unavailable [phone] Reason for Visit * Reason Comments Med Refill Encounter Details Date Type Department Care Team (Late st Contact Info) Description 07/10/2022 Refill [facility] MEDICINE 230 [place] [address] Sariah Vickers ANP 230 [place] [address] Vertigo Social History Tobacco Use Types Packs/Day [...] 11/05/2024 2:30 PM EDT Office Visit [address] [address] Hallie Tapia MD [address] [place] [address] 11/12/2024 9:30 AM EDT Clinical Support [address] [address] Azeb Hall RN 505 [place] [address] 01/11/2025 1:00 PM EST Office Visit [address] [address] Sariah Vickers ANP [address] [place] [address] 02/03/2025 11:00 AM EST Medication Management [address] [address] Yuri Pierre, Dileep [address] [place] [address] documented as of this encounter Visit Diagnoses Diagnosis Vertigo Dizziness and giddiness documented in this encounter Care Teams Elderly Sitter Relationship Specialty Start Date End Date Sariah Vickers ANP [address] [place] [address] PCP - General Family Medicine 09/23/19 Yuri Pierre, PharmD [address] [place] [address] Pharmacist Internal Medicine 05/05/24 Basilio Hall MD [address] [place] [address] Cardiology 05/17/24 Ron Preciado MD [address] [place], [place] [address] Pulmonary Disease 05/17/24 documented as of this encounter
--- OUTSIDE RECORDS SUMMARY | 2024-10-22 11:30 | XMS_ITS | Encounter Summary ---
Author Organization [employer] Address 75 [facility] 7t [place] [address] Care Team Providers Care Vice President For Instruction Name Role Phone Sariah Vickers Primary Care Provider [phone] Yuri Pierre PharmD Unavailable [phone] Basilio Hall MD Unavailable [phone] Ron Preciado MD Unavailable [phone] Reason for Visit * Reason Onset Date Comments Referral 05/17/2022 Encounter Details Date Type Department Care Team (Late st Contact Info) Description 05/17/2022 Telephone [facility] MEDICINE 230 [place] [address] Sariah Vickers ANP 230 [place], [place] [phone] Referral Social History Tobacco Use Types Packs/Day [...] guide to vertigo. Please contact pt at [phone] documented in this encounter Plan of Treatment Upcoming Encounters Date Type Department Care Team (Late st Contact Info) Description 11/05/2024 2:30 PM EDT Office Visit [address] [address] Hallie Tapia MD [address] [place] [address] 11/12/2024 9:30 AM EDT Clinical Support [address] [address] Azeb Hall RN 505 [place] [address] 01/11/2025 1:00 PM EST Office Visit [address] [address] Sariah Vickers ANP [address] [place] [address] 02/03/2025 11:00 AM EST Medication Management [address] [address] Yuri Pierre, Dileep [address] [place] [address] documented as of this encounter Visit Diagnoses Not on filedocumented in this encounter Care Teams Vice President For Instruction Relationship Specialty Start Date End Date Sariah Vickers ANP [address] [place] [address] PCP - General Family Medicine 09/23/19 Yuri Pierre, PharmD 230 [place] [address] Pharmacist Internal Medicine 05/05/24 Basilio Hall MD 596 [place] [address] Cardiology 05/17/24 Ron Preciado MD [address] [place] [address] Pulmonary Disease 05/17/24 documented as of this encounter
--- OUTSIDE RECORDS SUMMARY | 2024-10-22 11:30 | XMS_ITS | Encounter Summary ---
Author Organization [employer] Address 75 [facility] 7t [place] [address] Care Team Providers Care Kindergarten Paraprofessional Name Role Phone Sariah Vickers Primary Care Provider [phone] Yuri Pierre PharmD Unavailable [phone] Basilio Hlal MD Unavailable [phone] Ron Preciado MD Unavailable [phone] Reason for Visit * Reason Onset Date Comments Nurse Triage 01/14/2023 Encounter Details Date Type Department Care Team (Late st Contact Info) Description 01/14/2023 Telephone [facility] MEDICINE 230 [place] [address] Sariah Vickers ANP 230 [place] [address] Nurse Triage Social History Tobacco Use Types [...] 01/14/2023 9:26 AM EST Called pt. Via [employer] occ therapist [phone] Kelly. Pt. States that she has been having a fire feeling in her legs. Its like A burning that goes down her legs . Pt. Unsure if it because of her Diabetes. Pt. Went to [facility] ED for pain on her left side [...] at 10am. Will send note to clinical foster care worker to have note put in chart . [...] Severe pain now, pt was seen at [facility] on 01/13 for pain in leg. Pt is still symptomatic The caller accepted this outcome Please contact pt at [phone] (inner tube tuber machine operator needed) documented in this encounter Plan of Treatment Upcoming Encounters Date Type Department Care Team (Late st Contact Info) Description 11/05/2024 2:30 PM EDT Office Visit [address] [address] Hallie Tapia MD [address] [place] [address] 11/12/2024 9:30 AM EDT Clinical Support [address] [address] Azeb Hall RN 505 [place] [address] 01/11/2025 1:00 PM EST Office Visit [address] [address] Sariah Vickers ANP [address] [place] [address] 02/03/2025 11:00 AM EST Medication Management [address] [address] Yuri Pierre, MikeD [address] [place] [address] documented as of this encounter Goals Goal [...] on filedocumented in this encounter Care Teams Kindergarten Paraprofessional Relationship Specialty Start Date End Date Sariah Vickers ANP 230 [place] [address] PCP - General Family Medicine 09/23/19 Yuri Pierre, MikeD [address] [place] [address] Pharmacist Internal Medicine 05/05/24 Basilio Hall MD [address] [place] [address] Cardiology 05/17/24 Ron Preciado MD [address] [place] [address] Pulmonary Disease 05/17/24 documented as of this encounter
--- OUTSIDE RECORDS SUMMARY | 2024-10-22 11:30 | XMS_ITS | Encounter Summary ---
Author Organization [employer] Address 75 [facility] 7t [place] [address] Care Team Providers Care Risk Control Specialist Name Role Phone Sariah Vickers Primary Care Provider [phone] Yuri Pierre PharmD Unavailable [phone] Basilio Hall MD Unavailable [phone] Ron Preciado MD Unavailable [phone] Reason for Visit * Reason Comments Med Refill Encounter Details Date Type Department Care Team (Late st Contact Info) Description 07/12/2022 Refill [facility] MEDICINE 230 [place] [address] Sariha Vickers ANP 230 [place] [address] Social History Tobacco Use Types Packs/Day Years [...] 11/05/2024 2:30 PM EDT Office Visit [address] [address] Hallie Tapia MD [address] [place] [address] 11/12/2024 9:30 AM EDT Clinical Support [address] [address] Azeb Hall RN 505 [place] [address] 01/11/2025 1:00 PM EST Office Visit [address] [address] Sariah Vickers ANP [address] [place] [address] 02/03/2025 11:00 AM EST Medication Management [address] [address] Yuri Pierre, PharmBear [address] [place] [address] documented as of this encounter Visit Diagnoses Not on filedocumented in this encounter Care Teams Risk Control Specialist Relationship Specialty Start Date End Date Sariah Vickers ANP [address] [place] [address] PCP - General Family Medicine 09/23/19 Yuri Pierre, PharmD [address] [place] [address] Pharmacist Internal Medicine 05/05/24 Basilio Hall MD 596 [place] [address] Cardiology 05/17/24 Ron Preciado MD [address] [place], [place] [address] Pulmonary Disease 05/17/24 documented as of this encounter
--- OUTSIDE RECORDS SUMMARY | 2024-10-22 11:30 | XMS_ITS | Encounter Summary ---
Author Organization [employer] Address 75 [facility] 7t [place] [address] Care Team Providers Care Oil Well Directional Surveyor Name Role Phone Sariah Vickers Primary Care Provider [phone] Yuri Pierre PharmD Unavailable [phone] Basilio Hall MD Unavailable [phone] Ron Preciado MD Unavailable [phone] Reason for Visit * Reason Onset Date Comments Med Refill Durable Medical Equipment 07/15/2023 Foam M attress/Raised Toilet Seat Encounter Details Date Type Department Care Team (Late st Contact Info) Description 07/15/2023 Refill [facility] MEDICINE 230 [place], [place] [phone] Sariah Vickers ANP 230 [place] [address] Neck pain Social History Tobacco Use Types [...] Please see request sent via email by [facility] Catalyst Operator Arlin Baker. Please Advise. Good morning, [...] Description 11/05/2024 2:30 PM EDT Office Visit [facility] [address] [place] [address] Hallie Tapia MD [address] [place] [address] 11/12/2024 9:30 AM EDT Clinical Support [address] [phone] Azeb Hall, MARTIN [address] [place] [address] 01/11/2025 1:00 PM EST Office Visit [address] [phone] Sariah Vickers ANP [address] [place] [address] 02/03/2025 11:00 AM EST Medication Management [address] [phone] Yuri Pierre, Dileep [address] [place] [address] documented as of this encounter Goals Goal [...] as of this encounter Care Teams Oil Well Directional Surveyor Relationship Specialty Start Date End Date Sariah Vickers ANP [address] [place] [address] PCP - General Family Medicine 09/23/19 Yuri Pierre, MikeD [address] [place] [address] Pharmacist Internal Medicine 05/05/24 Basilio Hall MD [address] [place] [address] Cardiology 05/17/24 Ron Preciado MD [address] [place] [address] Pulmonary Disease 05/17/24 documented as of this encounter
--- OUTSIDE RECORDS SUMMARY | 2024-10-22 11:30 | XMS_ITS | Encounter Summary ---
Author Organization [employer] Address 75 [facility] 7t [place] [address] Care Team Providers Care Well Shooter Name Role Phone Sariah Vickers Primary Care Provider [phone] Yuri Pierre PharmD Unavailable [phone] Basilio Hall MD Unavailable [phone] Ron Preciado MD Unavailable [phone] Reason for Visit * Reason Comments Med Refill Encounter Details Date Type Department Care Team (Late st Contact Info) Description 03/07/2023 Refill [facility] MEDICINE 230 [place] [address] Sariah Vickers ANP 230 [place] [address] Vertigo Social History Tobacco Use Types Packs/Day [...] Description 11/05/2024 2:30 PM EDT Office Visit [address] [address] Hallie Tapia MD [address] [place] [address] 11/12/2024 9:30 AM EDT Clinical Support [address] [address] Azeb Hall, RN 505 [place] [address] 01/11/2025 1:00 PM EST Office Visit [address] [address] Sariah Vickers ANP [address] [place] [address] 02/03/2025 11:00 AM EST Medication Management [address] [address] Yuri Pierre, PharmD [address] [place] [address] documented as of this encounter Goals Goal [...] giddiness documented in this encounter Care Teams Well Shooter Relationship Specialty Start Date End Date Sariah Vickers ANP 230 [place] [address] PCP - General Family Medicine 09/23/19 Yuri Pierre, MikeD [address] [place] [address] Pharmacist Internal Medicine 05/05/24 Basilio Hall MD [address] [place] [address] Cardiology 05/17/24 Ron Preciado MD [address] [place] [address] Pulmonary Disease 05/17/24 documented as of this encounter
== END 2024-10-22 10:27 | disposition home or self-care (01) ==
LOC: HO.LAB 10:26
PROVIDERS: PCP Nurse Practitioner Primary Care; Visit Provider Nurse Practitioner
DX: D68.61 Antiphospholipid syndrome (principal); R76.8 Other specified abnormal immunological findings in serum; R79.89 Other specified abnormal findings of blood chemistry; Z01.84 Encounter for antibody response examination
CPT/HCPCS: 36415; 85597; 85598; 85613; 85730; 86015; 86146; 86147; 86376

== ENCOUNTER 2024-10-25 08:58 | Outpatient (AMB) | payer OTHER, SELFPAY ==
--- OUTSIDE RECORDS SUMMARY | 2024-10-25 10:09 | XMS_ITS | Encounter Summary ---
Author Organization [employer] Address 75 [facility] 7t [place] [address] Care Team Providers Care Professional Caster Name Role Phone Sariah Vickers Primary Care Provider [phone] Yuri Pierre PharmD Unavailable [phone] Basilio Hall MD Unavailable [phone] Ron Preciado MD Unavailable [phone] Reason for Visit * Reason Comments Med Refill Encounter Details Date Type Department Care Team (Late st Contact Info) Description 02/06/2022 Refill [facility] MEDICINE 230 [place] [address] Sariah Vickers ANP 230 [place] [address] Social History Tobacco Use Types Packs/Day Years [...] 11/05/2024 2:30 PM EDT Office Visit [address] [address] Hallie Tapia MD [address] [place] [address] 11/12/2024 9:30 AM EDT Clinical Support [address] [address] Azeb Hall RN 505 [place] [address] 01/11/2025 1:00 PM EST Office Visit [address] [address] Sariah Vickers ANP [address] [place] [address] 02/03/2025 11:00 AM EST Medication Management [address] [address] Yuri Pierre, Dileep [address] [place] [address] documented as of this encounter Visit Diagnoses Not on filedocumented in this encounter Care Teams Professional Caster Relationship Specialty Start Date End Date Sariah Vickers ANP [address] [place] [address] PCP - General Family Medicine 09/23/19 Yuri Pierre, PharmD [address] [place] [address] Pharmacist Internal Medicine 05/05/24 Basilio Hall MD 596 [place] [address] Cardiology 05/17/24 Ron Preciado MD [address] [place] [address] Pulmonary Disease 05/17/24 documented as of this encounter
--- OUTSIDE RECORDS SUMMARY | 2024-10-25 10:09 | XMS_ITS | Encounter Summary ---
Author Organization [employer] Address 75 [facility] 7t [place] [address] Care Team Providers Care Undercutter Operator Name Role Phone Sariah Vickers Primary Care Provider Yuri Pierre PharmD Unavailable [phone] Basilio Hall MD Unavailable [phone] Ron Preciado MD Unavailable [phone] Encounter Details Date Type Department Care Team (Latest Contact Info) Description 05/15/2018 Abstract [facility] CONVERSIONS Dental, [...] Description 11/05/2024 2:30 PM EDT Office Visit [facility] MEDICINE [address] [place] [address] Hallie Tapia MD [address] [place] [address] 11/12/2024 9:30 AM EDT Clinical Support [facility] MEDICINE [address] [place] [address] Azeb Hall RN 505 [place] [address] 01/11/2025 1:00 PM EST Office Visit [address] [address] Sariah Vickers ANP [address] [place] [address] 02/03/2025 11:00 AM EST Medication Management [address] [address] Yuri Pierre, Dileep [address] [place] [address] documented as of this encounter Visit Diagnoses Not on filedocumented in this encounter Care Teams Undercutter Operator Relationship Specialty Start Date End Date Sariah Vickers ANP [address] [place] [address] PCP - General Family Medicine 09/23/19 Yuri Pierre, PharmD [address] [place] [address] Pharmacist Internal Medicine 05/05/24 Basilio Hall MD 596 [place] [address] Cardiology 05/17/24 Ron Preciado MD [address] [place] [address] Pulmonary Disease 05/17/24 documented as of this encounter
--- OUTSIDE RECORDS SUMMARY | 2024-10-25 10:09 | XMS_ITS | Encounter Summary ---
Author Organization [employer] Address 75 [facility] 7t [place] [address] Care Team Providers Care Log Turner Name Role Phone Sariah Vickers Primary Care Provider [phone] Yuri Pierre PharmD Unavailable [phone] Basilio Hall MD Unavailable [phone] Ron Preciado MD Unavailable [phone] Reason for Visit * Reason Onset Date Comments Durable Medical Equipment 03/15/2022 Encounter Details Date Type Department Care Team (Late st Contact Info) Description 03/15/2022 Telephone [facility] MEDICINE 230 [place] [address] Sariah Vickers ANP 230 [place], [place] [phone] Durable Medical Equipment Social History Tobacco Use [...] Description 11/05/2024 2:30 PM EDT Office Visit [address] [address] Hallie Tapia MD [address] [place] [address] 11/12/2024 9:30 AM EDT Clinical Support [address] [address] Azeb Hall, MARTIN 505 [place] [address] 01/11/2025 1:00 PM EST Office Visit [address] [address] Sariah Vickers ANP [address] [place] [address] 02/03/2025 11:00 AM EST Medication Management [address] [address] Yuri Pierre, MikeD [address] [place] [address] documented as of this encounter Visit Diagnoses Not on filedocumented in this encounter Care Teams Log Turner Relationship Specialty Start Date End Date Sariah Vickers ANP [address] [place] [address] PCP - General Family Medicine 09/23/19 Yuri Pierre, MikeD 230 [place] [address] Pharmacist Internal Medicine 05/05/24 Basilio Hall MD 596 [place] [address] Cardiology 05/17/24 Ron Preciado MD [address] [place] [address] Pulmonary Disease 05/17/24 documented as of this encounter
--- OUTSIDE RECORDS SUMMARY | 2024-10-25 10:09 | XMS_ITS | Encounter Summary ---
Author Organization [employer] Address 75 [facility] 7t [place] [address] Care Team Providers Care Lead Burner Apprentice Name Role Phone Sariah Vickers Primary Care Provider Yuri Pierre PharmD Unavailable [phone] Basilio Hall MD Unavailable [phone] Ron Preciado MD Unavailable [phone] Encounter Details Date Type Department Care Team (Latest Contact Info) Description 06/20/2021 Abstract [facility] CONVERSIONS Dental, Provider, DDS Social History [...] 11/05/2024 2:30 PM EDT Office Visit [facility] MEDICINE [address] [place] [address] Hallie Tapia MD [address] [place] [address] 11/12/2024 9:30 AM EDT Clinical Support [facility] MEDICINE [address] [place] [address] Azeb Hall RN 505 [place] [address] 01/11/2025 1:00 PM EST Office Visit [address] [address] Sariah Vickers ANP [address] [place] [address] 02/03/2025 11:00 AM EST Medication Management [address] [address] Yuri Pierre, PharmBear [address] [place] [address] documented as of this encounter Visit Diagnoses Not on filedocumented in this encounter Care Teams Lead Burner Apprentice Relationship Specialty Start Date End Date Sariah Vickers ANP [address] [place] [address] PCP - General Family Medicine 09/23/19 Yuri Pierre, PharmD [address] [place] [address] Pharmacist Internal Medicine 05/05/24 Basilio Hall MD 6 [place] [address] Cardiology 05/17/24 Ron Preciado MD [address] [place] [address] Pulmonary Disease 05/17/24 documented as of this encounter
--- OUTSIDE RECORDS SUMMARY | 2024-10-25 10:09 | XMS_ITS | Encounter Summary ---
Author Organization [employer] Address 75 [facility] 7t [place] [address] Care Team Providers Care Computer Applications Developer Name Role Phone Sariah Vickers Primary Care Provider [phone] Yuri Pierre PharmD Unavailable [phone] Basilio Hall MD Unavailable [phone] Ron Preciado MD Unavailable [phone] Reason for Visit * Reason Comments Med Refill Encounter Details Date Type Department Care Team (Late st Contact Info) Description 06/17/2024 Refill [facility] WALK[facility]IN CENTER 230 [place] [address] Sariah Vickers ANP 230 [place], [place] [phone] Neck pain Social History Tobacco Use Types [...] Description 11/05/2024 2:30 PM EDT Office Visit [address] [address] Hallie Tapia MD [address] [place] [address] 11/12/2024 9:30 AM EDT Clinical Support [address] [address] Azeb Hall RN [address] [place] [address] 01/11/2025 1:00 PM EST Office Visit [address] [address] Sariah Vickers, KAYLEE [address] [place] [address] 02/03/2025 11:00 AM EST Medication Management [address] [address] Yuri Pierre, PharmD [address] [place] [address] documented as of this encounter Goals Goal [...] Date End Date Sariah Vickers ANP 230 [place] [address] PCP - General Family Medicine 09/23/19 Yuri Pierre, MikeD [address] [place] [address] Pharmacist Internal Medicine 05/05/24 Basilio Hall MD [address] [place] [address] Cardiology 05/17/24 Ron Preciado MD [address] [place] [address] Pulmonary Disease 05/17/24 documented as of this encounter
--- OUTSIDE RECORDS SUMMARY | 2024-10-25 10:09 | XMS_ITS | Encounter Summary ---
Author Organization [employer] Address 75 [facility] 7t [place] [address] Care Team Providers Care Insurance Account Executive Name Role Phone Sariah Vickers Primary Care Provider [phone] Yuri Pierre PharmD Unavailable [phone] Basilio Hall MD Unavailable [phone] Ron Preciado MD Unavailable [phone] Encounter Details Date Type Department Care Team (Late st Contact Info) Description 02/05/2022 Abstract [facility] MEDICINE 230 [place] [address] Sariah Vickers ANP 230 [place] [address] Social History Tobacco Use Types Packs/Day Years [...] Description 11/05/2024 2:30 PM EDT Office Visit [address] [address] Hallie Tapia MD [address] [place] [address] 11/12/2024 9:30 AM EDT Clinical Support [address] [address] Azeb Hall RN 505 [place] [address] 01/11/2025 1:00 PM EST Office Visit [address] [address] Sariah Vickers ANP [address] [place] [address] 02/03/2025 11:00 AM EST Medication Management [address] [address] Yuri Pierre, MikeD [address] [place] [address] documented as of this encounter Visit Diagnoses Not on filedocumented in this encounter Care Teams Insurance Account Executive Relationship Specialty Start Date End Date Sariah Vickers ANP [address] [place] [address] PCP - General Family Medicine 09/23/19 Yuri Pierre, PharmD 230 [place] [address] Pharmacist Internal Medicine 05/05/24 Basilio Hall MD 596 [place] [address] Cardiology 05/17/24 Ron Preciado MD [address] [place] [address] Pulmonary Disease 05/17/24 documented as of this encounter
--- OUTSIDE RECORDS SUMMARY | 2024-10-25 10:09 | XMS_ITS | Encounter Summary ---
Author Organization [employer] Address 75 [facility] 7t [place] [address] Care Team Providers Care Mandrel Maker Name Role Phone Sariah Vickers Primary Care Provider [phone] Yuri Pierre PharmD Unavailable [phone] Basilio Hall MD Unavailable [phone] Ron Preciado MD Unavailable [phone] Reason for Visit * Reason Comments Med Refill Encounter Details Date Type Department Care Team (Late st Contact Info) Description 10/03/2023 Refill [facility]ALK[facility]IN CENTER 230 [place] [address] Sariah Vickers ANP 230 [place], [place] [phone] Chronic SI joint pain Social History Tobacco [...] Description 11/05/2024 2:30 PM EDT Office Visit [address] [address] Hallie Tapia MD [address] [place] [address] 11/12/2024 9:30 AM EDT Clinical Support [address] [address] Azeb Hall RN 505 [place] [address] 01/11/2025 1:00 PM EST Office Visit [address] [address] Sariah Vickers, KAYLEE [address] [place] [address] 02/03/2025 11:00 AM EST Medication Management [address] [address] Yuri Pierre, PharmD [address] [place] [address] documented as of this encounter Goals Goal [...] documented as of this encounter Care Teams Mandrel Maker Relationship Specialty Start Date End Date Sariah Vickers ANP 230 [place] [address] PCP - General Family Medicine 09/23/19 Yuri Pierre, MikeD [address] [place] [address] Pharmacist Internal Medicine 05/05/24 Basilio Hall MD 596 [place] [address] Cardiology 05/17/24 Ron Preciado MD [address] [place] [address] Pulmonary Disease 05/17/24 documented as of this encounter
--- OUTSIDE RECORDS SUMMARY | 2024-10-25 10:09 | XMS_ITS | Encounter Summary ---
Author Organization [employer] Address 75 [facility] 7t [place] [address] Care Team Providers Care Manager Of Training And Development Name Role Phone Sariah Vickers Primary Care Provider [phone] Yuri Pierre PharmD Unavailable [phone] Basilio Hall MD Unavailable [phone] Ron Preciado MD Unavailable [phone] Reason for Visit * Reason Comments Med Refill Encounter Details Date Type Department Care Team (Late st Contact Info) Description 09/13/2022 Refill [facility]S [address] [place] [address] Sariah Vickers ANP 230 [place] [address] Severe persistent allergic asthma without complication Social [...] 11/05/2024 2:30 PM EDT Office Visit [address] [address] Hallie Tapia MD [address] [place] [address] 11/12/2024 9:30 AM EDT Clinical Support [address] [address] Azeb Hall RN 505 [place] [address] 01/11/2025 1:00 PM EST Office Visit [address] [address] Sariah Vickers ANP [address] [place] [address] 02/03/2025 11:00 AM EST Medication Management [address] [address] Yuri Pierre PharmD [address] [place] [address] documented as of this encounter Visit Diagnoses Diagnosis Severe persistent allergic asthma without complication documented in this encounter Care Teams Manager Of Training And Development Relationship Specialty Start Date End Date Sariah Vickers ANP [address] [place] [address] PCP - General Family Medicine 09/23/19 Yuri Pierre, PharmD [address] [place] [address] Pharmacist Internal Medicine 05/05/24 Basilio Hall MD 596 [place] [address] Cardiology 05/17/24 Ron Preciado MD [address] [place] [address] Pulmonary Disease 05/17/24 documented as of this encounter
--- OUTSIDE RECORDS SUMMARY | 2024-10-25 10:09 | XMS_ITS | Encounter Summary ---
Author Organization [employer] Address 75 [facility] 7t [place] [address] Care Team Providers Care Industrial Garage Servicer Name Role Phone Sariah Vickers Primary Care Provider [phone] Yuri Pierre PharmD Unavailable [phone] Basilio Hall MD Unavailable [phone] Ron Preciado MD Unavailable [phone] Reason for Visit * Reason Comments Med Refill Encounter Details Date Type Department Care Team (Late st Contact Info) Description 08/22/2023 Refill [facility] MEDICINE 230 [place] [address] Sariah Vickers ANP 230 [place] [address] Neck pain Social History Tobacco Use Types [...] 11/05/2024 2:30 PM EDT Office Visit [address] [address] Hallie Tapia MD [address] [place] [address] 11/12/2024 9:30 AM EDT Clinical Support [address] [address] Azeb Hall RN 505 [place] [address] 01/11/2025 1:00 PM EST Office Visit [address] [address] Sariah Vickers, ANP [address] [place] [address] 02/03/2025 11:00 AM EST Medication Management [address] [address] Yuri Pierre, PharmD [address] [place] [address] documented as of this encounter Goals Goal [...] as of this encounter Care Teams Industrial Garage Servicer Relationship Specialty Start Date End Date Sariah Vickers ANP 230 [place] [address] PCP - General Family Medicine 09/23/19 Yuri Pierre PharmD [address] [place] [address] Pharmacist Internal Medicine 05/05/24 Basilio Hall MD [address] [place] [address] Cardiology 05/17/24 Ron Preciado MD [address] [place] [address] Pulmonary Disease 05/17/24 documented as of this encounter
--- OUTSIDE RECORDS SUMMARY | 2024-10-25 10:09 | XMS_ITS | Encounter Summary ---
Author Organization [employer] Address 75 [facility] 7t [place] [address] Care Team Providers Care Company Truck Driver Name Role Phone Sariah Vickers Primary Care Provider [phone] Yuri Pierre PharmD Unavailable [phone] Basilio Hall MD Unavailable [phone] Ron Preciado MD Unavailable [phone] Reason for Visit * Reason Comments Med Refill Encounter Details Date Type Department Care Team (Late st Contact Info) Description 10/03/2023 Refill [facility] WALK[facility]IN C[facility] 230 [place] [address] Sariah Vickers ANP 230 [place], [place] [phone] Chronic SI joint pain Social History Tobacco [...] Description 11/05/2024 2:30 PM EDT Office Visit [address] [address] Hallie Tapia MD [address] [place] [address] 11/12/2024 9:30 AM EDT Clinical Support [address] [address] Azeb Hall RN 505 [place] [address] 01/11/2025 1:00 PM EST Office Visit [address] [address] Sariah Vickers, KAYLEE [address] [place] [address] 02/03/2025 11:00 AM EST Medication Management [address] [address] Yuri Pierre, PharmD [address] [place] [address] documented as of this encounter Goals Goal [...] documented as of this encounter Care Teams Company Truck Driver Relationship Specialty Start Date End Date Sariah Vickers ANP 230 [place] [address] PCP - General Family Medicine 09/23/19 Yuri Pierre, MikeD [address] [place] [address] Pharmacist Internal Medicine 05/05/24 Basilio Hall MD 596 [place] [address] Cardiology 05/17/24 Ron Preciado MD [address] [place] [address] Pulmonary Disease 05/17/24 documented as of this encounter
--- OUTSIDE RECORDS SUMMARY | 2024-10-25 10:09 | XMS_ITS | Encounter Summary ---
Author Organization [employer] Address 75 [facility] 7t [place] [address] Care Team Providers Care Credit Risk Review Officer Name Role Phone Sariah Vickers Primary Care Provider [phone] Yuri Pierre PharmD Unavailable [phone] Basilio Hall MD Unavailable [phone] Ron Preciado MD Unavailable [phone] Reason for Visit * Reason Comments Med Refill Encounter Details Date Type Department Care Team (Late st Contact Info) Description 03/09/2024 Refill [facility] [address] [place] [address] Sariah Vickers ANP [address] [place] [address] Neck pain Social History Tobacco Use Types [...] 11/05/2024 2:30 PM EDT Office Visit [address] [address] Hallie Tapia MD [address] [place] [address] 11/12/2024 9:30 AM EDT Clinical Support [address] [address] Azeb Hall RN [address] [place] [address] 01/11/2025 1:00 PM EST Office Visit [address] [address] Sariah Vickers, KAYLEE [address] [place] [address] 02/03/2025 11:00 AM EST Medication Management [address] [address] Yuri Pierre, PharmD [address] [place] [address] documented as of this encounter Goals Goal [...] as of this encounter Care Teams Credit Risk Review Officer Relationship Specialty Start Date End Date Sariah Vickers ANP [address] [place] [address] PCP - General Family Medicine 09/23/19 Yuri Pierre, MikeD [address] [place] [address] Pharmacist Internal Medicine 05/05/24 Basilio Hall MD [address] [place] [address] Cardiology 05/17/24 Ron Preciado MD [address] [place] [address] Pulmonary Disease 05/17/24 documented as of this encounter
--- OUTSIDE RECORDS SUMMARY | 2024-10-25 10:09 | XMS_ITS | Encounter Summary ---
Author Organization [employer] Address 75 [facility] 7t [place] [address] Care Team Providers Care Motorcycle Engine Assembler Name Role Phone Sariah Vickers Primary Care Provider [phone] Yuri Pierre PharmD Unavailable [phone] Basilio Hall MD Unavailable [phone] Ron Preciado MD Unavailable [phone] Reason for Visit * Reason Comments Med Refill Patient walked [facility] pharmacy hasn't finished her Medbox due to missing refill for medication Gabapetin . Encounter Details Date Type Department Care Team (Late st Contact Info) Description 10/03/[address] [facility] 230 [place], [place] [phone] Sariah Vickers ANP 230 [place], [place] [phone] Chronic SI joint pain Social History Tobacco [...] the past 12 months, has t he [employer] gas, oil or water company threatened to [...] 11/05/2024 2:30 PM EDT Office Visit [address] [address] Hallie Tapia MD [address] [place] [address] 11/12/2024 9:30 AM EDT Clinical Support [address] [address] Azeb Hall RN 505 [place] [address] 01/11/2025 1:00 PM EST Office Visit [address] [place] [address] Sariah Vickers ANP [address] [place] [address] 02/03/2025 11:00 AM EST Medication Management [facility] MEDICINE [address] [place] [address] Yuri Pierre PharmD [address] [place] [address] documented as of this encounter Goals Goal [...] documented as of this encounter Care Teams Motorcycle Engine Assembler Relationship Specialty Start Date End Date Sariah Vickers ANP [address] [place] [address] PCP - General Family Medicine 09/23/19 Yuri Pierre, PharmD [address] [place] [address] Pharmacist Internal Medicine 05/05/24 Basilio Hall MD [address] [place] [address] Cardiology 05/17/24 Ron Preciado MD [address] [place] [address] Pulmonary Disease 05/17/24 documented as of this encounter
--- OUTSIDE RECORDS SUMMARY | 2024-10-25 10:09 | XMS_ITS | Encounter Summary ---
Author Organization [employer] Address 75 [facility] 7t [place] [address] Care Team Providers Care Canal Driver Name Role Phone Sariah Vickers Primary Care Provider [phone] Yuri Pierre PharmD Unavailable [phone] Basilio Hall MD Unavailable [phone] Ron Preciado MD Unavailable [phone] Reason for Visit * Reason Onset Date Comments Med Refill 02/04/2024 Encounter Details Date Type Department Care Team (Late st Contact Info) Description 02/04/2024 Telephone [facility] 230 [place] [address] Sariah Vickers ANP 230 [place], [place] [phone] Med Refill Social History Tobacco Use Types [...] 50 MG tablet To be sent to: [facility] - [place], [place] - [address] [place] [address] documented in this encounter Plan of Treatment Upcoming Encounters Date Type Department Care Team ([facility] st Contact Info) Description 11/05/2024 2:30 PM EDT Office Visit [facility] [address] [place] [address] Hallie Tapia MD [address] [place] [address] 11/12/2024 9:30 AM EDT Clinical Support [address] [address] Azeb Hall RN 505 [place] [address] 01/11/2025 1:00 PM EST Office Visit [address] [address] Sariah Vickers ANP 230 [place] [address] 02/03/2025 11:00 AM EST Medication Management [facility] 230 [place] [address] Yuri Pierre, PharmD 230 [place] [address] documented as of this encounter Goals Goal [...] documented as of this encounter Care Teams Canal Driver Relationship Specialty Start Date End Date Sariah Vickers ANP [address] [place] [address] PCP - General Family Medicine 09/23/19 Yuri Pierre, PharmD 230 [place] [address] Pharmacist Internal Medicine 05/05/24 Basilio Hall MD 5[address] [place] [address] Cardiology 05/17/24 Ron Preciado MD [address] [place] [address] Pulmonary Disease 05/17/24 documented as of this encounter
--- OUTSIDE RECORDS SUMMARY | 2024-10-25 10:09 | XMS_ITS | Encounter Summary ---
Author Organization [employer] Address 75 [facility] 7t [place] [address] Care Team Providers Care Qa Internship Name Role Phone Sariah Vickers Primary Care Provider [phone] Yuri Pierre PharmD Unavailable [phone] Basilio aHll MD Unavailable [phone] Ron Preciado MD Unavailable [phone] Reason for Visit * Reason Comments Med Refill Encounter Details Date Type Department Care Team (Late st Contact Info) Description 10/23/2024 Refill [facility] 230 [place] [address] Sariah Vickers ANP 230 [place] [address] Social History Tobacco Use Types Packs/Day Years [...] Description 11/05/2024 2:30 PM EDT Office Visit [address] [address] Hallie Tapia MD [address] [place] [address] 11/12/2024 9:30 AM EDT Clinical Support [address] [address] Azeb Hall RN 505 [place] [address] 01/11/2025 1:00 PM EST Office Visit [address] [address] Sariah Vickers ANP [address] [place] [address] 02/03/2025 11:00 AM EST Medication Management [address] [address] Yuri Pierre, PharmD 230 [place] [address] documented as of this encounter Goals Goal Patient Goal Type Associated Problems Recent Progress Patient-Stated? Author Blood Pressure < 140/90 Blood Pressure 140/90(2024 1:50 PM EDT) No Katelin-Aida Medina, PharmD Record Your Blood Sugar As Directed General No Phanis-Gambl Veronica urbinasa, PharmD Hemoglobin A1c < 7 Result Component 6.6( 1:54 PM EDT) No Piers-Gambl eAida, PharmD documented as of this encounter Visit Diagnoses Not on filedocumented in this encounter Additional Health Concerns Assessment Noted Time PHQ-9 Depression Total Score: 11 025 5:30 PM EDT documented as of this encounter Care Teams Qa Internship Relationship Specialty Start Date End Date Sariah Vickers ANP 230 [place] [address] PCP - General Family Medicine 09/23/19 Yuri Pierre, MikeD 230 [place] [address] Pharmacist Internal Medicine 05/05/24 Basilio Hall MD 596 [place] [address] Cardiology 05/17/24 Ron Preciado MD [address] [place] [address] Pulmonary Disease 05/17/24 documented as of this encounter
--- OUTSIDE RECORDS SUMMARY | 2024-10-25 10:09 | XMS_ITS | Encounter Summary ---
Author Organization [employer] Address 75 [facility] 7t [place] [address] Care Team Providers Care Hog Cutter Name Role Phone Sariah Vickers Primary Care Provider Yuri Pierre PharmD Unavailable [phone] Basilio Hall MD Unavailable [phone] Ron Preciado MD Unavailable [phone] Encounter Details Date Type Department Care Team (Late Contact Info) Description 01/09/2022 Abstract [facility] AD[facility] D[facility]AL [address] [place] [address] Dental, Provider, DDS Social History Tobacco Use [...] Description 11/05/2024 2:30 PM EDT Office Visit [facility] MED[facility] [address] [place] [address] Hallie Tapia MD [address] [place] [address] 11/12/2024 9:30 AM EDT Clinical Support [facility] [address] [place] [address] Azeb Hall RN 505 [place] [address] 01/11/2025 1:00 PM EST Office Visit [facility] [address] [place] [address] Sariah Vickers ANP 230 [place] [address] 02/03/2025 11:00 AM EST Medication Management [facility] 230 [place] [address] Yuri Pierre, PharmD 230 [place], [place] [phone] documented as of this encounter Procedures Procedure [...] on filedocumented in this encounter Care Teams Hog Cutter Relationship Specialty Start Date End Date Sariah Vickers ANP 230 [place] [address] PCP - General Family Medicine 09/23/19 Yuri Pierre, MikeD 230 [place] [address] Pharmacist Internal Medicine 05/05/24 Basilio Hall MD 596 [place] [address] Cardiology 05/17/24 Ron Preciado MD [address] [place] [address] Pulmonary Disease 05/17/24 documented as of this encounter
--- OUTSIDE RECORDS SUMMARY | 2024-10-25 10:09 | XMS_ITS | Encounter Summary ---
Author Organization [employer] Address [address] [place] [address] 7t [place] [address] Care Team Providers Care Cardiovascular Operating Room Nurse Name Role Phone Sariah Vickers Primary Care Provider [phone] Yuri Pierre PharmD Unavailable [phone] Basilio Hall MD Unavailable [phone] Ron Preciado MD Unavailable [phone] Reason for Visit * Reason Onset Date Comments Nurse Triage 11/01/2022 Encounter Details Date Type Department Care Team (Late st Contact Info) Description 11/01/2022 Telephone [facility] 230 [place] [address] Sariah Vickers ANP 230 [place] [address] Nurse Triage Social History Tobacco Use Types [...] 11/01/2022 3:51 PM EDT Triage call with [place] [employer] [place] [id number] Pt reports blood sugars have been high [...] 2:30 PM EDT Office Visit [facility] [address] [place] [address] Hallie Tapia MD 230 [place] [address] 11/12/2024 9:30 AM EDT Clinical Support [facility] [address] [place] [address] Azeb Hall RN 505 [place] [address] 01/11/2025 1:00 PM EST Office Visit [address] [address] Sariah Vickers ANP [address] [place] [address] 02/03/2025 11:00 AM EST Medication Management [address] [address] Yuri Pierre PharmD [address] [place] [address] documented as of this encounter Goals Goal [...] on filedocumented in this encounter Care Teams Cardiovascular Operating Room Nurse Relationship Specialty Start Date End Date Sariah Vickres ANP [address] [place] [address] PCP - General Family Medicine 09/23/19 Yuri Pierre, PharmD [address] [place] [address] Pharmacist Internal Medicine 05/05/24 Basilio Hall MD [address] [place] [address] Cardiology 05/17/24 Ron Preciado MD [address] [place] [address] Pulmonary Disease 05/17/24 documented as of this encounter
--- OUTSIDE RECORDS SUMMARY | 2024-10-25 10:09 | XMS_ITS | Encounter Summary ---
Author Organization [employer] Address 75 [facility] 7t [place] [address] Care Team Providers Care Coding Manager Name Role Phone Sariah Vickers Primary Care Provider [phone] Yuri Pierre PharmD Unavailable [phone] Basilio Hall MD Unavailable [phone] Ron Preciado MD Unavailable [phone] Reason for Visit * Reason Comments Med Refill Pt wants to know if she can keep taking prednis Encounter Details Date Type Department Care Team (Late st Contact Info) Description 06/26/2024 Refill [facility] PEDS [address] [place] [address] Sariah Vickers ANP 230 [place] [address] Cervicalgia Social History Tobacco Use Types Packs/Day [...] 11/05/2024 2:30 PM EDT Office Visit [address] [address] Hallie Tapia MD [address] [place] [address] 11/12/2024 9:30 AM EDT Clinical Support [address] [address] Azeb Hall RN 505 [place] [address] 01/11/2025 1:00 PM EST Office Visit [address] [address] Sariah Vickers, KAYLEE [address] [place] [address] 02/03/2025 11:00 AM EST Medication Management [address] [address] Yuri Pierre, PharmD [address] [place] [address] documented as of this encounter Goals Goal [...] documented as of this encounter Care Teams Coding Manager Relationship Specialty Start Date End Date Sariah Vickers ANP 230 [place] [address] PCP - General Family Medicine 09/23/19 Yuri Pierre, MikeD 230 [place] [address] Pharmacist Internal Medicine 05/05/24 Basilio Hall MD 5[address] [place] [address] Cardiology 05/17/24 Ron Preciado MD [address] [place] [address] Pulmonary Disease 05/17/24 documented as of this encounter
--- OUTSIDE RECORDS SUMMARY | 2024-10-25 10:09 | XMS_ITS | Encounter Summary ---
Author Organization [employer] Address 75 [facility] 7t [place] [address] Care Team Providers Care Component Technician Name Role Phone Sariah Vickers Primary Care Provider [phone] Yuri Pierre PharmD Unavailable [phone] Basilio Hall MD Unavailable [phone] Ron Preciado MD Unavailable [phone] Reason for Visit * Reason Comments Med Refill Encounter Details Date Type Department Care Team (Late st Contact Info) Description 03/26/2022 Refill [facility] 230 [place] [address] Sariah Vickers ANP 230 [place] [address] Social History Tobacco Use Types Packs/Day Years [...] 11/05/2024 2:30 PM EDT Office Visit [address] [address] Hallie Tapia MD [address] [place] [address] 11/12/2024 9:30 AM EDT Clinical Support [address] [address] Azeb Hall RN 505 [place] [address] 01/11/2025 1:00 PM EST Office Visit [address] [address] Sariah Vickers ANP [address] [place] [address] 02/03/2025 11:00 AM EST Medication Management [address] [address] Yuri Pierre, Dileep [address] [place] [address] documented as of this encounter Visit Diagnoses Not on filedocumented in this encounter Care Teams Component Technician Relationship Specialty Start Date End Date Sariah Vickers ANP [address] [place] [address] PCP - General Family Medicine 09/23/19 Yuri Pierre, PharmD [address] [place] [address] Pharmacist Internal Medicine 05/05/24 Basiilo Hall MD 596 [place] [address] Cardiology 05/17/24 Ron Preciado MD [address] [place] [address] Pulmonary Disease 05/17/24 documented as of this encounter
--- OUTSIDE RECORDS SUMMARY | 2024-10-25 10:09 | XMS_ITS | Encounter Summary ---
Author Organization [employer] Address 75 [facility] 7t [place] [address] Care Team Providers Care Picture Copyist Name Role Phone Sariah Vickers Primary Care Provider [phone] Yuri Pierre PharmD Unavailable [phone] Basilio Hall MD Unavailable [phone] Ron Preciado MD Unavailable [phone] Encounter Details Date Type Department Care Team (Latest Contact Info) Description 04/14/2020 Abstract [facility] CONVERSIONS Dental, Provider, DDS Social History [...] Description 11/05/2024 2:30 PM EDT Office Visit [facility] MED[facility]INE [address] [place] [address] Hallie Tapia MD [address] [place] [address] 11/12/2024 9:30 AM EDT Clinical Support [facility] MED[facility] [address] [place] [address] Azeb Hall RN 505 [place] [address] 01/11/2025 1:00 PM EST Office Visit [address] [address] Sariah Vickers ANP [address] [place] [address] 02/03/2025 11:00 AM EST Medication Management [address] [address] Yuri Pierre, PharmBear [address] [place] [address] documented as of this encounter Visit Diagnoses Not on filedocumented in this encounter Care Teams Picture Copyist Relationship Specialty Start Date End Date Sariah Vickers ANP [address] [place] [address] PCP - General Family Medicine 09/23/19 Yuri Pierre, PharmD [address] [place] [address] Pharmacist Internal Medicine 05/05/24 Basilio Hall MD 6 [place] [address] Cardiology 05/17/24 Ron Preciado MD [address] [place] [address] Pulmonary Disease 05/17/24 documented as of this encounter
--- OUTSIDE RECORDS SUMMARY | 2024-10-25 10:09 | XMS_ITS | Encounter Summary ---
Author Organization [employer] Address 75 [facility] 7t [place] [address] Care Team Providers Care Mold Technician Name Role Phone Sariah Vickers Primary Care Provider Yuri Pierre PharmD Unavailable [phone] Basilio Hall MD Unavailable [phone] Ron Preciado MD Unavailable [phone] Reason for Visit * Reason Onset Date Comments Med Refill 09/18/2023 Encounter Details Date Type Department Care Team (Late st Contact Info) Description 09/18/2023 Telephone [facility] MEDICINE 230 [place], [place] [phone] Sariah Vickers ANP 230 [place], [place] [phone] Med Refill Social History Tobacco Use Types [...] refill : Tramadol To be sent to: [facility] - [place], [place] - [address] [place] [address] documented in this encounter Plan of Treatment Upcoming Encounters Date Type Department Care Team ([facility] st Contact Info) Description 11/05/2024 2:30 PM EDT Office Visit [address] [address] Hallie Tapia MD [address] [place] [address] 11/12/2024 9:30 AM EDT Clinical Support [address] [address] Azeb Hall RN 505 [place] [address] 01/11/2025 1:00 PM EST Office Visit [address] [place] [address] Sariah Vickers ANP 230 [place] [address] 02/03/2025 11:00 AM EST Medication Management [facility] 230 [place] [address] Yuri Pierre, MikeD 230 [place] [address] documented as of this encounter Goals Goal [...] documented as of this encounter Care Teams Mold Technician Relationship Specialty Start Date End Date Sariah Vickers ANP [address] [place] [address] PCP - General Family Medicine 09/23/19 Yuri Pierre, PharmD [address] [place] [address] Pharmacist Internal Medicine 05/05/24 Basilio Hall MD 5[address] [place] [address] Cardiology 05/17/24 Ron Preciado MD [address] [place] [address] Pulmonary Disease 05/17/24 documented as of this encounter
--- OUTSIDE RECORDS SUMMARY | 2024-10-25 10:09 | XMS_ITS | Encounter Summary ---
Author Organization [employer] Address 75 [facility] 7t [place] [address] Care Team Providers Care Jinrikisha Driver Name Role Phone Sariah Vickers Primary Care Provider [phone] Yuri Pierre PharmD Unavailable [phone] Basilio Hall MD Unavailable [phone] Ron Preciado MD Unavailable [phone] Reason for Visit * Reason Comments Med Refill Encounter Details Date Type Department Care Team (Late st Contact Info) Description 10/24/2023 Refill [facility] 230 [place] [address] Sariah Vickers ANP 230 [place] [address] Neck pain Social History Tobacco Use Types [...] 11/05/2024 2:30 PM EDT Office Visit [address] [address] Hallie Tapia MD [address] [place] [address] 11/12/2024 9:30 AM EDT Clinical Support [address] [address] Azeb Hall RN 505 [place] [address] 01/11/2025 1:00 PM EST Office Visit [address] [address] Sariah Vickers, ANP [address] [place] [address] 02/03/2025 11:00 AM EST Medication Management [address] [address] Yuri Pierre, PharmD [address] [place] [address] documented as of this encounter Goals Goal [...] documented as of this encounter Care Teams Jinrikisha Driver Relationship Specialty Start Date End Date Sariah Vickers ANP [address] [place] [address] PCP - General Family Medicine 09/23/19 Yuri Pierre PharmD [address] [place] [address] Pharmacist Internal Medicine 05/05/24 Basilio Hall MD [address] [place] [address] Cardiology 05/17/24 Ron Preciado MD [address] [place] [address] Pulmonary Disease 05/17/24 documented as of this encounter
--- OUTSIDE RECORDS SUMMARY | 2024-10-25 10:09 | XMS_ITS | Encounter Summary ---
Author Organization [email or web address] Address 75 [facility] 7t [place] [address] Care Team Providers Care Garnett 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 Helper Name Role Phone Sariah Vickers Primary Care Provider [phone] Yuri Pierre PharmD Unavailable [phone] Basilio Hall MD Unavailable [phone] Ron Preciado MD Unavailable [phone] Reason for Visit * Reason Comments Med Refill Encounter Details Date Type Department Care Team (Late st Contact Info) Description 10/25/2024 Refill [facility] MEDICINE 230 [place] [address] Sariah Vickers ANP 230 [place] [address] Social History Tobacco Use Types Packs/Day Years [...] Description 11/05/2024 2:30 PM EDT Office Visit [address] [address] Hallie Tapia MD [address] [place] [address] 11/12/2024 9:30 AM EDT Clinical Support [address] [address] Azeb Hall RN 505 [place] [address] 01/11/2025 1:00 PM EST Office Visit [address] [address] Sariah Vickers ANP [address] [place] [address] 02/03/2025 11:00 AM EST Medication Management [address] [address] Yuri Pierre, PharmD 230 [place] [address] documented as of this encounter Goals Goal [...] documented as of this encounter Care Teams Garnett 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 Helper Relationship Specialty Start Date End Date Sariah Vickers ANP 230 [place] [address] PCP - General Family Medicine 09/23/19 Yuri Pierre, MikeD 230 [place] [address] Pharmacist Internal Medicine 05/05/24 Basilio Hall MD 5[address] [place] [address] Cardiology 05/17/24 Ron Preciado MD [address] [place] [address] Pulmonary Disease 05/17/24 documented as of this encounter
--- OUTSIDE RECORDS SUMMARY | 2024-10-25 10:09 | XMS_ITS | Encounter Summary ---
Author Organization [employer] Address 75 [facility] 7t [place] [address] Care Team Providers Care Flatware Maker Name Role Phone Sariah Vickers Primary Care Provider Yuri Pierre PharmD Unavailable [phone] Basilio Hall MD Unavailable [phone] Ron Preciado MD Unavailable [phone] Reason for Visit * Reason Comments Med Refill Encounter Details Date Type Department Care Team (Late st Contact Info) Description 03/03/2022 Refill [facility] MEDICINE 230 [place] [address] Sariah Vickers ANP 230 [place] [address] Social History Tobacco Use Types Packs/Day Years [...] Description 11/05/2024 2:30 PM EDT Office Visit [address] [address] Hallie Tapia MD [address] [place] [address] 11/12/2024 9:30 AM EDT Clinical Support [address] [address] Azeb Hall RN 505 [place] [address] 01/11/2025 1:00 PM EST Office Visit [address] [address] Sariah Vickers ANP [address] [place] [address] 02/03/2025 11:00 AM EST Medication Management [address] [address] Yuri Pierre, Dileep [address] [place] [address] documented as of this encounter Visit Diagnoses Not on filedocumented in this encounter Care Teams Flatware Maker Relationship Specialty Start Date End Date Sariah Vickers ANP [address] [place] [address] PCP - General Family Medicine 09/23/19 Yuri Pierre, PharmD [address] [place] [address] Pharmacist Internal Medicine 05/05/24 Basilio Hall MD 596 [place] [address] Cardiology 05/17/24 Ron Preciado MD [address] [place] [address] Pulmonary Disease 05/17/24 documented as of this encounter
--- OUTSIDE RECORDS SUMMARY | 2024-10-25 10:10 | XMS_ITS | Encounter Summary ---
Author Organization [employer] Address 75 [facility] 7t [place] [address] Care Team Providers Care Accounting Analyst Name Role Phone Sariah Vickers Primary Care Provider [phone] Yuri Pierre PharmD Unavailable [phone] Basilio Hall MD Unavailable [phone] Ron Preciado MD Unavailable [phone] Reason for Visit * Reason Comments Med Refill Encounter Details Date Type Department Care Team (Late st Contact Info) Description 10/17/2023 Refill [facility] MEDICINE 230 [place] [address] Sariah Vickers ANP 230 [place] [address] Neck pain Social History Tobacco Use Types [...] Description 11/05/2024 2:30 PM EDT Office Visit [address] [address] Hallie Tapia MD [address] [place] [address] 11/12/2024 9:30 AM EDT Clinical Support [address] [address] Azeb Hall RN 505 [place] [address] 01/11/2025 1:00 PM EST Office Visit [address] [address] Sariah Vickers, ANP [address] [place] [address] 02/03/2025 11:00 AM EST Medication Management [address] [address] Yuri Pierre, PharmD [address] [place] [address] documented as of this encounter Goals Goal [...] documented as of this encounter Care Teams Accounting Analyst Relationship Specialty Start Date End Date Sariah Vickers ANP [address] [place] [address] PCP - General Family Medicine 09/23/19 Yuri Pierre PharmD [address] [place] [address] Pharmacist Internal Medicine 05/05/24 Basilio Hall MD [address] [place] [address] Cardiology 05/17/24 Ron Preciado MD [address] [place] [address] Pulmonary Disease 05/17/24 documented as of this encounter
--- OUTSIDE RECORDS SUMMARY | 2024-10-25 10:10 | XMS_ITS | Encounter Summary ---
Author Organization [employer] Address 75 [facility] 7t [place] [address] Care Team Providers Care Guest Experience Captain Name Role Phone Sariah Vickers Primary Care Provider [phone] Yuri Pierre PharmD Unavailable [phone] Basilio Hall MD Unavailable [phone] Ron Preciado MD Unavailable [phone] Encounter Details Date Type Department Care Team (Late st Contact Info) Description 10/20/2024 Results Follow-Up [facility] MEDICINE 230 [place] [address] Sariah Vickers ANP 230 [place] [address] Prothrombin Time-INR, C-reactive Protein, Amylase, Additional followed-up [...] 2:30 PM EDT Office Visit [facility]INE [address] [place] [address] Hallie Tapia MD [address] [place] [address] 11/12/2024 9:30 AM EDT Clinical Support [address] [address] Azeb Hall RN 505 [place] [address] 01/11/2025 1:00 PM EST Office Visit [address] [address] Sariah Vickers ANP 230 [place] [address] 02/03/2025 11:00 AM EST Medication Management [facility] MEDICINE 230 [place] [address] Yuri Pierre, PharmD 230 [place] [address] documented as of this encounter Goals Goal Patient Goal Type Associated Problems Recent Progress Patient-Stated? Author Blood Pressure < 140/90 Blood Pressure 140/90(2024 1:50 PM EDT) No Aiad Ragland PharmD Record Your Blood Sugar As Directed General No Aida Ragland PharmD Hemoglobin A1c < 7 Result Component 6.6( 1:54 PM EDT) No Aida Ragland PharmD documented as of this encounter Visit Diagnoses Not on filedocumented in this encounter Additional Health Concerns Assessment Noted Time PHQ-9 Depression Total Score: 11 025 5:30 PM EDT documented as of this encounter Care Teams Guest Experience Captain Relationship Specialty Start Date End Date Sariah Vickers ANP [address] [place] [address] PCP - General Family Medicine 09/23/19 Yuri Pierre, PharmD [address] [place] [address] Pharmacist Internal Medicine 05/05/24 Basilio Hall MD 596 [place] [address] Cardiology 05/17/24 Ron Preciado MD [address] [place] [address] Pulmonary Disease 05/17/24 documented as of this encounter
--- OUTSIDE RECORDS SUMMARY | 2024-10-25 10:10 | XMS_ITS | Encounter Summary ---
Author Organization [employer] Address 75 [facility] 7t [place] [address] Care Team Providers Care Pantograph Operator Name Role Phone Sariah Vickers Primary Care Provider [phone] Yuri Pierre PharmD Unavailable [phone] Basilio Hall MD Unavailable [phone] Ron Preciado MD Unavailable [phone] Reason for Visit * Reason Onset Date Comments Med Refill 01/09/2024 Encounter Details Date Type Department Care Team (Late st Contact Info) Description 01/09/2024 Telephone [facility] MEDICINE 230 [place] [address] Sariah Vickers ANP 230 [place], [place] [phone] Med Refill Social History Tobacco Use Types [...] 11/05/2024 2:30 PM EDT Office Visit [address] [address] Hallie Tapia MD [address] [place] [address] 11/12/2024 9:30 AM EDT Clinical Support [address] [address] Azeb Hall RN 505 [place] [address] 01/11/2025 1:00 PM EST Office Visit [address] [address] Sariah Vickers, KAYLEE [address] [place] [address] 02/03/2025 11:00 AM EST Medication Management [address] [address] Yuri Pierre, PharmD [address] [place] [address] documented as of this encounter Goals Goal [...] documented as of this encounter Care Teams Pantograph Operator Relationship Specialty Start Date End Date Sariah Vickers ANP 230 [place] [address] PCP - General Family Medicine 09/23/19 Yuri Pierre, MikeD [address] [place] [address] Pharmacist Internal Medicine 05/05/24 Basilio Hall MD 596 [place] [address] Cardiology 05/17/24 Ron Preciado MD [address] [place] [address] Pulmonary Disease 05/17/24 documented as of this encounter
--- OUTSIDE RECORDS SUMMARY | 2024-10-25 10:10 | XMS_ITS | Encounter Summary ---
Author Organization [employer] Address 75 [facility] 7t [place] [address] Care Team Providers Care Detention Officer Name Role Phone Sariah Vickers Primary Care Provider [phone] Yuri Pierre PharmD Unavailable [phone] Basilio Hall MD Unavailable [phone] Ron Preciado MD Unavailable [phone] Reason for Visit * Reason Comments Med Refill Encounter Details Date Type Department Care Team (Late st Contact Info) Description 10/19/2024 Refill [facility] MED & PEDS [address] [place] [address] Sariah Vickers ANP 230 [place] [address] Cervicalgia Social History Tobacco Use Types Packs/Day [...] half the days 10/19/2024 5:30 PM EDT [email or web address] * Trouble falling or staying asleep, [...] 11/05/2024 2:30 PM EDT Office Visit [address] [address] Hallie Tapia MD [address] [place] [address] 11/12/2024 9:30 AM EDT Clinical Support [address] [address] Azeb Hall RN 505 [place] [address] 01/11/2025 1:00 PM EST Office Visit [address] [address] Sariah Vickers ANP [address] [place] [address] 02/03/2025 11:00 AM EST Medication Management [facility] MEDICINE 230 [place] [address] Yuri Pierre, PharmD 230 [place] [address] documented as of this encounter Goals Goal [...] documented as of this encounter Care Teams Detention Officer Relationship Specialty Start Date End Date Sariah Vickers ANP 230 [place] [address] PCP - General Family Medicine 09/23/19 Yuri Pierre, PharmD 230 [place] [address] Pharmacist Internal Medicine 05/05/24 Basilio Hall MD 596 [place] [address] Cardiology 05/17/24 Ron Preciado MD [address] [place] [address] Pulmonary Disease 05/17/24 documented as of this encounter
--- OUTSIDE RECORDS SUMMARY | 2024-10-25 10:10 | XMS_ITS | Encounter Summary ---
Author Organization [employer] Address 75 [facility] 7t [place] [address] Care Team Providers Care Can Repairer Name Role Phone Sariah Vickers Primary Care Provider [phone] Yuri Pierre PharmD Unavailable [phone] Basilio Hall MD Unavailable [phone] Ron Preciado MD Unavailable [phone] Reason for Visit * Reason Comments Med Refill Encounter Details Date Type Department Care Team (Late st Contact Info) Description 11/24/2023 Refill [facility] MEDICINE 230 [place] [address] Sariah Vickers ANP 230 [place] [address] Vertigo Social History Tobacco Use Types Packs/Day [...] 11/05/2024 2:30 PM EDT Office Visit [address] [address] Hallie Tapia MD [address] [place] [address] 11/12/2024 9:30 AM EDT Clinical Support [address] [address] Azeb Hall RN 505 [place] [address] 01/11/2025 1:00 PM EST Office Visit [address] [address] Sariah Vickers, ANP [address] [place] [address] 02/03/2025 11:00 AM EST Medication Management [address] [address] Yuri Pierre, PharmD [address] [place] [address] documented as of this encounter Goals Goal [...] documented as of this encounter Care Teams Can Repairer Relationship Specialty Start Date End Date Sariah Vickers ANP 230 [place] [address] PCP - General Family Medicine 09/23/19 Yuri Pierre, MikeD [address] [place] [address] Pharmacist Internal Medicine 05/05/24 Basilio Hall MD [address] [place] [address] Cardiology 05/17/24 Ron Preciado MD [address] [place] [address] Pulmonary Disease 05/17/24 documented as of this encounter
--- OUTSIDE RECORDS SUMMARY | 2024-10-25 10:10 | XMS_ITS | Encounter Summary ---
Author Organization [employer] Address 75 [facility] 7t [place] [address] Care Team Providers Care Lens Generator Name Role Phone Sariah Vickers Primary Care Provider [phone] Yuri Pierre PharmD Unavailable [phone] Basilio Hall MD Unavailable [phone] Ron Preciado MD Unavailable [phone] Reason for Visit * Reason Comments Med Refill Encounter Details Date Type Department Care Team (Late st Contact Info) Description 01/04/2024 Refill [facility] CH[facility] MED & PEDS [address] [place] [address] Sariah Vickers ANP 230 [place] [address] Cervicalgia Social History Tobacco Use Types Packs/Day [...] Description 11/05/2024 2:30 PM EDT Office Visit [address] [address] Hallie Tapia MD [address] [place] [address] 11/12/2024 9:30 AM EDT Clinical Support [address] [address] Azeb Hall RN [address] [place] [address] 01/11/2025 1:00 PM EST Office Visit [address] [address] Sariah Vickers, KAYLEE [address] [place] [address] 02/03/2025 11:00 AM EST Medication Management [address] [address] Yuri Pierre, PharmD [address] [place] [address] documented as of this encounter Goals Goal [...] as of this encounter Care Teams Lens Generator Relationship Specialty Start Date End Date Sariah Vickers ANP 230 [place] [address] PCP - General Family Medicine 09/23/19 Yuri Pierre, MikeD [address] [place] [address] Pharmacist Internal Medicine 05/05/24 Basilio Hall MD [address] [place] [address] Cardiology 05/17/24 Ron Preciado MD [address] [place] [address] Pulmonary Disease 05/17/24 documented as of this encounter
--- OUTSIDE RECORDS SUMMARY | 2024-10-25 10:10 | XMS_ITS | Encounter Summary ---
Author Organization [employer] Address 75 [facility] 7t [place] [address] Care Team Providers Care Solar Photovoltaic Designer Name Role Phone Sariah Vickers Primary Care Provider [phone] Yuri Pierre PharmD Unavailable [phone] Basilio Hall MD Unavailable [phone] Ron Preciado MD Unavailable [phone] Reason for Visit * Reason Comments Med Refill Encounter Details Date Type Department Care Team (Late st Contact Info) Description 01/06/2024 Refill [facility] CH[facility] MED & PEDS [address] [place] [address] Sariah Vickers ANP 230 [place] [address] Cervicalgia Social History Tobacco Use Types Packs/Day [...] Description 11/05/2024 2:30 PM EDT Office Visit [address] [address] Hallie Tapia MD [address] [place] [address] 11/12/2024 9:30 AM EDT Clinical Support [address] [address] Azeb Hall RN [address] [place] [address] 01/11/2025 1:00 PM EST Office Visit [address] [address] Sariah Vickers, KAYLEE [address] [place] [address] 02/03/2025 11:00 AM EST Medication Management [address] [address] Yuri Pierre, PharmD [address] [place] [address] documented as of this encounter Goals Goal [...] documented as of this encounter Care Teams Solar Photovoltaic Designer Relationship Specialty Start Date End Date Sariah Vickers ANP 230 [place] [address] PCP - General Family Medicine 09/23/19 Yuri Pierre, MikeD [address] [place] [address] Pharmacist Internal Medicine 05/05/24 Basilio Hall MD [address] [place] [address] Cardiology 05/17/24 Ron Preciado MD [address] [place] [address] Pulmonary Disease 05/17/24 documented as of this encounter
--- OUTSIDE RECORDS SUMMARY | 2024-10-25 10:10 | XMS_ITS | Encounter Summary ---
Author Organization [employer] Address 75 [facility] 7t [place] [address] Care Team Providers Care Quality Nurse Name Role Phone Sariah Vickers Primary Care Provider [phone] Yuri Pierre PharmD Unavailable [phone] Basilio Hall MD Unavailable [phone] Ron Preciado MD Unavailable [phone] Reason for Visit * Reason Comments Med Refill Encounter Details Date Type Department Care Team (Late st Contact Info) Description 11/14/2023 Refill [facility] 230 [place] [address] Sariah Vickers ANP 230 [place] [address] Neck pain Social History Tobacco Use Types [...] 11/05/2024 2:30 PM EDT Office Visit [address] [address] Hallie Tapia MD [address] [place] [address] 11/12/2024 9:30 AM EDT Clinical Support [address] [address] Azeb Hall RN 505 [place] [address] 01/11/2025 1:00 PM EST Office Visit [address] [address] Sariah Vickers, ANP [address] [place] [address] 02/03/2025 11:00 AM EST Medication Management [address] [address] Yuri Pierre, PharmD [address] [place] [address] documented as of this encounter Goals [...] as of this encounter Care Teams Quality Nurse Relationship Specialty Start Date End Date Sariah Vickers ANP [address] [place] [address] PCP - General Family Medicine 09/23/19 Yuri Pierre PharmD [address] [place] [address] Pharmacist Internal Medicine 05/05/24 Basilio Hall MD [address] [place] [address] Cardiology 05/17/24 Ron Preciado MD [address] [place] [address] Pulmonary Disease 05/17/24 documented as of this encounter
--- OUTSIDE RECORDS SUMMARY | 2024-10-25 10:10 | XMS_ITS | Encounter Summary ---
Author Organization [employer] Address 75 [facility] 7t [place] [address] Care Team Providers Care X Ray Developer Name Role Phone Sariah Vickers Primary Care Provider [phone] Yuri Pierre PharmD Unavailable [phone] Basilio Hall MD Unavailable [phone] Ron Preciado MD Unavailable [phone] Reason for Visit * Reason Comments Med Refill Encounter Details Date Type Department Care Team (Late st Contact Info) Description 11/26/2023 Refill [facility] MEDICINE 230 [place] [address] Sariah Vickers ANP 230 [place] [address] Vertigo Social History Tobacco Use Types Packs/Day [...] 11/05/2024 2:30 PM EDT Office Visit [address] [address] Hallie Tapia MD [address] [place] [address] 11/12/2024 9:30 AM EDT Clinical Support [address] [address] Azeb Hall RN 505 [place] [address] 01/11/2025 1:00 PM EST Office Visit [address] [address] Sariah Vickers, ANP [address] [place] [address] 02/03/2025 11:00 AM EST Medication Management [address] [address] Yuri Pierre, PharmD [address] [place] [address] documented as of this encounter Goals Goal [...] documented as of this encounter Care Teams X Ray Developer Relationship Specialty Start Date End Date Sariah Vickers ANP 230 [place] [address] PCP - General Family Medicine 09/23/19 Yuri Pierre, MikeD [address] [place] [address] Pharmacist Internal Medicine 05/05/24 Basilio Hall MD [address] [place] [address] Cardiology 05/17/24 Ron Preciado MD [address] [place] [address] Pulmonary Disease 05/17/24 documented as of this encounter
--- OUTSIDE RECORDS SUMMARY | 2024-10-25 10:10 | XMS_ITS | Encounter Summary ---
Author Organization [employer] Address 75 [facility] 7t [place] [address] Care Team Providers Care Electrical Tech/Project Manager Name Role Phone Sariah Vickers Primary Care Provider [phone] Yuir Pierre PharmD Unavailable [phone] Basilio Hall MD Unavailable [phone] Ron Preciado MD Unavailable [phone] Reason for Visit * Reason Comments Med Refill Encounter Details Date Type Department Care Team (Late st Contact Info) Description 12/17/2023 Refill [facility] MEDICINE 230 [place] [address] Sariah Vickers ANP 230 [place] [address] Chronic SI joint pain Social History Tobacco [...] 11/05/2024 2:30 PM EDT Office Visit [address] [address] Hallie Tapia MD [address] [place] [address] 11/12/2024 9:30 AM EDT Clinical Support [address] [address] Azeb Hall RN [address] [place] [address] 01/11/2025 1:00 PM EST Office Visit [address] [address] Sariah Vickers, KAYLEE [address] [place] [address] 02/03/2025 11:00 AM EST Medication Management [address] [address] Yuri Pierre, PharmD [address] [place] [address] documented as of this encounter Goals Goal [...] as of this encounter Care Teams Electrical Tech/Project Manager Relationship Specialty Start Date End Date Sariah Vickers ANP 230 [place] [address] PCP - General Family Medicine 09/23/19 Yuri Pierre, MikeD 230 [place] [address] Pharmacist Internal Medicine 05/05/24 Basilio Hall MD 596 [place] [address] Cardiology 05/17/24 Ron Preciado MD [address] [place] [address] Pulmonary Disease 05/17/24 documented as of this encounter
--- OUTSIDE RECORDS SUMMARY | 2024-10-25 10:10 | XMS_ITS | Encounter Summary ---
Author Organization [employer] Address 75 [facility] 7t [place] [address] Care Team Providers Care Supervisor Wall Mirror Department Name Role Phone Sariah Vickers Primary Care Provider [phone] Yuri Pierre PharmD Unavailable [phone] Basilio Hall MD Unavailable [phone] Ron Preciado MD Unavailable [phone] Reason for Visit * Reason Comments Med Refill Encounter Details Date Type Department Care Team (Late st Contact Info) Description 01/06/2024 Refill [facility] MED & PEDS [address] [place] [address] Sariah Vickers ANP 230 [place] [address] Cervicalgia Social History Tobacco Use Types Packs/Day [...] 11/05/2024 2:30 PM EDT Office Visit [address] [address] Hallie Tapia MD [address] [place] [address] 11/12/2024 9:30 AM EDT Clinical Support [address] [address] Azeb Hall RN [address] [place] [address] 01/11/2025 1:00 PM EST Office Visit [address] [address] Sariah Vickers, KAYLEE [address] [place] [address] 02/03/2025 11:00 AM EST Medication Management [address] [address] Yuri Pierre, PharmD [address] [place] [address] documented as of this encounter Goals Goal [...] as of this encounter Care Teams Supervisor Wall Mirror Department Relationship Specialty Start Date End Date Sariah Vickers ANP 230 [place] [address] PCP - General Family Medicine 09/23/19 Yrui Pierre, MikeD [address] [place] [address] Pharmacist Internal Medicine 05/05/24 Basilio Hall MD [address] [place] [address] Cardiology 05/17/24 Ron Preciado MD [address] [place] [address] Pulmonary Disease 05/17/24 documented as of this encounter
--- OUTSIDE RECORDS SUMMARY | 2024-10-25 10:11 | XMS_ITS | Encounter Summary ---
Author Organization [employer] Address 75 [facility] 7t [place] [address] Care Team Providers Care Jig And Fixture Maker Name Role Phone Sariah Vickers Primary Care Provider [phone] Yuri Pierre PharmD Unavailable [phone] Basilio Hall MD Unavailable [phone] Ron Preciado MD Unavailable [phone] Reason for Visit * Reason Comments Med Refill Encounter Details Date Type Department Care Team (Late st Contact Info) Description 05/23/2024 Refill [facility] MED & PEDS [address] [place] [address] Sariah Vickers ANP [address] [place] [address] Cervicalgia Social History Tobacco Use Types Packs/Day [...] 11/05/2024 2:30 PM EDT Office Visit [address] [address] Hallie Tapia MD [address] [place] [address] 11/12/2024 9:30 AM EDT Clinical Support [address] [address] Azeb Hall RN [address] [place] [address] 01/11/2025 1:00 PM EST Office Visit [address] [address] Sariah Vickers, KAYLEE [address] [place] [address] 02/03/2025 11:00 AM EST Medication Management [address] [address] Yuri Pierre, PharmD [address] [place] [address] documented as of this encounter Goals Goal [...] documented as of this encounter Care Teams Jig And Fixture Maker Relationship Specialty Start Date End Date Sariah Vickers ANP [address] [place] [address] PCP - General Family Medicine 09/23/19 Yuri Pierre, MikeD [address] [place] [address] Pharmacist Internal Medicine 05/05/24 Basilio Hall MD [address] [place] [address] Cardiology 05/17/24 oRn Preciado MD [address] [place] [address] Pulmonary Disease 05/17/24 documented as of this encounter
--- OUTSIDE RECORDS SUMMARY | 2024-10-25 10:11 | XMS_ITS | Encounter Summary ---
Author Organization [employer] Address 75 [facility] 7t [place] [address] Care Team Providers Care Sightseeing Guide Name Role Phone Sariah Vickers Primary Care Provider [phone] Yuri Pierre PharmD Unavailable [phone] Basilio Hall MD Unavailable [phone] Ron Preciado MD Unavailable [phone] Reason for Visit * Reason Comments Med Refill Encounter Details Date Type Department Care Team (Late st Contact Info) Description 07/10/2022 Refill [facility] MEDICINE 230 [place] [address] Sariah Vickers ANP [address] [place] [address] Vertigo Social History Tobacco Use Types Packs/Day [...] Description 11/05/2024 2:30 PM EDT Office Visit [address] [address] Hallie Tapia MD [address] [place] [address] 11/12/2024 9:30 AM EDT Clinical Support [address] [address] Azeb Hall RN 505 [place] [address] 01/11/2025 1:00 PM EST Office Visit [address] [address] Sariah Vickers ANP [address] [place] [address] 02/03/2025 11:00 AM EST Medication Management [address] [address] Yuri Pierre, Dileep [address] [place] [address] documented as of this encounter Visit Diagnoses Diagnosis Vertigo Dizziness and giddiness documented in this encounter Care Teams Sightseeing Guide Relationship Specialty Start Date End Date Sariah Vickers ANP [address] [place] [address] PCP - General Family Medicine 09/23/19 Yuri Pierre, PharmD [address] [place] [address] Pharmacist Internal Medicine 05/05/24 Basilio Hall MD 5[address] [place] [address] Cardiology 05/17/24 Ron Preciado MD [address] [place], [place] [address] Pulmonary Disease 05/17/24 documented as of this encounter
--- OUTSIDE RECORDS SUMMARY | 2024-10-25 10:11 | XMS_ITS | Encounter Summary ---
Author Organization [employer] Address 75 [facility] 7t [place] [address] Care Team Providers Care Supervisor Belt And Link Assembly Name Role Phone Sariah Vickers Primary Care Provider [phone] Yuri Pierre PharmD Unavailable [phone] Basilio Hall MD Unavailable [phone] Ron Preciado MD Unavailable [phone] Reason for Visit * Reason Onset Date Comments Referral 08/02/2024 Encounter Details Date Type Department Care Team (Late st Contact Info) Description 08/02/2024 Telephone [facility] MEDICINE 230 [place], [place] [phone] Sariah Vickers ANP [address] [place], [place] [phone] Referral Social History Tobacco Use Types Packs/Day [...] for vertigo therapy. Please contact pt at [phone]. (Iraqi Speaker) documented in this encounter Plan of Treatment Upcoming Encounters Date Type Department Care Team (Late st Contact Info) Description 11/05/2024 2:30 PM EDT Office Visit [facility] MEDICINE [address] [place] [address] Hallie Tapia MD 230 [place] [address] 11/12/2024 9:30 AM EDT Clinical Support [facility] [address] [place] [address] Azeb Hall, MARTIN 505 [place] [address] 01/11/2025 1:00 PM EST Office Visit [address] [phone] Sariah Vickers ANP [address] [place] [address] 02/03/2025 11:00 AM EST Medication Management [address] [phone] Yuri Pierre, Dileep [address] [place], [place] documented as of this encounter Goals [...] as of this encounter Care Teams Supervisor Belt And Link Assembly Relationship Specialty Start Date End Date Sariah Vickers ANP [address] [place] [address] PCP - General Family Medicine 09/23/19 Yuri Pierre, PharmD [address] [place] [address] Pharmacist Internal Medicine 05/05/24 Basilio Hall MD [address] [place], [place] Cardiology 05/17/24 Ron Preciado MD [address] [place] [address] Pulmonary Disease 05/17/24 documented as of this encounter
--- OUTSIDE RECORDS SUMMARY | 2024-10-25 10:11 | XMS_ITS | Encounter Summary ---
Author Organization [employer] Address 75 [facility] 7t [place] [address] Care Team Providers Care Phlebotomy Technologist Name Role Phone Sariah Vickers Primary Care Provider [phone] Yuri Pierre PharmD Unavailable [phone] Basilio Hall MD Unavailable [phone] Ron Preciado MD Unavailable [phone] Reason for Visit * Reason Comments Med Refill Encounter Details Date Type Department Care Team (Late st Contact Info) Description 12/19/2022 Refill [facility] MEDICINE 230 [place] [address] Sariah Vickers ANP 230 [place] [address] Vertigo Social History Tobacco Use Types Packs/Day [...] Description 11/05/2024 2:30 PM EDT Office Visit [address] [address] Hallie Tapia MD [address] [place] [address] 11/12/2024 9:30 AM EDT Clinical Support [address] [address] Azeb Hall, RN 505 [place] [address] 01/11/2025 1:00 PM EST Office Visit [address] [address] Sariah Vickers ANP [address] [place] [address] 02/03/2025 11:00 AM EST Medication Management [address] [address] Yuri Pierre, PharmD [address] [place] [address] documented as of this encounter Goals Goal [...] giddiness documented in this encounter Care Teams Phlebotomy Technologist Relationship Specialty Start Date End Date Sariah Vickers ANP 230 [place] [address] PCP - General Family Medicine 09/23/19 Yuri Pierre, MikeD [address] [place] [address] Pharmacist Internal Medicine 05/05/24 Basilio Hall MD [address] [place] [address] Cardiology 05/17/24 Ron Preciado MD [address] [place] [address] Pulmonary Disease 05/17/24 documented as of this encounter
--- OUTSIDE RECORDS SUMMARY | 2024-10-25 10:11 | XMS_ITS | Encounter Summary ---
Author Organization [employer] Address 75 [facility] 7t [place] [address] Care Team Providers Care Boot Liner Maker Name Role Phone Sariah Vickers Primary Care Provider [phone] Yuri Pierre PharmD Unavailable [phone] Basilio Hall MD Unavailable [phone] Ron Preciado MD Unavailable [phone] Reason for Visit * Reason Comments Med Refill Encounter Details Date Type Department Care Team (Late st Contact Info) Description 05/09/2023 Refill [facility] MEDICINE 230 [place] [address] Sariah Vickers ANP 230 [place] [address] High cholesterol Social History Tobacco Use Types [...] Description 11/05/2024 2:30 PM EDT Office Visit [address] [address] Hallie Tapia MD [address] [place] [address] 11/12/2024 9:30 AM EDT Clinical Support [address] [address] Azeb Hall, RN 505 [place] [address] 01/11/2025 1:00 PM EST Office Visit [address] [address] Sariah Vickers ANP [address] [place] [address] 02/03/2025 11:00 AM EST Medication Management [address] [address] Yuri Pierre, PharmD [address] [place] [address] documented as of this encounter Goals Goal [...] hypercholesterolemia documented in this encounter Care Teams Boot Liner Maker Relationship Specialty Start Date End Date Sariah Vickers ANP 230 [place] [address] PCP - General Family Medicine 09/23/19 Yuri Pierre, MikeD 230 [place] [address] Pharmacist Internal Medicine 05/05/24 Basilio Hall MD 596 [place] [address] Cardiology 05/17/24 Ron Preciado MD [address] [place] [address] Pulmonary Disease 05/17/24 documented as of this encounter
--- OUTSIDE RECORDS SUMMARY | 2024-10-25 10:11 | XMS_ITS | Encounter Summary ---
Author Organization [employer] Address 75 [facility] 7t [place] [address] Care Team Providers Care Vp Marketing Services And Skin Name Role Phone Sariah Vickers Primary Care Provider [phone] Yuri Pierre PharmD Unavailable [phone] Basilio Hall MD Unavailable [phone] Ron Preciado MD Unavailable [phone] Reason for Visit * Reason Comments Med Refill Encounter Details Date Type Department Care Team (Late st Contact Info) Description 03/07/2023 Refill [facility] MEDICINE 230 [place] [address] Sariah Vickers ANP 230 [place] [address] Vertigo Social History Tobacco Use Types Packs/Day [...] 11/05/2024 2:30 PM EDT Office Visit [address] [address] Hallie Tapia MD [address] [place] [address] 11/12/2024 9:30 AM EDT Clinical Support [address] [address] Azeb Hall, RN 505 [place] [address] 01/11/2025 1:00 PM EST Office Visit [address] [address] Sariah Vickers ANP [address] [place] [address] 02/03/2025 11:00 AM EST Medication Management [address] [address] Yuri Pierre, PharmD [address] [place] [address] documented as of this encounter Goals Goal [...] giddiness documented in this encounter Care Teams Vp Marketing Services And Skin Relationship Specialty Start Date End Date Sariah Vickers ANP 230 [place] [address] PCP - General Family Medicine 09/23/19 Yuri Pierre, MikeD [address] [place] [address] Pharmacist Internal Medicine 05/05/24 Basilio Hall MD [address] [place] [address] Cardiology 05/17/24 Ron Preciado MD [address] [place] [address] Pulmonary Disease 05/17/24 documented as of this encounter
--- OUTSIDE RECORDS SUMMARY | 2024-10-25 10:11 | XMS_ITS | Encounter Summary ---
Author Organization [employer] Address 75 [facility] 7t [place] [address] Care Team Providers Care Machine Pecan Picker Name Role Phone Sariah Vickers Primary Care Provider [phone] Yuri Pierre PharmD Unavailable [phone] Basilio Hall MD Unavailable [phone] Ron Preciado MD Unavailable [phone] Reason for Visit * Reason Comments Med Refill Encounter Details Date Type Department Care Team (Late st Contact Info) Description 02/28/2023 Refill [facility] MEDICINE 230 [place] [address] Sariah Vickers ANP 230 [place] [address] Cervicalgia Social History Tobacco Use Types Packs/Day [...] Description 11/05/2024 2:30 PM EDT Office Visit [address] [address] Hallie Tapia MD [address] [place] [address] 11/12/2024 9:30 AM EDT Clinical Support [address] [address] Azeb Hall, RN 505 [place] [address] 01/11/2025 1:00 PM EST Office Visit [address] [address] Sariah Vickers ANP [address] [place] [address] 02/03/2025 11:00 AM EST Medication Management [address] [address] Yuri Pierre, PharmD [address] [place] [address] documented as of this encounter Goals Goal [...] documented in this encounter Care Teams Machine Pecan Picker Relationship Specialty Start Date End Date Sariah Vickers ANP 230 [place] [address] PCP - General Family Medicine 09/23/19 Yuri Pierre, MikeD [address] [place] [address] Pharmacist Internal Medicine 05/05/24 Basilio Hall MD 596 [place] [address] Cardiology 05/17/24 Ron Preciado MD [address] [place] [address] Pulmonary Disease 05/17/24 documented as of this encounter
--- OUTSIDE RECORDS SUMMARY | 2024-10-25 10:11 | XMS_ITS | Encounter Summary ---
Author Organization [employer] Address 75 [facility] 7t [place] [address] Care Team Providers Care Industrial Gas Servicer Name Role Phone Anthony Ruiz Primary Care Provider [phone] Yuri Pierre PharmD Unavailable [phone] Basilio Hall MD Unavailable [phone] Ron Preciado MD Unavailable [phone] Encounter Details Date Type Department Care Team (Late st Contact Info) Description 09/28/2024 Orders Only [facility] MEDICINE 230 [place] [address] Anthony Ruiz ANP 230 [place] [address] Social History Tobacco Use Types Packs/Day Years [...] 11/05/2024 2:30 PM EDT Office Visit [address] [address] Hallie Tapia MD [address] [place] [address] 11/12/2024 9:30 AM EDT Clinical Support [address] [address] Azeb Hall RN 505 [place] [address] 01/11/2025 1:00 PM EST Office Visit [address] [address] Anthony Ruiz ANP [address] [place] [address] 02/03/2025 11:00 AM EST Medication Management [address] [address] Yuri Pierre, PharmD [address] [place] [address] documented as of this encounter Goals Goal [...] PM EDT Narrative 10/09/2024 1:20 PM EDT [address] [address] [address] Scan Report Signed Patient: Nuvia Fay MR #: [id number] : [id number] Acct:[id number] Age/Sex: 64 / F ADM Date: 10/08/24 Loc: HO.CT Attending Dr: Ron Preciado MD Ordering Physician: Ron Preciado MD Date of Service: 10/08/24 Procedure(s): CT lung screening Accession Number(s): [id number] cc: Ron Preciado MD; ANTHONY RUIZ NP Report Number: [id number]: Total DLP = 64.00 mGy-cm CLINICAL HISTORY: [...] 10/09/24 1319 DD/ 1318 TD/TT: 10/09/24 1318 Filament Welder: Procedure Note Donotuseinterpreter, Image - 10/09/[address] [address] [address] Scan Report Signed Patient: Nuvia Fay EMR #: [id number] : 1Acct:[id number] Age/Sex: 64 / FADM Date: 10/08/24 Loc: HO.CT Attending Dr: Ron Preciado MD Ordering Physician: Ron Preciado MD Date of Service: 10/08/24 Procedure(s): CT lung screening Accession Number(s): [id number] cc: Ron Preciado MD; ANTHONY RUIZ NP Report Number: [id number]: Total DLP = 64.00 mGy-cm CLINICAL HISTORY: [...] 10/09/24 1319 DD/ 1318 TD/TT: 10/09/24 1318 Filament Welder: [facility] External Provider IMG CT PROCEDURES Edited Result - Final documented in this encounter Visit Diagnoses Not on filedocumented in this encounter Additional Health Concerns Assessment Noted Time PHQ-9 Depression Total Score: 12 024 2:58 PM EDT documented as of this encounter Care Teams Industrial Gas Servicer Relationship Specialty Start Date End Date Anthony Ruiz ANP 230 [place] [address] PCP - General Family Medicine 09/23/19 Yuri Pierre, MikeD 230 [place] [address] Pharmacist Internal Medicine 05/05/24 Basilio Hall MD 596 [place] [address] Cardiology 05/17/24 Ron Preciado MD [address] [place] [address] Pulmonary Disease 05/17/24 documented as of this encounter
--- OUTSIDE RECORDS SUMMARY | 2024-10-25 10:11 | XMS_ITS | Encounter Summary ---
Author Organization [employer] Address 75 [facility] 7t [place] [address] Care Team Providers Care Principal Consulting Engineer Name Role Phone Sariah Vickers Primary Care Provider Yuri Pierre PharmD Unavailable [phone] Basilio Hall MD Unavailable [phone] Ron Preciado MD Unavailable [phone] Reason for Visit * Reason Comments Med Refill Encounter Details Date Type Department Care Team (Late st Contact Info) Description 07/12/2022 Refill [facility] MEDICINE 230 [place] [address] Sariah Vickers ANP 230 [place] [address] Social History Tobacco Use Types Packs/Day Years [...] 11/05/2024 2:30 PM EDT Office Visit [address] [address] Hallie Tapia MD [address] [place] [address] 11/12/2024 9:30 AM EDT Clinical Support [address] [address] Azeb Hall RN 505 [place] [address] 01/11/2025 1:00 PM EST Office Visit [address] [address] Sariah Vickers ANP [address] [place] [address] 02/03/2025 11:00 AM EST Medication Management [address] [address] Yuri Pierre, PharmBear [address] [place] [address] documented as of this encounter Visit Diagnoses Not on filedocumented in this encounter Care Teams Principal Consulting Engineer Relationship Specialty Start Date End Date Sariah Vickers ANP [address] [place] [address] PCP - General Family Medicine 09/23/19 Yuri Pierre, PharmD [address] [place] [address] Pharmacist Internal Medicine 05/05/24 Basilio Hall MD 596 [place] [address] Cardiology 05/17/24 Ron Precidao MD [address] [place], [place] [address] Pulmonary Disease 05/17/24 documented as of this encounter
--- OUTSIDE RECORDS SUMMARY | 2024-10-25 10:11 | XMS_ITS | Encounter Summary ---
Author Organization [employer] Address 75 [facility] 7t [place] [address] Care Team Providers Care Medical Office Clerk Name Role Phone Sariah Vickers Primary Care Provider [phone] Yuri Pierre PharmD Unavailable [phone] Basilio Hlal MD Unavailable [phone] Ron Preciado MD Unavailable [phone] Reason for Visit * Reason Onset Date Comments Nurse Triage 12/24/2022 Encounter Details Date Type Department Care Team (Late st Contact Info) Description 12/24/2022 Telephone [facility] MEDICINE 230 [place] [address] Sariah Vickers ANP 230 [place] [address] Nurse Triage Social History Tobacco Use Types [...] 10:16 AM EDT Sexual Orientation Lesbian or Strogn 12/17/2021 10 :16 AM EDT documented as of this encounter Miscellaneous Notes * Telephone Encounter - Natacha Matson RN - 12/24/2022 1:11 PM EST Called pt.via [employer] director of instruction [phone] Benjamin. Pt. States that she wants to [...] regimen and possible referral to a new [facility] due to pt. Not having jeremie in [...] accepted this outcome Please contact pt at [phone] documented in this encounter Plan of Treatment Upcoming Encounters Date Type Department Care Team (Late st Contact Info) Description 11/05/2024 2:30 PM EDT Office Visit [address] [address] Hallie Tapia MD [address] [place] [address] 11/12/2024 9:30 AM EDT Clinical Support [address] [address] Azeb Hall, MARTIN 505 [place] [address] 01/11/2025 1:00 PM EST Office Visit [address] [address] Sariah Vickers ANP [address] [place] [address] 02/03/2025 11:00 AM EST Medication Management [address] [phone] Yuri Pierre PharmD [address] [place] [address] documented as of this encounter Goals Goal [...] filedocumented in this encounter Care Teams Medical Office Clerk Relationship Specialty Start Date End Date Sariah Vickers ANP [address] [place] [address] PCP - General Family Medicine 09/23/19 Yuri Pierre, Dileep [address] [place] [address] Pharmacist Internal Medicine 05/05/24 Basilio Hall MD 596 [place] [address] Cardiology 05/17/24 Ron Preciado MD [address] [place] [address] Pulmonary Disease 05/17/24 documented as of this encounter
--- OUTSIDE RECORDS SUMMARY | 2024-10-25 10:11 | XMS_ITS | Encounter Summary ---
Author Organization [employer] Address 75 [facility] 7t [place] [address] Care Team Providers Care Supervisor Water Softener Service Name Role Phone Sariah Vickers KAYLEE Primary Care Provider [phone] Yuri Pierre PharmD Unavailable [phone] Basilio Hall MD Unavailable [phone] Ron Preciado MD Unavailable [phone] Reason for Visit * Reason Comments Med Refill Encounter Details Date Type Department Care Team (Late st Contact Info) Description 10/04/2024 Refill [facility] [address] [place] [address] Zakia Uriostegui, HONING MACHINE OPERATOR SEMIAUTOMATIC 230 [place] [address] Type 2 diabetes mellitus with hyperglycemia (CMS/HCC) [...] Description 11/05/2024 2:30 PM EDT Office Visit [address] [address] Hallie Tapia MD [address] [place] [address] 11/12/2024 9:30 AM EDT Clinical Support [address] [address] Azeb Hall, MARTIN 505 [place] [address] 01/11/2025 1:00 PM EST Office Visit [address] [address] Sariah Vickers ANP [address] [place] [address] 02/03/2025 11:00 AM EST Medication Management [address] [address] Yuri Pierre, PharmD 230 [place] [address] documented as of this encounter Goals Goal [...] as of this encounter Care Teams Supervisor Water Softener Service Relationship Specialty Start Date End Date Sariah Vickers ANP 230 [place] [address] PCP - General Family Medicine 09/23/19 Yuri Pierre, PharmD [address] [place] [address] Pharmacist Internal Medicine 05/05/24 Basilio Hall MD 596 [place] [address] Cardiology 05/17/24 Ron Preciado MD [address] [place] [address] Pulmonary Disease 05/17/24 documented as of this encounter
--- OUTSIDE RECORDS SUMMARY | 2024-10-25 10:11 | XMS_ITS | Encounter Summary ---
Author Organization [employer] Address 75 [facility] 7t [place] [address] Care Team Providers Care Firewall Engineer Name Role Phone Sariah Vickers Primary Care Provider [phone] Yuri Pierre PharmD Unavailable [phone] Basilio Hall MD Unavailable [phone] Ron Preciado MD Unavailable [phone] Reason for Visit * Reason Comments Med Refill Encounter Details Date Type Department Care Team (Late st Contact Info) Description 12/27/2022 Refill [facility] MEDICINE 230 [place] [address] Sariah Vickers ANP 230 [place] [address] Neck pain Social History Tobacco Use Types [...] your housing situation today? I have rodrigo knet 12/04/[address] you li [...] 11/05/2024 2:30 PM EDT Office Visit [address] [address] Hallie Tapia MD [address] [place] [address] 11/12/2024 9:30 AM EDT Clinical Support [address] [address] Azeb Hall, RN 505 [place] [address] 01/11/2025 1:00 PM EST Office Visit [address] [address] Sariah Vickers ANP [address] [place] [address] 02/03/2025 11:00 AM EST Medication Management [address] [address] Yuri Pierre, PharmD [address] [place] [address] documented as of this encounter Goals Goal [...] Cervicalgia documented in this encounter Care Teams Firewall Engineer Relationship Specialty Start Date End Date Sariah Vickers ANP 230 [place] [address] PCP - General Family Medicine 09/23/19 Yuri Pierre, MikeD 230 [place] [address] Pharmacist Internal Medicine 05/05/24 Basilio Hall MD 596 [place] [address] Cardiology 05/17/24 Ron Preciado MD [address] [place] [address] Pulmonary Disease 05/17/24 documented as of this encounter
--- OUTSIDE RECORDS SUMMARY | 2024-10-25 10:11 | XMS_ITS | Encounter Summary ---
Author Organization [employer] Address 75 [facility] 7t [place] [address] Care Team Providers Care Production Line Mechanic Name Role Phone Sariah Vickers Primary Care Provider [phone] Yuri Pierre PharmD Unavailable [phone] Basilio Hall MD Unavailable [phone] Ron Preciado MD Unavailable [phone] Reason for Visit * Reason Onset Date Comments Appointment Request 09/03/2024 Encounter Details Date Type Department Care Team (Late st Contact Info) Description 09/03/2024 Telephone [facility] MEDICINE 230 [place] [address] Sariah Vickers ANP 230 [place], [place] [phone] Appointment Request Social History Tobacco Use Types [...] when making the apt. Contact pt at [phone] documented in this encounter Plan of Treatment Upcoming Encounters Date Type Department Care Team ([facility] st Contact Info) Description 11/05/2024 2:30 PM EDT Office Visit [facility] MED[facility]INE [address] [place] [address] Hallie Tapia MD [address] [place] [address] 11/12/2024 9:30 AM EDT Clinical Support [facility] [address] [place] [address] Azeb Hall RN 505 [place] [address] 01/11/2025 1:00 PM EST Office Visit [address] [address] Sariah Vickers ANP [address] [place] [address] 02/03/2025 11:00 AM EST Medication Management [address] [address] Yuri Pierre, PharmBear [address] [place] [address] documented as of this encounter Goals Goal [...] as of this encounter Care Teams Production Line Mechanic Relationship Specialty Start Date End Date Sariah Vickers ANP [address] [place] [address] PCP - General Family Medicine 09/23/19 Yuri Pierre, PharmD [address] [place] [address] Pharmacist Internal Medicine 05/05/24 Basilio Hall MD [address] [place] [address] Cardiology 05/17/24 Ron Preciado MD [address] [place] [address] Pulmonary Disease 05/17/24 documented as of this encounter
--- OUTSIDE RECORDS SUMMARY | 2024-10-25 10:11 | XMS_ITS | Encounter Summary ---
Author Organization [employer] Address [address] [facility] 7t [place] [address] Care Team Providers Care Mechanical Manager Name Role Phone Sariah Vickers Primary Care Provider [phone] Yuri Pierre PharmD Unavailable [phone] Basilio Hall MD Unavailable [phone] Ron Preciado MD Unavailable [phone] Reason for Visit * Reason Onset Date Comments Med Refill 03/04/2023 Encounter Details Date Type Department Care Team (Late st Contact Info) Description 03/04/2023 Telephone [facility] [address] [place], [place] [phone] Sariah Vickers ANP [address] [place], [place] [phone] Med Refill Social History Tobacco Use Types [...] 50 MG tablet To be sent to: [facility] - [place], [place] - [address] [place] [address] documented in this encounter Plan of Treatment Upcoming Encounters Date Type Department Care Team ([facility] st Contact Info) Description 11/05/2024 2:30 PM EDT Office Visit [address] [address] Hallie Tapia MD [address] [place] [address] 11/12/2024 9:30 AM EDT Clinical Support [address] [address] Azeb Hall RN 505 [place] [address] 01/11/2025 1:00 PM EST Office Visit [address] [address] Sariah Vickers, ANP [address] [place] [address] 02/03/2025 11:00 AM EST Medication Management [facility] [address] [place] [address] Yuri Pierre, PharmD [address] [place] [address] documented as of this encounter Goals Goal [...] on filedocumented in this encounter Care Teams Mechanical Manager Relationship Specialty Start Date End Date Sariah Vickers ANP [address] [place] [address] PCP - General Family Medicine 09/23/19 Yuri Pierre, PharmD [address] [place] [address] Pharmacist Internal Medicine 05/05/24 Basilio Hall MD [address] [place] [address] Cardiology 05/17/24 Ron Preciado MD [address] [place] [address] Pulmonary Disease 05/17/24 documented as of this encounter
--- OUTSIDE RECORDS SUMMARY | 2024-10-25 10:11 | XMS_ITS | Clinical Summary ---
Author Organization [address] [facility] Address [address] [place] [address] Phone Care Team Providers Care Shank Sorter Name Role Phone Sariah Vickers NP Primary Care Provider [phone] Social History Tobacco Use Types Packs/Day Years [...] age to complete this topic Care Teams Shank Sorter Relationship Specialty Start Date End Date Sariah Vickers NP [address] [place] [phone] PCP - General 12/03/23
--- OUTSIDE RECORDS SUMMARY | 2024-10-25 10:11 | XMS_ITS | Encounter Summary ---
Author Organization [employer] Address [address] [facility] 7t [place] [address] Care Team Providers Care Wireless Team Member Name Role Phone Sariah Vickers Primary Care Provider [phone] Yuri Pierre PharmD Unavailable [phone] Basilio Hall MD Unavailable [phone] Ron Preciado MD Unavailable [phone] Reason for Visit * Reason Onset Date Comments Nurse Triage 01/14/2023 Encounter Details Date Type Department Care Team (Late st Contact Info) Description 01/14/2023 Telephone [facility] 230 [place] [address] Sariah Vickers ANP 230 [place] [address] Nurse Triage Social History Tobacco Use Types [...] 01/14/2023 9:26 AM EST Called pt. Via [employer] seo associate [phone] Kelly. Pt. States that she has been having a fire feeling in her legs. Its like A burning that goes down her legs . Pt. Unsure if it because of her Diabetes. Pt. Went to [facility] [place] [place] for pain on her left side [...] at 10am. Will send note to clinical manager medicare to have note put in chart . [...] Severe pain now, pt was seen at [facility] [place] [place] on 01/13 for pain in leg. Pt is still symptomatic The caller accepted this outcome Please contact pt at [phone] (factory lay out engineer needed) documented in this encounter Plan of Treatment Upcoming Encounters Date Type Department Care Team (Late st Contact Info) Description 11/05/2024 2:30 PM EDT Office Visit [address] [address] Hallie Tapia MD [address] [place] [address] 11/12/2024 9:30 AM EDT Clinical Support [address] [address] Azeb Hall RN 505 [place] [address] 01/11/2025 1:00 PM EST Office Visit [address] [address] Sariah Vickers ANP [address] [place] [address] 02/03/2025 11:00 AM EST Medication Management [address] [address] Yuri Pierre, MikeD [address] [place] [address] documented as of this encounter Goals Goal [...] on filedocumented in this encounter Care Teams Wireless Team Member Relationship Specialty Start Date End Date Sariah Vickers ANP 230 [place] [address] PCP - General Family Medicine 09/23/19 Yuri Pierre, MikeD [address] [place] [address] Pharmacist Internal Medicine 05/05/24 Basilio Hall MD [address] [place] [address] Cardiology 05/17/24 Ron Preciado MD [address] [place] [address] Pulmonary Disease 05/17/24 documented as of this encounter
--- OUTSIDE RECORDS SUMMARY | 2024-10-25 10:11 | XMS_ITS | Encounter Summary ---
Author Organization [employer] Address [address] [facility] 7t [place] [address] Care Team Providers Care Check And Transfer Beader Name Role Phone Sariah Vickers KAYLEE Primary Care Provider [phone] Yuri Pierre PharmD Unavailable [phone] Basilio Hall MD Unavailable [phone] Ron Preciado MD Unavailable [phone] Reason for Visit * Reason Comments Med Refill Encounter Details Date Type Department Care Team (Late st Contact Info) Description 03/04/2023 Refill [facility] 230 [place] [address] Brittney Nava MD 230 [place] [address] Social History Tobacco Use Types Packs/Day Years [...] Description 11/05/2024 2:30 PM EDT Office Visit [address] [address] Hallie Tapia MD [address] [place] [address] 11/12/2024 9:30 AM EDT Clinical Support [address] [address] Azeb Hall, RN 505 [place] [address] 01/11/2025 1:00 PM EST Office Visit [address] [address] Sariah Vickers, KAYLEE [address] [place] [address] 02/03/2025 11:00 AM EST Medication Management [address] [address] Yuri Pierre, PharmD [address] [place] [address] documented as of this encounter Goals Goal [...] on filedocumented in this encounter Care Teams Check And Transfer Beader Relationship Specialty Start Date End Date Sariah Vickers ANP 230 [place] [address] PCP - General Family Medicine 09/23/19 Yuri Pierre, PharmD [address] [place] [address] Pharmacist Internal Medicine 05/05/24 Basilio Hall MD [address] [place] [address] Cardiology 05/17/24 Ron Preciado MD [address] [place] [address] Pulmonary Disease 05/17/24 documented as of this encounter
--- OUTSIDE RECORDS SUMMARY | 2024-10-25 10:11 | XMS_ITS | Encounter Summary ---
Author Organization [employer] Address [address] [facility] 7t [place] [address] Care Team Providers Care Payment Processor Name Role Phone Sariah Vickers Primary Care Provider [phone] Yuri Pierre PharmD Unavailable [phone] Basilio Hall MD Unavailable [phone] Ron Preciado MD Unavailable [phone] Reason for Visit * Reason Comments Med Refill Encounter Details Date Type Department Care Team (Late st Contact Info) Description 08/14/[address] [facility] [address] [place] [address] Sariah Vickers ANP 230 [place] [address] Severe persistent asthma without complication Social History [...] Description 11/05/2024 2:30 PM EDT Office Visit [address] [address] Hallie Tapia MD [address] [place] [address] 11/12/2024 9:30 AM EDT Clinical Support [address] [address] Azeb Hall RN 505 [place] [address] 01/11/2025 1:00 PM EST Office Visit [address] [address] Sariah Vickers ANP [address] [place] [address] 02/03/2025 11:00 AM EST Medication Management [address] [address] Yuri Pierre, Dileep [address] [place] [address] documented as of this encounter Visit Diagnoses Diagnosis Severe persistent asthma without complication documented in this encounter Care Teams Payment Processor Relationship Specialty Start Date End Date Sariah Vickers ANP [address] [place] [address] PCP - General Family Medicine 09/23/19 Yuri Pierre, PharmD [address] [place] [address] Pharmacist Internal Medicine 05/05/24 Basilio Hall MD [address] [place] [address] Cardiology 05/17/24 Ron Preciado MD [address] [place] [address] Pulmonary Disease 05/17/24 documented as of this encounter
--- OUTSIDE RECORDS SUMMARY | 2024-10-25 10:11 | XMS_ITS | Encounter Summary ---
Author Organization [employer] Address [address] [facility] 7t [place] [address] Care Team Providers Care Gas Mask Assembler Name Role Phone Sariah Vickers Primary Care Provider [phone] Yuri Pierre PharmD Unavailable [phone] Basilio Hall MD Unavailable [phone] Ron Preciado MD Unavailable [phone] Reason for Visit * Reason Comments Med Refill Encounter Details Date Type Department Care Team (Late st Contact Info) Description 05/21/2023 Refill [facility] [address] [place] [address] Sariah Vickers ANP [address] [place] [address] Neck pain Social History Tobacco Use Types [...] Description 11/05/2024 2:30 PM EDT Office Visit [address] [address] Hallie Tapia MD [address] [place] [address] 11/12/2024 9:30 AM EDT Clinical Support [address] [address] Azeb Hall RN [address] [place] [address] 01/11/2025 1:00 PM EST Office Visit [address] [address] Sariah Vickers ANP [address] [place] [address] 02/03/2025 11:00 AM EST Medication Management [place] [address] [place] [address] Yuri Pierre, PharmD 230 [place] [address] documented as of this encounter Goals Goal [...] Cervicalgia documented in this encounter Care Teams Gas Mask Assembler Relationship Specialty Start Date End Date Sariah Vickers ANP 230 [place] [address] PCP - General Family Medicine 09/23/19 Yuri Pierre, PharmD 230 [place] [address] Pharmacist Internal Medicine 05/05/24 Basilio Hall MD [address] [place] [address] Cardiology 05/17/24 Ron Preciado MD [address] [place] [address] Pulmonary Disease 05/17/24 documented as of this encounter
--- OUTSIDE RECORDS SUMMARY | 2024-10-25 10:11 | XMS_ITS | Encounter Summary ---
Author Organization [employer] Address 75 [facility] 7t [place] [address] Care Team Providers Care Steel Plate Printer Name Role Phone Sariah Vickers Primary Care Provider [phone] Yuri Pierre PharmD Unavailable [phone] Basilio Hall MD Unavailable [phone] Ron Preciado MD Unavailable [phone] Reason for Visit * Reason Onset Date Comments Referral 05/17/2022 Encounter Details Date Type Department Care Team (Late st Contact Info) Description 05/17/2022 Telephone [facility] 230 [place] [address] Sariah Vickers ANP 230 [place], [place] [phone] Referral Social History Tobacco Use Types Packs/Day [...] guide to vertigo. Please contact pt at [phone] documented in this encounter Plan of Treatment Upcoming Encounters Date Type Department Care Team (Late st Contact Info) Description 11/05/2024 2:30 PM EDT Office Visit [address] [address] Hallie Tapia MD [address] [place] [address] 11/12/2024 9:30 AM EDT Clinical Support [address] [address] Azeb Hall RN 505 [place] [address] 01/11/2025 1:00 PM EST Office Visit [address] [address] Sariah Vickers ANP [address] [place] [address] 02/03/2025 11:00 AM EST Medication Management [address] [address] uYri Pierre, Dileep [address] [place] [address] documented as of this encounter Visit Diagnoses Not on filedocumented in this encounter Care Teams Steel Plate Printer Relationship Specialty Start Date End Date Sariah Vickers ANP [address] [place] [address] PCP - General Family Medicine 09/23/19 Yuri Pierre, PharmD 230 [place] [address] Pharmacist Internal Medicine 05/05/24 Basilio Hall MD 5[address] [place] [address] Cardiology 05/17/24 Ron Preciado MD [address] [place] [address] Pulmonary Disease 05/17/24 documented as of this encounter
--- OUTSIDE RECORDS SUMMARY | 2024-10-25 10:11 | XMS_ITS | Clinical Summary ---
Author Organization [employer] Address [address] [place] [address] Care Team Providers Care Global Professional Name Role Phone Anthony Ruiz KAYLEE Primary Care Provider [phone] Yuri Pierre PharmD Unavailable [phone] Basilio Hall MD Unavailable [phone] Ron Preciado MD Unavailable [phone] Allergies Active Allergy Reactions Criticality Noted [...] mouth in the morning. Active Lactobacillus-In ulin ([facility] Last [facility]) capsule 023 Active Xolair 150 MG/ML [...] Type 2 diabetes mellitus with hyperlipidemia (CMS/HCC) ([facility]) USE DIRECTED THREE TIMES [...] 90 tablet 4 025 Active Continuous Glucose [employer] (FreeStyle Jalil 3 [place]) device 1 each Once per day. Use [...] cations:Type 2 diabetes mellitus with hyperlipidemia (CMS/HCC) ([facility]) Inject 0.5 mg under the skin 1 (one) time per week. 1 each 025 Active insulin lispro (HumaLOG KWIKPEN) 100 UNIT/ML injectionIndicat ions:Type 2 diabetes mellitus with hyperlipidemia (CMS/HCC) ([facility]) Take 4-6 units as needed if BG [...] neuropathy, with long-term current use of insulin ([facility]) Administer 3 mg into affected nostril(s) 1 [...] miscIndications: Type 2 diabetes mellitus with hyperglycemia ([facility]) TEST BLOOD SUGAR FOUR TIMES DAILY 200 [...] She is currently connected with services through [facility]. Pt needing additional support due to her [...] her family. She will continue services with [facility] for OP therapy and psychiatry services. clinician will be available if needed during next medical appointment. PLAN: (check all that apply) Continue with current services (defined as services in the past 12 months) . Pt is engaged with OP therapy and psychiatry services with [facility] @ [facility] Excessive attrition of teeth, generalized 2023 Right [...] her family. She will continue services with [facility] for OP therapy and psychiatry services. clinician will be available if needed during next medical appointment. PLAN: (check all that apply) Continue with current services (defined as services in the past 12 months) . Pt is engaged with OP therapy and psychiatry services with [facility] @ [facility] Fibromyalgia 07/31/2022 Asthma-COPD overlap syndrome 07/31/2022 Right [...] for possible plantar fasciitis -referred today to tub tender x ongoing discomfort -may need orthopedic [...] individual therapy and psychiatry with N at [facility]. Sees psych provider every two months and therapist bi-weekly. Pt will reach out to clinician as needed. Assessment & Plan (04/10/2023 11:08 AM EST): PLAN: (check all that apply) Behavioral Health Integration Plan Patient Self Plan Patient to reach out to [facility] team as needed Assessment & Plan [...] healthy manner PLAN: 1. Follow up with [facility]: Not recommended for follow-up 2. Patient goal is: reduce anxiousness 3. Behavioral Recommendations a. Patient will comply with medication b. Patient may request to speak with a [facility] during next PCP visit, if needed Chronic [...] organization. Date Type Department Care Team Description 10/25/2024 Refill [facility] [address] [place] [address] Anthony Ruiz ANP 10/23/2024 Refill [facility] [address] [place] [address] Anthony Ruiz ANP 10/20/2024 Results Follow-Up [facility] [address] [place] [address] Anthony Ruiz ANP Prothrombin Time-INR, C-reactive Protein, Amylase, Additional followed-up results: 7 10/19/2024 Refill [facility] PED[facility] [address] [place] [address] Anthony Ruiz ANP Cervicalgia 10/14/2024 1:30 PM EDT Office Visit [facility] [address] [place] [address] Anthony Ruiz ANP Type 2 diabetes mellitus with hyperlipidemia (CMS/HCC) (CMS/HCC) (Primary Dx); Chronic pain of both knees 10/14/2024 Travel 10/13/2024 10:40 AM EDT Office Visit [facility] [address] [place] [address] Chava Presley MD Essential hypertension (Primary Dx) 10/13/2024 Travel 10/12/2024 Orders Only GENERIC EXTERNAL DATA DEPARTMENT Provider, Generic External Data 10/09/2024 Refill [facility] [address] [place] [address] Anthony Ruiz ANP Severe persistent asthma without complication 10/06/2024 Travel 10/04/2024 Refill [facility] [address] [place] [address] Zakia Uriostegui NP Type 2 diabetes mellitus with hyperglycemia (CMS/HCC) 10/01/2024 11:00 AM EDT Clinical Support [facility] [address] [place] [address] Azeb Hall, RN Neck pain 10/01/2024 Telephone [facility] [address] [place] [address] Azeb Hall, RN 10/01/2024 Travel 09/30/2024 Telephone [facility] [address] [place] [phone] Anthony Ruiz ANP Referral 09/30/2024 Telephone [facility] [address] [place] [address] Anthony Ruiz ANP Referral 09/30/2024 Refill [facility] [address] [place] [address] Anthony Ruiz ANP Chronic SI joint pain 09/28/2024 Orders Only [facility] [address] [place] [phone] Anthony Ruiz ANP 09/25/2024 Refill [facility] [address] [place] [address] Anthony Ruiz ANP Chronic SI joint pain; Essential hypertension; Severe persistent asthma without complication 09/24/2024 2:00 PM EDT Office Visit [facility] OPTOMETRY [address] [place] [address] Juan, Luisa, OD Diabetes type 2, no ocular involvement (CMS/HCC) (Primary Dx); Mixed type age-related cataract, both eyes; Lesion of left lower eyelid; Presbyopia 09/24/2024 Travel 09/19/2024 Refill [facility] [address] [place] [address] Debra Faye MD Cervicalgia 09/16/2024 Refill [facility] [address] [place] [address] Zakia Uriostegui NP Type 2 diabetes mellitus with hyperglycemia (CMS/[facility]); Neck pain 09/03/2024 Telephone [facility] [address] [place] [phone] Anthony Ruiz ANP Appointment Request 09/02/2024 Telephone [facility] [address] [place] [phone] Anthony Ruiz ANP Durable Medical Equipment 08/26/2024 Telephone [facility] [address] [place] [phone] Anthony Ruiz ANP Durable Medical Equipment 08/23/2024 Refill [facility] [address] [place] [address] Anthony Ruiz ANP Type 2 diabetes mellitus with hyperglycemia (CMS/HCC) 08/21/2024 Refill [facility] [address] [place] [address] Anthony Ruiz ANP Cervicalgia; Chronic bilateral low back pain, unspecified whether sciatica present 08/20/2024 Refill [facility] [address] [place] [phone] Anthony Ruiz ANP Chronic bilateral low back pain, unspecified whether sciatica present 08/19/2024 9:00 AM EDT Office Visit [facility] [address] [place] [phone] Ramon Damon MD Viral URI with cough 08/16/2024 Refill [facility] [address] [place] [phone] Debra Faye MD Neck pain 08/13/2024 Orders Only [facility] [address] [place] [phone] Leora Hoffman RN 08/11/2024 4:00 PM EDT Office Visit [facility] WALKIN [address] [address] Brittney Nava MD Constipation, unspecified constipation type (Primary Dx) 08/11/2024 Travel 08/10/[address] [address] Anthony Ruiz ANP Prior Authorization 08/04/2024 1:00 PM EDT Office Visit [facility] ADULT DENTAL [address] [place] [phone] Nuvia Duarte Dental plaque (Primary Dx); Gingival recession, generalized; Missing teeth, acquired; Excessive attrition of teeth, generalized 08/04/2024 Travel 08/02/[address] [address] Anthony Ruiz ANP Referral 07/31/2024 Refill [facility] [address] [address] Antohny Ruiz ANP Essential hypertension 07/29/[address] [address] Anthony Ruiz ANP Med Refill 07/28/[address] [address] Anthony Ruiz ANP ranjeet recall 07/28/2024 Refill [facility] [address] [place] [address] Anthony Ruiz ANP Neck pain 07/27/2024 Orders Only GENERIC EXTERNAL DATA DEPARTMENT Provider, Generic External Data from Last 3 Months Immunizations Immunization Administration [...] 2:30 PM EDT Office Visit [facility] [address] [place] [phone] Hallie Tapia MD [address] [place] [address] 11/12/2024 9:30 AM EDT Clinical Support [facility] [address] [place] [phone] Azeb Hall RN [address] [place] [address] 01/11/2025 1:00 PM EST Office Visit [facility] [address] [place] [phone] Anthony Ruiz, ANP [address] [place] [address] 02/03/2025 11:00 AM EST Medication Management [facility] [address] [place] [phone] Yuri Pierre, PharmD [address] [place] [address] Health Maintenance Due Date Last Done Comments [...] 09/12/2026 09/12/2023, 09/18 Eye Exam 09/24/2026 09/24/2024, 08/0 09/2024, 09/24/2024, [...] EDT Type 2 diabetes mellitus with hyperlipidemia ([facility]/HCC) ([facility]) POCT GLUCOSE Routine 10/14/2024 1:52 PM EDT Type 2 diabetes mellitus with hyperlipidemia ([facility]/HCC) ([facility]) REX SCREEN, IFA, W/REFL TITER AND PATTERN [...] 2 VIEWS Routine 07/27/2024 1:01 PM EDT LIPID PANEL, STANDARD Routine 06/18/2024 [...] Media Lot # [id number] Lot# Expiration Date Blood 10/14/2024 1:54 PM EDT us Anthony Ruiz ANP POINT OF CARE TEST ENTER/EDIT OR DERABLES Final Result * POCT Glucose (10/14/2024 1:52 PM EDT) Pathologist [facility] Glucose Blood, POC 121 60 - 200 mg/dL QC Media Lot # [id number] Lot# Expiration Date Blood Capillary blood specimen / Unknown 10/14/2024 1:52 PM EDT us Anthony Ruiz ANP POINT OF CARE TEST ENTER/EDIT OR DERABLES Final Result * (ABNORMAL) TSH with Reflex to Free T4 (10/12/2024 2:10 PM EDT) Pathologist [facility] TSH reflex Free T4 6.80(H) 0.32 - 4.0 uIU/mL [facility] 10/12/2024 2:10 PM EDT 10/12/2024 2:10 PM EDT Generic External Data Provider LAB BLOOD ORDERAB LES Final Result Performing Organization Address City/State/[facility] Co de Phone Number [facility] [address] [place] [address] [phone] * (ABNORMAL) Actin (Smooth Muscle) Antibody (IgG) (10/12/2024 2:10 PM EDT) Pathologist [facility] Smooth Muscle Antibody 51(A) <20 U [facility] Comment:Reference Range: <20 U: Negative>or=20 [...] with AIH type 1.THIS TEST WAS PERFORMED AT:[employer]/[facility] [place] [address]LOGHYUGDEAN CASAS MD,PHD 10/12/2024 2:10 PM EDT 10/12/2024 2:10 PM EDT Generic External Data Provider LAB BLOOD ORDERAB LES Final Result Performing Organization Address [facility] Co de Phone Number [facility] [address] [place] [phone] * Prothrombin Time-INR (10/12/2024 2:10 PM EDT) Prothrombin Time 10.9 10.9 - 12.4 SEC [facility] INTERNATIONAL NORM RATIO 1.0 0.9 - 1.1 [facility] Comment:INTERNATIONAL NORMAL IZED RATIO (INR) [...] 2:10 PM EDT 10/12/2024 2:10 PM EDT [employer] External Data Provider LAB BLOOD ORDERAB LES Final Result Performing Organization Address [facility] Co de Phone Number [facility] [address] [place] [phone] * C-reactive Protein (10/12/2024 2:10 PM EDT) C Reactive Protein 0.31 < or = 0.50 mg/dL [facility] 10/12/2024 2:10 PM EDT 10/12/2024 2:10 PM EDT us Generic External Data Provider LAB BLOOD ORDERAB LES Final Result [facility] [address] [place] [address] [phone] * (ABNORMAL) REX Screen,IFA, with Reflex to Titer and Pattern (10/12/2024 2:10 PM EDT) Anti Nuclear Antibody Screen POSITIV E(A) NEGATIVE [facility] Comment:ERX IFA is a first l ine screen for detecting thepresence of up to approximately 150 autoantibodies invarious autoimmune diseases. A positive REX IFA resultis suggestive of autoimmune disease and reflexes totiter and pattern. Further laboratory testing may beconsidered if clinically indicated.For additional information, please refer tohttp://education.Yieldbot/faq/AWA978(This link is being provided for informational/educational purposes only.)THIS TEST WAS PERFORMED AT:[employer] [place] [phone] WARREN MD REX Titer 1:1280( A) titer [facility] Comment:Reference Range <1: 40 Negative 1:40-1:80 Low Antibody Level >1:80 Elevated Antibody Level REX Pattern Nuclear , Homogen eous(A) [facility] Comment:Homogeneous pattern is associated with systemic lupuserythematosus (SLE), drug-induced lupus and juvenileidiopathic arthritis.AC-1: HomogeneousInternational Consensus on REX Patterns(https://doi.org/10.1515/cpcz-1898-2449)THIS TEST WAS PERFORMED AT:[employer] [place] [address]HERNAN WARREN MD REX TITER 2 (REF LAB) [facility] REX Pattern 2 [facility] REX TITER 3 [facility] REX PATTERN 3 [facility] 10/12/2024 2:10 PM EDT 10/12/2024 2:10 PM EDT Generic External Data Provider LAB BLOOD ORDERAB LES Final Result Performing Organization Address [facility] Co de Phone Number [facility] [address] [place] [phone] * T4, Free (10/12/2024 2:10 PM EDT) Free T4 (Free Thyroxine) 0.99 0.71 - 1.85 ng/dL [facility] 10/12/2024 2:10 PM EDT 10/12/2024 2:10 PM EDT Generic External Data Provider LAB BLOOD ORDERAB LES Final Result Performing Organization Address [facility] de Phone Number [facility] [address] [place] [phone] * Lipase (10/12/2024 2:10 PM EDT) Lipase 20 8 - 78 U/L [facility] 10/12/2024 2:10 PM EDT 10/12/2024 2:10 PM EDT Generic External Data Provider LAB BLOOD ORDERAB LES Final Result Performing Organization Address [facility] Phone Number [facility] [address] [place] [phone] * (ABNORMAL) Hemoglobin A1c (10/12/2024 2:10 PM EDT) Hemoglobin A1c 6.5(H) <6.0 % [facility] Comment:Hemoglobin A1C Refer ence Range Adults: 4.8 - 6.0 % Non diabetic: < 6.0 % Goal: < 7.0 %Additional Action Suggested: > 8.0 %Note: Hemoglobin A1c results are invalid for patients with abnormal amounts of HbF. Blood transfusions may impact the HbA1c concentration in the patient sample. Estimated Average Glucose 140 mg/dL [facility] Comment:eAG = Estimated ave rage glucose which is %A1C expressed asaverage glucose, using the formula of the Q1E-BmuprjkRagszfp Glucose study (ADAG), Diabetes Care, Vol.31,#8,Sep. 2007 10/12/2024 2:10 PM EDT 10/12/2024 2:10 PM EDT us Generic External Data Provider LAB BLOOD ORDERAB LES Final Result Performing Organization Address [facility] Co de Phone Number [facility] [address] [place] [phone] * Ferritin (10/12/2024 2:10 PM EDT) Ferritin 69 10 - 250 ng/mL [facility] 10/12/2024 2:10 PM EDT 10/12/2024 2:10 PM EDT us Generic External Data Provider LAB BLOOD ORDERAB LES Final Result Performing Organization Address [facility] Co de Phone Number [facility] [address] [place] [phone] * Amylase (10/12/2024 2:10 PM EDT) Amylase 36 28 - 100 U/L [facility] 10/12/2024 2:10 PM EDT 10/12/2024 2:10 PM EDT Generic External Data Provider LAB BLOOD ORDERAB LES Final Result Performing Organization Address [facility] de Phone Number [facility] [address] [place] [phone] * CT Lung Screening Low dose (10/09/2024 1:18 PM EDT) Anatomical Region Laterality Modality Lung Computed Tomogra phy 10/09/2024 1:18 PM EDT Narrative 10/09/2024 1:20 PM EDT [place] [address] CT Scan Report Signed Patient: Nuvia Fay MR #: [id number] : 1960 Acct:[id number] Age/Sex: 64 / F ADM Date: 10/08/24 Loc: HO.CT Attending Dr: Ron Preciado MD Ordering Physician: Ron Preciado MD Date of Service: 10/08/24 Procedure(s): CT lung screening Accession Number(s): [id number] cc: Ron Preciado MD; ANTHONY RUIZ NP Report Number: [id number]: Total DLP = 64.00 mGy-cm CLINICAL HISTORY: [...] 10/09/24 1319 DD/ 1318 TD/TT: 10/09/24 1318 Salvage Engineering Technician: Procedure Note Donotuseinterpreter, Image - 10/09/[address] [address] [address] Scan Report Signed Patient: Nuvia Fay EMR #: [id number] : 1960cct:[id number] Age/Sex: 64 / FADM Date: 10/08/24 Loc: HO.CT Attending Dr: Ron Preciado MD Ordering Physician: Ron Preciado MD Date of Service: 10/08/24 Procedure(s): CT lung screening Accession Number(s): [id number] cc: Ron Preciado MD; ANTHONY RUIZ NP Report Number: [id number]: Total DLP = 64.00 mGy-cm CLINICAL HISTORY: [...] in OV> 10/09/24 1319 DD/ 1318 TD/TT: 10/09/241317 Salvage [employer] Technician: [facility] External Provider IMG CT PROCEDURES Edited Result [...] - 10/01/2024 10:43 AM EDT .UTOX cup Lot#[id number] Exp. 11/23/25 Internal Pass Control Anthony PAGE POINT OF CARE TEST ENTER/EDIT OR DERABLES Final Result * Influenza A (ID NOW Rapid Molecular) (08/19/2024 9:20 AM EDT) [facility] Influenza A Negative Negative, Indeterminate [facility] Swab 08/19/2024 9:20 AM EDT Ramon Damon MD POINT OF CARE TEST ENTER/EDIT OR DERABLES Final Result Performing Organization Address [facility]/ZIP Co de Phone Number [facility] [address] [place] [phone] * Influenza B (ID NOW Rapid Molecular) (08/19/2024 9:19 AM EDT) [facility] Influenza B Negative Negative, Indeterminate [facility] Swab 08/19/2024 9:19 AM EDT Ramon Damon MD POINT OF CARE TEST ENTER/EDIT OR DERABLES Final Result Performing Organization Address [facility] Co de Phone Number [facility] [address] [place] [phone] * POCT Rapid COVID Ag (08/19/2024 9:11 AM EDT) [facility] Rapid COVID Ag Negative Swab 08/19/2024 9:11 AM EDT Ramon Damon MD POINT OF CARE TEST ENTER/EDIT OR DERABLES Final Result * (ABNORMAL) Syphilis Antibodies (DPH) (08/06/2024) [facility] Syphilis Abs Reactive(A) Borderline, Nonreactive, Weakly Reactive, Inconclusive, Specimen unsatisfactory for evaluation Syphilis RPR Nonreactive Blood Venous blood specimen / Unknown 08/06/2024 [facility] Provider MD LAB BLOOD ORDERABLES Kelsey l Result * Hepatitis C Antibody ([facility]) (08/06/2024) Hepatitis C Ab Nonreactive Blood 08/06/2024 [facility] Provider MD LAB BLOOD ORDERABLES Kelsey l Result * HIV Ab/Ag ([facility]) (08/06/2024) HIV Ag/Ab Nonreactive Blood 08/06/2024 [facility] Provider MD LAB BLOOD ORDERABLES Kelsey l Result * Referral to Rheumatology (08/06/2024) 08/06/2024 Anthony Ruiz ANP OUTPATIENT REFERRAL ORDERABLES F inal Result * US RENAL BI (07/29/2024 12:57 PM EDT) Anatomical Region Laterality Modality Abdomen Ultrasound 07/29/2024 12:5 7 PM EDT Narrative 07/29/2024 12:58 PM EDT [place] [address] Ultrasound Report Signed Patient: Nuvia Fay MR #: [id number] : 1960 Acct:[id number] Age/Sex: 63 / F ADM Date: 07/29/24 Loc: .US Attending Dr: Umm Ellsworth ANP-C Ordering Physician: Rsoemary Moses Date of Service: 07/29/24 Procedure(s): US renal BI Accession Number(s): [id number] cc: Rosemary Moses; ANTHONY RUIZ NP CLINICAL [...] 07/29/24 1258 DD/ 1257 TD/TT: 07/29/24 1257 Salvage Engineering Technician: Procedure Note Donotuseinterpreter, Image - 07/29/[address] [address] Ultrasound Report Signed Patient: Nuvia Fay EMR #: [id number] : 1960cct:[id number] Age/Sex: 63 / FADM Date: 07/29/24 Loc: HO.US Attending Dr: Umm Ellsworth ANP-C Ordering Physician: Rosemary Moses Date of Service: 07/29/24 Procedure(s): US renal BI Accession Number(s): [id number] cc: Rosemary Moses; ANTHONY RUIZ NP CLINICAL [...] 07/29/24 1258 DD/ 1257 TD/TT: 07/29/24 1257 Salvage [employer] Technician: [facility] External Provider IMG US PROCEDURES Edited Result - Final * High Sensitivity Troponin I (07/27/2024 1:46 PM EDT) [facility] TROPONIN I HIGH SENSITIVITY <2.7 <3.5 - 17.0 ng/L [facility] Comment:[place] high sens itivity Troponin-I results should beused in conjunction with other diagnostic information suchas ECG, clinical observations and information, and patientsymptoms to aid in the diagnosis of PA. 07/27/2024 1:46 PM EDT 07/27/2024 1:58 PM EDT Generic External Data Provider LAB BLOOD ORDERAB LES Final Result [facility] [address] [place] [address] [phone] * (ABNORMAL) CBC auto differential (07/27/2024 1:46 PM EDT) [facility] White Blood Count 7.3 4.8 - 10.8 X10*3/uL [facility] Red Blood Count 4.60 4.20 - 5.50 X10*6/uL [facility] Hemoglobin 14.6 12.0 - 16.0 g/dl [facility] Hematocrit 43.5 37.0 - 47.0 % [facility] Mean Corpuscular Volume 94.6 80.0 - 98.0 fL [facility] Mean Corpuscular Hemoglobin 31.7 27.0 - 33.0 pg [facility] Mean Corpuscular HGB Conc 33.6 31.0 - 35.0 g/dl [facility] Red Cell Distribution Width 13.7 11.0 - 16.0 % [facility] Platelet Count 301 160 - 400 X10*3/uL [facility] Mean Platelet Volume 9.4 9.4 - 12.3 fL [facility] Neutrophils Percent Auto 44.2(L) 45 - 73 % [facility] Imm Gran Pct Auto 0.3 0.0 - 0.4 % [facility] Lymphocytes Percent Auto 45.7(H) 20 - 40 % [facility] Monocytes Percent Auto 5.5 2 - 11 % [facility] Eosinophils Percent Auto 3.6 0 - 4 % [facility] Basophils Percent Auto 0.7 0 - 2 % [facility] NRBC Pct Auto 0.0 0.0 - 0.2 /100WBC [facility] Neutrophils Absolute Auto 3.2 2.0 - 8.3 x10*3/uL [facility] Imm Gran Abs Auto 0.02 0.00 - 0.03 X10*3/uL [facility] Lymphocytes Absolute Auto 3.3 1.2 - 4.9 X10*3/uL [facility] Monocytes Absolute Auto 0.4 0.1 - 1.2 X10*3/uL [facility] Eosinophils Absolute Auto 0.3 0.0 - 0.4 X10*3/uL [facility] Basophils Absolute Auto 0.1 0.0 - 0.2 X10*3/uL [facility] NRBC Abs Auto 0.000 0.0 - 0.012 X10*3/uL [facility] 07/27/2024 1:46 PM EDT 07/27/2024 1:58 PM EDT us Generic External Data Provider LAB BLOOD ORDERAB LES Final Result [facility] [address] [place] [address] [phone] * (ABNORMAL) Basic Metabolic Panel (07/27/2024 1:46 PM EDT) Sodium 141 135 - 145 mmol/L [facility] Potassium 3.7 3.3 - 5.1 mmol/L [facility] Chloride 111(H) 96 - 108 mmol/L [facility] Carbon Dioxide 26 22 - 29 mmol/L [facility] Anion Gap 8(L) 12 - 20 [facility] Urea Nitrogen (BUN) 14 9 - 16 mg/dL [facility] Creatinine, Serum 0.94 0.5 - 1.4 mg/dL [facility] Creatinine Clr Calc Pharmacy TNP [facility] Comment:Unable to calculate eCrCL; all parameters not provided. Estimated Glomerular Filt Rate >60 [facility] Comment:Chronic Kidney Disea se: Estimated GFR < 60 mL/min/1.42o5Bgqxjm Kidney Disease: Estimated GFR < 15 mL/min/1.73m2 Glucose 161(H) 60 - 115 mg/dL [facility] Calcium 9.2 8.4 - 10.2 mg/dL [facility] 07/27/2024 1:46 PM EDT 07/27/2024 1:58 PM EDT us Generic External Data Provider LAB BLOOD ORDERAB LES Final Result [facility] [address] [place] [phone] [phone] * XR Chest 2 Views (07/27/2024 1:01 PM EDT) Anatomical Region Laterality Modality Chest Radiographic Griselda ging 07/27/2024 1:01 PM EDT Narrative 07/27/2024 2:08 PM EDT [address] [address] XRay Report Signed Patient: Nuvia Fay MR #: [id number] : 1960 Acct:[id number] Age/Sex: 63 / F ADM Date: 07/27/24 Loc: HO.ED Attending Dr: Ordering Physician: Musa ED Physician Date of Service: 07/27/24 Procedure(s): XR chest 2V Accession Number(s): [id number] cc: Generic ED Physician; ANTHONY RUIZ CALIBRATION TECHNICIAN EXAMINATION: XR CHEST 2 VIEWS HISTORY: CP [...] 07/27/24 1405 DD/ 1301 TD/TT: 07/27/24 1401 Salvage Engineering Technician: Procedure Note Donotuseinterpreter, Image - 07/27/[address] [address] XRay Report Signed Patient: Nuvia Fay EMR #: [id number] : 1960cct:[id number] Age/Sex: 63 / FADM Date: 07/27/24 Loc: HO.ED Attending Dr: Ordering Physician: Musa ED Physician Date of Service: 07/27/24 Procedure(s): XR chest 2V Accession Number(s): [id number] cc: Generic ED Physician; ANTHONY RUIZ CALIBRATION TECHNICIAN EXAMINATION: XR CHEST 2 VIEWS HISTORY: CP [...] 07/27/24 1405 DD/ 1301 TD/TT: 07/27/24 1401 Salvage Engineering Technician: [facility] External Provider IMG XR PROCEDURES Final Result * (ABNORMAL) Lipid Panel, Standard (06/18/2024 10:18 AM EDT) Triglycerides 122 <150 mg/dL [facility] Comment:Desirable Triglyceri de: less than 150 mg/dLBorderline High Triglyceride 150-199 mg/dLHigh Triglyceride: 200-499 mg/dLVery High Triglyceride: greater than or equal to 5OO mg/dL Cholesterol 216(H) <200 mg/dL [facility] Comment:Desirable Cholestero l: less than 200 mg/dLBorderline High Cholesterol: 200-239 mg/dLHigh Cholesterol: greater than 239 mg/dL LDL Cholesterol Calculated 128(H) <100 mg/dL [facility] Comment:Desirable LDL: less than 100 mg/dLNear Optimal/Above Optimal LDL: 110- 129 mg/dLBorderline High LDL: 130-159 mg/dLHigh LDL: 160-189 mg/dLVery High LDL: greater than or equal to 190 mg/dL HDL Cholesterol 64 >40 mg/dL [facility] Comment:Desirable HDL: great er than 40 mg/dL Note: This HDL assay may give artificially low results in patients with liver disease. Blood Venous blood specimen / Unknown 06/18/2024 10:18 AM EDT 06/18/2024 11:08 AM EDT Anthony Ruiz [facility] LAB BLOOD ORDERABLES Final Resul t [facility] [address], [place] [phone] * BI Mammogram Screening Tomosynthesis Bilateral (04/12/2024 1:48 PM EST) Anatomical Region Laterality Modality Breast Bilateral Mammography 04/12/2024 1:48 PM EST Narrative 04/17/2024 12:38 PM EST [facility] [address] [place] [address] Mammography Report Signed Patient: Nuvia Fay MR #: [id number] : 1960 Acct:[id number] Age/Sex: 63 / F ADM Date: 04/12/24 Loc: HO.MAMMO Attending Dr: Monica Lozano CNM Ordering Physician: Monica Lozano CNM Results: 2Beni gn Findings Date of Service: 04/12/24 Follow Up: 1 Year From Orig inal Mammogram Procedure(s): MM tomosynthesis screening BI Accession Number(s): [id number] cc: Monica Lozano CNM; ANTHONY RUIZ NP [...] 04/17/24 1235 DD/ 1348 TD/TT: 04/12/24 1405 Salvage Engineering Technician: Procedure Note Donotuseinterpreter, Image - 04/17/2024 [facility] [address] [place], [place] [address] Mammography Report Signed Patient: Nuvia Fay EMR #: [id number] : 1960cct:[id number] Age/Sex: 63 / FADM Date: 04/12/24 Loc: HO.MAMMO Attending Dr: Monica Lozano CNM Ordering Physician: Monica LozanoMResults: 2Beni gn Findings Date of Service: 04/12/24Follow Up: 1 Year From Orig inal Mammogram Procedure(s): MM tomosynthesis screening BI Accession Number(s): [id number] cc: Monica Lozano CNM; ANTHONY RUIZ NP [...] 04/17/24 1235 DD/ 1348 TD/TT: 04/12/24 1405 Salvage Engineering Technician: [facility] External Provider IM BI PROCEDURES Edited Result - Final * Albumin, Random Urine W/Creatinine (01/02/2024 8:44 AM EST) Creatinine, Urine 47.20 mg/dL [facility] Microalbumin Urine 7.0 mg/L [facility] Microalbum Creatinine Ratio Ur 14.8 <30 ug/mg cr [facility] Comment:Albumin/Creatinine R atio Reference Ranges: Normal: < 30 ug/mg creatinine Microalbuminuria: 30 - 300 ug/mg creatinineClinical Albuminuria: > 300 ug/mg creatinine Urine (Urine, Random) 01/02/2024 8:44 AM EST 01/02/2024 11:09 AM EST [facility] LAB URINE ORDERABLES Final Resul t [facility] [address] [place] [phone] * (ABNORMAL) Colonoscopy (12/27/2021) Pathologist [facility] Colonoscopy Abnormal(A ) Normal Historical Provider HEALTH MAINTENANCE Final Result * HPV E6/E7 RFLX ALFRED 16 18/45 (05/09/2020 11:19 AM EDT) HPV mRNA E6/E7 rflx Not Detected Not Detected [facility] Comment: Methodology: Credit Risk Specialist-Mediated Amplification This assay detects E6/E7 viral messenger RNA (mRNA) from 14 high-risk HPV types (16,18,31,33,35,39,45,51,52,56,58,59,66,68). The analytical performance characteristics of this assay have been determined by [employer]. The modifications have not been cleared or approved by the FDA. This assay has been validated pursuant to the CLIA regulations and is used for clinical purposes. For additional information, please refer to http://education.TourRadar.E96/faq/GSB687p9 (This link if provided for information/ educational purposes only.) THIS TEST WAS PERFORMED AT: [employer] [address] [place] [address] [address] [facility] [address] HERNAN WARREN MD 05/09/2020 11:1 9 AM EDT us [facility] [place] HISTORICAL/NON ORDERABLE LABS Fi nal Result [facility] [address] [place] [address], from Last 3 Months or Most Recently Relevant to Health Maintenance Insurance [facility] [address] [facility] Care Teams Global Professional Relationship Specialty Start Date End Date Anthony Ruiz ANP [address] [place], [place] PCP - General Family Medicine 09/23/19 Yuri Pierre, MikeD [address] [place] [address] Pharmacist Internal Medicine 05/05/24 Basilio Hall MD [address] [place] [address] Cardiology 05/17/24 Ron Preciado MD [address] [place] [address] Pulmonary Disease 05/17/24
--- OUTSIDE RECORDS SUMMARY | 2024-10-25 10:11 | XMS_ITS | Encounter Summary ---
Author Organization [employer] Address [address] [facility] 7t [place] [address] Care Team Providers Care Retail Marketing Specialist Name Role Phone Sariah Vickers Primary Care Provider [phone] Yuri Pierre PharmD Unavailable [phone] Basilio Hall MD Unavailable [phone] Ron Preciado MD Unavailable [phone] Reason for Visit * Reason Comments Med Refill Encounter Details Date Type Department Care Team (Late st Contact Info) Description 07/17/[address] [facility] MED[facility]INE [address] [place] [address] Sariah Vickers ANP 230 [place] [address] Neck pain Social History Tobacco Use Types [...] 11/05/2024 2:30 PM EDT Office Visit [address] [address] Hallie Tapia MD [address] [place] [address] 11/12/2024 9:30 AM EDT Clinical Support [address] [address] Azeb Hall RN 505 [place] [address] 01/11/2025 1:00 PM EST Office Visit [address] [address] Sariah Vickers ANP [address] [place] [address] 02/03/2025 11:00 AM EST Medication Management [address] [address] Yuri Pierre, Dileep [address] [place] [address] documented as of this encounter Visit Diagnoses Diagnosis Neck pain Cervicalgia documented in this encounter Care Teams Retail Marketing Specialist Relationship Specialty Start Date End Date Sariah Vickers ANP [address] [place] [address] PCP - General Family Medicine 09/23/19 Yuri Pierre, PharmD [address] [place] [address] Pharmacist Internal Medicine 05/05/24 Basilio Hall MD [address] [place] [address] Cardiology 05/17/24 Ron Preciado MD [address] [place], [place] [phone] Pulmonary Disease 05/17/24 documented as of this encounter
--- OUTSIDE RECORDS SUMMARY | 2024-10-25 10:12 | XMS_ITS | Encounter Summary ---
Author Organization [employer] Address 75 [facility] 7t [place] [address] Care Team Providers Care Patch Setter Name Role Phone Sariah Vickers Primary Care Provider [phone] Yuri Pierre PharmD Unavailable [phone] Basilio Hall MD Unavailable [phone] Ron Preciado MD Unavailable [phone] Reason for Visit * Reason Onset Date Comments Med Refill Durable Medical Equipment 07/15/2023 Foam M attress/Raised Toilet Seat Encounter Details Date Type Department Care Team (Late st Contact Info) Description 07/15/2023 Refill [facility] MEDICINE 230 [place], [place] [phone] Sariah Vickers ANP [address] [place] [address] Neck pain Social History Tobacco Use Types [...] request sent via email by [facility] Bag Press Operator Arlin Baker. Please Advise. Good morning, [...] Visit [facility] MEDICINE [address] [place] [address] Hallie Tapia MD [address] [place] [address] 11/12/2024 9:30 AM EDT Clinical Support [address] [phone] Azeb Hall, MARTIN [address] [place] [address] 01/11/2025 1:00 PM EST Office Visit [address] [phone] Sariah Vickers ANP [address] [place] [address] 02/03/2025 11:00 AM EST Medication Management [address] [phone] Yuri Pierre, Dileep [address] [place] [address] documented as of this encounter Goals Goal [...] documented as of this encounter Care Teams Patch Setter Relationship Specialty Start Date End Date Sariah Vickers ANP [address] [place] [address] PCP - General Family Medicine 09/23/19 Yuri Pierre, MikeD [address] [place] [address] Pharmacist Internal Medicine 05/05/24 Basilio Hall MD [address] [place] [address] Cardiology 05/17/24 Ron Preciado MD [address] [place] [address] Pulmonary Disease 05/17/24 documented as of this encounter
--- OUTSIDE RECORDS SUMMARY | 2024-10-25 10:12 | XMS_ITS | Encounter Summary ---
Author Organization [employer] Address 75 [facility] 7t [place] [address] Care Team Providers Care Reheat Furnace Operator Name Role Phone Sariah Vickers Primary Care Provider [phone] Yuri Pierre PharmD Unavailable [phone] Basilio Hall MD Unavailable [phone] Ron Preciado MD Unavailable [phone] Reason for Visit * Reason Comments Med Refill Encounter Details Date Type Department Care Team (Late st Contact Info) Description 07/10/2023 Refill [facility] 230 [place] [address] Sariah Vickers ANP 230 [place], [place] [phone] Chronic SI joint pain Social History Tobacco [...] 11/05/2024 2:30 PM EDT Office Visit [address] [address] Hallie Tapia MD [address] [place] [address] 11/12/2024 9:30 AM EDT Clinical Support [address] [address] Azeb Hall RN 505 [place] [address] 01/11/2025 1:00 PM EST Office Visit [address] [address] Sariah Vickers, KAYLEE [address] [place] [address] 02/03/2025 11:00 AM EST Medication Management [address] [address] Yuri Pierre, PharmD [address] [place] [address] documented as of this encounter Goals Goal [...] documented as of this encounter Care Teams Reheat Furnace Operator Relationship Specialty Start Date End Date Sariah Vickers ANP 230 [place] [address] PCP - General Family Medicine 09/23/19 Yuri Pierre, MikeD 230 [place] [address] Pharmacist Internal Medicine 05/05/24 Basilio Hall MD 596 [place] [address] Cardiology 05/17/24 Ron Preciado MD [address] [place] [address] Pulmonary Disease 05/17/24 documented as of this encounter
--- OUTSIDE RECORDS SUMMARY | 2024-10-25 10:12 | XMS_ITS | Encounter Summary ---
Author Organization [employer] Address 75 [facility] 7t [place] [address] Care Team Providers Care Special Education Tutor Name Role Phone Sariah Vickers Primary Care Provider [phone] Yuri Pierre PharmD Unavailable [phone] Basilio Hall MD Unavailable [phone] Ron Preciado MD Unavailable [phone] Reason for Visit * Reason Comments Med Refill Encounter Details Date Type Department Care Team (Late st Contact Info) Description 06/30/2023 Refill [facility] MEDICINE 230 [place] [address] Sariah Vickers ANP 230 [place] [address] Neck pain Social History Tobacco Use Types [...] 11/05/2024 2:30 PM EDT Office Visit [address] [address] Hallie Tapia MD [address] [place] [address] 11/12/2024 9:30 AM EDT Clinical Support [address] [address] Azeb Hall RN 505 [place] [address] 01/11/2025 1:00 PM EST Office Visit [address] [address] Sariah Vickers, ANP [address] [place] [address] 02/03/2025 11:00 AM EST Medication Management [address] [address] Yuri Pierre, PharmD [address] [place] [address] documented as of this encounter Goals Goal [...] documented as of this encounter Care Teams Special Education Tutor Relationship Specialty Start Date End Date Sariah Vickers ANP [address] [place] [address] PCP - General Family Medicine 09/23/19 Yuri Pierre PharmD [address] [place] [address] Pharmacist Internal Medicine 05/05/24 Basilio Hall MD [address] [place] [address] Cardiology 05/17/24 Ron Preciado MD [address] [place] [address] Pulmonary Disease 05/17/24 documented as of this encounter
== END 2024-10-25 09:01 | disposition home or self-care (01) ==
LOC: HO.HMGAL 08:58
PROVIDERS: PCP Nurse Practitioner Primary Care; Visit Provider Registered Nurse Emergency
DX: J30.89 Other allergic rhinitis (principal)
CPT/HCPCS: 95117; 95165

== ENCOUNTER 2024-11-01 09:09 | Outpatient (AMB) | payer OTHER, SELFPAY ==
--- OUTSIDE RECORDS SUMMARY | 2024-11-01 10:44 | XMS_ITS | Encounter Summary ---
Author Organization [employer] Address 75 [facility] 7t [place] [address] Care Team Providers Care Butt Trimmer Name Role Phone Sariah Vickers Primary Care Provider [phone] Yuri Pierre PharmD Unavailable [phone] Basilio Hall MD Unavailable [phone] Ron Preciado MD Unavailable [phone] Reason for Visit * Reason Comments Med Refill Encounter Details Date Type Department Care Team (Late st Contact Info) Description 03/03/2022 Refill [facility] MEDICINE 230 [place] [address] Sariah Vickers ANP [address] [place] [address] Social History Tobacco Use Types Packs/Day Years [...] Care Team (Late st Contact Info) Description 11/01/2024 2:45 PM EDT Office Visit [address] [address] Reta Sue MD [address] [place] [address] 11/05/2024 2:30 PM EDT Office Visit [address] [address] Hallie Tapia MD [address] [place] [address] 11/12/2024 9:30 AM EDT Clinical Support [address] [address] Azeb Hall RN 505 [place] [address] 01/11/2025 1:00 PM EST Office Visit [address] [address] Sariah Vickers ANP [address] [place] [address] 02/03/2025 11:00 AM EST Medication Management [address] [address] Yuri Pierre, PharmD [address] [place] [address] documented as of this encounter Visit Diagnoses Not on filedocumented in this encounter Care Teams Butt Trimmer Relationship Specialty Start Date End Date Sariah Vickers ANP [address] [place] [address] PCP - General Family Medicine 09/23/19 Yuri Pierre, MikeD [address] [place] [address] Pharmacist Internal Medicine 05/05/24 Basilio Hall MD [address] [place] [phone] Cardiology 05/17/24 Ron Preciado MD [address] [place] [phone] Pulmonary Disease 05/17/24 documented as of this encounter
--- OUTSIDE RECORDS SUMMARY | 2024-11-01 10:44 | XMS_ITS | Encounter Summary ---
Author Organization [employer] Address 75 [facility] 7t [place] [address] Care Team Providers Care Bruise Trimmer Name Role Phone Sariah Vickers Primary Care Provider [phone] Yuri Pierre PharmD Unavailable [phone] Basilio Hall MD Unavailable [phone] Ron Preciado MD Unavailable [phone] Reason for Visit * Reason Comments Med Refill Encounter Details Date Type Department Care Team (Late st Contact Info) Description 10/03/2023 Refill [facility] 230 [place] [address] Sariah Vickers ANP 230 [place], [place] [phone] Chronic SI joint pain Social History Tobacco [...] Description 11/01/2024 2:45 PM EDT Office Visit [address] [address] Reta Sue MD [address] [place] [address] 11/05/2024 2:30 PM EDT Office Visit [address] [address] Hallie Tapia MD [address] [place] [address] 11/12/2024 9:30 AM EDT Clinical Support [address] [address] Azeb Hall RN [address] [place] [address] 01/11/2025 1:00 PM EST Office Visit [address] [address] Sariah Vickers ANP [address] [place] [address] 02/03/2025 11:00 AM EST Medication Management [facility] 230 [place] [address] Yuri Pierre, PharmD 230 [place] [address] documented as of this encounter Goals Goal Patient Goal Type Associated Problems Recent Progress Patient-Stated? Author Blood Pressure < 140/90 Blood Pressure 140/90(2024 1:50 PM EDT) No Phanis-Gambl Aida urbina, PharmD Record Your Blood Sugar As Directed General No Phanis-Gambl Aida urbina PharmD Hemoglobin A1c < 7 Result Component 6.6( 1:54 PM EDT) No Phanis-Aida Medina PharmD documented as of this encounter Visit Diagnoses Diagnosis Chronic SI joint pain Disorders of sacrum documented in this encounter Additional Health Concerns Assessment Noted Time PHQ-9 Depression Total Score: 12 024 2:58 PM EDT documented as of this encounter Care Teams Bruise Trimmer Relationship Specialty Start Date End Date Sariah Vickers ANP 230 [place] [address] PCP - General Family Medicine 09/23/19 Yuri Pierre, PharmD 230 [place] [address] Pharmacist Internal Medicine 05/05/24 Basilio Hall MD [address] [place] [address] Cardiology 05/17/24 Ron Preciado MD [address] [place] [address] Pulmonary Disease 05/17/24 documented as of this encounter
--- OUTSIDE RECORDS SUMMARY | 2024-11-01 10:44 | XMS_ITS | Encounter Summary ---
Author Organization [employer] Address 75 [facility] 7t [place] [address] Care Team Providers Care Milieu Manager Name Role Phone Sariah Vickers Primary Care Provider [phone] Yuri Pierre PharmD Unavailable [phone] Basilio Hall MD Unavailable [phone] Ron Preciado MD Unavailable [phone] Encounter Details Date Type Department Care Team (Latest Contact Info) Description 05/15/2018 Abstract [facility] CONVERSIONS Dental, Provider, DDS Social History Tobacco [...] Description 11/01/2024 2:45 PM EDT Office Visit [facility] MEDICINE [address] [place] [address] [phone] Reta Sue MD [address] [place] [phone] 11/05/2024 2:30 PM EDT Office Visit [facility] MEDICINE [address] [place] [address] [phone] Hallie Tapia MD [address] [place] [address] [phone] 11/12/2024 9:30 AM EDT Clinical Support [address] [address] Azeb Hall, MARTIN 505 [place] [address] 01/11/2025 1:00 PM EST Office Visit [address] [address] Sariah Vickers ANP [address] [place] [address] 02/03/2025 11:00 AM EST Medication Management [address] [address] Yuri Pierre, PharmD [address] [place] [address] documented as of this encounter Visit Diagnoses Not on filedocumented in this encounter Care Teams Milieu Manager Relationship Specialty Start Date End Date Sariah Vickers ANP [address] [place] [address] PCP - General Family Medicine 09/23/19 Yuri Pierre, PharmD [address] [place] [address] Pharmacist Internal Medicine 05/05/24 Basilio Hall MD [address] [place] [address] Cardiology 05/17/24 Ron Preciado MD [address] [place] [address] Pulmonary Disease 05/17/24 documented as of this encounter
--- OUTSIDE RECORDS SUMMARY | 2024-11-01 10:44 | XMS_ITS | Encounter Summary ---
Author Organization [employer] Address 75 [facility] 7t [place] [address] Care Team Providers Care Fur Glosser Name Role Phone Sariah Vickers Primary Care Provider [phone] Yuri Pierre PharmD Unavailable [phone] Basilio Hall MD Unavailable [phone] Ron Preciado MD Unavailable [phone] Encounter Details Date Type Department Care Team (Late st Contact Info) Description 02/05/2022 Abstract [facility] MEDICINE 230 [place] [address] Sariah Vickers ANP [address] [place] [address] Social History Tobacco Use Types Packs/Day Years [...] Not at all 02/05/2022 2:47 PM EST Daryn SixtoDAYA Feeling down, depressed, or hopeless Not at all 02/05/2022 2:47 PM EST Daryn SixtoDAYA Patient Health Questionnaire -2 Score 0 02/05/2022 2:47 PM EST Sixto Stearns [place] documented as of this encounter Plan of Treatment Upcoming Encounters Date Type Department Care Team (Late st Contact Info) Description 11/01/2024 2:45 PM EDT Office Visit [address] [address] Reta Sue MD [address] [place] [address] 11/05/2024 2:30 PM EDT Office Visit [address] [address] Hallie Tapia MD [address] [place] [address] 11/12/2024 9:30 AM EDT Clinical Support [address] [address] Azeb Hall, RN 505 [place] [address] 01/11/2025 1:00 PM EST Office Visit [address] [address] Sariah Vickers ANP [address] [place] [address] 02/03/2025 11:00 AM EST Medication Management [address] [address] Yuri Pierre, MikeD [address] [place] [address] documented as of this encounter Visit Diagnoses Not on filedocumented in this encounter Care Teams Fur Glosser Relationship Specialty Start Date End Date Sariah Vickers ANP 230 [place] [address] PCP - General Family Medicine 09/23/19 Yuri Pierre, Dileep 230 [place], [place] [phone] Pharmacist Internal Medicine 05/05/24 Basilio Hall MD 596 [place] [address] Cardiology 05/17/24 Ron Preciado MD [address] [place] [address] Pulmonary Disease 05/17/24 documented as of this encounter
--- OUTSIDE RECORDS SUMMARY | 2024-11-01 10:44 | XMS_ITS | Encounter Summary ---
Author Organization [employer] Address 75 [facility] 7t [place] [address] Care Team Providers Care Non Licensed Operator Name Role Phone Sariah Vickers Primary Care Provider [phone] Yuri Pierre PharmD Unavailable [phone] Basilio Hall MD Unavailable [phone] Ron Preciado MD Unavailable [phone] Reason for Visit * Reason Onset Date Comments Med Refill 02/04/2024 Encounter Details Date Type Department Care Team (Late st Contact Info) Description 02/04/2024 Telephone [facility] 230 [place] [address] Sariah Vickers ANP 230 [place], [place] [phone] Med Refill Social History Tobacco Use Types [...] 50 MG tablet To be sent to: [facility] - [place], [place] - [address] [place] [address] documented in this encounter Plan of Treatment Upcoming Encounters Date Type Department Care Team ([facility] st Contact Info) Description 11/01/2024 2:45 PM EDT Office Visit [facility] [address] [place] [address] Reta Sue MD [address] [place] [address] 11/05/2024 2:30 PM EDT Office Visit [address] [address] Hallie Tapia MD [address] [place] [address] 11/12/2024 9:30 AM EDT Clinical Support [address] [address] Azeb Hall, MARTIN [address] [place] [address] 01/11/2025 1:00 PM EST Office Visit [address] [address] Sariah Vickers ANP [address] [place] [address] 02/03/2025 11:00 AM EST Medication Management [address] [phone] Yuri Pierre PharmD [address] [place] [address] documented as of this encounter Goals Goal [...] documented as of this encounter Care Teams Non Licensed Operator Relationship Specialty Start Date End Date Sariah Vickers ANP [address] [place] [address] PCP - General Family Medicine 09/23/19 Yuri Pierre, PharmD [address] [place] [address] Pharmacist Internal Medicine 05/05/24 Basilio Hall MD [address] [place] [address] Cardiology 05/17/24 Ron Preciado MD [address] [place] [address] Pulmonary Disease 05/17/24 documented as of this encounter
--- OUTSIDE RECORDS SUMMARY | 2024-11-01 10:44 | XMS_ITS | Encounter Summary ---
Author Organization [employer] Address 75 [facility] 7t [place] [address] Care Team Providers Care Smoking Pipe Liner Name Role Phone Sariah Vickers Primary Care Provider [phone] Yuri Pierre PharmD Unavailable [phone] Basilio Hall MD Unavailable [phone] Ron Preciado MD Unavailable [phone] Reason for Visit * Reason Comments Med Refill Encounter Details Date Type Department Care Team (Late st Contact Info) Description 03/26/2022 Refill [facility] 230 [place] [address] Sariah Vickers ANP 230 [place] [address] Social History Tobacco Use Types Packs/Day Years [...] Description 11/01/2024 2:45 PM EDT Office Visit [address] [address] Reta Sue MD [address] [place] [address] 11/05/2024 2:30 PM EDT Office Visit [address] [address] Hallie Tapia MD [address] [place] [address] 11/12/2024 9:30 AM EDT Clinical Support [address] [address] Azeb Hall RN [address] [place] [address] 01/11/2025 1:00 PM EST Office Visit [address] [address] Sariah Vickers ANP [address] [place] [address] 02/03/2025 11:00 AM EST Medication Management [address] [address] Yuri Pierre, Dileep [address] [place] [address] documented as of this encounter Visit Diagnoses Not on filedocumented in this encounter Care Teams Smoking Pipe Liner Relationship Specialty Start Date End Date Sariah Vickers ANP [address] [place] [address] PCP - General Family Medicine 09/23/19 Yuri Pierre, PharmD [address] [place] [address] Pharmacist Internal Medicine 05/05/24 Basilio Hall MD 596 [place] [address] Cardiology 05/17/24 Ron Preciado MD [address] [place] [address] Pulmonary Disease 05/17/24 documented as of this encounter
--- OUTSIDE RECORDS SUMMARY | 2024-11-01 10:44 | XMS_ITS | Encounter Summary ---
Author Organization [employer] Address 75 [facility] 7t [place] [address] Care Team Providers Care Plasma Processor Name Role Phone Sariah Vickers Primary Care Provider [phone] Yuri Pierre PharmD Unavailable [phone] Basilio Hall MD Unavailable [phone] Ron Preciado MD Unavailable [phone] Reason for Visit * Reason Comments Med Refill Encounter Details Date Type Department Care Team (Late st Contact Info) Description 10/03/2023 Refill [facility] 230 [place] [address] Sariah Vickers ANP 230 [place], [place] [phone] Chronic SI joint pain Social History Tobacco [...] 11/01/2024 2:45 PM EDT Office Visit [address] [address] Reta Sue MD [address] [place] [address] 11/05/2024 2:30 PM EDT Office Visit [address] [address] Hallie Tapia MD [address] [place] [address] 11/12/2024 9:30 AM EDT Clinical Support [address] [address] Azeb Hall RN [address] [place] [address] 01/11/2025 1:00 PM EST Office Visit [address] [address] Sariah Vickers ANP [address] [place] [address] 02/03/2025 11:00 AM EST Medication Management [facility] 230 [place] [address] Yuri Pierre, PharmD 230 [place] [address] documented as of this encounter Goals Goal [...] documented as of this encounter Care Teams Plasma Processor Relationship Specialty Start Date End Date Sariah Vickers ANP 230 [place] [address] PCP - General Family Medicine 09/23/19 Yuri Pierre, PharmD 230 [place] [address] Pharmacist Internal Medicine 05/05/24 Basilio Hall MD 596 [place] [address] Cardiology 05/17/24 Ron Preciado MD [address] [place] [address] Pulmonary Disease 05/17/24 documented as of this encounter
--- OUTSIDE RECORDS SUMMARY | 2024-11-01 10:44 | XMS_ITS | Encounter Summary ---
Author Organization [employer] Address 75 [facility] 7t [place] [address] Care Team Providers Care Paleologist Name Role Phone Sariah Vickers Primary Care Provider Yuri Pierre PharmD Unavailable [phone] Basilio Hall MD Unavailable [phone] Ron Preciado MD Unavailable [phone] Reason for Visit * Reason Comments Med Refill Encounter Details Date Type Department Care Team (Late st Contact Info) Description 08/22/2023 Refill [facility] 230 [place] [address] Sariah Vickers ANP 230 [place] [address] Neck pain Social History Tobacco Use Types [...] Description 11/01/2024 2:45 PM EDT Office Visit [address] [address] Reta Sue MD [address] [place] [address] 11/05/2024 2:30 PM EDT Office Visit [address] [address] Hallie Tapia MD [address] [place] [address] 11/12/2024 9:30 AM EDT Clinical Support [address] [address] Azeb Hall RN [address] [place] [address] 01/11/2025 1:00 PM EST Office Visit [address] [address] Sariah Vickers ANP [address] [place] [address] 02/03/2025 11:00 AM EST Medication Management [facility] 230 [place] [address] Yuri Pierre, PharmD 230 [place] [address] documented as of this encounter Goals Goal [...] documented as of this encounter Care Teams Paleologist Relationship Specialty Start Date End Date Sariah Vickers ANP 230 [place] [address] PCP - General Family Medicine 09/23/19 Yuri Pierre, PharmD [address] [place] [address] Pharmacist Internal Medicine 05/05/24 Basilio Hall MD 596 [place] [address] Cardiology 05/17/24 Ron Preciado MD [address] [place] [address] Pulmonary Disease 05/17/24 documented as of this encounter
--- OUTSIDE RECORDS SUMMARY | 2024-11-01 10:44 | XMS_ITS | Encounter Summary ---
Author Organization [employer] Address 75 [facility] 7t [place] [address] Care Team Providers Care Tortilla Maker Name Role Phone Sariah Vickers Primary Care Provider [phone] Yuri Pierre PharmD Unavailable [phone] Basilio Hall MD Unavailable [phone] Ron Preciado MD Unavailable [phone] Reason for Visit * Reason Comments Med Refill Encounter Details Date Type Department Care Team (Late st Contact Info) Description 03/09/2024 Refill [facility] [address] [place] [address] Sariah Vickers ANP 230 [place] [address] Neck pain Social History Tobacco Use Types [...] Description 11/01/2024 2:45 PM EDT Office Visit [address] [address] Reta Sue MD [address] [place] [address] 11/05/2024 2:30 PM EDT Office Visit [address] [address] Hallie Tapia MD [address] [place] [address] 11/12/2024 9:30 AM EDT Clinical Support [address] [address] Azeb Hall RN [address] [place] [address] 01/11/2025 1:00 PM EST Office Visit [address] [address] Sariah Vickers ANP [address] [place] [address] 02/03/2025 11:00 AM EST Medication Management [facility]INE 230 [place] [address] Yuri Pierre, PharmD 230 [place] [address] documented as of this encounter Goals Goal Patient Goal Type Associated Problems Recent Progress Patient-Stated? Author Blood Pressure < 140/90 Blood Pressure 140/90(2024 1:50 PM EDT) No Phanis-Gambl Aida urbina, PharmD Record Your Blood Sugar As Directed General No PhanisAida Cheng PharmD Hemoglobin A1c < 7 Result Component 6.6( 1:54 PM EDT) No Katelin-Aida Medina PharmD documented as of this encounter Visit Diagnoses Diagnosis Neck pain Cervicalgia documented in this encounter Additional Health Concerns Assessment Noted Time PHQ-9 Depression Total Score: 024 2:58 PM EDT documented as of this encounter Care Teams Tortilla Maker Relationship Specialty Start Date End Date Sariah Vickers ANP 230 [place] [address] PCP - General Family Medicine 09/23/19 Yuri Pierre, PharmD [address] [place] [address] Pharmacist Internal Medicine 05/05/24 Basilio Hall MD 596 [place] [address] Cardiology 05/17/24 Ron Preciado MD [address] [place] [address] Pulmonary Disease 05/17/24 documented as of this encounter
--- OUTSIDE RECORDS SUMMARY | 2024-11-01 10:44 | XMS_ITS | Encounter Summary ---
Author Organization [employer] Address 75 [facility] 7t [place] [address] Care Team Providers Care Speedometer Mechanic Name Role Phone Sariah Vickers Primary Care Provider [phone] Yuri Pierre PharmD Unavailable [phone] Basilio Hall MD Unavailable [phone] Ron Preciado MD Unavailable [phone] Reason for Visit * Reason Comments Med Refill Patient walked in [facility] pharmacy hasn't finished her Medbox due to missing refill for medication Gabapetin . Encounter Details Date Type Department Care Team (Late st Contact Info) Description 10/03/2023 Refill [facility] 230 [place], [place] [phone] Sariah Vickers ANP 230 [place], [place] [phone] Chronic SI joint pain Social History Tobacco [...] the past 12 months, has t he [employer], gas, oil or water [employer] threatened to shut off services in your [...] Description 11/01/2024 2:45 PM EDT Office Visit [facility] [address] [place] [address] Reta Sue MD [address] [place] [address] 11/05/2024 2:30 PM EDT Office Visit [facility] [address] [place] [address] Hallie Tapia MD [address] [place] [address] 11/12/2024 9:30 AM EDT Clinical Support [address] [phone] Azeb Hall, RN 505 [place] [address] 01/11/2025 1:00 PM EST Office Visit [address] [phone] Sariah Vickers ANP [address] [place] [address] 02/03/2025 11:00 AM EST Medication Management [address] [phone] Yuri Pierre, Dileep [address] [place] [address] documented as of this encounter Goals Goal [...] documented as of this encounter Care Teams Speedometer Mechanic Relationship Specialty Start Date End Date Sariah Vickers ANP [address] [place] [address] PCP - General Family Medicine 09/23/19 Yuri Pierre, PharmD [address] [place] [address] Pharmacist Internal Medicine 05/05/24 Basilio Hall MD 596 [place] [address] Cardiology 05/17/24 Ron Preciado MD [address] [place] [address] Pulmonary Disease 05/17/24 documented as of this encounter
--- OUTSIDE RECORDS SUMMARY | 2024-11-01 10:44 | XMS_ITS | Encounter Summary ---
Author Organization [employer] Address 75 [facility] 7t [place] [address] Care Team Providers Care Medical Center Representative Name Role Phone Sariah Vickers Primary Care Provider [phone] Yuri Pierre PharmD Unavailable [phone] Basilio Hall MD Unavailable [phone] Ron Preciado MD Unavailable [phone] Encounter Details Date Type Department Care Team (Latest Contact Info) Description 06/20/2021 Abstract [facility] CONVERSIONS Dental, Provider, DDS Social History Tobacco [...] Description 11/01/2024 2:45 PM EDT Office Visit [facility] MED[facility] [address] [place] [address] [phone] Reta Sue MD [address] [place] [address] [phone] 11/05/2024 2:30 PM EDT Office Visit [facility] [address] [place] [address] [phone] Hallie Tapia MD [address] [place] [address] [phone] 11/12/2024 9:30 AM EDT Clinical Support [address] [address] Azeb Hall, RN 505 [place] [address] 01/11/2025 1:00 PM EST Office Visit [address] [address] Sariah Vickers ANP [address] [place] [address] 02/03/2025 11:00 AM EST Medication Management [address] [address] Yuri Pierre, PharmD [address] [place] [address] documented as of this encounter Visit Diagnoses Not on filedocumented in this encounter Care Teams Medical Center Representative Relationship Specialty Start Date End Date Sariah Vickers ANP [address] [place] [address] PCP - General Family Medicine 09/23/19 Yuri Pierre, PharmD [address] [place] [address] Pharmacist Internal Medicine 05/05/24 Basilio Hall MD 596 [place] [address] Cardiology 05/17/24 Ron Preciado MD [address] [place] [address] Pulmonary Disease 05/17/24 documented as of this encounter
--- OUTSIDE RECORDS SUMMARY | 2024-11-01 10:44 | XMS_ITS | Encounter Summary ---
Author Organization [employer] Address [address] [place] [address] 7t [place] [address] Care Team Providers Care Marketing Graphics Specialist Name Role Phone Sariah Vickers Primary Care Provider [phone] Yuri Pierre PharmD Unavailable [phone] Basilio Hall MD Unavailable [phone] Ron Preciado MD Unavailable [phone] Reason for Visit * Reason Onset Date Comments Nurse Triage 11/01/2022 Encounter Details Date Type Department Care Team (Late st Contact Info) Description 11/01/2022 Telephone [facility] 230 [place] [address] Sariah Vickers ANP 230 [place] [address] Nurse Triage Social History Tobacco Use Types [...] 11/01/2022 3:51 PM EDT Triage call with Moore Tool Adjuster ID [id number] Pt reports blood sugars have been high [...] Description 11/01/2024 2:45 PM EDT Office Visit [facility] [address] [place] [address] Reta Sue MD [address] [place] [address] 11/05/2024 2:30 PM EDT Office Visit [facility] [address] [place] [address] Hallie Tapia MD 230 [place] [address] 11/12/2024 9:30 AM EDT Clinical Support [address] [address] Azeb Hall RN 505 [place] [address] 01/11/2025 1:00 PM EST Office Visit [address] [phone] Sariah Vickers ANP [address] [place] [address] 02/03/2025 11:00 AM EST Medication Management [address] [phone] Yuri Pierre, Dileep [address] [place] [address] documented as of this encounter Goals Goal Patient Goal Type Associated Problems Recent Progress Patient-Stated? Author Blood Pressure < 140/90 Blood Pressure 140/90(2024 1:50 PM EDT) No Aida Ragland, PharmBear Record Your Blood Sugar As Directed General No Aida Ragland PharmD Hemoglobin A1c < 7 Result Component 6.6( 1:54 PM EDT) No Aida Ragland PharmD documented as of this encounter Visit Diagnoses Not on filedocumented in this encounter Care Teams Marketing Graphics Specialist Relationship Specialty Start Date End Date Sariah Vickers ANP [address] [place] [address] PCP - General Family Medicine 09/23/19 Yuri Pierre, PharmD [address] [place] [address] Pharmacist Internal Medicine 05/05/24 Basilio Hall MD [address] [place], [place] Cardiology 05/17/24 Ron Preciado MD [address] [place], [place] [address]40 Pulmonary Disease 05/17/24 documented as of this encounter
--- OUTSIDE RECORDS SUMMARY | 2024-11-01 10:44 | XMS_ITS | Encounter Summary ---
Author Organization [employer] Address 75 [facility] 7t [place] [address] Care Team Providers Care Special Education Director Name Role Phone Sariah Vickers Primary Care Provider [phone] Yuri Pierre PharmD Unavailable [phone] Basilio Hall MD Unavailable [phone] Ron Preciado MD Unavailable [phone] Encounter Details Date Type Department Care Team (Latest Contact Info) Description 04/14/2020 Abstract [facility] CONVERSIONS Dental, Provider, DDS Social History Tobacco [...] Description 11/01/2024 2:45 PM EDT Office Visit [facility] [address] [place] [address] [phone] Reta Sue MD [address] [place] [address] [phone] 11/05/2024 2:30 PM EDT Office Visit [facility] [address] [place] [address] [phone] Hallie Tapia MD [address] [place] [address] [phone] 11/12/2024 9:30 AM EDT Clinical Support [address] [address] Azbe Hall, RN 505 [place] [address] 01/11/2025 1:00 PM EST Office Visit [address] [address] Sariah Vickers ANP [address] [place] [address] 02/03/2025 11:00 AM EST Medication Management [address] [address] Yuri Pierre, PharmD [address] [place] [address] documented as of this encounter Visit Diagnoses Not on filedocumented in this encounter Care Teams Special Education Director Relationship Specialty Start Date End Date Sariah Vickers ANP [address] [place] [address] PCP - General Family Medicine 09/23/19 Yuri Pierre, PharmD [address] [place] [address] Pharmacist Internal Medicine 05/05/24 Basilio Hall MD 596 [place] [address] Cardiology 05/17/24 Ron Preciado MD [address] [place] [address] Pulmonary Disease 05/17/24 documented as of this encounter
--- OUTSIDE RECORDS SUMMARY | 2024-11-01 10:44 | XMS_ITS | Encounter Summary ---
Author Organization [employer] Address 75 [facility] 7t [place] [address] Care Team Providers Care Banking Supervisor Name Role Phone Sariah Vickers Primary Care Provider [phone] Yuri Pierre PharmD Unavailable [phone] Basilio Hall MD Unavailable [phone] Ron Preciado MD Unavailable [phone] Reason for Visit * Reason Comments Med Refill Pt wants to know if she can keep taking prednis Encounter Details Date Type Department Care Team (Late st Contact Info) Description 06/26/2024 Refill [facility] [address] [place] [address] Sariah Vickers ANP 230 [place] [address] Cervicalgia Social History Tobacco Use Types Packs/Day [...] Description 11/01/2024 2:45 PM EDT Office Visit [address] [address] Reta Sue MD [address] [place] [address] 11/05/2024 2:30 PM EDT Office Visit [address] [address] Hallie Tapia MD [address] [place] [address] 11/12/2024 9:30 AM EDT Clinical Support [address] [address] Azeb Hall RN 505 [place] [address] 01/11/2025 1:00 PM EST Office Visit [address] [address] Sariah Vickers, KAYLEE [address] [place] [address] [phone] 02/03/2025 11:00 AM EST Medication Management [facility] 230 [place] [address] Yuri Pierre, PharmD 230 [place] [address] documented as of this encounter Goals Goal [...] documented as of this encounter Care Teams Banking Supervisor Relationship Specialty Start Date End Date Sariah Vickers ANP [address] [place] [address] PCP - General Family Medicine 09/23/19 Yuri Pierre, PharmD 230 [place] [address] Pharmacist Internal Medicine 05/05/24 Basilio Hall MD 596 [place] [address] Cardiology 05/17/24 Ron Preciado MD [address] [place] [address] Pulmonary Disease 05/17/24 documented as of this encounter
--- OUTSIDE RECORDS SUMMARY | 2024-11-01 10:44 | XMS_ITS | Encounter Summary ---
Author Organization [employer] Address 75 [facility] 7t [place] [address] Care Team Providers Care Digital Printer Operator Name Role Phone Sariah Vickers Primary Care Provider Yuri Pierre PharmD Unavailable [phone] Basilio Hall MD Unavailable [phone] Ron Preciado MD Unavailable [phone] Encounter Details Date Type Department Care Team (Late st Contact Info) Description 01/09/2022 Abstract [facility] [address] [place] [address] Dental, Provider, DDS Social History Tobacco Use [...] Department Care Team (Late Contact Info) Description 11/01/2024 2:45 PM EDT Office Visit [facility] MED[facility] [address] [place] [address] Reta Sue MD [address] [place] [address] [phone] 11/05/2024 2:30 PM EDT Office Visit [facility] [address] [place] [address] Hallie Tapia MD [address] [place] [address] 11/12/2024 9:30 AM EDT Clinical Support [address] [address] Azeb Hall, RN [address] [place] [address] 01/11/2025 1:00 PM EST Office Visit [facility] [address] [place] [address] Sariah Vickers ANP 230 [place] [address] 02/03/2025 11:00 AM EST Medication Management [address] [address] Yuri Pierre, PharmD [address] [place] [address] documented as of this encounter Procedures Procedure [...] filedocumented in this encounter Care Teams Digital Printer Operator Relationship Specialty Start Date End Date Sariah Vickers ANP 230 [place] [address] PCP - General Family Medicine 09/23/19 Yuri Pierre, MikeD [address] [place] [address] Pharmacist Internal Medicine 05/05/24 Basilio Hall MD [address] [place] [address] Cardiology 05/17/24 Ron Preciado MD [address] [place] [address] Pulmonary Disease 05/17/24 documented as of this encounter
--- OUTSIDE RECORDS SUMMARY | 2024-11-01 10:44 | XMS_ITS | Encounter Summary ---
Author Organization [employer] Address 75 [facility] 7t [place] [address] Care Team Providers Care Consumer Educator Name Role Phone Sariah Vickers Primary Care Provider [phone] Yuri Pierre PharmD Unavailable [phone] Basilio Hall MD Unavailable [phone] Ron Preciado MD Unavailable [phone] Reason for Visit * Reason Comments Med Refill Encounter Details Date Type Department Care Team (Late st Contact Info) Description 02/06/2022 Refill [facility] 230 [place] [address] Sariah Vickers ANP 230 [place] [address] Social History Tobacco Use Types Packs/Day Years [...] Description 11/01/2024 2:45 PM EDT Office Visit [address] [address] Reta Sue MD [address] [place] [address] 11/05/2024 2:30 PM EDT Office Visit [address] [address] Hallie Tapia MD [address] [place] [address] 11/12/2024 9:30 AM EDT Clinical Support [address] [address] Azeb Hall RN [address] [place] [address] 01/11/2025 1:00 PM EST Office Visit [address] [address] Sariah Vickers ANP [address] [place] [address] 02/03/2025 11:00 AM EST Medication Management [address] [address] Yuri Pierre, Dileep [address] [place] [address] documented as of this encounter Visit Diagnoses Not on filedocumented in this encounter Care Teams Consumer Educator Relationship Specialty Start Date End Date Sariha Vickers ANP [address] [place] [address] 33971 PCP - General Family Medicine 09/23/19 Yuri Pierre, PharmD [address] [place] [address] Pharmacist Internal Medicine 05/05/24 Basilio Hall MD 596 [place] [address] Cardiology 05/17/24 Ron Preciado MD [address] [place] [address] Pulmonary Disease 05/17/24 documented as of this encounter
--- OUTSIDE RECORDS SUMMARY | 2024-11-01 10:44 | XMS_ITS | Encounter Summary ---
Author Organization [employer] Address 75 [facility] 7t [place] [address] Care Team Providers Care Stunner And Shackler Name Role Phone Sariah Vickers Primary Care Provider Yuri Pierre PharmD Unavailable [phone] Basilio Hall MD Unavailable [phone] Ron Preciado MD Unavailable [phone] Reason for Visit * Reason Comments Med Refill Encounter Details Date Type Department Care Team (Late st Contact Info) Description 06/17/2024 Refill [facility] 230 [place] [address] Sariah Vickers ANP 230 [place], [place] [phone] Neck pain Social History Tobacco Use Types [...] Description 11/01/2024 2:45 PM EDT Office Visit [address] [address] Reta Sue MD [address] [place] [address] 11/05/2024 2:30 PM EDT Office Visit [address] [address] Hallie Tapia MD [address] [place] [address] 11/12/2024 9:30 AM EDT Clinical Support [address] [address] Azeb Hall RN [address] [place] [address] 01/11/2025 1:00 PM EST Office Visit [address] [address] Sariah Vickers ANP [address] [place] [address] 02/03/2025 11:00 AM EST Medication Management [facility] 230 [place] [address] Yuri Pierre, PharmD 230 [place] [address] documented as of this encounter Goals Goal [...] documented as of this encounter Care Teams Stunner And Shackler Relationship Specialty Start Date End Date Sariah Vickers ANP 230 [place] [address] PCP - General Family Medicine 09/23/19 Yuri Pierre, PharmD [address] [place] [address] Pharmacist Internal Medicine 05/05/24 Basilio Hall MD 596 [place] [address] Cardiology 05/17/24 Ron Preciado MD [address] [place] [address] Pulmonary Disease 05/17/24 documented as of this encounter
--- OUTSIDE RECORDS SUMMARY | 2024-11-01 10:44 | XMS_ITS | Encounter Summary ---
Author Organization [employer] Address 75 [facility] 7t [place] [address] Care Team Providers Care Supervisor Lump Room Name Role Phone Sariah Vickers Primary Care Provider [phone] Yuri Pierre PharmD Unavailable [phone] Basilio Hall MD Unavailable [phone] Ron Preciado MD Unavailable [phone] Reason for Visit * Reason Comments Med Refill Encounter Details Date Type Department Care Team (Late st Contact Info) Description 09/13/2022 Refill [facility] [address] [place] [address] Sariah Vickers ANP 230 [place] [address] Severe persistent allergic asthma without complication Social [...] Description 11/01/2024 2:45 PM EDT Office Visit [address] [address] Reta Sue MD [address] [place] [address] 117[address] 11/05/2024 2:30 PM EDT Office Visit [address] [address] Hallie Tapia MD [address] [place] [address] 11/12/2024 9:30 AM EDT Clinical Support [address] [address] Azeb Hall, MARTIN 505 [place] [address] 01/11/2025 1:00 PM EST Office Visit [address] [address] Sariah Vickers ANP [address] [place] [address] 02/03/2025 11:00 AM EST Medication Management [address] [address] Yuri Pierre, MikeD [address] [place] [address] documented as of this encounter Visit Diagnoses Diagnosis Severe persistent allergic asthma without complication documented in this encounter Care Teams Supervisor Lump Room Relationship Specialty Start Date End Date Sariah Vickers ANP [address] [place] [address] PCP - General Family Medicine 09/23/19 Yuri Pierre, PharmD [address] [place] [address]159 Pharmacist Internal Medicine 05/05/24 Basilio Hall MD 596 [place] [address] Cardiology 05/17/24 Ron Preciado MD [address] [place] [address] Pulmonary Disease 05/17/24 documented as of this encounter
--- OUTSIDE RECORDS SUMMARY | 2024-11-01 10:44 | XMS_ITS | Encounter Summary ---
Author Organization [employer] Address 75 [facility] 7t [place] [address] Care Team Providers Care Digital Project Coordinator Name Role Phone Sariah Vickers Primary Care Provider [phone] Yuri Pierre PharmD Unavailable [phone] Basilio Hall MD Unavailable [phone] Ron Preciado MD Unavailable [phone] Reason for Visit * Reason Onset Date Comments Durable Medical Equipment 03/15/2022 Encounter Details Date Type Department Care Team (Late st Contact Info) Description 03/15/2022 Telephone [facility] 230 [place] [address] Sariah Vickers ANP 230 [place], [place] [phone] Durable Medical Equipment Social History Tobacco Use [...] Description 11/01/2024 2:45 PM EDT Office Visit [address] [address] Reta Sue MD [address] [place] [address] 94659 11/05/2024 2:30 PM EDT Office Visit [address] [address] Hallie Tapia MD [address] [place] [address] 11/12/2024 9:30 AM EDT Clinical Support [address] [address] Azeb Hall, MARTIN 505 [place] [address] 01/11/2025 1:00 PM EST Office Visit [address] [address] Sariah Vickers, KAYLEE [address] [place] [address] 02/03/2025 11:00 AM EST Medication Management [address] [address] Yuri Pierre, PharmD [address] [place] [address] documented as of this encounter Visit Diagnoses Not on filedocumented in this encounter Care Teams Digital Project Coordinator Relationship Specialty Start Date End Date Sariah Vickers ANP 230 [place] [address] PCP - General Family Medicine 09/23/19 Yuri Pierre, Dileep 230 [place] [address] Pharmacist Internal Medicine 05/05/24 Basilio Hall MD [address] [place] [address] Cardiology 05/17/24 Ron Preciado MD [address] [place] [address] Pulmonary Disease 05/17/24 documented as of this encounter
--- OUTSIDE RECORDS SUMMARY | 2024-11-01 10:44 | XMS_ITS | Encounter Summary ---
Author Organization [employer] Address 75 [facility] 7t [place] [address] Care Team Providers Care Cotton Stomper Name Role Phone Sariah Vickers Primary Care Provider [phone] Yuri Pierre PharmD Unavailable [phone] Basilio Hall MD Unavailable [phone] Ron Preciado MD Unavailable [phone] Reason for Visit * Reason Onset Date Comments Med Refill 09/18/2023 Encounter Details Date Type Department Care Team (Late st Contact Info) Description 09/18/2023 Telephone [facility] 230 [place], [place] [phone] Sariah Vickers ANP 230 [place], [place] [phone] Med Refill Social History Tobacco Use Types [...] refill : Tramadol To be sent to: [facility] - [place], [place] - [address] [place] [address] documented in this encounter Plan of Treatment Upcoming Encounters Date Type Department Care Team ([facility] st Contact Info) Description 11/01/2024 2:45 PM EDT Office Visit [facility] [address] [place] [address] Reta Sue MD [address] [place] [address] 11/05/2024 2:30 PM EDT Office Visit [facility] [address] [place] [address] Hallie Tapia MD [address] [place] [address] 8[address] 11/12/2024 9:30 AM EDT Clinical Support [facility] [address] [place] [address] Azeb Hall RN 505 [place] [address] 01/11/2025 1:00 PM EST Office Visit [address] [address] Sariah Vickers ANP [address] [place] [address] 02/03/2025 11:00 AM EST Medication Management [address] [phone] Yuri Pierre, Dileep [address] [place] [address] documented as of this encounter Goals Goal [...] documented as of this encounter Care Teams Cotton Stomper Relationship Specialty Start Date End Date Sariah Vickers ANP [address] [place] [address] PCP - General Family Medicine 09/23/19 Yuri Pierre, PharmD [address] [place] [address] Pharmacist Internal Medicine 05/05/24 Basilio Hall MD 596 [place] [address] Cardiology 05/17/24 Ron Preciado MD [address] [place] [address] [phone] Pulmonary Disease 05/17/24 documented as of this encounter
--- OUTSIDE RECORDS SUMMARY | 2024-11-01 10:45 | XMS_ITS | Encounter Summary ---
Author Organization [employer] Address 75 [facility] 7t [place] [address] Care Team Providers Care Halver 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 Name Role Phone Sariah Vickers Primary Care Provider [phone] Yuri Pierre PharmD Unavailable [phone] Basilio Hall MD Unavailable [phone] Ron Preciado MD Unavailable [phone] Reason for Visit * Reason Onset Date Comments Nurse Triage 12/24/2022 Encounter Details Date Type Department Care Team (Late st Contact Info) Description 12/24/2022 Telephone [facility] 230 [place] [address] Sariah Vickers ANP 230 [place] [address] Nurse Triage Social History Tobacco Use Types [...] - 12/24/2022 1:11 PM EST Called pt.via [employer] interpreter [phone] Benjamin. Pt. States that she wants to [...] regimen and possible referral to a new Mail Sorter due to pt. Not having jeremie in [...] accepted this outcome Please contact pt at [phone] documented in this encounter Plan of Treatment Upcoming Encounters Date Type Department Care Team (Late st Contact Info) Description 11/01/2024 2:45 PM EDT Office Visit [address] [address] Reta Sue MD [address] [place] [address] 11/05/2024 2:30 PM EDT Office Visit [address] [address] Hallie Tapia MD [address] [place] [address] 11/12/2024 9:30 AM EDT Clinical Support [address] [address] Azeb Hall RN 505 [place] [address] 01/11/2025 1:00 PM EST Office Visit [address] [address] Sariah Vickers ANP [address] [place] [address] 02/03/2025 11:00 AM EST Medication Management [address] [address] Yuri Pierre PharmD [address] [place] [address] documented as of this encounter Goals Goal [...] on filedocumented in this encounter Care Teams Halver 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 Relationship Specialty Start Date End Date Sariah Vickers ANP 230 [place] [address] PCP - General Family Medicine 09/23/19 Yuri Pierre, MikeD 230 [place] [address] Pharmacist Internal Medicine 05/05/24 Basilio Hall MD [address] [place] [address] Cardiology 05/17/24 Ron Preciado MD [address] [place] [address] [phone] Pulmonary Disease 05/17/24 documented as of this encounter
--- OUTSIDE RECORDS SUMMARY | 2024-11-01 10:45 | XMS_ITS | Encounter Summary ---
Author Organization [employer] Address 75 [facility] 7t [place] [address] Care Team Providers Care Juvenile Court Liaison Name Role Phone Sariah Vickers Primary Care Provider [phone] Yuri Pierre PharmD Unavailable [phone] Basilio Hall MD Unavailable [phone] Ron Preciado MD Unavailable [phone] Reason for Visit * Reason Onset Date Comments Nurse Triage 01/14/2023 Encounter Details Date Type Department Care Team (Late st Contact Info) Description 01/14/2023 Telephone [facility] 230 [place] [address] Sariah Vickers ANP 230 [place] [address] Nurse Triage Social History Tobacco Use Types [...] 01/14/2023 9:26 AM EST Called pt. Via [employer] shipping processor [phone] Kelly. Pt. States that she has been having a fire feeling in her legs. Its like A burning that goes down her legs . Pt. Unsure if it because of her Diabetes. Pt. Went [place] [facility] [place] [facility] [place] pain on [...] at 10am. Will send note to clinical patient care associate to have note put in chart . [...] Severe pain now, pt was seen [place] [facility] [place] [facility] [place] in leg. Pt is still symptomatic The caller accepted this outcome Please contact pt at [phone] (vp biology needed) documented in this encounter Plan of Treatment Upcoming Encounters Date Type Department Care Team (Late st Contact Info) Description 11/01/2024 2:45 PM EDT Office Visit [address] [address] Reta Sue MD [address] [place] [address] 11/05/2024 2:30 PM EDT Office Visit [address] [address] Hallie Tapia MD [address] [place] [address] 11/12/2024 9:30 AM EDT Clinical Support [address] [address] Azeb Hall, RN 505 [place] [address] 01/11/2025 1:00 PM EST Office Visit [address] [address] Sariah Vickers ANP [address] [place] [address] 02/03/2025 11:00 AM EST Medication Management [address] [address] Yuri Pierre, PharmD [address] [place] [address] documented as of this encounter Goals Goal [...] on filedocumented in this encounter Care Teams Juvenile Court Liaison Relationship Specialty Start Date End Date Sariah Vickers ANP 230 [place] [address] PCP - General Family Medicine 09/23/19 Yuri Pierre, MikeD 230 [place] [address] Pharmacist Internal Medicine 05/05/24 Basilio Hall MD 596 [place] [address] Cardiology 05/17/24 Ron Preciado MD [address] [place] [address] Pulmonary Disease 05/17/24 documented as of this encounter
--- OUTSIDE RECORDS SUMMARY | 2024-11-01 10:45 | XMS_ITS | Encounter Summary ---
Author Organization [employer] Address 75 [facility] 7t [place] [address] Care Team Providers Care Misdraw Hand Name Role Phone Sariah Vickers Primary Care Provider [phone] Yuri Pierre PharmD Unavailable [phone] Basilio Hall MD Unavailable [phone] Ron Preciado MD Unavailable [phone] Reason for Visit * Reason Onset Date Comments Med Refill 01/09/2024 Encounter Details Date Type Department Care Team (Late st Contact Info) Description 01/09/2024 Telephone [facility] MEDICINE 230 [place] [address] Sariah Vickers ANP 230 [place], [place] [phone] Med Refill Social History Tobacco Use Types [...] 11/01/2024 2:45 PM EDT Office Visit [address] [address] Reta Sue MD [address] [place] [address] 11/05/2024 2:30 PM EDT Office Visit [address] [address] Hallie Tapia MD [address] [place] [address] 11/12/2024 9:30 AM EDT Clinical Support [address] [address] Azeb Hall RN [address] [place] [address] 01/11/2025 1:00 PM EST Office Visit [address] [address] Sariah Vickers ANP [address] [place] [address] 02/03/2025 11:00 AM EST Medication Management [facility] 230 [place] [address] Yuri Pierre, PharmD 230 [place] [address] documented as of this encounter Goals Goal [...] documented as of this encounter Care Teams Misdraw Hand Relationship Specialty Start Date End Date Sariah Vickers ANP 230 [place] [address] PCP - General Family Medicine 09/23/19 Yuri Pierre, PharmD 230 [place] [address] Pharmacist Internal Medicine 05/05/24 Basilio Hall MD 596 [place] [address] Cardiology 05/17/24 Ron Preciado MD [address] [place] [address] Pulmonary Disease 05/17/24 documented as of this encounter
--- OUTSIDE RECORDS SUMMARY | 2024-11-01 10:45 | XMS_ITS | Encounter Summary ---
Author Organization [employer] Address 75 [facility] 7t [place] [address] Care Team Providers Care Axle Inspector Name Role Phone Sariah Vickers Primary Care Provider [phone] Yuri Pierre PharmD Unavailable [phone] Basilio Hall MD Unavailable [phone] Ron Preciado MD Unavailable [phone] Reason for Visit * Reason Comments Med Refill Encounter Details Date Type Department Care Team (Late st Contact Info) Description 02/28/2023 Refill [facility] MED[facility]INE 230 [place] [address] Sariah Vickers ANP 230 [place] [address] Cervicalgia Social History Tobacco Use Types Packs/Day [...] Description 11/01/2024 2:45 PM EDT Office Visit [address] [address] Reta Sue MD [address] [place] [address] 11/05/2024 2:30 PM EDT Office Visit [address] [address] Hallie Tapia MD [address] [place] [address] 11/12/2024 9:30 AM EDT Clinical Support [address] [address] Azeb Hall, MARTIN 505 [place] [address] 01/11/2025 1:00 PM EST Office Visit [address] [address] Sariah Vickers ANP [address] [place] [address] 02/03/2025 11:00 AM EST Medication Management [address] [address] Yuri Pierre, PharmD 230 [place] [address] documented as of this encounter Goals Goal Patient Goal Type Associated Problems Recent Progress Patient-Stated? Author Blood Pressure < 140/90 Blood Pressure 140/90(2024 1:50 PM EDT) No PhanisAida Cheng, PharmD Record Your Blood Sugar As Directed General No Phanis-Veronica Medinasa, PharmD Hemoglobin A1c < 7 Result Component 6.6( 1:54 PM EDT) No PhanisAida Cheng PharmD documented as of this encounter Visit Diagnoses Diagnosis Cervicalgia documented in this encounter Care Teams Axle Inspector Relationship Specialty Start Date End Date Sariah Vickers ANP 230 [place] [address] PCP - General Family Medicine 09/23/19 Yuri Pierre, PharmD 230 [place] [address] Pharmacist Internal Medicine 05/05/24 Basilio Hall MD 596 [place] [address] Cardiology 05/17/24 Ron Preciado MD [address] [place] [address] Pulmonary Disease 05/17/24 documented as of this encounter
--- OUTSIDE RECORDS SUMMARY | 2024-11-01 10:45 | XMS_ITS | Encounter Summary ---
Author Organization [employer] Address 75 [facility] 7t [place] [address] Care Team Providers Care Lace Paper 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 Name Role Phone Sariah Vickers Primary Care Provider [phone] Yuri Pierre PharmD Unavailable [phone] Basilio Hall MD Unavailable [phone] Ron Preciado MD Unavailable [phone] Reason for Visit * Reason Comments Med Refill Encounter Details Date Type Department Care Team (Late st Contact Info) Description 11/14/2023 Refill [facility] MEDICINE 230 [place] [address] Sariah Vickers ANP 230 [place] [address] Neck pain Social History Tobacco Use Types [...] Description 11/01/2024 2:45 PM EDT Office Visit [address] [address] Reta Sue MD [address] [place] [address] 11/05/2024 2:30 PM EDT Office Visit [address] [address] Hallie Tapia MD [address] [place] [address]65 11/12/2024 9:30 AM EDT Clinical Support [address] [address] Azeb Hall RN [address] [place] [address] 01/11/2025 1:00 PM EST Office Visit [address] [address] Sariah Vickers ANP [address] [place] [address] 02/03/2025 11:00 AM EST Medication Management [facility] MEDICINE 230 [place] [address] Yuri Pierre, PharmD 230 [place] [address] documented as of this encounter Goals Goal [...] documented as of this encounter Care Teams Lace Paper 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 Relationship Specialty Start Date End Date Sariah Vickers ANP 230 [place] [address] PCP - General Family Medicine 09/23/19 Yuri Pierre, PharmD [address] [place] [address] Pharmacist Internal Medicine 05/05/24 Basilio Hall MD 596 [place] [address] Cardiology 05/17/24 Ron Preciado MD [address] [place] [address] Pulmonary Disease 05/17/24 documented as of this encounter
--- OUTSIDE RECORDS SUMMARY | 2024-11-01 10:45 | XMS_ITS | Encounter Summary ---
Author Organization [employer] Address 75 [facility] 7t [place] [address] Care Team Providers Care Business Center Representative Name Role Phone Sariah Vickers Primary Care Provider [phone] Yuri Pierre PharmD Unavailable [phone] Basilio Hall MD Unavailable [phone] Ron Preciado MD Unavailable [phone] Reason for Visit * Reason Comments Med Refill Encounter Details Date Type Department Care Team (Late st Contact Info) Description 11/24/2023 Refill [facility] MEDICINE 230 [place] [address] Sariah Vickers ANP 230 [place] [address] Vertigo Social History Tobacco Use Types Packs/Day [...] Description 11/01/2024 2:45 PM EDT Office Visit [address] [address] Reta Sue MD [address] [place] [address] 11/05/2024 2:30 PM EDT Office Visit [address] [address] Hallie Tapia MD [address] [place] [address] 11/12/2024 9:30 AM EDT Clinical Support [address] [address] Azeb Hall RN [address] [place] [address] 01/11/2025 1:00 PM EST Office Visit [address] [address] Sariah Vickers ANP [address] [place] [address] 02/03/2025 11:00 AM EST Medication Management [facility] MED[facility]INE 230 [place] [address] Yuri Pierre, PharmD 230 [place] [address] documented as of this encounter Goals Goal [...] as of this encounter Care Teams Business Center Representative Relationship Specialty Start Date End Date Sariah Vickers ANP [address] [place] [address] PCP - General Family Medicine 09/23/19 Yuri Pierre, PharmD [address] [place] [address] Pharmacist Internal Medicine 05/05/24 Basilio Hall MD 5[address] [place] [address] Cardiology 05/17/24 Ron Preciado MD [address] [place] [address] Pulmonary Disease 05/17/24 documented as of this encounter
--- OUTSIDE RECORDS SUMMARY | 2024-11-01 10:45 | XMS_ITS | Clinical Summary ---
Author Organization [facility] Address [address] [place] [address] Phone Care Team Providers Care Scraper Loader Operator Name Role Phone Sariah Vickers NP Primary Care Provider [phone] Social History Tobacco Use Types Packs/Day Years [...] age to complete this topic Care Teams Scraper Loader Operator Relationship Specialty Start Date End Date Sariah Vickers NP [address] [place] [phone] PCP - General 12/03/23
--- OUTSIDE RECORDS SUMMARY | 2024-11-01 10:45 | XMS_ITS | Encounter Summary ---
Author Organization [employer] Address [address] [facility] 7t [place] [address] Care Team Providers Care Doll Wig Hackler Name Role Phone Sariah Vickers Primary Care Provider [phone] Yuri Pierre PharmD Unavailable [phone] Basilio Hall MD Unavailable [phone] Ron Preciado MD Unavailable [phone] Reason for Visit * Reason Comments Med Refill Encounter Details Date Type Department Care Team (Late st Contact Info) Description 01/06/2024 Refill [facility] [address] [place] [address] Sariah Vickers ANP [address] [place] [address] Cervicalgia Social History Tobacco Use Types Packs/Day [...] Description 11/01/2024 2:45 PM EDT Office Visit [address] [address] Reta Sue MD [address] [place] [address] 11/05/2024 2:30 PM EDT Office Visit [address] [address] Hallie Tapia MD [address] [place] [address] 11/12/2024 9:30 AM EDT Clinical Support [address] [address] Azeb Hall RN [address] [place] [address] 01/11/2025 1:00 PM EST Office Visit [address] [address] Sariah Vickers ANP [address] [place] [address] 02/03/2025 11:00 AM EST Medication Management [facility] MEDICINE [address] [place] [address] Yuri Pierre, MikeD [address] [place] [address] documented as of this encounter Goals Goal Patient Goal Type Associated Problems Recent Progress Patient-Stated? Author Blood Pressure < 140/90 Blood Pressure 140/90(2024 1:50 PM EDT) No Phanis-Gambl Aida urbina, PharmD Record Your Blood Sugar As Directed General No Phanis-GambAida buck PharmD Hemoglobin A1c < 7 Result Component 6.6( 1:54 PM EDT) No Phanis-Dileepl Aida urbina PharmD documented as of this encounter Visit Diagnoses Diagnosis Cervicalgia documented in this encounter Additional Health Concerns Assessment Noted Time PHQ-9 Depression Total Score: 024 2:58 PM EDT documented as of this encounter Care Teams Doll Wig Hackler Relationship Specialty Start Date End Date Sariah Vickers ANP [address] [place] [address] PCP - General Family Medicine 09/23/19 Yuri Pierre, PharmD [address] [place] [address] Pharmacist Internal Medicine 05/05/24 Basilio Hall MD [address] [place] [address] Cardiology 05/17/24 Ron Preciado MD [address] [place] [address] Pulmonary Disease 05/17/24 documented as of this encounter
--- OUTSIDE RECORDS SUMMARY | 2024-11-01 10:45 | XMS_ITS | Encounter Summary ---
Author Organization [employer] Address [address] [facility] 7t [place] [address] Care Team Providers Care Head Animal Trainer Name Role Phone Sariah Vickers Primary Care Provider [phone] Yuri Pierre PharmD Unavailable [phone] Basilio Hall MD Unavailable [phone] Ron Preciado MD Unavailable [phone] Reason for Visit * Reason Comments Med Refill Encounter Details Date Type Department Care Team (Late st Contact Info) Description 12/27/2022 Refill [facility] [address] [place] [address] Sariah Vickers ANP [address] [place] [address] Neck pain Social History Tobacco Use Types [...] Description 11/01/2024 2:45 PM EDT Office Visit [address] [address] Reta Sue MD [address] [place] [address] 11/05/2024 2:30 PM EDT Office Visit [address] [address] Hallie Tapia MD [address] [place] [address] 11/12/2024 9:30 AM EDT Clinical Support [address] [address] Azeb Hall, MARTIN [address] [place] [address] 01/11/2025 1:00 PM EST Office Visit [address] [address] Sariah Vickers ANP [address] [place] [address] 02/03/2025 11:00 AM EST Medication Management [address] [address] Yuri Pierre, PharmD [address] [place] [address] documented as of this encounter Goals Goal Patient Goal Type Associated Problems Recent Progress Patient-Stated? Author Blood Pressure < 140/90 Blood Pressure 140/90(2024 1:50 PM EDT) No Phanis-Aida Medina, PharmD Record Your Blood Sugar As Directed General No Piers-Gambl Veronica urbinasa, PharmD Hemoglobin A1c < 7 Result Component 6.6( 1:54 PM EDT) No PiersAida Cheng PharmD documented as of this encounter Visit Diagnoses Diagnosis Neck pain Cervicalgia documented in this encounter Care Teams Head Animal Trainer Relationship Specialty Start Date End Date Sariah Vickers ANP [address] [place] [address] PCP - General Family Medicine 09/23/19 Yuri Pierre, PharmD [address] [place] [address] Pharmacist Internal Medicine 05/05/24 Basilio Hall MD [address] [place] [address] Cardiology 05/17/24 Ron Preciado MD [address] [place] [address] Pulmonary Disease 05/17/24 documented as of this encounter
--- OUTSIDE RECORDS SUMMARY | 2024-11-01 10:45 | XMS_ITS | Encounter Summary ---
Author Organization [employer] Address [address] [facility] 7t [place] [address] Care Team Providers Care Automotive Service Assistant Name Role Phone Sariah Vickers Primary Care Provider [phone] Yuri Pierre PharmD Unavailable [phone] Basilio Hall MD Unavailable [phone] Ron Preciado MD Unavailable [phone] Reason for Visit * Reason Comments Med Refill Encounter Details Date Type Department Care Team (Late st Contact Info) Description 12/17/2023 Refill [facility] [address] [place] [address] Sariah Vickers ANP [address] [place] [address] Chronic SI joint pain Social History Tobacco [...] 11/01/2024 2:45 PM EDT Office Visit [address] [address] Reta Sue MD [address] [place] [address] 11/05/2024 2:30 PM EDT Office Visit [address] [address] Hallie Tapia MD [address] [place] [address] 11/12/2024 9:30 AM EDT Clinical Support [address] [address] Azeb Hall RN [address] [place] [address] 01/11/2025 1:00 PM EST Office Visit [address] [address] Sariah Vickers ANP [address] [place] [address] 02/03/2025 11:00 AM EST Medication Management [facility] [address] [place] [address] Yuri Pierre, PharmD [address] [place] [address] documented as of this encounter Goals Goal [...] as of this encounter Care Teams Automotive Service Assistant Relationship Specialty Start Date End Date Sariah Vickers ANP [address] [place] [address] PCP - General Family Medicine 09/23/19 Yuri Pierre, PharmD [address] [place] [address] Pharmacist Internal Medicine 05/05/24 Basilio Hlal MD [address] [place] [address] Cardiology 05/17/24 Ron Preciado MD [address] [place] [address] Pulmonary Disease 05/17/24 documented as of this encounter
--- OUTSIDE RECORDS SUMMARY | 2024-11-01 10:45 | XMS_ITS | Clinical Summary ---
Author Organization [employer] Address [address] [place] [address] Care Team Providers Care Trestleman Name Role Phone Anthony Ruiz KAYLEE Primary Care Provider [phone] Yuri Pierre PharmD Unavailable [phone] Basilio Hall MD Unavailable [phone] Ron Preciado MD Unavailable [phone] Allergies Active Allergy Reactions Criticality Noted [...] mouth in the morning. Active Lactobacillus-In ulin ([facility] FlowBelow Aero [facility]) capsule 023 Active Xolair [...] (six) hours during the day. 025 Active BD Pen Needle Lorna U/F 32G X 4 MM miscIndications: Type 2 diabetes mellitus with hyperlipidemia (CMS/HCC) ([facility]) USE DIRECTED THREE TIMES DAILY 100 [...] 90 tablet 4 025 Active Continuous Glucose Interactive Multimedia Designer (FreeStyle Jalil 3 [place]) device 1 each Once per day. Use as directed for CGM 1 each 025 Active Continuous Glucose Sensor (FreeStyle Jalil 3 Plus Sensor) misc 1 each every 15 days. Apply 1 every 15 days as directed for CGM 2 each 11 Active Sodium Fluoride (PreviDent 5000 Booster Plus) 1.1 % paste Apply 1 Application. to teeth 2 times daily. 112 g 3 025 Active Ketotifen Fumarate ( Ketotifen Fumarate) 0.035 % solutionIndicati ons:Allergic conjunctivitis of both eyes Administer 1 drop into affected eye(s) 2 times daily. 10 mL 5 025 Active semaglutide (Ozempic) 2 MG/1.5ML solution pen-injectorIndi cations:Type 2 diabetes mellitus with hyperlipidemia ([facility]/HCC) ([facility]) Inject 0.5 mg under the skin 1 (one) time per week. 1 each 025 Active insulin lispro (HumaLOG KWIKPEN) 100 UNIT/ML injectionIndicat ions:Type 2 diabetes mellitus with hyperlipidemia (CMS/HCC) ([facility]) Take 4-6 units as needed if BG high while taking prednisone; As needed as directed by provider 6 mL 1 025 Active hydrocortisone (Anusol-HC) 2.5 % rectal cream APPLY 1 APPLICATORFUL RECTALLY TWICE DAILY FOR FOR HEMORRHOIDS Active busPIRone (Buspar) 15 MG tablet Take 1 tablet by mouth every 6 (six) hours during the day. 05/22/2 025 Active glucagon (Baqsimi Two Pack) 3 MG/DOSE nasal powderIndication s:Type 2 diabetes mellitus with diabetic neuropathy, with long-term current use of insulin ([facility]) Administer 3 mg into affected nostril(s) [...] miscIndications: Type 2 diabetes mellitus with hyperglycemia ([facility]) TEST BLOOD SUGAR FOUR TIMES DAILY 200 each 025 Active enalapril (Vasotec) 20 MG tabletIndication s:Essential hypertension TAKE 1 TABLET BY MOUTH EVERY MORNING 30 tablet 025 Active Fluticasone-Salm eterol 250-50 MCG/ACT aerosol powderIndication s:Severe persistent asthma without complication INHALE 1 PUFF BY MOUTH TWICE DAILY, RINSE MOUTH AFTER USING. 60 each 025 Active gabapentin (Neurontin) 400 MG capsuleIndicatio ns:Chronic SI joint pain TAKE 1 CAPSULE BY MOUTH AT BEDTIME 30 capsule 025 Active Glutose 15 40 % gel oral gel TAKE 15 GRAM BY MOUTH DIRECTED FOR LOW BLOOD SUGAR 025 Active ipratropium-albu terol (Duo-Neb) 0.5-2.5 mg/3 mL nebulizer solutionIndicati ons:Severe persistent asthma without complication INHALE AMPULE USING A NEBULIZER EVERY 6 HOURS NEEDED 90 mL 025 Active traMADol (Ultram) 50 MG tabletIndication s:Cervicalgia TAKE 1 TABLET BY MOUTH TWICE DAILY IN THE MORNING AND AT BEDTIME NEEDED FOR SEVERE PAIN 60 tablet 025 Active fluticasone (Flonase) 50 MCG/ACT nasal spray INSTILL 2 SPRAYS IN EACH NOSTRIL ONCE DAILY IN THE MORNING 16 g 3 025 Active potassium chloride CR (Klor-Con M20) 20 MEQ ER tablet TAKE 1 TABLET BY MOUTH TWICE DAILY IN THE MORNING AND IN THE EVENING 180 tablet 1 Active acetaminophen (Tylenol) 325 MG tabletIndication s:Neck pain TAKE 1 TO 2 TABLETS BY MOUTH EVERY 6 HOURS NEEDED 120 tablet 025 Active glucose blood (FREESTYLE LITE) test strip 1 strip at bed time. 022 2024 Discontinued(M ed list cleanup (will not trigger notification to Pharmacy)) potassium chloride CR (Klor-Con M20) 20 MEQ ER tablet TAKE 1 TABLET BY MOUTH TWICE DAILY IN THE MORNING AND IN THE EVENING 180 tablet 1 025 2024 Discontinued(R eorder (will not trigger notification to Pharmacy)) ipratropium-albu terol (Duo-Neb) 0.5-2.5 mg/3 mL nebulizer solutionIndicati ons:Severe persistent asthma without complication INHALE 1 AMPULE USING A NEBULIZER EVERY 6 HOURS NEEDED 90 mL 5 025 2024 Discontinued fluticasone (Flonase) 50 MCG/ACT nasal spray INSTILL 2 SPRAYS IN EACH NOSTRIL ONCE DAILY IN THE MORNING 16 g 3 025 2024 Discontinued predniSONE (Deltasone) 20 MG [...] cleanup (will not trigger notification to Pharmacy)) acetaminophen (Tylenol) 325 MG tabletIndication s:Neck pain TAKE 1 TO 2 TABLETS BY MOUTH EVERY 6 HOURS NEEDED 120 tablet 025 2024 Discontinued traMADol (Ultram) 50 [...] is currently connected with MH services through [facility]. Pt needing additional support due [...] her family. She will continue services with [facility] for OP therapy and psychiatry services. clinician will be available if needed during next medical appointment. PLAN: (check all that apply) Continue with current services (defined as services in the past 12 months) . Pt is engaged with OP therapy and psychiatry services with [facility] @ [facility] Excessive attrition of teeth, generalized 2023 [...] her family. She will continue services with [facility] for OP therapy and psychiatry services. clinician will be available if needed during next medical appointment. PLAN: (check all that apply) Continue with current services (defined as services in the past 12 months) . Pt is engaged with OP therapy and psychiatry services with [facility] @ [facility] Fibromyalgia 07/31/2022 Asthma-COPD overlap syndrome 07/31/2022 [...] for possible plantar fasciitis -referred today to data control assistant x ongoing discomfort -may need orthopedic shoes [...] individual therapy and psychiatry with N at [facility]. Sees psych provider every two months [...] manner PLAN: 1. Follow up with [facility]: Not recommended for follow-up 2. Patient goal is: reduce anxiousness 3. Behavioral Recommendations a. Patient will comply with medication b. Patient may request to speak with a [facility] during next PCP visit, if [...] organization. Date Type Department Care Team Description 10/29/2024 Refill [facility] [address] [place] [address] Anthony Ruiz ANP Neck pain 10/26/2024 Results Follow-Up [facility] [address] [place], [place] [phone] Anthony Ruiz ANP Thyroid Peroxidase Antibodies, Cardiolipin Antibodies (IgA,IgG,IgM) 10/25/2024 Refill [facility] [address] [place], [place] [phone] Anthony Ruiz ANP 10/23/2024 Refill [facility] [address] [place], [place] [phone] Anthony Ruiz ANP 10/22/2024 Orders Only GENERIC EXTERNAL DATA DEPARTMENT Provider, Generic External Data 10/20/2024 Results Follow-Up [facility] [address] [place] [address] Anthony Ruiz ANP Prothrombin Time-INR, C-reactive Protein, Amylase, Additional followed-up results: 7 10/19/2024 Refill [facility] [address] [place] [address] Anthony Ruiz ANP Cervicalgia 10/14/2024 1:30 PM EDT Office Visit [facility] [address] [place] [address] Anthony Ruiz ANP Type 2 diabetes mellitus with hyperlipidemia (CMS/HCC) (CMS/HCC) (Primary Dx); Chronic pain of both knees; Chronic SI joint pain; Primary osteoarthritis of both knees; Essential hypertension; Long-term current use of opiate analgesic; OKEEFE (nonalcoholic steatohepatitis); Asthma-COPD overlap syndrome (CMS/HCC) 10/14/2024 Travel 10/13/2024 10:40 AM EDT Office Visit [facility] [address] [place] [phone] Chava Presley MD Essential hypertension (Primary Dx) 10/13/2024 Travel 10/12/2024 Orders Only GENERIC EXTERNAL DATA DEPARTMENT Provider, Generic External Data 10/09/2024 Refill [facility] [address] [place] [phone] Anthony Ruiz ANP Severe persistent asthma without complication 10/06/2024 Travel 10/04/2024 Refill [facility] [address] [place] [address] Zakia Uriostegui NP Type 2 diabetes mellitus with hyperglycemia (CMS/HCC) 10/01/2024 11:00 AM EDT Clinical Support [facility] [address] [place] [address] Azeb Hall, RN Neck pain 10/01/2024 Telephone [facility] [address] [place] [address] Azeb Hall RN 10/01/2024 Travel 09/30/2024 Telephone [facility] [address] [place] [address] Anthony Ruiz ANP Referral 09/30/2024 Telephone [facility] [address] [place] [address] Anthony Ruiz ANP Referral 09/30/2024 Refill [facility] [address] [place] [phone] Anthony Ruiz ANP Chronic SI joint pain 09/28/2024 Orders Only [facility] [address] [place] [phone] Anthony Ruiz ANP 09/25/2024 Refill [facility] [address] [place] [phone] Anthony Ruiz ANP Chronic SI joint pain; Essential hypertension; Severe persistent asthma without complication 09/24/2024 2:00 PM EDT Office Visit [facility] [address] [place] [phone] Juan, Luisa, OD Diabetes type 2, no ocular involvement (CMS/HCC) (Primary Dx); Mixed type age-related cataract, both eyes; Lesion of left lower eyelid; Presbyopia 09/24/2024 Travel 09/19/2024 Refill [facility] [address] [place] [address] Debra Faye MD Cervicalgia 09/16/2024 Refill [facility] [address] [place] [address] Zakia Uriostegui NP Type 2 diabetes mellitus with hyperglycemia (CMS/HCC); Neck pain 09/03/2024 Telephone [facility] [address] [place] [phone] Anthony Ruiz ANP Appointment Request 09/02/2024 Telephone [facility] [address] [place] [phone] Anthony Ruiz ANP Durable Medical Equipment 08/26/2024 Telephone [facility] [address] [place] [phone] Anthony Ruiz ANP Durable Medical Equipment 08/23/2024 Refill [facility] [address] [place] [address] Anthony Ruiz ANP Type 2 diabetes mellitus with hyperglycemia (CMS/HCC) 08/21/2024 Refill [facility] [address] [place] [address] Anthony Ruiz ANP Cervicalgia; Chronic bilateral low back pain, unspecified whether sciatica present 08/20/2024 Refill [facility] [address] [place] [address] Anthony Ruiz ANP Chronic bilateral low back pain, unspecified whether sciatica present 08/19/2024 9:00 AM EDT Office Visit [facility] [address] [place] [address] Ramon Damon MD Viral URI with cough 08/16/2024 [facility] [address] [address] Debra Faye MD Neck pain 08/13/2024 Orders Only [address] [address] Leora Hoffman RN 08/11/2024 4:00 PM EDT [facility] [address] [address] Brittney Nava MD Constipation, unspecified constipation type (Primary Dx) 08/11/2024 Travel 08/10/2024 Telephone [facility] [address] [place] [address] Anthony Ruiz ANP Prior Authorization 08/04/2024 1:00 PM EDT Office Visit [facility] [address] [place] [address] Nuvia Duarte Dental plaque (Primary Dx); Gingival recession, generalized; Missing teeth, acquired; Excessive attrition of teeth, generalized 08/04/2024 Travel 08/02/2024 Telephone [facility] [address] [place] [phone] Anthony Ruiz ANP Referral from Last 3 Months Immunizations Immunization Administration [...] Description 11/01/2024 2:45 PM EDT Office Visit [facility] [address] [place] [address] Reta Sue MD [address] [place] [phone] 11/05/2024 2:30 PM EDT Office Visit [facility] [address] [place] [address] Hallie Tapia MD [address] [place] [phone] 11/12/2024 9:30 AM EDT Clinical Support [address] [address] Azeb Hall, RN [address] [place] [address] 01/11/2025 1:00 PM EST Office Visit [address] [address] Anthony Ruiz, ANP [address] [place] [address] 02/03/2025 11:00 AM EST Medication Management [address] [address] Yuri Pierre, PharmD [address] [place] [phone] Health Maintenance Due Date Last Done Comments [...] 2025 08/05/19 25, 09/12/2023, 08/12/2022 Tobacco Screening 10/26/2025 10/26/2024 Dental X-Ray: Full Mouth 09/12/2026 09/12/2023, 09/18 [...] Procedure Name Priority Date/Time Associated Diagnosis Comments LUPUS ANTICOAGULANT EVALUATION WITH REFLEX Routine 10/22/2024 10:49 AM EDT [id number] I ANTIBODIES (IGG, IGA, IGM) Routine 10/22/2024 10:49 AM EDT ACTIN (SMOOTH MUSCLE) ANTIBODY (IGG) Routine 10/22/2024 10:49 AM EDT CARDIOLIPIN AB (IGA,IGG,IGM) Routine 10/22/2024 10:49 AM EDT THYROID PEROXIDASE ANTIBODIES Routine 10/22/2024 10:49 AM EDT POCT GLYCATED HEMOGLOBIN, TOTAL Routine 10/14/2024 1:54 PM EDT Type 2 diabetes mellitus with hyperlipidemia (CMS/HCC) (CMS/[facility]) POCT GLUCOSE Routine 10/14/2024 1:52 PM EDT Type 2 diabetes mellitus with hyperlipidemia (CMS/HCC) (CMS/HCC) REX SCREEN, IFA, W/REFL TITER AND PATTERN [...] teeth, acquired Excessive attrition of teeth, generalized LIPID PANEL, STANDARD Routine 06/18/2024 10:18 AM [...] Recently Relevant to Health Maintenance Results * Lfva-0-Gifoaopvelsk I Antibodies (IgG, IgA, IgM) (10/22/2024 10:49 AM EDT) B2 Glycoprotein I IgG Antibody <2.0 <20.0 U/mL [facility] Comment:Value Interpretation ----- < 20.0 Antibody not detected> or = 20.0 Antibody detected B2 Glycoprotein I IgM Antibody <2.0 <20.0 U/mL [facility] Comment:Value Interpretation ----- < 20.0 Antibody not detected> or = 20.0 Antibody detected B2 Glycoprotein I IgA Antibody <2.0 <20.0 U/mL [facility] Comment: Value Interpretation----- < 20.0 Antibody not detected> or = 20.0 Antibody detectedThe antiphospholipid antibody syndrome (APS) is aclinical- pathologic correlation that includes aclinical event (e.g. arterial or venous thrombosis, morbidity) and persistent positiveantiphospholipid antibodies (IgM, IgG Cardiolipin [id number] antibodies greater than the 99th percentile;or a lupus anticoagulant). International consensusguidelines for APS suggest waiting at least 12 weeksbefore retesting to confirm antibody persistence.The Systemic Lupus International Collaborating Clinicsimmunological classification criteria for systemiclupus erythematosus (SLE) include testing forisotype IgA, which has yet to be incorporated intoAPS criteria. Low level antiphospholipid antibodiesmay sometimes be detected in the setting of infection,drug therapy or aging.For additional information, please refer tohttp://education.VidaPak/faq/POA203(This link is being provided for informational/educational purposes only.)THIS TEST WAS PERFORMED AT:[facility]/[id number] [place] [address]DXJLGHODEAN CASAS MD,PHD 10/22/2024 10:4 9 AM EDT 10/22/2024 10:49 AM EDT Generic External Data Provider LAB BLOOD ORDERAB LES Final Result Performing Organization Address [facility] Co de Phone Number [facility] [address] [place] [phone] * (ABNORMAL) Thyroid Peroxidase Antibodies (10/22/2024 10:49 AM EDT) Thyroid Peroxidase Antibodies >900(A) <9 IU/mL [facility] Comment:THIS TEST WAS PERFOR MED AT:[facility] [address] [address]GASULHERNAN WARREN MD 10/22/2024 10:4 9 AM EDT 10/22/2024 10:49 AM EDT Generic External Data Provider LAB BLOOD ORDERAB LES Final Result Performing Organization Address [facility] de Phone Number [facility] [address] [place] [phone] * (ABNORMAL) Actin (Smooth Muscle) Antibody (IgG) (10/22/2024 10:49 AM EDT) Only the most recent of2 resultswithin the time period is included. Smooth Muscle Antibody 47(A) <20 U [facility] Comment:Reference Range: <20 U: Negative>or=20 [...] with AIH type 1.THIS TEST WAS PERFORMED AT:[facility]/[id number] [place] [address]DJUQIMGDEAN CASAS MD,PHD 10/22/2024 10:4 9 AM EDT 10/22/2024 10:49 AM EDT us Generic External Data Provider LAB BLOOD ORDERAB LES Final Result Performing Organization Address [facility] de Phone Number [facility] [address] [place] [phone] * Lupus Anticoagulant Evaluation with Reflex (10/22/2024 10:49 AM EDT) Lupus Interpretation see note [facility] Comment:A Lupus Anticoagulan t is not detected.Reference Range: Not DetectedFor additional information, please refer tohttp://education.VidaPak/faq/LCJ63k9(This link is being provided for informational/educational purposes only.)This interpretation is based on the following testresults. PTT (LAC) Screen 33 <=40 sec [facility] DRVVT Screen 35 <=45 sec [facility] Comment:THIS TEST WAS PERFOR MED AT:[id number] [place] [address]CNWDOOADEAN CASAS MD,PHD dRVVT Confirmation [facility] dRVVT 1:1 Mix [facility] DRVVT 1:1 Mix Interpretation [facility] Hexagonal Phase Neutralization [facility] Thrombin Clotting Time [facility] 10/22/2024 10:4 9 AM EDT 10/22/2024 10:49 AM EDT us Generic External Data Provider LAB BLOOD ORDERAB LES Final Result Performing Organization Address [facility] Co de Phone Number [facility] [address] [place] [phone] * Cardiolipin Antibodies (IgA,IgG,IgM) (10/22/2024 10:49 AM EDT) Cardiolipin Antibody (IgG) <2.0 GPL-U/mL [facility] Comment:Value Interpretation ----- < 20.0 Antibody not detected> or = 20.0 Antibody detected Cardiolipin Antibody (IgM) <2.0 MPL-U/mL [facility] Comment: Value Interpretation----- < 20.0 Antibody not detected> or = 20.0 Antibody detectedThe antiphospholipid antibody syndrome (APS) is aclinical- pathologic correlation that includes aclinical event (e.g. arterial or venous thrombosis, morbidity) and persistent positiveantiphospholipid antibodies (IgM, IgG Cardiolipin [id number] antibodies greater than the 99th percentile; ora lupus anticoagulant). International consensusguidelines for APS suggest waiting at least 12 weeksbefore retesting to confirm antibody persistence.The Systemic Lupus International CollaboratingClinics immunological classification criteria forsystemic lupus erythematosus (SLE) include testing forisotype IgA, which has yet to be incorporated intoAPS criteria. Low level antiphospholipid antibodiesmay sometimes be detected in the setting of infection,drug therapy or aging.For additional information, please refer tohttp://education.VidaPak/faq/DHQ227(This link is being provided for informational/educational purposes only.)THIS TEST WAS PERFORMED AT:[facility] [place] [phone] WARREN MD 10/22/2024 10:4 9 AM EDT 10/22/2024 10:49 AM EDT us Generic External Data Provider LAB BLOOD ORDERAB LES Final Result [facility] [address] [place] [phone] * (ABNORMAL) POCT HGB A1C (10/14/2024 1:54 PM EDT) Hemoglobin A1C 6.6(A) 4.0 - 5.7 % QC Media Lot # [id number] Lot# Expiration Date Blood 10/14/2024 1:54 PM EDT Anthony Ruiz ANP POINT OF CARE TEST ENTER/EDIT OR DERABLES Final Result * POCT Glucose (10/14/2024 1:52 PM EDT) Glucose Blood, POC 121 60 - 200 mg/dL QC Media Lot # [id number] Lot# Expiration Date [id number] Blood Capillary blood specimen / Unknown 10/14/2024 1:52 PM EDT Anthony Ruiz ANP POINT OF CARE TEST ENTER/EDIT OR DERABLES Final Result * (ABNORMAL) TSH with Reflex to Free T4 (10/12/2024 2:10 PM EDT) TSH reflex Free T4 6.80(H) 0.32 - 4.0 uIU/mL [facility] 10/12/2024 2:10 PM EDT 10/12/2024 2:10 PM EDT [facility] External Data Provider LAB BLOOD ORDERAB LES Final Result [facility] [address] [place] [address] [phone] * Prothrombin Time-INR (10/12/2024 2:10 PM EDT) Prothrombin Time 10.9 10.9 - 12.4 SEC [facility] INTERNATIONAL NORM RATIO 1.0 0.9 - 1.1 [facility] Comment:INTERNATIONAL NORMAL IZED RATIO (INR) [...] LES Final Result Performing Organization Address [facility]/ZIP Co de Phone Number [facility] [address] [place] [phone] * C-reactive Protein (10/12/2024 2:10 PM EDT) C Reactive Protein 0.31 < or = 0.50 mg/dL [facility] 10/12/2024 2:10 PM EDT 10/12/2024 2:10 PM EDT Generic External Data Provider LAB BLOOD ORDERAB LES Final Result Performing Organization Address [facility] de Phone Number [facility] [address] [place] [phone] * (ABNORMAL) REX Screen,IFA, with Reflex to Titer and Pattern (10/12/2024 2:10 PM EDT) Pathologist [facility] Anti Nuclear Antibody Screen POSITIV E(A) NEGATIVE [facility] Comment:REX IFA is a first l ine screen for detecting thepresence of up to approximately 150 autoantibodies invarious autoimmune diseases. A positive REX IFA resultis suggestive of autoimmune disease and reflexes totiter and pattern. Further laboratory testing may beconsidered if clinically indicated.For additional information, please refer tohttp://education.Eventful/faq/OZA129(This link is being provided for informational/educational purposes only.)THIS TEST WAS PERFORMED AT:[facility] [place] [phone] WARREN MD REX Titer 1:1280( A) titer [facility] Comment:Reference Range <1:4 0 Negative 1:40-1:80 Low Antibody Level >1:80 Elevated Antibody Level REX Pattern Nuclear , Homogen eous(A) [facility] Comment:Homogeneous pattern is associated with systemic lupuserythematosus (SLE), drug-induced lupus and juvenileidiopathic arthritis.AC-1: HomogeneousInternational Consensus on REX Patterns(https://doi.org/10.1515/whda-5589-6285)THIS TEST WAS PERFORMED AT:[facility] [place] [phone]- [phone] WARREN MD REX TITER 2 ([facility] LAB) [facility] 2 [facility] TITER 3 [facility] REX PATTERN 3 [facility] 10/12/2024 2:10 PM EDT 10/12/2024 2:10 PM EDT Generic External Data Provider LAB BLOOD ORDERAB LES Final Result Performing Organization Address [facility] de Phone Number [facility] [address] [place] [phone] * T4, Free (10/12/2024 2:10 PM EDT) Free T4 (Free Thyroxine) 0.99 0.71 - 1.85 ng/dL [facility] 10/12/2024 2:10 PM EDT 10/12/2024 2:10 PM EDT us Generic External Data Provider LAB BLOOD ORDERAB LES Final Result Performing Organization Address [facility]/ZIP Co de Phone Number [facility] [address] [place] [phone] * Lipase (10/12/2024 2:10 PM EDT) Lipase 20 8 - 78 U/L [facility] 10/12/2024 2:10 PM EDT 10/12/2024 2:10 PM EDT Generic External Data Provider LAB BLOOD ORDERAB LES Final Result Performing Organization Address [facility] [facility] Co de Phone Number [facility] [address] [place] [phone] * (ABNORMAL) Hemoglobin A1c (10/12/2024 2:10 PM EDT) Hemoglobin A1c 6.5(H) <6.0 % [facility] Comment:Hemoglobin A1C Refer ence Range Adults: 4.8 - 6.0 % Non diabetic: < 6.0 % Goal: < 7.0 %Additional Action Suggested: > 8.0 %Note: Hemoglobin A1c results are invalid for patients with abnormal amounts of HbF. Blood transfusions may impact the HbA1c concentration in the patient sample. Estimated Average Glucose 140 mg/dL [facility] Comment:eAG = Estimated ave rage glucose which is %A1C expressed asaverage glucose, using the formula of the B8E-CpmepueAzqstvc Glucose study (ADAG), Diabetes Care, Vol.31,#8,2007 10/12/2024 2:10 PM EDT 10/12/2024 2:10 PM EDT Generic External Data Provider LAB BLOOD ORDERAB LES Final Result Performing Organization Address [facility] Co de Phone Number [facility] [address] [place] [phone] * Ferritin (10/12/2024 2:10 PM EDT) Ferritin 69 10 - 250 ng/mL [facility] 10/12/2024 2:10 PM EDT 10/12/2024 2:10 PM EDT Generic External Data Provider LAB BLOOD ORDERAB LES Final Result Performing Organization Address [facility] Co de Phone Number [facility] [address] [place] [address] [phone] * Amylase (10/12/2024 2:10 PM EDT) Amylase 36 28 - 100 U/L [facility] 10/12/2024 2:10 PM EDT 10/12/2024 2:10 PM EDT us Generic External Data Provider LAB BLOOD ORDERAB LES Final Result Performing Organization Address City/State/[facility] Co de Phone Number [facility] [address] [place] [phone] * CT Lung Screening Low dose (10/09/2024 1:18 PM EDT) Anatomical Region Laterality Modality Lung Computed Tomogra phy 10/09/2024 1:18 PM EDT Narrative 10/09/2024 1:20 PM EDT [address] [address] [address] Scan Report Signed Patient: Nuvia Fay MR #: [id number] : 1960 Acct:[id number] Age/Sex: 64 / F ADM Date: 10/08/24 Loc: HO.CT Attending Dr: Ron Preciado MD Ordering Physician: Ron Preciado MD Date of Service: 10/08/24 Procedure(s): CT lung screening Accession Number(s): [id number] cc: Ron Preciado MD; ANTHONY RUIZ NP Report Number: [id number]: Total DLP = 64.00 mGy-cm CLINICAL HISTORY: [...] 10/09/24 1319 DD/ 1318 TD/TT: 10/09/24 1318 Missile Control Pilot: Procedure Note Donotuseinterpreter, Image - 10/09/[address] [address] [address] Scan Report Signed Patient: Nuvia Fay EMR #: [id number] : 1960cct:[id number] Age/Sex: 64 / FADM Date: 10/08/24 Loc: .CT Attending Dr: Ron Preciado MD Ordering Physician: Ron Preciado MD Date of Service: 10/08/24 Procedure(s): CT lung screening Accession Number(s): [id number] cc: Ron Preciado MD; ANTHONY RUIZ NP Report Number: [id number]: Total DLP = 64.00 mGy-cm CLINICAL HISTORY: [...] document has been electronically signed by: Ligia Agrueta MD on 10/09/2024 13:18:52 Dictated By: Ligia Myrick MD Signed By: <Electronically signed by Ligia Myrick MD in OV> 10/09/24 1319 DD/ 1318 TD/TT: 10/09/24 1318 Missile Control Pilot: [facility] External Provider IMG CT PROCEDURES [...] - 10/01/2024 10:43 AM EDT .UTOX cup Lot#[id number] Exp. 11/23/25 Internal Pass Control Anthony PAGE POINT OF CARE TEST ENTER/EDIT OR DERABLES Final Result * Influenza A (ID NOW Rapid Molecular) (08/19/2024 9:20 AM EDT) Pathologist [facility] Influenza A Negative Negative, Indeterminate [facility] Swab 08/19/2024 9:20 AM EDT Ramon Damon MD POINT OF CARE TEST ENTER/EDIT OR DERABLES Final Result Performing Organization Address City/State/[facility] Co de Phone Number [facility] [address] [place] [phone] * Influenza B (ID NOW Rapid Molecular) (08/19/2024 9:19 AM EDT) Pathologist [facility] Influenza B Negative Negative, Indeterminate [facility] Swab 08/19/2024 9:19 AM EDT Ramon Damon MD POINT OF CARE TEST ENTER/EDIT OR DERABLES Final Result [facility] [address] [place] [phone] [phone] * POCT Rapid COVID Ag (08/19/2024 9:11 AM EDT) Rapid COVID Ag Negative Swab 08/19/2024 9:11 AM EDT Result [facility] Ramon Damon MD POINT OF CARE TEST ENTER/EDIT OR DERABLES Final Result * (ABNORMAL) Syphilis Antibodies (DPH) (08/06/2024) Pathologist [facility] Syphilis Abs Reactive(A) Borderline, Nonreactive, Weakly Reactive, Inconclusive, Specimen unsatisfactory for evaluation Syphilis RPR Nonreactive Blood Venous blood specimen / Unknown 08/06/2024 Result [facility] Historical Provider MD LAB BLOOD ORDERABLES Kelsey l Result * Hepatitis C Antibody ([place] DP) (08/06/2024) Pathologist [facility] Hepatitis C Ab Nonreactive Blood 08/06/2024 Result [facility] Provider MD LAB BLOOD ORDERABLES Kelsey l Result * HIV Ab/Ag ([place] DPH) (08/06/2024) Pathologist [facility] HIV Ag/Ab Nonreactive Blood 08/06/2024 Result [facility] Historical Provider MD LAB BLOOD ORDERABLES Kelsey l Result * Referral to Rheumatology (08/06/2024) 08/06/2024 Result [facility] OUTPATIENT REFERRAL ORDERABLES F inal Result * (ABNORMAL) Lipid Panel, Standard (06/18/2024 10:18 AM EDT) Pathologist [facility] Triglycerides 122 <150 mg/dL [facility] Comment:Desirable Triglyceri de: less than 150 mg/dLBorderline High Triglyceride 150-199 mg/dLHigh Triglyceride: 200-499 mg/dLVery High Triglyceride: greater than or equal to 5OO mg/dL Cholesterol 216(H) <200 mg/dL [facility] Comment:Desirable Cholestero l: less than 200 mg/dLBorderline High Cholesterol: 200-239 mg/dLHigh Cholesterol: greater than 239 mg/dL LDL Cholesterol Calculated 128(H) <100 mg/dL [facility] Comment:Desirable LDL: less than 100 mg/dLNear Optimal/Above Optimal LDL: 110- 129 mg/dLBorderline High LDL: 130-159 mg/dLHigh LDL: 160-189 mg/dLVery High LDL: greater than or equal to 190 mg/dL HDL Cholesterol 64 >40 mg/dL [facility] Comment:Desirable HDL: great er than 40 mg/dL Note: This HDL assay may give artificially low results in patients with liver disease. Blood Venous blood specimen / Unknown 06/18/2024 10:18 AM EDT 06/18/2024 11:08 AM EDT [facility] LAB BLOOD ORDERABLES Final Resul t [facility] [address] [place] [phone] * BI Mammogram Screening Tomosynthesis Bilateral (04/12/2024 1:48 PM EST) Anatomical Region Laterality Modality Breast Bilateral Mammography 04/12/2024 1:48 PM EST Narrative 04/17/2024 12:38 PM EST [facility] [address] [place] [address] Mammography Report Signed Patient: Nuvia Fay MR #: [id number] : 1960 Acct:[id number] Age/Sex: 63 / F ADM Date: 04/12/24 Loc: HO.MAMMO Attending Dr: Monica Lozano CNM Ordering Physician: Monica Lozano CNM Results: 2Beni gn Findings Date of Service: 04/12/24 Follow Up: 1 Year From Orig inal Mammogram Procedure(s): MM tomosynthesis screening BI Accession Number(s): [id number] cc: Monica Lozano CNM; ANTHONY RUIZ NP [...] by: Cherrie Roberts DO 04/17/2024 12:35 PM [facility] Dictated By: Cherrie Roberts DO Signed By: <Electronically signed by Cherrie Roberts DO in OV> 04/17/24 1235 DD/ 1348 TD/TT: 04/12/24 1405 Missile Control Pilot: Procedure Note Donotuseinterpreter, Image - 04/17/2024 [facility] [address] [place] [address] Mammography Report Signed Patient: Nuvia Fay EMR #: [id number] : 1960cct:[id number] Age/Sex: 63 / FADM Date: 04/12/24 Loc: HO.MAMMO Attending Dr: Monica Lozano CNM Ordering Physician: Monica LozanoMResults: 2Beni gn Findings Date of Service: 04/12/24Follow Up: 1 Year From Orig inal Mammogram Procedure(s): MM tomosynthesis screening BI Accession Number(s): [id number] cc: Monica Lozano CNM; ANTHONY RUIZ NP [...] 04/17/24 1235 DD/ 1348 TD/TT: 04/12/24 1405 Missile Control Pilot: [facility] External Provider IMG BI PROCEDURES Edited Result - Final * Albumin, Random Urine W/Creatinine (01/02/2024 8:44 AM EST) Creatinine, Urine 47.20 mg/dL [facility] Microalbumin Urine 7.0 mg/L [facility] Microalbum Creatinine Ratio Ur 14.8 <30 ug/mg cr [facility] Comment:Albumin/Creatinine R atio Reference Ranges: Normal: < 30 ug/mg creatinine Microalbuminuria: 30 - 300 ug/mg creatinineClinical Albuminuria: > 300 ug/mg creatinine Urine (Urine, Random) 01/02/2024 8:44 AM EST 01/02/2024 11:09 AM EST Anthony Ruiz [facility] URINE ORDERABLES Final Resul t [facility] [address] [place] [phone] * (ABNORMAL) Colonoscopy (12/27/2021) Colonoscopy Abnormal(A ) Normal Historical Provider MD HEALTH MAINTENANCE Final Result * HPV E6/E7 RFLX ALFRED 16 18/45 (05/09/2020 11:19 AM EDT) HPV mRNA E6/E7 rflx Not Detected Not Detected [facility] Comment: Methodology: Nail Kegger-Mediated Amplification This assay detects E6/E7 viral messenger RNA (mRNA) from 14 high-risk HPV types (16,18,31,33,35,39,45,51,52,56,58,59,66,68). The analytical performance characteristics of this assay have been determined by [employer]. The modifications have not been cleared or approved by the FDA. This assay has been validated pursuant to the CLIA regulations and is used for clinical purposes. For additional information, please refer to http://education.[employer]/faq/YLH342z1 (This link if provided for information/ educational purposes only.) THIS TEST WAS PERFORMED AT: [facility] [address] [place] [address],[place] [address] HERNAN [place] MD 05/09/2020 11:1 9 AM EDT [facility] HISTORICAL/NON ORDERABLE LABS Fi nal Result [facility] [address] from Last 3 Months or Most Recently Relevant to Health Maintenance Insurance [facility] < 65 [facility] Care Teams Trestleman Relationship Specialty Start Date End Date Anthony Ruiz ANP [address] [place] [phone] PCP - General Family Medicine 09/23/19 Yuri Pierre, PharmD [address] [place] [address] Pharmacist Internal Medicine 05/05/24 Basilio Hall MD [address] [place] [address] Cardiology 05/17/24 Ron Preciado MD [address] [place] [address] Pulmonary Disease 05/17/24
--- OUTSIDE RECORDS SUMMARY | 2024-11-01 10:45 | XMS_ITS | Encounter Summary ---
Author Organization [employer] Address [address] [facility] 7t [place] [address] Care Team Providers Care Vet Assistant Name Role Phone Sariah Vickers Primary Care Provider [phone] Yuri Pierre PharmD Unavailable [phone] Basilio Hall MD Unavailable [phone] Ron Preciado MD Unavailable [phone] Reason for Visit * Reason Comments Med Refill Encounter Details Date Type Department Care Team (Late st Contact Info) Description 11/26/2023 Refill [facility] MEDICINE [address] [place] [address] Sariah Vickers ANP [address] [place] [address] Vertigo Social History Tobacco Use Types Packs/Day [...] Description 11/01/2024 2:45 PM EDT Office Visit [address] [address] Reta Sue MD [address] [place] [address] 11/05/2024 2:30 PM EDT Office Visit [address] [address] Hallie Tapia MD [address] [place] [address] 11/12/2024 9:30 AM EDT Clinical Support [address] [address] Azeb Hall RN [address] [place] [address] 01/11/2025 1:00 PM EST Office Visit [address] [address] Sariah Vickers ANP [address] [place] [address] 02/03/2025 11:00 AM EST Medication Management [facility] MEDICINE [address] [place] [address] Yuri Pierre, PharmD [address] [place] [address] documented as of this encounter Goals Goal [...] documented as of this encounter Care Teams Vet Assistant Relationship Specialty Start Date End Date Sariah Vickers ANP [address] [place] [address] PCP - General Family Medicine 09/23/19 Yuri Pierre, PharmD [address] [place] [address] Pharmacist Internal Medicine 05/05/24 Basilio Hall MD [address] [place] [address] Cardiology 05/17/24 Ron Preciado MD [address] [place] [address] Pulmonary Disease 05/17/24 documented as of this encounter
--- OUTSIDE RECORDS SUMMARY | 2024-11-01 10:45 | XMS_ITS | Encounter Summary ---
Author Organization [employer] Address [address] [facility] 7t [place] [address] Care Team Providers Care Lace Mender Name Role Phone Sariah Vickers Primary Care Provider [phone] Yuri Pierre PharmD Unavailable [phone] Basilio Hall MD Unavailable [phone] Ron Preciado MD Unavailable [phone] Encounter Details Date Type Department Care Team (Late st Contact Info) Description 10/20/2024 Results Follow-Up [facility] MEDICINE [address] [place] [address] Sariah Vickers ANP [address] [place] [address] Prothrombin Time-INR, C-reactive Protein, Amylase, Additional followed-up [...] Description 11/01/2024 2:45 PM EDT Office Visit [address] [address] Reta Sue MD [address] [place] [address] 11/05/2024 2:30 PM EDT Office Visit [address] [address] Hallie Tapia MD [address] [place] [address] 11/12/2024 9:30 AM EDT Clinical Support [address] [phone] Azeb Hall RN [address] [place] [address] 01/11/2025 1:00 PM EST Office Visit [address] [address] Sariah Vickers ANP [address] [place] [address] 02/03/2025 11:00 AM EST Medication Management [address] [phone] Yuri Pierre PharmD [address] [place] [address] documented as of this encounter Goals Goal [...] Noted Time PHQ-9 Depression Total Score: 11 10/19/ 025 5:30 PM EDT documented as of this encounter Care Teams Lace Mender Relationship Specialty Start Date End Date Sariah Vickers ANP [address] [place] [address] PCP - General Family Medicine 09/23/19 Yuri Pierre, MikeD [address] [place] [address] Pharmacist Internal Medicine 05/05/24 Basilio Hall MD [address] [place] [address] Cardiology 05/17/24 Ron Preciado MD [address] [place] [address] Pulmonary Disease 05/17/24 documented as of this encounter
--- OUTSIDE RECORDS SUMMARY | 2024-11-01 10:45 | XMS_ITS | Encounter Summary ---
Author Organization [employer] Address [address] [facility] 7t [place] [address] Care Team Providers Care Electric System Operator Name Role Phone Sariah Vickers Primary Care Provider [phone] Yuri Pierre PharmD Unavailable [phone] Basilio Hall MD Unavailable [phone] Ron Preciado MD Unavailable [phone] Reason for Visit * Reason Comments Med Refill Encounter Details Date Type Department Care Team (Late st Contact Info) Description 12/19/2022 Refill [facility] MEDICINE [address] [place] [address] Sariah Vickers ANP [address] [place] [address] Vertigo Social History Tobacco Use Types Packs/Day [...] Description 11/01/2024 2:45 PM EDT Office Visit [address] [address] Reta Sue MD [address] [place] [address] 11/05/2024 2:30 PM EDT Office Visit [address] [address] Hallie Tapia MD [address] [place] [address] 11/12/2024 9:30 AM EDT Clinical Support [address] [address] Azeb Hall, MARTIN [address] [place] [address] 01/11/2025 1:00 PM EST Office Visit [address] [address] Sariah Vickers ANP [address] [place] [address] 02/03/2025 11:00 AM EST Medication Management [address] [address] Yuri Pierre, PharmD [address] [place] [address] documented as of this encounter Goals Goal [...] giddiness documented in this encounter Care Teams Electric System Operator Relationship Specialty Start Date End Date Sariah Vickers ANP [address] [place] [address] PCP - General Family Medicine 09/23/19 Yuri Pierre, PharmD [address] [place] [address] Pharmacist Internal Medicine 05/05/24 Basilio Hall MD [address] [place] [address] Cardiology 05/17/24 Ron Preciado MD [address] [place] [address] Pulmonary Disease 05/17/24 documented as of this encounter
--- OUTSIDE RECORDS SUMMARY | 2024-11-01 10:45 | XMS_ITS | Encounter Summary ---
Author Organization [employer] Address 75 [facility] 7t [place] [address] Care Team Providers Care Naprapath Name Role Phone Sariah Vickers KAYLEE Primary Care Provider [phone] Yuri Pierre PharmD Unavailable [phone] Basilio Hall MD Unavailable [phone] Ron Preciado MD Unavailable [phone] Reason for Visit * Reason Comments Med Refill Encounter Details Date Type Department Care Team (Late st Contact Info) Description 10/04/2024 Refill [facility] [address] [place] [address] Zakia Uriostegui, PURCHASING BUYER [address] [place] [address] Type 2 diabetes mellitus with hyperglycemia (CMS/HCC) [...] Description 11/01/2024 2:45 PM EDT Office Visit [address] [address] Reta Sue MD [address] [place] [address] 11/05/2024 2:30 PM EDT Office Visit [address] [address] Hallie Tapia MD [address] [place] [address] 11/12/2024 9:30 AM EDT Clinical Support [address] [address] Azeb Hall RN [address] [place] [address] 01/11/2025 1:00 PM EST Office Visit [address] [address] Sariah Vickers ANP 230 [place] [address] 02/03/2025 11:00 AM EST Medication Management [facility] MEDICINE [address] [place] [address] Yuri Pierre, PharmD 230 [place] [address] documented as of this encounter Goals Goal [...] documented as of this encounter Care Teams Naprapath Relationship Specialty Start Date End Date Sariah Vickers ANP [address] [place] [address] PCP - General Family Medicine 09/23/19 Yuri Pierre, PharmD [address] [place] [address] Pharmacist Internal Medicine 05/05/24 Basilio Hall MD [address] [place] [address] Cardiology 05/17/24 Ron Preciado MD [address] [place] [address] Pulmonary Disease 05/17/24 documented as of this encounter
--- OUTSIDE RECORDS SUMMARY | 2024-11-01 10:45 | XMS_ITS | Encounter Summary ---
Author Organization [employer] Address [address] [facility] 7t [place] [address] Care Team Providers Care Copier Repair Technician Name Role Phone Sariah Vickers Primary Care Provider [phone] Yuri Pierre PharmD Unavailable [phone] Basilio Hall MD Unavailable [phone] Ron Preciado MD Unavailable [phone] Reason for Visit * Reason Comments Med Refill Encounter Details Date Type Department Care Team (Late st Contact Info) Description 01/06/2024 Refill [facility] [address] [place] [address] Sariah Vickers ANP [address] [place] [address] Cervicalgia Social History Tobacco Use Types Packs/Day [...] Description 11/01/2024 2:45 PM EDT Office Visit [address] [address] Reta Sue MD [address] [place] [address] 11/05/2024 2:30 PM EDT Office Visit [address] [address] Hallie Tapia MD [address] [place] [address] 11/12/2024 9:30 AM EDT Clinical Support [address] [address] Azeb Hall RN [address] [place] [address] 01/11/2025 1:00 PM EST Office Visit [address] [address] Sariah Vickers ANP [address] [place] [address] 02/03/2025 11:00 AM EST Medication Management [facility] MEDICINE [address] [place] [address] Yuri Pierre, MikeD [address] [place] [address] documented as of this encounter Goals Goal [...] documented as of this encounter Care Teams Copier Repair Technician Relationship Specialty Start Date End Date Sariah Vickers ANP [address] [place] [address] PCP - General Family Medicine 09/23/19 Yuri Pierre, PharmD [address] [place] [address] Pharmacist Internal Medicine 05/05/24 Basilio Hall MD [address] [place] [address] Cardiology 05/17/24 Ron Preciado MD [address] [place] [address] Pulmonary Disease 05/17/24 documented as of this encounter
--- OUTSIDE RECORDS SUMMARY | 2024-11-01 10:45 | XMS_ITS | Encounter Summary ---
Author Organization [employer] Address [address] [facility] 7t [place] [address] Care Team Providers Care Director Of Social Work Name Role Phone Sariah Vickers Primary Care Provider [phone] Yuri Pierre PharmD Unavailable [phone] Basilio Hall MD Unavailable [phone] Ron Preciado MD Unavailable [phone] Reason for Visit * Reason Comments Med Refill Encounter Details Date Type Department Care Team (Late st Contact Info) Description 10/17/2023 Refill [facility] MEDICINE [address] [place] [address] Sariah Vickers ANP 230 [place] [address] Neck pain Social History Tobacco Use Types [...] Description 11/01/2024 2:45 PM EDT Office Visit [address] [address] Reta Sue MD [address] [place] [address] 11/05/2024 2:30 PM EDT Office Visit [address] [address] Hallie Tapia MD [address] [place] [address] 11/12/2024 9:30 AM EDT Clinical Support [address] [address] Azeb Hall RN [address] [place] [address] 01/11/2025 1:00 PM EST Office Visit [address] [address] Sariah Vickers ANP [address] [place] [address] 02/03/2025 11:00 AM EST Medication Management [facility] MEDICINE [address] [place] [address] Yuri Pierre, PharmD [address] [place] [address] documented as of this encounter Goals Goal [...] of this encounter Care Teams Director Of Social Work Relationship Specialty Start Date End Date Sariah Vickers ANP [address] [place] [address] PCP - General Family Medicine 09/23/19 Yuri Pierre, PharmD [address] [place] [address] Pharmacist Internal Medicine 05/05/24 Basilio Hall MD [address] [place] [address] Cardiology 05/17/24 Ron Preciado MD [address] [place] [address] Pulmonary Disease 05/17/24 documented as of this encounter
--- OUTSIDE RECORDS SUMMARY | 2024-11-01 10:45 | XMS_ITS | Encounter Summary ---
Author Organization [employer] Address 75 [facility] 7t [place] [address] Care Team Providers Care Field Research Associate Name Role Phone Sariah Vickers Primary Care Provider Yuri Pierre PharmD Unavailable [phone] Basilio Hall MD Unavailable [phone] Ron Preciado MD Unavailable [phone] Reason for Visit * Reason Onset Date Comments Referral 08/02/2024 Encounter Details Date Type Department Care Team (Late st Contact Info) Description 08/02/2024 Telephone [facility] MEDICINE 230 [place], [place] [phone] Sariah Vickers ANP 230 [place], [place] [phone] Referral Social History Tobacco Use Types Packs/Day [...] for vertigo therapy. Please contact pt at [phone]. (Albanian Speaker) documented in this encounter Plan of Treatment Upcoming Encounters Date Type Department Care Team (Late st Contact Info) Description 11/01/2024 2:45 PM EDT Office Visit [facility] MEDICINE [address] [place] [address] [phone] Reta Sue MD [address] [place] [address] 11/05/2024 2:30 PM EDT Office Visit [facility]INE [address] [place] [address] Hallie Tapia MD [address] [place] [address] 11/12/2024 9:30 AM EDT Clinical Support [address] [phone] Azeb Hall RN 505 [place] [address] 01/11/2025 1:00 PM EST Office Visit [address] [phone] Sariah Vickers ANP [address] [place] [address] 02/03/2025 11:00 AM EST Medication Management [address] [phone] Yuri Pierre PharmD [address] [place] [address] documented as of this encounter Goals Goal [...] as of this encounter Care Teams Field Research Associate Relationship Specialty Start Date End Date Sariah Vickers ANP [address] [place] [address] PCP - General Family Medicine 09/23/19 Yuri Pierre PharmD [address] [place] [address] Pharmacist Internal Medicine 05/05/24 Basilio Hall MD 596 [place] [address] Cardiology 05/17/24 Ron Preciado MD [address] [place] [address] Pulmonary Disease 05/17/24 documented as of this encounter
--- OUTSIDE RECORDS SUMMARY | 2024-11-01 10:45 | XMS_ITS | Encounter Summary ---
Author Organization [employer] Address 75 [facility] 7t [place] [address] Care Team Providers Care Hat Band Attacher Name Role Phone Sariah Vickers Primary Care Provider [phone] Yuri Pierre PharmD Unavailable [phone] Basilio Hall MD Unavailable [phone] Ron Preciado MD Unavailable [phone] Reason for Visit * Reason Comments Med Refill Encounter Details Date Type Department Care Team (Late st Contact Info) Description 01/04/2024 Refill [facility] [address] [place] [address] Sariah Vickers ANP 230 [place] [address] Cervicalgia Social History Tobacco Use Types Packs/Day [...] 11/01/2024 2:45 PM EDT Office Visit [address] [address] Reta Sue MD [address] [place] [address] 11/05/2024 2:30 PM EDT Office Visit [address] [address] Hallie Tapia MD [address] [place] [address] 11/12/2024 9:30 AM EDT Clinical Support [address] [address] Azeb Hall RN [address] [place] [address] 01/11/2025 1:00 PM EST Office Visit [address] [address] Sariah Vickers ANP [address] [place] [address] 02/03/2025 11:00 AM EST Medication Management [facility] 230 [place] [address] Yuri Pierre, MikeD 230 [place] [address] documented as of this encounter Goals Goal [...] documented as of this encounter Care Teams Hat Band Attacher Relationship Specialty Start Date End Date Sariah Vickers ANP 230 [place] [address] PCP - General Family Medicine 09/23/19 Yuri Pierre, PharmD 230 [place] [address] Pharmacist Internal Medicine 05/05/24 Basilio Hall MD 596 [place] [address] Cardiology 05/17/24 Ron Preciado MD [address] [place] [address] Pulmonary Disease 05/17/24 documented as of this encounter
--- OUTSIDE RECORDS SUMMARY | 2024-11-01 10:45 | XMS_ITS | Encounter Summary ---
Author Organization [employer] Address 75 [facility] 7t [place] [address] Care Team Providers Care Livestock Rancher Name Role Phone Anthony Ruiz Primary Care Provider [phone] Yuri Pierre PharmD Unavailable [phone] Basilio Hall MD Unavailable [phone] Ron Preciado MD Unavailable [phone] Encounter Details Date Type Department Care Team (Late st Contact Info) Description 09/28/2024 Orders Only [facility] MEDICINE 230 [place] [address] Anthony Ruiz ANP 230 [place] [address] Social History Tobacco Use Types Packs/Day Years [...] Description 11/01/2024 2:45 PM EDT Office Visit [address] [address] Reta Sue MD [address] [place] [address] 11/05/2024 2:30 PM EDT Office Visit [address] [address] Hallie Tapia MD [address] [place] [address] 11/12/2024 9:30 AM EDT Clinical Support [address] [address] Azeb Hall RN 505 [place] [address] 01/11/2025 1:00 PM EST Office Visit [address] [address] Anthony Ruiz ANP [address] [place] [address] 02/03/2025 11:00 AM EST Medication Management [facility] MEDICINE 230 [place] [address] Yuri Pierre, PharmD 230 [place] [address] documented as of this encounter Goals Goal Patient Goal Type Associated Problems Recent Progress Patient-Stated? Author Blood Pressure < 140/90 Blood Pressure 140/90(2024 1:50 PM EDT) No Phanis-Gambl Aida urbina, PharmD Record Your Blood Sugar As Directed General No Phanis-Gambl Aida urbina, PharmD Hemoglobin A1c < 7 Result Component 6.6( 1:54 PM EDT) No Phanis-Dileepl eAida, PharmD documented as of this encounter Procedures Procedure Name Priority Date/Time Associated Diagnosis Comments LDCT LUNG SCREENING Routine 10/09/2024 1 :18 PM EDT documented in this encounter Results * CT Lung Screening Low dose (10/09/2024 1:18 PM EDT) Anatomical Region Laterality Modality Lung Computed Tomogra phy 10/09/2024 1:18 PM EDT Narrative 10/09/2024 1:20 PM EDT [address] [address] [address] Scan Report Signed Patient: Nuvia Fay MR #: [id number] : [id number] Acct:[id number] Age/Sex: 64 / F ADM Date: 10/08/24 Loc: HO.CT Attending Dr: Ron Preciado MD Ordering Physician: Ron Preciado MD Date of Service: 10/08/24 Procedure(s): CT lung screening Accession Number(s): [id number] cc: Ron Preciado MD; ANTHONY RUIZ NP Report Number: [id number]: Total DLP = 64.00 mGy-cm CLINICAL HISTORY: [...] in OV> 10/09/24 1319 DD/ 17 TD/TT: 10/09/24 131 Clinic Business Manager: Procedure Note Donotuseinterpreter, Image - 10/09/[address] [place] [address] CT Scan Report Signed Patient: Nuvia Fay EMR #: [id number] : [id number] Age/Sex: 64 / FADM Date: 10/08/24 Loc: HO.CT Attending Dr: Ron Preciado MD Ordering Physician: Ron Preciado MD Date of Service: 10/08/24 Procedure(s): CT lung screening Accession Number(s): [id number] cc: Rno Preciado MD; ANTHONY RUIZ NP Report Number: [id number]: Total DLP = 64.00 mGy-cm CLINICAL HISTORY: [...] 10/09/24 1319 DD/ 1318 TD/TT: 10/09/24 1318 Clinic Business Manager: [facility] External Provider IMG CT PROCEDURES Edited Result - Final documented in this encounter Visit Diagnoses Not on filedocumented in this encounter Additional Health Concerns Assessment Noted Time PHQ-9 Depression Total Score: 12 024 2:58 PM EDT documented as of this encounter Care Teams Livestock Rancher Relationship Specialty Start Date End Date Anthony Ruiz ANP 230 [place] [address] PCP - General Family Medicine 09/23/19 Yuri Pierre, MikeD 230 [place] [address] Pharmacist Internal Medicine 05/05/24 Basilio Hall MD 596 [place] [address] Cardiology 05/17/24 Ron Preciado MD [address] [place] [address] Pulmonary Disease 05/17/24 documented as of this encounter
--- OUTSIDE RECORDS SUMMARY | 2024-11-01 10:45 | XMS_ITS | Encounter Summary ---
Author Organization [employer] Address 75 [facility] 7t [place] [address] Care Team Providers Care Digital Technician Name Role Phone Sariah Vickers Primary Care Provider [phone] Yuri Pierre PharmD Unavailable [phone] Basilio Hall MD Unavailable [phone] Ron Prceiado MD Unavailable [phone] Reason for Visit * Reason Comments Med Refill Encounter Details Date Type Department Care Team (Late st Contact Info) Description 10/24/2023 Refill [facility] MEDICINE 230 [place] [address] Sariah Vickers ANP 230 [place] [address] Neck pain Social History Tobacco Use Types [...] Description 11/01/2024 2:45 PM EDT Office Visit [address] [address] Reta Sue MD [address] [place] [address] 11/05/2024 2:30 PM EDT Office Visit [address] [address] Hallie Tapia MD [address] [place] [address] 11/12/2024 9:30 AM EDT Clinical Support [address] [address] Azeb Hall RN [address] [place] [address] 01/11/2025 1:00 PM EST Office Visit [address] [address] Sariah Vickers ANP [address] [place] [address] 02/03/2025 11:00 AM EST Medication Management [facility] 230 [place] [address] Yuri Pierre, PharmD 230 [place] [address] documented as of this encounter Goals Goal [...] as of this encounter Care Teams Digital Technician Relationship Specialty Start Date End Date Sariah Vickers ANP 230 [place] [address] PCP - General Family Medicine 09/23/19 Yuri Pierre, PharmD [address] [place] [address] Pharmacist Internal Medicine 05/05/24 Basilio Hall MD 596 [place] [address] Cardiology 05/17/24 Ron Preciado MD [address] [place] [address] Pulmonary Disease 05/17/24 documented as of this encounter
--- OUTSIDE RECORDS SUMMARY | 2024-11-01 10:46 | XMS_ITS | Encounter Summary ---
Author Organization [employer] Address 75 [facility] 7t [place] [address] Care Team Providers Care Commercial Credit Specialist Name Role Phone Sariah Vickers Primary Care Provider [phone] Yuri Pierre PharmD Unavailable [phone] Basilio Hall MD Unavailable [phone] Ron Preciado MD Unavailable [phone] Encounter Details Date Type Department Care Team (Late st Contact Info) Description 10/26/2024 Results Follow-Up [facility] MEDICINE 230 [place] [address] Sariah Vickers ANP 230 [place] [address] Thyroid Peroxidase Antibodies, Cardiolipin Antibodies (IgA,IgG,IgM) Social History Tobacco Use Types Packs/Day Years [...] Result Encounter Note - KAYLEE Lopez - 10/26/2024 9:11 AM EDT From outside provider - will cont to follow, no new note in chart documented in this encounter Plan of Treatment Upcoming Encounters Date Type Department Care Team (Late st Contact Info) Description 11/01/2024 2:45 PM EDT Office Visit [facility] MEDICINE [address] [place] [address] Reta Sue MD [address] [place] [address] 11/05/2024 2:30 PM EDT Office Visit [address] [address] Hallie Tapia MD [address] [place] [address] 11/12/2024 9:30 AM EDT Clinical Support [address] [phone] Azeb Hall RN 505 [place] [address] 01/11/2025 1:00 PM EST Office Visit [address] [address] Sariah Vickers ANP [address] [place] [address] 02/03/2025 11:00 AM EST Medication Management [address] [phone] Yuri Pierre PharmD [address] [place] [address] documented as of this encounter Goals Goal [...] documented as of this encounter Care Teams Commercial Credit Specialist Relationship Specialty Start Date End Date Sariah Vickers ANP [address] [place] [address] PCP - General Family Medicine 09/23/19 Yuri Pierre, MikeD [address] [place] [address] Pharmacist Internal Medicine 05/05/24 Basilio Hall MD [address] [place] [address] Cardiology 05/17/24 Ron Preciado MD [address] [place] [address] Pulmonary Disease 05/17/24 documented as of this encounter
--- OUTSIDE RECORDS SUMMARY | 2024-11-01 10:46 | XMS_ITS | Encounter Summary ---
Author Organization [employer] Address 75 [facility] 7t [place] [address] Care Team Providers Care Geological Technical Officer Name Role Phone Sariah Vickers Primary Care Provider [phone] Yuri Pierre PharmD Unavailable [phone] Basilio Hall MD Unavailable [phone] oRn Preciado MD Unavailable [phone] Reason for Visit * Reason Comments Med Refill Encounter Details Date Type Department Care Team (Late st Contact Info) Description 05/21/2023 Refill [facility] MEDICINE 230 [place] [address] Sariah Vickers ANP 230 [place] [address] Neck pain Social History Tobacco Use Types [...] Description 11/01/2024 2:45 PM EDT Office Visit [address] [address] Reta Sue MD [address] [place] [address] 11/05/2024 2:30 PM EDT Office Visit [address] [address] Hallie Tapia MD [address] [place] [address] 11/12/2024 9:30 AM EDT Clinical Support [address] [address] Azeb Hall RN [address] [place] [address] 01/11/2025 1:00 PM EST Office Visit [facility] MEDICINE [address] [place] [address] Sariah Vickers ANP 230 [place] [address] 02/03/2025 11:00 AM EST Medication Management [address] [address] Yuri Pierre PharmD [address] [place] [address] documented as of this encounter Goals Goal [...] Cervicalgia documented in this encounter Care Teams Geological Technical Officer Relationship Specialty Start Date End Date Sariah Vickers ANP [address] [place] [address] PCP - General Family Medicine 09/23/19 Yuri Pierre, PharmD [address] [place] [address] Pharmacist Internal Medicine 05/05/24 Basilio Hall MD [address] [place] [address] Cardiology 05/17/24 Ron Preciado MD [address] [place] [address] Pulmonary Disease 05/17/24 documented as of this encounter
--- OUTSIDE RECORDS SUMMARY | 2024-11-01 10:46 | XMS_ITS | Encounter Summary ---
Author Organization [employer] Address 75 [facility] 7t [place] [address] Care Team Providers Care Mold Designer Name Role Phone Sariah Vickers Primary Care Provider [phone] Yuri Pierre PharmD Unavailable [phone] Basilio Hall MD Unavailable [phone] Ron Preciado MD Unavailable [phone] Reason for Visit * Reason Comments Med Refill Encounter Details Date Type Department Care Team (Late st Contact Info) Description 10/29/2024 Refill [facility] [address] [place] [address] Sariah Vickers ANP 230 [place] [address] Neck pain Social History Tobacco Use Types [...] Description 11/01/2024 2:45 PM EDT Office Visit [address] [address] Reta Sue MD [address] [place] [address] 11/05/2024 2:30 PM EDT Office Visit [address] [address] Hallie Tapia MD [address] [place] [address] 11/12/2024 9:30 AM EDT Clinical Support [address] [address] Azeb Hall, MARTIN 505 [place] [address] 01/11/2025 1:00 PM EST Office Visit [address] [address] Sariah Vickers ANP 230 [place] [address] 02/03/2025 11:00 AM EST Medication Management [facility] MEDICINE 230 [place] [address] Yuri Pierre, Dileep 230 [place] [address] documented as of this encounter Goals Goal [...] as of this encounter Care Teams Mold Designer Relationship Specialty Start Date End Date Sariah Vickers ANP 230 [place] [address] PCP - General Family Medicine 09/23/19 Yuri Pierre, PharmD [address] [place] [address] Pharmacist Internal Medicine 05/05/24 Basilio Hall MD 596 [place] [address] Cardiology 05/17/24 Ron Preciado MD [address] [place] [address] Pulmonary Disease 05/17/24 documented as of this encounter
--- OUTSIDE RECORDS SUMMARY | 2024-11-01 10:46 | XMS_ITS | Encounter Summary ---
Author Organization [employer] Address 75 [facility] 7t [place] [address] Care Team Providers Care Logistics Planning Manager Name Role Phone Sariah Vickers Primary Care Provider [phone] Yuri Pierre PharmD Unavailable [phone] Basilio Hall MD Unavailable [phone] Ron Preciado MD Unavailable [phone] Reason for Visit * Reason Comments Med Refill Encounter Details Date Type Department Care Team (Late st Contact Info) Description 06/30/2023 Refill [facility] MEDICINE 230 [place] [address] Sariah Vickers ANP 230 [place] [address] Neck pain Social History Tobacco Use Types [...] Description 11/01/2024 2:45 PM EDT Office Visit [address] [address] Reta Sue MD [address] [place] [address] 11/05/2024 2:30 PM EDT Office Visit [address] [address] Hallie Tapia MD [address] [place] [address] 11/12/2024 9:30 AM EDT Clinical Support [address] [address] Azeb Hall RN [address] [place] [address] 01/11/2025 1:00 PM EST Office Visit [address] [address] Sariah Vickers ANP [address] [place] [address] 02/03/2025 11:00 AM EST Medication Management [facility] MEDICINE [address] [place] [address] Yuri Pierre, PharmD 230 [place] [address] documented as of this encounter Goals Goal [...] documented as of this encounter Care Teams Logistics Planning Manager Relationship Specialty Start Date End Date Sariah Vickers ANP 230 [place] [address] PCP - General Family Medicine 09/23/19 Yuri Pierre, PharmD [address] [place] [address] Pharmacist Internal Medicine 05/05/24 Basilio Hall MD 596 [place] [address] Cardiology 05/17/24 Ron Preciado MD [address] [place] [address] Pulmonary Disease 05/17/24 documented as of this encounter
--- OUTSIDE RECORDS SUMMARY | 2024-11-01 10:46 | XMS_ITS | Encounter Summary ---
Author Organization [employer] Address 75 [facility] 7t [place] [address] Care Team Providers Care Wall Taper Helper Name Role Phone Sariah Vickers Primary Care Provider Yuri Pierre PharmD Unavailable [phone] Basilio Hall MD Unavailable [phone] Ron Preciado MD Unavailable [phone] Reason for Visit * Reason Comments Med Refill Encounter Details Date Type Department Care Team (Late st Contact Info) Description 03/07/2023 Refill [facility] MEDICINE 230 [place] [address] Sariah Vickers ANP 230 [place] [address] Vertigo Social History Tobacco Use Types Packs/Day [...] Description 11/01/2024 2:45 PM EDT Office Visit [address] [address] Reta Sue MD [address] [place] [address] 11/05/2024 2:30 PM EDT Office Visit [address] [address] Hallie Tapia MD [address] [place] [address] 11/12/2024 9:30 AM EDT Clinical Support [address] [address] Azeb Hall, MARTIN 505 [place] [address] 01/11/2025 1:00 PM EST Office Visit [address] [address] Sariah Vickers ANP [address] [place] [address] 02/03/2025 11:00 AM EST Medication Management [address] [address] Yuri Pierre, PharmD 230 [place] [address] documented as of this encounter Goals Goal [...] giddiness documented in this encounter Care Teams Wall Taper Helper Relationship Specialty Start Date End Date Sariah Vickers ANP 230 [place] [address] PCP - General Family Medicine 09/23/19 Yuri Pierre, PharmD 230 [place] [address] Pharmacist Internal Medicine 05/05/24 Basilio Hall MD 596 [place] [address] Cardiology 05/17/24 Ron Preciado MD [address] [place] [address] Pulmonary Disease 05/17/24 documented as of this encounter
--- OUTSIDE RECORDS SUMMARY | 2024-11-01 10:46 | XMS_ITS | Encounter Summary ---
Author Organization [employer] Address 75 [facility] 7t [place] [address] Care Team Providers Care Sprinkler Worker Name Role Phone Sariah Vickers Primary Care Provider [phone] Yuri Pierre PharmD Unavailable [phone] Basilio Hall MD Unavailable [phone] Ron Preciado MD Unavailable [phone] Reason for Visit * Reason Comments Med Refill Encounter Details Date Type Department Care Team (Late st Contact Info) Description 05/23/2024 Refill [facility] [address] [place] [address] Sariah Vickers ANP 230 [place] [address] Cervicalgia Social History Tobacco Use Types Packs/Day [...] Description 11/01/2024 2:45 PM EDT Office Visit [address] [address] Reta Sue MD [address] [place] [address] 11/05/2024 2:30 PM EDT Office Visit [address] [address] Hallie Tapia MD [address] [place] [address] 11/12/2024 9:30 AM EDT Clinical Support [address] [address] Azeb Hall RN [address] [place] [address] 01/11/2025 1:00 PM EST Office Visit [address] [address] Sariah Vickers ANP [address] [place] [address] 02/03/2025 11:00 AM EST Medication Management [facility] MEDICINE 230 [place] [address] Yuri Pierre, MikeD 230 [place] [address] documented as of this encounter Goals Goal [...] documented as of this encounter Care Teams Sprinkler Worker Relationship Specialty Start Date End Date Sariah Vickers ANP 230 [place] [address] PCP - General Family Medicine 09/23/19 Yuri Pierre, PharmD 230 [place] [address] Pharmacist Internal Medicine 05/05/24 Basilio Hall MD 596 [place] [address] Cardiology 05/17/24 Ron Preciado MD [address] [place] [address] Pulmonary Disease 05/17/24 documented as of this encounter
--- OUTSIDE RECORDS SUMMARY | 2024-11-01 10:46 | XMS_ITS | Encounter Summary ---
Author Organization [employer] Address 75 [facility] 7t [place] [address] Care Team Providers Care Electrical Systems Design Engineer Name Role Phone Sariah Vickers Primary Care Provider Yuri Pierre PharmD Unavailable [phone] Basilio Hall MD Unavailable [phone] Ron Preciado MD Unavailable [phone] Reason for Visit * Reason Onset Date Comments Appointment Request 09/03/2024 Encounter Details Date Type Department Care Team (Late st Contact Info) Description 09/03/2024 Telephone [facility] MEDICINE 230 [place] [address] Sariah Vickers ANP 230 [place], [place] [phone] Appointment Request Social History Tobacco Use Types [...] when making the apt. Contact pt at [phone] documented in this encounter Plan of Treatment Upcoming Encounters Date Type Department Care Team (Late st Contact Info) Description 11/01/2024 2:45 PM EDT Office Visit [facility] MEDICINE [address] [place] [address] Reta Seu MD [address] [place] [address] 11/05/2024 2:30 PM EDT Office Visit [facility] MEDICINE [address] [place] [address] Hallie Tapia MD [address] [place] [address] 11/12/2024 9:30 AM EDT Clinical Support [address] [address] Azeb Hall RN 505 [place] [address] 01/11/2025 1:00 PM EST Office Visit [address] [address] Sariah Vickres ANP [address] [place] [address] 02/03/2025 11:00 AM EST Medication Management [address] [address] Yuri Pierre PharmD [address] [place] [address] documented as of this encounter Goals Goal [...] as of this encounter Care Teams Electrical Systems Design Engineer Relationship Specialty Start Date End Date Sariah Vickers ANP [address] [place] [address] PCP - General Family Medicine 09/23/19 Yuri Pierre, PharmD [address] [place] [address] Pharmacist Internal Medicine 05/05/24 Basilio Hall MD 596 [place] [address] Cardiology 05/17/24 Ron Preciado MD [address] [place] [address] Pulmonary Disease 05/17/24 documented as of this encounter
--- OUTSIDE RECORDS SUMMARY | 2024-11-01 10:46 | XMS_ITS | Encounter Summary ---
Author Organization [employer] Address 75 [facility] 7t [place] [address] Care Team Providers Care Refrigeration Specialist Name Role Phone Sariah Vickers Primary Care Provider Yuri Pierre PharmD Unavailable [phone] Basilio Hall MD Unavailable [phone] Ron Preciado MD Unavailable [phone] Reason for Visit * Reason Onset Date Comments Med Refill 03/04/2023 Encounter Details Date Type Department Care Team (Late st Contact Info) Description 03/04/[address] [facility] [address] [place], [place] [phone] Sariah Vickers ANP 230 [place], [place] [phone] Med Refill Social History Tobacco Use Types [...] 50 MG tablet To be sent to: [facility] [place], [place] - [address] [place] [address] documented in this encounter Plan of Treatment Upcoming Encounters Date Type Department Care Team ([facility] st Contact Info) Description 11/01/2024 2:45 PM EDT Office Visit [facility] [address] [place] [address] Reta Sue MD [address] [place] [address] 11/05/2024 2:30 PM EDT Office Visit [facility] [address] [place] [address] Hallie Tapia MD [address] [place] [address] 11/12/2024 9:30 AM EDT Clinical Support [facility] [address] [place] [address] Azeb Hall RN 505 [place] [address] 01/11/2025 1:00 PM EST Office Visit [address] [address] Sariah Vickers ANP [address] [place] [address] 02/03/2025 11:00 AM EST Medication Management [address] [address] Yuri Pierre, Dileep [address] [place] [address] documented as of this encounter Goals Goal [...] on filedocumented in this encounter Care Teams Refrigeration Specialist Relationship Specialty Start Date End Date Sariah Vickers ANP [address] [place] [address] PCP - General Family Medicine 09/23/19 Yuri Pierre, PharmD [address] [place] [address] Pharmacist Internal Medicine 05/05/24 Basilio Hall MD [address] [place] [address] Cardiology 05/17/24 Ron Preciado MD [address] [place] [address] Pulmonary Disease 05/17/24 documented as of this encounter
--- OUTSIDE RECORDS SUMMARY | 2024-11-01 10:46 | XMS_ITS | Encounter Summary ---
Author Organization [employer] Address 75 [facility] 7t [place] [address] Care Team Providers Care Asphalt Surface Heater Operator Name Role Phone Sariah Vickers Primary Care Provider [phone] Yuri Pierre PharmD Unavailable [phone] Basilio Hall MD Unavailable [phone] Ron Preciado MD Unavailable [phone] Reason for Visit * Reason Comments Med Refill Encounter Details Date Type Department Care Team (Late st Contact Info) Description 07/10/2022 Refill [facility] 230 [place] [address] Sariah Vickers ANP 230 [place] [address] Vertigo Social History Tobacco Use Types Packs/Day [...] Description 11/01/2024 2:45 PM EDT Office Visit [address] [address] Reta Sue MD [address] [place] [address] 11/05/2024 2:30 PM EDT Office Visit [address] [address] Hallie Tapia MD [address] [place] [address] 11/12/2024 9:30 AM EDT Clinical Support [address] [address] Azeb Hall RN [address] [place] [address] 01/11/2025 1:00 PM EST Office Visit [address] [address] Sariah Vickers ANP [address] [place] [address] 02/03/2025 11:00 AM EST Medication Management [address] [address] Yuri Pierre PharmD [address] [place] [address] documented as of this encounter Visit Diagnoses Diagnosis Vertigo Dizziness and giddiness documented in this encounter Care Teams Asphalt Surface Heater Operator Relationship Specialty Start Date End Date Sariah Vickers ANP [address] [place] [address] PCP - General Family Medicine 09/23/19 Yuri Pierre, Dileep [address] [place] [address] Pharmacist Internal Medicine 05/05/24 Basilio Hall MD 596 [place] [address] Cardiology 05/17/24 Ron Preciado MD [address] [place] [address] Pulmonary Disease 05/17/24 documented as of this encounter
--- OUTSIDE RECORDS SUMMARY | 2024-11-01 10:46 | XMS_ITS | Encounter Summary ---
Author Organization [employer] Address 75 [facility] 7t [place] [address] Care Team Providers Care Senior Gis Analyst Name Role Phone Sariah Vickers KAYLEE Primary Care Provider [phone] Yuri Pierre PharmD Unavailable [phone] Basilio Hall MD Unavailable [phone] Ron Preciado MD Unavailable [phone] Reason for Visit * Reason Comments Med Refill Encounter Details Date Type Department Care Team (Late st Contact Info) Description 03/04/2023 Refill [facility] 230 [place] [address] Brittney Nava MD 230 [place] [address] Social History Tobacco Use Types Packs/Day Years [...] Description 11/01/2024 2:45 PM EDT Office Visit [address] [address] Reta Sue MD [address] [place] [address] 11/05/2024 2:30 PM EDT Office Visit [address] [address] Hallie Tapia MD [address] [place] [address] 279[address] 11/12/2024 9:30 AM EDT Clinical Support [address] [address] Azeb Hall, MARTIN 505 [place] [address] 01/11/2025 1:00 PM EST Office Visit [address] [address] Sariah Vickers ANP [address] [place] [address] 02/03/2025 11:00 AM EST Medication Management [address] [address] Yuri Pierre, PharmD 230 [place] [address] documented as of this encounter Goals Goal Patient Goal Type Associated Problems Recent Progress Patient-Stated? Author Blood Pressure < 140/90 Blood Pressure 140/90(2024 1:50 PM EDT) No Aida Ragland, PharmD Record Your Blood Sugar As Directed General No Phanis-Aiad Medina, PharmD Hemoglobin A1c < 7 Result Component 6.6( 1:54 PM EDT) No Aida Ragland PharmD documented as of this encounter Visit Diagnoses Not on filedocumented in this encounter Care Teams Senior Gis Analyst Relationship Specialty Start Date End Date Sariah Vickers ANP 230 [place] [address] PCP - General Family Medicine 09/23/19 Yuri Pierre, PharmD 230 [place] [address] Pharmacist Internal Medicine 05/05/24 Basilio Hall MD 596 [place] [address] Cardiology 05/17/24 Ron Preciado MD [address] [place] [address] Pulmonary Disease 05/17/24 documented as of this encounter
--- OUTSIDE RECORDS SUMMARY | 2024-11-01 10:46 | XMS_ITS | Encounter Summary ---
Author Organization [employer] Address 75 [facility] 7t [place] [address] Care Team Providers Care Vending Machine Refiller Name Role Phone Sariah Vickers Primary Care Provider [phone] Yuri Pierre PharmD Unavailable [phone] Basilio Hall MD Unavailable [phone] Ron Preciado MD Unavailable [phone] Reason for Visit * Reason Comments Med Refill Encounter Details Date Type Department Care Team (Late st Contact Info) Description 07/12/2022 Refill [facility] 230 [place] [address] Sariah Vickers ANP 230 [place] [address] Social History Tobacco Use Types Packs/Day Years [...] Description 11/01/2024 2:45 PM EDT Office Visit [address] [address] Reta Sue MD [address] [place] [address] 11/05/2024 2:30 PM EDT Office Visit [address] [address] Hallie Tapia MD [address] [place] [address] 11/12/2024 9:30 AM EDT Clinical Support [address] [address] Azeb Hall RN [address] [place] [address] 01/11/2025 1:00 PM EST Office Visit [address] [address] Sariah Vickers ANP [address] [place] [address] 02/03/2025 11:00 AM EST Medication Management [address] [address] Yuri Pierre PharmD [address] [place] [address] documented as of this encounter Visit Diagnoses Not on filedocumented in this encounter Care Teams Vending Machine Refiller Relationship Specialty Start Date End Date Sariah Vickers ANP [address] [place] [address] PCP - General Family Medicine 09/23/19 Yuri Pierre, PharmD [address] [place] [address] Pharmacist Internal Medicine 05/05/24 Basilio Hall MD 596 [place] [address] Cardiology 05/17/24 Ron Preciado MD [address] [place] [address] Pulmonary Disease 05/17/24 documented as of this encounter
--- OUTSIDE RECORDS SUMMARY | 2024-11-01 10:46 | XMS_ITS | Encounter Summary ---
Author Organization [employer] Address 75 [facility] 7t [place] [address] Care Team Providers Care Dinkey Engine Mechanic Name Role Phone Sariah Vickers Primary Care Provider [phone] Yuri Pierre PharmD Unavailable [phone] Basilio Hall MD Unavailable [phone] Ron Preciado MD Unavailable [phone] Reason for Visit * Reason Comments Med Refill Encounter Details Date Type Department Care Team (Late st Contact Info) Description 08/14/2022 Refill [facility] [address] [place] [address] Sariah Vickers ANP 230 [place] [address] Severe persistent asthma without complication Social History [...] 11/01/2024 2:45 PM EDT Office Visit [address] [address] Reta Sue MD [address] [place] [address] 11/05/2024 2:30 PM EDT Office Visit [address] [address] Hallie Tapia MD [address] [place] [address] 11/12/2024 9:30 AM EDT Clinical Support [address] [address] Azeb Hall, MARTIN 505 [place] [address] 01/11/2025 1:00 PM EST Office Visit [address] [address] Sariah Vickers ANP [address] [place] [address] 02/03/2025 11:00 AM EST Medication Management [address] [address] Yuri Pierre, MikeD [address] [place] [address] documented as of this encounter Visit Diagnoses Diagnosis Severe persistent asthma without complication documented in this encounter Care Teams Dinkey Engine Mechanic Relationship Specialty Start Date End Date Sariah Vickers ANP [address] [place] [address] PCP - General Family Medicine 09/23/19 Yuri Pierre, PharmD 230 [place] [address] Pharmacist Internal Medicine 05/05/24 Basilio Hall MD 596 [place] [address] Cardiology 05/17/24 Ron Preciado MD [address] [place] [address] Pulmonary Disease 05/17/24 documented as of this encounter
--- OUTSIDE RECORDS SUMMARY | 2024-11-01 10:46 | XMS_ITS | Encounter Summary ---
Author Organization [employer] Address 75 [facility] 7t [place] [address] Care Team Providers Care Filler Shredder Helper Name Role Phone Sariah Vickers Primary Care Provider [phone] Yuri Pierre PharmD Unavailable [phone] Basilio Hall MD Unavailable [phone] Ron Preciado MD Unavailable [phone] Reason for Visit * Reason Onset Date Comments Med Refill Durable Medical Equipment 07/15/2023 Foam M attress/Raised Toilet Seat Encounter Details Date Type Department Care Team (Late st Contact Info) Description 07/15/2023 Refill [facility] MED[facility]INE 230 [place], [place] [phone] Sariah Vickers ANP 230 [place] [address] Neck pain Social History Tobacco Use Types [...] Please see request sent via email by [facility] President [employer] Arlin Baker. Please Advise. Good morning, Our [...] Description 11/01/2024 2:45 PM EDT Office Visit [facility] 230 [place] [address] Reta Sue MD [address] [place] [address] 11/05/2024 2:30 PM EDT Office Visit [address] [address] Hallie Tapia MD [address] [place] [address] 11/12/2024 9:30 AM EDT Clinical Support [address] [address] Azeb Hall, MARTIN 505 [place] [address] 01/11/2025 1:00 PM EST Office Visit [address] [address] Sariah Vickers ANP [address] [place] [address] 02/03/2025 11:00 AM EST Medication Management [address] [address] Yuri Pierre, Dileep [address] [place] [address] documented as of this encounter Goals Goal [...] documented as of this encounter Care Teams Filler Shredder Helper Relationship Specialty Start Date End Date Sariah Vickers ANP [address] [place] [address] PCP - General Family Medicine 09/23/19 Yuri Pierre, MikeD 230 [place], [place] [phone] Pharmacist Internal Medicine 05/05/24 Basilio Hall MD 596 [place], [place] [phone] Cardiology 05/17/24 Ron Preciado MD [address] [place] [address] 2548040 Pulmonary Disease 05/17/24 documented as of this encounter
--- OUTSIDE RECORDS SUMMARY | 2024-11-01 10:46 | XMS_ITS | Encounter Summary ---
Author Organization [employer] Address 75 [facility] 7t [place] [address] Care Team Providers Care Patient Carrier Name Role Phone Sariah Vickers Primary Care Provider [phone] Yuri Pierre PharmD Unavailable [phone] Basilio Hall MD Unavailable [phone] Ron Preciado MD Unavailable [phone] Reason for Visit * Reason Comments Med Refill Encounter Details Date Type Department Care Team (Late st Contact Info) Description 05/09/2023 Refill [facility] MEDICINE 230 [place] [address] Sariah Vickers ANP 230 [place] [address] High cholesterol Social History Tobacco Use Types [...] Description 11/01/2024 2:45 PM EDT Office Visit [address] [address] Reta Sue MD [address] [place] [address] 11/05/2024 2:30 PM EDT Office Visit [address] [address] Hallie Tapia MD [address] [place] [address] 11/12/2024 9:30 AM EDT Clinical Support [address] [address] Azeb Hall, MARTIN 505 [place] [address] 01/11/2025 1:00 PM EST Office Visit [address] [address] Sariah Vickers ANP [address] [place] [address] 02/03/2025 11:00 AM EST Medication Management [address] [address] Yuri Pierre, PharmD 230 [place] [address] documented as of this encounter Goals Goal [...] hypercholesterolemia documented in this encounter Care Teams Patient Carrier Relationship Specialty Start Date End Date Sariah Vickers ANP 230 [place] [address] PCP - General Family Medicine 09/23/19 Yuri Pierre, PharmD 230 [place] [address] Pharmacist Internal Medicine 05/05/24 Basilio Hall MD 596 [place] [address] Cardiology 05/17/24 Ron Preciado MD [address] [place] [address] Pulmonary Disease 05/17/24 documented as of this encounter
--- OUTSIDE RECORDS SUMMARY | 2024-11-01 10:46 | XMS_ITS | Encounter Summary ---
Author Organization [employer] Address 75 [facility] 7t [place] [address] Care Team Providers Care [address] Worker Name Role Phone Sariah Vickers Primary Care Provider [phone] Yuri Pierre PharmD Unavailable [phone] Basilio Hall MD Unavailable [phone] Ron Preciado MD Unavailable [phone] Reason for Visit * Reason Comments Med Refill Encounter Details Date Type Department Care Team (Late st Contact Info) Description 07/10/[address] [facility] 230 [place] [address] Sariah Vickers ANP 230 [place], [place] [phone] Chronic SI joint pain Social History Tobacco [...] Description 11/01/2024 2:45 PM EDT Office Visit [address] [address] Reta Sue MD [address] [place] [address] 11/05/2024 2:30 PM EDT Office Visit [address] [address] Hallie Tapia MD [address] [place] [address] 11/12/2024 9:30 AM EDT Clinical Support [address] [address] Azeb Hall RN [address] [place] [address] 01/11/2025 1:00 PM EST Office Visit [address] [address] Sariah Vickers ANP [address] [place] [address] 02/03/2025 11:00 AM EST Medication Management [facility] 230 [place] [address] Yuri Pierre, PharmD 230 [place] [address] documented as of this encounter Goals Goal [...] documented as of this encounter Care Teams Drive Worker Relationship Specialty Start Date End Date Sariah Vickers ANP 230 [place] [address] PCP - General Family Medicine 09/23/19 Yuri Pierre, PharmD 230 [place] [address] Pharmacist Internal Medicine 05/05/24 Basilio Hall MD 596 [place] [address] Cardiology 05/17/24 Ron Preciado MD [address] [place] [address] Pulmonary Disease 05/17/24 documented as of this encounter
--- OUTSIDE RECORDS SUMMARY | 2024-11-01 10:46 | XMS_ITS | Encounter Summary ---
Author Organization [employer] Address 75 [facility] 7t [place] [address] Care Team Providers Care Coal Pulverizing Operator Name Role Phone Sariah Vickers Primary Care Provider [phone] Yuri Pierre PharmD Unavailable [phone] Basilio Hall MD Unavailable [phone] Ron Preciado MD Unavailable [phone] Reason for Visit * Reason Comments Med Refill Encounter Details Date Type Department Care Team (Late st Contact Info) Description 07/17/2022 Refill [facility] MED[facility]INE 230 [place] [address] Sariah Vickers ANP 230 [place] [address] Neck pain Social History Tobacco Use Types [...] or Strnog 12/17/2021 10 :16 AM EDT COVID-19 Exposure [...] 11/01/2024 2:45 PM EDT Office Visit [address] [address] Reta Sue MD [address] [place] [address] 11/05/2024 2:30 PM EDT Office Visit [address] [address] Hallie Tapia MD [address] [place] [address] 11/12/2024 9:30 AM EDT Clinical Support [address] [address] Azeb Hall RN [address] [place] [address] 01/11/2025 1:00 PM EST Office Visit [address] [address] Sariah Vickers ANP [address] [place] [address] 02/03/2025 11:00 AM EST Medication Management [address] [address] Yuri Pierre PharmD [address] [place] [address] documented as of this encounter Visit Diagnoses Diagnosis Neck pain Cervicalgia documented in this encounter Care Teams Coal Pulverizing Operator Relationship Specialty Start Date End Date Sariah Vickers ANP [address] [place] [address] PCP - General Family Medicine 09/23/19 Yuri Pierre, PharmD [address] [place] [address] Pharmacist Internal Medicine 05/05/24 Basilio Hall MD [address] [place] [address] Cardiology 05/17/24 Ron Preciado MD [address] [place] [address] Pulmonary Disease 05/17/24 documented as of this encounter
--- OUTSIDE RECORDS SUMMARY | 2024-11-01 10:46 | XMS_ITS | Encounter Summary ---
Author Organization [employer] Address 75 [facility] 7t [place] [address] Care Team Providers Care Scratch Brusher Name Role Phone Sariah Vickers Primary Care Provider [phone] Yuri Pierre PharmD Unavailable [phone] Basilio Hall MD Unavailable [phone] Ron Preciado MD Unavailable [phone] Reason for Visit * Reason Onset Date Comments Referral 05/17/2022 Encounter Details Date Type Department Care Team (Late st Contact Info) Description 05/17/2022 Telephone [facility] 230 [place] [address] Sariah Vickers ANP 230 [place], [place] [phone] Referral Social History Tobacco Use Types Packs/Day [...] guide to vertigo. Please contact pt at [phone] documented in this encounter Plan of Treatment Upcoming Encounters Date Type Department Care Team (Late st Contact Info) Description 11/01/2024 2:45 PM EDT Office Visit [address] [address] Reta Sue MD [address] [place] [address] 11/05/2024 2:30 PM EDT Office Visit [address] [address] Hallie Tapia MD [address] [place] [address] 11/12/2024 9:30 AM EDT Clinical Support [address] [address] Azeb Hall, RN 505 [place] [address] 01/11/2025 1:00 PM EST Office Visit [address] [address] Sariah Vickers ANP [address] [place] [address] 02/03/2025 11:00 AM EST Medication Management [address] [address] Yuri Pierre, PharmD [address] [place] [address] documented as of this encounter Visit Diagnoses Not on filedocumented in this encounter Care Teams Scratch Brusher Relationship Specialty Start Date End Date Sariah Vickers ANP 230 [place] [address] PCP - General Family Medicine 09/23/19 Yuri Pierre, Dileep 230 [place], [place] [phone] Pharmacist Internal Medicine 05/05/24 Basilio Hall MD 596 [place] [address] Cardiology 05/17/24 Ron Preciado MD [address] [place] [address] Pulmonary Disease 05/17/24 documented as of this encounter
== END 2024-11-01 09:14 | disposition home or self-care (01) ==
LOC: HO.HMGAL 09:09
PROVIDERS: PCP Nurse Practitioner Primary Care; Visit Provider Registered Nurse Emergency
DX: J30.89 Other allergic rhinitis (principal)
CPT/HCPCS: 95117; 95165

== ENCOUNTER 2024-11-01 17:46 | Outpatient (REF) | payer OTHER, SELFPAY ==
--- OUTSIDE RECORDS SUMMARY | 2024-11-01 14:45 | XMS_ITS | Encounter Summary ---
Author Organization [employer] Address 75 [facility] 7t [place] [address] Care Team Providers Care Inspector Motor Vehicles Name Role Phone Sariah Vickers KAYLEE Primary Care Provider [phone] Yuri Pierre PharmD Unavailable [phone] Basilio Hall MD Unavailable [phone] Ron Preciado MD Unavailable [phone] Reason for Visit * Reason Comments sick visit Encounter Details Date Type Department Care Team (Late st Contact Info) Description 11/01/2024 2:45 PM EDT Office Visit [facility] 230 [place] [address] Reta Sue MD 230 [place], [place] [phone] Vulvar itching (Primary Dx); Dietary counseling; Exercise counseling; Class 2 obesity without serious comorbidity with body mass index (BMI) of 35.0 to 35.9 in adult, unspecified obesity type Social History Tobacco Use Types Packs/Day Years [...] Sign Reading Time Taken Comments Blood Pressure 120/80 11/01/2024 2:59 PM EDT Pulse 80 11/01/2024 2:59 PM EDT Temperature 36.8 C (98.3 F) 11/01/2024 2:59 PM EDT Respiratory Rate 20 11/01/2024 2:59 PM EDT Oxygen Saturation - - Inhaled Oxygen Concentration - - Weight 93.8 kg (206 lb 12.8 oz) 11/01/2024 2:59 PM EDT Height 160 cm (5' 3 ) 11/01/2024 2:59 PM EDT Body Mass Index 36.63 11/01/2024 2:59 PM EDT documented in this encounter Plan of Treatment Upcoming Encounters Date Type Department Care Team (Late st Contact Info) Description 11/05/2024 2:30 PM EDT Office Visit [facility] 230 [place] [address] Hallie Tapia MD [address] [place] [address] 11/12/2024 9:30 AM EDT Clinical Support [address] [address] Azeb Hall RN 505 [place] [address] 01/11/2025 1:00 PM EST Office Visit [address] [address] Sariah Vickers ANP [address] [place] [address] 02/03/2025 11:00 AM EST Medication Management [address] [phone] Yuri Pierre PharmD [address] [place] [address] Scheduled Orders Name Type Priority Associated Diagnoses Orde r Schedule Bacterial Vaginosis Panel Microbiology Routine Vulvar itching Ordered: 11/01/2024 documented as of this encounter Goals Goal Patient Goal Type Associated Problems Recent Progress Patient-Stated? Author Blood Pressure < 140/90 Blood Pressure 120/80(2024 2:59 PM EDT) No Phanis-Gambl e, Aida, PharmD Record Your Blood Sugar As Directed General No Phanis-Gambl eVeronicasa, PharmD Hemoglobin A1c < 7 Result Component 6.6( 1:54 PM EDT) No Piers-Gambl e, Aida, PharmD documented as of this encounter Visit Diagnoses Diagnosis Vulvar itching- Primary Dietary counseling Dietary surveillance and counseling Exercise counseling Class 2 obesity without serious comorbidity with body mass index (BMI) of 35.0 to 35.9 in adult, unspecified obesity type documented in this encounter Additional Health Concerns Assessment Noted Time PHQ-9 Depression Total Score: 11 025 5:30 PM EDT documented as of this encounter Care Teams Inspector Motor Vehicles Relationship Specialty Start Date End Date Sariah Vickers ANP [address] [place] [address] PCP - General Family Medicine 09/23/19 Yuri Pierre, MikeD 230 [place] [address] Pharmacist Internal Medicine 05/05/24 Basilio Hall MD 5[address] [place] [address] Cardiology 05/17/24 Ron Preciado MD [address] [place] [address] Pulmonary Disease 05/17/24 documented as of this encounter
--- OUTSIDE RECORDS SUMMARY | 2024-11-01 21:46 | XMS_ITS | Encounter Summary ---
Author Organization [employer] Address 75 [facility] 7t [place] [address] Care Team Providers Care Food Clerk Name Role Phone Sariah Vickers Primary Care Provider [phone] Yuri Pierre PharmD Unavailable [phone] Basilio Hall MD Unavailable [phone] Ron Preciado MD Unavailable [phone] Reason for Visit * Reason Comments Med Refill Encounter Details Date Type Department Care Team (Late st Contact Info) Description 09/13/2022 Refill [facility] [address] [place] [address] Sariah Vickers ANP 230 [place] [address] Severe persistent allergic asthma without complication Social [...] 11/05/2024 2:30 PM EDT Office Visit [address] [address] Hallie Tapia MD [address] [place] [address] 11/12/2024 9:30 AM EDT Clinical Support [address] [address] Azeb Hall RN 505 [place] [address] 01/11/2025 1:00 PM EST Office Visit [address] [address] Sariah Vickers ANP [address] [place] [address] 02/03/2025 11:00 AM EST Medication Management [address] [address] Yuri Pierre PharmD [address] [place] [address] documented as of this encounter Visit Diagnoses Diagnosis Severe persistent allergic asthma without complication documented in this encounter Care Teams Food Clerk Relationship Specialty Start Date End Date Sariah Vickers ANP [address] [place] [address] PCP - General Family Medicine 09/23/19 Yuri Pierre, PharmD [address] [place] [address] Pharmacist Internal Medicine 05/05/24 Basilio Hall MD 596 [place] [address] Cardiology 05/17/24 Ron Preciado MD [address] [place] [address] Pulmonary Disease 05/17/24 documented as of this encounter
--- OUTSIDE RECORDS SUMMARY | 2024-11-01 21:46 | XMS_ITS | Encounter Summary ---
Author Organization [employer] Address 75 [facility] 7t [place] [address] Care Team Providers Care Cell Tender Name Role Phone Sariah Vickers Primary Care Provider [phone] Yuri Pierre PharmD Unavailable [phone] Basilio Hall MD Unavailable [phone] Ron Preciado MD Unavailable [phone] Reason for Visit * Reason Onset Date Comments Med Refill 09/18/2023 Encounter Details Date Type Department Care Team (Late st Contact Info) Description 09/18/2023 Telephone [facility] MEDICINE 230 [place], [place] [phone] Sariah Vickers ANP 230 [place], [place] [phone] Med Refill Social History Tobacco Use Types [...] refill : Tramadol To be sent to: [facility] - [place], [place] - [address] [place] [address] documented in this encounter Plan of Treatment Upcoming Encounters Date Type Department Care Team ([facility] st Contact Info) Description 11/05/2024 2:30 PM EDT Office Visit [address] [address] Hallie Tapia MD [address] [place] [address] 11/12/2024 9:30 AM EDT Clinical Support [address] [address] Azeb Hall RN 505 [place] [address] 01/11/2025 1:00 PM EST Office Visit [address] [place] [address] Sariah Vickers ANP 230 [place] [address] 02/03/2025 11:00 AM EST Medication Management [facility] MEDICINE 230 [place] [address] Yuri Pierre, MikeD 230 [place] [address] documented as of this encounter Goals Goal Patient Goal Type Associated Problems Recent Progress Patient-Stated? Author Blood Pressure < 140/90 Blood Pressure 120/80(2024 2:59 PM EDT) No Aida Ragland PharmBear Record [...] documented as of this encounter Care Teams Cell Tender Relationship Specialty Start Date End Date Sariah Vickers ANP [address] [place] [address] PCP - General Family Medicine 09/23/19 Yuri Pierre, PharmD [address] [place] [address] Pharmacist Internal Medicine 05/05/24 Basilio Hall MD 596 [place] [address] Cardiology 05/17/24 Ron Preciado MD [address] [place] [address] Pulmonary Disease 05/17/24 documented as of this encounter
--- OUTSIDE RECORDS SUMMARY | 2024-11-01 21:46 | XMS_ITS | Encounter Summary ---
Author Organization [employer] Address 75 [facility] 7t [place] [address] Care Team Providers Care Nut Roaster Helper Name Role Phone Sariah Vickers Primary Care Provider [phone] Yuri Pierre PharmD Unavailable [phone] Basilio Hall MD Unavailable [phone] Ron Preciado MD Unavailable [phone] Reason for Visit * Reason Comments Med Refill Encounter Details Date Type Department Care Team (Late st Contact Info) Description 10/17/2023 Refill [facility] MEDICINE 230 [place] [address] Sariah Vickers ANP 230 [place] [address] Neck pain Social History Tobacco Use Types [...] 11/05/2024 2:30 PM EDT Office Visit [address] [address] Hallie Tapia MD [address] [place] [address] 11/12/2024 9:30 AM EDT Clinical Support [address] [address] Azeb Hall RN 505 [place] [address] 01/11/2025 1:00 PM EST Office Visit [address] [address] Sariah Vickers, ANP [address] [place] [address] 02/03/2025 11:00 AM EST Medication Management [address] [address] Yuri Pierre, PharmD [address] [place] [address] documented as of this encounter Goals Goal Patient Goal Type Associated Problems Recent Progress Patient-Stated? Author Blood Pressure < 140/90 Blood Pressure 120/80(2024 2:59 PM EDT) No Aida Ragland PharmD Record [...] documented as of this encounter Care Teams Nut Roaster Helper Relationship Specialty Start Date End Date Sariah Vickers ANP [address] [place] [address] PCP - General Family Medicine 09/23/19 Yuri Pierre PharmD [address] [place] [address] Pharmacist Internal Medicine 05/05/24 Basilio Hall MD [address] [place] [address] Cardiology 05/17/24 Ron Preciado MD [address] [place] [address] Pulmonary Disease 05/17/24 documented as of this encounter
--- OUTSIDE RECORDS SUMMARY | 2024-11-01 21:46 | XMS_ITS | Encounter Summary ---
Author Organization [employer] Address 75 [facility] 7t [place] [address] Care Team Providers Care Service Order Clerk Name Role Phone Sariah Vickers Primary Care Provider [phone] Yuri Pierre PharmD Unavailable [phone] Basilio Hall MD Unavailable [phone] Ron Preciado MD Unavailable [phone] Encounter Details Date Type Department Care Team (Latest Contact Info) Description 05/15/2018 Abstract [facility] CONVERSIONS Dental, Provider, DDS Social [...] Description 11/05/2024 2:30 PM EDT Office Visit [facility] MEDICINE [address] [place] [address] Hallie Tapia MD [address] [place] [address] 11/12/2024 9:30 AM EDT Clinical Support [facility] MEDICINE [address] [place] [address] Azeb Hall RN 505 [place] [address] 01/11/2025 1:00 PM EST Office Visit [address] [address] Sariah Vickers ANP [address] [place] [address] 02/03/2025 11:00 AM EST Medication Management [address] [address] Yuri Pierre, Dileep [address] [place] [address] documented as of this encounter Visit Diagnoses Not on filedocumented in this encounter Care Teams Service Order Clerk Relationship Specialty Start Date End Date Sariah Vickers ANP [address] [place] [address] PCP - General Family Medicine 09/23/19 Yuri Pierre, PharmD [address] [place] [address] Pharmacist Internal Medicine 05/05/24 Basilio Hall MD 596 [place] [address] Cardiology 05/17/24 Ron Preciado MD [address] [place] [address] Pulmonary Disease 05/17/24 documented as of this encounter
--- OUTSIDE RECORDS SUMMARY | 2024-11-01 21:46 | XMS_ITS | Encounter Summary ---
Author Organization [employer] Address 75 [facility] 7t [place] [address] Care Team Providers Care Pharmacy Customer Care Specialist Name Role Phone Sariah Vickers Primary Care Provider [phone] Yuri Pierre PharmD Unavailable [phone] Basilio Hall MD Unavailable [phone] Ron Preciado MD Unavailable [phone] Reason for Visit * Reason Comments Med Refill Encounter Details Date Type Department Care Team (Late st Contact Info) Description 02/06/2022 Refill [facility] MEDICINE 230 [place] [address] Sariah Vickers ANP 230 [place] [address] Social History Tobacco Use Types Packs/Day Years [...] 11/05/2024 2:30 PM EDT Office Visit [address] [address] Hallie Tapia MD [address] [place] [address] 11/12/2024 9:30 AM EDT Clinical Support [address] [address] Azeb Hall RN 505 [place] [address] 01/11/2025 1:00 PM EST Office Visit [address] [address] Sariah Vickers ANP [address] [place] [address] 02/03/2025 11:00 AM EST Medication Management [address] [address] Yuri Pierre, Dileep [address] [place] [address] documented as of this encounter Visit Diagnoses Not on filedocumented in this encounter Care Teams Pharmacy Customer Care Specialist Relationship Specialty Start Date End Date Sariah Vickers ANP [address] [place] [address] PCP - General Family Medicine 09/23/19 Yuri Pierre, PharmD [address] [place] [address] Pharmacist Internal Medicine 05/05/24 Basilio Hall MD 5[address] [place] [address] Cardiology 05/17/24 Ron Preciado MD [address] [place] [address] Pulmonary Disease 05/17/24 documented as of this encounter
--- OUTSIDE RECORDS SUMMARY | 2024-11-01 21:46 | XMS_ITS | Encounter Summary ---
Author Organization [employer] Address 75 [facility] 7t [place] [address] Care Team Providers Care Die Try Out Worker Stamping Name Role Phone Sariah Vickers Primary Care Provider [phone] Yuri Pierre PharmD Unavailable [phone] Basilio Hall MD Unavailable [phone] Ron Preciado MD Unavailable [phone] Reason for Visit * Reason Comments Med Refill Encounter Details Date Type Department Care Team (Late st Contact Info) Description 10/03/2023 Refill [facility] 230 [place] [address] Sariah Vickers ANP 230 [place], [place] [phone] Chronic SI joint pain Social History Tobacco [...] 11/05/2024 2:30 PM EDT Office Visit [address] [address] Hallie Tapia MD [address] [place] [address] 11/12/2024 9:30 AM EDT Clinical Support [address] [address] Azeb Hall RN 505 [place] [address] 01/11/2025 1:00 PM EST Office Visit [address] [address] Sariah Vickers, KAYLEE [address] [place] [address] 02/03/2025 11:00 AM EST Medication Management [address] [address] Yuri Pierre, PharmD [address] [place] [address] documented as of this encounter Goals Goal Patient Goal Type Associated Problems Recent Progress Patient-Stated? Author Blood Pressure < 140/90 Blood Pressure 120/80(2024 2:59 PM EDT) No Phanis-Gambl Aida urbina, PharmD [...] documented as of this encounter Care Teams Die Try Out Worker Stamping Relationship Specialty Start Date End Date Sariah Vickers ANP 230 [place] [address] PCP - General Family Medicine 09/23/19 Yuri Pierre, MikeD [address] [place] [address] Pharmacist Internal Medicine 05/05/24 Basilio Hall MD 596 [place] [address] Cardiology 05/17/24 Ron Preciado MD [address] [place] [address] Pulmonary Disease 05/17/24 documented as of this encounter
--- OUTSIDE RECORDS SUMMARY | 2024-11-01 21:46 | XMS_ITS | Encounter Summary ---
Author Organization [employer] Address 75 [facility] 7t [place] [address] Care Team Providers Care Colored Leather Setter Name Role Phone Sariah Vickers Primary Care Provider Yuri Pierre PharmD Unavailable [phone] Basilio Hall MD Unavailable [phone] Ron Preciado MD Unavailable [phone] Encounter Details Date Type Department Care Team (Latest Contact Info) Description 04/14/2020 Abstract [facility] CONVERSIONS Dental, Provider, DDS Social [...] 2:30 PM EDT Office Visit [facility] MEDICINE [address] [place] [address] Hallie Tapia MD [address] [place] [address] 11/12/2024 9:30 AM EDT Clinical Support [facility] MEDICINE [address] [place] [address] Azeb Hall RN 505 [place] [address] 01/11/2025 1:00 PM EST Office Visit [address] [address] Sariah Vickers ANP [address] [place] [address] 02/03/2025 11:00 AM EST Medication Management [address] [address] Yuri Peirre, PharmBear [address] [place] [address] documented as of this encounter Visit Diagnoses Not on filedocumented in this encounter Care Teams Colored Leather Setter Relationship Specialty Start Date End Date Sariah Vickers ANP [address] [place] [address] PCP - General Family Medicine 09/23/19 Yuri Pierre, PharmD [address] [place] [address] Pharmacist Internal Medicine 05/05/24 Basilio Hall MD 6 [place] [address] Cardiology 05/17/24 Ron Preciado MD [address] [place] [address] Pulmonary Disease 05/17/24 documented as of this encounter
--- OUTSIDE RECORDS SUMMARY | 2024-11-01 21:46 | XMS_ITS | Encounter Summary ---
Author Organization [employer] Address 75 [facility] 7t [place] [address] Care Team Providers Care Skein Yarn Dyer Helper Name Role Phone Sariah Vickers Primary Care Provider [phone] Yuri Pierre PharmD Unavailable [phone] Basilio Hall MD Unavailable [phone] Ron Preciado MD Unavailable [phone] Reason for Visit * Reason Comments Med Refill Encounter Details Date Type Department Care Team (Late st Contact Info) Description 11/24/2023 Refill [facility] MEDICINE 230 [place] [address] Sariah Vickers ANP 230 [place] [address] Vertigo Social History Tobacco Use Types Packs/Day [...] 11/05/2024 2:30 PM EDT Office Visit [address] [address] Hallie Tapia MD [address] [place] [address] 11/12/2024 9:30 AM EDT Clinical Support [address] [address] Azeb Hall RN 505 [place] [address] 01/11/2025 1:00 PM EST Office Visit [address] [address] Sariah Vickers, ANP [address] [place] [address] 02/03/2025 11:00 AM EST Medication Management [address] [address] Yuri Pierre, PharmD [address] [place] [address] documented as of this encounter Goals Goal Patient Goal Type Associated Problems Recent Progress Patient-Stated? Author Blood Pressure < 140/90 Blood Pressure 120/80(2024 2:59 PM EDT) No Aida Ragland, PharmD Record [...] documented as of this encounter Care Teams Skein Yarn Dyer Helper Relationship Specialty Start Date End Date Sariah Vickers ANP 230 [place] [address] PCP - General Family Medicine 09/23/19 Yuri Pierre, MikeD [address] [place] [address] Pharmacist Internal Medicine 05/05/24 Basilio Hall MD [address] [place] [address] Cardiology 05/17/24 Ron Preciado MD [address] [place] [address] Pulmonary Disease 05/17/24 documented as of this encounter
--- OUTSIDE RECORDS SUMMARY | 2024-11-01 21:46 | XMS_ITS | Encounter Summary ---
Author Organization [employer] Address 75 [facility] 7t [place] [address] Care Team Providers Care Cotton Dispatcher Name Role Phone Sariah Vickers Primary Care Provider [phone] Yuri Pierre PharmD Unavailable [phone] Basilio Hall MD Unavailable [phone] Ron Preciado MD Unavailable [phone] Reason for Visit * Reason Comments Med Refill Encounter Details Date Type Department Care Team (Late st Contact Info) Description 12/17/2023 Refill [facility] MEDICINE 230 [place] [address] Sariah Vickers ANP 230 [place] [address] Chronic SI joint pain Social History Tobacco [...] 11/05/2024 2:30 PM EDT Office Visit [address] [address] Hallie Tapia MD [address] [place] [address] 11/12/2024 9:30 AM EDT Clinical Support [address] [address] Azeb Hall RN [address] [place] [address] 01/11/2025 1:00 PM EST Office Visit [address] [address] Sariah Vickers, KAYLEE [address] [place] [address] 02/03/2025 11:00 AM EST Medication Management [address] [address] Yuri Pierre, PharmD [address] [place] [address] documented as of this encounter Goals Goal [...] as of this encounter Care Teams Cotton Dispatcher Relationship Specialty Start Date End Date Sariah Vickers ANP 230 [place] [address] PCP - General Family Medicine 09/23/19 Yuri Pierre, MikeD 230 [place] [address] Pharmacist Internal Medicine 05/05/24 Basilio Hall MD 596 [place] [address] Cardiology 05/17/24 Ron Preciado MD [address] [place] [address] Pulmonary Disease 05/17/24 documented as of this encounter
--- OUTSIDE RECORDS SUMMARY | 2024-11-01 21:46 | XMS_ITS | Encounter Summary ---
Author Organization [employer] Address 75 [facility] 7t [place] [address] Care Team Providers Care Marketing Technology Coordinator Name Role Phone Sariah Vickers Primary Care Provider [phone] Yuri Pierre PharmD Unavailable [phone] Basilio Hall MD Unavailable [phone] Ron Preciado MD Unavailable [phone] Reason for Visit * Reason Comments Med Refill Encounter Details Date Type Department Care Team (Late st Contact Info) Description 11/26/2023 Refill [facility] MEDICINE 230 [place] [address] Sariah Vickers ANP 230 [place] [address] Vertigo Social History Tobacco Use Types Packs/Day [...] Description 11/05/2024 2:30 PM EDT Office Visit [address] [address] Hallie Tapia MD [address] [place] [address] 11/12/2024 9:30 AM EDT Clinical Support [address] [address] Azeb Hall RN 505 [place] [address] 01/11/2025 1:00 PM EST Office Visit [address] [address] Sariah Vickers, ANP [address] [place] [address] 02/03/2025 11:00 AM EST Medication Management [address] [address] Yuri Pierre, PharmD [address] [place] [address] documented as of this encounter Goals Goal [...] as of this encounter Care Teams Marketing Technology Coordinator Relationship Specialty Start Date End Date Sariah Vickers ANP 230 [place] [address] PCP - General Family Medicine 09/23/19 Yuri Pierre, MikeD [address] [place] [address] Pharmacist Internal Medicine 05/05/24 Basilio Hall MD [address] [place] [address] Cardiology 05/17/24 Ron Preciado MD [address] [place] [address] Pulmonary Disease 05/17/24 documented as of this encounter
--- OUTSIDE RECORDS SUMMARY | 2024-11-01 21:46 | XMS_ITS | Encounter Summary ---
Author Organization [employer] Address 75 [facility] 7t [place] [address] Care Team Providers Care Electromechanical Technologist Name Role Phone Sariah Vickers Primary Care Provider [phone] Yuri Pierre PharmD Unavailable [phone] Basilio Hall MD Unavailable [phone] Ron Preciado MD Unavailable [phone] Reason for Visit * Reason Comments Med Refill Patient walked [facility] pharmacy hasn't finished her Medbox due to missing refill for medication Gabapetin . Encounter Details Date Type Department Care Team (Late st Contact Info) Description 10/03/2023 Refill [facility]ALK[facility] 230 [place], [place] [phone] Sariah Vickers ANP 230 [place], [place] [phone] Chronic SI joint pain Social History Tobacco [...] the past 12 months, has t he [employer] gas, oil or water company threatened to [...] Description 11/05/2024 2:30 PM EDT Office Visit [address] [address] Hallie Tapia MD [address] [place] [address] 11/12/2024 9:30 AM EDT Clinical Support [address] [address] Azeb Hall RN 505 [place] [address] 01/11/2025 1:00 PM EST Office Visit [address] [place] [address] Sariah Vickers ANP [address] [place] [address] 02/03/2025 11:00 AM EST Medication Management [facility] MEDICINE [address] [place] [address] Yuri Pierre PharmD [address] [place] [address] documented as of this encounter Goals Goal [...] documented as of this encounter Care Teams Electromechanical Technologist Relationship Specialty Start Date End Date Sariah Vickers ANP [address] [place] [address] PCP - General Family Medicine 09/23/19 Yuri Pierre, PharmD [address] [place] [address] Pharmacist Internal Medicine 05/05/24 Basilio Hall MD [address] [place] [address] Cardiology 05/17/24 Ron Preciado MD [address] [place] [address] Pulmonary Disease 05/17/24 documented as of this encounter
--- OUTSIDE RECORDS SUMMARY | 2024-11-01 21:46 | XMS_ITS | Encounter Summary ---
Author Organization [employer] Address 75 [facility] 7t [place] [address] Care Team Providers Care Dopeman Name Role Phone Sariah Vickers Primary Care Provider [phone] Yuri Pierre PharmD Unavailable [phone] Basilio Hall MD Unavailable [phone] Ron Preciado MD Unavailable [phone] Reason for Visit * Reason Comments Med Refill Encounter Details Date Type Department Care Team (Late st Contact Info) Description 08/22/2023 Refill [facility] MEDICINE 230 [place] [address] Sariah Vickers ANP 230 [place] [address] Neck pain Social History Tobacco Use Types [...] 11/05/2024 2:30 PM EDT Office Visit [address] [address] Hallie Tapia MD [address] [place] [address] 11/12/2024 9:30 AM EDT Clinical Support [address] [address] Azeb Hall RN 505 [place] [address] 01/11/2025 1:00 PM EST Office Visit [address] [address] Sariah Vickers, ANP [address] [place] [address] 02/03/2025 11:00 AM EST Medication Management [address] [address] Yuri Pierre, PharmD [address] [place] [address] documented as of this encounter Goals Goal [...] documented as of this encounter Care Teams Dopeman Relationship Specialty Start Date End Date Sariah Vickers ANP 230 [place] [address] PCP - General Family Medicine 09/23/19 Yuri Pierre PharmD [address] [place] [address] Pharmacist Internal Medicine 05/05/24 Basilio Hall MD [address] [place] [address] Cardiology 05/17/24 Ron Preciado MD [address] [place] [address] Pulmonary Disease 05/17/24 documented as of this encounter
--- OUTSIDE RECORDS SUMMARY | 2024-11-01 21:46 | XMS_ITS | Encounter Summary ---
Author Organization [employer] Address 75 [facility] 7t [place] [address] Care Team Providers Care X Ray Service Technician Name Role Phone Sariah Vickers Primary Care Provider [phone] Yuri Pierre PharmD Unavailable [phone] Basilio Hall MD Unavailable [phone] Ron Preciado MD Unavailable [phone] Reason for Visit * Reason Comments Med Refill Encounter Details Date Type Department Care Team (Late st Contact Info) Description 10/03/2023 Refill [facility] 230 [place] [address] Sariah Vickers ANP 230 [place], [place] [phone] Chronic SI joint pain Social History Tobacco [...] 11/05/2024 2:30 PM EDT Office Visit [address] [address] Hallie Tapia MD [address] [place] [address] 11/12/2024 9:30 AM EDT Clinical Support [address] [address] Azeb Hall RN 505 [place] [address] 01/11/2025 1:00 PM EST Office Visit [address] [address] Sariah Vickers, KAYLEE [address] [place] [address] 02/03/2025 11:00 AM EST Medication Management [address] [address] Yuri Pierre, PharmD [address] [place] [address] documented as of this encounter Goals Goal [...] of this encounter Care Teams X Ray Service Technician Relationship Specialty Start Date End Date Sariah Vickers ANP 230 [place] [address] PCP - General Family Medicine 09/23/19 Yuri Pierre, MikeD [address] [place] [address] Pharmacist Internal Medicine 05/05/24 Basilio Hall MD 596 [place] [address] Cardiology 05/17/24 Ron Preciado MD [address] [place] [address] Pulmonary Disease 05/17/24 documented as of this encounter
--- OUTSIDE RECORDS SUMMARY | 2024-11-01 21:46 | XMS_ITS | Encounter Summary ---
Author Organization [employer] Address 75 [facility] 7t [place] [address] Care Team Providers Care Belt Builder Helper Name Role Phone Sariah Vickers Primary Care Provider [phone] Yuri Pierre PharmD Unavailable [phone] Basilio Hall MD Unavailable [phone] Ron Preciado MD Unavailable [phone] Reason for Visit * Reason Onset Date Comments Durable Medical Equipment 03/15/2022 Encounter Details Date Type Department Care Team (Late st Contact Info) Description 03/15/2022 Telephone [facility] 230 [place] [address] Sariah Vickers ANP 230 [place], [place] [phone] Durable Medical Equipment Social History Tobacco Use [...] 11/05/2024 2:30 PM EDT Office Visit [address] [address] Hallie Tapia MD [address] [place] [address] 11/12/2024 9:30 AM EDT Clinical Support [address] [address] Azeb Hall, MARTIN 505 [place] [address] 01/11/2025 1:00 PM EST Office Visit [address] [address] Sariah Vickers ANP [address] [place] [address] 02/03/2025 11:00 AM EST Medication Management [address] [address] Yuri Pierre, MikeD [address] [place] [address] documented as of this encounter Visit Diagnoses Not on filedocumented in this encounter Care Teams Belt Builder Helper Relationship Specialty Start Date End Date Sariah Vickers ANP [address] [place] [address] PCP - General Family Medicine 09/23/19 Yuri Pierre, MikeD 230 [place] [address] Pharmacist Internal Medicine 05/05/24 Basilio Hall MD [address] [place] [address] Cardiology 05/17/24 Ron Preciado MD [address] [place] [address] Pulmonary Disease 05/17/24 documented as of this encounter
--- OUTSIDE RECORDS SUMMARY | 2024-11-01 21:46 | XMS_ITS | Encounter Summary ---
Author Organization [employer] Address 75 [facility] 7t [place] [address] Care Team Providers Care Flat Hammerer Name Role Phone Sariah Vickers Primary Care Provider [phone] Yuri Pierre PharmD Unavailable [phone] Basilio Hall MD Unavailable [phone] Ron Preciado MD Unavailable [phone] Reason for Visit * Reason Onset Date Comments Med Refill 02/04/2024 Encounter Details Date Type Department Care Team (Late st Contact Info) Description 02/04/2024 Telephone [facility] 230 [place] [address] Sariah Vickers ANP 230 [place], [place] [phone] Med Refill Social History Tobacco Use Types [...] 50 MG tablet To be sent to: [facility] - [place], [place] - [address] [place] [address] documented in this encounter Plan of Treatment Upcoming Encounters Date Type Department Care Team ([facility] st Contact Info) Description 11/05/2024 2:30 PM EDT Office Visit [facility] [address] [place] [address] Hallie Tapia MD [address] [place] [address] 11/12/2024 9:30 AM EDT Clinical Support [address] [address] Azeb Hall RN 505 [place] [address] 01/11/2025 1:00 PM EST Office Visit [address] [address] Sariah Vickers ANP 230 [place] [address] 02/03/2025 11:00 AM EST Medication Management [facility] 230 [place] [address] Yuri Pierre, PharmD 230 [place] [address] documented as of this encounter Goals Goal [...] documented as of this encounter Care Teams Flat Hammerer Relationship Specialty Start Date End Date Sariah Vickers ANP [address] [place] [address] PCP - General Family Medicine 09/23/19 Yuri Pierre, PharmD 230 [place] [address] Pharmacist Internal Medicine 05/05/24 Basilio Hall MD 596 [place] [address] Cardiology 05/17/24 Ron Preciado MD [address] [place] [address] Pulmonary Disease 05/17/24 documented as of this encounter
--- OUTSIDE RECORDS SUMMARY | 2024-11-01 21:46 | XMS_ITS | Encounter Summary ---
Author Organization [employer] Address [address] [facility] [address] 7t [place] [address] Care Team Providers Care Operating Room Tech Name Role Phone Sariah Vickers KAYLEE Primary Care Provider [phone] Yuri Pierre PharmD Unavailable [phone] Basilio Hall MD Unavailable [phone] Ron Preciado MD Unavailable [phone] Encounter Details Date Type Department Care Team (Latest Contact Info) Description 11/01/2024 Travel Social History Tobacco Use Types Packs/Day [...] 11/05/2024 2:30 PM EDT Office Visit [address] [address] Hallie Tapia MD [address] [place] [address] 11/12/2024 9:30 AM EDT Clinical Support [address] [address] Azeb Hall, MARTIN 505 [place] [address] 01/11/2025 1:00 PM EST Office Visit [address] [address] Sariah Vickers, KAYLEE [address] [place] [address] 02/03/2025 11:00 AM EST Medication Management [address] [address] Yuri Pierre, PharmD [address] [place] [address] documented as of this encounter Goals Goal [...] of this encounter Care Teams Operating Room Tech Relationship Specialty Start Date End Date Sariah Vickers ANP 230 [place] [address] PCP - General Family Medicine 09/23/19 Yuri Pierre PharmD 230 [place] [address] Pharmacist Internal Medicine 05/05/24 Basilio Hall MD 596 [place] [address] Cardiology 05/17/24 Ron Preciado MD [address] [place] [address] Pulmonary Disease 05/17/24 documented as of this encounter
--- OUTSIDE RECORDS SUMMARY | 2024-11-01 21:46 | XMS_ITS | Encounter Summary ---
Author Organization [employer] Address 75 [facility] 7t [place] [address] Care Team Providers Care Embossing 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 Name Role Phone Sariah Vickers Primary Care Provider [phone] Yuri Pierre PharmD Unavailable [phone] Basilio Hall MD Unavailable [phone] Ron Preciado MD Unavailable [phone] Reason for Visit * Reason Comments Med Refill Pt wants to know if she can keep taking prednis Encounter Details Date Type Department Care Team (Late st Contact Info) Description 06/26/2024 Refill [facility] [address] [place] [address] Sariah Vickers ANP 230 [place] [address] Cervicalgia Social History Tobacco Use Types Packs/Day [...] 11/05/2024 2:30 PM EDT Office Visit [address] [address] Hallie Tapia MD [address] [place] [address] 11/12/2024 9:30 AM EDT Clinical Support [address] [address] Azbe Hall RN 505 [place] [address] 01/11/2025 1:00 PM EST Office Visit [address] [address] Sariah Vickers, KAYLEE [address] [place] [address] 02/03/2025 11:00 AM EST Medication Management [address] [address] Yuri Pierre, PharmD [address] [place] [address] documented as of this encounter Goals Goal Patient Goal Type Associated Problems Recent Progress Patient-Stated? Author Blood Pressure < 140/90 Blood Pressure 120/80(2024 2:59 PM EDT) No Piers-Gambl e, Aida, PharmD Record Your Blood Sugar As Directed General No Piers-Gambl e, Adia, PharmD Hemoglobin A1c < 7 Result Component 6.6( 1:54 PM EDT) No Piers-Gambl e, Aida, PharmD documented as of this encounter Visit Diagnoses Diagnosis Cervicalgia documented in this encounter Additional Health Concerns Assessment Noted Time PHQ-9 Depression Total Score: 12 024 2:58 PM EDT documented as of this encounter Care Teams Embossing 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 Relationship Specialty Start Date End Date Sariah Vickers ANP 230 [place] [address] PCP - General Family Medicine 09/23/19 Yuri Pierre, MikeD 230 [place] [address] Pharmacist Internal Medicine 05/05/24 Basilio Hall MD 596 [place] [address] Cardiology 05/17/24 Ron Preciado MD [address] [place] [address] Pulmonary Disease 05/17/24 documented as of this encounter
--- OUTSIDE RECORDS SUMMARY | 2024-11-01 21:46 | XMS_ITS | Encounter Summary ---
Author Organization [employer] Address 75 [facility] 7t [place] [address] Care Team Providers Care Manager Hair Name Role Phone Sariah Vickers Primary Care Provider [phone] Yuri Pierre PharmD Unavailable [phone] Basilio Hall MD Unavailable [phone] Ron Preciado MD Unavailable [phone] Reason for Visit * Reason Comments Med Refill Encounter Details Date Type Department Care Team (Late st Contact Info) Description 10/24/2023 Refill [facility] 230 [place] [address] Sariah Vickers ANP 230 [place] [address] Neck pain Social History Tobacco Use Types [...] Description 11/05/2024 2:30 PM EDT Office Visit [address] [address] Hallie Tapia MD [address] [place] [address] 11/12/2024 9:30 AM EDT Clinical Support [address] [address] Azeb Hall RN 505 [place] [address] 01/11/2025 1:00 PM EST Office Visit [address] [address] Sariah Vickers, ANP [address] [place] [address] 02/03/2025 11:00 AM EST Medication Management [address] [address] Yuri Pierre, PharmD [address] [place] [address] documented as of this encounter Goals Goal [...] as of this encounter Care Teams Manager Hair Relationship Specialty Start Date End Date Sariah Vickers ANP [address] [place] [address] PCP - General Family Medicine 09/23/19 Yuri Pierre PharmD [address] [place] [address] Pharmacist Internal Medicine 05/05/24 Basilio Hall MD [address] [place] [address] Cardiology 05/17/24 Ron Preciado MD [address] [place] [address] Pulmonary Disease 05/17/24 documented as of this encounter
--- OUTSIDE RECORDS SUMMARY | 2024-11-01 21:46 | XMS_ITS | Encounter Summary ---
Author Organization [employer] Address 75 [facility] 7t [place] [address] Care Team Providers Care Fabric Pattern Grader Name Role Phone Sariah Vickers Primary Care Provider [phone] Yuri Pierre PharmD Unavailable [phone] Basilio Hall MD Unavailable [phone] Ron Preciado MD Unavailable [phone] Reason for Visit * Reason Comments Med Refill Encounter Details Date Type Department Care Team (Late st Contact Info) Description 01/06/2024 Refill [facility] [address] [place] [address] Sariah Vickers ANP 230 [place] [address] Cervicalgia Social History Tobacco Use Types Packs/Day [...] 11/05/2024 2:30 PM EDT Office Visit [address] [address] Hallie Tapia MD [address] [place] [address] 11/12/2024 9:30 AM EDT Clinical Support [address] [address] Azeb Hall RN [address] [place] [address] 01/11/2025 1:00 PM EST Office Visit [address] [address] Sariah Vickers, KAYLEE [address] [place] [address] 02/03/2025 11:00 AM EST Medication Management [address] [address] Yuri Pierre, PharmD [address] [place] [address] documented as of this encounter Goals Goal [...] documented as of this encounter Care Teams Fabric Pattern Grader Relationship Specialty Start Date End Date Sariah Vickers ANP 230 [place] [address] PCP - General Family Medicine 09/23/19 Yuri Pierre PharmD [address] [place] [address] Pharmacist Internal Medicine 05/05/24 Basilio Hall MD [address] [place] [address] Cardiology 05/17/24 Ron Preciado MD [address] [place] [address] Pulmonary Disease 05/17/24 documented as of this encounter
--- OUTSIDE RECORDS SUMMARY | 2024-11-01 21:46 | XMS_ITS | Encounter Summary ---
Author Organization [employer] Address 75 [facility] 7t [place] [address] Care Team Providers Care Aviation Operations Specialist Name Role Phone Sariah Vickers Primary Care Provider [phone] Yuri Pierre PharmD Unavailable [phone] Basilio Hall MD Unavailable [phone] Ron Preciado MD Unavailable [phone] Encounter Details Date Type Department Care Team (Late st Contact Info) Description 10/20/2024 Results Follow-Up [facility] 230 [place] [address] Sariah Vickers ANP 230 [place] [address] Prothrombin Time-INR, C-reactive Protein, Amylase, Additional followed-up [...] [facility] [address] [place] [address] Hallie Tapia MD [address] [place] [address] 11/12/2024 9:30 AM EDT Clinical Support [address] [address] Azeb Hall RN 505 [place] [address] 01/11/2025 1:00 PM EST Office Visit [address] [address] Sariah Vickers ANP 230 [place] [address] 02/03/2025 11:00 AM EST Medication Management [facility] 230 [place] [address] Yuri Pierre, PharmD 230 [place] [address] documented as of this encounter Goals Goal [...] documented as of this encounter Care Teams Aviation Operations Specialist Relationship Specialty Start Date End Date Sariah Vickers ANP [address] [place] [address] PCP - General Family Medicine 09/23/19 Yuri Pierre, PharmD [address] [place] [address] Pharmacist Internal Medicine 05/05/24 Basilio Hall MD 596 [place] [address] Cardiology 05/17/24 Ron Preciado MD [address] [place] [address] Pulmonary Disease 05/17/24 documented as of this encounter
--- OUTSIDE RECORDS SUMMARY | 2024-11-01 21:46 | XMS_ITS | Encounter Summary ---
Author Organization [employer] Address 75 [facility] 7t [place] [address] Care Team Providers Care Combat Systems Operator Name Role Phone Sariah Vickers Primary Care Provider [phone] Yuri Pierre PharmD Unavailable [phone] Basilio Hall MD Unavailable [phone] Ron Preciado MD Unavailable [phone] Reason for Visit * Reason Comments Med Refill Encounter Details Date Type Department Care Team (Late st Contact Info) Description 01/04/2024 Refill [facility] [address] [place] [address] Sariah Vickers ANP 230 [place] [address] Cervicalgia Social History Tobacco Use Types Packs/Day [...] 11/05/2024 2:30 PM EDT Office Visit [address] [address] Hallie Tapia MD [address] [place] [address] 11/12/2024 9:30 AM EDT Clinical Support [address] [address] Azeb Hall RN [address] [place] [address] 01/11/2025 1:00 PM EST Office Visit [address] [address] Sariah Vickers, KAYLEE [address] [place] [address] 02/03/2025 11:00 AM EST Medication Management [address] [address] Yuri Pierre, PharmD [address] [place] [address] documented as of this encounter Goals Goal [...] documented as of this encounter Care Teams Combat Systems Operator Relationship Specialty Start Date End Date Sariah Vickers ANP 230 [place] [address] PCP - General Family Medicine 09/23/19 Yuri Pierre PharmD [address] [place] [address] Pharmacist Internal Medicine 05/05/24 Basilio Hall MD [address] [place] [address] Cardiology 05/17/24 Ron Preciado MD [address] [place] [address] Pulmonary Disease 05/17/24 documented as of this encounter
--- OUTSIDE RECORDS SUMMARY | 2024-11-01 21:46 | XMS_ITS | Encounter Summary ---
Author Organization [employer] Address 75 [facility] 7t [place] [address] Care Team Providers Care Crew Lead Name Role Phone Sariah Vickers Primary Care Provider [phone] Yuri Pierre PharmD Unavailable [phone] Basilio Hall MD Unavailable [phone] Ron Preciado MD Unavailable [phone] Encounter Details Date Type Department Care Team (Latest Contact Info) Description 06/20/2021 Abstract [facility] CONVERSIONS Dental, Provider, DDS Social [...] 11/05/2024 2:30 PM EDT Office Visit [facility] MEDICINE [address] [place] [address] Hallie Tapia MD [address] [place] [address] 11/12/2024 9:30 AM EDT Clinical Support [facility] MEDICINE [address] [place] [address] Azeb Hall RN 505 [place] [address] 01/11/2025 1:00 PM EST Office Visit [address] [address] Sariah Vickers ANP [address] [place] [address] 02/03/2025 11:00 AM EST Medication Management [address] [address] Yuri Pierre, PharmBear [address] [place] [address] documented as of this encounter Visit Diagnoses Not on filedocumented in this encounter Care Teams Crew Lead Relationship Specialty Start Date End Date Sariah Vickers ANP [address] [place] [address] PCP - General Family Medicine 09/23/19 Yuri Pierre, PharmD [address] [place] [address] Pharmacist Internal Medicine 05/05/24 Basilio Hall MD [address] [place] [address] Cardiology 05/17/24 Ron Preciado MD [address] [place] [address] Pulmonary Disease 05/17/24 documented as of this encounter
--- OUTSIDE RECORDS SUMMARY | 2024-11-01 21:46 | XMS_ITS | Encounter Summary ---
Author Organization [employer] Address 75 [facility] 7t [place] [address] Care Team Providers Care Html Web Developer Name Role Phone Sariah Vikcers Primary Care Provider [phone] Yuri Pierre PharmD Unavailable [phone] Basilio Hall MD Unavailable [phone] Ron Preciado MD Unavailable [phone] Reason for Visit * Reason Comments Med Refill Encounter Details Date Type Department Care Team (Late st Contact Info) Description 03/26/2022 Refill [facility] MED[facility]INE 230 [place] [address] Sariah Vickers ANP 230 [place] [address] Social History Tobacco Use Types Packs/Day Years [...] 11/05/2024 2:30 PM EDT Office Visit [address] [address] Hallie Tapia MD [address] [place] [address] 11/12/2024 9:30 AM EDT Clinical Support [address] [address] Azeb Hall RN 505 [place] [address] 01/11/2025 1:00 PM EST Office Visit [address] [address] Sariah Vickers ANP [address] [place] [address] 02/03/2025 11:00 AM EST Medication Management [address] [address] Yuri Pierre, Dileep [address] [place] [address] documented as of this encounter Visit Diagnoses Not on filedocumented in this encounter Care Teams Html Web Developer Relationship Specialty Start Date End Date Sariah Vickers ANP [address] [place] [address] PCP - General Family Medicine 09/23/19 Yuri Pierre, PharmD [address] [place] [address] Pharmacist Internal Medicine 05/05/24 Basilio Hall MD 596 [place] [address] Cardiology 05/17/24 Ron Preciado MD [address] [place] [address] Pulmonary Disease 05/17/24 documented as of this encounter
--- OUTSIDE RECORDS SUMMARY | 2024-11-01 21:46 | XMS_ITS | Encounter Summary ---
Author Organization [employer] Address [address] [facility] 7t [place] [address] Care Team Providers Care Interior Decorator Paperhanging Name Role Phone Sariah Vickers Primary Care Provider [phone] Yuri Pierre PharmD Unavailable [phone] Basilio Hall MD Unavailable [phone] Ron Preciado MD Unavailable [phone] Reason for Visit * Reason Comments Med Refill Encounter Details Date Type Department Care Team (Late st Contact Info) Description 01/06/2024 Refill [facility]EDS [address] [place] [address] Sariah Vickers ANP 230 [place] [address] Cervicalgia Social History Tobacco Use Types Packs/Day [...] Description 11/05/2024 2:30 PM EDT Office Visit [address] [address] Hallie Tapia MD [address] [place] [address] 11/12/2024 9:30 AM EDT Clinical Support [address] [address] Azeb Hall RN [address] [place] [address] 01/11/2025 1:00 PM EST Office Visit [address] [address] Sariah Vickers, KAYLEE [address] [place] [address] 02/03/2025 11:00 AM EST Medication Management [address] [address] Yuri Pierre, PharmD [address] [place] [address] documented as of this encounter Goals Goal Patient Goal Type Associated Problems Recent Progress Patient-Stated? Author Blood Pressure < 140/90 Blood Pressure 120/80(2024 2:59 PM EDT) No Aida Ragland, PharmD Record Your Blood Sugar As Directed General No Aida Ragland, PharmD Hemoglobin A1c < 7 Result Component 6.6( 1:54 PM EDT) No Aida Raglnad PharmD documented as of this encounter Visit Diagnoses Diagnosis Cervicalgia documented in this encounter Additional Health Concerns Assessment Noted Time PHQ-9 Depression Total Score: 12 024 2:58 PM EDT documented as of this encounter Care Teams Interior Decorator Paperhanging Relationship Specialty Start Date End Date Sariah Vickers ANP 230 [place] [address] PCP - General Family Medicine 09/23/19 Yuri Pierre PharmD [address] [place] [address] Pharmacist Internal Medicine 05/05/24 Basilio Hall MD [address] [place] [address] Cardiology 05/17/24 Ron Preciado MD [address] [place] [address] Pulmonary Disease 05/17/24 documented as of this encounter
--- OUTSIDE RECORDS SUMMARY | 2024-11-01 21:46 | XMS_ITS | Encounter Summary ---
Author Organization [facility] [employer] Address [address] [place] [address] 7t [place] [address] Care Team Providers Care Sponge Buffer Name Role Phone Sariah Vickers Primary Care Provider [phone] Yuri Pierre PharmD Unavailable [phone] Basilio Hall MD Unavailable [phone] Ron Preciado MD Unavailable [phone] Reason for Visit * Reason Onset Date Comments Nurse Triage 11/01/2022 Encounter Details Date Type Department Care Team (Late st Contact Info) Description 11/01/2022 Telephone [facility] MEDICINE 230 [place] [address] Sariah Vickers ANP 230 [place] [address] Nurse Triage Social History Tobacco Use Types [...] 11/01/2022 3:51 PM EDT Triage call with Edgar Hand Assembler [place] [id number] Pt reports blood sugars have been high [...] 2:30 PM EDT Office Visit [facility] MED[facility]INE [address] [place] [address] Hallie Tapia MD 230 [place] [address] 11/12/2024 9:30 AM EDT Clinical Support [facility] MED[facility]INE [address] [place] [address] Azeb Hall RN 505 [place] [address] 01/11/2025 1:00 PM EST Office Visit [address] [address] Sariah Vickers ANP 230 [place] [address] 02/03/2025 11:00 AM EST Medication Management [address] [address] Yuri Pierre PharmD [address] [place] [address] documented as of this encounter Goals Goal [...] on filedocumented in this encounter Care Teams Sponge Buffer Relationship Specialty Start Date End Date Sariah Vickers ANP [address] [place] [address] PCP - General Family Medicine 09/23/19 Yuri Pierre, PharmD [address] [place] [address] Pharmacist Internal Medicine 05/05/24 Basilio Hall MD [address] [place] [address] Cardiology 05/17/24 Ron Preciado MD [address] [place] [address] Pulmonary Disease 05/17/24 documented as of this encounter
--- OUTSIDE RECORDS SUMMARY | 2024-11-01 21:46 | XMS_ITS | Encounter Summary ---
Author Organization [employer] Address 75 [facility] 7t [place] [address] Care Team Providers Care Poultry Veterinarian Name Role Phone Sariah Vickers Primary Care Provider [phone] Yuri Pierre PharmD Unavailable [phone] Basilio Hall MD Unavailable [phone] Ron Preciado MD Unavailable [phone] Encounter Details Date Type Department Care Team (Late st Contact Info) Description 01/09/2022 Abstract [facility] ADULT DENTAL [address] [place] [address] Dental, Provider, DDS Social History Tobacco Use [...] Description 11/05/2024 2:30 PM EDT Office Visit [facility] MEDICINE [address] [place] [address] Hallie Tapia MD [address] [place] [address] 11/12/2024 9:30 AM EDT Clinical Support [facility] MEDICINE [address] [place] [address] Azeb Hall RN 505 [place] [address] 01/11/2025 1:00 PM EST Office Visit [facility] MEDICINE [address] [place] [address] Sariah Vickers ANP 230 [place] [address] 02/03/2025 11:00 AM EST Medication Management [facility] MEDICINE 230 [place] [address] Yuri Pierre, PharmD 230 [place], [place] [phone] documented as of this encounter Procedures Procedure [...] filedocumented in this encounter Care Teams Poultry Veterinarian Relationship Specialty Start Date End Date Sariah Vickers ANP 230 [place] [address] PCP - General Family Medicine 09/23/19 Yuri Pierre, MikeD 230 [place] [address] Pharmacist Internal Medicine 05/05/24 Basilio Hall MD 596 [place] [address] Cardiology 05/17/24 Ron Preciado MD [address] [place] [address] Pulmonary Disease 05/17/24 documented as of this encounter
--- OUTSIDE RECORDS SUMMARY | 2024-11-01 21:46 | XMS_ITS | Encounter Summary ---
Author Organization [employer] Address [address] [facility] 7t [place] [address] Care Team Providers Care Survey Research Analyst Name Role Phone Sariah Vickers Primary Care Provider [phone] Yuri Pierre PharmD Unavailable [phone] Basilio Hall MD Unavailable [phone] Ron Preciado MD Unavailable [phone] Reason for Visit * Reason Comments Med Refill Encounter Details Date Type Department Care Team (Late st Contact Info) Description 11/14/2023 Refill [facility] 230 [place] [address] Sariah Vickers ANP 230 [place] [address] Neck pain Social History Tobacco Use Types [...] 11/05/2024 2:30 PM EDT Office Visit [address] [address] Hallie Tapia MD [address] [place] [address] 11/12/2024 9:30 AM EDT Clinical Support [address] [address] Azeb Hall RN 505 [place] [address] 01/11/2025 1:00 PM EST Office Visit [address] [address] Sariah Vickers, ANP [address] [place] [address] 02/03/2025 11:00 AM EST Medication Management [address] [address] Yuri Pierre, PharmD [address] [place] [address] documented as of this encounter Goals Goal [...] documented as of this encounter Care Teams Survey Research Analyst Relationship Specialty Start Date End Date Sariah Vickers ANP [address] [place] [address] PCP - General Family Medicine 09/23/19 Yuri Pierre PharmD [address] [place] [address] Pharmacist Internal Medicine 05/05/24 Basilio Hall MD [address] [place] [address] Cardiology 05/17/24 Ron Preciado MD [address] [place] [address] Pulmonary Disease 05/17/24 documented as of this encounter
--- OUTSIDE RECORDS SUMMARY | 2024-11-01 21:46 | XMS_ITS | Encounter Summary ---
Author Organization [employer] Address 75 [facility] 7t [place] [address] Care Team Providers Care Hydro Operator Name Role Phone Sariah Vickers Primary Care Provider [phone] Yuri Pierre PharmD Unavailable [phone] Basilio Hall MD Unavailable [phone] Ron Preciado MD Unavailable [phone] Reason for Visit * Reason Comments Med Refill Encounter Details Date Type Department Care Team (Late st Contact Info) Description 03/09/2024 Refill [facility] MED & PEDS [address] [place] [address] Sariah Vickers ANP 230 [place] [address] Neck pain Social History Tobacco Use Types [...] 11/05/2024 2:30 PM EDT Office Visit [address] [address] Hallie Tapia MD [address] [place] [address] 11/12/2024 9:30 AM EDT Clinical Support [address] [address] Azeb Hall RN [address] [place] [address] 01/11/2025 1:00 PM EST Office Visit [address] [address] Sariah Vickers, KAYLEE [address] [place] [address] 02/03/2025 11:00 AM EST Medication Management [address] [address] Yuri Pierre, PharmD [address] [place] [address] documented as of this encounter Goals Goal [...] documented as of this encounter Care Teams Hydro Operator Relationship Specialty Start Date End Date Sariah Vickers ANP 230 [place] [address] PCP - General Family Medicine 09/23/19 Yuri Pierre, MikeD [address] [place] [address] Pharmacist Internal Medicine 05/05/24 Basilio Hall MD [address] [place] [address] Cardiology 05/17/24 Ron Preciado MD [address] [place] [address] Pulmonary Disease 05/17/24 documented as of this encounter
--- OUTSIDE RECORDS SUMMARY | 2024-11-01 21:46 | XMS_ITS | Encounter Summary ---
Author Organization [employer] Address 75 [facility] 7t [place] [address] Care Team Providers Care Mule Spinner Name Role Phone Sariah Vickers Primary Care Provider [phone] Yuri Pierre PharmD Unavailable [phone] Basilio Hall MD Unavailable [phone] Ron Preciado MD Unavailable [phone] Reason for Visit * Reason Comments Med Refill Encounter Details Date Type Department Care Team (Late st Contact Info) Description 06/17/2024 Refill [facility] 230 [place] [address] Sariah Vickers ANP 230 [place], [place] [phone] Neck pain Social History Tobacco Use Types [...] 11/05/2024 2:30 PM EDT Office Visit [address] [address] Hallie Tapia MD [address] [place] [address] 11/12/2024 9:30 AM EDT Clinical Support [address] [address] Azeb Hall RN [address] [place] [address] 01/11/2025 1:00 PM EST Office Visit [address] [address] Sariah Vickers, KAYLEE [address] [place] [address] 02/03/2025 11:00 AM EST Medication Management [address] [address] Yuri Pierre, PharmD [address] [place] [address] documented as of this encounter Goals Goal [...] documented as of this encounter Care Teams Mule Spinner Relationship Specialty Start Date End Date Sariah Vickers ANP 230 [place] [address] PCP - General Family Medicine 09/23/19 Yuri Pierre, MikeD [address] [place] [address] Pharmacist Internal Medicine 05/05/24 Basilio Hall MD [address] [place] [address] Cardiology 05/17/24 Ron Preciado MD [address] [place] [address] Pulmonary Disease 05/17/24 documented as of this encounter
--- OUTSIDE RECORDS SUMMARY | 2024-11-01 21:46 | XMS_ITS | Encounter Summary ---
Author Organization [employer] Address 75 [facility] 7t [place] [address] Care Team Providers Care Stave Mill Hand Name Role Phone Sariah Vickers Primary Care Provider [phone] Yuri Pierre PharmD Unavailable [phone] Basilio Hall MD Unavailable [phone] Ron Preciado MD Unavailable [phone] Reason for Visit * Reason Onset Date Comments Med Refill 01/09/2024 Encounter Details Date Type Department Care Team (Late st Contact Info) Description 01/09/2024 Telephone [facility] MEDICINE 230 [place] [address] Sariah Vickers ANP 230 [place], [place] [phone] Med Refill Social History Tobacco Use Types [...] 11/05/2024 2:30 PM EDT Office Visit [address] [address] Hallie Tapia MD [address] [place] [address] 11/12/2024 9:30 AM EDT Clinical Support [address] [address] Azeb Hall RN 505 [place] [address] 01/11/2025 1:00 PM EST Office Visit [address] [address] Sariah Vickers, KAYLEE [address] [place] [address] 02/03/2025 11:00 AM EST Medication Management [address] [address] Yuri Pierre, PharmD [address] [place] [address] documented as of this encounter Goals Goal [...] documented as of this encounter Care Teams Stave Mill Hand Relationship Specialty Start Date End Date Sariah Vickers ANP 230 [place] [address] PCP - General Family Medicine 09/23/19 Yuri Pierre, MikeD [address] [place] [address] Pharmacist Internal Medicine 05/05/24 Basilio Hall MD 596 [place] [address] Cardiology 05/17/24 Ron Preciado MD [address] [place] [address] Pulmonary Disease 05/17/24 documented as of this encounter
--- OUTSIDE RECORDS SUMMARY | 2024-11-01 21:46 | XMS_ITS | Encounter Summary ---
Author Organization [employer] Address 75 [facility] 7t [place] [address] Care Team Providers Care Security Flex Officer Name Role Phone Sariah Vickers Primary Care Provider [phone] Yuri Pierre PharmD Unavailable [phone] Basilio Hall MD Unavailable [phone] Ron Preciado MD Unavailable [phone] Reason for Visit * Reason Comments Med Refill Encounter Details Date Type Department Care Team (Late st Contact Info) Description 03/03/2022 Refill [facility] MEDICINE 230 [place] [address] Sariah Vickers ANP 230 [place] [address] Social History Tobacco Use Types Packs/Day Years [...] 11/05/2024 2:30 PM EDT Office Visit [address] [address] Hallie Tapia MD [address] [place] [address] 11/12/2024 9:30 AM EDT Clinical Support [address] [address] Azeb Hall RN 505 [place] [address] 01/11/2025 1:00 PM EST Office Visit [address] [address] Sariah Vickers ANP [address] [place] [address] 02/03/2025 11:00 AM EST Medication Management [address] [address] Yuri Pierre, Dileep [address] [place] [address] documented as of this encounter Visit Diagnoses Not on filedocumented in this encounter Care Teams Security Flex Officer Relationship Specialty Start Date End Date Sariah Vickers ANP [address] [place] [address] PCP - General Family Medicine 09/23/19 Yuri Pierre, PharmD [address] [place] [address] Pharmacist Internal Medicine 05/05/24 Basilio Hall MD 596 [place] [address] Cardiology 05/17/24 Ron Preciado MD [address] [place] [address] Pulmonary Disease 05/17/24 documented as of this encounter
--- OUTSIDE RECORDS SUMMARY | 2024-11-01 21:46 | XMS_ITS | Encounter Summary ---
Author Organization [employer] Address 75 [facility] 7t [place] [address] Care Team Providers Care Medical Voucher Clerk Name Role Phone Sariah Vickers Primary Care Provider [phone] Yuri Pierre PharmD Unavailable [phone] Basilio Hall MD Unavailable [phone] Ron Preciado MD Unavailable [phone] Encounter Details Date Type Department Care Team (Late st Contact Info) Description 02/05/2022 Abstract [facility] MEDICINE 230 [place] [address] Sariah Vickers ANP 230 [place] [address] Social History Tobacco Use Types Packs/Day Years [...] 11/05/2024 2:30 PM EDT Office Visit [address] [address] Hallie Tapia MD [address] [place] [address] 11/12/2024 9:30 AM EDT Clinical Support [address] [address] Azeb Hall RN 505 [place] [address] 01/11/2025 1:00 PM EST Office Visit [address] [address] Sariah Vickers ANP [address] [place] [address] 02/03/2025 11:00 AM EST Medication Management [address] [address] Yuri Pierre, MikeD [address] [place] [address] documented as of this encounter Visit Diagnoses Not on filedocumented in this encounter Care Teams Medical Voucher Clerk Relationship Specialty Start Date End Date Sariah Vickers ANP [address] [place] [address] PCP - General Family Medicine 09/23/19 Yuri Pierre, PharmD 230 [place] [address] Pharmacist Internal Medicine 05/05/24 Basilio Hall MD 596 [place] [address] Cardiology 05/17/24 Ron Preciado MD [address] [place] [address] Pulmonary Disease 05/17/24 documented as of this encounter
--- OUTSIDE RECORDS SUMMARY | 2024-11-01 21:47 | XMS_ITS | Encounter Summary ---
Author Organization [employer] Address 75 [facility] 7t [place] [address] Care Team Providers Care Engineer Of System Development Name Role Phone Sariah Vickers KAYLEE Primary Care Provider [phone] Yuri Pierre PharmD Unavailable [phone] Basilio Hall MD Unavailable [phone] Ron Preciado MD Unavailable [phone] Reason for Visit * Reason Comments Med Refill Encounter Details Date Type Department Care Team (Late st Contact Info) Description 10/04/2024 Refill [facility] MED & PEDS [address] [place] [address] Zakia Uriostegui, UNDERWEAR CUTTER 230 [place] [address] Type 2 diabetes mellitus with hyperglycemia (CMS/HCC) [...] 11/05/2024 2:30 PM EDT Office Visit [address] [address] Hallie Tapia MD [address] [place] [address] 11/12/2024 9:30 AM EDT Clinical Support [address] [address] Azeb Hall, MARTIN 505 [place] [address] 01/11/2025 1:00 PM EST Office Visit [address] [address] Sariah Vickers ANP [address] [place] [address] 02/03/2025 11:00 AM EST Medication Management [address] [address] Yuri Pierre, PharmD 230 [place] [address] documented as of this encounter Goals Goal [...] documented as of this encounter Care Teams Engineer Of System Development Relationship Specialty Start Date End Date Sariah Vickers ANP 230 [place] [address] PCP - General Family Medicine 09/23/19 Yuri Pierre, PharmD [address] [place] [address] Pharmacist Internal Medicine 05/05/24 Basilio Hall MD 596 [place] [address] Cardiology 05/17/24 Ron Preciado MD [address] [place] [address] Pulmonary Disease 05/17/24 documented as of this encounter
--- OUTSIDE RECORDS SUMMARY | 2024-11-01 21:47 | XMS_ITS | Encounter Summary ---
Author Organization [employer] Address 75 [facility] 7t [place] [address] Care Team Providers Care Resource Technician Name Role Phone Sariah Vickers Primary Care Provider [phone] Yuri Pierre PharmD Unavailable [phone] Basilio Hall MD Unavailable [phone] Ron Preciado MD Unavailable [phone] Reason for Visit * Reason Comments Med Refill Encounter Details Date Type Department Care Team (Late st Contact Info) Description 05/09/2023 Refill [facility] MEDICINE 230 [place] [address] Sariah Vickers ANP 230 [place] [address] High cholesterol Social History Tobacco Use Types [...] 11/05/2024 2:30 PM EDT Office Visit [address] [address] Hallie Tapia MD [address] [place] [address] 11/12/2024 9:30 AM EDT Clinical Support [address] [address] Azeb Hall, RN 505 [place] [address] 01/11/2025 1:00 PM EST Office Visit [address] [address] Sariah Vickers ANP [address] [place] [address] 02/03/2025 11:00 AM EST Medication Management [address] [address] Yuri Pierre, PharmD [address] [place] [address] documented as of this encounter Goals Goal [...] hypercholesterolemia documented in this encounter Care Teams Resource Technician Relationship Specialty Start Date End Date Sariah Vickers ANP 230 [place] [address] PCP - General Family Medicine 09/23/19 Yuri Pierre, MikeD 230 [place] [address] Pharmacist Internal Medicine 05/05/24 Basilio Hall MD 596 [place] [address] Cardiology 05/17/24 Ron Preciado MD [address] [place] [address] Pulmonary Disease 05/17/24 documented as of this encounter
--- OUTSIDE RECORDS SUMMARY | 2024-11-01 21:47 | XMS_ITS | Encounter Summary ---
Author Organization [employer] Address 75 [facility] 7t [place] [address] Care Team Providers Care Channel Lip Stiffener Insoles Name Role Phone Sariah Vickers Primary Care Provider [phone] Yuri Pierre PharmD Unavailable [phone] Basilio Hall MD Unavailable [phone] Ron Preciado MD Unavailable [phone] Reason for Visit * Reason Comments Med Refill Encounter Details Date Type Department Care Team (Late st Contact Info) Description 03/07/2023 Refill [facility] MEDICINE 230 [place] [address] Sariah Vickers ANP 230 [place] [address] Vertigo Social History Tobacco Use Types Packs/Day [...] 11/05/2024 2:30 PM EDT Office Visit [address] [address] Hallie Tapia MD [address] [place] [address] 11/12/2024 9:30 AM EDT Clinical Support [address] [address] Azeb Hall, RN 505 [place] [address] 01/11/2025 1:00 PM EST Office Visit [address] [address] Sariah Vickers ANP [address] [place] [address] 02/03/2025 11:00 AM EST Medication Management [address] [address] Yuri Pierre, PharmD [address] [place] [address] documented as of this encounter Goals Goal [...] giddiness documented in this encounter Care Teams Channel Lip Stiffener Insoles Relationship Specialty Start Date End Date Sariah Vickers ANP 230 [place] [address] PCP - General Family Medicine 09/23/19 Yuri Pierre, MikeD [address] [place] [address] Pharmacist Internal Medicine 05/05/24 Basilio Hall MD [address] [place] [address] Cardiology 05/17/24 Ron Preciado MD [address] [place] [address] Pulmonary Disease 05/17/24 documented as of this encounter
--- OUTSIDE RECORDS SUMMARY | 2024-11-01 21:47 | XMS_ITS | Encounter Summary ---
Author Organization [employer] Address 75 [facility] 7t [place] [address] Care Team Providers Care Athletic Team Physician Name Role Phone Anthony Ruiz Primary Care Provider [phone] Yuri Pierre PharmD Unavailable [phone] Basilio Hall MD Unavailable [phone] Ron Preciado MD Unavailable [phone] Encounter Details Date Type Department Care Team (Late st Contact Info) Description 09/28/2024 Orders Only [facility] MEDICINE 230 [place] [address] Anthony Ruiz ANP 230 [place] [address] Social History Tobacco Use Types Packs/Day Years [...] 11/05/2024 2:30 PM EDT Office Visit [address] [address] Hallie Tapia MD [address] [place] [address] 11/12/2024 9:30 AM EDT Clinical Support [address] [address] Azeb Hall RN 505 [place] [address] 01/11/2025 1:00 PM EST Office Visit [address] [address] Anthony Ruiz ANP [address] [place] [address] 02/03/2025 11:00 AM EST Medication Management [address] [address] Yuri Pierre, PharmD [address] [place] [address] documented as of this encounter Goals Goal Patient Goal Type Associated Problems Recent Progress Patient-Stated? Author Blood Pressure < 140/90 Blood Pressure 120/80(2024 2:59 PM EDT) No Phanis-Aida Medina, PharmD Record [...] PM EDT Narrative 10/09/2024 1:20 PM EDT [address] [address] [address] Scan Report Signed Patient: Nuvia Fay MR #: [id number] : 1960 Acct:[id number] Age/Sex: 64 / F ADM Date: 10/08/24 Loc: HO.CT Attending Dr: Ron Preciado MD Ordering Physician: Ron Preciado MD Date of Service: 10/08/24 Procedure(s): CT lung screening Accession Number(s): [id number] cc: Ron Preciado MD; ANTHONY RUIZ NP Report Number: [id number]: Total DLP = 64.00 mGy-cm CLINICAL HISTORY: [...] 10/09/24 1319 DD/ 1318 TD/TT: 10/09/24 1318 Business Job Titles: Procedure Note Donotuseinterpreter, Image - 10/09/[address] [address] [address] Scan Report Signed Patient: Nuvia Fay EMR #: [id number] : 1Acct:[id number] Age/Sex: 64 / FADM Date: 10/08/24 Loc: HO.CT Attending Dr: Ron Preciado MD Ordering Physician: Ron Preciado MD Date of Service: 10/08/24 Procedure(s): CT lung screening Accession Number(s): [id number] cc: Ron Preciado MD; ANTHONY RUIZ NP Report Number: [id number]: Total DLP = 64.00 mGy-cm CLINICAL HISTORY: [...] 10/09/24 1319 DD/ 1318 TD/TT: 10/09/24 1318 Business Job Titles: [facility] External Provider IMG CT PROCEDURES Edited Result - Final documented in this encounter Visit Diagnoses Not on filedocumented in this encounter Additional Health Concerns Assessment Noted Time PHQ-9 Depression Total Score: 12 024 2:58 PM EDT documented as of this encounter Care Teams Athletic Team Physician Relationship Specialty Start Date End Date Anthony Ruiz ANP 230 [place] [address] PCP - General Family Medicine 09/23/19 Yuri Pierre, MikeD 230 [place] [address] Pharmacist Internal Medicine 05/05/24 Basilio Hall MD 596 [place] [address] Cardiology 05/17/24 Ron Preciado MD [address] [place] [address] Pulmonary Disease 05/17/24 documented as of this encounter
--- OUTSIDE RECORDS SUMMARY | 2024-11-01 21:47 | XMS_ITS | Encounter Summary ---
Author Organization [employer] Address 75 [facility] 7t [place] [address] Care Team Providers Care Mechanical Development Engineer Name Role Phone Sariah Vickers Primary Care Provider Yuri Pierre PharmD Unavailable [phone] Basilio Hall MD Unavailable [phone] Ron Preciado MD Unavailable [phone] Reason for Visit * Reason Comments Med Refill Encounter Details Date Type Department Care Team (Late st Contact Info) Description 05/21/2023 Refill [facility] 230 [place] [address] Sariah Vickers ANP 230 [place] [address] Neck pain Social History Tobacco Use Types [...] PM EDT Office Visit [address] [address] Hallie Tapia MD [address] [place] [address] 11/12/2024 9:30 AM EDT Clinical Support [address] [address] Azeb Hall RN 505 [place] [address] 01/11/2025 1:00 PM EST Office Visit [address] [address] Sariah Vickers ANP [address] [place] [address] 02/03/2025 11:00 AM EST Medication Management [place] [address] [place] [address] Yuri Pierre, PharmD 230 [place] [address] documented as of this encounter Goals Goal [...] Cervicalgia documented in this encounter Care Teams Mechanical Development Engineer Relationship Specialty Start Date End Date Sariah Vickers ANP 230 [place] [address] PCP - General Family Medicine 09/23/19 Yuri Pierre, PharmD 230 [place] [address] Pharmacist Internal Medicine 05/05/24 Basilio Hall MD 5[address] [place] [address] Cardiology 05/17/24 Ron Preciado MD [address] [place] [address] Pulmonary Disease 05/17/24 documented as of this encounter
--- OUTSIDE RECORDS SUMMARY | 2024-11-01 21:47 | XMS_ITS | Encounter Summary ---
Author Organization [employer] Address 75 [facility] 7t [place] [address] Care Team Providers Care Painter Structural Steel Name Role Phone Sariah Vickers Primary Care Provider [phone] Yuri Pierre PharmD Unavailable [phone] Basilio Hall MD Unavailable [phone] Ron Preciado MD Unavailable [phone] Encounter Details Date Type Department Care Team (Late st Contact Info) Description 10/26/2024 Results Follow-Up [facility] MEDICINE 230 [place] [address] Sariah Vickers ANP 230 [place] [address] Thyroid Peroxidase Antibodies, Cardiolipin Antibodies (IgA,IgG,IgM) Social [...] 2:30 PM EDT Office Visit [facility] [address] [place] [address] Hallie Tapia MD [address] [place] [address] 11/12/2024 9:30 AM EDT Clinical Support [address] [address] Azeb Hall RN 505 [place] [address] 01/11/2025 1:00 PM EST Office Visit [address] [address] Sariah Vickers ANP 230 [place] [address] 02/03/2025 11:00 AM EST Medication Management [facility] [address] [place] [address] Yuri Pierre, PharmD 230 [place] [address] documented as of this encounter Goals Goal [...] documented as of this encounter Care Teams Painter Structural Steel Relationship Specialty Start Date End Date Sariah Vickers ANP [address] [place] [address] PCP - General Family Medicine 09/23/19 Yuri Pierre, PharmD [address] [place] [address] Pharmacist Internal Medicine 05/05/24 Basilio Hall MD 596 [place] [address] Cardiology 05/17/24 Ron Preciado MD [address] [place] [address] Pulmonary Disease 05/17/24 documented as of this encounter
--- OUTSIDE RECORDS SUMMARY | 2024-11-01 21:47 | XMS_ITS | Encounter Summary ---
Author Organization [employer] Address 75 [facility] 7t [place] [address] Care Team Providers Care Assisted Living Manager Name Role Phone Sariah Vickers Primary Care Provider [phone] Yuri Pierre PharmD Unavailable [phone] Basilio Hall MD Unavailable [phone] Ron Preciado MD Unavailable [phone] Reason for Visit * Reason Comments Med Refill Encounter Details Date Type Department Care Team (Late st Contact Info) Description 06/30/2023 Refill [facility] MEDICINE 230 [place] [address] Sariah Vickers ANP 230 [place] [address] Neck pain Social History Tobacco Use Types [...] 11/05/2024 2:30 PM EDT Office Visit [address] [address] Hallie Tapia MD [address] [place] [address] 11/12/2024 9:30 AM EDT Clinical Support [address] [address] Azeb Hall RN 505 [place] [address] 01/11/2025 1:00 PM EST Office Visit [address] [address] Sariah Vickers, ANP [address] [place] [address] 02/03/2025 11:00 AM EST Medication Management [address] [address] Yuri Pierre, PharmD [address] [place] [address] documented as of this encounter Goals Goal [...] documented as of this encounter Care Teams Assisted Living Manager Relationship Specialty Start Date End Date Sariah Vickers ANP 230 [place] [address] PCP - General Family Medicine 09/23/19 Yuri Pierre PharmD [address] [place] [address] Pharmacist Internal Medicine 05/05/24 Basilio Hall MD [address] [place] [address] Cardiology 05/17/24 Ron Preciado MD [address] [place] [address] Pulmonary Disease 05/17/24 documented as of this encounter
--- OUTSIDE RECORDS SUMMARY | 2024-11-01 21:47 | XMS_ITS | Encounter Summary ---
Author Organization [employer] Address 75 [facility] 7t [place] [address] Care Team Providers Care Bookkeepers Supervisor Name Role Phone Sariah Vickers Primary Care Provider [phone] Yuri Pierre PharmD Unavailable [phone] Basilio Hall MD Unavailable [phone] Ron Preciado MD Unavailable [phone] Reason for Visit * Reason Onset Date Comments Nurse Triage 12/24/2022 Encounter Details Date Type Department Care Team (Late st Contact Info) Description 12/24/2022 Telephone [facility] MEDICINE 230 [place] [address] Sariah Vickers ANP 230 [place] [address] Nurse Triage Social History Tobacco Use Types [...] - 12/24/2022 1:11 PM EST Called pt.via Saiguo certified court/medical interpreter [id number] Benjamin. Pt. States that she wants to [...] regimen and possible referral to a new Saloonkeeper due to pt. Not having jeremie in [...] accepted this outcome Please contact pt at [phone] documented in this encounter Plan of Treatment Upcoming Encounters Date Type Department Care Team (Late st Contact Info) Description 11/05/2024 2:30 PM EDT Office Visit [address] [phone] Hallie Tapia MD [address] [place] [address] 11/12/2024 9:30 AM EDT Clinical Support [address] [address] Azeb Hall, MARTIN 505 [place] [address] 01/11/2025 1:00 PM EST Office Visit [address] [address] Sariah Vickers ANP [address] [place] [address] 02/03/2025 11:00 AM EST Medication Management [address] [phone] Yuri Pierre PharmD [address] [place] [address] documented as of this encounter Goals Goal Patient Goal Type Associated Problems Recent Progress Patient-Stated? Author Blood Pressure < 140/90 Blood Pressure 120/80(2024 2:59 PM EDT) No Aida Ragland, PharmD Record Your Blood Sugar As Directed General No Aida Ragland, PharmD Hemoglobin A1c < 7 Result Component 6.6( 1:54 PM EDT) No PhanisAida Cheng, PharmD documented as of this encounter Visit Diagnoses Not on filedocumented in this encounter Care Teams Bookkeepers Supervisor Relationship Specialty Start Date End Date Sariah Vickers ANP [address] [place] [address] PCP - General Family Medicine 09/23/19 Yuri Pierre, Dileep [address] [place] [address] Pharmacist Internal Medicine 05/05/24 Basilio Hall MD 596 [place] [address] Cardiology 05/17/24 Ron Preciado MD [address] [place] [address] Pulmonary Disease 05/17/24 documented as of this encounter
--- OUTSIDE RECORDS SUMMARY | 2024-11-01 21:47 | XMS_ITS | Encounter Summary ---
Author Organization [employer] Address 75 [facility] 7t [place] [address] Care Team Providers Care Barrel Plater Name Role Phone Sariah Vickers Primary Care Provider [phone] Yuri Pierre PharmD Unavailable [phone] Basilio Hall MD Unavailable [phone] Ron Preciado MD Unavailable [phone] Reason for Visit * Reason Comments Med Refill Encounter Details Date Type Department Care Team (Late st Contact Info) Description 12/27/2022 Refill [facility] MEDICINE 230 [place] [address] Sariah Vickers ANP 230 [place] [address] Neck pain Social History Tobacco Use Types [...] Description 11/05/2024 2:30 PM EDT Office Visit [address] [address] Hallie Tapia MD [address] [place] [address] 11/12/2024 9:30 AM EDT Clinical Support [address] [address] Azeb Hall, RN 505 [place] [address] 01/11/2025 1:00 PM EST Office Visit [address] [address] Sariah Vickers ANP [address] [place] [address] 02/03/2025 11:00 AM EST Medication Management [address] [address] Yuri Pierre, PharmD [address] [place] [address] documented as of this encounter Goals Goal [...] Cervicalgia documented in this encounter Care Teams Barrel Plater Relationship Specialty Start Date End Date Sariah Vickers ANP 230 [place] [address] PCP - General Family Medicine 09/23/19 Yuri Pierre, MikeD 230 [place] [address] Pharmacist Internal Medicine 05/05/24 Basilio Hall MD 596 [place] [address] Cardiology 05/17/24 Ron Preciado MD [address] [place] [address] Pulmonary Disease 05/17/24 documented as of this encounter
--- OUTSIDE RECORDS SUMMARY | 2024-11-01 21:47 | XMS_ITS | Encounter Summary ---
Author Organization [employer] Address 75 [facility] 7t [place] [address] Care Team Providers Care Alligator Trapper Name Role Phone Sariah Vickers Primary Care Provider Yuri Pierre PharmD Unavailable [phone] Basilio Hall MD Unavailable [phone] Ron Preciado MD Unavailable [phone] Reason for Visit * Reason Onset Date Comments Referral 05/17/2022 Encounter Details Date Type Department Care Team (Late st Contact Info) Description 05/17/2022 Telephone [facility] MEDICINE 230 [place] [address] Sariah Vickers ANP 230 [place], [place] [phone] Referral Social History Tobacco Use Types Packs/Day [...] guide to vertigo. Please contact pt at [phone] documented in this encounter Plan of Treatment Upcoming Encounters Date Type Department Care Team (Late st Contact Info) Description 11/05/2024 2:30 PM EDT Office Visit [address] [address] Hallie Tapia MD [address] [place] [address] 11/12/2024 9:30 AM EDT Clinical Support [address] [address] Azeb Hall RN 505 [place] [address] 01/11/2025 1:00 PM EST Office Visit [address] [address] Sariah Vickers ANP [address] [place] [address] 02/03/2025 11:00 AM EST Medication Management [address] [address] Yuri Pierre, Dileep [address] [place] [address] documented as of this encounter Visit Diagnoses Not on filedocumented in this encounter Care Teams Alligator Trapper Relationship Specialty Start Date End Date Sariah Vickers ANP [address] [place] [address] PCP - General Family Medicine 09/23/19 Yuri Pierre, PharmD 230 [place] [address] Pharmacist Internal Medicine 05/05/24 Basilio Hall MD 596 [place] [address] Cardiology 05/17/24 Ron Preciado MD [address] [place] [address] Pulmonary Disease 05/17/24 documented as of this encounter
--- OUTSIDE RECORDS SUMMARY | 2024-11-01 21:47 | XMS_ITS | Encounter Summary ---
Author Organization [employer] Address 75 [facility] 7t [place] [address] Care Team Providers Care Internet Sales Manager Name Role Phone Sariah Vickers KAYLEE Primary Care Provider Yuri Pierre PharmD Unavailable [phone] Basilio Hall MD Unavailable [phone] Ron Preciado MD Unavailable [phone] Reason for Visit * Reason Comments Med Refill Encounter Details Date Type Department Care Team (Late st Contact Info) Description 03/04/2023 Refill [facility] 230 [place] [address] Brittney Nava MD 230 [place] [address] Social History Tobacco Use Types Packs/Day Years [...] Description 11/05/2024 2:30 PM EDT Office Visit [address] [address] Hallie Tapia MD [address] [place] [address] 11/12/2024 9:30 AM EDT Clinical Support [address] [address] Azeb Hall, RN 505 [place] [address] 01/11/2025 1:00 PM EST Office Visit [address] [address] Sariah Vickers, KAYLEE [address] [place] [address] 02/03/2025 11:00 AM EST Medication Management [address] [address] Yuri Pierre, PharmD [address] [place] [address] documented as of this encounter Goals Goal [...] on filedocumented in this encounter Care Teams Internet Sales Manager Relationship Specialty Start Date End Date Sariah Vickers ANP 230 [place] [address] PCP - General Family Medicine 09/23/19 Yuri Pierre, PharmD [address] [place] [address] Pharmacist Internal Medicine 05/05/24 Basilio Hall MD 596 [place] [address] Cardiology 05/17/24 Ron Preciado MD [address] [place] [address] Pulmonary Disease 05/17/24 documented as of this encounter
--- OUTSIDE RECORDS SUMMARY | 2024-11-01 21:47 | XMS_ITS | Encounter Summary ---
Author Organization [employer] Address 75 [facility] 7t [place] [address] Care Team Providers Care Midwife Name Role Phone Sariah Vickers Primary Care Provider [phone] Yuri Pierre PharmD Unavailable [phone] Basilio Hall MD Unavailable [phone] Ron Preciado MD Unavailable [phone] Reason for Visit * Reason Comments Med Refill Encounter Details Date Type Department Care Team (Late st Contact Info) Description 12/19/2022 Refill [facility] MEDICINE 230 [place] [address] Sariah Vickers ANP 230 [place] [address] Vertigo Social History Tobacco Use Types Packs/Day [...] 11/05/2024 2:30 PM EDT Office Visit [address] [address] Hallie Tapia MD [address] [place] [address] 11/12/2024 9:30 AM EDT Clinical Support [address] [address] Azeb Hall, RN 505 [place] [address] 01/11/2025 1:00 PM EST Office Visit [address] [address] Sariah Vickers ANP [address] [place] [address] 02/03/2025 11:00 AM EST Medication Management [address] [address] Yuri Pierre, PharmD [address] [place] [address] documented as of this encounter Goals Goal [...] giddiness documented in this encounter Care Teams Midwife Relationship Specialty Start Date End Date Sariah Vickers ANP 230 [place] [address] PCP - General Family Medicine 09/23/19 Yuri Pierre, MikeD [address] [place] [address] Pharmacist Internal Medicine 05/05/24 Basilio Hall MD [address] [place] [address] Cardiology 05/17/24 Ron Preciado MD [address] [place] [address] Pulmonary Disease 05/17/24 documented as of this encounter
--- OUTSIDE RECORDS SUMMARY | 2024-11-01 21:47 | XMS_ITS | Encounter Summary ---
Author Organization [employer] Address 75 [facility] 7t [place] [address] Care Team Providers Care Electronics Engineering Manager Name Role Phone Sariah Vickers Primary Care Provider [phone] Yuri Pierre PharmD Unavailable [phone] Basilio Hall MD Unavailable [phone] Ron Preciado MD Unavailable [phone] Reason for Visit * Reason Onset Date Comments Appointment Request 09/03/2024 Encounter Details Date Type Department Care Team (Late st Contact Info) Description 09/03/2024 Telephone [facility] MEDICINE 230 [place] [address] Sariah Vickers ANP 230 [place], [place] [phone] Appointment Request Social History Tobacco Use Types [...] when making the apt. Contact pt at [phone] documented in this encounter Plan of Treatment Upcoming Encounters Date Type Department Care Team ([facility] st Contact Info) Description 11/05/2024 2:30 PM EDT Office Visit [facility] MEDICINE [address] [place] [address] Hallie Tapia MD [address] [place] [address] 11/12/2024 9:30 AM EDT Clinical Support [facility] MEDICINE [address] [place] [address] Azeb Hall RN 505 [place] [address] 01/11/2025 1:00 PM EST Office Visit [address] [address] Sariah Vickers ANP [address] [place] [address] 02/03/2025 11:00 AM EST Medication Management [address] [address] Yuir Pierre, PharmBear [address] [place] [address] documented as of this encounter Goals Goal [...] documented as of this encounter Care Teams Electronics Engineering Manager Relationship Specialty Start Date End Date Sariah Vickers ANP [address] [place] [address] PCP - General Family Medicine 09/23/19 Yuri Pierre, PharmD [address] [place] [address] Pharmacist Internal Medicine 05/05/24 Basilio Hall MD [address] [place] [address] Cardiology 05/17/24 Ron Preciado MD [address] [place] [address] Pulmonary Disease 05/17/24 documented as of this encounter
--- OUTSIDE RECORDS SUMMARY | 2024-11-01 21:47 | XMS_ITS | Encounter Summary ---
Author Organization [employer] Address 75 [facility] 7t [place] [address] Care Team Providers Care Data Migration Consultant Name Role Phone Sariah Vickers Primary Care Provider [phone] Yuri Pierre PharmD Unavailable [phone] Basilio Hall MD Unavailable [phone] Ron Preciado MD Unavailable [phone] Reason for Visit * Reason Comments Med Refill Encounter Details Date Type Department Care Team (Late st Contact Info) Description 07/10/2022 Refill [facility] MEDICINE 230 [place] [address] Sariah Vickers ANP 230 [place] [address] Vertigo Social History Tobacco Use Types Packs/Day [...] 11/05/2024 2:30 PM EDT Office Visit [address] [address] Hallie Tapia MD [address] [place] [address] 11/12/2024 9:30 AM EDT Clinical Support [address] [address] Azeb Hall RN 505 [place] [address] 01/11/2025 1:00 PM EST Office Visit [address] [address] Sariah Vickers ANP [address] [place] [address] 02/03/2025 11:00 AM EST Medication Management [address] [address] Yuri Pierre, Dileep [address] [place] [address] documented as of this encounter Visit Diagnoses Diagnosis Vertigo Dizziness and giddiness documented in this encounter Care Teams Data Migration Consultant Relationship Specialty Start Date End Date Sariah Vickers ANP [address] [place] [address] PCP - General Family Medicine 09/23/19 Yuri Pierre, PharmD [address] [place] [address] Pharmacist Internal Medicine 05/05/24 Basilio Hall MD [address] [place] [address] Cardiology 05/17/24 Ron Preciado MD [address] [place], [place] [address] Pulmonary Disease 05/17/24 documented as of this encounter
--- OUTSIDE RECORDS SUMMARY | 2024-11-01 21:47 | XMS_ITS | Encounter Summary ---
Author Organization [employer] Address 75 [facility] 7t [place] [address] Care Team Providers Care Roaster Operator Name Role Phone Sariah Vickers Primary Care Provider [phone] Yuri Pierre PharmD Unavailable [phone] Basilio Hall MD Unavailable [phone] Ron Preciado MD Unavailable [phone] Reason for Visit * Reason Onset Date Comments Med Refill Durable Medical Equipment 07/15/2023 Foam M attress/Raised Toilet Seat Encounter Details Date Type Department Care Team (Late st Contact Info) Description 07/15/2023 Refill [facility] MEDICINE 230 [place], [place] [phone] Sariah Vickers ANP 230 [place] [address] Neck pain Social History Tobacco Use Types [...] see request sent via email by [facility] Donor Recruiter Arlin Baker. Please Advise. Good morning, Our [...] 11/05/2024 2:30 PM EDT Office Visit [facility] MEDICINE [address] [place] [address] Hallie Tapia MD [address] [place] [address] 11/12/2024 9:30 AM EDT Clinical Support [address] [phone] Azeb Hall, MARTIN 505 [place] [address] 01/11/2025 1:00 PM EST Office Visit [address] [phone] Sariah Vickers ANP [address] [place] [address] 02/03/2025 11:00 AM EST Medication Management [address] [phone] Yuri Pierre, Dileep [address] [place] [address] documented as of this encounter Goals Goal [...] documented as of this encounter Care Teams Roaster Operator Relationship Specialty Start Date End Date Sariah Vickers ANP [address] [place] [address] PCP - General Family Medicine 09/23/19 Yuri Pierre, MikeD [address] [place] [address] Pharmacist Internal Medicine 05/05/24 Basilio Hall MD 596 [place] [address] Cardiology 05/17/24 Ron Preciado MD [address] [place] [address] Pulmonary Disease 05/17/24 documented as of this encounter
--- OUTSIDE RECORDS SUMMARY | 2024-11-01 21:47 | XMS_ITS | Encounter Summary ---
Author Organization [employer] Address 75 [facility] 7t [place] [address] Care Team Providers Care Assistant Account Executive Name Role Phone Sariah Vickers Primary Care Provider [phone] Yuri Pierre PharmD Unavailable [phone] Basilio Hall MD Unavailable [phone] Ron Preciado MD Unavailable [phone] Reason for Visit * Reason Comments Med Refill Encounter Details Date Type Department Care Team (Late st Contact Info) Description 07/17/2022 Refill [facility] MEDICINE 230 [place] [address] Sariah Vickers ANP 230 [place] [address] Neck pain Social History Tobacco Use Types [...] 11/05/2024 2:30 PM EDT Office Visit [address] [address] Hallie Tapia MD [address] [place] [address] 11/12/2024 9:30 AM EDT Clinical Support [address] [address] Azeb Hall RN 505 [place] [address] 01/11/2025 1:00 PM EST Office Visit [address] [address] Sariah Vickers ANP [address] [place] [address] 02/03/2025 11:00 AM EST Medication Management [address] [address] Yuri Pierre, Dileep [address] [place] [address] documented as of this encounter Visit Diagnoses Diagnosis Neck pain Cervicalgia documented in this encounter Care Teams Assistant Account Executive Relationship Specialty Start Date End Date Sariah Vickers ANP [address] [place] [address] PCP - General Family Medicine 09/23/19 Yuri Pierre, PharmD [address] [place] [address] Pharmacist Internal Medicine 05/05/24 Basilio Hall MD [address] [place] [address] Cardiology 05/17/24 Ron Preciado MD [address] [place], [place] [address] Pulmonary Disease 05/17/24 documented as of this encounter
--- OUTSIDE RECORDS SUMMARY | 2024-11-01 21:47 | XMS_ITS | Encounter Summary ---
Author Organization [employer] Address [address] [facility] 7t [place] [address] Care Team Providers Care Poultry Hatchery Laborer Name Role Phone Sariah Vickers Primary Care Provider [phone] Yuri Pierre PharmD Unavailable [phone] Basilio Hall MD Unavailable [phone] Ron Preciado MD Unavailable [phone] Reason for Visit * Reason Onset Date Comments Referral 08/02/2024 Encounter Details Date Type Department Care Team (Late st Contact Info) Description 08/02/2024 Telephone [facility] MEDICINE [address] [place], [place] [phone] Sariah Vickers ANP 230 [place], [place] [phone] Referral Social History Tobacco Use Types Packs/Day [...] for vertigo therapy. Please contact pt at [phone]. (Georgian Speaker) documented in this encounter Plan of Treatment Upcoming Encounters Date Type Department Care Team (Late st Contact Info) Description 11/05/2024 2:30 PM EDT Office Visit [facility] MEDICINE [address] [place] [address] Hallie Tapia MD 230 [place] [address] 11/12/2024 9:30 AM EDT Clinical Support [facility] MEDICINE [address] [place] [address] Azeb Hall RN 505 [place] [address] 01/11/2025 1:00 PM EST Office Visit [address] [phone] Sariah Vickers ANP [address] [place] [address] 02/03/2025 11:00 AM EST Medication Management [address] [phone] Yuri Pierre, Dileep [address] [place], [place] documented as of this encounter Goals [...] documented as of this encounter Care Teams Poultry Hatchery Laborer Relationship Specialty Start Date End Date Sariah Vickers ANP [address] [place] [address] PCP - General Family Medicine 09/23/19 Yuri Pierre, PharmD [address] [place] [address] Pharmacist Internal Medicine 05/05/24 Basilio Hall MD [address] [place], [place] Cardiology 05/17/24 Ron Preciado MD [address] [place] [address] Pulmonary Disease 05/17/24 documented as of this encounter
--- OUTSIDE RECORDS SUMMARY | 2024-11-01 21:47 | XMS_ITS | Encounter Summary ---
Author Organization [employer] Address [address] [facility] 7t [place] [address] Care Team Providers Care Machine Brush Maker Name Role Phone Sariah Vickers Primary Care Provider [phone] Yuri Pierre PharmD Unavailable [phone] Basilio Hall MD Unavailable [phone] Ron Preciado MD Unavailable [phone] Reason for Visit * Reason Comments Med Refill Encounter Details Date Type Department Care Team (Late st Contact Info) Description 10/29/2024 Refill [facility] [address] [place] [address] Sariah Vickers ANP 230 [place] [address] Neck pain Social History Tobacco Use Types [...] 11/05/2024 2:30 PM EDT Office Visit [address] [address] Hallie Tapia MD [address] [place] [address] 11/12/2024 9:30 AM EDT Clinical Support [address] [address] Azeb Hall, RN 505 [place] [address] 01/11/2025 1:00 PM EST Office Visit [address] [address] Sariah Vickers, KAYLEE [address] [place] [address] 02/03/2025 11:00 AM EST Medication Management [address] [address] Yuri Pierre, PharmD 230 [place] [address] documented as of this encounter Goals Goal [...] as of this encounter Care Teams Machine Brush Maker Relationship Specialty Start Date End Date Sariah Vickers ANP 230 [place] [address] PCP - General Family Medicine 09/23/19 Yuri Pierre, PharmD 230 [place] [address] Pharmacist Internal Medicine 05/05/24 Basilio Hall MD [address] [place] [address] Cardiology 05/17/24 Ron Preciado MD [address] [place] [address] Pulmonary Disease 05/17/24 documented as of this encounter
--- OUTSIDE RECORDS SUMMARY | 2024-11-01 21:47 | XMS_ITS | Encounter Summary ---
Author Organization [employer] Address [address] [facility] 7t [place] [address] Care Team Providers Care Improvement Rn Name Role Phone Sariah Vickers Primary Care Provider [phone] Yuri Pierre PharmD Unavailable [phone] Basilio Hall MD Unavailable [phone] Ron Preciado MD Unavailable [phone] Reason for Visit * Reason Comments Med Refill Encounter Details Date Type Department Care Team (Late st Contact Info) Description 07/12/2022 Refill [facility] MEDICINE 230 [place] [address] Sariah Vickers ANP 230 [place] [address] Social History Tobacco Use Types Packs/Day Years [...] 11/05/2024 2:30 PM EDT Office Visit [address] [address] Hallie Tapia MD [address] [place] [address] 11/12/2024 9:30 AM EDT Clinical Support [address] [address] Azeb Hall RN 505 [place] [address] 01/11/2025 1:00 PM EST Office Visit [address] [address] Sariah Vickers ANP [address] [place] [address] 02/03/2025 11:00 AM EST Medication Management [address] [address] Yuri Pierre, PharmBear [address] [place] [address] documented as of this encounter Visit Diagnoses Not on filedocumented in this encounter Care Teams Improvement Rn Relationship Specialty Start Date End Date Sariah Vickers ANP [address] [place] [address] PCP - General Family Medicine 09/23/19 Yuri Pierre, PharmD [address] [place] [address] Pharmacist Internal Medicine 05/05/24 Basilio Hall MD 596 [place] [address] Cardiology 05/17/24 Ron Preciado MD [address] [place], [place] [phone] Pulmonary Disease 05/17/24 documented as of this encounter
--- OUTSIDE RECORDS SUMMARY | 2024-11-01 21:47 | XMS_ITS | Encounter Summary ---
Author Organization [employer] Address 75 [facility] 7t [place] [address] Care Team Providers Care Vb Net Developer Name Role Phone Sariah Vickers Primary Care Provider [phone] Yuri Pierre PharmD Unavailable [phone] Basilio Hall MD Unavailable [phone] Ron Preciado MD Unavailable [phone] Reason for Visit * Reason Onset Date Comments Nurse Triage 01/14/2023 Encounter Details Date Type Department Care Team (Late st Contact Info) Description 01/14/2023 Telephone [facility] MEDICINE 230 [place] [address] Sariah Vickers ANP 230 [place] [address] Nurse Triage Social History Tobacco Use Types [...] 01/14/2023 9:26 AM EST Called pt. Via [employer] sign language interpreter [id number] Kelly. Pt. States that she has been having a fire feeling in her legs. Its like A burning that goes down her legs . Pt. Unsure if it because of her Diabetes. Pt. [place] [facility] [place] [...] at 10am. Will send note to clinical behavioral health care coordinator to have note put in [...] Severe pain now, pt was [place] [facility] [place] for pain in leg. Pt is still symptomatic The caller accepted this outcome Please contact pt at [phone] (historical interpreter needed) documented in this encounter Plan of Treatment Upcoming Encounters Date Type Department Care Team (Late st Contact Info) Description 11/05/2024 2:30 PM EDT Office Visit [address] [address] Hallie Tapia MD [address] [place] [address] 11/12/2024 9:30 AM EDT Clinical Support [address] [address] Azeb Hall RN 505 [place] [address] 01/11/2025 1:00 PM EST Office Visit [address] [address] Sariah Vickers ANP [address] [place] [address] 02/03/2025 11:00 AM EST Medication Management [address] [address] Yuri Pierre, MikeD [address] [place] [address] documented as of this encounter Goals Goal Patient Goal Type Associated Problems Recent Progress Patient-Stated? Author Blood Pressure < 140/90 Blood Pressure 120/80(2024 2:59 PM EDT) No Aida Ragland PharmD Record Your Blood Sugar As Directed General No Aida Ragland PharmD Hemoglobin A1c < 7 Result Component 6.6( 5 1:54 PM EDT) No Aida Ragland PharmD documented as of this encounter Visit Diagnoses Not on filedocumented in this encounter Care Teams Vb Net Developer Relationship Specialty Start Date End Date Sariah Vickers ANP 230 [place] [address] PCP - General Family Medicine 09/23/19 Yuri Pierre, MikeD [address] [place] [address] Pharmacist Internal Medicine 05/05/24 Basilio Hall MD [address] [place] [address] Cardiology 05/17/24 Ron Precaido MD [address] [place] [address] Pulmonary Disease 05/17/24 documented as of this encounter
--- OUTSIDE RECORDS SUMMARY | 2024-11-01 21:47 | XMS_ITS | Encounter Summary ---
Author Organization [employer] Address 75 [facility] 7t [place] [address] Care Team Providers Care Mainspring Strip Gauger Name Role Phone Sariah Vickers Primary Care Provider [phone] Yuri Pierre PharmD Unavailable [phone] Basilio Hall MD Unavailable [phone] Ron Preciado MD Unavailable [phone] Reason for Visit * Reason Comments Med Refill Encounter Details Date Type Department Care Team (Late st Contact Info) Description 07/10/2023 Refill [facility] 230 [place] [address] Sariah Vickers ANP 230 [place], [place] [phone] Chronic SI joint pain Social History Tobacco [...] 11/05/2024 2:30 PM EDT Office Visit [address] [address] Hallie Tapia MD [address] [place] [address] 11/12/2024 9:30 AM EDT Clinical Support [address] [address] Azeb Hall RN 505 [place] [address] 01/11/2025 1:00 PM EST Office Visit [address] [address] Sariah Vickers, KAYLEE [address] [place] [address] 02/03/2025 11:00 AM EST Medication Management [address] [address] Yuri Pierre, PharmD [address] [place] [address] documented as of this encounter Goals Goal Patient Goal Type Associated Problems Recent Progress Patient-Stated? Author Blood Pressure < 140/90 Blood Pressure 120/80(2024 2:59 PM EDT) No Phanis-Dileepl Aida urbina, PharmD [...] documented as of this encounter Care Teams Mainspring Strip Gauger Relationship Specialty Start Date End Date Sariah Vickers ANP 230 [place] [address] PCP - General Family Medicine 09/23/19 Yuri Pierre, MikeD 230 [place] [address] Pharmacist Internal Medicine 05/05/24 Basilio Hall MD [address] [place] [address] Cardiology 05/17/24 Ron Preciado MD [address] [place] [address] Pulmonary Disease 05/17/24 documented as of this encounter
--- OUTSIDE RECORDS SUMMARY | 2024-11-01 21:47 | XMS_ITS | Encounter Summary ---
Author Organization [employer] Address [address] [facility] 7t [place] [address] Care Team Providers Care Spinner Frame Name Role Phone Sariah Vickers Primary Care Provider [phone] Yuri Pierre PharmD Unavailable [phone] Basilio Hall MD Unavailable [phone] Ron Preciado MD Unavailable [phone] Reason for Visit * Reason Onset Date Comments Med Refill 03/04/2023 Encounter Details Date Type Department Care Team (Late st Contact Info) Description 03/04/2023 Telephone [facility] MEDICINE 230 [place], [place] [phone] Sariah Vickers ANP 230 [place], [place] [phone] Med Refill Social History Tobacco Use Types [...] 50 MG tablet To be sent to: [facility] - [place], [place] - [address] [place] [address] documented in this encounter Plan of Treatment Upcoming Encounters Date Type Department Care Team ([facility] st Contact Info) Description 11/05/2024 2:30 PM EDT Office Visit [address] [address] Hallie Tapia MD [address] [place] [address] 11/12/2024 9:30 AM EDT Clinical Support [address] [address] Azeb Hall RN 505 [place] [address] 01/11/2025 1:00 PM EST Office Visit [address] [address] Sariah Vickers, ANP [address] [place] [address] 02/03/2025 11:00 AM EST Medication Management [facility] MEDICINE 230 [place] [address] Yuri Pierre, PharmD 230 [place] [address] documented as of this encounter Goals Goal [...] on filedocumented in this encounter Care Teams Spinner Frame Relationship Specialty Start Date End Date Sariah Vickers ANP [address] [place] [address] PCP - General Family Medicine 09/23/19 Yuri Pierre, PharmD 230 [place] [address] Pharmacist Internal Medicine 05/05/24 Basilio aHll MD [address] [place] [address] Cardiology 05/17/24 Ron Preciado MD [address] [place] [address] Pulmonary Disease 05/17/24 documented as of this encounter
--- OUTSIDE RECORDS SUMMARY | 2024-11-01 21:47 | XMS_ITS | Clinical Summary ---
Author Organization [address] [facility] Address [address] [place] [address] Phone Care Team Providers Care Men'S Garment Fitter Name Role Phone Sariah Vickers NP Primary Care Provider [phone] Social History Tobacco Use Types Packs/Day Years [...] age to complete this topic Care Teams Men'S Garment Fitter Relationship Specialty Start Date End Date Sariah Vickers NP [address] [place] [phone] PCP - General 12/03/23
--- OUTSIDE RECORDS SUMMARY | 2024-11-01 21:47 | XMS_ITS | Clinical Summary ---
Author Organization [employer] Address [address] [place] [address] Care Team Providers Care Director Of Catering Sales Name Role Phone Anthony Ruiz KAYLEE Primary Care Provider [phone] Yuri Pierre PharmD Unavailable [phone] Basilio Hall MD Unavailable [phone] Ron Preciado MD Unavailable [phone] Allergies Active Allergy Reactions Criticality Noted [...] mouth in the morning. Active Lactobacillus-In ulin ([facility] [email or web address] [facility]) capsule 023 Active Xolair 150 MG/ML [...] 2 diabetes mellitus with hyperlipidemia (CMS/HCC) ([facility]) USE DIRECTED THREE TIMES DAILY [...] 90 tablet 4 025 Active Continuous Glucose Parts Classifier (FreeStyle Jalil 3 [place]) device 1 each Once per day. Use [...] pen-injectorIndi cations:Type 2 diabetes mellitus with hyperlipidemia ([facility]/HCC) ([facility]) Inject 0.5 mg under the skin 1 (one) time per week. 1 each 025 Active insulin lispro (HumaLOG KWIKPEN) 100 UNIT/ML injectionIndicat ions:Type 2 diabetes mellitus with hyperlipidemia (CMS/HCC) ([facility]) Take 4-6 units as needed [...] with long-term current use of insulin ([facility]) Administer 3 mg into affected [...] Type 2 diabetes mellitus with hyperglycemia ([facility]) TEST BLOOD SUGAR FOUR TIMES [...] BEDTIME NEEDED FOR SEVERE PAIN 60 tablet Active fluticasone (Flonase) 50 MCG/ACT nasal spray INSTILL 2 SPRAYS IN EACH NOSTRIL ONCE DAILY IN THE MORNING 16 g 3 Active potassium chloride CR (Klor-Con M20) 20 MEQ ER tablet TAKE 1 TABLET BY MOUTH TWICE DAILY IN THE MORNING AND IN THE EVENING 180 tablet 1 Active acetaminophen (Tylenol) 325 MG tabletIndication s:Neck pain TAKE 1 TO 2 TABLETS BY MOUTH EVERY 6 HOURS NEEDED 120 tablet Active levoFLOXacin (Levaquin) 750 MG tablet Take 1 tablet by mouth Once per day. Active predniSONE (Deltasone) 20 MG tablet Take 2 tablets by mouth Once per day. Active glucose blood (FREESTYLE LITE) test strip [...] side 02/13/2024 Type 2 diabetes mellitus 02/13/2024 Moderate episode of recurrent major depressive d [...] is currently connected with MH services through [facility]. Pt needing additional support [...] her family. She will continue services with [facility] for OP therapy and psychiatry services. clinician will be available if needed during next medical appointment. PLAN: (check all that apply) Continue with current services (defined as services in the past 12 months) . Pt is engaged with OP therapy and psychiatry services with [facility] @ [facility] Excessive attrition of teeth, generalized 2023 [...] her family. She will continue services with [facility] for OP therapy and psychiatry services. clinician will be available if needed during next medical appointment. PLAN: (check all that apply) Continue with current services (defined as services in the past 12 months) . Pt is engaged with OP therapy and psychiatry services with [facility] @ [facility] Fibromyalgia 07/31/2022 Asthma-COPD overlap syndrome 07/31/2022 [...] for possible plantar fasciitis -referred today to security installation technician x ongoing discomfort -may need orthopedic shoes [...] therapy and psychiatry with N at [facility]. Sees psych provider every two months and therapist bi-weekly. Pt will reach out to clinician as needed. Assessment & Plan (04/10/2023 11:08 AM EST): PLAN: (check all that apply) Behavioral Health Integration Plan Patient Self Plan Patient to reach out to [facility] team as needed Assessment & Plan [...] Problem Noted Date Diagnosed Date Resolved Date COVID-19 10/08/2023 11/01/2024 Assessment & Plan (10/08/2023 10:06 AM EDT): -COVID-19 positive, symptoms mild to moderate -no evidence of respiratory distress -pt meets criteria for Paxlovid therapy -supportive care with fluids, rest and OTC analgesics -giving low dose prednisone for a course of 5 days -isolation discussed -work/school note given -seek medical attention for worsening symptoms Acute cough 09/04/2023 05/17/2024 Otitis externa of [...] organization. Date Type Department Care Team Description 11/01/2024 2:45 PM EDT Office Visit [facility] [address] [place] [phone] Reta Sue MD Vulvar itching (Primary Dx); Dietary counseling; Exercise counseling; Class 2 obesity without serious comorbidity with body mass index (BMI) of 35.0 to 35.9 in adult, unspecified obesity type 11/01/2024 Travel 10/29/2024 Refill [facility] P[facility] [address] [place] [address] Anthony Ruiz ANP Neck pain 10/26/2024 Results Follow-Up [facility] [address] [place] [address] Anthony Ruiz ANP Thyroid Peroxidase Antibodies, Cardiolipin Antibodies (IgA,IgG,IgM) 10/25/2024 Refill [facility] [address] [place] [address] Anthony Ruiz ANP 10/23/2024 Refill [facility] [address] [place] [address] Anthony Ruiz ANP 10/22/2024 Orders Only GENERIC EXTERNAL DATA DEPARTMENT Provider, Generic External Data 10/20/2024 Results Follow-Up [address] [address] Anthony Ruiz ANP Prothrombin Time-INR, C-reactive Protein, Amylase, Additional followed-up results: 7 10/19/2024 Refill [facility] MED & PEDS [address] [place] [address] Anthony Ruiz ANP Cervicalgia 10/14/2024 1:30 PM EDT Office Visit [facility] [address] [place] [address] Anthony Ruiz ANP Type 2 diabetes mellitus with hyperlipidemia (CMS/HCC) (CMS/HCC) (Primary Dx); Chronic pain of both knees; Chronic SI joint pain; Primary osteoarthritis of both knees; Essential hypertension; Long-term current use of opiate analgesic; OKEEFE (nonalcoholic steatohepatitis); Asthma-COPD overlap syndrome (CMS/HCC) 10/14/2024 Travel 10/13/2024 10:40 AM EDT Office Visit [facility] [address] [place] [address] Chava Presley MD Essential hypertension (Primary Dx) 10/13/2024 Travel 10/12/2024 Orders Only GENERIC EXTERNAL DATA DEPARTMENT Provider, Generic External Data 10/09/2024 Refill [facility] [address] [place] [address] Anthony Ruiz ANP Severe persistent asthma without complication 10/06/2024 Travel 10/04/2024 Refill [facility] MED & PEDS [address] [place] [address] Zakia Uriostegui NP Type 2 diabetes mellitus with hyperglycemia (CMS/HCC) 10/01/2024 11:00 AM EDT Clinical Support [facility] [address] [place] [address] Azeb Hall, RN Neck pain 10/01/2024 Telephone [facility] [address] [place] [address] Azeb Hall, MARTIN 10/01/2024 Travel 09/30/2024 Telephone [facility] [address] [place] [address] Anthony Ruiz ANP Referral 09/30/2024 Telephone [facility] [address] [place] [address] Anthony Ruiz ANP Referral 09/30/2024 Refill [facility] [address] [place] [address] Anthony Ruiz ANP Chronic SI joint pain 09/28/2024 Orders Only [facility] [address] [place] [address] Anthony Ruiz ANP 09/25/2024 Refill [facility] [address] [place] [address] Anthony Ruiz ANP Chronic SI joint pain; Essential hypertension; Severe persistent asthma without complication 09/24/2024 2:00 PM EDT Office Visit [facility] [address] [place] [address] Luisa Martinez, OD Diabetes type 2, no ocular involvement ([facility]) (Primary Dx); Mixed type age-related cataract, both eyes; Lesion of left lower eyelid; Presbyopia 09/24/2024 Travel 09/19/2024 Refill [facility] MED [facility] PED[facility] [address] [place] [address] Debra Faye MD Cervicalgia 09/16/2024 Refill [facility] MED & PEDS [address] [place] [address] Zakia Uriostegui NP Type 2 diabetes mellitus with hyperglycemia (CMS/HCC); Neck pain 09/03/2024 Telephone [facility] [address] [place] [address] Anthony Ruiz ANP Appointment Request 09/02/[address] [phone] Anthony Ruiz ANP Durable Medical Equipment 08/26/[address] [address] Anthony Ruiz ANP Durable Medical Equipment 08/23/2024 Refill [facility] [address] [place] [address] Anthony Ruiz ANP Type 2 diabetes mellitus with hyperglycemia ([facility]) 08/21/2024 Refill [facility] [address] [place] [address] Anthony Ruiz ANP Cervicalgia; Chronic bilateral low back pain, unspecified whether sciatica present 08/20/2024 Refill [facility] [address] [place] [address] Anthony Ruiz ANP Chronic bilateral low back pain, unspecified whether sciatica present 08/19/2024 9:00 AM EDT Office Visit [facility] [address] [place] [address] Ramon Damon MD Viral URI with cough 08/16/2024 Refill [facility] [address] [place] [address] Debra Faye MD Neck pain 08/13/2024 Orders Only [address] [address] Leora Hoffman RN 08/11/2024 4:00 PM EDT Office Visit [facility] [address] [place] [phone] Brittney Nava MD Constipation, unspecified constipation type (Primary Dx) 08/11/2024 Travel 08/10/2024 Telephone [facility] [address] [place] [address] Anthony Ruiz ANP Prior Authorization 08/04/2024 1:00 PM EDT Office Visit [facility] [address] [place] [phone] Nuvia Duarte Dental plaque (Primary Dx); Gingival recession, generalized; Missing teeth, acquired; Excessive attrition of teeth, generalized 08/04/2024 Travel 08/02/[address] [address] Anthony Ruiz ANP Referral from Last 3 [...] 20 11/01/2024 2:59 PM EDT Oxygen Saturation 98% 10/14/2024 1:50 PM EDT Inhaled Oxygen Concentration - - Weight 93.8 kg (206 lb 12.8 oz) 11/01/2024 2:59 PM EDT Height 160 cm (5' 3 ) 11/01/2024 2:59 PM EDT Body Mass Index 36.63 11/01/2024 2:59 PM EDT Plan of Treatment Upcoming Encounters Date Type Department Care Team (Late st Contact Info) Description 11/05/2024 2:30 PM EDT Office Visit [address] [address] Hallie Tapia MD [address] [place] [address] 11/12/2024 9:30 AM EDT Clinical Support [address] [address] Azeb Hall, MARITN [address] [place] [address] 01/11/2025 1:00 PM EST Office Visit [address] [address] Anthony Ruiz ANP [address] [place] [address] 02/03/2025 11:00 AM EST Medication Management [address] [address] Yuri Pierre, PharmD [address] [place] [phone] Health Maintenance Due Date Last Done Comments [...] 2025 08/05/19 25, 09/12/2023, 08/12/2022 Tobacco Screening 11/01/2025 11/01/2024 Dental X-Ray: Full Mouth 09/12/2026 09/12/2023, 09/18 [...] WITH REFLEX Routine 10/22/2024 10:49 AM EDT [id number]-[id number] I ANTIBODIES (IGG, IGA, IGM) Routine 10/22/2024 10:49 AM EDT ACTIN (SMOOTH MUSCLE) ANTIBODY (IGG) Routine 10/22/2024 10:49 AM EDT CARDIOLIPIN AB (IGA,IGG,IGM) Routine 10/22/2024 10:49 AM EDT THYROID PEROXIDASE ANTIBODIES Routine 10/22/2024 10:49 AM EDT POCT GLYCATED HEMOGLOBIN, TOTAL Routine 10/14/2024 1:54 PM EDT Type 2 diabetes mellitus with hyperlipidemia (CMS/HCC) ([facility]) POCT GLUCOSE Routine 10/14/2024 1:52 [...] Recently Relevant to Health Maintenance Results * Msjs-6-Bxlfvnsygjho I Antibodies (IgG, IgA, IgM) (10/22/2024 10:49 AM EDT) B2 Glycoprotein I IgG Antibody <2.0 <20.0 U/mL [facility] Comment:Value Interpretation ----- < 20.0 Antibody not detected> or = 20.0 Antibody detected B2 Glycoprotein I IgM Antibody <2.0 <20.0 U/mL [facility] Comment:Value Interpretation ----- < 20.0 Antibody not detected> or = 20.0 Antibody detected B2 Glycoprotein I IgA Antibody <2.0 <20.0 U/mL [facility] Comment: Value Interpretation----- < 20.0 Antibody not detected> or = 20.0 Antibody detectedThe antiphospholipid antibody syndrome (APS) is aclinical- pathologic correlation that includes aclinical event (e.g. arterial or venous thrombosis, morbidity) and persistent positiveantiphospholipid antibodies (IgM, IgG Cardiolipin ljv1BZT antibodies greater than the 99th percentile;or a [...] therapy or aging.For additional information, please refer tohttp://education.Transactis/faq/FQE975(This link is being provided for informational/educational purposes only.)THIS TEST WAS PERFORMED AT:[employer]/[id number] [place] [address]ZAFENEHDENA CASAS MD,PHD 10/22/2024 10:4 9 AM EDT 10/22/2024 10:49 AM EDT Generic External Data Provider LAB BLOOD ORDERAB LES Final Result Performing Organization Address [facility]/ZIP Co de Phone Number [facility] [address] [place] [phone] * (ABNORMAL) Thyroid Peroxidase Antibodies (10/22/2024 10:49 AM EDT) Thyroid Peroxidase Antibodies >900(A) <9 IU/mL [facility] Comment:THIS TEST WAS PERFOR MED AT:[facility] [address] [address]XBHVEHERNAN WARREN MD 10/22/2024 10:4 9 AM EDT 10/22/2024 10:49 AM EDT Generic External Data Provider LAB BLOOD ORDERAB LES Final Result Performing Organization Address [facility] Co de Phone Number [facility] [address] [place] [phone] * (ABNORMAL) Actin (Smooth Muscle) Antibody (IgG) (10/22/2024 10:49 AM EDT) Only the most recent of2 resultswithin the time period is included. Smooth Muscle Antibody 47(A) <20 U [facility] Comment:Reference Range: <20 U: Negative>or=20 [...] with AIH type 1.THIS TEST WAS PERFORMED AT:[employer] [id number] [place] [address]BNORACADEAN CASAS MD,PHD 10/22/2024 10:4 9 AM EDT 10/22/2024 10:49 AM EDT us Generic External Data Provider LAB BLOOD ORDERAB LES Final Result [facility] [address] [place] [phone] * Lupus Anticoagulant Evaluation with Reflex (10/22/2024 10:49 AM EDT) Lupus Interpretation see note [facility] Comment:A Lupus Anticoagulan t is not detected.Reference Range: Not DetectedFor additional information, please refer tohttp://education.Transactis/faq/GQG75k4(This link is being provided for informational/educational purposes only.)This interpretation is based on the following testresults. PTT (LAC) Screen 33 <=40 sec [facility] DRVVT Screen 35 <=45 sec [facility] Comment:THIS TEST WAS PERFOR MED AT:[employer] [id number] [place] [address]XQESMMCDEAN CASAS MD,PHD dRVVT Confirmation [facility] dRVVT 1:1 Mix TNP [facility] DRVVT 1:1 Mix Interpretation [facility] Hexagonal Phase Neutralization [facility] Thrombin Clotting Time [facility] 10/22/2024 10:4 9 AM EDT 10/22/2024 10:49 AM EDT us Generic External Data Provider LAB BLOOD ORDERAB LES Final Result Performing Organization Address City/[facility]/ZIP Co de Phone Number [facility] [address] [place] [address] [phone] * Cardiolipin Antibodies (IgA,IgG,IgM) (10/22/2024 10:49 AM EDT) Cardiolipin Antibody (IgG) <2.0 GPL-U/mL [facility] Comment:Value Interpretation ----- < 20.0 Antibody not detected> or = 20.0 Antibody detected Cardiolipin Antibody (IgM) <2.0 MPL-U/mL [facility] Comment: Value Interpretation----- < 20.0 Antibody not detected> or = 20.0 Antibody detectedThe antiphospholipid antibody syndrome (APS) is aclinical- pathologic correlation that includes aclinical event (e.g. arterial or venous thrombosis, morbidity) and persistent positiveantiphospholipid antibodies (IgM, IgG Cardiolipin mnm7ZOH antibodies greater than the 99th percentile; ora [...] therapy or aging.For additional information, please refer tohttp://education.Transactis/faq/RBX658(This link is being provided for informational/educational purposes only.)THIS TEST WAS PERFORMED AT:[employer] [place] [address]HHJPOHERNAN WARERN MD 10/22/2024 10:4 9 AM EDT 10/22/2024 10:49 AM EDT us Generic External Data Provider LAB BLOOD ORDERAB LES Final Result Performing Organization Address [facility]/ZIP Co de Phone Number [facility] [address] [place] [address] [phone] * (ABNORMAL) POCT HGB A1C (10/14/2024 1:54 PM EDT) Pathologist [facility] Hemoglobin A1C 6.6(A) 4.0 - 5.7 % QC Media Lot # [id number] Lot# Expiration Date ,027 Blood 10/14/2024 1:54 PM EDT Anthony Alee ANP POINT OF CARE TEST ENTER/EDIT OR DERABLES Final Result * POCT Glucose (10/14/2024 1:52 PM EDT) [facility] Glucose Blood, POC 121 60 - 200 mg/dL QC Media Lot # [id number] Lot# Expiration Date 2389,026 Blood Capillary blood specimen / Unknown 10/14/2024 1:52 PM EDT Anthony Ruiz ANP POINT OF CARE TEST ENTER/EDIT OR DERABLES Final Result * (ABNORMAL) TSH with Reflex to Free T4 (10/12/2024 2:10 PM EDT) [facility] TSH reflex Free T4 6.80(H) 0.32 - 4.0 uIU/mL [facility] 10/12/2024 2:10 PM EDT 10/12/2024 2:10 PM EDT Generic External Data Provider LAB BLOOD ORDERAB LES Final Result [facility] [address] [place] [address] [phone] * Prothrombin Time-INR (10/12/2024 2:10 PM EDT) [facility] Prothrombin Time 10.9 10.9 - 12.4 SEC [facility] INTERNATIONAL NORM RATIO 1.0 0.9 - 1.1 [facility] Comment:INTERNATIONAL NORMAL IZED RATIO (INR) [...] ORDERAB LES Final Result Performing Organization Address [facility]/ZIP Co de Phone Number [facility] [address] [place] [phone] * C-reactive Protein (10/12/2024 2:10 PM EDT) C Reactive Protein 0.31 < or = 0.50 mg/dL [facility] 10/12/2024 2:10 PM EDT 10/12/2024 2:10 PM EDT [employer] External Data Provider LAB BLOOD ORDERAB LES Final Result Performing Organization Address [facility] Co de Phone Number [facility] [address] [place] [phone] * (ABNORMAL) REX Screen,IFA, with Reflex to Titer and Pattern (10/12/2024 2:10 PM EDT) Anti Nuclear Antibody Screen POSITIV E(A) NEGATIVE [facility] Comment:REX IFA is a first l ine screen for detecting thepresence of up to approximately 150 autoantibodies invarious autoimmune diseases. A positive REX IFA resultis suggestive of autoimmune disease and reflexes totiter and pattern. Further laboratory testing may beconsidered if clinically indicated.For additional information, please refer tohttp://education.[employer]/faq/EQN492(This link is being provided for informational/educational purposes only.)THIS TEST WAS PERFORMED AT:[facility] [id number] [place] [address]- DANIEL WARREN MD REX Titer 1:1280( A) titer [facility] Comment:Reference Range <1:4 0 Negative 1:40-1:80 Low Antibody Level >1:80 Elevated Antibody Level REX Pattern Nuclear , Homogen eous(A) [facility] Comment:Homogeneous pattern is associated with systemic lupuserythematosus (SLE), drug-induced lupus and juvenileidiopathic arthritis.AC-1: HomogeneousInternational Consensus on REX Patterns(https://doi.org/10.[facility]5/bdom-5748-5611)THIS TEST WAS PERFORMED AT:[employer] [id number] [place] [address]JACY WARREN MD REX TITER 2 (REF LAB) [facility] REX Pattern 2 TNP [facility] REX TITER 3 [facility] REX PATTERN 3 TNP [facility] 10/12/2024 2:10 PM EDT 10/12/2024 2:10 PM EDT us Generic External Data Provider LAB BLOOD ORDERAB LES Final Result Performing Organization Address City/[facility]/ZIP Co de Phone Number [facility] [address] [place] [phone] * T4, Free (10/12/2024 2:10 PM EDT) Free T4 (Free Thyroxine) 0.99 0.71 - 1.85 ng/dL [facility] 10/12/2024 2:10 PM EDT 10/12/2024 2:10 PM EDT Generic External Data Provider LAB BLOOD ORDERAB LES Final Result Performing Organization Address [facility]/ZIP Co de Phone Number [facility] [address] [place] [phone] * Lipase (10/12/2024 2:10 PM EDT) Lipase 20 8 - 78 U/L [facility] 10/12/2024 2:10 PM EDT 10/12/2024 2:10 PM EDT us Generic External Data Provider LAB BLOOD ORDERAB LES Final Result Performing Organization Address City/[facility]/ZIP Co de Phone Number [facility] [address] [place] [phone] * (ABNORMAL) Hemoglobin A1c (10/12/2024 2:10 PM EDT) Hemoglobin A1c 6.5(H) <6.0 % [facility] Comment:Hemoglobin A1C Refer ence Range Adults: 4.8 - 6.0 % Non diabetic: < 6.0 % Goal: < 7.0 %Additional Action Suggested: > 8.0 %Note: Hemoglobin A1c results are invalid for patients with abnormal amounts of HbF. Blood transfusions may impact the HbA1c concentration in the patient sample. Estimated Average Glucose 140 mg/dL [facility] Comment:eAG = Estimated ave rage glucose which is %A1C expressed asaverage glucose, using the formula of the I1M-YsnkreiGsglabo Glucose study (ADAG), Diabetes Care, Vol.31,#8,Sep. 2007 10/12/2024 2:10 PM EDT 10/12/2024 2:10 PM EDT us Generic External Data Provider LAB BLOOD ORDERAB LES Final Result Performing Organization Address City/[facility]/ZIP Co de Phone Number [facility] [address] [place] [address] [phone] * Ferritin (10/12/2024 2:10 PM EDT) Ferritin 69 10 - 250 ng/mL [facility] 10/12/2024 2:10 PM EDT 10/12/2024 2:10 PM EDT us Generic External Data Provider LAB BLOOD ORDERAB LES Final Result Performing Organization Address City/[facility] Co de Phone Number [facility] [address] [place] [phone] * Amylase (10/12/2024 2:10 PM EDT) Amylase 36 28 - 100 U/L [facility] 10/12/2024 2:10 PM EDT 10/12/2024 2:10 PM EDT Generic External Data Provider LAB BLOOD ORDERAB LES Final Result Performing Organization Address [facility] de Phone Number [facility] [address] [place] [phone] * CT Lung Screening Low dose (10/09/2024 1:18 PM EDT) Anatomical Region Laterality Modality Lung Computed Tomogra phy 10/09/2024 1:18 PM EDT Narrative 10/09/2024 1:20 PM EDT [address] [address] [address] Scan Report Signed Patient: Nuvia Fay MR #: [id number] : 1960 Acct:[id number] Age/Sex: 64 / F ADM Date: 10/08/24 Loc: HO.CT Attending Dr: Ron Preciado MD Ordering Physician: Ron Preciado MD Date of Service: 10/08/24 Procedure(s): CT lung screening Accession Number(s): [id number] cc: Ron Preciado MD; ANTHONY RUIZ NP Report Number: [id number]: Total DLP = 64.00 mGy-cm CLINICAL HISTORY: [...] 10/09/24 1319 DD/ 1318 TD/TT: 10/09/24 1318 Char Dust Cleaner And Salvager: Procedure Note Donotuseinterpreter, Image - 10/09/[address] [address] [address] Scan Report Signed Patient: Nuvia Fay EMR #: [id number] : 1960cct:[id number] Age/Sex: 64 / FADM Date: 10/08/24 Loc: HO.CT Attending Dr: Ron Preciado MD Ordering Physician: Ron Preciado MD Date of Service: 10/08/24 Procedure(s): CT lung screening Accession Number(s): [id number] cc: Ron Preciado MD; ANTHONY RUIZ NP Report Number: [id number]: Total DLP = 64.00 mGy-cm CLINICAL HISTORY: [...] Myrick MD in OV> 10/09/24 1319 DD/ TD/TT: 10/09/241317 Char Dust Cleaner And Salvager: [facility] External Provider IMG CT PROCEDURES Edited [...] - 10/01/2024 10:43 AM EDT .UTOX cup Lot#[id number] Exp. 11/23/25 Internal Pass Control Anthony PAGE POINT OF CARE TEST ENTER/EDIT OR DERABLES Final Result * Influenza A (ID NOW Rapid Molecular) (08/19/2024 9:20 AM EDT) Influenza A Negative Negative, Indeterminate [facility] Swab 08/19/2024 9:20 AM EDT Ramon Damon MD POINT OF CARE TEST ENTER/EDIT OR DERABLES Final Result [facility] [address] [place] [phone] * Influenza B (ID NOW Rapid Molecular) (08/19/2024 9:19 AM EDT) Pathologist [facility] Influenza B Negative Negative, Indeterminate [facility] Swab 08/19/2024 9:19 AM EDT Result [facility] Ramon Damon MD POINT OF CARE TEST ENTER/EDIT OR DERABLES Final Result [facility] [address] [place] [phone] * POCT Rapid COVID Ag (08/19/2024 9:11 AM EDT) Pathologist [facility] Rapid COVID Ag Negative Swab 08/19/2024 9:11 AM EDT Result [facility] Ramon Damon MD POINT OF CARE TEST ENTER/EDIT OR DERABLES Final Result * (ABNORMAL) Syphilis Antibodies (DPH) (08/06/2024) Pathologist [facility] Syphilis Abs Reactive(A) Borderline, Nonreactive, Weakly Reactive, Inconclusive, Specimen unsatisfactory for evaluation Syphilis RPR Nonreactive Blood Venous blood specimen / Unknown 08/06/2024 Result [facility] Provider LAB BLOOD ORDERABLES Kelsey l Result * Hepatitis C Antibody ([place] DPH) (08/06/2024) Pathologist [facility] Hepatitis C Ab Nonreactive Blood 08/06/2024 Result [facility] Provider LAB BLOOD ORDERABLES Kelsey l Result * HIV Ab/Ag ([place] DPH) (08/06/2024) Pathologist [facility] HIV Ag/Ab Nonreactive Blood 08/06/2024 Result [facility] Provider LAB BLOOD ORDERABLES Kelsey l Result * Referral to Rheumatology (08/06/2024) 08/06/2024 Anthony Ruiz ANP OUTPATIENT REFERRAL ORDERABLES F inal Result * (ABNORMAL) Lipid Panel, Standard (06/18/2024 10:18 AM EDT) Triglycerides 122 <150 mg/dL [facility] Comment:Desirable Triglyceri de: less than 150 mg/dLBorderline High Triglyceride 150-199 mg/dLHigh Triglyceride: 200-499 mg/dLVery High Triglyceride: greater than or equal to 5OO mg/dL Cholesterol 216(H) <200 mg/dL [facility] Comment:Desirable Cholestero l: less than 200 mg/dLBorderline High Cholesterol: 200-239 mg/dLHigh Cholesterol: greater than 239 mg/dL LDL Cholesterol Calculated 128(H) <100 mg/dL [facility] Comment:Desirable LDL: less than 100 mg/dLNear Optimal/Above Optimal LDL: 110- 129 mg/dLBorderline High LDL: 130-159 mg/dLHigh LDL: 160-189 mg/dLVery High LDL: greater than or equal to 190 mg/dL HDL Cholesterol 64 >40 mg/dL [facility] Comment:Desirable HDL: great er than 40 mg/dL Note: This HDL assay may give artificially low results in patients with liver disease. Blood Venous blood specimen / Unknown 06/18/2024 10:18 AM EDT 06/18/2024 11:08 AM EDT Anthony Ruiz ANP LAB BLOOD ORDERABLES Final Resul t [facility] [address] [place] [address] [phone] * BI Mammogram Screening Tomosynthesis Bilateral (04/12/2024 1:48 PM EST) Anatomical Region Laterality Modality Breast Bilateral Mammography 04/12/2024 1:48 PM EST Narrative 04/17/2024 12:38 PM EST [address] [place] [address] Mammography Report Signed Patient: Nuvia Fay MR #: [id number] : 1960 Acct:[id number] Age/Sex: 63 / F ADM Date: 04/12/24 Loc: HO.MAMMO Attending Dr: Monica Lozano CNM Ordering Physician: Monica Lozano CNM Results: 2Beni gn Findings Date of Service: 04/12/24 Follow Up: 1 Year From Orig inal Mammogram Procedure(s): MM tomosynthesis screening BI Accession Number(s): [id number] cc: Monica Lozano CNM; ANTHONY RUIZ NP [...] by: Cherrie Roberts DO 04/17/2024 12:35 PM [facility] Dictated By: Cherrie Roberts DO Signed By: <Electronically signed by Cherrie Roberts DO in OV> 04/17/24 1235 DD/ 1348 TD/TT: 04/12/24 1405 Char Dust Cleaner And Salvager: Procedure Note Donotuseinterpreter, Image - 04/17/2024 [facility] [address] [place] [address] [place] [address] Mammography Report Signed Patient: Nuvia Fay EMR #: [id number] : 1960cct:[id number] Age/Sex: 63 / FADM Date: 04/12/24 Loc: HO.MAMMO Attending Dr: Monica Lozano CNM Ordering Physician: Monica LozanoMResults: 2Beni gn Findings Date of Service: 04/12/24Follow Up: 1 Year From Orig inal Mammogram Procedure(s): MM tomosynthesis screening BI Accession Number(s): [id number] cc: Monica Lozano CNM; ANTHONY RUIZ NP [...] 04/17/24 1235 DD/ 1348 TD/TT: 04/12/24 1405 Char Dust Cleaner And Salvager: us [facility] External Provider IMG BI PROCEDURES Edited Result - Final * Albumin, Random Urine W/Creatinine (01/02/2024 8:44 AM EST) Creatinine, Urine 47.20 mg/dL [facility] Microalbumin Urine 7.0 mg/L [facility] Microalbum Creatinine Ratio Ur 14.8 <30 ug/mg cr [facility] Comment:Albumin/Creatinine R atio Reference Ranges: Normal: < 30 ug/mg creatinine Microalbuminuria: 30 - 300 ug/mg creatinineClinical Albuminuria: > 300 ug/mg creatinine Urine (Urine, Random) 01/02/2024 8:44 AM EST 01/02/2024 11:09 AM EST Anthony PAGE LAB URINE ORDERABLES Final Resul t Performing Organization Address City/[facility]/ZIP Co de Phone Number [facility] [address] [place] [address] [phone] * (ABNORMAL) Colonoscopy (12/27/2021) Colonoscopy Abnormal(A ) Normal Historical Provider MD HEALTH MAINTENANCE Final Result * HPV E6/E7 RFLX ALFRED 16 18/45 (05/09/2020 11:19 AM EDT) HPV mRNA E6/E7 rflx Not Detected Not Detected [facility] Comment: Methodology: Boilermaker-Mediated Amplification This assay detects E6/E7 viral messenger RNA (mRNA) from 14 high-risk HPV types (16,18,31,33,35,39,45,51,52,56,58,59,66,68). The analytical performance characteristics of this assay have been determined by [employer]. The modifications have not been cleared or approved by the FDA. This assay has been validated pursuant to the CLIA regulations and is used for clinical purposes. For additional information, please refer to http://education.Transactis/faq/PJG635l0 (This link if provided for information/ educational purposes only.) THIS TEST WAS PERFORMED AT: [employer] [address] [place] [address] [address]LO[address],[place] [address] HERNAN WARREN MD 05/09/2020 11:1 9 AM EDT [facility] HISTORICAL/NON ORDERABLE LABS Fi nal Result Performing Organization Address City/[facility]/ZIP Co de Phone Number [facility] [address] [place] [address], from Last 3 Months or Most Recently Relevant to Health Maintenance Insurance [facility] < 65 RAYMUNDO BARRERA [id number] [facility] Care Teams Director Of Catering Sales Relationship Specialty Start Date End Date Anthony Ruiz ANP [address] [place] [address] PCP - General Family Medicine 09/23/19 Yuri Pierre, Dileep [address] [place] [address] Pharmacist Internal Medicine 05/05/24 Basilio Hall MD [address] [place], [place] [phone] Cardiology 05/17/24 Ron Preciado MD [address] [place] [phone] Pulmonary Disease 05/17/24
--- OUTSIDE RECORDS SUMMARY | 2024-11-01 21:47 | XMS_ITS | Encounter Summary ---
Author Organization [employer] Address [address] [facility] 7t [place] [address] Care Team Providers Care Restaurant Area Manager Name Role Phone Sariah Vickers Primary Care Provider [phone] Yuri Pierre PharmD Unavailable [phone] Basilio Hall MD Unavailable [phone] Ron Preciado MD Unavailable [phone] Reason for Visit * Reason Comments Med Refill Encounter Details Date Type Department Care Team (Late st Contact Info) Description 08/14/2022 Refill [facility] & PEDS [address] [place] [address] Sariah Vickers ANP [address] [place] [address] Severe persistent asthma without complication Social History [...] 11/05/2024 2:30 PM EDT Office Visit [address] [address] Hallie Tapia MD [address] [place] [address] 11/12/2024 9:30 AM EDT Clinical Support [address] [address] Azeb Hall RN [address] [place] [address] 01/11/2025 1:00 PM EST Office Visit [address] [address] Sariah Vickers ANP [address] [place] [address] 02/03/2025 11:00 AM EST Medication Management [address] [address] Yuri Pierre, Dileep [address] [place] [address] documented as of this encounter Visit Diagnoses Diagnosis Severe persistent asthma without complication documented in this encounter Care Teams Restaurant Area Manager Relationship Specialty Start Date End Date Sariah Vickers ANP [address] [place] [address] PCP - General Family Medicine 09/23/19 Yuri Pierre, PharmD [address] [place] [address] Pharmacist Internal Medicine 05/05/24 Basilio Hall MD [address] [place] [address] Cardiology 05/17/24 oRn Preciado MD [address] [place] [address] Pulmonary Disease 05/17/24 documented as of this encounter
--- OUTSIDE RECORDS SUMMARY | 2024-11-01 21:47 | XMS_ITS | Encounter Summary ---
Author Organization [employer] Address [address] [facility] 7t [place] [address] Care Team Providers Care Vocational Trainer Name Role Phone Sariah Vickers Primary Care Provider [phone] Yuri Pierre PharmD Unavailable [phone] Basilio Hall MD Unavailable [phone] Ron Preciado MD Unavailable [phone] Reason for Visit * Reason Comments Med Refill Encounter Details Date Type Department Care Team (Late st Contact Info) Description 02/28/2023 Refill [facility] MED[facility]INE [address] [place] [address] Sariah Vickers ANP [address] [place] [address] Cervicalgia Social History Tobacco Use Types Packs/Day [...] 11/05/2024 2:30 PM EDT Office Visit [address] [address] Hallie Tapia MD [address] [place] [address] 11/12/2024 9:30 AM EDT Clinical Support [address] [address] Azeb Hall, RN [address] [place] [address] 01/11/2025 1:00 PM EST Office Visit [address] [address] Sariah Vickers ANP [address] [place] [address] 02/03/2025 11:00 AM EST Medication Management [address] [address] Yuri Pierre, PharmD [address] [place] [address] documented as of this encounter Goals Goal [...] Cervicalgia documented in this encounter Care Teams Vocational Trainer Relationship Specialty Start Date End Date Sariah Vickers ANP [address] [place] [address] PCP - General Family Medicine 09/23/19 Yuri Pierre, MikeD [address] [place] [address] Pharmacist Internal Medicine 05/05/24 Basilio Hall MD [address] [place] [address] Cardiology 05/17/24 Ron Preciado MD [address] [place] [address] Pulmonary Disease 05/17/24 documented as of this encounter
--- OUTSIDE RECORDS SUMMARY | 2024-11-01 21:47 | XMS_ITS | Encounter Summary ---
Author Organization [employer] Address 75 [facility] 7t [place] [address] Care Team Providers Care Fur Designer Name Role Phone Sariah Vickers Primary Care Provider [phone] Yuri Pierre PharmD Unavailable [phone] Basilio Hall MD Unavailable [phone] Ron Preciado MD Unavailable [phone] Reason for Visit * Reason Comments Med Refill Encounter Details Date Type Department Care Team (Late st Contact Info) Description 05/23/2024 Refill [facility] CH[facility] MED & PEDS [address] [place] [address] Sariah Vickers ANP [address] [place] [address] Cervicalgia Social History Tobacco Use Types Packs/Day [...] 11/05/2024 2:30 PM EDT Office Visit [address] [address] Hallie Tapia MD [address] [place] [address] 11/12/2024 9:30 AM EDT Clinical Support [address] [address] Azeb Hall RN [address] [place] [address] 01/11/2025 1:00 PM EST Office Visit [address] [address] Sariah Vickers, KAYLEE [address] [place] [address] 02/03/2025 11:00 AM EST Medication Management [address] [address] Yuri Pierre, PharmD [address] [place] [address] documented as of this encounter Goals Goal [...] documented as of this encounter Care Teams Fur Designer Relationship Specialty Start Date End Date Sariah Vickers ANP [address] [place] [address] PCP - General Family Medicine 09/23/19 Yuri Pierre PharmD [address] [place] [address] Pharmacist Internal Medicine 05/05/24 Basilio Hall MD [address] [place] [address] Cardiology 05/17/24 Ron Preciado MD [address] [place] [phone] Pulmonary Disease 05/17/24 documented as of this encounter
[2024-11-01 23:22] LABS: Bacterial Vaginosis PCR NEGATIVE (Negative); Candida Group PCR NOT DETECTED (Not Detect); Candida glab krusei PCR NOT DETECTED (Not Detect); Trichomonas vaginalis PCR NOT DETECTED (Not Detect)
== END 2024-11-01 17:47 | disposition home or self-care (01) ==
LOC: HO.HHCLNP 17:46
PROVIDERS: Visit Provider General Practice
DX: L29.2 Pruritus vulvae (principal)
CPT/HCPCS: 81515

== ENCOUNTER 2024-11-08 10:07 | Outpatient (AMB) | payer OTHER, SELFPAY ==
--- OUTSIDE RECORDS SUMMARY | 2024-11-05 14:30 | XMS_ITS | Encounter Summary ---
Author Organization [employer] Address 75 [facility] 7t [place] [address] Care Team Providers Care Parcel Wrapper Name Role Phone Sariah Vickers KAYLEE Primary Care Provider [phone] Yuri Pierre PharmD Unavailable [phone] Basilio Hall MD Unavailable [phone] Ron Preciado MD Unavailable [phone] Encounter Details Date Type Department Care Team (Late st Contact Info) Description 11/05/2024 2:30 PM EDT Office Visit [facility] [address] [place] [address] Hallie Tapia MD [address] [place] [address] Boils (Primary Dx) Social History Tobacco Use Types [...] Sign Reading Time Taken Comments Blood Pressure 130/84 11/05/2024 2:17 PM EDT Pulse 74 11/05/2024 2:17 PM EDT Temperature 37.1 C (98.7 F) 11/05/2024 2:17 PM EDT Respiratory Rate 18 11/05/2024 2:17 PM EDT Oxygen Saturation - - Inhaled Oxygen Concentration - - Weight 93.7 kg (206 lb 8 oz) 11/05/2024 2:17 PM EDT Height 160 cm (5' 3 ) 11/05/2024 2:17 PM EDT Body Mass Index 36.58 11/05/2024 2:17 PM EDT documented in this encounter Progress Notes * Hallie Tapia MD - 11/05/2024 2:30 PM EDT Subjective Patient ID: Nuvia Ho is a 64 y.o. female who presents for No chief complaint on file.. HPI 64 yr old woman with hx of abscesses in groin area, she was treated with Abx but she was told it affected her LFTs and she stopped. She was applying warm compress until they resolved, Review of Systems Constitutional: Negative for diaphoresis, fatigue and fever. HENT: Negative for ear discharge, ear pain, facial swelling and hearing loss. Respiratory: Negative for cough, choking, chest tightness and shortness of breath. Cardiovascular: Negative for chest pain and leg swelling. Gastrointestinal: Negative for abdominal distention, abdominal pain and anal bleeding. Endocrine: Negative for cold intolerance and heat intolerance. Genitourinary: Negative for enuresis, flank pain and frequency. Musculoskeletal: Negative for arthralgias, back pain and gait problem. Neurological: Negative for dizziness, facial asymmetry and headaches. Psychiatric/Behavioral: Negative for agitation, behavioral problems and confusion. Objective Physical Exam Constitutional: Appearance: Normal appearance. HENT: Head: Normocephalic and atraumatic. Nose: Nose normal. Eyes: Pupils: Pupils are equal, round, and reactive to light. Pulmonary: Effort: Pulmonary effort is normal. Musculoskeletal: General: Normal range of motion. Cervical back: Normal range of motion. Skin: Comments: No abnormalities Neurological: General: No focal deficit present. Mental Status: She is alert. Assessment/Plan Diagnoses and all orders for this visit: Boils Not active Likely due to shaving Advised to avoid using multiple blade razors Avoid hair cut too short Apply warm compress. documented in this encounter Plan of Treatment Upcoming Encounters Date Type Department Care Team (Late st Contact Info) Description 11/12/2024 9:30 AM EDT Clinical Support [facility] [address] [place] [address] Azeb Hall RN 505 [place] [address] 01/11/2025 1:00 PM EST Office Visit [facility] [address] [place] [address] Sariah Vickers ANP [address] [place] [address] 02/03/2025 11:00 AM EST Medication Management [facility] [address] [place] [address] Yuri Pierre, MikeD [address] [place] [address] documented as of this encounter Goals Goal Patient Goal Type Associated Problems Recent Progress Patient-Stated? Author Blood Pressure < 140/90 Blood Pressure 130/84(2024 2:17 PM EDT) No Piers-Gambl e, Aida, PharmD Record Your Blood Sugar As Directed General No Piers-Gambl e, Aida, PharmD Hemoglobin A1c < 7 Result Component 6.6( 1:54 PM EDT) No Piers-Gambl e, Aida, PharmD documented as of this encounter Visit Diagnoses Diagnosis Boils- Primary Carbuncle and furuncle of unspecified site documented in this encounter Additional Health Concerns Assessment Noted Time PHQ-9 Depression Total Score: 11 025 5:30 PM EDT documented as of this encounter Care Teams Parcel Wrapper Relationship Specialty Start Date End Date Sariah Vickers ANP [address] [place] [address] PCP - General Family Medicine 09/23/19 Yuri Pierre, Dileep [address] [place] [address] Pharmacist Internal Medicine 05/05/24 Basilio Hall MD [address] [place] [address] Cardiology 05/17/24 Ron Preciado MD [address] [place] [address] Pulmonary Disease 05/17/24 documented as of this encounter
--- OUTSIDE RECORDS SUMMARY | 2024-11-08 12:25 | XMS_ITS | Encounter Summary ---
Author Organization [employer] Address [address] [facility] 7t [place] [address] Care Team Providers Care [place] Aide Name Role Phone Sariah Vickers Primary Care Provider [phone] Yuri Pierre PharmD Unavailable [phone] Basilio Hall MD Unavailable [phone] Ron Preciado MD Unavailable [phone] Encounter Details Date Type Department Care Team (Late st Contact Info) Description 02/05/2022 Abstract [facility] [address] [place] [address] Sariah Vickers ANP [address] [place] [address] Social History Tobacco Use Types Packs/Day Years [...] Description 11/12/2024 9:30 AM EDT Clinical Support [address] [address] Azeb Hall RN 505 [place] [address] 01/11/2025 1:00 PM EST Office Visit [address] [address] Sariah Vickers ANP [address] [place] [address] 02/03/2025 11:00 AM EST Medication Management [address] [address] Yuri Pierre, PharmD [address] [place] [address] documented as of this encounter Visit Diagnoses Not on filedocumented in this encounter Care Teams [place] Aide Relationship Specialty Start Date End Date Sariah Vickers ANP [address] [place] [address] PCP - General Family Medicine 09/23/19 Yuri Pierre, PharmD [address] [place] [address] Pharmacist Internal Medicine 05/05/24 Basilio Hall MD [address] [place] [address] Cardiology 05/17/24 Ron Preciado MD [address] [place] [address] Pulmonary Disease 05/17/24 documented as of this encounter
--- OUTSIDE RECORDS SUMMARY | 2024-11-08 12:25 | XMS_ITS | Encounter Summary ---
Author Organization [employer] Address [address] [facility] 7t [place] [address] Care Team Providers Care Silk Screen Repairer Name Role Phone Sariah Vickers Primary Care Provider [phone] Yuri Pierre PharmD Unavailable [phone] Basilio Hall MD Unavailable [phone] Ron Preciado MD Unavailable [phone] Reason for Visit * Reason Comments Med Refill Encounter Details Date Type Department Care Team (Late st Contact Info) Description 08/22/2023 Refill [facility] [address] [place] [address] Sariah Vickers ANP [address] [place] [address] Neck pain Social History Tobacco Use Types [...] Description 11/12/2024 9:30 AM EDT Clinical Support [address] [address] Azeb Hall, MARTIN [address] [place] [address] 01/11/2025 1:00 PM EST Office Visit [address] [address] Sariah Vickers ANP [address] [place] [address] 02/03/2025 11:00 AM EST Medication Management [address] [address] Yuri Pierre, MikeD [address] [place] [address] documented as of this encounter Goals Goal Patient Goal Type Associated Problems Recent Progress Patient-Stated? Author Blood Pressure < 140/90 Blood Pressure 130/84(2024 2:17 PM EDT) No Aida Ragland PharmBear Record [...] documented as of this encounter Care Teams Silk Screen Repairer Relationship Specialty Start Date End Date Sariah Vickers ANP [address] [place] [address] PCP - General Family Medicine 09/23/19 Yuri Pierre, MikeD [address] [place] [address] Pharmacist Internal Medicine 05/05/24 Basilio Hall MD [address] [place] [address] Cardiology 05/17/24 Ron Preciado MD [address] [place] [address] Pulmonary Disease 05/17/24 documented as of this encounter
--- OUTSIDE RECORDS SUMMARY | 2024-11-08 12:25 | XMS_ITS | Encounter Summary ---
Author Organization [employer] Address 75 [facility] 7t [place] [address] Care Team Providers Care Principle Industrial Hygienist Name Role Phone Sariah Vickers Primary Care Provider [phone] Yuri Pierre PharmD Unavailable [phone] Basilio Hall MD Unavailable [phone] Ron Preciado MD Unavailable [phone] Reason for Visit * Reason Onset Date Comments Durable Medical Equipment 03/15/2022 Encounter Details Date Type Department Care Team (Late st Contact Info) Description 03/15/2022 Telephone [facility] MEDICINE [address] [place] [address] Sariah Vickers ANP [address] [place], [place] [phone] Durable Medical Equipment Social History Tobacco Use [...] Description 11/12/2024 9:30 AM EDT Clinical Support [address] [address] Azeb Hall RN 505 [place] [address] 01/11/2025 1:00 PM EST Office Visit [address] [address] Sariah Vickers ANP [address] [place] [address] 02/03/2025 11:00 AM EST Medication Management [address] [address] Yuri Pierre, PharmD [address] [place] [address] documented as of this encounter Visit Diagnoses Not on filedocumented in this encounter Care Teams Principle Industrial Hygienist Relationship Specialty Start Date End Date Sariah Vickers ANP [address] [place] [address] PCP - General Family Medicine 09/23/19 Yuri Pierre, PharmD [address] [place] [address] Pharmacist Internal Medicine 05/05/24 Basilio Hall MD [address] [place] [address] Cardiology 05/17/24 Ron Preciado MD [address] [place] [address] Pulmonary Disease 05/17/24 documented as of this encounter
--- OUTSIDE RECORDS SUMMARY | 2024-11-08 12:25 | XMS_ITS | Encounter Summary ---
Author Organization [email or web address] Address 75 [facility] 7t [place] [address] Care Team Providers Care Insulation Cupola Operator Name Role Phone Sariah Vickers Primary Care Provider [phone] Yuri Pierre PharmD Unavailable [phone] Basilio Hall MD Unavailable [phone] Ron Preciado MD Unavailable [phone] Reason for Visit * Reason Comments Med Refill Encounter Details Date Type Department Care Team (Late st Contact Info) Description 02/06/2022 Refill [facility] MEDICINE 230 [place] [address] Sariah Vickers ANP 230 [place] [address] Social History Tobacco Use Types Packs/Day Years [...] 11/12/2024 9:30 AM EDT Clinical Support [address] [address] Azeb Hall, RN 505 [place] [address] 01/11/2025 1:00 PM EST Office Visit [address] [address] Sariah Vickers ANP [address] [place] [address] 02/03/2025 11:00 AM EST Medication Management [address] [address] Yuri Pierre, PharmBear [address] [place] [address] documented as of this encounter Visit Diagnoses Not on filedocumented in this encounter Care Teams Insulation Cupola Operator Relationship Specialty Start Date End Date Sariah Vickers ANP [address] [place] [address] PCP - General Family Medicine 09/23/19 Yuri Pierre, PharmD [address] [place] [address] Pharmacist Internal Medicine 05/05/24 Basilio Hall MD 596 [place] [address] Cardiology 05/17/24 Ron Preciado MD [address] [place] [address] Pulmonary Disease 05/17/24 documented as of this encounter
--- OUTSIDE RECORDS SUMMARY | 2024-11-08 12:25 | XMS_ITS | Encounter Summary ---
Author Organization [employer] Address 75 [facility] 7t [place] [address] Care Team Providers Care Senior Network Security Architect Name Role Phone Sariah Vickers Primary Care Provider Yuri Pierre PharmD Unavailable [phone] Basilio Hall MD Unavailable [phone] Ron Preciado MD Unavailable [phone] Encounter Details Date Type Department Care Team (Latest Contact Info) Description 05/15/2018 Abstract [facility] CONVERSIONS Dental, Provider, DDS Social [...] Description 11/12/2024 9:30 AM EDT Clinical Support [address] [address] Azeb Hall RN 505 [place] [address] 01/11/2025 1:00 PM EST Office Visit [address] [address] Sariah Vickers ANP [address] [place] [address] 02/03/2025 11:00 AM EST Medication Management [address] [place] [address] Yuri Pierre, PharmD 230 [place] [address] documented as of this encounter Visit Diagnoses Not on filedocumented in this encounter Care Teams Senior Network Security Architect Relationship Specialty Start Date End Date Sariah Vickers ANP 230 [place], [place] [phone] PCP - General Family Medicine 09/23/19 Yuri Pierre, PharmD 230 [place], [place] [phone] Pharmacist Internal Medicine 05/05/24 Basilio Hall MD 596 [place] [address] Cardiology 05/17/24 Ron rPeciado MD [address] [place] [address] Pulmonary Disease 05/17/24 documented as of this encounter
--- OUTSIDE RECORDS SUMMARY | 2024-11-08 12:25 | XMS_ITS | Encounter Summary ---
Author Organization [employer] Address 75 [facility] 7t [place] [address] Care Team Providers Care Nutrition Services Associate Name Role Phone Sariah Vickers Primary Care Provider Yuri Pierre PharmD Unavailable [phone] Basilio Hall MD Unavailable [phone] Ron Preciado MD Unavailable [phone] Encounter Details Date Type Department Care Team (Late st Contact Info) Description 01/09/2022 Abstract [facility] ADULT DENTAL [address] [place] [address] Dental, Provider, DDS Social History Tobacco Use [...] Department Care Team (Late Contact Info) Description 11/12/2024 9:30 AM EDT Clinical Support [facility] MEDICINE [address] [place] [address] Azeb Hall RN 505 [place], [place] [phone] 01/11/2025 1:00 PM EST Office Visit [facility] MEDICINE [address] [place] [address] Sariah Vickers ANP 230 [place] [address] 02/03/2025 11:00 AM EST Medication Management [facility] MEDICINE 230 [place] [address] Yuri Pierre, PharmD 230 [place] [address] documented as of this encounter Procedures Procedure [...] on filedocumented in this encounter Care Teams Nutrition Services Associate Relationship Specialty Start Date End Date Sariah Vickers ANP 230 [place] [address] PCP - General Family Medicine 09/23/19 Yuri Pierre, MikeD 230 [place] [address] Pharmacist Internal Medicine 05/05/24 Basilio Hall MD 596 [place] [address] Cardiology 05/17/24 Ron Preciado MD [address] [place] [address] Pulmonary Disease 05/17/24 documented as of this encounter
--- OUTSIDE RECORDS SUMMARY | 2024-11-08 12:25 | XMS_ITS | Encounter Summary ---
Author Organization [employer] Address 75 [facility] 7t [place] [address] Care Team Providers Care Call Manager Name Role Phone Sariah Vickers Primary Care Provider [phone] Yuri Pierre PharmD Unavailable [phone] Basilio Hall MD Unavailable [phone] Ron Preciado MD Unavailable [phone] Reason for Visit * Reason Comments Med Refill Encounter Details Date Type Department Care Team (Late st Contact Info) Description 06/17/2024 Refill [facility] 230 [place] [address] Sariah Vickers ANP 230 [place], [place] [phone] Neck pain Social History Tobacco Use Types [...] Description 11/12/2024 9:30 AM EDT Clinical Support [address] [address] Azeb Hall RN 505 [place] [address] 01/11/2025 1:00 PM EST Office Visit [address] [address] Sariah Vickers ANP [address] [place] [address] 02/03/2025 11:00 AM EST Medication Management [address] [address] Yuri Pierre, MikeD [address] [place] [address] documented as of this encounter Goals Goal Patient Goal Type Associated Problems Recent Progress Patient-Stated? Author Blood Pressure < 140/90 Blood Pressure 130/84(2024 2:17 PM EDT) No Aida Ragland PharmD Record [...] documented as of this encounter Care Teams Call Manager Relationship Specialty Start Date End Date Sariah Vickers ANP 230 [place] [address] PCP - General Family Medicine 09/23/19 Yuri Pierre, MikeD 230 [place] [address] Pharmacist Internal Medicine 05/05/24 Basilio Hall MD [address] [place] [address] Cardiology 05/17/24 Ron Preciado MD [address] [place] [address] Pulmonary Disease 05/17/24 documented as of this encounter
--- OUTSIDE RECORDS SUMMARY | 2024-11-08 12:25 | XMS_ITS | Encounter Summary ---
Author Organization [employer] Address 75 [facility] 7t [place] [address] Care Team Providers Care Highway Truck Driver Name Role Phone Sariah Vickers Primary Care Provider [phone] Yuri Pierre PharmD Unavailable [phone] Basilio Hall MD Unavailable [phone] Ron Preciado MD Unavailable [phone] Reason for Visit * Reason Comments Med Refill Encounter Details Date Type Department Care Team (Late st Contact Info) Description 03/09/2024 Refill [facility] MED & PEDS [address] [place] [address] Sariah Vickers ANP 230 [place] [address] Neck pain Social History Tobacco Use Types [...] Description 11/12/2024 9:30 AM EDT Clinical Support [address] [address] Azeb Hall RN 505 [place] [address] 01/11/2025 1:00 PM EST Office Visit [address] [address] Sariah Vickers ANP [address] [place] [address] 02/03/2025 11:00 AM EST Medication Management [address] [address] Yuri Pierre, MikeD [address] [place] [address] documented as of this encounter Goals Goal Patient Goal Type Associated Problems Recent Progress Patient-Stated? Author Blood Pressure < 140/90 Blood Pressure 130/84(2024 2:17 PM EDT) No Aida Ragland PharmD Record Your Blood Sugar As Directed General No Aiad Ragland, Dileep Hemoglobin A1c < 7 Result Component 6.6( 5 1:54 PM EDT) No Aida Ragland PharmD documented as of this encounter Visit Diagnoses Diagnosis Neck pain Cervicalgia documented in this encounter Additional Health Concerns Assessment Noted Time PHQ-9 Depression Total Score: 12 024 2:58 PM EDT documented as of this encounter Care Teams Highway Truck Driver Relationship Specialty Start Date End Date Sariah Vickers ANP 230 [place] [address] PCP - General Family Medicine 09/23/19 Yuri Pierre, MikeD 230 [place] [address] Pharmacist Internal Medicine 05/05/24 Basilio Hall MD [address] [place] [address] Cardiology 05/17/24 Ron Preciado MD [address] [place] [address] Pulmonary Disease 05/17/24 documented as of this encounter
--- OUTSIDE RECORDS SUMMARY | 2024-11-08 12:25 | XMS_ITS | Encounter Summary ---
Author Organization [employer] Address [address] [place] [address] 7t [place] [address] Care Team Providers Care Associate Marketing Manager Name Role Phone Sariah Vickers Primary Care Provider [phone] Yuri Pierre PharmD Unavailable [phone] Basilio Hall MD Unavailable [phone] Ron Preciado MD Unavailable [phone] Reason for Visit * Reason Onset Date Comments Nurse Triage 11/01/2022 Encounter Details Date Type Department Care Team (Late st Contact Info) Description 11/01/2022 Telephone [facility] MEDICINE 230 [place] [address] Sariah Vickers ANP 230 [place] [address] Nurse Triage Social History Tobacco Use Types [...] 11/01/2022 3:51 PM EDT Triage call with [employer] Directional Bore Operator ID [id number] Pt reports blood sugars have been high [...] Description 11/12/2024 9:30 AM EDT Clinical Support [facility] MEDICINE [address] [place] [address] Azeb Hall RN 505 [place] [address] 01/11/2025 1:00 PM EST Office Visit [address] [address] Sariah Vickers ANP 230 [place] [address] 02/03/2025 11:00 AM EST Medication Management [facility] MEDICINE 230 [place] [address] Yuri Pierre, PharmD 230 [place] [address] documented as of this encounter Goals Goal Patient Goal Type Associated Problems Recent Progress Patient-Stated? Author Blood Pressure < 140/90 Blood Pressure 130/84(2024 2:17 PM EDT) No Aida Ragland, PharmD Record Your Blood Sugar As Directed General No Aida Ragland, PharmD Hemoglobin A1c < 7 Result Component 6.6( 1:54 PM EDT) No Aida Ragland PharmD documented as of this encounter Visit Diagnoses Not on filedocumented in this encounter Care Teams Associate Marketing Manager Relationship Specialty Start Date End Date Sariah Vickers ANP 230 [place] [address] PCP - General Family Medicine 09/23/19 Yuri Pierre, PharmD 230 [place] [address] Pharmacist Internal Medicine 05/05/24 Basilio Hall MD 596 [place] [address] Cardiology 05/17/24 Ron Preciado MD [address] [place] [address] Pulmonary Disease 05/17/24 documented as of this encounter
--- OUTSIDE RECORDS SUMMARY | 2024-11-08 12:25 | XMS_ITS | Encounter Summary ---
Author Organization [employer] Address 75 [facility] 7t [place] [address] Care Team Providers Care Therapeutic Dietitian Name Role Phone Sariah Vickers Primary Care Provider [phone] Yuri Pierre PharmD Unavailable [phone] Basilio Hall MD Unavailable [phone] Ron Preciado MD Unavailable [phone] Encounter Details Date Type Department Care Team (Latest Contact Info) Description 04/14/2020 Abstract [facility] CONVERSIONS Dental, Provider, DDS Social [...] Description 11/12/2024 9:30 AM EDT Clinical Support [address] [address] Azeb Hall RN 505 [place] [address] 01/11/2025 1:00 PM EST Office Visit [address] [address] Sariah Vickers ANP [address] [place] [address] 02/03/2025 11:00 AM EST Medication Management [facility] 230 [place] [address] Yuri Pierre, PharmD 230 [place] [address] documented as of this encounter Visit Diagnoses Not on filedocumented in this encounter Care Teams Therapeutic Dietitian Relationship Specialty Start Date End Date Sariah Vickers ANP 230 [place] [address] PCP - General Family Medicine 09/23/19 Yuri Pierre, PharmD 230 [place], [place] [phone] Pharmacist Internal Medicine 05/05/24 Basilio Hall MD 596 [place] [address] Cardiology 05/17/24 Ron Preciado MD [address] [place] [address] Pulmonary Disease 05/17/24 documented as of this encounter
--- OUTSIDE RECORDS SUMMARY | 2024-11-08 12:25 | XMS_ITS | Encounter Summary ---
Author Organization [employer] Address 75 [facility] 7t [place] [address] Care Team Providers Care Crt Name Role Phone Sariah Vickers Primary Care Provider [phone] Yuri Pierre PharmD Unavailable [phone] Basilio Hall MD Unavailable [phone] Ron Preciado MD Unavailable [phone] Reason for Visit * Reason Comments Med Refill Encounter Details Date Type Department Care Team (Late st Contact Info) Description 03/03/[address] [facility] MEDICINE 230 [place] [address] Sariah Vickers ANP 230 [place] [address] Social History Tobacco Use Types Packs/Day Years [...] Description 11/12/2024 9:30 AM EDT Clinical Support [facility] MEDICINE [address] [place] [address] Azeb Hall RN 505 [place] [address] 01/11/2025 1:00 PM EST Office Visit [address] [address] Sariah Vickers ANP [address] [place] [address] 02/03/2025 11:00 AM EST Medication Management [address] [address] Yuri Pierre, PharmBear [address] [place] [address] documented as of this encounter Visit Diagnoses Not on filedocumented in this encounter Care Teams Crt Relationship Specialty Start Date End Date Sariah Vickers ANP [address] [place] [address] PCP - General Family Medicine 09/23/19 Yuri Pierre, PharmD [address] [place] [address] Pharmacist Internal Medicine 05/05/24 Basilio Hall MD 596 [place] [address] Cardiology 05/17/24 Ron Preciado MD [address] [place], [place] [address]40 Pulmonary Disease 05/17/24 documented as of this encounter
--- OUTSIDE RECORDS SUMMARY | 2024-11-08 12:25 | XMS_ITS | Encounter Summary ---
Author Organization [employer] Address 75 [facility] 7t [place] [address] Care Team Providers Care Web Operations Specialist Name Role Phone Sariah Vickers Primary Care Provider Yuri Pierre PharmD Unavailable [phone] Basilio Hall MD Unavailable [phone] Ron Preciado MD Unavailable [phone] Reason for Visit * Reason Onset Date Comments Med Refill 02/04/2024 Encounter Details Date Type Department Care Team (Late st Contact Info) Description 02/04/2024 Telephone [facility] MEDICINE 230 [place] [address] Sariah Vickers ANP 230 [place], [place] [phone] Med Refill Social History Tobacco Use Types [...] 50 MG tablet To be sent to: [facility] [place], [place] - [address] [place] [address] documented in this encounter Plan of Treatment Upcoming Encounters Date Type Department Care Team ([facility] st Contact Info) Description 11/12/2024 9:30 AM EDT Clinical Support [address] [address] Azeb Hall RN 505 [place] [address] 01/11/2025 1:00 PM EST Office Visit [address] [address] Sariah Vickers ANP [address] [place] [address] 02/03/2025 11:00 AM EST Medication Management [address] [address] Yuri Pierre, PharmD 230 [place] [address] documented as of this encounter Goals Goal Patient Goal Type Associated Problems Recent Progress Patient-Stated? Author Blood Pressure < 140/90 Blood Pressure 130/84(2024 2:17 PM EDT) No Piers-Gambl eVeronicasa, PharmD Record Your Blood Sugar As Directed General No Piers-Gambl e Aida, PharmD Hemoglobin A1c < 7 Result Component 6.6( 1:54 PM EDT) No Piers-Gambl eVeronicasa, PharmD documented as of this encounter Visit Diagnoses Not on filedocumented in this encounter Additional Health Concerns Assessment Noted Time PHQ-9 Depression Total Score: 12 024 2:58 PM EDT documented as of this encounter Care Teams Web Operations Specialist Relationship Specialty Start Date End Date Sariah Vickers ANP 230 [place] [address] PCP - General Family Medicine 09/23/19 Yuri Pierre, PharmD 230 [place] [address] Pharmacist Internal Medicine 05/05/24 Basilio Hall MD 596 [place] [address] Cardiology 05/17/24 Ron Preciado MD [address] [place] [address] Pulmonary Disease 05/17/24 documented as of this encounter
--- OUTSIDE RECORDS SUMMARY | 2024-11-08 12:25 | XMS_ITS | Encounter Summary ---
Author Organization [employer] Address 75 [facility] 7t [place] [address] Care Team Providers Care Local Telephone Operator Name Role Phone Sariah Vickers Primary Care Provider [phone] Yuri Pierre PharmD Unavailable [phone] Basilio Hall MD Unavailable [phone] Ron Preciado MD Unavailable [phone] Encounter Details Date Type Department Care Team (Latest Contact Info) Description 06/20/2021 Abstract [facility] CONVERSIONS Dental, Provider, DDS Social [...] Description 11/12/2024 9:30 AM EDT Clinical Support [address] [address] Azeb Hall RN 505 [place] [address] 01/11/2025 1:00 PM EST Office Visit [address] [address] Sariah Vickers ANP [address] [place] [address] 02/03/2025 11:00 AM EST Medication Management [facility] 230 [place] [address] Yuri Pierre, PharmD 230 [place] [address] documented as of this encounter Visit Diagnoses Not on filedocumented in this encounter Care Teams Local Telephone Operator Relationship Specialty Start Date End Date Sariah Vickers ANP 230 [place] [address] PCP - General Family Medicine 09/23/19 Yuri Pierre, PharmD 230 [place], [place] [phone] Pharmacist Internal Medicine 05/05/24 Basilio Hall MD 596 [place] [address] Cardiology 05/17/24 Ron Preciado MD [address] [place] [address] Pulmonary Disease 05/17/24 documented as of this encounter
--- OUTSIDE RECORDS SUMMARY | 2024-11-08 12:25 | XMS_ITS | Encounter Summary ---
Author Organization [employer] Address 75 [facility] 7t [place] [address] Care Team Providers Care Gut Dropper Name Role Phone Sariah Vickers Primary Care Provider Yuri Pierre PharmD Unavailable [phone] Basilio Hall MD Unavailable [phone] Ron Preciado MD Unavailable [phone] Reason for Visit * Reason Onset Date Comments Med Refill 09/18/2023 Encounter Details Date Type Department Care Team (Late st Contact Info) Description 09/18/2023 Telephone [facility] MEDICINE 230 [place], [place] [phone] Sariah Vickers ANP 230 [place], [place] [phone] Med Refill Social History Tobacco Use Types [...] refill : Tramadol To be sent to: [facility] - [place], [place] - [address] [place] [address] documented in this encounter Plan of Treatment Upcoming Encounters Date Type Department Care Team ([facility] st Contact Info) Description 11/12/2024 9:30 AM EDT Clinical Support [address] [address] Azeb Hall RN 505 [place] [address] 01/11/2025 1:00 PM EST Office Visit [address] [address] Sariah Vickers ANP [address] [place] [address] 02/03/2025 11:00 AM EST Medication Management [address] [address] Yuri Pierre, PharmD 230 [place] [address] documented as of this encounter Goals Goal Patient Goal Type Associated Problems Recent Progress Patient-Stated? Author Blood Pressure < 140/90 Blood Pressure 130/84(2024 2:17 PM EDT) No PhanisAida Cheng PharmD Record Your Blood Sugar As Directed General No Piers-Gambl Veronica urbinasa, PharmD Hemoglobin A1c < 7 Result Component 6.6( 1:54 PM EDT) No Piers-Gambl Aida urbina PharmD documented as of this encounter Visit Diagnoses Not on filedocumented in this encounter Additional Health Concerns Assessment Noted Time PHQ-9 Depression Total Score: 2 06/23/19 24 2:10 PM EDT documented as of this encounter Care Teams Gut Dropper Relationship Specialty Start Date End Date Sariah Vickers ANP 230 [place] [address] PCP - General Family Medicine 09/23/19 Yuri Pierre, PharmD 230 [place] [address] Pharmacist Internal Medicine 05/05/24 Basilio Hall MD 596 [place] [address] Cardiology 05/17/24 Ron Preciado MD [address] [place] [address] Pulmonary Disease 05/17/24 documented as of this encounter
--- OUTSIDE RECORDS SUMMARY | 2024-11-08 12:25 | XMS_ITS | Encounter Summary ---
Author Organization [employer] Address 75 [facility] 7t [place] [address] Care Team Providers Care Nurse Research Name Role Phone Sariah Vickers Primary Care Provider [phone] Yuri Pierre PharmD Unavailable [phone] Basilio Hall MD Unavailable [phone] Ron Preciado MD Unavailable [phone] Reason for Visit * Reason Comments Med Refill Encounter Details Date Type Department Care Team (Late st Contact Info) Description 03/26/2022 Refill [facility] MEDICINE 230 [place] [address] Sariah Vickers ANP 230 [place] [address] Social History Tobacco Use Types Packs/Day Years [...] Description 11/12/2024 9:30 AM EDT Clinical Support [address] [address] Azeb Hall, RN 505 [place] [address] 01/11/2025 1:00 PM EST Office Visit [address] [address] Sariah Vickers ANP [address] [place] [address] 02/03/2025 11:00 AM EST Medication Management [address] [address] Yuri Pierre, PharmD [address] [place] [address] documented as of this encounter Visit Diagnoses Not on filedocumented in this encounter Care Teams Nurse Research Relationship Specialty Start Date End Date Sariah Vickers ANP [address] [place] [address] PCP - General Family Medicine 09/23/19 Yuri Pierre, PharmD [address] [place] [address] Pharmacist Internal Medicine 05/05/24 Basilio Hall MD 596 [place] [address] Cardiology 05/17/24 Ron Preciado MD [address] [place] [address] Pulmonary Disease 05/17/24 documented as of this encounter
--- OUTSIDE RECORDS SUMMARY | 2024-11-08 12:25 | XMS_ITS | Encounter Summary ---
Author Organization [employer] Address 75 [facility] 7t [place] [address] Care Team Providers Care Spindle Maker Name Role Phone Sariah Vickers Primary Care Provider [phone] Yuri Pierre PharmD Unavailable [phone] Basilio Hall MD Unavailable [phone] Ron Preciado MD Unavailable [phone] Reason for Visit * Reason Comments Med Refill Patient walked in [facility] pharmacy hasn't finished her Medbox due to missing refill for medication Gabapetin . Encounter Details Date Type Department Care Team (Late st Contact Info) Description 10/03/2023 Refill [facility] 230 [place], [place] [phone] Sariah Vickers ANP 230 [place], [place] [phone] Chronic SI joint pain Social History Tobacco [...] the past 12 months, has t he TV [employer], gas, oil or water [employer] threatened to shut off services in your [...] Description 11/12/2024 9:30 AM EDT Clinical Support [address] [address] Azeb Hall RN 505 [place] [address] 01/11/2025 1:00 PM EST Office Visit [address] [address] Sariah Vickers ANP 230 [place] [address] 02/03/2025 11:00 AM EST Medication Management [address] [address] Yuri Pierre, PharmD 230 [place] [address] documented as of this encounter Goals Goal [...] documented as of this encounter Care Teams Spindle Maker Relationship Specialty Start Date End Date Sariah Vickers ANP 230 [place] [address] PCP - General Family Medicine 09/23/19 Yuri Pierre, PharmD 230 [place] [address] Pharmacist Internal Medicine 05/05/24 Basilio Hall MD [address] [place] [address] Cardiology 05/17/24 Ron Preciado MD [address] [place] [address] Pulmonary Disease 05/17/24 documented as of this encounter
--- OUTSIDE RECORDS SUMMARY | 2024-11-08 12:25 | XMS_ITS | Encounter Summary ---
Author Organization [employer] Address 75 [facility] 7t [place] [address] Care Team Providers Care Continuous Still Operator Name Role Phone Sariah Vickers Primary Care Provider [phone] Yuri Pierre PharmD Unavailable [phone] Basilio Hall MD Unavailable [phone] Ron Preciado MD Unavailable [phone] Reason for Visit * Reason Comments Med Refill Encounter Details Date Type Department Care Team (Late st Contact Info) Description 10/03/2023 Refill [facility] 230 [place] [address] Sariah Vickers ANP 230 [place], [place] [phone] Chronic SI joint pain Social History Tobacco [...] Description 11/12/2024 9:30 AM EDT Clinical Support [address] [address] Azeb Hall, MARTIN 505 [place] [address] 01/11/2025 1:00 PM EST Office Visit [address] [address] Sariah Vickers ANP [address] [place] [address] 02/03/2025 11:00 AM EST Medication Management [address] [address] Yuri Pierre, MikeD [address] [place] [address] documented as of this encounter Goals Goal [...] documented as of this encounter Care Teams Continuous Still Operator Relationship Specialty Start Date End Date Sariah Vickers, KAYLEE 230 [place] [address] PCP - General Family Medicine 09/23/19 Yuri Pierre, MikeD 230 [place] [address] Pharmacist Internal Medicine 05/05/24 Basilio Hall MD [address] [place] [address] Cardiology 05/17/24 Ron Preciado MD [address] [place] [address] Pulmonary Disease 05/17/24 documented as of this encounter
--- OUTSIDE RECORDS SUMMARY | 2024-11-08 12:25 | XMS_ITS | Encounter Summary ---
Author Organization [employer] Address 75 [facility] 7t [place] [address] Care Team Providers Care Global Position System Technician Name Role Phone Sariah Vickers Primary Care Provider [phone] Yuri Pierre PharmD Unavailable [phone] Basilio Hall MD Unavailable [phone] Ron Preciado MD Unavailable [phone] Reason for Visit * Reason Comments Med Refill Encounter Details Date Type Department Care Team (Late st Contact Info) Description 09/13/2022 Refill [facility] [address] [place] [address] Sariah Vickers ANP 230 [place] [address] Severe persistent allergic asthma without complication Social [...] Description 11/12/2024 9:30 AM EDT Clinical Support [address] [address] Azeb Hall RN 505 [place] [address] 01/11/2025 1:00 PM EST Office Visit [address] [address] Sariah Vickers ANP [address] [place] [address] 02/03/2025 11:00 AM EST Medication Management [address] [address] Yuri Pierre, PharmD [address] [place] [address] documented as of this encounter Visit Diagnoses Diagnosis Severe persistent allergic asthma without complication documented in this encounter Care Teams Global Position System Technician Relationship Specialty Start Date End Date Sariah Vickers ANP [address] [place] [address] PCP - General Family Medicine 09/23/19 Yuri Pierre, PharmD [address] [place] [address] Pharmacist Internal Medicine 05/05/24 Basilio Hall MD 596 [place] [address] Cardiology 05/17/24 Ron Preciado MD [address] [place] [address] Pulmonary Disease 05/17/24 documented as of this encounter
--- OUTSIDE RECORDS SUMMARY | 2024-11-08 12:25 | XMS_ITS | Encounter Summary ---
Author Organization [employer] Address 75 [facility] 7t [place] [address] Care Team Providers Care Moss Bleacher Name Role Phone Sariah Vickers Primary Care Provider [phone] Yuri Pierre PharmD Unavailable [phone] Basilio Hall MD Unavailable [phone] Ron Preciado MD Unavailable [phone] Reason for Visit * Reason Comments Med Refill Encounter Details Date Type Department Care Team (Late st Contact Info) Description 10/03/2023 Refill [facility] 230 [place] [address] Sariah Vickers ANP 230 [place], [place] [phone] Chronic SI joint pain Social History Tobacco [...] Description 11/12/2024 9:30 AM EDT Clinical Support [address] [address] Azeb Hall, MARTIN 505 [place] [address] 01/11/2025 1:00 PM EST Office Visit [address] [address] Sariah Vickers ANP [address] [place] [address] 02/03/2025 11:00 AM EST Medication Management [address] [address] Yuri Pierre, MikeD [address] [place] [address] documented as of this encounter Goals Goal [...] documented as of this encounter Care Teams Moss Bleacher Relationship Specialty Start Date End Date Sariah Vickers, KAYLEE 230 [place] [address] PCP - General Family Medicine 09/23/19 Yuri Pierre, MikeD 230 [place] [address] Pharmacist Internal Medicine 05/05/24 Basilio Hall MD [address] [place] [address] Cardiology 05/17/24 Ron Preciado MD [address] [place] [address] Pulmonary Disease 05/17/24 documented as of this encounter
--- OUTSIDE RECORDS SUMMARY | 2024-11-08 12:26 | XMS_ITS | Encounter Summary ---
Author Organization [employer] Address 75 [facility] 7t [place] [address] Care Team Providers Care Cotton Acreage Measurer Name Role Phone Sariah Vickers KAYLEE Primary Care Provider [phone] Yuri Pierre PharmD Unavailable [phone] Basilio Hall MD Unavailable [phone] Ron Preciado MD Unavailable [phone] Reason for Visit * Reason Comments Med Refill Encounter Details Date Type Department Care Team (Late st Contact Info) Description 10/04/2024 Refill [facility] [address] [place] [address] Zakia Uriostegui, SLEEP TECH 230 [place] [address] Type 2 diabetes mellitus with hyperglycemia (CMS/HCC) [...] Description 11/12/2024 9:30 AM EDT Clinical Support [facility] MEDICINE [address] [place] [address] Azeb Hlal, RN 505 [place] [address] 01/11/2025 1:00 PM EST Office Visit [facility] MEDICINE [address] [place] [address] Sariah Vickers, ANP [address] [place] [address] 02/03/2025 11:00 AM EST Medication Management [address] [address] Yuri Pierre, PharmD [address] [place] [address] documented as of this encounter Goals Goal [...] as of this encounter Care Teams Cotton Acreage Measurer Relationship Specialty Start Date End Date Sariah Vickers ANP 230 [place] [address] PCP - General Family Medicine 09/23/19 Yuri Pierre PharmD 230 [place] [address] Pharmacist Internal Medicine 05/05/24 Basilio Hall MD 596 [place] [address] Cardiology 05/17/24 Ron Preciado MD [address] [place] [address] Pulmonary Disease 05/17/24 documented as of this encounter
--- OUTSIDE RECORDS SUMMARY | 2024-11-08 12:26 | XMS_ITS | Encounter Summary ---
Author Organization [employer] Address 75 [facility] 7t [place] [address] Care Team Providers Care Applications Packager Name Role Phone Sariah Vickers Primary Care Provider [phone] Yuri Pierre PharmD Unavailable [phone] Basilio Hall MD Unavailable [phone] Ron Preciado MD Unavailable [phone] Reason for Visit * Reason Comments Med Refill Encounter Details Date Type Department Care Team (Late st Contact Info) Description 01/04/2024 Refill [facility] MED [facility] [address] [place] [address] Sariah Vickers ANP 230 [place] [address] Cervicalgia Social History Tobacco Use Types Packs/Day [...] Description 11/12/2024 9:30 AM EDT Clinical Support [address] [address] Azeb Hall RN 505 [place] [address] 01/11/2025 1:00 PM EST Office Visit [address] [address] Sariah Vickers ANP [address] [place] [address] 02/03/2025 11:00 AM EST Medication Management [address] [address] Yuri Pierre, MikeD [address] [place] [address] documented as of this encounter Goals Goal [...] documented as of this encounter Care Teams Applications Packager Relationship Specialty Start Date End Date Sariah Vickers ANP 230 [place] [address] PCP - General Family Medicine 09/23/19 Yuri Pierre, MikeD [address] [place] [address] Pharmacist Internal Medicine 05/05/24 Basilio Hall MD 596 [place] [address] Cardiology 05/17/24 Ron Preciado MD [address] [place] [address] Pulmonary Disease 05/17/24 documented as of this encounter
--- OUTSIDE RECORDS SUMMARY | 2024-11-08 12:26 | XMS_ITS | Encounter Summary ---
Author Organization [employer] Address 75 [facility] 7t [place] [address] Care Team Providers Care Supervisor Hot Dip Tinning Name Role Phone Sariah Vickers Primary Care Provider [phone] Yuri Pierre PharmD Unavailable [phone] Basilio Hall MD Unavailable [phone] Ron Preciado MD Unavailable [phone] Encounter Details Date Type Department Care Team (Late st Contact Info) Description 10/20/2024 Results Follow-Up [facility] MEDICINE 230 [place] [address] Sariah Vickers ANP 230 [place] [address] Prothrombin Time-INR, C-reactive Protein, Amylase, Additional followed-up [...] Description 11/12/2024 9:30 AM EDT Clinical Support [address] [address] Azeb Hall RN 505 [place] [address] 01/11/2025 1:00 PM EST Office Visit [address] [address] Sariah Vickers ANP [address] [place] [address] 02/03/2025 11:00 AM EST Medication Management [address] [address] Yuri Pierre, PharmD 230 [place] [address] documented as of this encounter Goals Goal Patient Goal Type Associated Problems Recent Progress Patient-Stated? Author Blood Pressure < 140/90 Blood Pressure 130/84(2024 2:17 PM EDT) No Phanis-Gambl Aida urbina, PharmD [...] as of this encounter Care Teams Supervisor Hot Dip Tinning Relationship Specialty Start Date End Date Sariah Vickers ANP 230 [place] [address] PCP - General Family Medicine 09/23/19 Yuri Pierre, PharmD 230 [place] [address] Pharmacist Internal Medicine 05/05/24 Basilio Hall MD [address] [place] [address] Cardiology 05/17/24 Ron Preciado MD [address] [place] [address] Pulmonary Disease 05/17/24 documented as of this encounter
--- OUTSIDE RECORDS SUMMARY | 2024-11-08 12:26 | XMS_ITS | Encounter Summary ---
Author Organization [employer] Address 75 [facility] 7t [place] [address] Care Team Providers Care Heel Lift Gouger Name Role Phone Sariah Vickers Primary Care Provider [phone] Yuri Pierre PharmD Unavailable [phone] Basilio Hall MD Unavailable [phone] Ron Preciado MD Unavailable [phone] Reason for Visit * Reason Onset Date Comments Results 11/03/2024 Encounter Details Date Type Department Care Team (Late st Contact Info) Description 11/03/2024 Telephone [facility] 230 [place], [place] [phone] Sariah Vickers ANP 230 [place], [place] [phone] Results Social History Tobacco Use Types Packs/Day Years [...] encounter Miscellaneous Notes * Telephone Encounter - Joesph Castelan RN - 11/03/2024 2:55 PM EDT TC placed to patient [phone] using [facility] #ID [id number] regarding below message. RN informed patient of her vaginal swab results which are negative. Patient denies any vaginal bleeding at this oj. RNinformed patient that the provider placed an referral to INSURANCE WRITER for further evaluation. PT verbalized understanding. PT to F/U PRN. ----- Message from Reta Sue MD sent at 11/03/2024 1:01 PM EDT ----- Please let patient know that her infectious testing was negative. Has she had any reoccurrence of bleeding? Unit Director said to send the referral for repeat exam, so that is what I did documented in this encounter Plan of Treatment Upcoming Encounters Date Type Department Care Team (Late st Contact Info) Description 11/12/2024 9:30 AM EDT Clinical Support [facility] MED[facility] [address] [place] [address] Azeb Hall RN 505 [place] [address] 01/11/2025 1:00 PM EST Office Visit [address] [address] Sariah Vickers ANP [address] [place] [address] 02/03/2025 11:00 AM EST Medication Management [address] [address] Yuri Pierre, Dileep [address] [place] [address] documented as of this encounter Goals Goal [...] as of this encounter Care Teams Heel Lift Gouger Relationship Specialty Start Date End Date Sariah Vickers ANP [address] [place] [address] PCP - General Family Medicine 09/23/19 Yuri Pierre, PharmD [address] [place] [address] Pharmacist Internal Medicine 05/05/24 Basilio Hall MD 596 [place] [address] Cardiology 05/17/24 Ron Preciado MD [address] [place] [address] Pulmonary Disease 05/17/24 documented as of this encounter
--- OUTSIDE RECORDS SUMMARY | 2024-11-08 12:26 | XMS_ITS | Encounter Summary ---
Author Organization [employer] Address 75 [facility] 7t [place] [address] Care Team Providers Care Offset Press Operator Helper Name Role Phone Sariah Vickers Primary Care Provider [phone] Yuri Pierre PharmD Unavailable [phone] Basilio Hall MD Unavailable [phone] Ron Preciado MD Unavailable [phone] Reason for Visit * Reason Comments Med Refill Pt wants to know if she can keep taking prednis Encounter Details Date Type Department Care Team (Late st Contact Info) Description 06/26/2024 Refill [facility] MED [facility] PEDS [address] [place] [address] Sariah Vickers ANP 230 [place] [address] Cervicalgia Social History Tobacco Use Types Packs/Day [...] 11/12/2024 9:30 AM EDT Clinical Support [facility] MED[facility]INE [address] [place] [address] Azeb Hall, MATRIN 505 [place] [address] 01/11/2025 1:00 PM EST Office Visit [facility] MED[facility]INE [address] [place] [address] Sariah Vickers ANP [address] [place] [address] 02/03/2025 11:00 AM EST Medication Management [facility] MED[facility] [address] [place] [address] Yuri Pierre, MikeD [address] [place] [address] documented as of this encounter Goals Goal [...] documented as of this encounter Care Teams Offset Press Operator Helper Relationship Specialty Start Date End Date Sariah Vickers, KAYLEE 230 [place] [address] PCP - General Family Medicine 09/23/19 Yuri Pierre, MikeD [address] [place] [address] Pharmacist Internal Medicine 05/05/24 Basilio Hall MD [address] [place] [address] Cardiology 05/17/24 Ron Preciado MD [address] [place] [address] Pulmonary Disease 05/17/24 documented as of this encounter
--- OUTSIDE RECORDS SUMMARY | 2024-11-08 12:26 | XMS_ITS | Encounter Summary ---
Author Organization [employer] Address 75 [facility] 7t [place] [address] Care Team Providers Care College Service Officer Name Role Phone Sariah Vickers Primary Care Provider [phone] Yuri Pierre PharmD Unavailable [phone] Basilio Hall MD Unavailable [phone] Ron Preciado MD Unavailable [phone] Reason for Visit * Reason Onset Date Comments Referral 08/02/2024 Encounter Details Date Type Department Care Team (Late st Contact Info) Description 08/02/2024 Telephone [facility] MEDICINE 230 [place], [place] [phone] Sariah Vickers ANP 230 [place], [place] [phone] Referral Social History Tobacco Use Types Packs/Day [...] for vertigo therapy. Please contact pt at [phone]. (Kiswahili Speaker) documented in this encounter Plan of Treatment Upcoming Encounters Date Type Department Care Team (Late st Contact Info) Description 11/12/2024 9:30 AM EDT Clinical Support [facility] MEDICINE [address] [place] [address] Azeb Hall RN 505 [place] [address] 01/11/2025 1:00 PM EST Office Visit [address] [address] Sariah Vickers ANP 230 [place] [address] 02/03/2025 11:00 AM EST Medication Management [facility] MEDICINE 230 [place] [address] Yuri Pierre, Dileep 230 [place] [address] documented as of this encounter Goals Goal [...] documented as of this encounter Care Teams College Service Officer Relationship Specialty Start Date End Date Sariah Vickers ANP [address] [place] [address] PCP - General Family Medicine 09/23/19 Yuri Pierre, PharmD [address] [place] [address] Pharmacist Internal Medicine 05/05/24 Basilio Hall MD 5[address] [place] [address] Cardiology 05/17/24 Ron Preciado MD [address] [place] [address] Pulmonary Disease 05/17/24 documented as of this encounter
--- OUTSIDE RECORDS SUMMARY | 2024-11-08 12:26 | XMS_ITS | Encounter Summary ---
Author Organization [employer] Address 75 [facility] 7t [place] [address] Care Team Providers Care Java Support Engineer Name Role Phone Sariah Vickers Primary Care Provider [phone] Yuri Pierre PharmD Unavailable [phone] Basilio Hall MD Unavailable [phone] Ron Preciado MD Unavailable [phone] Reason for Visit * Reason Onset Date Comments Med Refill 01/09/2024 Encounter Details Date Type Department Care Team (Late st Contact Info) Description 01/09/2024 Telephone [facility] MEDICINE 230 [place] [address] Sariah Vickers ANP 230 [place], [place] [phone] Med Refill Social History Tobacco Use Types [...] Description 11/12/2024 9:30 AM EDT Clinical Support [facility] MEDICINE [address] [place] [address] Azeb Hall RN 505 [place] [address] 01/11/2025 1:00 PM EST Office Visit [address] [address] Sariah Vickers ANP [address] [place] [address] 02/03/2025 11:00 AM EST Medication Management [address] [address] Yuri Pierre, MikeD [address] [place] [address] documented as of this encounter Goals Goal [...] documented as of this encounter Care Teams Java Support Engineer Relationship Specialty Start Date End Date Sariah Vickers, ANP 230 [place] [address] PCP - General Family Medicine 09/23/19 Yuri Pierre, MikeD [address] [place] [address] Pharmacist Internal Medicine 05/05/24 Basilio Hall MD [address] [place] [address] Cardiology 05/17/24 Ron Preciado MD [address] [place] [address] Pulmonary Disease 05/17/24 documented as of this encounter
--- OUTSIDE RECORDS SUMMARY | 2024-11-08 12:26 | XMS_ITS | Encounter Summary ---
Author Organization [employer] Address 75 [facility] 7t [place] [address] Care Team Providers Care Junior Systems Analyst Name Role Phone Sariah Vickers Primary Care Provider [phone] Yuri Pierre PharmD Unavailable [phone] Basilio Hall MD Unavailable [phone] Ron Preciado MD Unavailable [phone] Reason for Visit * Reason Comments Med Refill Encounter Details Date Type Department Care Team (Late st Contact Info) Description 12/17/2023 Refill [facility] MEDICINE 230 [place] [address] Sariah Vickers ANP 230 [place] [address] Chronic SI joint pain Social History Tobacco [...] Description 11/12/2024 9:30 AM EDT Clinical Support [address] [address] Azeb Hall RN 505 [place] [address] 01/11/2025 1:00 PM EST Office Visit [address] [address] Sariah Vickers ANP [address] [place] [address] 02/03/2025 11:00 AM EST Medication Management [address] [address] Yuri Pierre, MikeD [address] [place] [address] documented as of this encounter Goals Goal [...] documented as of this encounter Care Teams Junior Systems Analyst Relationship Specialty Start Date End Date Sariah Vickers ANP 230 [place] [address] PCP - General Family Medicine 09/23/19 Yuri Pierre, MikeD [address] [place] [address] Pharmacist Internal Medicine 05/05/24 Basilio Hall MD [address] [place] [address] Cardiology 05/17/24 Ron Preciado MD [address] [place] [address] Pulmonary Disease 05/17/24 documented as of this encounter
--- OUTSIDE RECORDS SUMMARY | 2024-11-08 12:26 | XMS_ITS | Encounter Summary ---
Author Organization [employer] Address 75 [facility] 7t [place] [address] Care Team Providers Care Buffing Wheel Presser Name Role Phone Sariah Vickers Primary Care Provider [phone] Yuri Pierre PharmD Unavailable [phone] Basilio Hall MD Unavailable [phone] Ron Preciado MD Unavailable [phone] Reason for Visit * Reason Comments Med Refill Encounter Details Date Type Department Care Team (Late st Contact Info) Description 12/27/2022 Refill [facility] MEDICINE 230 [place] [address] Sariah Vickers ANP 230 [place] [address] Neck pain Social History Tobacco Use Types [...] Description 11/12/2024 9:30 AM EDT Clinical Support [address] [address] Azeb Hall, MARTIN 505 [place] [address] 01/11/2025 1:00 PM EST Office Visit [facility] MEDICINE [address] [place] [address] Sariah Vickers ANP [address] [place] [address] 02/03/2025 11:00 AM EST Medication Management [address] [address] Yuri Pierre, MikeD [address] [place] [address] documented as of this encounter Goals Goal [...] Cervicalgia documented in this encounter Care Teams Buffing Wheel Presser Relationship Specialty Start Date End Date Sariah Vickers ANP 230 [place] [address] PCP - General Family Medicine 09/23/19 Yuri Pierre, MikeD 230 [place] [address] Pharmacist Internal Medicine 05/05/24 Basilio Hall MD [address] [place], [place] 5028940 Cardiology 05/17/24 Ron Preciado MD [address] [place] [address] Pulmonary Disease 05/17/24 documented as of this encounter
--- OUTSIDE RECORDS SUMMARY | 2024-11-08 12:26 | XMS_ITS | Encounter Summary ---
Author Organization [employer] Address [address] [facility] [address] [place] [address] Care Team Providers Care Samples And Repairs Preparer Name Role Phone Sariah Vickers Primary Care Provider [phone] Yuri Pierre PharmD Unavailable [phone] Basilio Hall MD Unavailable [phone] Ron Preciado MD Unavailable [phone] Reason for Visit * Reason Comments Med Refill Encounter Details Date Type Department Care Team (Late st Contact Info) Description 12/19/2022 Refill [facility] [address] [place] [address] Sariah Vickers ANP [address] [place] [address] Vertigo Social History Tobacco Use Types Packs/Day [...] Description 11/12/2024 9:30 AM EDT Clinical Support [address] [address] Azeb Hall, MARTIN [address] [place] [address] 01/11/2025 1:00 PM EST Office Visit [facility] [address] [place] [phone] Sariah Vickers ANP [address] [place] [address] 02/03/2025 11:00 AM EST Medication Management [address] [address] Yuri Pierre, MikeD [address] [place] [address] documented as of this encounter Goals Goal [...] giddiness documented in this encounter Care Teams Samples And Repairs Preparer Relationship Specialty Start Date End Date Sariah Vicekrs ANP [address] [place] [address] PCP - General Family Medicine 09/23/19 Yuri Pierre, MikeD [address] [place] [address] Pharmacist Internal Medicine 05/05/24 Basilio Hall MD [address] [place] [address] [phone] Cardiology 05/17/24 Ron Preciado MD [address] [place] [address] Pulmonary Disease 05/17/24 documented as of this encounter
--- OUTSIDE RECORDS SUMMARY | 2024-11-08 12:26 | XMS_ITS | Encounter Summary ---
Author Organization [facility] Address [address] [facility] [address]t [place] [address] Care Team Providers Care Recycling Specialist Name Role Phone Anthony Ruiz Primary Care Provider [phone] Yuri Pierre PharmD Unavailable [phone] Basilio Hall MD Unavailable [phone] Ron Preciado MD Unavailable [phone] Encounter Details Date Type Department Care Team (Late st Contact Info) Description 09/28/2024 Orders Only [facility] [address] [place] [address] Anthony Ruiz ANP [address] [place] [address] Social History Tobacco Use Types Packs/Day Years [...] 11/12/2024 9:30 AM EDT Clinical Support [address] [address] Azeb Hall, RN [address] [place] [address] 01/11/2025 1:00 PM EST Office Visit [address] [address] Anthony Ruiz ANP [address] [place] [address] 02/03/2025 11:00 AM EST Medication Management [address] [address] Yuri Pierre, PharmD [address] [place] [address] documented as of this encounter Goals Goal [...] EDT Narrative 10/09/2024 1:20 PM EDT [address] [address] [address] Scan Report Signed Patient: Nuvia Fay MR #: [id number] : [id number] Acct:[id number] Age/Sex: 64 / F ADM Date: 10/08/24 Loc: HO.CT Attending Dr: Ron Preciado MD Ordering Physician: Ron Preciado MD Date of Service: 10/08/24 Procedure(s): CT lung screening Accession Number(s): [id number] cc: Ron Preciado MD; ANTHONY RUIZ NP Report Number: [id number]: Total DLP = 64.00 mGy-cm CLINICAL HISTORY: [...] 10/09/24 1319 DD/ 1318 TD/TT: 10/09/24 1318 Associate Trainer: Procedure Note Donotuseinterpreter, Image - 10/09/[address] [place] [address] [address] Scan Report Signed Patient: Nuvia Fay EMR #: [id number] : [id number]:[id number] Age/Sex: 64 / FADM Date: 10/08/24 Loc: .CT Attending Dr: Ron Preciado MD Ordering Physician: Ron Preciado MD Date of Service: 10/08/24 Procedure(s): CT lung screening Accession Number(s): [id number] cc: Ron Preciado MD; ANTHONY RUIZ NP Report Number: [id number]: Total DLP = 64.00 mGy-cm CLINICAL HISTORY: [...] 10/09/24 1319 DD/ 1318 TD/TT: 10/09/24 1318 Associate Trainer: [facility] External Provider IMG CT PROCEDURES Edited Result - Final documented in this encounter Visit Diagnoses Not on filedocumented in this encounter Additional Health Concerns Assessment Noted Time PHQ-9 Depression Total Score: 12 024 2:58 PM EDT documented as of this encounter Care Teams Recycling Specialist Relationship Specialty Start Date End Date Anthony Ruiz ANP [address] [place] [address] PCP - General Family Medicine 09/23/19 Yuri Pierre, MikeD [address] [place] [address] Pharmacist Internal Medicine 05/05/24 Basilio Hall MD [address] [place] [address] Cardiology 05/17/24 Ron Preciado MD [address] [place] [address] Pulmonary Disease 05/17/24 documented as of this encounter
--- OUTSIDE RECORDS SUMMARY | 2024-11-08 12:26 | XMS_ITS | Clinical Summary ---
Author Organization [address] [facility] Address [address] [place] [address] Phone Care Team Providers Care Instrument Engineer Name Role Phone Sariah Vickers NP Primary Care Provider [phone] Social History Tobacco Use Types Packs/Day Years [...] age to complete this topic Care Teams Instrument Engineer Relationship Specialty Start Date End Date Sariah Vickers NP [address] [place] [phone] PCP - General 12/03/23
--- OUTSIDE RECORDS SUMMARY | 2024-11-08 12:26 | XMS_ITS | Clinical Summary ---
Author Organization [employer] Address [address] [facility] [address] [place] [address] Care Team Providers Care Bit Shaver Name Role Phone Anthony Ruiz KAYLEE Primary Care Provider [phone] Yuri Pierre PharmD Unavailable [phone] Basilio Hall MD Unavailable [phone] Ron Preciado MD Unavailable [phone] Allergies Active Allergy Reactions Criticality Noted [...] mouth in the morning. Active Lactobacillus-In ulin ([facility]) capsule 023 Active Xolair 150 [...] Type 2 diabetes mellitus with hyperlipidemia (CMS/HCC) ([facility]) USE DIRECTED THREE TIMES DAILY 100 [...] 90 tablet 4 025 Active Continuous Glucose Training [employer] Manager (FreeStyle Jalil 3 Rodney) device 1 each Once per day. Use [...] pen-injectorIndi cations:Type 2 diabetes mellitus with hyperlipidemia ([facility]/HCC) ([facility]) Inject 0.5 mg under the skin 1 (one) time per week. 1 each 025 Active insulin lispro (HumaLOG KWIKPEN) 100 UNIT/ML injectionIndicat ions:Type 2 diabetes mellitus with hyperlipidemia (CMS/HCC) ([facility]) Take 4-6 units as needed if [...] neuropathy, with long-term current use of insulin ([facility]) Administer 3 mg into affected nostril(s) [...] miscIndications: Type 2 diabetes mellitus with hyperglycemia ([facility]) TEST BLOOD SUGAR FOUR TIMES DAILY [...] 6 HOURS NEEDED 120 tablet 025 Active potassium chloride CR (Klor-Con M20) 20 MEQ ER tablet TAKE 1 TABLET BY MOUTH TWICE DAILY IN THE MORNING AND IN THE EVENING 180 tablet 1 025 2024 Discontinued(R eokristan (will not trigger notification to Pharmacy)) ipratropium-albu terol (Duo-Neb) 0.5-2.5 mg/3 mL nebulizer solutionIndicati ons:Severe persistent asthma without complication INHALE 1 AMPULE USING A NEBULIZER EVERY 6 HOURS NEEDED 90 mL 5 025 2024 Discontinued fluticasone (Flonase) 50 MCG/ACT nasal spray INSTILL 2 SPRAYS IN EACH NOSTRIL ONCE DAILY IN THE MORNING 16 g 3 025 2024 Discontinued acetaminophen (Tylenol) 325 MG tabletIndication s:Neck pain TAKE 1 TO 2 TABLETS BY MOUTH EVERY 6 HOURS NEEDED 120 tablet 025 2024 Discontinued traMADol (Ultram) 50 MG tabletIndication s:Cervicalgia TAKE 1 TABLET BY MOUTH TWICE DAILY IN THE MORNING AND AT BEDTIME NEEDED FOR SEVERE PAIN 60 tablet 025 2024 Discontinued levoFLOXacin (Levaquin) 750 MG tablet Take 1 tablet by mouth Once per day. 025 2024 Discontinued(T herapy completed) predniSONE (Deltasone) 20 MG tablet Take 2 tablets by mouth Once per day. 025 2024 Discontinued(T herapy completed) Active Problems Problem Noted Date Diagnosed Date Vaginal bleeding 11/03/2024 Assessment & Plan (11/03/2024 12:59 PM EDT): Post menopausal bleeding in patient s/p hysterectomy X 1 episode On exam, source of bleeding most likely ectactic enlarged blood vessel of inner L labia Continue to monitor Apply Vaseline to area twice daily to seal bleeding vessel Will refer to nurse staff community health for followup if needed Return precautions for repeat or heavy bleeding, vaginal/pelvic pain Chest discomfort 06/09/2024 Assessment & Plan (06/09/2024 [...] further I&D Take tylenol prn pain/fever/ Abnormal ultrasound of kidney 02/13/2024 Cellulitis of [...] 02/13/2024 Kidney stone on left side 02/13/2024 Moderate episode of recurrent major depressive [...] She is currently connected with services through [facility]. Pt needing additional support due to her [...] her family. She will continue services with [facility] for OP therapy and psychiatry services. clinician will be available if needed during next medical appointment. PLAN: (check all that apply) Continue with current services (defined as services in the past 12 months) . Pt is engaged with OP therapy and psychiatry services with [facility] @ [facility] Excessive attrition of teeth, generalized 2023 Right [...] constipation 07/31/2022 Chronic SI joint pain 07/31/2022 Ectatic aorta 07/31/2022 Overview (05/17/2024): Abdominal [...] cholesterol 07/31/2022 Hypothyroidism 07/31/2022 Menopausal state 07/31/2022 OKEEEF (nonalcoholic steatohepatitis) 07/31/2022 Non-toxic multinodular goiter 07/31/2022 Osteoarthritis of knees, bilateral 07/31/2022 Patellofemoral arthritis of left knee 07/31/2022 Plantar fasciitis 07/31/2022 Severe persistent allergic asthma 07/31/2022 Former smoker 07/31/2022 Spondylosis of lumbar region without myelopathy or radiculopathy 07/31/2022 Trochanteric bursitis of right hip 07/31/2022 Tubular adenoma of colon 07/31/2022 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 She will continue services with [facility] for OP therapy and psychiatry services. clinician will be available if needed during next medical appointment. PLAN: (check all that apply) Continue with current services (defined as services in the past 12 months) . Pt is engaged with OP therapy and psychiatry services with Ty @ [facility] Fibromyalgia 07/31/2022 Asthma-COPD overlap syndrome 07/31/2022 Right [...] for possible plantar fasciitis -referred today to [facility] [employer] x ongoing discomfort -may need orthopedic shoes [...] Plan (06/09/2024 1:53 PM EDT): Counseling done, Ty was call Assessment & Plan (07/30/2023 12:52 [...] individual therapy and psychiatry with N at [facility]. Sees psych provider every two months and [...] Problem Noted Date Diagnosed Date Resolved Date Diabetic hypoglycemia 06/21/20242024 Assessment & Plan (06/21/2024 6:24 PM EDT): Extensive counseling about small frequent meals high in protein and vegetables to avoid hypoglycemia done today After extensive discussion patient decided to switch her Ozempic to Trulicity for this reason I discontinue her Ozempic and I put her on Trulicity and I advised to follow-up with PCP and pharmacy CDTM Abnormal finding on ultrasound 02/13/2024 11/03/2024 Type 2 diabetes mellitus 02/13/2024 COVID-19 10/08/2023 11/01/2024 Assessment & Plan (10/08/2023 [...] 07/31/2022 10/30/19 23 Oral candidiasis 07/31/2022 10/29/2022 History of COVID-19 07/31/2022 11/04/19 25 Cubital tunnel syndrome on right 07/31/2022 10/29/2022 MOCK (dyspnea on exertion) 07/31/2022 Dry mouth 07/31/2022 10/29/2022 NIDDY (non-insulin dependent diabetes mellitus in young) 07/31/2022 10/29/2022 Preop pulmonary/respiratory exam 07/31/2022 10/29/2022 Type 2 diabetes mellitus with hyperglycemia 07/31/2022 10/29/2022 UTI (urinary tract infection) 07/31/2022 10/29/2022 Vulvovaginitis 07/31/2022 10/29/2022 Weakness 07/31/2022 11/03/2024 Yeast infection 07/31/2022 10/29/2022 Acute asthma exacerbation [...] using Aspart inulin ac meals Nausea 07/31/2022 11/03/2024 GERD (gastroesophageal reflux disease) 07/31/2022 10/29/2022 Bronchitis [...] organization. Date Type Department Care Team Description 11/05/2024 2:30 PM EDT Office Visit [facility] [address] [place] [phone] Hallie Tapia MD Bocalvin (Primary Dx) 11/05/2024 Travel 11/03/2024 Telephone [facility] [address] [place] [address] Anthony Ruiz, ANP Results 11/01/2024 2:45 PM EDT Office Visit [facility] [address] [place] [phone] Reta Sue MD Vaginal bleeding (Primary Dx); Dietary counseling; Exercise counseling; Class 2 obesity without serious comorbidity with body mass index (BMI) of 35.0 to 35.9 in adult, unspecified obesity type; Vulvar itching; Constipation, unspecified constipation type; Hemorrhoids, unspecified hemorrhoid type 11/01/2024 Travel 10/29/2024 Refill [facility] [address] [place] [address] Anthony Ruiz ANP Neck pain 10/26/2024 Results Follow-Up [facility] [address] [place] [phone] Anthony Ruiz ANP Thyroid Peroxidase Antibodies, Cardiolipin Antibodies (IgA,IgG,IgM) 10/25/2024 Refill [facility] [address] [place] [address] Anthony Ruiz ANP 10/23/[address] [address] Anthony Ruiz ANP 10/22/2024 Orders Only GENERIC EXTERNAL DATA DEPARTMENT Provider, Generic External Data 10/20/2024 Results Follow-Up [address] [address] Anthony Ruiz ANP Prothrombin Time-INR, C-reactive Protein, Amylase, Additional followed-up results: 7 10/19/2024 Refill [facility] [address] [place] [address] Anthony Ruiz ANP Cervicalgia 10/14/2024 1:30 PM EDT Office Visit [facility] [address] [place] [address] Anthony Ruiz ANP Type 2 diabetes mellitus with hyperlipidemia (CMS/HCC) (CMS/HCC) (Primary Dx); Chronic pain of both knees; Chronic SI joint pain; Primary osteoarthritis of both knees; Essential hypertension; Long-term current use of opiate analgesic; OKEEFE (nonalcoholic steatohepatitis); Asthma-COPD overlap syndrome (CMS/HCC) 10/14/2024 Travel 10/13/2024 10:40 AM EDT Office Visit [facility] [address] [place] [address] Chava Presley MD Essential hypertension (Primary Dx) 10/13/2024 Travel 10/12/2024 Orders Only GENERIC EXTERNAL DATA DEPARTMENT Provider, Generic External Data 10/09/2024 Refill [facility] [address] [place] [address] Anthony Ruiz ANP Severe persistent asthma without complication 10/06/2024 Travel 10/04/2024 Refill [facility] [address] [place] [address] Zakia Uriostegui NP Type 2 diabetes mellitus with hyperglycemia (CMS/HCC) 10/01/2024 11:00 AM EDT Clinical Support [facility] [address] [place] [address] Azeb Hall, RN Neck pain 10/01/2024 Telephone [facility] [address] [place] [address] Azeb Hall RN 10/01/2024 Travel 09/30/2024 Telephone [facility] [address] [place] [address] Anthony Ruiz ANP Referral 09/30/2024 Telephone [facility] [address] [place] [address] Anthony Ruiz ANP Referral 09/30/2024 Refill [facility] [address] [place] [address] Anthony Ruiz ANP Chronic SI joint pain 09/28/2024 Orders Only [facility] [address] [place] [address] Anthony Ruiz ANP 09/25/2024 Refill [facility] [address] [place] [address] Anthony Ruiz ANP Chronic SI joint pain; Essential hypertension; Severe persistent asthma without complication 09/24/2024 2:00 PM EDT Office Visit [facility] [address] [place] [address] Luisa Martinez, OD Diabetes type 2, no ocular involvement ([facility]/HCC) (Primary Dx); Mixed type age-related cataract, both eyes; Lesion of left lower eyelid; Presbyopia 09/24/2024 Travel 09/19/2024 Refill [facility] [address] [place] [address] Debra Faye MD Cervicalgia 09/16/2024 Refill [facility] [address] [place] [address] Zakia Uriostegui NP Type 2 diabetes mellitus with hyperglycemia ([facility]); Neck pain 09/03/2024 Telephone [facility] [address] [place] [address] Anthony Ruiz ANP Appointment Request 09/02/2024 Telephone [facility] [address] [place] [address] Anthony Ruiz ANP Durable Medical Equipment 08/26/[address] [address] Anthony Ruiz ANP Durable Medical Equipment 08/23/2024 Refill [facility] [address] [place] [address] Anthony Ruiz ANP Type 2 diabetes mellitus with hyperglycemia ([facility]/HCC) 08/21/2024 Refill [facility] [address] [place] [address] Anthony Ruiz ANP Cervicalgia; Chronic bilateral low back pain, unspecified whether sciatica present 08/20/2024 Refill [facility] [address] [place] [address] Anthony Ruiz ANP Chronic bilateral low back pain, unspecified whether sciatica present 08/19/2024 9:00 AM EDT Office Visit [facility] [address] [place] [address] Ramon Damon MD Viral URI with cough 08/16/2024 Refill [facility] [address] [place] [address] Debra Faye MD Neck pain 08/13/2024 Orders Only [facility] [address] [place] [phone] Leora Hoffman RN 08/11/2024 4:00 PM EDT Office Visit [facility] [address] [place] [phone] Brittney Nava MD Constipation, unspecified constipation type (Primary Dx) 08/11/2024 Travel 08/10/2024 Telephone [facility] [address] [place] [address] Anthony Ruiz ANP Prior Authorization from Last 3 Months Immunizations Immunization Administration [...] 18 11/05/2024 2:17 PM EDT Oxygen Saturation 98% 10/14/2024 1:50 PM EDT Inhaled Oxygen Concentration - - Weight 93.7 kg (206 lb 8 oz) 11/05/2024 2:17 PM EDT Height 160 cm (5' 3 ) 11/05/2024 2:17 PM EDT Body Mass Index 36.58 11/05/2024 2:17 PM EDT Plan of Treatment Upcoming Encounters Date Type Department Care Team (Late st Contact Info) Description 11/12/2024 9:30 AM EDT Clinical Support [address] [address] Azeb Hall, RN [address] [place] [address] 01/11/2025 1:00 PM EST Office Visit [address] [address] Anthony Ruiz, ANP [address] [place] [address] 02/03/2025 11:00 AM EST Medication Management [address] [address] Yuri Pierre, PharmD [address] [place] [phone] Health Maintenance Due Date Last Done Comments [...] Procedure Name Priority Date/Time Associated Diagnosis Comments BACTERIAL VAGINOSIS PANEL Routine 11/01/2024 12:00 AM EDT Vulvar itching LUPUS ANTICOAGULANT EVALUATION WITH REFLEX Routine 10/22/2024 10:49 AM EDT [id number] I ANTIBODIES (IGG, IGA, IGM) Routine 10/22/2024 10:49 AM EDT ACTIN (SMOOTH MUSCLE) ANTIBODY (IGG) Routine 10/22/2024 10:49 AM EDT CARDIOLIPIN AB (IGA,IGG,IGM) Routine 10/22/2024 10:49 AM EDT THYROID PEROXIDASE ANTIBODIES Routine 10/22/2024 10:49 AM EDT POCT GLYCATED HEMOGLOBIN, TOTAL Routine 10/14/2024 1:54 PM EDT Type 2 diabetes mellitus with hyperlipidemia (CMS/HCC) ([facility]) POCT GLUCOSE Routine 10/14/2024 1:52 PM EDT Type 2 diabetes mellitus with hyperlipidemia (CMS/HCC) ([facility]) REX SCREEN, IFA, W/REFL TITER AND [...] 9:11 AM EDT Viral URI with cough HEPATITIS C ANTIBODY ([place] [facility]) Routine 08/06/2024 HIV ANTIBODY/ANTIGEN ([facility]) Routine 08/06/2024 PROPHYLAXIS - ADULT Routine 08/04/2024 1 :00 PM EDT Dental plaque BITEWINGS - 2 RADIOGRAPHIC IMAGES Routine 08/04/2024 1:00 PM EDT Gingival recession, generalized Missing teeth, acquired Excessive attrition of teeth, generalized PERIODIC ORAL EVALUATION - ESTABLISHED PATIENT Routine 08/04/2024 1:00 PM EDT LIPID PANEL, STANDARD Routine 06/18/2024 10:18 AM EDT Type 2 diabetes mellitus with hyperlipidemia ([facility]/HCC) BI MAMMOGRAM SCREENING TOMOSYNTHESIS BILATERAL Routine 04/12/2024 1:48 PM EST ALBUMIN, RANDOM URINE W/CREATININE Routine 01/02/2024 8:44 AM EST Type 2 diabetes mellitus with hyperlipidemia ([facility]) PANORAMIC RADIOGRAPHIC IMAGE Routine 09/12/2023 3:00 PM EDT HM COLONOSCOPY Routine 12/27/2021 ZZZ HISTORICAL HPV E6/E7 RFLX ALFRED 16 18/45 Routine 05/09/2020 11:19 AM EDT from Last 3 Months or Most Recently Relevant to Health Maintenance Results * Bacterial Vaginosis Panel (11/01/2024 12:00 AM EDT) TRICHOMONAS VAGINALIS DETECTION BY PCR NOT DETECTED Not Detect [facility] BACTERIAL VAGINOSIS DETECTION BY PCR NEGATIVE Negative [facility] Comment:The BV organism targ [...] DETECTION BY PCR NOT DETECTED Not Detect [facility] Eufemia glab krusei PCR NOT DETECTED Not Detect [facility] Swab Vaginal structure / Unknown 11/01/2024 11/01/2024 us Reta Sue MD LAB MICROBIOLOGY - GENERAL ORD ERABLES Final Result [facility] [address] [place] [phone] [phone] * [id number] I Antibodies (IgG, IgA, IgM) (10/22/2024 10:49 AM EDT) B2 Glycoprotein I IgG Antibody <2.0 <20.0 U/mL [facility] Comment:Value Interpretatio n----- < 20.0 Antibody not detected> or = 20.0 Antibody detected B2 Glycoprotein I IgM Antibody <2.0 <20.0 U/mL [facility] Comment:Value Interpretation ----- < 20.0 Antibody not detected> or = 20.0 Antibody detected B2 Glycoprotein I IgA Antibody <2.0 <20.0 U/mL [facility] Comment: Value Interpretation----- < 20.0 Antibody not detected> or = 20.0 Antibody detectedThe antiphospholipid antibody syndrome (APS) is aclinical- pathologic correlation that includes aclinical event (e.g. arterial or venous thrombosis, morbidity) and persistent positiveantiphospholipid antibodies (IgM, IgG Cardiolipin qox2ZFK antibodies greater than the 99th percentile;or a [...] therapy or aging.For additional information, please refer [email or web address]/faq/[email or web address](This link is being provided for informational/educational purposes only.)THIS TEST WAS PERFORMED AT:[facility]/[id number] [place] [address]VGJXRWCDEAN CASAS MD,PHD 10/22/2024 10:4 9 AM EDT 10/22/2024 10:49 AM EDT Generic External Data Provider LAB BLOOD ORDERAB LES Final Result Performing Organization Address [facility] de Phone Number [facility] [address] [place] [phone] * (ABNORMAL) Thyroid Peroxidase Antibodies (10/22/2024 10:49 AM EDT) Thyroid Peroxidase Antibodies >900(A) <9 IU/mL [facility] Comment:THIS TEST WAS PERFOR MED AT:[facility] [address] [address]IDIRJHERNAN WARREN MD 10/22/2024 10:4 9 AM EDT 10/22/2024 10:49 AM EDT [facility] External Data Provider LAB BLOOD ORDERAB LES Final Result Performing Organization Address [facility] de Phone Number [facility] [address] [place] [phone] * (ABNORMAL) Actin (Smooth Muscle) Antibody (IgG) (10/22/2024 10:49 AM EDT) Only the most recent of2 resultswithin the time period is included. Smooth Muscle Antibody 47(A) <20 U [facility] Comment:Reference Range: <20 U: [...] with AIH type 1.THIS TEST WAS PERFORMED AT:[facility]/[address] [place] [address]FHIZSAWDEAN CASAS MD,PHD 10/22/2024 10:4 9 AM EDT 10/22/2024 10:49 AM EDT Generic External Data Provider LAB BLOOD ORDERAB LES Final Result Performing Organization Address [facility] Co de Phone Number [facility] [address] [place] [phone] * Lupus Anticoagulant Evaluation with Reflex (10/22/2024 10:49 AM EDT) Lupus Interpretation see note [facility] Comment:A Lupus Anticoagulan t is not detected.Reference Range: Not DetectedFor additional information, please refer tohttp://education.[email or web address]/faq/EHP11n3(This link is being provided for informational/educational purposes only.)This interpretation is based on the following testresults. PTT (LAC) Screen 33 <=40 sec [facility] DRVVT Screen 35 <=45 sec [facility] Comment:THIS TEST WAS PERFOR MED AT:[facility]/[address] [place] [address]HZUBLUPDEAN CASAS MD,PHD dRVVT Confirmation [facility] dRVVT 1:1 Mix TNP [facility] DRVVT 1:1 Mix Interpretation [facility] Hexagonal Phase Neutralization TNP [facility] Thrombin Clotting Time [facility] 10/22/2024 10:4 9 AM EDT 10/22/2024 10:49 AM EDT us Generic External Data Provider LAB BLOOD ORDERAB LES Final Result Performing Organization Address [facility]/ZIP Co de Phone Number [facility] [address] [place] [phone] * Cardiolipin Antibodies (IgA,IgG,IgM) (10/22/2024 10:49 AM EDT) Cardiolipin Antibody (IgG) <2.0 GPL-U/mL [facility] Comment:Value Interpretation ----- < 20.0 Antibody not detected> or = 20.0 Antibody detected Cardiolipin Antibody (IgM) <2.0 MPL-U/mL [facility] Comment: Value Interpretation----- < 20.0 Antibody not detected> or = 20.0 Antibody detectedThe antiphospholipid antibody syndrome (APS) is aclinical- pathologic correlation that includes aclinical event (e.g. arterial or venous thrombosis, morbidity) and persistent positiveantiphospholipid antibodies (IgM, IgG Cardiolipin rgh4PID antibodies greater than the 99th percentile; ora [...] therapy or aging.For additional information, please refer tohttp://[email or web address]/faq/RLQ369(This link is being provided for informational/educational purposes only.)THIS TEST WAS PERFORMED AT:[facility] [place] [id number] WARREN MD 10/22/2024 10:4 9 AM EDT 10/22/2024 10:49 AM EDT us Generic External Data Provider LAB BLOOD ORDERAB LES Final Result [facility] [address] [place] [address] [phone] * (ABNORMAL) POCT HGB A1C (10/14/2024 [...] Free T4 6.80(H) 0.32 - 4.0 uIU/mL [facility] 10/12/2024 2:10 PM EDT 10/12/2024 2:10 PM EDT Generic External Data Provider LAB BLOOD ORDERAB LES Final Result [facility] [address] [place] [phone] * Prothrombin Time-INR (10/12/2024 2:10 PM EDT) Pathologist [facility] Prothrombin Time 10.9 10.9 - 12.4 SEC [facility] INTERNATIONAL NORM RATIO 1.0 0.9 - 1.1 [facility] Comment:INTERNATIONAL NORMAL IZED RATIO [...] ORDERAB LES Final Result Performing Organization Address City/[facility]/ZIP Co de Phone Number [facility] [address] [place] [phone] * C-reactive Protein (10/12/2024 2:10 PM EDT) Pathologist [facility] C Reactive Protein 0.31 < or = 0.50 mg/dL [facility] 10/12/2024 2:10 PM EDT 10/12/2024 2:10 PM EDT [employer] External Data Provider LAB BLOOD ORDERAB LES Final Result Performing Organization Address [facility] Co de Phone Number [facility] [address] [place] [phone] * (ABNORMAL) REX Screen,IFA, with Reflex to Titer and Pattern (10/12/2024 2:10 PM EDT) Pathologist [facility] Anti Nuclear Antibody Screen POSITIV E(A) NEGATIVE [facility] Comment:REX IFA is a first l ine screen for detecting thepresence of up to approximately 150 autoantibodies invarious autoimmune diseases. A positive REX IFA resultis suggestive of autoimmune disease and reflexes totiter and pattern. Further laboratory testing may beconsidered if clinically indicated.For additional information, please refer tohttp://education.Tittat/faq/SFA554(This link is being provided for informational/educational purposes only.)THIS TEST WAS PERFORMED AT:[facility] [place] [phone] WARREN MD REX Titer 1:1280( A) titer [facility] Comment:Reference Range <1:4 0 Negative 1:40-1:80 Low Antibody Level >1:80 Elevated Antibody Level REX Pattern Nuclear , Homogen eous(A) [facility] Comment:Homogeneous pattern is associated with systemic lupuserythematosus (SLE), drug-induced lupus and juvenileidiopathic arthritis.AC-1: HomogeneousInternational Consensus on REX Patterns(https://doi.org/10.1515/kben-5779-5624)THIS TEST WAS PERFORMED AT:[facility] [place] [address] [phone] WARREN MD REX TITER 2 (REF LAB) [facility] R[facility] 2 [facility] REX TITER 3 [facility] REX PATTERN 3 [facility] 10/12/2024 2:10 PM EDT 10/12/2024 2:10 PM EDT Generic External Data Provider LAB BLOOD ORDERAB LES Final Result Performing Organization Address City/[facility]/ZIP Co de Phone Number [facility] [address] [place] [phone] * T4, Free (10/12/2024 2:10 PM EDT) Free T4 (Free Thyroxine) 0.99 0.71 - 1.85 ng/dL [facility] 10/12/2024 2:10 PM EDT 10/12/2024 2:10 PM EDT Generic External Data Provider LAB BLOOD ORDERAB LES Final Result Performing Organization Address [facility]/ZIP Co de Phone Number [facility] [address] [place] [address] [phone] * Lipase (10/12/2024 2:10 PM EDT) Lipase 20 8 - 78 U/L [facility] 10/12/2024 2:10 PM EDT 10/12/2024 2:10 PM EDT us Generic External Data Provider LAB BLOOD ORDERAB LES Final Result Performing Organization Address City/[facility]/ZIP Co de Phone Number [facility] [address] [place] [address] [phone] * (ABNORMAL) Hemoglobin A1c (10/12/2024 2:10 PM EDT) Hemoglobin A1c 6.5(H) <6.0 % [facility] Comment:Hemoglobin A1C Refer ence Range Adults: 4.8 - 6.0 % Non diabetic: < 6.0 % Goal: < 7.0 %Additional Action Suggested: > 8.0 %Note: Hemoglobin A1c results are invalid for patients with abnormal amounts of HbF. Blood transfusions may impact the HbA1c concentration in the patient sample. Estimated Average Glucose 140 mg/dL [facility] Comment:eAG = Estimated ave rage glucose which is %A1C expressed asaverage glucose, using the formula of the P1U-LgtgoxxDkugywl Glucose study (ADAG), Diabetes Care, Vol.31,#8,2007 10/12/2024 2:10 PM EDT 10/12/2024 2:10 PM EDT us Generic External Data Provider LAB BLOOD ORDERAB LES Final Result Performing Organization Address [facility] Co de Phone Number [facility] [address] [place] [address] [phone] * Ferritin (10/12/2024 2:10 PM EDT) Ferritin 69 10 - 250 ng/mL [facility] 10/12/2024 2:10 PM EDT 10/12/2024 2:10 PM EDT us Generic External Data Provider LAB BLOOD ORDERAB LES Final Result Performing Organization Address City/[facility]/ZIP Co de Phone Number [facility] [address] [place] [address] [phone] * Amylase (10/12/2024 2:10 PM EDT) Amylase 36 28 - 100 U/L [facility] 10/12/2024 2:10 PM EDT 10/12/2024 2:10 PM EDT us Generic External Data Provider LAB BLOOD ORDERAB LES Final Result [facility] [address] [place] [phone] * CT Lung Screening Low dose (10/09/2024 1:18 PM EDT) Anatomical Region Laterality Modality Lung Computed Tomogra phy 10/09/2024 1:18 PM EDT Narrative 10/09/2024 1:20 PM EDT [address] [address] [address] Scan Report Signed Patient: Nuvia Fay MR #: [id number] : 1960 Acct:[id number] Age/Sex: 64 / F ADM Date: 10/08/24 Loc: .CT Attending Dr: Ron Preciado MD Ordering Physician: Ron Preciado MD Date of Service: 10/08/24 Procedure(s): CT lung screening Accession Number(s): [id number] cc: Ron Preciado MD; ANTHONY RUIZ NP Report Number: [id number]: Total DLP = 64.00 mGy-cm CLINICAL HISTORY: [...] 10/09/24 1319 DD/ 1318 TD/TT: 10/09/24 1318 Visitor Services Assistant: Procedure Note Donotuseinterpreter, Image - 10/09/[address] [address] [address] Scan Report Signed Patient: Nuvia Fay EMR #: [id number] : 1Acct:[id number] Age/Sex: 64 / FADM Date: 10/08/24 Loc: HO.CT Attending Dr: Ron Preciado MD Ordering Physician: Ron Preciado MD Date of Service: 10/08/24 Procedure(s): CT lung screening Accession Number(s): [id number] cc: Ron Preciado MD; ANTHONY RUIZ NP Report Number: [id number]: Total DLP = 64.00 mGy-cm CLINICAL HISTORY: [...] 10/09/24 1319 DD/ 1318 TD/TT: 10/09/24 1318 Visitor Services Assistant: [facility] External Provider IMG CT PROCEDURES [...] - 10/01/2024 10:43 AM EDT .UTOX cup Lot#[id number] Exp. 11/23/25 Internal Pass Control Anthony PAGE POINT OF CARE TEST ENTER/EDIT OR DERABLES Final Result * Influenza A (ID NOW Rapid Molecular) (08/19/2024 9:20 AM EDT) Influenza A Negative Negative, Indeterminate [facility] Swab 08/19/2024 9:20 AM EDT Ramon Damon MD POINT OF CARE TEST ENTER/EDIT OR DERABLES Final Result [facility] [address] [place] [phone] * Influenza B (ID NOW Rapid Molecular) (08/19/2024 9:19 AM EDT) Influenza B Negative Negative, Indeterminate [facility] Swab 08/19/2024 9:19 AM EDT Ramon Damon MD POINT OF CARE TEST ENTER/EDIT OR DERABLES Final Result [facility] [address] [place] [phone] [phone] * POCT Rapid COVID Ag (08/19/2024 9:11 AM EDT) Rapid COVID Ag Negative Swab 08/19/2024 9:11 AM EDT Ramon Damon MD POINT OF CARE TEST ENTER/EDIT OR DERABLES Final Result * Hepatitis C Antibody ([facility]) (08/06/2024) Hepatitis C Ab Nonreactive Blood 08/06/2024 Historical Provider LAB BLOOD ORDERABLES Kelsey l Result * HIV Ab/Ag ([facility]) (08/06/2024) HIV Ag/Ab Nonreactive Blood 08/06/2024 Historical Provider LAB BLOOD ORDERABLES Kelsey l Result * (ABNORMAL) Lipid Panel, Standard (06/18/2024 10:18 AM EDT) Triglycerides 122 <150 mg/dL [facility] Comment:Desirable Triglyceri de: less than 150 mg/dLBorderline High Triglyceride 150-199 mg/dLHigh Triglyceride: 200-499 mg/dLVery High Triglyceride: greater than or equal to 5OO mg/dL Cholesterol 216(H) <200 mg/dL [facility] Comment:Desirable Cholestero l: less than 200 mg/dLBorderline High Cholesterol: 200-239 mg/dLHigh Cholesterol: greater than 239 mg/dL LDL Cholesterol Calculated 128(H) <100 mg/dL [facility] Comment:Desirable LDL: less than 100 mg/dLNear Optimal/Above Optimal LDL: 110- 129 mg/dLBorderline High LDL: 130-159 mg/dLHigh LDL: 160-189 mg/dLVery High LDL: greater than or equal to 190 mg/dL HDL Cholesterol 64 >40 mg/dL [facility] Comment:Desirable HDL: great er than 40 mg/dL Note: This HDL assay may give artificially low results in patients with liver disease. Blood Venous blood specimen / Unknown 06/18/2024 10:18 AM EDT 06/18/2024 11:08 AM EDT us Anthony Ruiz ANP LAB BLOOD ORDERABLES Final Resul t [facility] [address] [place] [phone] * BI Mammogram Screening Tomosynthesis Bilateral (04/12/2024 1:48 PM EST) Anatomical Region Laterality Modality Breast Bilateral Mammography 04/12/2024 1:48 PM EST Narrative 04/17/2024 12:38 PM EST [address] [place] [address] Mammography Report Signed Patient: Nuvia Fay MR #: [id number] : 1960 Acct:[id number] Age/Sex: 63 / F ADM Date: 04/12/24 Loc: HO.MAMMO Attending Dr: Monica Lozano CNM Ordering Physician: Monica Lozano CNM Results: 2Beni gn Findings Date of Service: 04/12/24 Follow Up: 1 Year From [facility] ina Mammogram Procedure(s): MM tomosynthesis screening BI Accession Number(s): [id number] cc: Monica Lozano CNM; ANTHONY RUIZ NP [...] 04/17/24 1235 DD/ 1348 TD/TT: 04/12/24 1405 Visitor Services Assistant: Procedure Note Donotuseinterpreter, Image - 04/17/2024 [facility] [address] [place] [address] Mammography Report Signed Patient: Nuvia Fay EMR #: [id number] : 1960cct:[id number] Age/Sex: 63 / FADM Date: 04/12/24 Loc: HO.MAMMO Attending Dr: Monica Lozano CNM Ordering Physician: Monica LozanoMResults: 2Beni gn Findings Date of Service: 04/12/24Follow Up: 1 Year From Orig inal Mammogram Procedure(s): MM tomosynthesis screening BI Accession Number(s): [id number] cc: Monica Lozano CNM; ANTHONY RUIZ NP [...] 04/17/24 1235 DD/ 1348 TD/TT: 04/12/24 1405 Visitor Services Assistant: [facility] External Provider IMG BI PROCEDURES Edited Result - Final * Albumin, Random Urine W/Creatinine (01/02/2024 8:44 AM EST) Creatinine, Urine 47.20 mg/dL [facility] Microalbumin Urine 7.0 mg/L [facility] Microalbum Creatinine Ratio Ur 14.8 <30 ug/mg cr [facility] Comment:Albumin/Creatinine R atio Reference Ranges: Normal: < 30 ug/mg creatinine Microalbuminuria: 30 - 300 ug/mg creatinineClinical Albuminuria: > 300 ug/mg creatinine Urine (Urine, Random) 01/02/2024 8:44 AM EST 01/02/2024 11:09 AM EST [facility] LAB URINE ORDERABLES Final Resul t [facility] [address] [place] [phone] * (ABNORMAL) Hm Colonoscopy (12/27/2021) Colonoscopy Abnormal(A ) Normal Historical Provider HEALTH MAINTENANCE Final Result * HPV E6/E7 RFLX ALFRED 16 18/45 (05/09/2020 11:19 AM EDT) HPV mRNA E6/E7 rflx Not Detected Not Detected [facility] Comment: Methodology: Broiler Manager-Mediated Amplification This assay detects E6/E7 viral messenger RNA (mRNA) from 14 high-risk HPV types (16,18,31,33,35,39,45,51,52,56,58,59,66,68). The analytical performance characteristics of this assay have been determined by [employer]. The modifications have not been cleared or approved by the FDA. This assay has been validated pursuant to the CLIA regulations and is used for clinical purposes. For additional information, please refer to http://education.[employer]/faq/FWO259t7 (This link if provided for information/ educational purposes only.) THIS TEST WAS PERFORMED AT: [facility] [address] [place] [address],[place] [address] HERNAN WARREN MD 05/09/2020 11:1 9 AM EDT [facility] HISTORICAL/NON ORDERABLE LABS Fi nal Result [facility] [address] from Last 3 Months or Most Recently Relevant to Health Maintenance Insurance [facility] ONE CARE < 65 RAYMUNDO [place]ARRERA [id number] D[facility] - [facility] Care Teams Bit Shaver Relationship Specialty Start Date End Date Anthony Ruiz ANP [address] [place] [address] PCP - General Family Medicine 09/23/19 Yuri Pierre, MikeD [address] [place] [address] Pharmacist Internal Medicine 05/05/24 Basilio Hall MD [address] [place], [place] Cardiology 05/17/24 Ron Preciado MD [address] [place] [address] Pulmonary Disease 05/17/24
--- OUTSIDE RECORDS SUMMARY | 2024-11-08 12:26 | XMS_ITS | Encounter Summary ---
Author Organization [employer] Address [address] [facility] [address] 7t [place] [address] Care Team Providers Care Instrument Maintenance Supervisor Name Role Phone Sariah Vickers KALYEE Primary Care Provider [phone] Yuri Pierre PharmD Unavailable [phone] Basilio Hall MD Unavailable [phone] Ron Preciado MD Unavailable [phone] Encounter Details Date Type Department Care Team (Latest Contact Info) Description 11/05/2024 Travel Social History Tobacco Use Types Packs/Day [...] 11/12/2024 9:30 AM EDT Clinical Support [address] [address] Azeb Hall RN [address] [place] [address] 01/11/2025 1:00 PM EST Office Visit [address] [address] Sariah Vickers ANP [address] [place] [address] 02/03/2025 11:00 AM EST Medication Management [address] [address] Yuri Pierre, PharmD [address] [place] [address] documented as of this encounter Goals Goal Patient Goal Type Associated Problems Recent Progress Patient-Stated? Author Blood Pressure < 140/90 Blood Pressure 130/84(2024 2:17 PM EDT) No Aida Ragland, PharmD Record Your Blood Sugar As Directed General No Phanis-GambVeronica bucksa, PharmD Hemoglobin A1c < 7 Result Component 6.6( 1:54 PM EDT) No Phanis-Aida Medina, PharmD documented as of this encounter Visit Diagnoses Not on filedocumented in this encounter Additional Health Concerns Assessment Noted Time PHQ-9 Depression Total Score: 11 10/19/ 025 5:30 PM EDT documented as of this encounter Care Teams Instrument Maintenance Supervisor Relationship Specialty Start Date End Date Sariah Vickers ANP [address] [place] [address] PCP - General Family Medicine 09/23/19 Yuri Pierre, MikeD [address] [place] [address] Pharmacist Internal Medicine 05/05/24 Basilio Hall MD [address] [place] [address] Cardiology 05/17/24 Ron Preciado MD [address] [place] [address] Pulmonary Disease 05/17/24 documented as of this encounter
--- OUTSIDE RECORDS SUMMARY | 2024-11-08 12:26 | XMS_ITS | Encounter Summary ---
Author Organization [employer] Address [address] [facility] 7t [place] [address] Care Team Providers Care Escort Patients Name Role Phone Sariah Vickers Primary Care Provider [phone] Yuri Pierre PharmD Unavailable [phone] Basilio Hall MD Unavailable [phone] Ron Preciado MD Unavailable [phone] Reason for Visit * Reason Comments Med Refill Encounter Details Date Type Department Care Team (Late st Contact Info) Description 10/24/2023 Refill [facility] [address] [place] [address] Sariah Vickers ANP [address] [place] [address] Neck pain Social History Tobacco Use Types [...] Description 11/12/2024 9:30 AM EDT Clinical Support [address] [address] Azeb Hall, MARTIN [address] [place] [address] 01/11/2025 1:00 PM EST Office Visit [address] [address] Sariah Vickers ANP [address] [place] [address] 02/03/2025 11:00 AM EST Medication Management [address] [address] Yuri Pierre, MikeD [address] [place] [address] documented as of this encounter Goals Goal [...] documented as of this encounter Care Teams Escort Patients Relationship Specialty Start Date End Date Sariah Vickers ANP [address] [place] [address] PCP - General Family Medicine 09/23/19 Yuri Pierre, MikeD [address] [place] [address] Pharmacist Internal Medicine 05/05/24 Basilio Hall MD [address] [place] [address] Cardiology 05/17/24 Ron Preciado MD [address] [place] [address] Pulmonary Disease 05/17/24 documented as of this encounter
--- OUTSIDE RECORDS SUMMARY | 2024-11-08 12:26 | XMS_ITS | Encounter Summary ---
Author Organization [employer] Address [address] [facility] 7t [place] [address] Care Team Providers Care Media Planner Name Role Phone Sariah Vickers Primary Care Provider [phone] Yuri Pierre PharmD Unavailable [phone] Basilio Hall MD Unavailable [phone] Ron Preciado MD Unavailable [phone] Reason for Visit * Reason Comments Med Refill Encounter Details Date Type Department Care Team (Late st Contact Info) Description 01/06/2024 Refill [facility] MED & PEDS [address] [place] [address] Sariah Vickers ANP [address] [place] [address] Cervicalgia Social History Tobacco Use Types Packs/Day [...] Description 11/12/2024 9:30 AM EDT Clinical Support [address] [address] Azeb Hall RN [address] [place] [address] 01/11/2025 1:00 PM EST Office Visit [address] [address] Sariah Vickers ANP [address] [place] [address] 02/03/2025 11:00 AM EST Medication Management [address] [address] Yuri Pierre, MikeD [address] [place] [address] documented as of this encounter Goals Goal [...] documented as of this encounter Care Teams Media Planner Relationship Specialty Start Date End Date Sariah Vickers ANP [address] [place] [address] PCP - General Family Medicine 09/23/19 Yuri Pierre, MikeD [address] [place] [address] Pharmacist Internal Medicine 05/05/24 Basilio Hall MD [address] [place] [address] Cardiology 05/17/24 Ron Preciado MD [address] [place] [address] Pulmonary Disease 05/17/24 documented as of this encounter
--- OUTSIDE RECORDS SUMMARY | 2024-11-08 12:26 | XMS_ITS | Encounter Summary ---
Author Organization [employer] Address [address] [facility] 7t [place] [address] Care Team Providers Care Digital Marketing Consultant Name Role Phone Sariah Vickers Primary Care Provider [phone] Yuri Pierre PharmD Unavailable [phone] Basilio Hall MD Unavailable [phone] Ron Preciado MD Unavailable [phone] Reason for Visit * Reason Comments Med Refill Encounter Details Date Type Department Care Team (Late st Contact Info) Description 10/17/2023 Refill [facility] [address] [place] [address] Sariah Vickers ANP [address] [place] [address] Neck pain Social History Tobacco Use Types [...] 11/12/2024 9:30 AM EDT Clinical Support [address] [address] Azeb Hall, MARTIN [address] [place] [address] 01/11/2025 1:00 PM EST Office Visit [address] [address] Sariah Vickers ANP [address] [place] [address] 02/03/2025 11:00 AM EST Medication Management [address] [address] Yuri Pierre, MikeD [address] [place] [address] documented as of this encounter Goals Goal [...] as of this encounter Care Teams Digital Marketing Consultant Relationship Specialty Start Date End Date Sariah Vickers ANP [address] [place] [address] PCP - General Family Medicine 09/23/19 Yuri Pierre, MikeD [address] [place] [address] Pharmacist Internal Medicine 05/05/24 Basilio Hall MD [address] [place] [address] Cardiology 05/17/24 Ron Preciado MD [address] [place] [address] Pulmonary Disease 05/17/24 documented as of this encounter
--- OUTSIDE RECORDS SUMMARY | 2024-11-08 12:26 | XMS_ITS | Encounter Summary ---
Author Organization [employer] Address [address] [facility] 7t [place] [address] Care Team Providers Care Fashion Consultant Sales Name Role Phone Sariah Vickers Primary Care Provider [phone] Yuri Pierre PharmD Unavailable [phone] Basilio Hall MD Unavailable [phone] Ron Preciado MD Unavailable [phone] Reason for Visit * Reason Comments Med Refill Encounter Details Date Type Department Care Team (Late st Contact Info) Description 11/26/2023 Refill [facility] MEDICINE [address] [place] [address] Sariah Vickers ANP [address] [place] [address] Vertigo Social History Tobacco Use Types Packs/Day [...] Description 11/12/2024 9:30 AM EDT Clinical Support [address] [address] Azeb Hall, MARTIN [address] [place] [address] 01/11/2025 1:00 PM EST Office Visit [address] [address] Sariah Vickers ANP [address] [place] [address] 02/03/2025 11:00 AM EST Medication Management [address] [address] Yuri Pierre, MikeD [address] [place] [address] documented as of this encounter Goals Goal Patient Goal Type Associated Problems Recent Progress Patient-Stated? Author Blood Pressure < 140/90 Blood Pressure 130/84(2024 2:17 PM EDT) No Aida Ragland PharmBear Record Your Blood Sugar As Directed General No Aida Ragland PharmD Hemoglobin A1c < 7 Result Component 6.6( 5 1:54 PM EDT) No Aiad Ragland PharmD documented as of this encounter Visit Diagnoses Diagnosis Vertigo Dizziness and giddiness documented in this encounter Additional Health Concerns Assessment Noted Time PHQ-9 Depression Total Score: 12 024 2:58 PM EDT documented as of this encounter Care Teams Fashion Consultant Sales Relationship Specialty Start Date End Date Sariah Vickers ANP [address] [place] [address] PCP - General Family Medicine 09/23/19 Yuri Pierre, MikeD [address] [place] [address] Pharmacist Internal Medicine 05/05/24 Basilio Hall MD [address] [place] [address] Cardiology 05/17/24 Ron Preciado MD [address] [place] [address] Pulmonary Disease 05/17/24 documented as of this encounter
--- OUTSIDE RECORDS SUMMARY | 2024-11-08 12:26 | XMS_ITS | Encounter Summary ---
Author Organization [employer] Address [address] [facility] 7t [place] [address] Care Team Providers Care Charge Hand Name Role Phone Sariah Vickers Primary Care Provider [phone] Yuri Pierre PharmD Unavailable [phone] Basilio Hall MD Unavailable [phone] Ron Preciado MD Unavailable [phone] Reason for Visit * Reason Comments Med Refill Encounter Details Date Type Department Care Team (Late st Contact Info) Description 11/24/2023 Refill [facility] MED[facility]INE [address] [place] [address] Sairah Vickers ANP [address] [place] [address] Vertigo Social History Tobacco Use Types Packs/Day [...] Description 11/12/2024 9:30 AM EDT Clinical Support [address] [address] Azeb Hall, MARTIN [address] [place] [address] 01/11/2025 1:00 PM EST Office Visit [address] [address] Sariah Vickers ANP [address] [place] [address] 02/03/2025 11:00 AM EST Medication Management [address] [address] Yuri Pierre, MikeD [address] [place] [address] documented as of this encounter Goals Goal [...] documented as of this encounter Care Teams Charge Hand Relationship Specialty Start Date End Date Sariah Vickers ANP [address] [place] [address] PCP - General Family Medicine 09/23/19 Yuri Pierre, MikeD [address] [place] [address] Pharmacist Internal Medicine 05/05/24 Basilio Hall MD [address] [place] [address] Cardiology 05/17/24 Ron Preciado MD [address] [place] [address] Pulmonary Disease 05/17/24 documented as of this encounter
--- OUTSIDE RECORDS SUMMARY | 2024-11-08 12:26 | XMS_ITS | Encounter Summary ---
Author Organization [employer] Address [address] [facility] 7t [place] [address] Care Team Providers Care Expansion Joint Finisher Name Role Phone Sariah Vickers Primary Care Provider [phone] Yuri Pierre PharmD Unavailable [phone] Basilio Hall MD Unavailable [phone] Ron Preciado MD Unavailable [phone] Reason for Visit * Reason Comments Med Refill Encounter Details Date Type Department Care Team (Late st Contact Info) Description 01/06/2024 Refill [facility] CHC MED & PEDS [address] [place] [address] Sariah Vickers ANP [address] [place] [address] Cervicalgia Social History Tobacco Use Types Packs/Day [...] Description 11/12/2024 9:30 AM EDT Clinical Support [address] [address] Azeb Hall RN [address] [place] [address] 01/11/2025 1:00 PM EST Office Visit [address] [address] Sariah Vickers ANP [address] [place] [address] 02/03/2025 11:00 AM EST Medication Management [address] [address] Yuri Pierre, MikeD [address] [place] [address] documented as of this encounter Goals Goal [...] documented as of this encounter Care Teams Expansion Joint Finisher Relationship Specialty Start Date End Date Sariah Vickers ANP [address] [place] [address] PCP - General Family Medicine 09/23/19 Yuri Pierre, MikeD [address] [place] [address] Pharmacist Internal Medicine 05/05/24 Basilio Hall MD [address] [place] [address] Cardiology 05/17/24 Ron Preciado MD [address] [place] [address] Pulmonary Disease 05/17/24 documented as of this encounter
--- OUTSIDE RECORDS SUMMARY | 2024-11-08 12:26 | XMS_ITS | Encounter Summary ---
Author Organization [employer] Address 75 [facility] 7t [place] [address] Care Team Providers Care Database Security Administrator Name Role Phone Sariah Vickers Primary Care Provider [phone] Yuri Pierre PharmD Unavailable [phone] Basilio Hall MD Unavailable [phone] Ron Preciado MD Unavailable [phone] Reason for Visit * Reason Onset Date Comments Nurse Triage 12/24/2022 Encounter Details Date Type Department Care Team (Late st Contact Info) Description 12/24/2022 Telephone [facility] MEDICINE [address] [place] [address] Sariah Vickers ANP 230 [place] [address] Nurse Triage Social History Tobacco Use Types [...] - 12/24/2022 1:11 PM EST Called pt.via [employer] load manager [phone] Benjamin. Pt. States that she wants to [...] regimen and possible referral to a new Truck Engine Technician due to pt. Not having jeremie in [...] accepted this outcome Please contact pt at [phone] documented in this encounter Plan of Treatment Upcoming Encounters Date Type Department Care Team (Late st Contact Info) Description 11/12/2024 9:30 AM EDT Clinical Support [address] [address] Azeb Hall, RN 505 [place] [address] 01/11/2025 1:00 PM EST Office Visit [address] [address] Sariah Vickers ANP 230 [place], [place] 02/03/2025 11:00 AM EST Medication Management [address] [address] Yuri Pierre PharmD [address] [place] [address] documented as of this encounter Goals Goal Patient Goal Type Associated Problems Recent Progress Patient-Stated? Author Blood Pressure < 140/90 Blood Pressure 130/84(2024 2:17 PM EDT) No PhanisAida Cheng, PharmD Record Your Blood Sugar As Directed General No Aida Ragland, PharmD Hemoglobin A1c < 7 Result Component 6.6( 1:54 PM EDT) No Aida Ragland, PharmD documented as of this encounter Visit Diagnoses Not on filedocumented in this encounter Care Teams Database Security Administrator Relationship Specialty Start Date End Date Sariah Vickers ANP [address] [place] [address] PCP - General Family Medicine 09/23/19 Yuri Pierre, PharmD [address] [place] [address] Pharmacist Internal Medicine 05/05/24 Basilio Hall MD 596 [place] [address] Cardiology 05/17/24 Ron Preciado MD [address] [place], [place] [address] Pulmonary Disease 05/17/24 documented as of this encounter
--- OUTSIDE RECORDS SUMMARY | 2024-11-08 12:26 | XMS_ITS | Encounter Summary ---
Author Organization [employer] Address 75 [facility] 7t [place] [address] Care Team Providers Care Brand Manager Name Role Phone Sariah Vickers Primary Care Provider [phone] Yuri Pierre PharmD Unavailable [phone] Basilio Hall MD Unavailable [phone] Ron Preciado MD Unavailable [phone] Reason for Visit * Reason Comments Med Refill Encounter Details Date Type Department Care Team (Late st Contact Info) Description 11/14/2023 Refill [facility] MEDICINE 230 [place] [address] Sariah Vickers ANP 230 [place] [address] Neck pain Social History Tobacco Use Types [...] Description 11/12/2024 9:30 AM EDT Clinical Support [address] [address] Azeb Hall, MARTIN [address] [place] [address] 01/11/2025 1:00 PM EST Office Visit [address] [address] Sariah Vickers ANP [address] [place] [address] 02/03/2025 11:00 AM EST Medication Management [address] [address] Yuri Pierre, MikeD [address] [place] [address] documented as of this encounter Goals Goal [...] documented as of this encounter Care Teams Brand Manager Relationship Specialty Start Date End Date Sariah Vickers ANP 230 [place] [address] PCP - General Family Medicine 09/23/19 Yuri Pierre, MikeD [address] [place] [address] Pharmacist Internal Medicine 05/05/24 Basilio Hall MD [address] [place] [address] Cardiology 05/17/24 Ron Preciado MD [address] [place] [address] Pulmonary Disease 05/17/24 documented as of this encounter
--- OUTSIDE RECORDS SUMMARY | 2024-11-08 12:27 | XMS_ITS | Encounter Summary ---
Author Organization [employer] Address 75 [facility] 7t [place] [address] Care Team Providers Care Metal Weather Stripper Name Role Phone Sariah Vickers Primary Care Provider Yuri Pierre PharmD Unavailable [phone] Basilio Hall MD Unavailable [phone] Ron Preciado MD Unavailable [phone] Reason for Visit * Reason Comments Med Refill Encounter Details Date Type Department Care Team (Late st Contact Info) Description 02/28/2023 Refill [facility] MEDICINE 230 [place] [address] Sariah Vickers ANP 230 [place] [address] Cervicalgia Social History Tobacco Use Types Packs/Day [...] Description 11/12/2024 9:30 AM EDT Clinical Support [address] [address] Azeb Hall, MARTIN 505 [place] [address] 01/11/2025 1:00 PM EST Office Visit [facility] MEDICINE [address] [place] [address] Sariah Vickers ANP [address] [place] [address] 02/03/2025 11:00 AM EST Medication Management [address] [address] Yuri Pierre, MikeD [address] [place] [address] documented as of this encounter Goals Goal [...] Cervicalgia documented in this encounter Care Teams Metal Weather Stripper Relationship Specialty Start Date End Date Sariah Vickers ANP 230 [place] [address] PCP - General Family Medicine 09/23/19 Yuri Pierre, MikeD 230 [place] [address] Pharmacist Internal Medicine 05/05/24 Basilio Hall MD 596 [place], [place] [address]684[address] Cardiology 05/17/24 Ron Preciado MD [address] [place] [address] Pulmonary Disease 05/17/24 documented as of this encounter
--- OUTSIDE RECORDS SUMMARY | 2024-11-08 12:27 | XMS_ITS | Encounter Summary ---
Author Organization [employer] Address 75 [facility] 7t [place] [address] Care Team Providers Care Apartment Leasing Agent Name Role Phone Sariah Vickers Primary Care Provider [phone] Yuri Pierre PharmD Unavailable [phone] Basilio Hall MD Unavailable [phone] Ron Preciado MD Unavailable [phone] Encounter Details Date Type Department Care Team (Late st Contact Info) Description 10/26/2024 Results Follow-Up [facility] MEDICINE 230 [place] [address] Sariah Vickers ANP 230 [place] [address] Thyroid Peroxidase Antibodies, Cardiolipin Antibodies (IgA,IgG,IgM) Social [...] Description 11/12/2024 9:30 AM EDT Clinical Support [address] [address] Azeb Hall RN 505 [place] [address] 01/11/2025 1:00 PM EST Office Visit [address] [address] Sariah Vickers ANP [address] [place] [address] 02/03/2025 11:00 AM EST Medication Management [address] [address] Yuri Pierre, PharmD 230 [place] [address] documented as of this encounter Goals Goal [...] documented as of this encounter Care Teams Apartment Leasing Agent Relationship Specialty Start Date End Date Sariah Vickers ANP 230 [place] [address] PCP - General Family Medicine 09/23/19 Yuri Pierre, PharmD 230 [place] [address] Pharmacist Internal Medicine 05/05/24 Basilio Hall MD 596 [place] [address] Cardiology 05/17/24 Ron Preciado MD [address] [place] [address] Pulmonary Disease 05/17/24 documented as of this encounter
--- OUTSIDE RECORDS SUMMARY | 2024-11-08 12:27 | XMS_ITS | Encounter Summary ---
Author Organization [employer] Address 75 [facility] 7t [place] [address] Care Team Providers Care Business Development Representative Name Role Phone Sariah Vickers Primary Care Provider [phone] Yuri Pierre PharmD Unavailable [phone] Basilio Hall MD Unavailable [phone] Ron Preciado MD Unavailable [phone] Reason for Visit * Reason Onset Date Comments Appointment Request 09/03/2024 Encounter Details Date Type Department Care Team (Late st Contact Info) Description 09/03/2024 Telephone [facility] MEDICINE 230 [place] [address] Sariah Vickers ANP 230 [place] [address] Appointment Request Social History Tobacco Use Types [...] when making the apt. Contact pt at [phone] documented in this encounter Plan of Treatment Upcoming Encounters Date Type Department Care Team (Late st Contact Info) Description 11/12/2024 9:30 AM EDT Clinical Support [address] [address] Azeb Hall RN 505 [place] [address] 01/11/2025 1:00 PM EST Office Visit [address] [address] Sariah Vickers ANP [address] [place] [address] 02/03/2025 11:00 AM EST Medication Management [address] [place] [address] Yuri Pierre, PharmD 230 [place] [address] documented as of this encounter Goals Goal [...] as of this encounter Care Teams Business Development Representative Relationship Specialty Start Date End Date Sariah Vickers ANP [address] [place] [address] PCP - General Family Medicine 09/23/19 Yuri Pierre, PharmD [address] [place] [address] Pharmacist Internal Medicine 05/05/24 Basilio Hall MD [address] [place] [address] Cardiology 05/17/24 Ron Preciado MD [address] [place] [address] Pulmonary Disease 05/17/24 documented as of this encounter
--- OUTSIDE RECORDS SUMMARY | 2024-11-08 12:27 | XMS_ITS | Encounter Summary ---
Author Organization [employer] Address 75 [facility] 7t [place] [address] Care Team Providers Care Mutuel Teller Name Role Phone Sariah Vickers Primary Care Provider [phone] Yuri Pierre PharmD Unavailable [phone] Basilio Hall MD Unavailable [phone] Ron Preciado MD Unavailable [phone] Reason for Visit * Reason Comments Med Refill Encounter Details Date Type Department Care Team (Late st Contact Info) Description 07/10/2022 Refill [facility] MEDICINE 230 [place] [address] Sariah Vickers ANP 230 [place] [address] Vertigo Social History Tobacco Use Types Packs/Day [...] Description 11/12/2024 9:30 AM EDT Clinical Support [address] [address] Azeb Hall, RN 505 [place] [address] 01/11/2025 1:00 PM EST Office Visit [address] [address] Sariah Vickers ANP [address] [place] [address] 02/03/2025 11:00 AM EST Medication Management [address] [address] Yrui Pierre, PharmD [address] [place] [address] documented as of this encounter Visit Diagnoses Diagnosis Vertigo Dizziness and giddiness documented in this encounter Care Teams Mutuel Teller Relationship Specialty Start Date End Date Sariah Vickers ANP [address] [place] [address] PCP - General Family Medicine 09/23/19 Yuri Pierre, PharmD [address] [place] [address] Pharmacist Internal Medicine 05/05/24 Basilio Hall MD [address] [place] [address] Cardiology 05/17/24 Ron Preciado MD [address] [place] [address] Pulmonary Disease 05/17/24 documented as of this encounter
--- OUTSIDE RECORDS SUMMARY | 2024-11-08 12:27 | XMS_ITS | Encounter Summary ---
Author Organization [employer] Address 75 [facility] 7t [place] [address] Care Team Providers Care Electronics Engineer Name Role Phone Sariah Vickers Primary Care Provider [phone] Yuri Peirre PharmD Unavailable [phone] Basilio Hall MD Unavailable [phone] Ron Preciado MD Unavailable [phone] Reason for Visit * Reason Comments Med Refill Encounter Details Date Type Department Care Team (Late st Contact Info) Description 08/14/[address] [facility]S [address] [place] [address] Sariah Vickers ANP 230 [place] [address] Severe persistent asthma without complication Social History [...] 11/12/2024 9:30 AM EDT Clinical Support [address] [address] Azeb Hall, MARTIN 505 [place] [address] 01/11/2025 1:00 PM EST Office Visit [address] [address] Sariah Vickers ANP [address] [place] [address] 02/03/2025 11:00 AM EST Medication Management [address] [address] Yuri Pierre, PharmD [address] [place] [address] documented as of this encounter Visit Diagnoses Diagnosis Severe persistent asthma without complication documented in this encounter Care Teams Electronics Engineer Relationship Specialty Start Date End Date Sariah Vickers ANP [address] [place] [address] PCP - General Family Medicine 09/23/19 Yuri Pierre, PharmD [address] [place] [address] Pharmacist Internal Medicine 05/05/24 Basilio Hall MD [address] [place] [address] Cardiology 05/17/24 Ron Preciado MD [address] [place] [address] Pulmonary Disease 05/17/24 documented as of this encounter
--- OUTSIDE RECORDS SUMMARY | 2024-11-08 12:27 | XMS_ITS | Encounter Summary ---
Author Organization [employer] Address 75 [facility] 7t [place] [address] Care Team Providers Care Seasonal Customer Service Associate Name Role Phone Sariah Vickers Primary Care Provider [phone] Yuri Pierre PharmD Unavailable [phone] Basilio Hall MD Unavailable [phone] Ron Preciado MD Unavailable [phone] Reason for Visit * Reason Comments Med Refill Encounter Details Date Type Department Care Team (Late st Contact Info) Description 07/12/2022 Refill [facility] MEDICINE 230 [place] [address] Sariah Vickers ANP 230 [place] [address] Social History Tobacco Use Types Packs/Day Years [...] 11/12/2024 9:30 AM EDT Clinical Support [address] [address] Azeb Hall, RN 505 [place] [address] 01/11/2025 1:00 PM EST Office Visit [address] [address] Sariah Vickers ANP [address] [place] [address] 02/03/2025 11:00 AM EST Medication Management [address] [address] Yuri Pierre, PharmD [address] [place] [address] documented as of this encounter Visit Diagnoses Not on filedocumented in this encounter Care Teams Seasonal Customer Service Associate Relationship Specialty Start Date End Date Sariah Vickers ANP [address] [place] [address] PCP - General Family Medicine 09/23/19 Yuri Pierre, PharmD [address] [place] [address] Pharmacist Internal Medicine 05/05/24 Basilio Hall MD 596 [place] [address] Cardiology 05/17/24 Ron Preciado MD [address] [place] [address] Pulmonary Disease 05/17/24 documented as of this encounter
--- OUTSIDE RECORDS SUMMARY | 2024-11-08 12:27 | XMS_ITS | Encounter Summary ---
Author Organization [employer] Address 75 [facility] 7t [place] [address] Care Team Providers Care Corn Cooker Name Role Phone Sariah Vickers Primary Care Provider [phone] Yuri Pierre PharmD Unavailable [phone] Basilio Hall MD Unavailable [phone] Ron Preciado MD Unavailable [phone] Reason for Visit * Reason Comments Med Refill Encounter Details Date Type Department Care Team (Late st Contact Info) Description 07/10/2023 Refill [facility] 230 [place] [address] Sariah Vickers ANP 230 [place], [place] [phone] Chronic SI joint pain Social History Tobacco [...] 11/12/2024 9:30 AM EDT Clinical Support [address] [address] Azeb Hall, MARTIN 505 [place] [address] 01/11/2025 1:00 PM EST Office Visit [address] [address] Sariah Vickers ANP [address] [place] [address] 02/03/2025 11:00 AM EST Medication Management [address] [address] Yuri Pierre, MikeD [address] [place] [address] documented as of this encounter Goals Goal [...] documented as of this encounter Care Teams Corn Cooker Relationship Specialty Start Date End Date Sariah Vickers ANP 230 [place] [address] PCP - General Family Medicine 09/23/19 Yuri Pierre, MikeD 230 [place] [address] Pharmacist Internal Medicine 05/05/24 Basilio Hall MD [address] [place] [address] Cardiology 05/17/24 Ron Preciado MD [address] [place] [address] Pulmonary Disease 05/17/24 documented as of this encounter
--- OUTSIDE RECORDS SUMMARY | 2024-11-08 12:27 | XMS_ITS | Encounter Summary ---
Author Organization [employer] Address 75 [facility] 7t [place] [address] Care Team Providers Care Meteorologist Liaison Name Role Phone Sariah Vickers Primary Care Provider [phone] Yuri Pierre PharmD Unavailable [phone] Basilio Hall MD Unavailable [phone] Ron Preciado MD Unavailable [phone] Reason for Visit * Reason Comments Med Refill Encounter Details Date Type Department Care Team (Late st Contact Info) Description 06/30/2023 Refill [facility] MEDICINE 230 [place] [address] Sariah Vickers ANP 230 [place] [address] Neck pain Social History Tobacco Use Types [...] Description 11/12/2024 9:30 AM EDT Clinical Support [address] [address] Azeb Hall, MARTIN 505 [place] [address] 01/11/2025 1:00 PM EST Office Visit [address] [address] Sariah Vickers ANP [address] [place] [address] 02/03/2025 11:00 AM EST Medication Management [address] [address] Yuri Pierre, MikeD [address] [place] [address] documented as of this encounter Goals Goal [...] documented as of this encounter Care Teams Meteorologist Liaison Relationship Specialty Start Date End Date Sariah Vickers ANP 230 [place] [address] PCP - General Family Medicine 09/23/19 Yuri Pierre, MikeD [address] [place] [address] Pharmacist Internal Medicine 05/05/24 Basilio Hall MD [address] [place] [address] Cardiology 05/17/24 Ron Preciado MD [address] [place] [address] Pulmonary Disease 05/17/24 documented as of this encounter
--- OUTSIDE RECORDS SUMMARY | 2024-11-08 12:27 | XMS_ITS | Encounter Summary ---
Author Organization [employer] Address 75 [facility] 7t [place] [address] Care Team Providers Care Caustic Preparer Name Role Phone Sariah Vickers KAYLEE Primary Care Provider [phone] Yuri Pierre PharmD Unavailable [phone] Basilio Hall MD Unavailable [phone] Ron Preciado MD Unavailable [phone] Reason for Visit * Reason Comments Med Refill Encounter Details Date Type Department Care Team (Late st Contact Info) Description 03/04/2023 Refill [facility] 230 [place] [address] Brittney Nava MD 230 [place] [address] Social History Tobacco Use Types Packs/Day Years [...] 11/12/2024 9:30 AM EDT Clinical Support [address] [address] Azeb Hall, MARTIN 505 [place] [address] 01/11/2025 1:00 PM EST Office Visit [address] [address] Sariah Vickers ANP [address] [place] [address] 02/03/2025 11:00 AM EST Medication Management [address] [address] Yuri Pierre, MikeD [address] [place] [address] documented as of this encounter Goals Goal Patient Goal Type Associated Problems Recent Progress Patient-Stated? Author Blood Pressure < 140/90 Blood Pressure 130/84(2024 2:17 PM EDT) No Aida Ragland PharmD Record Your Blood Sugar As Directed General No Aida Ragland, PharmBear Hemoglobin A1c < 7 Result Component 6.6(08/28/202 5 1:54 PM EDT) No Aida Ragland PharmD documented as of this encounter Visit Diagnoses Not on filedocumented in this encounter Care Teams Caustic Preparer Relationship Specialty Start Date End Date Sariah Vickers ANP 230 [place] [address] PCP - General Family Medicine 09/23/19 Yuri Pierre, MikeD 230 [place] [address] Pharmacist Internal Medicine 05/05/24 Basilio Hall MD [address] [place] [id number] Cardiology 05/17/24 Ron Preciado MD [address] [place] [address] Pulmonary Disease 05/17/24 documented as of this encounter
--- OUTSIDE RECORDS SUMMARY | 2024-11-08 12:27 | XMS_ITS | Encounter Summary ---
Author Organization [employer] Address 75 [facility] 7t [place] [address] Care Team Providers Care Patient Support Assistant Name Role Phone Sariah Vickers Primary Care Provider [phone] Yuri Pierre PharmD Unavailable [phone] Basilio Hall MD Unavailable [phone] Ron Preciado MD Unavailable [phone] Reason for Visit * Reason Comments Med Refill Encounter Details Date Type Department Care Team (Late st Contact Info) Description 07/17/2022 Refill [facility] MEDICINE 230 [place] [address] Sariah Vickers ANP 230 [place] [address] Neck pain Social History Tobacco Use Types [...] Description 11/12/2024 9:30 AM EDT Clinical Support [address] [address] Azeb Hall, RN 505 [place] [address] 01/11/2025 1:00 PM EST Office Visit [address] [address] Sariah Vickers ANP [address] [place] [address] 02/03/2025 11:00 AM EST Medication Management [address] [address] Yuri Pierre, Dileep [address] [place] [address] documented as of this encounter Visit Diagnoses Diagnosis Neck pain Cervicalgia documented in this encounter Care Teams Patient Support Assistant Relationship Specialty Start Date End Date Sariah Vickers ANP [address] [place] [address] PCP - General Family Medicine 09/23/19 Yuri Pierre, PharmD [address] [place] [address] Pharmacist Internal Medicine 05/05/24 Basilio Hall MD 596 [place] [address] Cardiology 05/17/24 Ron Preciado MD [address] [place] [address] Pulmonary Disease 05/17/24 documented as of this encounter
--- OUTSIDE RECORDS SUMMARY | 2024-11-08 12:27 | XMS_ITS | Encounter Summary ---
Author Organization [employer] Address 75 [facility] 7t [place] [address] Care Team Providers Care Track Repair Supervisor Name Role Phone Sariah Vickers Primary Care Provider [phone] Yuri Pierre PharmD Unavailable [phone] Basilio Hall MD Unavailable [phone] Ron Preciado MD Unavailable [phone] Reason for Visit * Reason Onset Date Comments Nurse Triage 01/14/2023 Encounter Details Date Type Department Care Team (Late st Contact Info) Description 01/14/2023 Telephone [facility] MEDICINE 230 [place] [address] Sariah Vickers ANP 230 [place] [address] Nurse Triage Social History Tobacco Use Types [...] 01/14/2023 9:26 AM EST Called pt. Via [employer] access representative [phone] Kelly. Pt. States that she has been having a fire feeling in her legs. Its like A burning that goes down her legs . Pt. Unsure if it because of her Diabetes. Pt. Went to [facility] ED for pain on her left [...] at 10am. Will send note to clinical ocular care technologist to have note put in chart . [...] Severe pain now, pt was seen at [facility] on 01/13 for pain in leg. Pt is still symptomatic The caller accepted this outcome Please contact pt at [phone] (airport tower controller needed) documented in this encounter Plan of Treatment Upcoming Encounters Date Type Department Care Team (Late st Contact Info) Description 11/12/2024 9:30 AM EDT Clinical Support [address] [address] Azeb Hall RN 505 [place] [address] 01/11/2025 1:00 PM EST Office Visit [address] [address] Sariah Vickers ANP [address] [place] [address] 02/03/2025 11:00 AM EST Medication Management [address] [address] Yuri Pierre, MikeD [address] [place] [address] documented as of this encounter Goals Goal [...] on filedocumented in this encounter Care Teams Track Repair Supervisor Relationship Specialty Start Date End Date Sariah Vickers ANP [address] [place] [address] PCP - General Family Medicine 09/23/19 Yuri Pierre, MikeD 230 [place], [place] 216[address]40 Pharmacist Internal Medicine 05/05/24 Basilio Hall MD [address] [place], [place] [address] Cardiology 05/17/24 Ron Preciado MD [address] [place] [address] [phone] Pulmonary Disease 05/17/24 documented as of this encounter
--- OUTSIDE RECORDS SUMMARY | 2024-11-08 12:27 | XMS_ITS | Encounter Summary ---
Author Organization [employer] Address 75 [facility] 7t [place] [address] Care Team Providers Care Chief Sustainability Officer Name Role Phone Sariah Vickers Primary Care Provider Yuri Pierre PharmD Unavailable [phone] Basilio Hall MD Unavailable [phone] Ron Preciado MD Unavailable [phone] Reason for Visit * Reason Onset Date Comments Referral 05/17/2022 Encounter Details Date Type Department Care Team (Late st Contact Info) Description 05/17/2022 Telephone [facility] MED[facility]INE 230 [place] [address] Sariah Vickers ANP 230 [place], [place] [phone] Referral Social History Tobacco Use Types Packs/Day [...] guide to vertigo. Please contact pt at [phone] documented in this encounter Plan of Treatment Upcoming Encounters Date Type Department Care Team (Late st Contact Info) Description 11/12/2024 9:30 AM EDT Clinical Support [address] [address] Azeb Hlal RN 505 [place] [address] 01/11/2025 1:00 PM EST Office Visit [address] [address] Sariah Vickers ANP [address] [place] [address] 02/03/2025 11:00 AM EST Medication Management [address] [address] Yuri Pierre, PharmD [address] [place] [address] documented as of this encounter Visit Diagnoses Not on filedocumented in this encounter Care Teams Chief Sustainability Officer Relationship Specialty Start Date End Date Sariah Vickers ANP [address] [place] [address] PCP - General Family Medicine 09/23/19 Yuri Pierre, PharmD [address] [place] [address] Pharmacist Internal Medicine 05/05/24 Basilio Hall MD 596 [place] [address] Cardiology 05/17/24 Ron Preciado MD [address] [place] [address] Pulmonary Disease 05/17/24 documented as of this encounter
--- OUTSIDE RECORDS SUMMARY | 2024-11-08 12:27 | XMS_ITS | Encounter Summary ---
Author Organization [employer] Address 75 [facility] 7t [place] [address] Care Team Providers Care Waste Removalist Name Role Phone Sariah Vickers Primary Care Provider [phone] Yuri Pierre PharmD Unavailable [phone] Basilio Hall MD Unavailable [phone] Ron Preciado MD Unavailable [phone] Reason for Visit * Reason Comments Med Refill Encounter Details Date Type Department Care Team (Late st Contact Info) Description 05/21/2023 Refill [facility] MEDICINE 230 [place] [address] Sariah Vickers ANP 230 [place] [address] Neck pain Social History Tobacco Use Types [...] Description 11/12/2024 9:30 AM EDT Clinical Support [address] [address] Azeb Hall, RN 505 [place] [address] 01/11/2025 1:00 PM EST Office Visit [address] [address] Sariah Vickers ANP [address] [place] [address] 02/03/2025 11:00 AM EST Medication Management [address] [address] Yuri Pierre, PharmD [address] [place] [address] documented as of this encounter Goals Goal [...] Cervicalgia documented in this encounter Care Teams Waste Removalist Relationship Specialty Start Date End Date Sariah Vickers ANP 230 [place] [address] PCP - General Family Medicine 09/23/19 Yuri Pierre, MikeD 230 [place] [address] Pharmacist Internal Medicine 05/05/24 Basilio Hall MD 596 [place] [address] Cardiology 05/17/24 Ron Preciado MD [address] [place] [address] Pulmonary Disease 05/17/24 documented as of this encounter
--- OUTSIDE RECORDS SUMMARY | 2024-11-08 12:27 | XMS_ITS | Encounter Summary ---
Author Organization [employer] Address 75 [facility] 7t [place] [address] Care Team Providers Care X Ray Inspector Name Role Phone Sariah Vickers Primary Care Provider [phone] Yuri Pierre PharmD Unavailable [phone] Basilio Hall MD Unavailable [phone] Ron Preciado MD Unavailable [phone] Reason for Visit * Reason Onset Date Comments Med Refill 03/04/2023 Encounter Details Date Type Department Care Team (Late st Contact Info) Description 03/04/2023 Telephone [facility] MEDICINE 230 [place], [place] [phone] Sariah Vickers ANP 230 [place], [place] [phone] Med Refill Social History Tobacco Use Types [...] 50 MG tablet To be sent to: [facility] [place], [place] - [address] [place] [address] documented in this encounter Plan of Treatment Upcoming Encounters Date Type Department Care Team (Late st Contact Info) Description 11/12/2024 9:30 AM EDT Clinical Support [address] [address] Azeb Hall RN 505 [place] [address] 01/11/2025 1:00 PM EST Office Visit [address] [address] Sariah Vickers, ANP [address] [place] [address] 02/03/2025 11:00 AM EST Medication Management [address] [address] Yuri Pierre, PharmD [address] [place] [address] documented as of this encounter Goals Goal Patient Goal Type Associated Problems Recent Progress Patient-Stated? Author Blood Pressure < 140/90 Blood Pressure 130/84(2024 2:17 PM EDT) No PhanisAida Cheng, PharmD Record Your Blood Sugar As Directed General No Phanis-Gambl Veronica urbinasa, PharmD Hemoglobin A1c < 7 Result Component 6.6( 1:54 PM EDT) No Phanis-Dileepl Aida ubrina, PharmD documented as of this encounter Visit Diagnoses Not on filedocumented in this encounter Care Teams X Ray Inspector Relationship Specialty Start Date End Date Sariah Vickers ANP 230 [place] [address] PCP - General Family Medicine 09/23/19 Yuri Pierre PharmD 230 [place] [address] Pharmacist Internal Medicine 05/05/24 Basilio Hall MD 596 [place] [address] Cardiology 05/17/24 Ron Preciado MD [address] [place] [address] Pulmonary Disease 05/17/24 documented as of this encounter
--- OUTSIDE RECORDS SUMMARY | 2024-11-08 12:27 | XMS_ITS | Encounter Summary ---
Author Organization [employer] Address 75 [facility] 7t [place] [address] Care Team Providers Care Bowling Floor Manager Name Role Phone Sariah Vickers Primary Care Provider [phone] Yuri Pierre PharmD Unavailable [phone] Basilio Hall MD Unavailable [phone] Ron Preciado MD Unavailable [phone] Reason for Visit * Reason Comments Med Refill Encounter Details Date Type Department Care Team (Late st Contact Info) Description 05/09/2023 Refill [facility] 230 [place] [address] Sariah Vickers ANP 230 [place] [address] High cholesterol Social History Tobacco Use Types [...] Description 11/12/2024 9:30 AM EDT Clinical Support [address] [address] Azeb Hall, MARTIN 505 [place] [address] 01/11/2025 1:00 PM EST Office Visit [facility] [address] [place] [address] Sariah Vickers ANP [address] [place] [address] 02/03/2025 11:00 AM EST Medication Management [address] [address] Yuri Pierre, MikeD [address] [place] [address] documented as of this encounter Goals Goal Patient Goal Type Associated Problems Recent Progress Patient-Stated? Author Blood Pressure < 140/90 Blood Pressure 130/84(2024 2:17 PM EDT) No Adia Ragland PharmD Record Your Blood Sugar As Directed General No Aida Ragland PharmD Hemoglobin A1c < 7 Result Component 6.6( 1:54 PM EDT) No Aida Ragland PharmD documented as of this encounter Visit Diagnoses Diagnosis High cholesterol Pure hypercholesterolemia documented in this encounter Care Teams Bowling Floor Manager Relationship Specialty Start Date End Date Sariah Vickers ANP 230 [place] [address] PCP - General Family Medicine 09/23/19 Yuri Pierre, PharmD 230 [place] [address] Pharmacist Internal Medicine 05/05/24 Basilio Hall MD 596 [place], [place] [phone] Cardiology 05/17/24 Ron Preciado MD [address] [place] [address] Pulmonary Disease 05/17/24 documented as of this encounter
--- OUTSIDE RECORDS SUMMARY | 2024-11-08 12:27 | XMS_ITS | Encounter Summary ---
Author Organization [employer] Address 75 [facility] 7t [place] [address] Care Team Providers Care Poultry Hanger Name Role Phone Sariah Vickers Primary Care Provider [phone] Yuri Pierre PharmD Unavailable [phone] Basilio Hall MD Unavailable [phone] Ron Preciado MD Unavailable [phone] Reason for Visit * Reason Comments Med Refill Encounter Details Date Type Department Care Team (Late st Contact Info) Description 03/07/2023 Refill [facility] MEDICINE 230 [place] [address] Sariah Vickers ANP 230 [place] [address] Vertigo Social History Tobacco Use Types Packs/Day [...] Description 11/12/2024 9:30 AM EDT Clinical Support [address] [address] Azeb Hall, MARTIN 505 [place] [address] 01/11/2025 1:00 PM EST Office Visit [facility] [address] [place] [address] Sariah Vickers ANP [address] [place] [address] 02/03/2025 11:00 AM EST Medication Management [address] [address] Yuri Pierre, MikeD [address] [place] [address] documented as of this encounter Goals Goal [...] giddiness documented in this encounter Care Teams Poultry Hanger Relationship Specialty Start Date End Date Sariah Vickers ANP 230 [place] [address] PCP - General Family Medicine 09/23/19 Yuri Pierre, MikeD 230 [place] [address] Pharmacist Internal Medicine 05/05/24 Basiilo Hall MD [address] [place] [address] [phone] Cardiology 05/17/24 Ron Preciado MD [address] [place] [address] Pulmonary Disease 05/17/24 documented as of this encounter
--- OUTSIDE RECORDS SUMMARY | 2024-11-08 12:27 | XMS_ITS | Encounter Summary ---
Author Organization [employer] Address 75 [facility] 7t [place] [address] Care Team Providers Care Veneer Grader Name Role Phone Sariah Vickers Primary Care Provider Yuri Pierre PharmD Unavailable [phone] Basilio Hall MD Unavailable [phone] Ron Preciado MD Unavailable [phone] Reason for Visit * Reason Comments Med Refill Encounter Details Date Type Department Care Team (Late st Contact Info) Description 05/23/2024 Refill [facility] [address] [place] [address] Sariah Vickers ANP 230 [place] [address] Cervicalgia Social History Tobacco Use Types Packs/Day [...] 11/12/2024 9:30 AM EDT Clinical Support [address] [address] Azeb Hall RN 505 [place] [address] 01/11/2025 1:00 PM EST Office Visit [address] [address] Sariah Vickers ANP [address] [place] [address] 02/03/2025 11:00 AM EST Medication Management [address] [address] Yuri Pierre, MikeD [address] [place] [address] documented as of this encounter Goals Goal [...] documented as of this encounter Care Teams Veneer Grader Relationship Specialty Start Date End Date Sariah Vickers ANP 230 [place] [address] PCP - General Family Medicine 09/23/19 Yuri Pierre, MikeD [address] [place] [address] Pharmacist Internal Medicine 05/05/24 Basilio Hall MD 596 [place] [address] Cardiology 05/17/24 Ron Preciado MD [address] [place] [address] Pulmonary Disease 05/17/24 documented as of this encounter
--- OUTSIDE RECORDS SUMMARY | 2024-11-08 12:27 | XMS_ITS | Encounter Summary ---
Author Organization [email or web address] Address 75 [facility] 7t [place] [address] Care Team Providers Care Patternmaker Metal Bench Name Role Phone Sariah Vickers Primary Care Provider [phone] Yuri Pierre PharmD Unavailable [phone] Basilio Hall MD Unavailable [phone] Ron Preciado MD Unavailable [phone] Reason for Visit * Reason Onset Date Comments Med Refill Durable Medical Equipment 07/15/2023 Foam M attress/Raised Toilet Seat Encounter Details Date Type Department Care Team (Late st Contact Info) Description 07/15/2023 Refill [facility] MEDICINE 230 [place], [place] [phone] Sariah Vickers ANP 230 [place] [address] Neck pain Social History Tobacco Use Types [...] Please see request sent via email by [facility] Electrical Superintendent Arlin Baker. Please Advise. Good morning, Our [...] ([facility] [place] st Contact Info) Description 11/12/2024 9:30 AM EDT Clinical Support [address] [address] Azeb Hall, RN 505 [place] [address] 01/11/2025 1:00 PM EST Office Visit [address] [address] Sariah Vickers ANP [address] [place] [address] 02/03/2025 11:00 AM EST Medication Management [address] [address] Yuri Pierre, PharmD [address] [place] [address] documented as of this encounter Goals Goal Patient Goal Type Associated Problems Recent Progress Patient-Stated? Author Blood Pressure < 140/90 Blood Pressure 130/84(2024 2:17 PM EDT) No Aida Ragland PharmD Record Your Blood Sugar As Directed General No Aida Ragland PharmD Hemoglobin A1c < 7 Result Component 6.6( 1:54 PM EDT) No Aiad Ragland PharmD documented as of this encounter Visit Diagnoses Diagnosis Neck pain Cervicalgia documented in this encounter Additional Health Concerns Assessment Noted Time PHQ-9 Depression Total Score: 2 06/23/19 24 2:10 PM EDT documented as of this encounter Care Teams Patternmaker Metal Bench Relationship Specialty Start Date End Date Sariah Vickers ANP [address] [place] [address] PCP - General Family Medicine 09/23/19 Yuri Pierre, PharmD [address] [place] [address] Pharmacist Internal Medicine 05/05/24 Basilio Hall MD 596 [place] [address] Cardiology 05/17/24 Ron Preciado MD [address] [place] [address] Pulmonary Disease 05/17/24 documented as of this encounter
== END 2024-11-08 10:24 | disposition home or self-care (01) ==
LOC: HO.HMGAL 10:07
PROVIDERS: PCP Nurse Practitioner Primary Care; Visit Provider Registered Nurse Emergency
DX: J30.89 Other allergic rhinitis (principal)
CPT/HCPCS: 95117; 95165

== ENCOUNTER 2024-11-12 12:43 | Outpatient (AMB) | payer OTHER, SELFPAY ==
--- OUTSIDE RECORDS SUMMARY | 2024-10-01 11:00 | XMS_ITS | Encounter Summary ---
Author Organization [employer] Address [address] [facility] [address] [place] [address] Care Team Providers Care Tile Grader Name Role Phone Sariah Vickers KAYLEE Primary Care Provider [phone] Yuri Pierre PharmD Unavailable [phone] Basilio Hall MD Unavailable [phone] Ron Preciado MD Unavailable [phone] Reason for Visit * Reason Comments SPECIALTY PERSON Encounter Details Date Type Department Care Team (Late st Contact Info) Description 10/01/2024 11:00 AM EDT Clinical Support [facility] MEDICINE [address] [place] [address] Azeb Hall, MARTIN [address] [place] [address] Neck pain Social History Tobacco Use Types Packs/Day Years Used Date Smoking Tobacco: Former Cigarettes 0.3 7 2 - 2016 Passive Smoke Exposure: Past Smokeless Tobacco: Never Alcohol Use Standard Drinks/Week Comments Not Currently 0 (1 standard drink = 0.6 oz pur e alcohol) Depression Answer Date Recorded Patient Health Questionnaire-9 Score 11 10/19/2024 Patient Health Questionnaire-9 Score 11 10/19/2024 Last PHQ-9: Questionnaire Data Not on file 0 10/19/2024 Housing Stability Answer Date Recorded What is your housing situation today? I have rodrigo kent 07/15/[address] you li ve. Do you have problems with any of the following? None of the above 07/15/2024 Food Insecurity Answer Date Recorded Within the past 12 months, y ou worried that your food would run out before you got money to buy more: Never True 07/15/2024 Within the past 12 months,th e food you bought just didn't last and you didn't have enough money to get more: Never True Transportation Answer Date Recorded In the past 12 months, has l ack of transportation kept you from medical appts, meetings, work or from getting things needed for daily living? No 07/15/2024 Utilities Answer Date Recorded In the past 12 months, has t he electric, gas, oil or water company threatened to shut off services in your home? No 07/15/2024 Depression Answer Date Recorded Patient Health Questionnaire-2 Score 4 10/19/2024 Internet Access Answer Date Recorded Internet Access Q1 Yes 07/15/2024 Internet Access Q2 Not on file 07/15/2024 Comments Unknown Sex and Gender Information Value Date Recorded Sex Assigned at Female 12/17/2021 10:16 AM EDT Legal Sex Female 10:16 AM EDT Gender Identity Female 12/17/2021 10:16 AM EDT Sexual Orientation Lesbian or Strong 12/17/2021 10 :16 AM EDT documented as of this encounter Functional Status * Over the past 2 weeks, how often have you been bothered by any of the following problems? Question Answer Date of Assessment Author Patient Health Questionnaire -2 Score 4 10/19/2024 5:30 PM EDT Debbie Bowen * Little interest or pleasure in doing things Answer Date of Assessment Author More than half the days 10/19/2024 5:30 PM EDT Cynthia Elizondo * Feeling down, depressed, or hopeless Answer Date of Assessment Author More than half the days 10/19/2024 5:30 PM EDT Cynthia Elizondo * Trouble falling or staying asleep, or sleeping too much Answer Date of Assessment Author More than half the days 10/19/2024 5:30 PM EDT Cynthia Elizondo * Feeling tired or having little energy Answer Date of Assessment Author More than half the days 10/19/2024 5:30 PM EDT Cynthia Elizondo * Poor appetite or overeating Answer Date of Assessment Author Not at all 10/19/2024 5:30 PM EDT Cynthia Fuentes * Feeling bad about yourself - or that you are a failure or have let yourself or your family down Answer Date of Assessment Author Several days 10/19/2024 5:30 PM EDT Cynthia Fuentes * Trouble concentrating on things, such as reading the newspaper or watching television Answer Date of Assessment Author Several days 10/19/2024 5:30 PM EDT Cynthia Fuentes * Moving or speaking so slowly that other people could have noticed? Or the opposite - being so fidgety or restless that you have been moving around a lot more than usual. Answer Date of Assessment Author Several days 10/19/2024 5:30 PM EDT Cynthia Fuentes * Thoughts that you would be better off or hurting yourself in some way Answer Date of Assessment Author Not at all 10/19/2024 5:30 PM EDT Cynthia Fuentes * Patient Health Questionnaire-9 Score Answer Date of Assessment Author 11 10/19/2024 5:30 PM EDT Cynthia Fuentes * How difficult have these problems made it for you to do your work, take care of things at home, or get along with other people? Answer Date of Assessment Author Somewhat difficult 10/19/2024 5:30 PM EDT Cynthia Bowen documented as of this encounter Progress Notes * Azeb Hall RN - 10/01/2024 11:00 AM EDT aSUBJECTIVE: Nuvia Ho is a 64 y.o. year old female who presents for [facility] Preferred language for medical information: [place] Islander Interpreted needed: yes, [place] interpreting Nuvia Ho does report adherence to Tramadol (Ultram) 50 mg, take 1 tablet every 12 hours PRN, last refilled 09/24/24. The patient last took Tramadol (Ultram) on: 10/01/24 Medication is: 70 % effective at alleviating pain. OBJECTIVE: AUTOMATIC LATHE TENDER checked: 10/01/2024 Pill count completed for Tramadol (Ultram), count today is 36 , anticipated count should be 45, this is NOT as expected. PCP notified. Vital Signs Pain Score: 10-Worst pain ever Pain Loc: Back Pain Education: Yes Additional pain site: knees, ankles Last PCP visit: 5/29/25 BPI completed on: 02/04/24 , pain severity score: 7, activity interference score: 9 BPI completed on: 10/01/24 , pain severity score: 9, activity interference score: 5 Controlled substance agreement signed: Controlled Substance Agreement 02/04/2024 SPECIALTY PERSON Tier: 2 Current Medications[1] Smoking status: Denies ETOH use: Denies Illicit substances: Denies Marijuana use: No Lab Results Component Value Date POCTHC Negative 10/01/2024 POCCOCAINEUR Negative 10/01/2024 POCOPIATEUR Negative 10/01/2024 DOAUR Negative 10/01/2024 POCAMPHETAMI Negative 10/01/2024 POCBENZODIUR Negative 10/01/2024 POCBARBSCRN Negative 10/01/2024 POCMETHADOUR Negative 10/01/2024 POCBUPSCRN Negative 10/01/2024 POCTCAUR Negative 10/01/2024 POCMDMAUR Negative 10/01/2024 POCOXYCODONE Negative 10/01/2024 POCPHENCYCUR Negative 10/01/2024 PROPOXUR Negative 10/01/2024 FENTANYLURIN Negative 10/01/2024 ASSESSMENT: Encounter Diagnosis Name Primary? Neck pain PLAN: Information on pain group given: Previously discussed Information on acupuncture given: Previously discussed Narcan education provided: Previously discussed Narcan prescription: active Nuvia Ho will continue taking medication as prescribed and follow up at the next SPECIALTY PERSON visit or sooner if needed. Nuvia Ho has verbalized understanding of care plan. Future Appointments Date Time Provider Department Center 10/01/2024 11:00 AM Azeb Hall RN MEDICINE [facility] 10/14/2024 1:30 PM KAYLEE Lopez MEDICINE [facility] 11/05/2024 2:30 PM Hallie Tapia MD MEDICINE [facility] 11/12/2024 9:30 AM Azeb Hall RN MEDICINE [facility] 02/03/2025 11:00 AM Yuri Pierre PharmD MEDICINE [facility] Azeb Hall RN [1] Current Outpatient Medications: acetaminophen (Tylenol) 325 MG tablet, TAKE 1 TO 2 TABLETS BY MOUTH EVERY 6 HOURS NEEDED, Disp: 120 tablet, Rfl: 0 Alcohol Swabs (Alcohol Prep) 70 % pads, USE DAILY DIRECTED, Disp: 100 each, Rfl: 11 amLODIPine (Norvasc) 10 MG tablet, TAKE 1 TABLET BY MOUTH EVERY EVENING, Disp: 90 tablet, Rfl: 1 BD Pen Needle Lorna U/F 32G X 4 MM misc, USE DIRECTED THREE TIMES DAILY, Disp: 100 each, Rfl: 5 busPIRone (Buspar) 15 MG tablet, Take 1 tablet by mouth every 6 (six) hours during the day., Disp: , Rfl: cetirizine (ZyrTEC) 10 MG tablet, Take 1 tablet (10 mg) by mouth Once per day., Disp: 30 tablet, Rfl: 11 clonazePAM (KlonoPIN) 1 MG tablet, , Disp: , Rfl: Combivent Respimat 20-100 MCG/ACT inhaler, , Disp: , Rfl: Continuous Glucose Airline Flight Attendant (FreeStyle Jalil 3 [place]) device, 1 each Once per day. Use as directedfor CGM, Disp: 1 each, Rfl: 0 Continuous Glucose Sensor (FreeStyle Jalil 3 Plus Sensor) misc, 1 each every 15 days. Apply 1 every15 days as directed for CGM, Disp: 2 each, Rfl: 11 Diclofenac Sodium 1 % gel, APPLY 2 GRAMS TOPICALLY TO AFFECTED AREA(S) ONCE DAILY NEEDED FOR PAIN, Disp: 100 g, Rfl: 1 docusate sodium (Colace) 100 MG capsule, Take 1 capsule by mouth every 12 (twelve) hours., Disp: , Rfl: enalapril (Vasotec) 20 MG tablet, TAKE 1 TABLET BY MOUTH EVERY MORNING, Disp: 30 tablet, Rfl: 1 fluticasone (Flonase) 50 MCG/ACT nasal spray, INSTILL 2 SPRAYS IN EACH NOSTRIL ONCE DAILY IN THE MORNING, Disp: 16 g, Rfl: 3 Fluticasone-Salmeterol 250-50 MCG/ACT aerosol powder , INHALE 1 PUFF BY MOUTH TWICE DAILY, RINSE MOUTH AFTER USING., Disp: 60 each, Rfl: 5 gabapentin (Neurontin) 400 MG capsule, TAKE 1 CAPSULE BY MOUTH AT BEDTIME, Disp: 30 capsule, Rfl: 2 glucagon (Baqsimi Two Pack) 3 MG/DOSE nasal powder, Administer 3 mg into affected nostril(s) 1 (one) time if needed for low blood sugar for up to 1 dose. USE 1 SPRAY (3MG) IN ONE NOSTRIL FOR A PATIENT WITH SEVERE HYPOGLYCEMIA WHO IS NOT RESPONSIVE AND UNABLE SELF-TREAT WITH GLUCOSE. AFTERWARDS TURNON SIDE. MAY REPEAT IN 15MINUTES IF PATIENT DOES NOT RESPOND., Disp: 2 each, Rfl: 1 glucose 4 g chewable tablet, CHEW 4 TABLETS BY MOUTH NEEDED LOW FOR BLOOD SUGAR, Disp: 50 tablet, Rfl: 12 glucose blood (FREESTYLE LITE) test strip, 1 strip at bed time., Disp: , Rfl: guaiFENesin (Mucinex) 600 MG 12 hr tablet, Take 1 tablet (600 mg) by mouth if needed in the morningand at bedtime for cough or congestion. Do not crush, chew, or split., Disp: 30 tablet, Rfl: 0 hydrocortisone (Anusol-HC) 2.5 % rectal cream, APPLY 1 APPLICATORFUL RECTALLY TWICE DAILY FOR FOR HEMORRHOIDS, Disp: , Rfl: insulin lispro (HumaLOG KWIKPEN) 100 UNIT/ML injection, Take 4-6 units as needed if BG high while taking prednisone; As needed as directed by provider, Disp: 6 mL, Rfl: 1 ipratropium-albuterol (Duo-Neb) 0.5-2.5 mg/3 mL nebulizer solution, INHALE 1 AMPULE USING A NEBULIZER EVERY 6 HOURS NEEDED, Disp: 90 mL, Rfl: 5 Ketotifen Fumarate ( Ketotifen Fumarate) 0.035 % solution, Administer 1 drop into affected eye(s)2 times daily., Disp: 10 mL, Rfl: 5 Lactobacillus-Inulin ([facility]) capsule, , Disp: , Rfl: levothyroxine (Synthroid, Levoxyl) 75 MCG tablet, TAKE 1 TABLET BY MOUTH EVERY MORNING, Disp: 90 tablet, Rfl: 4 lidocaine (Lidoderm) 5 % patch, APPLY 1 PATCH TOPICALLY TO SKIN, LEAVE ON FOR 12 HOURS AND OFF FOR 12 HOURS DIRECTED, Disp: 30 patch, Rfl: 1 metoclopramide (Reglan) 5 MG tablet, Take 1 tablet by mouth every 6 (six) hours during the day., Disp: , Rfl: Misc. Devices (Pulse Oximeter For Finger) misc, 1 each 2 times daily., Disp: 1 each, Rfl: 0 montelukast (Singulair) 10 MG tablet, TAKE 1 TABLET BY MOUTH EVERY EVENING, Disp: 90 tablet, Rfl: 1 Multiple Vitamins-Minerals (CertaVite/Antioxidants) tablet, TAKE 1 TABLET BY MOUTH EVERY MORNING, Disp: 90 tablet, Rfl: 3 naloxone (Narcan) 4 mg/0.1 mL nasal spray, Administer 1 spray (4 mg) into affected nostril(s) if needed for opioid reversal., Disp: 2 each, Rfl: 0 omeprazole (PriLOSEC) [address] capsule, Take 1 capsule by mouth every 12 (twelve) hours., Disp: , Rfl: plecanatide (Trulance) tablet tablet, Take 1 tablet by mouth at bed time., Disp: , Rfl: potassium chloride CR (Klor-Con M20) 20 MEQ ER tablet, TAKE 1 TABLET BY MOUTH TWICE DAILY IN THE MORNING AND IN THE EVENING, Disp: 180 tablet, Rfl: 1 predniSONE (Deltasone) 20 MG tablet, Take 2 tablets (40 mg) by mouth Once per day., Disp: 10 tablet, Rfl: 0 pyridoxine (Vitamin B-6) 100 MG tablet, , Disp: , Rfl: risperiDONE (RisperDAL) 0.5 MG tablet, Take 1 tablet by mouth in the morning and 1 tablet in the evening., Disp: , Rfl: semaglutide (Ozempic) 2 MG/1.5ML solution pen-injector, Inject 0.5 mg under the skin 1 (one) time per week., Disp: 1 each, Rfl: 12 senna (Senokot) 8.6 MG tablet, TAKE 2 TABLETS BY MOUTH EVERY DAY AT BEDTIME FOR CONSTIPATION, Disp:180 tablet, Rfl: 0 Sodium Fluoride (PreviDent 5000 Booster Plus) 1.1 % paste, Apply 1 Application. to teeth 2 times daily., Disp: 112 g, Rfl: 3 tiotropium (Spiriva HandiHaler) 18 MCG inhalation capsule, Place 1 capsule into inhaler and inhale at bed time., Disp: , Rfl: traMADol (Ultram) 50 MG tablet, TAKE 1 TABLET BY MOUTH TWICE DAILY IN THE MORNING AND AT BEDTIME ASNEEDED FOR SEVERE PAIN, Disp: 60 tablet, Rfl: 0 TRUEplus Lancets 33G misc, TEST BLOOD SUGAR FOUR TIMES DAILY, Disp: 200 each, Rfl: 5 Ventolin HFA 108 (90 Base) MCG/ACT inhaler, INHALE 2 PUFFS BY MOUTH EVERY 4 TO 6 HOURS NEEDED, Disp: 18 g, Rfl: 2 Xolair 150 MG/ML injection, Reconstitute as directed and inject subcutaneously once weekly (administered in office), Disp: , Rfl: zolpidem (Ambien) 10 MG tablet, Take 1 tablet by mouth in the morning., Disp: , Rfl: documented in this encounter Plan of Treatment Upcoming Encounters Date Type Department Care Team (Late st Contact Info) Description 11/17/2024 9:30 AM EDT Medication Management [address] [address] Yuri Pierre, Dileep [address] [place] [id number] 01/07/2025 9:30 AM EST Clinical Support [address] [address] Azeb Hall, MARTIN [address] [place] [address] 01/11/2025 1:00 PM EST Office Visit [address] [address] Sariah Vickers ANP [address] [place] [id number] 02/03/2025 11:00 AM EST Medication Management [address] [address] Yuri Pierre, PharmD [address] [place] [phone] documented as of this encounter Goals Goal Patient Goal Type Associated Problems Recent Progress Patient-Stated? Author Blood Pressure < 140/90 Blood Pressure 132/88(2024 8:49 AM EDT) No Aida Ragland PharmD Record Your Blood Sugar As Directed General No Aida Ragland PharmD Hemoglobin A1c < 7 Result Component 6.6( 1:54 PM EDT) No Aida Ragland PharmD documented as of this encounter Procedures Procedure Name Priority Date/Time Associated Diagnosis Comments POCT FRANKLIN-14 URINE DRUG SCREEN Routine 10/01/2024 10:43 AM EDT Neck pain documented in this encounter Results * POCT FRANKLIN-14 Urine Drug Screen (10/01/2024 10:43 AM EDT) THC Negative Negative Cocaine Screen, Urine Negative Negative Opiate Screen, Urine Negative Negative Methamphetamine Screen Urine Negative Negative Amphetamine Screen, Urine Negative Negative Benzodiazepines Screen, Urine Negative Negative Barbiturate Screen, Urine Negative Negative Methadone Screen, Urine Negative Negative Buprenophine Screen, Urine Negative Negative TCA, Urine Negative Negative MDMA Urine Negative Negative ng/mL Oxycodone Screen, Urine Negative Negative Phencyclidine (PCP), Urine Negative Negative Propoxyphene, Urine Negative Negative Fentanyl, Urine Negative Negative Urine Urine specimen obtained by clean catch procedure / Unknown 10/01/2024 10:43 AM EDT Narrative Azeb Hall RN - 10/01/2024 10:43 AM EDT .UTOX cup Lot#[id number] Exp. 11/23/25 Internal Pass Control Sariah PAGE POINT OF CARE TEST ENTER/EDIT OR DERABLES Final Result documented in this encounter Visit Diagnoses Diagnosis Neck pain Cervicalgia documented in this encounter Additional Health Concerns Assessment Noted Time PHQ-9 Depression Total Score: 12 024 2:58 PM EDT documented as of this encounter Care Teams Tile Grader Relationship Specialty Start Date End Date Sariah Vickers ANP [address] [place] [address] PCP - General Family Medicine 09/23/19 Yuri Pierre PharmD [address] [place] [address] Pharmacist Internal Medicine 05/05/24 Basilio Hall MD [address] [place] [address] Cardiology 05/17/24 Ron Preciado MD [address] [place] [phone] Pulmonary Disease 05/17/24 documented as of this encounter
--- OUTSIDE RECORDS SUMMARY | 2024-11-09 09:00 | XMS_ITS | Encounter Summary ---
Author Organization [employer] Address 75 [facility] 7t [place] [address] Care Team Providers Care Sound Installation Worker Name Role Phone Sariah Vickers KAYLEE Primary Care Provider [phone] Yuri Pierre PharmD Unavailable [phone] Basilio Hall MD Unavailable [phone] Ron Preciado MD Unavailable [phone] Reason for Visit * Reason Comments low sugars Encounter Details Date Type Department Care Team (Latest Contact Info) Description 11/09/2024 9:00 AM EDT Office Visit [facility] 230 [place], [place] [phone] Chava Presley MD 230 [place], [place] [phone] Type 2 diabetes mellitus with hyperlipidemia (CMS/HCC) (Primary Dx) Social History Tobacco Use [...] the past 12 months, has t he [employer], gas, oil or water company threatened to [...] Sign Reading Time Taken Comments Blood Pressure 132/88 11/09/2024 8:49 AM EDT Pulse 81 11/09/2024 8:49 AM EDT Temperature 36.9 C (98.4 F) 11/09/2024 8:49 AM EDT Respiratory Rate 22 11/09/2024 8:49 AM EDT Oxygen Saturation 95% 11/09/2024 8:49 AM EDT Inhaled Oxygen Concentration - - Weight - - Height - - Body Mass Index - - documented in this encounter Progress Notes * Chava Presley MD - 11/09/2024 9:00 AM EDT Subjective Patient ID: Nuvia Ho is a 64 y.o. female. Marine Water Tender: Jani. HPI From yesterday's [facility] telephone triage note: Pt. States that she has been having very low blood sugars every day 49, 59. Pt. Is also doing Ozempic which makes her not have a big appetite. Pt. Did take Her Glucose 4mg 4 tablets and some orange juice and it brought her blood sugar back up to 103 but, this has been happening daily for a couple weeks now. Pt. Does not feel dizzy at present but, did feel dizzy at time that blood sugars were low and did have an ambulance come with paramedics to make sure she was ok. Pt. Blood sugar was steady at time and there was no need to go to ED per paramedics. Nuvia's only hypoglycemic medication is Ozempic that she takes every Friday, which was 3 days ago. She did not eat breakfast today, and has no hypoglycemia symptoms now. Her continuous glucose monitor is reading 63 in exam room and at the same time we checked a urtlo-vc-wizl blood glucose which was 120. Lives with son. Former smoker. Not employed. Patient Active Problem List Diagnosis Date Noted Vaginal bleeding 11/03/2024 Chest discomfort 06/09/2024 Long-term current use of opiate analgesic 04/23/2024 Panniculitis affecting sacrum 02/23/2024 Abnormal ultrasound of kidney 02/13/2024 Cellulitis of labia 02/13/2024 Leg pain 02/13/2024 Osteoarthritis of first carpometacarpal (CMC) joint of one hand 02/13/2024 Small bowel motility disorder 02/13/2024 Smoker 02/13/2024 Tear of medial meniscus of left knee 02/13/2024 Trigger finger of left thumb 02/13/2024 Bilateral renal cysts 02/13/2024 Kidney stone on left side 02/13/2024 Moderate episode of recurrent major depressive disorder (CMS/HCC) 09/25/2023 Excessive attrition of teeth, generalized 09/12/2023 Right bundle branch block 09/04/2023 Gingival recession, generalized 09/18/2022 Dental calculus 08/12/2022 Allergic rhinitis 07/31/2022 Atypical chest pain 07/31/2022 Bilateral knee pain 07/31/2022 Calculus of kidney 07/31/2022 Carpal tunnel syndrome of right wrist 07/31/2022 Chronic idiopathic constipation 07/31/2022 Chronic SI joint pain 07/31/2022 Ectatic aorta (CMS/HCC) 07/31/2022 Hemorrhoids 07/31/2022 Environmental allergies 07/31/2022 High [...] veins of left lower extremity with inflammation 07/31/2022 Depression with anxiety 07/31/2022 PTSD (post-traumatic stress disorder) 07/31/2022 Fibromyalgia 07/31/2022 Asthma-COPD overlap syndrome (CMS/HCC) 07/31/2022 Right foot pain 06/21/2022 Paresis of one side of face 01/09/2022 Paresthesia 01/09/2022 Aneurysm of left internal carotid artery 06/07/2021 Type 2 diabetes mellitus with hyperlipidemia (CMS/HCC) 02/02/2016 Gastroesophageal reflux disease 01/19/2015 Increased immunoglobulin 01/19/2015 Insomnia disorder with non-sleep disorder mental comorbidity 01/19/2015 Neck pain 01/19/2015 Anxiety state 08/12/2011 Chronic obstructive lung disease (CMS/HCC) 08/12/2011 Constipation 08/12/2011 Essential hypertension 08/12/2011 Mixed anxiety and depressive disorder 08/12/2011 The following portions of the chart were reviewed this encounter and updated as appropriate: Review of Systems Constitutional: Negative for fever. Respiratory: Negative for shortness of breath. Cardiovascular: Negative for chest pain. Gastrointestinal: Negative for abdominal pain. Skin: Negative for rash. Neurological: Negative for headaches. Objective Physical Exam Constitutional: Appearance: Normal appearance. HENT: Nose: Nose normal. Mouth/Throat: Mouth: Mucous membranes [...] Mood normal. Behavior: Behavior normal. Procedures Assessment/Plan Type 2 diabetes mellitus with hyperlipidemia ([facility]) I spoke with Yuri from pharmacy who sees Nuvia for CDTM. We discussed that it appears that her continuous glucose monitor is reading about 60 points less than the actual swlrw-ku-[id number] glucose. She was advised to stop the Ozempic and he will call for an appointment to be seen next week. I prescribed a new freestyle glucose monitor to use for now instead of the continuous glucose monitor, she has supplies at home. I refilled her 40% glucose gel to use as needed. Return to clinic for concerns or if the freestyle glucometer has low readings. documented in this encounter Plan of Treatment Upcoming Encounters Date Type Department Care Team (Late st Contact Info) Description 11/17/2024 9:30 AM EDT Medication Management [address] [address] Yuri Pierre, PharmD [address] [place] [address] 01/07/2025 9:30 AM EST Clinical Support [address] [address] Azeb Hall, MARTIN 505 [place] [address] 01/11/2025 1:00 PM EST Office Visit [address] [address] Sariah Vickers ANP [address] [place] [address] 02/03/2025 11:00 AM EST Medication Management [address] [address] Yuri Pierre, PharmD [address] [place] [address] documented as of this encounter Goals Goal [...] 2 diabetes mellitus with hyperlipidemia (CMS/HCC)- Primary documented in this encounter Additional Health Concerns Assessment Noted Time PHQ-9 Depression Total Score: 11 025 5:30 PM EDT documented as of this encounter Care Teams Sound Installation Worker Relationship Specialty Start Date End Date Sariah Vickers ANP 230 [place] [address] PCP - General Family Medicine 09/23/19 Yuri Pierre, MikeD [address] [place] [address] Pharmacist Internal Medicine 05/05/24 Basilio Hall MD 596 [place] [address] Cardiology 05/17/24 Ron Preciado MD [address] [place] [address] Pulmonary Disease 05/17/24 documented as of this encounter
--- OUTSIDE RECORDS SUMMARY | 2024-11-10 15:30 | XMS_ITS | Encounter Summary ---
Author Organization [employer] Address 75 [facility] 7t [place] [address] Care Team Providers Care Station Installer And Repairer Name Role Phone Sariah Vickers KAYLEE Primary Care Provider [phone] Yuri Pierre PharmD Unavailable [phone] Basilio Hall MD Unavailable [phone] Ron Preciado MD Unavailable [phone] Reason for Visit * Reason Comments Immunizations Encounter Details Date Type Department Care Team (Late st Contact Info) Description 11/10/2024 3:30 PM EDT Immunization [facility] 230 [place] [address] Yohana Quinn RN Encounter for immunization Social History Tobacco Use Types Packs/Day Years [...] as of this encounter Progress Notes * Yohana Quinn RN - 11/10/2024 3:30 PM EDT Pt presented for the Flu vaccine. The immunization was given in the right deltoid and the pt tolerated it well. documented in this encounter Plan of Treatment Upcoming Encounters Date Type Department Care Team (Late st Contact Info) Description 11/17/2024 9:30 AM EDT Medication Management [address] [address] Yuri Pierre, PharmD [address] [place] [address] 01/07/2025 9:30 AM EST Clinical Support [address] [address] Azeb Hall RN [address] [place] [address] 01/11/2025 1:00 PM EST Office Visit [address] [address] Sariah Vickers, KAYLEE [address] [place] [address] [phone] 02/03/2025 11:00 AM EST Medication Management [facility] 230 [place] [address] Yuri Pierre, PharmD 230 [place] [address] documented as of this encounter Goals Goal Patient Goal Type Associated Problems Recent Progress Patient-Stated? Author Blood Pressure < 140/90 Blood Pressure 132/88(2024 8:49 AM EDT) No Phanis-Gambl Aida urbina, PharmD Record Your Blood Sugar As Directed General No Phanis-Aida Medina PharmD Hemoglobin A1c < 7 Result Component 6.6( 1:54 PM EDT) No Phanis-Dileepl Aida urbina PharmD documented as of this encounter Visit Diagnoses Diagnosis Encounter for immunization documented in this encounter Additional Health Concerns Assessment Noted Time PHQ-9 Depression Total Score: 11 025 5:30 PM EDT documented as of this encounter Care Teams Station Installer And Repairer Relationship Specialty Start Date End Date Sariah Vickers ANP 230 [place] [address] PCP - General Family Medicine 09/23/19 Yuri Pierre, PharmD 230 [place] [address] Pharmacist Internal Medicine 05/05/24 Basilio Hall MD 596 [place] [address] Cardiology 05/17/24 Ron Preciado MD [address] [place] [address] Pulmonary Disease 05/17/24 documented as of this encounter
--- NOTE | 2024-11-12 12:45 | A.OFFVIS_ITS ---
Vital Signs 11/12/24 12:56 Height 5 ft 4 in Weight 205 lb 0.478 oz BMI 35.2 BP 110/71 Blood Pressure Location Rt brachial Position Sitting Pulse 78 Intake Visit Reasons: Follow up labs Intake Note: Nuvia presents to in office follow up of labs. CC: Patient states that she is doing well. Inventory Control Planner Required: Yes Inventory Control Planner Language: Samoan Accompanied by: Self / Same As Patient Allergies Fish Containing Products Allergy (Intermediate, Verified 11/12/24 13:05) Swelling vancomycin Allergy (Intermediate, Verified 11/12/24 13:05) Rash aspirin (Aspirin) Allergy (Mild, Verified 11/12/24 13:05) ITCHY THROAT azithromycin Allergy (Unknown, Verified 11/12/24 13:05) Unknown naproxen Allergy (Unknown, Verified 11/12/24 13:05) Unknown simvastatin Allergy (Unknown, Verified 11/12/24 13:05) Unknown onion (ONION) Adverse Reaction (Mild, Verified 11/12/24 13:05) RED FACE HPI HPI Follow up labs: Details: Assessment & Plan (1) Uncontrolled type 2 diabetes mellitus with hyperglycemia, with long-term current use of insulin: Code(s): E11.65 - Type 2 diabetes mellitus with hyperglycemia; Z79.4 - termite control technician (current) use of insulin Category: Medical (2) Transaminitis: Comment: sudden increase over her baseline Code(s): R74.01 - Elevation of levels of liver transaminase levels Category: Medical (3) Elevated antinuclear antibody (REX) level: Code(s): R76.8 - Other specified abnormal immunological findings in serum Category: Medical (4) Nausea: Code(s): R11.0 - Nausea Category: Medical (5) OKEEFE (nonalcoholic steatohepatitis): Comment: LABS; 07/2011 LIver panel is totally normal, hemoglobin A1c covers around 7, alpha fetoprotein tumor marker at baseline is 1.6, 05/2018 autoimmune workup is negative, ferritin is normal at 49, she is immune to hepatitis a B and negative for hepatitis C. LABS ARE ELEVATED AFTER ANTIBIOTIC TREATMENT 05/30/24 13:17 WBC 6.0 Hgb 14.6 Hct 42.3 Plt Count 269 Estimated GFR > 60 Total Bilirubin 0.5 AST 197 H ALT 243 H Alkaline Phosphatase 164 H CURRENT LABS 05/31/2503/ 13:1715:0810:18 Plt Count 269 Total Bilirubin AST 61 H ALT 72 H Alkaline Phosphatase 122 H Lipase REX Screen POSITIVE A REX Titer 1:1280 H REX Pattern Nuclear, Homogeneous A Anti-Mitochondrial Ab NEGATIVE Anti-Smooth Muscle Ab 69 H Hepatitis A IgM Ab Nonreactive Hep Bs Antigen Negative Hep Bs Antibody REACTIVE Hep B Core Total Ab Nonreactive Hepatitis C Ab (EIA) Nonreactive Monoscreen Negative HIV 1&2 Ab/P24 Ag 4thGn Nonreactive Total Bilirubin 0.3 AST 31 ALT 20 Alkaline Phosphatase [address] abdomen and pelvis with contrast 03/20/2024 Comparison: CT/OH/SR - CT ABDOMEN WO/W IV CON - 09/05/23 16:27 EDT Findings: No consolidation or effusion. There is a 3 cm cyst within the superior pole of the left kidney. Posterior atrophy of the right kidney. No hydronephrosis of either kidney. No ureteral stones. Spleen, adrenal glands, pancreas, gallbladder and liver are unremarkable. No bowel obstruction, pneumoperitoneum, or pneumatosis. There are scattered colonic diverticula, however no evidence of diverticulitis. Skin thickening over the anterior right abdomen. No underlying fluid collection or abscess. No subcutaneous gas. Incidentally noted lateral right abdominal wall lipoma measuring 4.0 x 8.1 cm, unchanged. Small fat containing right inguinal hernia. Infrarenal abdominal aorta measures 2.7 x 2.9 cm. Aorta previously measured 2.9 x 3.0, not significantly changed. There are mild wall calcifications of the abdominal aorta. Pelvic contents unremarkable. Normal appendix. The bones are intact. Mild degenerative changes of the lumbar spine. Small fat containing umbilical hernia. IMPRESSION: 1. Skin thickening over the anterior right abdominal wall, compatible with cellulitis. No underlying abscess. 2. Borderline aneurysmal infrarenal abdominal aorta measuring 2.7 x 2.9 cm Code(s): K75.81 - Nonalcoholic steatohepatitis (OKEEFE) Category: Medical (6) Small bowel motility disorder: Code(s): K59.9 - Functional intestinal disorder, unspecified Category: Medical (7) Chronic idiopathic constipation: Code(s): K59.04 - Chronic idiopathic constipation Category: Medical (8) GERD (gastroesophageal reflux disease): Code(s): K21.9 - Gastro-esophageal reflux disease without esophagitis Category: Medical Plan Her GI regimen consists of Trulance, Colace, a probiotic, metoclopramide 5 mg 3 times a day, omeprazole twice a day, and senna as needed for breakthrough constipation. She is on Ozempic and this is causing her to have quite a bit of nausea and she is not eating much but she is losing weight which was the reason it was prescribed. Checking on her liver function tests, they had been very elevated after she had her surgery and after she was treated with too strong antibiotics for cellulitis but since she has lost weight it seems that her liver functions have now normalized. In investigating why her liver functions may have been elevated I noticed a very high REX. This could be signs of an autoimmune disease but it also could be from the potential immune system reactions to the liver insult. She is not havi ng any particular myalgias or arthralgias at this time. It was elevated consistent with a connective tissue disorder and she also had an elevated smooth muscle antibody. I think we are going to repeat these labs and simply watch for now to see if I think she should be referred anywhere else are consider anything like autoimmune liver disease. This seems extremely unlikely given the normalization of her liver function testing. She is also a diabetic so we might want to check her A1c to see if this any metabolic contribution. Overall she still satisfied with her GI regimen. Return office visit in 6 months Orders: Orders C Reactive Protein Today E11.65 - Type 2 diabetes mellitus with hyperglycemia, R74.01 - Elevation of levels of liver transaminase levels, R76.8 - Other specified abnormal immunological findings in serum, Z79.4 - termite control technician (current) use of insulin Ferritin Today E11.65 - Type 2 diabetes mellitus with hyperglycemia, R74.01 - Elevation of levels of liver transaminase levels, R76.8 - Other specified abnormal immunological findings in serum, Z79.4 - termite control technician (current) use of insulin TSH reflex Free T4 Today E11.65 - Type 2 diabetes mellitus with hyperglycemia, R74.01 - Elevation of levels of liver transaminase levels, R76.8 - Other specified abnormal immunological findings in serum, Z79.4 - senior living (current) use of insulin REX Reflex Titer and Pattern Today R74.01 - Elevation of levels of liver transaminase levels Amylase Today R11.0 - Nausea Lipase Today R11.0 - Nausea Hemoglobin A1c Today E11.65 - Type 2 diabetes mellitus with hyperglycemia, R74.01 - Elevation of levels of liver transaminase levels, R76.8 - Other specified abnormal immunological findings in serum, Z79.4 - senior living (current) use of insulin Prothrombin Time INR Today E11.65 - Type 2 diabetes mellitus with hyperglycemia, R74.01 - Elevation of levels of liver transaminase levels, R76.8 - Other specified abnormal immunological findings in serum, Z79.4 - senior living (current) use of insulin Smooth Muscle Antibody Today R74.01 - Elevation of levels of liver transaminase levels Medications: Refilled docusate sodium (Stool Softener) 100 mg PO BID 60 caps 6RF K59.04 - Chronic idiopathic constipation metoclopramide HCl 5 mg PO TID 90 tabs 6RF K59.9 - Functional intestinal disorder, unspecified omeprazole 20 mg PO BID 60 caps 6RF plecanatide (Trulance) 3 mg PO BEDTIME 30 tabs 12RF sennosides (senna) 17.2 mg (2 x 8.6 mg) PO BEDTIME 60 tabs 6RF for constipation LABS: Laboratory Tests 10/12/24 10/22/24 14:10 10:49 PT 10.9 INR 1.0 Hemoglobin A1c % 6.5 H Ferritin 69 C-Reactive Protein 0.31 Amylase 36 Lipase 20 TSH 6.80 H Free T4 0.99 REX Screen POSITIVE A REX Titer 1:1280 H REX Pattern Nuclear, Homogeneous A Thyroid Peroxidase Ab >900 H CORRESPONDENCE On 11/02/24 @ 11:07 Umm Ellsworth Wrote To Umm Ellsworth (2) Okay, thanks On 11/02/24 @ 09:17 Kelvin Reyes Wrote To Umm Ellsworth If she is compliant with the 75 mcg levothyroxine, you can increase her 88 mcg and have a recheck TSH and free T4 in 6 weeks. Thanks On 11/02/24 @ 08:38 Umm Ellsworth Wrote To Kelvin Reyes Fermín, I have been seeing Nuvia for quite some time in GI and she had a sudden spike in her liver enzymes and severe constipation. I did a thyroid stutter and TA is H seems to be slightly elevated as are the peroxidase antibodies. Would you advocate for an increase in her levothyroxine? Please advise TODAY'S VISIT Sonal Kilpatrick [facility] Medical History Uncontrolled type 2 diabetes mellitus with hyperglycemia, with long-term current use of insulin Severe persistent asthma NIDDY (non-insulin dependent diabetes mellitus in young) COPD (chronic obstructive pulmonary disease) Cellulitis of labia Pulmonary hypertension, pre-operative cardiovascular examination Arthritis Thyroid disease Bilateral renal cysts Right bundle branch block Dental calculus Depression Varicose veins of left lower extremity Ectatic aorta Paresthesia Paresis of one side of face Neck pain Insomnia disorder, with non-sleep disorder mental comorbidity Increased immunoglobulin Constipation Aneurysm of left internal carotid artery Abnormal ultrasound of kidney Type 2 diabetes mellitus History of kidney stones Abnormal finding on ultrasound Tear of medial meniscus of left knee Leg pain Kidney stone on left side MOCK (dyspnea on exertion) Patellofemoral arthritis of left knee Trochanteric bursitis of right hip COVID-19 Carpal tunnel syndrome of right wrist Renal calculi UTI (urinary tract infection) Allergic rhinitis Anxiety and depression Fibromyalgia HTN (hypertension) PTSD (post-traumatic stress disorder) Preop pulmonary/respiratory exam Vertigo Diabetes Asthma Chest pain Tubular adenoma of colon Vulvovaginitis Acute asthma exacerbation Candidiasis of mouth and esophagus Bronchitis Spondylosis of cervical region without myelopathy or radiculopathy Bronchitis COPD exacerbation Yeast infection Papanicolaou smear for cervical cancer screening Bilateral hand pain Bilateral knee pain Low vitamin D level Dry mouth Environmental allergies Non-toxic multinodular goiter Hypothyroidism Type 2 diabetes mellitus with hyperglycemia DVT (deep venous thrombosis) Menopausal state Cocaine abuse Surgical History Encounter for postoperative wound check Status post umbilical hernia repair, follow-up exam Carbuncle and furuncle of buttock Carbuncle of abdominal wall Umbilical hernia Umbilical hernia Hx of carpal tunnel repair History of esophagogastroduodenoscopy (EGD) H/O colonoscopy with polypectomy History of selective injection of anesthetic agent around lumbar nerve root Hx of right breast biopsy History of hysterectomy History of lithotripsy Family History Father No problems noted. 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 Female Reproductive History Menstrual Age of Menarche: 10 Review of Systems Const Denies fatigue, Denies fever(s), Denies night sweats, Denies poor appetite and Reports weight loss ENT Reports Normal hearing present, Denies dental pain, Denies dysphagia, Denies hearing loss, Denies mouth pain, Denies odynophagia, Denies throat swelling, Denies tongue swelling and Reports other (Dentition adequate) Card Reports no additional complaints Resp Reports no additional complaints GI Details: Denies abdominal pain, Denies melena, Denies bloating, Denies hematochezia, Reports constipation, Denies GI cramping, Denies dysphagia, Denies excessive flatus, Denies early satiety, Reports heartburn, Denies diarrhea, Denies nausea, Denies odynophagia, Denies vomiting and Denies hematemesis Skin/Breast Denies pruritus, Denies lesions, Denies rash and Denies jaundice Neuro Reports Normal hearing present and Denies Abnormal speech present Endo Denies fatigue Aller/Immun Denies throat swelling and Denies tongue swelling Physical Exam Vital Signs: Last Vital Signs Pulse 78 11/12/24 12:56 BP 110/71 11/12/24 12:56 BMI result Body Mass Index 35.2 Const General: cooperative, no acute distress, well developed and well groomed Nutritional Appearance: well nourished and obese Orientation/consciousness: oriented to person, oriented to place and oriented to time Limitations: language barrier HEENT Head: Yes normocephalic and Yes atraumatic Eyes General: appearance normal, both eyes and all related structures Pupils: Equal, round and reactive pupils present Neck Neck: Yes normal visual inspection and Yes no lymphadenopathy Thyroid: Thyroid normal Resp Effort & Inspection: normal respiratory effort and able to speak in complete sentences Auscultation: clear to auscultation bilaterally Cardio Rate: regular rate Rhythm: regular rhythm Heart sounds: Normal, physiologic split S2 sound present Peripheral pulses: radial pulses present and posterior tibial pulses present GI Inspection: No distended, Yes Abdominal panniculus present and Yes obesity Palpation (GI): Soft to palpation, nontender, no guarding, not rigid and No hepatosplenomegaly present Percussion: Yes normal to percussion Auscultation: normal bowel sounds Rectal Exam - Female: deferred Skin General skin exam: no rashes or lesions noted, turgor normal, skin not dry, no jaundice, No spider nevi and no striae Rashes: no rashes Nails: normal Neuro General: oriented to person, oriented to place and oriented to time Cranial nerves: Yes Equal, round and reactive pupils present and Yes Normal hearing present Speech: No Abnormal speech present Extrem General: Yes normal to inspection, No clubbing, No cyanosis and No edema Psych Appearance: grossly normal and well kempt Mental Status: mental status grossly normal Speech and movement: Normal speech and movement present Affect: normal affect Attitude: cooperative Thought process: Normal thought process present and not confabulating Thought content: Normal thought content present Insight: Limited insight present (Psych) Judgement: Limited judgement present (Psych) Results Reviewed Results Reviewed: Laboratory Tests 10/12/24 10/22/24 14:10 10:49 PT 10.9 INR 1.0 Hemoglobin A1c % 6.5 H Ferritin 69 C-Reactive Protein 0.31 Amylase 36 Lipase 20 TSH 6.80 H Free T4 0.99 REX Screen POSITIVE A REX Titer 1:1280 H REX Pattern Nuclear, Homogeneous A Thyroid Peroxidase Ab >900 H Assessment & Plan Assessment & Plan (1) Chronic idiopathic constipation: Code(s): K59.04 - Chronic idiopathic constipation Category: Medical (2) Hypothyroidism: Code(s): E03.9 - Hypothyroidism, unspecified Category: Medical (3) Small bowel motility disorder: Code(s): K59.9 - Functional intestinal disorder, unspecified Category: Medical (4) GERD (gastroesophageal reflux disease): Code(s): K21.9 - Gastro-esophageal reflux disease without esophagitis Category: Medical (5) Controlled diabetes mellitus: Code(s): E11.9 - Type 2 diabetes mellitus without complications Category: Medical Plan Her GI regimen consists of Trulance, Colace, a probiotic, metoclopramide 5 mg 3 times a day, omeprazole twice a day, and senna as needed for breakthrough constipation. - The patient is a 64-year-old female we follow for a multitude of GI conditions including gastroparesis, and severe constipation here today to review labs. - Diabetes Mellitus was managed with Semaglutide (Ozempic), but the medication was discontinued after episodes of low blood sugar and weakness. - The patient experienced an asthma attack recently, managed with Prednisone, and received a recent flu vaccine after having four COVID-19 vaccinations. The only concerning lab was that her TSH was elevated along with a severe elevation of her thyroid antibodies. This usually is a harbinger of subclinical hypothyroidism. This would correlate well with her severe constipation that is difficult to control and her difficulties with weight loss. It also could be driving her increased liver functions. I called her z os mainframe systems programmer and he was in agreement that we should increase her levothyroxine to 88 micro g. she received the medication but only started taking it a week ago. I let her know that we will redraw the blood in try to titrate it to normal values. With conversation I find out that she is getting her medications in a pill pack and the pharmacy is not the levothyroxine from the other medications. This potentially could be detrimental impacting the absorbed ability of the thyroid medicine. I educated her that this medication really should be taken by itself and at least an hour before she takes any other medications to promote appropriate absorption. She is agreeable to this she asks me to send a note to the pharmacy and hopefully they can send her the medicine in a bottle so that she can separate it from the other medicines. If she wants to bring in her existing pill packs I can help her identify which pill is the thyroid pills so she can do this more easily. Return office visit in 5 weeks Medications: Changed From levothyroxine (Levoxyl) 88 mcg PO DAILY 30 tabs 6RF E03.9 - Hypothyroidism, unspecified To levothyroxine (Levoxyl) PLEASE DO NOT PUT INTO PILL PACK! MUST BE ISOLATED AND TAKEN 1 HOUR BEFORE OTHER MEDICINES. 88 mcg PO DAILY 30 tabs 6RF E03.9 - Hypothyroidism, unspecified Refilled omeprazole 20 mg PO BID 60 caps 6RF plecanatide (Trulance) 3 mg PO BEDTIME 30 tabs 12RF Discontinued prednisone Discontinued Reason: Patient no longer taking 40 mg (2 x 20 mg) PO DAILY 10 tabs 0RF levofloxacin Discontinued Reason: Patient Completed Course 750 mg PO DAILY 7 tabs 0RF On Hold semaglutide (Ozempic) Hold Comment: Doctor's Order 0.5 mg (0.736 mL) subcut SA 3 mL 4RF Coding Level of Care Code Est Pt Level 3 (19626) Diagnoses Chronic idiopathic constipation K59.04 Hypothyroidism E03.9 Small bowel motility disorder K59.9 GERD (gastroesophageal reflux disease) K21.9 Controlled diabetes mellitus E11.9
[2024-11-12 12:56] VITALS: BP 110/71; PULSE 78; BMI 35.2
--- OUTSIDE RECORDS SUMMARY | 2024-11-12 14:08 | XMS_ITS | Encounter Summary ---
Author Organization [employer] Address [address] [facility] [address] [place] [address] Care Team Providers Care Grain Cleaner And Transfer Operator Name Role Phone Sariah Vickers Primary Care Provider [phone] Yuri Pierre PharmD Unavailable [phone] Basilio Hall MD Unavailable [phone] Ron Preciado MD Unavailable [phone] Reason for Visit * Reason Comments Med Refill Encounter Details Date Type Department Care Team (Late st Contact Info) Description 09/13/2022 Refill [facility] [address] [place] [address] Sariah Vickers ANP [address] [place] [address] Severe persistent allergic asthma without complication Social [...] 11/17/2024 9:30 AM EDT Medication Management [address] [address] Yuri Pierre, Dileep [address] [place] [phone] 01/07/2025 9:30 AM EST Clinical Support [address] [address] Azeb Hall RN [address] [place] [address] 01/11/2025 1:00 PM EST Office Visit [address] [address] Sariah Vickers ANP [address] [place] [phone] 02/03/2025 11:00 AM EST Medication Management [address] [address] Yuri Pierre PharmD [address] [place] [phone] documented as of this encounter Visit Diagnoses Diagnosis Severe persistent allergic asthma without complication documented in this encounter Care Teams Grain Cleaner And Transfer Operator Relationship Specialty Start Date End Date Sariah Vickers ANP [address] [place] [phone] PCP - General Family Medicine 09/23/19 Yuri Pierre, PharmD [address] [place] [phone] Pharmacist Internal Medicine 05/05/24 Basilio Hall MD [address] [place] [address] Cardiology 05/17/24 Ron Preciado MD [address] [place] [id number] Pulmonary Disease 05/17/24 documented as of this encounter
--- OUTSIDE RECORDS SUMMARY | 2024-11-12 14:08 | XMS_ITS | Encounter Summary ---
Author Organization [employer] Address [address] [facility] [address] [place] [address] Care Team Providers Care Small Business Banking Officer Name Role Phone Sariah Vickers KAYLEE Primary Care Provider [phone] Yuri Pierre PharmD Unavailable [phone] Basilio Hall MD Unavailable [phone] Ron Preciado MD Unavailable [phone] Encounter Details Date Type Department Care Team (Latest Contact Info) Description 05/15/2018 Abstract [facility] Dental, Provider, DDS Social History Tobacco [...] Description 11/17/2024 9:30 AM EDT Medication Management [facility] [address] [place] [phone] Yuri Pierre, PharmD [address] [place] [address] 01/07/2025 9:30 AM EST Clinical Support [facility] [address] [place] [phone] Azeb Hall RN [address] [place] [address] 01/11/2025 1:00 PM EST Office Visit [facility] [address] [place] [phone] Sariah Vickesr ANP [address] [place] [address] 02/03/2025 11:00 AM EST Medication Management [address] [address] Yuri Pierre, Dileep [address] [place] [phone] documented as of this encounter Visit Diagnoses Not on filedocumented in this encounter Care Teams Small Business Banking Officer Relationship Specialty Start Date End Date Sariah Vickers ANP [address] [place] [address] [phone] PCP - General Family Medicine 09/23/19 Yuri Pierre, PharmD [address] [place] [address] [phone] Pharmacist Internal Medicine 05/05/24 Basilio Hall MD [address] [place], [place] [phone] Cardiology 05/17/24 Ron Preciado MD [address] [place] [phone] Pulmonary Disease 05/17/24 documented as of this encounter
--- OUTSIDE RECORDS SUMMARY | 2024-11-12 14:08 | XMS_ITS | Encounter Summary ---
Author Organization [employer] Address [address] [facility] [address] [place] [address] Care Team Providers Care Dental Assisting Instructor Name Role Phone Sariah Vickers Primary Care Provider Yuri Pierre PharmD Unavailable [phone] Basilio Hall MD Unavailable [phone] Ron Preciado MD Unavailable [phone] Reason for Visit * Reason Comments Med Refill Encounter Details Date Type Department Care Team (Late st Contact Info) Description 08/22/2023 Refill [facility] [address] [place] [address] Sariah Vickers ANP [address] [place] [address] Neck pain Social History Tobacco Use Types [...] Description 11/17/2024 9:30 AM EDT Medication Management [address] [address] Yuri Pierre, PharmD [address] [place] [phone] 01/07/2025 9:30 AM EST Clinical Support [address] [address] Azeb Hall, MARTIN [address] [place] [address] 01/11/2025 1:00 PM EST Office Visit [address] [address] Sariah Vickers, KAYLEE [address] [place] [phone] 02/03/2025 11:00 AM EST Medication Management [address] [address] Yuri Pierre, PharmD [address] [place] [phone] documented as of this encounter Goals Goal [...] documented as of this encounter Care Teams Dental Assisting Instructor Relationship Specialty Start Date End Date Sariah Vickers ANP [address] [place] [address] PCP - General Family Medicine 09/23/19 Yuri Pierre PharmD [address] [place] [address] Pharmacist Internal Medicine 05/05/24 Basilio Hall MD [address] [place] [id number] Cardiology 05/17/24 Ron Preciado MD [address] [place] [address] Pulmonary Disease 05/17/24 documented as of this encounter
--- OUTSIDE RECORDS SUMMARY | 2024-11-12 14:09 | XMS_ITS | Encounter Summary ---
Author Organization [employer] Address 75 [facility] 7t [place] [address] Care Team Providers Care Avian Keeper Name Role Phone Sariah Vickers Primary Care Provider Yuri Pierre PharmD Unavailable [phone] Basilio Hall MD Unavailable [phone] Ron Preciado MD Unavailable [phone] Reason for Visit * Reason Comments Med Refill Encounter Details Date Type Department Care Team (Late st Contact Info) Description 03/09/2024 Refill [facility] [address] [place] [address] Sariah Vickers ANP 230 [place] [address] Neck pain Social History Tobacco Use Types [...] Description 11/17/2024 9:30 AM EDT Medication Management [address] [address] Yuri Pierre, PharmD [address] [place] [address] 01/07/2025 9:30 AM EST Clinical Support [address] [address] Azeb Hall, MARTIN 505 [place] [address] 01/11/2025 1:00 PM EST Office Visit [address] [address] Sariah Vickers, KAYLEE [address] [place] [address] 02/03/2025 11:00 AM EST Medication Management [address] [address] Yuri Pierre, PharmD [address] [place] [address] documented as of this encounter Goals Goal [...] documented as of this encounter Care Teams Avian Keeper Relationship Specialty Start Date End Date Sariah Vickers ANP [address] [place] [address] PCP - General Family Medicine 09/23/19 Yuri Pierre PharmD [address] [place] [address] Pharmacist Internal Medicine 05/05/24 Basilio Hall MD [address] [place] [address] Cardiology 05/17/24 Ron Preciado MD [address] [place] [address] Pulmonary Disease 05/17/24 documented as of this encounter
--- OUTSIDE RECORDS SUMMARY | 2024-11-12 14:09 | XMS_ITS | Encounter Summary ---
Author Organization [employer] Address 75 [facility] 7t [place] [address] Care Team Providers Care Hvac Sheet Metal Installer Name Role Phone Sariah Vickers Primary Care Provider [phone] Yuri Pierre PharmD Unavailable [phone] Basilio Hall MD Unavailable [phone] Ron Preciado MD Unavailable [phone] Reason for Visit * Reason Onset Date Comments Med Refill 01/09/2024 Encounter Details Date Type Department Care Team (Late st Contact Info) Description 01/09/2024 Telephone [facility] 230 [place] [address] Sariah Vickers ANP 230 [place], [place] [phone] Med Refill Social History Tobacco Use Types [...] 11/17/2024 9:30 AM EDT Medication Management [address] [address] Yuri Pierre, PharmD [address] [place] [address] 01/07/2025 9:30 AM EST Clinical Support [address] [address] Azeb Hall, RN 505 [place] [address] 01/11/2025 1:00 PM EST Office Visit [address] [address] Sariah Vickers, KAYLEE [address] [place] [address] 02/03/2025 11:00 AM EST Medication Management [address] [address] Yuri Pierre, PharmD [address] [place] [address] documented as of this encounter Goals Goal Patient Goal Type Associated Problems Recent Progress Patient-Stated? Author Blood Pressure < 140/90 Blood Pressure 132/88(2024 8:49 AM EDT) No Aida Ragland, PharmD Record [...] documented as of this encounter Care Teams Hvac Sheet Metal Installer Relationship Specialty Start Date End Date Sariah Vickers ANP 230 [place] [address] PCP - General Family Medicine 09/23/19 Yuri Pierre, MikeD [address] [place] [address] Pharmacist Internal Medicine 05/05/24 Basilio Hall MD [address] [place] [address] Cardiology 05/17/24 Ron Preciado MD [address] [place] [address] Pulmonary Disease 05/17/24 documented as of this encounter
--- OUTSIDE RECORDS SUMMARY | 2024-11-12 14:09 | XMS_ITS | Encounter Summary ---
Author Organization [employer] Address 75 [facility] 7t [place] [address] Care Team Providers Care Branch Service Leader Name Role Phone Sariah Vickers Primary Care Provider [phone] Yuri Pierre PharmD Unavailable [phone] Basilio Hall MD Unavailable [phone] Ron Preciado MD Unavailable [phone] Reason for Visit * Reason Comments Med Refill Encounter Details Date Type Department Care Team (Late st Contact Info) Description 11/26/2023 Refill [facility] 230 [place] [address] Sariah Vickers ANP 230 [place] [address] Vertigo Social History Tobacco Use Types Packs/Day [...] Description 11/17/2024 9:30 AM EDT Medication Management [address] [address] Yuri Pierre, PharmD [address] [place] [address] 01/07/2025 9:30 AM EST Clinical Support [address] [address] Azeb Hall, MARTIN 505 [place] [address] 01/11/2025 1:00 PM EST Office Visit [address] [address] Sariah Vickers, KAYLEE [address] [place] [address] 02/03/2025 11:00 AM EST Medication Management [address] [address] Yuri Pierre, PharmD [address] [place] [address] documented as of this encounter Goals Goal [...] documented as of this encounter Care Teams Branch Service Leader Relationship Specialty Start Date End Date Sariah Vickers ANP [address] [place] [address] PCP - General Family Medicine 09/23/19 Yuri Pierre PharmD [address] [place] [address] Pharmacist Internal Medicine 05/05/24 Basilio Hall MD [address] [place] [address] Cardiology 05/17/24 Ron Preciado MD [address] [place] [address] Pulmonary Disease 05/17/24 documented as of this encounter
--- OUTSIDE RECORDS SUMMARY | 2024-11-12 14:09 | XMS_ITS | Encounter Summary ---
Author Organization [employer] Address 75 [facility] 7t [place] [address] Care Team Providers Care Manual Qa Tester Name Role Phone Sariah Vickers Primary Care Provider [phone] Yuri Pierre PharmD Unavailable [phone] Bsailio Hall MD Unavailable [phone] Ron Preciado MD Unavailable [phone] Encounter Details Date Type Department Care Team (Late st Contact Info) Description 10/20/2024 Results Follow-Up [facility] MEDICINE 230 [place] [address] Sariah Vickers ANP 230 [place] [address] Prothrombin Time-INR, C-reactive Protein, Amylase, Additional followed-up [...] Description 11/17/2024 9:30 AM EDT Medication Management [address] [address] Yuri Pierre, PharmD [address] [place] [address] 01/07/2025 9:30 AM EST Clinical Support [address] [address] Azeb Hall RN 505 [place] [address] 01/11/2025 1:00 PM EST Office Visit [address] [phone] Sariah Vickers ANP 230 [place] [address] 02/03/2025 11:00 AM EST Medication Management [facility] 230 [place] [address] Yuri Pierre, PharmBear 230 [place] [address] documented as of this encounter Goals Goal Patient Goal Type Associated Problems Recent Progress Patient-Stated? Author Blood Pressure < 140/90 Blood Pressure 132/88(2024 8:49 AM EDT) No Aida Ragland PharmBear Record [...] documented as of this encounter Care Teams Manual Qa Tester Relationship Specialty Start Date End Date Sariah Vickers ANP 230 [place] [address] PCP - General Family Medicine 09/23/19 Yuri Pierre, PharmD [address] [place] [address] Pharmacist Internal Medicine 05/05/24 Basilio Hall MD 596 [place] [address] Cardiology 05/17/24 Ron Preciado MD [address] [place] [address] Pulmonary Disease 05/17/24 documented as of this encounter
--- OUTSIDE RECORDS SUMMARY | 2024-11-12 14:09 | XMS_ITS | Encounter Summary ---
Author Organization [employer] Address 75 [facility] 7t [place] [address] Care Team Providers Care Licensed Bondsman Name Role Phone Sariah Vickers Primary Care Provider [phone] Yuri Pierre PharmD Unavailable [phone] Basilio Hall MD Unavailable [phone] Ron Preciado MD Unavailable [phone] Reason for Visit * Reason Comments Med Refill Encounter Details Date Type Department Care Team (Late st Contact Info) Description 10/03/2023 Refill [facility] 230 [place] [address] Sariah Vickers ANP 230 [place], [place] [phone] Chronic SI joint pain Social History Tobacco [...] Description 11/17/2024 9:30 AM EDT Medication Management [address] [address] Yuri Pierre, PharmD [address] [place] [address] 01/07/2025 9:30 AM EST Clinical Support [address] [address] Azeb Hall, RN 505 [place] [address] 01/11/2025 1:00 PM EST Office Visit [address] [address] Sariah Vickers, ANP [address] [place] [address] 02/03/2025 11:00 AM EST Medication Management [address] [address] Yuri Pierre, PharmD [address] [place] [address] documented as of this encounter Goals Goal [...] documented as of this encounter Care Teams Licensed Bondsman Relationship Specialty Start Date End Date Sariah Vickers ANP 230 [place] [address] PCP - General Family Medicine 09/23/19 Yuri Pierre, MikeD 230 [place] [address] Pharmacist Internal Medicine 05/05/24 Basilio Hall MD 596 [place] [address] Cardiology 05/17/24 Ron Preciado MD [address] [place] [address] Pulmonary Disease 05/17/24 documented as of this encounter
--- OUTSIDE RECORDS SUMMARY | 2024-11-12 14:09 | XMS_ITS | Encounter Summary ---
Author Organization [employer] Address 75 [facility] 7t [place] [address] Care Team Providers Care Precision Lens Polisher Name Role Phone Sariah Vickers Primary Care Provider [phone] Yuri Pierre PharmD Unavailable [phone] Basilio Hall MD Unavailable [phone] Ron Preciado MD Unavailable [phone] Reason for Visit * Reason Comments Med Refill Encounter Details Date Type Department Care Team (Late st Contact Info) Description 06/17/2024 Refill [facility] 230 [place] [address] Sariah Vickers ANP 230 [place], [place] [phone] Neck pain Social History Tobacco Use Types [...] Description 11/17/2024 9:30 AM EDT Medication Management [address] [address] Yuri Pierre, PharmD [address] [place] [address] 01/07/2025 9:30 AM EST Clinical Support [address] [address] Azeb Hall, MARTIN 505 [place] [address] 01/11/2025 1:00 PM EST Office Visit [address] [address] Sariah Vickers, KAYLEE [address] [place] [address] 02/03/2025 11:00 AM EST Medication Management [address] [address] Yuri Pierre, PharmD [address] [place] [address] documented as of this encounter Goals Goal [...] documented as of this encounter Care Teams Precision Lens Polisher Relationship Specialty Start Date End Date Sariah Vickers ANP [address] [place] [address] PCP - General Family Medicine 09/23/19 Yuri Pierre PharmD [address] [place] [address] Pharmacist Internal Medicine 05/05/24 Basilio Hall MD [address] [place] [address] Cardiology 05/17/24 Ron Preciado MD [address] [place] [address] Pulmonary Disease 05/17/24 documented as of this encounter
--- OUTSIDE RECORDS SUMMARY | 2024-11-12 14:09 | XMS_ITS | Encounter Summary ---
Author Organization [employer] Address 75 [facility] 7t [place] [address] Care Team Providers Care Insurance Account Manager Name Role Phone Sariah Vickers Primary Care Provider [phone] Yuri Pierre PharmD Unavailable [phone] Basilio Hall MD Unavailable [phone] Ron Preciado MD Unavailable [phone] Reason for Visit * Reason Onset Date Comments Med Refill 09/18/2023 Encounter Details Date Type Department Care Team (Late st Contact Info) Description 09/18/2023 Telephone [facility] 230 [place], [place] [phone] Sariah Vickers ANP 230 [place], [place] [phone] Med Refill Social History Tobacco Use Types [...] refill : Tramadol To be sent to: [facility] - [place], [place] - [address] [place] [address] documented in this encounter Plan of Treatment Upcoming Encounters Date Type Department Care Team ([facility] st Contact Info) Description 11/17/2024 9:30 AM EDT Medication Management [address] [address] Yuri Pierre, PharmD [address] [place] [address] 01/07/2025 9:30 AM EST Clinical Support [address] [address] Azeb Hall, MARTIN 505 [place] [address] 01/11/2025 1:00 PM EST Office Visit [address] [address] Sariah Vickers ANP 230 [place] [address] 02/03/2025 11:00 AM EST Medication Management [facility] 230 [place] [address] Yuri Pierre, Dileep 230 [place] [address] documented as of this encounter Goals Goal [...] documented as of this encounter Care Teams Insurance Account Manager Relationship Specialty Start Date End Date Sariah Vickers ANP 230 [place] [address] PCP - General Family Medicine 09/23/19 Yuri Pierre, PharmD 230 [place] [address] Pharmacist Internal Medicine 05/05/24 Basilio Hall MD 596 [place] [address] Cardiology 05/17/24 Ron Preciado MD [address] [place] [address] Pulmonary Disease 05/17/24 documented as of this encounter
--- OUTSIDE RECORDS SUMMARY | 2024-11-12 14:09 | XMS_ITS | Encounter Summary ---
Author Organization [employer] Address 75 [facility] 7t [place] [address] Care Team Providers Care Weapons Mechanic Name Role Phone Sariah Vickers Primary Care Provider [phone] Yuri Pierre PharmD Unavailable [phone] Basilio Hall MD Unavailable [phone] Ron Preciado MD Unavailable [phone] Reason for Visit * Reason Comments Med Refill Encounter Details Date Type Department Care Team (Late st Contact Info) Description 12/17/2023 Refill [facility] MED[facility]INE 230 [place] [address] Sariah Vickers ANP 230 [place] [address] Chronic SI joint pain Social History Tobacco [...] Description 11/17/2024 9:30 AM EDT Medication Management [address] [address] Yuri Pierre, PharmD [address] [place] [address] 01/07/2025 9:30 AM EST Clinical Support [address] [address] Azeb Hall, MARTIN 505 [place] [address] 01/11/2025 1:00 PM EST Office Visit [address] [address] Sariah Vickers, KAYLEE [address] [place] [address] 02/03/2025 11:00 AM EST Medication Management [address] [address] Yuri Pierre, PharmD [address] [place] [address] documented as of this encounter Goals Goal [...] documented as of this encounter Care Teams Weapons Mechanic Relationship Specialty Start Date End Date Sariah Vickers ANP 230 [place] [address] PCP - General Family Medicine 09/23/19 Yuri Pierre, MikeD [address] [place] [address] Pharmacist Internal Medicine 05/05/24 Basilio Hall MD 596 [place] [address] Cardiology 05/17/24 Ron Preciado MD [address] [place] [address] Pulmonary Disease 05/17/24 documented as of this encounter
--- OUTSIDE RECORDS SUMMARY | 2024-11-12 14:09 | XMS_ITS | Encounter Summary ---
Author Organization [employer] Address 75 [facility] 7t [place] [address] Care Team Providers Care Biochemical Development Engineer Name Role Phone Sariah Vickers Primary Care Provider [phone] Yuri Pierre PharmD Unavailable [phone] Basilio Hall MD Unavailable [phone] Ron Preciado MD Unavailable [phone] Reason for Visit * Reason Comments Med Refill Encounter Details Date Type Department Care Team (Late st Contact Info) Description 01/06/2024 Refill [facility] MED & PEDS [address] [place] [address] Sariah Vickers ANP 230 [place] [address] Cervicalgia Social History Tobacco Use Types Packs/Day [...] Description 11/17/2024 9:30 AM EDT Medication Management [address] [address] Yuri Pierre, PharmD [address] [place] [address] 01/07/2025 9:30 AM EST Clinical Support [address] [address] Azeb Hall, MARTIN 505 [place] [address] 01/11/2025 1:00 PM EST Office Visit [address] [address] Sariah Vickers, KAYLEE [address] [place] [address] 02/03/2025 11:00 AM EST Medication Management [address] [address] Yuri Pierre, PharmD [address] [place] [address] documented as of this encounter Goals Goal [...] documented as of this encounter Care Teams Biochemical Development Engineer Relationship Specialty Start Date End Date Sariah Vickers ANP 230 [place] [address] PCP - General Family Medicine 09/23/19 Yuri Pierre PharmD [address] [place] [address] Pharmacist Internal Medicine 05/05/24 Basilio Hall MD [address] [place] [address] Cardiology 05/17/24 Ron Preciado MD [address] [place] [address] Pulmonary Disease 05/17/24 documented as of this encounter
--- OUTSIDE RECORDS SUMMARY | 2024-11-12 14:09 | XMS_ITS | Encounter Summary ---
Author Organization [employer] Address 75 [facility] 7t [place] [address] Care Team Providers Care Unstacker Name Role Phone Sariah Vickers Primary Care Provider [phone] Yuri Pierre PharmD Unavailable [phone] Basilio Hall MD Unavailable [phone] Ron Preicado MD Unavailable [phone] Reason for Visit * Reason Comments Med Refill Encounter Details Date Type Department Care Team (Late st Contact Info) Description 01/04/2024 Refill [facility] PEDS [address] [place] [address] Sariah Vickers ANP 230 [place] [address] Cervicalgia Social History Tobacco Use Types Packs/Day [...] 11/17/2024 9:30 AM EDT Medication Management [address] [address] Yuri Pierre, PharmD [address] [place] [address] 01/07/2025 9:30 AM EST Clinical Support [address] [address] Azeb Hall, MARTIN 505 [place] [address] 01/11/2025 1:00 PM EST Office Visit [address] [address] Sariha Vickers, KAYLEE [address] [place] [address] 02/03/2025 11:00 AM EST Medication Management [address] [address] Yuri Pierre, PharmD [address] [place] [address] documented as of this encounter Goals Goal [...] documented as of this encounter Care Teams Unstacker Relationship Specialty Start Date End Date Sariah Vickers ANP 230 [place] [address] PCP - General Family Medicine 09/23/19 Yuri Pierre PharmD [address] [place] [address] Pharmacist Internal Medicine 05/05/24 Basilio Hall MD [address] [place] [address] Cardiology 05/17/24 Ron Preciado MD [address] [place] [address] Pulmonary Disease 05/17/24 documented as of this encounter
--- OUTSIDE RECORDS SUMMARY | 2024-11-12 14:09 | XMS_ITS | Encounter Summary ---
Author Organization [employer] Address 75 [facility] 7t [place] [address] Care Team Providers Care Barber Or Beauty Shop Manager Name Role Phone Sariah Vickers Primary Care Provider [phone] Yuri Pierre PharmD Unavailable [phone] Basilio Hall MD Unavailable [phone] Ron Preciado MD Unavailable [phone] Reason for Visit * Reason Comments Med Refill Pt wants to know if she can keep taking prednis Encounter Details Date Type Department Care Team (Late st Contact Info) Description 06/26/2024 Refill [facility] [address] [place] [address] Sariah Vickers ANP 230 [place] [address] Cervicalgia Social History Tobacco Use Types Packs/Day [...] 11/17/2024 9:30 AM EDT Medication Management [address] [address] Yuri Pierre, PharmD [address] [place] [address] 01/07/2025 9:30 AM EST Clinical Support [address] [address] Azeb Hall, MARTIN [address] [place] [address] 01/11/2025 1:00 PM EST Office Visit [address] [address] Sariah Vickers, KAYLEE [address] [place] [address] 02/03/2025 11:00 AM EST Medication Management [address] [address] Yuri Pierre, PharmD [address] [place] [address] documented as of this encounter Goals Goal Patient Goal Type Associated Problems Recent Progress Patient-Stated? Author Blood Pressure < 140/90 Blood Pressure 132/88(2024 8:49 AM EDT) No PhanisiAda Cheng, PharmD Record Your Blood Sugar As [...] documented as of this encounter Care Teams Barber Or Beauty Shop Manager Relationship Specialty Start Date End Date Sariah Vickers ANP 230 [place] [address] PCP - General Family Medicine 09/23/19 Yuri Pierre, MikeD [address] [place] [address] Pharmacist Internal Medicine 05/05/24 Basilio Hall MD 596 [place] [address] Cardiology 05/17/24 Ron Preciado MD [address] [place] [address] Pulmonary Disease 05/17/24 documented as of this encounter
--- OUTSIDE RECORDS SUMMARY | 2024-11-12 14:09 | XMS_ITS | Encounter Summary ---
Author Organization [employer] Address 75 [facility] 7t [place] [address] Care Team Providers Care Open Pit Quarry Supervisor Name Role Phone Sariah Vickers Primary Care Provider [phone] Yuri Pierre PharmD Unavailable [phone] Basilio Hall MD Unavailable [phone] Ron Preciado MD Unavailable [phone] Reason for Visit * Reason Comments Med Refill Encounter Details Date Type Department Care Team (Late st Contact Info) Description 10/24/2023 Refill [facility] 230 [place] [address] Sariah Vickers ANP 230 [place] [address] Neck pain Social History Tobacco Use Types [...] Description 11/17/2024 9:30 AM EDT Medication Management [address] [address] Yuri Pierre, PharmD [address] [place] [address] 01/07/2025 9:30 AM EST Clinical Support [address] [address] Azeb Hall, MARTIN 505 [place] [address] 01/11/2025 1:00 PM EST Office Visit [address] [address] Sariah Vickers, KAYLEE [address] [place] [address] 02/03/2025 11:00 AM EST Medication Management [address] [address] Yuri Pierre, PharmD [address] [place] [address] documented as of this encounter Goals Goal [...] documented as of this encounter Care Teams Open Pit Quarry Supervisor Relationship Specialty Start Date End Date Sariah Vickers ANP 230 [place] [address] PCP - General Family Medicine 09/23/19 Yuri Pierre PharmD 230 [place] [address] Pharmacist Internal Medicine 05/05/24 Basilio Hall MD [address] [place] [address] Cardiology 05/17/24 Ron Preciado MD [address] [place] [address] Pulmonary Disease 05/17/24 documented as of this encounter
--- OUTSIDE RECORDS SUMMARY | 2024-11-12 14:09 | XMS_ITS | Encounter Summary ---
Author Organization [employer] Address 75 [facility] 7t [place] [address] Care Team Providers Care Premium Note Interest Calculator Clerk Name Role Phone Sariah Vickers Primary Care Provider [phone] Yuri Pierre PharmD Unavailable [phone] Basilio Hall MD Unavailable [phone] Ron Preciado MD Unavailable [phone] Reason for Visit * Reason Comments Med Refill Encounter Details Date Type Department Care Team (Late st Contact Info) Description 03/26/2022 Refill [facility] 230 [place] [address] Sariah Vickers ANP 230 [place] [address] Social History Tobacco Use Types Packs/Day Years [...] Description 11/17/2024 9:30 AM EDT Medication Management [address] [address] Yuri Pierre, PharmD [address] [place] [address] 01/07/2025 9:30 AM EST Clinical Support [address] [address] Azeb Hall, RN 505 [place] [address] 01/11/2025 1:00 PM EST Office Visit [address] [address] Sariah Vickers ANP [address] [place] [address] 02/03/2025 11:00 AM EST Medication Management [address] [address] Yuri Pierre PharmD [address] [place] [address] documented as of this encounter Visit Diagnoses Not on filedocumented in this encounter Care Teams Premium Note Interest Calculator Clerk Relationship Specialty Start Date End Date Sariah Vickers ANP [address] [place] [address] PCP - General Family Medicine 09/23/19 Yuir Pierre, PharmD [address] [place] [address] Pharmacist Internal Medicine 05/05/24 Basilio Hall MD 596 [place] [address] Cardiology 05/17/24 Ron Preciado MD [address] [place] [address] Pulmonary Disease 05/17/24 documented as of this encounter
--- OUTSIDE RECORDS SUMMARY | 2024-11-12 14:09 | XMS_ITS | Encounter Summary ---
Author Organization [employer] Address 75 [facility] 7t [place] [address] Care Team Providers Care Excel Vba Developer Name Role Phone Sariah Vickers Primary Care Provider [phone] Yuri Pierre PharmD Unavailable [phone] Basilio Hall MD Unavailable [phone] Ron Preciado MD Unavailable [phone] Reason for Visit * Reason Comments Med Refill Encounter Details Date Type Department Care Team (Late st Contact Info) Description 11/14/2023 Refill [facility] 230 [place] [address] Sariah Vickers ANP 230 [place] [address] Neck pain Social History Tobacco Use Types [...] Description 11/17/2024 9:30 AM EDT Medication Management [address] [address] Yuri Pierre, PharmD [address] [place] [address] 01/07/2025 9:30 AM EST Clinical Support [address] [address] Azeb Hall, MARTIN 505 [place] [address] 01/11/2025 1:00 PM EST Office Visit [address] [address] Sariah Vickers, KAYLEE [address] [place] [address] 02/03/2025 11:00 AM EST Medication Management [address] [address] Yuri Pierre, PharmD [address] [place] [address] documented as of this encounter Goals Goal [...] documented as of this encounter Care Teams Excel Vba Developer Relationship Specialty Start Date End Date Sariah Vickers ANP 230 [place] [address] PCP - General Family Medicine 09/23/19 Yuri Pierre PharmD 230 [place] [address] Pharmacist Internal Medicine 05/05/24 Basilio Hall MD [address] [place] [address] Cardiology 05/17/24 Ron Preciado MD [address] [place] [address] Pulmonary Disease 05/17/24 documented as of this encounter
--- OUTSIDE RECORDS SUMMARY | 2024-11-12 14:09 | XMS_ITS | Encounter Summary ---
Author Organization [employer] Address 75 [facility] 7t [place] [address] Care Team Providers Care Construction Technician Name Role Phone Sariah Vickers KAYLEE Primary Care Provider [phone] Yuri Pierre PharmD Unavailable [phone] Basilio Hall MD Unavailable [phone] Ron Preciado MD Unavailable [phone] Encounter Details Date Type Department Care [...] Description 11/17/2024 9:30 AM EDT Medication Management [facility] [address] [place] [address] Yuri Pierre, PharmD 230 [place] [address] 01/07/2025 9:30 AM EST Clinical Support [facility] [address] [place] [address] Azeb Hall RN 505 [place] [address] 01/11/2025 1:00 PM EST Office Visit [facility] [address] [place] [address] Sariah Vickers ANP [address] [place] [address] 02/03/2025 11:00 AM EST Medication Management [address] [address] Yuri Pierre PharmD [address] [place] [address] documented as of this encounter Visit Diagnoses Not on filedocumented in this encounter Care Teams Construction Technician Relationship Specialty Start Date End Date Sariah Vickers ANP [address] [place] [address] PCP - General Family Medicine 09/23/19 Yuri Pierre, PharmD [address] [place] [address] [phone] Pharmacist Internal Medicine 05/05/24 Basilio Hall MD 596 [place], [place] 1949640 Cardiology 05/17/24 Ron Preciado MD [address] [place] [address] Pulmonary Disease 05/17/24 documented as of this encounter
--- OUTSIDE RECORDS SUMMARY | 2024-11-12 14:09 | XMS_ITS | Encounter Summary ---
Author Organization [employer] Address 75 [facility] 7t [place] [address] Care Team Providers Care Hadoop Application Developer Name Role Phone Sariah Vickers Primary Care Provider Yuri Pierre PharmD Unavailable [phone] Basilio Hall MD Unavailable [phone] Ron Preciado MD Unavailable [phone] Reason for Visit * Reason Comments Med Refill Encounter Details Date Type Department Care Team (Late st Contact Info) Description 03/03/2022 Refill [facility] 230 [place] [address] Sariah Vickers ANP 230 [place] [address] Social History Tobacco Use Types Packs/Day Years [...] Description 11/17/2024 9:30 AM EDT Medication Management [address] [address] Yuri Pierre PharmD [address] [place] [address] 01/07/2025 9:30 AM EST Clinical Support [address] [address] Azeb Hall RN 505 [place] [address] 01/11/2025 1:00 PM EST Office Visit [address] [address] Sariah Vickers ANP [address] [place] [address] 02/03/2025 11:00 AM EST Medication Management [address] [address] Yuri Pierre PharmD [address] [place] [address] documented as of this encounter Visit Diagnoses Not on filedocumented in this encounter Care Teams Hadoop Application Developer Relationship Specialty Start Date End Date Sariah Vickers ANP [address] [place] [address] PCP - General Family Medicine 09/23/19 Yuri Pierre, Dileep [address] [place] [address] Pharmacist Internal Medicine 05/05/24 Basilio Hall MD 596 [place] [address] Cardiology 05/17/24 Ron Preciado MD [address] [place] [address] Pulmonary Disease 05/17/24 documented as of this encounter
--- OUTSIDE RECORDS SUMMARY | 2024-11-12 14:09 | XMS_ITS | Encounter Summary ---
Author Organization [employer] Address 75 [facility] 7t [place] [address] Care Team Providers Care Order Processing Clerk Name Role Phone Sariah Vickers KAYLEE Primary Care Provider [phone] Yuri Pierre PharmD Unavailable [phone] Basilio Hall MD Unavailable [phone] Ron Preciado MD Unavailable [phone] Encounter Details Date Type Department Care Team (Latest Contact Info) Description 04/14/2020 Abstract [facility] CONVERSION[facility] Dental, Provider, DDS Social [...] Description 11/17/2024 9:30 AM EDT Medication Management [facility] [address] [place] [address] Yuri Pierer, PharmD 230 [place] [address] 01/07/2025 9:30 AM EST Clinical Support [facility] [address] [place] [address] Azeb Hall RN 505 [place] [address] 01/11/2025 1:00 PM EST Office Visit [facility] [address] [place] [address] Sariah Vickers ANP [address] [place] [address] 02/03/2025 11:00 AM EST Medication Management [address] [address] Yuri Pierre PharmD [address] [place] [address] documented as of this encounter Visit Diagnoses Not on filedocumented in this encounter Care Teams Order Processing Clerk Relationship Specialty Start Date End Date Sariah Vickers ANP [address] [place] [address] PCP - General Family Medicine 09/23/19 Yuri Pierre, PharmD [address] [place] [address] [phone] Pharmacist Internal Medicine 05/05/24 Basiloi Hall MD 596 [place], [place] 1589840 Cardiology 05/17/24 Ron Preciado MD [address] [place] [address] Pulmonary Disease 05/17/24 documented as of this encounter
--- OUTSIDE RECORDS SUMMARY | 2024-11-12 14:09 | XMS_ITS | Encounter Summary ---
Author Organization [employer] Address 75 [facility] 7t [place] [address] Care Team Providers Care Senior Strategy Analyst Name Role Phone Sariah Vickers Primary Care Provider [phone] Yuri Pierre PharmD Unavailable [phone] Basilio Hall MD Unavailable [phone] Ron Preciado MD Unavailable [phone] Reason for Visit * Reason Comments Med Refill Encounter Details Date Type Department Care Team (Late st Contact Info) Description 10/03/2023 Refill [facility] 230 [place] [address] Sariah Vickers ANP 230 [place], [place] [phone] Chronic SI joint pain Social History Tobacco [...] Description 11/17/2024 9:30 AM EDT Medication Management [address] [address] Yuri Pierre, PharmD [address] [place] [address] 01/07/2025 9:30 AM EST Clinical Support [address] [address] Azeb Hall, RN 505 [place] [address] 01/11/2025 1:00 PM EST Office Visit [address] [address] Sariah Vickers, ANP [address] [place] [address] 02/03/2025 11:00 AM EST Medication Management [address] [address] Yuri Pierre, PharmD [address] [place] [address] documented as of this encounter Goals Goal [...] as of this encounter Care Teams Senior Strategy Analyst Relationship Specialty Start Date End Date Sariah Vickers ANP 230 [place] [address] PCP - General Family Medicine 09/23/19 Yuri Pierre, MikeD 230 [place] [address] Pharmacist Internal Medicine 05/05/24 Basilio Hall MD 596 [place] [address] Cardiology 05/17/24 Ron Preciado MD [address] [place] [address] Pulmonary Disease 05/17/24 documented as of this encounter
--- OUTSIDE RECORDS SUMMARY | 2024-11-12 14:09 | XMS_ITS | Encounter Summary ---
Author Organization [employer] Address 75 [facility] 7t [place] [address] Care Team Providers Care Barrel Cap Setter Name Role Phone Sariah Vickers Primary Care Provider [phone] Yuri Pierre PharmD Unavailable [phone] Basilio Hall MD Unavailable [phone] Ron Preciado MD Unavailable [phone] Reason for Visit * Reason Onset Date Comments Med Refill 02/04/2024 Encounter Details Date Type Department Care Team (Late st Contact Info) Description 02/04/2024 Telephone [facility] 230 [place] [address] Sariah Vickers ANP 230 [place], [place] [phone] Med Refill Social History Tobacco Use Types [...] 50 MG tablet To be sent to: [facility] - [place], [place] - [address] [place] [address] documented in this encounter Plan of Treatment Upcoming Encounters Date Type Department Care Team ([facility] st Contact Info) Description 11/17/2024 9:30 AM EDT Medication Management [facility] [address] [place] [address] Yuri Pierre, PharmD [address] [place] [address] 01/07/2025 9:30 AM EST Clinical Support [address] [address] Azeb Hall RN 505 [place] [address] 01/11/2025 1:00 PM EST Office Visit [address] [address] Sariah Vickers ANP 230 [place], [place] 02/03/2025 11:00 AM EST Medication Management [facility] 230 [place] [address] Yuri Pierre, PharmD 230 [place], [place] documented as of this encounter Goals [...] documented as of this encounter Care Teams Barrel Cap Setter Relationship Specialty Start Date End Date Sariah Vickers ANP 230 [place] [address] PCP - General Family Medicine 09/23/19 Yuri Pierre, PharmD 230 [place] [address] Pharmacist Internal Medicine 05/05/24 Basilio Hall MD 596 [place] [address] Cardiology 05/17/24 Ron Preciado MD [address] [place] [address] Pulmonary Disease 05/17/24 documented as of this encounter
--- OUTSIDE RECORDS SUMMARY | 2024-11-12 14:09 | XMS_ITS | Encounter Summary ---
Author Organization [employer] Address 75 [facility] 7t [place] [address] Care Team Providers Care Flow Nurse Name Role Phone Sariah Vickers Primary Care Provider [phone] Yuri Pierre PharmD Unavailable [phone] Basilio Hall MD Unavailable [phone] Ron Preciado MD Unavailable [phone] Reason for Visit * Reason Onset Date Comments Durable Medical Equipment 03/15/2022 Encounter Details Date Type Department Care Team (Late st Contact Info) Description 03/15/2022 Telephone [facility] 230 [place] [address] Sariah Vickers ANP 230 [place], [place] [phone] Durable Medical Equipment Social History Tobacco Use [...] Description 11/17/2024 9:30 AM EDT Medication Management [address] [address] Yuri Pierre, Dileep [address] [place] [address] 01/07/2025 9:30 AM EST Clinical Support [address] [address] Azeb Hall, MARTIN 505 [place] [address] 01/11/2025 1:00 PM EST Office Visit [address] [address] Sariah Vickers ANP [address] [place] [address] 02/03/2025 11:00 AM EST Medication Management [address] [address] Yuri Pierre, PharmD [address] [place] [address] documented as of this encounter Visit Diagnoses Not on filedocumented in this encounter Care Teams Flow Nurse Relationship Specialty Start Date End Date Sariah Vickers ANP [address] [place] [address] PCP - General Family Medicine 09/23/19 Yuri Pierre, MikeD 230 [place] [address] Pharmacist Internal Medicine 05/05/24 Basilio Hall MD 596 [place] [address] Cardiology 05/17/24 Ron Preciado MD [address] [place] [address] Pulmonary Disease 05/17/24 documented as of this encounter
--- OUTSIDE RECORDS SUMMARY | 2024-11-12 14:09 | XMS_ITS | Encounter Summary ---
Author Organization [employer] Address 75 [facility] 7t [place] [address] Care Team Providers Care Computer Instructor Name Role Phone Sariah Vickers Primary Care Provider [phone] Yuri Pierre PharmD Unavailable [phone] Basilio Hall MD Unavailable [phone] Ron Preciado MD Unavailable [phone] Reason for Visit * Reason Comments Med Refill Encounter Details Date Type Department Care Team (Late st Contact Info) Description 10/17/2023 Refill [facility] 230 [place] [address] Sariah Vickers ANP 230 [place] [address] Neck pain Social History Tobacco Use Types [...] Description 11/17/2024 9:30 AM EDT Medication Management [address] [address] Yuri Pierre, PharmD [address] [place] [address] 01/07/2025 9:30 AM EST Clinical Support [address] [address] Azeb Hall, MARTIN 505 [place] [address] 01/11/2025 1:00 PM EST Office Visit [address] [address] Sariah Vickers, KAYLEE [address] [place] [address] 02/03/2025 11:00 AM EST Medication Management [address] [address] Yuri Pierre, PharmD [address] [place] [address] documented as of this encounter Goals Goal Patient Goal Type Associated Problems Recent Progress Patient-Stated? Author Blood Pressure < 140/90 Blood Pressure 132/88(2024 8:49 AM EDT) No iAda Ragland [employer] Record Your Blood Sugar As [...] as of this encounter Care Teams Computer Instructor Relationship Specialty Start Date End Date Sariah Vickers ANP 230 [place] [address] PCP - General Family Medicine 09/23/19 Yuri Pierre PharmD 230 [place] [address] Pharmacist Internal Medicine 05/05/24 Basilio Hall MD [address] [place] [address] Cardiology 05/17/24 Ron Preciado MD [address] [place] [address] Pulmonary Disease 05/17/24 documented as of this encounter
--- OUTSIDE RECORDS SUMMARY | 2024-11-12 14:09 | XMS_ITS | Encounter Summary ---
Author Organization [employer] Address 75 [facility] 7t [place] [address] Care Team Providers Care Quality Process Engineer Name Role Phone Sariah Vickers Primary Care Provider [phone] Yuri Pierre PharmD Unavailable [phone] Basilio Hall MD Unavailable [phone] Ron Preciado MD Unavailable [phone] Reason for Visit * Reason Comments Med Refill [facility] hasn't finished her Medbox due to missing refill for medication Gabapetin . Encounter Details Date Type Department Care Team (Late st Contact Info) Description 10/03/2023 Refill [facility] 230 [place], [place] [phone] Sariah Vickers ANP 230 [place], [place] [phone] Chronic SI joint pain Social History Tobacco [...] the past 12 months, has t he [employer] gas, oil or water company threatened to [...] Description 11/17/2024 9:30 AM EDT Medication Management [address] [address] Yuri Pierre, PharmD [address] [place] [address] 01/07/2025 9:30 AM EST Clinical Support [address] [address] Azeb Hall, MARTIN 505 [place] [address] 01/11/2025 1:00 PM EST Office Visit [address] [address] Sariah Vickers ANP 230 [place] [address] 02/03/2025 11:00 AM EST Medication Management [facility] 230 [place] [address] Yuri Pierre, PharmD 230 [place] [address] documented as of this encounter Goals Goal [...] as of this encounter Care Teams Quality Process Engineer Relationship Specialty Start Date End Date Sariah Vickers ANP [address] [place] [address] PCP - General Family Medicine 09/23/19 Yuri Pierre, PharmD [address] [place] [address] Pharmacist Internal Medicine 05/05/24 Basilio Hall MD 596 [place] [address] Cardiology 05/17/24 Ron Preciado MD [address] [place] [address] Pulmonary Disease 05/17/24 documented as of this encounter
--- OUTSIDE RECORDS SUMMARY | 2024-11-12 14:09 | XMS_ITS | Encounter Summary ---
Author Organization [employer] Address 75 [facility] 7t [place] [address] Care Team Providers Care Signals Analyst Name Role Phone Sariah Vickers Primary Care Provider [phone] Yuri Pierre PharmD Unavailable [phone] Basilio Hall MD Unavailable [phone] Ron Preciado MD Unavailable [phone] Reason for Visit * Reason Comments Med Refill Encounter Details Date Type Department Care Team (Late st Contact Info) Description 01/06/2024 Refill [facility] [address] [place] [address] Sariah Vickers ANP 230 [place] [address] Cervicalgia Social History Tobacco Use Types Packs/Day [...] Description 11/17/2024 9:30 AM EDT Medication Management [address] [address] Yuri Pierre, PharmD [address] [place] [address] 01/07/2025 9:30 AM EST Clinical Support [address] [address] Azeb Hall, MARTIN 505 [place] [address] 01/11/2025 1:00 PM EST Office Visit [address] [address] Sariah Vickers, KAYLEE [address] [place] [address] 02/03/2025 11:00 AM EST Medication Management [address] [address] Yuri Pierre, PharmD [address] [place] [address] documented as of this encounter Goals Goal [...] documented as of this encounter Care Teams Signals Analyst Relationship Specialty Start Date End Date Sariah Vickers ANP 230 [place] [address] PCP - General Family Medicine 09/23/19 Yuri Pierre PharmD [address] [place] [address] Pharmacist Internal Medicine 05/05/24 Basilio Hall MD [address] [place] [address] Cardiology 05/17/24 Ron Preciado MD [address] [place] [address] Pulmonary Disease 05/17/24 documented as of this encounter
--- OUTSIDE RECORDS SUMMARY | 2024-11-12 14:09 | XMS_ITS | Encounter Summary ---
Author Organization [employer] Address 75 [facility] 7t [place] [address] Care Team Providers Care Tankage Supervisor Name Role Phone Sariah Vickers Primary Care Provider Yuri Pierre PharmD Unavailable [phone] Basilio Hall MD Unavailable [phone] Ron Preciado MD Unavailable [phone] Encounter Details Date Type Department Care Team (Late Contact Info) Description 01/09/2022 Abstract [facility] 230 [place] [address] Dental, Provider, DDS Social History Tobacco Use [...] Department Care Team (Late Contact Info) Description 11/17/2024 9:30 AM EDT Medication Management [facility] MED[facility]INE [address] [place] [address] Yuri Pierre, PharmD 230 [place] [address] 01/07/2025 9:30 AM EST Clinical Support [facility] [address] [place] [address] Azeb Hall, MARTIN 505 [place], [place] [phone] 01/11/2025 1:00 PM EST Office Visit [facility] [address] [place] [address] Sariah Vickers ANP 230 [place] [address] 02/03/2025 11:00 AM EST Medication Management [facility] 230 [place] [address] Yuri Pierre, PharmD 230 [place] [address] documented as of this encounter Procedures Procedure [...] on filedocumented in this encounter Care Teams Tankage Supervisor Relationship Specialty Start Date End Date Sariah Vickers ANP 230 [place] [address] PCP - General Family Medicine 09/23/19 Yuri Pierre, MikeD 230 [place] [address] Pharmacist Internal Medicine 05/05/24 Basilio Hall MD 596 [place] [address] Cardiology 05/17/24 Ron Preciado MD [address] [place] [address] Pulmonary Disease 05/17/24 documented as of this encounter
--- OUTSIDE RECORDS SUMMARY | 2024-11-12 14:09 | XMS_ITS | Encounter Summary ---
Author Organization [employer] Address [address] [place] [address] 7t [place] [address] Care Team Providers Care Adjunct Faculty For Medical Terminology Name Role Phone Sariah Vickers Primary Care Provider [phone] Yuri Pierre PharmD Unavailable [phone] Basilio Hall MD Unavailable [phone] Ron Preciado MD Unavailable [phone] Reason for Visit * Reason Onset Date Comments Nurse Triage 11/01/2022 Encounter Details Date Type Department Care Team (Late st Contact Info) Description 11/01/2022 Telephone [facility] MEDICINE 230 [place] [address] Sariah Vickers ANP 230 [place] [address] Nurse Triage Social History Tobacco Use Types [...] 11/01/2022 3:51 PM EDT Triage call with [employer] [place] [id number] Pt reports blood sugars have been high [...] Description 11/17/2024 9:30 AM EDT Medication Management [facility] MEDICINE [address] [place] [address] Yuri Pierre, MikeD 230 [place] [address] 01/07/2025 9:30 AM EST Clinical Support [address] [address] Azeb Hall RN 505 [place] [address] 01/11/2025 1:00 PM EST Office Visit [address] [address] Sariah Vickers ANP 230 [place] [address] 02/03/2025 11:00 AM EST Medication Management [address] [address] Yuri Pierre, Dileep [address] [place] [address] documented as of this encounter Goals Goal Patient Goal Type Associated Problems Recent Progress Patient-Stated? Author Blood Pressure < 140/90 Blood Pressure 132/88(2024 8:49 AM EDT) No Aida Ragland PharmD Record Your Blood Sugar As Directed General No Aida Ragland PharmD Hemoglobin A1c < 7 Result Component 6.6( 1:54 PM EDT) No iAda Ragland PharmD documented as of this encounter Visit Diagnoses Not on filedocumented in this encounter Care Teams Adjunct Faculty For Medical Terminology Relationship Specialty Start Date End Date Sariah Vickers ANP [address] [place] [address] PCP - General Family Medicine 09/23/19 Yuri Pierre, PharmD [address] [place] [address] Pharmacist Internal Medicine 05/05/24 Basilio Hall MD 596 [place] [address] Cardiology 05/17/24 Ron Preciado MD [address] [place] [address] Pulmonary Disease 05/17/24 documented as of this encounter
--- OUTSIDE RECORDS SUMMARY | 2024-11-12 14:09 | XMS_ITS | Encounter Summary ---
Author Organization [employer] Address [address] [facility] 7t [place] [address] Care Team Providers Care Hand Shoes Sewer Name Role Phone Sariah Vickers Primary Care Provider [phone] Yuri Pierre PharmD Unavailable [phone] Basilio Hall MD Unavailable [phone] Ron Preciado MD Unavailable [phone] Reason for Visit * Reason Comments Med Refill Encounter Details Date Type Department Care Team (Late st Contact Info) Description 11/24/[address] [facility] MEDICINE 230 [place] [address] Sariah Vickers ANP 230 [place] [address] Vertigo Social History Tobacco Use Types Packs/Day [...] Description 11/17/2024 9:30 AM EDT Medication Management [address] [address] Yuri Pierre, PharmD [address] [place] [address] 01/07/2025 9:30 AM EST Clinical Support [address] [address] Azeb Hall, MARTIN 505 [place] [address] 01/11/2025 1:00 PM EST Office Visit [address] [address] Sariah Vickers, KAYLEE [address] [place] [address] 02/03/2025 11:00 AM EST Medication Management [address] [address] Yuri Pierre, PharmD [address] [place] [address] documented as of this encounter Goals Goal [...] documented as of this encounter Care Teams Hand Shoes Sewer Relationship Specialty Start Date End Date Sariah Vickers ANP [address] [place] [address] PCP - General Family Medicine 09/23/19 Yuri Pierre PharmD [address] [place] [address] Pharmacist Internal Medicine 05/05/24 Basilio Hall MD [address] [place] [address] Cardiology 05/17/24 Ron Preciado MD [address] [place] [address] Pulmonary Disease 05/17/24 documented as of this encounter
--- OUTSIDE RECORDS SUMMARY | 2024-11-12 14:09 | XMS_ITS | Encounter Summary ---
Author Organization [employer] Address 75 [facility] 7t [place] [address] Care Team Providers Care Pulmonary Physical Therapist Name Role Phone Sariah Vickers Primary Care Provider [phone] Yuri Pierre PharmD Unavailable [phone] Basilio Hall MD Unavailable [phone] Ron Preciado MD Unavailable [phone] Reason for Visit * Reason Comments Med Refill Encounter Details Date Type Department Care Team (Late st Contact Info) Description 02/06/2022 Refill [facility] MEDICINE 230 [place] [address] Sariah Vickers ANP 230 [place] [address] Social History Tobacco Use Types Packs/Day Years [...] 11/17/2024 9:30 AM EDT Medication Management [address] [address] Yuri Pierre, PharmD [address] [place] [address] 01/07/2025 9:30 AM EST Clinical Support [address] [address] Azeb Hall, RN 505 [place] [address] 01/11/2025 1:00 PM EST Office Visit [address] [address] Sariah Vickers ANP [address] [place] [address] 02/03/2025 11:00 AM EST Medication Management [address] [address] Yuri Pierre PharmD [address] [place] [address] documented as of this encounter Visit Diagnoses Not on filedocumented in this encounter Care Teams Pulmonary Physical Therapist Relationship Specialty Start Date End Date Sariah Vickers ANP [address] [place] [address] PCP - General Family Medicine 09/23/19 Yuri Pierre, PharmD [address] [place] [address] Pharmacist Internal Medicine 05/05/24 Basilio Hall MD 596 [place] [address] Cardiology 05/17/24 Ron Preciado MD [address] [place] [address] Pulmonary Disease 05/17/24 documented as of this encounter
--- OUTSIDE RECORDS SUMMARY | 2024-11-12 14:09 | XMS_ITS | Encounter Summary ---
Author Organization [employer] Address 75 [facility] 7t [place] [address] Care Team Providers Care Lead Quality Control Technician Name Role Phone Sariah Vickers Primary Care Provider [phone] Yuri Pierre PharmD Unavailable [phone] Basilio Hall MD Unavailable [phone] Ron Preciado MD Unavailable [phone] Encounter Details Date Type Department Care Team (Late st Contact Info) Description 02/05/2022 Abstract [facility] MEDICINE 230 [place] [address] Sariah Vickers ANP 230 [place] [address] Social History Tobacco Use Types Packs/Day Years [...] Description 11/17/2024 9:30 AM EDT Medication Management [address] [address] Yuri Pierre PharmD [address] [place] [address] 01/07/2025 9:30 AM EST Clinical Support [address] [address] Azeb Hall, RN 505 [place] [address] 01/11/2025 1:00 PM EST Office Visit [address] [address] Sariah Vickers ANP [address] [place] [address] 02/03/2025 11:00 AM EST Medication Management [address] [address] Yuri Pierre, MikeD [address] [place] [address] documented as of this encounter Visit Diagnoses Not on filedocumented in this encounter Care Teams Lead Quality Control Technician Relationship Specialty Start Date End Date Sariah Vickers ANP [address] [place] [address] PCP - General Family Medicine 09/23/19 Yuri Pierre, MikeD 230 [place] [address] Pharmacist Internal Medicine 05/05/24 Basilio Hall MD 596 [place] [address] Cardiology 05/17/24 Ron Preciado MD [address] [place] [address] Pulmonary Disease 05/17/24 documented as of this encounter
--- OUTSIDE RECORDS SUMMARY | 2024-11-12 14:10 | XMS_ITS | Encounter Summary ---
Author Organization [employer] Address 75 [facility] 7t [place] [address] Care Team Providers Care Channel Executive Name Role Phone Sariah Vickers Primary Care Provider [phone] Yuri Pierre PharmD Unavailable [phone] Basilio Hall MD Unavailable [phone] Ron Preciado MD Unavailable [phone] Reason for Visit * Reason Onset Date Comments Nurse Triage 11/08/2024 Encounter Details Date Type Department Care Team (Late st Contact Info) Description 11/08/2024 Telephone [facility] MEDICINE 230 [place] [address] Sariah Vickers ANP 230 [place] [address] Nurse Triage Social History Tobacco Use Types [...] Telephone Encounter - Natacha Matson RN - 11/08/2024 3:43 PM EDT Called pt. Via S drag out man [phone] [place]. Pt. States that she has been having [...] need to go to ED per paramedics. Advised pt. That if blood sugar drops again to call 911 for safety but, also advised pt. To come to [facility] walk in tonight or in am to regulate blood sugars. Pt. In agreement. Protocol Used: Diabetes - Low Blood Sugar (Adult) Protocol-Based Disposition: Discuss with PCP and Callback by Nurse within 1 Hour Positive Triage Questions: * Low blood glucose (70 mg/dL [3.9 mmol/l] or below) OR symptomatic, now improved with Care Advice AND cause unknown * Morning (before breakfast) blood glucose < 80 mg/dL (4.4 mmol/L) and more than once in past week * Blood glucose 70 mg/dL (3.9 mmol/l) or below, OR symptomatic, AND cause known * All higher-acuity triage questions were negative Care Advice Discussed: * Low Blood Sugar - Treatment - Eat Some (15-20 grams) Sugar Now * Low Blood Sugar - Treatment - If Patient Is Taking Precose (Acarbose) * Measure and Record Your Blood Glucose * Telephone Encounter - Patience Guthrie - 11/08/2024 3:34 PM EDT Symptom: Low Blood Sugar - Caller Reports Outcome: Schedule an urgent appointment (within 1 hour) or talk to a nurse or provider soon Reason: Getting worse The caller accepted this outcome. Contact an pt at [phone] Need drag out man documented in this encounter Plan of Treatment Upcoming Encounters Date Type Department Care Team (Late st Contact Info) Description 11/17/2024 9:30 AM EDT Medication Management [address] [address] Yuri Pierre, PharmD [address] [place] [address] 01/07/2025 9:30 AM EST Clinical Support [address] [address] Azeb Hall, MARTIN 505 [place] [address] 01/11/2025 1:00 PM EST Office Visit [address] [address] Sariah Vickers, ANP [address] [place] [address] 02/03/2025 11:00 AM EST Medication Management [facility] MEDICINE 230 [place] [address] Yuri Pierre, PharmD 230 [place] [address] documented as of this encounter Goals Goal [...] documented as of this encounter Care Teams Channel Executive Relationship Specialty Start Date End Date Sariah Vickers ANP [address] [place] [address] PCP - General Family Medicine 09/23/19 Yuri Pierre, PharmD [address] [place] [address] Pharmacist Internal Medicine 05/05/24 Basilio Hall MD 596 [place] [address] Cardiology 05/17/24 Ron Preciado MD [address] [place] [address] Pulmonary Disease 05/17/24 documented as of this encounter
--- OUTSIDE RECORDS SUMMARY | 2024-11-12 14:10 | XMS_ITS | Encounter Summary ---
Author Organization [employer] Address [address] [facility] 7t [place] [address] Care Team Providers Care Slitting And Shipping Supervisor Name Role Phone Sariah Vickers KAYLEE Primary Care Provider [phone] Yuri Pierre PharmD Unavailable [phone] Basilio Hall MD Unavailable [phone] Ron Preciado MD Unavailable [phone] Reason for Visit * Reason Comments Med Refill Encounter Details Date Type Department Care Team (Late st Contact Info) Description 10/04/2024 Refill [facility] MED & PEDS [address] [place] [address] Zakia Uriostegui, TRAVEL COUNSELOR [employer] 230 [place] [address] Type 2 diabetes mellitus with hyperglycemia (CMS/HCC) [...] 11/17/2024 9:30 AM EDT Medication Management [address] [address] Yuri Pierre, PharmD [address] [place] [address] 01/07/2025 9:30 AM EST Clinical Support [address] [address] Azeb Hall, MARTIN 505 [place] [address] 01/11/2025 1:00 PM EST Office Visit [address] [address] Sariah Vickers ANP [address] [place] [address] 02/03/2025 11:00 AM EST Medication Management [address] [address] Yuri Pierre, PharmD 230 [place] [address] documented as of this encounter Goals Goal Patient Goal Type Associated Problems Recent Progress Patient-Stated? Author Blood Pressure < 140/90 Blood Pressure 132/88(2024 8:49 AM EDT) No Phanis-Aida Medina, PharmD Record [...] documented as of this encounter Care Teams Slitting And Shipping Supervisor Relationship Specialty Start Date End Date Sariah Vickers ANP 230 [place] [address] PCP - General Family Medicine 09/23/19 Yuri Pierre, PharmD 230 [place] [address] Pharmacist Internal Medicine 05/05/24 Basilio Hall MD 596 [place] [address] Cardiology 05/17/24 Ron Preciado MD [address] [place] [address] Pulmonary Disease 05/17/24 documented as of this encounter
--- OUTSIDE RECORDS SUMMARY | 2024-11-12 14:10 | XMS_ITS | Encounter Summary ---
Author Organization [email or web address] Address [address] [facility] 7t [place] [address] Care Team Providers Care Wheel And Caster Repairer Name Role Phone Sariah Vickers KAYLEE Primary Care Provider [phone] Yuri Pierre PharmD Unavailable [phone] Basilio Hall MD Unavailable [phone] Ron Preciado MD Unavailable [phone] Reason for Visit * Reason Comments Med Refill Encounter Details Date Type Department Care Team (Late st Contact Info) Description 11/11/2024 Refill [facility] ADULT DENTAL 230 [place] [address] Yogesh Gomez, JOHN 230 [place] [address] Social History Tobacco Use Types Packs/Day Years [...] encounter Miscellaneous Notes * Telephone Encounter - Yogesh Gmoez DMD - 11/11/2024 1:03 PM EDT Approving, but needs appt for additional refills. documented in this encounter Plan of Treatment Upcoming Encounters Date Type Department Care Team ([facility] st Contact Info) Description 11/17/2024 9:30 AM EDT Medication Management [address] [address] Yuri Pierre, PharmD [address] [place] [address] 01/07/2025 9:30 AM EST Clinical Support [address] [address] Azeb Hall, RN 505 [place] [address] 01/11/2025 1:00 PM EST Office Visit [address] [address] Sariah Vickers ANP 230 [place] [address] 02/03/2025 11:00 AM EST Medication Management [facility] MEDICINE 230 [place] [address] Yuri Pierre, Dileep 230 [place] [address] documented as of this encounter Goals Goal Patient Goal Type Associated Problems Recent Progress Patient-Stated? Author Blood Pressure < 140/90 Blood Pressure 132/88(2024 8:49 AM EDT) No PhanisAida Cheng PharmD Record Your [...] documented as of this encounter Care Teams Wheel And Caster Repairer Relationship Specialty Start Date End Date Sariah Vickers ANP 230 [place] [address] PCP - General Family Medicine 09/23/19 Yuri Pierre, PharmD [address] [place] [address] Pharmacist Internal Medicine 05/05/24 Basilio Hall MD 596 [place] [address] Cardiology 05/17/24 Ron Preciado MD [address] [place] [address] Pulmonary Disease 05/17/24 documented as of this encounter
--- OUTSIDE RECORDS SUMMARY | 2024-11-12 14:10 | XMS_ITS | Encounter Summary ---
Author Organization [email or web address] Address 75 [facility] 7t [place] [address] Care Team Providers Care Field Court Researcher Name Role Phone Sariah Vickers Primary Care Provider [phone] Yuri Pierre PharmD Unavailable [phone] Basilio Hall MD Unavailable [phone] Ron Preciado MD Unavailable [phone] Reason for Visit * Reason Comments Med Refill Encounter Details Date Type Department Care Team (Late st Contact Info) Description 02/28/2023 Refill [facility] MEDICINE 230 [place] [address] Sariah Vickers ANP 230 [place] [address] Cervicalgia Social History Tobacco Use Types Packs/Day [...] Description 11/17/2024 9:30 AM EDT Medication Management [address] [address] Yuri Pierre, PharmD [address] [place] [address] 01/07/2025 9:30 AM EST Clinical Support [address] [address] Azeb Hall, RN 505 [place] [address] 01/11/2025 1:00 PM EST Office Visit [address] [address] Sariah Vickers, KAYLEE [address] [place] [address] 02/03/2025 11:00 AM EST Medication Management [address] [address] Yuri Pierre, PharmD [address] [place] [address] documented as of this encounter Goals Goal [...] Cervicalgia documented in this encounter Care Teams Field Court Researcher Relationship Specialty Start Date End Date Sariah Vickers ANP 230 [place] [address] PCP - General Family Medicine 09/23/19 Yuri Pierre, MikeD 230 [place] [address] Pharmacist Internal Medicine 05/05/24 Basilio Hall MD [address] [place] [address] Cardiology 05/17/24 Ron Preciado MD [address] [place] [address] Pulmonary Disease 05/17/24 documented as of this encounter
--- OUTSIDE RECORDS SUMMARY | 2024-11-12 14:10 | XMS_ITS | Encounter Summary ---
Author Organization [employer] Address [address] [facility] [address] 7t [place] [address] Care Team Providers Care Frame Table Operator Helper Name Role Phone Sariah Vickers KAYLEE Primary Care Provider Yuri Pierre PharmD Unavailable [phone] Basilio Hall MD Unavailable [phone] Ron Preciado MD Unavailable [phone] Encounter Details Date Type Department Care Team (Latest Contact Info) Description 11/09/2024 Travel Social History Tobacco Use Types Packs/Day [...] ([facility] st Contact Info) Description 11/17/2024 9:30 AM EDT Medication Management [address] [address] Yuri Pierre, Dileep [address] [place] [address] 01/07/2025 9:30 AM EST Clinical Support [address] [address] Azeb Hall, MARTIN 505 [place] [address] 01/11/2025 1:00 PM EST Office Visit [address] [address] Sariah Vickers ANP [address] [place] [address] 02/03/2025 11:00 AM EST Medication Management [address] [address] Yuri Pierre, PharmD [address] [place] [address] documented as of this encounter Goals Goal [...] documented as of this encounter Care Teams Frame Table Operator Helper Relationship Specialty Start Date End Date Sariah Vickers ANP 230 [place] [address] PCP - General Family Medicine 09/23/19 Yuri Pierre, MikeD [address] [place] [address] Pharmacist Internal Medicine 05/05/24 Basilio Hall MD 596 [place] [address] Cardiology 05/17/24 Ron Preciado MD [address] [place] [address] Pulmonary Disease 05/17/24 documented as of this encounter
--- OUTSIDE RECORDS SUMMARY | 2024-11-12 14:10 | XMS_ITS | Encounter Summary ---
Author Organization [employer] Address 75 [facility] 7t [place] [address] Care Team Providers Care Photography Professor Name Role Phone Sariah Vickers KAYLEE Primary Care Provider [phone] Yuri Pierre PharmD Unavailable [phone] Basilio Hall MD Unavailable [phone] Ron Preciado MD Unavailable [phone] Encounter Details Date Type Department Care Team (Late st Contact Info) Description 11/09/2024 Telephone [facility] MED & PEDS 505 [place], [place] [id number] Azeb Hall, RN 505 [place] [address] Social History Tobacco Use Types Packs/Day Years [...] Telephone Encounter - Azeb Hall RN - 11/09/2024 1:51 PM EDT TC to pt via S ID# [id number]. ESTIMATOR PRINTING Appointment r/s to 01/07/25 @ 9:30am. documented in this encounter Plan of Treatment Upcoming Encounters Date Type Department Care Team (Late st Contact Info) Description 11/17/2024 9:30 AM EDT Medication Management [address] [address] Yuri Pierre, PharmD [address] [place] [address] 01/07/2025 9:30 AM EST Clinical Support [address] [address] Azeb Hall RN 505 [place] [address] 01/11/2025 1:00 PM EST Office Visit [address] [address] Sariah Vickers ANP 230 [place] [address] 02/03/2025 11:00 AM EST Medication Management [facility] MEDICINE 230 [place] [address] Yuri Pierre, Dileep 230 [place] [address] documented as of this encounter Goals Goal [...] as of this encounter Care Teams Photography Professor Relationship Specialty Start Date End Date Sariah Vickers ANP 230 [place] [address] PCP - General Family Medicine 09/23/19 Yuri Pierre, PharmD [address] [place] [address] Pharmacist Internal Medicine 05/05/24 Basilio Hall MD 596 [place] [address] Cardiology 05/17/24 Ron Preciado MD [address] [place] [address] Pulmonary Disease 05/17/24 documented as of this encounter
--- OUTSIDE RECORDS SUMMARY | 2024-11-12 14:10 | XMS_ITS | Encounter Summary ---
Author Organization [employer] Address [address] [facility] 7t [place] [address] Care Team Providers Care Cooperative Extension Agent Name Role Phone Sariah Vickers Primary Care Provider [phone] Yuri Pierre PharmD Unavailable [phone] Basilio Hall MD Unavailable [phone] Ron Preciado MD Unavailable [phone] Reason for Visit * Reason Comments Med Refill Encounter Details Date Type Department Care Team (Late st Contact Info) Description 12/19/2022 Refill [facility] MEDICINE 230 [place] [address] Sariah Vickers ANP 230 [place] [address] Vertigo Social History Tobacco Use Types Packs/Day [...] Description 11/17/2024 9:30 AM EDT Medication Management [address] [address] Yuri Pierre, PharmD [address] [place] [address] 01/07/2025 9:30 AM EST Clinical Support [address] [address] Azeb Hall, RN 505 [place] [address] 01/11/2025 1:00 PM EST Office Visit [address] [address] Sariah Vickers, KAYLEE [address] [place] [address] 02/03/2025 11:00 AM EST Medication Management [address] [address] Yuri Pierre, PharmD [address] [place] [address] documented as of this encounter Goals Goal [...] giddiness documented in this encounter Care Teams Cooperative Extension Agent Relationship Specialty Start Date End Date Sariah Vickers ANP 230 [place] [address] PCP - General Family Medicine 09/23/19 Yuri Pierre, MikeD [address] [place] [address] Pharmacist Internal Medicine 05/05/24 Basilio Hall MD 596 [place] [address] Cardiology 05/17/24 Ron Preciado MD [address] [place] [address] Pulmonary Disease 05/17/24 documented as of this encounter
--- OUTSIDE RECORDS SUMMARY | 2024-11-12 14:10 | XMS_ITS | Encounter Summary ---
Author Organization [employer] Address 75 [facility] 7t [place] [address] Care Team Providers Care Hockey Player Name Role Phone Sariah Vickers Primary Care Provider [phone] Yuri Pierre PharmD Unavailable [phone] Basilio Hall MD Unavailable [phone] Ron Preciado MD Unavailable [phone] Reason for Visit * Reason Comments Med Refill Encounter Details Date Type Department Care Team (Late st Contact Info) Description 12/27/2022 Refill [facility] 230 [place] [address] Sariah Vickers ANP 230 [place] [address] Neck pain Social History Tobacco Use Types [...] Description 11/17/2024 9:30 AM EDT Medication Management [address] [address] Yuri Pierre, PharmD [address] [place] [address] 01/07/2025 9:30 AM EST Clinical Support [address] [address] Azeb Hall, RN 505 [place] [address] 01/11/2025 1:00 PM EST Office Visit [address] [address] Sariah Vickers, KAYLEE [address] [place] [address] 02/03/2025 11:00 AM EST Medication Management [address] [address] Yuri Pierre, PharmD [address] [place] [address] documented as of this encounter Goals Goal [...] Cervicalgia documented in this encounter Care Teams Hockey Player Relationship Specialty Start Date End Date Sariah Vickers ANP 230 [place] [address] PCP - General Family Medicine 09/23/19 Yuri Pierre, MikeD [address] [place] [address] Pharmacist Internal Medicine 05/05/24 Basilio Hall MD [address] [place] [address] Cardiology 05/17/24 Ron Preciado MD [address] [place] [address] Pulmonary Disease 05/17/24 documented as of this encounter
--- OUTSIDE RECORDS SUMMARY | 2024-11-12 14:10 | XMS_ITS | Encounter Summary ---
Author Organization [email or web address] Address 75 [facility] 7t [place] [address] Care Team Providers Care Ediphone Operator Name Role Phone Sariah Vickers Primary Care Provider Yuri Pierre PharmD Unavailable [phone] Basilio Hall MD Unavailable [phone] Ron Preciado MD Unavailable [phone] Reason for Visit * Reason Comments Med Refill Encounter Details Date Type Department Care Team (Late st Contact Info) Description 11/12/2024 Refill [facility] MED[facility]INE 230 [place] [address] Sariah Vickers ANP 230 [place] [address] Neck pain Social History Tobacco Use Types [...] Description 11/17/2024 9:30 AM EDT Medication Management [address] [address] Yuri Pierre, MikeD [address] [place] [address] 01/07/2025 9:30 AM EST Clinical Support [address] [address] Azeb Hall, MARTIN 505 [place] [address] 01/11/2025 1:00 PM EST Office Visit [address] [address] Sariah Vickers, KAYLEE [address] [place] [address] 02/03/2025 11:00 AM EST Medication Management [address] [address] Yuri Pierre, PharmD [address] [place] [address] [place] [address] documented as of this encounter Goals Goal Patient Goal Type Associated Problems Recent Progress Patient-Stated? Author Blood Pressure < 140/90 Blood Pressure 132/88(2024 8:49 AM EDT) No Piers-Gambl e, Aida, PharmD Record Your Blood Sugar As Directed General No Piers-Gambl e, Aida, PharmD Hemoglobin A1c < 7 Result Component 6.6( 1:54 PM EDT) No Piers-Gambl e, Adia, PharmD documented as of this encounter Visit Diagnoses Diagnosis Neck pain Cervicalgia documented in this encounter Additional Health Concerns Assessment Noted Time PHQ-9 Depression Total Score: 11 025 5:30 PM EDT documented as of this encounter Care Teams Ediphone Operator Relationship Specialty Start Date End Date Sariah Vickers ANP 230 [place] [address] PCP - General Family Medicine 09/23/19 Yuri Pierre, MikeD 230 [place] [address] Pharmacist Internal Medicine 05/05/24 Basilio Hall MD 5[address] [place] [address] Cardiology 05/17/24 Ron Preciado MD [address] [place] [address] Pulmonary Disease 05/17/24 documented as of this encounter
--- OUTSIDE RECORDS SUMMARY | 2024-11-12 14:10 | XMS_ITS | Encounter Summary ---
Author Organization [employer] Address 75 [facility] 7t [place] [address] Care Team Providers Care Textile Converter Name Role Phone Sariah Vickers KAYLEE Primary Care Provider [phone] Yuri Pierre PharmD Unavailable [phone] Basilio Hall MD Unavailable [phone] Ron Preciado MD Unavailable [phone] Reason for Visit * Reason Comments Med Refill Encounter Details Date Type Department Care Team (Late st Contact Info) Description 03/04/2023 Refill [facility] 230 [place] [address] Brittney Nava MD 230 [place] [address] Social History Tobacco Use Types Packs/Day Years [...] Description 11/17/2024 9:30 AM EDT Medication Management [address] [address] Yuri Pierre, PharmD [address] [place] [address] 01/07/2025 9:30 AM EST Clinical Support [address] [address] Azeb Hall, RN 505 [place] [address] 01/11/2025 1:00 PM EST Office Visit [address] [address] Sariah Vickers ANP [address] [place] [address] 02/03/2025 11:00 AM EST Medication Management [address] [address] Yuri Pierre, PharmD [address] [place] [address] documented as of this encounter Goals [...] on filedocumented in this encounter Care Teams Textile Converter Relationship Specialty Start Date End Date Sariah Vickers, KAYLEE 230 [place] [address] PCP - General Family Medicine 09/23/19 Yuri Pierre, MikeD 230 [place] [address] Pharmacist Internal Medicine 05/05/24 Basilio Hall MD 596 [place] [address] Cardiology 05/17/24 Ron Preciado MD [address] [place] [address] Pulmonary Disease 05/17/24 documented as of this encounter
--- OUTSIDE RECORDS SUMMARY | 2024-11-12 14:10 | XMS_ITS | Encounter Summary ---
Author Organization [employer] Address 75 [facility] 7t [place] [address] Care Team Providers Care Sales Office Manager Name Role Phone Sariah Vickers Primary Care Provider [phone] Yuri Pierre PharmD Unavailable [phone] Basilio Hall MD Unavailable [phone] Ron Preciado MD Unavailable [phone] Reason for Visit * Reason Onset Date Comments Appointment Request 09/03/2024 Encounter Details Date Type Department Care Team (Late st Contact Info) Description 09/03/2024 Telephone [facility] MEDICINE 230 [place] [address] Sariah Vickers ANP 230 [place], [place] [phone] Appointment Request Social History Tobacco Use Types [...] when making the apt. Contact pt at [phone] documented in this encounter Plan of Treatment Upcoming Encounters Date Type Department Care Team ([facility] st Contact Info) Description 11/17/2024 9:30 AM EDT Medication Management [facility] MEDICINE [address] [place] [address] Yuri Pierre, PharmD [address] [place] [address] 01/07/2025 9:30 AM EST Clinical Support [facility] [address] [place] [address] Azeb Hall RN 505 [place] [address] 01/11/2025 1:00 PM EST Office Visit [facility] [address] [place] [address] Sariah Vickers ANP [address] [place] [address] 02/03/2025 11:00 AM EST Medication Management [address] [address] Yuri Pierre PharmD [address] [place] [address] documented as of this encounter Goals Goal [...] as of this encounter Care Teams Sales Office Manager Relationship Specialty Start Date End Date Sariah Vickers ANP [address] [place] [address] PCP - General Family Medicine 09/23/19 Yuri Pierre, PharmD [address] [place] [address] Pharmacist Internal Medicine 05/05/24 Basilio Hall MD [address] [place] [address] Cardiology 05/17/24 Ron Preciado MD [address] [place] [address] Pulmonary Disease 05/17/24 documented as of this encounter
--- OUTSIDE RECORDS SUMMARY | 2024-11-12 14:10 | XMS_ITS | Encounter Summary ---
Author Organization [employer] Address 75 [facility] 7t [place] [address] Care Team Providers Care Client Coordinator Name Role Phone Sariah Vickers Primary Care Provider [phone] Yuri Pierre PharmD Unavailable [phone] Basilio Hall MD Unavailable [phone] Ron Preciado MD Unavailable [phone] Reason for Visit * Reason Onset Date Comments Referral 08/02/2024 Encounter Details Date Type Department Care Team (Late st Contact Info) Description 08/02/2024 Telephone [facility] MEDICINE 230 [place], [place] [phone] Sariah Vickers ANP 230 [place], [place] [phone] Referral Social History Tobacco Use Types Packs/Day [...] for vertigo therapy. Please contact pt at [phone]. (Czech Speaker) documented in this encounter Plan of Treatment Upcoming Encounters Date Type Department Care Team (Late st Contact Info) Description 11/17/2024 9:30 AM EDT Medication Management [facility] MEDICINE [address] [place] [address] Yuri Pierre, PharmD 230 [place] [address] 01/07/2025 9:30 AM EST Clinical Support [facility] MEDICINE [address] [place] [address] Azeb Hall RN 505 [place] [address] 01/11/2025 1:00 PM EST Office Visit [address] [phone] Sariah Vickers ANP [address] [place] [address] 02/03/2025 11:00 AM EST Medication Management [address] [phone] Yuri Pierre, Dileep [address] [place] [address] documented as of this encounter Goals Goal [...] as of this encounter Care Teams Client Coordinator Relationship Specialty Start Date End Date Sariah Vickers ANP [address] [place] [address] PCP - General Family Medicine 09/23/19 Yuri Pierre, PharmD [address] [place] [address] Pharmacist Internal Medicine 05/05/24 Basilio Hall MD [address] [place], [place] Cardiology 05/17/24 Ron Preciado MD [address] [place], [place] [address] Pulmonary Disease 05/17/24 documented as of this encounter
--- OUTSIDE RECORDS SUMMARY | 2024-11-12 14:10 | XMS_ITS | Encounter Summary ---
Author Organization [employer] Address 75 [facility] 7t [place] [address] Care Team Providers Care Dental Office Receptionist Name Role Phone Sariah Vickers Primary Care Provider [phone] Yuri Pierre PharmD Unavailable [phone] Basilio Hall MD Unavailable [phone] Ron Preciado MD Unavailable [phone] Reason for Visit * Reason Comments Med Refill Encounter Details Date Type Department Care Team (Late st Contact Info) Description 03/07/2023 Refill [facility] MEDICINE 230 [place] [address] Sariah Vickers ANP 230 [place] [address] Vertigo Social History Tobacco Use Types Packs/Day [...] Description 11/17/2024 9:30 AM EDT Medication Management [address] [address] Yuri Pierre, PharmD [address] [place] [address] 01/07/2025 9:30 AM EST Clinical Support [address] [address] Azeb Hall, RN 505 [place] [address] 01/11/2025 1:00 PM EST Office Visit [address] [address] Sariah Vickers, KAYLEE [address] [place] [address] 02/03/2025 11:00 AM EST Medication Management [address] [address] Yuri Pierre, PharmD [address] [place] [address] documented as of this encounter Goals Goal [...] giddiness documented in this encounter Care Teams Dental Office Receptionist Relationship Specialty Start Date End Date Sariah Vickers ANP 230 [place] [address] PCP - General Family Medicine 09/23/19 Yuri Pierre, MikeD [address] [place] [address] Pharmacist Internal Medicine 05/05/24 Basilio Hall MD 596 [place] [address] Cardiology 05/17/24 Ron Preciado MD [address] [place] [address] Pulmonary Disease 05/17/24 documented as of this encounter
--- OUTSIDE RECORDS SUMMARY | 2024-11-12 14:10 | XMS_ITS | Encounter Summary ---
Author Organization [employer] Address [address] [facility] [address] 7t [place] [address] Care Team Providers Care Sustainability Communicator Name Role Phone Sariah Vickers KAYLEE Primary Care Provider [phone] Yuri Pierre PharmD Unavailable [phone] Basilio Hall MD Unavailable [phone] Ron Preciado MD Unavailable [phone] Encounter Details Date Type Department Care Team (Latest Contact Info) Description 11/10/2024 Travel Social History Tobacco Use Types Packs/Day [...] Health Care Facility st Contact Info) Description 11/17/2024 9:30 AM EDT Medication Management [address] [address] Yuri Pierre, Dileep [address] [place] [address] 01/07/2025 9:30 AM EST Clinical Support [address] [address] Azeb Hall, MARTIN 505 [place] [address] 01/11/2025 1:00 PM EST Office Visit [address] [address] Sariah Vickers ANP [address] [place] [address] 02/03/2025 11:00 AM EST Medication Management [address] [address] Yuri Pierre, PharmD [address] [place] [address] documented as of this encounter Goals Goal [...] documented as of this encounter Care Teams Sustainability Communicator Relationship Specialty Start Date End Date Sariah Vickers ANP 230 [place] [address] PCP - General Family Medicine 09/23/19 Yuri Pierre, MikeD [address] [place] [address] Pharmacist Internal Medicine 05/05/24 Basilio Hall MD 596 [place] [address] Cardiology 05/17/24 Ron Preciado MD [address] [place] [address] Pulmonary Disease 05/17/24 documented as of this encounter
--- OUTSIDE RECORDS SUMMARY | 2024-11-12 14:10 | XMS_ITS | Encounter Summary ---
Author Organization [employer] Address 75 [facility] 7t [place] [address] Care Team Providers Care Geospatial Engineer Name Role Phone Anthony Ruiz Primary Care Provider [phone] Yuri Pierre PharmD Unavailable [phone] Basilio Hall MD Unavailable [phone] Ron Preciado MD Unavailable [phone] Encounter Details Date Type Department Care Team (Late st Contact Info) Description 09/28/2024 Orders Only [facility] MEDICINE 230 [place] [address] Anthony Ruiz ANP 230 [place] [address] Social History Tobacco Use Types Packs/Day Years [...] Description 11/17/2024 9:30 AM EDT Medication Management [address] [address] Yuri Pierre, PharmBear [address] [place] [address] 01/07/2025 9:30 AM EST Clinical Support [address] [address] Azeb Hall, MARTIN 505 [place] [address] 01/11/2025 1:00 PM EST Office Visit [address] [address] Anthony Ruiz ANP [address] [place] [address] 02/03/2025 11:00 AM EST Medication Management [address] [address] Yuri Pierre, PharmD [address] [place] [address] documented as of this encounter Goals Goal [...] PM EDT Narrative 10/09/2024 1:20 PM EDT [place] [address] [address] Scan Report Signed Patient: Nuvia Fay MR #: [id number] : [id number] Acct:[id number] Age/Sex: 64 / F ADM Date: 10/08/24 Loc: .CT Attending Dr: Ron Preciado MD Ordering Physician: Ron Preciado MD Date of Service: 10/08/24 Procedure(s): CT lung screening Accession Number(s): [id number] cc: Ron Preciado MD; ANTHONY RUIZ NP Report Number: [id number]: Total DLP = 64.00 mGy-cm CLINICAL HISTORY: [...] 10/09/24 1319 DD/ 1318 TD/TT: 10/09/24 1318 Jig And Fixture Builder Apprentice: Procedure Note Donotuseinterpreter, Image - 10/09/[address] [address] [address] Scan Report Signed Patient: Nuvia Fay EMR #: [id number] : 1Acct:[id number] Age/Sex: 64 / FADM Date: 10/08/24 Loc: HO.CT Attending Dr: Ron Preciado MD Ordering Physician: Ron Preciado MD Date of Service: 10/08/24 Procedure(s): CT lung screening Accession Number(s): [id number] cc: Ron Preciado MD; ANTHONY RUIZ NP Report Number: [id number]: Total DLP = 64.00 mGy-cm CLINICAL HISTORY: [...] 10/09/24 1319 DD/ 1318 TD/TT: 10/09/24 1318 Jig And Fixture Builder Apprentice: [facility] External Provider IMG CT PROCEDURES Edited Result - Final documented in this encounter Visit Diagnoses Not on filedocumented in this encounter Additional Health Concerns Assessment Noted Time PHQ-9 Depression Total Score: 12 024 2:58 PM EDT documented as of this encounter Care Teams Geospatial Engineer Relationship Specialty Start Date End Date Anthony Ruiz, KAYLEE 230 [place] [address] PCP - General Family Medicine 09/23/19 Yuri Pierre, MikeD 230 [place] [address] Pharmacist Internal Medicine 05/05/24 Basilio Hall MD 596 [place] [address] Cardiology 05/17/24 Ron Preciado MD [address] [place] [address] Pulmonary Disease 05/17/24 documented as of this encounter
--- OUTSIDE RECORDS SUMMARY | 2024-11-12 14:10 | XMS_ITS | Encounter Summary ---
Author Organization [employer] Address 75 [facility] 7t [place] [address] Care Team Providers Care Metal Mockup Maker Name Role Phone Sariah Vickers Primary Care Provider [phone] Yuri Pierre PharmD Unavailable [phone] Basilio Hall MD Unavailable [phone] Ron Preciado MD Unavailable [phone] Reason for Visit * Reason Onset Date Comments Nurse Triage 01/14/2023 Encounter Details Date Type Department Care Team (Late st Contact Info) Description 01/14/[address] [facility] MEDICINE 230 [place] [address] Sariah Vickers ANP 230 [place] [address] Nurse Triage Social History Tobacco Use Types [...] 01/14/2023 9:26 AM EST Called pt. Via [employer] oleomargarine maker [phone] Kelly. Pt. States that she has been having a fire feeling in her legs. Its like A burning that goes down her legs . Pt. Unsure if it because of her Diabetes. Pt. Went to [facility] for pain on her left side [...] Will send note to clinical home care scheduler to have note put in chart . [...] now, pt was seen at [facility] on 01/13 for pain in leg. Pt is still symptomatic The caller accepted this outcome Please contact pt at [phone] (cone worker needed) documented in this encounter Plan of Treatment Upcoming Encounters Date Type Department Care Team (Late st Contact Info) Description 11/17/2024 9:30 AM EDT Medication Management [address] [address] Yuri Pierre, Dileep [address] [place] [address] 01/07/2025 9:30 AM EST Clinical Support [address] [address] Azeb Hall, RN 505 [place] [address] 01/11/2025 1:00 PM EST Office Visit [address] [address] Sariah Vickers ANP [address] [place] [address] 02/03/2025 11:00 AM EST Medication Management [address] [address] Yuri Pierre, PharmD [address] [place] [address] documented as of this encounter Goals Goal Patient Goal Type Associated Problems Recent Progress Patient-Stated? Author Blood Pressure < 140/90 Blood Pressure 132/88(2024 8:49 AM EDT) No Aida Ragland PharmD Record Your Blood Sugar As Directed General No Aida Ragland PharmD Hemoglobin A1c < 7 Result Component 6.6(08/28/202 5 1:54 PM EDT) Aida Ernst PharmD documented as of this encounter Visit Diagnoses Not on filedocumented in this encounter Care Teams Metal Mockup Maker Relationship Specialty Start Date End Date Sariah Vickers ANP 230 [place] [address] PCP - General Family Medicine 09/23/19 Yuri Pierre, MikeD 230 [place] [address] Pharmacist Internal Medicine 05/05/24 Basilio Hall MD [address] [place] [address] Cardiology 05/17/24 Ron Preciado MD [address] [place] [address] Pulmonary Disease 05/17/24 documented as of this encounter
--- OUTSIDE RECORDS SUMMARY | 2024-11-12 14:10 | XMS_ITS | Encounter Summary ---
Author Organization [employer] Address 75 [facility] 7t [place] [address] Care Team Providers Care Braided Rug Maker Name Role Phone Sariah Vickers Primary Care Provider [phone] Yuri Pierre PharmD Unavailable [phone] Basilio Hall MD Unavailable [phone] Ron Preciado MD Unavailable [phone] Reason for Visit * Reason Onset Date Comments Med Refill 03/04/2023 Encounter Details Date Type Department Care Team (Late st Contact Info) Description 03/04/2023 Telephone [facility] MEDICINE 230 [place], [place] [phone] Sariah Vickers ANP 230 [place], [place] [phone] Med Refill Social History Tobacco Use Types [...] 50 MG tablet To be sent to: [facility] - [place], [place] - [address] [place] [address] documented in this encounter Plan of Treatment Upcoming Encounters Date Type Department Care Team ([facility] st Contact Info) Description 11/17/2024 9:30 AM EDT Medication Management [address] [address] Yuri Pierre, PharmD [address] [place] [address] 01/07/2025 9:30 AM EST Clinical Support [address] [address] Azeb Hall RN 505 [place] [address] 01/11/2025 1:00 PM EST Office Visit [address] [address] Sariah Vickers, ANP [address] [place] [address] 02/03/2025 11:00 AM EST Medication Management [facility] MEDICINE 230 [place], [place] [phone] Yuri Pierre, PharmD 230 [place], [place] documented as of this encounter Goals [...] on filedocumented in this encounter Care Teams Braided Rug Maker Relationship Specialty Start Date End Date Sariah Vickers ANP 230 [place] [address] PCP - General Family Medicine 09/23/19 Yuri Pierre, PharmD 230 [place] [address] Pharmacist Internal Medicine 05/05/24 Basilio Hall MD [address] [place] [address] Cardiology 05/17/24 Ron Preciado MD [address] [place] [address] Pulmonary Disease 05/17/24 documented as of this encounter
--- OUTSIDE RECORDS SUMMARY | 2024-11-12 14:10 | XMS_ITS | Clinical Summary ---
Author Organization [employer] Address [address] [place] [address] Care Team Providers Care Submarine Operator Name Role Phone Anthony Ruiz KAYLEE Primary Care Provider [phone] Yuri Pierre PharmD Unavailable [phone] Basilio Hall MD Unavailable [phone] Ron Preciado MD Unavailable [phone] Allergies Active Allergy Reactions Criticality Noted [...] mouth in the morning. Active Lactobacillus-In ulin ([facility] InteliCloud [facility]) capsule 023 Active Xolair 150 MG/ML [...] Type 2 diabetes mellitus with hyperlipidemia (CMS/HCC) ([facility]) USE DIRECTED THREE TIMES DAILY 100 each 5 025 Active amLODIPine (Norvasc) 10 MG tablet TAKE 1 TABLET BY MOUTH EVERY EVENING 90 tablet 1 Active montelukast (Singulair) 10 MG tablet TAKE 1 TABLET BY MOUTH EVERY EVENING 90 tablet 1 Active levothyroxine (Synthroid, Levoxyl) 75 MCG tabletIndication s:Hypothyroidism , unspecified TAKE 1 TABLET BY MOUTH EVERY MORNING 90 tablet 4 Active Continuous Glucose [employer] (FreeStyle Jalil 3 [place]) device 1 each Once per day. Use as directed for CGM 1 each Active Continuous Glucose Sensor (FreeStyle Jalil 3 Plus Sensor) misc 1 each every 15 days. Apply 1 every 15 days as directed for CGM 2 each 11 Active Ketotifen Fumarate ( Ketotifen Fumarate) 0.035 % solutionIndicati ons:Allergic conjunctivitis of both eyes Administer 1 drop into affected eye(s) 2 times daily. 10 mL 5 025 Active semaglutide (Ozempic) 2 MG/1.5ML solution pen-injectorIndi cations:Type 2 diabetes mellitus with hyperlipidemia ([facility]/HCC) ([facility]) Inject 0.5 mg under the skin 1 (one) time per week. 1 each 12 Active insulin lispro (HumaLOG KWIKPEN) 100 UNIT/ML injectionIndicat ions:Type 2 diabetes mellitus with hyperlipidemia (CMS/HCC) ([facility]) Take 4-6 units as needed if BG high while taking prednisone; As needed as directed by provider 6 mL 1 Active hydrocortisone (Anusol-HC) 2.5 % rectal cream APPLY 1 APPLICATORFUL RECTALLY TWICE DAILY FOR FOR HEMORRHOIDS Active busPIRone (Buspar) 15 MG tablet Take 1 tablet by mouth every 6 (six) hours during the day. 025 Active glucagon (Baqsimi Two Pack) 3 MG/DOSE nasal powderIndication s:Type 2 diabetes mellitus with diabetic neuropathy, with long-term current use of insulin ([facility]) Administer 3 mg into affected [...] ONCE DAILY NEEDED FOR PAIN 100 g 025 Active TRUEplus Lancets 33G miscIndications: Type 2 diabetes mellitus with hyperglycemia ([facility]) TEST BLOOD SUGAR FOUR TIMES [...] MOUTH AT BEDTIME 30 capsule 025 Active ipratropium-albu terol (Duo-Neb) 0.5-2.5 mg/3 [...] EVERY 6 HOURS NEEDED 120 tablet Active Glutose 15 40 % gel oral gel Take 15 g by mouth if needed for low blood sugar. 60 g 2 Active Blood Glucose Monitoring Suppl (FreeStyle Lite) w/Device kit 1 each 3 times daily. 1 kit Active Denta 5000 Plus 1.1 % cream APPLY TO TEETH TWICE DAILY DIRECTED 102 g Active potassium chloride CR (Klor-Con M20) 20 MEQ ER tablet TAKE 1 TABLET BY MOUTH TWICE DAILY IN THE MORNING AND IN THE EVENING 180 tablet 1 025 2024 Discontinued(R eorder (will not trigger notification to Pharmacy)) Sodium Fluoride (PreviDent 5000 Booster Plus) 1.1 % paste Apply 1 Application. to teeth 2 times daily. 112 g 3 025 2024 Discontinued fluticasone (Flonase) 50 MCG/ACT nasal spray INSTILL 2 SPRAYS IN EACH NOSTRIL ONCE DAILY IN THE MORNING 16 g 3 2024 Discontinued acetaminophen (Tylenol) 325 MG tabletIndication s:Neck pain TAKE 1 TO 2 TABLETS BY MOUTH EVERY 6 HOURS NEEDED 120 tablet 025 2024 Discontinued traMADol (Ultram) 50 MG tabletIndication s:Cervicalgia TAKE 1 TABLET BY MOUTH TWICE DAILY IN THE MORNING AND AT BEDTIME NEEDED FOR SEVERE PAIN 60 tablet 025 2024 Discontinued Glutose 15 40 % gel oral gel TAKE 15 GRAM BY MOUTH DIRECTED FOR LOW BLOOD SUGAR 025 2024 Discontinued(R eorder (will not trigger notification to Pharmacy)) levoFLOXacin (Levaquin) 750 MG tablet Take 1 tablet by mouth Once per day. 2024 Discontinued(T herapy completed) predniSONE (Deltasone) 20 MG tablet Take 2 tablets by mouth Once per day. 2024 Discontinued(T herapy completed) Active Problems Problem Noted Date Diagnosed Date Vaginal bleeding 11/03/2024 Assessment & Plan (11/03/2024 12:59 PM EDT): Post menopausal bleeding in patient s/p hysterectomy X 1 episode On exam, source of bleeding most likely ectactic enlarged blood vessel of inner L labia Continue to monitor Apply Vaseline to area twice daily to seal bleeding vessel Will refer to gas plant dispatcher for followup if needed Return precautions for [...] She is currently connected with services through [facility]. Pt needing additional support due to her [...] her family. She will continue services with [facility] for OP therapy and psychiatry services. clinician will be available if needed during next medical appointment. PLAN: (check all that apply) Continue with current services (defined as services in the past 12 months) . Pt is engaged with OP therapy and psychiatry services with [facility] @ [facility] Excessive attrition of teeth, generalized 2023 Right [...] her family. She will continue services with [facility] for OP therapy and psychiatry services. clinician will be available if needed during next medical appointment. PLAN: (check all that apply) Continue with current services (defined as services in the past 12 months) . Pt is engaged with OP therapy and psychiatry services with [facility] @ [facility] Fibromyalgia 07/31/2022 Asthma-COPD overlap syndrome 07/31/2022 Right [...] for possible plantar fasciitis -referred today to ssrs developer x ongoing discomfort -may need orthopedic [...] for OP individual therapy and psychiatry with [facility] at [facility]. Sees psych provider every two months and therapist bi-weekly. Pt will reach out to clinician as needed. Assessment & Plan (04/10/2023 11:08 AM EST): PLAN: (check all that apply) Behavioral Health Integration Plan Patient Self Plan Patient to reach out to [facility] team as needed Assessment & [...] PLAN: 1. Follow up with [facility]: Not recommended for follow-up 2. Patient goal is: reduce anxiousness 3. Behavioral Recommendations a. Patient will comply with medication b. Patient may request to speak with a [facility] during next PCP visit, if needed [...] organization. Date Type Department Care Team Description 11/12/2024 Refill [facility] [address] [place] [address] Anthony Ruiz ANP Neck pain 11/11/2024 Refill [facility] AD[facility]ENT[facility] [address] [place] [address] Yogesh Gomez DMD 11/10/2024 3:30 PM EDT Immunization [facility] [address] [place] [address] Yohana Quinn, RN Encounter for immunization 11/10/2024 Travel 11/09/2024 9:00 AM EDT Office Visit [facility] [address] [place] [address] Chava Presley MD Type 2 diabetes mellitus with hyperlipidemia (CMS/HCC) (Primary Dx) 11/09/2024 Telephone [facility] [address] [place] [address] Azeb Hall RN 11/09/2024 Travel 11/08/2024 Telephone [facility] [address] [place] [address] Anthony Ruiz ANP Nurse Triage 11/05/2024 2:30 PM EDT Office Visit [address] [address] Hallie Tapia MD Boils (Primary Dx) 11/05/2024 Travel 11/03/[address] [address] Anthony Ruiz ANP Results 11/01/2024 2:45 PM EDT Office Visit [address] [phone] Reta Sue MD Vaginal bleeding (Primary Dx); Dietary counseling; Exercise counseling; Class 2 obesity without serious comorbidity with body mass index (BMI) of 35.0 to 35.9 in adult, unspecified obesity type; Vulvar itching; Constipation, unspecified constipation type; Hemorrhoids, unspecified hemorrhoid type 11/01/2024 Travel 10/29/2024 Refill [facility] [address] [place] [address] Anthony Ruiz ANP Neck pain 10/26/2024 Results Follow-Up [address] [address] Anthony Ruiz ANP Thyroid Peroxidase Antibodies, Cardiolipin Antibodies (IgA,IgG,IgM) 10/25/2024 Refill [facility] [address] [place] [address] Anthony Ruiz ANP 10/23/2024 Refill [facility] [address] [facility] [place] [address] Anthony Ruiz ANP 10/22/2024 Orders Only GENERIC EXTERNAL DATA DEPARTMENT Provider, Generic External Data 10/20/2024 Results Follow-Up [facility] [address] [facility] [place] [address] Anthony Ruiz ANP Prothrombin Time-INR, C-reactive Protein, Amylase, Additional followed-up results: 7 10/19/2024 Refill [facility] [address] [place] [address] Anthony Ruiz ANP Cervicalgia 10/14/2024 1:30 PM EDT Office Visit [facility] [address] [place] [address] Anthony Ruiz ANP Type 2 diabetes mellitus with hyperlipidemia (CMS/HCC) (CMS/HCC) (Primary Dx); Chronic pain of both knees; Chronic SI joint pain; Primary osteoarthritis of both knees; Essential hypertension; Long-term current use of opiate analgesic; OKEEFE (nonalcoholic steatohepatitis); Asthma-COPD overlap syndrome (CMS/HCC) 10/14/2024 Travel 10/13/2024 10:40 AM EDT Office Visit [facility] [address] Chava Presley MD Essential hypertension (Primary Dx) 10/13/2024 Travel 10/12/2024 Orders Only GENERIC EXTERNAL DATA DEPARTMENT Provider, Generic External Data 10/09/2024 Refill [facility] [place] [address] Anthony Ruiz ANP Severe persistent asthma without complication 10/06/2024 Travel 10/04/2024 Refill [facility] [address] [place] [address] Zakia Uriostegui NP Type 2 diabetes mellitus with hyperglycemia (CMS/HCC) 10/01/2024 11:00 AM EDT Clinical Support [facility] [address] [place] [address] Azeb Hall, RN Neck pain 10/01/2024 Telephone [facility] [address] [place] [address] Azeb Hall, MARTIN 10/01/2024 Travel 09/30/2024 Telephone [facility] [address] [place] [address] Anthony Ruiz ANP Referral 09/30/2024 Telephone [facility] [address] [place] [address] Anthony Ruiz ANP Referral 09/30/2024 Refill [facility] [address] [place] [address] Anthony Ruiz ANP Chronic SI joint pain 09/28/2024 Orders Only [facility] [address] [place] [address] Anthony Ruiz ANP 09/25/2024 Refill [facility] [address] [place] [address] Anthony Ruiz ANP Chronic SI joint pain; Essential hypertension; Severe persistent asthma without complication 09/24/2024 2:00 PM EDT Office Visit [facility] [address] [place] [address] Luisa Martinez, OD Diabetes type 2, no ocular involvement (CMS/HCC) (Primary Dx); Mixed type age-related cataract, both eyes; Lesion of left lower eyelid; Presbyopia 09/24/2024 Travel 09/19/2024 Refill [facility] [address] [place] [address] Debra Faye MD Cervicalgia 09/16/2024 Refill [facility] [address] [place] [address] Zakia Uriostegui NP Type 2 diabetes mellitus with hyperglycemia (CMS/HCC); Neck pain 09/03/2024 Telephone [facility] [address] [place] [address] Anthony Ruiz ANP Appointment Request 09/02/2024 Telephone [facility] [address] [place] [address] Anthony Ruiz ANP Durable Medical Equipment 08/26/2024 Telephone [facility] [address] [place] [address] Anthony Ruiz ANP Durable Medical Equipment 08/23/2024 Refill [facility] [address] [place] [address] Anthony Ruiz ANP Type 2 diabetes mellitus with hyperglycemia ([facility]) 08/21/2024 Refill [facility] [address] [place] [address] Anthony Ruiz ANP Cervicalgia; Chronic bilateral low back pain, unspecified whether sciatica present 08/20/2024 Refill [facility] [address] [place] [address] Anthony Ruiz ANP Chronic bilateral low back pain, unspecified whether sciatica present 08/19/2024 9:00 AM EDT Office Visit [facility] [address] [place] [address] Ramon Damon MD Viral URI with cough 08/16/2024 Refill [facility] [address] [place] [address] Debra Faye MD Neck pain 08/13/2024 Orders Only [facility] [address] [place] [address] Leora Hoffman RN from Last 3 Months Immunizations Immunization Administration Dates Next Due DTaP 11/01/2010 Hep B, adult 07/14/2018,04/06/2009,06/26/2007 Influenza Injectable Quadriv alant Preservative Free IIV4 MDCK 11/22/2021 Influenza injectable quadriv alent IIV4 with preservative 11/11/2016,11/02/2014 Influenza injectable quadriv alent preservative free 10/25/2022,11/08/2020,10/26/2019,11/09,02/08/2016 Influenza, High Dose Seasona l, Preservative Free 11/11/2017 Influenza, IIV3, injectable 10/27/2023, 4 Influenza, Split (incl. phuong fied surface antigen) 10/23/2012,02/28/2012 Influenza, seasonal, injecta ble, preservative free 11/10/2024 Moderna Covid-19 Vaccine 12+ 06/12/2021, 11/17/2020,05/11/2020,04/13 Pfizer [...] Description 11/17/2024 9:30 AM EDT Medication Management [address] [address] Yuri Pierre, PharmD [address] [place] [address] 01/07/2025 9:30 AM EST Clinical Support [address] [address] Azeb Hall, RN [address] [place] [address] 01/11/2025 1:00 PM EST Office Visit [address] [address] Anthony Ruiz, KAYLEE [address] [place] [phone] 02/03/2025 11:00 AM EST Medication Management [address] [address] Yuri Pierre, PharmD [address] [place] [phone] Health Maintenance Due Date Last Done Comments CT Colonography 1960 FIT DNA/Cologuard 1960 FIT 1960 FOBT 1960 Sigmoidoscopy 1960 Alcohol/Substance Use Screening 1972 Hepatitis A Vaccines (1 of 2 - Risk 2-dose series) 08/06/1979 Pap Smear 1981 Diabetes: Foot Exam 06/12/2023 06/11/2022, 06/11/2022, 06/11/2022, Additional history exists Diabetes: Urine Protein Screening [...] Screening 07/15/2025 07/15/2024 Dental X-Ray: Bitewings 2025 08/05/19, 09/12/2023, 08/12/2022 Tobacco Screening 11/09/2025 11/09/2024 Dental X-Ray: Full Mouth 09/12/2026 09/12/2023, 09/18 [...] 06/15/2024 Hepatitis C Screening Completed 08/06/2024, 025 Influenza Vaccine Completed 11/10/2024, , 10/25/2022, Additional history exists HIB Vaccines Aged Out [...] Blood Sugar As Directed General No Phanis-Gambl eAida, PharmD Hemoglobin A1c < 7 Result Component 6.6( 1:54 PM EDT) No Phanis-Gambl eVeronicasa, PharmD Procedures Procedure Name Priority Date/Time Associated Diagnosis Comments BACTERIAL VAGINOSIS PANEL Routine 11/01/2024 12:00 AM EDT Vulvar itching LUPUS ANTICOAGULANT EVALUATION WITH REFLEX Routine 10/22/2024 10:49 AM EDT [id number] I ANTIBODIES (IGG, IGA, IGM) Routine 10/22/2024 10:49 AM EDT ACTIN (SMOOTH MUSCLE) ANTIBODY (IGG) Routine 10/22/2024 10:49 AM EDT CARDIOLIPIN AB (IGA,IGG,IGM) Routine 10/22/2024 10:49 AM EDT THYROID PEROXIDASE ANTIBODIES Routine 10/22/2024 10:49 AM EDT POCT GLYCATED HEMOGLOBIN, TOTAL Routine 10/14/2024 1:54 PM EDT Type 2 diabetes mellitus with hyperlipidemia (CMS/HCC) ([facility]/HCC) POCT GLUCOSE Routine 10/14/2024 1:52 PM EDT [...] DETECTION BY PCR NOT DETECTED Not Detect [facility] BACTERIAL VAGINOSIS DETECTION BY PCR NEGATIVE Negative [facility] Comment:The BV organism targ ets [...] DETECTION BY PCR NOT DETECTED Not Detect [facility] Eufemia glab krusei PCR NOT DETECTED Not Detect [facility] Swab Vaginal structure / Unknown 11/01/2024 11/01/2024 us Reta Sue MD LAB MICROBIOLOGY - GENERAL ORD ERABLES Final Result [facility] [address] [place] [phone] * [id number] I Antibodies (IgG, IgA, IgM) (10/22/2024 10:49 AM EDT) B2 Glycoprotein I IgG Antibody <2.0 <20.0 U/mL [facility] Comment:Value Interpretation ----- < 20.0 Antibody not detected> or = 20.0 Antibody detected B2 Glycoprotein I IgM Antibody <2.0 <20.0 U/mL [facility] Comment:Value Interpretation ----- < 20.0 Antibody not detected> or = 20.0 Antibody detected B2 Glycoprotein I IgA Antibody <2.0 <20.0 U/mL [facility] Comment: Value Interpretation----- < 20.0 Antibody not detected> or = 20.0 Antibody detectedThe antiphospholipid antibody syndrome (APS) is aclinical- pathologic correlation that includes aclinical event (e.g. arterial or venous thrombosis, morbidity) and persistent positiveantiphospholipid antibodies (IgM, IgG Cardiolipin muh0OID antibodies greater than the 99th percentile;or a [...] therapy or aging.For additional information, please refer tohttp://education.Acronis/faq/NKH947(This link is being provided for informational/educational purposes only.)THIS TEST WAS PERFORMED AT:[employer]/[id number] [place] [address]BCPKGHDDEAN CASAS MD,PHD 10/22/2024 10:4 9 AM EDT 10/22/2024 10:49 AM EDT us Generic External Data Provider LAB BLOOD ORDERAB LES Final Result [facility] [address] [place] [address] [phone] * (ABNORMAL) Thyroid Peroxidase Antibodies (10/22/2024 10:49 AM EDT) Thyroid Peroxidase Antibodies >900(A) <9 IU/mL [facility] Comment:THIS TEST WAS PERFOR MED AT:[address] [place] [id number] WARREN MD 10/22/2024 10:4 9 AM EDT 10/22/2024 10:49 AM EDT Generic External Data Provider LAB BLOOD ORDERAB LES Final Result Performing Organization Address [facility] Co de Phone Number [facility] [address] [place] [phone] * (ABNORMAL) Actin (Smooth Muscle) Antibody (IgG) (10/22/2024 10:49 AM EDT) Only the most recent of2 resultswithin the time period is included. Pathologist [facility] Smooth Muscle Antibody 47(A) <20 U [facility] Comment:Reference Range: <20 U: [...] with AIH type 1.THIS TEST WAS PERFORMED AT:[employer] [place] [address]BMAVDOD W. MASON,MD,PHD 10/22/2024 10:4 9 AM EDT 10/22/2024 10:49 AM EDT us Generic External Data Provider LAB BLOOD ORDERAB LES Final Result Performing Organization Address [facility]/ZIP Co de Phone Number [facility] [address] [place] [phone] * Lupus Anticoagulant Evaluation with Reflex (10/22/2024 10:49 AM EDT) Pathologist [facility] Lupus Interpretation see note [facility] Comment:A Lupus Anticoagulan t is not detected.Reference Range: Not DetectedFor additional information, please refer tohttp://education.Acronis/faq/TOI80h1(This link is being provided for informational/educational purposes only.)This interpretation is based on the following testresults. PTT (LAC) Screen 33 <=40 sec [facility] DRVVT Screen 35 <=45 sec [facility] Comment:THIS TEST WAS PERFOR MED AT:[employer]/[facility] [place] [address]BPAHCGHDEAN CASAS MD,PHD dRVVT Confirmation [facility] dRVVT 1:1 Mix [facility] DRVVT 1:1 Mix Interpretation [facility] Hexagonal Phase Neutralization [facility] Thrombin Clotting Time [facility] 10/22/2024 10:4 9 AM EDT 10/22/2024 10:49 AM EDT us Generic External Data Provider LAB BLOOD ORDERAB LES Final Result [facility] [address] [place] [phone] * Cardiolipin Antibodies (IgA,IgG,IgM) (10/22/2024 10:49 AM EDT) Cardiolipin Antibody (IgG) <2.0 GPL-U/mL [facility] Comment:Value Interpretation ----- < 20.0 Antibody not detected> or = 20.0 Antibody detected Cardiolipin Antibody (IgM) <2.0 MPL-U/mL [facility] Comment: Value Interpretation----- < 20.0 Antibody not detected> or = 20.0 Antibody detectedThe antiphospholipid antibody syndrome (APS) is aclinical- pathologic correlation that includes aclinical event (e.g. arterial or venous thrombosis, morbidity) and persistent positiveantiphospholipid antibodies (IgM, IgG Cardiolipin [id number] antibodies greater than the 99th percentile; ora [...] therapy or aging.For additional information, please refer tohttp://education.Acronis/faq/LMI293(This link is being provided for informational/educational purposes only.)THIS TEST WAS PERFORMED AT:[address] [place] [id number] WARREN MD 10/22/2024 10:4 9 AM EDT 10/22/2024 10:49 AM EDT [facility] [place] Data Provider LAB BLOOD ORDERAB LES Final Result [facility] [address] [place] [phone] * (ABNORMAL) POCT HGB A1C (10/14/2024 1:54 PM EDT) Hemoglobin A1C 6.6(A) 4.0 - 5.7 % QC Media Lot # [id number] Lot# Expiration Date [id number] Blood 10/14/2024 1:54 PM EDT us Anthony PAGE POINT OF CARE TEST ENTER/EDIT OR DERABLES Final Result * POCT Glucose (10/14/2024 1:52 PM EDT) Glucose Blood, POC 121 60 - 200 mg/dL QC Media Lot # [id number] Lot# Expiration Date [id number] Blood Capillary blood specimen / Unknown 10/14/2024 1:52 PM EDT us Anthony Ruiz ANP POINT OF CARE TEST ENTER/EDIT OR DERABLES Final Result * (ABNORMAL) TSH with Reflex to Free T4 (10/12/2024 2:10 PM EDT) TSH reflex Free T4 6.80(H) 0.32 - 4.0 uIU/mL [facility] 10/12/2024 2:10 PM EDT 10/12/2024 2:10 PM EDT Generic External Data Provider LAB BLOOD ORDERAB LES Final Result Performing Organization Address [facility] Co de Phone Number [facility] [address] [place] [address] [phone] * Prothrombin Time-INR (10/12/2024 2:10 PM EDT) Prothrombin Time 10.9 10.9 - 12.4 SEC [facility] INTERNATIONAL NORM RATIO 1.0 0.9 - 1.1 [facility] Comment:INTERNATIONAL NORMAL IZED RATIO [...] 2:10 PM EDT 10/12/2024 2:10 PM EDT [employer] External Data Provider LAB BLOOD ORDERAB LES Final Result Performing Organization Address [facility] Co de Phone Number [facility] [address] [place] [address] [phone] * C-reactive Protein (10/12/2024 2:10 PM EDT) C Reactive Protein 0.31 < or = 0.50 mg/dL [facility] 10/12/2024 2:10 PM EDT 10/12/2024 2:10 PM EDT us Generic External Data Provider LAB BLOOD ORDERAB LES Final Result [facility] [address] [place] [address] [phone] * (ABNORMAL) REX Screen,IFA, with Reflex to Titer and Pattern (10/12/2024 2:10 PM EDT) Anti Nuclear Antibody Screen POSITIV E(A) NEGATIVE [facility] Comment:REX IFA is a first l ine screen for detecting thepresence of up to approximately 150 autoantibodies invarious autoimmune diseases. A positive REX IFA resultis suggestive of autoimmune disease and reflexes totiter and pattern. Further laboratory testing may beconsidered if clinically indicated.For additional information, please refer tohttp://education.[employer]/faq/FFK269(This link is being provided for informational/educational purposes only.)THIS TEST WAS PERFORMED AT:[address] [place] [phone] WARREN MD REX Titer 1:1280( A) titer [facility] Comment:Reference Range <1:4 0 Negative 1:40-1:80 Low Antibody Level >1:80 Elevated Antibody Level REX Pattern Nuclear , Homogen eous(A) [facility] Comment:Homogeneous pattern is associated with systemic lupuserythematosus (SLE), drug-induced lupus and juvenileidiopathic arthritis.AC-1: HomogeneousInternational Consensus on REX Patterns(https://doi.org/10.1515/cmjq-4378-4681)THIS TEST WAS PERFORMED AT:[address] [place] [address]HERNAN WARREN MD REX TITER 2 (REF LAB) [facility] REX Pattern 2 [facility] REX TITER 3 [facility] REX PATTERN 3 [facility] 10/12/2024 2:10 PM EDT 10/12/2024 2:10 PM EDT us Generic External Data Provider LAB BLOOD ORDERAB LES Final Result Performing Organization Address [facility] Co de Phone Number [facility] [address] [place] [phone] * T4, Free (10/12/2024 2:10 PM EDT) Free T4 (Free Thyroxine) 0.99 0.71 - 1.85 ng/dL [facility] 10/12/2024 2:10 PM EDT 10/12/2024 2:10 PM EDT Generic External Data Provider LAB BLOOD ORDERAB LES Final Result Performing Organization Address [facility] Co de Phone Number [facility] [address] [place] [address] [phone] * Lipase (10/12/2024 2:10 PM EDT) Lipase 20 8 - 78 U/L [facility] 10/12/2024 2:10 PM EDT 10/12/2024 2:10 PM EDT Generic External Data Provider LAB BLOOD ORDERAB LES Final Result Performing Organization Address [facility] de Phone Number [facility] [address] [place] [phone] * (ABNORMAL) Hemoglobin A1c (10/12/2024 2:10 PM EDT) Hemoglobin A1c 6.5(H) <6.0 % [facility] Comment:Hemoglobin A1C Refer ence Range Adults: 4.8 - 6.0 % Non diabetic: < 6.0 % Goal: < 7.0 %Additional Action Suggested: > 8.0 %Note: Hemoglobin A1c results are invalid for patients with abnormal amounts of HbF. Blood transfusions may impact the HbA1c concentration in the patient sample. Estimated Average Glucose 140 mg/dL [facility] Comment:eAG = Estimated ave rage glucose which is %A1C expressed asaverage glucose, using the formula of the K5T-RnwrmkhPkepoyu Glucose study (ADAG), Diabetes Care, Vol.31,#8,2007 10/12/2024 2:10 PM EDT 10/12/2024 2:10 PM EDT us Generic External Data Provider LAB BLOOD ORDERAB LES Final Result Performing Organization Address [facility] Co de Phone Number [facility] [address] [place] [address] [phone] * Ferritin (10/12/2024 2:10 PM EDT) Ferritin 69 10 - 250 ng/mL [facility] 10/12/2024 2:10 PM EDT 10/12/2024 2:10 PM EDT us Generic External Data Provider LAB BLOOD ORDERAB LES Final Result Performing Organization Address [facility] Co de Phone Number [facility] [address] [place] [address] [phone] * Amylase (10/12/2024 2:10 PM EDT) Amylase 36 28 - 100 U/L [facility] 10/12/2024 2:10 PM EDT 10/12/2024 2:10 PM EDT Generic External Data Provider LAB BLOOD ORDERAB LES Final Result Performing Organization Address [facility] Co de Phone Number [facility] [address] [place] [phone] * CT Lung Screening Low dose (10/09/2024 1:18 PM EDT) Anatomical Region Laterality Modality Lung Computed Tomogra phy 10/09/2024 1:18 PM EDT Narrative 10/09/2024 1:20 PM EDT [address] [address] [address] Scan Report Signed Patient: Nuvia Fay MR #: [id number] : 1960 Acct:[id number] Age/Sex: 64 / F ADM Date: 10/08/24 Loc: HO.CT Attending Dr: Ron Preciado MD Ordering Physician: Ron Preciado MD Date of Service: 10/08/24 Procedure(s): CT lung screening Accession Number(s): [id number] cc: Ron Preciado MD; ANTHONY RUIZ NP Report Number: [id number]: Total DLP = 64.00 mGy-cm CLINICAL HISTORY: [...] 10/09/24 1319 DD/ 1318 TD/TT: 10/09/24 1318 Contract Attorney: Procedure Note Donotuseinterpreter, Image - 10/09/[address] [address] [address] Scan Report Signed Patient: Nuvia Fay EMR #: [id number] : 1960cct:[id number] Age/Sex: 64 / FADM Date: 10/08/24 Loc: HO.CT Attending Dr: Ron Preciado MD Ordering Physician: Ron Preciado MD Date of Service: 10/08/24 Procedure(s): CT lung screening Accession Number(s): [id number] cc: Ron Preciado MD; ANTHONY RUIZ NP Report Number: [id number]: Total DLP = 64.00 mGy-cm CLINICAL HISTORY: [...] OV> 10/09/24 1319 DD/ 1318 TD/TT: 10/09/241317 Contract Attorney: [facility] External Provider IMG CT PROCEDURES Edited [...] - 10/01/2024 10:43 AM EDT .UTOX cup Lot#[id number] Exp. 11/23/25 Internal Pass Control Anthony PAGE POINT OF CARE TEST ENTER/EDIT OR DERABLES Final Result * Influenza A (ID NOW Rapid Molecular) (08/19/2024 9:20 AM EDT) Influenza A Negative Negative, Indeterminate [facility] Swab 08/19/2024 9:20 AM EDT Ramon Damon MD POINT OF CARE TEST ENTER/EDIT OR DERABLES Final Result Performing Organization Address [facility]/ZIP Co de Phone Number [facility] [address] [place] [phone] * Influenza B (ID NOW Rapid Molecular) (08/19/2024 9:19 AM EDT) Pathologist [facility] Influenza B Negative Negative, Indeterminate [facility] Swab 08/19/2024 9:19 AM EDT Ramon Damon MD POINT OF CARE TEST ENTER/EDIT OR DERABLES Final Result Performing Organization Address [facility] Co de Phone Number [facility] [address] [place] [phone] * POCT Rapid COVID Ag (08/19/2024 9:11 AM EDT) Rapid COVID Ag Negative Swab 08/19/2024 9:11 AM EDT Ramon Damon MD POINT OF CARE TEST ENTER/EDIT OR DERABLES Final Result * Hepatitis C Antibody (DAYA JORDAN) (08/06/2024) Hepatitis C Ab Nonreactive Blood 08/06/2024 Historical Provider LAB BLOOD ORDERABLES Kelsey l Result * HIV Ab/Ag (DAYA AVALOS) (08/06/2024) HIV Ag/Ab Nonreactive Blood 08/06/2024 [facility] Provider LAB BLOOD ORDERABLES Kelsey l Result * (ABNORMAL) Lipid Panel, Standard (06/18/2024 10:18 AM EDT) Triglycerides 122 <150 mg/dL [facility] Comment:Desirable Triglyceri de: less than 150 mg/dLBorderline High Triglyceride 150-199 mg/dLHigh Triglyceride: 200-499 mg/dLVery High Triglyceride: greater than or equal to 5OO mg/dL Cholesterol 216(H) <200 mg/dL [facility] Comment:Desirable Cholestero l: less than 200 mg/dLBorderline High Cholesterol: 200-239 mg/dLHigh Cholesterol: greater than 239 mg/dL LDL Cholesterol Calculated 128(H) <100 mg/dL [facility] Comment:Desirable LDL: less than 100 mg/dLNear Optimal/Above Optimal LDL: 110- 129 mg/dLBorderline High LDL: 130-159 mg/dLHigh LDL: 160-189 mg/dLVery High LDL: greater than or equal to 190 mg/dL HDL Cholesterol 64 >40 mg/dL [facility] Comment:Desirable HDL: great er than 40 mg/dL Note: This HDL assay may give artificially low results in patients with liver disease. Blood Venous blood specimen / Unknown 06/18/2024 10:18 AM EDT 06/18/2024 11:08 AM EDT [facility] Alee PAGE LAB BLOOD ORDERABLES Final Resul t [facility] [address] [place] [address] [phone] * BI Mammogram Screening Tomosynthesis Bilateral (04/12/2024 1:48 PM EST) Anatomical Region Laterality Modality Breast Bilateral Mammography 04/12/2024 1:48 PM EST Narrative 04/17/2024 12:38 PM EST [facility] [address] [place] [address] Mammography Report Signed Patient: Nuvia Fay MR #: [id number] : 1960 Acct:[id number] Age/Sex: 63 / F ADM Date: 04/12/24 Loc: HO.MAMMO Attending Dr: Monica Lozano CNM Ordering Physician: Monica Lozano CNM Results: 2Beni gn Findings Date of Service: 04/12/24 Follow Up: 1 Year From Orig inal Mammogram Procedure(s): MM tomosynthesis screening BI Accession Number(s): [id number] cc: Monica Lozano CNM; ANTHONY RUIZ NP [...] 04/17/24 1235 DD/ 1348 TD/TT: 04/12/24 1405 Contract Attorney: Procedure Note Donotuseinterpreter, Image - 04/17/2024 [facility] [address] [place], [place] [address] Mammography Report Signed Patient: Nuvia Fay EMR #: [id number] : 1960cct:[id number] Age/Sex: 63 / FADM Date: 04/12/24 Loc: HO.MAMMO Attending Dr: Monica Lozano CNM Ordering Physician: Monica LozanoMResults: 2Beni gn Findings Date of Service: 04/12/24Follow Up: 1 Year From Orig inal Mammogram Procedure(s): MM tomosynthesis screening BI Accession Number(s): [id number] cc: Monica Lozano CNM; ANTHONY RUIZ NP [...] 04/17/24 1235 DD/ 1348 TD/TT: 04/12/24 1405 Contract Attorney: [facility] External Provider IM BI PROCEDURES Edited Result - Final * Albumin, Random Urine W/Creatinine (01/02/2024 8:44 AM EST) Creatinine, Urine 47.20 mg/dL [facility] Microalbumin Urine 7.0 mg/L [facility] Microalbum Creatinine Ratio Ur 14.8 <30 ug/mg cr [facility] Comment:Albumin/Creatinine R atio Reference Ranges: Normal: < 30 ug/mg creatinine Microalbuminuria: 30 - 300 ug/mg creatinineClinical Albuminuria: > 300 ug/mg creatinine Urine (Urine, Random) 01/02/2024 8:44 AM EST 01/02/2024 11:09 AM EST [facility] LAB URINE ORDERABLES Final Resul t [facility] [address] [place] [phone] * (ABNORMAL) Colonoscopy (12/27/2021) Pathologist [facility] [place] Colonoscopy Abnormal(A ) Normal Historical Provider HEALTH MAINTENANCE Final Result * HPV E6/E7 RFLX ALFRED 16 18/45 (05/09/2020 11:19 AM EDT) HPV mRNA E6/E7 rflx Not Detected Not Detected [facility] Comment: Methodology: Director Funds Development-Mediated Amplification This assay detects E6/E7 viral messenger RNA (mRNA) from 14 high-risk HPV types (16,18,31,33,35,39,45,51,52,56,58,59,66,68). The analytical performance characteristics of this assay have been determined by [employer] The modifications have not been cleared or approved by the FDA. This assay has been validated pursuant to the CLIA regulations and is used for clinical purposes. For additional information, please refer to http://education.[employer]/faq/MPG003c3 (This link if provided for information/ educational purposes only.) THIS TEST WAS PERFORMED AT: [facility] [address] [place] [address] [address] [facility] [address] HERNAN WARREN MD 05/09/2020 11:1 9 AM EDT us [facility] [place] HISTORICAL/NON ORDERABLE LABS Fi nal Result [facility] [address] [place] [address], from Last 3 Months or Most Recently Relevant to Health Maintenance Insurance [facility] Care Teams Submarine Operator Relationship Specialty Start Date End Date Anthony Ruiz ANP [address] [place], [place] PCP - General Family Medicine 09/23/19 Yuri Pierre, MikeD [address] [place] [address] Pharmacist Internal Medicine 05/05/24 Basilio Hall MD [address] [place] [address] Cardiology 05/17/24 Ron Preciado MD [address] [place] [address] Pulmonary Disease 05/17/24
--- OUTSIDE RECORDS SUMMARY | 2024-11-12 14:10 | XMS_ITS | Encounter Summary ---
Author Organization [employer] Address [address] [facility] 7t [place] [address] Care Team Providers Care Hourly Sign Language Interpreter Name Role Phone Sariah Vickers Primary Care Provider [phone] Yuri Pierre PharmD Unavailable [phone] Basilio Hall MD Unavailable [phone] Ron Preciado MD Unavailable [phone] Reason for Visit * Reason Onset Date Comments Nurse Triage 12/24/2022 Encounter Details Date Type Department Care Team (Late st Contact Info) Description 12/24/2022 Telephone [facility] [address] [place] [address] Sariah Vickers ANP [address] [place] [address] Nurse Triage Social History Tobacco Use Types [...] - 12/24/2022 1:11 PM EST Called pt.via [employer] clinical leader [phone] Benjamin. Pt. States that she wants to [...] regimen and possible referral to a new Trailer Driver due to pt. Not having jeremie in [...] accepted this outcome Please contact pt at [phone] documented in this encounter Plan of Treatment Upcoming Encounters Date Type Department Care Team (Late st Contact Info) Description 11/17/2024 9:30 AM EDT Medication Management [address] [address] Yuri Pierre PharmD [address] [place] [address] 01/07/2025 9:30 AM EST Clinical Support [address] [phone] Azeb Hall, MARTIN [address] [place] [address] 01/11/2025 1:00 PM EST Office Visit [address] [address] Sariah Vickers ANP [address] [place] [address] 02/03/2025 11:00 AM EST Medication Management [address] [phone] Yuri Pierre PharmD [address] [place] [address] documented as of this encounter Goals Goal [...] on filedocumented in this encounter Care Teams Hourly Sign Language Interpreter Relationship Specialty Start Date End Date Sariah Vickers ANP [address] [place] [address] PCP - General Family Medicine 09/23/19 Yuri Pierre PharmD [address] [place] [address] Pharmacist Internal Medicine 05/05/24 Basilio Hall MD [address] [place] [address] Cardiology 05/17/24 Ron Preciado MD [address] [place] [address] Pulmonary Disease 05/17/24 documented as of this encounter
--- OUTSIDE RECORDS SUMMARY | 2024-11-12 14:11 | XMS_ITS | Encounter Summary ---
Author Organization [employer] Address 75 [facility] 7t [place] [address] Care Team Providers Care Cosmetic Account Coordinator Name Role Phone Sariah Vickers Primary Care Provider [phone] Yuri Pierre PharmD Unavailable [phone] Basilio Hall MD Unavailable [phone] Ron Preciado MD Unavailable [phone] Reason for Visit * Reason Comments Med Refill Encounter Details Date Type Department Care Team (Late st Contact Info) Description 06/30/[address] [facility] [address] [place] [address] Sariah Vickers ANP [address] [place] [address] Neck pain Social History Tobacco Use Types [...] 11/17/2024 9:30 AM EDT Medication Management [address] [address] Yuri Pierre, PharmD [address] [place] [address] 01/07/2025 9:30 AM EST Clinical Support [address] [address] Azeb Hall, MARTIN [address] [place] [address] 01/11/2025 1:00 PM EST Office Visit [address] [address] Sariah Vickers, KAYLEE [address] [place] [address] 02/03/2025 11:00 AM EST Medication Management [address] [address] Yuri Pierre, PharmD [address] [place] [address] documented as of this encounter Goals Goal [...] documented as of this encounter Care Teams Cosmetic Account Coordinator Relationship Specialty Start Date End Date Sariah Vickers ANP [address] [place] [address] PCP - General Family Medicine 09/23/19 Yuri Pierre PharmD [address] [place] [address] Pharmacist Internal Medicine 05/05/24 Basilio Hlal MD [address] [place] [address] Cardiology 05/17/24 Ron Preciado MD [address] [place] [address] Pulmonary Disease 05/17/24 documented as of this encounter
--- OUTSIDE RECORDS SUMMARY | 2024-11-12 14:11 | XMS_ITS | Encounter Summary ---
Author Organization [employer] Address 75 [facility] 7t [place] [address] Care Team Providers Care Relief Manager Name Role Phone Sariah Vickers Primary Care Provider [phone] Yuri Pierre PharmD Unavailable [phone] Basilio Hall MD Unavailable [phone] Ron Preciado MD Unavailable [phone] Reason for Visit * Reason Comments Med Refill Encounter Details Date Type Department Care Team (Late st Contact Info) Description 07/10/2023 Refill [facility] [address] [place] [address] Sariah Vickers ANP [address] [place], [place] [phone] Chronic SI joint pain Social History Tobacco [...] 11/17/2024 9:30 AM EDT Medication Management [address] [address] Yuri Pierre, PharmD [address] [place] [address] 01/07/2025 9:30 AM EST Clinical Support [address] [address] Azeb Hall, RN [address] [place] [address] 01/11/2025 1:00 PM EST Office Visit [address] [address] Sariah Vickers, ANP [address] [place] [address] 02/03/2025 11:00 AM EST Medication Management [address] [address] Yuri Pierre, PharmD [address] [place] [address] documented as of this encounter Goals Goal [...] documented as of this encounter Care Teams Relief Manager Relationship Specialty Start Date End Date Sariah Vickers ANP 230 [place] [address] PCP - General Family Medicine 09/23/19 Yuri Pierre, MikeD [address] [place] [address] Pharmacist Internal Medicine 05/05/24 Basilio Hall MD [address] [place] [address] Cardiology 05/17/24 Ron Preciado MD [address] [place] [address] Pulmonary Disease 05/17/24 documented as of this encounter
--- OUTSIDE RECORDS SUMMARY | 2024-11-12 14:11 | XMS_ITS | Encounter Summary ---
Author Organization [employer] Address 75 [facility] 7t [place] [address] Care Team Providers Care Cigarette And Filter Chief Inspector Name Role Phone Sariah Vickers Primary Care Provider [phone] Yuri Pierre PharmD Unavailable [phone] Basilio Hall MD Unavailable [phone] Ron Preciado MD Unavailable [phone] Reason for Visit * Reason Comments Med Refill Encounter Details Date Type Department Care Team (Late st Contact Info) Description 05/23/2024 Refill [facility] [address] [place] [address] Sariah Vickers ANP [address] [place] [address] Cervicalgia Social History Tobacco Use Types Packs/Day [...] Description 11/17/2024 9:30 AM EDT Medication Management [address] [address] Yuri Pierre, PharmD [address] [place] [address] 01/07/2025 9:30 AM EST Clinical Support [address] [address] Azeb Hall, MARTIN [address] [place] [address] 01/11/2025 1:00 PM EST Office Visit [address] [address] Sariah Vickers, KAYLEE [address] [place] [address] 02/03/2025 11:00 AM EST Medication Management [address] [address] Yuri Pierre, PharmD [address] [place] [address] documented as of this encounter Goals Goal [...] documented as of this encounter Care Teams Cigarette And Filter Chief Inspector Relationship Specialty Start Date End Date Sariah Vickers ANP [address] [place] [address] PCP - General Family Medicine 09/23/19 Yuri Pierre PharmD [address] [place] [address] Pharmacist Internal Medicine 05/05/24 Basilio Hall MD [address] [place] [address] Cardiology 05/17/24 Ron Preciado MD [address] [place] [address] Pulmonary Disease 05/17/24 documented as of this encounter
--- OUTSIDE RECORDS SUMMARY | 2024-11-12 14:11 | XMS_ITS | Encounter Summary ---
Author Organization [employer] Address 75 [facility] 7t [place] [address] Care Team Providers Care Elastic Attacher Chainstitch Name Role Phone Sariah Vickers Primary Care Provider Yuri Pierre PharmD Unavailable [phone] Basilio Hall MD Unavailable [phone] Ron Preciado MD Unavailable [phone] Reason for Visit * Reason Comments Med Refill Encounter Details Date Type Department Care Team (Late st Contact Info) Description 08/14/[address] [facility] [address] [place] [address] Sariah Vickers ANP 230 [place] [address] Severe persistent asthma without complication Social History [...] or Tsrong 12/17/2021 10 :16 AM EDT COVID-19 Exposure [...] 11/17/2024 9:30 AM EDT Medication Management [address] [address] Yuri Pierre, PharmBear [address] [place] [address] 01/07/2025 9:30 AM EST Clinical Support [address] [address] Azeb Hall RN [address] [place] [address] 01/11/2025 1:00 PM EST Office Visit [address] [address] Sariah Vickers ANP [address] [place] [address] 02/03/2025 11:00 AM EST Medication Management [address] [address] Yuri Pierre PharmBear [address] [place] [address] documented as of this encounter Visit Diagnoses Diagnosis Severe persistent asthma without complication documented in this encounter Care Teams Elastic Attacher Chainstitch Relationship Specialty Start Date End Date Sariah Vickers ANP [address] [place] [address] PCP - General Family Medicine 09/23/19 Yuri Pierre, PharmD [address] [place] [address] Pharmacist Internal Medicine 05/05/24 Basilio Hall MD [address] [place] [address] Cardiology 05/17/24 Ron Preciado MD [address] [place] [address] Pulmonary Disease 05/17/24 documented as of this encounter
--- OUTSIDE RECORDS SUMMARY | 2024-11-12 14:11 | XMS_ITS | Encounter Summary ---
Author Organization [employer] Address 75 [facility] 7t [place] [address] Care Team Providers Care Heading And Priming Operator Name Role Phone Sariah Vickers Primary Care Provider Yuri Pierre PharmD Unavailable [phone] Basilio Hall MD Unavailable [phone] Ron Preciado MD Unavailable [phone] Reason for Visit * Reason Onset Date Comments Referral 05/17/2022 Encounter Details Date Type Department Care Team (Late st Contact Info) Description 05/17/2022 Telephone [facility] MEDICINE [address] [place] [address] Sariah Vickers ANP [address] [place], [place] [phone] Referral Social History Tobacco Use Types Packs/Day [...] guide to vertigo. Please contact pt at [phone] documented in this encounter Plan of Treatment Upcoming Encounters Date Type Department Care Team (Late st Contact Info) Description 11/17/2024 9:30 AM EDT Medication Management [address] [address] Yuri Pierre PharmD [address] [place] [address] 01/07/2025 9:30 AM EST Clinical Support [address] [address] Azeb Hall, RN [address] [place] [address] 01/11/2025 1:00 PM EST Office Visit [address] [address] Sariah Vickers ANP [address] [place] [address] 02/03/2025 11:00 AM EST Medication Management [address] [address] Yuri Pierre, MikeD [address] [place] [address] documented as of this encounter Visit Diagnoses Not on filedocumented in this encounter Care Teams Heading And Priming Operator Relationship Specialty Start Date End Date Sariah Vickers ANP [address] [place] [address] PCP - General Family Medicine 09/23/19 Yuri Pierre, MikeD [address] [place] [address] Pharmacist Internal Medicine 05/05/24 Basilio Hall MD [address] [place] [address] Cardiology 05/17/24 Ron Preciado MD [address] [place] [address] Pulmonary Disease 05/17/24 documented as of this encounter
--- OUTSIDE RECORDS SUMMARY | 2024-11-12 14:11 | XMS_ITS | Encounter Summary ---
Author Organization [employer] Address 75 [facility] 7t [place] [address] Care Team Providers Care Business Continuity Manager Name Role Phone Sariah Vickers Primary Care Provider [phone] Yuri Pierre PharmD Unavailable [phone] Basilio Hall MD Unavailable [phone] Ron Preciado MD Unavailable [phone] Encounter Details Date Type Department Care Team (Late st Contact Info) Description 10/26/2024 Results Follow-Up [facility] MEDICINE 230 [place] [address] Sariah Vickers ANP 230 [place] [address] Thyroid Peroxidase Antibodies, Cardiolipin Antibodies (IgA,IgG,IgM) Social [...] Description 11/17/2024 9:30 AM EDT Medication Management [address] [address] Yuri Pierre, PharmD [address] [place] [address] 01/07/2025 9:30 AM EST Clinical Support [address] [address] Azeb Hall RN 505 [place] [address] 01/11/2025 1:00 PM EST Office Visit [address] [phone] Sariah Vickers ANP 230 [place] [address] 02/03/2025 11:00 AM EST Medication Management [facility] MEDICINE [address] [place] [address] Yuri Pierre, PharmBear 230 [place] [address] documented as of this encounter Goals Goal [...] as of this encounter Care Teams Business Continuity Manager Relationship Specialty Start Date End Date Sariah Vickers ANP 230 [place] [address] PCP - General Family Medicine 09/23/19 Yuri Pierre, PharmD [address] [place] [address] Pharmacist Internal Medicine 05/05/24 Basilio Hall MD 596 [place] [address] Cardiology 05/17/24 Ron Preciado MD [address] [place] [address] Pulmonary Disease 05/17/24 documented as of this encounter
--- OUTSIDE RECORDS SUMMARY | 2024-11-12 14:11 | XMS_ITS | Encounter Summary ---
Author Organization [employer] Address 75 [facility] 7t [place] [address] Care Team Providers Care Race Board Attendant Name Role Phone Sariah Vickers Primary Care Provider [phone] Yuri Pierre PharmD Unavailable [phone] Basilio Hall MD Unavailable [phone] Ron Preciado MD Unavailable [phone] Reason for Visit * Reason Comments Med Refill Encounter Details Date Type Department Care Team (Late st Contact Info) Description 07/12/2022 Refill [facility] MEDICINE 230 [place] [address] Sariah Vickers ANP 230 [place] [address] Social History Tobacco Use Types Packs/Day Years [...] Description 11/17/2024 9:30 AM EDT Medication Management [address] [address] Yuri Pierre, PharmBear [address] [place] [address] 01/07/2025 9:30 AM EST Clinical Support [address] [address] Azeb Hall, MARTIN 505 [place] [address] 01/11/2025 1:00 PM EST Office Visit [address] [address] Sariah Vickers ANP [address] [place] [address] 02/03/2025 11:00 AM EST Medication Management [address] [address] Yuri Pierre PharmD [address] [place] [address] documented as of this encounter Visit Diagnoses Not on filedocumented in this encounter Care Teams Race Board Attendant Relationship Specialty Start Date End Date Sariah Vickers ANP [address] [place] [address] PCP - General Family Medicine 09/23/19 Yuri Pierre, PharmD [address] [place] [address] Pharmacist Internal Medicine 05/05/24 Basilio Hall MD 596 [place] [address] Cardiology 05/17/24 Ron Preciado MD [address] [place] [address] Pulmonary Disease 05/17/24 documented as of this encounter
--- OUTSIDE RECORDS SUMMARY | 2024-11-12 14:11 | XMS_ITS | Encounter Summary ---
Author Organization [employer] Address 75 [facility] 7t [place] [address] Care Team Providers Care Animal Husbandry Technician Name Role Phone Sariah Vickers Primary Care Provider [phone] Yuri Pierre PharmD Unavailable [phone] Basilio Hall MD Unavailable [phone] Ron Preciado MD Unavailable [phone] Reason for Visit * Reason Comments Med Refill Encounter Details Date Type Department Care Team (Late st Contact Info) Description 05/09/2023 Refill [facility] MEDICINE 230 [place] [address] Sariah Vickers ANP 230 [place] [address] High cholesterol Social History Tobacco Use Types [...] 11/17/2024 9:30 AM EDT Medication Management [address] [address] Yuri Pierre, PharmD [address] [place] [address] 01/07/2025 9:30 AM EST Clinical Support [address] [address] Azeb Hall, RN 505 [place] [address] 01/11/2025 1:00 PM EST Office Visit [address] [address] Sariah Vickers, KAYLEE [address] [place] [address] 02/03/2025 11:00 AM EST Medication Management [address] [address] Yuri Pierre, PharmD [address] [place] [address] documented as of this encounter Goals Goal [...] hypercholesterolemia documented in this encounter Care Teams Animal Husbandry Technician Relationship Specialty Start Date End Date Sariah Vickers ANP 230 [place] [address] PCP - General Family Medicine 09/23/19 Yuri Pierre, MikeD [address] [place] [address] Pharmacist Internal Medicine 05/05/24 Basilio Hall MD [address] [place] [address] Cardiology 05/17/24 Ron Preciado MD [address] [place] [address] Pulmonary Disease 05/17/24 documented as of this encounter
--- OUTSIDE RECORDS SUMMARY | 2024-11-12 14:11 | XMS_ITS | Encounter Summary ---
Author Organization [employer] Address 75 [facility] 7t [place] [address] Care Team Providers Care Software Business Analyst Name Role Phone Sariah Vickers Primary Care Provider [phone] Yuri Pierre PharmD Unavailable [phone] Basilio Hall MD Unavailable [phone] Ron Preciado MD Unavailable [phone] Reason for Visit * Reason Onset Date Comments Med Refill Durable Medical Equipment 07/15/2023 Foam M attress/Raised Toilet Seat Encounter Details Date Type Department Care Team (Late st Contact Info) Description 07/15/2023 Refill [facility] MEDICINE 230 [place], [place] [phone] Sariah Vickers ANP 230 [place] [address] Neck pain Social History Tobacco Use Types [...] Please see request sent via email by [facility] Strategic Planning Consultant Arlin Baker. Please Advise. Good morning, Our [...] ([facility] st Contact Info) Description 11/17/2024 9:30 AM EDT Medication Management [facility] MED[facility]INE 230 [place] [address] Yuri Pierre, PharmD [address] [place] [address] 01/07/2025 9:30 AM EST Clinical Support [address] [phone] Azeb Hall RN 505 [place] [address] 01/11/2025 1:00 PM EST Office Visit [address] [address] Sariah Vickers ANP [address] [place] [address] 02/03/2025 11:00 AM EST Medication Management [address] [phone] Yuri Pierre PharmD [address] [place] [address] documented as of this encounter Goals Goal [...] as of this encounter Care Teams Software Business Analyst Relationship Specialty Start Date End Date Sariah Vickers ANP [address] [place] [address] PCP - General Family Medicine 09/23/19 Yuri Pierre PharmD [address] [place] [address] Pharmacist Internal Medicine 05/05/24 Basilio Hall MD 596 [place] [address] Cardiology 05/17/24 Ron Preciado MD [address] [place] [address] Pulmonary Disease 05/17/24 documented as of this encounter
--- OUTSIDE RECORDS SUMMARY | 2024-11-12 14:11 | XMS_ITS | Encounter Summary ---
Author Organization [employer] Address 75 [facility] 7t [place] [address] Care Team Providers Care Mens Locker Room Attendant Name Role Phone Sariah Vickers Primary Care Provider [phone] Yuri Pierre PharmD Unavailable [phone] Basilio Hall MD Unavailable [phone] Ron Preciado MD Unavailable [phone] Reason for Visit * Reason Comments Med Refill Encounter Details Date Type Department Care Team (Late st Contact Info) Description 07/10/[address] [facility] MEDICINE 230 [place] [address] Sariah Vickers ANP 230 [place] [address] Vertigo Social History Tobacco Use Types Packs/Day [...] Description 11/17/2024 9:30 AM EDT Medication Management [address] [address] Yuri Pirere, PharmBear [address] [place] [address] 01/07/2025 9:30 AM EST Clinical Support [address] [address] Azeb Hall RN 505 [place] [address] 01/11/2025 1:00 PM EST Office Visit [address] [address] Sariah Vickers ANP [address] [place] [address] 02/03/2025 11:00 AM EST Medication Management [address] [address] Yuri Pierre PharmD [address] [place] [address] documented as of this encounter Visit Diagnoses Diagnosis Vertigo Dizziness and giddiness documented in this encounter Care Teams Mens Locker Room Attendant Relationship Specialty Start Date End Date Sariah Vickers ANP [address] [place] [address] PCP - General Family Medicine 09/23/19 Yuri Pierre, PharmD [address] [place] [address] Pharmacist Internal Medicine 05/05/24 Basilio Hall MD 596 [place] [address] Cardiology 05/17/24 Ron Preciado MD [address] [place] [address] Pulmonary Disease 05/17/24 documented as of this encounter
--- OUTSIDE RECORDS SUMMARY | 2024-11-12 14:11 | XMS_ITS | Encounter Summary ---
Author Organization [employer] Address 75 [facility] 7t [place] [address] Care Team Providers Care Typewriters Functional Tester Name Role Phone Sariah Vickers Primary Care Provider [phone] Yuri Pierre PharmD Unavailable [phone] Basilio Hall MD Unavailable [phone] Ron Preciado MD Unavailable [phone] Reason for Visit * Reason Comments Med Refill Encounter Details Date Type Department Care Team (Late st Contact Info) Description 05/21/2023 Refill [facility] MEDICINE 230 [place] [address] Sariah Vickers ANP 230 [place] [address] Neck pain Social History Tobacco Use Types [...] 11/17/2024 9:30 AM EDT Medication Management [address] [address] Yuri Pierre, PharmD [address] [place] [address] 01/07/2025 9:30 AM EST Clinical Support [address] [address] Azeb Hall, MARTIN 505 [place] [address] 01/11/2025 1:00 PM EST Office Visit [address] [address] Sariah Vickers, KAYLEE [address] [place] [address] 02/03/2025 11:00 AM EST Medication Management [address] [place] [address] Yuri Pierre, PharmD 230 [place] [address] documented as of this encounter Goals Goal [...] Cervicalgia documented in this encounter Care Teams Typewriters Functional Tester Relationship Specialty Start Date End Date Sariah Vickers ANP 230 [place] [address] PCP - General Family Medicine 09/23/19 Yuri Pierre, PharmD 230 [place] [address] Pharmacist Internal Medicine 05/05/24 Basilio Hall MD 596 [place] [address] Cardiology 05/17/24 Ron Preciado MD [address] [place] [address] Pulmonary Disease 05/17/24 documented as of this encounter
--- OUTSIDE RECORDS SUMMARY | 2024-11-12 14:11 | XMS_ITS | Encounter Summary ---
Author Organization [employer] Address 75 [facility] 7t [place] [address] Care Team Providers Care Cotton Weigher Name Role Phone Sariah Vickers Primary Care Provider [phone] Yuri Pierre PharmD Unavailable [phone] Basilio Hall MD Unavailable [phone] Ron Preciado MD Unavailable [phone] Reason for Visit * Reason Comments Med Refill Encounter Details Date Type Department Care Team (Late st Contact Info) Description 07/17/[address] [facility] MEDICINE 230 [place] [address] Sariah Vickers ANP 230 [place] [address] Neck pain Social History Tobacco Use Types [...] Description 11/17/2024 9:30 AM EDT Medication Management [address] [address] Yuri Pierre, PharmD [address] [place] [address] 01/07/2025 9:30 AM EST Clinical Support [address] [address] Azeb Hall RN 505 [place] [address] 01/11/2025 1:00 PM EST Office Visit [address] [address] Sariah Vickers ANP [address] [place] [address] 02/03/2025 11:00 AM EST Medication Management [address] [address] Yuri Pierre, PharmBear [address] [place] [address] documented as of this encounter Visit Diagnoses Diagnosis Neck pain Cervicalgia documented in this encounter Care Teams Cotton Weigher Relationship Specialty Start Date End Date Sariah Vickers ANP [address] [place] [address] PCP - General Family Medicine 09/23/19 Yuri Pierre, PharmD [address] [place] [address] Pharmacist Internal Medicine 05/05/24 Basilio Hall MD 596 [place] [address] Cardiology 05/17/24 Ron Preciado MD [address] [place] [address] Pulmonary Disease 05/17/24 documented as of this encounter
== END 2024-11-12 13:28 | disposition home or self-care (01) ==
LOC: HO.HGI 12:44
PROVIDERS: PCP Nurse Practitioner Primary Care; Visit Provider Nurse Practitioner
DX: K59.04 Chronic idiopathic constipation (principal); E03.9 Hypothyroidism, unspecified; K59.9 Functional intestinal disorder, unspecified; K21.9 Gastro-esophageal reflux disease without esophagitis; E11.9 Type 2 diabetes mellitus without complications
CPT/HCPCS: 99213

== ENCOUNTER → 2024-11-12 12:43 | Outpatient (BNVA) | payer OTHER, SELFPAY | PROVIDERS: PCP Nurse Practitioner Primary Care; Visit Provider Nurse Practitioner | DX: K59.04 Chronic idiopathic constipation (principal); K59.9 Functional intestinal disorder, unspecified; K21.9 Gastro-esophageal reflux disease without esophagitis; E03.9 Hypothyroidism, unspecified; E11.9 Type 2 diabetes mellitus without complications | CPT/HCPCS: 99212 ==

== ENCOUNTER 2024-11-22 09:42 | Outpatient (AMB) | payer OTHER, SELFPAY ==
--- OUTSIDE RECORDS SUMMARY | 2024-11-22 11:06 | XMS_ITS | Encounter Summary ---
Author Organization [employer] Address 75 [facility] 7t [place] [address] Care Team Providers Care Shop Assistant Name Role Phone Sariah Vickers Primary Care Provider [phone] Yuri Pierre PharmD Unavailable [phone] Basilio Hall MD Unavailable [phone] Ron Preciado MD Unavailable [phone] Reason for Visit * Reason Comments Med Refill Encounter Details Date Type Department Care Team (Late st Contact Info) Description 02/06/2022 Refill [facility] MEDICINE 230 [place] [address] Sariah Vickers ANP 230 [place] [address] Social History Tobacco Use Types Packs/Day Years [...] Care Team (Late st Contact Info) Description 01/07/2025 9:30 AM EST Clinical Support [address] [address] Azeb Hall, RN 505 [place] [address] 01/11/2025 1:00 PM EST Office Visit [address] [address] Sariah Vickers ANP [address] [place] [address] 02/03/2025 11:00 AM EST Medication Management [address] [address] Yuri Pierre, PharmD [address] [place] [address] documented as of this encounter Visit Diagnoses Not on filedocumented in this encounter Care Teams Shop Assistant Relationship Specialty Start Date End Date Sariah Vickers ANP [address] [place] [address] PCP - General Family Medicine 09/23/19 Yuri Pierre, PharmD [address] [place] [address] Pharmacist Internal Medicine 05/05/24 Basilio Hall MD 596 [place] [address] Cardiology 05/17/24 Ron Preciado MD [address] [place] [address] Pulmonary Disease 05/17/24 documented as of this encounter
--- OUTSIDE RECORDS SUMMARY | 2024-11-22 11:06 | XMS_ITS | Encounter Summary ---
Author Organization [employer] Address 75 [facility] 7t [place] [address] Care Team Providers Care Boarding Kennel Or Cattery Operator Name Role Phone Sariah Vickers Primary Care Provider [phone] Yuri Pierre PharmD Unavailable [phone] Basilio Hall MD Unavailable [phone] Ron Preciado MD Unavailable [phone] Encounter Details Date Type Department Care Team (Latest Contact Info) Description 05/15/2018 Abstract [facility] CONVERSIONS Dental, Provider, DDS Social [...] Description 01/07/2025 9:30 AM EST Clinical Support [address] [address] Azeb Hall RN 505 [place] [address] 01/11/2025 1:00 PM EST Office Visit [address] [address] Sariah Vickers ANP [address] [place] [address] 02/03/2025 11:00 AM EST Medication Management [address] [place] [address] Yuri Pierre, PharmD 230 [place] [address] documented as of this encounter Visit Diagnoses Not on filedocumented in this encounter Care Teams Boarding Kennel Or Cattery Operator Relationship Specialty Start Date End Date Sariah Vickers ANP 230 [place] [address] PCP - General Family Medicine 09/23/19 Yuri Pierre, PharmD 230 [place], [place] [phone] Pharmacist Internal Medicine 05/05/24 Basilio Hall MD 596 [place] [address] Cardiology 05/17/24 Ron rPeciado MD [address] [place] [address] Pulmonary Disease 05/17/24 documented as of this encounter
--- OUTSIDE RECORDS SUMMARY | 2024-11-22 11:06 | XMS_ITS | Encounter Summary ---
Author Organization [employer] Address 75 [facility] 7t [place] [address] Care Team Providers Care Slicing 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/Tender Name Role Phone Sariah Vickers Primary Care Provider Yuri Pierre PharmD Unavailable [phone] Basilio Hall MD Unavailable [phone] Ron Preciado MD Unavailable [phone] Encounter Details Date Type Department Care Team (Late st Contact Info) Description 01/09/2022 Abstract [facility] ADULT DENTAL [address] [place] [address] Dental, Provider, DDS Social History Tobacco Use [...] Department Care Team (Late Contact Info) Description 01/07/2025 9:30 AM EST Clinical Support [address] [address] Azeb Hall RN 505 [place] [address] 01/11/2025 1:00 PM EST Office Visit [facility] MEDICINE [address] [place] [address] Sariah Vickers ANP 230 [place] [address] 02/03/2025 11:00 AM EST Medication Management [facility] MEDICINE 230 [place] [address] Yuri Pierre, PharmD 230 [place] [address] documented as of this encounter Procedures Procedure [...] on filedocumented in this encounter Care Teams Slicing 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/Tender Relationship Specialty Start Date End Date Sariah Vickers ANP 230 [place] [address] PCP - General Family Medicine 09/23/19 Yuri Pierre, MikeD 230 [place] [address] Pharmacist Internal Medicine 05/05/24 Basilio Hall MD 596 [place] [address] Cardiology 05/17/24 Ron Preciado MD [address] [place] [address] Pulmonary Disease 05/17/24 documented as of this encounter
--- OUTSIDE RECORDS SUMMARY | 2024-11-22 11:06 | XMS_ITS | Encounter Summary ---
Author Organization [employer] Address 75 [facility] 7t [place] [address] Care Team Providers Care Electric Meter Repairer Helper Name Role Phone Sariah Vickers Primary Care Provider [phone] Yuri Pierre PharmD Unavailable [phone] Basilio Hall MD Unavailable [phone] Ron Preciado MD Unavailable [phone] Reason for Visit * Reason Comments Med Refill Encounter Details Date Type Department Care Team (Late st Contact Info) Description 09/13/2022 Refill [facility] [address] [place] [address] Sariah Vickers ANP 230 [place] [address] Severe persistent allergic asthma without complication Social [...] Description 01/07/2025 9:30 AM EST Clinical Support [address] [address] Azeb Hall, RN 505 [place] [address] 01/11/2025 1:00 PM EST Office Visit [address] [address] Sariah Vickers ANP [address] [place] [address] 02/03/2025 11:00 AM EST Medication Management [address] [address] Yuri Pierre, PharmD [address] [place] [address] documented as of this encounter Visit Diagnoses Diagnosis Severe persistent allergic asthma without complication (HCC) documented in this encounter Care Teams Electric Meter Repairer Helper Relationship Specialty Start Date End Date Sariah Vickers ANP [address] [place] [address] PCP - General Family Medicine 09/23/19 Yuri Pierre, PharmD [address] [place] [address] Pharmacist Internal Medicine 05/05/24 Basilio Hall MD [address] [place] [address] Cardiology 05/17/24 Ron Preciado MD [address] [place] [address] Pulmonary Disease 05/17/24 documented as of this encounter
--- OUTSIDE RECORDS SUMMARY | 2024-11-22 11:06 | XMS_ITS | Encounter Summary ---
Author Organization [employer] Address 75 [facility] 7t [place] [address] Care Team Providers Care Preparation Supervisor Canning Name Role Phone Sariah Vickers Primary Care Provider [phone] Yuri Pierre PharmD Unavailable [phone] Basilio Hall MD Unavailable [phone] Ron Preciado MD Unavailable [phone] Encounter Details Date Type Department Care Team (Latest Contact Info) Description 04/14/2020 Abstract [facility] CONVERSIONS Dental, Provider, DDS Social History Tobacco [...] Description 01/07/2025 9:30 AM EST Clinical Support [address] [address] Azeb Hall RN 505 [place] [address] 01/11/2025 1:00 PM EST Office Visit [address] [address] Sariah Vickers ANP [address] [place] [address] 02/03/2025 11:00 AM EST Medication Management [address] [place] [address] Yuri Pierre, PharmD 230 [place] [address] documented as of this encounter Visit Diagnoses Not on filedocumented in this encounter Care Teams Preparation Supervisor Canning Relationship Specialty Start Date End Date Sariah Vickers ANP 230 [place], [place] [phone] PCP - General Family Medicine 09/23/19 Yuri Pierre, PharmD 230 [place], [place] [phone] Pharmacist Internal Medicine 05/05/24 Basilio Hall MD 596 [place] [address] Cardiology 05/17/24 Ron Preciado MD [address] [place] [address] Pulmonary Disease 05/17/24 documented as of this encounter
--- OUTSIDE RECORDS SUMMARY | 2024-11-22 11:06 | XMS_ITS | Encounter Summary ---
Author Organization [employer] Address 75 [facility] 7t [place] [address] Care Team Providers Care Sales Agent Business Services Name Role Phone Sariah Vickers Primary Care Provider [phone] Yuri Pierre PharmD Unavailable [phone] Basilio Hall MD Unavailable [phone] Ron Preciado MD Unavailable [phone] Encounter Details Date Type Department Care Team (Latest Contact Info) Description 06/20/2021 Abstract [facility] CONVERSIONS Dental, Provider, DDS Social [...] Description 01/07/2025 9:30 AM EST Clinical Support [address] [address] Azeb Hall RN 505 [place] [address] 01/11/2025 1:00 PM EST Office Visit [address] [address] Sariah Vickers ANP [address] [place] [address] 02/03/2025 11:00 AM EST Medication Management [address] [place] [address] Yuri Pierre, PharmD 230 [place] [address] documented as of this encounter Visit Diagnoses Not on filedocumented in this encounter Care Teams Sales Agent Business Services Relationship Specialty Start Date End Date Sariah Vickers ANP 230 [place], [place] [phone] PCP - General Family Medicine 09/23/19 Yuri Pierre, PharmD 230 [place], [place] [phone] Pharmacist Internal Medicine 05/05/24 Basliio Hall MD 596 [place] [address] Cardiology 05/17/24 Ron Preciado MD [address] [place] [address] Pulmonary Disease 05/17/24 documented as of this encounter
--- OUTSIDE RECORDS SUMMARY | 2024-11-22 11:06 | XMS_ITS | Encounter Summary ---
Author Organization [employer] Address 75 [facility] 7t [place] [address] Care Team Providers Care Business Applications Analyst Name Role Phone Sariah Vickers Primary Care Provider [phone] Yuri Pierre PharmD Unavailable [phone] Basilio Hall MD Unavailable [phone] Ron Preciado MD Unavailable [phone] Reason for Visit * Reason Comments Med Refill Encounter Details Date Type Department Care Team (Late st Contact Info) Description 08/22/2023 Refill [facility] 230 [place] [address] Sariah Vickers ANP 230 [place] [address] Neck pain Social History Tobacco Use Types [...] Description 01/07/2025 9:30 AM EST Clinical Support [address] [address] Azeb Hall, MARTIN 505 [place] [address] 01/11/2025 1:00 PM EST Office Visit [address] [address] Sariah Vickers ANP [address] [place] [address] 02/03/2025 11:00 AM EST Medication Management [address] [address] Yuri Pierre, MikeD [address] [place] [address] documented as of this encounter Goals Goal [...] as of this encounter Care Teams Business Applications Analyst Relationship Specialty Start Date End Date Sariah Vickers ANP 230 [place] [address] PCP - General Family Medicine 09/23/19 Yuri Pierre, MikeD [address] [place] [address] Pharmacist Internal Medicine 05/05/24 Basilio Hall MD 596 [place] [address] Cardiology 05/17/24 Ron Preciado MD [address] [place] [address] Pulmonary Disease 05/17/24 documented as of this encounter
--- OUTSIDE RECORDS SUMMARY | 2024-11-22 11:07 | XMS_ITS | Encounter Summary ---
Author Organization [employer] Address 75 [facility] 7t [place] [address] Care Team Providers Care Taste Tester Name Role Phone Sariah Vickers Primary Care Provider [phone] Yuri Pierre PharmD Unavailable [phone] Basilio Hall MD Unavailable [phone] Ron Preciado MD Unavailable [phone] Reason for Visit * Reason Comments Med Refill Encounter Details Date Type Department Care Team (Late st Contact Info) Description 01/06/2024 Refill [facility] [address] [place] [address] Sariah Vickers ANP 230 [place] [address] Cervicalgia Social History Tobacco Use Types Packs/Day [...] Description 01/07/2025 9:30 AM EST Clinical Support [address] [address] Azeb Hall RN 505 [place] [address] 01/11/2025 1:00 PM EST Office Visit [address] [address] Sariah Vickers ANP [address] [place] [address] 02/03/2025 11:00 AM EST Medication Management [address] [address] Yuri Pierre, MikeD [address] [place] [address] documented as of this encounter Goals Goal [...] documented as of this encounter Care Teams Taste Tester Relationship Specialty Start Date End Date Sariah Vickers ANP 230 [place] [address] PCP - General Family Medicine 09/23/19 Yuri Pierre, MikeD [address] [place] [address] Pharmacist Internal Medicine 05/05/24 Basilio Hall MD [address] [place] [address] Cardiology 05/17/24 Ron Preciado MD [address] [place] [address] Pulmonary Disease 05/17/24 documented as of this encounter
--- OUTSIDE RECORDS SUMMARY | 2024-11-22 11:07 | XMS_ITS | Encounter Summary ---
Author Organization [employer] Address 75 [facility] 7t [place] [address] Care Team Providers Care Estate Planning Attorney Name Role Phone Sariah Vickers Primary Care Provider [phone] Yuri Pierre PharmD Unavailable [phone] Basilio Hall MD Unavailable [phone] Ron Preciado MD Unavailable [phone] Reason for Visit * Reason Comments Med Refill Pt wants to know if she can keep taking prednis Encounter Details Date Type Department Care Team (Late st Contact Info) Description 06/26/2024 Refill [facility] [address] [place] [address] Sariah Vickers ANP 230 [place] [address] Cervicalgia Social History Tobacco Use Types Packs/Day [...] Description 01/07/2025 9:30 AM EST Clinical Support [address] [address] Azeb Hall, MARTIN 505 [place] [address] 01/11/2025 1:00 PM EST Office Visit [facility] MED[facility]INE [address] [place] [address] Sariah Vickers ANP [address] [place] [address] 02/03/2025 11:00 AM EST Medication Management [facility] [address] [place] [address] Yuri Pierre, MikeD [address] [place] [address] documented as of this encounter Goals Goal [...] documented as of this encounter Care Teams Estate Planning Attorney Relationship Specialty Start Date End Date Sariah Vickers ANP 230 [place] [address] PCP - General Family Medicine 09/23/19 Yuri Pierre, MikeD 230 [place] [address] Pharmacist Internal Medicine 05/05/24 Basilio Hall MD [address] [place] [address] Cardiology 05/17/24 Ron Preciado MD [address] [place] [address] Pulmonary Disease 05/17/24 documented as of this encounter
--- OUTSIDE RECORDS SUMMARY | 2024-11-22 11:07 | XMS_ITS | Encounter Summary ---
Author Organization [employer] Address 75 [facility] 7t [place] [address] Care Team Providers Care Rescue Boat Operator Name Role Phone Sariah Vickers Primary Care Provider [phone] Yuri Pierre PharmD Unavailable [phone] Basilio Hall MD Unavailable [phone] Ron Preciado MD Unavailable [phone] Reason for Visit * Reason Onset Date Comments Med Refill 09/18/2023 Encounter Details Date Type Department Care Team (Late st Contact Info) Description 09/18/2023 Telephone [facility] MEDICINE 230 [place], [place] [phone] Sariah Vickers ANP 230 [place], [place] [phone] Med Refill Social History Tobacco Use Types [...] refill : Tramadol To be sent to: [facility] - [place], [place] - [address] [place] [address] documented in this encounter Plan of Treatment Upcoming Encounters Date Type Department Care Team ([facility] st Contact Info) Description 01/07/2025 9:30 AM EST Clinical Support [address] [address] Azeb Hall RN 505 [place] [address] 01/11/2025 1:00 PM EST Office Visit [address] [address] Sariah Vickers ANP [address] [place] [address] 02/03/2025 11:00 AM EST Medication Management [address] [address] Yuri Pierre, PharmD 230 [place] [address] documented as of this encounter Goals Goal Patient Goal Type Associated Problems Recent Progress Patient-Stated? Author Blood Pressure < 140/90 Blood Pressure 132/88(2024 8:49 AM EDT) No Phanis-Dileepl Aida urbina PharmD Record Your Blood Sugar As Directed General No Piers-Gambl eVeronicasa, PharmD Hemoglobin A1c < 7 Result Component 6.6( 1:54 PM EDT) No Piers-Gambl Aida urbina PharmD documented as of this encounter Visit Diagnoses Not on filedocumented in this encounter Additional Health Concerns Assessment Noted Time PHQ-9 Depression Total Score: 2 06/23/19 24 2:10 PM EDT documented as of this encounter Care Teams Rescue Boat Operator Relationship Specialty Start Date End Date Sariah Vickers ANP 230 [place] [address] PCP - General Family Medicine 09/23/19 Yuri Pierre, PharmD 230 [place] [address] Pharmacist Internal Medicine 05/05/24 Basilio Hall MD 596 [place] [address] Cardiology 05/17/24 Ron Preciado MD [address] [place] [address] Pulmonary Disease 05/17/24 documented as of this encounter
--- OUTSIDE RECORDS SUMMARY | 2024-11-22 11:07 | XMS_ITS | Encounter Summary ---
Author Organization [employer] Address 75 [facility] 7t [place] [address] Care Team Providers Care Ingot Buggy Operator Name Role Phone Sariah Vickers Primary Care Provider [phone] Yuri Pierre PharmD Unavailable [phone] Basilio Hlal MD Unavailable [phone] Ron Preciado MD Unavailable [phone] Reason for Visit * Reason Comments Med Refill Encounter Details Date Type Department Care Team (Late st Contact Info) Description 10/03/2023 Refill [facility] 230 [place] [address] Sariah Vickers ANP 230 [place], [place] [phone] Chronic SI joint pain Social History Tobacco [...] Description 01/07/2025 9:30 AM EST Clinical Support [address] [address] Azeb Hall, MARTIN 505 [place] [address] 01/11/2025 1:00 PM EST Office Visit [address] [address] Sariah Vickers ANP [address] [place] [address] 02/03/2025 11:00 AM EST Medication Management [address] [address] Yuri Pierre, MikeD [address] [place] [address] documented as of this encounter Goals Goal [...] documented as of this encounter Care Teams Ingot Buggy Operator Relationship Specialty Start Date End Date Sariah Vickers ANP 230 [place] [address] PCP - General Family Medicine 09/23/19 Yuri Pierre, MikeD [address] [place] [address] Pharmacist Internal Medicine 05/05/24 Basilio Hall MD [address] [place] [address] Cardiology 05/17/24 Ron Preciado MD [address] [place] [address] Pulmonary Disease 05/17/24 documented as of this encounter
--- OUTSIDE RECORDS SUMMARY | 2024-11-22 11:07 | XMS_ITS | Encounter Summary ---
Author Organization [employer] Address 75 [facility] 7t [place] [address] Care Team Providers Care Meteorology Professor Name Role Phone Sariah Vickers Primary Care Provider [phone] Yuri Pierre PharmD Unavailable [phone] Basilio Hall MD Unavailable [phone] Ron Preciado MD Unavailable [phone] Reason for Visit * Reason Comments Med Refill Encounter Details Date Type Department Care Team (Late st Contact Info) Description 11/24/2023 Refill [facility] MED[facility]INE 230 [place] [address] Sariah Vickers ANP 230 [place] [address] Vertigo Social History Tobacco Use Types Packs/Day [...] Description 01/07/2025 9:30 AM EST Clinical Support [address] [address] Azeb Hall, MARTIN 505 [place] [address] 01/11/2025 1:00 PM EST Office Visit [address] [address] Sariah Vickers ANP [address] [place] [address] 02/03/2025 11:00 AM EST Medication Management [address] [address] Yuri Pierre, MikeD [address] [place] [address] documented as of this encounter Goals Goal [...] documented as of this encounter Care Teams Meteorology Professor Relationship Specialty Start Date End Date Sariah Vickers ANP 230 [place] [address] PCP - General Family Medicine 09/23/19 Yuri Pierre, MikeD [address] [place] [address] Pharmacist Internal Medicine 05/05/24 Basilio Hall MD 596 [place] [address] Cardiology 05/17/24 Ron Preciado MD [address] [place] [address] Pulmonary Disease 05/17/24 documented as of this encounter
--- OUTSIDE RECORDS SUMMARY | 2024-11-22 11:07 | XMS_ITS | Encounter Summary ---
Author Organization [employer] Address [address] [place] [address] 7t [place] [address] Care Team Providers Care Associate Partner Name Role Phone Sariah Vickers Primary Care Provider Yuri Pierre PharmD Unavailable [phone] Basilio Hall MD Unavailable [phone] Ron Preciado MD Unavailable [phone] Reason for Visit * Reason Onset Date Comments Nurse Triage 11/01/2022 Encounter Details Date Type Department Care Team (Late st Contact Info) Description 11/01/2022 Telephone [facility] 230 [place] [address] Sariah Vickers ANP 230 [place] [address] Nurse Triage Social History Tobacco Use Types [...] 11/01/2022 3:51 PM EDT Triage call with [employer] [place] [employer] [place] [id number] Pt reports blood sugars have been high [...] Description 01/07/2025 9:30 AM EST Clinical Support [facility] [address] [place] [address] Azeb Hall RN 505 [place] [address] 01/11/2025 1:00 PM EST Office Visit [address] [address] Sariah Vickers ANP [address] [place] [address] 02/03/2025 11:00 AM EST Medication Management [facility] 230 [place] [address] Yuri Pierre, PharmD 230 [place] [address] documented as of this encounter Goals Goal [...] filedocumented in this encounter Care Teams Associate Partner Relationship Specialty Start Date End Date Sariah Vickers ANP 230 [place] [address] PCP - General Family Medicine 09/23/19 Yuri Pierre, PharmD 230 [place] [address] Pharmacist Internal Medicine 05/05/24 Basilio Hall MD 596 [place] [address] Cardiology 05/17/24 Ron Preciado MD [address] [place] [address] Pulmonary Disease 05/17/24 documented as of this encounter
--- OUTSIDE RECORDS SUMMARY | 2024-11-22 11:07 | XMS_ITS | Encounter Summary ---
Author Organization [employer] Address 75 [facility] 7t [place] [address] Care Team Providers Care Tool Design Drafter Name Role Phone Sariah Vickers Primary Care Provider Yuri Pierre PharmD Unavailable [phone] Basilio Hall MD Unavailable [phone] Ron Preciado MD Unavailable [phone] Reason for Visit * Reason Comments Med Refill Encounter Details Date Type Department Care Team (Late st Contact Info) Description 03/03/2022 Refill [facility] MEDICINE 230 [place] [address] Sariah Vickers ANP 230 [place] [address] Social History Tobacco Use Types Packs/Day Years [...] 01/07/2025 9:30 AM EST Clinical Support [facility] MEDICINE [address] [place] [address] Azeb Hall RN 505 [place] [address] 01/11/2025 1:00 PM EST Office Visit [address] [address] Sariah Vickers ANP [address] [place] [address] 02/03/2025 11:00 AM EST Medication Management [address] [address] Yuri Pierre, PharmBear [address] [place] [address] documented as of this encounter Visit Diagnoses Not on filedocumented in this encounter Care Teams Tool Design Drafter Relationship Specialty Start Date End Date Sariah Vickers ANP [address] [place] [address] PCP - General Family Medicine 09/23/19 Yuri Pierre, PharmD [address] [place] [address] Pharmacist Internal Medicine 05/05/24 Basilio Hall MD 596 [place] [address] Cardiology 05/17/24 Rno Preciado MD [address] [place] [address] Pulmonary Disease 05/17/24 documented as of this encounter
--- OUTSIDE RECORDS SUMMARY | 2024-11-22 11:07 | XMS_ITS | Encounter Summary ---
Author Organization [employer] Address 75 [facility] 7t [place] [address] Care Team Providers Care Aircraft Navigator Name Role Phone Sariah Vickers Primary Care Provider [phone] Yuri Pierre PharmD Unavailable [phone] Basilio Hall MD Unavailable [phone] Ron Preciado MD Unavailable [phone] Reason for Visit * Reason Onset Date Comments Med Refill 02/04/2024 Encounter Details Date Type Department Care Team (Late st Contact Info) Description 02/04/2024 Telephone [facility] 230 [place] [address] Sariah Vickers ANP 230 [place], [place] [phone] Med Refill Social History Tobacco Use Types [...] 50 MG tablet To be sent to: [facility] - [place], [place] - [address] [place] [address] documented in this encounter Plan of Treatment Upcoming Encounters Date Type Department Care Team ([facility] st Contact Info) Description 01/07/2025 9:30 AM EST Clinical Support [address] [address] Azeb Hall RN 505 [place] [address] 01/11/2025 1:00 PM EST Office Visit [address] [address] Sariah Vickers ANP [address] [place] [address] 02/03/2025 11:00 AM EST Medication Management [address] [address] Yuri Pierre, PharmD 230 [place] [address] documented as of this encounter Goals Goal [...] as of this encounter Care Teams Aircraft Navigator Relationship Specialty Start Date End Date Sariah Vickers ANP 230 [place] [address] PCP - General Family Medicine 09/23/19 Yuri Pierre, PharmD 230 [place] [address] Pharmacist Internal Medicine 05/05/24 Basilio Hall MD 596 [place] [address] Cardiology 05/17/24 Ron Preciado MD [address] [place] [address] Pulmonary Disease 05/17/24 documented as of this encounter
--- OUTSIDE RECORDS SUMMARY | 2024-11-22 11:07 | XMS_ITS | Encounter Summary ---
Author Organization [employer] Address 75 [facility] 7t [place] [address] Care Team Providers Care Deputy Sheriff Chief Name Role Phone Sariah Vickers Primary Care Provider [phone] Yuri Pierre PharmD Unavailable [phone] Basilio Hall MD Unavailable [phone] Ron Preciado MD Unavailable [phone] Reason for Visit * Reason Comments Med Refill Encounter Details Date Type Department Care Team (Late st Contact Info) Description 10/03/2023 Refill [facility] 230 [place] [address] Sariah Vickers ANP 230 [place], [place] [phone] Chronic SI joint pain Social History Tobacco [...] 01/07/2025 9:30 AM EST Clinical Support [address] [address] Azeb Hall, MARTIN 505 [place] [address] 01/11/2025 1:00 PM EST Office Visit [address] [address] Sariah Vickers ANP [address] [place] [address] 02/03/2025 11:00 AM EST Medication Management [address] [address] Yuri Pierre, MikeD [address] [place] [address] documented as of this encounter Goals Goal [...] documented as of this encounter Care Teams Deputy Sheriff Chief Relationship Specialty Start Date End Date Sariah Vickers ANP 230 [place] [address] PCP - General Family Medicine 09/23/19 Yuri Pierre, MikeD [address] [place] [address] Pharmacist Internal Medicine 05/05/24 Basilio Hall MD [address] [place] [address] Cardiology 05/17/24 Ron Preciado MD [address] [place] [address] Pulmonary Disease 05/17/24 documented as of this encounter
--- OUTSIDE RECORDS SUMMARY | 2024-11-22 11:07 | XMS_ITS | Encounter Summary ---
Author Organization [employer] Address 75 [facility] 7t [place] [address] Care Team Providers Care Bar Back Name Role Phone Sariah Vickers Primary Care Provider [phone] Yuri Pierre PharmD Unavailable [phone] Basilio Hall MD Unavailable [phone] Ron Preciado MD Unavailable [phone] Reason for Visit * Reason Onset Date Comments Durable Medical Equipment 03/15/2022 Encounter Details Date Type Department Care Team (Late st Contact Info) Description 03/15/2022 Telephone [facility] MEDICINE 230 [place] [address] Sariah Vickers ANP 230 [place], [place] [phone] Durable Medical Equipment Social History Tobacco Use [...] Description 01/07/2025 9:30 AM EST Clinical Support [address] [address] Azeb Hall RN 505 [place] [address] 01/11/2025 1:00 PM EST Office Visit [address] [address] Sariah Vickers ANP [address] [place] [address] 02/03/2025 11:00 AM EST Medication Management [address] [address] Yuri Pierre, Dileep [address] [place] [address] documented as of this encounter Visit Diagnoses Not on filedocumented in this encounter Care Teams Bar Back Relationship Specialty Start Date End Date Sariah Vickers ANP [address] [place] [address] PCP - General Family Medicine 09/23/19 Yuri Pierre, PharmD [address] [place] [address] Pharmacist Internal Medicine 05/05/24 Basilio Hall MD 596 [place] [address] Cardiology 05/17/24 Ron Preciado MD [address] [place] [address] Pulmonary Disease 05/17/24 documented as of this encounter
--- OUTSIDE RECORDS SUMMARY | 2024-11-22 11:07 | XMS_ITS | Encounter Summary ---
Author Organization [employer] Address 75 [facility] 7t [place] [address] Care Team Providers Care Communications Professional Name Role Phone Sariah Vickers Primary Care Provider [phone] Yuri Pierre PharmD Unavailable [phone] Basilio Hall MD Unavailable [phone] Ron Preciado MD Unavailable [phone] Reason for Visit * Reason Comments Med Refill Encounter Details Date Type Department Care Team (Late st Contact Info) Description 11/14/2023 Refill [facility] MEDICINE 230 [place] [address] Sariah Vickers ANP 230 [place] [address] Neck pain Social History Tobacco Use Types [...] Description 01/07/2025 9:30 AM EST Clinical Support [address] [address] Azeb Hall, MARTIN 505 [place] [address] 01/11/2025 1:00 PM EST Office Visit [address] [address] Sariah Vickers ANP [address] [place] [address] 02/03/2025 11:00 AM EST Medication Management [address] [address] Yuri Pierre, MikeD [address] [place] [address] documented as of this encounter Goals Goal [...] as of this encounter Care Teams Communications Professional Relationship Specialty Start Date End Date Sariah Vickers ANP 230 [place] [address] PCP - General Family Medicine 09/23/19 Yuri Pierre, MikeD [address] [place] [address] Pharmacist Internal Medicine 05/05/24 Basilio Hall MD 596 [place] [address] Cardiology 05/17/24 Ron Preciado MD [address] [place] [address] Pulmonary Disease 05/17/24 documented as of this encounter
--- OUTSIDE RECORDS SUMMARY | 2024-11-22 11:07 | XMS_ITS | Encounter Summary ---
Author Organization [employer] Address 75 [facility] 7t [place] [address] Care Team Providers Care Strategic Planning Director Name Role Phone Sariah Vickers Primary Care Provider [phone] Yuri Pierre PharmD Unavailable [phone] Basilio Hall MD Unavailable [phone] Ron Preciado MD Unavailable [phone] Reason for Visit * Reason Comments Med Refill Encounter Details Date Type Department Care Team (Late st Contact Info) Description 03/26/2022 Refill [facility] MEDICINE 230 [place] [address] Sariah Vickers ANP 230 [place] [address] Social History Tobacco Use Types Packs/Day Years [...] Description 01/07/2025 9:30 AM EST Clinical Support [address] [address] Azeb Hall, RN 505 [place] [address] 01/11/2025 1:00 PM EST Office Visit [address] [address] Sariah Vickers ANP [address] [place] [address] 02/03/2025 11:00 AM EST Medication Management [address] [address] Yuri Pierre, PharmD [address] [place] [address] documented as of this encounter Visit Diagnoses Not on filedocumented in this encounter Care Teams Strategic Planning Director Relationship Specialty Start Date End Date Sariah Vickers ANP [address] [place] [address] PCP - General Family Medicine 09/23/19 Yuri Pierre, PharmD [address] [place] [address] Pharmacist Internal Medicine 05/05/24 Basilio Hall MD 596 [place] [address] Cardiology 05/17/24 Ron Preciado MD [address] [place] [address] Pulmonary Disease 05/17/24 documented as of this encounter
--- OUTSIDE RECORDS SUMMARY | 2024-11-22 11:07 | XMS_ITS | Encounter Summary ---
Author Organization [employer] Address 75 [facility] 7t [place] [address] Care Team Providers Care Fisheries Technical Officer Name Role Phone Sariah Vickers Primary Care Provider [phone] Yuri Pierre PharmD Unavailable [phone] Basilio Hall MD Unavailable [phone] Ron Preciado MD Unavailable [phone] Encounter Details Date Type Department Care Team (Late st Contact Info) Description 02/05/2022 Abstract [facility] MEDICINE 230 [place] [address] Sariah Vickers ANP 230 [place] [address] Social History Tobacco Use Types Packs/Day Years [...] 01/07/2025 9:30 AM EST Clinical Support [address] [address] Azeb Hall RN 505 [place] [address] 01/11/2025 1:00 PM EST Office Visit [address] [address] Sariah Vickers ANP [address] [place] [address] 02/03/2025 11:00 AM EST Medication Management [address] [address] Yuri Pierre, PharmD [address] [place] [address] documented as of this encounter Visit Diagnoses Not on filedocumented in this encounter Care Teams Fisheries Technical Officer Relationship Specialty Start Date End Date Sariah Vickers ANP [address] [place] [address] PCP - General Family Medicine 09/23/19 Yuri Pierre, PharmD [address] [place] [address] Pharmacist Internal Medicine 05/05/24 Basilio Hall MD 596 [place] [address] Cardiology 05/17/24 Ron Preciado MD [address] [place] [address] Pulmonary Disease 05/17/24 documented as of this encounter
--- OUTSIDE RECORDS SUMMARY | 2024-11-22 11:07 | XMS_ITS | Encounter Summary ---
Author Organization [employer] Address 75 [facility] 7t [place] [address] Care Team Providers Care Lawn Specialist Name Role Phone Sariah Vickers Primary Care Provider [phone] Yuri Pierre PharmD Unavailable [phone] Basilio Hall MD Unavailable [phone] Ron Preciado MD Unavailable [phone] Reason for Visit * Reason Comments Med Refill Encounter Details Date Type Department Care Team (Late st Contact Info) Description 12/17/2023 Refill [facility] 230 [place] [address] Sariah Vickers ANP 230 [place] [address] Chronic SI joint pain Social History Tobacco [...] Description 01/07/2025 9:30 AM EST Clinical Support [address] [address] Azeb Hall, MARTIN 505 [place] [address] 01/11/2025 1:00 PM EST Office Visit [address] [address] Sariah Vickers ANP [address] [place] [address] 02/03/2025 11:00 AM EST Medication Management [address] [address] Yuri Pierre, MikeD [address] [place] [address] documented as of this encounter Goals Goal [...] documented as of this encounter Care Teams Lawn Specialist Relationship Specialty Start Date End Date Sariah Vickers ANP 230 [place] [address] PCP - General Family Medicine 09/23/19 Yuri Pierre, MikeD 230 [place] [address] Pharmacist Internal Medicine 05/05/24 Basilio Hall MD [address] [place] [address] Cardiology 05/17/24 Ron Preciado MD [address] [place] [address] Pulmonary Disease 05/17/24 documented as of this encounter
--- OUTSIDE RECORDS SUMMARY | 2024-11-22 11:07 | XMS_ITS | Encounter Summary ---
Author Organization [employer] Address 75 [facility] 7t [place] [address] Care Team Providers Care Community Program Assistant Name Role Phone Sariah Vickers Primary Care Provider Yuri Pierre PharmD Unavailable [phone] Basilio Hall MD Unavailable [phone] Ron Preciado MD Unavailable [phone] Reason for Visit * Reason Comments Med Refill Encounter Details Date Type Department Care Team (Late st Contact Info) Description 01/04/2024 Refill [facility] PEDS [address] [place] [address] Sariah Vickers ANP 230 [place] [address] Cervicalgia Social History Tobacco Use Types Packs/Day [...] 01/07/2025 9:30 AM EST Clinical Support [address] [address] Azeb Hall RN 505 [place] [address] 01/11/2025 1:00 PM EST Office Visit [address] [address] Sariah Vickers ANP [address] [place] [address] 02/03/2025 11:00 AM EST Medication Management [address] [address] Yuri Pierre, MikeD [address] [place] [address] documented as of this encounter Goals Goal [...] documented as of this encounter Care Teams Community Program Assistant Relationship Specialty Start Date End Date Sariah Vickers ANP 230 [place] [address] PCP - General Family Medicine 09/23/19 Yuri Pierre, MikeD [address] [place] [address] Pharmacist Internal Medicine 05/05/24 Basilio Hall MD [address] [place] [address] Cardiology 05/17/24 Ron Preciado MD [address] [place] [address] Pulmonary Disease 05/17/24 documented as of this encounter
--- OUTSIDE RECORDS SUMMARY | 2024-11-22 11:07 | XMS_ITS | Encounter Summary ---
Author Organization [employer] Address 75 [facility] 7t [place] [address] Care Team Providers Care Residential Mental Health Worker Name Role Phone Sariah Vickers Primary Care Provider [phone] Yuri Pierre PharmD Unavailable [phone] Basilio Hall MD Unavailable [phone] Ron Preciado MD Unavailable [phone] Reason for Visit * Reason Comments Med Refill Encounter Details Date Type Department Care Team (Late st Contact Info) Description 01/06/2024 Refill [facility] MED & PEDS [address] [place] [address] Sariah Vickers ANP 230 [place] [address] Cervicalgia Social History Tobacco Use Types Packs/Day [...] Description 01/07/2025 9:30 AM EST Clinical Support [address] [address] Azeb Hall RN 505 [place] [address] 01/11/2025 1:00 PM EST Office Visit [address] [address] Sariah Vickers ANP [address] [place] [address] 02/03/2025 11:00 AM EST Medication Management [address] [address] Yuri Pierre, MikeD [address] [place] [address] documented as of this encounter Goals Goal [...] as of this encounter Care Teams Residential Mental Health Worker Relationship Specialty Start Date End Date Sariah Vickers ANP 230 [place] [address] PCP - General Family Medicine 09/23/19 Yuri Pierre, MikeD [address] [place] [address] Pharmacist Internal Medicine 05/05/24 Basilio Hall MD [address] [place] [address] Cardiology 05/17/24 Ron Preciado MD [address] [place] [address] Pulmonary Disease 05/17/24 documented as of this encounter
--- OUTSIDE RECORDS SUMMARY | 2024-11-22 11:07 | XMS_ITS | Encounter Summary ---
Author Organization [employer] Address 75 [facility] 7t [place] [address] Care Team Providers Care Oceanography Professor Name Role Phone Sariah Vickers Primary Care Provider [phone] Yuri Pierre PharmD Unavailable [phone] Basilio Hall MD Unavailable [phone] Ron Preciado MD Unavailable [phone] Reason for Visit * Reason Comments Med Refill Encounter Details Date Type Department Care Team (Late st Contact Info) Description 10/24/2023 Refill [facility] 230 [place] [address] Sariah Vickers ANP 230 [place] [address] Neck pain Social History Tobacco Use Types [...] 01/07/2025 9:30 AM EST Clinical Support [address] [address] Azeb Hall, MARTIN 505 [place] [address] 01/11/2025 1:00 PM EST Office Visit [address] [address] Sariah Vickers ANP [address] [place] [address] 02/03/2025 11:00 AM EST Medication Management [address] [address] Yuri Pierre, MikeD [address] [place] [address] documented as of this encounter Goals Goal [...] documented as of this encounter Care Teams Oceanography Professor Relationship Specialty Start Date End Date Sariah Vickers ANP 230 [place] [address] PCP - General Family Medicine 09/23/19 Yuri Pierre, MikeD [address] [place] [address] Pharmacist Internal Medicine 05/05/24 Basilio Hall MD 596 [place] [address] Cardiology 05/17/24 Ron Preciado MD [address] [place] [address] Pulmonary Disease 05/17/24 documented as of this encounter
--- OUTSIDE RECORDS SUMMARY | 2024-11-22 11:07 | XMS_ITS | Encounter Summary ---
Author Organization [employer] Address 75 [facility] 7t [place] [address] Care Team Providers Care Warehouse Man Name Role Phone Sariah Vickers Primary Care Provider [phone] Yuri Pierre PharmD Unavailable [phone] Basilio Hall MD Unavailable [phone] Ron Preciado MD Unavailable [phone] Reason for Visit * Reason Comments Med Refill Encounter Details Date Type Department Care Team (Late st Contact Info) Description 06/17/2024 Refill [facility] 230 [place] [address] Sariah Vickers ANP 230 [place], [place] [phone] Neck pain Social History Tobacco Use Types [...] Description 01/07/2025 9:30 AM EST Clinical Support [address] [address] Azeb Hall RN 505 [place] [address] 01/11/2025 1:00 PM EST Office Visit [address] [address] Sariah Vickers ANP [address] [place] [address] 02/03/2025 11:00 AM EST Medication Management [address] [address] Yuri Pierre, MikeD [address] [place] [address] documented as of this encounter Goals Goal [...] as of this encounter Care Teams Warehouse Man Relationship Specialty Start Date End Date Sariah Vickers ANP 230 [place] [address] PCP - General Family Medicine 09/23/19 Yuri Pierre, MikeD [address] [place] [address] Pharmacist Internal Medicine 05/05/24 Basilio Hall MD 596 [place] [address] Cardiology 05/17/24 Ron Preciado MD [address] [place] [address] Pulmonary Disease 05/17/24 documented as of this encounter
--- OUTSIDE RECORDS SUMMARY | 2024-11-22 11:07 | XMS_ITS | Encounter Summary ---
Author Organization [employer] Address 75 [facility] 7t [place] [address] Care Team Providers Care Monogram Maker Name Role Phone Sariah Vickers Primary Care Provider [phone] Yuri Pierre PharmD Unavailable [phone] Basilio Hall MD Unavailable [phone] Ron Preciado MD Unavailable [phone] Reason for Visit * Reason Comments Med Refill Encounter Details Date Type Department Care Team (Late st Contact Info) Description 11/26/2023 Refill [facility] MEDICINE 230 [place] [address] Sariah Vickers ANP 230 [place] [address] Vertigo Social History Tobacco Use Types Packs/Day [...] Description 01/07/2025 9:30 AM EST Clinical Support [address] [address] Azeb Hall, MARTIN 505 [place] [address] 01/11/2025 1:00 PM EST Office Visit [address] [address] Sariah Vickers ANP [address] [place] [address] 02/03/2025 11:00 AM EST Medication Management [address] [address] Yuri Pierre, MikeD [address] [place] [address] documented as of this encounter Goals Goal [...] documented as of this encounter Care Teams Monogram Maker Relationship Specialty Start Date End Date Sariah Vickers ANP 230 [place] [address] PCP - General Family Medicine 09/23/19 Yuri Pierre, MikeD [address] [place] [address] Pharmacist Internal Medicine 05/05/24 Basilio Hall MD 596 [place] [address] Cardiology 05/17/24 Ron Preciado MD [address] [place] [address] Pulmonary Disease 05/17/24 documented as of this encounter
--- OUTSIDE RECORDS SUMMARY | 2024-11-22 11:07 | XMS_ITS | Encounter Summary ---
Author Organization [employer] Address 75 [facility] 7t [place] [address] Care Team Providers Care Laundry Operator Name Role Phone Sariah Vickers Primary Care Provider [phone] Yuri Pierre PharmD Unavailable [phone] Basilio Hall MD Unavailable [phone] Ron Preciado MD Unavailable [phone] Reason for Visit * Reason Comments Med Refill Encounter Details Date Type Department Care Team (Late st Contact Info) Description 03/09/2024 Refill [facility] CH[facility] MED & PEDS [address] [place] [address] Sariah Vickers ANP 230 [place] [address] Neck pain Social History Tobacco Use Types [...] Description 01/07/2025 9:30 AM EST Clinical Support [address] [address] Azeb Hall RN 505 [place] [address] 01/11/2025 1:00 PM EST Office Visit [address] [address] Sariah Vickers ANP [address] [place] [address] 02/03/2025 11:00 AM EST Medication Management [address] [address] Yuri Pierre, MikeD [address] [place] [address] documented as of this encounter Goals Goal [...] as of this encounter Care Teams Laundry Operator Relationship Specialty Start Date End Date Sariah Vickers ANP 230 [place] [address] PCP - General Family Medicine 09/23/19 Yuri Pierre, MikeD [address] [place] [address] Pharmacist Internal Medicine 05/05/24 Basilio Hall MD 596 [place] [address] Cardiology 05/17/24 Ron Preciado MD [address] [place] [address] Pulmonary Disease 05/17/24 documented as of this encounter
--- OUTSIDE RECORDS SUMMARY | 2024-11-22 11:07 | XMS_ITS | Encounter Summary ---
Author Organization [employer] Address 75 [facility] 7t [place] [address] Care Team Providers Care Trouble Shooter Name Role Phone Sariah Vickers Primary Care Provider [phone] Yuri Pierre PharmD Unavailable [phone] Basilio Hall MD Unavailable [phone] Ron Preciado MD Unavailable [phone] Reason for Visit * Reason Comments Med Refill Patient [facility] hasn't finished her Medbox due to missing refill for medication Gabapetin . Encounter Details Date Type Department Care Team (Late st Contact Info) Description 10/03/2023 Refill [facility] 230 [place], [place] [phone] Sariah Vickers ANP 230 [place], [place] [phone] Chronic SI joint pain Social History Tobacco [...] the past 12 months, has t he [employer] gas, oil or water company threatened to [...] Description 01/07/2025 9:30 AM EST Clinical Support [address] [address] Azeb Hall RN 505 [place] [address] 01/11/2025 1:00 PM EST Office Visit [address] [address] Sariah Vickers ANP [address] [place] [address] 02/03/2025 11:00 AM EST Medication Management [address] [address] Yuri Pierre, PharmD 230 [place] [address] documented as of this encounter Goals Goal [...] documented as of this encounter Care Teams Trouble Shooter Relationship Specialty Start Date End Date Sariah Vickers ANP 230 [place] [address] PCP - General Family Medicine 09/23/19 Yuri Pierre, PharmD 230 [place] [address] Pharmacist Internal Medicine 05/05/24 Basilio Hall MD 596 [place] [address] Cardiology 05/17/24 Ron Preciado MD [address] [place] [address] Pulmonary Disease 05/17/24 documented as of this encounter
--- OUTSIDE RECORDS SUMMARY | 2024-11-22 11:07 | XMS_ITS | Encounter Summary ---
Author Organization [employer] Address 75 [facility] 7t [place] [address] Care Team Providers Care Machines Technician Name Role Phone Sariah Vickers Primary Care Provider Yuri Pierre PharmD Unavailable [phone] Basilio Hall MD Unavailable [phone] Ron Preciado MD Unavailable [phone] Encounter Details Date Type Department Care Team (Late st Contact Info) Description 10/20/2024 Results Follow-Up [facility] 230 [place] [address] Sariah Vickers ANP 230 [place] [address] Prothrombin Time-INR, C-reactive Protein, Amylase, Additional followed-up [...] Description 01/07/2025 9:30 AM EST Clinical Support [address] [address] Azeb Hall RN 505 [place] [address] 01/11/2025 1:00 PM EST Office Visit [address] [address] Sariah Vickers ANP [address] [place] [address] 02/03/2025 11:00 AM EST Medication Management [address] [address] Yuri Pierre PharmD 230 [place] [address] documented as of this encounter Goals Goal Patient Goal Type Associated Problems Recent Progress Patient-Stated? Author Blood Pressure < 140/90 Blood Pressure 132/88(2024 8:49 AM EDT) No Piers-Gambl eVeronicasa, PharmD Record Your [...] documented as of this encounter Care Teams Machines Technician Relationship Specialty Start Date End Date Sariah Vickers ANP 230 [place] [address] PCP - General Family Medicine 09/23/19 Yuri Pierre, PharmD 230 [place] [address] Pharmacist Internal Medicine 05/05/24 Basilio Hall MD 596 [place] [address] Cardiology 05/17/24 Ron Preciado MD [address] [place] [address] Pulmonary Disease 05/17/24 documented as of this encounter
--- OUTSIDE RECORDS SUMMARY | 2024-11-22 11:07 | XMS_ITS | Encounter Summary ---
Author Organization [employer] Address 75 [facility] 7t [place] [address] Care Team Providers Care Concrete Block Layer Name Role Phone Sariah Vickers Primary Care Provider [phone] Yuri Pierre PharmD Unavailable [phone] Basilio Hall MD Unavailable [phone] Ron Preciado MD Unavailable [phone] Reason for Visit * Reason Comments Med Refill Encounter Details Date Type Department Care Team (Late st Contact Info) Description 10/17/[address] [facility] MEDICINE 230 [place] [address] Sariah Vickers ANP 230 [place] [address] Neck pain Social History Tobacco Use Types [...] Description 01/07/2025 9:30 AM EST Clinical Support [address] [address] Azeb Hall, MARTIN 505 [place] [address] 01/11/2025 1:00 PM EST Office Visit [address] [address] Sariah Vickers ANP [address] [place] [address] 02/03/2025 11:00 AM EST Medication Management [address] [address] Yuri Pierre, MikeD [address] [place] [address] documented as of this encounter Goals Goal [...] documented as of this encounter Care Teams Concrete Block Layer Relationship Specialty Start Date End Date Sariah Vickers ANP 230 [place] [address] PCP - General Family Medicine 09/23/19 Yuri Pierre, MikeD [address] [place] [address] Pharmacist Internal Medicine 05/05/24 Basilio Hall MD 596 [place] [address] Cardiology 05/17/24 Ron Preciado MD [address] [place] [address] Pulmonary Disease 05/17/24 documented as of this encounter
--- OUTSIDE RECORDS SUMMARY | 2024-11-22 11:07 | XMS_ITS | Encounter Summary ---
Author Organization [employer] Address 75 [facility] 7t [place] [address] Care Team Providers Care Motion Picture Film Examiner Name Role Phone Sariah Vickers Primary Care Provider [phone] Yuri Pierre PharmD Unavailable [phone] Basilio Hall MD Unavailable [phone] Ron Preciado MD Unavailable [phone] Reason for Visit * Reason Onset Date Comments Med Refill 01/09/2024 Encounter Details Date Type Department Care Team (Late st Contact Info) Description 01/09/2024 Telephone [facility] MEDICINE 230 [place] [address] Sariah Vickers ANP 230 [place], [place] [phone] Med Refill Social History Tobacco Use Types [...] Description 01/07/2025 9:30 AM EST Clinical Support [address] [address] Azeb Hall, MARTIN 505 [place] [address] 01/11/2025 1:00 PM EST Office Visit [address] [address] Sariah Vickers ANP [address] [place] [address] 02/03/2025 11:00 AM EST Medication Management [address] [address] Yuri Pierre, MikeD [address] [place] [address] documented as of this encounter Goals Goal [...] documented as of this encounter Care Teams Motion Picture Film Examiner Relationship Specialty Start Date End Date Sariah Vickers ANP 230 [place] [address] PCP - General Family Medicine 09/23/19 Yuri Pierre, MikeD [address] [place] [address] Pharmacist Internal Medicine 05/05/24 Basilio Hall MD [address] [place] [address] Cardiology 05/17/24 Ron Preciado MD [address] [place] [address] Pulmonary Disease 05/17/24 documented as of this encounter
--- OUTSIDE RECORDS SUMMARY | 2024-11-22 11:08 | XMS_ITS | Encounter Summary ---
Author Organization [employer] Address 75 [facility] 7t [place] [address] Care Team Providers Care Compressor Operator Portable Name Role Phone Sariah Vickers Primary Care Provider Yuri Pierre PharmD Unavailable [phone] Basilio Hall MD Unavailable [phone] Ron Preciado MD Unavailable [phone] Reason for Visit * Reason Comments Med Refill Encounter Details Date Type Department Care Team (Late st Contact Info) Description 07/10/2023 Refill [facility] 230 [place] [address] Sariah Vickers ANP 230 [place], [place] [phone] Chronic SI joint pain Social History Tobacco [...] Description 01/07/2025 9:30 AM EST Clinical Support [address] [address] Azeb Hall, MARTIN 505 [place] [address] 01/11/2025 1:00 PM EST Office Visit [address] [address] Sariah Vickers ANP [address] [place] [address] 02/03/2025 11:00 AM EST Medication Management [address] [address] Yuri Pierre, MikeD [address] [place] [address] documented as of this encounter Goals Goal [...] documented as of this encounter Care Teams Compressor Operator Portable Relationship Specialty Start Date End Date Sariah Vickers ANP 230 [place] [address] PCP - General Family Medicine 09/23/19 Yuri Pierre, MikeD [address] [place] [address] Pharmacist Internal Medicine 05/05/24 Basilio Hall MD [address] [place] [address] Cardiology 05/17/24 Ron Preciado MD [address] [place] [address] Pulmonary Disease 05/17/24 documented as of this encounter
--- OUTSIDE RECORDS SUMMARY | 2024-11-22 11:08 | XMS_ITS | Encounter Summary ---
Author Organization [employer] Address 75 [facility] 7t [place] [address] Care Team Providers Care Embossing Calender Operator Name Role Phone Sariah Vickers Primary Care Provider Yuri Pierre PharmD Unavailable [phone] Basilio Hall MD Unavailable [phone] Ron Preciado MD Unavailable [phone] Reason for Visit * Reason Comments Med Refill Encounter Details Date Type Department Care Team (Late st Contact Info) Description 12/19/2022 Refill [facility] MEDICINE 230 [place] [address] Sariah Vickers ANP 230 [place] [address] Vertigo Social History Tobacco Use Types Packs/Day [...] Description 01/07/2025 9:30 AM EST Clinical Support [address] [address] Azeb Hall RN 505 [place] [address] 01/11/2025 1:00 PM EST Office Visit [address] [address] Sariah Vickers ANP [address] [place] [address] 02/03/2025 11:00 AM EST Medication Management [address] [address] Yuri Pierre, MikeD [address] [place] [address] documented as of this encounter Goals Goal Patient Goal Type Associated Problems Recent Progress Patient-Stated? Author Blood Pressure < 140/90 Blood Pressure 132/88(2024 8:49 AM EDT) No Aida Ragland PharmD Record Your Blood Sugar As Directed General No Aida Ragland PharmD Hemoglobin A1c < 7 Result Component 6.6( 1:54 PM EDT) Aida Ernst PharmD documented as of this encounter Visit Diagnoses Diagnosis Vertigo Dizziness and giddiness documented in this encounter Care Teams Embossing Calender Operator Relationship Specialty Start Date End Date Sariah Vickers ANP 230 [place] [address] PCP - General Family Medicine 09/23/19 Yuri Pierre, MikeD 230 [place] [address] Pharmacist Internal Medicine 05/05/24 Basilio Hall MD [address] [place] [address] [id number] Cardiology 05/17/24 Ron Preciado MD [address] [place] [address] Pulmonary Disease 05/17/24 documented as of this encounter
--- OUTSIDE RECORDS SUMMARY | 2024-11-22 11:08 | XMS_ITS | Encounter Summary ---
Author Organization [employer] Address 75 [facility] 7t [place] [address] Care Team Providers Care Cytotechnologist Supervisor Name Role Phone Sariah Vickers Primary Care Provider [phone] Yuri Pierre PharmD Unavailable [phone] Basilio Hall MD Unavailable [phone] Ron Preciado MD Unavailable [phone] Reason for Visit * Reason Comments Med Refill Encounter Details Date Type Department Care Team (Late st Contact Info) Description 05/21/2023 Refill [facility] MEDICINE 230 [place] [address] Sariah Vickers ANP 230 [place] [address] Neck pain Social History Tobacco Use Types [...] Description 01/07/2025 9:30 AM EST Clinical Support [address] [address] Azeb Hall, RN 505 [place] [address] 01/11/2025 1:00 PM EST Office Visit [address] [address] Sariah Vickers, KAYLEE [address] [place] [address] 02/03/2025 11:00 AM EST Medication Management [address] [address] Yuri Pierre, PharmD [address] [place] [address] documented as of this encounter Goals Goal [...] Cervicalgia documented in this encounter Care Teams Cytotechnologist Supervisor Relationship Specialty Start Date End Date Sariah Vickers ANP 230 [place] [address] PCP - General Family Medicine 09/23/19 Yuri Pierre, MikeD 230 [place] [address] Pharmacist Internal Medicine 05/05/24 Basilio Hall MD 596 [place] [address] Cardiology 05/17/24 Ron Preciado MD [address] [place] [address] Pulmonary Disease 05/17/24 documented as of this encounter
--- OUTSIDE RECORDS SUMMARY | 2024-11-22 11:08 | XMS_ITS | Encounter Summary ---
Author Organization [employer] Address 75 [facility] 7t [place] [address] Care Team Providers Care Varnisher Plasticoater Name Role Phone Sariah Vickers Primary Care Provider [phone] Yuri Pierre PharmD Unavailable [phone] Basilio Hall MD Unavailable [phone] Ron Preciado MD Unavailable [phone] Reason for Visit * Reason Onset Date Comments Nurse Triage 01/14/2023 Encounter Details Date Type Department Care Team (Late st Contact Info) Description 01/14/2023 Telephone [facility] MEDICINE 230 [place] [address] Sariah Vickers ANP 230 [place] [address] Nurse Triage Social History Tobacco Use Types [...] 01/14/2023 9:26 AM EST Called pt. Via sifonr extrusion operator [phone] Kelly. Pt. States that she has been having a fire feeling in her legs. Its like A burning that goes down her legs . Pt. Unsure if it because of her Diabetes. Pt. Went to [facility] ED for pain on her left side [...] 10am. Will send note to clinical manager critical care to have note put in chart . [...] Severe pain now, pt was seen at [facility] on 01/13 for pain in leg. Pt is still symptomatic The caller accepted this outcome Please contact pt at [phone] (specialty sales representative needed) documented in this encounter Plan of Treatment Upcoming Encounters Date Type Department Care Team (Late st Contact Info) Description 01/07/2025 9:30 AM EST Clinical Support [address] [address] Azeb Hall RN 505 [place] [address] 01/11/2025 1:00 PM EST Office Visit [address] [address] Sariah Vickers ANP [address] [place] [address] 02/03/2025 11:00 AM EST Medication Management [address] [address] Yuri Pierre, PharmD [address] [place] [address] documented as of this encounter Goals Goal [...] on filedocumented in this encounter Care Teams Varnisher Plasticoater Relationship Specialty Start Date End Date Sariah Vickers ANP [address] [place] [address] PCP - General Family Medicine 09/23/19 Yuri Pierre, MikeD 230 [place], [place] [phone] Pharmacist Internal Medicine 05/05/24 Basilio Hall MD 596 [place], [place] 9490840 Cardiology 05/17/24 Ron Preciado MD [address] [place] [phone] Pulmonary Disease 05/17/24 documented as of this encounter
--- OUTSIDE RECORDS SUMMARY | 2024-11-22 11:08 | XMS_ITS | Encounter Summary ---
Author Organization [employer] Address 75 [facility] 7t [place] [address] Care Team Providers Care Bioanalyst Name Role Phone Sariah Vickers Primary Care Provider [phone] Yuri Pierre PharmD Unavailable [phone] Basilio Hall MD Unavailable [phone] Ron Preciado MD Unavailable [phone] Reason for Visit * Reason Comments Med Refill Encounter Details Date Type Department Care Team (Late st Contact Info) Description 11/12/2024 Refill [facility] MEDICINE 230 [place] [address] Sariah Vickers ANP 230 [place] [address] Neck pain Social History Tobacco Use Types [...] Description 01/07/2025 9:30 AM EST Clinical Support [address] [address] Azeb Hall RN 505 [place] [address] 01/11/2025 1:00 PM EST Office Visit [address] [address] Sariah Vickers, ANP [address] [place] [address] 02/03/2025 11:00 AM EST Medication Management [address] [address] Yuri Pierre, PharmD [address] [place] [address] documented as of this encounter Goals Goal [...] documented as of this encounter Care Teams Bioanalyst Relationship Specialty Start Date End Date Sariah Vickers ANP 230 [place] [address] PCP - General Family Medicine 09/23/19 Yuri Pierre, MikeD 230 [place] [address] Pharmacist Internal Medicine 05/05/24 Basilio Hall MD 596 [place] [address] Cardiology 05/17/24 Ron Preciado MD [address] [place] [address] Pulmonary Disease 05/17/24 documented as of this encounter
--- OUTSIDE RECORDS SUMMARY | 2024-11-22 11:08 | XMS_ITS | Encounter Summary ---
Author Organization [employer] Address 75 [facility] 7t [place] [address] Care Team Providers Care Boat Repairer Name Role Phone Sariah Vickers Primary Care Provider [phone] Yuri Pierre PharmD Unavailable [phone] Basilio Hall MD Unavailable [phone] Ron Preciado MD Unavailable [phone] Reason for Visit * Reason Onset Date Comments Referral 05/17/2022 Encounter Details Date Type Department Care Team (Late st Contact Info) Description 05/17/2022 Telephone [facility] MEDICINE 230 [place] [address] Sariah Vickers ANP 230 [place], [place] [phone] Referral Social History Tobacco Use Types Packs/Day [...] guide to vertigo. Please contact pt at [phone] documented in this encounter Plan of Treatment Upcoming Encounters Date Type Department Care Team (Late st Contact Info) Description 01/07/2025 9:30 AM EST Clinical Support [address] [address] Azeb Hall RN 505 [place] [address] 01/11/2025 1:00 PM EST Office Visit [address] [address] Sariah Vickers ANP [address] [place] [address] 02/03/2025 11:00 AM EST Medication Management [address] [address] Yuri Pierre, PharmD [address] [place] [address] documented as of this encounter Visit Diagnoses Not on filedocumented in this encounter Care Teams Boat Repairer Relationship Specialty Start Date End Date Sariah Vickers ANP [address] [place] [address] PCP - General Family Medicine 09/23/19 Yuri Pierre, PharmD [address] [place] [address] Pharmacist Internal Medicine 05/05/24 Basilio Hall MD 596 [place] [address] Cardiology 05/17/24 Ron Preciado MD [address] [place] [address] Pulmonary Disease 05/17/24 documented as of this encounter
--- OUTSIDE RECORDS SUMMARY | 2024-11-22 11:08 | XMS_ITS | Encounter Summary ---
Author Organization [employer] Address 75 [facility] 7t [place] [address] Care Team Providers Care Ec Teacher Name Role Phone Sariah Vickers Primary Care Provider [phone] Yuri Pierre PharmD Unavailable [phone] Basilio Hall MD Unavailable [phone] Ron Preciado MD Unavailable [phone] Reason for Visit * Reason Onset Date Comments Nurse Triage 12/24/2022 Encounter Details Date Type Department Care Team (Late st Contact Info) Description 12/24/2022 Telephone [facility] MEDICINE 230 [place] [address] Sariah Vickers ANP 230 [place] [address] Nurse Triage Social History Tobacco Use Types [...] - 12/24/2022 1:11 PM EST Called pt.via [employer] spanish medical interpreter [id number] Benjamin. Pt. States that she wants to [...] regimen and possible referral to a new Card Setter due to pt. Not having jeremie in [...] accepted this outcome Please contact pt at [phone] documented in this encounter Plan of Treatment Upcoming Encounters Date Type Department Care Team (Late st Contact Info) Description 01/07/2025 9:30 AM EST Clinical Support [address] [address] Azeb Hall, RN 505 [place] [address] 01/11/2025 1:00 PM EST Office Visit [address] [address] Sariah Vickers ANP [address] [place] [address] 02/03/2025 11:00 AM EST Medication Management [address] [phone] Yuri Pierre PharmD [address] [place] [address] documented as of this encounter Goals Goal [...] on filedocumented in this encounter Care Teams Ec Teacher Relationship Specialty Start Date End Date Sariah Vickers ANP [address] [place] [address] PCP - General Family Medicine 09/23/19 Yuri Pierre, PharmD [address] [place] [address] Pharmacist Internal Medicine 05/05/24 Basilio Hall MD 596 [place] [address] Cardiology 05/17/24 Ron Preciado MD [address] [place] [address] Pulmonary Disease 05/17/24 documented as of this encounter
--- OUTSIDE RECORDS SUMMARY | 2024-11-22 11:08 | XMS_ITS | Encounter Summary ---
Author Organization [employer] Address 75 [facility] 7t [place] [address] Care Team Providers Care Conveyor Console Operator Name Role Phone Sariah Vickers Primary Care Provider [phone] Yuri Pierre PharmD Unavailable [phone] Basilio Hall MD Unavailable [phone] Ron Preciado MD Unavailable [phone] Reason for Visit * Reason Comments Med Refill Encounter Details Date Type Department Care Team (Late st Contact Info) Description 05/23/2024 Refill [facility] [address] [place] [address] Sariah Vickers ANP 230 [place] [address] Cervicalgia Social History Tobacco Use Types Packs/Day [...] 01/07/2025 9:30 AM EST Clinical Support [address] [address] Azeb Hall RN 505 [place] [address] 01/11/2025 1:00 PM EST Office Visit [address] [address] Sariah Vickers ANP [address] [place] [address] 02/03/2025 11:00 AM EST Medication Management [address] [address] Yuri Pierre, MikeD [address] [place] [address] documented as of this encounter Goals Goal [...] documented as of this encounter Care Teams Conveyor Console Operator Relationship Specialty Start Date End Date Sariah Vickers ANP 230 [place] [address] PCP - General Family Medicine 09/23/19 Yuri Pierre, MikeD [address] [place] [address] Pharmacist Internal Medicine 05/05/24 Basilio Hall MD [address] [place] [address] Cardiology 05/17/24 Ron Preciado MD [address] [place] [address] Pulmonary Disease 05/17/24 documented as of this encounter
--- OUTSIDE RECORDS SUMMARY | 2024-11-22 11:08 | XMS_ITS | Encounter Summary ---
Author Organization [employer] Address 75 [facility] 7t [place] [address] Care Team Providers Care Cadd Manager Name Role Phone Sariah Vickers Primary Care Provider [phone] Yuri Pierre PharmD Unavailable [phone] Basilio Hall MD Unavailable [phone] Ron Preciado MD Unavailable [phone] Reason for Visit * Reason Comments Med Refill Encounter Details Date Type Department Care Team (Late st Contact Info) Description 05/09/2023 Refill [facility] MEDICINE 230 [place] [address] Sariah Vickers ANP 230 [place] [address] High cholesterol Social History Tobacco Use Types [...] Description 01/07/2025 9:30 AM EST Clinical Support [address] [address] Azeb Hall RN 505 [place] [address] 01/11/2025 1:00 PM EST Office Visit [address] [address] Sariah Vickers ANP [address] [place] [address] 02/03/2025 11:00 AM EST Medication Management [address] [address] Yuri Pierre, MikeD [address] [place] [address] documented as of this encounter Goals Goal [...] hypercholesterolemia documented in this encounter Care Teams Cadd Manager Relationship Specialty Start Date End Date Sariah Vickers ANP 230 [place] [address] PCP - General Family Medicine 09/23/19 Yuri Pierre, MikeD 230 [place] [address] Pharmacist Internal Medicine 05/05/24 Basilio Hall MD 596 [place], [place] [address]24740 Cardiology 05/17/24 Ron Preciado MD [address] [place] [address] Pulmonary Disease 05/17/24 documented as of this encounter
--- OUTSIDE RECORDS SUMMARY | 2024-11-22 11:08 | XMS_ITS | Encounter Summary ---
Author Organization [employer] Address 75 [facility] 7t [place] [address] Care Team Providers Care Coffee Bar Attendant Name Role Phone Sariah Vickers Primary Care Provider [phone] Yuri Pierre PharmD Unavailable [phone] Basilio Hall MD Unavailable [phone] Ron Preciado MD Unavailable [phone] Reason for Visit * Reason Comments Med Refill Encounter Details Date Type Department Care Team (Late st Contact Info) Description 06/30/2023 Refill [facility] MEDICINE 230 [place] [address] Sariah Vickers ANP 230 [place] [address] Neck pain Social History Tobacco Use Types [...] Description 01/07/2025 9:30 AM EST Clinical Support [address] [address] Azeb Hall, MARTIN 505 [place] [address] 01/11/2025 1:00 PM EST Office Visit [address] [address] Sariah Vickers ANP [address] [place] [address] 02/03/2025 11:00 AM EST Medication Management [address] [address] Yuri Pierre, MikeD [address] [place] [address] documented as of this encounter Goals Goal [...] as of this encounter Care Teams Coffee Bar Attendant Relationship Specialty Start Date End Date Sariah Vickers ANP 230 [place] [address] PCP - General Family Medicine 09/23/19 Yuri Pierre, MikeD [address] [place] [address] Pharmacist Internal Medicine 05/05/24 Basilio Hall MD 596 [place] [address] Cardiology 05/17/24 Ron Preciado MD [address] [place] [address] Pulmonary Disease 05/17/24 documented as of this encounter
--- OUTSIDE RECORDS SUMMARY | 2024-11-22 11:08 | XMS_ITS | Encounter Summary ---
Author Organization [employer] Address 75 [facility] 7t [place] [address] Care Team Providers Care Senior Network Engineer Name Role Phone Sariah Vickers Primary Care Provider [phone] Yuri Pierre PharmD Unavailable [phone] Basilio Hall MD Unavailable [phone] Ron Preciado MD Unavailable [phone] Encounter Details Date Type Department Care Team (Late st Contact Info) Description 10/26/2024 Results Follow-Up [facility] MEDICINE 230 [place] [address] Sariah Vickers ANP 230 [place] [address] Thyroid Peroxidase Antibodies, Cardiolipin Antibodies (IgA,IgG,IgM) Social [...] Description 01/07/2025 9:30 AM EST Clinical Support [address] [address] Azeb Hall RN 505 [place] [address] 01/11/2025 1:00 PM EST Office Visit [address] [address] Sariah Vickers ANP [address] [place] [address] 02/03/2025 11:00 AM EST Medication Management [address] [address] Yuri Pierre PharmD 230 [place] [address] documented as of this encounter Goals Goal [...] as of this encounter Care Teams Senior Network Engineer Relationship Specialty Start Date End Date Sariah Vickers ANP 230 [place] [address] PCP - General Family Medicine 09/23/19 Yuri Pierre, PharmD 230 [place] [address] Pharmacist Internal Medicine 05/05/24 Basilio Hall MD 596 [place] [address] Cardiology 05/17/24 Ron Preciado MD [address] [place] [address] Pulmonary Disease 05/17/24 documented as of this encounter
--- OUTSIDE RECORDS SUMMARY | 2024-11-22 11:08 | XMS_ITS | Encounter Summary ---
Author Organization [employer] Address 75 [facility] 7t [place] [address] Care Team Providers Care Carpenter And Joiner Name Role Phone Sariah Vickers Primary Care Provider [phone] Yuri Pierre PharmD Unavailable [phone] Basilio Hall MD Unavailable [phone] Ron Preciado MD Unavailable [phone] Reason for Visit * Reason Comments Med Refill Encounter Details Date Type Department Care Team (Late st Contact Info) Description 03/07/2023 Refill [facility] MEDICINE 230 [place] [address] Sariah Vickers ANP 230 [place] [address] Vertigo Social History Tobacco Use Types Packs/Day [...] Description 01/07/2025 9:30 AM EST Clinical Support [address] [address] Azeb Hall RN 505 [place] [address] 01/11/2025 1:00 PM EST Office Visit [address] [address] Sariah Vickers ANP [address] [place] [address] 02/03/2025 11:00 AM EST Medication Management [address] [address] Yuri Pierre, MikeD [address] [place] [address] documented as of this encounter Goals Goal [...] giddiness documented in this encounter Care Teams Carpenter And Joiner Relationship Specialty Start Date End Date Sariah Vickers ANP 230 [place] [address] PCP - General Family Medicine 09/23/19 Yuri Pierre, MikeD 230 [place] [address] Pharmacist Internal Medicine 05/05/24 Basilio Hall MD [address] [place] [phone] Cardiology 05/17/24 Ron Preciado MD [address] [place] [address] Pulmonary Disease 05/17/24 documented as of this encounter
--- OUTSIDE RECORDS SUMMARY | 2024-11-22 11:08 | XMS_ITS | Encounter Summary ---
Author Organization [employer] Address 75 [facility] 7t [place] [address] Care Team Providers Care Atmospheric Chemist Name Role Phone Sariah Vickers KAYLEE Primary Care Provider [phone] Yuri Pierre PharmD Unavailable [phone] Basilio Hall MD Unavailable [phone] Ron Preciado MD Unavailable [phone] Reason for Visit * Reason Comments Med Refill Encounter Details Date Type Department Care Team (Late st Contact Info) Description 11/19/2024 Refill [facility] 230 [place] [address] Chava Presley MD 230 [place], [place] [phone] Social History Tobacco Use Types Packs/Day Years [...] 01/07/2025 9:30 AM EST Clinical Support [address] [address] Azeb Hall RN 505 [place] [address] 01/11/2025 1:00 PM EST Office Visit [address] [address] Sariah Vickers, ANP [address] [place] [address] 02/03/2025 11:00 AM EST Medication Management [address] [address] Yuri Pierre, PharmD [address] [place] [address] documented as of this encounter Goals Goal Patient Goal Type Associated Problems Recent Progress Patient-Stated? Author Blood Pressure < 140/90 Blood Pressure 132/88(2024 8:49 AM EDT) No Aida Ragland, PharmD Record Your Blood Sugar As Directed General No Aida Ragland PharmD Hemoglobin A1c < 7 Result Component 6.6( 5 1:54 PM EDT) No Aida Ragland, PharmD documented as of this encounter Visit Diagnoses Not on filedocumented in this encounter Additional Health Concerns Assessment Noted Time PHQ-9 Depression Total Score: 11 025 5:30 PM EDT documented as of this encounter Care Teams Atmospheric Chemist Relationship Specialty Start Date End Date Sariah Vickers ANP 230 [place] [address] PCP - General Family Medicine 09/23/19 Yuri Pierre, MikeD 230 [place] [address] Pharmacist Internal Medicine 05/05/24 Basilio Hall MD 596 [place] [address] Cardiology 05/17/24 Ron Preciado MD [address] [place] [address] Pulmonary Disease 05/17/24 documented as of this encounter
--- OUTSIDE RECORDS SUMMARY | 2024-11-22 11:08 | XMS_ITS | Clinical Summary ---
Author Organization [employer] Address [address] [place] [address] Care Team Providers Care Chili Powder Mixer Name Role Phone Anthony Ruiz KAYLEE Primary Care Provider [phone] Yuri Pierre PharmD Unavailable [phone] Basilio Hall MD Unavailable [phone] Ron Preciado MD Unavailable [phone] Allergies Active Allergy Reactions Criticality Noted [...] mouth in the morning. Active Lactobacillus-In ulin ([facility] [facility]) capsule 023 Active Xolair 150 MG/ML [...] inhalerIndicatio ns:Severe persistent allergic asthma without complication (HCC) INHALE 2 PUFFS BY MOUTH EVERY 4 TO 6 HOURS NEEDED 18 g 2 023 Active Combivent Respimat 20-100 MCG/ACT inhaler 023 Active Misc. Devices (Pulse Oximeter For Finger) misc 1 each 2 times daily. 1 each 023 Active glucose 4 g chewable tabletIndication s:Type 2 diabetes mellitus with hyperlipidemia (HCC) CHEW 4 TABLETS BY MOUTH NEEDED LOW [...] miscIndications: Type 2 diabetes mellitus with hyperlipidemia (HCC) USE DIRECTED THREE TIMES DAILY 100 each 5 Active amLODIPine (Norvasc) 10 MG tablet TAKE 1 TABLET BY MOUTH EVERY EVENING 90 tablet 1 Active montelukast (Singulair) 10 MG tablet TAKE 1 TABLET BY MOUTH EVERY EVENING 90 tablet 1 Active Continuous Glucose Staking Press Operator (FreeStyle Jalil 3 Essie) device 1 each Once per day. Use as directed for CGM 1 each Active Continuous Glucose Sensor (FreeStyle Jalil 3 Plus Sensor) misc 1 each every 15 days. Apply 1 every 15 days as directed for CGM 2 each Active Ketotifen Fumarate ( Ketotifen Fumarate) 0.035 % solutionIndicati ons:Allergic conjunctivitis of both eyes Administer 1 drop into affected eye(s) 2 times daily. 10 mL Active semaglutide (Ozempic) 2 MG/1.5ML solution pen-injectorIndi cations:Type 2 diabetes mellitus with hyperlipidemia (HCC) Inject 0.5 mg under the skin 1 (one) time per week. 1 each Active insulin lispro (HumaLOG KWIKPEN) 100 UNIT/ML injectionIndicat ions:Type 2 diabetes mellitus with hyperlipidemia (HCC) Take 4-6 units as needed if BG high while taking prednisone; As needed as directed by provider 6 mL 1 Active hydrocortisone (Anusol-HC) 2.5 % rectal cream APPLY 1 APPLICATORFUL RECTALLY TWICE DAILY FOR FOR HEMORRHOIDS Active busPIRone (Buspar) 15 MG tablet Take 1 tablet by mouth every 6 (six) hours during the day. Active cetirizine (ZyrTEC) 10 MG tablet Take 1 tablet (10 mg) by mouth Once per day. 30 tablet 025 2025 Active Diclofenac Sodium 1 % gelIndications:C hronic bilateral low back pain, unspecified whether sciatica present APPLY 2 GRAMS TOPICALLY TO AFFECTED AREA(S) ONCE DAILY NEEDED FOR PAIN 100 g 1 025 Active TRUEplus Lancets 33G miscIndications: Type 2 diabetes mellitus with hyperglycemia (HCC) TEST BLOOD SUGAR FOUR TIMES DAILY 200 each 5 025 Active enalapril (Vasotec) 20 MG tabletIndication s:Essential hypertension TAKE 1 TABLET BY MOUTH EVERY MORNING 30 tablet 1 025 Active Fluticasone-Salm eterol 250-50 MCG/ACT aerosol powderIndication s:Severe persistent asthma without complication (HCC) INHALE 1 PUFF BY MOUTH TWICE DAILY, RINSE MOUTH AFTER USING. 60 each 5 025 Active gabapentin (Neurontin) 400 MG capsuleIndicatio ns:Chronic SI joint pain TAKE 1 CAPSULE BY MOUTH AT BEDTIME 30 capsule 2 025 Active ipratropium-albu terol (Duo-Neb) 0.5-2.5 mg/3 mL nebulizer solutionIndicati ons:Severe persistent asthma without complication (HCC) INHALE AMPULE USING A NEBULIZER EVERY 6 [...] THE EVENING 180 tablet 1 025 Active acetaminophen (Tylenol) 325 MG tabletIndication s:Neck pain TAKE 1 TO 2 TABLETS BY MOUTH EVERY 6 HOURS NEEDED 120 tablet 025 Active Blood Glucose Monitoring Suppl (FreeStyle Lite) w/Device kit 1 each 3 times daily. 1 kit 025 Active Denta 5000 Plus 1.1 % cream APPLY TO TEETH TWICE DAILY DIRECTED 102 g 025 Active traMADol (Ultram) 50 MG tabletIndication s:Cervicalgia TAKE 1 TABLET BY MOUTH TWICE DAILY IN THE MORNING AND AT BEDTIME NEEDED FOR SEVERE PAIN 60 tablet 025 Active levothyroxine (Synthroid, Levoxyl) 88 MCG tablet Take 88 mcg by mouth in the morning. 025 Active Baqsimi Two Pack 3 MG/DOSE nasal powderIndication s:Type 2 diabetes mellitus with diabetic neuropathy, with long-term current use of insulin (HCC) USE 1 SPRAY (3MG) IN ONE NOSTRIL FOR A PATIENT WITH SEVERE HYPOGLYCEMIA WHO IS NOT RESPONSIVE AND UNABLE SELF-TREAT WITH GLUCOSE. AFTERWARDS TURN ON SIDE. MAY REPEAT IN 15MINUTES IF PATIENT DOES NOT RESPOND. 2 each 1 Active Glutose 15 40 % gel oral gel TAKE 15 GRAMS BY MOUTH DAILY NEEDED FOR LOW BLOOD SUGAR 112.5 g 2 Active potassium chloride CR (Klor-Con M20) 20 MEQ ER tablet TAKE 1 TABLET BY MOUTH TWICE DAILY IN THE MORNING AND IN THE EVENING 180 tablet 1 025 2024 Discontinued(R eorder (will not trigger notification to Pharmacy)) levothyroxine (Synthroid, Levoxyl) 75 MCG tabletIndication s:Hypothyroidism , unspecified TAKE 1 TABLET BY MOUTH EVERY MORNING 90 tablet 4 025 2024 Discontinued(D ose adjustment) Sodium Fluoride (PreviDent 5000 Booster Plus) 1.1 % paste Apply 1 Application. to teeth 2 times daily. 112 g 3 025 2024 Discontinued fluticasone (Flonase) 50 MCG/ACT nasal spray INSTILL 2 SPRAYS IN EACH NOSTRIL ONCE DAILY IN THE MORNING 16 g 3 025 2024 Discontinued glucagon (Baqsimi Two Pack) 3 MG/DOSE nasal powderIndication s:Type 2 diabetes mellitus with diabetic neuropathy, with long-term current use of insulin (HCC) Administer 3 mg into affected nostril(s) 1 (one) time if needed for low blood sugar for up to 1 dose. USE 1 SPRAY (3MG) IN ONE NOSTRIL FOR A PATIENT WITH SEVERE HYPOGLYCEMIA WHO IS NOT RESPONSIVE AND UNABLE SELF-TREAT WITH GLUCOSE. AFTERWARDS TURN ON SIDE. MAY REPEAT IN 15MINUTES IF PATIENT DOES NOT RESPOND. 2 each 1 025 2024 Discontinued acetaminophen (Tylenol) 325 MG tabletIndication s:Neck pain TAKE 1 TO 2 TABLETS BY MOUTH EVERY 6 HOURS NEEDED 120 tablet 025 2024 Discontinued Glutose 15 40 % gel oral gel TAKE 15 GRAM BY MOUTH DIRECTED FOR LOW BLOOD SUGAR 2024 Discontinued(R eorder (will not trigger notification to Pharmacy)) traMADol (Ultram) 50 MG tabletIndication s:Cervicalgia TAKE [...] per day. 025 2024 Discontinued(T herapy completed) Glutose 15 40 % gel oral gel Take 15 g by mouth if needed for low blood sugar. 60 g 2 025 2024 Discontinued Active Problems Problem Noted Date Diagnosed Date Vaginal bleeding 11/03/2024 Assessment & Plan (11/03/2024 12:59 PM EDT): Post menopausal bleeding in patient s/p hysterectomy X 1 episode On exam, source of bleeding most likely ectactic enlarged blood vessel of inner L labia Continue to monitor Apply Vaseline to area twice daily to seal bleeding vessel Will refer to network/telecom engineer for followup if needed Return precautions for [...] on left side 02/13/2024 Moderate episode of recurren t major depressive disorder (CMS/HCC) 09/25/2023 Assessment & Plan (10/19/2024 5:45 PM [...] She is currently connected with services through [facility]. Pt needing additional support due [...] her family. She will continue services with [facility] for OP therapy and psychiatry services. clinician will be available if needed during next medical appointment. PLAN: (check all that apply) Continue with current services (defined as services in the past 12 months) . Pt is engaged with OP therapy and psychiatry services with [facility] @ [facility] Excessive attrition of teeth, generalized [...] her family. She will continue services with [facility] for OP therapy and psychiatry services. clinician will be available if needed during next medical appointment. PLAN: (check all that apply) Continue with current services (defined as services in the past 12 months) . Pt is engaged with OP therapy and psychiatry services with [facility] @ [facility] Fibromyalgia 07/31/2022 Asthma-COPD overlap syndrome (CMS/HCC) Right foot pain 06/21/2022 Assessment & Plan [...] for possible plantar fasciitis -referred today to regenerator operator x ongoing discomfort -may need orthopedic [...] individual therapy and psychiatry with N at [facility]. Sees psych provider every two [...] 10/29/2022 Acute asthma exacerbation 07/31/2022 COPD exacerbation ([facility]) 07/31/2022 05/17/2024 Assessment & Plan (10/27/2023 4:48 [...] organization. Date Type Department Care Team Description 11/19/2024 Refill [facility] [address] [place] [address] Chava Presley MD 11/16/2024 Refill [facility] PEDS [address] [place] [address] Anthony Ruiz ANP Type 2 diabetes mellitus with diabetic neuropathy, with long-term current use of insulin (CMS/[facility]) 11/15/2024 Travel 11/14/2024 Refill [facility] [address] [place] [address] Anthony Ruiz ANP Cervicalgia 11/12/2024 Refill [facility] MEDICINE [address] [place] [address] Anthony Ruiz ANP Neck pain 11/11/2024 Refill [facility] ADULT DENTAL [address] [place] [address] Yogesh Gomez, JOHN 11/10/2024 3:30 PM EDT Immunization [address] [address] Yohana Quinn RN Encounter for immunization 11/10/2024 Travel 11/09/2024 9:00 AM EDT Office Visit [facility] [address] [place] [address] Chava Presley MD Type 2 diabetes mellitus with hyperlipidemia ([facility]) (Primary Dx) 11/09/2024 Telephone [facility] [address] [place] [address] Azeb Hall, MARTIN 11/09/2024 Travel 11/08/2024 Telephone [facility] [address] [place] [phone] Anthony Ruiz ANP Nurse Triage 11/05/2024 2:30 PM EDT Office Visit [facility] [address] [place] [address] Hallie Tapia MD Boils (Primary Dx) 11/05/2024 Travel 11/03/2024 Telephone [facility] [place] [address] Anthony Ruiz ANP Results 11/01/2024 2:45 PM EDT Office Visit [facility] [address] [place] [phone] Reta Sue MD Vaginal bleeding (Primary Dx); Dietary counseling; Exercise counseling; Class 2 obesity without serious comorbidity with body mass index (BMI) of 35.0 to 35.9 in adult, unspecified obesity type; Vulvar itching; Constipation, unspecified constipation type; Hemorrhoids, unspecified hemorrhoid type 11/01/2024 Travel 10/29/2024 Refill [facility] [address] [place] [address] Anthony Ruzi ANP Neck pain 10/26/2024 Results Follow-Up [facility] [address] [place] [address] Anthony Ruiz ANP Thyroid Peroxidase Antibodies, Cardiolipin Antibodies (IgA,IgG,IgM) 10/25/2024 Refill [facility] [address] [place] [address] Anthony Ruiz ANP 10/23/2024 Refill [facility] [address] [place] [address] Anthony Ruiz ANP 10/22/2024 Orders Only GENERIC EXTERNAL DATA DEPARTMENT Provider, Generic External Data 10/20/2024 Results Follow-Up [facility] [address] [place] [phone] Anthony Ruiz ANP Prothrombin Time-INR, C-reactive Protein, Amylase, Additional followed-up results: 7 10/19/2024 Refill [facility] [address] [place] [address] Anthony Ruiz ANP Cervicalgia 10/14/2024 1:30 PM EDT Office Visit [facility] [address] [place] [phone] Anthony Ruiz ANP Type 2 diabetes mellitus with hyperlipidemia (CMS/HCC) (CMS/HCC) (Primary Dx); Chronic pain of both knees; Chronic SI joint pain; Primary osteoarthritis of both knees; Essential hypertension; Long-term current use of opiate analgesic; OKEEFE (nonalcoholic steatohepatitis); Asthma-COPD overlap syndrome ([facility]) 10/14/2024 Travel 10/13/2024 10:40 AM EDT Office Visit [facility] WALK-IN [address] [address] Chava Presley MD Essential hypertension (Primary Dx) 10/13/2024 Travel 10/12/2024 Orders Only GENERIC EXTERNAL DATA DEPARTMENT Provider, Generic External Data 10/09/2024 Refill [facility] [address] [place] [phone] Anthony Ruiz ANP Severe persistent asthma without complication 10/06/2024 Travel 10/04/2024 Refill [facility] [address] [place] [address] Zakia Uriostegui NP Type 2 diabetes mellitus with hyperglycemia ([facility]) 10/01/2024 11:00 AM EDT Clinical Support [facility] [address] [place] [address] Azeb Hall, RN Neck pain 10/01/2024 Telephone [facility] [address] [place] [address] Azeb Hall, RN 10/01/2024 Travel 09/30/2024 Telephone [facility] [address] [place] [address] Anthony Ruiz ANP Referral 09/30/2024 Telephone [facility] [address] [place] [address] Anthony Ruiz ANP Referral 09/30/2024 Refill [facility] [address] [place] [address] Anthony Ruiz ANP Chronic SI joint pain 09/28/2024 Orders Only [facility] [address] [place] [address] Anthony Ruiz ANP 09/25/2024 Refill [facility] [address] [place] [address] Anthony Ruiz ANP Chronic SI joint pain; Essential hypertension; Severe persistent asthma without complication 09/24/2024 2:00 PM EDT Office Visit [facility] OPTOMETRY [address] [place] [address] Juan, Luisa, OD Diabetes type 2, no ocular involvement (CMS/HCC) (Primary Dx); Mixed type age-related cataract, both eyes; Lesion of left lower eyelid; Presbyopia 09/24/2024 Travel 09/19/2024 Refill [facility] [address] [place] [address] Debra Faye MD Cervicalgia 09/16/2024 Refill [facility] [address] [place] [address] Zakia Uriostegui NP Type 2 diabetes mellitus with hyperglycemia ([facility]/HCC); Neck pain 09/03/2024 Telephone [facility] [address] [place] [address] Anthony Ruiz ANP Appointment Request 09/02/2024 Telephone [facility] [address] [place] [address] Anthony Ruiz ANP Durable Medical Equipment 08/26/2024 Telephone [facility] [address] [place] [address] Anthony Ruiz ANP Durable Medical Equipment 08/23/2024 Refill [facility] [address] [place], [place] [phone] Anthony Ruiz ANP Type 2 diabetes mellitus with hyperglycemia ([facility]) from Last 3 Months Immunizations Immunization Administration [...] housing situation today? I have rodrigocarlie kent 07/15/[address] you [...] 01/07/2025 9:30 AM EST Clinical Support [address] [address] Azeb Hall, RN [address] [place] [address] 01/11/2025 1:00 PM EST Office Visit [address] [address] Anthony Ruiz, KAYLEE [address] [place] [address] 02/03/2025 11:00 AM EST Medication Management [address] [address] Yuri Pierre, PharmD [address] [place] [phone] Health Maintenance Due Date Last Done Comments [...] 11/09/2024 Dental X-Ray: Full Mouth 09/12/2026 09/12/2023, 2 08/2018 Eye Exam 09/24/2026 09/24/2024, 08/09/2024, 09/24/2024, Additional history exists Colonoscopy 12/27/2026 12/27/2021 [...] WITH REFLEX Routine 10/22/2024 10:49 AM EDT [id number] I ANTIBODIES (IGG, IGA, IGM) Routine 10/22/2024 10:49 AM EDT ACTIN (SMOOTH MUSCLE) ANTIBODY (IGG) Routine 10/22/2024 10:49 AM EDT CARDIOLIPIN AB (IGA,IGG,IGM) Routine 10/22/2024 10:49 AM EDT THYROID PEROXIDASE ANTIBODIES Routine 10/22/2024 10:49 AM EDT POCT GLYCATED HEMOGLOBIN, TOTAL Routine 10/14/2024 1:54 PM EDT Type 2 diabetes mellitus with hyperlipidemia (CMS/HCC) ([facility]) POCT GLUCOSE Routine 10/14/2024 1:52 PM EDT Type 2 diabetes mellitus with hyperlipidemia (CMS/HCC) ([facility]) REX SCREEN, IFA, W/REFL TITER AND [...] Routine 10/01/2024 10:43 AM EDT Neck pain HEPATITIS C ANTIBODY ([place] [facility]) Routine 08/06/2024 [...] DETECTION BY PCR NOT DETECTED Not Detect [facility] BACTERIAL VAGINOSIS DETECTION BY PCR NEGATIVE Negative [facility] Comment:The BV organism targ ets [...] DETECTION BY PCR NOT DETECTED Not Detect [facility] Eufemia glab krusei PCR NOT DETECTED Not Detect [facility] Swab Vaginal structure / Unknown 11/01/2024 11/01/2024 Reta Sue MD LAB MICROBIOLOGY - GENERAL ORD ERABLES Final Result [facility] [address] [place] [phone] * [id number] I Antibodies (IgG, IgA, IgM) (10/22/2024 10:49 AM EDT) B2 Glycoprotein I IgG Antibody <2.0 <20.0 U/mL [facility] Comment:Value Interpretation ----- < 20.0 Antibody not detected> or = 20.0 Antibody detected B2 Glycoprotein I IgM Antibody <2.0 <20.0 U/mL [facility] Comment:Value Interpretation ----- < 20.0 Antibody not detected> or = 20.0 Antibody detected B2 Glycoprotein I IgA Antibody <2.0 <20.0 U/mL [facility] Comment: Value Interpretation----- < 20.0 Antibody not detected> or = 20.0 Antibody detectedThe antiphospholipid antibody syndrome (APS) is aclinical- pathologic correlation that includes aclinical event (e.g. arterial or venous thrombosis, morbidity) and persistent positiveantiphospholipid antibodies (IgM, IgG Cardiolipin ahs5HJC antibodies greater than the 99th percentile;or a [...] therapy or aging.For additional information, please refer tohttp://education.7-bites/faq/UAG601(This link is being provided for informational/educational purposes only.)THIS TEST WAS PERFORMED AT:[employer] [id number] [place] [address]SVJCXEMDEAN CASAS MD,PHD 10/22/2024 10:4 9 AM EDT 10/22/2024 10:49 AM EDT Generic External Data Provider LAB BLOOD ORDERAB LES Final Result Performing Organization Address [facility] Co de Phone Number [facility] [address] [place] [phone] * (ABNORMAL) Thyroid Peroxidase Antibodies (10/22/2024 10:49 AM EDT) Thyroid Peroxidase Antibodies >900(A) <9 IU/mL [facility] Comment:THIS TEST WAS PERFOR MED AT:[employer] [address] [id number] WARREN MD 10/22/2024 10:4 9 AM EDT 10/22/2024 10:49 AM EDT Generic External Data Provider LAB BLOOD ORDERAB LES Final Result Performing Organization Address [facility] Co de Phone Number [facility] [address] [place] [phone] * (ABNORMAL) Actin (Smooth Muscle) Antibody (IgG) (10/22/2024 10:49 AM EDT) Only the most recent of2 resultswithin the time period is included. Smooth Muscle Antibody 47(A) <20 U [facility] Comment:Reference Range: <20 U: Negative>or=20 [...] with AIH type 1.THIS TEST WAS PERFORMED AT:[employer]/[place] [address]OQCYHUADEAN CASAS MD,PHD 10/22/2024 10:4 9 AM EDT 10/22/2024 10:49 AM EDT us Generic External Data Provider LAB BLOOD ORDERAB LES Final Result [facility] [address] [place] [address] [phone] * Lupus Anticoagulant Evaluation with Reflex (10/22/2024 10:49 AM EDT) Pathologist [facility] Lupus Interpretation see note [facility] Comment:A Lupus Anticoagulan t is not detected.Reference Range: Not DetectedFor additional information, please refer tohttp://education.7-bites/faq/FTJ44u0(This link is being provided for informational/educational purposes only.)This interpretation is based on the following testresults. PTT (LAC) Screen 33 <=40 sec [facility] DRVVT Screen 35 <=45 sec [facility] Comment:THIS TEST WAS PERFOR MED AT:[employer]/[place] [address]QDBGNMBDEAN CASAS MD,PHD dRVVT Confirmation TNP [facility] dRVVT 1:1 Mix TNP [facility] DRVVT 1:1 Mix Interpretation [facility] Hexagonal Phase Neutralization [facility] Thrombin Clotting Time [facility] 10/22/2024 10:4 9 AM EDT 10/22/2024 10:49 AM EDT us Generic External Data Provider LAB BLOOD ORDERAB LES Final Result [facility] [address] [place] [phone] * Cardiolipin Antibodies (IgA,IgG,IgM) (10/22/2024 10:49 AM EDT) Cardiolipin Antibody (IgG) <2.0 GPL-U/mL [facility] Comment:Value Interpretation ----- < 20.0 Antibody not detected> or = 20.0 Antibody detected Cardiolipin Antibody (IgM) <2.0 MPL-U/mL [facility] Comment: Value Interpretation----- < 20.0 Antibody not detected> or = 20.0 Antibody detectedThe antiphospholipid antibody syndrome (APS) is aclinical- pathologic correlation that includes aclinical event (e.g. arterial or venous thrombosis, morbidity) and persistent positiveantiphospholipid antibodies (IgM, IgG Cardiolipin owb6ECN antibodies greater than the 99th percentile; ora [...] therapy or aging.For additional information, please refer tohttp://education.7-bites/faq/WSJ099(This link is being provided for informational/educational purposes only.)THIS TEST WAS PERFORMED AT:[employer] [place] [id number] WARREN MD 10/22/2024 10:4 9 AM EDT 10/22/2024 10:49 AM EDT us Generic External Data Provider LAB BLOOD ORDERAB LES Final Result [facility] [address] [place] [phone] * (ABNORMAL) POCT HGB A1C (10/14/2024 1:54 PM EDT) Pathologist [facility] Hemoglobin A1C 6.6(A) 4.0 - 5.7 % QC Media Lot # [id number] Lot# Expiration Date 4, Blood 10/14/2024 1:54 PM EDT [facility] Alee ANP POINT OF CARE TEST ENTER/EDIT OR DERABLES Final Result * POCT Glucose (10/14/2024 1:52 PM EDT) Pathologist [facility] Glucose Blood, POC 121 60 - 200 mg/dL QC Media Lot # [id number] Lot# Expiration Date [id number] Blood Capillary blood specimen / Unknown 10/14/2024 1:52 PM EDT [facility] Ruiz ANP POINT OF CARE TEST ENTER/EDIT OR DERABLES Final Result * (ABNORMAL) TSH with Reflex to Free T4 (10/12/2024 2:10 PM EDT) TSH reflex Free T4 6.80(H) 0.32 - 4.0 uIU/mL [facility] 10/12/2024 2:10 PM EDT 10/12/2024 2:10 PM EDT Generic External Data Provider LAB BLOOD ORDERAB LES Final Result Performing Organization Address [facility] Co de Phone Number [facility] [address] [place] [phone] * Prothrombin Time-INR (10/12/2024 2:10 PM EDT) Prothrombin Time 10.9 10.9 - 12.4 SEC [facility] INTERNATIONAL NORM RATIO 1.0 0.9 - 1.1 [facility] Comment:INTERNATIONAL NORMAL IZED RATIO (INR) [...] ORDERAB LES Final Result Performing Organization Address [facility] de Phone Number [facility] [address] [place] [phone] * C-reactive Protein (10/12/2024 2:10 PM EDT) C Reactive Protein 0.31 < or = 0.50 mg/dL [facility] 10/12/2024 2:10 PM EDT 10/12/2024 2:10 PM EDT Generic External Data Provider LAB BLOOD ORDERAB LES Final Result Performing Organization Address [facility] Co de Phone Number [facility] [address] [place] [phone] * (ABNORMAL) REX Screen,IFA, with Reflex to Titer and Pattern (10/12/2024 2:10 PM EDT) Anti Nuclear Antibody Screen POSITIV E(A) NEGATIVE [facility] Comment:REX IFA is a first l ine screen for detecting thepresence of up to approximately 150 autoantibodies invarious autoimmune diseases. A positive REX IFA resultis suggestive of autoimmune disease and reflexes totiter and pattern. Further laboratory testing may beconsidered if clinically indicated.For additional information, please refer tohttp://education.Citygoo/faq/JYK199(This link is being provided for informational/educational purposes only.)THIS TEST WAS PERFORMED AT:[employer] [place] [phone]- [phone] WARREN MD REX Titer 1:1280( A) titer [facility] Comment:Reference Range <1:4 0 Negative 1:40-1:80 Low Antibody Level >1:80 Elevated Antibody Level REX Pattern Nuclear , Homogen eous(A) [facility] Comment:Homogeneous pattern is associated with systemic lupuserythematosus (SLE), drug-induced lupus and juvenileidiopathic arthritis.AC-1: HomogeneousInternational Consensus on REX Patterns(https://doi.org/10.1515/gpkd-8121-6184)THIS TEST WAS PERFORMED AT:[employer] [place] [address] [phone] WARREN MD REX TITER 2 (REF LAB) [facility] REX Pattern 2 [facility] REX TITER 3 [facility] REX PATTERN 3 [facility] 10/12/2024 2:10 PM EDT 10/12/2024 2:10 PM EDT us Generic External Data Provider LAB BLOOD ORDERAB LES Final Result [facility] [address] [place] [phone] [phone] * T4, Free (10/12/2024 2:10 PM EDT) Free T4 (Free Thyroxine) 0.99 0.71 - 1.85 ng/dL [facility] 10/12/2024 2:10 PM EDT 10/12/2024 2:10 PM EDT us Generic External Data Provider LAB BLOOD ORDERAB LES Final Result Performing Organization Address [facility] Co de Phone Number [facility] [address] [place] [phone] * Lipase (10/12/2024 2:10 PM EDT) Pathologist [facility] Lipase 20 8 - 78 U/L [facility] 10/12/2024 2:10 PM EDT 10/12/2024 2:10 PM EDT Generic External Data Provider LAB BLOOD ORDERAB LES Final Result Performing Organization Address [facility] de Phone Number [facility] [address] [place] [phone] * (ABNORMAL) Hemoglobin A1c (10/12/2024 2:10 PM EDT) [facility] Hemoglobin A1c 6.5(H) <6.0 % [facility] Comment:Hemoglobin A1C Refer ence Range Adults: 4.8 - 6.0 % Non diabetic: < 6.0 % Goal: < 7.0 %Additional Action Suggested: > 8.0 %Note: Hemoglobin A1c results are invalid for patients with abnormal amounts of HbF. Blood transfusions may impact the HbA1c concentration in the patient sample. Estimated Average Glucose 140 mg/dL [facility] Comment:eAG = Estimated ave rage glucose which is %A1C expressed asaverage glucose, using the formula of the K9Z-JviwysjIlyzsag Glucose study (ADAG), Diabetes Care, Vol.31,#8,Sep. 2007 10/12/2024 2:10 PM EDT 10/12/2024 2:10 PM EDT Generic External Data Provider LAB BLOOD ORDERAB LES Final Result Performing Organization Address [facility] Co de Phone Number [facility] [address] [place] [phone] * Ferritin (10/12/2024 2:10 PM EDT) Ferritin 69 10 - 250 ng/mL [facility] 10/12/2024 2:10 PM EDT 10/12/2024 2:10 PM EDT Generic External Data Provider LAB BLOOD ORDERAB LES Final Result Performing Organization Address [facility] de Phone Number [facility] [address] [place] [phone] * Amylase (10/12/2024 2:10 PM EDT) Amylase 36 28 - 100 U/L [facility] 10/12/2024 2:10 PM EDT 10/12/2024 2:10 PM EDT Generic External Data Provider LAB BLOOD ORDERAB LES Final Result Performing Organization Address [facility] de Phone Number [facility] [address] [place] [phone] * CT Lung Screening Low dose (10/09/2024 1:18 PM EDT) Anatomical Region Laterality Modality Lung Computed Tomogra phy 10/09/2024 1:18 PM EDT Narrative 10/09/2024 1:20 PM EDT [address] [address] [address] Scan Report Signed Patient: Nuvia Fay MR #: [id number] : 1960 Acct:[id number] Age/Sex: 64 / F ADM Date: 10/08/24 Loc: HO.CT Attending Dr: Ron Preciado MD Ordering Physician: Ron Preciado MD Date of Service: 10/08/24 Procedure(s): CT lung screening Accession Number(s): [id number] cc: Ron Preciado MD; ANTHONY RUIZ NP Report Number: [id number]: Total DLP = 64.00 mGy-cm CLINICAL HISTORY: [...] OV> 10/09/24 1319 DD/ 1318 TD/TT: 10/09/241317 Building Construction Contractor: Procedure Note Martitater, Image - 10/09/[address] [place] [address] [address] Scan Report Signed Patient: Nuvia Fay EMR #: [id number] : 1Acct:[id number] Age/Sex: 64 / FADM Date: 10/08/24 Loc: HO.CT Attending Dr: Ron Preciado MD Ordering Physician: Ron Preciado MD Date of Service: 10/08/24 Procedure(s): CT lung screening Accession Number(s): [id number] cc: Ron Preciado MD; ANTHONY RUIZ NP Report Number: [id number]: Total DLP = 64.00 mGy-cm CLINICAL HISTORY: [...] signed by Ligia Myrick MD in OV> 10/09/241318 DD/ 17 TD/TT: 10/09/241317 Building Construction Contractor: [facility] External Provider IMG CT PROCEDURES Edited Result - Final * POCT FRANKLIN-14 Urine Drug Screen (10/01/2024 10:43 AM EDT) Pathologist [facility] THC Negative Negative Cocaine Screen, Urine Negative [...] - 10/01/2024 10:43 AM EDT .UTOX cup Lot#[id number] Exp. 11/23/25 Internal Pass Control [facility] POINT OF CARE TEST ENTER/EDIT OR DERABLES Final Result * Hepatitis C Antibody ([facility]) (08/06/2024) Hepatitis C Ab Nonreactive Blood 08/06/2024 Historical Provider MD LAB BLOOD ORDERABLES Kelsey l Result * HIV Ab/Ag ([facility]) (08/06/2024) Pathologist [facility] HIV Ag/Ab Nonreactive Blood 08/06/2024 [facility] LAB BLOOD ORDERABLES Kelsey l Result * (ABNORMAL) Lipid Panel, Standard (06/18/2024 10:18 AM EDT) Pathologist [facility] Triglycerides 122 <150 mg/dL [facility] Comment:Desirable Triglyceri de: less than 150 mg/dLBorderline High Triglyceride 150-199 mg/dLHigh Triglyceride: 200-499 mg/dLVery High Triglyceride: greater than or equal to 5OO mg/dL Cholesterol 216(H) <200 mg/dL [facility] Comment:Desirable Cholestero l: less than 200 mg/dLBorderline High Cholesterol: 200-239 mg/dLHigh Cholesterol: greater than 239 mg/dL LDL Cholesterol Calculated 128(H) <100 mg/dL [facility] Comment:Desirable LDL: less than 100 mg/dLNear Optimal/Above Optimal LDL: 110- 129 mg/dLBorderline High LDL: 130-159 mg/dLHigh LDL: 160-189 mg/dLVery High LDL: greater than or equal to 190 mg/dL HDL Cholesterol 64 >40 mg/dL [facility] Comment:Desirable HDL: great er than 40 mg/dL Note: This HDL assay may give artificially low results in patients with liver disease. Blood Venous blood specimen / Unknown 06/18/2024 10:18 AM EDT 06/18/2024 11:08 AM EDT [facility]lee PAGE LAB BLOOD ORDERABLES Final Resul t [facility] [address] [place] [phone] [phone] * BI Mammogram Screening Tomosynthesis Bilateral (04/12/2024 1:48 PM EST) Anatomical Region Laterality Modality Breast Bilateral Mammography 04/12/2024 1:48 PM EST Narrative 04/17/2024 12:38 PM EST [facility] [address] [place] [address] Mammography Report Signed Patient: Nuvia Fay MR #: [id number] : 1960 Acct:[id number] Age/Sex: 63 / F ADM Date: 04/12/24 Loc: HO.MAMMO Attending Dr: Monica Lozano CNM Ordering Physician: Monica Lozano CNM Results: 2Beni gn Findings Date of Service: 04/12/24 Follow Up: 1 Year From Orig ina Mammogram Procedure(s): MM tomosynthesis screening BI Accession Number(s): [id number] cc: Monica Lzoano CNM; ANTHONY RUIZ NP EXAMINATION: MM SCREENING [...] 04/17/24 1235 DD/ 1348 TD/TT: 04/12/24 1405 Building Construction Contractor: Procedure Note Donotuseinterpreter, Image - 04/17/2024 [facility]'s [address] [place] [address] Mammography Report Signed Patient: Nuvia Fay EMR #: [id number] : 1960cct:[id number] Age/Sex: 63 / FADM Date: 04/12/24 Loc: HO.MAMMO Attending Dr: Monica Lozano CNM Ordering Physician: Monica Lozanoesults: 2Beni gn Findings Date of Service: 04/12/24Follow Up: 1 Year From Orig inal Mammogram Procedure(s): MM tomosynthesis screening BI Accession Number(s): [id number] cc: Monica Lozano CNM; ANTHONY RUIZ NP [...] 04/17/24 1235 DD/ 1348 TD/TT: 04/12/24 1405 Building Construction Contractor: us [facility] External Provider IMG BI PROCEDURES Edited Result - Final * Albumin, Random Urine W/Creatinine (01/02/2024 8:44 AM EST) Creatinine, Urine 47.20 mg/dL [facility] Microalbumin Urine 7.0 mg/L [facility] Microalbum Creatinine Ratio Ur 14.8 <30 ug/mg cr [facility] Comment:Albumin/Creatinine R atio Reference Ranges: Normal: < 30 ug/mg creatinine Microalbuminuria: 30 - 300 ug/mg creatinineClinical Albuminuria: > 300 ug/mg creatinine Urine (Urine, Random) 01/02/2024 8:44 AM EST 01/02/2024 11:09 AM EST [facility] LAB URINE ORDERABLES Final Resul t [facility] [address] [place] [phone] * (ABNORMAL) Hm Colonoscopy (12/27/2021) Colonoscopy Abnormal(A ) Normal Historical Provider HEALTH MAINTENANCE Final Result * HPV E6/E7 RFLX ALFRED 16 18/45 (05/09/2020 11:19 AM EDT) HPV mRNA E6/E7 rflx Not Detected Not Detected [facility] Comment: Methodology: Quality Process Auditor-Mediated Amplification This assay detects E6/E7 viral messenger RNA (mRNA) from 14 high-risk HPV types (16,18,31,33,35,39,45,51,52,56,58,59,66,68). The analytical performance characteristics of this assay have been determined by [employer]. The modifications have not been cleared or approved by the FDA. This assay has been validated pursuant to the CLIA regulations and is used for clinical purposes. For additional information, please refer to http://education.Ecwid.[employer]/faq/FXS408x3 (This link if provided for information/ educational purposes only.) THIS TEST WAS PERFORMED AT: [employer] [address] [place] [address] [address] FLO[address],[place] [address] HERNAN WARREN MD 05/09/2020 11:1 9 AM EDT us Yohana Lu HISTORICAL/NON ORDERABLE LABS Fi nal Result [facility] [address] [place] [address], from Last 3 Months or Most Recently Relevant to Health Maintenance Insurance [facility] < [address] [place] [id number] [facility] Care Teams Chili Powder Mixer Relationship Specialty Start Date End Date Anthony Ruiz ANP [address] [place], [place] PCP - General Family Medicine 09/23/19 Yuri Pierre, MikeD [address] [place], [place] Pharmacist Internal Medicine 05/05/24 Basilio Hall MD [address] [place], [place] Cardiology 05/17/24 Ron Preciado MD [address] [place] [address] Pulmonary Disease 05/17/24
--- OUTSIDE RECORDS SUMMARY | 2024-11-22 11:08 | XMS_ITS | Encounter Summary ---
Author Organization [employer] Address [address] [facility] 7t [place] [address] Care Team Providers Care Quality Assurance Coach Name Role Phone Sariah Vickers KAYLEE Primary Care Provider [phone] Yuri Pierre PharmD Unavailable [phone] Basilio Hall MD Unavailable [phone] Ron Preciado MD Unavailable [phone] Reason for Visit * Reason Comments Med Refill Encounter Details Date Type Department Care Team (Late st Contact Info) Description 11/11/2024 Refill [facility] [address] [place] [address] Yogesh Gomez, JOHN [address] [place] [address] Social History Tobacco Use Types Packs/Day Years [...] Miscellaneous Notes * Telephone Encounter - Yogesh Gomez DMD - 11/11/2024 1:03 PM EDT Approving, but needs appt for additional refills. documented in this encounter Plan of Treatment Upcoming Encounters Date Type Department Care Team (Late st Contact Info) Description 01/07/2025 9:30 AM EST Clinical Support [address] [address] Azeb Hall, MARTIN [address] [place] [address] 01/11/2025 1:00 PM EST Office Visit [address] [address] Sariah Vickers ANP [address] [place] [address] 02/03/2025 11:00 AM EST Medication Management [address] [address] Yuri Pierre, PharmD [address] [place] [address] documented as of this encounter Goals Goal Patient Goal Type Associated Problems Recent Progress Patient-Stated? Author Blood Pressure < 140/90 Blood Pressure 132/88(2024 8:49 AM EDT) No Aida Ragland PharmD Record Your Blood Sugar As Directed General No Katelin-Aida Medina PharmD Hemoglobin A1c < 7 Result Component 6.6( 1:54 PM EDT) No Phanis-Gambl Aida urbina PharmD documented as of this encounter Visit Diagnoses Not on filedocumented in this encounter Additional Health Concerns Assessment Noted Time PHQ-9 Depression Total Score: 11 025 5:30 PM EDT documented as of this encounter Care Teams Quality Assurance Coach Relationship Specialty Start Date End Date Sariah Vickers ANP [address] [place] [address] PCP - General Family Medicine 09/23/19 Yuri Pierre PharmD [address] [place] [address] Pharmacist Internal Medicine 05/05/24 Basilio Hall MD [address] [place] [address] Cardiology 05/17/24 Ron Preciado MD [address] [place] [address] Pulmonary Disease 05/17/24 documented as of this encounter
--- OUTSIDE RECORDS SUMMARY | 2024-11-22 11:08 | XMS_ITS | Encounter Summary ---
Author Organization [employer] Address [address] [facility] 7t [place] [address] Care Team Providers Care Hose Inspector And Patcher Name Role Phone Sariah Vickers Primary Care Provider [phone] Yuri Pierre PharmD Unavailable [phone] Basilio Hall MD Unavailable [phone] Ron Preciado MD Unavailable [phone] Reason for Visit * Reason Comments Med Refill Encounter Details Date Type Department Care Team (Late st Contact Info) Description 07/17/2022 Refill [facility] [address] [place] [address] Sariah Vickers ANP [address] [place] [address] Neck pain Social History Tobacco Use Types [...] Description 01/07/2025 9:30 AM EST Clinical Support [address] [address] Azeb Hall, RN [address] [place] [address] 01/11/2025 1:00 PM EST Office Visit [address] [address] Sariah Vickers ANP [address] [place] [address] 02/03/2025 11:00 AM EST Medication Management [address] [address] Yuri Pierre, Dileep [address] [place] [address] documented as of this encounter Visit Diagnoses Diagnosis Neck pain Cervicalgia documented in this encounter Care Teams Hose Inspector And Patcher Relationship Specialty Start Date End Date Sariah Vickers ANP [address] [place] [address] PCP - General Family Medicine 09/23/19 Yuri Pierre, PharmD [address] [place] [address] Pharmacist Internal Medicine 05/05/24 Basilio Hall MD [address] [place] [address] Cardiology 05/17/24 Ron Preciado MD [address] [place] [address] Pulmonary Disease 05/17/24 documented as of this encounter
--- OUTSIDE RECORDS SUMMARY | 2024-11-22 11:08 | XMS_ITS | Encounter Summary ---
Author Organization [employer] Address [address] [facility] 7t [place] [address] Care Team Providers Care Supervisor Heavy Equipment Name Role Phone Sariah Vickers Primary Care Provider [phone] Yuri Pierre PharmD Unavailable [phone] Basilio Hall MD Unavailable [phone] Ron Preciado MD Unavailable [phone] Reason for Visit * Reason Comments Med Refill Encounter Details Date Type Department Care Team (Late st Contact Info) Description 07/12/2022 Refill [facility] [address] [place] [address] Sariah Vickers ANP [address] [place] [address] Social History Tobacco Use Types Packs/Day Years [...] Description 01/07/2025 9:30 AM EST Clinical Support [address] [address] Azeb Hall, RN [address] [place] [address] 01/11/2025 1:00 PM EST Office Visit [address] [address] Sariah Vickers ANP [address] [place] [address] 02/03/2025 11:00 AM EST Medication Management [address] [address] Yuri Pierre, PharmD [address] [place] [address] documented as of this encounter Visit Diagnoses Not on filedocumented in this encounter Care Teams Supervisor Heavy Equipment Relationship Specialty Start Date End Date Sariah Vickers ANP [address] [place] [address] PCP - General Family Medicine 09/23/19 Yuri Pierre, PharmD [address] [place] [address] Pharmacist Internal Medicine 05/05/24 Basilio Hall MD [address] [place] [address] Cardiology 05/17/24 Ron Preciado MD [address] [place] [address] Pulmonary Disease 05/17/24 documented as of this encounter
--- OUTSIDE RECORDS SUMMARY | 2024-11-22 11:08 | XMS_ITS | Encounter Summary ---
Author Organization [employer] Address [address] [facility] 7t [place] [address] Care Team Providers Care Mine Analyst Name Role Phone Sariah Vickers KAYLEE Primary Care Provider [phone] Yuri Pierre PharmD Unavailable [phone] Basilio Hall MD Unavailable [phone] Ron Preciado MD Unavailable [phone] Reason for Visit * Reason Comments Med Refill Encounter Details Date Type Department Care Team (Late st Contact Info) Description 03/04/2023 Refill [facility] [address] [place] [address] Brittney Nava MD [address] [place] [address] Social History Tobacco Use Types Packs/Day Years [...] Description 01/07/2025 9:30 AM EST Clinical Support [address] [address] Azeb Hall, MARTIN [address] [place] [address] 01/11/2025 1:00 PM EST Office Visit [address] [address] Sariah Vickers ANP [address] [place] [address] 02/03/2025 11:00 AM EST Medication Management [address] [address] Yuri Pierre, MikeD [address] [place] [address] documented as of this encounter Goals Goal [...] on filedocumented in this encounter Care Teams Mine Analyst Relationship Specialty Start Date End Date Sariah Vickers ANP [address] [place] [address] PCP - General Family Medicine 09/23/19 Yuri Pierre, MikeD [address] [place] [address] Pharmacist Internal Medicine 05/05/24 Basilio Hall MD [address] [place] [address] Cardiology 05/17/24 Ron Preciado MD [address] [place] [address] Pulmonary Disease 05/17/24 documented as of this encounter
--- OUTSIDE RECORDS SUMMARY | 2024-11-22 11:08 | XMS_ITS | Encounter Summary ---
Author Organization [employer] Address 75 [facility] 7t [place] [address] Care Team Providers Care Calendering Supervisor Name Role Phone Sariah Vickers Primary Care Provider [phone] Yuri Pierre PharmD Unavailable [phone] Basilio Hall MD Unavailable [phone] Ron Preciado MD Unavailable [phone] Reason for Visit * Reason Comments Med Refill Encounter Details Date Type Department Care Team (Late st Contact Info) Description 08/14/2022 Refill [facility] [address] [place] [address] Sariah Vickers ANP [address] [place] [address] Severe persistent asthma without complication Social History [...] Description 01/07/2025 9:30 AM EST Clinical Support [address] [address] Azeb Hall, RN [address] [place] [address] 01/11/2025 1:00 PM EST Office Visit [address] [address] Sariah Vickers ANP [address] [place] [address] 02/03/2025 11:00 AM EST Medication Management [address] [address] Yuri Pierre, PharmD [address] [place] [address] documented as of this encounter Visit Diagnoses Diagnosis Severe persistent asthma without complication (HCC) documented in this encounter Care Teams Calendering Supervisor Relationship Specialty Start Date End Date Sariah Vickers ANP [address] [place] [address] PCP - General Family Medicine 09/23/19 Yuri Pierre, PharmD [address] [place] [address] Pharmacist Internal Medicine 05/05/24 Basilio Hall MD [address] [place] [address] Cardiology 05/17/24 Ron Preciado MD [address] [place] [address] Pulmonary Disease 05/17/24 documented as of this encounter
--- OUTSIDE RECORDS SUMMARY | 2024-11-22 11:08 | XMS_ITS | Encounter Summary ---
Author Organization [employer] Address [address] [facility] 7t [place] [address] Care Team Providers Care Patient Registrar Name Role Phone Sariah Vickers Primary Care Provider [phone] Yuri Pierre PharmD Unavailable [phone] Basilio Hall MD Unavailable [phone] Ron Preciado MD Unavailable [phone] Reason for Visit * Reason Comments Med Refill Encounter Details Date Type Department Care Team (Late st Contact Info) Description 11/16/2024 Refill [facility] [address] [place] [address] Sariah Vickers ANP [address] [place] [address] Type 2 diabetes mellitus with diabetic neuropathy, with long-term current use of insulin ([facility]) Social History Tobacco Use Types Packs/Day Years [...] 01/07/2025 9:30 AM EST Clinical Support [address] [address] Azeb Hall, MARTIN [address] [place] [address] 01/11/2025 1:00 PM EST Office Visit [address] [address] Sariah Vickers ANP [address] [place] [address] 02/03/2025 11:00 AM EST Medication Management [address] [address] Yuri Pierre, PharmD [address] [place] [address] documented as of this encounter Goals Goal [...] Diagnoses Diagnosis Type 2 diabetes mellitus with diabetic neuropathy, with long-term current use of insulin (HCC) documented in this encounter Additional Health Concerns Assessment Noted Time PHQ-9 Depression Total Score: 11 025 5:30 PM EDT documented as of this encounter Care Teams Patient Registrar Relationship Specialty Start Date End Date Sariah Vickers ANP [address] [place] [address] PCP - General Family Medicine 09/23/19 Yuri Pierre PharmD [address] [place] [address] Pharmacist Internal Medicine 05/05/24 Basilio Hall MD [address] [place] [address] Cardiology 05/17/24 Ron Preciado MD [address] [place] [address] Pulmonary Disease 05/17/24 documented as of this encounter
--- OUTSIDE RECORDS SUMMARY | 2024-11-22 11:08 | XMS_ITS | Encounter Summary ---
Author Organization [employer] Address 75 [facility] 7t [place] [address] Care Team Providers Care Silver Miner Blasting Name Role Phone Sariah Vickers Primary Care Provider [phone] Yuri Pierre PharmD Unavailable [phone] Basilio Hall MD Unavailable [phone] Ron Preciado MD Unavailable [phone] Reason for Visit * Reason Onset Date Comments Referral 08/02/2024 Encounter Details Date Type Department Care Team (Late st Contact Info) Description 08/02/2024 Telephone [facility] MEDICINE [address] [place], [place] [phone] Sariah Vickers ANP [address] [place], [place] [phone] Referral Social History Tobacco Use Types Packs/Day [...] for vertigo therapy. Please contact pt at [phone]. (British Speaker) documented in this encounter Plan of Treatment Upcoming Encounters Date Type Department Care Team ([facility] st Contact Info) Description 01/07/2025 9:30 AM EST Clinical Support [facility] MEDICINE [address] [place] [address] Azeb Hall, MARTIN [address] [place] [address] 01/11/2025 1:00 PM EST Office Visit [address] [address] Sariah Vickers ANP [address] [place] [address] 02/03/2025 11:00 AM EST Medication Management [facility] [address] [place] [address] Yuri Pierre, Dileep [address] [place] [address] documented as of this encounter Goals Goal [...] as of this encounter Care Teams Silver Miner Blasting Relationship Specialty Start Date End Date Sariah Vickers ANP [address] [place] [address] PCP - General Family Medicine 09/23/19 Yuri Pierre, PharmD [address] [place] [address] Pharmacist Internal Medicine 05/05/24 Basilio Hall MD [address] [place] [address] Cardiology 05/17/24 Ron Preciado MD [address] [place] [address] Pulmonary Disease 05/17/24 documented as of this encounter
--- OUTSIDE RECORDS SUMMARY | 2024-11-22 11:08 | XMS_ITS | Encounter Summary ---
Author Organization [employer] Address 75 [facility] 7t [place] [address] Care Team Providers Care Player Services Representative Name Role Phone Sariah Vickers Primary Care Provider [phone] Yuri Pierre PharmD Unavailable [phone] Basilio Hall MD Unavailable [phone] Ron Preciado MD Unavailable [phone] Reason for Visit * Reason Onset Date Comments Med Refill Durable Medical Equipment 07/15/2023 Foam M attress/Raised Toilet Seat Encounter Details Date Type Department Care Team (Late st Contact Info) Description 07/15/2023 Refill [facility] MEDICINE 230 [place], [place] [phone] Sariah Vickers ANP 230 [place] [address] Neck pain Social History Tobacco Use Types [...] request sent via email by [facility] Chemical Processing Supervisor Arlin Baker. Please Advise. Good morning, Our [...] Upcoming Encounters Date Type Department Care Team ([facility] st Contact Info) Description 01/07/2025 9:30 AM EST Clinical Support [address] [address] Azeb Hall, RN 505 [place] [address] 01/11/2025 1:00 PM EST Office Visit [address] [address] Sariah Vickers ANP [address] [place] [address] 02/03/2025 11:00 AM EST Medication Management [address] [address] Yuri Pierre, PharmD [address] [place] [address] documented as of this encounter Goals Goal [...] documented as of this encounter Care Teams Player Services Representative Relationship Specialty Start Date End Date Sariah Vickers ANP [address] [place] [address] PCP - General Family Medicine 09/23/19 Yuri Pierre, PharmD [address] [place] [address] Pharmacist Internal Medicine 05/05/24 Basilio Hall MD 596 [place] [address] Cardiology 05/17/24 Ron Preciado MD [address] [place] [address] Pulmonary Disease 05/17/24 documented as of this encounter
--- OUTSIDE RECORDS SUMMARY | 2024-11-22 11:08 | XMS_ITS | Encounter Summary ---
Author Organization [employer] Address 75 [facility] 7t [place] [address] Care Team Providers Care Frame Maker Name Role Phone Sariah Vickers Primary Care Provider Yuri Pierre PharmD Unavailable [phone] Basilio Hall MD Unavailable [phone] Ron Preciado MD Unavailable [phone] Reason for Visit * Reason Comments Med Refill Encounter Details Date Type Department Care Team (Late st Contact Info) Description 12/27/2022 Refill [facility] MEDICINE 230 [place] [address] Sariah Vickers ANP [address] [place] [address] Neck pain Social History Tobacco Use Types [...] Description 01/07/2025 9:30 AM EST Clinical Support [address] [address] Azeb Hall RN 505 [place] [address] 01/11/2025 1:00 PM EST Office Visit [address] [address] Sariah Vickers ANP [address] [place] [address] 02/03/2025 11:00 AM EST Medication Management [address] [address] Yuri Pierre, MikeD [address] [place] [address] documented as of this encounter Goals Goal [...] Cervicalgia documented in this encounter Care Teams Frame Maker Relationship Specialty Start Date End Date Sariah Vickers ANP [address] [place] [address] PCP - General Family Medicine 09/23/19 Yuri Pierre, MikeD [address] [place], [place] [phone] Pharmacist Internal Medicine 05/05/24 Basilio Hall MD 596 [place], [place] [phone] Cardiology 05/17/24 Ron Preciado MD [address] [place] [address] Pulmonary Disease 05/17/24 documented as of this encounter
--- OUTSIDE RECORDS SUMMARY | 2024-11-22 11:08 | XMS_ITS | Encounter Summary ---
Author Organization [employer] Address 75 [facility] 7t [place] [address] Care Team Providers Care Family Resource Coordinator Name Role Phone Sariah Vickers Primary Care Provider [phone] Yuri Pierre PharmD Unavailable [phone] Basilio Hall MD Unavailable [phone] Ron Preciado MD Unavailable [phone] Reason for Visit * Reason Onset Date Comments Appointment Request 09/03/2024 Encounter Details Date Type Department Care Team (Late st Contact Info) Description 09/03/2024 Telephone [facility] MEDICINE 230 [place] [address] Sariah Vickers ANP 230 [place], [place] [phone] Appointment Request Social History Tobacco Use Types [...] when making the apt. Contact pt at [phone] documented in this encounter Plan of Treatment Upcoming Encounters Date Type Department Care Team ([facility] st Contact Info) Description 01/07/2025 9:30 AM EST Clinical Support [address] [address] Azeb Hall RN 505 [place] [address] 01/11/2025 1:00 PM EST Office Visit [address] [address] Sariah Vickers ANP [address] [place] [address] 02/03/2025 11:00 AM EST Medication Management [address] [place] [address] Yuri Pierre, PharmD 230 [place] [address] documented as of this encounter Goals Goal [...] documented as of this encounter Care Teams Family Resource Coordinator Relationship Specialty Start Date End Date Sariah Vickers ANP 230 [place] [address] PCP - General Family Medicine 09/23/19 Yuri Pierre, PharmD [address] [place] [address] Pharmacist Internal Medicine 05/05/24 Basilio Hall MD [address] [place] [address] Cardiology 05/17/24 Ron Preciado MD [address] [place] [address] Pulmonary Disease 05/17/24 documented as of this encounter
--- OUTSIDE RECORDS SUMMARY | 2024-11-22 11:08 | XMS_ITS | Encounter Summary ---
Author Organization [employer] Address 75 [facility] 7t [place] [address] Care Team Providers Care Rn Admissions Name Role Phone Sariah Vickers KAYLEE Primary Care Provider [phone] Yuri Pierre PharmD Unavailable [phone] Basilio Hall MD Unavailable [phone] Ron Preciado MD Unavailable [phone] Reason for Visit * Reason Comments Med Refill Encounter Details Date Type Department Care Team (Late st Contact Info) Description 10/04/2024 Refill [facility] [address] [place] [address] Zakia Uriostegui, BINGO MANAGER 230 [place] [address] Type 2 diabetes mellitus with hyperglycemia (CMS/HCC) [...] 01/07/2025 9:30 AM EST Clinical Support [address] [address] Azeb Hall, RN 505 [place] [address] 01/11/2025 1:00 PM EST Office Visit [facility] MEDICINE [address] [place] [address] Sariah Vickers, ANP [address] [place] [address] 02/03/2025 11:00 AM EST Medication Management [address] [address] Yuri Pierre, PharmD [address] [place] [address] documented as of this encounter Goals Goal [...] Diagnosis Type 2 diabetes mellitus with hyperglycemia (HCC) documented in this encounter Additional Health Concerns Assessment Noted Time PHQ-9 Depression Total Score: 12 024 2:58 PM EDT documented as of this encounter Care Teams Rn Admissions Relationship Specialty Start Date End Date Sariah Vickers ANP 230 [place] [address] PCP - General Family Medicine 09/23/19 Yuri Pierre PharmD 230 [place] [address] Pharmacist Internal Medicine 05/05/24 Basilio Hall MD 596 [place] [address] Cardiology 05/17/24 Ron Preciado MD [address] [place] [address] Pulmonary Disease 05/17/24 documented as of this encounter
--- OUTSIDE RECORDS SUMMARY | 2024-11-22 11:08 | XMS_ITS | Encounter Summary ---
Author Organization [employer] Address 75 [facility] 7t [place] [address] Care Team Providers Care Mica Layer Name Role Phone Sariah Vickers Primary Care Provider Yuri Pierre PharmD Unavailable [phone] Basilio Hall MD Unavailable [phone] Ron Preciado MD Unavailable [phone] Reason for Visit * Reason Comments Med Refill Encounter Details Date Type Department Care Team (Late st Contact Info) Description 02/28/2023 Refill [facility] MEDICINE 230 [place] [address] Sariah Vickers ANP 230 [place] [address] Cervicalgia Social History Tobacco Use Types Packs/Day [...] 01/07/2025 9:30 AM EST Clinical Support [address] [address] Azeb Hall RN 505 [place] [address] 01/11/2025 1:00 PM EST Office Visit [address] [address] Sariah Vickers ANP [address] [place] [address] 02/03/2025 11:00 AM EST Medication Management [address] [address] Yuri Pierre, MikeD [address] [place] [address] documented as of this encounter Goals Goal [...] Cervicalgia documented in this encounter Care Teams Mica Layer Relationship Specialty Start Date End Date Sariah Vickers ANP 230 [place] [address] PCP - General Family Medicine 09/23/19 Yuri Pierre, MikeD 230 [place], [place] [phone] Pharmacist Internal Medicine 05/05/24 Basilio Hall MD [address] [place], [place] [phone] Cardiology 05/17/24 Ron Preciado MD [address] [place] [address] Pulmonary Disease 05/17/24 documented as of this encounter
--- OUTSIDE RECORDS SUMMARY | 2024-11-22 11:08 | XMS_ITS | Encounter Summary ---
Author Organization [employer] Address 75 [facility] 7t [place] [address] Care Team Providers Care Certified Composites Technician Name Role Phone Anthony Ruiz Primary Care Provider [phone] Yuri Pierre PharmD Unavailable [phone] Basilio Hall MD Unavailable [phone] Ron Preciado MD Unavailable [phone] Encounter Details Date Type Department Care Team (Late st Contact Info) Description 09/28/2024 Orders Only [facility] MEDICINE 230 [place] [address] Anthony Ruiz ANP 230 [place] [address] Social History Tobacco Use Types Packs/Day Years [...] 01/07/2025 9:30 AM EST Clinical Support [address] [address] Azeb Hall, MARTIN 505 [place] [address] 01/11/2025 1:00 PM EST Office Visit [address] [address] Anthony Ruiz ANP [address] [place] [address] 02/03/2025 11:00 AM EST Medication Management [address] [address] Yuri Pierre, MikeD [address] [place] [address] documented as of this encounter Goals Goal [...] PM EDT Narrative 10/09/2024 1:20 PM EDT [place] [address] CT Scan Report Signed Patient: Nuvia Fay MR #: [id number] : 1960 Acct:[id number] Age/Sex: 64 / F ADM Date: 10/08/24 Loc: HO.CT Attending Dr: Ron Preciado MD Ordering Physician: Ron Preciado MD Date of Service: 10/08/24 Procedure(s): CT lung screening Accession Number(s): [id number] cc: Ron Preciado MD; ANTHONY RUIZ NP Report Number: [id number]: Total DLP = 64.00 mGy-cm CLINICAL HISTORY: [...] 10/09/24 1319 DD/ 1318 TD/TT: 10/09/24 1318 [employer]ber Mill Worker: Procedure Note Donotuseinterpreter, Image - 10/09/[address] [place] [address] [address] Scan Report Signed Patient: Nuvia Fay EMR #: [id number] : [id number]:[id number] Age/Sex: 64 / FADM Date: 10/08/24 Loc: .CT Attending Dr: Ron Preciado MD Ordering Physician: Ron Preciado MD Date of Service: 10/08/24 Procedure(s): CT lung screening Accession Number(s): [id number] cc: Ron Preciado MD; ANTHONY RUIZ NP Report Number: [id number]: Total DLP = 64.00 mGy-cm CLINICAL HISTORY: [...] 10/09/24 1319 DD/ 1318 TD/TT: 10/09/24 1318 [employer]ber Mill Worker: [facility] External Provider IMG CT PROCEDURES Edited Result - Final documented in this encounter Visit Diagnoses Not on filedocumented in this encounter Additional Health Concerns Assessment Noted Time PHQ-9 Depression Total Score: 12 024 2:58 PM EDT documented as of this encounter Care Teams Certified Composites Technician Relationship Specialty Start Date End Date Anthony Ruiz ANP 230 [place] [address] PCP - General Family Medicine 09/23/19 Yuri Pierre, PharmD 230 [place] [address] Pharmacist Internal Medicine 05/05/24 Basilio Hall MD [address] [place] [address] Cardiology 05/17/24 Ron Preciado MD [address] [place] [address] Pulmonary Disease 05/17/24 documented as of this encounter
--- OUTSIDE RECORDS SUMMARY | 2024-11-22 11:08 | XMS_ITS | Encounter Summary ---
Author Organization [employer] Address 75 [facility] 7t [place] [address] Care Team Providers Care Service Greeter Name Role Phone Sariah Vickers Primary Care Provider [phone] Yuri Pierre PharmD Unavailable [phone] Basilio Hall MD Unavailable [phone] Ron Preciado MD Unavailable [phone] Reason for Visit * Reason Onset Date Comments Med Refill 03/04/2023 Encounter Details Date Type Department Care Team (Late st Contact Info) Description 03/04/2023 Telephone [facility] MEDICINE 230 [place], [place] [phone] Sariah Vickers ANP 230 [place], [place] [phone] Med Refill Social History Tobacco Use Types [...] 50 MG tablet To be sent to: [facility] - [place], [place] - [address] [place] [address] documented in this encounter Plan of Treatment Upcoming Encounters Date Type Department Care Team (Late st Contact Info) Description 01/07/2025 9:30 AM EST Clinical Support [address] [address] Azeb Hall RN 505 [place] [address] 01/11/2025 1:00 PM EST Office Visit [address] [address] Sariah Vickers, KAYLEE [address] [place] [address] 02/03/2025 11:00 AM EST Medication Management [address] [address] Yuri Pierre, PharmD [address] [place] [address] documented as of this encounter Goals Goal Patient Goal Type Associated Problems Recent Progress Patient-Stated? Author Blood Pressure < 140/90 Blood Pressure 132/88(2024 8:49 AM EDT) No PhanisAida Cheng, PharmD Record Your Blood Sugar As Directed General No Phanis-Gambl Veronica urbinasa, PharmD Hemoglobin A1c < 7 Result Component 6.6( 1:54 PM EDT) No PhanisAida Cheng, PharmD documented as of this encounter Visit Diagnoses Not on filedocumented in this encounter Care Teams Service Greeter Relationship Specialty Start Date End Date Sariah Vickers ANP 230 [place] [address] PCP - General Family Medicine 09/23/19 Yuri Pierre PharmD 230 [place] [address] Pharmacist Internal Medicine 05/05/24 Basilio Hall MD [address] [place] [address] Cardiology 05/17/24 Ron Preciado MD [address] [place] [address] Pulmonary Disease 05/17/24 documented as of this encounter
--- OUTSIDE RECORDS SUMMARY | 2024-11-22 11:08 | XMS_ITS | Clinical Summary ---
Author Organization [facility] Address [address] [place] [address] Phone Care Team Providers Care Pressure Tank Operator Name Role Phone Sariah Vickers NP Primary Care Provider [phone] Social History Tobacco Use Types Packs/Day Years Used Date Smoking Tobacco: Never Assessed Comments Unknown Sex and Gender Information Value Date Recorded Sex Assigned at Not on file Legal Sex Female 11:21 PM EST Gender Identity Not on file Sexual Orientation Not on file Plan of Treatment Health Maintenance Due Date Last Done Comments Breast Cancer Screening 1960 Colorectal Cancer Screening: Colonoscopy 1960 Cervical Cancer Screening: P ap Smear 1981 Pneumococcal Vaccine: 50+ Ye ars (1 of 1 - PCV) 2010 Hepatitis B Vaccines (2 of 3 - 19+ 3-dose series) 08/11/2018 07/14/2018 Zoster Vaccines (2 of 2) 06/04/2019 04/09/2019 HIV Screening 01/29/2022 Hepatitis C Screening 01/29/2022 [...] age to complete this topic Care Teams Pressure Tank Operator Relationship Specialty Start Date End Date Sariah Vickers NP [address] [place] [phone] PCP - General 12/03/23
--- OUTSIDE RECORDS SUMMARY | 2024-11-22 11:08 | XMS_ITS | Encounter Summary ---
Author Organization [employer] Address 75 [facility] 7t [place] [address] Care Team Providers Care Ground Crewman Name Role Phone Sariah Vickers Primary Care Provider [phone] Yuri Pierre PharmD Unavailable [phone] Basilio Hall MD Unavailable [phone] Ron Preciado MD Unavailable [phone] Reason for Visit * Reason Comments Med Refill Encounter Details Date Type Department Care Team (Late st Contact Info) Description 07/10/2022 Refill [facility] MEDICINE 230 [place] [address] Sariah Vickers ANP 230 [place] [address] Vertigo Social History Tobacco Use Types Packs/Day [...] Description 01/07/2025 9:30 AM EST Clinical Support [address] [address] Azeb Hall, RN 505 [place] [address] 01/11/2025 1:00 PM EST Office Visit [address] [address] Sariah Vickers ANP [address] [place] [address] 02/03/2025 11:00 AM EST Medication Management [address] [address] Yuri Pierre, PharmD [address] [place] [address] documented as of this encounter Visit Diagnoses Diagnosis Vertigo Dizziness and giddiness documented in this encounter Care Teams Ground Crewman Relationship Specialty Start Date End Date Sariah Vickers ANP [address] [place] [address] PCP - General Family Medicine 09/23/19 Yuri Pierre, PharmD [address] [place] [address] Pharmacist Internal Medicine 05/05/24 Basilio Hall MD [address] [place] [address] Cardiology 05/17/24 Ron Preciado MD [address] [place] [address] Pulmonary Disease 05/17/24 documented as of this encounter
== END 2024-11-22 09:47 | disposition home or self-care (01) ==
LOC: HO.HMGAL 09:42
PROVIDERS: PCP Nurse Practitioner Primary Care; Visit Provider Registered Nurse Emergency
DX: J30.89 Other allergic rhinitis (principal)
CPT/HCPCS: 95117; 95165

== ENCOUNTER 2024-12-01 12:11 | Outpatient (AMB) | payer OTHER, SELFPAY ==
--- OUTSIDE RECORDS SUMMARY | 2024-12-01 15:28 | XMS_ITS | Data Portability ---
Author Organization [employer] [facility], [facility] Address [address] [place] [address] Care Team Providers Care Foundry Engineer Name Role Phone HIM CCA OTHER Assessment Encounter Date Assessment Date Assessment LastModified by Organization Details LastModified Time 09/23/2024 09/23/2024 Mrs. Da Silva presented for isolated episode of nausea and vomiting after taking augmentin on empty stomach. She is on augmentin and prednisone for asthma. Patient afebrile and well-appearing, no abdominal tenderness or distension per community in house counsel exam, nausea has resolved. No chest pain or shortness of breath. Blood glucose was 99 per patient's home blood glucose monitor. Patient is comfortable remaining home and appears safe to do so. Low clinical suspicion at this time for acute surgical abdomen, ACS, DKA, sepsis, or other acute pathology that would require further ED workup or hospitalization. We discussed bland diet, hydration, taking medication with food, and a short course of zofran was sent to pharmacy. Reasons to seek further care discussed and patient satisfied with care plan as above. I provided real -time medical direction via phone for this encounter, and was available for additional phone based assistance as needed. I have reviewed and agree with the Assessment and Plan as documented by the Regulatory Compliance Manager. We discussed the diagnostic uncertainty of home visits and the risk associated with this. In this case the patient and I felt this to be an acceptable and reasonable amount of risk given the benefit of avoiding an ED visit. The patient given the opportunity to ask questions. Advised if develops CP/severe SOB/turning blue/uncontrolle d n/v/d or black/bloody emesis or stool/ AMS/ syncope/ hi fever unresponsive to APAP to call 911- verbalized understanding of instruction [email or web address] Not available 09/23/2024 17:38:02 Plan of Treatment Reminders Order Date Submit Date Provider Last Modified By Organization Details Last Modified Time Details Appointments None recorded. Lab None recorded. Referral None recorded. Procedures None recorded. Surgeries None recorded. Imaging None recorded. Medication Orders ondansetron 4 mg disintegrat ing tablet 2024 025 [facility], [address] [place] [address], [id number], 09:18:37 Patient TargetsNo targets recorded. Patient InstructionsNo instructions recorded. Reason for Referral None Reported. Medical Equipment None Reported. Allergies Allergen ID Allergen Name Allergen Category Reaction Reaction Severity Criticality Documentation Date Start Date Code Code System Note Provider Name and Address Organization Details Recorded Time 83772 aspirin medicatio n Not available Not available Not available 05/29/2024 1191 RxNorm Not Available [facility] - production 13:30:18 62456 naproxen medicatio n Not available Not available [...] inhalation INHALE 1 PUFF BY MOUTH TWICE DAILY. RINSE MOUTH AFTER USING. active Not Available Not Available No t Available atorvastatin 80 mg tablet TAKE 1 TABLET BY MOUTH AT BEDTIME active Not Available Not Available No t Available acetaminophe n 325 mg tablet TAKE 1 TO 2 TABLETS BY MOUTH EVERY 6 HOURS NEEDED active Not Available Not Available No t Available prednisone 10 mg tablet TAKE 6 TABLETS ONCE DAILY FOR 2 DAYS, 5 TABLETS FOR 2 DAYS, 4 TABLETS FOR 2 DAYS 3 TABLETS FOR 2 DAYS 2 TABLETS FOR 2 DAYS 1 TABLET FOR 2 DAYS THEN 1/2 TABLET FOR 2 DAYS active Not Available Not Available No t Available doxycycline hyclate 100 mg capsule TAKE 1 CAPSULE BY MOUTH TWICE DAILY UNTIL FINISHED active Not Available Not Available No t Available ipratropium 0.5 mg-albuterol 3 mg (2.5 mg base)/3 mL nebulization soln INHALE AMPULE USING A NEBULIZER EVERY 6 HOURS NEEDED active Not Available Not Available No t Available cetirizine 10 mg tablet TAKE 1 TABLET BY MOUTH EVERY EVENING active Not Available Not Available No t Available sulfamethoxa zole 400 mg-trimethop rim 80 mg tablet TAKE 1 TABLET BY MOUTH TWICE DAILY active Not Available Not Available No t Available ketotifen 0.025 % (0.035 %) eye drops INSTILL 1 DROP AFFECTED EYE(S) TWICE DAILY active Not Available Not Available Not Available hydrocodone 5 mg-acetamino phen 325 mg tablet TAKE 1 TABLET BY MOUTH EVERY 4 TO 6 HOURS NEEDED FOR PAIN active Not Available Not Available No t Available enalapril maleate 20 mg tablet TAKE 1 TABLET BY MOUTH EVERY MORNING active Not Available Not Available No t Available senna 8.6 mg tablet TAKE 2 TABLETS BY MOUTH EVERY DAY AT BEDTIME NEEDED FOR CONSTIPATIO N active Not Available Not Available No t Available prednisone 20 mg tablet TAKE 2 TABLETS BY MOUTH ONCE DAILY UNTIL FINISHED active Not Available Not Available No t Available gabapentin 400 mg capsule TAKE 1 CAPSULE BY MOUTH AT BEDTIME active Not Available Not Available No t Available clonazepam 1 mg tablet TAKE 1 TABLET BY MOUTH EVERY DAY AND TAKE 1/2 TABLET AT BEDTIME NEEDED active Not Available Not Available No t Available sulfamethoxa zole 800 mg-trimethop rim 160 mg tablet TAKE 1 TABLET BY MOUTH TWICE DAILY FOR 7 DAYS active Not Available Not Available No t Available tramadol 50 mg tablet TAKE 1 TABLET BY MOUTH TWICE DAILY IN THE MORNING AND AT BEDTIME NEEDED FOR SEVERE PAIN active Not Available Not Available Not Available acetaminophe n 500 mg tablet TAKE 1 TABLET BY MOUTH EVERY 8 HOURS NEEDED FOR PAIN FOR UP TO 5 DAYS active Not Available Not Available [...] active Not Available Not Available Not Available Proctozone-H C 2.5 % topical cream perineal applicator APPLY 1 APPLICATORF UL RECTALLY TWICE DAILY FOR FOR HEMORRHOIDS active Not Available Not Available Not Available amlodipine 10 mg tablet TAKE 1 TABLET BY MOUTH EVERY EVENING active Not Available Not Available No t Available benzonatate 100 mg capsule TAKE 1 CAPSULE BY MOUTH THREE TIMES DAILY IN THE MORNING, AT NOON, AND AT BEDTIME NEEDED FOR COUGH FOR UP TO 7 DAYS, DO NOT BREAK, CRUSH, DISSOLVE OR CHEW active Not Available Not Available No t Available doxycycline monohydrate 100 mg capsule TAKE 1 CAPSULE BY MOUTH TWICE DAILY FOR 8 DAYS active Not Available Not Available No t Available cephalexin 500 mg capsule TAKE 1 CAPSULE BY MOUTH FOUR TIMES DAILY FOR 8 DAYS active Not Available Not Available N ot Available buspirone 10 mg tablet TAKE 1 [...] Not Available Not Available No t Available docusate sodium 100 mg capsule TAKE 1 CAPSULE BY MOUTH TWICE DAILY IN THE MORNING AND IN THE EVENING active Not Available Not Available No t Available omeprazole 20 mg capsule,martha yed release TAKE 1 CAPSULE BY MOUTH TWICE DAILY [...] TAKE 1 TABLET BY MOUTH ONCE DAILY UNTIL FINISHED active Not Available Not Available No t Available zolpidem 10 mg tablet TAKE 1 TABLET BY MOUTH AT BEDTIME NEEDED active Not Available Not Available No t Available methylpredni solone 4 mg tablets in a dose pack TAKE DIRECTED active Not Available Not Available No t Available ondansetron 4 mg disintegrati ng tablet DISSOLVE 1 TABLET EVERY 8 HOURS NEEDED FOR NAUSEA AND VOMITING active Not Available Not Available No t [...] active Not Available Not Available Not Available Denta 5000 Plus 1.1 % cream APPLY TO TEETH TWICE DAILY DIRECTED active Not Available Not Available No t Available insulin lispro (U-100) 100 unit/mL subcutaneous pen INJECT 4-6 UNITS NEEDED IF LA AZUCA ESTA CHINO DESPUES DE EMERITA PREDNISONE active Not Available Not Available N ot Available Alcohol Prep Pads USE DIRECTED EVERY DAY active Not Available Not Available No t Available Spiriva with HandiHaler 18 mcg and inhalation capsules USE 1 CAPSULE FOR INHALATION ONCE A DAY DO NOT SWALLOW CAPSULE active Not Available Not Available No t Available glycerin (adult) rectal suppository INSERT 1 SUPPOSITORY RECTALLY DAILY NEEDED FOR CONSTIPATIO N active Not Available Not Available No t Available olopatadine 0.2 % eye drops INSTILL 1 DROP IN EACH EYE ONCE DAILY active Not Available Not Available N ot Available Glutose-15 40 % oral gel TAKE 15 GRAM BY MOUTH DIRECTED FOR LOW BLOOD SUGAR active Not Available Not Available Not Available peg 3350-electro lytes 236 gram-22.74 gram-6.74 gram-5.86 gram solution DRINK 240 ML BY MOUTH EVERY 10 MINUTES UNTIL CLEAR. DO NOT EXCEED 2000 ML (1/2 BOTTLE) active Not Available Not Available No t Available FreeStyle Lite Strips USE DIRECTED TO TEST BLOOD SUGAR FOUR TIMES DAILY active Not Available Not Available Not Available diclofenac 1 % topical gel APPLY 2 GRAMS TOPICALLY TO AFFECTED AREA(S) ONCE DAILY NEEDED FOR PAIN active Not Available Not Available No t Available [facility] 10 billion cell-200 mg sprinkle capsule TAKE 1 CAPSULE BY MOUTH DAILY active Not Available Not Available Not Available Certavite-An tioxidant 18 mg-400 mcg tablet TAKE 1 TABLET BY MOUTH EVERY MORNING active Not Available Not Available No t Available Combivent Respimat 20 mcg-100 mcg/actuatio n solution for inhalation INHALE 1 PUFF BY MOUTH EVERY 6 HOURS, RINSE MOUTH AFTER USING. active Not Available Not Available No t Available TRUEplus Lancets 33 gauge USE DIRECTED TO TEST BLOOD SUGAR FOUR TIMES DAILY active Not Available Not Available Not Available guaifenesin ER 600 mg tablet, extended release 12 hr TAKE 1 TABLET BY MOUTH TWICE DAILY IN THE MORNING AND AT BEDTIME NEEDED FOR COUGH OR FOR CONGESTION DO NOT BREAK, CRUSH, DISSOLVE OR CHEW active Not Available Not Available No t Available Trulicity 0.75 mg/0.5 mL subcutaneous pen injector INJECT ONE PEN (=0.75MG) SUBCUTANEOU SLY ONCE A WEEK DIRECTED active Not Available Not Available No t Available TRUEplus Glucose 3.75 gram chewable tablet CHEW 4 TABLETS NEEDED FOR low blood sugar (LESS THAN 70mg/dL) active Not Available Not Available No t Available Trulance 3 mg tablet TAKE 1 TABLET BY MOUTH AT BEDTIME active Not Available Not Available No t Available Fiasp FlexTouch U-100 Insulin 100 unit/mL (3 mL) subcutaneous pen INJECT 2 UNITS SUBCUTANEOU SLY THREE TIMES DAILY BEFORE MEALS active Not Available Not Available No t Available Baqsimi 3 mg/actuation nasal spray USE 1 SPRAY (3MG) IN ONE NOSTRIL FOR A PATIENT WITH SEVERE HYPOGLYCEMI A WHO IS NOT RESPONSIVE AND UNABLE SELF-TREAT WITH GLUCOSE. AFTERWARDS TURN ON SIDE. MAY REPEAT IN 15MINUTES IF PATIENT DOES NOT RESPOND. active Not Available Not Available No t Available FreeStyle Jalil 2 Sensor kit USE 1 sensor EVERY 14 DAYS active Not Available Not Available No t Available FreeStyle Jalil 2 [place] USE DIRECTED TO TEST BLOOD SUGAR EVERY [...] Not Available No t Available FreeStyle Jalil 3 [place] USE DIRECTED TO TEST BLOOD SUGAR active Not Available Not Available No t Available FreeStyle Jalil 3 Plus Sensor device USE DIRECTED TO TEST BLOOD SUGAR CHANGE EVERY 15 DAYS active Not Available Not Available No t Available Lorna Pen Needle 32 gauge x 5/32 [...] /min 98 [degF] 126/83 mm[Hg] Not Available [employer] 5 16:18:21 Date Recorded Body temperature Oxygen saturation Oxygen saturation in Arterial blood by Pulse oximetry Heart rate Body weight Respiratory rate Body height Systolic And Diastolic Provider Name and Address Organization Details Last Updated DateTime 5 97.6 [degF] 95 % 95 % 82 /min 53533.8 88 g 16 /min 157.48 cm 122/84 mm[Hg] Not Available [employer] 17:32:44 Social History None recorded. Functional Status None recorded. Mental Status None recorded. Family History Nothing Reported. Medical History No medical history recorded. Gynecological HistoryNo gynecological history recorded. Obstetrics History GPAL:G 0 P 0 0 0 0 Past Encounters Encounter ID Performer Location Encounter Start Date Encounter Closed Date Diagnosis/Indication Diagnosis SNOMED-CT Code Diagnosis ICD10 Code Diagnosis IMO Codes Diagnosis Note [id number] [facility] [address] [place] [phone] 05/29/2024 16:18:16 05/30/2024 23:53:07 Wound finding 273290404 Z51.89 [id number] Evaluation in the field was performed by my in house counsel colleague, as noted above, I provided real-time [...] shortness of breath, cough, chest pain, fever. [id number] MORGAN JAY MD [facility] Medical [address] [phone] 09/23/2024 17:32:41 09/23/2024 22:05:40 Nausea and vomiting [id number] R11.2 [id number] Health Concerns Section Related Observation LastModified by Organization Detai ls LastModified Time None Recorded Concern Status LastModified by Organization Details LastModified Time None Recorded Advance Directives Directive None Recorded Payers Insurance Date Sequence Insurance Name Policy Number Policy Laws Covered Member ID Laws Member ID Guarantor Name 09/23/2024 1 [facility] - DOS ON OR AFTER 2022 - DUAL ELIGIBLE - USP OPTIONS AND ONE CARE (MEDICARE REPLACEMENT/ADV ANTAGE - HMO) Nuvia Da Silva [id number] Nuvia E Avinash Notes Date Note Type Note Provider Name and Address Organization Details Recorded Time 05/29/2024 text/html CRC Nurse Triage Notes (Tania Kan): Reason For Request: wound care after surgery Chief Complaints: Wound Care PMH: Diabetes Mellitus Type 2, Hyperlipidemia, Hypertension, Kidney Stones, Hysterectomy, Hypothyroidism, Asthma PMH Reviewed at 05/29/2024: Allergies Reviewed at 05/29/2024 Comments: Referral taken via [facility], patient calling in to place a referral. [...] evaluated and possible help with wound care. ...................... ...................... ...................... ...................... ...................... ...................... ......... Regulatory Compliance Manager Note From Albert Murphy: Arrived to find patient ambulating in her apartment. Patient AOX4, GCS 15, skin pink warm and dry. Patient Uzbek speaking only. [employer] Delivery [employer] line used. Patient had hernia surgery on and is wondering if the steri strips are suppose to remain or if she needs to remove them. Educated patient that they stay and will fall off on their own. VS as noted. [facility] came on and was able to interact with patient. MD answered all questions for pt. Patient reassured. Red flags went over with pt. Patient denies any cp, sob, fevers. Incision looks clean and intact. ...................... ...................... ...................... ...................... ...................... ...................... ......... [facility] Consulted: Kathy Gonzalez ...................... ...................... ...................... ...................... ...................... ...................... ......... Disposition: Fulfilled Kathy Gonzalez MD [address] [place] [address],[address], [place], [phone] [employer] 05/29/2024 16:25:31 09/23/2024 text/html ROS as noted in the [facility] CRC Nurse Triage Notes (Swapna Russo): Reason For Request: PT reporting having asthma>noting her PCP gave her prednisone and antibiotics>recently vomited at 1:49pm est>tightness in her chest>weakness>is unsure if the antibiotic she took was too strong; she did not eat anything before taking>pt is on ozempic which affects her appetite>108/94 finger readingAllergies to Meds: AspirinPMH: Asthma>diabetes> Patient Reports: Cough, fever greater than 2 days ; History of asthma, increased use of inhaler; COVID Exposure; Sputum increase ; Cough; Pain with inspiration Denies: Increased work of breathing/labored with or without fever Unable to speak in full sentences without distress Discoloration of skin -cyanosis Needs to sleep sitting up, can t catch breath Shortness of breath in setting of confusion Lower extremity swelling COPD Shortness of breath with exertion Chief Complaints: Nausea / Vomiting, Weakness PMH: Diabetes Mellitus Type 2, Hyperlipidemia, Hypertension, Kidney Stones, Hysterectomy, Hypothyroidism, Asthma PMH Reviewed at 09/23/2024 Allergies Reviewed at 09/23/2024: Comments: 64 y.o female c/o chest tightness from [...] until assessment. POC glucose was 119. Primarily Uzbek Speaking. Referral for GI upset, chest congestion/cough/weakn ess. Member aware. I provided information on the mobile health provider response time and advised the patient and/or caregiver to monitor reported signs and symptoms. I discussed the warning signs of when to seek emergency care. ...................... ...................... ...................... ...................... ...................... ...................... ......... Regulatory Compliance Manager Note From Sebastien Bliss: instED visit for female pt with complaint of vomiting. Visit was completed with foreign language interpreter by phone. Pt reports single episode of [...] faint bilateral expiratory wheeze. Pt speaking full sentences and not endorsing any shortness of breath. Consulted with [facility] Dr. Jay who prescribed some zofran sent to pt's pharmacy. Red flags relayed by Dr. Jay. Pt education provided. ...................... ...................... ...................... ...................... ...................... ...................... ......... [facility] Consulted: Morgan Jay ...................... ...................... ...................... ...................... ...................... ...................... ......... Disposition: Fulfilled MORGAN JAY MD [address] [facility],[address], [place], [phone], [employer] 09/23/2024 20:39:32 OBGyn Episode No OBEpisode recorded.
--- OUTSIDE RECORDS SUMMARY | 2024-12-01 15:28 | XMS_ITS | Clinical Summary ---
Author Organization [facility] Address [address] [place] [address] Phone Care Team Providers Care Plug Wirer Name Role Phone Sariah Vickers NP Primary Care Provider [phone] Social History Tobacco Use Types Packs/Day Years [...] age to complete this topic Care Teams Plug Wirer Relationship Specialty Start Date End Date Sariah Vickers NP [address] [place] [phone] PCP - General 12/03/23
== END 2024-12-01 12:37 | disposition home or self-care (01) ==
LOC: HO.HMGAL 12:11
PROVIDERS: PCP Nurse Practitioner Primary Care; Visit Provider Registered Nurse Emergency
DX: J30.89 Other allergic rhinitis (principal)
CPT/HCPCS: 95117; 95165

== ENCOUNTER 2024-12-06 11:46 | Outpatient (AMB) | payer OTHER, SELFPAY | END 2024-12-06 11:49 | disposition home or self-care (01) | LOC: HO.HMGAL 11:46 | PROVIDERS: PCP Nurse Practitioner Primary Care; Visit Provider Registered Nurse Emergency | DX: J30.89 Other allergic rhinitis (principal) | CPT/HCPCS: 95117; 95165 ==

== ENCOUNTER 2024-12-08 13:56 | Emergency (ER) | payer OTHER, SELFPAY ==
--- NOTE | ~2024-12-08 | XR_ITS ---
EXAMINATION: XR CHEST 2 VIEWS HISTORY: chest pain COMPARISON: Comparison is made with the prior examination dated 07/27/2024. FINDINGS: PA and lateral views of the chest are submitted. There is scarring at the left lung base. The lungs are otherwise clear. There is no pleural effusion, pneumothorax, or pulmonary vascular congestion. The heart is normal in size. The aorta is tortuous. The bones are intact. XR/XR chest 2V IMPRESSION: No acute cardiopulmonary abnormality. Electronically signed by: Kelvin Eldridge MD 12/08/2024 02:31 PM EDT
--- NOTE | 2024-12-08 13:58 | ECG_ITS ---
Test Reason : cp Blood Pressure : */* mmHG Vent. Rate : 92 BPM Atrial Rate : 92 BPM P-R Int : 214 ms QRS Dur : 104 ms QT Int : 380 ms P-R-T Axes : 65 -52 45 degrees QTcB Int : 469 ms Sinus rhythm with 1st degree A-V block Left anterior fascicular block Minimal voltage criteria for LVH, may be normal variant ( Bala product ) Abnormal ECG When compared with ECG of 27-Jul-2024 13:40, No significant change was found Referred By: Rosangela Ventura Electronically Signed By: BEHZAD LOUIE MD
[2024-12-08 14:00] VITALS: BP 143/78; PULSE 95; RESP 20; TEMP 37.2; O2SAT 94; BMI 40.0
--- NOTE | 2024-12-08 14:00 | ED.GENADULT ---
HPI - General Adult General Chief complaint: Chest Pain Stated complaint: CP Related Data Home Medications ?Medication ?Instructions ?Recorded ?Confirmed potassium chloride 20 mEq 20 meq PO BID 11/20/19 06/08/24 tablet,extended release(part/cryst) zolpidem 10 mg tablet 10 mg PO BEDTIME PRN Insomnia 11/20/19 06/08/24 clonazepam 1 mg tablet (Klonopin) 1 mg PO DAILY 03/08/20 06/08/24 montelukast 10 mg tablet 10 mg PO BEDTIME 03/08/20 06/08/24 multivitamin-ferrous 1 tab PO DAILY 07/06/21 06/08/24 fumarate-folic acid 18 mg-400 mcg tablet (Certavite-Antioxidant) tramadol 50 mg tablet 50 mg PO Q12H PRN Pain 01/31/22 06/08/24 acetaminophen 325 mg tablet 650 mg PO Q6H PRN pain 06/11/22 06/08/24 amlodipine 10 mg tablet 10 mg PO BEDTIME 07/09/23 06/08/24 cetirizine 10 mg tablet 10 mg PO QPM 07/09/23 06/08/24 enalapril maleate 20 mg tablet 20 mg PO DAILY 07/09/23 06/08/24 insulin lispro 100 unit/mL 4 unit subcut TID PRN Hyperglycemia 12/18/23 06/08/24 subcutaneous pen (Humalog KwikPen (U-100) Insulin) meclizine 25 mg tablet 25 mg PO TID PRN Dizziness 12/18/23 06/08/24 clonazepam 1 mg tablet 0.5 mg PO BEDTIME PRN Sleep 03/21/24 06/08/24 fluticasone propionate 50 2 spray intranasal QAM 03/21/24 06/08/24 mcg/actuation nasal spray,suspension ipratropium 0.5 mg-albuterol 3 mg 3 ml inhalation Q6H PRN Shortness 03/21/24 06/08/24 (2.5 mg base)/3 mL nebulization Of Breath Or Wheezing soln lidocaine 5 % topical patch 1 patch topical DAILY PRN Pain 03/21/24 06/08/24 risperidone 0.5 mg tablet 0.5 mg PO BID 03/21/24 06/08/24 flash glucose scanning reader #1 ea 06/15/24 (FreeStyle Jalil 2 Holland) fluticasone 250 mcg-salmeterol 50 1 ea inhalation BID 06/15/24 mcg/dose blistr powdr for inhalation buspirone 15 mg tablet 15 mg PO TID 10/12/24 ketotifen fumarate 0.025 % (0.035 1 drp ophthalmic (eye) BID 10/12/24 %) eye drops Previous Rx's ?Medication ?Instructions ?Recorded leg brace (Knee Support Brace) #2 ea 03/08/20 blood-glucose meter (FreeStyle #1 ea 02/28/22 Flash System kit) pen needle, diabetic 32 gauge x ##100 10/01/22 (UltiCare Pen Needle) gabapentin 400 mg capsule 400 mg PO BEDTIME #30 caps 01/01/23 omalizumab 150 mg subcutaneous 300 mg subcut Q2W 28 days #4 ea 05/19/23 solution blood sugar diagnostic (FreeStyle #100 strips 03/19/24 Lite Strips) lancets 33 gauge (TRUEplus Lancets) #100 ea 03/19/24 blood-glucose sensor (FreeStyle #2 ea 04/02/24 Jalil 3 Plus Sensor device) blood-glucose,water systems designer,cont #1 ea 04/02/24 (FreeStyle Jalil 3 Holland) semaglutide 0.25 mg or 0.5 mg (2 0.5 mg (0.736 mL) subcut SA #3 mL 04/06/24 mg/3 mL) subcutaneous pen injector (OzTicket Mavrixic) Held on 11/12/24. Instructions: Doctor's Order Lactobacillus rhamnosus GG 10 1 cap PO DAILY #30 caps 06/15/24 billion cell capsule (Culturelle) albuterol sulfate 90 mcg/actuation 2 puff inhalation Q4-6H PRN for 06/15/24 aerosol inhaler (Ventolin HFA) wheezing #18 grams ipratropium 20 mcg-albuterol 100 1 puff inhalation Q6H #4 grams 07/29/24 mcg/actuation mist for inhalation (Combivent Respimat) peg 3350-electrolytes 236 240 ml PO Q10M 1 day #4,000 mL 08/12/24 gram-22.74 gram-6.74 gram-5.86 gram solution (Golytely) tiotropium bromide 18 mcg capsule 1 cap inhalation DAILY #30 caps 08/26/24 with inhalation device (Spiriva with HandiHaler) docusate sodium 100 mg capsule 100 mg PO BID #60 caps 10/12/24 (Stool Softener) metoclopramide HCl 5 mg tablet 5 mg PO TID #90 tabs 10/12/24 sennosides 8.6 mg tablet (senna) 17.2 mg (2 x 8.6 mg) PO BEDTIME 10/12/24 for constipation #60 tabs levothyroxine 88 mcg tablet 88 mcg PO DAILY #30 tabs 11/12/24 (Levoxyl) omeprazole 20 mg capsule,delayed 20 mg PO BID #60 caps 11/12/24 release plecanatide 3 mg tablet (Trulance) 3 mg PO BEDTIME #30 tabs 11/12/24 hydrocortisone 2.5 % topical cream 1 ea FL BID #30 grams 11/24/24 with perineal applicator (Proctozone-HC) Allergies Allergy/AdvReac Type Severity Reaction Status Date / Time Fish Containing Products Allergy Intermediate Swelling Verified 12/08/24 14:02 vancomycin Allergy Intermediate Rash Verified 12/08/24 14:02 aspirin (Aspirin) Allergy Mild ITCHY Verified 12/08/24 14:02 THROAT azithromycin Allergy Unknown Unknown Verified 12/08/24 14:02 naproxen Allergy Unknown Unknown Verified 12/08/24 14:02 simvastatin Allergy Unknown Unknown Verified 12/08/24 14:02 onion (ONION) AdvReac Mild RED FACE Verified 12/08/24 14:02 [facility] Past Medical History Medical History Uncontrolled type 2 diabetes mellitus with hyperglycemia, with long-term current use of insulin Severe persistent asthma NIDDY (non-insulin dependent diabetes mellitus in young) COPD (chronic obstructive pulmonary disease) Cellulitis of labia Pulmonary hypertension, pre-operative cardiovascular examination Arthritis Thyroid disease Bilateral renal cysts Right bundle branch block Dental calculus Depression Varicose veins of left lower extremity Ectatic aorta Paresthesia Paresis of one side of face Neck pain Insomnia disorder, with non-sleep disorder mental comorbidity Increased immunoglobulin Constipation Aneurysm of left internal carotid artery Abnormal ultrasound of kidney Type 2 diabetes mellitus History of kidney stones Abnormal finding on ultrasound Tear of medial meniscus of left knee Leg pain Kidney stone on left side MOCK (dyspnea on exertion) Patellofemoral arthritis of left knee Trochanteric bursitis of right hip COVID-19 Carpal tunnel syndrome of right wrist Renal calculi UTI (urinary tract infection) Allergic rhinitis Anxiety and depression Fibromyalgia HTN (hypertension) PTSD (post-traumatic stress disorder) Preop pulmonary/respiratory exam Vertigo Diabetes Asthma Chest pain Tubular adenoma of colon Vulvovaginitis Acute asthma exacerbation Candidiasis of mouth and esophagus Bronchitis Spondylosis of cervical region without myelopathy or radiculopathy Bronchitis COPD exacerbation Yeast infection Papanicolaou smear for cervical cancer screening Bilateral hand pain Bilateral knee pain Low vitamin D level Dry mouth Environmental allergies Non-toxic multinodular goiter Hypothyroidism Type 2 diabetes mellitus with hyperglycemia DVT (deep venous thrombosis) Menopausal state Cocaine abuse Surgical History Encounter for postoperative wound check Status post umbilical hernia repair, follow-up exam Carbuncle and furuncle of buttock Carbuncle of abdominal wall Umbilical hernia Umbilical hernia Hx of carpal tunnel repair History of esophagogastroduodenoscopy (EGD) H/O colonoscopy with polypectomy History of selective injection of anesthetic agent around lumbar nerve root Hx of right breast biopsy History of hysterectomy History of lithotripsy Family History Family History Father No problems noted. 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 Full HPI, ROS, assessment and treatment plan per primary provider in the Main ED. Hx: 64 yo F here for eval of chest tightness/ burning, nasal congestion, cough x3 days. Seen at clinic, prescribed prednisone without improvement. Also taking tramadol without improvement. Plan: Labs, EKG, chest x-ray, viral swabs Reevaluation(s) Reevaluation #1: Patient left the emergency department before myself or any of the other clinicians could review or explain physical exam findings, test results, need or lack there of for additional testing, treatment options, or a treatment plan. Medical Decision Making Lab Data 12/08/24 14:09 12/08/24 14:09 Labs: Lab Results 12/08/24 Range/Units 14:09 WBC 7.6 (4.8-10.8) X10*3/uL RBC 4.67 (4.20-5.50) X10*6/uL Hgb 14.7 (12.0-16.0) g/dl Hct 44.2 (37.0-47.0) % MCV 94.6 (80.0-98.0) fL MCH 31.5 (27.0-33.0) pg MCHC 33.3 (31.0-35.0) g/dl RDW 12.9 (11.0-16.0) % Plt Count 268 (160-400) X10*3/uL MPV 9.2 L (9.4-12.3) fL Immature Gran % (Auto) 0.3 (0.0-0.4) % Neut % (Auto) 82.1 H (45-73) % Lymph % (Auto) 16.1 L (20-40) % Camas % (Auto) 0.8 L (2-11) % Eos % (Auto) 0.3 (0-4) % Baso % (Auto) 0.4 (0-2) % Lymph # (Auto) 1.2 (1.2-4.9) X10*3/uL [place] # (Auto) 0.1 (0.1-1.2) X10*3/uL Eos # (Auto) 0.0 (0.0-0.4) X10*3/uL Baso # (Auto) 0.0 (0.0-0.2) X10*3/uL Abs Immat Gran (auto) 0.02 (0.00-0.03) X10*3/uL Absolute Neuts (auto) 6.2 (2.0-8.3) x10*3/uL Absolute Nucleated RBC 0.000 (0.0-0.012) X10*3/uL Nucleated RBC % (auto) 0.0 (0.0-0.2) /100WBC Sodium 141 (135-145) mmol/L Potassium 3.7 (3.3-5.1) mmol/L Chloride 109 H (96-108) mmol/L Carbon Dioxide 25 (22-29) mmol/L Anion Gap 11 L (12-20) BUN 13 (9-16) mg/dL Creatinine 0.90 (0.5-1.4) mg/dL Estim Creat Clear Calc 64.2 Estimated GFR > 60 Random Glucose 214 H (60-115) mg/dL Calcium 9.8 D (8.4-10.2) mg/dL Magnesium 2.1 (1.6-2.6) mg/dL Total Bilirubin 0.3 (0.0-1.0) mg/dL AST 28 (5-31) U/L ALT 16 (0-31) U/L Alkaline Phosphatase 101 (39-117) U/L Troponin I High Sens < 2.7 (<3.5-17.0) ng/L Total Protein 7.4 (6.5-8.0) g/dL Albumin 4.2 (3.5-5.0) g/dL COVID-19 (DONALD) Negative (Negative) COVID-19 Clin Com See Note Influenza Type A (MAGDALENE) Negative (Negative) Influenza Type B (MAGDALENE) Negative (Negative) Influenza A & B Note See Note Discharge Plan Discharge Clinical Impression: Chest pain Patient Disposition: Left W/O Completing Treatment Prescriptions: No Action (DME) blood-glucose meter [SepSensor Flash System] Kit See Rx Instructions .Route Qty: 1 0RF Rx Instructions: As directed (DME) pen needle, diabetic [UltiCare Pen Needle] 32 gauge x 5/32 needle See Rx Instructions .ROUTE .COMPLEX Qty: 100 5RF Dose Instruction: USE FOUR TIMES DAILY Rx Instructions: USE FOUR TIMES DAILY gabapentin 400 mg capsule 400 mg PO BEDTIME Qty: 30 4RF omalizumab 150 mg recon soln 300 mg subcut Q2W 28 Days Qty: 4 11RF Rx Instructions: requires multiple injection sites; do not exceed 150 mg per injection site (DME) FreeStyle Lite Strips Strip See Rx Instructions .ROUTE .COMPLEX Qty: 100 5RF Dose Instruction: TEST BLOOD SUGAR FOUR TIMES DAILY Rx Instructions: TEST BLOOD SUGAR FOUR TIMES DAILY (DME) lancets [TRUEplus Lancets] 33 gauge misc See Rx Instructions .ROUTE .COMPLEX Qty: 100 5RF Dose Instruction: TEST BLOOD SUGAR FOUR TIMES DAILY Rx Instructions: TEST BLOOD SUGAR FOUR TIMES DAILY (DME) FreeStyle Jalil 3 Holland Misc See Rx Instructions .MEDSUPPLY Qty: 1 0RF Rx Instructions: Use daily As directed to monitor blood glucose (DME) FreeStyle Ajlil 3 Plus Sensor Device See Rx Instructions .MEDSUPPLY Qty: 2 5RF Rx Instructions: Use daily As directed to monitor glucose Ozempic 0.25 mg or 0.5 mg (2 mg/3 mL) pen injector 0.5 mg subcut SA Qty: 3 4RF Patient Comments: patient takes every Friday albuterol sulfate [Ventolin HFA] 90 mcg/actuation HFA aerosol inhaler 2 puff inhalation Q4-6H PRN (Reason: for wheezing) Qty: 18 6RF Combivent Respimat 20-100 mcg/actuation mist 1 puff inhalation Q6H Qty: 4 6RF peg 3350-electrolytes [Golytely] 236-22.74-6.74 -5.86 gram recon soln 240 ml PO Q10M 1 Days Qty: 4000 0RF Rx Instructions: until fecal effluent is clear; do not exceed a total volume of 2,000 mL tiotropium bromide [Spiriva with HandiHaler] 18 mcg capsule, w/inhalation device 1 cap inhalation DAILY Qty: 30 6RF hydrocortisone [Proctozone-HC] 2.5 % cream with perineal applicator 1 ea FL BID Qty: 30 6RF Certavite-Antioxidant 18-400 mg-mcg Tablet 1 tab PO DAILY cetirizine 10 mg tablet 10 mg PO QPM enalapril maleate 20 mg tablet 20 mg PO DAILY amlodipine 10 mg tablet 10 mg PO BEDTIME ipratropium-albuterol 0.5 mg-3 mg(2.5 mg base)/3 mL solution for nebulization 3 ml inhalation Q6H PRN (Reason: Shortness Of Breath Or Wheezing) clonazepam 1 mg tablet 0.5 mg PO BEDTIME PRN (Reason: Sleep) fluticasone propionate 50 mcg/actuation spray,suspension 2 spray intranasal QAM risperidone 0.5 mg tablet 0.5 mg PO BID lidocaine 5 % adhesive patch,medicated 1 patch topical DAILY PRN (Reason: Pain) Rx Instructions: leave on most painful area for up to 12 hrs montelukast 10 mg tablet 10 mg PO BEDTIME clonazepam [Klonopin] 1 mg tablet 1 mg PO DAILY Rx Instructions: administer 30 minutes before bedtime (DME) Knee Support Brace Misc See Rx Instructions .ROUTE .MEDSUPPLY Qty: 2 0RF Rx Instructions: As directed zolpidem 10 mg tablet 10 mg PO BEDTIME PRN (Reason: Insomnia) potassium chloride 20 mEq tablet,ER particles/crystals 20 meq PO BID acetaminophen 325 mg tablet 650 mg PO Q6H PRN (Reason: pain) tramadol 50 mg tablet 50 mg PO Q12H PRN (Reason: Pain) insulin lispro [Humalog KwikPen Insulin] 100 unit/mL insulin pen 4 unit subcut TID PRN (Reason: Hyperglycemia) Rx Instructions: use as directed with meals meclizine 25 mg tablet 25 mg PO TID PRN (Reason: Dizziness) (DME) FreeStyle Jalil 2 [place] [facility] [place] See Rx Instructions .ROUTE .MEDSUPPLY Qty: 1 Rx Instructions: As directed fluticasone propion-salmeterol 250-50 mcg/dose blister with device 1 ea inhalation BID Culturelle 10 billion cell capsule 1 cap PO DAILY Qty: 30 12RF ketotifen fumarate 0.025 % (0.035 %) drops 1 drp ophthalmic (eye) BID buspirone 15 mg tablet 15 mg PO TID docusate sodium [Stool Softener] 100 mg capsule 100 mg PO BID Qty: 60 6RF metoclopramide HCl 5 mg tablet 5 mg PO TID Qty: 90 6RF sennosides [senna] 8.6 mg tablet 17.2 mg PO BEDTIME Qty: 60 6RF levothyroxine [Levoxyl] 88 mcg tablet 88 mcg PO DAILY Qty: 30 6RF Rx Instructions: PLEASE DO NOT PUT INTO PILL PACK! MUST BE ISOLATED AND TAKEN 1 HOUR BEFORE OTHER MEDICINES. omeprazole 20 mg capsule,delayed release(DR/EC) 20 mg PO BID Qty: 60 6RF Trulance 3 mg tablet 3 mg PO BEDTIME Qty: 30 12RF Discharge Date/Time: 12/08/24 19:30
[2024-12-08 14:15] LABS: MANUAL DIFF FLAG NO
[2024-12-08 14:17] LABS: Hematocrit 44.2 % (37.0-47.0); Hemoglobin 14.7 g/dl (12.0-16.0); Imm Gran Abs Auto 0.02 X10*3/uL (0.00-0.03); Imm Gran Pct Auto 0.3 % (0.0-0.4); Lymphocytes Absolute Auto 1.2 X10*3/uL (1.2-4.9); Mean Corpuscular HGB Conc 33.3 g/dl (31.0-35.0); Mean Corpuscular Hemoglobin 31.5 pg (27.0-33.0); Mean Corpuscular Volume 94.6 fL (80.0-98.0); NRBC Abs Auto 0.000 X10*3/uL (0.0-0.012); NRBC Pct Auto 0.0 /100WBC (0.0-0.2); Platelet Count 268 X10*3/uL (160-400); Red Blood Count 4.67 X10*6/uL (4.20-5.50); White Blood Count 7.6 X10*3/uL (4.8-10.8)
[2024-12-08 14:32] LABS: Alanine Aminotransferase 16 U/L (0-31); Albumin Level 4.2 g/dL (3.5-5.0); Alkaline Phosphatase 101 U/L (39-117); Anion Gap 11 (12-20); Aspartate Amino Transferase 28 U/L (5-31); Blood Urea Nitrogen 13 mg/dL (9-16); Calcium 9.8 mg/dL (8.4-10.2); Carbon Dioxide 25 mmol/L (22-29); Chloride 109 mmol/L (96-108); Creatinine Clr Calc Pharmacy 64.2; Estimated Glomerular Filt Rate > 60; Magnesium 2.1 mg/dL (1.6-2.6); Potassium 3.7 mmol/L (3.3-5.1); Sodium 141 mmol/L (135-145); Total Protein 7.4 g/dL (6.5-8.0)
[2024-12-08 14:36] LABS: COVID-19 Test Negative (Negative); IDNOW Serial# 55D5AD1C
[2024-12-08 14:37] LABS: IDNOW Serial# 58CA691E; Influenza B2 Negative (Negative); Troponin-I High Sensitivity < 2.7 ng/L (<3.5-17.0)
--- NOTE | 2024-12-08 19:28 | PC.NURSE ---
pt called 2x for bed, no answer. LWCT [id number]
--- OUTSIDE RECORDS SUMMARY | 2024-12-08 22:27 | XMS_ITS | Clinical Summary ---
Author Organization [address] [facility] Address [address] [place] [address] Phone Care Team Providers Care Bead Wire Taper Name Role Phone Sariah Vickers NP Primary Care Provider [phone] Social History Tobacco Use Types Packs/Day Years [...] age to complete this topic Care Teams Bead Wire Taper Relationship Specialty Start Date End Date Sariah Vickers NP [address] [place] [phone] PCP - General 12/03/23
--- OUTSIDE RECORDS SUMMARY | 2024-12-08 22:28 | XMS_ITS | Data Portability ---
Author Organization [facility] Address [address] [place] [address] Care Team Providers Care Regulatory Services Consultant Name Role Phone HIM CCA OTHER Assessment Encounter Date Assessment Date Assessment LastModified by Organization Details LastModified Time 09/23/2024 09/23/2024 Mrs. Da Silva presented for isolated episode of nausea and vomiting after taking augmentin on empty stomach. She is on augmentin and prednisone for asthma. Patient afebrile and well-appearing, no abdominal tenderness or distension per community associate product integrity engineer exam, nausea has resolved. No chest pain [...] Assessment and Plan as documented by the Infection Control Nurse. We discussed the diagnostic uncertainty of home [...] 4 mg disintegrat ing tablet 2024 025 [facility], [address] [place] [address], [phone], 09:18:37 Patient TargetsNo targets recorded. Patient InstructionsNo instructions recorded. Reason for Referral None Reported. Medical Equipment None Reported. Allergies Allergen ID Allergen Name Allergen Category Reaction Reaction Severity Criticality Documentation Date Start Date Code Code System Note Provider Name and Address Organization Details Recorded Time 57911 aspirin medicatio n Not available Not available Not available 05/29/2024 1191 RxNorm Not Available [facility] - production 13:30:18 71704 naproxen medicatio n Not available Not available [...] Not Available Not Available No t Available [facility] 10 billion cell-200 [...] Available No t Available FreeStyle Jalil 2 Merced USE DIRECTED TO TEST BLOOD SUGAR EVERY [...] Available No t Available FreeStyle Jalil 3 Merced USE DIRECTED TO TEST BLOOD SUGAR active [...] /min 98 [degF] 126/83 mm[Hg] Not Available [facility] 5 16:18:21 Date Recorded Body temperature Oxygen saturation Oxygen saturation in Arterial blood by Pulse oximetry Heart rate Body weight Respiratory rate Body height Systolic And Diastolic Provider Name and Address Organization Details Last Updated DateTime 5 97.6 [degF] 95 % 95 % 82 /min 01727.8 88 g 16 /min 157.48 cm 122/84 mm[Hg] Not Available [facility] 5 17:32:44 Social History None recorded. Functional Status None recorded. Mental Status None recorded. Family History Nothing Reported. Medical History No medical history recorded. Gynecological HistoryNo gynecological history recorded. Obstetrics History GPAL:G 0 P 0 0 0 0 Past Encounters Encounter ID Performer Location Encounter Start Date Encounter Closed Date Diagnosis/Indication Diagnosis SNOMED-CT Code Diagnosis ICD10 Code Diagnosis IMO Codes Diagnosis Note [id number] Kathy Gonzalez [facility] [address] [place] [phone] 05/29/2024 16:18:16 05/30/2024 23:53:07 Wound finding [id number] Z51.89 [id number] Evaluation in the field was performed by my associate product integrity engineer colleague, as noted above, I provided real-time [...] shortness of breath, cough, chest pain, fever. [id number] MORGAN JAY MD [facility] [address] [phone] 09/23/2024 17:32:41 09/23/2024 22:05:40 Nausea and vomiting [id number] R11.2 [id number] Health Concerns Section Related Observation LastModified by Organization Detai ls LastModified Time None Recorded Concern Status LastModified by Organization Details LastModified Time None Recorded Advance Directives Directive None Recorded Payers Insurance Date Sequence Insurance Name Policy Number Policy Laws Covered Member ID Laws Member ID Guarantor Name 09/23/[address] [facility] - DOS ON OR AFTER 2022 - DUAL ELIGIBLE - [employer] OPTIONS AND ONE CARE (MEDICARE REPLACEMENT/ADV ANTAGE - HMO) Nuvia Da Silva [id number] Nuvia E Avinash Notes Date Note Type Note Provider Name and Address Organization Details Recorded Time 05/29/2024 text/html CRC Nurse Triage Notes (Tania Kan): Reason For Request: wound care after surgery Chief Complaints: Wound Care PMH: Diabetes Mellitus Type 2, Hyperlipidemia, Hypertension, Kidney Stones, Hysterectomy, Hypothyroidism, Asthma PMH Reviewed at 05/29/2024: Allergies Reviewed at 05/29/2024 Comments: Referral taken via Circular Shear Operator, patient calling in to place a [...] ...................... ...................... ...................... ...................... ...................... ...................... ......... Infection Control Nurse Note From Albert Murphy: Arrived to find patient ambulating in her apartment. Patient AOX4, GCS 15, skin pink warm and dry. Patient Macedonian speaking only. Application Programmer Analyst line used. Patient had hernia surgery on and is wondering if the steri strips are suppose to remain or if she needs to remove them. Educated patient that they stay and will fall off on their own. VS as noted. [facility] came on and was able to interact with patient. MD answered all questions for pt. Patient reassured. Red flags went over with pt. Patient denies any cp, sob, fevers. Incision looks clean and intact. ...................... ...................... ...................... ...................... ...................... ...................... ......... [facility] Consulted: Kathy Gonzalez ...................... ...................... ...................... ...................... ...................... ...................... ......... Disposition: Fulfilled Kathy Gonzalez MD [address] [place] [address],[address], [place], [phone] 05/29/2024 16:25:31 09/23/2024 text/html ROS as noted [...] until assessment. POC glucose was 119. Primarily Macedonian Speaking. Referral for GI upset, chest congestion/cough/weakn ess. Member aware. I provided information on the mobile health provider response time and advised the patient and/or caregiver to monitor reported signs and symptoms. I discussed the warning signs of when to seek emergency care. ...................... ...................... ...................... ...................... ...................... ...................... ......... Infection Control Nurse Note From Sebastien Bliss: instED visit for female pt with complaint of vomiting. Visit was completed with fire sprinkler designer by phone. Pt reports single episode of [...] endorsing any shortness of breath. Consulted with [facility] Dr. Jay who prescribed some zofran sent to pt's pharmacy. Red flags relayed by Dr. Jay. Pt education provided. ...................... ...................... ...................... ...................... ...................... ...................... ......... [facility] Consulted: Morgan Jay ...................... ...................... ...................... ...................... ...................... ...................... ......... Disposition: Fulfilled MORGAN JAY MD [address] [facility],[address], [place], [phone], [facility] 09/23/2024 20:39:32 OBGyn Episode No OBEpisode recorded.
== END 2024-12-08 19:30 | disposition left against medical advice (07) ==
PROVIDERS: Physician Assistant Medical; Emergency Provider Emergency Medicine; PCP Nurse Practitioner Primary Care
DX: R07.9 Chest pain, unspecified (principal); I44.0 Atrioventricular block, first degree; E11.9 Type 2 diabetes mellitus without complications; Z86.79 Personal history of other diseases of the circulatory system; Z11.52 Encounter for screening for COVID-19; Z79.899 Other long term (current) drug therapy; Z53.21 Procedure and treatment not carried out due to patient leaving prior to being seen by health care provider; Z79.4 Long term (current) use of insulin
CPT/HCPCS: 36415; 71046; 80053; 83735; 84484; 85025; 87502; 87635; 93005; 99283

== ENCOUNTER → 2024-12-08 13:58 | Outpatient (BNV) | payer OTHER, SELFPAY | PROVIDERS: Emergency Provider Emergency Medicine; PCP Nurse Practitioner Primary Care; Visit Provider Internal Medicine Cardiovascular Disease | DX: I44.0 Atrioventricular block, first degree (principal); I44.4 Left anterior fascicular block | CPT/HCPCS: 93010 ==

== ENCOUNTER → 2024-12-08 14:01 | Outpatient (BNV) | payer OTHER, SELFPAY | PROVIDERS: PCP Nurse Practitioner Primary Care; Visit Provider Radiology Diagnostic Radiology | DX: R07.9 Chest pain, unspecified (principal) | CPT/HCPCS: 71046 ==

== ENCOUNTER 2024-12-13 10:32 | Outpatient (AMB) | payer OTHER, SELFPAY ==
--- OUTSIDE RECORDS SUMMARY | 2024-12-13 12:53 | XMS_ITS | Encounter Summary ---
Author Organization [employer] Address 75 [facility] 7t [place] [address] Care Team Providers Care Animal Husbandry Professor Name Role Phone Sariah Vickers Primary Care Provider [phone] Yuri Pierre PharmD Unavailable [phone] Basilio Hall MD Unavailable [phone] Ron Preciado MD Unavailable [phone] Reason for Visit * Reason Comments Med Refill Encounter Details Date Type Department Care Team (Late st Contact Info) Description 02/06/2022 Refill [facility] MEDICINE 230 [place] [address] Sariah Vickers ANP 230 [place] [address] Social History Tobacco Use Types Packs/Day Years [...] 01/07/2025 9:30 AM EST Clinical Support [address] [address] Azeb Hall, RN 505 [place] [address] 01/11/2025 1:00 PM EST Office Visit [address] [address] Sariah Vickers ANP [address] [place] [address] 02/03/2025 11:00 AM EST Medication Management [address] [address] Yuri Pierre, PharmD [address] [place] [address] documented as of this encounter Visit Diagnoses Not on filedocumented in this encounter Care Teams Animal Husbandry Professor Relationship Specialty Start Date End Date Sariah Vickers ANP [address] [place] [address] PCP - General Family Medicine 09/23/19 Yuri Pierre, PharmD [address] [place] [address] Pharmacist Internal Medicine 05/05/24 Basilio Hall MD 596 [place] [address] Cardiology 05/17/24 Ron Preciado MD [address] [place] [address] Pulmonary Disease 05/17/24 documented as of this encounter
--- OUTSIDE RECORDS SUMMARY | 2024-12-13 12:53 | XMS_ITS | Encounter Summary ---
Author Organization [employer] Address 75 [facility] 7t [place] [address] Care Team Providers Care Software Packager Name Role Phone Sariah Vickers Primary Care Provider [phone] Yuri Pierre PharmD Unavailable [phone] Basilio Hall MD Unavailable [phone] Ron Preciado MD Unavailable [phone] Reason for Visit * Reason Comments Med Refill Encounter Details Date Type Department Care Team (Late st Contact Info) Description 08/22/2023 Refill [facility] MEDICINE 230 [place] [address] Sariah Vickers ANP 230 [place] [address] Neck pain Social History Tobacco Use Types [...] Description 01/07/2025 9:30 AM EST Clinical Support [address] [address] Azeb Hall, MARTIN 505 [place] [address] 01/11/2025 1:00 PM EST Office Visit [address] [address] Sariah Vickers ANP [address] [place] [address] 02/03/2025 11:00 AM EST Medication Management [address] [address] Yuri Pierre, MikeD [address] [place] [address] documented as of this encounter Goals Goal Patient Goal Type Associated Problems Recent Progress Patient-Stated? Author Blood Pressure < 140/90 Blood Pressure 133/91(2024 9:51 AM EDT) No Aida Ragland PharmD Record [...] as of this encounter Care Teams Software Packager Relationship Specialty Start Date End Date Sariah Vickers ANP 230 [place] [address] PCP - General Family Medicine 09/23/19 Yuri Pierre, MikeD [address] [place] [address] Pharmacist Internal Medicine 05/05/24 Basilio Hall MD 596 [place] [address] Cardiology 05/17/24 Ron Preciado MD [address] [place] [address] Pulmonary Disease 05/17/24 documented as of this encounter
--- OUTSIDE RECORDS SUMMARY | 2024-12-13 12:53 | XMS_ITS | Encounter Summary ---
Author Organization [employer] Address 75 [facility] 7t [place] [address] Care Team Providers Care Creel Cleaner Name Role Phone Sariah Vickers Primary Care Provider [phone] Yuri Pierre PharmD Unavailable [phone] Basilio Hall MD Unavailable [phone] Ron Preciado MD Unavailable [phone] Encounter Details Date Type Department Care Team (Late st Contact Info) Description 11/23/2024 Orders Only [facility] MEDICINE 230 [place] [address] Sariah Vickers ANP 230 [place] [address] Social History Tobacco Use Types Packs/Day Years [...] Description 01/07/2025 9:30 AM EST Clinical Support [address] [address] Azeb Hall, MARTIN 505 [place] [address] 01/11/2025 1:00 PM EST Office Visit [address] [address] Sariah Vickers ANP [address] [place] [address] 02/03/2025 11:00 AM EST Medication Management [address] [address] Yuri Pierre, MikeD [address] [place] [address] documented as of this encounter Goals Goal Patient Goal Type Associated Problems Recent Progress Patient-Stated? Author Blood Pressure < 140/90 Blood Pressure 133/91(2024 9:51 AM EDT) No Aida Ragland, PharmD Record [...] documented as of this encounter Care Teams Creel Cleaner Relationship Specialty Start Date End Date Sariah Vickers, KAYLEE 230 [place] [address] PCP - General Family Medicine 09/23/19 Yuri Pierre, MikeD [address] [place] [address] Pharmacist Internal Medicine 05/05/24 Basilio Hall MD 596 [place] [address] Cardiology 05/17/24 Ron Preciado MD [address] [place] [address] Pulmonary Disease 05/17/24 documented as of this encounter
--- OUTSIDE RECORDS SUMMARY | 2024-12-13 12:53 | XMS_ITS | Encounter Summary ---
Author Organization [employer] Address 75 [facility] 7t [place] [address] Care Team Providers Care Cold Molding Press Operator Name Role Phone Sariah Vickers Primary Care Provider Yuri Pierre PharmD Unavailable [phone] Basilio Hall MD Unavailable [phone] Ron Preciado MD Unavailable [phone] Encounter Details Date Type Department Care Team (Late st Contact Info) Description 01/09/2022 Abstract [facility] [address] [place] [address] Dental, Provider, DDS Social History Tobacco Use [...] 01/07/2025 9:30 AM EST Clinical Support [address] [address] Azeb Hall RN 505 [place] [address] 01/11/2025 1:00 PM EST Office Visit [facility] [address] [place] [address] Sariah Vickers ANP 230 [place] [address] 02/03/2025 11:00 AM EST Medication Management [facility] 230 [place] [address] Yuri Pierre, PharmD 230 [place] [address] documented as of this encounter Procedures Procedure [...] on filedocumented in this encounter Care Teams Cold Molding Press Operator Relationship Specialty Start Date End Date Sariah Vickers ANP 230 [place] [address] PCP - General Family Medicine 09/23/19 Yuri Pierre, MikeD 230 [place] [address] Pharmacist Internal Medicine 05/05/24 Basilio Hall MD 596 [place] [address] Cardiology 05/17/24 Ron Preciado MD [address] [place] [address] Pulmonary Disease 05/17/24 documented as of this encounter
--- OUTSIDE RECORDS SUMMARY | 2024-12-13 12:53 | XMS_ITS | Encounter Summary ---
Author Organization [employer] Address 75 [facility] 7t [place] [address] Care Team Providers Care Safety Clothing And Equipment Developer Name Role Phone Sariah Vickers Primary Care Provider [phone] Yuri Pierre PharmD Unavailable [phone] Basilio Hall MD Unavailable [phone] Ron Preciado MD Unavailable [phone] Encounter Details Date Type Department Care Team (Latest Contact Info) Description 04/14/2020 Abstract [facility] CONVERSIONS Dental, Provider, DDS Social [...] Description 01/07/2025 9:30 AM EST Clinical Support [address] [address] Azeb Hall RN 505 [place] [address] 01/11/2025 1:00 PM EST Office Visit [address] [address] Sariah Vickers ANP [address] [place] [address] 02/03/2025 11:00 AM EST Medication Management [address] [place] [address] Yuri Pierre, PharmD 230 [place] [address] documented as of this encounter Visit Diagnoses Not on filedocumented in this encounter Care Teams Safety Clothing And Equipment Developer Relationship Specialty Start Date End Date Sariah Vickers ANP 230 [place], [place] [phone] PCP - General Family Medicine 09/23/19 Yuri Pierre, PharmD 230 [place], [place] 2094140 Pharmacist Internal Medicine 05/05/24 Basilio Hall MD 596 [place] [address] Cardiology 05/17/24 Ron Preciado MD [address] [place] [address] Pulmonary Disease 05/17/24 documented as of this encounter
--- OUTSIDE RECORDS SUMMARY | 2024-12-13 12:53 | XMS_ITS | Encounter Summary ---
Author Organization [id number] Address 75 [facility] 7t [place] [address] Care Team Providers Care Digital Producer Name Role Phone Sariah Vickers Primary Care Provider [phone] Yuri Pierre PharmD Unavailable [phone] Basilio Hall MD Unavailable [phone] Ron Preciado MD Unavailable [phone] Reason for Visit * Reason Comments Med Refill Encounter Details Date Type Department Care Team (Late st Contact Info) Description 12/07/2024 Refill [facility] 230 [place] [address] Sariah Vickers ANP 230 [place] [address] Social History Tobacco Use Types Packs/Day Years [...] Description 01/07/2025 9:30 AM EST Clinical Support [address] [address] Aezb Hall RN 505 [place] [address] 01/11/2025 1:00 PM EST Office Visit [address] [address] Sariah Vickers, ANP [address] [place] [address] 02/03/2025 11:00 AM EST Medication Management [address] [address] Yuri Pierre, PharmD [address] [place] [address] documented as of this encounter Goals Goal [...] as of this encounter Care Teams Digital Producer Relationship Specialty Start Date End Date Sariah Vickers ANP 230 [place] [address] PCP - General Family Medicine 09/23/19 Yuri Pierre, MikeD 230 [place] [address] Pharmacist Internal Medicine 05/05/24 Basilio Hall MD 596 [place] [address] Cardiology 05/17/24 Ron Preciado MD [address] [place] [address] Pulmonary Disease 05/17/24 documented as of this encounter
--- OUTSIDE RECORDS SUMMARY | 2024-12-13 12:53 | XMS_ITS | Encounter Summary ---
Author Organization [employer] Address [address] [place] [address] 7t [place] [address] Care Team Providers Care Cattle Care Worker Name Role Phone Sariah Vickers Primary Care Provider Yuri Pierre PharmD Unavailable [phone] Basilio Hall MD Unavailable [phone] Ron Preciado MD Unavailable [phone] Reason for Visit * Reason Onset Date Comments Nurse Triage 11/01/2022 Encounter Details Date Type Department Care Team (Late st Contact Info) Description 11/01/[address] [facility] MEDICINE 230 [place] [address] Sariah Vickers ANP 230 [place] [address] Nurse Triage Social History Tobacco Use Types [...] 11/01/2022 3:51 PM EDT Triage call with [place] Rn Field Case Manager ID [id number] Pt reports blood sugars have been high [...] Description 01/07/2025 9:30 AM EST Clinical Support [facility] MEDICINE [address] [place] [address] Azeb Hall RN 505 [place] [address] 01/11/2025 1:00 PM EST Office Visit [address] [address] Sariah Vickers ANP [address] [place] [address] 02/03/2025 11:00 AM EST Medication Management [facility] 230 [place] [address] Yuri Pierre, PharmD 230 [place] [address] documented as of this encounter Goals Goal [...] on filedocumented in this encounter Care Teams Cattle Care Worker Relationship Specialty Start Date End Date Sariah Vickers ANP 230 [place] [address] PCP - General Family Medicine 09/23/19 Yuri Pierre, PharmD 230 [place] [address] Pharmacist Internal Medicine 05/05/24 Basilio Hall MD 596 [place] [address] Cardiology 05/17/24 Ron Preciado MD [address] [place] [address] Pulmonary Disease 05/17/24 documented as of this encounter
--- OUTSIDE RECORDS SUMMARY | 2024-12-13 12:53 | XMS_ITS | Encounter Summary ---
Author Organization [employer] Address 75 [facility] 7t [place] [address] Care Team Providers Care Thimble Press Operator Name Role Phone Sariah Vickers Primary Care Provider [phone] Yuri Pierre PharmD Unavailable [phone] Basilio Hall MD Unavailable [phone] Ron Preciado MD Unavailable [phone] Encounter Details Date Type Department Care Team (Latest Contact Info) Description 06/20/2021 Abstract [facility] CONVERSIONS Dental, Provider, DDS Social History [...] Description 01/07/2025 9:30 AM EST Clinical Support [address] [address] Azeb Hall RN 505 [place] [address] 01/11/2025 1:00 PM EST Office Visit [address] [address] Sariah Vickers ANP [address] [place] [address] 02/03/2025 11:00 AM EST Medication Management [address] [place] [address] Yuri Pierre, PharmD 230 [place] [address] documented as of this encounter Visit Diagnoses Not on filedocumented in this encounter Care Teams Thimble Press Operator Relationship Specialty Start Date End Date Sariah Vickers ANP 230 [place], [place] [phone] PCP - General Family Medicine 09/23/19 Yuri Pierre, PharmD 230 [place], [place] [phone] Pharmacist Internal Medicine 05/05/24 Basilio Hall MD 596 [place] [address] Cardiology 05/17/24 Ron Preciado MD [address] [place] [address] Pulmonary Disease 05/17/24 documented as of this encounter
--- OUTSIDE RECORDS SUMMARY | 2024-12-13 12:53 | XMS_ITS | Encounter Summary ---
Author Organization [employer] Address 75 [facility] 7t [place] [address] Care Team Providers Care Wheel Presser Name Role Phone Sariah Vickers Primary Care Provider [phone] Yuri Pierre PharmD Unavailable [phone] Basilio Hall MD Unavailable [phone] Ron Preciado MD Unavailable [phone] Encounter Details Date Type Department Care Team (Latest Contact Info) Description 05/15/2018 Abstract [facility] CONVERSIONS Dental, Provider, DDS Social History Tobacco [...] 01/07/2025 9:30 AM EST Clinical Support [address] [address] Azeb Hall RN 505 [place] [address] 01/11/2025 1:00 PM EST Office Visit [address] [address] Sariah Vickers ANP [address] [place] [address] 02/03/2025 11:00 AM EST Medication Management [address] [place] [address] Yuri Pierre, PharmD 230 [place] [address] documented as of this encounter Visit Diagnoses Not on filedocumented in this encounter Care Teams Wheel Presser Relationship Specialty Start Date End Date Sariah Vickers ANP 230 [place] [address] PCP - General Family Medicine 09/23/19 Yuri Pierre, PharmD 230 [place], [place] 6185940 Pharmacist Internal Medicine 05/05/24 Basilio Hall MD 596 [place] [address] Cardiology 05/17/24 Ron Preciado MD [address] [place] [address] Pulmonary Disease 05/17/24 documented as of this encounter
--- OUTSIDE RECORDS SUMMARY | 2024-12-13 12:53 | XMS_ITS | Encounter Summary ---
Author Organization [employer] Address 75 [facility] 7t [place] [address] Care Team Providers Care Draw Furnace Tender Name Role Phone Sariah Vickers Primary Care Provider [phone] Yuri Pierre PharmD Unavailable [phone] Basilio Hall MD Unavailable [phone] Ron Preciado MD Unavailable [phone] Reason for Visit * Reason Comments Med Refill Encounter Details Date Type Department Care Team (Late st Contact Info) Description 09/13/2022 Refill [facility] MED & PEDS [address] [place] [address] Sariah Vickers ANP 230 [place] [address] Severe persistent allergic asthma without complication Social [...] 01/07/2025 9:30 AM EST Clinical Support [address] [address] Azeb Hall, RN 505 [place] [address] 01/11/2025 1:00 PM EST Office Visit [address] [address] Sariah Vickers ANP [address] [place] [address] 02/03/2025 11:00 AM EST Medication Management [address] [address] Yuri Pierre, PharmD [address] [place] [address] documented as of this encounter Visit Diagnoses Diagnosis Severe persistent allergic asthma without complication (HCC) documented in this encounter Care Teams Draw Furnace Tender Relationship Specialty Start Date End Date Sariah Vickers ANP [address] [place] [address] PCP - General Family Medicine 09/23/19 Yuri Pierre, PharmD [address] [place] [address] Pharmacist Internal Medicine 05/05/24 Basilio Hall MD 596 [place] [address] Cardiology 05/17/24 Ron Preciado MD [address] [place] [address] Pulmonary Disease 05/17/24 documented as of this encounter
--- OUTSIDE RECORDS SUMMARY | 2024-12-13 12:53 | XMS_ITS | Encounter Summary ---
Author Organization [employer] Address 75 [facility] 7t [place] [address] Care Team Providers Care Nurse Technician Name Role Phone Sariah Vickers Primary Care Provider [phone] Yuri Pierre PharmD Unavailable [phone] Basilio Hall MD Unavailable [phone] Ron Preciado MD Unavailable [phone] Encounter Details Date Type Department Care Team (Late st Contact Info) Description 02/05/2022 Abstract [facility] MEDICINE 230 [place] [address] Sariah Vickers ANP 230 [place] [address] Social History Tobacco Use Types Packs/Day Years [...] Description 01/07/2025 9:30 AM EST Clinical Support [address] [address] Azeb Hall RN 505 [place] [address] 01/11/2025 1:00 PM EST Office Visit [address] [address] Sariah Vickers ANP [address] [place] [address] 02/03/2025 11:00 AM EST Medication Management [address] [address] Yuri Pierre, PharmD [address] [place] [address] documented as of this encounter Visit Diagnoses Not on filedocumented in this encounter Care Teams Nurse Technician Relationship Specialty Start Date End Date Sariah Vickers ANP [address] [place] [address] PCP - General Family Medicine 09/23/19 Yuri Pierre, PharmD [address] [place] [address] Pharmacist Internal Medicine 05/05/24 Basilio Hall MD [address] [place] [address] Cardiology 05/17/24 Ron Preciado MD [address] [place] [address] Pulmonary Disease 05/17/24 documented as of this encounter
--- OUTSIDE RECORDS SUMMARY | 2024-12-13 12:53 | XMS_ITS | Encounter Summary ---
Author Organization [employer] Address 75 [facility] 7t [place] [address] Care Team Providers Care Justice Court Deputy Clerk Name Role Phone Sariah Vickers Primary Care Provider [phone] Yuri Pierre PharmD Unavailable [phone] Basilio Hall MD Unavailable [phone] Ron Preciado MD Unavailable [phone] Reason for Visit * Reason Comments Med Refill Encounter Details Date Type Department Care Team (Late st Contact Info) Description 12/02/2024 Refill [facility] MED & PEDS [address] [place] [address] Sariah Vickers ANP 230 [place] [address] Type 2 diabetes mellitus with diabetic neuropathy, with long-term current use of insulin (HCC) Social History Tobacco Use Types Packs/Day Years [...] 01/07/2025 9:30 AM EST Clinical Support [address] [address] Azeb Hall, RN 505 [place] [address] 01/11/2025 1:00 PM EST Office Visit [address] [address] Sariah Vickers, KAYLEE [address] [place] [address] 02/03/2025 11:00 AM EST Medication Management [address] [address] Yuri Pierre, PharmD [address] [place] [address] documented as of this encounter Goals Goal [...] documented as of this encounter Care Teams Justice Court Deputy Clerk Relationship Specialty Start Date End Date Sariah Vickers ANP 230 [place] [address] PCP - General Family Medicine 09/23/19 Yuri Pierre, MikeD [address] [place] [address] Pharmacist Internal Medicine 05/05/24 Basilio Hall MD [address] [place] [address] Cardiology 05/17/24 Ron Preciado MD [address] [place] [address] Pulmonary Disease 05/17/24 documented as of this encounter
--- OUTSIDE RECORDS SUMMARY | 2024-12-13 12:54 | XMS_ITS | Encounter Summary ---
Author Organization [employer] Address 75 [facility] 7t [place] [address] Care Team Providers Care Ammunition Assembly I Laborer Name Role Phone Sariah Vickers Primary Care Provider [phone] Yuri Pierre PharmD Unavailable [phone] Basilio Hall MD Unavailable [phone] Ron Preciado MD Unavailable [phone] Reason for Visit * Reason Onset Date Comments Durable Medical Equipment 03/15/2022 Encounter Details Date Type Department Care Team (Late st Contact Info) Description 03/15/2022 Telephone [facility] MEDICINE 230 [place] [address] Sariah Vickers ANP 230 [place], [place] [phone] Durable Medical Equipment Social History Tobacco Use [...] 01/07/2025 9:30 AM EST Clinical Support [address] [address] Azeb Hall RN 505 [place] [address] 01/11/2025 1:00 PM EST Office Visit [address] [address] Sariah Vickers ANP [address] [place] [address] 02/03/2025 11:00 AM EST Medication Management [address] [address] Yuri Pierre, Dileep [address] [place] [address] documented as of this encounter Visit Diagnoses Not on filedocumented in this encounter Care Teams Ammunition Assembly I Laborer Relationship Specialty Start Date End Date Sariah Vickers ANP [address] [place] [address] PCP - General Family Medicine 09/23/19 Yuri Pierre, PharmD [address] [place] [address] Pharmacist Internal Medicine 05/05/24 Basilio Hall MD 596 [place] [address] Cardiology 05/17/24 Ron Preciado MD [address] [place] [address] Pulmonary Disease 05/17/24 documented as of this encounter
--- OUTSIDE RECORDS SUMMARY | 2024-12-13 12:54 | XMS_ITS | Encounter Summary ---
Author Organization [employer] Address 75 [facility] 7t [place] [address] Care Team Providers Care Toolmaker Grade Three Name Role Phone Sariah Vickers Primary Care Provider [phone] Yuri Pierre PharmD Unavailable [phone] Basilio Hall MD Unavailable [phone] Ron Preciado MD Unavailable [phone] Reason for Visit * Reason Comments Med Refill Encounter Details Date Type Department Care Team (Late st Contact Info) Description 12/12/2024 Refill [facility] MED & PEDS [address] [place] [address] Sariah Vickers ANP 230 [place] [address] Cervicalgia Social History Tobacco Use Types Packs/Day [...] Description 01/07/2025 9:30 AM EST Clinical Support [address] [address] Azeb Hall RN 505 [place] [address] 01/11/2025 1:00 PM EST Office Visit [facility] MEDICINE [address] [place] [address] Sariah Vickers, ANP [address] [place] [address] 02/03/2025 11:00 AM EST Medication Management [address] [address] Yuri Pierre, PharmD [address] [place] [address] documented as of this encounter Goals Goal [...] documented as of this encounter Care Teams Toolmaker Grade Three Relationship Specialty Start Date End Date Sariah Vickers ANP 230 [place] [address] PCP - General Family Medicine 09/23/19 Yuri Pierre, MikeD 230 [place] [address] Pharmacist Internal Medicine 05/05/24 Basilio Hall MD 596 [place] [address] Cardiology 05/17/24 Ron Preciado MD [address] [place] [address] Pulmonary Disease 05/17/24 documented as of this encounter
--- OUTSIDE RECORDS SUMMARY | 2024-12-13 12:54 | XMS_ITS | Encounter Summary ---
Author Organization [employer] Address 75 [facility] 7t [place] [address] Care Team Providers Care Cracker Off Name Role Phone Sariah Vickers Primary Care Provider [phone] Yuri Pierre PharmD Unavailable [phone] Basilio Hall MD Unavailable [phone] Ron Preciado MD Unavailable [phone] Reason for Visit * Reason Onset Date Comments Med Refill 02/04/2024 Encounter Details Date Type Department Care Team (Late st Contact Info) Description 02/04/2024 Telephone [facility] MEDICINE 230 [place] [address] Sariah Vickers ANP 230 [place], [place] [phone] Med Refill Social History Tobacco Use Types [...] 50 MG tablet To be sent to: [facility] - [place], [place] - [address] [place] [address] documented in this encounter Plan of Treatment Upcoming Encounters Date Type Department Care Team ([facility] st Contact Info) Description 01/07/2025 9:30 AM EST Clinical Support [address] [address] Azeb Hall RN 505 [place] [address] 01/11/2025 1:00 PM EST Office Visit [address] [address] Sariah Vickers ANP [address] [place] [address] 02/03/2025 11:00 AM EST Medication Management [address] [address] Yuri Pierre, PharmD 230 [place] [address] documented as of this encounter Goals Goal Patient Goal Type Associated Problems Recent Progress Patient-Stated? Author Blood Pressure < 140/90 Blood Pressure 133/91(2024 9:51 AM EDT) No Phanis-Gambl Aida urbina, PharmD [...] documented as of this encounter Care Teams Cracker Off Relationship Specialty Start Date End Date Sariah Vickers ANP 230 [place] [address] PCP - General Family Medicine 09/23/19 Yuri Pierre, PharmD 230 [place] [address] Pharmacist Internal Medicine 05/05/24 Basilio Hall MD 596 [place] [address] Cardiology 05/17/24 Ron Preciado MD [address] [place] [address] Pulmonary Disease 05/17/24 documented as of this encounter
--- OUTSIDE RECORDS SUMMARY | 2024-12-13 12:54 | XMS_ITS | Encounter Summary ---
Author Organization [email or web address] Address 75 [facility] 7t [place] [address] Care Team Providers Care Mailing Clerk Name Role Phone Sariah Vickers Primary Care Provider [phone] Yuri Pierre PharmD Unavailable [phone] Basilio Hall MD Unavailable [phone] Ron Preciado MD Unavailable [phone] Reason for Visit * Reason Comments Med Refill Encounter Details Date Type Department Care Team (Late st Contact Info) Description 03/26/[address] [facility] MEDICINE 230 [place] [address] Sariah Vickers ANP 230 [place] [address] Social History Tobacco Use Types Packs/Day Years [...] Description 01/07/2025 9:30 AM EST Clinical Support [address] [address] Azeb Hall, RN 505 [place] [address] 01/11/2025 1:00 PM EST Office Visit [address] [address] Sariah Vickers ANP [address] [place] [address] 02/03/2025 11:00 AM EST Medication Management [address] [address] Yuri Pierre, PharmD [address] [place] [address] documented as of this encounter Visit Diagnoses Not on filedocumented in this encounter Care Teams Mailing Clerk Relationship Specialty Start Date End Date Sariah Vickers ANP [address] [place] [address] PCP - General Family Medicine 09/23/19 Yuri Pierre, PharmD [address] [place] [address] Pharmacist Internal Medicine 05/05/24 Basilio Hall MD 5[address] [place] [address] Cardiology 05/17/24 Ron Preciado MD [address] [place] [address] Pulmonary Disease 05/17/24 documented as of this encounter
--- OUTSIDE RECORDS SUMMARY | 2024-12-13 12:54 | XMS_ITS | Encounter Summary ---
Author Organization [employer] Address 75 [facility] 7t [place] [address] Care Team Providers Care Energy Assistant Name Role Phone Sariah Vickers Primary Care Provider [phone] Yuri Pierre PharmD Unavailable [phone] Basilio Hall MD Unavailable [phone] Ron Preciado MD Unavailable [phone] Reason for Visit * Reason Comments Med Refill Encounter Details Date Type Department Care Team (Late st Contact Info) Description 03/03/2022 Refill [facility] MEDICINE 230 [place] [address] Sariah Vickers ANP 230 [place] [address] Social History Tobacco Use Types Packs/Day Years [...] Description 01/07/2025 9:30 AM EST Clinical Support [facility] MEDICINE [address] [place] [address] Azeb Hall RN 505 [place] [address] 01/11/2025 1:00 PM EST Office Visit [address] [address] Sariah Vickers ANP [address] [place] [address] 02/03/2025 11:00 AM EST Medication Management [address] [address] Yuri Pierre, PharmBear [address] [place] [address] documented as of this encounter Visit Diagnoses Not on filedocumented in this encounter Care Teams Energy Assistant Relationship Specialty Start Date End Date Sariah Vickers ANP [address] [place] [address] PCP - General Family Medicine 09/23/19 Yuri Pierre, PharmD [address] [place] [address] Pharmacist Internal Medicine 05/05/24 Basilio Hall MD 596 [place] [address] Cardiology 05/17/24 Ron Preciado MD [address] [place] [address] Pulmonary Disease 05/17/24 documented as of this encounter
--- OUTSIDE RECORDS SUMMARY | 2024-12-13 12:54 | XMS_ITS | Encounter Summary ---
Author Organization [employer] Address 75 [facility] 7t [place] [address] Care Team Providers Care Field Naturalist Name Role Phone Sariah Vickers Primary Care Provider [phone] Yuri Pierre PharmD Unavailable [phone] Basilio Hall MD Unavailable [phone] Ron Preciado MD Unavailable [phone] Reason for Visit * Reason Comments Med Refill Encounter Details Date Type Department Care Team (Late st Contact Info) Description 03/09/2024 Refill [facility] [address] [place] [address] Sariah Vickers ANP 230 [place] [address] Neck pain Social History Tobacco Use Types [...] Description 01/07/2025 9:30 AM EST Clinical Support [address] [address] Azeb Hall RN 505 [place] [address] 01/11/2025 1:00 PM EST Office Visit [address] [address] Sariah Vickers ANP [address] [place] [address] 02/03/2025 11:00 AM EST Medication Management [address] [address] Yuri Pierre, MikeD [address] [place] [address] documented as of this encounter Goals Goal [...] as of this encounter Care Teams Field Naturalist Relationship Specialty Start Date End Date Sariah Vickers ANP 230 [place] [address] PCP - General Family Medicine 09/23/19 Yuri Pierre, MikeD [address] [place] [address] Pharmacist Internal Medicine 05/05/24 Basilio Hall MD 596 [place] [address] Cardiology 05/17/24 Ron Preciado MD [address] [place] [address] Pulmonary Disease 05/17/24 documented as of this encounter
--- OUTSIDE RECORDS SUMMARY | 2024-12-13 12:55 | XMS_ITS | Encounter Summary ---
Author Organization [employer] Address 75 [facility] 7t [place] [address] Care Team Providers Care Learning And Development Assistant Name Role Phone Sariah Vickers Primary Care Provider [phone] Yuri Pierre PharmD Unavailable [phone] Basilio Hall MD Unavailable [phone] Ron Preciado MD Unavailable [phone] Reason for Visit * Reason Onset Date Comments Med Refill 09/18/2023 Encounter Details Date Type Department Care Team (Late st Contact Info) Description 09/18/2023 Telephone [facility] MEDICINE 230 [place], [place] [phone] Sariah Vickers ANP 230 [place], [place] [phone] Med Refill Social History Tobacco Use Types [...] refill : Tramadol To be sent to: [facility] - [place], [place] - [address] [place] [address] documented in this encounter Plan of Treatment Upcoming Encounters Date Type Department Care Team ([facility] st Contact Info) Description 01/07/2025 9:30 AM EST Clinical Support [address] [address] Azeb Hall RN 505 [place] [address] 01/11/2025 1:00 PM EST Office Visit [address] [address] Sariah Vickers ANP [address] [place] [address] 02/03/2025 11:00 AM EST Medication Management [address] [address] Yuri Pierre, PharmD 230 [place] [address] documented as of this encounter Goals Goal Patient Goal Type Associated Problems Recent Progress Patient-Stated? Author Blood Pressure < 140/90 Blood Pressure 133/91(2024 9:51 AM EDT) No Phanis-Dileepl Aida urbina PharmD [...] documented as of this encounter Care Teams Learning And Development Assistant Relationship Specialty Start Date End Date Sariah Vickers ANP 230 [place] [address] PCP - General Family Medicine 09/23/19 Yuri Pierre, PharmD 230 [place] [address] Pharmacist Internal Medicine 05/05/24 Basilio Hall MD 596 [place] [address] Cardiology 05/17/24 Ron Preciado MD [address] [place] [address] Pulmonary Disease 05/17/24 documented as of this encounter
--- OUTSIDE RECORDS SUMMARY | 2024-12-13 12:55 | XMS_ITS | Encounter Summary ---
Author Organization [employer] Address 75 [facility] 7t [place] [address] Care Team Providers Care Real Estate Officer Name Role Phone Sariah Vickers Primary Care Provider [phone] Yuri Pierre PharmD Unavailable [phone] Basilio Hall MD Unavailable [phone] Ron Preciado MD Unavailable [phone] Reason for Visit * Reason Comments Med Refill Encounter Details Date Type Department Care Team (Late st Contact Info) Description 10/03/2023 Refill [facility] 230 [place] [address] Sariah Vickers ANP 230 [place], [place] [phone] Chronic SI joint pain Social History Tobacco [...] 01/07/2025 9:30 AM EST Clinical Support [address] [address] Azeb Hall, MARTIN 505 [place] [address] 01/11/2025 1:00 PM EST Office Visit [address] [address] Sariah Vickers ANP [address] [place] [address] 02/03/2025 11:00 AM EST Medication Management [address] [address] Yuri Pierre, MikeD [address] [place] [address] documented as of this encounter Goals Goal [...] documented as of this encounter Care Teams Real Estate Officer Relationship Specialty Start Date End Date Sariah Vickers ANP 230 [place] [address] PCP - General Family Medicine 09/23/19 Yuri Pierre, MikeD [address] [place] [address] Pharmacist Internal Medicine 05/05/24 Basilio Hall MD [address] [place] [address] Cardiology 05/17/24 Ron Preciado MD [address] [place] [address] Pulmonary Disease 05/17/24 documented as of this encounter
--- OUTSIDE RECORDS SUMMARY | 2024-12-13 12:55 | XMS_ITS | Encounter Summary ---
Author Organization [employer] Address 75 [facility] 7t [place] [address] Care Team Providers Care Bull Float Finisher Name Role Phone Sariah Vickers Primary Care Provider [phone] Yuri Pierre PharmD Unavailable [phone] Basilio Hall MD Unavailable [phone] Ron Preciado MD Unavailable [phone] Reason for Visit * Reason Comments Med Refill Encounter Details Date Type Department Care Team (Late st Contact Info) Description 06/17/2024 Refill [facility] 230 [place] [address] Sariah Vickers ANP 230 [place], [place] [phone] Neck pain Social History Tobacco Use Types [...] 01/07/2025 9:30 AM EST Clinical Support [address] [address] Azeb Hall RN 505 [place] [address] 01/11/2025 1:00 PM EST Office Visit [address] [address] Sariah Vickers ANP [address] [place] [address] 02/03/2025 11:00 AM EST Medication Management [address] [address] Yuri Pierre, MikeD [address] [place] [address] documented as of this encounter Goals Goal [...] documented as of this encounter Care Teams Bull Float Finisher Relationship Specialty Start Date End Date Sariah Vickers ANP 230 [place] [address] PCP - General Family Medicine 09/23/19 Yuri Pierre, MikeD [address] [place] [address] Pharmacist Internal Medicine 05/05/24 Basilio Hall MD 596 [place] [address] Cardiology 05/17/24 Ron Preciado MD [address] [place] [address] Pulmonary Disease 05/17/24 documented as of this encounter
--- OUTSIDE RECORDS SUMMARY | 2024-12-13 12:55 | XMS_ITS | Encounter Summary ---
Author Organization [employer] Address 75 [facility] 7t [place] [address] Care Team Providers Care Pre Assembly Wirer Name Role Phone Sariah Vickers Primary Care Provider [phone] Yuri Pierre PharmD Unavailable [phone] Basilio Hall MD Unavailable [phone] Ron Preciado MD Unavailable [phone] Reason for Visit * Reason Comments Med Refill Patient walked in [facility] pharmacy hasn't finished her Medbox due to missing refill for medication Gabapetin . Encounter Details Date Type Department Care Team (Late st Contact Info) Description 10/03/2023 Refill [facility] 230 [place], [place] [phone] Sariah Vickers ANP 230 [place], [place] [phone] Chronic SI joint pain Social History Tobacco [...] the past 12 months, has t he [employer] gas, oil or water company threatened to [...] 01/07/2025 9:30 AM EST Clinical Support [address] [address] Azeb Hall RN 505 [place] [address] 01/11/2025 1:00 PM EST Office Visit [address] [address] Sariah Vickers ANP [address] [place] [address] 02/03/2025 11:00 AM EST Medication Management [address] [address] Yuri Pierre, PharmD 230 [place] [address] documented as of this encounter Goals Goal [...] documented as of this encounter Care Teams Pre Assembly Wirer Relationship Specialty Start Date End Date Sariah Vickers ANP 230 [place] [address] PCP - General Family Medicine 09/23/19 Yuri Pierre, PharmD 230 [place] [address] Pharmacist Internal Medicine 05/05/24 Basilio Hall MD 596 [place] [address] Cardiology 05/17/24 Ron Preciado MD [address] [place] [address] Pulmonary Disease 05/17/24 documented as of this encounter
--- OUTSIDE RECORDS SUMMARY | 2024-12-13 12:55 | XMS_ITS | Encounter Summary ---
Author Organization [employer] Address 75 [facility] 7t [place] [address] Care Team Providers Care Informatica Name Role Phone Sariah Vickers Primary Care Provider [phone] Yuri Pierre PharmD Unavailable [phone] Basilio Hall MD Unavailable [phone] Ron Preciado MD Unavailable [phone] Reason for Visit * Reason Comments Med Refill Pt wants to know if she can keep taking prednis Encounter Details Date Type Department Care Team (Late st Contact Info) Description 06/26/2024 Refill [facility] [address] [place] [address] Sariah Vickers ANP 230 [place] [address] Cervicalgia Social History Tobacco Use Types Packs/Day [...] Description 01/07/2025 9:30 AM EST Clinical Support [address] [address] Azeb Hall, MARTIN 505 [place] [address] 01/11/2025 1:00 PM EST Office Visit [facility] MEDICINE [address] [place] [address] Sariah Vickers ANP [address] [place] [address] 02/03/2025 11:00 AM EST Medication Management [facility] MED[facility] [address] [place] [address] Yuri Pierre, MikeD [address] [place] [address] documented as of this encounter Goals Goal [...] documented as of this encounter Care Teams Informatica Relationship Specialty Start Date End Date Sariah Vickers ANP 230 [place] [address] PCP - General Family Medicine 09/23/19 Yuri Pierre, MikeD 230 [place] [address] Pharmacist Internal Medicine 05/05/24 Basilio Hall MD [address] [place] [address] Cardiology 05/17/24 Ron Preciado MD [address] [place] [address] Pulmonary Disease 05/17/24 documented as of this encounter
--- OUTSIDE RECORDS SUMMARY | 2024-12-13 12:55 | XMS_ITS | Encounter Summary ---
Author Organization [employer] Address 75 [facility] 7t [place] [address] Care Team Providers Care Electrical Lineman Name Role Phone Sariah Vickers Primary Care Provider [phone] Yuri Pierre PharmD Unavailable [phone] Basilio Hall MD Unavailable [phone] Ron Preciado MD Unavailable [phone] Reason for Visit * Reason Onset Date Comments Results 12/09/2024 Encounter Details Date Type Department Care Team (Late st Contact Info) Description 12/09/2024 Telephone [facility] MEDICINE 230 [place], [place] [phone] Sariah Vickers ANP 230 [place], [place] [phone] Results Social History Tobacco Use Types Packs/Day [...] encounter Miscellaneous Notes * Telephone Encounter - Alyx Son - 12/09/2024 12:40 PM EDT TC from pt requesting call back regarding Results. Type of results: lab results Date when done: 12/08 [address]: [facility] Contact pt at [phone] (azeri) documented in this encounter Plan of Treatment Upcoming Encounters Date Type Department Care Team ([facility] st Contact Info) Description 01/07/2025 9:30 AM EST Clinical Support [facility] MEDICINE [address] [place] [address] Azeb Hall RN 505 [place] [address] 01/11/2025 1:00 PM EST Office Visit [address] [address] Sariah Vickers ANP 230 [place] [address] 02/03/2025 11:00 AM EST Medication Management [facility] MEDICINE 230 [place] [address] Yuri Pierre, PharmD 230 [place] [address] documented as of this encounter Goals Goal [...] as of this encounter Care Teams Electrical Lineman Relationship Specialty Start Date End Date Sariah Vickers ANP [address] [place] [address] PCP - General Family Medicine 09/23/19 Yuri Pierre, PharmD [address] [place] [address] Pharmacist Internal Medicine 05/05/24 Basilio Hall MD 596 [place] [address] Cardiology 05/17/24 Ron Preciado MD [address] [place] [address] Pulmonary Disease 05/17/24 documented as of this encounter
--- OUTSIDE RECORDS SUMMARY | 2024-12-13 12:55 | XMS_ITS | Encounter Summary ---
Author Organization [employer] Address 75 [facility] 7t [place] [address] Care Team Providers Care Puppet Engineer Name Role Phone Sariah Vickers Primary Care Provider [phone] Yuri Pierre PharmD Unavailable [phone] Basilio Hall MD Unavailable [phone] Ron Preciado MD Unavailable [phone] Reason for Visit * Reason Comments Med Refill Encounter Details Date Type Department Care Team (Late st Contact Info) Description 12/10/2024 Refill [facility] MEDICINE 230 [place] [address] Sariah Vickers ANP 230 [place] [address] Type 2 diabetes mellitus with hyperlipidemia (HCC) Social History Tobacco Use Types Packs/Day [...] Description 01/07/2025 9:30 AM EST Clinical Support [address] [address] Azeb Hall, MARTIN 505 [place] [address] 01/11/2025 1:00 PM EST Office Visit [address] [address] Sariah Vickers, ANP [address] [place] [address] 02/03/2025 11:00 AM EST Medication Management [address] [address] Yuri Pierre, PharmD [address] [place] [address] documented as of this encounter Goals Goal Patient Goal Type Associated Problems Recent Progress Patient-Stated? Author Blood Pressure < 140/90 Blood Pressure 133/91(2024 9:51 AM EDT) No Aida Ragland PharmBear Record Your Blood Sugar As Directed General No Aida Ragland PharmD Hemoglobin A1c < 7 Result Component 6.6( 1:54 PM EDT) No Aida Ragland PharmD documented as of this encounter Visit Diagnoses Diagnosis Type 2 diabetes mellitus with hyperlipidemia (HCC) documented in this encounter Additional Health Concerns Assessment Noted Time PHQ-9 Depression Total Score: 11 025 5:30 PM EDT documented as of this encounter Care Teams Puppet Engineer Relationship Specialty Start Date End Date Sariah Vickers ANP 230 [place] [address] PCP - General Family Medicine 09/23/19 Yuri Pierre PharmD 230 [place] [address] Pharmacist Internal Medicine 05/05/24 Basilio Hall MD 596 [place] [address] Cardiology 05/17/24 Ron Preciado MD [address] [place] [address] Pulmonary Disease 05/17/24 documented as of this encounter
--- OUTSIDE RECORDS SUMMARY | 2024-12-13 12:55 | XMS_ITS | Encounter Summary ---
Author Organization [employer] Address 75 [facility] 7t [place] [address] Care Team Providers Care Privacy Director Name Role Phone Sariah Vickers Primary Care Provider [phone] Yuri Pierre PharmD Unavailable [phone] Basilio Hall MD Unavailable [phone] Ron Preciado MD Unavailable [phone] Reason for Visit * Reason Comments Med Refill Encounter Details Date Type Department Care Team (Late st Contact Info) Description 10/03/[address] [facility] WALK[facility]IN C[facility] 230 [place] [address] Sariah Vickers ANP 230 [place], [place] [phone] Chronic SI joint pain Social History Tobacco [...] Description 01/07/2025 9:30 AM EST Clinical Support [address] [address] Azeb Hall, MARTIN 505 [place] [address] 01/11/2025 1:00 PM EST Office Visit [address] [address] Sariah Vickers ANP [address] [place] [address] 02/03/2025 11:00 AM EST Medication Management [address] [address] Yuri Pierre, MikeD [address] [place] [address] documented as of this encounter Goals Goal [...] documented as of this encounter Care Teams Privacy Director Relationship Specialty Start Date End Date Sariah Vickers ANP 230 [place] [address] PCP - General Family Medicine 09/23/19 Yuri Pierre, MikeD [address] [place] [address] Pharmacist Internal Medicine 05/05/24 Basilio Hall MD [address] [place] [address] Cardiology 05/17/24 Ron Preciado MD [address] [place] [address] Pulmonary Disease 05/17/24 documented as of this encounter
--- OUTSIDE RECORDS SUMMARY | 2024-12-13 12:55 | XMS_ITS | Encounter Summary ---
Author Organization [employer] Address [address] [facility] [address] [place] [address] Care Team Providers Care Superintendent Communications Name Role Phone Anthony Ruiz KAYLEE Primary Care Provider [phone] Yuri Pierre PharmD Unavailable [phone] Basilio Hall MD Unavailable [phone] Ron Preciado MD Unavailable [phone] Encounter Details Date Type Department Care Team (Late st Contact Info) Description 12/08/2024 Orders Only GENERIC EXTERNAL DATA DEPARTMENT Provider, [...] Description 01/07/2025 9:30 AM EST Clinical Support [address] [address] Azeb Hall RN [address] [place] [address] 01/11/2025 1:00 PM EST Office Visit [address] [address] Anthony Ruiz ANP [address] [place] [address] 02/03/2025 11:00 AM EST Medication Management [address] [address] Yuri Pierre, MikeD [address] [place] [address] documented as of this encounter Goals Goal Patient Goal Type Associated Problems Recent Progress Patient-Stated? Author Blood Pressure < 140/90 Blood Pressure 133/91(2024 9:51 AM EDT) No Aida Ragland PharmD Record Your Blood Sugar As Directed General No Aida Ragland, PharmD Hemoglobin A1c < 7 Result Component 6.6( 1:54 PM EDT) No Aida Ragland, Dileep documented as of this encounter Procedures Procedure Name Priority Date/Time Associated Diagnosis Comments XR CHEST 2 VIEWS Routine 12/08/2024 2:21 PM EDT INFLUENZA A B2 ID NOW (BAILEY) Routine 12/08/2024 2:09 PM EDT COVID-19 ID NOW ([facility]) Routine 12/08/2024 2:09 PM EDT HIGH SENSITIVITY TROPONIN I Routine 12/08/2024 2:09 PM EDT CBC WITH AUTO DIFFERENTIAL Routine 12/08/2024 2:09 PM EDT MAGNESIUM Routine 12/08/2024 2:09 PM EDT COMPREHENSIVE METABOLIC PANEL Routine 12/08/2024 2:09 PM EDT documented in this encounter Results * XR Chest 2 Views (12/08/2024 2:21 PM EDT) Anatomical Region Laterality Modality Chest Radiographic Griselda ging 12/08/2024 2:21 PM EDT Narrative 12/08/2024 2:34 PM EDT [place] [address] XRay Report Signed Patient: Nuvia Fay MR #: [id number] : 1960 Acct:[id number] Age/Sex: 64 / F ADM Date: 12/08/24 Loc: HO.ED Attending Dr: Ordering Physician: Rosangela Ventura Date of Service: 12/08/24 Procedure(s): XR chest 2V Accession Number(s): [id number] cc: Rosangela Ventura; ANTHONY RUIZ NP Reason for Exam: chest pain EXAMINATION: XR CHEST 2 VIEWS HISTORY: chest pain COMPARISON: Comparison is made with the prior examination dated 07/27/2024. FINDINGS: PA and lateral views of the chest are submitted. There is scarring at the left lung base. The lungs are otherwise clear. There is no pleural effusion, pneumothorax, or pulmonary vascular congestion. The heart is normal in size. The aorta is tortuous. The bones are intact. XR/XR chest 2V IMPRESSION: No acute cardiopulmonary abnormality. Electronically signed by: Kelvin Eldridge MD 12/08/2024 02:31 PM EDT RP Dictated By: Kelvin Eldridge MD Signed By: <Electronically signed by Kelvin Eldridge MD in OV> 12/08/24 143 DD/ 20 TD/TT: 12/08/241427 Restaurant Lead: Procedure Note Donotuseinterpreter, Image - 12/08/[address] [address] XRay Report Signed Patient: Nuvia Fay EMR #: [id number] : 1960cct:[id number] Age/Sex: 64 / FADM Date: 12/08/24 Loc: HO.ED Attending Dr: Ordering Physician: Rosangela Ventura Date of Service: 12/08/24 Procedure(s): XR chest 2V Accession Number(s): [id number] cc: Rosangela Ventura; ANTHONY RUIZ NP Reason for Exam: chest pain EXAMINATION: XR CHEST 2 VIEWS HISTORY: chest pain COMPARISON: Comparison is made with the prior examination dated 07/27/2024. FINDINGS: PA and lateral views of the chest are submitted. There is scarring at the left lung base. The lungs are otherwise clear. There is no pleural effusion, pneumothorax, or pulmonary vascular congestion. The heart is normal in size. The aorta is tortuous. The bones are intact. XR/XR chest 2V IMPRESSION: No acute cardiopulmonary abnormality. Electronically signed by: Kelvin Eldridge MD 12/08/2024 02:31 PM EDT RP Dictated By: Kelvin Eldridge MD Signed By: <Electronically signed by Kelvin Eldridge MD in OV> 12/08/24 1431 DD/ 20 TD/TT: 12/08/241427 Restaurant Lead: [facility] External Provider IMG XR PROCEDURES Final Result * High Sensitivity Troponin I (12/08/2024 2:09 PM EDT) [facility] TROPONIN I HIGH SENSITIVITY <2.7 <3.5 - 17.0 ng/L [facility] Comment:The Bailey high sens itivity Troponin-I results should beused in conjunction with other diagnostic information suchas ECG, clinical observations and information, and patientsymptoms to aid in the diagnosis of HI. 12/08/2024 2:09 PM EDT 12/08/2024 2:13 PM EDT Generic External Data Provider LAB BLOOD ORDERAB LES Final Result Performing Organization Address [facility] Co de Phone Number [facility] [address] [place] [phone] * Influenza A B2 ID NOW ([facility]) (12/08/2024 2:09 PM EDT) Pathologist [facility] IDNOW SERIAL# [id number] [facility] Influenza A Negative Negative [facility] Influenza B2 Negative Negative [facility] Influenza A B2 Note See Note [facility] Comment:The Bailey ID NOW In fluenza A B2 test is used for thequalitative detection of influenza A and B from patientswith signs and symptoms of respiratory infection.Negative results do not preclude influenza virus infectionand should not be used as the sole basis for diagnosis,treatment or other patient management decisions.There is a risk of false negative results due to thepresence of variants in the viral targets of the assay, lowlevels of virus in the specimen and co- infection withRespiratory Syncytial Virus. 12/08/2024 2:09 PM EDT 12/08/2024 2:13 PM EDT Generic External Data Provider LAB MICROBIOLOGY - GENERAL ORDERABLES Final Result Performing Organization Address [facility]/ZIP Co de Phone Number [facility] [address] [place] [phone] * COVID-19 ID NOW ([facility]) (12/08/2024 2:09 PM EDT) IDNOW SERIAL# [id number] [facility] COVID-19 TEST Negative Negative [facility] COVID-19 NOTE See Note [facility] Comment: Results are for the identification of SARS-CoV2 RNA. TheSARS-CoV2 RNA is generally detectable in respiratory samplesduring the acute phase of infection. Positive results areindicative of the presence of SARS-CoV-2 RNA; clinicalcorrelation with patient history and other diagnosticinformation is necessary to determine patient infectionstatus. Positive results do not rule out bacterial infectionor co- infection with other viruses.Testing facilities within the [facility] and itsterritories are required to report all positive results tothe appropriate public health authorities.Negative results should be treated as presumptive and, ifinconsistent with clinical signs and symptoms or necessaryfor patient management, should be tested with differentauthorized or cleared molecular tests. Negative results donot preclude SARS-CoV2 RNA infection and should not be usedas the sole basis for patient management decisions. Negativeresults should be considered in the context of a patient'srecent exposures, history and the presence of clinical signsand symptoms consistent with COVID-19.This test has been authorized by the FDA under an EmergencyUse Authorization (EUA) for use by authorized laboratories.Testing performed on the Bailey ID NOW utilizing NAAT. 12/08/2024 2:09 PM EDT 12/08/2024 2:13 PM EDT us Generic External Data Provider LAB MOLECULAR LILIAM GNOSTICS ORDERABLES Final Result [facility] [address] [place] [address] [phone] * Magnesium (12/08/2024 2:09 PM EDT) Magnesium 2.1 1.6 - 2.6 mg/dL [facility] 12/08/2024 2:09 PM EDT 12/08/2024 2:13 PM EDT us Generic External Data Provider LAB BLOOD ORDERAB LES Final Result [facility] [address] [place] [address] [phone] * (ABNORMAL) Comprehensive Metabolic Panel (12/08/2024 2:09 PM EDT) Sodium 141 135 - 145 mmol/L [facility] Potassium 3.7 3.3 - 5.1 mmol/L [facility] Chloride 109(H) 96 - 108 mmol/L [facility] Carbon Dioxide 25 22 - 29 mmol/L [facility] Anion Gap 11(L) 12 - 20 [facility] Urea Nitrogen (BUN) 13 9 - 16 mg/dL [facility] Creatinine, Serum 0.90 0.5 - 1.4 mg/dL [facility] Creatinine Clr Calc Pharmacy 64.2 [facility] Comment:Provided height and weight: 152.4 cm,92.896 kg.eGFR (calculated from the MDRD study equation) and eCrCl(calculated from the Cockcroft-Gault equation) are based ondifferent parameters and may not yield comparable results.If eCrCl result is absurd, please check patient'sheight/weight. Estimated Glomerular Filt Rate >60 [facility] Comment:Chronic Kidney Disea se: Estimated GFR < 60 mL/min/1.83z6Tulejb Kidney Disease: Estimated GFR < 15 mL/min/1.73m2 Glucose 214(H) 60 - 115 mg/dL [facility] Calcium 9.8 8.4 - 10.2 mg/dL [facility] Bilirubin, Total 0.3 0.0 - 1.0 mg/dL [facility] Aspartate Amino Transferase 28 5 - 31 U/L [facility] Alanine Aminotransferase 16 0 - 31 U/L [facility] Total Protein 7.4 6.5 - 8.0 g/dL [facility] Albumin Level 4.2 3.5 - 5.0 g/dL [facility] Alkaline Phosphatase 101 39 - 117 U/L [facility] 12/08/2024 2:09 PM EDT 12/08/2024 2:13 PM EDT us Generic External Data Provider LAB BLOOD ORDERAB LES Final Result Performing Organization Address City/State/[facility] Co de Phone Number [facility] [address] [place] [phone] [phone] * (ABNORMAL) CBC auto differential (12/08/2024 2:09 PM EDT) White Blood Count 7.6 4.8 - 10.8 X10*3/uL [facility] Red Blood Count 4.67 4.20 - 5.50 X10*6/uL [facility] Hemoglobin 14.7 12.0 - 16.0 g/dl [facility] Hematocrit 44.2 37.0 - 47.0 % [facility] Mean Corpuscular Volume 94.6 80.0 - 98.0 fL [facility] Mean Corpuscular Hemoglobin 31.5 27.0 - 33.0 pg [facility] Mean Corpuscular HGB Conc 33.3 31.0 - 35.0 g/dl [facility] Red Cell Distribution Width 12.9 11.0 - 16.0 % [facility] Platelet Count 268 160 - 400 X10*3/uL [facility] Mean Platelet Volume 9.2(L) 9.4 - 12.3 fL [facility] Neutrophils Percent Auto 82.1(H) 45 - 73 % [facility] Imm Gran Pct Auto 0.3 0.0 - 0.4 % [facility] Lymphocytes Percent Auto 16.1(L) 20 - 40 % [facility] Monocytes Percent Auto 0.8(L) 2 - 11 % [facility] Eosinophils Percent Auto 0.3 0 - 4 % [facility] Basophils Percent Auto 0.4 0 - 2 % [facility] NRBC Pct Auto 0.0 0.0 - 0.2 /100WBC [facility] Neutrophils Absolute Auto 6.2 2.0 - 8.3 x10*3/uL [facility] Imm Gran Abs Auto 0.02 0.00 - 0.03 X10*3/uL [facility] Lymphocytes Absolute Auto 1.2 1.2 - 4.9 X10*3/uL [facility] Monocytes Absolute Auto 0.1 0.1 - 1.2 X10*3/uL [facility] Eosinophils Absolute Auto 0.0 0.0 - 0.4 X10*3/uL [facility] Basophils Absolute Auto 0.0 0.0 - 0.2 X10*3/uL [facility] NRBC Abs Auto 0.000 0.0 - 0.012 X10*3/uL [facility] 12/08/2024 2:09 PM EDT 12/08/2024 2:13 PM EDT us Generic External Data Provider LAB BLOOD ORDERAB LES Final Result [facility] [address] [place] [address] [phone] documented in this encounter Visit Diagnoses Not on filedocumented in this encounter Additional Health Concerns Assessment Noted Time PHQ-9 Depression Total Score: 11 025 5:30 PM EDT documented as of this encounter Care Teams Superintendent Communications Relationship Specialty Start Date End Date Anthony Ruiz ANP [address] [place] [address] PCP - General Family Medicine 09/23/19 Yuri Pierre, Dileep [address] [place] [address] Pharmacist Internal Medicine 05/05/24 Basilio Hall MD [address] [place] [address] Cardiology 05/17/24 Ron Preciado MD [address] [place] [phone] Pulmonary Disease 05/17/24 documented as of this encounter
--- OUTSIDE RECORDS SUMMARY | 2024-12-13 12:56 | XMS_ITS | Encounter Summary ---
Author Organization [employer] Address [address] [facility] 7t [place] [address] Care Team Providers Care Galley Boy Name Role Phone Anthony Ruiz Primary Care Provider [phone] Yuri Pierre PharmD Unavailable [phone] Basilio Hall MD Unavailable [phone] Ron Preciado MD Unavailable [phone] Encounter Details Date Type Department Care Team (Late st Contact Info) Description 09/28/2024 Orders Only [facility] [address] [place] [address] Anthony Ruiz ANP [address] [place] [address] Social History Tobacco Use Types Packs/Day Years [...] Description 01/07/2025 9:30 AM EST Clinical Support [address] [address] Azeb Hall, RN [address] [place] [address] 01/11/2025 1:00 PM EST Office Visit [address] [address] Anthony Ruiz ANP [address] [place] [address] 02/03/2025 11:00 AM EST Medication Management [address] [address] Yuri Pierre, MikeD [address] [place] [address] documented as of this encounter Goals Goal [...] PM EDT Narrative 10/09/2024 1:20 PM EDT [place] [address] [address] Scan Report Signed Patient: Nuvia Fay MR #: [id number] : 1960 Acct:[id number] Age/Sex: 64 / F ADM Date: 10/08/24 Loc: HO.CT Attending Dr: Ron Preciado MD Ordering Physician: Ron Preciado MD Date of Service: 10/08/24 Procedure(s): CT lung screening Accession Number(s): [id number] cc: Ron Preciado MD; ANTHONY RUIZ NP Report Number: [id number]: Total DLP = 64.00 mGy-cm CLINICAL HISTORY: [...] 10/09/24 1319 DD/ 1318 TD/TT: 10/09/24 1318 Amusement Equipment Operator: Procedure Note Donotuseinterpreter, Image - 10/09/[address] [place] [address] [address] Scan Report Signed Patient: Nuvia Fay EMR #: [id number] : 1960cct:[id number] Age/Sex: 64 / FADM Date: 10/08/24 Loc: .CT Attending Dr: Ron Preciado MD Ordering Physician: Ron Preciado MD Date of Service: 10/08/24 Procedure(s): CT lung screening Accession Number(s): [id number] cc: Ron Preciado MD; ANTHONY RUIZ NP Report Number: [id number]: Total DLP = 64.00 mGy-cm CLINICAL HISTORY: [...] 10/09/24 1319 DD/ 1318 TD/TT: 10/09/24 1318 Amusement Equipment Operator: [facility] External Provider IMG CT PROCEDURES Edited Result - Final documented in this encounter Visit Diagnoses Not on filedocumented in this encounter Additional Health Concerns Assessment Noted Time PHQ-9 Depression Total Score: 12 024 2:58 PM EDT documented as of this encounter Care Teams Galley Boy Relationship Specialty Start Date End Date Anthony Ruiz ANP [address] [place] [address] PCP - General Family Medicine 09/23/19 Yuri Pierre, PharmD [address] [place] [address] Pharmacist Internal Medicine 05/05/24 Basilio Hall MD [address] [place] [address] Cardiology 05/17/24 Ron Preciado MD [address] [place] [address] Pulmonary Disease 05/17/24 documented as of this encounter
--- OUTSIDE RECORDS SUMMARY | 2024-12-13 12:56 | XMS_ITS | Encounter Summary ---
Author Organization [employer] Address [address] [facility] 7t [place] [address] Care Team Providers Care Tower Equipment Repairer Name Role Phone Sariah Vickers Primary Care Provider [phone] Yuri Pierre PharmD Unavailable [phone] Basilio Hall MD Unavailable [phone] Ron Preciado MD Unavailable [phone] Reason for Visit * Reason Comments Med Refill Encounter Details Date Type Department Care Team (Late st Contact Info) Description 11/26/2023 Refill [facility] [address] [place] [address] Sariah Vickers ANP [address] [place] [address] Vertigo Social History Tobacco Use Types Packs/Day [...] Description 01/07/2025 9:30 AM EST Clinical Support [address] [address] Azeb Hall, MARTIN [address] [place] [address] 01/11/2025 1:00 PM EST Office Visit [address] [address] Sariah Vickers ANP [address] [place] [address] 02/03/2025 11:00 AM EST Medication Management [address] [address] Yuri Pierre, MikeD [address] [place] [address] documented as of this encounter Goals Goal [...] documented as of this encounter Care Teams Tower Equipment Repairer Relationship Specialty Start Date End Date Sariah Vickers ANP [address] [place] [address] PCP - General Family Medicine 09/23/19 Yuri Pierre, MikeD [address] [place] [address] Pharmacist Internal Medicine 05/05/24 Basilio Hall MD [address] [place] [address] Cardiology 05/17/24 Ron Preciado MD [address] [place] [address] Pulmonary Disease 05/17/24 documented as of this encounter
--- OUTSIDE RECORDS SUMMARY | 2024-12-13 12:56 | XMS_ITS | Encounter Summary ---
Author Organization [employer] Address [address] [facility] 7t [place] [address] Care Team Providers Care College Advisor Name Role Phone Sariah Vickers Primary Care Provider [phone] Yuri Pierre PharmD Unavailable [phone] Basilio Hall MD Unavailable [phone] Ron Preciado MD Unavailable [phone] Reason for Visit * Reason Comments Med Refill Encounter Details Date Type Department Care Team (Late st Contact Info) Description 10/17/2023 Refill [facility] [address] [place] [address] Sariah Vickers ANP [address] [place] [address] Neck pain Social History Tobacco Use Types [...] Description 01/07/2025 9:30 AM EST Clinical Support [address] [address] Azeb Hall, MARTIN [address] [place] [address] 01/11/2025 1:00 PM EST Office Visit [address] [address] Sariah Vickers ANP [address] [place] [address] 02/03/2025 11:00 AM EST Medication Management [address] [address] Yuri Pierre, MikeD [address] [place] [address] documented as of this encounter Goals Goal [...] as of this encounter Care Teams College Advisor Relationship Specialty Start Date End Date Sariah Vickers ANP [address] [place] [address] PCP - General Family Medicine 09/23/19 Yuri Pierre, MikeD [address] [place] [address] Pharmacist Internal Medicine 05/05/24 Basilio Hall MD [address] [place] [address] Cardiology 05/17/24 Ron Preciado MD [address] [place] [address] Pulmonary Disease 05/17/24 documented as of this encounter
--- OUTSIDE RECORDS SUMMARY | 2024-12-13 12:56 | XMS_ITS | Clinical Summary ---
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 Active Lactobacillus-In ulin ([facility] [employer]) capsule 023 Active Xolair 150 MG/ML [...] 2 times daily. 1 each 023 Active Alcohol Swabs (Alcohol Prep) 70 % [...] DIRECTED THREE TIMES DAILY 100 each 5 03/31/2 025 Active amLODIPine (Norvasc) 10 MG tablet TAKE 1 TABLET BY MOUTH EVERY EVENING 90 tablet 1 Active montelukast (Singulair) 10 MG tablet TAKE 1 TABLET BY MOUTH EVERY EVENING 90 tablet 1 Active Continuous Glucose [employer] Specialist (FreeStyle Jalil 3 [place]) device 1 each Once per day. Use [...] Once per day. 30 tablet 2025 Active TRUEplus Lancets 33G miscIndications: Type 2 diabetes mellitus with hyperglycemia (HCC) TEST BLOOD SUGAR FOUR TIMES DAILY 200 each Active Fluticasone-Salm eterol 250-50 MCG/ACT aerosol powderIndication s:Severe persistent asthma without complication (HCC) INHALE 1 PUFF BY MOUTH TWICE DAILY, RINSE MOUTH AFTER USING. 60 each 5 08/12/2 025 Active gabapentin (Neurontin) 400 MG capsuleIndicatio ns:Chronic SI joint pain TAKE 1 CAPSULE BY MOUTH AT BEDTIME 30 capsule 2 025 Active fluticasone (Flonase) 50 MCG/ACT nasal [...] tablet 025 Active Blood Glucose Monitoring Suppl (ikaSystemse) w/Device kit 1 each 3 times daily. [...] DOES NOT RESPOND. 2 each 1 025 Active Glutose 15 40 % gel oral gel TAKE 15 GRAMS BY MOUTH DAILY NEEDED FOR LOW BLOOD SUGAR 112.5 g 2 025 Active enalapril (Vasotec) 20 MG tabletIndication s:Essential hypertension TAKE 1 TABLET BY MOUTH EVERY MORNING 30 tablet 1 025 Active Diclofenac Sodium 1 % gelIndications:C hronic bilateral low back pain, unspecified whether sciatica present APPLY 2 GRAMS TOPICALLY TO AFFECTED AREA(S) ONCE DAILY NEEDED FOR PAIN 100 g 1 025 Active ipratropium-albu terol (Duo-Neb) 0.5-2.5 mg/3 mL nebulizer solutionIndicati ons:Severe persistent asthma without complication (HCC) INHALE 1 AMPULE USING A NEBULIZER EVERY 6 HOURS NEEDED 90 mL 5 025 Active TRUEplus Glucose 4 g chewable tabletIndication s:Type 2 diabetes mellitus with hyperlipidemia (HCC) CHEW 4 TABLETS NEEDED FOR low blood sugar (LESS THAN 70mg/dL) 50 tablet 12 025 Active glucose 4 g chewable tabletIndication s:Type 2 diabetes mellitus with hyperlipidemia (HCC) CHEW 4 TABLETS BY MOUTH NEEDED LOW FOR BLOOD SUGAR 50 tablet 12 024 2024 Discontinued levothyroxine (Synthroid, Levoxyl) 75 MCG tabletIndication s:Hypothyroidism , unspecified TAKE 1 TABLET BY MOUTH EVERY MORNING 90 tablet 4 025 2024 Discontinued(D ose adjustment) glucagon (Baqsimi Two Pack) 3 MG/DOSE nasal powderIndication s:Type 2 diabetes mellitus with diabetic neuropathy, with long-term current use of insulin ([facility]) Administer 3 mg into affected nostril(s) 1 (one) time if needed for low blood sugar for up to 1 dose. USE 1 SPRAY (3MG) IN ONE NOSTRIL FOR A PATIENT WITH SEVERE HYPOGLYCEMIA WHO IS NOT RESPONSIVE AND UNABLE SELF-TREAT WITH GLUCOSE. AFTERWARDS TURN ON SIDE. MAY REPEAT IN 15MINUTES IF PATIENT DOES NOT RESPOND. 2 each 1 025 2024 Discontinued Diclofenac Sodium 1 % gelIndications:C hronic bilateral low back pain, unspecified whether sciatica present APPLY 2 GRAMS TOPICALLY TO AFFECTED AREA(S) ONCE DAILY NEEDED FOR PAIN 100 g 1 025 2024 Discontinued enalapril (Vasotec) 20 MG tabletIndication [...] sugar. 60 g 2 025 2024 Discontinued ipratropium-albu terol (Duo-Neb) 0.5-2.5 mg/3 mL nebulizer solutionIndicati ons:Severe persistent asthma without complication (HCC) INHALE 1 AMPULE USING A NEBULIZER EVERY 6 HOURS NEEDED 90 mL 5 025 2024 Discontinued(R eorder (will not trigger notification to Pharmacy)) predniSONE (Deltasone) 20 MG tablet Take 2 tablets (40 mg) by mouth Once per day for 5 days. 10 tablet 025 2024 Hospital, Clinic, or Other Facility Administered Medication Ordered Dose Route Frequency Start Date End Date Status ipratropium-albutero l (Duo-Neb) 0.5-2.5 mg/3 mL nebulizer solution 3 mgIndications:Acute bronchitis, unspecified organism 3 mg NEBULIZATION Once 12/03/2024 12/03/2024 En ded Active Problems Problem Noted Date Diagnosed Date Vaginal bleeding 11/03/2024 Assessment & Plan (11/03/2024 12:59 PM EDT): Post menopausal bleeding in patient s/p hysterectomy X 1 episode On exam, source of bleeding most likely ectactic enlarged blood vessel of inner L labia Continue to monitor Apply Vaseline to area twice daily to seal bleeding vessel Will refer to retail personal banker for followup if needed Return precautions for [...] is currently connected with MH services through [facility]. Pt needing additional support due to [...] her family. She will continue services with [facility] for OP therapy and psychiatry services. clinician will be available if needed during next medical appointment. PLAN: (check all that apply) Continue with current services (defined as services in the past 12 months) . Pt is engaged with OP therapy and psychiatry services with [facility] @ [facility] Excessive attrition of teeth, [...] her family. She will continue services with [facility] for OP therapy and psychiatry services. clinician will be available if needed during next medical appointment. PLAN: (check all that apply) Continue with current services (defined as services in the past 12 months) . Pt is engaged with OP therapy and psychiatry services with [facility] @ [facility] Fibromyalgia 07/31/2022 Asthma-COPD overlap syndrome (CMS/HCC) 3 Right foot pain 06/21/2022 Assessment & Plan [...] for possible plantar fasciitis -referred today to lead former x ongoing discomfort -may need orthopedic shoes and will benefit from complete diabetic foot exam -explained to pt that if symptoms dont improve may consider neuro referral x neuropathy eval and would do vit b12,folic acid check ,and full neuropathy workup Paresis of one side of face 01/09/2022 Paresthesia 01/09/2022 Aneurysm of left internal carotid artery 022 Type 2 diabetes mellitus with hyperlipidemia ( S/HCC) 02/02/2016 Gastroesophageal reflux disease 01/19/2015 Increased [...] individual therapy and psychiatry with N at [facility]. Sees psych provider every two months and therapist bi-weekly. Pt will reach out to clinician as needed. Assessment & Plan (04/10/2023 11:08 AM EST): PLAN: (check all that apply) Behavioral Health Integration Plan Patient Self Plan Patient to reach out to [facility] team as needed Assessment [...] healthy manner PLAN: 1. Follow up with [facility]: Not recommended for follow-up 2. Patient goal is: reduce anxiousness 3. Behavioral Recommendations a. Patient will comply with medication b. Patient may request to speak with a C during next PCP visit, if needed Chronic [...] 10/29/2022 Acute asthma exacerbation 07/31/2022 COPD exacerbation (CMS/HCC) 07/31/2022 05/17/2024 Assessment & Plan (10/27/2023 4:48 [...] organization. Date Type Department Care Team Description 12/12/2024 Refill [facility] [address] [place] [address] Anthony Ruiz ANP Cervicalgia 12/10/2024 Refill [facility] [address] [place] [phone] Anthony Ruiz ANP Type 2 diabetes mellitus with hyperlipidemia (HCC) 12/09/2024 Telephone [facility] [address] [place] [phone] Anthony Ruiz ANP Results 12/08/2024 Orders Only GENERIC EXTERNAL DATA DEPARTMENT Provider, Generic External Data 12/07/2024 Refill [facility] [address] [place] [phone] Anthony Ruiz ANP 12/03/2024 10:20 AM EDT Office Visit [facility] [address] [place] [phone] Jess Coyne MD Acute bronchitis, unspecified organism (Primary Dx); Severe persistent asthma without complication (HCC) 12/02/2024 Refill [facility] [address] [place] [address] Anthony Ruiz ANP Type 2 diabetes mellitus with diabetic neuropathy, with long-term current use of insulin (HCC) 12/01/2024 Refill [facility] [address] [place] [address] Debra Faye MD Chronic bilateral low back pain, unspecified whether sciatica present 11/24/2024 Refill [facility] [address] [place] [phone] Anthony Ruiz ANP Essential hypertension; Severe persistent asthma without complication (HCC) 11/23/2024 Orders Only [facility] [address] [place] [address] Anthony Ruiz ANP 11/19/2024 Refill [facility] [address] [place] [address] Chava Presley MD 11/16/2024 Refill [facility] [address] [place] [address] Anthony Ruiz ANP Type 2 diabetes mellitus with diabetic neuropathy, with long-term current use of insulin (CMS/HCC) 11/15/2024 Travel 11/14/2024 Refill [facility] [address] [place] [address] Anthony Ruiz ANP Cervicalgia 11/12/2024 Refill [facility] [address] [place] [phone] Anthony Ruiz ANP Neck pain 11/11/2024 Refill [facility] [address] [place] [address] Yogesh Gomez, JOHN 11/10/2024 3:30 PM EDT Immunization [facility] [address] [place] [phone] Yohana Quinn RN Encounter for immunization 11/10/2024 Travel 11/09/2024 9:00 AM EDT Office Visit [facility] [address] [place] [phone] Chava Presley MD Type 2 diabetes mellitus with hyperlipidemia (CMS/HCC) (Primary Dx) 11/09/2024 Telephone [facility] [address] [place] [address] Azeb Hall RN 11/09/2024 Travel 11/08/2024 Telephone [facility] [address] [place] [phone] Anthony Ruiz ANP Nurse Triage 11/05/2024 2:30 PM EDT Office Visit [address] [address] Hallie Tapia MD Boils (Primary Dx) 11/05/2024 Travel 11/03/[address] [address] Anthony Ruiz ANP Results 11/01/2024 2:45 PM EDT Office Visit [address] [address] Reta Sue MD Vaginal bleeding (Primary Dx); Dietary counseling; Exercise counseling; Class 2 obesity without serious comorbidity with body mass index (BMI) of 35.0 to 35.9 in adult, unspecified obesity type; Vulvar itching; Constipation, unspecified constipation type; Hemorrhoids, unspecified hemorrhoid type 11/01/2024 Travel 10/29/2024 Refill [facility] [address] [place] [address] Anthony Ruiz ANP Neck pain 10/26/2024 Results Follow-Up [address] [address] Anthony Ruiz ANP Thyroid Peroxidase Antibodies, Cardiolipin Antibodies (IgA,IgG,IgM) 10/25/[address] [address] Anthony Ruiz ANP 10/23/[address] [address] Anthony Ruiz ANP 10/22/2024 Orders Only GENERIC EXTERNAL DATA DEPARTMENT Provider, Generic External Data 10/20/2024 Results Follow-Up [address] [address] Anthony Ruiz ANP Prothrombin Time-INR, C-reactive Protein, Amylase, Additional followed-up results: 7 10/19/2024 Refill [facility] [address] [place] [address] Anthony Ruiz ANP Cervicalgia 10/14/2024 1:30 PM EDT Office Visit [address] [address] Anthony Ruiz ANP Type 2 diabetes mellitus with hyperlipidemia (CMS/HCC) (CMS/HCC) (Primary Dx); Chronic pain of both knees; Chronic SI joint pain; Primary osteoarthritis of both knees; Essential hypertension; Long-term current use of opiate analgesic; OKEEFE (nonalcoholic steatohepatitis); Asthma-COPD overlap syndrome (CMS/HCC) 10/14/2024 Travel 10/13/2024 10:40 AM EDT Office Visit [facility] [address] [place] [address] Chava Presley MD Essential hypertension (Primary Dx) 10/13/2024 Travel 10/12/2024 Orders Only GENERIC EXTERNAL DATA DEPARTMENT Provider, Generic External Data 10/09/2024 Refill [facility] [address] [place] [address] Anthony Ruiz ANP Severe persistent asthma without complication 10/06/2024 Travel 10/04/2024 Refill [facility] [address] [place] [address] Zakia Uriostegui NP Type 2 diabetes mellitus with hyperglycemia (CMS/HCC) 10/01/2024 11:00 AM EDT Clinical Support [facility] [address] [place] [address] Azeb Hall, RN Neck pain 10/01/2024 Telephone [facility] [address] [place] [address] Azeb Hall, MARTIN 10/01/2024 Travel 09/30/2024 Telephone [facility] [address] [place] [address] Anthony Ruiz ANP Referral 09/30/2024 Telephone [facility] [address] [place] [address] Anthony Ruiz ANP Referral 09/30/2024 Refill [facility] [address] [place] [address] Anthony Ruiz ANP Chronic SI joint pain 09/28/2024 Orders Only [facility] [address] [place] [address] Anthony Ruiz ANP 09/25/2024 Refill [facility] [address] [place] [address] Anthony Ruiz ANP Chronic SI joint pain; Essential hypertension; Severe persistent asthma without complication 09/24/2024 2:00 PM EDT Office Visit [facility] [address] [place] [address] Luisa Martinez, OD Diabetes type 2, no ocular involvement (CMS/HCC) (Primary Dx); Mixed type age-related cataract, both eyes; Lesion of left lower eyelid; Presbyopia 09/24/2024 Travel 09/19/2024 Refill [facility] [address] [place] [address] Debra Faye MD Cervicalgia 09/16/2024 Refill [facility] [address], [place] [phone] Zakia Uriostegui NP Type 2 diabetes mellitus with hyperglycemia (CMS/HCC); Neck pain from Last 3 Months Immunizations Immunization Administration [...] Sign Reading Time Taken Comments Blood Pressure 133/91 12/03/2024 9:51 AM EDT Pulse 88 12/03/2024 9:51 AM EDT Temperature 36.3 C (97.4 F) 12/03/2024 9:51 AM EDT Respiratory Rate 16 12/03/2024 9:51 AM EDT Oxygen Saturation 97% 12/03/2024 9:51 AM EDT Inhaled Oxygen Concentration - - Weight 93.7 kg (206 lb 8 oz) 11/05/2024 2:17 PM EDT Height 160 cm (5' 3 ) 11/05/2024 2:17 PM EDT Body Mass Index 36.58 11/05/2024 2:17 PM EDT Plan of Treatment Upcoming Encounters Date Type Department Care Team (Late st Contact Info) Description 01/07/2025 9:30 AM EST Clinical Support [address] [address] Azeb Hall, RN [address] [place] [address] 01/11/2025 1:00 PM EST Office Visit [address] [address] Anthony Ruiz, ANP [address] [place] [address] 02/03/2025 11:00 AM EST Medication Management [address] [address] Yuri Pierre, PharmD [address] [place] [phone] Health Maintenance Due Date Last Done Comments [...] 2025 08/05/19 25, 09/12/2023, 08/12/2022 Tobacco Screening 11/09/2025 11/09/2024 Dental [...] 2 VIEWS Routine 12/08/2024 2:21 PM EDT HIGH SENSITIVITY TROPONIN I Routine 12/08/2024 2:09 PM EDT COVID-19 ID NOW (BAILEY) Routine 12/08/2024 2:09 PM EDT MAGNESIUM Routine 12/08/2024 2:09 PM EDT COMPREHENSIVE METABOLIC PANEL Routine 12/08/2024 2:09 PM EDT CBC WITH AUTO DIFFERENTIAL Routine 12/08/2024 2:09 PM EDT INFLUENZA A B2 ID NOW ([facility]ILEY) Routine 12/08/2024 2:09 PM EDT BACTERIAL VAGINOSIS PANEL Routine 11/01/2024 12:00 AM EDT Vulvar itching LUPUS ANTICOAGULANT EVALUATION WITH REFLEX Routine 10/22/2024 10:49 AM EDT [id number] I ANTIBODIES (IGG, IGA, IGM) Routine 10/22/2024 10:49 AM EDT ACTIN (SMOOTH MUSCLE) ANTIBODY (IGG) Routine 10/22/2024 10:49 AM EDT CARDIOLIPIN AB (IGA,IGG,IGM) Routine 10/22/2024 10:49 AM EDT THYROID PEROXIDASE ANTIBODIES Routine 10/22/2024 10:49 AM EDT POCT GLYCATED HEMOGLOBIN, TOTAL Routine 10/14/2024 1:54 PM EDT Type 2 diabetes mellitus with hyperlipidemia (CMS/HCC) ([facility]) POCT GLUCOSE Routine 10/14/2024 1:52 PM EDT Type 2 diabetes mellitus with hyperlipidemia (CMS/HCC) ([facility]) REX SCREEN, IFA, W/REFL TITER AND [...] Recently Relevant to Health Maintenance Results * XR Chest 2 Views (12/08/2024 2:21 PM EDT) Anatomical Region Laterality Modality Chest Radiographic Griselda ging 12/08/2024 2:21 PM EDT Narrative 12/08/2024 2:34 PM EDT [place] [address] XRay Report Signed Patient: Nuvia Fay MR #: [id number] : [id number] Acct:[id number] Age/Sex: 64 / F ADM Date: 12/08/24 Loc: .ED Attending Dr: Ordering Physician: Rosangela Ventura Date of Service: 12/08/24 Procedure(s): XR chest 2V Accession Number(s): [id number] cc: Rosangela Ventura; ANTHONY RUIZ NP Reason [...] Eldridge MD in OV> 12/08/24 1431 DD/ 1421 TD/TT: 12/08/24 1428 Rn Building: Procedure Note Donotuseinterpreter, Image - 12/08/[address] [address] XRay Report Signed Patient: Nuvia Fay EMR #: [id number] : [id number]:[id number] Age/Sex: 64 / FADM Date: 12/08/24 Loc: HO.ED Attending Dr: Ordering Physician: Rosangela Ventura Date of Service: 12/08/24 Procedure(s): XR chest 2V Accession Number(s): [id number] cc: Rosangela Ventura; ANTHONY RUIZ NP Reason [...] Eldridge MD in OV> 12/08/24 1431 DD/ 1421 TD/TT: 12/08/24 1428 Rn Building: [facility] External Provider IMG XR PROCEDURES Final Result * Influenza A B2 ID NOW (Bailey) (12/08/2024 2:09 PM EDT) IDNOW SERIAL# [id number] [facility] Influenza A Negative Negative [facility] Influenza B2 Negative Negative [facility] Influenza A B2 Note See Note [facility] Comment:The Bailey ID NOW In fluenza [...] EDT us Generic External Data Provider LAB MICROBIOLOGY - GENERAL ORDERABLES Final Result [facility] [address] [place] [address] [phone] * COVID-19 ID NOW ([employer]) (12/08/2024 2:09 PM EDT) IDNOW SERIAL# [id number] [facility] COVID-19 TEST Negative Negative [facility] COVID-19 NOTE See Note [facility] Comment: Results are for the identification of SARS-CoV2 RNA. TheSARS-CoV2 RNA is generally detectable in respiratory samplesduring the acute phase of infection. Positive results areindicative of the presence of SARS-CoV-2 RNA; clinicalcorrelation with patient history and other diagnosticinformation is necessary to determine patient infectionstatus. Positive results do not rule out bacterial infectionor co- infection with other viruses.Testing facilities within the [facility] and [facility] are required to report all positive results [...] PM EDT Generic External Data Provider LAB MOLECULAR LILIAM GNOSTICS ORDERABLES Final Result Performing Organization Address [facility] de Phone Number [facility] [address] [place] [phone] * High Sensitivity Troponin I (12/08/2024 2:09 PM EDT) [facility] TROPONIN I HIGH SENSITIVITY <2.7 <3.5 - 17.0 ng/L [facility] Comment:The Bailey high sens itivity Troponin-I results should beused in conjunction with other diagnostic information suchas ECG, clinical observations and information, and patientsymptoms to aid in the diagnosis of [place]. 12/08/2024 2:09 PM EDT 12/08/2024 2:13 PM EDT Generic External Data Provider LAB BLOOD ORDERAB LES Final Result Performing Organization Address [facility] de Phone Number [facility] [address] [place] [phone] * (ABNORMAL) CBC auto differential (12/08/2024 2:09 PM EDT) [facility] White Blood Count 7.6 4.8 - 10.8 X10*3/uL [facility] Red Blood Count 4.67 4.20 - 5.50 X10*6/uL [facility] Hemoglobin 14.7 12.0 - 16.0 g/dl [facility] Hematocrit 44.2 37.0 - 47.0 % [facility] Mean Corpuscular Volume 94.6 80.0 - 98.0 fL [facility] Mean Corpuscular Hemoglobin 31.5 27.0 - 33.0 pg [facility] Mean Corpuscular HGB Conc 33.3 31.0 - 35.0 g/dl [facility] Red Cell Distribution Width 12.9 11.0 - 16.0 % [facility] Platelet Count 268 160 - 400 X10*3/uL [facility] Mean Platelet Volume 9.2(L) 9.4 - 12.3 fL [facility] Neutrophils Percent Auto 82.1(H) 45 - 73 % [facility] Imm Gran Pct Auto 0.3 0.0 - 0.4 % [facility] Lymphocytes Percent Auto 16.1(L) 20 - 40 % [facility] Monocytes Percent Auto 0.8(L) 2 - 11 % [facility] Eosinophils Percent Auto 0.3 0 - 4 % [facility] Basophils Percent Auto 0.4 0 - 2 % [facility] NRBC Pct Auto 0.0 0.0 - 0.2 /100WBC [facility] Neutrophils Absolute Auto 6.2 2.0 - 8.3 x10*3/uL [facility] Imm Gran Abs Auto 0.02 0.00 - 0.03 X10*3/uL [facility] Lymphocytes Absolute Auto 1.2 1.2 - 4.9 X10*3/uL [facility] Monocytes Absolute Auto 0.1 0.1 - 1.2 X10*3/uL [facility] Eosinophils Absolute Auto 0.0 0.0 - 0.4 X10*3/uL [facility] Basophils Absolute Auto 0.0 0.0 - 0.2 X10*3/uL [facility] NRBC Abs Auto 0.000 0.0 - 0.012 X10*3/uL [facility] 12/08/2024 2:09 PM EDT 12/08/2024 2:13 PM EDT us Generic External Data Provider LAB BLOOD ORDERAB LES Final Result [facility] [address] [place] [phone] * Magnesium (12/08/2024 2:09 PM EDT) Magnesium 2.1 1.6 - 2.6 mg/dL [facility] 12/08/2024 2:09 PM EDT 12/08/2024 2:13 PM EDT us Generic External Data Provider LAB BLOOD ORDERAB LES Final Result [facility] [address] [place] [phone] * (ABNORMAL) Comprehensive Metabolic Panel (12/08/2024 2:09 PM EDT) Sodium 141 135 - 145 mmol/L [facility] Potassium 3.7 3.3 - 5.1 mmol/L [facility] Chloride 109(H) 96 - 108 mmol/L [facility] Carbon Dioxide 25 22 - 29 mmol/L [facility] Anion Gap 11(L) 12 - 20 [facility] Urea Nitrogen (BUN) 13 9 - 16 mg/dL [facility] Creatinine, Serum 0.90 0.5 - 1.4 mg/dL [facility] Creatinine Clr Calc Pharmacy 64.2 [facility] Comment:Provided height and weight: 152.4 cm,92.896 kg.eGFR (calculated from the MDRD study equation) and eCrCl(calculated from the Cockcroft-Gault equation) are based ondifferent parameters and may not yield comparable results.If eCrCl result is absurd, please check patient'sheight/weight. Estimated Glomerular Filt Rate >60 [facility] Comment:Chronic Kidney Disea se: Estimated GFR < 60 mL/min/1.13k1Hytdcc Kidney Disease: Estimated GFR < 15 mL/min/1.73m2 Glucose 214(H) 60 - 115 mg/dL [facility] Calcium 9.8 8.4 - 10.2 mg/dL [facility] Bilirubin, Total 0.3 0.0 - 1.0 mg/dL [facility] Aspartate Amino Transferase 28 5 - 31 U/L [facility] Alanine Aminotransferase 16 0 - 31 U/L [facility] Total Protein 7.4 6.5 - 8.0 g/dL [facility] Albumin Level 4.2 3.5 - 5.0 g/dL [facility] Alkaline Phosphatase 101 39 - 117 U/L [facility] 12/08/2024 2:09 PM EDT 12/08/2024 2:13 PM EDT us Generic External Data Provider LAB BLOOD ORDERAB LES Final Result Performing Organization Address [facility]/ZIP Co de Phone Number [facility] [address] [place] [phone] * Bacterial Vaginosis Panel (11/01/2024 12:00 AM EDT) TRICHOMONAS VAGINALIS DETECTION BY PCR NOT DETECTED Not Detect [facility] BACTERIAL VAGINOSIS DETECTION BY PCR NEGATIVE Negative [facility] Comment:The BV organism targ [...] DETECTION BY PCR NOT DETECTED Not Detect [facility] Eufemia glab krusei PCR NOT DETECTED Not Detect [facility] Swab Vaginal structure / Unknown 11/01/2024 11/01/2024 us Reta Sue MD LAB MICROBIOLOGY - GENERAL ORD ERABLES Final Result Performing Organization Address [facility]/ZIP Co de Phone Number [facility] [address] [place] [phone] * Teyy-5-Mdqtsumsmszt I Antibodies (IgG, IgA, IgM) (10/22/2024 10:49 AM EDT) B2 Glycoprotein I IgG Antibody <2.0 <20.0 U/mL [facility] Comment:Value Interpretation ----- < 20.0 Antibody not detected> or = 20.0 Antibody detected B2 Glycoprotein I IgM Antibody <2.0 <20.0 U/mL [facility] Comment:Value Interpretation ----- < 20.0 Antibody not detected> or = 20.0 Antibody detected B2 Glycoprotein I IgA Antibody <2.0 <20.0 U/mL [facility] Comment: Value Interpretation----- < 20.0 Antibody not detected> or = 20.0 Antibody detectedThe antiphospholipid antibody syndrome (APS) is aclinical- pathologic correlation that includes aclinical event (e.g. arterial or venous thrombosis, morbidity) and persistent positiveantiphospholipid antibodies (IgM, IgG Cardiolipin bzs9SKN antibodies greater than the 99th percentile;or a [...] therapy or aging.For additional information, please refer tohttp://education.Firecomms/faq/OPW266(This link is being provided for informational/educational purposes only.)THIS TEST WAS PERFORMED AT:[facility]N[address] [place] [address]CLEEVBNDEAN CASAS MD,PHD 10/22/2024 10:4 9 AM EDT 10/22/2024 10:49 AM EDT us Generic External Data Provider LAB BLOOD ORDERAB LES Final Result [facility] [address] [place] [phone] * (ABNORMAL) Thyroid Peroxidase Antibodies (10/22/2024 10:49 AM EDT) Thyroid Peroxidase Antibodies >900(A) <9 IU/mL [facility] Comment:THIS TEST WAS PERFOR MED AT:[facility] [address] [address]QPCXUHERNAN WARREN MD 10/22/2024 10:4 9 AM EDT 10/22/2024 10:49 AM EDT us Generic External Data Provider LAB BLOOD ORDERAB LES Final Result Performing Organization Address City/[facility]/ZIP Co de Phone Number [facility] [address] [place] [address] [phone] * (ABNORMAL) Actin (Smooth Muscle) Antibody (IgG) (10/22/2024 10:49 AM EDT) Only the most recent of2 resultswithin the time period is included. Smooth Muscle Antibody 47(A) <20 U [facility] Comment:Reference Range: <20 U: Negative>or=20 U: [...] with AIH type 1.THIS TEST WAS PERFORMED AT:[facility] [place] [address]AWYSHYVDEAN CASAS MD,PHD 10/22/2024 10:4 9 AM EDT 10/22/2024 10:49 AM EDT us Generic External Data Provider LAB BLOOD ORDERAB LES Final Result Performing Organization Address City/[facility]/ZIP Co de Phone Number [facility] [address] [place] [address] [phone] * Lupus Anticoagulant Evaluation with Reflex (10/22/2024 10:49 AM EDT) Pathologist [facility] Lupus Interpretation see note [facility] Comment:A Lupus Anticoagulan t is not detected.Reference Range: Not DetectedFor additional information, please refer tohttp://MI Airline.Firecomms/faq/UHP42k5(This link is being provided for informational/educational purposes only.)This interpretation is based on the following testresults. PTT (LAC) Screen 33 <=40 sec [facility] DRVVT Screen 35 <=45 sec [facility] Comment:THIS TEST WAS PERFOR MED AT:[facility] [place] [address]PECAQJHDEAN CASAS MD,PHD dRVVT Confirmation TNP [facility] dRVVT 1:1 Mix [facility] DRV[facility] 1:1 Mix Interpretation [facility] Hexagonal Phase Neutralization [facility] Thrombin Clotting Time [facility] 10/22/2024 10:4 9 AM EDT 10/22/2024 10:49 AM EDT us Generic External Data Provider LAB BLOOD ORDERAB LES Final Result [facility] [address] [place] [phone] * Cardiolipin Antibodies (IgA,IgG,IgM) (10/22/2024 10:49 AM EDT) Pathologist [facility] Cardiolipin Antibody (IgG) <2.0 GPL-U/mL [facility] Comment:Value Interpretation ----- < 20.0 Antibody not detected> or = 20.0 Antibody detected Cardiolipin Antibody (IgM) <2.0 MPL-U/mL [facility] Comment: Value Interpretation----- < 20.0 Antibody not detected> or = 20.0 Antibody detectedThe antiphospholipid antibody syndrome (APS) is aclinical- pathologic correlation that includes aclinical event (e.g. arterial or venous thrombosis, morbidity) and persistent positiveantiphospholipid antibodies (IgM, IgG Cardiolipin aoa0LGC antibodies greater than the 99th percentile; ora [...] therapy or aging.For additional information, please refer tohttp://education.Firecomms/faq/JPG929(This link is being provided for informational/educational purposes only.)THIS TEST WAS PERFORMED AT:[facility] [place] [address]XPLGNHERNAN WARREN MD 10/22/2024 10:4 9 AM EDT 10/22/2024 10:49 AM EDT Generic External Data Provider LAB BLOOD ORDERAB LES Final Result [facility] [address] [place] [phone] * (ABNORMAL) POCT HGB A1C (10/14/2024 [...] Media Lot # [id number] Lot# Expiration Date 2991,026 Blood Capillary blood specimen / Unknown 10/14/2024 1:52 PM EDT us Anthony [facility] POINT OF CARE TEST ENTER/EDIT OR DERABLES Final Result * (ABNORMAL) TSH with Reflex to Free T4 (10/12/2024 2:10 PM EDT) TSH reflex Free T4 6.80(H) 0.32 - 4.0 uIU/mL [facility] 10/12/2024 2:10 PM EDT 10/12/2024 2:10 PM EDT Generic External Data Provider LAB BLOOD ORDERAB LES Final Result Performing Organization Address [facility] Co de Phone Number [facility] [address] [place] [phone] * Prothrombin Time-INR (10/12/2024 2:10 PM EDT) Prothrombin Time 10.9 10.9 - 12.4 SEC [facility] INTERNATIONAL NORM RATIO 1.0 0.9 - 1.1 [facility] Comment:INTERNATIONAL NORMAL IZED RATIO (INR) REFERENCE [...] ORDERAB LES Final Result Performing Organization Address [facility] Co de Phone Number [facility] [address] [place] [phone] * C-reactive Protein (10/12/2024 2:10 PM EDT) C Reactive Protein 0.31 < or = 0.50 mg/dL [facility] 10/12/2024 2:10 PM EDT 10/12/2024 2:10 PM EDT us Generic External Data Provider LAB BLOOD ORDERAB LES Final Result [facility] [address] [place] [address] [phone] * (ABNORMAL) REX Screen,IFA, with Reflex to Titer and Pattern (10/12/2024 2:10 PM EDT) Pathologist [facility] Anti Nuclear Antibody Screen POSITIV E(A) NEGATIVE [facility] Comment:REX IFA is a first l ine screen for detecting thepresence of up to approximately 150 autoantibodies invarious autoimmune diseases. A positive REX IFA resultis suggestive of autoimmune disease and reflexes totiter and pattern. Further laboratory testing may beconsidered if clinically indicated.For additional information, please refer tohttp://education.[employer]faq/ZON888(This link is being provided for informational/educational purposes only.)THIS TEST WAS PERFORMED AT:[facility] [place] [address]HERNAN WARREN MD REX Titer 1:1280( A) titer [facility] Comment:Reference Range <1:4 0 Negative 1:40-1:80 Low Antibody Level >1:80 Elevated Antibody Level REX Pattern Nuclear , Homogen eous(A) [facility] Comment:Homogeneous pattern is associated with systemic lupuserythematosus (SLE), drug-induced lupus and juvenileidiopathic arthritis.AC-1: HomogeneousInternational Consensus on REX Patterns(https://doi.org/10.1515/ugbw-1696-5067)THIS TEST WAS PERFORMED AT:[facility] [address] [address]HERNAN WARREN MD REX TITER 2 (REF LAB) [facility] REX Pattern 2 [facility] REX TITER 3 [facility] REX PATTERN 3 [facility] 10/12/2024 2:10 PM EDT 10/12/2024 2:10 PM EDT Generic External Data Provider LAB BLOOD ORDERAB LES Final Result Performing Organization Address [facility]/ZIP Co de Phone Number [facility] [address] [place] [phone] * T4, Free (10/12/2024 2:10 PM EDT) [facility] Free T4 (Free Thyroxine) 0.99 0.71 - 1.85 ng/dL [facility] 10/12/2024 2:10 PM EDT 10/12/2024 2:10 PM EDT Generic External Data Provider LAB BLOOD ORDERAB LES Final Result Performing Organization Address [facility] Co de Phone Number [facility] [address] [place] [phone] * Lipase (10/12/2024 2:10 PM EDT) [facility] Lipase 20 8 - 78 U/L [facility] 10/12/2024 2:10 PM EDT 10/12/2024 2:10 PM EDT Generic External Data Provider LAB BLOOD ORDERAB LES Final Result Performing Organization Address [facility] de Phone Number [facility] [address] [place] [phone] * (ABNORMAL) Hemoglobin A1c (10/12/2024 2:10 PM EDT) [facility] Hemoglobin A1c 6.5(H) <6.0 % [facility] Comment:Hemoglobin A1C Refer ence Range Adults: 4.8 - 6.0 % Non diabetic: < 6.0 % Goal: < 7.0 %Additional Action Suggested: > 8.0 %Note: Hemoglobin A1c results are invalid for patients with abnormal amounts of HbF. Blood transfusions may impact the HbA1c concentration in the patient sample. Estimated Average Glucose 140 mg/dL [facility] Comment:eAG = Estimated ave rage glucose which is %A1C expressed asaverage glucose, using the formula of the F6T-RpghltmDafpgap Glucose study (ADAG), Diabetes Care, Vol.31,#8,Sep. 2007 10/12/2024 2:10 PM EDT 10/12/2024 2:10 PM EDT us Generic External Data Provider LAB BLOOD ORDERAB LES Final Result Performing Organization Address [facility] Co de Phone Number [facility] [address] [place] [phone] * Ferritin (10/12/2024 2:10 PM EDT) Ferritin 69 10 - 250 ng/mL [facility] 10/12/2024 2:10 PM EDT 10/12/2024 2:10 PM EDT Generic External Data Provider LAB BLOOD ORDERAB LES Final Result Performing Organization Address [facility] de Phone Number [facility] [address] [place] [phone] * Amylase (10/12/2024 2:10 PM EDT) Amylase 36 28 - 100 U/L [facility] 10/12/2024 2:10 PM EDT 10/12/2024 2:10 PM EDT Generic External Data Provider LAB BLOOD ORDERAB LES Final Result Performing Organization Address [facility] Co de Phone Number [facility] [address] [place] [phone] * CT Lung Screening Low dose (10/09/2024 1:18 PM EDT) Anatomical Region Laterality Modality Lung Computed Tomogra phy 10/09/2024 1:18 PM EDT Narrative 10/09/2024 1:20 PM EDT [address] [address] [address] Scan Report Signed Patient: Nuvia Fay MR #: [id number] : 1960 Acct:[id number] Age/Sex: 64 / F ADM Date: 10/08/24 Loc: HO.CT Attending Dr: Ron Preciado MD Ordering Physician: Ron Preciado MD Date of Service: 10/08/24 Procedure(s): CT lung screening Accession Number(s): [id number] cc: Ron Preciado MD; ANTHONY RUIZ NP Report Number: [id number]: Total DLP = 64.00 mGy-cm CLINICAL HISTORY: [...] Myrick MD in OV> 10/09/24 1319 DD/ 131 TD/TT: 10/09/24 131 Rn Building: Procedure Note Donotuseinterpreter, Image - 10/09/[address] [place] [address] [address] Scan Report Signed Patient: Nuvia Fay EMR #: [id number] : 1960cct:[id number] Age/Sex: 64 / FADM Date: 10/08/24 Loc: HO.CT Attending Dr: Ron Preciado MD Ordering Physician: Ron Preciado MD Date of Service: 10/08/24 Procedure(s): CT lung screening Accession Number(s): [id number] cc: Ron Preciado MD; ANTHONY RUIZ NP Report Number: [id number]: Total DLP = 64.00 mGy-cm CLINICAL HISTORY: [...] document has been electronically signed by: Ligia Argutea MD on 10/09/2024 13:18:52 Dictated By: Ligia Myrick MD Signed By: <Electronically signed by Ligia Myrick MD in OV> 10/09/24 1319 DD/ 1318 TD/TT: 10/09/24 1318 Rn Building: [facility] External Provider IMG CT PROCEDURES Edited Result [...] - 10/01/2024 10:43 AM EDT .UTOX cup Lot#[id number] Exp. 11/23/25 Internal Pass Control [facility] POINT OF CARE TEST ENTER/EDIT OR DERABLES Final Result * Hepatitis C Antibody ([facility]) (08/06/2024) Pathologist [facility] Hepatitis C Ab Nonreactive Blood 08/06/2024 Result [facility] Provider MD LAB BLOOD ORDERABLES Kelsey l Result * HIV Ab/Ag ([facility]) (08/06/2024) Pathologist [facility] HIV Ag/Ab Nonreactive Blood 08/06/2024 [facility] Provider MD LAB BLOOD ORDERABLES Kelsey l Result * (ABNORMAL) Lipid Panel, Standard (06/18/2024 10:18 AM EDT) Triglycerides 122 <150 mg/dL [facility] Comment:Desirable Triglyceri de: less than 150 mg/dLBorderline High Triglyceride 150-199 mg/dLHigh Triglyceride: 200-499 mg/dLVery High Triglyceride: greater than or equal to 5OO mg/dL Cholesterol 216(H) <200 mg/dL [facility] Comment:Desirable Cholestero l: less than 200 mg/dLBorderline High Cholesterol: 200-239 mg/dLHigh Cholesterol: greater than 239 mg/dL LDL Cholesterol Calculated 128(H) <100 mg/dL [facility] Comment:Desirable LDL: less than 100 mg/dLNear Optimal/Above Optimal LDL: 110- 129 mg/dLBorderline High LDL: 130-159 mg/dLHigh LDL: 160-189 mg/dLVery High LDL: greater than or equal to 190 mg/dL HDL Cholesterol 64 >40 mg/dL [facility] Comment:Desirable HDL: great er than 40 mg/dL Note: This HDL assay may give artificially low results in patients with liver disease. Blood Venous blood specimen / Unknown 06/18/2024 10:18 AM EDT 06/18/2024 11:08 AM EDT us Anthony Ruiz ANP LAB BLOOD ORDERABLES Final Resul t [facility] [address] [place] [address] [phone] * BI Mammogram Screening Tomosynthesis Bilateral (04/12/2024 1:48 PM EST) Anatomical Region Laterality Modality Breast Bilateral Mammography 04/12/2024 1:48 PM EST Narrative 04/17/2024 12:38 PM EST [facility] [address] [place] [address] Mammography Report Signed Patient: Nuvia Fay MR #: [id number] : 1960 Acct:[id number] Age/Sex: 63 / F ADM Date: 04/12/24 Loc: HO.MAMMO Attending Dr: Monica Lozano CNM Ordering Physician: Monica Lozano CNM Results: 2Beni gn Findings Date of Service: 04/12/24 Follow Up: 1 Year From [facility] Mammogram Procedure(s): MM tomosynthesis screening BI Accession Number(s): [id number] cc: Monica Lozano CNM; ANTHONY RUIZ NP [...] by: Cherrie Roberts DO 04/17/2024 12:35 PM [facility] Dictated By: Cherrie Roberts DO Signed By: <Electronically signed by Cherrie Roberts DO in OV> 04/17/24 1235 DD/ 1348 TD/TT: 04/12/24 1405 Rn Building: Procedure Note Donotuseinterpreter, Image - 04/17/2024 [facility] [address] [place] [address] Mammography Report Signed Patient: Nuvia Fay EMR #: [id number] : 1960cct:[id number] Age/Sex: 63 / FADM Date: 04/12/24 Loc: HO.MAMMO Attending Dr: Monica Lozano CNM Ordering Physician: Monica LozanoMResults: 2Beni gn Findings Date of Service: 04/12/24Follow Up: 1 Year From Orig inal Mammogram Procedure(s): MM tomosynthesis screening BI Accession Number(s): [id number] cc: Monica Lozano CNM; ANTHONY RUIZ NP [...] 04/17/24 1235 DD/ 1348 TD/TT: 04/12/24 1405 Rn Building: [facility] External Provider IMG BI PROCEDURES Edited Result - Final * Albumin, Random Urine W/Creatinine (01/02/2024 8:44 AM EST) Creatinine, Urine 47.20 mg/dL [facility] Microalbumin Urine 7.0 mg/L [facility] Microalbum Creatinine Ratio Ur 14.8 <30 ug/mg cr [facility] Comment:Albumin/Creatinine R atio Reference Ranges: Normal: < 30 ug/mg creatinine Microalbuminuria: 30 - 300 ug/mg creatinineClinical Albuminuria: > 300 ug/mg creatinine Urine (Urine, Random) 01/02/2024 8:44 AM EST 01/02/2024 11:09 AM EST Anthony Ruiz [facility] URINE ORDERABLES Final Resul t [facility] [address] [place] [phone] * (ABNORMAL) Hm Colonoscopy (12/27/2021) Colonoscopy Abnormal(A ) Normal Historical Provider HEALTH MAINTENANCE Final Result * HPV E6/E7 RFLX ALFRED 16 18/45 (05/09/2020 11:19 AM EDT) HPV mRNA E6/E7 rflx Not Detected Not Detected [facility] Comment: Methodology: Manager Forensic-Mediated Amplification This assay detects E6/E7 viral messenger RNA (mRNA) from 14 high-risk HPV types (16,18,31,33,35,39,45,51,52,56,58,59,66,68). The analytical performance characteristics of this assay have been determined by [employer]. The modifications have not been cleared or approved by the FDA. This assay has been validated pursuant to the CLIA regulations and is used for clinical purposes. For additional information, please refer to http://education.Firecomms/faq/OKQ200h5 (This link if provided for information/ educational purposes only.) THIS TEST WAS PERFORMED AT: [facility] [address] [place] [address] [address],[place] [address] HERNAN WARREN MD 05/09/2020 11:1 9 AM EDT Yohana Lu HISTORICAL/NON ORDERABLE LABS Fi nal Result [facility] [address] from Last 3 Months or Most Recently Relevant to Health Maintenance Insurance [facility] < 65 RAYMUNDO BARRERA [id number] DENTAL - [facility] Care Teams Clamp Forklift Operator Relationship Specialty Start Date End Date Anthony Ruiz ANP [address] [place], [place] PCP - General Family Medicine 09/23/19 Yuri Pierre, MikeD [address] [place] [address] Pharmacist Internal Medicine 05/05/24 Basilio Hall MD [address] [place], [place] Cardiology 05/17/24 Ron Preciado MD [address] [place] [address] Pulmonary Disease 05/17/24
--- OUTSIDE RECORDS SUMMARY | 2024-12-13 12:56 | XMS_ITS | Encounter Summary ---
Author Organization [employer] Address [address] [facility] [address] [place] [address] Care Team Providers Care Public Accountant Name Role Phone Sariah Vickers Primary Care Provider Yuri Pierre PharmD Unavailable [phone] Basilio Hall MD Unavailable [phone] Ron Preciado MD Unavailable [phone] Encounter Details Date Type Department Care Team (Late st Contact Info) Description 10/20/2024 Results Follow-Up [facility] [address] [place] [address] Sariah Vickers ANP [address] [place] [address] Prothrombin Time-INR, C-reactive Protein, Amylase, Additional followed-up [...] 01/07/2025 9:30 AM EST Clinical Support [address] [address] Azeb Hall RN [address] [place] [address] 01/11/2025 1:00 PM EST Office Visit [address] [address] Sariah Vickers ANP [address] [place] [address] 02/03/2025 11:00 AM EST Medication Management [address] [address] Yuri Pierre PharmD [address] [place] [address] documented as of this encounter Goals Goal Patient Goal Type Associated Problems Recent Progress Patient-Stated? Author Blood Pressure < 140/90 Blood Pressure 133/91(2024 9:51 AM EDT) No Piers-Gambl eVeronicasa, PharmD Record [...] as of this encounter Care Teams Public Accountant Relationship Specialty Start Date End Date Sariah Vickers ANP [address] [place] [address] PCP - General Family Medicine 09/23/19 Yuri Pierre, PharmD [address] [place] [address] Pharmacist Internal Medicine 05/05/24 Basilio Hall MD [address] [place] [address] Cardiology 05/17/24 Ron Preciado MD [address] [place] [address] Pulmonary Disease 05/17/24 documented as of this encounter
--- OUTSIDE RECORDS SUMMARY | 2024-12-13 12:56 | XMS_ITS | Encounter Summary ---
Author Organization [employer] Address [address] [facility] [address] [place] [address] Care Team Providers Care Cuff Setter Lockstitch Name Role Phone Sariah Vickers Primary Care Provider [phone] Yuri Pierre PharmD Unavailable [phone] Basilio Hall MD Unavailable [phone] Ron Preciado MD Unavailable [phone] Reason for Visit * Reason Comments Med Refill Encounter Details Date Type Department Care Team (Late st Contact Info) Description 01/06/2024 Refill [facility] [address] [place] [address] Sariah Vickers ANP [address] [place] [address] Cervicalgia Social History Tobacco Use Types Packs/Day [...] Description 01/07/2025 9:30 AM EST Clinical Support [address] [address] Azeb Hall RN [address] [place] [address] 01/11/2025 1:00 PM EST Office Visit [address] [address] Sariah Vickers ANP [address] [place] [address] 02/03/2025 11:00 AM EST Medication Management [address] [address] Yuri Pierer, MikeD [address] [place] [address] documented as of this encounter Goals Goal [...] documented as of this encounter Care Teams Cuff Setter Lockstitch Relationship Specialty Start Date End Date Sariah Vickers ANP [address] [place] [address] PCP - General Family Medicine 09/23/19 Yuri Pierre, MikeD [address] [place] [address] Pharmacist Internal Medicine 05/05/24 Basilio Hall MD [address] [place] [address] Cardiology 05/17/24 Ron Preciado MD [address] [place] [address] Pulmonary Disease 05/17/24 documented as of this encounter
--- OUTSIDE RECORDS SUMMARY | 2024-12-13 12:56 | XMS_ITS | Encounter Summary ---
Author Organization [employer] Address 75 [facility] 7t [place] [address] Care Team Providers Care Creeler Name Role Phone Sariah Vickers Primary Care Provider [phone] Yuri Pierre PharmD Unavailable [phone] Basilio Hall MD Unavailable [phone] Ron Preciado MD Unavailable [phone] Reason for Visit * Reason Comments Med Refill Encounter Details Date Type Department Care Team (Late st Contact Info) Description 12/17/2023 Refill [facility] MEDICINE [address] [place] [address] Sariah Vickers ANP 230 [place] [address] Chronic SI joint pain Social History Tobacco [...] 01/07/2025 9:30 AM EST Clinical Support [address] [address] Azeb Hall, MARTIN 505 [place] [address] 01/11/2025 1:00 PM EST Office Visit [address] [address] Sariah Vickers ANP [address] [place] [address] 02/03/2025 11:00 AM EST Medication Management [address] [address] Yuri Pierre, MikeD [address] [place] [address] documented as of this encounter Goals Goal Patient Goal Type Associated Problems Recent Progress Patient-Stated? Author Blood Pressure < 140/90 Blood Pressure 133/91(2024 9:51 AM EDT) No Aida Ragland PharmBaer Record Your Blood Sugar As Directed General [...] documented as of this encounter Care Teams Creeler Relationship Specialty Start Date End Date Sariah Vickers ANP 230 [place] [address] PCP - General Family Medicine 09/23/19 Yuri Pierre, MikeD 230 [place] [address] Pharmacist Internal Medicine 05/05/24 Basilio Hall MD [address] [place] [address] Cardiology 05/17/24 Rno Preciado MD [address] [place] [address] Pulmonary Disease 05/17/24 documented as of this encounter
--- OUTSIDE RECORDS SUMMARY | 2024-12-13 12:56 | XMS_ITS | Encounter Summary ---
Author Organization [employer] Address 75 [facility] 7t [place] [address] Care Team Providers Care Beauty Consultant Name Role Phone Sariah Vickers Primary Care Provider [phone] Yuri Pierre PharmD Unavailable [phone] Basilio aHll MD Unavailable [phone] Ron Preciado MD Unavailable [phone] Reason for Visit * Reason Comments Med Refill Encounter Details Date Type Department Care Team (Late st Contact Info) Description 12/19/2022 Refill [facility] MEDICINE 230 [place] [address] Sariah Vickers ANP 230 [place] [address] Vertigo Social History Tobacco Use Types Packs/Day [...] 01/07/2025 9:30 AM EST Clinical Support [address] [address] Azeb Hall RN 505 [place] [address] 01/11/2025 1:00 PM EST Office Visit [address] [address] Sariah Vickers ANP [address] [place] [address] 02/03/2025 11:00 AM EST Medication Management [address] [address] Yuri Pierre, MikeD [address] [place] [address] documented as of this encounter Goals Goal [...] giddiness documented in this encounter Care Teams Beauty Consultant Relationship Specialty Start Date End Date Sariah Vickers ANP 230 [place] [address] PCP - General Family Medicine 09/23/19 Yuri Pierre, MikeD 230 [place] [address] Pharmacist Internal Medicine 05/05/24 Basilio Hall MD [address] [place] [address] 3385340 Cardiology 05/17/24 Ron Preciado MD [address] [place] [address] Pulmonary Disease 05/17/24 documented as of this encounter
--- OUTSIDE RECORDS SUMMARY | 2024-12-13 12:56 | XMS_ITS | Encounter Summary ---
Author Organization [employer] Address 75 [facility] 7t [place] [address] Care Team Providers Care Turn 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 Name Role Phone Sariah Vickers Primary Care Provider [phone] Yuri Pierre PharmD Unavailable [phone] Basilio Hall MD Unavailable [phone] Ron Preciado MD Unavailable [phone] Reason for Visit * Reason Comments Med Refill Encounter Details Date Type Department Care Team (Late st Contact Info) Description 11/14/2023 Refill [facility] MEDICINE 230 [place] [address] Sariah Vickers ANP 230 [place] [address] Neck pain Social History Tobacco Use Types [...] 01/07/2025 9:30 AM EST Clinical Support [address] [address] Azeb Hall, MARTIN 505 [place] [address] 01/11/2025 1:00 PM EST Office Visit [address] [address] Sariah Vickers ANP [address] [place] [address] 02/03/2025 11:00 AM EST Medication Management [address] [address] Yuri Pierre, MikeD [address] [place] [address] documented as of this encounter Goals Goal [...] documented as of this encounter Care Teams Turn 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 Relationship Specialty Start Date End Date Sariah Vickers ANP 230 [place] [address] PCP - General Family Medicine 09/23/19 Yuri Pierre, MikeD [address] [place] [address] Pharmacist Internal Medicine 05/05/24 Basilio Hall MD 596 [place] [address] Cardiology 05/17/24 Ron Preciado MD [address] [place] [address] Pulmonary Disease 05/17/24 documented as of this encounter
--- OUTSIDE RECORDS SUMMARY | 2024-12-13 12:56 | XMS_ITS | Encounter Summary ---
Author Organization [employer] Address 75 [facility] 7t [place] [address] Care Team Providers Care Terrazzo Mechanic Helper Name Role Phone Sariah Vickers Primary Care Provider [phone] Yuri Pierre PharmD Unavailable [phone] Basilio Hall MD Unavailable [phone] Ron Preciado MD Unavailable [phone] Reason for Visit * Reason Comments Med Refill Encounter Details Date Type Department Care Team (Late st Contact Info) Description 11/24/2023 Refill [facility] MEDICINE 230 [place] [address] Sariah Vickers ANP 230 [place] [address] Vertigo Social History Tobacco Use Types Packs/Day [...] 01/07/2025 9:30 AM EST Clinical Support [address] [address] Azeb Hall, MARTIN 505 [place] [address] 01/11/2025 1:00 PM EST Office Visit [address] [address] Sariah Vickers ANP [address] [place] [address] 02/03/2025 11:00 AM EST Medication Management [address] [address] Yuri Pierre, MikeD [address] [place] [address] documented as of this encounter Goals Goal [...] as of this encounter Care Teams Terrazzo Mechanic Helper Relationship Specialty Start Date End Date Sariah Vickers ANP 230 [place] [address] PCP - General Family Medicine 09/23/19 Yuri Pierre, MikeD [address] [place] [address] Pharmacist Internal Medicine 05/05/24 Basilio Hall MD 596 [place] [address] Cardiology 05/17/24 Ron Preciado MD [address] [place] [address] Pulmonary Disease 05/17/24 documented as of this encounter
--- OUTSIDE RECORDS SUMMARY | 2024-12-13 12:56 | XMS_ITS | Encounter Summary ---
Author Organization [employer] Address 75 [facility] 7t [place] [address] Care Team Providers Care Swing Ride Operator Name Role Phone Sariah Vickers Primary Care Provider [phone] Yuri Pierre PharmD Unavailable [phone] Basilio Hall MD Unavailable [phone] Ron Preciado MD Unavailable [phone] Reason for Visit * Reason Onset Date Comments Referral 08/02/2024 Encounter Details Date Type Department Care Team (Late st Contact Info) Description 08/02/2024 Telephone [facility] MEDICINE [address] [place], [place] [phone] Sariah Vickers ANP 230 [place], [place] [phone] Referral Social History Tobacco Use Types Packs/Day [...] for vertigo therapy. Please contact pt at [phone]. (Syrian Speaker) documented in this encounter Plan of Treatment Upcoming Encounters Date Type Department Care Team ([facility] st Contact Info) Description 01/07/2025 9:30 AM EST Clinical Support [facility] MEDICINE [address] [place] [address] Azeb Hall, MARTIN 505 [place] [address] 01/11/2025 1:00 PM EST Office Visit [address] [address] Sariah Vickers ANP 230 [place] [address] 02/03/2025 11:00 AM EST Medication Management [facility] [address] [place] [address] Yuri Pierre, Dileep 230 [place] [address] documented as of this encounter Goals Goal [...] documented as of this encounter Care Teams Swing Ride Operator Relationship Specialty Start Date End Date Sariah Vickers ANP [address] [place] [address] PCP - General Family Medicine 09/23/19 Yuri Pierre, PharmD [address] [place] [address] Pharmacist Internal Medicine 05/05/24 Basilio Hall MD 596 [place] [address] Cardiology 05/17/24 Ron Preciado MD [address] [place] [address] Pulmonary Disease 05/17/24 documented as of this encounter
--- OUTSIDE RECORDS SUMMARY | 2024-12-13 12:56 | XMS_ITS | Encounter Summary ---
Author Organization [employer] Address 75 [facility] 7t [place] [address] Care Team Providers Care Veneer Sheet Repairer Name Role Phone Sariah Vickers Primary Care Provider [phone] Yuri Pierre PharmD Unavailable [phone] Basilio Hall MD Unavailable [phone] Ron Preciado MD Unavailable [phone] Reason for Visit * Reason Comments Med Refill Encounter Details Date Type Department Care Team (Late st Contact Info) Description 12/27/2022 Refill [facility] MEDICINE 230 [place] [address] Sariah Vickers ANP 230 [place] [address] Neck pain Social History Tobacco Use Types [...] 01/07/2025 9:30 AM EST Clinical Support [address] [address] Azeb Hall RN 505 [place] [address] 01/11/2025 1:00 PM EST Office Visit [address] [address] Sariah Vickers ANP [address] [place] [address] 02/03/2025 11:00 AM EST Medication Management [address] [address] Yuri Pierre, MikeD [address] [place] [address] documented as of this encounter Goals Goal [...] Cervicalgia documented in this encounter Care Teams Veneer Sheet Repairer Relationship Specialty Start Date End Date Sariah Vickers ANP 230 [place] [address] PCP - General Family Medicine 09/23/19 Yuri Pierre, MikeD 230 [place], [place] [phone] Pharmacist Internal Medicine 05/05/24 Basilio Hall MD 596 [place], [place] [phone] Cardiology 05/17/24 Ron Preciado MD [address] [place] [address] Pulmonary Disease 05/17/24 documented as of this encounter
--- OUTSIDE RECORDS SUMMARY | 2024-12-13 12:56 | XMS_ITS | Encounter Summary ---
Author Organization [employer] Address 75 [facility] 7t [place] [address] Care Team Providers Care Language Asst Name Role Phone Sariah Vickers KAYLEE Primary Care Provider [phone] Yuri Pierre PharmD Unavailable [phone] Basilio Hall MD Unavailable [phone] Ron Preciado MD Unavailable [phone] Reason for Visit * Reason Comments Med Refill Encounter Details Date Type Department Care Team (Late st Contact Info) Description 10/04/[address] [facility] MED & PEDS [address] [place] [address] Zakia Uriostegui, HAND PICKER 230 [place] [address] Type 2 diabetes mellitus with hyperglycemia (CMS/HCC) [...] 01/07/2025 9:30 AM EST Clinical Support [address] [address] Azeb Hall, RN 505 [place] [address] 01/11/2025 1:00 PM EST Office Visit [facility] MEDICINE [address] [place] [address] Sariah Vickers, ANP [address] [place] [address] 02/03/2025 11:00 AM EST Medication Management [address] [address] Yuri Pierre, PharmD [address] [place] [address] documented as of this encounter Goals Goal [...] documented as of this encounter Care Teams Language Asst Relationship Specialty Start Date End Date Sariah Vickers ANP 230 [place] [address] PCP - General Family Medicine 09/23/19 Yuri Pierre PharmD 230 [place] [address] Pharmacist Internal Medicine 05/05/24 Basilio Hall MD 596 [place] [address] Cardiology 05/17/24 Ron Preciado MD [address] [place] [address] Pulmonary Disease 05/17/24 documented as of this encounter
--- OUTSIDE RECORDS SUMMARY | 2024-12-13 12:56 | XMS_ITS | Clinical Summary ---
Author Organization [address] [facility] Address 175 [place] [address] Phone Care Team Providers Care Record Changer Assembler Name Role Phone Sariah Vickers NP Primary Care Provider [phone] Social History Tobacco Use Types Packs/Day Years [...] age to complete this topic Care Teams Record Changer Assembler Relationship Specialty Start Date End Date Sariah Vickers NP [address] [place] [phone] PCP - General 12/03/23
--- OUTSIDE RECORDS SUMMARY | 2024-12-13 12:56 | XMS_ITS | Encounter Summary ---
Author Organization [employer] Address 75 [facility] 7t [place] [address] Care Team Providers Care Hot Blaster Name Role Phone Sariah Vickers Primary Care Provider [phone] Yuri Pierre PharmD Unavailable [phone] Basilio Hall MD Unavailable [phone] Ron Preciado MD Unavailable [phone] Reason for Visit * Reason Comments Med Refill Encounter Details Date Type Department Care Team (Late st Contact Info) Description 01/06/2024 Refill [facility] CH[facility] MED & PEDS [address] [place] [address] Sariah Vickers ANP 230 [place] [address] Cervicalgia Social History Tobacco Use Types Packs/Day [...] Description 01/07/2025 9:30 AM EST Clinical Support [address] [address] Azeb Hall RN 505 [place] [address] 01/11/2025 1:00 PM EST Office Visit [address] [address] Sariah Vickers ANP [address] [place] [address] 02/03/2025 11:00 AM EST Medication Management [address] [address] Yuri Pierre, MikeD [address] [place] [address] documented as of this encounter Goals Goal [...] documented as of this encounter Care Teams Hot Blaster Relationship Specialty Start Date End Date Sariah Vickers ANP 230 [place] [address] PCP - General Family Medicine 09/23/19 Yuri Pierre, MikeD [address] [place] [address] Pharmacist Internal Medicine 05/05/24 Basilio Hall MD [address] [place] [address] Cardiology 05/17/24 Ron Preciado MD [address] [place] [address] Pulmonary Disease 05/17/24 documented as of this encounter
--- OUTSIDE RECORDS SUMMARY | 2024-12-13 12:56 | XMS_ITS | Encounter Summary ---
Author Organization [employer] Address 75 [facility] 7t [place] [address] Care Team Providers Care Trout Farmer Name Role Phone Sariah Vickers Primary Care Provider [phone] Yuri Pierre PharmD Unavailable [phone] Basilio Hall MD Unavailable [phone] Ron Preciado MD Unavailable [phone] Reason for Visit * Reason Onset Date Comments Med Refill 01/09/2024 Encounter Details Date Type Department Care Team (Late st Contact Info) Description 01/09/[address] [facility] MEDICINE 230 [place] [address] Sariah Vickers ANP 230 [place], [place] [phone] Med Refill Social History Tobacco Use Types [...] 01/07/2025 9:30 AM EST Clinical Support [address] [address] Azeb Hall, MARTIN 505 [place] [address] 01/11/2025 1:00 PM EST Office Visit [address] [address] Sariah Vickers ANP [address] [place] [address] 02/03/2025 11:00 AM EST Medication Management [address] [address] Yuri Pierre, MikeD [address] [place] [address] documented as of this encounter Goals Goal [...] documented as of this encounter Care Teams Trout Farmer Relationship Specialty Start Date End Date Sariah Vickers ANP 230 [place] [address] PCP - General Family Medicine 09/23/19 Yuri Pierre, MikeD [address] [place] [address] Pharmacist Internal Medicine 05/05/24 Basilio Hall MD [address] [place] [address] Cardiology 05/17/24 Ron Preciado MD [address] [place] [address] Pulmonary Disease 05/17/24 documented as of this encounter
--- OUTSIDE RECORDS SUMMARY | 2024-12-13 12:56 | XMS_ITS | Encounter Summary ---
Author Organization [employer] Address 75 [facility] 7t [place] [address] Care Team Providers Care Cuff Maker Name Role Phone Sariah Vickers Primary Care Provider [phone] Yuri Pierre PharmD Unavailable [phone] Basilio Hall MD Unavailable [phone] Ron Preciado MD Unavailable [phone] Reason for Visit * Reason Comments Med Refill Encounter Details Date Type Department Care Team (Late st Contact Info) Description 10/24/2023 Refill [facility] MEDICINE 230 [place] [address] Sariah Vickers ANP 230 [place] [address] Neck pain Social History Tobacco Use Types [...] 01/07/2025 9:30 AM EST Clinical Support [address] [address] Azeb Hall, MARTIN 505 [place] [address] 01/11/2025 1:00 PM EST Office Visit [address] [address] Sariah Vickers ANP [address] [place] [address] 02/03/2025 11:00 AM EST Medication Management [address] [address] Yuri Pierre, MikeD [address] [place] [address] documented as of this encounter Goals Goal [...] as of this encounter Care Teams Cuff Maker Relationship Specialty Start Date End Date Sariah Vickers ANP 230 [place] [address] PCP - General Family Medicine 09/23/19 Yuri Pierre, MikeD [address] [place] [address] Pharmacist Internal Medicine 05/05/24 Basilio Hall MD 596 [place] [address] Cardiology 05/17/24 Ron Preciado MD [address] [place] [address] Pulmonary Disease 05/17/24 documented as of this encounter
--- OUTSIDE RECORDS SUMMARY | 2024-12-13 12:56 | XMS_ITS | Encounter Summary ---
Author Organization [employer] Address 75 [facility] 7t [place] [address] Care Team Providers Care Supervisor Stave Cutting Name Role Phone Sariah Vickers Primary Care Provider Yuri Pierre PharmD Unavailable [phone] Basilio Hall MD Unavailable [phone] Ron Preciado MD Unavailable [phone] Reason for Visit * Reason Onset Date Comments Nurse Triage 12/24/2022 Encounter Details Date Type Department Care Team (Late st Contact Info) Description 12/24/2022 Telephone [facility] MEDICINE 230 [place] [address] Sariah Vickers ANP 230 [place] [address] Nurse Triage Social History Tobacco Use Types [...] - 12/24/2022 1:11 PM EST Called pt.via [employer] workers compensation claims specialist [phone] Benjamin. Pt. States that she wants to [...] regimen and possible referral to a new Dehydration Plant Operator due to pt. Not having jeremie [...] accepted this outcome Please contact pt at [phone] documented in this encounter Plan of Treatment Upcoming Encounters Date Type Department Care Team (Late st Contact Info) Description 01/07/2025 9:30 AM EST Clinical Support [address] [address] Azeb Hall, RN 505 [place] [address] 01/11/2025 1:00 PM EST Office Visit [address] [address] Sariah Vickers ANP [address] [place] [address] 02/03/2025 11:00 AM EST Medication Management [address] [phone] Yuri Pierre PharmD [address] [place] [address] documented as of this encounter Goals Goal [...] filedocumented in this encounter Care Teams Supervisor Stave Cutting Relationship Specialty Start Date End Date Sariah Vickers ANP [address] [place] [address] PCP - General Family Medicine 09/23/19 Yuri Pierre, PharmD [address] [place] [address] Pharmacist Internal Medicine 05/05/24 Basilio Hall MD 596 [place] [address] Cardiology 05/17/24 Ron Preciado MD [address] [place] [address] Pulmonary Disease 05/17/24 documented as of this encounter
--- OUTSIDE RECORDS SUMMARY | 2024-12-13 12:56 | XMS_ITS | Encounter Summary ---
Author Organization [employer] Address 75 [facility] 7t [place] [address] Care Team Providers Care Motion Picture Camera Lens Technician Name Role Phone Sariah Vickers Primary Care Provider [phone] Yuri Pierre PharmD Unavailable [phone] Basilio Hall MD Unavailable [phone] Ron Preciado MD Unavailable [phone] Reason for Visit * Reason Comments Med Refill Encounter Details Date Type Department Care Team (Late st Contact Info) Description 01/04/2024 Refill [facility] CH[facility] MED & PEDS [address] [place] [address] Sariah Vickers ANP 230 [place] [address] Cervicalgia Social History Tobacco Use Types Packs/Day [...] 01/07/2025 9:30 AM EST Clinical Support [address] [address] Azeb Hall RN 505 [place] [address] 01/11/2025 1:00 PM EST Office Visit [address] [address] Sariah Vickers ANP [address] [place] [address] 02/03/2025 11:00 AM EST Medication Management [address] [address] Yuri Pierre, MikeD [address] [place] [address] documented as of this encounter Goals Goal [...] of this encounter Care Teams Motion Picture Camera Lens Technician Relationship Specialty Start Date End Date Sariah Vickers ANP 230 [place] [address] PCP - General Family Medicine 09/23/19 Yuri Pierre, MikeD [address] [place] [address] Pharmacist Internal Medicine 05/05/24 Basilio Hall MD [address] [place] [address] Cardiology 05/17/24 Ron Preciado MD [address] [place] [address] Pulmonary Disease 05/17/24 documented as of this encounter
--- OUTSIDE RECORDS SUMMARY | 2024-12-13 12:57 | XMS_ITS | Encounter Summary ---
Author Organization [employer] Address 75 [facility] 7t [place] [address] Care Team Providers Care Window Cleaner Name Role Phone Sariah Vickers Primary Care Provider [phone] Yuri Pierre PharmD Unavailable [phone] Basilio Hall MD Unavailable [phone] Ron Preciado MD Unavailable [phone] Reason for Visit * Reason Comments Med Refill Encounter Details Date Type Department Care Team (Late st Contact Info) Description 08/14/2022 Refill [facility] CH[facility] MED & PEDS [address] [place] [address] Sariah Vickers ANP 230 [place] [address] Severe persistent asthma without complication Social History [...] Description 01/07/2025 9:30 AM EST Clinical Support [address] [address] Azeb Hlal, RN 505 [place] [address] 01/11/2025 1:00 PM EST Office Visit [address] [address] Sariah Vickers ANP [address] [place] [address] 02/03/2025 11:00 AM EST Medication Management [address] [address] Yuri Pierre, PharmD [address] [place] [address] documented as of this encounter Visit Diagnoses Diagnosis Severe persistent asthma without complication (HCC) documented in this encounter Care Teams Window Cleaner Relationship Specialty Start Date End Date Sariah Vickers ANP [address] [place] [address] PCP - General Family Medicine 09/23/19 Yuri Pierre, PharmD [address] [place] [address] Pharmacist Internal Medicine 05/05/24 Basilio Hall MD 596 [place] [address] Cardiology 05/17/24 Ron Preciado MD [address] [place] [address] Pulmonary Disease 05/17/24 documented as of this encounter
--- OUTSIDE RECORDS SUMMARY | 2024-12-13 12:57 | XMS_ITS | Encounter Summary ---
Author Organization [employer] Address [address] [facility] 7t [place] [address] Care Team Providers Care Channeling Machine Runner Name Role Phone Sariah Vickers Primary Care Provider [phone] Yuri Pierre PharmD Unavailable [phone] Basilio Hall MD Unavailable [phone] Ron Preciado MD Unavailable [phone] Reason for Visit * Reason Comments Med Refill Encounter Details Date Type Department Care Team (Late st Contact Info) Description 03/07/2023 Refill [facility] 230 [place] [address] Sariah Vickers ANP 230 [place] [address] Vertigo Social History Tobacco Use Types Packs/Day [...] Description 01/07/2025 9:30 AM EST Clinical Support [address] [address] Azeb Hall RN 505 [place] [address] 01/11/2025 1:00 PM EST Office Visit [address] [address] Sariah Vickers ANP [address] [place] [address] 02/03/2025 11:00 AM EST Medication Management [address] [address] Yuri Pierre, MikeD [address] [place] [address] documented as of this encounter Goals Goal [...] giddiness documented in this encounter Care Teams Channeling Machine Runner Relationship Specialty Start Date End Date Sariah Vickers ANP 230 [place] [address] PCP - General Family Medicine 09/23/19 Yuri Pierre, MikeD 230 [place] [address] Pharmacist Internal Medicine 05/05/24 Basilio Hall MD [address] [place] [address] [id number] Cardiology 05/17/24 Ron Preciado MD [address] [place] [address] Pulmonary Disease 05/17/24 documented as of this encounter
--- OUTSIDE RECORDS SUMMARY | 2024-12-13 12:57 | XMS_ITS | Encounter Summary ---
Author Organization [employer] Address 75 [facility] 7t [place] [address] Care Team Providers Care Windows Server Support Technician Name Role Phone Sariah Vickers Primary Care Provider [phone] Yuri Pierre PharmD Unavailable [phone] Basilio Hall MD Unavailable [phone] Ron Preciado MD Unavailable [phone] Reason for Visit * Reason Comments Med Refill Encounter Details Date Type Department Care Team (Late st Contact Info) Description 07/10/[address] [facility] 230 [place] [address] Sariah Vickers ANP 230 [place] [address] Vertigo Social History Tobacco Use Types Packs/Day [...] 01/07/2025 9:30 AM EST Clinical Support [address] [address] Azeb Hall, RN 505 [place] [address] 01/11/2025 1:00 PM EST Office Visit [address] [address] Sariah Vickers ANP [address] [place] [address] 02/03/2025 11:00 AM EST Medication Management [address] [address] Yuri Pierre, PharmD [address] [place] [address] documented as of this encounter Visit Diagnoses Diagnosis Vertigo Dizziness and giddiness documented in this encounter Care Teams Windows Server Support Technician Relationship Specialty Start Date End Date Sariah Vickers ANP [address] [place] [address] PCP - General Family Medicine 09/23/19 Yuri Pierre, PharmD [address] [place] [address] Pharmacist Internal Medicine 05/05/24 Basilio Hall MD 596 [place] [address] Cardiology 05/17/24 Ron Preciado MD [address] [place] [address] Pulmonary Disease 05/17/24 documented as of this encounter
--- OUTSIDE RECORDS SUMMARY | 2024-12-13 12:57 | XMS_ITS | Encounter Summary ---
Author Organization [employer] Address 75 [facility] 7t [place] [address] Care Team Providers Care Production Statistical Clerk Name Role Phone Sariah Vickers Primary Care Provider [phone] Yuri Pierre PharmD Unavailable [phone] Basilio Hall MD Unavailable [phone] Ron Preciado MD Unavailable [phone] Reason for Visit * Reason Onset Date Comments Med Refill 03/04/2023 Encounter Details Date Type Department Care Team (Late st Contact Info) Description 03/04/2023 Telephone [facility] MED[facility] 230 [place], [place] [phone] Sariah Vickers ANP 230 [place], [place] [phone] Med Refill Social History Tobacco Use Types [...] 50 MG tablet To be sent to: [facility] [place], [place] - [address] [address] documented in this encounter Plan of Treatment Upcoming Encounters Date Type Department Care Team (Late st Contact Info) Description 01/07/2025 9:30 AM EST Clinical Support [address] [address] Azeb Hall RN 505 [place] [address] 01/11/2025 1:00 PM EST Office Visit [address] [address] Sariah Vickers, KAYLEE [address] [place] [address] 02/03/2025 11:00 AM EST Medication Management [address] [address] Yuri Pierre, PharmD [address] [place] [address] documented as of this encounter Goals Goal Patient Goal Type Associated Problems Recent Progress Patient-Stated? Author Blood Pressure < 140/90 Blood Pressure 133/91(2024 9:51 AM EDT) No PhanisAida Cheng, PharmD Record Your Blood Sugar As Directed General No Phanis-Gambl Veronica urbinasa, PharmD Hemoglobin A1c < 7 Result Component 6.6( 1:54 PM EDT) No PhanisAida Cheng, PharmD documented as of this encounter Visit Diagnoses Not on filedocumented in this encounter Care Teams Production Statistical Clerk Relationship Specialty Start Date End Date Sariah Vickers ANP 230 [place] [address] PCP - General Family Medicine 09/23/19 Yuri Pierre PharmD 230 [place] [address] Pharmacist Internal Medicine 05/05/24 Basilio Hall MD 596 [place] [address] Cardiology 05/17/24 Ron Preciado MD [address] [place] [address] Pulmonary Disease 05/17/24 documented as of this encounter
--- OUTSIDE RECORDS SUMMARY | 2024-12-13 12:57 | XMS_ITS | Encounter Summary ---
Author Organization [employer] Address 75 [facility] 7t [place] [address] Care Team Providers Care Waiter/Waitress Captain Name Role Phone Sariah Vickers Primary Care Provider [phone] Yuri Pierre PharmD Unavailable [phone] Basilio Hall MD Unavailable [phone] Ron Preciado MD Unavailable [phone] Reason for Visit * Reason Comments Med Refill Encounter Details Date Type Department Care Team (Late st Contact Info) Description 07/17/2022 Refill [facility] MEDICINE 230 [place] [address] Sariah Vickers ANP 230 [place] [address] Neck pain Social History Tobacco Use Types [...] 01/07/2025 9:30 AM EST Clinical Support [address] [address] Azeb Hall, RN 505 [place] [address] 01/11/2025 1:00 PM EST Office Visit [address] [address] Sariah Vickers ANP [address] [place] [address] 02/03/2025 11:00 AM EST Medication Management [address] [address] Yuri Pierre, Dileep [address] [place] [address] documented as of this encounter Visit Diagnoses Diagnosis Neck pain Cervicalgia documented in this encounter Care Teams Waiter/Waitress Captain Relationship Specialty Start Date End Date Sariah Vickers ANP [address] [place] [address] PCP - General Family Medicine 09/23/19 Yuri Pierre, PharmD [address] [place] [address] Pharmacist Internal Medicine 05/05/24 Basilio Hall MD 596 [place] [address] Cardiology 05/17/24 Ron Preciado MD [address] [place] [address] Pulmonary Disease 05/17/24 documented as of this encounter
--- OUTSIDE RECORDS SUMMARY | 2024-12-13 12:57 | XMS_ITS | Encounter Summary ---
Author Organization [employer] Address 75 [facility] 7t [place] [address] Care Team Providers Care Chartered Financial Analyst Name Role Phone Sariah Vickers Primary Care Provider [phone] Yuri Pierre PharmD Unavailable [phone] Basilio Hall MD Unavailable [phone] Ron Preciado MD Unavailable [phone] Reason for Visit * Reason Onset Date Comments Appointment Request 09/03/2024 Encounter Details Date Type Department Care Team (Late st Contact Info) Description 09/03/2024 Telephone [facility] MEDICINE 230 [place] [address] Sariah Vickers ANP 230 [place], [place] [phone] Appointment Request Social History Tobacco Use Types [...] when making the apt. Contact pt at [phone] documented in this encounter Plan of Treatment Upcoming Encounters Date Type Department Care Team ([facility] st Contact Info) Description 01/07/2025 9:30 AM EST Clinical Support [address] [address] Azeb Hall RN 505 [place] [address] 01/11/2025 1:00 PM EST Office Visit [address] [address] Sariah Vickers ANP [address] [place] [address] 02/03/2025 11:00 AM EST Medication Management [address] [place] [address] Yuri Pierre, PharmD 230 [place] [address] documented as of this encounter Goals Goal [...] documented as of this encounter Care Teams Chartered Financial Analyst Relationship Specialty Start Date End Date Sariah Vickers ANP 230 [place] [address] PCP - General Family Medicine 09/23/19 Yuri Pierre, PharmD [address] [place] [address] Pharmacist Internal Medicine 05/05/24 Basilio Hall MD [address] [place] [address] Cardiology 05/17/24 Ron Preciado MD [address] [place] [address] Pulmonary Disease 05/17/24 documented as of this encounter
--- OUTSIDE RECORDS SUMMARY | 2024-12-13 12:57 | XMS_ITS | Encounter Summary ---
Author Organization [employer] Address 75 [facility] 7t [place] [address] Care Team Providers Care Geology Scientist Name Role Phone Sariah Vickers Primary Care Provider [phone] Yuri Pierre PharmD Unavailable [phone] Basilio Hall MD Unavailable [phone] Ron Preciado MD Unavailable [phone] Reason for Visit * Reason Comments Med Refill Encounter Details Date Type Department Care Team (Late st Contact Info) Description 05/09/2023 Refill [facility]INE 230 [place] [address] Sariah Vickers ANP 230 [place] [address] High cholesterol Social History Tobacco Use Types [...] 01/07/2025 9:30 AM EST Clinical Support [address] [address] Azeb Hall RN 505 [place] [address] 01/11/2025 1:00 PM EST Office Visit [address] [address] Sariah Vickers ANP [address] [place] [address] 02/03/2025 11:00 AM EST Medication Management [address] [address] Yuri Pierre, MikeD [address] [place] [address] documented as of this encounter Goals Goal Patient Goal Type Associated Problems Recent Progress Patient-Stated? Author Blood Pressure < 140/90 Blood Pressure 133/91(2024 9:51 AM EDT) No Aida Raglnad PharmD Record Your Blood Sugar As Directed General No Aida Ragland PharmD Hemoglobin A1c < 7 Result Component 6.6( 1:54 PM EDT) Aida Ernst PharmD documented as of this encounter Visit Diagnoses Diagnosis High cholesterol Pure hypercholesterolemia documented in this encounter Care Teams Geology Scientist Relationship Specialty Start Date End Date Sariah Vickers ANP 230 [place] [address] PCP - General Family Medicine 09/23/19 Yuri Pierre, MikeD 230 [place] [address] Pharmacist Internal Medicine 05/05/24 Basilio Hall MD 596 [place], [place] [phone] Cardiology 05/17/24 Ron Preciado MD [address] [place] [address] Pulmonary Disease 05/17/24 documented as of this encounter
--- OUTSIDE RECORDS SUMMARY | 2024-12-13 12:57 | XMS_ITS | Encounter Summary ---
Author Organization [employer] Address 75 [facility] 7t [place] [address] Care Team Providers Care Test Analyst Name Role Phone Sariah Vickers Primary Care Provider [phone] Yuri Pierre PharmD Unavailable [phone] Basilio Hall MD Unavailable [phone] Ron Preciado MD Unavailable [phone] Reason for Visit * Reason Comments Med Refill Encounter Details Date Type Department Care Team (Late st Contact Info) Description 05/23/2024 Refill [facility] [address] [place] [address] Sariah Vickers ANP 230 [place] [address] Cervicalgia Social History Tobacco Use Types Packs/Day [...] 01/07/2025 9:30 AM EST Clinical Support [address] [address] Azeb Hall RN 505 [place] [address] 01/11/2025 1:00 PM EST Office Visit [address] [address] Sariah Vickers ANP [address] [place] [address] 02/03/2025 11:00 AM EST Medication Management [address] [address] Yuri Pierre, MikeD [address] [place] [address] documented as of this encounter Goals Goal [...] documented as of this encounter Care Teams Test Analyst Relationship Specialty Start Date End Date Sariah Vickers ANP 230 [place] [address] PCP - General Family Medicine 09/23/19 Yuri Pierre, MikeD [address] [place] [address] Pharmacist Internal Medicine 05/05/24 Basilio Hall MD [address] [place] [address] Cardiology 05/17/24 Ron Preciado MD [address] [place] [address] Pulmonary Disease 05/17/24 documented as of this encounter
--- OUTSIDE RECORDS SUMMARY | 2024-12-13 12:57 | XMS_ITS | Encounter Summary ---
Author Organization [employer] Address 75 [facility] 7t [place] [address] Care Team Providers Care Media Services Director Name Role Phone Sariah Vickers KAYLEE Primary Care Provider [phone] Yuri Pierre PharmD Unavailable [phone] Basilio Hall MD Unavailable [phone] Ron Preciado MD Unavailable [phone] Reason for Visit * Reason Comments Med Refill Encounter Details Date Type Department Care Team (Late st Contact Info) Description 11/11/2024 Refill [facility] 230 [place] [address] Yogesh Gomez, JHON 230 [place] [address] Social History Tobacco Use Types Packs/Day Years [...] Description 01/07/2025 9:30 AM EST Clinical Support [address] [address] Azeb Hall, MARTIN 505 [place] [address] 01/11/2025 1:00 PM EST Office Visit [address] [address] Sariah Vickers ANP [address] [place] [address] 02/03/2025 11:00 AM EST Medication Management [address] [address] Yuri Pierre, PharmD 230 [place] [address] documented as of this encounter Goals Goal [...] as of this encounter Care Teams Media Services Director Relationship Specialty Start Date End Date Sariah Vickers ANP 230 [place] [address] PCP - General Family Medicine 09/23/19 Yuri Pierre PharmD 230 [place] [address] Pharmacist Internal Medicine 05/05/24 Basilio Hall MD 596 [place] [address] Cardiology 05/17/24 Ron Preciado MD [address] [place] [address] Pulmonary Disease 05/17/24 documented as of this encounter
--- OUTSIDE RECORDS SUMMARY | 2024-12-13 12:57 | XMS_ITS | Encounter Summary ---
Author Organization [employer] Address [address] [facility] 7t [place] [address] Care Team Providers Care Heat Reader Name Role Phone Sariah Vickers Primary Care Provider [phone] Yuri Pierre PharmD Unavailable [phone] Basilio Hall MD Unavailable [phone] Ron Preciado MD Unavailable [phone] Reason for Visit * Reason Onset Date Comments Med Refill Durable Medical Equipment 07/15/2023 Foam M attress/Raised Toilet Seat Encounter Details Date Type Department Care Team (Late st Contact Info) Description 07/15/2023 Refill [facility] MEDICINE 230 [place], [place] [phone] Sariah Vickers ANP 230 [place] [address] Neck pain Social History Tobacco Use Types [...] request sent via email by [facility] Deer Farmer Arlin Baker. Please Advise. Good morning, Our [...] Upcoming Encounters Date Type Department Care Team ([facility] st Contact Info) Description 01/07/2025 9:30 AM EST Clinical Support [address] [address] Azeb Hall, RN 505 [place] [address] 01/11/2025 1:00 PM EST Office Visit [address] [address] Sariah Vickers ANP [address] [place] [address] 02/03/2025 11:00 AM EST Medication Management [address] [address] Yuri Pierre, PharmD [address] [place] [address] documented as of this encounter Goals Goal [...] documented as of this encounter Care Teams Heat Reader Relationship Specialty Start Date End Date Sariah Vickers ANP [address] [place] [address] PCP - General Family Medicine 09/23/19 Yuri Pierre, PharmD [address] [place] [address] Pharmacist Internal Medicine 05/05/24 Basilio Hall MD 596 [place] [address] Cardiology 05/17/24 Ron Preciado MD [address] [place] [address] Pulmonary Disease 05/17/24 documented as of this encounter
--- OUTSIDE RECORDS SUMMARY | 2024-12-13 12:57 | XMS_ITS | Encounter Summary ---
Author Organization [employer] Address 75 [facility] 7t [place] [address] Care Team Providers Care Pressure Supervisor Name Role Phone Sariah Vickers Primary Care Provider Yuri Pierre PharmD Unavailable [phone] Basilio Hall MD Unavailable [phone] Ron Preciado MD Unavailable [phone] Reason for Visit * Reason Comments Med Refill Encounter Details Date Type Department Care Team (Late st Contact Info) Description 05/21/2023 Refill [facility] MEDICINE 230 [place] [address] Sariah Vickers ANP 230 [place] [address] Neck pain Social History Tobacco Use Types [...] AM EST Clinical Support [address] [address] Azeb Hall, RN 505 [place] [address] 01/11/2025 1:00 PM EST Office Visit [address] [address] Sariah Vickers, KAYLEE [address] [place] [address] 02/03/2025 11:00 AM EST Medication Management [address] [address] Yuri Pierre, PharmD [address] [place] [address] documented as of this encounter Goals Goal [...] Cervicalgia documented in this encounter Care Teams Pressure Supervisor Relationship Specialty Start Date End Date Sariah Vickers ANP 230 [place] [address] PCP - General Family Medicine 09/23/19 Yuri Pierre, MikeD 230 [place] [address] Pharmacist Internal Medicine 05/05/24 Basilio Hall MD 596 [place] [address] Cardiology 05/17/24 Ron Preciado MD [address] [place] [address] Pulmonary Disease 05/17/24 documented as of this encounter
--- OUTSIDE RECORDS SUMMARY | 2024-12-13 12:57 | XMS_ITS | Encounter Summary ---
Author Organization [employer] Address 75 [facility] 7t [place] [address] Care Team Providers Care Maintenance Controller Name Role Phone Sariah Vickers Primary Care Provider [phone] Yuri Pierre PharmD Unavailable [phone] Basilio Hall MD Unavailable [phone] Ron Preciado MD Unavailable [phone] Reason for Visit * Reason Onset Date Comments Referral 05/17/2022 Encounter Details Date Type Department Care Team (Late st Contact Info) Description 05/17/[address] [facility] MEDICINE 230 [place] [address] Sariah Vickers ANP 230 [place], [place] [phone] Referral Social History Tobacco Use Types Packs/Day [...] guide to vertigo. Please contact pt at [phone] documented in this encounter Plan of Treatment Upcoming Encounters Date Type Department Care Team (Late st Contact Info) Description 01/07/2025 9:30 AM EST Clinical Support [address] [address] Azeb Hall RN 505 [place] [address] 01/11/2025 1:00 PM EST Office Visit [address] [address] Sariah Vickers ANP [address] [place] [address] 02/03/2025 11:00 AM EST Medication Management [address] [address] Yuri Pierre, PharmD [address] [place] [address] documented as of this encounter Visit Diagnoses Not on filedocumented in this encounter Care Teams Maintenance Controller Relationship Specialty Start Date End Date Sariah Vickers ANP [address] [place] [address] PCP - General Family Medicine 09/23/19 Yuri Pierre, PharmD [address] [place] [address] Pharmacist Internal Medicine 05/05/24 Basilio Hall MD 596 [place] [address] Cardiology 05/17/24 Ron Preciado MD [address] [place] [address] Pulmonary Disease 05/17/24 documented as of this encounter
--- OUTSIDE RECORDS SUMMARY | 2024-12-13 12:57 | XMS_ITS | Encounter Summary ---
Author Organization [employer] Address 75 [facility] 7t [place] [address] Care Team Providers Care Miller Apprentice Name Role Phone Sariah Vickers Primary Care Provider [phone] Yuri Pierre PharmD Unavailable [phone] Basilio Hall MD Unavailable [phone] Ron Preciado MD Unavailable [phone] Reason for Visit * Reason Onset Date Comments Nurse Triage 01/14/2023 Encounter Details Date Type Department Care Team (Late st Contact Info) Description 01/14/2023 Telephone [facility] MEDICINE 230 [place] [address] Sariah Vickers ANP 230 [place] [address] Nurse Triage Social History Tobacco Use Types [...] 01/14/2023 9:26 AM EST Called pt. Via [employer] traffic control technician [id number] Kelly. Pt. States that she has been having a fire feeling in her legs. Its like A burning that goes down her legs . Pt. Unsure if it because of her Diabetes. Pt. Went to [facility] ED for pain on her left side [...] at 10am. Will send note to clinical resident care assistant to have note put in chart . [...] Severe pain now, pt was seen at [facility] on 01/13 for pain in leg. Pt is still symptomatic The caller accepted this outcome Please contact pt at [phone] (reinsurance clerk needed) documented in this encounter Plan of Treatment Upcoming Encounters Date Type Department Care Team (Late st Contact Info) Description 01/07/2025 9:30 AM EST Clinical Support [address] [address] Azeb Hall RN 505 [place] [address] 01/11/2025 1:00 PM EST Office Visit [address] [address] Sariah Vickers ANP [address] [place] [address] 02/03/2025 11:00 AM EST Medication Management [address] [address] Yuri Pierre, PharmD [address] [place] [address] documented as of this encounter Goals Goal Patient Goal Type Associated Problems Recent Progress Patient-Stated? Author Blood Pressure < 140/90 Blood Pressure 133/91(2024 9:51 AM EDT) No Piers-Gambl e, Aida, PharmD Record Your Blood Sugar As Directed General No Piers-Gambl e, Aida, PharmD Hemoglobin A1c < 7 Result Component 6.6( 1:54 PM EDT) No Piers-Gambl e, Aida, PharmD documented as of this encounter Visit Diagnoses Not on filedocumented in this encounter Care Teams Miller Apprentice Relationship Specialty Start Date End Date Sariah Vickers ANP [address] [place] [address] PCP - General Family Medicine 09/23/19 Yuri Pierre, MikeD 230 [place], [place] [phone] Pharmacist Internal Medicine 05/05/24 Basilio Hall MD 596 [place], [place] [phone] Cardiology 05/17/24 Ron Preciado MD [address] [place] [phone] Pulmonary Disease 05/17/24 documented as of this encounter
--- OUTSIDE RECORDS SUMMARY | 2024-12-13 12:57 | XMS_ITS | Encounter Summary ---
Author Organization [employer] Address 75 [facility] 7t [place] [address] Care Team Providers Care Avp Name Role Phone Sariah Vickers Primary Care Provider [phone] Yuri Pierre PharmD Unavailable [phone] Basilio Hall MD Unavailable [phone] Ron Preciado MD Unavailable [phone] Reason for Visit * Reason Comments Med Refill Encounter Details Date Type Department Care Team (Late st Contact Info) Description 07/10/2023 Refill [facility] 230 [place] [address] Sariah Vickers ANP 230 [place], [place] [phone] Chronic SI joint pain Social History Tobacco [...] 01/07/2025 9:30 AM EST Clinical Support [address] [address] Azeb Hall, MARTIN 505 [place] [address] 01/11/2025 1:00 PM EST Office Visit [address] [address] Sariah Vickers ANP [address] [place] [address] 02/03/2025 11:00 AM EST Medication Management [address] [address] Yuri Pierre, MikeD [address] [place] [address] documented as of this encounter Goals Goal [...] documented as of this encounter Care Teams Avp Relationship Specialty Start Date End Date Sariah Vickers ANP 230 [place] [address] PCP - General Family Medicine 09/23/19 Yuri Pierre, MikeD [address] [place] [address] Pharmacist Internal Medicine 05/05/24 Basilio Hall MD [address] [place] [address] Cardiology 05/17/24 Ron Preciado MD [address] [place] [address] Pulmonary Disease 05/17/24 documented as of this encounter
--- OUTSIDE RECORDS SUMMARY | 2024-12-13 12:57 | XMS_ITS | Encounter Summary ---
Author Organization [employer] Address 75 [facility] 7t [place] [address] Care Team Providers Care Weeder Thinner Name Role Phone Sariah Vickers Primary Care Provider [phone] Yuri Pierre PharmD Unavailable [phone] Basilio Hall MD Unavailable [phone] Ron Preciado MD Unavailable [phone] Reason for Visit * Reason Comments Med Refill Encounter Details Date Type Department Care Team (Late st Contact Info) Description 11/12/2024 Refill [facility] 230 [place] [address] Sariah Vickers ANP 230 [place] [address] Neck pain Social History Tobacco Use Types [...] 01/07/2025 9:30 AM EST Clinical Support [address] [address] Azeb Hall RN 505 [place] [address] 01/11/2025 1:00 PM EST Office Visit [address] [address] Sariah Vickers, ANP [address] [place] [address] 02/03/2025 11:00 AM EST Medication Management [address] [address] Yuri Pierre, PharmD [address] [place] [address] documented as of this encounter Goals Goal [...] documented as of this encounter Care Teams Weeder Thinner Relationship Specialty Start Date End Date Sariah Vickers ANP 230 [place] [address] PCP - General Family Medicine 09/23/19 Yuri Pierre, MikeD 230 [place] [address] Pharmacist Internal Medicine 05/05/24 Basilio Hall MD 596 [place] [address] Cardiology 05/17/24 Ron Preciado MD [address] [place] [address] Pulmonary Disease 05/17/24 documented as of this encounter
--- OUTSIDE RECORDS SUMMARY | 2024-12-13 12:57 | XMS_ITS | Encounter Summary ---
Author Organization [employer] Address 75 [facility] 7t [place] [address] Care Team Providers Care Water Pump Assembler Name Role Phone Sariah Vickers KAYLEE Primary Care Provider [phone] Yuri Pierre PharmD Unavailable [phone] Basilio Hall MD Unavailable [phone] Ron Preciado MD Unavailable [phone] Reason for Visit * Reason Comments Med Refill Encounter Details Date Type Department Care Team (Late st Contact Info) Description 03/04/2023 Refill [facility] 230 [place] [address] Brittney Nava MD 230 [place] [address] Social History Tobacco Use Types Packs/Day Years [...] Description 01/07/2025 9:30 AM EST Clinical Support [address] [address] Azeb Hall, MARTIN 505 [place] [address] 01/11/2025 1:00 PM EST Office Visit [address] [address] Sariah Vickers ANP [address] [place] [address] 02/03/2025 11:00 AM EST Medication Management [address] [address] uYri Pierre, MikeD [address] [place] [address] documented as of this encounter Goals Goal [...] on filedocumented in this encounter Care Teams Water Pump Assembler Relationship Specialty Start Date End Date Sariah Vickers ANP 230 [place] [address] PCP - General Family Medicine 09/23/19 Yuri Pierre, MikeD 230 [place] [address] Pharmacist Internal Medicine 05/05/24 Basilio Hall MD [address] [place] [address] Cardiology 05/17/24 Ron Preciado MD [address] [place] [address] Pulmonary Disease 05/17/24 documented as of this encounter
--- OUTSIDE RECORDS SUMMARY | 2024-12-13 12:57 | XMS_ITS | Encounter Summary ---
Author Organization [employer] Address 75 [facility] 7t [place] [address] Care Team Providers Care Dry Cleaner Hand Name Role Phone Sariah Vickers Primary Care Provider [phone] Yuri Pierre PharmD Unavailable [phone] Basilio Hall MD Unavailable [phone] Ron Preciado MD Unavailable [phone] Encounter Details Date Type Department Care Team (Late st Contact Info) Description 10/26/2024 Results Follow-Up [facility] 230 [place] [address] Sariah Vickers ANP 230 [place] [address] Thyroid Peroxidase Antibodies, Cardiolipin Antibodies (IgA,IgG,IgM) Social [...] 01/07/2025 9:30 AM EST Clinical Support [address] [address] Azeb Hall RN 505 [place] [address] 01/11/2025 1:00 PM EST Office Visit [address] [address] Sariah Vickers ANP [address] [place] [address] 02/03/2025 11:00 AM EST Medication Management [address] [address] Yuri Pierre PharmD 230 [place] [address] documented as of this encounter Goals Goal [...] as of this encounter Care Teams Dry Cleaner Hand Relationship Specialty Start Date End Date Sariah Vickers ANP 230 [place] [address] PCP - General Family Medicine 09/23/19 Yuri Pierre, PharmD 230 [place] [address] Pharmacist Internal Medicine 05/05/24 Basilio Hall MD 596 [place] [address] Cardiology 05/17/24 Ron Preciado MD [address] [place] [address] Pulmonary Disease 05/17/24 documented as of this encounter
--- OUTSIDE RECORDS SUMMARY | 2024-12-13 12:57 | XMS_ITS | Encounter Summary ---
Author Organization [employer] Address 75 [facility] 7t [place] [address] Care Team Providers Care Social Human Services Assistants Name Role Phone Sariah Vickers Primary Care Provider [phone] Yuri Pierre PharmD Unavailable [phone] Basilio Hall MD Unavailable [phone] Ron Preciado MD Unavailable [phone] Reason for Visit * Reason Comments Med Refill Encounter Details Date Type Department Care Team (Late st Contact Info) Description 07/12/2022 Refill [facility] 230 [place] [address] Sariah Vickers ANP 230 [place] [address] Social History Tobacco Use Types Packs/Day Years [...] 01/07/2025 9:30 AM EST Clinical Support [address] [address] Azeb Hall, RN 505 [place] [address] 01/11/2025 1:00 PM EST Office Visit [address] [address] Sariah Vickers ANP [address] [place] [address] 02/03/2025 11:00 AM EST Medication Management [address] [address] Yuri Pierre, PharmD [address] [place] [address] documented as of this encounter Visit Diagnoses Not on filedocumented in this encounter Care Teams Social Human Services Assistants Relationship Specialty Start Date End Date Sariah Vickers ANP [address] [place] [address] PCP - General Family Medicine 09/23/19 Yuri Pierre, PharmD [address] [place] [address] Pharmacist Internal Medicine 05/05/24 Basilio Hall MD 596 [place] [address] Cardiology 05/17/24 Ron Preciado MD [address] [place] [address] Pulmonary Disease 05/17/24 documented as of this encounter
--- OUTSIDE RECORDS SUMMARY | 2024-12-13 12:57 | XMS_ITS | Encounter Summary ---
Author Organization [employer] Address 75 [facility] 7t [place] [address] Care Team Providers Care It Service Continuity Supervisor Name Role Phone Sariah Vickers Primary Care Provider [phone] Yuri Pierre PharmD Unavailable [phone] Basilio Hall MD Unavailable [phone] Ron Preciado MD Unavailable [phone] Reason for Visit * Reason Comments Med Refill Encounter Details Date Type Department Care Team (Late st Contact Info) Description 02/28/2023 Refill [facility] 230 [place] [address] Sariah Vickers ANP 230 [place] [address] Cervicalgia Social History Tobacco Use Types Packs/Day [...] Description 01/07/2025 9:30 AM EST Clinical Support [address] [address] Azeb Hall RN 505 [place] [address] 01/11/2025 1:00 PM EST Office Visit [address] [address] Sariah Vickers ANP [address] [place] [address] 02/03/2025 11:00 AM EST Medication Management [address] [address] Yuri Pierre, MikeD [address] [place] [address] documented as of this encounter Goals Goal [...] Cervicalgia documented in this encounter Care Teams It Service Continuity Supervisor Relationship Specialty Start Date End Date Sariah Vickers ANP 230 [place] [address] PCP - General Family Medicine 09/23/19 Yuri Pierre, MikeD 230 [place], [place] 8565340 Pharmacist Internal Medicine 05/05/24 Basilio Hall MD 596 [place], [place] 4726240 Cardiology 05/17/24 Ron Preciado MD [address] [place] [address] Pulmonary Disease 05/17/24 documented as of this encounter
--- OUTSIDE RECORDS SUMMARY | 2024-12-13 12:57 | XMS_ITS | Encounter Summary ---
Author Organization [employer] Address 75 [facility] 7t [place] [address] Care Team Providers Care Supervisor Forming Department Name Role Phone Sariah Vickers Primary Care Provider [phone] Yuri Pierre PharmD Unavailable [phone] Basilio Hall MD Unavailable [phone] Ron Preciado MD Unavailable [phone] Reason for Visit * Reason Comments Med Refill Encounter Details Date Type Department Care Team (Late st Contact Info) Description 06/30/2023 Refill [facility] 230 [place] [address] Sariah Vickers ANP 230 [place] [address] Neck pain Social History Tobacco Use Types [...] 01/07/2025 9:30 AM EST Clinical Support [address] [address] Azeb Hall, MARTIN 505 [place] [address] 01/11/2025 1:00 PM EST Office Visit [address] [address] Sariah Vickers ANP [address] [place] [address] 02/03/2025 11:00 AM EST Medication Management [address] [address] Yuri Pierre, MikeD [address] [place] [address] documented as of this encounter Goals Goal [...] as of this encounter Care Teams Supervisor Forming Department Relationship Specialty Start Date End Date Sariah Vickers ANP 230 [place] [address] PCP - General Family Medicine 09/23/19 Yuri Pierre, MikeD [address] [place] [address] Pharmacist Internal Medicine 05/05/24 Basilio Hall MD 596 [place] [address] Cardiology 05/17/24 Ron Preciado MD [address] [place] [address] Pulmonary Disease 05/17/24 documented as of this encounter
== END 2024-12-13 10:33 | disposition home or self-care (01) ==
LOC: HO.HMGAL 10:32
PROVIDERS: PCP Nurse Practitioner Primary Care; Visit Provider Registered Nurse Emergency
DX: J30.89 Other allergic rhinitis (principal)
CPT/HCPCS: 95117; 95165

== ENCOUNTER 2024-12-15 09:47 | Outpatient (REF) | payer OTHER, SELFPAY ==
--- NOTE | ~2024-12-15 | US_ITS ---
CLINICAL HISTORY: K75.81 - Nonalcoholic steatohepatitis (OKEEFE) US abdomen complete Comparison: 11/05/2023 08:43 AM EDT Findings: Gallbladder unremarkable, no stone formation or wall thickening. Common duct measures 6.1 mm. No sonographic Perez sign. Liver is homogeneous and normal in size and echogenicity. Main portal vein patent with normal direction of flow. Pancreas is unremarkable. Aorta and IVC patent and normal in caliber. The right kidney is normal, 10.1 cm in length. No focal abnormality or hydronephrosis. The left kidney is normal, 10.8 cm in length. No focal abnormality or hydronephrosis. 3.9 cm upper pole cyst. The spleen is normal, 6.5 cm in length. No focal abnormality. Impression: No significant abnormalities. This document has been electronically signed by: Ever Marquez MD on 12/15/2024 21:44:10
--- OUTSIDE RECORDS SUMMARY | 2024-12-15 11:43 | XMS_ITS | Encounter Summary ---
Author Organization [employer] Address 75 [facility] 7t [place] [address] Care Team Providers Care Brake Tester Name Role Phone Sariah Vickers Primary Care Provider Yuri Pierre PharmD Unavailable [phone] Basilio Hall MD Unavailable [phone] Ron Preciado MD Unavailable [phone] Encounter Details Date Type Department Care Team (Late st Contact Info) Description 01/09/2022 Abstract [facility] [address] [place] [address] Dental, Provider, DDS Social History Tobacco Use [...] 01/07/2025 9:30 AM EST Clinical Support [address] [address] Azeb Hall RN 505 [place] [address] 01/11/2025 1:00 PM EST Office Visit [facility] [address] [place] [address] Sariah Vickers ANP 230 [place] [address] 02/03/2025 11:00 AM EST Medication Management [facility] 230 [place] [address] Yuri Pierre, PharmD 230 [place] [address] documented as of this encounter Procedures Procedure [...] on filedocumented in this encounter Care Teams Brake Tester Relationship Specialty Start Date End Date Sariah Vickers ANP 230 [place] [address] PCP - General Family Medicine 09/23/19 Yuri Pierre, MikeD 230 [place] [address] Pharmacist Internal Medicine 05/05/24 Basilio Hall MD 596 [place] [address] Cardiology 05/17/24 Ron Preciado MD [address] [place] [address] Pulmonary Disease 05/17/24 documented as of this encounter
--- OUTSIDE RECORDS SUMMARY | 2024-12-15 11:43 | XMS_ITS | Encounter Summary ---
Author Organization [employer] Address 75 [facility] 7t [place] [address] Care Team Providers Care Manager Icu Name Role Phone Sariah Vickers Primary Care Provider [phone] Yuri Pierre PharmD Unavailable [phone] Basilio Hall MD Unavailable [phone] Ron Preciado MD Unavailable [phone] Reason for Visit * Reason Comments Med Refill Encounter Details Date Type Department Care Team (Late st Contact Info) Description 08/22/2023 Refill [facility] 230 [place] [address] Sariah Vickers ANP 230 [place] [address] Neck pain Social History Tobacco Use Types [...] 01/07/2025 9:30 AM EST Clinical Support [address] [address] Azeb Hall, MARTIN 505 [place] [address] 01/11/2025 1:00 PM EST Office Visit [address] [address] Sariah Vickers ANP [address] [place] [address] 02/03/2025 11:00 AM EST Medication Management [address] [address] Yuri Pierre, MikeD [address] [place] [address] documented as of this encounter Goals Goal [...] as of this encounter Care Teams Manager Icu Relationship Specialty Start Date End Date Sariah Vickers ANP 230 [place] [address] PCP - General Family Medicine 09/23/19 Yuri Pierre, MikeD [address] [place] [address] Pharmacist Internal Medicine 05/05/24 Basilio Hall MD 596 [place] [address] Cardiology 05/17/24 Ron Preciado MD [address] [place] [address] Pulmonary Disease 05/17/24 documented as of this encounter
--- OUTSIDE RECORDS SUMMARY | 2024-12-15 11:43 | XMS_ITS | Encounter Summary ---
Author Organization [employer] Address 75 [facility] 7t [place] [address] Care Team Providers Care Food Science Technician Name Role Phone Sariah Vickers Primary Care Provider [phone] Yuri Pierre PharmD Unavailable [phone] Basilio Hall MD Unavailable [phone] Ron Preciado MD Unavailable [phone] Reason for Visit * Reason Comments Med Refill Encounter Details Date Type Department Care Team (Late st Contact Info) Description 03/09/2024 Refill [facility] [address] [place] [address] Sariah Vickers ANP 230 [place] [address] Neck pain Social History Tobacco Use Types [...] Description 01/07/2025 9:30 AM EST Clinical Support [address] [address] Azeb Hall RN 505 [place] [address] 01/11/2025 1:00 PM EST Office Visit [address] [address] Sariah Vickers ANP [address] [place] [address] 02/03/2025 11:00 AM EST Medication Management [address] [address] Yuri Pierre, MikeD [address] [place] [address] documented as of this encounter Goals Goal [...] documented as of this encounter Care Teams Food Science Technician Relationship Specialty Start Date End Date Sariah Vickers ANP 230 [place] [address] PCP - General Family Medicine 09/23/19 Yuri Pierre, MikeD [address] [place] [address] Pharmacist Internal Medicine 05/05/24 Basilio Hall MD 596 [place] [address] Cardiology 05/17/24 Ron Preciado MD [address] [place] [address] Pulmonary Disease 05/17/24 documented as of this encounter
--- OUTSIDE RECORDS SUMMARY | 2024-12-15 11:43 | XMS_ITS | Encounter Summary ---
Author Organization [employer] Address 75 [facility] 7t [place] [address] Care Team Providers Care Metal Bumper Name Role Phone Sariah Vickers Primary Care Provider [phone] Yuri Pierre PharmD Unavailable [phone] Basilio Hall MD Unavailable [phone] Ron Preciado MD Unavailable [phone] Reason for Visit * Reason Comments Med Refill Encounter Details Date Type Department Care Team (Late st Contact Info) Description 12/07/2024 Refill [facility] 230 [place] [address] Sariah Vickers ANP 230 [place] [address] Social History Tobacco Use Types Packs/Day Years [...] 01/07/2025 9:30 AM EST Clinical Support [address] [address] Azeb Hall RN 505 [place] [address] 01/11/2025 1:00 PM EST Office Visit [address] [address] Sariah Vickers, ANP [address] [place] [address] 02/03/2025 11:00 AM EST Medication Management [address] [address] Yuri Pierre, PharmD [address] [place] [address] documented as of this encounter Goals Goal [...] as of this encounter Care Teams Metal Bumper Relationship Specialty Start Date End Date Sariah Vickers ANP 230 [place] [address] PCP - General Family Medicine 09/23/19 Yuri Pierre, MikeD 230 [place] [address] Pharmacist Internal Medicine 05/05/24 Basilio Hall MD 596 [place] [address] Cardiology 05/17/24 Ron Preciado MD [address] [place] [address] Pulmonary Disease 05/17/24 documented as of this encounter
--- OUTSIDE RECORDS SUMMARY | 2024-12-15 11:43 | XMS_ITS | Encounter Summary ---
Author Organization [employer] Address 75 [facility] 7t [place] [address] Care Team Providers Care Waste Reclaimer Name Role Phone Sariah Vickers Primary Care Provider [phone] Yuri Pierre PharmD Unavailable [phone] Basilio Hall MD Unavailable [phone] Ron Preciado MD Unavailable [phone] Reason for Visit * Reason Comments Med Refill Encounter Details Date Type Department Care Team (Late st Contact Info) Description 09/13/2022 Refill [facility] [address] [place] [address] Sariah Vickers ANP 230 [place] [address] Severe persistent allergic asthma without complication Social [...] 01/07/2025 9:30 AM EST Clinical Support [address] [address] Azeb Hall, RN 505 [place] [address] 01/11/2025 1:00 PM EST Office Visit [address] [address] Sariah Vickers ANP [address] [place] [address] 02/03/2025 11:00 AM EST Medication Management [address] [address] Yuri Pierre, PharmD [address] [place] [address] documented as of this encounter Visit Diagnoses Diagnosis Severe persistent allergic asthma without complication (HCC) documented in this encounter Care Teams Waste Reclaimer Relationship Specialty Start Date End Date Sariah Vickers ANP [address] [place] [address] PCP - General Family Medicine 09/23/19 Yuri Pierre, PharmD [address] [place] [address] Pharmacist Internal Medicine 05/05/24 Basilio Hall MD 596 [place] [address] Cardiology 05/17/24 Ron Preciado MD [address] [place] [address] Pulmonary Disease 05/17/24 documented as of this encounter
--- OUTSIDE RECORDS SUMMARY | 2024-12-15 11:43 | XMS_ITS | Encounter Summary ---
Author Organization [employer] Address 75 [facility] 7t [place] [address] Care Team Providers Care Inspector Line Name Role Phone Sariah Vickers Primary Care Provider Yuri Pierre PharmD Unavailable [phone] Basilio Hall MD Unavailable [phone] Ron Preciado MD Unavailable [phone] Reason for Visit * Reason Comments Med Refill Encounter Details Date Type Department Care Team (Late st Contact Info) Description 12/02/2024 Refill [facility] [address] [place] [address] Sariah Vickers ANP 230 [place] [address] Type 2 diabetes mellitus with diabetic neuropathy, [...] 01/07/2025 9:30 AM EST Clinical Support [address] [address] Azeb Hall, RN 505 [place] [address] 01/11/2025 1:00 PM EST Office Visit [address] [address] Sariah Vickers, KAYLEE [address] [place] [address] 02/03/2025 11:00 AM EST Medication Management [address] [address] Yuri Pierre, PharmD [address] [place] [address] documented as of this encounter Goals Goal [...] as of this encounter Care Teams Inspector Line Relationship Specialty Start Date End Date Sariah Vickers ANP 230 [place] [address] PCP - General Family Medicine 09/23/19 Yuri Pierre, MikeD [address] [place] [address] Pharmacist Internal Medicine 05/05/24 Basilio Hall MD [address] [place] [address] Cardiology 05/17/24 Ron Preciado MD [address] [place] [address] Pulmonary Disease 05/17/24 documented as of this encounter
--- OUTSIDE RECORDS SUMMARY | 2024-12-15 11:43 | XMS_ITS | Encounter Summary ---
Author Organization [email or web address] Address 75 [facility] 7t [place] [address] Care Team Providers Care Paper Machine Supervisor Name Role Phone Sariah Vickers Primary Care Provider Yuri Pierre PharmD Unavailable [phone] Basilio Hall MD Unavailable [phone] Ron Preciado MD Unavailable [phone] Reason for Visit * Reason Comments Med Refill Encounter Details Date Type Department Care Team (Late st Contact Info) Description 02/06/2022 Refill [facility] 230 [place] [address] Sariah Vickers ANP 230 [place] [address] Social History Tobacco Use Types Packs/Day Years [...] 01/07/2025 9:30 AM EST Clinical Support [address] [address] Azeb Hall, RN 505 [place] [address] 01/11/2025 1:00 PM EST Office Visit [address] [address] Sariah Vickers ANP [address] [place] [address] 02/03/2025 11:00 AM EST Medication Management [address] [address] Yuri Pierre, PharmD [address] [place] [address] documented as of this encounter Visit Diagnoses Not on filedocumented in this encounter Care Teams Paper Machine Supervisor Relationship Specialty Start Date End Date Sariah Vickers ANP [address] [place] [address] PCP - General Family Medicine 09/23/19 Yuri Pierre, PharmD [address] [place] [address] Pharmacist Internal Medicine 05/05/24 Basilio Hall MD 596 [place] [address] Cardiology 05/17/24 Ron Preciado MD [address] [place] [address] Pulmonary Disease 05/17/24 documented as of this encounter
--- OUTSIDE RECORDS SUMMARY | 2024-12-15 11:43 | XMS_ITS | Encounter Summary ---
Author Organization [employer] Address 75 [facility] 7t [place] [address] Care Team Providers Care Project Program Manager Name Role Phone Sariah Vickers Primary Care Provider [phone] Yuri Pierre PharmD Unavailable [phone] Basilio Hall MD Unavailable [phone] Ron Preciado MD Unavailable [phone] Encounter Details Date Type Department Care Team (Late st Contact Info) Description 02/05/2022 Abstract [facility] MEDICINE 230 [place] [address] Sariah Vickers ANP 230 [place] [address] Social History Tobacco Use Types Packs/Day Years [...] Description 01/07/2025 9:30 AM EST Clinical Support [address] [address] Azeb Hall RN 505 [place] [address] 01/11/2025 1:00 PM EST Office Visit [address] [address] Sariah Vickers ANP [address] [place] [address] 02/03/2025 11:00 AM EST Medication Management [address] [address] Yuri Pierre, PharmD [address] [place] [address] documented as of this encounter Visit Diagnoses Not on filedocumented in this encounter Care Teams Project Program Manager Relationship Specialty Start Date End Date Sariah Vickers ANP [address] [place] [address] PCP - General Family Medicine 09/23/19 Yuri Pierre, PharmD [address] [place] [address] Pharmacist Internal Medicine 05/05/24 Basilio Hall MD 596 [place] [address] Cardiology 05/17/24 Ron Preciado MD [address] [place] [address] Pulmonary Disease 05/17/24 documented as of this encounter
--- OUTSIDE RECORDS SUMMARY | 2024-12-15 11:43 | XMS_ITS | Encounter Summary ---
Author Organization [employer] Address [address] [facility] 7t [place] [address] Care Team Providers Care Environmental Engineering Intern Name Role Phone Sariah Vickers Primary Care Provider [phone] Yuri Pierre PharmD Unavailable [phone] Basilio Hall MD Unavailable [phone] Ron Preciado MD Unavailable [phone] Encounter Details Date Type Department Care Team (Latest Contact Info) Description 06/20/2021 Abstract [facility] CONVERSIONS Dental, Provider, DDS Social [...] 01/07/2025 9:30 AM EST Clinical Support [address] [address] Azeb Hall RN 505 [place] [address] 01/11/2025 1:00 PM EST Office Visit [address] [address] Sariah Vickers ANP [address] [place] [address] 02/03/2025 11:00 AM EST Medication Management [address] [place] [address] Yuri Pierre, PharmD 230 [place] [address] documented as of this encounter Visit Diagnoses Not on filedocumented in this encounter Care Teams Environmental Engineering Intern Relationship Specialty Start Date End Date Sariah Vickers ANP 230 [place], [place] [phone] PCP - General Family Medicine 09/23/19 Yuri Pierre, PharmD 230 [place], [place] [phone] Pharmacist Internal Medicine 05/05/24 Basilio Hall MD 596 [place] [address] Cardiology 05/17/24 Ron Precidao MD [address] [place] [address] Pulmonary Disease 05/17/24 documented as of this encounter
--- OUTSIDE RECORDS SUMMARY | 2024-12-15 11:43 | XMS_ITS | Encounter Summary ---
Author Organization [employer] Address 75 [facility] 7t [place] [address] Care Team Providers Care Automotive Service Director Name Role Phone Sariah Vickers Primary Care Provider [phone] Yuri Pierre PharmD Unavailable [phone] Basilio Hall MD Unavailable [phone] Ron Preciado MD Unavailable [phone] Encounter Details Date Type Department Care Team (Latest Contact Info) Description 05/15/[address] [facility] CONVERSIONS Dental, Provider, DDS Social History [...] 01/07/2025 9:30 AM EST Clinical Support [address] [address] Azeb Hall RN 505 [place] [address] 01/11/2025 1:00 PM EST Office Visit [address] [address] Sariah Vickers ANP [address] [place] [address] 02/03/2025 11:00 AM EST Medication Management [address] [place] [address] Yuri Pierre, PharmD 230 [place] [address] documented as of this encounter Visit Diagnoses Not on filedocumented in this encounter Care Teams Automotive Service Director Relationship Specialty Start Date End Date Sariah Vickers ANP 230 [place] [address] PCP - General Family Medicine 09/23/19 Yuri Pierre, PharmD 230 [place], [place] [phone] Pharmacist Internal Medicine 05/05/24 Basilio Hall MD 596 [place] [address] Cardiology 05/17/24 Ron Preciado MD [address] [place] [address] Pulmonary Disease 05/17/24 documented as of this encounter
--- OUTSIDE RECORDS SUMMARY | 2024-12-15 11:43 | XMS_ITS | Encounter Summary ---
Author Organization [employer] Address [address] [place] [address] 7t [place] [address] Care Team Providers Care Wafer Production Worker Name Role Phone Sariah Vickers Primary Care Provider [phone] Yuri Pierre PharmD Unavailable [phone] Basilio Hall MD Unavailable [phone] Ron Preciado MD Unavailable [phone] Reason for Visit * Reason Onset Date Comments Nurse Triage 11/01/2022 Encounter Details Date Type Department Care Team (Late st Contact Info) Description 11/01/2022 Telephone [facility] MEDICINE 230 [place] [address] Sariah Vickers ANP 230 [place] [address] Nurse Triage Social History Tobacco Use Types [...] 11/01/2022 3:51 PM EDT Triage call with Mittie Cement Tile Maker ID [id number] Pt reports blood sugars have been high [...] Description 01/07/2025 9:30 AM EST Clinical Support [facility] MEDICINE [address] [place] [address] Azeb Hall RN 505 [place] [address] 01/11/2025 1:00 PM EST Office Visit [address] [address] Sariah Vickers ANP [address] [place] [address] 02/03/2025 11:00 AM EST Medication Management [facility] MEDICINE 230 [place] [address] Yuri Pierre, PharmD 230 [place] [address] documented as of this encounter Goals Goal [...] on filedocumented in this encounter Care Teams Wafer Production Worker Relationship Specialty Start Date End Date Sariah Vickers ANP 230 [place] [address] PCP - General Family Medicine 09/23/19 Yuri Pierre, PharmD 230 [place] [address] Pharmacist Internal Medicine 05/05/24 Basilio Hall MD 596 [place] [address] Cardiology 05/17/24 Ron Preciado MD [address] [place] [address] Pulmonary Disease 05/17/24 documented as of this encounter
--- OUTSIDE RECORDS SUMMARY | 2024-12-15 11:43 | XMS_ITS | Encounter Summary ---
Author Organization [employer] Address 75 [facility] 7t [place] [address] Care Team Providers Care Medicine Aide Name Role Phone Sariah Vickers Primary Care Provider Yuri Pierre PharmD Unavailable [phone] Basilio Hall MD Unavailable [phone] Ron Preciado MD Unavailable [phone] Encounter Details Date Type Department Care Team (Latest Contact Info) Description 04/14/2020 Abstract [facility] CONVERSIONS Dental, Provider, DDS Social History Tobacco [...] Description 01/07/2025 9:30 AM EST Clinical Support [address] [address] Azeb Hall RN 505 [place] [address] 01/11/2025 1:00 PM EST Office Visit [address] [address] Sariah Vickers ANP [address] [place] [address] 02/03/2025 11:00 AM EST Medication Management [address] [place] [address] Yuri Pierre, PharmD 230 [place] [address] documented as of this encounter Visit Diagnoses Not on filedocumented in this encounter Care Teams Medicine Aide Relationship Specialty Start Date End Date Sariah Vickers ANP 230 [place], [place] [phone] PCP - General Family Medicine 09/23/19 Yuri Pierre, PharmD 230 [place], [place] 7000440 Pharmacist Internal Medicine 05/05/24 Basilio Hall MD 596 [place] [address] Cardiology 05/17/24 Ron Preciado MD [address] [place] [address] Pulmonary Disease 05/17/24 documented as of this encounter
--- OUTSIDE RECORDS SUMMARY | 2024-12-15 11:43 | XMS_ITS | Encounter Summary ---
Author Organization [employer] Address 75 [facility] 7t [place] [address] Care Team Providers Care Fire Extinguisher Technician Name Role Phone Sariah Vickers Primary Care Provider [phone] Yuri Pierre PharmD Unavailable [phone] Basilio Hall MD Unavailable [phone] Ron Preciado MD Unavailable [phone] Encounter Details Date Type Department Care Team (Late st Contact Info) Description 11/23/2024 Orders Only [facility] MEDICINE 230 [place] [address] Sariah Vickers ANP 230 [place] [address] Social History Tobacco Use Types Packs/Day Years [...] 01/07/2025 9:30 AM EST Clinical Support [address] [address] Azeb Hall, MARTIN 505 [place] [address] 01/11/2025 1:00 PM EST Office Visit [address] [address] Sariah Vickers ANP [address] [place] [address] 02/03/2025 11:00 AM EST Medication Management [address] [address] Yuri Pierre, MikeD [address] [place] [address] documented as of this encounter Goals Goal Patient Goal Type Associated Problems Recent Progress Patient-Stated? Author Blood Pressure < 140/90 Blood Pressure 133/91(2024 9:51 AM EDT) No Aida Raglnad, PharmD Record Your Blood Sugar As Directed General No Aida Ragland PharmD Hemoglobin A1c < 7 Result Component 6.6( 5 1:54 PM EDT) No Aida Ragland PharmD documented as of this encounter Visit Diagnoses Not on filedocumented in this encounter Additional Health Concerns Assessment Noted Time PHQ-9 Depression Total Score: 11 025 5:30 PM EDT documented as of this encounter Care Teams Fire Extinguisher Technician Relationship Specialty Start Date End Date Sariah Vickers, KAYLEE 230 [place] [address] PCP - General Family Medicine 09/23/19 Yuri Pierre, MikeD [address] [place] [address] Pharmacist Internal Medicine 05/05/24 Basilio Hall MD 596 [place] [address] Cardiology 05/17/24 Ron Preciado MD [address] [place] [address] Pulmonary Disease 05/17/24 documented as of this encounter
--- OUTSIDE RECORDS SUMMARY | 2024-12-15 11:44 | XMS_ITS | Encounter Summary ---
Author Organization [employer] Address 75 [facility] 7t [place] [address] Care Team Providers Care Jazz Musician Name Role Phone Sariah Vickers Primary Care Provider Yuri Pierre PharmD Unavailable [phone] Basilio Hall MD Unavailable [phone] Ron Preciado MD Unavailable [phone] Reason for Visit * Reason Onset Date Comments Results 12/09/2024 Encounter Details Date Type Department Care Team (Late st Contact Info) Description 12/09/2024 Telephone [facility] MEDICINE 230 [place], [place] [phone] Sariah Vickers ANP 230 [place], [place] [phone] Results Social History Tobacco Use Types Packs/Day [...] lab results Date when done: 12/08 Facility: [facility] Contact pt at [phone] ([email or web address]) documented in this encounter Plan of Treatment Upcoming Encounters Date Type Department Care Team ([facility] st Contact Info) Description 01/07/2025 9:30 AM EST Clinical Support [facility] MEDICINE [address] [place] [address] Azeb Hall RN 505 [place] [address] 01/11/2025 1:00 PM EST Office Visit [address] [address] Sariah Vickers ANP 230 [place] [address] 02/03/2025 11:00 AM EST Medication Management [facility] MEDICINE 230 [place] [address] Yuri Pierre, PharmD 230 [place] [address] documented as of this encounter Goals Goal [...] documented as of this encounter Care Teams Jazz Musician Relationship Specialty Start Date End Date Sariah Vickers ANP [address] [place] [address] PCP - General Family Medicine 09/23/19 Yuri Pierre, PharmD [address] [place] [address] Pharmacist Internal Medicine 05/05/24 Basilio Hall MD 596 [place] [address] Cardiology 05/17/24 Ron Preciado MD [address] [place] [address] Pulmonary Disease 05/17/24 documented as of this encounter
--- OUTSIDE RECORDS SUMMARY | 2024-12-15 11:44 | XMS_ITS | Encounter Summary ---
Author Organization [employer] Address 75 [facility] 7t [place] [address] Care Team Providers Care Regrinder Name Role Phone Sariah Vickers Primary Care Provider [phone] Yuri Pierre PharmD Unavailable [phone] Basilio Hall MD Unavailable [phone] Ron Preciado MD Unavailable [phone] Reason for Visit * Reason Comments Med Refill Encounter Details Date Type Department Care Team (Late st Contact Info) Description 12/17/2023 Refill [facility] MEDICINE 230 [place] [address] Sariah Vickers ANP 230 [place] [address] Chronic SI joint pain Social History Tobacco [...] 01/07/2025 9:30 AM EST Clinical Support [address] [address] Azeb Hall, MARTIN 505 [place] [address] 01/11/2025 1:00 PM EST Office Visit [address] [address] Sariah Vickers ANP [address] [place] [address] 02/03/2025 11:00 AM EST Medication Management [address] [address] Yuri Pierre, MikeD [address] [place] [address] documented as of this encounter Goals Goal [...] documented as of this encounter Care Teams Regrinder Relationship Specialty Start Date End Date Sariah Vickers ANP 230 [place] [address] PCP - General Family Medicine 09/23/19 Yuri Pierre, MikeD 230 [place] [address] Pharmacist Internal Medicine 05/05/24 Basilio Hall MD [address] [place] [address] Cardiology 05/17/24 Ron Preciado MD [address] [place] [address] Pulmonary Disease 05/17/24 documented as of this encounter
--- OUTSIDE RECORDS SUMMARY | 2024-12-15 11:44 | XMS_ITS | Encounter Summary ---
Author Organization [employer] Address 75 [facility] 7t [place] [address] Care Team Providers Care Money Manager Name Role Phone Sariah Vickers Primary Care Provider [phone] Yuri Pierre PharmD Unavailable [phone] Basilio Hall MD Unavailable [phone] Ron Preciado MD Unavailable [phone] Reason for Visit * Reason Onset Date Comments Med Refill 09/18/2023 Encounter Details Date Type Department Care Team (Late st Contact Info) Description 09/18/2023 Telephone [facility] MEDICINE 230 [place], [place] [phone] Sariah Vickers ANP 230 [place], [place] [phone] Med Refill Social History Tobacco Use Types [...] refill : Tramadol To be sent to: [facility] - [place], [place] - [address] [place] [address] documented in this encounter Plan of Treatment Upcoming Encounters Date Type Department Care Team ([facility] st Contact Info) Description 01/07/2025 9:30 AM EST Clinical Support [address] [address] Azeb Hall RN 505 [place] [address] 01/11/2025 1:00 PM EST Office Visit [address] [address] Sariah Vickers ANP [address] [place] [address] 02/03/2025 11:00 AM EST Medication Management [address] [address] Yuri Pierre, PharmD 230 [place] [address] documented as of this encounter Goals Goal [...] documented as of this encounter Care Teams Money Manager Relationship Specialty Start Date End Date Sariah Vickers ANP 230 [place] [address] PCP - General Family Medicine 09/23/19 Yuri Pierre, PharmD 230 [place] [address] Pharmacist Internal Medicine 05/05/24 Basilio Hall MD 596 [place] [address] Cardiology 05/17/24 Ron Preciado MD [address] [place] [address] Pulmonary Disease 05/17/24 documented as of this encounter
--- OUTSIDE RECORDS SUMMARY | 2024-12-15 11:44 | XMS_ITS | Encounter Summary ---
Author Organization [employer] Address 75 [facility] 7t [place] [address] Care Team Providers Care Electronic Game Developer Name Role Phone Sariah Vickers Primary Care Provider [phone] Yuri Pierre PharmD Unavailable [phone] Basilio Hall MD Unavailable [phone] Ron Preciado MD Unavailable [phone] Reason for Visit * Reason Comments Med Refill Patient walked in [facility] pharmacy hasn't finished her Medbox due to missing refill for medication Gabapetin . Encounter Details Date Type Department Care Team (Late st Contact Info) Description 10/03/2023 Refill [facility] 230 [place], [place] [phone] Sariah Vickers ANP 230 [place], [place] [phone] Chronic SI joint pain Social History Tobacco [...] the past 12 months, has t he [employer] oil or [employer] company threatened to [...] 01/07/2025 9:30 AM EST Clinical Support [address] [address] Azeb Hall RN 505 [place] [address] 01/11/2025 1:00 PM EST Office Visit [address] [address] Sariah Vickers ANP [address] [place] [address] 02/03/2025 11:00 AM EST Medication Management [address] [address] Yuri Pierre, PharmD 230 [place] [address] documented as of this encounter Goals Goal [...] as of this encounter Care Teams Electronic Game Developer Relationship Specialty Start Date End Date Sariah Vickers ANP 230 [place] [address] PCP - General Family Medicine 09/23/19 Yuri Pierre, PharmD 230 [place] [address] Pharmacist Internal Medicine 05/05/24 Basilio Hall MD 596 [place] [address] Cardiology 05/17/24 Ron Preciado MD [address] [place] [address] Pulmonary Disease 05/17/24 documented as of this encounter
--- OUTSIDE RECORDS SUMMARY | 2024-12-15 11:44 | XMS_ITS | Encounter Summary ---
Author Organization [employer] Address 75 [facility] 7t [place] [address] Care Team Providers Care Supervisor Paper Coating Name Role Phone Sariah Vickers Primary Care Provider [phone] Yuri Pierre PharmD Unavailable [phone] Basilio Hall MD Unavailable [phone] Ron Preciado MD Unavailable [phone] Reason for Visit * Reason Comments Med Refill Encounter Details Date Type Department Care Team (Late st Contact Info) Description 11/14/2023 Refill [facility] MEDICINE 230 [place] [address] Sariah Vickers ANP 230 [place] [address] Neck pain Social History Tobacco Use Types [...] Description 01/07/2025 9:30 AM EST Clinical Support [address] [address] Azeb Hall, MARTIN 505 [place] [address] 01/11/2025 1:00 PM EST Office Visit [address] [address] Sariah Vickers ANP [address] [place] [address] 02/03/2025 11:00 AM EST Medication Management [address] [address] Yuri Pierre, MikeD [address] [place] [address] documented as of this encounter Goals Goal [...] as of this encounter Care Teams Supervisor Paper Coating Relationship Specialty Start Date End Date Sariah Vickers ANP 230 [place] [address] PCP - General Family Medicine 09/23/19 Yuri Pierre, MikeD [address] [place] [address] Pharmacist Internal Medicine 05/05/24 Basilio Hall MD 596 [place] [address] Cardiology 05/17/24 Ron Preciado MD [address] [place] [address] Pulmonary Disease 05/17/24 documented as of this encounter
--- OUTSIDE RECORDS SUMMARY | 2024-12-15 11:44 | XMS_ITS | Encounter Summary ---
Author Organization [employer] Address 75 [facility] 7t [place] [address] Care Team Providers Care Order Control Clerk Blood Bank Name Role Phone Sariah Vickers Primary Care Provider [phone] Yuri Pierre PharmD Unavailable [phone] Basilio Hall MD Unavailable [phone] Ron Preciado MD Unavailable [phone] Reason for Visit * Reason Comments Med Refill Pt wants to know if she can keep taking prednis Encounter Details Date Type Department Care Team (Late st Contact Info) Description 06/26/2024 Refill [facility] [address] [place] [address] Sariah Vickers ANP 230 [place] [address] Cervicalgia Social History Tobacco Use Types Packs/Day [...] 01/07/2025 9:30 AM EST Clinical Support [address] [address] Azeb Hall, MARTIN 505 [place] [address] 01/11/2025 1:00 PM EST Office Visit [facility] MEDICINE [address] [place] [address] Sariah Vickers ANP [address] [place] [address] 02/03/2025 11:00 AM EST Medication Management [facility] MEDICINE [address] [place] [address] Yuri Pierre, MikeD [address] [place] [address] documented as of this encounter Goals Goal [...] documented as of this encounter Care Teams Order Control Clerk Blood Bank Relationship Specialty Start Date End Date Sariah Vickers ANP 230 [place] [address] PCP - General Family Medicine 09/23/19 Yuri Pierre, MikeD 230 [place] [address] Pharmacist Internal Medicine 05/05/24 Basilio Hall MD [address] [place] [address] Cardiology 05/17/24 Ron Preciado MD [address] [place] [address] Pulmonary Disease 05/17/24 documented as of this encounter
--- OUTSIDE RECORDS SUMMARY | 2024-12-15 11:44 | XMS_ITS | Encounter Summary ---
Author Organization [employer] Address 75 [facility] 7t [place] [address] Care Team Providers Care Supply Specialist Name Role Phone Sariah Vickers Primary Care Provider [phone] Yuri Pierre PharmD Unavailable [phone] Basilio Hall MD Unavailable [phone] Ron Preciado MD Unavailable [phone] Reason for Visit * Reason Onset Date Comments Durable Medical Equipment 03/15/2022 Encounter Details Date Type Department Care Team (Late st Contact Info) Description 03/15/2022 Telephone [facility] MEDICINE 230 [place] [address] Sariah Vickers ANP 230 [place] [address] Durable Medical Equipment Social History Tobacco Use [...] Description 01/07/2025 9:30 AM EST Clinical Support [address] [address] Azeb Hall RN 505 [place] [address] 01/11/2025 1:00 PM EST Office Visit [address] [address] Sariah Vickers ANP [address] [place] [address] 02/03/2025 11:00 AM EST Medication Management [address] [address] Yuri Pierre, Dileep [address] [place] [address] documented as of this encounter Visit Diagnoses Not on filedocumented in this encounter Care Teams Supply Specialist Relationship Specialty Start Date End Date Sariah Vickers ANP [address] [place] [address] PCP - General Family Medicine 09/23/19 Yuri Pierre, PharmD [address] [place] [address] Pharmacist Internal Medicine 05/05/24 Basilio Hall MD 596 [place] [address] Cardiology 05/17/24 Ron Preciado MD [address] [place] [address] Pulmonary Disease 05/17/24 documented as of this encounter
--- OUTSIDE RECORDS SUMMARY | 2024-12-15 11:44 | XMS_ITS | Encounter Summary ---
Author Organization [employer] Address 75 [facility] 7t [place] [address] Care Team Providers Care Senior Reservations Agent Name Role Phone Sariah Vickers Primary Care Provider [phone] Yuri Pierre PharmD Unavailable [phone] Basilio Hall MD Unavailable [phone] Ron Perciado MD Unavailable [phone] Reason for Visit * Reason Comments Med Refill Encounter Details Date Type Department Care Team (Late st Contact Info) Description 11/26/2023 Refill [facility] MEDICINE 230 [place] [address] Sariah Vickers ANP 230 [place] [address] Vertigo Social History Tobacco Use Types Packs/Day [...] 01/07/2025 9:30 AM EST Clinical Support [address] [address] Azeb Hall, MARTIN 505 [place] [address] 01/11/2025 1:00 PM EST Office Visit [address] [address] Sariah Vickers ANP [address] [place] [address] 02/03/2025 11:00 AM EST Medication Management [address] [address] Yuri Pierre, MikeD [address] [place] [address] documented as of this encounter Goals Goal [...] as of this encounter Care Teams Senior Reservations Agent Relationship Specialty Start Date End Date Sariah Vickers ANP 230 [place] [address] PCP - General Family Medicine 09/23/19 Yuri Pierre, MikeD [address] [place] [address] Pharmacist Internal Medicine 05/05/24 Basilio Hall MD 596 [place] [address] Cardiology 05/17/24 Ron Preciado MD [address] [place] [address] Pulmonary Disease 05/17/24 documented as of this encounter
--- OUTSIDE RECORDS SUMMARY | 2024-12-15 11:44 | XMS_ITS | Encounter Summary ---
Author Organization [employer] Address 75 [facility] 7t [place] [address] Care Team Providers Care Veterinary Science Teacher Name Role Phone Sariah Vickers Primary Care Provider [phone] Yuri Pierre PharmD Unavailable [phone] Basilio Hall MD Unavailable [phone] Ron Preciado MD Unavailable [phone] Reason for Visit * Reason Onset Date Comments Med Refill 01/09/2024 Encounter Details Date Type Department Care Team (Late st Contact Info) Description 01/09/2024 Telephone [facility] MEDICINE 230 [place] [address] Sariah Vickers ANP 230 [place], [place] [phone] Med Refill Social History Tobacco Use Types [...] 01/07/2025 9:30 AM EST Clinical Support [address] [address] Azeb Hall, MARTIN 505 [place] [address] 01/11/2025 1:00 PM EST Office Visit [address] [address] Sariah Vickers ANP [address] [place] [address] 02/03/2025 11:00 AM EST Medication Management [address] [address] Yuri Pierre, MikeD [address] [place] [address] documented as of this encounter Goals Goal [...] documented as of this encounter Care Teams Veterinary Science Teacher Relationship Specialty Start Date End Date Sariah Vickers ANP 230 [place] [address] PCP - General Family Medicine 09/23/19 Yuri Pierre, MikeD [address] [place] [address] Pharmacist Internal Medicine 05/05/24 Basilio Hall MD [address] [place] [address] Cardiology 05/17/24 Ron Preciado MD [address] [place] [address] Pulmonary Disease 05/17/24 documented as of this encounter
--- OUTSIDE RECORDS SUMMARY | 2024-12-15 11:44 | XMS_ITS | Encounter Summary ---
Author Organization [employer] Address 75 [facility] 7t [place] [address] Care Team Providers Care Reservations Agent Name Role Phone Sariah Vickers Primary Care Provider [phone] Yuri Pierre PharmD Unavailable [phone] Basilio Hall MD Unavailable [phone] Ron Preciado MD Unavailable [phone] Reason for Visit * Reason Comments Med Refill Encounter Details Date Type Department Care Team (Late st Contact Info) Description 11/24/2023 Refill [facility] MEDICINE 230 [place] [address] Sariah Vickers ANP 230 [place] [address] Vertigo Social History Tobacco Use Types Packs/Day [...] 01/07/2025 9:30 AM EST Clinical Support [address] [address] Azeb Hall, MARTIN 505 [place] [address] 01/11/2025 1:00 PM EST Office Visit [address] [address] Sariah Vickers ANP [address] [place] [address] 02/03/2025 11:00 AM EST Medication Management [address] [address] Yuri Pierre, MikeD [address] [place] [address] documented as of this encounter Goals [...] documented as of this encounter Care Teams Reservations Agent Relationship Specialty Start Date End Date Sariah Vickers ANP 230 [place] [address] PCP - General Family Medicine 09/23/19 Yuri Pierre, MikeD [address] [place] [address] Pharmacist Internal Medicine 05/05/24 Basilio Hall MD 596 [place] [address] Cardiology 05/17/24 Ron Preciado MD [address] [place] [address] Pulmonary Disease 05/17/24 documented as of this encounter
--- OUTSIDE RECORDS SUMMARY | 2024-12-15 11:44 | XMS_ITS | Encounter Summary ---
Author Organization [employer] Address 75 [facility] 7t [place] [address] Care Team Providers Care Tire Debeader Name Role Phone Sariah Vickers Primary Care Provider [phone] Yuri Pierre PharmD Unavailable [phone] Basilio Hall MD Unavailable [phone] Ron Preciado MD Unavailable [phone] Reason for Visit * Reason Comments Med Refill Encounter Details Date Type Department Care Team (Late st Contact Info) Description 10/03/2023 Refill [facility] 230 [place] [address] Sariah Vickers ANP 230 [place], [place] [phone] Chronic SI joint pain Social History Tobacco [...] Description 01/07/2025 9:30 AM EST Clinical Support [address] [address] Azeb Hall, MARTIN 505 [place] [address] 01/11/2025 1:00 PM EST Office Visit [address] [address] Sariah Vickers ANP [address] [place] [address] 02/03/2025 11:00 AM EST Medication Management [address] [address] Yuri Pierre, MikeD [address] [place] [address] documented as of this encounter Goals Goal [...] documented as of this encounter Care Teams Tire Debeader Relationship Specialty Start Date End Date Sariah Vickers ANP 230 [place] [address] PCP - General Family Medicine 09/23/19 Yuri Pierre, MikeD [address] [place] [address] Pharmacist Internal Medicine 05/05/24 Basilio Hall MD [address] [place] [address] Cardiology 05/17/24 Ron Preciado MD [address] [place] [address] Pulmonary Disease 05/17/24 documented as of this encounter
--- OUTSIDE RECORDS SUMMARY | 2024-12-15 11:44 | XMS_ITS | Encounter Summary ---
Author Organization [employer] Address 75 [facility] 7t [place] [address] Care Team Providers Care Supervisor Contact Lens Name Role Phone Sariah Vickers Primary Care Provider [phone] Yuri Pierre PharmD Unavailable [phone] Basilio Hall MD Unavailable [phone] Ron Preciado MD Unavailable [phone] Reason for Visit * Reason Comments Med Refill Encounter Details Date Type Department Care Team (Late st Contact Info) Description 03/03/2022 Refill [facility] MED[facility] 230 [place] [address] Sariah Vickers ANP 230 [place] [address] Social History Tobacco Use Types Packs/Day Years [...] Description 01/07/2025 9:30 AM EST Clinical Support [facility] [address] [place] [address] Azeb Hall RN 505 [place] [address] 01/11/2025 1:00 PM EST Office Visit [address] [address] Sariah Vickers ANP [address] [place] [address] 02/03/2025 11:00 AM EST Medication Management [address] [address] Yuri Pierre, PharmBear [address] [place] [address] documented as of this encounter Visit Diagnoses Not on filedocumented in this encounter Care Teams Supervisor Contact Lens Relationship Specialty Start Date End Date Sariah Vickers ANP [address] [place] [address] PCP - General Family Medicine 09/23/19 Yuri Pierre, PharmD [address] [place] [address] Pharmacist Internal Medicine 05/05/24 Basilio Hall MD 596 [place] [address] Cardiology 05/17/24 Ron Preciado MD [address] [place] [address] Pulmonary Disease 05/17/24 documented as of this encounter
--- OUTSIDE RECORDS SUMMARY | 2024-12-15 11:44 | XMS_ITS | Encounter Summary ---
Author Organization [employer] Address 75 [facility] 7t [place] [address] Care Team Providers Care Capacitor Pack Press Operator Name Role Phone Sariah Vickers Primary Care Provider [phone] Yuri Pierre PharmD Unavailable [phone] Basilio Hall MD Unavailable [phone] Ron Preciado MD Unavailable [phone] Reason for Visit * Reason Comments Med Refill Encounter Details Date Type Department Care Team (Late st Contact Info) Description 01/04/2024 Refill [facility] [address] [place] [address] Sariah Vickers ANP 230 [place] [address] Cervicalgia Social History Tobacco Use Types Packs/Day [...] Description 01/07/2025 9:30 AM EST Clinical Support [address] [address] Azeb Hall RN 505 [place] [address] 01/11/2025 1:00 PM EST Office Visit [address] [address] Sariah Vickers ANP [address] [place] [address] 02/03/2025 11:00 AM EST Medication Management [address] [address] Yuri Pierre, MikeD [address] [place] [address] documented as of this encounter Goals Goal [...] documented as of this encounter Care Teams Capacitor Pack Press Operator Relationship Specialty Start Date End Date Sariah Vickers ANP 230 [place] [address] PCP - General Family Medicine 09/23/19 Yuri Pierre, MikeD [address] [place] [address] Pharmacist Internal Medicine 05/05/24 Basilio Hall MD [address] [place] [address] Cardiology 05/17/24 Ron Preciado MD [address] [place] [address] Pulmonary Disease 05/17/24 documented as of this encounter
--- OUTSIDE RECORDS SUMMARY | 2024-12-15 11:44 | XMS_ITS | Encounter Summary ---
Author Organization [email or web address] Address 75 [facility] 7t [place] [address] Care Team Providers Care Last Greaser Name Role Phone Sariah Vickers Primary Care Provider [phone] Yuri Pierre PharmD Unavailable [phone] Basilio Hall MD Unavailable [phone] Ron Preciado MD Unavailable [phone] Reason for Visit * Reason Onset Date Comments Med Refill 02/04/2024 Encounter Details Date Type Department Care Team (Late st Contact Info) Description 02/04/[address] [facility] MEDICINE 230 [place] [address] Sariah Vickers ANP 230 [place], [place] [phone] Med Refill Social History Tobacco Use Types [...] 50 MG tablet To be sent to: [facility] - [place], [place] - [address] [place] [address] documented in this encounter Plan of Treatment Upcoming Encounters Date Type Department Care Team ([facility] st Contact Info) Description 01/07/2025 9:30 AM EST Clinical Support [address] [address] Azeb Hall RN 505 [place] [address] 01/11/2025 1:00 PM EST Office Visit [address] [address] Sariah Vickers ANP [address] [place] [address] 02/03/2025 11:00 AM EST Medication Management [address] [address] Yuri Pierre, PharmD 230 [place] [address] documented as of this encounter Goals Goal [...] documented as of this encounter Care Teams Last Greaser Relationship Specialty Start Date End Date Sariah Vickers ANP 230 [place] [address] PCP - General Family Medicine 09/23/19 Yuri Pierre, PharmD 230 [place] [address] Pharmacist Internal Medicine 05/05/24 Basilio Hall MD 596 [place] [address] Cardiology 05/17/24 Ron Preciado MD [address] [place] [address] Pulmonary Disease 05/17/24 documented as of this encounter
--- OUTSIDE RECORDS SUMMARY | 2024-12-15 11:44 | XMS_ITS | Encounter Summary ---
Author Organization [employer] Address 75 [facility] 7t [place] [address] Care Team Providers Care Apartment House Manager Name Role Phone Sariah Vickers Primary Care Provider [phone] Yuri Pierre PharmD Unavailable [phone] Basilio Hall MD Unavailable [phone] Ron Preciado MD Unavailable [phone] Reason for Visit * Reason Comments Med Refill Encounter Details Date Type Department Care Team (Late st Contact Info) Description 12/10/2024 Refill [facility] MEDICINE 230 [place] [address] Sariah Vickers ANP 230 [place] [address] Type 2 diabetes mellitus with hyperlipidemia (HCC) [...] Description 01/07/2025 9:30 AM EST Clinical Support [address] [address] Azeb Hall, MARTIN 505 [place] [address] 01/11/2025 1:00 PM EST Office Visit [address] [address] Sariah Vickers, ANP [address] [place] [address] 02/03/2025 11:00 AM EST Medication Management [address] [address] Yuri Pierre, PharmD [address] [place] [address] documented as of this encounter Goals Goal [...] as of this encounter Care Teams Apartment House Manager Relationship Specialty Start Date End Date Sariah Vickers ANP 230 [place] [address] PCP - General Family Medicine 09/23/19 Yuri Pierre PharmD 230 [place] [address] Pharmacist Internal Medicine 05/05/24 Basilio Hall MD 596 [place] [address] Cardiology 05/17/24 Ron Preciado MD [address] [place] [address] Pulmonary Disease 05/17/24 documented as of this encounter
--- OUTSIDE RECORDS SUMMARY | 2024-12-15 11:44 | XMS_ITS | Encounter Summary ---
Author Organization [employer] Address 75 [facility] 7t [place] [address] Care Team Providers Care School Patrol Name Role Phone Sariah Vickers Primary Care Provider [phone] Yuri Pierre PharmD Unavailable [phone] Basilio Hall MD Unavailable [phone] Ron Preciado MD Unavailable [phone] Reason for Visit * Reason Comments Med Refill Encounter Details Date Type Department Care Team (Late st Contact Info) Description 10/24/2023 Refill [facility] MEDICINE 230 [place] [address] Sariah Vickers ANP 230 [place] [address] Neck pain Social History Tobacco Use Types [...] Description 01/07/2025 9:30 AM EST Clinical Support [address] [address] Azeb Hall, MARTIN 505 [place] [address] 01/11/2025 1:00 PM EST Office Visit [address] [address] Sariah Vickers ANP [address] [place] [address] 02/03/2025 11:00 AM EST Medication Management [address] [address] Yuri Pierre, MikeD [address] [place] [address] documented as of this encounter Goals Goal [...] documented as of this encounter Care Teams School Patrol Relationship Specialty Start Date End Date Sariah Vickers ANP 230 [place] [address] PCP - General Family Medicine 09/23/19 Yuri Pierre, MikeD [address] [place] [address] Pharmacist Internal Medicine 05/05/24 Basilio Hall MD 596 [place] [address] Cardiology 05/17/24 Ron Preciado MD [address] [place] [address] Pulmonary Disease 05/17/24 documented as of this encounter
--- OUTSIDE RECORDS SUMMARY | 2024-12-15 11:44 | XMS_ITS | Encounter Summary ---
Author Organization [employer] Address 75 [facility] 7t [place] [address] Care Team Providers Care Communication Specialist Name Role Phone Sariah Vickers Primary Care Provider [phone] Yuri Pierre PharmD Unavailable [phone] Basilio Hall MD Unavailable [phone] Ron Preciado MD Unavailable [phone] Reason for Visit * Reason Comments Med Refill Encounter Details Date Type Department Care Team (Late st Contact Info) Description 03/26/2022 Refill [facility] MEDICINE 230 [place] [address] Sariah Vickers ANP 230 [place] [address] Social History Tobacco Use Types Packs/Day Years [...] 01/07/2025 9:30 AM EST Clinical Support [address] [address] Azeb Hall, RN 505 [place] [address] 01/11/2025 1:00 PM EST Office Visit [address] [address] Sariah Vickers ANP [address] [place] [address] 02/03/2025 11:00 AM EST Medication Management [address] [address] Yuri Pierre, PharmD [address] [place] [address] documented as of this encounter Visit Diagnoses Not on filedocumented in this encounter Care Teams Communication Specialist Relationship Specialty Start Date End Date Sariah Vickers ANP [address] [place] [address] PCP - General Family Medicine 09/23/19 Yuri Pierre, PharmD [address] [place] [address] Pharmacist Internal Medicine 05/05/24 Basilio Hall MD 596 [place] [address] Cardiology 05/17/24 Ron Preciado MD [address] [place] [address] Pulmonary Disease 05/17/24 documented as of this encounter
--- OUTSIDE RECORDS SUMMARY | 2024-12-15 11:44 | XMS_ITS | Encounter Summary ---
Author Organization [employer] Address 75 [facility] 7t [place] [address] Care Team Providers Care Putty And Caulking Supervisor Name Role Phone Sariah Vickers Primary Care Provider [phone] Yuri Pierre PharmD Unavailable [phone] Basilio Hall MD Unavailable [phone] Ron Preciado MD Unavailable [phone] Encounter Details Date Type Department Care Team (Late st Contact Info) Description 10/20/2024 Results Follow-Up [facility] 230 [place] [address] Sariah Vickers ANP 230 [place] [address] Prothrombin Time-INR, C-reactive Protein, Amylase, Additional followed-up [...] Description 01/07/2025 9:30 AM EST Clinical Support [address] [address] Azeb Hall RN 505 [place] [address] 01/11/2025 1:00 PM EST Office Visit [address] [address] Sariah Vickers ANP [address] [place] [address] 02/03/2025 11:00 AM EST Medication Management [address] [address] Yuri Pierre PharmD 230 [place] [address] documented as of this encounter Goals Goal [...] documented as of this encounter Care Teams Putty And Caulking Supervisor Relationship Specialty Start Date End Date Sariah Vickers ANP 230 [place] [address] PCP - General Family Medicine 09/23/19 Yuri Pierre, PharmD 230 [place] [address] Pharmacist Internal Medicine 05/05/24 Basilio Hall MD 596 [place] [address] Cardiology 05/17/24 Ron Preciado MD [address] [place] [address] Pulmonary Disease 05/17/24 documented as of this encounter
--- OUTSIDE RECORDS SUMMARY | 2024-12-15 11:44 | XMS_ITS | Encounter Summary ---
Author Organization [employer] Address 75 [facility] 7t [place] [address] Care Team Providers Care Pressure Supervisor Name Role Phone Sariah Vickers Primary Care Provider [phone] Yuri Pierre PharmD Unavailable [phone] Basilio Hall MD Unavailable [phone] Ron Preciado MD Unavailable [phone] Reason for Visit * Reason Comments Med Refill Encounter Details Date Type Department Care Team (Late st Contact Info) Description 01/06/2024 Refill [facility] [address] [place] [address] Sariah Vickers ANP 230 [place] [address] Cervicalgia Social History Tobacco Use Types Packs/Day [...] 01/07/2025 9:30 AM EST Clinical Support [address] [address] Azeb Hall RN 505 [place] [address] 01/11/2025 1:00 PM EST Office Visit [address] [address] Sariah Vickers ANP [address] [place] [address] 02/03/2025 11:00 AM EST Medication Management [address] [address] Yuri Pierre, MikeD [address] [place] [address] documented as of this encounter Goals Goal [...] documented as of this encounter Care Teams Pressure Supervisor Relationship Specialty Start Date End Date Sariah Vickers ANP 230 [place] [address] PCP - General Family Medicine 09/23/19 Yuri Pierre, MikeD [address] [place] [address] Pharmacist Internal Medicine 05/05/24 Basilio Hall MD [address] [place] [address] Cardiology 05/17/24 Ron Preciado MD [address] [place] [address] Pulmonary Disease 05/17/24 documented as of this encounter
--- OUTSIDE RECORDS SUMMARY | 2024-12-15 11:44 | XMS_ITS | Encounter Summary ---
Author Organization [employer] Address 75 [facility] 7t [place] [address] Care Team Providers Care Certified Detention Deputy Name Role Phone Sariah Vickers Primary Care Provider [phone] Yuri Pierre PharmD Unavailable [phone] Basilio Hall MD Unavailable [phone] Ron Preciado MD Unavailable [phone] Reason for Visit * Reason Comments Med Refill Encounter Details Date Type Department Care Team (Late st Contact Info) Description 10/03/2023 Refill [facility] 230 [place] [address] Sariah Vickers ANP 230 [place], [place] [phone] Chronic SI joint pain Social History Tobacco [...] 01/07/2025 9:30 AM EST Clinical Support [address] [address] Azeb Hall, MARTIN 505 [place] [address] 01/11/2025 1:00 PM EST Office Visit [address] [address] Sariah Vickers ANP [address] [place] [address] 02/03/2025 11:00 AM EST Medication Management [address] [address] Yuri Pierre, MikeD [address] [place] [address] documented as of this encounter Goals Goal [...] as of this encounter Care Teams Certified Detention Deputy Relationship Specialty Start Date End Date Sariah Vickers ANP 230 [place] [address] PCP - General Family Medicine 09/23/19 Yuri Pierre, MikeD [address] [place] [address] Pharmacist Internal Medicine 05/05/24 Basilio Hall MD [address] [place] [address] Cardiology 05/17/24 Ron Preciado MD [address] [place] [address] Pulmonary Disease 05/17/24 documented as of this encounter
--- OUTSIDE RECORDS SUMMARY | 2024-12-15 11:44 | XMS_ITS | Encounter Summary ---
Author Organization [employer] Address 75 [facility] 7t [place] [address] Care Team Providers Care Course Instructor Name Role Phone Sariah Vickers Primary Care Provider [phone] Yuri Pierre PharmD Unavailable [phone] Baislio Hall MD Unavailable [phone] Ron Preciado MD Unavailable [phone] Reason for Visit * Reason Comments Med Refill Encounter Details Date Type Department Care Team (Late st Contact Info) Description 06/17/2024 Refill [facility] 230 [place] [address] Sariah Vickers ANP 230 [place], [place] [phone] Neck pain Social History Tobacco Use Types [...] 01/07/2025 9:30 AM EST Clinical Support [address] [address] Azeb Hall RN 505 [place] [address] 01/11/2025 1:00 PM EST Office Visit [address] [address] Sariah Vickers ANP [address] [place] [address] 02/03/2025 11:00 AM EST Medication Management [address] [address] Yuri Pierre, MikeD [address] [place] [address] documented as of this encounter Goals Goal [...] documented as of this encounter Care Teams Course Instructor Relationship Specialty Start Date End Date Sariah Vickers ANP 230 [place] [address] PCP - General Family Medicine 09/23/19 Yuri Pierre, MikeD [address] [place] [address] Pharmacist Internal Medicine 05/05/24 Basilio Hall MD 596 [place] [address] Cardiology 05/17/24 Ron Preciado MD [address] [place] [address] Pulmonary Disease 05/17/24 documented as of this encounter
--- OUTSIDE RECORDS SUMMARY | 2024-12-15 11:44 | XMS_ITS | Encounter Summary ---
Author Organization [employer] Address 75 [facility] 7t [place] [address] Care Team Providers Care Industrial Engineering Director Name Role Phone Sariah Vickers Primary Care Provider [phone] Yuri Pierre PharmD Unavailable [phone] Basilio Hall MD Unavailable [phone] Ron Preciado MD Unavailable [phone] Reason for Visit * Reason Comments Med Refill Encounter Details Date Type Department Care Team (Late st Contact Info) Description 10/17/2023 Refill [facility] MEDICINE 230 [place] [address] Sariah Vickers ANP 230 [place] [address] Neck pain Social History Tobacco Use Types [...] 01/07/2025 9:30 AM EST Clinical Support [address] [address] Azeb Hall, MARTIN 505 [place] [address] 01/11/2025 1:00 PM EST Office Visit [address] [address] Sariah Vickers ANP [address] [place] [address] 02/03/2025 11:00 AM EST Medication Management [address] [address] Yuri Pierre, MikeD [address] [place] [address] documented as of this encounter Goals Goal [...] as of this encounter Care Teams Industrial Engineering Director Relationship Specialty Start Date End Date Sariah Vickers ANP 230 [place] [address] PCP - General Family Medicine 09/23/19 Yuri Pierre, MikeD [address] [place] [address] Pharmacist Internal Medicine 05/05/24 Basilio Hall MD 596 [place] [address] Cardiology 05/17/24 Ron Preciado MD [address] [place] [address] Pulmonary Disease 05/17/24 documented as of this encounter
--- OUTSIDE RECORDS SUMMARY | 2024-12-15 11:44 | XMS_ITS | Encounter Summary ---
Author Organization [employer] Address [address] [facility] 7t [place] [address] Care Team Providers Care Global Sales Director Name Role Phone Sariah Vickers Primary Care Provider [phone] Yuri Pierre PharmD Unavailable [phone] Basilio Hall MD Unavailable [phone] Ron Preciado MD Unavailable [phone] Reason for Visit * Reason Comments Med Refill Encounter Details Date Type Department Care Team (Late st Contact Info) Description 12/12/2024 Refill [facility] MED & PEDS [address] [place] [address] Sariah Vickers ANP 230 [place] [address] Cervicalgia Social History Tobacco Use Types Packs/Day [...] 01/07/2025 9:30 AM EST Clinical Support [address] [address] Azeb Hall RN 505 [place] [address] 01/11/2025 1:00 PM EST Office Visit [facility] MEDICINE [address] [place] [address] Sariah Vickers, ANP [address] [place] [address] 02/03/2025 11:00 AM EST Medication Management [address] [address] Yuri Pierre, PharmD [address] [place] [address] documented as of this encounter Goals Goal [...] as of this encounter Care Teams Global Sales Director Relationship Specialty Start Date End Date Sariah Vickers ANP 230 [place] [address] PCP - General Family Medicine 09/23/19 Yuri Pierre, MikeD 230 [place] [address] Pharmacist Internal Medicine 05/05/24 Basilio Hall MD 596 [place] [address] Cardiology 05/17/24 Ron Preciado MD [address] [place] [address] Pulmonary Disease 05/17/24 documented as of this encounter
--- OUTSIDE RECORDS SUMMARY | 2024-12-15 11:44 | XMS_ITS | Encounter Summary ---
Author Organization [employer] Address 75 [facility] 7t [place] [address] Care Team Providers Care Student Counselor Name Role Phone Sariah Vickers Primary Care Provider [phone] Yuri Pierre PharmD Unavailable [phone] Basilio Hall MD Unavailable [phone] Ron Preciado MD Unavailable [phone] Reason for Visit * Reason Comments Med Refill Encounter Details Date Type Department Care Team (Late st Contact Info) Description 01/06/2024 Refill [facility] MED & PEDS [address] [place] [address] Sariah Vickers ANP 230 [place] [address] Cervicalgia Social History Tobacco Use Types Packs/Day [...] 01/07/2025 9:30 AM EST Clinical Support [address] [address] Azeb Hall RN 505 [place] [address] 01/11/2025 1:00 PM EST Office Visit [address] [address] Sariah Vickers ANP [address] [place] [address] 02/03/2025 11:00 AM EST Medication Management [address] [address] Yuri Pierre, MikeD [address] [place] [address] documented as of this encounter Goals Goal [...] as of this encounter Care Teams Student Counselor Relationship Specialty Start Date End Date Sariah Vickers ANP 230 [place] [address] PCP - General Family Medicine 09/23/19 Yuri Pierre, MikeD [address] [place] [address] Pharmacist Internal Medicine 05/05/24 Basilio Hall MD [address] [place] [address] Cardiology 05/17/24 Ron Preciado MD [address] [place] [address] Pulmonary Disease 05/17/24 documented as of this encounter
--- OUTSIDE RECORDS SUMMARY | 2024-12-15 11:45 | XMS_ITS | Encounter Summary ---
Author Organization [employer] Address 75 [facility] 7t [place] [address] Care Team Providers Care Molecular Genetic Pathologist Name Role Phone Sariah Vickers KAYLEE Primary Care Provider [phone] Yuri Pierre PharmD Unavailable [phone] Basilio Hall MD Unavailable [phone] Ron Preciado MD Unavailable [phone] Reason for Visit * Reason Comments Med Refill Encounter Details Date Type Department Care Team (Late st Contact Info) Description 10/04/2024 Refill [facility] MED & PEDS [address] [place] [address] Zakia Uriostegui, VACUUM CLEANER OPERATOR 230 [place] [address] Type 2 diabetes mellitus with hyperglycemia (CMS/HCC) [...] 01/07/2025 9:30 AM EST Clinical Support [address] [address] Azeb Hall, RN 505 [place] [address] 01/11/2025 1:00 PM EST Office Visit [facility] MEDICINE [address] [place] [address] Sariah Vickers, ANP [address] [place] [address] 02/03/2025 11:00 AM EST Medication Management [address] [address] Yuri Pierre, PharmD [address] [place] [address] documented as of this encounter Goals Goal [...] documented as of this encounter Care Teams Molecular Genetic Pathologist Relationship Specialty Start Date End Date Sariah Vickers ANP 230 [place] [address] PCP - General Family Medicine 09/23/19 Yuri Pierre PharmD 230 [place] [address] Pharmacist Internal Medicine 05/05/24 Basilio Hall MD 596 [place] [address] Cardiology 05/17/24 Ron Preciado MD [address] [place] [address] Pulmonary Disease 05/17/24 documented as of this encounter
--- OUTSIDE RECORDS SUMMARY | 2024-12-15 11:45 | XMS_ITS | Encounter Summary ---
Author Organization [employer] Address 75 [facility] 7t [place] [address] Care Team Providers Care Core Winding Operator Name Role Phone Sariah Vickers Primary Care Provider [phone] Yuri Pierre PharmD Unavailable [phone] Baislio Hall MD Unavailable [phone] Ron Preciado MD Unavailable [phone] Reason for Visit * Reason Comments Med Refill Encounter Details Date Type Department Care Team (Late st Contact Info) Description 12/27/2022 Refill [facility] MEDICINE 230 [place] [address] Sariah Vickers ANP 230 [place] [address] Neck pain Social History Tobacco Use Types [...] 01/07/2025 9:30 AM EST Clinical Support [address] [address] Azeb Hall RN 505 [place] [address] 01/11/2025 1:00 PM EST Office Visit [address] [address] Sariah Vickers ANP [address] [place] [address] 02/03/2025 11:00 AM EST Medication Management [address] [address] Yuri Pierre, MikeD [address] [place] [address] documented as of this encounter Goals Goal [...] Cervicalgia documented in this encounter Care Teams Core Winding Operator Relationship Specialty Start Date End Date Sariah Vickers ANP 230 [place] [address] PCP - General Family Medicine 09/23/19 Yuri Pierre, MikeD 230 [place], [place] [address]40 Pharmacist Internal Medicine 05/05/24 Basilio Hall MD 596 [place], [place] [address] Cardiology 05/17/24 Ron Preciado MD [address] [place] [address] Pulmonary Disease 05/17/24 documented as of this encounter
--- OUTSIDE RECORDS SUMMARY | 2024-12-15 11:45 | XMS_ITS | Encounter Summary ---
Author Organization [employer] Address 75 [facility] 7t [place] [address] Care Team Providers Care Farmworker General Name Role Phone Anthony Ruiz Primary Care Provider [phone] Yuri Pierre PharmD Unavailable [phone] Basilio Hall MD Unavailable [phone] Ron Preciado MD Unavailable [phone] Encounter Details Date Type Department Care Team (Late st Contact Info) Description 09/28/2024 Orders Only [facility] MEDICINE 230 [place] [address] Anthony Ruiz ANP 230 [place] [address] Social History Tobacco Use Types Packs/Day Years [...] 01/07/2025 9:30 AM EST Clinical Support [address] [address] Azeb Hall, RN 505 [place] [address] 01/11/2025 1:00 PM EST Office Visit [address] [address] Anthony Ruiz ANP [address] [place] [address] 02/03/2025 11:00 AM EST Medication Management [address] [address] Yuri Pierre, MikeD [address] [place] [address] documented as of this encounter Goals Goal [...] PM EDT Narrative 10/09/2024 1:20 PM EDT [place] [address] [address] Scan Report Signed Patient: Nuvia Fay MR #: [id number] : 1960 Acct:[id number] Age/Sex: 64 / F ADM Date: 10/08/24 Loc: HO.CT Attending Dr: Ron Preciado MD Ordering Physician: Ron Preciado MD Date of Service: 10/08/24 Procedure(s): CT lung screening Accession Number(s): [id number] cc: Ron Preciado MD; ANTHONY RUIZ NP Report Number: [id number]: Total DLP = 64.00 mGy-cm CLINICAL HISTORY: [...] 10/09/24 1319 DD/ 1318 TD/TT: 10/09/24 1318 Watch Dial Printer: Procedure Note Donotuseinterpreter, Image - 10/09/[address] [place] [address] [address] Scan Report Signed Patient: Nuvia Fay EMR #: [id number] : [id number]:[id number] Age/Sex: 64 / FADM Date: 10/08/24 Loc: .CT Attending Dr: Ron Preciado MD Ordering Physician: Ron Preciado MD Date of Service: 10/08/24 Procedure(s): CT lung screening Accession Number(s): [id number] cc: Ron Preciado MD; ANTHONY RUIZ NP Report Number: [id number]: Total DLP = 64.00 mGy-cm CLINICAL HISTORY: [...] 10/09/24 1319 DD/ 1318 TD/TT: 10/09/24 1318 Watch Dial Printer: [facility] External Provider IMG CT PROCEDURES Edited Result - Final documented in this encounter Visit Diagnoses Not on filedocumented in this encounter Additional Health Concerns Assessment Noted Time PHQ-9 Depression Total Score: 12 024 2:58 PM EDT documented as of this encounter Care Teams Farmworker General Relationship Specialty Start Date End Date Anthony Ruiz ANP 230 [place] [address] PCP - General Family Medicine 09/23/19 Yuri Pierre, PharmD 230 [place] [address] Pharmacist Internal Medicine 05/05/24 Basilio Hall MD [address] [place] [address] Cardiology 05/17/24 Ron Preciado MD [address] [place] [address] Pulmonary Disease 05/17/24 documented as of this encounter
--- OUTSIDE RECORDS SUMMARY | 2024-12-15 11:45 | XMS_ITS | Encounter Summary ---
Author Organization [employer] Address 75 [facility] 7t [place] [address] Care Team Providers Care Baby Attendant Name Role Phone Sariah Vickers Primary Care Provider [phone] Yuri Pierre PharmD Unavailable [phone] Basilio Hall MD Unavailable [phone] Ron Preciado MD Unavailable [phone] Reason for Visit * Reason Onset Date Comments Nurse Triage 01/14/2023 Encounter Details Date Type Department Care Team (Late st Contact Info) Description 01/14/2023 Telephone [facility] MEDICINE 230 [place] [address] Sariah Vickers ANP 230 [place] [address] Nurse Triage Social History Tobacco Use Types [...] 01/14/2023 9:26 AM EST Called pt. Via [employer] mine car dispatcher [phone] Kelly. Pt. States that she has been having a fire feeling in her legs. Its like A burning that goes down her legs . Pt. Unsure if it because of her Diabetes. Pt. Went to [facility] ED for pain on her left side [...] at 10am. Will send note to clinical md do resident urgent care to have note put in chart [...] Severe pain now, pt was seen at [facility] on 01/13 for pain in leg. Pt is still symptomatic The caller accepted this outcome Please contact pt at [phone] (lace stripper needed) documented in this encounter Plan of Treatment Upcoming Encounters Date Type Department Care Team (Late st Contact Info) Description 01/07/2025 9:30 AM EST Clinical Support [address] [address] Azeb Hall RN 505 [place] [address] 01/11/2025 1:00 PM EST Office Visit [address] [address] Sariah Vickers ANP [address] [place] [address] 02/03/2025 11:00 AM EST Medication Management [address] [address] Yuri Pierre, PharmD [address] [place] [address] documented as of this encounter Goals Goal [...] on filedocumented in this encounter Care Teams Baby Attendant Relationship Specialty Start Date End Date Sariah Vickers ANP [address] [place] [address] PCP - General Family Medicine 09/23/19 Yuri Pierre, MikeD 230 [place], [place] 0550640 Pharmacist Internal Medicine 05/05/24 Basilio Hall MD 596 [place], [place] [address]6840 Cardiology 05/17/24 Ron Preciado MD [address] [place] [phone] Pulmonary Disease 05/17/24 documented as of this encounter
--- OUTSIDE RECORDS SUMMARY | 2024-12-15 11:45 | XMS_ITS | Clinical Summary ---
Author Organization [facility] Address [address] [place] [address] Phone Care Team Providers Care Ornamental Ironworking Supervisor Name Role Phone Sariah Vickers NP Primary Care Provider [phone] Social History Tobacco Use Types Packs/Day Years [...] age to complete this topic Care Teams Ornamental Ironworking Supervisor Relationship Specialty Start Date End Date Sariah Vickers NP [address] [place] [phone] PCP - General 12/03/23
--- OUTSIDE RECORDS SUMMARY | 2024-12-15 11:45 | XMS_ITS | Encounter Summary ---
Author Organization [employer] Address 75 [facility] 7t [place] [address] Care Team Providers Care Principal Systems Architect Name Role Phone Sariah Vickers Primary Care Provider [phone] Yuri Pierre PharmD Unavailable [phone] Basilio Hall MD Unavailable [phone] Ron Preciado MD Unavailable [phone] Reason for Visit * Reason Onset Date Comments Appointment Request 09/03/2024 Encounter Details Date Type Department Care Team (Late st Contact Info) Description 09/03/[address] [facility] MEDICINE 230 [place] [address] Sariah Vickers ANP 230 [place], [place] [phone] Appointment Request Social History Tobacco Use Types [...] making the apt. Contact pt at [phone] documented in this encounter Plan of Treatment Upcoming Encounters Date Type Department Care Team ([facility] st Contact Info) Description 01/07/2025 9:30 AM EST Clinical Support [address] [address] Azeb Hall RN 505 [place] [address] 01/11/2025 1:00 PM EST Office Visit [address] [address] Sariah Vickers ANP [address] [place] [address] 02/03/2025 11:00 AM EST Medication Management [address] [place] [address] Yuri Pierre, PharmD 230 [place] [address] documented as of this encounter Goals Goal [...] as of this encounter Care Teams Principal Systems Architect Relationship Specialty Start Date End Date Sariah Vickers ANP 230 [place] [address] PCP - General Family Medicine 09/23/19 Yuri Pierre, PharmD [address] [place] [address] Pharmacist Internal Medicine 05/05/24 Basilio Hall MD [address] [place] [address] Cardiology 05/17/24 Ron Preciado MD [address] [place] [address] Pulmonary Disease 05/17/24 documented as of this encounter
--- OUTSIDE RECORDS SUMMARY | 2024-12-15 11:45 | XMS_ITS | Encounter Summary ---
Author Organization [employer] Address 75 [facility] 7t [place] [address] Care Team Providers Care Driller Machine Name Role Phone Sariah Vickers Primary Care Provider [phone] Yuri Pierre PharmD Unavailable [phone] Basilio Hall MD Unavailable [phone] Ron Preciado MD Unavailable [phone] Reason for Visit * Reason Onset Date Comments Nurse Triage 12/24/2022 Encounter Details Date Type Department Care Team (Late st Contact Info) Description 12/24/2022 Telephone [facility] MEDICINE 230 [place] [address] Sariah Vickers ANP 230 [place] [address] Nurse Triage Social History Tobacco Use Types [...] - 12/24/2022 1:11 PM EST Called pt.via [employer] eng [phone] Benjamin. Pt. States that she wants to [...] regimen and possible referral to a new Hydrator due to pt. Not having jeremie in [...] accepted this outcome Please contact pt at [phone] documented in this encounter Plan of Treatment Upcoming Encounters Date Type Department Care Team (Late st Contact Info) Description 01/07/2025 9:30 AM EST Clinical Support [address] [address] Azeb Hall, RN 505 [place] [address] 01/11/2025 1:00 PM EST Office Visit [address] [address] Sariah Vickers ANP [address] [place] [address] 02/03/2025 11:00 AM EST Medication Management [address] [phone] Yuri Pierre PharmD [address] [place] [address] documented as of this encounter Goals Goal [...] on filedocumented in this encounter Care Teams Driller Machine Relationship Specialty Start Date End Date Sariah Vickers ANP [address] [place] [address] PCP - General Family Medicine 09/23/19 Yuri Pierre, PharmD [address] [place] [address] Pharmacist Internal Medicine 05/05/24 Basilio Hall MD 596 [place] [address] Cardiology 05/17/24 Ron Preciado MD [address] [place] [address] Pulmonary Disease 05/17/24 documented as of this encounter
--- OUTSIDE RECORDS SUMMARY | 2024-12-15 11:45 | XMS_ITS | Encounter Summary ---
Author Organization [employer] Address 75 [facility] 7t [place] [address] Care Team Providers Care Tool Repairer Name Role Phone Sariah Vickers Primary Care Provider [phone] Yuri Pierre PharmD Unavailable [phone] Basilio Hall MD Unavailable [phone] Ron Preciado MD Unavailable [phone] Reason for Visit * Reason Onset Date Comments Referral 08/02/2024 Encounter Details Date Type Department Care Team (Late st Contact Info) Description 08/02/2024 Telephone [facility] MEDICINE 230 [place], [place] [phone] Sariah Vickers ANP 230 [place], [place] [phone] Referral Social History Tobacco Use Types Packs/Day [...] for vertigo therapy. Please contact pt at [phone]. (Bulgarian Speaker) documented in this encounter Plan of Treatment Upcoming Encounters Date Type Department Care Team ([facility] st Contact Info) Description 01/07/2025 9:30 AM EST Clinical Support [facility] MEDICINE [address] [place] [address] Azeb Hall, MARTIN 505 [place] [address] 01/11/2025 1:00 PM EST Office Visit [address] [address] Sariah Vickers ANP 230 [place] [address] 02/03/2025 11:00 AM EST Medication Management [facility] MEDICINE 230 [place] [address] Yuri Pierre, Dileep 230 [place] [address] documented as of this encounter Goals Goal [...] documented as of this encounter Care Teams Tool Repairer Relationship Specialty Start Date End Date Sariah Vickers ANP [address] [place] [address] PCP - General Family Medicine 09/23/19 Yuri Pierre, PharmD [address] [place] [address] Pharmacist Internal Medicine 05/05/24 Basilio Hall MD 596 [place] [address] Cardiology 05/17/24 Ron Preciado MD [address] [place] [address] Pulmonary Disease 05/17/24 documented as of this encounter
--- OUTSIDE RECORDS SUMMARY | 2024-12-15 11:45 | XMS_ITS | Encounter Summary ---
Author Organization [employer] Address 75 [facility] 7t [place] [address] Care Team Providers Care Clay Roaster Name Role Phone Sariah Vickers Primary Care Provider [phone] Yuri Pierre PharmD Unavailable [phone] Basilio Hall MD Unavailable [phone] Ron Preciado MD Unavailable [phone] Reason for Visit * Reason Comments Med Refill Encounter Details Date Type Department Care Team (Late st Contact Info) Description 02/28/2023 Refill [facility] MEDICINE 230 [place] [address] Sariah Vickers ANP 230 [place] [address] Cervicalgia Social History Tobacco Use Types Packs/Day [...] Description 01/07/2025 9:30 AM EST Clinical Support [address] [address] Azeb Hall RN 505 [place] [address] 01/11/2025 1:00 PM EST Office Visit [address] [address] Sariah Vickers ANP [address] [place] [address] 02/03/2025 11:00 AM EST Medication Management [address] [address] Yuri Pierre, MikeD [address] [place] [address] documented as of this encounter Goals Goal [...] Cervicalgia documented in this encounter Care Teams Clay Roaster Relationship Specialty Start Date End Date Sariah Vickers ANP 230 [place] [address] PCP - General Family Medicine 09/23/19 Yuri Pierre, MikeD 230 [place], [place] 1201940 Pharmacist Internal Medicine 05/05/24 Basilio Hall MD 596 [place], [place] [phone] Cardiology 05/17/24 Ron Preciado MD [address] [place] [address] Pulmonary Disease 05/17/24 documented as of this encounter
--- OUTSIDE RECORDS SUMMARY | 2024-12-15 11:45 | XMS_ITS | Encounter Summary ---
Author Organization [employer] Address 75 [facility] 7t [place] [address] Care Team Providers Care Corn Cutter Name Role Phone Sariah Vickers Primary Care Provider [phone] Yuri Pierre PharmD Unavailable [phone] Basilio Hall MD Unavailable [phone] Ron Preciado MD Unavailable [phone] Reason for Visit * Reason Comments Med Refill Encounter Details Date Type Department Care Team (Late st Contact Info) Description 12/19/2022 Refill [facility] MEDICINE 230 [place] [address] Sariah Vickers ANP 230 [place] [address] Vertigo Social History Tobacco Use Types Packs/Day [...] Description 01/07/2025 9:30 AM EST Clinical Support [address] [address] Azeb Hall RN 505 [place] [address] 01/11/2025 1:00 PM EST Office Visit [address] [address] Sariah Vickers ANP [address] [place] [address] 02/03/2025 11:00 AM EST Medication Management [address] [address] Yuri Pierre, MikeD [address] [place] [address] documented as of this encounter Goals Goal [...] giddiness documented in this encounter Care Teams Corn Cutter Relationship Specialty Start Date End Date Sariah Vickers ANP 230 [place] [address] PCP - General Family Medicine 09/23/19 Yuri Pierre, MikeD 230 [place] [address] Pharmacist Internal Medicine 05/05/24 Basilio Hall MD [address] [place] [address] [phone] Cardiology 05/17/24 Ron Preciado MD [address] [place] [address] Pulmonary Disease 05/17/24 documented as of this encounter
--- OUTSIDE RECORDS SUMMARY | 2024-12-15 11:45 | XMS_ITS | Clinical Summary ---
Author Organization [employer] Address [address] [place] [address] Care Team Providers Care Batch Still Operator Name Role Phone Anthony Ruiz KAYLEE Primary Care Provider [phone] Yuri Pierre PharmD Unavailable [phone] Basilio Hall MD Unavailable [phone] Ron Preciado MD Unavailable [phone] Allergies Active Allergy Reactions Criticality Noted [...] the morning. Active Lactobacillus-In ulin ([facility] [employer] [facility]) capsule 023 Active Xolair 150 MG/ML [...] EVENING 90 tablet 1 Active Continuous Glucose Active Directory Architect (FreeStyle Jalil 3 Sharon) device 1 each Once per day. Use [...] tablet 025 Active Blood Glucose Monitoring Suppl (RightAnswerse) w/Device kit 1 each 3 times daily. [...] SUGAR 50 tablet 12 024 2024 Discontinued glucagon (Baqsimi Two Pack) 3 MG/DOSE nasal powderIndication s:Type 2 diabetes mellitus with diabetic neuropathy, with long-term current use of insulin ([facility]) Administer 3 mg into affected [...] to seal bleeding vessel Will refer to pediatric oncologist for followup if needed Return precautions for [...] She is currently connected with services through [facility]. Pt needing additional support [...] her family. She will continue services with [facility] for OP therapy and psychiatry services. clinician will be available if needed during next medical appointment. PLAN: (check all that apply) Continue with current services (defined as services in the past 12 months) . Pt is engaged with OP therapy and psychiatry services with [facility] @ [facility] Excessive attrition of teeth, generalized 2023 Right [...] her family. She will continue services with [facility] for OP therapy and psychiatry services. clinician will be available if needed during next medical appointment. PLAN: (check all that apply) Continue with current services (defined as services in the past 12 months) . Pt is engaged with OP therapy and psychiatry services with [facility] @ [facility] Fibromyalgia 07/31/2022 Asthma-COPD overlap syndrome (CMS/HCC) Right [...] for possible plantar fasciitis -referred today to payroll services analyst x ongoing discomfort -may need orthopedic shoes [...] psychiatry with [facility] at [facility]. Sees psych provider every two months and therapist bi-weekly. Pt will reach out to clinician as needed. Assessment & Plan (04/10/2023 11:08 AM EST): PLAN: (check all that apply) Behavioral Health Integration Plan Patient Self Plan Patient to reach out to [facility] team as needed Assessment & Plan (08/07/2022 [...] Patient may request to speak with a [facility] during next PCP visit, if needed Chronic [...] 10/29/2022 Acute asthma exacerbation 07/31/2022 COPD exacerbation ([facility]) 07/31/2022 05/17/2024 Assessment & Plan (10/27/2023 4:48 [...] organization. Date Type Department Care Team Description 12/15/2024 Telephone [facility] [address] [place] [address] Anthony Ruiz ANP Med Refill 12/13/2024 Refill [facility] [address] [place] [address] Anthony Ruiz ANP Neck pain; Cervicalgia 12/12/2024 Refill [facility] [address] [place] [address] Anthony Ruiz ANP Cervicalgia 12/10/2024 Refill [facility] [address] [place] [address] Anthony Ruiz ANP Type 2 diabetes mellitus with hyperlipidemia (HCC) 12/09/2024 Telephone [facility] [address] [place] [address] Anthony Ruiz ANP Results 12/08/2024 Orders Only GENERIC EXTERNAL DATA DEPARTMENT Provider, Generic External Data 12/07/2024 Refill [facility] [address] [place] [address] Anthony Ruiz ANP 12/03/2024 10:20 AM EDT Office Visit [facility] [address] [address] Jess Coyne MD Acute bronchitis, unspecified organism (Primary Dx); Severe persistent asthma without complication (HCC) 12/02/2024 Refill [facility] [address] [place] [address] Anthony Ruiz ANP Type 2 diabetes mellitus with diabetic neuropathy, with long-term current use of insulin (HCC) 12/01/2024 Refill [facility] [address] [place] [address] Debra Faye MD Chronic bilateral low back pain, unspecified whether sciatica present 11/24/2024 Refill [facility] [address] [place] [address] Anthony Ruiz ANP Essential hypertension; Severe persistent asthma without complication (HCC) 11/23/2024 Orders Only [facility] [address] [place] [address] Anthony Ruiz ANP 11/19/2024 Refill [facility] [address] [place] [address] Chava Presley MD 11/16/2024 Refill [facility] [address] [place] [address] Anthony Ruiz ANP Type 2 diabetes mellitus with diabetic neuropathy, with long-term current use of insulin (CMS/HCC) 11/15/2024 Travel 11/14/2024 Refill [facility] [address] [place] [address] Anthony Ruiz ANP Cervicalgia 11/12/2024 Refill [facility] [address] [place] [address] Anthony Ruiz ANP Neck pain 11/11/2024 Refill [facility]ENT[facility] [address] [place] [address] Yogesh Gomez, JOHN 11/10/2024 3:30 PM EDT Immunization [facility] [address] [place] [address] Yohana Quinn RN Encounter for immunization 11/10/2024 Travel 11/09/2024 9:00 AM EDT Office Visit [facility] [address] [place] [address] Chava Presley MD Type 2 diabetes mellitus with hyperlipidemia (CMS/HCC) (Primary Dx) 11/09/2024 Telephone [facility] [address] [place] [address] Azeb Hall RN 11/09/2024 Travel 11/08/[address] [address] Anthony Ruiz ANP Nurse Triage 11/05/2024 2:30 PM EDT Office Visit [address] [address] Hallie Tapia MD Boils (Primary Dx) 11/05/2024 Travel 11/03/[address] [address] Anthony Ruiz ANP Results 11/01/2024 2:45 PM EDT Office Visit [address] [phone] Reta Sue MD Vaginal bleeding (Primary Dx); Dietary counseling; Exercise counseling; Class 2 obesity without serious comorbidity with body mass index (BMI) of 35.0 to 35.9 in adult, unspecified obesity type; Vulvar itching; Constipation, unspecified constipation type; Hemorrhoids, unspecified hemorrhoid type 11/01/2024 Travel 10/29/2024 Refill [facility] [address] [place] [address] Anthony Ruiz ANP Neck pain 10/26/2024 Results Follow-Up [address] [address] Anthony Ruiz ANP Thyroid Peroxidase Antibodies, Cardiolipin Antibodies (IgA,IgG,IgM) 10/25/[address] [address] Anthony Ruiz ANP 10/23/2024 Refill [facility] [address] [place] [address] Anthony Ruiz ANP 10/22/2024 Orders Only GENERIC EXTERNAL DATA DEPARTMENT Provider, Generic External Data 10/20/2024 Results Follow-Up [address] [address] Anthony Ruiz ANP Prothrombin Time-INR, C-reactive Protein, Amylase, Additional followed-up results: 7 10/19/2024 Refill [facility] [address] [place] [address] Anthony Ruiz ANP Cervicalgia 10/14/2024 1:30 PM EDT Office Visit [facility] [address] [place] [phone] Anthony Ruiz ANP Type 2 diabetes mellitus with hyperlipidemia (CMS/HCC) (CMS/HCC) (Primary Dx); Chronic pain of both knees; Chronic SI joint pain; Primary osteoarthritis of both knees; Essential hypertension; Long-term current use of opiate analgesic; OKEEFE (nonalcoholic steatohepatitis); Asthma-COPD overlap syndrome (CMS/HCC) 10/14/2024 Travel 10/13/2024 10:40 AM EDT Office Visit [facility] [address] [place] [address] Chava Presley MD Essential hypertension (Primary Dx) 10/13/2024 Travel 10/12/2024 Orders Only GENERIC EXTERNAL DATA DEPARTMENT Provider, Generic External Data 10/09/2024 Refill [facility] [address] [place] [address] Anthony Ruiz ANP Severe persistent asthma without complication 10/06/2024 Travel 10/04/2024 Refill [facility] [address] [place] [address] Zakia Uriostegui NP Type 2 diabetes mellitus with hyperglycemia (CMS/HCC) 10/01/2024 11:00 AM EDT Clinical Support [facility] [address] [place] [phone] Azeb Hall, RN Neck pain 10/01/2024 Telephone [facility] [address] [place] [address] Azeb Hall, RN 10/01/2024 Travel 09/30/2024 Telephone [facility] [address] [place] [address] Anthony Ruiz ANP Referral 09/30/2024 Telephone [facility] [address] [place] [phone] Anthony Ruiz ANP Referral 09/30/2024 Refill [facility] [address] [place] [address] Anthony Ruiz ANP Chronic SI joint pain 09/28/2024 Orders Only [facility] [address] [place] [address] Anthony Ruiz ANP 09/25/2024 Refill [facility] [address] [place] [address] Anthony Ruiz ANP Chronic SI joint pain; Essential hypertension; Severe persistent asthma without complication 09/24/2024 2:00 PM EDT Office Visit [facility] [address] [place] [address] Juan, Luisa, OD Diabetes type 2, no ocular involvement (CMS/HCC) (Primary Dx); Mixed type age-related cataract, both eyes; Lesion of left lower eyelid; Presbyopia 09/24/2024 Travel 09/19/2024 Refill [facility] [address], [place] [phone] Debra Faye MD Cervicalgia 09/16/2024 Refill [facility] [address], [place] [phone] Zakia Uriostegui, MARKO Type 2 diabetes mellitus with hyperglycemia (CMS/HCC); [...] 01/07/2025 9:30 AM EST Clinical Support [address] [address] Azeb Hall, RN [address] [place] [address] 01/11/2025 1:00 PM EST Office Visit [address] [address] Anthony Ruiz, KAYLEE [address] [place] [address] 02/03/2025 11:00 AM EST Medication Management [address] [address] Yuri Pierre, PharmD [address] [place] [phone] Health Maintenance Due Date Last Done Comments [...] Blood Pressure 133/91(2024 9:51 AM EDT) No Phanis-Aida Medina, PharmD Record Your Blood Sugar As Directed General No Phanis-GambAida buck, PharmD Hemoglobin A1c < 7 Result Component 6.6( 1:54 PM EDT) No Phanis-Gambl ciara, Aida, PharmD Procedures Procedure Name Priority Date/Time Associated [...] WITH REFLEX Routine 10/22/2024 10:49 AM EDT [id number] I ANTIBODIES (IGG, IGA, IGM) Routine 10/22/2024 10:49 AM EDT ACTIN (SMOOTH MUSCLE) ANTIBODY (IGG) Routine 10/22/2024 10:49 AM EDT CARDIOLIPIN AB (IGA,IGG,IGM) Routine 10/22/2024 10:49 AM EDT THYROID PEROXIDASE ANTIBODIES Routine 10/22/2024 10:49 AM EDT POCT GLYCATED HEMOGLOBIN, TOTAL Routine 10/14/2024 1:54 PM EDT Type 2 diabetes mellitus with hyperlipidemia (CMS/HCC) ([facility]/HCC) POCT GLUCOSE Routine 10/14/2024 1:52 PM EDT [...] PM EDT Narrative 12/08/2024 2:34 PM EDT [place] [address] XRay Report Signed Patient: Nuvia Fay MR #: [id number] : 1960 Acct:[id number] Age/Sex: 64 / F ADM Date: 12/08/24 Loc: .ED Attending Dr: Ordering Physician: Rosangela Ventura Date of Service: 12/08/24 Procedure(s): XR chest 2V Accession Number(s): [id number] cc: Rosangela Ventura; ANTHONY RUIZ NP Reason [...] Kelvin Eldridge MD 12/08/2024 02:31 PM EDT Dictated By: Kelvin Eldridge MD Signed By: <Electronically signed by Kelvin Eldridge MD in OV> 12/08/24 1431 DD/ 1421 TD/TT: 12/08/24 1428 Construction Supervisor: Procedure Note Donotuseinterpreter, Image - 12/08/2024 [place] [id number] [place] [address] XRay Report Signed Patient: Nuvia Fay EMR #: [id number] : 1960cct:[id number] Age/Sex: 64 / FADM Date: 12/08/24 Loc: HO.ED Attending Dr: Ordering Physician: Rosangela Ventura Date of Service: 12/08/24 Procedure(s): XR chest 2V Accession Number(s): [id number] cc: Rosangela Ventura; ANTHONY RUIZ NP Reason [...] Kelvin Eldridge MD 12/08/2024 02:31 PM EDT Dictated By: Kelvin Eldridge MD Signed By: <Electronically signed by Kelvin Eldridge MD in OV> 12/08/24 1431 DD/ 1421 TD/TT: 12/08/24 1428 Construction Supervisor: [facility] External Provider IMG XR PROCEDURES Final Result * Influenza A B2 ID NOW (Bailey) (12/08/2024 2:09 PM EDT) IDNOW SERIAL# [id number] [facility] Influenza A Negative Negative [facility] Influenza B2 Negative Negative [facility] Influenza A B2 Note See Note [facility] Comment:The Bailey ID NOW In [...] LAB MICROBIOLOGY - GENERAL ORDERABLES Final Result [facility] [address] [place] [address] [phone] * COVID-19 ID NOW ([email or web address]) (12/08/2024 2:09 PM EDT) IDNOW SERIAL# [id number] [facility] COVID-19 TEST Negative Negative [facility] COVID-19 NOTE See Note [facility] Comment: Results are for the identification of SARS-CoV2 RNA. TheSARS-CoV2 RNA is generally detectable in respiratory samplesduring the acute phase of infection. Positive results areindicative of the presence of SARS-CoV-2 RNA; clinicalcorrelation with patient history and other diagnosticinformation is necessary to determine patient infectionstatus. Positive results do not rule out bacterial infectionor co- infection with other viruses.Testing facilities within the [facility] and itsterritories are required to report all [...] GNOSTICS ORDERABLES Final Result Performing Organization Address [facility]/ZIP Co de Phone Number [facility] [address] [place] [phone] * High Sensitivity Troponin I (12/08/2024 2:09 PM EDT) [facility] TROPONIN I HIGH SENSITIVITY <2.7 <3.5 - 17.0 ng/L [facility] Comment:The Bailey high sens itivity Troponin-I results should beused in conjunction with other diagnostic information suchas ECG, clinical observations and information, and patientsymptoms to aid in the diagnosis of ME. 12/08/2024 2:09 PM EDT 12/08/2024 2:13 PM EDT Generic External Data Provider LAB BLOOD ORDERAB LES Final Result Performing Organization Address [facility]/ZIP Co de Phone Number [facility] [address] [place] [phone] * (ABNORMAL) CBC auto differential (12/08/2024 2:09 PM EDT) [facility] White Blood Count 7.6 4.8 - 10.8 X10*3/uL [facility] Red Blood Count 4.67 4.20 - 5.50 X10*6/uL [facility] Hemoglobin 14.7 12.0 - 16.0 g/dl [facility] Hematocrit 44.2 37.0 - 47.0 % [facility] Mean Corpuscular Volume 94.6 80.0 - 98.0 fL [facility] Mean Corpuscular Hemoglobin 31.5 27.0 - 33.0 pg [facility] Mean Corpuscular HGB Conc 33.3 31.0 - 35.0 g/dl [facility] Red Cell Distribution Width 12.9 11.0 - 16.0 % [facility] Platelet Count 268 160 - 400 X10*3/uL [facility] Mean Platelet Volume 9.2(L) 9.4 - 12.3 fL [facility] Neutrophils Percent Auto 82.1(H) 45 - 73 % [facility] Imm Gran Pct Auto 0.3 0.0 - 0.4 % [facility] Lymphocytes Percent Auto 16.1(L) 20 - 40 % [facility] Monocytes Percent Auto 0.8(L) 2 - 11 % [facility] Eosinophils Percent Auto 0.3 0 - 4 % [facility] Basophils Percent Auto 0.4 0 - 2 % [facility] NRBC Pct Auto 0.0 0.0 - 0.2 /100WBC [facility] Neutrophils Absolute Auto 6.2 2.0 - 8.3 x10*3/uL [facility] Imm Gran Abs Auto 0.02 0.00 - 0.03 X10*3/uL [facility] Lymphocytes Absolute Auto 1.2 1.2 - 4.9 X10*3/uL [facility] Monocytes Absolute Auto 0.1 0.1 - 1.2 X10*3/uL [facility] Eosinophils Absolute Auto 0.0 0.0 - 0.4 X10*3/uL [facility] Basophils Absolute Auto 0.0 0.0 - 0.2 X10*3/uL [facility] NRBC Abs Auto 0.000 0.0 - 0.012 X10*3/uL [facility] 12/08/2024 2:09 PM EDT 12/08/2024 2:13 PM EDT us Generic External Data Provider LAB BLOOD ORDERAB LES Final Result [facility] [address] [place] [address] [phone] * Magnesium (12/08/2024 2:09 PM EDT) Magnesium 2.1 1.6 - 2.6 mg/dL [facility] 12/08/2024 2:09 PM EDT 12/08/2024 2:13 PM EDT us Generic External Data Provider LAB BLOOD ORDERAB LES Final Result [facility] [address] [place] [address] [phone] * (ABNORMAL) Comprehensive Metabolic Panel (12/08/2024 2:09 PM EDT) Sodium 141 135 - 145 mmol/L [facility] Potassium 3.7 3.3 - 5.1 mmol/L [facility] Chloride 109(H) 96 - 108 mmol/L [facility] Carbon Dioxide 25 22 - 29 mmol/L [facility] Anion Gap 11(L) 12 - 20 [facility] Urea Nitrogen (BUN) 13 9 - 16 mg/dL [facility] Creatinine, Serum 0.90 0.5 - 1.4 mg/dL [facility] Creatinine Clr Calc Pharmacy 64.2 [facility] Comment:Provided height and weight: 152.4 cm,92.896 kg.eGFR (calculated from the MDRD study equation) and eCrCl(calculated from the Cockcroft-Gault equation) are based ondifferent parameters and may not yield comparable results.If eCrCl result is absurd, please check patient'sheight/weight. Estimated Glomerular Filt Rate >60 [facility] Comment:Chronic Kidney Disea se: Estimated GFR < 60 mL/min/1.11o7Irgeeu Kidney Disease: Estimated GFR < 15 mL/min/1.73m2 Glucose 214(H) 60 - 115 mg/dL [facility] Calcium 9.8 8.4 - 10.2 mg/dL [facility] Bilirubin, Total 0.3 0.0 - 1.0 mg/dL [facility] Aspartate Amino Transferase 28 5 - 31 U/L [facility] Alanine Aminotransferase 16 0 - 31 U/L [facility] Total Protein 7.4 6.5 - 8.0 g/dL [facility] Albumin Level 4.2 3.5 - 5.0 g/dL [facility] Alkaline Phosphatase 101 39 - 117 U/L [facility] 12/08/2024 2:09 PM EDT 12/08/2024 2:13 PM EDT us Generic External Data Provider LAB BLOOD ORDERAB LES Final Result Performing Organization Address [facility] Co de Phone Number [facility] [address] [place] [phone] * Bacterial Vaginosis Panel (11/01/2024 12:00 AM EDT) [facility] TRICHOMONAS VAGINALIS DETECTION BY PCR NOT DETECTED Not Detect [facility] BACTERIAL VAGINOSIS DETECTION BY PCR NEGATIVE Negative [facility] Comment:The BV organism targ ets [...] DETECTION BY PCR NOT DETECTED Not Detect [facility] Eufemia glab krusei PCR NOT DETECTED Not Detect [facility] Swab Vaginal structure / Unknown 11/01/2024 11/01/2024 us Reta Sue MD LAB MICROBIOLOGY - GENERAL ORD ERABLES Final Result Performing Organization Address [facility] Co de Phone Number [facility] [address] [place] [phone] * Ivlo-[id number] I Antibodies (IgG, IgA, IgM) (10/22/2024 10:49 AM EDT) B2 Glycoprotein I IgG Antibody <2.0 <20.0 U/mL [facility] Comment:Value Interpretatio n----- < 20.0 Antibody not detected> or = 20.0 Antibody detected B2 Glycoprotein I IgM Antibody <2.0 <20.0 U/mL [facility] Comment:Value Interpretation ----- < 20.0 Antibody not detected> or = 20.0 Antibody detected B2 Glycoprotein I IgA Antibody <2.0 <20.0 U/mL [facility] Comment: Value Interpretation----- < 20.0 Antibody not detected> or = 20.0 Antibody detectedThe antiphospholipid antibody syndrome (APS) is aclinical- pathologic correlation that includes aclinical event (e.g. arterial or venous thrombosis, morbidity) and persistent positiveantiphospholipid antibodies (IgM, IgG Cardiolipin aaj6SMO antibodies greater than the 99th percentile;or a [...] therapy or aging.For additional information, please refer [email or web address].Vollee/faq/[email or web address](This link is being provided for informational/educational purposes only.)THIS TEST WAS PERFORMED AT:[employer] [id number] [place] [address]LWJUELGDEAN CASAS MD,PHD 10/22/2024 10:4 9 AM EDT 10/22/2024 10:49 AM EDT us Generic External Data Provider LAB BLOOD ORDERAB LES Final Result [facility] [address] [place] [phone] * (ABNORMAL) Thyroid Peroxidase Antibodies (10/22/2024 10:49 AM EDT) Thyroid Peroxidase Antibodies >900(A) <9 IU/mL [facility] Comment:THIS TEST WAS PERFOR MED AT:[employer] [place] [id number] WARREN MD 10/22/2024 10:4 9 AM EDT 10/22/2024 10:49 AM EDT us Generic External Data Provider LAB BLOOD ORDERAB LES Final Result Performing Organization Address [facility]/ZIP Co de Phone Number [facility] [address] [place] [phone] * (ABNORMAL) Actin (Smooth Muscle) Antibody (IgG) (10/22/2024 10:49 AM EDT) Only the most recent of2 resultswithin the time period is included. Smooth Muscle Antibody 47(A) <20 U [facility] Comment:Reference Range: <20 U: Negative>or=20 [...] with AIH type 1.THIS TEST WAS PERFORMED AT:[id number] [place] [address]UUDNTQZDEAN CASAS MD,PHD 10/22/2024 10:4 9 AM EDT 10/22/2024 10:49 AM EDT us Generic External Data Provider LAB BLOOD ORDERAB LES Final Result Performing Organization Address City/[facility]/ZIP Co de Phone Number [facility] [address] [place] [phone] * Lupus Anticoagulant Evaluation with Reflex (10/22/2024 10:49 AM EDT) Lupus Interpretation see note [facility] Comment:A Lupus Anticoagulan t is not detected.Reference Range: Not DetectedFor additional information, please refer [email or web address].Joost/faq/[email or web address](This link is being provided for informational/educational purposes only.)This interpretation is based on the following testresults. PTT (LAC) Screen 33 <=40 sec [facility] DRVVT Screen 35 <=45 sec [facility] Comment:THIS TEST WAS PERFOR MED AT:[employer] [id number] [place] [address]HDZGVIPDEAN CASAS MD,PHD dRVVT Confirmation [facility] dRVVT 1:1 Mix [facility] DRVVT 1:1 Mix Interpretation [facility] Hexagonal Phase Neutralization [facility] Thrombin Clotting Time [facility] 10/22/2024 10:4 9 AM EDT 10/22/2024 10:49 AM EDT us Generic External Data Provider LAB BLOOD ORDERAB LES Final Result [facility] [address] [place] [address] [phone] * Cardiolipin Antibodies (IgA,IgG,IgM) (10/22/2024 10:49 AM EDT) Cardiolipin Antibody (IgG) <2.0 GPL-U/mL [facility] Comment:Value Interpretation ----- < 20.0 Antibody not detected> or = 20.0 Antibody detected Cardiolipin Antibody (IgM) <2.0 MPL-U/mL [facility] Comment: Value Interpretation----- < 20.0 Antibody not detected> or = 20.0 Antibody detectedThe antiphospholipid antibody syndrome (APS) is aclinical- pathologic correlation that includes aclinical event (e.g. arterial or venous thrombosis, morbidity) and persistent positiveantiphospholipid antibodies (IgM, IgG Cardiolipin [id number] antibodies greater than the 99th percentile; ora [...] therapy or aging.For additional information, please refer tohttp://education.Joost/faq/YZM119(This link is being provided for informational/educational purposes only.)THIS TEST WAS PERFORMED AT:[facility] [employer] [place] [phone] WARREN MD 10/22/2024 10:4 9 AM EDT 10/22/2024 10:49 AM EDT Generic External Data Provider LAB BLOOD ORDERAB LES Final Result [facility] [address] [place] [address] [phone] * (ABNORMAL) POCT HGB A1C (10/14/2024 1:54 PM EDT) Hemoglobin A1C 6.6(A) 4.0 - 5.7 % QC Media Lot # [id number] Lot# Expiration Date [id number] Blood 10/14/2024 1:54 PM EDT us Anthony Ruiz ANP POINT OF CARE TEST ENTER/EDIT OR DERABLES Final Result * POCT Glucose (10/14/2024 1:52 PM EDT) Pathologist [facility] Glucose Blood, POC 121 60 - 200 mg/dL QC Media Lot # [id number] Lot# Expiration Date [id number] Blood Capillary blood specimen / Unknown 10/14/2024 1:52 PM EDT us Anthony Ruiz ANP POINT OF CARE TEST ENTER/EDIT OR DERABLES Final Result * (ABNORMAL) TSH with Reflex to Free T4 (10/12/2024 2:10 PM EDT) [facility] TSH reflex Free T4 6.80(H) 0.32 - 4.0 uIU/mL [facility] 10/12/2024 2:10 PM EDT 10/12/2024 2:10 PM EDT Generic External Data Provider LAB BLOOD ORDERAB LES Final Result Performing Organization Address [facility] Co de Phone Number [facility] [address] [place] [phone] * Prothrombin Time-INR (10/12/2024 2:10 PM EDT) [facility] Prothrombin Time 10.9 10.9 - 12.4 SEC [facility] INTERNATIONAL NORM RATIO 1.0 0.9 - 1.1 [facility] Comment:INTERNATIONAL NORMAL IZED RATIO (INR) [...] Final Result Performing Organization Address [facility] Co de Phone Number [facility] [address] [place] [address] [phone] * C-reactive Protein (10/12/2024 2:10 PM EDT) Pathologist [facility] C Reactive Protein 0.31 < or = 0.50 mg/dL [facility] 10/12/2024 2:10 PM EDT 10/12/2024 2:10 PM EDT us Generic External Data Provider LAB BLOOD ORDERAB LES Final Result [facility] [address] [place] [address] [phone] * (ABNORMAL) REX Screen,IFA, with Reflex to Titer and Pattern (10/12/2024 2:10 PM EDT) Pathologist [facility] Anti Nuclear Antibody Screen POSITIV E(A) NEGATIVE [facility] Comment:REX IFA is a first l ine screen for detecting thepresence of up to approximately 150 autoantibodies invarious autoimmune diseases. A positive REX IFA resultis suggestive of autoimmune disease and reflexes totiter and pattern. Further laboratory testing may beconsidered if clinically indicated.For additional information, please refer tohttp://education.[employer]/faq/SPB864(This link is being provided for informational/educational purposes only.)THIS TEST WAS PERFORMED AT:[facility] [address] [phone] WARREN MD REX Titer 1:1280( A) titer [facility] Comment:Reference Range <1:4 0 Negative 1:40-1:80 Low Antibody Level >1:80 Elevated Antibody Level REX Pattern Nuclear , Homogen eous(A) [facility] Comment:Homogeneous pattern is associated with systemic lupuserythematosus (SLE), drug-induced lupus and juvenileidiopathic arthritis.AC-1: HomogeneousInternational Consensus on REX Patterns(https://doi.org/10.1515/kpav-2216-1830)THIS TEST WAS PERFORMED AT:[facility] [place] [phone] WARREN MD REX TITER 2 (REF LAB) [facility] REX Pattern 2 TNP [facility] REX TITER 3 [facility] R[facility] PATTERN 3 [facility] 10/12/2024 2:10 PM EDT 10/12/2024 2:10 PM EDT us Generic External Data Provider LAB BLOOD ORDERAB LES Final Result Performing Organization Address City/[facility]/ZIP Co de Phone Number [facility] [address] [place] [phone] * T4, Free (10/12/2024 2:10 PM EDT) Free T4 (Free Thyroxine) 0.99 0.71 - 1.85 ng/dL [facility] 10/12/2024 2:10 PM EDT 10/12/2024 2:10 PM EDT Generic External Data Provider LAB BLOOD ORDERAB LES Final Result Performing Organization Address [facility] Co de Phone Number [facility] [address] [place] [phone] * Lipase (10/12/2024 2:10 PM EDT) Pathologist [facility] Lipase 20 8 - 78 U/L [facility] 10/12/2024 2:10 PM EDT 10/12/2024 2:10 PM EDT Generic External Data Provider LAB BLOOD ORDERAB LES Final Result Performing Organization Address [facility] Co de Phone Number [facility] [address] [place] [phone] * (ABNORMAL) Hemoglobin A1c (10/12/2024 2:10 PM EDT) Pathologist [facility] Hemoglobin A1c 6.5(H) <6.0 % [facility] Comment:Hemoglobin A1C Refer ence Range Adults: 4.8 - 6.0 % Non diabetic: < 6.0 % Goal: < 7.0 %Additional Action Suggested: > 8.0 %Note: Hemoglobin A1c results are invalid for patients with abnormal amounts of HbF. Blood transfusions may impact the HbA1c concentration in the patient sample. Estimated Average Glucose 140 mg/dL [facility] Comment:eAG = Estimated ave rage glucose which is %A1C expressed asaverage glucose, using the formula of the S6F-WxzadskZxzdvod Glucose study (ADAG), Diabetes Care, Vol.31,#8,2007 10/12/2024 2:10 PM EDT 10/12/2024 2:10 PM EDT us Generic External Data Provider LAB BLOOD ORDERAB LES Final Result Performing Organization Address [facility] Co de Phone Number [facility] [address] [place] [phone] * Ferritin (10/12/2024 2:10 PM EDT) Ferritin 69 10 - 250 ng/mL [facility] 10/12/2024 2:10 PM EDT 10/12/2024 2:10 PM EDT us Generic External Data Provider LAB BLOOD ORDERAB LES Final Result Performing Organization Address [facility] Co de Phone Number [facility] [address] [place] [phone] * Amylase (10/12/2024 2:10 PM EDT) Amylase 36 28 - 100 U/L [facility] 10/12/2024 2:10 PM EDT 10/12/2024 2:10 PM EDT us Generic External Data Provider LAB BLOOD ORDERAB LES Final Result Performing Organization Address [facility] Co de Phone Number [facility] [address] [place] [phone] * CT Lung Screening Low dose (10/09/2024 1:18 PM EDT) Anatomical Region Laterality Modality Lung Computed Tomogra phy 10/09/2024 1:18 PM EDT Narrative 10/09/2024 1:20 PM EDT [address] [address] [address] Scan Report Signed Patient: Nuvia Fay MR #: [id number] : 1960 Acct:[id number] Age/Sex: 64 / F ADM Date: 10/08/24 Loc: HO.CT Attending Dr: Ron Preciado MD Ordering Physician: Ron Preciado MD Date of Service: 10/08/24 Procedure(s): CT lung screening Accession Number(s): [id number] cc: Ron Preciado MD; ANTHONY RUIZ NP Report Number: [id number]: Total DLP = 64.00 mGy-cm CLINICAL HISTORY: [...] in OV> 10/09/24 1319 DD/ 131 TD/TT: 10/09/241317 Construction Supervisor: Procedure Note Donotuseinterpreter, Image - 10/09/[address] [address] [address] Scan Report Signed Patient: Nuvia Fay EMR #: [id number] : 1960cct:[id number] Age/Sex: 64 / FADM Date: 10/08/24 Loc: .CT Attending Dr: Ron Preciado MD Ordering Physician: Ron Preciado MD Date of Service: 10/08/24 Procedure(s): CT lung screening Accession Number(s): [id number] cc: Ron Preciado MD; ANTHONY RUIZ NP Report Number: [id number]: Total DLP = 64.00 mGy-cm CLINICAL HISTORY: [...] 10/09/24 1319 DD/ 1318 TD/TT: 10/09/24 1318 Construction Supervisor: [facility] External Provider IMG CT PROCEDURES Edited [...] - 10/01/2024 10:43 AM EDT .UTOX cup Lot#[id number] Exp. 11/23/25 Internal Pass Control [facility] POINT OF CARE TEST ENTER/EDIT OR DERABLES Final Result * Hepatitis C Antibody ([facility]) (08/06/2024) Pathologist [facility] Hepatitis C Ab Nonreactive Blood 08/06/2024 Result [facility] Provider MD LAB BLOOD ORDERABLES Kelsey l Result * HIV Ab/Ag ([facility]) (08/06/2024) Pathologist [facility] HIV Ag/Ab Nonreactive Blood 08/06/2024 Result [facility] Provider MD LAB BLOOD ORDERABLES Kelsey l Result * (ABNORMAL) Lipid Panel, Standard (06/18/2024 10:18 AM EDT) Triglycerides 122 <150 mg/dL [facility] Comment:Desirable Triglyceri de: less than 150 mg/dLBorderline High Triglyceride 150-199 mg/dLHigh Triglyceride: 200-499 mg/dLVery High Triglyceride: greater than or equal to 5OO mg/dL Cholesterol 216(H) <200 mg/dL [facility] Comment:Desirable Cholestero l: less than 200 mg/dLBorderline High Cholesterol: 200-239 mg/dLHigh Cholesterol: greater than 239 mg/dL LDL Cholesterol Calculated 128(H) <100 mg/dL [facility] Comment:Desirable LDL: less than 100 mg/dLNear Optimal/Above Optimal LDL: 110- 129 mg/dLBorderline High LDL: 130-159 mg/dLHigh LDL: 160-189 mg/dLVery High LDL: greater than or equal to 190 mg/dL HDL Cholesterol 64 >40 mg/dL [facility] Comment:Desirable HDL: great er than 40 mg/dL Note: This HDL assay may give artificially low results in patients with liver disease. Blood Venous blood specimen / Unknown 06/18/2024 10:18 AM EDT 06/18/2024 11:08 AM EDT us Anthony Ruiz ANP LAB BLOOD ORDERABLES Final Resul t [facility] [address] [place] [phone] * BI Mammogram Screening Tomosynthesis Bilateral (04/12/2024 1:48 PM EST) Anatomical Region Laterality Modality Breast Bilateral Mammography 04/12/2024 1:48 PM EST Narrative 04/17/2024 12:38 PM EST [address] [place] [address] Mammography Report Signed Patient: Nuvia Fay MR #: [id number] : 1960 Acct:[id number] Age/Sex: 63 / F ADM Date: 04/12/24 Loc: HO.MAMMO Attending Dr: Monica Lozano CNM Ordering Physician: Monica Lozano CNM Results: 2Beni gn Findings Date of Service: 04/12/24 Follow Up: 1 Year From [facility] ina Mammogram Procedure(s): MM tomosynthesis screening BI Accession Number(s): [id number] cc: Monica Lozaon CNM; ANTHONY RUIZ NP EXAMINATION: MM SCREENING [...] 04/17/24 1235 DD/ 1348 TD/TT: 04/12/24 1405 Construction Supervisor: Procedure Note Donotuseinterpreter, Image - [facility]/17/20[facility] [address] [place] [address] Mammography Report Signed Patient: Nuvia Fay EMR #: [id number] : 1Acct:[id number] Age/Sex: 63 / FADM Date: 04/12/24 Loc: HO.MAMMO Attending Dr: Monica Lozano CNM Ordering Physician: Monica LozanoMResults: 2Beni gn Findings Date of Service: 04/12/24Follow Up: 1 Year From [facility] Mammogram Procedure(s): MM tomosynthesis screening BI Accession Number(s): [id number] cc: Monica Lozano CNM; ANTHONY RUIZ NP [...] 04/17/24 1235 DD/ 1348 TD/TT: 04/12/24 1405 Construction Supervisor: [facility] External Provider IMG BI PROCEDURES Edited Result - Final * Albumin, Random Urine W/Creatinine (01/02/2024 8:44 AM EST) Creatinine, Urine 47.20 mg/dL [facility] Microalbumin Urine 7.0 mg/L [facility] Microalbum Creatinine Ratio Ur 14.8 <30 ug/mg cr [facility] Comment:Albumin/Creatinine R atio Reference Ranges: Normal: < 30 ug/mg creatinine Microalbuminuria: 30 - 300 ug/mg creatinineClinical Albuminuria: > 300 ug/mg creatinine Urine (Urine, Random) 01/02/2024 8:44 AM EST 01/02/2024 11:09 AM EST Anthony Ruiz [facility] URINE ORDERABLES Final Resul t [facility] [address] [place] [phone] * (ABNORMAL) Hm Colonoscopy (12/27/2021) Colonoscopy Abnormal(A ) Normal Historical Provider HEALTH MAINTENANCE Final Result * HPV E6/E7 RFLX ALFRED 16 18/45 (05/09/2020 11:19 AM EDT) HPV mRNA E6/E7 rflx Not Detected Not Detected [facility] Comment: Methodology: Blood Bank Calendar Control Clerk-Mediated Amplification This assay detects E6/E7 viral messenger RNA (mRNA) from 14 high-risk HPV types (16,18,31,33,35,39,45,51,52,56,58,59,66,68). The analytical performance characteristics of this assay have been determined by [employer]. The modifications have not been cleared or approved by the FDA. This assay has been validated pursuant to the CLIA regulations and is used for clinical purposes. For additional information, please refer to http://education.Joost/faq/AQP461q7 (This link if provided for information/ educational purposes only.) THIS TEST WAS PERFORMED AT: [facility] [employer] [address] [place] [address],[place] [address] HERNAN WARREN MD 05/09/2020 11:1 9 AM EDT us Yohana Lu HISTORICAL/NON ORDERABLE LABS Fi nal Result [facility] [address] from Last 3 Months or Most Recently Relevant to Health Maintenance Insurance [facility] ONE CARE < 65 [place]MUNDO BARRERA [id number] [facility] Care Teams Batch Still Operator Relationship Specialty Start Date End Date Anthony Ruiz ANP [address] [place] [address] PCP - General Family Medicine 09/23/19 Yuri Pierre, MikeD [address] [place], [place] Pharmacist Internal Medicine 05/05/24 Basilio Hall MD [address] [place] [address] Cardiology 05/17/24 Ron rPeciado MD [address] [place] [address] Pulmonary Disease 05/17/24
--- OUTSIDE RECORDS SUMMARY | 2024-12-15 11:46 | XMS_ITS | Encounter Summary ---
Author Organization [employer] Address [address] [facility] 7t [place] [address] Care Team Providers Care Postdoctoral Fellow Name Role Phone Sariah Vickers Primary Care Provider [phone] Yuri Pierre PharmD Unavailable [phone] Basilio Hall MD Unavailable [phone] Ron Preciado MD Unavailable [phone] Reason for Visit * Reason Onset Date Comments Med Refill Durable Medical Equipment 07/15/2023 Foam M attress/Raised Toilet Seat Encounter Details Date Type Department Care Team (Late st Contact Info) Description 07/15/[address] [facility] MEDICINE [address] [place], [place] [phone] Sariah Vickers ANP [address] [place] [address] Neck pain Social History Tobacco Use Types [...] see request sent via email by [facility] Transit Driver Arlin Baker. Please Advise. Good morning, Our [...] ([facility] st Contact Info) Description 01/07/2025 9:30 AM EST Clinical Support [address] [address] Azeb Hall, RN [address] [place] [address] 01/11/2025 1:00 PM EST Office Visit [address] [address] Sariah Vickers ANP [address] [place] [address] 02/03/2025 11:00 AM EST Medication Management [address] [address] Yuri Pierre, PharmD [address] [place] [address] documented as of this encounter Goals Goal [...] documented as of this encounter Care Teams Postdoctoral Fellow Relationship Specialty Start Date End Date Sariah Vickers ANP [address] [place] [address] PCP - General Family Medicine 09/23/19 Yuri Pierre, PharmD [address] [place] [address] Pharmacist Internal Medicine 05/05/24 Basilio Hall MD [address] [place] [address] Cardiology 05/17/24 Ron Preciado MD [address] [place] [address] Pulmonary Disease 05/17/24 documented as of this encounter
--- OUTSIDE RECORDS SUMMARY | 2024-12-15 11:46 | XMS_ITS | Encounter Summary ---
Author Organization [employer] Address [address] [facility] 7t [place] [address] Care Team Providers Care [employer] Industrial Arts Teacher Name Role Phone Sariah Vickers KAYLEE Primary Care Provider [phone] Yuri Pierre PharmD Unavailable [phone] Basilio Hall MD Unavailable [phone] Ron Preciado MD Unavailable [phone] Reason for Visit * Reason Comments Med Refill Encounter Details Date Type Department Care Team (Late st Contact Info) Description 03/04/2023 Refill [facility] [address] [place] [address] Brittney Nava MD [address] [place] [address] Social History Tobacco Use Types Packs/Day Years [...] 01/07/2025 9:30 AM EST Clinical Support [address] [address] Azeb Hall, MARTIN [address] [place] [address] 01/11/2025 1:00 PM EST Office Visit [address] [address] Sariah Vickers ANP [address] [place] [address] 02/03/2025 11:00 AM EST Medication Management [address] [address] Yuri Pierre, MikeD [address] [place] [address] documented as of this encounter Goals Goal [...] on filedocumented in this encounter Care Teams [employer] Industrial Arts Teacher Relationship Specialty Start Date End Date Sariah Vickers ANP [address] [place] [address] PCP - General Family Medicine 09/23/19 Yuri Pierre, MikeD [address] [place] [address] Pharmacist Internal Medicine 05/05/24 Basilio Hall MD [address] [place] [address] Cardiology 05/17/24 Ron Preciado MD [address] [place] [address] Pulmonary Disease 05/17/24 documented as of this encounter
--- OUTSIDE RECORDS SUMMARY | 2024-12-15 11:46 | XMS_ITS | Encounter Summary ---
Author Organization [employer] Address [address] [facility] 7t [place] [address] Care Team Providers Care Glass Etcher Name Role Phone Sariah Vickers Primary Care Provider [phone] Yuri Pierre PharmD Unavailable [phone] Basilio Hall MD Unavailable [phone] Ron Preciado MD Unavailable [phone] Reason for Visit * Reason Onset Date Comments Med Refill 12/15/2024 Encounter Details Date Type Department Care Team (Late st Contact Info) Description 12/15/[address] [facility] [address] [place] [address] Sariah Vickers ANP [address] [place] [address] Med Refill Social History Tobacco Use Types [...] encounter Miscellaneous Notes * Telephone Encounter - Coreen Art LPN - 12/15/2024 10:26 AM EDT Received request on traMADol (Ultram) 50 MG tablet documented in this encounter Plan of Treatment Upcoming Encounters Date Type Department Care Team (Late st Contact Info) Description 01/07/2025 9:30 AM EST Clinical Support [address] [address] Azeb Hall RN [address] [place] [address] 01/11/2025 1:00 PM EST Office Visit [address] [address] Sariah Vickers ANP [address] [place] [address] 02/03/2025 11:00 AM EST Medication Management [address] [address] Yuri Pierre, PharmD [address] [place] [address] documented as of this encounter Goals Goal [...] as of this encounter Care Teams Glass Etcher Relationship Specialty Start Date End Date Sariah Vickers ANP [address] [place] [address] PCP - General Family Medicine 09/23/19 Yuri Pierre, PharmD [address] [place] [address] Pharmacist Internal Medicine 05/05/24 Basilio Hall MD [address] [place] [address] Cardiology 05/17/24 Ron Preciado MD [address] [place] [address] Pulmonary Disease 05/17/24 documented as of this encounter
--- OUTSIDE RECORDS SUMMARY | 2024-12-15 11:46 | XMS_ITS | Encounter Summary ---
Author Organization [employer] Address [address] [facility] 7t [place] [address] Care Team Providers Care Validation Engineer Name Role Phone Sariah Vickers Primary Care Provider [phone] Yuri Pierre PharmD Unavailable [phone] Basilio Hall MD Unavailable [phone] Ron Preciado MD Unavailable [phone] Reason for Visit * Reason Comments Med Refill Encounter Details Date Type Department Care Team (Late st Contact Info) Description 03/07/2023 Refill [facility] MEDICINE [address] [place] [address] Sariah Vickers ANP [address] [place] [address] Vertigo Social History Tobacco Use Types Packs/Day [...] 01/07/2025 9:30 AM EST Clinical Support [address] [address] Azeb Hall RN [address] [place] [address] 01/11/2025 1:00 PM EST Office Visit [address] [address] Sariah Vickers ANP [address] [place] [address] 02/03/2025 11:00 AM EST Medication Management [address] [address] Yuri Pierre, MikeD [address] [place] [address] documented as of this encounter Goals Goal [...] giddiness documented in this encounter Care Teams Validation Engineer Relationship Specialty Start Date End Date Sariah Vickers ANP [address] [place] [address] PCP - General Family Medicine 09/23/19 Yuri Pierre, MikeD [address] [place] [address] Pharmacist Internal Medicine 05/05/24 Basilio Hall MD [address] [place] [phone] Cardiology 05/17/24 Ron Preciado MD [address] [place] [address] Pulmonary Disease 05/17/24 documented as of this encounter
--- OUTSIDE RECORDS SUMMARY | 2024-12-15 11:46 | XMS_ITS | Encounter Summary ---
Author Organization [employer] Address [address] [facility] 7t [place] [address] Care Team Providers Care Tester Compressed Gases Name Role Phone Sariah Vickers Primary Care Provider [phone] Yuri Pierre PharmD Unavailable [phone] Basilio Hall MD Unavailable [phone] Ron Preciado MD Unavailable [phone] Reason for Visit * Reason Onset Date Comments Med Refill 03/04/2023 Encounter Details Date Type Department Care Team (Late st Contact Info) Description 03/04/2023 Telephone [facility] [address] [place], [place] [phone] Sariah Vickers ANP [address] [place], [place] [phone] Med Refill Social History Tobacco Use Types [...] 50 MG tablet To be sent to: [facility] [place], [place] - [address] [place] [address] documented in this encounter Plan of Treatment Upcoming Encounters Date Type Department Care Team (Late st Contact Info) Description 01/07/2025 9:30 AM EST Clinical Support [address] [address] Azeb Hall RN [address] [place] [address] 01/11/2025 1:00 PM EST Office Visit [address] [address] Sariah Vickers, KAYLEE [address] [place] [address] 02/03/2025 11:00 AM EST Medication Management [address] [address] Yuri Pierre, PharmD [address] [place] [address] documented as of this encounter Goals Goal Patient Goal Type Associated Problems Recent Progress Patient-Stated? Author Blood Pressure < 140/90 Blood Pressure 133/91(2024 9:51 AM EDT) No PhanisAida Cheng, PharmD Record Your Blood Sugar As Directed General No Phanis-Gambl Veronica urbinasa, PharmD Hemoglobin A1c < 7 Result Component 6.6( 1:54 PM EDT) No PhanisAida Chneg, PharmD documented as of this encounter Visit Diagnoses Not on filedocumented in this encounter Care Teams Tester Compressed Gases Relationship Specialty Start Date End Date Sariah Vickers ANP [address] [place] [address] PCP - General Family Medicine 09/23/19 Yuri Pierre PharmD [address] [place] [address] Pharmacist Internal Medicine 05/05/24 Basilio Hall MD [address] [place] [address] Cardiology 05/17/24 Ron Preciado MD [address] [place] [address] Pulmonary Disease 05/17/24 documented as of this encounter
--- OUTSIDE RECORDS SUMMARY | 2024-12-15 11:46 | XMS_ITS | Encounter Summary ---
Author Organization [employer] Address 75 [facility] 7t [place] [address] Care Team Providers Care Guide Tour Name Role Phone Sariah Vickers Primary Care Provider [phone] Yuri Pierre PharmD Unavailable [phone] Basilio Hall MD Unavailable [phone] Ron Preciado MD Unavailable [phone] Reason for Visit * Reason Comments Med Refill Encounter Details Date Type Department Care Team (Late st Contact Info) Description 07/12/2022 Refill [facility] MED[facility] 230 [place] [address] Sariah Vickers ANP 230 [place] [address] Social History Tobacco Use Types Packs/Day Years [...] 01/07/2025 9:30 AM EST Clinical Support [address] [address] Azeb Hall, RN 505 [place] [address] 01/11/2025 1:00 PM EST Office Visit [address] [address] Sariah Vickers ANP [address] [place] [address] 02/03/2025 11:00 AM EST Medication Management [address] [address] Yuri Pierre, PharmD [address] [place] [address] documented as of this encounter Visit Diagnoses Not on filedocumented in this encounter Care Teams Guide Tour Relationship Specialty Start Date End Date Sariah Vickers ANP [address] [place] [address] PCP - General Family Medicine 09/23/19 Yuri Pierre, PharmD [address] [place] [address] Pharmacist Internal Medicine 05/05/24 Basilio Hall MD 596 [place] [address] Cardiology 05/17/24 Ron Preciado MD [address] [place] [address] Pulmonary Disease 05/17/24 documented as of this encounter
--- OUTSIDE RECORDS SUMMARY | 2024-12-15 11:46 | XMS_ITS | Encounter Summary ---
Author Organization [facility] [employer] Address 75 [facility] 7t [place] [address] Care Team Providers Care Industrial Cook Name Role Phone Sariah Vickers Primary Care Provider [phone] Yuri Pierre PharmD Unavailable [phone] Basilio Hall MD Unavailable [phone] Ron Preciado MD Unavailable [phone] Reason for Visit * Reason Comments Med Refill Encounter Details Date Type Department Care Team (Late st Contact Info) Description 05/21/2023 Refill [facility] MED[facility]INE 230 [place] [address] Sariah Vickers ANP 230 [place] [address] Neck pain Social History Tobacco Use Types [...] 01/07/2025 9:30 AM EST Clinical Support [address] [address] Azeb Hall, RN 505 [place] [address] 01/11/2025 1:00 PM EST Office Visit [address] [address] Sariah Vickers, KAYLEE [address] [place] [address] 02/03/2025 11:00 AM EST Medication Management [address] [address] Yuri Pierre, PharmD [address] [place] [address] documented as of this encounter Goals Goal [...] Cervicalgia documented in this encounter Care Teams Industrial Cook Relationship Specialty Start Date End Date Sariah Vickers ANP 230 [place] [address] PCP - General Family Medicine 09/23/19 Yuri iPerre, MikeD 230 [place] [address] Pharmacist Internal Medicine 05/05/24 Basilio Hall MD 596 [place] [address] Cardiology 05/17/24 Ron Preciado MD [address] [place] [address] Pulmonary Disease 05/17/24 documented as of this encounter
--- OUTSIDE RECORDS SUMMARY | 2024-12-15 11:46 | XMS_ITS | Encounter Summary ---
Author Organization [employer] Address 75 [facility] 7t [place] [address] Care Team Providers Care Web Development Manager Name Role Phone Sariah Vickers Primary Care Provider Yuri Pierre PharmD Unavailable [phone] Basilio Hall MD Unavailable [phone] Ron Preciado MD Unavailable [phone] Reason for Visit * Reason Comments Med Refill Encounter Details Date Type Department Care Team (Late st Contact Info) Description 07/17/2022 Refill [facility] MED[facility]INE 230 [place] [address] Sariah Vickers ANP 230 [place] [address] Neck pain Social History Tobacco Use Types [...] AM EST Clinical Support [address] [address] Azeb Hall, RN 505 [place] [address] 01/11/2025 1:00 PM EST Office Visit [address] [address] Sariah Vickers ANP [address] [place] [address] 02/03/2025 11:00 AM EST Medication Management [address] [address] Yuri Pierre, Dileep [address] [place] [address] documented as of this encounter Visit Diagnoses Diagnosis Neck pain Cervicalgia documented in this encounter Care Teams Web Development Manager Relationship Specialty Start Date End Date Sariah Vickers ANP [address] [place] [address] PCP - General Family Medicine 09/23/19 Yuri Pierre, PharmD [address] [place] [address] Pharmacist Internal Medicine 05/05/24 Basilio Hall MD 596 [place] [address] Cardiology 05/17/24 Ron Preciado MD [address] [place] [address] Pulmonary Disease 05/17/24 documented as of this encounter
--- OUTSIDE RECORDS SUMMARY | 2024-12-15 11:46 | XMS_ITS | Encounter Summary ---
Author Organization [employer] Address 75 [facility] 7t [place] [address] Care Team Providers Care Horticultural Manager Name Role Phone Sariah Vickers Primary Care Provider [phone] Yuri Pierre PharmD Unavailable [phone] Basilio Hall MD Unavailable [phone] Ron Preciado MD Unavailable [phone] Reason for Visit * Reason Comments Med Refill Encounter Details Date Type Department Care Team (Late st Contact Info) Description 07/10/2023 Refill [facility] 230 [place] [address] Sariah Vickers ANP 230 [place], [place] [phone] Chronic SI joint pain Social History Tobacco [...] 01/07/2025 9:30 AM EST Clinical Support [address] [address] Azeb Hall, MARTIN 505 [place] [address] 01/11/2025 1:00 PM EST Office Visit [address] [address] Sariah Vickers ANP [address] [place] [address] 02/03/2025 11:00 AM EST Medication Management [address] [address] Yuri Pierre, MikeD [address] [place] [address] documented as of this encounter Goals Goal [...] documented as of this encounter Care Teams Horticultural Manager Relationship Specialty Start Date End Date Sariah Vickers ANP 230 [place] [address] PCP - General Family Medicine 09/23/19 Yuri Pierre, MikeD [address] [place] [address] Pharmacist Internal Medicine 05/05/24 Basilio Hall MD [address] [place] [address] Cardiology 05/17/24 Ron Preciado MD [address] [place] [address] Pulmonary Disease 05/17/24 documented as of this encounter
--- OUTSIDE RECORDS SUMMARY | 2024-12-15 11:46 | XMS_ITS | Encounter Summary ---
Author Organization [employer] Address 75 [facility] 7t [place] [address] Care Team Providers Care Yardage Tufting 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 Name Role Phone Sariah Vickers Primary Care Provider [phone] Yuri Pierre PharmD Unavailable [phone] Basilio Hall MD Unavailable [phone] Ron Preciado MD Unavailable [phone] Reason for Visit * Reason Comments Med Refill Encounter Details Date Type Department Care Team (Late st Contact Info) Description 05/09/2023 Refill [facility] 230 [place] [address] Sariah Vickers ANP 230 [place] [address] High cholesterol Social History Tobacco Use Types [...] 01/07/2025 9:30 AM EST Clinical Support [address] [address] Azeb Hall RN 505 [place] [address] 01/11/2025 1:00 PM EST Office Visit [address] [address] Sariah Vickers ANP [address] [place] [address] 02/03/2025 11:00 AM EST Medication Management [address] [address] Yuri Pierre, MikeD [address] [place] [address] documented as of this encounter Goals Goal [...] hypercholesterolemia documented in this encounter Care Teams Yardage Tufting 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 Relationship Specialty Start Date End Date Sariah Vickers ANP 230 [place] [address] PCP - General Family Medicine 09/23/19 Yuri Pierre, MikeD 230 [place] [address] Pharmacist Internal Medicine 05/05/24 Basilio Hall MD 596 [place], [place] [address] Cardiology 05/17/24 Ron Preciado MD [address] [place] [address] Pulmonary Disease 05/17/24 documented as of this encounter
--- OUTSIDE RECORDS SUMMARY | 2024-12-15 11:46 | XMS_ITS | Encounter Summary ---
Author Organization [employer] Address 75 [facility] 7t [place] [address] Care Team Providers Care Regional Transportation Manager Name Role Phone Sariah Vickers Primary Care Provider [phone] Yuri Pierre PharmD Unavailable [phone] Basilio Hall MD Unavailable [phone] Ron Preciado MD Unavailable [phone] Reason for Visit * Reason Onset Date Comments Referral 05/17/2022 Encounter Details Date Type Department Care Team (Late st Contact Info) Description 05/17/2022 Telephone [facility] MEDICINE 230 [place] [address] Sariah Vickers ANP 230 [place], [place] [phone] Referral Social History Tobacco Use Types Packs/Day [...] guide to vertigo. Please contact pt at [phone] documented in this encounter Plan of Treatment Upcoming Encounters Date Type Department Care Team (Late st Contact Info) Description 01/07/2025 9:30 AM EST Clinical Support [address] [address] Azeb Hall RN 505 [place] [address] 01/11/2025 1:00 PM EST Office Visit [address] [address] Sariah Vickers ANP [address] [place] [address] 02/03/2025 11:00 AM EST Medication Management [address] [address] Yuri Pierre, PharmD [address] [place] [address] documented as of this encounter Visit Diagnoses Not on filedocumented in this encounter Care Teams Regional Transportation Manager Relationship Specialty Start Date End Date Sariah Vickers ANP [address] [place] [address] PCP - General Family Medicine 09/23/19 Yuri Pierre, PharmD [address] [place] [address] Pharmacist Internal Medicine 05/05/24 Basilio Hall MD 596 [place] [address] Cardiology 05/17/24 Ron Preciado MD [address] [place] [address] Pulmonary Disease 05/17/24 documented as of this encounter
--- OUTSIDE RECORDS SUMMARY | 2024-12-15 11:46 | XMS_ITS | Encounter Summary ---
Author Organization [employer] Address 75 [facility] 7t [place] [address] Care Team Providers Care Bottle Sorter Name Role Phone Sariah Vickers Primary Care Provider [phone] Yuri Pierre PharmD Unavailable [phone] Basilio Hall MD Unavailable [phone] Ron Preciado MD Unavailable [phone] Encounter Details Date Type Department Care Team (Late st Contact Info) Description 10/26/2024 Results Follow-Up [facility] MEDICINE 230 [place] [address] Sariah Vickers ANP 230 [place] [address] Thyroid Peroxidase Antibodies, Cardiolipin Antibodies (IgA,IgG,IgM) Social [...] 01/07/2025 9:30 AM EST Clinical Support [address] [address] Azeb Hall RN 505 [place] [address] 01/11/2025 1:00 PM EST Office Visit [address] [address] Sariah Vickers ANP [address] [place] [address] 02/03/2025 11:00 AM EST Medication Management [address] [address] Yuri Pierre PharmD 230 [place] [address] documented as of this encounter Goals Goal [...] as of this encounter Care Teams Bottle Sorter Relationship Specialty Start Date End Date Sariah Vickers ANP 230 [place] [address] PCP - General Family Medicine 09/23/19 Yuri Pierre, PharmD 230 [place] [address] Pharmacist Internal Medicine 05/05/24 Basilio Hall MD 596 [place] [address] Cardiology 05/17/24 Ron Preciado MD [address] [place] [address] Pulmonary Disease 05/17/24 documented as of this encounter
--- OUTSIDE RECORDS SUMMARY | 2024-12-15 11:46 | XMS_ITS | Encounter Summary ---
Author Organization [employer] Address 75 [facility] 7t [place] [address] Care Team Providers Care Weather Observer Name Role Phone Sariah Vickers Primary Care Provider [phone] Yuri Pierre PharmD Unavailable [phone] Basilio Hall MD Unavailable [phone] Ron Preciado MD Unavailable [phone] Reason for Visit * Reason Comments Med Refill Encounter Details Date Type Department Care Team (Late st Contact Info) Description 05/23/2024 Refill [facility] & PEDS [address] [place] [address] Sariah Vickers ANP 230 [place] [address] Cervicalgia Social History Tobacco Use Types Packs/Day [...] 01/07/2025 9:30 AM EST Clinical Support [address] [address] Azeb Hall RN 505 [place] [address] 01/11/2025 1:00 PM EST Office Visit [address] [address] Sariah Vickers ANP [address] [place] [address] 02/03/2025 11:00 AM EST Medication Management [address] [address] Yuri Pierre, MikeD [address] [place] [address] documented as of this encounter Goals Goal [...] documented as of this encounter Care Teams Weather Observer Relationship Specialty Start Date End Date Sariah Vickers ANP 230 [place] [address] PCP - General Family Medicine 09/23/19 Yuri Pierre, MikeD [address] [place] [address] Pharmacist Internal Medicine 05/05/24 Basilio Hall MD [address] [place] [address] Cardiology 05/17/24 Ron Preciado MD [address] [place] [address] Pulmonary Disease 05/17/24 documented as of this encounter
--- OUTSIDE RECORDS SUMMARY | 2024-12-15 11:46 | XMS_ITS | Encounter Summary ---
Author Organization [employer] Address 75 [facility] 7t [place] [address] Care Team Providers Care Skip Hoist Engineer Name Role Phone Sariah Vickers KAYLEE Primary Care Provider [phone] Yuri Pierre PharmD Unavailable [phone] Basilio Hall MD Unavailable [phone] Ron Preciado MD Unavailable [phone] Reason for Visit * Reason Comments Med Refill Encounter Details Date Type Department Care Team (Late st Contact Info) Description 11/11/2024 Refill [facility] 230 [place] [address] Yogesh Gomez, JOHN 230 [place] [address] Social History Tobacco Use Types Packs/Day Years [...] 01/07/2025 9:30 AM EST Clinical Support [address] [address] Azeb Hall, MARTIN 505 [place] [address] 01/11/2025 1:00 PM EST Office Visit [address] [address] Sariah Vickers ANP [address] [place] [address] 02/03/2025 11:00 AM EST Medication Management [address] [address] Yuri Pierre, PharmD 230 [place] [address] documented as of this encounter Goals Goal [...] documented as of this encounter Care Teams Skip Hoist Engineer Relationship Specialty Start Date End Date Sariah Vickers ANP 230 [place] [address] PCP - General Family Medicine 09/23/19 Yuri Pierre PharmD 230 [place] [address] Pharmacist Internal Medicine 05/05/24 Basilio Hall MD 596 [place] [address] Cardiology 05/17/24 Ron Preciado MD [address] [place] [address] Pulmonary Disease 05/17/24 documented as of this encounter
--- OUTSIDE RECORDS SUMMARY | 2024-12-15 11:46 | XMS_ITS | Encounter Summary ---
Author Organization [employer] Address 75 [facility] 7t [place] [address] Care Team Providers Care Sleeper Cutter Name Role Phone Sariah Vickers Primary Care Provider [phone] Yuri Pierre PharmD Unavailable [phone] Basilio Hall MD Unavailable [phone] Ron Preciado MD Unavailable [phone] Reason for Visit * Reason Comments Med Refill Encounter Details Date Type Department Care Team (Late st Contact Info) Description 06/30/2023 Refill [facility] MEDICINE 230 [place] [address] Sariah Vickers ANP 230 [place] [address] Neck pain Social History Tobacco Use Types [...] 01/07/2025 9:30 AM EST Clinical Support [address] [address] Azeb Hall, MARTIN 505 [place] [address] 01/11/2025 1:00 PM EST Office Visit [address] [address] Sariah Vickers ANP [address] [place] [address] 02/03/2025 11:00 AM EST Medication Management [address] [address] Yuri Pierre, MikeD [address] [place] [address] documented as of this encounter Goals Goal [...] documented as of this encounter Care Teams Sleeper Cutter Relationship Specialty Start Date End Date Sariah Vickers ANP 230 [place] [address] PCP - General Family Medicine 09/23/19 Yuri Pierre, MikeD [address] [place] [address] Pharmacist Internal Medicine 05/05/24 Basilio Hall MD 596 [place] [address] Cardiology 05/17/24 Ron Preciado MD [address] [place] [address] Pulmonary Disease 05/17/24 documented as of this encounter
--- OUTSIDE RECORDS SUMMARY | 2024-12-15 11:46 | XMS_ITS | Encounter Summary ---
Author Organization [employer] Address 75 [facility] 7t [place] [address] Care Team Providers Care Cement Rubber Name Role Phone Sariah Vickers Primary Care Provider [phone] Yuri Pierre PharmD Unavailable [phone] Basilio Hall MD Unavailable [phone] Ron Preciado MD Unavailable [phone] Reason for Visit * Reason Comments Med Refill Encounter Details Date Type Department Care Team (Late st Contact Info) Description 07/10/[address] [facility] MEDICINE 230 [place] [address] Sariah Vickers ANP 230 [place] [address] Vertigo Social History Tobacco Use Types Packs/Day [...] Description 01/07/2025 9:30 AM EST Clinical Support [address] [address] Azeb Hall, RN 505 [place] [address] 01/11/2025 1:00 PM EST Office Visit [address] [address] Sariah Vickers ANP [address] [place] [address] 02/03/2025 11:00 AM EST Medication Management [address] [address] Yuri Pierre, PharmD [address] [place] [address] documented as of this encounter Visit Diagnoses Diagnosis Vertigo Dizziness and giddiness documented in this encounter Care Teams Cement Rubber Relationship Specialty Start Date End Date Sariah Vickers ANP [address] [place] [address] PCP - General Family Medicine 09/23/19 Yuri Pierre, PharmD [address] [place] [address] Pharmacist Internal Medicine 05/05/24 Basilio Hall MD 596 [place] [address] Cardiology 05/17/24 Ron Preciado MD [address] [place] [address] Pulmonary Disease 05/17/24 documented as of this encounter
--- OUTSIDE RECORDS SUMMARY | 2024-12-15 11:46 | XMS_ITS | Encounter Summary ---
Author Organization [employer] Address 75 [facility] 7t [place] [address] Care Team Providers Care Meter Reading Clerk Name Role Phone Sariah Vickers Primary Care Provider [phone] Yuri Pierre PharmD Unavailable [phone] Basilio Hall MD Unavailable [phone] Ron Preciado MD Unavailable [phone] Reason for Visit * Reason Comments Med Refill Encounter Details Date Type Department Care Team (Late st Contact Info) Description 08/14/2022 Refill [facility] MED [facility] PEDS [address] [place] [address] Sariah Vickers ANP 230 [place] [address] Severe persistent asthma without complication Social History [...] 01/07/2025 9:30 AM EST Clinical Support [address] [address] Azeb Hall, RN 505 [place] [address] 01/11/2025 1:00 PM EST Office Visit [address] [address] Sariah Vickers ANP [address] [place] [address] 02/03/2025 11:00 AM EST Medication Management [address] [address] Yuri Pierre, PharmD [address] [place] [address] documented as of this encounter Visit Diagnoses Diagnosis Severe persistent asthma without complication (HCC) documented in this encounter Care Teams Meter Reading Clerk Relationship Specialty Start Date End Date Sariah Vickers ANP [address] [place] [address] PCP - General Family Medicine 09/23/19 Yuri Pierre, PharmD [address] [place] [address] Pharmacist Internal Medicine 05/05/24 Basilio Hall MD 596 [place] [address] Cardiology 05/17/24 Ron Preciado MD [address] [place] [address] Pulmonary Disease 05/17/24 documented as of this encounter
--- OUTSIDE RECORDS SUMMARY | 2024-12-15 11:46 | XMS_ITS | Encounter Summary ---
Author Organization [employer] Address 75 [facility] 7t [place] [address] Care Team Providers Care Ham Rolling 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 Name Role Phone Sariah Vickers Primary Care Provider Yuri Pierre PharmD Unavailable [phone] Basilio Hall MD Unavailable [phone] Ron Preciado MD Unavailable [phone] Reason for Visit * Reason Comments Med Refill Encounter Details Date Type Department Care Team (Late st Contact Info) Description 12/13/2024 Refill [facility] MED [facility] PEDS [address] [place] [address] Sariah Vickers ANP 230 [place] [address] Neck pain; Cervicalgia Social History Tobacco Use Types Packs/Day [...] 01/07/2025 9:30 AM EST Clinical Support [address] [address] Azeb Hall RN 505 [place] [address] 01/11/2025 1:00 PM EST Office Visit [address] [address] Sariah Vickers, KAYLEE [address] [place] [address] 02/03/2025 11:00 AM EST Medication Management [address] [address] Yuri Pierre, MikeD [address] [place] [address] documented as of this encounter Goals Goal [...] encounter Visit Diagnoses Diagnosis Neck pain Cervicalgia Cervicalgia documented in this encounter Additional Health Concerns Assessment Noted Time PHQ-9 Depression Total Score: 11 025 5:30 PM EDT documented as of this encounter Care Teams Ham Rolling 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 Relationship Specialty Start Date End Date Sariah Vickers, KAYLEE 230 [place] [address] PCP - General Family Medicine 09/23/19 Yuri Pierre PharmD 230 [place] [address] Pharmacist Internal Medicine 05/05/24 Basilio Hall MD 596 [place] [address] Cardiology 05/17/24 Ron Preciado MD [address] [place] [address] Pulmonary Disease 05/17/24 documented as of this encounter
--- OUTSIDE RECORDS SUMMARY | 2024-12-15 11:46 | XMS_ITS | Encounter Summary ---
Author Organization [employer] Address 75 [facility] 7t [place] [address] Care Team Providers Care Melter Supervisor Oxygen Furnace Name Role Phone Sariah Vickers Primary Care Provider [phone] Yuri Pierre PharmD Unavailable [phone] Basilio Hall MD Unavailable [phone] Ron Preciado MD Unavailable [phone] Reason for Visit * Reason Comments Med Refill Encounter Details Date Type Department Care Team (Late st Contact Info) Description 11/12/2024 Refill [facility] MEDICINE 230 [place] [address] Sariah Vickers ANP 230 [place] [address] Neck pain Social History Tobacco Use Types [...] Description 01/07/2025 9:30 AM EST Clinical Support [address] [address] Azeb Hall RN 505 [place] [address] 01/11/2025 1:00 PM EST Office Visit [address] [address] Sariah Vickers, ANP [address] [place] [address] 02/03/2025 11:00 AM EST Medication Management [address] [address] Yuri Pierre, PharmD [address] [place] [address] documented as of this encounter Goals Goal [...] documented as of this encounter Care Teams Melter Supervisor Oxygen Furnace Relationship Specialty Start Date End Date Sariah Vickers ANP 230 [place] [address] PCP - General Family Medicine 09/23/19 Yuri Pierre, MikeD 230 [place] [address] Pharmacist Internal Medicine 05/05/24 Basilio Hall MD 596 [place] [address] Cardiology 05/17/24 Ron Preciado MD [address] [place] [address] Pulmonary Disease 05/17/24 documented as of this encounter
== END 2024-12-15 09:48 | disposition home or self-care (01) ==
LOC: HO.US 09:47
PROVIDERS: PCP Nurse Practitioner Primary Care; Visit Provider Nurse Practitioner
DX: K75.81 Nonalcoholic steatohepatitis (NASH) (principal)
CPT/HCPCS: 76700

== ENCOUNTER → 2024-12-15 09:50 | Outpatient (BNV) | payer OTHER, SELFPAY | PROVIDERS: PCP Nurse Practitioner Primary Care; Visit Provider Radiology Diagnostic Radiology | DX: K75.81 Nonalcoholic steatohepatitis (NASH) (principal) | CPT/HCPCS: 76700 ==

== ENCOUNTER 2024-12-18 05:17 | Emergency (ER) | payer OTHER, SELFPAY ==
--- OUTSIDE RECORDS SUMMARY | 2024-12-16 14:20 | XMS_ITS | Encounter Summary ---
Author Organization [employer] Address [address] [facility] 7t [place] [address] Care Team Providers Care Poultry Farmer Name Role Phone Alee Sariah PAGE Primary Care Provider [phone] Yuri Pierre PharmD Unavailable [phone] Basilio Hall MD Unavailable [phone] Ron Preciado MD Unavailable [phone] Reason for Referral * Medications - Closed Specialty Diagnoses / Procedures Referred By Queenie goemz Referred To Contact Diagnoses Type 2 diabetes mellitus with hyperlipidemia (HCC) [place] [address] Phone: tel: fax: Referral ID Status Reason Start Date Expiration Date Visits Re quested Visits Authorized [id number] Closed 1 1 * Medications - Closed Specialty Diagnoses / Procedures Referred By Queenie gomez Referred To Contact Diagnoses Type 2 diabetes mellitus with hyperlipidemia (HCC) Samantha Kumar DO [address] [place] [address] Phone: tel: fax: Referral ID Status Reason Start Date Expiration Date Visits Re quested Visits Authorized [id number] Closed 1 1 Reason for Visit * Reason Comments Dizziness Encounter Details Date Type Department Care Team (Latest Contact Info) Description 12/16/2024 2:20 PM EDT Office Visit [facility] [address] [place] [address] Type 2 diabetes mellitus with hyperlipidemia (CMS/HCC) [...] Sign Reading Time Taken Comments Blood Pressure 125/85 12/16/2024 12:36 PM EDT Pulse 96 12/16/2024 12:36 PM EDT Temperature 36.6 C (97.8 F) 12/16/2024 12:36 PM EDT Respiratory Rate 16 12/16/2024 12:36 PM EDT Oxygen Saturation 94% 12/16/2024 12:36 PM EDT room air Inhaled Oxygen Concentration - - Weight 94.8 kg (209 lb) 12/16/2024 12:36 PM EDT Height 160 cm (5' 3 ) 12/16/2024 12:36 PM EDT Body Mass Index 37.02 12/16/2024 12:36 PM EDT documented in this encounter Plan of Treatment Upcoming Encounters Date Type Department Care Team (Late st Contact Info) Description 01/07/2025 9:30 AM EST Clinical Support [address] [address] Azeb Hall, MARTIN [address] [place] [address] 01/11/2025 1:00 PM EST Office Visit [address] [address] Sariah Vickers, ANP [address] [place] [address] 02/03/2025 11:00 AM EST Medication Management [address] [address] Yuri Pierre, PharmD [address] [place] [address] documented as of this encounter Goals Goal Patient Goal Type Associated Problems Recent Progress Patient-Stated? Author Blood Pressure < 140/90 Blood Pressure 125/85(2024 12:36 PM EDT) No Aida Ragland, PharmD Record Your Blood Sugar As Directed General No Aida Ragland, PharmD Hemoglobin A1c < 7 Result Component 6.6( 1:54 PM EDT) No Aida Ragland, PharmD documented as of this encounter Procedures Procedure Name Priority Date/Time Associated Diagnosis Comments POCT GLUCOSE Routine 12/16/2024 2:44 PM EDT Type 2 diabetes mellitus with hyperlipidemia (CMS/HCC) POCT GLUCOSE Routine 12/16/2024 1:06 PM EDT Type 2 diabetes mellitus with hyperlipidemia (CMS/HCC) documented in this encounter Results * POCT Glucose (12/16/2024 2:44 PM EDT) Glucose Blood, POC 78 60 - 200 mg/dL QC Media Lot # [id number] Lot# Expiration Date Blood Capillary blood specimen / Unknown 12/16/2024 2:44 PM EDT Samantha Kumar DO POINT OF CARE TEST ENTER/CHRISTINA T ORDERABLES Final Result * POCT Glucose (12/16/2024 1:06 PM EDT) Glucose Blood, POC 102 60 - 200 mg/dL Blood Capillary blood specimen / Unknown 12/16/2024 1:06 PM EDT Brittney Nava MD POINT OF CARE TEST ENTER/E DIT ORDERABLES Final Result documented in this encounter Visit Diagnoses Diagnosis Type 2 diabetes mellitus with hyperlipidemia (CMS/HCC)- Primary documented in this encounter Additional Health Concerns Assessment Noted Time PHQ-9 Depression Total Score: 11 025 5:30 PM EDT documented as of this encounter Care Teams Poultry Farmer Relationship Specialty Start Date End Date Sariah Vickers ANP [address] [place] [address] PCP - General Family Medicine 09/23/19 Yuri Pierre PharmD [address] [place] [address] Pharmacist Internal Medicine 05/05/24 Basilio Hall MD [address] [place] [address] Cardiology 05/17/24 Ron Preciado MD [address] [place] [address] Pulmonary Disease 05/17/24 documented as of this encounter
--- NOTE | 2024-12-18 | ECG_ITS ---
Test Reason : CP Blood Pressure : */* mmHG Vent. Rate : 71 BPM Atrial Rate : 71 BPM P-R Int : 242 ms QRS Dur : 100 ms QT Int : 434 ms P-R-T Axes : 51 -44 44 degrees QTcB Int : 471 ms Sinus rhythm with 1st degree A-V block Left axis deviation Abnormal ECG When compared with ECG of 08-Dec-2024 14:02, No significant change was found Referred By: Generic ED Physician Electronically Signed By: LIVE YANEZ
--- NOTE | ~2024-12-18 | XR_ITS ---
CLINICAL HISTORY: cough 1 view chest x-ray Comparison: CR/SR - XR CHEST 2 VIEWS - 12/08/24 14:21 EDT Findings: No consolidation or effusion. Linear atelectasis left lung base. Normal size heart. No acute fracture. IMPRESSION: 1. No dense consolidation to suggest pneumonia. Linear atelectasis left base. This document has been electronically signed by: Whitney Price MD on 12/18/2024 07:39:34
--- NOTE | ~2024-12-18 | CT_ITS ---
CLINICAL HISTORY: abd pain CT abdomen and pelvis with contrast Comparison: Ultrasound abdomen from 12/15/2024 Findings: The lung bases are clear. Gallbladder is within normal limits. Punctate subcentimeter hepatic hypodensities are scattered throughout the liver and too small to characterize though likely reflect hepatic cysts. No biliary dilation. Spleen, pancreas, bilateral adrenal glands are within normal limits. Bilateral renal cysts redemonstrated. No renal stones. Colonic diverticulosis without findings of diverticulitis. No bowel obstruction, pneumoperitoneum, or pneumatosis. The appendix is normal. Aorta nonaneurysmal. Moderate atherosclerotic disease throughout the aorta and major branch vessels. No ascites. No retroperitoneal lymphadenopathy. Pelvic contents unremarkable. No acute osseous abnormality. No acute soft tissue abnormality. IMPRESSION: No acute intra-abdominal or pelvic abnormality. This document has been electronically signed by: Jasen Bliss MD on 12/18/2024 09:02:09
[2024-12-18 05:26] VITALS: BP 108/62; BP 136/79; PULSE 76; PULSE 88; RESP 18; TEMP 36.4; O2SAT 92; O2SAT 95; BMI 32.6
--- OUTSIDE RECORDS SUMMARY | 2024-12-18 05:41 | XMS_ITS | Encounter Summary ---
Author Organization [employer] Address [address] [facility] 7t [place] [address] Care Team Providers Care Revenue Cycle Analyst Name Role Phone Sariah Vickers Primary Care Provider [phone] Yuri Pierre PharmD Unavailable [phone] Basilio Hall MD Unavailable [phone] Ron Preciado MD Unavailable [phone] Encounter Details Date Type Department Care Team (Latest Contact Info) Description 04/14/2020 Abstract [facility] CONVERSIONS Dental, Provider, DDS Social History [...] 01/07/2025 9:30 AM EST Clinical Support [address] [address] Azeb Hall RN 505 [place] [address] 01/11/2025 1:00 PM EST Office Visit [address] [address] Sariah Vickers ANP [address] [place] [address] 02/03/2025 11:00 AM EST Medication Management [address] [place] [address] Yuri Pierre, PharmD [address] [place] [address] documented as of this encounter Visit Diagnoses Not on filedocumented in this encounter Care Teams Revenue Cycle Analyst Relationship Specialty Start Date End Date Sariah Vickers ANP 230 [place], [place] [phone] PCP - General Family Medicine 09/23/19 Yuri Pierre, PharmD 230 [place], [place] [phone] Pharmacist Internal Medicine 05/05/24 Basilio Hall MD 5[address] [place] [address] Cardiology 05/17/24 Ron Preciado MD [address] [place] [address] Pulmonary Disease 05/17/24 documented as of this encounter
--- OUTSIDE RECORDS SUMMARY | 2024-12-18 05:41 | XMS_ITS | Encounter Summary ---
Author Organization [employer] Address [address] [facility] 7t [place] [address] Care Team Providers Care Department Mgr Name Role Phone Sariah Vickers Primary Care Provider [phone] Yuri Pierre PharmD Unavailable [phone] Basilio Hall MD Unavailable [phone] Ron Preciado MD Unavailable [phone] Encounter Details Date Type Department Care Team (Latest Contact Info) Description 05/15/2018 Abstract [facility] CONVERSIONS Dental, Provider, DDS Social [...] 01/07/2025 9:30 AM EST Clinical Support [address] [address] Azeb Hall RN 505 [place] [address] 01/11/2025 1:00 PM EST Office Visit [address] [address] Sariah Vickers ANP [address] [place] [address] 02/03/2025 11:00 AM EST Medication Management [address] [place] [address] Yuri Pierre, PharmD 230 [place] [address] documented as of this encounter Visit Diagnoses Not on filedocumented in this encounter Care Teams Department Mgr Relationship Specialty Start Date End Date Sariah Vickers ANP 230 [place] [address] PCP - General Family Medicine 09/23/19 Yuri Pierre, PharmD 230 [place], [place] [phone] Pharmacist Internal Medicine 05/05/24 Basilio Hall MD 596 [place] [address] Cardiology 05/17/24 Ron Preciado MD [address] [place] [address] Pulmonary Disease 05/17/24 documented as of this encounter
--- OUTSIDE RECORDS SUMMARY | 2024-12-18 05:41 | XMS_ITS | Encounter Summary ---
Author Organization [employer] Address 75 [facility] 7t [place] [address] Care Team Providers Care Barista Name Role Phone Sariah Vickers Primary Care Provider [phone] Yuri Pierre PharmD Unavailable [phone] Basilio Hall MD Unavailable [phone] Ron Preciado MD Unavailable [phone] Reason for Visit * Reason Comments Med Refill Encounter Details Date Type Department Care Team (Late st Contact Info) Description 09/13/2022 Refill [facility] MED & PEDS [address] [place] [address] Sariah Vickers ANP 230 [place] [address] Severe persistent allergic asthma without complication Social [...] 01/07/2025 9:30 AM EST Clinical Support [address] [address] Azeb Hall, RN 505 [place] [address] 01/11/2025 1:00 PM EST Office Visit [address] [address] Sariah Vickers ANP [address] [place] [address] 02/03/2025 11:00 AM EST Medication Management [address] [address] Yuri Pierre, PharmD [address] [place] [address] documented as of this encounter Visit Diagnoses Diagnosis Severe persistent allergic asthma without complication (HCC) documented in this encounter Care Teams Barista Relationship Specialty Start Date End Date Sariah Vickers ANP [address] [place] [address] PCP - General Family Medicine 09/23/19 Yuri Pierre, PharmD [address] [place] [address] Pharmacist Internal Medicine 05/05/24 Basilio Hall MD 596 [place] [address] Cardiology 05/17/24 Ron Preciado MD [address] [place] [address] Pulmonary Disease 05/17/24 documented as of this encounter
--- OUTSIDE RECORDS SUMMARY | 2024-12-18 05:41 | XMS_ITS | Encounter Summary ---
Author Organization [employer] Address 75 [facility] 7t [place] [address] Care Team Providers Care Mud Analysis Operator Name Role Phone Sariah Vickers Primary Care Provider [phone] Yuri Pierre PharmD Unavailable [phone] Basilio Hall MD Unavailable [phone] Ron Preciado MD Unavailable [phone] Reason for Visit * Reason Comments Med Refill Encounter Details Date Type Department Care Team (Late st Contact Info) Description 08/22/2023 Refill [facility] MEDICINE 230 [place] [address] Sariah Vickers ANP 230 [place] [address] Neck pain Social History Tobacco Use Types [...] 01/07/2025 9:30 AM EST Clinical Support [address] [address] Azeb Hall, MARTIN 505 [place] [address] 01/11/2025 1:00 PM EST Office Visit [address] [address] Sariah Vickers ANP [address] [place] [address] 02/03/2025 11:00 AM EST Medication Management [address] [address] Yuri Pierre, MikeD [address] [place] [address] documented as of this encounter Goals Goal Patient Goal Type Associated Problems Recent Progress Patient-Stated? Author Blood Pressure < 140/90 Blood Pressure 125/85(2024 12:36 PM EDT) No Aida Ragland PharmD Record [...] documented as of this encounter Care Teams Mud Analysis Operator Relationship Specialty Start Date End Date Sariah Vickers ANP 230 [place] [address] PCP - General Family Medicine 09/23/19 Yuri Pierre, MikeD [address] [place] [address] Pharmacist Internal Medicine 05/05/24 Basilio Hall MD 596 [place] [address] Cardiology 05/17/24 Ron Preciado MD [address] [place] [address] Pulmonary Disease 05/17/24 documented as of this encounter
--- OUTSIDE RECORDS SUMMARY | 2024-12-18 05:41 | XMS_ITS | Encounter Summary ---
Author Organization [employer] Address 75 [facility] 7t [place] [address] Care Team Providers Care Truck Trailer Final Inspector Name Role Phone Sariah Vickers Primary Care Provider [phone] Yuri Pierre PharmD Unavailable [phone] Basilio Hall MD Unavailable [phone] Ron Preciado MD Unavailable [phone] Reason for Visit * Reason Comments Med Refill Encounter Details Date Type Department Care Team (Late st Contact Info) Description 03/09/2024 Refill [facility] CHC MED & PEDS [address] [place] [address] Sariah Vickers ANP 230 [place] [address] Neck pain Social History Tobacco Use Types [...] 01/07/2025 9:30 AM EST Clinical Support [address] [address] Azeb Hall RN 505 [place] [address] 01/11/2025 1:00 PM EST Office Visit [address] [address] Sariah Vickers ANP [address] [place] [address] 02/03/2025 11:00 AM EST Medication Management [address] [address] Yuri Pierre, MikeD [address] [place] [address] documented as of this encounter Goals Goal [...] as of this encounter Care Teams Truck Trailer Final Inspector Relationship Specialty Start Date End Date Sariah Vickers ANP 230 [place] [address] PCP - General Family Medicine 09/23/19 Yuri Pierre, MikeD [address] [place] [address] Pharmacist Internal Medicine 05/05/24 Basilio Hall MD [address] [place] [address] Cardiology 05/17/24 Ron Preciado MD [address] [place] [address] Pulmonary Disease 05/17/24 documented as of this encounter
--- OUTSIDE RECORDS SUMMARY | 2024-12-18 05:41 | XMS_ITS | Encounter Summary ---
Author Organization [employer] Address [address] [facility] 7t [place] [address] Care Team Providers Care Mine Car Dispatcher Name Role Phone Sariah Vickers Primary Care Provider [phone] Yuri Pierre PharmD Unavailable [phone] Basilio Hall MD Unavailable [phone] Ron Preciado MD Unavailable [phone] Reason for Visit * Reason Onset Date Comments Durable Medical Equipment 03/15/2022 Encounter Details Date Type Department Care Team (Late st Contact Info) Description 03/15/2022 Telephone [facility] MEDICINE 230 [place] [address] Sariah Vickers ANP 230 [place] [address] Durable Medical Equipment Social History Tobacco Use [...] 01/07/2025 9:30 AM EST Clinical Support [address] [address] Azeb Hall RN 505 [place] [address] 01/11/2025 1:00 PM EST Office Visit [address] [address] Sariah Vickers ANP [address] [place] [address] 02/03/2025 11:00 AM EST Medication Management [address] [address] Yuri Pierre, Dileep [address] [place] [address] documented as of this encounter Visit Diagnoses Not on filedocumented in this encounter Care Teams Mine Car Dispatcher Relationship Specialty Start Date End Date Sariah Vickers ANP [address] [place] [address] PCP - General Family Medicine 09/23/19 Yuri Pierre, PharmD [address] [place] [address] Pharmacist Internal Medicine 05/05/24 Basilio Hall MD 596 [place] [address] Cardiology 05/17/24 Ron Preciado MD [address] [place] [address] Pulmonary Disease 05/17/24 documented as of this encounter
--- OUTSIDE RECORDS SUMMARY | 2024-12-18 05:41 | XMS_ITS | Encounter Summary ---
Author Organization [employer] Address 75 [facility] 7t [place] [address] Care Team Providers Care Hydroponics Worker Name Role Phone Sariah Vickers Primary Care Provider [phone] Yuri Pierre PharmD Unavailable [phone] Basilio Hall MD Unavailable [phone] Ron Preciado MD Unavailable [phone] Reason for Visit * Reason Comments Med Refill Encounter Details Date Type Department Care Team (Late st Contact Info) Description 12/02/2024 Refill [facility] MED & PEDS [address] [place] [address] Sariah Vickers ANP 230 [place] [address] Type 2 diabetes mellitus with diabetic neuropathy, [...] 01/07/2025 9:30 AM EST Clinical Support [address] [address] Azeb Hall, RN 505 [place] [address] 01/11/2025 1:00 PM EST Office Visit [address] [address] Sariah Vickers, KAYLEE [address] [place] [address] 02/03/2025 11:00 AM EST Medication Management [address] [address] Yuri Pierre, PharmD [address] [place] [address] documented as of this encounter Goals Goal Patient Goal Type Associated Problems Recent Progress Patient-Stated? Author Blood Pressure < 140/90 Blood Pressure 125/85(2024 12:36 PM EDT) No Aida Rgaland PharmD Record Your Blood Sugar As Directed [...] documented as of this encounter Care Teams Hydroponics Worker Relationship Specialty Start Date End Date Sariah Vickers ANP [address] [place] [address] PCP - General Family Medicine 09/23/19 Yuri Pierre, Dileep [address] [place] [address] Pharmacist Internal Medicine 05/05/24 Basilio Hall MD [address] [place] [address] Cardiology 05/17/24 Ron Preciado MD [address] [place] [address] Pulmonary Disease 05/17/24 documented as of this encounter
--- OUTSIDE RECORDS SUMMARY | 2024-12-18 05:41 | XMS_ITS | Encounter Summary ---
Author Organization [employer] Address 75 [facility] 7t [place] [address] Care Team Providers Care Grape Pruner Name Role Phone Sariah Vickers Primary Care Provider [phone] Yuri Pierre PharmD Unavailable [phone] Basilio Hall MD Unavailable [phone] Ron Preciado MD Unavailable [phone] Reason for Visit * Reason Comments Med Refill Encounter Details Date Type Department Care Team (Late st Contact Info) Description 03/26/2022 Refill [facility] MEDICINE 230 [place] [address] Sariah Vickers ANP 230 [place] [address] Social History Tobacco Use Types Packs/Day Years [...] 01/07/2025 9:30 AM EST Clinical Support [address] [address] Azeb Hall, RN 505 [place] [address] 01/11/2025 1:00 PM EST Office Visit [address] [address] Sariah Vickers ANP [address] [place] [address] 02/03/2025 11:00 AM EST Medication Management [address] [address] Yuri Pierre, PharmD [address] [place] [address] documented as of this encounter Visit Diagnoses Not on filedocumented in this encounter Care Teams Grape Pruner Relationship Specialty Start Date End Date Sariah Vickers ANP [address] [place] [address] PCP - General Family Medicine 09/23/19 Yuri Pierre, PharmD [address] [place] [address] Pharmacist Internal Medicine 05/05/24 Basilio Hall MD 596 [place] [address] Cardiology 05/17/24 Ron Preciado MD [address] [place] [address] Pulmonary Disease 05/17/24 documented as of this encounter
--- OUTSIDE RECORDS SUMMARY | 2024-12-18 05:41 | XMS_ITS | Encounter Summary ---
Author Organization [employer] Address 75 [facility] 7t [place] [address] Care Team Providers Care High School Social Studies Teacher Name Role Phone Sariah Vickers Primary Care Provider [phone] Yuri Pierre PharmD Unavailable [phone] Basilio Hall MD Unavailable [phone] Ron Preciado MD Unavailable [phone] Reason for Visit * Reason Comments Med Refill Encounter Details Date Type Department Care Team (Late st Contact Info) Description 02/06/2022 Refill [facility] MEDICINE 230 [place] [address] Sariah Vickers ANP 230 [place] [address] Social History Tobacco Use Types Packs/Day Years [...] 01/07/2025 9:30 AM EST Clinical Support [address] [address] Azeb Hall, RN 505 [place] [address] 01/11/2025 1:00 PM EST Office Visit [address] [address] Sariah Vickers ANP [address] [place] [address] 02/03/2025 11:00 AM EST Medication Management [address] [address] Yuri Pierre, PharmD [address] [place] [address] documented as of this encounter Visit Diagnoses Not on filedocumented in this encounter Care Teams High School Social Studies Teacher Relationship Specialty Start Date End Date Sariah Vickers ANP [address] [place] [address] PCP - General Family Medicine 09/23/19 Yuri Pierre, PharmD [address] [place] [address] Pharmacist Internal Medicine 05/05/24 Basilio Hall MD 596 [place] [address] Cardiology 05/17/24 Ron Preciado MD [address] [place] [address] Pulmonary Disease 05/17/24 documented as of this encounter
--- OUTSIDE RECORDS SUMMARY | 2024-12-18 05:41 | XMS_ITS | Encounter Summary ---
Author Organization [employer] Address 75 [facility] 7t [place] [address] Care Team Providers Care City Wellness Coordinator Name Role Phone Sariah Vickers Primary Care Provider [phone] Yuri Pierre PharmD Unavailable [phone] Basilio Hall MD Unavailable [phone] Ron Preciado MD Unavailable [phone] Encounter Details Date Type Department Care Team (Late st Contact Info) Description 11/23/2024 Orders Only [facility] MEDICINE 230 [place] [address] Sariah Vickers ANP [address] [place] [address] Social History Tobacco Use Types Packs/Day Years [...] 01/07/2025 9:30 AM EST Clinical Support [address] [address] Azeb Hall, RN 505 [place] [address] 01/11/2025 1:00 PM EST Office Visit [address] [address] Sariah Vickers ANP [address] [place] [address] 02/03/2025 11:00 AM EST Medication Management [address] [address] Yuri Pierre, MikeD [address] [place] [address] documented as of this encounter Goals Goal [...] as of this encounter Care Teams City Wellness Coordinator Relationship Specialty Start Date End Date Sariah Vickers, KAYLEE 230 [place] [address] PCP - General Family Medicine 09/23/19 Yuri Pierre, MikeD [address] [place] [address] Pharmacist Internal Medicine 05/05/24 Basilio Hall MD [address] [place] [address] Cardiology 05/17/24 Ron Preciado MD [address] [place] [address] Pulmonary Disease 05/17/24 documented as of this encounter
--- OUTSIDE RECORDS SUMMARY | 2024-12-18 05:41 | XMS_ITS | Encounter Summary ---
Author Organization [employer] Address 75 [facility] 7t [place] [address] Care Team Providers Care Glass Science Engineer Name Role Phone Sariah Vickers Primary Care Provider [phone] Yuri Pierre PharmD Unavailable [phone] Basilio Hall MD Unavailable [phone] Ron Preciado MD Unavailable [phone] Encounter Details Date Type Department Care Team (Late st Contact Info) Description 02/05/2022 Abstract [facility] MEDICINE 230 [place] [address] Sariah Vickers ANP 230 [place] [address] Social History Tobacco Use Types Packs/Day Years [...] 01/07/2025 9:30 AM EST Clinical Support [address] [address] Azeb Hall RN 505 [place] [address] 01/11/2025 1:00 PM EST Office Visit [address] [address] Sariah Vickers ANP [address] [place] [address] 02/03/2025 11:00 AM EST Medication Management [address] [address] Yuri Pierre, PharmD [address] [place] [address] documented as of this encounter Visit Diagnoses Not on filedocumented in this encounter Care Teams Glass Science Engineer Relationship Specialty Start Date End Date Sariah Vickers ANP [address] [place] [address] PCP - General Family Medicine 09/23/19 Yuri Pierer, PharmD [address] [place] [address] Pharmacist Internal Medicine 05/05/24 Basilio Hall MD 596 [place] [address] Cardiology 05/17/24 Ron Preciado MD [address] [place] [address] Pulmonary Disease 05/17/24 documented as of this encounter
--- OUTSIDE RECORDS SUMMARY | 2024-12-18 05:41 | XMS_ITS | Encounter Summary ---
Author Organization [employer] Address [address] [facility] 7t [place] [address] Care Team Providers Care Top Frame Fitter Name Role Phone Sariah Vickers Primary Care Provider [phone] Yuri Pierre PharmD Unavailable [phone] Basilio Hall MD Unavailable [phone] Ron Preciado MD Unavailable [phone] Reason for Visit * Reason Comments Med Refill Encounter Details Date Type Department Care Team (Late st Contact Info) Description 03/03/2022 Refill [facility] [address] [place] [address] Sariah Vickers ANP 230 [place] [address] Social History Tobacco Use Types Packs/Day Years [...] Description 01/07/2025 9:30 AM EST Clinical Support [facility] [address] [place] [address] Azeb Hall RN 505 [place] [address] 01/11/2025 1:00 PM EST Office Visit [address] [address] Sariah Vickers ANP [address] [place] [address] 02/03/2025 11:00 AM EST Medication Management [address] [address] Yuri Pierre, PharmBear [address] [place] [address] documented as of this encounter Visit Diagnoses Not on filedocumented in this encounter Care Teams Top Frame Fitter Relationship Specialty Start Date End Date Sariah Vickers ANP [address] [place] [address] PCP - General Family Medicine 09/23/19 Yuri Pierre, PharmD [address] [place] [address] Pharmacist Internal Medicine 05/05/24 Basilio Hall MD [address] [place] [address] Cardiology 05/17/24 Ron Preciado MD [address] [place] [address] Pulmonary Disease 05/17/24 documented as of this encounter
--- OUTSIDE RECORDS SUMMARY | 2024-12-18 05:41 | XMS_ITS | Encounter Summary ---
Author Organization [employer] Address 75 [facility] 7t [place] [address] Care Team Providers Care Equipment Installer Name Role Phone Sariah Vickers Primary Care Provider [phone] Yuri Pierre PharmD Unavailable [phone] Basilio Hall MD Unavailable [phone] Ron Preciado MD Unavailable [phone] Reason for Visit * Reason Comments Med Refill Encounter Details Date Type Department Care Team (Late st Contact Info) Description 12/07/2024 Refill [facility] 230 [place] [address] Sariah Vickers ANP 230 [place] [address] Social History Tobacco Use Types Packs/Day Years [...] Description 01/07/2025 9:30 AM EST Clinical Support [address] [address] Azeb Hall RN 505 [place] [address] 01/11/2025 1:00 PM EST Office Visit [facility] [address] [place] [address] Sariah Vickers, ANP [address] [place] [address] 02/03/2025 11:00 AM EST Medication Management [address] [address] Yuri Pierre, PharmD [address] [place] [address] documented as of this encounter Goals Goal [...] documented as of this encounter Care Teams Equipment Installer Relationship Specialty Start Date End Date Sariah Vickers ANP 230 [place] [address] PCP - General Family Medicine 09/23/19 Yuri Pierre, MikeD 230 [place] [address] Pharmacist Internal Medicine 05/05/24 Basilio Hall MD 5[address] [place] [address] Cardiology 05/17/24 Ron Preciado MD [address] [place] [address] Pulmonary Disease 05/17/24 documented as of this encounter
--- OUTSIDE RECORDS SUMMARY | 2024-12-18 05:41 | XMS_ITS | Encounter Summary ---
Author Organization [employer] Address 75 [facility] 7t [place] [address] Care Team Providers Care Crewman Main Battle Tank Name Role Phone Sariah Vickers Primary Care Provider [phone] Yuri Pierre PharmD Unavailable [phone] Basilio Hall MD Unavailable [phone] Ron Preciado MD Unavailable [phone] Encounter Details Date Type Department Care [...] Description 01/07/2025 9:30 AM EST Clinical Support [address] [address] Azeb Hall RN 505 [place] [address] 01/11/2025 1:00 PM EST Office Visit [address] [address] Sariah Vickers ANP [address] [place] [address] 02/03/2025 11:00 AM EST Medication Management [address] [place] [address] Yuri Pierre, PharmD 230 [place] [address] documented as of this encounter Visit Diagnoses Not on filedocumented in this encounter Care Teams Crewman Main Battle Tank Relationship Specialty Start Date End Date Sariah Vickers ANP 230 [place], [place] [phone] PCP - General Family Medicine 09/23/19 Yuri Pierre, PharmD 230 [place], [place] [phone] Pharmacist Internal Medicine 05/05/24 Basilio Hall MD [address] [place] [address] Cardiology 05/17/24 Ron Preciado MD [address] [place] [address] Pulmonary Disease 05/17/24 documented as of this encounter
--- OUTSIDE RECORDS SUMMARY | 2024-12-18 05:41 | XMS_ITS | Encounter Summary ---
Author Organization [employer] Address [address] [place] [address] 7t [place] [address] Care Team Providers Care Certified Ophthalmic Assistant Name Role Phone Sariah Vickers Primary Care Provider [phone] Yuri Pierre PharmD Unavailable [phone] Basilio Hall MD Unavailable [phone] Ron Preciado MD Unavailable [phone] Reason for Visit * Reason Onset Date Comments Nurse Triage 11/01/2022 Encounter Details Date Type Department Care Team (Late st Contact Info) Description 11/01/2022 Telephone [facility] [address] [place] [address] Sariah Vickers ANP [address] [place] [address] Nurse Triage Social History Tobacco Use Types [...] 11/01/2022 3:51 PM EDT Triage call with [facility] Engineer [place] [id number] Pt reports blood sugars have been high [...] Description 01/07/2025 9:30 AM EST Clinical Support [facility] [address] [place] [address] Azeb Hall RN 505 [place] [address] 01/11/2025 1:00 PM EST Office Visit [address] [address] Sariah Vickers ANP [address] [place] [address] 02/03/2025 11:00 AM EST Medication Management [facility] [address] [place] [address] Yuri Pierre, PharmD 230 [place] [address] documented as of this encounter Goals Goal [...] on filedocumented in this encounter Care Teams Certified Ophthalmic Assistant Relationship Specialty Start Date End Date Sariah Vickers ANP 230 [place] [address] PCP - General Family Medicine 09/23/19 Yuri Pierre, PharmD 230 [place] [address] Pharmacist Internal Medicine 05/05/24 Basilio Hall MD 596 [place] [address] Cardiology 05/17/24 Ron Preciado MD [address] [place] [address] Pulmonary Disease 05/17/24 documented as of this encounter
--- OUTSIDE RECORDS SUMMARY | 2024-12-18 05:41 | XMS_ITS | Encounter Summary ---
Author Organization [employer] Address 75 [facility] 7t [place] [address] Care Team Providers Care Divider Operator Name Role Phone Sariah Vickers Primary Care Provider [phone] Yuri Pierre PharmD Unavailable [phone] Basilio Hall MD Unavailable [phone] Ron Preciado MD Unavailable [phone] Encounter Details Date Type Department Care Team (Late st Contact Info) Description 01/09/2022 Abstract [facility] [address] [place] [address] Dental, Provider, DDS Social History Tobacco Use [...] 01/07/2025 9:30 AM EST Clinical Support [address] [address] Azeb Hall RN 505 [place] [address] 01/11/2025 1:00 PM EST Office Visit [facility] [address] [place] [address] Sariah Vickers ANP [address] [place] [address] 02/03/2025 11:00 AM EST Medication Management [facility] 230 [place] [address] Yuri Pierre, PharmD [address] [place] [address] documented as of this encounter Procedures Procedure [...] on filedocumented in this encounter Care Teams Divider Operator Relationship Specialty Start Date End Date Sariah Vickers ANP [address] [place] [address] PCP - General Family Medicine 09/23/19 Yuri Pierre, MikeD [address] [place] [address] Pharmacist Internal Medicine 05/05/24 Basilio Hall MD [address] [place] [address] Cardiology 05/17/24 Ron Preciado MD [address] [place] [address] Pulmonary Disease 05/17/24 documented as of this encounter
[2024-12-18 05:42] VITALS: BP 108/62; PULSE 76; RESP 18; TEMP 36.4; O2SAT 92
--- OUTSIDE RECORDS SUMMARY | 2024-12-18 05:42 | XMS_ITS | Encounter Summary ---
Author Organization [employer] Address [address] [facility] 7t [place] [address] Care Team Providers Care Oracle Consultant Name Role Phone Sariah Vickers Primary Care Provider [phone] Yuri Pierre PharmD Unavailable [phone] Basilio Hall MD Unavailable [phone] Ron Preciado MD Unavailable [phone] Reason for Visit * Reason Onset Date Comments Med Refill 09/18/2023 Encounter Details Date Type Department Care Team (Late st Contact Info) Description 09/18/2023 Telephone [facility] 230 [place], [place] [phone] Sariah Vickers ANP 230 [place], [place] [phone] Med Refill Social History Tobacco Use Types [...] refill : Tramadol To be sent to: [facility] - [place], [place] - [address] [place] [address] documented in this encounter Plan of Treatment Upcoming Encounters Date Type Department Care Team ([facility] st Contact Info) Description 01/07/2025 9:30 AM EST Clinical Support [address] [address] Azeb Hall RN 505 [place] [address] 01/11/2025 1:00 PM EST Office Visit [address] [address] Sariah Vickers ANP [address] [place] [address] 02/03/2025 11:00 AM EST Medication Management [address] [address] Yuri Pierre, PharmD 230 [place] [address] documented as of this encounter Goals Goal Patient Goal Type Associated Problems Recent Progress Patient-Stated? Author Blood Pressure < 140/90 Blood Pressure 125/85(2024 12:36 PM EDT) No Phanis-Dileepl Aida urbina PharmD Record [...] documented as of this encounter Care Teams Oracle Consultant Relationship Specialty Start Date End Date Sariah Vickers ANP 230 [place] [address] PCP - General Family Medicine 09/23/19 Yuri Pierre, PharmD 230 [place] [address] Pharmacist Internal Medicine 05/05/24 Basilio Hall MD 596 [place] [address] Cardiology 05/17/24 Ron Preciado MD [address] [place] [address] Pulmonary Disease 05/17/24 documented as of this encounter
--- OUTSIDE RECORDS SUMMARY | 2024-12-18 05:42 | XMS_ITS | Encounter Summary ---
Author Organization [employer] Address [address] [facility] 7t [place] [address] Care Team Providers Care Store Clerk Checker Name Role Phone Sariah Vickers Primary Care Provider Yuri Pierre PharmD Unavailable [phone] Basilio Hall MD Unavailable [phone] Ron Preciado MD Unavailable [phone] Reason for Visit * Reason Onset Date Comments Referral 08/02/2024 Encounter Details Date Type Department Care Team (Late st Contact Info) Description 08/02/2024 Telephone [facility] [address] [place], [place] [phone] Sariah Vickers ANP 230 [place], [place] [phone] Referral Social History Tobacco Use Types Packs/Day [...] for vertigo therapy. Please contact pt at [phone]. (Israeli Speaker) documented in this encounter Plan of Treatment Upcoming Encounters Date Type Department Care Team ([facility] st Contact Info) Description 01/07/2025 9:30 AM EST Clinical Support [facility] [address] [place] [address] Azeb Hall, MARTIN [address] [place] [address] 01/11/2025 1:00 PM EST Office Visit [address] [address] Sariah Vickers ANP [address] [place] [address] 02/03/2025 11:00 AM EST Medication Management [facility] [address] [place] [address] Yuri Pierre, Dileep [address] [place] [address] documented as of this encounter Goals Goal Patient Goal Type Associated Problems Recent Progress Patient-Stated? Author Blood Pressure < 140/90 Blood Pressure 125/85(2024 12:36 PM EDT) No Aida Ragland PharmBear Record [...] documented as of this encounter Care Teams Store Clerk Checker Relationship Specialty Start Date End Date Sariah Vickers ANP [address] [place] [address] PCP - General Family Medicine 09/23/19 Yuri Pierre, PharmD [address] [place] [address] Pharmacist Internal Medicine 05/05/24 Basilio Hall MD 5[address] [place] [address] Cardiology 05/17/24 Ron Preciado MD [address] [place] [address] Pulmonary Disease 05/17/24 documented as of this encounter
--- OUTSIDE RECORDS SUMMARY | 2024-12-18 05:42 | XMS_ITS | Clinical Summary ---
Author Organization [employer] Address [address] [facility] [address] [place] [address] Care Team Providers Care Approver Name Role Phone Anthony Ruiz KAYLEE Primary Care Provider [phone] Yuri Pierre PharmD Unavailable [phone] Basilio Hall MD Unavailable [phone] Ron Preciado MD Unavailable [phone] Allergies Active Allergy Reactions Criticality Noted [...] mouth in the morning. Active Lactobacillus-In ulin ([facility]) capsule 023 Active Xolair 150 [...] EVENING 90 tablet 1 Active Continuous Glucose Cable Layer (FreeStyle Jalil 3 [place]) device 1 each Once per day. Use [...] eye(s) 2 times daily. 10 mL Active insulin lispro (HumaLOG KWIKPEN) 100 UNIT/ML [...] IN THE EVENING 180 tablet 1 Active Blood Glucose Monitoring Suppl (FreeStyle Lite) w/Device kit 1 each 3 times daily. 1 kit Active Denta 5000 Plus 1.1 % cream APPLY TO TEETH TWICE DAILY DIRECTED 102 g Active levothyroxine (Synthroid, Levoxyl) 88 MCG tablet Take 88 mcg by mouth in the morning. 025 Active Baqsimi Two Pack 3 MG/DOSE nasal powderIndication s:Type 2 diabetes mellitus with diabetic neuropathy, with long-term current use of insulin ([facility]) [...] nebulizer solutionIndicati ons:Severe persistent asthma without complication ([facility]) INHALE 1 AMPULE USING A NEBULIZER EVERY 6 HOURS NEEDED 90 mL 5 025 Active TRUEplus Glucose 4 g chewable tabletIndication s:Type 2 diabetes mellitus with hyperlipidemia ([facility]) CHEW 4 TABLETS NEEDED FOR low blood sugar (LESS THAN 70mg/dL) 50 tablet 12 025 Active acetaminophen (Tylenol) 325 MG tabletIndication s:Neck pain TAKE 1 TO 2 TABLETS BY MOUTH EVERY 6 HOURS NEEDED 120 tablet 10/29/2 025 Active traMADol (Ultram) 50 MG tabletIndication s:Cervicalgia Take 1 tablet (50 mg) by mouth every 12 (twelve) hours if needed for severe pain. Do not start before December 17, 2024. 60 tablet Active semaglutide (Ozempic) 2 MG/1.5ML solution pen-injectorIndi cations:Type 2 diabetes mellitus with hyperlipidemia (HCC) Inject 0.25 mg under the skin 1 (one) time per week. 1 each Active Continuous Glucose Sensor (Managed by Qcom G7 Sensor) miscIndications: Type 2 diabetes mellitus with hyperlipidemia (HCC) 1 each 3 times daily. Apply 1 sensor every 10 days 3 each 025 2024 Active glucose 4 g chewable tabletIndication s:Type 2 diabetes mellitus with hyperlipidemia (HCC) CHEW 4 TABLETS BY MOUTH NEEDED LOW FOR BLOOD SUGAR 50 tablet 12 024 2024 Discontinued semaglutide (Ozempic) 2 MG/1.5ML solution pen-injectorIndi cations:Type 2 diabetes mellitus with hyperlipidemia (HCC) Inject 0.5 mg under the skin 1 (one) time per week. 1 each 12 025 2024 Discontinued(R eorder (will not trigger notification to Pharmacy)) Diclofenac Sodium 1 % gelIndications:C hronic bilateral [...] nebulizer solutionIndicati ons:Severe persistent asthma without complication ([facility]) INHALE AMPULE USING A NEBULIZER EVERY 6 HOURS NEEDED 90 mL 5 025 2024 Discontinued acetaminophen (Tylenol) 325 MG tabletIndication s:Neck pain TAKE 1 TO 2 TABLETS BY MOUTH EVERY 6 HOURS NEEDED 120 tablet 025 2024 Discontinued Glutose 15 40 % gel oral gel Take 15 g by mouth if needed for low blood sugar. 60 g 2 025 2024 Discontinued traMADol (Ultram) 50 MG tabletIndication s:Cervicalgia TAKE 1 TABLET BY MOUTH TWICE DAILY IN THE MORNING AND AT BEDTIME NEEDED FOR SEVERE PAIN 60 tablet 025 2024 Discontinued(R eorder (will not [...] per day for 5 days. 10 tablet 2024 Continuous Glucose Cable Layer (Dexcom G7 Cable Layer) deviceIndication s:Type 2 diabetes mellitus with hyperlipidemia (HCC) 1 each Once per day for 1 day. 1 each 025 2024 Hospital, Clinic, or Other Facility [...] to seal bleeding vessel Will refer to truck assembler for followup if needed Return precautions for [...] is currently connected with services through [facility]. Pt needing additional support due [...] family. She will continue services with [facility] for OP therapy and psychiatry services. clinician will be available if needed during next medical appointment. PLAN: (check all that apply) Continue with current services (defined as services in the past 12 months) . Pt is engaged with OP therapy and psychiatry services with [facility] @ [facility] Excessive attrition [...] family. She will continue services with [facility] for OP therapy and psychiatry services. clinician will be available if needed during next medical appointment. PLAN: (check all that apply) Continue with current services (defined as services in the past 12 months) . Pt is engaged with OP therapy and psychiatry services with [facility] @ [facility] Fibromyalgia 07/31/2022 Asthma-COPD overlap syndrome (CMS/HCC) 3 [...] possible plantar fasciitis -referred today to data programmer x ongoing discomfort -may need orthopedic shoes [...] Plan (06/09/2024 1:53 PM EDT): Counseling done, [facility] was call Assessment & Plan (07/30/2023 12:52 [...] Patient to reach out to [facility] team as needed Assessment & Plan (08/07/2022 [...] 10/29/2022 Acute asthma exacerbation 07/31/2022 COPD exacerbation ([facility]) 07/31/2022 05/17/2024 Assessment & Plan (10/27/2023 4:48 [...] organization. Date Type Department Care Team Description 12/17/2024 Refill [facility] [address] [place] [id number] Anthony Ruiz ANP Chronic SI joint pain 12/16/2024 2:20 PM EDT Office Visit [facility] [address] [address] Type 2 diabetes mellitus with hyperlipidemia ([facility]/HCC) (Primary Dx) 12/16/2024 Telephone [facility] [address] [address] Brittney Nava MD Triage 12/16/2024 Travel 12/15/2024 Orders Only [facility] External Provider, [facility] 12/15/2024 Telephone [facility] [address] [place] [address] Anthony Ruiz ANP Med Refill 12/13/2024 Refill [facility] [address] [place] [address] Anthony Ruiz ANP Neck pain; Cervicalgia 12/12/2024 Refill [facility] [address] [place] [address] Anthony Ruiz ANP Cervicalgia 12/10/2024 Refill [facility] [address] [place] [phone] Anthony Ruiz ANP Type 2 diabetes mellitus with hyperlipidemia (HCC) 12/09/2024 Telephone [facility] [address] [place] [phone] Anthony Ruiz ANP Results 12/08/2024 Orders Only GENERIC EXTERNAL DATA DEPARTMENT Provider, Generic External Data 12/07/2024 Refill [facility] [address] [place] [phone] Anthony Ruiz ANP 12/03/2024 10:20 AM EDT Office Visit [facility] [address] [address] Jess Coyne MD Acute bronchitis, unspecified organism (Primary Dx); Severe persistent asthma without complication (HCC) 12/02/2024 Refill [facility] [address] [place] [address] Anthony Ruiz ANP Type 2 diabetes mellitus with diabetic neuropathy, with long-term current use of insulin (HCC) 12/01/2024 Refill [facility] [address] [place] [address] Debra Faye MD Chronic bilateral low back pain, unspecified whether sciatica present 11/24/2024 Refill [facility] [address] [place] [phone] Anthony Ruiz ANP Essential hypertension; Severe persistent asthma without complication (HCC) 11/23/2024 Orders Only [facility] [address] [place] [phone] Anthony Ruiz ANP 11/19/2024 Refill [facility] [address] [place] [address] Chava Presley MD 11/16/2024 Refill [facility] [address] [place] [address] Anthony Ruiz ANP Type 2 diabetes mellitus with diabetic neuropathy, with long-term current use of insulin ([facility]) 11/15/2024 Travel 11/14/2024 Refill [facility] [address] [place] [address] Anthony Ruiz ANP Cervicalgia 11/12/2024 Refill [facility] [address] [place] [phone] Anthony Ruiz ANP Neck pain 11/11/2024 Refill [facility] [address] [place] [phone] Yogesh Gomez, JOHN 11/10/2024 3:30 PM EDT Immunization [facility] [address] [place] [address] Yohana Quinn RN Encounter for immunization 11/10/2024 Travel 11/09/2024 9:00 AM EDT Office Visit [facility] [address] [place] [phone] Chava Presley MD Type 2 diabetes mellitus with hyperlipidemia ([facility]) (Primary Dx) 11/09/2024 Telephone [facility] [address] [place] [address] Azeb Hall RN 11/09/2024 Travel 11/08/2024 Telephone [facility] [address] [place] [phone] Anthony Ruiz ANP Nurse Triage 11/05/2024 2:30 PM EDT Office Visit [address] [address] Hallie Tapia MD Boils (Primary Dx) 11/05/2024 Travel 11/03/2024 Telephone [facility] [address] [place] [phone] Anthony Ruiz ANP Results 11/01/2024 2:45 PM EDT Office Visit [address] [address] Reta Sue MD Vaginal bleeding (Primary Dx); Dietary counseling; Exercise counseling; Class 2 obesity without serious comorbidity with body mass index (BMI) of 35.0 to 35.9 in adult, unspecified obesity type; Vulvar itching; Constipation, unspecified constipation type; Hemorrhoids, unspecified hemorrhoid type 11/01/2024 Travel 10/29/2024 Refill [facility] [address] [place] [address] Anthony Ruiz ANP Neck pain 10/26/2024 Results Follow-Up [facility] [address] [place] [phone] Anthony Ruiz ANP Thyroid Peroxidase Antibodies, Cardiolipin Antibodies (IgA,IgG,IgM) 10/25/2024 Refill [facility] [address] [place] [address] Anthony Ruiz ANP 10/23/2024 Refill [facility] [address] [place] [phone] Anthony Ruiz ANP 10/22/2024 Orders Only GENERIC EXTERNAL DATA DEPARTMENT Provider, Generic External Data 10/20/2024 Results Follow-Up [address] [address] Anthony Ruiz ANP Prothrombin Time-INR, C-reactive Protein, Amylase, Additional followed-up results: 7 10/19/2024 Refill [facility] [address] [place] [address] Anthony Ruiz ANP Cervicalgia 10/14/2024 1:30 PM EDT Office Visit [facility] [address] [place] [phone] Anthony Ruiz ANP Type 2 diabetes mellitus with hyperlipidemia (CMS/HCC) (CMS/HCC) (Primary Dx); Chronic pain of both knees; Chronic SI joint pain; Primary osteoarthritis of both knees; Essential hypertension; Long-term current use of opiate analgesic; OKEEFE (nonalcoholic steatohepatitis); Asthma-COPD overlap syndrome (CMS/HCC) 10/14/2024 Travel 10/13/2024 10:40 AM EDT Office Visit [facility] [address] [place] [phone] Chava Presley MD Essential hypertension (Primary Dx) 10/13/2024 Travel 10/12/2024 Orders Only GENERIC EXTERNAL DATA DEPARTMENT Provider, Generic External Data 10/09/2024 Refill [facility] [address] [place] [phone] Anthony Ruiz ANP Severe persistent asthma without complication 10/06/2024 Travel 10/04/2024 Refill [facility] [address] [place] [address] Zakia Uriostegui NP Type 2 diabetes mellitus with hyperglycemia ([facility]) 10/01/2024 11:00 AM EDT Clinical Support [facility] [address] [place] [address] Azeb Hall, RN Neck pain 10/01/2024 Telephone [facility] [address] [place] [address] Azeb Hall RN 10/01/2024 Travel 09/30/2024 Telephone [facility] [address] [place] [address] Anthony Ruiz ANP Referral 09/30/2024 Telephone [facility] [address] [place] [address] Anthony Ruiz ANP Referral 09/30/2024 Refill [facility] [address] [place] [address] Anthony Ruiz ANP Chronic SI joint pain 09/28/2024 Orders Only [facility] [address] [place] [address] Anthony Ruiz ANP 09/25/2024 Refill [facility] [address] [place] [address] Anthony Ruiz ANP Chronic SI joint pain; Essential hypertension; Severe persistent asthma without complication 09/24/2024 2:00 PM EDT Office Visit [facility] [address] [place] [address] Luisa Martinez, OD Diabetes type 2, no ocular involvement ([facility]) (Primary Dx); Mixed type age-related cataract, both eyes; Lesion of left lower eyelid; Presbyopia 09/24/2024 Travel 09/19/2024 Refill [facility] [address] [place] [address] Debra Faye MD Cervicalgia from Last 3 Months Immunizations Immunization Administration [...] Mass Index 37.02 12/16/2024 12:36 PM EDT Plan of Treatment Upcoming Encounters Date Type Department Care Team (Late st Contact Info) Description 01/07/2025 9:30 AM EST Clinical Support [facility] [address] [place] [address] Azeb Hall RN [address] [place] [address] 01/11/2025 1:00 PM EST Office Visit [facility] [address] [place] [address] Anthony Ruiz, ANP [address] [place], [place] [phone] 02/03/2025 11:00 AM EST Medication Management [facility] [address], [place] [phone] Yuri Pierre, PharmD [address] [place], [place] [phone] Health Maintenance Due Date Last Done Comments [...] 2025 08/05/19 25, 09/12/2023, 08/12/2022 Tobacco Screening 12/16/2025 12/16/2024 Dental X-Ray: Full Mouth 09/12/2026 09/12/2023, 09/18 [...] EDT Type 2 diabetes mellitus with hyperlipidemia ([facility]/HCC) POCT GLUCOSE Routine 12/16/2024 1:06 PM EDT Type 2 diabetes mellitus with hyperlipidemia ([facility]/HCC) US ABDOMEN COMPLETE Routine 12/15/2024 9 :44 PM EDT XR CHEST 2 VIEWS Routine 12/08/2024 2:21 [...] WITH REFLEX Routine 10/22/2024 10:49 AM EDT [id number] I ANTIBODIES (IGG, IGA, IGM) Routine 10/22/2024 10:49 AM EDT ACTIN (SMOOTH MUSCLE) ANTIBODY (IGG) Routine 10/22/2024 10:49 AM EDT CARDIOLIPIN AB (IGA,IGG,IGM) Routine 10/22/2024 10:49 AM EDT THYROID PEROXIDASE ANTIBODIES Routine 10/22/2024 10:49 AM EDT POCT GLYCATED HEMOGLOBIN, TOTAL Routine 10/14/2024 1:54 PM EDT Type 2 diabetes mellitus with hyperlipidemia (CMS/HCC) (CMS/HCC) POCT GLUCOSE Routine 10/14/2024 1:52 PM EDT [...] Relevant to Health Maintenance Results * POCT Glucose (12/16/2024 2:44 PM EDT) Only the most recent of3 resultswithin the time period is included. Glucose Blood, POC 78 60 - 200 mg/dL QC Media Lot # [id number] Lot# Expiration Date [id number] Blood Capillary blood specimen / Unknown 12/16/2024 2:44 PM EDT us Samantha Kumar DO POINT OF CARE TEST ENTER/CHRISTINA T ORDERABLES Final Result * US Abdomen Complete (12/15/2024 9:44 PM EDT) Anatomical Region Laterality Modality Abdomen Ultrasound 12/15/2024 9:44 PM EDT Narrative 12/15/2024 9:46 PM EDT [address] [address] Ultrasound Report Signed Patient: Nuvia Fay MR #: [id number] : 1960 Acct:[id number] Age/Sex: 64 / F ADM Date: 12/15/24 Loc: HO.US Attending Dr: Umm PERALTA Ordering Physician: Umm Ellsworth Date of Service: 12/15/24 Procedure(s): US abdomen complete Accession Number(s): [id number] cc: Umm Ellsworth; ANTHONY RUIZ NP Reason for Exam: K75.81 - Nonalcoholic steatohepatitis (OKEEFE) CLINICAL HISTORY: K75.81 - Nonalcoholic steatohepatitis (OKEEFE) US abdomen complete Comparison: 11/05/2023 08:43 AM EDT Findings: Gallbladder unremarkable, no stone formation or wall thickening. Common duct measures 6.1 mm. No sonographic Perez sign. Liver is homogeneous and normal in size and echogenicity. Main portal vein patent with normal direction of flow. Pancreas is unremarkable. Aorta and IVC patent and normal in caliber. The right kidney is normal, 10.1 cm in length. No focal abnormality or hydronephrosis. The left kidney is normal, 10.8 cm in length. No focal abnormality or hydronephrosis. 3.9 cm upper pole cyst. The spleen is normal, 6.5 cm in length. No focal abnormality. Impression: No significant abnormalities. This document has been electronically signed by: Ever Marquez MD on 12/15/2024 21:44:10 Dictated By: Ever Marquez MD Signed By: <Electronically signed by Ever Marquez MD in OV> 12/15/242144 DD/ 43 TD/TT: 12/15/242143 Business Intelligence Developer: Procedure Note Otoniel, Image - 12/15/[address] [address] Ultrasound Report Signed Patient: Nuvia Fay EMR #: [id number] : 1960cct:[id number] Age/Sex: 64 / FADM Date: 12/15/24 Loc: HO.US Attending Dr: Umm PERALTA Ordering Physician: Umm Ellsworth Date of Service: 12/15/24 Procedure(s): US abdomen complete Accession Number(s): [id number] cc: Umm Ellsworth; ANTHONY RUIZ NP Reason for Exam: K75.81 - Nonalcoholic steatohepatitis (OKEEFE) CLINICAL HISTORY: K75.81 - Nonalcoholic steatohepatitis (OKEEFE) US abdomen complete Comparison: 11/05/2023 08:43 AM EDT Findings: Gallbladder unremarkable, no stone formation or wall thickening. Common duct measures 6.1 mm. No sonographic Perez sign. Liver is homogeneous and normal in size and echogenicity. Main portal vein patent with normal direction of flow. Pancreas is unremarkable. Aorta and IVC patent and normal in caliber. The right kidney is normal, 10.1 cm in length. No focal abnormality or hydronephrosis. The left kidney is normal, 10.8 cm in length. No focal abnormality or hydronephrosis. 3.9 cm upper pole cyst. The spleen is normal, 6.5 cm in length. No focal abnormality. Impression: No significant abnormalities. This document has been electronically signed by: Ever Marquez MD on 12/15/2024 21:44:10 Dictated By: Ever Marquez MD Signed By: <Electronically signed by Ever Marquez MD in OV> 12/15/242144 DD/ 43 TD/TT: 12/15/242143 Business Intelligence Developer: us [facility] External Provider IMG US PROCEDURES Edited Result - Final * XR Chest 2 Views (12/08/2024 2:21 PM EDT) Anatomical Region Laterality Modality Chest Radiographic Griselda ging 12/08/2024 2:21 PM EDT Narrative 12/08/2024 2:34 PM EDT [address] [address] XRay Report Signed Patient: Nuvia Fay MR #: [id number] : 1960 Acct:[id number] Age/Sex: 64 / F ADM Date: 12/08/24 Loc: HO.ED Attending Dr: Ordering Physician: Rosangela Ventura Date of Service: 12/08/24 Procedure(s): XR chest 2V Accession Number(s): [id number] cc: Rosangela Ventura; ANTHONY RUIZ NP Reason [...] 12/08/24 1431 DD/ 1421 TD/TT: 12/08/24 1428 Business Intelligence Developer: Procedure Note Donotuseinterpreter, Image - 12/08/[address] [address] XRay Report Signed Patient: Nuvia Fay EMR #: [id number] : 1960cct:[id number] Age/Sex: 64 / FADM Date: 12/08/24 Loc: HO.ED Attending Dr: Ordering Physician: Rosangela Ventura Date of Service: 12/08/24 Procedure(s): XR chest 2V Accession Number(s): [id number] cc: Rosangela Ventura; ANTHONY RUIZ NP Reason [...] 12/08/24 1431 DD/ 1421 TD/TT: 12/08/24 1428 Business Intelligence Developer: [facility] External Provider IMG XR PROCEDURES Final Result * Influenza A B2 ID NOW (Bailey) (12/08/2024 2:09 PM EDT) Pathologist [facility] IDNOW SERIAL# [id number] [facility] Influenza A Negative Negative [facility] Influenza B2 Negative Negative [facility] Influenza A B2 Note See Note [facility] Comment:The Bailey ID NOW [...] GENERAL ORDERABLES Final Result Performing Organization Address [facility]/ZIP Co de Phone Number [facility] [address] [place] [phone] * COVID-19 ID NOW (BAILEY) (12/08/2024 2:09 PM EDT) IDNOW SERIAL# [id number] [facility] COVID-19 TEST Negative Negative [facility] COVID-19 NOTE See Note [facility] Comment: Results are for the identification of SARS-CoV2 RNA. TheSARS-CoV2 RNA is generally detectable in respiratory samplesduring the acute phase of infection. Positive results areindicative of the presence of SARS-CoV-2 RNA; clinicalcorrelation with patient history and other diagnosticinformation is necessary to determine patient infectionstatus. Positive results do not rule out bacterial infectionor co- infection with other viruses.Testing facilities within the [facility] are required to report all positive results [...] GNOSTICS ORDERABLES Final Result Performing Organization Address City/[facility]/ZIP Co de Phone Number [facility] [address] [place] [phone] * High Sensitivity Troponin I (12/08/2024 2:09 PM EDT) [facility] TROPONIN I HIGH SENSITIVITY <2.7 <3.5 - 17.0 ng/L [facility] Comment:The Bailey high sens itivity Troponin-I results should beused in conjunction with other diagnostic information suchas ECG, clinical observations and information, and patientsymptoms to aid in the diagnosis of ID. 12/08/2024 2:09 PM EDT 12/08/2024 2:13 PM EDT us Generic External Data Provider LAB BLOOD ORDERAB LES Final Result [facility] [address] [place] [address] [phone] * (ABNORMAL) CBC auto differential (12/08/2024 2:09 PM EDT) [facility] White Blood Count 7.6 4.8 - 10.8 X10*3/uL [facility] Red Blood Count 4.67 4.20 - 5.50 X10*6/uL [facility] Hemoglobin 14.7 12.0 - 16.0 g/dl [facility] Hematocrit 44.2 37.0 - 47.0 % [facility] Mean Corpuscular Volume 94.6 80.0 - 98.0 fL [facility] Mean Corpuscular Hemoglobin 31.5 27.0 - 33.0 pg [facility] Mean Corpuscular HGB Conc 33.3 31.0 - 35.0 g/dl [facility] Red Cell Distribution Width 12.9 11.0 - 16.0 % [facility] Platelet Count 268 160 - 400 X10*3/uL [facility] Mean Platelet Volume 9.2(L) 9.4 - 12.3 fL [facility] Neutrophils Percent Auto 82.1(H) 45 - 73 % [facility] Imm Gran Pct Auto 0.3 0.0 - 0.4 % [facility] Lymphocytes Percent Auto 16.1(L) 20 - 40 % [facility] Monocytes Percent Auto 0.8(L) 2 - 11 % [facility] Eosinophils Percent Auto 0.3 0 - 4 % [facility] Basophils Percent Auto 0.4 0 - 2 % [facility] NRBC Pct Auto 0.0 0.0 - 0.2 /100WBC [facility] Neutrophils Absolute Auto 6.2 2.0 - 8.3 x10*3/uL [facility] Imm Gran Abs Auto 0.02 0.00 - 0.03 X10*3/uL [facility] Lymphocytes Absolute Auto 1.2 1.2 - 4.9 X10*3/uL [facility] Monocytes Absolute Auto 0.1 0.1 - 1.2 X10*3/uL [facility] Eosinophils Absolute Auto 0.0 0.0 - 0.4 X10*3/uL [facility] Basophils Absolute Auto 0.0 0.0 - 0.2 X10*3/uL [facility] NRBC Abs Auto 0.000 0.0 - 0.012 X10*3/uL [facility] 12/08/2024 2:09 PM EDT 12/08/2024 2:13 PM EDT us Generic External Data Provider LAB BLOOD ORDERAB LES Final Result Performing Organization Address [facility] Co de Phone Number [facility] [address] [place] [phone] * Magnesium (12/08/2024 2:09 PM EDT) Magnesium 2.1 1.6 - 2.6 mg/dL [facility] 12/08/2024 2:09 PM EDT 12/08/2024 2:13 PM EDT us Generic External Data Provider LAB BLOOD ORDERAB LES Final Result Performing Organization Address [facility] [facility] Co de Phone Number [facility] [address] [place] [address] [phone] * (ABNORMAL) Comprehensive Metabolic Panel (12/08/2024 2:09 PM EDT) Sodium 141 135 - 145 mmol/L [facility] Potassium 3.7 3.3 - 5.1 mmol/L [facility] Chloride 109(H) 96 - 108 mmol/L [facility] Carbon Dioxide 25 22 - 29 mmol/L [facility] Anion Gap 11(L) 12 - 20 [facility] Urea Nitrogen (BUN) 13 9 - 16 mg/dL [facility] Creatinine, Serum 0.90 0.5 - 1.4 mg/dL [facility] Creatinine Clr Calc Pharmacy 64.2 [facility] Comment:Provided height and weight: 152.4 cm,92.896 kg.eGFR (calculated from the MDRD study equation) and eCrCl(calculated from the Cockcroft-Gault equation) are based ondifferent parameters and may not yield comparable results.If eCrCl result is absurd, please check patient'sheight/weight. Estimated Glomerular Filt Rate >60 [facility] Comment:Chronic Kidney Disea se: Estimated GFR < 60 mL/min/1.08f5Xcnkaf Kidney Disease: Estimated GFR < 15 mL/min/1.73m2 Glucose 214(H) 60 - 115 mg/dL [facility] Calcium 9.8 8.4 - 10.2 mg/dL [facility] Bilirubin, Total 0.3 0.0 - 1.0 mg/dL [facility] Aspartate Amino Transferase 28 5 - 31 U/L [facility] Alanine Aminotransferase 16 0 - 31 U/L [facility] Total Protein 7.4 6.5 - 8.0 g/dL [facility] Albumin Level 4.2 3.5 - 5.0 g/dL [facility] Alkaline Phosphatase 101 39 - 117 U/L [facility] 12/08/2024 2:09 PM EDT 12/08/2024 2:13 PM EDT us Generic External Data Provider LAB BLOOD ORDERAB LES Final Result Performing Organization Address [facility] Co de Phone Number [facility] [address] [place] [phone] * Bacterial Vaginosis Panel (11/01/2024 12:00 AM EDT) TRICHOMONAS VAGINALIS DETECTION BY PCR NOT DETECTED Not Detect [facility] BACTERIAL VAGINOSIS DETECTION BY PCR NEGATIVE Negative [facility] Comment:The BV organism targ [...] DETECTION BY PCR NOT DETECTED Not Detect [facility] Eufemia glab krusei PCR NOT DETECTED Not Detect [facility] Swab Vaginal structure / Unknown 11/01/2024 11/01/2024 us Reta Sue MD LAB MICROBIOLOGY - GENERAL ORD ERABLES Final Result Performing Organization Address [facility] Co de Phone Number [facility] [address] [place] [phone] * Aelv-9-Pnicxbizdsnb I Antibodies (IgG, IgA, IgM) (10/22/2024 10:49 AM EDT) B2 Glycoprotein I IgG Antibody <2.0 <20.0 U/mL [facility] Comment:Value Interpretation ----- < 20.0 Antibody not detected> or = 20.0 Antibody detected B2 Glycoprotein I IgM Antibody <2.0 <20.0 U/mL [facility] Comment:Value Interpretation ----- < 20.0 Antibody not detected> or = 20.0 Antibody detected B2 Glycoprotein I IgA Antibody <2.0 <20.0 U/mL [facility] Comment: Value Interpretation----- < 20.0 Antibody not detected> or = 20.0 Antibody detectedThe antiphospholipid antibody syndrome (APS) is aclinical- pathologic correlation that includes aclinical event (e.g. arterial or venous thrombosis, morbidity) and persistent positiveantiphospholipid antibodies (IgM, IgG Cardiolipin frx0MXE antibodies greater than the 99th percentile;or a [...] therapy or aging.For additional information, please refer tohttp://education.[employer]/faq/KWP976(This link is being provided for informational/educational purposes only.)THIS TEST WAS PERFORMED AT:[facility]/[address] [place] [address]GFLEHNFDEAN CASAS MD,PHD 10/22/2024 10:4 9 AM EDT 10/22/2024 10:49 AM EDT us Generic External Data Provider LAB BLOOD ORDERAB LES Final Result [facility] [address] [place] [address] [phone] * (ABNORMAL) Thyroid Peroxidase Antibodies (10/22/2024 10:49 AM EDT) Thyroid Peroxidase Antibodies >900(A) <9 IU/mL [facility] Comment:THIS TEST WAS PERFOR MED AT:[facility] [address] [address]IHOVNHERNAN WARREN MD 10/22/2024 10:4 9 AM EDT 10/22/2024 10:49 AM EDT Generic External Data Provider LAB BLOOD ORDERAB LES Final Result Performing Organization Address [facility] Co de Phone Number [facility] [address] [place] [phone] * (ABNORMAL) Actin (Smooth Muscle) Antibody (IgG) (10/22/2024 10:49 AM EDT) Only the most recent of2 resultswithin the time period is included. Smooth Muscle Antibody 47(A) <20 U [facility] Comment:Reference Range: <20 U: [...] with AIH type 1.THIS TEST WAS PERFORMED AT:[facility] [place] [address]WXMYXGX W. MASON,MD,PHD 10/22/2024 10:4 9 AM EDT 10/22/2024 10:49 AM EDT Generic External Data Provider LAB BLOOD ORDERAB LES Final Result Performing Organization Address [facility]/ZIP Co de Phone Number [facility] [address] [place] [phone] * Lupus Anticoagulant Evaluation with Reflex (10/22/2024 10:49 AM EDT) Pathologist [facility] Lupus Interpretation see note [facility] Comment:A Lupus Anticoagulan t is not detected.Reference Range: Not DetectedFor additional information, please refer tohttp://education.[employer]/faq/KUF78m0(This link is being provided for informational/educational purposes only.)This interpretation is based on the following testresults. PTT (LAC) Screen 33 <=40 sec [facility] DRVVT Screen 35 <=45 sec [facility] Comment:THIS TEST WAS PERFOR MED AT:[facility] [place] [address]EFKBQZLDEAN CASAS MD,PHD dRVVT Confirmation TNP [facility] dRVVT 1:1 Mix TNP [facility] DRVVT 1:1 Mix Interpretation [facility] Hexagonal Phase Neutralization TNP [facility] Thrombin Clotting Time [facility] 10/22/2024 10:4 9 AM EDT 10/22/2024 10:49 AM EDT us Generic External Data Provider LAB BLOOD ORDERAB LES Final Result [facility] [address] [place] [phone] * Cardiolipin Antibodies (IgA,IgG,IgM) (10/22/2024 10:49 AM EDT) Cardiolipin Antibody (IgG) <2.0 GPL-U/mL [facility] Comment:Value Interpretation ----- < 20.0 Antibody not detected> or = 20.0 Antibody detected Cardiolipin Antibody (IgM) <2.0 MPL-U/mL [facility] Comment: Value Interpretation----- < 20.0 Antibody not detected> or = 20.0 Antibody detectedThe antiphospholipid antibody syndrome (APS) is aclinical- pathologic correlation that includes aclinical event (e.g. arterial or venous thrombosis, morbidity) and persistent positiveantiphospholipid antibodies (IgM, IgG Cardiolipin aio2HTQ antibodies greater than the 99th percentile; ora [...] therapy or aging.For additional information, please refer tohttp://education.[employer]/faq/EXZ877(This link is being provided for informational/educational purposes only.)THIS TEST WAS PERFORMED AT:[employer] [place] [address]UALITHERNAN WARREN MD 10/22/2024 10:4 9 AM EDT 10/22/2024 10:49 AM EDT Generic External Data Provider LAB BLOOD ORDERAB LES Final Result Performing Organization Address City/[facility]/ZIP Co de Phone Number [facility] [address] [place] [phone] * (ABNORMAL) POCT HGB A1C (10/14/2024 1:54 PM EDT) Hemoglobin A1C 6.6(A) 4.0 - 5.7 % QC Media Lot # [id number] Lot# Expiration Date Blood 10/14/2024 1:5 4 PM EDT us [facility] POINT OF CARE TEST ENTER/EDIT OR DERABLES Final Result * (ABNORMAL) TSH with Reflex to Free T4 (10/12/2024 2:10 PM EDT) TSH reflex Free T4 6.80(H) 0.32 - 4.0 uIU/mL [facility] 10/12/2024 2:10 PM EDT 10/12/2024 2:10 PM EDT Generic External Data Provider LAB BLOOD ORDERAB LES Final Result Performing Organization Address City/[facility] Co de Phone Number [facility] [address] [place] [phone] * Prothrombin Time-INR (10/12/2024 2:10 PM EDT) [facility] Prothrombin Time 10.9 10.9 - 12.4 SEC [facility] INTERNATIONAL NORM RATIO 1.0 0.9 - 1.1 [facility] Comment:INTERNATIONAL NORMAL IZED RATIO [...] Final Result Performing Organization Address [facility] Co de Phone Number [facility] [address] [place] [phone] * C-reactive Protein (10/12/2024 2:10 PM EDT) [facility] C Reactive Protein 0.31 < or = 0.50 mg/dL [facility] 10/12/2024 2:10 PM EDT 10/12/2024 2:10 PM EDT us Generic External Data Provider LAB BLOOD ORDERAB LES Final Result Performing Organization Address [facility] Co de Phone Number [facility] [address] [place] [phone] * (ABNORMAL) REX Screen,IFA, with Reflex to Titer and Pattern (10/12/2024 2:10 PM EDT) Anti Nuclear Antibody Screen POSITIV E(A) NEGATIVE [facility] Comment:REX IFA is a first l ine screen for detecting thepresence of up to approximately 150 autoantibodies invarious autoimmune diseases. A positive REX IFA resultis suggestive of autoimmune disease and reflexes totiter and pattern. Further laboratory testing may beconsidered if clinically indicated.For additional information, please refer tohttp://education.[employer]/faq/MWL272(This link is being provided for informational/educational purposes only.)THIS TEST WAS PERFORMED AT:[employer] [place] [address]HERNAN WARREN MD REX Titer 1:1280( A) titer [facility] Comment:Reference Range <1:4 0 Negative 1:40-1:80 Low Antibody Level >1:80 Elevated Antibody Level REX Pattern Nuclear , Homogen eous(A) [facility] Comment:Homogeneous pattern is associated with systemic lupuserythematosus (SLE), drug-induced lupus and juvenileidiopathic arthritis.AC-1: HomogeneousInternational Consensus on REX Patterns(https://doi.org/10.1515/cinh-1878-4144)THIS TEST WAS PERFORMED AT:[employer] [place] [address]HERNAN WARREN MD REX Titer 2 TNP [facility] REX Pattern 2 TNP [facility] REX TITER 3 TNP [facility] REX PATTERN 3 TNP [facility] 10/12/2024 2:10 PM EDT 10/12/2024 2:10 PM EDT us Generic External Data Provider LAB BLOOD ORDERAB LES Final Result [facility] [address] [place] [address] [phone] * T4, Free (10/12/2024 2:10 PM EDT) Free T4 (Free Thyroxine) 0.99 0.71 - 1.85 ng/dL [facility] 10/12/2024 2:10 PM EDT 10/12/2024 2:10 PM EDT us Generic External Data Provider LAB BLOOD ORDERAB LES Final Result Performing Organization Address City/[facility]/ZIP Co de Phone Number [facility] [address] [place] [phone] * Lipase (10/12/2024 2:10 PM EDT) Lipase 20 8 - 78 U/L [facility] 10/12/2024 2:10 PM EDT 10/12/2024 2:10 PM EDT Generic External Data Provider LAB BLOOD ORDERAB LES Final Result Performing Organization Address [facility] Phone Number [facility] [address] [place] [phone] * (ABNORMAL) Hemoglobin A1c (10/12/2024 2:10 PM EDT) Hemoglobin A1c 6.5(H) <6.0 % [facility] Comment:Hemoglobin A1C Refer ence Range Adults: 4.8 - 6.0 % Non diabetic: < 6.0 % Goal: < 7.0 %Additional Action Suggested: > 8.0 %Note: Hemoglobin A1c results are invalid for patients with abnormal amounts of HbF. Blood transfusions may impact the HbA1c concentration in the patient sample. Estimated Average Glucose 140 mg/dL [facility] Comment:eAG = Estimated ave rage glucose which is %A1C expressed asaverage glucose, using the formula of the D7A-EmdsvnuBaxckxt Glucose study (ADAG), Diabetes Care, Vol.31,#8,Sep. 2007 10/12/2024 2:10 PM EDT 10/12/2024 2:10 PM EDT Generic External Data Provider LAB BLOOD ORDERAB LES Final Result Performing Organization Address [facility] Co de Phone Number [facility] [address] [place] [phone] * Ferritin (10/12/2024 2:10 PM EDT) Ferritin 69 10 - 250 ng/mL [facility] 10/12/2024 2:10 PM EDT 10/12/2024 2:10 PM EDT us Generic External Data Provider LAB BLOOD ORDERAB LES Final Result Performing Organization Address [facility] Co de Phone Number [facility] [address] [place] [phone] * Amylase (10/12/2024 2:10 PM EDT) Amylase 36 28 - 100 U/L [facility] 10/12/2024 2:10 PM EDT 10/12/2024 2:10 PM EDT us Generic External Data Provider LAB BLOOD ORDERAB LES Final Result Performing Organization Address [facility] de Phone Number [facility] [address] [place] [phone] * CT Lung Screening Low dose (10/09/2024 1:18 PM EDT) Anatomical Region Laterality Modality Lung Computed Tomogra phy 10/09/2024 1:18 PM EDT Narrative 10/09/2024 1:20 PM EDT [address] [address] [address] Scan Report Signed Patient: Nuvia Fay MR #: [id number] : 1960 Acct:[id number] Age/Sex: 64 / F ADM Date: 10/08/24 Loc: HO.CT Attending Dr: Ron Preciado MD Ordering Physician: Ron Preciado MD Date of Service: 10/08/24 Procedure(s): CT lung screening Accession Number(s): [id number] cc: Ron Preciado MD; ANTHONY RUIZ NP Report Number: [id number]: Total DLP = 64.00 mGy-cm CLINICAL HISTORY: [...] 1319 DD/ 1318 TD/TT: 10/09/24 1318 Business Intelligence Developer: Procedure Note Donotuseinterpreter, Image - 10/09/[address] [address] [address] Scan Report Signed Patient: Nuvia Fay EMR #: [id number] : 1Acct:[id number] Age/Sex: 64 / FADM Date: 10/08/24 Loc: HO.CT Attending Dr: Ron Preciado MD Ordering Physician: Ron Preciado MD Date of Service: 10/08/24 Procedure(s): CT lung screening Accession Number(s): [id number] cc: Ron Preciado MD; ANTHONY RUIZ NP Report Number: [id number]: Total DLP = 64.00 mGy-cm CLINICAL HISTORY: [...] 10/09/24 1319 DD/ 1318 TD/TT: 10/09/24 131 Business Intelligence Developer: [facility] External Provider IMG CT PROCEDURES Edited [...] - 10/01/2024 10:43 AM EDT .[employer] cup Lot#[id number] Exp. 11/23/25 Internal Pass Control Anthony Ruiz ANP POINT OF CARE TEST ENTER/EDIT OR DERABLES Final Result * Hepatitis C Antibody ([place] [facility]) (08/06/2024) Hepatitis C Ab Nonreactive Blood 08/06/2024 Historical Provider LAB BLOOD ORDERABLES Kelsey l Result * HIV Ab/Ag ([facility]) (08/06/2024) HIV Ag/Ab Nonreactive Blood 08/06/2024 [facility] Provider LAB BLOOD ORDERABLES Kelsey l Result * (ABNORMAL) Lipid Panel, Standard (06/18/2024 10:18 AM EDT) Triglycerides 122 <150 mg/dL [facility] Comment:Desirable Triglyceri de: less than 150 mg/dLBorderline High Triglyceride 150-199 mg/dLHigh Triglyceride: 200-499 mg/dLVery High Triglyceride: greater than or equal to 5OO mg/dL Cholesterol 216(H) <200 mg/dL [facility] Comment:Desirable Cholestero l: less than 200 mg/dLBorderline High Cholesterol: 200-239 mg/dLHigh Cholesterol: greater than 239 mg/dL LDL Cholesterol Calculated 128(H) <100 mg/dL [facility] Comment:Desirable LDL: less than 100 mg/dLNear Optimal/Above Optimal LDL: 110- 129 mg/dLBorderline High LDL: 130-159 mg/dLHigh LDL: 160-189 mg/dLVery High LDL: greater than or equal to 190 mg/dL HDL Cholesterol 64 >40 mg/dL [facility] Comment:Desirable HDL: great er than 40 mg/dL Note: This HDL assay may give artificially low results in patients with liver disease. Blood Venous blood specimen / Unknown 06/18/2024 10:18 AM EDT 06/18/2024 11:08 AM EDT [facility] PAGE LAB BLOOD ORDERABLES Final Resul t [facility] [address] [place] [address] [phone] * BI Mammogram Screening Tomosynthesis Bilateral (04/12/2024 1:48 PM EST) Anatomical Region Laterality Modality Breast Bilateral Mammography 04/12/2024 1:48 PM EST Narrative 04/17/2024 12:38 PM EST [facility] [address] [place], [place] [address] Mammography Report Signed Patient: Nuvia Fay MR #: [id number] : 1960 Acct:[id number] Age/Sex: 63 / F ADM Date: 04/12/24 Loc: HO.MAMMO Attending Dr: Monica Lozano CNM Ordering Physician: Monica Lozano CNM Results: 2Beni gn Findings Date of Service: 04/12/24 Follow Up: 1 Year From Orig inal Mammogram Procedure(s): MM tomosynthesis screening BI Accession Number(s): [id number] cc: Monica Lozano CNM; ANTHONY RUIZ NP [...] 04/17/24 1235 DD/ 1348 TD/TT: 04/12/24 1405 Business Intelligence Developer: Procedure Note Donotuseinterpreter, Image - 04/17/2024 [facility] [address] [place] [address] Mammography Report Signed Patient: Nuvia Fay EMR #: [id number] : 1Acct:[id number] Age/Sex: 63 / FADM Date: 04/12/24 Loc: HO.MAMMO Attending Dr: Monica Lozano CNM Ordering Physician: Monica LozanoMResults: 2Beni gn Findings Date of Service: 04/12/24Follow Up: 1 Year From Orig inal Mammogram Procedure(s): MM tomosynthesis screening BI Accession Number(s): [id number] cc: Monica Lozano CNM; ANTHONY RUIZ NP [...] 04/17/24 1235 DD/ 1348 TD/TT: 04/12/24 1405 Business Intelligence Developer: [facility] External Provider IMG BI PROCEDURES Edited Result - Final * Albumin, Random Urine W/Creatinine (01/02/2024 8:44 AM EST) Creatinine, Urine 47.20 mg/dL [facility] Microalbumin Urine 7.0 mg/L [facility] Microalbum Creatinine Ratio Ur 14.8 <30 ug/mg cr [facility] Comment:Albumin/Creatinine R atio Reference Ranges: Normal: < 30 ug/mg creatinine Microalbuminuria: 30 - 300 ug/mg creatinineClinical Albuminuria: > 300 ug/mg creatinine Urine (Urine, Random) 01/02/2024 8:44 AM EST 01/02/2024 11:09 AM EST [facility] LAB URINE ORDERABLES Final Resul t [facility] [address] [place] [phone] * (ABNORMAL) Hm Colonoscopy (12/27/2021) Colonoscopy Abnormal(A ) Normal Historical Provider HEALTH MAINTENANCE Final Result * HPV E6/E7 RFLX ALFRED 16 18/45 (05/09/2020 11:19 AM EDT) HPV mRNA E6/E7 rflx Not Detected Not Detected [facility] Comment: Methodology: Metal Furrer-Mediated Amplification This assay detects E6/E7 viral messenger RNA (mRNA) from 14 high-risk HPV types (16,18,31,33,35,39,45,51,52,56,58,59,66,68). The analytical performance characteristics of this assay have been determined by [employer]. The modifications have not been cleared or approved by the FDA. This assay has been validated pursuant to the CLIA regulations and is used for clinical purposes. For additional information, please refer to http://education.[employer]/faq/UPS712h1 (This link if provided for information/ educational purposes only.) THIS TEST WAS PERFORMED AT: [facility] [address] [place] [address],[place] [address] HERNAN WARREN MD 05/09/2020 11:1 9 AM EDT us [facility] HISTORICAL/NON ORDERABLE LABS Fi nal Result [facility] [address] [place] [address], from Last 3 Months or Most Recently Relevant to Health Maintenance Insurance [facility] [address] [id number] [facility] Care Teams Approver Relationship Specialty Start Date End Date Anthony Ruiz ANP [address] [place], [place] PCP - General Family Medicine 09/23/19 Yuri Pierre, MikeD [address], [place] Pharmacist Internal Medicine 05/05/24 Basilio Hall MD [address] [place] [address] Cardiology 05/17/24 Ron Preciado MD [address] [place] [address] Pulmonary Disease 05/17/24
--- OUTSIDE RECORDS SUMMARY | 2024-12-18 05:42 | XMS_ITS | Encounter Summary ---
Author Organization [employer] Address [address] [facility] [address] [place] [address] Care Team Providers Care Ore Bridge Operator Name Role Phone Sariah Vickers Primary Care Provider [phone] Yuri Pierre PharmD Unavailable [phone] Basilio Hall MD Unavailable [phone] Ron Preciado MD Unavailable [phone] Reason for Visit * Reason Comments Med Refill Encounter Details Date Type Department Care Team (Late st Contact Info) Description 11/24/2023 Refill [facility] [address] [place] [address] Sariah Vickers ANP [address] [place] [address] Vertigo Social History Tobacco Use Types Packs/Day [...] Description 01/07/2025 9:30 AM EST Clinical Support [address] [address] Azeb Hall, [place] [address] [place] [address] 01/11/2025 1:00 PM EST Office Visit [address] [address] Sariah Vickers ANP [address] [place] [phone] 02/03/2025 11:00 AM EST Medication Management [address] [address] Yuri Pierre, MikeD [address] [place] [phone] documented as of this encounter Goals Goal [...] as of this encounter Care Teams Ore Bridge Operator Relationship Specialty Start Date End Date Sariah Vickers ANP [address] [place] [address] PCP - General Family Medicine 09/23/19 Yuri Pierre, MikeD [address] [place] [phone] Pharmacist Internal Medicine 05/05/24 Basilio Hall MD [address] [place] [address] Cardiology 05/17/24 Ron Preciado MD [address] [place] [phone] Pulmonary Disease 05/17/24 documented as of this encounter
--- OUTSIDE RECORDS SUMMARY | 2024-12-18 05:42 | XMS_ITS | Encounter Summary ---
Author Organization [email or web address] Address 75 [facility] 7t [place] [address] Care Team Providers Care Solvent Plant Treater Name Role Phone Sariah Vickers Primary Care Provider [phone] Yuri Pierre PharmD Unavailable [phone] Basilio Hall MD Unavailable [phone] Ron Preciado MD Unavailable [phone] Reason for Visit * Reason Comments Med Refill Encounter Details Date Type Department Care Team (Late st Contact Info) Description 10/03/2023 Refill [facility] 230 [place] [address] Sariah Vickers ANP 230 [place], [place] [phone] Chronic SI joint pain Social History Tobacco [...] 01/07/2025 9:30 AM EST Clinical Support [address] [address] Azeb Hall, MARTIN 505 [place] [address] 01/11/2025 1:00 PM EST Office Visit [address] [address] Sariah Vickers ANP [address] [place] [address] 02/03/2025 11:00 AM EST Medication Management [address] [address] Yuri Pierre, MikeD [address] [place] [address] documented as of this encounter Goals Goal [...] documented as of this encounter Care Teams Solvent Plant Treater Relationship Specialty Start Date End Date Sariah Vickers ANP 230 [place] [address] PCP - General Family Medicine 09/23/19 Yuri Pierre, MikeD [address] [place] [address] Pharmacist Internal Medicine 05/05/24 Basilio Hall MD [address] [place] [address] Cardiology 05/17/24 Ron Preciado MD [address] [place] [address] Pulmonary Disease 05/17/24 documented as of this encounter
--- OUTSIDE RECORDS SUMMARY | 2024-12-18 05:42 | XMS_ITS | Encounter Summary ---
Author Organization [employer] Address 75 [facility] 7t [place] [address] Care Team Providers Care Director Asset Name Role Phone Sariah Vickers Primary Care Provider [phone] Yuri Pierre PharmD Unavailable [phone] Basilio Hall MD Unavailable [phone] Ron Preciado MD Unavailable [phone] Reason for Visit * Reason Onset Date Comments Results 12/09/2024 Encounter Details Date Type Department Care Team (Late st Contact Info) Description 12/09/2024 Telephone [facility] 230 [place], [place] [phone] Sariah Vickers ANP 230 [place], [place] [phone] Results Social History Tobacco Use Types Packs/Day [...] lab results Date when done: 12/08 Facility: [facility] Contact pt at [phone] ([email or web address]) documented in this encounter Plan of Treatment Upcoming Encounters Date Type Department Care Team ([facility] st Contact Info) Description 01/07/2025 9:30 AM EST Clinical Support [facility] [address] [place] [address] Azeb Hall RN 505 [place] [address] 01/11/2025 1:00 PM EST Office Visit [address] [address] Sariah Vickers ANP 230 [place] [address] 02/03/2025 11:00 AM EST Medication Management [facility] 230 [place] [address] Yuri Pierre, PharmD 230 [place] [address] documented as of this encounter Goals Goal [...] as of this encounter Care Teams Director Asset Relationship Specialty Start Date End Date Sariah Vickers ANP [address] [place] [address] PCP - General Family Medicine 09/23/19 Yuri Pierre, PharmD [address] [place] [address] Pharmacist Internal Medicine 05/05/24 Basilio Hall MD 596 [place] [address] Cardiology 05/17/24 Ron Preciado MD [address] [place] [address] Pulmonary Disease 05/17/24 documented as of this encounter
--- OUTSIDE RECORDS SUMMARY | 2024-12-18 05:42 | XMS_ITS | Encounter Summary ---
Author Organization [employer] Address 75 [facility] 7t [place] [address] Care Team Providers Care Concrete Placement Equipment Operator Name Role Phone Sariah Vickers KAYLEE Primary Care Provider [phone] Yuri Pierre PharmD Unavailable [phone] Basilio Hall MD Unavailable [phone] Ron Preciado MD Unavailable [phone] Reason for Visit * Reason Onset Date Comments Triage 12/16/2024 Encounter Details Date Type Department Care Team (Late st Contact Info) Description 12/16/2024 Telephone [facility] 230 [place] [address] Brittney Nava MD 230 [place] [address] Triage Social History Tobacco Use Types Packs/Day [...] encounter Miscellaneous Notes * Telephone Encounter - Deirdre Juares RN - 12/16/2024 12:39 PM EDT Patient presents to walk in center with a complaint of feeling dizzy states her blood sugar is low so she was eating a lollipop. Pt states that she believes her CGM doesn't work right it beeps all the time saying sugar is low. Glucose on [facility] monitor read 102 and CGM noted to be 20 points lower. Pt would like to be evaluated by provider and is very anxious over CGM. documented in this encounter Plan of Treatment Upcoming Encounters Date Type Department Care Team (Late st Contact Info) Description 01/07/2025 9:30 AM EST Clinical Support [facility] [address] [place] [address] Azeb Hall, MARTIN 505 [place], [place] [phone] 01/11/2025 1:00 PM EST Office Visit [facility] 230 [place] [address] Sariah Vickers ANP 230 [place] [address] 02/03/2025 11:00 AM EST Medication Management [facility] 230 [place] [address] Yuri Pierre, PharmD 230 [place] [address] documented as of this encounter Goals Goal [...] as of this encounter Care Teams Concrete Placement Equipment Operator Relationship Specialty Start Date End Date Sariah Vickers ANP [address] [place] [address] PCP - General Family Medicine 09/23/19 Yuri Pierre, PharmD [address] [place] [address] Pharmacist Internal Medicine 05/05/24 Basilio Hall MD [address] [place] [address] Cardiology 05/17/24 Ron Preciado MD [address] [place] [address] Pulmonary Disease 05/17/24 documented as of this encounter
--- OUTSIDE RECORDS SUMMARY | 2024-12-18 05:42 | XMS_ITS | Encounter Summary ---
Author Organization [employer] Address 75 [facility] 7t [place] [address] Care Team Providers Care Nuclear Reactor Operator Name Role Phone Anthony Ruiz Primary Care Provider [phone] Yuri Pierre PharmD Unavailable [phone] Basilio Hall MD Unavailable [phone] Ron Preciado MD Unavailable [phone] Encounter Details Date Type Department Care Team (Late st Contact Info) Description 09/28/2024 Orders Only [facility] 230 [place] [address] Anthony Ruiz ANP 230 [place] [address] Social History Tobacco Use Types Packs/Day Years [...] 01/07/2025 9:30 AM EST Clinical Support [address] [address] Azeb Hall, RN 505 [place] [address] 01/11/2025 1:00 PM EST Office Visit [address] [address] Anthony Ruiz ANP [address] [place] [address] 02/03/2025 11:00 AM EST Medication Management [address] [address] Yuri Pierre, PharmD [address] [place] [address] documented as of this encounter Goals Goal [...] PM EDT Narrative 10/09/2024 1:20 PM EDT [place] [address] [address] Scan Report Signed Patient: Nuvia Fay MR #: [id number] : [id number] Acct:[id number] Age/Sex: 64 / F ADM Date: 10/08/24 Loc: HO.CT Attending Dr: Ron Preciado MD Ordering Physician: Ron Preciado MD Date of Service: 10/08/24 Procedure(s): CT lung screening Accession Number(s): [id number] cc: Ron Preciado MD; ANTHONY RUIZ NP Report Number: [id number]: Total DLP = 64.00 mGy-cm CLINICAL HISTORY: [...] 10/09/24 1319 DD/ 1318 TD/TT: 10/09/24 1318 Annealing Furnace Tender: Procedure Note Donotuseinterpreter, Image - 10/09/[address] [place] [address] [address] Scan Report Signed Patient: Nuvia Fay EMR #: [id number] : [id number]:[id number] Age/Sex: 64 / FADM Date: 10/08/24 Loc: .CT Attending Dr: Ron Preciado MD Ordering Physician: Ron Preciado MD Date of Service: 10/08/24 Procedure(s): CT lung screening Accession Number(s): [id number] cc: Ron Preciado MD; ANTHONY RUIZ NP Report Number: [id number]: Total DLP = 64.00 mGy-cm CLINICAL HISTORY: [...] 10/09/24 1319 DD/ 1318 TD/TT: 10/09/24 1318 [employer]aling Furnace Tender: [facility] External Provider IMG CT PROCEDURES Edited Result - Final documented in this encounter Visit Diagnoses Not on filedocumented in this encounter Additional Health Concerns Assessment Noted Time PHQ-9 Depression Total Score: 12 024 2:58 PM EDT documented as of this encounter Care Teams Nuclear Reactor Operator Relationship Specialty Start Date End Date Anthony Ruiz ANP 230 [place] [address] PCP - General Family Medicine 09/23/19 Yuri Pierre, PharmD 230 [place] [address] Pharmacist Internal Medicine 05/05/24 Basilio Hall MD [address] [place] [address] Cardiology 05/17/24 Ron Preciado MD [address] [place] [address] Pulmonary Disease 05/17/24 documented as of this encounter
--- OUTSIDE RECORDS SUMMARY | 2024-12-18 05:42 | XMS_ITS | Encounter Summary ---
Author Organization [employer] Address 75 [facility] 7t [place] [address] Care Team Providers Care Day Trader Name Role Phone Sariah Vickers KAYLEE Primary Care Provider [phone] Yuri Pierre PharmD Unavailable [phone] Basilio Hall MD Unavailable [phone] Ron Preciado MD Unavailable [phone] Reason for Visit * Reason Comments Med Refill Encounter Details Date Type Department Care Team (Late st Contact Info) Description 10/04/2024 Refill [facility] [address] [place] [address] Zakia Uriostegui, SORORITY SUPERVISOR 230 [place] [address] Type 2 diabetes mellitus with hyperglycemia (CMS/HCC) [...] 01/07/2025 9:30 AM EST Clinical Support [address] [address] Azeb Hall, RN 505 [place] [address] 01/11/2025 1:00 PM EST Office Visit [facility] [address] [place] [address] Sariah Vickers, ANP [address] [place] [address] 02/03/2025 11:00 AM EST Medication Management [address] [address] Yuri Pierre, PharmD [address] [place] [address] documented as of this encounter Goals Goal [...] documented as of this encounter Care Teams Day Trader Relationship Specialty Start Date End Date Sariah Vickers ANP 230 [place] [address] PCP - General Family Medicine 09/23/19 Yuri Pierre PharmD 230 [place] [address] Pharmacist Internal Medicine 05/05/24 Basilio Hall MD 596 [place] [address] Cardiology 05/17/24 Ron Preciado MD [address] [place] [address] Pulmonary Disease 05/17/24 documented as of this encounter
--- OUTSIDE RECORDS SUMMARY | 2024-12-18 05:42 | XMS_ITS | Encounter Summary ---
Author Organization [employer] Address 75 [facility] 7t [place] [address] Care Team Providers Care Oriental Rug Stretcher Name Role Phone Sariah Vickers Primary Care Provider [phone] Yuri Pierre PharmD Unavailable [phone] Baislio Hall MD Unavailable [phone] Ron Preciado MD Unavailable [phone] Reason for Visit * Reason Onset Date Comments Nurse Triage 12/24/2022 Encounter Details Date Type Department Care Team (Late st Contact Info) Description 12/24/2022 Telephone [facility] 230 [place] [address] Sariah Vickers ANP 230 [place] [address] Nurse Triage Social History Tobacco Use Types [...] - 12/24/2022 1:11 PM EST Called pt.via Kasenna spanish interpreter [phone] Benjamin. Pt. States that she wants to [...] regimen and possible referral to a new Facilities Assistant due to pt. Not having jeremie in [...] accepted this outcome Please contact pt at [phone] documented in this encounter Plan of Treatment Upcoming Encounters Date Type Department Care Team (Late st Contact Info) Description 01/07/2025 9:30 AM EST Clinical Support [address] [address] Azeb Hall, RN 505 [place] [address] 01/11/2025 1:00 PM EST Office Visit [address] [address] Sariah Vickers ANP [address] [place] [address] 02/03/2025 11:00 AM EST Medication Management [address] [address] Yuri Pierre PharmD [address] [place] [address] documented as of this encounter Goals Goal [...] on filedocumented in this encounter Care Teams Oriental Rug Stretcher Relationship Specialty Start Date End Date Sariah Vickers ANP [address] [place] [address] PCP - General Family Medicine 09/23/19 Yuri Pierre, PharmD [address] [place] [address] Pharmacist Internal Medicine 05/05/24 Basilio Hall MD 596 [place] [address] Cardiology 05/17/24 Ron Preciado MD [address] [place] [address] Pulmonary Disease 05/17/24 documented as of this encounter
--- OUTSIDE RECORDS SUMMARY | 2024-12-18 05:42 | XMS_ITS | Encounter Summary ---
Author Organization [employer] Address 75 [facility] 7t [place] [address] Care Team Providers Care Java Software Architect Name Role Phone Sariah Vickers Primary Care Provider [phone] Yuri Pierre PharmD Unavailable [phone] Basilio Hall MD Unavailable [phone] Ron Preciado MD Unavailable [phone] Reason for Visit * Reason Comments Med Refill Encounter Details Date Type Department Care Team (Late st Contact Info) Description 11/26/2023 Refill [facility] 230 [place] [address] Sariah Vickers ANP 230 [place] [address] Vertigo Social History Tobacco Use Types Packs/Day [...] 01/07/2025 9:30 AM EST Clinical Support [address] [address] Azeb Hall, MARTIN 505 [place] [address] 01/11/2025 1:00 PM EST Office Visit [address] [address] Sariah Vickers ANP [address] [place] [address] 02/03/2025 11:00 AM EST Medication Management [address] [address] Yuri Pierre, MikeD [address] [place] [address] documented as of this encounter Goals Goal [...] as of this encounter Care Teams Java Software Architect Relationship Specialty Start Date End Date Sariah Vickers ANP 230 [place] [address] PCP - General Family Medicine 09/23/19 Yuri Pierre, MikeD [address] [place] [address] Pharmacist Internal Medicine 05/05/24 Basilio Hall MD 596 [place] [address] Cardiology 05/17/24 Ron Preciado MD [address] [place] [address] Pulmonary Disease 05/17/24 documented as of this encounter
--- OUTSIDE RECORDS SUMMARY | 2024-12-18 05:42 | XMS_ITS | Encounter Summary ---
Author Organization [employer] Address 75 [facility] 7t [place] [address] Care Team Providers Care Police Reserves Commander Name Role Phone Sariah Vickers Primary Care Provider [phone] Yuri Pierre PharmD Unavailable [phone] Basilio Hall MD Unavailable [phone] Ron Preciado MD Unavailable [phone] Reason for Visit * Reason Comments Med Refill Encounter Details Date Type Department Care Team (Late st Contact Info) Description 12/17/2024 Refill [facility] 230 [place] [address] Sariah Vickers ANP 230 [place] [address] Chronic SI joint pain Social History Tobacco [...] 01/07/2025 9:30 AM EST Clinical Support [address] [address] Azeb Hall RN 505 [place] [address] 01/11/2025 1:00 PM EST Office Visit [facility] [address] [place] [address] Sariah Vickers, ANP [address] [place] [address] 02/03/2025 11:00 AM EST Medication Management [address] [address] Yuri Pierre, PharmD [address] [place] [address] documented as of this encounter Goals Goal [...] as of this encounter Care Teams Police Reserves Commander Relationship Specialty Start Date End Date Sariah Vickers, KAYLEE 230 [place] [address] PCP - General Family Medicine 09/23/19 Yuri Pierre, Dileep 230 [place] [address] Pharmacist Internal Medicine 05/05/24 Basilio Hall MD [address] [place] [address] Cardiology 05/17/24 Ron Preciado MD [address] [place] [address] Pulmonary Disease 05/17/24 documented as of this encounter
--- OUTSIDE RECORDS SUMMARY | 2024-12-18 05:42 | XMS_ITS | Encounter Summary ---
Author Organization [employer] Address 75 [facility] 7t [place] [address] Care Team Providers Care Inclusion Special Education Teacher Name Role Phone Sariah Vickers Primary Care Provider [phone] Yuri Pierre PharmD Unavailable [phone] Basilio Hall MD Unavailable [phone] Ron Preciado MD Unavailable [phone] Reason for Visit * Reason Onset Date Comments Med Refill 02/04/2024 Encounter Details Date Type Department Care Team (Late st Contact Info) Description 02/04/2024 Telephone [facility] 230 [place] [address] Sariah Vickers ANP 230 [place], [place] [phone] Med Refill Social History Tobacco Use Types [...] 50 MG tablet To be sent to: [facility] - [place], [place] - [address] [place] [address] documented in this encounter Plan of Treatment Upcoming Encounters Date Type Department Care Team ([facility] st Contact Info) Description 01/07/2025 9:30 AM EST Clinical Support [address] [address] Azeb Hall RN 505 [place] [address] 01/11/2025 1:00 PM EST Office Visit [address] [address] Sariah Vickers ANP [address] [place] [address] 02/03/2025 11:00 AM EST Medication Management [address] [address] Yuri Pierre, PharmD 230 [place] [address] documented as of this encounter Goals Goal Patient Goal Type Associated Problems Recent Progress Patient-Stated? Author Blood Pressure < 140/90 Blood Pressure 125/85(2024 12:36 PM EDT) No Phanis-Gambl Aida urbina, PharmD [...] documented as of this encounter Care Teams Inclusion Special Education Teacher Relationship Specialty Start Date End Date Sariah Vickers ANP 230 [place] [address] PCP - General Family Medicine 09/23/19 Yuri Pierre, PharmD 230 [place] [address] Pharmacist Internal Medicine 05/05/24 Basilio Hall MD 596 [place] [address] Cardiology 05/17/24 Ron Preciado MD [address] [place] [address] Pulmonary Disease 05/17/24 documented as of this encounter
--- OUTSIDE RECORDS SUMMARY | 2024-12-18 05:42 | XMS_ITS | Encounter Summary ---
Author Organization [employer] Address 75 [facility] 7t [place] [address] Care Team Providers Care Retail Analyst Name Role Phone Sariah Vickers Primary Care Provider [phone] Yuri Pierre PharmD Unavailable [phone] Basilio Hall MD Unavailable [phone] Ron Preciado MD Unavailable [phone] Reason for Visit * Reason Comments Med Refill Encounter Details Date Type Department Care Team (Late st Contact Info) Description 10/17/2023 Refill [facility] 230 [place] [address] Sariah Vickers ANP 230 [place] [address] Neck pain Social History Tobacco Use Types [...] 01/07/2025 9:30 AM EST Clinical Support [address] [address] Azeb Hall, MARTIN 505 [place] [address] 01/11/2025 1:00 PM EST Office Visit [address] [address] Sariah Vickers ANP [address] [place] [address] 02/03/2025 11:00 AM EST Medication Management [address] [address] Yuri Pierre, MikeD [address] [place] [address] documented as of this encounter Goals [...] documented as of this encounter Care Teams Retail Analyst Relationship Specialty Start Date End Date Sariah Vickers ANP 230 [place] [address] PCP - General Family Medicine 09/23/19 Yuri Pierre, MikeD [address] [place] [address] Pharmacist Internal Medicine 05/05/24 Basilio Hall MD 596 [place] [address] Cardiology 05/17/24 Ron Preciado MD [address] [place] [address] Pulmonary Disease 05/17/24 documented as of this encounter
--- OUTSIDE RECORDS SUMMARY | 2024-12-18 05:42 | XMS_ITS | Encounter Summary ---
Author Organization [employer] Address 75 [facility] 7t [place] [address] Care Team Providers Care Qa Manager Name Role Phone Sariah Vickers Primary Care Provider [phone] Yuri Pierre PharmD Unavailable [phone] Basilio Hall MD Unavailable [phone] Ron Preciado MD Unavailable [phone] Reason for Visit * Reason Comments Med Refill Encounter Details Date Type Department Care Team (Late st Contact Info) Description 10/24/2023 Refill [facility] 230 [place] [address] Sariah Vickers ANP 230 [place] [address] Neck pain Social History Tobacco Use Types [...] Description 01/07/2025 9:30 AM EST Clinical Support [address] [address] Azeb Hall, MARTIN 505 [place] [address] 01/11/2025 1:00 PM EST Office Visit [address] [address] Sariah Vickers ANP [address] [place] [address] 02/03/2025 11:00 AM EST Medication Management [address] [address] Yuri Pierre, MikeD [address] [place] [address] documented as of this encounter Goals Goal [...] as of this encounter Care Teams Qa Manager Relationship Specialty Start Date End Date Sariah Vickers ANP 230 [place] [address] PCP - General Family Medicine 09/23/19 Yuri Pierre, MikeD [address] [place] [address] Pharmacist Internal Medicine 05/05/24 Basilio Hall MD 596 [place] [address] Cardiology 05/17/24 Ron Preciado MD [address] [place] [address] Pulmonary Disease 05/17/24 documented as of this encounter
--- OUTSIDE RECORDS SUMMARY | 2024-12-18 05:42 | XMS_ITS | Encounter Summary ---
Author Organization [employer] Address 75 [facility] 7t [place] [address] Care Team Providers Care Supervisor Briar Shop Name Role Phone Sariah Vickers Primary Care Provider Yuri Pierre PharmD Unavailable [phone] Basilio Hall MD Unavailable [phone] Ron Preciado MD Unavailable [phone] Reason for Visit * Reason Comments Med Refill Encounter Details Date Type Department Care Team (Late st Contact Info) Description 12/12/2024 Refill [facility] [address] [place] [address] Sariah Vickers ANP 230 [place] [address] Cervicalgia Social History Tobacco Use Types Packs/Day [...] 01/07/2025 9:30 AM EST Clinical Support [address] [address] Azeb Hall RN 505 [place] [address] 01/11/2025 1:00 PM EST Office Visit [facility] [address] [place] [address] Sariah Vickers, ANP [address] [place] [address] 02/03/2025 11:00 AM EST Medication Management [address] [address] Yuri Pierre, PharmD [address] [place] [address] documented as of this encounter Goals Goal [...] as of this encounter Care Teams Supervisor [employer]ar Shop Relationship Specialty Start Date End Date Sariah Vickers ANP 230 [place] [address] PCP - General Family Medicine 09/23/19 Yuri Pierre, MikeD 230 [place] [address] Pharmacist Internal Medicine 05/05/24 Basilio Hall MD [address] [place] [address] Cardiology 05/17/24 Ron Preciado MD [address] [place] [address] Pulmonary Disease 05/17/24 documented as of this encounter
--- OUTSIDE RECORDS SUMMARY | 2024-12-18 05:42 | XMS_ITS | Encounter Summary ---
Author Organization [employer] Address [address] 7t [place] [address] Care Team Providers Care Airplane Designer Name Role Phone Anthony Ruiz KAYLEE Primary Care Provider [phone] Yuri Pierre PharmD Unavailable [phone] Basilio Hall MD Unavailable [phone] Ron Preciado MD Unavailable [phone] Encounter Details Date Type Department Care Team (Late st Contact Info) Description 12/15/2024 Orders Only [facility] External Provider, [employer] Social History Tobacco Use Types Packs/Day Years [...] 01/07/2025 9:30 AM EST Clinical Support [address] [address] Azeb Hall, MARTIN 505 [place] [address] 01/11/2025 1:00 PM EST Office Visit [address] [address] Anthony Ruiz ANP [address] [place] [address] 02/03/2025 11:00 AM EST Medication Management [address] [address] Yuri Pierre, MikeD [address] [place] [address] documented as of this encounter Goals Goal [...] Procedure Name Priority Date/Time Associated Diagnosis Comments US ABDOMEN COMPLETE Routine 12/15/2024 9 :44 PM EDT documented in this encounter Results * US Abdomen Complete (12/15/2024 9:44 PM EDT) Anatomical Region Laterality Modality Abdomen Ultrasound 12/15/2024 9:44 PM EDT Narrative 12/15/2024 9:46 PM EDT [place] [address] Ultrasound Report Signed Patient: Nuvia Fay MR #: [id number] : 1960 Acct:[id number] Age/Sex: 64 / F ADM Date: 12/15/24 Loc: HO.US Attending Dr: Umm PERALTA Ordering Physician: Umm Ellsworth Date of Service: 12/15/24 Procedure(s): US abdomen complete Accession Number(s): [id number] cc: Umm Ellsworth; ANTHONY RUIZ NP Reason [...] in OV> 12/15/242144 DD/ 43 TD/TT: 12/15/242143 President And Chief Executive Officer: Procedure Note [employer], Image - 12/15/[address] [address] Ultrasound Report Signed Patient: Nuvia Fay EMR #: [id number] : 1960cct:[id number] Age/Sex: 64 / FADM Date: 12/15/24 Loc: HO.US Attending Dr: Umm PERALTA Ordering Physician: Umm Ellsworth Date of Service: 12/15/24 Procedure(s): US abdomen complete Accession Number(s): [id number] cc: Umm Ellsworth; ANTHONY RUIZ NP Reason [...] in OV> 12/15/242144 DD/ 43 TD/TT: 12/15/242143 President And Chief Executive Officer: us [employer] External Provider IMG US PROCEDURES Edited Result - Final documented in this encounter Visit Diagnoses Not on filedocumented in this encounter Additional Health Concerns Assessment Noted Time PHQ-9 Depression Total Score: 11 025 5:30 PM EDT documented as of this encounter Care Teams Airplane Designer Relationship Specialty Start Date End Date Anthony Ruiz ANP [address] [place] [address] PCP - General Family Medicine 09/23/19 Yuri Pierre, MikeD [address] [place] [address] Pharmacist Internal Medicine 05/05/24 Basilio Hall MD [address] [place] [address] Cardiology 05/17/24 Ron Preciado MD [address] [place] [address] Pulmonary Disease 05/17/24 documented as of this encounter
--- OUTSIDE RECORDS SUMMARY | 2024-12-18 05:42 | XMS_ITS | Encounter Summary ---
Author Organization [employer] Address [address] [facility] 7t [place] [address] Care Team Providers Care Surgical Services Asst Name Role Phone Sariah Vickers Primary Care Provider [phone] Yuri Pierre PharmD Unavailable [phone] Basilio Hall MD Unavailable [phone] Ron Preciado MD Unavailable [phone] Reason for Visit * Reason Comments Med Refill Encounter Details Date Type Department Care Team (Late st Contact Info) Description 12/19/2022 Refill [facility] 230 [place] [address] Sariah Vickers ANP 230 [place] [address] Vertigo Social History Tobacco Use Types Packs/Day [...] 01/07/2025 9:30 AM EST Clinical Support [address] [address] Azeb Hall RN 505 [place] [address] 01/11/2025 1:00 PM EST Office Visit [address] [address] Sariah Vickers ANP [address] [place] [address] 02/03/2025 11:00 AM EST Medication Management [address] [address] Yuri Pierre, MikeD [address] [place] [address] documented as of this encounter Goals Goal [...] giddiness documented in this encounter Care Teams Surgical Services Asst Relationship Specialty Start Date End Date Sariah Vickers ANP 230 [place] [address] PCP - General Family Medicine 09/23/19 Yuri Pierre, MikeD 230 [place] [address] Pharmacist Internal Medicine 05/05/24 Basilio Hall MD [address] [place] [address] [id number] Cardiology 05/17/24 Ron Preciado MD [address] [place] [address] Pulmonary Disease 05/17/24 documented as of this encounter
--- OUTSIDE RECORDS SUMMARY | 2024-12-18 05:42 | XMS_ITS | Encounter Summary ---
Author Organization [employer] Address 75 [facility] 7t [place] [address] Care Team Providers Care Jacquard Card Cutter Name Role Phone Sariah Vickers Primary Care Provider [phone] Yuri Pierre PharmD Unavailable [phone] Basilio Hall MD Unavailable [phone] Ron Preciado MD Unavailable [phone] Reason for Visit * Reason Comments Med Refill Encounter Details Date Type Department Care Team (Late st Contact Info) Description 01/06/2024 Refill [facility] MED & PEDS [address] [place] [address] Sariah Vickers ANP 230 [place] [address] Cervicalgia Social History Tobacco Use Types Packs/Day [...] 01/07/2025 9:30 AM EST Clinical Support [address] [address] Azeb Hall RN 505 [place] [address] 01/11/2025 1:00 PM EST Office Visit [address] [address] Sariah Vickers ANP [address] [place] [address] 02/03/2025 11:00 AM EST Medication Management [address] [address] Yuri Pierre, MikeD [address] [place] [address] documented as of this encounter Goals Goal [...] documented as of this encounter Care Teams Jacquard Card Cutter Relationship Specialty Start Date End Date Sariah Vickers ANP 230 [place] [address] PCP - General Family Medicine 09/23/19 Yuri Pierre, MikeD [address] [place] [address] Pharmacist Internal Medicine 05/05/24 Basilio Hall MD [address] [place] [address] Cardiology 05/17/24 Ron Preciado MD [address] [place] [address] Pulmonary Disease 05/17/24 documented as of this encounter
--- OUTSIDE RECORDS SUMMARY | 2024-12-18 05:42 | XMS_ITS | Encounter Summary ---
Author Organization [employer] Address [address] [facility] 7t [place] [address] Care Team Providers Care Self Defense Instructor Name Role Phone Sariah Vickers Primary Care Provider [phone] Yuri Pierre PharmD Unavailable [phone] Basilio Hall MD Unavailable [phone] Ron Preciado MD Unavailable [phone] Reason for Visit * Reason Comments Med Refill Encounter Details Date Type Department Care Team (Late st Contact Info) Description 12/17/2023 Refill [facility] MEDICINE 230 [place] [address] Sariah Vickers ANP 230 [place] [address] Chronic SI joint pain Social History Tobacco [...] 01/07/2025 9:30 AM EST Clinical Support [address] [address] Azeb Hall, MARTIN 505 [place] [address] 01/11/2025 1:00 PM EST Office Visit [address] [address] Sariah Vickers ANP [address] [place] [address] 02/03/2025 11:00 AM EST Medication Management [address] [address] Yuri Pierre, MikeD [address] [place] [address] documented as of this encounter Goals Goal Patient Goal Type Associated Problems Recent Progress Patient-Stated? Author Blood Pressure < 140/90 Blood Pressure 125/85(2024 12:36 PM EDT) No Aida Ragland, PharmBear Record [...] documented as of this encounter Care Teams Self Defense Instructor Relationship Specialty Start Date End Date Sariah Vickers ANP 230 [place] [address] PCP - General Family Medicine 09/23/19 Yuri Pierre, MikeD 230 [place] [address] Pharmacist Internal Medicine 05/05/24 Basilio Hall MD [address] [place] [address] Cardiology 05/17/24 Ron Preciado MD [address] [place] [address] Pulmonary Disease 05/17/24 documented as of this encounter
--- OUTSIDE RECORDS SUMMARY | 2024-12-18 05:42 | XMS_ITS | Encounter Summary ---
Author Organization [employer] Address [address] [facility] 7t [place] [address] Care Team Providers Care Reports Developer Name Role Phone Sariah Vickers Primary Care Provider Yuri Pierre PharmD Unavailable [phone] Basilio Hall MD Unavailable [phone] Ron Preciado MD Unavailable [phone] Reason for Visit * Reason Comments Med Refill Encounter Details Date Type Department Care Team (Late st Contact Info) Description 06/17/2024 Refill [facility] 230 [place] [address] Sariah Vickers ANP 230 [place], [place] [phone] Neck pain Social History Tobacco Use Types [...] 01/07/2025 9:30 AM EST Clinical Support [address] [address] Azeb Hall RN 505 [place] [address] 01/11/2025 1:00 PM EST Office Visit [address] [address] Sariah Vickers ANP [address] [place] [address] 02/03/2025 11:00 AM EST Medication Management [address] [address] Yuri Pierre, MikeD [address] [place] [address] documented as of this encounter Goals Goal [...] documented as of this encounter Care Teams Reports Developer Relationship Specialty Start Date End Date Sariah Vickers ANP 230 [place] [address] PCP - General Family Medicine 09/23/19 Yuri Pierre, MikeD [address] [place] [address] Pharmacist Internal Medicine 05/05/24 Basilio Hall MD 596 [place] [address] Cardiology 05/17/24 Ron Preciado MD [address] [place] [address] Pulmonary Disease 05/17/24 documented as of this encounter
--- OUTSIDE RECORDS SUMMARY | 2024-12-18 05:42 | XMS_ITS | Encounter Summary ---
Author Organization [employer] Address 75 [facility] 7t [place] [address] Care Team Providers Care Emergency Worker Name Role Phone Sariah Vickers Primary Care Provider Yuri Pierre PharmD Unavailable [phone] Basilio Hall MD Unavailable [phone] Ron Preciado MD Unavailable [phone] Encounter Details Date Type Department Care Team (Late st Contact Info) Description 10/20/2024 Results Follow-Up [facility] MEDICINE 230 [place] [address] Sariah Vickers ANP 230 [place] [address] Prothrombin Time-INR, C-reactive Protein, Amylase, Additional followed-up [...] Description 01/07/2025 9:30 AM EST Clinical Support [address] [address] Azeb Hall RN 505 [place] [address] 01/11/2025 1:00 PM EST Office Visit [address] [address] Sariah Vickers ANP [address] [place] [address] 02/03/2025 11:00 AM EST Medication Management [address] [address] Yuri Pierre PharmD 230 [place] [address] documented as of this encounter Goals Goal Patient Goal Type Associated Problems Recent Progress Patient-Stated? Author Blood Pressure < 140/90 Blood Pressure 125/85(2024 12:36 PM EDT) No Piers-Gambl eVeronicasa, PharmD Record [...] documented as of this encounter Care Teams Emergency Worker Relationship Specialty Start Date End Date Sariah Vickers ANP 230 [place] [address] PCP - General Family Medicine 09/23/19 Yuri Pierre, PharmD 230 [place] [address] Pharmacist Internal Medicine 05/05/24 Basilio Hall MD 596 [place] [address] Cardiology 05/17/24 Ron Preciado MD [address] [place] [address] Pulmonary Disease 05/17/24 documented as of this encounter
--- OUTSIDE RECORDS SUMMARY | 2024-12-18 05:42 | XMS_ITS | Encounter Summary ---
Author Organization [employer] Address 75 [facility] 7t [place] [address] Care Team Providers Care Active Directory Administrator Name Role Phone Sariah Vickers Primary Care Provider [phone] Yuri Pierre PharmD Unavailable [phone] Basilio Hall MD Unavailable [phone] Ron Preciado MD Unavailable [phone] Reason for Visit * Reason Onset Date Comments Med Refill 01/09/2024 Encounter Details Date Type Department Care Team (Late st Contact Info) Description 01/09/2024 Telephone [facility] MEDICINE 230 [place] [address] Sariah Vickers ANP 230 [place], [place] [phone] Med Refill Social History Tobacco Use Types [...] 01/07/2025 9:30 AM EST Clinical Support [address] [address] Azeb Hall, MARTIN 505 [place] [address] 01/11/2025 1:00 PM EST Office Visit [address] [address] Sariah Vickers ANP [address] [place] [address] 02/03/2025 11:00 AM EST Medication Management [address] [address] Yuri Pierre, MikeD [address] [place] [address] documented as of this encounter Goals Goal [...] documented as of this encounter Care Teams Active Directory Administrator Relationship Specialty Start Date End Date Sariah Vickers ANP 230 [place] [address] PCP - General Family Medicine 09/23/19 Yuri Pierre, MikeD [address] [place] [address] Pharmacist Internal Medicine 05/05/24 Basilio Hall MD [address] [place] [address] Cardiology 05/17/24 Ron Preciado MD [address] [place] [address] Pulmonary Disease 05/17/24 documented as of this encounter
--- OUTSIDE RECORDS SUMMARY | 2024-12-18 05:42 | XMS_ITS | Encounter Summary ---
Author Organization [employer] Address 75 [facility] 7t [place] [address] Care Team Providers Care Route Sales Specialist Name Role Phone Sariah Vickers Primary Care Provider [phone] Yuri Pierre PharmD Unavailable [phone] Basilio Hall MD Unavailable [phone] Ron Preciado MD Unavailable [phone] Reason for Visit * Reason Comments Med Refill Patient walked [facility] hasn't finished her Medbox due to missing refill for medication Gabapetin . Encounter Details Date Type Department Care Team (Late st Contact Info) Description 10/03/2023 Refill [facility] 230 [place], [place] [phone] Sariah Vickers ANP 230 [place], [place] [phone] Chronic SI joint pain Social History Tobacco [...] the past 12 months, has t he [employer] oil or water company threatened to [...] AM EST Clinical Support [address] [address] Azeb Hall RN 505 [place] [address] 01/11/2025 1:00 PM EST Office Visit [address] [address] Sariah Vickers ANP [address] [place] [address] 02/03/2025 11:00 AM EST Medication Management [address] [address] Yuri Pierre, PharmD 230 [place] [address] documented as of this encounter Goals Goal [...] documented as of this encounter Care Teams Route Sales Specialist Relationship Specialty Start Date End Date Sariah Vickers ANP 230 [place] [address] PCP - General Family Medicine 09/23/19 Yuri Pierre, PharmD 230 [place] [address] Pharmacist Internal Medicine 05/05/24 Basilio Hall MD 596 [place] [address] Cardiology 05/17/24 Ron Preciado MD [address] [place] [address] Pulmonary Disease 05/17/24 documented as of this encounter
--- OUTSIDE RECORDS SUMMARY | 2024-12-18 05:42 | XMS_ITS | Encounter Summary ---
Author Organization [employer] Address 75 [facility] 7t [place] [address] Care Team Providers Care Printed Circuit Board Layout Designer Name Role Phone Sariah Vickers Primary Care Provider [phone] Yuri Pierre PharmD Unavailable [phone] Basilio Hall MD Unavailable [phone] Ron Preciado MD Unavailable [phone] Reason for Visit * Reason Comments Med Refill Encounter Details Date Type Department Care Team (Late st Contact Info) Description 01/04/2024 Refill [facility] MED & PEDS [address] [place] [address] Sariah Vickers ANP 230 [place] [address] Cervicalgia Social History Tobacco Use Types Packs/Day [...] 01/07/2025 9:30 AM EST Clinical Support [address] [address] Azeb Hall RN 505 [place] [address] 01/11/2025 1:00 PM EST Office Visit [address] [address] Sariah Vickers ANP [address] [place] [address] 02/03/2025 11:00 AM EST Medication Management [address] [address] Yuri Pierre, MikeD [address] [place] [address] documented as of this encounter Goals Goal [...] documented as of this encounter Care Teams Printed Circuit Board Layout Designer Relationship Specialty Start Date End Date Sariah Vickers ANP 230 [place] [address] PCP - General Family Medicine 09/23/19 Yuri Pierre, MikeD [address] [place] [address] Pharmacist Internal Medicine 05/05/24 Basilio Hall MD [address] [place] [address] Cardiology 05/17/24 Ron Preciado MD [address] [place] [address] Pulmonary Disease 05/17/24 documented as of this encounter
--- OUTSIDE RECORDS SUMMARY | 2024-12-18 05:42 | XMS_ITS | Encounter Summary ---
Author Organization [employer] Address 75 [facility] 7t [place] [address] Care Team Providers Care Automobile Damage Appraiser Name Role Phone Sariah Vickers Primary Care Provider Yuri Pierre PharmD Unavailable [phone] Basilio Hall MD Unavailable [phone] Ron Preciado MD Unavailable [phone] Reason for Visit * Reason Comments Med Refill Encounter Details Date Type Department Care Team (Late st Contact Info) Description 11/14/[address] [facility] MEDICINE 230 [place] [address] Sariah Vickers ANP 230 [place] [address] Neck pain Social History Tobacco Use Types [...] 01/07/2025 9:30 AM EST Clinical Support [address] [address] Azeb Hall, MARTIN 505 [place] [address] 01/11/2025 1:00 PM EST Office Visit [address] [address] Sariah Vickers ANP [address] [place] [address] 02/03/2025 11:00 AM EST Medication Management [address] [address] Yuri Pierre, MikeD [address] [place] [address] documented as of this encounter Goals Goal [...] documented as of this encounter Care Teams Automobile Damage Appraiser Relationship Specialty Start Date End Date Sariah Vickers ANP 230 [place] [address] PCP - General Family Medicine 09/23/19 Yuri Pierre, MikeD [address] [place] [address] Pharmacist Internal Medicine 05/05/24 Basilio Hall MD 596 [place] [address] Cardiology 05/17/24 Ron Preciado MD [address] [place] [address] Pulmonary Disease 05/17/24 documented as of this encounter
--- OUTSIDE RECORDS SUMMARY | 2024-12-18 05:42 | XMS_ITS | Encounter Summary ---
Author Organization [employer] Address 75 [facility] 7t [place] [address] Care Team Providers Care Sign Painter Helper Name Role Phone Sariah Vickers Primary Care Provider [phone] Yuri Pierre PharmD Unavailable [phone] Basilio Hall MD Unavailable [phone] Ron Preciado MD Unavailable [phone] Reason for Visit * Reason Comments Med Refill Pt wants to know if she can keep taking prednis Encounter Details Date Type Department Care Team (Late st Contact Info) Description 06/26/2024 Refill [facility]S [address] [place] [address] Sariah Vickers ANP 230 [place] [address] Cervicalgia Social History Tobacco Use Types Packs/Day [...] Description 01/07/2025 9:30 AM EST Clinical Support [facility] [address] [place] [address] Azeb Hall, MARTIN 505 [place] [address] 01/11/2025 1:00 PM EST Office Visit [facility] [address] [place] [address] Sariah Vickers ANP [address] [place] [address] 02/03/2025 11:00 AM EST Medication Management [facility] [address] [place] [address] Yuri Pierre, MikeD [address] [place] [address] documented as of this encounter Goals Goal [...] documented as of this encounter Care Teams Sign Painter Helper Relationship Specialty Start Date End Date Sariah Vickers ANP 230 [place] [address] PCP - General Family Medicine 09/23/19 Yuri Pierre, MikeD 230 [place] [address] Pharmacist Internal Medicine 05/05/24 Basilio Hall MD [address] [place] [address] Cardiology 05/17/24 Ron Preciado MD [address] [place] [address] Pulmonary Disease 05/17/24 documented as of this encounter
--- OUTSIDE RECORDS SUMMARY | 2024-12-18 05:42 | XMS_ITS | Encounter Summary ---
Author Organization [employer] Address [address] [facility] [address] 7t [place] [address] Care Team Providers Care Radio Artist Name Role Phone Sariah Vickers KAYLEE Primary Care Provider [phone] Yuri Pierre PharmD Unavailable [phone] Basilio Hall MD Unavailable [phone] Ron Preciado MD Unavailable [phone] Encounter Details Date Type Department Care Team (Latest Contact Info) Description 12/16/2024 Travel Social History Tobacco Use Types Packs/Day [...] 01/07/2025 9:30 AM EST Clinical Support [address] [address] Azeb Hall RN 505 [place] [address] 01/11/2025 1:00 PM EST Office Visit [address] [address] Sariah Vickers ANP [address] [place] [address] 02/03/2025 11:00 AM EST Medication Management [address] [address] Yuri Pierre, PharmD [address] [place] [address] documented as of this encounter Goals Goal Patient Goal Type Associated Problems Recent Progress Patient-Stated? Author Blood Pressure < 140/90 Blood Pressure 125/85(2024 12:36 PM EDT) No Phanis-Aida Medina, PharmD Record [...] as of this encounter Care Teams Radio Artist Relationship Specialty Start Date End Date Sariah Vickers ANP 230 [place] [address] PCP - General Family Medicine 09/23/19 Yuri Pierre, MikeD 230 [place] [address] Pharmacist Internal Medicine 05/05/24 Basilio Hall MD [address] [place] [address] Cardiology 05/17/24 Ron Preciado MD [address] [place] [address] Pulmonary Disease 05/17/24 documented as of this encounter
--- OUTSIDE RECORDS SUMMARY | 2024-12-18 05:42 | XMS_ITS | Encounter Summary ---
Author Organization [employer] Address 75 [facility] 7t [place] [address] Care Team Providers Care Snailer Name Role Phone Sariah Vickers Primary Care Provider [phone] Yuri Pierre PharmD Unavailable [phone] Basilio Hall MD Unavailable [phone] Ron Preciado MD Unavailable [phone] Reason for Visit * Reason Comments Med Refill Encounter Details Date Type Department Care Team (Late st Contact Info) Description 01/06/2024 Refill [facility] [address] [place] [address] Sariah Vickers ANP 230 [place] [address] Cervicalgia Social History Tobacco Use Types Packs/Day [...] 01/07/2025 9:30 AM EST Clinical Support [address] [address] Azeb Hall RN 505 [place] [address] 01/11/2025 1:00 PM EST Office Visit [address] [address] Sariah Vickers ANP [address] [place] [address] 02/03/2025 11:00 AM EST Medication Management [address] [address] Yuri Pierre, MikeD [address] [place] [address] documented as of this encounter Goals Goal [...] documented as of this encounter Care Teams Snailer Relationship Specialty Start Date End Date Sariah Vickers ANP 230 [place] [address] PCP - General Family Medicine 09/23/19 Yuri Pierre, MikeD [address] [place] [address] Pharmacist Internal Medicine 05/05/24 Basilio Hall MD [address] [place] [address] Cardiology 05/17/24 Ron Preciado MD [address] [place] [address] Pulmonary Disease 05/17/24 documented as of this encounter
--- OUTSIDE RECORDS SUMMARY | 2024-12-18 05:42 | XMS_ITS | Encounter Summary ---
Author Organization [employer] Address 75 [facility] 7t [place] [address] Care Team Providers Care Mastic Man Name Role Phone Sariah Vickers Primary Care Provider [phone] Yuri Pierre PharmD Unavailable [phone] Basilio Hall MD Unavailable [phone] Ron Preciado MD Unavailable [phone] Reason for Visit * Reason Comments Med Refill Encounter Details Date Type Department Care Team (Late st Contact Info) Description 10/03/2023 Refill [facility] 230 [place] [address] Sariah Vickers ANP 230 [place], [place] [phone] Chronic SI joint pain Social History Tobacco [...] Description 01/07/2025 9:30 AM EST Clinical Support [address] [address] Azeb Hall, MARTIN 505 [place] [address] 01/11/2025 1:00 PM EST Office Visit [address] [address] Sariah Vickers ANP [address] [place] [address] 02/03/2025 11:00 AM EST Medication Management [address] [address] Yuri Pierre, MikeD [address] [place] [address] documented as of this encounter Goals Goal [...] documented as of this encounter Care Teams Mastic Man Relationship Specialty Start Date End Date Sariah Vickers ANP 230 [place] [address] PCP - General Family Medicine 09/23/19 Yuri iPerre, MikeD [address] [place] [address] Pharmacist Internal Medicine 05/05/24 Basilio Hall MD [address] [place] [address] Cardiology 05/17/24 Ron Preciado MD [address] [place] [address] Pulmonary Disease 05/17/24 documented as of this encounter
--- OUTSIDE RECORDS SUMMARY | 2024-12-18 05:43 | XMS_ITS | Encounter Summary ---
Author Organization [employer] Address 75 [facility] 7t [place] [address] Care Team Providers Care Insole Buffer Name Role Phone Sariah Vickers Primary Care Provider [phone] Yuri Pierre PharmD Unavailable [phone] Basilio Hall MD Unavailable [phone] Ron Preciado MD Unavailable [phone] Reason for Visit * Reason Onset Date Comments Med Refill 03/04/2023 Encounter Details Date Type Department Care Team (Late st Contact Info) Description 03/04/2023 Telephone [facility] 230 [place], [place] [phone] Sariah Vickers ANP 230 [place], [place] [phone] Med Refill Social History Tobacco Use Types [...] 50 MG tablet To be sent to: [facility] - [place], [place] - [address] [place] [address] documented in this encounter Plan of Treatment Upcoming Encounters Date Type Department Care Team (Late st Contact Info) Description 01/07/2025 9:30 AM EST Clinical Support [address] [address] Azeb Hall RN 505 [place] [address] 01/11/2025 1:00 PM EST Office Visit [address] [address] Sariah Vickers, KAYLEE [address] [place] [address] 02/03/2025 11:00 AM EST Medication Management [address] [address] Yuri Pierre, PharmD [address] [place] [address] documented as of this encounter Goals Goal [...] filedocumented in this encounter Care Teams Insole Buffer Relationship Specialty Start Date End Date Sariah Vickers ANP 230 [place] [address] PCP - General Family Medicine 09/23/19 Yuri Pierre PharmD 230 [place] [address] Pharmacist Internal Medicine 05/05/24 Basilio Hall MD 596 [place] [address] Cardiology 05/17/24 Ron Preciado MD [address] [place] [address] Pulmonary Disease 05/17/24 documented as of this encounter
--- OUTSIDE RECORDS SUMMARY | 2024-12-18 05:43 | XMS_ITS | Encounter Summary ---
Author Organization [employer] Address 75 [facility] 7t [place] [address] Care Team Providers Care Assistant County Engineer Name Role Phone Sariah Vickers Primary Care Provider [phone] Yuri Pierre PharmD Unavailable [phone] Basilio Hall MD Unavailable [phone] Ron Preciado MD Unavailable [phone] Encounter Details Date Type Department Care Team (Late st Contact Info) Description 10/26/2024 Results Follow-Up [facility] 230 [place] [address] Sariah Vickers ANP 230 [place] [address] Thyroid Peroxidase Antibodies, Cardiolipin Antibodies (IgA,IgG,IgM) Social [...] 01/07/2025 9:30 AM EST Clinical Support [address] [address] Azeb Hall RN 505 [place] [address] 01/11/2025 1:00 PM EST Office Visit [address] [address] Sariah Vickers ANP [address] [place] [address] 02/03/2025 11:00 AM EST Medication Management [address] [address] Yuri Pierre PharmD 230 [place] [address] documented as of this encounter Goals Goal [...] as of this encounter Care Teams Assistant County Engineer Relationship Specialty Start Date End Date Sariah Vickers ANP 230 [place] [address] PCP - General Family Medicine 09/23/19 Yuri Pierre, PharmD 230 [place] [address] Pharmacist Internal Medicine 05/05/24 Basilio Hall MD 596 [place] [address] Cardiology 05/17/24 Ron Preciado MD [address] [place] [address] Pulmonary Disease 05/17/24 documented as of this encounter
--- OUTSIDE RECORDS SUMMARY | 2024-12-18 05:43 | XMS_ITS | Encounter Summary ---
Author Organization [employer] Address 75 [facility] 7t [place] [address] Care Team Providers Care County Historian Name Role Phone Sariah Vickers KAYLEE Primary Care Provider [phone] Yuri Pierre PharmD Unavailable [phone] Basilio Hall MD Unavailable [phone] Ron Preciado MD Unavailable [phone] Reason for Visit * Reason Comments Med Refill Encounter Details Date Type Department Care Team (Late st Contact Info) Description 03/04/2023 Refill [facility] 230 [place] [address] Brittney Nava MD 230 [place] [address] Social History Tobacco Use Types Packs/Day Years [...] 01/07/2025 9:30 AM EST Clinical Support [address] [address] Azeb Hall, MARTIN 505 [place] [address] 01/11/2025 1:00 PM EST Office Visit [address] [address] Sariah Vickers ANP [address] [place] [address] 02/03/2025 11:00 AM EST Medication Management [address] [address] Yuri Pierre, MikeD [address] [place] [address] documented as of this encounter Goals Goal [...] on filedocumented in this encounter Care Teams County Historian Relationship Specialty Start Date End Date Sariah Vickers ANP 230 [place] [address] PCP - General Family Medicine 09/23/19 Yuri Pierre, MikeD 230 [place] [address] Pharmacist Internal Medicine 05/05/24 Basilio Hall MD [address] [place] [address] Cardiology 05/17/24 Ron Preciado MD [address] [place] [address] Pulmonary Disease 05/17/24 documented as of this encounter
--- OUTSIDE RECORDS SUMMARY | 2024-12-18 05:43 | XMS_ITS | Encounter Summary ---
Author Organization [employer] Address 75 [facility] 7t [place] [address] Care Team Providers Care Configuration Management Analyst Name Role Phone Sariah Vickers Primary Care Provider Yuri Pierre PharmD Unavailable [phone] Basilio Hall MD Unavailable [phone] Ron Preciado MD Unavailable [phone] Reason for Visit * Reason Onset Date Comments Nurse Triage 01/14/2023 Encounter Details Date Type Department Care Team (Late st Contact Info) Description 01/14/2023 Telephone [facility] 230 [place] [address] Sariah Vickers ANP 230 [place] [address] Nurse Triage Social History Tobacco Use Types [...] 01/14/2023 9:26 AM EST Called pt. Via [employer] diplomatic interpreter [id number] Kelly. Pt. States that she has been having a fire feeling in her legs. Its like A burning that goes down her legs . Pt. Unsure if it because of her Diabetes. Pt. Went to [facility] for pain on her [...] at 10am. Will send note to clinical plant health care technician to have note put in chart . [...] Severe pain now, pt was seen at [facility]13 for pain in leg. Pt is still symptomatic The caller accepted this outcome Please contact pt at [phone] (hourly sign language interpreter needed) documented in this encounter Plan of Treatment Upcoming Encounters Date Type Department Care Team (Late st Contact Info) Description 01/07/2025 9:30 AM EST Clinical Support [address] [address] Azeb Hall RN 505 [place] [address] 01/11/2025 1:00 PM EST Office Visit [address] [address] Sariah Vickers ANP [address] [place] [address] 02/03/2025 11:00 AM EST Medication Management [address] [address] Yuri Pierre, PharmD [address] [place] [address] documented as of this encounter Goals Goal Patient Goal Type Associated Problems Recent Progress Patient-Stated? Author Blood Pressure < 140/90 Blood Pressure 125/85(2024 12:36 PM EDT) No Piers-Gambl e, Aida, PharmD Record Your Blood Sugar As Directed General No Piers-Gambl e, Aida, PharmD Hemoglobin A1c < 7 Result Component 6.6( 1:54 PM EDT) No Piers-Gambl e, Aida, PharmD documented as of this encounter Visit Diagnoses Not on filedocumented in this encounter Care Teams Configuration Management Analyst Relationship Specialty Start Date End Date Sariah Vickers ANP [address] [place] [address] PCP - General Family Medicine 09/23/19 Yuri Pierre, MikeD 230 [place], [place] [phone] Pharmacist Internal Medicine 05/05/24 Basilio Hall MD 596 [place], [place] [phone] Cardiology 05/17/24 Ron Preciado MD [address] [place] [address] [id number] Pulmonary Disease 05/17/24 documented as of this encounter
--- OUTSIDE RECORDS SUMMARY | 2024-12-18 05:43 | XMS_ITS | Encounter Summary ---
Author Organization [employer] Address 75 [facility] 7t [place] [address] Care Team Providers Care Flow Worker Name Role Phone Sariah Vickers Primary Care Provider [phone] Yuri Pierre PharmD Unavailable [phone] Basilio Hall MD Unavailable [phone] Ron Preciado MD Unavailable [phone] Reason for Visit * Reason Comments Med Refill Encounter Details Date Type Department Care Team (Late st Contact Info) Description 07/10/2023 Refill [facility] 230 [place] [address] Sariah Vickers ANP 230 [place], [place] [phone] Chronic SI joint pain Social History Tobacco [...] 01/07/2025 9:30 AM EST Clinical Support [address] [address] Azeb Hall, MARTIN 505 [place] [address] 01/11/2025 1:00 PM EST Office Visit [address] [address] Sariah Vickers ANP [address] [place] [address] 02/03/2025 11:00 AM EST Medication Management [address] [address] Yuri Pierre, MikeD [address] [place] [address] documented as of this encounter Goals Goal [...] documented as of this encounter Care Teams Flow Worker Relationship Specialty Start Date End Date Sariah Vickers ANP 230 [place] [address] PCP - General Family Medicine 09/23/19 Yuri Pierre, MikeD [address] [place] [address] Pharmacist Internal Medicine 05/05/24 Basilio Hall MD [address] [place] [address] Cardiology 05/17/24 Ron Preciado MD [address] [place] [address] Pulmonary Disease 05/17/24 documented as of this encounter
--- OUTSIDE RECORDS SUMMARY | 2024-12-18 05:43 | XMS_ITS | Encounter Summary ---
Author Organization [employer] Address 75 [facility] 7t [place] [address] Care Team Providers Care R Developer Name Role Phone Sariah Vickers KAYLEE Primary Care Provider [phone] Yuri Pierre PharmD Unavailable [phone] Basilio Hall MD Unavailable [phone] Ron Preciado MD Unavailable [phone] Reason for Visit * Reason Comments Med Refill Encounter Details Date Type Department Care Team (Late st Contact Info) Description 11/11/2024 Refill [facility] 230 [place] [address] Yogesh Gomez, JOHN 230 [place] [address] Social History Tobacco Use Types Packs/Day Years [...] 01/07/2025 9:30 AM EST Clinical Support [address] [address] Azeb Hall, MARTIN 505 [place] [address] 01/11/2025 1:00 PM EST Office Visit [address] [address] Sariah Vickers ANP [address] [place] [address] 02/03/2025 11:00 AM EST Medication Management [address] [address] Yuri Pierre, PharmD 230 [place] [address] documented as of this encounter Goals Goal [...] documented as of this encounter Care Teams R Developer Relationship Specialty Start Date End Date Sariah Vickers ANP 230 [place] [address] PCP - General Family Medicine 09/23/19 Yuri Pierre PharmD 230 [place] [address] Pharmacist Internal Medicine 05/05/24 Basilio Hall MD 596 [place] [address] Cardiology 05/17/24 Ron Preciado MD [address] [place] [address] Pulmonary Disease 05/17/24 documented as of this encounter
--- OUTSIDE RECORDS SUMMARY | 2024-12-18 05:43 | XMS_ITS | Encounter Summary ---
Author Organization [employer] Address 75 [facility] 7t [place] [address] Care Team Providers Care Pipefitter Welder Name Role Phone Sraiah Vickers Primary Care Provider [phone] Yuri Pierre PharmD Unavailable [phone] Basilio Hall MD Unavailable [phone] Ron Preciado MD Unavailable [phone] Reason for Visit * Reason Comments Med Refill Encounter Details Date Type Department Care Team (Late st Contact Info) Description 12/27/[address] [facility] 230 [place] [address] Sariah Vickers ANP 230 [place] [address] Neck pain Social History Tobacco Use Types [...] 01/07/2025 9:30 AM EST Clinical Support [address] [address] Azeb Hall RN 505 [place] [address] 01/11/2025 1:00 PM EST Office Visit [address] [address] Sariah Vickers ANP [address] [place] [address] 02/03/2025 11:00 AM EST Medication Management [address] [address] Yuri Pierre, MikeD [address] [place] [address] documented as of this encounter Goals Goal [...] Cervicalgia documented in this encounter Care Teams Pipefitter Welder Relationship Specialty Start Date End Date Sariah Vickers ANP 230 [place] [address] PCP - General Family Medicine 09/23/19 Yuri Pierre, MikeD 230 [place], [place] [phone] Pharmacist Internal Medicine 05/05/24 Basilio Hall MD 596 [place], [place] [phone] Cardiology 05/17/24 Ron Preciado MD [address] [place] [address] Pulmonary Disease 05/17/24 documented as of this encounter
--- OUTSIDE RECORDS SUMMARY | 2024-12-18 05:43 | XMS_ITS | Encounter Summary ---
Author Organization [employer] Address 75 [facility] 7t [place] [address] Care Team Providers Care Hearing Aid Dispenser Name Role Phone Sariah Vickers Primary Care Provider [phone] Yuri Pierre PharmD Unavailable [phone] Basilio Hall MD Unavailable [phone] Ron Preciado MD Unavailable [phone] Reason for Visit * Reason Comments Med Refill Encounter Details Date Type Department Care Team (Late st Contact Info) Description 03/07/2023 Refill [facility] 230 [place] [address] Sariah Vickers ANP 230 [place] [address] Vertigo Social History Tobacco Use Types Packs/Day [...] 01/07/2025 9:30 AM EST Clinical Support [address] [address] Azeb Hall RN 505 [place] [address] 01/11/2025 1:00 PM EST Office Visit [address] [address] Sariah Vickers ANP [address] [place] [address] 02/03/2025 11:00 AM EST Medication Management [address] [address] Yuri Pierre, MikeD [address] [place] [address] documented as of this encounter Goals Goal [...] giddiness documented in this encounter Care Teams Hearing Aid Dispenser Relationship Specialty Start Date End Date Sariah Vickers ANP 230 [place] [address] PCP - General Family Medicine 09/23/19 Yuri Pierre, MikeD 230 [place] [address] Pharmacist Internal Medicine 05/05/24 Basilio Hall MD [address] [place] [address] [phone] Cardiology 05/17/24 Ron Preciado MD [address] [place] [address] Pulmonary Disease 05/17/24 documented as of this encounter
--- OUTSIDE RECORDS SUMMARY | 2024-12-18 05:43 | XMS_ITS | Encounter Summary ---
Author Organization [employer] Address 75 [facility] 7t [place] [address] Care Team Providers Care Manual Tester Name Role Phone Sariah Vickers Primary Care Provider [phone] Yuri Pierre PharmD Unavailable [phone] Basilio Hall MD Unavailable [phone] Ron Preciado MD Unavailable [phone] Reason for Visit * Reason Comments Med Refill Encounter Details Date Type Department Care Team (Late st Contact Info) Description 07/10/2022 Refill [facility] 230 [place] [address] Sariah Vickers ANP 230 [place] [address] Vertigo Social History Tobacco Use Types Packs/Day [...] 01/07/2025 9:30 AM EST Clinical Support [address] [address] Azeb Hall, RN 505 [place] [address] 01/11/2025 1:00 PM EST Office Visit [address] [address] Sariah Vickers ANP [address] [place] [address] 02/03/2025 11:00 AM EST Medication Management [address] [address] Yuri Pierre, PharmD [address] [place] [address] documented as of this encounter Visit Diagnoses Diagnosis Vertigo Dizziness and giddiness documented in this encounter Care Teams Manual Tester Relationship Specialty Start Date End Date Sariah Vickers ANP [address] [place] [address] PCP - General Family Medicine 09/23/19 Yuri Pierre, PharmD [address] [place] [address] Pharmacist Internal Medicine 05/05/24 Basilio Hall MD 596 [place] [address] Cardiology 05/17/24 Ron Preciado MD [address] [place] [address] Pulmonary Disease 05/17/24 documented as of this encounter
--- OUTSIDE RECORDS SUMMARY | 2024-12-18 05:43 | XMS_ITS | Encounter Summary ---
Author Organization [employer] Address 75 [facility] 7t [place] [address] Care Team Providers Care Otr Refrigerated Cdl Truck Driver Name Role Phone Sariah Vickers Primary Care Provider [phone] Yuri Pierre PharmD Unavailable [phone] Basilio Hall MD Unavailable [phone] Ron Preciado MD Unavailable [phone] Reason for Visit * Reason Comments Med Refill Encounter Details Date Type Department Care Team (Late st Contact Info) Description 12/13/[address] [facility] [address] [place] [address] Sariah Vickers ANP 230 [place] [address] Neck pain; Cervicalgia Social History Tobacco Use [...] 01/07/2025 9:30 AM EST Clinical Support [address] [address] Azeb Hall RN 505 [place] [address] 01/11/2025 1:00 PM EST Office Visit [address] [address] Sariah Vickers, KAYLEE [address] [place] [address] 02/03/2025 11:00 AM EST Medication Management [address] [address] Yuri Pierre, PharmD [address] [place] [address] documented as of this encounter Goals Goal [...] documented as of this encounter Care Teams Otr Refrigerated Cdl Truck Driver Relationship Specialty Start Date End Date Sariah Vickers, KAYLEE 230 [place] [address] PCP - General Family Medicine 09/23/19 Yuri Pierre PharmD 230 [place] [address] Pharmacist Internal Medicine 05/05/24 Basilio Hall MD 596 [place] [address] Cardiology 05/17/24 Ron Preciado MD [address] [place] [address] Pulmonary Disease 05/17/24 documented as of this encounter
--- OUTSIDE RECORDS SUMMARY | 2024-12-18 05:43 | XMS_ITS | Encounter Summary ---
Author Organization [employer] Address 75 [facility] 7t [place] [address] Care Team Providers Care Sem Manager Name Role Phone Sariah Vickers Primary Care Provider [phone] Yuri Pierre PharmD Unavailable [phone] Basilio Hall MD Unavailable [phone] Ron Preciado MD Unavailable [phone] Reason for Visit * Reason Comments Med Refill Encounter Details Date Type Department Care Team (Late st Contact Info) Description 02/28/2023 Refill [facility] 230 [place] [address] Sariah Vickers ANP 230 [place] [address] Cervicalgia Social History Tobacco Use Types Packs/Day [...] Description 01/07/2025 9:30 AM EST Clinical Support [address] [address] Azeb Hall RN 505 [place] [address] 01/11/2025 1:00 PM EST Office Visit [address] [address] Sariah Vickers ANP [address] [place] [address] 02/03/2025 11:00 AM EST Medication Management [address] [address] Yuri Pierre, MikeD [address] [place] [address] documented as of this encounter Goals Goal [...] Cervicalgia documented in this encounter Care Teams Sem Manager Relationship Specialty Start Date End Date Sariah Vickers ANP 230 [place] [address] PCP - General Family Medicine 09/23/19 Yuri Pierre, MikeD 230 [place], [place] [phone] Pharmacist Internal Medicine 05/05/24 Basilio Hall MD 596 [place], [place] [phone] Cardiology 05/17/24 Ron Preciado MD [address] [place] [address] Pulmonary Disease 05/17/24 documented as of this encounter
--- OUTSIDE RECORDS SUMMARY | 2024-12-18 05:43 | XMS_ITS | Encounter Summary ---
Author Organization [employer] Address 75 [facility] 7t [place] [address] Care Team Providers Care Coater Operator Name Role Phone Sariah Vickers Primary Care Provider [phone] Yuri Pierre PharmD Unavailable [phone] Basilio Hall MD Unavailable [phone] Ron Preciado MD Unavailable [phone] Reason for Visit * Reason Comments Med Refill Encounter Details Date Type Department Care Team (Late st Contact Info) Description 07/17/2022 Refill [facility] 230 [place] [address] Sariah Vickers ANP 230 [place] [address] Neck pain Social History Tobacco Use Types [...] 01/07/2025 9:30 AM EST Clinical Support [address] [address] Azeb Hall, RN 505 [place] [address] 01/11/2025 1:00 PM EST Office Visit [address] [address] Sariah Vickers ANP [address] [place] [address] 02/03/2025 11:00 AM EST Medication Management [address] [address] Yuri Pierre, Dileep [address] [place] [address] documented as of this encounter Visit Diagnoses Diagnosis Neck pain Cervicalgia documented in this encounter Care Teams Coater Operator Relationship Specialty Start Date End Date Sariah Vickers ANP [address] [place] [address] PCP - General Family Medicine 09/23/19 Yuri Pierre, PharmD [address] [place] [address] Pharmacist Internal Medicine 05/05/24 Basilio Hall MD 596 [place] [address] Cardiology 05/17/24 Ron Preciado MD [address] [place] [address] Pulmonary Disease 05/17/24 documented as of this encounter
--- OUTSIDE RECORDS SUMMARY | 2024-12-18 05:43 | XMS_ITS | Encounter Summary ---
Author Organization [employer] Address 75 [facility] 7t [place] [address] Care Team Providers Care Crotch Piece Baster Name Role Phone Sariah Vickers Primary Care Provider [phone] Yuri Pierre PharmD Unavailable [phone] Basilio Hall MD Unavailable [phone] Ron Preciado MD Unavailable [phone] Reason for Visit * Reason Onset Date Comments Referral 05/17/2022 Encounter Details Date Type Department Care Team (Late st Contact Info) Description 05/17/2022 Telephone [facility] MEDICINE [address] [place] [address] Sariah Vickers ANP 230 [place] [address] Referral Social History Tobacco Use Types Packs/Day [...] guide to vertigo. Please contact pt at [phone] documented in this encounter Plan of Treatment Upcoming Encounters Date Type Department Care Team (Late st Contact Info) Description 01/07/2025 9:30 AM EST Clinical Support [address] [address] Azeb Hall RN 505 [place] [address] 01/11/2025 1:00 PM EST Office Visit [address] [address] Sariah Vickers ANP [address] [place] [address] 02/03/2025 11:00 AM EST Medication Management [address] [address] Yuri Pierre, PharmD [address] [place] [address] documented as of this encounter Visit Diagnoses Not on filedocumented in this encounter Care Teams Crotch Piece Baster Relationship Specialty Start Date End Date Sariah Vickers ANP [address] [place] [address] PCP - General Family Medicine 09/23/19 Yuri Pierre, PharmD [address] [place] [address] Pharmacist Internal Medicine 05/05/24 Basilio Hall MD [address] [place] [address] Cardiology 05/17/24 Ron Preciado MD [address] [place] [address] Pulmonary Disease 05/17/24 documented as of this encounter
--- OUTSIDE RECORDS SUMMARY | 2024-12-18 05:43 | XMS_ITS | Encounter Summary ---
Author Organization [employer] Address 75 [facility] 7t [place] [address] Care Team Providers Care Garland Maker Name Role Phone Sariah Vickers Primary Care Provider [phone] Yuri Pierre PharmD Unavailable [phone] Basilio Hall MD Unavailable [phone] Ron Preciado MD Unavailable [phone] Reason for Visit * Reason Onset Date Comments Med Refill 12/15/2024 Encounter Details Date Type Department Care Team (Late st Contact Info) Description 12/15/2024 Telephone [facility] CHC MED & PEDS [address] [place] [address] Sariah Vickers ANP 230 [place] [address] Med Refill Social History Tobacco Use Types [...] 01/07/2025 9:30 AM EST Clinical Support [address] [address] Azeb Hall RN 505 [place] [address] 01/11/2025 1:00 PM EST Office Visit [address] [address] Sariah Vickers ANP [address] [place] [address] 02/03/2025 11:00 AM EST Medication Management [address] [address] uYri Pierre, PharmD 230 [place] [address] documented as of this encounter Goals Goal Patient Goal Type Associated Problems Recent Progress Patient-Stated? Author Blood Pressure < 140/90 Blood Pressure 125/85(2024 12:36 PM EDT) No Aida Ragland PharmD Record Your Blood Sugar As Directed General No Phanis-Gambl Veronica urbinasa PharmD Hemoglobin A1c < 7 Result Component 6.6( 1:54 PM EDT) No PhanisAida Cheng PharmD documented as of this encounter Visit Diagnoses Not on filedocumented in this encounter Additional Health Concerns Assessment Noted Time PHQ-9 Depression Total Score: 11 025 5:30 PM EDT documented as of this encounter Care Teams Garland Maker Relationship Specialty Start Date End Date Sariah Vickers ANP 230 [place] [address] PCP - General Family Medicine 09/23/19 Yuri Pierre, PharmD 230 [place] [address] Pharmacist Internal Medicine 05/05/24 Basilio Hall MD [address] [place] [address] Cardiology 05/17/24 Ron Preciado MD [address] [place] [address] Pulmonary Disease 05/17/24 documented as of this encounter
--- OUTSIDE RECORDS SUMMARY | 2024-12-18 05:43 | XMS_ITS | Encounter Summary ---
Author Organization [employer] Address 75 [facility] 7t [place] [address] Care Team Providers Care Electromedical Equipment Repairer Name Role Phone Sariah Vickers Primary Care Provider [phone] Yuri Pierre PharmD Unavailable [phone] Basliio Hall MD Unavailable [phone] Ron Preciado MD Unavailable [phone] Reason for Visit * Reason Onset Date Comments Med Refill Durable Medical Equipment 07/15/2023 Foam M attress/Raised Toilet Seat Encounter Details Date Type Department Care Team (Late st Contact Info) Description 07/15/2023 Refill [facility] MEDICINE 230 [place], [place] [phone] Sariah Vickers ANP 230 [place] [address] Neck pain Social History Tobacco Use Types [...] request sent via email by [facility] Sales Operations Manager Arlin Baker. Please Advise. Good morning, Our [facility] Contact Info) Description 01/07/2025 9:30 AM EST Clinical Support [address] [address] Azeb Hall, RN 505 [place] [address] 01/11/2025 1:00 PM EST Office Visit [address] [address] Sariah Vickers ANP [address] [place] [address] 02/03/2025 11:00 AM EST Medication Management [address] [address] Yuri Pierre, PharmD [address] [place] [address] documented as of this encounter Goals Goal [...] documented as of this encounter Care Teams Electromedical Equipment Repairer Relationship Specialty Start Date End Date Sariah Vickers ANP [address] [place] [address] PCP - General Family Medicine 09/23/19 Yuri Pierre, PharmD [address] [place] [address] Pharmacist Internal Medicine 05/05/24 Basilio Hall MD [address] [place] [address] Cardiology 05/17/24 Ron Preciado MD [address] [place] [address] Pulmonary Disease 05/17/24 documented as of this encounter
--- OUTSIDE RECORDS SUMMARY | 2024-12-18 05:43 | XMS_ITS | Encounter Summary ---
Author Organization [employer] Address 75 [facility] 7t [place] [address] Care Team Providers Care Bartenders Name Role Phone Sariah Vickers Primary Care Provider [phone] Yuri Pierre PharmD Unavailable [phone] Basilio Hall MD Unavailable [phone] Ron Preciado MD Unavailable [phone] Reason for Visit * Reason Comments Med Refill Encounter Details Date Type Department Care Team (Late st Contact Info) Description 05/21/2023 Refill [facility] MEDICINE 230 [place] [address] Sariah Vickers ANP 230 [place] [address] Neck pain Social History Tobacco Use Types [...] 01/07/2025 9:30 AM EST Clinical Support [address] [address] Azeb Hall, RN 505 [place] [address] 01/11/2025 1:00 PM EST Office Visit [address] [address] Sariah Vickers, KAYLEE [address] [place] [address] 02/03/2025 11:00 AM EST Medication Management [address] [address] Yuri Pierre, PharmD [address] [place] [address] documented as of this encounter Goals Goal [...] Cervicalgia documented in this encounter Care Teams Bartenders Relationship Specialty Start Date End Date Sariah Vickers ANP 230 [place] [address] PCP - General Family Medicine 09/23/19 Yuri Pierre, MikeD 230 [place] [address] Pharmacist Internal Medicine 05/05/24 Basilio Hall MD [address] [place] [address] Cardiology 05/17/24 Ron Preciado MD [address] [place] [address] Pulmonary Disease 05/17/24 documented as of this encounter
--- OUTSIDE RECORDS SUMMARY | 2024-12-18 05:43 | XMS_ITS | Clinical Summary ---
Author Organization [facility] Address [address] [place] [address] Phone Care Team Providers Care Slip Bridge Operator Name Role Phone Sariah Vickers NP Primary Care Provider [phone] Social History Tobacco Use Types Packs/Day Years [...] age to complete this topic Care Teams Slip Bridge Operator Relationship Specialty Start Date End Date Sariah Vickers NP [address] [place] [phone] PCP - General 12/03/23
--- OUTSIDE RECORDS SUMMARY | 2024-12-18 05:43 | XMS_ITS | Encounter Summary ---
Author Organization [employer] Address 75 [facility] 7t [place] [address] Care Team Providers Care Etiologist Name Role Phone Sariah Vickers Primary Care Provider [phone] Yuri Pierre PharmD Unavailable [phone] Basilio Hall MD Unavailable [phone] Ron Preciado MD Unavailable [phone] Reason for Visit * Reason Comments Med Refill Encounter Details Date Type Department Care Team (Late st Contact Info) Description 05/23/2024 Refill [facility] CHC MED & PEDS [address] [place] [address] Sariah Vickers ANP 230 [place] [address] Cervicalgia Social History Tobacco Use Types Packs/Day [...] 01/07/2025 9:30 AM EST Clinical Support [address] [address] Azeb Hall RN 505 [place] [address] 01/11/2025 1:00 PM EST Office Visit [address] [address] Sariah Vickers ANP [address] [place] [address] 02/03/2025 11:00 AM EST Medication Management [address] [address] Yuri Pierre, MikeD [address] [place] [address] documented as of this encounter Goals Goal [...] documented as of this encounter Care Teams Etiologist Relationship Specialty Start Date End Date Sariah Vickers ANP 230 [place] [address] PCP - General Family Medicine 09/23/19 Yuri Pierre, MikeD [address] [place] [address] Pharmacist Internal Medicine 05/05/24 Basilio Hall MD [address] [place] [address] Cardiology 05/17/24 Ron Preciado MD [address] [place] [address] Pulmonary Disease 05/17/24 documented as of this encounter
--- OUTSIDE RECORDS SUMMARY | 2024-12-18 05:43 | XMS_ITS | Encounter Summary ---
Author Organization [employer] Address 75 [facility] 7t [place] [address] Care Team Providers Care Test Kitchen Home Economist Name Role Phone Sariah Vickers Primary Care Provider [phone] Yuri Pierre PharmD Unavailable [phone] Basilio Hall MD Unavailable [phone] Ron Preciado MD Unavailable [phone] Reason for Visit * Reason Comments Med Refill Encounter Details Date Type Department Care Team (Late st Contact Info) Description 06/30/2023 Refill [facility] MEDICINE 230 [place] [address] Sariah Vickers ANP 230 [place] [address] Neck pain Social History Tobacco Use Types [...] Description 01/07/2025 9:30 AM EST Clinical Support [address] [address] Azeb Hall, MARTIN 505 [place] [address] 01/11/2025 1:00 PM EST Office Visit [address] [address] Sariah Vickers ANP [address] [place] [address] 02/03/2025 11:00 AM EST Medication Management [address] [address] Yuri Pierre, MikeD [address] [place] [address] documented as of this encounter Goals Goal [...] as of this encounter Care Teams Test Kitchen Home Economist Relationship Specialty Start Date End Date Sariah Vickers ANP 230 [place] [address] PCP - General Family Medicine 09/23/19 Yuri Pierre, MikeD [address] [place] [address] Pharmacist Internal Medicine 05/05/24 Basilio Hall MD [address] [place] [address] Cardiology 05/17/24 Ron Preciado MD [address] [place] [address] Pulmonary Disease 05/17/24 documented as of this encounter
--- OUTSIDE RECORDS SUMMARY | 2024-12-18 05:43 | XMS_ITS | Encounter Summary ---
Author Organization [employer] Address 75 [facility] 7t [place] [address] Care Team Providers Care Semi Truck Driver Name Role Phone Sariah Vickers Primary Care Provider [phone] Yuri Pierre PharmD Unavailable [phone] Basilio Hall MD Unavailable [phone] Ron Preciado MD Unavailable [phone] Reason for Visit * Reason Comments Med Refill Encounter Details Date Type Department Care Team (Late st Contact Info) Description 08/14/2022 Refill [facility] CHC MED & PEDS [address] [place] [address] Sariah Vickers ANP 230 [place] [address] Severe persistent asthma without complication Social History [...] 01/07/2025 9:30 AM EST Clinical Support [address] [address] Azeb Hall, RN 505 [place] [address] 01/11/2025 1:00 PM EST Office Visit [address] [address] Sariah Vickers ANP [address] [place] [address] 02/03/2025 11:00 AM EST Medication Management [address] [address] Yuri Pierre, PharmD [address] [place] [address] documented as of this encounter Visit Diagnoses Diagnosis Severe persistent asthma without complication (HCC) documented in this encounter Care Teams Semi Truck Driver Relationship Specialty Start Date End Date Sariah Vickers ANP [address] [place] [address] PCP - General Family Medicine 09/23/19 Yuri Pierre, PharmD [address] [place] [address] Pharmacist Internal Medicine 05/05/24 Basilio Hall MD 5[address] [place] [address] Cardiology 05/17/24 Ron Preciado MD [address] [place] [address] Pulmonary Disease 05/17/24 documented as of this encounter
--- OUTSIDE RECORDS SUMMARY | 2024-12-18 05:43 | XMS_ITS | Encounter Summary ---
Author Organization [employer] Address 75 [facility] 7t [place] [address] Care Team Providers Care Animal Trapper Name Role Phone Sariah Vickers Primary Care Provider [phone] Yuri Pierre PharmD Unavailable [phone] Basilio Hall MD Unavailable [phone] Ron Preciado MD Unavailable [phone] Reason for Visit * Reason Comments Med Refill Encounter Details Date Type Department Care Team (Late st Contact Info) Description 05/09/2023 Refill [facility] MEDICINE 230 [place] [address] Sariah Vickers ANP 230 [place] [address] High cholesterol Social History Tobacco Use Types [...] Description 01/07/2025 9:30 AM EST Clinical Support [address] [address] Azeb Hall RN [address] [place] [address] 01/11/2025 1:00 PM EST Office Visit [address] [address] Sariah Vickers ANP [address] [place] [address] 02/03/2025 11:00 AM EST Medication Management [address] [address] Yuri Pierre, MikeD [address] [place] [address] documented as of this encounter Goals Goal [...] documented in this encounter Care Teams Animal Trapper Relationship Specialty Start Date End Date Sariah Vickers ANP 230 [place] [address] PCP - General Family Medicine 09/23/19 Yuri Pierre, MikeD [address] [place] [address] Pharmacist Internal Medicine 05/05/24 Basilio Hall MD [address] [place], [place] [address] Cardiology 05/17/24 Ron Preciado MD [address] [place] [address] Pulmonary Disease 05/17/24 documented as of this encounter
--- OUTSIDE RECORDS SUMMARY | 2024-12-18 05:43 | XMS_ITS | Data Portability ---
Author Organization [employer] [facility] Address [address] [place] [address] Care Team Providers Care Wireless Sales Expert Name Role Phone HIM CCA OTHER Assessment Encounter Date Assessment Date Assessment LastModified by Organization Details LastModified Time 09/23/2024 09/23/2024 Mrs. Da Silva presented for isolated episode of nausea and vomiting after taking augmentin on empty stomach. She is on augmentin and prednisone for asthma. Patient afebrile and well-appearing, no abdominal tenderness or distension per community lieutenant governor exam, nausea has resolved. No chest pain [...] Assessment and Plan as documented by the Neighborhood Service Center Director. We discussed the diagnostic uncertainty of home [...] 4 mg disintegrat ing tablet [address] [facility], [address] [place] [address], [id number], 09:18:37 Patient TargetsNo targets recorded. Patient InstructionsNo instructions recorded. Reason for Referral None Reported. Medical Equipment None Reported. Allergies Allergen ID Allergen Name Allergen Category Reaction Reaction Severity Criticality Documentation Date Start Date Code Code System Note Provider Name and Address Organization Details Recorded Time 94880 aspirin medicatio n Not available Not available Not available 05/29/2024 1191 RxNorm Not Available [facility] - production 13:30:18 24971 naproxen medicatio n Not available Not available [...] Not Available No t Available [facility] 10 billion cell-200 [...] Available No t Available [employer] Jalil 2 [place] USE DIRECTED TO TEST BLOOD SUGAR EVERY [...] Available No t Available [employer] 3 [place] USE DIRECTED TO TEST BLOOD SUGAR active [...] /min 98 [degF] 126/83 mm[Hg] Not Available [employer] 5 16:18:21 Date Recorded Body temperature Oxygen saturation Oxygen saturation in Arterial blood by Pulse oximetry Heart rate Body weight Respiratory rate Body height Systolic And Diastolic Provider Name and Address Organization Details Last Updated DateTime 5 97.6 [degF] 95 % 95 % 82 /min 64346.8 88 g 16 /min 157.48 cm 122/84 mm[Hg] Not Available [employer] [facility] 17:32:44 Social History None recorded. Functional Status None recorded. Mental Status None recorded. Family History Nothing Reported. Medical History No medical history recorded. Gynecological HistoryNo gynecological history recorded. Obstetrics History GPAL:G 0 P 0 0 0 0 Past Encounters Encounter ID Performer Location Encounter Start Date Encounter Closed Date Diagnosis/Indication Diagnosis SNOMED-CT Code Diagnosis ICD10 Code Diagnosis IMO Codes Diagnosis Note [id number] Kathy Gonzalez [facility] [address] [place] [phone] 05/29/2024 16:18:16 05/30/2024 23:53:07 Wound finding 148031756 Z51.89 [id number] Evaluation in the field was performed by my lieutenant governor colleague, as noted above, I provided real-time [...] shortness of breath, cough, chest pain, fever. [id number] MORGAN JAY MD [facility] ED Medical [address] [phone] 09/23/2024 17:32:41 09/23/2024 22:05:40 Nausea and vomiting 18308668 R11.2 [id number] Health Concerns Section Related Observation LastModified by Organization Detai ls LastModified Time None Recorded Concern Status LastModified by Organization Details LastModified Time None Recorded Advance Directives Directive None Recorded Payers Insurance Date Sequence Insurance Name Policy Number Policy Laws Covered Member ID Laws Member ID Guarantor Name 09/23/2024 1 [facility] - DOS ON OR AFTER 2022 - DUAL ELIGIBLE - [facility] OPTIONS AND ONE CARE (MEDICARE REPLACEMENT/ADV ANTAGE - HMO) Nuvia Da Silva [id number] Nuvia E Avinash Notes Date Note Type Note Provider Name and Address Organization Details Recorded Time 05/29/2024 text/html CRC Nurse Triage Notes (Tania Kan): Reason For Request: wound care after surgery Chief Complaints: Wound Care PMH: Diabetes Mellitus Type 2, Hyperlipidemia, Hypertension, Kidney Stones, Hysterectomy, Hypothyroidism, Asthma PMH Reviewed at 05/29/2024: Allergies Reviewed at 05/29/2024 Comments: Referral taken via Senior Manager, patient calling in to place a referral. [...] ...................... ...................... ...................... ...................... ...................... ...................... ......... Neighborhood Service Center Director Note From Albert Murphy: Arrived to find patient ambulating in her apartment. Patient AOX4, GCS 15, skin pink warm and dry. Patient Cambodian speaking only. Sales Superintendent line used. Patient had hernia surgery on and is wondering if the steri strips are suppose to remain or if she needs to remove them. Educated patient that they stay and will fall off on their own. VS as noted. [facility] came on and was able to interact with patient. MD answered all questions for pt. Patient reassured. Red flags went over with pt. Patient denies any cp, sob, fevers. Incision looks clean and intact. ...................... ...................... ...................... ...................... ...................... ...................... ......... [facility] Consulted: Kathy Gonzalez ...................... ...................... ...................... ...................... ...................... ...................... ......... Disposition: Fulfilled Kathy Gonzalez MD [address] [place] [address],[address], [place], [phone] [place] [facility] 05/29/2024 16:25:31 09/23/2024 text/html ROS as noted in the [facility] CRC Nurse Triage Notes (Swapna Russo): [...] until assessment. POC glucose was 119. Primarily Cambodian Speaking. Referral for GI upset, chest congestion/cough/weakn ess. Member aware. I provided information on the mobile health provider response time and advised the patient and/or caregiver to monitor reported signs and symptoms. I discussed the warning signs of when to seek emergency care. ...................... ...................... ...................... ...................... ...................... ...................... ......... Neighborhood Service Center Director Note From Sebastien Bliss: instED visit for female pt with complaint of vomiting. Visit was completed with assistant teacher primary by phone. Pt reports single episode of [...] endorsing any shortness of breath. Consulted with [facility] Dr. Jay who prescribed some zofran sent to pt's pharmacy. Red flags relayed by Dr. Jay. Pt education provided. ...................... ...................... ...................... ...................... ...................... ...................... ......... [facility] Consulted: Morgan Jay ...................... ...................... ...................... ...................... ...................... ...................... ......... Disposition: Fulfilled MORGAN JAY MD [address] [facility],[address], [place], [address], [employer] 09/23/2024 20:39:32 OBGyn Episode No OBEpisode recorded.
--- OUTSIDE RECORDS SUMMARY | 2024-12-18 05:43 | XMS_ITS | Encounter Summary ---
Author Organization [email or web address] Address 75 [facility] 7t [place] [address] Care Team Providers Care Safety And Skill Based Pay Manager Name Role Phone Sariah Vickers Primary Care Provider [phone] Yuri Pierre PharmD Unavailable [phone] Basilio Hall MD Unavailable [phone] Ron Preciado MD Unavailable [phone] Reason for Visit * Reason Onset Date Comments Appointment Request 09/03/2024 Encounter Details Date Type Department Care Team (Late st Contact Info) Description 09/03/2024 Telephone [facility] MEDICINE [address] [place] [address] Sariah Vickers ANP [address] [place] [address] Appointment Request Social History Tobacco Use Types [...] when making the apt. Contact pt at [phone] documented in this encounter Plan of Treatment Upcoming Encounters Date Type Department Care Team ([facility] st Contact Info) Description 01/07/2025 9:30 AM EST Clinical Support [address] [address] Azeb Hall RN 505 [place] [address] 01/11/2025 1:00 PM EST Office Visit [address] [address] Sariah Vickers ANP [address] [place] [address] 02/03/2025 11:00 AM EST Medication Management [address] [place] [address] Yuri Pierre, PharmD [address] [place] [address] documented as of this encounter Goals Goal [...] documented as of this encounter Care Teams Safety And Skill Based Pay Manager Relationship Specialty Start Date End Date Sariah Vickers ANP [address] [place] [address] PCP - General Family Medicine 09/23/19 Yuri Pierre, PharmD [address] [place] [address] Pharmacist Internal Medicine 05/05/24 Basilio Hall MD [address] [place] [address] Cardiology 05/17/24 Ron Preciado MD [address] [place] [address] Pulmonary Disease 05/17/24 documented as of this encounter
--- OUTSIDE RECORDS SUMMARY | 2024-12-18 05:43 | XMS_ITS | Encounter Summary ---
Author Organization [employer] Address [address] [facility] 7t [place] [address] Care Team Providers Care Bag Machine Set Up Operator Name Role Phone Sariah Vickers Primary Care Provider [phone] Yuri Pierre PharmD Unavailable [phone] Basilio Hall MD Unavailable [phone] Ron Preciado MD Unavailable [phone] Reason for Visit * Reason Comments Med Refill Encounter Details Date Type Department Care Team (Late st Contact Info) Description 11/12/2024 Refill [facility] [address] [place] [address] Sariah Vickers ANP [address] [place] [address] Neck pain Social History Tobacco Use Types [...] Description 01/07/2025 9:30 AM EST Clinical Support [address] [address] Azeb Hall RN [address] [place] [address] 01/11/2025 1:00 PM EST Office Visit [facility] [address] [place] [phone] Sariah Vickers, ANP [address] [place] [phone] 02/03/2025 11:00 AM EST Medication Management [address] [address] Yuri Pierre, PharmD [address] [place] [phone] documented as of this encounter Goals Goal [...] documented as of this encounter Care Teams Bag Machine Set Up Operator Relationship Specialty Start Date End Date Sariah Vickers ANP [address] [place] [address] PCP - General Family Medicine 09/23/19 Yuri Pierre, MikeD [address] [place] [address] Pharmacist Internal Medicine 05/05/24 Basilio Hall MD [address] [place] [address] Cardiology 05/17/24 Ron Preciado MD [address] [place] [phone] Pulmonary Disease 05/17/24 documented as of this encounter
--- OUTSIDE RECORDS SUMMARY | 2024-12-18 05:43 | XMS_ITS | Encounter Summary ---
Author Organization [employer] Address [address] [facility] 7t [place] [address] Care Team Providers Care Behavioral Services Tech Name Role Phone Sariah Vickers Primary Care Provider [phone] Yuri Pierre PharmD Unavailable [phone] Basilio Hall MD Unavailable [phone] Ron Preciado MD Unavailable [phone] Reason for Visit * Reason Comments Med Refill Encounter Details Date Type Department Care Team (Late st Contact Info) Description 07/12/2022 Refill [facility] [address] [place] [address] Sariah Vickers ANP [address] [place] [address] Social History Tobacco Use Types Packs/Day Years [...] 01/07/2025 9:30 AM EST Clinical Support [address] [address] Azeb Hall, RN [address] [place] [address] 01/11/2025 1:00 PM EST Office Visit [address] [address] Sariah Vickers ANP [address] [place] [address] 02/03/2025 11:00 AM EST Medication Management [address] [address] Yuri Pierre, PharmD [address] [place] [phone] documented as of this encounter Visit Diagnoses Not on filedocumented in this encounter Care Teams Behavioral Services Tech Relationship Specialty Start Date End Date Sariah Vickers ANP [address] [place] [phone] PCP - General Family Medicine 09/23/19 Yuri Pierre, PharmD [address] [place] [address] Pharmacist Internal Medicine 05/05/24 Basilio Hall MD [address] [place] [address] Cardiology 05/17/24 Ron Preciado MD [address] [place] [address] Pulmonary Disease 05/17/24 documented as of this encounter
[2024-12-18 06:10] LABS: MANUAL DIFF FLAG NO
[2024-12-18 06:12] LABS: Hematocrit 40.8 % (37.0-47.0); Hemoglobin 13.6 g/dl (12.0-16.0); Imm Gran Abs Auto 0.02 X10*3/uL (0.00-0.03); Imm Gran Pct Auto 0.2 % (0.0-0.4); Lymphocytes Absolute Auto 2.7 X10*3/uL (1.2-4.9); Mean Corpuscular HGB Conc 33.3 g/dl (31.0-35.0); Mean Corpuscular Hemoglobin 32.0 pg (27.0-33.0); Mean Corpuscular Volume 96.0 fL (80.0-98.0); NRBC Abs Auto 0.000 X10*3/uL (0.0-0.012); NRBC Pct Auto 0.0 /100WBC (0.0-0.2); Platelet Count 258 X10*3/uL (160-400); Red Blood Count 4.25 X10*6/uL (4.20-5.50); White Blood Count 8.9 X10*3/uL (4.8-10.8)
[2024-12-18 06:25] LABS: Alanine Aminotransferase 16 U/L (0-31); Albumin Level 3.8 g/dL (3.5-5.0); Alkaline Phosphatase 88 U/L (39-117); Anion Gap 11 (12-20); Aspartate Amino Transferase 26 U/L (5-31); Blood Urea Nitrogen 16 mg/dL (9-16); COVID-19 Test Positive (Negative); Calcium 8.9 mg/dL (8.4-10.2); Carbon Dioxide 25 mmol/L (22-29); Chloride 111 mmol/L (96-108); Creatinine Clr Calc Pharmacy 66.3; Estimated Glomerular Filt Rate 55; IDNOW Serial# 16C4AD1C; Lipase 25 U/L (8-78); Potassium 3.6 mmol/L (3.3-5.1); Sodium 143 mmol/L (135-145); Total Protein 6.9 g/dL (6.5-8.0)
[2024-12-18 06:27] LABS: IDNOW Serial# 152EDE1D; Influenza B2 Negative (Negative)
--- NOTE | 2024-12-18 06:54 | ED.ABDPAIN ---
HPI - Abdominal Pain General Chief Complaint: Abdominal Pain Stated Complaint: ABD Pain Time Seen by Provider: 12/18/24 06:07 History of Present Illness HPI narrative: Patient is a 64-year-old female presents today with having some coughing generalized malaise weakness. History of fibromyalgia history of hypertension, PTSD, diabetes, COPD , diabetes. baseline not on oxygen. Presented with some abdominal pain. The abdominal pain is diffuse. Had had previous hernia surgery in past. Patient had a bowel movement yesterday. No coughing or congestion or upper respiratory symptoms. No diaphoresis. Patient is from home. Related Data Home Medications ?Medication ?Instructions ?Recorded ?Confirmed potassium chloride 20 mEq 20 meq PO BID 11/20/19 06/08/24 tablet,extended release(part/cryst) zolpidem 10 mg tablet 10 mg PO BEDTIME PRN Insomnia 11/20/19 06/08/24 clonazepam 1 mg tablet (Klonopin) 1 mg PO DAILY 03/08/20 06/08/24 montelukast 10 mg tablet 10 mg PO BEDTIME 03/08/20 06/08/24 multivitamin-ferrous 1 tab PO DAILY 07/06/21 06/08/24 fumarate-folic acid 18 mg-400 mcg tablet (Certavite-Antioxidant) tramadol 50 mg tablet 50 mg PO Q12H PRN Pain 01/31/22 06/08/24 acetaminophen 325 mg tablet 650 mg PO Q6H PRN pain 06/11/22 06/08/24 amlodipine 10 mg tablet 10 mg PO BEDTIME 07/09/23 06/08/24 cetirizine 10 mg tablet 10 mg PO QPM 07/09/23 06/08/24 enalapril maleate 20 mg tablet 20 mg PO DAILY 07/09/23 06/08/24 insulin lispro 100 unit/mL 4 unit subcut TID PRN Hyperglycemia 12/18/23 06/08/24 subcutaneous pen (Humalog KwikPen (U-100) Insulin) meclizine 25 mg tablet 25 mg PO TID PRN Dizziness 12/18/23 06/08/24 clonazepam 1 mg tablet 0.5 mg PO BEDTIME PRN Sleep 03/21/24 06/08/24 fluticasone propionate 50 2 spray intranasal QAM 03/21/24 06/08/24 mcg/actuation nasal spray,suspension ipratropium 0.5 mg-albuterol 3 mg 3 ml inhalation Q6H PRN Shortness 03/21/24 06/08/24 (2.5 mg base)/3 mL nebulization Of Breath Or Wheezing soln lidocaine 5 % topical patch 1 patch topical DAILY PRN Pain 03/21/24 06/08/24 risperidone 0.5 mg tablet 0.5 mg PO BID 03/21/24 06/08/24 flash glucose scanning reader #1 ea 06/15/24 (FreeStyle Jalil 2 [place]) fluticasone 250 mcg-salmeterol 50 1 ea inhalation BID 06/15/24 mcg/dose blistr powdr for inhalation buspirone 15 mg tablet 15 mg PO TID 10/12/24 ketotifen fumarate 0.025 % (0.035 1 drp ophthalmic (eye) BID 10/12/24 %) eye drops Previous Rx's ?Medication ?Instructions ?Recorded leg brace (Knee Support Brace) #2 ea 03/08/20 blood-glucose meter (FreeStyle #1 ea 02/28/22 Flash System kit) pen needle, diabetic 32 gauge x ##100 10/01/2232 (UltiCare Pen Needle) gabapentin 400 mg capsule 400 mg PO BEDTIME #30 caps 01/01/23 omalizumab 150 mg subcutaneous 300 mg subcut Q2W 28 days #4 ea 05/19/23 solution blood sugar diagnostic (FreeStyle #100 strips 03/19/24 Lite Strips) lancets 33 gauge (TRUEplus Lancets) #100 ea 03/19/24 blood-glucose sensor (FreeStyle #2 ea 04/02/24 Jalil 3 Plus Sensor device) blood-glucose,child monitor,cont #1 ea 04/02/24 (FreeStyle Jalil 3 [place]) semaglutide 0.25 mg or 0.5 mg (2 0.5 mg (0.736 mL) subcut SA #3 mL 04/06/24 mg/3 mL) subcutaneous pen injector (Ozempic) Held on 11/12/24. Instructions: Doctor's Order Lactobacillus rhamnosus GG 10 1 cap PO DAILY #30 caps 06/15/24 billion cell capsule (Culturelle) ipratropium 20 mcg-albuterol 100 1 puff inhalation Q6H #4 grams 07/29/24 mcg/actuation mist for inhalation (Combivent Respimat) peg 3350-electrolytes 236 240 ml PO Q10M 1 day #4,000 mL 08/12/24 gram-22.74 gram-6.74 gram-5.86 gram solution (Golytely) tiotropium bromide 18 mcg capsule 1 cap inhalation DAILY #30 caps 08/26/24 with inhalation device (Spiriva with HandiHaler) docusate sodium 100 mg capsule 100 mg PO BID #60 caps 10/12/24 (Stool Softener) metoclopramide HCl 5 mg tablet 5 mg PO TID #90 tabs 10/12/24 sennosides 8.6 mg tablet (senna) 17.2 mg (2 x 8.6 mg) PO BEDTIME 10/12/24 for constipation #60 tabs levothyroxine 88 mcg tablet 88 mcg PO DAILY #30 tabs 11/12/24 (Levoxyl) omeprazole 20 mg capsule,delayed 20 mg PO BID #60 caps 11/12/24 release plecanatide 3 mg tablet (Trulance) 3 mg PO BEDTIME #30 tabs 11/12/24 hydrocortisone 2.5 % topical cream 1 ea NV BID #30 grams 11/24/24 with perineal applicator (Proctozone-HC) albuterol sulfate 90 mcg/actuation 2 puff PO Q4-6H PRN for wheezing 12/13/24 aerosol inhaler (Ventolin HFA) #18 grams Allergies Allergy/AdvReac Type Severity Reaction Status Date / Time Fish Containing Products Allergy Intermediate Swelling Verified 12/18/24 05:34 vancomycin Allergy Intermediate Rash Verified 12/18/24 05:34 aspirin (Aspirin) Allergy Mild ITCHY Verified 12/18/24 05:34 THROAT azithromycin Allergy Unknown Unknown Verified 12/18/24 05:34 naproxen Allergy Unknown Unknown Verified 12/18/24 05:34 simvastatin Allergy Unknown Unknown Verified 12/18/24 05:34 onion (ONION) AdvReac Mild RED FACE Verified 12/18/24 05:34 Review of Systems Review of Systems Positive coughing upper respiratory symptoms Yes all other systems are reviewed and are negative PMFSH Past Medical History Attestation statement: The following information was validated with the patient. Medical History Uncontrolled type 2 diabetes mellitus with hyperglycemia, with long-term current use of insulin Severe persistent asthma NIDDY (non-insulin dependent diabetes mellitus in young) COPD (chronic obstructive pulmonary disease) Cellulitis of labia Pulmonary hypertension, pre-operative cardiovascular examination Arthritis Thyroid disease Bilateral renal cysts Right bundle branch block Dental calculus Depression Varicose veins of left lower extremity Ectatic aorta Paresthesia Paresis of one side of face Neck pain Insomnia disorder, with non-sleep disorder mental comorbidity Increased immunoglobulin Constipation Aneurysm of left internal carotid artery Abnormal ultrasound of kidney Type 2 diabetes mellitus History of kidney stones Abnormal finding on ultrasound Tear of medial meniscus of left knee Leg pain Kidney stone on left side MOCK (dyspnea on exertion) Patellofemoral arthritis of left knee Trochanteric bursitis of right hip COVID-19 Carpal tunnel syndrome of right wrist Renal calculi UTI (urinary tract infection) Allergic rhinitis Anxiety and depression Fibromyalgia HTN (hypertension) PTSD (post-traumatic stress disorder) Preop pulmonary/respiratory exam Vertigo Diabetes Asthma Chest pain Tubular adenoma of colon Vulvovaginitis Acute asthma exacerbation Candidiasis of mouth and esophagus Bronchitis Spondylosis of cervical region without myelopathy or radiculopathy Bronchitis COPD exacerbation Yeast infection Papanicolaou smear for cervical cancer screening Bilateral hand pain Bilateral knee pain Low vitamin D level Dry mouth Environmental allergies Non-toxic multinodular goiter Hypothyroidism Type 2 diabetes mellitus with hyperglycemia DVT (deep venous thrombosis) Menopausal state Cocaine abuse Surgical History Encounter for postoperative wound check Status post umbilical hernia repair, follow-up exam Carbuncle and furuncle of buttock Carbuncle of abdominal wall Umbilical hernia Umbilical hernia Hx of carpal tunnel repair History of esophagogastroduodenoscopy (EGD) H/O colonoscopy with polypectomy History of selective injection of anesthetic agent around lumbar nerve root Hx of right breast biopsy History of hysterectomy History of lithotripsy Family History Family History Father No problems noted. Mother Myocardial infarction CVA (cerebral vascular accident) Social History Social History Household Members: Children Housing: Apartment Are you a primary healthcare or medical to a significant other at home: No Do you presently have visiting nurse or other home services: Yes (COLLARETTE SEPARATOR) Alcohol intake: never Comment: COUNTS CORRECT Patient Tobacco Use Status: Never used Tobacco Smoked in Last 30 Days: No Use of substances other than those prescribed or required for medical reasons: No Advance Directives: Yes Advance Directives Information Provided: Yes Advance Directives on File: No Do you have a plan to hurt others: No Plan service: No Current occupational status: disabled 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 Oriented X3. No acute distress. Eyes: Pupils equal, round and reactive to light. ENT: Pharynx normal. Neck: Normal inspection. Neck supple. No lymph nodes noted. No crepitus CVS: Normal heart rate and rhythm. Pulses normal. Normal S1 and S2 Respiratory: No respiratory distress. Breath sounds normal. No Wheezing. No rales Abdomen: Soft and nontender. No rigidity. No distention. good BS x4 Skin: Skin warm and dry. Normal skin color. Normal skin turgor. Extremities: No lower extremity edema. Neurovascular intact to all extremities. No Lacerations. No Rash Neuro: Oriented X 3. No motor deficit. No sensory deficit. Moving all extermities. No slurred speech Vital Signs: Vital Signs - 24 hr 12/18/24 05:26 12/18/24 05:42 Temperature 97.6 F 97.6 F Pulse Rate 76 76 Respiratory Rate 18 18 Blood Pressure 108/62 108/62 Pulse Oximetry 92 92 Oxygen Delivery Method Room Air Room Air BMI result Body Mass Index 32.6 Medical Decision Making Medical Decision Making [facility] Narrative: Patient's CT scan of the abdomen pelvis was grossly negative. No obstruction no abscess no perforation electrolytes unremarkable. Positive coughing upper respiratory symptoms generalized malaise. COVID test actually came back positive. My interpretation patient's chest x-ray is also negative. Likely the cause of patient's pain is from the COVID. Will discharge patient home. Close follow-up advised. White count was normal. Electrolytes consistent with diabetes but no DKA. LFTs are normal. Urine showed no signs of infection. Differential Diagnosis Differential Diagnoses: The differential diagnosis associated with the presentation includes Abdominal pathology, pneumonia, COVID flu RSV Admission/Observation Consideration of admission/observation: Escalation of care including admission/observation considered Lab Data [facility] Lab Attestation statement: I reviewed the patient's lab results. 12/18/24 06:00 12/18/24 06:00 Labs: Lab Results 12/18/24 12/18/24 Range/Units 06:00 08:21 WBC 8.9 (4.8-10.8) X10*3/uL RBC 4.25 (4.20-5.50) X10*6/uL Hgb 13.6 (12.0-16.0) g/dl Hct 40.8 (37.0-47.0) % MCV 96.0 (80.0-98.0) fL MCH 32.0 (27.0-33.0) pg MCHC 33.3 (31.0-35.0) g/dl RDW 13.1 (11.0-16.0) % Plt Count 258 (160-400) X10*3/uL MPV 9.1 L (9.4-12.3) fL Immature Gran % (Auto) 0.2 (0.0-0.4) % Neut % (Auto) 64.2 (45-73) % Lymph % (Auto) 30.1 (20-40) % [place] % (Auto) 3.0 (2-11) % Eos % (Auto) 2.1 (0-4) % Baso % (Auto) 0.4 (0-2) % Lymph # (Auto) 2.7 (1.2-4.9) X10*3/uL [place] # (Auto) 0.3 (0.1-1.2) X10*3/uL Eos # (Auto) 0.2 (0.0-0.4) X10*3/uL Baso # (Auto) 0.0 (0.0-0.2) X10*3/uL Abs Immat Gran (auto) 0.02 (0.00-0.03) X10*3/uL Absolute Neuts (auto) 5.7 (2.0-8.3) x10*3/uL Absolute Nucleated RBC 0.000 (0.0-0.012) X10*3/uL Nucleated RBC % (auto) 0.0 (0.0-0.2) /100WBC Sodium 143 (135-145) mmol/L Potassium 3.6 (3.3-5.1) mmol/L Chloride 111 H (96-108) mmol/L Carbon Dioxide 25 (22-29) mmol/L Anion Gap 11 L (12-20) BUN 16 (9-16) mg/dL Creatinine 1.01 (0.5-1.4) mg/dL Estim Creat Clear Calc 66.3 Estimated GFR 55 Random Glucose 222 H (60-115) mg/dL Calcium 8.9 D (8.4-10.2) mg/dL Total Bilirubin 0.3 (0.0-1.0) mg/dL AST 26 (5-31) U/L ALT 16 (0-31) U/L Alkaline Phosphatase 88 (39-117) U/L Total Protein 6.9 (6.5-8.0) g/dL Albumin 3.8 (3.5-5.0) g/dL Lipase 25 (8-78) U/L Urine Color Yellow Urine Appearance Clear Urine pH 7.0 (5.0-9.0) Ur Specific [place] 1.025 (1.005-1.025) Urine Protein Negative (Neg-Trace) mg/dL Urine Glucose (UA) Negative (Negative) mg/dL Urine Ketones Negative (Negative) mg/dL Urine Blood Negative (Negative) Urine Nitrite Negative (Negative) Ur Leukocyte Esterase Small (1+) H (Negative) Urine RBC 0-2 (0-2) /HPF Urine WBC 0-5 (0-5) /HPF Ur Squamous Epith Cells 0-2 (0-2) /HPF Urine Bacteria None Seen (None Seen) Hyaline Casts 0-2 (0-2) /LPF COVID-19 (DONALD) Positive A (Negative) COVID-19 Clin Com See Note Influenza Type A (MAGDALENE) Negative (Negative) Influenza Type B (MAGDALENE) Negative (Negative) Influenza A & B Note See Note Independent Interpretation I performed an independent interpretation of an: Plain X-Ray (Chest x-ray negative for pneumonia pneumothorax) and CT Scan (CT abdomen pelvis grossly negative for obstruction abscess perforation) Radiology Impression Discussion of test interpretation with radiology: I have reviewed the radiologist's reading. Chronic Conditions Patient?s care impacted by: Diabetes and Hypertension Social Determinants Patient?s care significantly limited by Social Determinants of Health including: Problems related to primary support group Medications Administered Discontinued Medications Generic Name Dose Route Start Last Admin Trade Name Freq PRN Reason Stop Dose Admin Sodium Chloride 1,000 mls @ 999 mls/hr 12/18/24 07:00 12/18/24 08:44 Ns IV 12/18/24 08:00 Infused .Q1H1M HEIDE Infusion Iohexol 100 ml 12/18/24 08:13 12/18/24 08:13 Iohexol 350 Mg/Ml 100 Ml Infus..Btl IV 12/18/24 08:14 85 ml ONCE ONE Administration Discharge Plan Discharge Clinical Impression: COVID Patient Disposition: Home, Self-Care Instructions: COVID-19 (Coronavirus Disease 2019) (ED) Prescriptions: No Action (DME) blood-glucose meter [FreeStyle Flash System] Kit See Rx Instructions .Route Qty: 1 0RF Rx Instructions: As directed (DME) pen needle, diabetic [UltiCare Pen Needle] 32 gauge x 5/32 needle See Rx Instructions .ROUTE .COMPLEX Qty: 100 5RF Dose Instruction: USE FOUR TIMES DAILY Rx Instructions: USE FOUR TIMES DAILY gabapentin 400 mg capsule 400 mg PO BEDTIME Qty: 30 4RF omalizumab 150 mg recon soln 300 mg subcut Q2W 28 Days Qty: 4 11RF Rx Instructions: requires multiple injection sites; do not exceed 150 mg per injection site (DME) FreeStyle Lite Strips Strip See Rx Instructions .ROUTE .COMPLEX Qty: 100 5RF Dose Instruction: TEST BLOOD SUGAR FOUR TIMES DAILY Rx Instructions: TEST BLOOD SUGAR FOUR TIMES DAILY (DME) lancets [TRUEplus Lancets] 33 gauge misc See Rx Instructions .ROUTE .COMPLEX Qty: 100 5RF Dose Instruction: TEST BLOOD SUGAR FOUR TIMES DAILY Rx Instructions: TEST BLOOD SUGAR FOUR TIMES DAILY (DME) FreeStyle Jalil 3 [place] Misc See Rx Instructions .MEDSUPPLY Qty: 1 0RF Rx Instructions: Use daily As directed to monitor blood glucose (DME) FreeStyle Jalil 3 Plus Sensor Device See Rx Instructions .MEDSUPPLY Qty: 2 5RF Rx Instructions: Use daily As directed to monitor glucose Ozempic 0.25 mg or 0.5 mg (2 mg/3 mL) pen injector 0.5 mg subcut SA Qty: 3 4RF Patient Comments: patient takes every Friday Combivent Respimat 20-100 mcg/actuation mist 1 puff inhalation Q6H Qty: 4 6RF peg 3350-electrolytes [Golytely] 236-22.74-6.74 -5.86 gram recon soln 240 ml PO Q10M 1 Days Qty: 4000 0RF Rx Instructions: until fecal effluent is clear; do not exceed a total volume of 2,000 mL tiotropium bromide [Spiriva with HandiHaler] 18 mcg capsule, w/inhalation device 1 cap inhalation DAILY Qty: 30 6RF hydrocortisone [Proctozone-HC] 2.5 % cream with perineal applicator 1 ea NV BID Qty: 30 6RF albuterol sulfate [Ventolin HFA] 90 mcg/actuation HFA aerosol inhaler 2 puff PO Q4-6H PRN (Reason: for wheezing) Qty: 18 6RF Certavite-Antioxidant 18-400 mg-mcg Tablet 1 tab PO DAILY cetirizine 10 mg tablet 10 mg PO QPM enalapril maleate 20 mg tablet 20 mg PO DAILY amlodipine 10 mg tablet 10 mg PO BEDTIME ipratropium-albuterol 0.5 mg-3 mg(2.5 mg base)/3 mL solution for nebulization 3 ml inhalation Q6H PRN (Reason: Shortness Of Breath Or Wheezing) clonazepam 1 mg tablet 0.5 mg PO BEDTIME PRN (Reason: Sleep) fluticasone propionate 50 mcg/actuation spray,suspension 2 spray intranasal QAM risperidone 0.5 mg tablet 0.5 mg PO BID lidocaine 5 % adhesive patch,medicated 1 patch topical DAILY PRN (Reason: Pain) Rx Instructions: leave on most painful area for up to 12 hrs montelukast 10 mg tablet 10 mg PO BEDTIME clonazepam [Klonopin] 1 mg tablet 1 mg PO DAILY Rx Instructions: administer 30 minutes before bedtime (DME) Knee Support Brace Misc See Rx Instructions .ROUTE .MEDSUPPLY Qty: 2 0RF Rx Instructions: As directed zolpidem 10 mg tablet 10 mg PO BEDTIME PRN (Reason: Insomnia) potassium chloride 20 mEq tablet,ER particles/crystals 20 meq PO BID acetaminophen 325 mg tablet 650 mg PO Q6H PRN (Reason: pain) tramadol 50 mg tablet 50 mg PO Q12H PRN (Reason: Pain) insulin lispro [Humalog KwikPen Insulin] 100 unit/mL insulin pen 4 unit subcut TID PRN (Reason: Hyperglycemia) Rx Instructions: use as directed with meals meclizine 25 mg tablet 25 mg PO TID PRN (Reason: Dizziness) (DME) FreeStyle Jalil 2 [place] Misc See Rx Instructions .ROUTE .MEDSUPPLY Qty: 1 Rx Instructions: As directed fluticasone propion-salmeterol 250-50 mcg/dose blister with device 1 ea inhalation BID Culturelle 10 billion cell capsule 1 cap PO DAILY Qty: 30 12RF ketotifen fumarate 0.025 % (0.035 %) drops 1 drp ophthalmic (eye) BID buspirone 15 mg tablet 15 mg PO TID docusate sodium [Stool Softener] 100 mg capsule 100 mg PO BID Qty: 60 6RF metoclopramide HCl 5 mg tablet 5 mg PO TID Qty: 90 6RF sennosides [senna] 8.6 mg tablet 17.2 mg PO BEDTIME Qty: 60 6RF levothyroxine [Levoxyl] 88 mcg tablet 88 mcg PO DAILY Qty: 30 6RF Rx Instructions: PLEASE DO NOT PUT INTO PILL PACK! MUST BE ISOLATED AND TAKEN 1 HOUR BEFORE OTHER MEDICINES. omeprazole 20 mg capsule,delayed release(DR/EC) 20 mg PO BID Qty: 60 6RF Trulance 3 mg tablet 3 mg PO BEDTIME Qty: 30 12RF Referrals: Sariah Vickers NP [Primary Care Provider, Internal Medicine] - 12/21/24 Print Language: Urdu
[2024-12-18] MEDS: iohexoL 350 MG/ML 100 ML INFUS..BTL IV (08:13)
[2024-12-18 08:30] LABS: Appearance Urine Clear; Glucose Urine UA Negative (Negative); PH 7.0 (5.0-9.0); Specific Gravity - Urine 1.025 (1.005-1.025); UMIC TRIGGER UACC YES
[2024-12-18 08:45] LABS: UACC Culture Trigger YES
[2024-12-18 09:53] VITALS: BP 108/62; PULSE 76; RESP 18; TEMP 36.4; O2SAT 92
== END 2024-12-18 09:53 | disposition home or self-care (01) ==
PROVIDERS: Emergency Provider Emergency Medicine Emergency Medical Services; PCP Nurse Practitioner Primary Care
DX: U07.1 COVID-19 (principal); R07.89 Other chest pain; R10.23 Pelvic and perineal pain bilateral; I44.0 Atrioventricular block, first degree; R11.0 Nausea; Z79.899 Other long term (current) drug therapy
CPT/HCPCS: 71045; 74177; 80053; 81001; 83690; 85025; 87086; 87502; 87635; 93005; 96360; 99285; Q9967

== ENCOUNTER → 2024-12-18 05:48 | Outpatient (BNV) | payer OTHER, SELFPAY | PROVIDERS: Emergency Provider Emergency Medicine Emergency Medical Services; PCP Nurse Practitioner Primary Care; Visit Provider Internal Medicine | DX: I44.0 Atrioventricular block, first degree (principal) | CPT/HCPCS: 93010 ==

== ENCOUNTER → 2024-12-18 06:52 | Outpatient (BNV) | payer OTHER, SELFPAY | PROVIDERS: Emergency Provider Emergency Medicine Emergency Medical Services; PCP Nurse Practitioner Primary Care; Visit Provider Radiology Diagnostic Radiology | DX: R10.9 Unspecified abdominal pain (principal); J98.11 Atelectasis | CPT/HCPCS: 71045; 74177 ==

== ENCOUNTER 2024-12-22 09:25 | Outpatient (AMB) | payer OTHER, SELFPAY ==
--- OUTSIDE RECORDS SUMMARY | 2024-12-22 10:26 | XMS_ITS | Encounter Summary ---
Author Organization [employer] Address 75 [facility] 7t [place] [address] Care Team Providers Care Retail Manager Name Role Phone Sariah Vickers KAYLEE Primary Care Provider [phone] Yuri Pierre PharmD Unavailable [phone] Basilio Hall MD Unavailable [phone] Ron Preciado MD Unavailable [phone] Encounter Details Date Type Department Care Team (Latest Contact Info) Description 06/20/2021 Abstract [facility] CONVERSIONS Dental, Provider, DDS Social History [...] Care Team (Late st Contact Info) Description 12/27/2024 11:00 AM EST Medication Management [facility] [address] [place] [address] Yuri Pierre, PharmD 230 [place] [address] 01/07/2025 9:30 AM EST Clinical Support [facility] [address] [place] [address] Azeb Hall RN 505 [place] [address] 01/11/2025 1:00 PM EST Office Visit [facility] [address] [place] [address] Sariah Vickers ANP [address] [place] [address] 02/03/2025 11:00 AM EST Medication Management [address] [address] Yuri Pierre, Dileep [address] [place] [address] documented as of this encounter Visit Diagnoses Not on filedocumented in this encounter Care Teams Retail Manager Relationship Specialty Start Date End Date Sariah Vickers ANP [address] [place] [address] [phone] PCP - General Family Medicine 09/23/19 Yuri Pierre, PharmD [address] [place] [address] [phone] Pharmacist Internal Medicine 05/05/24 Basilio Hall MD 596 [place], [place] [phone] Cardiology 05/17/24 Ron Preciado MD [address] [place] [address] Pulmonary Disease 05/17/24 documented as of this encounter
--- OUTSIDE RECORDS SUMMARY | 2024-12-22 10:26 | XMS_ITS | Encounter Summary ---
Author Organization [employer] Address 75 [facility] 7t [place] [address] Care Team Providers Care Household Chores Name Role Phone Sariah Vickers KAYLEE Primary Care Provider [phone] Yuri Pierre PharmD Unavailable [phone] Basilio Hall MD Unavailable [phone] Ron Preciado MD Unavailable [phone] Encounter Details Date Type Department Care Team (Latest Contact Info) Description 04/14/2020 Abstract [facility] CONVERSIONS Dental, Provider, DDS Social History Tobacco [...] Description 12/27/2024 11:00 AM EST Medication Management [facility] MEDICINE [address] [place] [address] Yuri Pierre, PharmD 230 [place] [address] 01/07/2025 9:30 AM EST Clinical Support [facility] MEDICINE [address] [place] [address] Azeb Hall RN 505 [place] [address] 01/11/2025 1:00 PM EST Office Visit [facility] MEDICINE [address] [place] [address] Sariah Vickers ANP [address] [place] [address] 02/03/2025 11:00 AM EST Medication Management [address] [address] Yuri Pierre, Dileep [address] [place] [address] documented as of this encounter Visit Diagnoses Not on filedocumented in this encounter Care Teams Household Chores Relationship Specialty Start Date End Date Sariah Vickers ANP [address] [place] [address] [phone] PCP - General Family Medicine 09/23/19 Yuri Pierre, PharmD [address] [place] [address] [phone] Pharmacist Internal Medicine 05/05/24 Basilio Hall MD 596 [place], [place] [phone] Cardiology 05/17/24 Ron Preciado MD [address] [place] [address] Pulmonary Disease 05/17/24 documented as of this encounter
--- OUTSIDE RECORDS SUMMARY | 2024-12-22 10:26 | XMS_ITS | Encounter Summary ---
Author Organization [employer] Address [address] [place] [address] 7t [place] [address] Care Team Providers Care Flower Buncher Or Picker Name Role Phone Sariah Vickers Primary Care Provider [phone] Yuri Pierre PharmD Unavailable [phone] Basilio Hall MD Unavailable [phone] Ron Preciado MD Unavailable [phone] Reason for Visit * Reason Onset Date Comments Nurse Triage 11/01/2022 Encounter Details Date Type Department Care Team (Late st Contact Info) Description 11/01/2022 Telephone [facility] MED[facility]INE [address] [place] [address] Sariah Vickers ANP 230 [place] [address] Nurse Triage Social History Tobacco Use Types [...] 11/01/2022 3:51 PM EDT 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 with [employer] 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 ID [id number] Pt reports blood sugars have been high [...] Description 12/27/2024 11:00 AM EST Medication Management [facility] [address] [place] [address] Yuri Pierre, PharmD 230 [place] [address] 01/07/2025 9:30 AM EST Clinical Support [facility] [address] [place] [address] Azeb Hall RN [address] [place] [address] 01/11/2025 1:00 PM EST Office Visit [address] [address] Sariah Vickers ANP 230 [place] [address] 02/03/2025 11:00 AM EST Medication Management [address] [address] Yuri Pierre PharmD [address] [place] [address] documented as of this encounter Goals Goal Patient Goal Type Associated Problems Recent Progress Patient-Stated? Author Blood Pressure < 140/90 Blood Pressure 125/85(2024 12:36 PM EDT) No Aida Ragalnd PharmD Record Your Blood Sugar As Directed General No Aida Ragland PharmD Hemoglobin A1c < 7 Result Component 6.6( 1:54 PM EDT) No Aida Ragland PharmD documented as of this encounter Visit Diagnoses Not on filedocumented in this encounter Care Teams Flower Buncher Or Picker Relationship Specialty Start Date End Date Sariah Vickers ANP [address] [place] [address] PCP - General Family Medicine 09/23/19 Yuri Pierre, PharmD [address] [place] [address] Pharmacist Internal Medicine 05/05/24 Basilio Hall MD [address] [place] [address] Cardiology 05/17/24 Ron Preciado MD [address] [place] [address] Pulmonary Disease 05/17/24 documented as of this encounter
--- OUTSIDE RECORDS SUMMARY | 2024-12-22 10:26 | XMS_ITS | Encounter Summary ---
Author Organization [employer] Address 75 [facility] 7t [place] [address] Care Team Providers Care Cash Management Specialist Name Role Phone Sariah Vickers Primary Care Provider [phone] Yuri Pierre PharmD Unavailable [phone] Basilio Hall MD Unavailable [phone] Ron Preciado MD Unavailable [phone] Reason for Visit * Reason Comments Med Refill Encounter Details Date Type Department Care Team (Late st Contact Info) Description 12/02/2024 Refill [facility] [address] [place] [address] Sariah Vickers ANP 230 [place] [address] Type 2 diabetes mellitus with diabetic neuropathy, [...] Description 12/27/2024 11:00 AM EST Medication Management [address] [address] Yuri Pierre, PharmD [address] [place] [address] 01/07/2025 9:30 AM EST Clinical Support [address] [address] Azeb Hall, MARTIN 505 [place] [address] 01/11/2025 1:00 PM EST Office Visit [address] [address] Sariah Vickers ANP [address] [place] [address] 02/03/2025 11:00 AM EST Medication Management [address] [address] Yuri Pierre, MikeD 230 [place] [address] documented as of this encounter Goals Goal [...] documented as of this encounter Care Teams Cash Management Specialist Relationship Specialty Start Date End Date Sariah Vickers ANP [address] [place] [address] PCP - General Family Medicine 09/23/19 Yuri Pierre, PharmD [address] [place] [address] Pharmacist Internal Medicine 05/05/24 Basilio Hall MD [address] [place] [address] Cardiology 05/17/24 Ron Preciado MD [address] [place] [address] Pulmonary Disease 05/17/24 documented as of this encounter
--- OUTSIDE RECORDS SUMMARY | 2024-12-22 10:26 | XMS_ITS | Encounter Summary ---
Author Organization [employer] Address 75 [facility] 7t [place] [address] Care Team Providers Care Hand Blocker Name Role Phone Sariah Vickers Primary Care Provider [phone] Yuri Pierre PharmD Unavailable [phone] Basilio Hall MD Unavailable [phone] Ron Preciado MD Unavailable [phone] Reason for Visit * Reason Comments Med Refill Encounter Details Date Type Department Care Team (Late st Contact Info) Description 02/06/2022 Refill [facility] MED[facility]INE 230 [place] [address] Sariah Vickers ANP 230 [place] [address] Social History Tobacco Use Types Packs/Day Years [...] Description 12/27/2024 11:00 AM EST Medication Management [address] [address] Yuri Pierre, PharmD [address] [place] [address] 01/07/2025 9:30 AM EST Clinical Support [address] [address] Azeb Hall, RN 505 [place] [address] 01/11/2025 1:00 PM EST Office Visit [address] [address] Sariah Vickers ANP [address] [place] [address] 02/03/2025 11:00 AM EST Medication Management [address] [address] Yuri Pierre PharmD [address] [place] [address] documented as of this encounter Visit Diagnoses Not on filedocumented in this encounter Care Teams Hand Blocker Relationship Specialty Start Date End Date Sariah Vickers ANP [address] [place] [address] PCP - General Family Medicine 09/23/19 Yuri Pierre, PharmD [address] [place] [address] Pharmacist Internal Medicine 05/05/24 Basilio Hall MD [address] [place] [address] Cardiology 05/17/24 Ron Preciado MD [address] [place] [address] Pulmonary Disease 05/17/24 documented as of this encounter
--- OUTSIDE RECORDS SUMMARY | 2024-12-22 10:26 | XMS_ITS | Encounter Summary ---
Author Organization [employer] Address 75 [facility] 7t [place] [address] Care Team Providers Care Security Assessor Name Role Phone Sariah Vickers Primary Care Provider Yuri Pierre PharmD Unavailable [phone] Basilio Hall MD Unavailable [phone] Ron Preciado MD Unavailable [phone] Reason for Visit * Reason Comments Med Refill Encounter Details Date Type Department Care Team (Late st Contact Info) Description 08/22/2023 Refill [facility] MEDICINE 230 [place] [address] Sariah Vickers ANP 230 [place] [address] Neck pain Social History Tobacco Use Types [...] Description 12/27/2024 11:00 AM EST Medication Management [address] [address] Yuri Pierre, PharmD [address] [place] [address] 01/07/2025 9:30 AM EST Clinical Support [address] [address] Azeb Hall, MARTIN 505 [place] [address] 01/11/2025 1:00 PM EST Office Visit [address] [address] Sariah Vickers, KAYLEE [address] [place] [address] 02/03/2025 11:00 AM EST Medication Management [address] [address] Yuri Pierre, PharmD [address] [place] [address] documented as of this encounter Goals Goal [...] documented as of this encounter Care Teams Security Assessor Relationship Specialty Start Date End Date Sariah Vickers ANP 230 [place] [address] PCP - General Family Medicine 09/23/19 Yuri Pierre PharmD 230 [place] [address] Pharmacist Internal Medicine 05/05/24 Basilio Hall MD [address] [place] [address] Cardiology 05/17/24 Ron Preciado MD [address] [place] [address] Pulmonary Disease 05/17/24 documented as of this encounter
--- OUTSIDE RECORDS SUMMARY | 2024-12-22 10:26 | XMS_ITS | Encounter Summary ---
Author Organization [employer] Address 75 [facility] 7t [place] [address] Care Team Providers Care Brick Tosser Name Role Phone Sariah Vickers KAYLEE Primary Care Provider [phone] Yuri Pierre PharmD Unavailable [phone] Basilio Hall MD Unavailable [phone] Ron Preciado MD Unavailable [phone] Encounter Details Date Type Department Care Team (Latest Contact Info) Description 05/15/2018 Abstract [facility] CONVERSIONS Dental, Provider, DDS Social History Tobacco [...] 12/27/2024 11:00 AM EST Medication Management [address] [address] Yuri Pierre, PharmD [address] [place] [address] 01/07/2025 9:30 AM EST Clinical Support [address] [address] Azeb Hall, MARTIN 505 [place] [address] 01/11/2025 1:00 PM EST Office Visit [facility] [address] [place] [address] Sariah Vickers ANP [address] [place] [address] 02/03/2025 11:00 AM EST Medication Management [address] [address] Yuri Pierre, Dileep [address] [place] [address] documented as of this encounter Visit Diagnoses Not on filedocumented in this encounter Care Teams Brick Tosser Relationship Specialty Start Date End Date Sariah Vickers ANP [address] [place] [address] [phone] PCP - General Family Medicine 09/23/19 Yuri Pierre, PharmD [address] [place] [address] [phone] Pharmacist Internal Medicine 05/05/24 Basilio Hall MD [address] [place] [address] Cardiology 05/17/24 Ron Preciado MD [address] [place] [address] Pulmonary Disease 05/17/24 documented as of this encounter
--- OUTSIDE RECORDS SUMMARY | 2024-12-22 10:26 | XMS_ITS | Encounter Summary ---
Author Organization [employer] Address 75 [facility] 7t [place] [address] Care Team Providers Care Caramel Candy Maker Helper Name Role Phone Sariah Vickers Primary Care Provider [phone] Yuri Pierre PharmD Unavailable [phone] Basilio Hall MD Unavailable [phone] Ron Preciado MD Unavailable [phone] Encounter Details Date Type Department Care Team (Late st Contact Info) Description 11/23/2024 Orders Only [facility] MEDICINE 230 [place] [address] Sariah Vickers ANP 230 [place] [address] Social History Tobacco Use Types Packs/Day Years [...] Description 12/27/2024 11:00 AM EST Medication Management [address] [address] Yuri Pierre, Dileep [address] [place] [address] 01/07/2025 9:30 AM EST Clinical Support [address] [address] Azeb Hall, MARTIN 505 [place] [address] 01/11/2025 1:00 PM EST Office Visit [address] [address] Sariah Vickers ANP [address] [place] [address] 02/03/2025 11:00 AM EST Medication Management [address] [address] Yuri Pierre, PharmD [address] [place] [address] documented as of this encounter Goals Goal Patient Goal Type Associated Problems Recent Progress Patient-Stated? Author Blood Pressure < 140/90 Blood Pressure 125/85(2024 12:36 PM EDT) No Phanis-Dileepl Aida urbina, PharmD [...] documented as of this encounter Care Teams Caramel Candy Maker Helper Relationship Specialty Start Date End Date Sariah Vickers ANP 230 [place] [address] PCP - General Family Medicine 09/23/19 Yuri Pierre, MikeD 230 [place] [address] Pharmacist Internal Medicine 05/05/24 Basilio Hall MD 596 [place] [address] Cardiology 05/17/24 Ron Preciado MD [address] [place] [address] Pulmonary Disease 05/17/24 documented as of this encounter
--- OUTSIDE RECORDS SUMMARY | 2024-12-22 10:26 | XMS_ITS | Encounter Summary ---
Author Organization [employer] Address 75 [facility] 7t [place] [address] Care Team Providers Care Corporate Development Officer Name Role Phone Sariah Vickers Primary Care Provider [phone] Yuri Pierre PharmD Unavailable [phone] Basilio Hall MD Unavailable [phone] Ron Preciado MD Unavailable [phone] Reason for Visit * Reason Comments Med Refill Encounter Details Date Type Department Care Team (Late st Contact Info) Description 09/13/2022 Refill [facility] [address] [place] [address] Sariah Vickers ANP 230 [place] [address] Severe persistent allergic asthma without complication Social [...] Description 12/27/2024 11:00 AM EST Medication Management [address] [address] Yuri Pierre, Dileep [address] [place] [address] 01/07/2025 9:30 AM EST Clinical Support [address] [address] Azeb Hall RN 505 [place] [address] 01/11/2025 1:00 PM EST Office Visit [address] [address] Sariah Vickers ANP [address] [place] [address] 02/03/2025 11:00 AM EST Medication Management [address] [address] Yuri Pierre PharmD [address] [place] [address] documented as of this encounter Visit Diagnoses Diagnosis Severe persistent allergic asthma without complication (HCC) documented in this encounter Care Teams Corporate Development Officer Relationship Specialty Start Date End Date Sariah Vickers ANP [address] [place] [address] PCP - General Family Medicine 09/23/19 Yuri Pierre, PharmD [address] [place] [address] Pharmacist Internal Medicine 05/05/24 Basilio Hall MD [address] [place] [address] Cardiology 05/17/24 Ron Preciado MD [address] [place] [address] Pulmonary Disease 05/17/24 documented as of this encounter
--- OUTSIDE RECORDS SUMMARY | 2024-12-22 10:26 | XMS_ITS | Encounter Summary ---
Author Organization [employer] Address 75 [facility] 7t [place] [address] Care Team Providers Care Hedis Manager Name Role Phone Sariah Vickers Primary Care Provider [phone] Yuri Pierre PharmD Unavailable [phone] Basilio Hall MD Unavailable [phone] Ron Preciado MD Unavailable [phone] Encounter Details Date Type Department Care Team (Late Contact Info) Description 01/09/2022 Abstract [facility] AD[facility] D[facility]AL [address] [place] [address] Dental, Provider, DDS Social History Tobacco Use [...] Department Care Team (Late Contact Info) Description 12/27/2024 11:00 AM EST Medication Management [address] [address] Yuri Pierre, PharmD 230 [place] [address] 01/07/2025 9:30 AM EST Clinical Support [address] [address] Azeb Hall, MARTIN 505 [place] [address] 01/11/2025 1:00 PM EST Office Visit [facility] MEDICINE [address] [place] [address] Sariah Vickers ANP 230 [place] [address] 02/03/2025 11:00 AM EST Medication Management [facility] MEDICINE 230 [place] [address] Yuri Pierre, PharmD 230 [place] [address] documented as of this encounter Procedures Procedure [...] on filedocumented in this encounter Care Teams Hedis Manager Relationship Specialty Start Date End Date Sariah Vickers ANP 230 [place] [address] PCP - General Family Medicine 09/23/19 Yuri Pierre, MikeD 230 [place] [address] Pharmacist Internal Medicine 05/05/24 Basilio Hall MD 596 [place] [address] Cardiology 05/17/24 Ron Preciado MD [address] [place] [address] Pulmonary Disease 05/17/24 documented as of this encounter
--- OUTSIDE RECORDS SUMMARY | 2024-12-22 10:26 | XMS_ITS | Encounter Summary ---
Author Organization [employer] Address 75 [facility] 7t [place] [address] Care Team Providers Care Activity Manager Name Role Phone Sariah Vickers Primary Care Provider [phone] Yuri Pierre PharmD Unavailable [phone] Basilio Hall MD Unavailable [phone] Ron Preciado MD Unavailable [phone] Reason for Visit * Reason Comments Med Refill Encounter Details Date Type Department Care Team (Late st Contact Info) Description 12/07/2024 Refill [facility] 230 [place] [address] Sariah Vickers ANP 230 [place] [address] Social History Tobacco Use Types Packs/Day Years [...] Description 12/27/2024 11:00 AM EST Medication Management [address] [address] Yuri Pierre, MikeD [address] [place] [address] 01/07/2025 9:30 AM EST Clinical Support [address] [address] Azeb Hall, MARTIN 505 [place] [address] 01/11/2025 1:00 PM EST Office Visit [address] [address] Sariah Vickers, KAYLEE [address] [place] [address] 02/03/2025 11:00 AM EST Medication Management [address] [address] Yuri Pierre, PharmD [address] [place] [address] [place] [address] documented as of this encounter Goals Goal [...] as of this encounter Care Teams Activity Manager Relationship Specialty Start Date End Date Sariah Vickers ANP 230 [place] [address] PCP - General Family Medicine 09/23/19 Yuri Pierre, MikeD 230 [place] [address] Pharmacist Internal Medicine 05/05/24 Basilio Hall MD 596 [place] [address] Cardiology 05/17/24 Ron Preciado MD [address] [place] [address] Pulmonary Disease 05/17/24 documented as of this encounter
--- OUTSIDE RECORDS SUMMARY | 2024-12-22 10:27 | XMS_ITS | Encounter Summary ---
Author Organization [employer] Address 75 [facility] 7t [place] [address] Care Team Providers Care Bearing Maker Name Role Phone Sariah Vickers Primary Care Provider [phone] Yuri Pierre PharmD Unavailable [phone] Basilio Hall MD Unavailable [phone] Ron Preciado MD Unavailable [phone] Reason for Visit * Reason Onset Date Comments Med Refill 01/09/2024 Encounter Details Date Type Department Care Team (Late st Contact Info) Description 01/09/2024 Telephone [facility] MEDICINE 230 [place] [address] Sariah Vickers ANP 230 [place], [place] [phone] Med Refill Social History Tobacco Use Types [...] Description 12/27/2024 11:00 AM EST Medication Management [address] [address] Yuri Pierre, PharmD [address] [place] [address] 01/07/2025 9:30 AM EST Clinical Support [address] [address] Azeb Hall, RN [address] [place] [address] 01/11/2025 1:00 PM EST Office Visit [address] [address] Sariah Vickers, KAYLEE [address] [place] [address] 02/03/2025 11:00 AM EST Medication Management [address] [address] Yuri Pierre, PharmD [address] [place] [address] documented as of this encounter Goals Goal [...] documented as of this encounter Care Teams Bearing Maker Relationship Specialty Start Date End Date Sariah Vickers ANP [address] [place] [address] PCP - General Family Medicine 09/23/19 Yuri Pierre, MikeD [address] [place] [address] Pharmacist Internal Medicine 05/05/24 Basilio Hall MD [address] [place] [address] Cardiology 05/17/24 Ron Preciado MD [address] [place] [address] Pulmonary Disease 05/17/24 documented as of this encounter
--- OUTSIDE RECORDS SUMMARY | 2024-12-22 10:27 | XMS_ITS | Encounter Summary ---
Author Organization [employer] Address 75 [facility] 7t [place] [address] Care Team Providers Care System Safety Engineer Name Role Phone Sariah Vickers Primary Care Provider [phone] Yuri Pierre PharmD Unavailable [phone] Basilio Hall MD Unavailable [phone] Ron Preciado MD Unavailable [phone] Reason for Visit * Reason Onset Date Comments Med Refill 09/18/2023 Encounter Details Date Type Department Care Team (Late st Contact Info) Description 09/18/2023 Telephone [facility] 230 [place], [place] [phone] Sariah Vickers ANP 230 [place], [place] [phone] Med Refill Social History Tobacco Use Types [...] refill : Tramadol To be sent to: [facility] - [place], [place] - [address] [place] [address] documented in this encounter Plan of Treatment Upcoming Encounters Date Type Department Care Team ([facility] st Contact Info) Description 12/27/2024 11:00 AM EST Medication Management [address] [address] Yuri Pierre, PharmD [address] [place] [address] 01/07/2025 9:30 AM EST Clinical Support [address] [address] Azeb Hall RN 505 [place] [address] 01/11/2025 1:00 PM EST Office Visit [address] [address] Sariah Vickers ANP 230 [place] [address] 02/03/2025 11:00 AM EST Medication Management [facility] 230 [place] [address] Yuri Pierre, PharmD 230 [place] [address] documented as of this encounter Goals Goal [...] documented as of this encounter Care Teams System Safety Engineer Relationship Specialty Start Date End Date Sariah Vickers ANP 230 [place] [address] PCP - General Family Medicine 09/23/19 Yuri Pierre, PharmD 230 [place] [address] Pharmacist Internal Medicine 05/05/24 Basilio Hall MD 596 [place] [address] Cardiology 05/17/24 Ron Preciado MD [address] [place] [address] Pulmonary Disease 05/17/24 documented as of this encounter
--- OUTSIDE RECORDS SUMMARY | 2024-12-22 10:27 | XMS_ITS | Encounter Summary ---
Author Organization [employer] Address 75 [facility] 7t [place] [address] Care Team Providers Care Door Closer Name Role Phone Sariah Vickers Primary Care Provider [phone] Yrui Pierre PharmD Unavailable [phone] Basilio Hall MD Unavailable [phone] Ron Preciado MD Unavailable [phone] Reason for Visit * Reason Comments Med Refill Encounter Details Date Type Department Care Team (Late st Contact Info) Description 03/03/2022 Refill [facility] 230 [place] [address] Sariah Vickers ANP 230 [place] [address] Social History Tobacco Use Types Packs/Day Years [...] Description 12/27/2024 11:00 AM EST Medication Management [address] [address] Yuri Pierre PharmD [address] [place] [address] 01/07/2025 9:30 AM EST Clinical Support [address] [address] Azeb Hall RN [address] [place] [address] 01/11/2025 1:00 PM EST Office Visit [address] [address] Sariah Vickers ANP [address] [place] [address] 02/03/2025 11:00 AM EST Medication Management [address] [address] Yuri Pierre PharmD [address] [place] [address] documented as of this encounter Visit Diagnoses Not on filedocumented in this encounter Care Teams Door Closer Relationship Specialty Start Date End Date Sariah Vickers ANP [address] [place] [address] PCP - General Family Medicine 09/23/19 Yuri Pierre, Dileep [address] [place] [address] Pharmacist Internal Medicine 05/05/24 Basilio Hall MD 596 [place] [address] Cardiology 05/17/24 Ron Preciado MD [address] [place] [address] Pulmonary Disease 05/17/24 documented as of this encounter
--- OUTSIDE RECORDS SUMMARY | 2024-12-22 10:27 | XMS_ITS | Encounter Summary ---
Author Organization [employer] Address 75 [facility] 7t [place] [address] Care Team Providers Care Centrex Radio Operator Name Role Phone Sariah Vickers Primary Care Provider [phone] Yuri Pierre PharmD Unavailable [phone] Basilio Hall MD Unavailable [phone] Ron Preciado MD Unavailable [phone] Reason for Visit * Reason Comments Med Refill Encounter Details Date Type Department Care Team (Late st Contact Info) Description 03/26/2022 Refill [facility] 230 [place] [address] Sariah Vickers ANP 230 [place] [address] Social History Tobacco Use Types Packs/Day Years [...] Description 12/27/2024 11:00 AM EST Medication Management [address] [address] Yuri Pierre, PharmD [address] [place] [address] 01/07/2025 9:30 AM EST Clinical Support [address] [address] Azeb Hall, RN 505 [place] [address] 01/11/2025 1:00 PM EST Office Visit [address] [address] Sariah Vickers ANP [address] [place] [address] 02/03/2025 11:00 AM EST Medication Management [address] [address] Yuri Pierre PharmD [address] [place] [address] documented as of this encounter Visit Diagnoses Not on filedocumented in this encounter Care Teams Centrex Radio Operator Relationship Specialty Start Date End Date Sariah Vickers ANP [address] [place] [address] PCP - General Family Medicine 09/23/19 Yuri Pierre, PharmD [address] [place] [address] Pharmacist Internal Medicine 05/05/24 Basilio Hall MD 596 [place] [address] Cardiology 05/17/24 Ron Preciado MD [address] [place] [address] Pulmonary Disease 05/17/24 documented as of this encounter
--- OUTSIDE RECORDS SUMMARY | 2024-12-22 10:27 | XMS_ITS | Encounter Summary ---
Author Organization [employer] Address 75 [facility] 7t [place] [address] Care Team Providers Care Buttonholer Name Role Phone Sariah Vickers Primary Care Provider [phone] Yuri Pierre PharmD Unavailable [phone] Basilio Hall MD Unavailable [phone] Ron Preciado MD Unavailable [phone] Encounter Details Date Type Department Care Team (Late st Contact Info) Description 10/20/2024 Results Follow-Up [facility] 230 [place] [address] Sariah Vickers ANP 230 [place] [address] Prothrombin Time-INR, C-reactive Protein, Amylase, Additional followed-up [...] Description 12/27/2024 11:00 AM EST Medication Management [address] [address] Yuri Pierre, PharmD [address] [place] [address] 01/07/2025 9:30 AM EST Clinical Support [address] [address] Azeb Hall RN 505 [place] [address] 01/11/2025 1:00 PM EST Office Visit [address] [address] Sariah Vickers ANP 230 [place] [address] 02/03/2025 11:00 AM EST Medication Management [facility] 230 [place] [address] Yuri Pierre, Dileep 230 [place] [address] documented as of this encounter Goals Goal [...] documented as of this encounter Care Teams Buttonholer Relationship Specialty Start Date End Date Sariah Vickers ANP 230 [place] [address] PCP - General Family Medicine 09/23/19 Yuri Pierre, PharmD [address] [place] [address] Pharmacist Internal Medicine 05/05/24 Basilio Hall MD 596 [place] [address] Cardiology 05/17/24 Ron Preciado MD [address] [place] [address] Pulmonary Disease 05/17/24 documented as of this encounter
--- OUTSIDE RECORDS SUMMARY | 2024-12-22 10:27 | XMS_ITS | Encounter Summary ---
Author Organization [employer] Address 75 [facility] 7t [place] [address] Care Team Providers Care Business Center Representative Name Role Phone Sariah Vickers Primary Care Provider [phone] Yuri Pierre PharmD Unavailable [phone] Basilio Hall MD Unavailable [phone] Ron Preciado MD Unavailable [phone] Reason for Visit * Reason Comments Med Refill Encounter Details Date Type Department Care Team (Late st Contact Info) Description 11/24/2023 Refill [facility] 230 [place] [address] Sariah Vickers ANP 230 [place] [address] Vertigo Social History Tobacco Use Types Packs/Day [...] 12/27/2024 11:00 AM EST Medication Management [address] [address] Yuri Pierre, PharmD [address] [place] [address] 01/07/2025 9:30 AM EST Clinical Support [address] [address] Azeb Hall, MARTIN 505 [place] [address] 01/11/2025 1:00 PM EST Office Visit [address] [address] Sariah Vickers, KAYLEE [address] [place] [address] 02/03/2025 11:00 AM EST Medication Management [address] [address] Yuri Pierre, PharmD [address] [place] [address] documented as of this encounter Goals Goal [...] Date End Date Sariah Vickers ANP [address] [place] [address] PCP - General Family Medicine 09/23/19 Yuri Pierre, MikeD [address] [place] [address] Pharmacist Internal Medicine 05/05/24 Basilio Hall MD [address] [place] [address] Cardiology 05/17/24 Ron Preciado MD [address] [place] [address] Pulmonary Disease 05/17/24 documented as of this encounter
--- OUTSIDE RECORDS SUMMARY | 2024-12-22 10:27 | XMS_ITS | Encounter Summary ---
Author Organization [employer] Address 75 [facility] 7t [place] [address] Care Team Providers Care Software Configuration Manager Name Role Phone Sariah Vickers Primary Care Provider [phone] Yuri Pierre PharmD Unavailable [phone] Basilio Hall MD Unavailable [phone] Ron Preciado MD Unavailable [phone] Reason for Visit * Reason Comments Med Refill Encounter Details Date Type Department Care Team (Late st Contact Info) Description 01/04/2024 Refill [facility] [address] [place] [address] Sariah Vickers ANP 230 [place] [address] Cervicalgia Social History Tobacco Use Types Packs/Day [...] Description 12/27/2024 11:00 AM EST Medication Management [address] [address] Yuri Pierre, PharmD [address] [place] [address] 01/07/2025 9:30 AM EST Clinical Support [address] [address] Azeb Hall, MARTIN 505 [place] [address] 01/11/2025 1:00 PM EST Office Visit [address] [address] Sariah Vickers, KAYLEE [address] [place] [address] 02/03/2025 11:00 AM EST Medication Management [address] [address] Yuri Pierre, PharmD [address] [place] [address] documented as of this encounter Goals Goal [...] as of this encounter Care Teams Software Configuration Manager Relationship Specialty Start Date End Date Sariah Vickers ANP 230 [place] [address] PCP - General Family Medicine 09/23/19 Yuri Pierre PharmD 230 [place] [address] Pharmacist Internal Medicine 05/05/24 Basilio Hall MD [address] [place] [address] Cardiology 05/17/24 Ron Preciado MD [address] [place] [address] Pulmonary Disease 05/17/24 documented as of this encounter
--- OUTSIDE RECORDS SUMMARY | 2024-12-22 10:27 | XMS_ITS | Encounter Summary ---
Author Organization [employer] Address 75 [facility] 7t [place] [address] Care Team Providers Care Clergy Member Name Role Phone Sariah Vickers Primary Care Provider [phone] Yuri Pierre PharmD Unavailable [phone] Basilio Hall MD Unavailable [phone] Ron Preciado MD Unavailable [phone] Reason for Visit * Reason Onset Date Comments Results 12/09/2024 Encounter Details Date Type Department Care Team (Late st Contact Info) Description 12/09/2024 Telephone [facility] 230 [place], [place] [phone] Sariah Vickers ANP 230 [place], [place] [phone] Results Social History Tobacco Use Types Packs/Day [...] Telephone Encounter - Candy Bains RN - 12/21/2024 1:54 PM EST Telephone call returned to pt utilizing BLS #[id number]. Informed labs looked good, no acute or concerning findings. Pt verbalized understanding and denied having any further questions or concerns at thistime. No concerning findings on labs I see from 12/08, abnormalities likely transient * Telephone Encounter - Alyx Son - 12/09/2024 12:40 PM EDT TC from pt requesting call back regarding Results. Type of results: lab results Date when done: 12/08 Facility: [facility] [place] Contact pt at [phone] (turkish) documented in this encounter Plan of Treatment Upcoming Encounters Date Type Department Care Team ([facility] st Contact Info) Description 12/27/2024 11:00 AM EST Medication Management [address] [phone] Yuri Pierre PharmD [address] [place] [address] 01/07/2025 9:30 AM EST Clinical Support [address] [phone] Azeb Hall RN 505 [place] [address] 01/11/2025 1:00 PM EST Office Visit [address] [phone] Sariah Vickers ANP [address] [place] [address] 02/03/2025 11:00 AM EST Medication Management [address] [phone] Yuri Pierre PharmD [address] [place] [address] documented as of this encounter Goals Goal [...] documented as of this encounter Care Teams Clergy Member Relationship Specialty Start Date End Date Sariah Vickers ANP [address] [place] [address] PCP - General Family Medicine 09/23/19 Yuri Pierre PharmD [address] [place] [address] Pharmacist Internal Medicine 05/05/24 Basilio Hall MD 596 [place] [address] Cardiology 05/17/24 Ron Preciado MD [address] [place] [address] Pulmonary Disease 05/17/24 documented as of this encounter
--- OUTSIDE RECORDS SUMMARY | 2024-12-22 10:27 | XMS_ITS | Encounter Summary ---
Author Organization [employer] Address 75 [facility] 7t [place] [address] Care Team Providers Care Pile Driving Supervisor Name Role Phone Sariah Vickers Primary Care Provider Yuri Pierre PharmD Unavailable [phone] Basilio Hall MD Unavailable [phone] Ron Preciado MD Unavailable [phone] Reason for Visit * Reason Comments Med Refill Encounter Details Date Type Department Care Team (Late st Contact Info) Description 11/14/2023 Refill [facility] 230 [place] [address] Sariah Vickers ANP 230 [place] [address] Neck pain Social History Tobacco Use Types [...] Description 12/27/2024 11:00 AM EST Medication Management [address] [address] Yuri Pierre, PharmD [address] [place] [address] 01/07/2025 9:30 AM EST Clinical Support [address] [address] Azeb Hall, MARTIN 505 [place] [address] 01/11/2025 1:00 PM EST Office Visit [address] [address] Sariah Vickers, KAYLEE [address] [place] [address] 02/03/2025 11:00 AM EST Medication Management [address] [address] Yuri Pierre, PharmD [address] [place] [address] documented as of this encounter Goals Goal [...] documented as of this encounter Care Teams Pile Driving Supervisor Relationship Specialty Start Date End Date Sariah Vickers ANP 230 [place] [address] PCP - General Family Medicine 09/23/19 Yuri Pierre PharmD 230 [place] [address] Pharmacist Internal Medicine 05/05/24 Basilio Hall MD [address] [place] [address] Cardiology 05/17/24 Ron Preciado MD [address] [place] [address] Pulmonary Disease 05/17/24 documented as of this encounter
--- OUTSIDE RECORDS SUMMARY | 2024-12-22 10:27 | XMS_ITS | Encounter Summary ---
Author Organization [employer] Address 75 [facility] 7t [place] [address] Care Team Providers Care Manhole Stripper Name Role Phone Sariah Vickers Primary Care Provider [phone] Yuri Pierre PharmD Unavailable [phone] Basilio Hall MD Unavailable [phone] Ron Preciado MD Unavailable [phone] Reason for Visit * Reason Comments Med Refill Encounter Details Date Type Department Care Team (Late st Contact Info) Description 11/26/2023 Refill [facility] 230 [place] [address] Sariah Vickers ANP 230 [place] [address] Vertigo Social History Tobacco Use Types Packs/Day [...] Description 12/27/2024 11:00 AM EST Medication Management [address] [address] Yuri Pierre, PharmD [address] [place] [address] 01/07/2025 9:30 AM EST Clinical Support [address] [address] Azeb Hall, MARTIN 505 [place] [address] 01/11/2025 1:00 PM EST Office Visit [address] [address] Sariah Vickers, KAYLEE [address] [place] [address] 02/03/2025 11:00 AM EST Medication Management [address] [address] Yuri Pierre, PharmD [address] [place] [address] documented as of this encounter Goals Goal [...] documented as of this encounter Care Teams Manhole Stripper Relationship Specialty Start Date End Date Sariah Vickers ANP [address] [place] [address] PCP - General Family Medicine 09/23/19 Yuri Pierre, MikeD [address] [place] [address] Pharmacist Internal Medicine 05/05/24 Basilio Hall MD [address] [place] [address] Cardiology 05/17/24 Ron Preciado MD [address] [place] [address] Pulmonary Disease 05/17/24 documented as of this encounter
--- OUTSIDE RECORDS SUMMARY | 2024-12-22 10:27 | XMS_ITS | Encounter Summary ---
Author Organization [employer] Address 75 [facility] 7t [place] [address] Care Team Providers Care Wall Taper Name Role Phone Sariah Vickers Primary Care Provider [phone] Yuri Pierre PharmD Unavailable [phone] Basilio Hall MD Unavailable [phone] Ron Preciado MD Unavailable [phone] Reason for Visit * Reason Comments Med Refill Patient walked [facility] hasn't finished her Medbox due to missing refill for medication Gabapetin . Encounter Details Date Type Department Care Team (Late st Contact Info) Description 10/03/2023 Refill [facility] 230 [place], [place] [phone] Sariah Vickers ANP 230 [place], [place] [phone] Chronic SI joint pain Social History Tobacco [...] the past 12 months, has t he [employer] oil or [employer] company threatened to [...] Description 12/27/2024 11:00 AM EST Medication Management [address] [address] Yuri Pierre, PharmD [address] [place] [address] 01/07/2025 9:30 AM EST Clinical Support [address] [address] Azeb Hall, MARTIN 505 [place] [address] 01/11/2025 1:00 PM EST Office Visit [address] [address] Sariah Vickers ANP 230 [place] [address] 02/03/2025 11:00 AM EST Medication Management [facility] 230 [place] [address] Yuri Pierre, MikeD 230 [place] [address] documented as of this encounter Goals Goal [...] documented as of this encounter Care Teams Wall Taper Relationship Specialty Start Date End Date Sariah Vickers ANP [address] [place] [address] PCP - General Family Medicine 09/23/19 Yuri Pierre, PharmD [address] [place] [address] Pharmacist Internal Medicine 05/05/24 Basilio Hall MD 596 [place] [address] Cardiology 05/17/24 Ron Preciado MD [address] [place] [address] Pulmonary Disease 05/17/24 documented as of this encounter
--- OUTSIDE RECORDS SUMMARY | 2024-12-22 10:27 | XMS_ITS | Encounter Summary ---
Author Organization [employer] Address 75 [facility] 7t [place] [address] Care Team Providers Care Fluid Designer Name Role Phone Sariah Vickers Primary Care Provider [phone] Yuri Pierre PharmD Unavailable [phone] Basilio Hall MD Unavailable [phone] Ron Preciado MD Unavailable [phone] Reason for Visit * Reason Onset Date Comments Durable Medical Equipment 03/15/2022 Encounter Details Date Type Department Care Team (Late st Contact Info) Description 03/15/2022 Telephone [facility] 230 [place] [address] Sariah Vickers ANP 230 [place] [address] Durable Medical Equipment Social History Tobacco Use [...] 12/27/2024 11:00 AM EST Medication Management [address] [address] Yuri Pierre, Dileep [address] [place] [address] 01/07/2025 9:30 AM EST Clinical Support [address] [address] Azeb Hall, MARTIN 505 [place] [address] 01/11/2025 1:00 PM EST Office Visit [address] [address] Sariah Vickers ANP [address] [place] [address] 02/03/2025 11:00 AM EST Medication Management [address] [address] Yuri Pierre, PharmD [address] [place] [address] documented as of this encounter Visit Diagnoses Not on filedocumented in this encounter Care Teams Fluid Designer Relationship Specialty Start Date End Date Sariah Vickers ANP [address] [place] [address] PCP - General Family Medicine 09/23/19 Yuri Pierre, MikeD 230 [place] [address] Pharmacist Internal Medicine 05/05/24 Basilio Hall MD 596 [place] [address] Cardiology 05/17/24 Ron Preciado MD [address] [place] [address] Pulmonary Disease 05/17/24 documented as of this encounter
--- OUTSIDE RECORDS SUMMARY | 2024-12-22 10:27 | XMS_ITS | Encounter Summary ---
Author Organization [employer] Address 75 [facility] 7t [place] [address] Care Team Providers Care Psychiatric Aides Teacher Name Role Phone Sariah Vickers Primary Care Provider [phone] Yuri Pierre PharmD Unavailable [phone] Basilio Hall MD Unavailable [phone] Ron Preciado MD Unavailable [phone] Reason for Visit * Reason Comments Med Refill Encounter Details Date Type Department Care Team (Late st Contact Info) Description 06/17/2024 Refill [facility] 230 [place] [address] Sariah Vickers ANP 230 [place], [place] [phone] Neck pain Social History Tobacco Use Types [...] Description 12/27/2024 11:00 AM EST Medication Management [address] [address] Yuri Pierre, PharmD [address] [place] [address] 01/07/2025 9:30 AM EST Clinical Support [address] [address] Azeb Hall, MARTIN 505 [place] [address] 01/11/2025 1:00 PM EST Office Visit [address] [address] Sariah Vickers, KAYLEE [address] [place] [address] 02/03/2025 11:00 AM EST Medication Management [address] [address] Yuri Pierre, PharmD [address] [place] [address] documented as of this encounter Goals Goal [...] documented as of this encounter Care Teams Psychiatric Aides Teacher Relationship Specialty Start Date End Date Sariah Vickers ANP 230 [place] [address] PCP - General Family Medicine 09/23/19 Yuri Pierre, MikeD [address] [place] [address] Pharmacist Internal Medicine 05/05/24 Basilio Hall MD [address] [place] [address] Cardiology 05/17/24 Ron Preciado MD [address] [place] [address] Pulmonary Disease 05/17/24 documented as of this encounter
--- OUTSIDE RECORDS SUMMARY | 2024-12-22 10:27 | XMS_ITS | Encounter Summary ---
Author Organization [employer] Address 75 [facility] 7t [place] [address] Care Team Providers Care Bicycle Subassembler Name Role Phone Sariah Vickers Primary Care Provider [phone] Yuri Pierre PharmD Unavailable [phone] Basilio Hall MD Unavailable [phone] Ron Preciado MD Unavailable [phone] Reason for Visit * Reason Comments Med Refill Encounter Details Date Type Department Care Team (Late st Contact Info) Description 01/06/2024 Refill [facility] MED & PEDS [address] [place] [address] Sariah Vickers ANP 230 [place] [address] Cervicalgia Social History Tobacco Use Types Packs/Day [...] Description 12/27/2024 11:00 AM EST Medication Management [address] [address] Yuri Pierre, PharmD [address] [place] [address] 01/07/2025 9:30 AM EST Clinical Support [address] [address] Azeb Hall, MARTIN 505 [place] [address] 01/11/2025 1:00 PM EST Office Visit [address] [address] Sariah Vickers, KAYLEE [address] [place] [address] 02/03/2025 11:00 AM EST Medication Management [address] [address] Yuri Pierre, PharmD [address] [place] [address] documented as of this encounter Goals Goal [...] as of this encounter Care Teams Bicycle Subassembler Relationship Specialty Start Date End Date Sariah Vickers ANP 230 [place] [address] PCP - General Family Medicine 09/23/19 Yuri Pierre PharmD 230 [place] [address] Pharmacist Internal Medicine 05/05/24 Basilio Hall MD [address] [place] [address] Cardiology 05/17/24 Ron Preciado MD [address] [place] [address] Pulmonary Disease 05/17/24 documented as of this encounter
--- OUTSIDE RECORDS SUMMARY | 2024-12-22 10:27 | XMS_ITS | Encounter Summary ---
Author Organization [employer] Address 75 [facility] 7t [place] [address] Care Team Providers Care Track Patrol Name Role Phone Sariah Vickers Primary Care Provider [phone] Yuri Pierre PharmD Unavailable [phone] Basilio Hall MD Unavailable [phone] Ron Preciado MD Unavailable [phone] Reason for Visit * Reason Onset Date Comments Med Refill 02/04/2024 Encounter Details Date Type Department Care Team (Late st Contact Info) Description 02/04/2024 Telephone [facility] MEDICINE [address] [place] [address] Sariah Vickers ANP 230 [place], [place] [phone] Med Refill Social History Tobacco Use Types [...] 50 MG tablet To be sent to: [facility] - [place], [place] - [address] [place] [address] documented in this encounter Plan of Treatment Upcoming Encounters Date Type Department Care Team ([facility] st Contact Info) Description 12/27/2024 11:00 AM EST Medication Management [address] [address] Yuri Pierre, PharmD [address] [place] [address] 01/07/2025 9:30 AM EST Clinical Support [address] [address] Azeb Hall RN 505 [place] [address] 01/11/2025 1:00 PM EST Office Visit [address] [phone] Sariah Vickers ANP 230 [place] [address] 02/03/2025 11:00 AM EST Medication Management [facility] MEDICINE [address] [place] [address] Yuri Pierre, PharmBear 230 [place] [address] documented as of this encounter Goals Goal [...] documented as of this encounter Care Teams Track Patrol Relationship Specialty Start Date End Date Sariah Vickers ANP 230 [place] [address] PCP - General Family Medicine 09/23/19 Yuri Pierre, PharmD 230 [place] [address] Pharmacist Internal Medicine 05/05/24 Basilio Hall MD 5[address] [place] [address] Cardiology 05/17/24 Ron Preciado MD [address] [place] [address] Pulmonary Disease 05/17/24 documented as of this encounter
--- OUTSIDE RECORDS SUMMARY | 2024-12-22 10:27 | XMS_ITS | Encounter Summary ---
Author Organization [employer] Address 75 [facility] 7t [place] [address] Care Team Providers Care Director Of Acquisitions Name Role Phone Sariah Vickers Primary Care Provider [phone] Yuri Pierre PharmD Unavailable [phone] Basilio Hall MD Unavailable [phone] Ron Preciado MD Unavailable [phone] Reason for Visit * Reason Comments Med Refill Encounter Details Date Type Department Care Team (Late st Contact Info) Description 01/06/2024 Refill [facility] CHC MED & PEDS [address] [place] [address] Sariah Vickers ANP 230 [place] [address] Cervicalgia Social History Tobacco Use Types Packs/Day [...] 12/27/2024 11:00 AM EST Medication Management [address] [address] Yuri Pierre, PharmD [address] [place] [address] 01/07/2025 9:30 AM EST Clinical Support [address] [address] Azeb Hall, MARTIN 505 [place] [address] 01/11/2025 1:00 PM EST Office Visit [address] [address] Sariah Vickers, KAYLEE [address] [place] [address] 02/03/2025 11:00 AM EST Medication Management [address] [address] Yuri Pierre, PharmD [address] [place] [address] documented as of this encounter Goals Goal [...] of this encounter Care Teams Director Of Acquisitions Relationship Specialty Start Date End Date Sariah Vickers ANP 230 [place] [address] PCP - General Family Medicine 09/23/19 Yuri Pierre PharmD 230 [place] [address] Pharmacist Internal Medicine 05/05/24 Basilio Hall MD [address] [place] [address] Cardiology 05/17/24 Ron Preciado MD [address] [place] [address] Pulmonary Disease 05/17/24 documented as of this encounter
--- OUTSIDE RECORDS SUMMARY | 2024-12-22 10:27 | XMS_ITS | Encounter Summary ---
Author Organization [employer] Address 75 [facility] 7t [place] [address] Care Team Providers Care Business Services Manager Name Role Phone Sariah Vickers Primary Care Provider [phone] Yuri Pierre PharmD Unavailable [phone] Basilio Hall MD Unavailable [phone] Ron Preciado MD Unavailable [phone] Encounter Details Date Type Department Care Team (Late st Contact Info) Description 02/05/2022 Abstract [facility] MEDICINE 230 [place] [address] Sariah Vickers ANP 230 [place] [address] Social History Tobacco Use Types Packs/Day Years [...] Description 12/27/2024 11:00 AM EST Medication Management [address] [address] Yuri Pierre PharmD [address] [place] [address] 01/07/2025 9:30 AM EST Clinical Support [address] [address] Azeb Hall, RN 505 [place] [address] 01/11/2025 1:00 PM EST Office Visit [address] [address] Sariah Vickers ANP [address] [place] [address] 02/03/2025 11:00 AM EST Medication Management [address] [address] Yuri Pierre, MikeD [address] [place] [address] documented as of this encounter Visit Diagnoses Not on filedocumented in this encounter Care Teams Business Services Manager Relationship Specialty Start Date End Date Sariah Vickers ANP [address] [place] [address] PCP - General Family Medicine 09/23/19 Yuri Pierre, MikeD 230 [place] [address] Pharmacist Internal Medicine 05/05/24 Basilio Hall MD [address] [place] [address] Cardiology 05/17/24 Ron Preciado MD [address] [place] [address] Pulmonary Disease 05/17/24 documented as of this encounter
--- OUTSIDE RECORDS SUMMARY | 2024-12-22 10:27 | XMS_ITS | Encounter Summary ---
Author Organization [employer] Address 75 [facility] 7t [place] [address] Care Team Providers Care Client Development Consultant Name Role Phone Sariah Vickers Primary Care Provider [phone] Yuri Pierre PharmD Unavailable [phone] Basilio Hall MD Unavailable [phone] Ron Preciado MD Unavailable [phone] Reason for Visit * Reason Comments Med Refill Encounter Details Date Type Department Care Team (Late st Contact Info) Description 03/09/2024 Refill [facility] CH[facility] MED & PEDS [address] [place] [address] Sariah Vickers ANP 230 [place] [address] Neck pain Social History Tobacco Use Types [...] Description 12/27/2024 11:00 AM EST Medication Management [address] [address] Yuri Pierre, PharmD [address] [place] [address] 01/07/2025 9:30 AM EST Clinical Support [address] [address] Azeb Hall, MARTIN 505 [place] [address] 01/11/2025 1:00 PM EST Office Visit [address] [address] Sariah Vickers, KAYLEE [address] [place] [address] 02/03/2025 11:00 AM EST Medication Management [address] [address] Yuri Pierre, PharmD [address] [place] [address] documented as of this encounter Goals Goal [...] as of this encounter Care Teams Client Development Consultant Relationship Specialty Start Date End Date Sariah Vickers ANP 230 [place] [address] PCP - General Family Medicine 09/23/19 Yuri Pierre, MikeD [address] [place] [address] Pharmacist Internal Medicine 05/05/24 Basilio Hall MD [address] [place] [address] Cardiology 05/17/24 Ron Preciado MD [address] [place] [address] Pulmonary Disease 05/17/24 documented as of this encounter
--- OUTSIDE RECORDS SUMMARY | 2024-12-22 10:27 | XMS_ITS | Encounter Summary ---
Author Organization [employer] Address 75 [facility] 7t [place] [address] Care Team Providers Care Supervisor Wet End Name Role Phone Sariah Vickers Primary Care Provider [phone] Yuri Pierre PharmD Unavailable [phone] Basilio Hall MD Unavailable [phone] Ron Preciado MD Unavailable [phone] Reason for Visit * Reason Comments Med Refill Encounter Details Date Type Department Care Team (Late st Contact Info) Description 12/12/2024 Refill [facility] MED & PEDS [address] [place] [address] Sariah Vickers ANP 230 [place] [address] Cervicalgia Social History Tobacco Use Types Packs/Day [...] Description 12/27/2024 11:00 AM EST Medication Management [address] [address] Yuri Pierre, MikeD [address] [place] [address] 01/07/2025 9:30 AM EST Clinical Support [address] [address] Azeb Hall, MARTIN 505 [place] [address] 01/11/2025 1:00 PM EST Office Visit [address] [address] Sariah Vickers ANP [address] [place] [address] 02/03/2025 11:00 AM EST Medication Management [address] [address] Yuri Pierre, PharmD 230 [place] [address] documented as of this encounter [...] as of this encounter Care Teams Supervisor Wet End Relationship Specialty Start Date End Date Sariah Vickers ANP 230 [place] [address] PCP - General Family Medicine 09/23/19 Yuri Pierre, MikeD 230 [place] [address] Pharmacist Internal Medicine 05/05/24 Basilio Hall MD [address] [place] [address] Cardiology 05/17/24 Ron Preciado MD [address] [place] [address] Pulmonary Disease 05/17/24 documented as of this encounter
--- OUTSIDE RECORDS SUMMARY | 2024-12-22 10:27 | XMS_ITS | Encounter Summary ---
Author Organization [employer] Address 75 [facility] 7t [place] [address] Care Team Providers Care Product Picker Name Role Phone Sariah Vickers Primary Care Provider [phone] Yuri Pierre PharmD Unavailable [phone] Basilio Hall MD Unavailable [phone] Ron Preciado MD Unavailable [phone] Reason for Visit * Reason Comments Med Refill Pt wants to know if she can keep taking prednis Encounter Details Date Type Department Care Team (Late st Contact Info) Description 06/26/2024 Refill [facility] CHC MED & PEDS [address] [place] [address] Sariah Vickers ANP 230 [place] [address] Cervicalgia Social History Tobacco Use Types Packs/Day [...] 12/27/2024 11:00 AM EST Medication Management [address] [address] Yuri Pierre, PharmD [address] [place] [address] 01/07/2025 9:30 AM EST Clinical Support [address] [address] Azeb Hall, MARTIN [address] [place] [address] 01/11/2025 1:00 PM EST Office Visit [address] [address] Sariah Vickers, KAYLEE [address] [place] [address] 02/03/2025 11:00 AM EST Medication Management [address] [address] Yuri Pierre, PharmD [address] [place] [address] documented as of this encounter Goals Goal [...] as of this encounter Care Teams Product Picker Relationship Specialty Start Date End Date Sariah Vickers ANP 230 [place] [address] PCP - General Family Medicine 09/23/19 Yuri Pierre, MikeD 230 [place] [address] Pharmacist Internal Medicine 05/05/24 Basilio Hall MD 596 [place] [address] Cardiology 05/17/24 Ron Preciado MD [address] [place] [address] Pulmonary Disease 05/17/24 documented as of this encounter
--- OUTSIDE RECORDS SUMMARY | 2024-12-22 10:27 | XMS_ITS | Encounter Summary ---
Author Organization [employer] Address 75 [facility] 7t [place] [address] Care Team Providers Care Looper Operator Name Role Phone Sariah Vickers Primary Care Provider [phone] Yuri Pierre PharmD Unavailable [phone] Basilio Hall MD Unavailable [phone] Ron Preciado MD Unavailable [phone] Reason for Visit * Reason Comments Med Refill Encounter Details Date Type Department Care Team (Late st Contact Info) Description 10/03/2023 Refill [facility] 230 [place] [address] Sariah Vickers ANP 230 [place], [place] [phone] Chronic SI joint pain Social History Tobacco [...] Description 12/27/2024 11:00 AM EST Medication Management [address] [address] Yuri Pierre, PharmD [address] [place] [address] 01/07/2025 9:30 AM EST Clinical Support [address] [address] Azeb Hall, MARTIN 505 [place] [address] 01/11/2025 1:00 PM EST Office Visit [address] [address] Sariah Vickers, ANP [address] [place] [address] 02/03/2025 11:00 AM EST Medication Management [address] [address] Yuri Pierre, PharmD [address] [place] [address] documented as of this encounter Goals Goal [...] documented as of this encounter Care Teams Looper Operator Relationship Specialty Start Date End Date Sariah Vickers ANP 230 [place] [address] PCP - General Family Medicine 09/23/19 Yuri Pierre, MikeD 230 [place] [address] Pharmacist Internal Medicine 05/05/24 Basilio Hall MD [address] [place] [address] Cardiology 05/17/24 Ron Preciado MD [address] [place] [address] Pulmonary Disease 05/17/24 documented as of this encounter
--- OUTSIDE RECORDS SUMMARY | 2024-12-22 10:27 | XMS_ITS | Encounter Summary ---
Author Organization [email or web address] Address 75 [facility] 7t [place] [address] Care Team Providers Care Project Management Intern Name Role Phone Sariah Vickers Primary Care Provider [phone] Yuri Pierre PharmD Unavailable [phone] Basilio Hall MD Unavailable [phone] Ron Preciado MD Unavailable [phone] Reason for Visit * Reason Comments Med Refill Encounter Details Date Type Department Care Team (Late st Contact Info) Description 10/24/2023 Refill [facility] MEDICINE 230 [place] [address] Sariah Vickers ANP 230 [place] [address] Neck pain Social History Tobacco Use Types [...] Description 12/27/2024 11:00 AM EST Medication Management [address] [address] Yuri Pierre, PharmD [address] [place] [address] 01/07/2025 9:30 AM EST Clinical Support [address] [address] Azeb Hall, MARTIN 505 [place] [address] 01/11/2025 1:00 PM EST Office Visit [address] [address] Sariah Vickers, KAYLEE [address] [place] [address] 02/03/2025 11:00 AM EST Medication Management [address] [address] Yuri Pierre, PharmD [address] [place] [address] documented as of this encounter Goals Goal [...] documented as of this encounter Care Teams Project Management Intern Relationship Specialty Start Date End Date Sariah Vickers ANP 230 [place] [address] PCP - General Family Medicine 09/23/19 Yuri Pierre PharmD 230 [place] [address] Pharmacist Internal Medicine 05/05/24 Basilio Hall MD [address] [place] [address] Cardiology 05/17/24 Ron Preciado MD [address] [place] [address] Pulmonary Disease 05/17/24 documented as of this encounter
--- OUTSIDE RECORDS SUMMARY | 2024-12-22 10:27 | XMS_ITS | Encounter Summary ---
Author Organization [employer] Address 75 [facility] 7t [place] [address] Care Team Providers Care Breakdown Man Name Role Phone Sariah Vickers Primary Care Provider [phone] Yuri Pierre PharmD Unavailable [phone] Basilio Hall MD Unavailable [phone] Ron Preciado MD Unavailable [phone] Reason for Visit * Reason Comments Med Refill Encounter Details Date Type Department Care Team (Late st Contact Info) Description 10/03/2023 Refill [facility] 230 [place] [address] Sariah Vickers ANP 230 [place], [place] [phone] Chronic SI joint pain Social History Tobacco [...] Description 12/27/2024 11:00 AM EST Medication Management [address] [address] Yuri Pierre, PharmD [address] [place] [address] 01/07/2025 9:30 AM EST Clinical Support [address] [address] Azeb Hall, MARTIN 505 [place] [address] 01/11/2025 1:00 PM EST Office Visit [address] [address] Sariah Vickers, ANP [address] [place] [address] 02/03/2025 11:00 AM EST Medication Management [address] [address] Yuri Pierre, PharmD [address] [place] [address] documented as of this encounter Goals Goal [...] documented as of this encounter Care Teams Breakdown Man Relationship Specialty Start Date End Date Sariah Vickers ANP 230 [place] [address] PCP - General Family Medicine 09/23/19 Yuri Pierre, MikeD 230 [place] [address] Pharmacist Internal Medicine 05/05/24 Basilio Hall MD [address] [place] [address] Cardiology 05/17/24 Ron Preciado MD [address] [place] [address] Pulmonary Disease 05/17/24 documented as of this encounter
--- OUTSIDE RECORDS SUMMARY | 2024-12-22 10:27 | XMS_ITS | Encounter Summary ---
Author Organization [employer] Address 75 [facility] 7t [place] [address] Care Team Providers Care Fruit Packer Face And Fill Name Role Phone Sariah Vickers Primary Care Provider [phone] Yuri Pierre PharmD Unavailable [phone] Basilio Hall MD Unavailable [phone] Ron Preciado MD Unavailable [phone] Reason for Visit * Reason Comments Med Refill Encounter Details Date Type Department Care Team (Late st Contact Info) Description 10/17/2023 Refill [facility] 230 [place] [address] Sariah Vickers ANP 230 [place] [address] Neck pain Social History Tobacco Use Types [...] Description 12/27/2024 11:00 AM EST Medication Management [address] [address] Yuri Pierre, PharmD [address] [place] [address] 01/07/2025 9:30 AM EST Clinical Support [address] [address] Azeb Hall, MARTIN 505 [place] [address] 01/11/2025 1:00 PM EST Office Visit [address] [address] Sariah Vickers, KAYLEE [address] [place] [address] 02/03/2025 11:00 AM EST Medication Management [address] [address] Yuri Pierre, PharmD [address] [place] [address] documented as of this encounter Goals Goal [...] documented as of this encounter Care Teams Fruit Packer Face And Fill Relationship Specialty Start Date End Date Sariah Vickers ANP 230 [place] [address] PCP - General Family Medicine 09/23/19 Yuri Pierre PharmD 230 [place] [address] Pharmacist Internal Medicine 05/05/24 Basilio Hall MD [address] [place] [address] Cardiology 05/17/24 Ron Preciado MD [address] [place] [address] Pulmonary Disease 05/17/24 documented as of this encounter
--- OUTSIDE RECORDS SUMMARY | 2024-12-22 10:27 | XMS_ITS | Encounter Summary ---
Author Organization [employer] Address 75 [facility] 7t [place] [address] Care Team Providers Care Manufacturing Teacher Name Role Phone Sariah Vickers Primary Care Provider [phone] Yuri Pierre PharmD Unavailable [phone] Basilio Hall MD Unavailable [phone] Ron Preciado MD Unavailable [phone] Reason for Visit * Reason Comments Med Refill Encounter Details Date Type Department Care Team (Late st Contact Info) Description 12/17/2023 Refill [facility] MEDICINE 230 [place] [address] Sariah Vickers ANP 230 [place] [address] Chronic SI joint pain Social History Tobacco [...] Description 12/27/2024 11:00 AM EST Medication Management [address] [address] Yuri Pierre, PharmD [address] [place] [address] 01/07/2025 9:30 AM EST Clinical Support [address] [address] Azeb Hall, MARTIN 505 [place] [address] 01/11/2025 1:00 PM EST Office Visit [address] [address] Sariah Vickers, KAYLEE [address] [place] [address] 02/03/2025 11:00 AM EST Medication Management [address] [address] Yuri Pierre, PharmD [address] [place] [address] documented as of this encounter Goals [...] as of this encounter Care Teams Manufacturing Teacher Relationship Specialty Start Date End Date Sariah Vickers ANP 230 [place] [address] PCP - General Family Medicine 09/23/19 Yuri Pierre PharmD [address] [place] [address] Pharmacist Internal Medicine 05/05/24 Basilio Hall MD [address] [place] [address] Cardiology 05/17/24 Ron Preciado MD [address] [place] [address] Pulmonary Disease 05/17/24 documented as of this encounter
--- OUTSIDE RECORDS SUMMARY | 2024-12-22 10:28 | XMS_ITS | Clinical Summary ---
Author Organization [employer] Address [address] [facility] [address] [place] [address] Care Team Providers Care Jig And Fixture Repairer Name Role Phone Anthony Ruiz KAYLEE Primary Care Provider [phone] Yuri Pierre PharmD Unavailable [phone] Basilio Hall MD Unavailable [phone] Ron Preciado MD Unavailable [phone] Allergies Active Allergy Reactions Criticality Noted [...] mouth in the morning. Active Lactobacillus-In ulin ([facility]) capsule 023 Active Xolair 150 MG/ML [...] DAILY 100 each 5 03/31/2 025 Active Continuous Glucose Engineering Laboratory Technician (FreeStyle Jalil 3 [place]) device 1 each Once per day. Use [...] RINSE MOUTH AFTER USING. 60 each Active fluticasone (Flonase) 50 MCG/ACT nasal spray [...] TWICE DAILY DIRECTED 102 g 025 Active levothyroxine (Synthroid, Levoxyl) 88 MCG tablet Take 88 mcg by mouth in the morning. Active Baqsimi Two Pack 3 MG/DOSE nasal powderIndication s:Type 2 diabetes mellitus with diabetic neuropathy, with long-term current use of insulin ([facility]) USE 1 SPRAY (3MG) IN ONE NOSTRIL [...] tabletIndication s:Type 2 diabetes mellitus with hyperlipidemia ([facility]) CHEW 4 TABLETS NEEDED FOR low blood [...] start before December 17, 2024. 60 tablet 025 Active semaglutide (Ozempic) 2 MG/1.5ML solution pen-injectorIndi cations:Type 2 diabetes mellitus with hyperlipidemia ([facility]) Inject 0.25 mg under the skin 1 (one) time per week. 1 each Active Continuous Glucose Sensor (i-nexuscom G7 Sensor) miscIndications: Type 2 diabetes mellitus with hyperlipidemia (HCC) 1 each 3 times daily. Apply 1 sensor every 10 days 3 each 2024 Active gabapentin (Neurontin) 400 MG capsuleIndicatio ns:Chronic SI joint pain Take 1 capsule (400 mg) by mouth at bedtime. 30 capsule 2 Active amLODIPine (Norvasc) 10 MG tablet TAKE 1 TABLET BY MOUTH EVERY EVENING 90 tablet 1 Active montelukast (Singulair) 10 MG tablet TAKE 1 TABLET BY MOUTH EVERY EVENING 90 tablet 1 Active glucose 4 g chewable tabletIndication s:Type 2 diabetes mellitus with hyperlipidemia (HCC) CHEW 4 TABLETS BY MOUTH NEEDED LOW FOR BLOOD SUGAR 50 tablet 12 024 2024 Discontinued amLODIPine (Norvasc) 10 MG tablet TAKE 1 TABLET BY MOUTH EVERY EVENING 90 tablet 1 025 2024 Discontinued(R eorder (will not trigger notification to Pharmacy)) montelukast (Singulair) 10 MG tablet TAKE 1 TABLET BY MOUTH EVERY EVENING 90 tablet 1 025 2024 Discontinued(R eorder (will not trigger notification to Pharmacy)) semaglutide (Ozempic) 2 MG/1.5ML solution pen-injectorIndi cations:Type 2 diabetes mellitus with hyperlipidemia (HCC) Inject 0.5 mg under the skin 1 (one) time per week. 1 each 025 2024 Discontinued(R eorder (will not trigger notification to Pharmacy)) Diclofenac Sodium 1 % gelIndications:C hronic bilateral low back pain, unspecified whether sciatica present APPLY 2 GRAMS TOPICALLY TO AFFECTED AREA(S) ONCE DAILY NEEDED FOR PAIN 100 g 1 025 2024 Discontinued enalapril (Vasotec) 20 MG tabletIndication s:Essential hypertension TAKE 1 TABLET BY MOUTH EVERY MORNING 30 tablet 1 025 2024 Discontinued gabapentin (Neurontin) 400 MG capsuleIndicatio ns:Chronic SI joint pain TAKE 1 CAPSULE BY MOUTH AT BEDTIME 30 capsule 2 025 2024 Discontinued(R eorder (will not trigger notification to Pharmacy)) ipratropium-albu terol (Duo-Neb) 0.5-2.5 mg/3 mL nebulizer solutionIndicati ons:Severe persistent asthma without complication (HCC) INHALE AMPULE USING A NEBULIZER EVERY 6 HOURS NEEDED 90 mL 5 025 2024 Discontinued acetaminophen (Tylenol) 325 MG tabletIndication s:Neck pain TAKE 1 TO 2 TABLETS BY MOUTH EVERY 6 HOURS NEEDED 120 tablet 2024 Discontinued traMADol (Ultram) 50 MG tabletIndication [...] for 5 days. 10 tablet 025 2024 Continuous Glucose Engineering Laboratory Technician (Dexcom G7 Engineering Laboratory Technician) deviceIndication s:Type 2 diabetes mellitus with hyperlipidemia [...] to seal bleeding vessel Will refer to mold worker for followup if needed Return precautions for [...] is currently connected with services through [facility]. Pt needing additional support due [...] family. She will continue services with [facility] for OP therapy and psychiatry services. clinician will be available if needed during next medical appointment. PLAN: (check all that apply) Continue with current services (defined as services in the past 12 months) . Pt is engaged with OP therapy and psychiatry services with [facility] @ [facility] Excessive attrition of teeth, generalized 2023 Right [...] family. She will continue services with [facility] for OP therapy and psychiatry services. clinician will be available if needed during next medical appointment. PLAN: (check all that apply) Continue with current services (defined as services in the past 12 months) . Pt is engaged with OP therapy and psychiatry services with [facility] @ [facility]) Fibromyalgia 07/31/2022 Asthma-COPD overlap syndrome (CMS/HCC) Right [...] for possible plantar fasciitis -referred today to real estate account executive x ongoing discomfort -may need orthopedic shoes [...] individual therapy and psychiatry with N at [facility] ([facility] Sees psych provider every two months and therapist bi-weekly. Pt will reach out to clinician as needed. Assessment & Plan (04/10/2023 11:08 AM EST): PLAN: (check all that apply) Behavioral Health Integration Plan Patient Self Plan Patient to reach out to [facility] team as needed Assessment & [...] 10/29/2022 Acute asthma exacerbation 07/31/2022 COPD exacerbation ([facility]) 07/31/2022 05/17/2024 Assessment & Plan (10/27/2023 4:48 [...] organization. Date Type Department Care Team Description 12/21/2024 Refill [facility] [address] [place] [address] Anthony Ruiz ANP 12/20/2024 Telephone [facility] [address] [place] [address] Anthony Ruiz ANP ER Follow-up 12/20/2024 Refill [facility] [address] [place] [address] Anthony Ruiz ANP Chronic SI joint pain 12/18/2024 Orders Only GENERIC EXTERNAL DATA DEPARTMENT Provider, Generic External Data 12/17/2024 Refill [facility] [address] [place] [address] Anthony Ruiz ANP Chronic SI joint pain 12/16/2024 2:20 PM EDT Office Visit [facility] [address] [address] Type 2 diabetes mellitus with hyperlipidemia (CMS/HCC) (Primary Dx) 12/16/2024 Telephone [facility] [address] [address] Brittney Nava MD Triage 12/16/2024 Travel 12/15/2024 Orders Only [facility] External Provider, [facility] 12/15/2024 Telephone [facility] [address] [place] [address] Anthony Ruiz ANP Med Refill 12/13/2024 Refill [facility] [address] [place] [address] Anthony Ruiz ANP Neck pain; Cervicalgia 12/12/2024 Refill [facility] [address] [place] [address] Anthony Ruiz ANP Cervicalgia 12/10/2024 Refill [facility] [address] [place] [address] Anthony Ruiz ANP Type 2 diabetes mellitus with hyperlipidemia (HCC) 12/09/2024 Telephone [facility] [address] [place] [address] Anthony Ruiz ANP Results 12/08/2024 Orders Only GENERIC EXTERNAL DATA DEPARTMENT Provider, Generic External Data 12/07/2024 Refill [facility] [address] [address] Anthony Ruiz ANP 12/03/2024 10:20 AM EDT Office Visit [facility] [address] [address] Jess Coyne MD Acute bronchitis, unspecified organism (Primary Dx); Severe persistent asthma without complication (HCC) 12/02/2024 Refill [facility] [address] [place] [address] Anthony Ruiz ANP Type 2 diabetes mellitus with diabetic neuropathy, with long-term current use of insulin (HCC) 12/01/2024 Refill [facility] [address] [place] [address] Debra Faye MD Chronic bilateral low back pain, unspecified whether sciatica present 11/24/2024 Refill [facility] [address] [place] [address] Anthony Ruiz ANP Essential hypertension; Severe persistent asthma without complication (HCC) 11/23/2024 Orders Only [facility] [address] [place] [address] Anthony Ruiz ANP 11/19/2024 Refill [facility] [address] [place] [address] Chava Presley MD 11/16/2024 Refill [facility] [address], [place] [phone] Anthony Ruiz ANP Type 2 diabetes mellitus with diabetic neuropathy, with long-term current use of insulin (CMS/HCC) 11/15/2024 Travel 11/14/2024 Refill [facility] [address] [place] [address] Anthony Ruiz ANP Cervicalgia 11/12/2024 Refill [facility] [address] [place] [address] Anthony Ruiz ANP Neck pain 11/11/2024 Refill [facility] [address] [place] [address] Yogesh Gomez, JOHN 11/10/2024 3:30 PM EDT Immunization [facility] [address] [place] [address] Yohana Quinn RN Encounter for immunization 11/10/2024 Travel 11/09/2024 9:00 AM EDT Office Visit [facility] [address] [place] [address] Chava Presley MD Type 2 diabetes mellitus with hyperlipidemia (CMS/HCC) (Primary Dx) 11/09/2024 Telephone [facility] [address] [place] [address] Azeb Hall RN 11/09/2024 Travel 11/08/[address] [address] Anthony Ruiz ANP Nurse Triage 11/05/2024 2:30 PM EDT Office Visit [address] [address] Hallie Tapia MD Boils (Primary Dx) 11/05/2024 Travel 11/03/[address] [address] Anthony Ruiz ANP Results 11/01/2024 2:45 PM EDT Office Visit [address] [address] Reta Sue MD Vaginal bleeding (Primary Dx); Dietary counseling; Exercise counseling; Class 2 obesity without serious comorbidity with body mass index (BMI) of 35.0 to 35.9 in adult, unspecified obesity type; Vulvar itching; Constipation, unspecified constipation type; Hemorrhoids, unspecified hemorrhoid type 11/01/2024 Travel 10/29/2024 Refill [facility] [address] [place] [address] Anthony Ruiz ANP Neck pain 10/26/2024 Results Follow-Up [address] [address] Anthony Ruiz ANP Thyroid Peroxidase Antibodies, Cardiolipin Antibodies (IgA,IgG,IgM) 10/25/2024 Refill [facility] [address] [place] [address] Anthony Ruiz ANP 10/23/2024 Refill [facility] [address] [place] [address] Anthony Ruiz ANP 10/22/2024 Orders Only GENERIC EXTERNAL DATA DEPARTMENT Provider, Generic External Data 10/20/2024 Results Follow-Up [address] [address] Anthony Ruiz ANP Prothrombin Time-INR, C-reactive Protein, Amylase, Additional followed-up results: 7 10/19/2024 Refill [facility] [address] [place] [address] Anthony Ruiz ANP Cervicalgia 10/14/2024 1:30 PM EDT Office Visit [facility] [address] [place] [address] Anthony Ruiz ANP Type 2 diabetes mellitus with hyperlipidemia (CMS/HCC) (CMS/HCC) (Primary Dx); Chronic pain of both knees; Chronic SI joint pain; Primary osteoarthritis of both knees; Essential hypertension; Long-term current use of opiate analgesic; OKEEFE (nonalcoholic steatohepatitis); Asthma-COPD overlap syndrome (CMS/HCC) 10/14/2024 Travel 10/13/2024 10:40 AM EDT Office Visit [facility] [address] [place] [address] Chava Presley MD Essential hypertension (Primary Dx) 10/13/2024 Travel 10/12/2024 Orders Only GENERIC EXTERNAL DATA DEPARTMENT Provider, Generic External Data 10/09/2024 Refill [facility] [address] [place] [address] Anthony Ruiz ANP Severe persistent asthma without complication 10/06/2024 Travel 10/04/2024 Refill [facility] [address] [place] [address] Zakia Uriostegui NP Type 2 diabetes mellitus with hyperglycemia (CMS/HCC) 10/01/2024 11:00 AM EDT Clinical Support [facility] [address] [place] [address] Azeb Hall, RN Neck pain 10/01/2024 Telephone [facility] [address] [place] [address] Azeb Hall, MARTIN 10/01/2024 Travel 09/30/2024 Telephone [facility] [address] [place] [address] Anthony Ruiz ANP Referral 09/30/2024 Telephone [facility] [address] [place] [address] Anthony Ruiz ANP Referral 09/30/2024 Refill [facility] [address] [place] [address] Anthony Ruiz ANP Chronic SI joint pain 09/28/2024 Orders Only [facility] [address] [place] [address] Anthony Ruiz ANP 09/25/2024 Refill [facility] [address] [place] [address] Anthony Ruiz ANP Chronic SI joint pain; Essential hypertension; Severe persistent asthma without complication 09/24/2024 2:00 PM EDT Office Visit [facility] [address] [place] [address] Luisa Martinez, OD Diabetes type 2, no ocular involvement (CMS/[facility]) (Primary Dx); Mixed type age-related cataract, both eyes; Lesion of left lower eyelid; Presbyopia 09/24/2024 Travel from Last 3 Months Immunizations Immunization [...] housing situation today? I have rodrigo donte 07/15/[address] you li [...] Description 12/27/2024 11:00 AM EST Medication Management [address] [address] Yuri Pierre, PharmBear [address] [place] [address] 01/07/2025 9:30 AM EST Clinical Support [address] [address] Azeb Hall, RN [address] [place] [address] 01/11/2025 1:00 PM EST Office Visit [address] [address] Anthony Ruiz ANP [address] [place] [address] 02/03/2025 11:00 AM EST Medication Management [address] [address] Yuri Pierre, PharmD [address] [place] [address] Health Maintenance Due Date Last Done Comments [...] Bitewings 2025 08/05/19, 09/12/2023, 08/12/2022 Tobacco Screening 12/16/2025 12/16/2024 Dental [...] Result Component 6.6( 1:54 PM EDT) No Phanis-Adia Medina, PharmD Procedures Procedure Name Priority Date/Time Associated Diagnosis Comments CT ABDOMEN PELVIS W CONTRAST Routine 12/18/2024 9:02 AM EDT URINALYSIS, COMPLETE, WITH REFLEX TO CULTURE Routine 12/18/2024 8:21 AM EDT XR CHEST 1 VIEW Routine 12/18/2024 7:39 AM EDT CULTURE, URINE, ROUTINE Routine 12/18/2024 12:00 AM EDT POCT GLUCOSE Routine 12/16/2024 2:44 PM EDT Type 2 diabetes mellitus with hyperlipidemia ([facility]/HCC) POCT GLUCOSE Routine 12/16/2024 1:06 PM EDT Type 2 diabetes mellitus with hyperlipidemia (CMS/HCC) US ABDOMEN COMPLETE Routine 12/15/2024 9 :44 [...] WITH REFLEX Routine 10/22/2024 10:49 AM EDT OFAY-3-[id number] I ANTIBODIES (IGG, IGA, IGM) Routine 10/22/2024 10:49 AM EDT ACTIN (SMOOTH MUSCLE) ANTIBODY (IGG) Routine 10/22/2024 10:49 AM EDT CARDIOLIPIN AB (IGA,IGG,IGM) Routine 10/22/2024 10:49 AM EDT THYROID PEROXIDASE ANTIBODIES Routine 10/22/2024 10:49 AM EDT POCT GLYCATED HEMOGLOBIN, TOTAL Routine 10/14/2024 1:54 PM EDT Type 2 diabetes mellitus with hyperlipidemia (CMS/HCC) ([facility]/HCC) POCT GLUCOSE Routine 10/14/2024 1:52 PM EDT Type 2 diabetes mellitus with hyperlipidemia (CMS/HCC) ([facility]/HCC) REX SCREEN, IFA, W/REFL TITER AND PATTERN [...] ANTIBODY ([facility]) Routine 08/06/2024 HIV ANTIBODY/ANTIGEN ([facility]) Routine 08/06/2024 PROPHYLAXIS - ADULT Routine 08/04/2024 [...] Results * CT Abdomen Pelvis w/ Contrast (12/18/2024 9:02 AM EDT) Anatomical Region Laterality Modality Body, Pelvis, Abdomen Computed T omography 12/18/2024 9:02 AM EDT Narrative 12/18/2024 9:03 AM EDT [address] [address] [address] Scan Report Signed Patient: Nuvai Fay MR #: [id number] : 1960 Acct:[id number] Age/Sex: 64 / F ADM Date: 12/18/24 Loc: HO.ED Attending Dr: Ordering Physician: Kourtney Jones MD Date of Service: 12/18/24 Procedure(s): CT abdomen pelvis w IV con Accession Number(s): [id number] cc: Kourtney Jones MD; ANTHONY RUIZ WEB UI SOFTWARE ENGINEER Report Number: [id number]: Total DLP = 609.00 mGy-cm Reason for Exam: abd pain CLINICAL HISTORY: abd pain CT abdomen and pelvis with contrast Comparison: Ultrasound abdomen from 12/15/2024 Findings: The lung bases are clear. Gallbladder is within normal limits. Punctate subcentimeter hepatic hypodensities are scattered throughout the liver and too small to characterize though likely reflect hepatic cysts. No biliary dilation. Spleen, pancreas, bilateral adrenal glands are within normal limits. Bilateral renal cysts redemonstrated. No renal stones. Colonic diverticulosis without findings of diverticulitis. No bowel obstruction, pneumoperitoneum, or pneumatosis. The appendix is normal. Aorta nonaneurysmal. Moderate atherosclerotic disease throughout the aorta and major branch vessels. No ascites. No retroperitoneal lymphadenopathy. Pelvic contents unremarkable. No acute osseous abnormality. No acute soft tissue abnormality. IMPRESSION: No acute intra-abdominal or pelvic abnormality. This document has been electronically signed by: Jasen Bliss MD on 12/18/2024 09:02:09 Dictated By: Jasen Bliss MD Signed By: <Electronically signed by Jasen Bliss MD in OV> 12/18/24901 DD/ 1 TD/TT: 12/18/24901 Tradeshow Worker: Procedure Note Donotuseinterpreter, Image - 12/18/[address] [place] [address] [address] Scan Report Signed Patient: Nuvia Fay EMR #: [id number] : 1960cct:[id number] Age/Sex: 64 / FADM Date: 12/18/24 Loc: HO.ED Attending Dr: Ordering Physician: Kourtney Jones MD Date of Service: 12/18/24 Procedure(s): CT abdomen pelvis w IV con Accession Number(s): [id number] cc: Kourtney Jones MD; ANTHONY RUIZ NP Report Number: [id number]: Total DLP = 609.00 mGy-cm Reason for Exam: abd pain CLINICAL HISTORY: abd pain CT abdomen and pelvis with contrast Comparison: Ultrasound abdomen from 12/15/2024 Findings: The lung bases are clear. Gallbladder is within normal limits. Punctate subcentimeter hepatic hypodensities are scattered throughout the liver and too small to characterize though likely reflect hepatic cysts. No biliary dilation. Spleen, pancreas, bilateral adrenal glands are within normal limits. Bilateral renal cysts redemonstrated. No renal stones. Colonic diverticulosis without findings of diverticulitis. No bowel obstruction, pneumoperitoneum, or pneumatosis. The appendix is normal. Aorta nonaneurysmal. Moderate atherosclerotic disease throughout the aorta and major branch vessels. No ascites. No retroperitoneal lymphadenopathy. Pelvic contents unremarkable. No acute osseous abnormality. No acute soft tissue abnormality. IMPRESSION: No acute intra-abdominal or pelvic abnormality. This document has been electronically signed by: Jasen Bliss MD on 12/18/2024 09:02:09 Dictated By: Jasen Bliss MD Signed By: <Electronically signed by Jasen Bliss MD in OV> 12/18/24901 DD/ 1 TD/TT: 12/18/24901 Tradeshow Worker: [facility] External Provider IMG CT PROCEDURES Edited Result - Final * (ABNORMAL) Urinalysis, Complete, with Reflex to Culture (12/18/2024 8:21 AM EDT) Color Urine Yellow [facility] Appearance Urine Clear [facility] PH 7.0 5.0 - 9.0 [facility] Glucose Urine UA Negative Negative mg/dL [facility] Urine Blood Negative Negative [facility] Specific [place] - Urine 1.025 1.005 - 1.025 [facility] Urine Protein Negative Neg-Trace mg/dL [facility] Urine Ketones Negative Negative mg/dL [facility] Nitrite Urine Negative Negative [facility] Leukocyte Esterase Urine Small (1+)(A) Negative [facility] RBC Urine 0-2 0 - 2 /HPF [facility] Urine WBC 0-5 0 - 5 /HPF [facility] Urine Squamous Epithelial Cell 0-2 0 - 2 /HPF [facility] Urine Bacteria None Seen None Seen [facility] Hyaline Casts, Urine 0-2 0 - 2 /LPF [facility] 12/18/2024 8:21 AM EDT 12/18/2024 8:26 AM EDT Narrative [facility] - 12/18/2024 8:45 AM EDT [id number], Clean Catch us Generic External Data Provider LAB URINE ORDERAB LES Final Result Performing Organization Address City/State/[facility] Co de Phone Number [facility] [address] [place] [phone] * XR Chest 1 View (12/18/2024 7:39 AM EDT) Anatomical Region Laterality Modality Chest Radiographic Griselda ging 12/18/2024 7:39 AM EDT Narrative 12/18/2024 7:42 AM EDT [address] [address] XRay Report Signed Patient: Nuvia Fay MR #: [id number] : 1960 Acct:[id number] Age/Sex: 64 / F ADM Date: 12/18/24 Loc: .ED Attending Dr: Ordering Physician: Kourtney Jones MD Date of Service: 12/18/24 Procedure(s): XR chest 1V Accession Number(s): [id number] cc: Kourtney Jones MD; ANTHONY RUIZ NP Reason for Exam: cough CLINICAL HISTORY: cough 1 view chest x-ray Comparison: CR/SR - XR CHEST 2 VIEWS - 12/08/24 14:21 EDT Findings: No consolidation or effusion. Linear atelectasis left lung base. Normal size heart. No acute fracture. IMPRESSION: 1. No dense consolidation to suggest pneumonia. Linear atelectasis left base. This document has been electronically signed by: Whitney Price MD on 12/18/2024 07:39:34 Dictated By: Whitney Price MD Signed By: <Electronically signed by Whitney Price MD in OV> 12/18/2441 DD/ 8 TD/TT: 12/18/24738 Tradeshow Worker: Procedure Note Remisahilmarshadeana, Image - 12/18/[address] [address] XRay Report Signed Patient: Nuvia Fay EMR #: [id number] : 1960cct:[id number] Age/Sex: 64 / FADM Date: 12/18/24 Loc: HO.ED Attending Dr: Ordering Physician: Kourtney Jones MD Date of Service: 12/18/24 Procedure(s): XR chest 1V Accession Number(s): [id number] cc: Kourtney Jones MD; ANTHONY RUIZ NP Reason for Exam: cough CLINICAL HISTORY: cough 1 view chest x-ray Comparison: CR/SR - XR CHEST 2 VIEWS - 12/08/24 14:21 EDT Findings: No consolidation or effusion. Linear atelectasis left lung base. Normal size heart. No acute fracture. IMPRESSION: 1. No dense consolidation to suggest pneumonia. Linear atelectasis left base. This document has been electronically signed by: Whitney Price MD on 12/18/2024 07:39:34 Dictated By: Whitney Price MD Signed By: <Electronically signed by Whitney Price MD in OV> 12/18/2441 DD/ 8 TD/TT: 12/18/24738 Tradeshow Worker: [facility] External Provider IMG XR PROCEDURES Edited Result - Final * Culture, Urine, Routine (12/18/2024 12:00 AM EDT) Urine Urine specimen obtained by clean catch procedure / Unknown 12/18/2024 12/18/2024 Comment:[facility] - 12/19/2024 12:44 PM EST Urine Culture Report Result Urine Culture 10,000 to 50,000 cfu/ml Urine Culture Mixed bacterial yady characteristic of Urine Culture urogenital contamination. Specimen Source: Urine clean catch us Generic External Data Provider LAB MICROBIOLOGY - GENERAL ORDERABLES Final Result [facility] [address] [place] [phone] * POCT Glucose (12/16/2024 2:44 PM EDT) [...] PM EDT Narrative 12/15/2024 9:46 PM EDT [address] [address] Ultrasound Report Signed Patient: Nuvia Fay MR #: [id number] : 1960 Acct:[id number] Age/Sex: 64 / F ADM Date: 12/15/24 Loc: HO.US Attending Dr: Umm PERALTA Ordering Physician: Umm Ellsworth Date of Service: 12/15/24 Procedure(s): US abdomen complete Accession Number(s): [id number] cc: Umm Ellsworth; ANTHONY RUIZ NP Reason [...] in OV> 12/15/242144 DD/ 43 TD/TT: 12/15/242143 Tradeshow Worker: Procedure Note Donotuseinterpreter, Image - 12/15/2024 [place] [address] Ultrasound Report Signed Patient: Nuvia Fay EMR #: [id number] : 1960cct:[id number] Age/Sex: 64 / FADM Date: 12/15/24 Loc: HO.US Attending Dr: Umm PERALTA Ordering Physician: Umm Ellsworth Date of Service: 12/15/24 Procedure(s): US abdomen complete Accession Number(s): [id number] cc: Umm Ellsworth; ANTHONY RUIZ NP Reason [...] in OV> 12/15/242144 DD/ 43 TD/TT: 12/15/242143 Tradeshow Worker: us [facility] External Provider IMG US PROCEDURES Edited Result - Final * XR Chest 2 Views (12/08/2024 2:21 PM EDT) Anatomical Region Laterality Modality Chest Radiographic Griselda ging 12/08/2024 2:21 PM EDT Narrative 12/08/2024 2:34 PM EDT [place] [address] XRay Report Signed Patient: Nuvia Fay MR #: [id number] : 1960 Acct:[id number] Age/Sex: 64 / F ADM Date: 12/08/24 Loc: HO.ED Attending Dr: Ordering Physician: Rosangela Ventura Date of Service: 12/08/24 Procedure(s): XR chest 2V Accession Number(s): [id number] cc: Rosangela Ventura; ANTHONY RUIZ NP Reason [...] OV> 12/08/24 1431 DD/ 20 TD/TT: 12/08/241427 Tradeshow Worker: Procedure Note Otoniel, Vinicius - 12/08/[address] [address] XRay Report Signed Patient: Nuvia Fay EMR #: [id number] : 1960cct:[id number] Age/Sex: 64 / FADM Date: 12/08/24 Loc: HO.ED Attending Dr: Ordering Physician: Rosangela Ventura Date of Service: 12/08/24 Procedure(s): XR chest 2V Accession Number(s): [id number] cc: Rosangela Ventura; ANTHONY RUIZ NP Reason [...] in OV> 12/08/24 1431 DD/ 1421 TD/TT: 12/08/241427 Tradeshow Worker: [facility] External Provider IMG XR PROCEDURES Final Result * Influenza A B2 ID NOW (Bailey) (12/08/2024 2:09 PM EDT) IDNOW SERIAL# [id number] [facility] Influenza A Negative Negative [facility] Influenza B2 Negative Negative [facility] Influenza A B2 Note See Note [facility] Comment:The Bailey ID NOW In [...] LAB MICROBIOLOGY - GENERAL ORDERABLES Final Result [facility] [address] [place] [phone] * COVID-19 ID NOW (BAILEY) (12/08/2024 2:09 PM EDT) IDNOW SERIAL# [id number] [facility] COVID-19 TEST Negative Negative [facility] COVID-19 NOTE See Note [facility] Comment: Results are for the identification of SARS-CoV2 RNA. TheSARS-CoV2 RNA is generally detectable in respiratory samplesduring the acute phase of infection. Positive results areindicative of the presence of SARS-CoV-2 RNA; clinicalcorrelation with patient history and other diagnosticinformation is necessary to determine patient infectionstatus. Positive results do not rule out bacterial infectionor co- infection with other viruses.Testing facilities within the [facility] and itsterritories are required to report all [...] use by authorized laboratories.Testing performed on the SimpliVT ID NOW utilizing NAAT. 12/08/2024 2:09 PM EDT 12/08/2024 2:13 PM EDT Generic External Data Provider LAB MOLECULAR LILIAM GNOSTICS ORDERABLES Final Result Performing Organization Address [facility] de Phone Number [facility] [address] [place] [phone] * High Sensitivity Troponin I (12/08/2024 2:09 PM EDT) [facility] TROPONIN I HIGH SENSITIVITY <2.7 <3.5 - 17.0 ng/L [facility] Comment:The Bailey high sens itivity Troponin-I results should beused in conjunction with other diagnostic information suchas ECG, clinical observations and information, and patientsymptoms to aid in the diagnosis of [place]. 12/08/2024 2:09 PM EDT 12/08/2024 2:13 PM EDT Generic External Data Provider LAB BLOOD ORDERAB LES Final Result Performing Organization Address [facility] Number [facility] [address] [place] [phone] * (ABNORMAL) CBC auto differential (12/08/2024 2:09 PM EDT) [facility] White Blood Count 7.6 4.8 - 10.8 X10*3/uL [facility] Red Blood Count 4.67 4.20 - 5.50 X10*6/uL [facility] Hemoglobin 14.7 12.0 - 16.0 g/dl [facility] Hematocrit 44.2 37.0 - 47.0 % [facility] Mean Corpuscular Volume 94.6 80.0 - 98.0 fL [facility] Mean Corpuscular Hemoglobin 31.5 27.0 - 33.0 pg [facility] Mean Corpuscular HGB Conc 33.3 31.0 - 35.0 g/dl [facility] Red Cell Distribution Width 12.9 11.0 - 16.0 % [facility] Platelet Count 268 160 - 400 X10*3/uL [facility] Mean Platelet Volume 9.2(L) 9.4 - 12.3 fL [facility] Neutrophils Percent Auto 82.1(H) 45 - 73 % [facility] Imm Gran Pct Auto 0.3 0.0 - 0.4 % [facility] Lymphocytes Percent Auto 16.1(L) 20 - 40 % [facility] Monocytes Percent Auto 0.8(L) 2 - 11 % [facility] Eosinophils Percent Auto 0.3 0 - 4 % [facility] Basophils Percent Auto 0.4 0 - 2 % [facility] NRBC Pct Auto 0.0 0.0 - 0.2 /100WBC [facility] Neutrophils Absolute Auto 6.2 2.0 - 8.3 x10*3/uL [facility] Imm Gran Abs Auto 0.02 0.00 - 0.03 X10*3/uL [facility] Lymphocytes Absolute Auto 1.2 1.2 - 4.9 X10*3/uL [facility] Monocytes Absolute Auto 0.1 0.1 - 1.2 X10*3/uL [facility] Eosinophils Absolute Auto 0.0 0.0 - 0.4 X10*3/uL [facility] Basophils Absolute Auto 0.0 0.0 - 0.2 X10*3/uL [facility] NRBC Abs Auto 0.000 0.0 - 0.012 X10*3/uL [facility] 12/08/2024 2:09 PM EDT 12/08/2024 2:13 PM EDT us Generic External Data Provider LAB BLOOD ORDERAB LES Final Result [facility] [address] [place] [phone] [phone] * Magnesium (12/08/2024 2:09 PM EDT) Magnesium 2.1 1.6 - 2.6 mg/dL [facility] 12/08/2024 2:09 PM EDT 12/08/2024 2:13 PM EDT us Generic External Data Provider LAB BLOOD ORDERAB LES Final Result [facility] [address] [place] [phone] * (ABNORMAL) Comprehensive Metabolic Panel (12/08/2024 2:09 PM EDT) Sodium 141 135 - 145 mmol/L [facility] Potassium 3.7 3.3 - 5.1 mmol/L [facility] Chloride 109(H) 96 - 108 mmol/L [facility] Carbon Dioxide 25 22 - 29 mmol/L [facility] Anion Gap 11(L) 12 - 20 [facility] Urea Nitrogen (BUN) 13 9 - 16 mg/dL [facility] Creatinine, Serum 0.90 0.5 - 1.4 mg/dL [facility] Creatinine Clr Calc Pharmacy 64.2 [facility] Comment:Provided height and weight: 152.4 cm,92.896 kg.eGFR (calculated from the MDRD study equation) and eCrCl(calculated from the Cockcroft-Gault equation) are based ondifferent parameters and may not yield comparable results.If eCrCl result is absurd, please check patient'sheight/weight. Estimated Glomerular Filt Rate >60 [facility] Comment:Chronic Kidney Disea se: Estimated GFR < 60 mL/min/1.85q7Shhrkr Kidney Disease: Estimated GFR < 15 mL/min/1.73m2 Glucose 214(H) 60 - 115 mg/dL [facility] Calcium 9.8 8.4 - 10.2 mg/dL [facility] Bilirubin, Total 0.3 0.0 - 1.0 mg/dL [facility] Aspartate Amino Transferase 28 5 - 31 U/L [facility] Alanine Aminotransferase 16 0 - 31 U/L [facility] Total Protein 7.4 6.5 - 8.0 g/dL [facility] Albumin Level 4.2 3.5 - 5.0 g/dL [facility] Alkaline Phosphatase 101 39 - 117 U/L [facility] 12/08/2024 2:09 PM EDT 12/08/2024 2:13 PM EDT us Generic External Data Provider LAB BLOOD ORDERAB LES Final Result Performing Organization Address [facility]/ZIP Co de Phone Number [facility] [address] [place] [phone] * Bacterial Vaginosis Panel (11/01/2024 12:00 AM EDT) TRICHOMONAS VAGINALIS DETECTION BY PCR NOT DETECTED Not Detect [facility] BACTERIAL VAGINOSIS DETECTION BY PCR NEGATIVE Negative [facility] Comment:The BV organism targ ets [...] DETECTION BY PCR NOT DETECTED Not Detect [facility] Eufemia glab krusei PCR NOT DETECTED Not Detect [facility] Swab Vaginal structure / Unknown 11/01/2024 11/01/2024 us Reta Sue MD LAB MICROBIOLOGY - GENERAL ORD ERABLES Final Result Performing Organization Address [facility]/ZIP Co de Phone Number [facility] [address] [place] [phone] * Rfnp-0-Kqhzorleoonk I Antibodies (IgG, IgA, IgM) (10/22/2024 10:49 AM EDT) B2 Glycoprotein I IgG Antibody <2.0 <20.0 U/mL [facility] Comment:Value Interpretation ----- < 20.0 Antibody not detected> or = 20.0 Antibody detected B2 Glycoprotein I IgM Antibody <2.0 <20.0 U/mL [facility] Comment:Value Interpretation ----- < 20.0 Antibody not detected> or = 20.0 Antibody detected B2 Glycoprotein I IgA Antibody <2.0 <20.0 U/mL [facility] Comment: Value Interpretation----- < 20.0 Antibody not detected> or = 20.0 Antibody detectedThe antiphospholipid antibody syndrome (APS) is aclinical- pathologic correlation that includes aclinical event (e.g. arterial or venous thrombosis, morbidity) and persistent positiveantiphospholipid antibodies (IgM, IgG Cardiolipin ddf4MXG antibodies greater than the 99th percentile;or a [...] therapy or aging.For additional information, please refer tohttp://education.LendInvest.Cat Amania/faq/UFC637(This link is being provided for informational/educational purposes only.)THIS TEST WAS PERFORMED AT:[employer] [id number] [place] [address]LDBFLPWDEAN CASAS MD,PHD 10/22/2024 10:4 9 AM EDT 10/22/2024 10:49 AM EDT us Generic External Data Provider LAB BLOOD ORDERAB LES Final Result Performing Organization Address City/[facility]/ZIP Co de Phone Number [facility] [address] [place] [phone] * (ABNORMAL) Thyroid Peroxidase Antibodies (10/22/2024 10:49 AM EDT) Thyroid Peroxidase Antibodies >900(A) <9 IU/mL [facility] Comment:THIS TEST WAS PERFOR MED AT:[employer] [address] [address]UKBVOHERNAN WARREN MD 10/22/2024 10:4 9 AM EDT 10/22/2024 10:49 AM EDT Generic External Data Provider LAB BLOOD ORDERAB LES Final Result Performing Organization Address [facility] Co de Phone Number [facility] [address] [place] [phone] * (ABNORMAL) Actin (Smooth Muscle) Antibody (IgG) (10/22/2024 10:49 AM EDT) Only the most recent of2 resultswithin the time period is included. Smooth Muscle Antibody 47(A) <20 U [facility] Comment:Reference Range: <20 U: Negative>or=20 [...] with AIH type 1.THIS TEST WAS PERFORMED AT:[id number] [place] [address]LGJCYFMDEAN CASAS MD,PHD 10/22/2024 10:4 9 AM EDT 10/22/2024 10:49 AM EDT Generic External Data Provider LAB BLOOD ORDERAB LES Final Result Performing Organization Address [facility] Co de Phone Number [facility] [address] [place] [phone] * Lupus Anticoagulant Evaluation with Reflex (10/22/2024 10:49 AM EDT) Lupus Interpretation see note [facility] Comment:A Lupus Anticoagulan t is not detected.Reference Range: Not DetectedFor additional information, please refer tohttp://education.DataGravity/faq/TFI51y6(This link is being provided for informational/educational purposes only.)This interpretation is based on the following testresults. PTT (LAC) Screen 33 <=40 sec [facility] DRVVT Screen 35 <=45 sec [facility] Comment:THIS TEST WAS PERFOR MED AT:[employer] [id number] [place] [address]AFUDHEFDEAN CASAS MD,PHD dRVVT Confirmation [facility] dRVVT 1:1 Mix [facility] DRVVT 1:1 Mix Interpretation [facility] Hexagonal Phase Neutralization [facility] Thrombin Clotting Time [facility] 10/22/2024 10:4 9 AM EDT 10/22/2024 10:49 AM EDT Generic External Data Provider LAB BLOOD ORDERAB LES Final Result Performing Organization Address [facility]/ZIP Co de Phone Number [facility] [address] [place] [phone] * Cardiolipin Antibodies (IgA,IgG,IgM) (10/22/2024 10:49 AM EDT) Cardiolipin Antibody (IgG) <2.0 GPL-U/mL [facility] Comment:Value Interpretation ----- < 20.0 Antibody not detected> or = 20.0 Antibody detected Cardiolipin Antibody (IgM) <2.0 MPL-U/mL [facility] Comment: Value Interpretation----- < 20.0 Antibody not detected> or = 20.0 Antibody detectedThe antiphospholipid antibody syndrome (APS) is aclinical- pathologic correlation that includes aclinical event (e.g. arterial or venous thrombosis, morbidity) and persistent positiveantiphospholipid antibodies (IgM, IgG Cardiolipin hdi8NWP antibodies greater than the 99th percentile; ora [...] therapy or aging.For additional information, please refer tohttp://education.DataGravity/faq/BEU699(This link is being provided for informational/educational purposes only.)THIS TEST WAS PERFORMED AT:[employer] [place] [address]DGRIXHERNAN WARREN MD 10/22/2024 10:4 9 AM EDT 10/22/2024 10:49 AM EDT Generic External Data Provider LAB BLOOD ORDERAB LES Final Result [facility] [address] [place] [phone] * (ABNORMAL) POCT HGB A1C (10/14/2024 1:54 PM EDT) Hemoglobin A1C 6.6(A) 4.0 - 5.7 % QC Media Lot # [id number] Lot# Expiration Date ,336,[id number] Blood 10/14/2024 1:54 PM EDT us Anthony Ruiz [facility] POINT OF CARE TEST ENTER/EDIT OR DERABLES Final Result * (ABNORMAL) TSH with Reflex to Free T4 (10/12/2024 2:10 PM EDT) TSH reflex Free T4 6.80(H) 0.32 - 4.0 uIU/mL [facility] 10/12/2024 2:10 PM EDT 10/12/2024 2:10 PM EDT Generic External Data Provider LAB BLOOD ORDERAB LES Final Result Performing Organization Address [facility] Co de Phone Number [facility] [address] [place] [address] [phone] * Prothrombin Time-INR (10/12/2024 2:10 PM EDT) Prothrombin Time 10.9 10.9 - 12.4 SEC [facility] INTERNATIONAL NORM RATIO 1.0 0.9 - 1.1 [facility] Comment:INTERNATIONAL NORMAL IZED RATIO (INR) [...] 2:10 PM EDT 10/12/2024 2:10 PM EDT [employer] External Data Provider LAB BLOOD ORDERAB LES Final Result Performing Organization Address [facility] Co de Phone Number [facility] [address] [place] [address] [phone] * C-reactive Protein (10/12/2024 2:10 PM EDT) C Reactive Protein 0.31 < or = 0.50 mg/dL [facility] 10/12/2024 2:10 PM EDT 10/12/2024 2:10 PM EDT us Generic External Data Provider LAB BLOOD ORDERAB LES Final Result [facility] [address] [place] [phone] * (ABNORMAL) REX Screen,IFA, with Reflex to Titer and Pattern (10/12/2024 2:10 PM EDT) Anti Nuclear Antibody Screen POSITIV E(A) NEGATIVE [facility] Comment:REX IFA is a first l ine screen for detecting thepresence of up to approximately 150 autoantibodies invarious autoimmune diseases. A positive REX IFA resultis suggestive of autoimmune disease and reflexes totiter and pattern. Further laboratory testing may beconsidered if clinically indicated.For additional information, please refer tohttp://education.500Shops/faq/MHD362(This link is being provided for informational/educational purposes only.)THIS TEST WAS PERFORMED AT:[employer] [place] [address]HERNAN WARREN MD REX Titer 1:1280( A) titer [facility] Comment:Reference Range <1:4 0 Negative 1:40-1:80 Low Antibody Level >1:80 Elevated Antibody Level REX Pattern Nuclear , Homogen eous(A) [facility] Comment:Homogeneous pattern is associated with systemic lupuserythematosus (SLE), drug-induced lupus and juvenileidiopathic arthritis.AC-1: HomogeneousInternational Consensus on REX Patterns(https://doi.org/10.1515/gguv-0303-8302)THIS TEST WAS PERFORMED AT:[employer] [place] [address]HERNAN WARREN MD REX Titer 2 TNP [facility] REX Pattern 2 TNP [facility] REX TITER 3 TNP [facility] REX PATTERN 3 TNP [facility] 10/12/2024 2:10 PM EDT 10/12/2024 2:10 PM EDT Generic External Data Provider LAB BLOOD ORDERAB LES Final Result Performing Organization Address [facility] de Phone Number [facility] [address] [place] [phone] * T4, Free (10/12/2024 2:10 PM EDT) Free T4 (Free Thyroxine) 0.99 0.71 - 1.85 ng/dL [facility] 10/12/2024 2:10 PM EDT 10/12/2024 2:10 PM EDT Generic External Data Provider LAB BLOOD ORDERAB LES Final Result Performing Organization Address [facility] Phone Number [facility] [address] [place] [phone] * Lipase (10/12/2024 2:10 PM EDT) Lipase 20 8 - 78 U/L [facility] 10/12/2024 2:10 PM EDT 10/12/2024 2:10 PM EDT Generic External Data Provider LAB BLOOD ORDERAB LES Final Result Performing Organization Address [facility] Phone Number [facility] [address] [place] [phone] * (ABNORMAL) Hemoglobin A1c (10/12/2024 2:10 PM EDT) Hemoglobin A1c 6.5(H) <6.0 % [facility] Comment:Hemoglobin A1C Refer ence Range Adults: 4.8 - 6.0 % Non diabetic: < 6.0 % Goal: < 7.0 %Additional Action Suggested: > 8.0 %Note: Hemoglobin A1c results are invalid for patients with abnormal amounts of HbF. Blood transfusions may impact the HbA1c concentration in the patient sample. Estimated Average Glucose 140 mg/dL [facility] Comment:eAG = Estimated ave rage glucose which is %A1C expressed asaverage glucose, using the formula of the C3G-IwphwkjNtqtkeo Glucose study (ADAG), Diabetes Care, Vol.31,#8,2007 10/12/2024 2:10 PM EDT 10/12/2024 2:10 PM EDT us Generic External Data Provider LAB BLOOD ORDERAB LES Final Result Performing Organization Address [facility] Co de Phone Number [facility] [address] [place] [phone] * Ferritin (10/12/2024 2:10 PM EDT) Ferritin 69 10 - 250 ng/mL [facility] 10/12/2024 2:10 PM EDT 10/12/2024 2:10 PM EDT us Generic External Data Provider LAB BLOOD ORDERAB LES Final Result Performing Organization Address [facility] de Phone Number [facility] [address] [place] [phone] * Amylase (10/12/2024 2:10 PM EDT) Amylase 36 28 - 100 U/L [facility] 10/12/2024 2:10 PM EDT 10/12/2024 2:10 PM EDT Generic External Data Provider LAB BLOOD ORDERAB LES Final Result Performing Organization Address [facility] de Phone Number [facility] [address] [place] [phone] * CT Lung Screening Low dose (10/09/2024 1:18 PM EDT) Anatomical Region Laterality Modality Lung Computed Tomogra phy 10/09/2024 1:18 PM EDT Narrative 10/09/2024 1:20 PM EDT [address] [address] [address] Scan Report Signed Patient: Nuvia Fay MR #: [id number] : 1960 Acct:[id number] Age/Sex: 64 / F ADM Date: 10/08/24 Loc: HO.CT Attending Dr: Ron Preciado MD Ordering Physician: Ron Preciado MD Date of Service: 10/08/24 Procedure(s): CT lung screening Accession Number(s): [id number] cc: Ron Preciado MD; ANTHONY RUIZ NP Report Number: [id number]: Total DLP = 64.00 mGy-cm CLINICAL HISTORY: [...] 10/09/24 1319 DD/ 1318 TD/TT: 10/09/24 1318 Tradeshow Worker: Procedure Note Donotuseinterpreter, Image - 10/09/[address] [address] [address] Scan Report Signed Patient: Nuvia Fay EMR #: [id number] : 1960cct:[id number] Age/Sex: 64 / FADM Date: 10/08/24 Loc: HO.CT Attending Dr: oRn Preciado MD Ordering Physician: Ron Preciado MD Date of Service: 10/08/24 Procedure(s): CT lung screening Accession Number(s): [id number] cc: Ron Preciado MD; ANTHONY RUIZ NP Report Number: [id number]: Total DLP = 64.00 mGy-cm CLINICAL HISTORY: [...] This document has been electronically signed by: Liiga Argueta MD on 10/09/2024 13:18:52 Dictated By: Ligia Myrick MD Signed By: <Electronically signed by Ligia Myrick MD in OV> 10/09/24 1319 DD/ 1318 TD/TT: 10/09/241317 Tradeshow Worker: [facility] External Provider IMG CT PROCEDURES Edited [...] Unknown 10/01/2024 10:43 AM EDT Narrative Azeb Hall, RN - 10/01/2024 10:43 AM EDT .UTOX cup Lot#[id number] Exp. 11/23/25 Internal Pass Control [facility] POINT OF CARE TEST ENTER/EDIT OR DERABLES Final Result * Hepatitis C Antibody ([facility]) (08/06/2024) Hepatitis C Ab Nonreactive Blood 08/06/2024 [facility] Provider MD LAB BLOOD ORDERABLES Kelsey l Result * HIV Ab/Ag ([facility]) (08/06/2024) Pathologist [facility] HIV Ag/Ab Nonreactive Blood 08/06/2024 [facility] Provider MD LAB BLOOD ORDERABLES Kelsey l Result * (ABNORMAL) Lipid Panel, Standard (06/18/2024 10:18 AM EDT) Triglycerides 122 <150 mg/dL [facility] Comment:Desirable Triglyceri de: less than 150 mg/dLBorderline High Triglyceride 150-199 mg/dLHigh Triglyceride: 200-499 mg/dLVery High Triglyceride: greater than or equal to 5OO mg/dL Cholesterol 216(H) <200 mg/dL [facility] Comment:Desirable Cholestero l: less than 200 mg/dLBorderline High Cholesterol: 200-239 mg/dLHigh Cholesterol: greater than 239 mg/dL LDL Cholesterol Calculated 128(H) <100 mg/dL [facility] Comment:Desirable LDL: less than 100 mg/dLNear Optimal/Above Optimal LDL: 110- 129 mg/dLBorderline High LDL: 130-159 mg/dLHigh LDL: 160-189 mg/dLVery High LDL: greater than or equal to 190 mg/dL HDL Cholesterol 64 >40 mg/dL [facility] Comment:Desirable HDL: great er than 40 mg/dL Note: This HDL assay may give artificially low results in patients with liver disease. Blood Venous blood specimen / Unknown 06/18/2024 10:18 AM EDT 06/18/2024 11:08 AM EDT us Anthony Ruiz ANP LAB BLOOD ORDERABLES Final Resul t [facility] [address] [place] [address] [phone] * BI Mammogram Screening Tomosynthesis Bilateral (04/12/2024 1:48 PM EST) Anatomical Region Laterality Modality Breast Bilateral Mammography 04/12/2024 1:48 PM EST Narrative 04/17/2024 12:38 PM EST [address] [place] [address] Mammography Report Signed Patient: Nuvia Fay MR #: [id number] : 1960 Acct:[id number] Age/Sex: 63 / F ADM Date: 04/12/24 Loc: HO.MAMMO Attending Dr: Monica Lozano CNM Ordering Physician: Monica Lozano CNM Results: 2Beni gn Findings Date of Service: 04/12/24 Follow Up: 1 Year From Orig ina Mammogram Procedure(s): MM tomosynthesis screening BI Accession Number(s): [id number] cc: Monica Lozano CNM; ANTHONY RUIZ NP [...] 04/17/24 1235 DD/ 1348 TD/TT: 04/12/24 1405 Tradeshow Worker: Procedure Note Donotuseinterpreter, Image - 04/17/2024 [facility] [address] [place] [address] Mammography Report Signed Patient: Nuvia Fay EMR #: [id number] : [id number]:[id number] Age/Sex: 63 / FADM Date: 04/12/24 Loc: HO.MAMMO Attending Dr: Monica Lozano CNM Ordering Physician: Monica LozanoMResults: 2Beni gn Findings Date of Service: 04/12/24Follow Up: 1 Year From Orig inal Mammogram Procedure(s): MM tomosynthesis screening BI Accession Number(s): [id number] cc: Monica Lozano CNM; ANTHONY RUIZ NP [...] 04/17/24 1235 DD/ 1348 TD/TT: 04/12/24 1405 Tradeshow Worker: [facility] External Provider IMG BI PROCEDURES Edited Result - Final * Albumin, Random Urine W/Creatinine (01/02/2024 8:44 AM EST) Creatinine, Urine 47.20 mg/dL [facility] Microalbumin Urine 7.0 mg/L [facility] Microalbum Creatinine Ratio Ur 14.8 <30 ug/mg cr [facility] Comment:Albumin/Creatinine R atio Reference Ranges: Normal: < 30 ug/mg creatinine Microalbuminuria: 30 - 300 ug/mg creatinineClinical Albuminuria: > 300 ug/mg creatinine Urine (Urine, Random) 01/02/2024 8:44 AM EST 01/02/2024 11:09 AM EST Anthony Ruiz [facility] URINE ORDERABLES Final Resul t [facility] [address] [place] [phone] [phone] * (ABNORMAL) Colonoscopy (12/27/2021) Colonoscopy Abnormal(A ) Normal Historical Provider HEALTH MAINTENANCE Final Result * HPV E6/E7 RFLX ALFRED 16 18/45 (05/09/2020 11:19 AM EDT) HPV mRNA E6/E7 rflx Not Detected Not Detected [facility] Comment: Methodology: Placement Interviewer-Mediated Amplification This assay detects E6/E7 viral messenger RNA (mRNA) from 14 high-risk HPV types (16,18,31,33,35,39,45,51,52,56,58,59,66,68). The analytical performance characteristics of this assay have been determined by [employer]. The modifications have not been cleared or approved by the FDA. This assay has been validated pursuant to the CLIA regulations and is used for clinical purposes. For additional information, please refer to http://education.DataGravity/faq/UAA276c0 (This link if provided for information/ educational purposes only.) THIS TEST WAS PERFORMED AT: [employer] [address] [place] [address] [address] FLOOR,[place] [address] HERNAN WARREN MD 05/09/2020 11:1 9 AM EDT Yohana Lu HISTORICAL/NON ORDERABLE LABS Fi nal Result [facility] [address] from Last 3 Months or Most Recently Relevant to Health Maintenance Insurance [facility] < 65 [address] [place] [id number] [facility] Care Teams Jig And Fixture Repairer Relationship Specialty Start Date End Date Anthony Ruiz ANP [address] [place], [place] PCP - General Family Medicine 09/23/19 Yuri Pierre, MikeD [address] [place], [place] Pharmacist Internal Medicine 05/05/24 Basilio Hall MD [address] [place] [address] Cardiology 05/17/24 Ron Preciado MD [address] [place] [address] Pulmonary Disease 05/17/24
--- OUTSIDE RECORDS SUMMARY | 2024-12-22 10:28 | XMS_ITS | Encounter Summary ---
Author Organization [employer] Address 75 [facility] 7t [place] [address] Care Team Providers Care Paint Line Production Supervisor Name Role Phone Sariah Vickers Primary Care Provider [phone] Yuri Pierre PharmD Unavailable [phone] Basilio Hall MD Unavailable [phone] Ron Preciado MD Unavailable [phone] Reason for Visit * Reason Comments Med Refill Encounter Details Date Type Department Care Team (Late st Contact Info) Description 12/17/2024 Refill [facility] [address] [place] [address] Sariah Vickers ANP [address] [place] [address] Chronic SI joint pain Social History Tobacco [...] 12/27/2024 11:00 AM EST Medication Management [address] [address] Yuri Pierre, MikeD [address] [place] [address] 01/07/2025 9:30 AM EST Clinical Support [address] [address] Azeb Hall, MARTIN [address] [place] [address] 01/11/2025 1:00 PM EST Office Visit [address] [address] Sariah Vickers, KAYLEE [address] [place] [address] 02/03/2025 11:00 AM EST Medication Management [address] [address] Yuri Pierre, PharmD [address] [place] [address] documented as of this encounter Goals Goal [...] documented as of this encounter Care Teams Paint Line Production Supervisor Relationship Specialty Start Date End Date Sariah Vickers ANP [address] [place] [address] PCP - General Family Medicine 09/23/19 Yuri Pierre, MikeD [address] [place] [address] Pharmacist Internal Medicine 05/05/24 Basilio Hall MD [address] [place] [address] Cardiology 05/17/24 Ron Preciado MD [address] [place] [address] Pulmonary Disease 05/17/24 documented as of this encounter
--- OUTSIDE RECORDS SUMMARY | 2024-12-22 10:28 | XMS_ITS | Encounter Summary ---
Author Organization [employer] Address 75 [facility] 7t [place] [address] Care Team Providers Care Internal Security Manager Name Role Phone Sariah Vickers Primary Care Provider Yuri Pierre PharmD Unavailable [phone] Basilio Hall MD Unavailable [phone] Ron Preciado MD Unavailable [phone] Reason for Visit * Reason Comments Med Refill Encounter Details Date Type Department Care Team (Late st Contact Info) Description 05/09/2023 Refill [facility] [address] [place] [address] Sariah Vickers ANP [address] [place] [address] High cholesterol Social History Tobacco Use Types [...] 12/27/2024 11:00 AM EST Medication Management [address] [address] Yuri Pierre, PharmD [address] [place] [address] 01/07/2025 9:30 AM EST Clinical Support [address] [address] Azeb Hall, RN [address] [place] [address] 01/11/2025 1:00 PM EST Office Visit [address] [address] Sariah Vickers ANP [address] [place] [address] 02/03/2025 11:00 AM EST Medication Management [address] [address] Yuri Pierre, PharmD [address] [place] [address] documented as of this encounter Goals Goal [...] hypercholesterolemia documented in this encounter Care Teams Internal Security Manager Relationship Specialty Start Date End Date Sariah Vickers ANP [address] [place] [address] PCP - General Family Medicine 09/23/19 Yuri Pierre, MikeD [address] [place] [address] Pharmacist Internal Medicine 05/05/24 Basilio Hall MD [address] [place] [address] Cardiology 05/17/24 Ron Preciado MD [address] [place] [address] Pulmonary Disease 05/17/24 documented as of this encounter
--- OUTSIDE RECORDS SUMMARY | 2024-12-22 10:28 | XMS_ITS | Encounter Summary ---
Author Organization [employer] Address 75 [facility] 7t [place] [address] Care Team Providers Care Prep Person Name Role Phone Sariah Vickers Primary Care Provider [phone] Yuri Pierre PharmD Unavailable [phone] Basilio Hall MD Unavailable [phone] Ron Preciado MD Unavailable [phone] Reason for Visit * Reason Comments Med Refill Encounter Details Date Type Department Care Team (Late st Contact Info) Description 11/12/2024 Refill [facility] 230 [place] [address] Sariah Vickers ANP [address] [place] [address] Neck pain Social History Tobacco Use Types [...] Description 12/27/2024 11:00 AM EST Medication Management [address] [address] Yuri Pierre, MikeD [address] [place] [address] 01/07/2025 9:30 AM EST Clinical Support [address] [address] Azeb Hall, MARTIN [address] [place] [address] 01/11/2025 1:00 PM EST Office Visit [address] [address] Sariah Vickers, KAYLEE [address] [place] [address] 02/03/2025 11:00 AM EST Medication Management [address] [address] Yuri Pierre, PharmD [address] [place] [address] documented as of this encounter Goals Goal [...] documented as of this encounter Care Teams Prep Person Relationship Specialty Start Date End Date Sariah Vickers ANP [address] [place] [address] PCP - General Family Medicine 09/23/19 Yuri Pierre, MikeD [address] [place] [address] Pharmacist Internal Medicine 05/05/24 Basilio Hall MD 596 [place] [address] Cardiology 05/17/24 Ron Preciado MD [address] [place] [address] Pulmonary Disease 05/17/24 documented as of this encounter
--- OUTSIDE RECORDS SUMMARY | 2024-12-22 10:28 | XMS_ITS | Encounter Summary ---
Author Organization [employer] Address 75 [facility] 7t [place] [address] Care Team Providers Care Senior Billing Consultant Name Role Phone Sariah Vickers KAYLEE Primary Care Provider Yuri Pierre PharmD Unavailable [phone] Basilio Hall MD Unavailable [phone] Ron Preciado MD Unavailable [phone] Reason for Visit * Reason Comments Med Refill Encounter Details Date Type Department Care Team (Late st Contact Info) Description 11/11/2024 Refill [facility] [address] [place] [address] Yogesh Gomez, JOHN [address] [place] [address] Social History Tobacco Use Types Packs/Day Years [...] Upcoming Encounters Date Type Department Care Team ([facility] st Contact Info) Description 12/27/2024 11:00 AM EST Medication Management [address] [address] Yuri Pierre, PharmD [address] [place] [address] 01/07/2025 9:30 AM EST Clinical Support [address] [address] Azeb Hall, MARTIN 505 [place] [address] 01/11/2025 1:00 PM EST Office Visit [address] [address] Sariah Vickers, KAYLEE 230 [place] [address] 02/03/2025 11:00 AM EST Medication Management [facility] 230 [place] [address] Yuri Pierre, MikeD 230 [place] [address] documented as of this encounter Goals Goal [...] as of this encounter Care Teams Senior Billing Consultant Relationship Specialty Start Date End Date Sariah Vickers ANP [address] [place] [address] PCP - General Family Medicine 09/23/19 Yuri Pierre, PharmD [address] [place] [address] Pharmacist Internal Medicine 05/05/24 Basilio Hall MD 596 [place] [address] Cardiology 05/17/24 Ron Preciado MD [address] [place] [address] Pulmonary Disease 05/17/24 documented as of this encounter
--- OUTSIDE RECORDS SUMMARY | 2024-12-22 10:28 | XMS_ITS | Encounter Summary ---
Author Organization [employer] Address 75 [facility] 7t [place] [address] Care Team Providers Care Cottage Parent Name Role Phone Sariah Vickers KAYLEE Primary Care Provider [phone] Yuri Pierre PharmD Unavailable [phone] Basilio Hall MD Unavailable [phone] Ron Preciado MD Unavailable [phone] Reason for Visit * Reason Comments Med Refill Encounter Details Date Type Department Care Team (Late st Contact Info) Description 03/04/2023 Refill [facility] 230 [place] [address] Brittney Nava MD 230 [place] [address] Social History Tobacco Use Types Packs/Day Years [...] 12/27/2024 11:00 AM EST Medication Management [address] [address] Yuri Pierre, PharmD [address] [place] [address] 01/07/2025 9:30 AM EST Clinical Support [address] [address] Azeb Hall, RN 505 [place] [address] 01/11/2025 1:00 PM EST Office Visit [address] [address] Sariah Vickers ANP [address] [place] [address] 02/03/2025 11:00 AM EST Medication Management [address] [address] Yuri Pierre, PharmD [address] [place] [address] documented as of this encounter Goals Goal [...] on filedocumented in this encounter Care Teams Cottage Parent Relationship Specialty Start Date End Date Sariah Vickers ANP 230 [place] [address] PCP - General Family Medicine 09/23/19 Yuri Pierre, MikeD [address] [place] [address] Pharmacist Internal Medicine 05/05/24 Basilio Hall MD 5[address] [place] [address] Cardiology 05/17/24 Ron Preciado MD [address] [place] [address] Pulmonary Disease 05/17/24 documented as of this encounter
--- OUTSIDE RECORDS SUMMARY | 2024-12-22 10:28 | XMS_ITS | Encounter Summary ---
Author Organization [employer] Address 75 [facility] 7t [place] [address] Care Team Providers Care Insights Manager Name Role Phone Sariah Vickers Primary Care Provider [phone] Yuri Pierre PharmD Unavailable [phone] Basilio Hall MD Unavailable [phone] Ron Preciado MD Unavailable [phone] Reason for Visit * Reason Onset Date Comments Referral 08/02/2024 Encounter Details Date Type Department Care Team (Late st Contact Info) Description 08/02/2024 Telephone [facility] 230 [place], [place] [phone] Sariah Vickers ANP [address] [place], [place] [phone] Referral Social History Tobacco Use Types Packs/Day [...] for vertigo therapy. Please contact pt at [phone]. (English Speaker) documented in this encounter Plan of Treatment Upcoming Encounters Date Type Department Care Team ([facility] st Contact Info) Description 12/27/2024 11:00 AM EST Medication Management [facility] [address] [place] [address] Yuri Pierre, PharmD 230 [place] [address] 01/07/2025 9:30 AM EST Clinical Support [address] [phone] Azeb Hall, MARTIN 505 [place] [address] 01/11/2025 1:00 PM EST Office Visit [address] [phone] Sariah Vickers ANP [address] [place] [address] 02/03/2025 11:00 AM EST Medication Management [address] [phone] Yuri Pierre, MikeD [address] [place] [address] documented as of this encounter Goals Goal [...] documented as of this encounter Care Teams Insights Manager Relationship Specialty Start Date End Date Sariah Vickers ANP [address] [place] [address] PCP - General Family Medicine 09/23/19 Yuri Pierre, PharmD [address] [place] [address] Pharmacist Internal Medicine 05/05/24 Basilio Hall MD [address] [place], [place] Cardiology 05/17/24 Ron Preciado MD [address] [place], [place] [address] Pulmonary Disease 05/17/24 documented as of this encounter
--- OUTSIDE RECORDS SUMMARY | 2024-12-22 10:28 | XMS_ITS | Encounter Summary ---
Author Organization [employer] Address 75 [facility] 7t [place] [address] Care Team Providers Care Tumbling And Rolling Supervisor Name Role Phone Sariah Vickers Primary Care Provider [phone] Yuri Pierre PharmD Unavailable [phone] Basilio Hall MD Unavailable [phone] Ron Preciado MD Unavailable [phone] Reason for Visit * Reason Onset Date Comments Nurse Triage 01/14/2023 Encounter Details Date Type Department Care Team (Late st Contact Info) Description 01/14/2023 Telephone [facility] MED[facility]INE 230 [place] [address] Sariah Vickers ANP 230 [place] [address] Nurse Triage Social History Tobacco Use Types [...] 01/14/2023 9:26 AM EST Called pt. Via [employer] rural electrification engineer [id number] Kelly. Pt. States that she has been having a fire feeling in her legs. Its like A burning that goes down her legs . Pt. Unsure if it because of her Diabetes. Pt. Went to [facility] ED for pain on her left side [...] at 10am. Will send note to clinical daycare assistant to have note put in chart [...] Severe pain now, pt was seen at [facility] on 01/13 for pain in leg. Pt is still symptomatic The caller accepted this outcome Please contact pt at [phone] (spanish interpreter needed) documented in this encounter Plan of Treatment Upcoming Encounters Date Type Department Care Team (Late st Contact Info) Description 12/27/2024 11:00 AM EST Medication Management [address] [address] Yuri Pierre, Dileep [address] [place] [address] 01/07/2025 9:30 AM EST Clinical Support [address] [address] Azeb Hall, RN 505 [place] [address] 01/11/2025 1:00 PM EST Office Visit [address] [address] Sariah Vickers ANP [address] [place] [address] 02/03/2025 11:00 AM EST Medication Management [address] [address] Yuri Pierre, PharmD [address] [place] [address] documented as of this encounter Goals Goal [...] filedocumented in this encounter Care Teams Tumbling And Rolling Supervisor Relationship Specialty Start Date End Date Sariah Vickers ANP [address] [place] [address] PCP - General Family Medicine 09/23/19 Yuri Pierre, MikeD [address] [place] [address] Pharmacist Internal Medicine 05/05/24 Basilio Hall MD [address] [place] [address] Cardiology 05/17/24 Ron Preciado MD [address] [place] [address] Pulmonary Disease 05/17/24 documented as of this encounter
--- OUTSIDE RECORDS SUMMARY | 2024-12-22 10:28 | XMS_ITS | Encounter Summary ---
Author Organization [employer] Address 75 [facility] 7t [place] [address] Care Team Providers Care Building Repair Maintenance Supervisor Name Role Phone Sariah Vickers KAYLEE Primary Care Provider [phone] Yuri Pierre PharmD Unavailable [phone] Basilio Hall MD Unavailable [phone] Ron Preciado MD Unavailable [phone] Reason for Visit * Reason Comments Med Refill Encounter Details Date Type Department Care Team (Late st Contact Info) Description 10/04/2024 Refill [facility] [address] [place] [address] Zakia Uriostegui, MANAGER TITLE [address] [place] [address] Type 2 diabetes mellitus with hyperglycemia (CMS/HCC) [...] Description 12/27/2024 11:00 AM EST Medication Management [address] [address] Yuri Pierre, PharmD [address] [place] [address] 01/07/2025 9:30 AM EST Clinical Support [address] [address] Azeb Hall, MARTIN [address] [place] [address] 01/11/2025 1:00 PM EST Office Visit [address] [address] Sariah Vickers ANP [address] [place] [address] 02/03/2025 11:00 AM EST Medication Management [address] [address] Yuri Pierre, PharmD [address] [place] [address] documented as of this encounter Goals Goal [...] as of this encounter Care Teams Building Repair Maintenance Supervisor Relationship Specialty Start Date End Date Sariah Vickers ANP [address] [place] [address] PCP - General Family Medicine 09/23/19 Yuri Pierre, PharmD [address] [place] [address] Pharmacist Internal Medicine 05/05/24 Basilio Hall MD 596 [place] [address] Cardiology 05/17/24 Ron Prceiado MD [address] [place] [address] Pulmonary Disease 05/17/24 documented as of this encounter
--- OUTSIDE RECORDS SUMMARY | 2024-12-22 10:28 | XMS_ITS | Encounter Summary ---
Author Organization [employer] Address 75 [facility] 7t [place] [address] Care Team Providers Care Process Pumper Name Role Phone Sariah Vickers Primary Care Provider [phone] Yuri Pierre PharmD Unavailable [phone] Basilio Hall MD Unavailable [phone] Ron Preciado MD Unavailable [phone] Reason for Visit * Reason Onset Date Comments Referral 05/17/2022 Encounter Details Date Type Department Care Team (Late st Contact Info) Description 05/17/2022 Telephone [facility] MEDICINE 230 [place] [address] Sariah Vickers ANP 230 [place] [address] Referral Social History Tobacco Use Types Packs/Day [...] guide to vertigo. Please contact pt at [phone] documented in this encounter Plan of Treatment Upcoming Encounters Date Type Department Care Team (Late st Contact Info) Description 12/27/2024 11:00 AM EST Medication Management [address] [address] Yuri Pierre PharmD [address] [place] [address] 01/07/2025 9:30 AM EST Clinical Support [address] [address] Azeb Hall, RN 505 [place] [address] 01/11/2025 1:00 PM EST Office Visit [address] [address] Sariah Vickers ANP [address] [place] [address] 02/03/2025 11:00 AM EST Medication Management [address] [address] Yuri Pierre, MikeD [address] [place] [address] documented as of this encounter Visit Diagnoses Not on filedocumented in this encounter Care Teams Process Pumper Relationship Specialty Start Date End Date Sariah Vickers ANP [address] [place] [address] PCP - General Family Medicine 09/23/19 Yuri Pierre, MikeD 230 [place] [address] Pharmacist Internal Medicine 05/05/24 Basilio Hall MD 596 [place] [address] Cardiology 05/17/24 Ron Preciado MD [address] [place] [address] Pulmonary Disease 05/17/24 documented as of this encounter
--- OUTSIDE RECORDS SUMMARY | 2024-12-22 10:28 | XMS_ITS | Encounter Summary ---
Author Organization [employer] Address 75 [facility] 7t [place] [address] Care Team Providers Care Tufter Name Role Phone Sariah Vickers Primary Care Provider [phone] Yuri Pierre PharmD Unavailable [phone] Basilio Hall MD Unavailable [phone] Ron Preciado MD Unavailable [phone] Reason for Visit * Reason Comments Med Refill Encounter Details Date Type Department Care Team (Late st Contact Info) Description 02/28/2023 Refill [facility] MEDICINE 230 [place] [address] Sariah Vickers ANP 230 [place] [address] Cervicalgia Social History Tobacco Use Types Packs/Day [...] 12/27/2024 11:00 AM EST Medication Management [address] [address] Yuri Pierre, PharmD [address] [place] [address] 01/07/2025 9:30 AM EST Clinical Support [address] [address] Azeb Hall, RN 505 [place] [address] 01/11/2025 1:00 PM EST Office Visit [address] [address] Sariah Vickers ANP [address] [place] [address] 02/03/2025 11:00 AM EST Medication Management [address] [address] Yuri Pierre, PharmD [address] [place] [address] documented as of this encounter Goals Goal [...] Cervicalgia documented in this encounter Care Teams Tufter Relationship Specialty Start Date End Date Sariah Vickers ANP 230 [place] [address] PCP - General Family Medicine 09/23/19 Yuri Pierre, MikeD 230 [place] [address] Pharmacist Internal Medicine 05/05/24 Basilio Hall MD 596 [place] [address] Cardiology 05/17/24 Ron Preciado MD [address] [place] [address] Pulmonary Disease 05/17/24 documented as of this encounter
--- OUTSIDE RECORDS SUMMARY | 2024-12-22 10:28 | XMS_ITS | Encounter Summary ---
Author Organization [employer] Address 75 [facility] 7t [place] [address] Care Team Providers Care State Pilot Name Role Phone Sariah Vickers Primary Care Provider [phone] Yuri Pierre PharmD Unavailable [phone] Basilio Hall MD Unavailable [phone] Ron Preciado MD Unavailable [phone] Reason for Visit * Reason Comments Med Refill Encounter Details Date Type Department Care Team (Late st Contact Info) Description 12/27/2022 Refill [facility] MEDICINE 230 [place] [address] Sariah Vickers ANP 230 [place] [address] Neck pain Social History Tobacco Use Types [...] Description 12/27/2024 11:00 AM EST Medication Management [address] [address] Yuri Pierre, PharmD [address] [place] [address] 01/07/2025 9:30 AM EST Clinical Support [address] [address] Azeb Hall, RN 505 [place] [address] 01/11/2025 1:00 PM EST Office Visit [address] [address] Sariah Vickers ANP [address] [place] [address] 02/03/2025 11:00 AM EST Medication Management [address] [address] Yuri Pierre, PharmD [address] [place] [address] documented as of this encounter Goals Goal [...] Cervicalgia documented in this encounter Care Teams State Pilot Relationship Specialty Start Date End Date Sariah Vickers ANP 230 [place] [address] PCP - General Family Medicine 09/23/19 Yuri Pierre, MikeD [address] [place] [address] Pharmacist Internal Medicine 05/05/24 Basilio Hall MD [address] [place] [address] Cardiology 05/17/24 Ron Preciado MD [address] [place] [address] Pulmonary Disease 05/17/24 documented as of this encounter
--- OUTSIDE RECORDS SUMMARY | 2024-12-22 10:28 | XMS_ITS | Clinical Summary ---
Author Organization [facility] Address 175 [place] [address] Phone Care Team Providers Care Publishing Editor Name Role Phone Sariah Vickers NP Primary Care Provider [phone] Social History Tobacco Use Types Packs/Day Years [...] age to complete this topic Care Teams Publishing Editor Relationship Specialty Start Date End Date Sariah Vickers NP [address] [place] [phone] PCP - General 12/03/23
--- OUTSIDE RECORDS SUMMARY | 2024-12-22 10:28 | XMS_ITS | Encounter Summary ---
Author Organization [employer] Address 75 [facility] 7t [place] [address] Care Team Providers Care Diamond Wheel Molder Name Role Phone Sariah Vickers Primary Care Provider [phone] Yuri Pierre PharmD Unavailable [phone] Basilio Hall MD Unavailable [phone] Ron Preciado MD Unavailable [phone] Reason for Visit * Reason Comments Med Refill Encounter Details Date Type Department Care Team (Late st Contact Info) Description 12/19/2022 Refill [facility] MEDICINE 230 [place] [address] Sariah Vickers ANP 230 [place] [address] Vertigo Social History Tobacco Use Types Packs/Day [...] 12/27/2024 11:00 AM EST Medication Management [address] [address] Yuri Pierre, PharmD [address] [place] [address] 01/07/2025 9:30 AM EST Clinical Support [address] [address] Azeb Hall, RN 505 [place] [address] 01/11/2025 1:00 PM EST Office Visit [address] [address] Sariah Vickers ANP [address] [place] [address] 02/03/2025 11:00 AM EST Medication Management [address] [address] Yuri Pierre, PharmD [address] [place] [address] documented as of this encounter Goals Goal [...] giddiness documented in this encounter Care Teams Diamond Wheel Molder Relationship Specialty Start Date End Date Sariah Vickers ANP 230 [place] [address] PCP - General Family Medicine 09/23/19 Yuri Pierre, MikeD [address] [place] [address] Pharmacist Internal Medicine 05/05/24 Basilio Hall MD 596 [place] [address] Cardiology 05/17/24 Ron Preciado MD [address] [place] [address] Pulmonary Disease 05/17/24 documented as of this encounter
--- OUTSIDE RECORDS SUMMARY | 2024-12-22 10:28 | XMS_ITS | Encounter Summary ---
Author Organization [employer] Address 75 [facility] 7t [place] [address] Care Team Providers Care First Leveler Name Role Phone Sariah Vickers Primary Care Provider [phone] Yuri Pierre PharmD Unavailable [phone] Basilio Hall MD Unavailable [phone] Ron Preciado MD Unavailable [phone] Reason for Visit * Reason Onset Date Comments Nurse Triage 12/24/2022 Encounter Details Date Type Department Care Team (Late st Contact Info) Description 12/24/2022 Telephone [facility] MEDICINE 230 [place] [address] Sariah Vickers ANP 230 [place] [address] Nurse Triage Social History Tobacco Use Types [...] - 12/24/2022 1:11 PM EST Called pt.via [employer] foreign language interpreter [phone] Benjamin. Pt. States that she wants to [...] regimen and possible referral to a new Marketing Researcher due to pt. Not having jeremie in [...] accepted this outcome Please contact pt at [phone] documented in this encounter Plan of Treatment Upcoming Encounters Date Type Department Care Team (Late st Contact Info) Description 12/27/2024 11:00 AM EST Medication Management [address] [phone] Yuri Pierre PharmD [address] [place] [address] 01/07/2025 9:30 AM EST Clinical Support [address] [phone] Azeb Hall RN 505 [place] [address] 01/11/2025 1:00 PM EST Office Visit [address] [address] Sariah Vickers ANP [address] [place] [address] 02/03/2025 11:00 AM EST Medication Management [address] [phone] Yuri Pierre PharmBear [address] [place] [address] documented as of this encounter Goals Goal [...] on filedocumented in this encounter Care Teams First Leveler Relationship Specialty Start Date End Date Sariah Vickers ANP [address] [place] [address] PCP - General Family Medicine 09/23/19 Yuri Pierre PharmD [address] [place] [address] Pharmacist Internal Medicine 05/05/24 Basilio Hall MD 596 [place] [address] Cardiology 05/17/24 Ron Preciado MD [address] [place] [address] Pulmonary Disease 05/17/24 documented as of this encounter
--- OUTSIDE RECORDS SUMMARY | 2024-12-22 10:28 | XMS_ITS | Encounter Summary ---
Author Organization [employer] Address 75 [facility] 7t [place] [address] Care Team Providers Care In Flight Refueling Craftsman Name Role Phone Sariah Vickers Primary Care Provider [phone] Yuri Pierre PharmD Unavailable [phone] Basilio Hall MD Unavailable [phone] Ron Preciado MD Unavailable [phone] Reason for Visit * Reason Onset Date Comments Appointment Request 09/03/2024 Encounter Details Date Type Department Care Team (Late st Contact Info) Description 09/03/2024 Telephone [facility] MEDICINE 230 [place] [address] Sariah Vickers ANP 230 [place] [address] Appointment Request Social History Tobacco Use Types [...] when making the apt. Contact pt at [phone] documented in this encounter Plan of Treatment Upcoming Encounters Date Type Department Care Team ([facility] st Contact Info) Description 12/27/2024 11:00 AM EST Medication Management [address] [address] Yuri Pierre, PharmD [address] [place] [address] 01/07/2025 9:30 AM EST Clinical Support [address] [address] Azeb Hall, MARTIN 505 [place] [address] 01/11/2025 1:00 PM EST Office Visit [facility] [address] [place] [address] Sariah Vickers ANP [address] [place] [address] 02/03/2025 11:00 AM EST Medication Management [address] [address] Yuri Pierre, Dileep [address] [place] [address] documented as of this encounter Goals Goal [...] documented as of this encounter Care Teams In Flight Refueling Craftsman Relationship Specialty Start Date End Date Sariah Vickers ANP [address] [place] [address] PCP - General Family Medicine 09/23/19 Yuri Pierre, PharmD [address] [place] [address] Pharmacist Internal Medicine 05/05/24 Basilio Hall MD [address] [place] [address] Cardiology 05/17/24 Ron Preciado MD [address] [place] [address] Pulmonary Disease 05/17/24 documented as of this encounter
--- OUTSIDE RECORDS SUMMARY | 2024-12-22 10:28 | XMS_ITS | Encounter Summary ---
Author Organization [employer] Address 75 [facility] 7t [place] [address] Care Team Providers Care Pump Stitcher Name Role Phone Anthony Ruiz Primary Care Provider [phone] Yuri Pierre PharmD Unavailable [phone] Basilio Hall MD Unavailable [phone] Ron Preciado MD Unavailable [phone] Encounter Details Date Type Department Care Team (Late st Contact Info) Description 09/28/2024 Orders Only [facility] MEDICINE 230 [place] [address] Anthony Ruiz ANP 230 [place] [address] Social History Tobacco Use Types Packs/Day Years [...] 12/27/2024 11:00 AM EST Medication Management [address] [address] Yuri Pierre, Dileep [address] [place] [address] 01/07/2025 9:30 AM EST Clinical Support [address] [address] Azeb Hall, MARTIN 505 [place] [address] 01/11/2025 1:00 PM EST Office Visit [address] [address] Anthony Ruiz ANP [address] [place] [address] 02/03/2025 11:00 AM EST Medication Management [address] [address] Yuri Pierre, PharmD [address] [place] [address] documented as of this encounter Goals Goal Patient Goal Type Associated Problems Recent Progress Patient-Stated? Author Blood Pressure < 140/90 Blood Pressure 125/85(2024 12:36 PM EDT) No Aida Ragland, MikeD Record Your [...] PM EDT Narrative 10/09/2024 1:20 PM EDT [place] [address] [address] Scan Report Signed Patient: Nuvia Fay MR #: [id number] : 1960 Acct:[id number] Age/Sex: 64 / F ADM Date: 10/08/24 Loc: .CT Attending Dr: Ron Preciado MD Ordering Physician: Ron Preciado MD Date of Service: 10/08/24 Procedure(s): CT lung screening Accession Number(s): [id number] cc: Ron Preciado MD; ANTHONY RUIZ NP Report Number: [id number]: Total DLP = 64.00 mGy-cm CLINICAL HISTORY: [...] 10/09/24 1319 DD/ 1318 TD/TT: 10/09/24 1318 Hospital Clinic Assistant: Procedure Note Donotuseinterpreter, Image - 10/09/[address] [address] [address] Scan Report Signed Patient: Nuvia Fay EMR #: [id number] : 1Acct:[id number] Age/Sex: 64 / FADM Date: 10/08/24 Loc: HO.CT Attending Dr: Ron Preciado MD Ordering Physician: Ron Preciado MD Date of Service: 10/08/24 Procedure(s): CT lung screening Accession Number(s): [id number] cc: Ron Preciado MD; ANTHONY RUIZ NP Report Number: [id number]: Total DLP = 64.00 mGy-cm CLINICAL HISTORY: [...] 10/09/24 1319 DD/ 1318 TD/TT: 10/09/24 1318 Hospital Clinic Assistant: [facility] External Provider IMG CT PROCEDURES Edited Result - Final documented in this encounter Visit Diagnoses Not on filedocumented in this encounter Additional Health Concerns Assessment Noted Time PHQ-9 Depression Total Score: 12 024 2:58 PM EDT documented as of this encounter Care Teams Pump Stitcher Relationship Specialty Start Date End Date Anthony Ruiz, ANP 230 [place] [address] PCP - General Family Medicine 09/23/19 Yuri Pierre, MikeD 230 [place] [address] Pharmacist Internal Medicine 05/05/24 Basilio Hall MD 596 [place] [address] Cardiology 05/17/24 Ron Preciado MD [address] [place] [address] Pulmonary Disease 05/17/24 documented as of this encounter
--- OUTSIDE RECORDS SUMMARY | 2024-12-22 10:28 | XMS_ITS | Encounter Summary ---
Author Organization [employer] Address 75 [facility] 7t [place] [address] Care Team Providers Care Screed Person Name Role Phone Sariah Vickers Primary Care Provider [phone] Yuri Pierre PharmD Unavailable [phone] Basilio Hall MD Unavailable [phone] Ron Preciado MD Unavailable [phone] Reason for Visit * Reason Comments Med Refill Encounter Details Date Type Department Care Team (Late st Contact Info) Description 03/07/2023 Refill [facility] MEDICINE 230 [place] [address] Sariah Vickers ANP 230 [place] [address] Vertigo Social History Tobacco Use Types Packs/Day [...] Description 12/27/2024 11:00 AM EST Medication Management [address] [address] Yuri Pierre, PharmD [address] [place] [address] 01/07/2025 9:30 AM EST Clinical Support [address] [address] Azeb Hall, RN 505 [place] [address] 01/11/2025 1:00 PM EST Office Visit [address] [address] Sariah Vickers ANP [address] [place] [address] 02/03/2025 11:00 AM EST Medication Management [address] [address] Yuri Pierre, PharmD [address] [place] [address] documented as of this encounter Goals Goal [...] giddiness documented in this encounter Care Teams Screed Person Relationship Specialty Start Date End Date Sariah Vickers ANP 230 [place] [address] PCP - General Family Medicine 09/23/19 Yuri Pierre, MikeD [address] [place] [address] Pharmacist Internal Medicine 05/05/24 Basilio Hall MD 596 [place] [address] Cardiology 05/17/24 Ron Preciado MD [address] [place] [address] Pulmonary Disease 05/17/24 documented as of this encounter
--- OUTSIDE RECORDS SUMMARY | 2024-12-22 10:28 | XMS_ITS | Encounter Summary ---
Author Organization [employer] Address 75 [facility] 7t [place] [address] Care Team Providers Care Cinder Block Mason Name Role Phone Sariah Vickers Primary Care Provider [phone] Yuri Pierre PharmD Unavailable [phone] Basilio Hall MD Unavailable [phone] Ron Preciado MD Unavailable [phone] Reason for Visit * Reason Onset Date Comments Med Refill 03/04/2023 Encounter Details Date Type Department Care Team (Late st Contact Info) Description 03/04/2023 Telephone [facility] MEDICINE 230 [place], [place] [phone] Sariah Vickers ANP 230 [place], [place] [phone] Med Refill Social History Tobacco Use Types [...] 50 MG tablet To be sent to: [facility] [place], [place] - [address] [place] [address] documented in this encounter Plan of Treatment Upcoming Encounters Date Type Department Care Team ([facility] st Contact Info) Description 12/27/2024 11:00 AM EST Medication Management [address] [address] Yuri Pierre, PharmD [address] [place] [address] 01/07/2025 9:30 AM EST Clinical Support [address] [address] Azeb Hall RN 505 [place] [address] 01/11/2025 1:00 PM EST Office Visit [address] [address] Sariah Vickers, ANP [address] [place] [address] 02/03/2025 11:00 AM EST Medication Management [facility] MEDICINE [address] [place], [place] [phone] Yuri Pierre, PharmD 230 [place], [place] documented as of this encounter Goals [...] on filedocumented in this encounter Care Teams Cinder Block Mason Relationship Specialty Start Date End Date Sariah Vickers ANP 230 [place] [address] PCP - General Family Medicine 09/23/19 Yuri Pierre, PharmD 230 [place] [address] Pharmacist Internal Medicine 05/05/24 Basilio Hall MD [address] [place] [address] Cardiology 05/17/24 Ron Preciado MD [address] [place] [address] Pulmonary Disease 05/17/24 documented as of this encounter
--- OUTSIDE RECORDS SUMMARY | 2024-12-22 10:29 | XMS_ITS | Encounter Summary ---
Author Organization [employer] Address 75 [facility] 7t [place] [address] Care Team Providers Care Molder Closed Molds Name Role Phone Sariah Vickers Primary Care Provider [phone] Yuri Pierre PharmD Unavailable [phone] Basilio Hall MD Unavailable [phone] Ron Preciado MD Unavailable [phone] Encounter Details Date Type Department Care Team (Late st Contact Info) Description 12/20/2024 Refill [facility] MEDICINE 230 [place] [address] Sariah Vickers ANP 230 [place] [address] Chronic SI joint pain Social History Tobacco [...] 12/27/2024 11:00 AM EST Medication Management [address] [address] Yuri Pierre, PharmD [address] [place] [address] 01/07/2025 9:30 AM EST Clinical Support [address] [address] Azeb Hall, MARTIN 505 [place] [address] 01/11/2025 1:00 PM EST Office Visit [address] [address] Sariah Vickers ANP [address] [place] [address] 02/03/2025 11:00 AM EST Medication Management [address] [address] Yuri Pierre, PharmD [address] [place] [address] documented as of this encounter Goals Goal [...] documented as of this encounter Care Teams Molder Closed Molds Relationship Specialty Start Date End Date Sariah Vickers ANP 230 [place] [address] PCP - General Family Medicine 09/23/19 Yuri Pierre, MikeD 230 [place] [address] Pharmacist Internal Medicine 05/05/24 Basilio Hall MD 596 [place] [address] Cardiology 05/17/24 Ron Preciado MD [address] [place] [address] Pulmonary Disease 05/17/24 documented as of this encounter
--- OUTSIDE RECORDS SUMMARY | 2024-12-22 10:29 | XMS_ITS | Encounter Summary ---
Author Organization [employer] Address [address] [facility] [address] 7t [place] [address] Care Team Providers Care Network Security Administrator Name Role Phone Anthony Ruiz KAYLEE Primary Care Provider [phone] Yuri Pierre PharmD Unavailable [phone] Basilio Hall MD Unavailable [phone] Ron Preciado MD Unavailable [phone] Encounter Details Date Type Department Care Team (Late st Contact Info) Description 12/18/2024 Orders Only GENERIC EXTERNAL DATA DEPARTMENT [...] Description 12/27/2024 11:00 AM EST Medication Management [address] [address] Yuri Pierre, PharmD [address] [place] [address] 01/07/2025 9:30 AM EST Clinical Support [address] [address] Azeb Hall, RN 505 [place] [address] 01/11/2025 1:00 PM EST Office Visit [address] [address] Anthony Ruiz ANP [address] [place] [address] 02/03/2025 11:00 AM EST Medication Management [address] [address] Yuri Pierre, PharmD [address] [place] [address] documented as of this encounter Goals Goal Patient Goal Type Associated Problems Recent Progress Patient-Stated? Author Blood Pressure < 140/90 Blood Pressure 125/85(2024 12:36 PM EDT) No Piers-Gambl ciara, Aida, PharmD Record Your Blood Sugar [...] URINE, ROUTINE Routine 12/18/2024 12:00 AM EDT documented in this encounter Results * CT Abdomen Pelvis w/ Contrast (12/18/2024 9:02 AM EDT) Anatomical Region Laterality Modality Body, Pelvis, Abdomen Computed T omography 12/18/2024 9:02 AM EDT Narrative 12/18/2024 9:03 AM EDT [place] [address] CT Scan Report Signed Patient: Nuvia Fay MR #: [id number] : 1960 Acct:[id number] Age/Sex: 64 / F ADM Date: 12/18/24 Loc: HO.ED Attending Dr: Ordering Physician: Kourtney Jones MD Date of Service: 12/18/24 Procedure(s): CT abdomen pelvis w IV con Accession Number(s): [id number] cc: Kourtney Jones MD; ANTHONY RUIZ NP Report Number: [id number]: Total DLP = 609.00 mGy-cm Reason for [...] in OV> 12/18/24901 DD/ 1 TD/TT: 12/18/24901 Nurse College: Procedure Note Donotuseinterpreter, Image - 12/18/[address] [place] [address] [address] Scan Report Signed Patient: Nuvia Fay EMR #: [id number] : 1960cct:[id number] Age/Sex: 64 / FADM Date: 12/18/24 Loc: HO.ED Attending Dr: Ordering Physician: Kourtney Jones MD Date of Service: 12/18/24 Procedure(s): CT abdomen pelvis w IV con Accession Number(s): [id number] cc: Kourtney Jones MD; ANTHONY RUIZ NP Report Number: [id number]: Total DLP = 609.00 mGy-cm Reason for [...] in OV> 12/18/24901 DD/ 1 TD/TT: 12/18/24901 Nurse College: [facility] External Provider IMG CT PROCEDURES Edited Result - Final * (ABNORMAL) Urinalysis, Complete, with Reflex to Culture (12/18/2024 8:21 AM EDT) Color Urine Yellow [facility] Appearance Urine Clear [facility] PH 7.0 5.0 - 9.0 [facility] Glucose Urine UA Negative Negative mg/dL [facility] Urine Blood Negative Negative [facility] Specific [place] - Urine 1.025 1.005 - 1.025 [facility] Urine Protein Negative Neg-Trace mg/dL [facility] Urine Ketones Negative Negative mg/dL [facility] Nitrite Urine Negative Negative [facility] Leukocyte Esterase Urine Small (1+)(A) Negative [facility] RBC Urine 0-2 0 - 2 /HPF [facility] Urine WBC 0-5 0 - 5 /HPF [facility] Urine Squamous Epithelial Cell 0-2 0 - 2 /HPF [facility] Urine Bacteria None Seen None Seen [facility] Hyaline Casts, Urine 0-2 0 - 2 /LPF [facility] 12/18/2024 8:21 AM EDT 12/18/2024 8:26 AM EDT Narrative [facility] - 12/18/2024 8:45 AM EDT [id number], Clean Catch us Generic External Data Provider LAB URINE ORDERAB LES Final Result [facility] [address] [place] [phone] * XR Chest 1 View (12/18/2024 7:39 AM EDT) Anatomical Region Laterality Modality Chest Radiographic Griselda ging 12/18/2024 7:39 AM EDT Narrative 12/18/2024 7:42 AM EDT [address] [address] XRay Report Signed Patient: Nuvia Fay MR #: [id number] : 1960 Acct:[id number] Age/Sex: 64 / F ADM Date: 12/18/24 Loc: .ED Attending Dr: Ordering Physician: Kourtney Jones MD Date of Service: 12/18/24 Procedure(s): XR chest 1V Accession Number(s): [id number] cc: Kourtney Jones MD; ANTHONY RUIZ NP [...] signed by Whitney Price MD in OV> 12/18/24 0741 DD/ 8 TD/TT: 12/18/24738 Nurse College: Procedure Note Donotuseinterpreter, Image - 12/18/[address] [address] XRay Report Signed Patient: Nuvia Fay EMR #: [id number] : 1Acct:[id number] Age/Sex: 64 / FADM Date: 12/18/24 Loc: HO.ED Attending Dr: Ordering Physician: Kourtney Jones MD Date of Service: 12/18/24 Procedure(s): XR chest 1V Accession Number(s): [id number] cc: Kourtney Jones MD; ANTHONY RUIZ NP [...] signed by Whitney Price MD in OV> 12/18/24 0741 DD/ TD/TT: 12/18/24 0739 Nurse College: [facility] External Provider IMG XR PROCEDURES Edited Result - Final * Culture, Urine, Routine (12/18/2024 12:00 AM EDT) Urine Urine specimen obtained by clean catch procedure / Unknown 12/18/2024 12/18/2024 Comment:UACC Narrative [facility] - 12/19/2024 12:44 PM EST Urine Culture Report Result Urine Culture 10,000 to 50,000 cfu/ml Urine Culture Mixed bacterial yady characteristic of Urine Culture urogenital contamination. Specimen Source: Urine clean catch Generic External Data Provider LAB MICROBIOLOGY - GENERAL ORDERABLES Final Result [facility] [address] [place] [address] [phone] documented in this encounter Visit Diagnoses Not on filedocumented in this encounter Additional Health Concerns Assessment Noted Time PHQ-9 Depression Total Score: 025 5:30 PM EDT documented as of this encounter Care Teams Network Security Administrator Relationship Specialty Start Date End Date Anthony Ruiz ANP 230 [place] [address] PCP - General Family Medicine 09/23/19 Yuri Pierre, MikeD 230 [place] [address] Pharmacist Internal Medicine 05/05/24 Basilio Hall MD [address] [place] [address] Cardiology 05/17/24 Ron Preciado MD [address] [place] [address] Pulmonary Disease 05/17/24 documented as of this encounter
--- OUTSIDE RECORDS SUMMARY | 2024-12-22 10:29 | XMS_ITS | Encounter Summary ---
Author Organization [employer] Address 75 [facility] 7t [place] [address] Care Team Providers Care Analytical Manager Name Role Phone Sariah Vickers Primary Care Provider [phone] Yuri Pierre PharmD Unavailable [phone] Basilio Hall MD Unavailable [phone] Ron Preciado MD Unavailable [phone] Reason for Visit * Reason Comments Med Refill Encounter Details Date Type Department Care Team (Late st Contact Info) Description 05/23/2024 Refill [facility] MED & PEDS [address] [place] [address] Sariah Vickers ANP 230 [place] [address] Cervicalgia Social History Tobacco Use Types Packs/Day [...] is your housing situation today? I have rodriog kent 06/23/[address] you [...] 12/27/2024 11:00 AM EST Medication Management [address] [address] Yuri Pierre, PharmD [address] [place] [address] 01/07/2025 9:30 AM EST Clinical Support [address] [address] Azeb Hall, MARTIN 505 [place] [address] 01/11/2025 1:00 PM EST Office Visit [address] [address] Sariah Vickers, KAYLEE [address] [place] [address] 02/03/2025 11:00 AM EST Medication Management [address] [address] Yuri Pierre, PharmD [address] [place] [address] documented as of this encounter Goals Goal [...] documented as of this encounter Care Teams Analytical Manager Relationship Specialty Start Date End Date Sariah Vickers ANP 230 [place] [address] PCP - General Family Medicine 09/23/19 Yuri Pierre PharmD 230 [place] [address] Pharmacist Internal Medicine 05/05/24 Basilio Hall MD [address] [place] [address] Cardiology 05/17/24 Ron Preciado MD [address] [place] [address] Pulmonary Disease 05/17/24 documented as of this encounter
--- OUTSIDE RECORDS SUMMARY | 2024-12-22 10:29 | XMS_ITS | Encounter Summary ---
Author Organization [employer] Address 75 [facility] 7t [place] [address] Care Team Providers Care Able Seaman Name Role Phone Sariah Vickers Primary Care Provider [phone] Yuri Pierre PharmD Unavailable [phone] Basilio Hall MD Unavailable [phone] Ron Preciado MD Unavailable [phone] Reason for Visit * Reason Comments Med Refill Encounter Details Date Type Department Care Team (Late st Contact Info) Description 07/10/2022 Refill [facility] MEDICINE 230 [place] [address] Sariah Vickers ANP 230 [place] [address] Vertigo Social History Tobacco Use Types Packs/Day [...] Description 12/27/2024 11:00 AM EST Medication Management [address] [address] Yuri Pierre, PharmBear [address] [place] [address] 01/07/2025 9:30 AM EST Clinical Support [address] [address] Azeb Hall RN 505 [place] [address] 01/11/2025 1:00 PM EST Office Visit [address] [address] Sariah Vickers ANP [address] [place] [address] 02/03/2025 11:00 AM EST Medication Management [address] [address] Yuri Pierre, Dileep [address] [place] [address] documented as of this encounter Visit Diagnoses Diagnosis Vertigo Dizziness and giddiness documented in this encounter Care Teams Able Seaman Relationship Specialty Start Date End Date Sariah Vickers ANP [address] [place] [address] PCP - General Family Medicine 09/23/19 Yuri Pierre, PharmD [address] [place] [address] Pharmacist Internal Medicine 05/05/24 Basilio Hall MD 596 [place] [address] Cardiology 05/17/24 Ron Preciado MD [address] [place], [place] [address] Pulmonary Disease 05/17/24 documented as of this encounter
--- OUTSIDE RECORDS SUMMARY | 2024-12-22 10:29 | XMS_ITS | Encounter Summary ---
Author Organization [employer] Address 75 [facility] 7t [place] [address] Care Team Providers Care Hydroelectric Production Manager Name Role Phone Sariah Vickers Primary Care Provider [phone] Yuri Pierre PharmD Unavailable [phone] Basilio Hall MD Unavailable [phone] Ron Preciado MD Unavailable [phone] Reason for Visit * Reason Comments Med Refill Encounter Details Date Type Department Care Team (Late st Contact Info) Description 07/10/2023 Refill [facility] 230 [place] [address] Sariah Vickers ANP 230 [place], [place] [phone] Chronic SI joint pain Social History Tobacco [...] Description 12/27/2024 11:00 AM EST Medication Management [address] [address] Yuri Pierre, PharmD [address] [place] [address] 01/07/2025 9:30 AM EST Clinical Support [address] [address] Azeb Hall, MARTIN 505 [place] [address] 01/11/2025 1:00 PM EST Office Visit [address] [address] Sariah Vickers, ANP [address] [place] [address] 02/03/2025 11:00 AM EST Medication Management [address] [address] Yuri Pierre, PharmD [address] [place] [address] documented as of this encounter Goals Goal [...] documented as of this encounter Care Teams Hydroelectric Production Manager Relationship Specialty Start Date End Date Sariah Vickers ANP 230 [place] [address] PCP - General Family Medicine 09/23/19 Yuri Pierre, MikeD 230 [place] [address] Pharmacist Internal Medicine 05/05/24 Basilio Hall MD [address] [place] [address] Cardiology 05/17/24 Ron Preciado MD [address] [place] [address] Pulmonary Disease 05/17/24 documented as of this encounter
--- OUTSIDE RECORDS SUMMARY | 2024-12-22 10:29 | XMS_ITS | Encounter Summary ---
Author Organization [employer] Address 75 [facility] 7t [place] [address] Care Team Providers Care Cartridge Filler Name Role Phone Sariah Vickers Primary Care Provider [phone] Yuri Pierre PharmD Unavailable [phone] Basilio Hall MD Unavailable [phone] Ron Preciado MD Unavailable [phone] Reason for Visit * Reason Comments Med Refill Encounter Details Date Type Department Care Team (Late st Contact Info) Description 08/14/2022 Refill [facility] CH[facility] MED & PEDS [address] [place] [address] Sariah Vickers ANP 230 [place] [address] Severe persistent asthma without complication Social History [...] Description 12/27/2024 11:00 AM EST Medication Management [address] [address] Yuri Pierre, PharmBear [address] [place] [address] 01/07/2025 9:30 AM EST Clinical Support [address] [address] Azeb Hall RN 505 [place] [address] 01/11/2025 1:00 PM EST Office Visit [address] [address] Sariah Vickers ANP [address] [place] [address] 02/03/2025 11:00 AM EST Medication Management [address] [address] Yuri Pierre PharmBear [address] [place] [address] documented as of this encounter Visit Diagnoses Diagnosis Severe persistent asthma without complication (HCC) documented in this encounter Care Teams Cartridge Filler Relationship Specialty Start Date End Date Sariah Vickers ANP [address] [place] [address] PCP - General Family Medicine 09/23/19 Yuri Pierre, PharmD [address] [place] [address] Pharmacist Internal Medicine 05/05/24 Basilio Hall MD 596 [place] [address] Cardiology 05/17/24 Ron Preciado MD [address] [place] [address] Pulmonary Disease 05/17/24 documented as of this encounter
--- OUTSIDE RECORDS SUMMARY | 2024-12-22 10:29 | XMS_ITS | Encounter Summary ---
Author Organization [employer] Address 75 [facility] 7t [place] [address] Care Team Providers Care Garment Parts Cutter Hand Name Role Phone Sariah Vickers Primary Care Provider [phone] Yuri Pierre PharmD Unavailable [phone] Basilio Hall MD Unavailable [phone] Ron Preciado MD Unavailable [phone] Reason for Visit * Reason Comments Med Refill Encounter Details Date Type Department Care Team (Late st Contact Info) Description 07/12/2022 Refill [facility] MEDICINE 230 [place] [address] Sariah Vickers ANP 230 [place] [address] Social History Tobacco Use Types Packs/Day Years [...] Description 12/27/2024 11:00 AM EST Medication Management [address] [address] Yuri Pierre, PharmD [address] [place] [address] 01/07/2025 9:30 AM EST Clinical Support [address] [address] Azeb Hall RN 505 [place] [address] 01/11/2025 1:00 PM EST Office Visit [address] [address] Sariah Vickers ANP [address] [place] [address] 02/03/2025 11:00 AM EST Medication Management [address] [address] Yuri Pierre, PharmBear [address] [place] [address] documented as of this encounter Visit Diagnoses Not on filedocumented in this encounter Care Teams Garment Parts Cutter Hand Relationship Specialty Start Date End Date Sariah Vickers ANP [address] [place] [address] PCP - General Family Medicine 09/23/19 Yuri Pierre, PharmD [address] [place] [address] Pharmacist Internal Medicine 05/05/24 Basilio Hall MD 596 [place] [address] Cardiology 05/17/24 Ron Preciado MD [address] [place] [address] Pulmonary Disease 05/17/24 documented as of this encounter
--- OUTSIDE RECORDS SUMMARY | 2024-12-22 10:29 | XMS_ITS | Encounter Summary ---
Author Organization [employer] Address 75 [facility] 7t [place] [address] Care Team Providers Care Certified Professional Controller Name Role Phone Sariah Vickers Primary Care Provider [phone] Yuri Pierre PharmD Unavailable [phone] Basilio Hall MD Unavailable [phone] Ron Preciado MD Unavailable [phone] Reason for Visit * Reason Onset Date Comments ER Follow-up 12/20/2024 Encounter Details Date Type Department Care Team (Late st Contact Info) Description 12/20/2024 Telephone [facility] MEDICINE 230 [place] [address] Sariah Vickers ANP 230 [place], [place] [phone] ER Follow-up Social History Tobacco Use Types [...] Encounter - Candy Bains RN - 12/21/2024 1:51 PM EST Telephone call placed to pt for ED status check utilizing BLS #[id number]. Pt reports she went to the EDfor stomach pain, had imaging and labs and there were no findings other than that she has COVID. Ptstates she was very surprised. Today she is feeling much better and has no concerns. Is currently drinking gingerale and eating crackers. Pt advised to follow up as needed if symptoms don't resolve or if they worsen. Pt verbalized understanding and denied having any further questions or concerns atthis time. * Telephone Encounter - Mehul Spencer - 12/20/2024 1:27 PM EST Patient calling to report ED visit on : Date: 12/18/24 Hospital: [facility] Seen for: Stomach pain Symptomatic No *if yes message should go to Triage DIAGNOSIS with Covid Not provided medication Patient advised will forward to team nurse for follow up documented in this encounter Plan of Treatment Upcoming Encounters Date Type Department Care Team (Late st Contact Info) Description 12/27/2024 11:00 AM EST Medication Management [address] [address] Yuri Pierre PharmD [address] [place] [address] 01/07/2025 9:30 AM EST Clinical Support [address] [address] Azeb Hall RN 505 [place] [address] 01/11/2025 1:00 PM EST Office Visit [address] [address] Sariah Vickers ANP [address] [place] [address] 02/03/2025 11:00 AM EST Medication Management [address] [address] Yuri Pierre PharmD [address] [place] [address] documented as of this encounter Goals Goal [...] as of this encounter Care Teams Certified Professional Controller Relationship Specialty Start Date End Date Sariah Vickers ANP 230 [place] [address] PCP - General Family Medicine 09/23/19 Yuri Pierre, MikeD 230 [place] [address] Pharmacist Internal Medicine 05/05/24 Basilio Hall MD 596 [place] [address] Cardiology 05/17/24 Ron Preciado MD [address] [place] [address] Pulmonary Disease 05/17/24 documented as of this encounter
--- OUTSIDE RECORDS SUMMARY | 2024-12-22 10:29 | XMS_ITS | Encounter Summary ---
Author Organization [employer] Address 75 [facility] 7t [place] [address] Care Team Providers Care Outdoor Adventure Guides Name Role Phone Sariah Vickers Primary Care Provider [phone] Yuri Pierre PharmD Unavailable [phone] Basilio Hall MD Unavailable [phone] Ron Preciado MD Unavailable [phone] Reason for Visit * Reason Comments Med Refill Encounter Details Date Type Department Care Team (Late st Contact Info) Description 12/21/2024 Refill [facility] 230 [place] [address] Sariah Vickers ANP 230 [place] [address] Social History Tobacco Use Types Packs/Day Years [...] Description 12/27/2024 11:00 AM EST Medication Management [address] [address] Yuri Pierre, MikeD [address] [place] [address] 01/07/2025 9:30 AM EST Clinical Support [address] [address] Azeb Hall, MARTIN 505 [place] [address] 01/11/2025 1:00 PM EST Office Visit [address] [address] Sariah Vickers, KAYLEE [address] [place] [address] 02/03/2025 11:00 AM EST Medication Management [address] [address] Yuri Pierre, PharmD [address] [place] [address] [place] [address] documented as of this encounter Goals Goal [...] documented as of this encounter Care Teams Outdoor Adventure Guides Relationship Specialty Start Date End Date Sariah Vickers ANP 230 [place] [address] PCP - General Family Medicine 09/23/19 Yuri Pierre, MikeD 230 [place] [address] Pharmacist Internal Medicine 05/05/24 Basilio Hall MD 596 [place] [address] Cardiology 05/17/24 Ron Preciado MD [address] [place] [address] Pulmonary Disease 05/17/24 documented as of this encounter
--- OUTSIDE RECORDS SUMMARY | 2024-12-22 10:29 | XMS_ITS | Encounter Summary ---
Author Organization [employer] Address 75 [facility] 7t [place] [address] Care Team Providers Care Multiple Punch Press Operator Name Role Phone Sariah Vickers Primary Care Provider [phone] Yuri Pierre PharmD Unavailable [phone] Basilio Hall MD Unavailable [phone] Ron Preciado MD Unavailable [phone] Encounter Details Date Type Department Care Team (Late st Contact Info) Description 10/26/2024 Results Follow-Up [facility] MEDICINE 230 [place] [address] Sariah Vickers ANP 230 [place] [address] Thyroid Peroxidase Antibodies, Cardiolipin Antibodies (IgA,IgG,IgM) Social [...] 12/27/2024 11:00 AM EST Medication Management [address] [address] Yuri Pierre, PharmD [address] [place] [address] 01/07/2025 9:30 AM EST Clinical Support [address] [address] Azeb Hall RN 505 [place] [address] 01/11/2025 1:00 PM EST Office Visit [address] [address] Sariah Vickers ANP 230 [place] [address] 02/03/2025 11:00 AM EST Medication Management [facility] MEDICINE 230 [place] [address] Yuri Pierre, Dileep 230 [place] [address] documented as of this encounter Goals Goal [...] documented as of this encounter Care Teams Multiple Punch Press Operator Relationship Specialty Start Date End Date Sariah Vickers ANP 230 [place] [address] PCP - General Family Medicine 09/23/19 Yuri Pierre, PharmD [address] [place] [address] Pharmacist Internal Medicine 05/05/24 Basilio Hall MD 596 [place] [address] Cardiology 05/17/24 Ron Preciado MD [address] [place] [address] Pulmonary Disease 05/17/24 documented as of this encounter
--- OUTSIDE RECORDS SUMMARY | 2024-12-22 10:29 | XMS_ITS | Encounter Summary ---
Author Organization [employer] Address 75 [facility] 7t [place] [address] Care Team Providers Care Pbx Repairer Name Role Phone Sariah Vickers Primary Care Provider [phone] Yuri Pierre PharmD Unavailable [phone] Basilio Hall MD Unavailable [phone] Ron Preciado MD Unavailable [phone] Reason for Visit * Reason Onset Date Comments Med Refill Durable Medical Equipment 07/15/2023 Foam M attress/Raised Toilet Seat Encounter Details Date Type Department Care Team (Late st Contact Info) Description 07/15/2023 Refill [facility] MEDICINE 230 [place], [place] [phone] Sariah Vickers ANP 230 [place] [address] Neck pain Social History Tobacco Use Types [...] request sent via email by [facility] Sewer Connector Arlin Baker. Please Advise. Good morning, Our [...] Description 12/27/2024 11:00 AM EST Medication Management [facility] 230 [place] [address] Yuri Pierre, PharmD [address] [place] [address] 01/07/2025 9:30 AM EST Clinical Support [address] [address] Azeb Hall RN 505 [place] [address] 01/11/2025 1:00 PM EST Office Visit [address] [address] Sariah Vickers ANP [address] [place] [address] 02/03/2025 11:00 AM EST Medication Management [address] [phone] Yuri Pierre PharmD [address] [place] [address] documented as of this encounter Goals Goal [...] documented as of this encounter Care Teams Pbx Repairer Relationship Specialty Start Date End Date Sariah Vickers ANP [address] [place] [address] PCP - General Family Medicine 09/23/19 Yuri Pierre PharmD [address] [place] [address] Pharmacist Internal Medicine 05/05/24 Basilio Hall MD 596 [place] [address] Cardiology 05/17/24 Ron Preciado MD [address] [place] [address] Pulmonary Disease 05/17/24 documented as of this encounter
--- OUTSIDE RECORDS SUMMARY | 2024-12-22 10:29 | XMS_ITS | Encounter Summary ---
Author Organization [employer] Address 75 [facility] 7t [place] [address] Care Team Providers Care Pipe Assembly Worker Name Role Phone Sariah Vickers Primary Care Provider [phone] Yuri Pierre PharmD Unavailable [phone] Basilio Hall MD Unavailable [phone] Ron Preciado MD Unavailable [phone] Reason for Visit * Reason Comments Med Refill Encounter Details Date Type Department Care Team (Late st Contact Info) Description 07/17/2022 Refill [facility] MEDICINE 230 [place] [address] Sariah Vickers ANP 230 [place] [address] Neck pain Social History Tobacco Use Types [...] 12/27/2024 11:00 AM EST Medication Management [address] [address] Yuri Pierre, PharmD [address] [place] [address] 01/07/2025 9:30 AM EST Clinical Support [address] [address] Azeb Hall RN 505 [place] [address] 01/11/2025 1:00 PM EST Office Visit [address] [address] Sariah Vickers ANP [address] [place] [address] 02/03/2025 11:00 AM EST Medication Management [address] [address] Yuri Pierre, PharmBear [address] [place] [address] documented as of this encounter Visit Diagnoses Diagnosis Neck pain Cervicalgia documented in this encounter Care Teams Pipe Assembly Worker Relationship Specialty Start Date End Date Sariah Vickers ANP [address] [place] [address] PCP - General Family Medicine 09/23/19 Yuri Pierre, PharmD [address] [place] [address] Pharmacist Internal Medicine 05/05/24 Basilio Hall MD 5[address] [place] [address] Cardiology 05/17/24 Ron Preciado MD [address] [place] [address]40 Pulmonary Disease 05/17/24 documented as of this encounter
--- OUTSIDE RECORDS SUMMARY | 2024-12-22 10:29 | XMS_ITS | Encounter Summary ---
Author Organization [employer] Address 75 [facility] 7t [place] [address] Care Team Providers Care Salvage Winder And Inspector Name Role Phone Sariah Vickers Primary Care Provider [phone] Yuri Pierre PharmD Unavailable [phone] Basilio Hall MD Unavailable [phone] Ron Preciado MD Unavailable [phone] Reason for Visit * Reason Comments Med Refill Encounter Details Date Type Department Care Team (Late st Contact Info) Description 05/21/2023 Refill [facility] MEDICINE 230 [place] [address] Sariah Vickers ANP 230 [place] [address] Neck pain Social History Tobacco Use Types [...] Description 12/27/2024 11:00 AM EST Medication Management [address] [address] Yuri Pierre, PharmD [address] [place] [address] 01/07/2025 9:30 AM EST Clinical Support [address] [address] Azeb Hall, MARTIN 505 [place] [address] 01/11/2025 1:00 PM EST Office Visit [address] [address] Sariah Vickers, KAYLEE [address] [place] [address] 02/03/2025 11:00 AM EST Medication Management [address] [place] [address] Yuri Pierre, PharmD 230 [place] [address] documented as of this encounter Goals Goal Patient Goal Type Associated Problems Recent Progress Patient-Stated? Author Blood Pressure < 140/90 Blood Pressure 125/85(2024 12:36 PM EDT) No PhanisAida Cheng, PharmD Record Your Blood Sugar As Directed General No Phanis-Veronica Medinasa, PharmD Hemoglobin A1c < 7 Result Component 6.6( 1:54 PM EDT) No PhanisAida Cheng PharmD documented as of this encounter Visit Diagnoses Diagnosis Neck pain Cervicalgia documented in this encounter Care Teams Salvage Winder And Inspector Relationship Specialty Start Date End Date Sariah Vickers ANP 230 [place] [address] PCP - General Family Medicine 09/23/19 Yuri Pierre, PharmD 230 [place] [address] Pharmacist Internal Medicine 05/05/24 Basilio Hall MD [address] [place] [address] Cardiology 05/17/24 Ron Preciado MD [address] [place] [address] Pulmonary Disease 05/17/24 documented as of this encounter
--- OUTSIDE RECORDS SUMMARY | 2024-12-22 10:29 | XMS_ITS | Encounter Summary ---
Author Organization [employer] Address 75 [facility] 7t [place] [address] Care Team Providers Care Cook Taco Name Role Phone Sariah Vickers Primary Care Provider [phone] Yuri Pierre PharmD Unavailable [phone] Basilio Hall MD Unavailable [phone] Ron Preciado MD Unavailable [phone] Reason for Visit * Reason Comments Med Refill Encounter Details Date Type Department Care Team (Late st Contact Info) Description 06/30/2023 Refill [facility] MEDICINE 230 [place] [address] Sariah Vickers ANP 230 [place] [address] Neck pain Social History Tobacco Use Types [...] Description 12/27/2024 11:00 AM EST Medication Management [address] [address] Yuri Pierre, PharmD [address] [place] [address] 01/07/2025 9:30 AM EST Clinical Support [address] [address] Azeb Hall, MARTIN 505 [place] [address] 01/11/2025 1:00 PM EST Office Visit [address] [address] Sariah Vickers, KAYLEE [address] [place] [address] 02/03/2025 11:00 AM EST Medication Management [address] [address] Yuri Pierre, PharmD [address] [place] [address] documented as of this encounter Goals Goal [...] documented as of this encounter Care Teams Cook Taco Relationship Specialty Start Date End Date Sariah Vickers ANP 230 [place] [address] PCP - General Family Medicine 09/23/19 Yuri Pierre PharmD 230 [place] [address] Pharmacist Internal Medicine 05/05/24 Basilio Hall MD [address] [place] [address] Cardiology 05/17/24 Ron Preciado MD [address] [place] [address] Pulmonary Disease 05/17/24 documented as of this encounter
== END 2024-12-22 09:26 | disposition home or self-care (01) ==
LOC: HO.HMGAL 09:25
PROVIDERS: PCP Nurse Practitioner Primary Care; Visit Provider Registered Nurse Emergency
DX: J30.89 Other allergic rhinitis (principal)
CPT/HCPCS: 95117; 95165

== ENCOUNTER 2024-12-27 09:04 | Outpatient (AMB) | payer OTHER, SELFPAY ==
--- OUTSIDE RECORDS SUMMARY | 2024-12-27 09:42 | XMS_ITS | Encounter Summary ---
Author Organization [employer] Address 75 [facility] 7t [place] [address] Care Team Providers Care Flour Distributor Name Role Phone Sariah Vickers Primary Care Provider [phone] Yuri Pierre PharmD Unavailable [phone] Basilio Hall MD Unavailable [phone] Ron Preciado MD Unavailable [phone] Reason for Visit * Reason Comments Med Refill Encounter Details Date Type Department Care Team (Late st Contact Info) Description 09/13/2022 Refill [facility] [address] [place] [address] Sariah Vickers ANP 230 [place] [address] Severe persistent allergic asthma without complication Social [...] 12/27/2024 11:00 AM EST Medication Management [address] [address] Yuri Pierre, Dileep [address] [place] [address] 01/07/2025 9:30 AM EST Clinical Support [address] [address] Azeb Hall RN 505 [place] [address] 01/11/2025 1:00 PM EST Office Visit [address] [address] Sariah iVckers ANP [address] [place] [address] 02/03/2025 11:00 AM EST Medication Management [address] [address] Yuri Pierre PharmD [address] [place] [address] documented as of this encounter Visit Diagnoses Diagnosis Severe persistent allergic asthma without complication (HCC) documented in this encounter Care Teams Flour Distributor Relationship Specialty Start Date End Date Sariah Vickers ANP [address] [place] [address] PCP - General Family Medicine 09/23/19 Yuri Pierre, PharmD [address] [place] [address] Pharmacist Internal Medicine 05/05/24 Basilio Hall MD [address] [place] [address] Cardiology 05/17/24 Ron Preciado MD [address] [place] [address] Pulmonary Disease 05/17/24 documented as of this encounter
--- OUTSIDE RECORDS SUMMARY | 2024-12-27 09:42 | XMS_ITS | Encounter Summary ---
Author Organization [employer] Address 75 [facility] 7t [place] [address] Care Team Providers Care Liquor Maker Name Role Phone Sariah Vickers Primary Care Provider [phone] Yuri Pierre PharmD Unavailable [phone] Basilio Hall MD Unavailable [phone] Ron Preciado MD Unavailable [phone] Reason for Visit * Reason Comments Med Refill Encounter Details Date Type Department Care Team (Late st Contact Info) Description 03/09/2024 Refill [facility] PEDS [address] [place] [address] Sariah Vickers ANP 230 [place] [address] Neck pain Social History Tobacco Use Types [...] 12/27/2024 11:00 AM EST Medication Management [address] [address] Yuri Pierre, PharmD [address] [place] [address] 01/07/2025 9:30 AM EST Clinical Support [address] [address] Azeb Hall, MARTIN 505 [place] [address] 01/11/2025 1:00 PM EST Office Visit [address] [address] Sariah Vickers, KAYLEE [address] [place] [address] 02/03/2025 11:00 AM EST Medication Management [address] [address] Yuri Pierre, PharmD [address] [place] [address] documented as of this encounter Goals Goal [...] documented as of this encounter Care Teams Liquor Maker Relationship Specialty Start Date End Date Sariah Vickers ANP 230 [place] [address] PCP - General Family Medicine 09/23/19 Yuri Pierre, MikeD [address] [place] [address] Pharmacist Internal Medicine 05/05/24 Basilio Hall MD [address] [place] [address] Cardiology 05/17/24 Ron Preciado MD [address] [place] [address] Pulmonary Disease 05/17/24 documented as of this encounter
--- OUTSIDE RECORDS SUMMARY | 2024-12-27 09:42 | XMS_ITS | Encounter Summary ---
Author Organization [employer] Address 75 [facility] 7t [place] [address] Care Team Providers Care Two Way Radio Technician Name Role Phone Sariah Vickers Primary Care Provider [phone] Yuri Pierre PharmD Unavailable [phone] Basilio Hall MD Unavailable [phone] Ron Preciado MD Unavailable [phone] Reason for Visit * Reason Comments Med Refill Encounter Details Date Type Department Care Team (Late st Contact Info) Description 12/07/2024 Refill [facility] 230 [place] [address] Sariah Vickers ANP 230 [place] [address] Social History Tobacco Use Types Packs/Day Years [...] 12/27/2024 11:00 AM EST Medication Management [address] [address] Yuri Pierre, MikeD [address] [place] [address] 01/07/2025 9:30 AM EST Clinical Support [address] [address] Azeb Hall, MARTIN 505 [place] [address] 01/11/2025 1:00 PM EST Office Visit [address] [address] Sariah Vickers, KAYLEE [address] [place] [address] 02/03/2025 11:00 AM EST Medication Management [address] [address] Yuri Pierre, PharmD [address] [place] [address] [place] [address] documented as of this encounter Goals Goal [...] documented as of this encounter Care Teams Two Way Radio Technician Relationship Specialty Start Date End Date Sariah Vickers ANP 230 [place] [address] PCP - General Family Medicine 09/23/19 Yuri Pierre, MikeD 230 [place] [address] Pharmacist Internal Medicine 05/05/24 Basilio Hall MD 596 [place] [address] Cardiology 05/17/24 Ron Preciado MD [address] [place] [address] Pulmonary Disease 05/17/24 documented as of this encounter
--- OUTSIDE RECORDS SUMMARY | 2024-12-27 09:42 | XMS_ITS | Encounter Summary ---
Author Organization [employer] Address 75 [facility] 7t [place] [address] Care Team Providers Care Drink Waiter Name Role Phone Sariah Vickers Primary Care Provider [phone] Yuri Pierre PharmD Unavailable [phone] Basilio Hall MD Unavailable [phone] Ron Preciado MD Unavailable [phone] Encounter Details Date Type Department Care Team (Late Contact Info) Description 01/09/[address] [facility] [address] [place] [address] Dental, Provider, DDS Social History Tobacco Use [...] 12/27/2024 11:00 AM EST Medication Management [address] [address] Yuri Pierre, PharmD 230 [place] [address] 01/07/2025 9:30 AM EST Clinical Support [address] [address] Azeb Hall, MARTIN 505 [place] [address] 01/11/2025 1:[address] [facility] [address] [place] [address] Sariah Vickers ANP 230 [place] [address] 02/03/2025 11:00 AM EST Medication Management [facility] 230 [place] [address] Yuri Pierre, PharmD 230 [place] [address] documented as of this encounter Procedures Procedure [...] on filedocumented in this encounter Care Teams Drink Waiter Relationship Specialty Start Date End Date Sariah Vickers ANP 230 [place] [address] PCP - General Family Medicine 09/23/19 Yuri Pierre, MikeD 230 [place] [address] Pharmacist Internal Medicine 05/05/24 Basilio Hall MD 596 [place] [address] Cardiology 05/17/24 Ron Preciado MD [address] [place] [address] Pulmonary Disease 05/17/24 documented as of this encounter
--- OUTSIDE RECORDS SUMMARY | 2024-12-27 09:42 | XMS_ITS | Encounter Summary ---
Author Organization [employer] Address 75 [facility] 7t [place] [address] Care Team Providers Care Banjo Repair Person Name Role Phone Sariah Vickers Primary Care Provider [phone] Yuri Pierre PharmD Unavailable [phone] Basilio Hall MD Unavailable [phone] Ron Preciado MD Unavailable [phone] Reason for Visit * Reason Comments Med Refill Encounter Details Date Type Department Care Team (Late st Contact Info) Description 08/22/2023 Refill [facility] 230 [place] [address] Sariah Vickers ANP 230 [place] [address] Neck pain Social History Tobacco Use Types [...] Description 12/27/2024 11:00 AM EST Medication Management [address] [address] Yuri Pierre, PharmD [address] [place] [address] 01/07/2025 9:30 AM EST Clinical Support [address] [address] Azeb Hall, MARTIN 505 [place] [address] 01/11/2025 1:00 PM EST Office Visit [address] [address] Sariah Vickers, KAYLEE [address] [place] [address] 02/03/2025 11:00 AM EST Medication Management [address] [address] Yuri Pierre, PharmD [address] [place] [address] documented as of this encounter Goals Goal [...] documented as of this encounter Care Teams Banjo Repair Person Relationship Specialty Start Date End Date Sariah Vickers ANP 230 [place] [address] PCP - General Family Medicine 09/23/19 Yuri Pierre PharmD 230 [place] [address] Pharmacist Internal Medicine 05/05/24 Basilio Hall MD [address] [place] [address] Cardiology 05/17/24 Ron Preciado MD [address] [place] [address] Pulmonary Disease 05/17/24 documented as of this encounter
--- OUTSIDE RECORDS SUMMARY | 2024-12-27 09:42 | XMS_ITS | Encounter Summary ---
Author Organization [employer] Address 75 [facility] 7t [place] [address] Care Team Providers Care Skull Grinder Name Role Phone Sariah Vickers Primary Care Provider Yuri Pierre PharmD Unavailable [phone] Basilio Hall MD Unavailable [phone] Ron Preciado MD Unavailable [phone] Encounter Details Date Type Department Care Team (Late st Contact Info) Description 02/05/2022 Abstract [facility] 230 [place] [address] Sariah Vickers ANP 230 [place] [address] Social History Tobacco Use Types Packs/Day Years [...] 12/27/2024 11:00 AM EST Medication Management [address] [address] Yuri Pierre PharmD [address] [place] [address] 01/07/2025 9:30 AM EST Clinical Support [address] [address] Azeb Hall, RN 505 [place] [address] 01/11/2025 1:00 PM EST Office Visit [address] [address] Sariah Vickers ANP [address] [place] [address] 02/03/2025 11:00 AM EST Medication Management [address] [address] Yuri Pierre, MikeD [address] [place] [address] documented as of this encounter Visit Diagnoses Not on filedocumented in this encounter Care Teams Skull Grinder Relationship Specialty Start Date End Date Sariah Vickers ANP [address] [place] [address] PCP - General Family Medicine 09/23/19 Yuri Pierre, MikeD 230 [place] [address] Pharmacist Internal Medicine 05/05/24 Basilio Hall MD [address] [place] [address] Cardiology 05/17/24 Ron Preciado MD [address] [place] [address] Pulmonary Disease 05/17/24 documented as of this encounter
--- OUTSIDE RECORDS SUMMARY | 2024-12-27 09:42 | XMS_ITS | Encounter Summary ---
Author Organization [employer] Address 75 [facility] 7t [place] [address] Care Team Providers Care Dental Detail Representative Name Role Phone Sariah Vickers Primary Care Provider Yuri Pierre PharmD Unavailable [phone] Basilio Hall MD Unavailable [phone] Ron Preciado MD Unavailable [phone] Reason for Visit * Reason Comments Med Refill Encounter Details Date Type Department Care Team (Late st Contact Info) Description 12/02/2024 Refill [facility] [address] [place] [address] Sariah Vickers ANP 230 [place] [address] Type 2 diabetes mellitus with diabetic neuropathy, [...] 12/27/2024 11:00 AM EST Medication Management [address] [address] Yuri Pierre, PharmD [address] [place] [address] 01/07/2025 9:30 AM EST Clinical Support [address] [address] Azeb aHll, MARTIN 505 [place] [address] 01/11/2025 1:00 PM EST Office Visit [address] [address] Sariah Vickers ANP [address] [place] [address] 02/03/2025 11:00 AM EST Medication Management [address] [address] Yuri Pierre, MikeD 230 [place] [address] documented as of this encounter Goals Goal [...] as of this encounter Care Teams Dental Detail Representative Relationship Specialty Start Date End Date Sariah Vickers ANP 230 [place] [address] PCP - General Family Medicine 09/23/19 Yuri Pierre, PharmD [address] [place] [address] Pharmacist Internal Medicine 05/05/24 Basilio Hall MD [address] [place] [address] Cardiology 05/17/24 Ron Preciado MD [address] [place] [address] Pulmonary Disease 05/17/24 documented as of this encounter
--- OUTSIDE RECORDS SUMMARY | 2024-12-27 09:42 | XMS_ITS | Encounter Summary ---
Author Organization [employer] Address 75 [facility] 7t [place] [address] Care Team Providers Care Lock And Dam Equipment Repairer Name Role Phone Sariah Vickers Primary Care Provider [phone] Yuri Pierre PharmD Unavailable [phone] Basilio Hall MD Unavailable [phone] Ron Preciado MD Unavailable [phone] Reason for Visit * Reason Comments Med Refill Encounter Details Date Type Department Care Team (Late st Contact Info) Description 02/06/2022 Refill [facility] MEDICINE 230 [place] [address] Sariah Vickers ANP 230 [place] [address] Social History Tobacco Use Types Packs/Day Years [...] Description 12/27/2024 11:00 AM EST Medication Management [address] [address] Yuri Pierre, PharmD [address] [place] [address] 01/07/2025 9:30 AM EST Clinical Support [address] [address] Azeb Hall, RN 505 [place] [address] 01/11/2025 1:00 PM EST Office Visit [address] [address] Sariah Vickers ANP [address] [place] [address] 02/03/2025 11:00 AM EST Medication Management [address] [address] Yuri Pierre PharmD [address] [place] [address] documented as of this encounter Visit Diagnoses Not on filedocumented in this encounter Care Teams Lock And Dam Equipment Repairer Relationship Specialty Start Date End Date Sariah Vickers ANP [address] [place] [address] PCP - General Family Medicine 09/23/19 Yuri Pierre, PharmD [address] [place] [address] Pharmacist Internal Medicine 05/05/24 Basilio Hall MD 596 [place] [address] Cardiology 05/17/24 Ron Preciado MD [address] [place] [address] Pulmonary Disease 05/17/24 documented as of this encounter
--- OUTSIDE RECORDS SUMMARY | 2024-12-27 09:42 | XMS_ITS | Encounter Summary ---
Author Organization [employer] Address 75 [facility] 7t [place] [address] Care Team Providers Care Cane Pusher Name Role Phone Sariah Vickers KAYLEE Primary Care Provider [phone] Yuri Pierre PharmD Unavailable [phone] Basilio Hall MD Unavailable [phone] Ron Preciado MD Unavailable [phone] Encounter Details Date Type Department Care Team (Latest Contact Info) Description 04/14/2020 Abstract [facility] CONVERSIONS Dental, Provider, DDS Social History Tobacco [...] [facility] MEDICINE [address] [place] [address] Yuri Pierre, PharmD 230 [place] [address] 01/07/2025 9:30 AM EST Clinical Support [facility] MEDICINE [address] [place] [address] Azeb Hall RN 505 [place] [address] 01/11/2025 1:00 PM EST Office Visit [facility] MEDICINE [address] [place] [address] Sariah Vickers ANP [address] [place] [address] 02/03/2025 11:00 AM EST Medication Management [address] [address] Yuri Peirre, Dileep [address] [place] [address] documented as of this encounter Visit Diagnoses Not on filedocumented in this encounter Care Teams Cane Pusher Relationship Specialty Start Date End Date Sariah Vickers ANP [address] [place] [address] [phone] PCP - General Family Medicine 09/23/19 Yuri Pierre, PharmD [address] [place] [address] [phone] Pharmacist Internal Medicine 05/05/24 Basilio Hall MD [address] [place], [place] 7445040 Cardiology 05/17/24 Ron Preciado MD [address] [place] [address] Pulmonary Disease 05/17/24 documented as of this encounter
--- OUTSIDE RECORDS SUMMARY | 2024-12-27 09:42 | XMS_ITS | Encounter Summary ---
Author Organization [employer] Address 75 [facility] 7t [place] [address] Care Team Providers Care Swatch Cutter Name Role Phone Sariah Vcikers Primary Care Provider [phone] Yuri Pierre PharmD Unavailable [phone] Basilio Hall MD Unavailable [phone] Ron Preciado MD Unavailable [phone] Encounter Details Date Type Department Care Team (Late st Contact Info) Description 11/23/2024 Orders Only [facility] MEDICINE 230 [place] [address] Sariah Vickers ANP 230 [place] [address] Social History Tobacco Use Types Packs/Day Years [...] Description 12/27/2024 11:00 AM EST Medication Management [address] [address] Yuri Pierre, Dileep [address] [place] [address] 01/07/2025 9:30 AM EST Clinical Support [address] [address] Azeb Hall, MARTIN 505 [place] [address] 01/11/2025 1:00 PM EST Office Visit [address] [address] Sariah Vickers ANP [address] [place] [address] 02/03/2025 11:00 AM EST Medication Management [address] [address] Yuri Pierre, PharmD [address] [place] [address] documented as of this encounter Goals Goal [...] documented as of this encounter Care Teams Swatch Cutter Relationship Specialty Start Date End Date Sariah Vickers ANP 230 [place] [address] PCP - General Family Medicine 09/23/19 Yuri Pierre, MikeD 230 [place] [address] Pharmacist Internal Medicine 05/05/24 Basilio Hall MD 596 [place] [address] Cardiology 05/17/24 Ron Preciado MD [address] [place] [address] Pulmonary Disease 05/17/24 documented as of this encounter
--- OUTSIDE RECORDS SUMMARY | 2024-12-27 09:42 | XMS_ITS | Encounter Summary ---
Author Organization [employer] Address 75 [facility] 7t [place] [address] Care Team Providers Care Milled Rice Broker Name Role Phone Sariah Vickers KAYLEE Primary Care Provider [phone] Yuri Pierre PharmD Unavailable [phone] Basilio Hall MD Unavailable [phone] Ron Preciado MD Unavailable [phone] Encounter Details Date Type Department Care [...] 12/27/2024 11:00 AM EST Medication Management [address] [address] Yuri Pierre, PharmD [address] [place] [address] 01/07/2025 9:30 AM EST Clinical Support [address] [address] Azeb Hall, MARTIN 505 [place] [address] 01/11/2025 1:00 PM EST Office Visit [facility] [address] [place] [address] Sariah Vickers ANP [address] [place] [address] 02/03/2025 11:00 AM EST Medication Management [address] [address] Yuri Pierre, Dileep [address] [place] [address] documented as of this encounter Visit Diagnoses Not on filedocumented in this encounter Care Teams Milled Rice Broker Relationship Specialty Start Date End Date Sariah Vickers ANP [address] [place] [address] [phone] PCP - General Family Medicine 09/23/19 Yuri Pierre, PharmD [address] [place] [address] [phone] Pharmacist Internal Medicine 05/05/24 Basilio Hall MD 5[address] [place] [address] Cardiology 05/17/24 Ron Preciado MD [address] [place] [address] Pulmonary Disease 05/17/24 documented as of this encounter
--- OUTSIDE RECORDS SUMMARY | 2024-12-27 09:42 | XMS_ITS | Encounter Summary ---
Author Organization [employer] Address [address] [place] [address] 7t [place] [address] Care Team Providers Care Regional Facilities Manager Name Role Phone Sariah Vickers Primary Care Provider Yuri Pierre PharmD Unavailable [phone] Basilio Hall MD Unavailable [phone] Ron Preciado MD Unavailable [phone] Reason for Visit * Reason Onset Date Comments Nurse Triage 11/01/2022 Encounter Details Date Type Department Care Team (Late st Contact Info) Description 11/01/2022 Telephone [facility] MED[facility] 230 [place] [address] Sariah Vickers ANP 230 [place] [address] Nurse Triage Social History Tobacco Use Types [...] 11/01/2022 3:51 PM EDT Triage call with [employer] [place] [id number] Pt reports blood sugars have been high [...] Description 12/27/2024 11:00 AM EST Medication Management [facility] [address] [place] [address] Yuri Pierre, PharmD 230 [place] [address] 01/07/2025 9:30 AM EST Clinical Support [facility] [address] [place] [address] Azeb Hall RN [address] [place] [address] 01/11/2025 1:00 PM EST Office Visit [address] [address] Sariah Vickers ANP [address] [place] [address] 02/03/2025 11:00 AM EST Medication Management [address] [address] Yuri Pierre PharmD [address] [place] [address] documented as of this encounter Goals Goal [...] filedocumented in this encounter Care Teams Regional Facilities Manager Relationship Specialty Start Date End Date Sariah Vickers ANP [address] [place] [address] PCP - General Family Medicine 09/23/19 Yuri Pierre, PharmD [address] [place] [address] Pharmacist Internal Medicine 05/05/24 Basilio Hall MD [address] [place] [address] Cardiology 05/17/24 Ron Preciado MD [address] [place] [address] Pulmonary Disease 05/17/24 documented as of this encounter
--- OUTSIDE RECORDS SUMMARY | 2024-12-27 09:42 | XMS_ITS | Encounter Summary ---
Author Organization [employer] Address 75 [facility] 7t [place] [address] Care Team Providers Care Machine Setter And Repairer Name Role Phone Sariah Vickers KAYLEE Primary Care Provider [phone] Yuri Pierre PharmD Unavailable [phone] Basilio Hall MD Unavailable [phone] Ron Preciado MD Unavailable [phone] Encounter Details Date Type Department Care Team (Latest Contact Info) Description 06/20/2021 Abstract [facility] CONVERSIONS Dental, Provider, [...] Description 12/27/2024 11:00 AM EST Medication Management [facility] MEDICINE [address] [place] [address] Yuri Pierre, PharmD 230 [place] [address] 01/07/2025 9:30 AM EST Clinical Support [facility] MEDICINE [address] [place] [address] Azeb Hall RN 505 [place] [address] 01/11/2025 1:00 PM EST Office Visit [facility] MED[facility] [address] [place] [address] Sariah Vickers ANP [address] [place] [address] 02/03/2025 11:00 AM EST Medication Management [address] [address] Yuri Pierre, Dileep [address] [place] [address] documented as of this encounter Visit Diagnoses Not on filedocumented in this encounter Care Teams Machine Setter And Repairer Relationship Specialty Start Date End Date Sariah Vickers ANP [address] [place] [address] [phone] PCP - General Family Medicine 09/23/19 Yuri Pierre, PharmD [address] [place] [address] [phone] Pharmacist Internal Medicine 05/05/24 Basilio Hall MD 5[address] [place], [place] 9539040 Cardiology 05/17/24 Ron Preciado MD [address] [place] [address] Pulmonary Disease 05/17/24 documented as of this encounter
--- OUTSIDE RECORDS SUMMARY | 2024-12-27 09:43 | XMS_ITS | Encounter Summary ---
Author Organization [employer] Address 75 [facility] 7t [place] [address] Care Team Providers Care Bartenders Name Role Phone Sariah Vickers Primary Care Provider [phone] Yuri Pierre PharmD Unavailable [phone] Basilio Hall MD Unavailable [phone] Ron Preciado MD Unavailable [phone] Reason for Visit * Reason Onset Date Comments Med Refill 02/04/2024 Encounter Details Date Type Department Care Team (Late st Contact Info) Description 02/04/2024 Telephone [facility] MEDICINE 230 [place] [address] Sariah Vickers ANP 230 [place], [place] [phone] Med Refill Social History Tobacco Use Types [...] sent to: [facility] - [place], [place] - [address] [place] [address] documented in this encounter Plan of Treatment Upcoming Encounters Date Type Department Care Team ([facility] st Contact Info) Description 12/27/2024 11:00 AM EST Medication Management [address] [address] Yuri Pierre, PharmD [address] [place] [address] 01/07/2025 9:30 AM EST Clinical Support [address] [address] Azeb Hall RN 505 [place] [address] 01/11/2025 1:00 PM EST Office Visit [address] [phone] Sariah Vickers ANP 230 [place] [address] 02/03/2025 11:00 AM EST Medication Management [facility] MEDICINE 230 [place] [address] Yuri Pierre, PharmBear 230 [place] [address] documented as of this encounter Goals Goal [...] documented as of this encounter Care Teams Bartenders Relationship Specialty Start Date End Date Sariah Vickers ANP 230 [place] [address] PCP - General Family Medicine 09/23/19 Yuri Pierre, PharmD 230 [place] [address] Pharmacist Internal Medicine 05/05/24 Basilio Hall MD 596 [place] [address] Cardiology 05/17/24 Ron Preciado MD [address] [place] [address] Pulmonary Disease 05/17/24 documented as of this encounter
--- OUTSIDE RECORDS SUMMARY | 2024-12-27 09:43 | XMS_ITS | Encounter Summary ---
Author Organization [employer] Address 75 [facility] 7t [place] [address] Care Team Providers Care Lumber Carrier Operator Name Role Phone Sariah Vickers Primary Care Provider [phone] Yuri Pierre PharmD Unavailable [phone] Basilio Hall MD Unavailable [phone] Ron Preciado MD Unavailable [phone] Reason for Visit * Reason Comments Med Refill Encounter Details Date Type Department Care Team (Late st Contact Info) Description 03/26/2022 Refill [facility] MEDICINE 230 [place] [address] Sariah Vickers ANP 230 [place] [address] Social History Tobacco Use Types Packs/Day Years [...] 12/27/2024 11:00 AM EST Medication Management [address] [address] Yuri Pierre, PharmD [address] [place] [address] 01/07/2025 9:30 AM EST Clinical Support [address] [address] Azeb Hall, RN 505 [place] [address] 01/11/2025 1:00 PM EST Office Visit [address] [address] Sariah Vickers ANP [address] [place] [address] 02/03/2025 11:00 AM EST Medication Management [address] [address] Yuri Pierre PharmD [address] [place] [address] documented as of this encounter Visit Diagnoses Not on filedocumented in this encounter Care Teams Lumber Carrier Operator Relationship Specialty Start Date End Date Sariah Vickers ANP [address] [place] [address] PCP - General Family Medicine 09/23/19 Yuri Pierre, PharmD [address] [place] [address] Pharmacist Internal Medicine 05/05/24 Basilio Hall MD 596 [place] [address] Cardiology 05/17/24 Ron Preciado MD [address] [place] [address] Pulmonary Disease 05/17/24 documented as of this encounter
--- OUTSIDE RECORDS SUMMARY | 2024-12-27 09:43 | XMS_ITS | Encounter Summary ---
Author Organization [employer] Address 75 [facility] 7t [place] [address] Care Team Providers Care Public Aid Eligibility Assistant Name Role Phone Sariah Vickers Primary Care Provider Yuri Pierre PharmD Unavailable [phone] Basilio Hall MD Unavailable [phone] Ron Preciado MD Unavailable [phone] Reason for Visit * Reason Comments Med Refill Encounter Details Date Type Department Care Team (Late st Contact Info) Description 10/03/2023 Refill [facility] 230 [place] [address] Sariah Vickers ANP 230 [place], [place] [phone] Chronic SI joint pain Social History Tobacco [...] 12/27/2024 11:00 AM EST Medication Management [address] [address] Yuri Pierre, PharmD [address] [place] [address] 01/07/2025 9:30 AM EST Clinical Support [address] [address] Azeb Hall, MARTIN 505 [place] [address] 01/11/2025 1:00 PM EST Office Visit [address] [address] Sariah Vickers, ANP [address] [place] [address] 02/03/2025 11:00 AM EST Medication Management [address] [address] Yuri Pierre, PharmD [address] [place] [address] documented as of this encounter Goals Goal [...] as of this encounter Care Teams Public Aid Eligibility Assistant Relationship Specialty Start Date End Date Sariah Vickers ANP 230 [place] [address] PCP - General Family Medicine 09/23/19 Yuri Pierre, MikeD 230 [place] [address] Pharmacist Internal Medicine 05/05/24 Basilio Hall MD [address] [place] [address] Cardiology 05/17/24 Ron Preciado MD [address] [place] [address] Pulmonary Disease 05/17/24 documented as of this encounter
--- OUTSIDE RECORDS SUMMARY | 2024-12-27 09:43 | XMS_ITS | Encounter Summary ---
Author Organization [employer] Address 75 [facility] 7t [place] [address] Care Team Providers Care Automation And Control Engineer Name Role Phone Sariah Vickers Primary Care Provider [phone] Yuri Pierre PharmD Unavailable [phone] Basilio Hall MD Unavailable [phone] Ron Preciado MD Unavailable [phone] Reason for Visit * Reason Comments Med Refill Encounter Details Date Type Department Care Team (Late st Contact Info) Description 10/03/2023 Refill [facility]ALK[facility] 230 [place] [address] Sariah Vickers ANP 230 [place], [place] [phone] Chronic SI joint pain Social History Tobacco [...] Description 12/27/2024 11:00 AM EST Medication Management [address] [address] Yuri Pierre, PharmD [address] [place] [address] 01/07/2025 9:30 AM EST Clinical Support [address] [address] Azeb Hall, MARTIN 505 [place] [address] 01/11/2025 1:00 PM EST Office Visit [address] [address] Sariah Vickers, ANP [address] [place] [address] 02/03/2025 11:00 AM EST Medication Management [address] [address] Yuri Pierre, PharmD [address] [place] [address] documented as of this encounter Goals Goal [...] documented as of this encounter Care Teams Automation And Control Engineer Relationship Specialty Start Date End Date Sariah Vickers ANP 230 [place] [address] PCP - General Family Medicine 09/23/19 Yuri Pierre, MikeD 230 [place] [address] Pharmacist Internal Medicine 05/05/24 Basilio Hall MD [address] [place] [address] Cardiology 05/17/24 Ron Preciado MD [address] [place] [address] Pulmonary Disease 05/17/24 documented as of this encounter
--- OUTSIDE RECORDS SUMMARY | 2024-12-27 09:43 | XMS_ITS | Encounter Summary ---
Author Organization [employer] Address 75 [facility] 7t [place] [address] Care Team Providers Care Dragsaw Operator Name Role Phone Sariah Vickers Primary Care Provider [phone] Yuri Pierre PharmD Unavailable [phone] Basilio Hall MD Unavailable [phone] Ron Preciado MD Unavailable [phone] Reason for Visit * Reason Comments Med Refill Encounter Details Date Type Department Care Team (Late st Contact Info) Description 12/17/2023 Refill [facility] MEDICINE 230 [place] [address] Sariah Vickers ANP 230 [place] [address] Chronic SI joint pain Social History Tobacco [...] Description 12/27/2024 11:00 AM EST Medication Management [address] [address] Yuri Pierre, PharmD [address] [place] [address] 01/07/2025 9:30 AM EST Clinical Support [address] [address] Azeb Hall, MARTIN 505 [place] [address] 01/11/2025 1:00 PM EST Office Visit [address] [address] Sariah Vickers, KAYLEE [address] [place] [address] 02/03/2025 11:00 AM EST Medication Management [address] [address] Yuri Pierre, PharmD [address] [place] [address] documented as of this encounter Goals Goal [...] documented as of this encounter Care Teams Dragsaw Operator Relationship Specialty Start Date End Date Sariah Vickers ANP 230 [place] [address] PCP - General Family Medicine 09/23/19 Yuri Pierre PharmD [address] [place] [address] Pharmacist Internal Medicine 05/05/24 Basilio Hall MD [address] [place] [address] Cardiology 05/17/24 Ron Preciado MD [address] [place] [address] Pulmonary Disease 05/17/24 documented as of this encounter
--- OUTSIDE RECORDS SUMMARY | 2024-12-27 09:43 | XMS_ITS | Encounter Summary ---
Author Organization [employer] Address 75 [facility] 7t [place] [address] Care Team Providers Care Leather Splitter Name Role Phone Sariah Vickers Primary Care Provider [phone] Yuri Pierre PharmD Unavailable [phone] Basilio Hall MD Unavailable [phone] Ron Preciado MD Unavailable [phone] Reason for Visit * Reason Comments Med Refill Encounter Details Date Type Department Care Team (Late st Contact Info) Description 01/06/2024 Refill [facility] MED & PEDS [address] [place] [address] Sariah Vickers ANP 230 [place] [address] Cervicalgia Social History Tobacco Use Types Packs/Day [...] 12/27/2024 11:00 AM EST Medication Management [address] [address] Yuri Pierre, PharmD [address] [place] [address] 01/07/2025 9:30 AM EST Clinical Support [address] [address] Azeb Hall, MARTIN 505 [place] [address] 01/11/2025 1:00 PM EST Office Visit [address] [address] Sariah Vickers, KAYLEE [address] [place] [address] 02/03/2025 11:00 AM EST Medication Management [address] [address] Yuri Pierre, PharmD [address] [place] [address] documented as of this encounter Goals Goal [...] as of this encounter Care Teams Leather Splitter Relationship Specialty Start Date End Date Sariah Vickers ANP 230 [place] [address] PCP - General Family Medicine 09/23/19 Yuri Pierre PharmD 230 [place] [address] Pharmacist Internal Medicine 05/05/24 Basilio Hall MD [address] [place] [address] Cardiology 05/17/24 Ron Preicado MD [address] [place] [address] Pulmonary Disease 05/17/24 documented as of this encounter
--- OUTSIDE RECORDS SUMMARY | 2024-12-27 09:43 | XMS_ITS | Encounter Summary ---
Author Organization [employer] Address 75 [facility] 7t [place] [address] Care Team Providers Care Brinell Tester Name Role Phone Sariah Vickers Primary Care Provider [phone] Yuri Pierre PharmD Unavailable [phone] Basilio Hall MD Unavailable [phone] Ron Preciado MD Unavailable [phone] Reason for Visit * Reason Comments Med Refill Patient [facility] hasn't finished her Medbox due to missing refill for medication Gabapetin . Encounter Details Date Type Department Care Team (Late st Contact Info) Description 10/03/2023 Refill [facility] 230 [place], [place] [phone] Sariah Vickers ANP 230 [place], [place] [phone] Chronic SI joint pain Social History Tobacco [...] the past 12 months, has t he [employer] gas, oil or water company threatened to [...] Description 12/27/2024 11:00 AM EST Medication Management [address] [address] Yuri Pierre, PharmD [address] [place] [address] 01/07/2025 9:30 AM EST Clinical Support [address] [address] Azeb Hall, MARTIN 505 [place] [address] 01/11/2025 1:00 PM EST Office Visit [address] [address] Sariah Vickers ANP 230 [place] [address] 02/03/2025 11:00 AM EST Medication Management [facility] MEDICINE 230 [place] [address] Yuri Pierre, MikeD 230 [place] [address] documented as of this encounter Goals Goal [...] documented as of this encounter Care Teams Brinell Tester Relationship Specialty Start Date End Date Sariah Vickers ANP [address] [place] [address] PCP - General Family Medicine 09/23/19 Yuri Pierre, PharmD [address] [place] [address] Pharmacist Internal Medicine 05/05/24 Basilio Hall MD 596 [place] [address] Cardiology 05/17/24 Ron Preciado MD [address] [place] [address] Pulmonary Disease 05/17/24 documented as of this encounter
--- OUTSIDE RECORDS SUMMARY | 2024-12-27 09:43 | XMS_ITS | Encounter Summary ---
Author Organization [employer] Address 75 [facility] 7t [place] [address] Care Team Providers Care Plating 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 Name Role Phone Sariah Vickers Primary Care Provider Yuri Pierre PharmD Unavailable [phone] Basilio Hall MD Unavailable [phone] Ron Preciado MD Unavailable [phone] Reason for Visit * Reason Comments Med Refill Encounter Details Date Type Department Care Team (Late st Contact Info) Description 01/04/2024 Refill [facility] MED & PEDS [address] [place] [address] Sariah Vickers ANP 230 [place] [address] Cervicalgia Social History Tobacco Use Types Packs/Day [...] 12/27/2024 11:00 AM EST Medication Management [address] [address] Yuri Pierre, PharmD [address] [place] [address] 01/07/2025 9:30 AM EST Clinical Support [address] [address] Azeb Hall, MARTIN 505 [place] [address] 01/11/2025 1:00 PM EST Office Visit [address] [address] Sariah Vickers, KAYLEE [address] [place] [address] 02/03/2025 11:00 AM EST Medication Management [address] [address] Yuri Pierre, PharmD [address] [place] [address] documented as of this encounter Goals Goal [...] documented as of this encounter Care Teams Plating 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 Relationship Specialty Start Date End Date Sariah Vickers ANP 230 [place] [address] PCP - General Family Medicine 09/23/19 Yuri Pierre PharmD 230 [place] [address] Pharmacist Internal Medicine 05/05/24 Basilio Hall MD [address] [place] [address] Cardiology 05/17/24 Ron Preciado MD [address] [place] [address] Pulmonary Disease 05/17/24 documented as of this encounter
--- OUTSIDE RECORDS SUMMARY | 2024-12-27 09:43 | XMS_ITS | Encounter Summary ---
Author Organization [employer] Address 75 [facility] 7t [place] [address] Care Team Providers Care Final Expense Agent Name Role Phone Sariah Vickers Primary Care Provider [phone] Yuri Pierre PharmD Unavailable [phone] Basilio Hall MD Unavailable [phone] Ron Preciado MD Unavailable [phone] Reason for Visit * Reason Comments Med Refill Encounter Details Date Type Department Care Team (Late st Contact Info) Description 11/24/2023 Refill [facility] MEDICINE 230 [place] [address] Sariah Vickers ANP 230 [place] [address] Vertigo Social History Tobacco Use Types Packs/Day [...] 12/27/2024 11:00 AM EST Medication Management [address] [address] Yuri Pierre, PharmD [address] [place] [address] 01/07/2025 9:30 AM EST Clinical Support [address] [address] Azeb Hall, MARTIN 505 [place] [address] 01/11/2025 1:00 PM EST Office Visit [address] [address] Sariah Vickers, KAYLEE [address] [place] [address] 02/03/2025 11:00 AM EST Medication Management [address] [address] Yuri Pierre, PharmD [address] [place] [address] documented as of this encounter Goals Goal [...] documented as of this encounter Care Teams Final Expense Agent Relationship Specialty Start Date End Date Sariah Vickers ANP [address] [place] [address] PCP - General Family Medicine 09/23/19 Yuri Pierre, MikeD [address] [place] [address] Pharmacist Internal Medicine 05/05/24 Basilio Hall MD [address] [place] [address] Cardiology 05/17/24 Ron Preciado MD [address] [place] [address] Pulmonary Disease 05/17/24 documented as of this encounter
--- OUTSIDE RECORDS SUMMARY | 2024-12-27 09:43 | XMS_ITS | Encounter Summary ---
Author Organization [employer] Address 75 [facility] 7t [place] [address] Care Team Providers Care Leasing Representative Name Role Phone Sariah Vickers Primary Care Provider [phone] Yuri Pierre PharmD Unavailable [phone] Basilio Hall MD Unavailable [phone] Ron Preciado MD Unavailable [phone] Reason for Visit * Reason Onset Date Comments Durable Medical Equipment 03/15/2022 Encounter Details Date Type Department Care Team (Late st Contact Info) Description 03/15/2022 Telephone [facility] MEDICINE 230 [place] [address] Sariah Vickers ANP 230 [place] [address] Durable Medical Equipment Social History Tobacco Use [...] Description 12/27/2024 11:00 AM EST Medication Management [address] [address] Yuri Pierre, Dileep [address] [place] [address] 01/07/2025 9:30 AM EST Clinical Support [address] [address] Azeb Hall, MARTIN 505 [place] [address] 01/11/2025 1:00 PM EST Office Visit [address] [address] Sariah Vickers ANP [address] [place] [address] 02/03/2025 11:00 AM EST Medication Management [address] [address] Yuri Pierre, PharmD [address] [place] [address] documented as of this encounter Visit Diagnoses Not on filedocumented in this encounter Care Teams Leasing Representative Relationship Specialty Start Date End Date Sariah Vickers ANP [address] [place] [address] PCP - General Family Medicine 09/23/19 Yuri Pierre, MikeD 230 [place] [address] Pharmacist Internal Medicine 05/05/24 Basilio Hall MD 596 [place] [address] Cardiology 05/17/24 Ron Preciado MD [address] [place] [address] Pulmonary Disease 05/17/24 documented as of this encounter
--- OUTSIDE RECORDS SUMMARY | 2024-12-27 09:43 | XMS_ITS | Encounter Summary ---
Author Organization [employer] Address 75 [facility] 7t [place] [address] Care Team Providers Care Piano Bench Assembler Name Role Phone Sariah Vickers Primary Care Provider [phone] Yuri Pierre PharmD Unavailable [phone] Basilio Hall MD Unavailable [phone] Ron Preciado MD Unavailable [phone] Reason for Visit * Reason Onset Date Comments Med Refill 09/18/2023 Encounter Details Date Type Department Care Team (Late st Contact Info) Description 09/18/2023 Telephone [facility] MEDICINE 230 [place], [place] [phone] Sariah Vickers ANP 230 [place], [place] [phone] Med Refill Social History Tobacco Use Types [...] refill : Tramadol To be sent to: [facility] - [place], [place] - [address] [place] [address] documented in this encounter Plan of Treatment Upcoming Encounters Date Type Department Care Team ([facility] st Contact Info) Description 12/27/2024 11:00 AM EST Medication Management [address] [address] Yuri Pierre, PharmD [address] [place] [address] 01/07/2025 9:30 AM EST Clinical Support [address] [address] Azeb Hall RN 505 [place] [address] 01/11/2025 1:00 PM EST Office Visit [address] [address] Sariah Vickers ANP 230 [place] [address] 02/03/2025 11:00 AM EST Medication Management [facility] 230 [place] [address] Yuri Pierre, PharmD 230 [place] [address] documented as of this encounter Goals Goal [...] documented as of this encounter Care Teams Piano Bench Assembler Relationship Specialty Start Date End Date Sariah Vickers ANP 230 [place] [address] PCP - General Family Medicine 09/23/19 Yuri Pierre, PharmD 230 [place] [address] Pharmacist Internal Medicine 05/05/24 Basilio Hall MD 596 [place] [address] Cardiology 05/17/24 Ron Preciado MD [address] [place] [address] Pulmonary Disease 05/17/24 documented as of this encounter
--- OUTSIDE RECORDS SUMMARY | 2024-12-27 09:43 | XMS_ITS | Encounter Summary ---
Author Organization [employer] Address 75 [facility] 7t [place] [address] Care Team Providers Care Bush And Vine Fruit Crop Farmer Name Role Phone Sariah Vickers Primary Care Provider [phone] Yuri Pierre PharmD Unavailable [phone] Basilio Hall MD Unavailable [phone] Ron Preciado MD Unavailable [phone] Reason for Visit * Reason Comments Med Refill Encounter Details Date Type Department Care Team (Late st Contact Info) Description 11/26/[address] [facility] MEDICINE 230 [place] [address] Sariah Vickers ANP 230 [place] [address] Vertigo Social History Tobacco Use Types Packs/Day [...] 12/27/2024 11:00 AM EST Medication Management [address] [address] Yuri Pierre, PharmD [address] [place] [address] 01/07/2025 9:30 AM EST Clinical Support [address] [address] Azeb Hall, MARTIN 505 [place] [address] 01/11/2025 1:00 PM EST Office Visit [address] [address] Sariah Vickers, KAYLEE [address] [place] [address] 02/03/2025 11:00 AM EST Medication Management [address] [address] Yuri Pierre, PharmD [address] [place] [address] documented as of this encounter Goals Goal [...] documented as of this encounter Care Teams [employer] Vine Fruit Crop Farmer Relationship Specialty Start Date End Date Sariah Vickers ANP [address] [place] [address] PCP - General Family Medicine 09/23/19 Yuri Pierre, MikeD [address] [place] [address] Pharmacist Internal Medicine 05/05/24 Basilio Hall MD [address] [place] [address] Cardiology 05/17/24 Ron Preciado MD [address] [place] [address] Pulmonary Disease 05/17/24 documented as of this encounter
--- OUTSIDE RECORDS SUMMARY | 2024-12-27 09:43 | XMS_ITS | Encounter Summary ---
Author Organization [employer] Address 75 [facility] 7t [place] [address] Care Team Providers Care Hyperbaric Technologist Name Role Phone Sariah Vickers Primary Care Provider [phone] Yuri Pierre PharmD Unavailable [phone] Basilio Hall MD Unavailable [phone] Ron Preciado MD Unavailable [phone] Reason for Visit * Reason Comments Med Refill Encounter Details Date Type Department Care Team (Late st Contact Info) Description 10/17/2023 Refill [facility] 230 [place] [address] Sariah Vickers ANP 230 [place] [address] Neck pain Social History Tobacco Use Types [...] 12/27/2024 11:00 AM EST Medication Management [address] [address] Yuri Pierre, PharmD [address] [place] [address] 01/07/2025 9:30 AM EST Clinical Support [address] [address] Azeb Hall, MARTIN 505 [place] [address] 01/11/2025 1:00 PM EST Office Visit [address] [address] Sariah Vickers, KAYLEE [address] [place] [address] 02/03/2025 11:00 AM EST Medication Management [address] [address] Yuri Pierre, PharmD [address] [place] [address] documented as of this encounter Goals Goal [...] documented as of this encounter Care Teams Hyperbaric Technologist Relationship Specialty Start Date End Date Sariah Vickers ANP 230 [place] [address] PCP - General Family Medicine 09/23/19 Yuri Pierre PharmD 230 [place] [address] Pharmacist Internal Medicine 05/05/24 Basilio Hall MD [address] [place] [address] Cardiology 05/17/24 Ron Preciado MD [address] [place] [address] Pulmonary Disease 05/17/24 documented as of this encounter
--- OUTSIDE RECORDS SUMMARY | 2024-12-27 09:43 | XMS_ITS | Encounter Summary ---
Author Organization [employer] Address 75 [facility] 7t [place] [address] Care Team Providers Care Quitline Counselor Name Role Phone Sariah Vickers Primary Care Provider [phone] Yuri Pierre PharmD Unavailable [phone] Basilio Hall MD Unavailable [phone] Ron Preciado MD Unavailable [phone] Reason for Visit * Reason Comments Med Refill Encounter Details Date Type Department Care Team (Late st Contact Info) Description 06/17/2024 Refill [facility] 230 [place] [address] Sariah Vickers ANP 230 [place], [place] [phone] Neck pain Social History Tobacco Use Types [...] Description 12/27/2024 11:00 AM EST Medication Management [address] [address] Yuri Pierre, PharmD [address] [place] [address] 01/07/2025 9:30 AM EST Clinical Support [address] [address] Azeb Hall, MARTIN 505 [place] [address] 01/11/2025 1:00 PM EST Office Visit [address] [address] Sariah Vickers, KAYLEE [address] [place] [address] 02/03/2025 11:00 AM EST Medication Management [address] [address] Yuri Pierre, PharmD [address] [place] [address] documented as of this encounter Goals Goal [...] documented as of this encounter Care Teams Quitline Counselor Relationship Specialty Start Date End Date Sariah Vickers ANP 230 [place] [address] PCP - General Family Medicine 09/23/19 Yuri Pierre, MikeD [address] [place] [address] Pharmacist Internal Medicine 05/05/24 Basilio Hall MD [address] [place] [address] Cardiology 05/17/24 Ron Preciado MD [address] [place] [address] Pulmonary Disease 05/17/24 documented as of this encounter
--- OUTSIDE RECORDS SUMMARY | 2024-12-27 09:43 | XMS_ITS | Encounter Summary ---
Author Organization [employer] Address 75 [facility] 7t [place] [address] Care Team Providers Care Senior Care Specialist Name Role Phone Sariah Vickers Primary Care Provider [phone] Yuri Pierre PharmD Unavailable [phone] Basilio Hall MD Unavailable [phone] Ron Preciado MD Unavailable [phone] Reason for Visit * Reason Onset Date Comments Med Refill 01/09/2024 Encounter Details Date Type Department Care Team (Late st Contact Info) Description 01/09/2024 Telephone [facility] 230 [place] [address] Sariah Vickers ANP 230 [place], [place] [phone] Med Refill Social History Tobacco Use Types [...] Description 12/27/2024 11:00 AM EST Medication Management [address] [address] Yuri Pierre, PharmD [address] [place] [address] 01/07/2025 9:30 AM EST Clinical Support [address] [address] Azeb Hall, RN [address] [place] [address] 01/11/2025 1:00 PM EST Office Visit [address] [address] Sariah Vickers, KAYLEE [address] [place] [address] 02/03/2025 11:00 AM EST Medication Management [address] [address] Yuri Pierre, PharmD [address] [place] [address] documented as of this encounter Goals Goal [...] as of this encounter Care Teams Senior Care Specialist Relationship Specialty Start Date End Date Sariah Vickers ANP 230 [place] [address] PCP - General Family Medicine 09/23/19 Yuri Pierre, MikeD [address] [place] [address] Pharmacist Internal Medicine 05/05/24 Basilio Hall MD [address] [place] [address] Cardiology 05/17/24 Ron Preciado MD [address] [place] [address] Pulmonary Disease 05/17/24 documented as of this encounter
--- OUTSIDE RECORDS SUMMARY | 2024-12-27 09:43 | XMS_ITS | Encounter Summary ---
Author Organization [employer] Address 75 [facility] 7t [place] [address] Care Team Providers Care Roller Engraver Name Role Phone Sariah Vickers Primary Care Provider [phone] Yuri Pierre PharmD Unavailable [phone] Basilio Hall MD Unavailable [phone] Ron Preciado MD Unavailable [phone] Reason for Visit * Reason Comments Med Refill Encounter Details Date Type Department Care Team (Late st Contact Info) Description 10/24/2023 Refill [facility] 230 [place] [address] Sariah Vickers ANP 230 [place] [address] Neck pain Social History Tobacco Use Types [...] Description 12/27/2024 11:00 AM EST Medication Management [address] [address] Yuri Pierre, PharmD [address] [place] [address] 01/07/2025 9:30 AM EST Clinical Support [address] [address] Azeb Hall, MARTIN 505 [place] [address] 01/11/2025 1:00 PM EST Office Visit [address] [address] Sariah Vickers, KAYLEE [address] [place] [address] 02/03/2025 11:00 AM EST Medication Management [address] [address] Yuri Pierre, PharmD [address] [place] [address] documented as of this encounter Goals Goal [...] documented as of this encounter Care Teams Roller Engraver Relationship Specialty Start Date End Date Sariah Vickers ANP 230 [place] [address] PCP - General Family Medicine 09/23/19 Yuri Pierre PharmD 230 [place] [address] Pharmacist Internal Medicine 05/05/24 Basilio Hall MD [address] [place] [address] Cardiology 05/17/24 Ron Preciado MD [address] [place] [address] Pulmonary Disease 05/17/24 documented as of this encounter
--- OUTSIDE RECORDS SUMMARY | 2024-12-27 09:43 | XMS_ITS | Encounter Summary ---
Author Organization [employer] Address 75 [facility] 7t [place] [address] Care Team Providers Care Fusion Analyst Name Role Phone Sariah Vickers Primary Care Provider [phone] Yuri Pierre PharmD Unavailable [phone] Basilio Hall MD Unavailable [phone] Ron Preciado MD Unavailable [phone] Reason for Visit * Reason Comments Med Refill Encounter Details Date Type Department Care Team (Late st Contact Info) Description 11/14/2023 Refill [facility] 230 [place] [address] Sariah Vickers ANP 230 [place] [address] Neck pain Social History Tobacco Use Types [...] 12/27/2024 11:00 AM EST Medication Management [address] [address] Yuri Pierre, PharmD [address] [place] [address] 01/07/2025 9:30 AM EST Clinical Support [address] [address] Azeb Hall, MARTIN 505 [place] [address] 01/11/2025 1:00 PM EST Office Visit [address] [address] Sariah Vickers, KAYLEE [address] [place] [address] 02/03/2025 11:00 AM EST Medication Management [address] [address] Yuri Pierre, PharmD [address] [place] [address] documented as of this encounter Goals Goal [...] documented as of this encounter Care Teams Fusion Analyst Relationship Specialty Start Date End Date Sariah Vickers ANP 230 [place] [address] PCP - General Family Medicine 09/23/19 Yuri Pierre PharmD 230 [place] [address] Pharmacist Internal Medicine 05/05/24 Basilio Hall MD [address] [place] [address] Cardiology 05/17/24 Ron Preciado MD [address] [place] [address] Pulmonary Disease 05/17/24 documented as of this encounter
--- OUTSIDE RECORDS SUMMARY | 2024-12-27 09:43 | XMS_ITS | Encounter Summary ---
Author Organization [employer] Address 75 [facility] 7t [place] [address] Care Team Providers Care Parking Station Attendant Name Role Phone Sariah Vickers Primary Care Provider [phone] Yuri Pierre PharmD Unavailable [phone] Basilio Hall MD Unavailable [phone] Ron Preciado MD Unavailable [phone] Reason for Visit * Reason Comments Med Refill Encounter Details Date Type Department Care Team (Late st Contact Info) Description 01/06/2024 Refill [facility] [address] [place] [address] Sariah Vickers ANP 230 [place] [address] Cervicalgia Social History Tobacco Use Types Packs/Day [...] Description 12/27/2024 11:00 AM EST Medication Management [address] [place] [address] [address] Yuri Pierre, PharmD [address] [place] [address] 01/07/2025 9:30 AM EST Clinical Support [address] [address] Azeb Hall, MARTIN 505 [place] [address] 01/11/2025 1:00 PM EST Office Visit [address] [address] Sariah Vickers, KAYLEE [address] [place] [address] 02/03/2025 11:00 AM EST Medication Management [address] [address] Yuri Pierre, PharmD [address] [place] [address] documented as of this encounter Goals Goal [...] documented as of this encounter Care Teams Parking Station Attendant Relationship Specialty Start Date End Date Sariah Vickers ANP 230 [place] [address] PCP - General Family Medicine 09/23/19 Yuri Pierre PharmD 230 [place] [address] Pharmacist Internal Medicine 05/05/24 Basilio Hall MD [address] [place] [address] Cardiology 05/17/24 Ron Preciado MD [address] [place] [address] Pulmonary Disease 05/17/24 documented as of this encounter
--- OUTSIDE RECORDS SUMMARY | 2024-12-27 09:43 | XMS_ITS | Encounter Summary ---
Author Organization [employer] Address 75 [facility] 7t [place] [address] Care Team Providers Care Photocopy Operator Name Role Phone Sariah Vickers Primary Care Provider [phone] Yuri Pierre PharmD Unavailable [phone] Basilio Hall MD Unavailable [phone] Ron Preciado MD Unavailable [phone] Reason for Visit * Reason Comments Med Refill Encounter Details Date Type Department Care Team (Late st Contact Info) Description 03/03/2022 Refill [facility] 230 [place] [address] Sariah Vickers ANP 230 [place] [address] Social History Tobacco Use Types Packs/Day Years [...] Description 12/27/2024 11:00 AM EST Medication Management [address] [address] Yuri Pierre PharmD [address] [place] [address] 01/07/2025 9:30 AM EST Clinical Support [address] [address] Azeb Hall RN [address] [place] [address] 01/11/2025 1:00 PM EST Office Visit [address] [address] Sariah Vickers ANP [address] [place] [address] 02/03/2025 11:00 AM EST Medication Management [address] [address] Yuri Pierre PharmD [address] [place] [address] documented as of this encounter Visit Diagnoses Not on filedocumented in this encounter Care Teams Photocopy Operator Relationship Specialty Start Date End Date Sariah Vickers ANP [address] [place] [address] PCP - General Family Medicine 09/23/19 Yuri Pierre, Dileep [address] [place] [address] Pharmacist Internal Medicine 05/05/24 Basilio Hall MD 596 [place] [address] Cardiology 05/17/24 Ron Preciado MD [address] [place] [address] Pulmonary Disease 05/17/24 documented as of this encounter
--- OUTSIDE RECORDS SUMMARY | 2024-12-27 09:43 | XMS_ITS | Encounter Summary ---
Author Organization [employer] Address 75 [facility] 7t [place] [address] Care Team Providers Care Director Report Name Role Phone Sariah Vickers Primary Care Provider [phone] Yuri Pierre PharmD Unavailable [phone] Basilio Hall MD Unavailable [phone] Ron Preciado MD Unavailable [phone] Reason for Visit * Reason Comments Med Refill Encounter Details Date Type Department Care Team (Late st Contact Info) Description 12/12/2024 Refill [facility] [address] [place] [address] Sariah Vickers ANP 230 [place] [address] Cervicalgia Social History Tobacco Use Types Packs/Day [...] Description 12/27/2024 11:00 AM EST Medication Management [address] [address] Yuri Pierre, MikeD [address] [place] [address] 01/07/2025 9:30 AM EST Clinical Support [address] [address] Azeb Hall, MARTIN 505 [place] [address] 01/11/2025 1:00 PM EST Office Visit [address] [address] Sariah Vickers ANP [address] [place] [address] 02/03/2025 11:00 AM EST Medication Management [address] [address] Yuri Pierre, PharmD 230 [place] [address] documented as of this encounter Goals Goal [...] as of this encounter Care Teams Director Report Relationship Specialty Start Date End Date Sariah Vickers ANP 230 [place] [address] PCP - General Family Medicine 09/23/19 Yuri Pierre, MikeD 230 [place] [address] Pharmacist Internal Medicine 05/05/24 Basilio Hall MD 596 [place] [address] Cardiology 05/17/24 Ron Preciado MD [address] [place] [address] Pulmonary Disease 05/17/24 documented as of this encounter
--- OUTSIDE RECORDS SUMMARY | 2024-12-27 09:43 | XMS_ITS | Encounter Summary ---
Author Organization [employer] Address 75 [facility] 7t [place] [address] Care Team Providers Care Communications Equipment Installer Name Role Phone Sariah Vickers Primary Care Provider [phone] Yuri Pierre PharmD Unavailable [phone] Basilio Hall MD Unavailable [phone] Ron Preciado MD Unavailable [phone] Reason for Visit * Reason Comments Med Refill Pt wants to know if she can keep taking prednis Encounter Details Date Type Department Care Team (Late st Contact Info) Description 06/26/2024 Refill [facility] [address] [place] [address] Sariah Vickers ANP 230 [place] [address] Cervicalgia Social History Tobacco Use Types Packs/Day [...] 12/27/2024 11:00 AM EST Medication Management [address] [address] Yuri Pierre, PharmD [address] [place] [address] 01/07/2025 9:30 AM EST Clinical Support [address] [address] Azeb Hall, MARTIN [address] [place] [address] 01/11/2025 1:00 PM EST Office Visit [address] [address] Sariah Vickers, KAYLEE [address] [place] [address] 02/03/2025 11:00 AM EST Medication Management [address] [address] Yuri Pierre, PharmD [address] [place] [address] documented as of this encounter Goals [...] as of this encounter Care Teams Communications Equipment Installer Relationship Specialty Start Date End Date Sariah Vickers ANP 230 [place] [address] PCP - General Family Medicine 09/23/19 Yuri Pierre, MikeD 230 [place] [address] Pharmacist Internal Medicine 05/05/24 Basilio Hall MD 596 [place] [address] Cardiology 05/17/24 Ron Preciado MD [address] [place] [address] Pulmonary Disease 05/17/24 documented as of this encounter
--- OUTSIDE RECORDS SUMMARY | 2024-12-27 09:44 | XMS_ITS | Encounter Summary ---
Author Organization [employer] Address 75 [facility] 7t [place] [address] Care Team Providers Care Detention Officer Name Role Phone Sariah Vickers Primary Care Provider [phone] Yuri Pierre PharmD Unavailable [phone] Basilio Hall MD Unavailable [phone] Ron Preciado MD Unavailable [phone] Reason for Visit * Reason Onset Date Comments Referral 08/02/2024 Encounter Details Date Type Department Care Team (Late st Contact Info) Description 08/02/2024 Telephone [facility] 230 [place], [place] [phone] Sariah Vickers ANP 230 [place], [place] [phone] Referral Social History Tobacco Use Types Packs/Day [...] for vertigo therapy. Please contact pt at [phone]. (Finnish Speaker) documented in this encounter Plan of Treatment Upcoming Encounters Date Type Department Care Team ([facility] st Contact Info) Description 12/27/2024 11:00 AM EST Medication Management [facility] [address] [place] [address] Yuri Pierre, PharmD 230 [place] [address] 01/07/2025 9:30 AM EST Clinical Support [address] [phone] Azeb Hall, MARTIN 505 [place] [address] 01/11/2025 1:00 PM EST Office Visit [address] [phone] Sariah Vickers ANP [address] [place] [address] 02/03/2025 11:00 AM EST Medication Management [address] [phone] Yuri Pierre, MikeD [address] [place] [address] documented as of this encounter Goals Goal [...] Date End Date Sariah Vickers ANP [address] [place] [address] PCP - General Family Medicine 09/23/19 Yuri Pierre, PharmD [address] [place] [address] Pharmacist Internal Medicine 05/05/24 Basilio Hall MD 596 [place], [place] Cardiology 05/17/24 Ron Preciado MD [address] [place], [place] [address] Pulmonary Disease 05/17/24 documented as of this encounter
--- OUTSIDE RECORDS SUMMARY | 2024-12-27 09:44 | XMS_ITS | Encounter Summary ---
Author Organization [employer] Address 75 [facility] 7t [place] [address] Care Team Providers Care Product Support Consultant Name Role Phone Sariah Vickers Primary Care Provider [phone] Yuri Pierre PharmD Unavailable [phone] Basilio Hall MD Unavailable [phone] Ron Preciado MD Unavailable [phone] Reason for Visit * Reason Onset Date Comments Appointment Request 09/03/2024 Encounter Details Date Type Department Care Team (Late st Contact Info) Description 09/03/2024 Telephone [facility]INE 230 [place] [address] Sariah Vickers ANP 230 [place] [address] Appointment Request Social History Tobacco Use Types [...] when making the apt. Contact pt at [phone] documented in this encounter Plan of Treatment Upcoming Encounters Date Type Department Care Team ([facility] st Contact Info) Description 12/27/2024 11:00 AM EST Medication Management [address] [address] Yuri Pierre, PharmD [address] [place] [address] 01/07/2025 9:30 AM EST Clinical Support [address] [address] Azeb Hall, MARTIN 505 [place] [address] 01/11/2025 1:00 PM EST Office Visit [facility] [address] [place] [address] Sariah Vickers ANP [address] [place] [address] 02/03/2025 11:00 AM EST Medication Management [address] [address] Yuri Pierre, Dileep [address] [place] [address] documented as of this encounter Goals Goal [...] as of this encounter Care Teams Product Support Consultant Relationship Specialty Start Date End Date Sariah Vickers ANP [address] [place] [address] PCP - General Family Medicine 09/23/19 Yuri Pierre, PharmD [address] [place] [address] Pharmacist Internal Medicine 05/05/24 Basilio Hall MD [address] [place] [address] Cardiology 05/17/24 Ron Preciado MD [address] [place] [address] Pulmonary Disease 05/17/24 documented as of this encounter
--- OUTSIDE RECORDS SUMMARY | 2024-12-27 09:44 | XMS_ITS | Encounter Summary ---
Author Organization [employer] Address 75 [facility] 7t [place] [address] Care Team Providers Care Bedspread Cutter Name Role Phone Sariah Vickers Primary Care Provider [phone] Yuri Pierre PharmD Unavailable [phone] Basilio Hall MD Unavailable [phone] Ron Preciado MD Unavailable [phone] Reason for Visit * Reason Comments Med Refill Encounter Details Date Type Department Care Team (Late st Contact Info) Description 05/23/2024 Refill [facility] [address] [place] [address] Sariah Vickers ANP 230 [place] [address] Cervicalgia Social History Tobacco Use Types Packs/Day [...] 12/27/2024 11:00 AM EST Medication Management [address] [address] Yuri Pierre, PharmD [address] [place] [address] 01/07/2025 9:30 AM EST Clinical Support [address] [address] Azeb Hlal, MARTIN 505 [place] [address] 01/11/2025 1:00 PM EST Office Visit [address] [address] Sariah Vickers, KAYLEE [address] [place] [address] 02/03/2025 11:00 AM EST Medication Management [address] [address] Yuri Pierre, PharmD [address] [place] [address] documented as of this encounter Goals Goal [...] documented as of this encounter Care Teams Bedspread Cutter Relationship Specialty Start Date End Date Sariah Vickers ANP 230 [place] [address] PCP - General Family Medicine 09/23/19 Yuri Pierre PharmD 230 [place] [address] Pharmacist Internal Medicine 05/05/24 Basilio Hall MD [address] [place] [address] Cardiology 05/17/24 Ron Preciado MD [address] [place] [address] Pulmonary Disease 05/17/24 documented as of this encounter
--- OUTSIDE RECORDS SUMMARY | 2024-12-27 09:44 | XMS_ITS | Encounter Summary ---
Author Organization [employer] Address 75 [facility] 7t [place] [address] Care Team Providers Care Health Promoter Name Role Phone Sariah Vickers Primary Care Provider [phone] Yuri Pierre PharmD Unavailable [phone] Basilio Hall MD Unavailable [phone] Ron Preciado MD Unavailable [phone] Reason for Visit * Reason Comments Med Refill Encounter Details Date Type Department Care Team (Late st Contact Info) Description 07/17/2022 Refill [facility] 230 [place] [address] Sariah Vickers ANP 230 [place] [address] Neck pain Social History Tobacco Use Types [...] Description 12/27/2024 11:00 AM EST Medication Management [address] [address] Yuri Pierre, PharmD [address] [place] [address] 01/07/2025 9:30 AM EST Clinical Support [address] [address] Azeb Hall RN 505 [place] [address] 01/11/2025 1:00 PM EST Office Visit [address] [address] Sariah Vickers ANP [address] [place] [address] 02/03/2025 11:00 AM EST Medication Management [address] [address] Yuri Pierre, PharmBear [address] [place] [address] documented as of this encounter Visit Diagnoses Diagnosis Neck pain Cervicalgia documented in this encounter Care Teams Health Promoter Relationship Specialty Start Date End Date Sariah Vickers ANP [address] [place] [address] PCP - General Family Medicine 09/23/19 Yrui Pierre, PharmD [address] [place] [address] Pharmacist Internal Medicine 05/05/24 Basilio Hall MD 596 [place] [address] Cardiology 05/17/24 Ron Preciado MD [address] [place] [address] [id number] Pulmonary Disease 05/17/24 documented as of this encounter
--- OUTSIDE RECORDS SUMMARY | 2024-12-27 09:44 | XMS_ITS | Encounter Summary ---
Author Organization [employer] Address 75 [facility] 7t [place] [address] Care Team Providers Care Oracle Obiee Developer Name Role Phone Sariah Vickers Primary Care Provider [phone] Yuri Pierre PharmD Unavailable [phone] Basilio Hall MD Unavailable [phone] Ron Preciado MD Unavailable [phone] Reason for Visit * Reason Comments Med Refill Encounter Details Date Type Department Care Team (Late st Contact Info) Description 12/17/2024 Refill [facility] MED[facility]INE 230 [place] [address] Sariah Vickers ANP 230 [place] [address] Chronic SI joint pain Social History Tobacco [...] 12/27/2024 11:00 AM EST Medication Management [address] [address] Yuri Pierre, MikeD [address] [place] [address] 01/07/2025 9:30 AM EST Clinical Support [address] [address] Azeb Hall, MARTIN 505 [place] [address] 01/11/2025 1:00 PM EST Office Visit [address] [address] Sariah Vickers, KAYLEE [address] [place] [address] 02/03/2025 11:00 AM EST Medication Management [address] [address] Yuri Pierre, PharmD 230 [place] [address] documented as of this encounter Goals Goal [...] as of this encounter Care Teams Oracle Obiee Developer Relationship Specialty Start Date End Date Sariah Vickers ANP 230 [place] [address] PCP - General Family Medicine 09/23/19 Yuri Pierre, MikeD 230 [place] [address] Pharmacist Internal Medicine 05/05/24 Basilio Hall MD [address] [place] [address] Cardiology 05/17/24 Ron Preciado MD [address] [place] [address] Pulmonary Disease 05/17/24 documented as of this encounter
--- OUTSIDE RECORDS SUMMARY | 2024-12-27 09:44 | XMS_ITS | Encounter Summary ---
Author Organization [employer] Address 75 [facility] 7t [place] [address] Care Team Providers Care Trial Mgr Name Role Phone Sariah Vickers Primary Care Provider [phone] Yuri Pierre PharmD Unavailable [phone] Basilio Hall MD Unavailable [phone] Ron Preciado MD Unavailable [phone] Reason for Visit * Reason Comments Med Refill Encounter Details Date Type Department Care Team (Late st Contact Info) Description 07/12/2022 Refill [facility] MEDICINE 230 [place] [address] Sariah Vickers ANP 230 [place] [address] Social History Tobacco Use Types Packs/Day Years [...] 12/27/2024 11:00 AM EST Medication Management [address] [address] Yuri Pierre, PharmD [address] [place] [address] 01/07/2025 9:30 AM EST Clinical Support [address] [address] Azeb Hall RN 505 [place] [address] 01/11/2025 1:00 PM EST Office Visit [address] [address] Sariah Vickers ANP [address] [place] [address] 02/03/2025 11:00 AM EST Medication Management [address] [address] Yuri Pierre, PharmBear [address] [place] [address] documented as of this encounter Visit Diagnoses Not on filedocumented in this encounter Care Teams Trial Mgr Relationship Specialty Start Date End Date Sariah Vickers ANP [address] [place] [address] PCP - General Family Medicine 09/23/19 Yuri Pierre, PharmD [address] [place] [address] Pharmacist Internal Medicine 05/05/24 Basilio Hall MD 596 [place] [address] Cardiology 05/17/24 Ron Preciado MD [address] [place] [address] Pulmonary Disease 05/17/24 documented as of this encounter
--- OUTSIDE RECORDS SUMMARY | 2024-12-27 09:44 | XMS_ITS | Encounter Summary ---
Author Organization [employer] Address 75 [facility] 7t [place] [address] Care Team Providers Care Workcell Operator Name Role Phone Sariah Vickers Primary Care Provider [phone] Yuri Pierre PharmD Unavailable [phone] Basilio Hall MD Unavailable [phone] Ron Preciado MD Unavailable [phone] Reason for Visit * Reason Onset Date Comments Med Refill 03/04/2023 Encounter Details Date Type Department Care Team (Late st Contact Info) Description 03/04/[address] [facility] MEDICINE 230 [place], [place] [phone] Sariah Vickers ANP 230 [place], [place] [phone] Med Refill Social History Tobacco Use Types [...] 50 MG tablet To be sent to: [facility] - [place], [place] - [address] [place] [address] documented in this encounter Plan of Treatment Upcoming Encounters Date Type Department Care Team ([facility] st Contact Info) Description 12/27/2024 11:00 AM EST Medication Management [address] [address] Yuri Pierre, PharmD [address] [place] [address] 01/07/2025 9:30 AM EST Clinical Support [address] [address] Azeb Hall RN 505 [place] [address] 01/11/2025 1:00 PM EST Office Visit [address] [address] Sariah Vickers, ANP [address] [place] [address] 02/03/2025 11:00 AM EST Medication Management [facility] 230 [place], [place] [phone] Yuri Pierre, PharmD 230 [place], [place] documented as of this encounter Goals [...] on filedocumented in this encounter Care Teams Workcell Operator Relationship Specialty Start Date End Date Sariah Vickers ANP 230 [place] [address] PCP - General Family Medicine 09/23/19 Yuri Pierre, PharmD 230 [place] [address] Pharmacist Internal Medicine 05/05/24 Basilio Hall MD 596 [place] [address] Cardiology 05/17/24 Ron Preciado MD [address] [place] [address] Pulmonary Disease 05/17/24 documented as of this encounter
--- OUTSIDE RECORDS SUMMARY | 2024-12-27 09:44 | XMS_ITS | Encounter Summary ---
Author Organization [employer] Address 75 [facility] 7t [place] [address] Care Team Providers Care Complex Commercial Litigation Paralegal Name Role Phone Sariah Vickers KAYLEE Primary Care Provider [phone] Yuri Pierre PharmD Unavailable [phone] Basilio Hall MD Unavailable [phone] Ron Preciado MD Unavailable [phone] Reason for Visit * Reason Comments Med Refill Encounter Details Date Type Department Care Team (Late st Contact Info) Description 10/04/2024 Refill [facility] [address] [place] [address] Zakia Uriostegui, FIELD PIPELINES SUPERVISOR 230 [place] [address] Type 2 diabetes mellitus with hyperglycemia (CMS/HCC) [...] 12/27/2024 11:00 AM EST Medication Management [address] [address] Yuri Pierre, PharmD [address] [place] [address] 01/07/2025 9:30 AM EST Clinical Support [address] [address] Azeb Hall, MARTIN 505 [place] [address] 01/11/2025 1:00 PM EST Office Visit [address] [address] Sariah Vickers ANP [address] [place] [address] 02/03/2025 11:00 AM EST Medication Management [address] [address] Yuri Pierre, PharmD 230 [place] [address] documented as of this encounter Goals Goal [...] documented as of this encounter Care Teams Complex Commercial Litigation Paralegal Relationship Specialty Start Date End Date Sariah Vickers ANP 230 [place] [address] PCP - General Family Medicine 09/23/19 Yuri Pierre, PharmD [address] [place] [address] Pharmacist Internal Medicine 05/05/24 Basilio Hall MD 596 [place] [address] Cardiology 05/17/24 Ron Preciado MD [address] [place] [address] Pulmonary Disease 05/17/24 documented as of this encounter
--- OUTSIDE RECORDS SUMMARY | 2024-12-27 09:44 | XMS_ITS | Encounter Summary ---
Author Organization [employer] Address 75 [facility] 7t [place] [address] Care Team Providers Care Harvesting Manager Name Role Phone Sariah Vickers KAYLEE Primary Care Provider [phone] Yuri Pierre PharmD Unavailable [phone] Basilio Hall MD Unavailable [phone] Ron Preciado MD Unavailable [phone] Reason for Visit * Reason Comments Med Refill Encounter Details Date Type Department Care Team (Late st Contact Info) Description 03/04/2023 Refill [facility] 230 [place] [address] Brittney Nava MD 230 [place] [address] Social History Tobacco Use Types Packs/Day Years [...] Description 12/27/2024 11:00 AM EST Medication Management [address] [address] Yuri Pierre, PharmD [address] [place] [address] 01/07/2025 9:30 AM EST Clinical Support [address] [address] Azeb Hall, RN 505 [place] [address] 01/11/2025 1:00 PM EST Office Visit [address] [address] Sariah Vickers ANP [address] [place] [address] 02/03/2025 11:00 AM EST Medication Management [address] [address] Yuri Pierre, PharmD [address] [place] [address] documented as of this encounter Goals Goal [...] on filedocumented in this encounter Care Teams Harvesting Manager Relationship Specialty Start Date End Date Sariah Vickers ANP 230 [place] [address] PCP - General Family Medicine 09/23/19 Yuri Pierre, MikeD 230 [place] [address] Pharmacist Internal Medicine 05/05/24 Basilio Hall MD 596 [place] [address] Cardiology 05/17/24 Ron Preciado MD [address] [place] [address] Pulmonary Disease 05/17/24 documented as of this encounter
--- OUTSIDE RECORDS SUMMARY | 2024-12-27 09:44 | XMS_ITS | Encounter Summary ---
Author Organization [employer] Address 75 [facility] 7t [place] [address] Care Team Providers Care Tank Systems Maintainer Name Role Phone Sariah Vickers Primary Care Provider [phone] Yuri Pierre PharmD Unavailable [phone] Basilio Hall MD Unavailable [phone] Ron Preciado MD Unavailable [phone] Reason for Visit * Reason Comments Med Refill Encounter Details Date Type Department Care Team (Late st Contact Info) Description 05/09/2023 Refill [facility] MEDICINE 230 [place] [address] Sariah Vickers ANP 230 [place] [address] High cholesterol Social History Tobacco Use Types [...] 12/27/2024 11:00 AM EST Medication Management [address] [address] Yuri Pierre, PharmD [address] [place] [address] 01/07/2025 9:30 AM EST Clinical Support [address] [address] Azeb Hall, RN 505 [place] [address] 01/11/2025 1:00 PM EST Office Visit [address] [address] Sariah Vickers ANP [address] [place] [address] 02/03/2025 11:00 AM EST Medication Management [address] [address] Yuri Pierre, PharmD [address] [place] [address] documented as of this encounter Goals Goal [...] hypercholesterolemia documented in this encounter Care Teams Tank Systems Maintainer Relationship Specialty Start Date End Date Sariah Vickers ANP 230 [place] [address] PCP - General Family Medicine 09/23/19 Yuri Pierre, MikeD [address] [place] [address] Pharmacist Internal Medicine 05/05/24 Basilio Hall MD [address] [place] [address] Cardiology 05/17/24 Ron Preciado MD [address] [place] [address] Pulmonary Disease 05/17/24 documented as of this encounter
--- OUTSIDE RECORDS SUMMARY | 2024-12-27 09:44 | XMS_ITS | Encounter Summary ---
Author Organization [employer] Address 75 [facility] 7t [place] [address] Care Team Providers Care Supervisor Evaporator Name Role Phone Sariah Vickers Primary Care Provider [phone] Yuri Pierre PharmD Unavailable [phone] Basilio Hall MD Unavailable [phone] Ron Preciado MD Unavailable [phone] Reason for Visit * Reason Comments Med Refill Encounter Details Date Type Department Care Team (Late st Contact Info) Description 12/19/2022 Refill [facility] MEDICINE 230 [place] [address] Sariah Vicekrs ANP 230 [place] [address] Vertigo Social History Tobacco Use Types Packs/Day [...] 12/27/2024 11:00 AM EST Medication Management [address] [address] Yuri Pierre, PharmD [address] [place] [address] 01/07/2025 9:30 AM EST Clinical Support [address] [address] Azeb Hall, RN 505 [place] [address] 01/11/2025 1:00 PM EST Office Visit [address] [address] Sariah Vickers ANP [address] [place] [address] 02/03/2025 11:00 AM EST Medication Management [address] [address] Yuri Pierre, PharmD [address] [place] [address] documented as of this encounter Goals Goal [...] giddiness documented in this encounter Care Teams Supervisor Evaporator Relationship Specialty Start Date End Date Sariah Vickers ANP 230 [place] [address] PCP - General Family Medicine 09/23/19 Yuri Pierre, MikeD [address] [place] [address] Pharmacist Internal Medicine 05/05/24 Basilio Hall MD 596 [place] [address] Cardiology 05/17/24 Ron Preciado MD [address] [place] [address] Pulmonary Disease 05/17/24 documented as of this encounter
--- OUTSIDE RECORDS SUMMARY | 2024-12-27 09:44 | XMS_ITS | Encounter Summary ---
Author Organization [employer] Address 75 [facility] 7t [place] [address] Care Team Providers Care Home Health Aid Name Role Phone Sariah Vickers Primary Care Provider [phone] Yuri Pierre PharmD Unavailable [phone] Basilio Hall MD Unavailable [phone] Ron Preciado MD Unavailable [phone] Reason for Visit * Reason Comments Med Refill Encounter Details Date Type Department Care Team (Late st Contact Info) Description 02/28/2023 Refill [facility] MEDICINE 230 [place] [address] Sariah Vickers ANP 230 [place] [address] Cervicalgia Social History Tobacco Use Types Packs/Day [...] 12/27/2024 11:00 AM EST Medication Management [address] [address] Yuri Pierre, PharmD [address] [place] [address] 01/07/2025 9:30 AM EST Clinical Support [address] [address] Azeb Hall, RN 505 [place] [address] 01/11/2025 1:00 PM EST Office Visit [address] [address] Sariah Vickers ANP [address] [place] [address] 02/03/2025 11:00 AM EST Medication Management [address] [address] Yuri Pierre, PharmD [address] [place] [address] documented as of this encounter Goals Goal [...] Cervicalgia documented in this encounter Care Teams Home Health Aid Relationship Specialty Start Date End Date Sariah Vickers ANP 230 [place] [address] PCP - General Family Medicine 09/23/19 Yuri Pierre, MikeD 230 [place] [address] Pharmacist Internal Medicine 05/05/24 Basilio Hall MD 596 [place] [address] Cardiology 05/17/24 Ron Preciado MD [address] [place] [address] Pulmonary Disease 05/17/24 documented as of this encounter
--- OUTSIDE RECORDS SUMMARY | 2024-12-27 09:44 | XMS_ITS | Encounter Summary ---
Author Organization [employer] Address 75 [facility] 7t [place] [address] Care Team Providers Care Allergist Immunologist Name Role Phone Sariah Vickers Primary Care Provider [phone] Yuri Pierre PharmD Unavailable [phone] Basilio Hall MD Unavailable [phone] Ron Preciado MD Unavailable [phone] Reason for Visit * Reason Comments Med Refill Encounter Details Date Type Department Care Team (Late st Contact Info) Description 06/30/2023 Refill [facility] MEDICINE 230 [place] [address] Sariah Vickers ANP 230 [place] [address] Neck pain Social History Tobacco Use Types [...] 12/27/2024 11:00 AM EST Medication Management [address] [address] Yuri Pierre, PharmD [address] [place] [address] 01/07/2025 9:30 AM EST Clinical Support [address] [address] Azeb Hall, MARTIN 505 [place] [address] 01/11/2025 1:00 PM EST Office Visit [address] [address] Sariah Vickers, KAYLEE [address] [place] [address] 02/03/2025 11:00 AM EST Medication Management [address] [address] Yuri Pierre, PharmD [address] [place] [address] documented as of this encounter Goals Goal [...] as of this encounter Care Teams Allergist Immunologist Relationship Specialty Start Date End Date Sariah Vickers ANP 230 [place] [address] PCP - General Family Medicine 09/23/19 Yuri Pierre PharmD 230 [place] [address] Pharmacist Internal Medicine 05/05/24 Basilio Hall MD [address] [place] [address] Cardiology 05/17/24 Ron Preciado MD [address] [place] [address] Pulmonary Disease 05/17/24 documented as of this encounter
--- OUTSIDE RECORDS SUMMARY | 2024-12-27 09:44 | XMS_ITS | Encounter Summary ---
Author Organization [employer] Address 75 [facility] 7t [place] [address] Care Team Providers Care Electric Wheelchair Repairer Name Role Phone Sariah Vickers Primary Care Provider [phone] Yuri Pierre PharmD Unavailable [phone] Bsailio Hall MD Unavailable [phone] Ron Preciado MD Unavailable [phone] Reason for Visit * Reason Comments Med Refill Encounter Details Date Type Department Care Team (Late st Contact Info) Description 07/10/2022 Refill [facility] MEDICINE 230 [place] [address] Sariah Vickers ANP 230 [place] [address] Vertigo Social History Tobacco Use Types Packs/Day [...] 12/27/2024 11:00 AM EST Medication Management [address] [address] Yuri Pierre, PharmBear [address] [place] [address] 01/07/2025 9:30 AM EST Clinical Support [address] [address] Azeb Hall RN 505 [place] [address] 01/11/2025 1:00 PM EST Office Visit [address] [address] Sariah Vickers ANP [address] [place] [address] 02/03/2025 11:00 AM EST Medication Management [address] [address] Yuri Pierre, Dileep [address] [place] [address] documented as of this encounter Visit Diagnoses Diagnosis Vertigo Dizziness and giddiness documented in this encounter Care Teams Electric Wheelchair Repairer Relationship Specialty Start Date End Date Sariah Vickers ANP [address] [place] [address] PCP - General Family Medicine 09/23/19 Yuri Pierre, PharmD [address] [place] [address] Pharmacist Internal Medicine 05/05/24 Basilio Hall MD 5[address] [place] [address] Cardiology 05/17/24 Ron Preciado MD [address] [place], [place] [address] Pulmonary Disease 05/17/24 documented as of this encounter
--- OUTSIDE RECORDS SUMMARY | 2024-12-27 09:44 | XMS_ITS | Encounter Summary ---
Author Organization [employer] Address 75 [facility] 7t [place] [address] Care Team Providers Care Industrial Machine Assembler Name Role Phone Sariah Vickers Primary Care Provider Yuri Pierre PharmD Unavailable [phone] Basilio Hall MD Unavailable [phone] Ron Preciado MD Unavailable [phone] Reason for Visit * Reason Onset Date Comments Nurse Triage 01/14/2023 Encounter Details Date Type Department Care Team (Late st Contact Info) Description 01/14/2023 Telephone [facility] MEDICINE 230 [place] [address] Sariah Vickers ANP 230 [place] [address] Nurse Triage Social History Tobacco Use Types [...] 01/14/2023 9:26 AM EST Called pt. Via [employer] translator/interpreter [phone] Kelly. Pt. States that she has been having a fire feeling in her legs. Its like A burning that goes down her legs . Pt. Unsure if it because of her Diabetes. Pt. Went to [facility] ED for pain on her left side [...] at 10am. Will send note to clinical life care planner to have note put in chart . [...] Severe pain now, pt was seen at [facility] on 01/13 for pain in leg. Pt is still symptomatic The caller accepted this outcome Please contact pt at [phone] (bilingual interpreter needed) documented in this encounter Plan of Treatment Upcoming Encounters Date Type Department Care Team (Late st Contact Info) Description 12/27/2024 11:00 AM EST Medication Management [address] [address] Yuri Pierre, Dileep [address] [place] [address] 01/07/2025 9:30 AM EST Clinical Support [address] [address] Azeb Hall, RN 505 [place] [address] 01/11/2025 1:00 PM EST Office Visit [address] [address] Sariah Vickers ANP [address] [place] [address] 02/03/2025 11:00 AM EST Medication Management [address] [address] Yuri Pierre, PharmD [address] [place] [address] documented as of this encounter Goals Goal [...] filedocumented in this encounter Care Teams Industrial Machine Assembler Relationship Specialty Start Date End Date Sariah Vickers ANP 230 [place] [address] PCP - General Family Medicine 09/23/19 Yuri Pierre, MikeD 230 [place] [address] Pharmacist Internal Medicine 05/05/24 Basilio Hall MD [address] [place] [address] Cardiology 05/17/24 Ron Preciado MD [address] [place] [address] Pulmonary Disease 05/17/24 documented as of this encounter
--- OUTSIDE RECORDS SUMMARY | 2024-12-27 09:44 | XMS_ITS | Clinical Summary ---
Author Organization 175 [facility] Address [address] [place] [address] Phone Care Team Providers Care Associate Entertainment Editor Name Role Phone Sariah Vickers NP [...] Depression Screening 02/18/2024 COVID-19 Vaccine (1 - 2024-2 6 season) 2024 Influenza Vaccine (#1) 2024 11/09/2018 [...] age to complete this topic Care Teams Associate Entertainment Editor Relationship Specialty Start Date End Date Sariah Vickers NP [address] [place] [phone] PCP - General 12/03/23
--- OUTSIDE RECORDS SUMMARY | 2024-12-27 09:44 | XMS_ITS | Encounter Summary ---
Author Organization [email or web address] Address 75 [facility] 7t [place] [address] Care Team Providers Care Tram Inspector Name Role Phone Sariah Vickers Primary Care Provider [phone] Yuri Pierre PharmD Unavailable [phone] Basilio Hall MD Unavailable [phone] Ron Preciado MD Unavailable [phone] Reason for Visit * Reason Comments Med Refill Encounter Details Date Type Department Care Team (Late st Contact Info) Description 11/12/2024 Refill [facility] MEDICINE 230 [place] [address] Sariah Vickers ANP 230 [place] [address] Neck pain Social History Tobacco Use Types [...] 12/27/2024 11:00 AM EST Medication Management [address] [address] Yuri Pierre, MikeD [address] [place] [address] 01/07/2025 9:30 AM EST Clinical Support [address] [address] Azeb Hall, MARTIN 505 [place] [address] 01/11/2025 1:00 PM EST Office Visit [address] [address] Sariah Vikcers, KAYLEE [address] [place] [address] 02/03/2025 11:00 AM EST Medication Management [address] [address] Yuri Pierre, PharmD [address] [place] [address] documented as of this encounter Goals Goal [...] documented as of this encounter Care Teams Tram Inspector Relationship Specialty Start Date End Date Sariah Vickers ANP 230 [place] [address] PCP - General Family Medicine 09/23/19 Yuri Pierre, MikeD 230 [place] [address] Pharmacist Internal Medicine 05/05/24 Basilio Hall MD 596 [place] [address] Cardiology 05/17/24 Ron Preciado MD [address] [place] [address] Pulmonary Disease 05/17/24 documented as of this encounter
--- OUTSIDE RECORDS SUMMARY | 2024-12-27 09:44 | XMS_ITS | Encounter Summary ---
Author Organization [employer] Address 75 [facility] 7t [place] [address] Care Team Providers Care Application Packager Name Role Phone Sariah Vickers Primary Care Provider [phone] Yuri Pierre PharmD Unavailable [phone] Basilio Hall MD Unavailable [phone] Ron Preciado MD Unavailable [phone] Reason for Visit * Reason Comments Med Refill Encounter Details Date Type Department Care Team (Late st Contact Info) Description 03/07/2023 Refill [facility] MEDICINE 230 [place] [address] Sariah Vickers ANP 230 [place] [address] Vertigo Social History Tobacco Use Types Packs/Day [...] 12/27/2024 11:00 AM EST Medication Management [address] [address] Yuri Pirere, PharmD [address] [place] [address] 01/07/2025 9:30 AM EST Clinical Support [address] [address] Azeb Hall, RN 505 [place] [address] 01/11/2025 1:00 PM EST Office Visit [address] [address] Sariah Vickers ANP [address] [place] [address] 02/03/2025 11:00 AM EST Medication Management [address] [address] Yuri Pierre, PharmD [address] [place] [address] documented as of this encounter Goals Goal [...] giddiness documented in this encounter Care Teams Application Packager Relationship Specialty Start Date End Date Sariah Vickers ANP 230 [place] [address] PCP - General Family Medicine 09/23/19 Yuri Pierre, MikeD [address] [place] [address] Pharmacist Internal Medicine 05/05/24 Basilio Hall MD 596 [place] [address] Cardiology 05/17/24 Ron Preciado MD [address] [place] [address] Pulmonary Disease 05/17/24 documented as of this encounter
--- OUTSIDE RECORDS SUMMARY | 2024-12-27 09:44 | XMS_ITS | Encounter Summary ---
Author Organization [employer] Address 75 [facility] 7t [place] [address] Care Team Providers Care Oil Fire Specialist Name Role Phone Sariah Vickers Primary Care Provider [phone] Yuri Pierre PharmD Unavailable [phone] Basilio Hall MD Unavailable [phone] Ron Preciado MD Unavailable [phone] Reason for Visit * Reason Comments Med Refill Encounter Details Date Type Department Care Team (Late st Contact Info) Description 12/27/2022 Refill [facility] MED[facility]INE 230 [place] [address] Sariah Vickers ANP 230 [place] [address] Neck pain Social History Tobacco Use Types [...] 12/27/2024 11:00 AM EST Medication Management [address] [address] Yuri Pierre, PharmD [address] [place] [address] 01/07/2025 9:30 AM EST Clinical Support [address] [address] Azeb Hall, RN 505 [place] [address] 01/11/2025 1:00 PM EST Office Visit [address] [address] Sariah Vickers ANP [address] [place] [address] 02/03/2025 11:00 AM EST Medication Management [address] [address] Yuri Pierre, PharmD [address] [place] [address] documented as of this encounter Goals Goal [...] Cervicalgia documented in this encounter Care Teams Oil Fire Specialist Relationship Specialty Start Date End Date Sariah Vickers ANP 230 [place] [address] PCP - General Family Medicine 09/23/19 Yuri Pierre, MikeD [address] [place] [address] Pharmacist Internal Medicine 05/05/24 Basilio Hall MD [address] [place] [address] Cardiology 05/17/24 Ron Preciado MD [address] [place] [address] Pulmonary Disease 05/17/24 documented as of this encounter
--- OUTSIDE RECORDS SUMMARY | 2024-12-27 09:44 | XMS_ITS | Encounter Summary ---
Author Organization [employer] Address 75 [facility] 7t [place] [address] Care Team Providers Care Beef Killer Name Role Phone Sariah Vickers Primary Care Provider [phone] Yuri Pierre PharmD Unavailable [phone] Basilio Hall MD Unavailable [phone] Ron Preciado MD Unavailable [phone] Reason for Visit * Reason Comments Med Refill Encounter Details Date Type Department Care Team (Late st Contact Info) Description 05/21/2023 Refill [facility] MEDICINE 230 [place] [address] Sariah Vickers ANP 230 [place] [address] Neck pain Social History Tobacco Use Types [...] Description 12/27/2024 11:00 AM EST Medication Management [address] [address] Yuri Pierre, PharmD [address] [place] [address] 01/07/2025 9:30 AM EST Clinical Support [address] [address] Azeb Hall, MARTIN 505 [place] [address] 01/11/2025 1:00 PM EST Office Visit [address] [address] Sariah Vickers, KAYLEE [address] [place] [address] 02/03/2025 11:00 AM EST Medication Management [address] [place] [address] Yuri Pierre, PharmD 230 [place] [address] documented as of this encounter Goals Goal [...] Cervicalgia documented in this encounter Care Teams Beef Killer Relationship Specialty Start Date End Date Sariah Vickers ANP 230 [place] [address] PCP - General Family Medicine 09/23/19 Yuri Pierre, PharmD 230 [place] [address] Pharmacist Internal Medicine 05/05/24 Basilio Hall MD [address] [place] [address] Cardiology 05/17/24 Ron Preciado MD [address] [place] [address] Pulmonary Disease 05/17/24 documented as of this encounter
--- OUTSIDE RECORDS SUMMARY | 2024-12-27 09:44 | XMS_ITS | Encounter Summary ---
Author Organization [employer] Address 75 [facility] 7t [place] [address] Care Team Providers Care Enamel Cracker Name Role Phone Sariah Vickers Primary Care Provider [phone] Yuri Pierre PharmD Unavailable [phone] Basilio Hall MD Unavailable [phone] Ron Preciado MD Unavailable [phone] Reason for Visit * Reason Comments Med Refill Encounter Details Date Type Department Care Team (Late st Contact Info) Description 12/21/2024 Refill [facility] 230 [place] [address] Sariah Vickers ANP 230 [place] [address] Social History Tobacco Use Types Packs/Day Years [...] Description 12/27/2024 11:00 AM EST Medication Management [address] [address] Yuri Pierre, MikeD [address] [place] [address] 01/07/2025 9:30 AM EST Clinical Support [address] [address] Azeb Hall, MARTIN 505 [place] [address] 01/11/2025 1:00 PM EST Office Visit [address] [address] Sariah Vickers, KAYLEE [address] [place] [address] 02/03/2025 11:00 AM EST Medication Management [address] [address] Yuri Pierre, PharmD [address] [place] [address] [place] [address] documented as of this encounter Goals Goal [...] documented as of this encounter Care Teams Enamel Cracker Relationship Specialty Start Date End Date Sariah Vickers ANP 230 [place] [address] PCP - General Family Medicine 09/23/19 Yuri Pierre, MikeD 230 [place] [address] Pharmacist Internal Medicine 05/05/24 Basilio Hall MD 596 [place] [address] Cardiology 05/17/24 Ron Preciado MD [address] [place] [address] Pulmonary Disease 05/17/24 documented as of this encounter
--- OUTSIDE RECORDS SUMMARY | 2024-12-27 09:44 | XMS_ITS | Encounter Summary ---
Author Organization [employer] Address 75 [facility] 7t [place] [address] Care Team Providers Care Waxer Name Role Phone Sariah Vickers Primary Care Provider [phone] Yuri Pierre PharmD Unavailable [phone] Basilio Hall MD Unavailable [phone] Ron Preciado MD Unavailable [phone] Encounter Details Date Type Department Care Team (Late st Contact Info) Description 10/26/2024 Results Follow-Up [facility] MEDICINE 230 [place] [address] Sariah Vickers ANP 230 [place] [address] Thyroid Peroxidase Antibodies, Cardiolipin Antibodies (IgA,IgG,IgM) Social [...] 12/27/2024 11:00 AM EST Medication Management [address] [address] Yuri Pierre, PharmD [address] [place] [address] 01/07/2025 9:30 AM EST Clinical Support [address] [address] Azeb Hall RN 505 [place] [address] 01/11/2025 1:00 PM EST Office Visit [address] [address] Sariah Vickers ANP [address] [place] [address] 02/03/2025 11:00 AM EST Medication Management [facility] MEDICINE 230 [place] [address] Yuri Pierre, Dileep [address] [place] [address] documented as of this encounter Goals Goal [...] documented as of this encounter Care Teams Waxer Relationship Specialty Start Date End Date Sariah Vickers ANP 230 [place] [address] PCP - General Family Medicine 09/23/19 Yuri Pierre, PharmD [address] [place] [address] Pharmacist Internal Medicine 05/05/24 Basilio Hall MD 596 [place] [address] Cardiology 05/17/24 Ron Preciado MD [address] [place] [address] Pulmonary Disease 05/17/24 documented as of this encounter
--- OUTSIDE RECORDS SUMMARY | 2024-12-27 09:44 | XMS_ITS | Encounter Summary ---
Author Organization [employer] Address 75 [facility] 7t [place] [address] Care Team Providers Care Basin Cleaner Name Role Phone Sariah Vickers Primary Care Provider [phone] Yuri Pierre PharmD Unavailable [phone] Basilio Hall MD Unavailable [phone] Ron Preciado MD Unavailable [phone] Reason for Visit * Reason Onset Date Comments Nurse Triage 12/24/2022 Encounter Details Date Type Department Care Team (Late st Contact Info) Description 12/24/2022 Telephone [facility] MEDICINE 230 [place] [address] Sariah Vickers ANP 230 [place] [address] Nurse Triage Social History Tobacco Use Types [...] - 12/24/2022 1:11 PM EST Called pt.via [employer] po[employer] 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 Pt. States that she wants to [...] regimen and possible referral to a new Top Cager due to pt. Not having jeremie in [...] accepted this outcome Please contact pt at [phone] documented in this encounter Plan of Treatment Upcoming Encounters Date Type Department Care Team (Late st Contact Info) Description 12/27/2024 11:00 AM EST Medication Management [address] [phone] Yuri Pierre PharmD [address] [place] [address] 01/07/2025 9:30 AM EST Clinical Support [address] [phone] Azeb Hall RN 505 [place] [address] 01/11/2025 1:00 PM EST Office Visit [address] [address] Sariah Vickers ANP [address] [place] [address] 02/03/2025 11:00 AM EST Medication Management [address] [phone] Yuri Pierre PharmBear [address] [place] [address] documented as of this encounter Goals Goal [...] on filedocumented in this encounter Care Teams Basin Cleaner Relationship Specialty Start Date End Date Sariah Vickers ANP [address] [place] [address] PCP - General Family Medicine 09/23/19 Yuri Pierre PharmD [address] [place] [address] Pharmacist Internal Medicine 05/05/24 Basilio Hall MD 596 [place] [address] Cardiology 05/17/24 Ron Preciado MD [address] [place] [address] Pulmonary Disease 05/17/24 documented as of this encounter
--- OUTSIDE RECORDS SUMMARY | 2024-12-27 09:44 | XMS_ITS | Encounter Summary ---
Author Organization [email or web address] Address 75 [facility] 7t [place] [address] Care Team Providers Care Language Specialist Name Role Phone Sariah Vickers KAYLEE Primary Care Provider [phone] Yuri Pierre PharmD Unavailable [phone] Basilio Hall MD Unavailable [phone] Ron Preciado MD Unavailable [phone] Reason for Visit * Reason Comments Med Refill Encounter Details Date Type Department Care Team (Late st Contact Info) Description 11/11/2024 Refill [facility] 230 [place] [address] Yogesh Gomez, JOHN 230 [place] [address] Social History Tobacco Use Types Packs/Day Years [...] ([facility] st Contact Info) Description 12/27/2024 11:00 AM EST Medication Management [address] [address] Yuri Pierre, PharmD [address] [place] [address] 01/07/2025 9:30 AM EST Clinical Support [address] [address] Azeb Hall, MARTIN 505 [place] [address] 01/11/2025 1:00 PM EST Office Visit [address] [address] Sariah Vickers, KAYLEE 230 [place] [address] 02/03/2025 11:00 AM EST Medication Management [facility]INE 230 [place] [address] Yuri Pierre, MikeD 230 [place] [address] documented as of this encounter Goals Goal [...] as of this encounter Care Teams Language Specialist Relationship Specialty Start Date End Date Sariah Vickers ANP 230 [place] [address] PCP - General Family Medicine 09/23/19 Yuri Pierre, PharmD [address] [place] [address] Pharmacist Internal Medicine 05/05/24 Basilio Hall MD 596 [place] [address] Cardiology 05/17/24 Ron Preciado MD [address] [place] [address] Pulmonary Disease 05/17/24 documented as of this encounter
--- OUTSIDE RECORDS SUMMARY | 2024-12-27 09:44 | XMS_ITS | Encounter Summary ---
Author Organization [employer] Address 75 [facility] 7t [place] [address] Care Team Providers Care E Marketing Specialist Name Role Phone Sariah Vickers Primary Care Provider [phone] Yuri Pierre PharmD Unavailable [phone] Basilio Hall MD Unavailable [phone] Ron Preciado MD Unavailable [phone] Reason for Visit * Reason Comments Med Refill Encounter Details Date Type Department Care Team (Late st Contact Info) Description 08/14/2022 Refill [facility] [address] [place] [address] Sariah Vickers ANP 230 [place] [address] Severe persistent asthma without complication Social History [...] 12/27/2024 11:00 AM EST Medication Management [address] [address] Yuri Pierre, PharmBear [address] [place] [address] 01/07/2025 9:30 AM EST Clinical Support [address] [address] Azeb Hall RN 505 [place] [address] 01/11/2025 1:00 PM EST Office Visit [address] [address] Sariah Vickers ANP [address] [place] [address] 02/03/2025 11:00 AM EST Medication Management [address] [address] Yuri Pierre PharmBear [address] [place] [address] documented as of this encounter Visit Diagnoses Diagnosis Severe persistent asthma without complication (HCC) documented in this encounter Care Teams E Marketing Specialist Relationship Specialty Start Date End Date Sariah Vickers ANP [address] [place] [address] PCP - General Family Medicine 09/23/19 Yuri Pierre, PharmD [address] [place] [address] Pharmacist Internal Medicine 05/05/24 Basilio Hall MD 596 [place] [address] Cardiology 05/17/24 Ron Preciado MD [address] [place] [address] Pulmonary Disease 05/17/24 documented as of this encounter
--- OUTSIDE RECORDS SUMMARY | 2024-12-27 09:44 | XMS_ITS ---
Mammography Report Signed Patient: Nuvia Fay EMR #: [id number] : 1960cct:[id number] Age/Sex: 63 / FADM Date: 04/12/24 Loc: HO.MAMMO Attending Dr: Monica Lozano CNM Ordering Physician: Monica LozanoMResults: 2Beni gn Findings Date of Service: 04/12/24Follow Up: 1 Year From Orig inal Mammogram Procedure(s): MM tomosynthesis screening BI Accession Number(s): [id number] cc: Monica Lozano CNM; ANTHONY RUIZ NP [...] 04/17/24 1235 DD/ 1348 TD/TT: 04/12/24 1405 Advisory Application Developer: [facility] External Provider IMG BI PROCEDURES Edited Result - Final * Albumin, Random Urine W/Creatinine (01/02/2024 8:44 AM EST) Creatinine, Urine 47.20 mg/dL [facility] Microalbumin Urine 7.0 mg/L [facility] Microalbum Creatinine Ratio Ur 14.8 <30 ug/mg cr [facility] Comment:Albumin/Creatinine R atio Reference Ranges: Normal: < 30 ug/mg creatinine Microalbuminuria: 30 - 300 ug/mg creatinineClinical Albuminuria: > 300 ug/mg creatinine Urine (Urine, Random) 01/02/2024 8:44 AM EST 01/02/2024 11:09 AM EST [facility] LAB URINE ORDERABLES Final Resul t [facility] [address] [place] [address] [phone] * (ABNORMAL) Hm Colonoscopy (12/27/2021) Colonoscopy Abnormal(A ) Normal Result [facility] Provider HEALTH MAINTENANCE Final Result * HPV E6/E7 RFLX ALFRED 16 18/45 (05/09/2020 11:19 AM EDT) HPV mRNA E6/E7 rflx Not Detected Not Detected [facility] Comment: Methodology: Chip Tuner-Mediated Amplification This assay detects E6/E7 viral messenger RNA (mRNA) from 14 high-risk HPV types (16,18,31,33,35,39,45,51,52,56,58,59,66,68). The analytical performance characteristics of this assay have been determined by [employer]. The modifications have not been cleared or approved by the FDA. This assay has been validated pursuant to the CLIA regulations and is used for clinical purposes. For additional information, please refer to http://[email or web address]/faq/UGR041q5 (This link if provided for information/ educational purposes only.) THIS TEST WAS PERFORMED AT: [facility] [employer] [address] [place] [address] [address] FLO[address],[place] [address] HERNAN WARREN MD 05/09/2020 11:1 9 AM EDT [facility] HISTORICAL/NON ORDERABLE LABS Fi nal Result [facility] [address] from Last 3 Months or Most Recently Relevant to Health Maintenance Insurance [facility] 65 [facility] Care Teams Mobile Mechanic Relationship Specialty Start Date End Date Anthony Ruiz ANP [address] [place] [address] PCP - General Family Medicine 09/23/19 Yuri Pierre, PharmD [address] [place] [address] Pharmacist Internal Medicine 05/05/24 Basilio Hall MD [address] [place] [address] Cardiology 05/17/24 Ron Preciado MD [address] [place] [address] Pulmonary Disease 05/17/24 Clinical Summary Created on: December 27, 2024 Nuvia Fay : 1960 Sex: Female Author Organization [employer] [facility] Address [address] [place] [address] Care Team Providers Care Mobile Mechanic Name Role Phone Anthony Ruiz Primary Care Provider Yuri Pierre PharmD Unavailable [phone] Basilio Hall MD Unavailable [phone] Ron Preciado MD Unavailable [phone] Allergies Active Allergy Reactions Criticality Noted [...] mouth in the morning. Active Lactobacillus-In ulin ([facility] [email or web address] [facility]) capsule 023 Active Xolair 150 MG/ML injection [...] 100 each 5 025 Active Continuous Glucose Antitank Assault Gunner (FreeStyle Jalil 3 [place]) device 1 each Once per day. Use as directed for CGM 1 each 025 Active Continuous Glucose Sensor (FreeStyle Jalil 3 Plus Sensor) misc 1 each every 15 days. Apply 1 every 15 days as directed for CGM 2 each 11 025 Active Ketotifen Fumarate ( Ketotifen Fumarate) 0.035 % solutionIndicati ons:Allergic conjunctivitis of both eyes Administer 1 drop into affected eye(s) 2 times daily. 10 mL 5 025 Active insulin lispro (HumaLOG KWIKPEN) 100 UNIT/ML injectionIndicat ions:Type 2 diabetes mellitus with hyperlipidemia (HCC) Take 4-6 units as needed if BG high while taking prednisone; As needed as directed by provider 6 mL 1 025 Active hydrocortisone (Anusol-HC) 2.5 % rectal cream APPLY 1 APPLICATORFUL RECTALLY TWICE DAILY FOR FOR HEMORRHOIDS 025 Active busPIRone (Buspar) 15 MG tablet Take 1 tablet by mouth every 6 (six) hours during the day. Active cetirizine (ZyrTEC) 10 MG tablet Take 1 tablet (10 mg) by mouth Once per day. 30 tablet 11 025 2025 Active TRUEplus Lancets 33G miscIndications: Type 2 diabetes mellitus with hyperglycemia ([facility]) TEST BLOOD SUGAR FOUR TIMES DAILY 200 each 5 025 Active Fluticasone-Salm eterol 250-50 MCG/ACT aerosol powderIndication s:Severe persistent asthma without complication ([facility]) INHALE 1 PUFF BY MOUTH TWICE DAILY, RINSE MOUTH AFTER USING. 60 each 5 Active fluticasone (Flonase) 50 MCG/ACT nasal spray [...] long-term current use of insulin ([facility]) USE 1 SPRAY (3MG) IN ONE NOSTRIL FOR A PATIENT WITH SEVERE HYPOGLYCEMIA WHO IS NOT RESPONSIVE AND UNABLE SELF-TREAT WITH GLUCOSE. AFTERWARDS TURN ON SIDE. MAY REPEAT IN 15MINUTES IF PATIENT DOES NOT RESPOND. 2 each 1 Active enalapril (Vasotec) 20 MG tabletIndication s:Essential [...] EVERY 6 HOURS NEEDED 90 mL 5 Active TRUEplus Glucose 4 g chewable tabletIndication s:Type 2 diabetes mellitus with hyperlipidemia (HCC) CHEW 4 TABLETS NEEDED FOR low blood sugar (LESS THAN 70mg/dL) 50 tablet 12 Active acetaminophen (Tylenol) 325 MG tabletIndication s:Neck [...] week. 1 each Active Continuous Glucose Sensor (Dexcom G7 Sensor) miscIndications: Type 2 diabetes mellitus with hyperlipidemia (HCC) 1 each 3 times daily. Apply 1 sensor every 10 days 3 each 11 025 2024 Active gabapentin (Neurontin) 400 MG capsuleIndicatio ns:Chronic SI joint pain Take 1 capsule (400 mg) by mouth at bedtime. 30 capsule 2 Active amLODIPine (Norvasc) 10 MG tablet TAKE 1 TABLET BY MOUTH EVERY EVENING 90 tablet 1 Active montelukast (Singulair) 10 MG tablet TAKE 1 TABLET BY MOUTH EVERY EVENING 90 tablet 1 Active Glutose 15 40 % gel oral gel TAKE 15 GRAMS BY MOUTH ONCE DAILY NEEDED FOR LOW BLOOD SUGAR 112.5 g 2 Active glucose 4 g chewable tabletIndication s:Type [...] DAILY NEEDED FOR PAIN 100 g 1 2024 Discontinued gabapentin (Neurontin) 400 MG capsuleIndicatio ns:Chronic SI joint pain TAKE 1 CAPSULE BY MOUTH AT BEDTIME 30 capsule 2 2024 Discontinued(R eorder (will not trigger notification to Pharmacy)) acetaminophen (Tylenol) 325 MG tabletIndication s:Neck pain TAKE 1 TO 2 TABLETS BY MOUTH EVERY 6 HOURS NEEDED 120 tablet 2024 Discontinued traMADol (Ultram) 50 MG tabletIndication s:Cervicalgia TAKE 1 TABLET BY MOUTH TWICE DAILY IN THE MORNING AND AT BEDTIME NEEDED FOR SEVERE PAIN 60 tablet 2024 Discontinued(R eorder (will not trigger notification to Pharmacy)) Glutose 15 40 % gel oral gel TAKE 15 GRAMS BY MOUTH DAILY NEEDED FOR LOW BLOOD SUGAR 112.5 g 2 2024 Discontinued ipratropium-albu terol (Duo-Neb) 0.5-2.5 mg/3 mL nebulizer solutionIndicati ons:Severe persistent asthma without complication (HCC) INHALE 1 AMPULE USING A NEBULIZER EVERY 6 HOURS NEEDED 90 mL 5 025 2024 Discontinued(R eorder (will not trigger notification to Pharmacy)) predniSONE (Deltasone) 20 MG tablet Take 2 tablets (40 mg) by mouth Once per day for 5 days. 10 tablet 025 2024 Continuous Glucose Antitank Assault Gunner (Dexcom G7 Antitank Assault Gunner) deviceIndication s:Type 2 diabetes mellitus with hyperlipidemia [...] to seal bleeding vessel Will refer to crusher for followup if needed Return precautions for [...] She is currently connected with services through [facility]. Pt needing additional support due to [...] her family. She will continue services with [facility] for OP therapy and psychiatry services. clinician will be available if needed during next medical appointment. PLAN: (check all that apply) Continue with current services (defined as services in the past 12 months) . Pt is engaged with OP therapy and psychiatry services with [facility] @ [facility] Excessive attrition [...] her family. She will continue services with [facility] for OP therapy and psychiatry services. clinician will be available if needed during next medical appointment. PLAN: (check all that apply) Continue with current services (defined as services in the past 12 months) . Pt is engaged with OP therapy and psychiatry services with [facility] @ [facility] Fibromyalgia 07/31/2022 Asthma-COPD overlap syndrome (CMS/HCC) Right [...] for possible plantar fasciitis -referred today to tea and spice supervisor x ongoing discomfort -may need orthopedic [...] out to [facility] team as needed Assessment & Plan (08/07/2022 [...] 10/29/2022 Acute asthma exacerbation 07/31/2022 COPD exacerbation ([facility]/HCC) 07/31/2022 05/17/2024 Assessment & Plan (10/27/2023 4:48 [...] Type Department Care Team Description 12/21/[address] [facility] WALK-IN [address] [address] Anthony Ruiz ANP 12/20/[address] [facility] MEDICINE [address] [place] [phone] Anthony Ruiz ANP ER Follow-up 12/20/[address] [facility] MEDICINE [address] [place] [address] Anthony Ruiz ANP Chronic SI joint pain 12/18/2024 Orders Only GENERIC EXTERNAL DATA DEPARTMENT Provider, Generic External Data 12/17/[address] [address] Anthony Ruiz ANP Chronic SI joint pain 12/16/2024 2:20 PM EDT [facility] [address] [address] Samantha Kumar DO Type 2 diabetes mellitus with hyperlipidemia (CMS/HCC) (Primary Dx) 12/16/2024 Telephone [facility] [address] [address] Brittney Nava MD Triage 12/16/2024 Travel 12/15/2024 Orders Only [facility] External Provider, [facility] 12/15/[address] [facility] CHC MED & PEDS [address] [place] [address] Anthony Ruiz ANP Med Refill 12/13/[address] [facility] MED & PEDS [address] [place], [place] [phone] Anthony Ruiz ANP Neck pain; Cervicalgia 12/12/[address] [facility] MED & PEDS [address] [place], [place] [phone] Anthony Ruiz ANP Cervicalgia 12/10/[address] [facility] MEDICINE [address] [place] [address] Anthony Ruiz ANP Type 2 diabetes mellitus with hyperlipidemia (HCC) 12/09/[address] [facility] MEDICINE [address] [place] [address] Anthony Ruiz ANP Results 12/08/2024 Orders Only GENERIC EXTERNAL DATA DEPARTMENT Provider, Generic External Data 12/07/[address] [facility] WALK-IN CENTER [address] [place] [address] Anthony Ruiz ANP 12/03/2024 10:20 AM EDT Office Visit [facility] WALK-IN CENTER [address] [place] [phone] Jess Coyne MD Acute bronchitis, unspecified organism (Primary Dx); Severe persistent asthma without complication (HCC) 12/02/2024 Refill [facility] MED & PEDS [address] [place] [address] Anthony Ruzi ANP Type 2 diabetes mellitus with diabetic neuropathy, with long-term current use of insulin ([facility]) 12/01/2024 Refill [facility] MED & PEDS [address] [place] [address] Debra Faye MD Chronic bilateral low back pain, unspecified whether sciatica present 11/24/[address] [facility] MEDICINE [address] [place] [address] Anthony Ruiz ANP Essential hypertension; Severe persistent asthma without complication (HCC) 11/23/2024 Orders Only [facility] MEDICINE [address] [place] [phone] Anthony Ruiz ANP 11/19/[address] [facility] WALK-IN CENTER [address] [place] [address] Chava Presley MD 11/16/[address] [facility] CHC MED & PEDS [address] [place] [address] Anthony Ruiz ANP Type 2 diabetes mellitus with diabetic neuropathy, with long-term current use of insulin ([facility]/HCC) 11/15/2024 Travel 11/14/2024 Refill [facility] MED & PEDS [address] [place] [address] Anthony Ruiz ANP Cervicalgia 11/12/[address] [facility] MEDICINE [address] [place] [address] Anthony Ruiz ANP Neck pain 11/11/[address] [facility] ADULT DENTAL [address] [place] [address] Patricia YogeshJOHN 11/10/2024 3:30 PM EDT Immunization [facility] MEDICINE [address] [place] [address] Yohana Quinn RN Encounter for immunization 11/10/2024 Travel 11/09/2024 9:00 AM EDT Office Visit [facility] WALK-IN CENTER [address] [place] [address] Chava Presley MD Type 2 diabetes mellitus with hyperlipidemia (CMS/HCC) (Primary Dx) 11/09/2024 Telephone [facility] MED & PEDS [address] [place] [address] Azeb Hall RN 11/09/2024 Travel 11/08/[address] [facility] MEDICINE [address] [place] [phone] Anthony Ruiz ANP Nurse Triage 11/05/2024 2:30 PM EDT Office Visit [address] [address] Hallie Tapia MD Boils (Primary Dx) 11/05/2024 Travel 11/03/[address] [facility] MEDICINE [address] [place] [address] Anthony Ruiz ANP Results 11/01/2024 2:45 PM EDT Office Visit [address] [address] Reta Sue MD Vaginal bleeding (Primary Dx); Dietary counseling; Exercise counseling; Class 2 obesity without serious comorbidity with body mass index (BMI) of 35.0 to 35.9 in adult, unspecified obesity type; Vulvar itching; Constipation, unspecified constipation type; Hemorrhoids, unspecified hemorrhoid type 11/01/2024 Travel 10/29/2024 Refill [facility] MED [facility] PEDS [address] [place] [address] Anthony Ruiz ANP Neck pain 10/26/2024 Results Follow-Up [facility] MEDICINE [address] [place] [address] Anthony Ruiz ANP Thyroid Peroxidase Antibodies, Cardiolipin Antibodies (IgA,IgG,IgM) 10/25/[address] [facility] MEDICINE [address] [place] [address] Anthony Ruiz ANP 10/23/[address] [facility] MEDICINE [address] [place] [address] Anthony Ruiz ANP 10/22/2024 Orders Only GENERIC EXTERNAL DATA DEPARTMENT Provider, Generic External Data 10/20/2024 Results Follow-Up [address] [address] Anthony Ruiz ANP Prothrombin Time-INR, C-reactive Protein, Amylase, Additional followed-up results: 7 10/19/2024 Refill [facility] MED [facility] PED[facility] [address] [place] [address] Anthony Ruiz ANP Cervicalgia 10/14/2024 1:30 PM EDT Office Visit [facility] MEDICINE [address] [place] [address] Anthony Ruiz ANP Type 2 diabetes mellitus with hyperlipidemia (CMS/HCC) (CMS/HCC) (Primary Dx); Chronic pain of both knees; Chronic SI joint pain; Primary osteoarthritis of both knees; Essential hypertension; Long-term current use of opiate analgesic; OKEEFE (nonalcoholic steatohepatitis); Asthma-COPD overlap syndrome (CMS/HCC) 10/14/2024 Travel 10/13/2024 10:40 AM EDT Office Visit [facility] WALK-IN CENTER [address] [place] [address] Chava Presley MD Essential hypertension (Primary Dx) 10/13/2024 Travel 10/12/2024 Orders Only GENERIC EXTERNAL DATA DEPARTMENT Provider, Generic External Data 10/09/[address] [facility] MEDICINE [address] [place] [address] Anthony Ruiz ANP Severe persistent asthma without complication 10/06/2024 Travel 10/04/2024 Refill [facility] MED & PEDS [address] [place] [address] Zakia Uriostegui NP Type 2 diabetes mellitus with hyperglycemia ([facility]) 10/01/2024 11:00 AM EDT Clinical Support [facility] MEDICINE [address] [place] [address] Azeb Hall RN Neck pain 10/01/[address] [facility] CHC MED & PEDS [address] [place] [address] Azeb Hall RN 10/01/2024 Travel 09/30/[address] [facility] MEDICINE [address] [place] [address] Anthony Ruiz ANP Referral 09/30/[address] [facility] [address] [place] [address] Anthony Ruiz ANP Referral 09/30/[address] [address] Anthony Ruiz ANP Chronic SI joint pain 09/28/2024 Orders Only [address] [address] Anthony Ruiz ANP from Last 3 Months Immunizations Immunization Administration [...] 12/27/2024 11:00 AM EST Medication Management [address] [address] Yuri Pierre, PharmD [address] [place] [address] 01/07/2025 9:30 AM EST Clinical Support [address] [address] Azeb Hall, RN [address] [place] [address] 01/11/2025 1:00 PM EST Office Visit [address] [address] Anthony Ruiz, KAYLEE [address] [place] [address] 02/03/2025 11:00 AM EST Medication Management [address] [address] Yuri Pierre, PharmD [address] [place] [address] Health Maintenance Due Date Last Done Comments [...] 12/16/2024 Dental X-Ray: Full Mouth 09/12/2026 09/12/2023, 2 [...] Pressure 125/85(2024 12:36 PM EDT) No Phanis-Gambl e, Aida, PharmD Record Your Blood Sugar As Directed General No Phanis-Gambl e, Aida, PharmD Hemoglobin A1c < 7 Result Component 6.6( 1:54 PM EDT) No Phanis-Gambl e, Aida, PharmD Procedures Procedure Name Priority Date/Time [...] WITH REFLEX Routine 10/22/2024 10:49 AM EDT HNHA-6-JUXPCYRVXUFA I ANTIBODIES (IGG, IGA, IGM) Routine 10/22/2024 10:49 AM EDT ACTIN (SMOOTH MUSCLE) ANTIBODY (IGG) Routine 10/22/2024 10:49 AM EDT CARDIOLIPIN AB (IGA,IGG,IGM) Routine 10/22/2024 10:49 AM EDT THYROID PEROXIDASE ANTIBODIES Routine 10/22/2024 10:49 AM EDT POCT GLYCATED HEMOGLOBIN, TOTAL Routine 10/14/2024 1:54 PM EDT Type 2 diabetes mellitus with hyperlipidemia (CMS/HCC) ([facility]/HCC) POCT GLUCOSE Routine 10/14/2024 1:52 PM [...] ANTIBODY ([place] DPH) Routine 08/06/2024 HIV ANTIBODY/ANTIGEN ([place] DP) Routine 08/06/2024 PROPHYLAXIS - ADULT Routine 08/04/2024 [...] AM EDT Narrative 12/18/2024 9:03 AM EDT [address] [address] [address] Scan Report Signed Patient: AvinashNuvia Carrasco MR #: [id number] : 1960 Acct:[id number] Age/Sex: 64 / F ADM Date: 12/18/24 Loc: HO.ED Attending Dr: Ordering Physician: Kourtney Jones MD Date of Service: 12/18/24 Procedure(s): CT abdomen pelvis w IV con Accession Number(s): [id number] cc: Kourtney Jones MD; ANTHONY RUIZ NP Report Number: [id number]: Total DLP = 609.00 mGy-cm Reason for [...] in OV> 12/18/24901 DD/ 1 TD/TT: 12/18/24901 Advisory Application Developer: Procedure Note Donotuseinterpreter, Image - 12/18/[address] [address] [address] Scan Report Signed Patient: Nuvia Fay EMR #: [id number] : 1960cct:[id number] Age/Sex: 64 / FADM Date: 12/18/24 Loc: HO.ED Attending Dr: Ordering Physician: Kourtney Jones MD Date of Service: 12/18/24 Procedure(s): CT abdomen pelvis w IV con Accession Number(s): [id number] cc: Kourtney Jones MD; ANTHONY RUIZ NP Report Number: [id number]: Total DLP = 609.00 mGy-cm Reason for [...] in OV> 12/18/24901 DD/ 1 TD/TT: 12/18/24901 Advisory Application Developer: [facility] External Provider IMG CT PROCEDURES Edited Result - Final * (ABNORMAL) Urinalysis, Complete, with Reflex to Culture (12/18/2024 8:21 AM EDT) Color Urine Yellow [facility] Appearance Urine Clear [facility] PH 7.0 5.0 - 9.0 [facility] Glucose Urine UA Negative Negative mg/dL [facility] Urine Blood Negative Negative [facility] Specific [place] - Urine 1.025 1.005 - 1.025 [facility] Urine Protein Negative Neg-Trace mg/dL [facility] Urine Ketones Negative Negative mg/dL [facility] Nitrite Urine Negative Negative [facility] Leukocyte Esterase Urine Small (1+)(A) Negative [facility] RBC Urine 0-2 0 - 2 /HPF [facility] Urine WBC 0-5 0 - 5 /HPF [facility] Urine Squamous Epithelial Cell 0-2 0 - 2 /HPF [facility] Urine Bacteria None Seen None Seen [facility] Hyaline Casts, Urine 0-2 0 - 2 /LPF [facility] 12/18/2024 8:21 AM EDT 12/18/2024 8:26 AM EDT Narrative [facility] - 12/18/2024 8:45 AM EDT [id number], Clean Catch us Generic External Data Provider LAB URINE ORDERAB LES Final Result Performing Organization Address City/State/[facility] Co de Phone Number [facility] [address] [place] [address] [phone] * XR Chest 1 View (12/18/2024 7:39 AM EDT) Anatomical Region Laterality Modality Chest Radiographic Griselda ging 12/18/2024 7:39 AM EDT Narrative 12/18/2024 7:42 AM EDT [address] [address] XRay Report Signed Patient: Nuvia Fay MR #: [id number] : 1960 Acct:[id number] Age/Sex: 64 / F ADM Date: 12/18/24 Loc: .ED Attending Dr: Ordering Physician: Kourtney Jones MD Date of Service: 12/18/24 Procedure(s): XR chest 1V Accession Number(s): [id number] cc: Kourtney Jones MD; ANTHONY RUIZ NP [...] signed by Whitney Price MD in OV> 12/18/24740 DD/ 8 TD/TT: 12/18/24738 Advisory Application Developer: Procedure Note Donotuseinterpreter, Image - 12/18/[address] [address] XRay Report Signed Patient: Nuvia Fay EMR #: [id number] : 1960cct:[id number] Age/Sex: 64 / FADM Date: 12/18/24 Loc: .ED Attending Dr: Ordering Physician: Kourtney Jones MD Date of Service: 12/18/24 Procedure(s): XR chest 1V Accession Number(s): [id number] cc: Kourtney Jones MD; ANTHONY RUIZ NP [...] signed by Whitney Price MD in OV> 12/18/24740 DD/ 8 TD/TT: 12/18/24738 Advisory Application Developer: [facility] External Provider IMG XR PROCEDURES Edited Result - Final * Culture, Urine, Routine (12/18/2024 12:00 AM EDT) Urine Urine specimen obtained by clean catch procedure / Unknown 12/18/2024 12/18/2024 Comment:UACC Narrative [facility] - 12/19/2024 12:44 PM EST Urine Culture Report Result Urine Culture 10,000 to 50,000 cfu/ml Urine Culture Mixed bacterial yady characteristic of Urine Culture urogenital contamination. Specimen Source: Urine clean catch us Generic External Data Provider LAB MICROBIOLOGY - GENERAL ORDERABLES Final Result [facility] [address] [place] [phone] * POCT Glucose (12/16/2024 2:44 PM EDT) Only the most recent of3 resultswithin the time period is included. Glucose Blood, POC 78 60 - 200 mg/dL QC Media Lot # [id number] Lot# Expiration Date Blood Capillary blood specimen / Unknown 12/16/2024 2:44 PM EDT us Samantha José DO POINT OF CARE TEST ENTER/CHRISTINA T ORDERABLES Final Result * US Abdomen Complete (12/15/2024 9:44 PM EDT) Anatomical Region Laterality Modality Abdomen Ultrasound 12/15/2024 9:44 PM EDT Narrative 12/15/2024 9:46 PM EDT [address] [address] Ultrasound Report Signed Patient: Nuvia Fay MR #: [id number] : 1960 Acct:[id number] Age/Sex: 64 / F ADM Date: 12/15/24 Loc: HO.US Attending Dr: Umm PERALTA Ordering Physician: Umm Ellsworth Date of Service: 12/15/24 Procedure(s): US abdomen complete Accession Number(s): [id number] cc: Umm Ellsworth; ANTHONY RUIZ NP Reason [...] in OV> 12/15/242144 DD/ 43 TD/TT: 12/15/242143 Advisory Application Developer: Procedure Note Donotuseinterpreter, Image - 12/15/2024 [place] [address] Ultrasound Report Signed Patient: Nuvia Fay EMR #: [id number] : 1960cct:[id number] Age/Sex: 64 / FADM Date: 12/15/24 Loc: HO.US Attending Dr: Umm PERALTA Ordering Physician: Umm Ellsworth Date of Service: 12/15/24 Procedure(s): US abdomen complete Accession Number(s): [id number] cc: Umm Ellsworth; ANTHONY RUIZ NP Reason [...] in OV> 12/15/242144 DD/ 43 TD/TT: 12/15/242143 Advisory Application Developer: us [facility] External Provider IMG US PROCEDURES Edited Result - Final * XR Chest 2 Views (12/08/2024 2:21 PM EDT) Anatomical Region Laterality Modality Chest Radiographic Griselda ging 12/08/2024 2:21 PM EDT Narrative 12/08/2024 2:34 PM EDT [place] [address] XRay Report Signed Patient: Nuvia Fay MR #: [id number] : 1960 Acct:[id number] Age/Sex: 64 / F ADM Date: 12/08/24 Loc: HO.ED Attending Dr: Ordering Physician: Rosangela Ventura Date of Service: 12/08/24 Procedure(s): XR chest 2V Accession Number(s): [id number] cc: Rosangela Ventura; ANTHONY RUIZ NP Reason [...] Eldridge MD in OV> 12/08/24 1431 DD/ 142 TD/TT: 12/08/241427 Advisory Application Developer: Procedure Note Donotuseinterpreter, Image - 12/08/[address] [address] XRay Report Signed Patient: Nuvia Fay EMR #: [id number] : [id number]:[id number] Age/Sex: 64 / FADM Date: 12/08/24 Loc: .ED Attending Dr: Ordering Physician: Rosangela Ventura Date of Service: 12/08/24 Procedure(s): XR chest 2V Accession Number(s): [id number] cc: Rosangela Ventura; ANTHONY RUIZ NP Reason [...] 12/08/24 1431 DD/ 1421 TD/TT: 12/08/24 1428 Advisory Application Developer: [facility] External Provider IMG XR PROCEDURES Final Result * Influenza A B2 ID NOW (Bailey) (12/08/2024 2:09 PM EDT) IDNOW SERIAL# [id number] [facility] Influenza A Negative Negative [facility] Influenza B2 Negative Negative [facility] Influenza A B2 Note See Note [facility] Comment:The Bailey ID NOW In [...] LAB MICROBIOLOGY - GENERAL ORDERABLES Final Result [facility] [address] [place] [phone] * COVID-19 ID NOW (BAILEY) (12/08/2024 2:09 PM EDT) IDNOW SERIAL# [id number] [facility] COVID-19 TEST Negative Negative [facility] COVID-19 NOTE See Note [facility] Comment: Results are for the identification of SARS-CoV2 RNA. TheSARS-CoV2 RNA is generally detectable in respiratory samplesduring the acute phase of infection. Positive results areindicative of the presence of SARS-CoV-2 RNA; clinicalcorrelation with patient history and other diagnosticinformation is necessary to determine patient infectionstatus. Positive results do not rule out bacterial infectionor co- infection with other viruses.Testing facilities within the [facility] and itsterritories are required to report all [...] use by authorized laboratories.Testing performed on the VANDOLAY ID NOW utilizing NAAT. 12/08/2024 2:09 PM EDT 12/08/2024 2:13 PM EDT Generic External Data Provider LAB MOLECULAR LILIAM GNOSTICS ORDERABLES Final Result Performing Organization Address [facility] Co de Phone Number [facility] [address] [place] [address] [phone] * High Sensitivity Troponin I (12/08/2024 2:09 PM EDT) [facility] TROPONIN I HIGH SENSITIVITY <2.7 <3.5 - 17.0 ng/L [facility] Comment:The Bailey high sens itivity Troponin-I results should beused in conjunction with other diagnostic information suchas ECG, clinical observations and information, and patientsymptoms to aid in the diagnosis of [place]. 12/08/2024 2:09 PM EDT 12/08/2024 2:13 PM EDT Generic External Data Provider LAB BLOOD ORDERAB LES Final Result Performing Organization Address [facility] Co de Phone Number [facility] [address] [place] [phone] * (ABNORMAL) CBC auto differential (12/08/2024 2:09 PM EDT) [facility] White Blood Count 7.6 4.8 - 10.8 X10*3/uL [facility] Red Blood Count 4.67 4.20 - 5.50 X10*6/uL [facility] Hemoglobin 14.7 12.0 - 16.0 g/dl [facility] Hematocrit 44.2 37.0 - 47.0 % [facility] Mean Corpuscular Volume 94.6 80.0 - 98.0 fL [facility] Mean Corpuscular Hemoglobin 31.5 27.0 - 33.0 pg [facility] Mean Corpuscular HGB Conc 33.3 31.0 - 35.0 g/dl [facility] Red Cell Distribution Width 12.9 11.0 - 16.0 % [facility] Platelet Count 268 160 - 400 X10*3/uL [facility] Mean Platelet Volume 9.2(L) 9.4 - 12.3 fL [facility] Neutrophils Percent Auto 82.1(H) 45 - 73 % [facility] Imm Gran Pct Auto 0.3 0.0 - 0.4 % [facility] Lymphocytes Percent Auto 16.1(L) 20 - 40 % [facility] Monocytes Percent Auto 0.8(L) 2 - 11 % [facility] Eosinophils Percent Auto 0.3 0 - 4 % [facility] Basophils Percent Auto 0.4 0 - 2 % [facility] NRBC Pct Auto 0.0 0.0 - 0.2 /100WBC [facility] Neutrophils Absolute Auto 6.2 2.0 - 8.3 x10*3/uL [facility] Imm Gran Abs Auto 0.02 0.00 - 0.03 X10*3/uL [facility] Lymphocytes Absolute Auto 1.2 1.2 - 4.9 X10*3/uL [facility] Monocytes Absolute Auto 0.1 0.1 - 1.2 X10*3/uL [facility] Eosinophils Absolute Auto 0.0 0.0 - 0.4 X10*3/uL [facility] Basophils Absolute Auto 0.0 0.0 - 0.2 X10*3/uL [facility] NRBC Abs Auto 0.000 0.0 - 0.012 X10*3/uL [facility] 12/08/2024 2:09 PM EDT 12/08/2024 2:13 PM EDT Generic External Data Provider LAB BLOOD ORDERAB LES Final Result Performing Organization Address City/[facility]/ZIP Co de Phone Number [facility] [address] [place] [phone] * Magnesium (12/08/2024 2:09 PM EDT) Magnesium 2.1 1.6 - 2.6 mg/dL [facility] 12/08/2024 2:09 PM EDT 12/08/2024 2:13 PM EDT Generic External Data Provider LAB BLOOD ORDERAB LES Final Result Performing Organization Address [facility] de Phone Number [facility] [address] [place] [phone] * (ABNORMAL) Comprehensive Metabolic Panel (12/08/2024 2:09 PM EDT) Pathologist [facility] Sodium 141 135 - 145 mmol/L [facility] Potassium 3.7 3.3 - 5.1 mmol/L [facility] Chloride 109(H) 96 - 108 mmol/L [facility] Carbon Dioxide 25 22 - 29 mmol/L [facility] Anion Gap 11(L) 12 - 20 [facility] Urea Nitrogen (BUN) 13 9 - 16 mg/dL [facility] Creatinine, Serum 0.90 0.5 - 1.4 mg/dL [facility] Creatinine Clr Calc Pharmacy 64.2 [facility] Comment:Provided height and weight: 152.4 cm,92.896 kg.eGFR (calculated from the MDRD study equation) and eCrCl(calculated from the Cockcroft-Gault equation) are based ondifferent parameters and may not yield comparable results.If eCrCl result is absurd, please check patient'sheight/weight. Estimated Glomerular Filt Rate >60 [facility] Comment:Chronic Kidney Disea se: Estimated GFR < 60 mL/min/1.18p1Mfmgel Kidney Disease: Estimated GFR < 15 mL/min/1.73m2 Glucose 214(H) 60 - 115 mg/dL [facility] Calcium 9.8 8.4 - 10.2 mg/dL [facility] Bilirubin, Total 0.3 0.0 - 1.0 mg/dL [facility] Aspartate Amino Transferase 28 5 - 31 U/L [facility] Alanine Aminotransferase 16 0 - 31 U/L [facility] Total Protein 7.4 6.5 - 8.0 g/dL [facility] Albumin Level 4.2 3.5 - 5.0 g/dL [facility] Alkaline Phosphatase 101 39 - 117 U/L [facility] 12/08/2024 2:09 PM EDT 12/08/2024 2:13 PM EDT us Generic External Data Provider LAB BLOOD ORDERAB LES Final Result [facility] [address] [place] [phone] * Bacterial Vaginosis Panel (11/01/2024 12:00 AM EDT) TRICHOMONAS VAGINALIS DETECTION BY PCR NOT DETECTED Not Detect [facility] BACTERIAL VAGINOSIS DETECTION BY PCR NEGATIVE Negative [facility] Comment:The BV organism targ ets [...] DETECTION BY PCR NOT DETECTED Not Detect [facility] Eufemia glab krusei PCR NOT DETECTED Not Detect [facility] Swab Vaginal structure / Unknown 11/01/2024 11/01/2024 us Reta Sue MD LAB MICROBIOLOGY - GENERAL ORD ERABLES Final Result [facility] [address] [place] [phone] * Bljd-0-Spdvxchcrvng I Antibodies (IgG, IgA, IgM) (10/22/2024 10:49 AM EDT) B2 Glycoprotein I IgG Antibody <2.0 <20.0 U/mL [facility] Comment:Value Interpretation ----- < 20.0 Antibody not detected> or = 20.0 Antibody detected B2 Glycoprotein I IgM Antibody <2.0 <20.0 U/mL [facility] Comment:Value Interpretation ----- < 20.0 Antibody not detected> or = 20.0 Antibody detected B2 Glycoprotein I IgA Antibody <2.0 <20.0 U/mL [facility] Comment: Value Interpretation----- < 20.0 Antibody not detected> or = 20.0 Antibody detectedThe antiphospholipid antibody syndrome (APS) is aclinical- pathologic correlation that includes aclinical event (e.g. arterial or venous thrombosis, morbidity) and persistent positiveantiphospholipid antibodies (IgM, IgG Cardiolipin tbt2CYP antibodies greater than the 99th percentile;or a [...] therapy or aging.For additional information, please refer tohttp://education.Revver/faq/DVX103(This link is being provided for informational/educational purposes only.)THIS TEST WAS PERFORMED AT:[id number] [place] [address]AGVXYQNDEAN CASAS MD,PHD 10/22/2024 10:4 9 AM EDT 10/22/2024 10:49 AM EDT us Generic External Data Provider LAB BLOOD ORDERAB LES Final Result Performing Organization Address City/[facility]/ZIP Co de Phone Number [facility] [address] [place] [phone] * (ABNORMAL) Thyroid Peroxidase Antibodies (10/22/2024 10:49 AM EDT) Thyroid Peroxidase Antibodies >900(A) <9 IU/mL [facility] Comment:THIS TEST WAS PERFOR MED AT:[employer] [address] [address]URNJPHERNAN WARREN MD 10/22/2024 10:4 9 AM EDT 10/22/2024 10:49 AM EDT Generic External Data Provider LAB BLOOD ORDERAB LES Final Result Performing Organization Address [facility] Co de Phone Number [facility] [address] [place] [phone] * (ABNORMAL) Actin (Smooth Muscle) Antibody (IgG) (10/22/2024 10:49 AM EDT) Only the most recent of2 resultswithin the time period is included. Smooth Muscle Antibody 47(A) <20 U [facility] Comment:Reference Range: <20 U: Negative>or=20 [...] with AIH type 1.THIS TEST WAS PERFORMED AT:[employer] [id number] [place] [address]SLYJIYBDEAN CASAS MD,PHD 10/22/2024 10:4 9 AM EDT 10/22/2024 10:49 AM EDT us Generic External Data Provider LAB BLOOD ORDERAB LES Final Result Performing Organization Address [facility] de Phone Number [facility] [address] [place] [phone] * Lupus Anticoagulant Evaluation with Reflex (10/22/2024 10:49 AM EDT) Lupus Interpretation see note [facility] Comment:A Lupus Anticoagulan t is not detected.Reference Range: Not DetectedFor additional information, please refer [email or web address]~[email or web address].Revver/faq/EWC79o9(This link is being provided for informational/educational purposes only.)This interpretation is based on the following testresults. PTT (LAC) Screen 33 <=40 sec [facility] DRVVT Screen 35 <=45 sec [facility] Comment:THIS TEST WAS PERFOR MED AT:[employer]/[address] [id number] [place] [address]LKGAKDBDEAN CASAS MD,PHD dRVVT Confirmation [facility] dRVVT 1:1 Mix [facility] DRVVT 1:1 Mix Interpretation [facility] Hexagonal Phase Neutralization [facility] Thrombin Clotting Time [facility] 10/22/2024 10:4 9 AM EDT 10/22/2024 10:49 AM EDT us Generic External Data Provider LAB BLOOD ORDERAB LES Final Result Performing Organization Address [facility] Co de Phone Number [facility] [address] [place] [phone] * Cardiolipin Antibodies (IgA,IgG,IgM) (10/22/2024 10:49 AM EDT) Cardiolipin Antibody (IgG) <2.0 GPL-U/mL [facility] Comment:Value Interpretation ----- < 20.0 Antibody not detected> or = 20.0 Antibody detected Cardiolipin Antibody (IgM) <2.0 MPL-U/mL [facility] Comment: Value Interpretation----- < 20.0 Antibody not detected> or = 20.0 Antibody detectedThe antiphospholipid antibody syndrome (APS) is aclinical- pathologic correlation that includes aclinical event (e.g. arterial or venous thrombosis, morbidity) and persistent positiveantiphospholipid antibodies (IgM, IgG Cardiolipin kun9PEN antibodies greater than the 99th percentile; ora [...] therapy or aging.For additional information, please refer tohttp://education.Revver/faq/KNZ041(This link is being provided for informational/educational purposes only.)THIS TEST WAS PERFORMED AT:[employer] [place] [address]PIUVVHERNAN WARREN MD 10/22/2024 10:4 9 AM EDT 10/22/2024 10:49 AM EDT us Generic External Data Provider LAB BLOOD ORDERAB LES Final Result [facility] [address] [place] [phone] * (ABNORMAL) POCT HGB A1C (10/14/2024 1:54 PM EDT) Hemoglobin A1C 6.6(A) 4.0 - 5.7 % QC Media Lot # [id number] Lot# Expiration Date ,[id number] Blood 10/14/2024 1:54 PM EDT us Anthony Ruiz ANP POINT OF CARE TEST ENTER/EDIT OR DERABLES Final Result * (ABNORMAL) TSH with Reflex to Free T4 (10/12/2024 2:10 PM EDT) TSH reflex Free T4 6.80(H) 0.32 - 4.0 uIU/mL [facility] 10/12/2024 2:10 PM EDT 10/12/2024 2:10 PM EDT Generic External Data Provider LAB BLOOD ORDERAB LES Final Result Performing Organization Address [facility] de Phone Number [facility] [address] [place] [address] [phone] * Prothrombin Time-INR (10/12/2024 2:10 PM EDT) Prothrombin Time 10.9 10.9 - 12.4 SEC [facility] INTERNATIONAL NORM RATIO 1.0 0.9 - 1.1 [facility] Comment:INTERNATIONAL NORMAL IZED RATIO (INR) [...] ORDERAB LES Final Result Performing Organization Address [facility] de Phone Number [facility] [address] [place] [phone] * C-reactive Protein (10/12/2024 2:10 PM EDT) C Reactive Protein 0.31 < or = 0.50 mg/dL [facility] 10/12/2024 2:10 PM EDT 10/12/2024 2:10 PM EDT us Generic External Data Provider LAB BLOOD ORDERAB LES Final Result [facility] [address] [place] [phone] * (ABNORMAL) REX Screen,IFA, with Reflex to Titer and Pattern (10/12/2024 2:10 PM EDT) Anti Nuclear Antibody Screen POSITIV E(A) NEGATIVE [facility] Comment:REX IFA is a first l ine screen for detecting thepresence of up to approximately 150 autoantibodies invarious autoimmune diseases. A positive REX IFA resultis suggestive of autoimmune disease and reflexes totiter and pattern. Further laboratory testing may beconsidered if clinically indicated.For additional information, please refer tohttp://education.[employer]/faq/YQF015(This link is being provided for informational/educational purposes only.)THIS TEST WAS PERFORMED AT:[employer] [place] [phone] WARREN MD REX Titer 1:1280( A) titer [facility] Comment:Reference Range <1:4 0 Negative 1:40-1:80 Low Antibody Level >1:80 Elevated Antibody Level REX Pattern Nuclear , Homogen eous(A) [facility] Comment:Homogeneous pattern is associated with systemic lupuserythematosus (SLE), drug-induced lupus and juvenileidiopathic arthritis.AC-1: HomogeneousInternational Consensus on REX Patterns(https://doi.org/10.1515/spwi-2960-4055)THIS TEST WAS PERFORMED AT:[employer] [place] [phone] WARREN MD REX Titer 2 TNP [facility] REX Pattern 2 TNP [facility] REX TITER 3 TNP [facility] REX PATTERN 3 [facility] 10/12/2024 2:10 PM EDT 10/12/2024 2:10 PM EDT us Generic External Data Provider LAB BLOOD ORDERAB LES Final Result Performing Organization Address City/[facility]/ZIP Co de Phone Number [facility] [address] [place] [phone] * T4, Free (10/12/2024 2:10 PM EDT) Pathologist [facility] Free T4 (Free Thyroxine) 0.99 0.71 - 1.85 ng/dL [facility] 10/12/2024 2:10 PM EDT 10/12/2024 2:10 PM EDT Generic External Data Provider LAB BLOOD ORDERAB LES Final Result Performing Organization Address [facility] Co de Phone Number [facility] [address] [place] [phone] * Lipase (10/12/2024 2:10 PM EDT) Pathologist [facility] Lipase 20 8 - 78 U/L [facility] 10/12/2024 2:10 PM EDT 10/12/2024 2:10 PM EDT Generic External Data Provider LAB BLOOD ORDERAB LES Final Result Performing Organization Address [facility] Co de Phone Number [facility] [address] [place] [phone] * (ABNORMAL) Hemoglobin A1c (10/12/2024 2:10 PM EDT) Pathologist [facility] Hemoglobin A1c 6.5(H) <6.0 % [facility] Comment:Hemoglobin A1C Refer ence Range Adults: 4.8 - 6.0 % Non diabetic: < 6.0 % Goal: < 7.0 %Additional Action Suggested: > 8.0 %Note: Hemoglobin A1c results are invalid for patients with abnormal amounts of HbF. Blood transfusions may impact the HbA1c concentration in the patient sample. Estimated Average Glucose 140 mg/dL [facility] Comment:eAG = Estimated ave rage glucose which is %A1C expressed asaverage glucose, using the formula of the B6G-HdzzmbcTrquzkq Glucose study (ADAG), Diabetes Care, Vol.31,#8,Sep. 2007 10/12/2024 2:10 PM EDT 10/12/2024 2:10 PM EDT us Generic External Data Provider LAB BLOOD ORDERAB LES Final Result Performing Organization Address [facility] Co de Phone Number [facility] [address] [place] [address] [phone] * Ferritin (10/12/2024 2:10 PM EDT) Ferritin 69 10 - 250 ng/mL [facility] 10/12/2024 2:10 PM EDT 10/12/2024 2:10 PM EDT us Generic External Data Provider LAB BLOOD ORDERAB LES Final Result Performing Organization Address [facility] Co de Phone Number [facility] [address] [place] [address] [phone] * Amylase (10/12/2024 2:10 PM EDT) Amylase 36 28 - 100 U/L [facility] 10/12/2024 2:10 PM EDT 10/12/2024 2:10 PM EDT us Generic External Data Provider LAB BLOOD ORDERAB LES Final Result Performing Organization Address [facility] Co de Phone Number [facility] [address] [place] [phone] * CT Lung Screening Low dose (10/09/2024 1:18 PM EDT) Anatomical Region Laterality Modality Lung Computed Tomogra phy 10/09/2024 1:18 PM EDT Narrative 10/09/2024 1:20 PM EDT [address] [address] [address] Scan Report Signed Patient: Nuvia Fay MR #: [id number] : 1960 Acct:[id number] Age/Sex: 64 / F ADM Date: 10/08/24 Loc: HO.CT Attending Dr: Ron Preciado MD Ordering Physician: Ron Preciado MD Date of Service: 10/08/24 Procedure(s): CT lung screening Accession Number(s): [id number] cc: Ron Preciado MD; ANTHONY RUIZ NP Report Number: [id number]: Total DLP = 64.00 mGy-cm CLINICAL HISTORY: [...] 10/09/24 1319 DD/ 1318 TD/TT: 10/09/24 1318 Advisory Application Developer: Procedure Note Donotuseinterpreter, Image - 10/09/[address] [place] [address] [address] Scan Report Signed Patient: Nuvia Fay EMR #: [id number] : 1960cct:[id number] Age/Sex: 64 / FADM Date: 10/08/24 Loc: HO.CT Attending Dr: Ron Preciado MD Ordering Physician: Ron Preciado MD Date of Service: 10/08/24 Procedure(s): CT lung screening Accession Number(s): [id number] cc: Ron Preciado MD; ANTHONY RUIZ NP Report Number: [id number]: Total DLP = 64.00 mGy-cm CLINICAL HISTORY: [...] 10/09/24 1319 DD/ 1318 TD/TT: 10/09/24 1318 Advisory Application Developer: [facility] External Provider IMG CT [...] - 10/01/2024 10:43 AM EDT .UTOX cup Lot#[id number] Exp. 11/23/25 Internal Pass Control [facility] POINT OF CARE TEST ENTER/EDIT OR DERABLES Final Result * Hepatitis C Antibody ([facility]) (08/06/2024) Pathologist [facility] Hepatitis C Ab Nonreactive Blood 08/06/2024 Result [facility] Provider MD LAB BLOOD ORDERABLES Kelsey l Result * HIV Ab/Ag ([facility]) (08/06/2024) Pathologist [facility] HIV Ag/Ab Nonreactive Blood 08/06/2024 Result [facility] Provider MD LAB BLOOD ORDERABLES Kelsey l Result * (ABNORMAL) Lipid Panel, Standard (06/18/2024 10:18 AM EDT) Pathologist [facility] Triglycerides 122 <150 mg/dL [facility] Comment:Desirable Triglyceri de: less than 150 mg/dLBorderline High Triglyceride 150-199 mg/dLHigh Triglyceride: 200-499 mg/dLVery High Triglyceride: greater than or equal to 5OO mg/dL Cholesterol 216(H) <200 mg/dL [facility] Comment:Desirable Cholestero l: less than 200 mg/dLBorderline High Cholesterol: 200-239 mg/dLHigh Cholesterol: greater than 239 mg/dL LDL Cholesterol Calculated 128(H) <100 mg/dL [facility] Comment:Desirable LDL: less than 100 mg/dLNear Optimal/Above Optimal LDL: 110- 129 mg/dLBorderline High LDL: 130-159 mg/dLHigh LDL: 160-189 mg/dLVery High LDL: greater than or equal to 190 mg/dL HDL Cholesterol 64 >40 mg/dL [facility] Comment:Desirable HDL: great er than 40 mg/dL Note: This HDL assay may give artificially low results in patients with liver disease. Blood Venous blood specimen / Unknown 06/18/2024 10:18 AM EDT 06/18/2024 11:08 AM EDT Anthony Ruiz ANP LAB BLOOD ORDERABLES Final Resul t [facility] [address] [place] [phone] * BI Mammogram Screening Tomosynthesis Bilateral (04/12/2024 1:48 PM EST) Anatomical Region Laterality Modality Breast Bilateral Mammography 04/12/2024 1:48 PM EST Narrative 04/17/2024 12:38 PM EST [address] [place] [address] Mammography Report Signed Patient: Nuvia Fay MR #: [id number] : 1960 Acct:[id number] Age/Sex: 63 / F ADM Date: 04/12/24 Loc: HO.MAMMO Attending Dr: Monica Lozano CNM Ordering Physician: Monica Lozano CNM Results: 2Beni gn Findings Date of Service: 04/12/24 Follow Up: 1 Year From [facility] ina Mammogram Procedure(s): MM tomosynthesis screening BI Accession Number(s): [id number] cc: Monica Lozano CNM; ANTHONY RUIZ NP [...] 04/17/24 1235 DD/ 1348 TD/TT: 04/12/24 1405 Advisory Application Developer: Procedure Note Donotuseinterpreter, Image - 04/17/2024 Radha [facility] [address] [place], [place] [address]
--- OUTSIDE RECORDS SUMMARY | 2024-12-27 09:44 | XMS_ITS | Encounter Summary ---
Author Organization [employer] Address [address] [facility] 7t [place] [address] Care Team Providers Care Superintendent Horticulture Name Role Phone Anthony Ruiz Primary Care Provider [phone] Yuri Pierre PharmD Unavailable [phone] Basilio Hall MD Unavailable [phone] Ron Preciado MD Unavailable [phone] Encounter Details Date Type Department Care Team (Late st Contact Info) Description 09/28/2024 Orders Only [facility] MEDICINE [address] [place] [address] Anthony Ruiz ANP [address] [place] [address] Social History Tobacco Use Types Packs/Day Years [...] 12/27/2024 11:00 AM EST Medication Management [address] [address] Yrui Pierre, Dileep [address] [place] [address] 01/07/2025 9:30 AM EST Clinical Support [address] [address] Azeb Hall, MARTIN [address] [place] [address] 01/11/2025 1:00 PM EST Office Visit [address] [address] Anthony Ruiz ANP [address] [place] [address] 02/03/2025 11:00 AM EST Medication Management [address] [address] Yuri Pierre, PharmD [address] [place] [address] documented as of this encounter Goals Goal [...] PM EDT Narrative 10/09/2024 1:20 PM EDT [place] [address] [address] Scan Report Signed Patient: Nuvia Fay MR #: [id number] : [id number] Acct:[id number] Age/Sex: 64 / F ADM Date: 10/08/24 Loc: .CT Attending Dr: Ron Preciado MD Ordering Physician: Ron Preciado MD Date of Service: 10/08/24 Procedure(s): CT lung screening Accession Number(s): [id number] cc: Ron Preciado MD; ANTHONY RUIZ NP Report Number: [id number]: Total DLP = 64.00 mGy-cm CLINICAL HISTORY: [...] 10/09/24 1319 DD/ 1318 TD/TT: 10/09/24 1318 Ethanol Maintenance Mechanic: Procedure Note Donotuseinterpreter, Image - 10/09/[address] [address] [address] Scan Report Signed Patient: Nuvia Fay EMR #: [id number] : 1Acct:[id number] Age/Sex: 64 / FADM Date: 10/08/24 Loc: HO.CT Attending Dr: Ron Preciado MD Ordering Physician: Ron Preciado MD Date of Service: 10/08/24 Procedure(s): CT lung screening Accession Number(s): [id number] cc: Ron Preciado MD; ANTHONY RUIZ NP Report Number: [id number]: Total DLP = 64.00 mGy-cm CLINICAL HISTORY: [...] 10/09/24 1319 DD/ 1318 TD/TT: 10/09/24 1318 Ethanol Maintenance Mechanic: [facility] External Provider IMG CT PROCEDURES Edited Result - Final documented in this encounter Visit Diagnoses Not on filedocumented in this encounter Additional Health Concerns Assessment Noted Time PHQ-9 Depression Total Score: 12 024 2:58 PM EDT documented as of this encounter Care Teams Superintendent Horticulture Relationship Specialty Start Date End Date Anthony Ruiz, ANP [address] [place] [address] PCP - General Family Medicine 09/23/19 Yuri Pierre, MikeD [address] [place] [address] Pharmacist Internal Medicine 05/05/24 Basilio Hall MD [address] [place] [address] Cardiology 05/17/24 Ron Preciado MD [address] [place] [address] Pulmonary Disease 05/17/24 documented as of this encounter
--- OUTSIDE RECORDS SUMMARY | 2024-12-27 09:44 | XMS_ITS | Encounter Summary ---
Author Organization [employer] Address [address] [facility] 7t [place] [address] Care Team Providers Care Import/Export Administrator Name Role Phone Sariah Vickers Primary Care Provider [phone] Yuri Pierre PharmD Unavailable [phone] Basilio Hall MD Unavailable [phone] Ron Preciado MD Unavailable [phone] Reason for Visit * Reason Onset Date Comments Referral 05/17/2022 Encounter Details Date Type Department Care Team (Late st Contact Info) Description 05/17/2022 Telephone [facility] MEDICINE [address] [place] [address] Sariah Vickers ANP [address] [place] [address] Referral Social History Tobacco Use Types Packs/Day [...] guide to vertigo. Please contact pt at [phone] documented in this encounter Plan of Treatment Upcoming Encounters Date Type Department Care Team (Late st Contact Info) Description 12/27/2024 11:00 AM EST Medication Management [address] [address] Yuri Pierre PharmD [address] [place] [address] 01/07/2025 9:30 AM EST Clinical Support [address] [address] Azeb Hall, RN [address] [place] [address] 01/11/2025 1:00 PM EST Office Visit [address] [address] Sariah Vickers ANP [address] [place] [address] 02/03/2025 11:00 AM EST Medication Management [address] [address] Yuri Pierre, MikeD [address] [place] [address] documented as of this encounter Visit Diagnoses Not on filedocumented in this encounter Care Teams Import/Export Administrator Relationship Specialty Start Date End Date Sariah Vickers ANP [address] [place] [address] PCP - General Family Medicine 09/23/19 Yuri Pierre, MikeD [address] [place] [address] Pharmacist Internal Medicine 05/05/24 Basilio Hall MD [address] [place] [address] Cardiology 05/17/24 Ron Preciado MD [address] [place] [address] Pulmonary Disease 05/17/24 documented as of this encounter
--- OUTSIDE RECORDS SUMMARY | 2024-12-27 09:45 | XMS_ITS | Encounter Summary ---
Author Organization [employer] Address [address] [facility] 7t [place] [address] Care Team Providers Care Slate Trimmer Name Role Phone Sariah Vickers Primary Care Provider [phone] Yuri Pierre PharmD Unavailable [phone] Basilio Hall MD Unavailable [phone] Ron Preciado MD Unavailable [phone] Reason for Visit * Reason Comments Med Refill Encounter Details Date Type Department Care Team (Late st Contact Info) Description 07/10/2023 Refill [facility] [address] [place] [address] Sariah Vickers ANP [address] [place], [place] [phone] Chronic SI joint pain Social History Tobacco [...] your housing situation today? I have rodrigo ketn 06/23/[address] you li [...] 12/27/2024 11:00 AM EST Medication Management [address] [address] Yuri Pierre, PharmD [address] [place] [address] 01/07/2025 9:30 AM EST Clinical Support [address] [address] Azeb Hall, MARTIN [address] [place] [address] 01/11/2025 1:00 PM EST Office Visit [address] [address] Sariah Vickers, ANP [address] [place] [address] 02/03/2025 11:00 AM EST Medication Management [address] [address] Yuri Pierre, PharmD [address] [place] [address] documented as of this encounter Goals Goal [...] Date End Date Sariah Vickers ANP [address] [place] [address] PCP - General Family Medicine 09/23/19 Yuri Pierre, MikeD [address] [place] [address] Pharmacist Internal Medicine 05/05/24 Basilio Hall MD [address] [place] [address] Cardiology 05/17/24 Ron Preciado MD [address] [place] [address] Pulmonary Disease 05/17/24 documented as of this encounter
--- OUTSIDE RECORDS SUMMARY | 2024-12-27 09:45 | XMS_ITS | Encounter Summary ---
Author Organization [employer] Address [address] [facility] 7t [place] [address] Care Team Providers Care Flexible Nanny Name Role Phone Sariah Vickers Primary Care Provider [phone] Yuri Pierre PharmD Unavailable [phone] Basilio Hall MD Unavailable [phone] Ron Preciado MD Unavailable [phone] Reason for Visit * Reason Onset Date Comments Med Refill Durable Medical Equipment 07/15/2023 Foam M attress/Raised Toilet Seat Encounter Details Date Type Department Care Team (Late st Contact Info) Description 07/15/2023 Refill [facility] MEDICINE [address] [place], [place] [phone] Sariah Vickers ANP 230 [place] [address] Neck pain Social History Tobacco Use Types [...] see request sent via email by [facility] [employer]pent[employer] Arlin Baker. Please Advise. Good morning, Our [...] Description 12/27/2024 11:00 AM EST Medication Management [facility] MEDICINE [address] [place] [address] Yuri Pierre, PharmD [address] [place] [address] 01/07/2025 9:30 AM EST Clinical Support [address] [address] Azeb Hall RN [address] [place] [address] 01/11/2025 1:00 PM EST Office Visit [address] [address] Sariah Vickers ANP [address] [place] [address] 02/03/2025 11:00 AM EST Medication Management [address] [phone] Yuri Pierre PharmD [address] [place] [address] documented as of this encounter Goals Goal [...] documented as of this encounter Care Teams Flexible Nanny Relationship Specialty Start Date End Date Sariah Vickers ANP [address] [place] [address] PCP - General Family Medicine 09/23/19 Yuri Pierre PharmD [address] [place] [address] Pharmacist Internal Medicine 05/05/24 Basilio Hall MD [address] [place] [address] Cardiology 05/17/24 Ron Preciado MD [address] [place] [address] Pulmonary Disease 05/17/24 documented as of this encounter
== END 2024-12-27 09:05 | disposition home or self-care (01) ==
LOC: HO.HMGAL 09:04
PROVIDERS: PCP Nurse Practitioner Primary Care; Visit Provider Registered Nurse Emergency
DX: J30.89 Other allergic rhinitis (principal)
CPT/HCPCS: 95117; 95165

== ENCOUNTER 2025-01-03 14:14 | Outpatient (AMB) | payer OTHER, SELFPAY ==
[2025-01-03 14:19] VITALS: BP 130/68; PULSE 82; BMI 32.5
--- NOTE | 2025-01-03 14:19 | MHC.OFFVIS ---
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/ Sariah Vickers/ RBBB/ hyperlipidemia/ectatic aorta Automation Qa Tester Required: Yes Automation Qa Tester Services: Automation Qa Tester Present Automation Qa Tester [place] [facility] Allergies Fish Containing Products Allergy (Intermediate, Verified 12/18/24 05:34) Swelling vancomycin Allergy (Intermediate, Verified 12/18/24 05:34) Rash aspirin (Aspirin) Allergy (Mild, Verified 12/18/24 05:34) ITCHY THROAT azithromycin Allergy (Unknown, Verified 12/18/24 05:34) Unknown naproxen Allergy (Unknown, Verified 12/18/24 05:34) Unknown simvastatin Allergy (Unknown, Verified 12/18/24 05:34) Unknown onion (ONION) Adverse Reaction (Mild, Verified 12/18/24 05:34) RED FACE Medication List - Last Reconciled 01/03/25 by Felipe Alanis MD acetaminophen 650 mg PO Q6H PRN albuterol sulfate 90 mcg/actuation (Ventolin HFA) 2 puffs PO Q4-6H PRN amlodipine 10 mg PO BEDTIME blood sugar diagnostic (FreeStyle Lite Strips) TEST BLOOD SUGAR FOUR TIMES DAILY blood-glucose meter (Accoloyle Flash System kit) As directed blood-glucose sensor (FreeStyle Jalil 3 Plus Sensor device) Use daily As directed to monitor glucose blood-glucose,risk consultant,cont (FreeStyle Jalil 3 [place]) Use daily As directed to monitor blood glucose buspirone 15 mg PO TID cetirizine 10 mg PO QPM clonazepam 0.5 mg PO BEDTIME PRN docusate sodium (Stool Softener) 100 mg PO BID enalapril maleate 20 mg PO DAILY flash glucose scanning reader (ClariticsStyle Jalil 2 [place]) As directed fluticasone propion-salmeterol 250-50 mcg/dose 1 ea inhalation BID fluticasone propionate 50 mcg/actuation 2 sprays intranasal QAM gabapentin 400 mg PO BEDTIME hydrocortisone 2.5% (Proctozone-HC) 1 ea MO BID insulin lispro (Humalog KwikPen (U-100) Insulin) 4 units subcut TID PRN ipratropium-albuterol 0.5 mg-3 mg(2.5 mg base)/3 mL 3 mL inhalation Q6H PRN ipratropium-albuterol 20-100 mcg/actuation (Combivent Respimat) 1 puff inhalation Q6H ketotifen fumarate 0.025%(0.035%) 1 drp ophthalmic (eye) BID Lactobacillus rhamnosus GG (Culturelle) 1 cap PO DAILY lancets (TRUEplus Lancets) TEST BLOOD SUGAR FOUR TIMES DAILY leg brace (Knee Support Brace) As directed levothyroxine (Levoxyl) 88 mcg PO DAILY meclizine 25 mg PO TID PRN metoclopramide HCl 5 mg PO TID montelukast 10 mg PO BEDTIME wjhvnfexjukj-mybm-szjmg acid 18-400 mg-mcg (Certavite-Antioxidant) 1 tab PO DAILY omalizumab 300 mg subcut Q2W 28 days omeprazole 20 mg PO BID peg 3350-electrolytes 236-22.74-6.74 -5.86 gram (Golytely) 240 mL PO Q10M 1 day pen needle, diabetic (UltiCare Pen Needle) USE FOUR TIMES DAILY plecanatide (Trulance) 3 mg PO BEDTIME potassium chloride ER 20 mEq PO BID risperidone 0.5 mg PO BID semaglutide (Ozempic) 0.5 mg (0.736 mL) subcut SA Held on 11/12/24. Instructions: Doctor's Order sennosides (senna) 17.2 mg (2 x 8.6 mg) PO BEDTIME tiotropium bromide (Spiriva with HandiHaler) 1 cap inhalation DAILY tramadol 50 mg PO Q12H PRN zolpidem 10 mg PO BEDTIME PRN HPI Comments Details: Nuvia has been referred for cardiac consultation. Previously seen at [facility], but would like to switch here. Last note reviewed. Apparently, she has long history of chest pain and palpitations. Per notes, she has had workup in the past but not clear what was done. Presumed some form of stress testing has been completed in the past. She apparently gets chest pains somewhat randomly and can happen any time. With or without exertion. There is also mention of aortic root dilatation on the echocardiogram. Mentioned of rheumatic mitral/aortic valve involvement but again not clear what the findings are. Patient really does not have any acute complaints at this time. Longstanding random chest pains. Some shortness of breath related to pulmonary issues. She apparently has asthma. Discussed using maintenance worker municipal. Multiple comorbidities listed below and on polypharmacy. [facility] Medical History Uncontrolled type 2 diabetes mellitus with hyperglycemia, with long-term current use of insulin Severe persistent asthma NIDDY (non-insulin dependent diabetes mellitus in young) COPD (chronic obstructive pulmonary disease) Cellulitis of labia Pulmonary hypertension, pre-operative cardiovascular examination Arthritis Thyroid disease Bilateral renal cysts Right bundle branch block Dental calculus Depression Varicose veins of left lower extremity Ectatic aorta Paresthesia Paresis of one side of face Neck pain Insomnia disorder, with non-sleep disorder mental comorbidity Increased immunoglobulin Constipation Aneurysm of left internal carotid artery Abnormal ultrasound of kidney Type 2 diabetes mellitus History of kidney stones Abnormal finding on ultrasound Tear of medial meniscus of left knee Leg pain Kidney stone on left side MOCK (dyspnea on exertion) Patellofemoral arthritis of left knee Trochanteric bursitis of right hip COVID-19 Carpal tunnel syndrome of right wrist Renal calculi UTI (urinary tract infection) Allergic rhinitis Anxiety and depression Fibromyalgia HTN (hypertension) PTSD (post-traumatic stress disorder) Preop pulmonary/respiratory exam Vertigo Diabetes Asthma Chest pain Tubular adenoma of colon Vulvovaginitis Acute asthma exacerbation Candidiasis of mouth and esophagus Bronchitis Spondylosis of cervical region without myelopathy or radiculopathy Bronchitis COPD exacerbation Yeast infection Papanicolaou smear for cervical cancer screening Bilateral hand pain Bilateral knee pain Low vitamin D level Dry mouth Environmental allergies Non-toxic multinodular goiter Hypothyroidism Type 2 diabetes mellitus with hyperglycemia DVT (deep venous thrombosis) Menopausal state Cocaine abuse Surgical History Encounter for postoperative wound check Status post umbilical hernia repair, follow-up exam Carbuncle and furuncle of buttock Carbuncle of abdominal wall Umbilical hernia Umbilical hernia Hx of carpal tunnel repair History of esophagogastroduodenoscopy (EGD) H/O colonoscopy with polypectomy History of selective injection of anesthetic agent around lumbar nerve root Hx of right breast biopsy History of hysterectomy History of lithotripsy Family History Father No problems noted. 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 Female Reproductive History Menstrual Age of Menarche: 10 Review of Systems Const Denies weakness ENT Reports vertigo and Reports dizziness Card Denies chest pain, Denies chest pain with activity, Denies syncope, Denies rapid heart rate, Denies pedal edema, Denies edema, Denies leg edema, Denies lightheadedness, Reports palpitations, Reports dyspnea, Denies dyspnea on exertion and Denies orthopnea Resp Denies cough, Reports dyspnea and Denies dyspnea on exertion GI Denies hematochezia and Denies change in stool character Musc Denies abnormal gait, Reports joint swelling, Denies muscle cramps, Denies muscle weakness, Denies numbness, Denies radiating pain into limb and Denies tingling Neuro Denies abnormal gait, Reports vertigo, Reports dizziness, Denies syncope, Denies numbness, Denies tingling and Denies weakness Endo Reports palpitations Physical Exam Vital Signs: Last Vital Signs Pulse 82 01/03/25 14:19 BP 130/68 01/03/25 14:19 BMI result Body Mass Index 32.5 Const General: comfortable and no acute distress Orientation/consciousness: patient oriented x3 HEENT Other: Unremarkable Head: Yes normal to inspection Neck Neck: Yes normal visual inspection Chest Chest palpation & inspection: normal inspection of the chest Resp Other: Scattered wheeze Auscultation: diminished lung sounds Cardio Palpation: normal PMI Heart sounds: S1 normal heart sound present, S2 normal heart sound present, no gallops, no murmurs and no rubs GI Palpation (GI): Soft to palpation Back/Spine/Pelvis Other: unremarkable Skin General skin exam: no rashes or lesions noted Neuro General: patient oriented x3 Extrem General: Yes normal to inspection Psych Mental Status: mental status grossly normal Assessment & Plan Assessment & Plan (1) Ascending aorta enlargement: Code(s): I77.89 - Other specified disorders of arteries and arterioles Category: Medical Plan In the recent EKG, underlying rhythm is sinus at 71/Min; MO prolongation to 242 milliseconds; leftward axis; normal corrected QT. In the chest CT scan, ascending aortic size measured at 4.2 cm. Descending aorta 3.2 cm. No coronary artery calcification. Mild emphysema. We will get the last echocardiogram from [facility]. Otherwise, the ascending aortic size can be followed on echocardiogram. Otherwise, with regard to chronic chest pains, we need to get the last stress test from [facility]. No specific workup at this time otherwise. We will follow up with records. Coding Level of Care Code New Pt Level 3 (75405) Diagnoses Ascending aorta enlargement I77.89
== END 2025-01-03 15:00 | disposition home or self-care (01) ==
LOC: HO.HCS 14:14
PROVIDERS: PCP Nurse Practitioner Primary Care; Visit Provider Internal Medicine
DX: I77.89 Other specified disorders of arteries and arterioles (principal)
CPT/HCPCS: 99213

== ENCOUNTER → 2025-01-03 14:14 | Outpatient (BNVA) | payer OTHER, SELFPAY | PROVIDERS: PCP Nurse Practitioner Primary Care; Visit Provider Internal Medicine | DX: Z71.2 Person consulting for explanation of examination or test findings (principal); I77.89 Other specified disorders of arteries and arterioles | CPT/HCPCS: 99212 ==

== ENCOUNTER 2025-01-03 15:17 | Outpatient (AMB) | payer OTHER, SELFPAY ==
--- OUTSIDE RECORDS SUMMARY | 2025-01-04 05:56 | XMS_ITS | Data Portability ---
Author Organization [facility] Address [address] [place] [address] Care Team Providers Care Metalizing 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 Name Role Phone HIM CCA OTHER Assessment Encounter Date Assessment Date Assessment LastModified by Organization Details LastModified Time 09/23/2024 09/23/2024 Mrs. Da Silva presented for isolated episode of nausea and vomiting after taking augmentin on empty stomach. She is on augmentin and prednisone for asthma. Patient afebrile and well-appearing, no abdominal tenderness or distension per community public policy manager exam, nausea has resolved. No chest pain [...] Assessment and Plan as documented by the Code 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. We discussed the diagnostic uncertainty of home [...] 4 mg disintegrat ing tablet 2024 025 [facility], [address] [place] [address], [phone], 09:18:37 Patient TargetsNo targets recorded. Patient InstructionsNo instructions recorded. Reason for Referral None Reported. Medical Equipment None Reported. Allergies Allergen ID Allergen Name Allergen Category Reaction Reaction Severity Criticality Documentation Date Start Date Code Code System Note Provider Name and Address Organization Details Recorded Time 42872 aspirin medicatio n Not available Not available Not available 05/29/2024 1191 RxNorm Not Available [facility] - production 13:30:18 68841 naproxen medicatio n Not available Not available [...] Not Available Not Available No t Available [facility] 10 billion cell-200 [...] Available No t Available FreeStyle Jalil 2 Ridge USE DIRECTED TO TEST BLOOD SUGAR EVERY [...] Available No t Available FreeStyle Jalil 3 Ridge USE DIRECTED TO TEST BLOOD SUGAR active [...] /min 98 [degF] 126/83 mm[Hg] Not Available [employer] 5 16:18:21 Date Recorded Body temperature Oxygen saturation Oxygen saturation in Arterial blood by Pulse oximetry Heart rate Body weight Respiratory rate Body height Systolic And Diastolic Provider Name and Address Organization Details Last Updated DateTime 5 97.6 [degF] 95 % 95 % 82 /min 70481.8 88 g 16 /min 157.48 cm 122/84 mm[Hg] Not Available [employer] 5 17:32:44 Social History None recorded. Functional Status None recorded. Mental Status None recorded. Family History Nothing Reported. Medical History No medical history recorded. Gynecological HistoryNo gynecological history recorded. Obstetrics History GPAL:G 0 P 0 0 0 0 Past Encounters Encounter ID Performer Location Encounter Start Date Encounter Closed Date Diagnosis/Indication Diagnosis SNOMED-CT Code Diagnosis ICD10 Code Diagnosis IMO Codes Diagnosis Note [id number] Kathy Gonzalez MD Main - [email or web address]ED [address] [place] [phone] 05/29/2024 16:18:16 05/30/2024 23:53:07 Wound finding [id number] Z51.89 [id number] Evaluation in the field was performed by my public policy manager colleague, as noted above, I provided real-time [...] shortness of breath, cough, chest pain, fever. [id number] MORGAN JAY MD [facility] [[email or web address] ED Medical [address] [phone] 09/23/2024 17:32:41 09/23/2024 22:05:40 Nausea and vomiting [id number] R11.2 [id number] Health Concerns Section Related Observation LastModified by Organization Detai ls LastModified Time None Recorded Concern Status LastModified by Organization Details LastModified Time None Recorded Advance Directives Directive None Recorded Payers Insurance Date Sequence Insurance Name Policy Number Policy Laws Covered Member ID Laws Member ID Guarantor Name 09/23/2024 1 [facility] - DOS ON OR AFTER 2022 - DUAL ELIGIBLE - PENITENTIARY OPTIONS AND ONE CARE (MEDICARE REPLACEMENT/ADV ANTAGE - HMO) Nuvia Da Silva [id number] Nuvia E Avinash Notes Date Note Type Note Provider Name and Address Organization Details Recorded Time 05/29/2024 text/html CRC Nurse Triage Notes (Tania Kan): Reason For Request: wound care after surgery Chief Complaints: Wound Care PMH: Diabetes Mellitus Type 2, Hyperlipidemia, Hypertension, Kidney Stones, Hysterectomy, Hypothyroidism, Asthma PMH Reviewed at 05/29/2024: Allergies Reviewed at 05/29/2024 Comments: Referral taken via Budder, patient calling in to place a referral. [...] ...................... ...................... ...................... ...................... ...................... ...................... ......... Code 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 Note From Albert Murphy: Arrived to find patient ambulating in her apartment. Patient AOX4, GCS 15, skin pink warm and dry. Patient Cuban speaking only. Central Office Maintainer line used. Patient had hernia surgery on and is wondering if the steri strips are suppose to remain or if she needs to remove them. Educated patient that they stay and will fall off on their own. VS as noted. [facility] came on and was able to interact with patient. MD answered all questions for pt. Patient reassured. Red flags went over with pt. Patient denies any cp, sob, fevers. Incision looks clean and intact. ...................... ...................... ...................... ...................... ...................... ...................... ......... [facility] Consulted: Kathy Gonzalez ...................... ...................... ...................... ...................... ...................... ...................... ......... Disposition: Fulfilled Kathy Gonzalez MD [address] [place] [address],[address], [place], [phone] [employer] 05/29/2024 16:25:31 09/23/2024 text/html ROS as noted in the [facility] CRC Nurse Triage Notes (Swapna Russo): Reason [...] until assessment. POC glucose was 119. Primarily Cuban Speaking. Referral for GI upset, chest congestion/cough/weakn ess. Member aware. I provided information on the mobile health provider response time and advised the patient and/or caregiver to monitor reported signs and symptoms. I discussed the warning signs of when to seek emergency care. ...................... ...................... ...................... ...................... ...................... ...................... ......... Code 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 Note From Sebastien Bliss: instED visit for female pt with complaint of vomiting. Visit was completed with customer service voice by phone. Pt reports single episode of [...] endorsing any shortness of breath. Consulted with [facility] Dr. Jay who prescribed some zofran sent to pt's pharmacy. Red flags relayed by Dr. Jay. Pt education provided. ...................... ...................... ...................... ...................... ...................... ...................... ......... [facility] Consulted: Morgan Jay ...................... ...................... ...................... ...................... ...................... ...................... ......... Disposition: Fulfilled MORGAN JAY MD [address] [facility],[address], [place], [address], [employer] 09/23/2024 20:39:32 OBGyn Episode No OBEpisode recorded.
== END 2025-01-03 15:18 | disposition home or self-care (01) ==
LOC: HO.HMGAL 15:17
PROVIDERS: PCP Nurse Practitioner Primary Care; Visit Provider Registered Nurse Emergency
DX: J30.89 Other allergic rhinitis (principal)
CPT/HCPCS: 95117; 95165

== ENCOUNTER 2025-01-06 12:01 | Outpatient (AMB) | payer OTHER, SELFPAY ==
--- NOTE | 2025-01-06 12:01 | A.OFFVIS_ITS ---
Intake Visit Reasons: 6M/US Intake Note: Patient is present for 6M/US Urology Medication:POTASSIUM CHLORIDE Antibiotic Allergy:VANCOMYCIN Blood Thinner:NONE Wholesale Diamond Broker Required: No Wholesale Diamond Broker Services: Wholesale Diamond Broker Present Wholesale Diamond Broker Name: Cortney Hancock Allergies Fish Containing Products Allergy (Intermediate, Verified 01/06/25 12:14) Swelling vancomycin Allergy (Intermediate, Verified 01/06/25 12:14) Rash aspirin (Aspirin) Allergy (Mild, Verified 01/06/25 12:14) ITCHY THROAT azithromycin Allergy (Unknown, Verified 01/06/25 12:14) Unknown naproxen Allergy (Unknown, Verified 01/06/25 12:14) Unknown simvastatin Allergy (Unknown, Verified 01/06/25 12:14) Unknown onion (ONION) Adverse Reaction (Mild, Verified 01/06/25 12:14) RED FACE Medication List - Last Reconciled 01/06/25 by NOÉ Duong acetaminophen 650 mg PO Q6H PRN albuterol sulfate 90 mcg/actuation (Ventolin HFA) 2 puffs PO Q4-6H PRN amlodipine 10 mg PO BEDTIME blood sugar diagnostic (FreeStyle Lite Strips) TEST BLOOD SUGAR FOUR TIMES DAILY blood-glucose meter (ThinkLinkStyle Flash System kit) As directed blood-glucose sensor (ThinkLinkStyle Jalil 3 Plus Sensor device) Use daily As directed to monitor glucose blood-glucose,awning craftsperson,cont (FreeStyle Jalil 3 [place]) Use daily As directed to monitor blood glucose buspirone 15 mg PO TID cetirizine 10 mg PO QPM clonazepam 0.5 mg PO BEDTIME PRN docusate sodium (Stool Softener) 100 mg PO BID enalapril maleate 20 mg PO DAILY flash glucose scanning reader (ThinkLinkStyle Jalil 2 [place]) As directed fluticasone propion-salmeterol 250-50 mcg/dose 1 ea inhalation BID fluticasone propionate 50 mcg/actuation 2 sprays intranasal QAM gabapentin 400 mg PO BEDTIME hydrocortisone 2.5% (Proctozone-HC) 1 ea UT BID insulin lispro (Humalog KwikPen (U-100) Insulin) 4 units subcut TID PRN ipratropium-albuterol 0.5 mg-3 mg(2.5 mg base)/3 mL 3 mL inhalation Q6H PRN ipratropium-albuterol 20-100 mcg/actuation (Combivent Respimat) 1 puff inhalation Q6H ketotifen fumarate 0.025%(0.035%) 1 drp ophthalmic (eye) BID Lactobacillus rhamnosus GG (Culturelle) 1 cap PO DAILY lancets (TRUEplus Lancets) TEST BLOOD SUGAR FOUR TIMES DAILY leg brace (Knee Support Brace) As directed levofloxacin 750 mg PO Q24H levothyroxine (Levoxyl) 88 mcg PO DAILY meclizine 25 mg PO TID PRN metoclopramide HCl 5 mg PO TID montelukast 10 mg PO BEDTIME aheuceylhvnp-cluj-aajql acid 18-400 mg-mcg (Certavite-Antioxidant) 1 tab PO D AILY omalizumab 300 mg subcut Q2W 28 days omeprazole 20 mg PO BID peg 3350-electrolytes 236-22.74-6.74 -5.86 gram (Golytely) 240 mL PO Q10M 1 day pen needle, diabetic (UltiCare Pen Needle) USE FOUR TIMES DAILY plecanatide (Trulance) 3 mg PO BEDTIME potassium chloride ER 20 mEq PO BID prednisone 40 mg (2 x 20 mg) PO DAILY risperidone 0.5 mg PO BID semaglutide (Ozempic) 0.5 mg (0.736 mL) subcut SA Held on 11/12/24. Instructions: Doctor's Order sennosides (senna) 17.2 mg (2 x 8.6 mg) PO BEDTIME tiotropium bromide (Spiriva with HandiHaler) 1 cap inhalation DAILY tramadol 50 mg PO Q12H PRN zolpidem 10 mg PO BEDTIME PRN HPI Comments Details: Nuvia is a pleasant 63-year-old Vietnamese-speaking female patient of Dr. Vickers. She has a past medical history of severe persistent asthma, COPD, pulmonary hypertension, arthritis, thyroid disease, bilateral renal cysts, right bundle branch block, depression, varicose veins of left lower extremity, insomnia, constipation, type 2 diabetes, nephrolithiasis, carpal tunnel syndrome, allergic rhinitis, fibromyalgia, anxiety, depression, PTSD, vertigo, and bronchitis. She is being followed up on today via telehealth for her history of nephrolithiasis was well as renal cysts. In discussion with the patient today she denies having had any bothersome urinary issues or concerns since her last office visit. Results reviewed with the patient today 01/11 bilateral renal cysts redemonstrated, no renal stones noted. Pelvic contents are unremarkable per radiology report. When asked she currently denies any bothersome urinary issues. She denies urinary urgency, urinary frequency, incontinence, nocturia, hematuria, dysuria, foul smelling urine, changes to urinary stream, flank pain, fever, and or chills. She is happy with her current voiding parameters. We disc ussed continuation of surveillance monitoring of nephrolithiasis as well as renal cysts. She otherwise offers no other issues or concerns at this time. [facility] Medical History Uncontrolled type 2 diabetes mellitus with hyperglycemia, with long-term current use of insulin Severe persistent asthma NIDDY (non-insulin dependent diabetes mellitus in young) COPD (chronic obstructive pulmonary disease) Cellulitis of labia Pulmonary hypertension, pre-operative cardiovascular examination Arthritis Thyroid disease Bilateral renal cysts Right bundle branch block Dental calculus Depression Varicose veins of left lower extremity Ectatic aorta Paresthesia Paresis of one side of face Neck pain Insomnia disorder, with non-sleep disorder mental comorbidity Increased immunoglobulin Constipation Aneurysm of left internal carotid artery Abnormal ultrasound of kidney Type 2 diabetes mellitus History of kidney stones Abnormal finding on ultrasound Tear of medial meniscus of left knee Leg pain Kidney stone on left side MOCK (dyspnea on exertion) Patellofemoral arthritis of left knee Trochanteric bursitis of right hip COVID-19 Carpal tunnel syndrome of right wrist Renal calculi UTI (urinary tract infection) Allergic rhinitis Anxiety and depression Fibromyalgia HTN (hypertension) PTSD (post-traumatic stress disorder) Preop pulmonary/respiratory exam Vertigo Diabetes Asthma Chest pain Tubular adenoma of colon Vulvovaginitis Acute asthma exacerbation Candidiasis of mouth and esophagus Bronchitis Spondylosis of cervical region without myelopathy or radiculopathy Bronchitis COPD exacerbation Yeast infection Papanicolaou smear for cervical cancer screening Bilateral hand pain Bilateral knee pain Low vitamin D level Dry mouth Environmental allergies Non-toxic multinodular goiter Hypothyroidism Type 2 diabetes mellitus with hyperglycemia DVT (deep venous thrombosis) Menopausal state Cocaine abuse Surgical History Encounter for postoperative wound check Status post umbilical hernia repair, follow-up exam Carbuncle and furuncle of buttock Carbuncle of abdominal wall Umbilical hernia Umbilical hernia Hx of carpal tunnel repair History of esophagogastroduodenoscopy (EGD) H/O colonoscopy with polypectomy History of selective injection of anesthetic agent around lumbar nerve root Hx of right breast biopsy History of hysterectomy History of lithotripsy Family History Father No problems noted. 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 Female Reproductive History Menstrual Age of Menarche: 10 Review of Systems Eyes Reports no additional complaints ENT Reports no additional complaints Card Reports as per HPI Resp Reports as per HPI GI Reports no additional complaints Reports as per HPI Musc Reports as per HPI Neuro Reports as per HPI Psych Reports as per HPI Endo Reports as per HPI Physical Exam Const General: cooperative Orientation/consciousness: patient oriented x3 Resp Effort & Inspection: able to speak in complete sentences Neuro General: patient oriented x3 Psych Speech and movement: Clear speech present Attitude: cooperative Thought content: Normal thought content present Insight: Fair insight present (Psych) Judgement: Fair judgement present (Psych) Telehealth Telehealth Telehealth Platform: Telephone Location of provider rendering services: practice address Location of patient: address on file Patient Identification confirmed using: Name, : Yes Telehealth method: voice only Patient verbally consented to treatment: Yes Patient verbally consented to billing insurance company: Yes Patient informed of any privacy concerns related to visit: Yes Minutes spent on Phone/Video with Pt.: 15 Results Reviewed Results Reviewed: Date of Service: 12/18/24 Findings: The lung bases are clear. Gallbladder is within normal limits. Punctate subcentimeter hepatic hypodensities are scattered throughout the liver and too small to characterize though likely reflect hepatic cysts. No biliary dilation. Spleen, pancreas, bilateral adrenal glands are within normal limits. Bilateral renal cysts redemonstrated. No renal stones. Colonic diverticulosis without findings of diverticulitis. No bowel obstruction, pneumoperitoneum, or pneumatosis. The appendix is normal. Aorta nonaneurysmal. Moderate atherosclerotic disease throughout the aorta and major branch vessels. No ascites. No retroperitoneal lymphadenopathy. Pelvic contents unremarkable. No acute osseous abnormality. No acute soft tissue abnormality. IMPRESSION: No acute intra-abdominal or pelvic abnormality. Assessment & Plan Assessment & Plan (1) Nephrolithiasis: Code(s): N20.0 - Calculus of kidney Category: Medical (2) Renal cyst: Code(s): N28.1 - Cyst of kidney, acquired Category: Medical Plan Recent renal imaging results reviewed with the patient today; as noted above. Will continue with surveillance monitoring. She currently denies any bothersome urinary issues or concerns. She reports be happy with current voiding parameters. Discussed, educated, and stressed the importance of adequate hydration relation to nephrolithiasis as well as overall health and well-being. Continue adding 1 oz of lemon juice to water daily. Will obtain renal ultrasound in 1 year Follow-up in 1 year with imaging to be completed prior; or sooner with any issues, concerns, and or questions. Orders: Orders US renal BI 1 Year N20.0 - Calculus of kidney Medications: Discontinued doxycycline monohydrate Discontinued Reason: Doctor's Order 100 mg PO BID 14 caps 0RF Patient Instructions: The patient had an opportunity to ask questions regarding the treatment plan. All questions were answered. Physical exam, labs, and imaging were discussed and reviewed in detail. As well as risks, benefits, and discussion of treatment choices. No major barriers to understanding were identified. The patient expr essed understanding and agreement with the above treatment plan. The patient was made aware they should contact our office by phone for worsening of their current condition, the appearance of new symptoms, or with any questions or concerns. Compliance is encouraged with any medications and follow up testing that is ordered. It is a privilege to be allowed the opportunity to participate in? your urological care.? Again, if you have any questions or concerns If you have any questions or concerns please do not hesitate to contact me. The office is [phone]. This note is constructed using voice recognition software. While every effort has been made to ensure accuracy director of events errors may have been included. Yours sincerely, NOÉ Duong Coding Level of Care Code Complex visit Add On G2211 Diagnoses Nephrolithiasis N20.0 Renal cyst N28.1
--- OUTSIDE RECORDS SUMMARY | 2025-01-06 18:13 | XMS_ITS | Data Portability ---
Author Organization [employer] [facility], [facility] Address [address] [place] [address] Care Team Providers Care Opal Miner Name Role Phone HIM CCA OTHER Assessment Encounter Date Assessment Date Assessment LastModified by Organization Details LastModified Time 09/23/2024 09/23/2024 Mrs. Da Silva presented for isolated episode of nausea and vomiting after taking augmentin on empty stomach. She is on augmentin and prednisone for asthma. Patient afebrile and well-appearing, no abdominal tenderness or distension per community busher helper exam, nausea has resolved. No chest pain [...] Assessment and Plan as documented by the Flash Ranging Crewmember. We discussed the diagnostic uncertainty of home [...] 4 mg disintegrat ing tablet 2024 025 [facility], [address] [place] [address], [id number], 09:18:37 Patient TargetsNo targets recorded. Patient InstructionsNo instructions recorded. Reason for Referral None Reported. Medical Equipment None Reported. Allergies Allergen ID Allergen Name Allergen Category Reaction Reaction Severity Criticality Documentation Date Start Date Code Code System Note Provider Name and Address Organization Details Recorded Time 90106 aspirin medicatio n Not available Not available Not available 05/29/2024 1191 RxNorm Not Available [facility] - production 13:30:18 49993 naproxen medicatio n Not available Not available [...] Available No t Available FreeStyle Jalil 2 [place] USE DIRECTED TO TEST BLOOD SUGAR EVERY [...] Available No t Available FreeStyle Jalil 3 [place] USE DIRECTED TO TEST BLOOD SUGAR active Not Available Not Available No t Available FreeStyle Jalil 3 Plus Sensor device USE DIRECTED TO TEST BLOOD SUGAR CHANGE EVERY 15 DAYS active Not Available Not Available No t Available Lorna Pen Needle 32 gauge x 5/32 USE DIRECTED THREE TIMES DAILY active Not Available Not Available No t Available Vitals Date Recorded Oxygen saturation Heart rate Respiratory rate Body temperature Systolic And Diastolic Provider Name and Address Organization Details Last Updated DateTime 5 93 % 88 /min 16 /min 98 [degF] 126/83 mm[Hg] Not Available Struq 5 16:18:21 Date Recorded Body temperature Oxygen saturation Heart rate Body weight Respiratory rate Body height Systolic And Diastolic Provider Name and Address Organization Details Last Updated DateTime 5 97.6 [degF] 95 % 82 /min 19409.8 88 g 16 /min 157.48 cm 122/84 mm[Hg] Not Available Struq 5 17:32:44 Social History None recorded. Functional Status None recorded. Mental Status None recorded. Family History Nothing Reported. Medical History No medical history recorded. Gynecological HistoryNo gynecological history recorded. Obstetrics History GPAL:G 0 P 0 0 0 0 Past Encounters Encounter ID Performer Location Encounter Start Date Encounter Closed Date Diagnosis/Indication Diagnosis SNOMED-CT Code Diagnosis ICD10 Code Diagnosis IMO Codes Diagnosis Note [id number] Kathy Gonzalez MD [facility] - [address] [address] 05/29/2024 16:18:16 05/30/2024 23:53:07 Wound finding 598316502 Z51.89 [id number] Evaluation in the field was performed by my busher helper colleague, as noted above, I provided real-time [...] shortness of breath, cough, chest pain, fever. [id number] MORGAN JAY MD [facility] ED Medical [address] [address] 09/23/2024 17:32:41 09/23/2024 22:05:40 Nausea and vomiting 07399332 R11.2 [id number] Health Concerns Section Related Observation LastModified by Organization Detai ls LastModified Time None Recorded Concern Status LastModified by Organization Details LastModified Time None Recorded Advance Directives Directive None Recorded Payers Insurance Date Sequence Insurance Name Policy Number Policy Laws Covered Member ID Laws Member ID Guarantor Name 09/23/2024 1 [facility] - DOS ON OR AFTER 2022 - DUAL ELIGIBLE - DETENTION OPTIONS AND ONE CARE (MEDICARE REPLACEMENT/ADV ANTAGE - HMO) Nuvia Da Silva [id number] Nuvia Da Silva Notes Date Note Type Note Provider Name and Address Organization Details Recorded Time 05/29/2024 text/html CRC Nurse Triage Notes (Tania Kan): Reason For Request: wound care after surgery Chief Complaints: Wound Care PMH: Diabetes Mellitus Type 2, Hyperlipidemia, Hypertension, Kidney Stones, Hysterectomy, Hypothyroidism, Asthma PMH Reviewed at 05/29/2024 Allergies Reviewed at 05/29/2024: Comments: Referral taken via Maintenance Construction Helper, patient calling in to place a referral. [...] ...................... ...................... ...................... ...................... ...................... ...................... ......... Flash Ranging Crewmember Note From Albert Murphy: Arrived to find patient ambulating in her apartment. Patient AOX4, GCS 15, skin pink warm and dry. Patient Singaporean speaking only. Belt Picker line used. Patient had hernia surgery on and is wondering if the steri strips are suppose to remain or if she needs to remove them. Educated patient that they stay and will fall off on their own. VS as noted. [facility] came on and was able to interact with patient. MD answered all questions for pt. Patient reassured. Red flags went over with pt. Patient denies any cp, sob, fevers. Incision looks clean and intact. ...................... ...................... ...................... ...................... ...................... ...................... ......... [facility] Consulted: Kathy Gonzalez ...................... ...................... ...................... ...................... ...................... ...................... ......... Disposition: Fulfilled Kathy Gonzalez MD [address] [place] [address],[address], [place], [address], [employer] 05/29/2024 16:25:31 09/23/2024 text/html ROS as noted in the [facility] Nurse Triage Notes (Swapna Russo): Reason [...] until assessment. POC glucose was 119. Primarily Singaporean Speaking. Referral for GI upset, chest congestion/cough/weakn ess. Member aware. I provided information on the mobile health provider response time and advised the patient and/or caregiver to monitor reported signs and symptoms. I discussed the warning signs of when to seek emergency care. ...................... ...................... ...................... ...................... ...................... ...................... ......... Flash Ranging Crewmember Note From Sebastien Bliss: instED visit for female pt with complaint of vomiting. Visit was completed with commercial construction estimator by phone. Pt reports single episode of [...] any shortness of breath. Consulted with [facility] Dr. Jay who prescribed some zofran sent to pt's pharmacy. Red flags relayed by Dr. Jay. Pt education provided. ...................... ...................... ...................... ...................... ...................... ...................... ......... [facility] Consulted: Morgan Jay ...................... ...................... ...................... ...................... ...................... ...................... ......... Disposition: Fulfilled MORGAN JAY MD [address] [facility],[address], [place], [address], MONICA LUND 09/23/2024 20:39:32 OBGyn Episode No OBEpisode recorded.
== END 2025-01-06 13:13 | disposition home or self-care (01) ==
LOC: HO.HUSH 12:01
PROVIDERS: PCP Nurse Practitioner Primary Care; Visit Provider Nurse Practitioner Family
DX: N20.0 Calculus of kidney (principal); N28.1 Cyst of kidney, acquired
CPT/HCPCS: 99214; G2211

== ENCOUNTER → 2025-01-06 12:01 | Outpatient (BNVA) | payer OTHER, SELFPAY | PROVIDERS: PCP Nurse Practitioner Primary Care; Visit Provider Nurse Practitioner Family | DX: N20.0 Calculus of kidney (principal); N28.1 Cyst of kidney, acquired | CPT/HCPCS: 99212 ==

== ENCOUNTER 2025-01-10 10:00 | Outpatient (AMB) | payer OTHER, SELFPAY ==
--- OUTSIDE RECORDS SUMMARY | 2025-01-07 09:30 | XMS_ITS | Encounter Summary ---
Author Organization [employer] Address [address] [facility] 7[address] [place] [address] Care Team Providers Care Digital Performance Analyst Name Role Phone Sariah Vickers KAYLEE Primary Care Provider [phone] Yuri Pierre PharmD Unavailable [phone] Basilio Hall MD Unavailable [phone] Ron Preciado MD Unavailable [phone] Reason for Visit * Reason Comments DISTRICT RECRUITER Encounter Details Date Type Department Care Team (Latest Contact Info) Description 01/07/2025 9:30 AM EST Clinical Support [facility] MEDICINE [address] [place] [address] Azeb Hall, RN [address] [place], [place] [phone] Long-term current use of opiate analgesic (Primary Dx) Social History Tobacco Use Types [...] Progress Notes * Azeb Hall RN - 01/07/2025 9:30 AM EST SUBJECTIVE: Nuvia Ho is a 64 y.o. year old female who presents for DISTRICT RECRUITER Preferred language for medical information: Azeri Interpreted needed: Yes Patient Educator service utilized: [facility] remote sensing engineer Nuvia Ho does report adherence to Tramadol (Ultram) 50 mg, take 1 tablet every 12 hours PRN, last refilled 12/17/24. The patient last took Tramadol (Ultram) on: 01/07/25 Medication is: 70% % effective at alleviating pain. OBJECTIVE: MELON PACKER checked: 01/07/2025 Pill count completed for Tramadol (Ultram), count today is 19 , anticipated count should be 17, this is as expected. Last PCP visit: 10/14/24 BPI completed on: 02/04/24 , pain severity score: 7, activity interference score: 9 BPI completed on: 10/01/24 , pain severity score: 9, activity interference score: 5 Controlled substance agreement signed: Controlled Substance Agreement 01/07/2025 DISTRICT RECRUITER Tier: 2 Current Medications[1] Smoking status: Denies ETOH use: Denies Illicit substances: Denies Marijuana use: Denies, Lab Results Component Value Date POCTHC Negative 01/07/2025 POCCOCAINEUR Negative 01/07/2025 POCOPIATEUR Negative 01/07/2025 DOAUR Negative 01/07/2025 POCAMPHETAMI Negative 01/07/2025 POCBENZODIUR Negative 01/07/2025 POCBARBSCRN Negative 01/07/2025 POCMETHADOUR Negative 01/07/2025 POCBUPSCRN Negative 01/07/2025 POCTCAUR Negative 01/07/2025 POCMDMAUR Negative 01/07/2025 POCOXYCODONE Negative 01/07/2025 POCPHENCYCUR Negative 01/07/2025 PROPOXUR Negative 01/07/2025 FENTANYLURIN Negative 01/07/2025 ASSESSMENT: Encounter Diagnosis Name Primary? Long-term current use of opiate analgesic Yes PLAN: Information on pain group given: Previously discussed Information on acupuncture given: Previously discussed Narcan education provided: Previously discussed Narcan prescription: active Nuvia Ho will continue taking medication as prescribed and follow up at the next DISTRICT RECRUITER visit or sooner if needed. Nuvia Ho has verbalized understanding of care plan. Future Appointments Date Time Provider Department Center 01/11/2025 1:00 PM KAYLEE Lopez MEDICINE [facility] 02/03/2025 11:00 AM Yuri Pierre PharmD MEDICINE [facility] 04/04/2025 10:00 AM Azeb Hall RN [facility] Azeb Hall RN [1] Current Outpatient Medications: acetaminophen (Tylenol) 325 MG tablet, TAKE 1 TO 2 TABLETS BY MOUTH EVERY 6 HOURS NEEDED, Disp: 120 tablet, Rfl: 0 Alcohol Swabs (Alcohol Prep) 70 % pads, USE DAILY DIRECTED, Disp: 100 each, Rfl: 11 amLODIPine (Norvasc) 10 MG tablet, TAKE 1 TABLET BY MOUTH EVERY EVENING, Disp: 90 tablet, Rfl: 1 Baqsimi Two Pack 3 MG/DOSE nasal powder, USE 1 SPRAY (3MG) IN ONE NOSTRIL FOR A PATIENT WITH SEVEREHYPOGLYCEMIA WHO IS NOT RESPONSIVE AND UNABLE SELF-TREAT WITH GLUCOSE. AFTERWARDS TURN ON SIDE. MAYREPEAT IN 15MINUTES IF PATIENT DOES NOT RESPOND., Disp: 2 each, Rfl: 1 BD Pen Needle Lorna U/F 32G X 4 MM misc, USE DIRECTED THREE TIMES DAILY, Disp: 100 each, Rfl: 5 Blood Glucose Monitoring Suppl (FreeStyle Lite) w/Device kit, 1 each 3 times daily., Disp: 1 kit, Rfl: 0 busPIRone (Buspar) 15 MG tablet, Take 1 tablet by mouth every 6 (six) hours during the day., Disp: , Rfl: cetirizine (ZyrTEC) 10 MG tablet, Take 1 tablet (10 mg) by mouth Once per day., Disp: 30 tablet, Rfl: 11 clonazePAM (KlonoPIN) 1 MG tablet, , Disp: , Rfl: Combivent Respimat 20-100 MCG/ACT inhaler, , Disp: , Rfl: Continuous Glucose Program Paraprofessional (Dexcom G7 Program Paraprofessional) device, 1 each Once per day for 1 day., Disp: 1 each, Rfl: 0 Continuous Glucose Program Paraprofessional (FreeStyle Jalil 3 [place]) device, 1 each Once per day. Use as directedfor CGM, Disp: 1 each, Rfl: 0 Continuous Glucose Sensor (Dexcom G7 Sensor) misc, 1 each 3 times daily. Apply 1 sensor every 10 days, Disp: 3 each, Rfl: 11 Continuous Glucose Sensor (FreeStyle Jalil 3 Plus Sensor) misc, 1 each every 15 days. Apply 1 every15 days as directed for CGM, Disp: 2 each, Rfl: 11 Denta 5000 Plus 1.1 % cream, APPLY TO TEETH TWICE DAILY DIRECTED, Disp: 102 g, Rfl: 0 Diclofenac Sodium 1 % gel, APPLY 2 [...] Rfl: 5 gabapentin (Neurontin) 400 MG capsule, Take 1 capsule (400 mg) by mouth at bedtime., Disp: 30 capsule, Rfl: 2 Glutose 15 40 % gel oral gel, TAKE 15 GRAMS BY MOUTH ONCE DAILY NEEDED FOR LOW BLOOD SUGAR, Disp: 112.5 g, Rfl: 2 hydrocortisone (Anusol-HC) 2.5 % rectal cream, APPLY [...] daily., Disp: 10 mL, Rfl: 5 Lactobacillus-Inulin ([facility]) capsule, , Disp: , Rfl: levothyroxine (Synthroid, Levoxyl) 88 MCG tablet, Take 88 mcg by mouth in the morning., Disp: , Rfl: lidocaine (Lidoderm) 5 % patch, APPLY 1 [...] THE EVENING, Disp: 180 tablet, Rfl: 1 pyridoxine (Vitamin B-6) 100 MG tablet, , Disp: , Rfl: risperiDONE (RisperDAL) 0.5 MG tablet, Take 1 tablet by mouth in the morning and 1 tablet in the evening., Disp: , Rfl: semaglutide (Ozempic) 2 MG/1.5ML solution pen-injector, Inject 0.25 mg under the skin 1 (one) time per week., Disp: 1 each, Rfl: 11 senna (Senokot) 8.6 MG tablet, TAKE 2 TABLETS BY MOUTH EVERY DAY AT BEDTIME FOR CONSTIPATION, Disp:180 tablet, Rfl: 0 tiotropium (Spiriva HandiHaler) 18 MCG inhalation capsule, Place 1 capsule into inhaler and inhale at bed time., Disp: , Rfl: traMADol (Ultram) 50 MG tablet, Take 1 tablet (50 mg) by mouth every 12 (twelve) hours if needed for severe pain. Do not start before December 17, 2024., Disp: 60 tablet, Rfl: 0 TRUEplus Glucose 4 g chewable tablet, CHEW 4 TABLETS NEEDED FOR low blood sugar (LESS THAN 70mg/dL), Disp: 50 tablet, Rfl: 12 TRUEplus Lancets 33G misc, TEST BLOOD SUGAR [...] Care Team (Late st Contact Info) Description 01/11/2025 1:00 PM EST Office Visit [facility] [address] [place] [address] Sariah Vickers, ANP [address] [place] [address] 02/03/2025 11:00 AM EST Medication Management [facility] [address] [place] [address] Yuri Pierre, PharmD [address] [place] [address] 04/04/2025 10:00 AM EST Telemedicine [facility] [address] [place] [address] Azeb Hall RN [address] [place], [place] documented as of this encounter Goals Goal Patient Goal Type Associated Problems Recent Progress Patient-Stated? Author Blood Pressure < 140/90 Blood Pressure 126/82(2024 11:16 AM EST) No Aida Ragland PharmD Record Your Blood Sugar As Directed General No Aida Ragland PharmD Hemoglobin A1c < 7 Result Component 6.6( 1:54 PM EDT) No Aida Ragland PharmD Help patients manage their type 2 diabetes Care Plan Help patients manage their type 2 diabetes No Azeb Hall RN Weekly blood pressure task Care Plan Weekly blood pressure task No Azeb Hall RN Help patients manage their type 2 diabetes Care Plan Help patients manage their type 2 diabetes No Azeb Hall RN Patient has chronic kidney disease Care Plan Patient has chronic kidney disease No Azeb Hall RN Weekly blood pressure task Care Plan Weekly blood pressure task No Azeb Hall RN Patient has chronic kidney disease Care Plan Patient has chronic kidney disease No Azeb Hall RN documented as of this encounter Procedures Procedure Name Priority Date/Time Associated Diagnosis Comments POCT FRANKLIN-14 URINE DRUG SCREEN Routine 01/07/2025 9:33 AM EST Long-term current use of opiate analgesic documented in this encounter Results * POCT FRANKLIN-14 Urine Drug Screen (01/07/2025 9:33 AM EST) THC Negative Negative Cocaine Screen, Urine Negative [...] obtained by clean catch procedure / Unknown 01/07/2025 9:33 AM EST Narrative Azeb Hall RN - 01/07/2025 9:33 AM EST .UTOX cup Lot#[id number] Exp. 01/17/26 Internal Pass Control us Sariah PAGE POINT OF CARE TEST ENTER/EDIT OR DERABLES Final Result documented in this encounter Visit Diagnoses Diagnosis Long-term current use of opiate analgesic- Primary Encounter for long-term (current) use of other medications documented in this encounter Additional Health Concerns Active Problems Noted Date Diagnosed Date Help patients manage their type 2 diabetes 01/07 Weekly blood pressure task 01/07/2025 Help patients manage their type 2 diabetes 01/07 Patient has chronic kidney disease 01/07/2025 Weekly blood pressure task 01/07/2025 Patient has chronic kidney disease 01/07/2025 Assessment Noted Time PHQ-9 Depression Total Score: 11 025 5:30 PM EDT documented as of this encounter Care Teams Digital Performance Analyst Relationship Specialty Start Date End Date Sariah Vickers ANP [address] [place] [address] PCP - General Family Medicine 09/23/19 Yuri Pierre, MikeD [address] [place] [address] Pharmacist Internal Medicine 05/05/24 Basilio Hall MD [address] [place] [address] Cardiology 05/17/24 Ron Preciado MD [address] [place] [address] Pulmonary Disease 05/17/24 documented as of this encounter
--- OUTSIDE RECORDS SUMMARY | 2025-01-10 11:59 | XMS_ITS | Encounter Summary ---
Author Organization [employer] Address [address] [facility] 7t [place] [address] Care Team Providers Care Rollout Manager Name Role Phone Sariah Vickers Primary Care Provider [phone] Yuri Pierre PharmD Unavailable [phone] Basilio Hall MD Unavailable [phone] Ron Preciado MD Unavailable [phone] Reason for Visit * Reason Comments Med Refill Encounter Details Date Type Department Care Team (Late st Contact Info) Description 08/22/2023 Refill [facility] [address] [place] [address] Sariah Vickers ANP [address] [place] [address] Neck pain Social History Tobacco Use Types [...] Description 01/11/2025 1:00 PM EST Office Visit [facility] [address] [place] [address] Sariah Vickers, ANP [address] [place] [address] 02/03/2025 11:00 AM EST Medication Management [facility] [address] [place] [address] uYri Pierre, MikeD [address] [place] [address] 04/04/2025 10:00 AM EST Telemedicine [facility] [address] [place] [address] Azeb Hall, MARTIN [address] [place] [address] documented as of this encounter Goals Goal Patient Goal Type Associated Problems Recent Progress Patient-Stated? Author Blood Pressure < 140/90 Blood Pressure 126/82(2024 11:16 AM EST) No Aida Ragland PharmBear Record [...] documented as of this encounter Care Teams Rollout Manager Relationship Specialty Start Date End Date Sariah Vickers ANP [address] [place] [address] PCP - General Family Medicine 09/23/19 Yuri Pierre, MikeD [address] [place] [address] Pharmacist Internal Medicine 05/05/24 Basilio Hall MD [address] [place] [address] Cardiology 05/17/24 Ron Preciado MD [address] [place] [address] Pulmonary Disease 05/17/24 documented as of this encounter
--- OUTSIDE RECORDS SUMMARY | 2025-01-10 11:59 | XMS_ITS | Encounter Summary ---
Author Organization [employer] Address [address] [facility] 7t [place] [address] Care Team Providers Care Rapier Insertion Loom Fixer Name Role Phone Sariah Vickers Primary Care Provider [phone] Yuri Pierre PharmD Unavailable [phone] Basilio Hall MD Unavailable [phone] Ron Preciado MD Unavailable [phone] Encounter Details Date Type Department Care Team (Late st Contact Info) Description 02/05/2022 Abstract [facility] [address] [place] [address] Sariah Vickers ANP [address] [place] [address] Social History Tobacco Use Types Packs/Day Years [...] Description 01/11/2025 1:00 PM EST Office Visit [facility] [address] [place] [address] Sariah Vickers ANP [address] [place] [address] 02/03/2025 11:00 AM EST Medication Management [facility] [address] [place] [address] Yuri Pierre, PharmBear [address] [place] [address] 04/04/2025 10:00 AM EST Telemedicine [facility] [address] [place] [address] Azeb Hall, RN [address] [place] [address] documented as of this encounter Visit Diagnoses Not on filedocumented in this encounter Care Teams Rapier Insertion Loom Fixer Relationship Specialty Start Date End Date Sariah Vickers ANP [address] [place] [address] PCP - General Family Medicine 09/23/19 Yuri Pierre, PharmD [address] [place] [address] Pharmacist Internal Medicine 05/05/24 Basilio Hall MD [address] [place] [address] Cardiology 05/17/24 Ron Preciado MD [address] [place] [address] Pulmonary Disease 05/17/24 documented as of this encounter
--- OUTSIDE RECORDS SUMMARY | 2025-01-10 11:59 | XMS_ITS | Encounter Summary ---
Author Organization [employer] Address [address] [facility] 7t [place] [address] Care Team Providers Care Bakery Decorator Name Role Phone Sariah Vickers Primary Care Provider [phone] Yuri Pierre PharmD Unavailable [phone] Basilio Hall MD Unavailable [phone] Ron Preciado MD Unavailable [phone] Reason for Visit * Reason Comments Med Refill Encounter Details Date Type Department Care Team (Late st Contact Info) Description 12/12/2024 Refill [facility] MED & PEDS [address] [place] [address] Sariah Vickers ANP [address] [place] [address] Cervicalgia Social History Tobacco Use Types Packs/Day [...] Description 01/11/2025 1:00 PM EST Office Visit [facility] MEDICINE [address] [place] [address] Sariah Vickers, ANP [address] [place] [address] 02/03/2025 11:00 AM EST Medication Management [facility] MEDICINE [address] [place] [address] Yuri Pierre, PharmD [address] [place] [address] 04/04/2025 10:00 AM EST Telemedicine [facility] PEDS [address] [place] [address] Azeb Hall, RN [address] [place] [address] documented as of this encounter Goals Goal Patient Goal Type Associated Problems Recent Progress Patient-Stated? Author Blood Pressure < 140/90 Blood Pressure 126/82(11/10/ 2025 11:16 AM EST) No Aida Ragland PharmD [...] documented as of this encounter Care Teams Bakery Decorator Relationship Specialty Start Date End Date Sariah Vickers ANP [address] [place] [address] PCP - General Family Medicine 09/23/19 Yuri Pierre, MikeD [address] [place] [address] Pharmacist Internal Medicine 05/05/24 Basilio Hall MD [address] [place] [address] Cardiology 05/17/24 Ron Preciado MD [address] [place] [address] Pulmonary Disease 05/17/24 documented as of this encounter
--- OUTSIDE RECORDS SUMMARY | 2025-01-10 11:59 | XMS_ITS | Encounter Summary ---
Author Organization [employer] Address 75 [facility] 7t h Floor [place] [id number] Care Team Providers Care Filteration Operator Name Role Phone Sariah Vickers Primary Care Provider [phone] Yuri Pierre PharmD Unavailable [phone] Basilio Hall MD Unavailable [phone] Ron Preciado MD Unavailable [phone] Encounter Details Date Type Department Care Team (Latest Contact Info) Description 05/15/2018 Abstract [facility] CONVERSIONS Dental, Provider, DDS Social [...] Description 01/11/2025 1:00 PM EST Office Visit [facility] MEDICINE [address] [place] [address] Sariah Vickers ANP [address] [place] [address] 02/03/2025 11:00 AM EST Medication Management [facility] MEDICINE [address] [place] [address] Yuri Pierre, PharmD [address] [place] [address] 04/04/2025 10:00 AM EST Telemedicine [facility] CHC MED & PEDS 505 [place] [address] Azeb Hall, RN 505 [place] [address] documented as of this encounter Visit Diagnoses Not on filedocumented in this encounter Care Teams Filteration Operator Relationship Specialty Start Date End Date Sariah Vickers ANP 230 [place] [address] PCP - General Family Medicine 09/23/19 Yuri Pierre, MikeD 230 [place] [address] Pharmacist Internal Medicine 05/05/24 Basilio Hall MD 596 [place] [address] Cardiology 05/17/24 Ron Preciado MD [address] [place] [address] Pulmonary Disease 05/17/24 documented as of this encounter
--- OUTSIDE RECORDS SUMMARY | 2025-01-10 11:59 | XMS_ITS | Encounter Summary ---
Author Organization [employer] Address 75 [facility] 7t [place] [address] Care Team Providers Care Branch Account Executive Name Role Phone Sariah Vickers Primary Care Provider Yuri Pierre PharmD Unavailable [phone] Basilio Hall MD Unavailable [phone] Ron Preciado MD Unavailable [phone] Encounter Details Date Type Department Care Team (Late Contact Info) Description 01/09/2022 Abstract [facility] ADULT DENTAL [address] [place] [address] Dental, Provider, DDS Social History Tobacco Use [...] Department Care Team (Late Contact Info) Description 01/11/2025 1:00 PM EST Office Visit [facility] MEDICINE [address] [place] [address] Sariah Vickers ANP [address] [place] [address] 02/03/2025 11:00 AM EST Medication Management [facility] MEDICINE [address] [place] [address] Yuri Pierre, PharmD [address] [place] [address] 04/04/2025 10:00 AM EST Telemedicine [facility] CHC MED & PEDS [address] [place] [address] Azeb Hall, RN [address] [place], [place] documented as of this encounter Procedures Procedure [...] on filedocumented in this encounter Care Teams Branch Account Executive Relationship Specialty Start Date End Date Vickers, Sariah, ANP 230 [place] [address] PCP - General Family Medicine 09/23/19 Yuri Pierre, Dileep 230 [place] [address] Pharmacist Internal Medicine 05/05/24 Basilio Hall MD 596 [place] [address] Cardiology 05/17/24 Ron Preciado MD [address] [place] [address] Pulmonary Disease 05/17/24 documented as of this encounter
--- OUTSIDE RECORDS SUMMARY | 2025-01-10 11:59 | XMS_ITS | Encounter Summary ---
Author Organization [employer] Address 75 [facility] 7t [place] [address] Care Team Providers Care Blood Coordinator Name Role Phone Sariah Vickers Primary Care Provider [phone] Yuri Pierre PharmD Unavailable [phone] Basilio Hall MD Unavailable [phone] Ron Preciado MD Unavailable [phone] Reason for Visit * Reason Comments Med Refill Patient [facility] hasn't finished her Medbox due to missing refill for medication Gabapetin . Encounter Details Date Type Department Care Team (Late st Contact Info) Description 10/03/2023 Refill [facility] 230 [place], [place] [phone] Sariah Vickers ANP 230 [place], [place] [phone] Chronic SI joint pain Social History Tobacco [...] the past 12 months, has t he [employer] gas, oil or water company threatened to [...] Description 01/11/2025 1:00 PM EST Office Visit [facility] MEDICINE [address] [place] [address] Sariah Vickers, ANP 230 [place] [address] 02/03/2025 11:00 AM EST Medication Management [facility] MEDICINE [address] [place] [address] Yuri Pierre, PharmD 230 [place] [address] 04/04/2025 10:00 AM EST Telemedicine [facility] CHC MED & PEDS 505 [place] [address] Azeb Hall, RN 505 [place] [address] documented as of this encounter Goals Goal Patient Goal Type Associated Problems Recent Progress Patient-Stated? Author Blood Pressure < 140/90 Blood Pressure 126/82(2024 11:16 AM EST) No Piers-Gambl e, Aida, PharmD Record Your Blood Sugar As Directed General No Piers-Gambl e, Aida, PharmD Hemoglobin A1c < 7 Result Component 6.6( 5 1:54 PM EDT) No Piers-Gambl e, Aida, PharmD documented as of this encounter Visit Diagnoses Diagnosis Chronic SI joint pain Disorders of sacrum documented in this encounter Additional Health Concerns Assessment Noted Time PHQ-9 Depression Total Score: 12 024 2:58 PM EDT documented as of this encounter Care Teams Blood Coordinator Relationship Specialty Start Date End Date Sariah Vickers ANP [address] [place] [address] PCP - General Family Medicine 09/23/19 Yuri Pierre, MikeD 230 [place] [address] Pharmacist Internal Medicine 05/05/24 Basilio Hall MD 596 [place] [address] Cardiology 05/17/24 Ron Preciado MD [address] [place] [address] Pulmonary Disease 05/17/24 documented as of this encounter
--- OUTSIDE RECORDS SUMMARY | 2025-01-10 11:59 | XMS_ITS | Encounter Summary ---
Author Organization [employer] Address [address] [place] [address] 7t [place] [address] Care Team Providers Care Electroplating Laborer Name Role Phone Sariah Vickers Primary Care Provider [phone] Yuri Pierre PharmD Unavailable [phone] Basilio Hall MD Unavailable [phone] Ron Preciado MD Unavailable [phone] Reason for Visit * Reason Onset Date Comments Nurse Triage 11/01/2022 Encounter Details Date Type Department Care Team (Late st Contact Info) Description 11/01/2022 Telephone [facility] MEDICINE 230 [place] [address] Sariah Vickers ANP 230 [place] [address] Nurse Triage Social History Tobacco Use Types [...] 11/01/2022 3:51 PM EDT Triage call with [place] Nursing Service Director [place] [id number] Pt reports blood sugars have been high [...] Description 01/11/2025 1:00 PM EST Office Visit [facility] MEDICINE [address] [place] [address] Sariah Vickers, ANP 230 [place] [address] 02/03/2025 11:00 AM EST Medication Management [facility] MEDICINE [address] [place] [address] Yuri Pierre, PharmD 230 [place] [address] 04/04/2025 10:00 AM EST Telemedicine [facility] CHC MED & PEDS 505 [place] [address] Azeb Hall, RN 505 [place] [address] documented as of this encounter Goals Goal Patient Goal Type Associated Problems Recent Progress Patient-Stated? Author Blood Pressure < 140/90 Blood Pressure 126/82(2024 11:16 AM EST) No Phanis-Gambl Aida urbina, PharmD Record Your Blood Sugar As Directed General No Piers-Gambl Veronica urbinasa, PharmD Hemoglobin A1c < 7 Result Component 6.6( 1:54 PM EDT) No Piers-Gambl Aida urbina, PharmD documented as of this encounter Visit Diagnoses Not on filedocumented in this encounter Care Teams Electroplating Laborer Relationship Specialty Start Date End Date Sariah Vickers ANP 230 [place] [address] PCP - General Family Medicine 09/23/19 Yuri Pierre, MikeD 230 [place] [address] Pharmacist Internal Medicine 05/05/24 Basilio Hall MD 596 [place] [address] Cardiology 05/17/24 Ron Preciado MD [address] [place] [address] Pulmonary Disease 05/17/24 documented as of this encounter
--- OUTSIDE RECORDS SUMMARY | 2025-01-10 11:59 | XMS_ITS | Encounter Summary ---
Author Organization [employer] Address 75 [facility] 7t [place] [address] Care Team Providers Care Fringe Maker Name Role Phone Sariah Vickers Primary Care Provider [phone] Yuri Pierre PharmD Unavailable [phone] Basilio Hall MD Unavailable [phone] Ron Preciado MD Unavailable [phone] Encounter Details Date Type Department Care Team (Latest Contact Info) Description 04/14/2020 Abstract [facility] CONVERSIONS Dental, Provider, DDS Social History Tobacco [...] Description 01/11/2025 1:00 PM EST Office Visit [facility] MEDICINE [address] [place] [address] Sariah Vickers ANP [address] [place] [address] 02/03/2025 11:00 AM EST Medication Management [facility] MEDICINE [address] [place] [address] Yuri Pierre, PharmD [address] [place] [address] 04/04/2025 10:00 AM EST Telemedicine [facility] CHC MED & PEDS 505 [place] [address] Azeb Hall, RN 505 [place] [address] documented as of this encounter Visit Diagnoses Not on filedocumented in this encounter Care Teams Fringe Maker Relationship Specialty Start Date End Date Sariah Vickers ANP 230 [place] [address] PCP - General Family Medicine 09/23/19 Yuri Pierre, MikeD 230 [place] [address] Pharmacist Internal Medicine 05/05/24 Basilio Hall MD 596 [place] [address] Cardiology 05/17/24 Ron Preciado MD [address] [place] [address] Pulmonary Disease 05/17/24 documented as of this encounter
--- OUTSIDE RECORDS SUMMARY | 2025-01-10 11:59 | XMS_ITS | Encounter Summary ---
Author Organization [employer] Address 75 [facility] 7t [place] [address] Care Team Providers Care Hopper Attendant Name Role Phone Sariah Vickers Primary Care Provider [phone] Yuri Pierre PharmD Unavailable [phone] Basilio Hall MD Unavailable [phone] Ron Preciado MD Unavailable [phone] Reason for Visit * Reason Comments Med Refill Encounter Details Date Type Department Care Team (Late st Contact Info) Description 03/09/2024 Refill [facility] CHC MED & PEDS [address] [place] [address] Sariah Vickers ANP 230 [place] [address] Neck pain Social History Tobacco Use Types [...] Description 01/11/2025 1:00 PM EST Office Visit [facility] MEDICINE [address] [place] [address] Sariah Vickers ANP 230 [place] [address] 02/03/2025 11:00 AM EST Medication Management [facility] MEDICINE [address] [place] [address] Yuri Pierre, MikeD 230 [place] [address] 04/04/2025 10:00 AM EST Telemedicine [facility] CHC MED & PEDS 505 [place] [address] Azeb Hall, RN 505 [place] [address] documented as of this encounter Goals Goal Patient Goal Type Associated Problems Recent Progress Patient-Stated? Author Blood Pressure < 140/90 Blood Pressure 126/82(2024 11:16 AM EST) No Aida Ragland, PharmD Record [...] documented as of this encounter Care Teams Hopper Attendant Relationship Specialty Start Date End Date Sariah Vickers ANP 230 [place] [address] PCP - General Family Medicine 09/23/19 Yuri Pierre, MikeD 230 [place] [address] Pharmacist Internal Medicine 05/05/24 Basilio Hall MD [address] [place] [address] Cardiology 05/17/24 Ron Preciado MD [address] [place] [address] Pulmonary Disease 05/17/24 documented as of this encounter
--- OUTSIDE RECORDS SUMMARY | 2025-01-10 11:59 | XMS_ITS | Encounter Summary ---
Author Organization [employer] Address 75 [facility] 7t [place] [address] Care Team Providers Care Hypo Splasher Name Role Phone Sariah Vickers Primary Care Provider [phone] Yuri Pierre PharmD Unavailable [phone] Basilio Hall MD Unavailable [phone] Ron Preciado MD Unavailable [phone] Reason for Visit * Reason Comments Med Refill Encounter Details Date Type Department Care Team (Late st Contact Info) Description 10/03/2023 Refill [facility] 230 [place] [address] Sariah Vickers ANP 230 [place], [place] [phone] Chronic SI joint pain Social History Tobacco [...] Description 01/11/2025 1:00 PM EST Office Visit [facility] MEDICINE [address] [place] [address] Sariah Vickers ANP 230 [place] [address] 02/03/2025 11:00 AM EST Medication Management [facility] MEDICINE [address] [place] [address] Yuri Pierre, MikeD 230 [place] [address] 04/04/2025 10:00 AM EST Telemedicine [facility] CHC MED & PEDS 505 [place] [address] Azeb Hall, RN 505 [place] [address] documented as of this encounter Goals Goal Patient Goal Type Associated Problems Recent Progress Patient-Stated? Author Blood Pressure < 140/90 Blood Pressure 126/82(2024 11:16 AM EST) Aida Ernst, PharmD Record Your Blood [...] documented as of this encounter Care Teams Hypo Splasher Relationship Specialty Start Date End Date Sariah Vickers, KAYLEE 230 [place] [address] PCP - General Family Medicine 09/23/19 Yuri Pierre, MikeD 230 [place] [address] Pharmacist Internal Medicine 05/05/24 Basilio Hall MD [address] [place] [address] Cardiology 05/17/24 Ron Preciado MD [address] [place] [address] Pulmonary Disease 05/17/24 documented as of this encounter
--- OUTSIDE RECORDS SUMMARY | 2025-01-10 11:59 | XMS_ITS | Encounter Summary ---
Author Organization [employer] Address 75 [facility] 7t [place] [address] Care Team Providers Care Peer Counselor Name Role Phone Sariah Vickers Primary Care Provider [phone] Yuri Pierre PharmD Unavailable [phone] Basilio Hall MD Unavailable [phone] Ron Preciado MD Unavailable [phone] Reason for Visit * Reason Comments Med Refill Encounter Details Date Type Department Care Team (Late st Contact Info) Description 02/06/2022 Refill [facility] MEDICINE 230 [place] [address] Sariah Vickers ANP 230 [place] [address] Social History Tobacco Use Types Packs/Day Years [...] Description 01/11/2025 1:00 PM EST Office Visit [facility] MEDICINE 230 [place] [address] Sariah Vickers ANP 230 [place] [address] 02/03/2025 11:00 AM EST Medication Management [facility] MEDICINE 230 [place] [address] Yuri Pierre, PharmD 230 [place] [address] 04/04/2025 10:00 AM EST Telemedicine [facility] CHC MED & PEDS 505 [place] [address] Azeb Hall, MARTIN 505 [place] [address] documented as of this encounter Visit Diagnoses Not on filedocumented in this encounter Care Teams Peer Counselor Relationship Specialty Start Date End Date Sariah Vickers ANP [address] [place] [address] PCP - General Family Medicine 09/23/19 Yuri Pierre, PharmD [address] [place] [address] Pharmacist Internal Medicine 05/05/24 Basilio Hall MD 596 [place] [address] Cardiology 05/17/24 Ron Preciado MD [address] [place] [address] Pulmonary Disease 05/17/24 documented as of this encounter
--- OUTSIDE RECORDS SUMMARY | 2025-01-10 11:59 | XMS_ITS | Encounter Summary ---
Author Organization [employer] Address 75 [facility] 7t [place] [address] Care Team Providers Care Ethylene Plant Helper Name Role Phone Sariah Vickers Primary Care Provider [phone] Yuri Pierre PharmD Unavailable [phone] Basilio Hall MD Unavailable [phone] Ron Preciado MD Unavailable [phone] Reason for Visit * Reason Comments Med Refill Encounter Details Date Type Department Care Team (Late st Contact Info) Description 12/07/2024 Refill [facility] 230 [place] [address] Sariah Vickers ANP 230 [place] [address] Social History Tobacco Use Types Packs/Day Years [...] Description 01/11/2025 1:00 PM EST Office Visit [facility] MEDICINE [address] [place] [address] Sariah Vickers, ANP 230 [place] [address] 02/03/2025 11:00 AM EST Medication Management [facility] MEDICINE 230 [place] [address] Yuri Pierre, PharmD 230 [place] [address] 04/04/2025 10:00 AM EST Telemedicine [facility] CHC MED & PEDS 505 [place] [address] Azeb Hall, RN 505 [place] [address] documented as of this encounter Goals Goal [...] documented as of this encounter Care Teams Ethylene Plant Helper Relationship Specialty Start Date End Date Sariah Vickers ANP 230 [place] [address] PCP - General Family Medicine 09/23/19 Yuri Pierre, MikeD 230 [place] [address] Pharmacist Internal Medicine 05/05/24 Basilio Hall MD 596 [place] [address] Cardiology 05/17/24 Ron Preciado MD [address] [place] [address] Pulmonary Disease 05/17/24 documented as of this encounter
--- OUTSIDE RECORDS SUMMARY | 2025-01-10 11:59 | XMS_ITS | Encounter Summary ---
Author Organization [employer] Address 75 [facility] 7t [place] [address] Care Team Providers Care Enterprise Systems Administrator Name Role Phone Sariah Vickers Primary Care Provider [phone] Yuri Pierre PharmD Unavailable [phone] Basilio Hall MD Unavailable [phone] Ron Preciado MD Unavailable [phone] Reason for Visit * Reason Onset Date Comments Med Refill 02/04/2024 Encounter Details Date Type Department Care Team (Late st Contact Info) Description 02/04/2024 Telephone [facility] MEDICINE 230 [place] [address] Sariah Vickers ANP 230 [place], [place] [phone] Med Refill Social History Tobacco Use Types [...] 50 MG tablet To be sent to: [facility] - [place], [place] - [address] [place] [address] documented in this encounter Plan of Treatment Upcoming Encounters Date Type Department Care Team ([facility] st Contact Info) Description 01/11/2025 1:00 PM EST Office Visit [facility] MEDICINE [address] [place] [address] Sariah Vickers, KAYLEE 230 [place] [address] 02/03/2025 11:00 AM EST Medication Management [facility] MEDICINE [address] [place] [address] Yuri Pierre, PharmD 230 [place] [address] 04/04/2025 10:00 AM EST Telemedicine [facility] CHC MED & PEDS 505 [place] [address] Azeb Hall, RN 505 [place] [address] documented as of this encounter Goals Goal [...] documented as of this encounter Care Teams Enterprise Systems Administrator Relationship Specialty Start Date End Date Sariah Vickers ANP 230 [place] [address] PCP - General Family Medicine 09/23/19 Yuri Pierre, Dileep 230 [place] [address] Pharmacist Internal Medicine 05/05/24 Basilio Hall MD [address] [place] [address] Cardiology 05/17/24 Ron Preciado MD [address] [place] [address] Pulmonary Disease 05/17/24 documented as of this encounter
--- OUTSIDE RECORDS SUMMARY | 2025-01-10 11:59 | XMS_ITS | Encounter Summary ---
Author Organization [employer] Address 75 [facility] 7t [place] [address] Care Team Providers Care Ledge Man Name Role Phone Sariah Vickers Primary Care Provider [phone] Yuri Pierre PharmD Unavailable [phone] Basilio Hall MD Unavailable [phone] Ron Preciado MD Unavailable [phone] Reason for Visit * Reason Comments Med Refill Encounter Details Date Type Department Care Team (Late st Contact Info) Description 10/03/2023 Refill [facility] 230 [place] [address] Sariah Vickers ANP 230 [place], [place] [phone] Chronic SI joint pain Social History Tobacco [...] Description 01/11/2025 1:00 PM EST Office Visit [facility] MEDICINE [address] [place] [address] Sariah Vickers ANP 230 [place] [address] 02/03/2025 11:00 AM EST Medication Management [facility] MEDICINE [address] [place] [address] Yuri Pierre, MikeD 230 [place] [address] 04/04/2025 10:00 AM EST Telemedicine [facility] CHC MED & PEDS 505 [place] [address] Azeb Hall, RN 505 [place] [address] documented as of this encounter Goals Goal [...] documented as of this encounter Care Teams Ledge Man Relationship Specialty Start Date End Date Sariah Vickers, KAYLEE 230 [place] [address] PCP - General Family Medicine 09/23/19 Yuri Pierre, MikeD 230 [place] [address] Pharmacist Internal Medicine 05/05/24 Basilio Hall MD [address] [place] [address] Cardiology 05/17/24 Ron Preciado MD [address] [place] [address] Pulmonary Disease 05/17/24 documented as of this encounter
--- OUTSIDE RECORDS SUMMARY | 2025-01-10 11:59 | XMS_ITS | Encounter Summary ---
Author Organization [employer] Address 75 [facility] 7t [place] [address] Care Team Providers Care Nursing Agency Manager Name Role Phone Sariah Vickers Primary Care Provider [phone] Yuri Pierre PharmD Unavailable [phone] Basilio Hall MD Unavailable [phone] Ron Preciado MD Unavailable [phone] Encounter Details Date Type Department Care Team (Late st Contact Info) Description 11/23/[address] [facility] MEDICINE 230 [place] [address] Sariah Vickers ANP 230 [place] [address] Social History Tobacco Use Types Packs/Day Years [...] Description 01/11/2025 1:00 PM EST Office [address] [facility] MEDICINE [address] [place] [address] Sariah Vickers, ANP 230 [place] [address] 02/03/2025 11:00 AM EST Medication Management [facility] MED[facility] [address] [place] [address] Yuri Pierre, MikeD 230 [place] [address] 04/04/2025 10:[address] [facility] MED [facility]EDS 505 [place] [address] Azeb Hall, MARTIN 505 [place] [address] documented as of this encounter Goals Goal [...] documented as of this encounter Care Teams Nursing Agency Manager Relationship Specialty Start Date End Date Sariah Vickers, KAYLEE 230 [place] [address] PCP - General Family Medicine 09/23/19 Yuri Pierre, MikeD [address] [place] [address] Pharmacist Internal Medicine 05/05/24 Basilio Hall MD 596 [place] [address] Cardiology 05/17/24 Ron Preciado MD [address] [place] [address] Pulmonary Disease 05/17/24 documented as of this encounter
--- OUTSIDE RECORDS SUMMARY | 2025-01-10 11:59 | XMS_ITS | Encounter Summary ---
Author Organization [employer] Address 75 [facility] 7t [place] [address] Care Team Providers Care Facility Administrator Name Role Phone Sariah Vickers Primary Care Provider [phone] Yuri Pierre PharmD Unavailable [phone] Basilio Hall MD Unavailable [phone] Ron Preciado MD Unavailable [phone] Reason for Visit * Reason Onset Date Comments Durable Medical Equipment 03/15/2022 Encounter Details Date Type Department Care Team (Late st Contact Info) Description 03/15/2022 Telephone [facility] MEDICINE [address] [place] [address] Sariah Vickers ANP 230 [place] [address] Durable Medical Equipment Social History Tobacco Use [...] Description 01/11/2025 1:00 PM EST Office Visit [facility] MEDICINE [address] [place] [address] Sariah Vickers ANP 230 [place] [address] 02/03/2025 11:00 AM EST Medication Management [facility] MEDICINE [address] [place] [address] Yuri Pierre, PharmD [address] [place] [address] 04/04/2025 10:00 AM EST Telemedicine [facility] MED & PEDS 505 [place] [address] Azeb Hall, RN 505 [place] [address] documented as of this encounter Visit Diagnoses Not on filedocumented in this encounter Care Teams Facility Administrator Relationship Specialty Start Date End Date Sariah Vickers ANP [address] [place] [address] PCP - General Family Medicine 09/23/19 Yuri Pierre, PharmD [address] [place] [address] Pharmacist Internal Medicine 05/05/24 Basilio Hall MD 596 [place] [address] Cardiology 05/17/24 Ron Preciado MD [address] [place] [address] Pulmonary Disease 05/17/24 documented as of this encounter
--- OUTSIDE RECORDS SUMMARY | 2025-01-10 11:59 | XMS_ITS | Encounter Summary ---
Author Organization [employer] Address 75 [facility] 7t [place] [address] Care Team Providers Care Health Information Technologist Name Role Phone Sariah Vickers Primary Care Provider [phone] Yuri Pierre PharmD Unavailable [phone] Basilio Hall MD Unavailable [phone] Ron Preciado MD Unavailable [phone] Encounter Details Date Type Department Care Team (Latest Contact Info) Description 06/20/[address] [facility] CONVERSIONS Dental, Provider, DDS Social [...] Description 01/11/2025 1:00 PM EST Office Visit [facility] MEDICINE [address] [place] [address] Sariah Vickers ANP [address] [place] [address] 02/03/2025 11:00 AM EST Medication Management [facility] MEDICINE [address] [place] [address] Yuri Pierre, PharmD [address] [place] [address] 04/04/2025 10:00 AM EST Telemedicine [facility] CHC MED & PEDS 505 [place] [address] Azeb Hall, RN 505 [place] [address] documented as of this encounter Visit Diagnoses Not on filedocumented in this encounter Care Teams Health Information Technologist Relationship Specialty Start Date End Date Sariah Vickers ANP 230 [place] [address] PCP - General Family Medicine 09/23/19 Yuri Pierre, MikeD 230 [place] [address] Pharmacist Internal Medicine 05/05/24 Basilio Hall MD 596 [place] [address] Cardiology 05/17/24 Ron Preciado MD [address] [place] [address] Pulmonary Disease 05/17/24 documented as of this encounter
--- OUTSIDE RECORDS SUMMARY | 2025-01-10 11:59 | XMS_ITS | Encounter Summary ---
Author Organization [employer] Address 75 [facility] 7t [place] [address] Care Team Providers Care Extension Service Supervisor Name Role Phone Sariah Vickers Primary Care Provider [phone] Yuri Pierre PharmD Unavailable [phone] Basilio Hall MD Unavailable [phone] Ron Preciado MD Unavailable [phone] Reason for Visit * Reason Comments Med Refill Encounter Details Date Type Department Care Team (Late st Contact Info) Description 09/13/2022 Refill [facility] CHC MED & PEDS [address] [place] [address] Sariah Vickers ANP 230 [place] [address] Severe persistent allergic asthma without complication Social [...] 1:00 PM EST Office Visit [facility] MEDICINE [address] [place] [address] Sariah Vickers ANP 230 [place] [address] 02/03/2025 11:00 AM EST Medication Management [facility] MEDICINE 230 [place] [address] Yuri Pierre, Dileep 230 [place] [address] 04/04/2025 10:00 AM EST Telemedicine [facility] MED & PEDS 505 [place] [address] Azeb Hall, MARTIN 505 [place] [address] documented as of this encounter Visit Diagnoses Diagnosis Severe persistent allergic asthma without complication (HCC) documented in this encounter Care Teams Extension Service Supervisor Relationship Specialty Start Date End Date Sariah Vickers ANP [address] [place] [address] PCP - General Family Medicine 09/23/19 Yuri Pierre, PharmD [address] [place] [address] Pharmacist Internal Medicine 05/05/24 Basilio Hall MD 596 [place] [address] Cardiology 05/17/24 Ron Preciado MD [address] [place] [address] Pulmonary Disease 05/17/24 documented as of this encounter
--- OUTSIDE RECORDS SUMMARY | 2025-01-10 11:59 | XMS_ITS | Encounter Summary ---
Author Organization [email or web address] Address 75 [facility] 7t [place] [address] Care Team Providers Care Cancer Spec Name Role Phone Sariah Vickers Primary Care Provider [phone] Yuri Pierre PharmD Unavailable [phone] Basilio Hall MD Unavailable [phone] Ron Preciado MD Unavailable [phone] Reason for Visit * Reason Comments Med Refill Encounter Details Date Type Department Care Team (Late st Contact Info) Description 03/26/2022 Refill [facility] MEDICINE 230 [place] [address] Sariah Vickers ANP 230 [place] [address] Social History Tobacco Use Types Packs/Day Years [...] Description 01/11/2025 1:00 PM EST Office Visit [facility] MEDICINE 230 [place] [address] Sariah Vickers ANP 230 [place] [address] 02/03/2025 11:00 AM EST Medication Management [facility] MEDICINE 230 [place] [address] Yuri Pierre, PharmD 230 [place] [address] 04/04/2025 10:00 AM EST Telemedicine [facility] CHC MED & PEDS 505 [place] [address] Azeb Hall, MARTIN 505 [place] [address] documented as of this encounter Visit Diagnoses Not on filedocumented in this encounter Care Teams Cancer Spec Relationship Specialty Start Date End Date Sariah Vickers ANP [address] [place] [address] PCP - General Family Medicine 09/23/19 Yuri Pierre, PharmD [address] [place] [address] Pharmacist Internal Medicine 05/05/24 Basilio Hall MD 596 [place] [address] Cardiology 05/17/24 Ron Preciado MD [address] [place] [address] Pulmonary Disease 05/17/24 documented as of this encounter
--- OUTSIDE RECORDS SUMMARY | 2025-01-10 11:59 | XMS_ITS | Encounter Summary ---
Author Organization [employer] Address 75 [facility] 7t [place] [address] Care Team Providers Care Sole Skiver Name Role Phone Sariah Vickers Primary Care Provider [phone] Yuri Pierre PharmD Unavailable [phone] Basilio Hall MD Unavailable [phone] Ron Preciado MD Unavailable [phone] Reason for Visit * Reason Comments Med Refill Encounter Details Date Type Department Care Team (Late st Contact Info) Description 03/03/2022 Refill [facility] MEDICINE 230 [place] [address] Sariah Vickers ANP 230 [place] [address] Social History Tobacco Use Types Packs/Day Years [...] Description 01/11/2025 1:00 PM EST Office Visit [facility] MEDICINE [address] [place] [address] Sariah Vickers ANP [address] [place] [address] 02/03/2025 11:00 AM EST Medication Management [facility] MEDICINE [address] [place] [address] Yuri Pierre, Dileep [address] [place] [address] 04/04/2025 10:00 AM EST Telemedicine [facility] CHC MED & PEDS 505 [place] [address] Azeb Hall, MARTIN 505 [place] [address] documented as of this encounter Visit Diagnoses Not on filedocumented in this encounter Care Teams Sole Skiver Relationship Specialty Start Date End Date Sariah Vickers ANP [address] [place] [address] PCP - General Family Medicine 09/23/19 Yuri Pierre, PharmD [address] [place] [address] Pharmacist Internal Medicine 05/05/24 Basilio Hall MD 596 [place] [address] Cardiology 05/17/24 Ron Preciado MD [address] [place] [address] Pulmonary Disease 05/17/24 documented as of this encounter
--- OUTSIDE RECORDS SUMMARY | 2025-01-10 11:59 | XMS_ITS | Encounter Summary ---
Author Organization [employer] Address 75 [facility] 7t [place] [address] Care Team Providers Care Software Quality Specialist Name Role Phone Sariah Vickers Primary Care Provider Yuri Pierre PharmD Unavailable [phone] Basilio Hall MD Unavailable [phone] Ron Preciado MD Unavailable [phone] Reason for Visit * Reason Comments Med Refill Encounter Details Date Type Department Care Team (Late st Contact Info) Description 12/02/2024 Refill [facility] CHC MED & PEDS [address] [place] [address] Sariah Vickers ANP 230 [place] [address] Type 2 diabetes mellitus with diabetic neuropathy, [...] the past 12 months, has t he [employer] gas, oil or water company threatened to [...] Description 01/11/2025 1:00 PM EST Office Visit [facility] MEDICINE [address] [place] [address] Sariah Vickers ANP 230 [place] [address] 02/03/2025 11:00 AM EST Medication Management [facility] MEDICINE 230 [place] [address] Yuri Pierre, PharmD 230 [place] [address] 04/04/2025 10:00 AM EST Telemedicine [facility] CHC MED & PEDS 505 [place] [address] Azeb Hall, RN 505 [place] [address] documented as of this encounter Goals Goal [...] of this encounter Care Teams Software Quality Specialist Relationship Specialty Start Date End Date Sariah Vickers ANP 230 [place] [address] PCP - General Family Medicine 09/23/19 Yuri Pierre, Dileep [address] [place] [address] Pharmacist Internal Medicine 05/05/24 Basilio Hall MD 596 [place] [address] Cardiology 05/17/24 Ron Preciado MD [address] [place] [address] Pulmonary Disease 05/17/24 documented as of this encounter
--- OUTSIDE RECORDS SUMMARY | 2025-01-10 11:59 | XMS_ITS | Encounter Summary ---
Author Organization [employer] Address 75 [facility] 7t [place] [address] Care Team Providers Care Retail Seasonal Specialist Name Role Phone Sariah Vickers Primary Care Provider [phone] Yuri Pierre PharmD Unavailable [phone] Basilio Hall MD Unavailable [phone] Ron Preciado MD Unavailable [phone] Reason for Visit * Reason Onset Date Comments Med Refill 09/18/2023 Encounter Details Date Type Department Care Team (Late st Contact Info) Description 09/18/2023 Telephone [facility] MEDICINE 230 [place], [place] [phone] Sariah Vickers ANP 230 [place], [place] [phone] Med Refill Social History Tobacco Use Types [...] refill : Tramadol To be sent to: [facility] - [place], [place] - [address] [place] [address] documented in this encounter Plan of Treatment Upcoming Encounters Date Type Department Care Team ([facility] st Contact Info) Description 01/11/2025 1:00 PM EST Office Visit [facility] MEDICINE [address] [place] [address] Sariah Vickers, ANP 230 [place] [address] 02/03/2025 11:00 AM EST Medication Management [facility] MEDICINE [address] [place] [address] Yuri Pierre, PharmD 230 [place] [address] 04/04/2025 10:00 AM EST Telemedicine [facility] MED [facility]EDS [address] [place] [address] Azeb Hall, RN 505 [place] [address] documented as of this encounter Goals Goal [...] as of this encounter Care Teams Retail Seasonal Specialist Relationship Specialty Start Date End Date Sariah Vickers ANP 230 [place] [address] PCP - General Family Medicine 09/23/19 Yuri Pierre, MikeD 230 [place] [address] Pharmacist Internal Medicine 05/05/24 Basilio Hall MD 596 [place] [address] Cardiology 05/17/24 Ron Preciado MD [address] [place] [address] Pulmonary Disease 05/17/24 documented as of this encounter
--- OUTSIDE RECORDS SUMMARY | 2025-01-10 12:00 | XMS_ITS | Encounter Summary ---
Author Organization [employer] Address 75 [facility] 7t [place] [address] Care Team Providers Care Head Of Partner Development Name Role Phone Sariah Vickers Primary Care Provider [phone] Yuri Pierre PharmD Unavailable [phone] Basilio Hall MD Unavailable [phone] Ron Preciado MD Unavailable [phone] Reason for Visit * Reason Comments Med Refill Encounter Details Date Type Department Care Team (Late st Contact Info) Description 01/06/2024 Refill [facility] CHC MED & PEDS [address] [place] [address] Sariah Vickers ANP 230 [place] [address] Cervicalgia Social History Tobacco Use Types Packs/Day [...] 1:00 PM EST Office Visit [facility] MEDICINE [address] [place] [address] Sariah Vickers ANP 230 [place] [address] 02/03/2025 11:00 AM EST Medication Management [facility] MEDICINE [address] [place] [address] Yuri Pierre, MikeD 230 [place] [address] 04/04/2025 10:00 AM EST Telemedicine [facility] CH[facility] MED & PEDS 505 [place] [address] Azeb Hall, RN 505 [place] [address] documented as of this encounter Goals Goal [...] as of this encounter Care Teams Head Of Partner Development Relationship Specialty Start Date End Date Sariah Vickers ANP 230 [place] [address] PCP - General Family Medicine 09/23/19 Yuri Pierre, MikeD [address] [place] [address] Pharmacist Internal Medicine 05/05/24 Basilio Hall MD 596 [place] [address] Cardiology 05/17/24 Ron Preciado MD [address] [place] [address] Pulmonary Disease 05/17/24 documented as of this encounter
--- OUTSIDE RECORDS SUMMARY | 2025-01-10 12:00 | XMS_ITS | Encounter Summary ---
Author Organization [employer] Address 75 [facility] 7t [place] [address] Care Team Providers Care Rivet Maker Name Role Phone Sariah Vickers Primary Care Provider [phone] Yuri Pierre PharmD Unavailable [phone] Basilio Hall MD Unavailable [phone] Ron Preciado MD Unavailable [phone] Reason for Visit * Reason Comments Med Refill Encounter Details Date Type Department Care Team (Late st Contact Info) Description 01/04/2024 Refill [facility] CHC MED & PEDS [address] [place] [address] Sariah Vickers ANP 230 [place] [address] Cervicalgia Social History Tobacco Use Types Packs/Day [...] Description 01/11/2025 1:00 PM EST Office Visit [facility] MEDICINE [address] [place] [address] Sariah Vickers ANP 230 [place] [address] 02/03/2025 11:00 AM EST Medication Management [facility] MEDICINE [address] [place] [address] Yuri Pierre, MikeD 230 [place] [address] 04/04/2025 10:00 AM EST Telemedicine [facility] CHC MED & PEDS 505 [place] [address] Azeb Hall, RN 505 [place] [address] documented as of this encounter Goals Goal Patient Goal Type Associated Problems Recent Progress Patient-Stated? Author Blood Pressure < 140/90 Blood Pressure 126/82(2024 11:16 AM EST) No Aida Ragland, PharmD Record Your Blood Sugar As Directed General No Aida Ragland, PharmBear Hemoglobin A1c < 7 Result Component 6.6( 5 1:54 PM EDT) No Adia Ragland PharmD documented as of this encounter Visit Diagnoses Diagnosis Cervicalgia documented in this encounter Additional Health Concerns Assessment Noted Time PHQ-9 Depression Total Score: 12 024 2:58 PM EDT documented as of this encounter Care Teams Rivet Maker Relationship Specialty Start Date End Date Sariah Vickers ANP 230 [place] [address] PCP - General Family Medicine 09/23/19 Yuri Pierre, MikeD [address] [place] [address] Pharmacist Internal Medicine 05/05/24 Basilio Hall MD 596 [place] [address] Cardiology 05/17/24 Ron Preciado MD [address] [place] [address] Pulmonary Disease 05/17/24 documented as of this encounter
--- OUTSIDE RECORDS SUMMARY | 2025-01-10 12:00 | XMS_ITS | Encounter Summary ---
Author Organization [employer] Address 75 [facility] 7t [place] [address] Care Team Providers Care Borough Coordinator Name Role Phone aSriah Vickers Primary Care Provider [phone] Yuri Pierre PharmD Unavailable [phone] Basilio Hall MD Unavailable [phone] Ron Preciado MD Unavailable [phone] Reason for Visit * Reason Comments Med Refill Encounter Details Date Type Department Care Team (Late st Contact Info) Description 10/24/2023 Refill [facility] MEDICINE 230 [place] [address] Sariah Vickers ANP 230 [place] [address] Neck pain Social History Tobacco Use Types [...] [facility] [address] [place] [address] Sariah Vickers, ANP 230 [place] [address] 02/03/2025 11:00 AM EST Medication Management [facility] MEDICINE [address] [place] [address] Yuri Pierre, MikeD [address] [place] [address] 04/04/2025 10:00 AM EST Telemedicine [facility] CHC MED & PEDS 505 [place] [address] Azeb Hall, MARTIN 505 [place] [address] documented as of this encounter Goals Goal [...] documented as of this encounter Care Teams Borough Coordinator Relationship Specialty Start Date End Date Sariah Vickers ANP [address] [place] [address] PCP - General Family Medicine 09/23/19 Yuri Pierre, MikeD [address] [place] [address] Pharmacist Internal Medicine 05/05/24 Basilio Hall MD [address] [place] [address] Cardiology 05/17/24 Ron Preciado MD [address] [place] [address] Pulmonary Disease 05/17/24 documented as of this encounter
--- OUTSIDE RECORDS SUMMARY | 2025-01-10 12:00 | XMS_ITS | Clinical Summary ---
Author Organization [employer] Address [address] [facility] 7[address] [place] [address] Care Team Providers Care Computer Systems Software Architect Name Role Phone Anthony Ruiz KAYLEE Primary Care Provider [phone] Yuri Pierre PharmD Unavailable [phone] Basilio Hall MD Unavailable [phone] Ron Preciado MD Unavailable [phone] Allergies Active Allergy Reactions Criticality Noted [...] the morning. Active Lactobacillus-In ulin ([facility] [email or web address] [facility]) capsule 023 Active Xolair 150 MG/ML [...] each 5 03/31/2 025 Active Continuous Glucose Weaver Hand Loom (FreeStyle Jalil 3 Waverly) device 1 each Once per day. Use [...] DAILY IN THE MORNING 16 g 3 12/31/19 25 2:36 PM EST Active potassium chloride CR (Klor-Con M20) 20 [...] neuropathy, with long-term current use of insulin ([facility]) USE 1 SPRAY (3MG) IN ONE NOSTRIL FOR A PATIENT WITH SEVERE HYPOGLYCEMIA WHO IS NOT RESPONSIVE AND UNABLE SELF-TREAT WITH GLUCOSE. AFTERWARDS TURN ON SIDE. MAY REPEAT IN 15MINUTES IF PATIENT DOES NOT RESPOND. 2 each 1 025 Active enalapril (Vasotec) 20 MG tabletIndication [...] nebulizer solutionIndicati ons:Severe persistent asthma without complication ([facility]) INHALE 1 AMPULE USING A NEBULIZER EVERY 6 HOURS NEEDED 90 mL 5 025 Active TRUEplus Glucose 4 g chewable tabletIndication s:Type 2 diabetes mellitus with hyperlipidemia ([facility]) CHEW 4 TABLETS NEEDED FOR low blood sugar (LESS THAN 70mg/dL) 50 tablet 12 01/07/20 25 1:20 PM EST 025 Active acetaminophen (Tylenol) 325 MG tabletIndication [...] pen-injectorIndi cations:Type 2 diabetes mellitus with hyperlipidemia ([facility]) Inject 0.25 mg under the skin 1 (one) time per week. 1 each Active Continuous Glucose Weaver Hand Loom (Dexcom G7 Weaver Hand Loom) deviceIndication s:Type 2 diabetes mellitus with hyperlipidemia (HCC) 1 each Once per day for 1 day. 1 each 01/06/20 12:10 PM EST 2024 Active Continuous Glucose Sensor (Dexcom G7 Sensor) miscIndications: Type 2 diabetes mellitus with hyperlipidemia (HCC) 1 each 3 times daily. Apply 1 sensor every 10 days 3 each 01/06/20 12:10 PM EST 2024 Active gabapentin (Neurontin) 400 MG capsuleIndicatio [...] LOW BLOOD SUGAR 112.5 g 2 Active amLODIPine (Norvasc) 10 MG tablet TAKE 1 TABLET BY MOUTH EVERY EVENING 90 tablet 1 2024 Discontinued(R eorder (will not trigger notification to Pharmacy)) montelukast (Singulair) 10 MG tablet TAKE 1 TABLET BY MOUTH EVERY EVENING 90 tablet 1 2024 Discontinued(R eorder (will not trigger notification to Pharmacy)) semaglutide (Ozempic) 2 MG/1.5ML solution pen-injectorIndi cations:Type 2 diabetes mellitus with hyperlipidemia (HCC) Inject 0.5 mg under the skin 1 (one) time per week. 1 each 2024 Discontinued(R eorder (will not trigger notification [...] LOW BLOOD SUGAR 112.5 g 2 025 2024 Discontinued Glutose 15 40 % gel oral gel TAKE 15 GRAMS BY MOUTH ONCE DAILY NEEDED FOR LOW BLOOD SUGAR 112.5 g 2 01/06/20 4:21 PM EST 2024 Discontinued Active Problems Problem Noted Date Diagnosed Date Vaginal bleeding 11/03/2024 Assessment & Plan (11/03/2024 12:59 PM EDT): Post menopausal bleeding in patient s/p hysterectomy X 1 episode On exam, source of bleeding most likely ectactic enlarged blood vessel of inner L labia Continue to monitor Apply Vaseline to area twice daily to seal bleeding vessel Will refer to insurance underwriter for followup if needed Return precautions for [...] is currently connected with MH services through [facility]. Pt needing additional support due to [...] family. She will continue services with [facility] for OP therapy and psychiatry services. clinician will be available if needed during next medical appointment. PLAN: (check all that apply) Continue with current services (defined as services in the past 12 months) . Pt is engaged with OP therapy and psychiatry services with [facility] @ [facility] [...] family. She will continue services with [facility] for OP therapy and psychiatry services. clinician will be available if needed during next medical appointment. PLAN: (check all that apply) Continue with current services (defined as services in the past 12 months) . 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 Sees [...] organization. Date Type Department Care Team Description 01/09/2025 Refill [facility] [address] [place], [place] [address] [address] Anthony Ruiz ANP Type 2 diabetes mellitus with hyperlipidemia (CMS/HCC) 01/07/2025 9:30 AM EST Clinical Support [facility] [place] [address] Azeb Hall RN Long-term current use of opiate analgesic (Primary Dx) 01/07/2025 Travel 01/05/2025 Refill [facility] [address] [place] [address] Anthony Ruiz ANP 12/27/2024 Travel 12/21/2024 Refill [facility] [address] Anthony Ruiz ANP 12/20/[address] [address] Anthony Ruiz ANP ER Follow-up 12/20/[address] [address] Anthony Ruiz ANP Chronic SI joint pain 12/18/2024 Orders Only GENERIC EXTERNAL DATA DEPARTMENT Provider, Generic External Data 12/17/2024 Refill [facility] [address] [place] [phone] Anthony Ruiz ANP Chronic SI joint pain 12/16/2024 2:20 PM EDT Office Visit [facility] [address] [place] [address] Samantha Kumar DO Type 2 diabetes mellitus with hyperlipidemia (CMS/HCC) (Primary Dx) 12/16/2024 Telephone [facility] [address] [place] [phone] Brittney Nava MD Triage 12/16/2024 Travel 12/15/2024 Orders Only [facility] External Provider, [facility] 12/15/2024 Telephone [facility] [address] [place] [address] Anthony Ruiz ANP Med Refill 12/13/2024 Refill [facility] [address] [place] [address] Anthony Ruiz ANP Neck pain; Cervicalgia 12/12/2024 Refill [facility] [address] [place] [address] Anthony Ruiz ANP Cervicalgia 12/10/2024 Refill [facility] [address] [place] [address] Anthony Ruiz ANP Type 2 diabetes mellitus with hyperlipidemia (HCC) 12/09/2024 Telephone [facility] [address] [place] [phone] Anthony Ruiz ANP Results 12/08/2024 Orders Only GENERIC EXTERNAL DATA DEPARTMENT Provider, Generic External Data [facility] [address] [address] Anthony Ruiz ANP 12/03/2024 10:20 AM EDT [facility] [address] [address] Jess Coyne MD Acute bronchitis, unspecified organism (Primary Dx); Severe persistent asthma without complication (HCC) 12/02/2024 Refill [facility] [address] [place] [address] Anthony Ruiz ANP Type 2 diabetes mellitus with diabetic neuropathy, with long-term current use of insulin (HCC) 12/01/2024 Refill [facility] [address] [place] [address] Debra Faye MD Chronic bilateral low back pain, unspecified whether sciatica present 11/24/2024 Refill [facility] [address] [place] [address] Anthony Ruiz ANP Essential hypertension; Severe persistent asthma without complication (HCC) 11/23/2024 Orders Only [facility] [address] [place] [phone] Anthony Ruiz ANP 11/19/2024 Refill [facility] [address] [place] [phone] Chava Presley MD 11/16/2024 Refill [facility] [address] [place] [address] Anthony Ruiz ANP Type 2 diabetes mellitus with diabetic neuropathy, with long-term current use of insulin (CMS/[facility]) 11/15/2024 Travel 11/14/2024 Refill [facility] [address] [place] [address] Anthony Ruiz ANP Cervicalgia 11/12/2024 Refill [facility] [address] [place] [address] Anthony Ruiz ANP Neck pain 11/11/2024 Refill [facility] [address] [place] [address] Yogesh Gomez DMD 11/10/2024 3:30 PM EDT Immunization [address] [address] Yohana Quinn RN Encounter for immunization 11/10/2024 Travel 11/09/2024 9:00 AM EDT Office Visit [facility] [address] [place] [phone] Chava Presley MD Type 2 diabetes mellitus with hyperlipidemia ([facility]) (Primary Dx) 11/09/2024 Telephone [facility] [address] [place] [address] Azeb Hall RN 11/09/2024 Travel 11/08/2024 Telephone [facility] [address] [place] [address] Anthony Ruiz ANP Nurse Triage 11/05/2024 2:30 PM EDT Office Visit [address] [address] Hallie Tapia MD Boils (Primary Dx) 11/05/2024 Travel 11/03/[address] [address] Anthony Ruiz ANP Results 11/01/2024 2:45 PM EDT Office Visit [address] [address] Reta Sue MD Vaginal bleeding (Primary Dx); Dietary counseling; Exercise counseling; Class 2 obesity without serious comorbidity with body mass index (BMI) of 35.0 to 35.9 in adult, unspecified obesity type; Vulvar itching; Constipation, unspecified constipation type; Hemorrhoids, unspecified hemorrhoid type 11/01/2024 Travel 10/29/2024 Refill [facility] [address] [place] [address] Anthony Ruiz ANP Neck pain 10/26/2024 Results Follow-Up [address] [address] Anthony Ruiz ANP Thyroid Peroxidase Antibodies, Cardiolipin Antibodies (IgA,IgG,IgM) 10/25/[address] [address] Anthony Ruiz ANP 10/23/[address] [address] Anthony Ruiz ANP 10/22/2024 Orders Only GENERIC EXTERNAL DATA DEPARTMENT Provider, Generic External Data 10/20/2024 Results Follow-Up [address] [address] Anthony Ruiz ANP Prothrombin Time-INR, C-reactive Protein, Amylase, Additional followed-up results: 7 10/19/2024 Refill [facility] [address] [place] [address] Anthony Ruiz ANP Cervicalgia 10/14/2024 1:30 PM EDT Office Visit [address] [address] Anthony Ruiz ANP Type 2 diabetes mellitus with hyperlipidemia (CMS/HCC) (CMS/HCC) (Primary Dx); Chronic pain of both knees; Chronic SI joint pain; Primary osteoarthritis of both knees; Essential hypertension; Long-term current use of opiate analgesic; OKEEFE (nonalcoholic steatohepatitis); Asthma-COPD overlap syndrome (CMS/HCC) 10/14/2024 Travel 10/13/2024 10:40 AM EDT Office Visit [facility] [address] [address] Chava Presley MD Essential hypertension (Primary Dx) [...] Sign Reading Time Taken Comments Blood Pressure 126/82 12/27/2024 11:16 AM EST Pulse 81 12/27/2024 11:16 AM EST Temperature 36.6 C (97.8 F) 12/16/2024 12:36 [...] EST Office Visit [facility] [address] [place] [phone] Anthony Ruiz, ANP [address] [place] [address] 02/03/2025 11:00 AM EST Medication Management [facility] [address] [place] [address] Yuri Pierre, PharmD [address] [place] [address] 04/04/2025 10:00 AM EST Telemedicine [facility] [address] [place] [address] Azeb Hall, RN [address] [place] [address] Health Maintenance Due Date Last Done Comments CT Colonography 1960 FIT DNA/Cologuard 1960 FIT 1960 FOBT 1960 Sigmoidoscopy 1960 Alcohol/Substance Use Screening 1972 Hepatitis A Vaccines (1 of 2 - Risk 2-dose series) 08/06/1979 Pap Smear 1981 Diabetes: Foot Exam 06/12/2023 06/11/2022, 06/11/2022, 06/11/2022, Additional history exists COVID-19 Vaccine ( season) 2024 08/04/2024, 11/19/2022, 11/29/2021, Additional history exists Diabetes: Urine Protein Screening [...] Aged 60 years or older Completed 03/26/2023 HIV Screening Completed 08/06/2024, 06/15/2024 Hepatitis C [...] Care Plan Patient has chronic kidney disease Azeb Mary RN Weekly blood pressure task Care Plan Weekly blood pressure task Azeb Mary RN Patient has chronic kidney disease Care Plan Patient has chronic kidney disease No Azeb Hall RN Procedures Procedure Name Priority Date/Time Associated Diagnosis Comments POCT FRANKLIN-14 URINE DRUG SCREEN Routine 01/07/2025 9:33 AM EST Long-term current use of opiate analgesic CT ABDOMEN PELVIS W CONTRAST Routine 12/18/2024 [...] WITH REFLEX Routine 10/22/2024 10:49 AM EDT LOHK-1-SMVWHOZBHUUD I ANTIBODIES (IGG, IGA, IGM) Routine 10/22/2024 10:49 AM EDT ACTIN (SMOOTH MUSCLE) ANTIBODY (IGG) Routine 10/22/2024 10:49 AM EDT CARDIOLIPIN AB (IGA,IGG,IGM) Routine 10/22/2024 10:49 AM EDT THYROID PEROXIDASE ANTIBODIES Routine 10/22/2024 10:49 AM EDT POCT GLYCATED HEMOGLOBIN, TOTAL Routine 10/14/2024 1:54 PM EDT Type 2 diabetes mellitus with hyperlipidemia (CMS/HCC) ([facility]/HCC) POCT GLUCOSE Routine 10/14/2024 1:52 PM EDT [...] PROTHROMBIN TIME-INR Routine 10/12/2024 2:10 PM EDT HEPATITIS C ANTIBODY ([place] DPH) Routine 08/06/2024 [...] - 01/07/2025 9:33 AM EST .UTOX cup Lot#[id number] Exp. 01/17/26 Internal Pass Control Anthony PAGE POINT OF CARE TEST ENTER/EDIT OR DERABLES Final Result * CT Abdomen Pelvis w/ Contrast (12/18/2024 9:02 AM EDT) Anatomical Region Laterality Modality Body, Pelvis, Abdomen Computed T omography 12/18/2024 9:02 AM EDT Narrative 12/18/2024 9:03 AM EDT [place] [address] CT Scan Report Signed Patient: Nuvia Fay MR #: [id number] : 1960 Acct:[id number] Age/Sex: 64 / F ADM Date: 12/18/24 Loc: HO.ED Attending Dr: Ordering Physician: Kourtney Jones MD Date of Service: 12/18/24 Procedure(s): CT abdomen pelvis w IV con Accession Number(s): [id number] cc: Kourtney Jones MD; ANTHONY RUIZ DJ INSTRUCTOR Report Number: [id number]: Total DLP = 609.00 mGy-cm Reason for [...] signed by Jasen Bliss MD in OV> 12/18/24 0902 DD/ 1 TD/TT: 12/18/24901 Netezza Developer: Procedure Note Donotuseinterpreter, Image - 12/18/[address] [address] [address] Scan Report Signed Patient: Nuvia Fay EMR #: [id number] : 1960cct:[id number] Age/Sex: 64 / FADM Date: 12/18/24 Loc: HO.ED Attending Dr: Ordering Physician: Kourtney Jones MD Date of Service: 12/18/24 Procedure(s): CT abdomen pelvis w IV con Accession Number(s): [id number] cc: Kourtney Jones MD; ANTHONY RUIZ NP Report Number: [id number]: Total DLP = 609.00 mGy-cm Reason for [...] in OV> 12/18/24901 DD/ 1 TD/TT: 12/18/24901 Netezza Developer: [facility] External Provider IMG CT PROCEDURES Edited Result - Final * (ABNORMAL) Urinalysis, Complete, with Reflex to Culture (12/18/2024 8:21 AM EDT) Color Urine Yellow [facility] Appearance Urine Clear [facility] PH 7.0 5.0 - 9.0 [facility] Glucose Urine UA Negative Negative mg/dL [facility] Urine Blood Negative Negative [facility] Specific [place] - Urine 1.025 1.005 - 1.025 [facility] Urine Protein Negative Neg-Trace mg/dL [facility] Urine Ketones Negative Negative mg/dL [facility] Nitrite Urine Negative Negative [facility] Leukocyte Esterase Urine Small (1+)(A) Negative [facility] RBC Urine 0-2 0 - 2 /HPF [facility] Urine WBC 0-5 0 - 5 /HPF [facility] Urine Squamous Epithelial Cell 0-2 0 - 2 /HPF [facility] Urine Bacteria None Seen None Seen [facility] Hyaline Casts, Urine 0-2 0 - 2 /LPF [facility] 12/18/2024 8:21 AM EDT 12/18/2024 8:26 AM EDT Narrative [facility] - 12/18/2024 8:45 AM EDT [id number], Clean Catch us Generic External Data Provider LAB URINE ORDERAB LES Final Result Performing Organization Address City/State/[facility] Co de Phone Number [facility] [address] [place] [phone] * XR Chest 1 View (12/18/2024 7:39 AM EDT) Anatomical Region Laterality Modality Chest Radiographic Griselda ging 12/18/2024 7:39 AM EDT Narrative 12/18/2024 7:42 AM EDT [address] [address] XRay Report Signed Patient: Nuvia Fay MR #: [id number] : 1960 Acct:[id number] Age/Sex: 64 / F ADM Date: 12/18/24 Loc: HO.ED Attending Dr: Ordering Physician: Kourtney Jones MD Date of Service: 12/18/24 Procedure(s): XR chest 1V Accession Number(s): [id number] cc: Kourtney Jones MD; ANTHONY RUIZ NP [...] OV> 12/18/24 0741 DD/ 8 TD/TT: 12/18/24738 Netezza Developer: Procedure Note Donotuseinterpreter, Image - 12/18/2024 [place] [address] XRay Report Signed Patient: Nuvia Fay EMR #: [id number] : 1960cct:[id number] Age/Sex: 64 / FADM Date: 12/18/24 Loc: HO.ED Attending Dr: Ordering Physician: Kourtney Jones MD Date of Service: 12/18/24 Procedure(s): XR chest 1V Accession Number(s): [id number] cc: Kourtney Jones MD; ANTHONY RUIZ NP [...] OV> 12/18/24 0741 DD/ 8 TD/TT: 12/18/24738 Netezza Developer: us [facility] External Provider IMG XR PROCEDURES Edited Result - Final * Culture, Urine, Routine (12/18/2024 12:00 AM EDT) Urine Urine specimen obtained by clean catch procedure / Unknown 12/18/2024 12/18/2024 Comment:UACC Narrative [facility] - 12/19/2024 12:44 PM EST Urine Culture Report Result Urine Culture 10,000 to 50,000 cfu/ml Urine Culture Mixed bacterial yady characteristic of Urine Culture urogenital contamination. Specimen Source: Urine clean catch Generic External Data Provider LAB MICROBIOLOGY - GENERAL ORDERABLES Final Result [facility] [address] [place] [phone] * POCT Glucose (12/16/2024 2:44 PM [...] PM EDT Narrative 12/15/2024 9:46 PM EDT [address] [address] Ultrasound Report Signed Patient: Nuvia Fay MR #: [id number] : 1960 Acct:[id number] Age/Sex: 64 / F ADM Date: 12/15/24 Loc: HO.US Attending Dr: Umm PERALTA Ordering Physician: Umm [place] Date of Service: 12/15/24 Procedure(s): US abdomen complete Accession Number(s): [id number] cc: Umm [place]; ANTHONY RUIZ NP Reason [...] in OV> 12/15/242144 DD/ 43 TD/TT: 12/15/242143 Netezza Developer: Procedure Note Donotuseinterpreter, Image - 12/15/2024 [place] [address] Ultrasound Report Signed Patient: Nuvia Fay EMR #: [id number] : 1960cct:[id number] Age/Sex: 64 / FADM Date: 12/15/24 Loc: HO.US Attending Dr: Umm PERALTA Ordering Physician: Umm Ell[place] Date of Service: 12/15/24 Procedure(s): US abdomen complete Accession Number(s): [id number] cc: Umm [place]; ANTHONY RUIZ NP Reason [...] in OV> 12/15/242144 DD/ 43 TD/TT: 12/15/242143 Netezza Developer: us [facility] External Provider IMG US PROCEDURES Edited Result - Final * XR Chest 2 Views (12/08/2024 2:21 PM EDT) Anatomical Region Laterality Modality Chest Radiographic Griselda ging 12/08/2024 2:21 PM EDT Narrative 12/08/2024 2:34 PM EDT [address] [address] XRay Report Signed Patient: Nuvia Fay MR #: [id number] : 1960 Acct:[id number] Age/Sex: 64 / F ADM Date: 12/08/24 Loc: HO.ED Attending Dr: Ordering Physician: Rosangela Ventura Date of Service: 12/08/24 Procedure(s): XR chest 2V Accession Number(s): [id number] cc: Rosangela Ventura; ANTHONY RUIZ NP Reason [...] 12/08/24 1431 DD/ 1421 TD/TT: 12/08/24 1428 Netezza Developer: Procedure Note Donotuseinterpreter, Image - 12/08/2024 [place] [address] XRay Report Signed Patient: Nuvia Fay EMR #: [id number] : 1960cct:[id number] Age/Sex: 64 / FADM Date: 12/08/24 Loc: .ED Attending Dr: Ordering Physician: Rosangela Ventura Date of Service: 12/08/24 Procedure(s): XR chest 2V Accession Number(s): [id number] cc: Rosangela Ventura; ANTHONY RUIZ NP Reason [...] 12/08/24 1431 DD/ 1421 TD/TT: 12/08/24 1428 Netezza Developer: [facility] External Provider IMG XR PROCEDURES Final Result * Influenza A B2 ID NOW (Bailey) (12/08/2024 2:09 PM EDT) IDNOW SERIAL# [id number] [facility] Influenza A Negative Negative [facility] Influenza B2 Negative Negative [facility] Influenza A B2 Note See Note [facility] Comment:The Bailey ID NOW In [...] LAB MICROBIOLOGY - GENERAL ORDERABLES Final Result [facility] [address] [place] [phone] * COVID-19 ID NOW (BAILEY) (12/08/2024 2:09 PM EDT) IDNOW SERIAL# [id number] [facility] COVID-19 TEST Negative Negative [facility] COVID-19 NOTE See Note [facility] Comment: Results are for the identification of SARS-CoV2 RNA. TheSARS-CoV2 RNA is generally detectable in respiratory samplesduring the acute phase of infection. Positive results areindicative of the presence of SARS-CoV-2 RNA; clinicalcorrelation with patient history and other diagnosticinformation is necessary to determine patient infectionstatus. Positive results do not rule out bacterial infectionor co- infection with other viruses.Testing facilities within the [facility] and itsterritories are required to report all [...] use by authorized laboratories.Testing performed on the [employer] network ID NOW utilizing NAAT. 12/08/2024 2:09 PM EDT 12/08/2024 2:13 PM EDT us Generic External Data Provider LAB MOLECULAR LILIAM GNOSTICS ORDERABLES Final Result [facility] [address] [place] [phone] * High Sensitivity Troponin I (12/08/2024 2:09 PM EDT) TROPONIN I HIGH SENSITIVITY <2.7 <3.5 - 17.0 ng/L [facility] Comment:The Bailey high sens itivity Troponin-I results should beused in conjunction with other diagnostic information suchas ECG, clinical observations and information, and patientsymptoms to aid in the diagnosis of NE. 12/08/2024 2:09 PM EDT 12/08/2024 2:13 PM EDT us Generic External Data Provider LAB BLOOD ORDERAB LES Final Result [facility] [address] [place] [phone] * (ABNORMAL) CBC auto differential (12/08/2024 2:09 PM EDT) White Blood Count 7.6 4.8 - 10.8 X10*3/uL [facility] Red Blood Count 4.67 4.20 - 5.50 X10*6/uL [facility] Hemoglobin 14.7 12.0 - 16.0 g/dl [facility] Hematocrit 44.2 37.0 - 47.0 % [facility] Mean Corpuscular Volume 94.6 80.0 - 98.0 fL [facility] Mean Corpuscular Hemoglobin 31.5 27.0 - 33.0 pg [facility] Mean Corpuscular HGB Conc 33.3 31.0 - 35.0 g/dl [facility] Red Cell Distribution Width 12.9 11.0 - 16.0 % [facility] Platelet Count 268 160 - 400 X10*3/uL [facility] Mean Platelet Volume 9.2(L) 9.4 - 12.3 fL [facility] Neutrophils Percent Auto 82.1(H) 45 - 73 % [facility] Imm Gran Pct Auto 0.3 0.0 - 0.4 % [facility] Lymphocytes Percent Auto 16.1(L) 20 - 40 % [facility] Monocytes Percent Auto 0.8(L) 2 - 11 % [facility] Eosinophils Percent Auto 0.3 0 - 4 % [facility] Basophils Percent Auto 0.4 0 - 2 % [facility] NRBC Pct Auto 0.0 0.0 - 0.2 /100WBC [facility] Neutrophils Absolute Auto 6.2 2.0 - 8.3 x10*3/uL [facility] Imm Gran Abs Auto 0.02 0.00 - 0.03 X10*3/uL [facility] Lymphocytes Absolute Auto 1.2 1.2 - 4.9 X10*3/uL [facility] Monocytes Absolute Auto 0.1 0.1 - 1.2 X10*3/uL [facility] Eosinophils Absolute Auto 0.0 0.0 - 0.4 X10*3/uL [facility] Basophils Absolute Auto 0.0 0.0 - 0.2 X10*3/uL [facility] NRBC Abs Auto 0.000 0.0 - 0.012 X10*3/uL [facility] 12/08/2024 2:09 PM EDT 12/08/2024 2:13 PM EDT Generic External Data Provider LAB BLOOD ORDERAB LES Final Result Performing Organization Address City/[facility]/ZIP Co de Phone Number [facility] [address] [place] [phone] * Magnesium (12/08/2024 2:09 PM EDT) Pathologist [facility] Magnesium 2.1 1.6 - 2.6 mg/dL [facility] 12/08/2024 2:09 PM EDT 12/08/2024 2:13 PM EDT Generic External Data Provider LAB BLOOD ORDERAB LES Final Result Performing Organization Address [facility]/ZIP Co de Phone Number [facility] [address] [place] [address] [phone] * (ABNORMAL) Comprehensive Metabolic Panel (12/08/2024 2:09 PM EDT) Pathologist [facility] Sodium 141 135 - 145 mmol/L [facility] Potassium 3.7 3.3 - 5.1 mmol/L [facility] Chloride 109(H) 96 - 108 mmol/L [facility] Carbon Dioxide 25 22 - 29 mmol/L [facility] Anion Gap 11(L) 12 - 20 [facility] Urea Nitrogen (BUN) 13 9 - 16 mg/dL [facility] Creatinine, Serum 0.90 0.5 - 1.4 mg/dL [facility] Creatinine Clr Calc Pharmacy 64.2 [facility] Comment:Provided height and weight: 152.4 cm,92.896 kg.eGFR (calculated from the MDRD study equation) and eCrCl(calculated from the Cockcroft-Gault equation) are based ondifferent parameters and may not yield comparable results.If eCrCl result is absurd, please check patient'sheight/weight. Estimated Glomerular Filt Rate >60 [facility] Comment:Chronic Kidney Disea se: Estimated GFR < 60 mL/min/1.96t9Tjzsuj Kidney Disease: Estimated GFR < 15 mL/min/1.73m2 Glucose 214(H) 60 - 115 mg/dL [facility] Calcium 9.8 8.4 - 10.2 mg/dL [facility] Bilirubin, Total 0.3 0.0 - 1.0 mg/dL [facility] Aspartate Amino Transferase 28 5 - 31 U/L [facility] Alanine Aminotransferase 16 0 - 31 U/L [facility] Total Protein 7.4 6.5 - 8.0 g/dL [facility] Albumin Level 4.2 3.5 - 5.0 g/dL [facility] Alkaline Phosphatase 101 39 - 117 U/L [facility] 12/08/2024 2:09 PM EDT 12/08/2024 2:13 PM EDT us Generic External Data Provider LAB BLOOD ORDERAB LES Final Result [facility] [address] [place] [address] [phone] * Bacterial Vaginosis Panel (11/01/2024 12:00 AM EDT) TRICHOMONAS VAGINALIS DETECTION BY PCR NOT DETECTED Not Detect [facility] BACTERIAL VAGINOSIS DETECTION BY PCR NEGATIVE Negative [facility] Comment:The BV organism targ ets [...] DETECTION BY PCR NOT DETECTED Not Detect [facility] Eufemia glab krusei PCR NOT DETECTED Not Detect [facility] Swab Vaginal structure / Unknown 11/01/2024 11/01/2024 us Reta Sue MD LAB MICROBIOLOGY - GENERAL ORD ERABLES Final Result [facility] [address] [place] [phone] * Uobl-6-Tydgivktpeyu I Antibodies (IgG, IgA, IgM) (10/22/2024 10:49 AM EDT) B2 Glycoprotein I IgG Antibody <2.0 <20.0 U/mL [facility] Comment:Value Interpretation ----- < 20.0 Antibody not detected> or = 20.0 Antibody detected B2 Glycoprotein I IgM Antibody <2.0 <20.0 U/mL [facility] Comment:Value Interpretation ----- < 20.0 Antibody not detected> or = 20.0 Antibody detected B2 Glycoprotein I IgA Antibody <2.0 <20.0 U/mL [facility] Comment: Value Interpretation----- < 20.0 Antibody not detected> or = 20.0 Antibody detectedThe antiphospholipid antibody syndrome (APS) is aclinical- pathologic correlation that includes aclinical event (e.g. arterial or venous thrombosis, morbidity) and persistent positiveantiphospholipid antibodies (IgM, IgG Cardiolipin sya8PWJ antibodies greater than the 99th percentile;or a [...] therapy or aging.For additional information, please refer tohttp://education.Wear My Tags/faq/KMV098(This link is being provided for informational/educational purposes only.)THIS TEST WAS PERFORMED AT:[employer] [id number] [place] [address]RTQPMXGDEAN CASAS MD,PHD 10/22/2024 10:4 9 AM EDT 10/22/2024 10:49 AM EDT Generic External Data Provider LAB BLOOD ORDERAB LES Final Result Performing Organization Address [facility]/ZIP Co de Phone Number [facility] [address] [place] [phone] * (ABNORMAL) Thyroid Peroxidase Antibodies (10/22/2024 10:49 AM EDT) Thyroid Peroxidase Antibodies >900(A) <9 IU/mL [facility] Comment:THIS TEST WAS PERFOR MED AT:[employer] [address] [address]JQMBBHERNAN WARREN MD 10/22/2024 10:4 9 AM EDT 10/22/2024 10:49 AM EDT us Generic External Data Provider LAB BLOOD ORDERAB LES Final Result Performing Organization Address [facility]/ZIP Co de Phone Number [facility] [address] [place] [phone] * (ABNORMAL) Actin (Smooth Muscle) Antibody (IgG) (10/22/2024 10:49 AM EDT) Only the most recent of2 resultswithin the time period is included. Smooth Muscle Antibody 47(A) <20 U [facility] Comment:Reference Range: <2 0 U: Negative>or=20 U: PositiveAntibodies recognizing actin are the main componentof smooth muscle antibodies associated with auto- immune liver disease. Actin antibodies are found inapproximately 75% of patients with autoimmunehepatitis (AIH) type 1, approximately 65% of patientswith autoimmune cholangitis, approximately 30% ofpatients with primary biliary cirrhosis andapproximately 2% of healthy controls. High values areclosely correlated with AIH type 1.THIS TEST WAS PERFORMED AT:[employer]/[address] [place] [address]LGAHCELDEAN CASAS MD,PHD 10/22/2024 10:4 9 AM EDT 10/22/2024 10:49 AM EDT us Generic External Data Provider LAB BLOOD ORDERAB LES Final Result [facility] [address] [place] [phone] * Lupus Anticoagulant Evaluation with Reflex (10/22/2024 10:49 AM EDT) [facility] Lupus Interpretation see note [facility] Comment:A Lupus Anticoagulan t is not detected.Reference Range: Not DetectedFor additional information, please refer tohttp://education.Wear My Tags/faq/ONO93d6(This link is being provided for informational/educational purposes only.)This interpretation is based on the following testresults. PTT (LAC) Screen 33 <=40 sec [facility] DRVVT Screen 35 <=45 sec [facility] Comment:THIS TEST WAS PERFOR MED AT:[employer]/[address] [place] [address]CRDELCRDEAN CASAS MD,PHD dRVVT Confirmation TNP [facility] dRVVT 1:1 Mix TNP [facility] DRVVT 1:1 Mix Interpretation [facility] Hexagonal Phase Neutralization TNP [facility] Thrombin Clotting Time [facility] 10/22/2024 10:4 9 AM EDT 10/22/2024 10:49 AM EDT us Generic External Data Provider LAB BLOOD ORDERAB LES Final Result [facility] [address] [place] [address] [phone] * Cardiolipin Antibodies (IgA,IgG,IgM) (10/22/2024 10:49 AM EDT) Cardiolipin Antibody (IgG) <2.0 GPL-U/mL [facility] Comment:Value Interpretation ----- < 20.0 Antibody not detected> or = 20.0 Antibody detected Cardiolipin Antibody (IgM) <2.0 MPL-U/mL [facility] Comment: Value Interpretation----- < 20.0 Antibody not detected> or = 20.0 Antibody detectedThe antiphospholipid antibody syndrome (APS) is aclinical- pathologic correlation that includes aclinical event (e.g. arterial or venous thrombosis, morbidity) and persistent positiveantiphospholipid antibodies (IgM, IgG Cardiolipin aqm4OKT antibodies greater than the 99th percentile; ora [...] therapy or aging.For additional information, please refer tohttp://education.Wear My Tags/faq/BJF194(This link is being provided for informational/educational purposes only.)THIS TEST WAS PERFORMED AT:[facility] [place] [address]FEZMTHERNAN WARREN MD 10/22/2024 10:4 9 AM EDT 10/22/2024 10:49 AM EDT Generic External Data Provider LAB BLOOD ORDERAB LES Final Result Performing Organization Address [facility] Co de Phone Number [facility] [address] [place] [phone] * (ABNORMAL) POCT HGB A1C (10/14/2024 1:54 PM EDT) Hemoglobin A1C 6.6(A) 4.0 - 5.7 % QC Media Lot # [id number] Lot# Expiration Date Blood 10/14/2024 1:54 PM EDT [facility] POINT OF CARE TEST ENTER/EDIT OR DERABLES Final Result * (ABNORMAL) TSH with Reflex to Free T4 (10/12/2024 2:10 PM EDT) TSH reflex Free T4 6.80(H) 0.32 - 4.0 uIU/mL [facility] 10/12/2024 2:10 PM EDT 10/12/2024 2:10 PM EDT Generic External Data Provider LAB BLOOD ORDERAB LES Final Result Performing Organization Address [facility] Co de Phone Number [facility] [address] [place] [phone] * Prothrombin Time-INR (10/12/2024 2:10 PM EDT) Prothrombin Time 10.9 10.9 - 12.4 SEC [facility] INTERNATIONAL NORM RATIO 1.0 0.9 - 1.1 [facility] Comment:INTERNATIONAL NORMAL IZED RATIO (INR) [...] LES Final Result Performing Organization Address City/[facility]/ZIP Co de Phone Number [facility] [address] [place] [phone] [phone] * C-reactive Protein (10/12/2024 2:10 PM EDT) [facility] C Reactive Protein 0.31 < or = 0.50 mg/dL [facility] 10/12/2024 2:10 PM EDT 10/12/2024 2:10 PM EDT Generic External Data Provider LAB BLOOD ORDERAB LES Final Result Performing Organization Address [facility] Co de Phone Number [facility] [address] [place] [address] [phone] * (ABNORMAL) REX Screen,IFA, with Reflex to Titer and Pattern (10/12/2024 2:10 PM EDT) [facility] Anti Nuclear Antibody Screen POSITIV E(A) NEGATIVE [facility] Comment:REX IFA is a first l ine screen for detecting thepresence of up to approximately 150 autoantibodies invarious autoimmune diseases. A positive REX IFA resultis suggestive of autoimmune disease and reflexes totiter and pattern. Further laboratory testing may beconsidered if clinically indicated.For additional information, please refer tohttp://education.Yurpy/faq/IME643(This link is being provided for informational/educational purposes only.)THIS TEST WAS PERFORMED AT:[facility] [place] [phone] WARREN MD REX Titer 1:1280( A) titer [facility] Comment:Reference Range <1:4 0 Negative 1:40-1:80 Low Antibody Level >1:80 Elevated Antibody Level REX Pattern Nuclear , Homogen eous(A) [facility] Comment:Homogeneous pattern is associated with systemic lupuserythematosus (SLE), drug-induced lupus and juvenileidiopathic arthritis.AC-1: HomogeneousInternational Consensus on REX Patterns(https://doi.org/10.1515/vlpb-8073-5310)THIS TEST WAS PERFORMED AT:[facility] [place] [address]- 2021HERNAN WARREN MD REX Titer 2 TNP [facility] REX Pattern 2 TNP [facility] REX TITER 3 TNP [facility] REX PATTERN 3 TNP [facility] 10/12/2024 2:10 PM EDT 10/12/2024 2:10 PM EDT Generic External Data Provider LAB BLOOD ORDERAB LES Final Result Performing Organization Address City/[facility]/ZIP Co de Phone Number [facility] [address] [place] [phone] * T4, Free (10/12/2024 2:10 PM EDT) Free T4 (Free Thyroxine) 0.99 0.71 - 1.85 ng/dL [facility] 10/12/2024 2:10 PM EDT 10/12/2024 2:10 PM EDT Generic External Data Provider LAB BLOOD ORDERAB LES Final Result Performing Organization Address [facility]/ZIP Co de Phone Number [facility] [address] [place] [phone] * Lipase (10/12/2024 2:10 PM EDT) Lipase 20 8 - 78 U/L [facility] 10/12/2024 2:10 PM EDT 10/12/2024 2:10 PM EDT us Generic External Data Provider LAB BLOOD ORDERAB LES Final Result Performing Organization Address [facility] Co de Phone Number [facility] [address] [place] [phone] * (ABNORMAL) Hemoglobin A1c (10/12/2024 2:10 PM EDT) Hemoglobin A1c 6.5(H) <6.0 % [facility] Comment:Hemoglobin A1C Refer ence Range Adults: 4.8 - 6.0 % Non diabetic: < 6.0 % Goal: < 7.0 %Additional Action Suggested: > 8.0 %Note: Hemoglobin A1c results are invalid for patients with abnormal amounts of HbF. Blood transfusions may impact the HbA1c concentration in the patient sample. Estimated Average Glucose 140 mg/dL [facility] Comment:eAG = Estimated ave rage glucose which is %A1C expressed asaverage glucose, using the formula of the T4E-VluuhekZnkpnhn Glucose study (ADAG), Diabetes Care, Vol.31,#8,Sep. 2007 10/12/2024 2:10 PM EDT 10/12/2024 2:10 PM EDT us Generic External Data Provider LAB BLOOD ORDERAB LES Final Result Performing Organization Address [facility] Co de Phone Number [facility] [address] [place] [phone] * Ferritin (10/12/2024 2:10 PM EDT) Ferritin 69 10 - 250 ng/mL [facility] 10/12/2024 2:10 PM EDT 10/12/2024 2:10 PM EDT us Generic External Data Provider LAB BLOOD ORDERAB LES Final Result Performing Organization Address [facility] Co de Phone Number [facility] [address] [place] [phone] * Amylase (10/12/2024 2:10 PM EDT) Amylase 36 28 - 100 U/L [facility] 10/12/2024 2:10 PM EDT 10/12/2024 2:10 PM EDT Generic External Data Provider LAB BLOOD ORDERAB LES Final Result [facility] [address] [place] [phone] * Hepatitis C Antibody ([facility]) (08/06/2024) Pathologist [facility] Hepatitis C Ab Nonreactive Blood 08/06/2024 Historical Provider MD LAB BLOOD ORDERABLES Kelsey l Result * HIV Ab/Ag ([facility]) (08/06/2024) Pathologist [facility] HIV Ag/Ab Nonreactive Blood 08/06/2024 Historical Provider MD LAB BLOOD ORDERABLES Kelsey l Result * (ABNORMAL) Lipid Panel, Standard (06/18/2024 10:18 AM EDT) Triglycerides 122 <150 mg/dL [facility] Comment:Desirable Triglyceri de: less than 150 mg/dLBorderline High Triglyceride 150-199 mg/dLHigh Triglyceride: 200-499 mg/dLVery High Triglyceride: greater than or equal to 5OO mg/dL Cholesterol 216(H) <200 mg/dL [facility] Comment:Desirable Cholestero l: less than 200 mg/dLBorderline High Cholesterol: 200-239 mg/dLHigh Cholesterol: greater than 239 mg/dL LDL Cholesterol Calculated 128(H) <100 mg/dL [facility] Comment:Desirable LDL: less than 100 mg/dLNear Optimal/Above Optimal LDL: 110- 129 mg/dLBorderline High LDL: 130-159 mg/dLHigh LDL: 160-189 mg/dLVery High LDL: greater than or equal to 190 mg/dL HDL Cholesterol 64 >40 mg/dL [facility] Comment:Desirable HDL: great er than 40 mg/dL Note: This HDL assay may give artificially low results in patients with liver disease. Blood Venous blood specimen / Unknown 06/18/2024 10:18 AM EDT 06/18/2024 11:08 AM EDT us Anthony Ruiz ANP LAB BLOOD ORDERABLES Final Resul t [facility] [address], [place] [phone] * BI Mammogram Screening Tomosynthesis Bilateral (04/12/2024 1:48 PM EST) Anatomical Region Laterality Modality Breast Bilateral Mammography 04/12/2024 1:48 PM EST Narrative 04/17/2024 12:38 PM EST [facility] [address] [place] [address] Mammography Report Signed Patient: Nuvia Fay MR #: [id number] : 1960 Acct:[id number] Age/Sex: 63 / F ADM Date: 04/12/24 Loc: HO.MAMMO Attending Dr: Monica Lozano CNM Ordering Physician: Monica Lozano CNM Results: 2Beni gn Findings Date of Service: 04/12/24 Follow Up: 1 Year From [facility] ina Mammogram Procedure(s): MM tomosynthesis screening BI Accession Number(s): [id number] cc: Monica Lozano CNM; ANTHONY RUIZ NP [...] 04/17/24 1235 DD/ 1348 TD/TT: 04/12/24 1405 [employer] Developer: Procedure Note Donotuseinterpreter, Image - 04/17/2024 [facility] [address] [place] [address] Mammography Report Signed Patient: Nuvia Fay EMR #: [id number] : 1960cct:[id number] Age/Sex: 63 / FADM Date: 04/12/24 Loc: HO.MAMMO Attending Dr: Monica Lozano CNM Ordering Physician: Monica Lozanoesults: 2Beni gn Findings Date of Service: 04/12/24Follow Up: 1 Year From Orig inal Mammogram Procedure(s): MM tomosynthesis screening BI Accession Number(s): [id number] cc: Monica Lozano CNM; ANTHONY RUIZ NP [...] 04/17/24 1235 DD/ 1348 TD/TT: 04/12/24 1405 [employer] Developer: [facility] External Provider IMG BI PROCEDURES Edited Result - Final * Albumin, Random Urine W/Creatinine (01/02/2024 8:44 AM EST) Creatinine, Urine 47.20 mg/dL [facility] Microalbumin Urine 7.0 mg/L [facility] Microalbum Creatinine Ratio Ur 14.8 <30 ug/mg cr [facility] Comment:Albumin/Creatinine R atio Reference Ranges: Normal: < 30 ug/mg creatinine Microalbuminuria: 30 - 300 ug/mg creatinineClinical Albuminuria: > 300 ug/mg creatinine Urine (Urine, Random) 01/02/2024 8:44 AM EST 01/02/2024 11:09 AM EST [facility] LAB URINE ORDERABLES Final Resul t [facility] [address] [place] [address] [phone] * (ABNORMAL) Hm Colonoscopy (12/27/2021) Colonoscopy Abnormal(A ) Normal Historical Provider HEALTH MAINTENANCE Final Result * HPV E6/E7 RFLX ALFRED 16 18/45 (05/09/2020 11:19 AM EDT) HPV mRNA E6/E7 rflx Not Detected Not Detected [facility] Comment: Methodology: Warehouse Director-Mediated Amplification This assay detects E6/E7 viral messenger RNA (mRNA) from 14 high-risk HPV types (16,18,31,33,35,39,45,51,52,56,58,59,66,68). The analytical performance characteristics of this assay have been determined by [employer]. The modifications have not been cleared or approved by the FDA. This assay has been validated pursuant to the CLIA regulations and is used for clinical purposes. For additional information, please refer to http://education.Wear My Tags/faq/LFO480l9 (This link if provided for information/ educational purposes only.) THIS TEST WAS PERFORMED AT: [facility] [address] [place] [address] [address] [address] HERNAN WARREN MD 05/09/2020 11:1 9 AM EDT us Yohana Lu HISTORICAL/NON ORDERABLE LABS Fi nal Result [facility] [address] [place] [address] from Last 3 Months or Most Recently Relevant to Health Maintenance Additional Health Concerns Active Problems Noted Date Diagnosed Date Help patients manage their type 2 diabetes 01/07 Weekly blood pressure task 01/07/2025 Help patients manage their type 2 diabetes 01/07 Patient has chronic kidney disease 01/07/2025 Weekly blood pressure task 01/07/2025 Patient has chronic kidney disease 01/07/2025 Insurance [facility] CARE < 65 DENTAL - [facility] Care Teams Computer Systems Software Architect Relationship Specialty Start Date End Date Anthony Ruiz ANP [address] [place], [place] PCP - General Family Medicine 09/23/19 Yuri Pierre, Dileep [address] [place], [place] Pharmacist Internal Medicine 05/05/24 Basilio Hall MD [address] [place] [address] Cardiology 05/17/24 Ron Preciado MD [address] [place] [phone] Pulmonary Disease 05/17/24
--- OUTSIDE RECORDS SUMMARY | 2025-01-10 12:00 | XMS_ITS | Encounter Summary ---
Author Organization [employer] Address [address] [facility] [address] [place] [address] Care Team Providers Care Electrical Line Mechanic Name Role Phone Sariah Vickers Primary Care Provider [phone] Yuri Pierre PharmD Unavailable [phone] Basilio Hall MD Unavailable [phone] Ron Preciado MD Unavailable [phone] Reason for Visit * Reason Comments Med Refill Encounter Details Date Type Department Care Team (Late st Contact Info) Description 06/17/2024 Refill [facility] [address] [place] [address] Sariah Vickers ANP [address] [place], [place] [phone] Neck pain Social History Tobacco Use Types [...] 01/11/2025 1:00 PM EST Office Visit [facility] [address] [place] [phone] Sariah Vickers ANP [address] [place] [address] 02/03/2025 11:00 AM EST Medication Management [facility] [address] [place] [phone] Yuri Pierre, MikeD [address] [place] [address] 04/04/2025 10:00 AM EST Telemedicine [facility] [address] [place] [address] Azeb Hall, RN [address] [place] [address] documented as of this encounter Goals Goal [...] as of this encounter Care Teams Electrical Line Mechanic Relationship Specialty Start Date End Date Sariah Vickers ANP [address] [place] [address] PCP - General Family Medicine 09/23/19 Yuri Pierre, MikeD [address] [place] [address] Pharmacist Internal Medicine 05/05/24 Basilio Hall MD [address] [place] [phone] Cardiology 05/17/24 Ron Preciado MD [address] [place] [phone] Pulmonary Disease 05/17/24 documented as of this encounter
--- OUTSIDE RECORDS SUMMARY | 2025-01-10 12:00 | XMS_ITS | Encounter Summary ---
Author Organization [employer] Address 75 [facility] 7t [place] [address] Care Team Providers Care Administration Professional Name Role Phone Sariah Vickers Primary Care Provider Yuri Pierre PharmD Unavailable [phone] Basilio Hall MD Unavailable [phone] Ron Preciado MD Unavailable [phone] Reason for Visit * Reason Comments Med Refill Encounter Details Date Type Department Care Team (Late st Contact Info) Description 10/17/2023 Refill [facility] 230 [place] [address] Sariah Vickers ANP 230 [place] [address] Neck pain Social History Tobacco Use Types [...] Description 01/11/2025 1:00 PM EST Office Visit [facility] [address] [place] [address] Sariah Vickers, ANP 230 [place] [address] 02/03/2025 11:00 AM EST Medication Management [facility] [address] [place] [address] Yuri Pierre, MikeD 230 [place] [address] 04/04/2025 10:00 AM EST Telemedicine [facility] 505 [place] [address] Azeb Hall, MARTIN 505 [place] [address] documented as of this encounter Goals Goal [...] documented as of this encounter Care Teams Administration Professional Relationship Specialty Start Date End Date Sariah Vickers ANP 230 [place] [address] PCP - General Family Medicine 09/23/19 Yuri Pierre, MikeD [address] [place] [address] Pharmacist Internal Medicine 05/05/24 Basilio Hall MD [address] [place] [address] Cardiology 05/17/24 Ron Preciado MD [address] [place] [address] Pulmonary Disease 05/17/24 documented as of this encounter
--- OUTSIDE RECORDS SUMMARY | 2025-01-10 12:00 | XMS_ITS | Encounter Summary ---
Author Organization [employer] Address 75 [facility] 7t [place] [address] Care Team Providers Care Microsoft Dynamics Developer Name Role Phone Sariah Vickers Primary Care Provider [phone] Yuri Pierre PharmD Unavailable [phone] Basilio Hall MD Unavailable [phone] Ron Preciado MD Unavailable [phone] Reason for Visit * Reason Comments Med Refill Encounter Details Date Type Department Care Team (Late st Contact Info) Description 11/14/2023 Refill [facility] 230 [place] [address] Sariah Vickers ANP 230 [place] [address] Neck pain Social History Tobacco Use Types [...] Description 01/11/2025 1:00 PM EST Office Visit [facility] [address] [place] [address] Sariah Vickers, ANP 230 [place] [address] 02/03/2025 11:00 AM EST Medication Management [facility] [address] [place] [address] Yuri Pierre, MikeD 230 [place] [address] 04/04/2025 10:00 AM EST Telemedicine [facility] 505 [place] [address] Azeb Hall, MARTIN 505 [place] [address] documented as of this encounter Goals Goal Patient Goal Type Associated Problems Recent Progress Patient-Stated? Author Blood Pressure < 140/90 Blood Pressure 126/82(2024 11:16 AM EST) No Aida Rgaland PharmBear Record Your Blood Sugar As Directed [...] documented as of this encounter Care Teams Microsoft Dynamics Developer Relationship Specialty Start Date End Date Sariah Vickers ANP 230 [place] [address] PCP - General Family Medicine 09/23/19 Yuri Pierre, MikeD [address] [place] [address] Pharmacist Internal Medicine 05/05/24 Basilio Hall MD [address] [place] [address] Cardiology 05/17/24 Ron Preciado MD [address] [place] [address] Pulmonary Disease 05/17/24 documented as of this encounter
--- OUTSIDE RECORDS SUMMARY | 2025-01-10 12:00 | XMS_ITS | Encounter Summary ---
Author Organization [employer] Address 75 [facility] 7t [place] [address] Care Team Providers Care Analysis Intern Name Role Phone Sariah Vickers Primary Care Provider [phone] Yuri Pierre PharmD Unavailable [phone] Basilio Hall MD Unavailable [phone] Ron Preciado MD Unavailable [phone] Reason for Visit * Reason Comments Med Refill Pt wants to know if she can keep taking prednis Encounter Details Date Type Department Care Team (Late st Contact Info) Description 06/26/2024 Refill [facility] [address] [place] [address] Sariah Vickers ANP 230 [place] [address] Cervicalgia Social History Tobacco Use Types Packs/Day [...] Description 01/11/2025 1:00 PM EST Office Visit [facility] [address] [place] [address] Sariah Vickers, ANP 230 [place] [address] 02/03/2025 11:00 AM EST Medication Management [facility] 230 [place] [address] Yuri Pierre, MikeD 230 [place] [address] 04/04/2025 10:00 AM EST Telemedicine [facility] 505 [place] [address] Azeb Hall, MARTIN 505 [place] [address] documented as of this encounter Goals Goal [...] documented as of this encounter Care Teams Analysis Intern Relationship Specialty Start Date End Date Sariah Vickers, KAYLEE 230 [place] [address] PCP - General Family Medicine 09/23/19 Yuri Pierre, MikeD [address] [place] [address] Pharmacist Internal Medicine 05/05/24 Basilio Hall MD [address] [place] [address] Cardiology 05/17/24 Ron Preciado MD [address] [place] [address] Pulmonary Disease 05/17/24 documented as of this encounter
--- OUTSIDE RECORDS SUMMARY | 2025-01-10 12:00 | XMS_ITS | Encounter Summary ---
Author Organization [employer] Address 75 [facility] 7t [place] [address] Care Team Providers Care Locomotive Oiler Name Role Phone Sariah Vickers Primary Care Provider [phone] Yuri Pierre PharmD Unavailable [phone] Basilio Hall MD Unavailable [phone] Ron Preciado MD Unavailable [phone] Reason for Visit * Reason Comments Med Refill Encounter Details Date Type Department Care Team (Late st Contact Info) Description 11/26/2023 Refill [facility] 230 [place] [address] Sariah Vickers ANP 230 [place] [address] Vertigo Social History Tobacco Use Types Packs/Day [...] Description 01/11/2025 1:00 PM EST Office Visit [facility] [address] [place] [address] Sariah Vickers, ANP 230 [place] [address] 02/03/2025 11:00 AM EST Medication Management [facility] [address] [place] [address] Yuri Pierre, MikeD 230 [place] [address] 04/04/2025 10:00 AM EST Telemedicine [facility] 505 [place] [address] Azeb Hall, MARTIN 505 [place] [address] documented as of this encounter Goals Goal [...] documented as of this encounter Care Teams Locomotive Oiler Relationship Specialty Start Date End Date Sariah Vickers ANP 230 [place] [address] PCP - General Family Medicine 09/23/19 Yuri Pierre, MikeD 230 [place] [address] Pharmacist Internal Medicine 05/05/24 Basilio Hall MD [address] [place] [address] Cardiology 05/17/24 Ron Preciado MD [address] [place] [address] Pulmonary Disease 05/17/24 documented as of this encounter
--- OUTSIDE RECORDS SUMMARY | 2025-01-10 12:00 | XMS_ITS | Encounter Summary ---
Author Organization [employer] Address 75 [facility] 7t [place] [address] Care Team Providers Care Intake Manager Name Role Phone Sariah Vickers Primary Care Provider [phone] Yuri Pierre PharmD Unavailable [phone] Basilio Hall MD Unavailable [phone] Ron Preciado MD Unavailable [phone] Reason for Visit * Reason Comments Med Refill Encounter Details Date Type Department Care Team (Late st Contact Info) Description 11/24/2023 Refill [facility] 230 [place] [address] Sariah Vickers ANP 230 [place] [address] Vertigo Social History Tobacco Use Types Packs/Day [...] Description 01/11/2025 1:00 PM EST Office Visit [facility] [address] [place] [address] Sariah Vickers, ANP 230 [place] [address] 02/03/2025 11:00 AM EST Medication Management [facility] [address] [place] [address] Yuri Pierre, MikeD 230 [place] [address] 04/04/2025 10:00 AM EST Telemedicine [facility] 505 [place] [address] Azeb Hall, MARTIN 505 [place] [address] documented as of this encounter Goals Goal [...] documented as of this encounter Care Teams Intake Manager Relationship Specialty Start Date End Date Sariah Vickers ANP 230 [place] [address] PCP - General Family Medicine 09/23/19 Yuri Pierre, MikeD 230 [place] [address] Pharmacist Internal Medicine 05/05/24 Basilio Hall MD [address] [place] [address] Cardiology 05/17/24 Ron Preciado MD [address] [place] [address] Pulmonary Disease 05/17/24 documented as of this encounter
--- OUTSIDE RECORDS SUMMARY | 2025-01-10 12:00 | XMS_ITS | Encounter Summary ---
Author Organization [employer] Address 75 [facility] 7t [place] [address] Care Team Providers Care Auxiliary Plant Operator Name Role Phone Sariah Vickers Primary Care Provider [phone] Yuri Pierre PharmD Unavailable [phone] Basilio Hall MD Unavailable [phone] Ron Preciado MD Unavailable [phone] Reason for Visit * Reason Onset Date Comments Med Refill 01/09/2024 Encounter Details Date Type Department Care Team (Late st Contact Info) Description 01/09/2024 Telephone [facility] 230 [place] [address] Sariah Vickers ANP 230 [place], [place] [phone] Med Refill Social History Tobacco Use Types [...] Description 01/11/2025 1:00 PM EST Office Visit [facility] [address] [place] [address] Sariah Vickers, ANP 230 [place] [address] 02/03/2025 11:00 AM EST Medication Management [facility] 230 [place] [address] Yuri Pierre, MikeD 230 [place] [address] 04/04/2025 10:00 AM EST Telemedicine [facility] 505 [place] [address] Azeb Hall, RN 505 [place] [address] documented as of this encounter Goals Goal Patient Goal Type Associated Problems Recent Progress Patient-Stated? Author Blood Pressure < 140/90 Blood Pressure 126/82(2024 11:16 AM EST) No Aida Ragland, PharmD Record Your Blood Sugar As Directed General No Adia Ragland PharmD Hemoglobin A1c < 7 Result Component 6.6( 5 1:54 PM EDT) No Aida Ragland PharmD documented as of this encounter Visit Diagnoses Not on filedocumented in this encounter Additional Health Concerns Assessment Noted Time PHQ-9 Depression Total Score: 12 024 2:58 PM EDT documented as of this encounter Care Teams Auxiliary Plant Operator Relationship Specialty Start Date End Date Sariah Vickers, ANP 230 [place] [address] PCP - General Family Medicine 09/23/19 Yuri Pierre, MikeD [address] [place] [address] Pharmacist Internal Medicine 05/05/24 Basilio Hall MD [address] [place] [address] Cardiology 05/17/24 Ron Preciado MD [address] [place] [address] Pulmonary Disease 05/17/24 documented as of this encounter
--- OUTSIDE RECORDS SUMMARY | 2025-01-10 12:00 | XMS_ITS | Encounter Summary ---
Author Organization [employer] Address 75 [facility] 7t [place] [address] Care Team Providers Care Debeader Name Role Phone Sariah Vickers Primary Care Provider [phone] Yuri Pierre PharmD Unavailable [phone] Basilio Hall MD Unavailable [phone] Ron Preciado MD Unavailable [phone] Reason for Visit * Reason Comments Med Refill Encounter Details Date Type Department Care Team (Late st Contact Info) Description 01/06/2024 Refill [facility] [address] [place] [address] Sariah Vickers ANP 230 [place] [address] Cervicalgia Social History Tobacco Use Types Packs/Day [...] Office Visit [facility] [address] [place] [address] Sariah Vickers ANP 230 [place] [address] 02/03/2025 11:00 AM EST Medication Management [facility] [address] [place] [address] Yuri Pierre, MikeD 230 [place] [address] 04/04/2025 10:00 AM EST Telemedicine [facility] 505 [place] [address] Azeb Hall, RN 505 [place] [address] documented as of this encounter Goals Goal [...] documented as of this encounter Care Teams Debeader Relationship Specialty Start Date End Date Sariah Vickers ANP 230 [place] [address] PCP - General Family Medicine 09/23/19 Yuri Pierre, MikeD [address] [place] [address] Pharmacist Internal Medicine 05/05/24 Basilio Hall MD 596 [place] [address] Cardiology 05/17/24 Ron Preciado MD [address] [place] [address] Pulmonary Disease 05/17/24 documented as of this encounter
--- OUTSIDE RECORDS SUMMARY | 2025-01-10 12:00 | XMS_ITS | Encounter Summary ---
Author Organization [employer] Address 75 [facility] 7t [place] [address] Care Team Providers Care Sternman Name Role Phone Sariah Vickers Primary Care Provider Yuri Pierre PharmD Unavailable [phone] Basilio Hall MD Unavailable [phone] Ron Preciado MD Unavailable [phone] Reason for Visit * Reason Comments Med Refill Encounter Details Date Type Department Care Team (Late st Contact Info) Description 12/17/2023 Refill [facility] 230 [place] [address] Sariah Vickers ANP 230 [place] [address] Chronic SI joint pain Social History Tobacco [...] Description 01/11/2025 1:00 PM EST Office Visit [facility] [address] [place] [address] Sariah Vickers ANP 230 [place] [address] 02/03/2025 11:00 AM EST Medication Management [facility] [address] [place] [address] Yuri Pierre, MikeD 230 [place] [address] 04/04/2025 10:00 AM EST Telemedicine [facility] 505 [place] [address] Azeb Hall, RN 505 [place] [address] documented as of this encounter Goals Goal [...] documented as of this encounter Care Teams Sternman Relationship Specialty Start Date End Date Sariah Vickers ANP 230 [place] [address] PCP - General Family Medicine 09/23/19 Yuri Pierre, MikeD [address] [place] [address] Pharmacist Internal Medicine 05/05/24 Basilio Hall MD [address] [place] [address] Cardiology 05/17/24 Ron Preciado MD [address] [place] [address] Pulmonary Disease 05/17/24 documented as of this encounter
--- OUTSIDE RECORDS SUMMARY | 2025-01-10 12:01 | XMS_ITS | Encounter Summary ---
Author Organization [employer] Address 75 [facility] 7t [place] [address] Care Team Providers Care Analysis Mgr Name Role Phone Sariah Vickers Primary Care Provider Yuri Pierre PharmD Unavailable [phone] Basilio Hall MD Unavailable [phone] Ron Preciado MD Unavailable [phone] Reason for Visit * Reason Onset Date Comments Med Refill 03/04/2023 Encounter Details Date Type Department Care Team (Late st Contact Info) Description 03/04/2023 Telephone [facility] 230 [place], [place] [phone] Sariah Vickers ANP 230 [place], [place] [phone] Med Refill Social History Tobacco Use Types [...] 50 MG tablet To be sent to: [facility] [place], [place] - [address] [place] [address] documented in this encounter Plan of Treatment Upcoming Encounters Date Type Department Care Team ([facility] st Contact Info) Description 01/11/2025 1:00 PM EST Office Visit [facility] [address] [place] [address] Sariah Vickers, ANP 230 [place] [address] 02/03/2025 11:00 AM EST Medication Management [facility] [address] [place] [address] Yuri Pierre, PharmD 230 [place] [address] 04/04/2025 10:00 AM EST Telemedicine [facility] 505 [place] [address] Azeb Hall, MARTIN 505 [place] [address] documented as of this encounter Goals Goal [...] filedocumented in this encounter Care Teams Analysis Mgr Relationship Specialty Start Date End Date Sariah Vickers ANP 230 [place] [address] PCP - General Family Medicine 09/23/19 Yuri Pierre PharmD [address] [place] [address] Pharmacist Internal Medicine 05/05/24 Basilio Hall MD 596 [place] [address] Cardiology 05/17/24 Ron Preciado MD [address] [place] [address] Pulmonary Disease 05/17/24 documented as of this encounter
--- OUTSIDE RECORDS SUMMARY | 2025-01-10 12:01 | XMS_ITS | Encounter Summary ---
Author Organization [employer] Address 75 [facility] 7t [place] [address] Care Team Providers Care Rope Walker Name Role Phone Sariah Vickers Primary Care Provider [phone] Yuri Pierre PharmD Unavailable [phone] Basilio Hall MD Unavailable [phone] Ron Preciado MD Unavailable [phone] Reason for Visit * Reason Onset Date Comments Referral 05/17/2022 Encounter Details Date Type Department Care Team (Late st Contact Info) Description 05/17/2022 Telephone [facility] 230 [place] [address] Sariah Vickers ANP 230 [place] [address] Referral Social History Tobacco Use Types Packs/Day [...] guide to vertigo. Please contact pt at [phone] documented in this encounter Plan of Treatment Upcoming Encounters Date Type Department Care Team (Late st Contact Info) Description 01/11/2025 1:00 PM EST Office Visit [address] [address] Sariah Vickers ANP [address] [place] [address] 02/03/2025 11:00 AM EST Medication Management [facility] [address] [place] [address] Yuri Pierre, PharmBear [address] [place] [address] 04/04/2025 10:00 AM EST Telemedicine [facility] 505 [place], [place] [phone] Azeb Hall, RN 505 [place] [address] documented as of this encounter Visit Diagnoses Not on filedocumented in this encounter Care Teams Rope Walker Relationship Specialty Start Date End Date Sariah Vickers ANP [address] [place] [address] PCP - General Family Medicine 09/23/19 Yuri Pierre, PharmD [address] [place] [address] Pharmacist Internal Medicine 05/05/24 Basilio Hall MD 596 [place] [address] Cardiology 05/17/24 Ron Preciado MD [address] [place] [address] Pulmonary Disease 05/17/24 documented as of this encounter
--- OUTSIDE RECORDS SUMMARY | 2025-01-10 12:01 | XMS_ITS | Encounter Summary ---
Author Organization [employer] Address 75 [facility] 7t [place] [address] Care Team Providers Care Self Pay Specialist Name Role Phone Sariah Vickers Primary Care Provider [phone] Yuri Pierre PharmD Unavailable [phone] Basilio Hall MD Unavailable [phone] Ron Preciado MD Unavailable [phone] Reason for Visit * Reason Onset Date Comments Appointment Request 09/03/2024 Encounter Details Date Type Department Care Team (Late st Contact Info) Description 09/03/2024 Telephone [facility] 230 [place] [address] Sariah Vickers ANP 230 [place] [address] Appointment Request Social History Tobacco Use Types [...] when making the apt. Contact pt at [phone] documented in this encounter Plan of Treatment Upcoming Encounters Date Type Department Care Team (Late st Contact Info) Description 01/11/2025 1:00 PM EST Office Visit [facility] [address] [place] [address] Sariah Vickers, ANP [address] [place] [address] 02/03/2025 11:00 AM EST Medication Management [facility] [address] [place] [address] Yuri Pierre, PharmD [address] [place] [address] 04/04/2025 10:00 AM EST Telemedicine [facility] 505 [place] [address] Azeb Hall, RN 505 [place] [address] documented as of this encounter Goals Goal [...] as of this encounter Care Teams Self Pay Specialist Relationship Specialty Start Date End Date Sariah Vickers ANP 230 [place] [address] PCP - General Family Medicine 09/23/19 Yuri Pierre, MikeD 230 [place] [address] Pharmacist Internal Medicine 05/05/24 Basilio Hall MD [address] [place] [address] Cardiology 05/17/24 Ron Preciado MD [address] [place] [address] Pulmonary Disease 05/17/24 documented as of this encounter
--- OUTSIDE RECORDS SUMMARY | 2025-01-10 12:01 | XMS_ITS | Encounter Summary ---
Author Organization [employer] Address 75 [facility] 7t [place] [address] Care Team Providers Care Podiatric Assistant Name Role Phone Sariah Vickers Primary Care Provider [phone] Yuri Pierre PharmD Unavailable [phone] Basilio Hall MD Unavailable [phone] Ron Preciado MD Unavailable [phone] Reason for Visit * Reason Comments Med Refill Encounter Details Date Type Department Care Team (Late st Contact Info) Description 12/27/2022 Refill [facility] 230 [place] [address] Sariah Vickers ANP 230 [place] [address] Neck pain Social History Tobacco Use Types [...] Description 01/11/2025 1:00 PM EST Office Visit [facility] [address] [place] [address] Sariah Vickers, ANP 230 [place] [address] 02/03/2025 11:00 AM EST Medication Management [facility] [address] [place] [address] Yuri Pierre, PharmD 230 [place] [address] 04/04/2025 10:00 AM EST Telemedicine [facility] 505 [place], [place] [phone] Azeb Hall, MARTIN 505 [place] [address] documented as of this encounter Goals Goal [...] Cervicalgia documented in this encounter Care Teams Podiatric Assistant Relationship Specialty Start Date End Date Sariah Vickers ANP 230 [place] [address] PCP - General Family Medicine 09/23/19 Yuri Pierre, MikeD 230 [place] [address] Pharmacist Internal Medicine 05/05/24 Basilio Hall MD [address] [place], [place] 9651440 Cardiology 05/17/24 Ron Preciado MD [address] [place] [address] Pulmonary Disease 05/17/24 documented as of this encounter
--- OUTSIDE RECORDS SUMMARY | 2025-01-10 12:01 | XMS_ITS | Encounter Summary ---
Author Organization [employer] Address 75 [facility] 7t [place] [address] Care Team Providers Care Plow Shaker Name Role Phone Sariah Vickers Primary Care Provider [phone] Yuri Pierre PharmD Unavailable [phone] Basilio Hall MD Unavailable [phone] Ron Preciado MD Unavailable [phone] Reason for Visit * Reason Onset Date Comments Referral 08/02/2024 Encounter Details Date Type Department Care Team (Late st Contact Info) Description 08/02/2024 Telephone [facility] 230 [place], [place] [phone] Sariah Vickers ANP 230 [place], [place] [phone] Referral Social History Tobacco Use Types Packs/Day [...] for vertigo therapy. Please contact pt at [phone]. 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) documented in this encounter Plan of Treatment Upcoming Encounters Date Type Department Care Team ([facility] st Contact Info) Description 01/11/2025 1:00 PM EST Office Visit [facility] [address] [place] [address] [phone] Sariah Vickers ANP 230 [place] [address] 02/03/2025 11:00 AM EST Medication Management [facility] [address] [place] [address] Yuri Pierre, MikeD 230 [place] [address] 04/04/2025 10:00 AM EST Telemedicine [facility] P[facility] 505 [place] [address] Azeb Hall, RN 505 [place] [address] documented as of this encounter Goals Goal [...] documented as of this encounter Care Teams Plow Shaker Relationship Specialty Start Date End Date Sariah Vickers ANP 230 [place] [address] PCP - General Family Medicine 09/23/19 Yuri Pierre, PharmD 230 [place] [address] Pharmacist Internal Medicine 05/05/24 Basilio Hall MD 5[address] [place] [address] Cardiology 05/17/24 Ron Preciado MD [address] [place] [address] Pulmonary Disease 05/17/24 documented as of this encounter
--- OUTSIDE RECORDS SUMMARY | 2025-01-10 12:01 | XMS_ITS | Encounter Summary ---
Author Organization [employer] Address 75 [facility] 7t [place] [address] Care Team Providers Care Fitness Club Manager Name Role Phone Sariah Vickers Primary Care Provider [phone] Yuri Pierre PharmD Unavailable [phone] Basilio Hall MD Unavailable [phone] Ron Preciado MD Unavailable [phone] Reason for Visit * Reason Comments Med Refill Encounter Details Date Type Department Care Team (Late st Contact Info) Description 11/12/2024 Refill [facility] 230 [place] [address] Sariah Vickers ANP 230 [place] [address] Neck pain Social History Tobacco Use Types [...] Description 01/11/2025 1:00 PM EST Office Visit [facility] [address] [place] [address] Sariah Vickers, ANP 230 [place] [address] 02/03/2025 11:00 AM EST Medication Management [facility] 230 [place] [address] Yuri Pierre, PharmD 230 [place] [address] 04/04/2025 10:00 AM EST Telemedicine [facility] 505 [place] [address] Azeb Hall, MARTIN 505 [place] [address] documented as of this encounter Goals Goal [...] documented as of this encounter Care Teams Fitness Club Manager Relationship Specialty Start Date End Date Sariah Vickers ANP 230 [place] [address] PCP - General Family Medicine 09/23/19 Yuri Pierre, MikeD 230 [place] [address] Pharmacist Internal Medicine 05/05/24 Basilio Hall MD 596 [place] [address] Cardiology 05/17/24 Ron Preciado MD [address] [place] [address] Pulmonary Disease 05/17/24 documented as of this encounter
--- OUTSIDE RECORDS SUMMARY | 2025-01-10 12:01 | XMS_ITS | Encounter Summary ---
Author Organization [employer] Address 75 [facility] 7t [place] [address] Care Team Providers Care Plasma Cutting 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 Name Role Phone Sariah Vickers Primary Care Provider [phone] Yuri Pierre PharmD Unavailable [phone] Basilio Hall MD Unavailable [phone] Ron Preciado MD Unavailable [phone] Reason for Visit * Reason Onset Date Comments Nurse Triage 01/14/2023 Encounter Details Date Type Department Care Team (Late st Contact Info) Description 01/14/2023 Telephone [facility] 230 [place] [address] Sariah Vickers ANP 230 [place] [address] Nurse Triage Social History Tobacco Use Types [...] your housing situation today? I have rodrigocarlie eknt 12/04/[address] you li [...] 01/14/2023 9:26 AM EST Called pt. Via [employer] client support representative [phone] Kelly. Pt. States that she has been [...] Will send note to clinical resident care director to have note put in chart . 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) documented in this encounter Plan of Treatment Upcoming Encounters Date Type Department Care Team (Late st Contact Info) Description 01/11/2025 1:00 PM EST Office Visit [facility] [address] [place] [address] Sariah Vickers ANP 230 [place] [address] 02/03/2025 11:00 AM EST Medication Management [facility] [address] [place] [address] Yuri Pierre, MikeD [address] [place] [address] 04/04/2025 10:00 AM EST Telemedicine [facility] 505 [place], [place] [phone] Azeb Hall, RN 505 [place] [address] documented as of this encounter Goals Goal [...] on filedocumented in this encounter Care Teams Plasma Cutting 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 Relationship Specialty Start Date End Date Sariah Vickers ANP [address] [place] [address] PCP - General Family Medicine 09/23/19 Yuri Pierre, MikeD 230 [place], [place] [phone] Pharmacist Internal Medicine 05/05/24 Basilio Hall MD 596 [place], [place] [phone] Cardiology 05/17/24 Ron Preciado MD [address] [place] [address] [id number] Pulmonary Disease 05/17/24 documented as of this encounter
--- OUTSIDE RECORDS SUMMARY | 2025-01-10 12:01 | XMS_ITS | Encounter Summary ---
Author Organization [employer] Address 75 [facility] 7t [place] [address] Care Team Providers Care Agricultural Extension Officer Name Role Phone Sariah Vickers Primary Care Provider [phone] Yuri Pierre PharmD Unavailable [phone] Basilio Hall MD Unavailable [phone] Ron Preciado MD Unavailable [phone] Reason for Visit * Reason Onset Date Comments Nurse Triage 12/24/2022 Encounter Details Date Type Department Care Team (Late st Contact Info) Description 12/24/2022 Telephone [facility] 230 [place] [address] Sariah Vickers ANP 230 [place] [address] Nurse Triage Social History Tobacco Use Types [...] - 12/24/2022 1:11 PM EST 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 Pt. States that she wants to [...] regimen and possible referral to a new Hand Cigar Maker due to pt. Not having jeremie in [...] accepted this outcome Please contact pt at [phone] documented in this encounter Plan of Treatment Upcoming Encounters Date Type Department Care Team (Late st Contact Info) Description 01/11/2025 1:00 PM EST Office Visit [facility] 230 [place] [address] Sariah Vickers ANP 230 [place], [place] 02/03/2025 11:00 AM EST Medication Management [facility] 230 [place], [place] [phone] Yuri Pierre, PharmBear 230 [place], [place] 04/04/2025 10:00 AM EST Telemedicine [facility] 505 [place] [address] Azeb Hall, RN 505 [place], [place] documented as of this encounter Goals [...] on filedocumented in this encounter Care Teams Agricultural Extension Officer Relationship Specialty Start Date End Date Sariah Vickers ANP [address] [place] [address] PCP - General Family Medicine 09/23/19 Yuri Pierre, PharmD [address] [place] [address] Pharmacist Internal Medicine 05/05/24 Basilio Hall MD 596 [place] [address] Cardiology 05/17/24 Ron Preciado MD [address] [place], [place] [phone] Pulmonary Disease 05/17/24 documented as of this encounter
--- OUTSIDE RECORDS SUMMARY | 2025-01-10 12:01 | XMS_ITS | Encounter Summary ---
Author Organization [employer] Address 75 [facility] 7t [place] [address] Care Team Providers Care Motorcycle Service Technician Name Role Phone Sariah Vickers Primary Care Provider [phone] Yuri Pierre PharmD Unavailable [phone] Basilio Hall MD Unavailable [phone] Ron Preciado MD Unavailable [phone] Reason for Visit * Reason Comments Med Refill Encounter Details Date Type Department Care Team (Late st Contact Info) Description 01/05/2025 Refill [facility] 230 [place] [address] Sariah Vickers ANP 230 [place] [address] Social History Tobacco Use Types Packs/Day Years [...] Description 01/11/2025 1:00 PM EST Office Visit [facility] [address] [place] [address] Sariah Vickers, ANP 230 [place] [address] 02/03/2025 11:00 AM EST Medication Management [facility] 230 [place] [address] Yuri Pierre, PharmD 230 [place] [address] 04/04/2025 10:00 AM EST Telemedicine [facility] 505 [place] [address] Azeb Hall, RN 505 [place] [address] documented as of this encounter Goals Goal [...] as of this encounter Care Teams Motorcycle Service Technician Relationship Specialty Start Date End Date Sariah Vickers ANP 230 [place] [address] PCP - General Family Medicine 09/23/19 Yuri Pierre, MikeD 230 [place] [address] Pharmacist Internal Medicine 05/05/24 Basilio Hall MD 596 [place] [address] Cardiology 05/17/24 Ron Preciado MD [address] [place] [address] Pulmonary Disease 05/17/24 documented as of this encounter
--- OUTSIDE RECORDS SUMMARY | 2025-01-10 12:01 | XMS_ITS | Encounter Summary ---
Author Organization [employer] Address 75 [facility] 7t [place] [address] Care Team Providers Care Mobile Health Vehicle Operator Name Role Phone Sariah Vickers KAYLEE Primary Care Provider [phone] Yuri Pierre PharmD Unavailable [phone] Basilio Hall MD Unavailable [phone] Ron Preciado MD Unavailable [phone] Reason for Visit * Reason Comments Med Refill Encounter Details Date Type Department Care Team (Late st Contact Info) Description 03/04/2023 Refill [facility] 230 [place] [address] Brittney Nava MD 230 [place] [address] Social History Tobacco Use Types Packs/Day Years [...] 1:00 PM EST Office Visit [facility] MEDICINE [address] [place] [address] Sariah Vickers, ANP 230 [place] [address] 02/03/2025 11:00 AM EST Medication Management [facility] [address] [place] [address] Yuri Pierre, MikeD 230 [place] [address] 04/04/2025 10:00 AM EST Telemedicine [facility] MED [facility] PEDS 505 [place] [address] Azeb Hall, MARTIN 505 [place] [address] documented as of this encounter Goals Goal [...] filedocumented in this encounter Care Teams Mobile Health Vehicle Operator Relationship Specialty Start Date End Date Sariah Vickers ANP 230 [place] [address] PCP - General Family Medicine 09/23/19 Yuri Pierre, MikeD 230 [place] [address] Pharmacist Internal Medicine 05/05/24 Basilio Hall MD [address] [place] [address] [phone] Cardiology 05/17/24 Ron Preciado MD [address] [place] [address] Pulmonary Disease 05/17/24 documented as of this encounter
--- OUTSIDE RECORDS SUMMARY | 2025-01-10 12:01 | XMS_ITS | Clinical Summary ---
Author Organization 175 [facility] Address [address] [place] [address] Phone Care Team Providers Care Machine Burrer Name Role Phone Sariah Vickers NP Primary [...] age to complete this topic Care Teams Machine Burrer Relationship Specialty Start Date End Date Sariah Vickers NP [address] [place] [phone] PCP - General 12/03/23
--- OUTSIDE RECORDS SUMMARY | 2025-01-10 12:01 | XMS_ITS | Encounter Summary ---
Author Organization [employer] Address 75 [facility] 7t [place] [address] Care Team Providers Care Aquaculture Worker Name Role Phone Sariah Vickers Primary Care Provider [phone] Yuri Pierre PharmD Unavailable [phone] Basilio Hall MD Unavailable [phone] Ron Preciado MD Unavailable [phone] Reason for Visit * Reason Comments Med Refill Encounter Details Date Type Department Care Team (Late st Contact Info) Description 12/17/2024 Refill [facility] 230 [place] [address] Sariah Vickers ANP 230 [place] [address] Chronic SI joint pain Social History Tobacco [...] Office Visit [facility] MED[facility]INE [address] [place] [address] Sariah Vickers, ANP 230 [place] [address] 02/03/2025 11:00 AM EST Medication Management [facility] 230 [place] [address] Yuri Pierre, PharmD 230 [place] [address] 04/04/2025 10:00 AM EST Telemedicine [facility] MED [facility] PEDS 505 [place] [address] Azeb Hall, RN 505 [place] [address] documented as of this encounter Goals Goal [...] documented as of this encounter Care Teams Aquaculture Worker Relationship Specialty Start Date End Date Sariah Vickers, KAYLEE 230 [place] [address] PCP - General Family Medicine 09/23/19 Yuri Pierre PharmD 230 [place] [address] Pharmacist Internal Medicine 05/05/24 Basilio Hall MD 596 [place] [address] Cardiology 05/17/24 Ron Preciado MD [address] [place] [address] Pulmonary Disease 05/17/24 documented as of this encounter
--- OUTSIDE RECORDS SUMMARY | 2025-01-10 12:01 | XMS_ITS | Encounter Summary ---
Author Organization [employer] Address 75 [facility] 7t [place] [address] Care Team Providers Care Development Intern Name Role Phone Anthony Ruiz Primary Care Provider [phone] Yuri Pierre PharmD Unavailable [phone] Basilio Hall MD Unavailable [phone] Ron Preciado MD Unavailable [phone] Encounter Details Date Type Department Care Team (Late st Contact Info) Description 09/28/2024 Orders Only [facility] 230 [place] [address] Anthony Ruiz ANP 230 [place] [address] Social History Tobacco Use Types Packs/Day Years [...] Description 01/11/2025 1:00 PM EST Office Visit [facility] [address] [place] [address] Anthony Ruiz, ANP 230 [place] [address] 02/03/2025 11:00 AM EST Medication Management [facility] [address] [place] [address] Yuri Pierre, MikeD 230 [place] [address] 04/04/2025 10:00 AM EST Telemedicine [facility] 505 [place] [address] Azeb Hlal, MARTIN 505 [place] [address] documented as of this encounter Goals Goal [...] PM EDT Narrative 10/09/2024 1:20 PM EDT [address] [address] [address] Scan Report Signed Patient: Nuvia Fay MR #: [id number] : 1960 Acct:[id number] Age/Sex: 64 / F ADM Date: 10/08/24 Loc: HO.CT Attending Dr: Ron Preciado MD Ordering Physician: Ron Preciado MD Date of Service: 10/08/24 Procedure(s): CT lung screening Accession Number(s): [id number] cc: Ron Preciado MD; ANTHONY RUIZ NP Report Number: [id number]: Total DLP = 64.00 mGy-cm CLINICAL HISTORY: [...] 10/09/24 1319 DD/ 1318 TD/TT: 10/09/24 1318 Sand Miller: Procedure Note Donotuseinterpreter, Image - 10/09/[address] [place] [address] [address] Scan Report Signed Patient: Nuvia Fay EMR #: [id number] : [id number]:[id number] Age/Sex: 64 / FADM Date: 10/08/24 Loc: .CT Attending Dr: Ron Preciado MD Ordering Physician: Ron Preciado MD Date of Service: 10/08/24 Procedure(s): CT lung screening Accession Number(s): [id number] cc: Ron Preciado MD; ANTHONY RUIZ NP Report Number: [id number]: Total DLP = 64.00 mGy-cm CLINICAL HISTORY: [...] 10/09/24 1319 DD/ 1318 TD/TT: 10/09/24 1318 Sand Miller: [facility] External Provider IMG CT PROCEDURES Edited Result - Final documented in this encounter Visit Diagnoses Not on filedocumented in this encounter Additional Health Concerns Assessment Noted Time PHQ-9 Depression Total Score: 12 024 2:58 PM EDT documented as of this encounter Care Teams Development Intern Relationship Specialty Start Date End Date Anthony Ruiz ANP 230 [place] [address] PCP - General Family Medicine 09/23/19 Yuri Pierre, MikeD 230 [place] [address] Pharmacist Internal Medicine 05/05/24 Basilio Hall MD [address] [place] [address] Cardiology 05/17/24 Ron Preciado MD [address] [place] [address] Pulmonary Disease 05/17/24 documented as of this encounter
--- OUTSIDE RECORDS SUMMARY | 2025-01-10 12:01 | XMS_ITS | Encounter Summary ---
Author Organization [employer] Address 75 [facility] 7t [place] [address] Care Team Providers Care Nail Galvanizer Name Role Phone Sariah Vickers Primary Care Provider [phone] Yuri Pierre PharmD Unavailable [phone] Basilio Hall MD Unavailable [phone] Ron Preciado MD Unavailable [phone] Reason for Visit * Reason Comments Med Refill Encounter Details Date Type Department Care Team (Late st Contact Info) Description 12/19/2022 Refill [facility] 230 [place] [address] Sariah Vickers ANP [address] [place] [address] Vertigo Social History Tobacco Use Types Packs/Day [...] EST Office Visit [facility] [address] [place] [address] Sariah Vickers, ANP 230 [place] [address] 02/03/2025 11:00 AM EST Medication Management [facility] [address] [place] [address] Yuri Pierre, PharmD 230 [place] [address] 04/04/2025 10:00 AM EST Telemedicine [facility] 505 [place], [place] [phone] Azeb Hall, MARTIN 505 [place] [address] documented as of this encounter Goals Goal [...] giddiness documented in this encounter Care Teams Nail Galvanizer Relationship Specialty Start Date End Date Sariah Vickers ANP [address] [place] [address] PCP - General Family Medicine 09/23/19 Yuri Pierre, MikeD [address] [place] [address] Pharmacist Internal Medicine 05/05/24 Basilio Hall MD [address] [place] [address] [phone] Cardiology 05/17/24 Ron Preciado MD [address] [place] [address] Pulmonary Disease 05/17/24 documented as of this encounter
--- OUTSIDE RECORDS SUMMARY | 2025-01-10 12:01 | XMS_ITS | Encounter Summary ---
Author Organization [employer] Address 75 [facility] 7t [place] [address] Care Team Providers Care Medical Coder Name Role Phone Sariah Vickers Primary Care Provider [phone] Yuri Pierre PharmD Unavailable [phone] Basilio Hlal MD Unavailable [phone] Ron Preciado MD Unavailable [phone] Reason for Visit * Reason Comments Med Refill Encounter Details Date Type Department Care Team (Late st Contact Info) Description 05/23/2024 Refill [facility] [address] [place] [address] Sariah Vickers ANP 230 [place] [address] Cervicalgia Social History Tobacco Use Types Packs/Day [...] PM EST Office Visit [facility] [address] [place] [address] Sariah Vickers ANP 230 [place] [address] 02/03/2025 11:00 AM EST Medication Management [facility] [address] [place] [address] Yuri Pierre, MikeD 230 [place] [address] 04/04/2025 10:00 AM EST Telemedicine [facility] 505 [place] [address] Azeb Hall, RN 505 [place] [address] documented as of this encounter Goals Goal [...] as of this encounter Care Teams Medical Coder Relationship Specialty Start Date End Date Sariah Vickers ANP 230 [place] [address] PCP - General Family Medicine 09/23/19 Yuri Pierre, MikeD [address] [place] [address] Pharmacist Internal Medicine 05/05/24 Basilio Hall MD 5[address] [place] [address] Cardiology 05/17/24 Ron Preciado MD [address] [place] [address] Pulmonary Disease 05/17/24 documented as of this encounter
--- OUTSIDE RECORDS SUMMARY | 2025-01-10 12:01 | XMS_ITS | Encounter Summary ---
Author Organization [employer] Address 75 [facility] 7t [place] [address] Care Team Providers Care Guide Dog Trainer Name Role Phone Sariah Vickers KAYLEE Primary Care Provider [phone] Yuri Pierre PharmD Unavailable [phone] Basilio Hall MD Unavailable [phone] Ron Preciado MD Unavailable [phone] Reason for Visit * Reason Comments Med Refill Encounter Details Date Type Department Care Team (Late st Contact Info) Description 10/04/2024 Refill [facility] [address] [place] [address] Zakia Uriostegui, PROFESSOR OF BIOLOGICAL SCIENCES 230 [place] [address] Type 2 diabetes mellitus with hyperglycemia (CMS/HCC) [...] 01/11/2025 1:00 PM EST Office Visit [facility] [address] [place] [address] Sariah Vickers, ANP 230 [place] [address] 02/03/2025 11:00 AM EST Medication Management [facility] [address] [place] [address] Yuri Pierre, PharmD 230 [place] [address] 04/04/2025 10:00 AM EST Telemedicine [facility] 505 [place], [place] [phone] Azeb Hall, MARTIN 505 [place] [address] documented as of this encounter Goals Goal [...] documented as of this encounter Care Teams Guide Dog Trainer Relationship Specialty Start Date End Date Sariah Vickers ANP 230 [place] [address] PCP - General Family Medicine 09/23/19 Yuri Pierre PharmD 230 [place] [address] Pharmacist Internal Medicine 05/05/24 Basilio Hall MD [address] [place] [address] Cardiology 05/17/24 Ron Preciado MD [address] [place] [address] Pulmonary Disease 05/17/24 documented as of this encounter
--- OUTSIDE RECORDS SUMMARY | 2025-01-10 12:01 | XMS_ITS | Encounter Summary ---
Author Organization [employer] Address 75 [facility] 7t [place] [address] Care Team Providers Care Unemployment Examiner Name Role Phone Sariah Vickers Primary Care Provider [phone] Yuri Pierre PharmD Unavailable [phone] Basilio Hall MD Unavailable [phone] Ron Preciado MD Unavailable [phone] Reason for Visit * Reason Comments Med Refill Encounter Details Date Type Department Care Team (Late st Contact Info) Description 03/07/2023 Refill [facility] 230 [place] [address] Sariah Vickers ANP 230 [place] [address] Vertigo Social History Tobacco Use Types Packs/Day [...] Description 01/11/2025 1:00 PM EST Office Visit [facility] MED[facility]INE [address] [place] [address] Sariah Vickers, ANP 230 [place] [address] 02/03/2025 11:00 AM EST Medication Management [facility] [address] [place] [address] Yuri Pierre, PharmD 230 [place] [address] 04/04/2025 10:00 AM EST Telemedicine [facility] 505 [place], [place] [phone] Azeb Hall, MARTIN 505 [place] [address] documented as of this encounter Goals Goal [...] giddiness documented in this encounter Care Teams Unemployment Examiner Relationship Specialty Start Date End Date Sariah Vickers ANP 230 [place] [address] PCP - General Family Medicine 09/23/19 Yuri Pierre, MikeD 230 [place] [address] Pharmacist Internal Medicine 05/05/24 Basilio Hall MD [address] [place] [address] [phone] Cardiology 05/17/24 Ron Preciado MD [address] [place] [address] Pulmonary Disease 05/17/24 documented as of this encounter
--- OUTSIDE RECORDS SUMMARY | 2025-01-10 12:01 | XMS_ITS | Encounter Summary ---
Author Organization [employer] Address 75 [facility] 7t [place] [address] Care Team Providers Care Harnessmaker Name Role Phone Sariah Vickers Primary Care Provider [phone] Yuri Pierre PharmD Unavailable [phone] Basilio Hall MD Unavailable [phone] Ron Preciado MD Unavailable [phone] Reason for Visit * Reason Comments Med Refill Encounter Details Date Type Department Care Team (Late st Contact Info) Description 02/28/2023 Refill [facility] MEDICINE [address] [place] [address] Sariah Vickers ANP 230 [place] [address] Cervicalgia Social History Tobacco Use Types Packs/Day [...] 01/11/2025 1:00 PM EST Office Visit [facility] MEDICINE [address] [place] [address] Sariah Vickers, ANP 230 [place] [address] 02/03/2025 11:00 AM EST Medication Management [facility] MEDICINE [address] [place] [address] Yuri Pierre, PharmD 230 [place] [address] 04/04/2025 10:00 AM EST Telemedicine [facility] MED & PEDS 505 [place], [place] [phone] Azeb Hall, MARTIN 505 [place] [address] documented as of this encounter Goals Goal [...] Cervicalgia documented in this encounter Care Teams Harnessmaker Relationship Specialty Start Date End Date Sariah Vickers ANP 230 [place] [address] PCP - General Family Medicine 09/23/19 Yuri Pierre, MikeD 230 [place] [address] Pharmacist Internal Medicine 05/05/24 Basilio Hall MD 596 [place], [place] [phone] Cardiology 05/17/24 Ron Preciado MD [address] [place] [address] Pulmonary Disease 05/17/24 documented as of this encounter
--- OUTSIDE RECORDS SUMMARY | 2025-01-10 12:01 | XMS_ITS | Encounter Summary ---
Author Organization [employer] Address 75 [facility] 7t [place] [address] Care Team Providers Care Joinery Setter Out Name Role Phone Sariah Vickers Primary Care Provider [phone] Yuri Pierre PharmD Unavailable [phone] Basilio Hall MD Unavailable [phone] Ron Preciado MD Unavailable [phone] Reason for Visit * Reason Comments Med Refill Encounter Details Date Type Department Care Team (Late st Contact Info) Description 05/09/2023 Refill [facility] MEDICINE 230 [place] [address] Sariah Vickers ANP 230 [place] [address] High cholesterol Social History Tobacco Use Types [...] Description 01/11/2025 1:00 PM EST Office Visit [facility] MEDICINE [address] [place] [address] Sariah Vickers, ANP 230 [place] [address] 02/03/2025 11:00 AM EST Medication Management [facility] MEDICINE [address] [place] [address] Yuri Pierre, PharmD 230 [place] [address] 04/04/2025 10:00 AM EST Telemedicine [facility] MED & PEDS 505 [place], [place] [phone] Azeb Hall, MARTIN 505 [place] [address] documented as of this encounter Goals Goal [...] hypercholesterolemia documented in this encounter Care Teams Joinery Setter Out Relationship Specialty Start Date End Date Sariah Vickesr ANP 230 [place] [address] PCP - General Family Medicine 09/23/19 Yuri Pierre, PharmD 230 [place] [address] Pharmacist Internal Medicine 05/05/24 Basilio Hall MD 596 [place], [place] [phone] Cardiology 05/17/24 Ron Preciado MD [address] [place] [address] Pulmonary Disease 05/17/24 documented as of this encounter
--- OUTSIDE RECORDS SUMMARY | 2025-01-10 12:01 | XMS_ITS | Encounter Summary ---
Author Organization [employer] Address 75 [facility] 7t [place] [address] Care Team Providers Care Financial Aids Officer Name Role Phone Sariah Vickers KAYLEE Primary Care Provider [phone] Yuri Pierre PharmD Unavailable [phone] Basilio Hall MD Unavailable [phone] Ron Preciado MD Unavailable [phone] Reason for Visit * Reason Comments Med Refill Encounter Details Date Type Department Care Team (Late st Contact Info) Description 11/11/2024 Refill [facility]AL 230 [place] [address] Yogesh Gomez, JOHN 230 [place] [address] Social History Tobacco Use Types Packs/Day Years [...] Upcoming Encounters Date Type Department Care Team ([facility] st Contact Info) Description 01/11/2025 1:00 PM EST Office Visit [facility] MEDICINE [address] [place] [address] Sariah Vickers, ANP 230 [place] [address] 02/03/2025 11:00 AM EST Medication Management [facility] MEDICINE [address] [place] [address] Yuri Pierre, PharmD [address] [place] [address] 04/04/2025 10:00 AM EST Telemedicine [facility] CH[facility] MED & PEDS 505 [place] [address] Azeb Hall, MARTIN 505 [place] [address] documented as of this encounter Goals Goal [...] documented as of this encounter Care Teams Financial Aids Officer Relationship Specialty Start Date End Date Sariah Vickers ANP 230 [place] [address] PCP - General Family Medicine 09/23/19 Yuri Pierre, MikeD 230 [place] [address] Pharmacist Internal Medicine 05/05/24 Basilio Hall MD 596 [place] [address] Cardiology 05/17/24 Ron Preciado MD [address] [place] [address] Pulmonary Disease 05/17/24 documented as of this encounter
--- OUTSIDE RECORDS SUMMARY | 2025-01-10 12:01 | XMS_ITS | Encounter Summary ---
Author Organization [employer] Address 75 [facility] 7t [place] [address] Care Team Providers Care Mold Maker Plastic Molds Name Role Phone Sariah Vickers Primary Care Provider Yuri Pierre PharmD Unavailable [phone] Basilio Hall MD Unavailable [phone] Ron Preciado MD Unavailable [phone] Reason for Visit * Reason Comments Med Refill Encounter Details Date Type Department Care Team (Late st Contact Info) Description 07/17/2022 Refill [facility] MEDICINE 230 [place] [address] Sariah Vickers ANP 230 [place] [address] Neck pain Social History Tobacco Use Types [...] 1:00 PM EST Office Visit [facility] MEDICINE [address] [place] [address] Sariah Vickers ANP 230 [place] [address] 02/03/2025 11:00 AM EST Medication Management [facility] MEDICINE [address] [place] [address] Yuri Pierre, PharmD 230 [place] [address] 04/04/2025 10:00 AM EST Telemedicine [facility] MED & PEDS 505 [place] [address] Azeb Hall, MARTIN 505 [place] [address] documented as of this encounter Visit Diagnoses Diagnosis Neck pain Cervicalgia documented in this encounter Care Teams Mold Maker Plastic Molds Relationship Specialty Start Date End Date Sariah Vickers ANP [address] [place] [address] PCP - General Family Medicine 09/23/19 Yuri Pierre, PharmD [address] [place] [address] Pharmacist Internal Medicine 05/05/24 Basilio Hall MD 596 [place] [address] Cardiology 05/17/24 Rno Preciado MD [address] [place] [address] Pulmonary Disease 05/17/24 documented as of this encounter
--- OUTSIDE RECORDS SUMMARY | 2025-01-10 12:01 | XMS_ITS | Encounter Summary ---
Author Organization [employer] Address 75 [facility] 7t [place] [address] Care Team Providers Care Brush Machine Setter Name Role Phone Sariah Vickers Primary Care Provider [phone] Yuri Pierre PharmD Unavailable [phone] Basilio Hall MD Unavailable [phone] Ron Preciado MD Unavailable [phone] Reason for Visit * Reason Comments Med Refill Encounter Details Date Type Department Care Team (Late st Contact Info) Description 07/10/2022 Refill [facility] MEDICINE 230 [place] [address] Sariah Vickers ANP 230 [place] [address] Vertigo Social History Tobacco Use Types Packs/Day [...] Description 01/11/2025 1:00 PM EST Office Visit [address] [address] Sariah Vickers ANP 230 [place] [address] 02/03/2025 11:00 AM EST Medication Management [address] [address] Yuri Pierre, PharmD [address] [place] [address] 04/04/2025 10:00 AM EST Telemedicine [facility] MED & PEDS 505 [place] [address] Azeb Hall, MARTIN 505 [place] [address] documented as of this encounter Visit Diagnoses Diagnosis Vertigo Dizziness and giddiness documented in this encounter Care Teams Brush Machine Setter Relationship Specialty Start Date End Date Sariah Vickers ANP [address] [place] [address] PCP - General Family Medicine 09/23/19 Yuri Pierre, PharmD [address] [place] [address] Pharmacist Internal Medicine 05/05/24 Basilio Hall MD 596 [place] [address] Cardiology 05/17/24 Ron Preciado MD [address] [place] [address] Pulmonary Disease 05/17/24 documented as of this encounter
--- OUTSIDE RECORDS SUMMARY | 2025-01-10 12:01 | XMS_ITS | Encounter Summary ---
Author Organization [employer] Address 75 [facility] 7t [place] [address] Care Team Providers Care Bisque Grader Name Role Phone Sariah Vickers Primary Care Provider [phone] Yuri Pierre PharmD Unavailable [phone] Basilio Hall MD Unavailable [phone] Ron Preciado MD Unavailable [phone] Reason for Visit * Reason Comments Med Refill Encounter Details Date Type Department Care Team (Late st Contact Info) Description 07/12/2022 Refill [facility] MEDICINE 230 [place] [address] Sariah Vickers ANP 230 [place] [address] Social History Tobacco Use Types Packs/Day Years [...] [facility] MEDICINE [address] [place] [address] Sariah Vickers ANP 230 [place] [address] 02/03/2025 11:00 AM EST Medication Management [facility] MEDICINE 230 [place] [address] Yuri Pierre, PharmD 230 [place] [address] 04/04/2025 10:00 AM EST Telemedicine [facility] MED & PEDS 505 [place] [address] Azeb Hall, RN 505 [place] [address] documented as of this encounter Visit Diagnoses Not on filedocumented in this encounter Care Teams Bisque Grader Relationship Specialty Start Date End Date Sariah Vickers ANP [address] [place] [address] PCP - General Family Medicine 09/23/19 Yuri Pierre, PharmD [address] [place] [address] Pharmacist Internal Medicine 05/05/24 Basilio Hall MD 596 [place] [address] Cardiology 05/17/24 Ron Preciado MD [address] [place] [address] Pulmonary Disease 05/17/24 documented as of this encounter
--- OUTSIDE RECORDS SUMMARY | 2025-01-10 12:01 | XMS_ITS | Encounter Summary ---
Author Organization [employer] Address [address] [facility] [address] 7t [place] [address] Care Team Providers Care Policyholder Information Clerk Name Role Phone Sariah Vickers KAYLEE Primary Care Provider [phone] Yuri Pierre PharmD Unavailable [phone] Basilio Hall MD Unavailable [phone] Ron Preciado MD Unavailable [phone] Encounter Details Date Type Department Care Team (Latest Contact Info) Description 01/07/2025 Travel Social History Tobacco Use Types Packs/Day [...] [facility] st Contact Info) Description 01/11/2025 1:00 PM EST Office Visit [facility] MEDICINE [address] [place] [address] Sariah Vickers, ANP [address] [place] [address] 02/03/2025 11:00 AM EST Medication Management [facility] MEDICINE [address] [place] [address] Yuri Pierre, Dileep 230 [place] [address] 04/04/2025 10:00 AM EST Telemedicine [facility] CH[facility] MED & PEDS 505 [place] [address] Azeb Hall, MARTIN 505 [place] [address] documented as of this encounter Goals Goal Patient Goal Type Associated Problems Recent Progress Patient-Stated? Author Blood Pressure < 140/90 Blood Pressure 126/82(2024 11:16 AM EST) No Piers-Gambl e, Aida, PharmD Record Your Blood Sugar As Directed General No Piers-Gambl e, Aida, PharmD Hemoglobin A1c < 7 Result Component 6.6( 1:54 PM EDT) No Piers-Gambl e, Aida, PharmD Help patients manage their type 2 diabetes Care Plan Help patients manage their type 2 diabetes Azeb Mary RN Weekly blood pressure task [...] Hall RN documented as of this encounter Visit Diagnoses Not on filedocumented in this encounter Additional Health Concerns Active [...] documented as of this encounter Care Teams Policyholder Information Clerk Relationship Specialty Start Date End Date Sariah Vickers ANP 230 [place] [address] PCP - General Family Medicine 09/23/19 Yuri Pierre, MikeD 230 [place] [address] Pharmacist Internal Medicine 05/05/24 Basilio Hall MD 596 [place] [address] Cardiology 05/17/24 Ron Preciado MD [address] [place] [address] Pulmonary Disease 05/17/24 documented as of this encounter
--- OUTSIDE RECORDS SUMMARY | 2025-01-10 12:01 | XMS_ITS | Encounter Summary ---
Author Organization [employer] Address 75 [facility] 7t [place] [address] Care Team Providers Care Technology Project Manager Name Role Phone Sariah Vickers Primary Care Provider [phone] Yuri Pierre PharmD Unavailable [phone] Basilio Hall MD Unavailable [phone] Ron Preciado MD Unavailable [phone] Reason for Visit * Reason Comments Med Refill Encounter Details Date Type Department Care Team (Late st Contact Info) Description 05/21/2023 Refill [facility] MEDICINE 230 [place] [address] Sariah Vickers ANP 230 [place] [address] Neck pain Social History Tobacco Use Types [...] Description 01/11/2025 1:00 PM EST Office Visit [facility] MEDICINE [address] [place] [address] Sariah Vickers, ANP 230 [place] [address] 02/03/2025 11:00 AM EST Medication Management [facility] MEDICINE 230 [place] [address] Yuri Pierre, PharmD 230 [place] [address] 04/04/2025 10:00 AM EST Telemedicine [facility] CHC MED & PEDS 505 [place] [address] Azeb Hall, RN 505 [place] [address] documented as of this encounter Goals Goal [...] Cervicalgia documented in this encounter Care Teams Technology Project Manager Relationship Specialty Start Date End Date Sariah Vickers ANP 230 [place] [address] PCP - General Family Medicine 09/23/19 Yuri Pierre, MikeD 230 [place] [address] Pharmacist Internal Medicine 05/05/24 Basilio Hall MD [address] [place] [address] Cardiology 05/17/24 Ron Preciado MD [address] [place] [address] Pulmonary Disease 05/17/24 documented as of this encounter
--- OUTSIDE RECORDS SUMMARY | 2025-01-10 12:02 | XMS_ITS | Encounter Summary ---
Author Organization [employer] Address 75 [facility] 7t [place] [address] Care Team Providers Care Lead Quality Technician Name Role Phone Sariah Vickers Primary Care Provider [phone] Yuri Pierre PharmD Unavailable [phone] Basilio Hall MD Unavailable [phone] Ron Preciado MD Unavailable [phone] Reason for Visit * Reason Comments Med Refill Encounter Details Date Type Department Care Team (Late st Contact Info) Description 08/14/2022 Refill [facility] CHC MED & PEDS [address] [place] [address] Sariah Vickers ANP 230 [place] [address] Severe persistent asthma without complication Social History [...] Description 01/11/2025 1:00 PM EST Office Visit [facility] MEDICINE [address] [place] [address] Sariah Vickers ANP 230 [place] [address] 02/03/2025 11:00 AM EST Medication Management [facility] MEDICINE 230 [place] [address] Yuri Pierre, Dileep 230 [place] [address] 04/04/2025 10:00 AM EST Telemedicine [facility] MED & PEDS 505 [place], [place] [phone] Azeb Hall, MARTIN 505 [place] [address] documented as of this encounter Visit Diagnoses Diagnosis Severe persistent asthma without complication (HCC) documented in this encounter Care Teams Lead Quality Technician Relationship Specialty Start Date End Date Sariah Vickers ANP [address] [place] [address] PCP - General Family Medicine 09/23/19 Yuri Pierre, PharmD [address] [place] [address] Pharmacist Internal Medicine 05/05/24 Basilio Hall MD 596 [place] [address] Cardiology 05/17/24 Ron Preciado MD [address] [place] [address] Pulmonary Disease 05/17/24 documented as of this encounter
--- OUTSIDE RECORDS SUMMARY | 2025-01-10 12:02 | XMS_ITS | Encounter Summary ---
Author Organization [employer] Address 75 [facility] 7t [place] [address] Care Team Providers Care Video Software Engineer Name Role Phone Sariah Vickers Primary Care Provider [phone] Yuri Pierre PharmD Unavailable [phone] Basilio Hall MD Unavailable [phone] Ron Preciado MD Unavailable [phone] Reason for Visit * Reason Comments Med Refill Encounter Details Date Type Department Care Team (Late st Contact Info) Description 07/10/2023 Refill [facility] 230 [place] [address] Sariah Vickers ANP 230 [place], [place] [phone] Chronic SI joint pain Social History Tobacco [...] Description 01/11/2025 1:00 PM EST Office Visit [facility] MEDICINE [address] [place] [address] Sariah Vickers, ANP 230 [place] [address] 02/03/2025 11:00 AM EST Medication Management [facility] MED[facility]INE [address] [place] [address] Yuri Pierre, MikeD 230 [place] [address] 04/04/2025 10:00 AM EST Telemedicine [facility] CH[facility] MED & PEDS 505 [place] [address] Azeb Hall, RN 505 [place] [address] documented as of this encounter Goals Goal [...] documented as of this encounter Care Teams Video Software Engineer Relationship Specialty Start Date End Date Sariah Vickers ANP 230 [place] [address] PCP - General Family Medicine 09/23/19 Yuri Pierre, MikeD 230 [place] [address] Pharmacist Internal Medicine 05/05/24 Basilio Hall MD [address] [place] [address] Cardiology 05/17/24 Ron Preciado MD [address] [place] [address] Pulmonary Disease 05/17/24 documented as of this encounter
--- OUTSIDE RECORDS SUMMARY | 2025-01-10 12:02 | XMS_ITS | Encounter Summary ---
Author Organization [employer] Address 75 [facility] 7t [place] [address] Care Team Providers Care Pattern Data Operator Name Role Phone Sariah Vickers Primary Care Provider [phone] Yuri Pierre PharmD Unavailable [phone] Basilio Hall MD Unavailable [phone] Ron Preciado MD Unavailable [phone] Reason for Visit * Reason Onset Date Comments Med Refill Durable Medical Equipment 07/15/2023 Foam M attress/Raised Toilet Seat Encounter Details Date Type Department Care Team (Late st Contact Info) Description 07/15/2023 Refill [facility] MEDICINE 230 [place], [place] [phone] Sariah Vickers ANP 230 [place] [address] Neck pain Social History Tobacco Use Types [...] [facility] 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 Please Advise. Good morning, Our [...] 1:00 PM EST Office Visit [facility] MEDICINE 230 [place] [address] Sariah Vickers, KAYLEE 230 [place], [place] 02/03/2025 11:00 AM EST Medication Management [facility] MEDICINE 230 [place] [address] Yuri Pierre, PharmD 230 [place], [place] 04/04/2025 10:00 AM EST Telemedicine [facility] CHC MED & PEDS 505 [place] [address] Azeb Hall, RN 505 [place], [place] documented as of this encounter Goals [...] documented as of this encounter Care Teams Pattern Data Operator Relationship Specialty Start Date End Date Sariah Vickers ANP 230 [place] [address] PCP - General Family Medicine 09/23/19 Yuri Pierre, PharmD 230 [place] [address] Pharmacist Internal Medicine 05/05/24 Basilio Hall MD [address] [place] [address] Cardiology 05/17/24 Ron Preciado MD [address] [place] [address] Pulmonary Disease 05/17/24 documented as of this encounter
--- OUTSIDE RECORDS SUMMARY | 2025-01-10 12:02 | XMS_ITS | Encounter Summary ---
Author Organization [employer] Address 75 [facility] 7t [place] [address] Care Team Providers Care Recruiting Administrator Name Role Phone Sariah Vickers Primary Care Provider [phone] Yuri Pierre PharmD Unavailable [phone] Basilio Hall MD Unavailable [phone] Ron Preciado MD Unavailable [phone] Reason for Visit * Reason Comments Med Refill Encounter Details Date Type Department Care Team (Late st Contact Info) Description 06/30/2023 Refill [facility] MEDICINE 230 [place] [address] Sariah Vickers ANP 230 [place] [address] Neck pain Social History Tobacco Use Types [...] Description 01/11/2025 1:00 PM EST Office Visit [facility] MEDICINE [address] [place] [address] Sariah Vickers, ANP 230 [place] [address] 02/03/2025 11:00 AM EST Medication Management [facility] MEDICINE [address] [place] [address] Yuri Pierre, MikeD 230 [place] [address] 04/04/2025 10:00 AM EST Telemedicine [facility] MED & PEDS 505 [place] [address] Azeb Hall, MARTIN 505 [place] [address] documented as of this encounter Goals Goal [...] documented as of this encounter Care Teams Recruiting Administrator Relationship Specialty Start Date End Date Sariah Vickers ANP 230 [place] [address] PCP - General Family Medicine 09/23/19 Yuri Pierre, MikeD [address] [place] [address] Pharmacist Internal Medicine 05/05/24 Basilio Hall MD [address] [place] [address] Cardiology 05/17/24 Ron Preciado MD [address] [place] [address] Pulmonary Disease 05/17/24 documented as of this encounter
--- OUTSIDE RECORDS SUMMARY | 2025-01-10 12:02 | XMS_ITS | Encounter Summary ---
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.] with hyperlipidemia (CMS/HCC) documented in this encounter Additional Health [...] as of this encounter Care Teams Production Repairer Relationship Specialty Start Date End Date Sariah Vickers ANP 230 [place] [address] PCP - General Family Medicine 09/23/19 Yuri Pierre, Dileep 230 [place] [address] Pharmacist Internal Medicine 05/05/24 Basilio Hall MD [address] [place] [address] Cardiology 05/17/24 Ron Preciado MD [address] [place] [address] Pulmonary Disease 05/17/24 documented as of this encounter
== END 2025-01-10 10:03 | disposition home or self-care (01) ==
LOC: HO.HMGAL 10:00
PROVIDERS: PCP Nurse Practitioner Primary Care; Visit Provider Registered Nurse Emergency
DX: J30.89 Other allergic rhinitis (principal)
CPT/HCPCS: 95117; 95165

== ENCOUNTER 2025-01-19 11:33 | Outpatient (AMB) | payer OTHER, SELFPAY ==
--- OUTSIDE RECORDS SUMMARY | 2025-01-19 14:01 | XMS_ITS | Encounter Summary ---
Author Organization [employer] Address 75 [facility] 7t [place] [address] Care Team Providers Care Survey Operations Director Name Role Phone Sariah Vickers KAYLEE Primary Care Provider Yuri Pierre PharmD Unavailable [phone] Basilio Hall MD Unavailable Ron Preciado MD Unavailable [phone] Felipe Alanis MD Unavailable [phone] Rosemary Moses NP Unavailable EllsworthMay Unavailable Encounter Details Date Type Department Care Team (Latest Contact Info) Description 05/15/[address] [facility] [...] Care Team (Late st Contact Info) Description 01/19/2025 2:20 PM EST Office Visit [facility] WALK-IN CENTER 230 [place], [place] [phone] 02/03/2025 11:00 AM EST Medication Management [facility] MEDICINE 230 [place], [place] [phone] Yuri Pierre, PharmD 230 [place], [place] [phone] 04/04/2025 10:00 AM EST Telemedicine [facility] CHC MED & PEDS 505 [place] [address] Azeb Hall, MARTIN 505 [place] [address] documented as of this encounter Visit Diagnoses Not on filedocumented in this encounter Care Teams Survey Operations Director Relationship Specialty Start Date End Date Sariah Vickers ANP 230 [place] [address] PCP - General Family Medicine 09/23/19 Yuri Pierre, PharmD [address] [place] [address] Pharmacist Internal Medicine 05/05/24 Basilio Hall MD 596 [place] [address] Cardiology 05/17/24 01/10/25 Ron Prceiado MD 5 [place] [address] Pulmonary Disease 05/17/24 Felipe Alanis MD [address] [place] [address] Cardiology 01/11/25 Rosemary Moses NP [address] [place] [address] Urology 01/11/25 Jodee Umm [address] [place] [address] Gastroenterology 01/11/25 documented as of this encounter
--- OUTSIDE RECORDS SUMMARY | 2025-01-19 14:01 | XMS_ITS | Encounter Summary ---
Author Organization [employer] Address 75 [facility] 7t [place] [address] Care Team Providers Care Nurse Esthetician Name Role Phone Sariah Vickers Primary Care Provider Yuri Pierre PharmD Unavailable [phone] Basilio Hall MD Unavailable Ron Preciado MD Unavailable [phone] Felipe Alanis MD Unavailable Rosemary Moses NP Unavailable May Unavailable Reason for Visit * Reason Comments Med Refill Encounter Details Date Type Department Care Team (Late st Contact Info) Description 03/26/2022 Refill [facility] MEDICINE 230 [place] [address] Sariah Vickers ANP 230 [place] [address] Social History Tobacco Use Types Packs/Day Years [...] Description 01/19/2025 2:20 PM EST Office Visit [facility] WALK-IN CENTER [address] [place] [address] 02/03/2025 11:00 AM EST Medication Management [facility] MEDICINE 230 [place] [address] Yuri Pierre, PharmBear 230 [place] [address] 04/04/2025 10:00 AM EST Telemedicine [facility] CHC MED & PEDS 505 [place], [place] [phone] Azeb Hall, MARTIN 505 [place] [address] documented as of this encounter Visit Diagnoses Not on filedocumented in this encounter Care Teams Nurse Esthetician Relationship Specialty Start Date End Date Sariah Vickers ANP [address] [place] [address] PCP - General Family Medicine 09/23/19 Yuri Pierre, PharmD [address] [place] [address] Pharmacist Internal Medicine 05/05/24 Basilio Hall MD 596 [place] [address] Cardiology 05/17/24 01/10/25 Ron Preciado MD [address] [place] [address] Pulmonary Disease 05/17/24 Felipe Alanis MD [address] 3rd [place] [address] Cardiology 01/11/25 Rosemary Moses NP [address] [place] [address] Urology 01/11/25 Jodee Umm [address] 3rd [place] [address] Gastroenterology 01/11/25 documented as of this encounter
--- OUTSIDE RECORDS SUMMARY | 2025-01-19 14:01 | XMS_ITS | Encounter Summary ---
Author Organization [employer] Address 75 [facility] 7t [place] [address] Care Team Providers Care Facilities Locator Name Role Phone Sariah Vickers Primary Care Provider Yuri Pierre PharmD Unavailable Basilio Hall MD Unavailable Ron Preciado MD Unavailable [phone] Felipe Alanis MD Unavailable [phone] Rosemary Moses NP Unavailable May Unavailable Reason for Visit * Reason Comments Med Refill Encounter Details Date Type Department Care Team (Late st Contact Info) Description 09/13/2022 Refill [facility] CHC MED & PEDS [address] [place] [address] Sariah Vickers ANP 230 [place] [address] Severe persistent allergic asthma without complication Social [...] Recorded In the last 10 days, have kev u been in contact with someone who was confirmed or suspected to have Coronavirus/COVID-19? No / Unsure 08/21/2022 8:43 AM EDT documented as of this encounter Plan of Treatment Upcoming Encounters Date Type Department Care Team (Late st Contact Info) Description 01/19/2025 2:20 PM EST Office Visit [facility] WALK-IN CENTER [address] [place] [address] 02/03/2025 11:00 AM EST Medication Management [facility] MEDICINE [address] [place] [address] Yuri Pierre, PharmBear [address] [place] [address] 04/04/2025 10:00 AM EST Telemedicine [facility] CHC MED & PEDS 505 [place] [address] Azeb Hall, RN 505 [place] [address] documented as of this encounter Visit Diagnoses Diagnosis Severe persistent allergic asthma without complication (HCC) documented in this encounter Care Teams Facilities Locator Relationship Specialty Start Date End Date Sariah Vickers ANP [address] [place] [address] PCP - General Family Medicine 09/23/19 Yuri Pierre, PharmD [address] [place] [address] Pharmacist Internal Medicine 05/05/24 Basilio Hall MD [address] [place] [address] Cardiology 05/17/24 01/10/25 Ron Preciado MD [address] [place] [address] Pulmonary Disease 05/17/24 Felipe Alanis MD [address] 3rd [place] [address] Cardiology 01/11/25 Rosemary Moses NP [address] [place] [address] Urology 01/11/25 Jodee May [address] 3rd [place] [address] Gastroenterology 01/11/25 documented as of this encounter
--- OUTSIDE RECORDS SUMMARY | 2025-01-19 14:01 | XMS_ITS | Encounter Summary ---
Author Organization [employer] Address 75 [facility] 7t [place] [address] Care Team Providers Care Forms Analyst Name Role Phone Sariah Vickers Primary Care Provider Yrui Pierre PharmD Unavailable [phone] Basilio Hall MD Unavailable [phone] Ron Preciado MD Unavailable [phone] Felipe Alanis MD Unavailable Rosemary Moses NP Unavailable May Unavailable Reason for Visit * Reason Comments Med Refill Encounter Details Date Type Department Care Team (Late st Contact Info) Description 12/12/2024 Refill [facility] CHC MED & PEDS [address] [place] [address] Sariah Vickers ANP 230 [place] [address] Cervicalgia Social History Tobacco Use Types Packs/Day [...] Description 01/19/2025 2:20 PM EST Office Visit [facility] WALK-IN CENTER 230 [place] [address] 02/03/2025 11:00 AM EST Medication Management [facility] MEDICINE 230 [place] [address] Yuri Pierre, PharmD 230 [place] [address] 04/04/2025 10:00 AM EST Telemedicine [facility] CHC MED & PEDS 505 [place] [address] Azeb Hall, RN 505 [place] [address] documented as of this encounter Goals Goal Patient Goal Type Associated Problems Recent Progress Patient-Stated? Author Blood Pressure < 140/90 Blood Pressure 120/70(2024 12:56 PM EST) No Aida Ragland, PharmD Record Your Blood Sugar As Directed General No Aida Ragland PharmD Hemoglobin A1c < 7 Result Component 6.6( 12:59 PM EST) No Aida Ragland PharmD documented as of this encounter Visit Diagnoses Diagnosis Cervicalgia documented in this encounter Additional Health Concerns Assessment Noted Time PHQ-9 Depression Total Score: 025 5:30 PM EDT documented as of this encounter Care Teams Forms Analyst Relationship Specialty Start Date End Date Sariah Vickers ANP 230 [place] [address] PCP - General Family Medicine 09/23/19 Yuri Pierre, MikeD 230 [place] [address] Pharmacist Internal Medicine 05/05/24 Basilio Hall MD 596 [place] [address] Cardiology 05/17/24 01/10/25 Ron Preciado MD 5 [place] [address] Pulmonary Disease 05/17/24 Felipe Alanis MD [address] [place] [address] Cardiology 01/11/25 Rosemary Moses NP [address] [place] [address] Urology 01/11/25 Jodee Umm [address] [place] [address] Gastroenterology 01/11/25 documented as of this encounter
--- OUTSIDE RECORDS SUMMARY | 2025-01-19 14:01 | XMS_ITS | Encounter Summary ---
Author Organization [employer] Address 75 [facility] 7t [place] [address] Care Team Providers Care Scaffold Setter Name Role Phone Sariah Vickers Primary Care Provider Yuri Pierre PharmD Unavailable Basilio Hall MD Unavailable [phone] Ron Preciado MD Unavailable [phone] Felipe Alanis MD Unavailable Rosemary Moses NP Unavailable May Unavailable Reason for Visit * Reason Onset Date Comments Med Refill 02/04/2024 Encounter Details Date Type Department Care Team (Late st Contact Info) Description 02/04/2024 Telephone [facility] MEDICINE 230 [place] [address] Sariah Vickers ANP 230 [place] [address] Med Refill Social History Tobacco Use Types [...] [facility] - [place], [place] - [address] [place] [address] documented in this encounter Plan of Treatment Upcoming Encounters Date Type Department Care Team ([facility] st Contact Info) Description 01/19/2025 2:20 PM EST Office Visit [facility] WALK-IN CENTER [address] [place] [address] 02/03/2025 11:00 AM EST Medication Management [facility] MEDICINE [address] [place] [address] Yuri Pierre, PharmD 230 [place] [address] 04/04/2025 10:00 AM EST Telemedicine [facility] CHC MED & PEDS 505 [place] [address] Azeb Hall, MARTIN 505 [place] [address] documented as of this encounter Goals Goal Patient Goal Type Associated Problems Recent Progress Patient-Stated? Author Blood Pressure < 140/90 Blood Pressure 120/70(2024 12:56 PM EST) No Phanis-Gambl Aida urbina, PharmD Record Your Blood Sugar As Directed General No Piers-Gambl Veronica urbinasa, PharmD Hemoglobin A1c < 7 Result Component 6.6( 12:59 PM EST) No Piers-Gambl eAida, PharmD documented as of this encounter Visit Diagnoses Not on filedocumented in this encounter Additional Health Concerns Assessment Noted Time PHQ-9 Depression Total Score: 12 024 2:58 PM EDT documented as of this encounter Care Teams Scaffold Setter Relationship Specialty Start Date End Date Sariah Vickers ANP 230 [place] [address] PCP - General Family Medicine 09/23/19 Yuri Pierre, MikeD 230 [place] [address] Pharmacist Internal Medicine 05/05/24 Basilio Hall MD 5[address] [place] [address] Cardiology 05/17/24 01/10/25 Ron Preciado MD 5 [place] [address] Pulmonary Disease 05/17/24 Felipe Alanis MD [address] 3rd [place] [address] Cardiology 01/11/25 Rosemary Moses NP [address] [place] [address] Urology 01/11/25 Jodee, May [address] 3rd [place] [address] Gastroenterology 01/11/25 documented as of this encounter
--- OUTSIDE RECORDS SUMMARY | 2025-01-19 14:01 | XMS_ITS | Encounter Summary ---
Author Organization [employer] Address 75 [facility] 7t [place] [address] Care Team Providers Care Hand Candy Dipper Name Role Phone Sariah Vickers Primary Care Provider Yuri Pierre PharmD Unavailable Basilio Hall MD Unavailable Ron Preciado MD Unavailable [phone] Felipe Alanis MD Unavailable Rosemary Moses NP Unavailable May Unavailable Encounter Details Date Type Department Care Team (Late st Contact Info) Description 02/05/2022 Abstract [facility] MEDICINE 230 [place], [place] [phone] Sariah Vickers ANP 230 [place] [address] Social History Tobacco Use Types Packs/Day Years [...] Description 01/19/2025 2:20 PM EST Office Visit [facility] WALK-IN CENTER [address] [place] [address] 02/03/2025 11:00 AM EST Medication Management [facility] MEDICINE 230 [place] [address] Yuri Pierre, PharmD [address] [place] [address] 04/04/2025 10:00 AM EST Telemedicine [facility] CHC MED & PEDS 505 [place] [address] Azeb Hall, RN 505 [place] [address] documented as of this encounter Visit Diagnoses Not on filedocumented in this encounter Care Teams Hand Candy Dipper Relationship Specialty Start Date End Date Sariah Vickers ANP [address] [place] [address] PCP - General Family Medicine 09/23/19 Yuri Pierre, PharmD [address] [place] [address] Pharmacist Internal Medicine 05/05/24 Basilio Hall MD 596 [place] [address] Cardiology 05/17/24 01/10/25 Ron Preciado MD 5 [place] [address] Pulmonary Disease 05/17/24 Felipe Alanis MD [address] 3rd [place] [address] Cardiology 01/11/25 Rosemary Moses NP [address] [place] [address] Urology 01/11/25 Jodee Umm [address]rd [place] [address] Gastroenterology 01/11/25 documented as of this encounter
--- OUTSIDE RECORDS SUMMARY | 2025-01-19 14:01 | XMS_ITS | Encounter Summary ---
Author Organization [employer] Address 75 [facility] 7t [place] [address] Care Team Providers Care Mergers And Acquisitions Consultant Name Role Phone Sariah Vickers Primary Care Provider Yuir Pierre PharmD Unavailable Basilio Hall MD Unavailable [phone] Ron Preciado MD Unavailable [phone] Felipe Alanis MD Unavailable Rosemary Moses NP Unavailable May Unavailable Reason for Visit * Reason Comments Med Refill Encounter Details Date Type Department Care Team (Late st Contact Info) Description 03/09/2024 Refill [facility] CHC MED & PEDS [address] [place] [address] Sariah Vickers ANP 230 [place] [address] Neck pain Social History Tobacco Use Types [...] Description 01/19/2025 2:20 PM EST Office Visit [facility] WALK-IN CENTER 230 [place] [address] 02/03/2025 11:00 AM EST Medication Management [facility] MEDICINE 230 [place] [address] Yuri Pierre, PharmD 230 [place] [address] 04/04/2025 10:00 AM EST Telemedicine [facility] CHC MED & PEDS 505 [place] [address] Azeb Hall, MARTIN 505 [place] [address] documented as of this encounter Goals Goal Patient Goal Type Associated Problems Recent Progress Patient-Stated? Author Blood Pressure < 140/90 Blood Pressure 120/70(2024 12:56 PM EST) No Aida Ragland, PharmD Record Your Blood Sugar As Directed General No Aida Ragland PharmD Hemoglobin A1c < 7 Result Component 6.6( 5 12:59 PM EST) No Aida Ragland PharmD documented as of this encounter Visit Diagnoses Diagnosis Neck pain Cervicalgia documented in this encounter Additional Health Concerns Assessment Noted Time PHQ-9 Depression Total Score: 12 024 2:58 PM EDT documented as of this encounter Care Teams Mergers And Acquisitions Consultant Relationship Specialty Start Date End Date Sariah Vickers ANP 230 [place] [address] PCP - General Family Medicine 09/23/19 Yuri Pierre, MikeD [address] [place] [address] Pharmacist Internal Medicine 05/05/24 Basilio Hall MD 596 [place] [address] Cardiology 05/17/24 01/10/25 Ron Preciado MD 5 [place] [address] Pulmonary Disease 05/17/24 Felipe Alanis MD 11 [facility] 3rd [place] [address] Cardiology 01/11/25 Rosemary Moses NP [address] [place] [address] Urology 01/11/25 Jodee Umm 11 [facility] 3rd [place] [address] Gastroenterology 01/11/25 documented as of this encounter
--- OUTSIDE RECORDS SUMMARY | 2025-01-19 14:01 | XMS_ITS | Encounter Summary ---
Author Organization [employer] Address 75 [facility] 7t [place] [address] Care Team Providers Care Roll Forming Machine Set Up Operator Name Role Phone Sariah Vickers Primary Care Provider Yuri Pierre PharmD Unavailable Basilio Hall MD Unavailable [phone] Ron Preciado MD Unavailable [phone] Felipe Alanis MD Unavailable Rosemary Moses NP Unavailable May Unavailable Reason for Visit * Reason Comments Med Refill Encounter Details Date Type Department Care Team (Late st Contact Info) Description 08/22/2023 Refill [facility] MEDICINE 230 [place] [address] Sariah Vickers ANP 230 [place] [address] Neck pain Social History Tobacco Use Types [...] Description 01/19/2025 2:20 PM EST Office Visit [facility] WALK-IN CENTER 230 [place] [address] 02/03/2025 11:00 AM EST Medication Management [facility] MEDICINE 230 [place] [address] Yuri Pierre, MikeD 230 [place] [address] 04/04/2025 10:00 AM EST Telemedicine [facility] CHC MED & PEDS [address] [place] [address] Azeb Hall, MARTIN 505 [place] [address] documented as of this encounter Goals Goal [...] as of this encounter Care Teams Roll Forming Machine Set Up Operator Relationship Specialty Start Date End Date Sariah Vickers, ANP 230 [place] [address] PCP - General Family Medicine 09/23/19 Yuri Pierre, MikeD [address] [place] [address] Pharmacist Internal Medicine 05/05/24 Basilio Hall MD 596 [place] [address] Cardiology 05/17/24 01/10/25 Ron Preciado MD 5 [place] [address] Pulmonary Disease 05/17/24 Felipe Alanis MD 11 [facility] 3rd [place] [address] Cardiology 01/11/25 Rosemary Moses NP [address] [place] [address] Urology 01/11/25 Jodee May 11 [facility] 3rd [place] [address] Gastroenterology 01/11/25 documented as of this encounter
--- OUTSIDE RECORDS SUMMARY | 2025-01-19 14:01 | XMS_ITS | Encounter Summary ---
Author Organization [employer] Address 75 [facility] 7t [place] [address] Care Team Providers Care Career Transition Specialist Name Role Phone Alee Sariah PAGE Primary Care Provider Yuri Pierre PharmD Unavailable [phone] Basilio Hall MD Unavailable Ron Preciado MD Unavailable [phone] Felipe Alanis MD Unavailable Rosemary Moses NP Unavailable EllsworthMay Unavailable Encounter Details Date Type Department Care Team (Late st Contact Info) Description 01/09/2022 Abstract [facility] ADULT DENTAL [address] [place] [address] [phone] Dental, Provider, DDS Social History Tobacco Use [...] Description 01/19/2025 2:20 PM EST Office Visit [facility] WALK-IN CENTER 230 [place], [place] [phone] 02/03/2025 11:00 AM EST Medication Management [facility] MEDICINE 230 [place], [place] [phone] Yuri Pierre, PharmD 230 [place] [address] 04/04/2025 10:00 AM EST Telemedicine [facility] CHC MED & PEDS [address] [place] [address] Azeb Hall, RN [address] [place] [address] documented as of this encounter Procedures Procedure [...] Sariah Vickers ANP 230 [place] [address] PCP - General Family Medicine 09/23/19 Yuri Pierre, MikeD 230 [place] [address] Pharmacist Internal Medicine 05/05/24 Basilio Hall MD 596 [place] [address] Cardiology 05/17/24 01/10/25 Ron Preciado MD 5 [place] [address] Pulmonary Disease 05/17/24 Felipe Alanis MD 11 [facility] 3rd [place] [address] Cardiology 01/11/25 Rosemary Moses NP [address] [facility] [address] [place] [address] Urology 01/11/25 Jodee Umm [address] [place] [address] 3rd [place] [address] Gastroenterology 01/11/25 documented as of this encounter
--- OUTSIDE RECORDS SUMMARY | 2025-01-19 14:01 | XMS_ITS | Encounter Summary ---
Author Organization [email or web address] Address 75 [facility] 7t [place] [address] Care Team Providers Care Catalogue Illustrator Name Role Phone Sariah Vickers KAYLEE Primary Care Provider Yuri Pierre PharmD Unavailable [phone] Basilio Hall MD Unavailable Ron Preciado MD Unavailable [phone] Felipe Alanis MD Unavailable [phone] Rosemary Moses NP Unavailable EllsworthMay Unavailable Encounter Details Date Type Department Care Team (Latest Contact Info) Description 06/20/2021 Abstract [facility] CONVERSIONS Dental, Provider, DDS Social [...] Description 01/19/2025 2:20 PM EST Office Visit [facility] WALK-IN CENTER 230 [place], [place] [phone] 02/03/2025 11:00 AM EST Medication Management [facility] MEDICINE 230 [place], [place] [phone] Yuri Pierre, PharmD 230 [place], [place] [phone] 04/04/2025 10:00 AM EST Telemedicine [facility] CHC MED & PEDS 505 [place] [address] Azeb Hall, RN 505 [place] [address] documented as of this encounter Visit Diagnoses Not on filedocumented in this encounter Care Teams Catalogue Illustrator Relationship Specialty Start Date End Date Sariah Vickers ANP 230 [place] [address] PCP - General Family Medicine 09/23/19 Yuri Pierre, MikeD [address] [place] [address] Pharmacist Internal Medicine 05/05/24 Basilio Hall MD [address] [place] [address] Cardiology 05/17/24 01/10/25 Ron Preciado MD [address] [place] [address] Pulmonary Disease 05/17/24 Felipe Alanis MD [address] [place] [address] Cardiology 01/11/25 Rosemary Moses NP [address] [place] [address] Urology 01/11/25 Jodee Umm [address] [facility] [address] [place] [address] Gastroenterology 01/11/25 documented as of this encounter
--- OUTSIDE RECORDS SUMMARY | 2025-01-19 14:01 | XMS_ITS | Encounter Summary ---
Author Organization [email or web address] Address 75 [facility] 7t [place] [address] Care Team Providers Care Clamshell Operator Name Role Phone Sariah Vickers Primary Care Provider Yuri Pierre PharmD Unavailable Basilio Hall MD Unavailable Ron Preciado MD Unavailable [phone] Felipe Alanis MD Unavailable [phone] Rosemary Moses NP Unavailable May Unavailable Reason for Visit * Reason Comments Med Refill Encounter Details Date Type Department Care Team (Late st Contact Info) Description 02/06/2022 Refill [facility] MEDICINE 230 [place] [address] Sariah Vickers ANP 230 [place] [address] Social History Tobacco Use Types Packs/Day Years [...] Description 01/19/2025 2:20 PM EST Office Visit [facility] [address] [place] [address] 02/03/2025 11:00 AM EST Medication Management [facility] MEDICINE 230 [place] [address] Yuri Pierre, PharmBear 230 [place] [address] 04/04/2025 10:00 AM EST Telemedicine [facility] MED & PEDS 505 [place], [place] [phone] Azeb Hall, MARTIN 505 [place] [address] documented as of this encounter Visit Diagnoses Not on filedocumented in this encounter Care Teams Clamshell Operator Relationship Specialty Start Date End Date Sariah Vickers ANP [address] [place] [address] PCP - General Family Medicine 09/23/19 Yuri Pierre, PharmD [address] [place] [address] Pharmacist Internal Medicine 05/05/24 Basilio Hall MD 596 [place] [address] Cardiology 05/17/24 01/10/25 Ron Preciado MD [address] [place] [address] Pulmonary Disease 05/17/24 Felipe Alanis MD [address] 3rd [place] [address] Cardiology 01/11/25 Rosemary Moses NP [address] [place] [address] Urology 01/11/25 Jodee Umm [address] 3rd [place] [address] Gastroenterology 01/11/25 documented as of this encounter
--- OUTSIDE RECORDS SUMMARY | 2025-01-19 14:01 | XMS_ITS | Encounter Summary ---
Author Organization [employer] Address 75 [facility] 7t [place] [address] Care Team Providers Care Starch Dumper Name Role Phone Sariah Vickers Primary Care Provider Yuri Pierre PharmD Unavailable Basilio Hall MD Unavailable Ron Preciado MD Unavailable [phone] Felipe Alanis MD Unavailable Rosemary Moses NP Unavailable May Unavailable Reason for Visit * Reason Onset Date Comments Med Refill 09/18/2023 Encounter Details Date Type Department Care Team (Late st Contact Info) Description 09/18/2023 Telephone [facility] MEDICINE 230 [place], [place] [phone] Sariah Vickers ANP 230 [place] [address] Med Refill Social History Tobacco Use Types [...] refill : Tramadol To be sent to: [facility] - [place], [place] - [address] [place] [address] documented in this encounter Plan of Treatment Upcoming Encounters Date Type Department Care Team ([facility] st Contact Info) Description 01/19/2025 2:20 PM EST Office Visit [facility] [address] [place] [address] 02/03/2025 11:00 AM EST Medication Management [facility] MEDICINE [address] [place] [address] Yuri Pierre, PharmD 230 [place] [address] 04/04/2025 10:00 AM EST Telemedicine [facility] MED & PEDS 505 [place] [address] Azeb Hall, MARTIN 505 [place] [address] documented as of this encounter Goals Goal Patient Goal Type Associated Problems Recent Progress Patient-Stated? Author Blood Pressure < 140/90 Blood Pressure 120/70(2024 12:56 PM EST) No Phanis-Gambl Aida urbina, PharmD Record Your Blood Sugar As Directed General No Phanis-Gambl Veronica urbinasa, PharmD Hemoglobin A1c < 7 Result Component 6.6( 12:59 PM EST) No Phanis-Dileepl Aida urbina, PharmD documented as of this encounter Visit Diagnoses Not on filedocumented in this encounter Additional Health Concerns Assessment Noted Time PHQ-9 Depression Total Score: 2 06/23/19 24 2:10 PM EDT documented as of this encounter Care Teams Starch Dumper Relationship Specialty Start Date End Date Sariah Vickers ANP 230 [place] [address] PCP - General Family Medicine 09/23/19 Yuri Pierre, MikeD 230 [place] [address] Pharmacist Internal Medicine 05/05/24 Basilio Hall MD 596 [place] [address] Cardiology 05/17/24 01/10/25 Ron Preciado MD 5 [place] [address] Pulmonary Disease 05/17/24 Felipe Alanis MD [address] 3rd [place] [address] Cardiology 01/11/25 Rosemary Moses NP [address] [place] [address] Urology 01/11/25 Jodee, May [address] 3rd Floor [place] Garcia [address] Gastroenterology 01/11/25 documented as of this encounter
--- OUTSIDE RECORDS SUMMARY | 2025-01-19 14:01 | XMS_ITS | Encounter Summary ---
Author Organization [employer] Address 75 [facility] 7t [place] [address] Care Team Providers Care Boat Canvas Installer Name Role Phone Sariah Vickers Primary Care Provider Yuri Pierre PharmD Unavailable Basilio Hall MD Unavailable Ron Preciado MD Unavailable Felipe Alanis MD Unavailable Rosemary Moses NP Unavailable May Unavailable Reason for Visit * Reason Comments Med Refill Encounter Details Date Type Department Care Team (Late st Contact Info) Description 03/03/2022 Refill [facility] MEDICINE 230 [place] [address] Sariah Vickers ANP 230 [place] [address] Social History Tobacco Use Types Packs/Day Years [...] 2:20 PM EST Office Visit [facility] [address] [place] [address] 02/03/2025 11:00 AM EST Medication Management [facility] MEDICINE 230 [place] [address] Yuri Pierre, PharmD [address] [place] [address] 04/04/2025 10:00 AM EST Telemedicine [facility] MED & PEDS 505 [place] [address] Azeb Hall, RN 505 [place] [address] documented as of this encounter Visit Diagnoses Not on filedocumented in this encounter Care Teams Boat Canvas Installer Relationship Specialty Start Date End Date Sariah Vickers ANP [address] [place] [address] PCP - General Family Medicine 09/23/19 Yuri Pierre, PharmD [address] [place] [address] Pharmacist Internal Medicine 05/05/24 Basilio Hall MD 596 [place] [address] Cardiology 05/17/24 01/10/25 Ron Preciado MD [address] [place] [address] Pulmonary Disease 05/17/24 Felipe lAanis MD [address] 3rd [place] [address] Cardiology 01/11/25 Rosemary Moses NP [address] [place] [address] Urology 01/11/25 Jodee Umm [address] 3rd [place] [address] Gastroenterology 01/11/25 documented as of this encounter
--- OUTSIDE RECORDS SUMMARY | 2025-01-19 14:01 | XMS_ITS | Encounter Summary ---
Author Organization [employer] Address 75 [facility] 7t [place] [address] Care Team Providers Care Electroformer Name Role Phone Sariah Vickers Primary Care Provider Yuri Pierre PharmD Unavailable [phone] Basilio Hall MD Unavailable Ron Preciado MD Unavailable [phone] Felipe Alanis MD Unavailable Rosemary Moses NP Unavailable May Unavailable Reason for Visit * Reason Onset Date Comments Nurse Triage 11/01/2022 Encounter Details Date Type Department Care Team (Late st Contact Info) Description 11/01/2022 Telephone [facility] MEDICINE 230 [place] [address] Sariah Vickers ANP 230 [place] [address] Nurse Triage Social History Tobacco Use Types [...] 11/01/2022 3:51 PM EDT Triage call with [place] [employer] ID [id number] Pt reports blood sugars have been high [...] Description 01/19/2025 2:20 PM EST Office Visit [facility]ALK[facility] 230 [place] [address] 02/03/2025 11:00 AM EST Medication Management [facility] MEDICINE 230 [place] [address] Yuri Pierre, PharmD 230 [place] [address] 04/04/2025 10:00 AM EST Telemedicine [facility] MED & PEDS 505 [place] [address] Azeb Hall, RN 505 [place], [place] documented as of this encounter Goals Goal Patient Goal Type Associated Problems Recent Progress Patient-Stated? Author Blood Pressure < 140/90 Blood Pressure 120/70(2024 12:56 PM EST) No Piers-Gambl e, Aida, PharmD Record Your Blood Sugar As Directed General No Piers-Gambl e, Aida, PharmD Hemoglobin A1c < 7 Result Component 6.6( 12:59 PM EST) No Piers-Gambl e, Aida, PharmD documented as of this encounter Visit Diagnoses Not on filedocumented in this encounter Care Teams Electroformer Relationship Specialty Start Date End Date Sariah Vickers ANP 230 [place] [address] PCP - General Family Medicine 09/23/19 Yuri Pierre, MikeD 230 [place] [address] Pharmacist Internal Medicine 05/05/24 Basilio Hall MD 596 [place] [address] Cardiology 05/17/24 01/10/25 Ron Preciado MD 5 [place] [address] Pulmonary Disease 05/17/24 Felipe Alanis MD [address] 3rd [place] [address] Cardiology 01/11/25 Rosemary Moses NP [address] [place] [address] Urology 01/11/[address] 3rd Floor [place] [address] Gastroenterology 01/11/25 documented as of this encounter
--- OUTSIDE RECORDS SUMMARY | 2025-01-19 14:01 | XMS_ITS | Encounter Summary ---
Author Organization [employer] Address 75 [facility] 7t [place] [address] Care Team Providers Care Lead Mobile Developer Name Role Phone Sariah Vickers Primary Care Provider Yuir Pierre PharmD Unavailable Basilio Hall MD Unavailable Ron Preciado MD Unavailable [phone] Felipe Alanis MD Unavailable [phone] Rosemary Moses NP Unavailable May Unavailable Reason for Visit * Reason Onset Date Comments Durable Medical Equipment 03/15/2022 Encounter Details Date Type Department Care Team (Late st Contact Info) Description 03/15/2022 Telephone [facility] MEDICINE 230 [place] [address] Sariah Vickers ANP 230 [place] [address] Durable Medical Equipment Social History Tobacco Use [...] Description 01/19/2025 2:20 PM EST Office Visit [facility] WALK[facility]IN CENTER [address] [place] [address] 02/03/2025 11:00 AM EST Medication Management [facility] MEDICINE 230 [place] [address] Yuri Pierre, PharmBear [address] [place] [address] 04/04/2025 10:00 AM EST Telemedicine [facility] CHC MED & PEDS 505 [place] [address] Azeb Hall, MARTIN 505 [place] [address] documented as of this encounter Visit Diagnoses Not on filedocumented in this encounter Care Teams Lead Mobile Developer Relationship Specialty Start Date End Date Sariah Vickers ANP [address] [place] [address] PCP - General Family Medicine 09/23/19 Yuri Pierre, PharmD [address] [place] [address] Pharmacist Internal Medicine 05/05/24 Basilio Hall MD 596 [place] [address] Cardiology 05/17/24 01/10/25 Ron Preciado MD 5 [place] [address] Pulmonary Disease 05/17/24 Felipe Alanis MD [address] 3rd [place] [address] Cardiology 01/11/25 Rosemary Moses NP [address] [place] [address] Urology 01/11/25 Jodee Umm [address] 3rd [place] [address] Gastroenterology 01/11/25 documented as of this encounter
--- OUTSIDE RECORDS SUMMARY | 2025-01-19 14:01 | XMS_ITS | Encounter Summary ---
Author Organization [employer] Address 75 [facility] 7t [place] [address] Care Team Providers Care Blueprint Duplicator Name Role Phone Sariah Vickers Primary Care Provider Yuri Pierre PharmD Unavailable [phone] Basilio Hall MD Unavailable Ron Preciado MD Unavailable [phone] Felipe Alanis MD Unavailable Rosemary Moses NP Unavailable May Unavailable Reason for Visit * Reason Comments Med Refill Encounter Details Date Type Department Care Team (Late st Contact Info) Description 12/07/2024 Refill [facility] 230 [place] [address] Sariah Vickers ANP 230 [place] [address] Social History Tobacco Use Types Packs/Day Years [...] Description 01/19/2025 2:20 PM EST Office Visit [facility] 230 [place] [address] 02/03/2025 11:00 AM EST Medication Management [facility] MEDICINE 230 [place] [address] Yuri Pierre, PharmD 230 [place] [address] 04/04/2025 10:00 AM EST Telemedicine [facility] MED & PEDS 505 [place] [address] Azeb Hall, RN 505 [place] [address] documented as of this encounter Goals Goal [...] documented as of this encounter Care Teams Blueprint Duplicator Relationship Specialty Start Date End Date Sariah Vickers ANP 230 [place] [address] PCP - General Family Medicine 09/23/19 Yuri Pierre, MikeD 230 [place] [address] Pharmacist Internal Medicine 05/05/24 Basilio Hall MD 596 [place] [address] Cardiology 05/17/24 01/10/25 Ron Preciado MD 5 [place] [address] Pulmonary Disease 05/17/24 Felipe Alanis MD [address]rd [place] [address] Cardiology 01/11/25 Rosemary Moses NP [address] [place] [address] Urology 01/11/25 Jodee Umm [address]rd [place] [address] Gastroenterology 01/11/25 documented as of this encounter
--- OUTSIDE RECORDS SUMMARY | 2025-01-19 14:01 | XMS_ITS | Encounter Summary ---
Author Organization [employer] Address 75 [facility] 7t [place] [address] Care Team Providers Care Capture Manager Name Role Phone Sariah Vickers Primary Care Provider [phone] Yuri Pierre PharmD Unavailable [phone] Basilio Hall MD Unavailable [phone] Ron Preciado MD Unavailable [phone] Felipe Alanis MD Unavailable [phone] Rosemary Moses NP Unavailable May Unavailable Reason for Visit * Reason Comments Med Refill Encounter Details Date Type Department Care Team (Late st Contact Info) Description 10/03/2023 Refill [facility] 230 [place] [address] Sariah Vickers ANP 230 [place] [address] Chronic SI joint pain Social History Tobacco [...] 2:20 PM EST Office Visit [facility] 230 [place] [address] 02/03/2025 11:00 AM EST Medication Management [facility] MEDICINE 230 [place] [address] Yuri Pierre, PharmD 230 [place] [address] 04/04/2025 10:00 AM EST Telemedicine [facility] MED & PEDS 505 [place] [address] Azeb Hall, MARTIN 505 [place] [address] documented as of this encounter Goals Goal [...] documented as of this encounter Care Teams Capture Manager Relationship Specialty Start Date End Date Sariah Vickers ANP 230 [place] [address] PCP - General Family Medicine 09/23/19 Yuri Pierre, MikeD 230 [place] [address] Pharmacist Internal Medicine 05/05/24 Basilio Hall MD 596 [place] [address] Cardiology 05/17/24 01/10/25 Ron Preciado MD [address] [place] [address] Pulmonary Disease 05/17/24 Felipe Alanis MD 11 [facility] 3rd [place] [address] Cardiology 01/11/25 Rosemary Moses NP [address] [place] [address] Urology 01/11/25 Umm Ell[place] 11 [facility] 3rd [place] [address] Gastroenterology 01/11/25 documented as of this encounter
--- OUTSIDE RECORDS SUMMARY | 2025-01-19 14:01 | XMS_ITS | Encounter Summary ---
Author Organization [employer] Address 75 [facility] 7t [place] [address] Care Team Providers Care Failure Analysis Engineer Name Role Phone Sariah Vickers Primary Care Provider Yuri Pierre PharmD Unavailable Basilio Hall MD Unavailable Ron Preciado MD Unavailable [phone] Felipe Alanis MD Unavailable Rosemary Moses NP Unavailable May Unavailable Reason for Visit * Reason Comments Med Refill Encounter Details Date Type Department Care Team (Late st Contact Info) Description 12/02/2024 Refill [facility] CH[facility] MED & PEDS [address] [place], [place] [phone] Sariah Vickers ANP 230 [place] [address] Type 2 diabetes mellitus with diabetic neuropathy, [...] ([facility] st Contact Info) Description 01/19/2025 2:20 PM EST Office Visit [facility] WALK[facility]IN [facility] 230 [place] [address] 02/03/2025 11:00 AM EST Medication Management [facility] MEDICINE 230 [place] [address] Yuri Pierre, PharmD 230 [place] [address] 04/04/2025 10:00 AM EST Telemedicine [facility] CHC MED & PEDS 505 [place] [address] Azeb Hall, RN 505 [place] [address] documented as of this encounter Goals Goal Patient Goal Type Associated Problems Recent Progress Patient-Stated? Author Blood Pressure < 140/90 Blood Pressure 120/70(2024 12:56 PM EST) No Aida Ragland PharmD Record [...] documented as of this encounter Care Teams Failure Analysis Engineer Relationship Specialty Start Date End Date Sariah Vickers ANP 230 [place] [address] PCP - General Family Medicine 09/23/19 Yuri Pierre, MikeD [address] [place] [address] Pharmacist Internal Medicine 05/05/24 Basilio Hall MD 596 [place] [address] Cardiology 05/17/24 01/10/25 Ron Preciado MD 5 [place] [address] Pulmonary Disease 05/17/24 Felipe Alanis MD 11 [facility] 3rd [place] [address] Cardiology 01/11/25 Rosemary Moses NP [address] [facility] [address] [place] [address] Urology 01/11/25 Jodee Umm [address]rd [place] [address] Gastroenterology 01/11/25 documented as of this encounter
--- OUTSIDE RECORDS SUMMARY | 2025-01-19 14:01 | XMS_ITS | Encounter Summary ---
Author Organization [employer] Address 75 [facility] 7t [place] [address] Care Team Providers Care Electrical Wiring Lineman Name Role Phone Sariah Vickers KAYLEE Primary Care Provider Yuri Pierre PharmD Unavailable [phone] Basilio Hall MD Unavailable Ron Preciado MD Unavailable [phone] Felipe Alanis MD Unavailable Rosemary Moses NP Unavailable EllsworthMay Unavailable Encounter Details Date Type Department Care Team (Latest Contact Info) Description 04/14/2020 Abstract [facility] CONVERSIONS Dental, Provider, DDS Social [...] Upcoming Encounters Date Type Department Care Team ( st Contact Info) Description 01/19/2025 2:20 PM EST Office Visit [facility] WALK-IN CENTER 230 [place], [place] [phone] 02/03/2025 11:00 AM EST Medication Management [facility] MEDICINE 230 [place], [place] [phone] Yuri Pierre, PharmD 230 [place], [place] [phone] 04/04/2025 10:00 AM EST Telemedicine [facility] CHC MED & PEDS 505 [place] [address] Azeb Hall, RN 505 [place] [address] documented as of this encounter Visit Diagnoses Not on filedocumented in this encounter Care Teams Electrical Wiring Lineman Relationship Specialty Start Date End Date Sariah Vickers ANP 230 [place] [address] PCP - General Family Medicine 09/23/19 Yuri Pierre, MikeD [address] [place] [address] Pharmacist Internal Medicine 05/05/24 Basilio Hall MD 596 [place] [address] Cardiology 05/17/24 01/10/25 Ron Preciado MD [address] [place] [address] Pulmonary Disease 05/17/24 Felipe Alanis MD [address]rd [place] [address] Cardiology 01/11/25 Rosemary Moses NP [address] [place] [address] Urology 01/11/25 Jodee Umm [address] [place] [address] Gastroenterology 01/11/25 documented as of this encounter
--- OUTSIDE RECORDS SUMMARY | 2025-01-19 14:01 | XMS_ITS | Encounter Summary ---
Author Organization [employer] Address 75 [facility] 7t [place] [address] Care Team Providers Care [employer] Portal Consultant Name Role Phone Sariah Vickers Primary Care Provider Yuri Pierre PharmD Unavailable Basilio Hall MD Unavailable [phone] Ron Preciado MD Unavailable [phone] Felipe Alanis MD Unavailable Rosemary Moses NP Unavailable May Unavailable Encounter Details Date Type Department Care Team (Late st Contact Info) Description 11/23/2024 Orders Only [facility] MEDICINE 230 [place], [place] [phone] Sariah Vickers ANP 230 [place], [place] [phone] Social History Tobacco Use Types Packs/Day Years [...] [facility] [address] [place] [address] 02/03/2025 11:00 AM EST Medication Management [facility] MEDICINE 230 [place] [address] Yuri Pierre, PharmD 230 [place] [address] 04/04/2025 10:00 AM EST Telemedicine [facility] CHC MED & PEDS 505 [place] [address] Azeb Hall, RN 505 [place] [address] documented as of this encounter Goals Goal [...] as of this encounter Care Teams [employer] Portal Consultant Relationship Specialty Start Date End Date Sariah Vickers ANP 230 [place] [address] PCP - General Family Medicine 09/23/19 Yuri Pierre, MikeD 230 [place] [address] Pharmacist Internal Medicine 05/05/24 Basilio Hall MD 596 [place] [address] Cardiology 05/17/24 01/10/25 Ron Preciado MD 5 [place] [address] Pulmonary Disease 05/17/24 Felipe Alanis MD [address] [place] [address] Cardiology 01/11/25 Rosemary Moses NP [address] [place] [address] Urology 01/11/25 Jodee May [address]rd [place] [address] Gastroenterology 01/11/25 documented as of this encounter
--- OUTSIDE RECORDS SUMMARY | 2025-01-19 14:02 | XMS_ITS | Encounter Summary ---
Author Organization [email or web address] Address 75 [facility] 7t [place] [address] Care Team Providers Care Test Deck Supervisor Name Role Phone Sariah Vickers Primary Care Provider Yuri Pierre PharmD Unavailable [phone] Basilio Hall MD Unavailable Ron Preciado MD Unavailable [phone] Felipe Alanis MD Unavailable Rosemary Moses NP Unavailable May Unavailable Reason for Visit * Reason Comments Med Refill Encounter Details Date Type Department Care Team (Late st Contact Info) Description 01/06/2024 Refill [facility] MED & PEDS [address] [place] [address] Sariah Vickers ANP 230 [place] [address] Cervicalgia Social History Tobacco Use Types Packs/Day [...] 01/19/2025 2:20 PM EST Office Visit [facility] WALK[facility]IN CENTER 230 [place] [address] 02/03/2025 11:00 AM EST Medication Management [facility] MEDICINE 230 [place] [address] Yuri Pierre, PharmD 230 [place] [address] 04/04/2025 10:00 AM EST Telemedicine [facility] CHC MED & PEDS 505 [place] [address] Azeb Hall, MARTIN 505 [place] [address] documented as of this encounter Goals Goal Patient Goal Type Associated Problems Recent Progress Patient-Stated? Author Blood Pressure < 140/90 Blood Pressure 120/70(2024 12:56 PM EST) No Aida Ragland, PharmBear Record Your [...] as of this encounter Care Teams Test Deck Supervisor Relationship Specialty Start Date End Date Sariah Vickers ANP 230 [place] [address] PCP - General Family Medicine 09/23/19 Yuri Pierre, MikeD [address] [place] [address] Pharmacist Internal Medicine 05/05/24 Basilio Hall MD 596 [place] [address] Cardiology 05/17/24 01/10/25 Ron Preciado MD 5 [place] [address] Pulmonary Disease 05/17/24 Felipe Alanis MD 11 [facility] 3rd [place] [address] Cardiology 01/11/25 Rosemary Moses NP [address] [place] [address] Urology 01/11/25 Jodee May 11 [facility] 3rd [place] [address] Gastroenterology 01/11/25 documented as of this encounter
--- OUTSIDE RECORDS SUMMARY | 2025-01-19 14:02 | XMS_ITS | Encounter Summary ---
Author Organization [employer] Address [address] [facility] 7t [place] [address] Care Team Providers Care Import Clerk Name Role Phone Sariah Vickers Primary Care Provider Yuri Pierre PharmD Unavailable [phone] Basilio Hall MD Unavailable Ron Preciado MD Unavailable [phone] Felipe Alanis MD Unavailable Rosemary Moses NP Unavailable May Unavailable Reason for Visit * Reason Comments Med Refill Pt wants to know if she can keep taking prednis Encounter Details Date Type Department Care Team (Late st Contact Info) Description 06/26/2024 Refill [facility] [address] [place], [place] [phone] Sariah Vickers ANP [address] [place] [address] Cervicalgia Social History Tobacco Use Types Packs/Day [...] Description 01/19/2025 2:20 PM EST Office Visit [facility] [address] [place] [address] 02/03/2025 11:00 AM EST Medication Management [facility] MEDICINE [address] [place] [address] Yuri Pierre, PharmD [address] [place] [address] 04/04/2025 10:00 AM EST Telemedicine [facility] [address] [place] [address] Azeb Hall, RN [address] [place] [address] documented as of this encounter Goals Goal Patient Goal Type Associated Problems Recent Progress Patient-Stated? Author Blood Pressure < 140/90 Blood Pressure 120/70(2024 12:56 PM EST) No Aida Ragland, PharmD Record Your Blood Sugar As Directed General No Aida Ragland, PharmD Hemoglobin A1c < 7 Result Component 6.6( 12:59 PM EST) No Aida Ragland, PharmD documented as of this encounter Visit Diagnoses Diagnosis Cervicalgia documented in this encounter Additional Health Concerns Assessment Noted Time PHQ-9 Depression Total Score: 12 024 2:58 PM EDT documented as of this encounter Care Teams Import Clerk Relationship Specialty Start Date End Date Sariah Vickers ANP [address] [place] [address] PCP - General Family Medicine 09/23/19 Yuri Pierre, MikeD [address] [place] [address] Pharmacist Internal Medicine 05/05/24 Basilio Hall MD [address] [place] [address] Cardiology 05/17/24 01/10/25 Ron Preciado MD [address] [place] [address] Pulmonary Disease 05/17/24 Felipe Alanis MD [address] [place] [address] Cardiology 01/11/25 Rosemary Moses NP [address] [place] [address] Urology 01/11/25 Umm Ellsworth 11 [facility] [address] [place] [address] Gastroenterology 01/11/25 documented as of this encounter
--- OUTSIDE RECORDS SUMMARY | 2025-01-19 14:02 | XMS_ITS | Encounter Summary ---
Author Organization [employer] Address [address] [facility] 7t [place] [address] Care Team Providers Care Surety Bond Agent Name Role Phone Sariah Vickers Primary Care Provider Yuri Pierre PharmD Unavailable [phone] Basilio Hall MD Unavailable Ron Preciado MD Unavailable [phone] Felipe Alanis MD Unavailable Rosemary Moses NP Unavailable May Unavailable Reason for Visit * Reason Comments Med Refill Encounter Details Date Type Department Care Team (Late st Contact Info) Description 10/17/2023 Refill [facility] [address] [place] [address] Sariah Vickers ANP [address] [place] [address] Neck pain Social History Tobacco Use Types [...] Description 01/19/2025 2:20 PM EST Office Visit [facility] [address] [place] [address] 02/03/2025 11:00 AM EST Medication Management [facility] [address] [place] [address] Yuri Pierre, MikeD [address] [place] [address] 04/04/2025 10:00 AM EST Telemedicine [facility] [address] [place] [address] Azeb Hall, MARTIN [address] [place] [address] documented as of this encounter Goals Goal [...] documented as of this encounter Care Teams Surety Bond Agent Relationship Specialty Start Date End Date Sariah Vickers, ANP [address] [place] [address] PCP - General Family Medicine 09/23/19 Yuri Pierre, MikeD [address] [place] [address] Pharmacist Internal Medicine 05/05/24 Basilio Hall MD [address] [place] [address] Cardiology 05/17/24 01/10/25 Ron Preciado MD 5 [place] [address] Pulmonary Disease 05/17/24 Felipe Alanis MD [address] [place] [address] Cardiology 01/11/25 Rosemary Moses NP [address] [place] [address] Urology 01/11/25 Jodee May [address] [place] [address] Gastroenterology 01/11/25 documented as of this encounter
--- OUTSIDE RECORDS SUMMARY | 2025-01-19 14:02 | XMS_ITS | Encounter Summary ---
Author Organization [employer] Address [address] [facility] [address] 7t [place] [address] Care Team Providers Care Corrugated Sheet Material Sheeter Name Role Phone Sariah Vickers Primary Care Provider Yuri Pierre PharmD Unavailable Basilio Hall MD Unavailable Ron Preciado MD Unavailable [phone] Felipe Alanis MD Unavailable Rosemary Moses NP Unavailable May Unavailable Reason for Visit * Reason Comments Med Refill Patient walked in [facility] hasn't finished her Medbox due to missing refill for medication Gabapetin . Encounter Details Date Type Department Care Team (Late st Contact Info) Description 10/03/2023 Refill [facility] [address] [place], [place] [phone] Sariah Vickers ANP [address] [place], [place] [phone] Chronic SI joint pain Social History Tobacco [...] Description 01/19/2025 2:20 PM EST Office Visit [facility] [address] [place] [address] 02/03/2025 11:00 AM EST Medication Management [facility] [address] [place] [address] Yuri Pierre, PharmD [address] [place] [address] 04/04/2025 10:00 AM EST Telemedicine [facility] [address] [place] [address] Azeb Hall, MARTIN [address] [place] [address] documented as of this encounter Goals Goal Patient Goal Type Associated Problems Recent Progress Patient-Stated? Author Blood Pressure < 140/90 Blood Pressure 120/70(2024 12:56 PM EST) No PhanisAida Cheng, PharmD Record Your Blood Sugar As Directed General No Phanis-Gambl Veronica urbinasa, PharmD Hemoglobin A1c < 7 Result Component 6.6( 12:59 PM EST) No PhanisAida Cheng, PharmD documented as of this encounter Visit Diagnoses Diagnosis Chronic SI joint pain Disorders of sacrum documented in this encounter Additional Health Concerns Assessment Noted Time PHQ-9 Depression Total Score: 12 024 2:58 PM EDT documented as of this encounter Care Teams Corrugated Sheet Material Sheeter Relationship Specialty Start Date End Date Sariah Vickers ANP [address] [place] [address] PCP - General Family Medicine 09/23/19 Yuri Pierre, MikeD [address] [place] [address] Pharmacist Internal Medicine 05/05/24 Basilio Hall MD [address] [place] [address] Cardiology 05/17/24 01/10/25 Ron Preciado MD [address] [place] [address] Pulmonary Disease 05/17/24 Felipe Alanis MD [address] [place] [address] 3rd [place] [address] Cardiology 01/11/25 Rosemary Moses NP [address] [place] [address] Urology 01/11/[address] 3rd [place] [address] Gastroenterology 01/11/25 documented as of this encounter
--- OUTSIDE RECORDS SUMMARY | 2025-01-19 14:02 | XMS_ITS | Encounter Summary ---
Author Organization [employer] Address [address] [facility] 7t [place] [address] Care Team Providers Care Internet Network Specialist Name Role Phone Sariah Vickers Primary Care Provider Yuri Pierre PharmD Unavailable [phone] Basilio Hall MD Unavailable [phone] Ron Preciado MD Unavailable [phone] Felipe Alanis MD Unavailable [phone] Rosemary Moses NP Unavailable May Unavailable Reason for Visit * Reason Comments Med Refill Encounter Details Date Type Department Care Team (Late st Contact Info) Description 11/26/2023 Refill [facility] [address] [place] [address] Sariah Vickers ANP [address] [place] [address] Vertigo Social History Tobacco Use Types Packs/Day [...] 2:20 PM EST Office Visit [facility] [address] [place] [address] 02/03/2025 11:00 AM EST Medication Management [facility] [address] [place] [address] Yuri Pierre, MikeD [address] [place] [address] 04/04/2025 10:00 AM EST Telemedicine [facility] [address] [place] [address] Azeb Hall, MARTIN [address] [place] [address] documented as of this encounter Goals Goal [...] documented as of this encounter Care Teams Internet Network Specialist Relationship Specialty Start Date End Date Sariah Vickers ANP [address] [place] [address] PCP - General Family Medicine 09/23/19 Yuri Pierre, MikeD [address] [place] [address] Pharmacist Internal Medicine 05/05/24 Basilio Hall MD [address] [place] [address] Cardiology 05/17/24 01/10/25 Ron Preciado MD [address] [place] [address] Pulmonary Disease 05/17/24 Felipe Alanis MD 11 [facility] [address] [place] [address] Cardiology 01/11/25 Rosemary Moses NP [address] [place] [address] Urology 01/11/25 Jodee Umm 11 [facility] [address] [place] [address] Gastroenterology 01/11/25 documented as of this encounter
--- OUTSIDE RECORDS SUMMARY | 2025-01-19 14:02 | XMS_ITS | Encounter Summary ---
Author Organization [employer] Address [address] [facility] 7t [place] [address] Care Team Providers Care Director Of Occupational Therapy Name Role Phone Sariah Vickers Primary Care Provider Yuri Pierre PharmD Unavailable [phone] Basilio Hall MD Unavailable Ron Preciado MD Unavailable [phone] Felipe Alanis MD Unavailable [phone] Rosemary Moses NP Unavailable May Unavailable Reason for Visit * Reason Onset Date Comments Med Refill 01/09/2024 Encounter Details Date Type Department Care Team (Late st Contact Info) Description 01/09/2024 Telephone [facility] [address] [place] [address] Sariah Vickers ANP [address] [place] [address] Med Refill Social History Tobacco Use Types [...] Description 01/19/2025 2:20 PM EST Office Visit [facility] [address] [place] [address] 02/03/2025 11:00 AM EST Medication Management [facility] [address] [place] [address] Yuri Pierre, PharmD [address] [place] [address] 04/04/2025 10:00 AM EST Telemedicine [facility] [address] [place] [address] Azeb Hall, MARTIN [address] [place] [address] documented as of this encounter Goals Goal [...] of this encounter Care Teams Director Of Occupational Therapy Relationship Specialty Start Date End Date Sariah Vickers ANP [address] [place] [address] PCP - General Family Medicine 09/23/19 Yuri Pierre, MikeD [address] [place] [address] Pharmacist Internal Medicine 05/05/24 Basilio Hall MD [address] [place] [address] Cardiology 05/17/24 01/10/25 Ron Preciado MD 5 [place] [address] Pulmonary Disease 05/17/24 Felipe Alanis MD [address] [facility] [address] [place] [address] Cardiology 01/11/25 Rosemary Moses NP [address] [place] [address] Urology 01/11/25 Umm Ellsworth 11 [facility] [address] [place] [address] Gastroenterology 01/11/25 documented as of this encounter
--- OUTSIDE RECORDS SUMMARY | 2025-01-19 14:02 | XMS_ITS | Clinical Summary ---
Author Organization [employer] Address [address] [facility] [address] [place] [address] Care Team Providers Care Shingle Grader Name Role Phone Alee Anthony PAGE Primary Care Provider Yuri Pierre PharmD Unavailable Ron Preciado MD Unavailable [phone] Felipe Alanis MD Unavailable Rosemary Moses NP Unavailable Ellsworthmay Unavailable Allergies Active Allergy Reactions Criticality Noted Date [...] mouth in the morning. Active Lactobacillus-Inu namrata ([facility]) capsule 023 Active Xolair 150 MG/ML [...] inhalerIndication s:Severe persistent allergic asthma without complication (HCC) INHALE [...] 3 024 Active lidocaine (Lidoderm) 5 % patchIndications: Chronic bilateral low back pain, unspecified whether sciatica present APPLY 1 PATCH TOPICALLY TO SKIN, LEAVE ON FOR 12 HOURS AND OFF FOR 12 HOURS DIRECTED 30 patch 1 025 Active metoclopramide (Reglan) 5 MG tablet Take 1 tablet by mouth every 6 (six) hours during the day. 025 Active Continuous Glucose Waterproof Bag Cutting 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 ([employer] Jalil [facility] [place] [facility]) device 1 each Once per day. Use as directed for CGM 1 each Active Continuous Glucose Sensor (FreeStyle Jalil 3 Plus Sensor) misc 1 each every 15 days. Apply 1 every 15 days as directed for CGM 2 each Active Ketotifen Fumarate ( Ketotifen Fumarate) 0.035 % solutionIndicatio ns:Allergic conjunctivitis of both eyes Administer 1 drop into affected eye(s) 2 times daily. 10 mL Active insulin lispro (HumaLOG KWIKPEN) 100 UNIT/ML injectionIndicati ons:Type 2 diabetes mellitus with hyperlipidemia (HCC) Take [...] 30 tablet 2025 Active TRUEplus Lancets 33G miscIndications:T ype 2 diabetes mellitus with hyperglycemia (HCC) TEST BLOOD SUGAR FOUR TIMES DAILY 200 each 025 Active Fluticasone-Salme terol 250-50 MCG/ACT aerosol powderIndications :Severe persistent asthma without complication (HCC) INHALE 1 PUFF BY MOUTH TWICE DAILY, RINSE MOUTH AFTER USING. 60 each Active fluticasone (Flonase) 50 MCG/ACT nasal spray INSTILL 2 SPRAYS IN EACH NOSTRIL ONCE DAILY IN THE MORNING 16 g 3 12/31/19 25 2:36 PM EST 025 Active potassium chloride CR (Klor-Con M20) [...] DOES NOT RESPOND. 2 each 1 Active Diclofenac Sodium 1 % gelIndications:Ch ronic bilateral low back pain, unspecified whether sciatica present APPLY 2 GRAMS TOPICALLY TO AFFECTED AREA(S) ONCE DAILY NEEDED FOR PAIN 100 g 1 Active ipratropium-albut keyon (Duo-Neb) 0.5-2.5 mg/3 mL nebulizer solutionIndicatio ns:Severe persistent asthma without complication (HCC) INHALE 1 AMPULE USING A NEBULIZER EVERY 6 HOURS NEEDED 90 mL 5 01/12/20 1:38 PM EST Active TRUEplus Glucose 4 g chewable tabletIndications :Type 2 diabetes mellitus with hyperlipidemia (HCC) CHEW 4 TABLETS NEEDED FOR low blood sugar (LESS THAN 70mg/dL) 50 tablet 12 01/07/20 1:20 PM EST Active acetaminophen (Tylenol) 325 MG tabletIndications :Neck pain TAKE 1 TO 2 TABLETS BY MOUTH EVERY 6 HOURS NEEDED 120 tablet Active semaglutide (Ozempic) 2 MG/1.5ML solution pen-injectorIndic ations:Type 2 diabetes mellitus with hyperlipidemia (HCC) Inject 0.25 mg under the skin 1 (one) time per week. 1 each Active Continuous Glucose Waterproof Bag Cutting 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 (Dexcom G7 Waterproof Bag Cutting 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) deviceIndications :Type 2 diabetes mellitus with hyperlipidemia (HCC) 1 each Once per day for 1 day. 1 each 01/06/20 12:10 PM EST 2024 Active Continuous Glucose Sensor (Dexcom G7 Sensor) miscIndications:T ype 2 diabetes mellitus with hyperlipidemia (HCC) 1 each 3 times daily. Apply 1 sensor every 10 days 3 each 01/06/20 12:10 PM EST 2024 Active gabapentin (Neurontin) 400 MG capsuleIndication s:Chronic SI joint pain Take 1 capsule (400 [...] FOR LOW BLOOD SUGAR 112.5 g 2 01/12/20 1:38 PM EST Active Embecta Pen Needle Lorna 32G X 4 MM miscIndications:T ype 2 diabetes mellitus with hyperlipidemia (HCC) USE DIRECTED THREE TIMES DAILY 100 each 5 01/12/20 25 1:38 PM EST Active traMADol (Ultram) 50 MG tabletIndications :Cervicalgia TAKE 1 TABLET BY MOUTH EVERY TWELVE HOURS NEEDED FOR SEVERE PAIN 60 tablet 01/18/20 9:48 AM EST Active enalapril (Vasotec) 20 MG tabletIndications :Essential hypertension TAKE 1 TABLET BY MOUTH EVERY MORNING 30 tablet 1 Active BD Pen Needle Lorna U/F 32G X 4 MM miscIndications:T ype 2 diabetes mellitus with hyperlipidemia (HCC) USE DIRECTED THREE TIMES DAILY 100 each 5 025 2024 Discontinued Glutose 15 40 % gel oral gel TAKE 15 GRAMS BY MOUTH DAILY NEEDED FOR LOW BLOOD SUGAR 112.5 g 2 025 2024 Discontinued enalapril (Vasotec) 20 MG tabletIndications :Essential hypertension TAKE 1 TABLET BY MOUTH EVERY MORNING 30 tablet 1 025 2024 Discontinued traMADol (Ultram) 50 MG tabletIndications :Cervicalgia Take 1 tablet (50 mg) by mouth every 12 (twelve) hours if needed for severe pain. Do not start before December 17, 2024. 60 tablet 025 2024 Discontinued Glutose 15 40 % gel oral gel TAKE 15 GRAMS BY MOUTH ONCE DAILY NEEDED FOR LOW BLOOD SUGAR 112.5 g 2 01/06/20 25 4:21 PM EST 025 2024 Discontinued Active Problems Problem Noted Date Diagnosed Date Vaginal bleeding 11/03/2024 Assessment & Plan (11/03/2024 12:59 PM EDT): Post menopausal bleeding in patient s/p hysterectomy X 1 episode On exam, source of bleeding most likely ectactic enlarged blood vessel of inner L labia Continue to monitor Apply Vaseline to area twice daily to seal bleeding vessel Will refer to hotel maintenance worker for followup if needed Return precautions [...] hand 02/13/2024 Small bowel motility disorder 02/13/2024 Tear of medial meniscus of left [...] She is currently connected with services through [facility]. Pt needing additional support due [...] her family. She will continue services with [facility] for OP therapy and psychiatry services. clinician will be available if needed during next medical appointment. PLAN: (check all that apply) Continue with current services (defined as services in the past 12 months) . Pt is engaged with OP therapy and psychiatry services with [facility] @ [facility] Excessive attrition of teeth, generalized 2023 Right [...] her family. She will continue services with [facility] for OP therapy and psychiatry services. clinician will be available if needed during next medical appointment. PLAN: (check all that apply) Continue with current services (defined as services in the past 12 months) . Pt is engaged with OP therapy and psychiatry services with [facility] @ [facility] Fibromyalgia 07/31/2022 Asthma-COPD overlap syndrome (CMS/HCC) Right [...] for possible plantar fasciitis -referred today to computer repairer x ongoing discomfort -may need orthopedic [...] for OP individual therapy and psychiatry with [facility] at [facility]. Sees psych provider every two months and therapist bi-weekly. Pt will reach out to clinician as needed. Assessment & Plan (04/10/2023 11:08 AM EST): PLAN: (check all that apply) Behavioral Health Integration Plan Patient Self Plan Patient to reach out to [facility] team as needed Assessment & [...] manner PLAN: 1. Follow up with [facility]: Not recommended for follow-up 2. Patient goal is: reduce anxiousness 3. Behavioral Recommendations a. Patient will comply with medication b. Patient may request to speak with a [facility] during next PCP visit, if needed [...] CDTM Abnormal finding on ultrasound 02/13/2024 11/03/2024 Smoker 02/13/2024 01/11/2025 Overview (02/13/2024): DISCUSSED WITH THE PATIENT, MADE HER AWARE THAT LONG SHE KEEPS ON SMOKING VERY DIFFICULT TO CONTROL HER RESPIRATORY SYMPTOMS. SHE MUST TRY TO QUIT SOON POSSIBLE. Type 2 diabetes mellitus 02/13/2024 COVID-19 10/08/2023 [...] organization. Date Type Department Care Team Description 01/16/2025 Refill [facility] [address] [place] [address] Anthony Ruiz ANP Essential hypertension 01/12/2025 Refill [facility] [address] [place] [address] Anthony Ruiz ANP Cervicalgia 01/11/2025 1:00 PM EST Office Visit [address] [address] Anthony Ruiz ANP Type 2 diabetes mellitus with hyperlipidemia (HCC) (Primary Dx); Hypothyroidism, unspecified type; Elevated antinuclear antibody (REX) level; Transaminitis; Mixed anxiety and depressive disorder; Moderate episode of recurrent major depressive disorder (CMS/HCC) (HCC) 01/11/2025 Travel 01/09/2025 Refill [facility] [address] [place] [address] Anthony Ruiz ANP Type 2 diabetes mellitus with hyperlipidemia ([facility]/HCC) 01/07/2025 9:30 AM EST Clinical Support [address] [address] Azeb Hall RN Long-term current use of opiate analgesic (Primary Dx) 01/07/2025 Travel 01/05/2025 Refill [facility] [address] [place] [address] Anthony Ruiz ANP 12/27/2024 Travel 12/21/2024 Refill [facility] [address] [place] [address] Anthony Ruiz ANP 12/20/2024 Telephone [facility] [address] [place] [address] Anthony Ruiz ANP ER Follow-up 12/20/2024 Refill [facility] [address] [place] [address] Anthony Ruiz ANP Chronic SI joint pain 12/18/2024 Orders Only GENERIC EXTERNAL DATA DEPARTMENT Provider, Generic External Data 12/17/2024 Refill [facility] [address] [place] [address] Anthony Ruiz ANP Chronic SI joint pain 12/16/2024 2:20 PM EDT Office Visit [facility] [address] [place] [address] Samantha Kumar DO Type 2 diabetes mellitus with hyperlipidemia (CMS/HCC) (Primary Dx) 12/16/2024 Telephone [facility] [address] [place] [address] Brittney Nava MD Triage 12/16/2024 Travel 12/15/2024 Orders Only [facility] External Provider, [facility] 12/15/2024 Telephone [facility] [address] [place] [address] Anthony Ruiz ANP Med Refill 12/13/2024 Refill [facility] [address] [place] [address] Anthony Ruiz ANP Neck pain; Cervicalgia 12/12/2024 Refill [facility] [address] [place] [address] Anthony Ruiz ANP Cervicalgia 12/10/2024 Refill [facility] [address] [place] [address] Anthony Ruiz ANP Type 2 diabetes mellitus with hyperlipidemia (HCC) 12/09/2024 Telephone [facility] [address] [place] [address] Anthony Ruiz ANP Results 12/08/2024 Orders Only GENERIC EXTERNAL DATA DEPARTMENT Provider, Generic External Data 12/07/20[facility] [address] [address] Anthony Ruiz ANP 12/03/2024 10:20 AM EDT Office Visit [facility] [address] [address] Jess Coyne MD Acute bronchitis, unspecified organism (Primary Dx); Severe persistent asthma without complication (HCC) 12/02/2024 Refill [facility] [address] [place] [address] Anthony Ruiz ANP Type 2 diabetes mellitus with diabetic neuropathy, with long-term current use of insulin (HCC) 12/01/2024 Refill [facility] [address] [place] [address] Debra Faye MD Chronic bilateral low back pain, unspecified whether sciatica present 11/24/2024 Refill [facility] [address] [place] [address] Anthony Ruiz ANP Essential hypertension; Severe persistent asthma without complication (HCC) 11/23/2024 Orders Only [facility] [address] [place] [address] Anthony Ruiz ANP 11/19/2024 Refill [facility] [address] [place] [address] Chava Presley MD 11/16/2024 Refill [facility] [address] [place] [address] Anthony Ruiz ANP Type 2 diabetes mellitus with diabetic neuropathy, with long-term current use of insulin (CMS/HCC) 11/15/2024 Travel 11/14/2024 Refill [facility] [address] [place] [address] Anthony Ruiz ANP Cervicalgia 11/12/2024 Refill [facility] [address] [place] [address] Anthony Ruiz ANP Neck pain 11/11/2024 Refill [facility] [address] [place] [address] Yogesh Gomez DMD 11/10/2024 3:30 PM EDT Immunization [address] [address] Yohana Quinn RN Encounter for immunization 11/10/2024 Travel 11/09/2024 9:00 AM EDT Office Visit [facility] [address] [place] [address] Chava Presley MD Type 2 diabetes mellitus with hyperlipidemia (CMS/[facility]) (Primary Dx) 11/09/2024 Telephone [facility] [address] [place] [address] Azeb Hall RN 11/09/2024 Travel 11/08/2024 Telephone [facility] [address] [place] [address] Anthony Ruiz ANP Nurse Triage 11/05/2024 2:30 PM EDT Office Visit [facility] [address] [place] [address] Hallie Tapia MD Boils (Primary Dx) 11/05/2024 Travel 11/03/2024 Telephone [facility] [address] [place] [address] Anthony Ruiz ANP Results 11/01/2024 2:45 PM EDT Office Visit [address] [address] Reta Sue MD Vaginal bleeding (Primary Dx); Dietary counseling; Exercise counseling; Class 2 obesity without serious comorbidity with body mass index (BMI) of 35.0 to 35.9 in adult, unspecified obesity type; Vulvar itching; Constipation, unspecified constipation type; Hemorrhoids, unspecified hemorrhoid type 11/01/2024 Travel 10/29/2024 Refill [facility] [address] [place] [address] Anthony Ruiz ANP Neck pain 10/26/2024 Results Follow-Up [facility] [address] [place] [address] Anthony Ruiz ANP Thyroid Peroxidase Antibodies, Cardiolipin Antibodies (IgA,IgG,IgM) 10/25/2024 Refill [facility] [address] [place] [address] Anthony Ruiz ANP 10/23/2024 Refill [facility] [address] [place] [address] Anthony Ruiz ANP 10/22/2024 Orders Only GENERIC EXTERNAL DATA DEPARTMENT Provider, Generic External Data 10/20/2024 Results Follow-Up [address] [address] Anthony Ruiz ANP Prothrombin Time-INR, C-reactive Protein, Amylase, Additional followed-up results: 7 from Last 3 Months Immunizations Immunization Administration [...] Answer Date Recorded Patient Health Questionnaire-9 Score 14 01/11/2025 Patient Health Questionnaire-9 Score 14 01/11/2025 Last PHQ-9: Questionnaire Data Not on file 1 03/13/2024 Housing Stability Answer Date Recorded What is [...] Date Recorded Patient Health Questionnaire-2 Score 4 01/11/2025 Internet Access Answer Date Recorded Internet Access [...] Sign Reading Time Taken Comments Blood Pressure 120/70 01/11/2025 12:56 PM EST Pulse 84 01/11/2025 12:56 PM EST Temperature 36.5 C (97.7 F) 01/11/2025 12:56 PM EST Respiratory Rate 14 01/11/2025 12:56 PM EST Oxygen Saturation 98% 01/11/2025 12:56 PM EST Inhaled Oxygen Concentration - - Weight 95.7 kg (211 lb) 01/11/2025 12:56 PM EST Height 160 cm (5' 3 ) 01/11/2025 12:56 PM EST Body Mass Index 37.38 01/11/2025 12:56 PM EST Plan of Treatment Upcoming Encounters Date Type Department Care Team (Late st Contact Info) Description 01/19/2025 2:20 PM EST Office Visit [facility] [address] [place] [address] 02/03/2025 11:00 AM EST Medication Management [facility] [address] [place] [address] Yuri Pierre, PharmD [address] [place] [address] 04/04/2025 10:00 AM EST Telemedicine [facility] [address] [place] [address] Azeb Hall, RN [address] [place] [address] Health Maintenance Due Date Last Done Comments CT Colonography 1960 FIT DNA/Cologuard 1960 FIT 1960 FOBT 1960 Sigmoidoscopy 1960 Alcohol/Substance Use Screening 1972 Hepatitis A Vaccines (1 of 2 - Risk 2-dose series) 08/06/1979 Pap Smear 1981 COVID-19 Vaccine ( season) 2024 08/04/2024, 11/19/2022, [...] 06/18/2025 06/18/2024, 12/18, 09/05/2022, Additional history exists Depression Monitoring 07/11/2025 01/11/2025, 025 Diabetes: Hemoglobin A1C 07/11/2025 025, 10/14/2024, 10/12/2024, Additional history exists Disability Screening 07/15/2025 07/15/2024 SDOH Screening 07/15/2025 07/15/2024 Dental X-Ray: Bitewings 2025 08/05/19 25, 09/12/2023, 08/12/2022 Diabetes: Foot Exam 01/11/2026 01/11/2025, 01/11/2025, 01/11/2025, Additional history exists Tobacco Screening 01/11/2026 01/11/2025 Dental X-Ray: Full Mouth 09/12/2026 09/12/2023, 0808/2018 Eye Exam 09/24/2026 09/24/2024, 08/0 09/2024, 09/24/2024, [...] Pressure 120/70(2024 12:56 PM EST) No Aida Corona PharmD Record Your Blood Sugar As Directed General No Piers-Burgos , Aida, PharmD Hemoglobin A1c < 7 Result Component 6.6( 12:59 PM EST) No Aida Corona PharmD Help patients manage their type 2 [...] Care Plan Weekly blood pressure task No Luiza Meade MA Weekly blood pressure task Care Plan Weekly blood pressure task No Luiza Meade MA Patient has chronic kidney disease Care Plan Patient has chronic kidney disease No Luiza Meade MA Patient has chronic kidney disease Care Plan Patient has chronic kidney disease No Luiza Meade MA Weekly blood pressure task Care Plan Weekly blood pressure task No Linda Mark Weekly blood pressure task Care Plan Weekly blood pressure task No Linda Mark Patient has chronic kidney disease Care Plan Patient has chronic kidney disease No Linda Mark Patient has chronic kidney disease Care Plan Patient has chronic kidney disease No Linda Mark Weekly blood pressure task Care Plan Weekly blood pressure task No Azeb Hall RN Weekly blood pressure task Care Plan Weekly blood pressure task No Azeb Hall RN Patient has chronic kidney disease Care Plan Patient has chronic kidney disease No Azeb Hall RN Patient has chronic kidney disease Care Plan Patient has chronic kidney disease No Azeb Hall RN Procedures Procedure Name Priority Date/Time Associated Diagnosis Comments POCT GLYCATED HEMOGLOBIN, TOTAL Routine 01/11/2025 12:59 PM EST Type 2 diabetes mellitus with hyperlipidemia (HCC) POCT GLUCOSE Routine 01/11/2025 12:58 PM EST Type 2 diabetes mellitus with hyperlipidemia (HCC) POCT FRANKLIN-14 URINE DRUG SCREEN Routine 01/07/2025 [...] WITH REFLEX Routine 10/22/2024 10:49 AM EDT [id number] I ANTIBODIES (IGG, IGA, IGM) Routine 10/22/2024 10:49 AM EDT ACTIN (SMOOTH MUSCLE) ANTIBODY (IGG) Routine 10/22/2024 10:49 AM EDT CARDIOLIPIN AB (IGA,IGG,IGM) Routine 10/22/2024 10:49 AM EDT THYROID PEROXIDASE ANTIBODIES Routine 10/22/2024 10:49 AM EDT HEPATITIS C ANTIBODY (MA DPH) Routine [...] to Health Maintenance Results * (ABNORMAL) POCT Hgb A1c (01/11/2025 12:59 PM EST) Hemoglobin A1C 6.6(A) 4.0 - 5.7 % QC Media Lot # [id number] Lot# Expiration Date Blood 01/11/2025 12:5 9 PM EST [facility] POINT OF CARE TEST ENTER/EDIT OR DERABLES Final Result * POCT Glucose (01/11/2025 12:58 PM EST) Only the most recent of3 resultswithin the time period is included. Glucose Blood, POC 115 60 - 200 mg/dL QC Media Lot # [id number] Lot# Expiration Date Blood Capillary blood specimen / Unknown 01/11/2025 12:58 PM EST [facility] POINT OF CARE TEST ENTER/EDIT OR DERABLES Final Result * POCT FRANKLIN-14 Urine Drug Screen (01/07/2025 [...] - 01/07/2025 9:33 AM EST .UTOX cup Lot#[id number] Exp. 01/17/26 Internal Pass Control [facility] POINT OF CARE TEST ENTER/EDIT OR DERABLES Final Result * CT Abdomen Pelvis w/ Contrast (12/18/2024 9:02 AM EDT) Anatomical Region Laterality Modality Body, Pelvis, Abdomen Computed T omography 12/18/2024 9:02 AM EDT Narrative 12/18/2024 9:03 AM EDT [address] [address] [address] Scan Report Signed Patient: Nuvia Fay MR #: [id number] : 1960 Acct:[id number] Age/Sex: 64 / F ADM Date: 12/18/24 Loc: HO.ED Attending Dr: Ordering Physician: Kourtney Jones MD Date of Service: 12/18/24 Procedure(s): CT abdomen pelvis w IV con Accession Number(s): [id number] cc: Kourtney Jones MD; ANTHONY RUIZ NP Report Number: [id number]: Total DLP = 609.00 mGy-cm Reason for [...] in OV> 12/18/24901 DD/ 1 TD/TT: 12/18/24901 Traffic Control Signaler: Procedure Note Donotuseinterpreter, Image - 12/18/[address] [address] [address] Scan Report Signed Patient: Nuvia Fay EMR #: [id number] : 1Acct:[id number] Age/Sex: 64 / FADM Date: 12/18/24 Loc: HO.ED Attending Dr: Ordering Physician: Kourtney Jones MD Date of Service: 12/18/24 Procedure(s): CT abdomen pelvis w IV con Accession Number(s): [id number] cc: Kourtney Jones MD; ANTHONY RUIZ NP Report Number: [id number]: Total DLP = 609.00 mGy-cm Reason for [...] in OV> 12/18/24901 DD/ 1 TD/TT: 12/18/24901 Traffic Control Signaler: [facility] External Provider IMG CT PROCEDURES Edited Result - Final * (ABNORMAL) Urinalysis, Complete, with Reflex to Culture (12/18/2024 8:21 AM EDT) Color Urine Yellow [facility] Appearance Urine Clear [facility] PH 7.0 5.0 - 9.0 [facility] Glucose Urine UA Negative Negative mg/dL [facility] Urine Blood Negative Negative [facility] Specific [place] - Urine 1.025 1.005 - 1.025 [facility] Urine Protein Negative Neg-Trace mg/dL [facility] Urine Ketones Negative Negative mg/dL [facility] Nitrite Urine Negative Negative [facility] Leukocyte Esterase Urine Small (1+)(A) Negative [facility] RBC Urine 0-2 0 - 2 /HPF [facility] Urine WBC 0-5 0 - 5 /HPF [facility] Urine Squamous Epithelial Cell 0-2 0 - 2 /HPF [facility] Urine Bacteria None Seen None Seen [facility] Hyaline Casts, Urine 0-2 0 - 2 /LPF [facility] 12/18/2024 8:21 AM EDT 12/18/2024 8:26 AM EDT Narrative [facility] - 12/18/2024 8:45 AM EDT [id number], Clean Catch us Generic External Data Provider LAB URINE ORDERAB LES Final Result Performing Organization Address City/State/[facility] Co de Phone Number [facility] [address] [place] [phone] * XR Chest 1 View (12/18/2024 7:39 AM EDT) Anatomical Region Laterality Modality Chest Radiographic Griselda ging 12/18/2024 7:39 AM EDT Narrative 12/18/2024 7:42 AM EDT [address] [address] XRay Report Signed Patient: Nuvia Fay MR #: [id number] : 1960 Acct:[id number] Age/Sex: 64 / F ADM Date: 12/18/24 Loc: HO.ED Attending Dr: Ordering Physician: Kourtney Jones MD Date of Service: 12/18/24 Procedure(s): XR chest 1V Accession Number(s): [id number] cc: Kourtney Jones MD; ANTHONY RUIZ NP [...] in OV> 12/18/24740 DD/ 8 TD/TT: 12/18/24738 Traffic Control Signaler: Procedure Note Donotuseinterpreter, Image - 12/18/2024 [place] [address] XRay Report Signed Patient: Nuvia Fay EMR #: [id number] : 1960cct:[id number] Age/Sex: 64 / FADM Date: 12/18/24 Loc: .ED Attending Dr: Ordering Physician: Kourtney Jones MD Date of Service: 12/18/24 Procedure(s): XR chest 1V Accession Number(s): [id number] cc: Kourtney Jones MD; ANTHONY RUIZ NP [...] Whitney Price MD in OV> 12/18/24740 DD/ TD/TT: 12/18/24738 Traffic Control Signaler: [facility] External Provider IMG XR PROCEDURES Edited Result - Final * Culture, Urine, Routine (12/18/2024 12:00 AM EDT) Urine Urine specimen obtained by clean catch procedure / Unknown 12/18/2024 12/18/2024 Comment:UACC Narrative [facility] - 12/19/2024 12:44 PM EST Urine Culture Report Result Urine Culture 10,000 to 50,000 cfu/ml Urine Culture Mixed bacterial yady characteristic of Urine Culture urogenital contamination. Specimen Source: Urine clean catch Generic External Data Provider LAB MICROBIOLOGY - GENERAL ORDERABLES Final Result Performing Organization Address City/State/[facility] Co de Phone Number [facility] [address] [place] [phone] * US Abdomen Complete (12/15/2024 9:44 PM EDT) Anatomical Region Laterality Modality Abdomen Ultrasound 12/15/2024 9:44 PM EDT Narrative 12/15/2024 9:46 PM EDT [address] [address] Ultrasound Report Signed Patient: Nvuia Fay MR #: [id number] : 1960 Acct:[id number] Age/Sex: 64 / F ADM Date: 12/15/24 Loc: HO.US Attending Dr: Umm PERALTA Ordering Physician: Umm Ellsworth Date of Service: 12/15/24 Procedure(s): US abdomen complete Accession Number(s): [id number] cc: Umm Ellsworth; ANTHONY RUIZ NP Reason [...] in OV> 12/15/242144 DD/ 43 TD/TT: 12/15/242143 Traffic Control Signaler: Procedure Note Donotuseinterpreter, Image - 12/15/2024 [place] [address] Ultrasound Report Signed Patient: Nuvia Fay EMR #: [id number] : 1960cct:[id number] Age/Sex: 64 / FADM Date: 12/15/24 Loc: HO.US Attending Dr: Umm PERALTA Ordering Physician: Umm Ellsworth Date of Service: 12/15/24 Procedure(s): US abdomen complete Accession Number(s): [id number] cc: Umm Ellsworth; ANTHONY RUIZ NP Reason [...] in OV> 12/15/242144 DD/ 43 TD/TT: 12/15/242143 Traffic Control Signaler: us [facility] External Provider IMG US PROCEDURES Edited Result - Final * XR Chest 2 Views (12/08/2024 2:21 PM EDT) Anatomical Region Laterality Modality Chest Radiographic Griselda ging 12/08/2024 2:21 PM EDT Narrative 12/08/2024 2:34 PM EDT [place] [address] XRay Report Signed Patient: Nuvia Fay MR #: [id number] : 1960 Acct:[id number] Age/Sex: 64 / F ADM Date: 12/08/24 Loc: HO.ED Attending Dr: Ordering Physician: Rosangela Ventura Date of Service: 12/08/24 Procedure(s): XR chest 2V Accession Number(s): [id number] cc: Rosangela Ventura; ANTHONY RUIZ NP Reason [...] OV> 12/08/24 143 DD/ 20 TD/TT: 12/08/241427 Traffic Control Signaler: Procedure Note Donotmarshainterpreter, Image - 12/08/[address] [address] XRay Report Signed Patient: Nuvia Fay EMR #: [id number] : 1960cct:[id number] Age/Sex: 64 / FADM Date: 12/08/24 Loc: .ED Attending Dr: Ordering Physician: Rosangela Ventura Date of Service: 12/08/24 Procedure(s): XR chest 2V Accession Number(s): [id number] cc: Rosangela Ventura; ANTHONY RUIZ NP Reason [...] OV> 12/08/24 1431 DD/ 1421 TD/TT: 12/08/241427 Traffic Control Signaler: [facility] External Provider IMG XR PROCEDURES Final Result * Influenza A B2 ID NOW (Bailey) (12/08/2024 2:09 PM EDT) IDNOW SERIAL# [id number] [facility] Influenza A Negative Negative [facility] Influenza B2 Negative Negative [facility] Influenza A B2 Note See Note [facility] Comment:The Bailey ID NOW In [...] LAB MICROBIOLOGY - GENERAL ORDERABLES Final Result [facility] [address] [place] [phone] * COVID-19 ID NOW (BAILEY) (12/08/2024 2:09 PM EDT) IDNOW SERIAL# [id number] [facility] COVID-19 TEST Negative Negative [facility] COVID-19 NOTE See Note [facility] Comment: Results are for the identification of SARS-CoV2 RNA. TheSARS-CoV2 RNA is generally detectable in respiratory samplesduring the acute phase of infection. Positive results areindicative of the presence of SARS-CoV-2 RNA; clinicalcorrelation with patient history and other diagnosticinformation is necessary to determine patient infectionstatus. Positive results do not rule out bacterial infectionor co- infection with other viruses.Testing facilities within the [facility] and itsterritories are required to report [...] use by authorized laboratories.Testing performed on the [facility] ID NOW utilizing NAAT. 12/08/2024 2:09 PM EDT 12/08/2024 2:13 PM EDT Generic External Data Provider LAB MOLECULAR LILIAM GNOSTICS ORDERABLES Final Result Performing Organization Address [facility] de Phone Number [facility] [address] [place] [address] [phone] * High Sensitivity Troponin I (12/08/2024 2:09 PM EDT) [facility] TROPONIN I HIGH SENSITIVITY <2.7 <3.5 - 17.0 ng/L [facility] Comment:The Bailey high sens itivity Troponin-I results should beused in conjunction with other diagnostic information suchas ECG, clinical observations and information, and patientsymptoms to aid in the diagnosis of NM. 12/08/2024 2:09 PM EDT 12/08/2024 2:13 PM EDT Generic External Data Provider LAB BLOOD ORDERAB LES Final Result Performing Organization Address [facility] de Phone Number [facility] [address] [place] [phone] * (ABNORMAL) CBC auto differential (12/08/2024 2:09 PM EDT) Pathologist [facility] White Blood Count 7.6 4.8 - 10.8 X10*3/uL [facility] Red Blood Count 4.67 4.20 - 5.50 X10*6/uL [facility] Hemoglobin 14.7 12.0 - 16.0 g/dl [facility] Hematocrit 44.2 37.0 - 47.0 % [facility] Mean Corpuscular Volume 94.6 80.0 - 98.0 fL [facility] Mean Corpuscular Hemoglobin 31.5 27.0 - 33.0 pg [facility] Mean Corpuscular HGB Conc 33.3 31.0 - 35.0 g/dl [facility] Red Cell Distribution Width 12.9 11.0 - 16.0 % [facility] Platelet Count 268 160 - 400 X10*3/uL [facility] Mean Platelet Volume 9.2(L) 9.4 - 12.3 fL [facility] Neutrophils Percent Auto 82.1(H) 45 - 73 % [facility] Imm Gran Pct Auto 0.3 0.0 - 0.4 % [facility] Lymphocytes Percent Auto 16.1(L) 20 - 40 % [facility] Monocytes Percent Auto 0.8(L) 2 - 11 % [facility] Eosinophils Percent Auto 0.3 0 - 4 % [facility] Basophils Percent Auto 0.4 0 - 2 % [facility] NRBC Pct Auto 0.0 0.0 - 0.2 /100WBC [facility] Neutrophils Absolute Auto 6.2 2.0 - 8.3 x10*3/uL [facility] Imm Gran Abs Auto 0.02 0.00 - 0.03 X10*3/uL [facility] Lymphocytes Absolute Auto 1.2 1.2 - 4.9 X10*3/uL [facility] Monocytes Absolute Auto 0.1 0.1 - 1.2 X10*3/uL [facility] Eosinophils Absolute Auto 0.0 0.0 - 0.4 X10*3/uL [facility] Basophils Absolute Auto 0.0 0.0 - 0.2 X10*3/uL [facility] NRBC Abs Auto 0.000 0.0 - 0.012 X10*3/uL [facility] 12/08/2024 2:09 PM EDT 12/08/2024 2:13 PM EDT us Generic External Data Provider LAB BLOOD ORDERAB LES Final Result [facility] [address] [place] [address] [phone] * Magnesium (12/08/2024 2:09 PM EDT) Magnesium 2.1 1.6 - 2.6 mg/dL [facility] 12/08/2024 2:09 PM EDT 12/08/2024 2:13 PM EDT us Generic External Data Provider LAB BLOOD ORDERAB LES Final Result Performing Organization Address [facility]/ZIP Co de Phone Number [facility] [address] [place] [address] [phone] * (ABNORMAL) Comprehensive Metabolic Panel (12/08/2024 2:09 PM EDT) Pathologist [facility] Sodium 141 135 - 145 mmol/L [facility] Potassium 3.7 3.3 - 5.1 mmol/L [facility] Chloride 109(H) 96 - 108 mmol/L [facility] Carbon Dioxide 25 22 - 29 mmol/L [facility] Anion Gap 11(L) 12 - 20 [facility] Urea Nitrogen (BUN) 13 9 - 16 mg/dL [facility] Creatinine, Serum 0.90 0.5 - 1.4 mg/dL [facility] Creatinine Clr Calc Pharmacy 64.2 [facility] Comment:Provided height and weight: 152.4 cm,92.896 kg.eGFR (calculated from the MDRD study equation) and eCrCl(calculated from the Cockcroft-Gault equation) are based ondifferent parameters and may not yield comparable results.If eCrCl result is absurd, please check patient'sheight/weight. Estimated Glomerular Filt Rate >60 [facility] Comment:Chronic Kidney Disea se: Estimated GFR < 60 mL/min/1.17o8Vomklr Kidney Disease: Estimated GFR < 15 mL/min/1.73m2 Glucose 214(H) 60 - 115 mg/dL [facility] Calcium 9.8 8.4 - 10.2 mg/dL [facility] Bilirubin, Total 0.3 0.0 - 1.0 mg/dL [facility] Aspartate Amino Transferase 28 5 - 31 U/L [facility] Alanine Aminotransferase 16 0 - 31 U/L [facility] Total Protein 7.4 6.5 - 8.0 g/dL [facility] Albumin Level 4.2 3.5 - 5.0 g/dL [facility] Alkaline Phosphatase 101 39 - 117 U/L [facility] 12/08/2024 2:09 PM EDT 12/08/2024 2:13 PM EDT us Generic External Data Provider LAB BLOOD ORDERAB LES Final Result Performing Organization Address [facility]/ZIP Co de Phone Number [facility] [address] [place] [phone] * Bacterial Vaginosis Panel (11/01/2024 12:00 AM EDT) TRICHOMONAS VAGINALIS DETECTION BY PCR NOT DETECTED Not Detect [facility] BACTERIAL VAGINOSIS DETECTION BY PCR NEGATIVE Negative [facility] Comment:The BV organism targ ets [...] DETECTION BY PCR NOT DETECTED Not Detect [facility] Eufemia glab krusei PCR NOT DETECTED Not Detect [facility] Swab Vaginal structure / Unknown 11/01/2024 11/01/2024 us Reta Sue MD LAB MICROBIOLOGY - GENERAL ORD ERABLES Final Result Performing Organization Address City/[facility]/ZIP Co de Phone Number [facility] [address] [place] [address] [phone] * Kbdt-4-Oxanoidgzpse I Antibodies (IgG, IgA, IgM) (10/22/2024 10:49 AM EDT) B2 Glycoprotein I IgG Antibody <2.0 <20.0 U/mL [facility] Comment:Value Interpretation ----- < 20.0 Antibody not detected> or = 20.0 Antibody detected B2 Glycoprotein I IgM Antibody <2.0 <20.0 U/mL [facility] Comment:Value Interpretation ----- < 20.0 Antibody not detected> or = 20.0 Antibody detected B2 Glycoprotein I IgA Antibody <2.0 <20.0 U/mL [facility] Comment: Value Interpretation----- < 20.0 Antibody not detected> or = 20.0 Antibody detectedThe antiphospholipid antibody syndrome (APS) is aclinical- pathologic correlation that includes aclinical event (e.g. arterial or venous thrombosis, morbidity) and persistent positiveantiphospholipid antibodies (IgM, IgG Cardiolipin kcu2FEN antibodies greater than the 99th percentile;or a [...] therapy or aging.For additional information, please refer tohttp://education.Opargo/faq/UFI065(This link is being provided for informational/educational purposes only.)THIS TEST WAS PERFORMED AT:[employer] [id number] [place] [address]TURZYQFDEAN CASAS MD,PHD 10/22/2024 10:4 9 AM EDT 10/22/2024 10:49 AM EDT us Generic External Data Provider LAB BLOOD ORDERAB LES Final Result Performing Organization Address [facility] Co de Phone Number [facility] [address] [place] [phone] * (ABNORMAL) Thyroid Peroxidase Antibodies (10/22/2024 10:49 AM EDT) Thyroid Peroxidase Antibodies >900(A) <9 IU/mL [facility] Comment:THIS TEST WAS PERFOR MED AT:[employer] [address] [address]OJLOEHERNAN WARREN MD 10/22/2024 10:4 9 AM EDT 10/22/2024 10:49 AM EDT Generic External Data Provider LAB BLOOD ORDERAB LES Final Result Performing Organization Address [facility] Co de Phone Number [facility] [address] [place] [phone] * (ABNORMAL) Actin (Smooth Muscle) Antibody (IgG) (10/22/2024 10:49 AM EDT) Smooth Muscle Antibody 47(A) <20 U [facility] Comment:Reference Range: <20 U: Negative>or=20 [...] with AIH type 1.THIS TEST WAS PERFORMED AT:[employer]/[id number] [place] [address]GHYNWSWDEAN CASAS MD,PHD 10/22/2024 10:4 9 AM EDT 10/22/2024 10:49 AM EDT Generic External Data Provider LAB BLOOD ORDERAB LES Final Result Performing Organization Address [facility] Co de Phone Number [facility] [address] [place] [address] [phone] * Lupus Anticoagulant Evaluation with Reflex (10/22/2024 10:49 AM EDT) Lupus Interpretation see note [facility] Comment:A Lupus Anticoagulan t is not detected.Reference Range: Not DetectedFor additional information, please refer tohttp://education.Opargo/faq/LTQ61w5(This link is being provided for informational/educational purposes only.)This interpretation is based on the following testresults. PTT (LAC) Screen 33 <=40 sec [facility] DRVVT Screen 35 <=45 sec [facility] Comment:THIS TEST WAS PERFOR MED AT:[employer]/[facility] [id number] [place] [address]CJBWHCCDEAN CASAS MD,PHD dRVVT Confirmation [facility] dRVVT 1:1 Mix [facility] DRVVT 1:1 Mix Interpretation [facility] Hexagonal Phase Neutralization [facility] Thrombin Clotting Time [facility] 10/22/2024 10:4 9 AM EDT 10/22/2024 10:49 AM EDT Generic External Data Provider LAB BLOOD ORDERAB LES Final Result Performing Organization Address City/[facility]/ZIP Co de Phone Number [facility] [address] [place] [address] [phone] * Cardiolipin Antibodies (IgA,IgG,IgM) (10/22/2024 10:49 AM EDT) Cardiolipin Antibody (IgG) <2.0 GPL-U/mL [facility] Comment:Value Interpretation ----- < 20.0 Antibody not detected> or = 20.0 Antibody detected Cardiolipin Antibody (IgM) <2.0 MPL-U/mL [facility] Comment: Value Interpretation----- < 20.0 Antibody not detected> or = 20.0 Antibody detectedThe antiphospholipid antibody syndrome (APS) is aclinical- pathologic correlation that includes aclinical event (e.g. arterial or venous thrombosis, morbidity) and persistent positiveantiphospholipid antibodies (IgM, IgG Cardiolipin qic8UYA antibodies greater than the 99th percentile; ora [...] therapy or aging.For additional information, please refer tohttp://education.Opargo/faq/PHE052(This link is being provided for informational/educational purposes only.)THIS TEST WAS PERFORMED AT:[employer] [place] [address]SUNODHERNAN WARREN MD 10/22/2024 10:4 9 AM EDT 10/22/2024 10:49 AM EDT Generic External Data Provider LAB BLOOD ORDERAB LES Final Result [facility] [address] [place] [phone] * Hepatitis C Antibody ([facility]) (08/06/2024) Pathologist [facility] Hepatitis C Ab Nonreactive Blood 08/06/2024 Historical Provider LAB BLOOD ORDERABLES Kelsey l Result * HIV Ab/Ag ([facility]) (08/06/2024) HIV Ag/Ab Nonreactive Blood 08/06/2024 [facility] Provider LAB BLOOD ORDERABLES Kelsey l Result * (ABNORMAL) Lipid Panel, Standard (06/18/2024 10:18 AM EDT) Triglycerides 122 <150 mg/dL [facility] Comment:Desirable Triglyceri de: less than 150 mg/dLBorderline High Triglyceride 150-199 mg/dLHigh Triglyceride: 200-499 mg/dLVery High Triglyceride: greater than or equal to 5OO mg/dL Cholesterol 216(H) <200 mg/dL [facility] Comment:Desirable Cholestero l: less than 200 mg/dLBorderline High Cholesterol: 200-239 mg/dLHigh Cholesterol: greater than 239 mg/dL LDL Cholesterol Calculated 128(H) <100 mg/dL [facility] Comment:Desirable LDL: less than 100 mg/dLNear Optimal/Above Optimal LDL: 110- 129 mg/dLBorderline High LDL: 130-159 mg/dLHigh LDL: 160-189 mg/dLVery High LDL: greater than or equal to 190 mg/dL HDL Cholesterol 64 >40 mg/dL [facility] Comment:Desirable HDL: great er than 40 mg/dL Note: This HDL assay may give artificially low results in patients with liver disease. Blood Venous blood specimen / Unknown 06/18/2024 10:18 AM EDT 06/18/2024 11:08 AM EDT [facility] Alee PAGE LAB BLOOD ORDERABLES Final Resul t [facility] [address] [place] [address] [phone] * BI Mammogram Screening Tomosynthesis Bilateral (04/12/2024 1:48 PM EST) Anatomical Region Laterality Modality Breast Bilateral Mammography 04/12/2024 1:48 PM EST Narrative 04/17/2024 12:38 PM EST [address] [place] [address] Mammography Report Signed Patient: Nuvia Fay MR #: [id number] : 1960 Acct:[id number] Age/Sex: 63 / F ADM Date: 04/12/24 Loc: HO.MAMMO Attending Dr: Monica Lozano CNM Ordering Physician: Monica Lozano CNM Results: 2Beni gn Findings Date of Service: 04/12/24 Follow Up: 1 Year From Orig inal Mammogram Procedure(s): MM tomosynthesis screening BI Accession Number(s): [id number] cc: Monica Lozano CNM; ANTHONY RUIZ NP [...] 04/17/24 1235 DD/ 1348 TD/TT: 04/12/24 1405 Traffic Control Signaler: Procedure Note Donotuseinterpreter, Image - 04/17/[address] [place] [address] Mammography Report Signed Patient: Nuvia Fay EMR #: [id number] : 1960cct:[id number] Age/Sex: 63 / FADM Date: 04/12/24 Loc: HO.MAMMO Attending Dr: Monica Lozano CNM Ordering Physician: Monica LozanoMResults: 2Beni gn Findings Date of Service: 04/12/24Follow Up: 1 Year From Orig inal Mammogram Procedure(s): MM tomosynthesis screening BI Accession Number(s): [id number] cc: Monica Lozano CNM; ANTHONY RUIZ NP [...] 04/17/24 1235 DD/ 1348 TD/TT: 04/12/24 1405 Traffic Control Signaler: [facility] External Provider IMG BI PROCEDURES Edited Result - Final * Albumin, Random Urine W/Creatinine (01/02/2024 8:44 AM EST) Creatinine, Urine 47.20 mg/dL [facility] Microalbumin Urine 7.0 mg/L [facility] Microalbum Creatinine Ratio Ur 14.8 <30 ug/mg cr [facility] Comment:Albumin/Creatinine R atio Reference Ranges: Normal: < 30 ug/mg creatinine Microalbuminuria: 30 - 300 ug/mg creatinineClinical Albuminuria: > 300 ug/mg creatinine Urine (Urine, Random) 01/02/2024 8:44 AM EST 01/02/2024 11:09 AM EST [facility] Ruiz [facility] LAB URINE ORDERABLES Final Resul t [facility] [address] [place] [address] [phone] * (ABNORMAL) Hm Colonoscopy (12/27/2021) Colonoscopy Abnormal(A ) Normal Historical Provider HEALTH MAINTENANCE Final Result * HPV E6/E7 RFLX ALFRED 16 18/45 (05/09/2020 11:19 AM EDT) HPV mRNA E6/E7 rflx Not Detected Not Detected [facility] Comment: Methodology: Judicial Reporter-Mediated Amplification This assay detects E6/E7 viral messenger RNA (mRNA) from 14 high-risk HPV types (16,18,31,33,35,39,45,51,52,56,58,59,66,68). The analytical performance characteristics of this assay have been determined by [employer]. The modifications have not been cleared or approved by the FDA. This assay has been validated pursuant to the CLIA regulations and is used for clinical purposes. For additional information, please refer to http://education.Opargo/faq/VBA906v0 (This link if provided for information/ educational purposes only.) THIS TEST WAS PERFORMED AT: [employer] [address] [place] [address] [address],[place] [address] HERNAN WARREN MD 05/09/2020 11:1 9 AM EDT Yohana Lu HISTORICAL/NON ORDERABLE LABS Fi nal Result [facility] [address] from Last 3 Months or Most Recently Relevant to Health Maintenance Additional Health Concerns Active Problems Noted Date Diagnosed Date Help patients manage their type 2 diabetes 01/07 Weekly blood pressure task 01/07/2025 Help patients manage their type 2 diabetes 01/07 Patient has chronic kidney disease 01/07/2025 Weekly blood pressure task 01/07/2025 Patient has chronic kidney disease 01/07/2025 Weekly blood pressure task 01/10/2025 Weekly blood pressure task 01/10/2025 Patient has chronic kidney disease 01/10/2025 Patient has chronic kidney disease 01/10/2025 Weekly blood pressure task 01/11/2025 Weekly blood pressure task 01/11/2025 Patient has chronic kidney disease 01/11/2025 Patient has chronic kidney disease 01/11/2025 Weekly blood pressure task 01/12/2025 Weekly blood pressure task 01/12/2025 Patient has chronic kidney disease 01/12/2025 Patient has chronic kidney disease 01/12/2025 Insurance [facility] < 65 [place] [place] [id number] [facility] [place] Care Teams Shingle Grader Relationship Specialty Start Date End Date Anthony uRiz ANP [address] [place] [address] PCP - General Family Medicine 09/23/19 Yuri Pierre, MikeD [address] [place] [address] Pharmacist Internal Medicine 05/05/24 Ron Preciado MD [address] [place], [place] Pulmonary Disease 05/17/24 Felipe Alanis MD [address] Floor [place], [place] Cardiology 01/11/25 Rosemary Moses NP [address] [place], [place] Urology 01/11/25 EllsworthMay [address] [place] [address] Gastroenterology 01/11/25
--- OUTSIDE RECORDS SUMMARY | 2025-01-19 14:02 | XMS_ITS | Encounter Summary ---
Author Organization [employer] Address [address] [place] [address] Care Team Providers Care Matrix Bath Operator Name Role Phone Sariah Vickers Primary Care Provider [phone] Yuri Pierre PharmD Unavailable Basilio Hall MD Unavailable Ron Preciado MD Unavailable [phone] Felipe Alanis MD Unavailable Rosemary Moses NP Unavailable May Unavailable Reason for Visit * Reason Comments Med Refill Encounter Details Date Type Department Care Team (Late st Contact Info) Description 01/06/2024 Refill [facility] CH[facility] MED & PEDS [address] [place] [address] Sariah Vickers ANP [address] [place] [address] Cervicalgia Social History Tobacco Use Types Packs/Day [...] 2:20 PM EST Office Visit [facility] WALK-IN CENTER [address] [place] [address] 02/03/2025 11:00 AM EST Medication Management [facility] MEDICINE [address] [place] [address] Yuri Pierre, PharmD [address] [place] [address] 04/04/2025 10:00 AM EST Telemedicine [facility] CH[facility] MED & PEDS [address] [place] [address] Azeb Hall, MARTIN [address] [place] [address] documented as of this encounter Goals Goal Patient Goal Type Associated Problems Recent Progress Patient-Stated? Author Blood Pressure < 140/90 Blood Pressure 120/70(2024 12:56 PM EST) No Aida Ragland, PharmBear Record Your Blood Sugar As Directed General No Aida Ragland PharmD Hemoglobin A1c < 7 Result Component 6.6( 5 12:59 PM EST) No Adia Ragland PharmD documented as of this encounter Visit Diagnoses Diagnosis Cervicalgia documented in this encounter Additional Health Concerns Assessment Noted Time PHQ-9 Depression Total Score: 12 024 2:58 PM EDT documented as of this encounter Care Teams Matrix Bath Operator Relationship Specialty Start Date End Date Sariah Vickers ANP [address] [place] [address] PCP - General Family Medicine 09/23/19 Yuri Pierre, MikeD [address] [place] [phone] Pharmacist Internal Medicine 05/05/24 Basilio Hall MD [address] [place] [address] Cardiology 05/17/24 01/10/25 Ron Preciado MD [address] [place] [address] Pulmonary Disease 05/17/24 Felipe Alanis MD 11 [facility] [address] [place] [address] Cardiology 01/11/25 Rosemary Moses NP [address] [place] [address] Urology 01/11/25 Jodee May 11 [facility] [address] [place] [address] Gastroenterology 01/11/25 documented as of this encounter
--- OUTSIDE RECORDS SUMMARY | 2025-01-19 14:02 | XMS_ITS | Encounter Summary ---
Author Organization [employer] Address 75 [facility] 7t [place] [address] Care Team Providers Care Health Care Technician Name Role Phone Sariah Vickers Primary Care Provider [phone] Yuri Pierre PharmD Unavailable Basilio Hall MD Unavailable Ron Preciado MD Unavailable [phone] Felipe Alanis MD Unavailable [phone] Rosemary Moses NP Unavailable May Unavailable Reason for Visit * Reason Comments Med Refill Encounter Details Date Type Department Care Team (Late st Contact Info) Description 10/24/2023 Refill [facility] MEDICINE [address] [place] [address] Sariah Vickers ANP 230 [place] [address] Neck pain Social History Tobacco Use Types [...] 2:20 PM EST Office Visit [facility] WALK-IN CENTER [address] [place] [address] 02/03/2025 11:00 AM EST Medication Management [facility] MEDICINE [address] [place] [address] Yuri Pierre, MikeD 230 [place] [address] 04/04/2025 10:00 AM EST Telemedicine [facility] CHC MED & PEDS 505 [place] [address] Azeb Hall, MARTIN 505 [place] [address] documented as of this encounter Goals Goal [...] documented as of this encounter Care Teams Health Care Technician Relationship Specialty Start Date End Date Sariah Vickers, ANP 230 [place] [address] PCP - General Family Medicine 09/23/19 Yuri Pierre, MikeD [address] [place] [address] Pharmacist Internal Medicine 05/05/24 Basilio Hall MD 596 [place] [address] Cardiology 05/17/24 01/10/25 Ron Preciado MD 5 [place] [address] Pulmonary Disease 05/17/24 Felipe Alanis MD [address]rd [place] [address] Cardiology 01/11/25 Rosemary Moses NP [address] [place] [address] Urology 01/11/25 Jodee May [address] [place] [address] Gastroenterology 01/11/25 documented as of this encounter
--- OUTSIDE RECORDS SUMMARY | 2025-01-19 14:02 | XMS_ITS | Encounter Summary ---
Author Organization [employer] Address 75 [facility] 7t [place] [address] Care Team Providers Care Bee Producer Name Role Phone Sariah Vickers Primary Care Provider [phone] Yuri Pierre PharmD Unavailable Basilio Hall MD Unavailable Ron Preciado MD Unavailable [phone] Felipe Alanis MD Unavailable Rosemary Moses NP Unavailable May Unavailable Reason for Visit * Reason Comments Med Refill Encounter Details Date Type Department Care Team (Late st Contact Info) Description 06/17/2024 Refill [facility] WALK-IN CENTER 230 [place] [address] Sariah Vickers ANP 230 [place] [address] Neck pain Social History Tobacco Use Types [...] Description 01/19/2025 2:20 PM EST Office Visit [facility] WALK-IN CENTER 230 [place] [address] 02/03/2025 11:00 AM EST Medication Management [facility] MEDICINE 230 [place] [address] Yuri Pierre, PharmD 230 [place] [address] 04/04/2025 10:00 AM EST Telemedicine [facility] CHC MED & PEDS 505 [place] [address] Azeb Hall, MARTIN 505 [place] [address] documented as of this encounter Goals Goal [...] documented as of this encounter Care Teams Bee Producer Relationship Specialty Start Date End Date Sariah Vickers ANP 230 [place] [address] PCP - General Family Medicine 09/23/19 Yuri Pierre, MikeD [address] [place] [address] Pharmacist Internal Medicine 05/05/24 Basilio Hall MD 596 [place] [address] Cardiology 05/17/24 01/10/25 Ron Preciado MD 5 [place] [address] Pulmonary Disease 05/17/24 Felipe Alanis MD 11 [facility] 3rd [place] [address] Cardiology 01/11/25 Rosemary Moses NP [address] [place] [address] Urology 01/11/25 Jodee Umm 11 [facility] 3rd [place] [address] Gastroenterology 01/11/25 documented as of this encounter
--- OUTSIDE RECORDS SUMMARY | 2025-01-19 14:02 | XMS_ITS | Encounter Summary ---
Author Organization [employer] Address 75 [facility] 7t [place] [address] Care Team Providers Care Residential Roofer Helper Name Role Phone Sariah Vickers Primary Care Provider [phone] Yuri Pierre PharmD Unavailable Basilio Hall MD Unavailable Ron Preciado MD Unavailable [phone] Felipe Alanis MD Unavailable Rosemary Moses NP Unavailable May Unavailable Reason for Visit * Reason Comments Med Refill Encounter Details Date Type Department Care Team (Late st Contact Info) Description 12/17/2023 Refill [facility] MEDICINE 230 [place] [address] Sariah Vickers ANP 230 [place] [address] Chronic SI joint pain Social History Tobacco [...] Description 01/19/2025 2:20 PM EST Office Visit [facility] WALK-IN CENTER 230 [place] [address] 02/03/2025 11:00 AM EST Medication Management [facility] MEDICINE 230 [place] [address] Yuri Pierre, PharmD 230 [place] [address] 04/04/2025 10:00 AM EST Telemedicine [facility] CHC MED & PEDS 505 [place] [address] Azeb Hlal, MARTIN 505 [place] [address] documented as of this encounter Goals Goal Patient Goal Type Associated Problems Recent Progress Patient-Stated? Author Blood Pressure < 140/90 Blood Pressure 120/70(2024 12:56 PM EST) Aida Ernst, PharmD Record Your [...] as of this encounter Care Teams Residential Roofer Helper Relationship Specialty Start Date End Date Sariah Vickers ANP 230 [place] [address] PCP - General Family Medicine 09/23/19 Yuri Pierre, MikeD [address] [place] [address] Pharmacist Internal Medicine 05/05/24 Basilio Hall MD 596 [place] [address] Cardiology 05/17/24 01/10/25 Ron Preciado MD [address] [place] [address] Pulmonary Disease 05/17/24 Felipe Alanis MD 11 [facility] 3rd [place] [address] Cardiology 01/11/25 Rosemary Moses NP [address] [place] [address] Urology 01/11/25 Jodee Umm 11 [facility] 3rd [place] [address] Gastroenterology 01/11/25 documented as of this encounter
--- OUTSIDE RECORDS SUMMARY | 2025-01-19 14:02 | XMS_ITS | Encounter Summary ---
Author Organization [employer] Address 75 [facility] 7t [place] [address] Care Team Providers Care Supervisor Nurse Name Role Phone Sariah Vickers Primary Care Provider [phone] Yuri Pierre PharmD Unavailable Basilio Hall MD Unavailable Ron Preciado MD Unavailable [phone] Felipe Alanis MD Unavailable Rosemary Moses NP Unavailable May Unavailable Reason for Visit * Reason Comments Med Refill Encounter Details Date Type Department Care Team (Late st Contact Info) Description 11/14/2023 Refill [facility] MEDICINE 230 [place] [address] Sariah Vickers ANP 230 [place] [address] Neck pain Social History Tobacco Use Types [...] Visit [facility] WALK-IN CENTER 230 [place] [address] 02/03/2025 11:00 AM EST Medication Management [facility] MEDICINE 230 [place] [address] Yuri Pierre, MikeD 230 [place] [address] 04/04/2025 10:00 AM EST Telemedicine [facility] CHC MED & PEDS 505 [place] [address] Azeb Hall, MARTIN 505 [place] [address] documented as of this encounter Goals Goal [...] as of this encounter Care Teams Supervisor Nurse Relationship Specialty Start Date End Date Sariah Vickers, ANP 230 [place] [address] PCP - General Family Medicine 09/23/19 Yuri Pierre, MikeD [address] [place] [address] Pharmacist Internal Medicine 05/05/24 Basilio Hall MD 596 [place] [address] Cardiology 05/17/24 01/10/25 Ron Preciado MD 5 [place] [address] Pulmonary Disease 05/17/24 Felipe Alanis MD [address] [place] [address] Cardiology 01/11/25 Rosemary Moses NP [address] [place] [address] Urology 01/11/25 Jodee May [address] [place] [address] Gastroenterology 01/11/25 documented as of this encounter
--- OUTSIDE RECORDS SUMMARY | 2025-01-19 14:02 | XMS_ITS | Encounter Summary ---
Author Organization [employer] Address 75 [facility] 7t [place] [address] Care Team Providers Care Maintenance Technician 3Rd Shift Name Role Phone Sariah Vickers Primary Care Provider [phone] Yuri Pierre PharmD Unavailable [phone] Basilio Hall MD Unavailable Ron Preciado MD Unavailable [phone] Felipe Alanis MD Unavailable [phone] Rosemary Moses NP Unavailable May Unavailable Reason for Visit * Reason Comments Med Refill Encounter Details Date Type Department Care Team (Late st Contact Info) Description 11/24/2023 Refill [facility] MEDICINE 230 [place] [address] Sariah Vickers ANP 230 [place] [address] Vertigo Social History Tobacco Use Types Packs/Day [...] 2:20 PM EST Office Visit [facility] WALK-IN CENTER 230 [place] [address] 02/03/2025 11:00 AM EST Medication Management [facility] MEDICINE 230 [place] [address] Yuri Pierre, MikeD 230 [place] [address] 04/04/2025 10:00 AM EST Telemedicine [facility] CHC MED & PEDS 505 [place] [address] Azeb Hall, MARTIN 505 [place] [address] documented as of this encounter Goals Goal [...] documented as of this encounter Care Teams Maintenance Technician 3Rd Shift Relationship Specialty Start Date End Date Sariah Vickers ANP 230 [place] [address] PCP - General Family Medicine 09/23/19 Yuri Pierre, MikeD [address] [place] [address] Pharmacist Internal Medicine 05/05/24 Basilio Hall MD 596 [place] [address] Cardiology 05/17/24 01/10/25 Ron Preciado MD [address] [place] [address] Pulmonary Disease 05/17/24 Felipe Alanis MD 11 [facility] 3rd [place] [address] Cardiology 01/11/25 Rosemary Moses NP [address] [place] [address] Urology 01/11/25 Jodee Umm 11 [facility] 3rd [place] [address] Gastroenterology 01/11/25 documented as of this encounter
--- OUTSIDE RECORDS SUMMARY | 2025-01-19 14:02 | XMS_ITS | Encounter Summary ---
Author Organization [employer] Address 75 [facility] 7t [place] [address] Care Team Providers Care Membership Counselor Name Role Phone Sariah Vickers Primary Care Provider Yuri Pierre PharmD Unavailable [phone] Basilio Hall MD Unavailable Ron Preciado MD Unavailable [phone] Felipe Alanis MD Unavailable [phone] Rosemary Moses NP Unavailable May Unavailable Reason for Visit * Reason Comments Med Refill Encounter Details Date Type Department Care Team (Late st Contact Info) Description 01/04/2024 Refill [facility] CHC MED & PEDS [address] [place] [address] Sariah Vickers ANP 230 [place] [address] Cervicalgia Social History Tobacco Use Types Packs/Day [...] Description 01/19/2025 2:20 PM EST Office Visit [facility] WALK-IN CENTER 230 [place] [address] 02/03/2025 11:00 AM EST Medication Management [facility] MEDICINE 230 [place] [address] Yuri Pierre, PharmD 230 [place] [address] 04/04/2025 10:00 AM EST Telemedicine [facility] CHC MED & PEDS 505 [place] [address] Azeb Hall, MARTIN 505 [place] [address] documented as of this encounter Goals Goal [...] documented as of this encounter Care Teams Membership Counselor Relationship Specialty Start Date End Date Sariah Vickers ANP 230 [place] [address] PCP - General Family Medicine 09/23/19 Yuri Pierre, MikeD [address] [place] [address] Pharmacist Internal Medicine 05/05/24 Basilio Hall MD 596 [place] [address] Cardiology 05/17/24 01/10/25 Ron Preciado MD 5 [place] [address] Pulmonary Disease 05/17/24 Felipe Alanis MD 11 [facility] 3rd [place] [address] Cardiology 01/11/25 Rosemary Moses NP [address] [place] [address] Urology 01/11/25 Jodee May 11 [facility] 3rd [place] [address] Gastroenterology 01/11/25 documented as of this encounter
--- OUTSIDE RECORDS SUMMARY | 2025-01-19 14:02 | XMS_ITS | Encounter Summary ---
Author Organization [employer] Address 75 [facility] 7t [place] [address] Care Team Providers Care Middle School Tutor Name Role Phone Sariah Vickers Primary Care Provider [phone] Yuri Pierre PharmD Unavailable [phone] Basiloi Hall MD Unavailable Ron Preciado MD Unavailable [phone] Felipe Alanis MD Unavailable Rosemary Moses NP Unavailable May Unavailable Reason for Visit * Reason Comments Med Refill Encounter Details Date Type Department Care Team (Late st Contact Info) Description 10/03/2023 Refill [facility] WALK-IN CENTER 230 [place] [address] Sariah Vickers ANP 230 [place] [address] Chronic SI joint pain Social History Tobacco [...] [facility] WALK-IN CENTER 230 [place] [address] 02/03/2025 11:00 AM EST Medication Management [facility] MEDICINE 230 [place] [address] Yuri Pierre, PharmD 230 [place] [address] 04/04/2025 10:00 AM EST Telemedicine [facility] CHC MED & PEDS 505 [place] [address] Azeb Hall, MARTIN 505 [place] [address] documented as of this encounter Goals Goal [...] documented as of this encounter Care Teams Middle School Tutor Relationship Specialty Start Date End Date Sariah Vickers ANP 230 [place] [address] PCP - General Family Medicine 09/23/19 Yuri Pierre, MikeD 230 [place] [address] Pharmacist Internal Medicine 05/05/24 Basilio Hall MD [address] [place] [address] Cardiology 05/17/24 01/10/25 Ron Preciado MD [address] [place] [address] Pulmonary Disease 05/17/24 Felipe Alanis MD 11 [facility] 3rd [place] [address] Cardiology 01/11/25 Rosemary Moses NP [address] [place] [address] Urology 01/11/25 Umm Ellsworth 11 [facility] 3rd [place] [address] Gastroenterology 01/11/25 documented as of this encounter
--- OUTSIDE RECORDS SUMMARY | 2025-01-19 14:03 | XMS_ITS | Encounter Summary ---
Author Organization [employer] Address 75 [facility] 7t [place] [address] Care Team Providers Care Cnc Lathe Machinist Name Role Phone Sariah Vickers Primary Care Provider [phone] Yuri Pierre PharmD Unavailable [phone] Basilio Hall MD Unavailable Ron Preciado MD Unavailable [phone] Felipe Alanis MD Unavailable [phone] Rosemary Moses NP Unavailable May Unavailable Reason for Visit * Reason Onset Date Comments Nurse Triage 12/24/2022 Encounter Details Date Type Department Care Team (Late st Contact Info) Description 12/24/2022 Telephone [facility] MEDICINE 230 [place] [address] Sariah Vickers ANP 230 [place] [address] Nurse Triage Social History Tobacco Use Types [...] the past 12 months, has t he [employer], gas, oil or water [employer] threatened to shut off services in your [...] - 12/24/2022 1:11 PM EST Called pt.via [employer] spot billing clerk [phone] Benjamin. Pt. States that she wants to [...] regimen and possible referral to a new Laundry Tub Maker due to pt. Not having jeremie [...] accepted this outcome Please contact pt at [phone] documented in this encounter Plan of Treatment Upcoming Encounters Date Type Department Care Team (Late st Contact Info) Description 01/19/2025 2:20 PM EST Office Visit [facility] WALK[facility]IN CENTER 230 [place] [address] 02/03/2025 11:00 AM EST Medication Management [facility] MEDICINE 230 [place] [address] Yuri Pierre, PharmD [address] [place] [address] 04/04/2025 10:00 AM EST Telemedicine [facility] CHC MED & PEDS 505 [place] [address] Azeb Hall, RN 505 [place] [address] documented as of this encounter Goals Goal Patient Goal Type Associated Problems Recent Progress Patient-Stated? Author Blood Pressure < 140/90 Blood Pressure 120/70(2024 12:56 PM EST) No Aida Ragland PharmBear Record Your Blood Sugar As Directed General No Aida Ragland PharmBear Hemoglobin A1c < 7 Result Component 6.6( 12:59 PM EST) No Aida Ragland PharmD documented as of this encounter Visit Diagnoses Not on filedocumented in this encounter Care Teams Cnc Lathe Machinist Relationship Specialty Start Date End Date Sariah Vickers ANP [address] [place] [address] PCP - General Family Medicine 09/23/19 Yuri Pierre, PharmD [address] [place] [address] Pharmacist Internal Medicine 05/05/24 Basilio Hall MD [address] [place] [address] Cardiology 05/17/24 01/10/25 Ron Preciado MD [address] [place] [address] Pulmonary Disease 05/17/24 Felipe Alanis MD [address] 3rd [place] [address] Cardiology 01/11/25 Rosemary Moses NP [address] [place] [address] Urology 01/11/25 Jodee May [address] [place] [address] Gastroenterology 01/11/25 documented as of this encounter
--- OUTSIDE RECORDS SUMMARY | 2025-01-19 14:03 | XMS_ITS | Clinical Summary ---
Author Organization [facility] Address 175 [place] [address] Phone Care Team Providers Care Diamond Expert Name Role Phone Sariah Vickers NP Primary Care Provider [phone] Social History Tobacco Use Types Packs/Day Years Used Date Smoking Tobacco: Never Assessed Comments Unknown Sex and Gender Information Value Date Recorded Sex Assigned at Not on file Legal Sex Female 11:21 PM EST Gender Identity Not on file Sexual Orientation Not on file Plan of Treatment Health Maintenance Due Date Last Done Comments Breast Cancer Screening 1960 Colorectal Cancer Screening: Colonoscopy 1960 Diabetes: Annual GFR (Glomer ular Filtration Rate) 1960 Diabetes: Annual Foot Exam 1970 Diabetes: Annual Retina Eye Exam 1970 Pneumococcal Vaccine: 50+ Ye ars (1 of 2 - PCV) 08/06/1979 Cervical Cancer Screening: P ap Smear 1981 Hepatitis B Vaccines (2 of 3 - 19+ 3-dose series) 08/11/2018 07/14/2018 Zoster Vaccines (2 of 2) 06/04/2019 04/09/2019 Cholesterol Screening (Lipid Panel) 01/29/2022 HIV Screening 01/29/2022 Hepatitis C Screening 01/29/2022 Social Influencers of Health Screening 01/29/2022 Depression Screening 02/18/2024 COVID-19 Vaccine (1 - 2024-2 6 season) 2024 Influenza Vaccine (#1) 2024 11/09/2018 Diabetes: Annual Urine Albumin-Creatinine Ratio (uACR) 01/17/2025 Diabetes: Blood Sugar Contro l Test (HGBA1C) 01/17/2025 DTaP,Tdap,and Td Vaccines (2 - Td or [...] on patient's age to complete this topic Insurance [employer] MEDICARE Member Subscriber Plan / Payer (Ef fective 2013-Present) Name:NUVIA DA SILVA Relation to Subscriber:Self Name:Nuvia Da Silva Payer ID:[id number] Group ID:[id number] Type:Not on file Address: [place] [facility] [place] [id number] Care Teams Diamond Expert Relationship Specialty Start Date End Date Sariah Vickers NP [address] [place] [phone] PCP - General 12/03/23
--- OUTSIDE RECORDS SUMMARY | 2025-01-19 14:03 | XMS_ITS | Encounter Summary ---
Author Organization [employer] Address 75 [facility] 7t [place] [address] Care Team Providers Care Rubber Calender Helper Name Role Phone Sariah Vickers Primary Care Provider Yuri Pierre PharmD Unavailable [phone] Basilio Hall MD Unavailable Ron Preciado MD Unavailable Felipe Alanis MD Unavailable [phone] Rosemary Moses NP Unavailable May Unavailable Reason for Visit * Reason Comments Med Refill Encounter Details Date Type Department Care Team (Late st Contact Info) Description 03/07/[address] [facility] MEDICINE 230 [place], [place] [phone] Sariah Vickers ANP 230 [place] [address] Vertigo Social History Tobacco Use Types Packs/Day [...] the past 12 months, has t he [employer], gas, oil or water [employer] threatened to shut off services in your [...] Description 01/19/2025 2:20 PM EST Office Visit [facility] WALK-IN CENTER 230 [place] [address] 02/03/2025 11:00 AM EST Medication Management [facility] MEDICINE 230 [place] [address] Yuri Pierre, Dileep 230 [place] [address] 04/04/2025 10:[address] [facility] CHC MED & PEDS 505 [place] [address] Azeb Hall, RN 505 [place] [address] documented as of this encounter Goals Goal Patient Goal Type Associated Problems Recent Progress Patient-Stated? Author Blood Pressure < 140/90 Blood Pressure 120/70(2024 12:56 PM EST) No Aida Ragland PharmD Record Your Blood Sugar As Directed General No Aida Ragland PharmD Hemoglobin A1c < 7 Result Component 6.6( 5 12:59 PM EST) Aida Ernst PharmD documented as of this encounter Visit Diagnoses Diagnosis Vertigo Dizziness and giddiness documented in this encounter Care Teams Rubber Calender Helper Relationship Specialty Start Date End Date Sariah Vickers ANP 230 [place] [address] PCP - General Family Medicine 09/23/19 Yuri Pierre, PharmD 230 [place] [address] Pharmacist Internal Medicine 05/05/24 Basilio Hall MD [address] [place] [address] Cardiology 05/17/24 01/10/25 Ron Preciado MD 5 [place] [address] Pulmonary Disease 05/17/24 Felipe Alanis MD 11 [facility] 3rd [place] [address] Cardiology 01/11/25 Rosemary Moses NP [address] [place] [address] Urology 01/11/25 Jodee Umm 11 [facility] 3rd [place] [address] Gastroenterology 01/11/25 documented as of this encounter
--- OUTSIDE RECORDS SUMMARY | 2025-01-19 14:03 | XMS_ITS | Encounter Summary ---
Author Organization [employer] Address 75 [facility] 7t [place] [address] Care Team Providers Care Full Stack Php Developer Name Role Phone Sariah Vickers Primary Care Provider Yuri Pierre PharmD Unavailable Basilio Hall MD Unavailable Ron Preciado MD Unavailable [phone] Felipe Alanis MD Unavailable [phone] Rosemary Moses NP Unavailable May Unavailable Reason for Visit * Reason Comments Med Refill Encounter Details Date Type Department Care Team (Late st Contact Info) Description 07/10/2022 Refill [facility] MEDICINE 230 [place] [address] Sariah Vickers ANP 230 [place] [address] Vertigo Social History Tobacco Use Types Packs/Day [...] 01/19/2025 2:20 PM EST Office Visit [facility] WALK-IN CENTER [address] [place] [address] 02/03/2025 11:00 AM EST Medication Management [facility] MEDICINE [address] [place] [address] Yuri Pierre, PharmBear [address] [place] [address] 04/04/2025 10:00 AM EST Telemedicine [facility] CHC MED & PEDS 505 [place] [address] Azeb Hall, RN 505 [place] [address] documented as of this encounter Visit Diagnoses Diagnosis Vertigo Dizziness and giddiness documented in this encounter Care Teams Full Stack Php Developer Relationship Specialty Start Date End Date Sariah Vickers ANP [address] [place] [address] PCP - General Family Medicine 09/23/19 Yuri Pierre, PharmD [address] [place] [address] Pharmacist Internal Medicine 05/05/24 Basilio Hall MD 596 [place] [address] Cardiology 05/17/24 01/10/25 Ron Preciado MD [address] [place] [address] Pulmonary Disease 05/17/24 Felipe Alanis MD [address] 3rd [place] [address] Cardiology 01/11/25 Rosemary Moses NP [address] [place] [address] Urology 01/11/25 Umm Ellsworth [address] 3rd [place] [address] Gastroenterology 01/11/25 documented as of this encounter
--- OUTSIDE RECORDS SUMMARY | 2025-01-19 14:03 | XMS_ITS | Encounter Summary ---
Author Organization [employer] Address [address] [facility] 7t [place] [address] Care Team Providers Care Assistant Warehouse Manager Name Role Phone Sariah Vickers Primary Care Provider Yuri Pierre PharmD Unavailable [phone] Basilio Hall MD Unavailable [phone] Ron Preciado MD Unavailable [phone] Felipe Alanis MD Unavailable Rosemary Moses NP Unavailable May Unavailable Reason for Visit * Reason Comments Med Refill Encounter Details Date Type Department Care Team (Late st Contact Info) Description 12/19/2022 Refill [facility] MEDICINE 230 [place] [address] Sariah iVckers ANP 230 [place] [address] Vertigo Social History Tobacco Use Types Packs/Day [...] the past 12 months, has t he [employer], gas, oil or water import2 threatened to shut off services in your [...] Description 01/19/2025 2:20 PM EST Office Visit [facility] 230 [place] [address] 02/03/2025 11:00 AM EST Medication Management [facility] MEDICINE 230 [place] [address] Yuri Pierre, Dileep 230 [place] [address] 04/04/2025 10:00 AM EST Telemedicine [facility] MED & PEDS 505 [place] [address] Azeb Hall, RN 505 [place] [address] documented as of this encounter Goals Goal [...] giddiness documented in this encounter Care Teams Assistant Warehouse Manager Relationship Specialty Start Date End Date Sariah Vickers ANP 230 [place] [address] PCP - General Family Medicine 09/23/19 Yuri Pierre, PharmD 230 [place] [address] Pharmacist Internal Medicine 05/05/24 Basilio Hall MD 596 [place] [address] Cardiology 05/17/24 01/10/25 Ron Preciado MD 5 [place] [address] Pulmonary Disease 05/17/24 Felipe Alanis MD 11 [facility] 3rd [place] [address] Cardiology 01/11/25 Rosemary Moses NP [address] [place] [address] Urology 01/11/25 Jodee Umm 11 [facility] 3rd [place] [address] Gastroenterology 01/11/25 documented as of this encounter
--- OUTSIDE RECORDS SUMMARY | 2025-01-19 14:03 | XMS_ITS | Encounter Summary ---
Author Organization [employer] Address 75 [facility] 7t [place] [address] Care Team Providers Care Railroad Car Cleaner Name Role Phone Sariah Vickers Primary Care Provider [phone] Yuri Pierre PharmD Unavailable [phone] Basilio Hall MD Unavailable Ron Preciado MD Unavailable [phone] Felipe Alanis MD Unavailable Rosemary Moses NP Unavailable May Unavailable Reason for Visit * Reason Comments Med Refill Encounter Details Date Type Department Care Team (Late st Contact Info) Description 05/21/[address] [facility] MEDICINE 230 [place] [address] Sariah Vickers ANP 230 [place] [address] Neck pain Social History Tobacco Use Types [...] the past 12 months, has t he [employer], gas, oil or water company threatened to [...] PM EST Office Visit [facility] WALK-IN CENTER 230 [place] [address] 02/03/2025 11:00 AM EST Medication Management [facility] MEDICINE 230 [place] [address] Yuri Pierre, PharmD 230 [place] [address] 04/04/2025 10:00 AM EST Telemedicine [facility] CHC MED & PEDS 505 [place] [address] Azeb Hall, RN 505 [place] [address] documented as of this encounter Goals Goal [...] Cervicalgia documented in this encounter Care Teams Railroad Car Cleaner Relationship Specialty Start Date End Date Sariah Vickers ANP 230 [place] [address] PCP - General Family Medicine 09/23/19 Yuri Pierre, MikeD 230 [place] [address] Pharmacist Internal Medicine 05/05/24 Basilio Hall MD 596 [place] [address] Cardiology 05/17/24 01/10/25 Ron Preciado MD 5 [place] [address] Pulmonary Disease 05/17/24 Felipe Alanis MD [address] [place] [address] Cardiology 01/11/25 Rosemary Moses NP [address] [place] [address] Urology 01/11/25 Jodee Umm [address]rd [place] [address] Gastroenterology 01/11/25 documented as of this encounter
--- OUTSIDE RECORDS SUMMARY | 2025-01-19 14:03 | XMS_ITS | Encounter Summary ---
Author Organization [employer] Address 75 [facility] 7t [place] [address] Care Team Providers Care Litigation Attorney Name Role Phone Sariah Vickers Primary Care Provider Yuri Pierre PharmD Unavailable [phone] Basilio Hall MD Unavailable Ron Preciado MD Unavailable [phone] Felipe Alanis MD Unavailable [phone] Rosemary Moses NP Unavailable May Unavailable Reason for Visit * Reason Comments Med Refill Encounter Details Date Type Department Care Team (Late st Contact Info) Description 11/12/2024 Refill [facility] MEDICINE 230 [place] [address] Sariah Vickers ANP 230 [place] [address] Neck pain Social History Tobacco Use Types [...] 2:20 PM EST Office Visit [facility] WALK-IN CENTER 230 [place] [address] 02/03/2025 11:00 AM EST Medication Management [facility] MEDICINE 230 [place] [address] Yuri Pierre, PharmD 230 [place] [address] 04/04/2025 10:00 AM EST Telemedicine [facility] CHC MED & PEDS 505 [place] [address] Azeb Hall, RN 505 [place] [address] documented as of this encounter Goals Goal [...] documented as of this encounter Care Teams Litigation Attorney Relationship Specialty Start Date End Date Sariah Vickers ANP 230 [place] [address] PCP - General Family Medicine 09/23/19 Yuri Pierre, MikeD 230 [place] [address] Pharmacist Internal Medicine 05/05/24 Basilio Hall MD 596 [place] [address] Cardiology 05/17/24 01/10/25 Ron Preciado MD 5 [place] [address] Pulmonary Disease 05/17/24 Felipe Alanis MD [address] [place] [address] Cardiology 01/11/25 Rosemary Moses NP [address] [place] [address] Urology 01/11/25 Jodee Umm [address] [place] [address] Gastroenterology 01/11/25 documented as of this encounter
--- OUTSIDE RECORDS SUMMARY | 2025-01-19 14:03 | XMS_ITS | Encounter Summary ---
Author Organization [employer] Address 75 [facility] 7t [place] [address] Care Team Providers Care Building Insulation Installer Name Role Phone Sariah Vickers Primary Care Provider Yuri Pierre PharmD Unavailable [phone] Basilio Hall MD Unavailable [phone] Ron Preciado MD Unavailable [phone] Felipe Alanis MD Unavailable [phone] Rosemary Moses NP Unavailable May Unavailable Reason for Visit * Reason Onset Date Comments Referral 08/02/2024 Encounter Details Date Type Department Care Team (Late st Contact Info) Description 08/02/2024 Telephone [facility] MEDICINE 230 [place], [place] [phone] Sariah Vickers ANP 230 [place], [place] [phone] Referral Social History Tobacco Use Types Packs/Day [...] for vertigo therapy. Please contact pt at [phone]. (Bulgarian Speaker) documented in this encounter Plan of Treatment Upcoming Encounters Date Type Department Care Team ([facility] st Contact Info) Description 01/19/2025 2:20 PM EST Office Visit [facility] WALK-IN [address] [address] 02/03/2025 11:00 AM EST Medication Management [facility] MEDICINE 230 [place] [address] Yuri Pierre, Dileep 230 [place] [address] 04/04/2025 10:00 AM EST Telemedicine [facility] CHC MED & PEDS 505 [place] [address] Azeb Hall, MARTIN 505 [place], [place] documented as of this encounter Goals [...] as of this encounter Care Teams Building Insulation Installer Relationship Specialty Start Date End Date Sariah Vickers ANP [address] [place] [address] PCP - General Family Medicine 09/23/19 Yuri Pierre, PharmD [address] [place] [address] Pharmacist Internal Medicine 05/05/24 Basilio Hall MD 596 [place] [address] Cardiology 05/17/24 01/10/25 Ron Preciado MD [address] [place] [address] Pulmonary Disease 05/17/24 Felipe Alanis MD [address] 3rd [place] [address] Cardiology 01/11/25 Rosemary Moses NP [address] [place] [address] Urology 01/11/25 Jodee Umm [address] 3rd [place] [address] Gastroenterology 01/11/25 documented as of this encounter
--- OUTSIDE RECORDS SUMMARY | 2025-01-19 14:03 | XMS_ITS | Encounter Summary ---
Author Organization [employer] Address 75 [facility] 7t [place] [address] Care Team Providers Care Senior Clinical Data Coordinator Name Role Phone Sariah Vickers Primary Care Provider Yuri Pierre PharmD Unavailable [phone] Basilio Hall MD Unavailable Ron Preciado MD Unavailable [phone] Felipe Alanis MD Unavailable Rosemary Moses NP Unavailable May Unavailable Reason for Visit * Reason Comments Med Refill Encounter Details Date Type Department Care Team (Late st Contact Info) Description 12/27/2022 Refill [facility] MEDICINE 230 [place] [address] Sariah Vickers ANP 230 [place] [address] Neck pain Social History Tobacco Use Types [...] the past 12 months, has t he [employer], gas, oil or water [employer] ([employer]) threatened to shut off services in your [...] Description 01/19/2025 2:20 PM EST Office Visit [facility] WALK-IN CENTER 230 [place] [address] 02/03/2025 11:00 AM EST Medication Management [facility] MEDICINE 230 [place] [address] Yuri Pierre, Dileep 230 [place] [address] 04/04/2025 10:00 AM EST Telemedicine [facility] CHC MED & PEDS 505 [place] [address] Azeb Hall, RN 505 [place] [address] documented as of this encounter Goals Goal [...] documented in this encounter Care Teams Senior Clinical Data Coordinator Relationship Specialty Start Date End Date Sariah Vickers ANP 230 [place] [address] PCP - General Family Medicine 09/23/19 Yuri Pierre, PharmD 230 [place] [address] Pharmacist Internal Medicine 05/05/24 Basilio Hall MD 596 [place] [address] Cardiology 05/17/24 01/10/25 Ron Preciado MD 5 [place] [address] Pulmonary Disease 05/17/24 Felipe Alanis MD 11 [facility] 3rd [place] [address] Cardiology 01/11/25 Rosemary Moses NP 10 [facility] [address] [place] [address] Urology 01/11/25 Umm [place] 11 [facility] 3rd [place] [address] Gastroenterology 01/11/25 documented as of this encounter
--- OUTSIDE RECORDS SUMMARY | 2025-01-19 14:03 | XMS_ITS | Encounter Summary ---
Author Organization [employer] Address 75 [facility] 7t [place] [address] Care Team Providers Care Stop Attacher Name Role Phone Sariah Vickers Primary Care Provider [phone] Yuri Pierre PharmD Unavailable [phone] Basilio Hall MD Unavailable Ron Preciado MD Unavailable [phone] Felipe Alanis MD Unavailable Rosemary Moses NP Unavailable May Unavailable Reason for Visit * Reason Onset Date Comments Med Refill 03/04/2023 Encounter Details Date Type Department Care Team (Late st Contact Info) Description 03/04/2023 Telephone [facility] MEDICINE 230 [place], [place] [phone] Sariah Vickers ANP 230 [place] [address] Med Refill Social History Tobacco Use Types [...] the past 12 months, has t he [employer], gas, oil or water company threatened to [...] 50 MG tablet To be sent to: [facility] [place], [place] - [address] [place] [address] documented in this encounter Plan of Treatment Upcoming Encounters Date Type Department Care Team ([facility] st Contact Info) Description 01/19/2025 2:20 PM EST Office Visit [facility] WALK-IN CENTER 230 [place] [address] 02/03/2025 11:00 AM EST Medication Management [facility] MEDICINE 230 [place] [address] uYri Pierre, PharmD 230 [place] [address] 04/04/2025 10:00 AM EST Telemedicine [facility] CHC MED & PEDS 505 [place] [address] Azeb Hall, MARTIN 505 [place] [address] documented as of this encounter Goals Goal [...] on filedocumented in this encounter Care Teams Stop Attacher Relationship Specialty Start Date End Date Sariah Vickers ANP [address] [place] [address] PCP - General Family Medicine 09/23/19 Yuri Pierre, MikeD [address] [place] [address] Pharmacist Internal Medicine 05/05/24 Basilio Hall MD [address] [place] [address] Cardiology 05/17/24 01/10/25 Ron Preciado MD 5 [place] [address] Pulmonary Disease 05/17/24 Felipe Alanis MD 11 [facility] 3rd [place] [address] Cardiology 01/11/25 Rosemary Moses NP [address] [facility] [address] [place] [address] Urology 01/11/25 Umm [place] 11 [facility] 3rd [place] [address] Gastroenterology 01/11/25 documented as of this encounter
--- OUTSIDE RECORDS SUMMARY | 2025-01-19 14:03 | XMS_ITS | Encounter Summary ---
Author Organization [employer] Address 75 [facility] 7t [place] [address] Care Team Providers Care Show Host Or Hostess Name Role Phone Sariah Vickers Primary Care Provider Yuri Pierre PharmD Unavailable [phone] Basilio Hall MD Unavailable Ron Preciado MD Unavailable [phone] Felipe Alanis MD Unavailable Rosemary Moses NP Unavailable May Unavailable Reason for Visit * Reason Comments Med Refill Encounter Details Date Type Department Care Team (Late st Contact Info) Description 05/23/2024 Refill [facility] CHC MED & PEDS [address] [place] [address] Sariah Vickers ANP 230 [place] [address] Cervicalgia Social History Tobacco Use Types Packs/Day [...] [facility] 230 [place] [address] 02/03/2025 11:00 AM EST Medication Management [facility] MEDICINE 230 [place] [address] Yuri Pierre, PharmD 230 [place] [address] 04/04/2025 10:00 AM EST Telemedicine [facility] CHC MED & PEDS 505 [place] [address] Azeb Hall, MARTIN 505 [place] [address] documented as of this encounter Goals Goal [...] documented as of this encounter Care Teams Show Host Or Hostess Relationship Specialty Start Date End Date Sariah Vickers ANP 230 [place] [address] PCP - General Family Medicine 09/23/19 Yuri Pierre, MikeD [address] [place] [address] Pharmacist Internal Medicine 05/05/24 Basilio Hall MD 596 [place] [address] Cardiology 05/17/24 01/10/25 Ron Preciado MD 5 [place] [address] Pulmonary Disease 05/17/24 Felipe Alanis MD 11 [facility] 3rd [place] [address] Cardiology 01/11/25 Rosemary Mosse NP [address] [place] [address] Urology 01/11/25 Jodee May 11 [facility] 3rd [place] [address] Gastroenterology 01/11/25 documented as of this encounter
--- OUTSIDE RECORDS SUMMARY | 2025-01-19 14:03 | XMS_ITS | Encounter Summary ---
Author Organization [employer] Address 75 [facility] 7t [place] [address] Care Team Providers Care Electrophysiologist Name Role Phone Sariah Vickers KAYLEE Primary Care Provider [phone] Yuri Pierre PharmD Unavailable [phone] Basilio Hall MD Unavailable Ron Preciado MD Unavailable [phone] Felipe Alanis MD Unavailable Rosemary Moses NP Unavailable May Unavailable Reason for Visit * Reason Comments Med Refill Encounter Details Date Type Department Care Team (Late st Contact Info) Description 10/04/2024 Refill [facility] CHC MED & PEDS [address] [place] [address] Zakia Uriostegui, RESIDENT CARE MANAGER RN 230 [place] [address] Type 2 diabetes mellitus with hyperglycemia (CMS/HCC) [...] Description 01/19/2025 2:20 PM EST Office Visit [facility] WALK-IN CENTER 230 [place] [address] 02/03/2025 11:00 AM EST Medication Management [facility] MEDICINE 230 [place] [address] Yuri Pierre, PharmD 230 [place] [address] 04/04/2025 10:00 AM EST Telemedicine [facility] CHC MED & PEDS 505 [place] [address] Azeb Hall, RN 505 [place] [address] documented as of this encounter Goals Goal [...] documented as of this encounter Care Teams Electrophysiologist Relationship Specialty Start Date End Date Sariah Vickers ANP 230 [place] [address] PCP - General Family Medicine 09/23/19 Yuri Pierre, MikeD [address] [place] [address] Pharmacist Internal Medicine 05/05/24 Basilio Hall MD 596 [place] [address] Cardiology 05/17/24 01/10/25 Ron Preciado MD 5 [place] [address] Pulmonary Disease 05/17/24 Felipe Alanis MD [address] 3rd [place] [address] Cardiology 01/11/25 Rosemary Moses NP [address] [place] [address] Urology 01/11/25 Jodee May [address] 3rd [place] [address] Gastroenterology 01/11/25 documented as of this encounter
--- OUTSIDE RECORDS SUMMARY | 2025-01-19 14:03 | XMS_ITS | Encounter Summary ---
Author Organization [employer] Address 75 [facility] 7t [place] [address] Care Team Providers Care Supervisor Water Softener Service Name Role Phone Sariah Vickers Primary Care Provider Yuri Pierre PharmD Unavailable Basilio Hall MD Unavailable Ron Preciado MD Unavailable [phone] Felipe Alanis MD Unavailable Rosemary Moses NP Unavailable May Unavailable Reason for Visit * Reason Comments Med Refill Encounter Details Date Type Department Care Team (Late st Contact Info) Description 12/17/2024 Refill [facility] MEDICINE 230 [place] [address] Sariah Vickers ANP 230 [place] [address] Chronic SI joint pain Social History Tobacco [...] Description 01/19/2025 2:20 PM EST Office Visit [facility] WALK-IN CENTER 230 [place] [address] 02/03/2025 11:00 AM EST Medication Management [facility] MEDICINE 230 [place] [address] Yuri Pierre, PharmD 230 [place] [address] 04/04/2025 10:00 AM EST Telemedicine [facility] CHC MED & PEDS 505 [place] [address] Azeb Hall, RN 505 [place] [address] documented as of this encounter Goals Goal Patient Goal Type Associated Problems Recent Progress Patient-Stated? Author Blood Pressure < 140/90 Blood Pressure 120/70(2024 12:56 PM EST) No PhanisAida Cheng, PharmD Record Your Blood Sugar As Directed General No Phanis-Gambl Aida urbina, PharmD Hemoglobin A1c < 7 Result Component 6.6( 12:59 PM EST) No Phanis-Gambl Aida urbina, PharmD documented as of this encounter Visit Diagnoses Diagnosis Chronic SI joint pain Disorders of sacrum documented in this encounter Additional Health Concerns Assessment Noted Time PHQ-9 Depression Total Score: 025 5:30 PM EDT documented as of this encounter Care Teams Supervisor Water Softener Service Relationship Specialty Start Date End Date Sariah Vickers ANP 230 [place] [address] PCP - General Family Medicine 09/23/19 Yuri Pierre, MikeD [address] [place] [address] Pharmacist Internal Medicine 05/05/24 Basilio Hall MD 596 [place] [address] Cardiology 05/17/24 01/10/25 Ron Preciado MD 5 [place] [address] Pulmonary Disease 05/17/24 Felipe Alanis MD [address] [place] [address] Cardiology 01/11/25 Rosemary Moses NP [address] [place] [address] Urology 01/11/25 Umm [place] [address] [place] [address] Gastroenterology 01/11/25 documented as of this encounter
--- OUTSIDE RECORDS SUMMARY | 2025-01-19 14:03 | XMS_ITS | Encounter Summary ---
Author Organization [employer] Address 75 [facility] 7t [place] [address] Care Team Providers Care Stair Builder Name Role Phone Sariah Vickers Primary Care Provider [phone] Yuri Pierre PharmD Unavailable Basilio Hall MD Unavailable Rno Preciado MD Unavailable [phone] Felipe Alanis MD Unavailable Rosemary Moses NP Unavailable May Unavailable Reason for Visit * Reason Onset Date Comments Appointment Request 09/03/2024 Encounter Details Date Type Department Care Team (Late st Contact Info) Description 09/03/2024 Telephone [facility] MEDICINE 230 [place], [place] [phone] Sariah Vickers ANP 230 [place] [address] Appointment Request Social History Tobacco Use Types [...] when making the apt. Contact pt at [phone] documented in this encounter Plan of Treatment Upcoming Encounters Date Type Department Care Team (Late st Contact Info) Description 01/19/2025 2:20 PM EST Office Visit [facility] 230 [place] [address] 02/03/2025 11:00 AM EST Medication Management [facility] MEDICINE [address] [place] [address] Yuri Pierre, PharmD 230 [place] [address] 04/04/2025 10:00 AM EST Telemedicine [facility] MED & PEDS 505 [place] [address] Azeb Hall, RN [address] [place], [place] documented as of this encounter Goals Goal Patient Goal Type Associated Problems Recent Progress Patient-Stated? Author Blood Pressure < 140/90 Blood Pressure 120/70(2024 12:56 PM EST) No Piers-Gambl Veronica urbinasa, PharmD Record Your Blood Sugar [...] documented as of this encounter Care Teams Stair Builder Relationship Specialty Start Date End Date Sariah Vickers ANP 230 [place] [address] PCP - General Family Medicine 09/23/19 Yuri Pierre, MikeD 230 [place] [address] Pharmacist Internal Medicine 05/05/24 Basilio Hall MD 5[address] [place] [address] Cardiology 05/17/24 01/10/25 Ron Preciado MD 5 [place] [address] Pulmonary Disease 05/17/24 Felipe Alanis MD 11 [facility] 3rd [place] [address] Cardiology 01/11/25 Rosemary Moses NP [address] [place] [address] Urology 01/11/25 Jodee May [address] 3rd [place] [address] Gastroenterology 01/11/25 documented as of this encounter
--- OUTSIDE RECORDS SUMMARY | 2025-01-19 14:03 | XMS_ITS | Encounter Summary ---
Author Organization [employer] Address 75 [facility] 7t [place] [address] Care Team Providers Care Equipment Sales Specialist Name Role Phone Sariah Vickers KAYLEE Primary Care Provider [phone] Yuri Pierre PharmD Unavailable Basilio Hall MD Unavailable Ron Preciado MD Unavailable [phone] Felipe Alanis MD Unavailable [phone] Rosemary Moses NP Unavailable May Unavailable Reason for Visit * Reason Comments Med Refill Encounter Details Date Type Department Care Team (Late st Contact Info) Description 11/11/2024 Refill [facility] 230 [place] [address] Yogesh Gomez, JOHN 230 [place] [address] Social History Tobacco Use Types Packs/Day Years [...] Description 01/19/2025 2:20 PM EST Office Visit [facility] [address] [place] [address] 02/03/2025 11:00 AM EST Medication Management [facility] MED[facility] 230 [place] [address] Yuri Pierre, PharmD 230 [place] [address] 04/04/2025 10:00 AM EST Telemedicine [facility] MED & PEDS 505 [place] [address] Azeb Hall, RN 505 [place], [place] documented as of this encounter Goals [...] as of this encounter Care Teams Equipment Sales Specialist Relationship Specialty Start Date End Date Sariah Vickers ANP 230 [place] [address] PCP - General Family Medicine 09/23/19 Yuri Pierre, MikeD 230 [place] [address] Pharmacist Internal Medicine 05/05/24 Basilio Hall MD 596 [place] [address] Cardiology 05/17/24 01/10/25 Ron Preciado MD 5 [place] [address] Pulmonary Disease 05/17/24 Felipe Alanis MD [address] 3rd [place] [address] Cardiology 01/11/25 Rosemary Moses NP [address] [place] [address] Urology 01/11/[address] [address] 3rd Floor [place] [address] Gastroenterology 01/11/25 documented as of this encounter
--- OUTSIDE RECORDS SUMMARY | 2025-01-19 14:03 | XMS_ITS | Encounter Summary ---
Author Organization [employer] Address 75 [facility] 7t [place] [address] Care Team Providers Care Follow Up Manager Name Role Phone Sariah Vickers KAYLEE Primary Care Provider Yuri Pierre PharmD Unavailable [phone] Basilio Hall MD Unavailable [phone] Ron Preciado MD Unavailable [phone] Felipe Alanis MD Unavailable Rosemary Moses NP Unavailable May Unavailable Reason for Visit * Reason Comments Med Refill Encounter Details Date Type Department Care Team (Late st Contact Info) Description 03/04/2023 Refill [facility] [address] [place], [place] [phone] Brittney Nava MD 230 [place], [place] [phone] Social History Tobacco Use Types Packs/Day Years [...] the past 12 months, has t he [employer], gas, oil or water [employer] threatened to shut off services in your [...] Description 01/19/2025 2:20 PM EST Office Visit [facility] [address] [place] [address] 02/03/2025 11:00 AM EST Medication Management [facility] [address] [place] [address] Yuri Pierre PharmD 230 [place] [address] 04/04/2025 10:00 AM EST Telemedicine [facility] 505 [place] [address] Azeb Hall, RN 505 [place] [address] documented as of this encounter Goals Goal [...] on filedocumented in this encounter Care Teams Follow Up Manager Relationship Specialty Start Date End Date Sariah Vickers ANP [address] [place] [address] PCP - General Family Medicine 09/23/19 Yuri Pierre, MikeD 230 [place] [address] Pharmacist Internal Medicine 05/05/24 Basilio Hall MD 596 [place] [address] Cardiology 05/17/24 01/10/25 Ron Preciado MD 5 [place] [address] Pulmonary Disease 05/17/24 Felipe Alanis MD [facility] 3rd [place] [address] Cardiology 01/11/25 Rosemary Moses NP [address] [place] [address] Urology 01/11/25 Jodee Umm 11 [facility] 3rd [place] [address] Gastroenterology 01/11/25 documented as of this encounter
--- OUTSIDE RECORDS SUMMARY | 2025-01-19 14:03 | XMS_ITS | Encounter Summary ---
Author Organization [employer] Address 75 [facility] 7t [place] [address] Care Team Providers Care Cash Surrender Calculator Name Role Phone Sariah Vickers Primary Care Provider [phone] Yuri Pierre PharmD Unavailable Ron Preciado MD Unavailable [phone] Felipe Alanis MD Unavailable Rosemary Moses NP Unavailable EllsworthMay Unavailable Reason for Visit * Reason Comments Med Refill Encounter Details Date Type Department Care Team (Late st Contact Info) Description 01/16/2025 Refill [facility] 230 [place], [place] [phone] Sariah Vickers ANP 230 [place] [address] Essential hypertension Social History Tobacco Use Types [...] the past 12 months, has t he [employer], gas, oil or water company threatened to [...] 2:20 PM EST Office Visit [facility] 230 [place] [address] 02/03/2025 11:00 AM EST Medication Management [facility] 230 [place] [address] Yuri Pierre, PharmD 230 [place] [address] 04/04/2025 10:00 AM EST Telemedicine [facility] 505 [place] [address] Azeb Hall, MARTIN 505 [place] [address] documented as of this encounter Goals Goal Patient Goal Type Associated Problems Recent Progress Patient-Stated? Author Blood Pressure < 140/90 Blood Pressure 120/70(2024 12:56 PM EST) No Aida Corona PharmD Record Your Blood Sugar As Directed General No Aida Corona PharmD Hemoglobin A1c < 7 Result Component [...] Care Plan Weekly blood pressure task No zAeb Hall RN Weekly blood pressure task Care [...] 01/12/2025 Patient has chronic kidney disease 01/12/2025 Assessment Noted Time PHQ-9 Depression Total Score: 14 025 1:03 PM EST documented as of this encounter Care Teams Cash Surrender Calculator Relationship Specialty Start Date End Date Sariah Vickers ANP 230 [place] [address] PCP - General Family Medicine 09/23/19 Yuri Pierre, PharmD 230 [place] [address] Pharmacist Internal Medicine 05/05/24 Ron Preciado MD 5 [place] [address] Pulmonary Disease 05/17/24 Felipe Alanis MD [address]rd [place] [address] Cardiology 01/11/25 Rosemary Moses NP [address] [place] [address] Urology 01/11/25 Umm Ell[place] [address] 3rd [place] [address] Gastroenterology 01/11/25 documented as of this encounter
--- OUTSIDE RECORDS SUMMARY | 2025-01-19 14:03 | XMS_ITS | Encounter Summary ---
Author Organization [employer] Address 75 [facility] 7t [place] [address] Care Team Providers Care Retail Field Merchandiser Name Role Phone Sariah Vickers Primary Care Provider Yuri Pierre PharmD Unavailable Basilio Hall MD Unavailable Ron Preciado MD Unavailable Felipe Alanis MD Unavailable Rosemary Moses NP Unavailable May Unavailable Reason for Visit * Reason Onset Date Comments Referral 05/17/2022 Encounter Details Date Type Department Care Team (Late st Contact Info) Description 05/17/2022 Telephone [facility] 230 [place], [place] [phone] Sariah Vickers ANP 230 [place] [address] Referral Social History Tobacco Use Types Packs/Day [...] guide to vertigo. Please contact pt at [phone] documented in this encounter Plan of Treatment Upcoming Encounters Date Type Department Care Team (Late st Contact Info) Description 01/19/2025 2:20 PM EST Office Visit [facility] [address] [place] [address] 02/03/2025 11:00 AM EST Medication Management [facility] [address] [place] [address] Yuri Pierre, PharmD [address] [place] [address] 04/04/2025 10:00 AM EST Telemedicine [facility] 505 [place] [address] Azeb Hall, RN 505 [place] [address] documented as of this encounter Visit Diagnoses Not on filedocumented in this encounter Care Teams Retail Field Merchandiser Relationship Specialty Start Date End Date Sariah Vickers ANP [address] [place] [address] PCP - General Family Medicine 09/23/19 Yuri Pierre, PharmD [address] [place] [address] Pharmacist Internal Medicine 05/05/24 Basilio Hall MD 596 [place] [address] Cardiology 05/17/24 01/10/25 Ron Preciado MD 5 [place] [address] Pulmonary Disease 05/17/24 Felipe Alanis MD [address] 3rd [place] [address] Cardiology 01/11/25 Rosemary Moses NP [address] [place] [address] Urology 01/11/25 Jodee Umm [address] 3rd [place] [address] Gastroenterology 01/11/25 documented as of this encounter
--- OUTSIDE RECORDS SUMMARY | 2025-01-19 14:03 | XMS_ITS | Encounter Summary ---
Author Organization [employer] Address 75 [facility] 7t [place] [address] Care Team Providers Care Health Care Liaison Name Role Phone Sariah Vikcers Primary Care Provider Yuri Pierre PharmD Unavailable [phone] Basilio Hall MD Unavailable Ron Preciado MD Unavailable [phone] Felipe Alanis MD Unavailable Rosemary Moses NP Unavailable May Unavailable Reason for Visit * Reason Comments Med Refill Encounter Details Date Type Department Care Team (Late st Contact Info) Description 05/09/2023 Refill [facility] 230 [place] [address] Sariah Vickers ANP 230 [place] [address] High cholesterol Social History Tobacco Use Types [...] the past 12 months, has t he [employer], gas, oil or water [employer] threatened to shut off services in your [...] 2:20 PM EST Office Visit [facility] 230 [place] [address] 02/03/2025 11:00 AM EST Medication Management [facility] MED[facility] 230 [place] [address] Yuri Pierre, iDleep 230 [place] [address] 04/04/2025 10:00 AM EST Telemedicine [facility] 505 [place] [address] Azeb Hall, RN 505 [place] [address] documented as of this encounter Goals Goal [...] hypercholesterolemia documented in this encounter Care Teams Health Care Liaison Relationship Specialty Start Date End Date Sariah Vickers ANP 230 [place] [address] PCP - General Family Medicine 09/23/19 Yuri Pierre, PharmD 230 [place] [address] Pharmacist Internal Medicine 05/05/24 Basilio Hall MD [address] [place] [address] Cardiology 05/17/24 01/10/25 Ron Preciado MD 5 [place] [address] Pulmonary Disease 05/17/24 Felipe Alanis MD 11 [facility] 3rd [place] [address] Cardiology 01/11/25 Rosemary Moses NP 10 [facility] [address] [place] [address] Urology 01/11/25 Umm [place] 11 [facility] 3rd [place] [address] Gastroenterology 01/11/25 documented as of this encounter
--- OUTSIDE RECORDS SUMMARY | 2025-01-19 14:03 | XMS_ITS | Encounter Summary ---
Author Organization [employer] Address 75 [facility] 7t [place] [address] Care Team Providers Care First Responder Name Role Phone Sariah Vickers Primary Care Provider [phone] Yuri Pierre PharmD Unavailable Basilio Hall MD Unavailable [phone] Ron Preciado MD Unavailable [phone] Felipe Alanis MD Unavailable Rosemary Moses NP Unavailable May Unavailable Reason for Visit * Reason Onset Date Comments Nurse Triage 01/14/2023 Encounter Details Date Type Department Care Team (Late st Contact Info) Description 01/14/2023 Telephone [facility] 230 [place] [address] Sariah Vickers ANP 230 [place] [address] Nurse Triage Social History Tobacco Use Types [...] the past 12 months, has t he [employer], gas, oil or water [employer] threatened to shut off services in your [...] 01/14/2023 9:26 AM EST Called pt. Via [employer] registered client associate [id number] Kelly. Pt. States that she has been having a fire feeling in her legs. Its like A burning that goes down her legs . Pt. Unsure if it because of her Diabetes. Pt. Went to [facility] for pain on her left side [...] at 10am. Will send note to clinical long term care social worker to have note put in chart . Care Advice Discussed: * Reassurance and Education - Leg Pain * Pain Medicines * Reassurance and Education - Muscle Strain * Reassurance and Education - Overuse * Telephone Encounter - Alaina Rk - 01/14/2023 8:47 AM EST Symptom: Leg Pain - Not From Injury Outcome: Schedule an urgent appointment (within 1 hour) or talk to a nurse or provider soon Reason: Severe pain now, pt was seen [place] [facility] [place] 01/13 for pain in leg. Pt is still symptomatic The caller accepted this outcome Please contact pt at [phone] (cork insulator needed) documented in this encounter Plan of Treatment Upcoming Encounters Date Type Department Care Team (Late st Contact Info) Description 01/19/2025 2:20 PM EST Office Visit [facility] [address] [place] [address] 02/03/2025 11:00 AM EST Medication Management [facility] 230 [place] [address] Yuri Pierre, MikeD 230 [place] [address] 04/04/2025 10:00 AM EST Telemedicine [facility] 505 [place] [address] Azeb Hall, RN 505 [place] [address] documented as of this encounter Goals Goal [...] filedocumented in this encounter Care Teams First Responder Relationship Specialty Start Date End Date Sariah Vickers ANP 230 [place] [address] PCP - General Family Medicine 09/23/19 Yuri Pierre, MikeD 230 [place] [address] Pharmacist Internal Medicine 05/05/24 Basilio Hall MD [address] [place] [address] Cardiology 05/17/24 01/10/25 Ron Preciado MD 5 [place] [address] Pulmonary Disease 05/17/24 Felipe Alanis MD [address] 3rd [place] [address] Cardiology 01/11/25 Rosemary Moses NP [address] [place] [address] Urology 01/11/25 Umm Ellsworth [address] 3rd [place] [address] Gastroenterology 01/11/25 documented as of this encounter
--- OUTSIDE RECORDS SUMMARY | 2025-01-19 14:03 | XMS_ITS | Encounter Summary ---
Author Organization [employer] Address 75 [facility] 7t [place] [address] Care Team Providers Care Architecture Department Chair Name Role Phone Anthony Ruiz Primary Care Provider [phone] Yuri Pierre PharmD Unavailable [phone] Basilio Hall MD Unavailable Ron Preciado MD Unavailable [phone] Felipe Alanis MD Unavailable Rosemary Moses NP Unavailable May Unavailable Encounter Details Date Type Department Care Team (Late st Contact Info) Description 09/28/[address] [facility] 230 [place], [place] [phone] Anthony Ruiz ANP 230 [place], [place] [phone] Social History Tobacco Use Types Packs/Day Years [...] [facility] [address] [place] [address] 02/03/2025 11:00 AM EST Medication Management [facility] 230 [place] [address] Yuri Pierre, PharmD 230 [place] [address] 04/04/2025 10:[address] [facility] 505 [place] [address] Azeb Hall, RN 505 [place] [address] documented as of this encounter Goals Goal [...] PM EDT Narrative 10/09/2024 1:20 PM EDT [place] [address] [address] Scan Report Signed Patient: Nuvia Fay MR #: [id number] : 1960 Acct:[id number] Age/Sex: 64 / F ADM Date: 10/08/24 Loc: HO.CT Attending Dr: Ron Preciado MD Ordering Physician: Ron Preciado MD Date of Service: 10/08/24 Procedure(s): CT lung screening Accession Number(s): [id number] cc: Ron Preciado MD; ANTHONY RUIZ NP Report Number: [id number]: Total DLP = 64.00 mGy-cm CLINICAL HISTORY: [...] 10/09/24 1319 DD/ 1318 TD/TT: 10/09/24 1318 Photographic Printer: Procedure Note Donotuseinterpreter, Image - 10/09/[address] [address] [address] Scan Report Signed Patient: Nuvia Fay EMR #: [id number] : [id number] Age/Sex: 64 / FADM Date: 10/08/24 Loc: .CT Attending Dr: Ron Preciado MD Ordering Physician: Ron Preciado MD Date of Service: 10/08/24 Procedure(s): CT lung screening Accession Number(s): [id number] cc: Ron Preciado MD; ANTHONY RUIZ NP Report Number: [id number]: Total DLP = 64.00 mGy-cm CLINICAL HISTORY: [...] 10/09/24 1319 DD/ 1318 TD/TT: 10/09/24 1318 Photographic Printer: us [facility] External Provider IMG CT PROCEDURES Edited Result - Final documented in this encounter Visit Diagnoses Not on filedocumented in this encounter Additional Health Concerns Assessment Noted Time PHQ-9 Depression Total Score: 12 024 2:58 PM EDT documented as of this encounter Care Teams Architecture Department Chair Relationship Specialty Start Date End Date Anthony Ruiz ANP 230 [place] [address] PCP - General Family Medicine 09/23/19 Yuri Pierre, MikeD 230 [place] [address] Pharmacist Internal Medicine 05/05/24 Basilio Hall MD 596 [place] [address] Cardiology 05/17/24 01/10/25 Ron Preciado MD 5 [place] [address] Pulmonary Disease 05/17/24 Felipe Alanis MD [address] 3rd [place] [address] Cardiology 01/11/25 Rosemary Moses NP [address] [place] [address] Urology 01/11/[address] 3rd [place] [address] Gastroenterology 01/11/25 documented as of this encounter
--- OUTSIDE RECORDS SUMMARY | 2025-01-19 14:03 | XMS_ITS | Encounter Summary ---
Author Organization [employer] Address 75 [facility] 7t [place] [address] Care Team Providers Care Training And Quality Manager Name Role Phone Sariah Vickers Primary Care Provider Yuri Pierre PharmD Unavailable [phone] Basilio Hall MD Unavailable [phone] Ron Preciado MD Unavailable [phone] Felipe Alanis MD Unavailable Rosemary Moses NP Unavailable May Unavailable Reason for Visit * Reason Comments Med Refill Encounter Details Date Type Department Care Team (Late st Contact Info) Description 02/28/2023 Refill [facility] 230 [place] [address] Sariah Vickers ANP 230 [place] [address] Cervicalgia Social History Tobacco Use Types Packs/Day [...] the past 12 months, has t he [employer], gas, oil or water [employer] threatened to shut off services in your [...] Description 01/19/2025 2:20 PM EST Office Visit [facility] 230 [place] [address] 02/03/2025 11:00 AM EST Medication Management [facility] 230 [place] [address] Yuri Pierre, Dileep 230 [place] [address] 04/04/2025 10:00 AM EST Telemedicine [facility] 505 [place] [address] Azeb Hall, RN 505 [place] [address] documented as of this encounter Goals Goal [...] Cervicalgia documented in this encounter Care Teams Training And Quality Manager Relationship Specialty Start Date End Date Sariah Vickers ANP 230 [place] [address] PCP - General Family Medicine 09/23/19 Yuri Pierre, PharmD 230 [place] [address] Pharmacist Internal Medicine 05/05/24 Basilio Hall MD 596 [place] [address] Cardiology 05/17/24 01/10/25 Ron Preciado MD 5 [place] [address] Pulmonary Disease 05/17/24 Felipe Alanis MD 11 [facility] 3rd [place] [address] Cardiology 01/11/25 Rosemary Moses NP [address] [place] [address] Urology 01/11/25 Jodee Umm 11 [facility] 3rd [place] [address] Gastroenterology 01/11/25 documented as of this encounter
--- OUTSIDE RECORDS SUMMARY | 2025-01-19 14:04 | XMS_ITS | Encounter Summary ---
Author Organization [employer] Address 75 [facility] 7t [place] [address] Care Team Providers Care Internet Marketing Assistant Name Role Phone Sariah Vickers Primary Care Provider Yuri Pierre PharmD Unavailable [phone] Basilio Hall MD Unavailable Ron Preciado MD Unavailable [phone] Felipe Alanis MD Unavailable Rosemary Moses NP Unavailable May Unavailable Reason for Visit * Reason Comments Med Refill Encounter Details Date Type Department Care Team (Late st Contact Info) Description 06/30/2023 Refill [facility] MED[facility] 230 [place] [address] Sariah Vickers ANP 230 [place] [address] Neck pain Social History Tobacco Use Types [...] 01/19/2025 2:20 PM EST Office Visit [facility] 230 [place] [address] 02/03/2025 11:00 AM EST Medication Management [facility] 230 [place] [address] Yuri Pierre, MikeD 230 [place] [address] 04/04/2025 10:00 AM EST Telemedicine [facility] 505 [place] [address] Azeb Hall, MARTIN 505 [place] [address] documented as of this encounter Goals Goal [...] as of this encounter Care Teams Internet Marketing Assistant Relationship Specialty Start Date End Date Sariah Vickers, ANP 230 [place] [address] PCP - General Family Medicine 09/23/19 Yuri Pierre, MikeD [address] [place] [address] Pharmacist Internal Medicine 05/05/24 Basilio Hall MD 596 [place] [address] Cardiology 05/17/24 01/10/25 Ron Preciado MD 5 [place] [address] Pulmonary Disease 05/17/24 Felipe Alanis MD [address] [facility] 3rd [place] [address] Cardiology 01/11/25 Rosemary Moses NP [address] [place] [address] Urology 01/11/25 Jodee May 11 [facility] 3rd [place] [address] Gastroenterology 01/11/25 documented as of this encounter
--- OUTSIDE RECORDS SUMMARY | 2025-01-19 14:04 | XMS_ITS | Encounter Summary ---
Author Organization [employer] Address 75 [facility] 7t [place] [address] Care Team Providers Care Welding 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 Helper Arc Name Role Phone Sariah Vickers Primary Care Provider Yuri Pierre PharmD Unavailable [phone] Basilio Hall MD Unavailable [phone] Ron Preciado MD Unavailable [phone] Felipe Alanis MD Unavailable Rosemary Moses NP Unavailable May Unavailable Reason for Visit * Reason Comments Med Refill Encounter Details Date Type Department Care Team (Late st Contact Info) Description 07/17/2022 Refill [facility] MEDICINE 230 [place] [address] Sariah Vickers ANP 230 [place] [address] Neck pain Social History Tobacco Use Types [...] [facility] [address] [place] [address] 02/03/2025 11:00 AM EST Medication Management [facility] MEDICINE [address] [place] [address] Yuri Pierre, PharmBear [address] [place] [address] 04/04/2025 10:00 AM EST Telemedicine [facility] 505 [place] [address] Azeb Hall, RN 505 [place] [address] documented as of this encounter Visit Diagnoses Diagnosis Neck pain Cervicalgia documented in this encounter Care Teams Welding 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 Helper Arc Relationship Specialty Start Date End Date Sariah Vickers ANP [address] [place] [address] PCP - General Family Medicine 09/23/19 Yuri Pierre, PharmD [address] [place] [address] Pharmacist Internal Medicine 05/05/24 Basilio Hall MD 596 [place] [address] Cardiology 05/17/24 01/10/25 Ron Preciado MD [address] [place] [address] Pulmonary Disease 05/17/24 Felipe Alanis MD [address] 3rd [place] [address] Cardiology 01/11/25 Rosemary Moses NP [address] [place] [address] Urology 01/11/25 Umm Ellsworth [address] 3rd [place] [address] Gastroenterology 01/11/25 documented as of this encounter
--- OUTSIDE RECORDS SUMMARY | 2025-01-19 14:04 | XMS_ITS | Encounter Summary ---
Author Organization [employer] Address 75 [facility] 7t [place] [address] Care Team Providers Care Liquor Maker Name Role Phone Sariah Vickers Primary Care Provider [phone] Yuri Pierre PharmD Unavailable Basilio aHll MD Unavailable [phone] Ron Preciado MD Unavailable [phone] Felipe Alanis MD Unavailable Rosemary Moses NP Unavailable May Unavailable Reason for Visit * Reason Comments Med Refill Encounter Details Date Type Department Care Team (Late st Contact Info) Description 07/10/2023 Refill [facility] 230 [place] [address] Sariah Vickers ANP 230 [place] [address] Chronic SI joint pain Social History Tobacco [...] Description 01/19/2025 2:20 PM EST Office Visit [facility] 230 [place] [address] 02/03/2025 11:00 AM EST Medication Management [facility] 230 [place] [address] Yuri Pierre, PharmD 230 [place] [address] 04/04/2025 10:00 AM EST Telemedicine [facility] 505 [place] [address] Azeb Hall, MARTIN 505 [place] [address] documented as of this encounter Goals Goal [...] End Date Sariah Vickers ANP 230 [place] [address] PCP - General Family Medicine 09/23/19 Yuri Pierre, MikeD 230 [place] [address] Pharmacist Internal Medicine 05/05/24 Basilio Hall MD 596 [place] [address] Cardiology 05/17/24 01/10/25 Ron Preciado MD [address] [place] [address] Pulmonary Disease 05/17/24 Felipe Alanis MD 11 [facility] 3rd [place] [address] Cardiology 01/11/25 Rosemary Moses NP [address] [place] [address] Urology 01/11/25 Umm Ellsworth 11 [facility] 3rd [place] [address] Gastroenterology 01/11/25 documented as of this encounter
--- OUTSIDE RECORDS SUMMARY | 2025-01-19 14:04 | XMS_ITS | Encounter Summary ---
Author Organization [employer] Address 75 [facility] 7t [place] [address] Care Team Providers Care Building Architect Name Role Phone Sariah Vickers Primary Care Provider Yuri Pierre PharmD Unavailable [phone] Basilio Hall MD Unavailable [phone] Ron Preciado MD Unavailable [phone] Felipe Alanis MD Unavailable Rosemary Moses NP Unavailable May Unavailable Reason for Visit * Reason Comments Med Refill Encounter Details Date Type Department Care Team (Late st Contact Info) Description 08/14/2022 Refill [facility] MED & PEDS [address] [place] [address] Sariah Vickers ANP 230 [place] [address] Severe persistent asthma without complication Social History [...] 2:20 PM EST Office Visit [facility] [address] [place] [address] 02/03/2025 11:00 AM EST Medication Management [facility] MEDICINE [address] [place] [address] Yuri Pierre, Dileep [address] [place] [address] 04/04/2025 10:00 AM EST Telemedicine [facility] MED [facility] PEDS 505 [place] [address] Azeb Hall, RN 505 [place] [address] documented as of this encounter Visit Diagnoses Diagnosis Severe persistent asthma without complication (HCC) documented in this encounter Care Teams Building Architect Relationship Specialty Start Date End Date Sariah Vickers ANP [address] [place] [address] PCP - General Family Medicine 09/23/19 Yuri Pierre, PharmD [address] [place] [address] Pharmacist Internal Medicine 05/05/24 Basilio Hall MD [address] [place] [address] Cardiology 05/17/24 01/10/25 Ron Preciado MD [address] [place] [address] Pulmonary Disease 05/17/24 Felipe Alanis MD [address] 3rd [place] [address] Cardiology 01/11/25 Rosemary Moses NP [address] [place] [address] Urology 01/11/25 Jodee May [address] 3rd [place] [address] Gastroenterology 01/11/25 documented as of this encounter
--- OUTSIDE RECORDS SUMMARY | 2025-01-19 14:04 | XMS_ITS | Encounter Summary ---
Author Organization [employer] Address 75 [facility] 7t [place] [address] Care Team Providers Care Animal Physiology Teacher Name Role Phone Sariah Vickers Primary Care Provider [phone] Yuri Pierre PharmD Unavailable [phone] Basilio Hall MD Unavailable [phone] Ron Preciado MD Unavailable [phone] Felipe Alanis MD Unavailable [phone] Rosemary Moses NP Unavailable May Unavailable Reason for Visit * Reason Comments Med Refill Encounter Details Date Type Department Care Team (Late st Contact Info) Description 07/12/2022 Refill [facility] MEDICINE 230 [place], [place] [phone] Sariah Vickers ANP 230 [place] [address] Social History Tobacco Use Types Packs/Day Years [...] Description 01/19/2025 2:20 PM EST Office Visit [facility] [address] [place] [address] 02/03/2025 11:00 AM EST Medication Management [facility] MEDICINE [address] [place] [address] Yuri Pierre, PharmBear [address] [place] [address] 04/04/2025 10:00 AM EST Telemedicine [facility] MED & PEDS 505 [place] [address] Azeb Hall, MARTIN 505 [place] [address] documented as of this encounter Visit Diagnoses Not on filedocumented in this encounter Care Teams Animal Physiology Teacher Relationship Specialty Start Date End Date Sariah Vickers ANP [address] [place] [address] PCP - General Family Medicine 09/23/19 Yuri Pierre, PharmD [address] [place] [address] Pharmacist Internal Medicine 05/05/24 Basilio Hall MD 596 [place] [address] Cardiology 05/17/24 01/10/25 Ron Preciado MD [address] [place] [address] Pulmonary Disease 05/17/24 Felipe Alanis MD [address] 3rd [place] [address] Cardiology 01/11/25 Rosemary Moses NP [address] [place] [address] Urology 01/11/25 [address]odee Umm [address] 3rd [place] [address] Gastroenterology 01/11/25 documented as of this encounter
--- OUTSIDE RECORDS SUMMARY | 2025-01-19 14:04 | XMS_ITS | Encounter Summary ---
Author Organization [employer] Address 75 [facility] 7t [place] [address] Care Team Providers Care Meat Soaker Name Role Phone Sariah Vickers Primary Care Provider Yuri Pierre PharmD Unavailable Basilio Hall MD Unavailable Ron Preciado MD Unavailable [phone] Feliep Alanis MD Unavailable Rosemary Moses NP Unavailable May Unavailable Reason for Visit * Reason Onset Date Comments Med Refill Durable Medical Equipment 07/15/2023 Foam M attress/Raised Toilet Seat Encounter Details Date Type Department Care Team (Late st Contact Info) Description 07/15/2023 Refill [facility] MEDICINE 230 [place], [place] [phone] Sariah Vickers ANP 230 [place] [address] Neck pain Social History Tobacco Use Types [...] Please see request sent via email by [facility] Area Operations Director Arlin Baker. Please Advise. Good morning, Our [...] Upcoming Encounters Date Type Department Care Team (Fish tidwell Contact Info) Description 01/19/2025 2:20 PM EST Office Visit [facility] 230 [place], [place] [phone] 02/03/2025 11:00 AM EST Medication Management [facility] MEDICINE 230 [place], [place] [phone] Yuri Pierre, PharmD 230 [place], [place] 04/04/2025 10:00 AM EST Telemedicine [facility] MED & PEDS 505 [place], [place] [phone] Azeb Hall, RN 505 [place], [place] documented as of this encounter Goals [...] documented as of this encounter Care Teams Meat Soaker Relationship Specialty Start Date End Date Sariah Vickers ANP [address] [place] [address] PCP - General Family Medicine 09/23/19 Yuri Pierre, PharmD [address] [place] [address] Pharmacist Internal Medicine 05/05/24 Basilio Hall MD [address] [place] [address] Cardiology 05/17/24 01/10/25 Ron Preciado MD [address] [place] [address] Pulmonary Disease 05/17/24 Felipe Alanis MD [address] 3rd [place] [address] Cardiology 01/11/25 Rosemary Moses NP [address] [place] [address] Urology 01/11/25 Jodee Umm [address] 3rd [place] [address] Gastroenterology 01/11/25 documented as of this encounter
== END 2025-01-19 11:34 | disposition home or self-care (01) ==
LOC: HO.HMGAL 11:33
PROVIDERS: PCP Nurse Practitioner Primary Care; Visit Provider Registered Nurse Emergency
DX: J30.89 Other allergic rhinitis (principal)
CPT/HCPCS: 95117; 95165

== ENCOUNTER 2025-01-19 12:24 | Outpatient (REF) | payer OTHER, SELFPAY | END 2025-01-19 12:25 | disposition home or self-care (01) | LOC: HO.HHCLNP 12:24 | PROVIDERS: Visit Provider Emergency Medicine | DX: L02.415 Cutaneous abscess of right lower limb (principal) | CPT/HCPCS: 87070; 87077; 87186; 87205 ==

== ENCOUNTER 2025-02-02 12:37 | Outpatient (AMB) | payer OTHER, SELFPAY ==
--- OUTSIDE RECORDS SUMMARY | 2025-02-02 16:34 | XMS_ITS | Encounter Summary ---
Author Organization [employer] Address 75 [facility] 7t [place] [address] Care Team Providers Care Lead Generation Specialist Name Role Phone Sariah Vickers KAYLEE Primary Care Provider Yuri Pierre PharmD Unavailable [phone] Basilio Hall MD Unavailable [phone] Ron Preciado MD Unavailable [phone] Felipe Alanis MD Unavailable Rosemary Moses NP Unavailable EllsworthMay Unavailable Encounter Details Date Type Department Care Team (Latest Contact Info) Description 05/15/2018 Abstract [facility] CONVERSIONS Dental, Provider, DDS [...] Care Team (Late st Contact Info) Description 02/03/2025 11:00 AM EST Medication Management [facility] MEDICINE 230 [place], [place] [phone] Yuri Pierre, PharmD 230 [place], [place] [phone] 04/04/2025 10:00 AM EST Telemedicine [facility] CHC MED & PEDS 505 [place] [address] Azeb Hall, RN 505 [place] [address] 05/10/2025 1:00 PM EDT Office Visit [facility] MEDICINE 230 [place] [address] Sariah Vickers ANP 230 [place] [address] documented as of this encounter Visit Diagnoses Not on filedocumented in this encounter Care Teams Lead Generation Specialist Relationship Specialty Start Date End Date Sariah Vickers ANP 230 [place] [address] PCP - General Family Medicine 09/23/19 Yuri Pierre, MikeD [address] [place] [address] Pharmacist Internal Medicine 05/05/24 Basilio Hall MD [address] [place] [address] Cardiology 05/17/24 01/10/25 Ron Preciado MD 5 [place] [address] Pulmonary Disease 05/17/24 Felipe Alanis MD [address] [place] [address] Cardiology 01/11/25 Rosemary Moses NP [address] [place] [address] Urology 01/11/25 Jodee Umm [address]rd [place] [address] Gastroenterology 01/11/25 documented as of this encounter
--- OUTSIDE RECORDS SUMMARY | 2025-02-02 16:34 | XMS_ITS | Encounter Summary ---
Author Organization [employer] Address [address] [facility] [address] 7t [place] [address] Care Team Providers Care Chief Supply Chain Officer Name Role Phone Sariah Vickers Primary Care Provider [phone] Yuri Pierre PharmD Unavailable Basilio Hall MD Unavailable Ron Preciado MD Unavailable [phone] Felipe Alanis MD Unavailable [phone] Rosemary Moses NP Unavailable May Unavailable Reason for Visit * Reason Comments Med Refill Encounter Details Date Type Department Care Team (Late st Contact Info) Description 12/02/2024 Refill [facility] CH[facility] MED & PEDS [address] [place], [place] [phone] Sariah Vickers ANP 230 [place] [address] Type 2 diabetes mellitus with diabetic neuropathy, [...] [facility] Contact Info) Description 02/03/2025 11:00 AM EST Medication Management [facility] MEDICINE [address] [place] [address] Yuri Pierre, PharmD 230 [place] [address] 04/04/2025 10:00 AM EST Telemedicine [facility] CHC MED & PEDS 505 [place] [address] Azeb Hall, RN 505 [place] [address] 05/10/2025 1:00 PM EDT Office Visit [facility] MEDICINE [address] [place] [address] Sariah Vickers, ANP 230 [place] [address] documented as of this encounter Goals Goal Patient Goal Type Associated Problems Recent Progress Patient-Stated? Author Blood Pressure < 140/90 Blood Pressure 148/86(2024 2:55 PM EST) No Aida Ragland, PharmD Record [...] documented as of this encounter Care Teams Chief Supply Chain Officer Relationship Specialty Start Date End Date Sariah Vickers ANP 230 [place] [address] PCP - General Family Medicine 09/23/19 Yuri Pierre, MikeD [address] [place] [address] Pharmacist Internal Medicine 05/05/24 Basilio Hall MD 596 [place] [address] Cardiology 05/17/24 01/10/25 Ron Preciado MD 5 [place] [address] Pulmonary Disease 05/17/24 Felipe Alanis MD [address] 3rd [place] [address] Cardiology 01/11/25 Rosemary Moses NP [address] [place] [address] Urology 01/11/25 Jodee, May [address] [place] [address] 3rd [place] [address] Gastroenterology 01/11/25 documented as of this encounter
--- OUTSIDE RECORDS SUMMARY | 2025-02-02 16:34 | XMS_ITS | Encounter Summary ---
Author Organization [employer] Address 75 [facility] 7t [place] [address] Care Team Providers Care Cash Sales Audit Clerk Name Role Phone Sariah Vickers Primary Care Provider Yuri Pierre PharmD Unavailable Basilio Hall MD Unavailable Ron Preciado MD Unavailable [phone] Felipe Alanis MD Unavailable Rosemary Moses NP Unavailable May Unavailable Reason for Visit * Reason Comments Med Refill Encounter Details Date Type Department Care Team (Late st Contact Info) Description 12/07/2024 Refill [facility] 230 [place] [address] Sariah Vickers ANP 230 [place] [address] Social History Tobacco Use Types Packs/Day Years [...] Description 02/03/2025 11:00 AM EST Medication Management [facility] MEDICINE [address] [place] [address] Yuri Pierre, PharmD 230 [place] [address] 04/04/2025 10:00 AM EST Telemedicine [facility] MED & PEDS 505 [place] [address] Azeb Hall, RN 505 [place] [address] 05/10/2025 1:00 PM EDT Office Visit [facility] MEDICINE [address] [place] [address] Sariah Vickers, ANP 230 [place] [address] documented as of this encounter Goals Goal [...] as of this encounter Care Teams Cash Sales Audit Clerk Relationship Specialty Start Date End Date Sariah Vickers ANP 230 [place] [address] PCP - General Family Medicine 09/23/19 uYri Pierre, MikeD [address] [place] [address] Pharmacist Internal Medicine 05/05/24 Basilio Hall MD 596 [place] [address] Cardiology 05/17/24 01/10/25 Ron Preciado MD 5 [place] [address] Pulmonary Disease 05/17/24 Felipe Alanis MD [address] [place] [address] Cardiology 01/11/25 Rosemary Moses NP [address] [place] [address] Urology 01/11/25 Jodee Umm [address] [place] [address] Gastroenterology 01/11/25 documented as of this encounter
--- OUTSIDE RECORDS SUMMARY | 2025-02-02 16:34 | XMS_ITS | Encounter Summary ---
Author Organization [employer] Address 75 [facility] 7t [place] [address] Care Team Providers Care Fur Scraper Name Role Phone Sariah Vickers KAYLEE Primary Care Provider [phone] Yuri Pierre PharmD Unavailable Basilio Hall MD Unavailable Ron Preciado MD Unavailable [phone] Felipe Alanis MD Unavailable [phone] Rosemray Moses NP Unavailable EllsworthMay Unavailable Encounter Details Date Type Department Care Team (Latest Contact Info) Description 06/20/2021 Abstract [facility] CONVERSIONS Dental, Provider, DDS Social History [...] Description 02/03/2025 11:00 AM EST Medication Management [facility] MEDICINE 230 [place], [place] [phone] Yuri Peirre, PharmD 230 [place], [place] [phone] 04/04/2025 10:00 AM EST Telemedicine [facility] CHC MED & PEDS 505 [place] [address] Azeb Hall, RN 505 [place] [address] 05/10/2025 1:00 PM EDT Office Visit [facility] MEDICINE 230 [place] [address] Sariah Vickers ANP 230 [place] [address] documented as of this encounter Visit Diagnoses Not on filedocumented in this encounter Care Teams Fur Scraper Relationship Specialty Start Date End Date Sariah Vickers ANP 230 [place] [address] PCP - General Family Medicine 09/23/19 Yuri Pierre, MikeD [address] [place] [address] Pharmacist Internal Medicine 05/05/24 Basilio Hall MD 596 [place] [address] Cardiology 05/17/24 01/10/25 Ron Preciado MD 5 [place] [address] Pulmonary Disease 05/17/24 Felipe Alanis MD [address] [place] [address] Cardiology 01/11/25 Rosemary Moses NP [address] [place] [address] Urology 01/11/25 Jodee Umm [address] [place] [address] Gastroenterology 01/11/25 documented as of this encounter
--- OUTSIDE RECORDS SUMMARY | 2025-02-02 16:34 | XMS_ITS | Encounter Summary ---
Author Organization [employer] Address 75 [facility] 7t [place] [address] Care Team Providers Care Media Center Director School Name Role Phone Sariah Vickers Primary Care Provider [phone] Yuri Pierre PharmD Unavailable Basilio Hall MD Unavailable Ron Preciado MD Unavailable [phone] Felipe Alanis MD Unavailable Rosemary Moses NP Unavailable May Unavailable Reason for Visit * Reason Comments Med Refill Encounter Details Date Type Department Care Team (Late st Contact Info) Description 08/22/2023 Refill [facility] MEDICINE 230 [place] [address] Sariah Vickers ANP 230 [place] [address] Neck pain Social History Tobacco Use Types [...] Description 02/03/2025 11:00 AM EST Medication Management [facility] MEDICINE [address] [place] [address] Yuri Pierre, PharmD 230 [place] [address] 04/04/2025 10:00 AM EST Telemedicine [facility] CHC MED & PEDS 505 [place] [address] Azeb Hall, RN 505 [place] [address] 05/10/2025 1:00 PM EDT Office Visit [facility] MEDICINE [address] [place] [address] Sariah Vickers, KAYLEE 230 [place] [address] documented as of this encounter Goals Goal Patient Goal Type Associated Problems Recent Progress Patient-Stated? Author Blood Pressure < 140/90 Blood Pressure 148/86(2024 2:55 PM EST) No Aida Ragland PharmBear Record [...] as of this encounter Care Teams Media Center Director School Relationship Specialty Start Date End Date Sariah Vickers ANP 230 [place] [address] PCP - General Family Medicine 09/23/19 Yuri Pierre, MikeD [address] [place] [address] Pharmacist Internal Medicine 05/05/24 Basilio Hall MD 596 [place] [address] Cardiology 05/17/24 01/10/25 Ron Preciado MD 5 [place] [address] Pulmonary Disease 05/17/24 Felipe Alanis MD [address] [place] [address] Cardiology 01/11/25 Rosemary Moses NP [address] [place] [address] Urology 01/11/25 Umm Ellsworth [address] [place] [address] Gastroenterology 01/11/25 documented as of this encounter
--- OUTSIDE RECORDS SUMMARY | 2025-02-02 16:34 | XMS_ITS | Encounter Summary ---
Author Organization [employer] Address 75 [facility] 7t [place] [address] Care Team Providers Care Masking Machine Feeder Name Role Phone Sariah Vickers KAYLEE Primary Care Provider [phone] Yuri Pierre PharmD Unavailable Basilio Hall MD Unavailable [phone] Ron Preciado MD Unavailable [phone] Felipe Alanis MD Unavailable Rosemary Moses NP Unavailable EllsworthMay Unavailable Encounter Details Date Type Department Care Team (Latest Contact Info) Description 04/14/2020 Abstract [facility] CONVERSIONS Dental, [...] Description 02/03/2025 11:00 AM EST Medication Management [facility] MEDICINE 230 [place], [place] [phone] Yuri Pierre, PharmD 230 [place], [place] [phone] 04/04/2025 10:00 AM EST Telemedicine [facility] CHC MED & PEDS 505 [place] [address] Azeb Hall, RN 505 [place] [address] 05/10/2025 1:00 PM EDT Office Visit [facility] MEDICINE 230 [place] [address] Sariah Vickers ANP 230 [place] [address] documented as of this encounter Visit Diagnoses Not on filedocumented in this encounter Care Teams Masking Machine Feeder Relationship Specialty Start Date End Date Sariah Vickers ANP 230 [place] [address] PCP - General Family Medicine 09/23/19 Yuri iPerre, MikeD [address] [place] [address] Pharmacist Internal Medicine 05/05/24 Basilio Hall MD 596 [place] [address] Cardiology 05/17/24 01/10/25 Ron Preciado MD 5 [place] [address] Pulmonary Disease 05/17/24 Felipe Alanis MD [address] [place] [address] Cardiology 01/11/25 Rosemary Moses NP [address] [place] [address] Urology 01/11/25 Jodee Umm [address] [place] [address] Gastroenterology 01/11/25 documented as of this encounter
--- OUTSIDE RECORDS SUMMARY | 2025-02-02 16:34 | XMS_ITS | Encounter Summary ---
Author Organization [employer] Address 75 [facility] 7t [place] [address] Care Team Providers Care Addictions Counselor Assistant Name Role Phone Sariah Vickers Primary Care Provider [phone] Yuri Pierre PharmD Unavailable Basilio Hall MD Unavailable Ron Preciado MD Unavailable [phone] Felipe Alanis MD Unavailable Rosemary Moses NP Unavailable May Unavailable Reason for Visit * Reason Comments Med Refill Encounter Details Date Type Department Care Team (Late st Contact Info) Description 09/13/2022 Refill [facility] CHC MED & PEDS [address] [place] [address] Sariah Vickers ANP 230 [place] [address] Severe persistent allergic asthma without complication Social [...] Description 02/03/2025 11:00 AM EST Medication Management [facility] MEDICINE [address] [place] [address] Yuri Pierre, PharmD [address] [place] [address] 04/04/2025 10:00 AM EST Telemedicine [facility] CHC MED & PEDS 505 [place] [address] Azeb Hall, RN 505 [place] [address] 05/10/2025 1:00 PM EDT Office Visit [facility] MEDICINE [address] [place] [address] Sariah Vickers ANP 230 [place] [address] documented as of this encounter Visit Diagnoses Diagnosis Severe persistent allergic asthma without complication (HCC) documented in this encounter Care Teams Addictions Counselor Assistant Relationship Specialty Start Date End Date Sariah Vickers ANP [address] [place] [address] PCP - General Family Medicine 09/23/19 Yuri Pierre, PharmD [address] [place] [address] Pharmacist Internal Medicine 05/05/24 Basilio Hall MD [address] [place] [address] Cardiology 05/17/24 01/10/25 Ron Preciado MD [address] [place] [address] Pulmonary Disease 05/17/24 Felipe Alanis MD [address] 3rd [place] [address] Cardiology 01/11/25 Rosemary Moses NP [address] [place] [address] Urology 01/11/[address] 3rd [place] [address] Gastroenterology 01/11/25 documented as of this encounter
--- OUTSIDE RECORDS SUMMARY | 2025-02-02 16:35 | XMS_ITS | Encounter Summary ---
Author Organization [employer] Address 75 [facility] 7t [place] [address] Care Team Providers Care Provider Network Analyst Name Role Phone Sariah Vickers Primary Care Provider Yuri Pierre PharmD Unavailable Basilio Hall MD Unavailable Ron Preciado MD Unavailable [phone] Felipe Alanis MD Unavailable Rosemary Moses NP Unavailable May Unavailable Reason for Visit * Reason Onset Date Comments Nurse Triage 11/01/2022 Encounter Details Date Type Department Care Team (Late st Contact Info) Description 11/01/2022 Telephone [facility] MEDICINE 230 [place] [address] Sariah Vickers ANP 230 [place] [address] Nurse Triage Social History Tobacco Use Types [...] 11/01/2022 3:51 PM EDT Triage call with [employer] [place] [id number] Pt reports blood sugars have been high [...] Description 02/03/2025 11:00 AM EST Medication Management [facility] MEDICINE 230 [place] [address] Yuri Pierre, PharmD 230 [place] [address] 04/04/2025 10:00 AM EST Telemedicine [facility] CHC MED & PEDS [address] [facility] [place] [address] Azeb Hall, RN 505 [place] [address] 05/10/2025 1:00 PM EDT Office Visit [facility] MEDICINE 230 [place] [address] Sariah Vickers ANP 230 [place] [address] documented as of this encounter Goals Goal Patient Goal Type Associated Problems Recent Progress Patient-Stated? Author Blood Pressure < 140/90 Blood Pressure 148/86(2024 2:55 PM EST) No Aida Ragland PharmD Record Your Blood Sugar As Directed General No Aida Ragland PharmD Hemoglobin A1c < 7 Result Component 6.6( 12:59 PM EST) No Aida Ragland PharmD documented as of this encounter Visit Diagnoses Not on filedocumented in this encounter Care Teams Provider Network Analyst Relationship Specialty Start Date End Date Sariah Vickers ANP [address] [place] [address] PCP - General Family Medicine 09/23/19 Yuri Pierre, MikeD [address] [place] [address] Pharmacist Internal Medicine 05/05/24 Basilio Hall MD 596 [place] [address] Cardiology 05/17/24 01/10/25 Ron Preciado MD [address] [place] [address] Pulmonary Disease 05/17/24 Felipe Alanis MD 11 [facility] 3rd [place] [address] Cardiology 01/11/25 Rosemary Moses NP [address] [place] [address] Urology 01/11/25 oJdee Umm [address] 3rd [place] [address] Gastroenterology 01/11/25 documented as of this encounter
--- OUTSIDE RECORDS SUMMARY | 2025-02-02 16:35 | XMS_ITS | Encounter Summary ---
Author Organization [employer] Address [address] [facility] 7t [place] [address] Care Team Providers Care Grinder Outside Diameter Name Role Phone Sariah Vickers Primary Care Provider Yuri Pierre PharmD Unavailable [phone] Basilio Hall MD Unavailable [phone] Ron Preciado MD Unavailable [phone] Felipe Alanis MD Unavailable Rosemary Moses NP Unavailable May Unavailable Encounter Details Date Type Department Care Team (Late st Contact Info) Description 11/23/[address] [facility] MEDICINE 230 [place], [place] [phone] Sariah Vickers ANP 230 [place], [place] [phone] Social History Tobacco Use Types Packs/Day Years [...] the past 12 months, has t he [employer] gas, oil or water company threatened to [...] Description 02/03/2025 11:00 AM EST Medication Management [facility] [address] [place] [address] Yuri Pierre, PharmD 230 [place] [address] 04/04/2025 10:[address] [facility] 505 [place] [address] Azeb Hall, RN 505 [place] [address] 05/10/2025 1:00 PM EDT Office Visit [facility] [address] [place] [address] Sariah Vickers, ANP 230 [place] [address] documented as of this encounter Goals Goal [...] documented as of this encounter Care Teams Grinder Outside Diameter Relationship Specialty Start Date End Date Sariah Vickers ANP [address] [place] [address] PCP - General Family Medicine 09/23/19 Yuri Pierre, MikeD [address] [place] [address] Pharmacist Internal Medicine 05/05/24 Basilio Hall MD [address] [place] [address] Cardiology 05/17/24 01/10/25 Ron Preciado MD 5 [place] [address] Pulmonary Disease 05/17/24 Felipe Alanis MD [address] 3rd [place] [address] Cardiology 01/11/25 Rosemary Moses NP [address] [place] [address] Urology 01/11/25 Jodee May [address] 3rd [place] [address] Gastroenterology 01/11/25 documented as of this encounter
--- OUTSIDE RECORDS SUMMARY | 2025-02-02 16:35 | XMS_ITS | Encounter Summary ---
Author Organization [employer] Address 75 [facility] 7t [place] [address] Care Team Providers Care Residential Leasing Agent Name Role Phone Sariah Vickers KAYLEE Primary Care Provider Yuri Pierre PharmD Unavailable Basilio Hall MD Unavailable Ron Preciado MD Unavailable [phone] Felipe Alanis MD Unavailable Rosemary Moses NP Unavailable EllsworthMay Unavailable Encounter Details Date Type Department Care Team (Late st Contact Info) Description 01/09/[address] [facility] 230 [place] [address] Dental, Provider, DDS Social History Tobacco Use [...] Medication Management [facility] 230 [place] [address] Yuri Pierre, PharmD 230 [place], [place] [phone] 04/04/2025 10:[address] [facility] [address] [place] [address] Azeb Hall, RN [address] [place] [address] 05/10/2025 1:00 PM EDT Office Visit [facility] 230 [place] [address] Sariah Vickers ANP 230 [place] [address] documented as of this encounter Procedures Procedure [...] on filedocumented in this encounter Care Teams Residential Leasing Agent Relationship Specialty Start Date End Date Sariah Vickers ANP 230 [place] [address] PCP - General Family Medicine 09/23/19 Yuri Pierre, PharmD 230 [place] [address] Pharmacist Internal Medicine 05/05/24 Basilio Hall MD 596 [place] [address] Cardiology 05/17/24 01/10/25 Ron Preciado MD 5 [place] [address] Pulmonary Disease 05/17/24 Felipe Alanis MD 11 [facility] 3rd [place] [address] Cardiology 01/11/25 Rosemary Moses NP [facility] [address] [place] [address] Urology 01/11/[address] [facility] 3rd [place] [address] Gastroenterology 01/11/25 documented as of this encounter
--- OUTSIDE RECORDS SUMMARY | 2025-02-02 16:35 | XMS_ITS | Encounter Summary ---
Author Organization [employer] Address 75 [facility] 7t [place] [address] Care Team Providers Care Power Plant Engineer Name Role Phone Sariah Vickers Primary Care Provider [phone] Yuri Pierre PharmD Unavailable Basilio Hall MD Unavailable [phone] Ron Preciado MD Unavailable [phone] Felipe Alanis MD Unavailable Rosemary Moses NP Unavailable May Unavailable Reason for Visit * Reason Comments Med Refill Encounter Details Date Type Department Care Team (Late st Contact Info) Description 02/06/2022 Refill [facility] MED[facility]INE 230 [place] [address] Sariah Vickers ANP 230 [place] [address] Social History Tobacco Use Types Packs/Day Years [...] Upcoming Encounters Date Type Department Care Team ([facility] st Contact Info) Description 02/03/2025 11:00 AM EST Medication Management [facility] MED[facility] [address] [place] [address] Yuri Pierre, PharmD [address] [place] [address] 04/04/2025 10:00 AM EST Telemedicine [facility] 505 [place] [address] Azeb Hall, RN 505 [place] [address] 05/10/2025 1:00 PM EDT Office Visit [facility] MED[facility] [address] [place] [address] Sariah Vickers ANP [address] [place] [address] documented as of this encounter Visit Diagnoses Not on filedocumented in this encounter Care Teams Power Plant Engineer Relationship Specialty Start Date End Date Sariah Vickers ANP [address] [place] [address] PCP - General Family Medicine 09/23/19 Yuri Pierre, PharmD [address] [place] [address] Pharmacist Internal Medicine 05/05/24 Basilio Hall MD [address] [place] [address] Cardiology 05/17/24 01/10/25 Ron Preciado MD [address] [place] [address] Pulmonary Disease 05/17/24 Felipe Alanis MD [address] 3rd [place] [address] Cardiology 01/11/25 Rosemary Moses NP [address] [place] [address] Urology 01/11/25 Jodee May [address] 3rd [place] [address] Gastroenterology 01/11/25 documented as of this encounter
--- OUTSIDE RECORDS SUMMARY | 2025-02-02 16:37 | XMS_ITS | Encounter Summary ---
Author Organization [employer] Address 75 [facility] 7t [place] [address] Care Team Providers Care Search Developer Name Role Phone Sariah Vickers Primary Care Provider Yuri Pierre PharmD Unavailable Basilio Hall MD Unavailable Ron Preciado MD Unavailable Felipe Alanis MD Unavailable [phone] Rosemary Moses NP Unavailable May Unavailable Reason for Visit * Reason Onset Date Comments Durable Medical Equipment 03/15/2022 Encounter Details Date Type Department Care Team (Late st Contact Info) Description 03/15/2022 Telephone [facility] MEDICINE 230 [place] [address] Sariah Vickers ANP 230 [place] [address] Durable Medical Equipment Social History Tobacco Use [...] Description 02/03/2025 11:00 AM EST Medication Management [facility] MEDICINE [address] [place] [address] Yuri Pierre, PharmD [address] [place] [address] 04/04/2025 10:00 AM EST Telemedicine [facility] MED & PEDS 505 [place] [address] Azeb Hall, RN 505 [place] [address] 05/10/2025 1:00 PM EDT Office Visit [facility] MED[facility] [address] [place] [address] Sariah Vickers ANP [address] [place] [address] documented as of this encounter Visit Diagnoses Not on filedocumented in this encounter Care Teams Search Developer Relationship Specialty Start Date End Date Sariah Vickers ANP [address] [place] [address] PCP - General Family Medicine 09/23/19 Yuri Pierre, PharmD 230 [place] [address] Pharmacist Internal Medicine 05/05/24 Basilio Hall MD 596 [place] [address] Cardiology 05/17/24 01/10/25 Ron Preciado MD 5 [place] [address] Pulmonary Disease 05/17/24 Felipe Alanis MD 11 [facility] 3rd [place] [address] Cardiology 01/11/25 Rosemary Moses NP [address] [place] [address] Urology 01/11/25 Jodee May 11 [facility] 3rd [place] [address] Gastroenterology 01/11/25 documented as of this encounter
--- OUTSIDE RECORDS SUMMARY | 2025-02-02 16:37 | XMS_ITS | Encounter Summary ---
Author Organization [employer] Address 75 [facility] 7t [place] [address] Care Team Providers Care Supervisor Garage Name Role Phone Sariah Vickers Primary Care Provider Yuri Pierre PharmD Unavailable [phone] Basilio Hall MD Unavailable Ron Preciado MD Unavailable [phone] Felipe Aalnis MD Unavailable Rosemary Moses NP Unavailable May Unavailable Reason for Visit * Reason Onset Date Comments Med Refill 02/04/2024 Encounter Details Date Type Department Care Team (Late st Contact Info) Description 02/04/2024 Telephone [facility] MEDICINE 230 [place] [address] Sariah Vickers ANP 230 [place] [address] Med Refill Social History Tobacco Use Types [...] 50 MG tablet To be sent to: [facility] - [place], [place] - [address] [place] [address] documented in this encounter Plan of Treatment Upcoming Encounters Date Type Department Care Team ([facility] st Contact Info) Description 02/03/2025 11:00 AM EST Medication Management [facility] MEDICINE 230 [place] [address] Yuri Pierre, PharmD 230 [place] [address] 04/04/2025 10:00 AM EST Telemedicine [facility] CHC MED & PEDS 505 [place] [address] Azeb Hall, RN 505 [place] [address] 05/10/2025 1:00 PM EDT Office Visit [facility] MEDICINE 230 [place] [address] Sariah Vickers ANP 230 [place] [address] documented as of this encounter Goals Goal Patient Goal Type Associated Problems Recent Progress Patient-Stated? Author Blood Pressure < 140/90 Blood Pressure 148/86(2024 2:55 PM EST) No Piers-Gambl eVeronicasa, PharmD Record Your Blood [...] as of this encounter Care Teams Supervisor Garage Relationship Specialty Start Date End Date Sariah Vickers ANP 230 [place] [address] PCP - General Family Medicine 09/23/19 Yuri Pierre, MikeD [address] [place] [address] Pharmacist Internal Medicine 05/05/24 Basilio Hall MD 596 [place] [address] Cardiology 05/17/24 01/10/25 Ron Preciado MD 5 [place] [address] Pulmonary Disease 05/17/24 Felipe Alanis MD 11 [facility] 3rd [place] [address] Cardiology 01/11/25 Rosemary Moses NP [address] [place] [address] Urology 01/11/25 Jodee Umm [address] 3rd Floor [place] [address] Gastroenterology 01/11/25 documented as of this encounter
--- OUTSIDE RECORDS SUMMARY | 2025-02-02 16:37 | XMS_ITS | Encounter Summary ---
Author Organization [employer] Address 75 [facility] 7t [place] [address] Care Team Providers Care Tradeshow Worker Name Role Phone Sariah Vickers Primary Care Provider [phone] Yuri Pierre PharmD Unavailable [phone] Basilio Hall MD Unavailable [phone] Ron Preciado MD Unavailable [phone] Felipe Alanis MD Unavailable Rosemary Moses NP Unavailable May Unavailable Reason for Visit * Reason Comments Med Refill Encounter Details Date Type Department Care Team (Late st Contact Info) Description 03/26/2022 Refill [facility] MEDICINE 230 [place] [address] Sariah Vickers ANP 230 [place] [address] Social History Tobacco Use Types Packs/Day Years [...] ([facility] st Contact Info) Description 02/03/2025 11:00 AM EST Medication Management [facility] MEDICINE [address] [place] [address] Yuri Pierre, PharmD [address] [place] [address] 04/04/2025 10:00 AM EST Telemedicine [facility] MED [facility] PEDS 505 [place] [address] Azeb Hall, RN 505 [place] [address] 05/10/2025 1:00 PM EDT Office Visit [facility] MEDICINE [address] [place] [address] Sariha Vickers ANP [address] [place] [address] documented as of this encounter Visit Diagnoses Not on filedocumented in this encounter Care Teams Tradeshow Worker Relationship Specialty Start Date End Date Sariah Vickers ANP [address] [place] [address] PCP - General Family Medicine 09/23/19 Yuri Pierre, PharmD [address] [place] [address] Pharmacist Internal Medicine 05/05/24 Basilio Hall MD [address] [place] [address] Cardiology 05/17/24 01/10/25 Ron Preciado MD [address] [place] [address] Pulmonary Disease 05/17/24 Felipe Alanis MD [address] 3rd [place] [address] Cardiology 01/11/25 Rosemary Moses NP [address] [place] [address] Urology 01/11/25 Jodee May [address] 3rd [place] [address] Gastroenterology 01/11/25 documented as of this encounter
--- OUTSIDE RECORDS SUMMARY | 2025-02-02 16:37 | XMS_ITS | Encounter Summary ---
Author Organization [employer] Address 75 [facility] 7t [place] [address] Care Team Providers Care Application Engineer Name Role Phone Sariah Vickers Primary Care Provider [phone] Yuri Pierre PharmD Unavailable Ron Preciado MD Unavailable [phone] Felipe Alanis MD Unavailable Rosemary Moses NP Unavailable EllsworthMay Unavailable Reason for Visit * Reason Comments Med Refill Encounter Details Date Type Department Care Team (Late st Contact Info) Description 02/01/2025 Refill [facility] 230 [place], [place] [phone] Sariah Vickers ANP 230 [place] [address] Social History Tobacco Use Types Packs/Day Years [...] the past 12 months, has t he [employer], gas, oil or water company threatened [...] Medication Management [facility] MEDICINE [address] [place] [address] Yuri Pierre, PharmD [address] [place] [address] 04/04/2025 10:00 AM EST Telemedicine [facility] MED & PEDS 505 [place] [address] Azeb Hall, RN 505 [place] [address] 05/10/2025 1:00 PM EDT Office Visit [facility] MED[facility]INE [address] [place] [address] Sariah Vickers, ANP 230 [place] [address] documented as of this encounter Goals Goal Patient Goal Type Associated Problems Recent Progress Patient-Stated? Author Blood Pressure < 140/90 Blood Pressure 148/86(2024 2:55 PM EST) No Aida Corona PharmD Record [...] blood pressure task No zAeb Hall RN Patient has chronic kidney disease [...] Care Plan Weekly blood pressure task No Maddy Garcias Weekly blood pressure task Care Plan Weekly blood pressure task No Maddy Garcias Patient has chronic kidney disease Care Plan Patient has chronic kidney disease No Maddy Garcias Patient has chronic kidney disease Care Plan Patient has chronic kidney disease No Maddy Garcias Weekly blood pressure task Care Plan Weekly blood pressure task No Kenan Clement MA Weekly blood pressure task Care Plan Weekly blood pressure task No Kenan Clement MA Patient has chronic kidney disease Care Plan Patient has chronic kidney disease No Kenan Clement MA Patient has chronic kidney disease Care Plan Patient has chronic kidney disease Kenan Anand MA documented as of this encounter Visit Diagnoses [...] 01/12/2025 Patient has chronic kidney disease 01/12/2025 Weekly blood pressure task 01/19/2025 Weekly blood pressure task 01/19/2025 Patient has chronic kidney disease 01/19/2025 Patient has chronic kidney disease 01/19/2025 Weekly blood pressure task 01/21/2025 Weekly blood pressure task 01/21/2025 Patient has chronic kidney disease 01/21/2025 Patient has chronic kidney disease 01/21/2025 Weekly blood pressure task 02/01/2025 Weekly blood pressure task 02/01/2025 Patient has chronic kidney disease 02/01/2025 Patient has chronic kidney disease 02/01/2025 Assessment Noted Time PHQ-9 Depression Total Score: 14 025 1:03 PM EST documented as of this encounter Care Teams Application Engineer Relationship Specialty Start Date End Date Sariah Vickers ANP 230 [place] [address] PCP - General Family Medicine 09/23/19 Yuri Pierre, MikeD 230 [place] [address] Pharmacist Internal Medicine 05/05/24 Ron Preciado MD 5 [place] [address] Pulmonary Disease 05/17/24 Felipe Alanis MD [address] 3rd [place] [address] Cardiology 01/11/25 Rosemary Moses NP [address] [place] [address] Urology 01/11/25 Jodee Umm [address] 3rd [place] [address] Gastroenterology 01/11/25 documented as of this encounter
--- OUTSIDE RECORDS SUMMARY | 2025-02-02 16:37 | XMS_ITS | Encounter Summary ---
Author Organization [employer] Address 75 [facility] 7t [place] [address] Care Team Providers Care Parts Control Clerk Name Role Phone Sariah Vickers Primary Care Provider [phone] Yuri Pierre PharmD Unavailable Ron Preciado MD Unavailable [phone] Felipe Alanis MD Unavailable [phone] Rosemary Moses NP Unavailable Umm Ellsworth Unavailable Reason for Visit * Reason Onset Date Comments april recall 02/01/2025 Encounter Details Date Type Department Care Team (Late st Contact Info) Description 02/01/2025 Telephone [facility] MEDICINE 230 [place], [place] [phone] Sariah Vickers ANP 230 [place] [address] april recall Social History Tobacco Use Types Packs/Day Years [...] encounter Miscellaneous Notes * Telephone Encounter - Kenan Clement [place] - 02/01/2025 2:57 PM EST Telephone call to patient to schedule the following recall: Visit type: Follow up Appointment notes: Follow up in about 4 months for DM f/u. Patient agree to appointment on 05/10/2025 at 1:00 PM with Alee. documented in this encounter Plan of Treatment Upcoming Encounters Date Type Department Care Team ([facility] st Contact Info) Description 02/03/2025 11:00 AM EST Medication Management [facility] MEDICINE 230 [place] [address] Yuri Pierre, PharmD 230 [place] [address] 04/04/2025 10:00 AM EST Telemedicine [facility] CHC MED & PEDS [address] [place] [address] Azeb Hall RN 505 [place] [address] 05/10/2025 1:00 PM EDT Office Visit [facility] MEDICINE 230 [place] [address] Sariah Vickers ANP 230 [place] [address] documented as of this encounter Goals Goal [...] chronic kidney disease No Kenan Clement [place] documented as of this encounter Visit [...] documented as of this encounter Care Teams Parts Control Clerk Relationship Specialty Start Date End Date Sariah Vickers ANP 230 [place] [address] PCP - General Family Medicine 09/23/19 Yuri Pierre, PharmD 230 [place] [address] Pharmacist Internal Medicine 05/05/24 Ron Preciado MD 5 [place] [address] Pulmonary Disease 05/17/24 Felipe Alanis MD [address] [place] [address] Cardiology 01/11/25 Rosemary Moses NP [address] [place] [address] Urology 01/11/25 Jodee Umm [address]rd [place] [address] Gastroenterology 01/11/25 documented as of this encounter
--- OUTSIDE RECORDS SUMMARY | 2025-02-02 16:37 | XMS_ITS | Encounter Summary ---
Author Organization [employer] Address 75 [facility] 7t [place] [address] Care Team Providers Care Mortar Man Name Role Phone Sariah Vickers Primary Care Provider Yuri Pierre PharmD Unavailable Basilio Hall MD Unavailable Ron Preciado MD Unavailable [phone] Felipe Alanis MD Unavailable Rosemary Moses NP Unavailable May Unavailable Reason for Visit * Reason Onset Date Comments Med Refill 09/18/2023 Encounter Details Date Type Department Care Team (Late st Contact Info) Description 09/18/2023 Telephone [facility] MEDICINE 230 [place], [place] [phone] Sariah Vickers ANP 230 [place] [address] Med Refill Social History Tobacco Use Types [...] : Tramadol To be sent to: [facility] - [place], [place] - [address] [place] [address] documented in this encounter Plan of Treatment Upcoming Encounters Date Type Department Care Team ([facility] st Contact Info) Description 02/03/2025 11:00 AM EST Medication Management [facility] MEDICINE 230 [place] [address] Yuri Pierre, PharmD 230 [place] [address] 04/04/2025 10:00 AM EST Telemedicine [facility] CHC MED & PEDS 505 [place] [address] Azeb Hall, MARTIN 505 [place] [address] 05/10/2025 1:00 PM EDT Office Visit [facility] MEDICINE 230 [place] [address] Sariah Vickers ANP 230 [place] [address] documented as of this encounter Goals Goal Patient Goal Type Associated Problems Recent Progress Patient-Stated? Author Blood Pressure < 140/90 Blood Pressure 148/86(2024 2:55 PM EST) No Piers-Gambl eAida, PharmD Record Your Blood Sugar As Directed General No Piers-Gambl eAida PharmD Hemoglobin A1c < 7 Result Component 6.6( 12:59 PM EST) No Piers-Gambl eVeronicasa, PharmD documented as of this encounter Visit Diagnoses Not on filedocumented in this encounter Additional Health Concerns Assessment Noted Time PHQ-9 Depression Total Score: 2 06/23/19 24 2:10 PM EDT documented as of this encounter Care Teams Mortar Man Relationship Specialty Start Date End Date Sariah Vickers ANP 230 [place] [address] PCP - General Family Medicine 09/23/19 Yuri Pierre, MikeD [address] [place] [address] Pharmacist Internal Medicine 05/05/24 Basilio Hall MD 5[address] [place] [address] Cardiology 05/17/24 01/10/25 Ron Preciado MD [address] [place] [address] Pulmonary Disease 05/17/24 Felipe Alanis MD 11 [facility] 3rd [place] [address] Cardiology 01/11/25 Rosemary Moses NP [address] [place] [address] Urology 01/11/25 Jodee Umm [address] 3rd [place] [address] Gastroenterology 01/11/25 documented as of this encounter
--- OUTSIDE RECORDS SUMMARY | 2025-02-02 16:37 | XMS_ITS | Encounter Summary ---
Author Organization [employer] Address 75 [facility] 7t [place] [address] Care Team Providers Care Product Handler Name Role Phone Sariah Vickers Primary Care Provider Yuri Pierre PharmD Unavailable Basilio Hall MD Unavailable [phone] Ron Preciado MD Unavailable [phone] Felipe Alanis MD Unavailable [phone] Rosemary Moses NP Unavailable May Unavailable Reason for Visit * Reason Comments Med Refill Encounter Details Date Type Department Care Team (Late st Contact Info) Description 12/12/2024 Refill [facility] [address] [place] [address] Sariah Vickers ANP 230 [place] [address] Cervicalgia Social History Tobacco Use Types Packs/Day [...] Of [place] st Contact Info) Description 02/03/2025 11:00 AM EST Medication Management [facility] [address] [place] [address] Yuri Pierre, PharmD [address] [place] [address] 04/04/2025 10:00 AM EST Telemedicine [facility] 505 [place] [address] Azeb Hall, RN 505 [place] [address] 05/10/2025 1:00 PM EDT Office Visit [facility] [address] [place] [address] Sariah Vickers, ANP [address] [place] [address] documented as of this encounter Goals Goal [...] as of this encounter Care Teams Product Handler Relationship Specialty Start Date End Date Sariah Vickers ANP [address] [place] [address] PCP - General Family Medicine 09/23/19 Yuri Pierre, MikeD [address] [place] [address] Pharmacist Internal Medicine 05/05/24 Basilio Hall MD 5[address] [place] [address] Cardiology 05/17/24 01/10/25 Ron Preciado MD 5 [place] [address] Pulmonary Disease 05/17/24 Felipe Alanis MD [address] [place] [address] Cardiology 01/11/25 Rosemary Moses NP [address] [place] [address] Urology 01/11/25 Jodee Umm [address] [place] [address] Gastroenterology 01/11/25 documented as of this encounter
--- OUTSIDE RECORDS SUMMARY | 2025-02-02 16:37 | XMS_ITS | Encounter Summary ---
Author Organization [employer] Address 75 [facility] 7t [place] [address] Care Team Providers Care Tire Beader Maker Name Role Phone Sariah Vickers Primary Care Provider [phone] Yuri Pierre PharmD Unavailable Basilio Hall MD Unavailable Ron Preciado MD Unavailable [phone] Felipe Alanis MD Unavailable Rosemary Moses NP Unavailable May Unavailable Reason for Visit * Reason Comments Med Refill Encounter Details Date Type Department Care Team (Late st Contact Info) Description 03/09/2024 Refill [facility] [address] [place] [address] Sariah Vickers ANP 230 [place] [address] Neck pain Social History Tobacco Use Types [...] Description 02/03/2025 11:00 AM EST Medication Management [facility] [address] [place] [address] Yuri Pierre, PharmD 230 [place] [address] 04/04/2025 10:00 AM EST Telemedicine [facility] 505 [place] [address] Azeb Hall, RN 505 [place] [address] 05/10/2025 1:00 PM EDT Office Visit [facility] [address] [place] [address] Sariah Vickers, ANP 230 [place] [address] documented as of this encounter Goals Goal [...] as of this encounter Care Teams Tire Beader Maker Relationship Specialty Start Date End Date Sariah Vickers ANP 230 [place] [address] PCP - General Family Medicine 09/23/19 Yuri Pierre PharmD [address] [place] [address] Pharmacist Internal Medicine 05/05/24 Basilio Hall MD 596 [place] [address] Cardiology 05/17/24 01/10/25 Ron Preciado MD 5 [place] [address] Pulmonary Disease 05/17/24 Felipe Alanis MD [address] 3rd [place] [address] Cardiology 01/11/25 Rosemary Moses NP [address] [place] [address] Urology 01/11/25 Jodee Umm [address] [place] [address] Gastroenterology 01/11/25 documented as of this encounter
--- OUTSIDE RECORDS SUMMARY | 2025-02-02 16:37 | XMS_ITS | Encounter Summary ---
Author Organization [employer] Address 75 [facility] 7t [place] [address] Care Team Providers Care Oil Change Technician Name Role Phone Sariah Vickers Primary Care Provider Yuri Pierre PharmD Unavailable Basilio Hall MD Unavailable Ron Preciado MD Unavailable [phone] Felipe Alanis MD Unavailable Rosemary Moses NP Unavailable May Unavailable Encounter Details Date Type Department Care Team (Late st Contact Info) Description 02/05/2022 Abstract [facility] 230 [place], [place] [phone] Sariah Vickers ANP 230 [place] [address] Social History Tobacco Use Types Packs/Day Years [...] Description 02/03/2025 11:00 AM EST Medication Management [facility] [address] [place] [address] Yuri Pierre PharmD [address] [place] [address] 04/04/2025 10:00 AM EST Telemedicine [facility] 505 [place] [address] Azeb Hall, MARTIN 505 [place], [place] 05/10/2025 1:00 PM EDT Office Visit [facility] [address] [place] [address] Sariah Vickers ANP [address] [place] [address] documented as of this encounter Visit Diagnoses Not on filedocumented in this encounter Care Teams Oil Change Technician Relationship Specialty Start Date End Date Sariah Vickers ANP [address] [place] [address] PCP - General Family Medicine 09/23/19 Yuri Pierre, MikeD [address] [place] [address] Pharmacist Internal Medicine 05/05/24 Basilio Hall MD 596 [place] [address] Cardiology 05/17/24 01/10/25 Ron Preciado MD 5 [place] [address] Pulmonary Disease 05/17/24 Felipe Alanis MD [address] [facility] 3rd [place] [address] Cardiology 01/11/25 Rosemary Moses NP [address] [facility] [address] [place] [address] Urology 01/11/25 Umm Ellsworth [address] [facility] 3rd [place] [address] Gastroenterology 01/11/25 documented as of this encounter
--- OUTSIDE RECORDS SUMMARY | 2025-02-02 16:37 | XMS_ITS | Encounter Summary ---
Author Organization [employer] Address 75 [facility] 7t [place] [address] Care Team Providers Care Director Of Clinical Trials Name Role Phone Sariah Vickers Primary Care Provider [phone] Yuri Pierre PharmD Unavailable Basilio Hall MD Unavailable [phone] Ron Preciado MD Unavailable [phone] Felipe Alanis MD Unavailable Rosemary Moses NP Unavailable May Unavailable Reason for Visit * Reason Comments Med Refill Encounter Details Date Type Department Care Team (Late st Contact Info) Description 03/03/2022 Refill [facility] 230 [place] [address] Sariah Vickers ANP 230 [place] [address] Social History Tobacco Use Types Packs/Day Years [...] Description 02/03/2025 11:00 AM EST Medication Management [facility] [address] [place] [address] Yuri Pierre, Dileep [address] [place] [address] 04/04/2025 10:00 AM EST Telemedicine [facility] 505 [place] [address] Azeb Hall, RN 505 [place] [address] 05/10/2025 1:00 PM EDT Office Visit [facility] [address] [place] [address] Sariah Vickers ANP [address] [place] [address] documented as of this encounter Visit Diagnoses Not on filedocumented in this encounter Care Teams Director Of Clinical Trials Relationship Specialty Start Date End Date Sariah Vickers ANP [address] [place] [address] PCP - General Family Medicine 09/23/19 Yuri Pierre, PharmD [address] [place] [address] Pharmacist Internal Medicine 05/05/24 Basilio Hall MD 596 [place] [address] Cardiology 05/17/24 01/10/25 Ron Preciado MD 5 [place] [address] Pulmonary Disease 05/17/24 Felipe Alanis MD [address] 3rd [place] [address] Cardiology 01/11/25 Rosemary Moses NP [address] [place] [address] Urology 01/11/25 Jodee May [facility] 3rd [place] [address] Gastroenterology 01/11/25 documented as of this encounter
--- OUTSIDE RECORDS SUMMARY | 2025-02-02 16:37 | XMS_ITS | Encounter Summary ---
Author Organization [employer] Address 75 [facility] 7t [place] [address] Care Team Providers Care Inspector Final Assembly Mechanical Name Role Phone Sariah Vickers Primary Care Provider Yuri Pierre PharmD Unavailable Basilio Hall MD Unavailable Ron Preciado MD Unavailable [phone] Felipe Alanis MD Unavailable Rosemary Moses NP Unavailable May Unavailable Reason for Visit * Reason Comments Med Refill Encounter Details Date Type Department Care Team (Late st Contact Info) Description 10/03/2023 Refill [facility] 230 [place] [address] Sariah Vickers ANP 230 [place] [address] Chronic SI joint pain Social History Tobacco [...] Description 02/03/2025 11:00 AM EST Medication Management [facility] [address] [place] [address] Yuri Pierre, PharmD 230 [place] [address] 04/04/2025 10:00 AM EST Telemedicine [facility] 505 [place] [address] Azeb Hall, RN 505 [place] [address] 05/10/2025 1:00 PM EDT Office Visit [facility] [address] [place] [address] Sariah Vickers, ANP [address] [place] [address] documented as of this encounter Goals Goal [...] as of this encounter Care Teams Inspector Final Assembly Mechanical Relationship Specialty Start Date End Date Sariah Vickers ANP [address] [place] [address] PCP - General Family Medicine 09/23/19 Yuri Pierre, MikeD [address] [place] [address] Pharmacist Internal Medicine 05/05/24 Basilio Hall MD [address] [place] [address] Cardiology 05/17/24 01/10/25 Ron Preciado MD 5 [place] [address] Pulmonary Disease 05/17/24 Felipe Alanis MD [address] 3rd [place] [address] Cardiology 01/11/25 Rosemary Moses NP [address] [place] [address] Urology 01/11/25EllsworthMay [address] 3rd [place] [address] Gastroenterology 01/11/25 documented as of this encounter
--- OUTSIDE RECORDS SUMMARY | 2025-02-02 16:38 | XMS_ITS | Encounter Summary ---
Author Organization [employer] Address [address] [facility] [address] 7t [place] [address] Care Team Providers Care Chopper Gun Operator Name Role Phone Sariah Vickers Primary Care Provider Yuri Pierre PharmD Unavailable [phone] Basilio Hall MD Unavailable [phone] Ron Preciado MD Unavailable [phone] Felipe Alanis MD Unavailable Rosemary Moses NP Unavailable May Unavailable Reason for Visit * Reason Comments Med Refill Patient walked in [facility] pharmacy hasn't finished her Medbox due to missing refill for medication Gabapetin . Encounter Details Date Type Department Care Team (Late st Contact Info) Description 10/03/2023 Refill [facility] 230 [place], [place] [phone] Sariah Vickers ANP 230 [place], [place] [phone] Chronic SI joint pain Social History Tobacco [...] 02/03/2025 11:00 AM EST Medication Management [facility] 230 [place] [address] Yuri Pierre, PharmD 230 [place] [address] 04/04/2025 10:00 AM EST Telemedicine [facility] PEDS 505 [place] [address] Azeb Hall, MARTIN 505 [place] [address] 05/10/2025 1:00 PM EDT Office Visit [facility] 230 [place] [address] Sariah Vickers ANP 230 [place] [address] documented as of this encounter Goals Goal [...] documented as of this encounter Care Teams Chopper Gun Operator Relationship Specialty Start Date End Date Sariah Vickers ANP 230 [place] [address] PCP - General Family Medicine 09/23/19 Yuri Pierre, MikeD [address] [place] [address] Pharmacist Internal Medicine 05/05/24 Basilio Hall MD 596 [place] [address] Cardiology 05/17/24 01/10/25 Ron Preciado MD [address] [place] [address] Pulmonary Disease 05/17/24 Felipe Alanis MD [address] 3rd [place] [address] Cardiology 01/11/25 Rosemary Moses NP [address] [place] [address] Urology 01/11/25 Jodee May [address] 3rd [place] [address] Gastroenterology 01/11/25 documented as of this encounter
--- OUTSIDE RECORDS SUMMARY | 2025-02-02 16:40 | XMS_ITS | Encounter Summary ---
Author Organization [employer] Address 75 [facility] 7t [place] [address] Care Team Providers Care Core Stacker Name Role Phone Sariah Vickers Primary Care Provider [phone] Yuri Pierre PharmD Unavailable [phone] Basilio Hall MD Unavailable [phone] Ron Preciado MD Unavailable [phone] Felipe Alanis MD Unavailable [phone] Rosemary Moses NP Unavailable May Unavailable Reason for Visit * Reason Onset Date Comments Med Refill 01/09/2024 Encounter Details Date Type Department Care Team (Late st Contact Info) Description 01/09/2024 Telephone [facility] 230 [place] [address] Sariah Vickers ANP 230 [place] [address] Med Refill Social History Tobacco Use Types [...] Description 02/03/2025 11:00 AM EST Medication Management [facility] [address] [place] [address] Yuri Pierre, PharmD 230 [place] [address] 04/04/2025 10:00 AM EST Telemedicine [facility] 505 [place] [address] Azeb Hall, RN 505 [place] [address] 05/10/2025 1:00 PM EDT Office Visit [facility] [address] [place] [address] Sariah Vickers, KAYLEE 230 [place] [address] documented as of this encounter Goals Goal [...] documented as of this encounter Care Teams Core Stacker Relationship Specialty Start Date End Date Sariah Vickers ANP 230 [place] [address] PCP - General Family Medicine 09/23/19 Yuri Pierre, MikeD [address] [place] [address] Pharmacist Internal Medicine 05/05/24 Basilio Hall MD 596 [place] [address] Cardiology 05/17/24 01/10/25 Ron Preciado MD 5 [place] [address] Pulmonary Disease 05/17/24 Felipe Alanis MD [address] [place] [address] Cardiology 01/11/25 Rosemary Moses NP [address] [place] [address] Urology 01/11/[address] [place] [address] Gastroenterology 01/11/25 documented as of this encounter
--- OUTSIDE RECORDS SUMMARY | 2025-02-02 16:40 | XMS_ITS | Encounter Summary ---
Author Organization [employer] Address 75 [facility] 7t [place] [address] Care Team Providers Care Pile Operator Name Role Phone Sariah Vickers Primary Care Provider Yuri Pierre PharmD Unavailable Basilio Hall MD Unavailable Ron Preciado MD Unavailable [phone] Felipe Alanis MD Unavailable Rosemary Moses NP Unavailable May Unavailable Reason for Visit * Reason Comments Med Refill Encounter Details Date Type Department Care Team (Late st Contact Info) Description 10/03/2023 Refill [facility] 230 [place] [address] Sariah Vickers ANP 230 [place] [address] Chronic SI joint pain Social History Tobacco [...] Description 02/03/2025 11:00 AM EST Medication Management [facility] [address] [place] [address] Yuri Pierre, PharmD 230 [place] [address] 04/04/2025 10:00 AM EST Telemedicine [facility] 505 [place] [address] Azeb Hall, RN 505 [place] [address] 05/10/2025 1:00 PM EDT Office Visit [facility] [address] [place] [address] Sariah Vickers, ANP 230 [place] [address] documented as of this encounter Goals Goal [...] as of this encounter Care Teams Pile Operator Relationship Specialty Start Date End Date Sariah Vickers ANP 230 [place] [address] PCP - General Family Medicine 09/23/19 Yuri Pierre, MikeD [address] [place] [address] Pharmacist Internal Medicine 05/05/24 Basilio Hall MD 596 [place] [address] Cardiology 05/17/24 01/10/25 Ron Preciado MD 5 [place] [address] Pulmonary Disease 05/17/24 Felipe Alanis MD [address] 3rd [place] [address] Cardiology 01/11/25 Rosemary Moses NP [address] [place] [address] Urology 01/11/25EllsworthMay [address] 3rd [place] [address] Gastroenterology 01/11/25 documented as of this encounter
--- OUTSIDE RECORDS SUMMARY | 2025-02-02 16:40 | XMS_ITS | Encounter Summary ---
Author Organization [employer] Address 75 [facility] 7t [place] [address] Care Team Providers Care Dye Lab Technician Name Role Phone Sariah Vickers Primary Care Provider Yuri Pierre PharmD Unavailable Basilio Hall MD Unavailable Ron Preciado MD Unavailable [phone] Felipe Alanis MD Unavailable Rosemary Moses NP Unavailable May Unavailable Reason for Visit * Reason Comments Med Refill Encounter Details Date Type Department Care Team (Late st Contact Info) Description 11/26/2023 Refill [facility] 230 [place] [address] Sariah Vickers ANP 230 [place] [address] Vertigo Social History Tobacco Use Types Packs/Day [...] Description 02/03/2025 11:00 AM EST Medication Management [facility] [address] [place] [address] Yuri Pierre, PharmD 230 [place] [address] 04/04/2025 10:00 AM EST Telemedicine [facility] 505 [place] [address] Azeb Hall, RN 505 [place] [address] 05/10/2025 1:00 PM EDT Office Visit [facility] [address] [place] [address] Sariah Vickers, KAYLEE 230 [place] [address] documented as of this encounter Goals Goal [...] documented as of this encounter Care Teams Dye Lab Technician Relationship Specialty Start Date End Date Sariah Vickers ANP 230 [place] [address] PCP - General Family Medicine 09/23/19 Yuri Pierre PharmD [address] [place] [address] Pharmacist Internal Medicine 05/05/24 Basilio Hall MD 596 [place] [address] Cardiology 05/17/24 01/10/25 Ron Preciado MD 5 [place] [address] Pulmonary Disease 05/17/24 Felipe Alanis MD [address] 3rd [place] [address] Cardiology 01/11/25 Rosemary Moses NP [address] [place] [address] Urology 01/11/25 Umm Ellsworth [address] [place] [address] Gastroenterology 01/11/25 documented as of this encounter
--- OUTSIDE RECORDS SUMMARY | 2025-02-02 16:40 | XMS_ITS | Encounter Summary ---
Author Organization [employer] Address 75 [facility] 7t [place] [address] Care Team Providers Care Machine Stoppage Frequency Checker Name Role Phone Sariah Vickers Primary Care Provider Yuri Pierre PharmD Unavailable Basilio Hall MD Unavailable Ron Preciado MD Unavailable [phone] Felipe Alanis MD Unavailable [phone] Rosemary Moses NP Unavailable May Unavailable Reason for Visit * Reason Comments Med Refill Encounter Details Date Type Department Care Team (Late st Contact Info) Description 10/17/2023 Refill [facility] 230 [place] [address] Sariah Vickers ANP 230 [place] [address] Neck pain Social History Tobacco Use Types [...] Management [facility] [address] [place] [address] Yuri Pierre, PharmD 230 [place] [address] 04/04/2025 10:00 AM EST Telemedicine [facility] 505 [place] [address] Azeb Hall, RN 505 [place] [address] 05/10/2025 1:00 PM EDT Office Visit [facility] [address] [place] [address] Sariah Vickers, KAYLEE 230 [place] [address] documented as of this encounter Goals Goal [...] as of this encounter Care Teams Machine Stoppage Frequency Checker Relationship Specialty Start Date End Date Sariah Vickers ANP 230 [place] [address] PCP - General Family Medicine 09/23/19 Yuri Pierre, MikeD [address] [place] [address] Pharmacist Internal Medicine 05/05/24 Basilio Hall MD 596 [place] [address] Cardiology 05/17/24 01/10/25 Ron Preciado MD 5 [place] [address] Pulmonary Disease 05/17/24 Felipe Alanis MD [address] [place] [address] Cardiology 01/11/25 Rosemary Moses NP [address] [place] [address] Urology 01/11/25 Umm [place] [address] [place] [address] Gastroenterology 01/11/25 documented as of this encounter
--- OUTSIDE RECORDS SUMMARY | 2025-02-02 16:40 | XMS_ITS | Encounter Summary ---
Author Organization [employer] Address 75 [facility] 7t [place] [address] Care Team Providers Care Risk Management Analyst Name Role Phone Sariah Vickers Primary Care Provider Yuri Pierre PharmD Unavailable Basilio Hall MD Unavailable [phone] Ron Preciado MD Unavailable [phone] Felipe Alanis MD Unavailable Rosemary Moses NP Unavailable May Unavailable Reason for Visit * Reason Comments Med Refill Encounter Details Date Type Department Care Team (Late st Contact Info) Description 12/17/2023 Refill [facility] 230 [place] [address] Sariah Vickers ANP 230 [place] [address] Chronic SI joint pain Social History Tobacco [...] Description 02/03/2025 11:00 AM EST Medication Management [facility] [address] [place] [address] Yuri Pierre, PharmD 230 [place] [address] 04/04/2025 10:00 AM EST Telemedicine [facility] 505 [place] [address] Azeb Hall, RN 505 [place] [address] 05/10/2025 1:00 PM EDT Office Visit [facility] [address] [place] [address] Sariah Vickers, ANP 230 [place] [address] documented as of this encounter Goals Goal [...] as of this encounter Care Teams Risk Management Analyst Relationship Specialty Start Date End Date Sariah Vickers ANP 230 [place] [address] PCP - General Family Medicine 09/23/19 Yuri Pierre, MikeD [address] [place] [address] Pharmacist Internal Medicine 05/05/24 Basilio Hall MD 596 [place] [address] Cardiology 05/17/24 01/10/25 Ron Preciado MD 5 [place] [address] Pulmonary Disease 05/17/24 Felipe Alanis MD [address] [place] [address] Cardiology 01/11/25 Rosemary Moses NP [address] [place] [address] Urology 01/11/[address] [place] [address] Gastroenterology 01/11/25 documented as of this encounter
--- OUTSIDE RECORDS SUMMARY | 2025-02-02 16:40 | XMS_ITS | Encounter Summary ---
Author Organization [employer] Address 75 [facility] 7t [place] [address] Care Team Providers Care Front Maker Lockstitch Name Role Phone Sariah Vickesr Primary Care Provider Yuri Pierre PharmD Unavailable Basilio Hall MD Unavailable Ron Preciado MD Unavailable [phone] Felipe Alanis MD Unavailable Rosemary Moses NP Unavailable May Unavailable Reason for Visit * Reason Comments Med Refill Encounter Details Date Type Department Care Team (Late st Contact Info) Description 11/24/2023 Refill [facility] MEDICINE 230 [place] [address] Sariah Vickers ANP 230 [place] [address] Vertigo Social History Tobacco Use Types Packs/Day [...] Description 02/03/2025 11:00 AM EST Medication Management [facility] MEDICINE [address] [place] [address] Yuri Pierre, PharmD 230 [place] [address] 04/04/2025 10:00 AM EST Telemedicine [facility] CHC MED & PEDS 505 [place] [address] Azeb Hall, RN 505 [place] [address] 05/10/2025 1:00 PM EDT Office Visit [facility] MEDICINE [address] [place] [address] Sariah Vickers, KAYLEE 230 [place] [address] documented as of this encounter Goals Goal [...] as of this encounter Care Teams Front Maker Lockstitch Relationship Specialty Start Date End Date Sariah Vickers ANP 230 [place] [address] PCP - General Family Medicine 09/23/19 Yuri Pierre PharmD [address] [place] [address] Pharmacist Internal Medicine 05/05/24 Basilio Hall MD 596 [place] [address] Cardiology 05/17/24 01/10/25 Ron Preciado MD 5 [place] [address] Pulmonary Disease 05/17/24 Felipe Alains MD [address] 3rd [place] [address] Cardiology 01/11/25 Rosemary Moses NP [address] [place] [address] Urology 01/11/25 Umm Ellsworth [address] [place] [address] Gastroenterology 01/11/25 documented as of this encounter
--- OUTSIDE RECORDS SUMMARY | 2025-02-02 16:40 | XMS_ITS | Encounter Summary ---
Author Organization [email or web address] Address 75 [facility] 7t [place] [address] Care Team Providers Care Ultrasound Manager Name Role Phone Sariah Vickers Primary Care Provider [phone] Yuri Pierre PharmD Unavailable Basilio Hall MD Unavailable Ron Preciado MD Unavailable [phone] Felipe Alanis MD Unavailable Rosemary Moses NP Unavailable May Unavailable Reason for Visit * Reason Comments Med Refill Encounter Details Date Type Department Care Team (Late st Contact Info) Description 10/24/2023 Refill [facility] MEDICINE 230 [place] [address] Sariah Vickers ANP 230 [place] [address] Neck pain Social History Tobacco Use Types [...] Description 02/03/2025 11:00 AM EST Medication Management [facility] MEDICINE [address] [place] [address] Yuri Pierre, PharmD 230 [place] [address] 04/04/2025 10:00 AM EST Telemedicine [facility] CHC MED & PEDS 505 [place] [address] Azeb Hall, RN 505 [place] [address] 05/10/2025 1:00 PM EDT Office Visit [facility] MEDICINE [address] [place] [address] Sariah Vickers, KAYLEE 230 [place] [address] documented as of this encounter Goals Goal [...] documented as of this encounter Care Teams Ultrasound Manager Relationship Specialty Start Date End Date Sariah Vickers ANP 230 [place] [address] PCP - General Family Medicine 09/23/19 Yuri Pierre, MikeD [address] [place] [address] Pharmacist Internal Medicine 05/05/24 Basilio Hall MD 596 [place] [address] Cardiology 05/17/24 01/10/25 Ron Preciado MD 5 [place] [address] Pulmonary Disease 05/17/24 Felipe Alanis MD [address] [place] [address] Cardiology 01/11/25 Rosemary Moses NP [address] [place] [address] Urology 01/11/25 Umm Ellsworth [address]rd [place] [address] Gastroenterology 01/11/25 documented as of this encounter
--- OUTSIDE RECORDS SUMMARY | 2025-02-02 16:40 | XMS_ITS | Encounter Summary ---
Author Organization [employer] Address 75 [facility] 7t [place] [address] Care Team Providers Care Siebel Consultant Name Role Phone Sariah Vickers Primary Care Provider Yuri Pierre PharmD Unavailable Basilio Hall MD Unavailable Ron Preciado MD Unavailable [phone] Felipe Alanis MD Unavailable Rosemary Moses NP Unavailable May Unavailable Reason for Visit * Reason Comments Med Refill Encounter Details Date Type Department Care Team (Late st Contact Info) Description 01/06/2024 Refill [facility] CHC MED & PEDS [address] [place] [address] Sariah Vickers ANP 230 [place] [address] Cervicalgia Social History Tobacco Use Types Packs/Day [...] Description 02/03/2025 11:00 AM EST Medication Management [facility] MEDICINE [address] [place] [address] Yuri Pierre, PharmD 230 [place] [address] 04/04/2025 10:00 AM EST Telemedicine [facility] CHC MED & PEDS 505 [place] [address] Azeb Hall, RN 505 [place] [address] 05/10/2025 1:00 PM EDT Office Visit [facility] MEDICINE [address] [place] [address] Sariah Vickers, ANP 230 [place] [address] documented as of this encounter Goals Goal [...] documented as of this encounter Care Teams Siebel Consultant Relationship Specialty Start Date End Date Sariah Vickers ANP 230 [place] [address] PCP - General Family Medicine 09/23/19 Yuri Pierre, MiekD [address] [place] [address] Pharmacist Internal Medicine 05/05/24 Basilio Hall MD 596 [place] [address] Cardiology 05/17/24 01/10/25 Ron Preciado MD 5 [place] [address] Pulmonary Disease 05/17/24 Felipe Alanis MD [address]rd [place] [address] Cardiology 01/11/25 Rosemary Moses NP [address] [place] [address] Urology 01/11/25 Jodee Umm [address] [place] [address] Gastroenterology 01/11/25 documented as of this encounter
--- OUTSIDE RECORDS SUMMARY | 2025-02-02 16:40 | XMS_ITS | Encounter Summary ---
Author Organization [employer] Address 75 [facility] 7t [place] [address] Care Team Providers Care Irrigation Flume Layer Name Role Phone Sariah Vickers Primary Care Provider [phone] Yuri Pierre PharmD Unavailable [phone] Basilio Hall MD Unavailable Ron Preciado MD Unavailable [phone] Felipe Alanis MD Unavailable Rosemary Moses NP Unavailable May Unavailable Reason for Visit * Reason Comments Med Refill Pt wants to know if she can keep taking prednis Encounter Details Date Type Department Care Team (Late st Contact Info) Description 06/26/2024 Refill [facility] CHC MED & PEDS [address] [place], [place] [phone] Sariah Vickers ANP [address] [place] [address] Cervicalgia Social History Tobacco Use Types Packs/Day [...] Medication Management [facility] MEDICINE [address] [place] [address] Yuri Pierre, PharmD [address] [place] [address] 04/04/2025 10:00 AM EST Telemedicine [facility] CHC MED & PEDS 505 [place] [address] Azeb Hall, RN 505 [place] [address] 05/10/2025 1:00 PM EDT Office Visit [facility] MEDICINE [address] [place] [address] Sariah Vickers, ANP [address] [place] [address] documented as of this encounter Goals Goal [...] documented as of this encounter Care Teams Irrigation Flume Layer Relationship Specialty Start Date End Date Sariah Vickers ANP [address] [place] [address] PCP - General Family Medicine 09/23/19 Yuri Pierre, MikeD [address] [place] [address] Pharmacist Internal Medicine 05/05/24 Basilio Hall MD 596 [place] [address] Cardiology 05/17/24 01/10/25 Ron Preciado MD 5 [place] [address] Pulmonary Disease 05/17/24 Felipe Alanis MD [address] 3rd [place] [address] Cardiology 01/11/25 Rosemary Moses NP [address] [place] [address] Urology 01/11/[address] 3rd [place] [address] Gastroenterology 01/11/25 documented as of this encounter
--- OUTSIDE RECORDS SUMMARY | 2025-02-02 16:40 | XMS_ITS | Encounter Summary ---
Author Organization [employer] Address 75 [facility] 7t [place] [address] Care Team Providers Care Travel Service Consultant Name Role Phone Sariah Vickers Primary Care Provider Yuri Pierre PharmD Unavailable [phone] Basilio Hall MD Unavailable Ron Preciado MD Unavailable Felipe Alanis MD Unavailable Rosemary Moses NP Unavailable May Unavailable Reason for Visit * Reason Comments Med Refill Encounter Details Date Type Department Care Team (Late st Contact Info) Description 01/06/2024 Refill [facility] CHC MED & PEDS [address] [place] [address] Sariah Vickers ANP 230 [place] [address] Cervicalgia Social History Tobacco Use Types Packs/Day [...] Description 02/03/2025 11:00 AM EST Medication Management [facility] MEDICINE [address] [place] [address] Yuri Pierre, PharmD 230 [place] [address] 04/04/2025 10:00 AM EST Telemedicine [facility] CHC MED & PEDS 505 [place] [address] Azeb Hall, RN 505 [place] [address] 05/10/2025 1:00 PM EDT Office Visit [facility] MEDICINE [address] [place] [address] Sariah Vickers, ANP 230 [place] [address] documented as of this encounter Goals Goal [...] documented as of this encounter Care Teams Travel Service Consultant Relationship Specialty Start Date End Date Sariah Vickers ANP 230 [place] [address] PCP - General Family Medicine 09/23/19 Yuri Pierre, MikeD [address] [place] [address] Pharmacist Internal Medicine 05/05/24 Basilio Hall MD 596 [place] [address] Cardiology 05/17/24 01/10/25 Ron Preciado MD 5 [place] [address] Pulmonary Disease 05/17/24 Felipe Alanis MD [address] 3rd [place] [address] Cardiology 01/11/25 Rosemary Moses NP [address] [place] [address] Urology 01/11/25 Jodee Umm [address] 3rd [place] [address] Gastroenterology 01/11/25 documented as of this encounter
--- OUTSIDE RECORDS SUMMARY | 2025-02-02 16:40 | XMS_ITS | Encounter Summary ---
Author Organization [employer] Address 75 [facility] 7t [place] [address] Care Team Providers Care Chief Electrician Name Role Phone Sariah Vickers Primary Care Provider Yuri Pierre PharmD Unavailable [phone] Basilio Hall MD Unavailable Ron Preciado MD Unavailable [phone] Felipe Alanis MD Unavailable Rosemary Moses NP Unavailable May Unavailable Reason for Visit * Reason Comments Med Refill Encounter Details Date Type Department Care Team (Late st Contact Info) Description 01/04/2024 Refill [facility] CH[facility] MED & PEDS [address] [place] [address] Sariah Vickers ANP 230 [place] [address] Cervicalgia Social History Tobacco Use Types Packs/Day [...] [facility] MEDICINE [address] [place] [address] Yuri Pierre, PharmD 230 [place] [address] 04/04/2025 10:00 AM EST Telemedicine [facility] CHC MED & PEDS 505 [place] [address] Azeb Hall, RN 505 [place] [address] 05/10/2025 1:00 PM EDT Office Visit [facility] MEDICINE [address] [place] [address] Sariah Vickers, ANP 230 [place] [address] documented as of this encounter Goals Goal [...] as of this encounter Care Teams Chief Electrician Relationship Specialty Start Date End Date Sariah Vickers ANP 230 [place] [address] PCP - General Family Medicine 09/23/19 Yuri Pierre, MikeD [address] [place] [address] Pharmacist Internal Medicine 05/05/24 Basilio Hall MD 596 [place] [address] Cardiology 05/17/24 01/10/25 Ron Preciado MD 5 [place] [address] Pulmonary Disease 05/17/24 Felipe Alanis MD [address]rd [place] [address] Cardiology 01/11/25 Rosemary Moses NP [address] [place] [address] Urology 01/11/25 Jodee Umm [address]rd [place] [address] Gastroenterology 01/11/25 documented as of this encounter
--- OUTSIDE RECORDS SUMMARY | 2025-02-02 16:40 | XMS_ITS | Encounter Summary ---
Author Organization [employer] Address 75 [facility] 7t [place] [address] Care Team Providers Care Baby Counselor Name Role Phone Sariah Vickers Primary Care Provider Yuri Pierre PharmD Unavailable [phone] Basilio Hall MD Unavailable Ron Preciado MD Unavailable [phone] Felipe Alanis MD Unavailable Rosemary Moses NP Unavailable May Unavailable Reason for Visit * Reason Comments Med Refill Encounter Details Date Type Department Care Team (Late st Contact Info) Description 11/14/2023 Refill [facility] MEDICINE 230 [place] [address] Sariah Vickers ANP 230 [place] [address] Neck pain Social History Tobacco Use Types [...] 11:00 AM EST Medication Management [facility] MEDICINE [address] [place] [address] Yuri Pierre, PharmD 230 [place] [address] 04/04/2025 10:00 AM EST Telemedicine [facility] CHC MED & PEDS 505 [place] [address] Azeb Hall, RN 505 [place] [address] 05/10/2025 1:00 PM EDT Office Visit [facility] MEDICINE [address] [place] [address] Sariah Vickers, KAYLEE 230 [place] [address] documented as of this encounter Goals Goal [...] documented as of this encounter Care Teams Baby Counselor Relationship Specialty Start Date End Date Sariah Vickers ANP 230 [place] [address] PCP - General Family Medicine 09/23/19 Yuri Pierre, MikeD [address] [place] [address] Pharmacist Internal Medicine 05/05/24 Basilio Hall MD 596 [place] [address] Cardiology 05/17/24 01/10/25 Ron Preciado MD 5 [place] [address] Pulmonary Disease 05/17/24 Felipe Alanis MD [address] [place] [address] Cardiology 01/11/25 Rosemary Moses NP [address] [place] [address] Urology 01/11/25 Umm Ellsworth [address]rd [place] [address] Gastroenterology 01/11/25 documented as of this encounter
--- OUTSIDE RECORDS SUMMARY | 2025-02-02 16:40 | XMS_ITS | Encounter Summary ---
Author Organization [employer] Address 75 [facility] 7t [place] [address] Care Team Providers Care Ore Digger Name Role Phone Sariah Vickers Primary Care Provider [phone] Yuri Pierre PharmD Unavailable Basilio Hall MD Unavailable [phone] Ron Preciado MD Unavailable [phone] Felipe Alanis MD Unavailable Rosemary Moses NP Unavailable May Unavailable Reason for Visit * Reason Comments Med Refill Encounter Details Date Type Department Care Team (Late st Contact Info) Description 06/17/2024 Refill [facility] 230 [place] [address] Sariah Vickers ANP 230 [place] [address] Neck pain Social History Tobacco Use Types [...] [facility] MEDICINE [address] [place] [address] Yuri Pierre, PharmD 230 [place] [address] 04/04/2025 10:00 AM EST Telemedicine [facility] CHC MED & PEDS 505 [place] [address] Azeb Hall, RN 505 [place] [address] 05/10/2025 1:00 PM EDT Office Visit [facility] MEDICINE [address] [place] [address] Sariah Vickers, ANP 230 [place] [address] documented as of this encounter Goals Goal [...] as of this encounter Care Teams Ore Digger Relationship Specialty Start Date End Date Sariah Vickers ANP 230 [place] [address] PCP - General Family Medicine 09/23/19 Yuri Pierre PharmD [address] [place] [address] Pharmacist Internal Medicine 05/05/24 Basilio Hall MD 596 [place] [address] Cardiology 05/17/24 01/10/25 Ron Preciado MD 5 [place] [address] Pulmonary Disease 05/17/24 Felipe Alanis MD [address] 3rd [place] [address] Cardiology 01/11/25 Rosemary Moses NP [address] [place] [address] Urology 01/11/25 Jodee Umm [address]rd [place] [address] Gastroenterology 01/11/25 documented as of this encounter
--- OUTSIDE RECORDS SUMMARY | 2025-02-02 16:41 | XMS_ITS | Encounter Summary ---
Author Organization [employer] Address 75 [facility] 7t [place] [address] Care Team Providers Care Purchase Analyst Name Role Phone Sariah Vickers Primary Care Provider [phone] Yuri Pierre PharmD Unavailable [phone] Basilio Hall MD Unavailable Ron Preciado MD Unavailable [phone] Felipe Alanis MD Unavailable [phone] Rosemary Moses NP Unavailable May Unavailable Reason for Visit * Reason Comments Med Refill Encounter Details Date Type Department Care Team (Late st Contact Info) Description 12/19/2022 Refill [facility] MEDICINE 230 [place] [address] Sariah Vickers ANP 230 [place] [address] Vertigo Social History Tobacco Use Types Packs/Day [...] the past 12 months, has t he [employer] gas, oil or water company threatened to [...] 11:00 AM EST Medication Management [facility] MEDICINE [address] [place] [address] Yuri Pierre, PharmD 230 [place] [address] 04/04/2025 10:00 AM EST Telemedicine [facility] CHC MED & PEDS 505 [place] [address] Azeb Hall, MARTIN 505 [place] [address] 05/10/2025 1:00 PM EDT Office Visit [facility] MEDICINE [address] [place] [address] Sariah Vickers, ANP 230 [place] [address] documented as of this encounter Goals Goal Patient Goal Type Associated Problems Recent Progress Patient-Stated? Author Blood Pressure < 140/90 Blood Pressure 148/86(2024 2:55 PM EST) Veronica Ernstsa, PharmD Record Your Blood Sugar As Directed General No Aida Ragland PharmD Hemoglobin A1c < 7 Result Component 6.6( 5 12:59 PM EST) No Aida Ragland PharmBear documented as of this encounter Visit Diagnoses Diagnosis Vertigo Dizziness and giddiness documented in this encounter Care Teams Purchase Analyst Relationship Specialty Start Date End Date Sariah Vickers ANP 230 [place] [address] PCP - General Family Medicine 09/23/19 Yuri Pierre, MikeD 230 [place] [address] Pharmacist Internal Medicine 05/05/24 Basilio Hall MD 596 [place] [address] Cardiology 05/17/24 01/10/25 Ron Preciado MD 5 [place] [address] Pulmonary Disease 05/17/24 Felipe Alanis MD [address] 3rd [place] [address] Cardiology 01/11/25 Rosemary Moses NP [address] [place] [address] Urology 01/11/25May [address] 3rd [place] [address] Gastroenterology 01/11/25 documented as of this encounter
--- OUTSIDE RECORDS SUMMARY | 2025-02-02 16:41 | XMS_ITS | Encounter Summary ---
Author Organization [employer] Address 75 [facility] 7t [place] [address] Care Team Providers Care Pharmacovigilance Specialist Name Role Phone Sariah Vickers Primary Care Provider Yuri Pierre PharmD Unavailable [phone] Basilio Hall MD Unavailable [phone] Ron Preciado MD Unavailable Felipe Alanis MD Unavailable Rosemary Moses NP Unavailable May Unavailable Reason for Visit * Reason Onset Date Comments Med Refill 03/04/2023 Encounter Details Date Type Department Care Team (Late st Contact Info) Description 03/04/2023 Telephone [facility] MEDICINE 230 [place], [place] [phone] Sariah Vickers ANP 230 [place] [address] Med Refill Social History Tobacco Use Types [...] the past 12 months, has t he [employer], gas, oil or water company threatened to [...] 50 MG tablet To be sent to: [facility] [place], [place] - [address] [place] [address] documented in this encounter Plan of Treatment Upcoming Encounters Date Type Department Care Team ([facility] st Contact Info) Description 02/03/2025 11:00 AM EST Medication Management [facility] MEDICINE 230 [place] [address] Yuri Pierre, PharmD 230 [place] [address] 04/04/2025 10:00 AM EST Telemedicine [facility] CHC MED & PEDS 505 [place] [address] Azeb Hall, RN 505 [place] [address] 05/10/2025 1:00 PM EDT Office Visit [facility] MEDICINE 230 [place] [address] Sariah Vickers ANP 230 [place] [address] documented as of this encounter Goals Goal Patient Goal Type Associated Problems Recent Progress Patient-Stated? Author Blood Pressure < 140/90 Blood Pressure 148/86(2024 2:55 PM EST) No Phanis-Gambl Veronica urbinasa, PharmD Record Your Blood Sugar As Directed General No Piers-Gambl eVeronicasa, PharmD Hemoglobin A1c < 7 Result Component 6.6( 12:59 PM EST) No Piers-Gambl eAida, PharmD documented as of this encounter Visit Diagnoses Not on filedocumented in this encounter Care Teams Pharmacovigilance Specialist Relationship Specialty Start Date End Date Sariah Vickers ANP 230 [place] [address] PCP - General Family Medicine 09/23/19 Yuri Pierre, MikeD [address] [place] [address] Pharmacist Internal Medicine 05/05/24 Basilio Hall MD 596 [place] [address] Cardiology 05/17/24 01/10/25 Ron Preciado MD 5 [place] [address] Pulmonary Disease 05/17/24 Felipe Alanis MD [address] 3rd [place] [address] Cardiology 01/11/25 Rosemary Moses NP [address] [place] [address] Urology 01/11/25 Umm Ellsworth [address] 3rd [place] [address] Gastroenterology 01/11/25 documented as of this encounter
--- OUTSIDE RECORDS SUMMARY | 2025-02-02 16:41 | XMS_ITS | Encounter Summary ---
Author Organization [employer] Address 75 [facility] 7t [place] [address] Care Team Providers Care Metal Coater Name Role Phone Sariah Vickers KAYLEE Primary Care Provider Yuri Pierre PharmD Unavailable Basilio Hall MD Unavailable Ron Preciado MD Unavailable [phone] Felipe Alanis MD Unavailable Rosemary Moses NP Unavailable May Unavailable Reason for Visit * Reason Comments Med Refill Encounter Details Date Type Department Care Team (Late st Contact Info) Description 11/11/2024 Refill [facility] 230 [place] [address] Yogesh Gomez, JOHN [address] [place] [address] Social History Tobacco Use Types Packs/Day Years [...] Description 02/03/2025 11:00 AM EST Medication Management [facility] MEDICINE 230 [place] [address] Yuri Pierre, PharmD 230 [place] [address] 04/04/2025 10:00 AM EST Telemedicine [facility] CHC MED & PEDS 505 [place] [address] Azeb Hall, RN 505 [place] [address] 05/10/2025 1:00 PM EDT Office Visit [facility] MEDICINE 230 [place] [address] Sariah Vickers ANP 230 [place] [address] documented as of this encounter Goals [...] as of this encounter Care Teams Metal Coater Relationship Specialty Start Date End Date Sariah Vickers ANP 230 [place] [address] PCP - General Family Medicine 09/23/19 Yuri Pierre, MikeD [address] [place] [address] Pharmacist Internal Medicine 05/05/24 Basilio Hall MD 596 [place] [address] Cardiology 05/17/24 01/10/25 Ron Preciado MD [address] [place] [address] Pulmonary Disease 05/17/24 Felipe Alanis MD 11 [facility] 3rd [place] [address] Cardiology 01/11/25 Rosemary Moses NP [address] [place] [address] Urology 01/11/25 Jodee Umm [address] 3rd [place] [address] Gastroenterology 01/11/25 documented as of this encounter
--- OUTSIDE RECORDS SUMMARY | 2025-02-02 16:41 | XMS_ITS | Encounter Summary ---
Author Organization [employer] Address 75 [facility] 7t [place] [address] Care Team Providers Care Dairy Feed Mixing Operator Name Role Phone Anthony Ruiz Primary Care Provider [phone] Yuri Pierre PharmD Unavailable Basilio Hall MD Unavailable Ron Preciado MD Unavailable [phone] Felipe Alanis MD Unavailable Roesmary Moses NP Unavailable May Unavailable Encounter Details Date Type Department Care Team (Late st Contact Info) Description 09/28/2024 Orders Only [facility] 230 [place], [place] [phone] Anthony Ruiz ANP 230 [place], [place] [phone] Social History Tobacco Use Types Packs/Day Years [...] the past 12 months, has t he [employer], gas, oil or water company threatened to [...] EST Medication Management [facility] [address] [place] [address] Yuri Pierre, PharmD 230 [place] [address] 04/04/2025 10:00 AM EST Telemedicine [facility] PEDS 505 [place] [address] Azeb Hall, RN 505 [place] [address] 05/10/2025 1:00 PM EDT Office Visit [facility] [address] [place] [address] Anthony Ruiz, ANP 230 [place] [address] documented as of this encounter Goals Goal [...] PM EDT Narrative 10/09/2024 1:20 PM EDT [place] [address] [address] Scan Report Signed Patient: Nuvia Fay MR #: [id number] : [id number] Acct:[id number] Age/Sex: 64 / F ADM Date: 10/08/24 Loc: .CT Attending Dr: Ron Preciado MD Ordering Physician: Ron Preciado MD Date of Service: 10/08/24 Procedure(s): CT lung screening Accession Number(s): [id number] cc: Ron Preciado MD; ANTHONY RUIZ NP Report Number: [id number]: Total DLP = 64.00 mGy-cm CLINICAL HISTORY: [...] MD Signed By: <Electronically signed by Ligia Myirck MD in OV> 10/09/24 1319 DD/ 1318 TD/TT: 10/09/24 1318 Outside Sales Associate: Procedure Note Donotuseinterpreter, Image - 10/09/[address] [address] [address] Scan Report Signed Patient: Nuvia Fay EMR #: [id number] : 1Acct:[id number] Age/Sex: 64 / FADM Date: 10/08/24 Loc: HO.CT Attending Dr: Ron Preciado MD Ordering Physician: Ron Preciado MD Date of Service: 10/08/24 Procedure(s): CT lung screening Accession Number(s): [id number] cc: Ron Preciado MD; ANTHONY RUIZ NP Report Number: [id number]: Total DLP = 64.00 mGy-cm CLINICAL HISTORY: [...] 10/09/24 1319 DD/ 1318 TD/TT: 10/09/24 1318 Outside Sales Associate: [facility] External Provider IMG CT PROCEDURES Edited Result - Final documented in this encounter Visit Diagnoses Not on filedocumented in this encounter Additional Health Concerns Assessment Noted Time PHQ-9 Depression Total Score: 12 024 2:58 PM EDT documented as of this encounter Care Teams Dairy Feed Mixing Operator Relationship Specialty Start Date End Date Anthony Ruiz, ANP 230 [place] [address] PCP - General Family Medicine 09/23/19 Yuri Pierre, MikeD [address] [place] [address] Pharmacist Internal Medicine 05/05/24 Basilio Hall MD 596 [place] [address] Cardiology 05/17/24 01/10/25 Ron Preciado MD 5 [place] [address] Pulmonary Disease 05/17/24 Felipe Alanis MD [address] [facility] 3rd [place] [address] Cardiology 01/11/25 Rosemary Moses NP [address] [place] [address] Urology 01/11/25 Umm Ellsworth [address] 3rd [place] [address] Gastroenterology 01/11/25 documented as of this encounter
--- OUTSIDE RECORDS SUMMARY | 2025-02-02 16:41 | XMS_ITS | Encounter Summary ---
Author Organization [employer] Address 75 [facility] 7t [place] [address] Care Team Providers Care Land Commissioner Name Role Phone Sariah Vickers Primary Care Provider Yuri Pierre PharmD Unavailable Basilio Hall MD Unavailable [phone] Ron Preciado MD Unavailable [phone] Felipe Alanis MD Unavailable [phone] Rosemary Moses NP Unavailable May Unavailable Reason for Visit * Reason Onset Date Comments Referral 08/02/2024 Encounter Details Date Type Department Care Team (Late st Contact Info) Description 08/02/2024 Telephone [facility] 230 [place], [place] [phone] Sariah Vickers ANP 230 [place], [place] [phone] Referral Social History Tobacco Use Types Packs/Day [...] for vertigo therapy. Please contact pt at [phone]. (Albanian Speaker) documented in this encounter Plan of Treatment Upcoming Encounters Date Type Department Care Team ([facility] st Contact Info) Description 02/03/2025 11:00 AM EST Medication Management [facility] 230 [place], [place] [phone] Yuri Pierre, PharmD 230 [place] [address] 04/04/2025 10:00 AM EST Telemedicine [facility] MED [facility] PEDS 505 [place] [address] Azeb Hall, RN 505 [place], [place] 05/10/2025 1:00 PM EDT Office Visit [facility] 230 [place] [address] Sariah Vickers ANP 230 [place] [address] documented as of this encounter Goals Goal [...] documented as of this encounter Care Teams Land Commissioner Relationship Specialty Start Date End Date Sariah Vickers ANP 230 [place] [address] PCP - General Family Medicine 09/23/19 Yuri Pierre, PharmD 230 [place] [address] Pharmacist Internal Medicine 05/05/24 Basilio Hall MD 596 [place] [address] Cardiology 05/17/24 01/10/25 Ron Preciado MD [address] [place] [address] Pulmonary Disease 05/17/24 Felipe Alanis MD [address] 3rd [place] [address] Cardiology 01/11/25 Rosemary Moses NP [address] [place] [address] Urology 01/11/[address] 3rd [place] [address] Gastroenterology 01/11/25 documented as of this encounter
--- OUTSIDE RECORDS SUMMARY | 2025-02-02 16:41 | XMS_ITS | Encounter Summary ---
Author Organization [employer] Address 75 [facility] 7t [place] [address] Care Team Providers Care Engineering Professor Name Role Phone Sariah Vickers Primary Care Provider Yuri Pierre PharmD Unavailable [phone] Basilio Hall MD Unavailable [phone] Ron Preciado MD Unavailable [phone] Felipe Alanis MD Unavailable Rosemary Moses NP Unavailable May Unavailable Reason for Visit * Reason Onset Date Comments Nurse Triage 01/14/2023 Encounter Details Date Type Department Care Team (Late st Contact Info) Description 01/14/2023 Telephone [facility] 230 [place] [address] Sariah Vickers ANP 230 [place] [address] Nurse Triage Social History Tobacco Use Types [...] the past 12 months, has t he [employer], gas, oil or water [employer] threatened to shut off services in [...] 01/14/2023 9:26 AM EST Called pt. Via [employer] educational sign language interpreter [id number] Kelly. Pt. States that she has been having a fire feeling in her legs. Its like A burning that goes down her legs . Pt. Unsure if it because of her Diabetes. Pt. Went to [facility] for pain on her [...] 10am. Will send note to clinical care director to have note put in [...] Severe pain now, pt was seen at [facility] on 01/13 for pain in leg. Pt is still symptomatic The caller accepted this outcome Please contact pt at [phone] (historic interpreter needed) documented in this encounter Plan of Treatment Upcoming Encounters Date Type Department Care Team ([facility] st Contact Info) Description 02/03/2025 11:00 AM EST Medication Management [facility] [address] [place] [address] Yuri Pierre, Dileep [address] [place] [address] 04/04/2025 10:00 AM EST Telemedicine [facility] 505 [place] [address] Azeb Hall, MARTIN 505 [place] [address] 05/10/2025 1:00 PM EDT Office Visit [facility] [address] [place] [address] Sariah Vickers, ANP 230 [place] [address] documented as of this encounter Goals Goal [...] on filedocumented in this encounter Care Teams Engineering Professor Relationship Specialty Start Date End Date Sariah Vickers ANP 230 [place] [address] PCP - General Family Medicine 09/23/19 Yuri Pierre PharmD 230 [place] [address] Pharmacist Internal Medicine 05/05/24 Basilio Hall MD 596 [place] [address] Cardiology 05/17/24 01/10/25 Ron Preciado MD 5 [place] [address] Pulmonary Disease 05/17/24 Felipe Alanis MD [address] 3rd [place] [address] Cardiology 01/11/25 Rosemary Moses NP [address] [place] [address] Urology 01/11/25 Jodee Umm [address] 3rd [place] [address] Gastroenterology 01/11/25 documented as of this encounter
--- OUTSIDE RECORDS SUMMARY | 2025-02-02 16:41 | XMS_ITS | Encounter Summary ---
Author Organization [employer] Address 75 [facility] 7t [place] [address] Care Team Providers Care Population Health Manager Name Role Phone Sariah Vickers Primary Care Provider Yuri Pierre PharmD Unavailable [phone] Basilio Hall MD Unavailable [phone] Ron Preciado MD Unavailable [phone] Felipe Alanis MD Unavailable Rosemary Moses NP Unavailable May Unavailable Reason for Visit * Reason Comments Med Refill Encounter Details Date Type Department Care Team (Late st Contact Info) Description 11/12/2024 Refill [facility] 230 [place] [address] Sariah Vickers ANP 230 [place] [address] Neck pain Social History Tobacco Use Types [...] Description 02/03/2025 11:00 AM EST Medication Management [facility] [address] [place] [address] Yuri Pierre, PharmD 230 [place] [address] 04/04/2025 10:00 AM EST Telemedicine [facility] 505 [place] [address] Azeb Hall, RN 505 [place] [address] 05/10/2025 1:00 PM EDT Office Visit [facility] [address] [place] [address] Sariah Vickers, ANP 230 [place] [address] documented as of this encounter Goals Goal [...] documented as of this encounter Care Teams Population Health Manager Relationship Specialty Start Date End Date Sariah Vickers ANP 230 [place] [address] PCP - General Family Medicine 09/23/19 Yuri Pierre, MikeD [address] [place] [address] Pharmacist Internal Medicine 05/05/24 Basilio Hall MD 596 [place] [address] Cardiology 05/17/24 01/10/25 Ron Preciado MD 5 [place] [address] Pulmonary Disease 05/17/24 Felipe Alanis MD 11 [facility] 3rd [place] [address] Cardiology 01/11/25 Rosemary Moses NP [address] [place] [address] Urology 01/11/25 Jodee Umm [address] 3rd [place] [address] Gastroenterology 01/11/25 documented as of this encounter
--- OUTSIDE RECORDS SUMMARY | 2025-02-02 16:41 | XMS_ITS | Encounter Summary ---
Author Organization [employer] Address 75 [facility] 7t [place] [address] Care Team Providers Care Licensed Dispensing Optician Name Role Phone Sariah Vickers Primary Care Provider [phone] Yuri Pierre PharmD Unavailable Basilio Hall MD Unavailable [phone] Ron Preciado MD Unavailable [phone] Felipe Alanis MD Unavailable [phone] Rosemary Moses NP Unavailable May Unavailable Reason for Visit * Reason Onset Date Comments Appointment Request 09/03/2024 Encounter Details Date Type Department Care Team (Late st Contact Info) Description 09/03/2024 Telephone [facility] MEDICINE 230 [place], [place] [phone] Sariah Vickers ANP 230 [place] [address] Appointment Request Social History Tobacco Use Types [...] when making the apt. Contact pt at [phone] documented in this encounter Plan of Treatment Upcoming Encounters Date Type Department Care Team (Late st Contact Info) Description 02/03/2025 11:00 AM EST Medication Management [facility] MEDICINE 230 [place], [place] [phone] Yuri Pierre, PharmD 230 [place] [address] 04/04/2025 10:00 AM EST Telemedicine [facility] MED & PEDS 505 [place] [address] Azeb Hall, MARTIN 505 [place] [address] 05/10/2025 1:00 PM EDT Office Visit [facility] MEDICINE 230 [place] [address] Sariah Vickers ANP 230 [place] [address] documented as of this encounter Goals Goal Patient Goal Type Associated Problems Recent Progress Patient-Stated? Author Blood Pressure < 140/90 Blood Pressure 148/86(2024 2:55 PM EST) No Phanis-Aida Medina, PharmD Record Your Blood Sugar As Directed General No Phanis-Gambl Aida urbina PharmD Hemoglobin A1c < 7 Result Component 6.6( 12:59 PM EST) No Piers-Gambl Aida urbina PharmD documented as of this encounter Visit Diagnoses Not on filedocumented in this encounter Additional Health Concerns Assessment Noted Time PHQ-9 Depression Total Score: 12 024 2:58 PM EDT documented as of this encounter Care Teams Licensed Dispensing Optician Relationship Specialty Start Date End Date Sariah Vickers ANP [address] [place] [address] PCP - General Family Medicine 09/23/19 Yuri Pierre, MikeD [address] [place] [address] Pharmacist Internal Medicine 05/05/24 Basilio Hall MD [address] [place] [address] Cardiology 05/17/24 01/10/25 Ron Preciado MD [address] [place] [address] Pulmonary Disease 05/17/24 Felipe Alanis MD [address]rd [place] [address] Cardiology 01/11/25 Rosemary Moses NP [address] [place] [address] Urology 01/11/25 Jodee May [address] 3rd [place] [address] Gastroenterology 01/11/25 documented as of this encounter
--- OUTSIDE RECORDS SUMMARY | 2025-02-02 16:41 | XMS_ITS | Encounter Summary ---
Author Organization [employer] Address 75 [facility] 7t [place] [address] Care Team Providers Care Nurse Paralegal Name Role Phone Sariah Vickers KAYLEE Primary Care Provider [phone] Yuri Pierre PharmD Unavailable [phone] Basilio Hall MD Unavailable Ron Preciado MD Unavailable [phone] Felipe Alanis MD Unavailable [phone] Rosemary Moses NP Unavailable May Unavailable Reason for Visit * Reason Comments Med Refill Encounter Details Date Type Department Care Team (Late st Contact Info) Description 10/04/2024 Refill [facility] [address] [place] [address] Zakia Uriostegui, COIL TIER 230 [place] [address] Type 2 diabetes mellitus with hyperglycemia (CMS/HCC) [...] AM EST Medication Management [facility] [address] [place] [address] Yuri Pierre, PharmD 230 [place] [address] 04/04/2025 10:00 AM EST Telemedicine [facility] 505 [place] [address] Azeb Hall, MARTIN 505 [place] [address] 05/10/2025 1:00 PM EDT Office Visit [facility] [address] [place] [address] Sariah Vickers, ANP 230 [place] [address] documented as of this encounter Goals Goal Patient Goal Type Associated Problems Recent Progress Patient-Stated? Author Blood Pressure < 140/90 Blood Pressure 148/86(2024 2:55 PM EST) No Aida Ragland, PharmD Record Your Blood Sugar As Directed General No Phanis-Gambl Aida urbina, PharmD Hemoglobin A1c < 7 Result Component 6.6( 12:59 PM EST) No Phanis-Aida Medina, PharmD documented as of this encounter Visit Diagnoses Diagnosis Type 2 diabetes mellitus with hyperglycemia (HCC) documented in this encounter Additional Health Concerns Assessment Noted Time PHQ-9 Depression Total Score: 12 024 2:58 PM EDT documented as of this encounter Care Teams Nurse Paralegal Relationship Specialty Start Date End Date Sariah Vickers ANP 230 [place] [address] PCP - General Family Medicine 09/23/19 Yuri Pierre, MikeD 230 [place] [address] Pharmacist Internal Medicine 05/05/24 Basilio Hall MD 596 [place] [address] Cardiology 05/17/24 01/10/25 Ron Preciado MD 5 [place] [address] Pulmonary Disease 05/17/24 Felipe Alanis MD 11 [facility] 3rd [place] [address] Cardiology 01/11/25 Rosemary Moses NP [address] [place] [address] Urology 01/11/25 Umm Ellsworth [address] [facility] [address] 3rd Floor [place] [address] Gastroenterology 01/11/25 documented as of this encounter
--- OUTSIDE RECORDS SUMMARY | 2025-02-02 16:41 | XMS_ITS | Encounter Summary ---
Author Organization [employer] Address 75 [facility] 7t [place] [address] Care Team Providers Care Master Esthetician Name Role Phone Sariah Vickers Primary Care Provider [phone] Yuri Pierre PharmD Unavailable Basilio Hall MD Unavailable Ron Preciado MD Unavailable [phone] Felipe Alanis MD Unavailable Rosemary Moses NP Unavailable May Unavailable Reason for Visit * Reason Onset Date Comments Nurse Triage 12/24/2022 Encounter Details Date Type Department Care Team (Late st Contact Info) Description 12/24/2022 Telephone [facility] 230 [place] [address] Sariah Vickers ANP 230 [place] [address] Nurse Triage Social History Tobacco Use Types [...] the past 12 months, has t he [employer], gas, oil or water [employer] threatened to shut off services in your [...] - 12/24/2022 1:11 PM EST Called pt.via [employer] food preservation scientist [id number] Benjamin. Pt. States that she wants to [...] regimen and possible referral to a new Health And Social Care Teacher due to pt. Not having jeremie in [...] accepted this outcome Please contact pt at [phone] documented in this encounter Plan of Treatment Upcoming Encounters Date Type Department Care Team (Late st Contact Info) Description 02/03/2025 11:00 AM EST Medication Management [facility] [address] [place] [address] Yuri Pierre, Dileep [address] [place] [address] 04/04/2025 10:00 AM EST Telemedicine [facility] 505 [place], [place] [phone] Azeb Hall, RN 505 [place], [place] [phone] 05/10/2025 1:00 PM EDT Office Visit [facility] [address] [place] [address] Sariah Vickers ANP [address] [place] [address] documented as of this encounter Goals Goal [...] filedocumented in this encounter Care Teams Master Esthetician Relationship Specialty Start Date End Date Sariah Vickers ANP [address] [place] [address] PCP - General Family Medicine 09/23/19 Yuri Pierre, PharmD [address] [place] [address] [phone] Pharmacist Internal Medicine 05/05/24 Basilio Hall MD 596 [place] [address] Cardiology 05/17/24 01/10/25 Ron Preciado MD 5 [place] [address] Pulmonary Disease 05/17/24 Felipe Alanis MD 11 [facility] 3rd [place] [address] Cardiology 01/11/25 Rosemary Moses NP 10 [facility] [address] [place] [address] Urology 01/11/25 Jodee Umm 11 [facility] 3rd [place] [address] Gastroenterology 01/11/25 documented as of this encounter
--- OUTSIDE RECORDS SUMMARY | 2025-02-02 16:41 | XMS_ITS | Encounter Summary ---
Author Organization [employer] Address 75 [facility] 7t [place] [address] Care Team Providers Care Agricultural Research Engineer Name Role Phone Sariah Vickers Primary Care Provider [phone] Yuri Pierre PharmD Unavailable [phone] Basilio Hall MD Unavailable [phone] Ron Preciado MD Unavailable [phone] Felipe Alanis MD Unavailable Rosemary Moses NP Unavailable May Unavailable Reason for Visit * Reason Comments Med Refill Encounter Details Date Type Department Care Team (Late st Contact Info) Description 12/27/[address] [facility] MEDICINE 230 [place] [address] Sariah Vickers ANP 230 [place] [address] Neck pain Social History Tobacco Use Types [...] the past 12 months, has t he [employer], gas, oil or water company threatened to [...] Medication Management [facility] MED[facility]INE [address] [place] [address] Yuri Pierre, PharmD 230 [place] [address] 04/04/2025 10:[address] [facility] MED [facility] PEDS 505 [place] [address] Azeb Hall, MARTIN 505 [place] [address] 05/10/2025 1:00 PM EDT Office Visit [facility] MED[facility]INE [address] [place] [address] Sariha Vickers, ANP 230 [place] [address] documented as of this encounter Goals Goal [...] Cervicalgia documented in this encounter Care Teams Agricultural Research Engineer Relationship Specialty Start Date End Date Sariah Vickers ANP 230 [place] [address] PCP - General Family Medicine 09/23/19 Yuri Pierre, MikeD 230 [place] [address] Pharmacist Internal Medicine 05/05/24 Basilio Hall MD 596 [place] [address] Cardiology 05/17/24 01/10/25 Ron Preciado MD 5 [place] [address] Pulmonary Disease 05/17/24 Felipe Alanis MD [address]rd [place] [address] Cardiology 01/11/25 Rosemary Moses NP [address] [place] [address] Urology 01/11/25May [address] 3rd [place] [address] Gastroenterology 01/11/25 documented as of this encounter
--- OUTSIDE RECORDS SUMMARY | 2025-02-02 16:41 | XMS_ITS | Encounter Summary ---
Author Organization [employer] Address 75 [facility] 7t [place] [address] Care Team Providers Care Child Development Director Name Role Phone Sariah Vickers Primary Care Provider Yuri Pierre PharmD Unavailable [phone] Basilio Hall MD Unavailable [phone] Ron Preciado MD Unavailable [phone] Felipe Alanis MD Unavailable Rosemary Moses NP Unavailable May Unavailable Reason for Visit * Reason Comments Med Refill Encounter Details Date Type Department Care Team (Late st Contact Info) Description 03/07/[address] [facility] MEDICINE 230 [place], [place] [phone] Sariah Vickers ANP 230 [place] [address] Vertigo Social History Tobacco Use Types Packs/Day [...] the past 12 months, has t he [employer], gas, oil or water company threatened to [...] EST Medication Management [facility] MEDICINE [address] [place] [address] Yuri Pierre, PharmD 230 [place] [address] 04/04/2025 10:00 AM EST Telemedicine [facility] MED [facility] PEDS 505 [place] [address] Azeb Hall, MARTIN 505 [place] [address] 05/10/2025 1:00 PM EDT Office Visit [facility] MEDICINE [address] [place] [address] Sariah Vickers, ANP 230 [place] [address] documented as of this encounter Goals Goal [...] giddiness documented in this encounter Care Teams Child Development Director Relationship Specialty Start Date End Date Sariah Vickers ANP 230 [place] [address] PCP - General Family Medicine 09/23/19 Yuri Pierre, MikeD 230 [place] [address] Pharmacist Internal Medicine 05/05/24 Basilio Hall MD 596 [place] [address] Cardiology 05/17/24 01/10/25 Ron Preciado MD 5 [place] [address] Pulmonary Disease 05/17/24 Felipe Alanis MD [address] 3rd [place] [address] Cardiology 01/11/25 Rosemary Moses NP [address] [place] [address] Urology 01/11/25May [address] 3rd [place] [address] Gastroenterology 01/11/25 documented as of this encounter
--- OUTSIDE RECORDS SUMMARY | 2025-02-02 16:41 | XMS_ITS | Clinical Summary ---
Author Organization [employer] Address [address] [facility] [address] [place] [address] Care Team Providers Care Milliner Helper Name Role Phone Alee Anthony PAGE Primary Care Provider [phone] Yuri Pierre PharmD Unavailable Ron Preciado MD Unavailable [phone] Felipe Alanis MD Unavailable Rosemary Moses [...] mouth in the morning. Active Lactobacillus-In ulin ([facility] [employer] [facility]) capsule 023 Active Xolair 150 MG/ML [...] during the day. 025 Active Continuous Glucose Launch Leader (FreeStyle Jalil 3 [place]) device 1 each Once per day. Use [...] AND IN THE EVENING 180 tablet 1 01/22/20 25 4:00 PM EST Active Blood Glucose Monitoring Suppl (FreeStyle Lite) [...] each 1 Active Diclofenac Sodium 1 % gelIndications:C hronic bilateral low back pain, unspecified whether sciatica present APPLY 2 GRAMS TOPICALLY TO AFFECTED AREA(S) ONCE DAILY NEEDED FOR PAIN 100 g 1 Active ipratropium-albu terol (Duo-Neb) 0.5-2.5 mg/3 mL nebulizer solutionIndicati ons:Severe persistent asthma without complication (HCC) INHALE 1 AMPULE USING A NEBULIZER EVERY 6 HOURS NEEDED 90 mL 5 01/12/20 1:38 PM EST Active TRUEplus Glucose 4 g chewable tabletIndication s:Type 2 diabetes mellitus with hyperlipidemia (HCC) CHEW 4 TABLETS NEEDED FOR low blood sugar (LESS THAN 70mg/dL) 50 tablet 12 02/02/20 1:42 PM EST Active semaglutide (Ozempic) 2 MG/1.5ML solution pen-injectorIndi cations:Type 2 diabetes mellitus with hyperlipidemia (HCC) Inject 0.25 mg under the skin 1 (one) time per week. 1 each Active Continuous Glucose Sensor (Dexcom G7 Sensor) miscIndications: Type 2 diabetes mellitus with hyperlipidemia (HCC) 1 each 3 times daily. Apply 1 sensor every 10 days 3 each 01/25/20 25 1:18 PM EST 2025 Active gabapentin (Neurontin) 400 MG capsuleIndicatio ns:Chronic SI joint pain Take 1 capsule (400 mg) by mouth at bedtime. 30 capsule 2 01/22/20 25 4:00 PM EST Active amLODIPine (Norvasc) 10 MG tablet TAKE 1 TABLET BY MOUTH EVERY EVENING 90 tablet 1 Active montelukast (Singulair) 10 MG tablet TAKE 1 TABLET BY MOUTH EVERY EVENING 90 tablet 1 025 Active Glutose 15 40 % gel oral gel TAKE 15 GRAMS BY MOUTH ONCE DAILY NEEDED FOR LOW BLOOD SUGAR 112.5 g 2 02/02/20 25 1:42 PM EST 025 Active Embecta Pen Needle Lorna 32G X 4 MM miscIndications: Type 2 diabetes mellitus with hyperlipidemia (HCC) USE DIRECTED THREE TIMES DAILY 100 each 5 01/12/20 25 1:38 PM EST 025 Active traMADol (Ultram) 50 MG tabletIndication s:Cervicalgia TAKE 1 TABLET BY MOUTH EVERY TWELVE HOURS NEEDED FOR SEVERE PAIN 60 tablet 01/18/20 25 9:48 AM EST 025 Active enalapril (Vasotec) 20 MG tabletIndication s:Essential hypertension TAKE 1 TABLET BY MOUTH EVERY MORNING 30 tablet 1 025 Active acetaminophen (Tylenol) 325 MG tabletIndication s:Neck pain TAKE 1 TO 2 TABLETS BY MOUTH EVERY 6 HOURS NEEDED 120 tablet 01/20/20 25 5:01 PM EST 025 Active bacitracin-polym yxin b (Polysporin) ointment Apply topically 2 times daily. Apply to affected area daily 30 g 01/20/20 25 5:01 PM EST 025 Active Continuous Glucose Launch Leader (Dexcom G7 Launch Leader) deviceIndication s:Type 2 diabetes mellitus with hyperlipidemia (HCC) USE DIRECTED TO TEST BLOOD SUGAR EVERY DAY 1 each 025 Active BD Pen Needle Lorna U/F 32G X 4 MM miscIndications: Type 2 diabetes mellitus with hyperlipidemia (HCC) USE DIRECTED THREE TIMES DAILY 100 each 5 025 2024 Discontinued enalapril (Vasotec) 20 MG tabletIndication s:Essential hypertension TAKE 1 TABLET BY MOUTH EVERY MORNING 30 tablet 1 025 2024 Discontinued acetaminophen (Tylenol) 325 MG tabletIndication s:Neck pain TAKE 1 TO 2 TABLETS BY MOUTH EVERY 6 HOURS NEEDED 120 tablet 10/29/2 025 2024 Discontinued(R eorder (will not trigger notification to Pharmacy)) traMADol (Ultram) 50 MG tabletIndication s:Cervicalgia Take 1 tablet (50 mg) by mouth every 12 (twelve) hours if needed for severe pain. Do not start before December 17, 2024. 60 tablet 025 2024 Discontinued Continuous Glucose Launch Leader (Dexcom G7 Launch Leader) deviceIndication s:Type 2 diabetes mellitus with hyperlipidemia (HCC) 1 each Once per day for 1 day. 1 each 01/06/20 12:10 PM EST 2024 Discontinued Glutose 15 40 % gel oral gel TAKE 15 GRAMS BY MOUTH ONCE DAILY NEEDED FOR LOW BLOOD SUGAR 112.5 g 2 01/06/20 25 4:21 PM EST 2024 Discontinued sulfamethoxazole -trimethoprim (Bactrim DS) 800-160 MG tablet Take 1 tablet by mouth 2 times daily for 7 days. 14 tablet 01/20/20 5:01 PM EST 2024 Active Problems Problem Noted Date Diagnosed Date Vaginal bleeding 11/03/2024 Assessment & Plan (11/03/2024 12:59 PM EDT): Post menopausal bleeding in patient s/p hysterectomy X 1 episode On exam, source of bleeding most likely ectactic enlarged blood vessel of inner L labia Continue to monitor Apply Vaseline to area twice daily to seal bleeding vessel Will refer to lumber planer for followup if needed Return precautions for [...] currently connected with MH services through [facility]. Pt needing additional support due to [...] family. She will continue services with [facility] for OP therapy and psychiatry services. clinician will be available if needed during next medical appointment. PLAN: (check all that apply) Continue with current services (defined as services in the past 12 months) . Pt is engaged with OP therapy and psychiatry services with [facility] @ [facility] Excessive attrition of teeth, generalized 2023 Right [...] family. She will continue services with [facility] for OP therapy and psychiatry services. clinician will be available if needed during next medical appointment. PLAN: (check all that apply) Continue with current services (defined as services in the past 12 months) . Pt is engaged with OP therapy and psychiatry services with [facility] @ [facility] Fibromyalgia 07/31/2022 Asthma-COPD overlap syndrome (CMS/HCC) Right [...] for possible plantar fasciitis -referred today to forestry fire aide x ongoing discomfort -may need orthopedic shoes [...] individual therapy and psychiatry with N at [facility] Sees psych provider every two months and [...] 10/29/2022 Acute asthma exacerbation 07/31/2022 COPD exacerbation ([facility]) 07/31/2022 05/17/2024 Assessment & Plan [...] organization. Date Type Department Care Team Description 02/01/2025 Telephone [facility] [address] [place] [address] [phone] Anthony Ruiz ANP april02/01/2025 Refill [facility] [address] [place] [address] [phone] Anthony Ruiz ANP 01/24/2025 Refill [facility] [address] [place] [address] [phone] Samantha Kumar DO Type 2 diabetes mellitus with hyperlipidemia ([facility]) 01/19/2025 2:40 PM EST Office Visit [facility] [address] [place] [address] [phone] Chava Presley MD Cutaneous abscess of right lower extremity (Primary Dx); Pharyngitis, unspecified etiology; Neck pain 01/19/2025 Orders Only [facility] [address] [place] [address] [phone] Chava Presley MD 01/19/2025 Travel 01/16/2025 Refill [facility] [address] [place] [address] 38003 Anthony Ruiz ANP Essential hypertension 01/12/2025 Refill [facility] [address] [place] [address] Anthony Ruiz ANP Cervicalgia 01/11/2025 1:00 PM EST Office Visit [facility] [address] [place] [address] [phone] Anthony Ruiz ANP Type 2 diabetes mellitus with hyperlipidemia (HCC) (Primary Dx); Hypothyroidism, unspecified type; Elevated antinuclear antibody (REX) level; Transaminitis; Mixed anxiety and depressive disorder; Moderate episode of recurrent major depressive disorder (CMS/HCC) (HCC) 01/11/2025 Travel 01/09/2025 Refill [facility] [address] [place] [address] [phone] Anthony Ruiz ANP Type 2 diabetes mellitus with hyperlipidemia ([facility]/HCC) 01/07/2025 9:30 AM EST Clinical Support [address] [address] Azeb Hall RN Long-term current use of opiate analgesic (Primary Dx) 01/07/2025 Travel 01/05/2025 Refill [facility] [address] [place] [address] [phone] Anthony Ruiz ANP 12/27/2024 Travel 12/21/2024 Refill [facility] [address] [place] [address] [phone] Anthony Ruiz ANP 12/20/[address] [phone] Anthony Ruiz ANP ER Follow-up 12/20/2024 Refill [facility] [address] [place] [address] [phone] Anthony Ruiz ANP Chronic SI joint pain 12/18/2024 Orders Only GENERIC EXTERNAL DATA DEPARTMENT Provider, Generic External Data 12/17/2024 Refill [facility] [address] [place] [address] [phone] Anthony Ruiz ANP Chronic SI joint pain 12/16/2024 2:20 PM EDT Office Visit [facility] [address] [place] [address] [phone] Samantha Kumar DO Type 2 diabetes mellitus with hyperlipidemia ([facility]/HCC) (Primary Dx) 12/16/2024 Telephone [facility] [address] [place] [phone] Brittney Nava MD Triage 12/16/2024 Travel 12/15/2024 Orders Only [facility] External Provider, [facility] 12/15/2024 Telephone [facility] [address] [place] [address] Anthony Ruiz ANP Med Refill 12/13/2024 Refill [facility] [address] [place] [address] Anthony uRiz ANP Neck pain; Cervicalgia 12/12/2024 Refill [facility] [address] [place] [address] Anthony Ruiz ANP Cervicalgia 12/10/2024 Refill [facility] [address] [place] [address] [phone] Anthony Ruiz ANP Type 2 diabetes mellitus with hyperlipidemia (HCC) 12/09/2024 Telephone [facility] [address] [place] [address] [phone] Anthony Ruiz ANP Results 12/08/2024 Orders Only GENERIC EXTERNAL DATA DEPARTMENT Provider, Generic External Data 12/07/2024 Refill [facility] [address] [place] [address] [phone] Anthony Ruiz ANP 12/03/2024 10:20 AM EDT Office Visit [facility] [address] [address] Jess Coyne MD Acute bronchitis, unspecified organism (Primary Dx); Severe persistent asthma without complication (HCC) 12/02/2024 Refill [facility] [address] [place] [address] Anthony Ruiz ANP Type 2 diabetes mellitus with diabetic neuropathy, with long-term current use of insulin (HCC) 12/01/2024 Refill [facility] [address] [place] [address] Debra Faye MD Chronic bilateral low back pain, unspecified whether sciatica present 11/24/2024 Refill [facility] [address] [place] [address] [phone] Anthony Ruiz ANP Essential hypertension; Severe persistent asthma without complication (HCC) 11/23/2024 Orders Only [facility] [address] [place] [address] [phone] Anthony Ruiz ANP 11/19/2024 Refill [facility] [address] [place] [address] Chava Presley MD 11/16/2024 Refill [facility] [address] [place] [address] Anthony Ruiz ANP Type 2 diabetes mellitus with diabetic neuropathy, with long-term current use of insulin ([facility]) 11/15/2024 Travel 11/14/2024 Refill [facility] [address] [place] [address] Anthony Ruiz ANP Cervicalgia 11/12/2024 Refill [facility] [address] [place] [address] [phone] Anthony Ruiz ANP Neck pain 11/11/2024 Refill [facility] [address] [place] [address] [phone] Yogesh Gomez DMD 11/10/2024 3:30 PM EDT Immunization [facility] [address] [place] [address] [phone] Yohana Quinn RN Encounter for immunization 11/10/2024 Travel 11/09/2024 9:00 AM EDT Office Visit [facility] [address] [place] [address] [phone] Chava Presley MD Type 2 diabetes mellitus with hyperlipidemia ([facility]) (Primary Dx) 11/09/2024 Telephone [facility] [address] [place] [address] Azeb Hall RN 11/09/2024 Travel 11/08/2024 Telephone [facility] [address] [place] [phone] Anthony Ruiz ANP Nurse Triage 11/05/2024 2:30 PM EDT Office Visit [address] [address] Hallie Tapia MD Bocalvin (Primary Dx) 11/05/2024 Travel 11/03/2024 Telephone [facility] [address] [place] [phone] Anthony Ruiz ANP Results from Last 3 Months Immunizations Immunization Administration [...] Sign Reading Time Taken Comments Blood Pressure 148/86 01/19/2025 2:55 PM EST Pulse 89 01/19/2025 2:55 PM EST Temperature 37.2 C (98.9 F) 01/19/2025 2:55 PM EST Respiratory Rate 20 01/19/2025 2:55 PM EST Oxygen Saturation 95% 01/19/2025 2:55 PM EST Inhaled Oxygen Concentration - - Weight 96.9 kg (213 lb 9.6 oz) 01/19/2025 2:55 P M EST Height 160 cm (5' 3 ) 01/11/2025 12:56 PM EST Body Mass Index 37.84 01/11/2025 12:56 PM EST Plan of Treatment Upcoming Encounters Date Type Department Care Team (Late st Contact Info) Description 02/03/2025 11:00 AM EST Medication Management [facility] [address], [place] [phone] Yuri Pierre, PharmD [address] [place] [address] 04/04/2025 10:00 AM EST Telemedicine [facility] [address] [place] [address] Azeb Hall, RN [address] [place] [address] 05/10/2025 1:00 PM EDT Office Visit [facility] [address] [place] [address] Anthony Ruiz, ANP [address] [place], [place] [phone] Health Maintenance Due Date Last Done Comments [...] Dental X-Ray: Bitewings 2025 08/05/19, 09/12/2023, 08/12/2022 Diabetes: Foot Exam 01/11/2026 01/11/2025, 01/11/2025, 01/11/2025, Additional history exists Tobacco Screening 01/19/2026 01/19/2025 Dental X-Ray: Full Mouth 09/12/2026 09/12/2023, 09/18 Eye Exam 09/24/2026 09/24/2024, 08/09/2024, 09/24/2024, Additional [...] Plan Patient has chronic kidney disease No McMann, Azeb, RN Patient has chronic kidney disease Care Plan Patient has chronic kidney disease No Azeb Hall RN Weekly blood pressure task Care Plan Weekly blood pressure task No Luiaz Meade MA Weekly blood pressure task Care [...] chronic kidney disease No Kenan Clement MA Procedures Procedure Name Priority Date/Time Associated Diagnosis Comments INCISE AND DRAIN ABSCESS Routine 01/20/2025 4:05 PM EST Cutaneous abscess of right lower extremity POCT INFLUENZA A Routine 01/19/2025 4:27 PM EST Cutaneous abscess of right lower extremity POCT RAPID STREP A Routine 01/19/2025 4: 26 PM EST Cutaneous abscess of right lower extremity POCT INFLUENZA B Routine 01/19/2025 4:26 PM EST Cutaneous abscess of right lower extremity GRAM STAIN RESULT (NON ORDERABLE) Routine 01/19/2025 4:25 PM EST POCT RAPID COVID ANTIGEN Routine 01/19/2025 4:25 PM EST Cutaneous abscess of right lower extremity POCT GLYCATED HEMOGLOBIN, TOTAL Routine 01/11/2025 12:59 [...] NOW ([place]) Routine 12/08/2024 2:09 PM EDT HEPATITIS C ANTIBODY ([place] [facility]) [...] Recently Relevant to Health Maintenance Results * Incise and drain abscess (01/20/2025 4:05 PM EST) Chava Clark MD - 01/20/2025 4:05 PM EST Chava Presley MD 01/20/2025 4:09 PM Incise and drain abscess Date/Time: 01/20/2025 4:05 PM Performed by: Chava Presley MD Authorized by: Chava Presley MD Consent: Consent obtained: Written Consent given by: Patient Procedure risks and benefits discussed: Yes Patient questions answered: Yes Patient agrees, verbalizes understanding, and wants to proceed: Yes Instructions and paperwork completed: Yes [place] protocol: Procedure explained and questions answered to patient or proxy's satisfaction: yes Immediately prior to procedure, a time out was called: yes Patient identity confirmed: Verbally with patient Indications: Indications: Presumptive skin abscess Pre-procedure details: Skin preparation: Chlorhexidine with alcohol Preparation: Patient was prepped and draped in the usual sterile fashion Sedation: Sedation type: None Anesthesia: Anesthesia method: None Procedure specific details: I&D done by removing eschar in center of area of skin erythema. Small amount of purulent drainage mixed with dark blood was drained and sent for culture and sensitivity. The area was covered with bacitracin ointment and a sterile dressing. Post-procedure details: Procedure completion: Tolerated us Chava Presley MD IN CLINIC/BEDSIDE ORDERABLES Fin al Result * POCT Influenza A manually resulted (01/19/2025 4:27 PM EST) [facility] Rapid Influenza A Ag Negative Negative, Indeterminate QC Media Lot # [id number] Lot# Expiration Date 111,126 Swab Nasopharyngeal structure / Unknown 01/19/2025 4:27 PM EST us Chava Presley MD POINT OF CARE TEST ENTER/EDIT OR DERABLES Final Result * POCT Influenza B manually resulted (01/19/2025 4:26 PM EST) [facility] Rapid Influenza B Ag Negative Negative, Indeterminate QC Media Lot # [id number] Lot# Expiration Date 111,126 Swab 01/19/2025 4:26 PM EST Result Harjinder Presley MD POINT OF CARE TEST ENTER/EDIT OR DERABLES Final Result * POCT rapid strep A manually resulted (01/19/2025 4:26 PM EST) [facility] Rapid Strep A Screen Negative Negative, None Detected QC Media Lot # [id number] Lot# Expiration Date 32,727 Swab 01/19/2025 4:26 PM EST Result Harjinder Presley MD POINT OF CARE TEST ENTER/EDIT OR DERABLES Final Result * Gram Stain Result (01/19/2025 4:25 PM EST) 01/19/2025 4:25 PM EST 01/20/2025 12:26 PM EST Comment:Leg Rt Narrative [facility] - 01/22/2025 10:26 AM EST Gram stain results: 3+ polys 2+ epithelial cells 2+ red blood cells 3+ Gram-positive cocci Methicillin Res Staph Aureus Quant Org ID [id number] Methicillin Res Staph Aureus: Clindamycin <=0.25(S) Methicillin Res Staph Aureus: Erythromycin >=8(R) Methicillin Res Staph Aureus: Oxacillin >=4(R) Methicillin Res Staph Aureus: Penicillin-G >=0.5(R) Methicillin Res Staph Aureus: Tetracycline <=1(S) Methicillin Res Staph Aureus: Trimethoprim/Sulfamethoxazole <=10(S) Methicillin Res Staph Aureus: Vancomycin 1(S) Specimen Source: Leg Right us Chava Presley MD HISTORICAL/NON ORDERABLE LABS Fi nal Result [facility] [address] [place] [phone] * POCT Rapid COVID Ag (01/19/2025 4:25 PM EST) Rapid COVID Ag Negative QC Media Lot # [id number] Lot# Expiration Date [id number] Swab 01/19/2025 4:25 PM EST us Chava Presley MD POINT OF CARE TEST ENTER/EDIT OR DERABLES Final Result * (ABNORMAL) POCT Hgb A1c (01/11/2025 12:59 PM EST) Hemoglobin A1C 6.6(A) 4.0 - 5.7 % QC Media Lot # [id number] Lot# Expiration Date [id number] Blood 01/11/2025 12:5 9 PM EST Anthony PAGE POINT OF CARE TEST ENTER/EDIT OR DERABLES Final Result * POCT Glucose (01/11/2025 12:58 PM EST) Only the most recent of3 resultswithin the time period is included. Glucose Blood, POC 115 60 - 200 mg/dL QC Media Lot # [id number] Lot# Expiration Date Blood Capillary blood specimen / Unknown 01/11/2025 12:58 PM EST Anthony PAGE POINT OF CARE [...] - 01/07/2025 9:33 AM EST .UTOX cup Lot#[id number] Exp. 01/17/26 Internal Pass Control Anthony PAGE POINT OF CARE TEST ENTER/EDIT OR DERABLES Final Result * CT Abdomen Pelvis w/ Contrast (12/18/2024 9:02 AM EDT) Anatomical Region Laterality Modality Body, Pelvis, Abdomen Computed T omography 12/18/2024 9:02 AM EDT Narrative 12/18/2024 9:03 AM EDT [address] [address] [address] Scan Report Signed Patient: Nuvia Fay MR #: [id number] : 1960 Acct:[id number] Age/Sex: 64 / F ADM Date: 12/18/24 Loc: HO.ED Attending Dr: Ordering Physician: Kourtney Jones MD Date of Service: 12/18/24 Procedure(s): CT abdomen pelvis w IV con Accession Number(s): [id number] cc: Kourtney Jones MD; ANTHONY RUIZ NP Report Number: [id number]: Total DLP = 609.00 mGy-cm Reason for [...] Bliss MD on 12/18/2024 09:02:09 Dictated By: Jaesn Bliss MD Signed By: <Electronically signed by Jasen Bliss MD in OV> 12/18/24901 DD/ 1 TD/TT: 12/18/24901 Hydrology Professor: Procedure Note Donotuseinterpreter, Image - 12/18/[address] [address] [address] Scan Report Signed Patient: Nuvia Fay EMR #: [id number] : 1960cct:[id number] Age/Sex: 64 / FADM Date: 12/18/24 Loc: .ED Attending Dr: Ordering Physician: Kourtney Jones MD Date of Service: 12/18/24 Procedure(s): CT abdomen pelvis w IV con Accession Number(s): [id number] cc: Kourtney Jones MD; ANTHONY RUIZ NP Report Number: [id number]: Total DLP = 609.00 mGy-cm Reason for [...] in OV> 12/18/24901 DD/ 1 TD/TT: 12/18/24901 Hydrology Professor: [facility] External Provider IMG CT PROCEDURES Edited Result - Final * (ABNORMAL) Urinalysis, Complete, with Reflex to Culture (12/18/2024 8:21 AM EDT) Color Urine Yellow [facility] Appearance Urine Clear [facility] PH 7.0 5.0 - 9.0 [facility] Glucose Urine UA Negative Negative mg/dL [facility] Urine Blood Negative Negative [facility] Specific [place] - Urine 1.025 1.005 - 1.025 [facility] Urine Protein Negative Neg-Trace mg/dL [facility] Urine Ketones Negative Negative mg/dL [facility] Nitrite Urine Negative Negative [facility] Leukocyte Esterase Urine Small (1+)(A) Negative [facility] RBC Urine 0-2 0 - 2 /HPF [facility] Urine WBC 0-5 0 - 5 /HPF [facility] Urine Squamous Epithelial Cell 0-2 0 - 2 /HPF [facility] Urine Bacteria None Seen None Seen [facility] Hyaline Casts, Urine 0-2 0 - 2 /LPF [facility] 12/18/2024 8:21 AM EDT 12/18/2024 8:26 AM EDT Narrative [facility] - 12/18/2024 8:45 AM EDT [id number], Clean Catch us Generic External Data Provider LAB URINE ORDERAB LES Final Result Performing Organization Address City/State/[facility] Co de Phone Number [facility] [address] [place] [phone] * XR Chest 1 View (12/18/2024 7:39 AM EDT) Anatomical Region Laterality Modality Chest Radiographic Griselda ging 12/18/2024 7:39 AM EDT Narrative 12/18/2024 7:42 AM EDT [address] [address] XRay Report Signed Patient: Nuvia Fay MR #: [id number] : 1960 Acct:[id number] Age/Sex: 64 / F ADM Date: 12/18/24 Loc: .ED Attending Dr: Ordering Physician: Kourtney Jones MD Date of Service: 12/18/24 Procedure(s): XR chest 1V Accession Number(s): [id number] cc: Kourtney Jones MD; ANTHONY RUIZ NP [...] in OV> 12/18/24740 DD/ 8 TD/TT: 12/18/24738 Hydrology Professor: Procedure Note Donotuseinterpreter, Image - 12/18/2024 [place] [address] XRay Report Signed Patient: Nuvia Fay EMR #: [id number] : 1960cct:[id number] Age/Sex: 64 / FADM Date: 12/18/24 Loc: .ED Attending Dr: Ordering Physician: Kourtney Jones MD Date of Service: 12/18/24 Procedure(s): XR chest 1V Accession Number(s): [id number] cc: Kourtney Jones MD; ANTHONY RUIZ NP [...] in OV> 12/18/24740 DD/ 8 TD/TT: 12/18/24738 Hydrology Professor: [facility] External Provider IMG XR PROCEDURES Edited Result - Final * Culture, Urine, Routine (12/18/2024 12:00 AM EDT) Urine Urine specimen obtained by clean catch procedure / Unknown 12/18/2024 12/18/2024 Comment:[facility] Narrative [facility] - 12/19/2024 12:44 PM EST Urine Culture Report Result Urine Culture 10,000 to 50,000 cfu/ml Urine Culture Mixed bacterial yady characteristic of Urine Culture urogenital contamination. Specimen Source: Urine clean catch us Generic External Data Provider LAB MICROBIOLOGY - GENERAL ORDERABLES Final Result [facility] [address] [place] [phone] * US Abdomen Complete (12/15/2024 9:44 PM EDT) Anatomical Region Laterality Modality Abdomen Ultrasound 12/15/2024 9:44 PM EDT Narrative 12/15/2024 9:46 PM EDT [address] [address] Ultrasound Report Signed Patient: Nuvia Fay MR #: [id number] : 1960 Acct:[id number] Age/Sex: 64 / F ADM Date: 12/15/24 Loc: HO.US Attending Dr: Umm PERALTA Ordering Physician: Umm Ellsworth Date of Service: 12/15/24 Procedure(s): US abdomen complete Accession Number(s): [id number] cc: Umm Ellsworth; ANTHONY RUIZ NP Reason [...] in OV> 12/15/242144 DD/ 43 TD/TT: 12/15/242143 Hydrology Professor: Procedure Note Donotuseinterpreter, Image - 12/15/2024 [place] [address] Ultrasound Report Signed Patient: Nuvia Fay EMR #: [id number] : 1960cct:[id number] Age/Sex: 64 / FADM Date: 12/15/24 Loc: HO.US Attending Dr: Umm PERALTA Ordering Physician: Umm Ellsworth Date of Service: 12/15/24 Procedure(s): US abdomen complete Accession Number(s): [id number] cc: Umm Ellswroth; ANTHONY RUIZ NP Reason for Exam: K75.81 [...] in OV> 12/15/242144 DD/ 43 TD/TT: 12/15/242143 Hydrology Professor: us [facility] External Provider IMG US PROCEDURES Edited Result - Final * XR Chest 2 Views (12/08/2024 2:21 PM EDT) Anatomical Region Laterality Modality Chest Radiographic Griselda ging 12/08/2024 2:21 PM EDT Narrative 12/08/2024 2:34 PM EDT [address] [address] XRay Report Signed Patient: Nuvia Fay MR #: [id number] : 1960 Acct:[id number] Age/Sex: 64 / F ADM Date: 12/08/24 Loc: HO.ED Attending Dr: Ordering Physician: Rosangela Ventura Date of Service: 12/08/24 Procedure(s): XR chest 2V Accession Number(s): [id number] cc: Rosangela Ventura; ANTHONY RUIZ NP Reason [...] 12/08/24 1431 DD/ 1421 TD/TT: 12/08/24 1428 Hydrology Professor: Procedure Note Donotuseinterpreter, Image - 12/08/[address] [address] XRay Report Signed Patient: Nuvia Fay EMR #: [id number] : 1960cct:[id number] Age/Sex: 64 / FADM Date: 12/08/24 Loc: HO.ED Attending Dr: Ordering Physician: Rosangela Ventura Date of Service: 12/08/24 Procedure(s): XR chest 2V Accession Number(s): [id number] cc: Rosangela Ventura; ANTHONY RUIZ NP Reason [...] 12/08/24 1431 DD/ 1421 TD/TT: 12/08/24 1428 Hydrology Professor: [facility] External Provider IMG XR PROCEDURES Final Result * Influenza A B2 ID NOW (Bailey) (12/08/2024 2:09 PM EDT) IDNOW SERIAL# [id number] [facility] Influenza A Negative Negative [facility] Influenza B2 Negative Negative [facility] Influenza A B2 Note See Note [facility] Comment:The Bailey ID NOW In [...] LAB MICROBIOLOGY - GENERAL ORDERABLES Final Result [facility] [address] [place] [address] [phone] * COVID-19 ID NOW (BAILEY) (12/08/2024 2:09 PM EDT) IDNOW SERIAL# [id number] [facility] COVID-19 TEST [...] infection with other viruses.Testing facilities within the [facility] and [facility] are required to report all [...] GNOSTICS ORDERABLES Final Result Performing Organization Address City/State/[facility] Co de Phone Number [facility] [address] [place] [phone] * High Sensitivity Troponin I (12/08/2024 2:09 PM EDT) [facility] TROPONIN I HIGH SENSITIVITY <2.7 <3.5 - 17.0 ng/L [facility] Comment:The Bailey high sens itivity Troponin-I results should beused in conjunction with other diagnostic information suchas ECG, clinical observations and information, and patientsymptoms to aid in the diagnosis of [place]. 12/08/2024 2:09 PM EDT 12/08/2024 2:13 PM EDT us Generic External Data Provider LAB BLOOD ORDERAB LES Final Result Performing Organization Address [facility] de Phone Number [facility] [address] [place] [phone] * (ABNORMAL) CBC auto differential (12/08/2024 2:09 PM EDT) [facility] White Blood Count 7.6 4.8 - 10.8 X10*3/uL [facility] Red Blood Count 4.67 4.20 - 5.50 X10*6/uL [facility] Hemoglobin 14.7 12.0 - 16.0 g/dl [facility] Hematocrit 44.2 37.0 - 47.0 % [facility] Mean Corpuscular Volume 94.6 80.0 - 98.0 fL [facility] Mean Corpuscular Hemoglobin 31.5 27.0 - 33.0 pg [facility] Mean Corpuscular HGB Conc 33.3 31.0 - 35.0 g/dl [facility] Red Cell Distribution Width 12.9 11.0 - 16.0 % [facility] Platelet Count 268 160 - 400 X10*3/uL [facility] Mean Platelet Volume 9.2(L) 9.4 - 12.3 fL [facility] Neutrophils Percent Auto 82.1(H) 45 - 73 % [facility] Imm Gran Pct Auto 0.3 0.0 - 0.4 % [facility] Lymphocytes Percent Auto 16.1(L) 20 - 40 % [facility] Monocytes Percent Auto 0.8(L) 2 - 11 % [facility] Eosinophils Percent Auto 0.3 0 - 4 % [facility] Basophils Percent Auto 0.4 0 - 2 % [facility] NRBC Pct Auto 0.0 0.0 - 0.2 /100WBC [facility] Neutrophils Absolute Auto 6.2 2.0 - 8.3 x10*3/uL [facility] Imm Gran Abs Auto 0.02 0.00 - 0.03 X10*3/uL [facility] Lymphocytes Absolute Auto 1.2 1.2 - 4.9 X10*3/uL [facility] Monocytes Absolute Auto 0.1 0.1 - 1.2 X10*3/uL [facility] Eosinophils Absolute Auto 0.0 0.0 - 0.4 X10*3/uL [facility] Basophils Absolute Auto 0.0 0.0 - 0.2 X10*3/uL [facility] NRBC Abs Auto 0.000 0.0 - 0.012 X10*3/uL [facility] 12/08/2024 2:09 PM EDT 12/08/2024 2:13 PM EDT us Generic External Data Provider LAB BLOOD ORDERAB LES Final Result [facility] [address] [place] [phone] * Magnesium (12/08/2024 2:09 PM EDT) Magnesium 2.1 1.6 - 2.6 mg/dL [facility] 12/08/2024 2:09 PM EDT 12/08/2024 2:13 PM EDT us Generic External Data Provider LAB BLOOD ORDERAB LES Final Result [facility] [address] [place] [address] [phone] * (ABNORMAL) Comprehensive Metabolic Panel (12/08/2024 2:09 PM EDT) Sodium 141 135 - 145 mmol/L [facility] Potassium 3.7 3.3 - 5.1 mmol/L [facility] Chloride 109(H) 96 - 108 mmol/L [facility] Carbon Dioxide 25 22 - 29 mmol/L [facility] Anion Gap 11(L) 12 - 20 [facility] Urea Nitrogen (BUN) 13 9 - 16 mg/dL [facility] Creatinine, Serum 0.90 0.5 - 1.4 mg/dL [facility] Creatinine Clr Calc Pharmacy 64.2 [facility] Comment:Provided height and weight: 152.4 cm,92.896 kg.eGFR (calculated from the MDRD study equation) and eCrCl(calculated from the Cockcroft-Gault equation) are based ondifferent parameters and may not yield comparable results.If eCrCl result is absurd, please check patient'sheight/weight. Estimated Glomerular Filt Rate >60 [facility] Comment:Chronic Kidney Disea se: Estimated GFR < 60 mL/min/1.22g0Wogxkd Kidney Disease: Estimated GFR < 15 mL/min/1.73m2 Glucose 214(H) 60 - 115 mg/dL [facility] Calcium 9.8 8.4 - 10.2 mg/dL [facility] Bilirubin, Total 0.3 0.0 - 1.0 mg/dL [facility] Aspartate Amino Transferase 28 5 - 31 U/L [facility] Alanine Aminotransferase 16 0 - 31 U/L [facility] Total Protein 7.4 6.5 - 8.0 g/dL [facility] Albumin Level 4.2 3.5 - 5.0 g/dL [facility] Alkaline Phosphatase 101 39 - 117 U/L [facility] 12/08/2024 2:09 PM EDT 12/08/2024 2:13 PM EDT Generic External Data Provider LAB BLOOD ORDERAB LES Final Result [facility] [address] [facility] [phone] * Hepatitis C Antibody ([facility]) (08/06/2024) Hepatitis C Ab Nonreactive Blood 08/06/2024 Historical Provider MD LAB BLOOD ORDERABLES Kelsey l Result * HIV Ab/Ag ([facility]) (08/06/2024) HIV Ag/Ab Nonreactive Blood 08/06/2024 Historical Provider MD LAB BLOOD ORDERABLES Kelsey l Result * (ABNORMAL) Lipid Panel, Standard (06/18/2024 10:18 AM EDT) Triglycerides 122 <150 mg/dL [facility] Comment:Desirable Triglyceri de: less than 150 mg/dLBorderline High Triglyceride 150-199 mg/dLHigh Triglyceride: 200-499 mg/dLVery High Triglyceride: greater than or equal to 5OO mg/dL Cholesterol 216(H) <200 mg/dL [facility] Comment:Desirable Cholestero l: less than 200 mg/dLBorderline High Cholesterol: 200-239 mg/dLHigh Cholesterol: greater than 239 mg/dL LDL Cholesterol Calculated 128(H) <100 mg/dL [facility] Comment:Desirable LDL: less than 100 mg/dLNear Optimal/Above Optimal LDL: 110- 129 mg/dLBorderline High LDL: 130-159 mg/dLHigh LDL: 160-189 mg/dLVery High LDL: greater than or equal to 190 mg/dL HDL Cholesterol 64 >40 mg/dL [facility] Comment:Desirable HDL: great er than 40 mg/dL Note: This HDL assay may give artificially low results in patients with liver disease. Blood Venous blood specimen / Unknown 06/18/2024 10:18 AM EDT 06/18/2024 11:08 AM EDT us Anthony Ruiz ANP LAB BLOOD ORDERABLES Final Resul t [facility] [address] [place] [phone] [phone] * BI Mammogram Screening Tomosynthesis Bilateral (04/12/2024 1:48 PM EST) Anatomical Region Laterality Modality Breast Bilateral Mammography 04/12/2024 1:48 PM EST Narrative 04/17/2024 12:38 PM EST [address] [place] [address] Mammography Report Signed Patient: Nuvia Fay MR #: [id number] : 1960 Acct:[id number] Age/Sex: 63 / F ADM Date: 04/12/24 Loc: HO.MAMMO Attending Dr: Monica Lozano CNM Ordering Physician: Monica Lozano CNM Results: 2Beni gn Findings Date of Service: 04/12/24 Follow Up: 1 Year From [facility] Mammogram Procedure(s): MM tomosynthesis screening BI Accession Number(s): [id number] cc: Monica Lozano CNM; ANTHONY RUIZ NP [...] 04/17/24 1235 DD/ 1348 TD/TT: 04/12/24 1405 Hydrology Professor: Procedure Note Donotuseinterpreter, Image - 04/17/2024 [facility] [address] [place] [address] Mammography Report Signed Patient: Nuvia Fay EMR #: [id number] : 1960cct:[id number] Age/Sex: 63 / FADM Date: 04/12/24 Loc: HOGaryMAMMO Attending Dr: Monica Lozano CNM Ordering Physician: Monica Lozanoesults: 2Beni gn Findings Date of Service: 04/12/24Follow Up: 1 Year From Orig inal Mammogram Procedure(s): MM tomosynthesis screening BI Accession Number(s): [id number] cc: Monica Lozano CNM; ANTHONY RUIZ NP [...] 04/17/24 1235 DD/ 1348 TD/TT: 04/12/24 1405 Hydrology Professor: [facility] External Provider IMG BI PROCEDURES Edited Result - Final * Albumin, Random Urine W/Creatinine (01/02/2024 8:44 AM EST) Creatinine, Urine 47.20 mg/dL [facility] Microalbumin Urine 7.0 mg/L [facility] Microalbum Creatinine Ratio Ur 14.8 <30 ug/mg cr [facility] Comment:Albumin/Creatinine R atio Reference Ranges: Normal: < 30 ug/mg creatinine Microalbuminuria: 30 - 300 ug/mg creatinineClinical Albuminuria: > 300 ug/mg creatinine Urine (Urine, Random) 01/02/2024 8:44 AM EST 01/02/2024 11:09 AM EST Anthony Ruiz [facility] LAB URINE ORDERABLES Final Resul t [facility] [address] [place] [address] [phone] * (ABNORMAL) Colonoscopy (12/27/2021) Colonoscopy Abnormal(A ) Normal Historical Provider HEALTH MAINTENANCE Final Result * HPV E6/E7 RFLX ALFRED 16 18/45 (05/09/2020 11:19 AM EDT) HPV mRNA E6/E7 rflx Not Detected Not Detected [facility] Comment: Methodology: [employer]-Mediated Amplification This assay detects E6/E7 viral messenger RNA (mRNA) from 14 high-risk HPV types (16,18,31,33,35,39,45,51,52,56,58,59,66,68). The analytical performance characteristics of this assay have been determined by [employer]. The modifications have not been cleared or approved by the FDA. This assay has been validated pursuant to the CLIA regulations and is used for clinical purposes. For additional information, please refer to http://education.[employer]/faq/WEC352e6 (This link if provided for information/ educational purposes only.) THIS TEST WAS PERFORMED AT: [facility] [address] [place] [address] [address] FLOOR,[place] [address] HERNAN WARERN MD 05/09/2020 11:1 9 AM EDT Yohana Lu HISTORICAL/NON ORDERABLE LABS Fi nal Result [facility] Anywhere [address] from Last 3 Months or Most [...] 02/01/2025 Patient has chronic kidney disease 02/01/2025 Insurance [facility] [address] [id number] [facility] Care Teams Milliner Helper Relationship Specialty Start Date End Date Anthony Ruiz ANP [address] [place] [address] PCP - General Family Medicine 09/23/19 Yuri Pierre, MikeD [address] [place], [place] Pharmacist Internal Medicine 05/05/24 Ron Preciado MD [address] [place] [address] Pulmonary Disease 05/17/24 Felipe Alanis MD [address] 3rd [place] [address] Cardiology 01/11/25 Rosemary Moses NP [address] [place] [address] Urology 01/11/25 Jodee Umm [address] [facility] 3rd [place] [address] Gastroenterology 01/11/25
--- OUTSIDE RECORDS SUMMARY | 2025-02-02 16:41 | XMS_ITS | Encounter Summary ---
Author Organization [employer] Address [address] [facility] 7t [place] [address] Care Team Providers Care Mesh Worker Name Role Phone Sariah Vickers Primary Care Provider Yuri Pierre PharmD Unavailable [phone] Basilio Hall MD Unavailable [phone] Ron Preciado MD Unavailable [phone] Felipe Alanis MD Unavailable [phone] Rosemary Moses NP Unavailable May Unavailable Reason for Visit * Reason Comments Med Refill Encounter Details Date Type Department Care Team (Late st Contact Info) Description 02/28/2023 Refill [facility] [address] [place] [address] Sariah Vickers ANP [address] [place] [address] Cervicalgia Social History Tobacco Use Types Packs/Day [...] the past 12 months, has t he [employer], gas, oil or water company threatened to [...] Description 02/03/2025 11:00 AM EST Medication Management [facility] [address] [place] [phone] Yuri Pierre, PharmD [address] [place] [address] 04/04/2025 10:00 AM EST Telemedicine [facility] [address] [place] [address] Azeb Hall, MARTIN [address] [place] [address] 05/10/2025 1:00 PM EDT Office Visit [facility] [address] [place] [phone] Sariah Vickers, ANP [address] [place] [address] documented as of this encounter Goals Goal [...] Cervicalgia documented in this encounter Care Teams Mesh Worker Relationship Specialty Start Date End Date Sariah Vickers ANP [address] [place] [address] PCP - General Family Medicine 09/23/19 Yuri Pierre, MikeD [address] [place] [address] Pharmacist Internal Medicine 05/05/24 Basilio Hall MD [address] [place] [address] Cardiology 05/17/24 01/10/25 Ron Preciado MD [address] [place] [address] Pulmonary Disease 05/17/24 Felipe Alanis MD [address] [place] [address] Cardiology 01/11/25 Rosemary Moses NP [address] [place] [address] Urology 01/11/25May [address] 3rd [place] [address] Gastroenterology 01/11/25 documented as of this encounter
--- OUTSIDE RECORDS SUMMARY | 2025-02-02 16:41 | XMS_ITS | Encounter Summary ---
Author Organization [employer] Address [address] [facility] 7t [place] [address] Care Team Providers Care Conditioner Tumbler Operator Name Role Phone Sariah Vickers Primary Care Provider [phone] Yuri Pierre PharmD Unavailable Basilio Hall MD Unavailable Ron Preciado MD Unavailable [phone] Felipe Alanis MD Unavailable [phone] Rosemary Moses NP Unavailable May Unavailable Reason for Visit * Reason Comments Med Refill Encounter Details Date Type Department Care Team (Late st Contact Info) Description 12/17/2024 Refill [facility] [address] [place] [address] Sariah Vickers ANP [address] [place] [address] Chronic SI joint pain Social History Tobacco [...] ([facility] st Contact Info) Description 02/03/2025 11:00 AM EST Medication Management [facility] [address] [place] [phone] Yuri Pierre, PharmD [address] [place] [address] 04/04/2025 10:00 AM EST Telemedicine [facility] [address] [place] [address] Azeb Hall, RN [address] [place] [address] 05/10/2025 1:00 PM EDT Office Visit [facility] [address] [place] [address] Sariah Vickers, ANP [address] [place] [address] documented as of this encounter Goals Goal [...] documented as of this encounter Care Teams Conditioner Tumbler Operator Relationship Specialty Start Date End Date Sariah Vickers ANP [address] [place] [address] PCP - General Family Medicine 09/23/19 Yuri Pierre, PharmD [address] [place] [address] Pharmacist Internal Medicine 05/05/24 Basilio Hall MD [address] [place] [address] Cardiology 05/17/24 01/10/25 Ron Preciado MD 5 [place] [address] Pulmonary Disease 05/17/24 Felipe Alanis MD [address] [place] [address] Cardiology 01/11/25 Rosemary Moses NP [address] [facility] [address] [place] [address] Urology 01/11/25 Jodee Umm [address] [place] [address] Gastroenterology 01/11/25 documented as of this encounter
--- OUTSIDE RECORDS SUMMARY | 2025-02-02 16:41 | XMS_ITS | Encounter Summary ---
Author Organization [employer] Address [address] [facility] 7t [place] [address] Care Team Providers Care Wait[employer] Tribunal Member Name Role Phone Sariah Vickers KAYLEE Primary Care Provider Yuri Pierre PharmD Unavailable [phone] Basilio Hall MD Unavailable Ron Preciado MD Unavailable [phone] Felipe Alanis MD Unavailable Rosemary Moses NP Unavailable May Unavailable Reason for Visit * Reason Comments Med Refill Encounter Details Date Type Department Care Team (Late st Contact Info) Description 03/04/2023 Refill [facility] [address] [place], [place] [phone] Brittney Nava MD [address] [place], [place] [phone] Social History Tobacco Use Types Packs/Day Years [...] the past 12 months, has t he [employer], gas, oil or water [employer] threatened to shut off services in your [...] Description 02/03/2025 11:00 AM EST Medication Management [facility] [address] [place] [address] Yuri Pierre, PharmD [address] [place] [address] 04/04/2025 10:00 AM EST Telemedicine [facility] [address] [place] [address] Azeb Hall, MARTIN [address] [place] [address] 05/10/2025 1:00 PM EDT Office Visit [facility] [address] [place] [address] Sariah Vickers, ANP [address] [place] [address] documented as of this encounter Goals Goal [...] on filedocumented in this encounter Care Teams [employer] Tribunal Member Relationship Specialty Start Date End Date Sariah Vickers ANP [address] [place] [address] PCP - General Family Medicine 09/23/19 Yuri Pierre, MikeD [address] [place] [address] Pharmacist Internal Medicine 05/05/24 Basilio Hall MD [address] [place] [address] Cardiology 05/17/24 01/10/25 Ron Preciado MD 5 [place] [address] Pulmonary Disease 05/17/24 Felipe lAanis MD [address] 3rd [place] [address] Cardiology 01/11/25 Rosemary Moses NP [address] [place] [address] Urology 01/11/25May [address] 3rd [place] [address] Gastroenterology 01/11/25 documented as of this encounter
--- OUTSIDE RECORDS SUMMARY | 2025-02-02 16:42 | XMS_ITS | Encounter Summary ---
Author Organization [employer] Address [address] [facility] 7t [place] [address] Care Team Providers Care Horse Trekking Guide Name Role Phone Sariah Vickers Primary Care Provider Yuri Pierre PharmD Unavailable [phone] Basilio Hall MD Unavailable Ron Preciado MD Unavailable [phone] Felipe Alanis MD Unavailable [phone] Rosemary Moses NP Unavailable May Unavailable Reason for Visit * Reason Comments Med Refill Encounter Details Date Type Department Care Team (Late st Contact Info) Description 07/12/[address] [facility] [address] [place], [place] [phone] Sariah Vickers ANP [address] [place] [address] Social History Tobacco Use Types Packs/Day Years [...] 02/03/2025 11:00 AM EST Medication Management [facility] [address] [place] [phone] Yuri Pierre, PharmD [address] [place] [address] 04/04/2025 10:[address] [facility] [address] [place] [address] Azeb Hall, RN [address] [place] [address] 05/10/2025 1:00 PM EDT Office Visit [facility] [address] [place] [address] Sariah Vickers ANP [address] [place] [address] documented as of this encounter Visit Diagnoses Not on filedocumented in this encounter Care Teams Horse Trekking Guide Relationship Specialty Start Date End Date Sariah Vickers ANP [address] [place] [address] PCP - General Family Medicine 09/23/19 Yuri Pierre, PharmD [address] [place] [address] Pharmacist Internal Medicine 05/05/24 Basilio Hall MD [address] [place] [address] Cardiology 05/17/24 01/10/25 Ron Preciado MD [address] [place] [address] [place] [address] Pulmonary Disease 05/17/24 Felipe Alanis MD [address] 3rd [place] [address] Cardiology 01/11/25 Rosemary Moses NP [address] [place] [address] Urology 01/11/[address] 3rd [place] [address] Gastroenterology 01/11/25 documented as of this encounter
--- OUTSIDE RECORDS SUMMARY | 2025-02-02 16:42 | XMS_ITS | Encounter Summary ---
Author Organization [employer] Address 75 [facility] 7t [place] [address] Care Team Providers Care Press Helper Name Role Phone Sariah Vickers Primary Care Provider Yuri Pierre PharmD Unavailable Basilio Hall MD Unavailable Ron Preciado MD Unavailable [phone] Felipe Alanis MD Unavailable Rosemary Moses NP Unavailable May Unavailable Reason for Visit * Reason Onset Date Comments Referral 05/17/2022 Encounter Details Date Type Department Care Team (Late st Contact Info) Description 05/17/2022 Telephone [facility] [address] [place], [place] [phone] Sariah Vickers ANP 230 [place] [address] Referral Social History Tobacco Use Types Packs/Day [...] guide to vertigo. Please contact pt at [phone] documented in this encounter Plan of Treatment Upcoming Encounters Date Type Department Care Team (Late st Contact Info) Description 02/03/2025 11:00 AM EST Medication Management [facility] [address] [place] [address] Yuri Pierre PharmD [address] [place] [address] 04/04/2025 10:00 AM EST Telemedicine [facility] 505 [place] [address] Azeb Hall, MARTIN 505 [place] [address] 05/10/2025 1:00 PM EDT Office Visit [facility] [address] [place] [address] Sariah Vickers ANP [address] [place] [address] documented as of this encounter Visit Diagnoses Not on filedocumented in this encounter Care Teams Press Helper Relationship Specialty Start Date End Date Sariah Vickers ANP [address] [place] [address] PCP - General Family Medicine 09/23/19 Yuri Pierre, MikeD [address] [place] [address] Pharmacist Internal Medicine 05/05/24 Basilio Hall MD 596 [place] [address] Cardiology 05/17/24 01/10/25 Ron Preciado MD 5 [place] [address] Pulmonary Disease 05/17/24 Felipe Alanis MD 11 [facility] 3rd [place] [address] Cardiology 01/11/25 Rosemary Moses NP 10 [facility] [address] [place] [address] Urology 01/11/25 Umm Ellsworth 11 [facility] 3rd [place] [address] Gastroenterology 01/11/25 documented as of this encounter
--- OUTSIDE RECORDS SUMMARY | 2025-02-02 16:42 | XMS_ITS | Encounter Summary ---
Author Organization [employer] Address 75 [facility] 7t [place] [address] Care Team Providers Care Contact Lens Blocker Name Role Phone Sariah Vickers Primary Care Provider Yuri Pierre PharmD Unavailable [phone] Basilio Hall MD Unavailable Ron Preciado MD Unavailable [phone] Felipe Alanis MD Unavailable Rosemary Moses NP Unavailable May Unavailable Reason for Visit * Reason Comments Med Refill Encounter Details Date Type Department Care Team (Late st Contact Info) Description 07/10/2022 Refill [facility] 230 [place] [address] Sariah Vickers ANP 230 [place] [address] Vertigo Social History Tobacco Use Types Packs/Day [...] EST Medication Management [facility] [address] [place] [address] Yuri Pierre, PharmD [address] [place] [address] 04/04/2025 10:00 AM EST Telemedicine [facility] 505 [place] [address] Azeb Hall, RN 505 [place] [address] 05/10/2025 1:00 PM EDT Office Visit [facility] [address] [place] [address] Sariah Vickers ANP [address] [place] [address] documented as of this encounter Visit Diagnoses Diagnosis Vertigo Dizziness and giddiness documented in this encounter Care Teams Contact Lens Blocker Relationship Specialty Start Date End Date Sariah Vickers ANP [address] [place] [address] PCP - General Family Medicine 09/23/19 Yuri Pierre, PharmD [address] [place] [address] Pharmacist Internal Medicine 05/05/24 Basilio Hall MD 596 [place] [address] Cardiology 05/17/24 01/10/25 Ron Preciado MD [address] [place] [address] Pulmonary Disease 05/17/24 Felipe Alanis MD [address] 3rd [place] [address] Cardiology 01/11/25 Rosemary Moses NP [address] [place] [address] Urology 01/11/[address] 3rd [place] [address] Gastroenterology 01/11/25 documented as of this encounter
--- OUTSIDE RECORDS SUMMARY | 2025-02-02 16:42 | XMS_ITS | Encounter Summary ---
Author Organization [employer] Address 75 [facility] 7t [place] [address] Care Team Providers Care Communications Director Name Role Phone Sariah Vickers Primary Care Provider [phone] Yuri Pierre PharmD Unavailable Basilio Hall MD Unavailable [phone] Ron Preciado MD Unavailable [phone] Felipe Alanis MD Unavailable [phone] Rosemary Moses NP Unavailable May Unavailable Reason for Visit * Reason Comments Med Refill Encounter Details Date Type Department Care Team (Late st Contact Info) Description 08/14/2022 Refill [facility] [address] [place] [address] Sariah Vickers ANP 230 [place] [address] Severe persistent asthma without complication Social History [...] 02/03/2025 11:00 AM EST Medication Management [facility] [address] [place] [address] Yuri Pierre, PharmD [address] [place] [address] 04/04/2025 10:00 AM EST Telemedicine [facility] 505 [place] [address] Azeb Hall, MARTIN 505 [place] [address] 05/10/2025 1:00 PM EDT Office Visit [facility] [address] [place] [address] Sariah Vickers ANP 230 [place] [address] documented as of this encounter Visit Diagnoses Diagnosis Severe persistent asthma without complication (HCC) documented in this encounter Care Teams Communications Director Relationship Specialty Start Date End Date Sariah Vickers ANP [address] [place] [address] PCP - General Family Medicine 09/23/19 Yuri Pierre, PharmD [address] [place] [address] Pharmacist Internal Medicine 05/05/24 Basilio Hall MD [address] [place] [address] Cardiology 05/17/24 01/10/25 Ron Preciado MD [address] [place] [address] Pulmonary Disease 05/17/24 Felipe Alanis MD [address] 3rd [place] [address] Cardiology 01/11/25 Rosemary Moses NP [address] [place] [address] Urology 01/11/[address] 3rd [place] [address] Gastroenterology 01/11/25 documented as of this encounter
--- OUTSIDE RECORDS SUMMARY | 2025-02-02 16:42 | XMS_ITS | Encounter Summary ---
Author Organization [employer] Address 75 [facility] 7t [place] [address] Care Team Providers Care Judge Clerk Name Role Phone Sariah Vickers Primary Care Provider [phone] Yuri Pierre PharmD Unavailable [phone] Basilio Hall MD Unavailable Ron Preciado MD Unavailable [phone] Felipe Alanis MD Unavailable [phone] Rosemary Moses NP Unavailable May Unavailable Reason for Visit * Reason Comments Med Refill Encounter Details Date Type Department Care Team (Late st Contact Info) Description 05/21/[address] [facility] 230 [place] [address] Sariah Vickers ANP 230 [place] [address] Neck pain Social History Tobacco Use Types [...] the past 12 months, has t he [employer], gas, oil or water company threatened to [...] EST Medication Management [facility] [address] [place] [address] Yuri Pierre, PharmD 230 [place] [address] 04/04/2025 10:[address] [facility] 505 [place] [address] Azeb Hall, RN 505 [place] [address] 05/10/2025 1:00 PM EDT Office Visit [facility] [address] [place] [address] Sariah Vickers ANP [address] [place] [address] documented as of this encounter Goals Goal Patient Goal Type Associated Problems Recent Progress Patient-Stated? Author Blood Pressure < 140/90 Blood Pressure 148/86(2024 2:55 PM EST) No Piers-Gambl e, Aida, PharmD Record Your Blood Sugar As Directed General No Piers-Gambl e, Aida, PharmD Hemoglobin A1c < 7 Result Component 6.6( 12:59 PM EST) No Piers-Gambl e, Aida, PharmD documented as of this encounter Visit Diagnoses Diagnosis Neck pain Cervicalgia documented in this encounter Care Teams Judge Clerk Relationship Specialty Start Date End Date Sariah Vickers ANP [address] [place] [address] PCP - General Family Medicine 09/23/19 Yuri Pierre, MikeD [address] [place] [address] Pharmacist Internal Medicine 05/05/24 Basilio Hall MD 596 [place] [address] Cardiology 05/17/24 01/10/25 Ron Preciado MD 5 [place] [address] Pulmonary Disease 05/17/24 Felipe Alanis MD [address]rd [place] [address] Cardiology 01/11/25 Rosemary Moses NP [address] [place] [address] Urology 01/11/25 Umm Ellsworth [address]rd [place] [address] Gastroenterology 01/11/25 documented as of this encounter
--- OUTSIDE RECORDS SUMMARY | 2025-02-02 16:42 | XMS_ITS | Encounter Summary ---
Author Organization [employer] Address 75 [facility] 7t [place] [address] Care Team Providers Care Outreach Nurse Name Role Phone Sariah Vickers Primary Care Provider [phone] Yuri Pierre PharmD Unavailable Basilio Hall MD Unavailable Ron Preciado MD Unavailable [phone] Felipe Alanis MD Unavailable Rosemary Moses NP Unavailable May Unavailable Reason for Visit * Reason Comments Med Refill Encounter Details Date Type Department Care Team (Late st Contact Info) Description 06/30/2023 Refill [facility] 230 [place] [address] Sariah Vickers ANP 230 [place] [address] Neck pain Social History Tobacco Use Types [...] [facility] [address] [place] [address] Yuri Pierre, PharmD 230 [place] [address] 04/04/2025 10:00 AM EST Telemedicine [facility] 505 [place] [address] Azeb Hall, RN 505 [place] [address] 05/10/2025 1:00 PM EDT Office Visit [facility] [address] [place] [address] Sariah Vickers, KAYLEE 230 [place] [address] documented as of this encounter Goals Goal [...] documented as of this encounter Care Teams Outreach Nurse Relationship Specialty Start Date End Date Sariah Vickers ANP 230 [place] [address] PCP - General Family Medicine 09/23/19 Yuri Pierre, MikeD [address] [place] [address] Pharmacist Internal Medicine 05/05/24 Basilio Hall MD 596 [place] [address] Cardiology 05/17/24 01/10/25 Ron Preciado MD 5 [place] [address] Pulmonary Disease 05/17/24 Felipe Alanis MD [address] [place] [address] Cardiology 01/11/25 Rosemary Moses NP [address] [place] [address] Urology 01/11/25 Umm Ellsworth [address]rd [place] [address] Gastroenterology 01/11/25 documented as of this encounter
--- OUTSIDE RECORDS SUMMARY | 2025-02-02 16:42 | XMS_ITS | Encounter Summary ---
Author Organization [employer] Address 75 [facility] 7t [place] [address] Care Team Providers Care Sweater Designer Name Role Phone Sariah Vickers Primary Care Provider Yuri Pierre PharmD Unavailable Basilio Hall MD Unavailable [phone] Ron Preciado MD Unavailable [phone] Felipe Alanis MD Unavailable [phone] Rosemary Moses NP Unavailable May Unavailable Reason for Visit * Reason Comments Med Refill Encounter Details Date Type Department Care Team (Late st Contact Info) Description 07/17/2022 Refill [facility] 230 [place] [address] Sariah Vickers ANP 230 [place] [address] Neck pain Social History Tobacco Use Types [...] Medication Management [facility] [address] [place] [address] Yuri Pierre, PharmD [address] [place] [address] 04/04/2025 10:00 AM EST Telemedicine [facility] 505 [place] [address] Azeb Hall, RN 505 [place] [address] 05/10/2025 1:00 PM EDT Office Visit [facility] [address] [place] [address] Sariah Vickers ANP [address] [place] [address] documented as of this encounter Visit Diagnoses Diagnosis Neck pain Cervicalgia documented in this encounter Care Teams Sweater Designer Relationship Specialty Start Date End Date Sariah Vickers ANP [address] [place] [address] PCP - General Family Medicine 09/23/19 Yuri Pierre, PharmD [address] [place] [address] Pharmacist Internal Medicine 05/05/24 Basilio Hall MD 596 [place] [address] Cardiology 05/17/24 01/10/25 Ron Preciado MD [address] [place] [address] Pulmonary Disease 05/17/24 Felipe Alanis MD [address] 3rd [place] [address] Cardiology 01/11/25 Rosemary Moses NP [address] [place] [address] Urology 01/11/25 Jodee May [address] 3rd [place] [address] Gastroenterology 01/11/25 documented as of this encounter
--- OUTSIDE RECORDS SUMMARY | 2025-02-02 16:42 | XMS_ITS | Encounter Summary ---
Author Organization [employer] Address 75 [facility] 7t [place] [address] Care Team Providers Care Treater Name Role Phone Sariah Vickers Primary Care Provider [phone] Yuri Pierre PharmD Unavailable [phone] Basilio Hall MD Unavailable Ron Preciado MD Unavailable [phone] Felipe Alanis MD Unavailable [phone] Rosemary Moses NP Unavailable May Unavailable Reason for Visit * Reason Comments Med Refill Encounter Details Date Type Department Care Team (Late st Contact Info) Description 05/23/2024 Refill [facility] [address] [place] [address] Sariah Vickers ANP 230 [place] [address] Cervicalgia Social History Tobacco Use Types Packs/Day [...] 11:00 AM EST Medication Management [facility] [address] [place] [address] Yuri Pierre, PharmD 230 [place] [address] 04/04/2025 10:00 AM EST Telemedicine [facility] 505 [place] [address] Azeb Hall, RN 505 [place] [address] 05/10/2025 1:00 PM EDT Office Visit [facility] [address] [place] [address] Sariah Vickers, ANP 230 [place] [address] documented as of this encounter Goals Goal [...] documented as of this encounter Care Teams Treater Relationship Specialty Start Date End Date Sariah Vickers ANP 230 [place] [address] PCP - General Family Medicine 09/23/19 Yuri Pierre, MikeD [address] [place] [address] Pharmacist Internal Medicine 05/05/24 Basilio Hall MD 596 [place] [address] Cardiology 05/17/24 01/10/25 Ron Preciado MD 5 [place] [address] Pulmonary Disease 05/17/24 Felipe Alanis MD [address] [place] [address] Cardiology 01/11/25 Rosemary Moses NP [address] [place] [address] Urology 01/11/25 Jodee Umm [address]rd [place] [address] Gastroenterology 01/11/25 documented as of this encounter
--- OUTSIDE RECORDS SUMMARY | 2025-02-02 16:42 | XMS_ITS | Encounter Summary ---
Author Organization [employer] Address 75 [facility] 7t [place] [address] Care Team Providers Care Senior Commercial Loan Officer Name Role Phone Sariah Vickers Primary Care Provider Yuri Pierre PharmD Unavailable [phone] Basilio Hall MD Unavailable [phone] Ron Preciado MD Unavailable [phone] Felipe Alanis MD Unavailable Rosemary Moses NP Unavailable May Unavailable Reason for Visit * Reason Comments Med Refill Encounter Details Date Type Department Care Team (Late st Contact Info) Description 05/09/2023 Refill [facility] 230 [place] [address] Sariah Vickers ANP 230 [place] [address] High cholesterol Social History Tobacco Use Types [...] the past 12 months, has t he [employer], gas, oil or water company threatened to [...] Description 02/03/2025 11:00 AM EST Medication Management [facility] [address] [place] [address] Yuri Pierre, PharmD 230 [place] [address] 04/04/2025 10:00 AM EST Telemedicine [facility] 505 [place] [address] Azeb Hall, MARTIN 505 [place] [address] 05/10/2025 1:00 PM EDT Office Visit [facility] [address] [place] [address] Sariah Vickers, ANP 230 [place] [address] documented as of this encounter Goals Goal Patient Goal Type Associated Problems Recent Progress Patient-Stated? Author Blood Pressure < 140/90 Blood Pressure 148/86(2024 2:55 PM EST) Veronica Ernstsa, PharmBear Record Your Blood Sugar As Directed General No Aida Ragland PharmD Hemoglobin A1c < 7 Result Component 6.6( 5 12:59 PM EST) No Aida Ragland PharmD documented as of this encounter Visit Diagnoses Diagnosis High cholesterol Pure hypercholesterolemia documented in this encounter Care Teams Senior Commercial Loan Officer Relationship Specialty Start Date End Date Sariah Vickers ANP 230 [place] [address] PCP - General Family Medicine 09/23/19 Yuri Pierre, MikeD 230 [place] [address] Pharmacist Internal Medicine 05/05/24 Basilio Hall MD 596 [place] [address] Cardiology 05/17/24 01/10/25 Ron Preciado MD 5 [place] [address] Pulmonary Disease 05/17/24 Felipe Alanis MD [address] [place] [address] Cardiology 01/11/25 Rosemary Moses NP [address] [place] [address] Urology 01/11/25May [address] 3rd [place] [address] Gastroenterology 01/11/25 documented as of this encounter
--- OUTSIDE RECORDS SUMMARY | 2025-02-02 16:45 | XMS_ITS | Encounter Summary ---
Author Organization [employer] Address 75 [facility] 7t [place] [address] Care Team Providers Care Field Foreman Name Role Phone Sariah Vickers Primary Care Provider [phone] Yuri Pierre PharmD Unavailable Basilio Hall MD Unavailable Ron Preciado MD Unavailable [phone] Felipe Alanis MD Unavailable Rosemary Moses NP Unavailable May Unavailable Reason for Visit * Reason Onset Date Comments Med Refill Durable Medical Equipment 07/15/2023 Foam M attress/Raised Toilet Seat Encounter Details Date Type Department Care Team (Late st Contact Info) Description 07/15/2023 Refill [facility] 230 [place], [place] [phone] Sariah Vickers ANP 230 [place] [address] Neck pain Social History Tobacco Use Types [...] Please see request sent via email by [facility] Parking Meter Collector Arlin Baker. Please Advise. Good morning, Our [...] Care Team (Fish tidwell Contact Info) Description 02/03/2025 11:00 AM EST Medication Management [facility] 230 [place] [address] Yuri Pierre PharmD 230 [place], [place] 04/04/2025 10:00 AM EST Telemedicine [facility] 505 [place], [place] [phone] Azeb Hall, RN 505 [place] [address] 05/10/2025 1:00 PM EDT Office Visit [facility] [address] [place] [address] Sariah Vickers ANP 230 [place], [place] documented as of this encounter Goals Goal Patient Goal Type Associated Problems Recent Progress Patient-Stated? Author Blood Pressure < 140/90 Blood Pressure 148/86(2024 2:55 PM EST) No Phanis-Aida Medina, PharmD Record Your Blood Sugar As Directed General No Phanis-Aida Medina, PharmD Hemoglobin A1c < 7 Result Component 6.6( 12:59 PM EST) No Phanis-GambAida buck, PharmD documented as of this encounter Visit Diagnoses Diagnosis Neck pain Cervicalgia documented in this encounter Additional Health Concerns Assessment Noted Time PHQ-9 Depression Total Score: 2 06/23/19 24 2:10 PM EDT documented as of this encounter Care Teams Field Foreman Relationship Specialty Start Date End Date Sariah Vickers ANP [address] [place] [address] PCP - General Family Medicine 09/23/19 Yuri Pierre, Dileep [address] [place] [address] Pharmacist Internal Medicine 05/05/24 Basilio Hall MD [address] [place] [address] Cardiology 05/17/24 01/10/25 Ron Preciado MD 5 [place] [address] Pulmonary Disease 05/17/24 Felipe Alanis MD [address] 3rd [place] [address] Cardiology 01/11/25 Rosemary Moses NP [address] [place] [address] Urology 01/11/25 Umm Ellsworth 11 [facility] 3rd [place] [address] Gastroenterology 01/11/25 documented as of this encounter
== END 2025-02-02 12:42 | disposition home or self-care (01) ==
LOC: HO.HMGAL 12:37
PROVIDERS: PCP Nurse Practitioner Primary Care; Visit Provider Registered Nurse Emergency
DX: J30.89 Other allergic rhinitis (principal)
CPT/HCPCS: 95117; 95165

== ENCOUNTER 2025-02-03 13:34 | Outpatient (AMB) | payer OTHER, SELFPAY ==
[2025-02-03 13:37] VITALS: BP 122/74; PULSE 89; O2SAT 96; BMI 33.2
--- NOTE | 2025-02-03 13:37 | MHC.OFFVIS ---
Vital Signs 02/03/25 13:37 Height 5 ft 7 in Weight 212 lb BMI 33.2 BP 122/74 Blood Pressure Location Rt brachial Position Sitting Pulse 89 Pulse Source Pulse Oximeter Pulse Oximetry (%) 96 Oxygen Delivery Method Room Air Intake Visit Reasons: COPD Allergies Fish Containing Products Allergy (Intermediate, Verified 02/03/25 13:44) Swelling vancomycin Allergy (Intermediate, Verified 02/03/25 13:44) Rash aspirin (Aspirin) Allergy (Mild, Verified 02/03/25 13:44) ITCHY THROAT azithromycin Allergy (Unknown, Verified 02/03/25 13:44) Unknown naproxen Allergy (Unknown, Verified 02/03/25 13:44) Unknown simvastatin Allergy (Unknown, Verified 02/03/25 13:44) Unknown onion (ONION) Adverse Reaction (Mild, Verified 02/03/25 13:44) RED FACE HPI HPI COPD: Details: 63-year-old lady, former 30+ pack-year smoker, quit 2014 followed for severe persistent allergic asthma/COPD overlap syndrome and environmental allergies. She continues on Wixela, Spiriva, albuterol MDI, and Xolair with good symptomatic control. She currently complains of bronchitic symptoms particularly symptomatic with cough productive of yellowish sputum. [facility] Medical History Uncontrolled type 2 diabetes mellitus with hyperglycemia, with long-term current use of insulin Severe persistent asthma NIDDY (non-insulin dependent diabetes mellitus in young) COPD (chronic obstructive pulmonary disease) Cellulitis of labia Pulmonary hypertension, pre-operative cardiovascular examination Arthritis Thyroid disease Bilateral renal cysts Right bundle branch block Dental calculus Depression Varicose veins of left lower extremity Ectatic aorta Paresthesia Paresis of one side of face Neck pain Insomnia disorder, with non-sleep disorder mental comorbidity Increased immunoglobulin Constipation Aneurysm of left internal carotid artery Abnormal ultrasound of kidney Type 2 diabetes mellitus History of kidney stones Abnormal finding on ultrasound Tear of medial meniscus of left knee Leg pain Kidney stone on left side MOCK (dyspnea on exertion) Patellofemoral arthritis of left knee Trochanteric bursitis of right hip COVID-19 Carpal tunnel syndrome of right wrist Renal calculi UTI (urinary tract infection) Allergic rhinitis Anxiety and depression Fibromyalgia HTN (hypertension) PTSD (post-traumatic stress disorder) Preop pulmonary/respiratory exam Vertigo Diabetes Asthma Chest pain Tubular adenoma of colon Vulvovaginitis Acute asthma exacerbation Candidiasis of mouth and esophagus Bronchitis Spondylosis of cervical region without myelopathy or radiculopathy Bronchitis COPD exacerbation Yeast infection Papanicolaou smear for cervical cancer screening Bilateral hand pain Bilateral knee pain Low vitamin D level Dry mouth Environmental allergies Non-toxic multinodular goiter Hypothyroidism Type 2 diabetes mellitus with hyperglycemia DVT (deep venous thrombosis) Menopausal state Cocaine abuse Surgical History Encounter for postoperative wound check Status post umbilical hernia repair, follow-up exam Carbuncle and furuncle of buttock Carbuncle of abdominal wall Umbilical hernia Umbilical hernia Hx of carpal tunnel repair History of esophagogastroduodenoscopy (EGD) H/O colonoscopy with polypectomy History of selective injection of anesthetic agent around lumbar nerve root Hx of right breast biopsy History of hysterectomy History of lithotripsy Family History Father No problems noted. 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 Female Reproductive History Menstrual Age of Menarche: 10 Review of Systems Const Denies daytime sleepiness, Denies excessive sweating, Denies fatigue, Denies fever(s), Denies lethargy, Denies malaise, Denies night sweats, Denies snoring and Denies weight loss Eyes Denies blurry vision and Denies itchy eyes ENT Denies nasal congestion, Denies post nasal drip, Denies sinus pain, Denies sinus pressure and Denies other ( Thrush) Card Denies chest pain, Denies pedal edema, Denies dyspnea, Denies orthopnea and Denies paroxysmal nocturnal dyspnea Resp Reports cough, Denies hemoptysis, Reports excessive phlegm production, Denies dyspnea, Denies snoring and Denies wheezing GI Denies abdominal pain and Denies heartburn Musc Denies myalgias, Denies arthralgias and Denies joint swelling Skin/Breast Denies rash Neuro Denies memory loss and Denies seizure-like activity Psych Denies abnormal sleep pattern, Denies anxiety and Denies memory loss Endo Denies excessive sweating, Denies fatigue and Denies heat intolerance Bruno/Lymph Denies easy bruising Aller/Immun Denies itchy eyes, Denies seasonal rhinorrhea and Denies wheezing Physical Exam Vital Signs: Last Vital Signs Pulse 89 02/03/25 13:37 BP 122/74 02/03/25 13:37 Pulse Ox 96 02/03/25 13:37 Oxygen Delivery Method Room Air 02/03/25 13:37 BMI result Body Mass Index 33.2 Const General: no acute distress and alert Nutritional Appearance: not obese Orientation/consciousness: Other orientation findings ( oriented) HEENT Head: Yes atraumatic Eyes General: appearance normal, both eyes and all related structures Sclerae: sclerae normal EOM: EOMs intact bilaterally Neck Neck: Yes supple Lymphatic: no lymphadenopathy noted Resp Effort & Inspection: normal respiratory effort and no use of accessory muscles Auscultation: clear to auscultation bilaterally Cardio Rate: regular rate Rhythm: regular rhythm Heart sounds: no gallops, no murmurs and no rubs Skin General skin exam: other ( warm) Extrem General: No clubbing, No cyanosis and No edema Assessment & Plan Assessment & Plan (1) Asthma-COPD overlap syndrome: Code(s): J44.89 - Other specified chronic obstructive pulmonary disease Category: Medical Plan: Baseline controlled on Xolair, Advair, Spiriva, duo nebs, and albuterol MDI. Continue current regimen. Now with bronchitic exacerbation, will treat with a course of Levaquin. (2) Environmental allergies: Code(s): Z91.09 - Other allergy status, other than to drugs and biological substances Category: Medical Plan: Well controlled on Xolair and Singulair. Continue current regimen. (3) Smoker: Code(s): F17.200 - Nicotine dependence, unspecified, uncomplicated Category: Social Hx Plan: Lung cancer screening CT chest results from September of 2024 reviewed, no worrisome nodules. Continue with yearly screening, next in September of 2025. Medications: Refilled levofloxacin 750 mg PO Q24H 10 tabs 0RF Coding Level of Care Code Est Pt Level 4 (78726) Diagnoses Asthma-COPD overlap syndrome J44.89 Environmental allergies Z91.09 Smoker F17.200
--- OUTSIDE RECORDS SUMMARY | 2025-02-03 17:43 | XMS_ITS | Encounter Summary ---
Author Organization [employer] Address 75 [facility] 7t [place] [address] Care Team Providers Care Can Handler Name Role Phone Saraih Vickers Primary Care Provider [phone] Yuri Pierre PharmD Unavailable [phone] Basilio Hall MD Unavailable Ron Preciado MD Unavailable [phone] Felipe Alanis MD Unavailable [phone] Rosemary Moses NP Unavailable May Unavailable Reason for Visit * Reason Comments Med Refill Encounter Details Date Type Department Care Team (Late st Contact Info) Description 02/06/2022 Refill [facility] MEDICINE 230 [place] [address] Sariah Vickers ANP 230 [place] [address] Social History Tobacco Use Types Packs/Day Years [...] Upcoming Encounters Date Type Department Care Team ([facility] st Contact Info) Description 04/04/2025 10:00 AM EST Telemedicine [facility] CHC MED & PEDS [address] [place] [address] Azeb Hall, MARTIN 505 [place] [address] 05/10/2025 1:00 PM EDT Office Visit [facility] MEDICINE [address] [place] [address] Sariah Vickers ANP [address] [place] [address] documented as of this encounter Visit Diagnoses Not on filedocumented in this encounter Care Teams Can Handler Relationship Specialty Start Date End Date Sariah Vickers ANP [address] [place] [address] PCP - General Family Medicine 09/23/19 Yuri Pierre, MikeD [address] [place] [address] Pharmacist Internal Medicine 05/05/24 02/03/25 Basilio Hall MD [address] [place] [address] Cardiology 05/17/24 01/10/25 Ron Preciado MD 5 [place] [address] Pulmonary Disease 05/17/24 Felipe Alanis MD 11 [facility] 3rd [place] [address] Cardiology 01/11/25 Rosemary Moses NP [address] [place] [address] Urology 01/11/[address]mm [address] 3rd [place] [address] Gastroenterology 01/11/25 documented as of this encounter
--- OUTSIDE RECORDS SUMMARY | 2025-02-03 17:43 | XMS_ITS | Encounter Summary ---
Author Organization [employer] Address 75 [facility] 7t [place] [address] Care Team Providers Care Rattle Leak And Squeak Repairer Name Role Phone Sariah Vickers Primary Care Provider [phone] Yuri Pierre PharmD Unavailable [phone] Basilio Hall MD Unavailable [phone] Ron Preciado MD Unavailable [phone] Felipe Alanis MD Unavailable [phone] Rosemary Moses NP Unavailable May Unavailable Reason for Visit * Reason Comments Med Refill Encounter Details Date Type Department Care Team (Late st Contact Info) Description 12/07/2024 Refill [facility] [address] [place] [address] Sariah Vickers ANP 230 [place] [address] Social History Tobacco Use Types Packs/Day Years [...] Care Team (Late st Contact Info) Description 04/04/2025 10:00 AM EST Telemedicine [facility] MED & PEDS 505 [place] [address] Azeb Hall, RN 505 [place] [address] 05/10/2025 1:00 PM EDT Office Visit [facility] MED[facility]INE 230 [place] [address] Sariah Vickers, ANP 230 [place] [address] documented as of this encounter Goals Goal Patient Goal Type Associated Problems Recent Progress Patient-Stated? Author Blood Pressure < 140/90 Blood Pressure 124/80(2024 11:12 AM EST) No Aida Ragland, PharmD Record [...] documented as of this encounter Care Teams Rattle Leak And Squeak Repairer Relationship Specialty Start Date End Date Sariah Vickers ANP 230 [place] [address] PCP - General Family Medicine 09/23/19 Yuri Pierre, MikeD [address] [place] [address] Pharmacist Internal Medicine 05/05/24 02/03/25 Basilio Hall MD [address] [place] [address] Cardiology 05/17/24 01/10/25 Ron Preciado MD 5 [place] [address] Pulmonary Disease 05/17/24 Felipe Alanis MD 11 [facility] 3rd [place] [address] Cardiology 01/11/25 Rosemary Moses NP [address] [place] [address] Urology 01/11/25 Jodee Umm 11 [facility] 3rd [place] [address] Gastroenterology 01/11/25 documented as of this encounter
--- OUTSIDE RECORDS SUMMARY | 2025-02-03 17:43 | XMS_ITS | Encounter Summary ---
Author Organization [employer] Address [address] [facility] [address] 7t [place] [address] Care Team Providers Care Salt Miner Name Role Phone Sariah Vickers Primary Care Provider Yuri Pierre PharmD Unavailable Basilio Hall MD Unavailable [phone] Ron Preciado MD Unavailable [phone] Felipe Alanis MD Unavailable [phone] Rosemary Moses NP Unavailable May Unavailable Reason for Visit * Reason Comments Med Refill Encounter Details Date Type Department Care Team (Late st Contact Info) Description 12/02/2024 Refill [facility] CHC MED & PEDS [address] [place], [place] [phone] Sariah Vickers ANP 230 [place] [address] Type 2 diabetes mellitus with diabetic neuropathy, [...] [facility] st Contact Info) Description 04/04/2025 10:00 AM EST Telemedicine [facility] CHC MED & PEDS [address] [place] [address] Azeb Hall, MARTNI 505 [place] [address] 05/10/2025 1:00 PM EDT Office Visit [facility] MEDICINE 230 [place] [address] Sariah Vickers ANP 230 [place] [address] documented as of this encounter Goals Goal Patient Goal Type Associated Problems Recent Progress Patient-Stated? Author Blood Pressure < 140/90 Blood Pressure 124/80(2024 11:12 AM EST) No Aida Ragland PharmBear Record [...] documented as of this encounter Care Teams Salt Miner Relationship Specialty Start Date End Date Sariah Vickers ANP 230 [place] [address] PCP - General Family Medicine 09/23/19 Yuri Pierre, MikeD [address] [place] [address] Pharmacist Internal Medicine 05/05/24 02/03/25 Basilio Hall MD 5[address] [place] [address] Cardiology 05/17/24 01/10/25 Ron Preciado MD 5 [place] [address] Pulmonary Disease 05/17/24 Felipe Alanis MD [address] [place] [address] Cardiology 01/11/25 Rosemary Moses NP [address] [place] [address] Urology 01/11/25 Jodee Umm 11 [facility] 3rd [place] [address] Gastroenterology 01/11/25 documented as of this encounter
--- OUTSIDE RECORDS SUMMARY | 2025-02-03 17:43 | XMS_ITS | Encounter Summary ---
Author Organization [employer] Address 75 [facility] 7t [place] [address] Care Team Providers Care Golf Ball Winder Name Role Phone Sariah Vickers Primary Care Provider Yuri Pierre PharmD Unavailable [phone] Basilio Hall MD Unavailable Ron Preciado MD Unavailable [phone] Felipe Alanis MD Unavailable Rosemary Moses NP Unavailable Ellsworthmay Unavailable Encounter Details Date Type Department Care Team (Latest Contact Info) Description 04/14/2020 Abstract [facility] CONVERSIONS Dental, Provider, DDS Social [...] Description 04/04/2025 10:00 AM EST Telemedicine [facility] CHC MED & PEDS 505 [place], [place] [phone] Azeb Hall, MARTIN 505 [place], [place] [phone] 05/10/2025 1:00 PM EDT Office Visit [facility] MEDICINE 230 [place], [place] [phone] Sariah Vickers ANP 230 [place] [address] documented as of this encounter Visit Diagnoses Not on filedocumented in this encounter Care Teams Golf Ball Winder Relationship Specialty Start Date End Date Sariah Vickers ANP 230 [place] [address] PCP - General Family Medicine 09/23/19 Yuri Pierre, PharmD 230 [place] [address] Pharmacist Internal Medicine 05/05/24 02/03/25 Basilio Hall MD 596 [place] [address] Cardiology 05/17/24 01/10/25 Ron Preciado MD 5 [place] [address] Pulmonary Disease 05/17/24 Felipe Alanis MD [address] [place] [address] Cardiology 01/11/25 Rosemary Moses NP [address] [place] [address] Urology 01/11/[address] 3rd [place] [address] Gastroenterology 01/11/25 documented as of this encounter
--- OUTSIDE RECORDS SUMMARY | 2025-02-03 17:43 | XMS_ITS | Encounter Summary ---
Author Organization [employer] Address 75 [facility] 7t [place] [address] Care Team Providers Care Ticket Sales Supervisor Name Role Phone Sariah Vickers Primary Care Provider Yuri Pierre PharmD Unavailable Basilio Hall MD Unavailable Ron Preciado MD Unavailable [phone] Felipe Alanis MD Unavailable Rosemary Moses NP Unavailable May Unavailable Reason for Visit * Reason Onset Date Comments Durable Medical Equipment 03/15/2022 Encounter Details Date Type Department Care Team (Late st Contact Info) Description 03/15/2022 Telephone [facility] MEDICINE 230 [place] [address] Sariah Vickers ANP 230 [place] [address] Durable Medical Equipment Social History Tobacco Use [...] [facility] Contact Info) Description 04/04/2025 10:00 AM EST Telemedicine [facility] CHC MED & PEDS 505 [place] [address] Azeb Hall RN 505 [place] [address] 05/10/2025 1:00 PM EDT Office Visit [facility] MEDICINE [address] [place] [address] Sariah Vickers ANP [address] [place] [address] documented as of this encounter Visit Diagnoses Not on filedocumented in this encounter Care Teams Ticket Sales Supervisor Relationship Specialty Start Date End Date Sariah Vickers ANP [address] [place] [address] PCP - General Family Medicine 09/23/19 Yuri Pierre, MikeD [address] [place] [address] Pharmacist Internal Medicine 05/05/24 02/03/25 Basilio Hall MD [address] [place] [address] Cardiology 05/17/24 01/10/25 Ron Preciado MD 5 [place] [address] Pulmonary Disease 05/17/24 Felipe Alanis MD [address] 3rd [place] [address] Cardiology 01/11/25 Rosemary Moses NP [address] [place] [address] Urology 01/11/25 Jodee Umm 11 [facility] 3rd [place] [address] Gastroenterology 01/11/25 documented as of this encounter
--- OUTSIDE RECORDS SUMMARY | 2025-02-03 17:43 | XMS_ITS | Encounter Summary ---
Author Organization [employer] Address 75 [facility] 7t [place] [address] Care Team Providers Care Air Support Control Officer Name Role Phone Sariah Vickers Primary Care Provider Yuri Pierre PharmD Unavailable Basilio Hall MD Unavailable Ron Preciado MD Unavailable [phone] Felipe Alanis MD Unavailable Rosemary Moses NP Unavailable May Unavailable Reason for Visit * Reason Comments Med Refill Encounter Details Date Type Department Care Team (Late st Contact Info) Description 08/22/2023 Refill [facility] MEDICINE 230 [place] [address] Sariah Vickers ANP 230 [place] [address] Neck pain Social History Tobacco Use Types [...] Info) Description 04/04/2025 10:00 AM EST Telemedicine [facility] CHC MED & PEDS 505 [place] [address] Azeb Hall, MARTIN 505 [place] [address] 05/10/2025 1:00 PM EDT Office Visit [facility] MEDICINE 230 [place] [address] Sariah Vickers ANP 230 [place] [address] documented as of this encounter Goals Goal Patient Goal Type Associated Problems Recent Progress Patient-Stated? Author Blood Pressure < 140/90 Blood Pressure 124/80(2024 11:12 AM EST) No Aida Ragland PharmBear Record Your Blood Sugar As Directed General No Aida Ragland PharmBear Hemoglobin A1c < 7 Result Component 6.6(11/25/202 5 12:59 PM EST) Aida Ernst PharmD documented as of this encounter Visit Diagnoses Diagnosis Neck pain Cervicalgia documented in this encounter Additional Health Concerns Assessment Noted Time PHQ-9 Depression Total Score: 2 06/23/19 24 2:10 PM EDT documented as of this encounter Care Teams Air Support Control Officer Relationship Specialty Start Date End Date Sariah Vickers ANP 230 [place] [address] PCP - General Family Medicine 09/23/19 Yuri Pierre, PharmD 230 [place] [address] Pharmacist Internal Medicine 05/05/24 02/03/25 Basilio Hall MD 5[address] [place] [address] Cardiology 05/17/24 01/10/25 Ron Preciado MD 5 [place] [address] Pulmonary Disease 05/17/24 Felipe Alanis MD [address] [place] [address] Cardiology 01/11/25 Rosemary Msoes NP [address] [place] [address] Urology 01/11/[address] [place] [address] Gastroenterology 01/11/25 documented as of this encounter
--- OUTSIDE RECORDS SUMMARY | 2025-02-03 17:43 | XMS_ITS | Encounter Summary ---
Author Organization [employer] Address 75 [facility] 7t [place] [address] Care Team Providers Care Pineapple Plantation Manager Name Role Phone Sariah Vickers Primary Care Provider [phone] Yuri Pierre PharmD Unavailable Basilio Hall MD Unavailable Ron Preciado MD Unavailable [phone] Felipe Alanis MD Unavailable Rosemary Moses NP Unavailable May Unavailable Encounter Details Date Type Department Care Team (Late st Contact Info) Description 11/23/2024 Orders Only [facility] MEDICINE [address] [place], [place] [phone] Sariah Vickers ANP 230 [place], [place] [phone] Social History Tobacco Use Types Packs/Day Years [...] the past 12 months, has t he velingo, gas, oil or water [employer] threatened to shut off services in your [...] Info) Description 04/04/2025 10:00 AM EST Telemedicine [facility] CHC MED & PEDS 505 [place] [address] Azeb Hall, RN 505 [place] [address] 05/10/2025 1:00 PM EDT Office Visit [facility] MEDICINE [address] [place] [address] Sariah Vickers ANP [address] [place] [address] documented as of this encounter Goals Goal Patient Goal Type Associated Problems Recent Progress Patient-Stated? Author Blood Pressure < 140/90 Blood Pressure 124/80(2024 11:12 AM EST) No Aida Ragland, PharmBear Record [...] documented as of this encounter Care Teams Pineapple Plantation Manager Relationship Specialty Start Date End Date Sariah Vickers ANP [address] [place] [address] PCP - General Family Medicine 09/23/19 Yuri Pierre, MikeD [address] [place] [address] Pharmacist Internal Medicine 05/05/24 02/03/25 Basilio Hall MD 5[address] [place] [address] Cardiology 05/17/24 01/10/25 Ron Preciado MD 5 [place] [address] Pulmonary Disease 05/17/24 Felipe Alanis MD 11 [facility] 3rd [place] [address] Cardiology 01/11/25 Rosemary Moses NP [address] [place] [address] Urology 01/11/25 Jodee Umm 11 [facility] 3rd [place] [address] Gastroenterology 01/11/25 documented as of this encounter
--- OUTSIDE RECORDS SUMMARY | 2025-02-03 17:43 | XMS_ITS | Encounter Summary ---
Author Organization [employer] Address 75 [facility] 7t [place] [address] Care Team Providers Care Manager Of School Name Role Phone Sariah Vickers Primary Care Provider Yuri Pierre PharmD Unavailable Basilio Hall MD Unavailable [phone] Ron Preciado MD Unavailable [phone] Felipe Alanis MD Unavailable [phone] Rosemary Moses NP Unavailable Ellsworthmay Unavailable Encounter Details Date Type Department Care Team (Latest Contact Info) Description 05/15/2018 Abstract [facility] CH[facility] MED & PEDS 505 [place], [place] [phone] Azeb Hall, MARTIN 505 [place], [place] [phone] 05/10/2025 1:00 PM EDT Office Visit [facility] MEDICINE 230 [place], [place] [phone] Sariah Vickers ANP [address] [place] [address] documented as of this encounter Visit Diagnoses Not on filedocumented in this encounter Care Teams Manager Of School Relationship Specialty Start Date End Date Sariah Vickers ANP [address] [place] [address] PCP - General Family Medicine 09/23/19 Yuri Pierre, MikeD [address] [place] [address] Pharmacist Internal Medicine 05/05/24 02/03/25 Basilio Hall MD 5[address] [place] [address] Cardiology 05/17/24 01/10/25 Ron Preciado MD 5 [place] [address] Pulmonary Disease 05/17/24 Felipe Alanis MD [address] [place] [address] Cardiology 01/11/25 Rosemary Moses NP [address] [place] [address] Urology 01/11/25 Jodee May [address] [place] [address] Gastroenterology 01/11/25 documented as of this encounter
--- OUTSIDE RECORDS SUMMARY | 2025-02-03 17:43 | XMS_ITS | Encounter Summary ---
Author Organization [employer] Address 75 [facility] 7t [place] [address] Care Team Providers Care Solder Cream Maker Name Role Phone Sariah Vickers Primary Care Provider Yuri Pierre PharmD Unavailable [phone] Basilio Hall MD Unavailable Ron Preciado MD Unavailable [phone] Felipe Alanis MD Unavailable Rosemary Moses NP Unavailable May Unavailable Reason for Visit * Reason Comments Med Refill Encounter Details Date Type Department Care Team (Late st Contact Info) Description 03/03/2022 Refill [facility] MEDICINE 230 [place] [address] Sariah Vickers ANP 230 [place] [address] Social History Tobacco Use Types Packs/Day Years [...] 04/04/2025 10:00 AM EST Telemedicine [facility] CHC MED & PEDS 505 [place] [address] Azeb Hall RN 505 [place] [address] 05/10/2025 1:00 PM EDT Office Visit [facility] MEDICINE 230 [place] [address] Sariah Vickers ANP 230 [place] [address] documented as of this encounter Visit Diagnoses Not on filedocumented in this encounter Care Teams Solder Cream Maker Relationship Specialty Start Date End Date Sariah Vickers ANP 230 [place] [address] PCP - General Family Medicine 09/23/19 Yuri Pierre, PharmD [address] [place] [address] Pharmacist Internal Medicine 05/05/24 02/03/25 Basilio Hall MD 596 [place] [address] Cardiology 05/17/24 01/10/25 Ron Preciado MD [address] [place] [address] Pulmonary Disease 05/17/24 Felipe Alanis MD [address] 3rd [place] [address] Cardiology 01/11/25 Rosemary Moses NP [address] [place] [address] Urology 01/11/25 Jodee May [address] 3rd [place] [address] Gastroenterology 01/11/25 documented as of this encounter
--- OUTSIDE RECORDS SUMMARY | 2025-02-03 17:43 | XMS_ITS | Encounter Summary ---
Author Organization [employer] Address 75 [facility] 7t [place] [address] Care Team Providers Care Rate Engineer Name Role Phone Sariah Vickers Primary Care Provider Yuri Pierre PharmD Unavailable Basilio Hall MD Unavailable Ron Preciado MD Unavailable [phone] Felipe Alanis MD Unavailable Rosemary Moses NP Unavailable May Unavailable Reason for Visit * Reason Onset Date Comments Nurse Triage 11/01/2022 Encounter Details Date Type Department Care Team (Late st Contact Info) Description 11/01/[address] [facility] MEDICINE 230 [place] [address] Sariah Vickers ANP 230 [place] [address] Nurse Triage Social History Tobacco Use Types [...] 11/01/2022 3:51 PM EDT Triage call with [employer] [place] [id number] Pt reports blood sugars have been high [...] Info) Description 04/04/2025 10:00 AM EST Telemedicine [facility] CHC MED & PEDS 505 [place] [address] Azeb Hall, MARTIN 505 [place] [address] 05/10/2025 1:00 PM EDT Office Visit [facility] MEDICINE [address] [place] [address] Sariah Vickers ANP 230 [place] [address] documented as of this encounter Goals Goal Patient Goal Type Associated Problems Recent Progress Patient-Stated? Author Blood Pressure < 140/90 Blood Pressure 124/80(2024 11:12 AM EST) No Phanis-Gambl Veronica urbinasa, PharmD Record Your Blood Sugar As Directed General No Piers-Gambl eVeronicasa, PharmD Hemoglobin A1c < 7 Result Component 6.6( 12:59 PM EST) No Piers-Gambl e, Aida, PharmD documented as of this encounter Visit Diagnoses Not on filedocumented in this encounter Care Teams Rate Engineer Relationship Specialty Start Date End Date Sariah Vickers ANP [address] [place] [address] PCP - General Family Medicine 09/23/19 Yuri Pierre, PharmD [address] [place] [address] Pharmacist Internal Medicine 05/05/24 02/03/25 Basilio Hall MD 596 [place] [address] Cardiology 05/17/24 01/10/25 Ron Preciado MD 5 [place] [address] Pulmonary Disease 05/17/24 Felipe Alanis MD [facility] 3rd [place] [address] Cardiology 01/11/25 Rosemary Moses NP [address] [place] [address] Urology 01/11/25 Umm Ellsworth [address]rd [place] [address] Gastroenterology 01/11/25 documented as of this encounter
--- OUTSIDE RECORDS SUMMARY | 2025-02-03 17:43 | XMS_ITS | Encounter Summary ---
Author Organization [email or web address] Address 75 [facility] 7t [place] [address] Care Team Providers Care Label Sewer Name Role Phone Sariah Vickers KAYLEE Primary Care Provider Yuri Pierre PharmD Unavailable Basilio Hall MD Unavailable [phone] Ron Preciado MD Unavailable [phone] Felipe Alanis MD Unavailable Rosemary Moses NP Unavailable EllsworthMay Unavailable Encounter Details Date Type Department Care Team (Late st Contact Info) Description 01/09/2022 Abstract [facility] 230 [place] [address] Dental, Provider, DDS Social History Tobacco Use [...] 04/04/2025 10:00 AM EST Telemedicine [facility] CHC MED & PEDS 505 [place] [address] Azeb Hall, RN 505 [place] [address] 05/10/2025 1:00 PM EDT Office Visit [facility] MEDICINE 230 [place] [address] Sariah Vickers ANP 230 [place] [address] documented as of this encounter Procedures Procedure [...] on filedocumented in this encounter Care Teams Label Sewer Relationship Specialty Start Date End Date Sariah Vickers ANP 230 [place] [address] PCP - General Family Medicine 09/23/19 Yuri Pierre, MikeD 230 [place] [address] Pharmacist Internal Medicine 05/05/24 02/03/25 Basilio Hall MD 596 [place] [address] Cardiology 05/17/24 01/10/25 Ron Preciado MD 5 [place] [address] Pulmonary Disease 05/17/24 Felipe Alanis MD [address] 3rd [place] [address] Cardiology 01/11/25 Rosemary Moses NP [address] [place] [address] Urology 01/11/25 Umm Ellsworth [address] 3rd [place] [address] Gastroenterology 01/11/25 documented as of this encounter
--- OUTSIDE RECORDS SUMMARY | 2025-02-03 17:43 | XMS_ITS | Encounter Summary ---
Author Organization [employer] Address 75 [facility] 7t [place] [address] Care Team Providers Care Bushel Girl Name Role Phone Sariah Vickers Primary Care Provider [phone] Yuri Pierre PharmD Unavailable [phone] Basilio Hall MD Unavailable Ron Preciado MD Unavailable Felipe Alanis MD Unavailable Rosemary Moses NP Unavailable May Unavailable Encounter Details Date Type Department Care Team (Late st Contact Info) Description 02/05/2022 Abstract [facility] MEDICINE 230 [place], [place] [phone] Sariah Vickers ANP 230 [place] [address] Social History Tobacco Use Types Packs/Day Years [...] [facility] st Contact Info) Description 04/04/2025 10:00 AM EST Telemedicine [facility] CHC MED & PEDS 505 [place] [address] Azeb Hall, RN 505 [place] [address] 05/10/2025 1:00 PM EDT Office Visit [facility] MEDICINE 230 [place] [address] Sariah Vickers ANP 230 [place] [address] documented as of this encounter Visit Diagnoses Not on filedocumented in this encounter Care Teams Bushel Girl Relationship Specialty Start Date End Date Sariah Vickers ANP [address] [place] [address] PCP - General Family Medicine 09/23/19 Yuri Pierre, MikeD [address] [place] [address] Pharmacist Internal Medicine 05/05/24 02/03/25 Basilio Hall MD 596 [place] [address] Cardiology 05/17/24 01/10/25 Ron Preciado MD [address] [place] [address] Pulmonary Disease 05/17/24 Felipe Alanis MD [address] 3rd [place] [address] Cardiology 01/11/25 Rosemary Moses NP [address] [place] [address] Urology 01/11/25EllsworthMay [address] 3rd [place] [address] Gastroenterology 01/11/25 documented as of this encounter
--- OUTSIDE RECORDS SUMMARY | 2025-02-03 17:43 | XMS_ITS | Encounter Summary ---
Author Organization [employer] Address 75 [facility] 7t [place] [address] Care Team Providers Care Host Coordinator Name Role Phone Sariah Vickers Primary Care Provider Yuri Pierre PharmD Unavailable [phone] Basilio Hall MD Unavailable [phone] Ron Preciado MD Unavailable [phone] Felipe Alanis MD Unavailable [phone] Rosemary Moses NP Unavailable May Unavailable Reason for Visit * Reason Comments Med Refill Encounter Details Date Type Department Care Team (Late st Contact Info) Description 03/09/2024 Refill [facility] CHC MED & PEDS [address] [place] [address] Sariah Vickers ANP 230 [place] [address] Neck pain Social History Tobacco Use Types [...] Info) Description 04/04/2025 10:00 AM EST Telemedicine [facility] CHC MED & PEDS 505 [place] [address] Azeb Hall, RN 505 [place] [address] 05/10/2025 1:00 PM EDT Office Visit [facility] MEDICINE 230 [place] [address] aSriah Vickers ANP 230 [place] [address] documented as of this encounter Goals Goal Patient Goal Type Associated Problems Recent Progress Patient-Stated? Author Blood Pressure < 140/90 Blood Pressure 124/80(2024 11:12 AM EST) No Aida Ragland, PharmD Record Your Blood Sugar As Directed General No Aida Ragland, PharmD Hemoglobin A1c < 7 Result Component 6.6(11/25/202 5 12:59 PM EST) Aida Ernst PharmD documented as of this encounter Visit Diagnoses Diagnosis Neck pain Cervicalgia documented in this encounter Additional Health Concerns Assessment Noted Time PHQ-9 Depression Total Score: 12 024 2:58 PM EDT documented as of this encounter Care Teams Host Coordinator Relationship Specialty Start Date End Date Sariah Vickers ANP 230 [place] [address] PCP - General Family Medicine 09/23/19 Yuri Pierre, PharmD 230 [place] [address] Pharmacist Internal Medicine 05/05/24 02/03/25 Basilio Hall MD 596 [place] [address] Cardiology 05/17/24 01/10/25 Ron Preciado MD 5 [place] [address] Pulmonary Disease 05/17/24 Felipe Alanis MD [address]rd [place] [address] Cardiology 01/11/25 Rosemary Moses NP [address] [place] [address] Urology 01/11/[address] 3rd [place] [address] Gastroenterology 01/11/25 documented as of this encounter
--- OUTSIDE RECORDS SUMMARY | 2025-02-03 17:43 | XMS_ITS | Encounter Summary ---
Author Organization [employer] Address 75 [facility] 7t [place] [address] Care Team Providers Care Internal Audit Director Name Role Phone Sariah Vickers Primary Care Provider Yuri Pierre PharmD Unavailable Basilio Hall MD Unavailable Ron Preciado MD Unavailable [phone] Felipe Alanis MD Unavailable Rosemary Moses NP Unavailable May Unavailable Reason for Visit * Reason Comments Med Refill Encounter Details Date Type Department Care Team (Late st Contact Info) Description 09/13/2022 Refill [facility] CHC MED & PEDS [address] [place] [address] Sariah Vickers ANP 230 [place] [address] Severe persistent allergic asthma without complication Social [...] Info) Description 04/04/2025 10:00 AM EST Telemedicine [facility] CHC MED & PEDS 505 [place] [address] Azeb Hall, RN 505 [place] [address] 05/10/2025 1:00 PM EDT Office Visit [facility] MEDICINE 230 [place] [address] Sariah Vickers ANP [address] [place] [address] documented as of this encounter Visit Diagnoses Diagnosis Severe persistent allergic asthma without complication (HCC) documented in this encounter Care Teams Internal Audit Director Relationship Specialty Start Date End Date Sariah Vickers ANP [address] [place] [address] PCP - General Family Medicine 09/23/19 Yuri Pierre, MikeD [address] [place] [address] Pharmacist Internal Medicine 05/05/24 02/03/25 Basilio Hall MD 596 [place] [address] Cardiology 05/17/24 01/10/25 Ron Preciado MD 5 [place] [address] Pulmonary Disease 05/17/24 Felipe Alanis MD [address] 3rd [place] [address] Cardiology 01/11/25 Rosemary Moses NP [address] [place] [address] Urology 01/11/25 Jodee May [address] 3rd [place] [address] Gastroenterology 01/11/25 documented as of this encounter
--- OUTSIDE RECORDS SUMMARY | 2025-02-03 17:43 | XMS_ITS | Encounter Summary ---
Author Organization [employer] Address 75 [facility] 7t [place] [address] Care Team Providers Care Hydraulic Chair Assembler Name Role Phone Sariah Vickers Primary Care Provider Yuri Pierre PharmD Unavailable Basilio Hall MD Unavailable [phone] Ron Preciado MD Unavailable [phone] Felipe Alanis MD Unavailable [phone] Rosemary Moses NP Unavailable Ellsworthmay Unavailable Encounter Details Date Type Department Care Team (Latest Contact Info) Description 06/20/2021 Abstract [facility] Dental, Provider, DDS Social History Tobacco [...] [facility] 505 [place], [place] [phone] zAeb Hall, MARTIN 505 [place], [place] [phone] 05/10/2025 1:00 PM EDT Office Visit [facility] MEDICINE 230 [place], [place] [phone] Sariah Vickers ANP 230 [place] [address] documented as of this encounter Visit Diagnoses Not on filedocumented in this encounter Care Teams Hydraulic Chair Assembler Relationship Specialty Start Date End Date Sariah Vickers ANP 230 [place] [address] PCP - General Family Medicine 09/23/19 Yuri Pierre, PharmD 230 [place] [address] Pharmacist Internal Medicine 05/05/24 02/03/25 Basilio Hall MD 596 [place] [address] Cardiology 05/17/24 01/10/25 Ron Preciado MD 5 [place] [address] Pulmonary Disease 05/17/24 Felipe Alanis MD [address]rd [place] [address] Cardiology 01/11/25 Rosemary Moses NP [address] [place] [address] Urology 01/11/[address] 3rd [place] [address] Gastroenterology 01/11/25 documented as of this encounter
--- OUTSIDE RECORDS SUMMARY | 2025-02-03 17:44 | XMS_ITS | Encounter Summary ---
Author Organization [employer] Address 75 [facility] 7t [place] [address] Care Team Providers Care Optomechanical Technician Name Role Phone Sariah Vickers Primary Care Provider [phone] Yuri Pierre PharmD Unavailable [phone] Basilio Hall MD Unavailable [phone] Ron Preciado MD Unavailable [phone] Felipe Alnais MD Unavailable Rosemary Moses NP Unavailable May Unavailable Reason for Visit * Reason Comments Med Refill Encounter Details Date Type Department Care Team (Late st Contact Info) Description 10/24/2023 Refill [facility] MEDICINE 230 [place] [address] Sariah Vickers ANP 230 [place] [address] Neck pain Social History Tobacco Use Types [...] [facility] CH[facility] MED & PEDS 505 [place] [address] Azeb Hall, MARTIN 505 [place] [address] 05/10/2025 1:00 PM EDT Office Visit [facility] MEDICINE 230 [place] [address] Sariah Vickers ANP 230 [place] [address] documented as of this encounter Goals Goal [...] documented as of this encounter Care Teams Optomechanical Technician Relationship Specialty Start Date End Date Sariah Vickers ANP 230 [place] [address] PCP - General Family Medicine 09/23/19 Yuri Pierre, PharmD 230 [place] [address] Pharmacist Internal Medicine 05/05/24 02/03/25 Basilio Hall MD 596 [place] [address] Cardiology 05/17/24 01/10/25 Ron Preciado MD 5 [place] [address] Pulmonary Disease 05/17/24 Felipe Alanis MD [address]rd [place] [address] Cardiology 01/11/25 Rosemary Moses NP [address] [address] Urology 01/11/[address]rd [place] [address] Gastroenterology 01/11/25 documented as of this encounter
--- OUTSIDE RECORDS SUMMARY | 2025-02-03 17:44 | XMS_ITS | Encounter Summary ---
Author Organization [employer] Address 75 [facility] 7t [place] [address] Care Team Providers Care Casualty Claim Adjuster Name Role Phone Sariah Vickers Primary Care Provider [phone] Yuri Pierre PharmD Unavailable [phone] Basilio Hall MD Unavailable Ron Preciado MD Unavailable [phone] Felipe Alanis MD Unavailable Rosemary Moses NP Unavailable May Unavailable Reason for Visit * Reason Comments Med Refill Pt wants to know if she can keep taking prednis Encounter Details Date Type Department Care Team (Late st Contact Info) Description 06/26/2024 Refill [facility] CHC MED & PEDS [address] [place], [place] [phone] Sariah Vickers ANP 230 [place] [address] Cervicalgia Social History Tobacco Use Types Packs/Day [...] Info) Description 04/04/2025 10:00 AM EST Telemedicine [facility] CHC MED & PEDS 505 [place] [address] Azeb Hall, RN 505 [place] [address] 05/10/2025 1:00 PM EDT Office Visit [facility] MEDICINE 230 [place] [address] Sariah Vickers ANP 230 [place] [address] documented as of this encounter Goals Goal [...] documented as of this encounter Care Teams Casualty Claim Adjuster Relationship Specialty Start Date End Date Sariah Vickers ANP 230 [place] [address] PCP - General Family Medicine 09/23/19 Yuri Pierre, MikeD 230 [place] [address] Pharmacist Internal Medicine 05/05/24 02/03/25 Basilio Hall MD 596 [place] [address] Cardiology 05/17/24 01/10/25 Ron Preciado MD 5 [place] [address] Pulmonary Disease 05/17/24 Felipe Alanis MD [address] 3rd [place] [address] Cardiology 01/11/25 Rosemary Moses NP [address] [place] [address] Urology 01/11/25May [address] 3rd [place] [address] Gastroenterology 01/11/25 documented as of this encounter
--- OUTSIDE RECORDS SUMMARY | 2025-02-03 17:44 | XMS_ITS | Encounter Summary ---
Author Organization [employer] Address 75 [facility] 7t [place] [address] Care Team Providers Care Unix Architect Name Role Phone Sariah Vickers Primary Care Provider Yuri Pierre PharmD Unavailable Basilio Hall MD Unavailable Ron Preciado MD Unavailable [phone] Felipe Alanis MD Unavailable Rosemary Moses NP Unavailable May Unavailable Reason for Visit * Reason Comments Med Refill Encounter Details Date Type Department Care Team (Late st Contact Info) Description 12/17/2023 Refill [facility] MEDICINE 230 [place] [address] Sariah Vickers ANP 230 [place] [address] Chronic SI joint pain Social History Tobacco [...] 04/04/2025 10:00 AM EST Telemedicine [facility] CHC MED & PEDS 505 [place] [address] Azeb Hall, RN 505 [place] [address] 05/10/2025 1:00 PM EDT Office Visit [facility] MEDICINE 230 [place] [address] Sariah Vickers, KAYLEE 230 [place] [address] documented as of this encounter Goals Goal Patient Goal Type Associated Problems Recent Progress Patient-Stated? Author Blood Pressure < 140/90 Blood Pressure 124/80(2024 11:12 AM EST) No Aida Ragland PharmD Record [...] documented as of this encounter Care Teams Unix Architect Relationship Specialty Start Date End Date Sariah Vickers ANP 230 [place] [address] PCP - General Family Medicine 09/23/19 Yuri Pierre, PharmD 230 [place] [address] Pharmacist Internal Medicine 05/05/24 02/03/25 Basilio Hall MD 596 [place] [address] Cardiology 05/17/24 01/10/25 Ron Preciado MD 5 [place] [address] Pulmonary Disease 05/17/24 Felipe Alanis MD [address] [place] [address] Cardiology 01/11/25 Rosemary Moses NP [address] [place] [address] Urology 01/11/25May [address] 3rd [place] [address] Gastroenterology 01/11/25 documented as of this encounter
--- OUTSIDE RECORDS SUMMARY | 2025-02-03 17:44 | XMS_ITS | Encounter Summary ---
Author Organization [employer] Address 75 [facility] 7t [place] [address] Care Team Providers Care Sr. Director Product Management Name Role Phone Sariah Vickers Primary Care Provider Yuri Pierre PharmD Unavailable Basilio Hall MD Unavailable Ron Preciado MD Unavailable [phone] Felipe Alanis MD Unavailable Rosemary Moses NP Unavailable May Unavailable Reason for Visit * Reason Comments Med Refill Encounter Details Date Type Department Care Team (Late st Contact Info) Description 10/03/2023 Refill [facility] 230 [place] [address] Sariah Vickers ANP 230 [place] [address] Chronic SI joint pain Social History Tobacco [...] Info) Description 04/04/2025 10:00 AM EST Telemedicine [facility] CHC MED & PEDS 505 [place] [address] Azeb Hall, RN 505 [place] [address] 05/10/2025 1:00 PM EDT Office Visit [facility] MEDICINE 230 [place] [address] Sariah Vickers ANP 230 [place] [address] documented as of this encounter Goals Goal [...] documented as of this encounter Care Teams Sr. Director Product Management Relationship Specialty Start Date End Date Sariah Vickers ANP 230 [place] [address] PCP - General Family Medicine 09/23/19 Yuri Pierre, PharmD 230 [place] [address] Pharmacist Internal Medicine 05/05/24 02/03/25 Basilio Hall MD 596 [place] [address] Cardiology 05/17/24 01/10/25 Ron Preciado MD 5 [place] [address] Pulmonary Disease 05/17/24 Felipe Alanis MD [address] [place] [address] Cardiology 01/11/25 Rosemary Moses NP [address] [place] [address] Urology 01/11/25May [address] [place] [address] Gastroenterology 01/11/25 documented as of this encounter
--- OUTSIDE RECORDS SUMMARY | 2025-02-03 17:44 | XMS_ITS | Encounter Summary ---
Author Organization [employer] Address 75 [facility] 7t [place] [address] Care Team Providers Care Director Patient Accounting Name Role Phone Sariah Vickers Primary Care Provider Yuri Pierre PharmD Unavailable Basilio Hall MD Unavailable [phone] Ron Preciado MD Unavailable [phone] Felipe Alanis MD Unavailable Rosemary Moses NP Unavailable May Unavailable Reason for Visit * Reason Comments Med Refill Encounter Details Date Type Department Care Team (Late st Contact Info) Description 10/17/2023 Refill [facility] MEDICINE 230 [place] [address] Sariah Vickers ANP 230 [place] [address] Neck pain Social History Tobacco Use Types [...] Info) Description 04/04/2025 10:00 AM EST Telemedicine [facility] CHC MED & PEDS 505 [place] [address] Azbe Hall, MARTIN 505 [place] [address] 05/10/2025 1:00 PM EDT Office Visit [facility] MEDICINE 230 [place] [address] Sariah Vickers ANP 230 [place] [address] documented as of this encounter Goals Goal [...] as of this encounter Care Teams Director Patient Accounting Relationship Specialty Start Date End Date Sariah Vickers ANP 230 [place] [address] PCP - General Family Medicine 09/23/19 Yuri Pierre, PharmD 230 [place] [address] Pharmacist Internal Medicine 05/05/24 02/03/25 Basilio Hall MD 596 [place] [address] Cardiology 05/17/24 01/10/25 Ron Preciado MD 5 [place] [address] Pulmonary Disease 05/17/24 Felipe Alanis MD [address] [place] [address] Cardiology 01/11/25 Rosemary Moses NP [address] [place] [address] Urology 01/11/[address] [place] [address] Gastroenterology 01/11/25 documented as of this encounter
--- OUTSIDE RECORDS SUMMARY | 2025-02-03 17:44 | XMS_ITS | Encounter Summary ---
Author Organization [employer] Address [address] [facility] 7t [place] [address] Care Team Providers Care Solar Photovoltaic Electrician Name Role Phone Sariah Vickers Primary Care Provider [phone] Yuri Pierre PharmD Unavailable Basilio Hall MD Unavailable Ron Preciado MD Unavailable [phone] Felipe Alanis MD Unavailable [phone] Rosemary Moses NP Unavailable May Unavailable Reason for Visit * Reason Comments Med Refill Encounter Details Date Type Department Care Team (Late st Contact Info) Description 01/04/2024 Refill [facility] MED [facility] P[facility]S [address] [place] [address] Sariah Vickers ANP 230 [place] [address] Cervicalgia Social History Tobacco Use Types Packs/Day [...] 04/04/2025 10:00 AM EST Telemedicine [facility] MED & PEDS 505 [place] [address] Azeb Hall, RN 505 [place] [address] 05/10/2025 1:00 PM EDT Office Visit [facility] MEDICINE 230 [place] [address] Sariah Vickers ANP 230 [place] [address] documented as of this encounter Goals Goal [...] of this encounter Care Teams Solar Photovoltaic Electrician Relationship Specialty Start Date End Date Sariah Vickers ANP 230 [place] [address] PCP - General Family Medicine 09/23/19 Yuri Pierre, PharmD 230 [place] [address] Pharmacist Internal Medicine 05/05/24 02/03/25 Basilio Hall MD 596 [place] [address] Cardiology 05/17/24 01/10/25 Ron Preciado MD 5 [place] [address] Pulmonary Disease 05/17/24 Felipe Alanis MD [address] [place] [address] Cardiology 01/11/25 Rosemary Moses NP [address] [place] [address] Urology 01/11/[address] [place] [address] Gastroenterology 01/11/25 documented as of this encounter
--- OUTSIDE RECORDS SUMMARY | 2025-02-03 17:44 | XMS_ITS | Encounter Summary ---
Author Organization [employer] Address 75 [facility] 7t [place] [address] Care Team Providers Care Biofuels Research Scientist Name Role Phone Sariah Vickers Primary Care Provider Yuri Pierre PharmD Unavailable Basilio Hall MD Unavailable Ron Preciado MD Unavailable [phone] Felipe Alanis MD Unavailable Rosemary Moses NP Unavailable May Unavailable Reason for Visit * Reason Comments Med Refill Encounter Details Date Type Department Care Team (Late st Contact Info) Description 11/14/2023 Refill [facility] MEDICINE 230 [place] [address] Sariah Vickers ANP 230 [place] [address] Neck pain Social History Tobacco Use Types [...] Info) Description 04/04/2025 10:00 AM EST Telemedicine [facility] CHC MED & PEDS 505 [place] [address] Azeb Hall, MARTIN 505 [place] [address] 05/10/2025 1:00 PM EDT Office Visit [facility] MEDICINE 230 [place] [address] Sariah Vickers ANP 230 [place] [address] documented as of this encounter Goals Goal [...] documented as of this encounter Care Teams Biofuels Research Scientist Relationship Specialty Start Date End Date Sariah Vickers ANP 230 [place] [address] PCP - General Family Medicine 09/23/19 Yuri Pierre, PharmD 230 [place] [address] Pharmacist Internal Medicine 05/05/24 02/03/25 Basilio Hall MD 596 [place] [address] Cardiology 05/17/24 01/10/25 Ron Preciado MD 5 [place] [address] Pulmonary Disease 05/17/24 Felipe Alanis MD [address] [place] [address] Cardiology 01/11/25 Rosemary Moses NP [address] [place] [address] Urology 01/11/[address] [place] [address] Gastroenterology 01/11/25 documented as of this encounter
--- OUTSIDE RECORDS SUMMARY | 2025-02-03 17:44 | XMS_ITS | Encounter Summary ---
Author Organization [employer] Address [address] [facility] 7t [place] [address] Care Team Providers Care Oriental Medicine Practitioner Name Role Phone Sariah Vickers Primary Care Provider Yuri Pierre PharmD Unavailable Basilio Hall MD Unavailable [phone] Ron Preciado MD Unavailable [phone] Felipe Alanis MD Unavailable [phone] Rosemary Moses NP Unavailable May Unavailable Reason for Visit * Reason Comments Med Refill Encounter Details Date Type Department Care Team (Late st Contact Info) Description 11/26/2023 Refill [facility] MEDICINE 230 [place] [address] Sariah Vickers ANP [address] [place] [address] Vertigo Social History Tobacco Use Types Packs/Day [...] Description 04/04/2025 10:00 AM EST Telemedicine [facility] CHC MED & PEDS 505 [place] [address] Azeb Hall, MARTIN 505 [place] [address] 05/10/2025 1:00 PM EDT Office Visit [facility] MEDICINE 230 [place] [address] Sariah Vickers ANP 230 [place] [address] documented as of this encounter Goals Goal [...] documented as of this encounter Care Teams Oriental Medicine Practitioner Relationship Specialty Start Date End Date Sariah Vickers ANP [address] [place] [address] PCP - General Family Medicine 09/23/19 Yuri Pierre, PharmD 230 [place] [address] Pharmacist Internal Medicine 05/05/24 02/03/25 Basilio Hall MD [address] [place] [address] Cardiology 05/17/24 01/10/25 Ron Preciado MD 5 [place] [address] Pulmonary Disease 05/17/24 Felipe Alanis MD [address] [place] [address] Cardiology 01/11/25 Rosemary Moses NP [address] [place] [address] Urology 01/11/[address] 3rd [place] [address] Gastroenterology 01/11/25 documented as of this encounter
--- OUTSIDE RECORDS SUMMARY | 2025-02-03 17:44 | XMS_ITS | Encounter Summary ---
Author Organization [employer] Address 75 [facility] 7t [place] [address] Care Team Providers Care Airline Pilot Flight Instructor Name Role Phone Sariah Vickers Primary Care Provider [phone] Yuri Pierre PharmD Unavailable Basilio Hall MD Unavailable [phone] Ron Preciado MD Unavailable [phone] Felipe Alanis MD Unavailable Rosemary Moses NP Unavailable May Unavailable Reason for Visit * Reason Onset Date Comments Med Refill 01/09/2024 Encounter Details Date Type Department Care Team (Late st Contact Info) Description 01/09/2024 Telephone [facility] MEDICINE 230 [place] [address] Sariah Vickers ANP 230 [place] [address] Med Refill Social History Tobacco Use Types [...] Info) Description 04/04/2025 10:00 AM EST Telemedicine [facility] CHC MED & PEDS [address] [place] [address] Azeb Hall, RN 505 [place] [address] 05/10/2025 1:00 PM EDT Office Visit [facility] MEDICINE 230 [place] [address] Sariah Vickers ANP [address] [place] [address] documented as of this encounter Goals Goal [...] documented as of this encounter Care Teams Airline Pilot Flight Instructor Relationship Specialty Start Date End Date Sariah Vickers ANP 230 [place] [address] PCP - General Family Medicine 09/23/19 Yuri Pierre, MikeD 230 [place] [address] Pharmacist Internal Medicine 05/05/24 02/03/25 Basilio Hall MD 596 [place] [address] Cardiology 05/17/24 01/10/25 Ron Preciado MD 5 [place] [address] Pulmonary Disease 05/17/24 Felipe Alanis MD [address] [place] [address] Cardiology 01/11/25 Rosemary Moses NP [address] [place] [address] Urology 01/11/25May [address] [place] [address] Gastroenterology 01/11/25 documented as of this encounter
--- OUTSIDE RECORDS SUMMARY | 2025-02-03 17:44 | XMS_ITS | Encounter Summary ---
Author Organization [employer] Address 75 [facility] 7t [place] [address] Care Team Providers Care Lead Assistant Manager Name Role Phone Sariah Vickers Primary Care Provider Yuri Pierre PharmD Unavailable Ron Preciado MD Unavailable [phone] Felipe Alanis MD Unavailable Rosemary Moses NP Unavailable EllsworthMay Unavailable Reason for Visit * Reason Comments Med Refill Encounter Details Date Type Department Care Team (Late st Contact Info) Description 02/01/2025 Refill [facility] 230 [place], [place] [id number] Sariah Vickers ANP 230 [place] [address] Social History Tobacco Use Types Packs/Day Years [...] the past 12 months, has t he [employer], gas, oil or water company threatened to [...] Info) Description 04/04/2025 10:00 AM EST Telemedicine [facility] CHC MED & PEDS 505 [place] [address] Azeb Hall, RN 505 [place] [address] 05/10/2025 1:00 PM EDT Office Visit [facility] MEDICINE 230 [place] [address] Sariah Vickers ANP 230 [place] [address] documented as of this encounter Goals Goal Patient Goal Type Associated Problems Recent Progress Patient-Stated? Author Blood Pressure < 140/90 Blood Pressure 124/80(2024 11:12 AM EST) No Aida Corona, Dileep Record Your Blood Sugar As Directed General No Aida Corona PharmD Hemoglobin A1c < 7 Result Component 6.6( 5 12:59 PM EST) No Aida Corona, Dileep Help patients manage their type 2 diabetes [...] Plan Weekly blood pressure task No Azeb aHll RN Patient has chronic kidney disease Care [...] as of this encounter Care Teams Lead Assistant Manager Relationship Specialty Start Date End Date Sariah Vickers ANP 230 [place] [address] PCP - General Family Medicine 09/23/19 Yuri Pierre, PharmD [facility] [place] [address] Pharmacist Internal Medicine 05/05/24 02/03/25 Ron Preciado MD 5 [place] [address] Pulmonary Disease 05/17/24 Felipe Alanis MD [address] 3rd [place] [address] Cardiology 01/11/25 Rosemary Moses NP [address] [place] [address] Urology 01/11/25 Umm Ellsworth [address] 3rd [place] [address] Gastroenterology 01/11/25 documented as of this encounter
--- OUTSIDE RECORDS SUMMARY | 2025-02-03 17:44 | XMS_ITS | Encounter Summary ---
Author Organization [employer] Address [address] [facility] 7t [place] [address] Care Team Providers Care Set Up Person Name Role Phone Sariah Vickers Primary Care Provider Yuri Pierre PharmD Unavailable Basilio Hall MD Unavailable [phone] Ron Preciado MD Unavailable [phone] Felipe Alanis MD Unavailable [phone] Rosemary Moses NP Unavailable May Unavailable Reason for Visit * Reason Onset Date Comments Med Refill 09/18/2023 Encounter Details Date Type Department Care Team (Late st Contact Info) Description 09/18/2023 Telephone [facility] MEDICINE 230 [place], [place] [phone] Sariah Vickers ANP [address] [place] [address] Med Refill Social History Tobacco Use Types [...] refill : Tramadol To be sent to: [facility] - [place], [place] - [address] [place] [address] documented in this encounter Plan of Treatment Upcoming Encounters Date Type Department Care Team (Late st Contact Info) Description 04/04/2025 10:00 AM EST Telemedicine [facility] CHC MED & PEDS 505 [place] [address] Azeb Hall, MARTIN 505 [place] [address] 05/10/2025 1:00 PM EDT Office Visit [facility] MEDICINE 230 [place] [address] Sariah Vickers, ANP 230 [place] [address] documented as of this encounter Goals Goal Patient Goal Type Associated Problems Recent Progress Patient-Stated? Author Blood Pressure < 140/90 Blood Pressure 124/80(2024 11:12 AM EST) No Piers-Gambl e, Aida, PharmD [...] documented as of this encounter Care Teams Set Up Person Relationship Specialty Start Date End Date Sariah Vickers ANP 230 [place] [address] PCP - General Family Medicine 09/23/19 Yuri Pierre, MikeD 230 [place] [address] Pharmacist Internal Medicine 05/05/24 02/03/25 Basilio Hall MD 5[address] [place] [address] Cardiology 05/17/24 01/10/25 Ron Preciado MD 5 [place] [address] Pulmonary Disease 05/17/24 Felipe Alanis MD [address] 3rd [place] [address] Cardiology 01/11/25 Rosemary Moses NP [address] [place] [address] Urology 01/11/[address]rd [place] [address] Gastroenterology 01/11/25 documented as of this encounter
--- OUTSIDE RECORDS SUMMARY | 2025-02-03 17:44 | XMS_ITS | Encounter Summary ---
Author Organization [employer] Address 75 [facility] 7t [place] [address] Care Team Providers Care Supervisor Partial Denture Department Name Role Phone Sariah Vickers Primary Care Provider Yuri Pierre PharmD Unavailable [phone] Basilio Hall MD Unavailable Ron Preciado MD Unavailable [phone] Felipe Alanis MD Unavailable Rosemary Moses NP Unavailable May Unavailable Reason for Visit * Reason Comments Med Refill Encounter Details Date Type Department Care Team (Late st Contact Info) Description 01/06/2024 Refill [facility] CHC MED & PEDS [address] [place] [address] Sariah Vickers ANP 230 [place] [address] Cervicalgia Social History Tobacco Use Types Packs/Day [...] Info) Description 04/04/2025 10:00 AM EST Telemedicine [facility] CHC MED & PEDS 505 [place] [address] Azeb Hall, RN 505 [place] [address] 05/10/2025 1:00 PM EDT Office Visit [facility] MEDICINE 230 [place] [address] Sariah Vickers ANP 230 [place] [address] documented as of this encounter Goals Goal [...] as of this encounter Care Teams Supervisor Partial Denture Department Relationship Specialty Start Date End Date Sariah Vickers ANP 230 [place] [address] PCP - General Family Medicine 09/23/19 Yuri Pierre, PharmD 230 [place] [address] Pharmacist Internal Medicine 05/05/24 02/03/25 Basilio Hall MD 5[address] [place] [address] Cardiology 05/17/24 01/10/25 Ron Preciado MD 5 [place] [address] Pulmonary Disease 05/17/24 Felipe Alanis MD [address] [place] [address] Cardiology 01/11/25 Rosemary Moses NP [address] [place] [address] Urology 01/11/[address] [place] [address] Gastroenterology 01/11/25 documented as of this encounter
--- OUTSIDE RECORDS SUMMARY | 2025-02-03 17:44 | XMS_ITS | Encounter Summary ---
Author Organization [employer] Address 75 [facility] 7t [place] [address] Care Team Providers Care Sales Enablement Consultant Name Role Phone Sariah Vickers Primary Care Provider Yuri Pierre PharmD Unavailable [phone] Ron Preciado MD Unavailable [phone] Felipe Alanis MD Unavailable Rosemary Moses NP Unavailable Umm Ellsworth Unavailable Reason for Visit * Reason Onset Date Comments april recall 02/01/2025 Encounter Details Date Type Department Care Team (Late st Contact Info) Description 02/01/2025 Telephone [facility] MEDICINE 230 [place], [place] [phone] Sariah Vickers ANP 230 [place] [address] april recall Social History Tobacco Use Types [...] Info) Description 04/04/2025 10:00 AM EST Telemedicine [facility] CHC MED & PEDS 505 [place] [address] Azeb Hall, MARTIN 505 [place] [address] 05/10/2025 1:00 PM EDT Office Visit [facility] MEDICINE [address] [place] [address] Sariah Vickers, ANP 230 [place] [address] documented as of this encounter Goals Goal Patient Goal Type Associated Problems Recent Progress Patient-Stated? Author Blood Pressure < 140/90 Blood Pressure 124/80(2024 11:12 AM EST) No Aida Corona PharmD Record Your [...] as of this encounter Care Teams Sales Enablement Consultant Relationship Specialty Start Date End Date Sariah Vickers ANP 230 [place] [address] PCP - General Family Medicine 09/23/19 Yuri Pierre, MikeD 230 [place] [address] Pharmacist Internal Medicine 05/05/24 02/03/25 Ron Preciado MD 5 [place] [address] Pulmonary Disease 05/17/24 Felipe Alanis MD [address] 3rd [place] [address] Cardiology 01/11/25 Rosemary Moses NP [address] [place] [address] Urology 01/11/25 [address]mm [address] 3rd [place] [address] Gastroenterology 01/11/25 documented as of this encounter
--- OUTSIDE RECORDS SUMMARY | 2025-02-03 17:44 | XMS_ITS | Encounter Summary ---
Author Organization [employer] Address 75 [facility] 7t [place] [address] Care Team Providers Care Decorating Consultant Name Role Phone Sariah Vickers Primary Care Provider Yuri Pierre PharmD Unavailable Basilio Hall MD Unavailable [phone] Ron Preciado MD Unavailable [phone] Felipe Alanis MD Unavailable Rosemary Moses NP Unavailable May Unavailable Reason for Visit * Reason Comments Med Refill Encounter Details Date Type Department Care Team (Late st Contact Info) Description 10/03/2023 Refill [facility] 230 [place] [address] Sariah Vickers ANP 230 [place] [address] Chronic SI joint pain Social History Tobacco [...] [facility] CHC MED & PEDS 505 [place] [address] Azeb Hall, RN 505 [place] [address] 05/10/2025 1:00 PM EDT Office Visit [facility] MEDICINE 230 [place] [address] Sariah Vickers ANP 230 [place] [address] documented as of this encounter Goals Goal [...] documented as of this encounter Care Teams Decorating Consultant Relationship Specialty Start Date End Date Sariah Vickers ANP 230 [place] [address] PCP - General Family Medicine 09/23/19 Yuri Pierre, PharmD 230 [place] [address] Pharmacist Internal Medicine 05/05/24 02/03/25 Basilio Hall MD 596 [place] [address] Cardiology 05/17/24 01/10/25 Ron Preciado MD 5 [place] [address] Pulmonary Disease 05/17/24 Felipe Alanis MD [address] [place] [address] Cardiology 01/11/25 Rosemary Moses NP [address] [place] [address] Urology 01/11/25May [address] [place] [address] Gastroenterology 01/11/25 documented as of this encounter
--- OUTSIDE RECORDS SUMMARY | 2025-02-03 17:44 | XMS_ITS | Encounter Summary ---
Author Organization [employer] Address 75 [facility] 7t [place] [address] Care Team Providers Care Scientific Editor Name Role Phone Sariah Vickers Primary Care Provider Yuri Pierre PharmD Unavailable Basilio Hall MD Unavailable [phone] Ron Preciado MD Unavailable [phone] Felipe Alanis MD Unavailable [phone] Rosemary Moses NP Unavailable May Unavailable Reason for Visit * Reason Comments Med Refill Encounter Details Date Type Department Care Team (Late st Contact Info) Description 01/06/2024 Refill [facility] CHC MED & PEDS [address] [place] [address] Sariah Vickers ANP 230 [place] [address] Cervicalgia Social History Tobacco Use Types Packs/Day [...] 04/04/2025 10:00 AM EST Telemedicine [facility] CHC MED & PEDS 505 [place] [address] Azeb Hall, RN 505 [place] [address] 05/10/2025 1:00 PM EDT Office Visit [facility] MEDICINE 230 [place] [address] Sariah Vickers ANP 230 [place] [address] documented as of this encounter Goals Goal [...] documented as of this encounter Care Teams Scientific Editor Relationship Specialty Start Date End Date Sariah Vickers ANP 230 [place] [address] PCP - General Family Medicine 09/23/19 Yuri Pierre, PharmD 230 [place] [address] Pharmacist Internal Medicine 05/05/24 02/03/25 Basilio Hall MD 5[address] [place] [address] Cardiology 05/17/24 01/10/25 Ron Preciado MD 5 [place] [address] Pulmonary Disease 05/17/24 Felipe Alanis MD [address] [place] [address] Cardiology 01/11/25 Rosemary Moses NP [address] [place] [address] Urology 01/11/[address] [place] [address] Gastroenterology 01/11/25 documented as of this encounter
--- OUTSIDE RECORDS SUMMARY | 2025-02-03 17:44 | XMS_ITS | Encounter Summary ---
Author Organization [employer] Address 75 [facility] 7t [place] [address] Care Team Providers Care Church Musician Name Role Phone Sariah Vickers Primary Care Provider Yuri Pierre PharmD Unavailable [phone] Basilio Hall MD Unavailable Ron Preciado MD Unavailable Felipe Alanis MD Unavailable [phone] Rosemary Moses NP Unavailable May Unavailable Reason for Visit * Reason Comments Med Refill Encounter Details Date Type Department Care Team (Late st Contact Info) Description 12/12/2024 Refill [facility] CHC MED & PEDS [address] [place] [address] Sariah Vickers ANP 230 [place] [address] Cervicalgia Social History Tobacco Use Types Packs/Day [...] Info) Description 04/04/2025 10:00 AM EST Telemedicine [facility] CHC MED & PEDS 505 [place] [address] Azeb Hall, RN 505 [place] [address] 05/10/2025 1:00 PM EDT Office Visit [facility] MEDICINE 230 [place] [address] Sariah Vickers ANP [address] [place] [address] documented as of this encounter Goals Goal [...] documented as of this encounter Care Teams Church Musician Relationship Specialty Start Date End Date Sariah Vickers ANP 230 [place] [address] PCP - General Family Medicine 09/23/19 Yuri Pierre, MikeD [address] [place] [address] Pharmacist Internal Medicine 05/05/24 02/03/25 Basilio Hall MD 596 [place] [address] Cardiology 05/17/24 01/10/25 Ron Preciado MD 5 [place] [address] Pulmonary Disease 05/17/24 Felipe Alanis MD 11 [facility] [address] [place] [address] Cardiology 01/11/25 Rosemary Moses NP [address] [place] [address] Urology 01/11/25 JodeeMay 11 [facility] [address] [place] [address] Gastroenterology 01/11/25 documented as of this encounter
--- OUTSIDE RECORDS SUMMARY | 2025-02-03 17:44 | XMS_ITS | Encounter Summary ---
Author Organization [employer] Address [address] [facility] 7t [place] [address] Care Team Providers Care Wind Turbine Engineer Name Role Phone Sariah Vickers Primary Care Provider Yuri Pierre PharmD Unavailable [phone] Basilio Hall MD Unavailable Ron Preciado MD Unavailable [phone] Felipe Alanis MD Unavailable [phone] Rosemary Moses NP Unavailable May Unavailable Reason for Visit * Reason Comments Med Refill Encounter Details Date Type Department Care Team (Late st Contact Info) Description 03/26/2022 Refill [facility] MEDICINE [address] [place] [address] Sariah Vickers ANP [address] [place] [address] Social History Tobacco Use Types Packs/Day Years [...] ([facility] st Contact Info) Description 04/04/2025 10:00 AM EST Telemedicine [facility] CHC MED & PEDS 505 [place] [address] Azeb Hall, MARTIN 505 [place] [address] 05/10/2025 1:00 PM EDT Office Visit [facility] MEDICINE [address] [place] [address] Sariah Vickers ANP [address] [place] [address] documented as of this encounter Visit Diagnoses Not on filedocumented in this encounter Care Teams Wind Turbine Engineer Relationship Specialty Start Date End Date Sariah Vickers ANP [address] [place] [address] PCP - General Family Medicine 09/23/19 Yuri Pierre, MikeD [address] [place] [address] Pharmacist Internal Medicine 05/05/24 02/03/25 Basilio Hall MD 5[address] [place] [address] Cardiology 05/17/24 01/10/25 Ron Preciado MD 5 [place] [address] Pulmonary Disease 05/17/24 Felipe Alanis MD [address] [facility] 3rd [place] [address] Cardiology 01/11/25 Rosemary Moses NP [address] [place] [address] Urology 01/11/25 [address]mm [address] 3rd [place] [address] Gastroenterology 01/11/25 documented as of this encounter
--- OUTSIDE RECORDS SUMMARY | 2025-02-03 17:44 | XMS_ITS | Encounter Summary ---
Author Organization [employer] Address 75 [facility] 7t [place] [address] Care Team Providers Care Geoscience Laboratory Technician Name Role Phone Sariah Vickers Primary Care Provider [phone] Yuri Pierre PharmD Unavailable Basilio Hall MD Unavailable Ron Preciado MD Unavailable [phone] Felipe Alanis MD Unavailable [phone] Rosemary Moses NP Unavailable May Unavailable Reason for Visit * Reason Comments Med Refill Encounter Details Date Type Department Care Team (Late st Contact Info) Description 06/17/2024 Refill [facility] 230 [place] [address] Sariah Vickers ANP 230 [place] [address] Neck pain Social History Tobacco Use Types [...] Info) Description 04/04/2025 10:00 AM EST Telemedicine [facility] 505 [place] [address] Azeb Hall, RN 505 [place] [address] 05/10/2025 1:00 PM EDT Office Visit [facility] [address] [place] [address] Sariah Vickers ANP 230 [place] [address] documented as of this encounter Goals Goal [...] documented as of this encounter Care Teams Geoscience Laboratory Technician Relationship Specialty Start Date End Date Sariah Vickers ANP 230 [place] [address] PCP - General Family Medicine 09/23/19 Yuri Pierre, PharmD 230 [place] [address] Pharmacist Internal Medicine 05/05/24 02/03/25 Basilio Hall MD 596 [place] [address] Cardiology 05/17/24 01/10/25 Ron Preciado MD 5 [place] [address] Pulmonary Disease 05/17/24 Felipe Alanis MD [address] 3rd [place] [address] Cardiology 01/11/25 Rosemary Moses NP [address] [place] [address] Urology 01/11/[address] 3rd [place] [address] Gastroenterology 01/11/25 documented as of this encounter
--- OUTSIDE RECORDS SUMMARY | 2025-02-03 17:44 | XMS_ITS | Encounter Summary ---
Author Organization [employer] Address [address] [facility] [address] 7t [place] [address] Care Team Providers Care Economic Development Director Name Role Phone Sariah Vickers Primary Care Provider [phone] Yuri Pierre PharmD Unavailable [phone] Basilio Hall MD Unavailable Ron Preciado MD Unavailable [phone] Felipe Alanis MD Unavailable [phone] Rosemary Moses NP Unavailable May Unavailable Reason for Visit * Reason Comments Med Refill Patient walked [facility] pharmacy hasn't finished her Medbox due to missing refill for medication Gabapetin . Encounter Details Date Type Department Care Team (Late st Contact Info) Description 10/03/2023 Refill [facility] 230 [place], [place] [phone] Sariah Vickers ANP 230 [place], [place] [phone] Chronic SI joint pain Social History Tobacco [...] Description 04/04/2025 10:00 AM EST Telemedicine [facility] 505 [place] [address] Azeb Hall, RN 505 [place] [address] 05/10/2025 1:00 PM EDT Office Visit [facility] 230 [place] [address] Sariah Vickers, ANP 230 [place] [address] documented as of this encounter Goals Goal [...] documented as of this encounter Care Teams Economic Development Director Relationship Specialty Start Date End Date Sariah Vickers ANP 230 [place] [address] PCP - General Family Medicine 09/23/19 Yuri Pierre, MikeD [address] [place] [address] Pharmacist Internal Medicine 05/05/24 02/03/25 Basilio Hall MD 596 [place] [address] Cardiology 05/17/24 01/10/25 Ron Preciado MD 5 [place] [address] Pulmonary Disease 05/17/24 Felipe Alanis MD [address] 3rd [place] [address] Cardiology 01/11/25 Rosemary Moses NP [address] [place] [address] Urology 01/11/[address] [place] [address] 3rd [place] [address] Gastroenterology 01/11/25 documented as of this encounter
--- OUTSIDE RECORDS SUMMARY | 2025-02-03 17:44 | XMS_ITS | Encounter Summary ---
Author Organization [employer] Address 75 [facility] 7t [place] [address] Care Team Providers Care Rn Oncology Clinical Name Role Phone Sariah Vickers Primary Care Provider Yuri Pierre PharmD Unavailable Basilio Hall MD Unavailable Ron Preciado MD Unavailable [phone] Felipe Alanis MD Unavailable Rosemary Moses NP Unavailable May Unavailable Reason for Visit * Reason Comments Med Refill Encounter Details Date Type Department Care Team (Late st Contact Info) Description 11/24/2023 Refill [facility] 230 [place] [address] Sariah Vickers ANP 230 [place] [address] Vertigo Social History Tobacco Use Types Packs/Day [...] Info) Description 04/04/2025 10:00 AM EST Telemedicine [facility] 505 [place] [address] Azeb Hall, MARTIN 505 [place] [address] 05/10/2025 1:00 PM EDT Office Visit [facility] 230 [place] [address] Sariah Vickers ANP 230 [place] [address] documented as of this encounter Goals Goal [...] as of this encounter Care Teams Rn Oncology Clinical Relationship Specialty Start Date End Date Sariah Vickers ANP 230 [place] [address] PCP - General Family Medicine 09/23/19 Yuri Pierre, PharmD 230 [place] [address] Pharmacist Internal Medicine 05/05/24 02/03/25 Basilio Hall MD 596 [place] [address] Cardiology 05/17/24 01/10/25 Ron Preciado MD 5 [place] [address] Pulmonary Disease 05/17/24 Felipe Alanis MD [address]rd [place] [address] Cardiology 01/11/25 Rosemary Moses NP [address] [place] [address] Urology 01/11/[address] 3rd [place] [address] Gastroenterology 01/11/25 documented as of this encounter
--- OUTSIDE RECORDS SUMMARY | 2025-02-03 17:44 | XMS_ITS | Encounter Summary ---
Author Organization [employer] Address 75 [facility] 7t [place] [address] Care Team Providers Care Retrimmer Name Role Phone Sariah Vickers Primary Care Provider Yuri Pierre PharmD Unavailable Basilio Hall MD Unavailable [phone] Ron Preciado MD Unavailable [phone] Felipe Alanis MD Unavailable Rosemary Moses NP Unavailable May Unavailable Reason for Visit * Reason Onset Date Comments Med Refill 02/04/2024 Encounter Details Date Type Department Care Team (Late st Contact Info) Description 02/04/2024 Telephone [facility] 230 [place] [address] Sariah Vickers ANP 230 [place] [address] Med Refill Social History Tobacco Use Types [...] 50 MG tablet To be sent to: [facility] - [place], [place] - [address] [place] [address] documented in this encounter Plan of Treatment Upcoming Encounters Date Type Department Care Team (Late st Contact Info) Description 04/04/2025 10:00 AM EST Telemedicine [facility] 505 [place] [address] Azeb Hall RN 505 [place] [address] 05/10/2025 1:00 PM EDT Office Visit [facility] 230 [place] [address] Sariah Vickers ANP 230 [place] [address] documented as of this encounter Goals Goal Patient Goal Type Associated Problems Recent Progress Patient-Stated? Author Blood Pressure < 140/90 Blood Pressure 124/80(2024 11:12 AM EST) No Phanis-Gambl Aida urbina, PharmD [...] documented as of this encounter Care Teams Retrimmer Relationship Specialty Start Date End Date Sariah Vickers ANP 230 [place] [address] PCP - General Family Medicine 09/23/19 Yuri Pierre, MikeD 230 [place] [address] Pharmacist Internal Medicine 05/05/24 02/03/25 Basilio Hall MD 596 [place] [address] Cardiology 05/17/24 01/10/25 Ron Preciado MD 5 [place] [address] Pulmonary Disease 05/17/24 Felipe Alanis MD [address] [facility] 3rd [place] [address] Cardiology 01/11/25 Rosemary Moses NP [address] [place] [address] Urology 01/11/25 Umm [place] [address] 3rd Floor [place] [address] Gastroenterology 01/11/25 documented as of this encounter
--- OUTSIDE RECORDS SUMMARY | 2025-02-03 17:45 | XMS_ITS | Encounter Summary ---
Author Organization [employer] Address 75 [facility] 7t [place] [address] Care Team Providers Care Supervisor Plate Pasting Name Role Phone Sariah Vickers Primary Care Provider Yuri Pierre PharmD Unavailable [phone] Basilio Hall MD Unavailable [phone] Ron Preciado MD Unavailable [phone] Felipe Alanis MD Unavailable Rosemary Moses NP Unavailable May Unavailable Reason for Visit * Reason Comments Med Refill Encounter Details Date Type Department Care Team (Late st Contact Info) Description 11/12/2024 Refill [facility] 230 [place] [address] Sariah Vickers ANP 230 [place] [address] Neck pain Social History Tobacco Use Types [...] Description 04/04/2025 10:00 AM EST Telemedicine [facility] 505 [place] [address] Azeb Hall, RN 505 [place] [address] 05/10/2025 1:00 PM EDT Office Visit [facility] 230 [place] [address] Sariah Vickers, ANP 230 [place] [address] documented as of this encounter Goals Goal [...] as of this encounter Care Teams Supervisor Plate Pasting Relationship Specialty Start Date End Date Sariah Vickers ANP 230 [place] [address] PCP - General Family Medicine 09/23/19 Yuri Pierre, MikeD [address] [place] [address] Pharmacist Internal Medicine 05/05/24 02/03/25 Basilio Hall MD [address] [place] [address] Cardiology 05/17/24 01/10/25 Ron Preciado MD 5 [place] [address] Pulmonary Disease 05/17/24 Felipe Alanis MD 11 [facility] 3rd [place] [address] Cardiology 01/11/25 Rosemary Moses NP [address] [place] [address] Urology 01/11/25 Jodee May 11 [facility] 3rd [place] [address] Gastroenterology 01/11/25 documented as of this encounter
--- OUTSIDE RECORDS SUMMARY | 2025-02-03 17:45 | XMS_ITS | Encounter Summary ---
Author Organization [employer] Address 75 [facility] 7t [place] [address] Care Team Providers Care Reproduction Production Manager Name Role Phone Sariah Vickers Primary Care Provider [phone] Yuri Pierre PharmD Unavailable [phone] Basilio Hall MD Unavailable Ron Preciado MD Unavailable [phone] Felipe Alanis MD Unavailable [phone] Rosemary Moses NP Unavailable May Unavailable Reason for Visit * Reason Comments Med Refill Encounter Details Date Type Department Care Team (Late st Contact Info) Description 02/28/2023 Refill [facility] 230 [place] [address] Sariah Vickers ANP 230 [place] [address] Cervicalgia Social History Tobacco Use Types Packs/Day [...] the past 12 months, has t he [employer], gas, oil or water company threatened to [...] Info) Description 04/04/2025 10:00 AM EST Telemedicine [facility] 505 [place] [address] Azeb Hall, MARTIN 505 [place] [address] 05/10/2025 1:00 PM EDT Office Visit [facility] 230 [place] [address] Sariah Vickers ANP 230 [place] [address] documented as of this encounter Goals Goal Patient Goal Type Associated Problems Recent Progress Patient-Stated? Author Blood Pressure < 140/90 Blood Pressure 124/80(2024 11:12 AM EST) No Phanis-Ronaldo urbina, Aida, PharmD Record Your Blood Sugar As Directed General No Phanis-Gambl ciara, Aida, PharmD Hemoglobin A1c < 7 Result Component 6.6( 12:59 PM EST) No Phanis-Gambl ciara, Aida, PharmD documented as of this encounter Visit Diagnoses Diagnosis Cervicalgia documented in this encounter Care Teams Reproduction Production Manager Relationship Specialty Start Date End Date Sariah Vickers ANP 230 [place] [address] PCP - General Family Medicine 09/23/19 Yuri Pierre, MikeD 230 [place] [address] Pharmacist Internal Medicine 05/05/24 02/03/25 Basilio Hall MD 596 [place] [address] Cardiology 05/17/24 01/10/25 Ron Preciado MD 5 [place] [address] Pulmonary Disease 05/17/24 Felipe Alanis MD [address]rd [place] [address] Cardiology 01/11/25 Rosemary Moses NP [address] [place] [address] Urology 01/11/25 Jodee May 11 [facility] 3rd [place] [address] Gastroenterology 01/11/25 documented as of this encounter
--- OUTSIDE RECORDS SUMMARY | 2025-02-03 17:45 | XMS_ITS | Encounter Summary ---
Author Organization [employer] Address 75 [facility] 7t [place] [address] Care Team Providers Care Warehouse Stocker Name Role Phone Sariah Vickers Primary Care Provider Yuri Pierre PharmD Unavailable [phone] Basilio Hall MD Unavailable Ron Preciado MD Unavailable [phone] Felipe Alanis MD Unavailable [phone] Rosemary Moses NP Unavailable May Unavailable Reason for Visit * Reason Onset Date Comments Appointment Request 09/03/2024 Encounter Details Date Type Department Care Team (Late st Contact Info) Description 09/03/2024 Telephone [facility] MED[facility] 230 [place], [place] [phone] Sariah Vickers ANP 230 [place], [place] [phone] Appointment Request Social History Tobacco Use Types [...] when making the apt. Contact pt at [phone] documented in this encounter Plan of Treatment Upcoming Encounters Date Type Department Care Team (Late st Contact Info) Description 04/04/2025 10:00 AM EST Telemedicine [facility] 505 [place] [address] Azeb Hall, MARTIN 505 [place] [address] 05/10/2025 1:00 PM EDT Office Visit [facility] [address] [place] [phone] Sariah Vickers ANP 230 [place] [address] documented as of this encounter Goals Goal [...] as of this encounter Care Teams Warehouse Stocker Relationship Specialty Start Date End Date Sariah Vickers ANP 230 [place] [address] PCP - General Family Medicine 09/23/19 Yuri Pierre, MikeD 230 [place] [address] Pharmacist Internal Medicine 05/05/24 02/03/25 Basilio Hall MD 596 [place] [address] Cardiology 05/17/24 01/10/25 Ron Preciado MD 5 [place] [address] Pulmonary Disease 05/17/24 Felipe Alanis MD [address] 3rd [place] [address] Cardiology 01/11/25 Rosemary Moses NP [address] [place] [address] Urology 01/11/25 Jodee, May [address] [place] [address] Drive 3rd [place] [address] Gastroenterology 01/11/25 documented as of this encounter
--- OUTSIDE RECORDS SUMMARY | 2025-02-03 17:45 | XMS_ITS | Encounter Summary ---
Author Organization [employer] Address 75 [facility] 7t [place] [address] Care Team Providers Care Biology Department Chair Name Role Phone Sariah Vickers Primary Care Provider Yuri Pierre PharmD Unavailable [phone] Basilio Hall MD Unavailable [phone] Ron Preciado MD Unavailable [phone] Felipe Alanis MD Unavailable Rosemary Moses NP Unavailable May Unavailable Reason for Visit * Reason Comments Med Refill Encounter Details Date Type Department Care Team (Late st Contact Info) Description 12/27/2022 Refill [facility] 230 [place] [address] Sariah Vickers ANP 230 [place] [address] Neck pain Social History Tobacco Use Types [...] the past 12 months, has t he [employer], gas, oil or water company threatened to shut off services in your home? No 12/04/2022 Depression Answer Date Recorded Patient Health Questionnaire-2 Score 0 02/05/2022 Comments Unknown Sex and Gender Information Value Date Recorded Sex Assigned at Female 12/17/2021 10:16 AM EDT Legal Sex Female 10:16 AM EDT Gender Identity Female 12/17/2021 10:16 AM EDT Sexual Orientation Lesbian or Storng 12/17/2021 10 :16 AM EDT documented as of this encounter Plan of Treatment Upcoming Encounters Date Type Department Care Team (Late st Contact Info) Description 04/04/2025 10:00 AM EST Telemedicine [facility] 505 [place] [address] Azeb Hall, MARTIN 505 [place] [address] 05/10/2025 1:00 PM EDT Office Visit [facility] 230 [place] [address] Sariah Vickers ANP 230 [place] [address] documented as of this encounter Goals Goal Patient Goal Type Associated Problems Recent Progress Patient-Stated? Author Blood Pressure < 140/90 Blood Pressure 124/80(2024 11:12 AM EST) No Piers-Gambl ciara, Aida, PharmD Record Your Blood Sugar As Directed General No Piers-Gambl e, Aida, PharmD Hemoglobin A1c < 7 Result Component 6.6( 12:59 PM EST) No Piers-Gambl e, Aida, PharmD documented as of this encounter Visit Diagnoses Diagnosis Neck pain Cervicalgia documented in this encounter Care Teams Biology Department Chair Relationship Specialty Start Date End Date Sariah Vickers ANP 230 [place] [address] PCP - General Family Medicine 09/23/19 Yuri Pierre, Dileep 230 [place] [address] Pharmacist Internal Medicine 05/05/24 02/03/25 Basilio Hall MD 596 [place] [address] Cardiology 05/17/24 01/10/25 Ron Preciado MD 5 [place] [address] Pulmonary Disease 05/17/24 Felipe Alanis MD [address] [facility] 3rd [place] [address] Cardiology 01/11/25 Rosemary Moses NP [address] [place] [address] Urology 01/11/[address] [facility] 3rd [place] [address] Gastroenterology 01/11/25 documented as of this encounter
--- OUTSIDE RECORDS SUMMARY | 2025-02-03 17:45 | XMS_ITS | Clinical Summary ---
Author Organization [facility] Address 175 [place] [address] Phone Care Team Providers Care Patient Safety Sitter Name Role Phone Sariah Vickers NP Primary Care Provider [phone] Social History Tobacco Use Types Packs/Day Years Used Date Smoking Tobacco: Never Assessed Comments Unknown Sex and Gender Information Value Date Recorded Sex Assigned at Not on file Legal Sex Female 11:21 PM EST Gender Identity Not on file Sexual Orientation Not on file Plan of Treatment Upcoming Encounters Date Type Department Care Team ([facility] Contact Info) Description 04/18/2025 1:45 PM EST Office Visit Orthopedic Surgery [place] [address] [phone] Neto Anthony, DPEstefania [address] [address] Health Maintenance Due Date Last Done Comments [...] HIV Screening 01/29/2022 Hepatitis C Screening 01/29/2022 Medicare Annual Wellness Visit 01/29/2022 Social Influencers of Health Screening 01/29/2022 [...] patient's age to complete this topic Insurance [facility] MEDICARE Member Subscriber Plan / Payer (Ef fective 2013-Present) Name:NUVIA DA SILVA Relation to Subscriber:Self Name:Nuvia Da Silva Payer ID:[id number] Group ID:[id number] Type:Not on file Address: [facility] [address] [address] Care Teams Patient Safety Sitter Relationship Specialty Start Date End Date Sariah Vickers NP [address] [place] [phone] PCP - General 12/03/23
--- OUTSIDE RECORDS SUMMARY | 2025-02-03 17:45 | XMS_ITS | Encounter Summary ---
Author Organization [employer] Address 75 [facility] 7t [place] [address] Care Team Providers Care Electrician Research Name Role Phone Sariah Vickers Primary Care Provider Yuri Pierre PharmD Unavailable Basilio Hall MD Unavailable Ron Preciado MD Unavailable [phone] Felipe Alanis MD Unavailable [phone] Rosemary Moses NP Unavailable May Unavailable Reason for Visit * Reason Onset Date Comments Referral 08/02/2024 Encounter Details Date Type Department Care Team (Late st Contact Info) Description 08/02/2024 Telephone [facility] MEDICINE 230 [place], [place] [phone] Sariah Vickers ANP 230 [place], [place] [phone] Referral Social History Tobacco Use Types Packs/Day [...] for vertigo therapy. Please contact pt at [phone]. (Telugu Speaker) documented in this encounter Plan of Treatment Upcoming Encounters Date Type Department Care Team ([facility] st Contact Info) Description 04/04/2025 10:00 AM EST Telemedicine [facility] 505 [place] [address] Azeb Hall, RN 505 [place] [address] 05/10/2025 1:00 PM EDT Office Visit [facility] MEDICINE 230 [place] [address] Sariah Vickers ANP 230 [place] [address] documented as of this encounter Goals Goal [...] documented as of this encounter Care Teams Electrician Research Relationship Specialty Start Date End Date Sariah Vickers ANP 230 [place] [address] PCP - General Family Medicine 09/23/19 Yuri Pierre, MikeD [address] [place] [address] Pharmacist Internal Medicine 05/05/24 02/03/25 Basilio Hall MD 5[address] [place] [address] Cardiology 05/17/24 01/10/25 Ron Preciado MD 5 [place] [address] Pulmonary Disease 05/17/24 Felipe Alanis MD 11 [facility] 3rd [place] [address] Cardiology 01/11/25 Rosemary Moses NP [address] [place] [address] Urology 01/11/25 Jodee Umm [address] 3rd Floor [place] [address] Gastroenterology 01/11/25 documented as of this encounter
--- OUTSIDE RECORDS SUMMARY | 2025-02-03 17:45 | XMS_ITS | Encounter Summary ---
Author Organization [employer] Address 75 [facility] 7t [place] [address] Care Team Providers Care Forest Practices Field Coordinator Name Role Phone Sariah Vickers Primary Care Provider [phone] Yuri Pierre PharmD Unavailable [phone] Basilio Hall MD Unavailable Ron Preciado MD Unavailable [phone] Felipe Alanis MD Unavailable [phone] Rosemary Moses NP Unavailable May Unavailable Reason for Visit * Reason Comments Med Refill Encounter Details Date Type Department Care Team (Late st Contact Info) Description 12/19/2022 Refill [facility] MEDICINE 230 [place] [address] Sariah Vickers ANP 230 [place] [address] Vertigo Social History Tobacco Use Types Packs/Day [...] the past 12 months, has t he [employer], gas, oil or water company threatened to [...] Info) Description 04/04/2025 10:00 AM EST Telemedicine [facility] 505 [place] [address] Azeb Hall, MARTIN 505 [place] [address] 05/10/2025 1:00 PM EDT Office Visit [facility] MEDICINE 230 [place] [address] Sariah Vickers ANP 230 [place] [address] documented as of this encounter Goals Goal Patient Goal Type Associated Problems Recent Progress Patient-Stated? Author Blood Pressure < 140/90 Blood Pressure 124/80(2024 11:12 AM EST) No Veronica Raglandsa, PharmD Record Your Blood Sugar As Directed General No Phanis-GambVeronica bucksa, PharmD Hemoglobin A1c < 7 Result Component 6.6( 12:59 PM EST) No Phanis-Ronaldo urbina Aida, PharmD documented as of this encounter Visit Diagnoses Diagnosis Vertigo Dizziness and giddiness documented in this encounter Care Teams Forest Practices Field Coordinator Relationship Specialty Start Date End Date Sariah Vickers ANP 230 [place] [address] PCP - General Family Medicine 09/23/19 Yuri Pierre, Dileep 230 [place] [address] Pharmacist Internal Medicine 05/05/24 02/03/25 Basilio Hall MD 596 [place] [address] Cardiology 05/17/24 01/10/25 Ron Preciado MD 5 [place] [address] Pulmonary Disease 05/17/24 Felipe Alanis MD [address] 3rd [place] [address] Cardiology 01/11/25 Rosemary Moses NP [address] [place] [address] Urology 01/11/25 [address]odee Umm [address] 3rd [place] [address] Gastroenterology 01/11/25 documented as of this encounter
--- OUTSIDE RECORDS SUMMARY | 2025-02-03 17:45 | XMS_ITS | Encounter Summary ---
Author Organization [employer] Address [address] [place] [address] Care Team Providers Care Tail Dogger Name Role Phone Sariah Vickers Primary Care Provider Yuri Pierre PharmD Unavailable Basilio Hall MD Unavailable [phone] Ron Preciado MD Unavailable [phone] Felipe Alanis MD Unavailable [phone] Rosemary Moses NP Unavailable May Unavailable Reason for Visit * Reason Onset Date Comments Nurse Triage 01/14/2023 Encounter Details Date Type Department Care Team (Late st Contact Info) Description 01/14/2023 Telephone [facility] [address] [place] [address] Sariah Vickers ANP [address] [place] [address] Nurse Triage Social History Tobacco Use Types [...] the past 12 months, has t he [employer], oil or water [employer] threatened to shut off services in your [...] 01/14/2023 9:26 AM EST Called pt. Via [employer] booking prizer [id number] Kelly. Pt. States that she has been having a fire feeling in her legs. Its like A burning that goes down her legs . Pt. Unsure if it because of her Diabetes. Pt. [place] [facility] [place] at 10am. Will send note to clinical floor care technician to have note put in [...] pain now, pt was [place] [facility] [place] in [place]. Pt is still symptomatic The caller accepted this outcome Please contact pt at [phone] (organic extractions technician needed) documented in this encounter Plan of Treatment Upcoming Encounters Date Type Department Care Team ([facility] st Contact Info) Description 04/04/2025 10:00 AM EST Telemedicine [facility] [address] [place] [address] Azeb Hall RN [address] [place] [address] 05/10/2025 1:00 PM EDT Office Visit [facility] [address] [place] [address] Sariah Vickers ANP [address] [place] [address] documented as of this encounter Goals Goal [...] on filedocumented in this encounter Care Teams Tail Dogger Relationship Specialty Start Date End Date Sariah Vickers ANP [address] [place] [id number] PCP - General Family Medicine 09/23/19 Yuri Pierre, PharmD [address] [place] [address] Pharmacist Internal Medicine 05/05/24 02/03/25 Basilio Hall MD [address] [place] [address] Cardiology 05/17/24 01/10/25 Ron Preciado MD [address] [place] [address] Pulmonary Disease 05/17/24 Felipe Alanis MD [address] [place] [address] Cardiology 01/11/25 Rosemary Moses NP [address] [place] [address] Urology 01/11/[address] [place] [address] Gastroenterology 01/11/25 documented as of this encounter
--- OUTSIDE RECORDS SUMMARY | 2025-02-03 17:45 | XMS_ITS | Clinical Summary ---
Author Organization [employer] Address [address] [facility] [facility] [address] [place] [address] Care Team Providers Care Geology Teacher Name Role Phone Alee Anthony PAGE Primary Care Provider [phone] Yuri Pierre PharmD Unavailable [phone] Ron Preciado MD Unavailable [phone] Felipe Alanis MD Unavailable Rosemary Moses [...] mouth in the morning. Active Lactobacillus-In ulin ([facility] [employer] [facility]) capsule 023 Active Xolair 150 MG/ML [...] during the day. 025 Active Continuous Glucose Local Sales Manager (FreeStyle Jalil 3 Ashdown) device 1 each Once per day. Use [...] EVERY EVENING 90 tablet 1 025 Active Embecta Pen Needle Lorna 32G X 4 MM miscIndications: Type 2 diabetes mellitus with hyperlipidemia (HCC) USE DIRECTED THREE TIMES DAILY 100 each 5 01/12/20 25 1:38 PM EST 025 Active traMADol (Ultram) 50 MG tabletIndication s:Cervicalgia TAKE 1 TABLET BY MOUTH EVERY TWELVE HOURS NEEDED FOR SEVERE PAIN 60 tablet 01/18/20 9:48 AM EST 025 Active enalapril (Vasotec) [...] 5:01 PM EST 025 Active Continuous Glucose Local Sales Manager (Dexcom G7 Local Sales Manager) deviceIndication s:Type 2 diabetes mellitus with hyperlipidemia (HCC) USE DIRECTED TO TEST BLOOD SUGAR EVERY DAY 1 each Active Glutose 15 40 % gel oral gel TAKE 15 GRAMS BY MOUTH DAILY NEEDED FOR LOW BLOOD SUGAR DIRECTED 112.5 g 2 02/04/20 25 5:03 PM EST 025 Active BD Pen Needle Lorna U/F [...] 60 tablet 025 2024 Discontinued Continuous Glucose Local Sales Manager (Dexcom G7 Local Sales Manager) deviceIndication s:Type 2 diabetes mellitus with hyperlipidemia (HCC) 1 each Once per day for 1 day. 1 each 01/06/20 12:10 PM EST 2024 Discontinued Glutose 15 40 % gel oral gel TAKE 15 GRAMS BY MOUTH ONCE DAILY NEEDED FOR LOW BLOOD SUGAR 112.5 g 2 01/06/20 25 4:21 PM EST 025 2024 Discontinued Glutose 15 40 % gel oral gel TAKE 15 GRAMS BY MOUTH ONCE DAILY NEEDED FOR LOW BLOOD SUGAR 112.5 g 2 02/02/20 25 1:42 PM EST 2024 Discontinued sulfamethoxazole -trimethoprim (Bactrim [...] to seal bleeding vessel Will refer to grain receiver for followup if needed Return precautions for [...] (10/19/2024 5:45 PM EDT): During IBH Consult Nuvai presenting with depressed mood, crying spells , [...] is currently connected with MH services through [facility] Pt needing additional support due to her [...] her family. She will continue services with [facility] for OP therapy and psychiatry services. clinician will be available if needed during next medical appointment. PLAN: (check all that apply) Continue with current services (defined as services in the past 12 months) . Pt is engaged with OP therapy and psychiatry services with [facility] @ [facility] Excessive attrition of teeth, generalized 2023 Right [...] her family. She will continue services with [facility] for OP therapy and psychiatry services. clinician will be available if needed during next medical appointment. PLAN: (check all that apply) Continue with current services (defined as services in the past 12 months) . Pt is engaged with OP therapy and psychiatry services with [facility] @ [facility] Fibromyalgia 07/31/2022 Asthma-COPD overlap syndrome (CMS/HCC) Right [...] for possible plantar fasciitis -referred today to software reverse engineer x ongoing discomfort -may need orthopedic shoes [...] individual therapy and psychiatry with N at [facility]. Sees psych provider every two months and therapist bi-weekly. Pt will reach out to clinician as needed. Assessment & Plan (04/10/2023 11:08 AM EST): PLAN: (check all that apply) Behavioral Health Integration Plan Patient Self Plan Patient to reach out to [facility] team as needed Assessment & Plan [...] 10/29/2022 Acute asthma exacerbation 07/31/2022 COPD exacerbation ([facility]) 07/31/2022 05/17/2024 Assessment & Plan (10/27/2023 [...] organization. Date Type Department Care Team Description 02/03/2025 Travel 02/01/2025 Telephone [facility] MEDICINE [address] [place] [address] Anthony Ruiz ANP april02/01/2025 Refill [facility] WALK-IN CENTER [address] [place] [address] Anthony Ruiz ANP 01/24/2025 Refill [facility] WALK-IN CENTER [address] [place] [address] Samantha Kumar DO Type 2 diabetes mellitus with hyperlipidemia ([facility]) 01/19/2025 2:40 PM EST Office Visit [facility] WALK-IN CENTER [address] [place] [address] Chava Presley MD Cutaneous abscess of right lower extremity (Primary Dx); Pharyngitis, unspecified etiology; Neck pain 01/19/2025 Orders Only [facility] WALK-IN CENTER [address] [place] [address] Chava Presley MD 01/19/2025 Travel 01/16/2025 Refill [facility] MEDICINE [address] [place] [address] Anthony Ruiz ANP Essential hypertension 01/12/2025 Refill [facility] CHC MED & PEDS [address] [place] [address] Anthony Ruiz ANP Cervicalgia 01/11/2025 1:00 PM EST Office Visit [address] [address] Anthony Ruiz ANP Type 2 diabetes mellitus with hyperlipidemia (HCC) (Primary Dx); Hypothyroidism, unspecified type; Elevated antinuclear antibody (REX) level; Transaminitis; Mixed anxiety and depressive disorder; Moderate episode of recurrent major depressive disorder (CMS/HCC) (HCC) 01/11/2025 Travel 01/09/[address] [address] Anthony Ruiz ANP Type 2 diabetes mellitus with hyperlipidemia ([facility]/HCC) 01/07/2025 9:30 AM EST Clinical Support [address] [address] Azeb Hall RN Long-term current use of opiate analgesic (Primary Dx) 01/07/2025 Travel 01/05/2025 Refill [facility] WALK-IN CENTER [address] [place] [address] Anthony Ruiz ANP 12/27/2024 Travel 12/21/2024 Refill [facility] WALK-IN CENTER [address] [place] [address] Anthony Ruiz ANP 12/20/[address] [address] Anthony Ruiz ANP ER Follow-up 12/20/2024 Refill [facility] MEDICINE [address] [place] [address] Anthony Ruiz ANP Chronic SI joint pain 12/18/2024 Orders Only GENERIC EXTERNAL DATA DEPARTMENT Provider, Generic External Data 12/17/2024 Refill [facility] MEDICINE [address] [place] [address] Anthony Ruiz ANP Chronic SI joint pain 12/16/2024 2:20 PM EDT Office Visit [facility] WALK-IN CENTER [address] [place] [address] Jurcsak, Samantha, DO Type 2 diabetes mellitus with hyperlipidemia ([facility]/HCC) (Primary Dx) 12/16/2024 Telephone [facility] WALK-IN CENTER [address] [place] [address] Brittney Nava MD Triage 12/16/2024 Travel 12/15/2024 Orders Only [facility] External Provider, [facility] 12/15/2024 Telephone [facility] CHC MED & PEDS [address] [place] [address] Anthony Ruiz ANP Med Refill 12/13/2024 Refill [facility] MED & PEDS [address] [place] [address] Anthony Ruiz ANP Neck pain; Cervicalgia 12/12/2024 Refill [facility] MED & PEDS [address] [place] [address] Anthony Ruiz ANP Cervicalgia 12/10/2024 Refill [facility] MEDICINE [address] [place] [address] Anthony Ruiz ANP Type 2 diabetes mellitus with hyperlipidemia (HCC) 12/09/2024 Telephone [facility] MEDICINE [address] [place] [address] Anthony Ruiz ANP Results 12/08/2024 Orders Only GENERIC EXTERNAL DATA DEPARTMENT Provider, Generic External Data 12/07/2024 Refill [facility] WALKIN [address] [address] Anthony Ruiz ANP 12/03/2024 10:20 AM EDT Office Visit [facility] WALKIN [address] [address] Jess Coyne MD Acute bronchitis, unspecified organism (Primary Dx); Severe persistent asthma without complication (HCC) 12/02/2024 Refill [facility] MED & PEDS [address] [place] [address] Anthony Ruiz ANP Type 2 diabetes mellitus with diabetic neuropathy, with long-term current use of insulin (HCC) 12/01/2024 Refill [facility] MED & PEDS [address] [place] [address] Debra Faye MD Chronic bilateral low back pain, unspecified whether sciatica present 11/24/2024 Refill [facility] MEDICINE [address] [place] [address] Anthony Ruiz ANP Essential hypertension; Severe persistent asthma without complication (HCC) 11/23/2024 Orders Only [facility] MEDICINE [address] [place] [address] Anthony Ruiz ANP 11/19/2024 Refill [facility] WALK-IN CENTER [address] [place] [address] Chava Presley MD 11/16/2024 Refill [facility] CHC MED & PEDS [address] [place] [address] Anthony Ruiz ANP Type 2 diabetes mellitus with diabetic neuropathy, with long-term current use of insulin (CMS/HCC) 11/15/2024 Travel 11/14/2024 Refill [facility] CHC MED & PEDS [address] [place] [address] Anthony Ruiz ANP Cervicalgia 11/12/2024 Refill [facility] MEDICINE [address] [place] [address] Anthony Ruiz ANP Neck pain 11/11/2024 Refill [facility] ADULT DENTAL [address] [place] [address] Yogesh Gomez, JOHN 11/10/2024 3:30 PM EDT Immunization [address] [address] Yohana Quinn RN Encounter for immunization 11/10/2024 Travel 11/09/2024 9:00 AM EDT Office Visit [facility] WALK-IN CENTER [address] [place] [address] Chava Presley MD Type 2 diabetes mellitus with hyperlipidemia ([facility]) (Primary Dx) 11/09/2024 Telephone [facility] MED & PEDS [address] [place] [address] Azeb Hall RN 11/09/2024 Travel 11/08/2024 Telephone [facility] MEDICINE [address] [place] [address] Anthony Ruiz ANP Nurse Triage 11/05/2024 2:30 PM EDT Office Visit [address] [address] Hallie Tapia MD Boils (Primary Dx) 11/05/2024 Travel from Last 3 Months Immunizations Immunization [...] Sign Reading Time Taken Comments Blood Pressure 124/80 02/03/2025 11:12 AM EST Pulse 85 02/03/2025 11:12 AM EST Temperature 37.2 C (98.9 F) 01/19/2025 [...] [facility] PEDS [address] [place] [address] Azeb Hall, RN [address] [place] [address] 05/10/2025 1:00 PM EDT Office Visit [facility] MEDICINE [address] [place] [address] Anthony Ruiz, KAYLEE [address] [place], [place] [phone] Health Maintenance Due Date Last Done Comments [...] 01/19/2025 Dental X-Ray: Full Mouth 09/12/2026 09/12/2023, 2 08/2018 Eye Exam 09/24/2026 09/24/2024, 0809/2024, 09/24/2024, Additional [...] manage their type 2 diabetes No Azeb Hlal RN Patient has chronic kidney disease Care [...] chronic kidney disease No Kenan Clement MA Weekly blood pressure task Care Plan Weekly blood pressure task No Yuri Pierre PharmD Weekly blood pressure task Care Plan Weekly blood pressure task No Yuri Pierre PharmD Patient has chronic kidney disease Care Plan Patient has chronic kidney disease No Yuri Pierre PharmD Patient has chronic kidney disease Care Plan Patient has chronic kidney disease No Yuri Pierre PharmD Procedures Procedure Name Priority Date/Time Associated [...] proceed: Yes Instructions and paperwork completed: Yes [place] protocol: Procedure explained and questions answered to [...] sterile dressing. Post-procedure details: Procedure completion: Tolerated Result Harjinder Presley MD IN CLINIC/BEDSIDE ORDERABLES Fin al Result * POCT Influenza A manually resulted (01/19/2025 4:27 PM EST) [facility] Rapid Influenza A Ag Negative Negative, Indeterminate QC Media Lot # [id number] Lot# Expiration Date 111,126 Swab Nasopharyngeal structure / Unknown 01/19/2025 4:27 PM EST Result Harjinder Presley MD POINT OF CARE TEST ENTER/EDIT OR DERABLES Final Result * POCT Influenza B manually resulted (01/19/2025 4:26 PM EST) [facility] Rapid Influenza B Ag Negative Negative, Indeterminate QC Media Lot # [id number] Lot# Expiration Date 111,126 Swab 01/19/2025 4:26 PM EST us Chava Presley MD POINT OF CARE TEST ENTER/EDIT OR DERABLES Final Result * POCT rapid strep A manually resulted (01/19/2025 4:26 PM EST) [facility] Rapid Strep A Screen Negative Negative, None Detected QC Media Lot # [id number] Lot# Expiration Date 32,727 Swab 01/19/2025 4:26 PM EST Result Harjinder Presley MD POINT OF CARE TEST ENTER/EDIT OR DERABLES Final Result * Gram Stain Result (01/19/2025 4:25 PM EST) 01/19/2025 4:25 PM EST 01/20/2025 12:26 PM EST Comment:Leg Rt Narrative [facility] - 01/22/2025 10:26 AM EST [...] Aureus: Vancomycin 1(S) Specimen Source: Leg Right Chava Presley MD HISTORICAL/NON ORDERABLE LABS Fi nal Result [facility] [address] [place] [phone] * POCT Rapid COVID Ag (01/19/2025 4:25 PM EST) [facility] Rapid COVID Ag Negative QC Media Lot # [id number] Lot# Expiration Date [id number] Swab 01/19/2025 4:25 PM EST us Chava Presley MD POINT OF CARE TEST ENTER/EDIT OR DERABLES Final Result * (ABNORMAL) POCT Hgb A1c (01/11/2025 12:59 PM EST) [facility] Hemoglobin A1C 6.6(A) 4.0 - 5.7 % QC Media Lot # [id number] Lot# Expiration Date [id number] Blood 01/11/2025 12:5 9 PM EST Anthony [...] Urine Drug Screen (01/07/2025 9:33 AM EST) Pathologist [facility] THC Negative Negative Cocaine Screen, Urine Negative [...] - 01/07/2025 9:33 AM EST .UTOX cup Lot#[id number] Exp. 01/17/26 Internal Pass Control [facility] POINT OF CARE TEST ENTER/EDIT OR DERABLES Final Result * CT Abdomen Pelvis w/ Contrast (12/18/2024 9:02 AM EDT) Anatomical Region Laterality Modality Body, Pelvis, Abdomen Computed T omography 12/18/2024 9:02 AM EDT Narrative 12/18/2024 9:03 AM EDT [place] [address] [address] Scan Report Signed Patient: Nuvia Fay MR #: [id number] : 1960 Acct:[id number] Age/Sex: 64 / F ADM Date: 12/18/24 Loc: HO.ED Attending Dr: Ordering Physician: Kourtney Jones MD Date of Service: 12/18/24 Procedure(s): CT abdomen pelvis w IV con Accession Number(s): [id number] cc: Kourtney Jones MD; ANTHONY RUIZ NP Report Number: [id number]: Total DLP = 609.00 mGy-cm Reason for [...] in OV> 12/18/24901 DD/ 1 TD/TT: 12/18/24901 Transportation Attendant: Procedure Note Donotuseinterpreter, Image - 12/18/[address] [address] [address] Scan Report Signed Patient: Nuvia Fay EMR #: [id number] : 1960cct:[id number] Age/Sex: 64 / FADM Date: 12/18/24 Loc: HO.ED Attending Dr: Ordering Physician: Kourtney Jones MD Date of Service: 12/18/24 Procedure(s): CT abdomen pelvis w IV con Accession Number(s): [id number] cc: Kourtney Jones MD; ANTHONY RUIZ NP Report Number: [id number]: Total DLP = 609.00 mGy-cm Reason for [...] in OV> 12/18/24901 DD/ 1 TD/TT: 12/18/24901 Transportation Attendant: [facility] External Provider IMG CT PROCEDURES Edited Result - Final * (ABNORMAL) Urinalysis, Complete, with Reflex to Culture (12/18/2024 8:21 AM EDT) Color Urine Yellow [facility] Appearance Urine Clear [facility] PH 7.0 5.0 - 9.0 [facility] Glucose Urine UA Negative Negative mg/dL [facility] Urine Blood Negative Negative [facility] Specific [place] - Urine 1.025 1.005 - 1.025 [facility] Urine Protein Negative Neg-Trace mg/dL [facility] Urine Ketones Negative Negative mg/dL [facility] Nitrite Urine Negative Negative [facility] Leukocyte Esterase Urine Small (1+)(A) Negative [facility] RBC Urine 0-2 0 - 2 /HPF [facility] Urine WBC 0-5 0 - 5 /HPF [facility] Urine Squamous Epithelial Cell 0-2 0 - 2 /HPF [facility] Urine Bacteria None Seen None Seen [facility] Hyaline Casts, Urine 0-2 0 - 2 /LPF [facility] 12/18/2024 8:21 AM EDT 12/18/2024 8:26 AM EDT Narrative [facility] - 12/18/2024 8:45 AM EDT [id number], Clean Catch us Generic External Data Provider LAB URINE ORDERAB LES Final Result Performing Organization Address City/State/[facility] Co de Phone Number [facility] [address] [place] [phone] * XR Chest 1 View (12/18/2024 7:39 AM EDT) Anatomical Region Laterality Modality Chest Radiographic Griselda ging 12/18/2024 7:39 AM EDT Narrative 12/18/2024 7:42 AM EDT [address] [address] XRay Report Signed Patient: Nuvia Fay MR #: [id number] : 1960 Acct:[id number] Age/Sex: 64 / F ADM Date: 12/18/24 Loc: HO.ED Attending Dr: Ordering Physician: Kourtney Jones MD Date of Service: 12/18/24 Procedure(s): XR chest 1V Accession Number(s): [id number] cc: Kourtney Jones MD; ANTHONY RUIZ NP [...] in OV> 12/18/24740 DD/ 8 TD/TT: 12/18/24738 Transportation Attendant: Procedure Note Donotuseinterpreter, Image - 12/18/[address] [address] XRay Report Signed Patient: Nuvia Fay EMR #: [id number] : 1960cct:[id number] Age/Sex: 64 / FADM Date: 12/18/24 Loc: .ED Attending Dr: Ordering Physician: Kourtney Jones MD Date of Service: 12/18/24 Procedure(s): XR chest 1V Accession Number(s): [id number] cc: Kourtney Jones MD; ANTHONY RUIZ NP [...] in OV> 12/18/24740 DD/ 8 TD/TT: 12/18/24738 Transportation Attendant: [facility] External Provider IMG XR PROCEDURES Edited Result - Final * Culture, Urine, Routine (12/18/2024 12:00 AM EDT) Urine Urine specimen obtained by clean catch procedure / Unknown 12/18/2024 12/18/2024 Comment:UA Narrative [facility] - 12/19/2024 12:44 PM EST Urine Culture Report Result Urine Culture 10,000 to 50,000 cfu/ml Urine Culture Mixed bacterial yady characteristic of Urine Culture urogenital contamination. Specimen Source: Urine clean catch us Generic External Data Provider LAB MICROBIOLOGY - GENERAL ORDERABLES Final Result Performing Organization Address City/State/[facility] Co de Phone Number [facility] [address] [place] [phone] * US Abdomen Complete (12/15/2024 9:44 PM EDT) Anatomical Region Laterality Modality Abdomen Ultrasound 12/15/2024 9:44 PM EDT Narrative 12/15/2024 9:46 PM EDT [address] [address] Ultrasound Report Signed Patient: Nuvia Fay MR #: [id number] : 1960 Acct:[id number] Age/Sex: 64 / F ADM Date: 12/15/24 Loc: HO.US Attending Dr: Umm PERALTA Ordering Physician: Umm Ellsworth Date of Service: 12/15/24 Procedure(s): US abdomen complete Accession Number(s): [id number] cc: Umm Ellsworth; ANTHONY RUIZ NP Reason [...] in OV> 12/15/242144 DD/ 43 TD/TT: 12/15/242143 Transportation Attendant: Procedure Note Donotuseinterpreter, Image - 12/15/[address] [address] Ultrasound Report Signed Patient: Nuvia Fay EMR #: [id number] : 1960cct:[id number] Age/Sex: 64 / FADM Date: 12/15/24 Loc: HO.US Attending Dr: Umm PERALTA Ordering Physician: Umm Ellsworth Date of Service: 12/15/24 Procedure(s): US abdomen complete Accession Number(s): [id number] cc: Umm Ellsworth; ANTHONY RUIZ NP Reason [...] in OV> 12/15/242144 DD/ 43 TD/TT: 12/15/242143 Transportation Attendant: us [facility] External Provider IMG US PROCEDURES Edited Result - Final * XR Chest 2 Views (12/08/2024 2:21 PM EDT) Anatomical Region Laterality Modality Chest Radiographic Griselda ging 12/08/2024 2:21 PM EDT Narrative 12/08/2024 2:34 PM EDT [address] [address] XRay Report Signed Patient: Nuvia Fay MR #: [id number] : 1960 Acct:[id number] Age/Sex: 64 / F ADM Date: 12/08/24 Loc: .ED Attending Dr: Ordering Physician: Rosangela Ventura Date of Service: 12/08/24 Procedure(s): XR chest 2V Accession Number(s): [id number] cc: Rosangela Ventura; ANTHONY RUIZ NP Reason [...] 12/08/24 1431 DD/ 1421 TD/TT: 12/08/24 1428 Transportation Attendant: Procedure Note Donotuseinterpreter, Image - 12/08/[address] [place] [address] XRay Report Signed Patient: Nuvia Fay EMR #: [id number] : 1960cct:[id number] Age/Sex: 64 / FADM Date: 12/08/24 Loc: HO.ED Attending Dr: Ordering Physician: Rosangela Ventura Date of Service: 12/08/24 Procedure(s): XR chest 2V Accession Number(s): [id number] cc: Rosangela Ventura; ANTHONY RUIZ NP Reason [...] 12/08/24 1431 DD/ 1421 TD/TT: 12/08/24 1428 Transportation Attendant: [facility] External Provider IMG XR PROCEDURES Final Result * Influenza A B2 ID NOW (Bailey) (12/08/2024 2:09 PM EDT) IDNOW SERIAL# [id number] [facility] Influenza A Negative Negative [facility] [...] LAB MICROBIOLOGY - GENERAL ORDERABLES Final Result [facility] [address] [place] [phone] * COVID-19 ID NOW ([employer]) (12/08/2024 2:09 PM EDT) IDNOW SERIAL# [id number] [facility] COVID-19 TEST Negative Negative [facility] COVID-19 NOTE See Note [facility] Comment: Results are for the identification of SARS-CoV2 RNA. TheSARS-CoV2 RNA is generally detectable in respiratory samplesduring the acute phase of infection. Positive results areindicative of the presence of SARS-CoV-2 RNA; clinicalcorrelation with patient history and other diagnosticinformation is necessary to determine patient infectionstatus. Positive results do not rule out bacterial infectionor co- infection with other viruses.Testing facilities within the [facility] and [facility] are required to report all positive results [...] GNOSTICS ORDERABLES Final Result Performing Organization Address [facility] de Phone Number [facility] [address] [place] [phone] * High Sensitivity Troponin I (12/08/2024 2:09 PM EDT) [facility] TROPONIN I HIGH SENSITIVITY <2.7 <3.5 - 17.0 ng/L [facility] Comment:The Bailey high sens itivity Troponin-I results should beused in conjunction with other diagnostic information suchas ECG, clinical observations and information, and patientsymptoms to aid in the diagnosis of DE. 12/08/2024 2:09 PM EDT 12/08/2024 2:13 PM EDT Generic External Data Provider LAB BLOOD ORDERAB LES Final Result Performing Organization Address [facility] Phone Number [facility] [address] [place] [phone] * (ABNORMAL) CBC auto differential (12/08/2024 2:09 PM EDT) [facility] White Blood Count 7.6 4.8 - [...] LES Final Result [facility] [address] [place], [place] [phone] * Magnesium (12/08/2024 2:09 PM EDT) Magnesium 2.1 1.6 - 2.6 mg/dL [facility] 12/08/2024 2:09 PM EDT 12/08/2024 2:13 PM EDT us Generic External Data Provider LAB BLOOD ORDERAB LES Final Result [facility] [address] [place] [phone] * (ABNORMAL) Comprehensive Metabolic Panel (12/08/2024 [...] Kidney Disea se: Estimated GFR < 60 mL/min/1.70w5Xytass Kidney Disease: Estimated GFR < 15 mL/min/1.73m2 [...] LES Final Result [facility] [address] [place] [phone] * Hepatitis C Antibody ([facility]) (08/06/2024) Hepatitis C Ab Nonreactive Blood 08/06/2024 Historical Provider LAB BLOOD ORDERABLES Kelsey l Result * HIV Ab/Ag ([facility]) (08/06/2024) HIV Ag/Ab Nonreactive Blood 08/06/2024 Historical Provider MD LAB BLOOD ORDERABLES Kelsey l Result * (ABNORMAL) Lipid Panel, Standard (06/18/2024 10:18 AM EDT) Triglycerides 122 <150 mg/dL [facility] LABS Comment:Desirable Triglyceri de: less than 150 mg/dLBorderline High Triglyceride 150-199 mg/dLHigh Triglyceride: 200-499 mg/dLVery High Triglyceride: greater than or equal to 5OO mg/dL Cholesterol 216(H) <200 mg/dL [facility] Comment:Desirable Cholestero l: less than 200 mg/dLBorderline High Cholesterol: 200-239 mg/dLHigh Cholesterol: greater than 239 mg/dL LDL Cholesterol Calculated 128(H) <100 mg/dL [facility] Comment:Desirable LDL: less than 100 mg/dLNear Optimal/Above Optimal LDL: 110- 129 mg/dLBorderline High LDL: 130-159 mg/dLHigh LDL: 160-189 mg/dLVery High LDL: greater than or equal to 190 mg/dL HDL Cholesterol 64 >40 mg/dL [facility] Comment:Desirable HDL: great er than 40 mg/dL Note: This HDL assay may give artificially low results in patients with liver disease. Blood Venous blood specimen / Unknown 06/18/2024 10:18 AM EDT 06/18/2024 11:08 AM EDT us Anthony Ruiz ANP LAB BLOOD ORDERABLES Final Resul t [facility] [address] [place] [address] [phone] * BI Mammogram Screening Tomosynthesis Bilateral (04/12/2024 1:48 PM EST) Anatomical Region Laterality Modality Breast Bilateral Mammography 04/12/2024 1:48 PM EST Narrative 04/17/2024 12:38 PM EST [address] [place] [address] Mammography Report Signed Patient: Nuvia Fay MR #: [id number] : 1960 Acct:[id number] Age/Sex: 63 / F ADM Date: 04/12/24 Loc: HO.MAMMO Attending Dr: Monica Lozano CNM Ordering Physician: Monica Lozano CNM Results: 2Beni gn Findings Date of Service: 04/12/24 Follow Up: 1 Year From [facility] ina Mammogram Procedure(s): MM tomosynthesis screening BI Accession Number(s): [id number] cc: Monica Lozano CNM; ANTHONY RUIZ NP [...] 04/17/24 1235 DD/ 1348 TD/TT: 04/12/24 1405 Transportation Attendant: Procedure Note Donotuseinterpreter, Image - 04/17/2024 [facility] [address] [place] [address] Mammography Report Signed Patient: Nuvia Fay EMR #: [id number] : 1960cct:[id number] Age/Sex: 63 / FADM Date: 04/12/24 Loc: HO.MAMMO Attending Dr: Monica Lozano CNM Ordering Physician: Monica LozanoMResults: 2Beni gn Findings Date of Service: 04/12/24Follow Up: 1 Year From Orig inal Mammogram Procedure(s): MM tomosynthesis screening BI Accession Number(s): [id number] cc: Monica Lozano CNM; ANTHONY RUIZ NP [...] 04/17/24 1235 DD/ 1348 TD/TT: 04/12/24 1405 Transportation Attendant: [facility] External Provider IMG BI PROCEDURES Edited Result - Final * Albumin, Random Urine W/Creatinine (01/02/2024 8:44 AM EST) Creatinine, Urine 47.20 mg/dL [facility] Microalbumin Urine 7.0 mg/L [facility] Microalbum Creatinine Ratio Ur 14.8 <30 ug/mg cr [facility] Comment:Albumin/Creatinine R atio Reference Ranges: Normal: < 30 ug/mg creatinine Microalbuminuria: 30 - 300 ug/mg creatinineClinical Albuminuria: > 300 ug/mg creatinine Urine (Urine, Random) 01/02/2024 8:44 AM EST 01/02/2024 11:09 AM EST [facility] LAB URINE ORDERABLES Final Resul t Performing Organization Address City/State/[facility] Co de Phone Number [facility] [address] [place] [phone] * (ABNORMAL) Hm Colonoscopy (12/27/2021) Colonoscopy Abnormal(A ) Normal Historical Provider HEALTH MAINTENANCE Final Result * HPV E6/E7 RFLX ALFRED 16 18/45 (05/09/2020 11:19 AM EDT) HPV mRNA E6/E7 rflx Not Detected Not Detected [facility] Comment: Methodology: Planning Lead-Mediated Amplification This assay detects E6/E7 viral messenger RNA (mRNA) from 14 high-risk HPV types (16,18,31,33,35,39,45,51,52,56,58,59,66,68). The analytical performance characteristics of this assay have been determined by [employer]. The modifications have not been cleared or approved by the FDA. This assay has been validated pursuant to the CLIA regulations and is used for clinical purposes. For additional information, please refer to http://education.Owlparrot/faq/PGZ941r5 (This link if provided for information/ educational purposes only.) THIS TEST WAS PERFORMED AT: [facility] [address] [place] [address] [address],[place] [address] HERNAN WARREN MD 05/09/2020 11:1 9 AM EDT [facility] HISTORICAL/NON ORDERABLE LABS Fi nal Result [facility] [address] from Last 3 Months or Most [...] 02/01/2025 Patient has chronic kidney disease 02/01/2025 Weekly blood pressure task 02/03/2025 Weekly blood pressure task 02/03/2025 Patient has chronic kidney disease 02/03/2025 Patient has chronic kidney disease 02/03/2025 Insurance [facility] Care Teams Geology Teacher Relationship Specialty Start Date End Date Anthony Ruiz ANP [address] [place] [address] PCP - General Family Medicine 09/23/19 Yuri Pierre, MikeD [address] [place] [address] Pharmacist Internal Medicine 05/05/24 02/03/25 Ron Preciado MD 5 [place] [address] Pulmonary Disease 05/17/24 Felipe Alanis MD 11 [facility] [address] [place], [place] Cardiology 01/11/25 Rosemary Moses NP [address] [place], [place] Urology 01/11/25 EllsworthMay 11 [facility] [address] [place], [place] Gastroenterology 01/11/25
--- OUTSIDE RECORDS SUMMARY | 2025-02-03 17:45 | XMS_ITS | Encounter Summary ---
Author Organization [employer] Address [address] [facility] 7t [place] [address] Care Team Providers Care Reservationist Name Role Phone Alee Sariah PAGE Primary Care Provider [phone] Yuri Pierre PharmD Unavailable [phone] Ron Preciado MD Unavailable [phone] Felipe Alanis MD Unavailable Rosemary Moses NP Unavailable JodeeMay Unavailable Encounter Details Date Type Department Care Team (Latest Contact Info) Description 02/03/2025 Travel Social History Tobacco Use Types Packs/Day [...] Info) Description 04/04/2025 10:00 AM EST Telemedicine [facility] MED & PEDS [address] [place] [address] Azeb Hall RN [address] [place] [address] 05/10/2025 1:00 PM EDT Office Visit [facility] MEDICINE [address] [place] [address] Sariah Vickers ANP [address] [place] [address] documented as of this encounter Goals Goal Patient Goal Type Associated Problems Recent Progress Patient-Stated? Author Blood Pressure < 140/90 Blood Pressure 124/80(2024 11:12 AM EST) No Aida Corona, Dileep Record Your Blood Sugar As Directed General No Aida Corona PharmD Hemoglobin A1c < 7 Result Component 6.6( 12:59 PM EST) No Aida Corona, PharmBear Help patients manage their type 2 diabetes Care Plan Help patients manage their type 2 diabetes No Azeb Hall, MARTIN Weekly blood pressure task Care Plan Weekly [...] chronic kidney disease No Yuri Pierre PharmD documented as of this encounter Visit [...] 02/03/2025 Patient has chronic kidney disease 02/03/2025 Assessment Noted Time PHQ-9 Depression Total Score: 14 025 1:03 PM EST documented as of this encounter Care Teams Reservationist Relationship Specialty Start Date End Date Sariah Vickers ANP [address] [place] [address] PCP - General Family Medicine 09/23/19 Yuri Pierre, MikeD [address] [place] [address] Pharmacist Internal Medicine 05/05/24 02/03/25 Ron Preciado MD 5 [place] [address] Pulmonary Disease 05/17/24 Felipe Alanis MD 11 [facility] 3rd [place] [address] Cardiology 01/11/25 Rosemary Moses NP [address] [place] [address] Urology 01/11/25 JodeeMay 11 [facility] 3rd [place] [address] Gastroenterology 01/11/25 documented as of this encounter
--- OUTSIDE RECORDS SUMMARY | 2025-02-03 17:45 | XMS_ITS | Encounter Summary ---
Author Organization [employer] Address [address] [facility] 7t [place] [address] Care Team Providers Care Financial Analysis Advisor Name Role Phone Sariah Vickers Primary Care Provider Yuri Pierre PharmD Unavailable Basilio Hall MD Unavailable Ron Preciado MD Unavailable [phone] Felipe Alanis MD Unavailable [phone] Rosemary Moses NP Unavailable May Unavailable Reason for Visit * Reason Onset Date Comments Med Refill 03/04/2023 Encounter Details Date Type Department Care Team (Late st Contact Info) Description 03/04/2023 Telephone [facility] MEDICINE [address] [place], [place] [phone] Sariah Vickers ANP [address] [place] [address] Med Refill Social History Tobacco Use Types [...] the past 12 months, has t he [employer], gas, oil or water company threatened to [...] sent to: [facility] [place], [place] - [address] [place] [address] documented in this encounter Plan of Treatment Upcoming Encounters Date Type Department Care Team ([facility] st Contact Info) Description 04/04/2025 10:00 AM EST Telemedicine [facility] CHC MED & PEDS [address] [place] [address] Azeb Hall, MARTIN [address] [place] [address] 05/10/2025 1:00 PM EDT Office Visit [facility] MEDICINE [address] [place] [address] Sariah Vickers ANP [address] [place] [address] documented as of this encounter Goals Goal Patient Goal Type Associated Problems Recent Progress Patient-Stated? Author Blood Pressure < 140/90 Blood Pressure 124/80(2024 11:12 AM EST) No Aida Ragland PharmBear Record Your Blood Sugar As Directed General No Aida Ragland PharmD Hemoglobin A1c < 7 Result Component 6.6( 12:59 PM EST) No Aida Ragalnd PharmD documented as of this encounter Visit Diagnoses Not on filedocumented in this encounter Care Teams Financial Analysis Advisor Relationship Specialty Start Date End Date Sariah Vickers ANP [address] [place] [address] PCP - General Family Medicine 09/23/19 Yuri Pierre, MikeD [address] [place] [address] Pharmacist Internal Medicine 05/05/24 02/03/25 Basilio Hall MD [address] [place] [address] Cardiology 05/17/24 01/10/25 Ron Preciado MD 5 [place] [address] Pulmonary Disease 05/17/24 Felipe Alanis MD [address] [place] [address] Cardiology 01/11/25 Rosemary Moses NP [address] [place] [address] Urology 01/11/[address] [place] [address] Gastroenterology 01/11/25 documented as of this encounter
--- OUTSIDE RECORDS SUMMARY | 2025-02-03 17:45 | XMS_ITS | Encounter Summary ---
Author Organization [email or web address] Address 75 [facility] 7t [place] [address] Care Team Providers Care Gum Scoring 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 Name Role Phone Sariah Vickers KAYLEE Primary Care Provider Yuri Pierre PharmD Unavailable [phone] Basilio Hall MD Unavailable Ron Preciado MD Unavailable [phone] Felipe Alanis MD Unavailable [phone] Rosemary Moses NP Unavailable May Unavailable Reason for Visit * Reason Comments Med Refill Encounter Details Date Type Department Care Team (Late st Contact Info) Description 10/04/2024 Refill [facility] CHC MED & PEDS [address] [place] [address] Zakia Uriostegui, SPINNER HAND [address] [place] [address] Type 2 diabetes mellitus with hyperglycemia (CMS/HCC) [...] [facility] CHC MED & PEDS [address] [place] [address] Azeb Hall, MARTIN [address] [place] [address] 05/10/2025 1:00 PM EDT Office Visit [facility] MEDICINE [address] [place] [address] Sariah Vickers ANP [address] [place] [address] documented as of this encounter Goals Goal [...] documented as of this encounter Care Teams Gum Scoring 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 Relationship Specialty Start Date End Date Sariah Vickers ANP [address] [place] [address] PCP - General Family Medicine 09/23/19 Yuri Pierre, MikeD [address] [place] [address] Pharmacist Internal Medicine 05/05/24 02/03/25 Basilio Hall MD [address] [place] [address] Cardiology 05/17/24 01/10/25 Ron Preciado MD [address] [place] [address] Pulmonary Disease 05/17/24 Felipe Alanis MD 11 [facility] 3rd [place] [address] Cardiology 01/11/25 Rosemary Moses NP [address] [place] [address] Urology 01/11/25 Umm Ellsworth [address] [address] Gastroenterology 01/11/25 documented as of this encounter
--- OUTSIDE RECORDS SUMMARY | 2025-02-03 17:45 | XMS_ITS | Encounter Summary ---
Author Organization [employer] Address 75 [facility] 7t [place] [address] Care Team Providers Care Staff Counsel Name Role Phone Anthony Ruiz Primary Care Provider Yuri Pierre PharmD Unavailable [phone] Basilio Hall MD Unavailable Ron Preciado MD Unavailable [phone] Felipe Alanis MD Unavailable Rosemary Moses NP Unavailable May Unavailable Encounter Details Date Type Department Care Team (Late st Contact Info) Description 09/28/2024 Orders Only [facility] MEDICINE [address] [place], [place] [phone] Anthony Ruiz ANP [address] [place], [place] [phone] Social History Tobacco Use Types Packs/Day Years [...] the past 12 months, has t he [employer], gas, oil or water [employer] threatened to shut off services in your [...] [facility] SYSTEM CHC MED & PEDS [address] [place] [address] Azeb Hall, RN [address] [place] [address] 05/10/2025 1:00 PM EDT Office Visit [facility] MEDICINE [address] [place] [address] Anthony Ruiz ANP [address] [place] [address] documented as of this encounter Goals Goal Patient Goal Type Associated Problems Recent Progress Patient-Stated? Author Blood Pressure < 140/90 Blood Pressure 124/80(2024 11:12 AM EST) No Aida Ragland, PharmBear Record Your Blood Sugar As Directed General No Aida Ragland, PharmD Hemoglobin A1c < 7 Result Component 6.6( 12:59 PM EST) No Mylenesd ciaraAida PharmD documented as of this encounter Procedures Procedure Name Priority Date/Time Associated Diagnosis Comments LDCT LUNG SCREENING Routine 10/09/2024 1 :18 PM EDT documented in this encounter Results * CT Lung Screening Low dose (10/09/2024 1:18 PM EDT) Anatomical Region Laterality Modality Lung Computed Tomogra phy 10/09/2024 1:18 PM EDT Narrative 10/09/2024 1:20 PM EDT [place] [address] [address] Scan Report Signed Patient: Nuvia Fay MR #: [id number] : 1960 Acct:[id number] Age/Sex: 64 / F ADM Date: 10/08/24 Loc: HO.CT Attending Dr: Ron Preciado MD Ordering Physician: Ron Preciado MD Date of Service: 10/08/24 Procedure(s): CT lung screening Accession Number(s): [id number] cc: Ron Preciado MD; ANTHONY RUIZ NP Report Number: [id number]: Total DLP = 64.00 mGy-cm CLINICAL HISTORY: [...] 10/09/24 1319 DD/ 1318 TD/TT: 10/09/24 1318 Merchandising Lead: Procedure Note Donotuseinterpreter, Image - 10/09/[address] [place] [address] [address] Scan Report Signed Patient: Nuvia Fay EMR #: [id number] : 1960cct:[id number] Age/Sex: 64 / FADM Date: 10/08/24 Loc: HO.CT Attending Dr: Ron Preciado MD Ordering Physician: Ron Preciado MD Date of Service: 10/08/24 Procedure(s): CT lung screening Accession Number(s): [id number] cc: Ron Preciado MD; ANTHONY RUIZ NP Report Number: [id number]: Total DLP = 64.00 mGy-cm CLINICAL HISTORY: [...] 10/09/24 1319 DD/ 1318 TD/TT: 10/09/24 1318 Merchandising Lead: [facility] External Provider IMG CT PROCEDURES Edited Result - Final documented in this encounter Visit Diagnoses Not on filedocumented in this encounter Additional Health Concerns Assessment Noted Time PHQ-9 Depression Total Score: 12 09/30/ 024 2:58 PM EDT documented as of this encounter Care Teams Staff Counsel Relationship Specialty Start Date End Date Anthony Ruiz ANP [address] [place] [address] PCP - General Family Medicine 09/23/19 Yuri Pierre, MikeD [address] [place] [address] Pharmacist Internal Medicine 05/05/24 02/03/25 Basilio Hall MD [address] [place] [address] Cardiology 05/17/24 01/10/25 Ron Preciado MD 5 [place] [address] Pulmonary Disease 05/17/24 Felipe Alanis MD 11 [facility] 3rd [place] [address] Cardiology 01/11/25 Rosemary Moses NP [address] [facility] [address] [place] [address] Urology 01/11/[address] [facility] 3rd [place] [address] Gastroenterology 01/11/25 documented as of this encounter
--- OUTSIDE RECORDS SUMMARY | 2025-02-03 17:45 | XMS_ITS | Continuity of Care Document ---
Author Organization [facility] Address [address] [place] [id number] Care Team Providers Care Brand Sales Consultant Name Role Phone HIM CCA OTHER Unavailable Primary Care Provider Assessment Encounter Date Assessment Date Assessment LastModified by Organization Details LastModified Time 01/28/2025 01/28/2025 I provided real -time medical direction via phone for this encounter, and was available for additional phone based assistance as needed. I have reviewed and agree with the Assessment and Plan as documented by the Operator Control Room. We discussed the diagnostic uncertainty of home visits and the risk associated with this. In this case the patient and I felt this to be an acceptable and reasonable amount of risk given the benefit of avoiding an ED visit. The patient given the opportunity to ask questions. Advised to f/u with pcp Friday/ call us for another visit if she needs/ if develops significant CP/severe SOB/turning blue/uncontroll ed n/v/d / AMS/ syncope/ hi fever to call 911- she verbalized understanding of instructions via the language line middle school science teacher [email or web address] Not available 01/28/2025 16:23:28 Plan of Treatment Reminders Order Date Submit Date Provider Last Modified By Organization Details Last Modified Time Details Appointments None recorded. Lab rapid SARS CoV 2 Ag, QL IA, respiratory specimen 2024 025 [facility], [address] [place] [address], [id number] 21:41:53 rapid flu (A+B) 2024 025 [facility], [address] [place] [address], [id number] 21:41:53 Referral None recorded. Procedures None recorded. Surgeries None recorded. Imaging None recorded. Medication Orders Saline Mist 0.65 % nasal spray aerosol 2024 025 [facility], [address] [place], [place], [id number], 16:28:02 guaifenesin ER 1,200 mg tablet, extended release 12 hr 2024 025 [facility], [address] [place], [place], [id number], 13:42:17 prednisone 20 mg tablet 2024 025 [facility], [address], [place], [id number], 16:53:26 Patient TargetsNo targets recorded. Patient InstructionsNo instructions recorded. Reason for Referral None Reported. Results Created Date Observation Date Name Description Value Unit Range Abnormal Flag Note LastModifiedBy Organization Detail LastModifiedTime Result Notes None recorded. Medical Equipment None Reported. Allergies Allergen ID Allergen Name Allergen Category Reaction Reaction Severity Criticality Documentation Date Start Date Code Code System Note Provider Name and Address Organization Details Recorded Time 11225 aspirin medicatio n Not available Not available Not available 05/29/2024 1191 RxNorm Not Available [facility] - production 13:30:18 57771 naproxen medicatio n Not available Not available Not available 05/29/2024 7258 RxNorm Not Available [facility] - production 13:30:18 30862 vancomyci n medicatio n rash moderate high 01/28/20252024 82366 RxNorm Not Available [facility] - External Data Service - prod 16:07:32 10046 azithromy beverly medicatio n Not available Not available Not available 01/28/20252024 02390 RxNorm Not Available [facility] [employer] External Data Service - prod 16:07:32 33435 naproxen medicatio n Not available Not available Not available 01/28/20252024 7258 RxNorm Qing Hughes MD [address] [place] [address],[address], [place], [place], [address] [place] [address] 0, [employer] 16:08:46 92929 simvastat in medicatio n Not available Not available Not available 01/28/20252024 88859 RxNorm Not Available [facility] - External Data Service - prod 16:07:32 66280 onion extract food,medi cation Not available Not available low 01/28/20252024 48849 69 RxNorm Not Available [facility] - External Data Service - prod 16:07:32 51320 aluminum aspirin Not available Not available Not available Not available 01/28/20252009 611 RxNorm Other react ion(s ): face swell ed unrec ogniz ed react ion (text : Unkno wn, code: [id number]) (from exter nal sourc e) Qing Hughes MD [address] [place] [address],[address], [place], [place], [address] [place] [address] 0, [employer] 16:08:38 94252 cortisone medicatio n Not available Not available Not available 01/28/20252019 2878 RxNorm put is unsur e Qing Hughes MD [address] [place] [address],[address], [place], [address] [place] [address] 0, [employer] 16:10:56 51945 doxycycli ne Not available Not available Not available Not available 01/28/20252021 3640 RxNorm unrec ogniz ed react ion (text : Unkno wn, code: [id number]) (from exter nal sourc e) Not Available [facility] - External Data Service - prod 16:07:47 Medications Name Sig Start Date Stop Date [...] Not Available Not Available No t Available Saline Mist 0.65 % nasal spray aerosol Take 2 sprays every 3-4 hours by nasal route as needed, for nasal congestion. 2024 active Not Available Not Available Not Avai lable cetirizine 10 mg tablet TAKE 1 TABLET [...] No t Available prednisone 20 mg tablet Take 2 tablets every day by oral route with meal(s) for 4 days. 2024 active Not Available Not Available Not Avai lable gabapentin 400 mg capsule TAKE 1 CAPSULE [...] Available Not Available Not Available guaifenesin ER 1,200 mg tablet, extended release 12 hr Take 1 tablet every 12 hours by oral route as needed, for cough/conge stion. 2024 active Not Available Not Available Not Avai lable diclofenac 1 % topical gel APPLY 2 GRAMS TOPICALLY TO AFFECTED AREA(S) ONCE DAILY NEEDED FOR PAIN active Not Available Not Available No t Available [facility] 10 billion [...] Available No t Available FreeStyle Jalil 2 [place] USE DIRECTED TO TEST BLOOD SUGAR EVERY [...] Available No t Available FreeStyle Jalil 3 [place] USE DIRECTED TO TEST BLOOD SUGAR active Not Available Not Available No t Available FreeStyle Jalil 3 Plus Sensor device USE DIRECTED TO TEST BLOOD SUGAR CHANGE EVERY 15 DAYS active Not Available Not Available No t Available Lorna Pen Needle 32 gauge x / USE DIRECTED THREE TIMES DAILY active Not Available Not Available No t Available Vitals Date Recorded Heart rate Oxygen saturation Body weight Respiratory rate Body temperature Body height Systolic And Diastolic Provider Name and Address Organization Details Last Updated DateTime 5 70 /min 96 % 56632.7 28 g 16 /min 98.3 [degF] 157.48 cm 130/87 mm[Hg] Not Available [facility] - production 5 16:02:16 Social History None recorded. Functional Status None recorded. Mental Status None recorded. Family History Nothing Reported. Medical History No medical history recorded. Gynecological HistoryNo gynecological history recorded. Obstetrics History GPAL:G 0 P 0 0 0 0 Past Encounters Encounter ID Performer Location Encounter Start Date Encounter Closed Date Diagnosis/Indication Diagnosis SNOMED-CT Code Diagnosis ICD10 Code Diagnosis IMO Codes Diagnosis Note [id number] Qing Hughes MD [facility] [address] [phone] 01/28/2025 16:02:13 01/31/2025 13:04:30 Upper respiratory tract finding 419718520 R09.89 [id number] rapid covid/ flu negativepa tient afebrile lungs cta/ no sinus tenderness - abx not indicated- just finished bactrim/le vaquin- expl too many abx could lead to c diffuse fluticason e 1 spray each nares 2 x per day for 1 week/advis ed warm compresses to her sinuses, continue gargling with warm salt water/will add saline nasal spray to reduce nasal congestion as well and I offered guaifenesi n ER which she is aware may not be covered, to further reduce congestion . states family can cloth picker rx today/pat has had prednisone before without problem she reports, despite listed history of cortisone allergy, blood sugars are well-contr olled -will add short course of prednisone to help relieve coughing and any shortness of breath caused by bronchospa sm. Made patient aware she will have a transient rise in her blood sugar on prednisone . Health Concerns Section Related Observation LastModified by Organization Detai ls LastModified Time None Recorded Concern Status LastModified by Organization Details LastModified Time None Recorded Payers Encounter Date Sequence Insurance Name Policy Number Policy Laws Covered Member ID Laws Member ID Guarantor Name 01/28/2025 1 [facility] - DOS ON OR AFTER 2022 - DUAL ELIGIBLE - RESIDENTIAL OPTIONS AND ONE CARE (MEDICARE REPLACEMENT/ADV ANTAGE - HMO) Nuvia Da Silva [id number] Nuviadanish Da Silva Notes Date Note Type Note Provider Name and Address Organization Details Recorded Time 01/28/2025 text/html ROS as noted in the HPI CRC Nurse Triage Notes (Swapna Russo): Reason For Request: Pt reporting wheezing>unsure if she is experiencing an asthma episode or onset of bronchitis>yellow phlegmAllergies to meds: notes she has 1 allergy to an asthma medicationPMH: diabetic, suffers from potassium Patient Reports: Cough, fever greater than 2 days ; History of asthma, increased use of inhaler; COPD; Sputum increase ; CoughDenies: Increased work of breathing/labored with or without fever Unable to speak in full sentences without distress Discoloration of skin -cyanosis Needs to sleep sitting up, can t catch breath Shortness of breath in setting of confusion Lower extremity swelling COVID Exposure Shortness of breath with exertion Pain with inspiration Chief Complaints: Common ColdPMH: Diabetes Mellitus Type 2, Hyperlipidemia, Hypertension, Kidney Stones, Hysterectomy, Hypothyroidism, AsthmaPMH Reviewed at 01/28/2025 - 11:50 (ET)Allergies Reviewed at 01/28/2025 - 11:50 (ET)Comments: 64 y.o female complains of Common Cold, wheezing, stuffy nose.Member has the FLU ? and completed her meds but still having yellow phlegm, mild SOB using nebulizer with help. Was the hospital recently.Also reporting right side of leg infection which she finished her ABX.PMH: neuropathy in feet, No blood thinner use.Member is giving lots of info but unsure what order things occurred since member is all over the place with info and Language barrier as well.Used language line for interpretation.I provided information on the mobile health provider response time and advised the patient and/or caregiver to monitor reported signs and symptoms. I discussed the warning signs of when to seek emergency care.aller gy to some ABX but unsure which oneasked again with hoof trimmer but not sure again Operator Control Room Organization Information for Lucas Oliveros Legal Name: [employer]. A ddress: [address] [facility], [place] [address], USMedical Director: Benjamín Arechiga [facility] No.: [id number] Operator Control Room POC Test Results from Lucas Oliveros Rapid influenza antigen (16:00:23)Flu: - Rapid COVID antigen (16:00:24)COVID: - ..................... ..................... ..................... ..................... ..................... ..................... ............... Operator Control Room Note From Lucas Oliveros: [facility] makes pt contact a 64 yo F CC of wheezing. [facility] uses language pathologist, obtains vital signs. PT tests negative for covid and flu. PT explains she wanted an assessment of her asthma s/s. When she goes outside she experiences pain in the lungs but inside she feels okay. PT explains a headache and a runny nose. Mucus is yellow in color. PT just finished antibiotics for MRSA. PT explains chills and feeling hot . Intermittent chest pain until she uses a nebulizer then it goes away. PT has been using salt water gurgles to relieve throat symptoms. PT lungs are clear. No tenderness to forehead or along the cheeks. No fever is present. PT using her nebulizer every 4 to 6 hours and also has an MDI inhaler. PT is a diabetic but sugars have been WNL. Multiple allergies to antibiotics confirmed and listed on insted kelby. [facility] contacts [facility] and explains above mentioned. [facility] sends prescription of mucinex, saline spray, and prednisone to be taken as prescribed. PT also encouraged to use her fluticasone and continue her nebulizer treatments. Red flags discussed such as worsening chest pain, AMS, new onset fever, n/v/d, uncontrolled fever she should then go to an emergency room or use a service such as 911. PT also instructed to make an appointment with her PCP. PT understands. [facility] clear. [facility] Lab Orders: rapid SARS CoV 2 Ag, QL IA, respiratory specimen: Performed rapid flu (A+B): Performed ..................... ..................... ..................... ..................... ..................... ..................... ............... [facility] Consulted: Qing Hughes ..................... ..................... ..................... ..................... ..................... ..................... ............... Disposition: Fulfilled SEGMD: Patient took her last dose of levofloxacin today and finished Bactrim on 01/26 for MRSA infection of right hip. 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 She has ondansetron, omeprazole and metoclopramide already at home. She denies diarrhea. Patient has fluticasone but is not using it she has no history of CKD her last creatinine on 12/08/2024 was 0.9. On patient's CGM blood sugar is 99 during the visit Qing Hughes MD [address] [facility],[address], [place], [phone], [employer] 01/29/2025 22:54:27 OBGyn Episode No OBEpisode recorded.
--- OUTSIDE RECORDS SUMMARY | 2025-02-03 17:45 | XMS_ITS | Encounter Summary ---
Author Organization [employer] Address [address] [facility] [address]t [place] [address] Care Team Providers Care Campaign Advisor Name Role Phone Sariah Vickers KAYLEE Primary Care Provider Yuri Pierre PharmD Unavailable Basilio Hall MD Unavailable Ron Preciado MD Unavailable [phone] Felipe Alanis MD Unavailable [phone] Rosemary Moses NP Unavailable May Unavailable Reason for Visit * Reason Comments Med Refill Encounter Details Date Type Department Care Team (Late st Contact Info) Description 11/11/2024 Refill [facility] [address] [place] [address] Yogesh Gomez, JOHN [address] [place] [address] Social History Tobacco Use Types Packs/Day Years [...] Info) Description 04/04/2025 10:00 AM EST Telemedicine [facility] [address] [place] [address] Azeb Hall, MARTIN [address] [place] [address] 05/10/2025 1:00 PM EDT Office Visit [facility] [address] [place] [address] Sariah Vickers ANP [address] [place] [address] documented as of this encounter Goals Goal [...] documented as of this encounter Care Teams Campaign Advisor Relationship Specialty Start Date End Date Sariah Vickers ANP [address] [place] [address] PCP - General Family Medicine 09/23/19 Yuri Pierre, MikeD [address] [place] [address] Pharmacist Internal Medicine 05/05/24 02/03/25 Basilio Hall MD [address] [place] [address] Cardiology 05/17/24 01/10/25 Ron Preciado MD [address] [place] [address] Pulmonary Disease 05/17/24 Felipe Alanis MD [address] [facility] [address] [place] [address] Cardiology 01/11/25 Rosemary Moses NP [address] [place] [address] Urology 01/11/25 Umm Ellsworth [address] [facility] [address] [place] [address] Gastroenterology 01/11/25 documented as of this encounter
--- OUTSIDE RECORDS SUMMARY | 2025-02-03 17:45 | XMS_ITS | Encounter Summary ---
Author Organization [employer] Address [address] [facility] 7t [place] [address] Care Team Providers Care Marketing Director Assisted Living Name Role Phone Sariah Vickers KAYLEE Primary Care Provider Yuri Pierre PharmD Unavailable [phone] Basilio Hall MD Unavailable Ron Preciado MD Unavailable [phone] Felipe Alanis MD Unavailable [phone] Rosemary Moses NP Unavailable May Unavailable Reason for Visit * Reason Comments Med Refill Encounter Details Date Type Department Care Team (Late st Contact Info) Description 03/04/2023 Refill [facility] [address] [place] [phone] Brittney Nava MD [address] [place], [place] [phone] Social History Tobacco Use Types Packs/Day Years [...] the past 12 months, has t he [employer], gas, oil or water [employer] threatened to shut off services in your [...] Info) Description 04/04/2025 10:00 AM EST Telemedicine [facility] [address] [place] [address] Azeb Hall, MARTIN [address] [place] [address] 05/10/2025 1:00 PM EDT Office Visit [facility] [address] [place] [address] Sariah Vickers, ANP [address] [place] [address] documented as of this encounter Goals Goal Patient Goal Type Associated Problems Recent Progress Patient-Stated? Author Blood Pressure < 140/90 Blood Pressure 124/80(2024 11:12 AM EST) No Aida Ragland, PharmD Record Your Blood Sugar As Directed General No Veronica Raglandsa, PharmD Hemoglobin A1c < 7 Result Component 6.6( 12:59 PM EST) No Aida Ragland, PharmD documented as of this encounter Visit Diagnoses Not on filedocumented in this encounter Care Teams Marketing Director Assisted Living Relationship Specialty Start Date End Date Sariah Vickers ANP [address] [place] [address] PCP - General Family Medicine 09/23/19 Yuri Pierre, Dlieep [address] [place] [address] Pharmacist Internal Medicine 05/05/24 02/03/25 Basilio Hall MD [address] [place] [address] Cardiology 05/17/24 01/10/25 Ron Preciado MD [address] [place] [address] Pulmonary Disease 05/17/24 Felipe Alanis MD [address]rd [place] [address] Cardiology 01/11/25 Rosemary Moses NP [address] [place] [address] Urology 01/11/25 Jodee Umm [address]rd [place] [address] Gastroenterology 01/11/25 documented as of this encounter
--- OUTSIDE RECORDS SUMMARY | 2025-02-03 17:45 | XMS_ITS | Encounter Summary ---
Author Organization [employer] Address [address] [facility] 7t [place] [address] Care Team Providers Care Childcare Attendant Name Role Phone Sariah Vickers Primary Care Provider [phone] Yuri Pierre PharmD Unavailable Basilio Hall MD Unavailable [phone] Ron Preciado MD Unavailable [phone] Felipe Alanis MD Unavailable Rosemary Moses NP Unavailable May Unavailable Reason for Visit * Reason Onset Date Comments Nurse Triage 12/24/2022 Encounter Details Date Type Department Care Team (Late st Contact Info) Description 12/24/2022 Telephone [facility] [address] [place] [address] Sariah Vickers ANP [address] [place] [address] Nurse Triage Social History Tobacco Use Types [...] the past 12 months, has t he [employer], gas, oil or water [employer] threatened to shut off services in your [...] - 12/24/2022 1:11 PM EST Called pt.via zerved buckle and button maker [id number] Benjamin. Pt. States that she wants to [...] regimen and possible referral to a new Youth Development Professional due to pt. Not having jeremie in [...] accepted this outcome Please contact pt at [phone] documented in this encounter Plan of Treatment Upcoming Encounters Date Type Department Care Team (Late st Contact Info) Description 04/04/2025 10:00 AM EST Telemedicine [facility] [address] [place] [address] Azeb Hall, RN [address] [place] [address] 05/10/2025 1:00 PM EDT Office Visit [facility] [address] [place] [address] Sariah Vickers ANP [address] [place] [address] documented as of this encounter Goals Goal Patient Goal Type Associated Problems Recent Progress Patient-Stated? Author Blood Pressure < 140/90 Blood Pressure 124/80(2024 11:12 AM EST) No PhanisAida Cheng, PharmD Record Your Blood Sugar As Directed General No Phanis-Veronica Medinasa, PharmD Hemoglobin A1c < 7 Result Component 6.6( 12:59 PM EST) No PhanisAida Cheng, PharmD documented as of this encounter Visit Diagnoses Not on filedocumented in this encounter Care Teams Childcare Attendant Relationship Specialty Start Date End Date Sariah Vickers ANP [address] [place] [address] PCP - General Family Medicine 09/23/19 Yuri Pierre, MikeD [address] [place] [address] Pharmacist Internal Medicine 05/05/24 02/03/25 Basilio Hall MD [address] [place] [address] Cardiology 05/17/24 01/10/25 Ron Preciado MD [address] [place] [address] Pulmonary Disease 05/17/24 Felipe Alanis MD [address]rd [place] [address] Cardiology 01/11/25 Rosemary Moses NP [address] [place] [address] Urology 01/11/[address]rd [place] [address] Gastroenterology 01/11/25 documented as of this encounter
--- OUTSIDE RECORDS SUMMARY | 2025-02-03 17:45 | XMS_ITS | Encounter Summary ---
Author Organization [employer] Address [address] [facility] 7t [place] [address] Care Team Providers Care Center Human Resources Manager Name Role Phone Sariah Vickers Primary Care Provider Yuri Pierre PharmD Unavailable [phone] Basilio Hall MD Unavailable Ron Preciado MD Unavailable [phone] Felipe Alanis MD Unavailable Rosemary Moses NP Unavailable May Unavailable Reason for Visit * Reason Comments Med Refill Encounter Details Date Type Department Care Team (Late st Contact Info) Description 03/07/2023 Refill [facility] [address] [place], [place] [phone] Sariah Vickers ANP [address] [place] [address] Vertigo Social History Tobacco Use Types Packs/Day [...] the past 12 months, has t he [employer], gas, oil or water company threatened to [...] Info) Description 04/04/2025 10:00 AM EST Telemedicine [facility] [address] [place] [address] Azeb Hall, MARTIN [address] [place] [address] 05/10/2025 1:00 PM EDT Office Visit [facility] [address] [place] [address] Sariah Vickers ANP [address] [place] [address] documented as of this encounter Goals Goal [...] giddiness documented in this encounter Care Teams Center Human Resources Manager Relationship Specialty Start Date End Date Sariah Vickers ANP [address] [place] [address] PCP - General Family Medicine 09/23/19 Yuri Pierre, Dileep [address] [place] [address] Pharmacist Internal Medicine 05/05/24 02/03/25 Basilio Hall MD [address] [place] [address] Cardiology 05/17/24 01/10/25 Ron Preciado MD [address] [place] [address] Pulmonary Disease 05/17/24 Felipe Alanis MD [address]rd [place] [address] Cardiology 01/11/25 Rosemary Moses NP [address] [place] [address] Urology 01/11/25 Jodee Umm [address]rd [place] [address] Gastroenterology 01/11/25 documented as of this encounter
--- OUTSIDE RECORDS SUMMARY | 2025-02-03 17:45 | XMS_ITS | Encounter Summary ---
Author Organization [facility] Address [address] [place] [address] Encounters * CPT with Medical instED at [employer] on 2025-01-28 { reasonForRequest : Pt reporting wheezing>unsure if she is experiencing an asthma episode or onset of bronchitis>yellow phlegm\nAllergies to meds: notes she has 1 allergy to an asthma medication\nPMH: diabetic, suffers from potassium , patientReports : Cough, fever greater than 2 days ; History of asthma, increased use of inhaler; COPD; Sputum increase ; Cough , denies :[&quo t;Increased work of breathing/labored with or without fever , Unable to speak in fullsentences without distress , Discoloration of skin -cyanosis , Needs to sleep sitting up, can t catch breath , Shortness of breath in setting of confusion , Lower extremity swelling , COVID Exposure , Shortness of breath with exertion", Pain with inspiration ], chiefComplaints : Common Cold , pmh": Diabetes Mellitus Type 2, Hyperlipidemia, Hypertension, Kidney Stones, Hysterectomy, Hypothyroidism, Asthma , allergies : Aspirin, Ec-Naproxen , otherAllergies : Antibiotic unsure which one , painAssessment : , visitOutcome : , additionalComments : 64 y.o female complains of Common Cold, wheezing, stuffy nose.\nMember has the FLU ? and completed her meds but still having yellow phlegm, mild SOB using nebulizer with help. Was the hospital recently. \nAlso reporting right side of leg infection which she finished her ABX. \nPMH: neuropathy in feet, No blood thinner use. \nMember isgiving lots of info but unsure what order things occurred since member is all over the place with info and Language barrier as well. \nUsed language line for interpretation. \nI provided information on the mobile health provider response time and advised the patient and/or caregiver to monitor reported signs and symptoms. I discussed the warning signs of when to seek emergency care.\nallergy to some ABX but unsure which oneasked again with lactation coordinator but not sure again } [facility] makes pt contact a 64 yo F CC of wheezing. [facility] uses english as a second language teacher, obtains vital signs. PT tests negative for [...] has been using salt water gurgles to relievethroat symptoms. PT lungs are clear. No tenderness to forehead or along the cheeks. No fever is present. PT using her nebulizer every 4 to 6 hours and also has an MDI inhaler. PT is a diabetic but sugars have been WNL. Multiple allergies to antibiotics confirmed and listed on [employer] kelby. [facility] contacts [facility] and explains above mentioned. [facility] sends prescription of mucinex, saline spray, and prednisoneto be taken as prescribed. PT also encouraged to use her fluticasone and continue her nebulizer treatments. Red flags discussed such as worsening chest pain, AMS, new onset fever, n/v/d, uncontrolledfever she should then go to an emergency room or use a service such as 911. PT also instructed to make an appointment with her PCP. PT understands. [facility] clear. IV_(FLUIDS_AND/OR_MEDICATION), MEDICATION_IM, POC_BLOODWORK Written by [facility] on 2025-01-28
--- OUTSIDE RECORDS SUMMARY | 2025-02-03 17:45 | XMS_ITS | Encounter Summary ---
Author Organization [employer] Address [address] 7t [place] [address] Care Team Providers Care Summons Server Name Role Phone Sariah Vickers Primary Care Provider Yuri Pierre PharmD Unavailable Basilio Hall MD Unavailable Ron Preciado MD Unavailable [phone] Felipe Alanis MD Unavailable Rosemary Moses NP Unavailable May Unavailable Reason for Visit * Reason Comments Med Refill Encounter Details Date Type Department Care Team (Late st Contact Info) Description 12/17/2024 Refill [facility] [address] [place] [address] Sariah Vickers ANP 230 [place] [address] Chronic SI joint pain Social History Tobacco [...] [facility] st Contact Info) Description 04/04/2025 10:00 AM EST Telemedicine [facility] 505 [place] [address] Azeb Hall, RN 505 [place] [address] 05/10/2025 1:00 PM EDT Office Visit [facility] 230 [place] [address] Sariah Vickers, ANP [address] [place] [address] documented as of this encounter Goals Goal [...] documented as of this encounter Care Teams Summons Server Relationship Specialty Start Date End Date Sariah Vickers ANP [address] [place] [address] PCP - General Family Medicine 09/23/19 Yuri Pierre, MikeD [address] [place] [address] Pharmacist Internal Medicine 05/05/24 02/03/25 Basilio Hall MD [address] [place] [address] Cardiology 05/17/24 01/10/25 Ron Preciado MD 5 [place] [address] Pulmonary Disease 05/17/24 Felipe Alanis MD [address] [facility] [address] [place] [address] Cardiology 01/11/25 Rosemary Moses NP [address] [place] [address] Urology 01/11/25 Jodee May [address] [facility] [address] [place] [address] Gastroenterology 01/11/25 documented as of this encounter
--- OUTSIDE RECORDS SUMMARY | 2025-02-03 17:46 | XMS_ITS | Encounter Summary ---
Author Organization [employer] Address [address] [facility] 7t [place] [address] Care Team Providers Care Residential Energy Auditor Name Role Phone Sariah Vickers Primary Care Provider Yuri Pierre PharmD Unavailable Basilio Hall MD Unavailable Ron Preciado MD Unavailable [phone] Felipe Alnais MD Unavailable Rosemary Moses NP Unavailable May Unavailable Reason for Visit * Reason Comments Med Refill Encounter Details Date Type Department Care Team (Late st Contact Info) Description 07/10/2023 Refill [facility] 230 [place] [address] Sariah Vickers ANP 230 [place] [address] Chronic SI joint pain Social History Tobacco [...] 04/04/2025 10:00 AM EST Telemedicine [facility] 505 [place] [address] Azeb Hall, RN 505 [place] [address] 05/10/2025 1:00 PM EDT Office Visit [facility] 230 [place] [address] Sariah Vickers ANP [address] [place] [address] documented as of this encounter Goals Goal [...] as of this encounter Care Teams Residential Energy Auditor Relationship Specialty Start Date End Date Sariah Vickers ANP [address] [place] [address] PCP - General Family Medicine 09/23/19 Yuri Pierre, PharmD 230 [place] [address] Pharmacist Internal Medicine 05/05/24 02/03/25 Basilio Hall MD [address] [place] [address] Cardiology 05/17/24 01/10/25 Ron Preciado MD 5 [place] [address] Pulmonary Disease 05/17/24 Felipe Alanis MD [address] 3rd [place] [address] Cardiology 01/11/25 Rosemary Moses NP [address] [place] [address] Urology 01/11/25May [address] [place] [address] Gastroenterology 01/11/25 documented as of this encounter
--- OUTSIDE RECORDS SUMMARY | 2025-02-03 17:46 | XMS_ITS | Encounter Summary ---
Author Organization [employer] Address [address] [facility] 7t [place] [address] Care Team Providers Care Labor Relations Analyst Name Role Phone Sariah Vickers Primary Care Provider Yuri Pierre PharmD Unavailable [phone] Basilio Hall MD Unavailable Ron Preciado MD Unavailable [phone] Felipe Alanis MD Unavailable Rosemary Moses NP Unavailable May Unavailable Reason for Visit * Reason Comments Med Refill Encounter Details Date Type Department Care Team (Late st Contact Info) Description 05/21/2023 Refill [facility] 230 [place] [address] Sariah Vickers ANP 230 [place] [address] Neck pain Social History Tobacco Use Types [...] the past 12 months, has t he [employer], gas, oil or water [email or web address] threatened to shut off services in your [...] Info) Description 04/04/2025 10:00 AM EST Telemedicine [facility] 505 [place] [address] Azeb Hall, MARTIN 505 [place] [address] 05/10/2025 1:00 PM EDT Office Visit [facility] 230 [place] [address] Sariah Vickers ANP 230 [place] [address] documented as of this encounter Goals Goal [...] Cervicalgia documented in this encounter Care Teams Labor Relations Analyst Relationship Specialty Start Date End Date Sariah Vickers ANP 230 [place] [address] PCP - General Family Medicine 09/23/19 Yuri Pierre, MikeD 230 [place] [address] Pharmacist Internal Medicine 05/05/24 02/03/25 Basilio Hall MD [address] [place] [address] Cardiology 05/17/24 01/10/25 Ron Preciado MD 5 [place] [address] Pulmonary Disease 05/17/24 Felipe Alanis MD [address] [facility] 3[address] [place] [address] Cardiology 01/11/25 Rosemary Moses NP [address] [place] [address] Urology 01/11/25 Jodee May [address] [facility] 3[address] [place] [address] Gastroenterology 01/11/25 documented as of this encounter
--- OUTSIDE RECORDS SUMMARY | 2025-02-03 17:46 | XMS_ITS | Encounter Summary ---
Author Organization [employer] Address [address] [facility] 7t [place] [address] Care Team Providers Care Precision Lens Centerer And Edger Name Role Phone Sariah Vickers Primary Care Provider [phone] Yuri Pierre PharmD Unavailable [phone] Basilio Hall MD Unavailable Ron Preciado MD Unavailable [phone] Felipe Alanis MD Unavailable Rosemary Moses NP Unavailable May Unavailable Reason for Visit * Reason Onset Date Comments Med Refill Durable Medical Equipment 07/15/2023 Foam M attress/Raised Toilet Seat Encounter Details Date Type Department Care Team (Late st Contact Info) Description 07/15/2023 Refill [facility] 230 [place], [place] [phone] Sariah Vickers ANP 230 [place] [address] Neck pain Social History Tobacco Use Types [...] request sent via email by [facility] Survey Workers Supervisor Arlin Baker. Please Advise. Good morning, [...] Care Team (Fish tidwell Contact Info) Description 04/04/2025 10:00 AM EST Telemedicine [facility] 505 [place] [address] Azeb Hall, RN 505 [place], [place] 05/10/2025 1:00 PM EDT Office Visit [facility] [address] [place] [address] Sariah Vickers ANP 230 [place] [address] documented as of this encounter Goals Goal [...] of this encounter Care Teams Precision Lens Centerer And Edger Relationship Specialty Start Date End Date Sariah Vickers ANP 230 [place] [address] PCP - General Family Medicine 09/23/19 Yuri Pierre, MikeD [address] [place] [address] Pharmacist Internal Medicine 05/05/24 02/03/25 Basilio Hall MD 596 [place] [address] Cardiology 05/17/24 01/10/25 Ron Preciado MD [address] [place] [address] [place] [address] Pulmonary Disease 05/17/24 Felipe Alanis MD [address]rd [place] [address] Cardiology 01/11/25 Rosemary Moses NP [address] [place] [address] Urology 01/11/[address] 3rd [place] [address] Gastroenterology 01/11/25 documented as of this encounter
--- OUTSIDE RECORDS SUMMARY | 2025-02-03 17:46 | XMS_ITS | Encounter Summary ---
Author Organization [employer] Address [address] [facility] 7t [place] [address] Care Team Providers Care Erp Project Manager Name Role Phone Sariah Vickers Primary Care Provider Yuri Pierre PharmD Unavailable Basilio Hall MD Unavailable Ron Preciado MD Unavailable [phone] Felipe Alanis MD Unavailable Rosemary Moses NP Unavailable May Unavailable Reason for Visit * Reason Comments Med Refill Encounter Details Date Type Department Care Team (Late st Contact Info) Description 06/30/2023 Refill [facility] 230 [place] [address] Sariah Vickers ANP 230 [place] [address] Neck pain Social History Tobacco Use Types [...] 04/04/2025 10:00 AM EST Telemedicine [facility] 505 [place] [address] Azeb Hall, MARTIN 505 [place] [address] 05/10/2025 1:00 PM EDT Office Visit [facility] 230 [place] [address] Sariah Vickers ANP 230 [place] [address] documented as of this encounter Goals Goal [...] documented as of this encounter Care Teams Erp Project Manager Relationship Specialty Start Date End Date Sariah Vickers ANP 230 [place] [address] PCP - General Family Medicine 09/23/19 Yuri Pierre, PharmD 230 [place] [address] Pharmacist Internal Medicine 05/05/24 02/03/25 Basilio Hall MD 596 [place] [address] Cardiology 05/17/24 01/10/25 Ron Preciado MD 5 [place] [address] Pulmonary Disease 05/17/24 Felipe Alanis MD [address] [place] [address] Cardiology 01/11/25 Rosemary Moses NP [address] [place] [address] Urology 01/11/[address] [place] [address] Gastroenterology 01/11/25 documented as of this encounter
--- OUTSIDE RECORDS SUMMARY | 2025-02-03 17:46 | XMS_ITS | Encounter Summary ---
Author Organization [employer] Address [address] [facility] 7t [place] [address] Care Team Providers Care Dry Cleaning Counter Clerk Name Role Phone Sariah Vickers Primary Care Provider Yuri Pierre PharmD Unavailable Basilio Hall MD Unavailable Ron Preciado MD Unavailable [phone] Felipe Alanis MD Unavailable Rosemary Moses NP Unavailable May Unavailable Reason for Visit * Reason Onset Date Comments Referral 05/17/2022 Encounter Details Date Type Department Care Team (Late st Contact Info) Description 05/17/2022 Telephone [facility] 230 [place], [place] [phone] Sariah Vickers ANP 230 [place] [address] Referral Social History Tobacco Use Types Packs/Day [...] guide to vertigo. Please contact pt at [phone] documented in this encounter Plan of Treatment Upcoming Encounters Date Type Department Care Team ([facility] st Contact Info) Description 04/04/2025 10:00 AM EST Telemedicine [facility] [address] [place] [address] Azeb Hall, RN 505 [place] [address] 05/10/2025 1:00 PM EDT Office Visit [facility] [address] [place] [address] Sariah Vickers ANP 230 [place] [address] documented as of this encounter Visit Diagnoses Not on filedocumented in this encounter Care Teams Dry Cleaning Counter Clerk Relationship Specialty Start Date End Date Sariah Vickers ANP [address] [place] [address] PCP - General Family Medicine 09/23/19 Yuri Pierre, MikeD [address] [place] [address] Pharmacist Internal Medicine 05/05/24 02/03/25 Basilio Hall MD [address] [place] [address] Cardiology 05/17/24 01/10/25 Ron Preciado MD [address] [place] [address] Pulmonary Disease 05/17/24 Felipe Alanis MD [address] 3rd [place] [address] Cardiology 01/11/25 Rosemary Moses NP [address] [place] [address] Urology 01/11/25EllsworthMay [address] 3rd [place] [address] Gastroenterology 01/11/25 documented as of this encounter
--- OUTSIDE RECORDS SUMMARY | 2025-02-03 17:46 | XMS_ITS | Encounter Summary ---
Author Organization [employer] Address [address] [facility] 7t [place] [address] Care Team Providers Care Cargo Checker Name Role Phone Sariah Vickers Primary Care Provider [phone] Yuri Pierre PharmD Unavailable [phone] Basilio Hall MD Unavailable Ron Preciado MD Unavailable [phone] Felipe Alanis MD Unavailable Rosemary Moses NP Unavailable May Unavailable Reason for Visit * Reason Comments Med Refill Encounter Details Date Type Department Care Team (Late st Contact Info) Description 05/09/2023 Refill [facility] 230 [place] [address] Sariah Vickers ANP 230 [place] [address] High cholesterol Social History Tobacco Use Types [...] the past 12 months, has t he [employer], gas, oil or water company threatened to [...] 04/04/2025 10:00 AM EST Telemedicine [facility] 505 [place] [address] Azeb Hall, MARTIN 505 [place] [address] 05/10/2025 1:00 PM EDT Office Visit [facility] [address] [place] [address] Sariah Vickers ANP 230 [place] [address] documented as of this encounter Goals Goal [...] hypercholesterolemia documented in this encounter Care Teams Cargo Checker Relationship Specialty Start Date End Date Sariah Vickers ANP 230 [place] [address] PCP - General Family Medicine 09/23/19 Yuri Pierre, Dileep 230 [place] [address] Pharmacist Internal Medicine 05/05/24 02/03/25 Basilio Hall MD [address] [place] [address] Cardiology 05/17/24 01/10/25 Ron Preciado MD 5 [place] [address] Pulmonary Disease 05/17/24 Felipe Alanis MD [address] [facility] 3rd [place] [address] Cardiology 01/11/25 Rosemary Moses NP [address] [place] [address] Urology 01/11/25 Jodee May 11 [facility] 3rd [place] [address] Gastroenterology 01/11/25 documented as of this encounter
--- OUTSIDE RECORDS SUMMARY | 2025-02-03 17:46 | XMS_ITS | Data Portability ---
Author Organization [employer] [facility], [facility] Address [address] [place] [address] Care Team Providers Care Media Assistant Name Role Phone HIM CCA OTHER Unavailable Primary Care Provider Assessment Encounter Date Assessment Date Assessment LastModified by Organization Details LastModified Time 09/23/2024 09/23/2024 Mrs. Da Silva presented for isolated episode of nausea and vomiting after taking augmentin on empty stomach. She is on augmentin and prednisone for asthma. Patient afebrile and well-appearing, no abdominal tenderness or distension per community travel money advisor exam, nausea has resolved. No chest pain [...] Assessment and Plan as documented by the Powerhouse Electrician Apprentice. We discussed the diagnostic uncertainty of home [...] of instruction [email or web address] Not available 09/23/2024 17:38:02 01/28/2025 01/28/2025 I provided real -time medical direction via phone for this encounter, and was available for additional phone based assistance as needed. I have reviewed and agree with the Assessment and Plan as documented by the Powerhouse Electrician Apprentice. We discussed the diagnostic uncertainty of home [...] she needs/ if develops significant CP/severe SOB/turning blue/uncontrolle d n/v/d / AMS/ syncope/ hi fever to call 911- she verbalized understanding of instructions via the language line barrel cooper [email or web address] Not available 01/28/2025 16:23:28 Plan of Treatment Reminders Order Date Submit Date Provider Last Modified By Organization Details Last Modified Time Details Appointments None recorded. Lab rapid SARS CoV 2 Ag, QL IA, respiratory specimen 2024 [facility], [address] [place] [address], [id number] 21:41:53 rapid flu (A+B) 2024 025 [facility], [address] [place] [address], [id number] 21:41:53 Referral None recorded. Procedures None recorded. Surgeries None recorded. Imaging None recorded. Medication Orders Saline Mist 0.65 % nasal spray aerosol 2024 [facility], [address] [place] [address], [id number], 16:28:02 guaifenesin ER 1,200 mg tablet, extended release 12 hr 2024 025 [facility], [address] [place] [address], [id number], 13:42:17 prednisone 20 mg tablet 2024 025 [facility], [address] [place] [address], [id number], 16:53:26 ondansetron 4 mg disintegrat ing tablet 2024 025 [facility], [address] [place] [address], [id number], 09:18:37 Patient TargetsNo targets recorded. Patient InstructionsNo [...] Name and Address Organization Details Recorded Time 16513 aspirin medicatio n Not available Not available Not available 05/29/2024 1191 RxNorm Not Available [employer] - production 13:30:18 90869 naproxen medicatio n Not available Not available Not available 05/29/2024 7258 RxNorm Not Available [facility] - production 13:30:18 86650 vancomyci n medicatio n rash moderate high 01/28/20252024 70583 RxNorm Not Available [employer] - External Data Service - prod 16:07:32 29663 azithromy beverly medicatio n Not available Not available Not available 01/28/20252024 38164 RxNorm Not Available [employer] - prod 16:07:32 40302 naproxen medicatio n Not available Not available Not available 01/28/20252024 7258 RxNorm Qing Hughes MD [address] [facility],[address], [place], [address], [facility] - [employer] 16:08:46 42700 simvastat in medicatio n Not available Not available Not available 01/28/20252024 58895 RxNorm Not Available [employer] - External Data Service - prod 16:07:32 47596 onion extract food,medi cation Not available Not available low 01/28/20252024 48731 69 RxNorm Not Available [employer] - External Data Service - prod 16:07:32 26463 aluminum aspirin Not available Not available Not available Not available 01/28/20252009 611 RxNorm Other react ion(s ): face swell ed unrec ogniz ed react ion (text : Unkno wn, code: 43686 5006) (from [facility]) Qing Hughes MD [address] [place] [address],[address], [place], [place], [address] [place] [address] 0, [employer] 16:08:38 15766 cortisone medicatio n Not available Not available Not available 01/28/20252019 2878 RxNorm put is unsur e Qing Hughes MD [address] [place] [address],[address], [place], [place], [address] [place] [address], [employer] 16:10:56 65031 doxycycli ne Not available Not available Not available Not available 01/28/20252021 3640 RxNorm unrec ogniz ed react ion (text : Unkno wn, code: 90627 5006) (from [facility]) Not Available [employer] - External Data Service [...] Available No t Available [employer] 2 [place] USE DIRECTED TO TEST BLOOD SUGAR EVERY [...] Available No t Available [employer] 3 [place] USE DIRECTED TO TEST BLOOD SUGAR active [...] /min 98 [degF] 126/83 mm[Hg] Not Available [employer] - production 16:18:21 Date Recorded Body temperature Oxygen saturation Heart rate Body weight Respiratory rate Body height Systolic And Diastolic Provider Name and Address Organization Details Last Updated DateTime 5 97.6 [degF] 95 % 82 /min 75312.8 88 g 16 /min 157.48 cm 122/84 mm[Hg] Not Available [employer] 17:32:44 Date Recorded Heart rate Oxygen saturation Body weight Respiratory rate Body temperature Body height Systolic And Diastolic Provider Name and Address Organization Details Last Updated DateTime 5 70 /min 96 % 76872.7 28 g 16 /min 98.3 [degF] 157.48 cm 130/87 mm[Hg] Not Available [employer] 16:02:16 Social History None recorded. Functional Status None recorded. Mental Status None recorded. Family History Nothing Reported. Medical History No medical history recorded. Gynecological HistoryNo gynecological history recorded. Obstetrics History GPAL:G 0 P 0 0 0 0 Past Encounters Encounter ID Performer Location Encounter Start Date Encounter Closed Date Diagnosis/Indication Diagnosis SNOMED-CT Code Diagnosis ICD10 Code Diagnosis IMO Codes Diagnosis Note [id number] Kathy Gonzalez MD Main - [address] [address] 05/29/2024 16:18:16 05/30/2024 23:53:07 Wound finding [id number] Z51.89 [id number] Evaluation in the field was performed by my travel money advisor colleague, as noted above, I provided real-time [...] shortness of breath, cough, chest pain, fever. [id number] MORGAN JAY MD [facility] ED Medical [address] [address] 09/23/2024 17:32:41 09/23/2024 22:05:40 Nausea and vomiting [id number] R11.2 [id number] Qing Hughes MD [facility] Medical [address] [address] 01/28/2025 16:02:13 01/31/2025 13:04:30 Upper respiratory tract finding 141860826 R09.89 [id number] rapid covid/ flu negativepa tient afebrile lungs [...] further reduce congestion . states family can pickle solution maker rx today/pat has had prednisone before without [...] Laws Member ID Guarantor Name 01/28/2025 1 [facility] - DOS ON OR AFTER 2022 - DUAL ELIGIBLE - RESIDENTIAL OPTIONS AND ONE CARE (MEDICARE REPLACEMENT/ADV ANTAGE - HMO) Nuvia Da Silva [id number] Nuvia Da Silva Notes Date Note Type Note Provider Name and Address Organization Details Recorded Time 05/29/2024 text/html CRC Nurse Triage Notes (Tania Kan): Reason For Request: wound care after surgery Chief Complaints: Wound Care PMH: Diabetes Mellitus Type 2, Hyperlipidemia, Hypertension, Kidney Stones, Hysterectomy, Hypothyroidism, Asthma PMH Reviewed at 05/29/2024 - Allergies Reviewed at 05/29/2024 - Comments: Referral taken via Supervisor Rice Milling, patient calling in to place a referral. [...] ...................... ...................... ...................... ...................... ...................... ...................... ......... Powerhouse Electrician Apprentice Note From Albert Murphy: Arrived to find patient ambulating in her apartment. Patient AOX4, GCS 15, skin pink warm and dry. Patient Ghanaian speaking only. Gypsum Block Setter line used. Patient had hernia surgery on and is wondering if the steri strips are suppose to remain or if she needs to remove them. Educated patient that they stay and will fall off on their own. VS as noted. [facility] came on and was able to interact with patient. answered all questions for pt. Patient reassured. Red flags went over with pt. Patient denies any cp, sob, fevers. Incision looks clean and intact. ...................... ...................... ...................... ...................... ...................... ...................... ......... [facility] Consulted: Kathy Gonzalez ...................... ...................... ...................... ...................... ...................... ...................... ......... Disposition: Fulfilled Kathy Gonzalez MD [address] [place] [address],[address], [place], [address], [employer] 05/29/2024 16:25:31 09/23/2024 text/html ROS as noted in the HPI [...] PMH Reviewed at 09/23/2024 Allergies Reviewed at 09/23/2024 Comments: 64 y.o female c/o chest tightness [...] until assessment. POC glucose was 119. Primarily Ghanaian Speaking. Referral for GI upset, chest congestion/cough/weakn ess. Member aware. I provided information on the mobile health provider response time and advised the patient and/or caregiver to monitor reported signs and symptoms. I discussed the warning signs of when to seek emergency care. ...................... ...................... ...................... ...................... ...................... ...................... ......... Powerhouse Electrician Apprentice Note From Sebastien Bliss: [facility] visit for female pt with complaint of vomiting. Visit was completed with cylinder handler by phone. Pt reports single episode of [...] shortness of breath. Consulted with [facility] [place] Jay who prescribed some zofran sent to pt's pharmacy. Red flags relayed by Dr. Jay. Pt education provided. ...................... ...................... ...................... ...................... ...................... ...................... ......... [facility] Consulted: Morgan Jay ...................... ...................... ...................... ...................... ...................... ...................... ......... Disposition: Karen JAY MD [address] [facility],[address], [place], [address], [employer] Ofelia FelizMONICA 09/23/2024 20:39:32 01/28/2025 text/html ROS as noted in the [...] 01/28/2025 - 11:50 (ET)Allergies Reviewed at 01/28/2025 11:50 (ET)Comments: 64 y.o female complains of [...] warning signs of when to seek emergency care.allerg y to some ABX but unsure which oneasked again with able seaman but not sure again Powerhouse Electrician Apprentice Organization Information for Lucas Oliveros Arline Chong Legal Name: [employer]. A ddress: [address] [place] [address], [place] [address], USMedical Director: Benjamín Arechiga [facility] No.: [id number] Powerhouse Electrician Apprentice POC Test Results from Lucas Oliveros RIP Rapid influenza antigen (16:00:23)Flu: - Rapid COVID antigen (16:00:24)COVID: - ...................... ...................... ...................... ...................... ...................... ...................... ......... Powerhouse Electrician Apprentice Note From Lucas Oliveros: [facility] makes pt contact a 64 yo F CC of wheezing. [facility] uses speech language assistant, obtains vital signs. PT tests negative for [...] allergies to antibiotics confirmed and listed on [employer] kelby. [facility] contacts [facility] and [...] an appointment with her PCP. PT understands. [facility] clear. [facility] Lab Orders: rapid SARS CoV 2 Ag, QL IA, respiratory specimen: Performed rapid flu (A+B): Performed ...................... ...................... ...................... ...................... ...................... ...................... ......... [facility] Consulted: Qing Hughes ...................... ...................... ...................... ...................... ...................... ...................... ......... Disposition: Fulfilled SEGMD: Patient took her last [...] during the visit Qing Hughes MD [address] [facility],[address], [place], [address], [employer] - [employer] 01/29/2025 22:54:27 OBGyn Episode No OBEpisode recorded.
--- OUTSIDE RECORDS SUMMARY | 2025-02-03 17:46 | XMS_ITS | Encounter Summary ---
Author Organization [employer] Address [address] [facility] 7t [place] [address] Care Team Providers Care Manager Council Name Role Phone Sariah Vickers Primary Care Provider Yuri Pierre PharmD Unavailable Basilio Hall MD Unavailable Ron Preciado MD Unavailable [phone] Felipe Alanis MD Unavailable Rosemary Moses NP Unavailable May Unavailable Reason for Visit * Reason Comments Med Refill Encounter Details Date Type Department Care Team (Late st Contact Info) Description 05/23/2024 Refill [facility] MED & PEDS [address] [place] [address] Sariah Vickers ANP [address] [place] [address] Cervicalgia Social History Tobacco Use Types Packs/Day [...] Info) Description 04/04/2025 10:00 AM EST Telemedicine [facility] & PEDS [address] [place] [address] Azeb Hall, RN [address] [place] [address] 05/10/2025 1:00 PM EDT Office Visit [facility] [address] [place] [address] Sariah Vickers ANP [address] [place] [address] documented as of this encounter Goals Goal Patient Goal Type Associated Problems Recent Progress Patient-Stated? Author Blood Pressure < 140/90 Blood Pressure 124/80(2024 11:12 AM EST) No Aida Ragland, PharmD Record Your Blood Sugar As Directed General No Aida Ragland, PharmD Hemoglobin A1c < 7 Result Component 6.6(11/25/202 5 12:59 PM EST) Aida Enrst PharmD documented as of this encounter Visit Diagnoses Diagnosis Cervicalgia documented in this encounter Additional Health Concerns Assessment Noted Time PHQ-9 Depression Total Score: 12 024 2:58 PM EDT documented as of this encounter Care Teams Manager Council Relationship Specialty Start Date End Date Sariah Vickers ANP [address] [place] [address] PCP - General Family Medicine 09/23/19 Yuri Pierre, PharmD [address] [place] [address] Pharmacist Internal Medicine 05/05/24 02/03/25 Basilio Hall MD [address] [place] [address] Cardiology 05/17/24 01/10/25 Ron Preciado MD [address] [place] [address] Pulmonary Disease 05/17/24 Felipe Alanis MD [address] [place] [address] Cardiology 01/11/25 Rosemary Moses NP [address] [place] [address] Urology 01/11/[address] [place] [address] Gastroenterology 01/11/25 documented as of this encounter
--- OUTSIDE RECORDS SUMMARY | 2025-02-03 17:46 | XMS_ITS | Encounter Summary ---
Author Organization [employer] Address [address] [facility] 7t [place] [address] Care Team Providers Care Overlock Collar Setter Name Role Phone Sariah Vickers Primary Care Provider Yuri Pierre PharmD Unavailable [phone] Basiilo Hall MD Unavailable [phone] Ron Preciado MD Unavailable [phone] Felipe Alanis MD Unavailable Rosemary Moses NP Unavailable May Unavailable Reason for Visit * Reason Comments Med Refill Encounter Details Date Type Department Care Team (Late st Contact Info) Description 08/14/2022 Refill [facility] CH[facility] MED & PEDS [address] [place] [address] Sariah Vickers ANP [address] [place] [address] Severe persistent asthma without complication Social History [...] [facility] [address] [place] [address] Azeb Hall, RN [address] [place] [address] 05/10/2025 1:00 PM EDT Office Visit [facility] MEDICINE [address] [place] [address] Sariah Vickers ANP [address] [place] [address] documented as of this encounter Visit Diagnoses Diagnosis Severe persistent asthma without complication (HCC) documented in this encounter Care Teams Overlock Collar Setter Relationship Specialty Start Date End Date Sariah Vickers ANP [address] [place] [address] PCP - General Family Medicine 09/23/19 Yuri Pierre, MikeD [address] [place] [address] Pharmacist Internal Medicine 05/05/24 02/03/25 Basilio Hall MD [address] [place] [address] Cardiology 05/17/24 01/10/25 Ron Preciado MD [address] [place] [address] Pulmonary Disease 05/17/24 Felipe Alanis MD [address]rd [place] [address] Cardiology 01/11/25 Rosemary Moses NP [address] [place] [address] Urology 01/11/25 Jodee May [address] 3rd [place] [address] Gastroenterology 01/11/25 documented as of this encounter
--- OUTSIDE RECORDS SUMMARY | 2025-02-03 17:46 | XMS_ITS | Encounter Summary ---
Author Organization [employer] Address [address] [facility] 7t [place] [address] Care Team Providers Care Tank Riveter Name Role Phone Sariah Vickers Primary Care Provider Yuri Pierre PharmD Unavailable Basilio Hall MD Unavailable [phone] Ron Preciado MD Unavailable [phone] Felipe Alanis MD Unavailable [phone] Rosemary Moses NP Unavailable May Unavailable Reason for Visit * Reason Comments Med Refill Encounter Details Date Type Department Care Team (Late st Contact Info) Description 07/12/2022 Refill [facility] MEDICINE [address] [place], [place] [phone] Sariah Vickers ANP [address] [place] [address] Social History Tobacco Use Types Packs/Day Years [...] 04/04/2025 10:00 AM EST Telemedicine [facility] CH[facility] MED & PEDS [address] [place] [address] Azeb Hall, MARTIN [address] [place] [address] 05/10/2025 1:00 PM EDT Office Visit [facility] MEDICINE [address] [place] [address] Sariah Vickers ANP [address] [place] [address] documented as of this encounter Visit Diagnoses Not on filedocumented in this encounter Care Teams Tank Riveter Relationship Specialty Start Date End Date Sariah Vickers ANP [address] [place] [address] PCP - General Family Medicine 09/23/19 Yuri Pierre, MikeD [address] [place] [address] Pharmacist Internal Medicine 05/05/24 02/03/25 Basilio Hall MD [address] [place] [address] Cardiology 05/17/24 01/10/25 Ron Preciado MD [address] [place] [address] Pulmonary Disease 05/17/24 Felipe Alanis MD 11 [facility] 3rd [place] [address] Cardiology 01/11/25 Rosemary Moses NP [address] [place] [address] Urology 01/11/25 Jodee May [address] 3rd [place] [address] Gastroenterology 01/11/25 documented as of this encounter
--- OUTSIDE RECORDS SUMMARY | 2025-02-03 17:46 | XMS_ITS | Encounter Summary ---
Author Organization [employer] Address [address] [facility] 7t [place] [address] Care Team Providers Care Senior Technical Business Analyst Name Role Phone Sariah Vickers Primary Care Provider Yuri Pierre PharmD Unavailable Basilio Hall MD Unavailable [phone] Ron Preciado MD Unavailable [phone] Felipe Alanis MD Unavailable Rosemary Moses NP Unavailable May Unavailable Reason for Visit * Reason Comments Med Refill Encounter Details Date Type Department Care Team (Late st Contact Info) Description 07/10/2022 Refill [facility] [address] [place] [address] Sariah Vickers ANP [address] [place] [address] Vertigo Social History Tobacco Use Types Packs/Day [...] 04/04/2025 10:00 AM EST Telemedicine [facility] CHC MED & PEDS [address] [place], [place] [phone] Azeb Hall, MARTIN [address] [place] [address] 05/10/2025 1:00 PM EDT Office Visit [facility] [address] [place] [address] Sariah Vickers ANP [address] [place] [address] documented as of this encounter Visit Diagnoses Diagnosis Vertigo Dizziness and giddiness documented in this encounter Care Teams Senior Technical Business Analyst Relationship Specialty Start Date End Date Sariah Vickers ANP [address] [place] [address] PCP - General Family Medicine 09/23/19 Yuri Pierre, MikeD [address] [place] [address] Pharmacist Internal Medicine 05/05/24 02/03/25 Basilio Hall MD [address] [place] [address] Cardiology 05/17/24 01/10/25 Ron Preciado MD 5 [place] [address] Pulmonary Disease 05/17/24 Felipe Alanis MD 11 [facility] 3rd [place] [address] Cardiology 01/11/25 Rosemary Moses NP [address] [place] [address] Urology 01/11/25 Jode[address] Umm [address] 3rd [place] [address] Gastroenterology 01/11/25 documented as of this encounter
--- OUTSIDE RECORDS SUMMARY | 2025-02-03 17:46 | XMS_ITS | Encounter Summary ---
Author Organization [employer] Address [address] [facility] 7t [place] [address] Care Team Providers Care Resident Care Manager Name Role Phone Sariah Vickers Primary Care Provider Yuri Pierre PharmD Unavailable Basilio Hall MD Unavailable [phone] Ron Preciado MD Unavailable [phone] Felipe Alanis MD Unavailable Rosemary Moses NP Unavailable May Unavailable Reason for Visit * Reason Comments Med Refill Encounter Details Date Type Department Care Team (Late st Contact Info) Description 07/17/2022 Refill [facility] MEDICINE [address] [place] [address] Sariah Vickers ANP [address] [place] [address] Neck pain Social History Tobacco Use Types [...] Info) Description 04/04/2025 10:00 AM EST Telemedicine [facility] CHC MED & PEDS [address] [place] [address] Azeb Hall, MARTIN [address] [place] [address] 05/10/2025 1:00 PM EDT Office Visit [facility] MED[facility]INE [address] [place] [address] Sariah Vickers ANP [address] [place] [address] documented as of this encounter Visit Diagnoses Diagnosis Neck pain Cervicalgia documented in this encounter Care Teams Resident Care Manager Relationship Specialty Start Date End Date Sariah Vickers ANP [address] [place] [address] PCP - General Family Medicine 09/23/19 Yuri Pierre, MikeD [address] [place] [address] Pharmacist Internal Medicine 05/05/24 02/03/25 Basilio Hall MD [address] [place] [address] Cardiology 05/17/24 01/10/25 Ron Preciado MD [address] [place] [address] Pulmonary Disease 05/17/24 Felipe Alanis MD 11 [facility] 3rd [place] [address] Cardiology 01/11/25 Rosemary Moses NP [address] [place] [address] Urology 01/11/25 Jodee May [address] 3rd [place] [address] Gastroenterology 01/11/25 documented as of this encounter
--- OUTSIDE RECORDS SUMMARY | 2025-02-03 17:46 | XMS_ITS | Continuity of Care Document ---
Author Name [facility], Medical Address [address] [place] [address] Organization Unknown Address [address] [place] [address] Medications No known medications Problems No known problems
== END 2025-02-03 14:09 | disposition home or self-care (01) ==
LOC: HO.HPS 13:35
PROVIDERS: PCP Nurse Practitioner Primary Care; Visit Provider Internal Medicine Pulmonary Disease
DX: J44.89 Other specified chronic obstructive pulmonary disease (principal); Z91.09 Other allergy status, other than to drugs and biological substances; F17.200 Nicotine dependence, unspecified, uncomplicated
CPT/HCPCS: 99214

== ENCOUNTER → 2025-02-03 13:34 | Outpatient (BNVA) | payer OTHER, SELFPAY | PROVIDERS: PCP Nurse Practitioner Primary Care; Visit Provider Internal Medicine Pulmonary Disease | DX: J44.89 Other specified chronic obstructive pulmonary disease (principal); Z91.09 Other allergy status, other than to drugs and biological substances; F17.200 Nicotine dependence, unspecified, uncomplicated; Z79.899 Other long term (current) drug therapy | CPT/HCPCS: 99212 ==

== ENCOUNTER 2025-02-16 11:00 | Outpatient (AMB) | payer OTHER, SELFPAY ==
--- OUTSIDE RECORDS SUMMARY | 2025-02-16 12:37 | XMS_ITS | Encounter Summary ---
Author Organization [employer] Address [address] 7t [place] [address] Care Team Providers Care Yard Pipe Grader Name Role Phone Sariah Vickers Primary Care Provider [phone] Yuri Pierre PharmD Unavailable [phone] Basilio Hall MD Unavailable [phone] Ron Preciado MD Unavailable [phone] Felipe Alanis MD Unavailable [phone] Rosemary Moses NP Unavailable May Unavailable Reason for Visit * Reason Comments Med Refill Pt wants to know if she can keep taking prednis Encounter Details Date Type Department Care Team (Late st Contact Info) Description 06/26/[address] [facility] CHC MED & PEDS [address] [place], [place] [phone] Sariah Vickers ANP 230 [place] [address] Cervicalgia Social History Tobacco Use Types Packs/Day [...] Info) Description 04/04/2025 10:[address] [facility] MED & PEDS 505 [place] [address] Azeb Hall, RN 505 [place] [address] 05/10/2025 1:00 PM EDT Office Visit [facility] MEDICINE 230 [place] [address] Sariah Vickers ANP 230 [place] [address] documented as of this encounter Goals Goal [...] documented as of this encounter Care Teams Yard Pipe Grader Relationship Specialty Start Date End Date Sariah Vickers ANP 230 [place] [address] PCP - General Family Medicine 09/23/19 Yuri Pierre, MikeD 230 [place] [address] Pharmacist Internal Medicine 05/05/24 02/03/25 Basilio Hall MD 596 [place] [address] Cardiology 05/17/24 01/10/25 Ron Preciado MD 5 [place] [address] Pulmonary Disease 05/17/24 Felipe lAanis MD [address] 3rd [place] [address] Cardiology 01/11/25 Rosemary Moses NP [address] [place] [address] Urology 01/11/25May [address] 3rd [place] [address] Gastroenterology 01/11/25 documented as of this encounter
--- OUTSIDE RECORDS SUMMARY | 2025-02-16 12:37 | XMS_ITS | Encounter Summary ---
Author Organization [employer] Address [address] [facility] 7t [place] [address] Care Team Providers Care Wildlife Protector Name Role Phone Sariah Vickers Primary Care Provider Yuri Pierre PharmD Unavailable Basilio Hall MD Unavailable Ron Preciado MD Unavailable [phone] Felipe Alanis MD Unavailable [phone] Rosemary Moses NP Unavailable May Unavailable Reason for Visit * Reason Comments Med Refill Encounter Details Date Type Department Care Team (Late st Contact Info) Description 11/14/2023 Refill [facility] MEDICINE 230 [place] [address] Sariah Vickers ANP 230 [place] [address] Neck pain Social History Tobacco Use Types [...] EST Telemedicine [facility] CHC MED & PEDS 505 [place] [address] Azeb Hall, MARTIN 505 [place] [address] 05/10/2025 1:00 PM EDT Office Visit [facility] MEDICINE 230 [place] [address] Sariah Vickers ANP 230 [place] [address] documented as of this encounter Goals Goal [...] as of this encounter Care Teams Wildlife Protector Relationship Specialty Start Date End Date Sariah Vickers ANP 230 [place] [address] PCP - General Family Medicine 09/23/19 Yuri Pierre, PharmD 230 [place] [address] Pharmacist Internal Medicine 05/05/24 02/03/25 Basilio Hall MD 596 [place] [address] Cardiology 05/17/24 01/10/25 Ron Preciado MD 5 [place] [address] Pulmonary Disease 05/17/24 Felipe Alanis MD [address] [place] [address] Cardiology 01/11/25 Rosemary Moses NP [address] [place] [address] Urology 01/11/[address] [place] [address] Gastroenterology 01/11/25 documented as of this encounter
--- OUTSIDE RECORDS SUMMARY | 2025-02-16 12:37 | XMS_ITS | Encounter Summary ---
Author Organization [employer] Address [address] 7t [place] [address] Care Team Providers Care Saddle And Side Wire Stitcher Name Role Phone Sariah iVckers Primary Care Provider Yuri Pierre PharmD Unavailable Basilio Hall MD Unavailable Ron Preciado MD Unavailable [phone] Felipe Alanis MD Unavailable Rosemary Moses NP Unavailable May Unavailable Reason for Visit * Reason Comments Med Refill Encounter Details Date Type Department Care Team (Late st Contact Info) Description 11/26/2023 Refill [facility] MEDICINE 230 [place] [address] Sariah Vickers ANP 230 [place] [address] Vertigo Social History Tobacco Use Types Packs/Day [...] 04/04/2025 10:00 AM EST Telemedicine [facility] CHC MED & PEDS 505 [place] [address] Azeb Hall, MARTIN 505 [place] [address] 05/10/2025 1:00 PM EDT Office Visit [facility] MEDICINE 230 [place] [address] Sariah Vickers ANP 230 [place] [address] documented as of this encounter Goals Goal [...] documented as of this encounter Care Teams Saddle And Side Wire Stitcher Relationship Specialty Start Date End Date Sariah Vickers ANP 230 [place] [address] PCP - General Family Medicine 09/23/19 Yuri Pierre, PharmD 230 [place] [address] Pharmacist Internal Medicine 05/05/24 02/03/25 Basilio Hall MD 596 [place] [address] Cardiology 05/17/24 01/10/25 Ron Preciado MD 5 [place] [address] Pulmonary Disease 05/17/24 Felipe Alanis MD [address] [place] [address] Cardiology 01/11/25 Rosemary Moses NP [address] [place] [address] Urology 01/11/[address] 3rd [place] [address] Gastroenterology 01/11/25 documented as of this encounter
--- OUTSIDE RECORDS SUMMARY | 2025-02-16 12:37 | XMS_ITS | Encounter Summary ---
Author Organization [employer] Address 75 [facility] 7t [place] [address] Care Team Providers Care Earth Burner Name Role Phone Sariah Vickers Primary Care Provider Yuri Pierre PharmD Unavailable Basilio Hall MD Unavailable [phone] Ron Preciado MD Unavailable [phone] Felipe Alanis MD Unavailable [phone] Rosemary Moses NP Unavailable Ellsworth[place] Unavailable Encounter Details Date Type Department Care Team (Latest Contact Info) Description 05/15/2018 Abstract [facility] CONVERSIONS Dental, Provider, [...] [facility] CH[facility] MED [facility] PEDS 505 [place], [place] [phone] Azeb Hall, MARTIN 505 [place], [place] [phone] 05/10/2025 1:00 PM EDT Office Visit [facility] MEDICINE 230 [place], [place] [phone] Sariah Vickers ANP 230 [place] [address] documented as of this encounter Visit Diagnoses Not on filedocumented in this encounter Care Teams Earth Burner Relationship Specialty Start Date End Date Sariah Vickers ANP 230 [place] [address] PCP - General Family Medicine 09/23/19 Yuri Pierre, MikeD 230 [place] [address] Pharmacist Internal Medicine 05/05/24 02/03/25 Basilio Hall MD [address] [place] [address] Cardiology 05/17/24 01/10/25 Ron Preciado MD 5 [place] [address] Pulmonary Disease 05/17/24 Felipe Alanis MD [address] [place] [address] Cardiology 01/11/25 Rosemary Moses NP [address] [place] [address] Urology 01/11/25 Jodee May [address] [place] [address] Gastroenterology 01/11/25 documented as of this encounter
--- OUTSIDE RECORDS SUMMARY | 2025-02-16 12:37 | XMS_ITS | Encounter Summary ---
Author Organization [employer] Address [address] [facility] 7t [place] [address] Care Team Providers Care Instructor Looping Name Role Phone Sariah Vickers KAYLEE Primary Care Provider Ron Preciado MD Unavailable [phone] Felipe Alanis MD Unavailable [phone] Rosemary Moses NP Unavailable May Unavailable Reason for Visit * Reason Comments Med Refill Encounter Details Date Type Department Care Team (Late st Contact Info) Description 02/15/2025 Refill [facility] 230 [place] [address] Jess Coyne MD [address] [place] [address] Severe persistent asthma without complication (HCC) Social History Tobacco Use Types Packs/Day [...] the past 12 months, has t he [place] [employer] gas, oil or water [employer] threatened to shut off services in your [...] Info) Description 04/04/2025 10:00 AM EST Telemedicine [facility] CHC MED & PEDS 505 [place] [address] Azeb Hall, MARTIN 505 [place] [address] 05/10/2025 1:00 PM EDT Office Visit [facility] MEDICINE 230 [place] [address] Sariah Vickers, ANP 230 [place] [address] documented as of this encounter Goals Goal Patient Goal Type Associated Problems Recent Progress Patient-Stated? Author Blood Pressure < 140/90 Blood Pressure 124/80(2024 11:12 AM EST) No Aida Corona PharmD Record Your Blood Sugar As Directed General No Aida Corona PharmD Hemoglobin A1c < 7 Result Component 6.6(11/25/202 5 12:59 PM EST) No Aida Corona, [...] chronic kidney disease No Yuri Pierre PharmD Weekly blood pressure [...] without complication (HCC) documented in this encounter Additional Health [...] 02/03/2025 Patient has chronic kidney disease 02/03/2025 Weekly blood pressure task 02/09/2025 Weekly blood pressure task 02/09/2025 Patient has chronic kidney disease 02/09/2025 Patient has chronic kidney disease 02/09/2025 Assessment Noted Time PHQ-9 Depression Total Score: 14 025 1:03 PM EST documented as of this encounter Care Teams Instructor Looping Relationship Specialty Start Date End Date Sariah Vickers ANP [address] [place] [address] PCP - General Family Medicine 09/23/19 Ron Preciado MD 5 [place] [address] Pulmonary Disease 05/17/24 Felipe Alanis MD [address] [place] [address] Cardiology 01/11/25 Rosemary Moses NP [address] [place] [address] Urology 01/11/[address] [place] [address] Gastroenterology 01/11/25 documented as of this encounter
--- OUTSIDE RECORDS SUMMARY | 2025-02-16 12:37 | XMS_ITS | Encounter Summary ---
Author Organization [employer] Address 75 [facility] 7t [place] [address] Care Team Providers Care Sales Support Assistant Name Role Phone Sariah Vickers Primary Care Provider Yuri Pierre PharmD Unavailable Basilio Hall MD Unavailable Ron Preciado MD Unavailable [phone] Felipe Alanis MD Unavailable [phone] Rosmeary Moses NP Unavailable May Unavailable Reason for Visit * Reason Onset Date Comments Durable Medical Equipment 03/15/2022 Encounter Details Date Type Department Care Team (Late st Contact Info) Description 03/15/2022 Telephone [facility] MEDICINE 230 [place] [address] Sariah Vickers ANP 230 [place] [address] Durable Medical Equipment Social History Tobacco Use [...] ([facility] st Contact Info) Description 04/04/2025 10:00 AM EST Telemedicine [facility] CHC MED & PEDS 505 [place] [address] Azeb Hall RN 505 [place] [address] 05/10/2025 1:00 PM EDT Office Visit [facility] MEDICINE [address] [place] [address] Sariah Vickers ANP [address] [place] [address] documented as of this encounter Visit Diagnoses Not on filedocumented in this encounter Care Teams Sales Support Assistant Relationship Specialty Start Date End Date Sariah Vickers ANP [address] [place] [address] PCP - General Family Medicine 09/23/19 Yuri Pierre, MikeD [address] [place] [address] Pharmacist Internal Medicine 05/05/24 02/03/25 Basilio Hall MD 596 [place] [address] Cardiology 05/17/24 01/10/25 Ron Preciado MD 5 [place] [address] Pulmonary Disease 05/17/24 Felipe Alanis MD [address] 3rd [place] [address] Cardiology 01/11/25 Rosemary Moses NP [address] [place] [address] Urology 01/11/25 Jodee Umm 11 [facility] 3rd [place] [address] Gastroenterology 01/11/25 documented as of this encounter
--- OUTSIDE RECORDS SUMMARY | 2025-02-16 12:37 | XMS_ITS | Encounter Summary ---
Author Organization [employer] Address [address] [facility] 7t [place] [address] Care Team Providers Care Lead Cashier Name Role Phone Sariah Vickers Primary Care Provider [phone] Yuri Pierre PharmD Unavailable [phone] Basilio Hall MD Unavailable Ron Preciado MD Unavailable [phone] Felipe Alanis MD Unavailable Rosemary Moses NP Unavailable May Unavailable Reason for Visit * Reason Onset Date Comments Med Refill 09/18/2023 Encounter Details Date Type Department Care Team (Late st Contact Info) Description 09/18/2023 Telephone [facility] MEDICINE 230 [place], [place] [phone] Sariah Vickers ANP 230 [place] [address] Med Refill Social History Tobacco Use Types [...] to: [facility] [place], [place] - [address] [place] [address] documented in this encounter Plan of Treatment Upcoming Encounters Date Type Department Care Team (Late st Contact Info) Description 04/04/2025 10:00 AM EST Telemedicine [facility] CHC MED & PEDS 505 [place] [address] Azeb Hall, MARTIN 505 [place] [address] 05/10/2025 1:00 PM EDT Office Visit [facility] MEDICINE 230 [place] [address] Sariah Vickers, ANP 230 [place] [address] documented as of this encounter Goals Goal [...] as of this encounter Care Teams Lead Cashier Relationship Specialty Start Date End Date Sariah Vickers ANP 230 [place] [address] PCP - General Family Medicine 09/23/19 Yuri Pierre, MikeD 230 [place] [address] Pharmacist Internal Medicine 05/05/24 02/03/25 Basilio Hall MD 596 [place] [address] Cardiology 05/17/24 01/10/25 Ron Preciado MD 5 [place] [address] Pulmonary Disease 05/17/24 Felipe Alanis MD [address] 3rd [place] [address] Cardiology 01/11/25 Rosemary Moses NP [address] [place] [address] Urology 01/11/[address] 3rd [place] [address] Gastroenterology 01/11/25 documented as of this encounter
--- OUTSIDE RECORDS SUMMARY | 2025-02-16 12:37 | XMS_ITS | Encounter Summary ---
Author Organization [employer] Address [address] [facility] 7t [place] [address] Care Team Providers Care Sweet Pickled Fruit Maker Name Role Phone Sariah Vickers Primary Care Provider Yuri Pierre PharmD Unavailable [phone] Basilio Hall MD Unavailable Ron Preciado MD Unavailable [phone] Felipe Alanis MD Unavailable [phone] Rosemary Moses NP Unavailable May Unavailable Reason for Visit * Reason Comments Med Refill Encounter Details Date Type Department Care Team (Late st Contact Info) Description 06/17/2024 Refill [facility] 230 [place] [address] Sariah Vickers ANP 230 [place] [address] Neck pain Social History Tobacco Use Types [...] [facility] 505 [place] [address] Azeb Hall, RN 505 [place] [address] 05/10/2025 1:00 PM EDT Office Visit [facility] MEDICINE 230 [place] [address] Sariah Vickers ANP 230 [place] [address] documented as of this encounter Goals Goal [...] documented as of this encounter Care Teams Sweet Pickled Fruit Maker Relationship Specialty Start Date End Date Sariah Vickers ANP 230 [place] [address] PCP - General Family Medicine 09/23/19 Yuri Pierre, PharmD 230 [place] [address] Pharmacist Internal Medicine 05/05/24 02/03/25 Basilio Hall MD 596 [place] [address] Cardiology 05/17/24 01/10/25 Ron Preciado MD 5 [place] [address] Pulmonary Disease 05/17/24 Felipe Alanis MD [address]rd [place] [address] Cardiology 01/11/25 Rosemary Moses NP [address] [place] [address] Urology 01/11/[address] 3rd [place] [address] Gastroenterology 01/11/25 documented as of this encounter
--- OUTSIDE RECORDS SUMMARY | 2025-02-16 12:37 | XMS_ITS | Encounter Summary ---
Author Organization [employer] Address [address] [facility] 7t [place] [address] Care Team Providers Care Digital Recruiter Name Role Phone Sariah Vickers Primary Care Provider [phone] Yuri Pierre PharmD Unavailable [phone] Basilio Hall MD Unavailable Ron Preciado MD Unavailable Felipe Alanis MD Unavailable Rosemary Moses NP Unavailable May Unavailable Reason for Visit * Reason Comments Med Refill Encounter Details Date Type Department Care Team (Late st Contact Info) Description 12/17/2023 Refill [facility] MEDICINE 230 [place] [address] Sariah Vickers ANP 230 [place] [address] Chronic SI joint pain Social History Tobacco [...] Info) Description 04/04/2025 10:00 AM EST Telemedicine [facility] CHC MED & PEDS 505 [place] [address] Azeb Hall, RN 505 [place] [address] 05/10/2025 1:00 PM EDT Office Visit [facility] MEDICINE 230 [place] [address] Sariah Vickers, KAYLEE 230 [place] [address] documented as of this encounter Goals Goal [...] as of this encounter Care Teams Digital Recruiter Relationship Specialty Start Date End Date Sariah Vickers ANP 230 [place] [address] PCP - General Family Medicine 09/23/19 Yuri Pierre, PharmD 230 [place] [address] Pharmacist Internal Medicine 05/05/24 02/03/25 Basilio Hall MD 596 [place] [address] Cardiology 05/17/24 01/10/25 Ron Preciado MD 5 [place] [address] Pulmonary Disease 05/17/24 Felipe Alanis MD [address] [place] [address] Cardiology 01/11/25 Rosemary Moses NP [address] [place] [address] Urology 01/11/25May [address] 3rd [place] [address] Gastroenterology 01/11/25 documented as of this encounter
--- OUTSIDE RECORDS SUMMARY | 2025-02-16 12:37 | XMS_ITS | Encounter Summary ---
Author Organization [employer] Address [address] [facility] 7t [place] [address] Care Team Providers Care Supervisor Dyer Name Role Phone Sariah Vickers Primary Care Provider Yuri Pierre PharmD Unavailable [phone] Basilio Hall MD Unavailable [phone] Ron Preciado MD Unavailable [phone] Felipe Alanis MD Unavailable Rosemary Moses NP Unavailable May Unavailable Reason for Visit * Reason Comments Med Refill Encounter Details Date Type Department Care Team (Late st Contact Info) Description 03/26/2022 Refill [facility] MEDICINE 230 [place] [address] Sariah Vickers ANP 230 [place] [address] Social History Tobacco Use Types Packs/Day Years [...] Upcoming Encounters Date Type Department Care Team ([facility] st Contact Info) Description 04/04/2025 10:00 AM EST Telemedicine [facility] CHC MED & PEDS 505 [place] [address] Azeb Hall, MARTIN 505 [place] [address] 05/10/2025 1:00 PM EDT Office Visit [facility] MEDICINE [address] [place] [address] Sariah Vickers ANP 230 [place] [address] documented as of this encounter Visit Diagnoses Not on filedocumented in this encounter Care Teams Supervisor Dyer Relationship Specialty Start Date End Date Sariah Vickers ANP [address] [place] [address] PCP - General Family Medicine 09/23/19 Yuri Pierre, MikeD [address] [place] [address] Pharmacist Internal Medicine 05/05/24 02/03/25 Basilio Hall MD 596 [place] [address] Cardiology 05/17/24 01/10/25 Ron Preciado MD 5 [place] [address] Pulmonary Disease 05/17/24 Felipe Alanis MD 11 [facility] 3rd [place] [address] Cardiology 01/11/25 Rosemary Moses NP [address] [place] [address] Urology 01/11/25 [address]mm [address] 3rd [place] [address] Gastroenterology 01/11/25 documented as of this encounter
--- OUTSIDE RECORDS SUMMARY | 2025-02-16 12:37 | XMS_ITS | Encounter Summary ---
Author Organization [employer] Address [address] [facility] 7t [place] [address] Care Team Providers Care Radiologist Name Role Phone Sariah Vickers Primary Care Provider [phone] Yuri Pierre PharmD Unavailable [phone] Basilio Hall MD Unavailable [phone] Ron Preciado MD Unavailable [phone] Felipe Alanis MD Unavailable Rosemary Moses NP Unavailable May Unavailable Reason for Visit * Reason Comments Med Refill Encounter Details Date Type Department Care Team (Late st Contact Info) Description 11/24/2023 Refill [facility] MEDICINE 230 [place] [address] Sariah Vickers ANP 230 [place] [address] Vertigo Social History Tobacco Use Types Packs/Day [...] is your housing situation today? I have rodirgo kent 06/23/[address] you [...] Info) Description 04/04/2025 10:00 AM EST Telemedicine [facility] CHC MED & PEDS 505 [place] [address] Azeb Hall, MARTIN 505 [place] [address] 05/10/2025 1:00 PM EDT Office Visit [facility] MEDICINE 230 [place] [address] Sariah Vickers ANP 230 [place] [address] documented as of this encounter Goals Goal [...] documented as of this encounter Care Teams Radiologist Relationship Specialty Start Date End Date Sariah Vickers ANP 230 [place] [address] PCP - General Family Medicine 09/23/19 Yuri Pierre, PharmD 230 [place] [address] Pharmacist Internal Medicine 05/05/24 02/03/25 Basilio Hall MD 596 [place] [address] Cardiology 05/17/24 01/10/25 Ron Preciado MD 5 [place] [address] Pulmonary Disease 05/17/24 Felipe Alanis MD [address] [place] [address] Cardiology 01/11/25 Rosemary Moses NP [address] [place] [address] Urology 01/11/[address] 3rd [place] [address] Gastroenterology 01/11/25 documented as of this encounter
--- OUTSIDE RECORDS SUMMARY | 2025-02-16 12:37 | XMS_ITS | Encounter Summary ---
Author Organization [employer] Address [address] [facility] 7t [place] [address] Care Team Providers Care Medical Center Representative Name Role Phone Sariah Vickers Primary Care Provider [phone] Yuri Pierre PharmD Unavailable [phone] Basilio Hall MD Unavailable [phone] Ron Preciado MD Unavailable [phone] Felipe Alanis MD Unavailable Rosemary Moses NP Unavailable May Unavailable Reason for Visit * Reason Comments Med Refill Encounter Details Date Type Department Care Team (Late st Contact Info) Description 09/13/2022 Refill [facility] [address] [place] [address] Sariah Vickers ANP 230 [place] [address] Severe persistent allergic asthma without complication Social [...] Info) Description 04/04/2025 10:00 AM EST Telemedicine [facility] 505 [place] [address] Azeb Hall, RN 505 [place] [address] 05/10/2025 1:00 PM EDT Office Visit [facility] MEDICINE 230 [place] [address] Sariah Vickers ANP 230 [place] [address] documented as of this encounter Visit Diagnoses Diagnosis Severe persistent allergic asthma without complication (HCC) documented in this encounter Care Teams Medical Center Representative Relationship Specialty Start Date End Date Sariah Vickers ANP [address] [place] [address] PCP - General Family Medicine 09/23/19 Yuri Pierre, MikeD [address] [place] [address] Pharmacist Internal Medicine 05/05/24 02/03/25 Basilio Hall MD 596 [place] [address] Cardiology 05/17/24 01/10/25 Ron Preciado MD 5 [place] [address] Pulmonary Disease 05/17/24 Felipe Alanis MD [address] 3rd [place] [address] Cardiology 01/11/25 Rosemary Moses NP [address] [place] [address] Urology 01/11/25 Jodee May [address] 3rd [place] [address] Gastroenterology 01/11/25 documented as of this encounter
--- OUTSIDE RECORDS SUMMARY | 2025-02-16 12:37 | XMS_ITS | Encounter Summary ---
Author Organization [employer] Address 75 [facility] 7t [place] [address] Care Team Providers Care Sole Rougher Name Role Phone Sariah Vickers Primary Care Provider [phone] Yuri Pierre PharmD Unavailable Basilio Hall MD Unavailable Ron Preciado MD Unavailable [phone] Felipe Alanis MD Unavailable Rosemary Moses NP Unavailable May Unavailable Reason for Visit * Reason Comments Med Refill Encounter Details Date Type Department Care Team (Late st Contact Info) Description 12/07/2024 Refill [facility] 230 [place] [address] Sariah Vickers ANP 230 [place] [address] Social History Tobacco Use Types Packs/Day Years [...] Info) Description 04/04/2025 10:00 AM EST Telemedicine [facility] 505 [place] [address] Azeb Hall, RN 505 [place] [address] 05/10/2025 1:00 PM EDT Office Visit [facility] 230 [place] [address] Sariah Vickers, ANP 230 [place] [address] documented as of this encounter Goals Goal [...] as of this encounter Care Teams Sole Rougher Relationship Specialty Start Date End Date Sariah Vickers ANP 230 [place] [address] PCP - General Family Medicine 09/23/19 Yuri Pierre, MikeD [address] [place] [address] Pharmacist Internal Medicine 05/05/24 02/03/25 Basilio Hall MD 596 [place] [address] Cardiology 05/17/24 01/10/25 Ron Preciado MD 5 [place] [address] Pulmonary Disease 05/17/24 Felipe Alanis MD [facility] 3rd [place] [address] Cardiology 01/11/25 Rosemary Moses NP [address] [place] [address] Urology 01/11/25 Jodee Umm 11 [facility] [address]rd [place] [address] Gastroenterology 01/11/25 documented as of this encounter
--- OUTSIDE RECORDS SUMMARY | 2025-02-16 12:37 | XMS_ITS | Encounter Summary ---
Author Organization [employer] Address 75 [facility] 7t [place] [address] Care Team Providers Care Immigration Associate Name Role Phone Sariah Vickers Primary Care Provider [phone] Yuri Pierre PharmD Unavailable Basilio Hall MD Unavailable Ron Preciado MD Unavailable [phone] Felipe Alanis MD Unavailable Rosemary Moses NP Unavailable May Unavailable Reason for Visit * Reason Comments Med Refill Encounter Details Date Type Department Care Team (Late st Contact Info) Description 03/03/2022 Refill [facility] 230 [place] [address] Sariah Vickers ANP 230 [place] [address] Social History Tobacco Use Types Packs/Day Years [...] [facility] 505 [place] [address] Azeb Hall RN 505 [place] [address] 05/10/2025 1:00 PM EDT Office Visit [facility] 230 [place] [address] Sariah Vickers ANP 230 [place] [address] documented as of this encounter Visit Diagnoses Not on filedocumented in this encounter Care Teams Immigration Associate Relationship Specialty Start Date End Date Sariah Vickers ANP 230 [place] [address] PCP - General Family Medicine 09/23/19 Yuri Pierre, PharmD [address] [place] [address] Pharmacist Internal Medicine 05/05/24 02/03/25 Basilio Hall MD 596 [place] [address] Cardiology 05/17/24 01/10/25 Ron Preciado MD [address] [place] [address] Pulmonary Disease 05/17/24 Felipe Alanis MD [address] 3rd [place] [address] Cardiology 01/11/25 Rosemary Moses NP [address] [place] [address] Urology 01/11/[address] 3rd [place] [address] Gastroenterology 01/11/25 documented as of this encounter
--- OUTSIDE RECORDS SUMMARY | 2025-02-16 12:37 | XMS_ITS | Encounter Summary ---
Author Organization [employer] Address 75 [facility] 7t [place] [address] Care Team Providers Care Soap Mixer Name Role Phone Sariah Vickers Primary Care Provider Yuri Pierre PharmD Unavailable Basilio Hall MD Unavailable Ron Preciado MD Unavailable [phone] Felipe Alanis MD Unavailable Rosemary Moses NP Unavailable May Unavailable Reason for Visit * Reason Comments Med Refill Encounter Details Date Type Department Care Team (Late st Contact Info) Description 10/17/2023 Refill [facility] 230 [place] [address] Sariah Vickers ANP 230 [place] [address] Neck pain Social History Tobacco Use Types [...] Info) Description 04/04/2025 10:00 AM EST Telemedicine [facility] 505 [place] [address] Azeb Hall, MARTIN 505 [place] [address] 05/10/2025 1:00 PM EDT Office Visit [facility] 230 [place] [address] Sariah Vickers ANP 230 [place] [address] documented as of this encounter Goals Goal [...] documented as of this encounter Care Teams Soap Mixer Relationship Specialty Start Date End Date Sariah Vickers ANP 230 [place] [address] PCP - General Family Medicine 09/23/19 Yuri Pierre, PharmD 230 [place] [address] Pharmacist Internal Medicine 05/05/24 02/03/25 Basilio Hall MD 596 [place] [address] Cardiology 05/17/24 01/10/25 Ron Preciado MD 5 [place] [address] Pulmonary Disease 05/17/24 Felipe Alanis MD [address]rd [place] [address] Cardiology 01/11/25 Rosemary Moses NP [address] [place] [address] Urology 01/11/[address]rd [place] [address] Gastroenterology 01/11/25 documented as of this encounter
--- OUTSIDE RECORDS SUMMARY | 2025-02-16 12:37 | XMS_ITS | Encounter Summary ---
Author Organization [employer] Address 75 [facility] 7t [place] [address] Care Team Providers Care Waste Duster Name Role Phone Sariah Vickers Primary Care Provider [phone] Yuri Pierre PharmD Unavailable Basilio Hall MD Unavailable Ron Preciado MD Unavailable [phone] Felipe Alanis MD Unavailable Rosemary Moses NP Unavailable May Unavailable Reason for Visit * Reason Comments Med Refill Encounter Details Date Type Department Care Team (Late st Contact Info) Description 10/24/2023 Refill [facility] 230 [place] [address] Sariah Vickers ANP 230 [place] [address] Neck pain Social History Tobacco Use Types [...] Info) Description 04/04/2025 10:00 AM EST Telemedicine [facility] 505 [place] [address] Azeb Hall, MARTIN 505 [place] [address] 05/10/2025 1:00 PM EDT Office Visit [facility] 230 [place] [address] Sariah Vickers ANP 230 [place] [address] documented as of this encounter Goals Goal Patient Goal Type Associated Problems Recent Progress Patient-Stated? Author Blood Pressure < 140/90 Blood Pressure 124/80(2024 11:12 AM EST) No Aida Ragland PharmBear Record Your Blood Sugar As Directed General No Aida Ragalnd PharmBear Hemoglobin A1c < 7 Result Component 6.6(11/25/202 5 12:59 PM EST) Aida Ernst PharmD documented as of this encounter Visit Diagnoses Diagnosis Neck pain Cervicalgia documented in this encounter Additional Health Concerns Assessment Noted Time PHQ-9 Depression Total Score: 12 024 2:58 PM EDT documented as of this encounter Care Teams Waste Duster Relationship Specialty Start Date End Date Sariah Vickers ANP 230 [place] [address] PCP - General Family Medicine 09/23/19 Yuri Pierre, PharmD 230 [place] [address] Pharmacist Internal Medicine 05/05/24 02/03/25 Basilio Hall MD 596 [place] [address] Cardiology 05/17/24 01/10/25 Ron Preciado MD 5 [place] [address] Pulmonary Disease 05/17/24 Felipe Alanis MD [address] [place] [address] Cardiology 01/11/25 Rosemary Moses NP [address] [place] [address] Urology 01/11/[address]rd [place] [address] Gastroenterology 01/11/25 documented as of this encounter
--- OUTSIDE RECORDS SUMMARY | 2025-02-16 12:37 | XMS_ITS | Encounter Summary ---
Author Organization [employer] Address 75 [facility] 7t [place] [address] Care Team Providers Care Payment Poster Name Role Phone Sariah Vickers Primary Care Provider [phone] Yuri Pierre PharmD Unavailable Basilio Hall MD Unavailable Ron Preciado MD Unavailable [phone] Felipe Alanis MD Unavailable [phone] Rosemary Moses NP Unavailable May Unavailable Encounter Details Date Type Department Care Team (Late st Contact Info) Description 02/05/2022 Abstract [facility] 230 [place], [place] [phone] Sariah Vickers ANP 230 [place] [address] Social History Tobacco Use Types Packs/Day Years [...] [facility] 505 [place] [address] Azeb Hall, MARTIN 505 [place] [address] 05/10/2025 1:00 PM EDT Office Visit [facility] [address] [place] [address] Sariah Vickers ANP [address] [place] [address] documented as of this encounter Visit Diagnoses Not on filedocumented in this encounter Care Teams Payment Poster Relationship Specialty Start Date End Date Sariah Vickers ANP [address] [place] [address] PCP - General Family Medicine 09/23/19 Yuri Pierre, MikeD [address] [place] [address] Pharmacist Internal Medicine 05/05/24 02/03/25 Basilio Hall MD 596 [place] [address] Cardiology 05/17/24 01/10/25 Ron Preciado MD [address] [place] [address] Pulmonary Disease 05/17/24 Felipe Alanis MD [address] [place] [address] 3rd [place] [address] Cardiology 01/11/25 Rosemary Moses NP [address] [place] [address] Urology 01/11/25 Jodee May [address] 3rd [place] [address] Gastroenterology 01/11/25 documented as of this encounter
--- OUTSIDE RECORDS SUMMARY | 2025-02-16 12:37 | XMS_ITS | Encounter Summary ---
Author Organization [employer] Address 75 [facility] 7t [place] [address] Care Team Providers Care Workers Compensation Legal Secretary Name Role Phone Sariah Vickers Primary Care Provider [phone] Ron Preciado MD Unavailable [phone] Felipe Alanis MD Unavailable Rosemary Moses NP Unavailable May Unavailable Reason for Visit * Reason Comments Med Refill Encounter Details Date Type Department Care Team (Late st Contact Info) Description 02/15/2025 Refill [facility] [address] [place] [address] Sariah Vickers ANP 230 [place] [address] Healthcare maintenance Social History Tobacco Use Types Packs/Day Years [...] Info) Description 04/04/2025 10:00 AM EST Telemedicine [facility] 505 [place] [address] Azeb Hall, MARTIN 505 [place] [address] 05/10/2025 1:00 PM EDT Office Visit [facility] 230 [place] [address] Sariah Vickers ANP 230 [place] [address] documented as of this encounter Goals Goal [...] as of this encounter Visit Diagnoses Diagnosis Healthcare maintenance documented in this encounter Additional Health Concerns [...] documented as of this encounter Care Teams Workers Compensation Legal Secretary Relationship Specialty Start Date End Date Sariah Vickers ANP [address] [place] [address] PCP - General Family Medicine 09/23/19 Ron Preciado MD 5 [place] [address] Pulmonary Disease 05/17/24 Felipe Alanis MD [address] 3rd [place] [address] Cardiology 01/11/25 Rosemary Moses NP [address] [place] [address] Urology 01/11/25 Jodee Umm [address] 3rd [place] [address] Gastroenterology 01/11/25 documented as of this encounter
--- OUTSIDE RECORDS SUMMARY | 2025-02-16 12:37 | XMS_ITS | Encounter Summary ---
Author Organization [employer] Address 75 [facility] 7t [place] [address] Care Team Providers Care Lard Refiner Name Role Phone Sariah Vickers Primary Care Provider Yuri Pierre PharmD Unavailable Basilio Hall MD Unavailable [phone] Ron Preciado MD Unavailable [phone] Felipe Alanis MD Unavailable Rosemary Moses NP Unavailable May Unavailable Reason for Visit * Reason Comments Med Refill Encounter Details Date Type Department Care Team (Late st Contact Info) Description 08/22/2023 Refill [facility] 230 [place] [address] Sariah Vickers ANP 230 [place] [address] Neck pain Social History Tobacco Use Types [...] Description 04/04/2025 10:00 AM EST Telemedicine [facility] 505 [place] [address] Azeb Hall, MARTIN 505 [place] [address] 05/10/2025 1:00 PM EDT Office Visit [facility] 230 [place] [address] Sariah Vickers ANP 230 [place] [address] documented as of this encounter Goals Goal [...] documented as of this encounter Care Teams Lard Refiner Relationship Specialty Start Date End Date Sariah Vickers ANP 230 [place] [address] PCP - General Family Medicine 09/23/19 Yuri Pierre, PharmD 230 [place] [address] Pharmacist Internal Medicine 05/05/24 02/03/25 Basilio Hall MD 596 [place] [address] Cardiology 05/17/24 01/10/25 Ron Preciado MD 5 [place] [address] Pulmonary Disease 05/17/24 Felipe Alanis MD [address]rd [place] [address] Cardiology 01/11/25 Rosemary Moses NP [address] [place] [address] Urology 01/11/[address] [place] [address] Gastroenterology 01/11/25 documented as of this encounter
--- OUTSIDE RECORDS SUMMARY | 2025-02-16 12:37 | XMS_ITS | Encounter Summary ---
Author Organization [employer] Address 75 [facility] 7t [place] [address] Care Team Providers Care College And Career Counselor Name Role Phone Sariah Vickers Primary Care Provider Yuri Pierre PharmD Unavailable [phone] Basilio Hall MD Unavailable Ron Preciado MD Unavailable [phone] Felipe Alanis MD Unavailable Rosemary Moses NP Unavailable May Unavailable Reason for Visit * Reason Comments Med Refill Encounter Details Date Type Department Care Team (Late st Contact Info) Description 10/03/[address] [facility] 230 [place] [address] Sariah Vickers ANP 230 [place] [address] Chronic SI joint pain Social History Tobacco [...] Description 04/04/2025 10:00 AM EST Telemedicine [facility] 505 [place] [address] Azeb Hall, RN 505 [place] [address] 05/10/2025 1:00 PM EDT Office Visit [facility] 230 [place] [address] Sariah Vickers ANP 230 [place] [address] documented as of this encounter Goals Goal [...] as of this encounter Care Teams College And Career Counselor Relationship Specialty Start Date End Date Sariah Vickers ANP 230 [place] [address] PCP - General Family Medicine 09/23/19 Yuri Pierre, PharmD 230 [place] [address] Pharmacist Internal Medicine 05/05/24 02/03/25 Basilio Hall MD 596 [place] [address] Cardiology 05/17/24 01/10/25 Ron Preciado MD 5 [place] [address] Pulmonary Disease 05/17/24 Felipe Alanis MD [address]rd [place] [address] Cardiology 01/11/25 Rosemary Moses NP [address] [place] [address] Urology 01/11/25May [address]rd [place] [address] Gastroenterology 01/11/25 documented as of this encounter
--- OUTSIDE RECORDS SUMMARY | 2025-02-16 12:37 | XMS_ITS | Encounter Summary ---
Author Organization [employer] Address 75 [facility] 7t [place] [address] Care Team Providers Care Dermatology Physician Name Role Phone Sariah Vickers Primary Care Provider Yuri Pierre PharmD Unavailable [phone] Basilio Hall MD Unavailable Ron Preciado MD Unavailable [phone] Felipe Alanis MD Unavailable Rosemary Moses NP Unavailable May Unavailable Reason for Visit * Reason Comments Med Refill Encounter Details Date Type Department Care Team (Late st Contact Info) Description 02/06/2022 Refill [facility] 230 [place] [address] Sariah Vickers ANP 230 [place] [address] Social History Tobacco Use Types Packs/Day Years [...] ([facility] st Contact Info) Description 04/04/2025 10:00 AM EST Telemedicine [facility] 505 [place] [address] Azeb Hall, MARTIN 505 [place] [address] 05/10/2025 1:00 PM EDT Office Visit [facility] [address] [place] [address] Sariah Vickers ANP 230 [place] [address] documented as of this encounter Visit Diagnoses Not on filedocumented in this encounter Care Teams Dermatology Physician Relationship Specialty Start Date End Date Sariah Vickers ANP [address] [place] [address] PCP - General Family Medicine 09/23/19 Yuri Pierre, MikeD [address] [place] [address] Pharmacist Internal Medicine 05/05/24 02/03/25 Basilio Hall MD 596 [place] [address] Cardiology 05/17/24 01/10/25 Ron Preciado MD 5 [place] [address] Pulmonary Disease 05/17/24 Felipe Alanis MD 11 [facility] 3rd [place] [address] Cardiology 01/11/25 Rosemary Moses NP [address] [place] [address] Urology 01/11/25 Jodee Umm [address] 3rd [place] [address] Gastroenterology 01/11/25 documented as of this encounter
--- OUTSIDE RECORDS SUMMARY | 2025-02-16 12:37 | XMS_ITS | Encounter Summary ---
Author Organization [employer] Address 75 [facility] 7t [place] [address] Care Team Providers Care Accounts Receivable Processor Name Role Phone Sariah Vickers Primary Care Provider [phone] Yuri Pierre PharmD Unavailable [phone] Basilio Hall MD Unavailable Ron Preciado MD Unavailable [phone] Felipe Alanis MD Unavailable Rosemary Moses NP Unavailable May Unavailable Reason for Visit * Reason Onset Date Comments Med Refill 02/04/2024 Encounter Details Date Type Department Care Team (Late st Contact Info) Description 02/04/2024 Telephone [facility] 230 [place] [address] Sariah Vickers ANP 230 [place] [address] Med Refill Social History Tobacco Use Types [...] 50 MG tablet To be sent to: [facility] - [place], [place] - [address] [place] [address] documented in this encounter Plan of Treatment Upcoming Encounters Date Type Department Care Team (Late st Contact Info) Description 04/04/2025 10:00 AM EST Telemedicine [facility] [address] [place] [address] Azeb Hall RN 505 [place] [address] 05/10/2025 1:00 PM EDT Office Visit [facility] 230 [place] [address] Sariah Vickers ANP 230 [place] [address] documented as of this encounter Goals Goal Patient Goal Type Associated Problems Recent Progress Patient-Stated? Author Blood Pressure < 140/90 Blood Pressure 124/80(2024 11:12 AM EST) No Phanis-Gambl Aida urbina, PharmD Record Your Blood Sugar As Directed General No Piers-Gambl eVeronicasa, PharmD Hemoglobin A1c < 7 Result Component 6.6( 12:59 PM EST) No Piers-Gambl e, Aiad, PharmD documented as of this encounter Visit Diagnoses Not on filedocumented in this encounter Additional Health Concerns Assessment Noted Time PHQ-9 Depression Total Score: 12 024 2:58 PM EDT documented as of this encounter Care Teams Accounts Receivable Processor Relationship Specialty Start Date End Date Sariah Vickers ANP 230 [place] [address] PCP - General Family Medicine 09/23/19 Yuri Pierre, MikeD 230 [place] [address] Pharmacist Internal Medicine 05/05/24 02/03/25 Basilio Hall MD 596 [place] [address] Cardiology 05/17/24 01/10/25 Ron Preciado MD 5 [place] [address] Pulmonary Disease 05/17/24 Felipe Alanis MD 11 [facility] 3rd [place] [address] Cardiology 01/11/25 Rosemary Moses NP [address] [place] [address] Urology 01/11/25 Umm [place] [address] 3rd Floor [place] [address] Gastroenterology 01/11/25 documented as of this encounter
--- OUTSIDE RECORDS SUMMARY | 2025-02-16 12:37 | XMS_ITS | Encounter Summary ---
Author Organization [employer] Address [address] [facility] [address] 7t [place] [address] Care Team Providers Care Public Safety Police Name Role Phone Sariah Vickers Primary Care Provider Yuri Pierre PharmD Unavailable Basilio Hall MD Unavailable Ron Preciado MD Unavailable [phone] Felipe Alanis MD Unavailable Rosemary Moses NP Unavailable May Unavailable Reason for Visit * Reason Comments Med Refill Patient [facility] pharmacy hasn't finished her Medbox due to missing refill for medication Gabapetin . Encounter Details Date Type Department Care Team (Late st Contact Info) Description 10/03/2023 Refill [facility] 230 [place], [place] [phone] Sariah Vickers ANP 230 [place], [place] [phone] Chronic SI joint pain Social History Tobacco [...] Info) Description 04/04/2025 10:00 AM EST Telemedicine [facility] 505 [place] [address] Azeb Hall, RN 505 [place] [address] 05/10/2025 1:00 PM EDT Office Visit [facility] 230 [place] [address] Sariah Vickers, ANP 230 [place] [address] documented as of this encounter Goals Goal [...] of this encounter Care Teams Public Safety Police Relationship Specialty Start Date End Date Sariah Vickers ANP 230 [place] [address] PCP - General Family Medicine 09/23/19 Yuri Pierre, MikeD [address] [place] [address] Pharmacist Internal Medicine 05/05/24 02/03/25 Basilio Hall MD 596 [place] [address] Cardiology 05/17/24 01/10/25 Ron Preciado MD 5 [place] [address] Pulmonary Disease 05/17/24 Felipe Alanis MD [address] 3rd [place] [address] Cardiology 01/11/25 Rosemary Moses NP [address] [place] [address] Urology 01/11/[address] [place] [address] 3rd [place] [address] Gastroenterology 01/11/25 documented as of this encounter
--- OUTSIDE RECORDS SUMMARY | 2025-02-16 12:37 | XMS_ITS | Encounter Summary ---
Author Organization [employer] Address 75 [facility] 7t [place] [address] Care Team Providers Care Natural Gas Plant Supervisor Name Role Phone Sariah Vickers Primary Care Provider Yuri Pierre PharmD Unavailable [phone] Basilio Hall MD Unavailable Ron Preciado MD Unavailable [phone] Felipe Alanis MD Unavailable Rosemary Moses NP Unavailable EllsworthMay Unavailable Encounter Details Date Type Department Care Team (Latest Contact Info) Description 04/14/2020 Abstract [facility] CONVERSIONS Dental, Provider, [...] Description 04/04/2025 10:00 AM EST Telemedicine [facility] 505 [place], [place] [phone] Azeb Hall, MARTIN 505 [place], [place] [phone] 05/10/2025 1:00 PM EDT Office Visit [facility] MED[facility] 230 [place], [place] [phone] Sariah Vickers ANP 230 [place] [address] documented as of this encounter Visit Diagnoses Not on filedocumented in this encounter Care Teams Natural Gas Plant Supervisor Relationship Specialty Start Date End Date Sariah Vickers ANP 230 [place] [address] PCP - General Family Medicine 09/23/19 Yuri Pierre, PharmD 230 [place] [address] Pharmacist Internal Medicine 05/05/24 02/03/25 Basilio Hall MD 596 [place] [address] Cardiology 05/17/24 01/10/25 Ron Preciado MD 5 [place] [address] Pulmonary Disease 05/17/24 Felipe Alanis MD [address]rd [place] [address] Cardiology 01/11/25 Rosemary Moses NP [address] [place] [address] Urology 01/11/[address] 3rd [place] [address] Gastroenterology 01/11/25 documented as of this encounter
--- OUTSIDE RECORDS SUMMARY | 2025-02-16 12:37 | XMS_ITS | Encounter Summary ---
Author Organization [employer] Address 75 [facility] 7t [place] [address] Care Team Providers Care Registered Radiographer Name Role Phone Sariah Vickers Primary Care Provider [phone] Yuri Pierre PharmD Unavailable Basilio Hall MD Unavailable [phone] Ron Preciado MD Unavailable [phone] Felipe Alanis MD Unavailable Rosemary Moses [...] Info) Description 04/04/2025 10:00 AM EST Telemedicine [facility] CHC MED & PEDS [address] [place], [place] [phone] Azeb Hall, MARTIN 505 [place], [place] [phone] 05/10/2025 1:00 PM EDT Office Visit [facility] MEDICINE [address] [place], [place] [phone] Sariah Vickers ANP 230 [place] [address] documented as of this encounter Visit Diagnoses Not on filedocumented in this encounter Care Teams Registered Radiographer Relationship Specialty Start Date End Date Sariah Vickers ANP 230 [place] [address] PCP - General Family Medicine 09/23/19 Yuri Pierre, PharmD 230 [place] [address] Pharmacist Internal Medicine 05/05/24 02/03/25 Basilio Hall MD 596 [place] [address] Cardiology 05/17/24 01/10/25 Ron Preciado MD 5 [place] [address] Pulmonary Disease 05/17/24 Felipe Alanis MD [address] [place] [address] Cardiology 01/11/25 Rosemary Moses NP [address] [place] [address] Urology 01/11/[address] 3rd [place] [address] Gastroenterology 01/11/25 documented as of this encounter
--- OUTSIDE RECORDS SUMMARY | 2025-02-16 12:37 | XMS_ITS | Encounter Summary ---
Author Organization [employer] Address 75 [facility] 7t [place] [address] Care Team Providers Care It Engineer Name Role Phone Sariah Vickers Primary Care Provider [phone] Ron Preciado MD Unavailable [phone] Felipe Alanis MD Unavailable Rosemary Moses NP Unavailable May Unavailable Reason for Visit * Reason Comments Med Refill Encounter Details Date Type Department Care Team (Late st Contact Info) Description 02/16/2025 Refill [facility] WALK-IN CENTER [address] [place], [place] [phone] Sariah Vickers ANP 230 [place] [address] Neck pain Social History Tobacco Use Types [...] Info) Description 04/04/2025 10:00 AM EST Telemedicine [facility] CHC MED & PEDS [address] [place] [address] Azeb Hall, MARTIN 505 [place] [address] 05/10/2025 1:00 PM EDT Office Visit [facility] MEDICINE 230 [place] [address] Sariah Vickers ANP 230 [place] [address] documented as of this encounter Goals Goal [...] documented as of this encounter Care Teams It Engineer Relationship Specialty Start Date End Date Sairah Vickers ANP [address] [place] [address] PCP - General Family Medicine 09/23/19 Ron Preciado MD 5 [place] [address] Pulmonary Disease 05/17/24 Felipe Alanis MD [address] [place] [address] Cardiology 01/11/25 Rosemary Moses NP [address] [place] [address] Urology 01/11/25 [address] 3rd [place] [address] Gastroenterology 01/11/25 documented as of this encounter
--- OUTSIDE RECORDS SUMMARY | 2025-02-16 12:37 | XMS_ITS | Encounter Summary ---
Author Organization [employer] Address 75 [facility] 7t [place] [address] Care Team Providers Care Education And Training Manager Name Role Phone Sariah Vickers Primary Care Provider Yuri Pierre PharmD Unavailable [phone] Basilio Hall MD Unavailable [phone] Ron Preciado MD Unavailable [phone] Felipe Alanis MD Unavailable [phone] Rosemary Moses NP Unavailable May Unavailable Reason for Visit * Reason Comments Med Refill Encounter Details Date Type Department Care Team (Late st Contact Info) Description 12/12/2024 Refill [facility] CHC MED & PEDS [address] [place] [address] Sariah Vickers ANP 230 [place] [address] Cervicalgia Social History Tobacco Use Types Packs/Day [...] [facility] CHC MED & PEDS 505 [place] [address] Azeb Hall, RN 505 [place] [address] 05/10/2025 1:00 PM EDT Office Visit [facility] MEDICINE 230 [place] [address] Sariah Vickers ANP 230 [place] [address] documented as of this encounter Goals Goal [...] documented as of this encounter Care Teams Education And Training Manager Relationship Specialty Start Date End Date Sariah Vickers ANP 230 [place] [address] PCP - General Family Medicine 09/23/19 Yuri Pierre, MikeD [address] [place] [address] Pharmacist Internal Medicine 05/05/24 02/03/25 Basilio Hall MD 596 [place] [address] Cardiology 05/17/24 01/10/25 Ron Preciado MD 5 [place] [address] Pulmonary Disease 05/17/24 Felipe Alanis MD 11 [facility] 3rd [place] [address] Cardiology 01/11/25 Rosemary Moses NP [address] [place] [address] Urology 01/11/25 JodeeMay 11 [facility] 3rd [place] [address] Gastroenterology 01/11/25 documented as of this encounter
--- OUTSIDE RECORDS SUMMARY | 2025-02-16 12:37 | XMS_ITS | Encounter Summary ---
Author Organization [employer] Address 75 [facility] 7t [place] [address] Care Team Providers Care Impregnating Helper Name Role Phone Sariah Vickers Primary Care Provider [phone] Yuri Pierre PharmD Unavailable [phone] Basilio Hlal MD Unavailable Ron Preciado MD Unavailable [phone] Felipe Alanis MD Unavailable [phone] Rosemary Moses NP Unavailable May Unavailable Reason for Visit * Reason Comments Med Refill Encounter Details Date Type Department Care Team (Late st Contact Info) Description 03/09/2024 Refill [facility] CHC MED & PEDS [address] [place] [address] Sariah Vickers ANP 230 [place] [address] Neck pain Social History Tobacco Use Types [...] [facility] 505 [place] [address] Azeb Hall, RN 505 [place] [address] 05/10/2025 1:00 PM EDT Office Visit [facility] MEDICINE 230 [place] [address] Sariah Vickers ANP [address] [place] [address] documented as of this encounter Goals Goal [...] documented as of this encounter Care Teams Impregnating Helper Relationship Specialty Start Date End Date Sariah Vickers ANP 230 [place] [address] PCP - General Family Medicine 09/23/19 Yuri Pierre, PharmD 230 [place] [address] Pharmacist Internal Medicine 05/05/24 02/03/25 Basilio Hall MD 596 [place] [address] Cardiology 05/17/24 01/10/25 Ron Preciado MD 5 [place] [address] Pulmonary Disease 05/17/24 Felipe Alanis MD [address] [place] [address] Cardiology 01/11/25 Rosemary Moses NP [address] [place] [address] Urology 01/11/[address] 3rd [place] [address] Gastroenterology 01/11/25 documented as of this encounter
--- OUTSIDE RECORDS SUMMARY | 2025-02-16 12:37 | XMS_ITS | Encounter Summary ---
Author Organization [employer] Address 75 [facility] 7t [place] [address] Care Team Providers Care Log Haul Chain Feeder Name Role Phone Sariah Vickers KAYLEE Primary Care Provider [phone] Yuri Pierre PharmD Unavailable [phone] Basilio Hall MD Unavailable Ron Preciado MD Unavailable [phone] Felipe Alanis MD Unavailable Rosemary Moses NP Unavailable EllsworthMay Unavailable Encounter Details Date Type Department Care Team (Late st Contact Info) Description 01/09/2022 Abstract [facility] ADULT DENTAL 230 [place] [address] Dental, Provider, DDS Social History Tobacco Use [...] Description 04/04/2025 10:00 AM EST Telemedicine [facility] CHC MED & PEDS 505 [place] [address] Azeb Hall, RN 505 [place] [address] 05/10/2025 1:00 PM EDT Office Visit [facility] MEDICINE 230 [place] [address] Sariah Vickers ANP 230 [place] [address] documented as of this encounter Procedures Procedure [...] filedocumented in this encounter Care Teams Log Haul Chain Feeder Relationship Specialty Start Date End Date Sariah Vickers ANP 230 [place] [address] PCP - General Family Medicine 09/23/19 Yuri Pierre, MikeD 230 [place] [address] Pharmacist Internal Medicine 05/05/24 02/03/25 Basilio Hall MD 596 [place] [address] Cardiology 05/17/24 01/10/25 Ron Preciado MD 5 [place] [address] Pulmonary Disease 05/17/24 Felipe Alanis MD [address] 3rd [place] [address] Cardiology 01/11/25 Rosemary Moses NP [address] [place] [address] Urology 01/11/25 Umm Ellsworth [address] 3rd [place] [address] Gastroenterology 01/11/25 documented as of this encounter
--- OUTSIDE RECORDS SUMMARY | 2025-02-16 12:37 | XMS_ITS | Encounter Summary ---
Author Organization [employer] Address 75 [facility] 7t [place] [address] Care Team Providers Care Business Practices Officer Name Role Phone Sariah Vickers Primary Care Provider Yuri Pierre PharmD Unavailable Basilio Hall MD Unavailable [phone] Ron Preciado MD Unavailable [phone] Felipe Alanis MD Unavailable Rosemary Moses NP Unavailable May Unavailable Reason for Visit * Reason Comments Med Refill Encounter Details Date Type Department Care Team (Late st Contact Info) Description 10/03/2023 Refill [facility] WALK-IN CENTER 230 [place] [address] Sariah Vickers ANP 230 [place] [address] Chronic SI joint pain Social History Tobacco [...] [facility] 505 [place] [address] Azeb Hall, RN 505 [place] [address] 05/10/2025 1:00 PM EDT Office Visit [facility] MEDICINE 230 [place] [address] Sariah Vickers ANP [address] [place] [address] documented as of this encounter Goals Goal [...] as of this encounter Care Teams Business Practices Officer Relationship Specialty Start Date End Date Sariah Vickers ANP 230 [place] [address] PCP - General Family Medicine 09/23/19 Yuri Pierre, PharmD 230 [place] [address] Pharmacist Internal Medicine 05/05/24 02/03/25 Basilio Hall MD 596 [place] [address] Cardiology 05/17/24 01/10/25 Ron Preciado MD 5 [place] [address] Pulmonary Disease 05/17/24 Felipe Alanis MD [address] [place] [address] Cardiology 01/11/25 Rosemary Moses NP [address] [place] [address] Urology 01/11/25May [address] [place] [address] Gastroenterology 01/11/25 documented as of this encounter
--- OUTSIDE RECORDS SUMMARY | 2025-02-16 12:37 | XMS_ITS | Encounter Summary ---
Author Organization [employer] Address 75 [facility] 7t [place] [address] Care Team Providers Care Client Delivery Manager Name Role Phone Sariah Vickers Primary Care Provider Yuri Pierre PharmD Unavailable Basilio Hall MD Unavailable Ron Preciado MD Unavailable [phone] Felipe Alanis MD Unavailable Rosemary Moses NP Unavailable May Unavailable Reason for Visit * Reason Onset Date Comments Nurse Triage 11/01/2022 Encounter Details Date Type Department Care Team (Late st Contact Info) Description 11/01/[address] [facility] MEDICINE 230 [place] [address] Sariah Vickers ANP 230 [place] [address] Nurse Triage Social History Tobacco Use Types [...] 11/01/2022 3:51 PM EDT Triage call with [employer] [place] [id number] Pt reports blood sugars have been high [...] Description 04/04/2025 10:[address] [facility] CHC MED & PEDS 505 [place] [address] Azeb Hall, MARTIN 505 [place] [address] 05/10/2025 1:00 PM EDT Office Visit [facility] MEDICINE [address] [place] [address] Sariah Vickers ANP 230 [place] [address] documented as of this encounter Goals Goal [...] filedocumented in this encounter Care Teams Client Delivery Manager Relationship Specialty Start Date End Date Sariah Vickers ANP [address] [place] [address] PCP - General Family Medicine 09/23/19 Yuri Pierre, PharmD [address] [place] [address] Pharmacist Internal Medicine 05/05/24 02/03/25 Basilio Hall MD 5[address] [place] [address] Cardiology 05/17/24 01/10/25 Ron Preciado MD 5 [place] [address] Pulmonary Disease 05/17/24 Felipe Alanis MD 11 [facility] 3rd [place] [address] Cardiology 01/11/25 Rosemary Moses NP [address] [place] [address] Urology 01/11/25 Umm Ellsworth [address] [place] [address] Gastroenterology 01/11/25 documented as of this encounter
--- OUTSIDE RECORDS SUMMARY | 2025-02-16 12:37 | XMS_ITS | Encounter Summary ---
Author Organization [employer] Address 75 [facility] 7t [place] [address] Care Team Providers Care In Flight Refueling Manager Name Role Phone Sariah Vickers Primary Care Provider Yuri Pierre PharmD Unavailable [phone] Basilio Hall MD Unavailable Ron Preciado MD Unavailable [phone] Felipe Alanis MD Unavailable Rosemary Moses NP Unavailable May Unavailable Encounter Details Date Type Department Care Team (Late st Contact Info) Description 11/23/2024 Orders Only [facility] MEDICINE 230 [place], [place] [phone] Sariah Vickers ANP [address] [place] [address] Social History Tobacco Use Types Packs/Day Years [...] the past 12 months, has t he [employer], gas, oil or water [employer] threatened to shut off services in your [...] Description 04/04/2025 10:00 AM EST Telemedicine [facility] CHC MED & PEDS 505 [place] [address] Azeb Hall, RN 505 [place] [address] 05/10/2025 1:00 PM EDT Office Visit [facility] MEDICINE 230 [place] [address] Sariah Vickers ANP [address] [place] [address] documented as of this encounter Goals Goal [...] this encounter Care Teams In Flight Refueling Manager Relationship Specialty Start Date End Date Sariah Vickers ANP [address] [place] [address] PCP - General Family Medicine 09/23/19 Yuri Pierre, MikeD [address] [place] [address] Pharmacist Internal Medicine 05/05/24 02/03/25 Basilio Hall MD 596 [place] [address] Cardiology 05/17/24 01/10/25 Ron Preciado MD 5 [place] [address] Pulmonary Disease 05/17/24 Felipe Alanis MD 11 [facility] 3rd [place] [address] Cardiology 01/11/25 Rosemary Moses NP [address] [place] [address] Urology 01/11/25 Jodee Umm 11 [facility] 3rd [place] [address] Gastroenterology 01/11/25 documented as of this encounter
--- OUTSIDE RECORDS SUMMARY | 2025-02-16 12:37 | XMS_ITS | Encounter Summary ---
Author Organization [employer] Address 75 [facility] 7t [place] [address] Care Team Providers Care Yarder Operator Name Role Phone Sariah Vickers Primary Care Provider [phone] Yuri Pierre PharmD Unavailable Basilio Hall MD Unavailable [phone] Ron Preciado MD Unavailable [phone] Felipe Alanis MD Unavailable Rosemary Moses NP Unavailable May Unavailable Reason for Visit * Reason Comments Med Refill Encounter Details Date Type Department Care Team (Late st Contact Info) Description 12/02/2024 Refill [facility] CHC MED & PEDS [address] [place], [place] [phone] Sariah Vickers ANP 230 [place] [address] Type 2 diabetes mellitus with diabetic neuropathy, [...] [facility] 505 [place] [address] Azeb Hall, MARTIN 505 [place] [address] 05/10/2025 1:00 PM EDT Office Visit [facility] MEDICINE 230 [place] [address] Sariah Vickers ANP 230 [place] [address] documented as of this encounter Goals Goal [...] Date Sariah Vickers ANP 230 [place] [address] PCP - General Family Medicine 09/23/19 Yuri Pierre, MikeD [address] [place] [address] Pharmacist Internal Medicine 05/05/24 02/03/25 Basilio Hall MD 596 [place] [address] Cardiology 05/17/24 01/10/25 Ron Preciado MD 5 [place] [address] Pulmonary Disease 05/17/24 Felipe Alanis MD [address] [place] [address] Cardiology 01/11/25 Rosemary Moses NP [address] [place] [address] Urology 01/11/25 Jodee Umm 11 [facility] 3rd [place] [address] Gastroenterology 01/11/25 documented as of this encounter
--- OUTSIDE RECORDS SUMMARY | 2025-02-16 12:38 | XMS_ITS | Clinical Summary ---
Author Organization [employer] Address [address] [facility] [address] [place] [address] Care Team Providers Care Flight Paramedic Name Role Phone Anthony Ruiz KAYLEE Primary Care Provider [phone] Ron Preciado MD Unavailable [phone] Felipe Alanis MD Unavailable Rosemary Moses [employer] SALES ASSOCIATE Unavailable May Unavailable Allergies Active Allergy Reactions Criticality Noted [...] the morning. Active Lactobacillus-In ulin ([facility] Game Nation [facility]) capsule 023 Active Xolair 150 [...] during the day. 025 Active Continuous Glucose Steam Plant Operator (FreeStyle Jalil 3 [place]) device 1 each Once per day. Use [...] eye(s) 2 times daily. 10 mL 5 02/09/20 25 12:24 PM EST Active insulin lispro (HumaLOG KWIKPEN) 100 UNIT/ML [...] mouth Once per day. 30 tablet 11 2025 Active TRUEplus Lancets 33G miscIndications: Type 2 diabetes mellitus with hyperglycemia (HCC) TEST BLOOD SUGAR FOUR TIMES DAILY 200 each 5 Active Fluticasone-Salm eterol 250-50 MCG/ACT aerosol powderIndication s:Severe persistent asthma without complication (HCC) INHALE 1 PUFF BY MOUTH TWICE DAILY, RINSE MOUTH AFTER USING. 60 each 5 Active fluticasone (Flonase) 50 MCG/ACT nasal spray INSTILL 2 SPRAYS IN EACH NOSTRIL ONCE DAILY IN THE MORNING 16 g 3 02/09/20 25 12:24 PM EST Active potassium chloride CR (Klor-Con [...] PATIENT DOES NOT RESPOND. 2 each Active Diclofenac Sodium 1 % gelIndications:C hronic bilateral low back pain, unspecified whether sciatica present APPLY 2 GRAMS TOPICALLY TO AFFECTED AREA(S) ONCE DAILY NEEDED FOR PAIN 100 g 1 Active TRUEplus Glucose 4 g chewable tabletIndication s:Type 2 diabetes mellitus with hyperlipidemia (HCC) CHEW 4 TABLETS NEEDED FOR low blood sugar (LESS THAN 70mg/dL) 50 tablet 12 02/17/20 25 10:18 AM EST Active semaglutide (Ozempic) 2 MG/1.5ML solution pen-injectorIndi cations:Type 2 diabetes mellitus with hyperlipidemia (HCC) Inject 0.25 mg under the skin 1 (one) time per week. 1 each Active Continuous Glucose Sensor (Pro Hoop Strengthcom G7 Sensor) miscIndications: Type 2 diabetes mellitus [...] MOUTH EVERY EVENING 90 tablet 1 Active Embecta Pen Needle Lorna 32G X 4 MM miscIndications: Type 2 diabetes mellitus with hyperlipidemia (HCC) USE DIRECTED THREE TIMES DAILY 100 each 5 01/12/20 25 1:38 PM EST 11/24/2 025 Active enalapril (Vasotec) 20 MG tabletIndication s:Essential hypertension TAKE 1 TABLET BY MOUTH EVERY MORNING 30 tablet 1 025 Active bacitracin-polym yxin b (Polysporin) ointment Apply topically 2 times daily. Apply to affected area daily 30 g 01/20/20 25 5:01 PM EST 025 Active Continuous Glucose Steam Plant Operator (Dexcom G7 Steam Plant Operator) deviceIndication s:Type 2 diabetes mellitus with hyperlipidemia (HCC) USE DIRECTED TO TEST BLOOD SUGAR EVERY DAY 1 each 025 Active Glutose 15 40 % gel oral gel TAKE 15 GRAMS BY MOUTH DAILY NEEDED FOR LOW BLOOD SUGAR DIRECTED 112.5 g 2 02/17/20 25 10:18 AM EST 025 Active acetaminophen (Tylenol) 325 MG tabletIndication s:Neck pain TAKE 1 TO 2 TABLETS BY MOUTH EVERY 6 HOURS NEEDED 120 tablet 02/10/20 25 12:32 PM EST 025 Active traMADol (Ultram) 50 MG tabletIndication s:Cervicalgia Take 1 tablet (50 mg) by mouth every 12 (twelve) hours if needed for severe pain. Do not start before February 15, 2025. 60 tablet 02/17/20 25 10:18 AM EST 025 Active Multiple Vitamins-Mineral s (CertaVite/Antio xidants) tabletIndication s:Healthcare maintenance TAKE 1 TABLET BY MOUTH EVERY MORNING 90 tablet 3 025 Active ipratropium-albu terol (Duo-Neb) 0.5-2.5 mg/3 mL nebulizer solutionIndicati ons:Severe persistent asthma without complication (HCC) INHALE 1 AMPULE USING A NEBULIZER EVERY 6 HOURS NEEDED 90 mL 5 025 Active Multiple Vitamins-Mineral s (CertaVite/Antio xidants) tabletIndication s:Healthcare maintenance TAKE 1 TABLET BY MOUTH EVERY MORNING 90 tablet 3 024 2024 Discontinued ipratropium-albu terol (Duo-Neb) 0.5-2.5 mg/3 mL nebulizer solutionIndicati ons:Severe persistent asthma without complication (HCC) INHALE 1 AMPULE USING A NEBULIZER EVERY 6 HOURS NEEDED 90 mL 5 01/12/20 25 1:38 PM EST 10/17/2 025 2024 Discontinued acetaminophen (Tylenol) 325 MG tabletIndication s:Neck pain TAKE 1 TO 2 TABLETS BY MOUTH EVERY 6 HOURS NEEDED 120 tablet 025 2024 Discontinued(R eorder (will not trigger notification to Pharmacy)) Continuous Glucose Steam Plant Operator (Dexcom G7 Steam Plant Operator) deviceIndication s:Type 2 diabetes mellitus with hyperlipidemia (HCC) 1 each Once per day for 1 day. 1 each 01/06/20 12:10 PM EST 025 2024 Discontinued Glutose 15 40 % gel oral gel TAKE 15 GRAMS BY MOUTH ONCE DAILY NEEDED FOR LOW BLOOD SUGAR 112.5 g 2 02/02/20 1:42 PM EST 2024 Discontinued traMADol (Ultram) 50 MG tabletIndication s:Cervicalgia TAKE 1 TABLET BY MOUTH EVERY TWELVE HOURS NEEDED FOR SEVERE PAIN 60 tablet 01/18/20 9:48 AM EST 025 2024 Discontinued acetaminophen (Tylenol) 325 MG tabletIndication s:Neck pain TAKE 1 TO 2 TABLETS BY MOUTH EVERY 6 HOURS NEEDED 120 tablet 01/20/20 25 5:01 PM EST 025 2024 Discontinued sulfamethoxazole -trimethoprim (Bactrim DS) 800-160 MG tablet Take 1 tablet by mouth 2 times daily for 7 days. 14 tablet 01/20/20 5:01 PM EST 025 2024 Active Problems Problem Noted Date Diagnosed Date Vaginal bleeding 11/03/2024 Assessment & Plan (11/03/2024 12:59 PM EDT): Post menopausal bleeding in patient s/p hysterectomy X 1 episode On exam, source of bleeding most likely ectactic enlarged blood vessel of inner L labia Continue to monitor Apply Vaseline to area twice daily to seal bleeding vessel Will refer to videotape operator for followup if needed Return precautions for [...] currently connected with MH services through [facility]. Pt needing additional support due to [...] family. She will continue services with [facility] for OP therapy and psychiatry services. clinician will be available if needed during next medical appointment. PLAN: (check all that apply) Continue with current services (defined as services in the past 12 months) . Pt is engaged with OP therapy and psychiatry services with [facility] @ [facility] Excessive [...] family. She will continue services with [facility] for OP therapy and psychiatry services. clinician will be available if needed during next medical appointment. PLAN: (check all that apply) Continue with current services (defined as services in the past 12 months) . Pt is engaged with OP therapy and psychiatry services with [facility] @ [facility] Fibromyalgia 07/31/2022 Asthma-COPD overlap syndrome (CMS/HCC) [...] possible plantar fasciitis -referred today to security escort x ongoing discomfort -may need orthopedic shoes [...] individual therapy and psychiatry with [facility] at [facility]. Sees psych provider every two months and therapist bi-weekly. Pt will reach out to clinician as needed. Assessment & Plan (04/10/2023 11:08 AM EST): PLAN: (check all that apply) Behavioral Health Integration Plan Patient Self Plan Patient to reach out to [facility] team as needed Assessment & [...] healthy manner PLAN: 1. Follow up with [facility]: Not recommended for follow-up 2. Patient goal is: reduce anxiousness 3. Behavioral Recommendations a. Patient will comply with medication b. Patient may request to speak with a [facility] during next PCP visit, if needed Chronic [...] 10/29/2022 Acute asthma exacerbation 07/31/2022 COPD exacerbation ([facility]) 07/31/2022 05/17/2024 Assessment & Plan (10/27/2023 [...] organization. Date Type Department Care Team Description 02/16/2025 Refill [facility] [address] [place] [phone] Anthony Ruiz ANP Neck pain 02/15/2025 Refill [facility] [address] [place] [phone] Jess Coyne MD Severe persistent asthma without complication (HCC) 02/15/2025 Refill [facility] [address] [place] [address] Anthony Ruiz ANP Healthcare maintenance 02/09/2025 Refill [facility] [address] [place] [address] Anthony Ruiz ANP Cervicalgia 02/08/2025 Refill [facility] [address] [place] [phone] Chava Presley MD Neck pain 02/03/2025 Travel 02/01/2025 Telephone [facility] [address] [place] [address] [phone] Anthony Ruiz ANP april02/01/2025 Refill [facility] [address] [place] [phone] Anthony Ruiz ANP 01/24/2025 Refill [facility] [address] [place] [address] [phone] Samantha Kumar DO Type 2 diabetes mellitus with hyperlipidemia (CMS/HCC) 01/19/2025 2:40 PM EST Office Visit [facility] [address] [place] [phone] Chava Presley MD Cutaneous abscess of right lower extremity (Primary Dx); Pharyngitis, unspecified etiology; Neck pain 01/19/2025 Orders Only [facility] [address] [place] [phone] Chava Presley MD 01/19/2025 Travel 01/16/2025 Refill [facility] [address] [place] [phone] Anthony Ruiz ANP Essential hypertension 01/12/2025 Refill [facility] [address] [place] [address] Anthony Ruiz ANP Cervicalgia 01/11/2025 1:00 PM EST Office Visit [address] [address] Anthony Ruiz ANP Type 2 diabetes mellitus with hyperlipidemia (HCC) (Primary Dx); Hypothyroidism, unspecified type; Elevated antinuclear antibody (REX) level; Transaminitis; Mixed anxiety and depressive disorder; Moderate episode of recurrent major depressive disorder (CMS/HCC) (HCC) 01/11/2025 Travel 01/09/2025 Refill [facility] [address] [place] [phone] Anthony Ruiz ANP Type 2 diabetes mellitus with hyperlipidemia (CMS/HCC) 01/07/2025 9:30 AM EST Clinical Support [address] [address] Azeb Hall, MARTIN Long-term current use of opiate analgesic (Primary Dx) 01/07/2025 Travel 01/05/2025 Refill [facility] [address] [place] [phone] Anthony Ruiz ANP 12/27/2024 Travel 12/21/2024 Refill [facility] [address] [place] [phone] Anthony Ruiz ANP 12/20/2024 Telephone [facility] [address] [place] [phone] Anthony Ruiz ANP ER Follow-up 12/20/2024 Refill [facility] [address] [place] [phone] Anthony Ruiz ANP Chronic SI joint pain 12/18/2024 Orders Only GENERIC EXTERNAL DATA DEPARTMENT Provider, Generic External Data 12/17/[address] [address] Anthony Ruiz ANP Chronic SI joint pain 12/16/2024 2:20 PM EDT Office Visit [facility] [address] [place] [address] [address] Samantha Kumar DO Type 2 diabetes mellitus with hyperlipidemia (CMS/HCC) (Primary Dx) 12/16/2024 Telephone [facility] [address] [place] [phone] Brittney Nava MD Triage 12/16/2024 Travel 12/15/2024 Orders Only [facility] External Provider, [facility] 12/15/2024 Telephone [facility] [address] [place] [address] Anthony Ruiz ANP Med Refill 12/13/2024 Refill [facility] [address] [place] [address] Anthony Ruiz ANP Neck pain; Cervicalgia 12/12/2024 Refill [facility] [address] [place] [address] Anthony Ruiz ANP Cervicalgia 12/10/2024 Refill [facility] [address] [place] [phone] Anthony Ruiz ANP Type 2 diabetes mellitus with hyperlipidemia (HCC) 12/09/2024 Telephone [facility] [address] [place] [phone] Anthony Ruiz ANP Results 12/08/2024 Orders Only GENERIC EXTERNAL DATA DEPARTMENT Provider, Generic External Data 12/07/2024 Refill [facility] [address] [place] [phone] Anthony Ruiz ANP 12/03/2024 10:20 AM EDT Office Visit [facility] [address] [place] [address] [address] Jess Coyne MD Acute bronchitis, unspecified organism (Primary Dx); Severe persistent asthma without complication (HCC) 12/02/2024 Refill [facility] [address] [place] [address] Anthony Ruiz ANP Type 2 diabetes mellitus with diabetic neuropathy, with long-term current use of insulin ([facility]) 12/01/2024 Refill [facility] [address] [place] [address] Debra Faye MD Chronic bilateral low back pain, unspecified whether sciatica present 11/24/2024 Refill [facility] [address] [place] [phone] Anthony Ruiz ANP Essential hypertension; Severe persistent asthma without complication (HCC) 11/23/2024 Orders Only [facility] [address] [place] [phone] Anthony Ruiz ANP 11/19/2024 Refill [facility] [address] [place] [phone] Chava Presley MD 11/16/2024 Refill [facility] [address] [place] [address] Anthony Ruiz ANP Type 2 diabetes mellitus with diabetic neuropathy, with long-term current use of insulin ([facility]) from Last 3 Months Immunizations Immunization [...] [facility] [address] [place] [address] Azeb Hall, MARTIN [address] [place] [address] 05/10/2025 1:00 PM EDT Office Visit [facility] [address] [place] [address] Anthony Ruiz, KAYLEE [address] [place] [address] Health Maintenance Due Date Last Done Comments [...] Blood Sugar As Directed General No Aida Corona, Dileep Hemoglobin A1c < 7 Result Component 6.6( 12:59 PM EST) No Aida Corona, Dileep [...] Plan Patient has chronic kidney disease No Liuza Meade [place] Weekly blood pressure task Care [...] diabetes mellitus with hyperlipidemia (HCC) POCT GLUCOSE (CPT-26080) Routine 01/11/2025 12:58 PM EST Type 2 [...] Routine 12/18/2024 12:00 AM EDT POCT GLUCOSE (CPT-45514) Routine 12/16/2024 2:44 PM EDT Type 2 diabetes mellitus with hyperlipidemia (CMS/HCC) POCT GLUCOSE (CPT-58142) Routine 12/16/2024 1:06 PM EDT Type 2 [...] proceed: Yes Instructions and paperwork completed: Yes [place] protocol: Procedure explained and questions answered to [...] A manually resulted (01/19/2025 4:27 PM EST) [facility] Rapid Influenza A Ag Negative Negative, Indeterminate QC Media Lot # [id number] Lot# Expiration Date 111,126 Swab Nasopharyngeal structure / Unknown 01/19/2025 4:27 PM EST us Chava Presley MD POINT OF CARE TEST ENTER/EDIT OR DERABLES Final Result * POCT Influenza B manually resulted (01/19/2025 4:26 PM EST) [facility] Rapid Influenza B Ag Negative Negative, Indeterminate QC Media Lot # [id number] Lot# Expiration Date 111,126 Swab 01/19/2025 4:26 PM EST us Chava Presley MD POINT OF CARE TEST ENTER/EDIT OR DERABLES Final Result * POCT rapid strep A manually resulted (01/19/2025 4:26 PM EST) [facility] Rapid Strep A Screen Negative Negative, None Detected QC Media Lot # [id number] Lot# Expiration Date 32,727 Swab 01/19/2025 4:26 PM EST Result Harjinder Presley MD POINT OF CARE TEST ENTER/EDIT OR DERABLES Final Result * Gram Stain Result (01/19/2025 4:25 PM EST) 01/19/2025 4:25 PM EST 01/20/2025 12:26 PM EST Comment:Leg Rt Narrative [facility] - 01/22/2025 10:26 AM EST [...] MD HISTORICAL/NON ORDERABLE LABS Fi nal Result Performing Organization Address City/State/[facility] Co de Phone Number [facility] [address] [place] [phone] * POCT Rapid COVID Ag (01/19/2025 4:25 PM EST) Rapid COVID Ag Negative QC Media Lot # [id number] Lot# Expiration Date [id number] Swab 01/19/2025 4:25 PM EST us Chava Presley MD POINT OF CARE TEST ENTER/EDIT OR DERABLES Final Result * (ABNORMAL) POCT Hgb A1c (01/11/2025 12:59 PM EST) Hemoglobin A1C 6.6(A) 4.0 - 5.7 % QC Media Lot # [id number] Lot# Expiration Date [id number] Blood 01/11/2025 12:5 9 PM EST Anthony [...] - 01/07/2025 9:33 AM EST .UTOX cup Lot#[id number] Exp. 01/17/26 Internal Pass Control us Anthony PAGE POINT OF CARE TEST ENTER/EDIT OR DERABLES Final Result * CT Abdomen Pelvis w/ Contrast (12/18/2024 9:02 AM EDT) Anatomical Region Laterality Modality Body, Pelvis, Abdomen Computed T omography 12/18/2024 9:02 AM EDT Narrative 12/18/2024 9:03 AM EDT [address] [address] [address] Scan Report Signed Patient: Nuvia Fay MR #: [id number] : 1960 Acct:[id number] Age/Sex: 64 / F ADM Date: 12/18/24 Loc: HO.ED Attending Dr: Ordering Physician: Kourtney Jones MD Date of Service: 12/18/24 Procedure(s): CT abdomen pelvis w IV con Accession Number(s): [id number] cc: Kourtney Jones MD; ANTHONY RUIZ NP Report Number: [id number]: Total DLP = 609.00 mGy-cm Reason for [...] in OV> 12/18/24901 DD/ 1 TD/TT: 12/18/24901 Computer Graphic Artist: Procedure Note Donotuseinterpreter, Image - 12/18/[address] [place] [address] [address] Scan Report Signed Patient: Nuvia Fay EMR #: [id number] : 1960cct:[id number] Age/Sex: 64 / FADM Date: 12/18/24 Loc: .ED Attending Dr: Ordering Physician: Kourtney Jones MD Date of Service: 12/18/24 Procedure(s): CT abdomen pelvis w IV con Accession Number(s): [id number] cc: Kourtney Jones MD; ANTHONY RUIZ NP Report Number: [id number]: Total DLP = 609.00 mGy-cm Reason for [...] in OV> 12/18/24901 DD/ 1 TD/TT: 12/18/24901 Computer Graphic Artist: [facility] External Provider IMG CT PROCEDURES Edited Result - Final * (ABNORMAL) Urinalysis, Complete, with Reflex to Culture (12/18/2024 8:21 AM EDT) Color Urine Yellow [facility] Appearance Urine Clear [facility] PH 7.0 5.0 - 9.0 [facility] Glucose Urine UA Negative Negative mg/dL [facility] Urine Blood Negative Negative [facility] Specific Filion - Urine 1.025 1.005 - 1.025 [facility] Urine Protein Negative Neg-Trace mg/dL [facility] Urine Ketones Negative Negative mg/dL [facility] Nitrite Urine Negative Negative [facility] Leukocyte Esterase Urine Small (1+)(A) Negative [facility] RBC Urine 0-2 0 - 2 /HPF [facility] Urine WBC 0-5 0 - 5 /HPF [facility] Urine Squamous Epithelial Cell 0-2 0 - 2 /HPF [facility] Urine Bacteria None Seen None Seen [facility] Hyaline Casts, Urine 0-2 0 - 2 /LPF [facility] 12/18/2024 8:21 AM EDT 12/18/2024 8:26 AM EDT Narrative [facility] - 12/18/2024 8:45 AM EDT [id number], Clean Catch us Generic External Data Provider LAB URINE ORDERAB LES Final Result Performing Organization Address City/State/[facility] Co de Phone Number [facility] [address] [place] [phone] * XR Chest 1 View (12/18/2024 7:39 AM EDT) Anatomical Region Laterality Modality Chest Radiographic Griselda ging 12/18/2024 7:39 AM EDT Narrative 12/18/2024 7:42 AM EDT [address] [address] XRay Report Signed Patient: Nuvia Fay MR #: [id number] : 1960 Acct:[id number] Age/Sex: 64 / F ADM Date: 12/18/24 Loc: .ED Attending Dr: Ordering Physician: Kourtney Jones MD Date of Service: 12/18/24 Procedure(s): XR chest 1V Accession Number(s): [id number] cc: Kourtney Jones MD; ANTHONY RUIZ NP [...] in OV> 12/18/24740 DD/ 8 TD/TT: 12/18/24738 Computer Graphic Artist: Procedure Note Donotuseinterpreter, Image - 12/18/[address] [address] XRay Report Signed Patient: Nuvia Fay EMR #: [id number] : 1960cct:[id number] Age/Sex: 64 / FADM Date: 12/18/24 Loc: HO.ED Attending Dr: Ordering Physician: Kourtney Jones MD Date of Service: 12/18/24 Procedure(s): XR chest 1V Accession Number(s): [id number] cc: Kourtney Jones MD; ANTHONY RUIZ NP [...] in OV> 12/18/24740 DD/ 8 TD/TT: 12/18/24738 Computer Graphic Artist: [facility] External Provider IMG XR PROCEDURES Edited Result - Final * Culture, Urine, Routine (12/18/2024 12:00 AM EDT) Urine Urine specimen obtained by clean catch procedure / Unknown 12/18/2024 12/18/2024 Comment:[facility] Narrative [facility] - 12/19/2024 12:44 PM EST Urine Culture Report Result Urine Culture 10,000 to 50,000 cfu/ml Urine Culture Mixed bacterial yady characteristic of Urine Culture urogenital contamination. Specimen Source: Urine clean catch us Generic External Data Provider LAB MICROBIOLOGY - GENERAL ORDERABLES Final Result [facility] [address] [place] [phone] * US Abdomen Complete (12/15/2024 9:44 PM EDT) Anatomical Region Laterality Modality Abdomen Ultrasound 12/15/2024 9:44 PM EDT Narrative 12/15/2024 9:46 PM EDT [address] [address] Ultrasound Report Signed Patient: Nuvia Fay MR #: [id number] : 1960 Acct:[id number] Age/Sex: 64 / F ADM Date: 12/15/24 Loc: HO.US Attending Dr: Umm PERALTA Ordering Physician: Umm Ellsworth Date of Service: 12/15/24 Procedure(s): US abdomen complete Accession Number(s): [id number] cc: Umm Ellsworth; ANTHONY RUIZ NP Reason [...] in OV> 12/15/242144 DD/ 43 TD/TT: 12/15/242143 Computer Graphic Artist: Procedure Note Donotuseinterpreter, Image - 12/15/[address] [address] Ultrasound Report Signed Patient: Nuvia Fay EMR #: [id number] : 1960cct:[id number] Age/Sex: 64 / FADM Date: 12/15/24 Loc: HO.US Attending Dr: Umm PERALTA Ordering Physician: Umm Ellsworth Date of Service: 12/15/24 Procedure(s): US abdomen complete Accession Number(s): [id number] cc: Umm Ellsworth; ANTHONY RUIZ NP Reason [...] in OV> 12/15/242144 DD/ 43 TD/TT: 12/15/242143 Computer Graphic Artist: us [facility] External Provider IMG US PROCEDURES Edited Result - Final * XR Chest 2 Views (12/08/2024 2:21 PM EDT) Anatomical Region Laterality Modality Chest Radiographic Griselda ging 12/08/2024 2:21 PM EDT Narrative 12/08/2024 2:34 PM EDT [address] [address] XRay Report Signed Patient: Nuvia Fay MR #: [id number] : 1960 Acct:[id number] Age/Sex: 64 / F ADM Date: 12/08/24 Loc: HO.ED Attending Dr: Ordering Physician: Rosangela Ventura Date of Service: 12/08/24 Procedure(s): XR chest 2V Accession Number(s): [id number] cc: Rosangela Ventura; ANTHONY RUIZ NP Reason [...] 12/08/24 1431 DD/ 1421 TD/TT: 12/08/24 1428 Computer Graphic Artist: Procedure Note Donotuseinterpreter, Image - 12/08/[address] [address] XRay Report Signed Patient: Nuvia Fay EMR #: [id number] : 1960cct:[id number] Age/Sex: 64 / FADM Date: 12/08/24 Loc: HO.ED Attending Dr: Ordering Physician: Rosangela Ventura Date of Service: 12/08/24 Procedure(s): XR chest 2V Accession Number(s): [id number] cc: Rosangela Ventura; ANTHONY RUIZ NP Reason [...] 12/08/24 1431 DD/ 1421 TD/TT: 12/08/24 1428 Computer Graphic Artist: [facility] External Provider IMG XR PROCEDURES Final Result * Influenza A B2 ID NOW (KVK TEAM) (12/08/2024 2:09 PM EDT) IDNOW SERIAL# [id number] [facility] Influenza A Negative Negative [facility] Influenza B2 Negative Negative [facility] Influenza A B2 Note See Note [facility] Comment:The Bailey ID NOW In [...] LAB MICROBIOLOGY - GENERAL ORDERABLES Final Result [facility] [address] [place] [phone] * COVID-19 ID NOW (BAILEY) (12/08/2024 2:09 PM EDT) IDNOW SERIAL# [id number] [facility] COVID-19 TEST Negative Negative [facility] COVID-19 NOTE See Note [facility] Comment: Results are for the identification of SARS-CoV2 RNA. TheSARS-CoV2 RNA is generally detectable in respiratory samplesduring the acute phase of infection. Positive results areindicative of the presence of SARS-CoV-2 RNA; clinicalcorrelation with patient history and other diagnosticinformation is necessary to determine patient infectionstatus. Positive results do not rule out bacterial infectionor co- infection with other viruses.Testing facilities within the [facility] and [facility] are required to report all positive [...] GNOSTICS ORDERABLES Final Result Performing Organization Address [facility]/ZIP Co de Phone Number [facility] [address] [place] [address] [phone] * High Sensitivity Troponin I (12/08/2024 2:09 PM EDT) [facility] TROPONIN I HIGH SENSITIVITY <2.7 <3.5 - 17.0 ng/L [facility] Comment:The Bailey high sens itivity Troponin-I results should beused in conjunction with other diagnostic information suchas ECG, clinical observations and information, and patientsymptoms to aid in the diagnosis of DC. 12/08/2024 2:09 PM EDT 12/08/2024 2:13 PM EDT us Generic External Data Provider LAB BLOOD ORDERAB LES Final Result Performing Organization Address [facility] Co de Phone Number [facility] [address] [place] [address] [phone] * (ABNORMAL) CBC auto differential (12/08/2024 2:09 PM EDT) [facility] White Blood Count 7.6 4.8 - 10.8 X10*3/uL [facility] Red Blood Count 4.67 4.20 - 5.50 X10*6/uL [facility] Hemoglobin 14.7 12.0 - 16.0 g/dl [facility] Hematocrit 44.2 37.0 - 47.0 % [facility] Mean Corpuscular Volume 94.6 80.0 - 98.0 fL [facility] Mean Corpuscular Hemoglobin 31.5 27.0 - 33.0 pg [facility] Mean Corpuscular HGB Conc 33.3 31.0 - 35.0 g/dl [facility] Red Cell Distribution Width 12.9 11.0 - 16.0 % [facility] Platelet Count 268 160 - 400 X10*3/uL [facility] Mean Platelet Volume 9.2(L) 9.4 - 12.3 fL [facility] Neutrophils Percent Auto 82.1(H) 45 - 73 % [facility] Imm Gran Pct Auto 0.3 0.0 - 0.4 % [facility] Lymphocytes Percent Auto 16.1(L) 20 - 40 % [facility] Monocytes Percent Auto 0.8(L) 2 - 11 % [facility] Eosinophils Percent Auto 0.3 0 - 4 % [facility] Basophils Percent Auto 0.4 0 - 2 % [facility] NRBC Pct Auto 0.0 0.0 - 0.2 /100WBC [facility] Neutrophils Absolute Auto 6.2 2.0 - 8.3 x10*3/uL [facility] Imm Gran Abs Auto 0.02 0.00 - 0.03 X10*3/uL [facility] Lymphocytes Absolute Auto 1.2 1.2 - 4.9 X10*3/uL [facility] Monocytes Absolute Auto 0.1 0.1 - 1.2 X10*3/uL [facility] Eosinophils Absolute Auto 0.0 0.0 - 0.4 X10*3/uL [facility] Basophils Absolute Auto 0.0 0.0 - 0.2 X10*3/uL [facility] NRBC Abs Auto 0.000 0.0 - 0.012 X10*3/uL [facility] 12/08/2024 2:09 PM EDT 12/08/2024 2:13 PM EDT us Generic External Data Provider LAB BLOOD ORDERAB LES Final Result [facility] [address] [place] [phone] [phone] * Magnesium (12/08/2024 2:09 PM EDT) Magnesium 2.1 1.6 - 2.6 mg/dL [facility] 12/08/2024 2:09 PM EDT 12/08/2024 2:13 PM EDT us Generic External Data Provider LAB BLOOD ORDERAB LES Final Result [facility] [address], [place] [phone] * (ABNORMAL) Comprehensive Metabolic Panel (12/08/2024 2:09 PM EDT) Sodium 141 135 - 145 mmol/L [facility] Potassium 3.7 3.3 - 5.1 mmol/L [facility] Chloride 109(H) 96 - 108 mmol/L [facility] Carbon Dioxide 25 22 - 29 mmol/L [facility] Anion Gap 11(L) 12 - 20 [facility] Urea Nitrogen (BUN) 13 9 - 16 mg/dL [facility] Creatinine, Serum 0.90 0.5 - 1.4 mg/dL [facility] Creatinine Clr Calc Pharmacy 64.2 [facility] Comment:Provided height and weight: 152.4 cm,92.896 kg.eGFR (calculated from the MDRD study equation) and eCrCl(calculated from the Cockcroft-Gault equation) are based ondifferent parameters and may not yield comparable results.If eCrCl result is absurd, please check patient'sheight/weight. Estimated Glomerular Filt Rate >60 [facility] Comment:Chronic Kidney Disea se: Estimated GFR < 60 mL/min/1.88e1Ovwjeo Kidney Disease: Estimated GFR < 15 mL/min/1.73m2 Glucose 214(H) 60 - 115 mg/dL [facility] Calcium 9.8 8.4 - 10.2 mg/dL [facility] Bilirubin, Total 0.3 0.0 - 1.0 mg/dL [facility] Aspartate Amino Transferase 28 5 - 31 U/L [facility] Alanine Aminotransferase 16 0 - 31 U/L [facility] Total Protein 7.4 6.5 - 8.0 g/dL [facility] Albumin Level 4.2 3.5 - 5.0 g/dL [facility] Alkaline Phosphatase 101 39 - 117 U/L [facility] 12/08/2024 2:09 PM EDT 12/08/2024 2:13 PM EDT Generic External Data Provider LAB BLOOD ORDERAB LES Final Result [facility] [address] [place] [address] [phone] * Hepatitis C Antibody ([facility]) (08/06/2024) Hepatitis C Ab Nonreactive Blood 08/06/2024 Historical Provider MD LAB BLOOD ORDERABLES Kelsey l Result * HIV Ab/Ag ([facility]) (08/06/2024) Pathologist [facility] HIV Ag/Ab Nonreactive Blood 08/06/2024 Historical Provider MD LAB BLOOD ORDERABLES Kelsey l Result * (ABNORMAL) Lipid Panel, Standard (06/18/2024 10:18 AM EDT) Triglycerides 122 <150 mg/dL [facility] Comment:Desirable Triglyceri de: less than 150 mg/dLBorderline High Triglyceride 150-199 mg/dLHigh Triglyceride: 200-499 mg/dLVery High Triglyceride: greater than or equal to 5OO mg/dL Cholesterol 216(H) <200 mg/dL [facility] Comment:Desirable Cholestero l: less than 200 mg/dLBorderline High Cholesterol: 200-239 mg/dLHigh Cholesterol: greater than 239 mg/dL LDL Cholesterol Calculated 128(H) <100 mg/dL [facility] Comment:Desirable LDL: less than 100 mg/dLNear Optimal/Above Optimal LDL: 110- 129 mg/dLBorderline High LDL: 130-159 mg/dLHigh LDL: 160-189 mg/dLVery High LDL: greater than or equal to 190 mg/dL HDL Cholesterol 64 >40 mg/dL [facility] Comment:Desirable HDL: great er than 40 mg/dL Note: This HDL assay may give artificially low results in patients with liver disease. Blood Venous blood specimen / Unknown 06/18/2024 10:18 AM EDT 06/18/2024 11:08 AM EDT us Anthony Ruiz ANP LAB BLOOD ORDERABLES Final Resul t [facility] [address] [place] [address] [phone] * BI Mammogram Screening Tomosynthesis Bilateral (04/12/2024 1:48 PM EST) Anatomical Region Laterality Modality Breast Bilateral Mammography 04/12/2024 1:48 PM EST Narrative 04/17/2024 12:38 PM EST [address] [place] [address] Mammography Report Signed Patient: Nuvia Fay MR #: [id number] : 1960 Acct:[id number] Age/Sex: 63 / F ADM Date: 04/12/24 Loc: HO.MAMMO Attending Dr: Monica Lozano CNM Ordering Physician: Monica Lozano CNM Results: 2Beni gn Findings Date of Service: 04/12/24 Follow Up: 1 Year From [facility] ina Mammogram Procedure(s): MM tomosynthesis screening BI Accession Number(s): [id number] cc: Monica Lozano CNM; ANTHONY RUIZ NP [...] 04/17/24 1235 DD/ 1348 TD/TT: 04/12/24 1405 Computer Graphic Artist: Procedure Note Donotuseinterpreter, Image - 04/17/2024 [facility] [address] [place] [address] Mammography Report Signed Patient: Nuvia Fay EMR #: [id number] : 1960cct:[id number] Age/Sex: 63 / FADM Date: 04/12/24 Loc: HO.MAMMO Attending Dr: Monica Lozano CNM Ordering Physician: Monica Lozanoesults: 2Beni gn Findings Date of Service: 04/12/24Follow Up: 1 Year From Orig inal Mammogram Procedure(s): MM tomosynthesis screening BI Accession Number(s): [id number] cc: Monica Lozano CNM; ANTHONY RUIZ NP [...] 04/17/24 1235 DD/ 1348 TD/TT: 04/12/24 1405 Computer Graphic Artist: [facility] External Provider IMG BI PROCEDURES Edited Result - Final * Albumin, Random Urine W/Creatinine (01/02/2024 8:44 AM EST) Creatinine, Urine 47.20 mg/dL [facility] Microalbumin Urine 7.0 mg/L [facility] Microalbum Creatinine Ratio Ur 14.8 <30 ug/mg cr [facility] Comment:Albumin/Creatinine R atio Reference Ranges: Normal: < 30 ug/mg creatinine Microalbuminuria: 30 - 300 ug/mg creatinineClinical Albuminuria: > 300 ug/mg creatinine Urine (Urine, Random) 01/02/2024 8:44 AM EST 01/02/2024 11:09 AM EST [facility] URINE ORDERABLES Final Resul t Performing Organization Address City/State/[facility] Co de Phone Number [facility] [address] [place] [phone] * (ABNORMAL) Colonoscopy (12/27/2021) Colonoscopy Abnormal(A ) Normal Historical Provider HEALTH MAINTENANCE Final Result * HPV E6/E7 RFLX ALFRED 16 18/45 (05/09/2020 11:19 AM EDT) HPV mRNA E6/E7 rflx Not Detected Not Detected [facility] Comment: Methodology: Hem Marker-Mediated Amplification This assay detects E6/E7 viral messenger RNA (mRNA) from 14 high-risk HPV types (16,18,31,33,35,39,45,51,52,56,58,59,66,68). The analytical performance characteristics of this assay have been determined by [employer]. The modifications have not been cleared or approved by the FDA. This assay has been validated pursuant to the CLIA regulations and is used for clinical purposes. For additional information, please refer to http://education.[employer] Mobile/faq/HHG706s9 (This link if provided for information/ educational purposes only.) THIS TEST WAS PERFORMED AT: [facility] [address] [place] [address] [address] FLOOR,[place] [address] HERNAN WARREN MD 05/09/2020 11:1 9 AM EDT [place] HISTORICAL/NON ORDERABLE LABS Fi nal Result [facility] [address] from Last 3 Months or Most [...] 02/09/2025 Patient has chronic kidney disease 02/09/2025 Insurance [place] [id number] [facility] Care Teams Flight Paramedic Relationship Specialty Start Date End Date Anthony Ruiz ANP [address] [place] [address] PCP - General Family Medicine 09/23/19 Ron Preciado MD [address] [place], [place] Pulmonary Disease 05/17/24 Felipe Alanis MD 11 [facility] [address] [place], [place] Cardiology 01/11/25 Rosemary Moses NP 10 [facility] [address] [place], [place] Urology 01/11/25 Umm Ellsworth 11 [facility] [address] [place], [place] Gastroenterology 01/11/25
--- OUTSIDE RECORDS SUMMARY | 2025-02-16 12:38 | XMS_ITS | Encounter Summary ---
Author Organization [employer] Address [address] [facility] 7t [place] [address] Care Team Providers Care Socket Puller Name Role Phone Sariah Vickers Primary Care Provider Yuri Pierre PharmD Unavailable Basilio Hall MD Unavailable [phone] Ron Preciado MD Unavailable [phone] Felipe Alanis MD Unavailable [phone] Rosemary Moses NP Unavailable May Unavailable Reason for Visit * Reason Comments Med Refill Encounter Details Date Type Department Care Team (Late st Contact Info) Description 01/06/2024 Refill [facility] MED & PEDS [address] [place] [address] Sariah Vickers ANP [address] [place] [address] Cervicalgia Social History Tobacco Use Types Packs/Day [...] [facility] MED & PEDS [address] [place] [address] Azeb Hall, RN [address] [place] [address] 05/10/2025 1:00 PM EDT Office Visit [facility] MEDICINE [address] [place] [address] Sariah Vickers ANP [address] [place] [address] documented as of this encounter Goals Goal [...] documented as of this encounter Care Teams Socket Puller Relationship Specialty Start Date End Date Sariah Vickers ANP [address] [place] [address] PCP - General Family Medicine 09/23/19 Yuri Pierre, PharmD [address] [place] [address] Pharmacist Internal Medicine 05/05/24 02/03/25 Basilio Hall MD [address] [place] [address] Cardiology 05/17/24 01/10/25 Ron Preciado MD 5 [place] [address] Pulmonary Disease 05/17/24 Felipe Alanis MD [address] [place] [address] Cardiology 01/11/25 Rosemary Moses NP [address] [place] [address] Urology 01/11/[address] [place] [address] Gastroenterology 01/11/25 documented as of this encounter
--- OUTSIDE RECORDS SUMMARY | 2025-02-16 12:38 | XMS_ITS | Encounter Summary ---
Author Organization [employer] Address [address] [facility] 7t [place] [address] Care Team Providers Care Ingredient Handler Name Role Phone Sariah Vickers Primary Care Provider Yuri Pierre PharmD Unavailable Basilio Hall MD Unavailable [phone] Ron Preciado MD Unavailable [phone] Felipe Alanis MD Unavailable Rosemary Moses NP Unavailable May Unavailable Reason for Visit * Reason Comments Med Refill Encounter Details Date Type Department Care Team (Late st Contact Info) Description 12/17/2024 Refill [facility] MEDICINE [address] [place] [address] Sariah Vickers ANP 230 [place] [address] Chronic SI joint pain Social History Tobacco [...] Upcoming Encounters Date Type Department Care Team ([facility] st Contact Info) Description 04/04/2025 10:00 AM EST Telemedicine [facility] CHC MED & PEDS [address] [place] [address] Azeb Hall, RN [address] [place] [address] 05/10/2025 1:00 PM EDT Office Visit [facility] MEDICINE [address] [place] [address] Sariah Vickers, ANP [address] [place] [address] documented as of this encounter Goals Goal [...] documented as of this encounter Care Teams Ingredient Handler Relationship Specialty Start Date End Date Sariah iVckers ANP [address] [place] [address] PCP - General Family Medicine 09/23/19 Yuri Pierre, MikeD [address] [place] [address] Pharmacist Internal Medicine 05/05/24 02/03/25 Basilio Hall MD [address] [place] [address] Cardiology 05/17/24 01/10/25 Ron Preciado MD 5 [place] [address] Pulmonary Disease 05/17/24 Felipe Alanis MD 11 [facility] [address] [place] [address] Cardiology 01/11/25 Rosemary Moses NP [address] [place] [address] Urology 01/11/25 Jodee May 11 [facility] [address] [place] [address] Gastroenterology 01/11/25 documented as of this encounter
--- OUTSIDE RECORDS SUMMARY | 2025-02-16 12:38 | XMS_ITS | Encounter Summary ---
Author Organization [employer] Address [address] [facility] 7t [place] [address] Care Team Providers Care Golf Superintendent Name Role Phone Sariah Vickers Primary Care Provider Yuri Pierre PharmD Unavailable Basilio Hall MD Unavailable Ron Preciado MD Unavailable [phone] Felipe Alanis MD Unavailable [phone] Rosemary Moses NP Unavailable May Unavailable Reason for Visit * Reason Comments Med Refill Encounter Details Date Type Department Care Team (Late st Contact Info) Description 01/04/2024 Refill [facility] CHC MED & PEDS [address] [place] [address] Sariah Vickers ANP [address] [place] [address] Cervicalgia Social History Tobacco Use Types Packs/Day [...] 04/04/2025 10:00 AM EST Telemedicine [facility] CHC MED & PEDS [address] [place] [address] Azeb Hall, RN [address] [place] [address] 05/10/2025 1:00 PM EDT Office Visit [facility] MEDICINE [address] [place] [address] Sariah Vickers ANP [address] [place] [address] documented as of this encounter Goals Goal [...] documented as of this encounter Care Teams Golf Superintendent Relationship Specialty Start Date End Date Sariah Vickers ANP [address] [place] [address] PCP - General Family Medicine 09/23/19 Yuri Pierre, PharmD [address] [place] [address] Pharmacist Internal Medicine 05/05/24 02/03/25 Basilio Hall MD [address] [place] [address] Cardiology 05/17/24 01/10/25 Ron Preciado MD 5 [place] [address] Pulmonary Disease 05/17/24 Felipe Alanis MD [address] [place] [address] Cardiology 01/11/25 Rosemary Moses NP [address] [place] [address] Urology 01/11/[address] [place] [address] Gastroenterology 01/11/25 documented as of this encounter
--- OUTSIDE RECORDS SUMMARY | 2025-02-16 12:38 | XMS_ITS | Encounter Summary ---
Author Organization [employer] Address [address] [facility] 7t [place] [address] Care Team Providers Care Screw 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 Single Spindle Name Role Phone Sariah Vickers Primary Care Provider Yuri Pierre PharmD Unavailable Basilio Hall MD Unavailable Ron Preciado MD Unavailable [phone] Felipe Alanis MD Unavailable Rosemary Moses NP Unavailable May Unavailable Reason for Visit * Reason Comments Med Refill Encounter Details Date Type Department Care Team (Late st Contact Info) Description 01/06/2024 Refill [facility] CHC MED & PEDS [address] [place] [address] Sariah Vickers ANP [address] [place] [address] Cervicalgia Social History Tobacco Use Types Packs/Day [...] Description 04/04/2025 10:00 AM EST Telemedicine [facility] CHC MED & PEDS [address] [place] [address] Azeb Hall, RN 505 [place] [address] 05/10/2025 1:00 PM EDT Office Visit [facility] MEDICINE 230 [place] [address] Sariah Vickers ANP [address] [place] [address] documented as of this encounter Goals Goal [...] documented as of this encounter Care Teams Screw 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 Single Spindle Relationship Specialty Start Date End Date Sariah Vickers ANP [address] [place] [address] PCP - General Family Medicine 09/23/19 Yuri Pierre, PharmD [address] [place] [address] Pharmacist Internal Medicine 05/05/24 02/03/25 Basilio Hall MD 5[address] [place] [address] Cardiology 05/17/24 01/10/25 Ron Preciado MD 5 [place] [address] Pulmonary Disease 05/17/24 Felipe Alanis MD [address] [place] [address] Cardiology 01/11/25 Rosemary Moses NP [address] [place] [address] Urology 01/11/[address] [place] [address] Gastroenterology 01/11/25 documented as of this encounter
--- OUTSIDE RECORDS SUMMARY | 2025-02-16 12:38 | XMS_ITS | Encounter Summary ---
Author Organization [employer] Address [address] [facility] 7t [place] [address] Care Team Providers Care Collection Technician Name Role Phone Sariah Vickers Primary Care Provider [phone] Yuri Pierre PharmD Unavailable [phone] Basilio Hall MD Unavailable Ron Preciado MD Unavailable [phone] Felipe Alanis MD Unavailable [phone] Rosemary Moses NP Unavailable May Unavailable Reason for Visit * Reason Onset Date Comments Referral 08/02/2024 Encounter Details Date Type Department Care Team (Late st Contact Info) Description 08/02/2024 Telephone [facility] MEDICINE [address] [place], [place] [phone] Sariah Vickers ANP [address] [place], [place] [phone] Referral Social History Tobacco Use Types Packs/Day [...] for vertigo therapy. Please contact pt at [phone]. (Malay Speaker) documented in this encounter Plan of Treatment Upcoming Encounters Date Type Department Care Team ([facility] st Contact Info) Description 04/04/2025 10:00 AM EST Telemedicine [facility] MED & PEDS [address] [place] [address] Azeb Hall, RN [address] [place] [address] 05/10/2025 1:00 PM EDT Office Visit [facility] MEDICINE 230 [place] [address] Sariah Vickers ANP [address] [place] [address] documented as of this encounter Goals Goal [...] documented as of this encounter Care Teams Collection Technician Relationship Specialty Start Date End Date Sariah Vickers ANP [address] [place] [address] PCP - General Family Medicine 09/23/19 Yuri Pierre, MikeD [address] [place] [address] Pharmacist Internal Medicine 05/05/24 02/03/25 Basilio Hall MD [address] [place] [address] Cardiology 05/17/24 01/10/25 Ron Preciado MD 5 [place] [address] Pulmonary Disease 05/17/24 Felipe Alanis MD 11 [facility] 3rd [place] [address] Cardiology 01/11/25 Rosemary Moses NP [address] [place] [address] Urology 01/11/25 Jodee Umm [address] 3[address] Floor [place] [address] Gastroenterology 01/11/25 documented as of this encounter
--- OUTSIDE RECORDS SUMMARY | 2025-02-16 12:38 | XMS_ITS | Encounter Summary ---
Author Organization [employer] Address [address] [facility] 7t [place] [address] Care Team Providers Care Tractor Crane Operator Name Role Phone Sariah Vickers Primary Care Provider Yuri Pierre PharmD Unavailable Basilio Hall MD Unavailable Ron Preciado MD Unavailable [phone] Felipe Alanis MD Unavailable Rosemary Moses NP Unavailable May Unavailable Reason for Visit * Reason Onset Date Comments Med Refill 01/09/2024 Encounter Details Date Type Department Care Team (Late st Contact Info) Description 01/09/2024 Telephone [facility] MEDICINE 230 [place] [address] Sariah Vickers ANP 230 [place] [address] Med Refill Social History Tobacco Use Types [...] Info) Description 04/04/2025 10:00 AM EST Telemedicine [facility] CHC MED & PEDS 505 [place] [address] Azeb Hall, RN 505 [place] [address] 05/10/2025 1:00 PM EDT Office Visit [facility] MEDICINE [address] [place] [address] Sariah Vickers ANP 230 [place] [address] documented as of this encounter Goals Goal [...] documented as of this encounter Care Teams Tractor Crane Operator Relationship Specialty Start Date End Date Sariah Vickers ANP 230 [place] [address] PCP - General Family Medicine 09/23/19 Yuri Pierre, MikeD 230 [place] [address] Pharmacist Internal Medicine 05/05/24 02/03/25 Basilio Hall MD 5[address] [place] [address] Cardiology 05/17/24 01/10/25 Ron Preciado MD 5 [place] [address] Pulmonary Disease 05/17/24 Felipe Alanis MD [address] [place] [address] Cardiology 01/11/25 Rosemary Moses NP [address] [place] [address] Urology 01/11/25May [address] [place] [address] Gastroenterology 01/11/25 documented as of this encounter
--- OUTSIDE RECORDS SUMMARY | 2025-02-16 12:38 | XMS_ITS | Encounter Summary ---
Author Organization [employer] Address 75 [facility] 7t [place] [address] Care Team Providers Care Bill Peddler Name Role Phone Anthony Ruiz Primary Care Provider Yuri Pierre PharmD Unavailable [phone] Basilio Hall MD Unavailable Ron Preciado MD Unavailable [phone] Felipe Alanis MD Unavailable [phone] Rosemary Moses NP Unavailable May Unavailable Encounter Details Date Type Department Care Team (Late st Contact Info) Description 09/28/2024 Orders Only [facility] MEDICINE 230 [place], [place] [phone] Anthony Ruiz ANP 230 [place], [place] [phone] Social History Tobacco Use Types Packs/Day Years [...] the past 12 months, has t he [employer], gas, oil or water [employer] threatened to shut off services in your [...] Info) Description 04/04/2025 10:00 AM EST Telemedicine [facility] CHC MED & PEDS 505 [place] [address] Azeb Hall, RN 505 [place] [address] 05/10/2025 1:00 PM EDT Office Visit [facility] MEDICINE 230 [place] [address] Anthony Ruiz ANP 230 [place] [address] documented as of this encounter Goals Goal [...] PM EDT Narrative 10/09/2024 1:20 PM EDT [place] [address] [address] Scan Report Signed Patient: Nuvia Fay MR #: [id number] : 1960 Acct:[id number] Age/Sex: 64 / F ADM Date: 10/08/24 Loc: HO.CT Attending Dr: Ron Preciado MD Ordering Physician: Ron Preciado MD Date of Service: 10/08/24 Procedure(s): CT lung screening Accession Number(s): [id number] cc: Ron Preciado MD; ANTHONY RUIZ NP Report Number: [id number]: Total DLP = 64.00 mGy-cm CLINICAL HISTORY: [...] 10/09/24 1319 DD/ 1318 TD/TT: 10/09/24 1318 Gas Compressor Operator: Procedure Note Donotuseinterpreter, Image - 10/09/[address] [place] [address] [address] Scan Report Signed Patient: Nuvia Fay EMR #: [id number] : [id number]:[id number] Age/Sex: 64 / FADM Date: 10/08/24 Loc: HO.CT Attending Dr: Ron Preciado MD Ordering Physician: Ron Preciado MD Date of Service: 10/08/24 Procedure(s): CT lung screening Accession Number(s): [id number] cc: Ron Preciado MD; ANTHONY RUIZ NP Report Number: [id number]: Total DLP = 64.00 mGy-cm CLINICAL HISTORY: [...] 10/09/24 1319 DD/ 1318 TD/TT: 10/09/24 1318 Gas Compressor Operator: [facility] External Provider IMG CT PROCEDURES Edited Result - Final documented in this encounter Visit Diagnoses Not on filedocumented in this encounter Additional Health Concerns Assessment Noted Time PHQ-9 Depression Total Score: 12 09/30/ 024 2:58 PM EDT documented as of this encounter Care Teams Bill Peddler Relationship Specialty Start Date End Date Anthony Ruiz ANP 230 [place] [address] PCP - General Family Medicine 09/23/19 Yuri Pierre, MikeD 230 [place] [address] Pharmacist Internal Medicine 05/05/24 02/03/25 Basilio Hall MD [address] [place] [address] Cardiology 05/17/24 01/10/25 Ron Preciado MD 5 [place] [address] Pulmonary Disease 05/17/24 Felipe Alanis MD 11 [facility] 3rd [place] [address] Cardiology 01/11/25 Rosemary Moses NP [address] [place] [address] Urology 01/11/25 Umm Ellsworth 11 [facility] 3rd [place] [address] Gastroenterology 01/11/25 documented as of this encounter
--- OUTSIDE RECORDS SUMMARY | 2025-02-16 12:39 | XMS_ITS | Encounter Summary ---
Author Organization [employer] Address 75 [facility] 7t [place] [address] Care Team Providers Care Rippler Name Role Phone Sariah Vickers Primary Care Provider [phone] Yuri Pierre PharmD Unavailable Basilio Hall MD Unavailable [phone] Ron Preciado MD Unavailable [phone] Felipe Alanis MD Unavailable Rosemary Moses NP Unavailable May Unavailable Reason for Visit * Reason Comments Med Refill Encounter Details Date Type Department Care Team (Late st Contact Info) Description 07/12/2022 Refill [facility] MEDICINE 230 [place], [place] [phone] Sariah Vickers ANP 230 [place] [address] Social History Tobacco Use Types Packs/Day Years [...] [facility] 505 [place] [address] Azeb Hall, MARTIN 505 [place] [address] 05/10/2025 1:00 PM EDT Office Visit [facility] MEDICINE 230 [place] [address] Sariah Vickers ANP 230 [place] [address] documented as of this encounter Visit Diagnoses Not on filedocumented in this encounter Care Teams Rippler Relationship Specialty Start Date End Date Sariah Vickers ANP 230 [place] [address] PCP - General Family Medicine 09/23/19 Yuri Pierre, MikeD [address] [place] [address] Pharmacist Internal Medicine 05/05/24 02/03/25 Basilio Hall MD 5[address] [place] [address] Cardiology 05/17/24 01/10/25 Ron Preciado MD [address] [place] [address] Pulmonary Disease 05/17/24 Felipe Alanis MD 11 [facility] 3rd [place] [address] Cardiology 01/11/25 Rosemary Moses NP [address] [place] [address] Urology 01/11/25 Jodee May [address] 3rd [place] [address] Gastroenterology 01/11/25 documented as of this encounter
--- OUTSIDE RECORDS SUMMARY | 2025-02-16 12:39 | XMS_ITS | Encounter Summary ---
Author Organization [employer] Address 75 [facility] 7t [place] [address] Care Team Providers Care Shop Coordinator Name Role Phone Sariah Vickers Primary Care Provider Yuri Pierre PharmD Unavailable Basilio Hall MD Unavailable Ron Preciado MD Unavailable [phone] Felipe Alanis MD Unavailable Rosemary Moses NP Unavailable May Unavailable Reason for Visit * Reason Onset Date Comments Appointment Request 09/03/2024 Encounter Details Date Type Department Care Team (Late st Contact Info) Description 09/03/2024 Telephone [facility] MEDICINE 230 [place], [place] [phone] Sariah Vickers ANP 230 [place] [address] Appointment Request Social History Tobacco Use Types [...] making the apt. Contact pt at [phone] documented in this encounter Plan of Treatment Upcoming Encounters Date Type Department Care Team (Late st Contact Info) Description 04/04/2025 10:00 AM EST Telemedicine [facility] CHC MED & PEDS 505 [place] [address] Azeb Hall, MARTIN 505 [place] [address] 05/10/2025 1:00 PM EDT Office Visit [facility] MEDICINE [address] [place] [phone] Sariah Vickers ANP 230 [place] [address] documented as of this encounter Goals Goal [...] documented as of this encounter Care Teams Shop Coordinator Relationship Specialty Start Date End Date Sariah Vickers ANP 230 [place] [address] PCP - General Family Medicine 09/23/19 Yuri Pierre, MikeD 230 [place] [address] Pharmacist Internal Medicine 05/05/24 02/03/25 Basilio Hall MD 596 [place] [address] Cardiology 05/17/24 01/10/25 Ron Preciado MD 5 [place] [address] Pulmonary Disease 05/17/24 Felipe Alanis MD [address] 3rd [place] [address] Cardiology 01/11/25 Rosemary Moses NP [address] [place] [address] Urology 01/11/25 Jodee, May [address] [place] [address] Drive 3rd [place] [address] Gastroenterology 01/11/25 documented as of this encounter
--- OUTSIDE RECORDS SUMMARY | 2025-02-16 12:39 | XMS_ITS | Encounter Summary ---
Author Organization [employer] Address 75 [facility] 7t [place] [address] Care Team Providers Care Bed Setter Name Role Phone Sariah Vickers Primary Care Provider [phone] Yuri Pierre PharmD Unavailable [phone] Basilio Hall MD Unavailable Ron Preciado MD Unavailable [phone] Felipe Alanis MD Unavailable Rosemary Moses NP Unavailable May Unavailable Reason for Visit * Reason Comments Med Refill Encounter Details Date Type Department Care Team (Late st Contact Info) Description 02/28/[address] [facility] MEDICINE 230 [place] [address] Sariah Vickers ANP 230 [place] [address] Cervicalgia Social History Tobacco Use Types Packs/Day [...] the past 12 months, has t he [employer], gas, oil or water company threatened to [...] 10:00 AM EST Telemedicine [facility] CHC MED & PEDS 505 [place] [address] Azeb Hall, MARTIN 505 [place] [address] 05/10/2025 1:00 PM EDT Office Visit [facility] MEDICINE 230 [place] [address] Sariah Vickers ANP 230 [place] [address] documented as of this encounter Goals Goal [...] Cervicalgia documented in this encounter Care Teams Bed Setter Relationship Specialty Start Date End Date Sariah Vickers ANP 230 [place] [address] PCP - General Family Medicine 09/23/19 Yuri Pierre, MikeD 230 [place] [address] Pharmacist Internal Medicine 05/05/24 02/03/25 Basilio Hall MD 596 [place] [address] Cardiology 05/17/24 01/10/25 Ron Preciado MD 5 [place] [address] Pulmonary Disease 05/17/24 Felipe Alanis MD [address] 3rd [place] [address] Cardiology 01/11/25 Rosemary Moses NP [address] [place] [address] Urology 01/11/25 Jodee May 11 [facility] 3rd [place] [address] Gastroenterology 01/11/25 documented as of this encounter
--- OUTSIDE RECORDS SUMMARY | 2025-02-16 12:39 | XMS_ITS | Encounter Summary ---
Author Organization [employer] Address 75 [facility] 7t [place] [address] Care Team Providers Care Cdl Instructor Name Role Phone Sariah Vickers KAYLEE Primary Care Provider [phone] Yuri Pierre PharmD Unavailable [phone] Basilio Hall MD Unavailable [phone] Ron Preciado MD Unavailable [phone] Felipe Alanis MD Unavailable [phone] Rosemary Moses NP Unavailable May Unavailable Reason for Visit * Reason Comments Med Refill Encounter Details Date Type Department Care Team (Late st Contact Info) Description 10/04/[address] [facility] CHC MED & PEDS [address] [place] [address] Zakia Uriostegui, CENTRIFUGE OPERATOR 230 [place] [address] Type 2 diabetes mellitus with hyperglycemia (CMS/HCC) [...] Description 04/04/2025 10:[address] [facility] CHC MED & PEDS 505 [place] [address] Azeb Hall, MARTIN 505 [place] [address] 05/10/2025 1:00 PM EDT Office Visit [facility] MEDICINE 230 [place] [address] Sariah Vickers ANP 230 [place] [address] documented as of this encounter Goals Goal [...] documented as of this encounter Care Teams Cdl Instructor Relationship Specialty Start Date End Date Sariah Vickers ANP 230 [place] [address] PCP - General Family Medicine 09/23/19 Yuri Pierre, MikeD [address] [place] [address] Pharmacist Internal Medicine 05/05/24 02/03/25 Basilio Hall MD [address] [place] [address] Cardiology 05/17/24 01/10/25 Ron Preciado MD [address] [place] [address] Pulmonary Disease 05/17/24 Felipe Alanis MD 11 [facility] 3rd [place] [address] Cardiology 01/11/25 Rosemary Moses NP [address] [place] [address] Urology 01/11/25 Umm Ellsworth [address] [address] Gastroenterology 01/11/25 documented as of this encounter
--- OUTSIDE RECORDS SUMMARY | 2025-02-16 12:39 | XMS_ITS | Encounter Summary ---
Author Organization [employer] Address 75 [facility] 7t [place] [address] Care Team Providers Care Tip Banding 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 Name Role Phone Sariah Vickers Primary Care Provider Yuri Pierre PharmD Unavailable [phone] Basilio Hall MD Unavailable [phone] Ron Preciado MD Unavailable Felipe Alanis MD Unavailable Rosemary Moses NP Unavailable May Unavailable Reason for Visit * Reason Comments Med Refill Encounter Details Date Type Department Care Team (Late st Contact Info) Description 12/27/2022 Refill [facility] MEDICINE 230 [place] [address] Sariah Vickers ANP 230 [place] [address] Neck pain Social History Tobacco Use Types [...] the past 12 months, has t he [employer], gas, oil or water company threatened to [...] [facility]EDS 505 [place] [address] Azeb Hall, MARTIN 505 [place] [address] 05/10/2025 1:00 PM EDT Office Visit [facility] MEDICINE 230 [place] [address] Sariah Vickers ANP 230 [place] [address] documented as of this encounter Goals Goal [...] Cervicalgia documented in this encounter Care Teams Tip Banding 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 Relationship Specialty Start Date End Date Sariah Vickers ANP 230 [place] [address] PCP - General Family Medicine 09/23/19 Yuri Pierre, Dileep 230 [place] [address] Pharmacist Internal Medicine 05/05/24 02/03/25 Basilio Hall MD 596 [place] [address] Cardiology 05/17/24 01/10/25 Ron Preciado MD 5 [place] [address] Pulmonary Disease 05/17/24 Felipe Alanis MD 11 [facility] 3rd [place] [address] Cardiology 01/11/25 Rosemary Moses NP [address] [place] [address] Urology 01/11/25 oJdee May 11 [facility] 3rd [place] [address] Gastroenterology 01/11/25 documented as of this encounter
--- OUTSIDE RECORDS SUMMARY | 2025-02-16 12:39 | XMS_ITS | Encounter Summary ---
Author Organization [employer] Address 75 [facility] 7t [place] [address] Care Team Providers Care Stores Assistant Name Role Phone Sariah Vickers Primary Care Provider Yuri Pierre PharmD Unavailable [phone] Basilio Hall MD Unavailable Ron Preciado MD Unavailable [phone] Felipe Alanis MD Unavailable Rosemary Moses NP Unavailable May Unavailable Reason for Visit * Reason Comments Med Refill Encounter Details Date Type Department Care Team (Late st Contact Info) Description 05/09/2023 Refill [facility] MEDICINE 230 [place] [address] Sariah Vickers ANP 230 [place] [address] High cholesterol Social History Tobacco Use Types [...] the past 12 months, has t he [employer], gas, oil or water company threatened [...] Info) Description 04/04/2025 10:00 AM EST Telemedicine [facility] CHC MED & PEDS 505 [place] [address] Azeb Hall, MARTIN 505 [place] [address] 05/10/2025 1:00 PM EDT Office Visit [facility] MEDICINE 230 [place] [address] Sariah Vickers ANP 230 [place] [address] documented as of this encounter Goals Goal [...] hypercholesterolemia documented in this encounter Care Teams Stores Assistant Relationship Specialty Start Date End Date Sariah Vickers ANP 230 [place] [address] PCP - General Family Medicine 09/23/19 Yuri Pierre, Dileep 230 [place] [address] Pharmacist Internal Medicine 05/05/24 02/03/25 Basilio Hall MD 596 [place] [address] Cardiology 05/17/24 01/10/25 Ron Preciado MD 5 [place] [address] Pulmonary Disease 05/17/24 Felipe Alanis MD 11 [facility] 3rd [place] [address] Cardiology 01/11/25 Rosemary Moses NP [address] [place] [address] Urology 01/11/25 Jodee May 11 [facility] 3rd [place] [address] Gastroenterology 01/11/25 documented as of this encounter
--- OUTSIDE RECORDS SUMMARY | 2025-02-16 12:39 | XMS_ITS | Data Portability ---
Author Organization [employer] [facility], [facility] Address [address] [place] [address] Care Team Providers Care Environmental Advisor Name Role Phone HIM CCA OTHER Unavailable Primary Care Provider Assessment Encounter Date Assessment Date Assessment LastModified by Organization Details LastModified Time 09/23/2024 09/23/2024 Mrs. Da Silva presented for isolated episode of nausea and vomiting after taking augmentin on empty stomach. She is on augmentin and prednisone for asthma. Patient afebrile and well-appearing, no abdominal tenderness or distension per community lay ups assembler exam, nausea has resolved. No chest pain [...] Assessment and Plan as documented by the Extras Casting Director. We discussed the diagnostic uncertainty of [...] Assessment and Plan as documented by the Extras Casting Director. We discussed the diagnostic uncertainty of [...] understanding of instructions via the language line certified court/medical interpreter Not available 01/28/2025 16:23:28 Plan of Treatment Reminders Order Date Submit Date Provider Last Modified By Organization Details Last Modified Time Details Appointments None recorded. Lab rapid SARS CoV 2 Ag, QL IA, respiratory specimen 2024 [facility], [address] [place] [address], [id number] 21:41:53 rapid flu (A+B) 2024 025 [facility], [address] [place] [address], [phone] 21:41:53 Referral None recorded. Procedures None recorded. Surgeries None recorded. Imaging None recorded. Medication Orders Saline Mist 0.65 % nasal spray aerosol 2024 [facility], [address] [place] [address], [id number], 16:28:02 guaifenesin ER 1,200 mg tablet, extended release 12 hr 2024 025 [facility], [address] [place] [address], [id number], 13:42:17 prednisone 20 mg tablet 2024 025 [facility], [address] [place] [address], [id number], 05:01:49 ondansetron 4 mg disintegrat ing tablet 2024 025 [facility], [address] [place] [address], [id number], 09:18:37 Patient TargetsNo targets recorded. Patient InstructionsNo [...] Name and Address Organization Details Recorded Time 56471 aspirin medicatio n Not available Not available Not available 05/29/2024 1191 RxNorm Not Available [facility] - production 13:30:18 85688 naproxen medicatio n Not available Not available Not available 05/29/2024 7258 RxNorm Not Available [facility] - production 13:30:18 56749 vancomyci n medicatio n rash moderate high 01/28/20252024 67954 RxNorm Not Available [facility] - External Data Service - prod 16:07:32 97039 azithromy beverly medicatio n Not available Not available Not available 01/28/20252024 36948 RxNorm Not Available [facility]. Data Service - prod 16:07:32 33158 naproxen medicatio n Not available Not available Not available 01/28/20252024 7258 RxNorm Qing Hughes MD [address] [facility],[address], [place], [address], [facility] - [facility] 16:08:46 31961 simvastat in medicatio n Not available Not available Not available 01/28/20252024 82275 RxNorm Not Available [employer] - External Data Service - prod 16:07:32 93983 onion extract food,medi cation Not available Not available low 01/28/20252024 25154 69 RxNorm Not Available [employer] - External Data Service - prod 16:07:32 20962 aluminum aspirin Not available Not available Not available Not available 01/28/20252009 611 RxNorm Other react ion(s ): face swell ed unrec ogniz ed react ion (text : Unkno wn, code: [id number]) (from e) Qing Hughes MD [address] [place] [address],[address], [place], [place], [address] [place] [address], [email or web address] 16:08:38 89214 cortisone medicatio n Not available Not available Not available 01/28/20252019 2878 RxNorm put is unsur e Qing Hughes MD [address] [place] [address],[address], [place], [address] [place] [address], [email or web address] 16:10:56 28578 doxycycli ne Not available Not available Not available Not available 01/28/20252021 3640 RxNorm unrec ogniz ed react ion (text : Unkno wn, code: [id number]) (from [facility]) Not Available [employer] - External Data Service - prod 16:07:47 Medications Name Sig Start Date Stop Date Status Note LastModified by Organization Details LastModified Time cyclobenzap rine 10 mg tablet TAKE 1 TABLET BY MOUTH THREE TIMES DAILY NEEDED FOR MUSCLE SPASMS FOR 7 DAYS, MAY CAUSE DROWSINES S DO NOT DRIVE WHILE TAKING active Not Available Not Available No t Available fluticasone 250 mcg-salmete rol 50 mcg/dose blistr powdr for inhalation INHALE 1 PUFF BY MOUTH TWICE DAILY. RINSE MOUTH AFTER USING. active Not Available Not Available No t Available atorvastati n 80 mg tablet TAKE 1 TABLET BY MOUTH AT BEDTIME active Not Available Not Available No t Available acetaminoph en 325 mg tablet TAKE 1 TO 2 [...] Not Available No t Available ipratropium 0.5 mg-albutero l 3 mg (2.5 mg base)/3 mL nebulizatio n soln INHALE AMPULE USING A NEBULIZER EVERY 6 HOURS NEEDED active Not Available Not Available No t Available Saline Mist 0.65 % nasal spray aerosol Take 2 sprays every 3-4 hours by nasal route as needed, for nasal congestio n. 2024 active Not Available Not Available Not Avai lable cetirizine 10 mg tablet TAKE 1 TABLET BY MOUTH EVERY EVENING active Not Available Not Available No t Available sulfamethox azole 400 mg-trimetho prim 80 mg tablet TAKE 1 TABLET BY MOUTH TWICE DAILY active Not Available Not Available No t Available ketotifen 0.025 % (0.035 %) eye drops INSTILL 1 DROP AFFECTED EYE(S) TWICE DAILY active Not Available Not Available No t Available hydrocodone 5 mg-acetamin ophen 325 mg tablet TAKE 1 TABLET BY MOUTH EVERY 4 TO 6 HOURS NEEDED FOR PAIN active Not Available Not Available No t Available enalapril maleate 20 mg tablet TAKE 1 TABLET BY MOUTH EVERY MORNING active Not Available Not Available No t Available senna 8.6 mg tablet TAKE 2 TABLETS BY MOUTH EVERY DAY AT BEDTIME NEEDED FOR CONSTIPAT ION active Not Available Not Available No t Available prednisone 20 mg tablet Take 2 tablets every day by oral route with meal(s) for 4 days. 02/08 completed Not Available Not Available Not Available gabapentin 400 mg capsule TAKE 1 CAPSULE BY MOUTH AT BEDTIME active Not Available Not Available No t Available clonazepam 1 mg tablet TAKE 1 TABLET BY MOUTH EVERY DAY AND TAKE 1/2 TABLET AT BEDTIME NEEDED active Not Available Not Available No t Available sulfamethox azole 800 mg-trimetho prim 160 mg tablet TAKE 1 TABLET BY MOUTH TWICE DAILY FOR 7 DAYS active Not Available Not Available No t Available tramadol 50 mg tablet TAKE 1 TABLET BY MOUTH TWICE DAILY IN THE MORNING AND AT BEDTIME NEEDED FOR SEVERE PAIN active Not Available Not Available No t Available acetaminoph en 500 mg tablet TAKE 1 TABLET BY MOUTH EVERY 8 HOURS NEEDED FOR PAIN FOR UP TO 5 DAYS active Not Available Not Available No t Available levothyroxi ne 75 mcg tablet TAKE 1 TABLET BY MOUTH EVERY MORNING active Not Available Not Available No t Available potassium chloride ER 20 mEq tablet,exte nded release(par t/cryst) TAKE 1 TABLET BY MOUTH TWICE DAILY IN THE MORNING AND IN THE EVENING active Not Available Not Available No t Available famotidine 20 mg tablet TAKE 1 TABLET BY MOUTH TWICE DAILY active Not Available Not Available No t Available metoclopram dat 5 mg tablet TAKE 1 TABLET BY MOUTH THREE TIMES DAILY active Not Available Not Available No t Available Proctozone- HC 2.5 % topical cream perineal applicator APPLY 1 APPLICATO RFUL RECTALLY TWICE DAILY FOR FOR HEMORRHOI DS active Not Available Not Available No t Available amlodipine 10 mg tablet TAKE 1 [...] Not Available Not Available No t Available clotrimazol e-betametha sone 1 %-0.05 % topical cream APPLY A THIN LAYER TO AFFECTED AREA(S) TWICE DAILY FOR ITCHING FOR 7 DAYS DIRECTED active Not Available Not Available No t Available lidocaine 5 % topical patch APPLY [...] Available No t Available omeprazole 20 mg capsule,del ayed release TAKE 1 CAPSULE BY MOUTH TWICE DAILY IN THE MORNING AND IN THE EVENING active Not Available Not Available No t Available magnesium citrate oral solution DRINK 1/2 BOTTLE AND WAIT 30 MINUTES IF NO BOWEL MOVEMENT THEN REPEAT active Not Available Not Available No t Available montelukast 10 mg tablet TAKE 1 [...] Not Available Not Available No t Available levofloxaci n 750 mg tablet TAKE 1 TABLET BY MOUTH ONCE DAILY UNTIL FINISHED active Not Available Not Available No t Available zolpidem 10 mg tablet TAKE 1 TABLET BY MOUTH AT BEDTIME NEEDED active Not Available Not Available No t Available methylpredn isolone 4 mg tablets in a dose pack TAKE DIRECTED active Not Available Not Available No t Available ondansetron 4 mg disintegrat ing tablet DISSOLVE 1 TABLET EVERY 8 HOURS NEEDED FOR NAUSEA AND VOMITING active Not Available Not Available No t Available fluticasone propionate 50 mcg/actuati on nasal spray,suspe nsion INSTILL 2 SPRAYS IN EACH NOSTRIL ONCE DAILY IN THE MORNING active Not Available Not Available No t Available doxycycline hyclate 100 mg tablet TAKE 1 TABLET BY MOUTH TWICE DAILY FOR 5 DAYS active Not Available Not Available No t Available risperidone 0.5 mg tablet TAKE 1 TABLET BY MOUTH TWICE DAILY active Not Available Not Available No t Available metoclopram dat 10 mg tablet TAKE 1 TABLET BY MOUTH THREE TIMES DAILY active Not Available Not Available No t Available amoxicillin 875 mg-potassiu m clavulanate 125 mg tablet TAKE 1 TABLET BY MOUTH TWICE DAILY FOR 7 DAYS active Not Available Not Available No t Available Ventolin HFA 90 mcg/actuati on aerosol inhaler INHALE 2 PUFFS BY MOUTH EVERY 4 TO 6 HOURS NEEDED FOR WHEEZING active Not Available Not Available No t Available buspirone 15 mg tablet TAKE 1 TABLET BY MOUTH THREE TIMES DAILY active Not Available Not Available No t Available Denta 5000 Plus 1.1 % cream APPLY TO TEETH TWICE DAILY DIRECTED active Not Available Not Available No t Available insulin lispro (U-100) 100 unit/mL subcutaneou s pen INJECT 4-6 UNITS NEEDED IF LA AZUCA ESTA CHINO DESPUES DE EMERITA PREDNISON E active Not Available Not Available No t Available Alcohol Prep Pads USE DIRECTED EVERY DAY active Not Available Not Available No t Available Spiriva with HandiHaler 18 mcg and inhalation capsules USE 1 CAPSULE FOR INHALATIO N ONCE A DAY DO NOT SWALLOW CAPSULE active Not Available Not Available No t Available glycerin (adult) rectal suppository INSERT 1 SUPPOSITO RY RECTALLY DAILY NEEDED FOR CONSTIPAT ION active Not Available Not Available No t Available olopatadine 0.2 % eye drops INSTILL 1 DROP IN EACH EYE ONCE DAILY active Not Available Not Available No t Available Glutose-15 40 % oral gel TAKE 15 GRAM BY MOUTH DIRECTED FOR LOW BLOOD SUGAR active Not Available Not Available No t Available peg 3350-electr olytes 236 gram-22.74 gram-6.74 gram-5.86 gram solution DRINK 240 ML BY MOUTH EVERY 10 MINUTES UNTIL CLEAR. DO NOT EXCEED 2000 ML (1/2 BOTTLE) active Not Available Not Available No t Available FreeStyle Lite Strips USE DIRECTED TO TEST BLOOD SUGAR FOUR TIMES DAILY active Not Available Not Available No t Available guaifenesin ER 1,200 mg tablet, extended release 12 hr Take 1 tablet every 12 hours by oral route as needed, for cough/con gestion. 2024 active Not Available Not Available Not Avai lable diclofenac 1 % topical gel APPLY 2 GRAMS TOPICALLY TO AFFECTED AREA(S) ONCE DAILY NEEDED FOR PAIN active Not Available Not Available No t Available [facility] 10 billion cell-200 mg sprinkle capsule TAKE 1 CAPSULE BY MOUTH DAILY active Not Available Not Available No t Available Certavite-A ntioxidant 18 mg-400 mcg tablet TAKE 1 TABLET BY MOUTH EVERY MORNING active Not Available Not Available No t Available Combivent Respimat 20 mcg-100 mcg/actuati on solution for inhalation INHALE 1 PUFF BY MOUTH EVERY 6 HOURS, RINSE MOUTH AFTER USING. active Not Available Not Available No t Available TRUEplus Lancets 33 gauge USE DIRECTED TO TEST BLOOD SUGAR FOUR TIMES DAILY active Not Available Not Available No t Available guaifenesin ER 600 mg tablet, extended release 12 hr TAKE 1 TABLET BY MOUTH TWICE DAILY IN THE MORNING AND AT BEDTIME NEEDED FOR COUGH OR FOR CONGESTIO N DO NOT BREAK, CRUSH, DISSOLVE OR CHEW active Not Available Not Available No t Available Trulicity 0.75 mg/0.5 mL subcutaneou s pen injector INJECT ONE PEN (=0.75MG) SUBCUTANE OUSLY ONCE A WEEK DIRECTED active Not Available [...] FlexTouch U-100 Insulin 100 unit/mL (3 mL) subcutaneou s pen INJECT 2 UNITS SUBCUTANE OUSLY THREE TIMES DAILY BEFORE MEALS active Not Available Not Available No t Available Baqsimi 3 mg/actuatio n nasal spray USE 1 SPRAY (3MG) IN ONE NOSTRIL FOR A PATIENT WITH SEVERE HYPOGLYCE PAM WHO IS NOT RESPONSIV E AND UNABLE SELF-BLANQUITA T WITH GLUCOSE. AFTERWARD S TURN ON SIDE. MAY REPEAT IN 15MINUTES IF PATIENT DOES NOT RESPOND. active Not Available Not Available No t Available FreeStyle Jalil 2 Sensor kit USE 1 sensor EVERY 14 DAYS active Not Available Not Available No t Available FreeStyle Jalil 2 [place] USE DIRECTED TO TEST BLOOD SUGAR EVERY 8 HOURS active Not Available Not Available No t Available Ozempic 1 mg/dose (4 mg/3 mL) subcutaneou s pen injector Inject 1 MG SUBCUTANE OUSLY EVERY 7 DAYS IN THE ABDOMEN, THIGHS OR UPPER ARM. ROTATE INJECTION SITES. active Not Available Not Available No t Available Paxlovid 300 mg (150 mg x 2)-100 mg tablets in a dose pack TAKE 2 TABLETS (300 MG) OF NIRMATREL VIR & 1 TABLET (100 MG) OF RITONAVIR BY MOUTH TWICE DAILY FOR 5 DAYS active Not Available Not Available No t Available Ozempic 2 mg/dose (8 mg/3 mL) subcutaneou s pen injector Inject 2 MG SUBCUTANE OUSLY EVERY 7 DAYS IN THE ABDOMEN, THIGHS OR UPPER ARM. ROTATE INJECTION SITES. active Not Available Not Available No t Available Mounjaro 2.5 mg/0.5 mL subcutaneou s pen injector INJECT ONE PEN (=2.5MG) SUBCUTANE OUSLY ONCE A WEEK DIRECTED active Not Available Not Available No t Available Ozempic 0.25 mg or 0.5 mg (2 mg/3 mL) subcutaneou s pen injector INJECT 0.5 MG SUBCUTANE OUSLY EVERY 7 DAYS IN THE ABDOMEN, THIGHS, OR UPPER ARM, ROTATE INJECTION SITES. active Not Available Not Available No t Available FreeStyle Jalil 3 [place] USE DIRECTED TO TEST BLOOD SUGAR active [...] /min 98 [degF] 126/83 mm[Hg] Not Available [facility] 16:18:21 Date Recorded Body temperature Oxygen saturation Heart rate Body weight Respiratory rate Body height Systolic And Diastolic Provider Name and Address Organization Details Last Updated DateTime 5 97.6 [degF] 95 % 82 /min 10847.8 88 g 16 /min 157.48 cm 122/84 mm[Hg] Not Available [facility] 17:32:44 Date Recorded Heart rate Oxygen saturation Body weight Respiratory rate Body temperature Body height Systolic And Diastolic Provider Name and Address Organization Details Last Updated DateTime 5 70 /min 96 % 80460.7 28 g 16 /min 98.3 [degF] 157.48 cm 130/87 mm[Hg] Not Available [facility] 16:02:16 Social History None recorded. Functional Status None recorded. Mental Status None recorded. Family History Nothing Reported. Medical History No medical history recorded. Gynecological HistoryNo gynecological history recorded. Obstetrics History GPAL:G 0 P 0 0 0 0 Past Encounters Encounter ID Performer Location Encounter Start Date Encounter Closed Date Diagnosis/Indication Diagnosis SNOMED-CT Code Diagnosis ICD10 Code Diagnosis IMO Codes Diagnosis Note [id number] Kathy Gonzalez MD Main - [facility] [address] [place] [phone] 05/29/2024 16:18:16 05/30/2024 23:53:07 Wound finding 311751552 Z51.89 [id number] Evaluation in the field was performed by my lay ups assembler colleague, as noted above, I provided real-time [...] shortness of breath, cough, chest pain, fever. [id number] MORGAN JAY MD [facility] [address] [address] 09/23/2024 17:32:41 09/23/2024 22:05:40 Nausea and vomiting [id number] R11.2 [id number] Qing Hughes MD [address] [address] 01/28/2025 16:02:13 01/31/2025 13:04:30 Upper respiratory tract finding [id number] R09.89 [id number] rapid covid/ flu negativepa tient afebrile lungs [...] further reduce congestion . states family can picker feeder rx today/pat has had prednisone before without [...] ID Guarantor Name 01/28/2025 1 [facility] - DOS ON OR AFTER 2022 - DUAL ELIGIBLE - LONG-TERM OPTIONS AND ONE CARE (MEDICARE REPLACEMENT/ADV ANTAGE - HMO) Nuvia Avinash [id number] Nuvia Da Silva Notes Date Note Type Note Provider Name and Address Organization Details Recorded Time 05/29/2024 text/html CRC Nurse Triage Notes (Tania Kan): Reason For Request: wound care after surgery Chief Complaints: Wound Care PMH: Diabetes Mellitus Type 2, Hyperlipidemia, Hypertension, Kidney Stones, Hysterectomy, Hypothyroidism, Asthma PMH Reviewed at 05/29/2024:30 Allergies Reviewed at 05/29/2024:30 Comments: Referral taken via Fixed Route Operator, patient calling in to place a [...] ...................... ...................... ...................... ...................... ...................... ...................... ......... Extras Casting Director Note From Albert Murphy: Arrived to find patient ambulating in her apartment. Patient AOX4, GCS 15, skin pink warm and dry. Patient Tajik speaking only. Centrifugal Machine Tender line used. Patient had hernia surgery on and is wondering if the steri strips are suppose to remain or if she needs to remove them. Educated patient that they stay and will fall off on their own. VS as noted. [facility] came on and was able to interact with patient. answered all questions for pt. Patient reassured. Red flags went over with pt. Patient denies any cp, sob, fevers. Incision looks clean and intact. ...................... ...................... ...................... ...................... ...................... ...................... ......... [facility] Consulted: Kathy Gonzalez ...................... ...................... ...................... ...................... ...................... ...................... ......... Disposition: Fulfilled Kathy Gonzalez MD [address] [facility],[address], [place], [address], [employer] 05/29/2024 16:25:31 09/23/2024 text/html ROS as noted in the [facility] CRC Nurse Triage Notes (Swapna Russo): [...] Stones, Hysterectomy, Hypothyroidism, Asthma PMH Reviewed at 09/23/2024: Allergies Reviewed at 09/23/2024:28 Comments: 64 y.o female c/o chest tightness [...] until assessment. POC glucose was 119. Primarily Tajik Speaking. Referral for GI upset, chest congestion/cough/weakn ess. Member aware. I provided information on the mobile health provider response time and advised the patient and/or caregiver to monitor reported signs and symptoms. I discussed the warning signs of when to seek emergency care. ...................... ...................... ...................... ...................... ...................... ...................... ......... Extras Casting Director Note From Sebastien Bliss: [facility] visit for female pt with complaint of vomiting. Visit was completed with spent grain dryer by phone. Pt reports single episode of [...] endorsing any shortness of breath. Consulted with [facility] Dr. Jay who prescribed some zofran sent to pt's pharmacy. Red flags relayed by Dr. Jay. Pt education provided. ...................... ...................... ...................... ...................... ...................... ...................... ......... [facility] Consulted: Morgan Jay ...................... ...................... ...................... ...................... ...................... ...................... ......... Disposition: Fulfilled MORGAN JAY MD [address] [facility],[address], [place], [address], [employer] 09/23/2024 20:39:32 01/28/2025 text/html ROS as noted [...] ABX but unsure which oneasked again with translator/interpreter but not sure again Extras Casting Director Organization Information for Lucas Oliveros Legal Name: [employer]. A ddress: [address], [place] [address], USMedical Director: Benjamín Arechiga [facility] No.: [id number] Extras Casting Director POC Test Results from Lucas Oliveros - ALS Rapid influenza antigen (16:00:23)Flu: - Rapid COVID antigen (16:00:24)COVID: - ...................... ...................... ...................... ...................... ...................... ...................... ......... Extras Casting Director Note From Lucas Oliveros: [facility] makes pt contact a 64 yo F CC of wheezing. [facility] uses translator/interpreter, obtains vital signs. PT tests negative for [...] antibiotics confirmed and listed on insted kelby. [facility] contacts [facility] and explains above mentioned. [facility] sends prescription of mucinex, saline spray, and [...] an appointment with her PCP. PT understands. MIH clear. [facility] Lab Orders: rapid SARS CoV 2 Ag, QL IA, respiratory specimen: Performed rapid flu (A+B): Performed ...................... ...................... ...................... ...................... ...................... ...................... ......... [facility] Consulted: Qing Hughes ...................... ...................... ...................... ...................... [...] during the visit Qing Hughes MD [address] [facility],[address], [place], [address], Ritot AWIDMONICA 01/29/2025 22:54:27 OBGyn Episode No OBEpisode recorded.
--- OUTSIDE RECORDS SUMMARY | 2025-02-16 12:39 | XMS_ITS | Encounter Summary ---
Author Organization [employer] Address [address] [facility] [address] [place] [address] Care Team Providers Care Nurses' Aide Name Role Phone Sariah Vickers Primary Care Provider Yuri Pierre PharmD Unavailable [phone] Basilio Hall MD Unavailable [phone] Ron Preciado MD Unavailable Felipe Alanis MD Unavailable Rosemary Moses NP Unavailable May Unavailable Reason for Visit * Reason Comments Med Refill Encounter Details Date Type Department Care Team (Late st Contact Info) Description 07/10/2023 Refill [facility] [address] [place] [address] Sariah Vickers ANP [address] [place] [address] Chronic SI joint pain Social History Tobacco [...] Description 04/04/2025 10:00 AM EST Telemedicine [facility] [address] [place] [address] Azeb Hall, RN [address] [place] [address] 05/10/2025 1:00 PM EDT Office Visit [facility] [address] [place] [address] Sariah Vickers ANP [address] [place] [address] documented as of this encounter Goals Goal [...] documented as of this encounter Care Teams Nurses' Aide Relationship Specialty Start Date End Date Sariah Vickers ANP [address] [place] [address] PCP - General Family Medicine 09/23/19 Yuri Pierre, PharmD [address] [place] [address] Pharmacist Internal Medicine 05/05/24 02/03/25 Basilio Hall MD [address] [place] [address] Cardiology 05/17/24 01/10/25 Ron Preciado MD [address] [place] [address] Pulmonary Disease 05/17/24 Felipe Alanis MD [address] [place] [address] Cardiology 01/11/25 Rosemary Moses NP [address] [place] [address] Urology 01/11/25May [address] [place] [address] Gastroenterology 01/11/25 documented as of this encounter
--- OUTSIDE RECORDS SUMMARY | 2025-02-16 12:39 | XMS_ITS | Encounter Summary ---
Author Organization [employer] Address [address] [facility] 7t [place] [address] Care Team Providers Care Floor Covering Contractor Name Role Phone Sariah Vickers Primary Care Provider Yuri Pierre PharmD Unavailable Basilio Hall MD Unavailable Ron Preciado MD Unavailable [phone] Felipe Alanis MD Unavailable Rosemary Moses NP Unavailable May Unavailable Reason for Visit * Reason Onset Date Comments Nurse Triage 12/24/2022 Encounter Details Date Type Department Care Team (Late st Contact Info) Description 12/24/2022 Telephone [facility] MEDICINE [address] [place] [address] Sariah Vickers ANP [address] [place] [address] Nurse Triage Social History Tobacco Use Types [...] the past 12 months, has t he [employer], gas, oil or water [employer] threatened to shut off services in your [...] - 12/24/2022 1:11 PM EST Called pt.via [employer] stroboroma operator [id number] Benjamin. Pt. States that she wants to [...] regimen and possible referral to a new Casting 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 [employer] due to pt. Not having jeremie in [...] accepted this outcome Please contact pt at [phone] documented in this encounter Plan of Treatment Upcoming Encounters Date Type Department Care Team (Late st Contact Info) Description 04/04/2025 10:00 AM EST Telemedicine [facility] CHC MED & PEDS 505 [place] [address] Azeb Hall, RN 505 [place] [address] 05/10/2025 1:00 PM EDT Office Visit [facility] MEDICINE [address] [place] [address] Sariah Vickers ANP [address] [place] [address] documented as of this encounter Goals Goal [...] on filedocumented in this encounter Care Teams Floor Covering Contractor Relationship Specialty Start Date End Date Sariah Vickers ANP [address] [place] [address] PCP - General Family Medicine 09/23/19 Yuri Pierre, MikeD [address] [place] [address] Pharmacist Internal Medicine 05/05/24 02/03/25 Basilio Hall MD 5[address] [place] [address] Cardiology 05/17/24 01/10/25 Ron Preciado MD [address] [place] [address] Pulmonary Disease 05/17/24 Felipe Alanis MD [address] 3rd [place] [address] Cardiology 01/11/25 Rosemary Moses NP [address] [place] [address] Urology 01/11/[address] 3rd [place] [address] Gastroenterology 01/11/25 documented as of this encounter
--- OUTSIDE RECORDS SUMMARY | 2025-02-16 12:39 | XMS_ITS | Encounter Summary ---
Author Organization [employer] Address 75 [facility] 7t [place] [address] Care Team Providers Care Fashion Director Party Plan Sales Name Role Phone Sariah Vickers Primary Care Provider Yuri Pierre PharmD Unavailable [phone] Basilio Hall MD Unavailable Ron Preciado MD Unavailable [phone] Felipe Alanis MD Unavailable [phone] Rosemary Moses NP Unavailable May Unavailable Reason for Visit * Reason Comments Med Refill Encounter Details Date Type Department Care Team (Late st Contact Info) Description 03/07/2023 Refill [facility] MEDICINE 230 [place], [place] [phone] Sariah Vickers ANP [address] [place] [address] Vertigo Social History Tobacco Use Types Packs/Day [...] the past 12 months, has t he [employer], gas, oil or water company threatened to [...] Info) Description 04/04/2025 10:00 AM EST Telemedicine [facility] CHC MED & PEDS 505 [place] [address] Azeb Hall, MARTIN 505 [place] [address] 05/10/2025 1:00 PM EDT Office Visit [facility] MEDICINE [address] [place] [address] Sariah Vickers ANP [address] [place] [address] documented as of this encounter Goals Goal [...] giddiness documented in this encounter Care Teams Fashion Director Party Plan Sales Relationship Specialty Start Date End Date Sariah Vickers ANP [address] [place] [address] PCP - General Family Medicine 09/23/19 Yuri Pierre, Dileep [address] [place] [address] Pharmacist Internal Medicine 05/05/24 02/03/25 Basilio Hall MD [address] [place] [address] Cardiology 05/17/24 01/10/25 Ron Preciado MD 5 [place] [address] Pulmonary Disease 05/17/24 Felipe Alanis MD [address] 3rd [place] [address] Cardiology 01/11/25 Rosemary Moses NP [address] [place] [address] Urology 01/11/25 Jodee Umm [address] 3rd [place] [address] Gastroenterology 01/11/25 documented as of this encounter
--- OUTSIDE RECORDS SUMMARY | 2025-02-16 12:39 | XMS_ITS | Encounter Summary ---
Author Organization [employer] Address 75 [facility] 7t [place] [address] Care Team Providers Care Mail Delivery Supervisor Name Role Phone Sariah Vickers Primary Care Provider Yuri Pierre PharmD Unavailable [phone] Basilio Hall MD Unavailable Ron Preciado MD Unavailable [phone] Felipe Alanis MD Unavailable Rosemary Moses NP Unavailable May Unavailable Reason for Visit * Reason Comments Med Refill Encounter Details Date Type Department Care Team (Late st Contact Info) Description 08/14/2022 Refill [facility] CHC MED & PEDS [address] [place] [address] Sariah Vickers ANP 230 [place] [address] Severe persistent asthma without complication Social History [...] Info) Description 04/04/2025 10:00 AM EST Telemedicine [facility] CHC MED & PEDS 505 [place] [address] Azeb Hall, RN 505 [place] [address] 05/10/2025 1:00 PM EDT Office Visit [facility] MEDICINE 230 [place] [address] Sariah Vickers ANP [address] [place] [address] documented as of this encounter Visit Diagnoses Diagnosis Severe persistent asthma without complication (HCC) documented in this encounter Care Teams Mail Delivery Supervisor Relationship Specialty Start Date End Date Sariah Vickers ANP [address] [place] [address] PCP - General Family Medicine 09/23/19 Yuri Pierre, MikeD [address] [place] [address] Pharmacist Internal Medicine 05/05/24 02/03/25 Basilio Hall MD 5[address] [place] [address] Cardiology 05/17/24 01/10/25 Ron Preciado MD 5 [place] [address] Pulmonary Disease 05/17/24 Felipe Alanis MD [address] 3rd [place] [address] Cardiology 01/11/25 Rosemary Moses NP [address] [place] [address] Urology 01/11/25 Jodee May [address] 3rd [place] [address] Gastroenterology 01/11/25 documented as of this encounter
--- OUTSIDE RECORDS SUMMARY | 2025-02-16 12:39 | XMS_ITS | Encounter Summary ---
Author Organization [employer] Address [address] [facility] 7t [place] [address] Care Team Providers Care Commercial Journeyman Electrician Name Role Phone Sariah Vickers Primary Care Provider [phone] Yuri Pierre PharmD Unavailable [phone] Basilio Hall MD Unavailable Ron Preciado MD Unavailable [phone] Felipe Alanis MD Unavailable Rosemary Moses NP Unavailable May Unavailable Reason for Visit * Reason Onset Date Comments Med Refill Durable Medical Equipment 07/15/2023 Foam M attress/Raised Toilet Seat Encounter Details Date Type Department Care Team (Late st Contact Info) Description 07/15/2023 Refill [facility] MEDICINE 230 [place], [place] [phone] Sariah Vickers ANP 230 [place] [address] Neck pain Social History Tobacco Use Types [...] via email by [facility] Orthopaedic Physician Assistant Arlin Baker. Please Advise. Good morning, Our [...] [facility] 505 [place] [address] Azeb Hall, RN 505 [place], [place] 05/10/2025 1:00 PM EDT Office Visit [facility] MEDICINE 230 [place] [address] Sariah Vickers ANP [address] [place] [address] documented as of this encounter Goals Goal [...] as of this encounter Care Teams Commercial Journeyman Electrician Relationship Specialty Start Date End Date Sariah Vickers ANP 230 [place] [address] PCP - General Family Medicine 09/23/19 Yuri Pierre, MikeD [address] [place] [address] Pharmacist Internal Medicine 05/05/24 02/03/25 Basilio Hall MD 5[address] [place] [address] Cardiology 05/17/24 01/10/25 Ron Preciado MD [address] [place] [address] [place] [address] Pulmonary Disease 05/17/24 Felipe Alanis MD [address] [place] [address] Cardiology 01/11/25 Rosemary Moses NP [address] [place] [address] Urology 01/11/[address] 3rd [place] [address] Gastroenterology 01/11/25 documented as of this encounter
--- OUTSIDE RECORDS SUMMARY | 2025-02-16 12:39 | XMS_ITS | Continuity of Care Document ---
Author Organization [facility] [employer] [facility] Address [address] [place] [id number] Care Team Providers Care Remnant Sorter Name Role Phone HIM CCA OTHER Unavailable Primary Care Provider [phone] Assessment Encounter Date Assessment Date Assessment LastModified by Organization Details LastModified Time 01/28/2025 01/28/2025 I provided real -time medical direction via phone for this encounter, and was available for additional phone based assistance as needed. I have reviewed and agree with the Assessment and Plan as documented by the Business Agent. We discussed the diagnostic uncertainty of home [...] understanding of instructions via the language line livestock farmer [id number] Not available 01/28/2025 16:23:28 Plan of Treatment Reminders Order Date Submit Date Provider Last Modified By Organization Details Last Modified Time Details Appointments None recorded. Lab rapid SARS CoV 2 Ag, QL IA, respiratory specimen 2024 025 [facility], [address] [place] [address], [id number] 21:41:53 rapid flu (A+B) 2024 025 [facility], [address] [place] [address], [id number] 21:41:53 Referral None recorded. Procedures None recorded. Surgeries None recorded. Imaging None recorded. Medication Orders Saline Mist 0.65 % nasal spray aerosol 2024 025 [facility], [address] [place], [id number], 16:28:02 guaifenesin ER 1,200 mg tablet, extended release 12 hr 2024 025 [facility], [address] [place], [place], [id number], 13:42:17 prednisone 20 mg tablet 2024 025 [facility], [address] [place], [place], [id number], 05:01:49 Patient TargetsNo targets recorded. Patient InstructionsNo instructions [...] Name and Address Organization Details Recorded Time 27396 aspirin medicatio n Not available Not available Not available 05/29/2024 1191 RxNorm Not Available [facility] - production 13:30:18 83996 naproxen medicatio n Not available Not available Not available 05/29/2024 7258 RxNorm Not Available [facility] - production 13:30:18 71190 vancomyci n medicatio n rash moderate high 01/28/20252024 33765 RxNorm Not Available [facility] - External Data Service - prod 16:07:32 32916 azithromy beverly medicatio n Not available Not available Not available 01/28/20252024 38888 RxNorm Not Available [facility] External Data Service - prod 16:07:32 13536 naproxen medicatio n Not available Not available Not available 01/28/20252024 7258 RxNorm Qing Hughes MD [address] [place] [address],[address], [place], [place], [address] [place] [address] 0, [facility] 16:08:46 25545 simvastat in medicatio n Not available Not available Not available 01/28/20252024 18405 RxNorm Not Available [facility] - External Data [employer] - prod 16:07:32 24861 onion extract food,medi cation Not available Not available low 01/28/20252024 62510 69 RxNorm Not Available [facility] - External Data Service - prod 16:07:32 77230 aluminum aspirin Not available Not available Not available Not available 01/28/20252009 611 RxNorm Other react ion(s ): face swell ed unrec ogniz ed react ion (text : Unkno wn, code: [id number]) (from exter [facility]) Qing Hughes MD [address] [place] [address],[address], [place], [address] [place] [address] 0, [facility] 16:08:38 17270 cortisone medicatio n Not available Not available Not available 01/28/20252019 2878 RxNorm put is unsur e Qing Hughes MD [address] [place] [address],[address], [place], [address] [place] [address] 0, [facility] 16:10:56 76721 doxycycli ne Not available Not available Not available Not available 01/28/20252021 3640 RxNorm unrec ogniz ed react ion (text : Unkno wn, code: [id number] 5006) (from exter nal sourc e) Not [...] Not Available Not Available No t Available [facility] 10 billion cell-200 [...] Available No t Available [employer] Jal[employer] 2 Herlong USE DIRECTED TO TEST BLOOD SUGAR EVERY [...] Available No t Available [employer]al[employer] 3 Herlong USE DIRECTED TO TEST BLOOD SUGAR active [...] Updated DateTime 5 70 /min 96 % 68431.7 28 g 16 /min 98.3 [degF] 157.48 [...] ICD10 Code Diagnosis IMO Codes Diagnosis Note 39941 Qing Hughes MD [facility] [address] [phone] 01/28/2025 16:02:13 01/31/2025 13:04:30 Upper respiratory tract finding 072561404 R09.89 [id number] rapid covid/ flu negativepa tient afebrile lungs [...] further reduce congestion . states family can machine operator picker rx today/pat has had prednisone before [...] Laws Member ID Guarantor Name 01/28/2025 1 [facility] - DOS ON OR AFTER 2022 - DUAL ELIGIBLE - RETIREMENT OPTIONS AND ONE CARE (MEDICARE REPLACEMENT/ADV ANTAGE - HMO) Nuvia Da Silva [id number] Nuvia Da Silva Notes Date Note Type [...] ABX but unsure which oneasked again with director of gift planning but not sure again Business Agent Organization Information for Lucas Oliveros Legal Name: [employer]. A ddress: [address] [place] [address], Medical Director: Benjamín Arechiga [facility] No.: [id number] Business Agent POC Test Results from Lucas Oliveros - RIP Rapid influenza antigen (16:00:23)Flu: - Rapid COVID antigen (16:00:24)COVID: - ..................... ..................... ..................... ..................... ..................... ..................... ............... Business Agent Note From Lucas Oliveros: [facility] makes pt contact a 64 yo F CC of wheezing. [facility] uses language translator, obtains vital signs. PT tests negative for [...] antibiotics confirmed and listed on insted kelby. [facility] contacts [facility] and explains above mentioned. [facility] sends prescription of mucinex, saline spray, and [...] an appointment with her PCP. PT understands. [facility] clear. [facility] Lab Orders: rapid SARS CoV 2 Ag, QL IA, respiratory specimen: Performed rapid flu (A+B): Performed ..................... ..................... ..................... ..................... ..................... ..................... ............... [facility] Consulted: Qing Hughes ..................... ..................... ..................... ..................... [...] 99 during the visit Qing Hughes MD [address] [place] [address],[address], [place], [phone], [employer] 01/29/2025 22:54:27 OBGyn Episode No OBEpisode recorded.
--- OUTSIDE RECORDS SUMMARY | 2025-02-16 12:39 | XMS_ITS | Encounter Summary ---
Author Organization [employer] Address 75 [facility] 7t [place] [address] Care Team Providers Care Park Worker Supervisor Name Role Phone Sariah Vickers Primary Care Provider Yuri Pierre PharmD Unavailable [phone] Basilio Hall MD Unavailable Ron Preciado MD Unavailable [phone] Felipe Alanis MD Unavailable Rosemary Moses NP Unavailable May Unavailable Reason for Visit * Reason Comments Med Refill Encounter Details Date Type Department Care Team (Late st Contact Info) Description 07/17/2022 Refill [facility] MEDICINE 230 [place] [address] Sariah Vickers ANP 230 [place] [address] Neck pain Social History Tobacco Use Types [facility] 505 [place] [address] Azeb Hall, MARTIN 505 [place] [address] 05/10/2025 1:00 PM EDT Office Visit [facility] MEDICINE 230 [place] [address] Sariah Vickers ANP 230 [place] [address] documented as of this encounter Visit Diagnoses Diagnosis Neck pain Cervicalgia documented in this encounter Care Teams Park Worker Supervisor Relationship Specialty Start Date End Date Sariah Vickers ANP [address] [place] [address] PCP - General Family Medicine 09/23/19 Yuri Pierre, MikeD [address] [place] [address] Pharmacist Internal Medicine 05/05/24 02/03/25 Basilio Hall MD [address] [place] [address] Cardiology 05/17/24 01/10/25 Ron Preciado MD [address] [place] [address] Pulmonary Disease 05/17/24 Felipe Alanis MD 11 [facility] 3rd [place] [address] Cardiology 01/11/25 Rosemary Moses NP [address] [place] [address] Urology 01/11/25 Jodee May [address] 3rd [place] [address] Gastroenterology 01/11/25 documented as of this encounter
--- OUTSIDE RECORDS SUMMARY | 2025-02-16 12:39 | XMS_ITS | Encounter Summary ---
Author Organization [employer] Address 75 [facility] 7t [place] [address] Care Team Providers Care Braille Teacher Name Role Phone Sariah Vickers Primary Care Provider Yuri Pierre PharmD Unavailable Basilio Hall MD Unavailable Ron Preciado MD Unavailable [phone] Felipe Alanis MD Unavailable [phone] Rosemary Moses NP Unavailable May Unavailable Reason for Visit * Reason Comments Med Refill Encounter Details Date Type Department Care Team (Late st Contact Info) Description 06/30/2023 Refill [facility] MEDICINE 230 [place] [address] Sariah Vickers ANP 230 [place] [address] Neck pain Social History Tobacco Use Types [...] Description 04/04/2025 10:00 AM EST Telemedicine [facility] CHC MED & PEDS 505 [place] [address] Azeb Hall, MARTIN 505 [place] [address] 05/10/2025 1:00 PM EDT Office Visit [facility] MEDICINE 230 [place] [address] Sariah Vickers ANP 230 [place] [address] documented as of this encounter Goals Goal [...] documented as of this encounter Care Teams Braille Teacher Relationship Specialty Start Date End Date Sariah Vickers ANP 230 [place] [address] PCP - General Family Medicine 09/23/19 Yuri Pierre, PharmD 230 [place] [address] Pharmacist Internal Medicine 05/05/24 02/03/25 Basilio Hall MD [address] [place] [address] Cardiology 05/17/24 01/10/25 Ron Preciado MD 5 [place] [address] Pulmonary Disease 05/17/24 Felipe Alanis MD [address] [place] [address] Cardiology 01/11/25 Rosemary Moses NP [address] [place] [address] Urology 01/11/[address] [place] [address] Gastroenterology 01/11/25 documented as of this encounter
--- OUTSIDE RECORDS SUMMARY | 2025-02-16 12:39 | XMS_ITS | Encounter Summary ---
Author Organization [employer] Address 75 [facility] 7t [place] [address] Care Team Providers Care Annealing Oven Operator Name Role Phone Sariah Vickers Primary Care Provider [phone] Yuri Pierre PharmD Unavailable Basilio Hall MD Unavailable Ron Preciado MD Unavailable [phone] Felipe Alanis MD Unavailable Roseamry Moses NP Unavailable May Unavailable Reason for Visit * Reason Comments Med Refill Encounter Details Date Type Department Care Team (Late st Contact Info) Description 07/10/2022 Refill [facility] MEDICINE 230 [place] [address] Sariah Vickers ANP 230 [place] [address] Vertigo Social History Tobacco Use Types Packs/Day [...] Info) Description 04/04/2025 10:00 AM EST Telemedicine [facility] CHC MED & PEDS 505 [place], [place] [phone] Azeb Hall, MARTIN 505 [place] [address] 05/10/2025 1:00 PM EDT Office Visit [facility] MEDICINE 230 [place] [address] Sariah Vickers ANP 230 [place] [address] documented as of this encounter Visit Diagnoses Diagnosis Vertigo Dizziness and giddiness documented in this encounter Care Teams Annealing Oven Operator Relationship Specialty Start Date End Date Sariah Vickers ANP [address] [place] [address] PCP - General Family Medicine 09/23/19 Yuri Pierre, MikeD [address] [place] [address] Pharmacist Internal Medicine 05/05/24 02/03/25 Basilio Hall MD 5[address] [place] [address] Cardiology 05/17/24 01/10/25 Ron Preciado MD 5 [place] [address] Pulmonary Disease 05/17/24 Felipe Alanis MD 11 [facility] 3rd [place] [address] Cardiology 01/11/25 Rosemary Moses NP [address] [place] [address] Urology 01/11/25 Jodee Umm [address] 3rd [place] [address] Gastroenterology 01/11/25 documented as of this encounter
--- OUTSIDE RECORDS SUMMARY | 2025-02-16 12:39 | XMS_ITS | Encounter Summary ---
Author Organization [employer] Address 75 [facility] 7t [place] [address] Care Team Providers Care Overnight Houseperson Name Role Phone Sariah Vickers Primary Care Provider Yuri Pierre PharmD Unavailable [phone] Basilio Hall MD Unavailable [phone] Ron Preciado MD Unavailable [phone] Felipe Alanis MD Unavailable [phone] Rosemary Moses NP Unavailable May Unavailable Reason for Visit * Reason Comments Med Refill Encounter Details Date Type Department Care Team (Late st Contact Info) Description 12/19/2022 Refill [facility] MEDICINE 230 [place] [address] Sariah Vickers ANP 230 [place] [address] Vertigo Social History Tobacco Use Types Packs/Day [...] the past 12 months, has t he [employer], gas, oil or water company threatened to [...] Info) Description 04/04/2025 10:00 AM EST Telemedicine [facility] CHC MED & PEDS 505 [place] [address] Azeb Hall, MARTIN 505 [place] [address] 05/10/2025 1:00 PM EDT Office Visit [facility] MEDICINE 230 [place] [address] Sariah Vickers ANP [address] [place] [address] documented as of this encounter Goals Goal [...] giddiness documented in this encounter Care Teams Overnight Houseperson Relationship Specialty Start Date End Date Sariah Vickers ANP 230 [place] [address] PCP - General Family Medicine 09/23/19 Yuri Pierre, Dileep 230 [place] [address] Pharmacist Internal Medicine 05/05/24 02/03/25 Basilio Hall MD 5[address] [place] [address] Cardiology 05/17/24 01/10/25 Ron Preciado MD 5 [place] [address] Pulmonary Disease 05/17/24 Felipe Alanis MD [address] 3rd [place] [address] Cardiology 01/11/25 Rosemary Moses NP [address] [place] [address] Urology 01/11/25 Jodee Umm [address] 3rd [place] [address] Gastroenterology 01/11/25 documented as of this encounter
--- OUTSIDE RECORDS SUMMARY | 2025-02-16 12:39 | XMS_ITS | Encounter Summary ---
Author Organization [facility] Address 75 [facility] 7t [place] [address] Care Team Providers Care Administrative Processor Name Role Phone Sariah Vickers Primary Care Provider Yuri Pierre PharmD Unavailable [phone] Basilio Hall MD Unavailable Ron Preciado MD Unavailable [phone] Felipe Alanis MD Unavailable Rosemary Moses NP Unavailable May Unavailable Reason for Visit * Reason Onset Date Comments Med Refill 03/04/2023 Encounter Details Date Type Department Care Team (Late st Contact Info) Description 03/04/2023 Telephone [facility] [address] [place], [place] [phone] Sariah Vickers ANP 230 [place] [address] Med Refill Social History Tobacco Use Types [...] the past 12 months, has t he [employer], gas, oil or water company threatened [...] 50 MG tablet To be sent to: [facility] [place], [place] - [address] [place] [address] documented in this encounter Plan of Treatment Upcoming Encounters Date Type Department Care Team ([facility] st Contact Info) Description 04/04/2025 10:00 AM EST Telemedicine [facility] 505 [place] [address] Azeb Hall, MARTIN 505 [place] [address] 05/10/2025 1:00 PM EDT Office Visit [facility] 230 [place] [address] Sariah Vickers ANP 230 [place] [address] documented as of this encounter Goals Goal [...] on filedocumented in this encounter Care Teams Administrative Processor Relationship Specialty Start Date End Date Sariah Vickers ANP 230 [place] [address] PCP - General Family Medicine 09/23/19 Yuri Pierre, MikeD [address] [place] [address] Pharmacist Internal Medicine 05/05/24 02/03/25 Basilio Hall MD 596 [place] [address] Cardiology 05/17/24 01/10/25 Ron Preciado MD 5 [place] [address] Pulmonary Disease 05/17/24 Felipe Alanis MD [address] [place] [address] Cardiology 01/11/25 Rosemary Moses NP [address] [place] [address] Urology 01/11/[address] [place] [address] Gastroenterology 01/11/25 documented as of this encounter
--- OUTSIDE RECORDS SUMMARY | 2025-02-16 12:39 | XMS_ITS | Encounter Summary ---
Author Organization [employer] Address 75 [facility] 7t [place] [address] Care Team Providers Care Flight Director Name Role Phone Sariah Vickers Primary Care Provider [phone] Yuri Pierre PharmD Unavailable [phone] Basilio Hall MD Unavailable Ron Preciado MD Unavailable [phone] Felipe Alanis MD Unavailable Rosemary Moses NP Unavailable May Unavailable Reason for Visit * Reason Comments Med Refill Encounter Details Date Type Department Care Team (Late st Contact Info) Description 05/23/2024 Refill [facility]S [address] [place] [address] Sariah Vickers ANP 230 [place] [address] Cervicalgia Social History Tobacco Use Types Packs/Day [...] [facility] 505 [place] [address] Azeb Hall, RN 505 [place] [address] 05/10/2025 1:00 PM EDT Office Visit [facility] 230 [place] [address] Sariah Vickers ANP 230 [place] [address] documented as of this encounter Goals Goal [...] as of this encounter Care Teams Flight Director Relationship Specialty Start Date End Date Sariah Vickers ANP 230 [place] [address] PCP - General Family Medicine 09/23/19 Yuri Pierre, PharmD 230 [place] [address] Pharmacist Internal Medicine 05/05/24 02/03/25 Basilio Hall MD 596 [place] [address] Cardiology 05/17/24 01/10/25 Ron Preciado MD 5 [place] [address] Pulmonary Disease 05/17/24 Felipe Alanis MD [address] [place] [address] Cardiology 01/11/25 Rosemary Moses NP [address] [place] [address] Urology 01/11/[address] [place] [address] Gastroenterology 01/11/25 documented as of this encounter
--- OUTSIDE RECORDS SUMMARY | 2025-02-16 12:39 | XMS_ITS | Encounter Summary ---
Author Organization [employer] Address 75 [facility] 7t [place] [address] Care Team Providers Care Fruit I Farmworker Name Role Phone Sariah Vickers Primary Care Provider Yuri Pierre PharmD Unavailable [phone] Basilio Hall MD Unavailable [phone] Ron Preciado MD Unavailable [phone] Felipe Alanis MD Unavailable Rosemary Moses NP Unavailable May Unavailable Reason for Visit * Reason Comments Med Refill Encounter Details Date Type Department Care Team (Late st Contact Info) Description 11/12/2024 Refill [facility] 230 [place] [address] Sariah Vickers ANP 230 [place] [address] Neck pain Social History Tobacco Use Types [...] Info) Description 04/04/2025 10:00 AM EST Telemedicine [facility] 505 [place] [address] Azeb Hall, RN 505 [place] [address] 05/10/2025 1:00 PM EDT Office Visit [facility] 230 [place] [address] Sariah Vickers, ANP 230 [place] [address] documented as of this encounter Goals Goal [...] as of this encounter Care Teams Fruit I Farmworker Relationship Specialty Start Date End Date Sariah Vickers ANP 230 [place] [address] PCP - General Family Medicine 09/23/19 Yuri Pierre, MikeD [address] [place] [address] Pharmacist Internal Medicine 05/05/24 02/03/25 Basilio Hall MD 596 [place] [address] Cardiology 05/17/24 01/10/25 Ron Preciado MD 5 [place] [address] Pulmonary Disease 05/17/24 Felipe Alanis MD 11 [facility] 3rd [place] [address] Cardiology 01/11/25 Rosemary Moses NP [address] [place] [address] Urology 01/11/25 Jodee May 11 [facility] 3rd [place] [address] Gastroenterology 01/11/25 documented as of this encounter
--- OUTSIDE RECORDS SUMMARY | 2025-02-16 12:39 | XMS_ITS | Encounter Summary ---
Author Organization [employer] Address 75 [facility] 7t [place] [address] Care Team Providers Care Solar System Designer Name Role Phone Sariah Vickers Primary Care Provider Yuri Pierre PharmD Unavailable Basilio Hall MD Unavailable Ron Preciado MD Unavailable [phone] Felipe Alanis MD Unavailable Rosemary Moses NP Unavailable May Unavailable Reason for Visit * Reason Onset Date Comments Referral 05/17/2022 Encounter Details Date Type Department Care Team (Late st Contact Info) Description 05/17/2022 Telephone [facility] MED[facility]INE [address], [place] [phone] Sariah Vickers ANP 230 [place] [address] Referral Social History Tobacco Use Types Packs/Day [...] guide to vertigo. Please contact pt at [phone] documented in this encounter Plan of Treatment Upcoming Encounters Date Type Department Care Team ([facility] st Contact Info) Description 04/04/2025 10:00 AM EST Telemedicine [facility] MED & PEDS [address] [place] [address] Azeb Hall, RN 505 [place] [address] 05/10/2025 1:00 PM EDT Office Visit [facility] MED[facility] [address] [place] [address] Sariah Vickers ANP 230 [place] [address] documented as of this encounter Visit Diagnoses Not on filedocumented in this encounter Care Teams Solar System Designer Relationship Specialty Start Date End Date Sariah Vickers ANP [address] [place] [address] PCP - General Family Medicine 09/23/19 Yuri Pierre, MikeD [address] [place] [address] Pharmacist Internal Medicine 05/05/24 02/03/25 Basilio Hall MD 596 [place] [address] Cardiology 05/17/24 01/10/25 Ron Preciado MD [address] [place] [address] Pulmonary Disease 05/17/24 Felipe Alanis MD [address] 3rd [place] [address] Cardiology 01/11/25 Rosemary Moses NP [address] [place] [address] Urology 01/11/25EllsworthMay [address] 3rd [place] [address] Gastroenterology 01/11/25 documented as of this encounter
--- OUTSIDE RECORDS SUMMARY | 2025-02-16 12:39 | XMS_ITS | Encounter Summary ---
Author Organization [employer] Address 75 [facility] 7t [place] [address] Care Team Providers Care Laborer Wood Preserving Plant Name Role Phone Sariah Vickers Primary Care Provider Yuri Pierre PharmD Unavailable [phone] Basilio Hall MD Unavailable Ron Preciado MD Unavailable [phone] Felipe Alanis MD Unavailable Rosemary Moses NP Unavailable May Unavailable Reason for Visit * Reason Comments Med Refill Encounter Details Date Type Department Care Team (Late st Contact Info) Description 05/21/2023 Refill [facility] MED[facility] 230 [place] [address] Sariah Vickers ANP 230 [place] [address] Neck pain Social History Tobacco Use Types [...] the past 12 months, has t he [employer], gas, oil or water [employer] threatened to shut off services in your [...] [facility] 505 [place] [address] Azeb Hall, MARTIN 505 [place] [address] 05/10/2025 1:00 PM EDT Office Visit [facility] 230 [place] [address] Sariah Vickers ANP 230 [place] [address] documented as of this encounter Goals Goal [...] Cervicalgia documented in this encounter Care Teams Laborer Wood Preserving Plant Relationship Specialty Start Date End Date Sariah Vickers ANP 230 [place] [address] PCP - General Family Medicine 09/23/19 Yuri Pierre, MikeD 230 [place] [address] Pharmacist Internal Medicine 05/05/24 02/03/25 Basilio Hall MD 5[address] [place] [address] Cardiology 05/17/24 01/10/25 Ron Preciado MD 5 [place] [address] Pulmonary Disease 05/17/24 Felipe Alanis MD 11 [facility] 3rd [place] [address] Cardiology 01/11/25 Rosemary Moses NP [address] [place] [address] Urology 01/11/25 Jodee May 11 [facility] 3rd [place] [address] Gastroenterology 01/11/25 documented as of this encounter
--- OUTSIDE RECORDS SUMMARY | 2025-02-16 12:39 | XMS_ITS | Encounter Summary ---
Author Organization [employer] Address 75 [facility] 7t [place] [address] Care Team Providers Care Diagnostic Technician Name Role Phone Sariah Vickers KAYLEE Primary Care Provider [phone] Yuri Pierre PharmD Unavailable Basilio Hall MD Unavailable [phone] Ron Preciado MD Unavailable [phone] Felipe Alanis MD Unavailable Rosemary Moses NP Unavailable May Unavailable Reason for Visit * Reason Comments Med Refill Encounter Details Date Type Department Care Team (Late st Contact Info) Description 11/11/2024 Refill [facility] 230 [place] [address] Yogesh Gomez, JOHN 230 [place] [address] Social History Tobacco Use Types Packs/Day Years [...] [facility] 505 [place] [address] Azeb Hall, MARTIN 505 [place] [address] 05/10/2025 1:00 PM EDT Office Visit [facility] 230 [place] [address] Sariah Vickers ANP 230 [place] [address] documented as of this encounter Goals Goal [...] documented as of this encounter Care Teams Diagnostic Technician Relationship Specialty Start Date End Date Sariah Vickers ANP 230 [place] [address] PCP - General Family Medicine 09/23/19 Yuri Pierre, MikeD [address] [place] [address] Pharmacist Internal Medicine 05/05/24 02/03/25 Basilio Hall MD 596 [place] [address] Cardiology 05/17/24 01/10/25 Ron Preciado MD 5 [place] [address] Pulmonary Disease 05/17/24 Felipe Alanis MD 11 [facility] 3rd [place] [address] Cardiology 01/11/25 Rosemary Moses NP [address] [place] [address] Urology 01/11/25 Umm [place]sworth 11 [facility] 3rd [place] [address] Gastroenterology 01/11/25 documented as of this encounter
--- OUTSIDE RECORDS SUMMARY | 2025-02-16 12:39 | XMS_ITS | Clinical Summary ---
Author Organization 175 [facility] Address 175 [place] [address] Phone Care Team Providers Care Laborer Tan House Name Role Phone Sariah Vickers NP Primary Care Provider [phone] Social History Tobacco Use Types Packs/Day Years Used Date Smoking Tobacco: Never Assessed Comments Unknown Sex and Gender Information Value Date Recorded Sex Assigned at Not on file Legal Sex Female 11:21 PM EST Gender Identity Not on file Sexual Orientation Not on file Plan of Treatment Upcoming Encounters Date Type Department Care Team ([facility] Contact Info) Description 04/18/2025 1:45 PM EST Office Visit Orthopedic Surgery [place] [address] [phone] Neto Anthony, DPEstefania [address] [address] Health Maintenance Due Date Last Done Comments [...] patient's age to complete this topic Insurance [facility] MEDICARE Member Subscriber Plan / Payer (Ef fective 2013-Present) Name:NUVIA DA SILVA Relation to Subscriber:Self Name:Nuvia Da Silva Payer ID:[id number] Group ID:[id number] Type:Not on file Address: [facility] [address] [id number] Care Teams Laborer Tan House Relationship Specialty Start Date End Date Sariah Vickers NP [address] [place] [phone] PCP - General 12/03/23
--- OUTSIDE RECORDS SUMMARY | 2025-02-16 12:39 | XMS_ITS | Encounter Summary ---
Author Organization [employer] Address 75 [facility] 7t [place] [address] Care Team Providers Care Strap Cutting 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 Name Role Phone Sariah Vickers KAYLEE Primary Care Provider Yuri Pierre PharmD Unavailable [phone] Basilio Hall MD Unavailable [phone] Ron Preciado MD Unavailable [phone] Felipe Alanis MD Unavailable [phone] Rosemary Moses NP Unavailable May Unavailable Reason for Visit * Reason Comments Med Refill Encounter Details Date Type Department Care Team (Late st Contact Info) Description 03/04/2023 Refill [facility] 230 [place], [place] [phone] Brittney Nava MD 230 [place], [place] [phone] Social History Tobacco Use Types Packs/Day Years [...] the past 12 months, has t he [email or web address], gas, oil or water [employer] threatened to shut off services in your [...] 04/04/2025 10:00 AM EST Telemedicine [facility] MED & PEDS 505 [place] [address] Azeb Hall, MARTIN 505 [place] [address] 05/10/2025 1:00 PM EDT Office Visit [facility] MEDICINE 230 [place] [address] Sariah Vickers, ANP 230 [place] [address] documented as of this encounter Goals Goal [...] on filedocumented in this encounter Care Teams Strap Cutting 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 Relationship Specialty Start Date End Date Sariah Vickers ANP 230 [place] [address] PCP - General Family Medicine 09/23/19 Yuri Pierre, Dileep 230 [place] [address] Pharmacist Internal Medicine 05/05/24 02/03/25 Basilio Hall MD 596 [place] [address] Cardiology 05/17/24 01/10/25 Ron Preciado MD 5 [place] [address] Pulmonary Disease 05/17/24 Felipe Alanis MD [address] 3rd [place] [address] Cardiology 01/11/25 Rosemary Moses NP [address] [place] [address] Urology 01/11/25 Jodee Umm [address] 3rd [place] [address] Gastroenterology 01/11/25 documented as of this encounter
--- OUTSIDE RECORDS SUMMARY | 2025-02-16 12:39 | XMS_ITS | Encounter Summary ---
Author Organization [employer] Address 75 [facility] 7t [place] [address] Care Team Providers Care Candle Wicker Name Role Phone Sariah Vickers Primary Care Provider Yuri Pierre PharmD Unavailable Basilio Hall MD Unavailable [phone] Ron Preciado MD Unavailable [phone] Felipe Alanis MD Unavailable Rosemary Moses NP Unavailable May Unavailable Reason for Visit * Reason Onset Date Comments Nurse Triage 01/14/2023 Encounter Details Date Type Department Care Team (Late st Contact Info) Description 01/14/2023 Telephone [facility] MED[facility] 230 [place] [address] Sariah Vickers ANP 230 [place] [address] Nurse Triage Social History Tobacco Use Types [...] the past 12 months, has t he [employer], gas, oil or water [employer] threatened to shut off services in your [...] 01/14/2023 9:26 AM EST Called pt. Via [employer] clinical transplant coordinator [id number] Kelly. Pt. States that she has been having a fire feeling in her legs. Its like A burning that goes down her legs . Pt. Unsure if it because of her Diabetes. Pt. Went to [facility] for pain on her left side [...] at 10am. Will send note to clinical urgent care to have note put in [...] Severe pain now, pt was seen at [facility] on 01/13 for pain in leg. Pt is still symptomatic The caller accepted this outcome Please contact pt at [phone] (traveling sales representative needed) documented in this encounter Plan of Treatment Upcoming Encounters Date Type Department Care Team ([facility] st Contact Info) Description 04/04/2025 10:00 AM EST Telemedicine [facility] MED [facility] PEDS 505 [place] [address] Azeb Hall RN 505 [place] [address] 05/10/2025 1:00 PM EDT Office Visit [facility] MED[facility]INE 230 [place] [address] Sariah Vickers ANP 230 [place] [address] documented as of this encounter Goals Goal [...] on filedocumented in this encounter Care Teams Candle Wicker Relationship Specialty Start Date End Date Sariah Vickers ANP [address] [place] [address] PCP - General Family Medicine 09/23/19 Yuri Pierre, PharmD 230 [place] [address] Pharmacist Internal Medicine 05/05/24 02/03/25 Basilio Hall MD 5[address] [place] [address] Cardiology 05/17/24 01/10/25 Ron Preciado MD 5 [place] [address] Pulmonary Disease 05/17/24 Felipe Alanis MD [address] 3rd [place] [address] Cardiology 01/11/25 Rosemary Moses NP [address] [place] [address] Urology 01/11/[address] 3rd [place] [address] Gastroenterology 01/11/25 documented as of this encounter
== END 2025-02-16 11:02 | disposition home or self-care (01) ==
LOC: HO.HMGAL 11:00
PROVIDERS: PCP Nurse Practitioner Primary Care; Visit Provider Registered Nurse Emergency
DX: J30.89 Other allergic rhinitis (principal)
CPT/HCPCS: 95117; 95165